=== PATIENT | male | born 1940 | race Caucasian/White ===

== ENCOUNTER → 2017-07-27 09:47 | Outpatient (CLI) | payer MEDICARE, SELFPAY ==
[2017-07-27 13:12] LABS: Absolute Lymphocyte Count 2.08 X10^3/ul (0.83-4.51); Absolute Neutrophil Count 6.6 X10^3/uL (2.0-7.7); Basophil# 0.03 X10^3/uL; Basophil% 0.3 % (0-1); Eosinophil# 0.07 X10^3/uL; Eosinophils% 0.7 % (0-5); Hematocrit 47.7 % (40-54); Hemoglobin 16.4 g/dl (13.0-16.5); Lymphocyte # 2.08 X10^3/ul (4.0); Lymphocyte % 21.4 % (19-41); Mean Corp Hgb Conc 34.4 g/gl (32-36); Mean Corpuscular Hgb 30.7 pg (27.0-32.0); Mean Corpuscular Volume 89.3 fL (80-94); Mean Platelet Vol. 11.6 fl (6.2-12.0); Monocyte# 0.85 X10^3/uL; Monocyte% 8.8 % (0-10); Neutrophil # 6.64 X10^3/uL (2.7-7.7); Neutrophil % 68.4 % (47-70); Platelet Count 273 K/mm3 (150-450); RBC Distribution Width CV 13.1 % (11.6-14.6); RBC Distribution Width SD 42.7 fl (35.1-43.9); Red Blood Count 5.34 M/mm3 (4.6-6.2); White Blood Count 9.7 K/mm3 (4.4-11.0)
[2017-07-27 13:13] LABS: POSITIVE COUNT NO; POSITIVE DIFFERENTIAL NO; POSITIVE MORPHOLOGY NO
[2017-07-27 13:39] LABS: ALB/GLOB Ratio 0.9 RATIO (0.9-2.4); AST(SGOT) 31 U/L (15-37); Alanine Aminotransfer ALT/SGPT 49 U/L (16-61); Albumin, Serum 3.8 g/dL (3.2-5.0); Alkaline Phosphatase 70 U/L (45-117); Anion Gap 13 (5-15); BUN 21 mg/dL (7-18); BUN/Creat Ratio 15.8 RATIO (10-20); Calcium,Total 8.9 mg/dL (8.5-10.1); Chloride 99 mmol/L (98-107); Creatinine, Serum 1.33 mg/dL (0.70-1.30); EST Glomerular Filtration Rate 56 mL/min (>60); Est Glom Filt Rate - Afr Amer 67 mL/min (>60); Globulin 4.2 g/dL (2.2-4.2); Glucose 326 mg/dL (74-106); Sodium Level 136 mmol/L (136-145); Thyroid Stim Hormone (TSH) 2.21 uIU/mL (0.358-3.74)
== END ==
PROVIDERS: Family Provider Family Medicine Geriatric Medicine; PCP Family Medicine Geriatric Medicine; Visit Provider Family Medicine Geriatric Medicine
DX: E11.9 Type 2 diabetes mellitus without complications (principal); I10 Essential (primary) hypertension
CPT/HCPCS: 36415; 80053; 84443; 85025

== ENCOUNTER → 2017-08-21 06:57 | Outpatient (CLI) | payer MEDICARE, SELFPAY ==
[2017-08-21 08:08] LABS: Albumin, Serum 3.7 g/dL (3.2-5.0); BUN 31 mg/dL (7-18); BUN/Creat Ratio 23.7 RATIO (10-20); Calcium,Total 9.3 mg/dL (8.5-10.1); Chloride 102 mmol/L (98-107); Creatinine, Serum 1.31 mg/dL (0.70-1.30); EST Glomerular Filtration Rate 57 mL/min (>60); Est Glom Filt Rate - Afr Amer 68 mL/min (>60); Glucose 260 mg/dL (74-106); Phosphorus 3.2 mg/dL (2.5-4.9); Sodium Level 137 mmol/L (136-145)
[2017-08-21 08:21] LABS: Protein, Urine (Random) 15.9 mg/dL (<11.9); Protein:Creat Ratio 356 mg/g CRE (0-200)
== END ==
PROVIDERS: Family Provider Family Medicine Geriatric Medicine; PCP Family Medicine Geriatric Medicine; Visit Provider Internal Medicine Nephrology
DX: E11.22 Type 2 diabetes mellitus with diabetic chronic kidney disease (principal); N18.3 Chronic kidney disease, stage 3 (moderate)
CPT/HCPCS: 36415; 80069; 82570; 84156

== ENCOUNTER → 2018-09-04 14:13 | Outpatient (CLI) | payer MEDICARE, SELFPAY ==
[2018-09-04 17:33] LABS: Absolute Neutrophil Count 5.3 X10^3/uL (2.0-7.7); Basophil# 0.01 X10^3/uL; Basophil% 0.1 % (0-1); Eosinophil# 0.08 X10^3/uL; Eosinophils% 0.9 % (0-5); Hematocrit 51.2 % (40-54); Lymphocyte % 27.2 % (19-41); Mean Corp Hgb Conc 33.2 g/gl (32-36); Mean Corpuscular Hgb 28.9 pg (27.0-32.0); Mean Corpuscular Volume 87.1 fL (80-94); Mean Platelet Vol. 11.6 fl (6.2-12.0); Monocyte# 0.95 X10^3/uL; Monocyte% 10.8 % (0-10); Neutrophil # 5.34 X10^3/uL (2.7-7.7); Neutrophil % 60.7 % (47-70); Platelet Count 276 K/mm3 (150-450); RBC Distribution Width CV 13.5 % (11.6-14.6); RBC Distribution Width SD 42.9 fl (35.1-43.9); Red Blood Count 5.88 M/mm3 (4.6-6.2); White Blood Count 8.8 K/mm3 (4.4-11.0)
[2018-09-04 17:49] LABS: ALB/GLOB Ratio 0.9 RATIO (0.9-2.4); AST(SGOT) 22 U/L (15-37); Alanine Aminotransfer ALT/SGPT 33 U/L (16-61); Alkaline Phosphatase 70 U/L (45-117); Anion Gap 8 (5-15); BUN 29 mg/dL (7-18); Calcium,Total 9.3 mg/dL (8.5-10.1); Chloride 100 mmol/L (98-107); Creatinine, Serum 1.32 mg/dL (0.70-1.30); EST Glomerular Filtration Rate 56 mL/min (>60); Est Glom Filt Rate - Afr Amer 68 mL/min (>60); Globulin 4.6 g/dL (2.2-4.2); Glucose 185 mg/dL (74-106); Potassium 4.2 mmol/L (3.5-5.1); Protein, Total 8.6 g/dL (6.4-8.2); Sodium Level 131 mmol/L (136-145); Thyroid Stim Hormone (TSH) 4.48 uIU/mL (0.358-3.74); Vitamin D,25 Hydroxy 16.6 ng/mL (29.95-100.01)
[2018-09-04 17:57] LABS: POSITIVE COUNT NO; POSITIVE DIFFERENTIAL NO; POSITIVE MORPHOLOGY NO
== END ==
PROVIDERS: Family Provider Family Medicine Geriatric Medicine; PCP Family Medicine Geriatric Medicine; Visit Provider Family Medicine Geriatric Medicine
DX: E11.9 Type 2 diabetes mellitus without complications (principal); E55.9 Vitamin D deficiency, unspecified; I10 Essential (primary) hypertension
CPT/HCPCS: 36415; 80053; 82306; 84443; 85025

== ENCOUNTER → 2018-10-17 | Outpatient (CLI) | payer MEDICARE, SELFPAY ==
[2018-10-17 13:01] LABS: Thyroid Stim Hormone (TSH) 2.27 uIU/mL (0.358-3.74)
== END | disposition home or self-care (01) ==
LOC: POLAB3 09:19
PROVIDERS: Family Provider Family Medicine Geriatric Medicine; PCP Family Medicine Geriatric Medicine; Visit Provider Family Medicine Geriatric Medicine
DX: E03.9 Hypothyroidism, unspecified (principal)
CPT/HCPCS: 36415; 84443

== ENCOUNTER → 2018-12-04 | Outpatient (CLI) | payer MEDICARE, SELFPAY ==
[2018-12-04 15:50] LABS: Absolute Lymphocyte Count 3.07 X10^3/ul (0.83-4.51); Absolute Neutrophil Count 5.2 X10^3/uL (2.0-7.7); Basophil# 0.01 X10^3/uL; Basophil% 0.1 % (0-1); Eosinophil# 0.08 X10^3/uL; Eosinophils% 0.9 % (0-5); Hematocrit 42.7 % (40-54); Hemoglobin 14.5 g/dl (13.0-16.5); Lymphocyte # 3.07 X10^3/ul (4.0); Lymphocyte % 33.1 % (19-41); Mean Corpuscular Hgb 30.2 pg (27.0-32.0); Mean Platelet Vol. 11.4 fl (6.2-12.0); Monocyte# 0.87 X10^3/uL; Monocyte% 9.4 % (0-10); Neutrophil # 5.22 X10^3/uL (2.7-7.7); Neutrophil % 56.2 % (47-70); Platelet Count 273 K/mm3 (150-450); RBC Distribution Width CV 14.4 % (11.6-14.6); RBC Distribution Width SD 46.7 fl (35.1-43.9); White Blood Count 9.3 K/mm3 (4.4-11.0)
[2018-12-04 15:53] LABS: POSITIVE COUNT NO; POSITIVE DIFFERENTIAL NO; POSITIVE MORPHOLOGY NO
[2018-12-04 16:21] LABS: ALB/GLOB Ratio 0.9 RATIO (0.9-2.4); AST(SGOT) 24 U/L (15-37); Alanine Aminotransfer ALT/SGPT 32 U/L (16-61); Albumin, Serum 3.9 g/dL (3.2-5.0); Alkaline Phosphatase 70 U/L (45-117); Anion Gap 14 (5-15); BUN 23 mg/dL (7-18); BUN/Creat Ratio 17.4 RATIO (10-20); Calcium,Total 8.9 mg/dL (8.5-10.1); Chloride 100 mmol/L (98-107); Creatinine, Serum 1.32 mg/dL (0.70-1.30); EST Glomerular Filtration Rate 56 mL/min (>60); Est Glom Filt Rate - Afr Amer 68 mL/min (>60); Globulin 4.3 g/dL (2.2-4.2); Glucose 94 mg/dL (74-106); Potassium 4.1 mmol/L (3.5-5.1); Protein, Total 8.2 g/dL (6.4-8.2); Sodium Level 139 mmol/L (136-145); Thyroid Stim Hormone (TSH) 3.03 uIU/mL (0.358-3.74)
== END | disposition home or self-care (01) ==
LOC: POLAB3 09:14
PROVIDERS: Visit Provider Family Medicine Geriatric Medicine
DX: E11.9 Type 2 diabetes mellitus without complications (principal); I10 Essential (primary) hypertension
CPT/HCPCS: 36415; 80053; 84443; 85025

== ENCOUNTER → 2019-03-04 10:14 | Outpatient (CLI) | payer MEDICARE, SELFPAY ==
[2019-03-04 17:11] LABS: Absolute Lymphocyte Count 2.01 X10^3/uL (0.83-4.51); Basophil# 0.02 X10^3/uL; Basophil% 0.2 % (0-1); Eosinophil# 0.08 X10^3/uL; Eosinophils% 0.9 % (0-5); Hematocrit 43.8 % (40-54); Hemoglobin 14.2 g/dL (13.0-16.5); Lymphocyte # 2.01 X10^3/ul (4.0); Lymphocyte % 22.1 % (19-41); Mean Corp Hgb Conc 32.4 g/dL (32-36); Mean Corpuscular Volume 92.6 fL (80-94); Monocyte# 0.96 X10^3/uL; Monocyte% 10.5 % (0-10); NRBC Flagged by Analyzer 0 % (0-5); Neutrophil % 65.9 % (47-70); Platelet Count 289 K/mm3 (150-450); RBC Distribution Width CV 13.5 % (11.6-14.6); RBC Distribution Width SD 45.9 fl (35.1-43.9); Red Blood Count 4.73 M/mm3 (4.6-6.2); White Blood Count 9.1 K/mm3 (4.4-11.0)
[2019-03-04 17:33] LABS: ALB/GLOB Ratio 0.9 RATIO (0.9-2.4); AST(SGOT) 24 U/L (15-37); Alanine Aminotransfer ALT/SGPT 29 U/L (16-61); Albumin, Serum 3.8 g/dL (3.2-5.0); Alkaline Phosphatase 67 U/L (45-117); Anion Gap 13 (5-15); BUN 19 mg/dL (7-18); BUN/Creat Ratio 13.7 RATIO (10-20); Calcium,Total 8.9 mg/dL (8.5-10.1); Chloride 102 mmol/L (98-107); Creatinine, Serum 1.39 mg/dL (0.70-1.30); EST Glomerular Filtration Rate 53 mL/min (>60); Est Glom Filt Rate - Afr Amer 64 mL/min (>60); Globulin 4.3 g/dL (2.2-4.2); Glucose 139 mg/dL (74-106); Potassium 4.2 mmol/L (3.5-5.1); Protein, Total 8.1 g/dL (6.4-8.2); Sodium Level 138 mmol/L (136-145); Thyroid Stim Hormone (TSH) 3.05 uIU/mL (0.358-3.74)
[2019-03-04 17:34] LABS: Vitamin D,25 Hydroxy 25.3 ng/mL (29.95-100.01)
== END ==
PROVIDERS: Family Provider Family Medicine Geriatric Medicine; PCP Family Medicine Geriatric Medicine; Visit Provider Family Medicine Geriatric Medicine
DX: E11.9 Type 2 diabetes mellitus without complications (principal); E55.9 Vitamin D deficiency, unspecified; I10 Essential (primary) hypertension
CPT/HCPCS: 36415; 80053; 82306; 84443; 85025

== ENCOUNTER → 2019-06-03 11:24 | Outpatient (CLI) | payer MEDICARE, SELFPAY ==
[2019-06-03 12:07] LABS: Absolute Lymphocyte Count 2.49 X10^3/uL (0.83-4.51); Basophil# 0.02 X10^3/uL; Basophil% 0.2 % (0-1); Eosinophil# 0.08 X10^3/uL; Eosinophils% 0.8 % (0-5); Hematocrit 42.5 % (40-54); Hemoglobin 13.9 g/dL (13.0-16.5); Lymphocyte # 2.49 X10^3/ul (4.0); Mean Corp Hgb Conc 32.7 g/dL (32-36); Mean Corpuscular Hgb 29.3 pg (27.0-32.0); Mean Corpuscular Volume 89.7 fL (80-94); Mean Platelet Vol. 10.4 fl (6.2-12.0); Monocyte# 0.96 X10^3/uL; NRBC Flagged by Analyzer 0 % (0-5); Neutrophil # 5.97 X10^3/uL (2.7-7.7); Neutrophil % 62.6 % (47-70); Platelet Count 321 K/mm3 (150-450); RBC Distribution Width CV 12.9 % (11.6-14.6); Red Blood Count 4.74 M/mm3 (4.6-6.2); White Blood Count 9.6 K/mm3 (4.4-11.0)
[2019-06-03 13:09] LABS: ALB/GLOB Ratio 0.8 RATIO (0.9-2.4); AST(SGOT) 18 U/L (15-37); Alanine Aminotransfer ALT/SGPT 29 U/L (16-61); Albumin, Serum 3.7 g/dL (3.2-5.0); Alkaline Phosphatase 75 U/L (45-117); Anion Gap 13 (5-15); BUN 17 mg/dL (7-18); BUN/Creat Ratio 13.4 RATIO (10-20); Calcium,Total 8.7 mg/dL (8.5-10.1); Chloride 100 mmol/L (98-107); Creatinine, Serum 1.27 mg/dL (0.70-1.30); EST Glomerular Filtration Rate 58 mL/min (>60); Est Glom Filt Rate - Afr Amer 71 mL/min (>60); Globulin 4.5 g/dL (2.2-4.2); Glucose 150 mg/dL (74-106); Protein, Total 8.2 g/dL (6.4-8.2); Sodium Level 134 mmol/L (136-145); Thyroid Stim Hormone (TSH) 3.26 uIU/mL (0.358-3.74)
== END ==
PROVIDERS: Family Provider Family Medicine Geriatric Medicine; PCP Family Medicine Geriatric Medicine; Visit Provider Family Medicine Geriatric Medicine
DX: E11.9 Type 2 diabetes mellitus without complications (principal); I10 Essential (primary) hypertension; E55.9 Vitamin D deficiency, unspecified
CPT/HCPCS: 36415; 80053; 82306; 84443; 85025

== ENCOUNTER 2019-08-21 14:42 | Emergency (ER) | payer MEDICARE, SELFPAY ==
[2019-08-21] VITALS (9 sets, daily range): BP systolic 93–111; BP diastolic 47–69; PULSE 95–115; RESP 15–18; TEMP 36.3–36.9; O2SAT 97–100; BMI 27.3
--- NOTE | 2019-08-21 15:19 | EKG12_ITS ---
Test Reason : FALL Blood Pressure : / mmHG Vent. Rate : 105 BPM Atrial Rate : 105 BPM P-R Int : 124 ms QRS Dur : 092 ms QT Int : 354 ms P-R-T Axes : 030 061 045 degrees QTc Int : 467 ms Sinus tachycardia Otherwise normal ECG Confirmed by ALINA LATHAM, SRINIVASAN ([id number]), photography editor RENATO BURGOS ([id number]) on 08/23/2019 8:05:51 AM Referred By: WOUND Confirmed By:LASHON FULLER MD
[2019-08-21 15:32] LABS: Absolute Lymphocyte Count 1.34 X10^3/uL (0.83-4.51); Absolute Neutrophil Count 23.8 X10^3/uL (2.0-7.7); Basophil# 0.04 X10^3/uL; Basophil% 0.1 % (0-1); Eosinophil# 0.02 X10^3/uL; Eosinophils% 0.1 % (0-5); Hematocrit 35.3 % (40-54); Hemoglobin 11.8 g/dL (13.0-16.5); Lymphocyte # 1.34 X10^3/ul (4.0); Lymphocyte % 4.9 % (19-41); Mean Corp Hgb Conc 33.4 g/dL (32-36); Mean Corpuscular Hgb 29.1 pg (27.0-32.0); Mean Corpuscular Volume 86.9 fL (80-94); Mean Platelet Vol. 9.6 fl (6.2-12.0); Monocyte# 1.41 X10^3/uL; Monocyte% 5.2 % (0-10); NRBC Flagged by Analyzer 0 % (0-5); Neutrophil # 23.81 X10^3/uL (2.7-7.7); Neutrophil % 87.3 % (47-70); POSITIVE DIFFERENTIAL YES; Platelet Count 494 K/mm3 (150-450); RBC Distribution Width CV 12.8 % (11.6-14.6); Red Blood Count 4.06 M/mm3 (4.6-6.2); White Blood Count 27.3 K/mm3 (4.4-11.0)
[2019-08-21 15:39] LABS: International Normalized Ratio 1.3; Prothrombin Time (Protime)PT. 16.4 SECONDS (11.7-14.9)
[2019-08-21 15:40] LABS: Partial Thromboplast Time 36.3 Seconds (24.1-36.2)
[2019-08-21 15:45] LABS: Differential Indicated SCAN CRITERIA MET
--- NOTE | 2019-08-21 15:50 | RAD_ITS ---
STUDY: X-RAY - RIGHT FOOT CLINICAL: Male, 79 years old. NECROTIC TOE AND FOOT AREA TECHNIQUE: 3 view(s) of the foot. COMPARISON: None. FINDINGS: Normal talus, and tarsal bones. Small calcaneal spur and posterior enthesophyte. Normal visualized subtalar, talonavicular, calcaneocuboid, tarsal and tarsometatarsal articulations. Normal metatarsi. Normal metatarsophalangeal joint of the great toe. Normal tibial and fibular sesamoid bones. Normal interphalangeal joint of the great toe. Normal phalanges of the great toe. Normal second through fifth metatarsophalangeal joints. Normal interphalangeal joints and phalanges of the lesser toes. Diffuse arterial calcification noted. There is diffuse soft tissue swelling of the hind and mid foot with scattered air bubbles consistent with gangrenous changes. RAD/Foot min 3 Views IMPRESSION: Soft tissue swelling and gangrenous changes without definitive evidence for acute osteomyelitis. Would recommend three-phase bone scan or MRI for further evaluation if clinically warranted Electronically Signed: Dakota Kendall MD at 16:09 EST , Service support ,
[2019-08-21 16:12] LABS: Differential Comment SCANNED
[2019-08-21 16:14] LABS: Erythrocyte Sedimentation Rate 28 mm/hr (0-20)
[2019-08-21] MEDS: 0.9% Normal Saline 1,000 ML 999 ML IV (16:38)
--- NOTE | 2019-08-21 16:42 | ED.VISSUMM ---
- ER Visit Summary Date of Service: 08/21/19 Chief Complaint: Right foot infection History of Present Illness: The patient is a [address] Reyes. He is a poor informant. He reports that he has an infection to his right foot that began 1 week ago. He denies any pain. He does have a history of diabetes. Patient denies any constitutional symptoms. No fever, chills, nausea, or vomiting. Physical Examination: Vitals: Stable. Afebrile. General: Well-nourished and well-developed. Head: Normocephalic atraumatic. Neck: Supple, no lymphadenopathy. No JVD. Nontender. Cardiovascular: Regular rate and rhythm. No murmurs. Respiratory: No respiratory distress. Clear to auscultation bilaterally. Abdominal: Soft, nontender, nondistended, normal bowel sounds. No guarding, rebound, or peritoneal signs. Back: Nontender. Extremities: No palpable DP pulse on the right. 1+ on the left. His foot is not pale or cold. He has dry gangrenous second and third toes on the right. The fourth and fifth toes are black. The sole of his foot is black up over the toes and extends up into the arch., no edema. Skin: Normal color, no rash. Neurologic: Alert and oriented ?3. Cranial nerves II through XII are intact. Normal strength and sensation. Psych: Normal affect. Test Results: EKG is sinus tach at 105. Is unchanged as 2001. CBC shows a white count of 27.3 with 87% segment neutrophils, 5 lymphocytes, immature granulocytes of 2.4%. H&H is 11.8 and 35.3, platelets 494. INR is 1.3. PTT is 36.3. Lactic acid is 2.7. Clinical Impression(s) from Imaging Studies Foot X-Ray 08/21/19 15:50 IMPRESSION: Soft tissue swelling and gangrenous changes without definitive evidence for acute osteomyelitis. Would recommend three-phase bone scan or MRI for further evaluation if clinically warranted Electronically Signed: Dakota Kendall MD at 16:09 EST , Service support , Emergency Department Course and Treatment: Patient had an IV placed. He was given a liter and half of normal saline. His blood pressure is now 115 systolic. His heart rate is into the 90s. He is given Zosyn, vancomycin, clindamycin IV. He denied any pain. Treatment Plan: Patient was discussed with Dr. Cantrell who asked that we transfer him to a tertiary care center. He decided on [facility]. He was discussed with Dr. Ramirez and has been accepted. He will be transferred for further evaluation and treatment. Disposition: Transferred in serious condition. Impression: 1. Severe sepsis. 2. Gangrenous right second and third toes. 3. Diabetic foot ulcer. 4. Critical care time 33 minutes. This note was generated with [employer] dictation software. It may contain incorrect words, spelling, and punctuation that were not noted in review of the chart prior to signing ED Disposition - Plan for ED Patient: Referrals: Dexter Reyes Chi, MD [Primary Care Provider] -
[2019-08-21 16:48] LABS: BUN 36 mg/dL (7-18); Glucose 250 mg/dL (74-106)
[2019-08-21 16:49] LABS: ALB/GLOB Ratio 0.4 RATIO (0.9-2.4); AST(SGOT) 48 U/L (15-37); Albumin, Serum 2.4 g/dL (3.2-5.0); Alkaline Phosphatase 137 U/L (45-117); BUN/Creat Ratio 23.4 RATIO (10-20); Calcium,Total 8.2 mg/dL (8.5-10.1); Creatinine, Serum 1.54 mg/dL (0.70-1.30); Estimated Creatinine Clearance 40.82 ml/min; Globulin 6.3 g/dL (2.2-4.2); Protein, Total 8.7 g/dL (6.4-8.2)
[2019-08-21 16:50] LABS: Alanine Aminotransfer ALT/SGPT 68 U/L (16-61); Anion Gap 10 (5-15); Chloride 96 mmol/L (98-107); Potassium 4.8 mmol/L (3.5-5.1); Sodium Level 128 mmol/L (136-145)
[2019-08-21 16:52] LABS: Lactic Acid 2.7 mmol/L (0.4-1.9)
[2019-08-21 16:52] LABS: EST Glomerular Filtration Rate 47 mL/min (>60); Est Glom Filt Rate - Afr Amer 57 mL/min (>60)
[2019-08-21 17:45] LABS: M R Staph aureus DNA By PCR Negative (Negative); Probe Check PASS; Specimen Processing Control PASS; Staph aureus DNA By PCR NEGATIVE (Negative)
[2019-08-21 19:16] LABS: Reflex Lactate? Y
== END 2019-08-21 17:12 | disposition short-term general hospital (02) ==
LOC: ED 15:37
PROVIDERS: Emergency Provider Emergency Medicine; PCP Family Medicine Geriatric Medicine
DX: A41.9 Sepsis, unspecified organism (principal); R65.20 Severe sepsis without septic shock; E11.52 Type 2 diabetes mellitus with diabetic peripheral angiopathy with gangrene; E11.621 Type 2 diabetes mellitus with foot ulcer; I96 Gangrene, not elsewhere classified; I10 Essential (primary) hypertension; Z87.891 Personal history of nicotine dependence
CPT/HCPCS: 73630; 80053; 83605; 85025; 85610; 85652; 85730; 86140; 87040; 87070; 87205; 87640; 93005; 94760; 96365; 96366; 96367; 99285; J7030; J7050; A4216

== ENCOUNTER 2019-09-11 14:23 | Inpatient (IN) | payer MEDICARE, SELFPAY ==
[2019-08-21 14:44] VITALS: BMI 27.3
[2019-09-11 14:36] VITALS: BP 115/54; PULSE 88; RESP 18; TEMP 37.6; O2SAT 96
[2019-09-11 14:38] VITALS: BMI 26.9
[2019-09-11 16:34] VITALS: BMI 28.2
[2019-09-11] MEDS: Insulin Lispro 100 UNIT/ML INSULN.PEN 6 UNIT SC (16:42)
[2019-09-11] MEDS: Glimepiride 4 MG Tablet PO (16:42)
[2019-09-11 17:25] LABS: Bedside Glucose 92 mg/dL (70-110)
[2019-09-11 18:29] LABS: Bacteria 0 SEEN /hpf (None Seen); Mucous, Urine 0 SEEN /hpf (<or=2+); Red Blood Cells-Urine 0 SEEN /hpf (0-5); Squamous Epithelial Cells - UA 0 SEEN /hpf (0-5)
[2019-09-11 18:35] LABS: Color, Urine Yellow (Yellow); Glucose, Dipstick Normal (Normal); Ketone-Dipstick Negative (Negative); Leukocyte Esterase-Dipstick Negative /ul (Negative); Nitrite-Dipstick Negative (Negative); Occult Blood-Urine Negative /ul (Negative); Protein-Dipstick 15 mg/dl (Negative); Specific Gravity, Urine 1.005 (1.002-1.030); Urine Bilirubin Dipstick Negative (Negative); Urine Clarity Clear (Clear); Urine Urobilinogen Normal (Normal)
[2019-09-11 18:40] VITALS: O2SAT 96
[2019-09-11 18:41] LABS: White Blood Cells 0-5 SEEN /hpf (0-5)
[2019-09-11] MEDS: metFORMIN HCl 1,000 MG Tablet 1000 MG PO (19:01)
[2019-09-11] MEDS: oxyCODONE 5 MG Tablet PO (20:31)
[2019-09-11 20:34] VITALS: BP 108/70; PULSE 91; RESP 18; TEMP 37.1; O2SAT 95
[2019-09-11 22:00] VITALS: RESP 18; O2SAT 95
[2019-09-11] MEDS: Heparin Injection (Vial) 5,000 UNIT/ML VIAL 5000 UNIT SC (22:04)
[2019-09-11] MEDS: Senna/Docusate Sodium 1 Tablet 2 TABLET PO (22:06)
[2019-09-11] MEDS: Acetaminophen 500 MG Tablet 1000 MG PO (22:06)
[2019-09-11] MEDS: Atorvastatin Calcium 40 MG Tablet PO (22:06)
[2019-09-11] MEDS: Gabapentin 100 MG Capsule PO (22:06)
[2019-09-11 22:31] LABS: Bedside Glucose 217 mg/dL (70-110)
[2019-09-12 05:06] LABS: Absolute Lymphocyte Count 2.14 X10^3/uL (0.83-4.51); Absolute Neutrophil Count 5.8 X10^3/uL (2.0-7.7); Basophil# 0.02 X10^3/uL; Basophil% 0.2 % (0-1); Eosinophil# 0.13 X10^3/uL; Eosinophils% 1.3 % (0-5); Hemoglobin 8.8 g/dL (13.0-16.5); Lymphocyte # 2.14 X10^3/ul (4.0); Lymphocyte % 21.9 % (19-41); Mean Corp Hgb Conc 31.4 g/dL (32-36); Mean Corpuscular Hgb 28.9 pg (27.0-32.0); Mean Corpuscular Volume 92.1 fL (80-94); Mean Platelet Vol. 8.8 fl (6.2-12.0); Monocyte# 1.43 X10^3/uL; Monocyte% 14.6 % (0-10); NRBC Flagged by Analyzer 0.3 % (0-5); Neutrophil # 5.82 X10^3/uL (2.7-7.7); Neutrophil % 59.6 % (47-70); Platelet Count 456 K/mm3 (150-450); RBC Distribution Width CV 15.9 % (11.6-14.6); RBC Distribution Width SD 52.1 fl (35.1-43.9); Red Blood Count 3.04 M/mm3 (4.6-6.2); White Blood Count 9.8 K/mm3 (4.4-11.0)
[2019-09-12 05:27] LABS: ALB/GLOB Ratio 0.4 RATIO (0.9-2.4); AST(SGOT) 79 U/L (15-37); Alanine Aminotransfer ALT/SGPT 55 U/L (16-61); Albumin, Serum 2.3 g/dL (3.2-5.0); Alkaline Phosphatase 89 U/L (45-117); Anion Gap 9 (5-15); BUN 31 mg/dL (7-18); BUN/Creat Ratio 34.6 RATIO (10-20); Calcium,Total 8.6 mg/dL (8.5-10.1); Chloride 100 mmol/L (98-107); EST Glomerular Filtration Rate 87 mL/min (>60); Est Glom Filt Rate - Afr Amer 106 mL/min (>60); Estimated Creatinine Clearance 69.85 ml/min; Globulin 5.3 g/dL (2.2-4.2); Glucose 174 mg/dL (74-106); Magnesium 1.3 mg/dL (1.6-2.6); Protein, Total 7.6 g/dL (6.4-8.2); Sodium Level 137 mmol/L (136-145)
[2019-09-12] MEDS: Acetaminophen 500 MG Tablet 1000 MG PO ×3 (06:25→21:22)
[2019-09-12] MEDS: Levothyroxine 25 MCG TABLET PO (06:25)
[2019-09-12] MEDS: Gabapentin 100 MG Capsule PO ×3 (06:25→21:23)
[2019-09-12 07:00] LABS: Bedside Glucose 144 mg/dL (70-110)
[2019-09-12 07:16] VITALS: O2SAT 92
[2019-09-12] MEDS: oxyCODONE 5 MG Tablet PO ×2 (07:47→20:45)
[2019-09-12] MEDS: Lisinopril 10 MG Tablet PO (07:47)
[2019-09-12] MEDS: Pioglitazone Hydrochloride 30 MG Tablet PO (07:47)
[2019-09-12] MEDS: Senna/Docusate Sodium 1 Tablet 2 TABLET PO ×2 (07:47→21:22)
[2019-09-12] MEDS: Aspirin E.C. 81 MG Tablet PO (07:49)
[2019-09-12] MEDS: metFORMIN HCl 1,000 MG Tablet 1000 MG PO ×2 (07:49→16:56)
[2019-09-12] MEDS: Insulin Lispro 100 UNIT/ML INSULN.PEN 6 UNIT SC ×3 (07:50→16:56)
[2019-09-12] MEDS: Glimepiride 4 MG Tablet PO (07:50)
[2019-09-12] MEDS: Heparin Injection (Vial) 5,000 UNIT/ML VIAL 5000 UNIT SC (07:50)
[2019-09-12 08:14] VITALS: BP 155/64; PULSE 103; RESP 18; TEMP 36.8; O2SAT 96
--- NOTE | 2019-09-12 08:35 | PCM.HP.STD ---
Problem List (1) Diabetes mellitus type 2, uncontrolled Status: Chronic Qualifiers: Glycemic state: with hyperglycemia Qualified Code(s): E11.65 - Type 2 diabetes mellitus with hyperglycemia (2) Peripheral vascular disease Status: Chronic (3) History of right below knee amputation Status: Chronic Comment: 09/05/2019 (4) Coronary artery disease Status: Chronic (5) Hypertension Status: Chronic Qualifiers: Hypertension type: essential hypertension Qualified Code(s): I10 - Essential (primary) hypertension (6) Overweight (BMI 25.0-29.9) Status: Chronic (7) Malnutrition Status: Acute Qualifiers: Malnutrition type: protein-calorie malnutrition (8) Hypothyroidism Status: Acute (9) Hyperlipidemia Status: Acute (10) Tobacco dependence in remission Status: Chronic Comment: quit in (11) Edentulous Status: Chronic (12) H/O endarterectomy Status: Acute Comment: R femoral on 09/02/19 (13) Acute blood loss anemia Status: Acute (14) Vitamin D deficiency Status: Chronic (15) Decubitus ulcer, stage II Status: Acute Qualifiers: Laterality: left Comment: lateral malleolus History of Present Illness Date of Admission: 09/11/19 Chief Complaint: Debility secondary to right BKA on 09/05/2019 for necrotic R foot and PVD The patient is a 79 year old M with a history of poorly controlled diabetes mellitus, peripheral arterial disease, coronary artery disease, hypertension, obesity, hyperlipidemia, hypothyroidism, remote smoking history (quit in the mid ) and recent R BKA and R femoral artery endarterectomy at [facility] who was admitted to the inpt rehab unit at [facility] on 09/11/19 for > 3 hours of therapy daily to restore him at or near his prior level of function. He lives alone in a mobile home. He has 4 steps to enter his home but there is also a ramp. He was using a WC for several weeks prior to coming to the ED on 08/21/19. He has a Rollator and manual wheelchair at home. He has 2 children who can provide some assistance to him when he returns home. He tells me that he had a stress test at [facility] and it was negative. This was not part of the packet sent to us. He also relates that his R leg was the good Leg and he has knee and hip pain on the left. He denied R leg pain to me at the time of my assessment. He is sleeping well and he denies N/V/abd pain/C/SOB/CP. No cough and no fevers. He was at [facility] for a period of 3 weeks. All lab was personally reviewed today. The hemoglobin is 8.8 with an MCV of 92. The RDW is increased. Platelets are mildly increased at 456 and this is likely secondary to inflammation. White blood cell count is 9.8 with an unremarkable differential. Hemoglobin on 08/21/2019 was 11.8 which was down from 13.9 on 06/03/2019. CMP shows an increased BUN at 31 with a creatinine of 0.9. Magnesium is low at 1.3. AST is mildly increased at 79 (likely due to muscle and not liver). Lipid panel shows triglycerides of 153, total cholesterol of 80, LDL of 27 and a low HDL at 22. UA was negative for infection and there were 0 RBCs. He has protein in his urine. He was only checking his BS once a day at home and this was fasting. He admits to drinking chocolate milk. He is going to need diet education. Past Medical History Past Medical History (Chronic Problems): Chronic Problems (Last Reviewed 09/12/19 @ 08:[address] Kyara King DO) Diabetes mellitus type 2, uncontrolled (Chronic) Peripheral vascular disease (Chronic) History of right below knee amputation (Chronic) 09/05/2019 Coronary artery disease (Chronic) Hypertension (Chronic) Overweight (BMI 25.0-29.9) (Chronic) Tobacco dependence in remission (Chronic) quit in Edentulous (Chronic) Vitamin D deficiency (Chronic) Medical History: Medical History (Last Reviewed 09/12/19 @ 08:[address] Kyara King DO) Diabetes E11.9 Dyslipidemia E78.5 Gangrene of right foot I96 Hypothyroid E03.9 Hypertension I10 Allergies No Known Allergies Allergy (Verified 08/21/19 14:43) Home Medications: Ambulatory Orders Medication Instructions Recorded Acetaminophen [Tylenol] 1,000 mg PO Q8 09/11/19 Aspir 81 1 tab PO DAILY 09/11/19 Atorvastatin Calcium [Lipitor] 40 mg PO DAILY 09/11/19 Gabapentin [Neurontin] 1 cap PO Q8 09/11/19 Glimepiride 4 mg PO BID 09/11/19 Levothyroxine [Synthroid] 25 mcg PO DAILY 09/11/19 Lisinopril [Prinivil] 10 mg PO DAILY 09/11/19 Metformin HCl 1,000 mg PO BID 09/11/19 Oxycodone [Oxyir] 5 mg PO Q6H PRN PRN 09/11/19 Pioglitazone [Actos] 30 mg PO DAILY 09/11/19 Surgical History: Surgical History (Last Reviewed 09/12/19 @ 08:[address] Kyara King, DO) Amputation below knee S88.119A Psychiatric History: No pertinent psych hx Lives: Alone Smoking Status: Former smoker - quit in the Tobacco Use: Non-smoker Alcohol: Heavy - he used to drink more heavily. No he drinks 1-2 beers 2-3 times a week at the 80 [facility] Drugs: None - *Family History Maternal History Items: No pertinent history Paternal History Items: No pertinent history, - - he is 79 years old and FH (which he knows little about is not really relavent at this stage of his life Review of Systems Constitutional: Reports: Weakness. Denies: Anorexia, Chills, Fever, Malaise, Weight Change Eyes: Denies: Eyelid Inflammation HEENT: Denies: Difficulty Swallowing, Head Aches, Nasal Congestion, Sinus Congestion, Sinus Drainage, Sore Throat Cardiovascular: Denies: Chest Pain, Chest Pressure, Chest Tightness, Edema, Light Headedness, Orthopnea, Palpitations, Paroxysmal Noc. Dyspnea, Syncope Respiratory: Reports: Shortness of Breath, Shortness of breath upon exertion. Denies: Cough, Pleuritic Pain, Shortness of breath at rest, Sputum production Gastrointestinal: Denies: Abdominal Pain, Constipation, Diarrhea, Nausea, Vomiting Genitourinary: Denies: Dysuria, Hesitancy, Retention Musculoskeletal: Reports: Joint Pain - Left hip and knee. Denies: Joint Tenderness Skin: Reports: Wounds - Incision for R BKA and unstageable decub of the L lateral ankle due to eschar. Denies: Rash Neurological: Denies: Focal weakness, Numbness, Tingling, Seizures Psychiatric: Denies: Anxiety, Depression, Homicidal Ideations, Suicidal Ideations Hematologic/ Lymphatic: Denies: Easy Bruising, Easy Bleeding, Hx of blood clot VTE Information - Inpt Only VTE Present on Admission: No VTE Mechan Device Prophylaxis: Knee High EDI Hose VTE Pharm Prophylaxis ordered?: Yes Patient Problems: Active and Suspected Problems (Last Reviewed 09/12/19 @ 08:[address] Kyara King, DO) Malnutrition (Acute) Hypothyroidism (Acute) Hyperlipidemia (Acute) H/O endarterectomy (Acute) R femoral on 09/02/19 Acute blood loss anemia (Acute) Decubitus ulcer, stage II (Acute) lateral malleolus - Physical Exam Vitals/I&O's: Vital Signs Temp Pulse Resp BP Pulse Ox 98.3 F 103 H 18 155/64 H 96 09/12/19 08:14 09/12/19 08:14 09/12/19 08:14 09/12/19 08:14 09/12/19 08:14 Oxygen Delivery Method Room Air Weight: 196 lb 10.437 oz Body Mass Index (BMI) 28.2 Intake and Output for Last 24 Hours 09/10/19 09/11/19 09/12/19 23:59 23:59 23:59 Intake Total 360 / 360 1060 / 1060 Output Total 400 / 400 1025 / 1025 Balance -40 / -40 35 / 35 General: Alert, Oriented x3, Cooperative, No apparent distress, Well developed, Well nourished HEENT: Atraumatic, PERRLA, EOMI, Normocephalic Oral: No Gingival or Mucosal Lesions/ Ulcerations, Dry Mucosa Neck: Supple, No JVD, Negative Carotid Bruits, No Nodes, No Nuchal Rigidity, Trachea Midline Lungs: Clear to auscultation, Normal air movement, No rhonchi, No wheeze, No rales Cardiovascular: Regular rate, Regular Rhythm, Normal S1, Normal S2, No murmurs, No Ectopic Activity, No rub noted, No Gallop Abdomen: Bowel Sounds Present, Soft, Non Tender, Non-Distended, - - No guarding with palpation Extremities: No clubbing, No cyanosis, No edema, Capillary Refill Less than 3 Seconds, No Calf Tenderness Skin: No rashes, No breakdown, Ulcer/ Wound - R BKA incision and the Left lateral malleolus decub Musculoskeletal: No Tenderness to Palpation of Joints or Extremities Neurological: Cranial nerves II-XII grossly intact, Neuro grossly intact Psych/Mental Status: Normal Affect, Appropriate Laboratory Results 09/11/19 16:41: POC Glucose 92 09/11/19 18:20: Urine Color Yellow, Urine Clarity Clear, Urine pH 7.0, Ur Specific [place] 1.005, Urine Protein 15 H, Urine Glucose (UA) Normal, Urine Ketones Negative, Urine Occult Blood Negative, Urine Nitrite Negative, Urine Bilirubin Negative, Urine Urobilinogen Normal, Ur Leukocyte Esterase Negative, Urine RBC 0 SEEN, Urine WBC 0-5 SEEN, Ur Squamous Epith Cells 0 SEEN, Urine Bacteria 0 SEEN, Urine Mucus 0 SEEN 09/11/19 22:03: POC Glucose 217 H 09/12/19 05:00: WBC 9.8, RBC 3.04 L, Hgb 8.8 L, Hct 28.0 L, MCV 92.1, MCH 28.9, MCHC 31.4 L, RDW Std Deviation 52.1 H, RDW Coeff of Sheri 15.9 H, Plt Count 456 H, MPV 8.8, Immature Gran % (Auto) 2.400 H, Neut % (Auto) 59.6, Lymph % (Auto) 21.9, [place] % (Auto) 14.6 H, Eos % (Auto) 1.3, Baso % (Auto) 0.2, Absolute Neuts (auto) 5.8, Absolute Lymphs (auto) 2.14, Nucleated RBC % 0.3 09/12/19 05:00: Sodium 137, Potassium 4.0, Chloride 100, Carbon Dioxide 28.0, Anion Gap 9, BUN 31 H, Creatinine 0.90, Estim Creat Clear Calc 69.85, Est GFR (MDRD) Af Amer 106, Est GFR (MDRD) Non-Af 87, BUN/Creatinine Ratio 34.6 H, Glucose 174 H, Calcium 8.6, Magnesium 1.3 L, Total Bilirubin 0.40, AST 79 H, ALT 55, Alkaline Phosphatase 89, Total Protein 7.6, Albumin 2.3 L, Globulin 5.3 H, Albumin/Globulin Ratio 0.4 L 09/12/19 06:39: POC Glucose 144 H Current Medications Acetaminophen (Tylenol) 1,000 mg PO Q8 [facility] Last Admin: 09/12/19 06:25 Dose: 1,000 mg Documented by: Aspirin (Ecotrin) 81 mg PO DAILY@0800 [facility] Last Admin: 09/12/19 07:49 Dose: 81 mg Documented by: Atorvastatin Calcium (Lipitor) 40 mg PO QHS [facility] Last Admin: 09/11/19 22:06 Dose: 40 mg Documented by: Bisacodyl (Dulcolax) 10 mg RECTAL .PRN X 1 PRN PRN Reason: Constipation Dextrose (D50w Syringe) 0 gm IV X1 PRN; Protocol PRN Reason: Hypoglycemia Gabapentin (Neurontin) 100 mg PO Q8 [facility] Last Admin: 09/12/19 06:25 Dose: 100 mg Documented by: Glimepiride (Amaryl) 4 mg PO BIDCM [facility] Last Admin: 09/12/19 07:50 Dose: 4 mg Documented by: Glucagon () 1 mg IM .X1 PRN PRN Reason: Hypoglycemia Heparin Sodium (Porcine) (Heparin Na) 5,000 unit SC Q12 [facility] Last Admin: 09/12/19 07:50 Dose: 5,000 unit Documented by: Insulin Glargine (Lantus (Bk)) 10 units SC QHS [facility] Last Admin: 09/11/19 22:04 Dose: 10 u Documented by: Insulin Human Lispro (Humalog Kwikpen ([facility])) 6 unit SC TIDAC [facility] Last Admin: 09/12/19 07:50 Dose: 6 units Documented by: Levothyroxine Sodium (Synthroid) 25 mcg PO DAILY@0600 [facility] Last Admin: 09/12/19 06:25 Dose: 25 mcg Documented by: Lisinopril (Zestril) 10 mg PO DAILY [facility] Last Admin: 09/12/19 07:47 Dose: 10 mg Documented by: Magnesium Hydroxide (Milk Of Magnesia) 30 ml PO .PRN X 1 PRN PRN Reason: Constipation [facility] 400[facility] Magnesium Oxide (Mag-Ox 400) 400 mg PO X1 ONE Stop: 09/12/19 08:26 Metformin HCl (Glucophage) [facility] Last Admin: 09/12/19 07:49 Dose: 1,000 mg Documented by: Oxycodone HCl (Oxyir) 5 mg PO Q6H PRN PRN PRN Reason: Pain Score 1-10/10 Last Admin: 09/12/19 07:47 Dose: 5 mg Documented by: Pioglitazone HCl (Actos) 30 mg PO DAILY [facility] Last Admin: 09/12/19 07:47 Dose: 30 mg Documented by: Senna/Docusate Sodium (Senokot-S, Teresita-Colace) 2 tablet PO BID [facility] Last Admin: 09/12/19 07:47 Dose: 2 tablet Documented by: Assessment/Plan All Active Problems (Last Reviewed 09/12/19 @ 08:[address] Kyara King, DO) Malnutrition (Acute) Hypothyroidism (Acute) Hyperlipidemia (Acute) H/O endarterectomy (Acute) Acute blood loss anemia (Acute) Decubitus ulcer, stage II (Acute) Impressions 1. physical debility with generalized weakness due to prolonged admission at [facility] fo 3 weeks with severe sepsis due to gangrene of the R foot followed by R foot amputation on 08/23/19, R femoral enarterectomy on 09/01 and R BKA on 09/05/19 2. S/P R BKA 3. Left lateral decubitus ulcer, unstageable due to eschar 4. Peripheral arterial disease with right femoral endarterectomy on 09/02/2019 5. ? diagnosis of CAD? has never had a cath or a stent and reportedly has a negative pharmacologic stress test at [facility] prior to right BKA 6. Uncontrolled diabetes mellitus type 2 with a recent hemoglobin A1c of 9.8%. On Amaryl and Metformin and Actos and Lantus and mealtime insulin? May consider discontinuing the Amaryl and Actos and using Metformin and insulin or consider a SGLT2 inhibitor since he has known PAD or asking Dr. De Paz to do a consult. 7. Protein calorie malnutrition 8. Hypertension/hyperlipidemia/hypothyroidism/vitamin D deficiency/remote tobacco dependence - continue home meds PLAN PT for gait stability OT for ADL's Analgesics as needed Bowel protocol Fall precautions Assess for Anxiety/Depression GI prophylaxis with famotidine 20 mg twice daily DVT prophylaxis with Lovenox 40 mg subcu daily Follow up with Dr. Reyes and the wound care center following DC from IP Rehab Consult wound/ostomy nurse Thong 1 packet twice daily Multivitamin daily, zinc sulfate 220 mg daily, vitamin C 500 mg twice daily Zostrix twice daily to the left knee for pain can control Check a creatinine/microalbumin ratio DC amaryl and Actos, continue Metformin and adjust insulin. Inpatient E&M: 54574 Init Hosp L3
[2019-09-12 09:08] LABS: Cholesterol 80 mg/dL (200); High Density Lipoprotein 22 mg/dL; Triglycerides 153 mg/dL; Very Low Density Lipoprotein 31 mg/dL (5-40)
--- NOTE | 2019-09-12 10:40 | REHABEVAL_ITS ---
Admission Information Primary Diagnosis:: Generalized weakness and physical debility secondary to recent severe sepsis secondary to gangrene of the right foot with subsequent right BKA Status Changes from Prescreening?: No changes Identified Actual Problem List:: Skin Intergrity, Alteration in Nutrition, Mobility Impaired, Self Care Deficit, Diabetes, Hyperglycemia, BP, Hypertension, Fluid Change-Dehydration Potential Problem List:: DVT, Bleeding, Infection, UTI, Aspiration, Falls, Skin Integrity, Depression Plan of Care Patient requires physician specializing in physical medicine and rehab oversight to provide close medical supervision of rehab issues including: Pain Management, Sleep Problems, Bowel and Bladder, Medical and co-morbidity Management, DVT prophylaxis, Rehabilitation Leadership, Coordination of treatment team Patient needs Physical Therapy: For a minimum of 1 hour, At least 5 out of 7 days Patient needs Physical Therapy to improve:: Mobility, Mobility, Mobility, Strengthening, Transfers, Stretching, ROM, Endurance, Stairs, Gait, Balance Patient needs Occupational Therapy: For a minimum of 1 hour, At least 5 out of 7 days Patient needs Occupational Therapy to improve ADL's incl.: Eating, Grooming, Bathing, Dressing, Toileting, Toilet transfers, Community Reintegration, Higher functioning activities, Household tasks, Adaptive Equipment, Splinting, Other activities as determined Patient requires 24/ Rehabilitation Nursing for: Pain Issues, Identifying and preventing risk factors, Monitoring and reporting current medical conditions, Assisting with ambulation, transfer, and all ADL's, Teaching patients about disease process and medications, Family teaching, Providing safe environment, Bowel and Bladder Issues, Skin integrity, Medication Management Patient needs Highway Engineering Teacher/ Case Management for: Discharge Planning, Arranging Home Equipment or Services, Family Interventions Patient needs Dietary and Nutrition Services for: Adequate Nutrition, Nutritional Supplements, Nutritional Education Goals Patient will remain: free from falls, or injury at time of discharge. Patient will perform bed mobility at: MOD I level of assist. Patient will complete transfers from bed to chair at: MOD I level of assist. Patient will ambulate: 100 feet, with MOD I assist, with LRD Patient will complete upper body dressing at: MOD I level of assist. Patient will complete lower body dressing at: MOD I level of assist. Patient will complete toileting at: MOD I level of assist. Patient will perform bathing at: MOD I level of assist. Patient will complete grooming at: MOD I level of assist. Patient will complete home management skills at: MOD I level of assist. Patient will achieve: 12 stairs, at MOD I assist Patient will have pain level of: of 3 or less Patient's skin will: remain intact, free from infection. Patient will receive: adequate nutrition. Discharge Planning Pt Prognosis for Sig. Practical Improv. w/in Reasonable Time: Good Estimated Length of stay (days): 21 Anticipated D/C Destination: Home with Home Health Was Preadmission Assessment Accurate?: Yes
[2019-09-12] MEDS: Magnesium Oxide 400 MG Tablet PO ×2 (10:41→16:56)
[2019-09-12 11:26] LABS: Bedside Glucose 128 mg/dL (70-110)
[2019-09-12 16:12] LABS: Microalbumin:Creatinine Ratio 66.5 mg/g CRE (<30 mg/g CRE)
--- NOTE | 2019-09-12 16:19 | CASEMGMT ---
Social Work Reviewed and agreed with social work documentation on this date. Carly Kramer, FLORAL ARRANGER CATERER'S AIDE
[2019-09-12 16:35] LABS: Bedside Glucose 116 mg/dL (70-110)
[2019-09-12] MEDS: Ascorbic Acid 500 MG Tablet PO (16:55)
[2019-09-12 19:16] VITALS: BP 139/71; PULSE 96; RESP 16; TEMP 36.8; O2SAT 96
--- NOTE | 2019-09-12 20:54 | NURSING ---
BLOOD SUGAR IS 76. PT STATES HE ATE MOST OF HIS SUPPER. FEELS FINE. PT GIVEN 1 CARTON WHITE WHOLE MILK AND 1 CARTON CHOCOLATE MILK TO DRINK.
[2019-09-12 20:56] LABS: Bedside Glucose 76 mg/dL (70-110)
[2019-09-12] MEDS: Capsaicin 0.025% 1 APPLIC Tube TOPICAL (21:22)
[2019-09-12] MEDS: Famotidine 20 MG Tablet PO (21:23)
[2019-09-12] MEDS: Atorvastatin Calcium 40 MG Tablet PO (21:23)
[2019-09-13 03:26] LABS: Bedside Glucose 159 mg/dL (70-110)
[2019-09-13 05:56] LABS: Bedside Glucose 127 mg/dL (70-110)
[2019-09-13] MEDS: Acetaminophen 500 MG Tablet 1000 MG PO ×3 (06:11→21:55)
[2019-09-13] MEDS: oxyCODONE 5 MG Tablet PO ×3 (06:11→20:04)
[2019-09-13] MEDS: Levothyroxine 25 MCG TABLET PO (06:12)
[2019-09-13] MEDS: Gabapentin 100 MG Capsule PO (06:12)
[2019-09-13] MEDS: Enoxaparin 40 MG/0.4 ML Syringe SC (06:12)
[2019-09-13 07:00] VITALS: BP 129/60; PULSE 87; RESP 16; TEMP 36.7; O2SAT 97
[2019-09-13 07:05] VITALS: O2SAT 99
[2019-09-13] MEDS: metFORMIN HCl 1,000 MG Tablet 1000 MG PO ×2 (08:09→17:25)
[2019-09-13] MEDS: Aspirin E.C. 81 MG Tablet PO (08:09)
[2019-09-13] MEDS: Magnesium Oxide 400 MG Tablet PO ×2 (08:09→17:25)
[2019-09-13] MEDS: Ascorbic Acid 500 MG Tablet PO ×2 (08:10→17:25)
[2019-09-13] MEDS: Multivitamins,Therapeutic Tablet 1 TABLET PO (08:10)
[2019-09-13] MEDS: Famotidine 20 MG Tablet PO ×2 (08:10→21:55)
[2019-09-13] MEDS: Lisinopril 10 MG Tablet PO (08:10)
[2019-09-13] MEDS: Insulin Lispro 100 UNIT/ML INSULN.PEN 6 UNIT SC ×3 (08:13→17:32)
[2019-09-13] MEDS: Capsaicin 0.025% 1 APPLIC Tube TOPICAL ×2 (08:17→21:54)
--- NOTE | 2019-09-13 11:16 | PCM.PN.BLA ---
Progress Note Afebile - 99.6 F at admission but afebrile since then VSS-blood pressure is controlled. Maintaining appropriate oxygen saturation on RA Oral intake was 2780 on 09/12/2019. Last bowel movement 09/13/2019 Discussed with nursing - no problems that need addressed Reviewed the PT/OT/ST notes Medication list reviewed. Amaryl and Actos were discontinued on 09/12/2019. He remains on metformin, Lantus and scheduled mealtime insulin. Blood sugar record was reviewed. Blood sugars are under good control. He had one blood sugar of 76 last night at bedtime. The 3 AM was 159 and the fasting today was 127. Microalbumin/creatinine ratio is high at 66.5. Hemoccult stool was negative. No fever. Denies muscle aches and pains. He is having phantom pain in the right lower extremity in the foot. No cough, no shortness of breath, no sore throat, no nasal congestion or rhinorrhea. Alert, appropriate, oriented x3 Lungs-excellent air exchange and clear to auscultation throughout Heart-regular rate and rhythm, no gallop there is redness over the posterior left heel...no opening but deep pressure wound and it is painful. He was seen by the ostomy/wound nurse today. The incision is intake with no DC and no erythema per the night nurse. I did not examine today because the dressing had just been changed. Will examine with the wound nurse on Monday Impressions 1. physical debility with generalized weakness due to prolonged admission at [facility] fo 3 weeks with severe sepsis due to gangrene of the R foot followed by R foot amputation on 08/23/19, R femoral endarterectomy on 09/01 and R BKA on 09/05/19 2. S/P R BKA 3. Left lateral malleolus decubitus ulcer, unstageable due to eschar and Left heel deep pressure injury 4. Peripheral arterial disease with right femoral endarterectomy on 09/02/2019 5. ? diagnosis of CAD? has never had a cath or a stent and reportedly has a negative pharmacologic stress test at [facility] prior to right BKA 6. Uncontrolled diabetes mellitus type 2 with a recent hemoglobin A1c of 9.8%. Not compliant with diet and only checks FBS's. Amaryl and Actos have been discontinued and he is currently on Lantus, mealtime insulin and Metformin. BS's are controlled with this regimen and a calorie diet. He will follow up with Dr. De Paz as an OP who plans on using 50/50 insulin 3 times a day with meals and Metformin to simplify his regimen. He will likely also be considered for an SGLT2 inhibitor since he has known arterial disease. 7. Protein calorie malnutrition 8. Hypertension/hyperlipidemia/hypothyroidism/vitamin D deficiency/remote tobacco dependence - continue home meds 9. Low HDL - consider a trial of niacin. 10. Phantom pain in the R foot - increase the Gabapentin 11. Hypomagnesemia patient started on a supplement 12. Diabetic nephropathy with an increased microalbumin/creatinine ratio CBC, BMP, magnesium on Monday Continue current insulin regimen Patient will follow-up with Dr. De Paz as an outpatient and be started on 50/50 insulin with meals and will continue the Metformin Start vitamin D supplement Geoffrey is at high risk for complications, an amputation of the Left leg going forward. The expected survival at 5 yrs for a diabetic with a major amputation is 31%. We are going to aggressively teach this patient about managing his diet and keeping the HGBA1C controlled. Inpatient E&M: 49516 Subs Hosp L2
[2019-09-13 12:06] LABS: Bedside Glucose 202 mg/dL (70-110)
[2019-09-13] MEDS: Insulin Lispro 100 UNIT/ML INSULN.PEN SC ×2 (12:13→17:33)
[2019-09-13] MEDS: Gabapentin 100 MG Capsule 200 MG PO (14:41)
[2019-09-13 17:01] LABS: Bedside Glucose 173 mg/dL (70-110)
[2019-09-13 19:19] VITALS: BP 121/55; PULSE 105; RESP 17; TEMP 36.7; O2SAT 94
[2019-09-13 19:53] VITALS: PULSE 101; RESP 12; O2SAT 97
[2019-09-13 20:01] LABS: Bedside Glucose 136 mg/dL (70-110)
[2019-09-13 21:35] LABS: Bedside Glucose 125 mg/dL (70-110)
[2019-09-13] MEDS: Gabapentin 400 MG Capsule PO (21:56)
[2019-09-13] MEDS: Atorvastatin Calcium 40 MG Tablet PO (21:56)
[2019-09-14] MEDS: oxyCODONE 5 MG Tablet PO ×3 (03:49→16:39)
[2019-09-14 06:21] LABS: Bedside Glucose 113 mg/dL (70-110)
[2019-09-14] MEDS: Acetaminophen 500 MG Tablet 1000 MG PO ×3 (06:26→21:39)
[2019-09-14] MEDS: Enoxaparin 40 MG/0.4 ML Syringe SC (06:27)
[2019-09-14] MEDS: Levothyroxine 25 MCG TABLET PO (06:27)
[2019-09-14] MEDS: Gabapentin 100 MG Capsule 200 MG PO ×2 (06:27→14:25)
--- NOTE | 2019-09-14 06:50 | NURSING ---
PT STRAIGHT CATHED FOR 550 ML CLEAR YELLOW URINE WITHOUT ODOR. PT TOLERATES PROCEDURE WELL.
[2019-09-14] MEDS: Lisinopril 10 MG Tablet PO (07:35)
[2019-09-14] MEDS: Ascorbic Acid 500 MG Tablet PO ×2 (07:35→16:39)
[2019-09-14] MEDS: Famotidine 20 MG Tablet PO ×2 (07:36→21:39)
[2019-09-14] MEDS: metFORMIN HCl 1,000 MG Tablet 1000 MG PO ×2 (07:36→16:39)
[2019-09-14] MEDS: Aspirin E.C. 81 MG Tablet PO (07:36)
[2019-09-14] MEDS: Insulin Lispro 100 UNIT/ML INSULN.PEN 6 UNIT SC ×3 (07:36→16:40)
[2019-09-14] MEDS: Magnesium Oxide 400 MG Tablet PO ×2 (07:36→16:39)
[2019-09-14] MEDS: Multivitamins,Therapeutic Tablet 1 TABLET PO (07:40)
[2019-09-14] MEDS: Menthol/Lanolin/Calamine/Znox 113 GM Tube 1 APPLIC TOPICAL ×2 (07:43→21:39)
[2019-09-14] MEDS: Capsaicin 0.025% 1 APPLIC Tube TOPICAL ×2 (07:44→21:43)
[2019-09-14 08:29] VITALS: BP 127/71; PULSE 86; RESP 18; TEMP 36.8; O2SAT 97
[2019-09-14] MEDS: Insulin Lispro 100 UNIT/ML INSULN.PEN SC ×2 (11:49→16:40)
[2019-09-14 12:01] LABS: Bedside Glucose 156 mg/dL (70-110)
[2019-09-14 16:56] LABS: Bedside Glucose 167 mg/dL (70-110)
[2019-09-14 20:56] VITALS: BP 126/71; PULSE 98; RESP 16; TEMP 37.1; O2SAT 99
[2019-09-14 21:11] LABS: Bedside Glucose 148 mg/dL (70-110)
[2019-09-14] MEDS: Atorvastatin Calcium 40 MG Tablet PO (21:39)
[2019-09-14] MEDS: Gabapentin 400 MG Capsule PO (21:39)
[2019-09-15] MEDS: oxyCODONE 5 MG Tablet PO ×3 (05:12→22:08)
[2019-09-15] MEDS: Gabapentin 100 MG Capsule 200 MG PO ×2 (05:14→13:40)
[2019-09-15] MEDS: Enoxaparin 40 MG/0.4 ML Syringe SC (05:14)
[2019-09-15] MEDS: Levothyroxine 25 MCG TABLET PO (05:14)
[2019-09-15] MEDS: Acetaminophen 500 MG Tablet 1000 MG PO ×3 (05:14→22:07)
[2019-09-15 06:56] LABS: Bedside Glucose 178 mg/dL (70-110)
[2019-09-15] MEDS: Ascorbic Acid 500 MG Tablet PO ×2 (07:24→16:49)
[2019-09-15] MEDS: Lisinopril 10 MG Tablet PO (07:25)
[2019-09-15] MEDS: Famotidine 20 MG Tablet PO ×2 (07:26→22:07)
[2019-09-15] MEDS: Senna/Docusate Sodium 1 Tablet 2 TABLET PO (07:26)
[2019-09-15] MEDS: Aspirin E.C. 81 MG Tablet PO (07:26)
[2019-09-15] MEDS: Magnesium Oxide 400 MG Tablet PO ×2 (07:26→16:49)
[2019-09-15] MEDS: metFORMIN HCl 1,000 MG Tablet 1000 MG PO ×2 (07:27→16:49)
[2019-09-15] MEDS: Insulin Lispro 100 UNIT/ML INSULN.PEN 6 UNIT SC ×3 (07:27→16:49)
[2019-09-15] MEDS: Multivitamins,Therapeutic Tablet 1 TABLET PO (07:27)
[2019-09-15] MEDS: Insulin Lispro 100 UNIT/ML INSULN.PEN SC ×3 (07:28→16:50)
[2019-09-15] MEDS: Menthol/Lanolin/Calamine/Znox 113 GM Tube 1 APPLIC TOPICAL ×2 (07:34→22:06)
[2019-09-15] MEDS: Capsaicin 0.025% 1 APPLIC Tube TOPICAL ×2 (07:35→22:11)
[2019-09-15 08:22] VITALS: BP 131/66; PULSE 86; RESP 18; TEMP 36.4; O2SAT 97
[2019-09-15 12:06] LABS: Bedside Glucose 155 mg/dL (70-110)
[2019-09-15 17:16] LABS: Bedside Glucose 160 mg/dL (70-110)
[2019-09-15 21:35] LABS: Bedside Glucose 170 mg/dL (70-110)
[2019-09-15 22:00] VITALS: BP 139/89; PULSE 84; RESP 16; TEMP 36.7; O2SAT 96
[2019-09-15] MEDS: Atorvastatin Calcium 40 MG Tablet PO (22:07)
[2019-09-15] MEDS: Gabapentin 400 MG Capsule PO (22:07)
--- NOTE | 2019-09-16 01:11 | NURSING ---
pt calls out nutritional yeast supervisor light at this time. pt tells BIN PILER that he is having a lot of pain. BIN PILER gets pt a snack and this nurse goes to further assess pt pain. pt noted to be rolling round in bed and panting from pain. pain med not due until 0208. pt refuses repositioning and for this nurse to call hospitalist for further pain medication. pt ok to wait for pain med that is due. this nurse will continue to monitor and medicate when due. will try other interventions for pain relief.
[2019-09-16] MEDS: oxyCODONE 5 MG Tablet PO ×2 (03:04→07:35)
[2019-09-16] MEDS: Enoxaparin 40 MG/0.4 ML Syringe SC (05:35)
[2019-09-16] MEDS: Gabapentin 100 MG Capsule 200 MG PO ×2 (05:35→14:11)
[2019-09-16] MEDS: Acetaminophen 500 MG Tablet 1000 MG PO ×3 (05:36→21:33)
[2019-09-16] MEDS: Levothyroxine 25 MCG TABLET PO (05:36)
[2019-09-16 06:20] LABS: Hematocrit 31.2 % (40-54); Hemoglobin 9.6 g/dL (13.0-16.5); Mean Corp Hgb Conc 30.8 g/dL (32-36); Mean Corpuscular Hgb 28.2 pg (27.0-32.0); Mean Corpuscular Volume 91.5 fL (80-94); Mean Platelet Vol. 9.4 fl (6.2-12.0); Platelet Count 479 K/mm3 (150-450); RBC Distribution Width CV 15.8 % (11.6-14.6); RBC Distribution Width SD 51.5 fl (35.1-43.9); Red Blood Count 3.41 M/mm3 (4.6-6.2); White Blood Count 10.7 K/mm3 (4.4-11.0)
[2019-09-16 06:41] LABS: Anion Gap 8 (5-15); BUN 36 mg/dL (7-18); BUN/Creat Ratio 41.4 RATIO (10-20); Chloride 101 mmol/L (98-107); Creatinine, Serum 0.87 mg/dL (0.70-1.30); EST Glomerular Filtration Rate 90 mL/min (>60); Est Glom Filt Rate - Afr Amer 109 mL/min (>60); Estimated Creatinine Clearance 72.25 ml/min; Glucose 192 mg/dL (74-106); Magnesium 1.4 mg/dL (1.6-2.6); Potassium 4.4 mmol/L (3.5-5.1); Sodium Level 135 mmol/L (136-145)
[2019-09-16 06:50] LABS: Bedside Glucose 175 mg/dL (70-110)
[2019-09-16 07:27] VITALS: BP 143/78; PULSE 95; RESP 16; TEMP 36.6; O2SAT 99
[2019-09-16] MEDS: Insulin Lispro 100 UNIT/ML INSULN.PEN 6 UNIT SC ×3 (07:28→17:11)
[2019-09-16] MEDS: metFORMIN HCl 1,000 MG Tablet 1000 MG PO ×2 (07:29→17:12)
[2019-09-16] MEDS: Lisinopril 10 MG Tablet PO (07:29)
[2019-09-16] MEDS: Multivitamins,Therapeutic Tablet 1 TABLET PO (07:29)
[2019-09-16] MEDS: Magnesium Oxide 400 MG Tablet PO ×2 (07:29→17:12)
[2019-09-16] MEDS: Senna/Docusate Sodium 1 Tablet 2 TABLET PO ×2 (07:29→21:33)
[2019-09-16] MEDS: Famotidine 20 MG Tablet PO ×2 (07:29→21:34)
[2019-09-16] MEDS: Insulin Lispro 100 UNIT/ML INSULN.PEN SC ×3 (07:29→17:11)
[2019-09-16] MEDS: Ascorbic Acid 500 MG Tablet PO ×2 (07:29→17:12)
[2019-09-16] MEDS: Aspirin E.C. 81 MG Tablet PO (07:29)
[2019-09-16] MEDS: Menthol/Lanolin/Calamine/Znox 113 GM Tube 1 APPLIC TOPICAL ×2 (07:35→21:35)
[2019-09-16] MEDS: Capsaicin 0.025% 1 APPLIC Tube TOPICAL ×2 (07:36→21:36)
--- NOTE | 2019-09-16 08:00 | PCM.PN.BLA ---
Progress Note Pt was seen on rounds today with the TEAM. His daughter Becca was on the speaker phone. Afebile VSS Maintaining appropriate oxygen saturation on RA Oral intake is good Discussed with nursing - no problems that need addressed Reviewed the PT/OT/ST notes Medication list reviewed. All lab was personally reviewed. Sodium is 135 today. The BUN is 36 with a creatinine of 0.87. BUN/creatinine ratio is 41.4 today. Magnesium is still low at 1.4. Hemoglobin has increased from 8.8-9.6 but this may be due to hemoconcentration related to intravascular volume depletion. Platelets remain elevated and they are 479,000 today. White blood cell count is 10.7. Blood sugar record was reviewed. Blood sugars are very well controlled and there are no blood sugars greater than 180. No hypoglycemia. He tells me that the pain in the right leg is better than at admission. He is still having a hard time sleeping at night. He thinks the Gabapentin is helping with pain. He is no longer c/o pain in the right foot. His pain is primarily in the fleshy part of the stump. He has no pain in the R groin. He is continually driving the left heel into the bed. He bends the L knee and drives the heel into the bed. I do not feel like the foam boot is doing that much for pressure relief. Alert, appropriate. Lungs - CTA H- RRR The groin incision is healing. He has no pain with palpation of the area. There is no lenin-wound erythema. There is no purulent discharge. The stump incision is healing. There is not lenin-wound erythema and there is no purulent DC. The stump is very sensitive to touch. The left heel is also very sensitive to touch. The decub on the left lateral malleolus is healing and is now just a small (less than 1 cm) scab. There is no lenin-wound erythema and no DC. The heel decub is not stageable. There is a deep purple discoloration but, the skin is intake. He does not feel pain when he drives the heel into the bed but, the foot is very sensitive to the touch. Impressions 1. S/P right BKA 2. PVD - S/P R femoral artery endarterectomy 3. Left lateral malleolus stage II decubitus ulcer - healing 3. Unstageable decub of the left heel - need better pressure relief. 4. DM II - excellent control Stressed the importance of blood sugar control to prevent amputation of the left leg going forward. 5. HTN - well controlled 6. diabetic neuropathy 7. Hypomagnesemia 8. IV volume depletion with mild hyponatremia Increase the Gabapentin to 600 mg at HS increase the mag oxide to 400MG BID and give 4 GM IV today NS 2 liters today. Recheck a BMP and a MAG on Monday DC the EDI hose...they are too difficult to get on due to the hypersensitivity of the left foot and him kicking Continue the Lovenox for DVT prophylaxis consult Dr Jay for nail care and to recommend a satisfactory boot for pressure relief of the left heel - recommended that Geoffrey follow up with Dr. Jay post discharge. STROKE Vital Signs/Narrative: Vital Signs Temp Pulse Resp BP Pulse Ox 09/16/19 07:27 97.8 F 95 16 143/78 H 99 Inpatient E&M: 39336 Subs Hosp L2
--- NOTE | 2019-09-16 09:54 | CASEMGMT ---
Social Work IDT met with pt and pt dtr via conference call for team meeting. Pt is min assist for bed transfers but is fatigued easily. Pt is using sliding board for all transfers at min assist. Pt is standing in parallel bars 20-30 seconds at min assist. Pt has not started hopping d/t left leg pain/weakness. Pt is SBA for w/c mobility. Pt is min assist for UE ADLS and max to total assist for LE ADLS. Pt is mod assist for toileting. Explained insurance to pt NRD 09/22. Physician explained necessity for maintaining low carb diet and described risk factors in not maintaining diet-pt and family understanding. Dtr expressed concerns over payment for insulin, pt was taking oral medication to control blood sugars prior to hospitalization d/t finances. SW/[facility] to give pt Medicaid application. Goal for pt is to return home but pt will need to be independent with slide board transfers so pt can return home alone safely. Marilyn Franco, social work analysis intern Carly Kramer, SUPERVISOR [employer] [place] [employer]
[2019-09-16 11:11] LABS: Bedside Glucose 171 mg/dL (70-110)
--- NOTE | 2019-09-16 11:13 | NURSING ---
According to the progress note, Dr King had assessed wounds already today. Had talked with Dr Jay about the left heel deep tissue pressure injury and that the foam boots are all we carry here at [facility]. Dr Jay will look into possibly getting another type of boot after he assesses heel later today. will continue to follow as needed.
--- NOTE | 2019-09-16 13:24 | PCM.CONS.GEN ---
Reason for Consult Date of Consultation: 09/16/19 Reason for Consultation: Left heel and toenails left foot History of Present Illness: The patient is a 79 year old gentleman with history of diabetes and PAD s/p right BKA due to gangrene and significant PAD was seen today for left heel pressure ulcer (unstagable) and long thickened toenails left foot. Patient relates he was at [facility] for several weeks, had vascular intervention but foot/leg was not salvagable so patient ultimately underwent BKA. Patient was transferred to [facility] for rehab. Patient has a pressure wound to the posterior heel, he keeps hitting it and keeps getting irritated. Podiatry was consulted by Dr. King for further evaluation on offloading boot he has use. Also patient needs toenails on left foot reduced. Patient has no other pedal complaints. Past Medical History Past Medical History (Chronic Problems): Chronic Problems (Last Reviewed 09/12/19 @ 08:[address] Kyara King DO) Diabetes mellitus type 2, uncontrolled (Chronic) Peripheral vascular disease (Chronic) History of right below knee amputation (Chronic) 09/05/2019 Coronary artery disease (Chronic) Hypertension (Chronic) Overweight (BMI 25.0-29.9) (Chronic) Tobacco dependence in remission (Chronic) quit in [place] (Chronic) Vitamin D deficiency (Chronic) Medical History: Medical History (Last Reviewed 09/12/19 @ 08:[address] Kyara King DO) Diabetes E11.9 Dyslipidemia E78.5 Gangrene of right foot I96 Hypothyroid E03.9 Hypertension I10 Allergies No Known Allergies Allergy (Verified 08/21/19 14:43) Home Medications: Ambulatory Orders Medication Instructions Recorded Acetaminophen [Tylenol] 1,000 mg PO Q8 09/11/19 Aspir 81 1 tab PO DAILY 09/11/19 Atorvastatin Calcium [Lipitor] 40 mg PO DAILY 09/11/19 Gabapentin [Neurontin] 1 cap PO Q8 09/11/19 Glimepiride 4 mg PO BID 09/11/19 Levothyroxine [Synthroid] 25 mcg PO DAILY 09/11/19 Lisinopril [Prinivil] 10 mg PO DAILY 09/11/19 Metformin HCl 1,000 mg PO BID 09/11/19 Oxycodone [Oxyir] 5 mg PO Q6H PRN PRN 09/11/19 Pioglitazone [Actos] 30 mg PO DAILY 09/11/19 Surgical History: Surgical History (Last Reviewed 09/12/19 @ 08:[address] Kyara King DO) Amputation below knee S88.119A Psychiatric History: No pertinent psych hx Lives: Alone Smoking Status: Former smoker - quit in the Tobacco Use: Non-smoker Alcohol: Heavy - he used to drink more heavily. No he drinks 1-2 beers 2-3 times a week at the [employer] Drugs: None - *Family History Maternal History Items: No pertinent history Paternal History Items: No pertinent history, - - he is 79 years old and FH (which he knows little about is not really relavent at this stage of his life Review of Systems Constitutional: Denies: Chills, Fever Gastrointestinal: Denies: Nausea, Vomiting Musculoskeletal: Denies: Foot Pain Skin: Reports: Wounds Patient Problems: Active and Suspected Problems (Last Reviewed 09/12/19 @ 08:[address] Kyara King DO) Malnutrition (Acute) Hypothyroidism (Acute) Hyperlipidemia (Acute) H/O endarterectomy (Acute) R femoral on 09/02/19 Acute blood loss anemia (Acute) Decubitus ulcer, stage II (Acute) lateral malleolus - Physical Exam Vitals/I&O's: Vital Signs Temp Pulse Resp BP Pulse Ox 97.8 F 95 16 143/78 H 99 09/16/19 07:27 09/16/19 07:27 09/16/19 07:27 09/16/19 07:27 09/16/19 07:27 Oxygen Delivery Method Room Air Weight: 85.9 kg Body Mass Index (BMI) 26.9 Intake and Output for Last 24 Hours 09/14/19 09/15/19 09/16/19 23:59 23:59 23:59 Intake Total 1490 / 1490 1770 / 1770 1100 / 1100 Output Total 2550 / 2550 1250 / 1250 Balance -1060 / -1060 520 / 520 1100 / 1100 General: Alert, Oriented x3, Cooperative, No apparent distress Extremities: Capillary Refill Less than 3 Seconds, No Calf Tenderness, - - Right s/p BKA. Left foot: Skin dry, warm and intact, but there is pressure wound to the posterior heel with no open lesion or drainage - unstagable at this time. Otherwise there are no other open lesions to the left foot, no erythema, no maloder, no fluctuance, no ecchymosis, no necrosis, no crepitus present. CFT < 2 seconds to all toes on the left foot w/ normal temperature to the left foot. Sensation is intact to light touch - left foot, motor function intact to the foot/ankle, left. No POP or pain on ROM to the left foot/ankle. Toenails 1-5 left foot are elongated, dystrophic, thickened, and incurvated. Psych/Mental Status: Normal Affect, Appropriate, Alert and oriented to time, place, person, mood and affect Laboratory Results 09/15/19 16:49: POC Glucose 160 H 09/15/19 21:24: POC Glucose 170 H 09/16/19 05:56: POC Glucose 175 H 09/16/19 06:00: WBC 10.7, RBC 3.41 L, Hgb 9.6 L, Hct 31.2 L, MCV 91.5, MCH 28.2, MCHC 30.8 L, RDW Std Deviation 51.5 H, RDW Coeff of Sheri 15.8 H, Plt Count 479 H, MPV 9.4 09/16/19 06:00: Sodium 135 L, Potassium 4.4, Chloride 101, Carbon Dioxide 26.0, Anion Gap 8, BUN 36 H, Creatinine 0.87, Estim Creat Clear Calc 72.25, Est GFR (MDRD) Af Amer 109, Est GFR (MDRD) Non-Af 90, BUN/Creatinine Ratio 41.4 H, Glucose 192 H, Calcium 9.0, Magnesium 1.4 L 09/16/19 11:04: POC Glucose 171 H Current Medications Acetaminophen (Tylenol) 1,000 mg PO Q8 [facility] Last Admin: 09/16/19 05:36 Dose: 1,000 mg Documented by: Ascorbic Acid (Vitamin C) 500 mg PO BIDCM [facility] Last Admin: 09/16/19 07:29 Dose: 500 mg Documented by: Aspirin (Ecotrin) 81 mg PO DAILY@0800 [facility] Last Admin: 09/16/19 07:29 Dose: 81 mg Documented by: Atorvastatin Calcium (Lipitor) 40 mg PO QHS [facility] Last Admin: 09/15/19 22:07 Dose: 40 mg Documented by: Bisacodyl (Dulcolax) 10 mg RECTAL .PRN X 1 PRN PRN Reason: Constipation Calamine/Phenol (Calmoseptine Ointment) 1 applic TOPICAL BID [facility]; Protocol Last Admin: 09/16/19 07:35 Dose: 1 applicatio Documented by: Capsaicin (Zostrix) 1 applic TOPICAL BID [facility]; Protocol Last Admin: 09/16/19 07:36 Dose: 1 applicatio Documented by: Dextrose (D50w Syringe) 0 gm IV X1 PRN; Protocol PRN Reason: Hypoglycemia Enoxaparin Sodium (Lovenox) 40 mg SC DAILY@0600 [facility] Last Admin: 09/16/19 05:35 Dose: 40 mg Documented by: Ergocalciferol (Vitamin D) 50,000 unit PO Fr@1000 [facility] Last Admin: 09/13/19 14:42 Dose: 50,000 unit Documented by: Famotidine (Pepcid) 20 mg PO BID [facility] Last Admin: 09/16/19 07:29 Dose: 20 mg Documented by: Gabapentin (Neurontin) 200 mg PO BID@0600,1400 [facility] Last Admin: 09/16/19 05:35 Dose: 200 mg Documented by: Gabapentin (Neurontin) 600 mg PO DAILY@2000 [facility] Glucagon () 1 mg IM .X1 PRN PRN Reason: Hypoglycemia Sodium Chloride () 1,000 mls @ 100 mls/hr IV .Q10H [facility] Stop: 09/17/19 06:34 Magnesium Sulfate () 4 gm in 100 mls @ 25 mls/hr IV X1 ONE Stop: 09/16/19 15:29 Insulin Glargine (Lantus (Bkc)) 10 units SC QHS [facility] Last Admin: 09/15/19 22:06 Dose: 10 units Documented by: Insulin Human Lispro (Humalog Kwikpen (Bkc)) 6 unit SC TIDAC [facility] Last Admin: 09/16/19 11:58 Dose: 6 u Documented by: Insulin Human Lispro (Humalog Kwikpen (Bkc)) 0 unit SC TIDAC [facility]; Protocol Last Admin: 09/16/19 11:58 Dose: 1 u Documented by: Levothyroxine Sodium (Synthroid) 25 mcg PO DAILY@0600 [facility] Last Admin: 09/16/19 05:36 Dose: 25 mcg Documented by: Lisinopril (Zestril) 10 mg PO DAILY [facility] Last Admin: 09/16/19 07:29 Dose: 10 mg Documented by: Magnesium Hydroxide (Milk Of Magnesia) 30 ml PO .PRN X 1 PRN PRN Reason: Constipation Magnesium Oxide (Mag-Ox 400) [facility] Last Admin: 09/16/19 07:29 Dose: 400 mg Documented by: Metformin HCl (Glucophage) 1,000 mg PO [facility] Last Admin: 09/16/19 07:29 Dose: 1,000 mg Documented by: Multivitamins (Multivitamin) 1 tablet PO [facility] Last Admin: 09/16/19 07:29 Dose: 1 tablet Documented by: Nutritional Formula (Thong - [place] Flavor) 1 packet PO [facility] Last Admin: 09/16/19 07:30 Dose: 1 packet Documented by: Oxycodone HCl (Oxyir) 5 - 10 mg PO Q4H PRN PRN PRN Reason: Pain Score 1-10/10 Senna/Docusate Sodium (Senokot-S, Teresita-Colace) 2 tablet PO BID [facility] Last Admin: 09/16/19 07:29 Dose: 2 tablet Documented by: Sodium Chloride () 10 - 40 ml IV UD PRN PRN Reason: SALINE FLUSH Zinc Sulfate (Zinc Sulfate) 220 mg PO DAILY [facility] Last Admin: 09/16/19 07:29 Dose: 220 mg Documented by: Assessment/Plan All Active Problems (Last Reviewed 09/12/19 @ 08:[address] Kyara King, DO) Malnutrition (Acute) Hypothyroidism (Acute) Hyperlipidemia (Acute) H/O endarterectomy (Acute) Acute blood loss anemia (Acute) Decubitus ulcer, stage II (Acute) Posterior heel pressure ulcer - unstagable Peripheral arterial disease lower extremity Diabetes Left foot exam performed. Left foot with no evidence of acute ischemia. Regarding left heel there is nothing open at this time. Reviewed with patient the importance of keeping this offloaded at all times. An offloading boot to float and protect the heel has been ordered and is suppose to be here in a couple of days. In the meantime, patient to using current foam heel protected as well as pillows to keep the heel offloaded at all times. Toenail 1-5 left foot were debrided using a nail nipper. This was done w/out incident. Reviewed diabetic foot care, patient to follow up [facility] for [facility] care upon discharge. On going foot care is indicated due to diabetes and peripheral vascular disease s/p right BKA. Will follow up with patient later this week for fitting and dispensing of offloading heel boot.
[2019-09-16] MEDS: 0.9% Normal Saline 1,000 ML 100 ML IV (14:03)
[2019-09-16] MEDS: Magnesium Sulfate 4gm/100mL 4 GM/100 ML IV.SOLN. IV (14:04)
[2019-09-16 14:07] LABS: Mucous, Urine 0 SEEN /hpf (<or=2+); Red Blood Cells-Urine 0 SEEN /hpf (0-5)
[2019-09-16 14:54] LABS: Color, Urine Yellow (Yellow); Glucose, Dipstick 100 mg/dl (Normal); Ketone-Dipstick Negative (Negative); Leukocyte Esterase-Dipstick Negative /ul (Negative); Nitrite-Dipstick Negative (Negative); Occult Blood-Urine Negative /ul (Negative); Protein-Dipstick 15 mg/dl (Negative); Urine Bilirubin Dipstick Negative (Negative); Urine Clarity Sl. Cloudy (Clear); Urine Urobilinogen Normal (Normal)
[2019-09-16 15:14] LABS: Bacteria 1+ /hpf (None Seen); Squamous Epithelial Cells - UA 0-5 SEEN /hpf (0-5); White Blood Cells 0-5 SEEN /hpf (0-5)
[2019-09-16 17:01] LABS: Bedside Glucose 263 mg/dL (70-110)
[2019-09-16 19:08] VITALS: BP 121/60; PULSE 102; RESP 16; TEMP 36.6; O2SAT 96
[2019-09-16] MEDS: Gabapentin 600 MG Tablet PO (20:20)
[2019-09-16 21:01] LABS: Bedside Glucose 173 mg/dL (70-110)
[2019-09-16] MEDS: Atorvastatin Calcium 40 MG Tablet PO (21:34)
[2019-09-16 22:00] VITALS: PULSE 99; RESP 16; O2SAT 96
[2019-09-17] MEDS: 0.9% Normal Saline 1,000 ML 100 ML IV (03:38)
[2019-09-17] MEDS: Levothyroxine 25 MCG TABLET PO (06:05)
[2019-09-17] MEDS: Acetaminophen 500 MG Tablet 1000 MG PO ×3 (06:05→22:00)
[2019-09-17] MEDS: Gabapentin 100 MG Capsule 200 MG PO ×2 (06:06→14:08)
[2019-09-17] MEDS: Enoxaparin 40 MG/0.4 ML Syringe SC (06:09)
[2019-09-17 06:31] LABS: Bedside Glucose 207 mg/dL (70-110)
[2019-09-17 07:00] VITALS: BP 145/69; PULSE 97; RESP 18; TEMP 36.8; O2SAT 99
[2019-09-17] MEDS: Ascorbic Acid 500 MG Tablet PO ×2 (08:12→17:25)
[2019-09-17] MEDS: Multivitamins,Therapeutic Tablet 1 TABLET PO (08:12)
[2019-09-17] MEDS: Insulin Lispro 100 UNIT/ML INSULN.PEN 6 UNIT SC ×3 (08:12→17:25)
[2019-09-17] MEDS: Lisinopril 10 MG Tablet PO (08:12)
[2019-09-17] MEDS: Aspirin E.C. 81 MG Tablet PO (08:12)
[2019-09-17] MEDS: metFORMIN HCl 1,000 MG Tablet 1000 MG PO ×2 (08:12→17:25)
[2019-09-17] MEDS: Famotidine 20 MG Tablet PO ×2 (08:12→20:19)
[2019-09-17] MEDS: Insulin Lispro 100 UNIT/ML INSULN.PEN SC ×3 (08:12→17:25)
[2019-09-17] MEDS: Magnesium Oxide 400 MG Tablet PO ×2 (08:12→17:24)
[2019-09-17] MEDS: Capsaicin 0.025% 1 APPLIC Tube TOPICAL ×2 (08:13→20:12)
[2019-09-17] MEDS: Menthol/Lanolin/Calamine/Znox 113 GM Tube 1 APPLIC TOPICAL ×2 (08:13→20:20)
[2019-09-17 12:05] LABS: Bedside Glucose 193 mg/dL (70-110)
--- NOTE | 2019-09-17 13:33 | PCM.PN.BLA ---
Progress Note Afebrile Blood pressure is for the most part controlled. There is an occasional systolic greater than 140 but generally blood pressure is well controlled. Resting heart rate is on the high side in the 90's. He is maintaining appropriate oxygen saturation on room air. Fluid balance for 09/16/2019 was -255. He has received 2 L of normal saline. Follow-up labs ordered for the morning. Blood sugar record was reviewed. The blood sugars have been increased over the past 24 hours from what they were. The 4 PM was 263 yesterday. He is afebrile. No signs of cellulitis on the physical exam. Will recheck a CBC and Diff tomorrow. Alert, oriented x3, no apparent distress Lungs-clear to auscultation Heart-regular rate and rhythm Abdomen-soft, nontender, nondistended, no guarding with palpation, normal bowel sounds, good bowel function No edema left lower extremity incisions and decubs stable today. Impressions 1. S/P right BKA 2. PVD - S/P R femoral artery endarterectomy 3. Left lateral malleolus stage II decubitus ulcer - healing. 3. Unstageable decub of the left heel - need better pressure relief. Dr. Jay has ordered a special boot for the left lower extremity to protect the heel. 4. DM II - excellent control Stressed the importance of blood sugar control to prevent amputation of the left leg going forward. 5. HTN - well controlled 6. diabetic neuropathy 7. Hypomagnesemia-received 4 g of IV magnesium on 09/16/2019 and the daily dosage was increased to 400 mg Mag-Ox twice daily 8. IV volume depletion with mild hyponatremia -status post 2 L of IV normal saline. Recheck lab in the a.m. If he still has Bs's > 180 in the AM will adjust the insulin. Warned him against consuming snacks from his family that are high in carbs Inpatient E&M: [id number] Subs Hosp L2
[2019-09-17 17:10] LABS: Bedside Glucose 209 mg/dL (70-110)
[2019-09-17 19:23] VITALS: BP 152/76; PULSE 102; RESP 18; TEMP 36.4; O2SAT 98
[2019-09-17 19:50] VITALS: PULSE 108; RESP 18; O2SAT 99
[2019-09-17] MEDS: 0.9% Saline Lock 10 ML Syringe IV (20:10)
[2019-09-17] MEDS: Atorvastatin Calcium 40 MG Tablet PO (20:19)
[2019-09-17] MEDS: Gabapentin 600 MG Tablet PO (20:19)
[2019-09-17 22:16] LABS: Bedside Glucose 266 mg/dL (70-110)
--- NOTE | 2019-09-18 01:20 | NURSING ---
Reviewed and agree with BILINGUAL SALES CONSULTANT documentation and charting.
[2019-09-18] MEDS: Enoxaparin 40 MG/0.4 ML Syringe SC (06:05)
[2019-09-18] MEDS: Gabapentin 100 MG Capsule 200 MG PO ×2 (06:06→15:19)
[2019-09-18] MEDS: Levothyroxine 25 MCG TABLET PO (06:07)
[2019-09-18] MEDS: Acetaminophen 500 MG Tablet 1000 MG PO ×3 (06:07→21:33)
[2019-09-18 06:14] LABS: Absolute Lymphocyte Count 2.78 X10^3/uL (0.83-4.51); Basophil# 0.03 X10^3/uL; Basophil% 0.3 % (0-1); Eosinophil# 0.25 X10^3/uL; Eosinophils% 2.2 % (0-5); Hematocrit 30.8 % (40-54); Hemoglobin 9.7 g/dL (13.0-16.5); Lymphocyte # 2.78 X10^3/ul (4.0); Lymphocyte % 24.4 % (19-41); Mean Corp Hgb Conc 31.5 g/dL (32-36); Mean Corpuscular Hgb 29.2 pg (27.0-32.0); Mean Corpuscular Volume 92.8 fL (80-94); Mean Platelet Vol. 8.9 fl (6.2-12.0); Monocyte# 1.06 X10^3/uL; Monocyte% 9.3 % (0-10); NRBC Flagged by Analyzer 0.3 % (0-5); Neutrophil # 7.01 X10^3/uL (2.7-7.7); Neutrophil % 61.3 % (47-70); Platelet Count 446 K/mm3 (150-450); RBC Distribution Width CV 16.6 % (11.6-14.6); RBC Distribution Width SD 53.5 fl (35.1-43.9); Red Blood Count 3.32 M/mm3 (4.6-6.2); White Blood Count 11.4 K/mm3 (4.4-11.0)
[2019-09-18 06:41] LABS: Magnesium 1.7 mg/dL (1.6-2.6); Phosphorus 2.6 mg/dL (2.5-4.9)
[2019-09-18 06:45] LABS: Bedside Glucose 182 mg/dL (70-110)
[2019-09-18] MEDS: oxyCODONE 5 MG Tablet PO ×3 (07:00→17:27)
[2019-09-18 08:14] VITALS: BP 160/81; PULSE 84; RESP 18; TEMP 36.6; O2SAT 98
[2019-09-18] MEDS: Insulin Lispro 100 UNIT/ML INSULN.PEN SC ×3 (08:21→21:36)
[2019-09-18] MEDS: Insulin Lispro 100 UNIT/ML INSULN.PEN 6 UNIT SC ×3 (08:21→17:21)
[2019-09-18] MEDS: Menthol/Lanolin/Calamine/Znox 113 GM Tube 1 APPLIC TOPICAL ×2 (08:23→20:25)
[2019-09-18] MEDS: Aspirin E.C. 81 MG Tablet PO (08:23)
[2019-09-18] MEDS: Magnesium Oxide 400 MG Tablet PO ×2 (08:23→17:24)
[2019-09-18] MEDS: Ascorbic Acid 500 MG Tablet PO ×2 (08:23→17:23)
[2019-09-18] MEDS: metFORMIN HCl 1,000 MG Tablet 1000 MG PO ×2 (08:23→17:23)
[2019-09-18] MEDS: Multivitamins,Therapeutic Tablet 1 TABLET PO (08:23)
[2019-09-18] MEDS: Famotidine 20 MG Tablet PO ×2 (08:23→20:26)
[2019-09-18] MEDS: Lisinopril 10 MG Tablet PO (08:24)
[2019-09-18] MEDS: Capsaicin 0.025% 1 APPLIC Tube TOPICAL ×2 (08:24→20:27)
[2019-09-18] MEDS: 0.9% Saline Lock 10 ML Syringe IV ×2 (08:25→20:17)
--- NOTE | 2019-09-18 09:56 | PN_ITS ---
Progress Note Afebrile Systolic blood pressure has been elevated for the past 2 days. The systolic pressure has ranged from 1 45-1 60 over the past 2 days. Diastolic is normal. Heart rate remains mildly elevated, especially with exertion. He is maintaining appropriate oxygen saturation on room air. Fluid balance on 09/17/2019 was +2250 and he received 2 L of normal saline. He is incontinent occasionally. Blood sugar record was reviewed. Blood sugars have gone up over the past 2 days. CBC was reviewed. The white blood cell count is 11.4 today, up from 9.8 on 09/12/2019. There are 61% neutrophils and 2.5% immature granulocytes. Hemoglobin is stable at 9.7 and platelets of count down to 446. Phosphorus is normal at 2.6 and the magnesium is 1.7 today. BMP today shows a sodium of 137, up from 135 on 09/16/2019. Potassium is within normal limits. The BUN is down to 30 from 36 and the creatinine is 0.84 and stable. Nursing reports that the right groin incision has some drainage and it is brownish in color. He has no pain with palpation of that area. The incision is mostly intact and I could not express any discharge today. At the superior pole of the incision there is induration present. there is no lenin-incisional erythema and the area is not warm to the touch. He denies pain and he slept well last night. Less sleepy now that he has been on the Gabapentin at a higher dose for a few days. Lungs are CTA and he is not coughing. Stump incision is intact and there is no erythema and no discharge No change in the left foot decubs Impression 1. increasing WBC with left shift and increasing BS's despite diet - previously very well controlled on the same regimen. Will get an US of the R groin area and also send another urine today and get a urine culture. 2. Diabetes mellitus type 2-blood sugars have been increased the past 2 days and I suspect this may be related to infection. Will increase the sliding scale insulin to high dosing. Continue scheduled mealtime insulin. 3. Hypomagnesemia-has been supplemented and magnesium is normal at 1.7 today. 4. Hypertension with mild increase in systolic blood pressure the past 48 hours. We will continue to monitor and if it increases anymore will increase antihypertensive regimen. 5. Tendonitis of the left elbow......exam is not consistent with gout. The pa in increases when he is moving the elbow......no increase in pain with internal or external rotation on the elbow. Point tenderness on the lateral epicondyle of the elbow. No significant fluid in olecranon bursa. STROKE Vital Signs/Narrative: Vital Signs Temp Pulse Resp BP Pulse Ox 09/18/19 08:14 97.9 F 84 18 160/81 H 98 Inpatient E&M: 26771 Subs Hosp L2
[2019-09-18 10:03] LABS: Anion Gap 6 (5-15); BUN 30 mg/dL (7-18); BUN/Creat Ratio 35.9 RATIO (10-20); Calcium,Total 8.9 mg/dL (8.5-10.1); Chloride 104 mmol/L (98-107); Creatinine, Serum 0.84 mg/dL (0.70-1.30); EST Glomerular Filtration Rate 95 mL/min (>60); Est Glom Filt Rate - Afr Amer 114 mL/min (>60); Estimated Creatinine Clearance 74.83 ml/min; Glucose 190 mg/dL (74-106); Potassium 4.3 mmol/L (3.5-5.1); Sodium Level 137 mmol/L (136-145)
--- NOTE | 2019-09-18 10:05 | US_ITS ---
STUDY: SUPERFICIAL ULTRASOUND - RIGHT GROIN. REASON FOR EXAM: Male, 79 years old. RT GROIN INCISION SITE SEEPING -- R/O ABSCESS TECHNIQUE: A superficial ultrasound was performed with real-time and static meehan-scale imaging. COMPARISON: None. FINDINGS: Imaging of the right incision was performed by ultrasound. There is a 1.2 cm x 1.1 cm x 0.7 cm fluid collection with low level echoes within it and the cephalic and of the incision. Along the distal end of the incision, is also evidence of an 8 mm x 7 mm x 6 mm fluid collection. US/Ext Non Vasc Limited/Soft Tiss IMPRESSION: 2 small fluid collections seen at the incision site as described most likely resulting in postoperative seromas. Electronically Signed: Daniel Rodriguez, at 12:11 EDT , Service support ,
[2019-09-18] MEDS: levoFLOXacin 500 MG Tablet PO (10:36)
[2019-09-18] MEDS: Doxycycline 100 MG CAPSULE PO ×2 (10:37→20:25)
[2019-09-18 10:47] LABS: Erythrocyte Sedimentation Rate 74 mm/hr (0-20)
[2019-09-18 11:45] LABS: Bedside Glucose 213 mg/dL (70-110)
[2019-09-18 13:55] LABS: Bacteria 0 SEEN /hpf (None Seen); Mucous, Urine 0 SEEN /hpf (<or=2+); Red Blood Cells-Urine 0 SEEN /hpf (0-5)
[2019-09-18 14:22] LABS: Color, Urine Yellow (Yellow); Glucose, Dipstick 1000 mg/dl (Normal); Ketone-Dipstick Negative (Negative); Leukocyte Esterase-Dipstick Negative /ul (Negative); Nitrite-Dipstick Negative (Negative); Occult Blood-Urine Negative /ul (Negative); Protein-Dipstick 30 mg/dl (Negative); Urine Bilirubin Dipstick Negative (Negative); Urine Clarity Clear (Clear); Urine Urobilinogen Normal (Normal)
--- NOTE | 2019-09-18 14:55 | PCM.HP.ID ---
Reason for Consult: cellulitis Consulted by: Dr. King History of Present Illness: The patient is a 79 year old M with PAD, uncontrolled DM, presented 08/20 with R foot turning black to ED here, transferred to [facility]. Taken to OR for his foot, ended up with R BKA and R groin endarterectomy. Seen by ID there, Dr. Landis. Transferred here 09/11 off of abx. Feeling well. No fever, no pain. Noted to have small L heel blister and some redness over R groin incision. Full ROS Performed and neg except as noted above. - Medical History Past Medical History (Chronic Problems): Chronic Problems (Last Reviewed 09/12/19 @ 08:[address] Kyara King, DO) Diabetes mellitus type 2, uncontrolled (Chronic) Peripheral vascular disease (Chronic) History of right below knee amputation (Chronic) 09/05/2019 Coronary artery disease (Chronic) Hypertension (Chronic) Overweight (BMI 25.0-29.9) (Chronic) Tobacco dependence in remission (Chronic) quit in [place] (Chronic) Vitamin D deficiency (Chronic) Allergies/Adverse Reactions: Allergies No Known Allergies Allergy (Verified 08/21/19 14:43) Home Medications: Ambulatory Orders Medication Instructions Recorded Acetaminophen [Tylenol] 1,000 mg PO Q8 09/11/19 Aspir 81 1 tab PO DAILY 09/11/19 Atorvastatin Calcium [Lipitor] 40 mg PO DAILY 09/11/19 Gabapentin [Neurontin] 1 cap PO Q8 09/11/19 Glimepiride 4 mg PO BID 09/11/19 Levothyroxine [Synthroid] 25 mcg PO DAILY 09/11/19 Lisinopril [Prinivil] 10 mg PO DAILY 09/11/19 Metformin HCl 1,000 mg PO BID 09/11/19 Oxycodone [Oxyir] 5 mg PO Q6H PRN PRN 09/11/19 Pioglitazone [Actos] 30 mg PO DAILY 09/11/19 - Social History SMOKING STATUS:: Former smoker Vital Signs Temp Pulse Resp BP Pulse Ox 97.9 F 84 18 160/81 H 98 09/18/19 08:14 09/18/19 08:14 09/18/19 08:14 09/18/19 08:14 09/18/19 08:14 Oxygen Delivery Method Room Air Weight: 87.2 kg Body Mass Index (BMI) 26.9 Laboratory Tests Past 24 Hrs 09/18/19 09/18/19 09/18/19 06:05 06:05 06:05 WBC 11.4 H RBC 3.32 L Hgb 9.7 L Hct 30.8 L MCV 92.8 MCH 29.2 MCHC 31.5 L RDW Std Deviation 53.5 H RDW Coeff of Sheri 16.6 H Plt Count 446 MPV 8.9 Immature Gran % (Auto) 2.500 H Neut % (Auto) 61.3 Lymph % (Auto) 24.4 [place] % (Auto) 9.3 Eos % (Auto) 2.2 Baso % (Auto) 0.3 Absolute Neuts (auto) 7.0 Absolute Lymphs (auto) 2.78 Nucleated RBC % 0.3 ESR Sodium 137 Potassium 4.3 Chloride 104 Carbon Dioxide 27.0 Anion Gap 6 BUN 30 H Creatinine 0.84 Estim Creat Clear Calc 74.83 Est GFR (MDRD) Af Amer 114 Est GFR (MDRD) Non-Af 95 BUN/Creatinine Ratio 35.9 H Glucose 190 H Calcium 8.9 Phosphorus 2.6 Magnesium 1.7 C-React Prot Ext Range Urine Color Urine Clarity Urine pH Ur Specific [place] Urine Protein Urine Glucose (UA) Urine Ketones Urine Occult Blood Urine Nitrite Urine Bilirubin Urine Urobilinogen Ur Leukocyte Esterase Urine RBC Urine WBC Ur Squamous Epith Cells Urine Bacteria Urine Mucus 09/18/19 09/18/19 09/18/19 06:05 06:05 13:45 WBC RBC Hgb Hct MCV MCH MCHC RDW Std Deviation RDW Coeff of Sheri Plt Count MPV Immature Gran % (Auto) Neut % (Auto) Lymph % (Auto) [place] % (Auto) Eos % (Auto) Baso % (Auto) Absolute Neuts (auto) Absolute Lymphs (auto) Nucleated RBC % ESR 74 H Sodium Potassium Chloride Carbon Dioxide Anion Gap BUN Creatinine Estim Creat Clear Calc Est GFR (MDRD) Af Amer Est GFR (MDRD) Non-Af BUN/Creatinine Ratio Glucose Calcium Phosphorus Magnesium C-React Prot Ext Range 18.40 H Urine Color Pending Urine Clarity Pending Urine pH Pending Ur Specific [place] Pending Urine Protein Pending Urine Glucose (UA) Pending Urine Ketones Pending Urine Occult Blood Pending Urine Nitrite Pending Urine Bilirubin Pending Urine Urobilinogen Pending Ur Leukocyte Esterase Pending Urine RBC Pending Urine WBC Pending Ur Squamous Epith Cells Pending Urine Bacteria Pending Urine Mucus Pending - Other Studies Radiology: [] reviewed Other Studies: [] Route of nutrition/ use of supplements: [] Nutritional Intake: [] IV Site: [] Diamond Catheter: [] - Physical Exam General: Alert, Oriented x3, Cooperative, No apparent distress HEENT: Atraumatic, PERRLA, EOMI Neck: Supple, No Nodes Lungs: Clear to auscultation, Normal air movement Cardiovascular: Regular rate, Regular Rhythm, No murmurs Abdomen: Soft, Non Tender, Non-Distended Extremities: No edema Skin: - - L heel with intact bulla. R BKA incision minimal redness, luly in place. R groin incision, mild redness, no drainage, some induration. IV Site: Peripheral, without redness Musculoskeletal: No Tenderness to Palpation of Joints or Extremities Neurological: Cranial nerves II-XII grossly intact - Assessment/Plan Antibiotics: [] Assessment/Plan: [] Active and Suspected Problems (Last Reviewed 09/12/19 @ 08:[address] Kyara King, DO) Malnutrition (Acute) Hypothyroidism (Acute) Hyperlipidemia (Acute) H/O endarterectomy (Acute) R femoral on 09/02/19 Acute blood loss anemia (Acute) Decubitus ulcer, stage II (Acute) lateral malleolus Suspected R groin superficial cellulitis of incision - u/s showed 2 small collections. I think it would be reasonable to do short course of doxy and keflex to see if redness can improve. Mild rise in wbc since admission here, he is feeling great. No fever. Will follow, thank you, d/w Dr. King.
[2019-09-18 15:03] LABS: Squamous Epithelial Cells - UA 0-5 SEEN /hpf (0-5); White Blood Cells 0-5 SEEN /hpf (0-5)
[2019-09-18] MEDS: Cephalexin 500 MG Capsule PO ×2 (16:22→20:24)
[2019-09-18 16:46] LABS: Bedside Glucose 143 mg/dL (70-110)
[2019-09-18 19:09] VITALS: BP 142/81; PULSE 100; RESP 18; TEMP 36.7; O2SAT 98
[2019-09-18] MEDS: Gabapentin 600 MG Tablet PO (20:12)
[2019-09-18] MEDS: Atorvastatin Calcium 40 MG Tablet PO (20:26)
[2019-09-18] MEDS: Senna/Docusate Sodium 1 Tablet 2 TABLET PO (20:27)
[2019-09-18 21:31] LABS: Bedside Glucose 231 mg/dL (70-110)
[2019-09-18 22:00] VITALS: PULSE 100; RESP 18; O2SAT 98
[2019-09-19] MEDS: Acetaminophen 500 MG Tablet 1000 MG PO ×3 (05:45→20:29)
[2019-09-19] MEDS: Gabapentin 100 MG Capsule 200 MG PO ×2 (05:45→14:01)
[2019-09-19] MEDS: Enoxaparin 40 MG/0.4 ML Syringe SC (05:45)
[2019-09-19] MEDS: Cephalexin 500 MG Capsule PO ×3 (05:45→20:27)
[2019-09-19] MEDS: Levothyroxine 25 MCG TABLET PO (05:45)
[2019-09-19 07:48] LABS: Bedside Glucose 196 mg/dL (70-110)
[2019-09-19] MEDS: Aspirin E.C. 81 MG Tablet PO (08:30)
[2019-09-19] MEDS: Insulin Lispro 100 UNIT/ML INSULN.PEN 6 UNIT SC ×2 (08:30→12:07)
[2019-09-19] MEDS: Famotidine 20 MG Tablet PO ×2 (08:30→20:29)
[2019-09-19] MEDS: Menthol/Lanolin/Calamine/Znox 113 GM Tube 1 APPLIC TOPICAL ×2 (08:30→20:26)
[2019-09-19] MEDS: metFORMIN HCl 1,000 MG Tablet 1000 MG PO ×2 (08:30→16:34)
[2019-09-19] MEDS: Doxycycline 100 MG CAPSULE PO ×2 (08:30→20:27)
[2019-09-19] MEDS: Senna/Docusate Sodium 1 Tablet 2 TABLET PO (08:30)
[2019-09-19] MEDS: Lisinopril 10 MG Tablet PO (08:30)
[2019-09-19] MEDS: Magnesium Oxide 400 MG Tablet PO ×2 (08:30→16:33)
[2019-09-19] MEDS: Ascorbic Acid 500 MG Tablet PO ×2 (08:30→16:33)
[2019-09-19] MEDS: Multivitamins,Therapeutic Tablet 1 TABLET PO (08:30)
[2019-09-19] MEDS: Insulin Lispro 100 UNIT/ML INSULN.PEN SC ×3 (08:30→16:37)
[2019-09-19 09:33] VITALS: BP 150/73; PULSE 92; RESP 18; TEMP 36.6; O2SAT 96
--- NOTE | 2019-09-19 09:52 | PN_ITS ---
Patient Problems: Active and Suspected Problems (Last Reviewed 09/12/19 @ 08:[address] Kyara King, DO) Malnutrition (Acute) Hypothyroidism (Acute) Hyperlipidemia (Acute) H/O endarterectomy (Acute) R femoral on 09/02/19 Acute blood loss anemia (Acute) Decubitus ulcer, stage II (Acute) lateral malleolus Subjective: Patient was seen today for follow up on left foot. Patient has no new pedal complaints. He is resting comfortably in bed w/ heel offloaded. - Physical Exam Vitals/I&O's: Vital Signs Temp Pulse Resp BP Pulse Ox 97.8 F 92 18 150/73 H 96 09/19/19 09:33 09/19/19 09:33 09/19/19 09:33 09/19/19 09:33 09/19/19 09:33 Oxygen Delivery Method Room Air Weight: 87.2 kg Body Mass Index (BMI) 26.9 Intake and Output for Last 24 Hours 09/17/19 09/18/19 09/19/19 23:59 23:59 23:59 Intake Total 3600 / 3600 1440 / 1440 120 / 120 Output Total 1350 / 1350 1300 / 1300 350 / 350 Balance 2250 / 2250 140 / 140 -230 / -230 General: Alert, Oriented x3, Cooperative, No apparent distress Laboratory Results 09/18/19 06:05: Sodium 137, Potassium 4.3, Chloride 104, Carbon Dioxide 27.0, Anion Gap 6, BUN 30 H, Creatinine 0.84, Estim Creat Clear Calc 74.83, Est GFR (MDRD) Af Amer 114, Est GFR (MDRD) Non-Af 95, BUN/Creatinine Ratio 35.9 H, Glucose 190 H, Calcium 8.9 09/18/19 06:05: ESR 74 H 09/18/19 06:05: C-React Prot Ext Range 18.40 H 09/18/19 11:35: POC Glucose 213 H 09/18/19 13:45: Urine Color Yellow, Urine Clarity Clear, Urine pH 6.0, Ur Specific [place] 1.010, Urine Protein 30 H, Urine Glucose (UA) 1000 H, Urine Ketones Negative, Urine Occult Blood Negative, Urine Nitrite Negative, Urine Bilirubin Negative, Urine Urobilinogen Normal, Ur Leukocyte Esterase Negative, Urine RBC 0 SEEN, Urine WBC 0-5 SEEN, Ur Squamous Epith Cells 0-5 SEEN, Urine Bacteria 0 SEEN, Urine Mucus 0 SEEN 09/18/19 16:33: POC Glucose 143 H 09/18/19 21:08: POC Glucose 231 H 09/19/19 05:40: POC Glucose 196 H Current Medications Acetaminophen (Tylenol) 1,000 mg PO Q8 [facility] Last Admin: 09/18/19 21:33 Dose: 1,000 mg Documented by: Ascorbic Acid (Vitamin C) 500 mg PO BIDCM [facility] Last Admin: 09/18/19 17:23 Dose: 500 mg Documented by: Aspirin (Ecotrin) 81 mg PO DAILY@0800 [facility] Last Admin: 09/18/19 08:23 Dose: 81 mg Documented by: Atorvastatin Calcium (Lipitor) 40 mg PO QHS [facility] Last Admin: 09/18/19 20:26 Dose: 40 mg Documented by: Bisacodyl (Dulcolax) 10 mg RECTAL .PRN X 1 PRN PRN Reason: Constipation Calamine/Phenol (Calmoseptine Ointment) 1 applic TOPICAL BID [facility]; Protocol Last Admin: 09/18/19 20:25 Dose: 1 applicatio Documented by: Capsaicin (Zostrix) 1 applic TOPICAL BID [facility]; Protocol Last Admin: 09/18/19 20:27 Dose: 1 applicatio Documented by: Cephalexin (Keflex) 500 mg PO Q8 [facility] Last Admin: 09/18/19 20:24 Dose: 500 mg Documented by: Dextrose (D50w Syringe) 0 gm IV X1 PRN; Protocol PRN Reason: Hypoglycemia Doxycycline Monohydrate (Doxycycline) 100 mg PO BID [facility] Last Admin: 09/18/19 20:25 Dose: 100 mg Documented by: Enoxaparin Sodium (Lovenox) 40 mg SC DAILY@0600 [facility] Last Admin: 09/18/19 06:05 Dose: 40 mg Documented by: Ergocalciferol (Vitamin D) 50,000 unit PO Fr@1000 [facility] Last Admin: 09/13/19 14:42 Dose: 50,000 unit Documented by: Famotidine (Pepcid) 20 mg PO BID [facility] Last Admin: 09/18/19 20:26 Dose: 20 mg Documented by: Gabapentin (Neurontin) 200 mg PO BID@0600,1400 [facility] Last Admin: 09/18/19 15:19 Dose: 200 mg Documented by: Gabapentin (Neurontin) 600 mg PO DAILY@1999 [facility] Last Admin: 09/18/19 20:12 Dose: 600 mg Documented by: Glucagon () 1 mg IM .X1 PRN PRN Reason: Hypoglycemia Insulin Glargine (Lantus (Bkc)) 10 units SC QHS [facility] Last Admin: 09/18/19 21:35 Dose: 10 units Documented by: Insulin Human Lispro (Humalog Kwikpen (Bk)) 6 unit SC TIDAC [facility] Last Admin: 09/18/19 17:21 Dose: 6 u Documented by: Insulin Human Lispro (Humalog Kwikpen (Bkc)) 0 unit SC ACHS [facility]; Protocol Last Admin: 09/18/19 21:36 Dose: 6 u Documented by: Levothyroxine Sodium (Synthroid) 25 mcg PO DAILY@0600 [facility] Last Admin: 09/18/19 06:07 Dose: 25 mcg Documented by: Lisinopril (Zestril) 10 mg PO DAILY [facility] Last Admin: 09/18/19 08:24 Dose: 10 mg Documented by: Magnesium Hydroxide (Milk Of Magnesia) 30 ml PO .PRN X 1 PRN PRN Reason: Constipation [facility]) [facility] Admin: 09/18/19 17:24 Dose: 400 mg Documented by: Metformin HCl (Glucophage) [facility] Last Admin: 09/18/19 17:23 Dose: 1,000 mg Documented by: Multivitamins (Multivitamin) [facility] Last Admin: 09/18/19 08:23 Dose: 1 tablet Documented by: Nutritional Formula (Thong - [place] Flavor) [facility] Last Admin: 09/18/19 17:23 Dose: 1 packet Documented by: Oxycodone HCl (Oxyir) 5 - 10 mg PO Q4H PRN PRN PRN Reason: Pain Score 1-10/10 Last Admin: 09/18/19 17:27 Dose: 10 mg Documented by: Senna/Docusate Sodium (Senokot-S, Teresita-Colace) 2 tablet PO BID [facility] Last Admin: 09/18/19 20:27 Dose: 2 tablet Documented by: Sodium Chloride () 10 - 40 ml IV UD PRN PRN Reason: SALINE FLUSH Last Admin: 09/18/19 20:17 Dose: 10 ml Documented by: Zinc Sulfate (Zinc Sulfate) 220 mg PO DAILY [facility] Last Admin: 09/18/19 08:24 Dose: 220 mg Documented by: Medical Necessity - Tobacco Use Smoking Status: Former smoker - quit in the Tobacco Use: Non-smoker Assessment/Plan All Active Problems (Last Reviewed 09/12/19 @ 08:[address] Kyara King, DO) Malnutrition (Acute) Hypothyroidism (Acute) Hyperlipidemia (Acute) H/O endarterectomy (Acute) Acute blood loss anemia (Acute) Decubitus ulcer, stage II (Acute) Posterior heel pressure ulcer - unstagable Peripheral arterial disease lower extremity Diabetes We had ordered offloading heel boot for patient, but up arrival appears he has obtained an offloading multipodus boot. Patient relates he got this yesterday. This was examined, it is completely floating heel and protecting foot. He is going to continue to use the offloading multipodus boot. Keep heel offloaded at all times. Podiatry will continue to follow weekly to check progress on heel pressure site.
--- NOTE | 2019-09-19 10:53 | CASEMGMT ---
Addendum entered by Carly Kramer 09/20/19 14:34: [facility] not accepting pt's insurance at this time. Notified pt and pt to choose other SNFs to refer to. Will continue to follow. Original Note: Social Work Met with pt to complete Medicaid application-faxed application. Talked with pt about alternative DC plans, pt agreeable to LTC facility if home is not a safe option for DC. Gave list of SNF to patient, pt requesting [facility]-made referral. Marilyn Franco, social work clinical nursing intern Carly Kramer, LEAD DENTAL ASSISTANT TIRE TECHNICIAN
[2019-09-19] MEDS: Capsaicin 0.025% 1 APPLIC Tube TOPICAL ×2 (11:07→20:30)
--- NOTE | 2019-09-19 11:16 | PCM.PN.BLA ---
Progress Note Day #2 Keflex and doxycycline Afebile VSS-systolic blood pressures are still mildly elevated. Will need to adjust medications. Maintaining appropriate oxygen saturation on RA Oral intake is good He has put on a few lbs since admission and is doing well Discussed with nursing - no problems that need addressed Reviewed the PT/OT notes Medication list reviewed. Blood sugar record was reviewed and the insulin regimen was adjusted. Denies pain. Denies cough, shortness of breath, sore throat, nausea/vomiting/diarrhea/abdominal pain. I reviewed Dr. Rodrigues's consult and appreciate his input. Alert, no apparent distress Lungs-clear to auscultation Heart regular rate and rhythm Abdomen soft, nontender, bowel sounds present No edema of the left lower extremity did not examine the wounds today because nursing had just changed the dressings. Reminded nursing that I will be examining the wounds in the AM and not to change the dressings until I was present. Impressions 1. Superficial cellulitis with 2 small fluid collections at the site of the right groin incision. Continue antibiotics. Recheck lab on Monday. 2. Diabetes mellitus type 2-adjustments made to the insulin regimen. The goal for this gentleman is a hemoglobin A1c 7 or less. 3. Hypertension-increase the lisinopril dosage to 15 mg daily and continue to monitor blood pressure. 4. Status post recent BKA on the right 5. Peripheral vascular disease BL LE's STROKE Vital Signs/Narrative: Vital Signs Temp Pulse Resp BP Pulse Ox 09/19/19 09:33 97.8 F 92 18 150/73 H 96 Inpatient E&M: 77974 Subs Hosp L1
[2019-09-19 12:21] LABS: Bedside Glucose 170 mg/dL (70-110)
[2019-09-19] MEDS: oxyCODONE 5 MG Tablet PO (16:33)
[2019-09-19] MEDS: Insulin Lispro 100 UNIT/ML INSULN.PEN 14 UNIT SC (16:36)
[2019-09-19 17:01] LABS: Bedside Glucose 192 mg/dL (70-110)
[2019-09-19] MEDS: Gabapentin 600 MG Tablet PO (20:26)
[2019-09-19] MEDS: Atorvastatin Calcium 40 MG Tablet PO (20:29)
[2019-09-19 20:39] VITALS: BP 154/81; PULSE 97; RESP 16; TEMP 36.7; O2SAT 98
[2019-09-19 20:41] LABS: Bedside Glucose 124 mg/dL (70-110)
[2019-09-20] MEDS: Enoxaparin 40 MG/0.4 ML Syringe SC (05:23)
[2019-09-20] MEDS: Cephalexin 500 MG Capsule PO ×3 (05:23→21:06)
[2019-09-20] MEDS: Levothyroxine 25 MCG TABLET PO (05:24)
[2019-09-20] MEDS: Acetaminophen 500 MG Tablet 1000 MG PO ×3 (05:24→21:05)
[2019-09-20] MEDS: Gabapentin 100 MG Capsule 200 MG PO ×2 (05:25→12:22)
[2019-09-20] MEDS: oxyCODONE 5 MG Tablet PO ×3 (05:26→16:56)
[2019-09-20 06:25] LABS: Bedside Glucose 184 mg/dL (70-110)
[2019-09-20 08:13] VITALS: BP 143/83; PULSE 99; RESP 16; TEMP 36.8; O2SAT 97
[2019-09-20] MEDS: Aspirin E.C. 81 MG Tablet PO (09:09)
[2019-09-20] MEDS: Insulin Lispro 100 UNIT/ML INSULN.PEN SC ×4 (09:09→21:08)
[2019-09-20] MEDS: metFORMIN HCl 1,000 MG Tablet 1000 MG PO ×2 (09:10→16:45)
[2019-09-20] MEDS: Insulin Lispro 100 UNIT/ML INSULN.PEN 8 UNIT SC (09:10)
[2019-09-20] MEDS: Magnesium Oxide 400 MG Tablet PO ×2 (09:11→16:47)
[2019-09-20] MEDS: Ascorbic Acid 500 MG Tablet PO ×2 (09:11→16:46)
[2019-09-20] MEDS: Senna/Docusate Sodium 1 Tablet 2 TABLET PO ×2 (09:12→21:06)
[2019-09-20] MEDS: Famotidine 20 MG Tablet PO ×2 (09:12→21:06)
[2019-09-20] MEDS: Multivitamins,Therapeutic Tablet 1 TABLET PO (09:12)
[2019-09-20] MEDS: Doxycycline 100 MG CAPSULE PO ×2 (09:12→21:06)
[2019-09-20] MEDS: Lisinopril 10 MG Tablet PO (09:13)
--- NOTE | 2019-09-20 09:15 | PCM.PN.BLA ---
Progress Note Afebile VSS-systolic blood pressure remains elevated. Lisinopril was increased to 20 mg p.o. daily and he will receive his first dose today. Maintaining appropriate oxygen saturation on RA Oral intake is good Last bowel movement was 09/17/2019. Discussed with nursing - no problems that need addressed Reviewed the PT/OT notes Medication list reviewed. Wound culture grew less than 1000 colonies of gram-positive cocci possibly enterococcus and less than 1000 colonies of coag negative staph. Blood sugar record was reviewed. Blood sugars are improving with adjustments in the mealtime dosing. Pain is adequately controlled. Denies cough, chest pain, sore throat, shortness of breath. Alert, oriented x3, no apparent distress All wounds were examined today and the ostomy nurse and Dr. Rodrigues were present. The right groin incision is less erythematous today. There is no significant discharge. The induration is less and a few days ago. Pain with palpation is minimal today. The left heel decubitus is not open and there is an eschar present. No discharge, no periwound erythema, no fluctuance. The decubitus ulcer on the left lateral malleolus has a scab and the wound is leanna. The incision is intact on the stump with no lenin-incisional erythema and no purulent discharge. Heart-regular rate and rhythm Lungs-clear to auscultation Abdomen-soft, nontender, nondistended Impressions 1. cellulitis 2. unstageable decub on the Left heel 3, healing decub on the left lateral malleolus 4. Diabetes mellitus type 1-[id number] with adjustments in the insulin 5. Hypertension with consistent systolics greater than 135-lisinopril increased to 20 mg daily and will continue to monitor blood pressures 6. Status post right BKA Continue therapy Continue antibiotics STROKE Vital Signs/Narrative: Vital Signs Temp Pulse Resp BP Pulse Ox 09/20/19 08:13 98.3 F 99 16 143/83 H 97 Inpatient E&M: 43440 Subs Hosp L2
[2019-09-20] MEDS: Capsaicin 0.025% 1 APPLIC Tube TOPICAL ×2 (09:16→21:05)
[2019-09-20] MEDS: Menthol/Lanolin/Calamine/Znox 113 GM Tube 1 APPLIC TOPICAL ×2 (09:30→21:06)
[2019-09-20 11:15] LABS: Bedside Glucose 225 mg/dL (70-110)
[2019-09-20] MEDS: Insulin Lispro 100 UNIT/ML INSULN.PEN 10 UNIT SC (11:47)
[2019-09-20] MEDS: Lisinopril 20 MG Tablet 10 MG PO (12:13)
--- NOTE | 2019-09-20 12:55 | NURSING ---
wound photo: left lateral ankle
--- NOTE | 2019-09-20 12:55 | NURSING ---
wound photo: left heel
--- NOTE | 2019-09-20 14:31 | PCM.PN.ID ---
Patient Problems: Active and Suspected Problems (Last Reviewed 09/12/19 @ 08:[address] Kyara King, DO) Malnutrition (Acute) Hypothyroidism (Acute) Hyperlipidemia (Acute) H/O endarterectomy (Acute) R femoral on 09/02/19 Acute blood loss anemia (Acute) Decubitus ulcer, stage II (Acute) lateral malleolus Subjective: Pain improved, no fever, no n/v/d. - Physical Exam Vitals/I&O's: Vital Signs Temp Pulse Resp BP Pulse Ox 98.3 F 99 16 143/83 H 97 09/20/19 08:13 09/20/19 08:13 09/20/19 08:13 09/20/19 08:13 09/20/19 08:13 Oxygen Delivery Method Room Air Weight: 87.2 kg Body Mass Index (BMI) 26.9 Intake and Output for Last 24 Hours 09/18/19 09/19/19 09/20/19 23:59 23:59 23:59 Intake Total 1440 / 1440 1220 / 1220 540 / 540 Output Total 1300 / 1300 1550 / 1550 Balance 140 / 140 -330 / -330 540 / 540 General: Alert, Cooperative, No apparent distress Lungs: Clear to auscultation, Normal air movement Cardiovascular: Regular rate, Regular Rhythm Abdomen: Soft, Non Tender, Non-Distended Skin: Ulcer/ Wound - R groin less red, less indurated Microbiology Past 72 Hours 09/18/19 13:45 Urine, Clean Catch Urine Culture - Final GPC Poss Enterococcus sp Coag Negative Staph Laboratory Results 09/19/19 16:37: POC Glucose 192 H 09/19/19 20:24: POC Glucose 124 H 09/20/19 06:19: POC Glucose 184 H 09/20/19 11:11: POC Glucose 225 H Current Medications Acetaminophen (Tylenol) 1,000 mg PO Q8 [facility] Last Admin: 09/20/19 12:22 Dose: 1,000 mg Documented by: Ascorbic Acid (Vitamin C) 500 mg PO BIDCM [facility] Last Admin: 09/20/19 09:11 Dose: 500 mg Documented by: Aspirin (Ecotrin) 81 mg PO DAILY@0800 [facility] Last Admin: 09/20/19 09:09 Dose: 81 mg Documented by: Atorvastatin Calcium (Lipitor) 40 mg PO QHS [facility] Last Admin: 09/19/19 20:29 Dose: 40 mg Documented by: Bisacodyl (Dulcolax) 10 mg RECTAL .PRN X 1 PRN PRN Reason: Constipation Calamine/Phenol (Calmoseptine Ointment) 1 applic TOPICAL BID [facility]; Protocol Last Admin: 09/20/19 09:30 Dose: 1 applicatio Documented by: Capsaicin (Zostrix) 1 applic TOPICAL BID [facility]; Protocol Last Admin: 09/20/19 09:16 Dose: 1 applicatio Documented by: Cephalexin (Keflex) 500 mg PO Q8 [facility] Last Admin: 09/20/19 12:22 Dose: 500 mg Documented by: Dextrose (D50w Syringe) 0 gm IV X1 PRN; Protocol PRN Reason: Hypoglycemia Doxycycline Monohydrate (Doxycycline) 100 mg PO BID [facility] Last Admin: 09/20/19 09:12 Dose: 100 mg Documented by: Enoxaparin Sodium (Lovenox) 40 mg SC DAILY@0600 [facility] Last Admin: 09/20/19 05:23 Dose: 40 mg Documented by: Ergocalciferol (Vitamin D) 50,000 unit PO Fr@1000 [facility] Last Admin: 09/20/19 09:13 Dose: 50,000 unit Documented by: Famotidine (Pepcid) 20 mg PO BID [facility] Last Admin: 09/20/19 09:12 Dose: 20 mg Documented by: Gabapentin (Neurontin) 200 mg PO BID@0600,1400 [facility] Last Admin: 09/20/19 12:22 Dose: 200 mg Documented by: Gabapentin (Neurontin) 600 mg PO DAILY@2000 [facility] Last Admin: 09/19/19 20:26 Dose: 600 mg Documented by: Glucagon () 1 mg IM .X1 PRN PRN Reason: Hypoglycemia Insulin Glargine (Lantus (Bkc)) 16 units SC QHS [facility] Last Admin: 09/19/19 20:27 Dose: 16 u Documented by: Insulin Human Lispro (Humalog Kwikpen (Bkc)) 0 unit SC ACHS [facility]; Protocol Last Admin: 09/20/19 11:47 Dose: 6 u Documented by: Insulin Human Lispro (Humalog Kwikpen (Bkc)) 8 unit SC BREAKFAST [facility] Last Admin: 09/20/19 09:10 Dose: 8 u Documented by: Insulin Human Lispro (Humalog Kwikpen (Bkc)) 10 unit SC LUNCH [facility] Last Admin: 09/20/19 11:47 Dose: 10 u Documented by: Insulin Human Lispro (Humalog Kwikpen (Bk)) 14 unit SC DINNER [facility] Last Admin: 09/19/19 16:36 Dose: 14 u Documented by: Levothyroxine Sodium (Synthroid) 25 mcg PO DAILY@0600 [facility] Last Admin: 09/20/19 05:24 Dose: 25 mcg Documented by: Lisinopril (Zestril) 20 mg PO DAILY [facility] Magnesium Hydroxide (Milk Of Magnesia) 30 ml PO .PRN X 1 PRN PRN Reason: Constipation Magnesium Oxide (Mag-Ox 400) [facility] Last Admin: 09/20/19 09:11 Dose: 400 mg Documented by: Metformin HCl (Glucophage) 1,[facility] mg [facility] Last Admin: 09/20/19 09:10 Dose: 1,000 mg Documented by: Multivitamins (Multivitamin) 1 tablet [facility] Last Admin: 09/20/19 09:12 Dose: 1 tablet Documented by: Nutritional Formula (Thong - [place] Flavor) [facility] packet [facility] Last Admin: 09/20/19 09:10 Dose: 1 packet Documented by: Oxycodone HCl (Oxyir) 5 - 10 mg PO Q4H PRN PRN PRN Reason: Pain Score 1-10/10 Last Admin: 09/20/19 09:26 Dose: 10 mg Documented by: Polyethylene Glycol (Miralax) 17 gm PO DAILY [facility] Senna/Docusate Sodium (Senokot-S, Teresita-Colace) 2 tablet PO BID [facility] Last Admin: 09/20/19 09:12 Dose: 2 tablet Documented by: Sodium Chloride () 10 - 40 ml IV UD PRN PRN Reason: SALINE FLUSH Last Admin: 09/18/19 20:17 Dose: 10 ml Documented by: Zinc Sulfate (Zinc Sulfate) 220 mg PO DAILY [facility] Last Admin: 09/20/19 09:13 Dose: 220 mg Documented by: Medical Necessity - Tobacco Use Smoking Status: Former smoker - quit in the Tobacco Use: Non-smoker Route of nutrition/ use of supplements: [] Nutritional Intake: [] IV Site: [] Diamond Catheter: [] - Assessment/Plan Antibiotics: [] Assessment/Plan: [] Active and Suspected Problems (Last Reviewed 09/12/19 @ 08:[address] Kyara King, DO) Malnutrition (Acute) Hypothyroidism (Acute) Hyperlipidemia (Acute) H/O endarterectomy (Acute) R femoral on 09/02/19 Acute blood loss anemia (Acute) Decubitus ulcer, stage II (Acute) lateral malleolus Suspected R groin superficial cellulitis of incision - u/s showed 2 small collections. Mild rise in wbc since admission here, he is feeling great. No fever. Incision in R groin looks better, plan on 4 more days of abx. Will follow, d/w Dr. King.
[2019-09-20] MEDS: Polyethylene Glycol 3350 17 GM PACKET PO (16:44)
[2019-09-20 16:45] LABS: Bedside Glucose 190 mg/dL (70-110)
[2019-09-20] MEDS: 0.9% Saline Lock 10 ML Syringe IV ×2 (16:47→21:20)
[2019-09-20] MEDS: Insulin Lispro 100 UNIT/ML INSULN.PEN 14 UNIT SC (17:00)
[2019-09-20 19:04] VITALS: BP 105/62; PULSE 107; RESP 20; TEMP 36.9
[2019-09-20] MEDS: Gabapentin 600 MG Tablet PO (19:37)
[2019-09-20] MEDS: Atorvastatin Calcium 40 MG Tablet PO (21:06)
[2019-09-20] MEDS: Magnesium Hydroxide 30 ML UDC PO (21:11)
[2019-09-20 21:26] LABS: Bedside Glucose 179 mg/dL (70-110)
[2019-09-21] MEDS: oxyCODONE 5 MG Tablet PO (04:55)
[2019-09-21] MEDS: Acetaminophen 500 MG Tablet 1000 MG PO ×3 (05:27→20:03)
[2019-09-21] MEDS: Gabapentin 100 MG Capsule 200 MG PO ×2 (05:27→14:38)
[2019-09-21] MEDS: Levothyroxine 25 MCG TABLET PO (05:27)
[2019-09-21] MEDS: Enoxaparin 40 MG/0.4 ML Syringe SC (05:27)
[2019-09-21] MEDS: Cephalexin 500 MG Capsule PO ×3 (05:29→20:04)
[2019-09-21 06:36] LABS: Bedside Glucose 207 mg/dL (70-110)
[2019-09-21 07:00] VITALS: BP 144/88; PULSE 90; RESP 12; TEMP 36.8; O2SAT 97
[2019-09-21] MEDS: Doxycycline 100 MG CAPSULE PO ×2 (07:52→20:04)
[2019-09-21] MEDS: Multivitamins,Therapeutic Tablet 1 TABLET PO (07:52)
[2019-09-21] MEDS: Famotidine 20 MG Tablet PO ×2 (07:52→20:04)
[2019-09-21] MEDS: Magnesium Oxide 400 MG Tablet PO ×2 (07:52→17:11)
[2019-09-21] MEDS: Aspirin E.C. 81 MG Tablet PO (07:52)
[2019-09-21] MEDS: Ascorbic Acid 500 MG Tablet PO ×2 (07:52→17:11)
[2019-09-21] MEDS: Lisinopril 20 MG Tablet PO (07:52)
[2019-09-21] MEDS: metFORMIN HCl 1,000 MG Tablet 1000 MG PO ×2 (07:52→17:11)
[2019-09-21] MEDS: Insulin Lispro 100 UNIT/ML INSULN.PEN SC ×4 (07:53→22:04)
[2019-09-21] MEDS: Insulin Lispro 100 UNIT/ML INSULN.PEN 8 UNIT SC (07:53)
[2019-09-21] MEDS: Capsaicin 0.025% 1 APPLIC Tube TOPICAL ×2 (07:54→20:06)
[2019-09-21] MEDS: Menthol/Lanolin/Calamine/Znox 113 GM Tube 1 APPLIC TOPICAL ×2 (07:54→20:04)
[2019-09-21 11:55] LABS: Bedside Glucose 165 mg/dL (70-110)
[2019-09-21] MEDS: Insulin Lispro 100 UNIT/ML INSULN.PEN 10 UNIT SC (12:08)
[2019-09-21 16:56] LABS: Bedside Glucose 160 mg/dL (70-110)
[2019-09-21] MEDS: Insulin Lispro 100 UNIT/ML INSULN.PEN 14 UNIT SC (17:12)
[2019-09-21 18:56] VITALS: BP 125/65; PULSE 98; RESP 16; TEMP 37; O2SAT 98
[2019-09-21] MEDS: Gabapentin 600 MG Tablet PO (19:56)
[2019-09-21] MEDS: Atorvastatin Calcium 40 MG Tablet PO (20:04)
[2019-09-21 21:01] LABS: Bedside Glucose 194 mg/dL (70-110)
[2019-09-22] MEDS: Levothyroxine 25 MCG TABLET PO (05:28)
[2019-09-22] MEDS: Acetaminophen 500 MG Tablet 1000 MG PO ×3 (05:28→20:09)
[2019-09-22] MEDS: Cephalexin 500 MG Capsule PO ×3 (05:28→20:09)
[2019-09-22] MEDS: Gabapentin 100 MG Capsule 200 MG PO ×2 (05:28→14:42)
[2019-09-22] MEDS: Enoxaparin 40 MG/0.4 ML Syringe SC (05:29)
[2019-09-22 05:57] VITALS: BP 154/73; PULSE 86; RESP 16; TEMP 36.8; O2SAT 95
[2019-09-22 06:31] LABS: Bedside Glucose 228 mg/dL (70-110)
[2019-09-22] MEDS: Doxycycline 100 MG CAPSULE PO ×2 (07:36→20:09)
[2019-09-22] MEDS: Aspirin E.C. 81 MG Tablet PO (07:36)
[2019-09-22] MEDS: Ascorbic Acid 500 MG Tablet PO ×2 (07:36→17:19)
[2019-09-22] MEDS: Famotidine 20 MG Tablet PO ×2 (07:36→20:09)
[2019-09-22] MEDS: metFORMIN HCl 1,000 MG Tablet 1000 MG PO ×2 (07:36→17:19)
[2019-09-22] MEDS: Lisinopril 20 MG Tablet PO (07:36)
[2019-09-22] MEDS: Multivitamins,Therapeutic Tablet 1 TABLET PO (07:36)
[2019-09-22] MEDS: Magnesium Oxide 400 MG Tablet PO ×2 (07:36→17:19)
[2019-09-22] MEDS: Capsaicin 0.025% 1 APPLIC Tube TOPICAL ×2 (07:37→19:55)
[2019-09-22] MEDS: Insulin Lispro 100 UNIT/ML INSULN.PEN 8 UNIT SC (07:37)
[2019-09-22] MEDS: Insulin Lispro 100 UNIT/ML INSULN.PEN SC ×3 (07:37→21:38)
[2019-09-22] MEDS: Menthol/Lanolin/Calamine/Znox 113 GM Tube 1 APPLIC TOPICAL ×2 (07:38→19:54)
[2019-09-22 11:55] LABS: Bedside Glucose 141 mg/dL (70-110)
[2019-09-22] MEDS: Insulin Lispro 100 UNIT/ML INSULN.PEN 10 UNIT SC (12:04)
[2019-09-22 16:55] LABS: Bedside Glucose 180 mg/dL (70-110)
[2019-09-22] MEDS: Insulin Lispro 100 UNIT/ML INSULN.PEN 14 UNIT SC (17:19)
[2019-09-22 19:39] VITALS: BP 126/62; PULSE 112; RESP 20; TEMP 36.5; O2SAT 96
[2019-09-22] MEDS: Gabapentin 600 MG Tablet PO (19:48)
[2019-09-22 20:00] VITALS: PULSE 88
[2019-09-22] MEDS: Atorvastatin Calcium 40 MG Tablet PO (20:09)
[2019-09-22 20:56] LABS: Bedside Glucose 185 mg/dL (70-110)
[2019-09-23] MEDS: Gabapentin 100 MG Capsule 200 MG PO ×2 (05:09→15:04)
[2019-09-23] MEDS: Acetaminophen 500 MG Tablet 1000 MG PO ×3 (05:09→21:04)
[2019-09-23] MEDS: Cephalexin 500 MG Capsule PO ×3 (05:09→20:15)
[2019-09-23] MEDS: Levothyroxine 25 MCG TABLET PO (05:09)
[2019-09-23] MEDS: Enoxaparin 40 MG/0.4 ML Syringe SC (05:09)
[2019-09-23 05:46] VITALS: BP 140/71; PULSE 86; RESP 16; TEMP 36.6; O2SAT 97
[2019-09-23 06:15] LABS: Bedside Glucose 190 mg/dL (70-110)
[2019-09-23 06:18] LABS: Absolute Lymphocyte Count 2.49 X10^3/uL (0.83-4.51); Absolute Neutrophil Count 5.8 X10^3/uL (2.0-7.7); Basophil# 0.01 X10^3/uL; Basophil% 0.1 % (0-1); Eosinophil# 0.18 X10^3/uL; Eosinophils% 1.9 % (0-5); Hematocrit 33.1 % (40-54); Hemoglobin 10.4 g/dL (13.0-16.5); Lymphocyte # 2.49 X10^3/ul (4.0); Lymphocyte % 26.5 % (19-41); Mean Corp Hgb Conc 31.4 g/dL (32-36); Mean Corpuscular Hgb 28.3 pg (27.0-32.0); Mean Corpuscular Volume 90.2 fL (80-94); Mean Platelet Vol. 9.5 fl (6.2-12.0); Monocyte# 0.91 X10^3/uL; Monocyte% 9.7 % (0-10); NRBC Flagged by Analyzer 0 % (0-5); Neutrophil # 5.75 X10^3/uL (2.7-7.7); Neutrophil % 61.2 % (47-70); Platelet Count 421 K/mm3 (150-450); RBC Distribution Width CV 16.6 % (11.6-14.6); RBC Distribution Width SD 53.5 fl (35.1-43.9); Red Blood Count 3.67 M/mm3 (4.6-6.2); White Blood Count 9.4 K/mm3 (4.4-11.0)
[2019-09-23 06:39] LABS: Anion Gap 7 (5-15); BUN 38 mg/dL (7-18); BUN/Creat Ratio 46.3 RATIO (10-20); Chloride 104 mmol/L (98-107); Creatinine, Serum 0.82 mg/dL (0.70-1.30); EST Glomerular Filtration Rate 96 mL/min (>60); Est Glom Filt Rate - Afr Amer 117 mL/min (>60); Estimated Creatinine Clearance 76.66 ml/min; Glucose 192 mg/dL (74-106); Magnesium 1.4 mg/dL (1.6-2.6); Potassium 4.4 mmol/L (3.5-5.1); Sodium Level 137 mmol/L (136-145)
[2019-09-23] MEDS: Magnesium Oxide 400 MG Tablet PO ×2 (07:49→17:57)
[2019-09-23] MEDS: Aspirin E.C. 81 MG Tablet PO (07:49)
[2019-09-23] MEDS: Multivitamins,Therapeutic Tablet 1 TABLET PO (07:50)
[2019-09-23] MEDS: Doxycycline 100 MG CAPSULE PO ×2 (07:50→20:15)
[2019-09-23] MEDS: Lisinopril 20 MG Tablet PO (07:50)
[2019-09-23] MEDS: Famotidine 20 MG Tablet PO ×2 (07:50→20:15)
[2019-09-23] MEDS: Ascorbic Acid 500 MG Tablet PO ×2 (07:50→17:57)
[2019-09-23] MEDS: Capsaicin 0.025% 1 APPLIC Tube TOPICAL ×2 (07:51→20:11)
[2019-09-23] MEDS: oxyCODONE 5 MG Tablet PO ×3 (07:54→17:59)
--- NOTE | 2019-09-23 08:28 | PCM.PN.BLA ---
Progress Note Day #6/7 antibiotics, cephalexin and doxycycline. The patient was seen on team rounds today.Daughters Becca and Nina were on conference call for rounds. Afebile VSS - systolic BP is still > 140 in the morning. Maintaining appropriate oxygen saturation on RA Oral intake is good Good bowel function. Last bowel movement 09/22/2019 and he had 3 soft bowel movements that day. Discussed with nursing - no problems that need addressed Reviewed the PT/OT notes Medication list reviewed. All lab was personally reviewed. White blood cell count is normal at 9.4 today, down from 11.4 on 09/18/2019. Hemoglobin is 10.4, up from 8.8 at admission. Platelets are within normal limits. Sodium, potassium, chloride and CO2 are all within normal limits. BUN is 38 and the creatinine is 0.82 which is stable. Magnesium is once again low at 1.4 despite supplementation with Mag-Ox 400 mg twice daily. Blood sugar record was reviewed. Insulin dosages were adjusted. Alert, appropriate Lungs-clear to auscultation Heart-regular rate and rhythm Abdomen-soft, nontender, nondistended No edema left foot Will examine the wounds in the AM when the dressings are changed......I alerted nursing not to change the dressings until I am available Impressions 1. Status post right BKA 2. Cellulitis right groin incision-much improved. Patient is afebrile. White blood cell count is normal today. Differential is within normal limits. 3. Dehydration with a BUN/creatinine ratio of 46.3. IV fluids have been ordered. 4. Hypomagnesemia despite 400 mg of Mag-Ox twice daily. IV supplement has been ordered today. 5. Diabetes mellitus type 2-continue to adjust insulin to keep all blood sugars under 200. 6. Hypertension-a.m. systolic blood pressure is still a little high, metoprolol 12.5 mg p.o. nightly has been added to his drug regimen 7. Unstageable decubitus ulcer left heel-stable Add Metoprolol 12.5 mg Q HS to the antihypertensive regimen to control the AM BP. Keep Beta blockers to a minimum in light of the PVD in the LE's. BUN/creatinine ratio is 46.3. He consistently has greater output than input. Will start and IV of NS at 100 and also give 4 GM of IV Mag. Continue the SSI coverage until he is rarely needing coverage. We did discuss on the conference call that the patient likely will not be able to return to his home in a trailer. He will likely be wheelchair-bound for the rest of his life. Plan on SNF at discharge from inpatient rehab. The patient and his daughter are looking into potential SNF locations. Stressed the need for excellent blood pressure control, blood sugar control and lipid control if we are to prevent the progression of vascular disease that potentially could lead to left lower extremity amputation at some point. STROKE Vital Signs/Narrative: Vital Signs Temp Pulse Resp BP Pulse Ox 09/23/19 05:46 98 F 86 16 140/71 H 97 Inpatient E&M: 70499 Subs Hosp L2
[2019-09-23] MEDS: Insulin Lispro 100 UNIT/ML INSULN.PEN SC ×2 (09:45→11:59)
[2019-09-23] MEDS: Insulin Lispro 100 UNIT/ML INSULN.PEN 11 UNIT SC (09:46)
[2019-09-23] MEDS: metFORMIN HCl 1,000 MG Tablet 1000 MG PO ×2 (09:47→17:57)
--- NOTE | 2019-09-23 09:48 | CASEMGMT ---
Addendum entered by Carly Kramer 09/23/19 13:51: Spoke with dtr whom chose referral be made to [facility]. Referral made. Will continue to follow. Original Note: Social work Met with pt and pt dtrs via conference call for team meeting. Pt is transferring at [facility]-min assist with sliding board; therapy working on education for position sliding board for independence. Pt working on rage of motion and is able to go from sitting to standing and is able to stand less than one minute on left leg. However, pt is not walking d/t left heal ulcer. Pt is seated, supervised for all UE ADLS and is total assist for LE ADLS. Pt transfer into shower was min assist but out of shower was mod to max assist. Physician recommending pt see customer success specialist at [facility] and if ulcer on foot becomes worse, to f/u with epic kaleidoscope analyst. Explained insurance to pt-NRD 09/22, continued stay not guaranteed. Discussed with pt SNF options, emailed list to dtr to choose. Explained Medicaid application to dtr, potentially helping cover pt in facility if approved. Will continue to follow. Marilyn Franco, social work senior insight manager international Carly Kramer, HTML DEVELOPER [employer]ING RELAY ADJUSTER
[2019-09-23] MEDS: Menthol/Lanolin/Calamine/Znox 113 GM Tube 1 APPLIC TOPICAL ×2 (10:03→20:15)
[2019-09-23] MEDS: 0.9% Saline Lock 10 ML Syringe IV (10:45)
[2019-09-23] MEDS: Magnesium Sulfate 4gm/100mL 4 GM/100 ML IV.SOLN. IV (10:55)
[2019-09-23] MEDS: 0.9% Normal Saline 1,000 ML 100 ML IV (10:56)
[2019-09-23] MEDS: Insulin Lispro 100 UNIT/ML INSULN.PEN 13 UNIT SC (12:00)
[2019-09-23 12:06] LABS: Bedside Glucose 286 mg/dL (70-110)
[2019-09-23 12:10] LABS: Bedside Glucose 379 mg/dL (70-110)
[2019-09-23 12:10] LABS: Bedside Glucose 347 mg/dL (70-110)
[2019-09-23 17:15] LABS: Bedside Glucose 111 mg/dL (70-110)
[2019-09-23] MEDS: Insulin Lispro 100 UNIT/ML INSULN.PEN 18 UNIT SC (17:54)
[2019-09-23 18:43] VITALS: BP 103/60; PULSE 96; RESP 18; TEMP 36.9; O2SAT 95
[2019-09-23] MEDS: Gabapentin 600 MG Tablet PO (19:59)
[2019-09-23 20:13] VITALS: PULSE 96
[2019-09-23] MEDS: Metoprolol(XL)Succ 25 MG Tablet 12.5 MG PO (20:13)
[2019-09-23] MEDS: Atorvastatin Calcium 40 MG Tablet PO (20:15)
[2019-09-23 21:01] LABS: Bedside Glucose 128 mg/dL (70-110)
[2019-09-23 22:00] VITALS: RESP 18; O2SAT 95
[2019-09-24] MEDS: 0.9% Normal Saline 1,000 ML 100 ML IV ×3 (00:57→22:52)
[2019-09-24] MEDS: Enoxaparin 40 MG/0.4 ML Syringe SC (05:55)
[2019-09-24] MEDS: Cephalexin 500 MG Capsule PO (05:55)
[2019-09-24] MEDS: Gabapentin 100 MG Capsule 200 MG PO ×2 (05:55→14:22)
[2019-09-24] MEDS: Levothyroxine 25 MCG TABLET PO (05:56)
[2019-09-24] MEDS: Acetaminophen 500 MG Tablet 1000 MG PO ×3 (05:56→21:48)
[2019-09-24 06:55] LABS: Bedside Glucose 165 mg/dL (70-110)
[2019-09-24] MEDS: Polyethylene Glycol 3350 17 GM PACKET PO (07:38)
[2019-09-24] MEDS: Capsaicin 0.025% 1 APPLIC Tube TOPICAL ×2 (07:38→20:19)
[2019-09-24] MEDS: Lisinopril 20 MG Tablet PO (07:39)
[2019-09-24] MEDS: Multivitamins,Therapeutic Tablet 1 TABLET PO (07:39)
[2019-09-24] MEDS: Famotidine 20 MG Tablet PO ×2 (07:39→20:24)
[2019-09-24] MEDS: Aspirin E.C. 81 MG Tablet PO (07:39)
[2019-09-24] MEDS: Doxycycline 100 MG CAPSULE PO (07:39)
[2019-09-24] MEDS: Magnesium Oxide 400 MG Tablet PO ×2 (07:39→17:08)
[2019-09-24] MEDS: metFORMIN HCl 1,000 MG Tablet 1000 MG PO ×2 (07:39→17:08)
[2019-09-24] MEDS: Senna/Docusate Sodium 1 Tablet 2 TABLET PO (07:39)
[2019-09-24] MEDS: Ascorbic Acid 500 MG Tablet PO ×2 (07:39→17:08)
[2019-09-24] MEDS: Insulin Lispro 100 UNIT/ML INSULN.PEN SC ×3 (07:40→17:08)
[2019-09-24] MEDS: Insulin Lispro 100 UNIT/ML INSULN.PEN 11 UNIT SC (07:40)
--- NOTE | 2019-09-24 08:44 | PCM.PN.BLA ---
Progress Note Afebrile Blood pressure this morning is 152/75. The heart rate is 82. He was started on metoprolol 12.5 mg nightly on 09/23/2019. He is maintaining appropriate oxygen saturation on room air. Fluid balance for 09/23/2019 is 120. He is receiving IV NS at 100 cc/hr Blood sugar record was reviewed. At bedtime blood sugar was 128 and fasting blood sugar is 165. He is c/o not sleeping well last night due to pain in his legs. He did not take any pain medication at [facility] yesterday. No cough, no shortness of breath, no chest pain. Denies sore throat, nausea, abdominal pain. alert and NAD Heart-regular rate and rhythm Mucous membranes still dry The right groin incision has no lenin-incisional erythema today. Very small amount of serous fluid was expressed. The incision is intact. No lenin-incisional warmth to touch. The stump is shrinking and there is wrinkling of the skin. The incision is intact with no openings in the skin, no lenin-incisional erythema, no increased warmth to touch. The left lateral malleolus has a small scab with no other abnormal findings. The left heel unstageable decubitus ulcer is closed without any openings in the skin. There is no lenin-ulcer erythema. The area seems to be shrinking and healing. Impressions 1. Cellulitis of the Right groin incision - resolved. DC the antibiotics - had a 7 day course 2. unstageable decubitus ulcer on the left heel - doing well.....no openings in the skin and no erythema. Shrinking in size. 3. Left lateral malleolus stage 2 decub - healed 4. S/P BKA - stump incision is healing well 5. HTN - mostly controlled. will continue to monitor for the next few days since he was just started on the Metoprolol last night. Goal is less than 135/80 consistently 6. DM II - well controlled 7. anemia - stable 8. dehydration - continue the IV fluids and recheck the lab in the AM 9. Hypomagnesemia - continue to supplement and recheck in the AM Pt reminded to increase fluid intake Lab in the AM Schedule pain medication at bedtime and in the AM...has not been asking for it and then later c/o pain. Continue therapy Inpatient E&M: 69222 [facility] Hosp L2
[2019-09-24 09:04] VITALS: BP 152/75; PULSE 82; RESP 16; TEMP 36.7; O2SAT 97
[2019-09-24] MEDS: Menthol/Lanolin/Calamine/Znox 113 GM Tube 1 APPLIC TOPICAL ×2 (09:33→20:29)
--- NOTE | 2019-09-24 11:01 | PCM.PN.ID ---
Patient Problems: Active and Suspected Problems (Last Reviewed 09/12/19 @ 08:[address] Kyara King DO) Malnutrition (Acute) Hypothyroidism (Acute) Hyperlipidemia (Acute) H/O endarterectomy (Acute) R femoral on 09/02/19 Acute blood loss anemia (Acute) Decubitus ulcer, stage II (Acute) lateral malleolus Subjective: Feeling fine, no fever, no n/v/d. - Physical Exam Vitals/I&O's: Vital Signs Temp Pulse Resp BP Pulse Ox 98.0 F 82 16 152/75 H 97 09/24/19 09:04 09/24/19 09:04 09/24/19 09:04 09/24/19 09:04 09/24/19 09:04 Oxygen Flow Rate (L/min) 96 Oxygen Delivery Method Room Air Weight: 87.2 kg Body Mass Index (BMI) 26.9 Intake and Output for Last 24 Hours 09/22/19 09/23/19 09/24/19 23:59 23:59 23:59 Intake Total 2540 / 2540 1220 / 1220 2480 / 2480 Output Total 3100 / 3100 1100 / 1100 1100 / 1100 Balance -560 / -560 120 / 120 1380 / 1380 General: Alert, Cooperative, No apparent distress Lungs: Clear to auscultation, Normal air movement Cardiovascular: Regular rate, Regular Rhythm Abdomen: Soft, Non Tender, Non-Distended Skin: Ulcer/ Wound - d/w nursing, wound improved. Dressing dry. Laboratory Results 09/23/19 10:56: POC Glucose 379 H 09/23/19 10:58: POC Glucose 347 H 09/23/19 11:56: POC Glucose 286 H 09/23/19 16:28: POC Glucose 111 H 09/23/19 20:44: POC Glucose 128 H 09/24/19 05:55: POC Glucose 165 H 09/24/19 06:27: Phosphorus 4.0 Current Medications Acetaminophen (Tylenol) 1,000 mg PO Q8 [facility] Last Admin: 09/24/19 05:56 Dose: 1,000 mg Documented by: Ascorbic Acid (Vitamin C) 500 mg PO BIDCM [facility] Last Admin: 09/24/19 07:39 Dose: 500 mg Documented by: Aspirin (Ecotrin) 81 mg PO DAILY@0800 [facility] Last Admin: 09/24/19 07:39 Dose: 81 mg Documented by: Atorvastatin Calcium (Lipitor) 40 mg PO QHS [facility] Last Admin: 09/23/19 20:15 Dose: 40 mg Documented by: Bisacodyl (Dulcolax) 10 mg RECTAL .PRN X 1 PRN PRN Reason: Constipation Calamine/Phenol (Calmoseptine Ointment) 1 applic TOPICAL BID [facility]; Protocol Last Admin: 09/24/19 09:33 Dose: 1 applicatio Documented by: Capsaicin (Zostrix) 1 applic TOPICAL BID [facility]; Protocol Last Admin: 09/24/19 07:38 Dose: 1 applicatio Documented by: Dextrose (D50w Syringe) 0 gm IV X1 PRN; Protocol PRN Reason: Hypoglycemia Enoxaparin Sodium (Lovenox) 40 mg SC DAILY@0600 [facility] Last Admin: 09/24/19 05:55 Dose: 40 mg Documented by: Ergocalciferol (Vitamin D) 50,000 unit PO Fr@1000 [facility] Last Admin: 09/20/19 09:13 Dose: 50,000 unit Documented by: Famotidine (Pepcid) 20 mg PO BID [facility] Last Admin: 09/24/19 07:39 Dose: 20 mg Documented by: Gabapentin (Neurontin) 200 mg PO BID@0600,1400 [facility] Last Admin: 09/24/19 05:55 Dose: 200 mg Documented by: Gabapentin (Neurontin) 600 mg PO DAILY@2000 [facility] Last Admin: 09/23/19 19:59 Dose: 600 mg Documented by: Glucagon () 1 mg IM .X1 PRN PRN Reason: Hypoglycemia Sodium Chloride () 1,000 mls @ 100 mls/hr IV .Q10H [facility] Last Infusion: 09/24/19 10:59 Dose: Infused Documented by: Insulin Glargine (Lantus (Bkc)) 25 units SC QHS [facility] Insulin Human Lispro (Humalog Kwikpen (Bkc)) 0 unit SC TIDAC [facility]; Protocol Last Admin: 09/24/19 07:40 Dose: 3 u Documented by: Insulin Human Lispro (Humalog Kwikpen (Bkc)) 11 unit SC BREAKFAST [facility] Last Admin: 09/24/19 07:40 Dose: 11 u Documented by: Insulin Human Lispro (Humalog Kwikpen (Bkc)) 13 unit SC LUNCH [facility] Last Admin: 09/23/19 12:00 Dose: 13 u Documented by: Insulin Human Lispro (Humalog Kwikpen (Bkc)) 18 unit SC [facility] Last Admin: 09/23/19 17:54 Dose: 18 u Documented by: Levothyroxine Sodium (Synthroid) 25 mcg PO DAILY@0600 [facility] Last Admin: 09/24/19 05:56 Dose: 25 mcg Documented by: Lisinopril (Zestril) 20 mg PO DAILY [facility] Last Admin: 09/24/19 07:39 Dose: 20 mg Documented by: Magnesium Hydroxide (Milk Of Magnesia) 30 ml PO .PRN X 1 PRN PRN Reason: Constipation Last Admin: 09/20/19 21:11 Dose: 30 ml Documented by: [facility] ([facility] 400) [facility] Last Admin: 09/24/19 07:39 Dose: 400 mg Documented by: Metformin HCl (Glucophage) [facility] Last Admin: 09/24/19 07:39 Dose: 1,000 mg Documented by: Metoprolol Succinate (Toprol Xl (Beta Leander)) 12.5 mg PO QHS [facility] Last Admin: 09/23/19 20:13 Dose: 12.5 mg Documented by: Multivitamins (Multivitamin) [facility] Last Admin: 09/24/19 07:39 Dose: 1 tablet Documented by: Nutritional Formula (Thong - [place] Flavor) [facility] Last Admin: 09/24/19 07:39 Dose: 1 packet Documented by: Oxycodone HCl (Oxyir) 5 - 10 mg PO Q4H PRN PRN PRN Reason: Pain Score 1-10/10 Last Admin: 09/23/19 17:59 Dose: 10 mg Documented by: Polyethylene Glycol (Miralax) 17 gm PO DAILY [facility] Last Admin: 09/24/19 07:38 Dose: 17 gm Documented by: Senna/Docusate Sodium (Senokot-S, Teresita-Colace) 2 tablet PO BID [facility] Last Admin: 09/24/19 07:39 Dose: 2 tablet Documented by: Sodium Chloride () 10 - 40 ml IV UD PRN PRN Reason: SALINE FLUSH Last Admin: 09/23/19 10:45 Dose: 10 ml Documented by: Zinc Sulfate (Zinc Sulfate) 220 mg PO DAILY [facility] Last Admin: 09/24/19 07:39 Dose: 220 mg Documented by: Medical Necessity - Tobacco Use Smoking Status: Former smoker - quit in the Tobacco Use: Non-smoker Route of nutrition/ use of supplements: [] Nutritional Intake: [] IV Site: [] Diamond Catheter: [] - Assessment/Plan Antibiotics: [] Assessment/Plan: [] Active and Suspected Problems (Last Reviewed 09/12/19 @ 08:[address] Kyara King DO) Malnutrition (Acute) Hypothyroidism (Acute) Hyperlipidemia (Acute) H/O endarterectomy (Acute) R femoral on 09/02/19 Acute blood loss anemia (Acute) Decubitus ulcer, stage II (Acute) lateral malleolus Suspected R groin superficial cellulitis of incision - u/s showed 2 small collections. Mild rise in wbc since admission here, he is feeling great, wound improved. No fever. Completes abx today. Will follow as needed, please call with any questions.
--- NOTE | 2019-09-24 11:48 | CASEMGMT ---
Social Work Spoke with patient's dtr that [facility] accepted pt. Dtr provided Medicaid application - faxed to [facility]. Dtr spoke with pt and he would prefer not to go to [facility]. Dtr requested referrals to [facility]. Referral made. Will continue to follow. SEAMUS OrtegaW
[2019-09-24] MEDS: Insulin Lispro 100 UNIT/ML INSULN.PEN 13 UNIT SC (12:08)
[2019-09-24 12:16] LABS: Bedside Glucose 156 mg/dL (70-110)
[2019-09-24] MEDS: oxyCODONE 5 MG Tablet PO (12:45)
--- NOTE | 2019-09-24 15:27 | PCM.PROGNOTE ---
Patient Problems: Active and Suspected Problems (Last Reviewed 09/12/19 @ 08:[address] Kyara King, DO) Malnutrition (Acute) Hypothyroidism (Acute) Hyperlipidemia (Acute) H/O endarterectomy (Acute) R femoral on 09/02/19 Acute blood loss anemia (Acute) Decubitus ulcer, stage II (Acute) lateral malleolus Subjective: This 79-year-old male with significant past medical history of diabetes and peripheral vascular disease with previous right lower extremity amputation was seen bedside this afternoon for pre-ulcerative left heel. He keeps it padded and wears an offloading specialized boot. He denies pain at this time. - Physical Exam Vitals/I&O's: Vital Signs Temp Pulse Resp BP Pulse Ox 98.0 F 82 16 152/75 H 97 09/24/19 09:04 09/24/19 09:04 09/24/19 09:04 09/24/19 09:04 09/24/19 09:04 Oxygen Flow Rate (L/min) 96 Oxygen Delivery Method Room Air Weight: 87.2 kg Body Mass Index (BMI) 26.9 Intake and Output for Last 24 Hours 09/22/19 09/23/19 09/24/19 23:59 23:59 23:59 Intake Total 2540 / 2540 1220 / 1220 2720 / 2720 Output Total 3100 / 3100 1100 / 1100 1950 / 1950 Balance -560 / -560 120 / 120 770 / 770 General: Alert, Oriented x3, Cooperative Extremities: No cyanosis, Capillary Refill Less than 3 Seconds - All digits left foot, No Calf Tenderness - Negative Joao and Vallejo sign left, Diminished Peripheral Pulses, Edema, - - Right below-knee amputation Skin: - - Non-blanchable skin to posterior plantar left heel without skin discontinuity, blister, infection, bogginess, or fluctuance Musculoskeletal: No Tenderness to Palpation of Joints or Extremities, Muscle Wasting Neurological: Sensory exam intact to light touch and pain Psych/Mental Status: Normal Affect, Appropriate Laboratory Results 09/23/19 16:28: POC Glucose 111 H 09/23/19 20:44: POC Glucose 128 H 09/24/19 05:55: POC Glucose 165 H 09/24/19 06:27: Phosphorus 4.0 09/24/19 12:07: POC Glucose 156 H Current Medications Acetaminophen (Tylenol) 1,000 mg PO Q8 [facility] Last Admin: 09/24/19 14:22 Dose: 1,000 mg Documented by: Ascorbic Acid (Vitamin C) 500 mg PO BIDCM [facility] Last Admin: 09/24/19 07:39 Dose: 500 mg Documented by: Aspirin (Ecotrin) 81 mg PO DAILY@0800 [facility] Last Admin: 09/24/19 07:39 Dose: 81 mg Documented by: Atorvastatin Calcium (Lipitor) 40 mg PO QHS [facility] Last Admin: 09/23/19 20:15 Dose: 40 mg Documented by: Bisacodyl (Dulcolax) 10 mg RECTAL .PRN X 1 PRN PRN Reason: Constipation Calamine/Phenol (Calmoseptine Ointment) 1 applic TOPICAL BID [facility]; Protocol Last Admin: 09/24/19 09:33 Dose: 1 applicatio Documented by: Capsaicin (Zostrix) 1 applic TOPICAL BID [facility]; Protocol Last Admin: 09/24/19 07:38 Dose: 1 applicatio Documented by: Dextrose (D50w Syringe) 0 gm IV X1 PRN; Protocol PRN Reason: Hypoglycemia Enoxaparin Sodium (Lovenox) 40 mg SC DAILY@0600 [facility] Last Admin: 09/24/19 05:55 Dose: 40 mg Documented by: Ergocalciferol (Vitamin D) 50,000 unit PO Fr@1000 [facility] Last Admin: 09/20/19 09:13 Dose: 50,000 unit Documented by: Famotidine (Pepcid) 20 mg PO BID [facility] Last Admin: 09/24/19 07:39 Dose: 20 mg Documented by: Gabapentin (Neurontin) 200 mg PO BID@0600,1400 [facility] Last Admin: 09/24/19 14:22 Dose: 200 mg Documented by: Gabapentin (Neurontin) 600 mg PO DAILY@2000 [facility] Last Admin: 09/23/19 19:59 Dose: 600 mg Documented by: Glucagon () 1 mg IM .X1 PRN PRN Reason: Hypoglycemia Sodium Chloride () 1,000 mls @ 100 mls/hr IV .Q10H [facility] Last Admin: 09/24/19 12:47 Dose: 100 mls/hr Documented by: Insulin Glargine (Lantus (Bkc)) 25 units SC QHS [facility] Insulin Human Lispro (Humalog Kwikpen (Bkc)) 0 unit SC TIDAC [facility]; Protocol Last Admin: 09/24/19 12:08 Dose: 3 u Documented by: Insulin Human Lispro (Humalog Kwikpen (Bk)) 11 unit SC BREAKFAST [facility] Last Admin: 09/24/19 07:40 Dose: 11 u Documented by: Insulin Human Lispro (Humalog Kwikpen (Bk)) 13 unit SC LUNCH [facility] Last Admin: 09/24/19 12:08 Dose: 13 u Documented by: Insulin Human Lispro (Humalog Kwikpen (Bk)) 18 unit SC DINNER [facility] Last Admin: 09/23/19 17:54 Dose: 18 u Documented by: Levothyroxine Sodium (Synthroid) 25 mcg PO DAILY@0600 [facility] Last Admin: 09/24/19 05:56 Dose: 25 mcg Documented by: Lisinopril (Zestril) 20 mg PO DAILY [facility] Last Admin: 09/24/19 07:39 Dose: 20 mg Documented by: Magnesium Hydroxide (Milk Of Magnesia) 30 ml PO .PRN X 1 PRN PRN Reason: Constipation Last Admin: 09/20/19 21:11 Dose: 30 ml Documented by: Magnesium Ox[facility] (Mag[facility]Ox 400) [facility] Last Admin: 09/24/19 07:39 Dose: 400 mg Documented by: Metformin HCl (Glucophage) [facility] Last Admin: 09/24/19 07:39 Dose: 1,000 mg Documented by: Metoprolol Succinate (Toprol Xl (Beta Leander)) 12.5 mg PO QHS [facility] Last Admin: 09/23/19 20:13 Dose: 12.5 mg Documented by: Multivitamins (Multivitamin) [facility] Last Admin: 09/24/19 07:39 Dose: 1 tablet Documented by: Nutritional Formula (Thong - [place] Flavor) [facility] Last Admin: 09/24/19 07:39 Dose: 1 packet Documented by: Oxycodone HCl (Oxyir) 5 - 10 mg PO Q4H PRN PRN PRN Reason: Pain Score 1-10/10 Last Admin: 09/24/19 12:45 Dose: 10 mg Documented by: Oxycodone HCl (Oxyir) 10 mg PO 0800,2200 [facility] Polyethylene Glycol (Miralax) 17 gm PO DAILY [facility] Last Admin: 09/24/19 07:38 Dose: 17 gm Documented by: Senna/Docusate Sodium (Senokot-S, Teresita-Colace) 2 tablet PO BID [facility] Last Admin: 09/24/19 07:39 Dose: 2 tablet Documented by: Sodium Chloride () 10 - 40 ml IV UD PRN PRN Reason: SALINE FLUSH Last Admin: 09/23/19 10:45 Dose: 10 ml Documented by: Zinc Sulfate (Zinc Sulfate) 220 mg PO DAILY [facility] Last Admin: 09/24/19 07:39 Dose: 220 mg Documented by: Medical Necessity - Tobacco Use Smoking Status: Former smoker - quit in the Tobacco Use: Non-smoker Assessment/Plan All Active Problems (Last Reviewed 09/12/19 @ 08:[address] Kyara King, DO) Malnutrition (Acute) Hypothyroidism (Acute) Hyperlipidemia (Acute) H/O endarterectomy (Acute) Acute blood loss anemia (Acute) Decubitus ulcer, stage II (Acute) Posterior heel pressure ulcer - unstageable Peripheral arterial disease lower extremity Diabetes I reviewed this patient's case including a chart review. He was reassured no ulcer or infection is noted to the left lower extremity. He understands he is at continued risk for limb loss. He was advised to maintain strict offloading status with his offloading boot that he has in place. It is also noted that he has this heel padded with a abdominal pad and Kerlix and this is okay to continue fracture protection. Podiatry will continue to follow weekly to check progress on heel pressure site. Please not hesitate to call if you have any questions. Ada Peng DPM, [facility] [phone]
[2019-09-24] MEDS: Insulin Lispro 100 UNIT/ML INSULN.PEN 18 UNIT SC (17:08)
[2019-09-24 17:30] LABS: Bedside Glucose 155 mg/dL (70-110)
[2019-09-24] MEDS: Gabapentin 600 MG Tablet PO (20:14)
[2019-09-24 20:23] VITALS: BP 127/69; PULSE 97; RESP 16; TEMP 36.8; O2SAT 97
--- NOTE | 2019-09-24 20:23 | NURSING ---
PER PT REQUEST FOR EARLY MEDS TO ENABLE EARLY BEDTIME
[2019-09-24 20:25] VITALS: BP 122/69; PULSE 97
[2019-09-24] MEDS: Atorvastatin Calcium 40 MG Tablet PO (20:25)
[2019-09-24] MEDS: Metoprolol(XL)Succ 25 MG Tablet 12.5 MG PO (20:25)
--- NOTE | 2019-09-24 20:45 | NURSING ---
Hospitalist, Dr Lopes paged re: pt BS level and Lantus adjustment for hs. BS is 91 and RN wanted verification of Lantus 25u admin. Previous night Lantus was 22u and Dr Castilloti adjustment of Lantus to increase to 25u this hs. Dr Lopes confirmed administration of Lantus 25u and continue to monitor for low blood sugar signs.
[2019-09-24 20:46] LABS: Bedside Glucose 91 mg/dL (70-110)
[2019-09-24] MEDS: oxyCODONE 5 MG Tablet 10 MG PO (21:48)
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
[2019-09-25] MEDS: Levothyroxine 25 MCG TABLET PO (05:24)
[2019-09-25] MEDS: Enoxaparin 40 MG/0.4 ML Syringe SC (05:24)
[2019-09-25] MEDS: Gabapentin 100 MG Capsule 200 MG PO ×2 (05:24→13:53)
[2019-09-25] MEDS: Acetaminophen 500 MG Tablet 1000 MG PO ×3 (05:24→20:46)
[2019-09-25 06:55] LABS: Bedside Glucose 135 mg/dL (70-110)
[2019-09-25 06:56] LABS: Anion Gap 5 (5-15); BUN 37 mg/dL (7-18); BUN/Creat Ratio 51.3 RATIO (10-20); Calcium,Total 9.1 mg/dL (8.5-10.1); Chloride 107 mmol/L (98-107); Creatinine, Serum 0.72 mg/dL (0.70-1.30); EST Glomerular Filtration Rate 112 mL/min (>60); Est Glom Filt Rate - Afr Amer 136 mL/min (>60); Estimated Creatinine Clearance 62.86 ml/min; Glucose 139 mg/dL (74-106); Magnesium 1.5 mg/dL (1.6-2.6); Phosphorus 3.6 mg/dL (2.5-4.9); Potassium 4.4 mmol/L (3.5-5.1); Sodium Level 137 mmol/L (136-145)
[2019-09-25] MEDS: Lisinopril 20 MG Tablet PO (07:38)
[2019-09-25] MEDS: Ascorbic Acid 500 MG Tablet PO ×2 (07:38→16:50)
[2019-09-25] MEDS: Multivitamins,Therapeutic Tablet 1 TABLET PO (07:38)
[2019-09-25] MEDS: Famotidine 20 MG Tablet PO ×2 (07:38→20:46)
[2019-09-25] MEDS: metFORMIN HCl 1,000 MG Tablet 1000 MG PO ×2 (07:38→16:50)
[2019-09-25] MEDS: Aspirin E.C. 81 MG Tablet PO (07:38)
[2019-09-25] MEDS: Magnesium Oxide 400 MG Tablet PO ×2 (07:38→16:50)
[2019-09-25] MEDS: Insulin Lispro 100 UNIT/ML INSULN.PEN 11 UNIT SC (07:44)
[2019-09-25] MEDS: Menthol/Lanolin/Calamine/Znox 113 GM Tube 1 APPLIC TOPICAL ×2 (07:45→20:45)
[2019-09-25] MEDS: oxyCODONE 5 MG Tablet 10 MG PO ×2 (07:51→22:16)
[2019-09-25] MEDS: Capsaicin 0.025% 1 APPLIC Tube TOPICAL ×2 (07:52→20:47)
[2019-09-25 08:19] VITALS: BP 137/64; PULSE 71; RESP 16; TEMP 36.5; O2SAT 97
[2019-09-25] MEDS: 0.9% Normal Saline 1,000 ML 100 ML IV (09:05)
[2019-09-25 11:25] LABS: Bedside Glucose 173 mg/dL (70-110)
--- NOTE | 2019-09-25 12:01 | CASEMGMT ---
Social Work Followed-up with [facility] - they do not have bed availability and do not accept Medicaid pending. Spoke with pt's dtr. Dtr requested referral to [facility]. Referral made. [facility] verified [facility] network benefits. Will need a precert. Reviewing pt's clinical information. Notified dtr. Insurance approved pt with NRD 09/29. Will continue to follow. SEAUMS OrtegaW
[2019-09-25] MEDS: Insulin Lispro 100 UNIT/ML INSULN.PEN 13 UNIT SC (12:03)
[2019-09-25] MEDS: oxyCODONE 5 MG Tablet PO (12:03)
[2019-09-25] MEDS: Insulin Lispro 100 UNIT/ML INSULN.PEN SC ×2 (12:04→17:05)
--- NOTE | 2019-09-25 12:30 | PCM.PN.BLA ---
Progress Note Afebrile Blood pressure is well controlled. Maintaining appropriate oxygen saturation on room air. Fluid balance on 09/24/2019 was +1660. Overnight he was -525 but has already had 1180 and oral intake today. Blood sugar record was reviewed. Blood sugars are in good control. All laboratory was personally reviewed. Sodium is normal at 137. BUN is still 37 despite intravenous fluids for the past 48 hours. Creatinine is 0.72. Magnesium is still low at 1.5 despite IV supplementation and Mag-Ox 400 mg twice daily. Alert, oriented x3, pleasant, no apparent distress Lungs-clear to auscultation Heart-regular rate and rhythm Abdomen-soft, nontender, nondistended, bowel sounds present No edema of the left leg Impressions 1. Hypomagnesemia-persistent despite intravenous supplementation and Mag-Ox twice daily. This may be due to increased losses due to loose stools caused by the Mag-Ox. Intravenous magnesium also temporarily decreases magnesium absorption in the kidney. Since the patient is relatively asymptomatic we will continue with oral magnesium supplement. Will discuss with the pharmacist if any long-acting magnesium preparations are available to us rather than Mag-Ox which is short acting and more likely to cause diarrhea. We will check a urine magnesium and urine spot creatinine and calculate the fractional excretion of magnesium. 2. Elevated BUN/creatinine ratio. The patient is adequately hydrated. He is not tachycardic and he has moist mucous membranes today. There is no tenting of the skin. There was no change in the BUN with IV fluids. Hemoccult stool was negative. Creatinine clearance is good at greater than 60. I suspect the increased BUN/creatinine ratio is due to decreased muscle mass which decreases the creatinine out of proportion to the BUN. Will discontinue IV fluids. 3. Diabetes mellitus type [id number] 4. Hypertension-controlled Inpatient E&M: 49681 Subs Hosp L2
[2019-09-25 17:00] LABS: Bedside Glucose 173 mg/dL (70-110)
[2019-09-25] MEDS: Insulin Lispro 100 UNIT/ML INSULN.PEN 18 UNIT SC (17:05)
[2019-09-25 18:14] VITALS: BP 127/66; PULSE 83; RESP 18; TEMP 36.3; O2SAT 95
[2019-09-25] MEDS: Gabapentin 600 MG Tablet PO (20:45)
[2019-09-25] MEDS: Atorvastatin Calcium 40 MG Tablet PO (20:45)
[2019-09-25 20:46] VITALS: PULSE 74
[2019-09-25] MEDS: Metoprolol(XL)Succ 25 MG Tablet 12.5 MG PO (20:46)
[2019-09-25] MEDS: 0.9% Saline Lock 10 ML Syringe IV (20:54)
[2019-09-25 21:01] LABS: Bedside Glucose 111 mg/dL (70-110)
[2019-09-26] MEDS: Enoxaparin 40 MG/0.4 ML Syringe SC (06:16)
[2019-09-26] MEDS: Gabapentin 100 MG Capsule 200 MG PO ×2 (06:16→13:54)
[2019-09-26] MEDS: Levothyroxine 25 MCG TABLET PO (06:17)
[2019-09-26] MEDS: Acetaminophen 500 MG Tablet 1000 MG PO ×3 (06:17→20:45)
[2019-09-26 06:45] LABS: Bedside Glucose 134 mg/dL (70-110)
[2019-09-26] MEDS: Capsaicin 0.025% 1 APPLIC Tube TOPICAL ×2 (08:23→20:46)
[2019-09-26] MEDS: Ascorbic Acid 500 MG Tablet PO ×2 (08:30→16:56)
[2019-09-26] MEDS: Lisinopril 20 MG Tablet PO (08:30)
[2019-09-26] MEDS: Polyethylene Glycol 3350 17 GM PACKET PO (08:30)
[2019-09-26] MEDS: Multivitamins,Therapeutic Tablet 1 TABLET PO (08:30)
[2019-09-26] MEDS: Magnesium Oxide 400 MG Tablet PO ×2 (08:31→16:56)
[2019-09-26] MEDS: metFORMIN HCl 1,000 MG Tablet 1000 MG PO ×2 (08:31→16:56)
[2019-09-26] MEDS: Insulin Lispro 100 UNIT/ML INSULN.PEN 11 UNIT SC (08:31)
[2019-09-26] MEDS: Aspirin E.C. 81 MG Tablet PO (08:31)
[2019-09-26] MEDS: Famotidine 20 MG Tablet PO ×2 (08:31→20:44)
[2019-09-26] MEDS: oxyCODONE 5 MG Tablet 10 MG PO ×2 (08:37→21:52)
[2019-09-26] MEDS: Menthol/Lanolin/Calamine/Znox 113 GM Tube 1 APPLIC TOPICAL ×2 (08:38→20:43)
--- NOTE | 2019-09-26 08:49 | PN_ITS ---
Progress Note Afebile VSS-blood pressure is well controlled Maintaining appropriate oxygen saturation on RA Oral intake is good Good bowel function. Last bowel movement was 09/25/2019. Discussed with nursing -he is complaining of sore throat and shortness of breath today. Reviewed the PT/OT notes Medication list reviewed. Blood sugar record was reviewed and blood sugars are under excellent control. Urine magnesium is pending. Will calculate the fractional excretion of magnesium when the lab is available. He is complaining of a sore throat today. He also has cough and the cough increases when he lies down. He denies chest pain or shortness of breath. Denies muscle aches or pains. No nausea/vomiting/abdominal pain. He has been afebrile since admission. He has a clear rhinorrhea. Alert, oriented x3, lying flat in bed with no shortness of breath, mucous membranes are moist The posterior pharynx is injected with no exudate. There is clear postnasal drainage noted in the posterior pharynx while he is lying down. No cervical adenopathy Lungs-clear to auscultation No nuchal rigidity Heart-regular rate and rhythm The right groin incision is without erythema or discharge. It continues to heal. The stump is starting to shrink and there is some wrinkling of the skin. The incision is intact with no lenin-incisional erythema or discharge. The left heel decubitus is continuing to shrink and there is no opening in the skin. The deep purple discoloration is now a coral color. Impressions 1. URI vs allergic rhinitis - start Atrovent nasal spray......continue to monitor, if any temp will get a CXR 2. unstageable decubitus ulcer of the left heel - healing. will continue the off loading device 3. DM II - very well controlled 4. diabetic nephropathy with a stable Creat 5. PVD 6. hypomagnesemia - loose stool is somewhat better with discontinuing the stool softeners. Awaiting the results of the urine magnesium. 7. Normochromic normocytic anemia-hemoglobin has been steadily improving. Our only option for oral mag replacement at [facility] is Mag ox which is short acting. Will discuss with the pharm director possibly getting slow release mag on the formulary. Recheck a CBC and BMP and mag on Monday. Inpatient E&M: 40122 Subs Hosp L2
[2019-09-26 09:18] VITALS: BP 145/76; PULSE 78; RESP 16; TEMP 36.6; O2SAT 97
--- NOTE | 2019-09-26 11:28 | CASEMGMT ---
Social Work Ruth Ratliff has accepted the patient. Notified pt and dtr. NRD 09/29. Will continue to follow. Carly Kramer, SPRAY BLENDER PACKAGE WRAPPER
[2019-09-26 11:50] LABS: Bedside Glucose 114 mg/dL (70-110)
[2019-09-26] MEDS: Insulin Lispro 100 UNIT/ML INSULN.PEN 13 UNIT SC (12:08)
[2019-09-26] MEDS: Ipratropium Bromide 0.06% NASAL SPRAY 2 SPRAY NASAL ×2 (15:32→20:42)
[2019-09-26] MEDS: BENZOCAINE/MENTHOL 1 LOZENGE MUCOUS MEM (15:33)
[2019-09-26] MEDS: Insulin Lispro 100 UNIT/ML INSULN.PEN 18 UNIT SC (16:56)
[2019-09-26] MEDS: Insulin Lispro 100 UNIT/ML INSULN.PEN SC (16:57)
[2019-09-26 17:20] LABS: Bedside Glucose 187 mg/dL (70-110)
[2019-09-26 20:06] VITALS: BP 119/60; PULSE 87; RESP 16; TEMP 37.1; O2SAT 96
[2019-09-26] MEDS: Gabapentin 600 MG Tablet PO (20:42)
[2019-09-26] MEDS: Atorvastatin Calcium 40 MG Tablet PO (20:43)
[2019-09-26 20:44] VITALS: PULSE 88
[2019-09-26] MEDS: Metoprolol(XL)Succ 25 MG Tablet 12.5 MG PO (20:44)
[2019-09-26] MEDS: 0.9% Saline Lock 10 ML Syringe IV (20:48)
[2019-09-26 22:00] LABS: Bedside Glucose 129 mg/dL (70-110)
[2019-09-27] MEDS: Enoxaparin 40 MG/0.4 ML Syringe SC (06:11)
[2019-09-27] MEDS: Ipratropium Bromide 0.06% NASAL SPRAY 2 SPRAY NASAL ×3 (06:11→22:03)
[2019-09-27] MEDS: Gabapentin 100 MG Capsule 200 MG PO ×2 (06:11→14:15)
[2019-09-27] MEDS: Levothyroxine 25 MCG TABLET PO (06:11)
[2019-09-27] MEDS: Acetaminophen 500 MG Tablet 1000 MG PO ×3 (06:12→22:05)
[2019-09-27 06:56] LABS: Bedside Glucose 134 mg/dL (70-110)
[2019-09-27] MEDS: Capsaicin 0.025% 1 APPLIC Tube TOPICAL ×2 (07:48→22:05)
[2019-09-27] MEDS: Insulin Lispro 100 UNIT/ML INSULN.PEN 11 UNIT SC (07:48)
[2019-09-27] MEDS: Famotidine 20 MG Tablet PO ×2 (07:49→22:05)
[2019-09-27] MEDS: oxyCODONE 5 MG Tablet 10 MG PO ×2 (07:49→22:03)
[2019-09-27] MEDS: Ascorbic Acid 500 MG Tablet PO ×2 (07:49→17:13)
[2019-09-27] MEDS: Aspirin E.C. 81 MG Tablet PO (07:49)
[2019-09-27] MEDS: Magnesium Oxide 400 MG Tablet PO ×2 (07:49→17:13)
[2019-09-27] MEDS: metFORMIN HCl 1,000 MG Tablet 1000 MG PO ×2 (07:49→17:12)
[2019-09-27] MEDS: Multivitamins,Therapeutic Tablet 1 TABLET PO (07:49)
[2019-09-27] MEDS: Menthol/Lanolin/Calamine/Znox 113 GM Tube 1 APPLIC TOPICAL ×2 (07:50→22:03)
[2019-09-27] MEDS: Lisinopril 20 MG Tablet PO (07:51)
[2019-09-27 08:05] VITALS: BP 127/61; PULSE 84; RESP 16; TEMP 36.9; O2SAT 96
[2019-09-27 11:50] LABS: Bedside Glucose 126 mg/dL (70-110)
[2019-09-27] MEDS: Insulin Lispro 100 UNIT/ML INSULN.PEN 13 UNIT SC (12:06)
--- NOTE | 2019-09-27 12:55 | PCM.PN.BLA ---
Progress Note Remains afebrile He states he is feeling much better today. The Atrovent nasal spray has significantly improved his cough, especially when lying down. The sore throat is mostly gone and he has only had to take 1 Cepacol lozenge or. Lungs-clear to auscultation Pharynx-no posterior exudates No cervical adenopathy Heart-regular rate and rhythm Impressions 1. URI versus allergic rhinitis-continue Atrovent nasal spray and PRN Cepacol lozenges. Repeat lab on Monday Inpatient E&M: 58687 Subs Hosp L1
[2019-09-27] MEDS: Insulin Lispro 100 UNIT/ML INSULN.PEN SC (17:12)
[2019-09-27] MEDS: Insulin Lispro 100 UNIT/ML INSULN.PEN 18 UNIT SC (17:12)
[2019-09-27 17:36] LABS: Bedside Glucose 207 mg/dL (70-110)
[2019-09-27 20:02] VITALS: BP 126/71; PULSE 97; RESP 18; TEMP 37.1; O2SAT 96
[2019-09-27 21:36] LABS: Bedside Glucose 171 mg/dL (70-110)
[2019-09-27 22:02] VITALS: BP 126/71; PULSE 97
[2019-09-27] MEDS: Gabapentin 600 MG Tablet PO (22:02)
[2019-09-27] MEDS: Metoprolol(XL)Succ 25 MG Tablet 12.5 MG PO (22:02)
[2019-09-27] MEDS: Atorvastatin Calcium 40 MG Tablet PO (22:04)
[2019-09-28 06:15] LABS: Bedside Glucose 165 mg/dL (70-110)
[2019-09-28] MEDS: Acetaminophen 500 MG Tablet 1000 MG PO ×3 (06:25→21:28)
[2019-09-28] MEDS: Levothyroxine 25 MCG TABLET PO (06:25)
[2019-09-28] MEDS: Gabapentin 100 MG Capsule 200 MG PO ×2 (06:25→13:29)
[2019-09-28] MEDS: Enoxaparin 40 MG/0.4 ML Syringe SC (06:26)
[2019-09-28] MEDS: Ipratropium Bromide 0.06% NASAL SPRAY 2 SPRAY NASAL ×3 (06:26→20:02)
[2019-09-28] MEDS: Insulin Lispro 100 UNIT/ML INSULN.PEN SC (08:13)
[2019-09-28 08:14] VITALS: BP 132/67; PULSE 81; RESP 16; TEMP 36.8; O2SAT 94
[2019-09-28] MEDS: Insulin Lispro 100 UNIT/ML INSULN.PEN 11 UNIT SC (08:14)
[2019-09-28] MEDS: metFORMIN HCl 1,000 MG Tablet 1000 MG PO ×2 (08:15→17:22)
[2019-09-28] MEDS: Magnesium Oxide 400 MG Tablet PO ×2 (08:15→17:22)
[2019-09-28] MEDS: Lisinopril 20 MG Tablet PO (08:15)
[2019-09-28] MEDS: Famotidine 20 MG Tablet PO ×2 (08:15→20:03)
[2019-09-28] MEDS: Multivitamins,Therapeutic Tablet 1 TABLET PO (08:16)
[2019-09-28] MEDS: Aspirin E.C. 81 MG Tablet PO (08:21)
[2019-09-28] MEDS: Ascorbic Acid 500 MG Tablet PO ×2 (08:21→17:22)
[2019-09-28] MEDS: Menthol/Lanolin/Calamine/Znox 113 GM Tube 1 APPLIC TOPICAL ×2 (08:24→20:02)
[2019-09-28] MEDS: Capsaicin 0.025% 1 APPLIC Tube TOPICAL ×2 (09:02→20:04)
[2019-09-28] MEDS: oxyCODONE 5 MG Tablet 10 MG PO ×2 (09:06→21:28)
[2019-09-28 11:40] LABS: Bedside Glucose 131 mg/dL (70-110)
[2019-09-28] MEDS: Insulin Lispro 100 UNIT/ML INSULN.PEN 13 UNIT SC (11:48)
[2019-09-28 17:26] LABS: Bedside Glucose 144 mg/dL (70-110)
[2019-09-28] MEDS: Insulin Lispro 100 UNIT/ML INSULN.PEN 18 UNIT SC (17:31)
[2019-09-28 18:44] VITALS: BP 128/62; PULSE 83; RESP 16; TEMP 36.4; O2SAT 98
[2019-09-28] MEDS: Gabapentin 600 MG Tablet PO (19:54)
--- NOTE | 2019-09-28 19:56 | NURSING ---
per pt request for early meds and enable early bedtime due to fatigue.
[2019-09-28] MEDS: Atorvastatin Calcium 40 MG Tablet PO (20:02)
[2019-09-28 20:03] VITALS: PULSE 83
[2019-09-28] MEDS: Metoprolol(XL)Succ 25 MG Tablet 12.5 MG PO (20:03)
[2019-09-28 21:06] LABS: Bedside Glucose 130 mg/dL (70-110)
[2019-09-29] MEDS: Gabapentin 100 MG Capsule 200 MG PO ×2 (06:07→14:47)
[2019-09-29] MEDS: Acetaminophen 500 MG Tablet 1000 MG PO ×3 (06:07→21:39)
[2019-09-29] MEDS: Levothyroxine 25 MCG TABLET PO (06:08)
[2019-09-29] MEDS: Enoxaparin 40 MG/0.4 ML Syringe SC (06:08)
[2019-09-29] MEDS: Ipratropium Bromide 0.06% NASAL SPRAY 2 SPRAY NASAL ×3 (06:08→21:36)
[2019-09-29] MEDS: BENZOCAINE/MENTHOL 1 LOZENGE MUCOUS MEM (06:09)
[2019-09-29 06:26] LABS: Bedside Glucose 135 mg/dL (70-110)
[2019-09-29 07:52] VITALS: BP 146/72; PULSE 85; RESP 16; TEMP 36.6; O2SAT 97
[2019-09-29] MEDS: Insulin Lispro 100 UNIT/ML INSULN.PEN 11 UNIT SC (08:08)
[2019-09-29] MEDS: oxyCODONE 5 MG Tablet 10 MG PO ×2 (09:13→21:36)
[2019-09-29] MEDS: metFORMIN HCl 1,000 MG Tablet 1000 MG PO ×2 (09:15→17:13)
[2019-09-29] MEDS: Lisinopril 20 MG Tablet PO (09:15)
[2019-09-29] MEDS: Magnesium Oxide 400 MG Tablet PO ×2 (09:15→17:14)
[2019-09-29] MEDS: Famotidine 20 MG Tablet PO ×2 (09:15→21:37)
[2019-09-29] MEDS: Multivitamins,Therapeutic Tablet 1 TABLET PO (09:16)
[2019-09-29] MEDS: Aspirin E.C. 81 MG Tablet PO (09:16)
[2019-09-29] MEDS: Ascorbic Acid 500 MG Tablet PO ×2 (09:16→17:14)
[2019-09-29] MEDS: Capsaicin 0.025% 1 APPLIC Tube TOPICAL ×2 (09:19→21:39)
[2019-09-29] MEDS: Menthol/Lanolin/Calamine/Znox 113 GM Tube 1 APPLIC TOPICAL ×2 (09:20→21:45)
[2019-09-29] MEDS: Insulin Lispro 100 UNIT/ML INSULN.PEN SC (11:47)
[2019-09-29] MEDS: Insulin Lispro 100 UNIT/ML INSULN.PEN 13 UNIT SC (11:47)
[2019-09-29 11:55] LABS: Bedside Glucose 194 mg/dL (70-110)
[2019-09-29] MEDS: Insulin Lispro 100 UNIT/ML INSULN.PEN 18 UNIT SC (17:26)
[2019-09-29 17:31] LABS: Bedside Glucose 104 mg/dL (70-110)
[2019-09-29 19:19] VITALS: BP 124/68; PULSE 90; RESP 16; TEMP 37.2; O2SAT 97
[2019-09-29] MEDS: Gabapentin 600 MG Tablet PO (20:33)
[2019-09-29 21:20] LABS: Bedside Glucose 165 mg/dL (70-110)
[2019-09-29 21:30] VITALS: TEMP 36.8
[2019-09-29] MEDS: Atorvastatin Calcium 40 MG Tablet PO (21:36)
[2019-09-29 21:37] VITALS: BP 124/68; PULSE 90
[2019-09-29] MEDS: Metoprolol(XL)Succ 25 MG Tablet 12.5 MG PO (21:37)
[2019-09-30] MEDS: Acetaminophen 500 MG Tablet 1000 MG PO ×3 (05:43→21:21)
[2019-09-30] MEDS: Levothyroxine 25 MCG TABLET PO (05:43)
[2019-09-30] MEDS: Enoxaparin 40 MG/0.4 ML Syringe SC (05:44)
[2019-09-30] MEDS: Gabapentin 100 MG Capsule 200 MG PO ×2 (05:44→12:48)
[2019-09-30] MEDS: Ipratropium Bromide 0.06% NASAL SPRAY 2 SPRAY NASAL ×3 (05:44→20:00)
[2019-09-30 06:12] LABS: Hematocrit 36.1 % (40-54); Hemoglobin 11.1 g/dL (13.0-16.5); Mean Corp Hgb Conc 30.7 g/dL (32-36); Mean Corpuscular Hgb 28.2 pg (27.0-32.0); Mean Corpuscular Volume 91.9 fL (80-94); Mean Platelet Vol. 9.6 fl (6.2-12.0); Platelet Count 388 K/mm3 (150-450); RBC Distribution Width CV 16.4 % (11.6-14.6); RBC Distribution Width SD 55.3 fl (35.1-43.9); Red Blood Count 3.93 M/mm3 (4.6-6.2); White Blood Count 9.2 K/mm3 (4.4-11.0)
[2019-09-30 06:24] LABS: Anion Gap 7 (5-15); BUN 48 mg/dL (7-18); BUN/Creat Ratio 55.5 RATIO (10-20); Calcium,Total 9.2 mg/dL (8.5-10.1); Chloride 107 mmol/L (98-107); Creatinine, Serum 0.86 mg/dL (0.70-1.30); EST Glomerular Filtration Rate 91 mL/min (>60); Est Glom Filt Rate - Afr Amer 110 mL/min (>60); Estimated Creatinine Clearance 73.09 ml/min; Glucose 143 mg/dL (74-106); Magnesium 1.5 mg/dL (1.6-2.6); Potassium 4.2 mmol/L (3.5-5.1); Sodium Level 140 mmol/L (136-145)
[2019-09-30 06:46] LABS: Bedside Glucose 148 mg/dL (70-110)
[2019-09-30] MEDS: Magnesium Oxide 400 MG Tablet PO ×3 (07:45→17:06)
[2019-09-30] MEDS: Ascorbic Acid 500 MG Tablet PO ×2 (07:45→17:06)
[2019-09-30] MEDS: Lisinopril 20 MG Tablet PO (07:45)
[2019-09-30] MEDS: Famotidine 20 MG Tablet PO ×2 (07:45→20:00)
[2019-09-30] MEDS: metFORMIN HCl 1,000 MG Tablet 1000 MG PO ×2 (07:45→17:06)
[2019-09-30] MEDS: Aspirin E.C. 81 MG Tablet PO (07:45)
[2019-09-30] MEDS: Multivitamins,Therapeutic Tablet 1 TABLET PO (07:45)
[2019-09-30] MEDS: Insulin Lispro 100 UNIT/ML INSULN.PEN 11 UNIT SC (07:48)
[2019-09-30] MEDS: Menthol/Lanolin/Calamine/Znox 113 GM Tube 1 APPLIC TOPICAL ×2 (07:49→20:00)
[2019-09-30] MEDS: oxyCODONE 5 MG Tablet 10 MG PO ×2 (08:04→21:21)
[2019-09-30 08:22] VITALS: BP 141/87; PULSE 87; RESP 17; TEMP 36.6; O2SAT 96
--- NOTE | 2019-09-30 08:38 | PN_ITS ---
Progress Note Seen on TEAM rounds today. Family members Nina and Becca participated in the conference call. Afebile VSS - AM BP is mildly increased (> 135/80) diastolic is controlled Maintaining appropriate oxygen saturation on RA Oral intake is good Averaging 1 bowel movement daily Discussed with nursing - no problems that need addressed Reviewed the PT/OT notes Medication list reviewed. Blood sugar record was reviewed. Blood sugars are adequately controlled. All lab was personally reviewed. The fractional excretion of magnesium is approximately 7.6% which indicates renal losses. The daily excretion of magnesium in the urine is 144.6 mg. Serum magnesium is still low at 1.5 and he is receiving 400 mg twice daily of Mag-Ox daily. BUN is 48 and creatinine is 0.86. Hemoglobin is gradually improving and it is 11.1 today, up from 8.8 on 09/12/2019. White blood cell count and platelets are within normal limits. He is c/o being sore from doing his exercises yesterday. Denies cough, sore throat, chest pain, shortness of breath, nausea, vomiting, abdominal pain. Lungs - CTA alert and appropriate H - RRR abd - soft, NT, ND R groin incision is dry, without incisional erythema, no DC, healing well...no sign infection and the induration is decreasing The stump incision is intact with no discharge, no. Incisional erythema and no increased warmth to touch. Left lateral malleolus has a very small scab and continues to contract. No erythema, no discharge, no increased warmth to touch, no pain. The unstageable decubitus ulcer on the left heel continues to contract. There is no opening in the skin. The color is now a coral color and not the deep purple. No redness, no discharge. Impressions 1. S/P BKA of the RLE 2. DM II - controlled 3. 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 Will increase the Mag ox to 400mg TID today and add Amiloride 5 mg daily. Consult the wire coiler 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 to see if there is a way to increase the mag in his diet. He has tremor and jerky movements...possibly due to hypomagnesemia 4. BUN out of proportion to CREAT is likely due to the large amount of pork rinds he is consuming---there is 9 GM of protein in 1 serving of poke rinds. All questions from Nina and Becca were answered by the appropriate staff member. Orders entered. Has been approved at [place] when he is ready for DC to SNF. Family want him to remain at our facility but, it was explained again that we have no control over how long they can stay in rehab....it is up to the insurance company. We can only provide updates. They were also told they can appeal to the insurance company if they do not agree with the DC date. STROKE Vital Signs/Narrative: Vital Signs Temp Pulse Resp BP Pulse Ox 09/30/19 08:22 97.9 F 87 17 141/87 H 96 Inpatient E&M: 31457 Subs Hosp L2
--- NOTE | 2019-09-30 09:41 | CASEMGMT ---
Social Work Met with pt and pt dtrs via conference call for team meeting. pt is SBA to min assist for transfers with sliding board-pt practicing transfers to do them independently, still needs cues. pt also working on range of motion on right LE, range of motion is -11. Pt is seated, set up, supervised for UE grooming and dressing and is mod assist for LE dressing and grooming. Pt is min to mod assist for toilet transfers and total assist for toileting. Pt is mod x2 to stand and can only stand for 20-30 seconds. Pt pressure injury on left heel and ankle healing and incision on groin and on right knee is healing with little to no drainage. Pt will have luly removed on 10/02. Pt not following dietary recommendations and is preferring not to go to nursing facility d/t virus concerns-informed dtrs the precautions nursing facilities have taken to ensure safety of residents. Explained insurance to pt and dtrs NRD 09/29, pt not safe to return home and still has fpc need. SW/SWI to call dtr about decision from insurance. Dtrs appreciative of mary ann call and care given by staff. Will continue to follow. Marilyn Franco, social work corporate communications intern Carly Kramer, SEAM FINISHER JUNIOR PROGRAMMER ANALYST
[2019-09-30] MEDS: Capsaicin 0.025% 1 APPLIC Tube TOPICAL ×2 (11:05→20:01)
[2019-09-30 11:46] LABS: Bedside Glucose 168 mg/dL (70-110)
[2019-09-30] MEDS: Insulin Lispro 100 UNIT/ML INSULN.PEN 13 UNIT SC (12:01)
[2019-09-30] MEDS: Insulin Lispro 100 UNIT/ML INSULN.PEN SC ×2 (12:01→17:08)
--- NOTE | 2019-09-30 15:07 | CASEMGMT ---
Social Work Spoke with JFJudson and pt received Medicaid Pending #[id number]. Daughter, Petra, has received the packet of information requested from [facility] and is beginning to gather those documents. Will await outcome from insurance. SEAMUS OrtegaW
[2019-09-30] MEDS: Insulin Lispro 100 UNIT/ML INSULN.PEN 18 UNIT SC (17:07)
[2019-09-30 18:01] LABS: Bedside Glucose 175 mg/dL (70-110)
[2019-09-30 19:30] VITALS: BP 133/72; PULSE 82; RESP 17; TEMP 36.8; O2SAT 94
[2019-09-30] MEDS: Gabapentin 600 MG Tablet PO (19:51)
[2019-09-30] MEDS: Atorvastatin Calcium 40 MG Tablet PO (20:00)
[2019-09-30 20:01] VITALS: PULSE 83
[2019-09-30] MEDS: Metoprolol(XL)Succ 25 MG Tablet PO (20:01)
[2019-09-30 22:21] LABS: Bedside Glucose 139 mg/dL (70-110)
[2019-10-01] MEDS: Enoxaparin 40 MG/0.4 ML Syringe SC (05:33)
[2019-10-01] MEDS: Levothyroxine 25 MCG TABLET PO (05:34)
[2019-10-01] MEDS: Gabapentin 100 MG Capsule 200 MG PO ×2 (05:34→13:52)
[2019-10-01] MEDS: Acetaminophen 500 MG Tablet 1000 MG PO ×3 (05:34→20:29)
[2019-10-01] MEDS: Ipratropium Bromide 0.06% NASAL SPRAY 2 SPRAY NASAL ×3 (05:34→20:28)
[2019-10-01 06:21] LABS: Bedside Glucose 194 mg/dL (70-110)
[2019-10-01] MEDS: Capsaicin 0.025% 1 APPLIC Tube TOPICAL ×2 (07:45→20:30)
[2019-10-01] MEDS: Ascorbic Acid 500 MG Tablet PO ×2 (07:47→16:36)
[2019-10-01] MEDS: Famotidine 20 MG Tablet PO ×2 (07:47→20:29)
[2019-10-01] MEDS: oxyCODONE 5 MG Tablet 10 MG PO ×2 (07:47→21:41)
[2019-10-01] MEDS: Magnesium Oxide 400 MG Tablet PO ×3 (07:48→16:36)
[2019-10-01] MEDS: Multivitamins,Therapeutic Tablet 1 TABLET PO (07:48)
[2019-10-01] MEDS: Lisinopril 20 MG Tablet PO (07:48)
[2019-10-01] MEDS: Aspirin E.C. 81 MG Tablet PO (07:48)
[2019-10-01] MEDS: metFORMIN HCl 1,000 MG Tablet 1000 MG PO ×2 (07:48→16:36)
[2019-10-01] MEDS: Insulin Lispro 100 UNIT/ML INSULN.PEN SC ×3 (07:50→16:37)
[2019-10-01] MEDS: Insulin Lispro 100 UNIT/ML INSULN.PEN 11 UNIT SC (07:51)
[2019-10-01] MEDS: Menthol/Lanolin/Calamine/Znox 113 GM Tube 1 APPLIC TOPICAL ×2 (07:55→20:28)
[2019-10-01 08:33] VITALS: BP 138/70; PULSE 76; RESP 16; TEMP 36.7; O2SAT 99
[2019-10-01] MEDS: AMILORIDE HCL 5 MG TABLET PO (09:25)
[2019-10-01] MEDS: Insulin Lispro 100 UNIT/ML INSULN.PEN 13 UNIT SC (11:48)
[2019-10-01 11:55] LABS: Bedside Glucose 189 mg/dL (70-110)
[2019-10-01] MEDS: Insulin Lispro 100 UNIT/ML INSULN.PEN 18 UNIT SC (16:37)
[2019-10-01 17:06] LABS: Bedside Glucose 161 mg/dL (70-110)
[2019-10-01 19:49] VITALS: BP 131/63; PULSE 90; RESP 18; TEMP 36.7; O2SAT 96
[2019-10-01] MEDS: Gabapentin 600 MG Tablet PO (20:28)
[2019-10-01] MEDS: Atorvastatin Calcium 40 MG Tablet PO (20:28)
[2019-10-01 20:29] VITALS: PULSE 86
[2019-10-01] MEDS: Metoprolol(XL)Succ 25 MG Tablet PO (20:29)
[2019-10-01 21:01] LABS: Bedside Glucose 175 mg/dL (70-110)
[2019-10-02] MEDS: Ipratropium Bromide 0.06% NASAL SPRAY 2 SPRAY NASAL ×3 (05:45→20:48)
[2019-10-02] MEDS: Enoxaparin 40 MG/0.4 ML Syringe SC (05:45)
[2019-10-02] MEDS: Levothyroxine 25 MCG TABLET PO (05:46)
[2019-10-02] MEDS: Gabapentin 100 MG Capsule 200 MG PO ×2 (05:46→12:59)
[2019-10-02] MEDS: Acetaminophen 500 MG Tablet 1000 MG PO ×3 (05:46→20:46)
[2019-10-02 06:35] LABS: Bedside Glucose 178 mg/dL (70-110)
[2019-10-02 08:00] VITALS: BP 145/70; PULSE 84; RESP 16; TEMP 37; O2SAT 98
[2019-10-02] MEDS: Insulin Lispro 100 UNIT/ML INSULN.PEN 11 UNIT SC (08:09)
[2019-10-02] MEDS: Insulin Lispro 100 UNIT/ML INSULN.PEN SC (08:09)
[2019-10-02] MEDS: AMILORIDE HCL 5 MG TABLET PO (08:15)
[2019-10-02] MEDS: Multivitamins,Therapeutic Tablet 1 TABLET PO (08:15)
[2019-10-02] MEDS: Magnesium Oxide 400 MG Tablet PO ×3 (08:15→16:57)
[2019-10-02] MEDS: Famotidine 20 MG Tablet PO ×2 (08:15→20:47)
[2019-10-02] MEDS: metFORMIN HCl 1,000 MG Tablet 1000 MG PO ×2 (08:15→16:57)
[2019-10-02] MEDS: Ascorbic Acid 500 MG Tablet PO ×2 (08:15→17:00)
[2019-10-02] MEDS: Aspirin E.C. 81 MG Tablet PO (08:15)
[2019-10-02] MEDS: Lisinopril 20 MG Tablet PO (08:16)
[2019-10-02] MEDS: Menthol/Lanolin/Calamine/Znox 113 GM Tube 1 APPLIC TOPICAL ×2 (08:17→20:47)
[2019-10-02] MEDS: Capsaicin 0.025% 1 APPLIC Tube TOPICAL ×2 (08:20→20:48)
[2019-10-02] MEDS: oxyCODONE 5 MG Tablet 10 MG PO ×2 (08:20→22:38)
--- NOTE | 2019-10-02 09:00 | PCM.PN.BLA ---
Progress Note Afebile VSS Maintaining appropriate oxygen saturation on RA Oral intake is good Discussed with nursing - no problems that need addressed Reviewed the PT/OT notes Medication list reviewed. Blood sugar record was reviewed. All blood sugars are less than 200. No hypoglycemia. No complaints. No sore throat, no cough, no chest pain, no SOB. doing well. Denies diarrhea with the increase in the mag ox. Alert, no apparent distress, appropriate, oriented x3 Lungs-clear to auscultation Heart-regular rate and rhythm Abdomen-soft, nondistended, no guarding with palpation, bowel sounds present and not hyperactive No edema of the left lower extremity Will examine all wounds tomorrow when the luly will be removed from the stump. Impressions 1. S/P BKA of the RLE 2. DM II - controlled 3. 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 Currently on magnesium oxide 400 mg p.o. 3 times daily and amiloride 5 mg daily. He has tremor and jerky movements...possibly due to hypomagnesemia. It will be interesting to see if this improves with noramlizing the magnesium. 4. BUN out of proportion to CREAT is likely due to the large amount of pork rinds he is consuming---there is 9 GM of protein in 1 serving of poke rinds. He can have pork rinds but, we will portion out the servings and he can have 2-3 daily. Recheck BMP and mag on Monday. Inpatient E&M: 62915 Subs Hosp L2
[2019-10-02 11:16] LABS: Bedside Glucose 140 mg/dL (70-110)
[2019-10-02] MEDS: Insulin Lispro 100 UNIT/ML INSULN.PEN 13 UNIT SC (11:48)
[2019-10-02 16:36] LABS: Bedside Glucose 116 mg/dL (70-110)
[2019-10-02] MEDS: Insulin Lispro 100 UNIT/ML INSULN.PEN 18 UNIT SC (16:59)
[2019-10-02 19:26] VITALS: BP 119/78; PULSE 89; RESP 17; TEMP 36.6; O2SAT 95
--- NOTE | 2019-10-02 20:45 | NURSING ---
HS BLOOD SUGAR IS 79. PT GIVEN WHOLE MILD TO DRINK AND COOKIES (PT STATES IT IS HIS FIRST PACK OF COOKIES TODAY)
[2019-10-02 20:47] VITALS: BP 119/78; PULSE 89
[2019-10-02] MEDS: Atorvastatin Calcium 40 MG Tablet PO (20:47)
[2019-10-02] MEDS: Metoprolol(XL)Succ 25 MG Tablet PO (20:47)
[2019-10-02] MEDS: Gabapentin 600 MG Tablet PO (20:48)
--- NOTE | 2019-10-02 20:57 | NURSING ---
DR WOOTEN NOTIFIED OF PT'S BOOD SUGAR OF 79. ORDERS TO HOLD LANTUS NeprisIGHT.
[2019-10-02 22:46] LABS: Bedside Glucose 79 mg/dL (70-110)
[2019-10-03] MEDS: Acetaminophen 500 MG Tablet 1000 MG PO ×3 (06:25→21:01)
[2019-10-03] MEDS: Levothyroxine 25 MCG TABLET PO (06:26)
[2019-10-03] MEDS: Gabapentin 100 MG Capsule 200 MG PO ×2 (06:26→13:45)
[2019-10-03] MEDS: Enoxaparin 40 MG/0.4 ML Syringe SC (06:26)
[2019-10-03] MEDS: Ipratropium Bromide 0.06% NASAL SPRAY 2 SPRAY NASAL ×3 (06:26→21:03)
[2019-10-03 06:55] LABS: Bedside Glucose 209 mg/dL (70-110)
[2019-10-03] MEDS: Multivitamins,Therapeutic Tablet 1 TABLET PO (07:43)
[2019-10-03] MEDS: metFORMIN HCl 1,000 MG Tablet 1000 MG PO ×2 (07:43→16:52)
[2019-10-03] MEDS: Aspirin E.C. 81 MG Tablet PO (07:43)
[2019-10-03] MEDS: Ascorbic Acid 500 MG Tablet PO ×2 (07:43→16:53)
[2019-10-03] MEDS: Lisinopril 20 MG Tablet PO (07:43)
[2019-10-03] MEDS: Magnesium Oxide 400 MG Tablet PO ×3 (07:43→16:53)
[2019-10-03] MEDS: AMILORIDE HCL 5 MG TABLET PO (07:43)
[2019-10-03] MEDS: Famotidine 20 MG Tablet PO ×2 (07:44→21:01)
[2019-10-03] MEDS: Insulin Lispro 100 UNIT/ML INSULN.PEN SC ×3 (07:44→17:05)
[2019-10-03] MEDS: Insulin Lispro 100 UNIT/ML INSULN.PEN 11 UNIT SC (07:44)
[2019-10-03] MEDS: oxyCODONE 5 MG Tablet 10 MG PO ×2 (07:44→21:16)
[2019-10-03 08:11] VITALS: BP 125/67; PULSE 79; RESP 12; TEMP 37; O2SAT 97
[2019-10-03] MEDS: Menthol/Lanolin/Calamine/Znox 113 GM Tube 1 APPLIC TOPICAL ×2 (08:36→22:08)
[2019-10-03] MEDS: Capsaicin 0.025% 1 APPLIC Tube TOPICAL ×2 (08:37→21:03)
[2019-10-03 11:50] LABS: Bedside Glucose 169 mg/dL (70-110)
--- NOTE | 2019-10-03 11:54 | NURSING ---
In to assess wounds with Dr King. the right groin incision with no drainage noted. much less redness noted as well. no induration. the left heel DTI now very faint discoloration. no deep purple color. no blistering. luly removed from the right BKA as ordered. there is some scabbing noted. some luly were difficult to remove. pt tolerated well. cleansed incision with NS. there are a few small areas of dehiscence noted. covered with dry dressing and wrapped with kerlix. reapplied the JERO wrap. pt tolerated well.
[2019-10-03] MEDS: Insulin Lispro 100 UNIT/ML INSULN.PEN 13 UNIT SC (12:03)
[2019-10-03] MEDS: Insulin Lispro 100 UNIT/ML INSULN.PEN 15 UNIT SC (17:01)
--- NOTE | 2019-10-03 17:17 | PN_ITS ---
Progress Note Afebile VSS Maintaining appropriate oxygen saturation on RA Oral intake is good. Discussed with nursing -the at bedtime blood sugar was only 79 last night and the Lantus was held. The fasting this morning was 206. Since he is no longer eating Yuliya Doone's the blood sugars have decreased. He has been much more compliant about his diet since we have been doing daily teaching about how important diet is to controlling DM and what a carbohydrate is. Reviewed the PT/OT notes - he is making continued progress. Medication list reviewed. Denies pain. No cough. No sore throat. I examined all his wounds today with Kassidy Flynn, the wound care nurse. The right groin is healing with no lenin-incisional erythema and no discharge fro m the incision. The margins are coapted well. The induration at the superior and inferior poles of the incision has significantly decreased The stump incision has no lenin-incisional erythema and no purulent discharge. The skin is wrinkled and leanna. All luly were removed. There is still a small scab which is partially adherent on the left lateral malleolus but there is no evidence of infection. The left heel pressure ulcer is gone. Impressions 1. Debility post right BKA 2. Diabetes mellitus type 2-blood sugars are well controlled when he is eating the hospital diet but the snacks have caused increased variability and some high blood sugars. When I increase the insulin to account for the snacks he stops eating snack and then the blood sugars are low. We are currently in the process of educating him with regard to carbohydrate control and also portion control. Continue to adjust insulin as needed. 3. Hypertension-controlled 4. Unstageable decubitus ulcer left heel-healed 5. Pain is adequately controlled 6. Hypomagnesemia-on a supplement and also on amiloride now. Tinea to monitor Decrease the Lantus at HS to 20 units and decrease the Humalog with supper to 15 units. Continue to monitor the BS AC and HS Lab ordered for tomorrow. Inpatient E&M: 64738 Subs Hosp L2
[2019-10-03 17:21] LABS: Bedside Glucose 168 mg/dL (70-110)
--- NOTE | 2019-10-03 17:58 | NURSING ---
Nickolas to Rt Knee we dc'd today by Kassidy wound nurse. pt tolerated well
[2019-10-03 21:00] VITALS: BP 103/57; PULSE 94
[2019-10-03] MEDS: Metoprolol(XL)Succ 25 MG Tablet PO (21:00)
[2019-10-03] MEDS: Gabapentin 600 MG Tablet PO (21:01)
[2019-10-03] MEDS: Atorvastatin Calcium 40 MG Tablet PO (21:01)
[2019-10-03 22:00] VITALS: BP 107/64; PULSE 100; RESP 14; TEMP 37; O2SAT 98
[2019-10-03 23:11] LABS: Bedside Glucose 205 mg/dL (70-110)
--- NOTE | 2019-10-04 05:02 | NURSING ---
REVIEWED AND AGREE WITH NUCLEAR SCIENTIST'S FUNCTIONAL ASSESSMENT AND HANDOFF CHARTING.
[2019-10-04] MEDS: Ipratropium Bromide 0.06% NASAL SPRAY 2 SPRAY NASAL ×3 (06:17→21:34)
[2019-10-04] MEDS: Gabapentin 100 MG Capsule 200 MG PO ×2 (06:17→12:47)
[2019-10-04] MEDS: Enoxaparin 40 MG/0.4 ML Syringe SC (06:18)
[2019-10-04] MEDS: Levothyroxine 25 MCG TABLET PO (06:19)
[2019-10-04] MEDS: Acetaminophen 500 MG Tablet 1000 MG PO ×3 (06:19→21:30)
[2019-10-04 07:00] LABS: Bedside Glucose 200 mg/dL (70-110)
[2019-10-04 07:10] LABS: Anion Gap 9 (5-15); BUN 61 mg/dL (7-18); BUN/Creat Ratio 61.4 RATIO (10-20); Calcium,Total 9.4 mg/dL (8.5-10.1); Chloride 105 mmol/L (98-107); Creatinine, Serum 0.99 mg/dL (0.70-1.30); EST Glomerular Filtration Rate 77 mL/min (>60); Est Glom Filt Rate - Afr Amer 94 mL/min (>60); Glucose 207 mg/dL (74-106); Magnesium 1.7 mg/dL (1.6-2.6); Potassium 4.8 mmol/L (3.5-5.1); Sodium Level 137 mmol/L (136-145)
[2019-10-04] MEDS: Insulin Lispro 100 UNIT/ML INSULN.PEN SC ×2 (07:42→12:38)
[2019-10-04] MEDS: metFORMIN HCl 1,000 MG Tablet 1000 MG PO ×2 (07:54→17:14)
[2019-10-04] MEDS: Insulin Lispro 100 UNIT/ML INSULN.PEN 11 UNIT SC (07:54)
[2019-10-04] MEDS: Aspirin E.C. 81 MG Tablet PO (07:54)
[2019-10-04] MEDS: Multivitamins,Therapeutic Tablet 1 TABLET PO (07:56)
[2019-10-04] MEDS: Magnesium Oxide 400 MG Tablet PO ×3 (07:56→17:18)
[2019-10-04] MEDS: Capsaicin 0.025% 1 APPLIC Tube TOPICAL ×2 (07:57→21:34)
[2019-10-04] MEDS: Famotidine 20 MG Tablet PO ×2 (07:57→21:33)
[2019-10-04] MEDS: Lisinopril 20 MG Tablet PO (07:57)
[2019-10-04] MEDS: AMILORIDE HCL 5 MG TABLET PO (07:57)
[2019-10-04] MEDS: oxyCODONE 5 MG Tablet 10 MG PO ×2 (08:00→21:33)
[2019-10-04] MEDS: Menthol/Lanolin/Calamine/Znox 113 GM Tube 1 APPLIC TOPICAL ×2 (08:09→21:35)
[2019-10-04] MEDS: Ascorbic Acid 500 MG Tablet PO ×2 (08:41→17:18)
[2019-10-04 09:25] VITALS: BP 112/64; PULSE 82; RESP 16; TEMP 36.4; O2SAT 95
--- NOTE | 2019-10-04 10:42 | PCM.PN.BLA ---
Progress Note Afebile VSS-blood pressure control is excellent. Maintaining appropriate oxygen saturation on RA Oral intake is good Discussed with nursing - no problems that need addressed Reviewed the PT/OT notes Medication list reviewed. Blood sugar record was reviewed. FBS was 200 today. At bedtime sugar was 205 blood sugars were higher on 10/03/2019 because the at bedtime Lantus the previous night was held. Changes to the No changes to the insulin regimen today but will continue to monitor blood sugars before meals and at bedtime. BMP was personally reviewed. Creatinine is 0.99 which is a tad elevated. The BUN is 61. Potassium is 4.8 and calcium and magnesium are within normal limits. Magnesium is 1.7 today, up from 1.5 on 09/30/2019. Patient is on Mag-Ox 400 mg 3 times daily and amiloride 5 mg daily and is tolerating well. Alert, oriented x3, no apparent distress, talkative and pleasant Lungs-clear to auscultation Heart-regular rate and rhythm Abdomen-soft, nontender, nondistended, no guarding with palpation, bowel sounds present No edema of the left ankle, no calf tenderness No rashes Left heel decubitus ulcer is healed Impressions 1. Debility post right BKA 2. Diabetes mellitus type 2-blood sugars are well controlled when he is eating the hospital diet but the snacks have caused increased variability and some high blood sugars. When I increase the insulin to account for the snacks he stops eating snack and then the blood sugars are low. We are currently in the process of educating him with regard to carbohydrate control and also portion control. Continue to adjust insulin as needed. 3. Hypertension-controlled 4. Unstageable decubitus ulcer left heel-healed 5. Pain is adequately controlled 6. Hypomagnesemia-on a supplement and also on amiloride now. Continue to monitor encouraged to increase water intake STROKE Vital Signs/Narrative: Vital Signs Temp Pulse Resp BP Pulse Ox 10/04/19 09:25 97.5 F L 82 16 112/64 95 Inpatient E&M: 51994 Subs Hosp L2
[2019-10-04 11:50] LABS: Bedside Glucose 195 mg/dL (70-110)
[2019-10-04] MEDS: Insulin Lispro 100 UNIT/ML INSULN.PEN 13 UNIT SC (12:39)
[2019-10-04] MEDS: Insulin Lispro 100 UNIT/ML INSULN.PEN 15 UNIT SC (17:17)
[2019-10-04 18:00] LABS: Bedside Glucose 129 mg/dL (70-110)
[2019-10-04] MEDS: Atorvastatin Calcium 40 MG Tablet PO (21:34)
[2019-10-04 21:36] LABS: Bedside Glucose 146 mg/dL (70-110)
[2019-10-04] MEDS: Gabapentin 600 MG Tablet PO (21:37)
[2019-10-04 22:00] VITALS: BP 114/65; PULSE 82; RESP 16; TEMP 36.9; O2SAT 94
[2019-10-04 22:29] VITALS: BP 98/56; PULSE 85
--- NOTE | 2019-10-05 04:50 | NURSING ---
Reviewed and agree with SEWER SYSTEM SUPERVISOR documentation and charting.
[2019-10-05] MEDS: Gabapentin 100 MG Capsule 200 MG PO ×2 (05:07→14:45)
[2019-10-05] MEDS: Acetaminophen 500 MG Tablet 1000 MG PO ×3 (05:07→22:06)
[2019-10-05] MEDS: Enoxaparin 40 MG/0.4 ML Syringe SC (05:07)
[2019-10-05] MEDS: Ipratropium Bromide 0.06% NASAL SPRAY 2 SPRAY NASAL ×3 (05:07→22:08)
[2019-10-05] MEDS: Levothyroxine 25 MCG TABLET PO (05:07)
[2019-10-05 06:50] LABS: Bedside Glucose 189 mg/dL (70-110)
[2019-10-05] MEDS: oxyCODONE 5 MG Tablet 10 MG PO ×2 (07:20→22:06)
[2019-10-05] MEDS: Insulin Lispro 100 UNIT/ML INSULN.PEN SC ×3 (08:19→17:10)
[2019-10-05] MEDS: Insulin Lispro 100 UNIT/ML INSULN.PEN 11 UNIT SC (08:19)
[2019-10-05] MEDS: Capsaicin 0.025% 1 APPLIC Tube TOPICAL ×2 (08:25→22:07)
[2019-10-05] MEDS: Lisinopril 20 MG Tablet PO (08:26)
[2019-10-05] MEDS: AMILORIDE HCL 5 MG TABLET PO (08:26)
[2019-10-05] MEDS: Famotidine 20 MG Tablet PO ×2 (08:26→22:06)
[2019-10-05] MEDS: Menthol/Lanolin/Calamine/Znox 113 GM Tube 1 APPLIC TOPICAL ×2 (08:27→22:11)
[2019-10-05] MEDS: Magnesium Oxide 400 MG Tablet PO ×3 (08:27→17:11)
[2019-10-05] MEDS: Aspirin E.C. 81 MG Tablet PO (08:27)
[2019-10-05] MEDS: Ascorbic Acid 500 MG Tablet PO ×2 (08:27→17:12)
[2019-10-05] MEDS: metFORMIN HCl 1,000 MG Tablet 1000 MG PO ×2 (08:27→17:11)
[2019-10-05] MEDS: Multivitamins,Therapeutic Tablet 1 TABLET PO (08:27)
[2019-10-05 09:19] VITALS: BP 112/58; PULSE 85; RESP 14; TEMP 36.7; O2SAT 94
[2019-10-05] MEDS: Insulin Lispro 100 UNIT/ML INSULN.PEN 13 UNIT SC (11:51)
[2019-10-05 12:05] LABS: Bedside Glucose 279 mg/dL (70-110)
[2019-10-05] MEDS: Insulin Lispro 100 UNIT/ML INSULN.PEN 15 UNIT SC (17:11)
[2019-10-05 17:20] LABS: Bedside Glucose 208 mg/dL (70-110)
[2019-10-05 19:34] VITALS: BP 152/72; PULSE 99; RESP 18; TEMP 36.2; O2SAT 96
[2019-10-05 22:05] VITALS: BP 152/72; PULSE 99
[2019-10-05] MEDS: Metoprolol(XL)Succ 25 MG Tablet PO (22:05)
[2019-10-05] MEDS: Gabapentin 600 MG Tablet PO (22:06)
[2019-10-05] MEDS: Atorvastatin Calcium 40 MG Tablet PO (22:11)
[2019-10-05 22:40] LABS: Bedside Glucose 230 mg/dL (70-110)
[2019-10-06] MEDS: Ipratropium Bromide 0.06% NASAL SPRAY 2 SPRAY NASAL ×3 (05:26→20:51)
[2019-10-06] MEDS: Levothyroxine 25 MCG TABLET PO (05:27)
[2019-10-06] MEDS: Enoxaparin 40 MG/0.4 ML Syringe SC (05:27)
[2019-10-06] MEDS: Gabapentin 100 MG Capsule 200 MG PO ×2 (05:27→13:34)
[2019-10-06] MEDS: Acetaminophen 500 MG Tablet 1000 MG PO ×3 (05:27→20:52)
[2019-10-06 07:10] LABS: Bedside Glucose 151 mg/dL (70-110)
[2019-10-06] MEDS: Capsaicin 0.025% 1 APPLIC Tube TOPICAL ×2 (07:59→20:53)
[2019-10-06] MEDS: oxyCODONE 5 MG Tablet 10 MG PO ×2 (08:01→21:00)
[2019-10-06] MEDS: metFORMIN HCl 1,000 MG Tablet 1000 MG PO ×2 (08:02→17:25)
[2019-10-06] MEDS: Multivitamins,Therapeutic Tablet 1 TABLET PO (08:02)
[2019-10-06] MEDS: Aspirin E.C. 81 MG Tablet PO (08:02)
[2019-10-06] MEDS: Insulin Lispro 100 UNIT/ML INSULN.PEN SC ×3 (08:02→17:25)
[2019-10-06] MEDS: Magnesium Oxide 400 MG Tablet PO ×3 (08:02→17:24)
[2019-10-06] MEDS: Famotidine 20 MG Tablet PO ×2 (08:02→20:52)
[2019-10-06] MEDS: AMILORIDE HCL 5 MG TABLET PO (08:02)
[2019-10-06] MEDS: Lisinopril 20 MG Tablet PO (08:02)
[2019-10-06] MEDS: Ascorbic Acid 500 MG Tablet PO ×2 (08:02→17:24)
[2019-10-06] MEDS: Insulin Lispro 100 UNIT/ML INSULN.PEN 11 UNIT SC (08:03)
[2019-10-06] MEDS: Menthol/Lanolin/Calamine/Znox 113 GM Tube 1 APPLIC TOPICAL ×2 (08:06→20:52)
[2019-10-06 09:44] VITALS: BP 116/54; PULSE 73; RESP 16; TEMP 36.9; O2SAT 96
[2019-10-06] MEDS: Insulin Lispro 100 UNIT/ML INSULN.PEN 13 UNIT SC (11:41)
[2019-10-06 12:15] LABS: Bedside Glucose 192 mg/dL (70-110)
[2019-10-06] MEDS: Insulin Lispro 100 UNIT/ML INSULN.PEN 18 UNIT SC (17:25)
[2019-10-06 17:36] LABS: Bedside Glucose 172 mg/dL (70-110)
[2019-10-06] MEDS: Gabapentin 600 MG Tablet PO (20:51)
[2019-10-06 20:52] VITALS: PULSE 94
[2019-10-06] MEDS: Metoprolol(XL)Succ 25 MG Tablet PO (20:52)
[2019-10-06] MEDS: Atorvastatin Calcium 40 MG Tablet PO (20:59)
[2019-10-06 21:11] LABS: Bedside Glucose 200 mg/dL (70-110)
[2019-10-06 22:00] VITALS: BP 135/69; PULSE 94; RESP 18; TEMP 36.8; O2SAT 96
[2019-10-07] MEDS: Gabapentin 100 MG Capsule 200 MG PO ×2 (05:15→13:27)
[2019-10-07] MEDS: Enoxaparin 40 MG/0.4 ML Syringe SC (05:15)
[2019-10-07] MEDS: Ipratropium Bromide 0.06% NASAL SPRAY 2 SPRAY NASAL ×3 (05:15→21:43)
[2019-10-07] MEDS: Acetaminophen 500 MG Tablet 1000 MG PO ×3 (05:15→21:46)
[2019-10-07] MEDS: Levothyroxine 25 MCG TABLET PO (05:15)
[2019-10-07 07:05] LABS: Bedside Glucose 230 mg/dL (70-110)
[2019-10-07] MEDS: Capsaicin 0.025% 1 APPLIC Tube TOPICAL ×2 (07:46→21:45)
[2019-10-07] MEDS: Ascorbic Acid 500 MG Tablet PO ×2 (07:48→16:46)
[2019-10-07] MEDS: AMILORIDE HCL 5 MG TABLET PO (07:48)
[2019-10-07] MEDS: oxyCODONE 5 MG Tablet 10 MG PO ×2 (07:48→21:46)
[2019-10-07] MEDS: Lisinopril 20 MG Tablet PO (07:48)
[2019-10-07] MEDS: Famotidine 20 MG Tablet PO ×2 (07:49→21:46)
[2019-10-07] MEDS: Insulin Lispro 100 UNIT/ML INSULN.PEN 11 UNIT SC (07:49)
[2019-10-07] MEDS: Magnesium Oxide 400 MG Tablet PO ×3 (07:49→16:46)
[2019-10-07] MEDS: metFORMIN HCl 1,000 MG Tablet 1000 MG PO ×2 (07:49→16:47)
[2019-10-07] MEDS: Multivitamins,Therapeutic Tablet 1 TABLET PO (07:49)
[2019-10-07] MEDS: Aspirin E.C. 81 MG Tablet PO (07:49)
[2019-10-07] MEDS: Insulin Lispro 100 UNIT/ML INSULN.PEN SC ×2 (07:49→12:13)
[2019-10-07] MEDS: Menthol/Lanolin/Calamine/Znox 113 GM Tube 1 APPLIC TOPICAL ×2 (07:55→21:43)
[2019-10-07 09:15] VITALS: BP 127/64; PULSE 72; RESP 16; TEMP 36.4; O2SAT 94
[2019-10-07 11:46] LABS: Bedside Glucose 172 mg/dL (70-110)
--- NOTE | 2019-10-07 11:47 | CASEMGMT ---
Social Work IDT met with patient and two daughters via conference call for Team meeting. Discussed patient's progress in therapy. Pt is working on right knee extension. Pt is supervised to get to edge of bed, SBA for slideboard transfers and talking more initiative to complete those independently. Pt can propel 200 ft w/c supervised. Pt's endurance is improving. Pt is min assist for shower transfer, bathing and sup. UE/LE dressing while in bed. Pt is improving on UE strength as well. Explained insurance update 10/06 and continued stay is not guaranteed. Plan is for pt to DC to [facility] under Medicaid. Will continue to follow. SEAMUS Ortega DATA ENTRY SUPERVISOR
[2019-10-07] MEDS: Insulin Lispro 100 UNIT/ML INSULN.PEN 13 UNIT SC (12:13)
--- NOTE | 2019-10-07 12:15 | PCM.PN.BLA ---
Progress Note Geoffrey was seen today on team rounds. His daughters Nina and Petra participated in a conference call with the team and Geoffrey. Afebile VSS Maintaining appropriate oxygen saturation on RA Oral intake is good Discussed with nursing - no problems that need addressed Reviewed the PT/OT notes-upper extremities are getting stronger and endurance is increasing. Medication list reviewed. Blood sugar record was reviewed. The blood sugar at at bedtime was 200 and this morning the fasting blood sugar was 230. Now instead of eating pork rinds or Yuliya Doones he is eating large amounts of grapes and not only did the blood sugars increase he has diarrhea now. We will need to portion all his snacks and have the balling 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 reinforce with him what a portion is. Alert, NAD Lungs-clear to auscultation Heart-regular rate and rhythm, no murmur, no gallop Abdomen-soft, nontender, nondistended, normal bowel sounds, no guarding with palpation No edema of the left lower extremity no calf tenderness The dressings on the wounds have been changed already today so will examine tomorrow with the wound care nurse Impressions 1. Debility post right BKA-progressing in therapy and getting stronger with better endurance. 2. Diabetes mellitus type 2-difficult to control due to his frequent snacking and inability to portion out his snacks. 3. [id number] 4. Diabetic neuropathy-patient is pain-free currently 5. Hypomagnesemia with magnesium wasting in the urine. On amiloride and Mag-Ox 400 mg 3 times daily BMP and MAG in the a.m. Consult the dietitian to go over portion control with him and to give him a list of what a portion of each snack is so that he can start to measure them out. He needs to be able to do this by himself so that when he is discharged he will know how to manage his diet STROKE Vital Signs/Narrative: Vital Signs Temp Pulse Resp BP Pulse Ox 10/07/19 09:15 97.6 F L 72 16 127/64 H 94 Inpatient E&M: 58920 Subs Hosp L2
[2019-10-07] MEDS: Insulin Lispro 100 UNIT/ML INSULN.PEN 15 UNIT SC (17:00)
[2019-10-07 17:56] LABS: Bedside Glucose 83 mg/dL (70-110)
[2019-10-07 21:26] LABS: Bedside Glucose 97 mg/dL (70-110)
[2019-10-07] MEDS: Gabapentin 600 MG Tablet PO (21:43)
[2019-10-07 21:46] VITALS: PULSE 91
[2019-10-07] MEDS: Metoprolol(XL)Succ 25 MG Tablet PO (21:46)
[2019-10-07] MEDS: Atorvastatin Calcium 40 MG Tablet PO (21:46)
--- NOTE | 2019-10-07 21:53 | NURSING ---
left boot for heel found on the floor in pt room. Pt states boot fell off and pt said, Hell with it till morning. RN advised pt of orders and reason to wear boot in keeping weight off heel but pt refused and stated he would put it on in the morning. RM reminded pt that heel is starting to heel and look better but pt would not be swayed.
[2019-10-07 21:55] VITALS: BP 114/61; PULSE 91; RESP 16; TEMP 36.8; O2SAT 96
[2019-10-08] MEDS: Ipratropium Bromide 0.06% NASAL SPRAY 2 SPRAY NASAL ×3 (04:48→20:07)
[2019-10-08] MEDS: Enoxaparin 40 MG/0.4 ML Syringe SC (04:50)
[2019-10-08] MEDS: Gabapentin 100 MG Capsule 200 MG PO ×2 (04:51→13:10)
[2019-10-08] MEDS: Levothyroxine 25 MCG TABLET PO (04:51)
[2019-10-08] MEDS: Acetaminophen 500 MG Tablet 1000 MG PO ×3 (04:55→21:16)
[2019-10-08 06:26] LABS: Bedside Glucose 167 mg/dL (70-110)
[2019-10-08 07:37] LABS: Anion Gap 8 (5-15); BUN 60 mg/dL (7-18); BUN/Creat Ratio 59.4 RATIO (10-20); Calcium,Total 9.3 mg/dL (8.5-10.1); Chloride 102 mmol/L (98-107); Creatinine, Serum 1.01 mg/dL (0.70-1.30); EST Glomerular Filtration Rate 76 mL/min (>60); Est Glom Filt Rate - Afr Amer 92 mL/min (>60); Estimated Creatinine Clearance 62.24 ml/min; Glucose 176 mg/dL (74-106); Magnesium 1.9 mg/dL (1.6-2.6); Potassium 5.4 mmol/L (3.5-5.1); Sodium Level 133 mmol/L (136-145)
[2019-10-08] MEDS: Insulin Lispro 100 UNIT/ML INSULN.PEN 11 UNIT SC (07:51)
[2019-10-08] MEDS: Insulin Lispro 100 UNIT/ML INSULN.PEN SC ×2 (07:52→11:47)
[2019-10-08] MEDS: Multivitamins,Therapeutic Tablet 1 TABLET PO (07:53)
[2019-10-08] MEDS: metFORMIN HCl 1,000 MG Tablet 1000 MG PO ×2 (07:53→17:04)
[2019-10-08] MEDS: Magnesium Oxide 400 MG Tablet PO ×3 (07:53→17:04)
[2019-10-08] MEDS: Aspirin E.C. 81 MG Tablet PO (07:53)
[2019-10-08] MEDS: AMILORIDE HCL 5 MG TABLET PO (07:54)
[2019-10-08] MEDS: Ascorbic Acid 500 MG Tablet PO ×2 (07:54→17:05)
[2019-10-08] MEDS: Menthol/Lanolin/Calamine/Znox 113 GM Tube 1 APPLIC TOPICAL ×2 (07:54→20:10)
[2019-10-08] MEDS: oxyCODONE 5 MG Tablet 10 MG PO ×2 (07:54→21:15)
[2019-10-08] MEDS: Capsaicin 0.025% 1 APPLIC Tube TOPICAL ×2 (07:55→20:13)
[2019-10-08] MEDS: Lisinopril 20 MG Tablet PO (07:55)
[2019-10-08] MEDS: Famotidine 20 MG Tablet PO ×2 (07:55→20:12)
[2019-10-08 09:35] VITALS: BP 118/76; PULSE 92; RESP 17; TEMP 36.5; O2SAT 96
[2019-10-08] MEDS: Insulin Lispro 100 UNIT/ML INSULN.PEN 13 UNIT SC (11:47)
[2019-10-08 11:51] LABS: Bedside Glucose 176 mg/dL (70-110)
--- NOTE | 2019-10-08 14:49 | PN_ITS ---
Progress Note Afebrile Blood pressure is well controlled Maintaining appropriate oxygen saturation on room air BS's looking better since the grapes are now being portioned out for him Lab today shows a sodium of 133, potassium of 5.4, BUN of 60 and a creatinine of 1.01. Magnesium is normal at 1.9. Calcium is also normal at 9.3. No complaints. Alert, no apparent distress Lungs-clear to auscultation Heart-regular rate and rhythm Abdomen soft, no tenderness with palpation There is a new deep pressure ulcer on the plantar surface of the left foot over the first metatarsal head. He apparently took the boot off last night and nursing tells me he would not put the boot back on. The heel ulcer remains healed. There is no opening in the skin over the ulcer at this time. Will monitor closely The R groin incision is healed and the incision at the stump is intact. There are one or 2 very small open areas that are having a small amount of serous d rainage. There is no lenin-incisional erythema and no odor or purulent DC. Impressions 1. Status post right BKA for diabetic foot infection/gangrene 2. New unstageable decubitus ulcer over the plantar surface of the first metatarsal head-patient noncompliant with the offloading device last night. We had a talk about this and I explained to him that if he gets an decubitus ulcer and it opens up and becomes infected he is at high risk for losing the left leg. He tells me he will wear the boot. 3. Diabetes mellitus type 2-mostly controlled 4. Mild hyperkalemia-likely related to the combined effects of lisinopril plus a potassium sparing diuretic. 5. Hyponatremia-possibly related to lisinopril plus amiloride. Continue to monitor Medication list was reviewed. He is on Lisinopril and amiloride was added to conserve Magnesium, which it is doing. Will decrease the Lisinopril dose and if the BP goes up will have to add another antihypertensive. Continue the amiloride....hold the dose in the AM tomorrow and recheck the lab on and if the K is normal on a lower dose of Lisinopril will restart Amiloride. Inpatient E&M: 38320 Subs Hosp L2
[2019-10-08 16:25] LABS: Bedside Glucose 92 mg/dL (70-110)
[2019-10-08] MEDS: Insulin Lispro 100 UNIT/ML INSULN.PEN 18 UNIT SC (17:03)
[2019-10-08 19:43] VITALS: BP 108/64; PULSE 87; RESP 16; TEMP 36.6; O2SAT 96
[2019-10-08] MEDS: Gabapentin 600 MG Tablet PO (20:06)
[2019-10-08] MEDS: Atorvastatin Calcium 40 MG Tablet PO (20:11)
[2019-10-08 20:12] VITALS: PULSE 87
[2019-10-08] MEDS: Metoprolol(XL)Succ 25 MG Tablet PO (20:12)
[2019-10-08 21:21] LABS: Bedside Glucose 100 mg/dL (70-110)
[2019-10-09] MEDS: Enoxaparin 40 MG/0.4 ML Syringe SC (05:34)
[2019-10-09] MEDS: Acetaminophen 500 MG Tablet 1000 MG PO ×3 (05:35→22:08)
[2019-10-09] MEDS: Levothyroxine 25 MCG TABLET PO (05:35)
[2019-10-09] MEDS: Gabapentin 100 MG Capsule 200 MG PO ×2 (05:36→13:41)
[2019-10-09] MEDS: Ipratropium Bromide 0.06% NASAL SPRAY 2 SPRAY NASAL ×3 (05:38→22:10)
[2019-10-09 06:55] LABS: Bedside Glucose 169 mg/dL (70-110)
[2019-10-09] MEDS: metFORMIN HCl 1,000 MG Tablet 1000 MG PO ×2 (07:39→16:33)
[2019-10-09] MEDS: Magnesium Oxide 400 MG Tablet PO ×3 (07:39→16:34)
[2019-10-09] MEDS: Multivitamins,Therapeutic Tablet 1 TABLET PO (07:39)
[2019-10-09] MEDS: Ascorbic Acid 500 MG Tablet PO ×2 (07:39→16:34)
[2019-10-09] MEDS: AMILORIDE HCL 5 MG TABLET PO (07:39)
[2019-10-09] MEDS: Aspirin E.C. 81 MG Tablet PO (07:39)
[2019-10-09] MEDS: Insulin Lispro 100 UNIT/ML INSULN.PEN SC ×2 (07:40→11:26)
[2019-10-09] MEDS: Insulin Lispro 100 UNIT/ML INSULN.PEN 11 UNIT SC (07:41)
[2019-10-09] MEDS: Menthol/Lanolin/Calamine/Znox 113 GM Tube 1 APPLIC TOPICAL ×2 (07:42→22:11)
[2019-10-09] MEDS: Famotidine 20 MG Tablet PO ×2 (08:37→22:08)
[2019-10-09] MEDS: oxyCODONE 5 MG Tablet 10 MG PO ×2 (08:37→22:08)
[2019-10-09] MEDS: Lisinopril 20 MG Tablet PO (08:38)
[2019-10-09] MEDS: Capsaicin 0.025% 1 APPLIC Tube TOPICAL ×2 (08:39→22:10)
[2019-10-09 09:24] VITALS: BP 114/60; PULSE 81; RESP 16; TEMP 36.4; O2SAT 95
[2019-10-09 11:20] LABS: Bedside Glucose 167 mg/dL (70-110)
[2019-10-09] MEDS: Insulin Lispro 100 UNIT/ML INSULN.PEN 13 UNIT SC (11:26)
[2019-10-09] MEDS: Insulin Lispro 100 UNIT/ML INSULN.PEN 18 UNIT SC (16:36)
[2019-10-09 16:46] LABS: Bedside Glucose 131 mg/dL (70-110)
[2019-10-09 19:50] VITALS: BP 103/54; PULSE 85; RESP 16; TEMP 36.8; O2SAT 96
[2019-10-09] MEDS: Gabapentin 600 MG Tablet PO (19:52)
[2019-10-09 22:09] VITALS: BP 103/54; PULSE 85
[2019-10-09] MEDS: Atorvastatin Calcium 40 MG Tablet PO (22:09)
[2019-10-09] MEDS: Metoprolol(XL)Succ 25 MG Tablet PO (22:09)
[2019-10-09 23:01] LABS: Bedside Glucose 116 mg/dL (70-110)
[2019-10-10] MEDS: Ipratropium Bromide 0.06% NASAL SPRAY 2 SPRAY NASAL ×3 (05:58→22:27)
[2019-10-10] MEDS: Acetaminophen 500 MG Tablet 1000 MG PO ×3 (05:58→22:25)
[2019-10-10] MEDS: Levothyroxine 25 MCG TABLET PO (05:58)
[2019-10-10] MEDS: Enoxaparin 40 MG/0.4 ML Syringe SC (05:58)
[2019-10-10] MEDS: Gabapentin 100 MG Capsule 200 MG PO ×2 (05:59→14:45)
[2019-10-10 07:11] LABS: Bedside Glucose 161 mg/dL (70-110)
[2019-10-10] MEDS: Aspirin E.C. 81 MG Tablet PO (08:08)
[2019-10-10] MEDS: Lisinopril 20 MG Tablet PO (08:08)
[2019-10-10] MEDS: metFORMIN HCl 1,000 MG Tablet 1000 MG PO ×2 (08:08→17:25)
[2019-10-10] MEDS: Insulin Lispro 100 UNIT/ML INSULN.PEN SC ×2 (08:08→11:48)
[2019-10-10] MEDS: Multivitamins,Therapeutic Tablet 1 TABLET PO (08:08)
[2019-10-10] MEDS: Ascorbic Acid 500 MG Tablet PO ×2 (08:08→17:25)
[2019-10-10] MEDS: Famotidine 20 MG Tablet PO ×2 (08:08→22:25)
[2019-10-10] MEDS: Magnesium Oxide 400 MG Tablet PO ×3 (08:08→17:25)
[2019-10-10] MEDS: Insulin Lispro 100 UNIT/ML INSULN.PEN 11 UNIT SC ×2 (08:09→11:48)
[2019-10-10] MEDS: AMILORIDE HCL 5 MG TABLET PO (08:10)
[2019-10-10] MEDS: oxyCODONE 5 MG Tablet 10 MG PO ×2 (08:14→22:25)
[2019-10-10] MEDS: Menthol/Lanolin/Calamine/Znox 113 GM Tube 1 APPLIC TOPICAL ×2 (08:31→22:28)
[2019-10-10 09:22] VITALS: BP 96/53; PULSE 83; RESP 18; TEMP 36.3; O2SAT 96
--- NOTE | 2019-10-10 11:01 | PN_ITS ---
Patient Problems: Active and Suspected Problems (Last Reviewed 09/12/19 @ 08:[address] Kyara King, DO) Malnutrition (Acute) Hypothyroidism (Acute) Hyperlipidemia (Acute) H/O endarterectomy (Acute) R femoral on 09/02/19 Acute blood loss anemia (Acute) Decubitus ulcer, stage II (Acute) lateral malleolus Subjective: Afebrile Vital signs stable Maintaining appropriate oxygen saturation on room air. Blood sugars are well controlled again. Patient is learning about portion size. Last stool was 10/09/2019. Blood sugars are well controlled All lab was personally reviewed. Sodium is low at 131 today and the potassium is increased at 7.3. BUN is 71 with a creatinine of 1.69, up from 1.01 on 10/08/2019. He is on AMiloride 5 mg daily. Magnesium is 2.5 today on amiloride and magnesium supplement. No diarrhea. Impressions 1. Acute renal failure-more likely than not secondary to diuretic however the patient has good oral intake. Amiloride has been discontinued. IV fluids have been ordered. 2. Hyperkalemia-secondary to combined use of lisinopril (dose decreased earlier in the week) and Amiloride with ARF. Amiloride has been discontinued and the patient received 30 g of Kayexalate. He was also given a dose of Lasix and started on IV fluids. BMP and magnesium will be rechecked in the a.m. 3. Hyponatremia likely than not secondary to diuretics 4. Diabetes mellitus type 2-very well controlled 5. Hypertension-controlled 6. 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 Hypomagnesemia-magnesium is normal on Mag-Ox 400 mg 3 times daily and amiloride 5 mg daily however we need to discontinue amiloride due to acute renal failure and hyperkalemia. - Physical Exam Vitals/I&O's: Vital Signs Temp Pulse Resp BP Pulse Ox 97.4 F L 83 18 96/53 L 96 10/10/19 09:22 10/10/19 09:22 10/10/19 09:22 10/10/19 09:10/10/19 09:22 Oxygen Flow Rate (L/min) 96 Oxygen Delivery Method Room Air Weight: 190 lb 7.67 oz Body Mass Index (BMI) 26.9 Intake and Output for Last 24 Hours 04/10/09/19 10/10/19 23:59 23:59 23:59 Intake Total 740 / 980 1800 / 1800 560 / 560 Output Total 1450 / 1850 1800 / 1900 400 / 400 Balance -710 / -870 0 / -100 160 / 160 General: Alert, Oriented x3, Cooperative HEENT: PERRLA, EOMI Oral: No Gingival or Mucosal Lesions/ Ulcerations, Dry Mucosa Neck: No JVD, No Nodes, Trachea Midline Lungs: Clear to auscultation, Normal air movement Cardiovascular: Regular rate, Regular Rhythm, Normal S1, Normal S2, No murmurs, No Ectopic Activity, No rub noted, No Gallop Abdomen: Bowel Sounds Present, Soft, Non Tender, Non-Distended, - - No guarding with palpation Extremities: No edema, No Calf Tenderness Skin: - - The stump incision is healing well with no dehiscence, no odor, no lenin-incisional erythema and no purulent discharge. The left heel decubitus ulcer is mostly healed and is a light coral color. No fluctuance. The right groin incision is healed. Neurological: Cranial nerves II-XII grossly intact, Neuro grossly intact Psych/Mental Status: Normal Affect, Appropriate Laboratory Results 10/09/19 11:07: POC Glucose 167 H 10/09/19 16:36: POC Glucose 131 H 10/09/19 22:18: POC Glucose 116 H 10/10/19 06:08: POC Glucose 161 H Current Medications Acetaminophen (Tylenol) 1,000 mg PO Q8 [facility] Last Admin: 10/10/19 05:58 Dose: 1,000 mg Documented by: Amiloride HCl (Amiloride Hcl) 5 mg PO DAILY [facility] Last Admin: 10/10/19 08:10 Dose: 5 mg Documented by: Ascorbic Acid (Vitamin C) 500 mg PO BIDCM [facility] Last Admin: 10/10/19 08:08 Dose: 500 mg Documented by: Aspirin (Ecotrin) 81 mg PO DAILY@0800 [facility] Last Admin: 10/10/19 08:08 Dose: 81 mg Documented by: Atorvastatin Calcium (Lipitor) 40 mg PO QHS [facility] Last Admin: 10/09/19 22:09 Dose: 40 mg Documented by: Bisacodyl (Dulcolax) 10 mg RECTAL .PRN X 1 PRN PRN Reason: Constipation Calamine/Phenol (Calmoseptine Ointment) 1 applic TOPICAL BID [facility]; Protocol Last Admin: 10/10/19 08:31 Dose: 1 applicatio Documented by: Capsaicin (Zostrix) 1 applic TOPICAL BID [facility]; Protocol Last Admin: 10/09/19 22:10 Dose: 1 applicatio Documented by: Dextrose (D50w Syringe) 0 gm IV X1 PRN; Protocol PRN Reason: Hypoglycemia Enoxaparin Sodium (Lovenox) 40 mg SC DAILY@0600 [facility] Last Admin: 10/10/19 05:58 Dose: 40 mg Documented by: Ergocalciferol (Vitamin D) 50,000 unit PO Fr@1000 [facility] Last Admin: 10/04/19 07:57 Dose: 50,000 unit Documented by: Famotidine (Pepcid) 20 mg PO BID [facility] Last Admin: 10/10/19 08:08 Dose: 20 mg Documented by: Gabapentin (Neurontin) 200 mg PO BID@0600,1400 [facility] Last Admin: 10/10/19 05:59 Dose: 200 mg Documented by: Gabapentin (Neurontin) 600 mg PO DAILY@2000 [facility] Last Admin: 10/09/19 19:52 Dose: 600 mg Documented by: Glucagon () 1 mg IM .X1 PRN PRN Reason: Hypoglycemia Insulin Glargine (Lantus (Bkc)) 24 units SC QHS [facility] Last Admin: 10/09/19 22:19 Dose: 24 u Documented by: Insulin Human Lispro (Humalog Kwikpen (Bkc)) 0 unit SC TIDAC [facility]; Protocol Last Admin: 10/10/19 08:08 Dose: 1 u Documented by: Insulin Human Lispro (Humalog Kwikpen (Bkc)) 11 unit SC BREAKFAST [facility] Last Admin: 10/10/19 08:09 Dose: 11 u Documented by: Insulin Human Lispro (Humalog Kwikpen (Bkc)) 13 unit SC LUNCH [facility] Last Admin: 10/09/19 11:26 Dose: 13 u Documented by: Insulin Human Lispro (Humalog Kwikpen (Bkc)) 18 unit SC DINNER [facility] Last Admin: 10/09/19 16:36 Dose: 18 u Documented by: Ipratropium [place] (Atrovent Nasal [place] (G)) 2 spray NASAL TID [facility] Last Admin: 10/10/19 05:58 Dose: 2 sprays Documented by: Levothyroxine Sodium (Synthroid) 25 mcg PO DAILY@0600 [facility] Last Admin: 10/10/19 05:58 Dose: 25 mcg Documented by: Lisinopril (Zestril) 20 mg PO DAILY [facility] Last Admin: 10/10/19 08:08 Dose: 20 mg Documented by: Magnesium Hydroxide (Milk Of Magnesia) 30 ml PO .PRN X 1 PRN PRN Reason: Constipation Last Admin: 09/20/19 21:11 Dose: 30 ml Documented by: Magnesium Oxide (Mag-Ox 400) 400 mg PO TIDCM [facility] Last Admin: 10/10/19 08:08 Dose: 400 mg Documented by: Metformin HCl (Glucophage) 1,000 mg PO BIDCM [facility] Last Admin: 10/10/19 08:08 Dose: 1,000 mg Documented by: Metoprolol Succinate (Toprol Xl (Beta Leander)) 25 mg PO QHS [facility] Last Admin: 10/09/19 22:09 Dose: 25 mg Documented by: [facility]) [facility] Last Admin: 10/10/19 08:08 Dose: 1 tablet Documented by: Oxycodone HCl (Oxyir) 5 - 10 mg PO Q4H PRN PRN PRN Reason: Pain Score 1-10/10 Last Admin: 09/25/19 12:03 Dose: 10 mg Documented by: Oxycodone HCl (Oxyir) 10 mg PO 0800,2200 [facility] Last Admin: 10/10/19 08:14 Dose: 10 mg Documented by: Polyethylene Glycol (Miralax) 17 gm PO DAILY [facility] Last Admin: 10/10/19 08:48 Dose: Not Given Documented by: Sodium Chloride () 10 - 40 ml IV UD PRN PRN Reason: SALINE FLUSH Last Admin: 09/26/19 20:48 Dose: 10 ml Documented by: Throat Lozenges (Cepacol Sore Throat Lozenge) 1 lozenge MUCOUS MEM Q2H PRN PRN PRN Reason: SORE THROAT Last Admin: 09/29/19 06:09 Dose: 1 lozenge Documented by: Zinc Sulfate (Zinc Sulfate) 220 mg PO DAILY [facility] Last Admin: 10/10/19 08:08 Dose: 220 mg Documented by: Medical Necessity - Tobacco Use Smoking Status: Former smoker - quit in the Tobacco Use: Non-smoker Assessment/Plan All Active Problems (Last Reviewed 09/12/19 @ 08:[address] Kyara King, DO) Malnutrition (Acute) Hypothyroidism (Acute) Hyperlipidemia (Acute) H/O endarterectomy (Acute) Acute blood loss anemia (Acute) Decubitus ulcer, stage II (Acute) Impressions 1. physical debility with generalized weakness due to prolonged admission at [facility] fo 3 weeks with severe sepsis due to gangrene of the R foot followed by R foot amputation on 08/23/19, R femoral enarterectomy on 09/01 and R BKA on 09/05/19 2. S/P R BKA 3. Left lateral decubitus ulcer, unstageable due to eschar 4. Peripheral arterial disease with right femoral endarterectomy on 09/02/2019 5. ? diagnosis of CAD? has never had a cath or a stent and reportedly has a negative pharmacologic stress test at [facility] prior to right BKA 6. Uncontrolled diabetes mellitus type 2 with a recent hemoglobin A1c of 9.8%. On Amaryl and Metformin and Actos and Lantus and mealtime insulin? May consider discontinuing the Amaryl and Actos and using Metformin and insulin or consider a SGLT2 inhibitor since he has known PAD or asking Dr. De Paz to do a consult. 7. Protein calorie malnutrition 8. Hypertension/hyperlipidemia/hypothyroidism/vitamin D deficiency/remote tobacco dependence - continue home meds 9. Hypomagnesemia-resolved 10. Acute renal failure-more likely than not secondary to intravascular volume depletion related to amiloride being employed to conserve magnesium. 11. Hyperkalemia-secondary to combined use of lisinopril and amiloride 12. Hyponatremia-secondary to intravascular volume depletion Discontinue amiloride Continue lisinopril for blood pressure control but hold today Start IV normal saline 1 dose of Lasix 40 mg p.o. Kayexalate 30 g p.o. now recheck lab in the a.m. Inpatient E&M: 37537 Subs Hosp L3
[2019-10-10] MEDS: Capsaicin 0.025% 1 APPLIC Tube TOPICAL ×2 (11:42→22:26)
[2019-10-10] MEDS: Insulin Lispro 100 UNIT/ML INSULN.PEN 13 UNIT SC (11:52)
--- NOTE | 2019-10-10 11:55 | CASEMGMT ---
Social Work Met with patient to discuss to DC plans. Pt agreeable to transfer to [facility] 10/11 for intermediate care. Spoke with dtr who can transport pt. Dtr to f/u with Leighann MCMAHAN at [facility] on Medicaid status. Faxed updated clinicals to [facility]. 7000 to be completed. Plan: DC to [facility] 10/11 SEAMUS Ortega TUNNELLER
[2019-10-10 12:01] LABS: Bedside Glucose 152 mg/dL (70-110)
--- NOTE | 2019-10-10 16:30 | PN_ITS ---
Patient Problems: Active and Suspected Problems (Last Reviewed 09/12/19 @ 08:[address] Kyara King, DO) Malnutrition (Acute) Hypothyroidism (Acute) Hyperlipidemia (Acute) H/O endarterectomy (Acute) R femoral on 09/02/19 Acute blood loss anemia (Acute) Decubitus ulcer, stage II (Acute) lateral malleolus Subjective: This 79-year-old male with significant past medical history of diabetes and peripheral vascular disease with previous right lower extremity amputation was seen bedside this afternoon for pre-ulcerative left heel and also for his lateral ankle. He denies pain at this time. He relates he is scheduled to get [facility] [place] this weekend. - Physical Exam Vitals/I&O's: Vital Signs Temp Pulse Resp BP Pulse Ox 97.4 F L 83 18 96/53 L 96 10/10/19 09:22 10/10/19 09:22 10/10/19 09:22 10/10/19 09:22 10/10/19 09:22 Oxygen Flow Rate (L/min) 96 Oxygen Delivery Method Room Air Weight: 86.4 kg Body Mass Index (BMI) 26.9 Intake and Output for Last 24 Hours 10/08/19 10/09/19 10/10/19 23:59 23:59 23:59 Intake Total 740 / 980 1800 / 1800 920 / 920 Output Total 1450 / 1850 1800 / 1900 800 / 800 Balance -710 / -870 0 / -100 120 / 120 General: Alert, Oriented x3, Cooperative Extremities: No cyanosis, No edema, Capillary Refill Less than 3 Seconds - All digits left foot, No Calf Tenderness - Negative [place] sign left, - - Amputation right lower extremity. Right lower extremity is very hypersensitive to touch and he has range of motion of his digits and ankle that is normal Skin: Ulcer/ Wound - There is no skin discontinuity to the foot. There is a non-blanchable posterior heel pre-ulcerative site. There is no drainage or bogginess or fluctuance on palpation. His skin is atrophic and hairless. There is no interdigital maceration or necrosis. There is a well adhered eschar to his lateral malleolus that measures approximately 5 x 4 mm. There is no purulence, erythema, streaking, odor, or signs of infection the left lower extremity. Musculoskeletal: No Tenderness to Palpation of Joints or Extremities, Muscle Wasting Neurological: - - Hypersensitivity to left foot Psych/Mental Status: Normal Affect, Appropriate Laboratory Results 10/09/19 16:36: POC Glucose 131 H 10/09/19 22:18: POC Glucose 116 H 10/10/19 06:08: POC Glucose 161 H 10/10/19 11:48: POC Glucose 152 H Current Medications Acetaminophen (Tylenol) 1,000 mg PO Q8 [facility] Last Admin: 10/10/19 14:45 Dose: 1,000 mg Documented by: Amiloride HCl (Amiloride Hcl) 5 mg PO DAILY [facility] Last Admin: 10/10/19 08:10 Dose: 5 mg Documented by: Ascorbic Acid (Vitamin C) 500 mg PO BIDCM [facility] Last Admin: 10/10/19 08:08 Dose: 500 mg Documented by: Aspirin (Ecotrin) 81 mg PO DAILY@0800 [facility] Last Admin: 10/10/19 08:08 Dose: 81 mg Documented by: Atorvastatin Calcium (Lipitor) 40 mg PO QHS [facility] Last Admin: 10/09/19 22:09 Dose: 40 mg Documented by: Bisacodyl (Dulcolax) 10 mg RECTAL .PRN X 1 PRN PRN Reason: Constipation Calamine/Phenol (Calmoseptine Ointment) 1 applic TOPICAL BID [facility]; Protocol Last Admin: 10/10/19 08:31 Dose: 1 applicatio Documented by: Capsaicin (Zostrix) 1 applic TOPICAL BID [facility]; Protocol Last Admin: 10/10/19 11:42 Dose: 1 applicatio Documented by: Dextrose (D50w Syringe) 0 gm IV X1 PRN; Protocol PRN Reason: Hypoglycemia Enoxaparin Sodium (Lovenox) 40 mg SC DAILY@0600 [facility] Last Admin: 10/10/19 05:58 Dose: 40 mg Documented by: Ergocalciferol (Vitamin D) 50,000 unit PO Fr@1000 [facility] Last Admin: 10/04/19 07:57 Dose: 50,000 unit Documented by: Famotidine (Pepcid) 20 mg PO BID [facility] Last Admin: 10/10/19 08:08 Dose: 20 mg Documented by: Gabapentin (Neurontin) 200 mg PO BID@0600,1400 [facility] Last Admin: 10/10/19 14:45 Dose: 200 mg Documented by: Gabapentin (Neurontin) 600 mg PO DAILY@1999 [facility] Last Admin: 10/09/19 19:52 Dose: 600 mg Documented by: Glucagon () 1 mg IM .X1 PRN PRN Reason: Hypoglycemia Insulin Glargine (Lantus (Bkc)) 24 units SC QHS [facility] Last Admin: 10/09/19 22:19 Dose: 24 u Documented by: Insulin Human Lispro (Humalog Kwikpen (Bk)) 0 unit SC TIDAC [facility]; Protocol Last Admin: 10/10/19 11:48 Dose: 3 u Documented by: Insulin Human Lispro (Humalog Kwikpen ([facility])) 11 unit SC BREAKFAST [facility] Last Admin: 10/10/19 11:48 Dose: 11 u Documented by: Insulin Human Lispro (Humalog Kwikpen ([facility])) 13 unit SC LUNCH [facility] Last Admin: 10/10/19 11:52 Dose: 13 u Documented by: Insulin Human Lispro (Humalog Kwikpen ([facility])) 18 unit SC DINNER [facility] Last Admin: 10/09/19 16:36 Dose: 18 u Documented by: Ipratropium [place] (Atrovent Nasal [place] (G)) 2 spray NASAL TID [facility] Last Admin: 10/10/19 14:45 Dose: 2 sprays Documented by: Levothyroxine Sodium (Synthroid) 25 mcg PO DAILY@0600 [facility] Last Admin: 10/10/19 05:58 Dose: 25 mcg Documented by: Lisinopril (Zestril) 20 mg PO DAILY [facility] Last Admin: 10/10/19 08:08 Dose: 20 mg Documented by: Magnesium Hydroxide (Milk Of Magnesia) 30 ml PO .PRN X 1 PRN PRN Reason: Constipation Last Admin: 09/20/19 21:11 Dose: 30 ml Documented by: Magnesium Oxide (Mag-Ox 400) 400 mg PO TIDCM [facility] Last Admin: 10/10/19 11:53 Dose: 400 mg Documented by: Met[facility] ([facility]) [facility] Last Admin: 10/10/19 08:08 Dose: 1,000 mg Documented by: Metoprolol Succinate (Toprol Xl (Beta Leander)) 25 mg PO QHS [facility] Last Admin: 10/09/19 22:09 Dose: 25 mg Documented by: Multivitamins ([facility]itamin) [facility] Last Admin: 10/10/19 08:08 Dose: 1 tablet Documented by: Oxycodone HCl (Oxyir) 5 - 10 mg PO Q4H PRN PRN PRN Reason: Pain Score 1-10/10 Last Admin: 09/25/19 12:03 Dose: 10 mg Documented by: Oxycodone HCl (Oxyir) 10 mg PO 0800,2200 [facility] Last Admin: 10/10/19 08:14 Dose: 10 mg Documented by: Polyethylene Glycol (Miralax) 17 gm PO DAILY [facility] Last Admin: 10/10/19 08:48 Dose: Not Given Documented by: Sodium Chloride () 10 - 40 ml IV UD PRN PRN Reason: SALINE FLUSH Last Admin: 09/26/19 20:48 Dose: 10 ml Documented by: Throat Lozenges (Cepacol Sore Throat Lozenge) 1 lozenge MUCOUS MEM Q2H PRN PRN PRN Reason: SORE THROAT Last Admin: 09/29/19 06:09 Dose: 1 lozenge Documented by: Zinc Sulfate (Zinc Sulfate) 220 mg PO DAILY [facility] Last Admin: 10/10/19 08:08 Dose: 220 mg Documented by: Medical Necessity - Tobacco Use Smoking Status: Former smoker - quit in the Tobacco Use: Non-smoker Assessment/Plan All Active Problems (Last Reviewed 09/12/19 @ 08:[address] Kyara King, ) Malnutrition (Acute) Hypothyroidism (Acute) Hyperlipidemia (Acute) H/O endarterectomy (Acute) Acute blood loss anemia (Acute) Decubitus ulcer, stage II (Acute) Posterior heel pressure ulcer - unstageable Stable eschar lateral malleolus, no signs of infection Peripheral arterial disease lower extremity Diabetes I reviewed this patient's case. He was reassured no ulcer or infection is noted to the left lower extremity. He understands he is at continued risk for limb loss. He was advised to maintain strict offloading status with his offloading boot that he has in place. He is reassured there are no signs of infection or open draining wound. I recommend placement of a dry gauze over the lateral malleolus eschar. Podiatry will continue to follow weekly to check progress on heel pressure site. It is noted he is tentatively scheduled to go to [facility] [place] this [facility]. To follow-up at the [facility] in 1 month or call sooner if there are any new questions or concerns. Discharge recommendations have been placed electronically. Please not hesitate to call if you have any questions. Ada Peng DPM, FACFAS [facility] [phone]
--- NOTE | 2019-10-10 16:31 | DCINST_ITS ---
Weight Bearing Status: Partial weight bearing - left: partial weightbear with protective shoe that does not place excessive pressure on posterior heel area. Do not walk in heel offloading boot. Call your doctor if your incision/area has: Continuous Slow Oozing, Sudden Increased Bleeding, Increased Pain/ Swelling, Increased Redness, Foul Smelling Discharge Call your doctor if you observe: Fever of 101 or Higher, Calf discomfort, Uncontrolled pain Cleanse incision/area with: Soap & Water, - - dry gauze to lateral malleolus eschar, left lower extremity no dressing required for heel pre ulcer site; monitor for progression Allergies/Adverse Reactions: Allergies No Known Allergies Allergy (Verified 08/21/19 14:43) Medications to take at Discharge Acetaminophen [Tylenol] 1,000 mg PO Q8 09/11/19 Aspir 81 1 tab PO DAILY 09/11/19 Atorvastatin Calcium [Lipitor] 40 mg PO DAILY 09/11/19 Gabapentin [Neurontin] 1 cap PO Q8 09/11/19 Glimepiride 4 mg PO BID 09/11/19 Levothyroxine [Synthroid] 25 mcg PO DAILY 09/11/19 Lisinopril [Prinivil] 10 mg PO DAILY 09/11/19 Metformin HCl 1,000 mg PO BID 09/11/19 Oxycodone [Oxyir] 5 mg PO Q6H PRN PRN 09/11/19 Pioglitazone [Actos] 30 mg PO DAILY 09/11/19 Orders to be completed after discharge: Consult: Nutrition/Dietitian Location: None Selected Primary Care Physician: Dexter Reyes Chi, MD [Primary Care Provider] - Test Results: Test results from this visit will be discussed in further detail at your follow- up appointment, if applicable. Please Follow Up With: Tu De Paz MD When: (Endocrine) Please Follow Up With: Dakota Jay DPM When: (Podiatry) 1 month, [facility]; call [phone] if concerns sooner Please Follow Up With: Michoacano Weinstein MD When: (Vascular) Proposed Discharge Date: 10/12/19
[2019-10-10] MEDS: Insulin Lispro 100 UNIT/ML INSULN.PEN 18 UNIT SC (17:24)
[2019-10-10 18:00] LABS: Bedside Glucose 114 mg/dL (70-110)
[2019-10-10 22:20] VITALS: BP 104/54; PULSE 85; RESP 16; TEMP 36.7; O2SAT 96
[2019-10-10 22:20] LABS: Bedside Glucose 111 mg/dL (70-110)
[2019-10-10] MEDS: Atorvastatin Calcium 40 MG Tablet PO (22:25)
[2019-10-10] MEDS: Gabapentin 600 MG Tablet PO (22:25)
[2019-10-10 22:26] VITALS: BP 104/54; PULSE 85
[2019-10-10] MEDS: Metoprolol(XL)Succ 25 MG Tablet PO (22:26)
[2019-10-11] MEDS: Levothyroxine 25 MCG TABLET PO (05:32)
[2019-10-11] MEDS: Gabapentin 100 MG Capsule 200 MG PO ×2 (05:32→13:31)
[2019-10-11] MEDS: Acetaminophen 500 MG Tablet 1000 MG PO ×3 (05:32→21:22)
[2019-10-11] MEDS: Ipratropium Bromide 0.06% NASAL SPRAY 2 SPRAY NASAL ×3 (05:32→21:18)
[2019-10-11] MEDS: Enoxaparin 40 MG/0.4 ML Syringe SC (05:33)
[2019-10-11 07:05] LABS: Bedside Glucose 133 mg/dL (70-110)
[2019-10-11] MEDS: Capsaicin 0.025% 1 APPLIC Tube TOPICAL ×2 (07:43→21:22)
[2019-10-11] MEDS: Insulin Lispro 100 UNIT/ML INSULN.PEN 11 UNIT SC (07:43)
[2019-10-11] MEDS: Famotidine 20 MG Tablet PO ×2 (07:44→21:19)
[2019-10-11] MEDS: Magnesium Oxide 400 MG Tablet PO ×3 (07:44→17:15)
[2019-10-11] MEDS: metFORMIN HCl 1,000 MG Tablet 1000 MG PO ×2 (07:44→17:15)
[2019-10-11] MEDS: Ascorbic Acid 500 MG Tablet PO ×2 (07:44→17:16)
[2019-10-11] MEDS: Lisinopril 20 MG Tablet PO (07:44)
[2019-10-11] MEDS: oxyCODONE 5 MG Tablet 10 MG PO ×2 (07:44→21:19)
[2019-10-11] MEDS: Multivitamins,Therapeutic Tablet 1 TABLET PO (07:44)
[2019-10-11] MEDS: Aspirin E.C. 81 MG Tablet PO (07:44)
[2019-10-11] MEDS: AMILORIDE HCL 5 MG TABLET PO (07:44)
[2019-10-11] MEDS: Menthol/Lanolin/Calamine/Znox 113 GM Tube 1 APPLIC TOPICAL ×2 (07:48→21:22)
[2019-10-11 08:23] VITALS: BP 117/57; PULSE 73; RESP 18; TEMP 36.4; O2SAT 98
[2019-10-11 12:00] LABS: Bedside Glucose 160 mg/dL (70-110)
[2019-10-11] MEDS: Insulin Lispro 100 UNIT/ML INSULN.PEN 13 UNIT SC (12:02)
[2019-10-11] MEDS: Insulin Lispro 100 UNIT/ML INSULN.PEN SC (12:02)
[2019-10-11] MEDS: 0.9% Saline Lock 10 ML Syringe IV (13:36)
[2019-10-11 14:57] LABS: Anion Gap 9 (5-15); BUN 71 mg/dL (7-18); Calcium,Total 10.1 mg/dL (8.5-10.1); Chloride 101 mmol/L (98-107); Creatinine, Serum 1.69 mg/dL (0.70-1.30); EST Glomerular Filtration Rate 42 mL/min (>60); Est Glom Filt Rate - Afr Amer 51 mL/min (>60); Glucose 182 mg/dL (74-106); Magnesium 2.5 mg/dL (1.6-2.6); Potassium 7.3 mmol/L (3.5-5.1); Sodium Level 131 mmol/L (136-145)
--- NOTE | 2019-10-11 15:33 | NURSING ---
Called [facility] and left message notifying that pt will be transferred to [facility] tomorrow 10/12/19.
[2019-10-11] MEDS: Furosemide 40 MG Tablet PO (17:13)
[2019-10-11] MEDS: Sodium Polystyrene Sulfonate 15 GM/60 ML UDC 30 GM PO (17:13)
[2019-10-11 17:16] LABS: Bedside Glucose 149 mg/dL (70-110)
[2019-10-11] MEDS: Insulin Lispro 100 UNIT/ML INSULN.PEN 18 UNIT SC (17:16)
[2019-10-11 17:35] VITALS: BP 100/53; PULSE 90; RESP 16; TEMP 36.8; O2SAT 97
[2019-10-11] MEDS: 0.9% Normal Saline 1,000 ML 999 ML IV (20:11)
[2019-10-11] MEDS: Gabapentin 600 MG Tablet PO (21:18)
[2019-10-11 21:19] VITALS: BP 112/53; PULSE 78
[2019-10-11] MEDS: Atorvastatin Calcium 40 MG Tablet PO (21:19)
[2019-10-11] MEDS: Metoprolol(XL)Succ 25 MG Tablet PO (21:19)
[2019-10-11] MEDS: 0.9% Normal Saline 1,000 ML 75 ML IV (21:26)
[2019-10-11 21:29] VITALS: BP 112/53; PULSE 75; RESP 18; TEMP 36.6; O2SAT 98
[2019-10-11 21:40] LABS: Bedside Glucose 68 mg/dL (70-110)
--- NOTE | 2019-10-11 22:36 | NURSING ---
upon checking hs accucheck, pt noted to have a blood glucose of 68. snack given and rechecked for a blood glucose of 118. dr ibarra paged and given order to hold hs dose of lantus. note left for dr sequeira.
[2019-10-11 23:05] LABS: Bedside Glucose 118 mg/dL (70-110)
--- NOTE | 2019-10-11 23:17 | NURSING ---
after speaking with dr sequeira, she ordered 10 units of Lantus x1 to be given now. will continue to monitor.
[2019-10-12] MEDS: Ipratropium Bromide 0.06% NASAL SPRAY 2 SPRAY NASAL (06:11)
[2019-10-12] MEDS: Acetaminophen 500 MG Tablet 1000 MG PO (06:12)
[2019-10-12] MEDS: Levothyroxine 25 MCG TABLET PO (06:12)
[2019-10-12] MEDS: Enoxaparin 40 MG/0.4 ML Syringe SC (06:13)
[2019-10-12] MEDS: Gabapentin 100 MG Capsule 200 MG PO (06:13)
[2019-10-12 07:11] LABS: Bedside Glucose 116 mg/dL (70-110)
[2019-10-12 07:26] LABS: Anion Gap 7 (5-15); BUN 55 mg/dL (7-18); BUN/Creat Ratio 44.7 RATIO (10-20); Calcium,Total 9.2 mg/dL (8.5-10.1); Chloride 104 mmol/L (98-107); Creatinine, Serum 1.23 mg/dL (0.70-1.30); EST Glomerular Filtration Rate 61 mL/min (>60); Est Glom Filt Rate - Afr Amer 73 mL/min (>60); Estimated Creatinine Clearance 51.11 ml/min; Glucose 112 mg/dL (74-106); Magnesium 2.3 mg/dL (1.6-2.6); Potassium 5.2 mmol/L (3.5-5.1); Sodium Level 135 mmol/L (136-145)
[2019-10-12] MEDS: Aspirin E.C. 81 MG Tablet PO (07:29)
[2019-10-12] MEDS: Ascorbic Acid 500 MG Tablet PO (07:29)
[2019-10-12] MEDS: metFORMIN HCl 1,000 MG Tablet 1000 MG PO (07:29)
[2019-10-12] MEDS: Famotidine 20 MG Tablet PO (07:29)
[2019-10-12] MEDS: Multivitamins,Therapeutic Tablet 1 TABLET PO (07:29)
[2019-10-12] MEDS: Menthol/Lanolin/Calamine/Znox 113 GM Tube 1 APPLIC TOPICAL (07:30)
[2019-10-12] MEDS: oxyCODONE 5 MG Tablet 10 MG PO (07:32)
[2019-10-12] MEDS: Magnesium Oxide 400 MG Tablet PO ×2 (07:33→11:21)
[2019-10-12] MEDS: Insulin Lispro 100 UNIT/ML INSULN.PEN 11 UNIT SC (07:33)
--- NOTE | 2019-10-12 07:49 | DS.PCM_ITS ---
Discharge Date and Diagnosis - Problem List Patient Problems: Active and Suspected Problems (Last Reviewed 09/12/19 @ 08:[address] Kyara King DO) Acute blood loss anemia (Acute) Acute renal failure (Acute) Hyperkalemia (Acute) Hyponatremia (Acute) Decubitus ulcer of foot (Acute) Plantar surface L foot over the first metatarsal head - unstageable Date of Admission: 09/11/19 Date of Discharge: 10/12/19 - Primary Discharge Diagnosis Active and Suspected Problems (Last Reviewed 09/12/19 @ 08:[address] Kyara King DO) Physical debility secondary to severe sepsis, gangrene of the right foot and BKA of the right lower extremity Status post BKA right lower extremity 09/05/2019 Status post right femoral endarterectomy on 09/02/2019 Protein calorie malnutrition (Acute)-resolved Acute blood loss anemia (Acute)-stable and hemoglobin is increasing Decubitus ulcer, unstageable (Acute) lateral malleolus Acute renal failure secondary to intravascular volume depletion-improving with hydration Hyperkalemia Hyponatremia-resolved Hypomagnesemia-secondary to increased renal losses Cellulitis right groin incision-resolved Tendinitis left elbow-improved with capsaicin - Secondary Discharge Diagnosis Chronic Problems (Last Reviewed 09/12/19 @ 08:[address] Kyara King DO) Diabetes mellitus type 2, uncontrolled (Chronic)-hemoglobin A1c was 9.8% prior to BKA Peripheral vascular disease (Chronic) History of right below knee amputation (Chronic) 09/05/2019 Coronary artery disease (Chronic)-suspected but with negative pharmacologic stress test at [facility] prior to BKA Hypertension (Chronic) Overweight (BMI 25.0-29.9) (Chronic) Tobacco dependence in remission (Chronic) quit in Edentulous (Chronic) Vitamin D deficiency (Chronic) Hypothyroidism (Acute) Hyperlipidemia (Acute) H/O endarterectomy (Acute) R femoral on 09/02/19 Osteoarthritis Diabetic nephropathy with an increased microalbumin/creatinine ratio Hospital Course and Treatment Imaging Results: Clinical Impression(s) from Imaging Studies Soft Tissue Ultrasound 09/18/19 10:05 IMPRESSION: 2 small fluid collections seen at the incision site as described most likely resulting in postoperative seromas. Electronically Signed: Daniel Rodriguez, at 12:11 EDT , Service support , Laboratory Results - last 24 hr 10/11/19 10/11/19 10/11/19 11:54 14:10 17:06 Sodium 131 L Potassium 7.3 H* Chloride 101 Carbon Dioxide 21.0 Anion Gap 9 BUN 71 H Creatinine 1.69 H Estim Creat Clear Calc 37.20 Est GFR (MDRD) Af Amer 51 L Est GFR (MDRD) Non-Af 42 L BUN/Creatinine Ratio 42.0 H Glucose 182 H Calcium 10.1 Magnesium 2.5 POC Glucose 160 H 149 H 10/11/19 10/11/19 10/12/19 21:31 22:21 06:30 Sodium 135 L Potassium 5.2 H Chloride 104 Carbon Dioxide 24.0 Anion Gap 7 BUN 55 H Creatinine 1.23 Estim Creat Clear Calc 51.11 Est GFR (MDRD) Af Amer 73 Est GFR (MDRD) Non-Af 61 BUN/Creatinine Ratio 44.7 H Glucose 112 H Calcium 9.2 Magnesium 2.3 POC Glucose 68 L 118 H 10/12/19 06:57 Sodium Potassium Chloride Carbon Dioxide Anion Gap BUN Creatinine Estim Creat Clear Calc Est GFR (MDRD) Af Amer Est GFR (MDRD) Non-Af BUN/Creatinine Ratio Glucose Calcium Magnesium POC Glucose 116 H Microbiology 09/18/19 13:45 Urine, Clean Catch Urine Culture - Final GPC Poss Enterococcus sp Coag Negative Staph 09/12/19 18:30 Stool Stool Occult Blood (LUZ MARIA) - Final Consultations 09/12/19 10:05 Consult: Onc/Wound/taker off drying kiln Routine Comment: Reason for Consult:: Rt BKA Comments:: also has area on lt heel would like you to look at Operations: None Procedures: None Summary of Care Provided: The patient is a 79 year old M with a history of poorly controlled diabetes mellitus, peripheral arterial disease, coronary artery disease, hypertension, obesity, hyperlipidemia, hypothyroidism, remote smoking history (quit in the mid ) and recent R BKA and R femoral artery endarterectomy at [facility] who was admitted to the inpt rehab unit at [facility] on 09/11/19 for > 3 hours of therapy daily to restore him at or near his prior level of function. He lives alone in a mobile home. He has 4 steps to enter his home but there is also a ramp. He was using a WC for several weeks prior to coming to the ED on 08/21/19. He has a Rollator and manual wheelchair at home. He has 2 children (Petra and Pat ) who can provide some assistance to him when he returns home. He was transferred to the inpatient rehab unit from [facility] where he had been a patient for 3 weeks. He was initially admitted with severe sepsis secondary to gangrene of the right foot. Prior to his surgeries he had a pharmacologic stress test that was negative for ischemia. Hemoglobin at discharge from [facility] was 8.8 with an MCV of 92. Hemoglobin A1c was 9.8% at [facility]. The initial lab at [facility] showed a BUN of 31 with a creatinine of 0.9. Magnesium was very low at 1.3. He was non- compliant with diet and and only checking his blood sugar once a day in the AM. Physical examination was significant for a stage II decubitus ulcer on the left lateral malleolus and unstageable decubitus ulcer on the left heel. A magnesium supplement was ordered for him. An AFO was placed on the left foot to protect his heel. He has worn this continuously throughout his admission. He did take this off on one night and refused to put it back on. The next morning he had a second unstageable decubitus ulcer over the plantar surface of the first metatarsal head. We reinforced with him the importance of wearing the AFO when he is in bed because he drives his heel into the bed and if he gets an infection in the left heel with his diabetes and peripheral vascular disease he could well lose the other leg. A 24-hour urine magnesium was obtained and the fractional excretion was calculated at 7.6% which indicates renal losses. The magnesium remained low despite supplementing with a short acting mag oxide 400 mg 3 times daily. He was started on amiloride to promote conservation of magnesium in the urine. While in the rehab unit he developed cellulitis of the right groin incision and was started on antibiotics. He was seen in consultation by Dr. Finn Rodrigues from infectious disease who agreed with the cephalexin and doxycycline. An ultrasound of the right groin was obtained on 09/18/2019 and showed 2 small fluid collection seen at the incision site that were felt to be possible seromas versus abscesses. He received a 7-day course of antibiotics and the indurated areas at the superior and inferior aspects of the incision resolved. At the time of discharge a incision is healed. Lab obtained on 10/11/2019 showed an increased serum potassium at 7.3 with a sodium of 131, BUN of 71 and a creatinine of 1.69, up from 0.86 on 09/30/2019. The magnesium was 2.5. Amiloride was discontinued and lisinopril was held. He was given a 1 L bolus of normal saline and placed on normal saline at 75 cc/h. He got 1 dose of Lasix 40 mg p.o. and a dose of Kayexalate 30 g p.o. Lab was repeated on 10/12/2019 and the sodium was 135, potassium 5.2, serum bicarb 24, BUN 55 and the creatinine was down to 1.23. Magnesium remained within normal limits at 2.3. He has done well with his therapy but he is not at a place where he could safely get into his mobile home. This was discussed with his daughters and they are going to make alternate arrangements. He was discharged to residential on 10/12/2019 to continue PT/OT prior to returning to independent living. He was given a 1 L bolus of normal saline on the day of discharge and instructed to inc rease his fluid intake. A CBC, BMP and magnesium will be done on 10/14/2019. His blood sugars have been very well controlled with occasional increases when he has indiscretion with portion size with his snacks. He has been educated on what appropriate snacks are for a diabetic and on portion size. He will follow- up with Dr. Rafael Jay for his podiatric care. He is going to follow-up with Dr. Michoacano Weinstein for peripheral vascular disease. He will follow-up with Dr. Reyes 7 to 10 days post discharge from residential. He has been transitioned to a slow magnesium preparation which will cause less loose stool. General: Alert, Oriented x3, Cooperative HEENT: PERRLA, EOMI Oral: No Gingival or Mucosal Lesions/ Ulcerations, Dry Mucosa Neck: No JVD, No Nodes, Trachea Midline Lungs: Clear to auscultation, Normal air movement Cardiovascular: Regular rate, Regular Rhythm, Normal S1, Normal S2, No murmurs, No Ectopic Activity, No rub noted, No Gallop Abdomen: Bowel Sounds Present, Soft, Non Tender, Non-Distended, - - No guarding with palpation Extremities: No edema, No Calf Tenderness Skin: - - The stump incision is healing well with no dehiscence, no odor, no lenin-incisional erythema and no purulent discharge. The left heel decubitus ulcer is mostly healed and is a light coral color. No fluctuance. The right groin incision is healed. there is still an unstageable decubitus ulcer over the ball of the foot that is deep purple with non openings in the skin and no fluctuance Neurological: Cranial nerves II-XII grossly intact, Neuro grossly intact Psych/Mental Status: Normal Affect, Appropriate This note was generated with [employer] dictation software. It may contain incorrect words, spelling, and punctuation that were not noted in checking the note before signing. Patient Problems: Active and Suspected Problems (Last Reviewed 09/12/19 @ 08:[address] Kyara King DO) Acute blood loss anemia (Acute) Acute renal failure (Acute) Hyperkalemia (Acute) Hyponatremia (Acute) Decubitus ulcer of foot (Acute) Plantar surface L foot over the first metatarsal head - unstageable - Physical Exam Vitals/I&O's: Vital Signs Temp Pulse Resp BP Pulse Ox 97.8 F 75 18 112/53 L 98 10/11/19 21:29 10/11/19 21:29 10/11/19 21:29 10/11/19 21:29 10/11/19 21:29 Oxygen Flow Rate (L/min) 96 Oxygen Delivery Method Room Air Weight: 190 lb 7.67 oz Body Mass Index (BMI) 26.9 Intake and Output for Last 24 Hours 10/10/19 10/11/19 10/12/19 23:59 23:59 23:59 Intake Total 1370 / 1370 2255 / 2255 240 / 240 Output Total 1500 / 1500 1150 / 1150 1850 / 1850 Balance -130 / -130 1105 / 1105 -1610 / -1610 Laboratory Results 10/11/19 11:54: POC Glucose 160 H 10/11/19 14:10: Sodium 131 L, Potassium 7.3 H*, Chloride 101, Carbon Dioxide 21.0, Anion Gap 9, BUN 71 H, Creatinine 1.69 H, Estim Creat Clear Calc 37.20, Est GFR (MDRD) Af Amer 51 L, Est GFR (MDRD) Non-Af 42 L, BUN/Creatinine Ratio 42.0 H, Glucose 182 H, Calcium 10.1, Magnesium 2.5 10/11/19 17:06: POC Glucose 149 H 10/11/19 21:31: POC Glucose 68 L 10/11/19 22:21: POC Glucose 118 H 10/12/19 06:30: Sodium 135 L, Potassium 5.2 H, Chloride 104, Carbon Dioxide 24.0, Anion Gap 7, BUN 55 H, Creatinine 1.23, Estim Creat Clear Calc 51.11, Est GFR (MDRD) Af Amer 73, Est GFR (MDRD) Non-Af 61, BUN/Creatinine Ratio 44.7 H, Glucose 112 H, Calcium 9.2, Magnesium 2.3 10/12/19 06:57: POC Glucose 116 H Current Medications Acetaminophen (Tylenol) 1,000 mg PO Q8 [facility] Last Admin: 10/12/19 06:12 Dose: 1,000 mg Documented by: Ascorbic Acid (Vitamin C) 500 mg PO BIDCM [facility] Last Admin: 10/12/19 07:29 Dose: 500 mg Documented by: Aspirin (Ecotrin) 81 mg PO DAILY@0800 [facility] Last Admin: 10/12/19 07:29 Dose: 81 mg Documented by: Atorvastatin Calcium (Lipitor) 40 mg PO QHS [facility] Last Admin: 10/11/19 21:19 Dose: 40 mg Documented by: Bisacodyl (Dulcolax) 10 mg RECTAL .PRN X 1 PRN PRN Reason: Constipation Calamine/Phenol (Calmoseptine Ointment) 1 applic TOPICAL BID [facility]; Protocol Last Admin: 10/12/19 07:30 Dose: 1 applicatio Documented by: Capsaicin (Zostrix) 1 applic TOPICAL BID [facility]; Protocol Last Admin: 10/11/19 21:22 Dose: 1 applicatio Documented by: Dextrose (D50w Syringe) 0 gm IV X1 PRN; Protocol PRN Reason: Hypoglycemia Enoxaparin Sodium (Lovenox) 40 mg SC DAILY@0600 [facility] Last Admin: 10/12/19 06:13 Dose: 40 mg Documented by: Ergocalciferol (Vitamin D) 50,000 unit PO Fr@1000 [facility] Last Admin: 10/11/19 07:44 Dose: 50,000 unit Documented by: Famotidine (Pepcid) 20 mg PO BID [facility] Last Admin: 10/12/19 07:29 Dose: 20 mg Documented by: Gabapentin (Neurontin) 200 mg PO BID@0600,1400 [facility] Last Admin: 10/12/19 06:13 Dose: 200 mg Documented by: Gabapentin (Neurontin) 600 mg PO DAILY@2000 [facility] Last Admin: 10/11/19 21:18 Dose: 600 mg Documented by: Glucagon () 1 mg IM .X1 PRN PRN Reason: Hypoglycemia Sodium Chloride () 1,000 mls @ 999 mls/hr IV .Q1H1M ONE Stop: 10/12/19 08:30 Insulin Glargine (Lantus (Bkc)) 20 units SC QHS [facility] Insulin Human Lispro (Humalog Kwikpen (Bkc)) 0 unit SC TIDAC [facility]; Protocol Last Admin: 10/12/19 07:34 Dose: Not Given Documented by: Insulin Human Lispro (Humalog Kwikpen (Bkc)) 11 unit SC BREAKFAST [facility] Last Admin: 10/12/19 07:33 Dose: 11 u Documented by: Insulin Human Lispro (Humalog Kwikpen (Bkc)) 13 unit SC LUNCH [facility] Last Admin: 10/11/19 12:02 Dose: 13 u Documented by: Insulin Human Lispro (Humalog Kwikpen (Bkc)) 15 unit SC DINNER [facility] Ipratropium [place] (Atrovent Nasal [place] (G)) 2 spray NASAL TID [facility] Last Admin: 10/12/19 06:11 Dose: 2 sprays Documented by: Levothyroxine Sodium (Synthroid) 25 mcg PO DAILY@0600 [facility] Last Admin: 10/12/19 06:12 Dose: 25 mcg Documented by: Lisinopril (Zestril) 20 mg PO DAILY [facility] Last Admin: 10/11/19 07:44 Dose: 20 mg Documented by: Magnesium Hydroxide (Milk Of Magnesia) 30 ml PO .PRN X 1 PRN PRN Reason: Constipation Last Admin: 09/20/19 21:11 Dose: 30 ml Documented by: Magnesium Oxide (Mag-Ox 400) 400 mg PO TIDCM [facility] Last Admin: 10/12/19 07:33 Dose: 400 mg Documented by: Metformin HCl (Glucophage) 1,000 mg PO BIDCM [facility] Last Admin: 10/12/19 07:29 Dose: 1,000 mg Documented by: Metoprolol Succinate (Toprol Xl (Beta Leander)) 25 mg PO QHS [facility] Last Admin: 10/11/19 21:19 Dose: 25 mg Documented by: Multivitamins (Multivitamin) 1 tablet PO [facility] Last Admin: 10/12/19 07:29 Dose: 1 tablet Documented by: Oxycodone HCl (Oxyir) 5 - 10 mg PO Q4H PRN PRN PRN Reason: Pain Score 1-1010 Last Admin: 09/25/19 12:03 Dose: 10 mg Documented by: Oxycodone HCl (Oxyir) 10 mg PO 0800,2200 [facility] Last Admin: 10/12/19 07:32 Dose: 10 mg Documented by: Polyethylene Glycol (Miralax) 17 gm PO DAILY [facility] Last Admin: 10/12/19 07:30 Dose: Not Given Documented by: Sodium Chloride () 10 - 40 ml IV UD PRN PRN Reason: SALINE FLUSH Last Admin: 10/11/19 13:36 Dose: 10 ml Documented by: Throat Lozenges (Cepacol Sore Throat Lozenge) 1 lozenge MUCOUS MEM Q2H PRN PRN PRN Reason: SORE THROAT Last Admin: 09/29/19 06:09 Dose: 1 lozenge Documented by: Zinc Sulfate (Zinc Sulfate) 220 mg PO DAILY [facility] Last Admin: 10/12/19 07:29 Dose: 220 mg Documented by: Weight Bearing Status: Partial weight bearing - left: partial weightbear with protective shoe that does not place excessive pressure on posterior heel area. Do not walk in heel offloading boot. Call your doctor if your incision/area has: Continuous Slow Oozing, Sudden Increased Bleeding, Increased Pain/ Swelling, Increased Redness, Foul Smelling Discharge Call your doctor if you observe: Fever of 101 or Higher, Calf discomfort, Uncontrolled pain Cleanse incision/area with: Soap & Water, - - dry gauze to lateral malleolus eschar, left lower extremity no dressing required for heel pre ulcer site; monitor for progression Home Medications: Medications to take at Discharge Acetaminophen [Tylenol] 1,000 mg PO Q8 09/11/19 Atorvastatin Calcium [Lipitor] 40 mg PO DAILY 09/11/19 Levothyroxine [Synthroid] 25 mcg PO DAILY 09/11/19 Lisinopril [Prinivil] 10 mg PO DAILY 09/11/19 Metformin HCl 1,000 mg PO BID 09/11/19 Ascorbic Acid [Vitamin C] 500 mg PO BIDCM tab 10/12/19 Aspirin E.C. [Ecotrin] 81 mg PO DAILY@0800 tab 10/12/19 Capsaicin 42.5 gm TP BID #1 cream..g. 10/12/19 Ergocalciferol [Vitamin D] 50,000 unit PO Fr@1000 cap 10/12/19 Famotidine [Pepcid] 20 mg PO BID tab 10/12/19 Gabapentin [Neurontin] 200 mg PO BID@0600,1400 cap 10/12/19 Gabapentin [Neurontin] 600 mg PO DAILY@2000 tab 10/12/19 Insulin Glargine [Lantus SoloStar Pen] 20 units SUBCUT QHS pen 10/12/19 Insulin Lispro [Humalog KwikPen] 11 unit SUBCUT BREAKFAST insuln.pen 10/12/19 Insulin Lispro [Humalog KwikPen] 13 unit SUBCUT LUNCH insuln.pen 10/12/19 Insulin Lispro [Humalog KwikPen] 15 unit SUBCUT DINNER insuln.pen 10/12/19 Ipratropium [place] 0.06% [ATROVENT NASAL SPRAY] 2 spray NASAL TID PRN PRN #1 nasal.sry 10/12/19 Magnesium Chloride [Slow-Mag] 71.5 mg PO BID #1 tablet. 10/12/19 Magnesium Hydroxide [Milk Of Magnesia] 30 ml PO .PRN X 1 PRN udc 10/12/19 Menthol/Lanolin/Calamine/Znox [Calmoseptine Ointment] 1 applic TOPICAL BID tube 10/12/19 Metoprolol(XL)Succ [Toprol Xl (Beta Leander)] 25 mg PO QHS tab 10/12/19 Multivitamins,Therapeutic [Multivitamin] 1 tab PO DAILYCM tab 10/12/19 Oxycodone [Oxyir] 10 mg PO 0800,2200 #14 tab 10/12/19 Polyethylene Glycol 3350 [Miralax] 17 gm PO DAILY PRN #1 packet 10/12/19 Zinc Sulfate (50mg elemental) [Zinc Sulfate] 220 mg PO DAILY cap 10/12/19 Following Prescrptions Were Given to Patient: Capsaicin 42.5 gm TP BID #1 cream..g. Oxycodone [Oxyir] 10 mg PO 0800,2200 #14 tab Prescription Printed Magnesium Chloride [Slow-Mag] 71.5 mg PO BID #1 tablet.dr Chou Amb Orders: Consult: Nutrition/Dietitian Location: None Selected Primary Care Physician: Dexter Reyes Chi, MD [Primary Care Provider] - Please Follow Up With: Tu De Paz MD When: (Endocrine) Please Follow Up With: Dakota Jay DPM When: (Podiatry) 1 month, [facility]; call [phone] if concerns sooner Please Follow Up With: Michoacano eWinstein MD When: (Vascular) Minutes spent on discharge:: 45 Patient Condition:: Good Medical Necessity - Tobacco Use Smoking Status: Former smoker - quit in the Tobacco Use: Non-smoker Meaningful Use Info Meaningful Use Diagnoses (Choose all that apply): None applicable Inpatient E&M: 60334 Disch Hosp
--- NOTE | 2019-10-12 07:59 | PCM.TXEXTCAR ---
- Diet 09/12/19 13:19 Diet: Calorie Controlled Is pt able to select menu?: Yes How many daily calories?: 1999 calorie - Routine Orders/Code Status Enema Type: Fleetz Enema Frequency: Daily PRN Suppository Type: Dulcolax 10mg Suppository Frequency: Daily PRN O2 Liters per Minute: 1-2 O2 Frequency: PRN Keep PO Greater than or Equal to (%): 90 Routine Lab Work: - - CBC, BMP, MAG on 10/14/19 Code Status: Full Code - Wound(s) left heel Wound Type: Pressure Injury Dressing Change: Dry Sterile Dressing Left ankle Wound Type: Pressure Injury Dressing Change: Mepilex rt groin Wound Type: Surgical Incision Dressing Change: Dry Sterile Dressing Rt BKA Wound Type: Surgical Incision Dressing Change: Dry Sterile Dressing rt k nee Wound Type: Abrasion left plantar foot Wound Type: Pressure Injury Dressing Change: Dry Sterile Dressing - Therapies Weight Bearing: Weight bearing as tolerated Extremity Affected:: Right Lower Physical Therapy: Eval and Treat Occupational Therapy: Eval and Treat - Problem/Diagnosis (1) Diabetes mellitus type 2, uncontrolled Status: Chronic Current Visit: Yes (2) Peripheral vascular disease Status: Chronic Current Visit: Yes (3) History of right below knee amputation Status: Chronic Comment: 09/05/2019 Current Visit: Yes (4) Coronary artery disease Status: Chronic Current Visit: Yes (5) Hypertension Status: Chronic Current Visit: Yes (6) Overweight (BMI 25.0-29.9) Status: Chronic Current Visit: Yes (7) Malnutrition Status: Resolved Comment: protein calorie malnutrition at admission Current Visit: Yes (8) Hypothyroidism Status: Chronic Current Visit: Yes (9) Hyperlipidemia Status: Chronic Current Visit: Yes (10) Tobacco dependence in remission Status: Chronic Comment: quit in Current Visit: Yes (11) Edentulous Status: Chronic Current Visit: Yes (12) H/O endarterectomy Status: Chronic Comment: R femoral on 09/02/19 Current Visit: Yes (13) Acute blood loss anemia Status: Acute Current Visit: Yes (14) Vitamin D deficiency Status: Chronic Current Visit: Yes (15) Decubitus ulcer, stage II Status: Resolved Comment: lateral malleolus Current Visit: Yes (16) Decubitus ulcer of foot, unstageable Status: Resolved Comment: Left heel-resolved Current Visit: Yes (17) Cellulitis Status: Resolved Comment: Right groin incision-resolved Current Visit: Yes (18) Acute renal failure Status: Acute Current Visit: Yes (19) Hyperkalemia Status: Acute Current Visit: Yes (20) Hypomagnesemia Status: Resolved Comment: Due to increased excretion of magnesium in the urine Current Visit: Yes (21) Hyponatremia Status: Acute Current Visit: Yes (22) Decubitus ulcer of foot Status: Acute Comment: Plantar surface L foot over the first metatarsal head - unstageable Current Visit: Yes - Allergies/Procedures Done in Hospital Allergies/Adverse Reactions: Allergies No Known Allergies Allergy (Verified 08/21/19 14:43) - Type of Care/Length of Stay Estimated LOS: Convalescent Care Less Than 30 days Type of Care Needed: Skilled Rehab Potential: Good Prognosis: Good - Additional Orders/Day of Discharge Additional Orders: His snacking is erratic. We have been working with him on appropriate snacks and appropriate portion control. Blood sugars have been well controlled...all less than 180. He MUST wear the AFO on the left foot 09/01. He tends to drive the left heel into the bed. He took the AFO one night and the next morning he had a new unstageable decubitus ulcer over the ball of the left foot. The ulcer over the left heel he had at admission has heeled with the use of the AFO. His content strategy lead is Dr. Jay if he has any problems. H&P will serve as current which was dated: 09/12/19 Day of Discharge: 10/12/19 - Dietary and Speech Recommendations Dietitian Recommendations/Changes: Will d/c Thong bid as no longer indicated - skin areas improved. Rec continue 1999 calorie controlled diet - Follow Up Care Primary Care Physician: Dexter Reyes Chi, MD [Primary Care Provider] - Please follow up with your Primary Care Physician in: 7 to 10 days Please Follow Up With: Tu De Paz MD - She is aware he is going to follow up with her and she plans on getting him on a twice a day insulin regimen When: (Endocrine) Please Follow Up With: Dakota Jay DPM When: (Podiatry) 1 month, [facility]; call [phone] if concerns sooner Please Follow Up With: Michoacano Weinstein MD When: (Vascular)
[2019-10-12 08:00] VITALS: BP 133/59; PULSE 75; RESP 16; TEMP 36.9; O2SAT 98
[2019-10-12] MEDS: 0.9% Normal Saline 1,000 ML 999 ML IV (08:33)
[2019-10-12] MEDS: Capsaicin 0.025% 1 APPLIC Tube TOPICAL (11:21)
[2019-10-12] MEDS: Insulin Lispro 100 UNIT/ML INSULN.PEN 13 UNIT SC (11:37)
[2019-10-12 11:50] LABS: Bedside Glucose 142 mg/dL (70-110)
--- NOTE | 2019-10-12 13:15 | NURSING ---
[facility] and patient assisted via slide board transfer to private vehicle, facial mask in place.
== END 2019-10-12 13:15 | DRG 560 ==
PROVIDERS: Admitting Provider Internal Medicine; PCP Family Medicine Geriatric Medicine; Referring Provider Internal Medicine; Visit Provider Internal Medicine
DX: Z47.81 Encounter for orthopedic aftercare following surgical amputation (principal); E11.52 Type 2 diabetes mellitus with diabetic peripheral angiopathy with gangrene; E46 Unspecified protein-calorie malnutrition; E87.1 Hypo-osmolality and hyponatremia; L03.314 Cellulitis of groin; D62 Acute posthemorrhagic anemia; L89.522 Pressure ulcer of left ankle, stage 2; L89.890 Pressure ulcer of other site, unstageable; I25.10 Atherosclerotic heart disease of native coronary artery without angina pectoris; E11.65 Type 2 diabetes mellitus with hyperglycemia; I10 Essential (primary) hypertension; E03.9 Hypothyroidism, unspecified; E78.5 Hyperlipidemia, unspecified; E11.40 Type 2 diabetes mellitus with diabetic neuropathy, unspecified; E11.21 Type 2 diabetes mellitus with diabetic nephropathy; G54.6 Phantom limb syndrome with pain; E83.42 Hypomagnesemia; S90.822A Blister (nonthermal), left foot, initial encounter; X58.XXXA Exposure to other specified factors, initial encounter; Y93.9 Activity, unspecified; Y92.129 Unspecified place in nursing home as the place of occurrence of the external cause; E87.5 Hyperkalemia; Z89.431 Acquired absence of right foot; Z87.891 Personal history of nicotine dependence; Z91.11 Patient's noncompliance with dietary regimen
CPT/HCPCS: 36415; 76882; 80048; 80053; 80061; 81001; 82043; 82274; 82570; 82962; 83735; 84100; 85025; 85027; 85652; 86140; 87086; 87088; 97110; 97162; 97167; 97530; 97535; 97542; 97802; 97803; 99251; J7030; A4216; G0463

== ENCOUNTER → 2019-11-09 10:36 | Outpatient (CLI) | payer MEDICARE, SELFPAY ==
[2019-11-09 11:09] LABS: Absolute Neutrophil Count 5.4 X10^3/uL (2.0-7.7); Basophil# 0.02 X10^3/uL; Basophil% 0.2 % (0-1); Eosinophil# 0.14 X10^3/uL; Eosinophils% 1.5 % (0-5); Hematocrit 37.8 % (40-54); Lymphocyte % 27.6 % (19-41); Mean Corp Hgb Conc 31.7 g/dL (32-36); Mean Corpuscular Hgb 28.5 pg (27.0-32.0); Mean Corpuscular Volume 89.8 fL (80-94); Mean Platelet Vol. 10.5 fl (6.2-12.0); Monocyte# 0.93 X10^3/uL; Monocyte% 10.3 % (0-10); NRBC Flagged by Analyzer 0 % (0-5); Neutrophil # 5.44 X10^3/uL (2.7-7.7); Neutrophil % 60.1 % (47-70); Platelet Count 322 K/mm3 (150-450); RBC Distribution Width SD 48.9 fl (35.1-43.9); Red Blood Count 4.21 M/mm3 (4.6-6.2); White Blood Count 9.1 K/mm3 (4.4-11.0)
[2019-11-09 11:50] LABS: ALB/GLOB Ratio 0.8 RATIO (0.9-2.4); AST(SGOT) 20 U/L (15-37); Alanine Aminotransfer ALT/SGPT 26 U/L (16-61); Albumin, Serum 3.6 g/dL (3.2-5.0); Alkaline Phosphatase 90 U/L (45-117); Anion Gap 9 (5-15); BUN 32 mg/dL (7-18); BUN/Creat Ratio 31.7 RATIO (10-20); Calcium,Total 8.9 mg/dL (8.5-10.1); Chloride 101 mmol/L (98-107); Cholesterol 91 mg/dL (200); Creatinine, Serum 1.01 mg/dL (0.70-1.30); EST Glomerular Filtration Rate 76 mL/min (>60); Est Glom Filt Rate - Afr Amer 92 mL/min (>60); Globulin 4.3 g/dL (2.2-4.2); Glucose 191 mg/dL (74-106); High Density Lipoprotein 31 mg/dL; Potassium 4.7 mmol/L (3.5-5.1); Protein, Total 7.9 g/dL (6.4-8.2); Sodium Level 136 mmol/L (136-145); Triglycerides 159 mg/dL; Very Low Density Lipoprotein 32 mg/dL (5-40)
[2019-11-11 09:09] LABS: Vitamin D,25 Hydroxy 53.4 ng/mL
== END ==
PROVIDERS: PCP Family Medicine Geriatric Medicine; Referring Provider Family Medicine Geriatric Medicine; Visit Provider Family Medicine Geriatric Medicine
DX: I10 Essential (primary) hypertension (principal); E11.9 Type 2 diabetes mellitus without complications; E78.5 Hyperlipidemia, unspecified; E55.9 Vitamin D deficiency, unspecified
CPT/HCPCS: 36415; 80053; 80061; 82306; 83036; 84443; 85025

== ENCOUNTER 2019-12-04 14:45 | Outpatient (RCR) | payer MEDICARE, SELFPAY ==
[2019-11-20 15:46] VITALS: BP 150/69; PULSE 89; RESP 16; TEMP 36.4; BMI 26.6
--- NOTE | 2019-11-20 17:16 | PCM.WC.HP ---
(1) Other specified peripheral vascular diseases Status: Acute Code(s): I73.89 - Other specified peripheral vascular diseases (2) Cellulitis of right lower limb Status: Acute Code(s): L03.115 - Cellulitis of right lower limb (3) Non-pressure chronic ulcer of unspecified part of right lower leg with fat layer exposed Status: Chronic Code(s): L97.912 - Non-pressure chronic ulcer of unspecified part of right lower leg with fat layer exposed (4) Non-pressure chronic ulcer of other part of left foot with fat layer exposed Status: Chronic Code(s): L97.522 - Non-pressure chronic ulcer of other part of left foot with fat layer exposed (5) Right leg pain Status: Acute Code(s): M79.604 - Pain in right leg History of Present Illness Date of Service: 11/20/19 Chief Complaint: Right amputation stump ulcers. Left foot multiple ulcers History of Wound: This 79-year-old male with multiple comorbidities including diabetes, peripheral vascular disease, CAD, and others was seen for bilateral lower extremity ulcers. It is noted he has prior known to podiatry during his last admission at the rehabilitation unit at [facility] this past September 2019. We are consulted for pre-ulcerative lesion to the lateral malleolus and heel and specifically for recommendations for offloading boots of the left lower extremity and for nail care in the left lower extremity. He did previously have documentation of a right below-knee amputation that was performed [facility] prior to August 2019 which were not consulted for this condition. Since he was discharged to correction facility on 10-12-2019 he has had progressive worsening of bilateral lower extremity and actual ulcer formation of left lower extremity. He has rest pain. He had prior claudication but cannot assess this at this time given his right lower extremity amputation. He is nonweightbearing. He is with his daughter today. He denies any known odor. He relates he is very ticklish and is having trouble with the debridement. He had a prior vascular intervention such as right femoral endarterectomy performed 09-02-[address] Weinstein per chart review. His primary care physician is Dr. Reyes who recently referred him over here for cellulitis and wound care. He was placed on doxycycline and cephalexin. Past Medical History Past Medical History: Chronic Problems (Last Reviewed 09/12/19 @ 08:[address] 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 [Ecotrin] 81 mg PO DAILY@0800 tab 10/12/19 Capsaicin 42.5 gm TP BID #1 cream..g. 10/12/19 Ergocalciferol [Vitamin D] 50,000 unit PO Fr@1000 cap 10/12/19 Gabapentin [Neurontin] 200 mg PO BID@0600,1400 cap 10/12/19 Gabapentin [Neurontin] 600 mg PO DAILY@2000 tab 10/12/19 Insulin Glargine [Lantus SoloStar 20 units SUBCUT QHS pen 10/12/19 Pen] Insulin Lispro [Humalog KwikPen] 11 unit SUBCUT BREAKFAST 10/12/19 insuln.pen Insulin Lispro [Humalog KwikPen] 13 unit SUBCUT LUNCH insuln.pen 10/12/19 Insulin Lispro [Humalog KwikPen] 15 unit SUBCUT DINNER insuln.pen 10/12/19 Ipratropium [place] 0.06% 2 spray NASAL TID PRN PRN #1 10/12/19 [ATROVENT NASAL SPRAY] nasal.sry Magnesium Hydroxide [Milk Of 30 ml PO .PRN X 1 PRN udc 10/12/19 Magnesia] Menthol/Lanolin/Calamine/Znox 1 applic TOPICAL BID tube 10/12/19 [Calmoseptine Ointment] Metoprolol(XL)Succ [Toprol Xl 25 mg PO QHS tab 10/12/19 (Beta [place])] Multivitamins,Therapeutic 1 tab PO DAILYCM tab 10/12/19 [Multivitamin] Oxycodone [Oxyir] 10 mg PO 0800,2200 #14 tab 10/12/19 Polyethylene Glycol 3350 [Miralax] 17 gm PO DAILY PRN #1 packet 10/12/19 Zinc Sulfate (50mg elemental) 220 mg PO DAILY cap 10/12/19 [Zinc Sulfate] - Family History Maternal No pertinent history Paternal No pertinent history, - - he is 79 years old and FH (which he knows little about is not really relavent at this stage of his life Lives: - - Recent correction facility Smoking Status: Former smoker Tobacco Use: Non-smoker Review of Systems Constitutional: Denies: Chills, Fever Cardiovascular: Reports: Edema, - - Rest pain bilateral lower extremities. Denies: Chest Pain Respiratory: Denies: Cough, Shortness of Breath Gastrointestinal: Denies: Nausea, Vomiting Musculoskeletal: Reports: Foot Pain, Leg Pain Skin: Reports: Skin Changes, Wounds Neurological: Reports: Balance problems, Incoordination, Numbness, Tingling Hematologic/ Lymphatic: Reports: Easy Bruising - Physical Exam Vital Signs Temp Pulse Resp BP 97.5 F L 89 16 150/69 H 11/20/19 15:46 11/20/19 15:46 11/20/19 15:46 11/20/19 15:46 General: Alert, Oriented x3, Cooperative, Confused - Intermittently HEENT: Atraumatic Extremities: No Calf Tenderness - Negative Joao and Vallejo sign left lower extremity, Diminished Peripheral Pulses - Nonpalpable pulses left lower extremity, Edema - Bilateral lower extremities, - - Capillary fill time is delayed to the left foot and is brisk to the amputation stump on the right. Compartments remain soft to palpate bilateral lower extremity including the remaining stump on the right and the full limb on the left. He has a right below-knee amputation. Skin: Ulcer/ Wound - There is devitalized fibrous tissue to the medial central lateral right below-knee amputation stump site with exposed deeper fascial tissue. There is no distinct probe to bone. There is peripheral edema noted here there is no viki purulence, streaking, or erythema. The left foot also has necrotic and fibrous tissue loss consistent with ulceration to the second toe, third toe, and the heel. There is no skin discontinuity to lateral malleolus site. His skin is atrophic and hairless and thin bilateral lower extremities Wound Measurements and Assessment WC - Nurse 1 - General Ulcer Measurement Start: 11/20/19 15:42 Freq: Status: Active Protocol: Activity Type Activity Date Activity User E-Sign Co-Sign Detail Recorded Client Recorded Date Recorded By Document 11/20/19 15:46 [facility] [id number] 11/20/19 16:25 [facility] 11/20/19 15:46 Wound Center Nurse 1 [Ulcer Assessment] #7- L HEEL -Combined with other wound No -Current Size (cm) - Length 1 -Current Size (cm) - Width 0.3 -Current Size (cm) - Depth 0.3 -Total Square Cm 0.3 -Date of Last Picture (Recall this 11/20/19 field) -Photo Taken Yes -Epithelialization None Present -Tunneling No -Undermining/Tunneling No -Circular Undermining No -Exudate Amt None Present -Wound Margin Distinct, Outline Attached -Granulation Amt None Present (0 %) -Slough/Fibrin Yes -Necrosis Amt Large (67-100%) -Necrotic Tissue Type Adherent Slough -Texture (Teresita-wound Skin Appearance) Assessed,Callus ,Scarring -Moisture (Teresita-wound Skin Appearance Assessed,Dry/ ) Scaly -Color (Teresita-wound Skin Appearance) Assessed -Temperature (Teresita-wound Skin No Abnormality Appearance) (Pt Warm) -Tenderness on Palpation (Teresita-wound No Skin Appearance) -Ulcer Cleansing SOAPY WATER -Foul Odor after Cleansing No -Anesthetic Used 5% Lidocaine Gel #6- L 3RD TOE -Combined with other wound No -Current Size (cm) - Length 0.1 -Current Size (cm) - Width 0.1 -Current Size (cm) - Depth 0.1 -Total Square Cm 0.01 -Date of Last Picture (Recall this 11/20/19 field) -Photo Taken Yes -Epithelialization None Present -Tunneling No -Undermining/Tunneling No -Circular Undermining No -Exudate Amt None Present -Wound Margin Distinct, Outline Attached -Granulation Amt None Present (0 %) -Slough/Fibrin Yes -Necrosis Amt Large (67-100%) -Necrotic Tissue Type Adherent Slough -Texture (Teresita-wound Skin Appearance) Assessed, Scarring -Moisture (Teresita-wound Skin Appearance Assessed,Dry/ ) Scaly -Color (Teresita-wound Skin Appearance) Assessed -Temperature (Teresita-wound Skin No Abnormality Appearance) (Pt Warm) -Tenderness on Palpation (Teresita-wound No Skin Appearance) -Ulcer Cleansing SOAPY WTER -Foul Odor after Cleansing No -Anesthetic Used 5% Lidocaine Gel #5- L 2ND TOE -Combined with other wound No -Current Size (cm) - Length 1 -Current Size (cm) - Width 0.7 -Current Size (cm) - Depth 0.1 -Total Square Cm 0.7 -Date of Last Picture (Recall this 11/20/19 field) -Photo Taken Yes -Epithelialization None Present -Tunneling No -Undermining/Tunneling No -Circular Undermining No -Exudate Amt None Present -Wound Margin Distinct, Outline Attached -Granulation Amt None Present (0 %) -Slough/Fibrin Yes -Necrosis Amt Large (67-100%) -Necrotic Tissue Type Adherent Slough -Texture (Teresita-wound Skin Appearance) Assessed, Localized Edema ,Scarring -Moisture (Teresita-wound Skin Appearance Assessed ) -Color (Teresita-wound Skin Appearance) Assessed, Erythema -Temperature (Teresita-wound Skin No Abnormality Appearance) (Pt Warm) -Tenderness on Palpation (Teresita-wound Yes Skin Appearance) -Ulcer Cleansing SOAPY WATER -Foul Odor after Cleansing No -Anesthetic Used 5% Lidocaine Gel #4- L GR TOE -Combined with other wound No -Current Size (cm) - Length 1.7 -Current Size (cm) - Width 2 -Current Size (cm) - Depth 0.1 -Total Square Cm 3.4 -Date of Last Picture (Recall this 11/20/19 field) -Photo Taken Yes -Epithelialization None Present -Tunneling No -Undermining/Tunneling No -Circular Undermining No -Exudate Amt None Present -Wound Margin Distinct, Outline Attached -Granulation Amt None Present (0 %) -Slough/Fibrin Yes -Necrosis Amt Large (67-100%) -Necrotic Tissue Type Adherent Slough -Texture (Teresita-wound Skin Appearance) Assessed, Localized Edema ,Scarring -Moisture (Teresita-wound Skin Appearance Assessed ) -Color (Teresita-wound Skin Appearance) Assessed, Erythema -Temperature (Teresita-wound Skin No Abnormality Appearance) (Pt Warm) -Tenderness on Palpation (Teresita-wound Yes Skin Appearance) -Ulcer Cleansing SOAPY WATER -Foul Odor after Cleansing No -Anesthetic Used 5% Lidocaine Gel #3- R BKA MEDIAL SITE -Combined with other wound No -Current Size (cm) - Length 1.9 -Current Size (cm) - Width 3.6 -Current Size (cm) - Depth 0.1 -Total Square Cm 6.84 -Date of Last Picture (Recall this 11/20/19 field) -Photo Taken Yes -Epithelialization None Present -Tunneling No -Undermining/Tunneling No -Circular Undermining No -Exudate Amt Small -Exudate Type Serosanguineous -Wound Margin Distinct, Outline Attached -Granulation Amt Large (67-100%) -Slough/Fibrin Yes -Necrosis Amt Large (67-100%) -Necrotic Tissue Type Adherent Slough -Texture (Teresita-wound Skin Appearance) Assessed, Scarring -Moisture (Teresita-wound Skin Appearance Assessed ) -Color (Teresita-wound Skin Appearance) Assessed, Erythema -Temperature (Teresita-wound Skin No Abnormality Appearance) (Pt Warm) -Tenderness on Palpation (Teresita-wound Yes Skin Appearance) -Ulcer Cleansing SOAPY WATER -Foul Odor after Cleansing No -Anesthetic Used 5% Lidocaine Gel #2- R BKA MIDLINE -Combined with other wound No -Current Size (cm) - Length 0.3 -Current Size (cm) - Width 0.6 -Current Size (cm) - Depth 0.2 -Total Square Cm 0.18 -Date of Last Picture (Recall this 11/20/19 field) -Photo Taken Yes -Epithelialization None Present -Tunneling No -Undermining/Tunneling No -Circular Undermining No -Exudate Amt None Present -Wound Margin Distinct, Outline Attached -Granulation Amt None Present (0 %) -Slough/Fibrin Yes -Necrosis Amt Large (67-100%) -Necrotic Tissue Type Adherent Slough -Texture (Teresita-wound Skin Appearance) Assessed, Scarring -Moisture (Teresita-wound Skin Appearance Assessed ) -Color (Teresita-wound Skin Appearance) Assessed -Temperature (Teresita-wound Skin No Abnormality Appearance) (Pt Warm) -Tenderness on Palpation (Teresita-wound Yes Skin Appearance) -Ulcer Cleansing SOAPY WATER -Foul Odor after Cleansing No -Anesthetic Used 5% Lidocaine Gel #1- R BKA LAT SITE -Combined with other wound No -Current Size (cm) - Length 2.3 -Current Size (cm) - Width 5 -Current Size (cm) - Depth 0.6 -Total Square Cm 11.5 -Date of Last Picture (Recall this 11/20/19 field) -Photo Taken Yes -Epithelialization None Present -Tunneling No -Undermining/Tunneling No -Circular Undermining No -Exudate Amt Small -Exudate Type Serosanguineous -Wound Margin Distinct, Outline Attached -Granulation Amt Small (1-33%) -Granulation Quality Red -Slough/Fibrin Yes -Necrosis Amt Large (67-100%) -Necrotic Tissue Type Adherent Slough -Texture (Teresita-wound Skin Appearance) Assessed, Localized Edema ,Scarring -Moisture (Teresita-wound Skin Appearance Assessed ) -Color (Teresita-wound Skin Appearance) Assessed, Erythema -Temperature (Teresita-wound Skin No Abnormality Appearance) (Pt Warm) -Tenderness on Palpation (Teresita-wound Yes Skin Appearance) -Ulcer Cleansing SOAPY WATER -Foul Odor after Cleansing No -Anesthetic Used 5% Lidocaine Gel [Edema Assessment] -Lower Limb Edema Present No -Left Calf (cm) 33.1 -Left Ankle (cm) 22.6 Musculoskeletal: No Tenderness to Palpation of Joints or Extremities, Muscle Wasting Neurological: - - Abnormal sensation light touch is consistent with neuropathy status. Psych/Mental Status: Normal Affect, Appropriate, Restless Debridement Note Wound debrided: BKA stump site x 3 sites Laterality: Right Wound Grade/Stage: grade 1 Type of Debridement: Excisional debridement Anesthesia Used: 5% Lidocaine Gel Depth: in the subcutaneous layer Percentage of wound debrided: 100 Instrument Used: #15 blade, Forceps Tissue Removed: fibrous, devitalized subcutaneous, biofilm, slough Severity: Fat Layer Exposed Amount of bleeding with debridement: Mild Bleeding Controlled with: Pressure Patient tolerated procedure well - Additional Wound Wound debrided: 2nd toe, 3rd toe, heel Laterality: Left Wound Grade/Stage: grade 1 Type of Debridement: Excisional debridement Anesthesia Used: 5% Lidocaine Gel Depth: in the subcutaneous layer Percentage of wound debrided: 100 Instrument Used: #15 blade, Forceps Tissue Removed: fibrous, devitalized subcutaneous, biofilm, slough Severity: Fat Layer Exposed Amount of bleeding with debridement: Mild Bleeding Controlled with: Pressure Patient tolerated procedure: Patient tolerated procedure well Assessment/Plan Assessment: Right below-knee amputation stump ulcers medial, central, lateral right with cellulitis, grade 1 and nonhealing surgical site. Cellulitis right lower extremity. Right ulcers left second toe, third toe, and heel without infection. Peripheral vascular disease. Uncontrolled diabetes. Other comorbidities. Malnutrition Plan: I reviewed and discussed his case. The etiology of the ulcers and components of a comprehensive wound healing plan were reviewed. He understands weekly visits are required to optimize healing. This patient is a poor historian and most of the information was obtained via chart review. His medical records will be requested from his primary care physician. Per chart review it is also noted he had surgery prior to August 2019 [facility] including a right below-knee amputation. This patient was advised to follow-up with his surgeon and I would like to review his case prior to proceeding with additional amputation management of the surgical site. Cultures were obtained and it is noted he is on doxycycline and cephalexin. He was advised to continue. His preliminary cultures include Enterococcus faecalis, Staphylococcus epidermidis, and gram-positive rods. If this progresses and admission may be needed. He does not have any systemic signs of illness at this time. His labs from 11-09-2019 were reviewed with a white blood cell count of 9.1, ESR 77, and a hemoglobin A1c of 7.0%. Offloading was advised via light compression and elevation to the right below-knee amputation stump site to reduce edema. He also reports he sleeps on his stomach which presses right on the ulcer and delayed surgical healing site. I advised him not to do this. I recommend he either lays on his back or side. If he is unable to do this I also offered him to offload this site by hanging his leg over pillows or using a donut pillow. He was advised to continue with his offloading PRAFO boot on the left lower extremity to avoid heel pressure and to avoid wearing shoe gear that presses on his toe ulcers. I am highly concerned that his vascular status is compromised and deteriorating. His previous vascular intervention per chart review was noted. I recommend he probably follows up with his vascular surgeon Dr. Weinstein. He also should follow-up with infectious disease specialist, Dr. Rodrigues. He is previously known to him during his last admission and stay in the rehabilitation unit here [facility] per chart review. I recommend nutritional supplementation including Thong and a well-balanced nutritious diet. I recommend updating some the diagnostic data including right leg x-rays and left foot x-rays. Order was provided. Updated arterial and venous study orders were also provided today. As noted the cultures were obtained for aerobic, anaerobic, and MRSA PCR. To follow-up with the wound healing center in 1 week. His medical records will be requested as noted. To call the office immediately or report to the emergency room if his local or systemic signs of infection progress. I answered all of his questions. I answered all of his family's questions. . [id number]. Reviewed today medication and allergy profile reviewed and reconciled. Reviewed 11-19-3029: BMI elevated at 26.7 and he was advised to follow-up with his primary care physician. Diet and activity recommendations were made for healing optimization and improved health. Blood pressure is elevated at 150/69. He was advised to follow-up with his primary care physician. He is a noted fall risk with suspected multiple falls this past year. He was advised to maintain a nonweightbearing status in a wheelchair. His recent stay at the rehabilitation unit is noted and he is already under going and exercise program for this condition. He is a current nontobacco user. His prior history of tobacco use is noted. He does not have a living will on file. He reports updated influenza immunization.
[2019-11-20 21:13] LABS: M R Staph aureus DNA By PCR Negative (Negative); Probe Check PASS; Staph aureus DNA By PCR NEGATIVE (Negative)
--- NOTE | 2019-11-27 15:15 | RAD_ITS ---
STUDY: X-RAY - LEFT FOOT CLINICAL: Male, 79 years old. LEFT FOOT ULCER TECHNIQUE: 3 view(s) of the foot. COMPARISON: None. FINDINGS: Bones are demineralized. Degenerative arthrosis noted at all visualized joint spaces. Most notably at the first MTP joint, and in the PIP and DIP joints. Small calcaneal heel spurs are noted. There is an osteophytic spur on the anterior talus. There is nonspecific induration of the subcutaneous tissue and dense vascular calcifications noted throughout the foot. There is no evidence of a fracture or erosive osseous lesion and no subcutaneous emphysema noted. 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 Electronically Signed: Mihai Crooks MD at 8:52 EDT , Service support ,
--- NOTE | 2019-11-27 15:23 | RAD_ITS ---
STUDY: X-RAY - RIGHT TIBIA AND FIBULA REASON FOR EXAM: Male, 79 years old. RIGHT LEG ULCER TECHNIQUE: 2 view(s) of the tibia and fibula were obtained. COMPARISON: None. FINDINGS: Patient has undergone amputation of the majority of the tibia and fibula. While the amputation site in the distal tibia is well-defined and smooth, the end of the remaining fibula is irregular and ill-defined on the AP film. On the lateral view it is more defined and irregular appearing. There is no demonstrated fracture in the distal femur, patella, remaining tibia or fibula. There is nonspecific induration of the subcutaneous tissue but no subcutaneous emphysema noted. No erosive osseous lesion is identified. Tricompartmental arthrosis noted. Sclerotic changes within the distal femur likely represent bone infarcts. RAD/Tibia & Fibula 2 Views IMPRESSION: Tricompartmental arthrosis with nonspecific induration of the subcutaneous fat but no erosive osseous lesion, fracture, or subcutaneous emphysema noted. Nonspecific induration of the subcutaneous fat Tricompartmental arthrosis The end of the remaining fibula shows an irregular and ill-defined border on the AP film. This is of uncertain significance since the lateral film shows the end of the more smooth and regular. Electronically Signed: Mihai Crooks MD at 8:56 EDT , Service support ,
[2019-11-27 15:54] VITALS: BP 137/74; PULSE 89; RESP 16; TEMP 36.4; BMI 26.6
--- NOTE | 2019-11-27 21:21 | PN.PCM_ITS ---
(1) Other specified peripheral vascular diseases Status: Acute Current Visit: Yes Code(s): I73.89 - Other specified peripheral vascular diseases (2) Cellulitis of right lower limb Status: Acute Current Visit: Yes Code(s): L03.115 - Cellulitis of right lower limb (3) Non-pressure chronic ulcer of unspecified part of right lower leg with fat layer exposed Status: Chronic Current Visit: Yes Code(s): L97.912 - Non-pressure chronic ulcer of unspecified part of right lower leg with fat layer exposed (4) Non-pressure chronic ulcer of other part of left foot with fat layer exposed Status: Chronic Current Visit: Yes Code(s): L97.522 - Non-pressure chronic ulcer of other part of left foot with fat layer exposed (5) Right leg pain Status: Acute Current Visit: Yes Code(s): M79.604 - Pain in right leg Type of Wound Date of Service: 11/27/19 Chief Complaint: Right amputation stump ulcers. Left foot multiple ulcers History of Wound: This 79-year-old male with multiple comorbidities including diabetes, peripheral vascular disease, CAD, and others was seen for bilateral lower extremity ulcers. He did previously have documentation of a right below-knee amputation that was performed [facility] prior to August 2019 which were not consulted for this condition. Since he was discharged to residential facility on 10-12-2019 he has had progressive worsening of bilateral lower extremity and actual ulcer formation of left lower extremity. He has rest pain. He had prior claudication but cannot assess this at this time given his right lower extremity amputation. He is nonweightbearing. He is with his daughter today. He denies any known odor. He had a prior vascular intervention such as right femoral endarterectomy performed 09-02-[address] Weinstein per chart review. His primary care physician is Dr. Reyes who recently referred him over here for cellulitis and wound care. He was placed on doxycycline and cephalexin. He would like to review his culture results today. He has significant pain and took a [place] prior to coming to the visit. Infectious disease consultation has been placed and the earliest he can be seen is in 1 week. I did receive a large file from [facility] including his medical records from his last hospital admission. Progress of Wound: Stabilizing - Physical Exam Vital Signs Temp Pulse Resp BP 97.5 F L 89 16 137/74 H 11/27/19 15:54 11/27/19 15:54 11/27/19 15:54 11/27/19 15:54 General: Alert, Oriented x3, Cooperative HEENT: Atraumatic Extremities: No Calf Tenderness - Negative Joao and Vallejo sign left. Below- knee amputation right, Diminished Peripheral Pulses Skin: Ulcer/ Wound - There is no viki purulence, erythema, streaking noted bilateral lower extremities. There is significant deterioration in necrotic and fibrous tissue noted to all 3 ulcers on the right below-knee amputation stump site. The left foot ulcer sites also have a significant degree of fibrous tissue. The adjacent skin is hairless and atrophic. In general his tissue looks dysvascular Wound Measurements and Assessment WC - Nurse 1 - General Ulcer Measurement Start: 11/20/19 15:42 Freq: Status: Active Protocol: Activity Type Activity Date Activity User E-Sign Co-Sign Detail Recorded Client Recorded Date Recorded By Document 11/27/19 15:54 [facility] [id number] 11/27/19 16:10 [facility] 11/27/19 15:54 Wound Center Nurse 1 [Ulcer Assessment] #7- L HEEL -Combined with other wound No -Current Size (cm) - Length 0.6 -Current Size (cm) - Width 0.4 -Current Size (cm) - Depth 0.1 -Total Square Cm 0.24 -Photo Taken No -Epithelialization None Present -Tunneling No -Undermining/Tunneling No -Circular Undermining No -Exudate Amt None Present -Wound Margin Distinct, Outline Attached -Granulation Amt None Present (0 %) -Slough/Fibrin Yes -Necrosis Amt Large (67-100%) -Necrotic Tissue Type Eschar -Texture (Teresita-wound Skin Appearance) Assessed, Scarring -Moisture (Teresita-wound Skin Appearance Assessed,Dry/ ) Scaly -Color (Teresita-wound Skin Appearance) Assessed -Temperature (Teresita-wound Skin No Abnormality Appearance) (Pt Warm) -Tenderness on Palpation (Teresita-wound Yes Skin Appearance) -Ulcer Cleansing Rinsed/ Irrigated with Saline -Foul Odor after Cleansing No -Anesthetic Used 4% Lidocaine Solution #6- L 3RD TOE -Combined with other wound No -Current Size (cm) - Length 0.1 -Current Size (cm) - Width 0.1 -Current Size (cm) - Depth 0.1 -Total Square Cm 0.01 -Photo Taken No -Epithelialization Large 67-100% -Exudate Amt None Present -Texture (Teresita-wound Skin Appearance) Assessed, Scarring -Moisture (Teresita-wound Skin Appearance Assessed,Dry/ ) Scaly -Color (Teresita-wound Skin Appearance) Assessed -Temperature (Teresita-wound Skin No Abnormality Appearance) (Pt Warm) -Tenderness on Palpation (Teresita-wound No Skin Appearance) -Ulcer Cleansing Rinsed/ Irrigated with Saline -Foul Odor after Cleansing No -Anesthetic Used 4% Lidocaine Solution #5- L 2ND TOE -Combined with other wound No -Current Size (cm) - Length 0.5 -Current Size (cm) - Width 0.9 -Current Size (cm) - Depth 0.1 -Total Square Cm 0.45 -Photo Taken No -Epithelialization None Present -Tunneling No -Undermining/Tunneling No -Circular Undermining No -Exudate Amt None Present -Wound Margin Distinct, Outline Attached -Granulation Amt None Present (0 %) -Slough/Fibrin Yes -Necrosis Amt Large (67-100%) -Necrotic Tissue Type Eschar -Texture (Teresita-wound Skin Appearance) Assessed, Scarring -Moisture (Teresita-wound Skin Appearance Assessed,Dry/ ) Scaly -Color (Teresita-wound Skin Appearance) Assessed -Temperature (Teresita-wound Skin No Abnormality Appearance) (Pt Warm) -Tenderness on Palpation (Teresita-wound Yes Skin Appearance) -Ulcer Cleansing Rinsed/ Irrigated with Saline -Foul Odor after Cleansing No -Anesthetic Used 4% Lidocaine Solution #4- L GR TOE -Combined with other wound No -Current Size (cm) - Length 1.9 -Current Size (cm) - Width 1.9 -Current Size (cm) - Depth 0.1 -Total Square Cm 3.61 -Photo Taken No -Epithelialization None Present -Tunneling No -Undermining/Tunneling No -Circular Undermining No -Exudate Amt None Present -Wound Margin Distinct, Outline Attached -Granulation Amt None Present (0 %) -Slough/Fibrin Yes -Necrosis Amt Large (67-100%) -Necrotic Tissue Type Eschar -Texture (Teresita-wound Skin Appearance) Assessed, Scarring -Moisture (Teresita-wound Skin Appearance Assessed,Dry/ ) Scaly -Color (Teresita-wound Skin Appearance) Assessed -Temperature (Teresita-wound Skin No Abnormality Appearance) (Pt Warm) -Tenderness on Palpation (Teresita-wound Yes Skin Appearance) -Ulcer Cleansing Rinsed/ Irrigated with Saline -Foul Odor after Cleansing No -Anesthetic Used 4% Lidocaine Solution #3- R BKA MEDIAL SITE -Combined with other wound No -Current Size (cm) - Length 1.3 -Current Size (cm) - Width 3.5 -Current Size (cm) - Depth 0.1 -Total Square Cm 4.55 -Photo Taken No -Epithelialization None Present -Tunneling No -Undermining/Tunneling No -Circular Undermining No -Exudate Amt Small -Exudate Type Serosanguineous -Wound Margin Distinct, Outline Attached -Granulation Amt None Present (0 %) -Slough/Fibrin Yes -Necrosis Amt Large (67-100%) -Necrotic Tissue Type Adherent Slough -Texture (Teresita-wound Skin Appearance) Assessed, Scarring -Moisture (Teersita-wound Skin Appearance Assessed ) -Color (Teresita-wound Skin Appearance) Assessed, Erythema -Temperature (Teresita-wound Skin No Abnormality Appearance) (Pt Warm) -Tenderness on Palpation (Teresita-wound Yes Skin Appearance) -Ulcer Cleansing Rinsed/ Irrigated with Saline -Foul Odor after Cleansing No -Anesthetic Used 4% Lidocaine Solution #2- R BKA MIDLINE -Combined with other wound No -Current Size (cm) - Length 0.1 -Current Size (cm) - Width 0.1 -Current Size (cm) - Depth 0.1 -Total Square Cm 0.01 -Photo Taken No -Epithelialization Large 67-100% -Tunneling No -Undermining/Tunneling No -Circular Undermining No -Exudate Amt None Present -Texture (Teresita-wound Skin Appearance) Assessed, Scarring -Moisture (Teresita-wound Skin Appearance Assessed,Dry/ ) Scaly -Color (Teresita-wound Skin Appearance) Assessed -Temperature (Teresita-wound Skin No Abnormality Appearance) (Pt Warm) -Tenderness on Palpation (Teresita-wound No Skin Appearance) -Ulcer Cleansing Rinsed/ Irrigated with Saline -Foul Odor after Cleansing No -Anesthetic Used 4% Lidocaine Solution #1- R BKA LAT SITE -Combined with other wound No -Current Size (cm) - Length 2.8 -Current Size (cm) - Width 4.8 -Current Size (cm) - Depth 0.5 -Total Square Cm 13.44 -Photo Taken No -Epithelialization None Present -Tunneling No -Undermining/Tunneling No -Circular Undermining No -Exudate Amt Medium -Exudate Type Serosanguineous -Wound Margin Distinct, Outline Attached -Granulation Amt None Present (0 %) -Slough/Fibrin Yes -Necrosis Amt Large (67-100%) -Necrotic Tissue Type Adherent Slough -Texture (Teresita-wound Skin Appearance) Assessed, Scarring -Moisture (Teresita-wound Skin Appearance No Abnormality ) -Color (Teresita-wound Skin Appearance) Assessed, Erythema -Temperature (Teresita-wound Skin No Abnormality Appearance) (Pt Warm) -Tenderness on Palpation (Teresita-wound Yes Skin Appearance) -Ulcer Cleansing Rinsed/ Irrigated with Saline -Foul Odor after Cleansing No -Anesthetic Used 4% Lidocaine Solution WC - Nurse 2 - General Ulcer CM Notes Start: 11/20/19 15:42 Freq: Status: Active Protocol: Activity Type Activity Date Activity User E-Sign Co-Sign Detail Recorded Client Recorded Date Recorded By Document 11/27/19 16:32 JF [id number] 11/27/19 16:37 JF 11/27/19 16:32 Wound Center Nurse 2 [Procedure/Treatment] #7- L HEEL -Correct Patient No -Correct Side, Site, Position No -Correct Procedure No -Procedure Performed No -Wound/Ulcer Outcome Not Healed #6- L 3RD TOE -Correct Patient No -Correct Side, Site, Position No -Correct Procedure No -Procedure Performed No -Wound/Ulcer Outcome Not Healed #5- L 2ND TOE -Correct Patient No -Correct Side, Site, Position No -Correct Procedure No -Procedure Performed No -Wound/Ulcer Outcome Not Healed #4- L GR TOE -Correct Patient No -Correct Side, Site, Position No -Correct Procedure No -Procedure Performed No -Wound/Ulcer Outcome Not Healed #3- R BKA MEDIAL SITE -Correct Patient No -Correct Side, Site, Position No -Correct Procedure No -Procedure Performed No -Wound/Ulcer Outcome Not Healed #2- R BKA MIDLINE -Correct Patient No -Correct Side, Site, Position No -Correct Procedure No -Procedure Performed No -Wound/Ulcer Outcome Not Healed #1- R BKA LAT SITE -Correct Patient No -Correct Side, Site, Position No -Correct Procedure No -Procedure Performed No -Wound/Ulcer Outcome Not Healed [See Physician Procedure note for Specifics] Pain Scale: 0-10 Numeric [Pain] -Is Patient Pain Free? Yes Musculoskeletal: No Tenderness to Palpation of Joints or Extremities, Muscle Wasting, - - No bogginess, crepitus, or fluctuance on palpation bilateral lower extremity. Neurological: - - He has lack of normal epicritic sensation and seems to be very hypersensitive especially on the left foot. He has pain on palpation of the right Psych/Mental Status: Normal Affect, Appropriate, - - Intermittent lethargy is noted Debridement Note Post-Debridement Measurements/Treatment WC - Nurse 2 - General Ulcer CM Notes Start: 11/20/19 15:42 Freq: Status: Active Protocol: Activity Type Activity Date Activity User E-Sign Co-Sign Detail Recorded Client Recorded Date Recorded By Document 11/20/19 17:44 PL [id number] 11/20/19 17:53 PL Document 11/27/19 16:32 JF [id number] 11/27/19 16:37 JF 11/20/19 11/27/19 17:44 16:32 Wound Center Nurse 2 #7- L HEEL -Time 16:47 -Correct Patient Yes No -Correct Side, Site, Position Yes No -Correct Procedure Yes No -Procedure Performed Yes No -Type of Procedure Debridement -Clinical Debridement Subcutaneous -Post Debridement Size (cm) - Length 1.1 -Post Debridement Size (cm) - Width 0.4 -Post Debridement Size (cm) - Depth 0.4 -Total Square Cm 0.44 -Wound/Ulcer Outcome Not Healed Not Healed -Ulcer Cleansing Rinsed/ Irrigated with Saline -Foul Odor after Cleansing No -Bleeding Controlled with Pressure -Treatment Response Procedure Tolerated Well #6- L 3RD TOE -Time 16:47 -Correct Patient Yes No -Correct Side, Site, Position Yes No -Correct Procedure Yes No -Procedure Performed Yes No -Type of Procedure Debridement -Clinical Debridement Subcutaneous -Post Debridement Size (cm) - Length 0.2 -Post Debridement Size (cm) - Width 1.2 -Post Debridement Size (cm) - Depth 0.2 -Total Square Cm 0.24 -Wound/Ulcer Outcome Not Healed Not Healed -Ulcer Cleansing Rinsed/ Irrigated with Saline -Foul Odor after Cleansing No -Bleeding Controlled with Pressure -Treatment Response Procedure Tolerated Well #5- L 2ND TOE -Time 16:47 -Correct Patient Yes No -Correct Side, Site, Position Yes No -Correct Procedure Yes No -Procedure Performed Yes No -Type of Procedure Debridement -Clinical Debridement Subcutaneous -Post Debridement Size (cm) - Length 1.1 -Post Debridement Size (cm) - Width 0.8 -Post Debridement Size (cm) - Depth 0.2 -Total Square Cm 0.88 -Wound/Ulcer Outcome Not Healed Not Healed -Ulcer Cleansing Rinsed/ Irrigated with Saline -Foul Odor after Cleansing No -Bleeding Controlled with Pressure -Treatment Response Procedure Tolerated Well #4- L GR TOE -Time 16:47 -Correct Patient Yes No -Correct Side, Site, Position Yes No -Correct Procedure Yes No -Procedure Performed Yes No -Type of Procedure Debridement -Clinical Debridement Subcutaneous -Post Debridement Size (cm) - Length 1.8 -Post Debridement Size (cm) - Width 2 -Post Debridement Size (cm) - Depth 0.1 -Total Square Cm 3.6 -Wound/Ulcer Outcome Not Healed Not Healed -Ulcer Cleansing Rinsed/ Irrigated with Saline -Foul Odor after Cleansing No -Bleeding Controlled with Pressure -Treatment Response Procedure Tolerated Well #3- R BKA MEDIAL SITE -Time 16:47 -Correct Patient Yes No -Correct Side, Site, Position Yes No -Correct Procedure Yes No -Procedure Performed Yes No -Type of Procedure Debridement -Clinical Debridement Subcutaneous -Post Debridement Size (cm) - Length 2.0 -Post Debridement Size (cm) - Width 3.7 -Post Debridement Size (cm) - Depth 0.2 -Total Square Cm 7.40 -Wound/Ulcer Outcome Not Healed Not Healed -Ulcer Cleansing Rinsed/ Irrigated with Saline -Foul Odor after Cleansing No -Bleeding Controlled with Pressure -Treatment Response Procedure Tolerated Well #2- R BKA MIDLINE -Time 16:47 -Correct Patient Yes No -Correct Side, Site, Position Yes No -Correct Procedure Yes No -Procedure Performed Yes No -Type of Procedure Debridement -Clinical Debridement Subcutaneous -Post Debridement Size (cm) - Length 0.4 -Post Debridement Size (cm) - Width 0.6 -Post Debridement Size (cm) - Depth 0.3 -Total Square Cm 0.24 -Wound/Ulcer Outcome Not Healed Not Healed -Ulcer Cleansing Rinsed/ Irrigated with Saline -Foul Odor after Cleansing No -Bleeding Controlled with Pressure -Treatment Response Procedure Tolerated Well #1- R BKA LAT SITE -Time 16:47 -Correct Patient Yes No -Correct Side, Site, Position Yes No -Correct Procedure Yes No -Procedure Performed Yes No -Type of Procedure Debridement -Clinical Debridement Subcutaneous -Post Debridement Size (cm) - Length 2.4 -Post Debridement Size (cm) - Width 5.1 -Post Debridement Size (cm) - Depth 0.7 -Total Square Cm 12.24 -Wound/Ulcer Outcome Not Healed Not Healed -Ulcer Cleansing Rinsed/ Irrigated with Saline -Foul Odor after Cleansing No -Bleeding Controlled with Pressure -Treatment Response Procedure Tolerated Well Pain Scale: 0-10 Numeric Is Patient Pain Free? Yes Yes Wound debrided: medial, central, lateral below knee amputation Laterality: Right No debridement was completed today - Additional Wound Wound debrided: heel, forefoot ulcers Laterality: Left Patient tolerated procedure: - - no debridement performed today Assessment/Plan Active Problems (Last Reviewed 09/12/19 @ 08:[address] Kyara King, ) Other specified peripheral vascular diseases (Acute) Cellulitis of right lower limb (Acute) Non-pressure chronic ulcer of unspecified part of right lower leg with fat layer exposed (Chronic) Non-pressure chronic ulcer of other part of left foot with fat layer exposed (Chronic) Right leg pain (Acute) Assessment: Right below-knee amputation stump ulcers medial, central, lateral right with cellulitis, grade 1 and nonhealing surgical site. Cellulitis right lower extremity. Right ulcers left second toe, third toe, and heel without infection. Peripheral vascular disease. Uncontrolled diabetes. Other comorbidities. Malnutrition Plan: I reviewed and discussed his case. The etiology of the ulcers and components of a comprehensive wound healing plan were reviewed. He is unable to tolerate a debridement today. This will be considered next week. Per chart review it is also noted he had surgery prior to August 2019 [facility] including a right below-knee amputation. This patient was advised to follow-up with his surgeon and I would like to review his case prior to proceeding with additional amputation management of the surgical site. Cultures were obtained and it is noted he is on doxycycline and cephalexin. He was advised to continue. His preliminary cultures include Enterococcus faecalis, Staphylococcus epidermidis, and gram-positive rods, and anaerobic cocci. He has been changing the dressing with Betadine and this has significantly dried up the ulcer bed. I would like to change his antibiotic to Augmentin. This was electronically sent to his pharmacy of choice. He had also previously set up an infectious disease consultation. He relates he can be seen his next week and this is appreciated. His labs from 11-09-2019 were reviewed with a white blood cell count of 9.1, ESR 77, and a hemoglobin A1c of 7.0%. Offloading was advised via light compression and elevation to the right below-knee amputation stump site to reduce edema. He also reports he sleeps on his stomach which presses right on the ulcer and delayed surgical healing site. I advised him not to do this. I recommend he either lays on his back or side. If he is unable to do this I also offered him to offload this site by hanging his leg over pillows or using a donut pillow. He was advised to continue with his offloading PRAFO boot on the left lower extremity to avoid heel pressure and to avoid wearing shoe gear that presses on his toe ulcers. I am highly concerned that his vascular status is compromised and deteriorating. His previous vascular intervention per chart review was noted. I recommend he probably follows up with his vascular surgeon Dr. Weinstein. I recommend nutritional supplementation including Thong and a well-balanced nutritious diet. I recommend updating some the diagnostic data including right leg x-rays and left foot x-rays. Order was provided. To follow-up with the wound healing center in 1 week. I did receive multiple medical records and the information is incorporated into this note. To call the office immediately or report to the emergency room if his local or systemic signs of infection progress. I answered all of his questions. I answered all of his family's questions. I reviewed his medical records from [facility] as the following: He was admitted for a right foot infection and gangrene in early August 2019. 08-22-2019: He had a culture of the Right foot including mixed javier on 08-22-2019. MRI of the foot demonstrated necrosis and potential early osteomyelitis of the toes there is also foci of air in the entire foot. He had an arterial ultrasound demonstrating a right BECKI of 0.29 and toe brachial index of 0.0. The left BECKI was 1.91 and toe brachial index was 0.0. 08-23-2019: Hemoglobin A1c 9.8, he had a right below-knee amputation [facility] with Dr. Gordo Figueroa MD. 08-28-2019: Angiogram bilateral lower extremity runoff performed by Yadi Mata MD. a nuclear medicine stress test was also performed which was normal and he also had a normal EKG with no signs of ischemia. 08-29-2019 aortogram with bilateral lower extremity runoff demonstrated significant stenosis and partial occlusion of the right common femoral artery and bilateral superficial femoral artery occlusion. The right below-knee popliteal artery was identified with two-vessel runoff to the foot. On the left lower extremity there was reconstitution at the above-knee popliteal area. 09-02-2019 right femoral enterectomy with popliteal angioplasty performed. 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 Finn Beltran. The doctors on file the provided treatment for him well [facility] include Dr. Gonzalez for hospital management, Dr. Badillo, Dr. Beltran, Dr. Figueroa. *Over 40 minutes was spent on this face-to- face encounter including evaluation, treatment, management, education, chart review, and care coordination. I answered all of his questions. . [id number]. Reviewed today medication and allergy profile reviewed and reconciled. Reviewed 11-19-3029: BMI elevated at 26.7 and he was advised to follow-up with his primary care physician. Diet and activity recommendations were made for healing optimization and improved health. Blood pressure is elevated at 150/69. He was advised to follow-up with his primary care physician. He is a noted fall risk with suspected multiple falls this past year. He was advised to maintain a nonweightbearing status in a wheelchair. His recent stay at the rehabilitation unit is noted and he is already under going and exercise program for this condition. He is a current nontobacco user. His prior history of tobacco use is noted. He does not have a living will on file. He reports updated influenza immunization.
[2019-12-04 14:09] VITALS: BP 150/89; PULSE 89; RESP 18; TEMP 36.4; BMI 26.6
--- NOTE | 2019-12-04 15:32 | PN.PCM_ITS ---
(1) Other specified peripheral vascular diseases Status: Acute Current Visit: Yes Code(s): I73.89 - Other specified peripheral vascular diseases (2) Cellulitis of right lower limb Status: Acute Current Visit: Yes Code(s): L03.115 - Cellulitis of right lower limb (3) Non-pressure chronic ulcer of other part of left foot with fat layer exposed Status: Chronic Current Visit: Yes Code(s): L97.522 - Non-pressure chronic ulcer of other part of left foot with fat layer exposed (4) Right leg pain Status: Acute Current Visit: Yes Code(s): M79.604 - Pain in right leg (5) Ulcer of right lower extremity with necrosis of muscle Status: Acute Current Visit: Yes Code(s): L97.913 - Non-pressure chronic ulcer of unspecified part of right lower leg with necrosis of muscle Type of Wound Date of Service: 12/04/19 Chief Complaint: Right amputation stump ulcers. Left foot multiple ulcers History of Wound: This 79-year-old male with multiple comorbidities including diabetes, peripheral vascular disease, CAD, and others was seen for bilateral lower extremity ulcers. He did previously have documentation of a right below-knee amputation that was performed [facility] with Dr. Gordo Figueroa. He has not been able to follow-up with his surgeon yet as advised. He has continued rest pain. He had prior claudication but cannot assess this at this time given his right lower extremity amputation. He is nonweightbearing. He is with his daughter today. He had a prior vascular intervention such as right femoral endarterectomy performed 09-02-[address] Weinstein per chart review. He has not rescheduled yet. He takes norco for pain prior to wound center follow up visit. He was seen by infectious disease today who updated his antibiotics. Progress of Wound: Worse status right. Stable left - Physical Exam Vital Signs Temp Pulse Resp BP 97.6 F L 89 18 150/89 H 12/04/19 14:12/04/19 14:12/04/19 14:12/04/19 14:09 General: Alert, Oriented x3, Cooperative, No apparent distress HEENT: Atraumatic Extremities: No cyanosis, Capillary Refill Less than 3 Seconds - two the aspects of the stump site, No Calf Tenderness - Left, Diminished Peripheral Pulses, Edema - Stump site right and no edema to left lower extremity, - - Right below- knee amputation. The compartments are soft to palpate. There is delayed capillary fill time to the left foot digits. Skin: Ulcer/ Wound - The left foot has dry stable eschars with peripheral skin peeling. The eschars are well adhered at the ulcer sites and there is no probe to bone. The adjacent skin is hairless and atrophic. There is no erythema, purulence, odor streaking noted on the left foot. The right below-knee amputation stump site medial aspect has a fibrous eschar without odor. There is no redness or streaking noted to the other central and lateral ulcer site however this is deteriorating and there is now exposed devitalized necrotic muscle. There is also positive probing to bone at this site as well and there is not viki pus on expression however the tissue is fibrinous and devitalized and this is also consistent with an infection. Prior multi-organism growth was noted Wound Measurements and Assessment WC - Nurse 1 - General Ulcer Measurement Start: 11/20/19 15:42 Freq: Status: Active Protocol: Activity Type Activity Date Activity User E-Sign Co-Sign Detail Recorded Client Recorded Date Recorded By Document 12/04/19 14:09 DL [id number] 12/04/19 14:26 DL 12/04/19 14:09 Wound Center Nurse 1 [Ulcer Assessment] #7- L HEEL -Current Size (cm) - Length 0.7 -Current Size (cm) - Width 0.4 -Current Size (cm) - Depth 0.1 -Total Square Cm 0.28 -Photo Taken No -Exudate Amt None Present -Wound Margin Thickened -Granulation Amt None Present (0 %) -Necrosis Amt Small (1-33%) -Necrotic Tissue Type Eschar -Structure Exposed N/A -Texture (Teresita-wound Skin Appearance) No Abnormality -Moisture (Teresita-wound Skin Appearance Dry/Scaly ) -Color (Teresita-wound Skin Appearance) Rubor -Temperature (Teresita-wound Skin No Abnormality Appearance) (Pt Warm) -Tenderness on Palpation (Teresita-wound No Skin Appearance) -Ulcer Cleansing Wound Cleanser -Foul Odor after Cleansing No -Anesthetic Used 5% Lidocaine Gel #6- L 3RD TOE -Current Size (cm) - Length 0.2 -Current Size (cm) - Width 0.8 -Current Size (cm) - Depth 0.1 -Total Square Cm 0.16 -Photo Taken No -Exudate Amt None Present -Wound Margin Flat & Intact -Granulation Amt None Present (0 %) -Slough/Fibrin No -Necrosis Amt Small (1-33%) -Necrotic Tissue Type Adherent Slough -Structure Exposed N/A -Texture (Teresita-wound Skin Appearance) Scarring -Moisture (Teresita-wound Skin Appearance Dry/Scaly ) -Color (Teresita-wound Skin Appearance) Rubor -Temperature (Teresita-wound Skin No Abnormality Appearance) (Pt Warm) -Tenderness on Palpation (Teresita-wound No Skin Appearance) -Ulcer Cleansing Wound Cleanser -Foul Odor after Cleansing No -Anesthetic Used 5% Lidocaine Gel #5- L 2ND TOE -Current Size (cm) - Length 0.9 -Current Size (cm) - Width 0.6 -Current Size (cm) - Depth 0.1 -Total Square Cm 0.54 -Photo Taken No -Exudate Amt None Present -Wound Margin Thickened -Granulation Amt None Present (0 %) -Necrosis Amt Small (1-33%) -Necrotic Tissue Type Adherent Slough -Structure Exposed N/A -Texture (Teresita-wound Skin Appearance) No Abnormality, Scarring -Moisture (Teresita-wound Skin Appearance Dry/Scaly ) -Color (Teresita-wound Skin Appearance) No Abnormality, Rubor -Temperature (Teresita-wound Skin No Abnormality Appearance) (Pt Warm) -Tenderness on Palpation (Teresita-wound No Skin Appearance) -Ulcer Cleansing Wound Cleanser -Foul Odor after Cleansing No -Anesthetic Used 5% Lidocaine Gel #4- L GR TOE -Current Size (cm) - Length 1.3 -Current Size (cm) - Width 1.3 -Current Size (cm) - Depth 0.1 -Total Square Cm 1.69 -Photo Taken No -Exudate Amt None Present -Wound Margin Thickened -Granulation Amt None Present (0 %) -Necrosis Amt Large (67-100%) -Necrotic Tissue Type Eschar -Structure Exposed N/A -Texture (Teresita-wound Skin Appearance) No Abnormality, Scarring -Moisture (Teresita-wound Skin Appearance Dry/Scaly ) -Color (Teresita-wound Skin Appearance) Rubor -Temperature (Teresita-wound Skin No Abnormality Appearance) (Pt Warm) -Tenderness on Palpation (Teresita-wound Yes Skin Appearance) -Ulcer Cleansing Wound Cleanser -Foul Odor after Cleansing No -Anesthetic Used 5% Lidocaine Gel #3- R BKA MEDIAL SITE -Current Size (cm) - Length 1.1 -Current Size (cm) - Width 3.5 -Current Size (cm) - Depth 0.1 -Total Square Cm 3.85 -Photo Taken No -Exudate Amt None Present -Wound Margin Thickened -Granulation Amt None Present (0 %) -Necrosis Amt Large (67-100%) -Necrotic Tissue Type Adherent Slough -Structure Exposed N/A -Texture (Teresita-wound Skin Appearance) Scarring -Moisture (Teresita-wound Skin Appearance No Abnormality ) -Color (Teresita-wound Skin Appearance) Rubor -Temperature (Teresita-wound Skin No Abnormality Appearance) (Pt Warm) -Tenderness on Palpation (Teresita-wound Yes Skin Appearance) -Ulcer Cleansing Wound Cleanser -Foul Odor after Cleansing No -Anesthetic Used 4% Lidocaine Solution #2- R BKA MIDLINE -Current Size (cm) - Length 0.2 -Current Size (cm) - Width 0.2 -Current Size (cm) - Depth 0.2 -Total Square Cm 0.04 -Exudate Amt None Present -Wound Margin Flat & Intact -Granulation Amt Small (1-33%) -Granulation Quality [place] -Necrosis Amt None Present (0 %) -Structure Exposed N/A -Texture (Teresita-wound Skin Appearance) No Abnormality -Moisture (Teresita-wound Skin Appearance No Abnormality ) -Color (Teresita-wound Skin Appearance) No Abnormality -Temperature (Teresita-wound Skin No Abnormality Appearance) (Pt Warm) -Tenderness on Palpation (Teresita-wound No Skin Appearance) -Ulcer Cleansing Wound Cleanser -Foul Odor after Cleansing No -Anesthetic Used 4% Lidocaine Solution #1- R BKA LAT SITE -Current Size (cm) - Length 2 -Current Size (cm) - Width 4.4 -Current Size (cm) - Depth 0.4 -Total Square Cm 8.8 -Photo Taken No -Exudate Amt Medium -Exudate Type Serosanguineous -Wound Margin Distinct, Outline Attached -Granulation Amt Small (1-33%) -Granulation Quality [place] -Necrosis Amt Medium (34-66%) -Necrotic Tissue Type Adherent Slough -Structure Exposed N/A -Texture (Teresita-wound Skin Appearance) Scarring -Moisture (Teresita-wound Skin Appearance No Abnormality ) -Color (Teresita-wound Skin Appearance) Erythema,Rubor -Temperature (Teresita-wound Skin No Abnormality Appearance) (Pt Warm) -Tenderness on Palpation (Teresita-wound No Skin Appearance) -Ulcer Cleansing Wound Cleanser -Foul Odor after Cleansing No -Anesthetic Used 4% Lidocaine Solution WC - Nurse 2 - General Ulcer CM Notes Start: 11/20/19 15:42 Freq: Status: Active Protocol: Activity Type Activity Date Activity User E-Sign Co-Sign Detail Recorded Client Recorded Date Recorded By Document 12/04/19 14:57 [id number] 12/04/19 15:04 12/04/19 14:57 Wound Center Nurse 2 [Procedure/Treatment] #7- L HEEL -Correct Patient No -Correct Side, Site, Position No -Correct Procedure No -Procedure Performed No -Wound/Ulcer Outcome Not Healed #6- L 3RD TOE -Correct Patient No -Correct Side, Site, Position No -Correct Procedure No -Procedure Performed No -Wound/Ulcer Outcome Not Healed #5- L 2ND TOE -Correct Patient No -Correct Side, Site, Position No -Correct Procedure No -Procedure Performed No -Wound/Ulcer Outcome Not Healed #4- L GR TOE -Correct Patient No -Correct Side, Site, Position No -Correct Procedure No -Procedure Performed No -Wound/Ulcer Outcome Not Healed #3- R BKA MEDIAL SITE -Time 14:58 -Correct Patient Yes -Correct Side, Site, Position Yes -Correct Procedure Yes -Procedure Performed Yes -Type of Procedure Debridement -Clinical Debridement Muscle -Post Debridement Size (cm) - Length 1.0 -Post Debridement Size (cm) - Width 3.0 -Post Debridement Size (cm) - Depth 0.1 -Total Square Cm 3.00 -Wound/Ulcer Outcome Not Healed -Ulcer Cleansing Rinsed/ Irrigated with Saline -Foul Odor after Cleansing No -Bioengineered Tissue No -Bleeding Controlled with Pressure -Offloading No -Treatment Response Procedure Tolerated Well #2- R BKA MIDLINE -Time 14:58 -Correct Patient Yes -Correct Side, Site, Position Yes -Correct Procedure Yes -Procedure Performed Yes -Type of Procedure Debridement -Clinical Debridement Muscle -Post Debridement Size (cm) - Length 0.4 -Post Debridement Size (cm) - Width 0.4 -Post Debridement Size (cm) - Depth 0.1 -Total Square Cm 0.16 -Wound/Ulcer Outcome Not Healed -Ulcer Cleansing Rinsed/ Irrigated with Saline -Foul Odor after Cleansing No -Bioengineered Tissue No -Bleeding Controlled with Pressure -Offloading No -Treatment Response Procedure Tolerated Well #1- R BKA LAT SITE -Time 15:00 -Correct Patient Yes -Correct Side, Site, Position Yes -Correct Procedure Yes -Procedure Performed Yes -Type of Procedure Debridement -Clinical Debridement Muscle -Post Debridement Size (cm) - Length 2.8 -Post Debridement Size (cm) - Width 4.3 -Post Debridement Size (cm) - Depth 4.4 -Total Square Cm 12.04 -Wound/Ulcer Outcome Not Healed -Ulcer Cleansing Rinsed/ Irrigated with Saline -Foul Odor after Cleansing No -Bioengineered Tissue No -Bleeding Controlled with Pressure -Offloading No -Treatment Response Procedure Tolerated Well [See Physician Procedure note for Specifics] Pain Scale: 0-10 Numeric [Pain] -Is Patient Pain Free? Yes Musculoskeletal: Muscle Wasting, - Neurological: - - He has altered sensation to bilateral lower extremities including hypersensitivity with light touch Psych/Mental Status: Normal Affect, Appropriate, - - Lethargic and intermittently engaged in the examination. This is consistent with prior exams Debridement Note Post-Debridement Measurements/Treatment WC - Nurse 2 - General Ulcer CM Notes Start: 11/20/19 15:42 Freq: Status: Active Protocol: Activity Type Activity Date Activity User E-Sign Co-Sign Detail Recorded Client Recorded Date Recorded By Document 11/20/19 17:44 PL [id number] 11/20/19 17:53 PL Document 11/27/19 16:32 [id number] 11/27/19 16:37 Document 12/04/19 14:57 [id number] 12/04/19 15:04 11/20/19 11/27/19 12/04/19 17:44 16:32 14:57 Wound Center Nurse 2 #7- L HEEL -Time 16:47 -Correct Patient Yes No No -Correct Side, Site, Position Yes No No -Correct Procedure Yes No No -Procedure Performed Yes No No -Type of Procedure Debridement -Clinical Debridement Subcutaneous -Post Debridement Size (cm) - Length 1.1 -Post Debridement Size (cm) - Width 0.4 -Post Debridement Size (cm) - Depth 0.4 -Total Square Cm 0.44 -Wound/Ulcer Outcome Not Healed Not Healed Not Healed -Ulcer Cleansing Rinsed/ Irrigated with Saline -Foul Odor after Cleansing No -Bleeding Controlled with Pressure -Treatment Response Procedure Tolerated Well #6- L 3RD TOE -Time 16:47 -Correct Patient Yes No No -Correct Side, Site, Position Yes No No -Correct Procedure Yes No No -Procedure Performed Yes No No -Type of Procedure Debridement -Clinical Debridement Subcutaneous -Post Debridement Size (cm) - Length 0.2 -Post Debridement Size (cm) - Width 1.2 -Post Debridement Size (cm) - Depth 0.2 -Total Square Cm 0.24 -Wound/Ulcer Outcome Not Healed Not Healed Not Healed -Ulcer Cleansing Rinsed/ Irrigated with Saline -Foul Odor after Cleansing No -Bleeding Controlled with Pressure -Treatment Response Procedure Tolerated Well #5- L 2ND TOE -Time 16:47 -Correct Patient Yes No No -Correct Side, Site, Position Yes No No -Correct Procedure Yes No No -Procedure Performed Yes No No -Type of Procedure Debridement -Clinical Debridement Subcutaneous -Post Debridement Size (cm) - Length 1.1 -Post Debridement Size (cm) - Width 0.8 -Post Debridement Size (cm) - Depth 0.2 -Total Square Cm 0.88 -Wound/Ulcer Outcome Not Healed Not Healed Not Healed -Ulcer Cleansing Rinsed/ Irrigated with Saline -Foul Odor after Cleansing No -Bleeding Controlled with Pressure -Treatment Response Procedure Tolerated Well #4- L GR TOE -Time 16:47 -Correct Patient Yes No No -Correct Side, Site, Position Yes No No -Correct Procedure Yes No No -Procedure Performed Yes No No -Type of Procedure Debridement -Clinical Debridement Subcutaneous -Post Debridement Size (cm) - Length 1.8 -Post Debridement Size (cm) - Width 2 -Post Debridement Size (cm) - Depth 0.1 -Total Square Cm 3.6 -Wound/Ulcer Outcome Not Healed Not Healed Not Healed -Ulcer Cleansing Rinsed/ Irrigated with Saline -Foul Odor after Cleansing No -Bleeding Controlled with Pressure -Treatment Response Procedure Tolerated Well #3- R BKA MEDIAL SITE -Time 16:47 14:58 -Correct Patient Yes No Yes -Correct Side, Site, Position Yes No Yes -Correct Procedure Yes No Yes -Procedure Performed Yes No Yes -Type of Procedure Debridement Debridement -Clinical Debridement Subcutaneous Muscle -Post Debridement Size (cm) - Length 2.0 1.0 -Post Debridement Size (cm) - Width 3.7 3.0 -Post Debridement Size (cm) - Depth 0.2 0.1 -Total Square Cm 7.40 3.00 -Wound/Ulcer Outcome Not Healed Not Healed Not Healed -Ulcer Cleansing Rinsed/ Rinsed/ Irrigated with Irrigated with Saline Saline -Foul Odor after Cleansing No No -Bioengineered Tissue No -Bleeding Controlled with Pressure Pressure -Offloading No -Treatment Response Procedure Procedure Tolerated Well Tolerated Well #2- R BKA MIDLINE -Time 16:47 14:58 -Correct Patient Yes No Yes -Correct Side, Site, Position Yes No Yes -Correct Procedure Yes No Yes -Procedure Performed Yes No Yes -Type of Procedure Debridement Debridement -Clinical Debridement Subcutaneous Muscle -Post Debridement Size (cm) - Length 0.4 0.4 -Post Debridement Size (cm) - Width 0.6 0.4 -Post Debridement Size (cm) - Depth 0.3 0.1 -Total Square Cm 0.24 0.16 -Wound/Ulcer Outcome Not Healed Not Healed Not Healed -Ulcer Cleansing Rinsed/ Rinsed/ Irrigated with Irrigated with Saline Saline -Foul Odor after Cleansing No No -Bioengineered Tissue No -Bleeding Controlled with Pressure Pressure -Offloading No -Treatment Response Procedure Procedure Tolerated Well Tolerated Well #1- R BKA LAT SITE -Time 16:47 15:00 -Correct Patient Yes No Yes -Correct Side, Site, Position Yes No Yes -Correct Procedure Yes No Yes -Procedure Performed Yes No Yes -Type of Procedure Debridement Debridement -Clinical Debridement Subcutaneous Muscle -Post Debridement Size (cm) - Length 2.4 2.8 -Post Debridement Size (cm) - Width 5.1 4.3 -Post Debridement Size (cm) - Depth 0.7 4.4 -Total Square Cm 12.24 12.04 -Wound/Ulcer Outcome Not Healed Not Healed Not Healed -Ulcer Cleansing Rinsed/ Rinsed/ Irrigated with Irrigated with Saline Saline -Foul Odor after Cleansing No No -Bioengineered Tissue No -Bleeding Controlled with Pressure Pressure -Offloading No -Treatment Response Procedure Procedure Tolerated Well Tolerated Well Pain Scale: 0-10 Numeric Is Patient Pain Free? Yes Yes Yes Wound debrided: all sites Laterality: Left Type of Debridement: Selective debridement Anesthesia Used: 5% Lidocaine Gel Depth: Down to and including healthy tissue Percentage of wound debrided: 90 Instrument Used: #15 blade Tissue Removed: fibrous, devitalized moist eschar, biofilm, slough Severity: Limited To Skin Breakdown Amount of bleeding with debridement: None Patient tolerated procedure well - Additional Wound Wound debrided: medial stump site Laterality: Right Type of Debridement: Excisional debridement Anesthesia Used: 5% Lidocaine Gel Depth: in the subcutaneous layer Percentage of wound debrided: 100 Instrument Used: #15 blade, Forceps Tissue Removed: fibrous, devitalized subcutaneous, biofilm, slough Severity: Fat Layer Exposed Amount of bleeding with debridement: Mild Bleeding Controlled with: Pressure Patient tolerated procedure: Patient tolerated procedure well - Additional Wound Wound debrided: central and lateral stump site Laterality: Right Type of Debridement: Excisional debridement Anesthesia Used: 5% Lidocaine Gel Depth: in the subcutaneous layer Percentage of wound debrided: 100 Instrument Used: #15 blade Tissue Removed: fibrous, devitalized subcutaneous, biofilm, slough Severity: Fat Layer Exposed Amount of bleeding with debridement: Mild Bleeding Controlled with: Pressure Patient tolerated procedure: Patient tolerated procedure well Assessment/Plan Clinical Impression(s) from Imaging Studies Foot X-Ray 11/27/19 15:15 IMPRESSION: 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 Electronically Signed: Mihai Crooks MD at 8:52 EDT , Service support , Tibia/Fibula X-Ray 11/27/19 15:23 IMPRESSION: Tricompartmental arthrosis with nonspecific induration of the subcutaneous fat but no erosive osseous lesion, fracture, or subcutaneous emphysema noted. Nonspecific induration of the subcutaneous fat Tricompartmental arthrosis The end of the remaining fibula shows an irregular and ill-defined border on the AP film. This is of uncertain significance since the lateral film shows the end of the more smooth and regular. Electronically Signed: Mihai Crooks MD at 8:56 EDT , Service support , Active Problems (Last Reviewed 09/12/19 @ 08:[address] Kyara King, DO) Other specified peripheral vascular diseases (Acute) Cellulitis of right lower limb (Acute) Non-pressure chronic ulcer of unspecified part of right lower leg with fat layer exposed (Chronic) Non-pressure chronic ulcer of other part of left foot with fat layer exposed (Chronic) Right leg pain (Acute) Ulcer of right lower extremity with necrosis of muscle (Acute) Assessment: Right below-knee amputation stump ulcers medial, central, lateral right with cellulitis, grade 3 and nonhealing surgical site. Concern of osteomyelitis developement. Cellulitis right lower extremity. Right ulcers left second toe, third toe, and heel without infection. Peripheral vascular disease. Uncontrolled diabetes. Other comorbidities. Malnutrition Plan: I reviewed and discussed his case. The etiology of the ulcers and components of a comprehensive wound healing plan were reviewed. Selective debridement was performed on the left foot and he tolerated this. Local anesthetic injection was administered to the right ulcer stump site after alcohol cleanse, 10 cc of 2% lidocaine plain was administered subdermally in any of the block fashion to the central ulcer site. Excisional debridement was performed to remove devitalized muscle and subcutaneous tissue, fibrous, biofilm and slough. It is noted this does probe to bone and the entire wound bed is demonstrating a worse status. Per chart review it is also noted he had surgery prior to August 2019 [facility] including a right below-knee amputation. This patient was advised to follow-up with his surgeon and I would like to review his case prior to proceeding with additional amputation management of the surgical site. He is scheduled to follow-up with Dr. Gordo Figueroa this upcoming Monday. Again I am concerned about the devitalized tissue and the deep communication given the surgery was not performed in the immediate past. Cultures were previously obtained. He has MRSE, GPR, anaerobic, and enterococcus growth. He will continue on Augmentin and Linezolid will now be added. Infectious disease saw this patient today and the recommendations are greatly appreciated. He was advised to continue. He has been changing the dressing with Betadine and this has significantly dried up the ulcer bed. To continue. His labs from 11-09-2019 were reviewed with a white blood cell count of 9.1, ESR 77, and a hemoglobin A1c of 7.0%. Offloading was advised via light compression and elevation to the right below-knee amputation stump site to reduce edema. He also reports he sleeps on his stomach which presses right on the ulcer and delayed surgical healing site. I advised him not to do this. I recommend he either lays on his back or side. If he is unable to do this I also offered him to offload this site by hanging his leg over pillows or using a donut pillow. He was advised to continue with his offloading PRAFO boot on the left lower extremity to avoid heel pressure and to avoid wearing shoe gear that presses on his toe ulcers. I am highly concerned that his vascular status is compromised and deteriorating. His previous vascular intervention per chart review was noted. I recommend he follows up with his vascular surgeon Dr. Weinstein. I recommend nutritional supplementation including Thong and a well- balanced nutritious diet. I recommend updating some the diagnostic data including right leg x-rays and left foot x-rays. There is no soft tissue emphysema, foreign body, acute destruction to the distal tibia which was the area where there was probing to bone. The radiology report does describe an irregular border of the fibula and it is not clear if this was surgical or a late bone development. Vascular calcification is seen on x-ray. The left foot x-rays are unremarkable for any acute injury or infection. Vascular calcification is also seen on the left foot x-ray.. To follow-up with the wound healing center in 1 week. I did receive multiple medical records and the information is incorporated into this note. To call the office immediately or report to the emergency room if his local or systemic signs of infection progress. I answered all of his questions. I answered all of his family's questions. I reviewed his medical records from [facility] as the following: He was admitted for a right foot infection and gangrene in early August 2019. 08-22-2019: He had a culture of the Right foot including mixed javier on 08-22-2019. MRI of the foot demonstrated necrosis and potential early osteomyelitis of the toes there is also foci of air in the entire foot. He had an arterial ultrasound demonstrating a right BECKI of 0.29 and toe brachial index of 0.0. The left BECKI was 1.91 and toe brachial index was 0.0. 08-23-2019: Hemoglobin A1c 9.8, he had a [facility] with Dr. Gordo Figueroa MD. 08-28-2019: Angiogram bilateral lower extremity runoff performed by Yadi Mata MD. a nuclear medicine stress test was also performed which was normal and he also had a normal EKG with no signs of ischemia. 08-29-2019 aortogram with bilateral lower extremity runoff demonstrated significant stenosis and partial occlusion of the right common femoral artery and bilateral superficial femoral artery occlusion. The right below-knee popliteal artery was identified with two-vessel runoff to the foot. On the left lower extremity there was reconstitution at the above-knee popliteal area. 09-02-2019 right femoral enterectomy with popliteal angioplasty performed. 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 Finn Beltran. The doctors on file the provided treatment for him well [facility] include Dr. Gonzalez for hospital management, Dr. Badillo, Dr. Beltran, Dr. Figueroa. *Over 40 minutes was spent on this [id number] encounter including evaluation, treatment, management, education, chart review, and care coordination. I answered all of his questions. . MACRA 2019. Reviewed today medication and allergy profile reviewed and reconciled. Reviewed 11-19-3029: BMI elevated at 26.7 and he was advised to follow-up with his primary care physician. Diet and activity recommendations were made for healing optimization and improved health. Blood pressure is elevated at 150/69. He was advised to follow-up with his primary c are physician. He is a noted fall risk with suspected multiple falls this past year. He was advised to maintain a nonweightbearing status in a wheelchair. His recent stay at the rehabilitation unit is noted and he is already under going and exercise program for this condition. He is a current nontobacco user. His prior history of tobacco use is noted. He does not have a living will on file. He reports updated influenza immunization.
--- NOTE | 2019-12-04 16:40 | PCM.PN.ID ---
Patient Problems: Active and Suspected Problems (Last Reviewed 09/12/19 @ 08:[address] Kyara King DO) Other specified peripheral vascular diseases (Acute) Cellulitis of right lower limb (Acute) Right leg pain (Acute) Ulcer of right lower extremity with necrosis of muscle (Acute) Subjective: Feeling ok, on augmentin, no fever, no n/v/d, RLE wound less red. - Physical Exam Vitals/I&O's: Vital Signs Temp Pulse Resp BP 97.6 F L 89 18 150/89 H 12/04/19 14:09 12/04/19 14:09 12/04/19 14:09 12/04/19 14:09 Oxygen Delivery Method Room Air Weight: 84.368 kg Body Mass Index (BMI) 26.6 General: Alert, Cooperative, No apparent distress Lungs: Clear to auscultation, Normal air movement Cardiovascular: Regular rate, Regular Rhythm Abdomen: Soft, Non Tender, Non-Distended Skin: Ulcer/ Wound - Lateral RLE BKA stump with purulence, deep involvement Medical Necessity - Tobacco Use Smoking Status: Former smoker Tobacco Use: Non-smoker Route of nutrition/ use of supplements: [] Nutritional Intake: [] IV Site: [] Diamond Catheter: [] - Assessment/Plan Antibiotics: [] Assessment/Plan: [] Active and Suspected Problems (Last Reviewed 09/12/19 @ 08:[address] Kyara King DO) Other specified peripheral vascular diseases (Acute) Cellulitis of right lower limb (Acute) Right leg pain (Acute) Ulcer of right lower extremity with necrosis of muscle (Acute) Concern for RLE osteo at site of BKA - wound now probes to bone per Dr. Peng. Recent wound cx with enterococcus, MRSE, GPR, and anaerobes. On augmentin, will add linezolid. He is to be scheduled to see ortho for surgical debridement. ID followup in 2 weeks, d/w Dr. Peng.
== END 2019-12-17 23:59 ==
LOC: WC 14:45
PROVIDERS: PCP Family Medicine Geriatric Medicine; Visit Provider Podiatrist
DX: E11.621 Type 2 diabetes mellitus with foot ulcer (principal); T87.89 Other complications of amputation stump; Y83.8 Other surgical procedures as the cause of abnormal reaction of the patient, or of later complication, without mention of misadventure at the time of the procedure; L97.812 Non-pressure chronic ulcer of other part of right lower leg with fat layer exposed; L03.115 Cellulitis of right lower limb; L97.522 Non-pressure chronic ulcer of other part of left foot with fat layer exposed; L97.422 Non-pressure chronic ulcer of left heel and midfoot with fat layer exposed; I25.10 Atherosclerotic heart disease of native coronary artery without angina pectoris; E11.65 Type 2 diabetes mellitus with hyperglycemia; E03.9 Hypothyroidism, unspecified; E78.5 Hyperlipidemia, unspecified; Z87.891 Personal history of nicotine dependence; I10 Essential (primary) hypertension; Z79.899 Other long term (current) drug therapy; E55.9 Vitamin D deficiency, unspecified; Z79.4 Long term (current) use of insulin; E11.51 Type 2 diabetes mellitus with diabetic peripheral angiopathy without gangrene
CPT/HCPCS: 11042; 11043; 73590; 73630; 87070; 87075; 87077; 87186; 87205; 87640; 97597; 99212; 99215; G0463

== ENCOUNTER → 2020-01-03 15:01 | Outpatient (CLI) | payer MEDICARE, SELFPAY ==
[2019-12-04 14:09] VITALS: BMI 26.6
--- NOTE | 2020-01-03 15:15 | RAD_ITS ---
STUDY: X-RAY - LEFT KNEE REASON FOR EXAM: Male, 79 years old. LEFT KNEE PAIN WHEN STANDING X A FEW WEEKS TECHNIQUE: 4 view(s) of the knee. COMPARISON: None. FINDINGS: Normal visualized distal femur. Normal visualized proximal tibia and fibula. Normal proximal tibiofibular articulation. There is moderate degenerative arthrosis of the medial femorotibial compartment with moderate joint space narrowing. There is mild degenerative arthrosis of the lateral femorotibial compartment. There is mild to moderate degenerative arthrosis of the patellofemoral articulation. There are atherosclerotic calcifications. RAD/Knee 4 or More Views IMPRESSION: Degenerative changes. Atherosclerosis. Electronically Signed: Nevaeh Mcmahon MD at 15:40 EDT Tel , Service support ,
== END ==
PROVIDERS: PCP Family Medicine Geriatric Medicine; Referring Provider Family Medicine Geriatric Medicine; Visit Provider Family Medicine Geriatric Medicine
DX: M25.562 Pain in left knee (principal)
CPT/HCPCS: 73564

== ENCOUNTER 2020-01-15 09:54 | Outpatient (RCR) | payer MEDICARE, SELFPAY ==
[2020-01-15 10:10] VITALS: BP 133/71; PULSE 81; RESP 18; TEMP 36.1; BMI 26.6
--- NOTE | 2020-01-15 10:34 | PN.PCM_ITS ---
(1) Pressure ulcer, heel, left, unstageable Status: Acute Current Visit: Yes Code(s): L89.620 - Pressure ulcer of left heel, unstageable (2) Peripheral vascular disease Status: Chronic Current Visit: Yes Code(s): I73.9 - Peripheral vascular disease, unspecified (3) Malnutrition Status: Resolved Current Visit: Yes Code(s): E46 - Unspecified protein- calorie malnutrition Comment: protein calorie malnutrition at admission (4) Non-pressure chronic ulcer of other part of left foot with fat layer exposed Status: Chronic Current Visit: No Code(s): L97.522 - Non-pressure chronic ul cer of other part of left foot with fat layer exposed Type of Wound Date of Service: 01/15/20 Chief Complaint: Right amputation stump ulcers. Left foot multiple ulcers History of Wound: This 79-year-old male with multiple comorbidities including diabetes, peripheral vascular disease, CAD, and others was seen for bilateral lower extremity ulcers. He did previously have documentation of a right below-knee amputation that was performed [facility] with Dr. Gordo Figueroa. He did follow-up and had a revisional surgery. He has a wound VAC in place and already has a follow-up appointment scheduled with his surgeon and home health is assisting him with wound VAC changes at home. I am seeing him today strictly for the left foot. He also has a vascular surgeon follow-up with Dr. Finn Beltran MD in approximately 1 month. His prior intervention is noted. He is with his daughter today. They have been applying a moistened gauze to the left foot ulcer sites. He has not been wearing his offloading PRAFO boot that he obtained while he was in the rehabilitation unit. Progress of Wound: Stable left - Physical Exam Vital Signs Temp Pulse Resp BP 97 F L 81 18 133/71 H 01/15/20 10:10 01/15/20 10:10 01/15/20 10:10 01/15/20 10:10 General: Alert, Oriented x3, Cooperative, No apparent distress Extremities: No cyanosis, No edema, Capillary Refill Less than 3 Seconds, No Calf Tenderness, Diminished Peripheral Pulses, - Skin: Ulcer/ Wound - Dry stable eschar with some moistened border dorsal hallux and medial second toe. Dry 100% stable eschar dorsal third toe and posterior heel. There is no bogginess or fluctuance on palpation. His adjacent skin is atrophic, hairless, and very dry. No interdigital maceration erythema streaking purulence or deep probing or tissue exposure noted. Wound Measurements and Assessment WC - Nurse 1 - General Ulcer Measurement Start: 01/15/20 10:03 Freq: Status: Active Protocol: Activity Type Activity Date Activity User E-Sign Co-Sign Detail Recorded Client Recorded Date Recorded By Document 01/15/20 10:10 DL [id number] 01/15/20 10:23 DL 01/15/20 10:10 Wound Center Nurse 1 [Ulcer Assessment] #11 L Heel -Current Size (cm) - Length 0.7 -Current Size (cm) - Width 0.5 -Current Size (cm) - Depth 0.1 -Total Square Cm 0.35 -Photo Taken Yes -Exudate Amt None Present -Wound Margin Thickened -Granulation Amt None Present (0 %) -Necrosis Amt Small (1-33%) -Necrotic Tissue Type Eschar -Structure Exposed N/A -Texture (Teresita-wound Skin Appearance) No Abnormality -Moisture (Teresita-wound Skin Appearance Dry/Scaly ) -Color (Teresita-wound Skin Appearance) No Abnormality -Temperature (Teresita-wound Skin No Abnormality Appearance) (Pt Warm) -Tenderness on Palpation (Teresita-wound No Skin Appearance) -Foul Odor after Cleansing No #10 L 3rd Toe -Current Size (cm) - Length 0.1 -Current Size (cm) - Width 5 -Current Size (cm) - Depth 0.1 -Total Square Cm 0.5 -Photo Taken Yes -Exudate Amt None Present -Wound Margin Epibole -Granulation Amt None Present (0 %) -Necrosis Amt Small (1-33%) -Necrotic Tissue Type Eschar -Structure Exposed N/A -Texture (Teresita-wound Skin Appearance) Scarring -Moisture (Teresita-wound Skin Appearance Dry/Scaly ) -Color (Teresita-wound Skin Appearance) No Abnormality -Temperature (Teresita-wound Skin No Abnormality Appearance) (Pt Warm) -Tenderness on Palpation (Teresita-wound No Skin Appearance) -Foul Odor after Cleansing No #9 L @nd Toe -Current Size (cm) - Length 0.8 -Current Size (cm) - Width 0.1 -Current Size (cm) - Depth 0.1 -Total Square Cm 0.08 -Photo Taken Yes -Exudate Amt None Present -Wound Margin Thickened -Granulation Amt None Present (0 %) -Necrosis Amt Small (1-33%) -Necrotic Tissue Type Eschar -Structure Exposed N/A -Texture (Teresita-wound Skin Appearance) No Abnormality -Moisture (Teresita-wound Skin Appearance Dry/Scaly ) -Color (Teresita-wound Skin Appearance) No Abnormality -Temperature (Teresita-wound Skin No Abnormality Appearance) (Pt Warm) -Tenderness on Palpation (Teresita-wound No Skin Appearance) -Foul Odor after Cleansing No #8 L Grt Toe -Current Size (cm) - Length 1.5 -Current Size (cm) - Width 1.9 -Current Size (cm) - Depth 0.1 -Total Square Cm 2.85 -Photo Taken Yes -Exudate Amt None Present -Wound Margin Thickened -Granulation Amt None Present (0 %) -Necrosis Amt Large (67-100%) -Necrotic Tissue Type Eschar -Structure Exposed N/A -Texture (Teresita-wound Skin Appearance) Scarring -Moisture (Teresita-wound Skin Appearance Dry/Scaly ) -Color (Teresita-wound Skin Appearance) No Abnormality -Temperature (Teresita-wound Skin No Abnormality Appearance) (Pt Warm) -Tenderness on Palpation (Teresita-wound No Skin Appearance) -Foul Odor after Cleansing No Musculoskeletal: Muscle Wasting, - - Right below-knee amputation. Dorsal contraction of lesser toes left. Hypersensitivity to touch Neurological: Sensory exam intact to light touch and pain - Hypersensitivity Psych/Mental Status: Normal Affect, Appropriate Debridement Note Wound debrided: dorsal hallux, medial second toe Laterality: Left Type of Debridement: Selective debridement Anesthesia Used: 5% Lidocaine Gel Depth: Down to and including healthy tissue Percentage of wound debrided: 100 Instrument Used: #15 blade, Forceps Tissue Removed: fibrous, devitalized tissue, eschar, biofilm, slough Severity: Limited To Skin Breakdown Amount of bleeding with debridement: Mild Bleeding Controlled with: Pressure Patient tolerated procedure well Assessment/Plan Active Problems (Last Reviewed 09/12/19 @ 08:[address] Kyara King DO) Peripheral vascular disease (Chronic) Pressure ulcer, heel, left, unstageable (Acute) Assessment: Right below-knee amputation -following with orthopedic surgeon at [facility]. Left unstageable heel ulcer, no infection. Left first, second, third toe ulcers, no infection, eschars. Peripheral vascular disease. Uncontrolled diabetes. Other comorbidities. Malnutrition Plan: I reviewed and discussed his case. The etiology of the ulcers and components of a comprehensive wound healing plan were reviewed. Selective debridement was performed on the left foot (first and second toes) and he tolerated this. I recommend application of Santyl applied nickel thickness daily. His daughter reports she is able to help with this and already has Santyl at home. To resume PRAFO boot to offload heel while resting in bed or seated throughout the day. To avoid wearing shoes that press on the toes. The right limb is noted in the wound VAC is intact without adjacent infection signs are leaking. He will be followed by his surgeon for this right lower extremity condition. His previous vascular intervention per chart review was noted. I recommend nutritional supplementation including Thong and a well-balanced nutritious diet. The left foot x-rays are unremarkable for any acute injury or infection. Vascular calcification is also seen on the left foot x-ray. To follow-up with the wound healing center in 1 to 2 weeks. I answered all of his questions. I answered all of his family's questions. . I reviewed his medical records from [facility] as the following: He was admitted for a right foot infection and gangrene in early August 2019. 08-22-2019: He had a culture of the Right foot including mixed javier on 08-22-2019. MRI of the foot demonstrated necrosis and potential early osteomyelitis of the toes there is also foci of air in the entire foot. He had an arterial ultrasound demonstrating a right BECKI of 0.29 and toe brachial index of 0.0. The left BECKI was 1.91 and toe brachial index was 0.0. 08-23-2019: Hemoglobin A1c 9.8, he had a right below-knee amputation guillotine style with Dr. Gordo Figueroa MD. 08-28-2019: Angiogram bilateral lower extremity runoff performed by Yadi Mata MD. a nuclear medicine stress test was also performed which was normal and he also had a normal EKG with no signs of ischemia. 08-29-2019 aortogram with bilateral lower extremity runoff demonstrated significant stenosis and partial occlusion of the right common femoral artery and bilateral superficial femoral artery occlusion. The right below-knee popliteal artery was identified with two-vessel runoff to the foot. On the left lower extremity there was reconstitution at the above-knee popliteal area. 09-02-2019 right femoral enterectomy with popliteal angioplasty performed. 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 Finn Beltran. The doctors on file the provided treatment for him well [facility] include Dr. Gonzalez for hospital management, Dr. Badillo, Dr. Beltran, Dr. Figueroa. I answered all of his questions. . MACRA 2019. Reviewed today medication and allergy profile reviewed and reconciled. Reviewed 11-19-3029: BMI elevated at 26.7 and he was advised to follow-up with his primary care ph ysician. Diet and activity recommendations were made for healing optimization and improved health. Blood pressure is elevated at 150/69. He was advised to follow-up with his primary care physician. He is a noted fall risk with suspected multiple falls this past year. He was advised to maintain a nonweightbearing status in a wheelchair. His recent stay at the rehabilitation unit is noted and he is already under going and exercise program for this condition. He is a current nontobacco user. His prior history of tobacco use is noted. He does not have a living will on file. He reports updated influenza immunization.
== END 2020-01-17 23:59 ==
LOC: WC 09:54
PROVIDERS: PCP Family Medicine Geriatric Medicine; Referring Provider Podiatrist; Visit Provider Podiatrist
DX: L89.620 Pressure ulcer of left heel, unstageable (principal); E11.51 Type 2 diabetes mellitus with diabetic peripheral angiopathy without gangrene; Z89.511 Acquired absence of right leg below knee; I25.10 Atherosclerotic heart disease of native coronary artery without angina pectoris; E11.65 Type 2 diabetes mellitus with hyperglycemia
CPT/HCPCS: 97597; 99214; G0463

== ENCOUNTER 2020-02-12 11:00 | Outpatient (RCR) | payer MEDICARE, MEDICAID, SELFPAY ==
[2020-01-18 00:43] VITALS: BP 133/71; PULSE 81; RESP 18; TEMP 36.1
[2020-01-29 10:12] VITALS: BP 146/64; PULSE 89; RESP 18; TEMP 36.4; BMI 26.6
--- NOTE | 2020-01-29 22:00 | PN.PCM_ITS ---
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 He did previously have documentation of a right below-knee amputation that was performed [facility] with Dr. Gordo Figueroa. He did follow-up and had a revisional surgery. He has a wound VAC in place and already has a follow-up appointment scheduled with his surgeon and home health is assisting him with wound VAC changes at home. I am seeing him today strictly for the left foot. He also has a vascular surgeon follow-up with Dr. Finn Beltran MD in approximately 1 month. His prior intervention is noted. He is with his daughter today. They have been applying Santyl to the left foot ulcer sites. He has a follow-up with vascular surgery to from now. Progress of Wound: Stable left - Physical Exam Vital Signs Temp Pulse Resp BP 97.6 F L 89 18 146/64 H 01/29/20 10:12 01/29/20 10:12 01/29/20 10:12 01/29/20 10:12 General: Alert, Oriented x3, Cooperative, No apparent distress HEENT: Atraumatic Extremities: No cyanosis, Capillary Refill Less than 3 Seconds, No Calf Tenderness, Diminished Peripheral Pulses, Edema - Decreased Skin: Ulcer/ Wound - No purulence, erythema, streaking, odor, infection. Ulcer beds are fibrous with eschar. No deep probing to bone. Skin is very atrophic Wound Measurements and Assessment WC - Nurse 1 - General Ulcer Measurement Start: 01/29/20 10:12 Freq: Status: Active Protocol: Activity Type Activity Date Activity User E-Sign Co-Sign Detail Recorded Client Recorded Date Recorded By Document 01/29/20 10:12 PL [id number] 01/29/20 10:22 PL 01/29/20 10:12 Wound Center Nurse 1 [Ulcer Assessment] #11 L Heel -Combined with other wound No -Current Size (cm) - Length 0.7 -Current Size (cm) - Width 0.5 -Current Size (cm) - Depth 0.1 -Total Square Cm 0.35 -Photo Taken No -Tunneling No -Undermining/Tunneling No -Exudate Amt Small -Exudate Type Serosanguineous -Granulation Amt None Present (0 %) -Slough/Fibrin Yes -Necrosis Amt Large (67-100%) -Necrotic Tissue Type Eschar -Texture (Teresita-wound Skin Appearance) No Abnormality -Moisture (Teresita-wound Skin Appearance No Abnormality ) -Color (Teresita-wound Skin Appearance) No Abnormality -Temperature (Teresita-wound Skin No Abnormality Appearance) (Pt Warm) -Ulcer Cleansing Rinsed/ Irrigated with Saline -Foul Odor after Cleansing No -Anesthetic Used 4% Lidocaine Solution #10 L 3rd Toe -Combined with other wound No -Current Size (cm) - Length 0.3 -Current Size (cm) - Width 1 -Current Size (cm) - Depth 0.1 -Total Square Cm 0.3 -Photo Taken No -Epithelialization None Present -Tunneling No -Undermining/Tunneling No -Circular Undermining No -Exudate Amt None Present -Granulation Amt None Present (0 %) -Slough/Fibrin Yes -Necrosis Amt Large (67-100%) -Necrotic Tissue Type Eschar -Texture (Teresita-wound Skin Appearance) No Abnormality -Moisture (Teresita-wound Skin Appearance No Abnormality ) -Color (Teresita-wound Skin Appearance) No Abnormality -Temperature (Teresita-wound Skin No Abnormality Appearance) (Pt Warm) -Ulcer Cleansing Rinsed/ Irrigated with Saline -Foul Odor after Cleansing No #9 L @nd Toe -Combined with other wound No -Current Size (cm) - Length 0.5 -Current Size (cm) - Width 0.7 -Current Size (cm) - Depth 0.1 -Total Square Cm 0.35 -Photo Taken No -Epithelialization None Present -Tunneling No -Undermining/Tunneling No -Circular Undermining No -Exudate Amt None Present -Granulation Amt None Present (0 %) -Slough/Fibrin Yes -Necrosis Amt Large (67-100%) -Necrotic Tissue Type Eschar -Texture (Teresita-wound Skin Appearance) No Abnormality -Moisture (Teresita-wound Skin Appearance No Abnormality ) -Color (Teresita-wound Skin Appearance) No Abnormality -Temperature (Teresita-wound Skin No Abnormality Appearance) (Pt Warm) -Ulcer Cleansing Rinsed/ Irrigated with Saline -Foul Odor after Cleansing No -Anesthetic Used 4% Lidocaine Solution #8 L Grt Toe -Combined with other wound No -Current Size (cm) - Length 1.6 -Current Size (cm) - Width 1.6 -Current Size (cm) - Depth 0.1 -Total Square Cm 2.56 -Photo Taken No -Epithelialization None Present -Tunneling No -Undermining/Tunneling No -Circular Undermining No -Exudate Amt Small -Exudate Type Serosanguineous -Granulation Amt None Present (0 %) -Slough/Fibrin Yes -Necrosis Amt Large (67-100%) -Necrotic Tissue Type Eschar -Texture (Teresita-wound Skin Appearance) No Abnormality -Moisture (Teresita-wound Skin Appearance No Abnormality ) -Color (Teresita-wound Skin Appearance) No Abnormality -Temperature (Teresita-wound Skin No Abnormality Appearance) (Pt Warm) -Ulcer Cleansing Rinsed/ Irrigated with Saline -Foul Odor after Cleansing No -Anesthetic Used 4% Lidocaine Solution WC - Nurse 2 - General Ulcer CM Notes Start: 01/29/20 10:12 Freq: Status: Active Protocol: Activity Type Activity Date Activity User E-Sign Co-Sign Detail Recorded Client Recorded Date Recorded By Document 01/29/20 10:31 JAZMINE [id number] 01/29/20 10:35 01/29/20 10:31 Wound Center Nurse 2 [Procedure/Treatment] #11 L Heel -Time 10:31 -Correct Patient Yes -Correct Side, Site, Position Yes -Correct Procedure Yes -Procedure Performed Yes -Type of Procedure Debridement -Clinical Debridement Subcutaneous -Post Debridement Size (cm) - Length 0.8 -Post Debridement Size (cm) - Width 0.3 -Post Debridement Size (cm) - Depth 0.2 -Total Square (cm) 0.24 -Wound/Ulcer Outcome Not Healed -Ulcer Cleansing Rinsed/ Irrigated with Saline -Foul Odor after Cleansing No -Bioengineered Tissue No -Bleeding Controlled with Pressure -Offloading No -Treatment Response Procedure Tolerated Well #10 L 3rd Toe -Time 10:31 -Correct Patient Yes -Correct Side, Site, Position Yes -Correct Procedure Yes -Procedure Performed Yes -Type of Procedure Debridement -Clinical Debridement Subcutaneous -Post Debridement Size (cm) - Length 0.3 -Post Debridement Size (cm) - Width 1.0 -Post Debridement Size (cm) - Depth 0.1 -Total Square (cm) 0.30 -Wound/Ulcer Outcome Not Healed -Ulcer Cleansing Rinsed/ Irrigated with Saline -Foul Odor after Cleansing No -Bioengineered Tissue No -Bleeding Controlled with Pressure -Offloading No -Treatment Response Procedure Tolerated Well #9 L @nd Toe -Time 10:31 -Correct Patient Yes -Correct Side, Site, Position Yes -Correct Procedure Yes -Procedure Performed Yes -Type of Procedure Debridement -Clinical Debridement Subcutaneous -Post Debridement Size (cm) - Length 1.0 -Post Debridement Size (cm) - Width 0.8 -Post Debridement Size (cm) - Depth 0.2 -Total Square (cm) 0.80 -Wound/Ulcer Outcome Not Healed -Ulcer Cleansing Rinsed/ Irrigated with Saline -Foul Odor after Cleansing No -Bioengineered Tissue No -Bleeding Controlled with Pressure -Offloading No -Treatment Response Procedure Tolerated Well #8 L Grt Toe -Time 10:32 -Correct Patient Yes -Correct Side, Site, Position Yes -Correct Procedure Yes -Procedure Performed Yes -Type of Procedure Debridement -Clinical Debridement Subcutaneous -Post Debridement Size (cm) - Length 1.6 -Post Debridement Size (cm) - Width 1.8 -Post Debridement Size (cm) - Depth 0.2 -Total Square (cm) 2.88 -Wound/Ulcer Outcome Not Healed -Ulcer Cleansing Rinsed/ Irrigated with Saline -Foul Odor after Cleansing No -Bioengineered Tissue No -Bleeding Controlled with Pressure -Offloading No -Treatment Response Procedure Tolerated Well [See Physician Procedure note for Specifics] Pain Scale: 0-10 Numeric [Pain] -Is Patient Pain Free? Yes Musculoskeletal: No Tenderness to Palpation of Joints or Extremities, Muscle Wasting, - - Dorsal contraction of lesser toes. Muscle atrophy is noted. Compartments are soft to palpate without bogginess or fluctuance on palpation Neurological: Sensory exam intact to light touch and pain Psych/Mental Status: Normal Affect, Appropriate Debridement Note Post-Debridement Measurements/Treatment WC - Nurse 2 - General Ulcer CM Notes Start: 01/29/20 10:12 Freq: Status: Active Protocol: Activity Type Activity Date Activity User E-Sign Co-Sign Detail Recorded Client Recorded Date Recorded By Document 01/29/20 10:31 JAZMINE [id number] 01/29/20 10:35 JAZMINE 01/29/20 10:31 Wound Center Nurse 2 #11 L Heel -Time 10:31 -Correct Patient Yes -Correct Side, Site, Position Yes -Correct Procedure Yes -Procedure Performed Yes -Type of Procedure Debridement -Clinical Debridement Subcutaneous -Post Debridement Size (cm) - Length 0.8 -Post Debridement Size (cm) - Width 0.3 -Post Debridement Size (cm) - Depth 0.2 -Total Square (cm) 0.24 -Wound/Ulcer Outcome Not Healed -Ulcer Cleansing Rinsed/ Irrigated with Saline -Foul Odor after Cleansing No -Bioengineered Tissue No -Bleeding Controlled with Pressure -Offloading No -Treatment Response Procedure Tolerated Well #10 L 3rd Toe -Time 10:31 -Correct Patient Yes -Correct Side, Site, Position Yes -Correct Procedure Yes -Procedure Performed Yes -Type of Procedure Debridement -Clinical Debridement Subcutaneous -Post Debridement Size (cm) - Length 0.3 -Post Debridement Size (cm) - Width 1.0 -Post Debridement Size (cm) - Depth 0.1 -Total Square (cm) 0.30 -Wound/Ulcer Outcome Not Healed -Ulcer Cleansing Rinsed/ Irrigated with Saline -Foul Odor after Cleansing No -Bioengineered Tissue No -Bleeding Controlled with Pressure -Offloading No -Treatment Response Procedure Tolerated Well #9 L @nd Toe -Time 10:31 -Correct Patient Yes -Correct Side, Site, Position Yes -Correct Procedure Yes -Procedure Performed Yes -Type of Procedure Debridement -Clinical Debridement Subcutaneous -Post Debridement Size (cm) - Length 1.0 -Post Debridement Size (cm) - Width 0.8 -Post Debridement Size (cm) - Depth 0.2 -Total Square (cm) 0.80 -Wound/Ulcer Outcome Not Healed -Ulcer Cleansing Rinsed/ Irrigated with Saline -Foul Odor after Cleansing No -Bioengineered Tissue No -Bleeding Controlled with Pressure -Offloading No -Treatment Response Procedure Tolerated Well #8 L Grt Toe -Time 10:32 -Correct Patient Yes -Correct Side, Site, Position Yes -Correct Procedure Yes -Procedure Performed Yes -Type of Procedure Debridement -Clinical Debridement Subcutaneous -Post Debridement Size (cm) - Length 1.6 -Post Debridement Size (cm) - Width 1.8 -Post Debridement Size (cm) - Depth 0.2 -Total Square (cm) 2.88 -Wound/Ulcer Outcome Not Healed -Ulcer Cleansing Rinsed/ Irrigated with Saline -Foul Odor after Cleansing No -Bioengineered Tissue No -Bleeding Controlled with Pressure -Offloading No -Treatment Response Procedure Tolerated Well Pain Scale: 0-10 Numeric Is Patient Pain Free? Yes Wound debrided: dorsal hallux, dorsal third toe, medial 2nd toe, heel Laterality: Left Type of Debridement: Excisional debridement Anesthesia Used: 5% Lidocaine Gel Depth: in the subcutaneous layer Percentage of wound debrided: 100 Tissue Removed: fibrous, devitalized subcutaneous, biofilm, slough, eschar Severity: Fat Layer Exposed Amount of bleeding with debridement: Mild Bleeding Controlled with: Pressure Patient tolerated procedure well Assessment/Plan Assessment: Right below-knee amputation -following with orthopedic surgeon at [facility]. Left unstageable heel ulcer, no infection. Left first, second, third toe ulcers, no infection, eschars. Peripheral vascular disease. Uncontrolled diabetes. Other comorbidities. Malnutrition Plan: I reviewed and discussed his case. The etiology of the ulcers and components of a comprehensive wound healing plan were reviewed. Subcutaneous excisional debridement was performed on the left foot (first and second toes) and he tolerated this. I recommend application of Santyl applied nickel thickness daily. To resume PRAFO boot to offload heel while resting in bed or seated throughout the day. To avoid wearing shoes that press on the toes. The right limb is noted in the wound VAC is intact without adjacent infection signs are leaking. He will be followed by his surgeon for this right lower extremity condition. His previous vascular intervention per chart review was noted. He will follow-up again within the next 2 weeks which I highly encouraged. I recommend nutritional supplementation including Thong and a well-balanced nutritious diet. The left foot x-rays are unremarkable for any acute injury or infection. Vascular calcification is also seen on the left foot x-ray. To follow-up with the wound healing center in 1 to 2 weeks. I answered all of his questions. I answered all of his family's questions. . I reviewed his medical records from [facility] as the following: He was admitted for a right foot infection and gangrene in early August 2019. 08-22-2019: He had a culture of the Right foot including mixed javier on 08-22-2019. MRI of the foot demonstrated necrosis and potential early osteomyelitis of the toes there is also foci of air in the entire foot. He had an arterial ultrasound demonstrating a right BECKI of 0.29 and toe brachial index of 0.0. The left BECKI was 1.91 and toe brachial index was 0.0. 08-23-2019: Hemoglobin A1c 9.8, he had a right below[facility]knee [facility] with Dr. Gordo Figueroa MD. 08-28-2019: Angiogram bilateral lower extremity runoff performed by Yadi Mata MD. a nuclear medicine stress test was also performed which was normal and he also had a normal EKG with no signs of ischemia. 08-29-2019 aortogram with bilateral lower extremity runoff demonstrated significant stenos is and partial occlusion of the right common femoral artery and bilateral superficial femoral artery occlusion. The right below-knee popliteal artery was identified with two-vessel runoff to the foot. On the left lower extremity there was reconstitution at the above-knee popliteal area. 09-02-2019 right femoral enterectomy with popliteal angioplasty performed. 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 Finn Beltran. The doctors on file the provided treatment for him well [facility] include Dr. Gonzalez for hospital management, Dr. Badillo, Dr. Beltran, Dr. Figueroa. I answered all of his questions. . [id number]. Reviewed today medication and allergy profile reviewed and reconciled. Reviewed 11-19-3029: BMI elevated at 26.7 and he was advised to follow-up with his primary care physician. Diet and activity recommendations were made for healing optimization and improved health. Blood pressure is elevated at 150/69. He was advised to follow-up with his primary care physician. He is a noted fall risk with suspected multiple falls this past year. He was advised to maintain a nonweightbearing status in a wheelchair. His recent stay at the rehabilitation unit is noted and he is already under going and exercise program for this condition. He is a current nontobacco user. His prior history of tobacco use is noted. He does not have a living will on file. He reports updated influenza immunization.
[2020-02-12 11:10] VITALS: RESP 20; TEMP 36.1; BMI 26.6
--- NOTE | 2020-02-12 12:54 | PCM.WC.PN ---
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 Current Visit: Yes Code(s): L97.522 - Non-pressure chronic ulcer of other part of left foot with fat layer exposed (3) Pressure ulcer, heel, left, unstageable Status: Acute Current Visit: Yes Code(s): L89.620 - Pressure ulcer of left heel, unstageable (4) Blister of toe of left foot without infection Status: Acute Current Visit: Yes Qualifiers: Encounter type: initial encounter Qualified Code(s): S90.425A - Blister (nonthermal), left lesser toe(s), initial encounter Code(s): S90.425A - Blister (nonthermal), left lesser toe(s), initial encounter Comment: left dorsal fifth toe (5) Tinea unguium Status: Acute Current Visit: Yes Code(s): B35.1 - Tinea unguium Type of Wound Date of Service: 02/12/20 Chief Complaint: Left foot multiple ulcers History of Wound: This 79-year-old male with multiple comorbidities including diabetes, peripheral vascular disease, CAD, and others was seen for bilateral lower extremity ulcers. He did previously have documentation of a right below-knee amputation that was performed [facility] with Dr. Gordo Figueroa. He did follow-up and had a revisional surgery. He has a wound VAC in place and he replaced this was recently discontinued. He will follow-up with his surgeon tomorrow. He no longer has home health coming out to his house. I am seeing him today strictly for the left foot. He also has a vascular surgeon follow-up with Dr. Finn Beltran MD tomorrow. His prior intervention is noted. His office notes were previously faxed for communication purposes. He is with his daughter today. They have been applying Santyl to the left foot ulcer sites. He has a new blister to his left fifth toe and he does not recall a specific trauma. He relates he may have bumped it while he was sleeping. He also asked for help safely trimming his toenails on his left foot because he is unable to perform this on his own. The thickness and length of his toenails are potential pressure contributions for adjacent toe ulcers because they are in close approximation. He is at risk due to his peripheral vascular disease I do not recommend trimming these on his own. Progress of Wound: Stable left. New blister left fifth toe - Physical Exam Vital Signs Temp Pulse Resp BP 97 F L 89 20 H 146/64 H 02/12/20 11:10 01/29/20 10:12 02/12/20 11:10 01/29/20 10:12 General: Alert, Oriented x3, Cooperative, No apparent distress HEENT: Atraumatic Extremities: No cyanosis, Capillary Refill Less than 3 Seconds, No Calf Tenderness, Diminished Peripheral Pulses, Edema Skin: Ulcer/ Wound - No purulence, erythema, streaking, odor, infection. The ulcer to the heel, second toe, hallux have fibrous tissue noted. The dorsal third toe ulcer is healed with full epithelialization., - - There is a new serous fluid-filled blister to the dorsal lateral fifth toe without local signs of infection. There is no interdigital maceration. Toenails on the left foot are elongated, thick, dystrophic with subungual debris. The nail borders are incurvated at the medial lateral aspects and are coming in contact with the adjacent toes, left Wound Measurements and Assessment WC - Nurse 1 - General Ulcer Measurement Start: 01/29/20 10:12 Freq: Status: Active Protocol: Activity Type Activity Date Activity User E-Sign Co-Sign Detail Recorded Client Recorded Date Recorded By Document 02/12/20 11:10 DL [id number] 02/12/20 11:25 DL 02/12/20 11:10 Wound Center Nurse 1 [Ulcer Assessment] #11 L Heel -Current Size (cm) - Length 0.5 -Current Size (cm) - Width 0.4 -Current Size (cm) - Depth 0.1 -Total Square Cm 0.20 -Photo Taken No -Exudate Amt None Present -Wound Margin Thickened -Granulation Amt None Present (0 %) -Necrosis Amt Small (1-33%) -Necrotic Tissue Type Eschar -Structure Exposed N/A -Texture (Teresita-wound Skin Appearance) Scarring -Moisture (Teresita-wound Skin Appearance Dry/Scaly ) -Color (Teresita-wound Skin Appearance) No Abnormality -Temperature (Teresita-wound Skin No Abnormality Appearance) (Pt Warm) -Tenderness on Palpation (Teresita-wound No Skin Appearance) -Ulcer Cleansing Rinsed/ Irrigated with Saline -Foul Odor after Cleansing No -Anesthetic Used 4% Lidocaine Solution #10 L 3rd Toe -Photo Taken No -Exudate Amt None Present -Wound Margin Thickened -Granulation Amt None Present (0 %) -Necrosis Amt Small (1-33%) -Necrotic Tissue Type Adherent Slough -Structure Exposed N/A -Texture (Teresita-wound Skin Appearance) Scarring -Moisture (Teresita-wound Skin Appearance Dry/Scaly ) -Color (Teresita-wound Skin Appearance) No Abnormality -Temperature (Teresita-wound Skin No Abnormality Appearance) (Pt Warm) -Tenderness on Palpation (Teresita-wound No Skin Appearance) -Ulcer Cleansing Rinsed/ Irrigated with Saline -Foul Odor after Cleansing No -Anesthetic Used 4% Lidocaine Solution #9 L 2nd Toe -Current Size (cm) - Length 0.6 -Current Size (cm) - Width 0.4 -Current Size (cm) - Depth 0.2 -Total Square Cm 0.24 -Photo Taken No -Exudate Amt None Present -Wound Margin Thickened -Granulation Amt Small (1-33%) -Granulation Quality Pale -Necrosis Amt Small (1-33%) -Necrotic Tissue Type Adherent Slough -Structure Exposed N/A -Texture (Teresita-wound Skin Appearance) Scarring -Moisture (Teresita-wound Skin Appearance Dry/Scaly ) -Color (Teresita-wound Skin Appearance) No Abnormality -Temperature (Teresita-wound Skin No Abnormality Appearance) (Pt Warm) -Tenderness on Palpation (Teresita-wound No Skin Appearance) -Ulcer Cleansing Rinsed/ Irrigated with Saline -Foul Odor after Cleansing No -Anesthetic Used 4% Lidocaine Solution #8 L Grt Toe -Current Size (cm) - Length 1.5 -Current Size (cm) - Width 1.8 -Current Size (cm) - Depth 0.2 -Total Square Cm 2.70 -Photo Taken No -Exudate Amt None Present -Wound Margin Thickened -Granulation Amt None Present (0 %) -Necrosis Amt Large (67-100%) -Necrotic Tissue Type Eschar -Structure Exposed N/A -Texture (Teresita-wound Skin Appearance) Scarring -Moisture (Teresita-wound Skin Appearance Dry/Scaly ) -Color (Teresita-wound Skin Appearance) No Abnormality -Temperature (Teresita-wound Skin No Abnormality Appearance) (Pt Warm) -Tenderness on Palpation (Teresita-wound No Skin Appearance) -Ulcer Cleansing Rinsed/ Irrigated with Saline -Foul Odor after Cleansing No -Anesthetic Used 4% Lidocaine Solution WC - Nurse 2 - General Ulcer CM Notes Start: 02/12/20 11:32 Freq: Status: Active Protocol: Activity Type Activity Date Activity User E-Sign Co-Sign Detail Recorded Client Recorded Date Recorded By Document 02/12/20 11:33 [id number] 02/12/20 11:41 JAZMINE 02/12/20 11:33 Wound Center Nurse 2 [Procedure/Treatment] #11 L Heel -Time 11:39 -Correct Patient Yes -Correct Side, Site, Position Yes -Correct Procedure Yes -Procedure Performed Yes -Type of Procedure Debridement -Clinical Debridement Subcutaneous -Tissue Removed Subcutaneous -Post Debridement (cm) - Length 0.5 -Post Debridement (cm) - Width 0.5 -Post Debridement (cm) - Depth 0.1 -Total Square (Post) (cm) 0.25 -Area of Debridement (cm) - Length 0.5 -Area of Debridement (cm) - Width 0.5 -Total Square (Area) (cm) 0.25 -Tunneling No -Undermining/Tunneling No -Circular Undermining No -Wound/Ulcer Outcome Not Healed -Ulcer Cleansing Rinsed/ Irrigated with Saline -Foul Odor after Cleansing No -Bioengineered Tissue No -Bleeding Controlled with Pressure -Offloading Yes -Type of Offloading Surgical Shoe -Treatment Response Procedure Tolerated Well -Debridement - Subq, 1st 20sq cm No #10 L 3rd Toe -Correct Patient No -Correct Side, Site, Position No -Correct Procedure No -Procedure Performed No -Post Debridement (cm) - Length 0 -Post Debridement (cm) - Width 0 -Post Debridement (cm) - Depth 0 -Total Square (Post) (cm) 0 -Wound/Ulcer Outcome Healed- Epithelialized #9 L 2nd Toe -Time 11:38 -Correct Patient Yes -Correct Side, Site, Position Yes -Correct Procedure Yes -Procedure Performed Yes -Type of Procedure Debridement -Clinical Debridement Subcutaneous -Tissue Removed Subcutaneous -Post Debridement (cm) - Length 0.6 -Post Debridement (cm) - Width 0.5 -Post Debridement (cm) - Depth 0.2 -Total Square (Post) (cm) 0.30 -Area of Debridement (cm) - Length 0.6 -Area of Debridement (cm) - Width 0.5 -Total Square (Area) (cm) 0.30 -Tunneling No -Undermining/Tunneling No -Circular Undermining No -Wound/Ulcer Outcome Not Healed -Ulcer Cleansing Rinsed/ Irrigated with Saline -Foul Odor after Cleansing No -Bioengineered Tissue No -Bleeding Controlled with Pressure -Offloading Yes -Type of Offloading Surgical Shoe -Treatment Response Procedure Tolerated Well -Debridement - Subq, 20sq cm No #8 L Grt Toe -Time 11:36 -Correct Patient Yes -Correct Side, Site, Position Yes -Correct Procedure Yes -Procedure Performed Yes -Type of Procedure Debridement -Clinical Debridement Subcutaneous -Tissue Removed Subcutaneous -Post Debridement (cm) - Length 1.6 -Post Debridement (cm) - Width 1.8 -Post Debridement (cm) - Depth 0.2 -Total Square (Post) (cm) 2.88 -Area of Debridement (cm) - Length 1.6 -Area of Debridement (cm) - Width 1.8 -Total Square (Area) (cm) 2.88 -Tunneling No -Undermining/Tunneling No -Circular Undermining No -Wound/Ulcer Outcome Not Healed -Ulcer Cleansing Rinsed/ Irrigated with Saline -Foul Odor after Cleansing No -Bioengineered Tissue No -Bleeding Controlled with Pressure -Offloading Yes -Type of Offloading Surgical Shoe -Debridement - Subq, 20sq cm Yes [See Physician Procedure note for Specifics] Pain Scale: 0-10 Numeric [Pain] -Is Patient Pain Free? Yes Musculoskeletal: No Tenderness to Palpation of Joints or Extremities, Muscle Wasting, - - Right below-knee amputation Neurological: - - Lack of normal epicritic sensation. Hypersensitivity to touch. No pain with debridement or palpation Psych/Mental Status: Normal Affect, Appropriate Debridement Note Post-Debridement Measurements/Treatment WC - Nurse 2 - General Ulcer CM Notes Start: 02/12/20 11:32 Freq: Status: Active Protocol: Activity Type Activity Date Activity User E-Sign Co-Sign Detail Recorded Client Recorded Date Recorded By Document 02/12/20 11:33 [email or web address] [id number] 02/12/20 11:41 JAZMINE 02/12/20 11:33 Wound Center Nurse 2 #11 L Heel -Time 11:39 -Correct Patient Yes -Correct Side, Site, Position Yes -Correct Procedure Yes -Procedure Performed Yes -Type of Procedure Debridement -Clinical Debridement Subcutaneous -Tissue Removed Subcutaneous -Post Debridement (cm) - Length 0.5 -Post Debridement (cm) - Width 0.5 -Post Debridement (cm) - Depth 0.1 -Total Square (Post) (cm) 0.25 -Area of Debridement (cm) - Length 0.5 -Area of Debridement (cm) - Width 0.5 -Total Square (Area) (cm) 0.25 -Tunneling No -Undermining/Tunneling No -Circular Undermining No -Wound/Ulcer Outcome Not Healed -Ulcer Cleansing Rinsed/ Irrigated with Saline -Foul Odor after Cleansing No -Bioengineered Tissue No -Bleeding Controlled with Pressure -Offloading Yes -Type of Offloading Surgical Shoe -Treatment Response Procedure Tolerated Well -Debridement - Subq, 1st 20sq cm No #10 L 3rd Toe -Correct Patient No -Correct Side, Site, Position No -Correct Procedure No -Procedure Performed No -Post Debridement (cm) - Length 0 -Post Debridement (cm) - Width 0 -Post Debridement (cm) - Depth 0 -Total Square (Post) (cm) 0 -Wound/Ulcer Outcome Healed- Epithelialized #9 L 2nd Toe -Time 11:38 -Correct Patient Yes -Correct Side, Site, Position Yes -Correct Procedure Yes -Procedure Performed Yes -Type of Procedure Debridement -Clinical Debridement Subcutaneous -Tissue Removed Subcutaneous -Post Debridement (cm) - Length 0.6 -Post Debridement (cm) - Width 0.5 -Post Debridement (cm) - Depth 0.2 -Total Square (Post) (cm) 0.30 -Area of Debridement (cm) - Length 0.6 -Area of Debridement (cm) - Width 0.5 -Total Square (Area) (cm) 0.30 -Tunneling No -Undermining/Tunneling No -Circular Undermining No -Wound/Ulcer Outcome Not Healed -Ulcer Cleansing Rinsed/ Irrigated with Saline -Foul Odor after Cleansing No -Bioengineered Tissue No -Bleeding Controlled with Pressure -Offloading Yes -Type of Offloading Surgical Shoe -Treatment Response Procedure Tolerated Well -Debridement - Subq, 1st 20sq cm No #8 L Grt Toe -Time 11:36 -Correct Patient Yes -Correct Side, Site, Position Yes -Correct Procedure Yes -Procedure Performed Yes -Type of Procedure Debridement -Clinical Debridement Subcutaneous -Tissue Removed Subcutaneous -Post Debridement (cm) - Length 1.6 -Post Debridement (cm) - Width 1.8 -Post Debridement (cm) - Depth 0.2 -Total Square (Post) (cm) 2.88 -Area of Debridement (cm) - Length 1.6 -Area of Debridement (cm) - Width 1.8 -Total Square (Area) (cm) 2.88 -Tunneling No -Undermining/Tunneling No -Circular Undermining No -Wound/Ulcer Outcome Not Healed -Ulcer Cleansing Rinsed/ Irrigated with Saline -Foul Odor after Cleansing No -Bioengineered Tissue No -Bleeding Controlled with Pressure -Offloading Yes -Type of Offloading Surgical Shoe -Debridement - Subq, 1st 20sq cm Yes Pain Scale: 0-10 Numeric Is Patient Pain Free? Yes Wound debrided: dorsal hallux, medial distal 2nd toe, heel Laterality: Left Type of Debridement: Excisional debridement Anesthesia Used: 5% Lidocaine Gel Depth: in the subcutaneous layer Percentage of wound debrided: 100 Instrument Used: #15 blade Tissue Removed: fibrous, devitalized subcutaneous, biofilm, slough Severity: Fat Layer Exposed Amount of bleeding with debridement: Mild Bleeding Controlled with: Pressure Patient tolerated procedure well Assessment/Plan Active Problems (Last Reviewed 09/12/19 @ 08:[address] Kyara King, DO) Peripheral vascular disease (Chronic) Non-pressure chronic ulcer of other part of left foot with fat layer exposed (Chronic) Pressure ulcer, heel, left, unstageable (Acute) Blister of toe of left foot without infection (Acute) left dorsal fifth toe Tinea unguium (Acute) Assessment: tinea ungium, left foot (1,2,3,4,5). Right below-knee amputation -following with orthopedic surgeon at [facility]. Left unstageable heel ulcer, no infection. Left first, second -stable with no sign of infection. Left third toe ulcer healed today. Peripheral vascular disease. Uncontrolled diabetes. Other comorbidities. Malnutrition Plan: I reviewed and discussed his case. The etiology of the ulcers and components of a comprehensive wound healing plan were reviewed. Subcutaneous excisional debridement was performed on the left foot (first and second toes) and he tolerated this. I recommend application of Santyl applied nickel thickness daily. Isopropyl alcohol wipe was used to cleanse the fifth toe and a 15 blade scalpel was used to drain the serous fluid-filled blister. He was reassured that there were no signs of infection. I advised him to cover this with a gauze. The outer skin layer was left intact as a biological dressing. A different dressing will be considered pending his progress when he follows up at his next office visit. To resume PRAFO boot to offload heel while resting in bed or seated throughout the day. To avoid wearing shoes that press on the toes. The right limb is noted to be intact without a wound VAC in his dressing is in place; this was not evaluated because he is following up with his surgeon. His previous vascular intervention per chart review was noted. He will follow-up again tomorrow. His prior notes were sent over for communication purposes. I recommend nutritional supplementation including Thong and a well-balanced nutritious diet. The left foot x-rays are unremarkable for any acute injury or infection. Vascular calcification is also seen on the left foot x-ray. To follow-up with the wound healing center in 2 weeks. His toenails were also debrided with a nail nipper including left 1, 2, 3, 4, 5. These were debrided in length, and thickness to reduce pressure, prevent additional ulcer formation, and to reduce pain. He tolerated this well. He is at risk for continued ulcer formation due to his peripheral vascular disease. He has clinical findings that support is at risk status with amputations and nonhealing ulcers. I answered all of his questions. I answered all of his family's questions. . I reviewed his medical records from [facility] as the following: He was admitted for a right foot infection and gangrene in early August 2019. 08-22-2019: He had a culture of the Right foot including mixed javier on 08-22-2019. MRI of the foot demonstrated necrosis and potential early osteomyelitis of the toes there is also foci of air in the entire foot. He had an arterial ultrasound demonstrating a right BECKI of 0.29 and toe brachial index of 0.0. The left BECKI was 1.91 and toe brachial index was 0.0. 08-23-2019: Hemoglobin A1c 9.8, he had a right below-knee amputation marian ibarra with Dr. Gordo Figueroa MD. 08-28-2019: Angiogram bilateral lower extremity runoff performed by Yadi Mata MD. a nuclear medicine stress test was also performed which was normal and he also had a normal EKG with no signs of ischemia. 08-29-2019 aortogram with bilateral lower extremity runoff demonstrated significant stenosis and partial occlusion of the right common femoral artery and bilateral superficial femoral artery occlusion. The right below-knee popliteal artery was identified with two-vessel runoff to the foot. On the left lower extremity there was reconstitution at the above-knee popliteal area. 09-02-2019 right femoral enterectomy with popliteal angioplasty performed. 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 Finn Beltran. The doctors on file the provided treatment for him well [facility] include Dr. Gonzalez for hospital management, Dr. Badillo, Dr. Beltran, Dr. Figueroa. I answered all of his questions. . [id number]. Reviewed today medication and allergy profile reviewed and reconciled. Reviewed 11-19-3029: BMI elevated at 26.7 and he was advised to follow-up with his primary care physician. Diet and activity recommendations were made for healing optimization and improved health. Blood pressure is elevated at 150/69. He was advised to follow-up with his primary care physician. He is a noted fall risk with suspected multiple falls this past year. He was advised to maintain a nonweightbearing status in a wheelchair. His recent stay at the rehabilitation unit is noted and he is already under going and exercise program for this condition. He is a current nontobacco user. His prior history of tobacco use is noted. He does not have a living will on file. He reports updated influenza immunization.
== END 2020-02-17 23:59 ==
LOC: WC 11:00
PROVIDERS: PCP Family Medicine Geriatric Medicine; Referring Provider Podiatrist; Visit Provider Podiatrist
DX: E11.621 Type 2 diabetes mellitus with foot ulcer (principal); L97.522 Non-pressure chronic ulcer of other part of left foot with fat layer exposed; L89.620 Pressure ulcer of left heel, unstageable; S90.425A Blister (nonthermal), left lesser toe(s), initial encounter; E11.52 Type 2 diabetes mellitus with diabetic peripheral angiopathy with gangrene; E11.65 Type 2 diabetes mellitus with hyperglycemia; B35.1 Tinea unguium; I25.10 Atherosclerotic heart disease of native coronary artery without angina pectoris; I10 Essential (primary) hypertension; Z79.82 Long term (current) use of aspirin; Z79.4 Long term (current) use of insulin; Z79.899 Other long term (current) drug therapy; Z89.511 Acquired absence of right leg below knee; Z87.891 Personal history of nicotine dependence
CPT/HCPCS: 11042

== ENCOUNTER → 2020-02-17 16:23 | Outpatient (CLI) | payer MEDICARE, MEDICAID, SELFPAY ==
[2020-02-12 11:10] VITALS: BMI 26.6
[2020-02-17 17:53] LABS: Absolute Lymphocyte Count 2.35 X10^3/uL (0.83-4.51); Absolute Neutrophil Count 5.9 X10^3/uL (2.0-7.7); Basophil# 0.02 X10^3/uL; Basophil% 0.2 % (0-1); Eosinophil# 0.09 X10^3/uL; Eosinophils% 0.9 % (0-5); Hematocrit 43.3 % (40-54); Hemoglobin 13.9 g/dL (13.0-16.5); Lymphocyte # 2.35 X10^3/ul (4.0); Lymphocyte % 24.7 % (19-41); Mean Corp Hgb Conc 32.1 g/dL (32-36); Mean Corpuscular Hgb 28.5 pg (27.0-32.0); Mean Corpuscular Volume 88.7 fL (80-94); Mean Platelet Vol. 10.6 fl (6.2-12.0); Monocyte# 1.03 X10^3/uL; Monocyte% 10.8 % (0-10); NRBC Flagged by Analyzer 0 % (0-5); Neutrophil # 5.91 X10^3/uL (2.7-7.7); Neutrophil % 62.2 % (47-70); Platelet Count 357 K/mm3 (150-450); RBC Distribution Width CV 14.9 % (11.6-14.6); RBC Distribution Width SD 47.9 fl (35.1-43.9); Red Blood Count 4.88 M/mm3 (4.6-6.2); White Blood Count 9.5 K/mm3 (4.4-11.0)
[2020-02-17 18:43] LABS: Vitamin D,25 Hydroxy 40.8 ng/mL
[2020-02-17 18:44] LABS: ALB/GLOB Ratio 0.8 RATIO (0.9-2.4); AST(SGOT) 18 U/L (15-37); Alanine Aminotransfer ALT/SGPT 25 U/L (16-61); Albumin, Serum 3.7 g/dL (3.2-5.0); Alkaline Phosphatase 94 U/L (45-117); Anion Gap 6 (5-15); BUN 35 mg/dL (7-18); BUN/Creat Ratio 36.2 RATIO (10-20); Calcium,Total 9.4 mg/dL (8.5-10.1); Chloride 103 mmol/L (98-107); Creatinine, Serum 0.97 mg/dL (0.70-1.30); EST Glomerular Filtration Rate 80 mL/min (>60); Est Glom Filt Rate - Afr Amer 96 mL/min (>60); Globulin 4.4 g/dL (2.2-4.2); Glucose 124 mg/dL (74-106); Potassium 4.7 mmol/L (3.5-5.1); Protein, Total 8.1 g/dL (6.4-8.2); Sodium Level 137 mmol/L (136-145); Thyroid Stim Hormone (TSH) 2.58 uIU/mL (0.358-3.74)
== END ==
PROVIDERS: PCP Family Medicine Geriatric Medicine; Visit Provider Family Medicine Geriatric Medicine
DX: E11.9 Type 2 diabetes mellitus without complications (principal); E55.9 Vitamin D deficiency, unspecified; I10 Essential (primary) hypertension
CPT/HCPCS: 36415; 80053; 82306; 84443; 85025

== ENCOUNTER 2020-03-18 13:30 | Outpatient (RCR) | payer MEDICARE, MEDICAID, SELFPAY ==
[2020-02-18 00:43] VITALS: BP 146/64; PULSE 89; RESP 20; TEMP 36.1
[2020-03-04 14:13] VITALS: RESP 16; TEMP 36; BMI 26.6
--- NOTE | 2020-03-07 19:11 | PCM.WC.PN ---
(1) Other specified peripheral vascular diseases Status: Chronic Code(s): I73.89 - Other specified peripheral vascular diseases (2) History of right below knee amputation Status: Chronic Code(s): Z89.511 - Acquired absence of right leg below knee Comment: 09/05/2019 (3) Non-pressure chronic ulcer of other part of left foot with fat layer exposed Status: Chronic Code(s): L97.522 - Non-pressure chronic ulcer of other part of left foot with fat layer exposed Comment: toe (4) Non-pressure chronic ulcer of unspecified part of right lower leg with fat layer exposed Status: Chronic Code(s): L97.912 - Non-pressure chronic ulcer of unspecified part of right lower leg with fat layer exposed Comment: BKA stump (5) Decubitus ulcer, stage II Status: Chronic Qualifiers: Pressure injury location: heel Laterality: left Qualified Code(s): L89.622 - Pressure ulcer of left heel, stage 2 Code(s): L89.92 - Pressure ulcer of unspecified site, stage 2 Comment: lateral malleolus (6) Malnutrition Status: Chronic Code(s): E46 - Unspecified protein-calorie malnutrition Comment: protein calorie malnutrition at admission Type of Wound Date of Service: 03/04/20 Chief Complaint: right below knee amputation ulcers. Left foot multiple ulcers History of Wound: This 79-year-old male with multiple comorbidities including diabetes, peripheral vascular disease, CAD, and others was seen for bilateral lower extremity ulcers. He did previously have documentation of a right below-knee amputation that was performed [facility] with Dr. Gordo Figueroa. He did follow-up and had a revisional surgery. He has a wound VAC in placed and this was recently discontinued. He will follow up with his surgeon later this week. He has a scab at this site and asks for help removing this. He has also been treated by vascular surgeon follow-up with Dr. Finn Beltran MD. His prior intervention is noted. He is with his daughter today. They have been applying Santyl to the left foot ulcer sites. He has a new blister to his left fifth toe and he does not recall a specific trauma. He relates he may have bumped it while he was sleeping. Progress of Wound: Stable left. right leg ulcers improving - Physical Exam Vital Signs Temp Pulse Resp BP 96.8 F L 89 16 146/64 H 03/04/20 14:13 02/18/20 00:43 03/04/20 14:13 02/18/20 00:43 General: Alert, Oriented x3, Cooperative, No apparent distress HEENT: Atraumatic Extremities: No cyanosis, Capillary Refill Less than 3 Seconds, No Calf Tenderness, Diminished Peripheral Pulses, Edema Skin: Ulcer/ Wound - No purulence, erythema, streaking, odor, infection. Left heel ulcer site has resolved eschar and there is now fibrous tissue with mild granulation tissue noted. Full epithelialization is noted to the left fifth digit. The right below-knee amputation stump site has eschar and upon removal there is small fibrous and granulation tissue noted. The adjacent skin is hairless and atrophic. Musculoskeletal: No Tenderness to Palpation of Joints or Extremities, Muscle Wasting Neurological: - - Lack of normal epicritic sensation light touch is consistent with neuropathy status Psych/Mental Status: Normal Affect, Appropriate Debridement Note Post-Debridement Measurements/Treatment WC - Nurse 2 - General Ulcer CM Notes Start: 02/26/20 09:44 Freq: Status: Active Protocol: Activity Type Activity Date Activity User E-Sign Co-Sign Detail Recorded Client Recorded Date Recorded By Document 03/04/20 14:38 JF [id number] 03/04/20 14:44 JF 03/04/20 14:38 Wound Center Nurse 2 #11 L Heel -Time 14:41 -Correct Patient Yes -Correct Side, Site, Position Yes -Correct Procedure Yes -Procedure Performed Yes -Type of Procedure Debridement -Clinical Debridement Subcutaneous -Tissue Removed Subcutaneous -Post Debridement (cm) - Length 0.6 -Post Debridement (cm) - Width 0.5 -Post Debridement (cm) - Depth 0.2 -Total Square (Post) (cm) 0.30 -Area of Debridement (cm) - Length 0.6 -Area of Debridement (cm) - Width 0.5 -Total Square (Area) (cm) 0.30 -Tunneling No -Undermining/Tunneling No -Circular Undermining No -Wound/Ulcer Outcome Not Healed -Ulcer Cleansing Rinsed/ Irrigated with Saline -Foul Odor after Cleansing No -Bioengineered Tissue No -Bleeding Controlled with Pressure -Offloading No -Treatment Response Procedure Tolerated Well -Debridement - Subq, 1st 20sq cm Yes #9 L 2nd Toe -Time 14:42 -Correct Patient Yes -Correct Side, Site, Position Yes -Correct Procedure Yes -Procedure Performed Yes -Type of Procedure Debridement -Clinical Debridement Subcutaneous -Tissue Removed Subcutaneous -Post Debridement (cm) - Length 0.3 -Post Debridement (cm) - Width 0.2 -Post Debridement (cm) - Depth 0.2 -Total Square (Post) (cm) 0.06 -Area of Debridement (cm) - Length 0.3 -Area of Debridement (cm) - Width 0.2 -Total Square (Area) (cm) 0.06 -Tunneling No -Undermining/Tunneling No -Circular Undermining No -Wound/Ulcer Outcome Not Healed -Ulcer Cleansing Rinsed/ Irrigated with Saline -Foul Odor after Cleansing No -Bioengineered Tissue No -Bleeding Controlled with Pressure -Offloading Yes -Type of Offloading Surgical Shoe -Treatment Response Procedure Tolerated Well -Debridement - Subq, 1st 20sq cm No #8 L Grt Toe -Time 14:42 -Correct Patient Yes -Correct Side, Site, Position Yes -Correct Procedure Yes -Procedure Performed Yes -Type of Procedure Debridement -Clinical Debridement Subcutaneous -Tissue Removed Subcutaneous -Post Debridement (cm) - Length 1.4 -Post Debridement (cm) - Width 2.0 -Post Debridement (cm) - Depth 0.1 -Total Square (Post) (cm) 2.80 -Area of Debridement (cm) - Length 1.4 -Area of Debridement (cm) - Width 2.0 -Total Square (Area) (cm) 2.80 -Tunneling No -Undermining/Tunneling No -Circular Undermining No -Wound/Ulcer Outcome Not Healed -Ulcer Cleansing Rinsed/ Irrigated with Saline -Foul Odor after Cleansing No -Bioengineered Tissue No -Bleeding Controlled with Pressure -Offloading Yes -Type of Offloading Surgical Shoe -Treatment Response Procedure Tolerated Well -Debridement - Subq, 1st 20sq cm No WC - Nurse 3 - General Ulcer D/C NN Start: 02/26/20 09:44 Freq: Status: Active Protocol: Activity Type Activity Date Activity User E-Sign Co-Sign Detail Recorded Client Recorded Date Recorded By Document 03/04/20 15:03 BMF [id number] 03/04/20 15:04 BMF 03/04/20 15:03 Wound Care Nurse 3 #11 L Heel -Ulcer Cleansing Rinsed/ Irrigated with Saline -Foul Odor after Cleansing No -Primary Dressing Applied Other -Other Dressing santyl -Primary Dressing Covered/Secured with Dry Gauze & Roll Gauze, Secured with Tape,Other -Other Covering heel hat #9 L 2nd Toe -Ulcer Cleansing Rinsed/ Irrigated with Saline -Foul Odor after Cleansing No -Primary Dressing Applied Other -Other Dressing santyl -Primary Dressing Covered/Secured with Dry Gauze & Roll Gauze, Secured with Tape #8 L Grt Toe -Ulcer Cleansing Rinsed/ Irrigated with Saline -Foul Odor after Cleansing No -Primary Dressing Applied Other -Other Dressing santyl -Primary Dressing Covered/Secured with Dry Gauze & Roll Gauze, Secured with Tape Treatment Response Procedure Tolerated Well Pain Scale: 0-10 Numeric Is Patient Pain Free? Yes WC - Visit Discharge Discharge Condition Stable Ambulatory Status Wheelchair Transportation Private Auto Accompanied by daughter Wound debrided: bka stump site Laterality: Right Type of Debridement: Selective debridement Depth: Down to and including healthy tissue Percentage of wound debrided: 100 Instrument Used: #15 blade, Forceps Tissue Removed: eschar, devitalized tissue Severity: Limited To Skin Breakdown Amount of bleeding with debridement: None Patient tolerated procedure well - Additional Wound Wound debrided: heel, dorsal toe Laterality: Left Type of Debridement: Excisional debridement Anesthesia Used: 5% Lidocaine Gel Depth: in the subcutaneous layer Percentage of wound debrided: 100 Instrument Used: #15 blade Tissue Removed: fibrous, devitalized subcutaneous, biofilm, slough Severity: Fat Layer Exposed Amount of bleeding with debridement: Mild Bleeding Controlled with: Pressure Patient tolerated procedure: Patient tolerated procedure well Assessment/Plan Assessment: Right below-knee amputation -following with orthopedic surgeon at [facility]. ulcer central and medial BKA right leg, stable, no infection. resolved left fifth toe blister. Left unstageable heel ulcer, no infection (now grade II). Left first, second -stable with no sign of infection. Left third toe ulcer healed today. Peripheral vascular disease. Uncontrolled diabetes. Other comorbidities. Malnutrition Plan: I reviewed and discussed his case. The etiology of the ulcers and components of a comprehensive wound healing plan were reviewed. Subcutaneous excisional debridement was performed on the left foot (first and second toes) and he tolerated this. BKA eschar was also removed and selectively debrided. I recommend application of Santyl applied nickel thickness daily. Isopropyl alcohol wipe was used to cleanse the fifth toe and a 15 blade scalpel was used to drain the serous fluid-filled blister. He was reassured that there were no signs of infection. I advised him to cover this with a gauze. The outer skin layer was left intact as a biological dressing. A different dressing will be considered pending his progress when he follows up at his next office visit. To resume PRAFO boot to offload heel while resting in bed or seated throughout the day.He refuses. I recommended a donut offloading pillow as an alternative because the prafo boot is not well tolerated. To avoid wearing shoes that press on the toes. The right limb is noted to be intact w/ wound vac discontinued. To follow up with surgeon as advised. I recommend nutritional supplementation including Thong and a well-balanced nutritious diet. The left foot x-rays are unremarkable for any acute injury or infection. Vascular calcification is also seen on the left foot x-ray. To follow-up with the wound healing center in 2 weeks. I answered all of his questions. I answered all of his family's questions. . I reviewed his medical records from [facility] as the following: He was admitted for a right foot infection and gangrene in early August 2019. 08-22-2019: He had a culture of the Right foot including mixed javier on 08-22-2019. MRI of the foot demonstrated necrosis and potential early osteomyelitis of the toes there is also foci of air in the entire foot. He had an arterial ultrasound demonstrating a right BECKI of 0.29 and toe brachial index of 0.0. The left BECKI was 1.91 and toe brachial index was 0.0. 08-23-2019: Hemoglobin A1c 9.8, he had a right below-knee amputation guillotine style with Dr. Gordo Figueroa MD. 08-28-2019: Angiogram bilateral lower extremity runoff performed by Yadi Mata MD. a nuclear medicine stress test was also performed which was normal and he also had a normal EKG with no signs of ischemia. 08-29-2019 aortogram with bilateral lower extremity runoff demonstrated significant stenosis and partial occlusion of the right common femoral artery and bilateral superficial femoral artery occlusion. The right below-knee popliteal artery was identified with two-vessel runoff to the foot. On the left lower extremity there was reconstitution at the above-knee popliteal area. 09-02-2019 right femoral enterectomy with popliteal angioplasty performed. 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 Finn Beltran. The doctors on file the provided treatment for him well [facility] include Dr. Gonzalez for hospital management, Dr. Badillo, Dr. Beltran, Dr. Figueroa. I answered all of his questions. . [place] 2019. Reviewed today medication and allergy profile reviewed and reconciled. Reviewed 11-19-3029: BMI elevated at 26.7 and he was advised to follow-up with his primary care physician. Diet and activity recommendations were made for healing optimization and improved health. Blood pressure is elevated at 150/69. He was advised to follow-up with his primary care physician. He is a noted fall risk with suspected multiple falls this past year. He was advised to maintain a nonweightbearing status in a wheelchair. His recent stay at the rehabilitation unit is noted and he is already under going and exercise program for this condition. He is a current nontobacco user. His prior history of tobacco use is noted. He does not have a living will on file. He reports updated influenza immunization.
[2020-03-18 13:28] VITALS: BP 168/84; PULSE 86; RESP 18; TEMP 35.6; BMI 26.6
[2020-03-18 14:29] VITALS: BP 154/101; PULSE 73; RESP 18
--- NOTE | 2020-03-18 21:31 | PN.PCM_ITS ---
(1) Other specified peripheral vascular diseases Status: Chronic Code(s): I73.89 - Other specified peripheral vascular diseases (2) History of right below knee amputation Status: Resolved Code(s): Z89.511 - Acquired absence of right leg below knee Comment: 09/05/2019 (3) Non-pressure chronic ulcer of other part of left foot with fat layer exposed Status: Chronic Code(s): L97.522 - Non-pressure chronic ulcer of other part of left foot with fat layer exposed Comment: toe (4) Non-pressure chronic ulcer of unspecified part of right lower leg with fat layer exposed Status: Resolved Code(s): L97.912 - Non-pressure chronic ulcer of unspecified part of right lower leg with fat layer exposed Comment: BKA stump (5) Malnutrition Status: Chronic Code(s): E46 - Unspecified protein-calorie malnutrition Comment: protein calorie malnutrition at admission Type of Wound Date of Service: 03/18/20 Chief Complaint: right below knee amputation ulcers. Left foot multiple ulcers History of Wound: This 79-year-old male with multiple comorbidities including diabetes, peripheral vascular disease, CAD, and others was seen for bilateral lower extremity ulcers. He did previously have documentation of a right below-knee amputation that was performed [facility] with Dr. Gordo Figueroa. He did follow-up and had a revisional surgery. He has a wound VAC in placed and this was recently discontinued. He will follow up with his surgeon later this week. He has a scab at this site and asks for help removing this. He has also been treated by vascular surgeon follow-up with Dr. Finn Beltran MD. His prior intervention is noted. He is with his daughter today. They have been applying Santyl to the left foot ulcer sites. He is with his daughter today. Progress of Wound: Stable left. right leg ulcers healed - Physical Exam Vital Signs Temp Pulse Resp BP 96.1 F L 73 18 154/101 H 03/18/20 13:28 03/18/20 14:29 03/18/20 14:29 03/18/20 14:29 General: Alert, Oriented x3, Cooperative, No apparent distress HEENT: Atraumatic Extremities: No cyanosis, Capillary Refill Less than 3 Seconds, No Calf Tenderness, Diminished Peripheral Pulses, Edema - Mild, - - Right below-knee amputation Skin: Ulcer/ Wound - No purulence, erythema, streaking, odor, infection. The ulcers on the left foot remain fibrous and there is no bone or tendon exposed. The right leg ulcers at the recent below-knee amputation site are healed with full epithelialization today and no eschar. His skin in general is atrophic and hairless. Wound Measurements and Assessment WC - Nurse 1 - General Ulcer Measurement Start: 02/26/20 09:44 Freq: Status: Active Protocol: Activity Type Activity Date Activity User E-Sign Co-Sign Detail Recorded Client Recorded Date Recorded By Document 03/18/20 13:28 [id number] 03/18/20 13:34 03/18/20 13:28 Wound Center Nurse 1 [Ulcer Assessment] #11 L Heel -Combined with other wound No -Current Size (cm) - Length 0.1 -Current Size (cm) - Width 0.1 -Current Size (cm) - Depth 0.1 -Total Square Cm 0.01 -Photo Taken No -Tunneling No -Undermining/Tunneling No -Circular Undermining No -Necrotic Tissue Type Adherent Slough -Temperature (Teresita-wound Skin No Abnormality Appearance) (Pt Warm) -Ulcer Cleansing Rinsed/ Irrigated with Saline -Foul Odor after Cleansing No -Anesthetic Used 4% Lidocaine Solution #9 L 2nd Toe -Combined with other wound No -Current Size (cm) - Length 0.1 -Current Size (cm) - Width 0.3 -Current Size (cm) - Depth 0.2 -Total Square Cm 0.03 -Photo Taken No -Tunneling No -Undermining/Tunneling No -Circular Undermining No -Necrotic Tissue Type Adherent Slough -Temperature (Teresita-wound Skin No Abnormality Appearance) (Pt Warm) -Tenderness on Palpation (Teresita-wound No Skin Appearance) -Ulcer Cleansing Rinsed/ Irrigated with Saline -Anesthetic Used 4% Lidocaine Solution #8 L Grt Toe -Combined with other wound No -Current Size (cm) - Length 1.6 -Current Size (cm) - Width 1.7 -Current Size (cm) - Depth 0.2 -Total Square Cm 2.72 -Photo Taken No -Epithelialization None Present -Tunneling No -Undermining/Tunneling No -Circular Undermining No -Necrotic Tissue Type Adherent Slough -Temperature (Teresita-wound Skin No Abnormality Appearance) (Pt Warm) -Tenderness on Palpation (Teresita-wound No Skin Appearance) -Ulcer Cleansing Rinsed/ Irrigated with Saline -Foul Odor after Cleansing No -Anesthetic Used 4% Lidocaine Solution [Edema Assessment] -Lower Limb Edema Present NA WC - Nurse 2 - General Ulcer CM Notes Start: 02/26/20 09:44 Freq: Status: Active Protocol: Activity Type Activity Date Activity User E-Sign Co-Sign Detail Recorded Client Recorded Date Recorded By Document 03/18/20 14:08 [id number] 03/18/20 14:16 03/18/20 14:08 Wound Center Nurse 2 [Procedure/Treatment] 12-left 5th toe -Time 14:15 -Correct Patient Yes -Correct Side, Site, Position Yes -Procedure Performed Yes -Type of Procedure Debridement -Clinical Debridement Subcutaneous -Tissue Removed Subcutaneous -Post Debridement (cm) - Length 0.3 -Post Debridement (cm) - Width 0.3 -Post Debridement (cm) - Depth 0.1 -Total Square (Post) (cm) 0.09 -Area of Debridement (cm) - Length 0.3 -Area of Debridement (cm) - Width 0.3 -Total Square (Area) (cm) 0.09 -Tunneling No -Undermining/Tunneling No -Circular Undermining No -Wound/Ulcer Outcome Not Healed -Ulcer Cleansing Rinsed/ Irrigated with Saline -Foul Odor after Cleansing No -Bioengineered Tissue No -Bleeding Controlled with Pressure -Offloading Yes -Type of Offloading Surgical Shoe -Debridement - Subq, 1st 20sq cm No #11 L Heel -Correct Patient No -Correct Side, Site, Position No -Correct Procedure No -Post Debridement (cm) - Length 0 -Post Debridement (cm) - Width 0 -Post Debridement (cm) - Depth 0 -Total Square (Post) (cm) 0 -Area of Debridement (cm) - Length 0 -Area of Debridement (cm) - Width 0 -Total Square (Area) (cm) 0 -Wound/Ulcer Outcome Healed- Epithelialized #9 L 2nd Toe -Time 14:09 -Correct Patient Yes -Correct Side, Site, Position Yes -Correct Procedure Yes -Procedure Performed Yes -Type of Procedure Debridement -Clinical Debridement Subcutaneous -Tissue Removed Subcutaneous -Post Debridement (cm) - Length 0.2 -Post Debridement (cm) - Width 0.4 -Post Debridement (cm) - Depth 0.1 -Total Square (Post) (cm) 0.08 -Area of Debridement (cm) - Length 0.2 -Area of Debridement (cm) - Width 0.4 -Total Square (Area) (cm) 0.08 -Tunneling No -Undermining/Tunneling No -Circular Undermining No -Wound/Ulcer Outcome Not Healed -Ulcer Cleansing Rinsed/ Irrigated with Saline -Foul Odor after Cleansing No -Bioengineered Tissue No -Bleeding Controlled with Pressure -Offloading Yes -Type of Offloading Surgical Shoe -Treatment Response Procedure Tolerated Well -Debridement - Subq, 1st 20sq cm Yes #8 L Grt Toe -Time 14:09 -Correct Patient Yes -Correct Side, Site, Position Yes -Correct Procedure Yes -Procedure Performed Yes -Type of Procedure Debridement -Clinical Debridement Subcutaneous -Tissue Removed Subcutaneous -Post Debridement (cm) - Length 1.2 -Post Debridement (cm) - Width 1.8 -Post Debridement (cm) - Depth 0.2 -Total Square (Post) (cm) 2.16 -Area of Debridement (cm) - Length 1.2 -Area of Debridement (cm) - Width 1.8 -Total Square (Area) (cm) 2.16 -Tunneling No -Undermining/Tunneling No -Circular Undermining No -Wound/Ulcer Outcome Not Healed -Ulcer Cleansing Rinsed/ Irrigated with Saline -Bioengineered Tissue No -Bleeding Controlled with Pressure -Offloading Yes -Type of Offloading Surgical Shoe -Treatment Response Procedure Tolerated Well -Debridement - Subq, 1st 20sq cm No [See Physician Procedure note for Specifics] Pain Scale: 0-10 Numeric [Pain] -Is Patient Pain Free? Yes WC - Nurse 3 - General Ulcer D/C NN Start: 02/26/20 09:44 Freq: Status: Active Protocol: Activity Type Activity Date Activity User E-Sign Co-Sign Detail Recorded Client Recorded Date Recorded By Document 03/18/20 14:29 [facility] [id number] 03/18/20 14:30 [facility] 03/18/20 14:29 Wound Care Nurse 3 [Wound Dressing] 12-left 5th toe -Ulcer Cleansing Rinsed/ Irrigated with Saline -Foul Odor after Cleansing No -Primary Dressing Applied Other -Other Dressing santyl -Primary Dressing Covered/Secured Dry Gauze & with Roll Gauze, Secured with Tape #9 L 2nd Toe -Ulcer Cleansing Rinsed/ Irrigated with Saline -Foul Odor after Cleansing No -Primary Dressing Applied Other -Other Dressing santyl -Primary Dressing Covered/Secured Dry Gauze & with Roll Gauze, Secured with Tape #8 L Grt Toe -Foul Odor after Cleansing No -Primary Dressing Applied Other -Other Dressing santyl -Primary Dressing Covered/Secured Dry Gauze & with Roll Gauze, Secured with Tape [Post Procedure Tolerated] -Treatment Response Procedure Tolerated Well Vital Signs [Pulse] -Pulse Rate (60-100) 73 -Pulse Location Monitor [Respirations] -Respiratory Rate (12-18) 18 -Respiratory rate source Observation -Oxygen Delivery Method Room Air [Blood Pressure] -Blood Pressure (90/60-120/80) 154/101 H -Blood Pressure Mean (mm Hg) 118 -Source Monitor -Position Sitting -Blood Pressure Location Left Forearm Pain Scale: 0-10 Numeric [Pain] -Is Patient Pain Free? Yes WC - Visit Discharge [Visit Discharge Information] -Discharge Condition Stable -Ambulatory Status Wheelchair -Transportation Private Auto -Accompanied by daughter Musculoskeletal: No Tenderness to Palpation of Joints or Extremities, Muscle Wasting, - - Dorsal contraction of the hallux and lesser toes left Neurological: Sensory exam intact to light touch and pain - Hypersensitive Psych/Mental Status: Normal Affect, Appropriate Debridement Note Post-Debridement Measurements/Treatment - Nurse 2 - General Ulcer CM Notes Start: 02/26/20 09:44 Freq: Status: Active Protocol: Activity Type Activity Date Activity User E-Sign Co-Sign Detail Recorded Client Recorded Date Recorded By Document 03/04/20 14:38 [id number] 03/04/20 14:44 Document 03/18/20 14:08 [id number] 03/18/20 14:16 03/04/20 03/18/20 14:38 14:08 Wound Center Nurse 2 12-left 5th toe -Time 14:15 -Correct Patient Yes -Correct Side, Site, Position Yes -Procedure Performed Yes -Type of Procedure Debridement -Clinical Debridement Subcutaneous -Tissue Removed Subcutaneous -Post Debridement (cm) - Length 0.3 -Post Debridement (cm) - Width 0.3 -Post Debridement (cm) - Depth 0.1 -Total Square (Post) (cm) 0.09 -Area of Debridement (cm) - Length 0.3 -Area of Debridement (cm) - Width 0.3 -Total Square (Area) (cm) 0.09 -Tunneling No -Undermining/Tunneling No -Circular Undermining No -Wound/Ulcer Outcome Not Healed -Ulcer Cleansing Rinsed/ Irrigated with Saline -Foul Odor after Cleansing No -Bioengineered Tissue No -Bleeding Controlled with Pressure -Offloading Yes -Type of Offloading Surgical Shoe -Debridement - Subq, 1st 20sq cm No #11 L Heel -Time 14:41 -Correct Patient Yes No -Correct Side, Site, Position Yes No -Correct Procedure Yes No -Procedure Performed Yes -Type of Procedure Debridement -Clinical Debridement Subcutaneous -Tissue Removed Subcutaneous -Post Debridement (cm) - Length 0.6 0 -Post Debridement (cm) - Width 0.5 0 -Post Debridement (cm) - Depth 0.2 0 -Total Square (Post) (cm) 0.30 0 -Area of Debridement (cm) - Length 0.6 0 -Area of Debridement (cm) - Width 0.5 0 -Total Square (Area) (cm) 0.30 0 -Tunneling No -Undermining/Tunneling No -Circular Undermining No -Wound/Ulcer Outcome Not Healed Healed- Epithelialized -Ulcer Cleansing Rinsed/ Irrigated with Saline -Foul Odor after Cleansing No -Bioengineered Tissue No -Bleeding Controlled with Pressure -Offloading No -Treatment Response Procedure Tolerated Well -Debridement - Subq, 1st 20sq cm Yes #9 L 2nd Toe -Time 14:42 14:09 -Correct Patient Yes Yes -Correct Side, Site, Position Yes Yes -Correct Procedure Yes Yes -Procedure Performed Yes Yes -Type of Procedure Debridement Debridement -Clinical Debridement Subcutaneous Subcutaneous -Tissue Removed Subcutaneous Subcutaneous -Post Debridement (cm) - Length 0.3 0.2 -Post Debridement (cm) - Width 0.2 0.4 -Post Debridement (cm) - Depth 0.2 0.1 -Total Square (Post) (cm) 0.06 0.08 -Area of Debridement (cm) - Length 0.3 0.2 -Area of Debridement (cm) - Width 0.2 0.4 -Total Square (Area) (cm) 0.06 0.08 -Tunneling No No -Undermining/Tunneling No No -Circular Undermining No No -Wound/Ulcer Outcome Not Healed Not Healed -Ulcer Cleansing Rinsed/ Rinsed/ Irrigated with Irrigated with Saline Saline -Foul Odor after Cleansing No No -Bioengineered Tissue No No -Bleeding Controlled with Pressure Pressure -Offloading Yes Yes -Type of Offloading Surgical Shoe Surgical Shoe -Treatment Response Procedure Procedure Tolerated Well Tolerated Well -Debridement - Subq, 1st 20sq cm No Yes #8 L Grt Toe -Time 14:42 14:09 -Correct Patient Yes Yes -Correct Side, Site, Position Yes Yes -Correct Procedure Yes Yes -Procedure Performed Yes Yes -Type of Procedure Debridement Debridement -Clinical Debridement Subcutaneous Subcutaneous -Tissue Removed Subcutaneous Subcutaneous -Post Debridement (cm) - Length 1.4 1.2 -Post Debridement (cm) - Width 2.0 1.8 -Post Debridement (cm) - Depth 0.1 0.2 -Total Square (Post) (cm) 2.80 2.16 -Area of Debridement (cm) - Length 1.4 1.2 -Area of Debridement (cm) - Width 2.0 1.8 -Total Square (Area) (cm) 2.80 2.16 -Tunneling No No -Undermining/Tunneling No No -Circular Undermining No No -Wound/Ulcer Outcome Not Healed Not Healed -Ulcer Cleansing Rinsed/ Rinsed/ Irrigated with Irrigated with Saline Saline -Foul Odor after Cleansing No -Bioengineered Tissue No No -Bleeding Controlled with Pressure Pressure -Offloading Yes Yes -Type of Offloading Surgical Shoe Surgical Shoe -Treatment Response Procedure Procedure Tolerated Well Tolerated Well -Debridement - Subq, 1st 20sq cm No No Pain Scale: 0-10 Numeric Is Patient Pain Free? Yes - Nurse 3 - General Ulcer D/C NN Start: 02/26/20 09:44 Freq: Status: Active Protocol: Activity Type Activity Date Activity User E-Sign Co-Sign Detail Recorded Client Recorded Date Recorded By Document 03/04/20 15:03 [facility] [id number] 03/04/20 15:04 BM Document 03/18/20 14:29 [facility] [id number] 03/18/20 14:30 BMF 03/04/20 03/18/20 15:03 14:29 Wound Care Nurse 3 12-left 5th toe -Ulcer Cleansing Rinsed/ Irrigated with Saline -Foul Odor after Cleansing No -Primary Dressing Applied Other -Other Dressing santyl -Primary Dressing Covered/Secured with Dry Gauze & Roll Gauze, Secured with Tape #11 L Heel -Ulcer Cleansing Rinsed/ Irrigated with Saline -Foul Odor after Cleansing No -Primary Dressing Applied Other -Other Dressing santyl -Primary Dressing Covered/Secured with Dry Gauze & Roll Gauze, Secured with Tape,Other -Other Covering heel hat #9 L 2nd Toe -Ulcer Cleansing Rinsed/ Rinsed/ Irrigated with Irrigated with Saline Saline -Foul Odor after Cleansing No No -Primary Dressing Applied Other Other -Other Dressing santyl santyl -Primary Dressing Covered/Secured with Dry Gauze & Dry Gauze & Roll Gauze, Roll Gauze, Secured with Secured with Tape Tape #8 L Grt Toe -Ulcer Cleansing Rinsed/ Irrigated with Saline -Foul Odor after Cleansing No No -Primary Dressing Applied Other Other -Other Dressing santyl santyl -Primary Dressing Covered/Secured with Dry Gauze & Dry Gauze & Roll Gauze, Roll Gauze, Secured with Secured with Tape Tape Treatment Response Procedure Procedure Tolerated Well Tolerated Well Pain Scale: 0-10 Numeric Is Patient Pain Free? Yes Yes Vital Signs Pulse Rate (60-100) 73 Pulse Location Monitor Respiratory Rate (12-18) 18 Respiratory rate source Observation Oxygen Delivery Method Room Air Blood Pressure (90/60-120/80) 154/101 H Blood Pressure Mean (mm Hg) 118 Source Monitor Position Sitting Blood Pressure Location Left Forearm WC - Visit Discharge Discharge Condition Stable Stable Ambulatory Status Wheelchair Wheelchair Transportation Private Auto Private Auto Accompanied by daughter daughter Wound debrided: dorsal hallux, distal medial 2nd toe, dorsal lateral fifth toe Laterality: Left Type of Debridement: Excisional debridement Anesthesia Used: 5% Lidocaine Gel Depth: in the subcutaneous layer Percentage of wound debrided: 100 Instrument Used: #15 blade Tissue Removed: fibrous, devitalized subcutaneous, biofilm, slough Severity: Fat Layer Exposed Amount of bleeding with debridement: Mild Bleeding Controlled with: Pressure Patient tolerated procedure well Assessment/Plan Assessment: Right below-knee amputation -following with orthopedic surgeon at [facility]. ulcer central and medial BKA right leg-healed today. resolved left fifth toe blister, now ulcer. Left unstageable heel ulcer, no infection (now grade II)-healed today. Left first, second -stable with no sign of infection. Left third toe ulcer healed today. Peripheral vascular disease. Uncontrolled diabetes. Other comorbidities. Malnutrition Plan: I reviewed and discussed his case. The etiology of the ulcers and components of a comprehensive wound healing plan were reviewed. Subcutaneous excisional debridement was performed on the left foot (first, second, and fifth toes) and he tolerated this. I recommend application of Santyl applied nickel thickness daily. He was reassured that there were no signs of infection. To resume PRAFO boot to offload heel while resting in bed or seated throughout the day.He refuses. I recommended a donut offloading pillow as an alternative because the prafo boot is not well tolerated. To avoid wearing shoes that press on the toes. The right limb is noted to be intact w/ wound vac discontinued. To follow up with surgeon as advised. This site appears to be healed today. I recommend nutritional supplementation including Thong and a well-balanced nutritious diet. The left foot x-rays are unremarkable for any acute injury or infection. Vascular calcification is also seen on the left foot x-ray. He has known vascular disease and ongoing delays in healing. Although his infection is stabilized he has not made significant progress on the left foot. He will follow-up with his vascular surgeon next week to review his CT scan and to discuss potential intervention. I recommend proceeding with any potential intervention options due to his delayed healing. This note will be faxed over for communication purposes. To follow-up with the wound healing center in 2 weeks. I answered all of his questions. I answered all of his family's questions. . I reviewed his medical records from [facility] as the following: He was admitted for a right foot infection and gangrene in early August 2019. 08-22-2019: He had a culture of the Right foot including mixed javier on 08-22-2019. MRI of the foot demonstrated necrosis and potential early osteomyelitis of the toes there is also foci of air in the entire foot. He had an arterial ultrasound demonstrating a right BECKI of 0.29 and toe brachial index of 0.0. The left BECKI was 1.91 and toe brachial index was 0.0. 08-23-2019: Hemoglobin A1c 9.8, [facility] Gordo Figueroa MD. 08-28-2019: Angiogram bilateral lower extremity runoff performed by Yadi Mata MD. a nuclear medicine stress test was also performed which was normal and he also had a normal EKG with no signs of ischemia. 08-29-2019 aortogram with bilateral lower extremity runoff demonstrated significant stenosis and partial occlusion of the right common femoral artery and bilateral superficial femoral artery occlusion. The right below-knee popliteal artery was identified with two-vessel runoff to the foot. On the left lower extremity there was reconstitution at the above-knee p opliteal area. 09-02-2019 right femoral enterectomy with popliteal angioplasty performed. 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 Finn Beltran. The doctors on file the provided treatment for him well [facility] include Dr. Gonzalez for hospital management, Dr. Badillo, Dr. Beltran, Dr. Figueroa. I answered all of his questions. . [id number]. Reviewed today medication and allergy profile reviewed and reconciled. Reviewed 11-19-3029: BMI elevated at 26.7 and he was advised to follow-up with his primary care physician. Diet and activity recommendations were made for healing optimization and improved health. Blood pressure is elevated at 150/69. He was advised to follow-up with his primary care physician. He is a noted fall risk with suspected multiple falls this past year. He was advised to maintain a nonweightbearing status in a wheelchair. His recent stay at the rehabilitation unit is noted and he is already under go ing and exercise program for this condition. He is a current nontobacco user. His prior history of tobacco use is noted. He does not have a living will on file. He reports updated influenza immunization.
== END 2020-03-18 23:59 ==
LOC: WC 13:30
PROVIDERS: PCP Family Medicine Geriatric Medicine; Referring Provider Podiatrist; Visit Provider Podiatrist
CPT/HCPCS: 11042

== ENCOUNTER 2020-04-15 13:00 | Outpatient (RCR) | payer MEDICARE, MEDICAID, SELFPAY ==
[2020-03-19 00:35] VITALS: BP 154/101; PULSE 73; RESP 18; TEMP 35.6
[2020-04-01 09:56] VITALS: BP 159/75; PULSE 98; RESP 16; TEMP 35.2; BMI 26.6
--- NOTE | 2020-04-01 11:43 | PN.PCM_ITS ---
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 Left foot multiple ulcers History of Wound: This 79-year-old male with multiple comorbidities including diabetes, peripheral vascular disease, CAD, and others was seen for bilateral lower extremity ulcers. He did previously have documentation of a right below-knee amputation that was performed [facility] with Dr. Gordo Figueroa. He did follow-up and had a revisional surgery. He has a wound VAC in placed and this was recently discontinued. He did follow-up with his surgeon and continues with his right knee ball winder. He also has a scheduled angiogram procedure performed with his vascular specialist in approximately 1 month. His vascular surgeon is Dr. Finn Beltran MD. he is with his daughter today. They have been applying Santyl to the left foot ulcer sites. Progress of Wound: Stable left. right leg ulcers healed - Physical Exam Vital Signs Temp Pulse Resp BP 95.3 F L 98 16 159/75 H 04/01/20 09:56 04/01/20 09:56 04/01/20 09:56 04/01/20 09:56 General: Alert, Oriented x3, Cooperative, No apparent distress HEENT: Atraumatic Extremities: No cyanosis, Capillary Refill Less than 3 Seconds, No Calf Tenderness - Left, Diminished Peripheral Pulses, Edema - Mild, - - Right below- knee amputation stump with reduced edema. Dorsal contracture lesser toes left. Hypersensitivity to light touch Skin: Ulcer/ Wound - Full epithelialization to right below-knee amputation stump site. No purulence, erythema, string, odor, infection bilateral. There is no deep tissue bone or joint exposed to the left foot ulcer sites of the first and second toes. There is full epithelialization to the fifth toe Wound Measurements and Assessment WC - Nurse 1 - General Ulcer Measurement Start: 04/01/20 09:55 Freq: Status: Active Protocol: Activity Type Activity Date Activity User E-Sign Co-Sign Detail Recorded Client Recorded Date Recorded By Document 04/01/20 09:56 JF [id number] 04/01/20 09:59 JF 04/01/20 09:56 Wound Center Nurse 1 [Ulcer Assessment] 12-left 5th toe -Combined with other wound No -Current Size (cm) - Length 0.1 -Current Size (cm) - Width 0.1 -Current Size (cm) - Depth 0.1 -Total Square Cm 0.01 -Photo Taken No -Epithelialization Large 67-100% -Tunneling No -Undermining/Tunneling No -Circular Undermining No -Exudate Amt None Present -Wound Margin Flat & Intact -Granulation Amt None Present (0 %) -Slough/Fibrin Yes -Necrosis Amt Medium (34-66%) -Necrotic Tissue Type Adherent Slough -Structure Exposed N/A -Texture (Teresita-wound Skin Appearance) Assessed -Moisture (Teresita-wound Skin Appearance Assessed,Dry/ ) Scaly -Color (Teresita-wound Skin Appearance) Assessed,Rubor -Temperature (Teresita-wound Skin No Abnormality Appearance) (Pt Warm) -Tenderness on Palpation (Teresita-wound No Skin Appearance) -Ulcer Cleansing Rinsed/ Irrigated with Saline -Foul Odor after Cleansing No -Anesthetic Used 4% Lidocaine Solution #9 L 2nd Toe -Combined with other wound No -Current Size (cm) - Length 0.1 -Current Size (cm) - Width 0.1 -Current Size (cm) - Depth 0.1 -Total Square Cm 0.01 -Photo Taken No -Epithelialization Small 1-33% -Tunneling No -Undermining/Tunneling No -Circular Undermining No -Exudate Amt None Present -Wound Margin Flat & Intact -Granulation Amt None Present (0 %) -Slough/Fibrin No -Structure Exposed N/A -Texture (Teresita-wound Skin Appearance) Assessed -Moisture (Teresita-wound Skin Appearance Assessed,Dry/ ) Scaly -Color (Teresita-wound Skin Appearance) Assessed,Rubor -Temperature (Teresita-wound Skin No Abnormality Appearance) (Pt Warm) -Tenderness on Palpation (Teresita-wound No Skin Appearance) -Ulcer Cleansing Rinsed/ Irrigated with Saline -Foul Odor after Cleansing No -Anesthetic Used 4% Lidocaine Solution #8 L Grt Toe -Combined with other wound No -Current Size (cm) - Length 1.2 -Current Size (cm) - Width 1.7 -Current Size (cm) - Depth 0.2 -Total Square Cm 2.04 -Photo Taken No -Epithelialization Small 1-33% -Tunneling No -Undermining/Tunneling No -Circular Undermining No -Exudate Amt Small -Exudate Type Serosanguineous -Wound Margin Flat & Intact -Granulation Amt None Present (0 %) -Slough/Fibrin Yes -Necrosis Amt Large (67-100%) -Necrotic Tissue Type Adherent Slough -Structure Exposed N/A -Texture (Teresita-wound Skin Appearance) Assessed -Moisture (Teresita-wound Skin Appearance Assessed,Dry/ ) Scaly -Color (Teresita-wound Skin Appearance) Assessed -Temperature (Teresita-wound Skin No Abnormality Appearance) (Pt Warm) -Tenderness on Palpation (Teresita-wound No Skin Appearance) -Ulcer Cleansing Rinsed/ Irrigated with Saline -Foul Odor after Cleansing No -Anesthetic Used 4% Lidocaine Solution [Edema Assessment] -Lower Limb Edema Present NA WC - Nurse 2 - General Ulcer CM Notes Start: 04/01/20 09:55 Freq: Status: Active Protocol: Activity Type Activity Date Activity User E-Sign Co-Sign Detail Recorded Client Recorded Date Recorded By Document 04/01/20 09:59 JF [id number] 04/01/20 10:03 JF 04/01/20 09:59 Wound Center Nurse 2 [Procedure/Treatment] 12-left 5th toe -Correct Patient No -Correct Side, Site, Position No -Correct Procedure No -Procedure Performed No -Post Debridement (cm) - Length 0 -Post Debridement (cm) - Width 0 -Post Debridement (cm) - Depth 0 -Total Square (Post) (cm) 0 -Area of Debridement (cm) - Length 0 -Area of Debridement (cm) - Width 0 -Total Square (Area) (cm) 0 -Wound/Ulcer Outcome Healed- Epithelialized #9 L 2nd Toe -Time 10:00 -Correct Patient Yes -Correct Side, Site, Position Yes -Correct Procedure Yes -Procedure Performed Yes -Type of Procedure Debridement -Clinical Debridement Epidermis / Dermis -Tissue Removed Epidermis, Dermis -Post Debridement (cm) - Length 0.4 -Post Debridement (cm) - Width 0.2 -Post Debridement (cm) - Depth 0.1 -Total Square (Post) (cm) 0.08 -Area of Debridement (cm) - Length 0.4 -Area of Debridement (cm) - Width 0.2 -Total Square (Area) (cm) 0.08 -Tunneling No -Undermining/Tunneling No -Circular Undermining No -Wound/Ulcer Outcome Not Healed -Ulcer Cleansing Rinsed/ Irrigated with Saline -Foul Odor after Cleansing No -Bioengineered Tissue No -Bleeding Controlled with Pressure -Offloading No -Treatment Response Procedure Tolerated Well -Debridement - Open, 1st 20sq cm Yes #8 L Grt Toe -Time 10:00 -Correct Patient Yes -Correct Side, Site, Position Yes -Correct Procedure Yes -Procedure Performed Yes -Type of Procedure Debridement -Clinical Debridement Epidermis / Dermis -Tissue Removed Epidermis, Dermis -Post Debridement (cm) - Length 1.2 -Post Debridement (cm) - Width 1.7 -Post Debridement (cm) - Depth 0.2 -Total Square (Post) (cm) 2.04 -Area of Debridement (cm) - Length 1.2 -Area of Debridement (cm) - Width 1.7 -Total Square (Area) (cm) 2.04 -Tunneling No -Undermining/Tunneling No -Circular Undermining No -Wound/Ulcer Outcome Not Healed -Ulcer Cleansing Rinsed/ Irrigated with Saline -Foul Odor after Cleansing No -Bioengineered Tissue No -Bleeding Controlled with Pressure -Offloading No -Treatment Response Procedure Tolerated Well -Debridement - Open, 1st 20sq cm No [See Physician Procedure note for Specifics] Pain Scale: 0-10 Numeric [Pain] -Is Patient Pain Free? Yes WC - Nurse 3 - General Ulcer D/C NN Start: 04/01/20 09:55 Freq: Status: Active Protocol: Activity Type Activity Date Activity User E-Sign Co-Sign Detail Recorded Client Recorded Date Recorded By Document 04/01/20 10:16 DL [id number] 04/01/20 10:17 DL 04/01/20 10:16 Wound Care Nurse 3 [Wound Dressing] #9 L 2nd Toe -Ulcer Cleansing Rinsed/ Irrigated with Saline -Foul Odor after Cleansing No -Other Dressing santyl -Primary Dressing Covered/Secured Dry Gauze, with Secured with Tape #8 L Grt Toe -Ulcer Cleansing Rinsed/ Irrigated with Saline -Foul Odor after Cleansing No -Other Dressing santyl -Primary Dressing Covered/Secured Dry Gauze, with Secured with Tape [Post Procedure Tolerated] -Treatment Response Procedure Tolerated Well WC - Visit Discharge [Visit Discharge Information] -Discharge Condition Stable -Ambulatory Status Wheelchair -Transportation Private Auto -Accompanied by daughter Musculoskeletal: No Tenderness to Palpation of Joints or Extremities, Muscle Wasting Neurological: - - Hypersensitivity and lack of normal epicritic sensation light touch bilateral lower extremities Psych/Mental Status: Normal Affect, Appropriate Debridement Note Post-Debridement Measurements/Treatment WC - Nurse 2 - General Ulcer CM Notes Start: 04/01/20 09:55 Freq: Status: Active Protocol: Activity Type Activity Date Activity User E-Sign Co-Sign Detail Recorded Client Recorded Date Recorded By Document 04/01/20 09:59 JF [id number] 04/01/20 10:03 JF 04/01/20 09:59 Wound Center Nurse 2 12-left 5th toe -Correct Patient No -Correct Side, Site, Position No -Correct Procedure No -Procedure Performed No -Post Debridement (cm) - Length 0 -Post Debridement (cm) - Width 0 -Post Debridement (cm) - Depth 0 -Total Square (Post) (cm) 0 -Area of Debridement (cm) - Length 0 -Area of Debridement (cm) - Width 0 -Total Square (Area) (cm) 0 -Wound/Ulcer Outcome Healed- Epithelialized #9 L 2nd Toe -Time 10:00 -Correct Patient Yes -Correct Side, Site, Position Yes -Correct Procedure Yes -Procedure Performed Yes -Type of Procedure Debridement -Clinical Debridement Epidermis / Dermis -Tissue Removed Epidermis, Dermis -Post Debridement (cm) - Length 0.4 -Post Debridement (cm) - Width 0.2 -Post Debridement (cm) - Depth 0.1 -Total Square (Post) (cm) 0.08 -Area of Debridement (cm) - Length 0.4 -Area of Debridement (cm) - Width 0.2 -Total Square (Area) (cm) 0.08 -Tunneling No -Undermining/Tunneling No -Circular Undermining No -Wound/Ulcer Outcome Not Healed -Ulcer Cleansing Rinsed/ Irrigated with Saline -Foul Odor after Cleansing No -Bioengineered Tissue No -Bleeding Controlled with Pressure -Offloading No -Treatment Response Procedure Tolerated Well -Debridement - Open, 1st 20sq cm Yes #8 L Grt Toe -Time 10:00 -Correct Patient Yes -Correct Side, Site, Position Yes -Correct Procedure Yes -Procedure Performed Yes -Type of Procedure Debridement -Clinical Debridement Epidermis / Dermis -Tissue Removed Epidermis, Dermis -Post Debridement (cm) - Length 1.2 -Post Debridement (cm) - Width 1.7 -Post Debridement (cm) - Depth 0.2 -Total Square (Post) (cm) 2.04 -Area of Debridement (cm) - Length 1.2 -Area of Debridement (cm) - Width 1.7 -Total Square (Area) (cm) 2.04 -Tunneling No -Undermining/Tunneling No -Circular Undermining No -Wound/Ulcer Outcome Not Healed -Ulcer Cleansing Rinsed/ Irrigated with Saline -Foul Odor after Cleansing No -Bioengineered Tissue No -Bleeding Controlled with Pressure -Offloading No -Treatment Response Procedure Tolerated Well -Debridement - Open, 1st 20sq cm No Pain Scale: 0-10 Numeric Is Patient Pain Free? Yes - Nurse 3 - General Ulcer D/C NN Start: 04/01/20 09:55 Freq: Status: Active Protocol: Activity Type Activity Date Activity User E-Sign Co-Sign Detail Recorded Client Recorded Date Recorded By Document 04/01/20 10:16 DL [id number] 04/01/20 10:17 DL 04/01/20 10:16 Wound Care Nurse 3 #9 L 2nd Toe -Ulcer Cleansing Rinsed/ Irrigated with Saline -Foul Odor after Cleansing No -Other Dressing santyl -Primary Dressing Covered/Secured with Dry Gauze, Secured with Tape #8 L Grt Toe -Ulcer Cleansing Rinsed/ Irrigated with Saline -Foul Odor after Cleansing No -Other Dressing santyl -Primary Dressing Covered/Secured with Dry Gauze, Secured with Tape Treatment Response Procedure Tolerated Well WC - Visit Discharge Discharge Condition Stable Ambulatory Status Wheelchair Transportation Private Auto Accompanied by daughter Wound debrided: dorsal hallux, distal medial 2nd toe Laterality: Left Type of Debridement: Selective debridement Anesthesia Used: 5% Lidocaine Gel Depth: in the subcutaneous layer Percentage of wound debrided: 100 Instrument Used: #15 blade Tissue Removed: fibrous, devitalized tissue, biofilm, slough Severity: Fat Layer Exposed Amount of bleeding with debridement: Mild Bleeding Controlled with: Pressure Patient tolerated procedure well Assessment/Plan Active Problems (Last Reviewed 09/12/19 @ 08:[address] 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 ulcer central and medial BKA right leg-remains healed today. left fifth toe ulcer healed. Left heel ulcer healed. Hallux and second toe ulcer stable with no infection, delayed healing noted. Peripheral vascular disease. Uncontrolled diabetes. Other comorbidities. Malnutrition Plan: I reviewed and discussed his case. The etiology of the ulcers and components of a comprehensive wound healing plan were reviewed. Subcutaneous excisional debridement was performed on the left foot (first, second toes) and he tolerated this. I recommend application of Santyl applied nickel thickness daily. He was reassured that there were no signs of infection. To resume PRAFO boot to offload heel while resting in bed or seated throughout the day.He refuses. I recommended a donut offloading pillow as an alternative because the prafo boot is not well tolerated. To avoid wearing shoes that press on the toes. The right limb is noted to be intact w/ wound vac discontinued. To follow up with surgeon as advised. This site appears to be healed today. I recommend nutritional supplementation including Thong and a well-balanced nutritious diet. The left foot x-rays are unremarkable for any acute injury or infection. Vascular calcification is also seen on the left foot x-ray. He has known vascular disease and ongoing delays in healing. Although his infection is stabilized he has not made significant progress on the left foot. He he recently completed his vascular surgery follow-up to review his CT scan and to discuss potential intervention. An additional angio with potential intervention is temporarily scheduled for approximately 1 month. I recommend proceeding with any potential intervention options due to his delayed healing. This note will be faxed over for communication purposes. To follow-up with the wound healing center in 2 weeks. I answered all of his questions. I answered all of his family's questions. . I reviewed his medical records from [facility] as the following: He was admitted for a right foot infection and gangrene in early August 2019. 08-22-2019: He had a culture of the Right foot including mixed javier on 08-22-2019. MRI of the foot demonstrated necrosis and potential early osteomyelitis of the toes there is also foci of air in the entire foot. He had an arterial ultrasound demonstrating a right BECKI of 0.29 and toe brachial index of 0.0. The left BECKI was 1.91 and toe brachial index was 0.0. 08-23-2019: Hemoglobin A1c 9.8, he had a right below-knee amputation [facility] with Dr. Gordo Figueroa MD. 08-28-2019: Angiogram bilateral lower extremity runoff performed by Yadi Mata MD. a nuclear medicine stress test was also performed which was normal and he also had a normal EKG with no signs of ischemia. 08-29-2019 aortogram with bilateral lower extremity runoff demonstrated significant stenosis and partial occlusion of the right common femoral artery and bilateral superficial femoral artery occlusion. The right below-knee popliteal artery was identified with two-vessel runoff to the foot. On the left lower extremity there was reconstitution at the above-knee popliteal area. 09-02-2019 right femoral enterectomy with popliteal angioplasty performed. 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 Finn Beltran. The doctors on file the provided treatment for him well [facility] include Dr. Gonzalez for hospital management, Dr. Badillo, Dr. Beltran, Dr. Figueroa. I answered all of his questions. . [id number]. Reviewed today medication and allergy profile reviewed and reconciled. Reviewed 11-19-3029: BMI elevated at 26.7 and he was advised to follow-up with his primary care physician. Diet and activity recommendations were made for healing optimization and improved health. Blood pressure is elevated at 150/69. He was advised to follow-up with his primary care physician. He is a noted fall risk with suspected multiple falls this past year. He was advised to maintain a nonweightbearing status in a wheelchair. His recent stay at the rehabilitation unit is noted and he is already under going and exercise program for this condition. He is a current nontobacco user. His prior history of tobacco use is noted. He does not have a living will on file. He reports updated influenza immunization.
[2020-04-15 13:22] VITALS: BP 133/68; PULSE 81; RESP 18; TEMP 36.1; BMI 26.6
--- NOTE | 2020-04-15 14:49 | PN.PCM_ITS ---
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 He did previously have documentation of a right below- knee amputation that was performed [facility] with Dr. Gordo Figueroa and this has healed. He is break in his prosthetic leg at this time. He had a scheduled angiogram procedure performed and is following up for surgical consultation on Apr 28 to discuss and plan additional vascular surgery intervention for the left lower extremity. His vascular surgeon is Dr. Finn Beltran MD. He needs to follow up with urology prior to his vascular surgery and has that scheduled for next week. They have been applying Santyl to the left foot ulcer sites. Progress of Wound: Stable left - Physical Exam Vital Signs Temp Pulse Resp BP 97 F L 81 18 133/68 H 04/15/20 13:22 04/15/20 13:22 04/15/20 13:22 04/15/20 13:22 General: Alert, Oriented x3, Cooperative, No apparent distress HEENT: Atraumatic Extremities: No cyanosis, Capillary Refill Less than 3 Seconds, No Calf Tenderness, Diminished Peripheral Pulses, Edema Skin: Ulcer/ Wound - no purulence, no erythema, no streaking, no odor. fibrous base hallux, granular base 2nd toe. atrophic and hairless skin Wound Measurements and Assessment WC - Nurse 1 - General Ulcer Measurement Start: 04/01/20 09:55 Freq: Status: Active Protocol: Activity Type Activity Date Activity User E-Sign Co-Sign Detail Recorded Client Recorded Date Recorded By Document 04/15/20 13:15 RB [id number] 04/15/20 13:22 RB 04/15/20 13:15 Wound Center Nurse 1 [Ulcer Assessment] #9 L 2nd Toe -Combined with other wound No -Current Size (cm) - Length 0.4 -Current Size (cm) - Width 0.1 -Current Size (cm) - Depth 0.1 -Total Square Cm 0.04 -Tunneling No -Undermining/Tunneling No -Circular Undermining No -Exudate Amt Small -Exudate Type Serosanguineous -Wound Margin Flat & Intact -Granulation Amt Medium (34-66%) -Granulation Quality [place] -Slough/Fibrin Yes -Necrosis Amt Small (1-33%) -Necrotic Tissue Type Adherent Slough -Structure Exposed N/A -Texture (Teresita-wound Skin Appearance) Assessed -Moisture (Teresita-wound Skin Appearance Maceration ) -Color (Teresita-wound Skin Appearance) Assessed -Temperature (Teresita-wound Skin No Abnormality Appearance) (Pt Warm) -Tenderness on Palpation (Teresita-wound No Skin Appearance) -Ulcer Cleansing Wound Cleanser -Foul Odor after Cleansing No -Anesthetic Used 4% Lidocaine Solution #8 L Grt Toe -Combined with other wound No -Current Size (cm) - Length 1.3 -Current Size (cm) - Width 1.5 -Current Size (cm) - Depth 0.1 -Total Square Cm 1.95 -Tunneling No -Undermining/Tunneling No -Circular Undermining No -Exudate Amt Small -Exudate Type Serosanguineous -Granulation Amt Small (1-33%) -Granulation Quality [place] -Slough/Fibrin Yes -Necrosis Amt Medium (34-66%) -Necrotic Tissue Type Adherent Slough -Structure Exposed N/A -Texture (Teresita-wound Skin Appearance) Assessed -Moisture (Teresita-wound Skin Appearance Assessed, ) Maceration -Color (Teresita-wound Skin Appearance) Assessed -Temperature (Teresita-wound Skin No Abnormality Appearance) (Pt Warm) -Tenderness on Palpation (Teresita-wound No Skin Appearance) -Ulcer Cleansing Wound Cleanser -Foul Odor after Cleansing No -Anesthetic Used 4% Lidocaine Solution WC - Nurse 2 - General Ulcer CM Notes Start: 04/01/20 09:55 Freq: Status: Active Protocol: Activity Type Activity Date Activity User E-Sign Co-Sign Detail Recorded Client Recorded Date Recorded By Document 04/15/20 13:28 [email or web address] [id number] 04/15/20 13:31 JF 04/15/20 13:28 Wound Center Nurse 2 [Procedure/Treatment] #9 L 2nd Toe -Time 13:30 -Correct Patient Yes -Correct Side, Site, Position Yes -Correct Procedure Yes -Procedure Performed Yes -Type of Procedure Debridement -Clinical Debridement Epidermis / Dermis -Tissue Removed Epidermis, Dermis -Post Debridement (cm) - Length 0.4 -Post Debridement (cm) - Width 0.2 -Post Debridement (cm) - Depth 0.1 -Total Square (Post) (cm) 0.08 -Area of Debridement (cm) - Length 0.4 -Area of Debridement (cm) - Width 0.2 -Total Square (Area) (cm) 0.08 -Tunneling No -Undermining/Tunneling No -Circular Undermining No -Wound/Ulcer Outcome Not Healed -Ulcer Cleansing Rinsed/ Irrigated with Saline -Foul Odor after Cleansing No -Bioengineered Tissue No -Bleeding Controlled with Pressure -Offloading Yes -Type of Offloading Surgical Shoe -Treatment Response Procedure Tolerated Well -Debridement - Open, 1st 20sq cm Yes #8 L Grt Toe -Time 13:30 -Correct Patient Yes -Correct Side, Site, Position Yes -Correct Procedure Yes -Procedure Performed Yes -Type of Procedure Debridement -Clinical Debridement Epidermis / Dermis -Tissue Removed Epidermis, Dermis -Post Debridement (cm) - Length 1.4 -Post Debridement (cm) - Width 1.5 -Post Debridement (cm) - Depth 0.1 -Total Square (Post) (cm) 2.10 -Area of Debridement (cm) - Length 1.4 -Area of Debridement (cm) - Width 1.5 -Total Square (Area) (cm) 2.10 -Tunneling No -Undermining/Tunneling No -Circular Undermining No -Wound/Ulcer Outcome Not Healed -Ulcer Cleansing Rinsed/ Irrigated with Saline -Foul Odor after Cleansing No -Bioengineered Tissue No -Bleeding Controlled with Pressure -Offloading Yes -Type of Offloading Surgical Shoe -Treatment Response Procedure Tolerated Well -Debridement - Open, 1st 20sq cm No [See Physician Procedure note for Specifics] Pain Scale: 0-10 Numeric [Pain] -Is Patient Pain Free? Yes WC - Nurse 3 - General Ulcer D/C NN Start: 04/01/20 09:55 Freq: Status: Active Protocol: Activity Type Activity Date Activity User E-Sign Co-Sign Detail Recorded Client Recorded Date Recorded By Document 04/15/20 13:36 [facility] [id number] 04/15/20 13:38 [facility] 04/15/20 13:36 Wound Care Nurse 3 [Wound Dressing] #9 L 2nd Toe -Ulcer Cleansing Rinsed/ Irrigated with Saline -Foul Odor after Cleansing No -Primary Dressing Applied Other -Other Dressing hydrogel -Primary Dressing Covered/Secured Dry Gauze & with Roll Gauze, Secured with Tape #8 L Grt Toe -Ulcer Cleansing Rinsed/ Irrigated with Saline -Foul Odor after Cleansing No -Primary Dressing Applied Other -Other Dressing hydrogel -Primary Dressing Covered/Secured Dry Gauze & with Roll Gauze, Secured with Tape [Post Procedure Tolerated] -Treatment Response Procedure Tolerated Well Pain Scale: 0-10 Numeric [Pain] -Is Patient Pain Free? Yes - Visit Discharge [Visit Discharge Information] -Discharge Condition Stable -Ambulatory Status Wheelchair -Transportation Private Auto -Accompanied by daughter Musculoskeletal: No Tenderness to Palpation of Joints or Extremities, Muscle Wasting, - - dorsal contraction of lesser toes and hallux, left. below knee amputation, right Neurological: Sensory exam intact to light touch and pain Psych/Mental Status: Normal Affect, Appropriate Debridement Note Post-Debridement Measurements/Treatment - Nurse 2 - General Ulcer CM Notes Start: 04/01/20 09:55 Freq: Status: Active Protocol: Activity Type Activity Date Activity User E-Sign Co-Sign Detail Recorded Client Recorded Date Recorded By Document 04/01/20 09:59 [id number] 04/01/20 10:03 Document 04/15/20 13:28 [id number] 04/15/20 13:31 04/01/20 04/15/20 09:59 13:28 Wound Center Nurse 2 12-left 5th toe -Correct Patient No -Correct Side, Site, Position No -Correct Procedure No -Procedure Performed No -Post Debridement (cm) - Length 0 -Post Debridement (cm) - Width 0 -Post Debridement (cm) - Depth 0 -Total Square (Post) (cm) 0 -Area of Debridement (cm) - Length 0 -Area of Debridement (cm) - Width 0 -Total Square (Area) (cm) 0 -Wound/Ulcer Outcome Healed- Epithelialized #9 L 2nd Toe -Time 10:00 13:30 -Correct Patient Yes Yes -Correct Side, Site, Position Yes Yes -Correct Procedure Yes Yes -Procedure Performed Yes Yes -Type of Procedure Debridement Debridement -Clinical Debridement Epidermis / Epidermis / Dermis Dermis -Tissue Removed Epidermis, Epidermis, Dermis Dermis -Post Debridement (cm) - Length 0.4 0.4 -Post Debridement (cm) - Width 0.2 0.2 -Post Debridement (cm) - Depth 0.1 0.1 -Total Square (Post) (cm) 0.08 0.08 -Area of Debridement (cm) - Length 0.4 0.4 -Area of Debridement (cm) - Width 0.2 0.2 -Total Square (Area) (cm) 0.08 0.08 -Tunneling No No -Undermining/Tunneling No No -Circular Undermining No No -Wound/Ulcer Outcome Not Healed Not Healed -Ulcer Cleansing Rinsed/ Rinsed/ Irrigated with Irrigated with Saline Saline -Foul Odor after Cleansing No No -Bioengineered Tissue No No -Bleeding Controlled with Pressure Pressure -Offloading No Yes -Type of Offloading Surgical Shoe -Treatment Response Procedure Procedure Tolerated Well Tolerated Well -Debridement - Open, 1st 20sq cm Yes Yes #8 L Grt Toe -Time 10:00 13:30 -Correct Patient Yes Yes -Correct Side, Site, Position Yes Yes -Correct Procedure Yes Yes -Procedure Performed Yes Yes -Type of Procedure Debridement Debridement -Clinical Debridement Epidermis / Epidermis / Dermis Dermis -Tissue Removed Epidermis, Epidermis, Dermis Dermis -Post Debridement (cm) - Length 1.2 1.4 -Post Debridement (cm) - Width 1.7 1.5 -Post Debridement (cm) - Depth 0.2 0.1 -Total Square (Post) (cm) 2.04 2.10 -Area of Debridement (cm) - Length 1.2 1.4 -Area of Debridement (cm) - Width 1.7 1.5 -Total Square (Area) (cm) 2.04 2.10 -Tunneling No No -Undermining/Tunneling No No -Circular Undermining No No -Wound/Ulcer Outcome Not Healed Not Healed -Ulcer Cleansing Rinsed/ Rinsed/ Irrigated with Irrigated with Saline Saline -Foul Odor after Cleansing No No -Bioengineered Tissue No No -Bleeding Controlled with Pressure Pressure -Offloading No Yes -Type of Offloading Surgical Shoe -Treatment Response Procedure Procedure Tolerated Well Tolerated Well -Debridement - Open, 1st 20sq cm No No Pain Scale: 0-10 Numeric Is Patient Pain Free? Yes Yes - Nurse 3 - General Ulcer D/C NN Start: 04/01/20 09:55 Freq: Status: Active Protocol: Activity Type Activity Date Activity User E-Sign Co-Sign Detail Recorded Client Recorded Date Recorded By Document 04/01/20 10:16 DL [id number] 04/01/20 10:17 DL Document 04/15/20 13:36 BMF [id number] 04/15/20 13:38 BMF 04/01/20 04/15/20 10:16 13:36 Wound Care Nurse 3 #9 L 2nd Toe -Ulcer Cleansing Rinsed/ Rinsed/ Irrigated with Irrigated with Saline Saline -Foul Odor after Cleansing No No -Primary Dressing Applied Other -Other Dressing santyl hydrogel -Primary Dressing Covered/Secured with Dry Gauze, Dry Gauze & Secured with Roll Gauze, Tape Secured with Tape #8 L Grt Toe -Ulcer Cleansing Rinsed/ Rinsed/ Irrigated with Irrigated with Saline Saline -Foul Odor after Cleansing No No -Primary Dressing Applied Other -Other Dressing santyl hydrogel -Primary Dressing Covered/Secured with Dry Gauze, Dry Gauze & Secured with Roll Gauze, Tape Secured with Tape Treatment Response Procedure Procedure Tolerated Well Tolerated Well Pain Scale: 0-10 Numeric Is Patient Pain Free? Yes - Visit Discharge Discharge Condition Stable Stable Ambulatory Status Wheelchair Wheelchair Transportation Private Auto Private Auto Accompanied by daughter daughter Wound debrided: dorsal hallux, distal dorsal 2nd toe Laterality: Left Type of Debridement: Excisional debridement Anesthesia Used: 5% Lidocaine Gel Depth: in the subcutaneous layer Percentage of wound debrided: 100 Instrument Used: #15 blade Tissue Removed: fibrous, devitalized subcutaneous, biofilm, slough Severity: Fat Layer Exposed Amount of bleeding with debridement: Mild Bleeding Controlled with: Pressure Patient tolerated procedure well Assessment/Plan Active Problems (Last Reviewed 09/12/19 @ 08:[address] 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 Hallux and second toe ulcer stable with no infection, delayed healing noted. Peripheral vascular disease. Uncontrolled diabetes. Other comorbidities. Malnutrition Plan: I reviewed and discussed his case. The etiology of the ulcers and components of a comprehensive wound healing plan were reviewed. Subcutaneous excisional debridement was performed on the left foot (first, second toes) and he tolerated this. I recommend application of Santyl applied nickel thickness daily. He was reassured that there were no signs of infection. To resume PRAFO boot to offload heel while resting in bed or seated throughout the day.He refuses. I recommended a donut offloading pillow as an alternative because the prafo boot is not well tolerated. To avoid wearing shoes that press on the toes. I recommend nutritional supplementation including Thong and a well- balanced nutritious diet. The left foot x-rays are unremarkable for any acute injury or infection. Vascular calcification is also seen on the left foot x- ray. He has known vascular disease and ongoing delays in healing. Although his infection is stabilized he has not made significant progress on the left foot. He recently completed his vascular surgery follow-up to review his CT scan and will follow up with vascular surgeon on Apr 28 to discuss surgical options. To follow up with urology in the meantime next week as advised as well. An additional angio with potential intervention is temporarily scheduled for approximately 1 month. To follow-up with the wound healing center in 2 weeks. I answered all of his questions. I answered all of his family's questions. . I reviewed his medical records from [facility] as the following: He was admitted for a right foot infection and gangrene in early August 2019. 08-22-2019: He had a culture of the Right foot including mixed javier on 08-22-2019. MRI of the foot demonstrated necrosis and potential early osteomyelitis of the toes there is also foci of air in the entire foot. He had an arterial ultrasound demonstrating a right BECKI of 0.29 and toe brachial index of 0.0. The left BECKI was 1.91 and toe brachial index was 0.0. 08-23-2019: Hemoglobin A1c 9.8, he had a right below-knee amputation marian ibarra with Dr. Gordo Figueroa MD. 08-28-2019: Angiogram bilateral lower extremity runoff performed by Yadi Mata MD. a nuclear medicine stress test was also performed which was normal and he also had a normal EKG with no signs of ischemia. 08-29-2019 aortogram with bilateral lower extremity runoff demonstrated significant stenosis and partial occlusion of the right common femoral artery and bilateral superficial femoral artery occlusion. The right below-knee popliteal artery was identified with two-vessel runoff to the foot. On the left lower extremity there was reconstitution at the above-knee popliteal area. 09-02-2019 right femoral enterectomy with popliteal angioplasty performed. 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 Finn Beltran. The doctors on file the provided treatment for him well [facility] include Dr. Gonzalez for hospital management, Dr. Badillo, Dr. Beltran, Dr. Figueroa. I answered all of his questions. . [id number]. Reviewed today medication and allergy profile reviewed and reconciled. Reviewed 11-19-3029: BMI elevated at 26.7 and he was advised to follow-up with his primary care physician. Diet and activity recommendations were made for healing optimization and improved health. Blood pressure is elevated at 150/69. He was advised to follow-up with his primary care physician. He is a noted fall risk with suspected multiple falls this past year. He was advised to maintain a nonweightbearing status in a wheelchair. His recent stay at the rehabilitation unit is noted and he is already under going and exercise program for this condition. He is a current nontobacco user. His prior history of tobacco use is noted. He does not have a living will on file. He reports updated influenza immunization.
== END 2020-04-18 23:59 ==
LOC: WC 13:00
PROVIDERS: PCP Family Medicine Geriatric Medicine; Referring Provider Podiatrist; Visit Provider Podiatrist
DX: E11.621 Type 2 diabetes mellitus with foot ulcer (principal); E11.51 Type 2 diabetes mellitus with diabetic peripheral angiopathy without gangrene; Z89.511 Acquired absence of right leg below knee; Z87.891 Personal history of nicotine dependence; L97.522 Non-pressure chronic ulcer of other part of left foot with fat layer exposed; I25.10 Atherosclerotic heart disease of native coronary artery without angina pectoris
CPT/HCPCS: 97597

== ENCOUNTER → 2020-05-11 15:31 | Outpatient (CLI) | payer MEDICARE, MEDICAID, SELFPAY ==
[2020-05-06 08:15] VITALS: BMI 26.6
--- NOTE | 2020-05-11 15:40 | RAD_ITS ---
STUDY: X-RAY - LEFT FOOT CLINICAL: Male, 79 years old. ULCER ON TOP OF LEFT BIG TOE. OSTEOMYELITIS. HX DIABETES. TECHNIQUE: 3 view(s) of the foot. COMPARISON: None. FINDINGS: Distal spurring of the talus. Calcaneal spurring. Normal visualized subtalar, talonavicular, calcaneocuboid, tarsal and tarsometatarsal articulations. Normal metatarsi. Mild hallux valgus at the metatarsophalangeal joint of the great toe. Normal tibial and fibular sesamoid bones. Normal interphalangeal joint of the great toe. Normal phalanges of the great toe. Normal second through fifth metatarsophalangeal joints. Normal interphalangeal joints and phalanges of the lesser toes. Mild subcutaneous edema over the dorsum. No subcutaneous emphysema. Vascular calcifications. RAD/Foot min 3 Views IMPRESSION: No acute bony pathology of the foot. Electronically Signed: Anastacio Oconnor DO at 16:07 EST Tel [phone], Service support ,
[2020-05-11 17:16] LABS: Absolute Lymphocyte Count 2.27 X10^3/uL (0.83-4.51); Absolute Neutrophil Count 6.3 X10^3/uL (2.0-7.7); Basophil# 0.04 X10^3/uL; Basophil% 0.4 % (0-1); Eosinophil# 0.14 X10^3/uL; Eosinophils% 1.4 % (0-5); Hematocrit 44.3 % (40-54); Hemoglobin 14.6 g/dL (13.0-16.5); Lymphocyte # 2.27 X10^3/ul (4.0); Lymphocyte % 22.8 % (19-41); Mean Corpuscular Hgb 30.1 pg (27.0-32.0); Mean Corpuscular Volume 91.3 fL (80-94); Mean Platelet Vol. 10.4 fl (6.2-12.0); Monocyte# 1.16 X10^3/uL; Monocyte% 11.6 % (0-10); NRBC Flagged by Analyzer 0 % (0-5); Neutrophil # 6.28 X10^3/uL (2.7-7.7); Platelet Count 386 K/mm3 (150-450); RBC Distribution Width CV 12.9 % (11.6-14.6); RBC Distribution Width SD 42.7 fl (35.1-43.9); Red Blood Count 4.85 M/mm3 (4.6-6.2)
[2020-05-11 17:23] LABS: Erythrocyte Sedimentation Rate 45 mm/hr (0-20)
[2020-05-11 18:13] LABS: ALB/GLOB Ratio 0.8 RATIO (0.9-2.4); AST(SGOT) 17 U/L (15-37); Alanine Aminotransfer ALT/SGPT 27 U/L (16-61); Albumin, Serum 3.6 g/dL (3.2-5.0); Alkaline Phosphatase 119 U/L (45-117); Anion Gap 5 (5-15); BUN 28 mg/dL (7-18); BUN/Creat Ratio 28.4 RATIO (10-20); CRP 4.83 mg/L (0.0-3.0); Calcium,Total 9.7 mg/dL (8.5-10.1); Chloride 104 mmol/L (98-107); Creatinine, Serum 0.99 mg/dL (0.70-1.30); EST Glomerular Filtration Rate 78 mL/min (>60); Est Glom Filt Rate - Afr Amer 94 mL/min (>60); Globulin 4.8 g/dL (2.2-4.2); Glucose 40 mg/dL (74-106); Potassium 4.3 mmol/L (3.5-5.1); Protein, Total 8.4 g/dL (6.4-8.2); Sodium Level 139 mmol/L (136-145)
== END ==
PROVIDERS: PCP Family Medicine Geriatric Medicine; Referring Provider Podiatrist; Visit Provider Podiatrist
DX: L97.529 Non-pressure chronic ulcer of other part of left foot with unspecified severity (principal); M86.9 Osteomyelitis, unspecified
CPT/HCPCS: 36415; 73630; 80053; 85025; 85652; 86140

== ENCOUNTER 2020-05-13 09:00 | Outpatient (RCR) | payer MEDICARE, MEDICAID, SELFPAY ==
[2020-04-19 00:22] VITALS: BP 133/68; PULSE 81; RESP 18; TEMP 36.1
[2020-05-06 08:15] VITALS: BP 181/77; PULSE 94; RESP 18; TEMP 35.6; BMI 26.6
--- NOTE | 2020-05-06 08:57 | PN.PCM_ITS ---
(1) Blister (nonthermal), left foot, initial encounter Status: Acute Code(s): S90.822A - Blister (nonthermal), left foot, initial encounter Comment: dorsal hindfoot, left (2) Colonization status Status: Acute Code(s): Z22.9 - Carrier of infectious disease, unspecified (3) Peripheral vascular disease Status: Chronic Code(s): I73.9 - Peripheral vascular disease, unspecified (4) Malnutrition Status: Chronic Code(s): E46 - Unspecified protein-calorie malnutrition Comment: protein calorie malnutrition at admission (5) Ulcer of left foot with fat layer exposed Status: Chronic Code(s): L97.522 - Non-pressure chronic ulcer of other part of left foot with fat layer exposed (6) Osteomyelitis Status: Acute Qualifiers: Osteomyelitis location: foot Laterality: left Code(s): M86.9 - Osteomyelitis, unspecified Comment: screening in process due to chronicity of ulcer dorsal hallux Type of Wound Date of Service: 05/06/20 Chief Complaint: Left foot ulcers, 2 History of Wound: This 79-year-old male with multiple comorbidities including diabetes, peripheral vascular disease, CAD, and others was seen for bilateral lower extremity ulcers. He did previously have documentation of a right below- knee amputation that was performed [facility] with Dr. Gordo Figueroa and this has healed. He is break in his prosthetic leg at this time. He has a vascular procedure scheduled for May 25. His vascular surgeon is Dr. Finn Beltran MD. He needs to follow up with urology prior to his vascular surgery intervention. They have been applying Santyl to the left foot ulcer sites. They noticed some dark discoloration about 3 days with a mild odor. They deny redness streaking. Patient reports that he can have bumped his leg while he is moving around during sleeping activities. He is with his daughter today. Progress of Wound: Worsening status left hallux - Physical Exam Vital Signs Temp Pulse Resp BP 96.1 F L 94 18 181/77 H 05/06/20 08:15 05/06/20 08:15 05/06/20 08:15 05/06/20 08:15 General: Alert, Oriented x3, Cooperative, No apparent distress HEENT: Atraumatic Extremities: No cyanosis, Capillary Refill Less than 3 Seconds, No Calf Tenderness, Diminished Peripheral Pulses, Edema Skin: Ulcer/ Wound - No purulence streaking or erythema. The ulcer is 100% fibrous with a central meehan discoloration that is consistent with a worsening status. There is some mild maceration peripherally. No exposed tendon or bone. There is a small superficial serous filled blister to the dorsal medial hindfoot., - - There is no fluctuance, bogginess, or crepitus on palpation periulcer, periblister or remaining part of the foot. Compartments remain soft to palpate left Wound Measurements and Assessment WC - Nurse 1 - General Ulcer Measurement Start: 05/06/20 08:15 Freq: Status: Active Protocol: Activity Type Activity Date Activity User E-Sign Co-Sign Detail Recorded Client Recorded Date Recorded By Document 05/06/20 08:15 RB [id number] 05/06/20 08:19 RB 05/06/20 08:15 Wound Center Nurse 1 [Ulcer Assessment] #9 L 2nd Toe -Combined with other wound No -Current Size (cm) - Length 0.3 -Current Size (cm) - Width 0.3 -Current Size (cm) - Depth 0.1 -Total Square Cm 0.09 -Tunneling No -Undermining/Tunneling No -Circular Undermining No -Exudate Amt Medium -Exudate Type Serosanguineous -Wound Margin Flat & Intact -Granulation Amt Medium (34-66%) -Granulation Quality [place] -Slough/Fibrin Yes -Necrosis Amt Small (1-33%) -Necrotic Tissue Type Adherent Slough -Structure Exposed N/A -Texture (Teresita-wound Skin Appearance) Assessed -Moisture (Teresita-wound Skin Appearance Assessed ) -Color (Teresita-wound Skin Appearance) Assessed -Temperature (Teresita-wound Skin No Abnormality Appearance) (Pt Warm) -Tenderness on Palpation (Teresita-wound No Skin Appearance) -Ulcer Cleansing Wound Cleanser -Foul Odor after Cleansing No #8 L Grt Toe -Combined with other wound No -Current Size (cm) - Length 1.5 -Current Size (cm) - Width 2 -Current Size (cm) - Depth 0.2 -Total Square Cm 3.0 -Tunneling No -Undermining/Tunneling No -Circular Undermining No -Exudate Amt Small -Exudate Type Serosanguineous -Wound Margin Thickened & Rolled Under -Granulation Amt Medium (34-66%) -Granulation Quality [place] -Slough/Fibrin Yes -Necrosis Amt Small (1-33%) -Necrotic Tissue Type Adherent Slough -Structure Exposed N/A -Texture (Teresita-wound Skin Appearance) Assessed -Moisture (Teresita-wound Skin Appearance Assessed, ) Maceration -Color (Teresita-wound Skin Appearance) Assessed -Temperature (Teresita-wound Skin No Abnormality Appearance) (Pt Warm) -Tenderness on Palpation (Teresita-wound No Skin Appearance) -Ulcer Cleansing Wound Cleanser -Foul Odor after Cleansing No -Anesthetic Used 4% Lidocaine Solution WC - Nurse 2 - General Ulcer CM Notes Start: 05/06/20 08:15 Freq: Status: Active Protocol: Activity Type Activity Date Activity User E-Sign Co-Sign Detail Recorded Client Recorded Date Recorded By Document 05/06/20 08:27 JAZMINE [id number] 05/06/20 08:35 JAZMINE 05/06/20 08:27 Wound Center Nurse 2 [Procedure/Treatment] #9 L 2nd Toe -Time 08:34 -Correct Patient Yes -Correct Side, Site, Position Yes -Correct Procedure Yes -Procedure Performed Yes -Type of Procedure Debridement -Clinical Debridement Subcutaneous -Tissue Removed Subcutaneous -Post Debridement (cm) - Length 0.3 -Post Debridement (cm) - Width 0.4 -Post Debridement (cm) - Depth 0.1 -Total Square (Post) (cm) 0.12 -Area of Debridement (cm) - Length 0.3 -Area of Debridement (cm) - Width 0.4 -Total Square (Area) (cm) 0.12 -Tunneling No -Undermining/Tunneling No -Circular Undermining No -Wound/Ulcer Outcome Not Healed -Ulcer Cleansing Rinsed/ Irrigated with Saline -Foul Odor after Cleansing No -Bioengineered Tissue No -Bleeding Controlled with Pressure -Offloading No -Treatment Response Procedure Tolerated Well -Debridement - Subq, 1st 20sq cm No #8 L Grt Toe -Time 08:35 -Correct Patient Yes -Correct Side, Site, Position Yes -Correct Procedure Yes -Procedure Performed Yes -Type of Procedure Debridement -Clinical Debridement Subcutaneous -Tissue Removed Subcutaneous -Post Debridement (cm) - Length 1.6 -Post Debridement (cm) - Width 2.1 -Post Debridement (cm) - Depth 0.2 -Total Square (Post) (cm) 3.36 -Area of Debridement (cm) - Length 1.6 -Area of Debridement (cm) - Width 2.1 -Total Square (Area) (cm) 3.36 -Tunneling No -Undermining/Tunneling No -Circular Undermining No -Wound/Ulcer Outcome Not Healed -Ulcer Cleansing Rinsed/ Irrigated with Saline -Foul Odor after Cleansing No -Bioengineered Tissue No -Bleeding Controlled with Pressure -Offloading No -Treatment Response Procedure Tolerated Well -Debridement - Subq, 1st 20sq cm Yes [See Physician Procedure note for Specifics] Pain Scale: 0-10 Numeric [Pain] -Is Patient Pain Free? Yes - Nurse 3 - General Ulcer D/C NN Start: 05/06/20 08:15 Freq: Status: Active Protocol: Activity Type Activity Date Activity User E-Sign Co-Sign Detail Recorded Client Recorded Date Recorded By Document 05/06/20 08:50 JAZMINE [id number] 05/06/20 08:51 JAZMINE 05/06/20 08:50 Wound Care Nurse 3 [Wound Dressing] #9 L 2nd Toe -Ulcer Cleansing Rinsed/ Irrigated with Saline -Foul Odor after Cleansing No -Other Dressing moist saline today -Primary Dressing Covered/Secured Dry Gauze & with Roll Gauze, Secured with Tape #8 L Grt Toe -Ulcer Cleansing Rinsed/ Irrigated with Saline -Foul Odor after Cleansing No -Other Dressing moist saline today -Primary Dressing Covered/Secured Dry Gauze & with Roll Gauze, Secured with Tape [Post Procedure Tolerated] -Treatment Response Procedure Tolerated Well Pain Scale: 0-10 Numeric [Pain] -Is Patient Pain Free? Yes - Visit Discharge [Visit Discharge Information] -Discharge Condition Stable -Ambulatory Status Wheelchair -Transportation Private Auto -Accompanied by daughter -Notes: Pt instructed on use of Dakins, will start at home. Musculoskeletal: No Tenderness to Palpation of Joints or Extremities, Muscle Was ting, - - Compartment soft to palpate left. Right below-knee amputation Neurological: Sensory exam intact to light touch and pain, - - Altered sensation with hypersensitivity Psych/Mental Status: Normal Affect, Appropriate Debridement Note Post-Debridement Measurements/Treatment [email or web address] - Nurse 2 - General Ulcer CM Notes Start: 05/06/20 08:15 Freq: Status: Active Protocol: Activity Type Activity Date Activity User E-Sign Co-Sign Detail Recorded Client Recorded Date Recorded By Document 05/06/20 08:27 JF [id number] 05/06/20 08:35 JF 05/06/20 08:27 Wound Center Nurse 2 #9 L 2nd Toe -Time 08:34 -Correct Patient Yes -Correct Side, Site, Position Yes -Correct Procedure Yes -Procedure Performed Yes -Type of Procedure Debridement -Clinical Debridement Subcutaneous -Tissue Removed Subcutaneous -Post Debridement (cm) - Length 0.3 -Post Debridement (cm) - Width 0.4 -Post Debridement (cm) - Depth 0.1 -Total Square (Post) (cm) 0.12 -Area of Debridement (cm) - Length 0.3 -Area of Debridement (cm) - Width 0.4 -Total Square (Area) (cm) 0.12 -Tunneling No -Undermining/Tunneling No -Circular Undermining No -Wound/Ulcer Outcome Not Healed -Ulcer Cleansing Rinsed/ Irrigated with Saline -Foul Odor after Cleansing No -Bioengineered Tissue No -Bleeding Controlled with Pressure -Offloading No -Treatment Response Procedure Tolerated Well -Debridement - Subq, 1st 20sq cm No #8 L Grt Toe -Time 08:35 -Correct Patient Yes -Correct Side, Site, Position Yes -Correct Procedure Yes -Procedure Performed Yes -Type of Procedure Debridement -Clinical Debridement Subcutaneous -Tissue Removed Subcutaneous -Post Debridement (cm) - Length 1.6 -Post Debridement (cm) - Width 2.1 -Post Debridement (cm) - Depth 0.2 -Total Square (Post) (cm) 3.36 -Area of Debridement (cm) - Length 1.6 -Area of Debridement (cm) - Width 2.1 -Total Square (Area) (cm) 3.36 -Tunneling No -Undermining/Tunneling No -Circular Undermining No -Wound/Ulcer Outcome Not Healed -Ulcer Cleansing Rinsed/ Irrigated with Saline -Foul Odor after Cleansing No -Bioengineered Tissue No -Bleeding Controlled with Pressure -Offloading No -Treatment Response Procedure Tolerated Well -Debridement - Subq, 1st 20sq cm Yes Pain Scale: 0-10 Numeric Is Patient Pain Free? Yes WC - Nurse 3 - General Ulcer D/C NN Start: 05/06/20 08:15 Freq: Status: Active Protocol: Activity Type Activity Date Activity User E-Sign Co-Sign Detail Recorded Client Recorded Date Recorded By Document 05/06/20 08:50 JAZMINE [id number] 05/06/20 08:51 JAZMINE 05/06/20 08:50 Wound Care Nurse 3 #9 L 2nd Toe -Ulcer Cleansing Rinsed/ Irrigated with Saline -Foul Odor after Cleansing No -Other Dressing moist saline today -Primary Dressing Covered/Secured with Dry Gauze & Roll Gauze, Secured with Tape #8 L Grt Toe -Ulcer Cleansing Rinsed/ Irrigated with Saline -Foul Odor after Cleansing No -Other Dressing moist saline today -Primary Dressing Covered/Secured with Dry Gauze & Roll Gauze, Secured with Tape Treatment Response Procedure Tolerated Well Pain Scale: 0-10 Numeric Is Patient Pain Free? Yes WC - Visit Discharge Discharge Condition Stable Ambulatory Status Wheelchair Transportation Private Auto Accompanied by daughter Notes: Pt instructed on use of Dakins, will start at home. Wound debrided: dorsal hallux, distal 2 toe Laterality: Left Wound Grade/Stage: grade 1 Type of Debridement: Excisional debridement Anesthesia Used: 5% Lidocaine Gel Depth: in the subcutaneous layer Percentage of wound debrided: 100 Instrument Used: #15 blade, Forceps Tissue Removed: fibrous, devitalized subcutaneous, biofilm, slough Severity: Fat Layer Exposed Amount of bleeding with debridement: Mild Bleeding Controlled with: Pressure Patient tolerated procedure well Assessment/Plan Active Problems (Last Reviewed 09/12/19 @ 08:[address] Kyara King, DO) Peripheral vascular disease (Chronic) Malnutrition (Chronic) protein calorie malnutrition at admission Ulcer of left foot with fat layer exposed (Chronic) Blister (nonthermal), left foot, initial encounter (Acute) dorsal hindfoot, left Colonization status (Acute) Osteomyelitis (Acute) screening in process due to chronicity of ulcer dorsal hallux Assessment: Healed right below-knee amputation -following with orthopedic surgeon at [facility]. second toe ulcer, delayed healing noted. Hallux ulcer with exteriorization, colonization versus infection process work-up pending. Osteomyelitis screening initiated for left hallux. Peripheral vascular disease. Uncontrolled diabetes. Other comorbidities. Malnutrition Plan: I reviewed and discussed his case. The etiology of the ulcers and components of a comprehensive wound healing plan were reviewed. Subcutaneous excisional debridement was performed on the left foot (first, second toes) and he tolerated this. I recommend application of quarter strength Dakin solution. A prescription was provided and he was advised on proper use. After the debridement was performed and saline irrigation a wound culture for aerobic, anaerobic, acid-fast, fungal, MRSA PCR was obtained. I recommend updating his labs including CBC, CMP, ESR, C-reactive protein. An x-ray order was also prov ided for the left foot and the results are pending. To monitor for development of local versus systemic illness. I discussed that his hallux ulcer is deteriorating and he has a new blister which is not uncommon with vascular compromise and this may also be very early sign of bacterial contamination versus infection. To resume PRAFO boot to offload heel while resting in bed or seated throughout the day.He refuses. I recommended a donut offloading pillow as an alternative because the prafo boot is not well tolerated. To avoid wearing shoes that press on the toes. To avoid mechanical trauma to this area. I recommend nutritional supplementation including Thong and a well-balanced nutritious diet. He has known vascular disease and ongoing delays in healing. He recently completed his vascular surgery follow-up to review his CT scan and will followed up with vascular surgeon on Apr 28 to discuss surgical options. Surgery is scheduled for May 25 or . An additional angio with potential intervention. To follow-up with the wound healing center in 1 weeks. I answered all of his questions. I answered all of his family's questions. . I reviewed his medical records from [facility] as the following: He was admitted for a right foot infection and gangrene in early August 2019. 08-22-2019: He had a culture of the Right foot including mixed javier on 08-22-2019. MRI of the foot demonstrated necrosis and potential early osteomyelitis of the toes there is also foci of air in the entire foot. He had an arterial ultrasound demonstrating a right BECKI of 0.29 and toe brachial index of 0.0. The left BECKI was 1.91 and toe brachial index was 0.0. 08-23-2019: Hemoglobin A1c 9.8, he had a right below-knee amputation marian ibarra with Dr. Gordo Figueroa MD. 08-28-2019: Angiogram bilateral lower extremity runoff performed by Yadi Mata MD. a nuclear medicine stress test was also performed which was normal and he also had a normal EKG with no signs of ischemia. 08-29-2019 aortogram with bilateral lower extremity runoff demonstrated significant stenosis and partial occlusion of the right common femoral artery and bilateral superficial femoral artery occlusion. The right below-knee popliteal artery was identified with two-vessel runoff to the foot. On the left lower extremity there was reconstitution at the above-knee popliteal area. 09-02-2019 right femoral enterectomy with popliteal angioplasty performed. 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 Finn Beltran. The doctors on file the provided treatment for him well [facility] include Dr. Gonzalez for hospital management, Dr. Badillo, Dr. Beltran, Dr. Figueroa. I answered all of his questions. . [place] 2019. Reviewed today medication and allergy profile reviewed and reconciled. Reviewed 11-19-3029: BMI elevated at 26.7 and he was advised to follow-up with his primary care physician. Diet and activity recommendations were made for healing optimization and improved health. Blood pressure is elevated at 150/69. He was advised to follow-up with his primary care physician. He is a noted fall risk with suspected multiple falls this past year. He was advised to maintain a nonweightbearing status in a wheelchair. His recent stay at the rehabilitation unit is noted and he is already under going and exercise program for this condition. He is a current nontobacco user. His prior history of tobacco use is noted. He does not have a living will on file. He reports updated influenza immunization.
[2020-05-06 11:23] LABS: M R Staph aureus DNA By PCR Negative (Negative); Probe Check PASS; Specimen Processing Control PASS; Staph aureus DNA By PCR POSITIVE (Negative)
[2020-05-13 09:21] VITALS: BP 158/63; PULSE 85; RESP 18; TEMP 36.8; BMI 26.6
[2020-05-13 09:49] VITALS: BP 156/80
--- NOTE | 2020-05-13 10:21 | PN.PCM_ITS ---
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 He did previously have documentation of a right below- knee amputation that was performed [facility] with Dr. Gordo Figueroa and this has healed. He has a vascular procedure scheduled for May 25. His vascular surgeon is Dr. Finn Beltran MD. He needs to follow up with urology prior to his vascular surgery intervention. He did this and is cleared to proceed forward with the procedure. They have been applying Dakin wet-to-dry to the left foot ulcer sites. He obtained x-rays and labs as advised. He denies redness or odor since changing the dressing plan. He is with his daughter today. Progress of Wound: Stable left hallux. Stable second toe - Physical Exam Vital Signs Temp Pulse Resp BP 98.3 F 85 18 156/80 H 05/13/20 09:21 05/13/20 09:21 05/13/20 09:21 05/13/20 09:49 General: Alert, Oriented x3, Cooperative, No apparent distress HEENT: Atraumatic Extremities: No cyanosis, No edema, Capillary Refill Less than 3 Seconds, No Calf Tenderness, Diminished Peripheral Pulses, Tenderness Skin: Ulcer/ Wound - Dry eschar dorsal hallux with peripheral reduced capillary time is consistent with his dysvascular status. There is no visualized bone or tendon however it is in close approximation. No bogginess or fluctuance. Second toe ulcer is pale granular base, - - Skin is very atrophic and the blister site is healed Wound Measurements and Assessment WC - Nurse 1 - General Ulcer Measurement Start: 05/06/20 08:15 Freq: Status: Active Protocol: Activity Type Activity Date Activity User E-Sign Co-Sign Detail Recorded Client Recorded Date Recorded By Document 05/13/20 09:21 RB [id number] 05/13/20 09:24 RB 05/13/20 09:21 Wound Center Nurse 1 [Ulcer Assessment] #9 L 2nd Toe -Combined with other wound No -Current Size (cm) - Length 0.3 -Current Size (cm) - Width 0.5 -Current Size (cm) - Depth 0.1 -Total Square Cm 0.15 -Tunneling No -Undermining/Tunneling No -Circular Undermining No -Exudate Amt Small -Exudate Type Serosanguineous -Wound Margin Flat & Intact -Granulation Amt Medium (34-66%) -Granulation Quality Rote -Slough/Fibrin Yes -Necrosis Amt Small (1-33%) -Necrotic Tissue Type Adherent Slough -Structure Exposed N/A -Texture (Teresita-wound Skin Appearance) Assessed -Moisture (Teresita-wound Skin Appearance Assessed ) -Color (Teresita-wound Skin Appearance) Assessed -Temperature (Teresita-wound Skin No Abnormality Appearance) (Pt Warm) -Tenderness on Palpation (Teresita-wound No Skin Appearance) -Ulcer Cleansing Wound Cleanser -Foul Odor after Cleansing No -Anesthetic Used 5% Lidocaine Gel #8 L Grt Toe -Current Size (cm) - Length 1.5 -Current Size (cm) - Width 2.2 -Current Size (cm) - Depth 0.2 -Total Square Cm 3.30 -Tunneling No -Undermining/Tunneling No -Circular Undermining No -Exudate Amt Small -Exudate Type Serosanguineous -Wound Margin Thickened -Granulation Amt Small (1-33%) -Granulation Quality Rote -Slough/Fibrin Yes -Necrosis Amt Large (67-100%) -Necrotic Tissue Type Adherent Slough -Structure Exposed N/A -Texture (Teresita-wound Skin Appearance) Assessed -Moisture (Teresita-wound Skin Appearance Assessed ) -Color (Teresita-wound Skin Appearance) Assessed -Temperature (Teresita-wound Skin No Abnormality Appearance) (Pt Warm) -Tenderness on Palpation (Teresita-wound No Skin Appearance) -Ulcer Cleansing Wound Cleanser -Foul Odor after Cleansing No -Anesthetic Used 5% Lidocaine Gel WC - Nurse 2 - General Ulcer CM Notes Start: 05/06/20 08:15 Freq: Status: Active Protocol: Activity Type Activity Date Activity User E-Sign Co-Sign Detail Recorded Client Recorded Date Recorded By Document 05/13/20 09:30 JF [id number] 05/13/20 09:33 JF 05/13/20 09:30 Wound Center Nurse 2 [Procedure/Treatment] #9 L 2nd Toe -Time 09:32 -Correct Patient Yes -Correct Side, Site, Position Yes -Correct Procedure Yes -Procedure Performed Yes -Type of Procedure Debridement -Clinical Debridement Epidermis / Dermis -Tissue Removed Epidermis, Dermis -Post Debridement (cm) - Length 0.3 -Post Debridement (cm) - Width 0.5 -Post Debridement (cm) - Depth 0.1 -Total Square (Post) (cm) 0.15 -Area of Debridement (cm) - Length 0.3 -Area of Debridement (cm) - Width 0.5 -Total Square (Area) (cm) 0.15 -Tunneling No -Undermining/Tunneling No -Circular Undermining No -Wound/Ulcer Outcome Not Healed -Ulcer Cleansing Rinsed/ Irrigated with Saline -Foul Odor after Cleansing No -Bioengineered Tissue No -Bleeding Controlled with Pressure -Offloading Yes -Type of Offloading Surgical Shoe -Treatment Response Procedure Tolerated Well -Debridement - Open, 1st 20sq cm Yes #8 L Grt Toe -Time 09:32 -Correct Patient Yes -Correct Side, Site, Position Yes -Correct Procedure Yes -Procedure Performed Yes -Type of Procedure Debridement -Clinical Debridement Epidermis / Dermis -Tissue Removed Epidermis, Dermis -Post Debridement (cm) - Length 1.5 -Post Debridement (cm) - Width 2.2 -Post Debridement (cm) - Depth 0.2 -Total Square (Post) (cm) 3.30 -Area of Debridement (cm) - Length 1.5 -Area of Debridement (cm) - Width 2.2 -Total Square (Area) (cm) 3.30 -Tunneling No -Undermining/Tunneling No -Circular Undermining No -Wound/Ulcer Outcome Not Healed -Ulcer Cleansing Rinsed/ Irrigated with Saline -Foul Odor after Cleansing No -Bioengineered Tissue No -Bleeding Controlled with Pressure -Offloading Yes -Type of Offloading Surgical Shoe -Treatment Response Procedure Tolerated Well -Debridement - Open, 1st 20sq cm No [See Physician Procedure note for Specifics] Pain Scale: 0-10 Numeric [Pain] -Is Patient Pain Free? Yes - Nurse 3 - General Ulcer D/C NN Start: 05/06/20 08:15 Freq: Status: Active Protocol: Activity Type Activity Date Activity User E-Sign Co-Sign Detail Recorded Client Recorded Date Recorded By Document 05/13/20 09:49 RB [id number] 05/13/20 09:50 RB 05/13/20 09:49 Wound Care Nurse 3 [Wound Dressing] #9 L 2nd Toe -Ulcer Cleansing Rinsed/ Irrigated with Saline -Other Dressing hydrogel -Primary Dressing Covered/Secured Dry Gauze,Dry with Gauze & Roll Gauze,Secured with Tape #8 L Grt Toe -Ulcer Cleansing Rinsed/ Irrigated with Saline -Other Dressing hydrogel -Primary Dressing Covered/Secured Dry Gauze,Dry with Gauze & Roll Gauze,Secured with Tape Vital Signs [Blood Pressure] -Blood Pressure (90/60-120/80) 156/80 H -Blood Pressure Mean (mm Hg) 105 -Source Monitor -Position Semi-Fowlers -Blood Pressure Location Right Arm Pain Scale: 0-10 Numeric [Pain] -Is Patient Pain Free? Yes - Visit Discharge [Visit Discharge Information] -Discharge Condition Stable -Ambulatory Status Wheelchair -Transportation Private Auto -Medication Reconcilliation completed No & provided to patient/care provider -Clinical Summary of Care Provided Yes Musculoskeletal: No Tenderness to Palpation of Joints or Extremities, Muscle Wasting, - - Forefoot deformity includes dorsal contraction of all toes left foot. Compartments soft. No bogginess or fluctuance left foot Neurological: Sensory exam intact to light touch and pain - Hypersensitivity Psych/Mental Status: Normal Affect, Appropriate Debridement Note Post-Debridement Measurements/Treatment - Nurse 2 - General Ulcer CM Notes Start: 05/06/20 08:15 Freq: Status: Active Protocol: Activity Type Activity Date Activity User E-Sign Co-Sign Detail Recorded Client Recorded Date Recorded By Document 05/06/20 08:27 JF [id number] 05/06/20 08:35 Document 05/13/20 09:30 JF [id number] 05/13/20 09:33 05/06/20 05/13/20 08:27 09:30 Wound Center Nurse 2 #9 L 2nd Toe -Time 08:34 09:32 -Correct Patient Yes Yes -Correct Side, Site, Position Yes Yes -Correct Procedure Yes Yes -Procedure Performed Yes Yes -Type of Procedure Debridement Debridement -Clinical Debridement Subcutaneous Epidermis / Dermis -Tissue Removed Subcutaneous Epidermis, Dermis -Post Debridement (cm) - Length 0.3 0.3 -Post Debridement (cm) - Width 0.4 0.5 -Post Debridement (cm) - Depth 0.1 0.1 -Total Square (Post) (cm) 0.12 0.15 -Area of Debridement (cm) - Length 0.3 0.3 -Area of Debridement (cm) - Width 0.4 0.5 -Total Square (Area) (cm) 0.12 0.15 -Tunneling No No -Undermining/Tunneling No No -Circular Undermining No No -Wound/Ulcer Outcome Not Healed Not Healed -Ulcer Cleansing Rinsed/ Rinsed/ Irrigated with Irrigated with Saline Saline -Foul Odor after Cleansing No No -Bioengineered Tissue No No -Bleeding Controlled with Pressure Pressure -Offloading No Yes -Type of Offloading Surgical Shoe -Treatment Response Procedure Procedure Tolerated Well Tolerated Well -Debridement - Open, 1st 20sq cm Yes -Debridement - Subq, 1st 20sq cm No #8 L Grt Toe -Time 08:35 09:32 -Correct Patient Yes Yes -Correct Side, Site, Position Yes Yes -Correct Procedure Yes Yes -Procedure Performed Yes Yes -Type of Procedure Debridement Debridement -Clinical Debridement Subcutaneous Epidermis / Dermis -Tissue Removed Subcutaneous Epidermis, Dermis -Post Debridement (cm) - Length 1.6 1.5 -Post Debridement (cm) - Width 2.1 2.2 -Post Debridement (cm) - Depth 0.2 0.2 -Total Square (Post) (cm) 3.36 3.30 -Area of Debridement (cm) - Length 1.6 1.5 -Area of Debridement (cm) - Width 2.1 2.2 -Total Square (Area) (cm) 3.36 3.30 -Tunneling No No -Undermining/Tunneling No No -Circular Undermining No No -Wound/Ulcer Outcome Not Healed Not Healed -Ulcer Cleansing Rinsed/ Rinsed/ Irrigated with Irrigated with Saline Saline -Foul Odor after Cleansing No No -Bioengineered Tissue No No -Bleeding Controlled with Pressure Pressure -Offloading No Yes -Type of Offloading Surgical Shoe -Treatment Response Procedure Procedure Tolerated Well Tolerated Well -Debridement - Open, 1st 20sq cm No -Debridement - Subq, 1st 20sq cm Yes Pain Scale: 0-10 Numeric Is Patient Pain Free? Yes Yes - Nurse 3 - General Ulcer D/C NN Start: 05/06/20 08:15 Freq: Status: Active Protocol: Activity Type Activity Date Activity User E-Sign Co-Sign Detail Recorded Client Recorded Date Recorded By Document 05/06/20 08:50 JF [id number] 05/06/20 08:51 JF Document 05/13/20 09:49 RB [id number] 05/13/20 09:50 RB 05/06/20 05/13/20 08:50 09:49 Wound Care Nurse 3 #9 L 2nd Toe -Ulcer Cleansing Rinsed/ Rinsed/ Irrigated with Irrigated with Saline Saline -Foul Odor after Cleansing No -Other Dressing moist saline hydrogel today -Primary Dressing Covered/Secured with Dry Gauze & Dry Gauze,Dry Roll Gauze, Gauze & Roll Secured with Gauze,Secured Tape with Tape #8 L Grt Toe -Ulcer Cleansing Rinsed/ Rinsed/ Irrigated with Irrigated with Saline Saline -Foul Odor after Cleansing No -Other Dressing moist saline hydrogel today -Primary Dressing Covered/Secured with Dry Gauze & Dry Gauze,Dry Roll Gauze, Gauze & Roll Secured with Gauze,Secured Tape with Tape Treatment Response Procedure Tolerated Well Vital Signs Blood Pressure (90/60-120/80) 156/80 H Blood Pressure Mean (mm Hg) 105 Source Monitor Position Semi-Fowlers Blood Pressure Location Right Arm Pain Scale: 0-10 Numeric Is Patient Pain Free? Yes Yes WC - Visit Discharge Discharge Condition Stable Stable Ambulatory Status Wheelchair Wheelchair Transportation Private Auto Private Auto Accompanied by daughter Medication Reconcilliation completed & No provided to patient/care provider Clinical Summary of Care Provided Yes Notes: Pt instructed on use of Dakins, will start at home. Wound debrided: 2nd toe, hallux Laterality: Left Type of Debridement: Selective debridement Anesthesia Used: 4% Lidocaine Solution Depth: Down to and including healthy tissue Percentage of wound debrided: 100 - 2nd toe, 10 - hallux. perforation were made w/ 15 blade to allow santyl entry Instrument Used: #15 blade Tissue Removed: fibrous, devitalized subcutaneous, biofilm, slough Severity: Fat Layer Exposed Amount of bleeding with debridement: Mild Bleeding Controlled with: Pressure Patient tolerated procedure well Assessment/Plan Active Problems (Last Reviewed 09/12/19 @ 08:[address] 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 second toe ulcer, delayed healing noted. Hallux ulcer with deteriorization, no current infection is suspected. Osteomyelitis screening currently ruled out left hallux. Peripheral vascular disease. Uncontrolled diabetes. Other comorbidities. Malnutrition Plan: I reviewed and discussed his case. The etiology of the ulcers and components of a comprehensive wound healing plan were reviewed. Selective debridement was performed on the left foot (first, second toes) and he tolerated this. I recommend returning to Santyl application applied nickel thickness to both ulcer sites. His culture from last week demonstrated MSSA growth and he has lack of clinical signs of infection therefore this was interpreted as a skin javier contamination. This will be monitored. He did not have leukocytosis or alarming inflammatory markers to suggest osteomyelitis. This will monitor as well. He had low glucose level and I reviewed with him that he should not take his insulin in the afternoon if he plans on skipping lunch. He will follow-up with his primary care physician into ongoing insulin management. An x-ray order was also provided for the left foot and the results did not demonstrate any osseous destruction soft tissue emphysema or foreign body or acute injuries. To continue to monitor for development of local versus systemic illness. I discussed that his hallux ulcer is deteriorating and this is consistent with progressive vascular impairment. The goal is to keep his foot stable and noninfected prior to vascular intervention in May. He understands he still is at risk for partial versus full foot loss. I do not recommend any foot surgery at this time. To resume PRAFO boot to offload heel while resting in bed or seated throughout the day.He refuses. I recommended a donut offloading pillow as an alternative because the prafo boot is not well tolerated. To avoid wearing shoes that press on the toes. To avoid mechanical trauma to this area. I recommend nutritional supplementation including Thong and a well-balanced nutritious diet. He has known vascular disease and ongoing delays in healing. He recently completed his vascular surgery follow-up to review his CT scan and will followed up with vascular surgeon on Apr 28 to discuss surgical options. Surgery is scheduled for May 25. An additional angio with potential intervention. To follow-up with the wound healing center in 1 weeks. I answered all of his questions. I answered all of his family's questions. . I reviewed his medical records from [facility] as the following: He was admitted for a right foot infection and gangrene in early August 2019. 08-22-2019: He had a culture of the Right foot including mixed javier on 08-22-2019. MRI of the foot demonstrated necrosis and potential early osteomyelitis of the toes there is also foci of air in the entire foot. He had an arterial ultrasound demonstrating a right BECKI of 0.29 and toe brachial index of 0.0. The left BECKI was 1.91 and toe brachial index was 0.0. 08-23-2019: Hemoglobin A1c 9.8, he [facility] Dr[facility] Gordo Figueroa MD. 08-28-2019: Angiogram bilateral lower extremity runoff performed by Yadi Mata MD. a nuclear medicine stress test was also performed which was normal and he also had a normal EKG with no signs of ischemia. 08-29-2019 aortogram with bilateral lower extremity runoff demonstrated significant stenosis and partial occlusion of the right common femoral artery and bilateral superficial femoral artery occlusion. The right below-knee popliteal artery was identified with two-vessel runoff to the foot. On the left lower extremity there was reconstitution at the above-knee popliteal area. 09-02-2019 right femoral enterectomy with popliteal angioplasty performed. 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 Finn Beltran. The doctors on file the provided treatment for him well [facility] include Dr. Gonzalez for hospital management, Dr. Badillo, Dr. Beltran, Dr. Figueroa. I answered all of his questions. . [place] 2019. Reviewed today medication and allergy profile reviewed and reconciled. Reviewed 11-19-3029: BMI elevated at 26.7 and he was advised to follow-up with his primary care physician. Diet and activity recommendations were made for healing optimization and improved health. Blood pressure is elevated at 150/69. He was advised to follow-up with his primary care physician. He is a noted fall risk with suspected multiple falls this past year. He was advised to maintain a nonweightbearing status in a wheelchair. His recent stay at the rehabilitation unit is noted and he is already under going and exercise program for this condition. He is a current nontobacco user. His prior history of tobacco use is noted. He does not have a living will on file. He reports updated influenza immunization.
== END 2020-05-18 23:59 ==
LOC: WC 09:00
PROVIDERS: PCP Family Medicine Geriatric Medicine; Referring Provider Podiatrist; Visit Provider Podiatrist
DX: E11.621 Type 2 diabetes mellitus with foot ulcer (principal); L97.522 Non-pressure chronic ulcer of other part of left foot with fat layer exposed; E11.51 Type 2 diabetes mellitus with diabetic peripheral angiopathy without gangrene; E11.69 Type 2 diabetes mellitus with other specified complication; M86.172 Other acute osteomyelitis, left ankle and foot; I25.10 Atherosclerotic heart disease of native coronary artery without angina pectoris; Z89.511 Acquired absence of right leg below knee
CPT/HCPCS: 11042; 87015; 87070; 87075; 87077; 87116; 87186; 87205; 87206; 87640; 97597

== ENCOUNTER 2020-05-18 13:59 | Emergency (ER) | payer MEDICARE, MEDICAID, SELFPAY ==
[2020-05-18] VITALS (11 sets, daily range): BP systolic 101–153; BP diastolic 53–83; PULSE 84–119; RESP 16–24; TEMP 36.3–39.6; O2SAT 89–95; BMI 27.8
--- NOTE | 2020-05-18 14:39 | RAD_ITS ---
STUDY: X-RAY - LEFT FOOT CLINICAL: Male, 79 years old. infection, left great toe TECHNIQUE: 3 view(s) of the foot. 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 There are degenerative changes of the tibiotalar articulation. Calcaneal spur present. There is coarse periosteal thickening of the second through fourth metatarsals. Atherosclerosis noted. There is degenerative arthrosis of the metatarsophalangeal joint of the hallux . Normal tibial and fibular sesamoid bones. Normal interphalangeal joint of the great toe. Normal phalanges of the great toe. Normal second through fifth metatarsophalangeal joints. Flexion contractures of the toes limits evaluation. There is soft tissue swelling of the first toe. RAD/Foot min 3 Views IMPRESSION: 1. No viki destructive bony process or erosion. First digit soft tissue swelling. 2. Second through fourth metatarsal periosteal thickening, stable and can be sequela of chronic infection or venous stasis. 3. Degenerative changes. Electronically Signed: Brooks Taylor MD (Brooks) at 15:23 EST , Service support ,
--- NOTE | 2020-05-18 14:41 | ED.DCSUM_ITS ---
History of Present Illness Chief Complaint: Wound Informant: Patient Onset: Weeks Context: Gradual Onset Narrative: Patient has longstanding lower extremity diabetic foot infections. He has had a right BKA. Patient states he had problems with left great toe infection back in August and was transferred to [facility]. He is currently following with a surgeon there and is scheduled to have a procedure done next Monday. Patient states for the last 3 or 4 weeks his left great toe has been black with some drainage. Patient saw his surgeon today over televisit and there was concern that his left toe looked gangrenous. He was advised to come to the hospital for IV antibiotics. Patient does report having chills that started last evening. He reports mild cough last evening that seems to be improved today. - Past Medical History (1) Decubitus ulcer of foot Status: Chronic Comment: Plantar surface L foot over the first metatarsal head - unstageable (2) Coronary artery disease Status: Chronic (3) Diabetes mellitus type 2, uncontrolled Status: Chronic (4) Hyperlipidemia Status: Chronic (5) Hypertension Status: Chronic (6) Hypothyroidism Status: Chronic (7) Peripheral vascular disease Status: Chronic Past Medical History - Allergies and Home Meds Allergies/Adverse Reactions: Allergies No Known Allergies Allergy (Verified 11/20/19 16:27) Primary Care Physician: Dexter Reyes Chi, MD [Primary Care Provider] - Prior records reviewed: Yes Surgical History: - - Right below-knee amputation, right femoral endarterectomy Smoking Status: Former smoker - Family History Maternal Family History: Reports: No pertinent history Paternal Family History: Reports: No pertinent history, - - he is 79 years old and FH (which he knows little about is not really relavent at this stage of his life Review of Systems General: Reports: Chills Eyes: Denies: Visual changes - bilaterally ENT: Denies: Bilateral ear pain Cardiovascular: Denies: Chest pain Respiratory: Reports: Cough. Denies: Dyspnea, Sputum Gastrointestinal: Denies: Abdominal pain, Nausea, Vomiting, Diarrhea Skin: Reports: Wounds Hematologic: Denies: Easy bruising, Easy bleeding Physical Exam Vital Signs/Narrative: Vital Signs Temp Pulse Resp Pulse Ox 05/18/20 14:00 97.4 F L 119 H 18 95 Inital Vital Signs reviewed: Yes General: Well nourished, Well developed Head: Normocephalic ENT: Moist mucous membranes Neck: Supple Cardiovascular: Regular rate, Regular rhythm Respiratory: Diminished - Lung sounds diminished at the bilateral bases Abdomen: Soft, Nontender Extremities: - - Left great toe is black in color. He is a 3 x 2 cm diameter ulceration over the top of the left great toe. Mild bleeding. Neurological: Alert, Oriented x3 Psychological: Normal affect Diagnostic/Tx/Re-eval Impressions Foot X-Ray 05/18/20 14:39 IMPRESSION: 1. No viki destructive bony process or erosion. First digit soft tissue swelling. 2. Second through fourth metatarsal periosteal thickening, stable and can be sequela of chronic infection or venous stasis. 3. Degenerative changes. Electronically Signed: Brooks Taylor MD (Brooks) at 15:23 EST , Service support , Chest X-Ray 05/18/20 15:05 IMPRESSION: Nonacute portable x-ray examination of the chest. Electronically Signed: Brooks Taylor MD (Brooks) at 15:26 EST , Service support , 05/18/20 14:39 Foot min 3 Views [RAD] Stat 05/18/20 15:05 Chest 1 View (Portable) [RAD] Stat 05/18/20 15:17 Mucosa - Nose SARS-CoV-2 Antigen (Rapid) - Final Laboratory Results 05/18/20 05/18/20 05/18/20 15:17 15:17 15:17 WBC 10.9 RBC 4.42 L Hgb 13.0 Hct 39.7 L MCV 89.8 MCH 29.4 MCHC 32.7 RDW Std Deviation 41.8 RDW Coeff of Sheri 12.6 Plt Count 269 MPV 10.2 Immature Gran % (Auto) 0.500 Neut % (Auto) 86.1 H Lymph % (Auto) 4.3 L Nelson % (Auto) 8.9 Eos % (Auto) 0.1 Baso % (Auto) 0.1 Absolute Neuts (auto) 9.4 H Absolute Lymphs (auto) 0.47 L Nucleated RBC % 0 Sodium 132 L Potassium 4.3 Chloride 99 Carbon Dioxide 26.0 Anion Gap 7 BUN 30 H Creatinine 1.34 H Estim Creat Clear Calc 46.91 Est GFR (MDRD) Af Amer 66 Est GFR (MDRD) Non-Af 55 L BUN/Creatinine Ratio 22.4 H Glucose 100 Lactic Acid 3.0 H* Calcium 8.7 05/18/20 19:50 WBC RBC Hgb Hct MCV MCH MCHC RDW Std Deviation RDW Coeff of Sheri Plt Count MPV Immature Gran % (Auto) Neut % (Auto) Lymph % (Auto) Nelson % (Auto) Eos % (Auto) Baso % (Auto) Absolute Neuts (auto) Absolute Lymphs (auto) Nucleated RBC % Sodium Potassium Chloride Carbon Dioxide Anion Gap BUN Creatinine Estim Creat Clear Calc Est GFR (MDRD) Af Amer Est GFR (MDRD) Non-Af BUN/Creatinine Ratio Glucose Lactic Acid 1.2 Calcium - Medical Decision Making Blood cultures were drawn on patient arrival. He was treated with Zosyn and vancomycin. Lab work is reviewed with him. His lactic acid is elevated at 3. Patient did spike a fever to 103 here that was treated with Tylenol. We initially called [facility] as this is where the patient's vascular surgeon is located that he is scheduled for procedure with. They advised me they have no beds and were not able to accept a transfer. I then spoke with the local pulverizer who came in and saw the patient. She felt that a lot of this current situation is because of his peripheral vascular disease in his leg and without vascular surgery availability should not be treated here. Patient was discussed with multiple hospitals and ultimately accepted at [facility] in [place]. Patient be transferred to [facility] for further evaluation. ED Disposition - Plan for ED Patient: Disposition: [facility] Diagnosis: Diabetic ulcer of left great toe, Sepsis Referrals: Dexter Reyes Chi, MD [Primary Care Provider] -
--- NOTE | 2020-05-18 15:05 | RAD_ITS ---
STUDY: X-RAY CHEST REASON FOR EXAM: Male, 79 years old. infection to left foot TECHNIQUE: AP COMPARISON: None. FINDINGS: Mild fibrotic changes in the lung bases but no airspace consolidation. There is no demonstrated pleural abnormality. Normal size heart. Normal mediastinum and bere. Normal visualized pulmonary arteries. There is atherosclerotic calcification of the aortic arch with tortuosity. Normal visualized thoracic spine. There are degenerative changes of the bilateral shoulders. There is no demonstrated abnormality of the visualized soft tissue structures of the upper abdomen. RAD/Chest 1 View (Portable) IMPRESSION: Nonacute portable x-ray examination of the chest. Electronically Signed: Brooks Taylor MD (Brooks) at 15:26 EST , Service support ,
[2020-05-18 15:43] LABS: Absolute Lymphocyte Count 0.47 X10^3/uL (0.83-4.51); Absolute Neutrophil Count 9.4 X10^3/uL (2.0-7.7); Basophil# 0.01 X10^3/uL; Basophil% 0.1 % (0-1); Eosinophil# 0.01 X10^3/uL; Eosinophils% 0.1 % (0-5); Hematocrit 39.7 % (40-54); Lymphocyte # 0.47 X10^3/ul (4.0); Lymphocyte % 4.3 % (19-41); Mean Corp Hgb Conc 32.7 g/dL (32-36); Mean Corpuscular Hgb 29.4 pg (27.0-32.0); Mean Corpuscular Volume 89.8 fL (80-94); Mean Platelet Vol. 10.2 fl (6.2-12.0); Monocyte# 0.97 X10^3/uL; Monocyte% 8.9 % (0-10); NRBC Flagged by Analyzer 0 % (0-5); Neutrophil % 86.1 % (47-70); POSITIVE DIFFERENTIAL YES; Platelet Count 269 K/mm3 (150-450); RBC Distribution Width CV 12.6 % (11.6-14.6); RBC Distribution Width SD 41.8 fl (35.1-43.9); Red Blood Count 4.42 M/mm3 (4.6-6.2); White Blood Count 10.9 K/mm3 (4.4-11.0)
[2020-05-18 15:45] LABS: Differential Indicated SCAN CRITERIA MET
[2020-05-18 15:47] LABS: Anion Gap 7 (5-15); BUN 30 mg/dL (7-18); BUN/Creat Ratio 22.4 RATIO (10-20); Calcium,Total 8.7 mg/dL (8.5-10.1); Chloride 99 mmol/L (98-107); Creatinine, Serum 1.34 mg/dL (0.70-1.30); EST Glomerular Filtration Rate 55 mL/min (>60); Est Glom Filt Rate - Afr Amer 66 mL/min (>60); Estimated Creatinine Clearance 46.91 ml/min; Glucose 100 mg/dL (74-106); Potassium 4.3 mmol/L (3.5-5.1); Sodium Level 132 mmol/L (136-145)
[2020-05-18] MEDS: Acetaminophen 500 MG Tablet 1000 MG PO (15:56)
[2020-05-18] MEDS: 0.9% Normal Saline 1,000 ML 999 ML IV ×2 (16:55→18:24)
--- NOTE | 2020-05-18 18:09 | CON.PCM_ITS ---
Problem List (1) Critical lower limb ischemia Status: Acute (2) Peripheral vascular disease Status: Chronic (3) Ulcer of left foot with fat layer exposed Status: Chronic (4) History of right below knee amputation Status: Resolved Comment: Reason for Consult Date of Consultation: 05/18/20 Reason for Consultation: Black toe with infection concern History of Present Illness: The patient is a 79 year old M who is well-known to me at the wound healing center. He is previously treated for chronic arterial disease related dorsal hallux ulcer that has remained stable while he is waiting to get vascular surgery intervention with Dr. Beltran at [facility]. This procedure is scheduled for May 25, 2020. He has been applying Santyl and recently Dakin's to this ulcer. He relates this rapidly started changing colors and he did not feel well and this progressed within the past day to a worsening status. He had a telehealth visit with his vascular surgeon who identified that his toe was starting to turn necrotic and he recommended admission for IV antibiotics. This patient elected to proceed to [facility] for IV antibiotics and eventual transfer to have his vascular surgery completed. He denies odor. He has continued drainage. He denies known redness. Upon evaluation in the emergency room it is difficult for this patient to stay on track with answering questions and he is talking a lot in detail about when he had his prior right below-knee amputation. I talked to his daughter who relates the color started to change this past Monday and he refused to go to the hospital for evaluation. Over the past day she reports he rapidly started to decline with significant fatigue, chills, further dark discoloration the toe, and drainage. Past Medical History Past Medical History (Chronic Problems): Chronic Problems (Last Reviewed 09/12/19 @ 08:[address] 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 Kyara King DO) Diabetes E11.9 Dyslipidemia E78.5 Gangrene of right foot I96 Hypothyroid E03.9 Hypertension I10 Allergies No Known Allergies Allergy (Verified 11/20/19 16:27) Home Medications: Ambulatory Orders Medication Instructions Recorded Acetaminophen [Tylenol] 1,000 mg PO Q8H PRN 09/11/19 Atorvastatin Calcium [Lipitor] 40 mg PO QHS 09/11/19 Levothyroxine [Synthroid] 25 mcg PO DAILY 09/11/19 Lisinopril [Prinivil] 10 mg PO QHS 09/11/19 Metformin HCl 1,000 mg PO BID 09/11/19 Cholecalciferol (Vitamin D3) 1,000 unit PO DAILY 05/18/20 [Vitamin D3] Citalopram [Celexa] 10 mg PO DAILY 05/18/20 Collagenase [Santyl] 1 applic TP DAILY 05/18/20 Gabapentin [Neurontin] 600 mg PO BID 05/18/20 Insulin Glargine [Lantus SoloStar 30 units SC QHS 05/18/20 Pen] Insulin Lispro [Humalog KwikPen] 30 unit SC TIDCM 05/18/20 Metoprolol(XL)Succ [Toprol Xl 25 mg PO DAILY 05/18/20 (Beta Leander)] Surgical History: Surgical History (Last Reviewed 09/12/19 @ 08:[address] Kyraa King DO) Amputation below knee S88.119A Surgical History: - - Right below-knee amputation, right femoral endarterectomy Psychiatric History: No pertinent psych hx Smoking Status: Former smoker - *Family History Maternal History Items: No pertinent history Paternal History Items: No pertinent history, - - he is 79 years old and FH (which he knows little about is not really relavent at this stage of his life Review of Systems Constitutional: Reports: Chills, Fatigue Cardiovascular: Reports: Claudication. Denies: Chest Pain Respiratory: Reports: Cough Gastrointestinal: Denies: Nausea, Vomiting Musculoskeletal: Reports: Foot Pain - And sensitivity, Leg Pain Skin: Reports: Skin Changes, Wounds Neurological: Reports: Incoordination, Numbness Patient Problems: Active and Suspected Problems (Last Reviewed 09/12/19 @ 08:[address] Kyara King, DO) Critical lower limb ischemia (Acute) Diabetic ulcer of left great toe (Acute) Sepsis (Acute) - Physical Exam Vitals/I&O's: Vital Signs Temp Pulse Resp BP Pulse Ox 99.3 F H 96 20 H 107/53 L 92 05/18/20 17:24 05/18/20 17:40 05/18/20 17:40 05/18/20 17:40 05/18/20 17:43 Oxygen Flow Rate (L/min) 2 Oxygen Delivery Method Nasal Cannula Weight: 87.997 kg Body Mass Index (BMI) 27.8 Intake and Output for Last 24 Hours 05/16/20 05/17/20 05/18/20 23:59 23:59 23:59 Intake Total 375 / 375 Balance 375 / 375 General: Alert, Cooperative, Confused - Intermittently HEENT: Atraumatic Extremities: Cyanosis - Left hallux is cold to touch with mottled violaceous color of the entire hallux extending to the sulcus level., Diminished Peripheral Pulses, Tenderness Skin: Ulcer/ Wound - Dry eschar to the dorsal hallux has expanded in size and there is some moist serosanguineous drainage. There is no odor or purulence on expression. There is no bogginess or fluctuance on palpation. There is an overt dysvascular progression of his forefoot compared to last week's clinic evaluation, - - There is some erythema that extends adjacent to the hallux. His compartments remain soft. He has no hair and his skin is atrophic Lymphatic: - - No popliteal adenopathy, left Neurological: - - Hypersensitivity to light touch left foot consistent with prior exams Psych/Mental Status: Restless Microbiology Past 72 Hours 05/18/20 15:17 Mucosa - Nose SARS-CoV-2 Antigen (Rapid) - Final Laboratory Results 05/18/20 15:17: WBC 10.9, RBC 4.42 L, Hgb 13.0, Hct 39.7 L, MCV 89.8, MCH 29.4, MCHC 32.7, RDW Std Deviation 41.8, RDW Coeff of Sheri 12.6, Plt Count 269, MPV 10.2, Immature Gran % (Auto) 0.500, Neut % (Auto) 86.1 H, Lymph % (Auto) 4.3 L, Greer % (Auto) 8.9, Eos % (Auto) 0.1, Baso % (Auto) 0.1, Absolute Neuts (auto) 9.4 H, Absolute Lymphs (auto) 0.47 L, Nucleated RBC % 0 05/18/20 15:17: Sodium 132 L, Potassium 4.3, Chloride 99, Carbon Dioxide 26.0, Anion Gap 7, BUN 30 H, Creatinine 1.34 H, Estim Creat Clear Calc 46.91, Est GFR (MDRD) Af Amer 66, Est GFR (MDRD) Non-Af 55 L, BUN/Creatinine Ratio 22.4 H, Glucose 100, Calcium 8.7 05/18/20 15:17: Lactic Acid 3.0 H* Current Medications Sodium Chloride () 1,000 mls @ 999 mls/hr IV .Q1H1M HEATHER Stop: 05/18/20 18:30 Last Admin: 05/18/20 16:55 Dose: 999 mls/hr Documented by: Assessment/Plan All Active Problems (Last Reviewed 09/12/19 @ 08:[address] Kyara King, DO) History of right below knee amputation (Resolved) Acute blood loss anemia (Acute) Decubitus ulcer of foot, unstageable (Resolved) Cellulitis (Resolved) Acute renal failure (Acute) Hyperkalemia (Acute) Hypomagnesemia (Resolved) Hyponatremia (Acute) Cellulitis of right lower limb (Acute) Non-pressure chronic ulcer of unspecified part of right lower leg with fat layer exposed (Resolved) Right leg pain (Acute) Ulcer of right lower extremity with necrosis of muscle (Acute) Pressure ulcer, heel, left, unstageable (Acute) Blister of toe of left foot without infection (Acute) Tinea unguium (Acute) Blister (nonthermal), left foot, initial encounter (Resolved) Colonization status (Acute) Osteomyelitis (Ruled-out) Critical lower limb ischemia (Acute) Diabetic ulcer of left great toe (Acute) Sepsis (Acute) cyanotic left hallux critical limb ischemia known prior peripheral vascular disease prior right lower extremity below knee amputation infection left foot His case was reviewed. He is febrile (102.9) with significant cyanosis and tissue loss to left hallux extending to sulcus level. This toe is cold to touch and is mottled. The toe is firm to touch without bogginess or fluctuance. There is no odor or purulence on expression. I recommend urgent vascular surgery intervention which is not available at this time at [facility]. I do not recommend IV antibiotics as primary treatment or amputation w/ staged non urgent vascular intervention. I recommend transfer to hospital with available vascular intervention to minimize limb loss given his critical rapid advancement. He is at risk of serious illness and further limb loss due to this condition. It is noted other nearby hospitals are not taking transfers at this time such as [facility] or [facility], and other options will be pursued if a vailable. This was discussed with the patient and he understands his care plan will be determined according to availability during this challenging time. He had prior vascular work up and had planned vascular left lower extremity intervention planned for May [address] Beltran. His prior bilateral vascular intervention and work up was reviewed as the following: on 08-28-2019, angiogram bilateral lower extremity runoff performed by Yadi Mata MD. On 08-29-2019 aortogram with bilateral lower extremity runoff demonstrated significant stenosis and partial occlusion of the right common femoral artery and bilateral superficial femoral artery occlusion. The right below-knee popliteal artery was identified with two-vessel runoff to the foot. On the left lower extremity there was reconstitution at the above-knee popliteal area. 09-02-2019 right femoral enterectomy with popliteal angioplasty performed. 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 Finn arias. Labs were reviewed with WBC 10.9 and elevated lactic acid of 3.0. IV antibiotics of vancomycin and zosyn were started. Xrays of foot were reviewed (AP, lateral, oblique) without fracture, dislocation, soft tissue emphysema, acute osseous destruction. Hallux edema and vascular calcification is noted. Xray of chest is without acute findings. I recommend keeping this toe and foot as dry and stable as possible with betadine wet to dry dressing. This case was discussed with ER physician, Dr. Cooley and hospitalist, Dr. Cui. This case was also discussed with his daughter. Thank you for the consultation. Please do not hesitate to call if you have any questions. Ada Peng DPM, [facility] [phone]
[2020-05-18 19:30] LABS: Reflex Lactate? Y
[2020-05-18 20:49] LABS: Lactic Acid 1.2 mmol/L (0.4-1.9)
[2020-05-19 00:06] VITALS: BP 112/64; PULSE 91; RESP 20; TEMP 37.5; O2SAT 93
== END 2020-05-19 00:12 | disposition short-term general hospital (02) ==
PROVIDERS: Emergency Provider Emergency Medicine; PCP Family Medicine Geriatric Medicine
DX: E11.621 Type 2 diabetes mellitus with foot ulcer (principal); L97.529 Non-pressure chronic ulcer of other part of left foot with unspecified severity; A41.9 Sepsis, unspecified organism; I25.10 Atherosclerotic heart disease of native coronary artery without angina pectoris; E11.51 Type 2 diabetes mellitus with diabetic peripheral angiopathy without gangrene; E03.9 Hypothyroidism, unspecified; E78.5 Hyperlipidemia, unspecified; I10 Essential (primary) hypertension; Z87.891 Personal history of nicotine dependence; Z79.4 Long term (current) use of insulin; Z79.899 Other long term (current) drug therapy
CPT/HCPCS: 36415; 71045; 73630; 80048; 83605; 85025; 87040; 87077; 87149; 87186; 87426; 96361; 96365; 96367; 99285; J7030; A4216

== ENCOUNTER → 2021-03-10 16:02 | Outpatient (CLI) | payer MEDICARE, MEDICAID, SELFPAY ==
[2021-03-10 17:18] LABS: Absolute Neutrophil Count 5.5 X10^3/uL (2.0-7.7); Basophil# 0.03 X10^3/uL; Basophil% 0.3 % (0-1); Eosinophil# 0.11 X10^3/uL; Eosinophils% 1.3 % (0-5); Hematocrit 35.9 % (40-54); Hemoglobin 11.5 g/dL (13.0-16.5); Lymphocyte % 19.6 % (19-41); Mean Corpuscular Hgb 28.3 pg (27.0-32.0); Mean Corpuscular Volume 88.4 fL (80-94); Mean Platelet Vol. 10.4 fl (6.2-12.0); Monocyte# 1.23 X10^3/uL; Monocyte% 14.2 % (0-10); NRBC Flagged by Analyzer 0 % (0-5); Neutrophil # 5.45 X10^3/uL (2.7-7.7); Neutrophil % 62.6 % (47-70); Platelet Count 317 K/mm3 (150-450); RBC Distribution Width CV 15.4 % (11.6-14.6); RBC Distribution Width SD 49.5 fl (35.1-43.9); Red Blood Count 4.06 M/mm3 (4.6-6.2); White Blood Count 8.7 K/mm3 (4.4-11.0)
[2021-03-10 17:35] LABS: ALB/GLOB Ratio 0.7 RATIO (0.9-2.4); AST(SGOT) 16 U/L (15-37); Alanine Aminotransfer ALT/SGPT 27 U/L (16-61); Albumin, Serum 3.3 g/dL (3.2-5.0); Alkaline Phosphatase 150 U/L (45-117); Anion Gap 5 (5-15); BUN 47 mg/dL (7-18); BUN/Creat Ratio 25.3 RATIO (10-20); Chloride 102 mmol/L (98-107); Creatinine, Serum 1.86 mg/dL (0.70-1.30); EST Glomerular Filtration Rate 37 mL/min (>60); Est Glom Filt Rate - Afr Amer 45 mL/min (>60); Globulin 4.8 g/dL (2.2-4.2); Glucose 235 mg/dL (74-106); Potassium 3.9 mmol/L (3.5-5.1); Protein, Total 8.1 g/dL (6.4-8.2); Sodium Level 136 mmol/L (136-145); Thyroid Stim Hormone (TSH) 2.79 uIU/mL (0.358-3.74)
[2021-03-10 17:36] LABS: Vitamin D,25 Hydroxy 28.2 ng/mL
== END ==
PROVIDERS: PCP Family Medicine Geriatric Medicine; Visit Provider Family Medicine Geriatric Medicine
DX: E11.9 Type 2 diabetes mellitus without complications (principal); I10 Essential (primary) hypertension; E55.9 Vitamin D deficiency, unspecified
CPT/HCPCS: 36415; 80053; 82306; 84443; 85025

== ENCOUNTER 2021-05-17 12:03 | Emergency (ER) | payer MEDICARE, MEDICAID, SELFPAY ==
[2021-05-17 12:04] VITALS: BP 127/60; PULSE 64; RESP 18; TEMP 36.4; O2SAT 98; BMI 32.3
[2021-05-17 14:51] VITALS: BP 147/79; PULSE 64; RESP 17; O2SAT 96
--- NOTE | 2021-05-17 14:51 | CT_ITS ---
STUDY: CT BRAIN WITHOUT CONTRAST REASON FOR EXAM: Male, 80 years old. HEADACHE Papilledema Individualized dose optimization techniques were used for this CT. TECHNIQUE: Transaxial CT imaging of the brain was performed without administration of intravenous contrast material. COMPARISON: None FINDINGS: There are calcifications noted in the distal vertebral arteries. There are calcifications noted in the cavernous carotid arteries. This is consistent for atherosclerotic disease. Normal calvarium. Normal soft tissues. There is mild cerebral atrophy with widening of the extra-axial spaces and ventricular dilatation. There are areas of decreased attenuation within the white matter tracts of the supratentorial brain, consistent with microvascular disease changes. Normal basal ganglia and thalami. Normal brainstem. There is mild cerebellar atrophy. There is no intracranial hemorrhage. There are no findings of an acute ischemic infarction. Normal visualized paranasal sinuses. ASPECTS Score for Acute Strokes: 03/28 CT/Brain/Head without Contrast IMPRESSION: There are no acute findings. Chronic involutional changes of the brain. Electronically Signed: Antony Vasques MD at 15:56 EST , Service support ,
--- NOTE | 2021-05-17 15:03 | EDS_ITS ---
HPI History of Present Illness Chief Complaint: Eye Problem Informant: patient Onset/Context/Timing Location: Bilateral Eyes Onset: Month(s) Context: Gradual Onset Timing: Continuous Worsened by: Nothing Relieved by: Nothing Associated Symptoms Associated Symptoms - Eyes: Negative for Burning, Crusting, Drainage, Eyelid swelling, Foreign body sensation, Itching, Matting and Pain History of injury: No Narrative Narrative: Patient presents with changes in his vision that have been getting progressively worse over the last couple months. Patient states his vision is getting dark. Patient states it is worse in his right eye than his left. Patient states he saw his eye doctor for this. Patient states that his eye doctor noticed a cataract in the back of his eye and that he needed to see a specialist for that. Patient saw his primary care physician today who referred him to the emergency department for swelling in his eyes. [facility] Medical History (Updated 05/17/21 @ 16:[address] Jesse Angel, DO) Diabetes Dyslipidemia Gangrene of right foot Hypertension Hypothyroid Home Medications acetaminophen 1,000 mg PO Q8H PRN 09/11/19 [History Last Taken 05/17/20 16:00] atorvastatin 40 mg PO QHS 09/11/19 [History Last Taken 05/17/20] levothyroxine 25 mcg PO DAILY 09/11/19 [History Last Taken 05/18/20] lisinopril 10 mg PO QHS 09/11/19 [History Last Taken 05/17/20] metformin 1,000 mg PO BID 09/11/19 [History Last Taken 05/18/20] cholecalciferol (vitamin D3) 1,000 unit PO DAILY 05/18/20 [History Last Taken 05/18/20] citalopram 10 mg PO DAILY 05/18/20 [History Last Taken 05/18/20] collagenase clostridium histo. 1 applic TP DAILY 05/18/20 [History Last Taken 05/18/20] gabapentin 600 mg PO BID 05/18/20 [History Last Taken 05/18/20] insulin glargine 30 units SC QHS 05/18/20 [History Last Taken 05/17/20] insulin lispro 30 unit SC TIDCM 05/18/20 [History Last Taken 05/18/20] metoprolol succinate 25 mg PO DAILY 05/18/20 [History Last Taken 05/18/20] aspirin 81 mg PO DAILY 05/17/21 [History Last Taken Unknown] Allergy/AdvReac Type Severity Reaction Status Date / Time No Known Allergies Allergy Verified 05/17/21 12:07 Surgical History (Updated 05/17/21 @ 15:[address] Jesse Angel DO) Amputation below knee S/P cubital tunnel release Social History Smoking Status: Former smoker ROS ROS ED Constitutional Constitutional ED: Denies chills or fever(s) Eyes Eyes: Reports blurry vision and change in vision ENT ENT ED: Denies rhinorrhea or sore throat Cardiovascular Cardiovascular: Denies chest pain or palpitations Respiratory/Chest Respiratory/Chest: Denies cough or dyspnea Gastrointestinal Gastrointestinal: Denies nausea or vomiting Genitourinary Genitourinary ED: Denies dysuria or hematuria Musculoskeletal Musculoskeletal: Denies back pain or neck pain Integumentary Denies abscess or rash Neurologic Neurologic: Denies headache(s) or weakness Allergic/Immunologic Allergic/Immunologic ED: Denies mouth swelling or urticaria EXAM Physical Exam Const Vital Signs: 05/17/21 12:04 05/17/21 14:51 Temperature 97.5 F L Temperature Source Temporal Pulse Rate 64 64 Respiratory Rate 18 17 Blood Pressure 127/60 H 147/79 H Blood Pressure Mean 82 101 Pulse Ox 98 96 Oxygen Delivery Method Room Air Room Air Positive well nourished and well developed General Appearance ED: well developed HEENT atraumatic Eyes General Eye ED: Yes normal light reflex Alignment: alignment normal Periorbital: periorbital findings normal Eyelid: eyelids normal Conjunctiva: conjunctiva normal Sclera: sclera normal Pupil: PERRL EOM: Negative for EOM abnormal Direct Ophthalmoscopy: normal light reflex, papilledema and anterior chamber normal Neck supple and no JVD Resp normal respiratory effort and clear to auscultation bilaterally Cardio regular rate and regular rhythm GI non-tender Palpation: soft Neuro oriented x3, CN's II-XII intact bilaterally, moves all extremities and no sensory deficits noted Sensorium / Orientation: alert Motor Exam: strength 5/5 throughout MDM MDM MDM Narrative Medical decision making narrative: CT scan of the brain was obtained. There is no acute intracranial abnormality noted. There are chronic involutional changes of the brain. This was interpreted by the radiologist and reviewed by myself. CBC was within normal limits. Comprehensive metabolic profile showed an elevated BUN of 66 and creatinine of 2.28. These are slightly increased compared to prior results. Urinalysis was within normal limits. Patient feels well enough to go home. Patient states that his visual changes have been getting progressively worse for few months. 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 Patient was instructed to follow-up with his job putter up and ticket preparer as scheduled. Case was discussed with Dr. Reyes. I discussed his findings with him. He will follow up with the patient in his office this week. Patient understood and was agreeable with the plan. All questions were answered. Lab Data Attestation: I reviewed the patient's lab results. Labs: Laboratory Tests 05/17/21 05/17/21 05/17/21 Range/Units 15:26 15:17 15:17 WBC 9.6 (4.4-11.0) K/mm3 RBC 4.34 L (4.6-6.2) M/mm3 Hgb 12.1 L (13.0-16.5) g/dL Hct 37.1 L (40-54) % MCV 85.5 (80-94) fL MCH 27.9 (27.0-32.0) pg MCHC 32.6 (32-36) g/dL RDW Std Deviation 43.1 (35.1-43.9) fl RDW Coeff of Sheri 13.8 (11.6-14.6) % Plt Count 364 (150-450) K/mm3 MPV 10.0 (6.2-12.0) fl Immature Gran % (Auto) 1.000 H (0.0-0.9) % Neut % (Auto) 65.0 (47-70) % Lymph % (Auto) 18.5 L (19-41) % [place] % (Auto) 14.3 H (0-10) % Eos % (Auto) 1.0 (0-5) % Baso % (Auto) 0.2 (0-1) % Absolute Neuts (auto) 6.2 (2.0-7.7) X10^3/uL Absolute Lymphs (auto) 1.77 (0.83-4.51) X10^3/uL Nucleated RBC % 0 (0-5) % Sodium 136 (136-145) mmol/L Potassium 4.1 (3.5-5.1) mmol/L Chloride 100 (98-107) mmol/L Carbon Dioxide 27.0 (21.0-32.0) mmol/L Anion Gap 9 (5-15) BUN 66 H (7-18) mg/dL Creatinine 2.28 H (0.70-1.30) mg/dL Estim Creat Clear Calc 23.71 ml/min Est GFR (MDRD) Af Amer 36 L (>60) mL/min Est GFR (MDRD) Non-Af 30 L (>60) mL/min BUN/Creatinine Ratio 28.9 H (10-20) RATIO Glucose 204 H (74-106) mg/dL Calcium 9.7 (8.5-10.1) mg/dL Total Bilirubin 0.60 (0.20-1.00) mg/dL AST 25 (15-37) U/L ALT 28 (16-61) U/L Alkaline Phosphatase 151 H (45-117) U/L Total Protein 8.7 H (6.4-8.2) g/dL Albumin 3.5 (3.2-5.0) g/dL Globulin 5.2 H (2.2-4.2) g/dL Albumin/Globulin Ratio 0.7 L (0.9-2.4) RATIO Urine Color Yellow (Yellow) Urine Clarity Clear (Clear) Urine pH 5.0 (5.0 - 8.0) Ur Specific [place] 1.015 (1.002-1.030) Urine Protein 30 H (Negative) mg/dl Urine Glucose (UA) Normal (Normal) mg/dl Urine Ketones Negative (Negative) mg/dl Urine Occult Blood Negative (Negative) /ul Urine Nitrite Negative (Negative) Urine Bilirubin Negative (Negative) mg/dL Urine Urobilinogen Normal (Normal) mg/dl Ur Leukocyte Esterase Negative (Negative) /ul Urine RBC 0 SEEN (0-5) /hpf Urine WBC 0 SEEN (0-5) /hpf Ur Squamous Epith Cells 0 SEEN (0-5) /hpf Urine Bacteria 0 SEEN (None Seen) /hpf Urine Mucus 0 SEEN (<or=2+) /hpf Radiography Diagnostic Testing: Radiology Impression Brain CT 05/17/21 14:51 IMPRESSION: There are no acute findings. Chronic involutional changes of the brain. Electronically Signed: Antony Vasques MD at 15:56 EST , Service support , Discharge Plan Triage Chief Complaint: Eye Problem ED Provider: Jesse Angel Dx/Rx/DC Orders Clinical Impression: Visual changes Instructions: ED Blurred Vision Prescriptions: No Action atorvastatin 40 MG tablet 40 mg PO QHS RF: 0 acetaminophen 500 MG tablet 1,000 mg PO Q8H PRN (Reason: Pain 1-10 Or Fever) RF: 0 levothyroxine 25 MCG tablet 25 mcg PO DAILY RF: 0 metformin 1,000 MG tablet 1,000 mg PO BID RF: 0 lisinopril 10 MG tablet 10 mg PO QHS RF: 0 cholecalciferol (vitamin D3) 25 MCG capsule 1,000 unit PO DAILY RF: 0 citalopram 10 MG tablet 10 mg PO DAILY RF: 0 collagenase clostridium histo. 1 APPLIC ointment 1 applic TP DAILY RF: 0 gabapentin 600 MG tablet 600 mg PO BID RF: 0 metoprolol succinate 25 MG tablet 25 mg PO DAILY RF: 0 insulin lispro 100 UNIT/ML insulin pen 30 unit SC TIDCM RF: 0 insulin glargine 100 UNITS/ML insulin pen 30 units SC QHS RF: 0 aspirin 81 mg Tablet 81 mg PO DAILY RF: 0 Primary Care Provider: Dexter Reyes Chi Referrals: Dexter Reyes Chi, MD [Primary Care Provider] - 3-5 Days Disposition Disposition: Home, Self Care
[2021-05-17 15:28] LABS: Absolute Lymphocyte Count 1.77 X10^3/uL (0.83-4.51); Absolute Neutrophil Count 6.2 X10^3/uL (2.0-7.7); Basophil# 0.02 X10^3/uL; Basophil% 0.2 % (0-1); Hematocrit 37.1 % (40-54); Hemoglobin 12.1 g/dL (13.0-16.5); Lymphocyte # 1.77 X10^3/ul (0.83-4.51); Lymphocyte % 18.5 % (19-41); Mean Corp Hgb Conc 32.6 g/dL (32-36); Mean Corpuscular Hgb 27.9 pg (27.0-32.0); Mean Corpuscular Volume 85.5 fL (80-94); Monocyte# 1.37 X10^3/uL; Monocyte% 14.3 % (0-10); NRBC Flagged by Analyzer 0 % (0-5); Neutrophil # 6.21 X10^3/uL (2.7-7.7); Platelet Count 364 K/mm3 (150-450); RBC Distribution Width CV 13.8 % (11.6-14.6); RBC Distribution Width SD 43.1 fl (35.1-43.9); Red Blood Count 4.34 M/mm3 (4.6-6.2); White Blood Count 9.6 K/mm3 (4.4-11.0)
[2021-05-17 15:32] LABS: Bacteria 0 SEEN /hpf (None Seen); Mucous, Urine 0 SEEN /hpf (<or=2+); Red Blood Cells-Urine 0 SEEN /hpf (0-5); Squamous Epithelial Cells - UA 0 SEEN /hpf (0-5); White Blood Cells 0 SEEN /hpf (0-5)
[2021-05-17 15:47] LABS: ALB/GLOB Ratio 0.7 RATIO (0.9-2.4); AST(SGOT) 25 U/L (15-37); Alanine Aminotransfer ALT/SGPT 28 U/L (16-61); Albumin, Serum 3.5 g/dL (3.2-5.0); Alkaline Phosphatase 151 U/L (45-117); Anion Gap 9 (5-15); BUN 66 mg/dL (7-18); BUN/Creat Ratio 28.9 RATIO (10-20); Calcium,Total 9.7 mg/dL (8.5-10.1); Chloride 100 mmol/L (98-107); Creatinine, Serum 2.28 mg/dL (0.70-1.30); EST Glomerular Filtration Rate 30 mL/min (>60); Est Glom Filt Rate - Afr Amer 36 mL/min (>60); Estimated Creatinine Clearance 23.71 ml/min; Globulin 5.2 g/dL (2.2-4.2); Glucose 204 mg/dL (74-106); Potassium 4.1 mmol/L (3.5-5.1); Protein, Total 8.7 g/dL (6.4-8.2); Sodium Level 136 mmol/L (136-145)
[2021-05-17 15:51] LABS: Color, Urine Yellow (Yellow); Glucose, Dipstick Normal (Normal); Ketone-Dipstick Negative (Negative); Leukocyte Esterase-Dipstick Negative /ul (Negative); Nitrite-Dipstick Negative (Negative); Occult Blood-Urine Negative /ul (Negative); Protein-Dipstick 30 mg/dl (Negative); Specific Gravity, Urine 1.015 (1.002-1.030); Urine Bilirubin Dipstick Negative (Negative); Urine Clarity Clear (Clear); Urine Urobilinogen Normal (Normal)
== END 2021-05-17 17:14 | disposition home or self-care (01) ==
PROVIDERS: Emergency Provider Emergency Medicine; PCP Family Medicine Geriatric Medicine
DX: H53.9 Unspecified visual disturbance (principal); E11.36 Type 2 diabetes mellitus with diabetic cataract; E78.5 Hyperlipidemia, unspecified; I10 Essential (primary) hypertension; E03.9 Hypothyroidism, unspecified; Z79.4 Long term (current) use of insulin; Z79.82 Long term (current) use of aspirin; Z87.891 Personal history of nicotine dependence; Z79.899 Other long term (current) drug therapy
CPT/HCPCS: 70450; 80053; 81001; 85025; 99285; A4216

== ENCOUNTER → 2021-05-19 12:32 | Outpatient (CLI) | payer MEDICARE, MEDICAID, SELFPAY ==
[2021-05-19 13:50] LABS: Erythrocyte Sedimentation Rate 66 mm/hr (0-20)
[2021-05-19 13:52] LABS: Absolute Lymphocyte Count 1.38 X10^3/uL (0.83-4.51); Absolute Neutrophil Count 6.3 X10^3/uL (2.0-7.7); Basophil# 0.02 X10^3/uL; Basophil% 0.2 % (0-1); Eosinophil# 0.15 X10^3/uL; Eosinophils% 1.6 % (0-5); Hematocrit 36.1 % (40-54); Hemoglobin 11.6 g/dL (13.0-16.5); Lymphocyte # 1.38 X10^3/ul (0.83-4.51); Lymphocyte % 14.7 % (19-41); Mean Corp Hgb Conc 32.1 g/dL (32-36); Mean Corpuscular Hgb 27.6 pg (27.0-32.0); Mean Corpuscular Volume 85.7 fL (80-94); Mean Platelet Vol. 10.5 fl (6.2-12.0); Monocyte# 1.49 X10^3/uL; Monocyte% 15.9 % (0-10); NRBC Flagged by Analyzer 0 % (0-5); Neutrophil # 6.28 X10^3/uL (2.7-7.7); Neutrophil % 66.7 % (47-70); Platelet Count 347 K/mm3 (150-450); RBC Distribution Width CV 14.1 % (11.6-14.6); RBC Distribution Width SD 43.6 fl (35.1-43.9); Red Blood Count 4.21 M/mm3 (4.6-6.2); White Blood Count 9.4 K/mm3 (4.4-11.0)
[2021-05-19 14:08] LABS: Anion Gap 10 (5-15); BUN 60 mg/dL (7-18); BUN/Creat Ratio 26.3 RATIO (10-20); Calcium,Total 9.1 mg/dL (8.5-10.1); Chloride 99 mmol/L (98-107); Creatinine, Serum 2.28 mg/dL (0.70-1.30); EST Glomerular Filtration Rate 30 mL/min (>60); Est Glom Filt Rate - Afr Amer 36 mL/min (>60); Glucose 180 mg/dL (74-106); Potassium 4.1 mmol/L (3.5-5.1); Sodium Level 135 mmol/L (136-145)
== END ==
PROVIDERS: PCP Family Medicine Geriatric Medicine; Referring Provider Family Medicine Geriatric Medicine; Visit Provider Family Medicine Geriatric Medicine
DX: I10 Essential (primary) hypertension (principal)
CPT/HCPCS: 36415; 80048; 85025; 85652; 86141

== ENCOUNTER → 2021-05-21 11:40 | Outpatient (CLI) | payer MEDICARE, MEDICAID, SELFPAY ==
[2021-05-21 13:17] LABS: Magnesium 2.1 mg/dL (1.6-2.6)
== END ==
PROVIDERS: PCP Family Medicine Geriatric Medicine; Visit Provider Family Medicine Geriatric Medicine
DX: E83.49 Other disorders of magnesium metabolism (principal)
CPT/HCPCS: 36415; 83735

== ENCOUNTER → 2021-06-01 14:45 | Outpatient (CLI) | payer MEDICARE, MEDICAID, SELFPAY ==
--- NOTE | 2021-06-01 15:02 | ECHOCS_ITS ---
Reason For Study: tachycardia Procedure This was a 2D Doppler, Color Flow transthoracic echocardiogram. The study was technically difficult. Contrast injection was performed. Exam performed in department. Left Ventricle Based upon the 2D echocardiographic contrast enhanced images obtained there appears to be grossly normal left ventricular size, wall motion, and systolic function. The estimated ejection fraction is 55 %. There is evidence of diastolic dysfunction. Right Ventricle Normal RV size. Normal systolic function. Atria The left atrium is mildly enlarged. Normal right atrium. No doppler evidence for ASD. Mitral Valve There is mild mitral annular calcification. Extension of the mitral annular calcification on the base of the posterior mitral valve leaflet. The mitral valve chordae are thickened and/or calcified. Trivial mitral valve insufficiency. Tricuspid Valve Normal tricuspid valve. Trivial tricuspid valve insufficiency. Unable to estimate RV systolic pressure/pulmonary artery pressure due to technically difficult study. Aortic Valve Trisinus/trileaflet aortic valve. Mild diffuse aortic valve calcification. Pulmonic Valve The pulmonic valve is not well visualized. Mild (1+) pulmonic valve insufficiency. Great Vessels Normal sized aortic root. Pericardium/Pleural No pericardial effusion. Medication 22 gauge I.V. with prn adaptor inserted into right arm. Diluted definity 3.0ml given slow IV push to enhance endocardial definition. MMode/2D Measurements & Calculations LVIDd: 4.6 cm IVSd: 1.2 cm Ao root diam: 3.7 cm LVIDs: 3.3 cm LVPWd: 1.1 cm RVDd: 2.7 cm FS: 28.1 % LAV(MOD-bp): 89.0 ml LA A4 area: 22.6 cm2 LA dimension(2D): 4.1 cm LAV(MOD-bp) Indexed: 46.0 ml/m2 LAV(MOD-sp2): 94.3 ml LAV(MOD-sp4): 76.4 ml RA A4 area: 17.3 cm2 Time Measurements MV dec time: 0.27 sec Doppler Measurements & Calculations MV E max chaim: 78.9 cm/sec Lat Peak E' Chaim: 5.4 cm/sec Med Peak E' Chaim: 4.6 cm/sec MV A max chaim: 104.5 cm/sec E/E' lat: 14.7 E/E' med: 17.0 MV E/A: 0.75 Ao V2 max: 122.5 cm/sec LV V1 max: 78.8 cm/sec PA V2 max: 72.0 cm/sec Ao max P.0 mmHg LV V1 max P.5 mmHg PI dec slope: 133.4 cm/sec2 ECHO/Echo Complete W/ Contrast Interpretation Summary The study was technically difficult. Contrast injection was performed. Based upon the 2D echocardiographic contrast enhanced images obtained there femi ears to be grossly normal left ventricular size, wall motion, and systolic function. The estimated ejection fraction is 55 %. The left atrium is mildly enlarged. There is mild mitral annular calcification. Extension of the mitral annular calcification on the base of the posterior mitr al valve leaflet. The mitral valve chordae are thickened and/or calcified. Trivial mitral valve insufficiency. Trivial tricuspid valve insufficiency. Mild diffuse aortic valve calcification. Mild (1+) pulmonic valve insufficiency. Unable to estimate RV systolic pressure/pulmonary artery pressure due to techni aniceto difficult study. There is evidence of diastolic dysfunction. Ordering Physician: Dexter Reyes Referring Physician: Dexter Reyes Chi Performed By: Huyen Moses, ELLIS, RVT
--- NOTE | 2021-06-01 15:19 | MRI_ITS ---
STUDY: MRA OF THE HEAD WITHOUT CONTRAST REASON FOR EXAM: Male, 80 years old. cerebral infarction, vision change right eye TECHNIQUE: 3-D asel-uo-xdroct (TOF) imaging was performed with MIPs. The study was performed unenhanced. COMPARISON: None. FINDINGS: Normal bilateral petrous carotid arteries. Normal right cavernous carotid artery with a normal supraclinoid bifurcation. Normal left cavernous carotid artery with a normal supraclinoid bifurcation. Normal right A1 segments of the anterior cerebral artery. Normal left A1 segments of the anterior cerebral artery. Anterior communicating artery not visualized consistent with normal variant). Normal bilateral A2 segments of the anterior cerebral arteries. Normal right M1 and M2 segments of the middle cerebral arteries, with a normal M1 bifurcation. Normal left M1 and M2 segments of the middle cerebral arteries, with a normal M1 bifurcation. Posterior communicating arteries are not visualized consistent with normal variant Left vertebral is dominant and normal caliber. There is diffusely narrowed right vertebral possibly developmental variant.. Normal basilar artery with a normal basilar bifurcation. The visualized bilateral superior cerebellar (SCA) arteries are normal. Normal bilateral P1, P2 and visualized P3 segments of the posterior cerebral arteries. There is no demonstrated aneurysm of the [place]. There is no major vessel occlusion or hemodynamically significant stenosis. MRI/MRA Head ONLY without Contrast IMPRESSION: Normal MRA of the head Electronically Signed: Dakota Kendall MD at 17:54 EST , Service support ,
--- NOTE | 2021-06-01 15:19 | MRI_ITS ---
STUDY: MRI BRAIN WITHOUT CONTRAST REASON FOR EXAM: Male, 80 years old. cerebral infarction, vision change right eye TECHNIQUE: Standardized multiplanar fat and water weighted pulse sequences were obtained. COMPARISON: None. FINDINGS: Mild atrophy and periventricular white matter ischemic changes without mass effect or restricted diffusion.. Subacute to chronic ischemic changes in the left parietal-occipital region Normal bilateral basal ganglia. Normal thalami. There is no extra-axial fluid accumulation. Normal flow voids within the major intracranial circulation suggesting patency by spin echo criteria. Normal sella turcica, pituitary gland, infundibular stalk, optic chiasm and hypothalamus. Normal tectal plate and pineal gland. Normal midbrain, jennifer and medulla. Normal cerebellum. Normal basal cisterns. Normal bilateral temporal bones. Normal bilateral internal auditory canals. Postsurgical changes of right orbit.. Mild mucosal thickening of the ethmoid and sphenoid sinuses. Normal calvarium and skull base. Normal visualized soft tissue structures. Normal visualized upper cervical spine. MRI/Brain without Contrast IMPRESSION: Mild atrophy and periventricular white matter ischemic changes without evidence for acute infarct. Subacute to chronic ischemic changes in left parietal-occipital region Electronically Signed: Dakota Kendall MD at 17:52 EST , Service support ,
== END ==
PROVIDERS: PCP Family Medicine Geriatric Medicine; Referring Provider Family Medicine Geriatric Medicine; Visit Provider Family Medicine Geriatric Medicine
DX: R00.0 Tachycardia, unspecified (principal); I63.9 Cerebral infarction, unspecified; I37.1 Nonrheumatic pulmonary valve insufficiency
CPT/HCPCS: 70544; 70551; 93306; Q9957; A4216; C8929

== ENCOUNTER → 2021-06-02 13:59 | Outpatient (CLI) | payer MEDICARE, MEDICAID, SELFPAY ==
[2021-06-02 16:41] LABS: Absolute Lymphocyte Count 2.04 X10^3/uL (0.83-4.51); Absolute Neutrophil Count 21.6 X10^3/uL (2.0-7.7); Basophil# 0.07 X10^3/uL; Basophil% 0.3 % (0-1); Eosinophil# 0.01 X10^3/uL; Hematocrit 37.6 % (40-54); Hemoglobin 12.3 g/dL (13.0-16.5); Lymphocyte # 2.04 X10^3/ul (0.83-4.51); Lymphocyte % 7.7 % (19-41); Mean Corp Hgb Conc 32.7 g/dL (32-36); Mean Corpuscular Hgb 27.5 pg (27.0-32.0); Mean Corpuscular Volume 84.1 fL (80-94); Mean Platelet Vol. 10.8 fl (6.2-12.0); Monocyte# 1.93 X10^3/uL; Monocyte% 7.3 % (0-10); NRBC Flagged by Analyzer 0 % (0-5); Neutrophil % 81.1 % (47-70); POSITIVE DIFFERENTIAL YES; Platelet Count 406 K/mm3 (150-450); RBC Distribution Width CV 13.8 % (11.6-14.6); Red Blood Count 4.47 M/mm3 (4.6-6.2); White Blood Count 26.6 K/mm3 (4.4-11.0)
[2021-06-02 16:43] LABS: Differential Indicated SCAN CRITERIA MET
[2021-06-02 17:15] LABS: ALB/GLOB Ratio 0.7 RATIO (0.9-2.4); AST(SGOT) 9 U/L (15-37); Alanine Aminotransfer ALT/SGPT 28 U/L (16-61); Albumin, Serum 3.1 g/dL (3.2-5.0); Alkaline Phosphatase 92 U/L (45-117); Anion Gap 12 (5-15); BUN 91 mg/dL (7-18); Calcium,Total 9.3 mg/dL (8.5-10.1); Chloride 91 mmol/L (98-107); Creatinine, Serum 2.53 mg/dL (0.70-1.30); EST Glomerular Filtration Rate 26 mL/min (>60); Est Glom Filt Rate - Afr Amer 32 mL/min (>60); Globulin 4.6 g/dL (2.2-4.2); Glucose 398 mg/dL (74-106); Potassium 4.5 mmol/L (3.5-5.1); Protein, Total 7.7 g/dL (6.4-8.2); Sodium Level 132 mmol/L (136-145); Thyroid Stim Hormone (TSH) 1.58 uIU/mL (0.358-3.74)
[2021-06-02 17:29] LABS: Differential Comment SCANNED
[2021-06-02 18:54] LABS: Vitamin D,25 Hydroxy 14.8 ng/mL
[2021-06-04 09:49] LABS: Pathologist Review Reviewed
== END ==
PROVIDERS: PCP Family Medicine Geriatric Medicine; Visit Provider Family Medicine Geriatric Medicine
DX: E11.9 Type 2 diabetes mellitus without complications (principal); I10 Essential (primary) hypertension; E55.9 Vitamin D deficiency, unspecified
CPT/HCPCS: 36415; 80053; 82306; 84443; 85025

== ENCOUNTER 2021-07-08 10:17 | Outpatient (CLI) | payer MEDICARE, MEDICAID, SELFPAY ==
[2021-07-08 12:40] LABS: Hematocrit 37.8 % (40-54); Mean Corp Hgb Conc 31.7 g/dL (32-36); Mean Corpuscular Hgb 26.4 pg (27.0-32.0); Mean Corpuscular Volume 83.1 fL (80-94); Mean Platelet Vol. 10.4 fl (6.2-12.0); Platelet Count 263 K/mm3 (150-450); RBC Distribution Width CV 15.7 % (11.6-14.6); RBC Distribution Width SD 47.2 fl (35.1-43.9); Red Blood Count 4.55 M/mm3 (4.6-6.2); White Blood Count 9.2 K/mm3 (4.4-11.0)
[2021-07-08 12:58] LABS: ALB/GLOB Ratio 0.6 RATIO (0.9-2.4); AST(SGOT) 12 U/L (15-37); Alanine Aminotransfer ALT/SGPT 25 U/L (16-61); Albumin, Serum 2.7 g/dL (3.2-5.0); Alkaline Phosphatase 72 U/L (45-117); Anion Gap 7 (5-15); BUN 39 mg/dL (7-18); BUN/Creat Ratio 20.9 RATIO (10-20); Calcium,Total 8.9 mg/dL (8.5-10.1); Chloride 97 mmol/L (98-107); Creatinine, Serum 1.87 mg/dL (0.70-1.30); EST Glomerular Filtration Rate 37 mL/min (>60); Est Glom Filt Rate - Afr Amer 45 mL/min (>60); Globulin 4.7 g/dL (2.2-4.2); Glucose 319 mg/dL (74-106); Potassium 4.4 mmol/L (3.5-5.1); Protein, Total 7.4 g/dL (6.4-8.2); Sodium Level 131 mmol/L (136-145)
[2021-07-08 13:00] LABS: Protein, Urine (Random) 123.5 mg/dL (<11.9); Protein:Creat Ratio 1199 mg/g CRE (0-200)
[2021-07-08 13:30] LABS: PTHIN 70.8 pg/mL (18.4-80.1)
== END 2021-07-08 23:59 | disposition short-term general hospital (02) ==
PROVIDERS: PCP Family Medicine Geriatric Medicine; Visit Provider Internal Medicine Nephrology
DX: N18.4 Chronic kidney disease, stage 4 (severe) (principal); R94.4 Abnormal results of kidney function studies
CPT/HCPCS: 36415; 80053; 82570; 83970; 84156; 85027

== ENCOUNTER 2022-12-14 01:57 | Inpatient (IN) | payer MEDICARE, MEDICAID, SELFPAY ==
[2022-12-14] MEDS: 0.9% Normal Saline 1,000 ML 100 ML IV ×2 (03:30→13:48)
[2022-12-14 03:45] VITALS: BMI 30.2
[2022-12-14 06:00] VITALS: BMI 30.2
[2022-12-14 06:07] LABS: Bedside Glucose 141 mg/dL (74-106)
[2022-12-14] MEDS: Levothyroxine 50 MCG Tablet PO (06:45)
[2022-12-14 07:20] LABS: Bedside Glucose 138 mg/dL (74-106)
--- NOTE | 2022-12-14 07:37 | PN.HOSP_ITS ---
Objective Data Objective Data Vital Signs: Weight: 84.822 kg Body Mass Index (BMI) 30.2 Lab / Micro Data Labs: Laboratory Results - last 24 hr 12/14/22 03:43: POC Glucose 141 H 12/14/22 06:59: POC Glucose 138 H Assessment & Plan Assessment/Plan (1) Choledocholithiasis: PLAN: On pip/tazo GI and GS consult NPO IVF PLAN: Plan Chronic conditions: * h/o GCA: completed steroids. Follow up w rheum as outpt * PAD: h/o carotid stenosis w/ h/o CEA. Hold ASA. Follow up with vascular surgery (Dr. Weinstein) * DM2: insulin-dependent. continue glargine and SSI * CKD IIIb: improved from 2020. monitor * HTN: continue carvedilol * HLP: statin held given choledocholithiasis * hypothyroidism: continue levothyroxine * pafib: continue amiodarone. apixaban held given pending intervention * chronic right vision loss: f/u w ophtho * CAD: s/p CABG. hold ASA. Continue carvedilol * COPD w chronic resp failure: stable. * Dementia: caution with medication. * Anxiety/depression: continue citalopram. VTE prophylaxis: SCDs Code Status: DNRCCA, no intubation.
--- NOTE | 2022-12-14 07:37 | PCM.PN.HOSP ---
Subjective Subjective Feels well. No further abdominal pain. Objective Data Objective Data Vital Signs: Weight: 84.822 kg Body Mass Index (BMI) 30.2 Lab / Micro Data 12/14/22 07:35 12/14/22 07:35 Labs: Laboratory Results - last 24 hr 12/14/22 03:43: POC Glucose 141 H 12/14/22 06:59: POC Glucose 138 H Physical Exam Const alert and no apparent distress HEENT head/scalp atraumatic and moist oral mucous membranes Neck no lymphadenopathy Resp normal respiratory effort, no retractions, no use of accessory muscles and clear to auscultation bilaterally GI normal to inspection, nondistended, normoactive bowel sounds, soft to palpation, non-tender and non-distended Extremity normal to inspection Assessment & Plan Assessment/Plan (1) Choledocholithiasis: PLAN: On pip/tazo GI and GS consult NPO IVF PLAN: Plan Chronic conditions: h/o GCA: completed steroids. Follow up w rheum as outpt PAD: h/o carotid stenosis w/ h/o CEA. Hold ASA. Follow up with vascular surgery (Dr. Weinstein) DM2: insulin-dependent. continue glargine and SSI CKD IIIb: improved from 2020. monitor HTN: continue carvedilol HLP: statin held given choledocholithiasis hypothyroidism: continue levothyroxine pafib: continue amiodarone. apixaban held given pending intervention chronic right vision loss: f/u w ophtho CAD: s/p CABG. hold ASA. Continue carvedilol COPD w chronic resp failure: stable. Dementia: caution with medication. Anxiety/depression: continue citalopram. VTE prophylaxis: SCDs Code Status: DNRCCA, no intubation. Charges/Coding Visit Charges Inpatient E&M: 85547 Subs Hosp L2
[2022-12-14 08:01] LABS: Absolute Lymphocyte Count 0.83 X10^3/uL (0.83-4.51); Absolute Neutrophil Count 16.5 X10^3/uL (2.0-7.7); Basophil# 0.02 X10^3/uL; Basophil% 0.1 % (0-1); Eosinophil# 0.02 X10^3/uL; Eosinophils% 0.1 % (0-5); Hematocrit 39.8 % (40-54); Hemoglobin 12.6 g/dL (13.0-16.5); Lymphocyte # 0.83 X10^3/ul (0.83-4.51); Lymphocyte % 4.3 % (19-41); Mean Corp Hgb Conc 31.7 g/dL (32-36); Mean Corpuscular Hgb 27.9 pg (27.0-32.0); Mean Corpuscular Volume 88.2 fL (80-94); Mean Platelet Vol. 11.3 fl (6.2-12.0); Monocyte# 1.66 X10^3/uL; Monocyte% 8.6 % (0-10); NRBC Flagged by Analyzer 0 % (0-5); Neutrophil # 16.48 X10^3/uL (2.7-7.7); POSITIVE DIFFERENTIAL YES; Platelet Count 235 K/mm3 (150-450); RBC Distribution Width CV 14.6 % (11.6-14.6); RBC Distribution Width SD 47.1 fl (35.1-43.9); Red Blood Count 4.51 M/mm3 (4.6-6.2); White Blood Count 19.4 K/mm3 (4.4-11.0)
[2022-12-14 08:03] LABS: Differential Indicated SCAN CRITERIA MET
--- NOTE | 2022-12-14 08:37 | EX.PCM.CON.S ---
Assessment & Plan Assessment/Plan (1) Calculous cholecystitis with obstruction: PLAN: This is an 82-year-old male who presents via direct transfer from [facility] to [facility] for diagnosis of choledocholithiasis. He presented to this outside facility from his nursing facility where he is cared for in his numerous comorbidities. He is not able to provide a completely detailed history, but I gather that he has had several day history of abdominal pain and his ER work-up was notable at the outside facility for abnormal CBC and CMP laboratories that were consistent with a diagnosis of choledocholithiasis?better characterized on follow-up CT imaging of the abdomen pelvis. Patient was initially accepted to [facility] in [place], however, he was redirected here to [facility] due to bed availability. I have been able to review patient's CT imaging as well as the radiology report from that study and agree with the diagnoses of choledocholithiasis and cholelithiasis. I also note that radiology identified a probable left-sided renal cell carcinoma with possible metastasis. I shared this with Mr. Montero and he states that this is the first time he has been made aware of such an issue. I also obtained a dedicated right upper quadrant ultrasound to assess for patient's likelihood for cholecystitis given his white blood cell count and mild Hunt's sign. Further evidence was identified with mildly thickened gallbladder wall and some pericholecystic fluid. Given these findings, Mr. 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 I have used these details of his past medical history to calculate his operative risk availability this equip surgical risk calculator for a laparoscopic cholecystectomy with cholangiography and find his risk for serious complication to approximate 20%. This rationale was shared with Mr. Montero recommendation for pursuing cholecystostomy tube placement. After describing this latter procedure, Mr. Montero confirms that he sees the merit and this approach. This recommendation has also been shared with patient's primary hospitalist, Dr. Haywood. (2) Choledocholithiasis: HPI Consult Data Date of Consult: 12/14/22 HPI Narrative Reason for Consultation: Choledocholithiasis HPI Narrative: ELIZABETH MONTERO, is a 82 M who presents to [facility] direct transfer from [facility] in [place] due to diagnosis there of choledocholithiasis. Patient states that he had presented there from his current nursing facility, [facility], after several day history of abdominal pain. He is not able to provide a very detailed history, but states that he believes the pain was associated with some other symptoms, however, he denies any experience of fevers or chills. Mr. 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 He states that he remains on amiodarone and Eliquis on account of a diagnosis of atrial fibrillation. He also carries diagnoses of COPD related to remote tobacco use history, insulin-dependent diabetes, obesity, hypertension, and chronic kidney disease. [facility] Medical History (Updated 12/14/22 @ 18:[address] Navneet Palumbo MD) Atherosclerotic heart disease of [place] coronary artery without angina pectoris COPD (chronic obstructive pulmonary disease) Diabetes mellitus type 2, uncontrolled Edentulous Essential hypertension Giant cell arteritis Hypothyroidism Obesity Paroxysmal atrial fibrillation Peripheral vascular occlusive disease Tinea unguium Tobacco dependence in remission Vitamin D deficiency Home Medications cholecalciferol (vitamin D3) 25 mcg (1,000 unit) capsule 1,000 unit PO DAILY SUPPLEMENT 05/18/20 [History Last Taken 05/18/20] citalopram 10 mg tablet 10 mg PO DAILY DEPRESSION 05/18/20 [History Last Taken 05/18/20] insulin glargine 100 unit/mL (3 mL) subcutaneous pen 10 unit subcut QHS DM 05/18/20 [History Last Taken 05/17/20] insulin lispro 100 unit/mL subcutaneous pen 10 unit subcut TIDCM DM 05/18/20 [History Last Taken 05/18/20] aspirin 81 mg tablet 81 mg PO DAILY 05/17/21 [History Last Taken 12/12/22] amiodarone 200 mg tablet 200 mg PO DAILY 09/01/21 [History Last Taken Unknown] levothyroxine 50 mcg tablet 50 mcg PO DAILY 09/01/21 [History Last Taken Unknown] apixaban 2.5 mg tablet (Eliquis) 2.5 mg PO DAILY 03/03/22 [History Last Taken 12/12/22] atorvastatin 40 mg tablet 40 mg PO DAILY 03/03/22 [History Last Taken Unknown] omeprazole 40 mg capsule,delayed release 40 mg PO DAILY 03/03/22 [History Last Taken Unknown] carvedilol 3.125 mg tablet (Coreg) 3.125 mg PO BID 05/16/22 [History Last Taken Unknown] acetaminophen 325 mg capsule 650 mg PO Q4H PRN pain 12/14/22 [History Last Taken Unknown] empagliflozin 10 mg tablet (Jardiance) 25 mg PO DAILY 12/14/22 [History Last Taken Unknown] multivitamin 1 tab PO DAILY 12/14/22 [History Last Taken Unknown] polyethylene glycol 3350 17 gram/dose oral powder (Miralax) 17 g PO DAILY PRN constipation 12/14/22 [History Last Taken Unknown] Allergy/AdvReac Type Severity Reaction Status Date / Time No Known Allergies Allergy Verified 05/16/22 09:20 Family History (Updated 12/14/22 @ 00:[address] 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 Bren Lopes MD) housing: [facility] Smoking Status: Former smoker how long ago did patient quit smoking: Quit . alcohol intake: current alcohol intake frequency: a few times a month details: Prior heavier, now occasional. substance use type: does not use ROS Gastrointestinal Gastrointestinal: Reports abdominal pain Physical Exam Const alert and oriented x3 General Appearance: cooperative Resp normal respiratory effort Resp Narrative: Supplemental oxygen in place (patient states that he denied CPAP) GI GI Narrative: Obese, no abdominal scars, nondistended, soft. Mildly positive Hunt sign and right upper quadrant Lab / Micro Data 12/14/22 07:35 12/14/22 07:35 Labs: Laboratory Results - last 24 hr 12/14/22 03:43: POC Glucose 141 H 12/14/22 06:59: POC Glucose 138 H 12/14/22 07:35: WBC 19.4 H, RBC 4.51 L, Hgb 12.6 L, Hct 39.8 L, MCV 88.2, MCH 27.9, MCHC 31.7 L, RDW Std Deviation 47.1 H, RDW Coeff of Sheri 14.6, Plt Count 235, MPV 11.3, Immature Gran % (Auto) 1.900 H, Neut % (Auto) 85.0 H, Lymph % (Auto) 4.3 L, [place] % (Auto) 8.6, Eos % (Auto) 0.1, Baso % (Auto) 0.1, Absolute Neuts (auto) 16.5 H, Absolute Lymphs (auto) 0.83, Nucleated RBC % 0 Charges/Coding Visit Charges Inpatient E&M: 15088 Init Hosp L2
[2022-12-14 08:46] LABS: ALB/GLOB Ratio 0.7 RATIO (0.9-2.4); AST(SGOT) 230 U/L (15-37); Alanine Aminotransfer ALT/SGPT 267 U/L (16-61); Albumin, Serum 2.7 g/dL (3.2-5.0); Alkaline Phosphatase 384 U/L (45-117); Anion Gap 7 (5-15); BUN 36 mg/dL (7-18); BUN/Creat Ratio 19.8 RATIO (10-20); Calcium,Total 8.7 mg/dL (8.5-10.1); Chloride 104 mmol/L (98-107); Creatinine, Serum 1.82 mg/dL (0.70-1.30); EST Glomerular Filtration Rate 38 mL/min (>60); Est Glom Filt Rate - Afr Amer 46 mL/min (>60); Estimated Creatinine Clearance 28.73 ml/min; Globulin 4.1 g/dL (2.2-4.2); Glucose 128 mg/dL (74-106); Potassium 3.7 mmol/L (3.5-5.1); Protein, Total 6.8 g/dL (6.4-8.2); Sodium Level 136 mmol/L (136-145)
--- NOTE | 2022-12-14 09:29 | WOUNDNOTE ---
wound photo: right buttock
[2022-12-14 09:33] VITALS: BP 119/58; PULSE 69; RESP 16; TEMP 37.2; O2SAT 93
[2022-12-14] MEDS: Carvedilol 3.125 MG TABLET PO ×2 (09:42→22:13)
[2022-12-14] MEDS: Amiodarone 200 MG Tablet PO (09:42)
[2022-12-14] MEDS: Citalopram 10 MG Tablet PO (09:42)
--- NOTE | 2022-12-14 11:42 | CON.PCM.GI_ITS ---
HPI Consult Data Date of Consult: 12/14/22 HPI Narrative Reason for Consultation: Choledocholithiasis HPI Narrative: ELIZABETH MODI, is a 82 M who presents with past medical history of atrial fibrillation with RVR on Eliquis and amiodarone. He presented to primary hospital yesterday with worsening abdominal pain. 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 He had a CT scan abdomen pelvis that it showed findings consistent with acute pancreatitis and choledocholithiasis. He was transferred to our hospital for management. All other 16 review systems are negative except as per body mentioned HPI. [facility] Medical History Atherosclerotic heart disease of [place] coronary artery without angina pectoris COPD (chronic obstructive pulmonary disease) Diabetes mellitus type 2, uncontrolled Edentulous Essential hypertension Giant cell arteritis Hypothyroidism Obesity Paroxysmal atrial fibrillation Peripheral vascular occlusive disease Tinea unguium Tobacco dependence in remission Vitamin D deficiency Home Medications cholecalciferol (vitamin D3) 25 mcg (1,000 unit) capsule 1,000 unit PO DAILY SUPPLEMENT 05/18/20 [History Last Taken 05/18/20] citalopram 10 mg tablet 10 mg PO DAILY DEPRESSION 05/18/20 [History Last Taken 05/18/20] insulin glargine 100 unit/mL (3 mL) subcutaneous pen 10 unit subcut QHS DM 05/18/20 [History Last Taken 05/17/20] insulin lispro 100 unit/mL subcutaneous pen 10 unit subcut TIDCM DM 05/18/20 [History Last Taken 05/18/20] aspirin 81 mg tablet 81 mg PO DAILY 05/17/21 [History Last Taken 12/12/22] amiodarone 200 mg tablet 200 mg PO DAILY 09/01/21 [History Last Taken Unknown] levothyroxine 50 mcg tablet 50 mcg PO DAILY 09/01/21 [History Last Taken Unknown] apixaban 2.5 mg tablet (Eliquis) 2.5 mg PO DAILY 03/03/22 [History Last Taken 12/12/22] atorvastatin 40 mg tablet 40 mg PO DAILY 03/03/22 [History Last Taken Unknown] omeprazole 40 mg capsule,delayed release 40 mg PO DAILY 03/03/22 [History Last Taken Unknown] carvedilol 3.125 mg tablet (Coreg) 3.125 mg PO BID 11/28/22 [History Last Taken Unknown] acetaminophen 325 mg capsule 650 mg PO Q4H PRN pain 12/14/22 [History Last Taken Unknown] empagliflozin 10 mg tablet (Jardiance) 25 mg PO DAILY 12/14/22 [History Last Taken Unknown] multivitamin 1 tab PO DAILY 12/14/22 [History Last Taken Unknown] polyethylene glycol 3350 17 gram/dose oral powder (Miralax) 17 g PO DAILY PRN constipation 12/14/22 [History Last Taken Unknown] Allergy/AdvReac Type Severity Reaction Status Date / Time No Known Allergies Allergy Verified 05/16/22 09:20 Family History (Updated 12/14/22 @ 00:[address] 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 Bren Lopes MD) housing: senior living Smoking Status: Former smoker how long ago did patient quit smoking: Quit . alcohol intake: current alcohol intake frequency: a few times a month details: Prior heavier, now occasional. substance use type: does not use ROS Review of Systems ROS Unobtainable: other Constitutional Constitutional: Denies fatigue, fever(s), poor appetite, weight gain or weight loss ENT HEENT: Denies mouth lesions Cardiovascular Cardiovascular: Denies abdominal bloating, abdominal edema or abdominal pain Respiratory/Chest Respiratory/Chest: Denies change in mental status, change in phlegm color, chest congestion or chest tightness Gastrointestinal Gastrointestinal: Denies belching, bloating, change in bowel habits, change in stool character, chewing difficulty, coffee ground emesis, constipation, cramping, diarrhea, dyspepsia, dysphagia, early satiety, excessive flatus, fecal incontinence, heartburn, hematemesis, hematochezia, hemorrhoids, loose stools, melena, nausea, odynophagia, rectal bleeding, tenesmus, vomiting or weight changes Genitourinary Genitourinary: Denies abdominal discomfort, burning urination or itching Musculoskeletal Musculoskeletal: Reports as per HPI; Denies muscle weakness or myalgias Integumentary Integumentary: Denies jaundice Neurologic Neurologic: Denies lack of coordination or weakness Psychiatric Psychiatric: Denies confusion, depression, memory loss, mood swings, paranoia or suicidal ideation Endocrine Endocrinology: Denies systems reviewed and no addt'l complaints, except as documented Hematologic/Lymphatic Hematologic/Lymphatic: Denies anemia, easy bleeding, easy bruising or lymphadenopathy Allergic/Immunologic Allergic/Immunologic: Denies systems reviewed and no addt'l complaints, except as documented Lab / Micro Data 12/14/22 07:35 12/14/22 07:35 Labs: Laboratory Results - last 24 hr 12/14/22 03:43: POC Glucose 141 H 12/14/22 06:59: POC Glucose 138 H 12/14/22 07:35: WBC 19.4 H, RBC 4.51 L, Hgb 12.6 L, Hct 39.8 L, MCV 88.2, MCH 27.9, MCHC 31.7 L, RDW Std Deviation 47.1 H, RDW Coeff of Sheri 14.6, Plt Count 235, MPV 11.3, Immature Gran % (Auto) 1.900 H, Neut % (Auto) 85.0 H, Lymph % (Auto) 4.3 L, [place] % (Auto) 8.6, Eos % (Auto) 0.1, Baso % (Auto) 0.1, Absolute Neuts (auto) 16.5 H, Absolute Lymphs (auto) 0.83, Nucleated RBC % 0, Diff Path Review October, Sodium 136, Potassium 3.7, Chloride 104, Carbon Dioxide 25.0, Anion Gap 7, BUN 36 H, Creatinine 1.82 H, Estim Creat Clear Calc 28.73, Est GFR (MDRD) Af Amer 46 L, Est GFR (MDRD) Non-Af 38 L, BUN/Creatinine Ratio 19.8, Glucose 128 H, Calcium 8.7, Total Bilirubin 2.90 H, AST 230 H, ALT 267 H, Alkaline Phosphatase 384 H, Total Protein 6.8, Albumin 2.7 L, Globulin 4.1, Albumin/Globulin Ratio 0.7 L Assessment & Plan Assessment/Plan (1) Choledocholithiasis: PLAN: Patient will undergo ERCP today. The patient and the patient's daughter was explained alternatives, risk, benefits including not withstanding bleeding, infection, sepsis, perforation, need for discharge and . Have an ASA of 3. Recommending holding anticoagulation. Charges/Coding Visit Charges Inpatient E&M: 41885 Init Hosp L2
--- NOTE | 2022-12-14 11:43 | US_ITS ---
STUDY: ABDOMINAL ULTRASOUND - RIGHT UPPER QUADRANT REASON FOR VISIT: Male, 82 years old pt w choledocholithiasis, assess for stones/inflam TECHNIQUE: Ultrasound evaluation of the right upper quadrant was performed with real-time and static meehan-scale imaging. TECHNICAL QUALITY: Adequate. COMPARISON: None. FINDINGS: Liver: The liver measures 18.1 cm. There is normal echogenicity of the liver. The bile ducts are within normal limits. There is hepatic color flow. The direction of portal flow is hepatopetal. There is a 2.2 cm x 2.5 cm x 1.9 cm cyst in the left lobe of the liver. Gallbladder: There is a distended gallbladder. The gallbladder wall is slightly thickened and measures 3.6 mm. There is a positive sonographic Hunt''s sign. There is a small amount of pericholecystic fluid. There are multiple echogenic structures within the gallbladder, consistent with multiple small gallstones. Sludge is seen within the gallbladder lumen. Common Bile Duct (C.B.D.): The common bile duct measures 9.5 mm. Pancreas: There is diffuse atrophy of the pancreas. There is normal echogenicity of the pancreas. There is no demonstrated pancreatic mass or cyst. Right Kidney: Normal size of the right kidney. The right kidney measures 11.7 cm x 6 cm x 6.6 cm. Normal renal cortex. The right cortex measures 1.6 cm. There is no demonstrated renal mass or cyst. There is no right hydronephrosis. Questionable 6.5 mm nonobstructive right intrarenal calculus. US/Gallbladder IMPRESSION: Hepatomegaly. Multiple gallstones and small amount of sludge in the gallbladder lumen. Trace amount of pericholecystic fluid. Hepatic cyst within the left lobe. Electronically Signed: Daniel Rodriguez MD at 15:14 EDT ,
[2022-12-14 11:53] LABS: Bedside Glucose 117 mg/dL (74-106)
[2022-12-14 13:35] VITALS: BP 123/60; PULSE 67; RESP 16; TEMP 37.6; O2SAT 93; BMI 30.2
--- NOTE | 2022-12-14 15:05 | CHAPLAIN ---
Type of Pastoral Visit _x__ Initial Visit ___ Follow-up Visit ___ On-call Visit ___ General Patient Visit ___ Spiritual Assessment ___ Family Conference ___ Bereavement ___ Rapid Response ___ Code Blue ___ Other (describe below) Pastoral Care Referral From _x__ Patient ___ Family ___ Nurse ___ Physician ___ Network Associate ___ Eye Specialist ___ Other (describe below) Sacrament/Intervention _x__ Active listening ___ Anointing ___ Lutheran ___ Bereavement ___ Communion _x__ Kasandra exploration ___ _x__ Life review _x__ Prayer ___ Reconciliation ___ Sacrament of Sick _x__ Supportive presence ___ Wedding ___ Other (describe below) Pastoral Comments patient is talkative and welcoming of presence as he waits for surgery later today; pt is limited with eyesight; pt explains his living situation, being , and food preferences for hospital and ECF; pt welcomes prayer and presence for support before surgery
[2022-12-14 15:57] VITALS: BP 124/62; PULSE 69; RESP 18; TEMP 37.1; O2SAT 99
[2022-12-14] MEDS: Insulin Lispro 100 UNIT/ML INSULN.PEN SC (17:33)
[2022-12-14 17:47] LABS: Bedside Glucose 151 mg/dL (74-106)
--- NOTE | 2022-12-14 19:02 | HP.PCM.HOS_ITS ---
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 He did not history of constipation. Patient upon presentation to [facility] denies any significant abdominal pain and does note that his prior nausea and emesis is completely resolved since medications administered at outside facility. Work-up in the the OSH ED included: VS: T 97.4, HR 81, RR 18, BP 111/49, 91% on RA-->HR 62, RR 15, BP 130/62, 96% on 3L NC. CBC: WBC 17.5, Hgb 13.4, Plts 276 with L shift CMP: Na 136, K 4.2, Chl 98, CO2 24.5, BUN/Cr 31/1.78, glucose 194, AST/ALT 427/337, Alk phos 557, T bili 3.1, D bili 2.2, lipase 1,173 CT A/P with contrast (IV only): Choledocholithiasis and dilated CBD, cholelithasis, L renal mass (3.2x3x3.5 cm mass), mildly enlarged periaortic lymph nodes of unclear etiology. EKG: SR with no acute evidence of ischemia Troponin: 8.2 HS Medications administered: IV zosyn, LR 500 cc bolus, NS 150 LR continuous, zofran 4 mg x 1. Last dose of Eliquis taken: 12/13/22 evening. [facility] Medical History (Updated 12/14/22 @ 18:[address] Navneet Palumbo MD) Atherosclerotic heart disease of [place] coronary artery without angina pectoris COPD (chronic obstructive pulmonary disease) Diabetes mellitus type 2, uncontrolled Edentulous Essential hypertension Giant cell arteritis Hypothyroidism Obesity Paroxysmal atrial fibrillation Peripheral vascular occlusive disease Tinea unguium Tobacco dependence in remission Vitamin D deficiency Home Medications cholecalciferol (vitamin D3) 25 mcg (1,000 unit) capsule 1,000 unit PO DAILY SUPPLEMENT 05/18/20 [History Last Taken 05/18/20] citalopram 10 mg tablet 10 mg PO DAILY DEPRESSION 05/18/20 [History Last Taken 05/18/20] insulin glargine 100 unit/mL (3 mL) subcutaneous pen 10 unit subcut QHS DM 05/18/20 [History Last Taken 05/17/20] insulin lispro 100 unit/mL subcutaneous pen 10 unit subcut TIDCM DM 05/18/20 [History Last Taken 05/18/20] aspirin 81 mg tablet 81 mg PO DAILY 05/17/21 [History Last Taken 12/12/22] amiodarone 200 mg tablet 200 mg PO DAILY 09/01/21 [History Last Taken Unknown] levothyroxine 50 mcg tablet 50 mcg PO DAILY 09/01/21 [History Last Taken Unknown] apixaban 2.5 mg tablet (Eliquis) 2.5 mg PO DAILY 03/03/22 [History Last Taken 12/12/22] atorvastatin 40 mg tablet 40 mg PO DAILY 03/03/22 [History Last Taken Unknown] omeprazole 40 mg capsule,delayed release 40 mg PO DAILY 03/03/22 [History Last Taken Unknown] carvedilol 3.125 mg tablet (Coreg) 3.125 mg PO BID 05/16/22 [History Last Taken Unknown] acetaminophen 325 mg capsule 650 mg PO Q4H PRN pain 12/14/22 [History Last Taken Unknown] empagliflozin 10 mg tablet (Jardiance) 25 mg PO DAILY 12/14/22 [History Last Taken Unknown] multivitamin 1 tab PO DAILY 12/14/22 [History Last Taken Unknown] polyethylene glycol 3350 17 gram/dose oral powder (Miralax) 17 g PO DAILY PRN constipation 12/14/22 [History Last Taken Unknown] Allergy/AdvReac Type Severity Reaction Status Date / Time No Known Allergies Allergy Verified 05/16/22 09:20 Family History (Updated 12/14/22 @ 00:[address] 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 Bren Lopes MD) housing: skilled nursing Smoking Status: Former smoker how long ago did patient quit smoking: Quit . alcohol intake: current alcohol intake frequency: a few times a month details: Prior heavier, now occasional. substance use type: does not use ROS ROS Narrative Admission Review of Systems: Poor historian, unable to give decent ROS, from outside ED and SNF reported nausea, emesis, abdominal pain history. Vital Signs Vital Signs Vital Signs: 12/14/22 08:08 12/14/22 09:33 12/14/22 09:58 Temperature 98.9 F Temperature Source Oral Pulse Rate 69 Respiratory Rate 16 Respiratory Effort Normal Non-Labored Respiratory Depth Normal Respiratory Pattern Normal Blood Pressure 119/58 L Blood Pressure Mean 78 Blood Pressure Source Monitor Blood Pressure Position Semi-Fowlers Blood Pressure Location Left Arm Pulse Ox 93 Oxygen Delivery Method Nasal Cannula Nasal Cannula Nasal Cannula Oxygen Flow Rate (L/min) 2 2 2 12/14/22 09:10 12/14/22 11:10 12/14/22 13:35 Temperature 99.7 F H Temperature Source Oral Pulse Rate 67 Respiratory Rate 16 Respiratory Effort Respiratory Depth Respiratory Pattern Blood Pressure 123/60 H Blood Pressure Mean 81 Blood Pressure Source Monitor Blood Pressure Position Semi-Fowlers Blood Pressure Location Left Arm Pulse Ox 93 Oxygen Delivery Method Nasal Cannula Oxygen Flow Rate (L/min) 2 2 12/14/22 15:57 12/14/22 15:57 Temperature 98.8 F Temperature Source Oral Pulse Rate 69 Respiratory Rate 18 Respiratory Effort Normal Non-Labored Respiratory Depth Normal Respiratory Pattern Normal Blood Pressure 124/62 H Blood Pressure Mean 82 Blood Pressure Source Monitor Blood Pressure Position Semi-Fowlers Blood Pressure Location Left Arm Pulse Ox 99 Oxygen Delivery Method Nasal Cannula Nasal Cannula Oxygen Flow Rate (L/min) 2 2 Weight Weight: 187 lb 0.008 oz Body Mass Index (BMI) 30.2 Physical Exam Narrative Physical Examination: General: Awake, alert, oriented to self, place, month and year however does have notable dementia and eventually goes into history of being able to see through the cheng and the rest of discussion becomes disorganized, remains cooperative, seated upright in MS bed in no apparent distress, denies any current abdominal pain. Skin: Normal color, normal turgor, no icterus, no cyanosis. HEENT: AT/NC, EOMI, PERRLA, mildly dry MM, no carotid bruits or JVD noted. Lungs: Diminished, > bases, appropriate effort, no rales, ronchi or wheezing. Heart: Regular rate and rhythm; no gallop, rub audible. Abdomen: Soft, obese, no marked epigastric or right upper quadrant discomfort, no marked guarding or reboudn noted, no obvious distention, distant BS, no HSM. Extremities: No cyanosis, clubbing, or edema. Neurological: Patient awake, alert, oriented as noted, cognitive function baseline with underlying dementia/impairment per discussion with daughter, current suspect baseline intact; pupils equally reactive to light and accommodation, cranial nerves II-XII grossly normal, moving all 4 extremities, no focal deficits, strength moderately to severely globally decreased. Psychiatric: Affect appears fatigued otherwise no acute distress, no acute evidence of depressive or anxiety feelings but does have underlying history. Results Lab / Micro Data 12/14/22 07:35 12/14/22 07:35 Labs: Laboratory Results - last 24 hr 12/14/22 03:43: POC Glucose 141 H 12/14/22 06:59: POC Glucose 138 H 12/14/22 07:35: WBC 19.4 H, RBC 4.51 L, Hgb 12.6 L, Hct 39.8 L, MCV 88.2, MCH 27.9, MCHC 31.7 L, RDW Std Deviation 47.1 H, RDW Coeff of Sheri 14.6, Plt Count 235, MPV 11.3, Immature Gran % (Auto) 1.900 H, Neut % (Auto) 85.0 H, Lymph % (Auto) 4.3 L, [place] % (Auto) 8.6, Eos % (Auto) 0.1, Baso % (Auto) 0.1, Absolute Neuts (auto) 16.5 H, Absolute Lymphs (auto) 0.83, Nucleated RBC % 0, Diff Path Review May foll, Sodium 136, Potassium 3.7, Chloride 104, Carbon Dioxide 25.0, Anion Gap 7, BUN 36 H, Creatinine 1.82 H, Estim Creat Clear Calc 28.73, Est GFR (MDRD) Af Amer 46 L, Est GFR (MDRD) Non-Af 38 L, BUN/Creatinine Ratio 19.8, Glucose 128 H, Calcium 8.7, Total Bilirubin 2.90 H, AST 230 H, ALT 267 H, Alkaline Phosphatase 384 H, Total Protein 6.8, Albumin 2.7 L, Globulin 4.1, Albumin/Globulin Ratio 0.7 L 12/14/22 11:22: POC Glucose 117 H 12/14/22 17:26: POC Glucose 151 H Radiology Impression Gallbladder Ultrasound 12/14/22 11:43 IMPRESSION: Hepatomegaly. Multiple gallstones and small amount of sludge in the gallbladder lumen. Trace amount of pericholecystic fluid. Hepatic cyst within the left lobe. 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 He did not history of constipation. #1. Acute choledocholithiasis, ? cholecystitis: Will admit to medical surgical floor, will request general surgery and gastroenterology involvement, notable leukocytosis thus will continue IV zosyn to be cautious, will request GB US given delay in ERCP progression secondary to underlying anticoagulation, will maintain on judicious IVFs, NPO, PPI, IV/po pain control, trend CMP, hold patient chronic Eliquis regimen with likely necessity for delay of ERCP for at least 1.5 to 2 days per discussion with gastroenterology. #2. History of giant cell arteritis: Previously had been on prednisone, current ly off, following with rheumatology, encourage continued outpatient follow-up. #3. Carotid disease: Status post CEA, following with vascular surgery Dr. Weinstein, encourage continued outpatient follow-up, continue aspirin, hypertensive regimen, temporally holding oral diabetic regimen, continue insulin therapy. Temporarily holding statin given acute presentation as noted. #4. Diabetes mellitus type II complicated by prior bilateral lower extremity wounds requiring eventual L BKA, R BKA: Hold oral home regimen, continue home insulin long-acting regimen but hold if needed given NPO status, hold short- acting scheduled home regimen, NPO status given acute presentation as noted, q 6 hour accu checks w/ ISS, encourage offloading, PT and OT as well as case management assessments for discharge planning. #5. Chronic Kidney Disease Stage IIIb: Admission BUN/Cr 31/1.78, baseline renal function 1.2-1.4 per most recent nephrology note Dr. Syl Montgomery as patient had acute on chronic renal failure and on 10/20/2022 Entresto had been temporarily held, repeat BMP in AM. #6. Hypertension: Continue home regimen including Coreg, PRN hydralazine. #7. Hyperlipidemia: Given presentation acutely will temporarily hold statin, add back once appropriate. #8. PAF: We will continue patient home amiodarone, Coreg regimen, holding patient home Eliquis regimen for intervention as noted. 01/05/2022 VELIA with LV hypertrophy, EF 45%, no evidence of VSD, aortic valve thickening consistent with sclerosis, no marked valvular disease aside trivial MR, no shunt. #9. Hypothyroidism: We will continue patient home levothyroxine regimen. #10. Chronic right eye vision loss/legally blind: Following with ophthalmology, maintain on fall precautions. #11. CAD: s/p CABG x 1 MOLINA-LAD 01/05/2022t Farzad, will continue aspirin, Coreg, holding Eliquis and statin as noted. #12. Chronic COPD w/ Chronic Hypoxic Respiratory Failure: Will maintain on 3 L NC chronic supplementation, ATC budeonside therapies, PRN albuterol, HOB, IS parameters. #13. Dementia, unclear type with unclear behavioral disturbance history: Patient residing in a skilled facility, unclear exact dementia history, reported as baseline confused and less interactive, not on any chronic regimens per prior but will clarify with skilled list, PT/OT/case management consulted for discharge planning. #14. Chronic stasis ulcer/buttock decubitus ulcer: We will continue recently initiated Santyl regimen, wound RN consulted, encourage offloading. #15. Anxiety and Depression: Continue patient home citalopram regimen. #16. Former tobacco use: Encourage continued tobacco cessation. #17. Obesity: Weight loss and lifestyle changes encouraged. #18. DE: Noncompliant with CPAP, uses chronic oxygen supplementation. #19. DVT prophylaxis: SCDs, holding home eliquis regimen. #20. CODE status: Patient HCPOA is Petra Sue Daughter ( ) and living will is currently in place. Discussed CODE status at length including difference between FULL code, DNR-CCA and DNR-CC status. Following discussions about the differences in these status, requested DNR-CCA, no intubation status. Advanced Care Planning Face to Face Time: 16 minutes. Admission Evaluation Time spent evaluating chart, patient history, patient evaluation, care planning and discussion with specialists: 75 minutes. Charges/Coding Visit Charges Inpatient E&M: 62869 Init Hosp L3 Procedures Hospitalists Procedures: 27888 Advncd Care Plan 30 Min
[2022-12-14 20:06] VITALS: O2SAT 92
[2022-12-14 21:14] VITALS: BP 120/52; PULSE 69; RESP 16; TEMP 37.5
[2022-12-14 22:53] LABS: Bedside Glucose 204 mg/dL (74-106)
[2022-12-14] MEDS: Insulin Glargine-YFGN 100 UNIT/ML Pen 10 UNIT SC (23:08)
[2022-12-15] VITALS (15 sets, daily range): BP systolic 98–123; BP diastolic 45–60; PULSE 55–77; RESP 16–24; TEMP 36.4–37.3; O2SAT 91–96; BMI 30.5; BMI 30.2
[2022-12-15] MEDS: 0.9% Normal Saline 1,000 ML 100 ML IV ×3 (00:08→18:02)
[2022-12-15] MEDS: Insulin Lispro 100 UNIT/ML INSULN.PEN SC ×4 (00:24→23:00)
[2022-12-15 00:38] LABS: Bedside Glucose 177 mg/dL (74-106)
--- NOTE | 2022-12-15 02:32 | EKG12_ITS ---
Test Reason : AM EKG Blood Pressure : / mmHG Vent. Rate : 064 BPM Atrial Rate : 064 BPM P-R Int : 210 ms QRS Dur : 106 ms QT Int : 492 ms P-R-T Axes : 001 098 031 degrees QTc Int : 507 ms Sinus rhythm with 1st degree A-V block Prolonged QT Abnormal ECG No previous ECGs available Confirmed by CHIO LATHAM, SYLVESTER ([id number]), acquisition editor RENATO BURGOS ([id number]) on 12/16/2022 9:24:27 AM Referred By: DR CHIANG Confirmed By:SYLVESTER BARROSO MD
--- NOTE | 2022-12-15 05:00 | RAD_ITS ---
INDICATION: preop cough. EXAMINATION/TECHNIQUE: X-RAY - XR Chest 1 View AP portable. 4:35 AM COMPARISON: 05/18/2020 FINDINGS: LINES/DEVICES: None. LUNGS: Relatively low lung volumes. Prominence of interstitial lung markings likely mild pulmonary vascular congestion.. No consolidation. No pneumothorax. MEDIASTINUM: The aorta is atherosclerotic. CARDIAC SILHOUETTE: Not enlarged. Sternal wires. BONES AND SOFT TISSUES: No acute abnormalities. RAD/Chest 1 View (Portable) IMPRESSION: Likely mild pulmonary vascular congestion/edema. Electronically Signed: Jess Morgan MD at 5:24 EDT ,
[2022-12-15] MEDS: Levothyroxine 50 MCG Tablet PO (05:46)
[2022-12-15 06:22] LABS: Bedside Glucose 152 mg/dL (74-106)
[2022-12-15 07:15] LABS: Absolute Lymphocyte Count 0.86 X10^3/uL (0.83-4.51); Absolute Neutrophil Count 14.5 X10^3/uL (2.0-7.7); Basophil# 0.02 X10^3/uL; Basophil% 0.1 % (0-1); Eosinophil# 0.03 X10^3/uL; Eosinophils% 0.2 % (0-5); Hematocrit 35.8 % (40-54); Hemoglobin 11.3 g/dL (13.0-16.5); Lymphocyte # 0.86 X10^3/ul (0.83-4.51); Lymphocyte % 4.9 % (19-41); Mean Corp Hgb Conc 31.6 g/dL (32-36); Mean Corpuscular Hgb 27.8 pg (27.0-32.0); Mean Platelet Vol. 11.4 fl (6.2-12.0); Monocyte# 1.68 X10^3/uL; Monocyte% 9.5 % (0-10); NRBC Flagged by Analyzer 0 % (0-5); Neutrophil # 14.54 X10^3/uL (2.7-7.7); POSITIVE DIFFERENTIAL YES; Platelet Count 210 K/mm3 (150-450); RBC Distribution Width CV 14.6 % (11.6-14.6); RBC Distribution Width SD 47.2 fl (35.1-43.9); Red Blood Count 4.07 M/mm3 (4.6-6.2); White Blood Count 17.7 K/mm3 (4.4-11.0)
[2022-12-15 07:17] LABS: Differential Indicated SCAN CRITERIA MET
[2022-12-15 07:35] LABS: International Normalized Ratio 1.3; Prothrombin Time (Protime)PT. 16.5 SECONDS (11.7-14.9)
[2022-12-15] MEDS: Budesonide Respules 0.5 MG/2 ML AMPUL.NEB. INHALATION ×2 (07:46→19:44)
[2022-12-15 07:48] LABS: ALB/GLOB Ratio 0.6 RATIO (0.9-2.4); AST(SGOT) 114 U/L (15-37); Alanine Aminotransfer ALT/SGPT 171 U/L (16-61); Albumin, Serum 2.3 g/dL (3.2-5.0); Alkaline Phosphatase 307 U/L (45-117); Anion Gap 7 (5-15); BUN 43 mg/dL (7-18); BUN/Creat Ratio 22.4 RATIO (10-20); Chloride 103 mmol/L (98-107); Creatinine, Serum 1.92 mg/dL (0.70-1.30); EST Glomerular Filtration Rate 36 mL/min (>60); Est Glom Filt Rate - Afr Amer 43 mL/min (>60); Estimated Creatinine Clearance 27.23 ml/min; Globulin 3.9 g/dL (2.2-4.2); Glucose 154 mg/dL (74-106); Partial Thromboplast Time 38.5 Seconds (24.1-36.2); Potassium 3.8 mmol/L (3.5-5.1); Protein, Total 6.2 g/dL (6.4-8.2); Sodium Level 133 mmol/L (136-145)
[2022-12-15] MEDS: Citalopram 10 MG Tablet PO (08:29)
[2022-12-15] MEDS: Amiodarone 200 MG Tablet PO (08:29)
[2022-12-15] MEDS: Carvedilol 3.125 MG TABLET PO ×2 (08:29→22:17)
[2022-12-15 08:37] LABS: Hemoglobin A1c 6.9 % (3.8-5.6)
--- NOTE | 2022-12-15 09:07 | PN.HOSP_ITS ---
Reason for Visit Reason for Visit: Diagnoses Calculus of gallbladder with acute cholecystitis with obstruction (12/14/22) Calculus of bile duct without cholangitis or cholecystitis without obstruction (12/14/22) Subjective Subjective Feels well. No events overnight. Objective Data Objective Data Vital Signs: Vital Signs Temp Pulse Resp BP Pulse Ox O2 Del Method O2 Flow Rate 37.3 C 63 20 H 122/52 H 92 Nasal Cannula 2 12/15/22 06:00 12/15/22 07:48 12/15/22 07:48 12/15/22 06:00 12/15/22 07:48 12/15/22 07:48 12/15/22 07:48 Oxygen Flow Rate (L/min) 2 Oxygen Delivery Method Nasal Cannula Weight: 84.822 kg Body Mass Index (BMI) 30.2 Intake & Output: Intake and Output for Last 24 Hours 12/13/22 12/14/22 12/15/22 23:59 23:59 23:59 Intake Total 2520 / 2720 250 / 250 Output Total 275 / 425 300 / 300 Balance 2245 / 2295 -50 / -50 Lab / Micro Data 12/15/22 06:51 12/15/22 06:51 Labs: Laboratory Results - last 24 hr 12/14/22 11:22: POC Glucose 117 H 12/14/22 17:26: POC Glucose 151 H 12/14/22 22:12: POC Glucose 204 H 12/15/22 00:19: POC Glucose 177 H 12/15/22 05:56: POC Glucose 152 H 12/15/22 06:51: WBC 17.7 H, RBC 4.07 L, Hgb 11.3 L, Hct 35.8 L, MCV 88.0, MCH 27.8, MCHC 31.6 L, RDW Std Deviation 47.2 H, RDW Coeff of Sheri 14.6, Plt Count 210, MPV 11.4, Immature Gran % (Auto) 3.300 H, Neut % (Auto) 82.0 H, Lymph % (Auto) 4.9 L, [place] % (Auto) 9.5, Eos % (Auto) 0.2, Baso % (Auto) 0.1, Absolute Neuts (auto) 14.5 H, Absolute Lymphs (auto) 0.86, Nucleated RBC % 0, Differentia l Comment COMMENT, Diff Path Review May foll, PT 16.5 H, INR 1.3, APTT 38.5 H, Sodium 133 L, Potassium 3.8, Chloride 103, Carbon Dioxide 23.0, Anion Gap 7, BUN 43 H, Creatinine 1.92 H, Estim Creat Clear Calc 27.23, Est GFR (MDRD) Af Amer 43 L, Est GFR (MDRD) Non-Af 36 L, BUN/Creatinine Ratio 22.4 H, Glucose 154 H, Hemoglobin A1c 6.9 H, Calcium 8.0 L, Total Bilirubin 2.30 H, AST 114 H, ALT 171 H, Alkaline Phosphatase 307 H, Total Protein 6.2 L, Albumin 2.3 L, Globulin 3.9, Albumin/Globulin Ratio 0.6 L, TSH 1.50 Radiography Diagnostic Testing: Radiology Impression Gallbladder Ultrasound 12/14/22 11:43 IMPRESSION: Hepatomegaly. Multiple gallstones and small amount of sludge in the gallbladder lumen. Trace amount of pericholecystic fluid. Hepatic cyst within the left lobe. Electronically Signed: Daniel Rodriguez MD at 15:14 EDT , Chest X-Ray 12/15/22 05:00 IMPRESSION: Likely mild pulmonary vascular congestion/edema. Electronically Signed: Jess Morgan MD at 5:24 EDT , Physical Exam Const alert and no apparent distress HEENT head/scalp atraumatic, moist oral mucous membranes, oropharynx normal and dentition normal Resp normal respiratory effort, no retractions, no use of accessory muscles and clear to auscultation bilaterally Cardio regular rate, regular rhythm, S1 normal heart sound and S2 normal heart sound GI normal to inspection, nondistended, normoactive bowel sounds, soft to palpation and non-distended Extremity normal to inspection and full ROM Assessment & Plan Assessment/Plan (1) Choledocholithiasis: PLAN: With cholecystitis On pip/tazo NPO IVF GI for ERCP GS, DW Dr. Palumbo on 12/14. Feels patient is a high risk of complications with surgery. He recommends cholecystotomy tube PLAN: Plan Chronic conditions: * h/o GCA: completed steroids. Follow up w rheum as outpt * PAD: h/o carotid stenosis w/ h/o CEA. Hold ASA. Follow up with vascular surgery (Dr. Weinstein) * DM2: insulin-dependent. continue glargine and SSI * CKD IIIb: improved from 2020. monitor * HTN: continue carvedilol * HLP: statin held given choledocholithiasis * hypothyroidism: continue levothyroxine * pafib: continue amiodarone. apixaban held given pending intervention * chronic right vision loss: f/u w ophtho * CAD: s/p CABG. hold ASA. Continue carvedilol * COPD w chronic resp failure: stable. * Dementia: caution with medication. * Anxiety/depression: continue citalopram. VTE prophylaxis: SCDs Code Status: DNRCCA, no intubation. Charges/Coding Visit Charges Inpatient E&M: 26489 Subs Hosp L2
--- NOTE | 2022-12-15 10:46 | CASEMGMT ---
Social Work SW spoke with pt dgt Petra Linette who confirms pt has a living will and health care POA naming her. Petra states [employer] has a copy of the documents. Message sent to [employer] requesting documents be faxed to [facility]. JANETH Hernandez
--- NOTE | 2022-12-15 10:48 | CASEMGMT ---
Social Work Pt admitted from [facility]. 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 Petra states if pt need rehab, she is requesting pt go to [facility], otherwise return to [facility]. ZINA spoke with therapy who do not feel pt will benefit from skilled services at [facility]. Pt to return to [facility] at time of discharge. tramaine Holland cosmetic sales assistant updated and to send clinicals to [facility]. Plan: [facility], when medically ready JANETH Hernandez
--- NOTE | 2022-12-15 10:59 | CASEMGMT ---
Discharge Planning Patient resides at [facility]. Updates sent via [employer] and advanced directives requested. Amalia Mace, Discharge Planning Asst.
--- NOTE | 2022-12-15 11:23 | PCM.PN.SRG ---
Subjective Subjective Patient seen and examined during AM rounds. He reports feeling somewhat better. He is lying in bed and has several questions related to the timing of today's planned procedures. Objective Data Objective Data Vital Signs: Vital Signs Temp Pulse Resp BP Pulse Ox O2 Del Method O2 Flow Rate 99.1 F 63 20 H 122/52 H 92 Nasal Cannula 2 12/15/22 06:00 12/15/22 07:48 12/15/22 07:48 12/15/22 06:00 12/15/22 07:48 12/15/22 10:00 12/15/22 10:00 Oxygen Flow Rate (L/min) 2 Oxygen Delivery Method Nasal Cannula Weight: 187 lb 0.008 oz Body Mass Index (BMI) 30.2 Intake & Output: Intake and Output for Last 24 Hours 12/13/22 12/14/22 12/15/22 23:59 23:59 23:59 Intake Total 2520 / 2720 1385 / 1385 Output Total 275 / 425 300 / 300 Balance 2245 / 2295 1085 / 1085 Lab / Micro Data 12/15/22 06:51 12/15/22 06:51 Labs: Laboratory Results - last 24 hr 12/14/22 11:22: POC Glucose 117 H 12/14/22 17:26: POC Glucose 151 H 12/14/22 22:12: POC Glucose 204 H 12/15/22 00:19: POC Glucose 177 H 12/15/22 05:56: POC Glucose 152 H 12/15/22 06:51: WBC 17.7 H, RBC 4.07 L, Hgb 11.3 L, Hct 35.8 L, MCV 88.0, MCH 27.8, MCHC 31.6 L, RDW Std Deviation 47.2 H, RDW Coeff of Sheri 14.6, Plt Count 210, MPV 11.4, Immature Gran % (Auto) 3.300 H, Neut % (Auto) 82.0 H, Lymph % (Auto) 4.9 L, [place] % (Auto) 9.5, Eos % (Auto) 0.2, Baso % (Auto) 0.1, Absolute Neuts (auto) 14.5 H, Absolute Lymphs (auto) 0.86, Nucleated RBC % 0, Differential Comment COMMENT, Diff Path Review October, PT 16.5 H, INR 1.3, APTT 38.5 H, Sodium 133 L, Potassium 3.8, Chloride 103, Carbon Dioxide 23.0, Anion Gap 7, BUN 43 H, Creatinine 1.92 H, Estim Creat Clear Calc 27.23, Est GFR (MDRD) Af Amer 43 L, Est GFR (MDRD) Non-Af 36 L, BUN/Creatinine Ratio 22.4 H, Glucose 154 H, Hemoglobin A1c 6.9 H, Calcium 8.0 L, Total Bilirubin 2.30 H, AST 114 H, ALT 171 H, Alkaline Phosphatase 307 H, Total Protein 6.2 L, Albumin 2.3 L, Globulin 3.9, Albumin/Globulin Ratio 0.6 L, TSH 1.50 Radiography Diagnostic Testing: Radiology Impression Gallbladder Ultrasound 12/14/22 11:43 IMPRESSION: Hepatomegaly. Multiple gallstones and small amount of sludge in the gallbladder lumen. Trace amount of pericholecystic fluid. Hepatic cyst within the left lobe. Electronically Signed: Daniel Rodriguez MD at 15:14 EDT , Chest X-Ray 12/15/22 05:00 IMPRESSION: Likely mild pulmonary vascular congestion/edema. Electronically Signed: Jess Morgan MD at 5:24 EDT , Physical Exam Const oriented x3 and no apparent distress Resp normal respiratory effort GI GI Narrative: Nondistended, soft, mildly tender to palpation left lower quadrant and remains tender to palpation in the right upper quadrant. Assessment & Plan Assessment/Plan (1) Calculous cholecystitis with obstruction: PLAN: Patient remains tender with significant discomfort of the right upper quadrant with exam. White blood cell count somewhat improved now into his second day with IV antibiotic therapy. Patient high risk operative candidate on account of his significant comorbidity index. Therefore, I have recommended percutaneous cholecystostomy tube placement with radiology. Rationale and recommendation reviewed with radiology directly. Procedure tentatively scheduled for this afternoon. (2) Choledocholithiasis: PLAN: Patient pending ERCP with gastroenterology later today. Charges/Coding Visit Charges Inpatient E&M: 01327 Subs Hosp L2
[2022-12-15 11:51] LABS: Bedside Glucose 145 mg/dL (74-106)
--- NOTE | 2022-12-15 12:20 | RAD_ITS ---
STUDY: ERCP. REASON FOR EXAM: Male, 82 years old. ERCP FLUOROSCOPY TIME (if supplied): ( 80.5 seconds ) minutes/seconds. 25.24 mGy TECHNIQUE: Imaging was provided for ERCP. COMPARISON: None. FINDINGS: Intraoperative imaging provided for ERCP. RAD/ERCP Biliary/Pancreas IMPRESSION: Intraoperative imaging provided for ERCP. Electronically Signed: Daniel Rodriguez MD at 15:53 EDT ,
[2022-12-15 13:18] LABS: Pathologist Review Reviewed
[2022-12-15 13:21] LABS: Pathologist Review Reviewed
--- NOTE | 2022-12-15 13:33 | NURSING ---
Per radiology, plan on biopsy tomorrow 12/16 at 1000. NPO at midnight. Have pt downstairs at 0930
--- NOTE | 2022-12-15 13:59 | OP.ERCP_ITS ---
Patient Name: Geoffrey Montero Procedure Date: 12/15/2022 1:11 PM Date of : 1940 Age: 82 Procedure: ERCP Indications: Bile duct stone(s) Providers: Sohail Owen DO Medicines: Monitored Anesthesia Care Patient Profile: This is an 82 year old male. Refer to note in patient chart for documentation of history and physical. Patient has symptoms of acute jaundice and acute nausea. Complications: No immediate complications. Procedure: Pre-Anesthesia Assessment: - Prior to the procedure, a History and Physical was performed, and patient medications and allergies were reviewed. The patient is competent. The risks and benefits of the procedure and the sedation options and risks were discussed with the patient. All questions were answered and informed consent was obtained. Patient identification and proposed procedure were verified by the physician in the pre-procedure area. Mental Status Examination: alert and oriented. Airway Examination: normal oropharyngeal airway and neck mobility. Respiratory Examination: clear to auscultation. CV Examination: normal. Prophylactic Antibiotics: The patient does not require prophylactic antibiotics. Prior Anticoagulants: The patient has taken no previous anticoagulant or antiplatelet agents. ASA Grade Assessment: II - A patient with mild systemic disease. After reviewing the risks and benefits, the patient was deemed in satisfactory condition to undergo the procedure. The anesthesia plan was to use monitored anesthesia care (MAC). Immediately prior to administration of medications, the patient was re-assessed for adequacy to receive sedatives. The heart rate, respiratory rate, oxygen saturations, blood pressure, adequacy of pulmonary ventilation, and response to care were monitored throughout the procedure. The physical status of the patient was re-assessed after the procedure. After obtaining informed consent, the scope was passed under direct vision. Throughout the procedure, the patient's blood pressure, pulse, and oxygen saturations were monitored continuously. The Duodenoscope was introduced through the mouth, and advanced to the duodenum and used to inject contrast into the bile duct. The ERCP was accomplished without difficulty. The patient tolerated the procedure well. Findings: The cane splicer film was normal. The esophagus was successfully intubated under direct vision. The scope was advanced to a normal major papilla in the descending duodenum without detailed examination of the pharynx, larynx and associated structures, and upper GI tract. The upper GI tract was grossly normal. The bile duct was deeply cannulated with the short-nosed traction sphincterotome. Contrast was injected. I personally interpreted the bile duct images. Opacification of the main bile duct was successful. The maximum diameter of the ducts was 10 mm. The lower third of the main bile duct contained one stone, which was 3 mm in diameter. The main bile duct was diffusely dilated, with a stone causing an obstruction. The largest diameter was 9 mm. A 0.025 inch x 450 cm angled Visiglide wire was passed into the biliary tree. A 5 mm biliary sphincterotomy was made with a traction (standard) sphincterotome using ERBE electrocautery. There was no post-sphincterotomy bleeding. The biliary tree was swept with a 12 mm balloon starting at the bifurcation. Sludge was swept from the duct. All stones were removed. The lower third of the main bile duct was successfully dilated with an 8-9-10 mm balloon (to a maximum balloon size of 9 mm) dilator. One 10 Fr by 7 cm temporary stent was placed 5 cm into the common bile duct. Bile flowed through the stent. The stent was in good position. Impression: - The entire main bile duct was dilated, with a stone causing an obstruction. - Choledocholithiasis was found. Complete removal was accomplished by biliary sphincterotomy and balloon extraction. - A biliary sphincterotomy was performed. - The biliary tree was swept. - The lower third of the main bile duct was successfully dilated. - One temporary stent was placed into the common bile duct. Procedure Code(s): --- Professional --- 62780, Endoscopic retrograde cholangiopancreatography (ERCP); with placement of endoscopic stent into biliary or pancreatic duct, including pre- and post-dilation and guide wire passage, when performed, including sphincterotomy, when performed, each stent [id number], Endoscopic retrograde cholangiopancreatography (ERCP); with removal of calculi/debris from biliary/pancreatic duct(s) 55004, 26, Endoscopic catheterization of the biliary ductal system, radiological supervision and interpretation CPT copyright 2017 [employer] [place] [employer]. All rights reserved. The codes documented in this report are preliminary and upon business performance specialist review may be revised to meet current compliance requirements. Sohail Owen DO 12/15/2022 1:59:23 PM This report has been signed electronically. Number of Addenda: 0 Note Initiated On: 12/15/2022 1:11 PM
--- NOTE | 2022-12-15 14:00 | OP.CCLET_ITS ---
12/15/2022 Dexter Reyes MD [address] [place] [address] Re : ERCP procedure for Geoffrey Montero Dear Dr. Reyes This procedure was performed on November. My impressions and recommendations are as follows: Impressions : - The entire main bile duct was dilated, with a stone causing an obstruction. - Choledocholithiasis was found. Complete removal was accomplished by biliary sphincterotomy and balloon extraction. - A biliary sphincterotomy was performed. - The biliary tree was swept. - The lower third of the main bile duct was successfully dilated. - One temporary stent was placed into the common bile duct. Recommendations : My findings are described in the full procedure note, which is enclosed. If I can be of further assistance, please feel free to contact me at . Sincerely, Sohail Owen, 12/15/2022 1:59:23 PM This report has been signed electronically.
[2022-12-15 14:44] LABS: Bedside Glucose 155 mg/dL (74-106)
[2022-12-15 17:25] LABS: Bedside Glucose 249 mg/dL (74-106)
[2022-12-15] MEDS: Acetaminophen 325 MG Tablet 650 MG PO (18:03)
--- NOTE | 2022-12-15 18:26 | NURSING ---
On the AUG, it was charted that the 1400 dose of zosyn was given. When pt came up from surgery, the 1400 bag of zosyn was hanging on the IV pole unopened. This RN contacted Dr Haywood to see if this dose should be given late, or skipped altogether since it was never given despite being charted by surgery.
[2022-12-15] MEDS: Insulin Glargine-YFGN 100 UNIT/ML Pen 10 UNIT SC (22:54)
[2022-12-15 23:28] LABS: Bedside Glucose 279 mg/dL (74-106)
[2022-12-16] VITALS (14 sets, daily range): BP systolic 94–168; BP diastolic 37–143; PULSE 50–57; RESP 14–18; TEMP 36.4–36.9; O2SAT 3–100; BMI 17.5
[2022-12-16] MEDS: 0.9% Normal Saline 1,000 ML 100 ML IV ×2 (04:59→14:45)
[2022-12-16 05:25] LABS: Absolute Lymphocyte Count 0.63 X10^3/uL (0.83-4.51); Absolute Neutrophil Count 11.8 X10^3/uL (2.0-7.7); Basophil# 0.01 X10^3/uL; Basophil% 0.1 % (0-1); Hematocrit 34.9 % (40-54); Hemoglobin 11.5 g/dL (13.0-16.5); Lymphocyte # 0.63 X10^3/ul (0.83-4.51); Lymphocyte % 4.6 % (19-41); Mean Corpuscular Volume 87.9 fL (80-94); Mean Platelet Vol. 11.3 fl (6.2-12.0); Monocyte# 1.13 X10^3/uL; Monocyte% 8.2 % (0-10); NRBC Flagged by Analyzer 0 % (0-5); Neutrophil # 11.76 X10^3/uL (2.7-7.7); Neutrophil % 84.9 % (47-70); Platelet Count 193 K/mm3 (150-450); RBC Distribution Width CV 14.7 % (11.6-14.6); RBC Distribution Width SD 47.8 fl (35.1-43.9); Red Blood Count 3.97 M/mm3 (4.6-6.2); White Blood Count 13.8 K/mm3 (4.4-11.0)
[2022-12-16 05:34] LABS: International Normalized Ratio 1.3; Prothrombin Time (Protime)PT. 16.5 SECONDS (11.7-14.9)
[2022-12-16 05:58] LABS: ALB/GLOB Ratio 0.5 RATIO (0.9-2.4); AST(SGOT) 74 U/L (15-37); Alanine Aminotransfer ALT/SGPT 132 U/L (16-61); Albumin, Serum 2.2 g/dL (3.2-5.0); Alkaline Phosphatase 278 U/L (45-117); Anion Gap 7 (5-15); BUN 47 mg/dL (7-18); BUN/Creat Ratio 24.6 RATIO (10-20); Calcium,Total 7.9 mg/dL (8.5-10.1); Chloride 109 mmol/L (98-107); Creatinine, Serum 1.91 mg/dL (0.70-1.30); EST Glomerular Filtration Rate 36 mL/min (>60); Est Glom Filt Rate - Afr Amer 44 mL/min (>60); Estimated Creatinine Clearance 21.23 ml/min; Globulin 4.2 g/dL (2.2-4.2); Glucose 211 mg/dL (74-106); Protein, Total 6.4 g/dL (6.4-8.2); Sodium Level 139 mmol/L (136-145)
[2022-12-16] MEDS: Levothyroxine 50 MCG Tablet PO (06:35)
[2022-12-16] MEDS: Insulin Lispro 100 UNIT/ML INSULN.PEN SC ×4 (06:35→21:34)
[2022-12-16 07:11] LABS: Bedside Glucose 186 mg/dL (74-106)
--- NOTE | 2022-12-16 08:53 | PN.HOSP_ITS ---
Reason for Visit Reason for Visit: Diagnoses Calculus of gallbladder with acute cholecystitis with obstruction (12/14/22) Calculus of bile duct without cholangitis or cholecystitis without obstruction (12/14/22) Subjective Subjective Slept well last night. ERCP yesterday was tolerated well. Nayeli drain place w/o incident. Objective Data Objective Data Vital Signs: Vital Signs Temp Pulse Resp BP Pulse Ox O2 Del Method O2 Flow Rate 36.4 C L 54 L 16 143/63 H 95 Nasal Cannula 2 12/16/22 03:38 12/16/22 03:38 12/16/22 03:38 12/16/22 03:38 12/16/22 03:38 12/16/22 03:38 12/16/22 03:38 FiO2 4 12/15/22 20:05 Oxygen Flow Rate (L/min) 2 Oxygen Delivery Method Nasal Cannula Weight: 49.487 kg Body Mass Index (BMI) 17.5 Intake & Output: Intake and Output for Last 24 Hours 12/14/22 12/15/22 12/16/22 23:59 23:59 23:59 Intake Total 2520 / 2720 2360 / 2560 1275 / 1275 Output Total 275 / 425 475 / 575 100 / 100 Balance 2245 / 2295 1885 / 1985 1175 / 1175 Lab / Micro Data 12/16/22 05:08 12/16/22 05:08 Labs: Laboratory Results - last 24 hr 12/14/22 07:35: Diff Path Review Reviewed 12/15/22 06:51: Diff Path Review Reviewed 12/15/22 11:29: POC Glucose 145 H 12/15/22 14:25: POC Glucose 155 H 12/15/22 17:06: POC Glucose 249 H 12/15/22 22:57: POC Glucose 279 H 12/16/22 05:08: WBC 13.8 H, RBC 3.97 L, Hgb 11.5 L, Hct 34.9 L, MCV 87.9, MCH 29.0, MCHC 33.0, RDW Std Deviation 47.8 H, RDW Coeff of Sheri 14.7 H, Plt Count 193, MPV 11.3, Immature Gran % (Auto) 2.200 H, Neut % (Auto) 84.9 H, Lymph % (Auto) 4.6 L, [place] % (Auto) 8.2, Eos % (Auto) 0.0, Baso % (Auto) 0.1, Absolute Neuts (auto) 11.8 H, Absolute Lymphs (auto) 0.63 L, Nucleated RBC % 0, PT 16.5 H , INR 1.3, Sodium 139, Potassium 4.0, Chloride 109 H, Carbon Dioxide 23.0, Anion Gap 7, BUN 47 H, Creatinine 1.91 H, Estim Creat Clear Calc 21.23, Est GFR (MDRD) Af Amer 44 L, Est GFR (MDRD) Non-Af 36 L, BUN/Creatinine Ratio 24.6 H, Glucose 211 H, Calcium 7.9 L, Total Bilirubin 2.00 H, AST 74 H, ALT 132 H, Alkaline Phosphatase 278 H, Total Protein 6.4, Albumin 2.2 L, Globulin 4.2, Albumin/Globulin Ratio 0.5 L 12/16/22 06:35: POC Glucose 186 H Radiography Diagnostic Testing: Radiology Impression Endo Retro Cholangiopancreatogram 12/15/22 12:20 IMPRESSION: Intraoperative imaging provided for ERCP. Electronically Signed: Daniel Rodriguez MD at 15:53 EDT , Physical Exam Const alert and no apparent distress Resp normal respiratory effort, no retractions, no use of accessory muscles and clear to auscultation bilaterally Cardio regular rate, regular rhythm, S1 normal heart sound and S2 normal heart sound GI normal to inspection, nondistended, normoactive bowel sounds, soft to palpation and non-tender GI Narrative: BLANQUITA drain w serosanguinous fluid. Extremity Extremity Narrative: bilateral BKA stump intact. Assessment & Plan Assessment/Plan (1) Choledocholithiasis: PLAN: With cholecystitis On pip/tazo NPO IVF ERCP on 12/15: removal by biliary sphincterotomy and balloon extraction. Stent placed. (2) Calculous cholecystitis with obstruction: PLAN: GS, DW Dr. Palumbo on 12/14. Feels patient is a high risk of complications with surgery. He recommends cholecystotomy tube pip/tazo Perc nayeli tube placed 12/16. Follow up with general surgery as outpt (3) Renal mass: PLAN: noted on CT from [facility] L kidney mass 3.2 x 3 x 3.5 cm. Concerning for RCC. Check US PLAN: Plan Chronic conditions: * h/o GCA: completed steroids. Follow up w rheum as outpt * PAD: h/o carotid stenosis w/ h/o CEA. Hold ASA. Follow up with vascular surgery (Dr. Weinstein) * DM2: insulin-dependent. continue glargine and SSI * CKD IIIb: improved from 2020. monitor * HTN: continue carvedilol * HLP: statin held given choledocholithiasis * hypothyroidism: continue levothyroxine * pafib: continue amiodarone. apixaban held given pending intervention * chronic right vision loss: f/u w ophtho * CAD: s/p CABG. hold ASA. Continue carvedilol * COPD w chronic resp failure: stable. * Dementia: caution with medication. * Anxiety/depression: continue citalopram. VTE prophylaxis: SCDs Code Status: DNRCCA, no intubation. Charges/Coding Visit Charges Inpatient E&M: 41592 Subs Hosp L2
--- NOTE | 2022-12-16 09:26 | US_ITS ---
STUDY: RENAL ULTRASOUND - COMPLETE REASON FOR EXAM: Male, 82 years old. Left kidney mass -- noted on CT from [facility] TECHNIQUE: Ultrasound evaluation of the kidneys was performed with real-time and static zazueta-scale imaging. COMPARISON: None. FINDINGS: RIGHT KIDNEY: Normal location of the right kidney, which is normal in size. The right kidney measures 11.7 cm x 7.3 cm x 7.1 cm. There is a normal cortex of the right kidney. The renal cortex measures 2.1 cm. There is no right renal mass or cyst. There are no right renal calculi. There is no right hydronephrosis. DISTAL RIGHT URETER: There is non-visualization of the distal right ureter. There is no demonstrated right ureterovesical junction calculus. There is no demonstrated right ureteral jet. LEFT KIDNEY: Normal location of the left kidney, which is normal in size. The left kidney measures 11 cm x 6.1 cm x 6.3 cm. There is a normal cortex of the left kidney. The renal cortex measures 1.8 cm. There is a 4.5 cm x 3.8 cm x 3.8 cm heterogeneous solid mass with calcifications. A neoplastic process should be ruled out. There are no left renal calculi. There is no left hydronephrosis. DISTAL LEFT URETER: There is non-visualization of the distal left ureter. There is no demonstrated left ureterovesical junction calculus. There is no demonstrated left ureteral jet. BLADDER: The distended urinary bladder has a volume of 794 ml. There is a normal wall thickness of the distended urinary bladder. There is no demonstrated mass within the urinary bladder. There are no demonstrated bladder calculi. US/Kidney and Bladder IMPRESSION: 4.5 cm x 3.8 cm x 3.8 cm complex heterogeneous solid mass in the left kidney with calcifications. A neoplastic process should be ruled out. Electronically Signed: Daniel Rodriguez MD at 14:41 EDT ,
--- NOTE | 2022-12-16 10:00 | CT_ITS ---
STUDY: CT SCAN GUIDED PERCUTANEOUS CHOLECYSTOSTOMY. REASON FOR EXAM: Male, 82 years old. cholecystitis RADIATION DOSAGE (If Supplied By Facility): CTDIvol = ( 28.9 ) mGy, DLP = ( 1801.37 ) mGycm. Individualized dose optimization techniques were used for this CT.? TECHNIQUE: The patient was in the supine position. The overlying skin was prepped and draped in usual sterile fashion. Conscious sedation was performed. The patient received 1 mg of Versed and 25 mcg of fentanyl intravenously. Conscious sedation was started 10:27 AM and terminated at 10:52 AM. The patient tolerated the procedure well. An 8 Lao percutaneous catheter was placed into the gallbladder lumen. 100 cc of dark purulent material was withdrawn. The catheter was left in place. The patient tolerated the procedure well. CT/Biopsy/Inj or Needle Placement IMPRESSION: Successful percutaneous cholecystostomy with 8 Lao catheter. 100 cc of dark. Material was aspirated. The patient tolerated the procedure well. Conscious sedation protocol was followed. Electronically Signed: Daniel Rodriguez MD at 11:59 EDT ,
[2022-12-16] MEDS: fentaNYL 100 MCG/2 ML Ampul IV (10:27)
[2022-12-16] MEDS: Midazolam 2 MG/2 ML Syringe IV (10:29)
[2022-12-16] MEDS: Lidocaine 2% (20 ml mdv) 20 ML Vial INFILT (10:56)
[2022-12-16] MEDS: 0.9% Saline Lock 10 ML Syringe IV (10:57)
--- NOTE | 2022-12-16 11:53 | CASEMGMT ---
Discharge Planning Notified [facility] via [facility] of possible weekend discharge. Requested phone/fax number and asked if Covid test is required. Awaiting response. Amalia Mace, Discharge Planning Asst.
--- NOTE | 2022-12-16 12:19 | NURSING ---
Dr. Haywood notified of patient's return from radiology. Verified diet order. notified of heart rate of 50 with amiodarone and coreg ordered. Per pt to have a 2000kcal diet and hold both amiodarone and coreg if heart rate under 60.
[2022-12-16 12:25] LABS: Bedside Glucose 184 mg/dL (74-106)
[2022-12-16 13:37] LABS: Bedside Glucose 141 mg/dL (74-106)
[2022-12-16] MEDS: Citalopram 10 MG Tablet PO (14:09)
[2022-12-16] MEDS: Polyethylene Glycol 3350 17 GM PACKET PO (14:09)
[2022-12-16 17:18] LABS: Bedside Glucose 169 mg/dL (74-106)
--- NOTE | 2022-12-16 17:38 | EX.PCM.PN.GI ---
Subjective Subjective Patient underwent ERCP yesterday for biliary obstruction and had multiple stones removed and also had a temporary stent placed yesterday. He denies any abdominal pain, nausea or vomiting. Objective Data Objective Data Vital Signs: Vital Signs Temp Pulse Resp BP Pulse Ox O2 Del Method O2 Flow Rate 98 F 57 L 18 94/47 L 97 Nasal Cannula 2 12/16/22 17:30 12/16/22 17:30 12/16/22 17:30 12/16/22 17:30 12/16/22 17:30 12/16/22 17:30 12/16/22 17:30 FiO2 4 12/15/22 20:05 Oxygen Flow Rate (L/min) [6] 3 Oxygen Flow Rate (L/min) [5] 3 Oxygen Flow Rate (L/min) [4] 3 Oxygen Flow Rate (L/min) [3] 3 Oxygen Flow Rate (L/min) [2] 3 Oxygen Flow Rate (L/min) [1 ( 3 Initial Baseline)] Oxygen Flow Rate (L/min) 2 Oxygen Delivery Method [6] Nasal Cannula Oxygen Delivery Method [5] Nasal Cannula Oxygen Delivery Method [4] Nasal Cannula Oxygen Delivery Method [3] Nasal Cannula Oxygen Delivery Method [2] Nasal Cannula Oxygen Delivery Method [1 ( Nasal Cannula Initial Baseline)] Oxygen Delivery Method Nasal Cannula Weight: 109 lb 1.6 oz Body Mass Index (BMI) 17.5 Intake & Output: Intake and Output for Last 24 Hours 12/14/22 12/15/22 12/16/22 23:59 23:59 23:59 Intake Total 2520 / 2720 2360 / 2560 3161.67 / 3161.67 Output Total 275 / 425 475 / 575 825 / 825 Balance 2245 / 2295 1884 / 1984 2336.67 / 2336.67 Lab / Micro Data 12/16/22 05:08 12/16/22 05:08 Labs: Laboratory Results - last 24 hr 12/14/22 07:00: POC Glucose 138 H 12/14/22 13:50: POC Glucose 141 H 12/15/22 22:57: POC Glucose 279 H 12/16/22 05:08: WBC 13.8 H, RBC 3.97 L, Hgb 11.5 L, Hct 34.9 L, MCV 87.9, MCH 29.0, MCHC 33.0, RDW Std Deviation 47.8 H, RDW Coeff of Sheri 14.7 H, Plt Count 193, MPV 11.3, Immature Gran % (Auto) 2.200 H, Neut % (Auto) 84.9 H, Lymph % (Auto) 4.6 L, [place] % (Auto) 8.2, Eos % (Auto) 0.0, Baso % (Auto) 0.1, Absolute Neuts (auto) 11.8 H, Absolute Lymphs (auto) 0.63 L, Nucleated RBC % 0, PT 16.5 H, INR 1.3, Sodium 139, Potassium 4.0, Chloride 109 H, Carbon Dioxide 23.0, Anion Gap 7, BUN 47 H, Creatinine 1.91 H, Estim Creat Clear Calc 21.23, Est GFR (MDRD) Af Amer 44 L, Est GFR (MDRD) Non-Af 36 L, BUN/Creatinine Ratio 24.6 H, Glucose 211 H, Calcium 7.9 L, Total Bilirubin 2.00 H, AST 74 H, ALT 132 H, Alkaline Phosphatase 278 H, Total Protein 6.4, Albumin 2.2 L, Globulin 4.2, Albumin/Globulin Ratio 0.5 L 12/16/22 06:35: POC Glucose 186 H 12/16/22 11:57: POC Glucose 184 H 12/16/22 16:51: POC Glucose 169 H Radiography Diagnostic Testing: Radiology Impression Renal Ultrasound 12/16/22 09:26 IMPRESSION: 4.5 cm x 3.8 cm x 3.8 cm complex heterogeneous solid mass in the left kidney with calcifications. A neoplastic process should be ruled out. Electronically Signed: Daniel Rodriguez MD at 14:41 EDT , Biopsy CT 12/16/22 10:00 IMPRESSION: Successful percutaneous cholecystostomy with 8 Lithuanian catheter. 100 cc of dark. Material was aspirated. The patient tolerated the procedure well. Conscious sedation protocol was followed. Electronically Signed: Daniel Rodriguez MD at 11:59 EDT , Physical Exam Const alert and no apparent distress Resp normal respiratory effort, no retractions, no use of accessory muscles and clear to auscultation bilaterally Cardio regular rate, regular rhythm, S1 normal heart sound and S2 normal heart sound GI normal to inspection, nondistended, normoactive bowel sounds, soft to palpation and non-tender GI Narrative: BLANQUITA drain w serosanguinous fluid. Extremity Extremity Narrative: bilateral BKA stump intact. Assessment & Plan Assessment/Plan (1) Choledocholithiasis: PLAN: Patient is doing very well and regarding his biliary system. His LFTs are trending down nicely. He did get cholecystostomy tube placed. He has minor pain at the incision site but he continues to be afebrile, his biochemistries are okay. Recommended continue antibiotic therapy. Charges/Coding Visit Charges Inpatient E&M: 71656 Subs Hosp L3
--- NOTE | 2022-12-16 18:10 | PN.SURG_ITS ---
Subjective Subjective Patient seen and examined during p.m. rounds. He is sitting up in bed resting. He reports recently completing lunch and getting full quickly, but otherwise tolerating a diet. He states it was painless to have his cholecystostomy tube inserted and he now feels rather well. Objective Data Objective Data Vital Signs: Vital Signs Temp Pulse Resp BP Pulse Ox O2 Del Method O2 Flow Rate 98 F 57 L 18 94/47 L 97 Nasal Cannula 2 12/16/22 17:30 12/16/22 17:30 12/16/22 17:30 12/16/22 17:30 12/16/22 17:30 12/16/22 17:30 12/16/22 17:30 FiO2 4 12/15/22 20:05 Oxygen Flow Rate (L/min) [6] 3 Oxygen Flow Rate (L/min) [5] 3 Oxygen Flow Rate (L/min) [4] 3 Oxygen Flow Rate (L/min) [3] 3 Oxygen Flow Rate (L/min) [2] 3 Oxygen Flow Rate (L/min) [1 ( 3 Initial Baseline)] Oxygen Flow Rate (L/min) 2 Oxygen Delivery Method [6] Nasal Cannula Oxygen Delivery Method [5] Nasal Cannula Oxygen Delivery Method [4] Nasal Cannula Oxygen Delivery Method [3] Nasal Cannula Oxygen Delivery Method [2] Nasal Cannula Oxygen Delivery Method [1 ( Nasal Cannula Initial Baseline)] Oxygen Delivery Method Nasal Cannula Weight: 109 lb 1.6 oz Body Mass Index (BMI) 17.5 Intake & Output: Intake and Output for Last 24 Hours 12/14/22 12/15/22 12/16/22 23:59 23:59 23:59 Intake Total 2520 / 2720 2360 / 2560 3161.67 / 3161.67 Output Total 275 / 425 475 / 575 825 / 825 Balance 2245 / 2295 1884 / 1985 2336.67 / 2336.67 Lab / Micro Data 12/16/22 05:08 12/16/22 05:08 Labs: Laboratory Results - last 24 hr 12/14/22 07:00: POC Glucose 138 H 12/14/22 13:50: POC Glucose 141 H 12/15/22 22:57: POC Glucose 279 H 12/16/22 05:08: WBC 13.8 H, RBC 3.97 L, Hgb 11.5 L, Hct 34.9 L, MCV 87.9, MCH 29.0, MCHC 33.0, RDW Std Deviation 47.8 H, RDW Coeff of Shrei 14.7 H, Plt Count 193, MPV 11.3, Immature Gran % (Auto) 2.200 H, Neut % (Auto) 84.9 H, Lymph % (Auto) 4.6 L, [place] % (Auto) 8.2, Eos % (Auto) 0.0, Baso % (Auto) 0.1, Absolute Neuts (auto) 11.8 H, Absolute Lymphs (auto) 0.63 L, Nucleated RBC % 0, PT 16.5 H , INR 1.3, Sodium 139, Potassium 4.0, Chloride 109 H, Carbon Dioxide 23.0, Anion Gap 7, BUN 47 H, Creatinine 1.91 H, Estim Creat Clear Calc 21.23, Est GFR (MDRD) Af Amer 44 L, Est GFR (MDRD) Non-Af 36 L, BUN/Creatinine Ratio 24.6 H, Glucose 211 H, Calcium 7.9 L, Total Bilirubin 2.00 H, AST 74 H, ALT 132 H, Alkaline Phosphatase 278 H, Total Protein 6.4, Albumin 2.2 L, Globulin 4.2, Albumin/Globulin Ratio 0.5 L 12/16/22 06:35: POC Glucose 186 H 12/16/22 11:57: POC Glucose 184 H 12/16/22 16:51: POC Glucose 169 H Radiography Diagnostic Testing: Radiology Impression Renal Ultrasound 12/16/22 09:26 IMPRESSION: 4.5 cm x 3.8 cm x 3.8 cm complex heterogeneous solid mass in the left kidney with calcifications. A neoplastic process should be ruled out. Electronically Signed: Daniel Rodriguez MD at 14:41 EDT , Biopsy CT 12/16/22 10:00 IMPRESSION: Successful percutaneous cholecystostomy with 8 Hungarian catheter. 100 cc of dark. Material was aspirated. The patient tolerated the procedure well. Conscious sedation protocol was followed. Electronically Signed: Daniel Rodriguez MD at 11:59 EDT , Physical Exam Const oriented x3 and no apparent distress Resp normal respiratory effort GI GI Narrative: Right upper quadrant cholecystostomy tube draining clear bile. Mild tenderness of the right upper quadrant?particularly at the emanated site of the cholecystostomy tube. Improved exam overall. Assessment & Plan Assessment/Plan (1) Calculous cholecystitis with obstruction: PLAN: Status post ERCP with stone extraction for choledocholithiasis. Now status post cholecystostomy tube placement. Patient clinically improved. Tolerating regular diet. Trend laboratories and educate patient/family/facility on operation of cholecystostomy tube, but patient should be eligible for discharge this weekend from a clinical standpoint to placement is arranged. I would be happy to see Mr. Montero in outpatient follow-up in 2 weeks following hospital discharge.
[2022-12-16] MEDS: Budesonide Respules 0.5 MG/2 ML AMPUL.NEB. INHALATION (19:15)
[2022-12-16] MEDS: Acetaminophen 325 MG Tablet 650 MG PO (20:17)
[2022-12-16] MEDS: Insulin Glargine-YFGN 100 UNIT/ML Pen 10 UNIT SC (21:22)
[2022-12-16 21:54] LABS: Bedside Glucose 238 mg/dL (74-106)
[2022-12-17 02:15] VITALS: BP 115/55; PULSE 51; RESP 16; TEMP 36.6; O2SAT 95
[2022-12-17] MEDS: 0.9% Normal Saline 1,000 ML 100 ML IV (05:17)
[2022-12-17 06:00] VITALS: BMI 32.6
[2022-12-17] MEDS: Levothyroxine 50 MCG Tablet PO (06:19)
[2022-12-17] MEDS: Insulin Lispro 100 UNIT/ML INSULN.PEN SC (06:19)
[2022-12-17 06:36] LABS: Absolute Lymphocyte Count 0.86 X10^3/uL (0.83-4.51); Absolute Neutrophil Count 8.2 X10^3/uL (2.0-7.7); Basophil# 0.01 X10^3/uL; Basophil% 0.1 % (0-1); Eosinophil# 0.02 X10^3/uL; Eosinophils% 0.2 % (0-5); Hematocrit 34.3 % (40-54); Hemoglobin 11.1 g/dL (13.0-16.5); Lymphocyte # 0.86 X10^3/ul (0.83-4.51); Lymphocyte % 8.4 % (19-41); Mean Corp Hgb Conc 32.4 g/dL (32-36); Mean Corpuscular Hgb 28.4 pg (27.0-32.0); Mean Corpuscular Volume 87.7 fL (80-94); Mean Platelet Vol. 11.4 fl (6.2-12.0); Monocyte# 0.94 X10^3/uL; Monocyte% 9.2 % (0-10); NRBC Flagged by Analyzer 0 % (0-5); Neutrophil # 8.21 X10^3/uL (2.7-7.7); Neutrophil % 80.2 % (47-70); Platelet Count 248 K/mm3 (150-450); RBC Distribution Width CV 14.7 % (11.6-14.6); RBC Distribution Width SD 47.4 fl (35.1-43.9); Red Blood Count 3.91 M/mm3 (4.6-6.2); White Blood Count 10.2 K/mm3 (4.4-11.0)
[2022-12-17 06:40] LABS: Bedside Glucose 173 mg/dL (74-106)
[2022-12-17 07:03] VITALS: PULSE 51; RESP 18; O2SAT 95
[2022-12-17] MEDS: Budesonide Respules 0.5 MG/2 ML AMPUL.NEB. INHALATION (07:03)
--- NOTE | 2022-12-17 07:11 | PCM.PN.SRG ---
Subjective Subjective Patient reports he is feeling better. He denies any nausea or vomiting with his diet. He denies abdominal pain. Objective Data Objective Data Vital Signs: Vital Signs Temp Pulse Resp BP Pulse Ox O2 Del Method O2 Flow Rate 97.8 F 51 L 18 115/55 L 95 Nasal Cannula 2 12/17/22 02:15 12/17/22 07:03 12/17/22 07:03 12/17/22 02:15 12/17/22 07:03 12/17/22 07:03 12/17/22 07:03 FiO2 4 12/15/22 20:05 Oxygen Flow Rate (L/min) [6] 3 Oxygen Flow Rate (L/min) [5] 3 Oxygen Flow Rate (L/min) [4] 3 Oxygen Flow Rate (L/min) [3] 3 Oxygen Flow Rate (L/min) [2] 3 Oxygen Flow Rate (L/min) [1 ( 3 Initial Baseline)] Oxygen Flow Rate (L/min) 2 Oxygen Delivery Method [6] Nasal Cannula Oxygen Delivery Method [5] Nasal Cannula Oxygen Delivery Method [4] Nasal Cannula Oxygen Delivery Method [3] Nasal Cannula Oxygen Delivery Method [2] Nasal Cannula Oxygen Delivery Method [1 ( Nasal Cannula Initial Baseline)] Oxygen Delivery Method Nasal Cannula Weight: 203 lb 4.259 oz Body Mass Index (BMI) 32.6 Intake & Output: Intake and Output for Last 24 Hours 12/15/22 12/16/22 12/17/22 23:59 23:59 23:59 Intake Total 2360 / 2560 3321.67 / 3321.67 1050 / 1050 Output Total 475 / 575 835 / 835 300 / 300 Balance 1884 / 1985 2486.67 / 2486.67 750 / 750 Lab / Micro Data 12/17/22 06:14 12/16/22 05:08 Labs: Laboratory Results - last 24 hr 12/14/22 07:00: POC Glucose 138 H 12/14/22 13:50: POC Glucose 141 H 12/16/22 06:35: POC Glucose 186 H 12/16/22 11:57: POC Glucose 184 H 12/16/22 16:51: POC Glucose 169 H 12/16/22 21:19: POC Glucose 238 H 12/17/22 06:14: WBC 10.2, RBC 3.91 L, Hgb 11.1 L, Hct 34.3 L, MCV 87.7, MCH 28.4, MCHC 32.4, RDW Std Deviation 47.4 H, RDW Coeff of Sheri 14.7 H, Plt Count 248, MPV 11.4, Immature Gran % (Auto) 1.900 H, Neut % (Auto) 80.2 H, Lymph % (Auto) 8.4 L, Dupage % (Auto) 9.2, Eos % (Auto) 0.2, Baso % (Auto) 0.1, Absolute Neuts (auto) 8.2 H, Absolute Lymphs (auto) 0.86, Nucleated RBC % 0 12/17/22 06:18: POC Glucose 173 H Radiography Diagnostic Testing: Radiology Impression Renal Ultrasound 12/16/22 09:26 IMPRESSION: 4.5 cm x 3.8 cm x 3.8 cm complex heterogeneous solid mass in the left kidney with calcifications. A neoplastic process should be ruled out. Electronically Signed: Daniel Rodriguez MD at 14:41 EDT , Biopsy CT 12/16/22 10:00 IMPRESSION: Successful percutaneous cholecystostomy with 8 Nepali catheter. 100 cc of dark. Material was aspirated. The patient tolerated the procedure well. Conscious sedation protocol was followed. Electronically Signed: Daniel Rodriguez MD at 11:59 EDT , Physical Exam Const oriented x3 and no apparent distress Resp normal respiratory effort GI soft to palpation and non-tender Assessment & Plan Assessment/Plan (1) Calculous cholecystitis with obstruction: PLAN: The patient's drain was empty before I was able to see the drainage. Continue percutaneous drain on home-going. Patient may be discharged today on 5 more days of oral antibiotics. He should follow-up with Dr. Palumbo to discuss when to remove the drain. Elias Bee MD Pager: [facility] [address] [place] [address], [address] [place] [address] Office:
[2022-12-17 07:37] LABS: Anion Gap 7 (5-15); BUN 46 mg/dL (7-18); BUN/Creat Ratio 30.1 RATIO (10-20); Chloride 113 mmol/L (98-107); Creatinine, Serum 1.53 mg/dL (0.70-1.30); EST Glomerular Filtration Rate 47 mL/min (>60); Est Glom Filt Rate - Afr Amer 56 mL/min (>60); Estimated Creatinine Clearance 34.17 ml/min; Glucose 178 mg/dL (74-106); Potassium 3.8 mmol/L (3.5-5.1); Sodium Level 141 mmol/L (136-145)
--- NOTE | 2022-12-17 07:45 | PN.HOSP_ITS ---
Reason for Visit Reason for Visit: Diagnoses Calculus of gallbladder with acute cholecystitis with obstruction (12/14/22) Calculus of bile duct without cholangitis or cholecystitis without obstruction (12/14/22) Other specified disorders of kidney and ureter (12/14/22) Subjective Subjective Feels well. No abdominal pain. Tolerating PO. Objective Data Objective Data Vital Signs: Vital Signs Temp Pulse Resp BP Pulse Ox O2 Del Method O2 Flow Rate 36.6 C 51 L 18 115/55 L 95 Nasal Cannula 2 12/17/22 02:15 12/17/22 07:03 12/17/22 07:03 12/17/22 02:15 12/17/22 07:03 12/17/22 07:03 12/17/22 07:03 FiO2 4 12/15/22 20:05 Oxygen Flow Rate (L/min) [6] 3 Oxygen Flow Rate (L/min) [5] 3 Oxygen Flow Rate (L/min) [4] 3 Oxygen Flow Rate (L/min) [3] 3 Oxygen Flow Rate (L/min) [2] 3 Oxygen Flow Rate (L/min) [1 ( 3 Initial Baseline)] Oxygen Flow Rate (L/min) 2 Oxygen Delivery Method [6] Nasal Cannula Oxygen Delivery Method [5] Nasal Cannula Oxygen Delivery Method [4] Nasal Cannula Oxygen Delivery Method [3] Nasal Cannula Oxygen Delivery Method [2] Nasal Cannula Oxygen Delivery Method [1 ( Nasal Cannula Initial Baseline)] Oxygen Delivery Method Nasal Cannula Weight: 92.2 kg Body Mass Index (BMI) 32.6 Intake & Output: Intake and Output for Last 24 Hours 12/15/22 12/16/22 12/17/22 23:59 23:59 23:59 Intake Total 2360 / 2560 3321.67 / 3321.67 1050 / 1050 Output Total 475 / 575 835 / 835 300 / 300 Balance 1884 / 1985 2486.67 / 2486.67 750 / 750 Lab / Micro Data 12/17/22 06:14 12/17/22 06:14 Labs: Laboratory Results - last 24 hr 12/14/22 07:00: POC Glucose 138 H 12/14/22 13:50: POC Glucose 141 H 12/16/22 11:57: POC Glucose 184 H 12/16/22 16:51: POC Glucose 169 H 12/16/22 21:19: POC Glucose 238 H 12/17/22 06:14: WBC 10.2, RBC 3.91 L, Hgb 11.1 L, Hct 34.3 L, MCV 87.7, MCH 28.4, MCHC 32.4, RDW Std Deviation 47.4 H, RDW Coeff of Sheri 14.7 H, Plt Count 248, MPV 11.4, Immature Gran % (Auto) 1.900 H, Neut % (Auto) 80.2 H, Lymph % (Auto) 8.4 L, Mathews % (Auto) 9.2, Eos % (Auto) 0.2, Baso % (Auto) 0.1, Absolute Neuts (auto) 8.2 H, Absolute Lymphs (auto) 0.86, Nucleated RBC % 0, Sodium 141, Potassium 3.8, Chloride 113 H, Carbon Dioxide 21.0, Anion Gap 7, BUN 46 H, Creatinine 1.53 H, Estim Creat Clear Calc 34.17, Est GFR (MDRD) Af Amer 56 L, Est GFR (MDRD) Non-Af 47 L, BUN/Creatinine Ratio 30.1 H, Glucose 178 H, Calcium 8.0 L 12/17/22 06:18: POC Glucose 173 H Radiography Diagnostic Testing: Radiology Impression Renal Ultrasound 12/16/22 09:26 IMPRESSION: 4.5 cm x 3.8 cm x 3.8 cm complex heterogeneous solid mass in the left kidney with calcifications. A neoplastic process should be ruled out. Electronically Signed: Daniel Rodriguez MD at 14:41 EDT , Biopsy CT 12/16/22 10:00 IMPRESSION: Successful percutaneous cholecystostomy with 8 Italian catheter. 100 cc of dark. Material was aspirated. The patient tolerated the procedure well. Conscious sedation protocol was followed. Electronically Signed: Daniel Rodriguez MD at 11:59 EDT , Physical Exam Const alert and no apparent distress HEENT head/scalp atraumatic and moist oral mucous membranes Resp normal respiratory effort, no retractions, no use of accessory muscles and clear to auscultation bilaterally Cardio regular rate, regular rhythm, S1 normal heart sound and S2 normal heart sound GI normal to inspection, nondistended, normoactive bowel sounds, soft to palpation, non-tender and non-distended GI Narrative: BLANQUITA drain with bilious fluid. Assessment & Plan Assessment/Plan (1) Choledocholithiasis: PLAN: With cholecystitis On pip/tazo NPO IVF ERCP on 12/15: removal by biliary sphincterotomy and balloon extraction. Stent placed. (2) Calculous cholecystitis with obstruction: PLAN: GS, DW Dr. Palumbo on 12/14. Feels patient is a high risk of complications with surgery. He recommends cholecystotomy tube pip/tazo Perc irma tube placed 12/16. Cx pending Follow up with general surgery as outpt (3) Renal mass: PLAN: noted on CT from OSH L kidney mass 3.2 x 3 x 3.5 cm. Concerning for RCC. 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 No coverage over the weekend. NSQIP calculator shows for a nephrectomy shows pt is: * 30-40% risk for serious complication, any complication; * 20-30% risk for readmission * 10-20% risk for , sepsis, renal failure; * <10% risk for pneumonia, VTE, cardiac complication, surgical site infection, UTI, return to OR. Discussed with patient about mass, concern for malignancy, his very high risk for surgical complications, that he is not a candidate for chemotherapy at this time given above. Recommended follow up with urology as outpt. Outpt biopsy w med onc follow up versus palliation. PLAN: Plan Chronic conditions: * h/o GCA: completed steroids. Follow up w rheum as outpt * PAD: h/o carotid stenosis w/ h/o CEA. Hold ASA. Follow up with vascular surgery (Dr. Weinstein) * DM2: insulin-dependent. continue glargine and SSI * CKD IIIb: improved from 2020. monitor * HTN: continue carvedilol * HLP: statin held given choledocholithiasis * hypothyroidism: continue levothyroxine * pafib: continue amiodarone. apixaban held given pending intervention * chronic right vision loss: f/u w ophtho * CAD: s/p CABG. hold ASA. Continue carvedilol * COPD w chronic resp failure: stable. * Dementia: caution with medication. * Anxiety/depression: continue citalopram. VTE prophylaxis: SCDs Code Status: DNRCCA, no intubation.
[2022-12-17 08:00] VITALS: PULSE 54; RESP 18; O2SAT 96
--- NOTE | 2022-12-17 09:15 | TREXTCAR_ITS ---
Diet Diet Order/Speech Therapy: 12/16/22 14:07 Diet: Cardiac: Calorie-Controlled Is pt able to select menu?: No How many daily calories?: 1999 calorie Routine Orders/Code Status Code Status: DNRCC-A (no intubation) Wound(s) Scratch Right Hip: Wound Type: scratch Right Buttock: Wound Type: Skin Tear Dressing Change: Mepilex right abd quadrant: Wound Type: Puncture Therapies Extremity Affected:: Bilateral Lower Physical Therapy: Eval and Treat Occupational Therapy: Eval and Treat Problem/Diagnosis (1) Choledocholithiasis: Status: Acute Code(s): K80.50 - Calculus of bile duct without cholangitis or cholecystitis without obstruction Plan: With cholecystitis On pip/tazo NPO IVF ERCP on 12/15: removal by biliary sphincterotomy and balloon extraction. Stent placed. (2) Calculous cholecystitis with obstruction: Status: Acute Code(s): K80.01 - Calculus of gallbladder with acute cholecystitis with obstruction Plan: GS, DW Dr. Palumbo on 12/14. Feels patient is a high risk of complications with surgery. He recommends cholecystotomy tube pip/tazo Perc irma tube placed 12/16. Cx pending Follow up with general surgery as outpt (3) Renal mass: Status: Acute Code(s): N28.89 - Other specified disorders of kidney and ureter Plan: noted on CT from OSH L kidney mass 3.2 x 3 x 3.5 cm. Concerning for RCC. 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 No coverage over the weekend. NSQIP calculator shows for a nephrectomy shows pt is: * 30-40% risk for serious complication, any complication; * 20-30% risk for readmission * 10-20% risk for , sepsis, renal failure; * <10% risk for pneumonia, VTE, cardiac complication, surgical site infection, UTI, return to OR. Discussed with patient about mass, concern for malignancy, his very high risk for surgical complications, that he is not a candidate for chemotherapy at this time given above. Recommended follow up with urology as outpt. Outpt biopsy w med onc follow up versus palliation. Plan Chronic conditions: * h/o GCA: completed steroids. Follow up w rheum as outpt * PAD: h/o carotid stenosis w/ h/o CEA. Hold ASA. Follow up with vascular surgery (Dr. Weinstein) * DM2: insulin-dependent. continue glargine and SSI * CKD IIIb: improved from 2020. monitor * HTN: continue carvedilol * HLP: statin held given choledocholithiasis * hypothyroidism: continue levothyroxine * pafib: continue amiodarone. apixaban held given pending intervention * chronic right vision loss: f/u w ophtho * CAD: s/p CABG. hold ASA. Continue carvedilol * COPD w chronic resp failure: stable. * Dementia: caution with medication. * Anxiety/depression: continue citalopram. Code Status: DNRCCA, no intubation. Allergies/Procedures Done in Hospital Allergies No Known Allergies Allergy (Verified 05/16/22 09:20) Procedures: - (ERCP. cholecystotomy tube. ) Type of Care/Length of Stay Estimated LOS: More Than 30 Days Type of Care Needed: Long Term/Assisted Living Rehab Potential: Fair Prognosis: Fair Additional Orders/Day of Discharge Additional Orders: BLANQUITA drain to gravity. Empty daily and PRN. Day of Discharge: 12/17/22 Dietary and Speech Recommendations Dietitian Recommendations/Changes: Recommend advance PO as tolerated to 1800 calorie/consistent carbohydrate; cardiac diet. 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 Discharge Plan Admission Admit Date/Time: 12/14/22 15:04 Primary Reason for Your Visit: choledocholithiasis. cholecystitis. Attending Provider: Jesse Haywood Primary Care Provider: Dexter Reyes Chi Consulting Providers: Navneet Palumbo; Bren Lopes; Daniel Rodriguez Instructions Additional Instructions / Restrictions: Choledocholithiasis with cholelithiasis. ERCP extracted the biliary duct stone. Patient was a high-risk for surgical complications, so he did not undergo a cholecystectomy, but had a cholecystotomy tube placed. He will need to follow up with General Surgery (Dr. Palumbo) in order to have the tube removed. Incidentally, he was found to have a left kidney mass. He will need to follow up with urology to have that further evaluated. No biopsy performed in the hospital given his priority given to his primary issue. Patient is an extremely high risk for nephrectomy. Ideally, pt should be optimized from his biliary and gall bladder issues before undergoing kidney biopsy. Discharge Orders/Prescriptions Prescriptions: New amoxicillin-pot clavulanate 875-125 mg tablet 1 tab PO BID Qty: 8 0RF Continued amiodarone 200 mg tablet 200 mg PO DAILY levothyroxine 50 mcg tablet 50 mcg PO DAILY atorvastatin 40 mg tablet 40 mg PO DAILY omeprazole 40 mg capsule,delayed release(DR/EC) 40 mg PO DAILY Eliquis 2.5 mg tablet 2.5 mg PO DAILY carvedilol [Coreg] 3.125 mg tablet 3.125 mg PO BID Rx Instructions: must administer with a meal/food, Hold if SBP less than 100 or HR less than 55 cholecalciferol (vitamin D3) 25 MCG capsule 1,000 unit PO DAILY citalopram 10 MG tablet 10 mg PO DAILY insulin lispro 100 UNIT/ML insulin pen 10 unit SC TIDCM insulin glargine 100 UNITS/ML insulin pen 10 unit SC QHS aspirin 81 mg Tablet 81 mg PO DAILY Jardiance 10 mg tablet 25 mg PO DAILY polyethylene glycol 3350 [Miralax] 17 gram/dose Powder 17 g PO DAILY PRN (Reason: constipation) acetaminophen 325 mg capsule 650 mg PO Q4H PRN (Reason: pain) multivitamin Tablet 1 tab PO DAILY Referrals / Follow Up: David Garcia MD [Med Staff - Active Staff] - Within 2 Weeks Navneet Palumbo MD [Med Staff - Active Staff] - Within 2 Weeks Dexter Reyes Chi, MD [Primary Care Provider] - Within 2 Weeks Disposition Disposition (needs filled in before D/C Order can be placed): NonSkilled NH/Intermed Care
--- NOTE | 2022-12-17 09:33 | DS.PCM_ITS ---
Providers Date of Admission: 12/14/22 Primary Care Physician: Dr. Dexter Reyes MD Consultations 12/14/22 01:53 Consult: Gastroenterology Routine Consulting Provider: [facility] Reason for Consult: choledocholithiasis EMERGENT Consult: No Notified: Yes Date Notified: 12/14/22 Time Notified: 01:54 Method of Notification: Verbal Consult: General Surgery Routine Consulting Provider: Navneet Palumbo Reason for Consult: Choledocholithiasis EMERGENT Consult: No Notified: Yes Date Notified: 12/14/22 Time Notified: 01:54 Method of Notification: Verbal 12/14/22 07:49 Consult: Onc/Wound/marketing production manager Routine Comment: 12/15/22 09:17 Consult: Interventional Radiology Routine Consulting Provider: Daniel Rodriguez Reason for Consult: cholecystotomy tube placement EMERGENT Consult: No Notified: Yes Date Notified: 12/16/22 Time Notified: 07:53 Method of Notification: Answering Service Reason For Visit: ACUTE CHOLEDONCHLITHIASIS/?CHOLECYSTITIS Diagnosis Discharge Diagnosis (1) Choledocholithiasis: Status: Acute Code(s): K80.50 - Calculus of bile duct without cholangitis or cholecystitis without obstruction Plan: With cholecystitis On pip/tazo NPO IVF ERCP on 12/15: removal by biliary sphincterotomy and balloon extraction. Stent placed. (2) Calculous cholecystitis with obstruction: Status: Acute Code(s): K80.01 - Calculus of gallbladder with acute cholecystitis with obstruction Plan: GS, DW Dr. Palumbo on 12/14. Feels patient is a high risk of complications with surgery. He recommends cholecystotomy tube pip/tazo Perc irma tube placed 12/16. Cx pending Follow up with general surgery as outpt (3) Renal mass: Status: Acute Code(s): N28.89 - Other specified disorders of kidney and ureter Plan: noted on CT from OSH L kidney mass 3.2 x 3 x 3.5 cm. Concerning for RCC. 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 No coverage over the weekend. NSQIP calculator shows for a nephrectomy shows pt is: * 30-40% risk for serious complication, any complication; * 20-30% risk for readmission * 10-20% risk for , sepsis, renal failure; * <10% risk for pneumonia, VTE, cardiac complication, surgical site infection, UTI, return to OR. Discussed with patient about mass, concern for malignancy, his very high risk for surgical complications, that he is not a candidate for chemotherapy at this time given above. Recommended follow up with urology as outpt. Outpt biopsy w med onc follow up versus palliation. Plan Chronic conditions: * h/o GCA: completed steroids. Follow up w rheum as outpt * PAD: h/o carotid stenosis w/ h/o CEA. Hold ASA. Follow up with vascular [facility] (Dr. Weinstein) * DM2: insulin-dependent. continue glargine and SSI * CKD IIIb: improved from 2020. monitor * HTN: continue carvedilol * HLP: statin held given choledocholithiasis * hypothyroidism: continue levothyroxine * pafib: continue amiodarone. apixaban held given pending intervention * chronic right vision loss: f/u w ophtho * CAD: s/p CABG. hold ASA. Continue carvedilol * COPD w chronic resp failure: stable. * Dementia: caution with medication. * Anxiety/depression: continue citalopram. Code Status: DNRCCA, no intubation. Medications at Discharge Home Medications cholecalciferol (vitamin D3) 25 mcg (1,000 unit) capsule 1,000 unit PO DAILY SUPPLEMENT 05/18/20 citalopram 10 mg tablet 10 mg PO DAILY DEPRESSION 05/18/20 insulin glargine 100 unit/mL (3 mL) subcutaneous pen 10 unit subcut QHS DM 05/18/20 insulin lispro 100 unit/mL subcutaneous pen 10 unit subcut TIDCM DM 05/18/20 aspirin 81 mg tablet 81 mg PO DAILY 05/17/21 amiodarone 200 mg tablet 200 mg PO DAILY 09/01/21 levothyroxine 50 mcg tablet 50 mcg PO DAILY 09/01/21 apixaban 2.5 mg tablet (Eliquis) 2.5 mg PO DAILY 03/03/22 atorvastatin 40 mg tablet 40 mg PO DAILY 03/03/22 omeprazole 40 mg capsule,delayed release 40 mg PO DAILY 03/03/22 carvedilol 3.125 mg tablet (Coreg) 3.125 mg PO BID 05/16/22 acetaminophen 325 mg capsule 650 mg PO Q4H PRN pain 12/14/22 empagliflozin 10 mg tablet (Jardiance) 25 mg PO DAILY 12/14/22 multivitamin 1 tab PO DAILY 12/14/22 polyethylene glycol 3350 17 gram/dose oral powder (Miralax) 17 g PO DAILY PRN constipation 12/14/22 amoxicillin 875 mg-potassium clavulanate 125 mg tablet 1 tab PO BID #8 tabs 12/17/22 Hospital Course Operations None Procedures - (ERCP, cholecystotomy tube) Summary of Care Provided Minutes Spent on Discharge: 45 Weight / BMI Weight Weight: 92.2 kg Body Mass Index (BMI) 32.6 ABG / Lab / Microbiology Data 12/17/22 06:14 12/17/22 06:14 Laboratory: Laboratory Results - last 24 hr 12/14/22 07:00: POC Glucose 138 H 12/14/22 13:50: POC Glucose 141 H 12/16/22 11:57: POC Glucose 184 H 12/16/22 16:51: POC Glucose 169 H 12/16/22 21:19: POC Glucose 238 H 12/17/22 06:14: WBC 10.2, RBC 3.91 L, Hgb 11.1 L, Hct 34.3 L, MCV 87.7, MCH 28.4, MCHC 32.4, RDW Std Deviation 47.4 H, RDW Coeff of Sheri 14.7 H, Plt Count 248, MPV 11.4, Immature Gran % (Auto) 1.900 H, Neut % (Auto) 80.2 H, Lymph % (Auto) 8.4 L, Cassia % (Auto) 9.2, Eos % (Auto) 0.2, Baso % (Auto) 0.1, Absolute Neuts (auto) 8.2 H, Absolute Lymphs (auto) 0.86, Nucleated RBC % 0, Sodium 141, Potassium 3.8, Chloride 113 H, Carbon Dioxide 21.0, Anion Gap 7, BUN 46 H, Creatinine 1.53 H, Estim Creat Clear Calc 34.17, Est GFR (MDRD) Af Amer 56 L, Est GFR (MDRD) Non-Af 47 L, BUN/Creatinine Ratio 30.1 H, Glucose 178 H, Calcium 8.0 L 12/17/22 06:18: POC Glucose 173 H Microbiology: Microbiology 12/16/22 12:00 Aspirate - Other Gram Stain - Final Radiography Diagnostic Testing: Radiology Impression Renal Ultrasound 12/16/22 09:26 IMPRESSION: 4.5 cm x 3.8 cm x 3.8 cm complex heterogeneous solid mass in the left kidney with calcifications. A neoplastic process should be ruled out. Electronically Signed: Daniel Rodriguez MD at 14:41 EDT , Biopsy CT 12/16/22 10:00 IMPRESSION: Successful percutaneous cholecystostomy with 8 Yoruba catheter. 100 cc of dark. Material was aspirated. The patient tolerated the procedure well. Conscious sedation protocol was followed. Electronically Signed: Daniel Rodriguez MD at 11:59 EDT , Meaningful Use Info Meaningful Use Diagnoses (Choose all that apply): None applicable Discharge Plan Admission Admit Date/Time: 12/14/22 15:04 Primary Reason for Your Visit: choledocholithiasis. cholecystitis. Attending Provider: Jesse Haywood Primary Care Provider: Dexter Reyes Chi Consulting Providers: Navneet Palumbo; Bren Lopes; Daniel Rodriguez Instructions Additional Instructions / Restrictions: Choledocholithiasis with cholelithiasis. ERCP extracted the biliary duct stone. Patient was a high-risk for surgical complications, so he did not undergo a cholecystectomy, but had a cholecystotomy tube placed. He will need to follow up with General Surgery (Dr. Palumbo) in order to have the tube removed. Incidentally, he was found to have a left kidney mass. He will need to follow up with urology to have that further evaluated. No biopsy performed in the hospital given his priority given to his primary issue. Patient is an extremely high risk for nephrectomy. Ideally, pt should be optimized from his biliary and gall bladder issues before undergoing kidney biopsy. Discharge Orders/Prescriptions Prescriptions: New amoxicillin-pot clavulanate 875-125 mg tablet 1 tab PO BID Qty: 8 0RF Continued amiodarone 200 mg tablet 200 mg PO DAILY levothyroxine 50 mcg tablet 50 mcg PO DAILY atorvastatin 40 mg tablet 40 mg PO DAILY omeprazole 40 mg capsule,delayed release(DR/EC) 40 mg PO DAILY Eliquis 2.5 mg tablet 2.5 mg PO DAILY carvedilol [Coreg] 3.125 mg tablet 3.125 mg PO BID Rx Instructions: must administer with a meal/food, Hold if SBP less than 100 or HR less than 55 cholecalciferol (vitamin D3) 25 MCG capsule 1,000 unit PO DAILY citalopram 10 MG tablet 10 mg PO DAILY insulin lispro 100 UNIT/ML insulin pen 10 unit SC TIDCM insulin glargine 100 UNITS/ML insulin pen 10 unit SC QHS aspirin 81 mg Tablet 81 mg PO DAILY Jardiance 10 mg tablet 25 mg PO DAILY polyethylene glycol 3350 [Miralax] 17 gram/dose Powder 17 g PO DAILY PRN (Reason: constipation) acetaminophen 325 mg capsule 650 mg PO Q4H PRN (Reason: pain) multivitamin Tablet 1 tab PO DAILY Referrals / Follow Up: David Garcia MD [Med Staff - Active Staff] - Within 2 Weeks Navneet Palumbo MD [Med Staff - Active Staff] - Within 2 Weeks Dexter Reyes Chi, MD [Primary Care Provider] - Within 2 Weeks Disposition Disposition (needs filled in before D/C Order can be placed): NonSkilled NH/Intermed Care Charges/Coding Visit Charges Inpatient E&M: 73096 Disch Hosp >30min
[2022-12-17] MEDS: Amiodarone 200 MG Tablet PO (10:48)
[2022-12-17] MEDS: Citalopram 10 MG Tablet PO (10:48)
[2022-12-17] MEDS: Carvedilol 3.125 MG TABLET PO (10:48)
[2022-12-17] MEDS: Polyethylene Glycol 3350 17 GM PACKET PO (10:48)
[2022-12-17 11:50] LABS: Bedside Glucose 216 mg/dL (74-106)
[2022-12-17 12:00] VITALS: BP 147/68; PULSE 60; RESP 18; TEMP 37.1; O2SAT 95
--- NOTE | 2022-12-17 12:06 | NURSING ---
report called to crissy Mixon
== END 2022-12-17 12:27 | disposition skilled nursing facility (03) | DRG 445 ==
PROVIDERS: Anesthesiology; Internal Medicine Gastroenterology; Admitting Provider Family Medicine; PCP Family Medicine Geriatric Medicine
PROC: 0FC98ZZ Extirpation of Matter from Common Bile Duct, Via Natural or Artificial Opening Endoscopic (ICD-10-PCS; CPT 43260; principal; 2022-12-15 13:00)
DX: K80.63 Calculus of gallbladder and bile duct with acute cholecystitis with obstruction (principal); J96.11 Chronic respiratory failure with hypoxia; M31.6 Other giant cell arteritis; E11.22 Type 2 diabetes mellitus with diabetic chronic kidney disease; F03.90 Unspecified dementia, unspecified severity, without behavioral disturbance, psychotic disturbance, mood disturbance, and anxiety; N18.32 Chronic kidney disease, stage 3b; J44.9 Chronic obstructive pulmonary disease, unspecified; Z79.4 Long term (current) use of insulin; I48.0 Paroxysmal atrial fibrillation; E11.51 Type 2 diabetes mellitus with diabetic peripheral angiopathy without gangrene; Z89.511 Acquired absence of right leg below knee; Z89.512 Acquired absence of left leg below knee; E78.5 Hyperlipidemia, unspecified; I25.10 Atherosclerotic heart disease of native coronary artery without angina pectoris; E03.9 Hypothyroidism, unspecified; I12.9 Hypertensive chronic kidney disease with stage 1 through stage 4 chronic kidney disease, or unspecified chronic kidney disease; F32.A Depression, unspecified; F41.9 Anxiety disorder, unspecified; G47.33 Obstructive sleep apnea (adult) (pediatric); S31.819A Unspecified open wound of right buttock, initial encounter; X58.XXXA Exposure to other specified factors, initial encounter; N28.89 Other specified disorders of kidney and ureter; E66.9 Obesity, unspecified; Z68.32 Body mass index [BMI] 32.0-32.9, adult; Z99.81 Dependence on supplemental oxygen; Z66 Do not resuscitate; Z95.1 Presence of aortocoronary bypass graft; Z91.89 Other specified personal risk factors, not elsewhere classified; Z91.199 Patient's noncompliance with other medical treatment and regimen due to unspecified reason; Z79.01 Long term (current) use of anticoagulants; Z79.82 Long term (current) use of aspirin; Z79.84 Long term (current) use of oral hypoglycemic drugs; Z79.899 Other long term (current) drug therapy; Z87.891 Personal history of nicotine dependence
CPT/HCPCS: 36415; 71045; 74330; 76000; 76705; 76770; 77012; 80048; 80053; 82962; 83036; 84443; 85025; 85610; 85730; 87070; 87075; 87077; 87186; 87205; 93005; 94640; 94668; 94762; 97110; 97162; 97166; 97802; 99156; J7030; J7050; A4216

== ENCOUNTER → 2023-01-30 | Outpatient (CLI) | payer MEDICARE, MEDICAID, SELFPAY ==
--- NOTE | 2023-01-30 08:55 | RAD_ITS ---
STUDY: CHOLANGIOGRAM THROUGH INDWELLING PERCUTANEOUS CHOLECYSTOSTOMY TUBE. REASON FOR EXAM: Male, 82 years old. Cholelithiasis -- irma tube injection( and lt;1 hr) cholangiogram FLUOROSCOPY TIME (if supplied): ( 52 seconds ) minutes/seconds. 30.75 mGy. 5 images were obtained. TECHNIQUE: Isovue 300 was injected through the indwelling percutaneous cholecystostomy tube. Imaging was obtained. COMPARISON: None. FINDINGS: A stent is seen within the common bile duct. Contrast was injected. The gallbladder is visualized. The cystic duct is patent. There is evidence of obstruction in the distal portion of the common bile duct. Contrast is seen within the duodenum. Dilated left intrahepatic biliary ducts. RAD/Cholangiogram/ O R,Initial IMPRESSION: Patency of the percutaneous cholecystostomy tube as well as the common bile duct stent. Narrowing of the distal common bile duct with dilatation of intrahepatic biliary ducts. Electronically Signed: Daniel Rodriguez MD at 10:46 EDT ,
== END | disposition home or self-care (01) ==
LOC: RAD 08:40
PROVIDERS: PCP Family Medicine Geriatric Medicine; Referring Provider Surgery; Visit Provider Surgery
DX: K80.19 Calculus of gallbladder with other cholecystitis with obstruction (principal)
CPT/HCPCS: 74300; 74330; Q9967

== ENCOUNTER → 2023-02-08 | Outpatient (CLI) | payer MEDICARE, MEDICAID, SELFPAY ==
[2023-02-08 09:44] LABS: Absolute Lymphocyte Count 1.91 X10^3/uL (0.83-4.51); Basophil# 0.02 X10^3/uL; Basophil% 0.2 % (0-1); Eosinophil# 0.28 X10^3/uL; Eosinophils% 2.7 % (0-5); Hematocrit 40.2 % (40-54); Hemoglobin 12.7 g/dL (13.0-16.5); Lymphocyte # 1.91 X10^3/ul (0.83-4.51); Lymphocyte % 18.2 % (19-41); Mean Corp Hgb Conc 31.6 g/dL (32-36); Mean Corpuscular Hgb 27.4 pg (27.0-32.0); Mean Corpuscular Volume 86.6 fL (80-94); Mean Platelet Vol. 10.7 fl (6.2-12.0); Monocyte# 1.17 X10^3/uL; Monocyte% 11.2 % (0-10); NRBC Flagged by Analyzer 0 % (0-5); Neutrophil # 6.97 X10^3/uL (2.7-7.7); Neutrophil % 66.4 % (47-70); Platelet Count 275 K/mm3 (150-450); RBC Distribution Width CV 16.1 % (11.6-14.6); RBC Distribution Width SD 50.7 fl (35.1-43.9); Red Blood Count 4.64 M/mm3 (4.6-6.2); White Blood Count 10.5 K/mm3 (4.4-11.0)
[2023-02-08 10:17] LABS: ALB/GLOB Ratio 0.7 RATIO (0.9-2.4); AST(SGOT) 30 U/L (15-37); Alanine Aminotransfer ALT/SGPT 42 U/L (16-61); Albumin, Serum 3.4 g/dL (3.2-5.0); Alkaline Phosphatase 122 U/L (45-117); Anion Gap 9 (5-15); BUN 47 mg/dL (7-18); BUN/Creat Ratio 25.7 RATIO (10-20); Calcium,Total 9.4 mg/dL (8.5-10.1); Chloride 105 mmol/L (98-107); Creatinine, Serum 1.83 mg/dL (0.70-1.30); EST Glomerular Filtration Rate 38 mL/min (>60); Est Glom Filt Rate - Afr Amer 46 mL/min (>60); Globulin 4.6 g/dL (2.2-4.2); Glucose 191 mg/dL (74-106); Potassium 4.1 mmol/L (3.5-5.1); Sodium Level 137 mmol/L (136-145)
== END | disposition home or self-care (01) ==
LOC: LAB 09:28
PROVIDERS: PCP Internal Medicine; Referring Provider Surgery; Visit Provider Surgery
DX: K80.19 Calculus of gallbladder with other cholecystitis with obstruction (principal); E78.5 Hyperlipidemia, unspecified
CPT/HCPCS: 36415; 80053; 85025

== ENCOUNTER 2023-06-06 09:41 | Day surgery (SDC) | payer MEDICARE, MEDICAID, SELFPAY ==
[2023-06-06] VITALS (16 sets, daily range): BP systolic 68–136; BP diastolic 39–67; PULSE 51–64; RESP 12–18; TEMP 36.2–36.6; O2SAT 92–100; BMI 26.1
[2023-06-06] MEDS: Lactated Ringers 1,000 ML 15 ML IV ×2 (10:40→13:35)
--- NOTE | 2023-06-06 11:00 | RAD_ITS ---
STUDY: ERCP. REASON FOR EXAM: Male, 82 years old. ERCP WITH STENT REMOVAL FLUOROSCOPY TIME (if supplied): ( 2 minutes and 16 seconds ) minutes/seconds. 36.25 mGy. 16 images were obtained. TECHNIQUE: ERCP was performed by the utilization management um nurse. Fluoroscopic services were provided. COMPARISON: None. FINDINGS: Removal of the common bile duct stent. RAD/ERCP Biliary/Pancreas IMPRESSION: Removal of the common bile duct stent. Electronically Signed: Daniel Rodriguez MD at 14:14 EST ,
[2023-06-06 11:18] LABS: Bedside Glucose 134 mg/dL (74-106)
--- NOTE | 2023-06-06 11:39 | EKG12_ITS ---
Test Reason : PREOP Blood Pressure : / mmHG Vent. Rate : 059 BPM Atrial Rate : 059 BPM P-R Int : 192 ms QRS Dur : 106 ms QT Int : 512 ms P-R-T Axes : -07 085 045 degrees QTc Int : 506 ms Sinus bradycardia Otherwise normal ECG When compared with ECG of 15-DEC-2022 05:54, ST elevation now present in Inferior leads Confirmed by CHIO LATHAM, SYLVESTER ([id number]), research editor RENATO BURGOS ([id number]) on 06/09/2023 5:52:15 AM Referred By: Diana Salmeron Confirmed By:SYLVESTER BARROSO MD
--- NOTE | 2023-06-06 11:47 | HP.PCM_ITS ---
History and Physical Date of Admission: 06/06/23 82-year-old gentleman with coronary artery disease comes in for follow-up visit and ERCP with removal of stent. Chest milligram approximately 5 months ago when he presented to the ER with abdominal pain and jaundice. Imaging was consistent with choledocholithiasis and biliary stricture. He underwent elective cholecystectomy has been doing very well. He still has the stents in 5 months ago. He is coming in for follow-up visit. Assessment & Plan Assessment/Plan (1) Choledocholithiasis: PLAN: With cholecystitis On pip/tazo NPO IVF ERCP on 12/15: removal by biliary sphincterotomy and balloon extraction. Stent placed. (2) Calculous cholecystitis with obstruction: PLAN: GS, DW Dr. Palumbo on 12/14. Feels patient is a high risk of complications with surgery. He recommends cholecystotomy tube pip/tazo Perc irma tube placed 12/16. Cx pending Follow up with general surgery as outpt (3) Renal mass: PLAN: noted on CT from OSH L kidney mass 3.2 x 3 x 3.5 cm. Concerning for RCC. 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 No coverage over the weekend. NSQIP calculator shows for a nephrectomy shows pt is: * 30-40% risk for serious complication, any complication; * 20-30% risk for readmission * 10-20% risk for , sepsis, renal failure; * <10% risk for pneumonia, VTE, cardiac complication, surgical site infection, UTI, return to OR. Discussed with patient about mass, concern for malignancy, his very high risk for surgical complications, that he is not a candidate for chemotherapy at this time given above. Recommended follow up with urology as outpt. Outpt biopsy w med onc follow up versus palliation. PLAN: Plan Chronic conditions: * h/o GCA: completed steroids. Follow up w rheum as outpt * PAD: h/o carotid stenosis w/ h/o CEA. Hold ASA. Follow up with vascular surgery (Dr. Weinstein) * DM2: insulin-dependent. continue glargine and SSI * CKD IIIb: improved from 2020. monitor * HTN: continue carvedilol * HLP: statin held given choledocholithiasis * hypothyroidism: continue levothyroxine * pafib: continue amiodarone. apixaban held given pending intervention * chronic right vision loss: f/u w ophtho * CAD: s/p CABG. hold ASA. Continue carvedilol * COPD w chronic resp failure: stable. * Dementia: caution with medication. * Anxiety/depression: continue citalopram. VTE prophylaxis: SCDs Code Status: DNRCCA, no intubation. Charges/Coding Visit Charges Inpatient E&M: 86992 Init Hosp L3
--- NOTE | 2023-06-06 12:00 | FLU_PTH ---
PATIENT: LEIZABETH MODI LOC: EN U#:[id number] AGE/SX: 82/M ROOM: RE06/06/[address]: Dr. Sohail Owen DO : 1940 BED: DIS: 06/06/2023 SPEC #: [id number] RECD: 06/06/23 13:09 STATUS: JOHANNA BRADFORD #: [id number] YARELY: 06/06/23 12:[address]: Sohail Owen DEPT: CYTOLOGY RECD BY: Ailyn Levy ENTERED: 06/06/23 13:29 SP TYPE: Fluid OTHR DR: Dr. Diana Salmeron MD Tissues: A - Bile duct, NOS B - Bile duct, NOS C - Bile duct, NOS Procedures: Special Stain Group II Surgery Specimen Level IV Cytospin Fluid Cytology Other HEADER OPERATION: ERCP with stent removal, balloon sweep and brushings PRE-OP DIAGNOSIS: Cholelithiasis and cholecystitis with obstruction TISSUE SUBMITTED: A - Biliary stent fluid for cytology, B - [place] tip of distal common bile duct stricture, C - Brushings of distal common bile duct stricture x4 smears DIAGNOSIS CYTOLOGY A. Fluid from biliary stent (cytospin and cell block): Negative for malignant cells. B. [place] tip (cytospin and cell block): Negative for malignant cells. C. Distal common bile duct brushings (smears): Negative for malignant cells. AM:shashank 06/07/2023 CYTOLOGY STUDY Slides are reviewed. CYTOLOGY GROSS A - Received is 30 ml of yellow cloudy fluid labeled with the patient's name and and designated per the requisition as biliary stent. Submitted for cytology preparation including cell block. B - Received is 1 ml of yellow cloudy fluid labeled with the patient's name and and designated per the requisition as brush tip of distal common bile duct stricture. Submitted for cytology preparation including cell block. C - Received are four smears labeled with the patient's name and designated per the requisition as brushings of distal common bile duct stricture. Submitted for staining. / shashank 06/06/2023 TC:5 CPT: 29662 x2, 16961, 48670 x2
--- NOTE | 2023-06-06 12:02 | HP.PCM_ITS ---
HPI - General General Date of Admission: 06/06/23 Date of Service: 06/06/23 Chief Complaint: stent removal HPI Narrative ELIZABETH MODI, is a 82 M who presents 82-year-old gentleman with coronary artery disease comes in for follow-up visit and ERCP with removal of stent. Approximately 5 months ago when he presented to the ER with abdominal pain and jaundice. Imaging was consistent with choledocholithiasis and biliary stricture. He underwent elective cholecystectomy has been doing very well. He still has the stents in from 5 months ago. [facility] Medical History (Updated 06/06/23 @ 12:[address] Sauceda Friend, DO) Atherosclerotic heart disease of [place] coronary artery without angina pectoris CAD (coronary artery disease) Cardiology follow-up encounter COPD (chronic obstructive pulmonary disease) Diabetes mellitus type 2, uncontrolled Edentulous Essential hypertension Giant cell arteritis High cholesterol History of atrial fibrillation History of CHF (congestive heart failure) History of echocardiogram History of heart attack History of renal disease History of stress test Hypertension Hypothyroidism Insulin dependent diabetes mellitus Loss of hearing Non-smoker Obesity Paroxysmal atrial fibrillation Peripheral vascular occlusive disease Renal mass, left Sleep apnea Thyroid disease Tinea unguium Tobacco dependence in remission Vitamin D deficiency Wears dentures Wears glasses Home Medications cholecalciferol (vitamin D3) 25 mcg (1,000 unit) capsule 1,000 unit PO DAILY SUPPLEMENT 05/18/20 [History Last Taken 06/05/23] citalopram 10 mg tablet 10 mg PO DAILY DEPRESSION 05/18/20 [History Last Taken 06/06/23] aspirin 81 mg tablet 81 mg PO DAILY 05/17/21 [History Last Taken 06/06/23] amiodarone 200 mg tablet 200 mg PO DAILY 09/01/21 [History Last Taken 06/06/23] levothyroxine 50 mcg tablet 50 mcg PO DAILY 09/01/21 [History Last Taken 06/06/23] apixaban 2.5 mg tablet (Eliquis) 2.5 mg PO DAILY 03/03/22 [History Last Taken 06/03/23] atorvastatin 40 mg tablet 40 mg PO DAILY 03/03/22 [History Last Taken 06/05/23] carvedilol 3.125 mg tablet (Coreg) 3.125 mg PO BID 05/16/22 [History Last Taken 06/06/23] acetaminophen 325 mg capsule 650 mg PO Q4H PRN pain 12/14/22 [History Last Taken Unknown] empagliflozin 10 mg tablet (Jardiance) 25 mg PO DAILY 12/14/22 [History Last Taken 06/05/23] multivitamin 1 tab PO DAILY 12/14/22 [History Last Taken Unknown] polyethylene glycol 3350 17 gram/dose oral powder (Miralax) 17 g PO DAILY PRN constipation 12/14/22 [History Last Taken Unknown] glipizide 2.5 mg tablet, extended release 24 hr 5 mg PO DAILY 01/11/23 [History Last Taken 06/05/23] pantoprazole 40 mg tablet,delayed release 40 mg PO DAILY 01/11/23 [History Last Taken 06/06/23] sacubitril 24 mg-valsartan 26 mg tablet (Entresto) 1 tab PO BID 01/11/23 [History Last Taken 06/06/23] insulin aspart U-100 100 unit/mL (3 mL) subcutaneous pen (Novolog FlexPen U-100 Insulin aspart) 1 sliding scale dose subcut USEASDIRECTD 02/15/23 [History Last Taken Unknown] ketorolac 0.5 % eye drops 1 drp ophthalmic (eye) .4XDAY 05/25/23 [History Last Taken 06/05/23] miconazole nitrate 2 % topical powder (Antifungal (miconazole)) 1 applic topical BID PRN EXCORIATION 05/30/23 [History Last Taken Unknown] ondansetron HCl 4 mg tablet 4 mg PO Q4H PRN nausea and vomiting 05/30/23 [History Last Taken Unknown] Allergy/AdvReac Type Severity Reaction Status Date / Time No Known Allergies Allergy Verified 05/30/23 15:27 Family History (Reviewed 02/15/23 @ 11:03 by Teresa Plata [employer]ER [id number], [employer]ERSON[employer] M113-C) Mother Diabetes Father Diabetes Heart disease Surgical History (Updated 05/31/23 @ 12:14 by Tamiko Morris) H/O endarterectomy (08/2019) History of cardiac catheterization History of cardioversion (05/20/20) History of heart surgery History of left below knee amputation (05/26/20) History of right below knee amputation (05/2021) S/P bilateral below knee amputation S/P CABG x 1 Social History (Reviewed 02/15/23 @ 11:03 by Teresa Plata [employer] M113, [employer]ERSON[employer] M113-C) housing: [facility] Smoking Status: Former smoker how long ago did patient quit smoking: Quit . alcohol intake: current alcohol intake frequency: a few times a month details: Prior heavier, now occasional. substance use type: does not use ROS Review of Systems ROS Unobtainable: other Constitutional Constitutional: Denies fatigue, fever(s), poor appetite, weight gain or weight loss ENT HEENT: Denies mouth lesions Cardiovascular Cardiovascular: Denies abdominal bloating, abdominal edema or abdominal pain Respiratory/Chest Respiratory/Chest: Denies change in mental status, change in phlegm color, chest congestion or chest tightness Gastrointestinal Gastrointestinal: Denies belching, bloating, change in bowel habits, change in stool character, chewing difficulty, coffee ground emesis, constipation, cramping, diarrhea, dyspepsia, dysphagia, early satiety, excessive flatus, fecal incontinence, heartburn, hematemesis, hematochezia, hemorrhoids, loose stools, melena, nausea, odynophagia, rectal bleeding, tenesmus, vomiting or weight changes Genitourinary Genitourinary: Denies abdominal discomfort, burning urination or itching Musculoskeletal Musculoskeletal: Reports as per HPI; Denies muscle weakness or myalgias Integumentary Integumentary: Denies jaundice Neurologic Neurologic: Denies lack of coordination or weakness Psychiatric Psychiatric: Denies confusion, depression, memory loss, mood swings, paranoia or suicidal ideation Endocrine Endocrinology: Denies systems reviewed and no addt'l complaints, except as documented Hematologic/Lymphatic Hematologic/Lymphatic: Denies anemia, easy bleeding, easy bruising or lymphadenopathy Allergic/Immunologic Allergic/Immunologic: Denies systems reviewed and no addt'l complaints, except as documented Vital Signs Vital Signs Vital Signs: 06/06/23 10:41 06/06/23 10:41 Temperature 97.1 F L Temperature Source Temporal Pulse Rate 62 Respiratory Rate 18 Respiratory Pattern Normal Blood Pressure 128/63 H Blood Pressure Mean 84 Blood Pressure Source Monitor Blood Pressure Position Semi-Fowlers Blood Pressure Location Left Arm Pulse Ox 100 Oxygen Delivery Method Room Air Weight Weight: 162 lb Body Mass Index (BMI) 26.1 Physical Exam Const alert and no apparent distress HEENT head/scalp atraumatic and moist oral mucous membranes Resp normal respiratory effort, no retractions, no use of accessory muscles and clear to auscultation bilaterally Cardio regular rate, regular rhythm, S1 normal heart sound and S2 normal heart sound GI normal to inspection, nondistended, normoactive bowel sounds, soft to palpation, non-tender and non-distended GI Narrative: BLANQUITA drain with bilious fluid. Results Lab / Micro Data Labs: Laboratory Results - last 24 hr 06/06/23 10:17: POC Glucose 134 H Assessment & Plan Assessment/Plan (1) Cholelithiasis and cholecystitis with obstruction: QUALIFIERS: Cholelithiasis location: bile duct Cholecystitis acuity: acute and chronic Qualified Code(s): K80.47 - Calculus of bile duct with acute and chronic cholecystitis with obstruction PLAN: Plan Patient will undergo stent removal. He was explained alternatives, risk, benefits including understanding bleeding, infection, sepsis, perforation, need for emergent surgery . He will have an ASA of 3.
--- NOTE | 2023-06-06 13:05 | OP.CCLET_ITS ---
06/06/2023 Diana Salmeron Re : ERCP procedure for Geoffrey Montero Dear Faviola This procedure was performed on Tuesday, June 06, 2023. My impressions and recommendations are as follows: Impressions : - The entire main bile duct was moderately dilated, acquired. - Choledocholithiasis was found. Complete removal was accomplished by biliary sphincterotomy and balloon extraction. - A biliary sphincterotomy was performed. - The biliary tree was swept. - The right main hepatic duct was successfully dilated. - One stent was removed from the biliary tree. - Cells for cytology obtained in the right main hepatic duct. Recommendations : My findings are described in the full procedure note, which is enclosed. If I can be of further assistance, please feel free to contact me at . Sincerely, Sohail Owen, 06/06/2023 1:05:13 PM This report has been signed electronically.
--- NOTE | 2023-06-06 13:05 | OP.ERCP_ITS ---
Patient Name: Geoffrey Montero Procedure Date: 06/06/2023 11:25 AM Date of : 1940 Age: 82 Procedure: ERCP Indications: Bile duct stone(s), Stent removal Providers: Sohail Owen DO Referring MD: Diana Salmeron Medicines: Monitored Anesthesia Care Patient Profile: This is an 82 year old male. Refer to note in patient chart for documentation of history and physical. Patient has symptoms of acute right upper quadrant abdominal pain and acute jaundice. His most recent ERCP for stent and ERCP for stone removal was within the past six months. He is status post laparoscopic cholecystectomy within the past three months. Complications: No immediate complications. Procedure: Pre-Anesthesia Assessment: - Prior to the procedure, a History and Physical was performed, and patient medications and allergies were reviewed. The patient is competent. The risks and benefits of the procedure and the sedation options and risks were discussed with the patient. All questions were answered and informed consent was obtained. Patient identification and proposed procedure were verified by the physician in the pre-procedure area. Mental Status Examination: alert and oriented. Airway Examination: normal oropharyngeal airway and neck mobility. Respiratory Examination: clear to auscultation. CV Examination: normal. Prophylactic Antibiotics: The patient does not require prophylactic antibiotics. Prior Anticoagulants: The patient has taken no anticoagulant or antiplatelet agents. ASA Grade Assessment: III - A patient with severe systemic disease. After reviewing the risks and benefits, the patient was deemed in satisfactory condition to undergo the procedure. The anesthesia plan was to use monitored anesthesia care (MAC). Immediately prior to administration of medications, the patient was re-assessed for adequacy to receive sedatives. The heart rate, respiratory rate, oxygen saturations, blood pressure, adequacy of pulmonary ventilation, and response to care were monitored throughout the procedure. The physical status of the patient was re-assessed after the procedure. After obtaining informed consent, the scope was passed under direct vision. Throughout the procedure, the patient's blood pressure, pulse, and oxygen saturations were monitored continuously. The was introduced through the mouth, and advanced to the duodenum and used to inject contrast into the bile duct and ventral pancreatic duct. The ERCP was accomplished without difficulty. The patient tolerated the procedure well. Scope In: 12:36:14 PM Scope Out: 12:54:00 PM Total Procedure Duration Time 0 hours 17 minutes 46 seconds Findings: The dowel 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 film was normal. The esophagus was successfully intubated under direct vision. The scope was advanced to a normal major papilla in the descending duodenum without detailed examination of the pharynx, larynx and associated structures, and upper GI tract. The upper GI tract was grossly normal. A straight Roadrunner wire was passed into the biliary tree. The short-nosed traction sphincterotome was passed over the guidewire and the bile duct was then deeply cannulated. Contrast was injected. I personally interpreted the bile duct and pancreatic duct images. Ductal flow of contrast was adequate. Image quality was excellent. Contrast extended to the cystic duct. Contrast extended to the entire biliary tree. Opacification of the entire opacified area was successful. The maximum diameter of the ducts was 10 mm. The lower third of the main bile duct contained three stones, the largest of which was 6 mm in diameter. The main bile duct was moderately dilated, acquired. The largest diameter was 10 mm. A 5 mm biliary sphincterotomy was made with a traction (standard) sphincterotome using ERBE electrocautery. The sphincterotomy oozed blood. The biliary tree was swept with a 15 mm balloon starting at the right intrahepatic duct(s). Sludge was swept from the duct. All stones were removed. The right main hepatic duct was successfully dilated with a 6-7-8 mm balloon (to a maximum balloon size of 8 mm) dilator. One stent was removed from the biliary tree using a snare and sent for cytology. The stent was found to be partially occluded via the water column test. Cells for cytology were obtained by brushing in the right main hepatic duct. Impression: - The entire main bile duct was moderately dilated, acquired. - Choledocholithiasis was found. Complete removal was accomplished by biliary sphincterotomy and balloon extraction. - A biliary sphincterotomy was performed. - The biliary tree was swept. - The right main hepatic duct was successfully dilated. - One stent was removed from the biliary tree. - Cells for cytology obtained in the right main hepatic duct. Procedure Code(s): --- Professional --- 66991, 59, Endoscopic retrograde cholangiopancreatography (ERCP); with trans-endoscopic balloon dilation of biliary/pancreatic duct(s) or of ampulla (sphincteroplasty), including sphincterotomy, when performed, each duct 73750, 51, Endoscopic retrograde cholangiopancreatography (ERCP); with removal of foreign body(s) or stent(s) from biliary/pancreatic duct(s) 34519, Endoscopic retrograde cholangiopancreatography (ERCP); with removal of calculi/debris from biliary/pancreatic duct(s) 61493, 59, Endoscopic retrograde cholangiopancreatography (ERCP); with sphincterotomy/papillotomy 45253, 26, Combined endoscopic catheterization of the biliary and pancreatic ductal systems, radiological supervision and interpretation CPT copyright 2021 [employer]. All rights reserved. The codes documented in this report are preliminary and upon cane flume feeding 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 review may be revised to meet current compliance requirements. Sohail Owen DO 06/06/2023 1:05:13 PM This report has been signed electronically. Number of Addenda: 0 Note Initiated On: 06/06/2023 11:25 AM
[2023-06-06 14:08] LABS: Bedside Glucose 112 mg/dL (74-106)
--- NOTE | 2023-06-06 15:36 | SUR.PHASEII ---
report called to skilled nursing
== END 2023-06-06 15:36 | disposition home or self-care (01) ==
LOC: EN 09:42 → AC 09:44
PROVIDERS: PCP Internal Medicine; Referring Provider Internal Medicine; Visit Provider Internal Medicine Gastroenterology
PROC: (CPT 43260; principal; 2023-06-06 11:40)
DX: K80.50 Calculus of bile duct without cholangitis or cholecystitis without obstruction (principal); E11.51 Type 2 diabetes mellitus with diabetic peripheral angiopathy without gangrene; Z89.511 Acquired absence of right leg below knee; Z89.512 Acquired absence of left leg below knee; M31.6 Other giant cell arteritis; J44.9 Chronic obstructive pulmonary disease, unspecified; I48.0 Paroxysmal atrial fibrillation; Z79.4 Long term (current) use of insulin; Z46.89 Encounter for fitting and adjustment of other specified devices; I10 Essential (primary) hypertension; I25.10 Atherosclerotic heart disease of native coronary artery without angina pectoris; E07.9 Disorder of thyroid, unspecified; E78.00 Pure hypercholesterolemia, unspecified; E66.9 Obesity, unspecified; Z87.891 Personal history of nicotine dependence; Z79.899 Other long term (current) drug therapy; Z79.01 Long term (current) use of anticoagulants; Z79.82 Long term (current) use of aspirin; Z79.84 Long term (current) use of oral hypoglycemic drugs; I25.2 Old myocardial infarction; Z95.1 Presence of aortocoronary bypass graft; Z68.26 Body mass index [BMI] 26.0-26.9, adult
CPT/HCPCS: 43277; 43275; 74330; 76000; 82962; 88108; 88161; 88305; 88313; 93005; J7120; J2405

== ENCOUNTER → 2023-12-20 | Outpatient (REF) | payer MEDICARE, MEDICAID, SELFPAY ==
[2023-12-20 07:15] LABS: Hematocrit 42.1 % (40-54); Hemoglobin 12.9 g/dL (13.0-16.5); Mean Corp Hgb Conc 30.6 g/dL (32-36); Mean Corpuscular Hgb 27.3 pg (27.0-32.0); Mean Corpuscular Volume 89.2 fL (80-94); Mean Platelet Vol. 11.6 fl (6.2-12.0); Platelet Count 248 K/mm3 (150-450); RBC Distribution Width CV 16.8 % (11.6-14.6); RBC Distribution Width SD 54.3 fl (35.1-43.9); Red Blood Count 4.72 M/mm3 (4.6-6.2); White Blood Count 11.8 K/mm3 (4.4-11.0)
[2023-12-20 08:23] LABS: ALB/GLOB Ratio 0.7 RATIO (0.9-2.4); AST(SGOT) 17 U/L (15-37); Alanine Aminotransfer ALT/SGPT 28 U/L (16-61); Albumin, Serum 2.7 g/dL (3.2-5.0); Alkaline Phosphatase 132 U/L (45-117); Anion Gap 6 (5-15); BUN 38 mg/dL (7-18); BUN/Creat Ratio 27.3 RATIO (10-20); Calcium,Total 8.5 mg/dL (8.5-10.1); Chloride 108 mmol/L (98-107); Cholesterol 95 mg/dL (200); Creatinine, Serum 1.39 mg/dL (0.70-1.30); EST Glomerular Filtration Rate 52 mL/min (>60); Est Glom Filt Rate - Afr Amer 63 mL/min (>60); Globulin 3.7 g/dL (2.2-4.2); Glucose 132 mg/dL (74-106); High Density Lipoprotein 32 mg/dL; Phosphorus 3.2 mg/dL (2.5-4.9); Potassium 4.4 mmol/L (3.5-5.1); Protein, Total 6.4 g/dL (6.4-8.2); Sodium Level 139 mmol/L (136-145); Thyroid Stim Hormone (TSH) 1.15 uIU/mL (0.358-3.74); Triglycerides 129 mg/dL; Very Low Density Lipoprotein 26 mg/dL (5-40)
[2023-12-20 09:57] LABS: Hemoglobin A1c 6.7 % (3.8-5.6)
== END ==
LOC: OLS.WHLCAR 05:00
PROVIDERS: PCP Internal Medicine; Visit Provider Internal Medicine
DX: J96.11 Chronic respiratory failure with hypoxia (principal); E11.22 Type 2 diabetes mellitus with diabetic chronic kidney disease; E11.40 Type 2 diabetes mellitus with diabetic neuropathy, unspecified; N18.9 Chronic kidney disease, unspecified
CPT/HCPCS: 36415; 80053; 80061; 83036; 84100; 84443; 85027

== ENCOUNTER → 2023-12-25 | Outpatient (REF) | payer MEDICARE, MEDICAID, SELFPAY ==
[2023-12-25 10:04] LABS: Hematocrit 39.5 % (40-54); Hemoglobin 12.2 g/dL (13.0-16.5); Mean Corp Hgb Conc 30.9 g/dL (32-36); Mean Corpuscular Hgb 27.5 pg (27.0-32.0); Mean Corpuscular Volume 89.2 fL (80-94); Mean Platelet Vol. 11.8 fl (6.2-12.0); Platelet Count 230 K/mm3 (150-450); RBC Distribution Width CV 17.2 % (11.6-14.6); RBC Distribution Width SD 55.6 fl (35.1-43.9); Red Blood Count 4.43 M/mm3 (4.6-6.2); White Blood Count 11.7 K/mm3 (4.4-11.0)
[2023-12-25 10:32] LABS: ALB/GLOB Ratio 0.7 RATIO (0.9-2.4); AST(SGOT) 19 U/L (15-37); Alanine Aminotransfer ALT/SGPT 23 U/L (16-61); Albumin, Serum 2.6 g/dL (3.2-5.0); Alkaline Phosphatase 125 U/L (45-117); Anion Gap 9 (5-15); BUN 52 mg/dL (7-18); BUN/Creat Ratio 31.7 RATIO (10-20); Chloride 111 mmol/L (98-107); Cholesterol 100 mg/dL (200); Creatinine, Serum 1.64 mg/dL (0.70-1.30); EST Glomerular Filtration Rate 43 mL/min (>60); Est Glom Filt Rate - Afr Amer 52 mL/min (>60); Globulin 3.7 g/dL (2.2-4.2); Glucose 206 mg/dL (74-106); High Density Lipoprotein 30 mg/dL; Potassium 3.6 mmol/L (3.5-5.1); Protein, Total 6.3 g/dL (6.4-8.2); Sodium Level 141 mmol/L (136-145); Thyroid Stim Hormone (TSH) 0.96 uIU/mL (0.358-3.74); Triglycerides 160 mg/dL; Very Low Density Lipoprotein 32 mg/dL (5-40)
[2023-12-25 12:37] LABS: Hemoglobin A1c 6.8 % (3.8-5.6)
== END ==
LOC: OLS.WHLCAR 04:00
PROVIDERS: PCP Internal Medicine; Referring Provider Internal Medicine; Visit Provider Internal Medicine
DX: E11.40 Type 2 diabetes mellitus with diabetic neuropathy, unspecified (principal); J96.11 Chronic respiratory failure with hypoxia; F03.90 Unspecified dementia, unspecified severity, without behavioral disturbance, psychotic disturbance, mood disturbance, and anxiety
CPT/HCPCS: 36415; 80053; 80061; 83036; 84443; 85027

== ENCOUNTER → 2024-01-24 | Outpatient (REF) | payer MEDICARE, MEDICAID, SELFPAY ==
[2024-01-24 08:56] LABS: Albumin, Serum 2.5 g/dL (3.2-5.0); BUN 44 mg/dL (7-18); BUN/Creat Ratio 27.5 RATIO (10-20); Calcium,Total 7.7 mg/dL (8.5-10.1); Chloride 109 mmol/L (98-107); EST Glomerular Filtration Rate 44 mL/min (>60); Est Glom Filt Rate - Afr Amer 53 mL/min (>60); Glucose 154 mg/dL (74-106); Phosphorus 3.4 mg/dL (2.5-4.9); Potassium 3.4 mmol/L (3.5-5.1); Sodium Level 140 mmol/L (136-145); T4 Free Direct 1.25 ng/dL (0.76-1.46)
== END ==
LOC: OLS.WHLCAR 05:00
PROVIDERS: PCP Internal Medicine; Visit Provider Internal Medicine
DX: E11.22 Type 2 diabetes mellitus with diabetic chronic kidney disease (principal); E11.40 Type 2 diabetes mellitus with diabetic neuropathy, unspecified; N18.9 Chronic kidney disease, unspecified; J96.11 Chronic respiratory failure with hypoxia; F03.90 Unspecified dementia, unspecified severity, without behavioral disturbance, psychotic disturbance, mood disturbance, and anxiety; N18.32 Chronic kidney disease, stage 3b
CPT/HCPCS: 36415; 80069; 84439

== ENCOUNTER → 2024-01-29 | Outpatient (REF) | payer MEDICARE, MEDICAID, SELFPAY ==
[2024-01-29 09:13] LABS: Potassium 4.1 mmol/L (3.5-5.1)
== END ==
LOC: OLS.WHLCAR 04:00
PROVIDERS: PCP Internal Medicine; Visit Provider Internal Medicine
DX: E87.6 Hypokalemia (principal); E11.40 Type 2 diabetes mellitus with diabetic neuropathy, unspecified
CPT/HCPCS: 36415; 84132

== ENCOUNTER → 2024-02-22 | Outpatient (REF) | payer MEDICARE, MEDICAID, SELFPAY ==
[2024-02-22 08:27] LABS: Albumin, Serum 2.7 g/dL (3.2-5.0); BUN 39 mg/dL (7-18); BUN/Creat Ratio 27.3 RATIO (10-20); Calcium,Total 8.9 mg/dL (8.5-10.1); Chloride 106 mmol/L (98-107); Creatinine, Serum 1.43 mg/dL (0.70-1.30); EST Glomerular Filtration Rate 50 mL/min (>60); Est Glom Filt Rate - Afr Amer 61 mL/min (>60); Glucose 118 mg/dL (74-106); Phosphorus 3.5 mg/dL (2.5-4.9); Potassium 4.3 mmol/L (3.5-5.1); Sodium Level 136 mmol/L (136-145)
== END ==
LOC: OLS.WHLEAS 05:00
PROVIDERS: PCP Internal Medicine; Visit Provider Internal Medicine
DX: E11.22 Type 2 diabetes mellitus with diabetic chronic kidney disease (principal); E11.40 Type 2 diabetes mellitus with diabetic neuropathy, unspecified; N18.9 Chronic kidney disease, unspecified
CPT/HCPCS: 36415; 80069

== ENCOUNTER → 2024-03-20 05:00 | Outpatient (REF) | payer MEDICARE, MEDICAID, SELFPAY ==
[2024-03-20 07:54] LABS: Albumin, Serum 2.8 g/dL (3.2-5.0); BUN 40 mg/dL (7-18); Calcium,Total 8.5 mg/dL (8.5-10.1); Chloride 113 mmol/L (98-107); Creatinine, Serum 1.38 mg/dL (0.70-1.30); EST Glomerular Filtration Rate 52 mL/min (>60); Est Glom Filt Rate - Afr Amer 63 mL/min (>60); Glucose 102 mg/dL (74-106); Phosphorus 3.3 mg/dL (2.5-4.9); Potassium 3.8 mmol/L (3.5-5.1); Sodium Level 140 mmol/L (136-145)
== END ==
LOC: OLS.WHLEAS 05:00
PROVIDERS: PCP Internal Medicine; Visit Provider Internal Medicine
DX: E11.22 Type 2 diabetes mellitus with diabetic chronic kidney disease (principal); N18.30 Chronic kidney disease, stage 3 unspecified
CPT/HCPCS: 36415; 80069

== ENCOUNTER → 2024-04-04 | Outpatient (REF) | payer MEDICARE, MEDICAID, SELFPAY ==
[2024-04-04 08:20] LABS: Hematocrit 40.8 % (40-54); Hemoglobin 12.9 g/dL (13.0-16.5); Mean Corp Hgb Conc 31.6 g/dL (32-36); Mean Corpuscular Hgb 28.7 pg (27.0-32.0); Mean Corpuscular Volume 90.9 fL (80-94); Mean Platelet Vol. 11.7 fl (6.2-12.0); Platelet Count 237 K/mm3 (150-450); RBC Distribution Width CV 15.7 % (11.6-14.6); RBC Distribution Width SD 51.7 fl (35.1-43.9); Red Blood Count 4.49 M/mm3 (4.6-6.2); White Blood Count 9.6 K/mm3 (4.4-11.0)
[2024-04-04 08:30] LABS: Albumin, Serum 2.9 g/dL (3.2-5.0); BUN 39 mg/dL (7-18); BUN/Creat Ratio 27.5 RATIO (10-20); Calcium,Total 8.7 mg/dL (8.5-10.1); Chloride 108 mmol/L (98-107); Creatinine, Serum 1.42 mg/dL (0.70-1.30); EST Glomerular Filtration Rate 51 mL/min (>60); Est Glom Filt Rate - Afr Amer 61 mL/min (>60); Glucose 144 mg/dL (74-106); Phosphorus 3.4 mg/dL (2.5-4.9); Sodium Level 140 mmol/L (136-145)
== END ==
LOC: OLS.WHLEAS 05:00
PROVIDERS: PCP Internal Medicine; Visit Provider Internal Medicine
DX: E11.40 Type 2 diabetes mellitus with diabetic neuropathy, unspecified (principal); J96.11 Chronic respiratory failure with hypoxia; F03.90 Unspecified dementia, unspecified severity, without behavioral disturbance, psychotic disturbance, mood disturbance, and anxiety
CPT/HCPCS: 36415; 80069; 83970; 85027

== ENCOUNTER → 2024-04-24 | Outpatient (REF) | payer MEDICARE, MEDICAID, SELFPAY ==
[2024-04-24 07:17] LABS: Albumin, Serum 2.9 g/dL (3.2-5.0); BUN 37 mg/dL (7-18); BUN/Creat Ratio 23.6 RATIO (10-20); Calcium,Total 8.8 mg/dL (8.5-10.1); Chloride 110 mmol/L (98-107); Creatinine, Serum 1.57 mg/dL (0.70-1.30); EST Glomerular Filtration Rate 45 mL/min (>60); Est Glom Filt Rate - Afr Amer 55 mL/min (>60); Glucose 157 mg/dL (74-106); Phosphorus 3.6 mg/dL (2.5-4.9); Potassium 4.2 mmol/L (3.5-5.1); Sodium Level 139 mmol/L (136-145)
== END ==
LOC: OLS.WHLEAS 05:00
PROVIDERS: PCP Internal Medicine; Visit Provider Internal Medicine
DX: E11.22 Type 2 diabetes mellitus with diabetic chronic kidney disease (principal); E11.40 Type 2 diabetes mellitus with diabetic neuropathy, unspecified; N18.9 Chronic kidney disease, unspecified; F03.90 Unspecified dementia, unspecified severity, without behavioral disturbance, psychotic disturbance, mood disturbance, and anxiety; J96.11 Chronic respiratory failure with hypoxia
CPT/HCPCS: 36415; 80069

== ENCOUNTER → 2024-05-22 | Outpatient (REF) | payer MEDICARE, MEDICAID, SELFPAY ==
[2024-05-22 08:48] LABS: Albumin, Serum 2.9 g/dL (3.2-5.0); BUN 36 mg/dL (7-18); BUN/Creat Ratio 20.5 RATIO (10-20); Calcium,Total 8.7 mg/dL (8.5-10.1); Chloride 107 mmol/L (98-107); Creatinine, Serum 1.76 mg/dL (0.70-1.30); EST Glomerular Filtration Rate 40 mL/min (>60); Est Glom Filt Rate - Afr Amer 48 mL/min (>60); Glucose 145 mg/dL (74-106); Phosphorus 3.9 mg/dL (2.5-4.9); Potassium 4.1 mmol/L (3.5-5.1); Sodium Level 138 mmol/L (136-145)
== END ==
LOC: OLS.WHLEAS 05:32
PROVIDERS: PCP Internal Medicine; Visit Provider Internal Medicine
DX: E11.22 Type 2 diabetes mellitus with diabetic chronic kidney disease (principal); N18.9 Chronic kidney disease, unspecified; E11.40 Type 2 diabetes mellitus with diabetic neuropathy, unspecified
CPT/HCPCS: 36415; 80069

== ENCOUNTER → 2024-06-17 13:00 | Outpatient (REF) | payer MEDICARE, MEDICAID, SELFPAY ==
[2024-06-18 08:24] LABS: Color, Urine Red (Yellow); Glucose, Dipstick 1000 mg/dl (Normal); Ketone-Dipstick Negative (Negative); Leukocyte Esterase-Dipstick 25 /ul (Negative); Nitrite-Dipstick Negative (Negative); Occult Blood-Urine 250 /ul (Negative); Protein-Dipstick 500 mg/dl (Negative); Specific Gravity, Urine 1.015 (1.002-1.030); Urine Bilirubin Dipstick Negative (Negative); Urine Clarity Cloudy (Clear); Urine Urobilinogen Normal (Normal)
== END ==
LOC: OLS.WHLEAS 13:00
PROVIDERS: PCP Internal Medicine; Visit Provider Internal Medicine
DX: R31.0 Gross hematuria (principal)
CPT/HCPCS: 81002; 87086

== ENCOUNTER → 2024-06-20 05:00 | Outpatient (REF) | payer MEDICARE, MEDICAID, SELFPAY ==
[2024-06-20 09:10] LABS: Absolute Lymphocyte Count 1.97 X10^3/uL (0.83-4.51); Absolute Neutrophil Count 5.5 X10^3/uL (2.0-7.7); Basophil# 0.03 X10^3/uL; Basophil% 0.3 % (0-1); Eosinophil# 0.23 X10^3/uL; Eosinophils% 2.5 % (0-5); Hematocrit 42.8 % (40-54); Hemoglobin 13.6 g/dL (13.0-16.5); Lymphocyte # 1.97 X10^3/ul (0.83-4.51); Lymphocyte % 21.8 % (19-41); Mean Corp Hgb Conc 31.8 g/dL (32-36); Mean Corpuscular Hgb 28.6 pg (27.0-32.0); Mean Corpuscular Volume 89.9 fL (80-94); Mean Platelet Vol. 11.9 fl (6.2-12.0); Monocyte# 1.18 X10^3/uL; NRBC Flagged by Analyzer 0 % (0-5); Neutrophil # 5.47 X10^3/uL (2.7-7.7); Neutrophil % 60.5 % (47-70); Platelet Count 239 K/mm3 (150-450); RBC Distribution Width CV 14.7 % (11.6-14.6); RBC Distribution Width SD 47.8 fl (35.1-43.9); Red Blood Count 4.76 M/mm3 (4.6-6.2); White Blood Count 9.1 K/mm3 (4.4-11.0)
[2024-06-20 09:29] LABS: ALB/GLOB Ratio 0.7 RATIO (0.9-2.4); AST(SGOT) 37 U/L (15-37); Alanine Aminotransfer ALT/SGPT 45 U/L (16-61); Albumin, Serum 2.8 g/dL (3.2-5.0); Alkaline Phosphatase 123 U/L (45-117); Anion Gap 8 (5-15); BUN 32 mg/dL (7-18); Calcium,Total 8.4 mg/dL (8.5-10.1); Chloride 104 mmol/L (98-107); Creatinine, Serum 1.68 mg/dL (0.70-1.30); EST Glomerular Filtration Rate 42 mL/min (>60); Est Glom Filt Rate - Afr Amer 51 mL/min (>60); Globulin 3.9 g/dL (2.2-4.2); Glucose 190 mg/dL (74-106); Potassium 4.2 mmol/L (3.5-5.1); Protein, Total 6.7 g/dL (6.4-8.2); Sodium Level 136 mmol/L (136-145)
[2024-06-21 09:37] LABS: Cholesterol 104 mg/dL (200); High Density Lipoprotein 29 mg/dL; Triglycerides 145 mg/dL; Very Low Density Lipoprotein 29 mg/dL (5-40)
[2024-06-21 10:07] LABS: Hemoglobin A1c 8.3 % (3.8-5.6)
== END ==
LOC: OLS.WHLEAS 05:00
PROVIDERS: PCP Internal Medicine; Visit Provider Internal Medicine
DX: E11.40 Type 2 diabetes mellitus with diabetic neuropathy, unspecified (principal); R31.0 Gross hematuria
CPT/HCPCS: 36415; 80053; 80061; 83036; 84443; 85025

== ENCOUNTER → 2024-06-27 05:50 | Outpatient (REF) | payer MEDICARE, MEDICAID, SELFPAY ==
[2024-06-27 09:58] LABS: EST Glomerular Filtration Rate 31 mL/min (>60); Est Glom Filt Rate - Afr Amer 37 mL/min (>60)
== END ==
LOC: OLS.WHLEAS 05:50
PROVIDERS: PCP Internal Medicine; Visit Provider Internal Medicine
DX: R31.0 Gross hematuria (principal); J96.11 Chronic respiratory failure with hypoxia; E11.40 Type 2 diabetes mellitus with diabetic neuropathy, unspecified; F03.90 Unspecified dementia, unspecified severity, without behavioral disturbance, psychotic disturbance, mood disturbance, and anxiety
CPT/HCPCS: 36415; 82565

== ENCOUNTER → 2024-07-24 04:00 | Outpatient (REF) | payer MEDICARE, MEDICAID, SELFPAY ==
[2024-07-24 06:51] LABS: Albumin, Serum 2.7 g/dL (3.2-5.0); BUN 39 mg/dL (7-18); BUN/Creat Ratio 20.5 RATIO (10-20); Calcium,Total 8.2 mg/dL (8.5-10.1); Chloride 106 mmol/L (98-107); EST Glomerular Filtration Rate 36 mL/min (>60); Est Glom Filt Rate - Afr Amer 44 mL/min (>60); Glucose 230 mg/dL (74-106); Phosphorus 3.4 mg/dL (2.5-4.9); Potassium 4.3 mmol/L (3.5-5.1); Sodium Level 135 mmol/L (136-145)
[2024-07-24 08:32] LABS: Hemoglobin A1c 8.3 % (3.8-5.6)
== END ==
LOC: OLS.WHLEAS 04:00
PROVIDERS: PCP Internal Medicine; Referring Provider Internal Medicine; Visit Provider Internal Medicine
DX: E11.40 Type 2 diabetes mellitus with diabetic neuropathy, unspecified (principal); J96.11 Chronic respiratory failure with hypoxia; F03.90 Unspecified dementia, unspecified severity, without behavioral disturbance, psychotic disturbance, mood disturbance, and anxiety
CPT/HCPCS: 36415; 80069; 83036

== ENCOUNTER → 2024-08-01 14:00 | Outpatient (REF) | payer MEDICAID, SELFPAY ==
[2024-08-02 12:59] LABS: Microalbumin:Creatinine Ratio 1371.8 mg/g CRE (<30 mg/g CRE)
== END ==
LOC: OLS.WHLEAS 14:00
PROVIDERS: PCP Internal Medicine; Visit Provider Internal Medicine
DX: E11.40 Type 2 diabetes mellitus with diabetic neuropathy, unspecified (principal)
CPT/HCPCS: 82043; 82570

== ENCOUNTER → 2024-08-21 | Outpatient (REF) | payer MEDICARE, MEDICAID, SELFPAY ==
[2024-08-21 08:14] LABS: Albumin, Serum 3.3 g/dL (3.4-4.8); Anion Gap 14 (5-15); BUN 38 mg/dL (4-19); BUN/Creat Ratio 18.2 RATIO (10-20); Calcium,Total 8.8 mg/dL (7.6-11.0); Carbon Dioxide 20.5 mmol/L (21.0-32.0); Chloride 102 mmol/L (98-108); Creatinine, Serum 2.07 mg/dL (0.70-1.20); EST Glomerular Filtration Rate 31 (>60); Glucose 198 mg/dL (70-99); Phosphorus 4.2 mg/dL (2.7-4.5); Potassium 4.3 mmol/L (3.3-5.1); Sodium Level 136 mmol/L (133-145)
== END ==
LOC: OLS.WHLEAS 05:00
PROVIDERS: PCP Internal Medicine; Visit Provider Internal Medicine
DX: E11.22 Type 2 diabetes mellitus with diabetic chronic kidney disease (principal); N18.9 Chronic kidney disease, unspecified; E11.40 Type 2 diabetes mellitus with diabetic neuropathy, unspecified
CPT/HCPCS: 36415; 80069

== ENCOUNTER → 2024-09-18 | Outpatient (REF) | payer MEDICARE, MEDICAID, SELFPAY ==
[2024-09-18 09:29] LABS: Hematocrit 41.2 % (40-54); Hemoglobin 13.5 g/dL (13.0-16.5); Mean Corp Hgb Conc 32.8 g/dL (32-36); Mean Corpuscular Hgb 29.3 pg (27.0-32.0); Mean Corpuscular Volume 89.6 fL (80-94); Platelet Count 209 K/mm3 (150-450); RBC Distribution Width CV 14.4 % (11.6-14.6); RBC Distribution Width SD 47.1 fl (35.1-43.9); White Blood Count 8.5 K/mm3 (4.4-11.0)
[2024-09-18 09:56] LABS: Cholesterol 108 mg/dL (<=200); High Density Lipoprotein 25 mg/dL; Low Density Lipoprotein Calc. 44 mg/dL; Triglycerides 192 mg/dL; Very Low Density Lipoprotein 38 mg/dL (5-40); cholesterol:hdl ratio screen 4.29
[2024-09-18 09:57] LABS: AST(SGOT) 43 U/L (<=37); Alanine Aminotransfer ALT/SGPT 41 U/L (<=46); Albumin, Serum 3.4 g/dL (3.4-4.8); Alkaline Phosphatase 113 U/L (40-129); Anion Gap 14 (5-15); BUN 33 mg/dL (4-19); BUN/Creat Ratio 14.2 RATIO (10-20); Carbon Dioxide 19.8 mmol/L (21.0-32.0); Chloride 102 mmol/L (98-108); Creatinine, Serum 2.35 mg/dL (0.70-1.20); EST Glomerular Filtration Rate 27 (>60); Globulin 3.4 g/dL (2.2-4.2); Glucose 287 mg/dL (70-99); Potassium 4.1 mmol/L (3.3-5.1); Protein, Total 6.7 g/dL (5.9-8.4); Sodium Level 135 mmol/L (133-145); Total Bilirubin 0.55 mg/dL (0.00-1.30)
[2024-09-18 10:04] LABS: Hemoglobin A1c 11.3 % (<=5.6)
== END ==
LOC: OLS.WHLEAS 05:00
PROVIDERS: PCP Internal Medicine; Visit Provider Internal Medicine
DX: J96.11 Chronic respiratory failure with hypoxia (principal); E11.40 Type 2 diabetes mellitus with diabetic neuropathy, unspecified; F03.90 Unspecified dementia, unspecified severity, without behavioral disturbance, psychotic disturbance, mood disturbance, and anxiety; E11.22 Type 2 diabetes mellitus with diabetic chronic kidney disease; N18.9 Chronic kidney disease, unspecified
CPT/HCPCS: 36415; 80053; 80061; 83036; 84443; 85027

== ENCOUNTER 2024-10-15 15:57 | Emergency (ER) | payer MEDICARE, MEDICAID, SELFPAY ==
[2024-10-15 16:00] VITALS: BP 174/92; PULSE 99; RESP 16; TEMP 36.8; O2SAT 99
[2024-10-15 17:47] VITALS: BMI 29.9
[2024-10-15 18:00] VITALS: BP 154/78; PULSE 64; RESP 18; O2SAT 98
--- NOTE | 2024-10-15 18:50 | CT_ITS ---
PROCEDURE: ORB SELLA POST FOSSA EAR W/O 10/15/2024 REASON FOR EXAM: INJURY TECHNIQUE: CT of the orbits without contrast. One or more dose reduction techniques were used (e.g., Automated exposure control, adjustment of the mA and/or kV according to patient size, use of iterative reconstruction technique). FINDINGS: Globes: Intact Extraocular Muscles: Normal Orbits: No abnormal mass. Lacrimal Glands: Normal Bones: No fracture. Other: Visualized paranasal sinuses and intracranial structures: No sinusitis. CT/Orb Sella Post Fossa Ear w/o IMPRESSION: NO ORBITAL FRACTURE OR RETROBULBAR HEMATOMA. Reading Location: [id number]
--- NOTE | 2024-10-15 18:52 | ED.VIS.FALL ---
HPI HPI - Fall History of Present Illness Chief Complaint: Fall Occured/Mechanism Occurred: Today Narrative: Fell out of his motorized chair Pain/Injury Location: Left hand, left elbow, bilateral knees, left periorbital area Pain Location: face, upper extremity and lower extremity Quality of Pain: - (Cramping) Worsened by: Nothing Relieved by: Nothing Narrative Narrative: Patient presents after a fall out of his motorized chair today. Patient states he was in his chair going down the sidewalk when the sidewalk was uneven. Patient did not see this and hit the uneven sidewalk. Patient states that this caused him to fall forward out of his motorized chair. Patient hit the left side of his head. Patient also complains of pain in his left elbow. Patient also admits to abrasions everywhere both lower extremities and his left hand. Patient denies any loss of consciousness. Patient denies any paresthesias or weakness. Patient is unsure of his last tetanus. Tetanus Immunization: Unknown [facility] Medical History History of echocardiogram History of stress test Cardiology follow-up encounter Sleep apnea Loss of hearing CAD (coronary artery disease) High cholesterol History of heart attack Renal mass, left Thyroid disease History of atrial fibrillation Hypertension History of CHF (congestive heart failure) Wears glasses Wears dentures Insulin dependent diabetes mellitus History of renal disease Non-smoker COPD (chronic obstructive pulmonary disease) Obesity Atherosclerotic heart disease of [place] coronary artery without angina pectoris Paroxysmal atrial fibrillation 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 Essential hypertension Tinea unguium Vitamin D deficiency Edentulous Tobacco dependence in remission Hypothyroidism Diabetes mellitus type 2, uncontrolled Home Medications ?Medication ?Instructions ?Recorded ?Last Taken ?Type levothyroxine 50 mcg tablet 50 mcg PO DAILY 09/01/21 06/06/23 History apixaban 2.5 mg tablet (Eliquis) 2.5 mg PO DAILY 03/03/22 06/03/23 History atorvastatin 40 mg tablet 40 mg PO DAILY 03/03/22 06/05/23 History carvedilol 3.125 mg tablet (Coreg) 3.125 mg PO BID 05/16/22 06/06/23 History acetaminophen 325 mg capsule 650 mg PO Q4H PRN pain 12/14/22 Unknown History empagliflozin 10 mg tablet 25 mg PO DAILY 12/14/22 06/05/23 History (Jardiance) multivitamin 1 tab PO DAILY 12/14/22 Unknown History polyethylene glycol 3350 17 17 g PO DAILY PRN constipation 12/14/22 Unknown History gram/dose oral powder (Miralax) glipizide 2.5 mg tablet, extended 5 mg PO DAILY 01/11/23 06/05/23 History release 24 hr sacubitril 24 mg-valsartan 26 mg 1 tab PO BID 01/11/23 06/06/23 History tablet (Entresto) insulin aspart U-100 100 unit/mL 1 sliding scale dose subcut 02/15/23 Unknown History (3 mL) subcutaneous pen (Novolog USEASDIRECTD FlexPen U-100 Insulin aspart) ondansetron HCl 4 mg tablet 4 mg PO Q4H PRN nausea and vomiting 05/30/23 Unknown History cholestyramine (with sugar) 4 gram 4 g PO QDAY #368.76 grams 03/04/24 Unknown Rx oral powder nystatin 100,000 unit/gram topical 1 applic topical QDAY 03/04/24 Unknown History cream potassium chloride 20 mEq 20 meq PO QDAY 03/04/24 Unknown History tablet,extended release(part/cryst) colestipol 1 gram tablet 2 g (2 x 1 gram) PO QDAY #60 tabs 06/06/24 Unknown Rx Allergy/AdvReac Type Severity Reaction Status Date / Time No Known Allergies Allergy Verified 10/15/24 16:03 Family History Mother Diabetes Father Diabetes Heart disease Surgical History History of heart surgery History of cardiac catheterization S/P bilateral below knee amputation S/P CABG x 1 History of cardioversion (05/20/20) 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 alcohol intake: current alcohol intake frequency: a few times a month details: Prior heavier, now occasional. substance use type: does not use ROS ROS ED Constitutional Constitutional ED: Denies chills or fever(s) Eyes Eyes: Denies blurry vision or change in vision ENT ENT ED: Denies rhinorrhea or sore throat Cardiovascular Cardiovascular: Denies chest pain or palpitations Respiratory/Chest Respiratory/Chest: Denies cough or dyspnea Gastrointestinal Gastrointestinal: Denies nausea or vomiting Genitourinary Genitourinary ED: Denies dysuria or hematuria Musculoskeletal Musculoskeletal: Denies back pain or neck pain Integumentary Reports Abrasions and rash Neurologic Neurologic: Reports headache(s); Denies weakness Allergic/Immunologic Allergic/Immunologic ED: Denies mouth swelling or urticaria EXAM Physical Exam Const Vital Signs: 10/15/24 16:00 10/15/24 17:48 10/15/24 18:00 Temperature 98.2 F Temperature Source Oral Pulse Rate 99 64 Respiratory Rate 16 18 Respiratory Effort Normal Non-Labored Respiratory Depth Normal Respiratory Pattern Normal Blood Pressure 174/92 H 154/78 H Blood Pressure Mean 119 103 Pulse Ox 99 98 Oxygen Delivery Method Room Air Room Air Room Air Positive well nourished and well developed General Appearance ED: well developed and NAD HEENT HEENT Narrative: There is tenderness, edema, and ecchymosis of the left periorbital area. There is a superficial abrasion over this area. There is no bony crepitance or step-off. There is no bleeding noted. Eyes PERRL and EOMs intact bilaterally Neck full ROM and supple Resp normal respiratory effort and clear to auscultation bilaterally Cardio regular rate and regular rhythm GI non-tender and non-distended Palpation: soft Neuro oriented x3, CN's II-XII intact bilaterally, moves all extremities, no focal motor deficits and no sensory deficits noted [place] Coma Scale: document GCS findings Spontaneous Obeys Commands Oriented 15 Sensorium / Orientation: alert Motor Exam: strength 5/5 throughout Skin Skin Narrative: There are abrasions of the anterior knees bilaterally and over the distal stumps of his lower extremities. There is also a skin tear on the dorsal aspect of the left hand and dorsal aspect of his left elbow. There is no active bleeding noted. There is no surrounding erythema or warmth. MDM MDM MDM Narrative Medical decision making narrative: Diagnosis includes orbital fracture, left elbow fracture, contusions, and abrasions. X-rays of the left elbow will be obtained to assess for fracture. CT scan of the orbits will be obtained to assess for orbital fracture. Radiography Diagnostic Testing: X-rays of the left elbow were obtained. There are 3 views. My independent interpretation, there is no acute fracture or dislocation noted. There is no joint effusion noted. There are degenerative changes noted. Radiologist also interpreted the x-rays and agrees. CT scan of the orbits was obtained. Trachea is midline there is no orbital fracture noted. There is no retrobulbar hematoma noted. This was interpreted by the radiologist and was also independently reviewed by myself. Treatment and Re-Evaluation Narrative: Patient was advised of his findings. Patient was given bacitracin dressings. Patient was given a tetanus booster. Patient was instructed to take Tylenol or ibuprofen as needed for pain. Patient was instructed to follow-up with his primary care physician in 5 to 7 days. Patient understood and was agreeable with the plan. All questions were answered. Discharge Plan Triage Chief Complaint: Fall ED Provider: Jesse Angel Dx/Rx/DC Orders Clinical Impression: Contusion of periorbital region, left, Multiple abrasions, Fall Instructions: ED Eye Contusion, ED Head Injury (Adult), ED Skin Tear (Skin Avulsion) Prescriptions: No Action levothyroxine 50 mcg tablet 50 mcg PO DAILY atorvastatin 40 mg tablet 40 mg PO DAILY Eliquis 2.5 mg tablet 2.5 mg PO DAILY carvedilol [Coreg] 3.125 mg tablet 3.125 mg PO BID Rx Instructions: must administer with a meal/food, Hold if SBP less than 100 or HR less than 55 insulin aspart U-100 [Novolog FlexPen U-100 Insulin] 100 unit/mL (3 mL) insulin pen 1 sliding scale dose subcut USEASDIRECTD glipizide 2.5 mg tablet extended release 24hr 5 mg PO DAILY Entresto 24-26 mg tablet 1 tab PO BID potassium chloride 20 mEq tablet,ER particles/crystals 20 meq PO QDAY nystatin 100,000 unit/gram cream 1 applic topical QDAY cholestyramine (with sugar) 4 gram powder 4 g PO QDAY Qty: 368.76 1RF Rx Instructions: administer w/meal; avoid other meds within 1hr before or 4-6hr after dose colestipol 1 gram tablet 2 g PO QDAY Qty: 60 2RF Jardiance 10 mg tablet 25 mg PO DAILY polyethylene glycol 3350 [Miralax] 17 gram/dose Powder 17 g PO DAILY PRN (Reason: constipation) acetaminophen 325 mg capsule 650 mg PO Q4H PRN (Reason: pain) multivitamin Tablet 1 tab PO DAILY ondansetron HCl 4 mg tablet 4 mg PO Q4H PRN (Reason: nausea and vomiting) Rx Instructions: give 1st dose 30min before emetogenic chemo Primary Care Provider: Diana Salmeron Referrals: Diana Salmeron MD [Primary Care Provider] - 5-7 Days Print Language: Pashto Disposition Disposition: Home, Self Care
--- NOTE | 2024-10-15 19:15 | RAD_ITS ---
EXAM: Left elbow CLINICAL HISTORY: Injury, pain COMPARISON: None TECHNIQUE: Three views FINDINGS: No acute fracture or dislocation. Moderate joint space narrowing and osteophyte formation consistent with moderate arthrosis. Normal soft tissues. RAD/Elbow min 3 Views IMPRESSION: No acute fracture or dislocation. Moderate arthrosis. Reading Location: [id number]
[2024-10-15] MEDS: Diphth,Pertuss(Acell),Tet Vac 0.5 ML Vial IM (19:44)
[2024-10-15 20:00] VITALS: PULSE 68; RESP 16
[2024-10-15 22:00] VITALS: RESP 15
[2024-10-16] VITALS: PULSE 64; RESP 14
[2024-10-16 00:07] VITALS: BP 148/76; PULSE 68; RESP 16; TEMP 36.6; O2SAT 97
--- NOTE | 2024-10-16 00:12 | ED.RN ---
Report called to [place]
== END 2024-10-16 00:08 | disposition skilled nursing facility (03) ==
PROVIDERS: Emergency Provider Emergency Medicine; PCP Internal Medicine; Visit Provider Emergency Medicine
DX: S05.12XA Contusion of eyeball and orbital tissues, left eye, initial encounter (principal); Z89.511 Acquired absence of right leg below knee; Z89.512 Acquired absence of left leg below knee; I11.0 Hypertensive heart disease with heart failure; I50.9 Heart failure, unspecified; J44.9 Chronic obstructive pulmonary disease, unspecified; Z79.4 Long term (current) use of insulin; E11.9 Type 2 diabetes mellitus without complications; Z23 Encounter for immunization; S61.412A Laceration without foreign body of left hand, initial encounter; S51.012A Laceration without foreign body of left elbow, initial encounter; S80.212A Abrasion, left knee, initial encounter; S80.211A Abrasion, right knee, initial encounter; V00.811A Fall from moving wheelchair (powered), initial encounter; Y92.480 Sidewalk as the place of occurrence of the external cause; E78.00 Pure hypercholesterolemia, unspecified; I25.10 Atherosclerotic heart disease of native coronary artery without angina pectoris; Z87.891 Personal history of nicotine dependence
CPT/HCPCS: 70480; 73080; 90471; 90715; 99284

== ENCOUNTER → 2024-10-23 | Outpatient (REF) | payer MEDICARE, MEDICAID, SELFPAY ==
[2024-10-23 09:28] LABS: Albumin, Serum 3.3 g/dL (3.4-4.8); Anion Gap 12 (5-15); BUN 38 mg/dL (4-19); BUN/Creat Ratio 21.7 RATIO (10-20); Calcium,Total 8.6 mg/dL (7.6-11.0); Carbon Dioxide 19.8 mmol/L (21.0-32.0); Chloride 106 mmol/L (98-108); Creatinine, Serum 1.73 mg/dL (0.70-1.20); EST Glomerular Filtration Rate 39 (>60); Glucose 129 mg/dL (70-99); Phosphorus 3.2 mg/dL (2.7-4.5); Sodium Level 137 mmol/L (133-145)
== END ==
LOC: OLS.WHLEAS 05:00
PROVIDERS: PCP Internal Medicine; Visit Provider Internal Medicine
DX: E11.22 Type 2 diabetes mellitus with diabetic chronic kidney disease (principal); J96.11 Chronic respiratory failure with hypoxia; E11.40 Type 2 diabetes mellitus with diabetic neuropathy, unspecified; F03.90 Unspecified dementia, unspecified severity, without behavioral disturbance, psychotic disturbance, mood disturbance, and anxiety; N18.9 Chronic kidney disease, unspecified
CPT/HCPCS: 36415; 80069

== ENCOUNTER → 2024-11-07 | Outpatient (REF) | payer MEDICARE, MEDICAID, SELFPAY ==
[2024-11-07 11:25] LABS: Cholesterol 99 mg/dL (<=200); High Density Lipoprotein 21 mg/dL; Low Density Lipoprotein Calc. 43 mg/dL; Triglycerides 171 mg/dL; Very Low Density Lipoprotein 34 mg/dL (5-40)
== END ==
LOC: OLS.WHLEAS 05:00
PROVIDERS: PCP Internal Medicine; Visit Provider Nurse Practitioner Adult Health
DX: E78.00 Pure hypercholesterolemia, unspecified (principal)
CPT/HCPCS: 36415; 80061

== ENCOUNTER → 2024-11-20 05:00 | Outpatient (REF) | payer MEDICARE, MEDICAID, SELFPAY ==
[2024-11-20 07:30] LABS: Albumin, Serum 3.5 g/dL (3.4-4.8); Anion Gap 13 (5-15); BUN 29 mg/dL (4-19); BUN/Creat Ratio 16.5 RATIO (10-20); Calcium,Total 8.8 mg/dL (7.6-11.0); Carbon Dioxide 20.9 mmol/L (21.0-32.0); Chloride 104 mmol/L (98-108); Creatinine, Serum 1.75 mg/dL (0.70-1.20); EST Glomerular Filtration Rate 38 (>60); Glucose 130 mg/dL (70-99); Phosphorus 3.9 mg/dL (2.7-4.5); Potassium 4.2 mmol/L (3.3-5.1); Sodium Level 139 mmol/L (133-145)
== END ==
LOC: OLS.WHLEAS 05:00
PROVIDERS: PCP Internal Medicine; Visit Provider Internal Medicine
DX: E11.22 Type 2 diabetes mellitus with diabetic chronic kidney disease (principal); E11.40 Type 2 diabetes mellitus with diabetic neuropathy, unspecified; N18.9 Chronic kidney disease, unspecified; J96.11 Chronic respiratory failure with hypoxia; F03.90 Unspecified dementia, unspecified severity, without behavioral disturbance, psychotic disturbance, mood disturbance, and anxiety
CPT/HCPCS: 36415; 80069

== ENCOUNTER → 2024-12-18 05:00 | Outpatient (REF) | payer MEDICARE, MEDICAID, SELFPAY ==
[2024-12-18 08:32] LABS: Hematocrit 44.3 % (40-54); Hemoglobin 14.1 g/dL (13.0-16.5); Mean Corp Hgb Conc 31.8 g/dL (32-36); Mean Corpuscular Volume 89.1 fL (80-94); Mean Platelet Vol. 11.5 fl (6.2-12.0); Platelet Count 218 K/mm3 (150-450); RBC Distribution Width CV 14.9 % (11.6-14.6); RBC Distribution Width SD 48.5 fl (35.1-43.9); Red Blood Count 4.97 M/mm3 (4.6-6.2); White Blood Count 7.7 K/mm3 (4.4-11.0)
[2024-12-18 09:09] LABS: AST(SGOT) 27 U/L (<=37); Alanine Aminotransfer ALT/SGPT 20 U/L (<=46); Albumin, Serum 3.3 g/dL (3.4-4.8); Alkaline Phosphatase 117 U/L (40-129); Anion Gap 14 (5-15); BUN 32 mg/dL (4-19); BUN/Creat Ratio 18.6 RATIO (10-20); Calcium,Total 8.8 mg/dL (7.6-11.0); Carbon Dioxide 19.2 mmol/L (21.0-32.0); Chloride 105 mmol/L (98-108); Cholesterol 94 mg/dL (<=200); Globulin 3.5 g/dL (2.2-4.2); Glucose 82 mg/dL (70-99); Low Density Lipoprotein Calc. 48 mg/dL; Potassium 4.3 mmol/L (3.3-5.1); Triglycerides 125 mg/dL; Very Low Density Lipoprotein 25 mg/dL (5-40); cholesterol:hdl ratio screen 4.53
== END ==
LOC: OLS.WHLEAS 05:00
PROVIDERS: PCP Internal Medicine; Visit Provider Internal Medicine
DX: E11.22 Type 2 diabetes mellitus with diabetic chronic kidney disease (principal); N18.9 Chronic kidney disease, unspecified; E11.40 Type 2 diabetes mellitus with diabetic neuropathy, unspecified; J96.11 Chronic respiratory failure with hypoxia; F03.90 Unspecified dementia, unspecified severity, without behavioral disturbance, psychotic disturbance, mood disturbance, and anxiety
CPT/HCPCS: 36415; 80053; 80061; 83036; 84443; 85027

== ENCOUNTER → 2025-01-20 05:00 | Outpatient (REF) | payer MEDICARE, MEDICAID, SELFPAY ==
[2025-01-20 08:56] LABS: Hematocrit 42.5 % (40-54); Hemoglobin 14.0 g/dL (13.0-16.5); Immature Granulocytes Count 0.190 X10^3/uL (0.0-0.0); Mean Corp Hgb Conc 32.9 g/dL (32-36); Mean Corpuscular Volume 88.4 fL (80-94); Mean Platelet Vol. 11.6 fl (6.2-12.0); NRBC Flagged by Analyzer 0 % (0-5); Platelet Count 218 K/mm3 (150-450); RBC Distribution Width CV 14.9 % (11.6-14.6); RBC Distribution Width SD 47.9 fl (35.1-43.9); Red Blood Count 4.81 M/mm3 (4.6-6.2); White Blood Count 9.2 K/mm3 (4.4-11.0)
[2025-01-20 09:16] LABS: PTHIN 55 pg/mL (11-61)
[2025-01-20 09:22] LABS: Albumin, Serum 3.3 g/dL (3.4-4.8); Anion Gap 16 (5-15); BUN 35 mg/dL (4-19); BUN/Creat Ratio 16.1 RATIO (10-20); Calcium,Total 8.4 mg/dL (7.6-11.0); Carbon Dioxide 19.5 mmol/L (21.0-32.0); Chloride 103 mmol/L (98-108); Glucose 211 mg/dL (70-99); Potassium 4.0 mmol/L (3.3-5.1)
== END ==
LOC: OLS.WHLEAS 05:00
PROVIDERS: PCP Internal Medicine; Visit Provider Internal Medicine
DX: N18.32 Chronic kidney disease, stage 3b (principal); E11.22 Type 2 diabetes mellitus with diabetic chronic kidney disease; E11.40 Type 2 diabetes mellitus with diabetic neuropathy, unspecified; J96.11 Chronic respiratory failure with hypoxia; F03.90 Unspecified dementia, unspecified severity, without behavioral disturbance, psychotic disturbance, mood disturbance, and anxiety
CPT/HCPCS: 36415; 80069; 83970; 85025

== ENCOUNTER → 2025-01-22 05:00 | Outpatient (REF) | payer MEDICARE, MEDICAID, SELFPAY ==
--- OUTSIDE RECORDS SUMMARY | 2025-01-22 04:56 | XMS RPT_ITS | CCD ---
Demographics Address [address] %[place] [address] Preferred Language en Marital Status Jewish Affiliation Unknown Race White Ethnic Group Not or Lati no Author Organization [facility] Care Team Providers Care Roller Repairer Name Role Phone Eric LATHAM, Papa Primary Care Provider ERIC DEXTER-CHI Primary Care Unavailable MARIO FINN Referring Unavailable MARIO FINN Attending Unavailable ERIC, DEXTER-CHI Primary Care Unavailable YUSUF COOPER Attending Unavailable ERIC, DEXTER-CHI Referring Unavailable ERIC, DEXTER-CHI Referring Unavailable ERIC, DEXTER-CHI Primary Care Unavailable MARIO FINN Attending Unavailable Eric, Dexter Chi Primary Care Provider Ryan Rodrigues MD Unavailable Yadi White DO Unavailable [phone] DIANA SALMERON MD Primary Care Physician [phone] Ryan Rodrigues MD Unavailable [phone] Ruben White DOyrgracia Unavailable [phone] Isac Lucas Unavailable Diana Salmeron MD Primary Care Provider [phone] Dr. Dexter Reyes Chi Primary Care Provider Dr. Bren Lopes Admit Provider Dr. Bren Lopes Other Provider Dr. Dwayne Palumbo Other Provider Dr. Jesse Haywood Attending Provider Dr. Jesse Haywood Other Provider Dr. Dwayne Palumbo Attending Provider [phone] Friend, Dr. Sauceda Attending Provider Dr. Jesse Haywood Referring Provider Dr. Daniel Rodriguez Other Provider Unavaila Dr. Elias Mendez Attending Provider Dr. Dwayne Palumbo Referring Provider Dr. Dexter Reyes Chi Referring Provider VALENTIN SOFIA DO Attending Unavailable VALENTIN SOFIA DO Primary Care Unavailable VALENTIN SOFIA DO Admitting Unavailable TOMA LATHAM, DR KENNY Diaz Attending Jerrod SALMERON MD, DR ORTIZ Primary Care Unavailable Faviola LATHAM, Diana Primary Care Provider Faviola LATHAM, Dr. Ortiz Primary Care Provider Faviola LATHAM, Dr. Ortiz Referring Provider Kacie Baer Attending Provider Victor M Rojas MD Attending Provider Unavaila ble Tickton TICKET COLLECTOR OR USHER-C, Christina Attending Provider Dr. Victor M Rojas MD Attending Provider Victor M Rojas MD Referring Provider Unavaila ble CONNOR, NIKOLAI Attending Unavailable LATOUF, BUTROS Primary Care Unavailable CONNOR, NIKOLAI Attending Unavailable LATOUF, BUTROS Primary Care Unavailable CONNOR, NIKOLAI Referring Unavailable LATOUF, BUTROS Primary Care Unavailable CONNOR, NIKOLAI Referring Unavailable LATOUF, BUTROS Primary Care Unavailable Faviola LATHAM, Dr. Ortiz Primary Care Provider Dr. Diana Salmeron MD Referring Provider Kacie Baer Attending Provider Dr. Diana Salmeron MD Primary Care Provider Victor M Rojas MD Attending Provider Unavaila ble [place] TICKET COLLECTOR OR USHER-C, Christina Attending Provider Dr. Jesse Angel DO Emergency Provider Faviola LATHAM, Dr. Butros Primary Care Provider [phone] Victor M Rojas MD Attending Provider Unavaila ble [place] TICKET COLLECTOR OR USHER-C, Christina Attending Provider Dr. Jesse Angel DO Attending Provider Lauren Carlson Attending Provider [place] TICKET COLLECTOR OR USHER-C, Christina Attending Provider Faviola LATHAM, Dr. Ortiz Primary Care Provider Victor M Rojas MD Attending Provider Unavaila silvano Rojas MD, Dr. Dow Attending Provider Faviola LATHAM, Dr. Ortiz Primary Care Provider Victor M Rojas MD Attending Provider Unavaila ble [place]ick[place] TICKET COLLECTOR OR USHER-C, Christina Attending Provider Dr. Diana Salmeron MD Referring Provider GAYLA CLINE Attending Unavailable LATOUF, BUTROS Primary Care Unavailable Oleghe OLS, Efewongbe Attending Unavailabl e Latouf, Butros Primary Care Unavailable Oleghe OLS, Efewongbe Attending Unavailabl e Latouf, Butros Primary Care Unavailable Oleghe OLS, Efewongbe Attending Unavailabl e Latouf, Butros Primary Care Unavailable Latouf, Butros Primary Care Unavailable Oleghe OLS, Efewongbe Attending Unavailabl e Oleghe OLS, Efewongbe Attending Unavailabl e Latouf, Butros Primary Care Unavailable Oleghe OLS, Efewongbe Attending Unavailabl e Latouf, Butros Primary Care Unavailable Eric Montgomery Attending Unavailable Latouf, Butros Primary Care Unavailable Latouf, Butros Primary Care Unavailable TickChristina del rio NP Attending Unavailable Latouf, Butros Primary Care Unavailable Oleghe OLS, Efewongbe Attending Unavailabl e Latouf, Butros Primary Care Unavailable Oleghe OLS, Efewongbe Attending Unavailabl e Latouf, Butros Primary Care Unavailable Oleghe OLS, Efewongbe Attending Unavailabl e Latouf, Butros Primary Care Unavailable Oleghe OLS, Efewongbe Attending Unavailabl e Oleghe OLS, Efewongbe Attending Unavailabl e Latouf, Butros Primary Care Unavailable Oleghe OLS, Efewongbe Attending Unavailabl e Latouf, Butros Primary Care Unavailable Oleghe OLS, Efewongbe Attending Unavailabl e Latouf, Butros Primary Care Unavailable Latouf, Butros Primary Care Unavailable Oleghe OLS, Efewongbe Attending Unavailabl e Latouf, Butros Primary Care Unavailable Kacie Simon Attending Unavailable Latouf, Butros Referring Unavailable Latouf, Butros Primary Care Unavailable Oleghe, Efewongbe Attending Unavailable Latouf, Butros Primary Care Unavailable Christina Whipple NP Attending Unavailable Oleghe OLS, Efewongbe Attending Unavailabl e Oleghe OLS, Efewongbe Referring Unavailabl e Latouf, Butros Primary Care Unavailable Christina Zelaya Attending Unavailable Latouf, Butros Primary Care Unavailable Oleghe OLS, Efewongbe Attending Unavailabl e Latouf, Butros Primary Care Unavailable Oleghe OLS, Efewongbe Attending Unavailabl e Latouf, Butros Primary Care Unavailable Jesse Angel Attending Unavailable Latouf, Butros Primary Care Unavailable Latouf, Butros Primary Care Unavailable Friend, Sohail Attending Unavailable Latouf, Butros Referring Unavailable Christina Whipple NP Attending Unavailable Latouf, Butros Primary Care Unavailable Oleghe, Efewongbe Attending Unavailable Latouf, Butros Primary Care Unavailable Latouf, Butros Referring Unavailable Foster GARLAND, Lauren Bryan Attending Unavail able Latouf, Butros Primary Care Unavailable Oleghe, Efewongbe Attending Unavailable Latouf, Butros Primary Care Unavailable Christina Whipple NP Attending Unavailable Latouf, Butros Primary Care Unavailable Latouf, Butros Referring Unavailable Nasim Caballero Attending Unavailable Latouf, Butros Primary Care Unavailable Latouf, Butros Primary Care Unavailable Oleghe, Efewongbe Attending Unavailable Christina Whipple NP Attending Unavailable Latouf, Butros Primary Care Unavailable Oleghe, Efewongbe Attending Unavailable Latouf, Butros Primary Care Unavailable Latouf, Butros Referring Unavailable Kacie Simon Attending Unavailable Latouf, Butros Primary Care Unavailable Christina Whipple NP Attending Unavailable Latouf, Butmar Primary Care Unavailable Christina Whipple NP Attending Unavailable Latouf, Butmar Primary Care Unavailable Latouf, Butros Primary Care Unavailable Victor M Gastelum Attending UnavailERIC Sargent I Attending Unavailable DIANA SALMERON MD Consulting Unavailable ERIC MONTGOMERY I Admitting Unavailable ERIC MONTGOMERY I Primary Care Unavailable PROVIDER, UNKNOWN Consulting Unavailable PROVIDER, UNKNOWN Consulting Unavailable PROVIDER, UNKNOWN Consulting Unavailable Medications Current Medications Medication Drug Class(es) Dates Sig (Normalized) Sig (Original) acetaminophen 325 mg oral capsule (20 sources) Start: 12-14-2022 take 2 capsules by mouth every four hours as needed for pain Acetaminophen 325 mg capsule Active 650 mg PO Q4H as needed for pain December 14, 2022 12:00am Start: 12-14-2022 take 650 mg by mouth every four hours Acetaminophen Active 650 MG PO Q4H December 14, 2022 12:00am Start: 03-03-2022 End: 12-14-2022 take 1-10 tablets by mouth every four hours as needed for pain Acetaminophen 500 mg tablet Discontinued 325 mg PO Q4H as needed for Pain 1-10 Or Fever March 03, 2022 11:37am December 14, 2022 12:47am Start: 03-03-2022 End: 12-14-2022 take 325 mg by mouth every four hours Acetaminophen Discontinued 325 MG PO Q4H March 03, 2022 11:37am December 14, 2022 12:47am Start: 01-13-2022 acetaminophen Dose : 650 mg = 2 tab(s), Oral, q4h, PRN Pain, scale 1-3, 0 Refill(s) Start Date: 01/13/22 Status: Ordered Start: 06-03-2020 acetaminophen (TYLENOL) 325 mg tablet Take 650 mg by mouth. 06/03/2020 Active Start: 09-11-2019 End: 03-03-2022 take 1-10 tablets by mouth every eight hours as needed for pain Acetaminophen 500 MG tablet Discontinued 1000 mg PO Q8H as needed for Pain 1-10 Or Fever September 11, 2019 12:00am March 03, 2022 11:42am Start: 09-11-2019 End: 03-03-2022 take 1000 mg by mouth every eight hours Acetaminophen Discontinued 1000 MG PO Q8H September 11, 2019 12:00am March 03, 2022 11:42am Comment on above: Take 650 mg by mouth . albuterol 0.83 mg/ml inhalation solution (5 sources) beta2-Adrenergic Agonist Start: 025 take 2.5 mg by inhalation twice daily as needed Albuterol Sulfate 2.5 mg /3 mL (0.083 %) solution for nebulization Active 2.5 mg INHALATION TWICE A DAY as needed October 16, 2024 12:00am ALPRAZolam 0.25 mg disintegrating oral tablet (1 source) Benzodiazepine Start: ALPRAZolam (NIRAVAM) dissolvable tablet 0.25 mg amiodarone hydrochloride 200 mg oral tablet (20 sources) Antiarrhythmic Start: End: 024 take 1 tablet by mouth once daily Amiodarone 200 mg tablet Active 200 mg PO daily October 16, 2024 12:00am Comment on above: 200 mg once daily. amLODIPine 2.5 mg oral tablet (14 sources) Dihydropyridine Calcium Channel Nicole Start: 023 take 2.5 mg by mouth once daily Amlodipine Active 2.5 MG PO DAILY January 11, 2023 12:00am Start: 03-03-2022 End: 03-03-2022 take 1 tablet by mouth once daily Amlodipine 2.5 mg tablet Discontinued 2.5 mg PO DAILY March 03, 2022 12:00am March 03, 2022 11:51am Start: 01-13-2022 amLODIPine 5 m g oral tablet Dose : 5 mg = 1 tab(s), Oral, BID, # 60 tab(s), 2 Refill(s) Start Date: 01/13/22 Status: Ordered apixaban 2.5 mg oral tablet (20 sources) Factor Xa Inhibitor Start: 10-16-2024 take 1 tablet by mouth twice daily Apixaban (Eliquis) 2.5 mg tablet Active 2.5 mg PO TWICE A DAY October 16, 2024 8:09am Start: 01-13-2022 End: 10-16-2024 take 1 tablet by mouth once daily Apixaban (Eliquis) 2.5 mg tablet Discontinued 2.5 mg PO DAILY March 03, 2022 12:00am October 16, 2024 8:12am Start: 09-01-2021 End: 03-03-2022 take 1 tablet by mouth twice daily Apixaban (Eliquis) 5 mg tablet Discontinued 5 mg PO TWICE A DAY September 01, 2021 12:00am March 03, 2022 11:42am apixaban (ELIQUI S) 5 MG TABS tablet Take by mouth 2 times daily 0 Suspended Comment on above: 2.5 mg once daily. aspirin 81 mg delayed release oral tablet (20 sources) Platelet Aggregation Inhibitor, Nonsteroidal Anti-inflammatory Drug Start: 01-13-2022 aspirin 81 mg oral delayed release tablet Dose : 81 mg = 1 tab(s), Oral, qDayM, 0 Refill(s) Start Date: 01/13/22 Status: Ordered Start: 05-17-2021 End: 03-04-2024 take 1 tablet by mouth once daily Aspirin 81 mg Tablet Discontinued 81 mg PO DAILY May 17, 2021 1:00am March 04, 2024 11:25am Start: 07-12-2020 aspirin 81 mg chewable tablet Take 81 mg by mouth. 07/12/2020 Active Start: 10-12-2019 aspirin, enter ic coated (ASPIRIN, ENTERIC COATED) 81 mg EC tablet Aspirin Aspirin E.C. Active 81 MG DAILY@0800 October 12, 2019 7:37am 10-12-2019 [facility] ([id number]) 0 10/12/2019 Active Comment on above: Aspirin Aspirin E.C. Active 81 MG DAILY@0800 October 12, 2019 7:37am 10-12-2019 [facility] ([id number]) Take 81 mg by mouth. atorvastatin 40 mg oral tablet (20 sources) HMG-CoA Reductase Inhibitor Start: take 1 tablet by mouth once daily Atorvastatin 40 mg tablet Active 40 mg PO DAILY March 03, 2022 12:00am Start: 09-01-2021 End: 03-03-2022 take 1 tablet by mouth at bedtime Atorvastatin 20 mg tablet Discontinued 20 mg PO AT BEDTIME September 01, 2021 12:00am March 03, 2022 11:38am Start: 08-19-2019 atorvastatin ( LIPITOR) 40 mg tablet Take 20 mg by mouth once daily. 08/19/2019 Active Start: 08-19-2019 End: 09-01-2021 take 1 tablet by mouth at bedtime Atorvastatin 40 MG tablet Discontinued 40 mg PO AT BEDTIME September 11, 2019 12:00am September 01, 2021 2:18pm CHOLESTEROL Comment on above: Take 40 mg by mouth once daily. Take 20 mg by mouth once daily. calcium chloride 0.0014 meq/ml / potassium chloride 0.004 meq/ml / sodium chloride 0.103 meq/ml / sodium lactate 0.028 meq/ml injectable solution (1 source) Start: 02-09-2021 lactated ringers infusion carvedilol 3.125 mg oral tablet (20 sources) alpha-Adrenergic Nicole, beta-Adrenergic Nicole Start: 05-16-2022 Carvedilol (Coreg) 3.125 mg tablet Active 3.125 mg PO TWICE A DAY May 16, 2022 1:00am must administer with a meal/food, Hold if SBP less than 100 or HR less than 55 Start: 03-03-2022 End: 05-16-2022 take 1 tablet by mouth twice daily at mealtime Carvedilol (Coreg) 3.125 mg tablet Discontinued 3.125 mg PO TWICE A DAY March 03, 2022 12:00am May 16, 2022 10:31am must administer with a meal/food Comment on above: carvedilol 3.125 mg tablet 1 tab po BID Cholestyramine Resin (8 sources) Bile Acid Sequestrant Start: take 1 dose by mouth once daily Cholestyramine (With Sugar) 4 gram powder Active 4 g PO daily 368.76 1 March 04, 2024 12:00am administer w/meal; avoid other meds within 1hr before or 4-6hr after dose Start: 03-04-2024 take 1 dose by mouth once daily Cholestyramine (With Sugar) 4 gram powder Active 4 g PO daily 368.76 March 04, 2024 12:00am administer w/meal; avoid other meds within 1hr before or 4-6hr after dose citalopram 10 mg oral tablet (20 sources) Serotonin Reuptake Inhibitor Start: 03-30-2020 End: 03-04-2024 take 1 tablet by mouth once daily citalopram hydrobromide (CELEXA) 10 mg tablet Take 10 mg by mouth once daily. 03/30/2020 Active take 10 mg by mouth once daily c italopram (CELEXA) 20 MG tablet Take 10 mg by mouth daily 0 Suspended Comment on above: Take 10 mg by mouth once daily. colestipol hydrochloride 1000 mg oral tablet (16 sources) Bile Acid Sequestrant Start: End: Colestipol 1 gram tablet Active 2 g PO daily 60 2 June 06, 2024 4:54pm 1 ml diphenhydrAMINE hydrochloride 50 mg/ml cartridge (1 source) Histamine-1 Receptor Antagonist Start: End: diphenhydrAMINE (BENADRYL) injection 12.5 mg empagliflozin 25 mg oral tablet (20 sources) Sodium-Glucose Cotransporter 2 Inhibitor Start: take 1 tablet by mouth once daily Empagliflozin (Jardiance) 25 mg tablet Active 25 mg PO DAILY October 16, 2024 12:00am Start: 03-03-2022 End: 10-16-2024 take 1 tablet by mouth once daily Empagliflozin (Jardiance) 10 mg tablet Discontinued 25 mg PO DAILY December 14, 2022 12:00am October 16, 2024 8:09am Start: 01-11-2022 Jardiance 10 m g oral tablet Dose : 10 mg = 1 tab(s), Oral, qAM, 0 Refill(s) Start Date: 01/11/22 Status: Ordered Comment on above: Jardiance 25 mg tabl et 1 tab po daily 2 ml fentaNYL 0.05 mg/ml injection (2 sources) Opioid Agonist Start: 02-09-2021 fentaNYL (SUBLIMAZE) injection 50 mcg Start: 02-09-2021 fentaNYL (SUBL IMAZE) injection 25 mcg glipiZIDE er 10 mg 24 hr extended release oral tablet (20 sources) Sulfonylurea Start: 10-16-2024 take 1 tablet by mouth once daily Glipizide 10 mg tablet extended release 24hr Active 10 mg PO DAILY October 16, 2024 12:00am Start: 02-25-2023 glipiZIDE (GLU COTROL XL) 2.5 mg 24 hr tablet 10 mg. 02/25/2023 Active Start: 01-11-2023 End: 10-16-2024 take 1 tablet by mouth once daily Glipizide 2.5 mg tablet extended release 24hr Discontinued 5 mg PO DAILY January 11, 2023 12:00am October 16, 2024 8:12am 1 ml HYDROmorphone hydrochloride 1 mg/ml cartridge (2 sources) Opioid Agonist Start: 02-09-2021 HYDROmorphone (DILAUDID) injection 0.5 mg Start: 02-09-2021 HYDROmorphone (DILAUDID) injection 0.25 mg 3 ml insulin aspart, human 100 unt/ml pen injector (20 sources) Insulin Analog Start: 02-15-2023 Insulin Aspart U-100 (Novolog Flexpen U-100 Insulin) 100 unit/mL (3 mL) insulin pen Active 1 sliding scale dose SC Use as Directed February 15, 2023 12:00am Start: 08-19-2022 NOVOLOG U-100 INSULIN ASPART 100 unit/mL 08/19/2022 Active insulin aspart U -100 (NOVOLOG) 100 unit/mL Novolog U-100 Insulin aspart 100 unit/mL subcutaneous solution sliding scale Active Comment on above: Novolog U-100 Insuli n aspart 100 unit/mL subcutaneous solution sliding scale insulin lispro 100 unt/ml injectable solution (20 sources) Insulin Analog Start: 01-11-2022 HumaLOG 100 units/mL subcutaneous solution Give 0-10 units/dose, Subcutaneous, achs, 0 Refill(s) Start Date: 01/11/22 Status: Ordered Start: 02-09-2021 insulin lispro (HUMALOG) injection vial 0-20 Units Start: 05-18-2020 End: 01-11-2023 Insulin Lispro 100 UNIT/ML i nsulin pen Discontinued 10 U SC 3 TIMES DAILY WITH MEALS May 18, 2020 5:08pm January 11, 2023 1:03pm DM Start: 10-12-2019 End: 05-18-2020 inject 15 [IU] by subcutaneous injection at dinner Insulin Lispro 100 UNIT/ML insulin pen Discontinued 15 U subcut WITH DINNER 0 October 12, 2019 12:00am May 18, 2020 5:08pm insulin lispro ( HUMALOG KWIKPEN INSULIN) 100 unit/mL Inject 32 Units subcutaneously two times a day. Active insulin lispro ( HUMALOG KWIKPEN INSULIN) 100 unit/mL Inject 15 Units subcutaneously three times daily before meals. 0 Active insulin lispro ( HUMALOG) 100 UNIT/ML injection vial Inject 18 Units into the skin 2 times daily 0 Suspended Comment on above: Inject 15 Units subc utaneously three times daily before meals. Inject 32 Units subc utaneously twice daily. Inject subcutaneousl y before meals and at bedtime. SSI- if BS- 201-250= 3 units If BS- 251-300= 6 units If BS- 301-350= 9 units If BS- 351-400= 12 units Call MD for BS <70>400 iv contrast (will be provided with radiology test) (11 sources) Start: 10-04-2024 iv contrast (will be provided with radiology test) Indications: Gross hematuria CT Urogram WO/W Inject, intravenously, once for 1 dose.No IV access, insert saline lock prior to the beginning of sedation, infusion, injection of imaging exam. Discontinue saline lock post exam. If Pt. has a central line or IVAD, may access for administration according to line specific nursing protocol. Once exam is complete flush line and de-access according to line specific nursing protocol in the CT contrast administration guidelines link. 1 each 10/04/2024 Active Start: 06-18-2024 iv contrast (w ill be provided with radiology test) CT Urogram WO/W Inject, intravenously, once for 1 dose.No IV access, insert saline lock prior to the beginning of sedation, infusion, injection of imaging exam. Discontinue saline lock post exam. If Pt. has a central line or IVAD, may access for administration according to line specific nursing protocol. Once exam is complete flush line and de-access according to line specific nursing protocol in the CT contrast administration guidelines link. 1 Each 06/18/2024 Active labetalol hydrochloride 5 mg/ml injectable solution (1 source) beta-Adrenergic Nicole Start: 02-09-2021 labetalol (NORMODYNE;TRANDATE) injection 5 mg levothyroxine sodium 0.075 mg oral tablet (20 sources) l-Thyroxine Start: 10-16-2024 take 1 tablet by mouth once daily Levothyroxine 75 mcg tablet Active 75 ug PO DAILY October 16, 2024 12:00am Start: 09-01-2021 End: 10-16-2024 take 1 tablet by mouth once daily Levothyroxine 50 mcg tablet Discontinued 50 ug PO DAILY September 01, 2021 12:00am October 16, 2024 8:10am Start: 07-12-2021 levothyroxine 50 mcg (0.05 mg) oral tablet Dose : 50 mcg = 1 tab(s), Oral, qAM Start Date: 07/12/21 Status: Ordered Start: 08-19-2019 take 2 tablets by mo uth once daily levothyroxine (SYNTHROID) 25 mcg tablet Take 50 mcg by mouth once daily. 08/19/2019 Active Start: 08-19-2019 End: 09-01-2021 take 1 tablet by mouth once daily Levothyroxine 25 MCG tablet Discontinued 25 ug PO DAILY September 11, 2019 12:00am September 01, 2021 8:29am thyroid take 1 tablet by brayan th once daily levothyroxine (SYNTHROID) 50 MCG tablet Take 50 mcg by mouth Daily 0 Suspended Comment on above: Take 25 mcg by mouth once daily. Take 50 mcg by mouth once daily. 1 ml meperidine hydrochloride 25 mg/ml cartridge (1 source) Opioid Agonist Start: 02-09-2021 meperidine (DEMEROL) injection 12.5 mg Metoprolol (20 sources) beta-Adrenergic Nicole Start: 01-13-2022 metoprolol Dose : 6.25 mg =, Oral, BIDM, 0 Refill(s) Start Date: 01/13/22 Status: Ordered Start: 01-13-2022 End: 01-13-2022 metoprolol tartrate (Lopress or) Start: 01/13/22 8:00:00 EDT, Dose = 6.25 mg, = 0.25 tab(s), Oral, Hold if SBP (mmHg) Start Date: 01/13/22 Stop Date: 01/13/22 Status: Completed Start: 01-12-2022 End: 01-12-2022 metoprolol tartrate (Lopress or) Start: 01/12/22 17:00:00 EDT, Dose = 6.25 mg, = 0.25 tab(s), Oral, Hold if SBP (mmHg) Start Date: 01/12/22 Stop Date: 01/12/22 Status: Completed Start: 01-12-2022 End: 01-12-2022 metoprolol tartrate (Lopress or) Start: 07/27/22 8:00:00 EDT, Dose = 6.25 mg, = 0.25 tab(s), Oral, Hold if SBP (mmHg) Start Date: 01/12/22 Stop Date: 01/12/22 Status: Completed Start: 09-01-2021 End: 03-03-2022 take 1 tablet by mouth once daily Metoprolol Succinate 50 mg tablet extended release 24 hr Discontinued 50 mg PO DAILY September 01, 2021 12:00am March 03, 2022 11:41am Start: 10-12-2019 End: 09-01-2021 take 1 tablet by mouth once daily Metoprolol Succinate 25 MG tablet Discontinued 25 mg PO DAILY May 18, 2020 5:08pm September 01, 2021 8:27am take 1 tablet by brayan th once daily metoprolol succinate ER (TOPROL XL) 25 mg 24 hr tablet Take 50 mg by mouth once daily. Active Comment on above: Take 25 mg by mouth once daily. Take 50 mg by mouth once daily. multivit-min/iron/folic acid/K (ADULTS MULTIVITAMIN ORAL) (13 sources) multivit-min/iro n/folic acid/K (ADULTS MULTIVITAMIN ORAL) Take by mouth. Active multivit-min/iro n/folic acid/K (ADULTS MULTIVITAMIN ORAL) Take by mouth. 0 Active Comment on above: Take by mouth. Multivitamin preparation (2 sources) Start: 12-15-19 take 1 tablet by mouth once daily Multivitamin Active 1 TABLET PO DAILY December 14, 2022 12:00am Multivitamin tablet (8 sources) Start: 12-15-19 Multivitamin tablet Active 1 {tbl} PO DAILY December 14, 2022 12:00am mupirocin 0.02 mg/mg topical ointment (8 sources) RNA Synthetase Inhibitor Antibacterial Start: 01-15-20 mupirocin (BACTROBAN) 2 % ointment 01/14/2023 Active nystatin 587692 unt/ml topical cream (8 sources) Polyene Antifungal Start: 03-04-20 Nystatin 100,000 unit/gram cream Active 1 NMA TOPICAL daily March 04, 2024 12:00am ondansetron 4 mg oral tablet (17 sources) Serotonin-3 Receptor Antagonist Start: 05-30-20 take 1 tablet by mouth every four hours for nausea and vomiting Ondansetron Hcl 4 mg tablet Active 4 mg PO Q4H as needed for nausea and vomiting May 30, 2023 1:00am give 1st dose 30min before emetogenic chemo Start: 02-15-2023 End: 05-25-2023 take 1 tablet by mouth every six hours Ondansetron Hcl 4 mg tablet Discontinued 4 mg PO EVERY 6 HOURS February 15, 2023 12:00am May 25, 2023 12:44pm Start: 02-09-2021 End: 02-09-2021 ondansetron (ZOFRAN) injecti on 4 mg ondansetron (ZOFRAN-ODT) disintegrating tablet 4 mg (1 source) Start: 02-09-2021 ondansetron (Z OFRAN-ODT) disintegrating tablet 4 mg oxyCODONE (11 sources) Opioid Agonist Start: 02-09-2021 End: 02-09-2021 oxyCODONE (ROXICODONE) immediate release tablet 5 mg Start: 09-11-2019 End: 10-12-2019 take 1 tablet by mouth every six hours as needed for pain Oxycodone 5 MG tablet Discontinued 5 mg PO EVERY 6 HOURS NEEDED as needed for pain September 11, 2019 12:00am October 12, 2019 7:45am pantoprazole 40 mg delayed release oral tablet (18 sources) Proton Pump Inhibitor Start: 01-11-2023 End: 03-04-[address] (PROTONIX) 40 mg tablet 02/25/2023 Active polyethylene glycol 3350 91691 mg powder for oral solution (20 sources) Osmotic Laxative Start: 12-14-2022 Polyethylene Glycol 3350 (Miralax) 17 gram/dose Powder Active 17 g PO DAILY as needed for constipation December 14, 2022 12:00am Start: 01-13-2022 polyethylene g lycol 3350 Oral, qDay, PRN Constipation, 0 Refill(s) Start Date: 01/13/22 Status: Ordered Comment on above: Take 17 g by mouth o nce daily. Dissolve dose in 4 - 8 ounces of liquid and take as directed. microencapsulated potassium chloride 20 meq extended release oral tablet (20 sources) Start: take 1 tablet by mouth once daily Potassium Chloride 20 mEq tablet,ER particles/crystal s Active 20 meq PO daily March 04, 2024 12:00am Start: 09-01-2021 End: 03-03-2022 take 1 tablet by mouth once daily Potassium Chloride 20 mEq tablet,ER particles/crystals Discontinued 20 meq PO DAILY September 01, 2021 12:00am March 03, 2022 11:41am take 20 mEq by mouth once daily potassium chloride 20 mEq TbER Take 20 mEq by mouth once daily. Active potassium chlori de ER (K-DUR, KLOR-CON) 20 mEq tablet Take 20 mEq by mouth twice daily. 0 Active take 20 mEq by mouth once daily potassium chloride (KLOR-CON) 20 MEQ packet Take 20 mEq by mouth daily 0 Suspended Comment on above: Take 20 mEq by mouth twice daily. 1 ml promethazine hydrochloride 25 mg/ml injection (1 source) Phenothiazine Start: 2020 End: 2020 promethazine (PHENERGAN) injection 6.25 mg sacubitril 24 mg / valsartan 26 mg oral tablet (20 sources) Angiotensin 2 Receptor Nicole Start: 2021 End: 2022 Sacubitril-Valsartan (Entresto) 24-26 mg tablet Active 1 {tbl} PO TWICE A DAY January 11, 2023 12:00am Comment on above: Entresto 24 mg-26 mg tablet 1 tab po BID 1000 ml sodium chloride 9 mg/ml injection (9 sources) Start: 2024 End: 2024 inject 1 dose intravenously once 0.9 % sodium chloride (NACL 0.9%) infusion Indications: Gross hematuria Inject 150 mL/hr intravenously one time only for 1 dose. Administer at rate defined per CT contrast administration specifications. To be provided with radiology test. 1 each 10/04/2024 10/04/2024 Active Start: 06-18-2024 End: 06-18-2024 inject 1 dose intravenously once 0.9 % sodium chloride (NACL 0.9%) infusion Inject 150 mL/hr intravenously one time only for 1 dose. Administer at rate defined per CT contrast administration specifications. To be provided with radiology test. 1 Each 06/18/2024 06/18/2024 Active Start: 02-09-2021 take 1 dose intraven ously twice daily 5-40 mL, Intravenous, EVERY 12 HOURS SCHEDULED (2 times per day), First dose on Mon02/09/21 at 1130 For Line Patency: Peripheral IV = 5 mL; Midline or Central Line = 10 mL/lumen. If following IV push medication, administer flush at same rate as the IV push. Flush volume is determined by type of infusion therapy being given. For non-viscous solutions use: Peripheral IV = 5 mL Midline or Central Line = 10 mL/lumen For viscous solutions (i.e. blood components, parenteral nutrition, contrast media, or after obtaining blood sample) use: Peripheral IV = 10 mL Midline or Central Line = 20 mL/lumen Post-op Start: 02-09-2021 take 25 mL intraveno usly every hour as needed 25 mL, Intravenous, at 100 mL/hr, PRN, If patient receiving piggyback infusions without ordered maintenance IV fluids or with frequent/long duration piggyback infusions, Starting on Mon02/09/21 at 1100 Administer at the same rate as the piggyback being infused. Post-op Start: 02-09-2021 take 5-40 mL intravenously onc e 5-40 mL, Intravenous, PRN, Line Care, Starting on Mon02/09/21 at 1100 After every IV line use Post-op Start: 02-09-2021 End: 02-09-2021 0.9 % sodium chloride bolus Start: 02-09-2021 sodium chlorid e flush 0.9 % injection 5-40 mL Start: 02-09-2021 0.9 % sodium c hloride infusion TRULICITY 3 mg/0.5 mL pen injector (1 source) Start: 01-13-2025 TRULICITY 3 mg /0.5 mL pen injector 3 mg. 01/13/2025 Active vit C,T-Rp-imeum-lutein-zeax an (PRESERVISION AREDS-2) 250-90-40-1 mg (12 sources) Start: 12-09-2020 vit C,E-Zn-helicopter repairer dy-ofqjth-ubhstl (PRESERVISION AREDS-2) 250-90-40-1 mg Take 1 Each by mouth. 12/09/2020 Active Start: 12-09-2020 vit C,E-Zn-helicopter repairer pd-pfycfj-znjrrt (PRESERVISION AREDS-2) 250-90-40-1 mg Take 1 Each by mouth. 0 12/09/2020 Active Comment on above: Take 1 Each by mouth . Completed/Discontinued Medications Medication Drug Class(es) Dates Sig (Normalized) Sig (Original) acetaminophen 325 mg / HYDROcodone bitartrate 5 mg oral tablet (10 sources) Opioid Agonist Start: 11-27-2019 End: 12-02-2019 Hydrocodone-Acetami nophen 1 EACH tablet Discontinued 1 {tbl} PO EVERY 6 HOURS NEEDED as needed for Pain 7 5 0 November 27, 2019 December 01, 2019 12:00am December 02, 2019 12:02am Non-pressure chronic ulcer of right lower leg with fat layer exposed Start: 11-27-2019 End: 12-02-2019 take 1 tablet by mouth every six hours as needed Hydrocodone-Acetaminophen Discontinued 1 TABLET PO EVERY 6 HOURS NEEDED 7 5 November 27, 2019 December 02, 2019 12:02am albuterol 0.833 mg/ml / ipratropium bromide 0.167 mg/ml inhalation solution (1 source) Anticholinergic, beta2-Adrenergic Agonist take 1 dose by inhalation every six hours as needed ipratropium-albuterol (DUONEB) 0.5-2.5 (3) MG/3ML SOLN nebulizer solution Inhale 1 vial into the lungs every 6 hours as needed for Shortness of Breath 0 Suspended amoxicillin 875 mg / clavulanate 125 mg oral tablet (20 sources) Penicillin-class Antibacterial Start : 12-17 End: 12-21 Amoxicillin-Pot Clavulanate 875-125 mg tablet Discontinued 1 {tbl} PO TWICE A DAY 8 December 17, 2022 12:00am December 20, 2022 12:00am December 21, 2022 12:03am Start: 12-17-2022 End: 12-21-2022 take 1 tablet by mouth twice daily Amoxicillin-Pot Clavulanate Discontinued 1 TABLET PO TWICE A DAY 8 December 17, 2022 12:00am December 21, 2022 12:03am Start: 11-27-2019 End: 12-07-2019 Amoxicillin-Pot Clavulanate 1 EACH tablet Discontinued 1 {tbl} PO TWICE A DAY November 27, 2019 12:00am December 06, 2019 12:00am December 07, 2019 12:02am Cellulitis of right lower extremity Cellulitis of right lower limb Start: 11-27-2019 End: 12-07-2019 take 1 tablet by mouth twice daily Amoxicillin-Pot Clavulanate Discontinued 1 TABLET PO TWICE A DAY 07 04November 27, 2019 12:00December 07, 2019 12:02am ascorbic acid 113 mg / copper gluconate 0.4 mg / docosahexaenoic acid 87.5 mg / eicosapentaenoic acid 163 mg / lutein 2.5 mg / tocopherol acetate 100 unt / zeaxanthin 0.5 mg / zinc oxide 17.4 mg oral capsule (1 source) Vitamin C Start: 12-09-2020 take 1 capsule by mouth twice daily Multiple Vitamins-Minerals (PRESERVISION AREDS 2) CAPS Take 1 each by mouth 2 times daily 60 capsule 5 12/09/2020 Suspended ascorbic acid 250 mg / folic acid 1 mg / iron carbonyl 100 mg / vitamin b12 0.025 mg oral tablet (3 sources) Vitamin B12, Vitamin C Start: 01-13-2022 End: 01-26-2022 Vitamin B Complex with C, Folic Acid, and Iron oral tablet Oral, qDay, 0 Refill(s) Start Date: 01/13/22 Stop Date: 01/26/22 Status: Ordered Aspir 81 (10 sources) Start: 09-11-2019 End: 10-12-2019 Aspir 81 Discontinued 1 {tbl} PO DAILY September 11, 2019 12:00am October 12, 2019 7:37am heart health Start: 09-11-2019 End: 10-12-2019 Aspir 81 Discontinued 1 {tbl } PO DAILY September 11, 2019 12:00am October 12, 2019 7:37am Start: 09-11-2019 End: 10-12-2019 take 1 tablet by mouth once daily Aspir 81 Discontinued 1 TABLET PO DAILY September 11, 2019 12:00am October 12, 2019 7:37am benoxinate hydrochloride 4 mg/ml / fluorescein sodium 2.5 mg/ml ophthalmic solution (1 source) Diagnostic Dye Start: 09-01-2022 End: 09-02-2022 fluorescein-benoxinate 0.25-0.4 % 1 Drop (FLURESS) cholecalciferol 0.025 mg oral capsule (11 sources) Vitamin D Start: 05-18-2020 End: 03-04-2024 Cholecalciferol (Vitamin D3) 25 MCG capsule Discontinued 1000 U PO DAILY May 18, 2020 1:00am March 04, 2024 11:25am SUPPLEMENT Start: 05-18-2020 take 1000 [IU] by mo [facility] once daily Cholecalciferol (Vitamin D3) Active 1000 UNIT PO DAILY May 18, 2020 1:00am Cholecalciferol, Vitamin D3, (VITAMIN D) 25 mcg (1,000 unit) cap Take 1,000 Units by mouth once daily. 0 Active Comment on above: Take 1,000 Units by mouth once daily. collagenase 0.25 unt/mg topical ointment (11 sources) Collagen-specific Enzyme Start: 0 End: 2 Collagenase Clostridium Histo. 1 APPLIC ointment Discontinued 1 NMA TP DAILY May 18, 2020 1:00am September 01, 2021 8:30am WOUND Comment on above: apply SULLY CRUZ TO ULCER DAILY docusate sodium 50 mg / sennosides, [facility] 8.6 mg oral tablet (1 source) take 1 tablet by mouth twice daily sennosides-docusate sodium (SENOKOT-S) 8.6-50 MG tablet Take 1 tablet by mouth 2 times daily 0 Suspended famotidine 20 mg oral tablet (1 source) Histamine-2 Receptor Antagonist Start: 1 End: 1 famotidine (PEPCID) tablet 20 mg ferrous sulfate 325 mg oral tablet (1 source) take 1 tablet by mouth once daily at breakfast ferrous sulfate (IRON 325) 325 (65 Fe) MG tablet Take 325 mg by mouth daily (with breakfast) 0 Suspended folic acid 1 mg oral tablet (1 source) take 1 tablet by mouth once daily folic acid (FOLVITE) 1 MG tablet Take 1 mg by mouth daily 0 Suspended furosemide 40 mg oral tablet (11 sources) Loop Diuretic Start: 2 End: 2 take 1 tablet by mouth twice daily Furosemide 40 mg tablet Discontinued 40 mg PO TWICE A DAY September 01, 2021 12:00am Genny 15th, 2022 11:42am take 1 tablet by mouth twice jyoti ly furosemide (LASIX) 40 MG tablet Take 40 mg by mouth 2 times daily 0 Suspended gabapentin 600 mg oral tablet (20 sources) Anti-epileptic Agent Start: 05-18-2020 End: 03-03-2022 take 1 tablet by mouth twice daily Gabapentin 600 MG tablet Discontinued 600 mg PO TWICE A DAY May 18, 2020 5:08pm March 03, 2022 11:41am NERVE PAIN Start: 10-12-2019 End: 05-18-2020 take 1 tablet by mouth once daily Gabapentin 600 MG tablet Discontinued 600 mg PO DAILY@2000 0 October 12, 2019 12:00am May 18, 2020 5:08pm Start: 09-11-2019 End: 10-12-2019 Gabapentin 100 MG capsule Discontinued 1 NMA PO EVERY 8 HOURS September 11, 2019 12:00am October 12, 2019 7:40am nerve pain take 1 capsule by mo uth once daily for pain gabapentin (NEURONTIN) 100 MG capsule Take 100 mg by mouth daily. For phantom limb pain. 0 Suspended Comment on above: Take 600 mg by mouth twice daily. glimepiride 4 mg oral tablet (10 sources) Sulfonylurea Start: 0 End: 0 take 4 mg by mouth twice daily Glimepiride Discontinued 4 mg PO TWICE A DAY September 11, 2019 12:00am October 12, 2019 7:46am glucose 12 hr guaiFENesin 600 mg extended release oral tablet (1 source) guaiFENesin (MUC INEX) 600 MG extended release tablet Take 1,200 mg by mouth 2 times daily 0 Suspended hydrALAZINE (4 sources) Arteriolar Vasodilator Start: 2 End: 2 hydrALAZINE Start: 01/10/22 1:39:00 EDT, Dose = 50 mg, = 1 tab(s), Oral, Once, PRN, Blood pressure control, 01/10/22 1:39:00 EDT Start Date: 01/10/22 Stop Date: 01/10/22 Status: Completed Start: 01-09-2022 End: 01-13-2022 hydrALAZINE Start: 01/09/22 23:37:00 EDT, Dose = 25 mg, = 1 tab(s), Oral, q6h, PRN, Blood pressure control, repeat in 30 minutes if needed, 01/09/22 23:37:00 EDT Start Date: 01/09/22 Stop Date: 01/13/22 Status: Discontinued Start: 02-09-2021 hydrALAZINE (A PRESOLINE) injection 5 mg take 1 tablet by brayan th three times daily hydrALAZINE (APRESOLINE) 10 MG tablet Take 10 mg by mouth 3 times daily 0 Suspended 3 ml insulin glargine 100 unt/ml pen injector (20 sources) Insulin Analog Start: 05-18-2020 End: 01-11-2023 Insulin Glargine 100 UNITS/ML insulin pen Discontinued 10 U SC AT BEDTIME May 18, 2020 5:08pm January 11, 2023 1:03pm DM Start: 05-18-2020 End: 01-11-2023 Insulin Glargine Discontinue d 10 UNIT SC AT BEDTIME May 18, 2020 5:08pm January 11, 2023 1:03pm Start: 03-29-2020 TOUJEO MAX U-3 00 SOLOSTAR 300 unit/mL (3 mL) inpn Inject 70 Units subcutaneously daily at bedtime. 03/29/2020 Active Start: 03-29-2020 inject 30 [IU] by li bcutaneous injection once daily at bedtime TOUJEO MAX U-300 SOLOSTAR 300 unit/mL (3 mL) inpn Inject 30 Units subcutaneously daily at bedtime. 0 03/29/2020 Active Start: 10-12-2019 End: 05-18-2020 inject 20 [IU] by subcutaneous injection at bedtime Insulin Glargine 100 UNITS/ML insulin pen Discontinued 20 U subcut AT BEDTIME 0 October 12, 2019 12:00am May 18, 2020 5:08pm Start: 10-12-2019 End: 05-18-2020 inject 20 [IU] by subcutaneous injection at bedtime Insulin Glargine Discontinued 20 UNITS subcut AT BEDTIME October 12, 2019 12:00am May 18, 2020 5:08pm insulin glargine (LANTUS) 100 UNIT/ML injection vial Inject 34 Units into the skin daily 0 Suspended Comment on above: Inject 30 Units subc utaneously daily at bedtime. Inject 70 Units subc utaneously daily at bedtime. 24 hr isosorbide mononitrate 30 mg extended release oral tablet (20 sources) Nitrate Vasodilator Start: 09-02-19 End: 03-03-20 take 1 tablet by mouth once daily, then take 2 tablets by mouth every twenty-four hours Isosorbide Mononitrate 30 mg tablet extended release 24 hr Discontinued 15 mg PO DAILY September 01, 2021 12:00am March 03, 2022 11:41am take 1 tablet by brayan th once daily, then take 1 tablet by mouth every twenty-four hours isosorbide mononitrate ER (IMDUR) 30 mg 24 hr tablet Take 30 mg by mouth once daily. Active take 0.5 tablet by mouth once da neo isosorbide mononitrate (IMDUR) 30 MG extended release tablet Take 30 mg by mouth daily 1/2 tablet daily 0 Suspended Comment on above: Take 30 mg by mouth once daily. ketorolac tromethamine 5 mg/ml ophthalmic solution (17 sources) Nonsteroidal Anti-inflammatory Drug, Cyclooxygenase Inhibitor Start: 05-25-2023 End: 03-04-2024 Ketorolac 0.5 % drops Discontinued 1 NMA OPHTHALMIC .4XMay 25, 2023 1:00am March 04, 2024 11:25am Start: 03-01-2023 keTORolac (ACU LAR) 0.5 % ophthalmic solution 03/01/2023 Active Start: 02-07-2021 End: 03-09-2021 take 1 drop(s) into the eye(s) four times daily ketorolac (ACULAR) 0.5 % ophthalmic solution Place 1 drop into the right eye 4 times daily 1 Bottle 1 02/07/2021 03/09/2021 Suspended lidocaine hydrochloride 0.02 mg/mg topical gel (3 sources) Antiarrhythmic, Amide Local Anesthetic Start: 01-14-2025 End: 01-14-2025 lidocaine urojet 2 % 11 mL topical gel (GLYDO) Start: 01-14-2025 End: 01-14-2025 11 mL, URETHRAL, ONCE (UP TO 30 DAYS AMB), 1 dose, On Mon01/14/25 at 1100 Start: 02-09-2021 End: 02-09-2021 lidocaine PF 1 % injection 1 mL lisinopril 5 mg oral tablet (20 sources) Angiotensin Converting Enzyme Inhibitor Start: 05-16-2022 End: 05-16-2022 take 4 tablets by mouth once daily Lisinopril 5 mg tablet Discontinued 20 mg PO DAILY May 16, 2022 10:30am May 16, 2022 11:00am Start: 05-16-2022 End: 05-16-2022 take 20 mg by mouth once daily Lisinopril Discontinued 20 MG PO DAILY May 16, 2022 10:30am May 16, 2022 11:00am Start: 03-03-2022 End: 05-16-2022 take 1 tablet by mouth once daily Lisinopril 5 mg tablet Discontinued 5 mg PO DAILY March 03, 2022 12:00am May 16, 2022 10:31am Start: 01-13-2022 lisinopril 20 mg oral tablet Dose : 40 mg = 2 tab(s), Oral, qDay, 0 Refill(s) Start Date: 01/13/22 Status: Ordered Start: 08-21-2019 End: 03-03-2022 take 1 tablet by mouth once daily lisinopril (ZESTRIL, PRINIVIL) 10 mg tablet Take 10 mg by mouth once daily. 08/21/2019 Active Comment on above: Take 10 mg by mouth once daily. magnesium hydroxide 80 mg/ml oral suspension (1 source) take 30 mL by mouth once daily as needed for constipation magnesium hydroxide (MILK OF MAGNESIA) 400 MG/5ML suspension Take 30 mLs by mouth daily as needed for Constipation 0 Suspended magnesium oxide 400 mg oral tablet (1 source) magnesium oxide (MAG-OX) 400 MG tablet Take 800 mg by mouth 2 times daily 0 Suspended metFORMIN hydrochloride 500 mg oral tablet (20 sources) Biguanide Start: 03-03-20 End: 12-15-19 take 1 tablet by mouth twice daily Metformin 500 mg tablet Discontinued 500 mg PO TWICE A DAY March 03, 2022 12:00am December 14, 2022 12:47am Start: 01-11-2022 MetFORMIN (Eqv -Glucophage XR) 500 mg oral tablet, EXTENDED RELEASE Dose : 500 mg = 1 tab(s), Oral, BID, 0 Refill(s) Start Date: 01/11/22 Status: Ordered Start: 08-19-2019 End: 03-03-2022 take 1 tablet by mouth twice daily Metformin 1,000 MG tablet Discontinued 1000 mg PO TWICE A DAY September 11, 2019 12:00am March 03, 2022 11:40am DM Comment on above: Take 1,000 mg by [facility] twice daily. miconazole nitrate 0.02 mg/mg topical powder (8 sources) Azole Antifungal Start: 3 End: 4 Miconazole Nitrate (Antifungal (Miconazole)) 2 % powder Discontinued 1 NMA TOPICAL TWICE A DAY as needed for EXCORIATION May 30, 2023 1:00am March 04, 2024 11:25am ofloxacin 3 mg/ml ophthalmic solution (1 source) Quinolone Antimicrobial Start: 1 End: 1 take 1 drop(s) into the eye(s) four times daily ofloxacin (OCUFLOX) 0.3 % solution Place 1 drop into the right eye 4 times daily 1 Bottle 0 02/07/2021 03/09/2021 Suspended omeprazole 40 mg delayed release oral capsule (11 sources) Proton Pump Inhibitor Start: 2 End: 3 take 1 capsule by mouth once daily Omeprazole 40 mg capsule,delayed release(DR/EC) Discontinued 40 mg PO DAILY March 03, 2022 12:00am January 11, 2023 1:06pm take 2 capsules by mouth once da neo omeprazole (PRILOSEC) 20 MG delayed release capsule Take 40 mg by mouth daily 0 Suspended phenylephrine hydrochloride 25 mg/ml ophthalmic solution (2 sources) alpha-1 Adrenergic Agonist Start: 09-01-2022 End: 09-02-2022 PHENYLephrine 2.5 % 1 Drop (AK-DILATE, DARRION-SYNEPHRINE) Start: 02-09-2021 End: 02-09-2021 phenylephrine (MYDFRIN) 2.5 % ophthalmic solution 1 drop pioglitazone 30 mg oral tablet (10 sources) Peroxisome Proliferator Receptor alpha Agonist, Peroxisome Proliferator Receptor gamma Agonist, Thiazolidinedione Start: 09-11-2019 End: 10-12-2019 take 1 tablet by mouth once daily Pioglitazone 30 MG tablet Discontinued 30 mg PO DAILY September 11, 2019 12:00am October 12, 2019 7:46am Check with primary doctor prednisoLONE acetate 10 mg/ml ophthalmic suspension (1 source) Corticosteroid Start: 02-09-2021 End: 03-11-2021 prednisoLONE acetate (PRED FORTE) 1 % ophthalmic suspension Place 1 drop into the right eye 4 times daily 1 Bottle 1 02/09/2021 03/11/2021 Suspended predniSONE 5 mg oral tablet (20 sources) Start: 03-03-2022 End: 12-14-2022 take 2 tablets by mouth once daily Prednisone 5 mg tablet Discontinued 10 mg PO DAILY March 03, 2022 11:41am December 14, 2022 12:47am Start: 03-03-2022 End: 12-14-2022 take 10 mg by mouth once daily Prednisone Discontinued 10 MG PO DAILY March 03, 2022 11:41am December 14, 2022 12:47am Start: 09-01-2021 End: 03-03-2022 take 1 tablet by mouth once daily Prednisone 5 mg tablet Discontinued 5 mg PO DAILY September 01, 2021 12:00am March 03, 2022 11:42am Start: 07-12-2021 predniSONE 10 mg oral tablet Dose : 10 mg = 1 tab(s), Oral, qDay, 0 Refill(s) Start Date: 07/12/21 Status: Ordered take 1 tablet by brayan once daily predniSONE (DELTASONE) 1 mg tablet Take 1 mg by mouth once daily. Active Comment on above: Take 1 mg by mouth o nce daily. proparacaine hydrochloride 5 mg/ml ophthalmic solution (1 source) Local Anesthetic Start: 3 End: 3 proparacaine 0.5 % 1 Drop (ALCAINE) tetracaine hydrochloride 5 mg/ml ophthalmic solution (1 source) Meagan Local Anesthetic Start: 1 End: 1 tetracaine (TETRAVISC) 0.5 % ophthalmic solution 2 drop traMADol hydrochloride 50 mg oral tablet (7 sources) Opioid Agonist Start: 5 End: 5 take 1 tablet by mouth every six hours as needed for pain Tramadol 50 mg tablet Discontinued 50 mg PO EVERY 6 HOURS as needed for pain 20 10 0 October 16, 2024 12:00am October 25, 2024 12:00am October 26, 2024 12:10am Start: 01-13-2022 End: 01-18-2022 Ultram 50 mg oral tablet Dos e : 25 mg = 0.5 tab(s), Oral, q6hr, PRN Pain, scale 7-10, X 5 day(s), # 20 tab(s), 0 Refill(s), 01/18/22 10:59:00 EDT, CAD (coronary artery disease) EF 45-50% S/P CABG 1 01/05/2022 Acute pain, 81.5 Start Date: 01/13/22 Stop Date: 01/18/22 Status: Ordered tropicamide 10 mg/ml ophthalmic solution (2 sources) Anticholinergic Start: 09-01-2022 End: 09-02-2022 tropicamide 1 % 1 Drop (MYDRIACYL) Start: 02-09-2021 End: 02-09-2021 tropicamide (MYDRIACYL) 1 % ophthalmic solution 1 drop Problems Active Problems Problem Classification Problem Date Documented Da te Episodic/Chronic Acute and unspecified renal failure (12 sources) Acute renal failure syndrome; Translations: [Acute kidney failure, unspecified] Onset: 12-31-2021 Episodic Acute myocardial infarction (5 sources) Non-ST elevation (NSTEMI) myocardial infarction; Translations: [Myocardial infarction] Onset: 12-31-2021 Chronic Acute posthemorrhagic anemia (12 sources) Acute posthemorrhagic anemia; Translations: [Acute posthemorrhagic anemia] Onset: 01-05-2022 Episodic Allergic reactions (1 source) Photosensitivity; Translations: [Other specified acute skin changes due to ultraviolet radiation] Episodic Biliary tract disease (20 sources) Common bile duct calculus; Translations: [Calculus of bile duct without cholangitis or cholecystitis without obstruction] 12-25-2022 Episodic Blindness and vision defects (11 sources) Eye / vision finding; Translations: [Unspecified visual disturbance] Episodic Cardiac dysrhythmias (20 sources) Paroxysmal atrial fibrillation; Translations: [Unspecified atrial fibrillation] Onset: 12-31-2021 Chronic Cataract (2 sources) Hypermature senile cataract of right eye; Translations: [Age-related cataract, morgagnian type, right eye] Onset: 12-09-2020 12-09-2020 Chronic Chronic kidney disease (5 sources) Chronic kidney disease stage 3; Translations: [Chronic kidney disease, stage 3 unspecified] Onset: 12-31-2021 Chronic Chronic kidney disease (1 source) Chronic kidney disease; Translations: [Chronic kidney disease, stage 3b] Onset: 03-25-2024 Chronic obstructive pulmonary disease and bronchiectasis (10 sources) Chronic obstructive lung disease; Translations: [Chronic obstructive pulmonary disease, unspecified] 09-01-2021 Chronic Chronic ulcer of skin (20 sources) Pressure ulcer of other site, unspecified stage; Translations: [Pressure injury of skin of foot] 09-01-2021 Chronic Comment on above: Plantar surface L fo ot over the first metatarsal head - unstageable lateral malleolus Left heel-resolved BKA stump toe Congestive heart failure; nonhypertensive (1 source) Heart failure with normal ejection fraction 03-14-2022 Chronic Coronary atherosclerosis and other heart disease (20 sources) Coronary atherosclerosis; Translations: [Atherosclerotic heart disease of [place] coronary artery without angina pectoris] Onset: 12-31-2021 Chronic Comment on above: 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 2021 Crushing injury or internal injury (3 sources) Injury of kidney 12-31-2021 Episodic Deficiency and other anemia (1 source) Anemia 03-14-2022 Episodic Delirium, dementia, and amnestic and other cognitive disorders (2 sources) Unspecified dementia without behavioral disturbance; Translations: [Unspecified dementia, unspecified severity, without behavioral disturbance, psychotic disturbance, mood disturbance, and anxiety] Onset: 07-31-2024 Chronic Diabetes mellitus with complications (20 sources) Chronic kidney disease due to type 2 diabetes mellitus; Translations: [Type 2 diabetes mellitus with diabetic chronic kidney disease] Onset: 07-31-2024 Chronic Diabetes mellitus without complication (20 sources) Type 2 diabetes mellitus without complication; Translations: [Type 2 diabetes mellitus without complications] Onset: 08-21-2019 12-09-2020 Chronic Diseases of white blood cells (4 sources) Leukocytosis; Translations: [Elevated white blood cell count, unspecified] Onset: 01-06-2022 Chronic Disorders of lipid metabolism (20 sources) Dyslipidemia; Translations: [Hyperlipidemia, unspecified] Onset: 08-21-2019 08-21-2019 Chronic Disorders of teeth and jaw (10 sources) Edentulous; Translations: [Complete loss of teeth, unspecified cause, unspecified class] 09-01-2021 Chronic E Codes: Fall (6 sources) Fall; Translations: [Unspecified fall, initial encounter] 10-15-2024 Episodic Essential hypertension (20 sources) Hypertensive disorder; Translations: [Essential (primary) hypertension] Onset: 08-21-2019 08-21-2019 Chronic Hypertension with complications and secondary hypertension (1 source) Chronic kidney disease due to hypertension; Translations: [Hypertensive chronic kidney disease with stage 1 through stage 4 chronic kidney disease, or unspecified chronic kidney disease] Chronic Immunizations and screening for infectious disease (10 sources) Infectious disease carrier; Translations: [Carrier of infectious disease, unspecified] 09-01-2021 Episodic Mood disorders (5 sources) Mood disorder; Translations: [Unspecified mood [affective] disorder] Onset: 12-31-2021 Chronic Mycoses (10 sources) Onychomycosis due to dermatophyte ; Translations: [Tinea unguium] 09-01-2021 Episodic Nutritional deficiencies (20 sources) Malnutrition (calorie); Translations: [Moderate protein-calorie malnutrition] Onset: 08-22-2019 08-22-2019 Chronic Comment on above: protein calorie maln utrition at admission Open wounds of extremities (14 sources) Amputated below knee; Translations: [Complete traumatic amputation at level between knee and ankle, unspecified lower leg, initial encounter] Onset: 12-07-2019 12-07-2019 Chronic Other aftercare (1 source) Long-term current use of systemic steroid; Translations: [group home (current) use of systemic steroids] Episodic Other aftercare (5 sources) Drug therapy finding; Translations: [Other exterminator termite (current) drug therapy] 12-25-2022 Episodic Other aftercare (5 sources) Long-term current use of amiodarone; Translations: [Other exterminator termite (current) drug therapy] 05-16-2022 Episodic Other bone disease and musculoskeletal deformities (1 source) Amputated left lower limb below knee; Translations: [Acquired absence of left leg below knee] Chronic Other bone disease and musculoskeletal deformities (10 sources) History of amputation of right leg through tibia and fibula; Translations: [Acquired absence of right leg below knee] Onset: 05-19-2021 09-01-2021 Chronic Other connective tissue disease (10 sources) Pain in right lower limb; Translations: [Pain in right leg] 09-01-2021 Episodic Other diseases of kidney and ureters (20 sources) Renal mass; Translations: [Other specified disorders of kidney and ureter] Onset: 05-05-2023 01-11-2023 Chronic Comment on above: Patient with recent imaging demonstrating incidental findings of calcifications within the lateral aspect of the left kidney. This was noted by radiology to be concerning for possible malignancy. I would like Mr. Modi to be evaluated by urology to determine if further imaging/work-up is required. Other diseases of kidney and ureters (5 sources) Other specified disorders of kidney and ureter; Translations: [Unspecified disorder of kidney and ureter] Onset: 05-05-2023 12-17-2022 Chronic Other eye disorders (1 source) Swelling of structure of eye; Translations: [Unspecified papilledema] Chronic Other eye disorders (1 source) Lesion of left upper eyelid; Translations: [Unspecified disorder of eyelid] Onset: 12-09-2020 12-09-2020 Episodic Other eye disorders (1 source) Excess skin of eyelid; Translations: [Dermatochalasis of right upper eyelid] Onset: 12-09-2020 12-09-2020 Episodic Other gastrointestinal disorders (10 sources) Patient encounter status; Translations: [Encounter for attention to other artificial openings of digestive tract] 01-11-2023 Chronic Comment on above: This is an 82-year-o ld male who presents for evaluation and post hospital follow-up after cholecystostomy tube placement 12/15/2022. On 01/30/2023 patient had a through tube cholangiogram performed that showed flow of contrast into the duodenum. However, radiology commented about a concern for obstruction in the distal common bile duct. Based on this report I performed a repeat CMP and CBC for Mr. Modi. Both of these laboratory studies were largely unremarkable and did not signify any concern for biliary obstruction. With Mr. Modi's confirmation that he has had no further abdominal discomfort I proceeded with cholecystostomy tube removal during today's clinic visit. Patient is informed that he needs to keep the dressing that has been placed over the exit site intact x48 hours post procedurally. I would asked that he also hold his Eliquis for this same time. Other gastrointestinal disorders (3 sources) Encounter for attention to other artificial openings of digestive tract; Translations: [Attention to other artificial opening of digestive tract] 01-11-2023 Chronic Other gastrointestinal disorders (16 sources) Incontinence of feces; Translations: [Full incontinence of feces] 03-04-2024 Episodic Other injuries and conditions due to external causes (6 sources) Abrasion and/or friction burn of multiple sites; Translations: [Unspecified multiple injuries, initial encounter] 10-15-2024 Episodic Other nervous system disorders (1 source) H/O: MANAGER AUDIO disorder; Translations: [Personal history of other diseases of the nervous system and sense organs] Onset: 12-31-2021 Episodic Other nervous system disorders (3 sources) H/O: Singh's palsy 12-31-2021 Episodic Other nutritional; endocrine; and metabolic disorders (11 sources) Hypomagnesemia; Translations: [Hypomagnesemia] Chronic Comment on above: Due to increased exc retion of magnesium in the urine Other nutritional; endocrine; and metabolic disorders (1 source) Obese class II; Translations: [Body mass index (BMI) 37.0-37.9, adult] Chronic Other nutritional; endocrine; and metabolic disorders (10 sources) Obesity; Translations: [Obesity, unspecified] 12-25-2022 Chronic Other screening for suspected conditions (not mental disorders or infectious disease) (2 sources) Patient encounter status; Translations: [Encounter for screening for other disorder] 06-18-2024 Episodic Peripheral and visceral atherosclerosis (20 sources) Peripheral vascular disease; Translations: [Peripheral vascular disease, unspecified] Onset: 12-07-2019 12-07-2019 Chronic Comment on above: Right BKA; Right fem oral endarterectomy 2019; LEFT BKA 05/26/2020 Pleurisy; pneumothorax; pulmonary collapse (5 sources) Pleural effusion; Translations: [Pleural effusion, not elsewhere classified] Onset: 01-10-2022 Episodic Residual codes; unclassified (1 source) Pain; Translations: [Pain, unspecified] Onset: 01-13-2022 Episodic Residual codes; unclassified (16 sources) Past history of procedure; Translations: [Other specified postprocedural states] 09-04-2023 Episodic Comment on above: 12.15.[address]; 06.06.23 with stent removal Respiratory failure; insufficiency; arrest (adult) (2 sources) Chronic respiratory failure with hypoxia; Translations: [Chronic respiratory failure with hypoxia] Onset: 07-31-2024 Chronic Retinal detachments; defects; vascular occlusion; and retinopathy (1 source) Pattern dystrophy of macula; 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] Onset: 12-09-2020 12-09-2020 Chronic Screening and history of mental health and substance abuse codes (1 source) H/O: Disorder; Translations: [Personal history of nicotine dependence] Episodic Septicemia (except in labor) (10 sources) Sepsis; Translations: [Sepsis, unspecified organism] 05-20-2020 Episodic Skin and subcutaneous tissue infections (20 sources) Cellulitis of lower limb; Translations: [Cellulitis of right lower limb] 09-01-2021 Episodic Comment on above: Right groin incision -resolved Substance-related disorders (10 sources) Tobacco dependence in remission; Translations: [Nicotine dependence, unspecified, in remission] 09-01-2021 Chronic Comment on above: quit in Superficial injury; contusion (16 sources) Blister of toe without infection; Translations: [Blister (nonthermal), left lesser toe(s), initial encounter] 09-01-2021 Episodic Comment on above: left dorsal fifth to e Systemic lupus erythematosus and connective tissue disorders (16 sources) Temporal arteritis; Translations: [Other giant cell arteritis] Onset: 12-31-2021 Chronic Thyroid disorders (20 sources) Hypothyroidism; Translations: [Hypothyroidism, unspecified] Onset: 08-21-2019 08-21-2019 Chronic Past or Other Problems Problem Classification Problem Date Documented Date Episodic/Chronic Complications of surgical procedures or medical care (14 sources) Non-healing surgical wound; Translations: [Other complications of procedures, not elsewhere classified, initial encounter] Onset: 12-09-2019 12-09-2019 Episodic Fluid and electrolyte disorders (20 sources) Hyperosmolality with hypernatremia; Translations: [Hyperosmolality and hypernatremia] Onset: 02-28-2024 Episodic Gangrene (14 sources) Gangrene of foot; Translations: [Gangrene, not elsewhere classified] Onset: 08-21-2019 08-21-2019 Episodic Genitourinary symptoms and ill-defined conditions (11 sources) Proteinuria; Translations: [Proteinuria, unspecified] Onset: 06-18-2024 Episodic Other injuries and conditions due to external causes (1 source) Encounter for examination and observation following other accident; Translations: [Encounter for examination and observation following other accident] Onset: 10-21-2024 Episodic Residual codes; unclassified (10 sources) History of cardiovascular surgery; Translations: [Other specified postprocedural states] Onset: 08-18-2019 09-01-2021 Episodic Comment on above: R femoral on 09/02/19 Residual codes; unclassified (1 source) Other specified postprocedural states; Translations: [Other specified postprocedural states] Onset: 06-06-2024 Episodic Unclassified (10 sources) Blister (nonthermal), left foot, initial encounter 09-01-2021 Comment on above: dorsal hindfoot, lef t Results Test Name Value Interpretation Reference Range Facility CNOVon 01-14-2025 CNOV Office Visit ([facility] ) ELIZABETH MODI ([id number]) 1940 M T Date Time Provider Department 01/14/25 9:15 AM GAYAL CLINE During your visit today, we recorded the following information about you: Gayla Cline MD 01/14/2025 10:48 AM Signed CYSTOSCOPY PROCEDURE NOTE : Elizabeth Modi is a 84 year old male who is here for cystoscopy PRE-OP/PRE-PROCEDURE DIAGNOSIS: h/o gross henaturia POST-OP/POST-PROCEDURE DIAGNOSIS: same SURGERY/PROCEDURE(S): Cystoscopy Pt ID verified with patient: Yes Procedure verified with patient: Yes Procedure confirmed with physician and microcomputer support specialist: Yes UNIVERSAL PROTOCOL / SAFETY CHECKLIST Procedure to be Performed: cystoscopy Sign In: A Moment of CARE was completed. Appropriate PPE (Personal Protective Equipment) worn by all providers involved with the procedure. Special equipment not required. Patient/Surrogate Stated/Verified: Patient name, Date of , Relevant allergies, and The intended procedure Time Out: Relevant labs, photos, and/or imaging studies have been reviewed. Intended patient and procedure match the source document(s) (e.g. consent, HANDP, associated studies [imaging, pathology]) match the intended patient and procedure. Consent obtained and matches the intended procedure. Yes. Correct side/site is not applicable. Medications required for this procedure are verified. Fire risk assessed and is not applicable. Implants: are not applicable. Sign Out: Specimens not collected. All instruments, equipment, possible retained foreign bodies are accounted for. Yes. The post-procedure plan of care has been communicated to the patient or surrogate. The benefits, risks, alternatives of the cystoscopy procedure and personnel were discussed with the patient. The verbal consent was obtained and the patient agrees to proceed. Procedure: The patient was positioned supine and prepped with Betadine. Lidocaine jelly was instilled into his urethra. I used a flexible cystoscope to perform the procedure. There was no urethral stricture. The lateral lobes of the prostate were coapting. The ureteral orifices were orthotopic. There were no bladder lesions or stones. IMPRESSION: Gross hematuria- no pathology PLAN: observe Electronically Signed: Gayla Cline MD January 14, 2025 10:44 AM This note was partially created using voice recognition software and is inherently subject to errors including those of syntax and sound-alike substitutions which may escape proofreading. In such instances, original meaning may be extrapolated by contextual derivation. Gayla Cline MD 01/14/2025 10:48 AM Signed ESTABLISHED PATIENT OFFICE VISIT The patient is here for follow-up of gross hematuria. He has a known left renal mass which has been unchanged. His last CT scan was in September 2024. Earlier this visit I performed a cystoscopy. This showed no lesions. LAB RESULTS Creatinine Date Value Ref Range Status 06/18/2024 1.37 (H) 0.73 - 1.22 mg/dL Final No results found for: "PSA", "PSASC" GLUCOSE UA (POCT) (mg/dL) Date Value 06/18/2024 >=1000 (A) BILIRUBIN UA (POCT) (no units) Date Value 06/18/2024 Small (A) KETONE UA (POCT) (mg/dL) Date Value 06/18/2024 Negative SPECIFIC GRAVITY UA (POCT) (no units) Date Value 06/18/2024 1.020 HEMOGLOBIN/BLOOD UA (POCT) (no units) Date Value 06/18/2024 Large (A) PH UA (POCT) (no units) Date Value 06/18/2024 7.0 PROTEIN UA (POCT) (mg/dL) Date Value 06/18/2024 >=300 (A) UROBILINOGEN UA (POCT) (E.U./dL) Date Value 06/18/2024 1.0 NITRITE UA (POCT) (no units) Date Value 06/18/2024 Negative LEUKOCYTES UA (POCT) (no units) Date Value 06/18/2024 Negative COLOR UA (POCT) (no units) Date Value 06/18/2024 Red CLARITY UA (POCT) (no units) Date Value 06/18/2024 Slightly Cloudy ] ALLERGIES No Known Allergies MEDICATIONS: TRULICITY 3 mg/0.5 mL pen injector 3 mg. potassium chloride 20 mEq TbER Take 20 mEq by mouth once daily. glipiZIDE (GLUCOTROL XL) 2.5 mg 24 hr tablet 10 mg. apixaban (ELIQUIS) 2.5 mg tab(s) 2.5 mg once daily. acetaminophen (TYLENOL) 325 mg tablet Take 650 mg by mouth. carvedilol (COREG) 3.125 mg tablet carvedilol 3.125 mg tablet 1 tab po BID empagliflozin (JARDIANCE) 25 mg tablet Take 25 mg by mouth once daily. sacubitril-valsartan (ENTRESTO) 24-26 mg tablet Entresto 24 mg-26 mg tablet 1 tab po BID polyethylene glycol 3350 17 gram packet Take 17 g by mouth once daily. Dissolve dose in 4 - 8 ounces of liquid and take as directed. atorvastatin (LIPITOR) 40 mg tablet Take 20 mg by mouth once daily. (Patient taking differently: Take 40 mg by mouth once daily.) levothyroxine (SYNTHROID) 25 mcg tablet Take 50 mcg by mouth once daily. (Patient taking differently: Take 75 mcg by mouth once daily.) iv contrast (will be provided wit (more content not included)... [facility] Anion gap in Serum or Plasma Ordered By: Victor M Rojas on 12-18-2024 Anion gap [Moles/Vol] 14 mmol/L 5-15 [facility] BUN/creatinine ratioOrdered By: Victor M Rojas on 12-18-2024 Urea nitrogen/Creatinine [Mass ratio] 18.6 mg/mg 10-20 [facility] Bilirubin, totalOrdered By: Victor M Rojas on 12-18-2024 Bilirubin [Mass/Vol] 0.79 mg/dL 0.00-1.30 [facility] Calculated very low density lipoprotein (VLDL) cholesterol measurementOrdered By: Victor M Rojas on 12-18-2024 Calculated very low density lipoprotein (VLDL) cholesterol measurement 25 mg/dL 5-40 [facility] Carbon dioxide, total [Moles /volume] in Central venous bloodOrdered By: Victor M Rojas on 12-18-2024 CO2 [Moles/Vol] 19.2 mmol/L Low 21.0-32.0 [facility] Chloride assayOrdered By: Stefan Rojas on 12-18-2024 Chloride [Moles/Vol] 105 mmol/L 98-108 [facility] Erythrocyte distribution wid th ratioOrdered By: Victor M Rojas on 12-18-2024 Erythrocyte distribution width (RBC) [Ratio] 14.9 % High 11.6-14.6 [facility] Erythrocyte distribution wid th standard deviationOrdered By: Victor M Rojas on 12-18-2024 Erythrocyte distribution width (RBC) [Ratio] 48.5 fl High 35.1-43.9 [facility] Glomerular filtration rate ( GFR) estimation/1.73 sq m using serum, plasma, or whole bOrdered By: Victor M Rojas on 12-18-2024 GFR/1.73 sq M.predicted among non-blacks MDRD (S/P/Bld) [Vol rate/Area] 38 mL/min/{1.73_m2} Low >60 [facility] Comment on above: mL/min/1.73m2 CKD-EP I Creatinine Equation (2020) Hematocrit Auto (Bld) [Volum e fraction]Ordered By: Victor M Rojas on 12-18-2024 Hematocrit (Bld) [Volume fraction] 44.3 % 40-54 [facility] Hemoglobin A1c percentageOrd ered By: Victor M Rojas on 12-18-2024 HbA1c (Bld) [Mass fraction] 8.8 % High <5.7 [facility] Comment on above: Normal < 5.7 % Predi abetic 5.7 - 6.4 % Diabetic >or= 6.5 % Please note range changes. Hemoglobin measurementOrdere d By: Victor M Rojas on 12-18-2024 Hemoglobin (Bld) [Mass/Vol] 14.1 g/dL 13.0-16.5 [facility] LDL calc ser/plasOrdered By: Victor M Rojas on 12-18-2024 Cholesterol in LDL [Mass/Vol] 48 mg/dL [facility] Comment on above: Nxkulzwuyu=159-421 m g/dL & Higher Eapw=221 mg/dL or greater Laboratory - Chemistry and C hemistry - challengeOrdered By: Victor M Rojas on 12-18-2024 AST [Catalytic activity/Vol] 27 U/L <38 [facility] MCV (mean corpuscular volume ) determinationOrdered By: Victor M Rojas on 12-18-2024 MCV (RBC) [Entitic vol] 89.1 fL 80-94 [facility] Mean corpuscular hemoglobin (MCH) determinationOrdered By: Victor M Rojas on 12-18-2024 MCH (RBC) [Entitic mass] 28.4 pg 27.0-32.0 [facility] Mean corpuscular hemoglobin concentration (MCHC) determinationOrdered By: Victor M Rojas on 12-18-2024 MCHC (RBC) [Mass/Vol] 31.8 g/dL Low 32-36 [facility] Mean platelet volume determi nationOrdered By: Victor M Rojas on 12-18-2024 Platelet mean volume (Bld) [Entitic vol] 11.5 fL 6.2-12.0 [facility] Platelet countOrdered By: Stefan Rojas on 12-18-2024 Platelets (Bld) [#/Vol] 218 10*3/uL 150-450 [facility] Potassium measurement (mass/ volume)Ordered By: Victor M Rojas on 12-18-2024 Potassium (Unsp spec) [Mass/Vol] 4.3 mmol/L 3.3-5.1 [facility] RBC Auto (Bld) [#/Vol]Ordere d By: Victor M Rojas on 12-18-2024 RBC (Bld) [#/Vol] 4.97 10*6/uL 4.6-6.2 [facility] Screening total cholesterol/ high density lipoprotein (HDL) cholesterol ratioOrdered By: Victor M Rojas on 12-18-2024 Cholesterol.total/Cholest giuliana in HDL [Mass ratio] 4.53 {ratio} [facility] Serum creatinine measurement (mass/volume)Ordered By: Victor M Rojas on 12-18-2024 Creatinine [Mass/Vol] 1.74 mg/dL High 0.70-1.20 [facility] Serum globulin measurementOr dered By: Victor M Rojas on 12-18-2024 Globulin (S) [Mass/Vol] 3.5 g/dL 2.2-4.2 [facility] Serum glucose measurement (m ass/volume)Ordered By: Victor M Rojas on 12-18-2024 Glucose [Mass/Vol] 82 mg/dL 70-99 [facility] Serum or plasma alanine mojica otransferase (ALT) measurementOrdered By: Victor M Rojas on 12-18-2024 ALT [Catalytic activity/Vol] 20 U/L <47 [facility] Serum or plasma albumin akash urement (mass/volume)Ordered By: Victor M Rojas on 12-18-2024 Albumin [Mass/Vol] 3.3 g/dL Low 3.4-4.8 [facility] Serum or plasma albumin/glob ulin mass ratioOrdered By: Victor M Rojas on 12-18-2024 Albumin/Globulin [Mass ratio] 1.0 {ratio} 0.9-2.4 [facility] Serum or plasma alkaline marielos sphatase measurementOrdered By: Vcitor M Rojas on 12-18-2024 ALP [Catalytic activity/Vol] 117 U/L 40-129 [facility] Serum or plasma calcium akash urement (mass/volume)Ordered By: Victor M Rojas on 12-18-2024 Calcium [Mass/Vol] 8.8 mg/dL 7.6-11.0 [facility] Serum or plasma cholesterol in HDL measurement (mass/volume)Ordered By: Victor M Rojas on 12-18-2024 Cholesterol in HDL [Mass/Vol] 21 mg/dL Low >40 [facility] Comment on above: National Cholesterol Education Program (NCEP) guidelines:<40 mg/dL: Low HDL-cholesterol (major risk factor for CHD)>= 60 mg/dL: High HDL-cholesterol (negative risk factor for CHD)HDL-cholesterol is affected by a number of factors, e.g. smoking, exercise, hormones, sex and age. Serum or plasma cholesterol measurement (mass/volume)Ordered By: Victor M Rojas on 12-18-2024 Cholesterol [Mass/Vol] 94 mg/dL <201 [facility] Comment on above: Cholesterol level, D esirable <200 mg/dLBorderline high cholesterol 200-239 mg/dLHigh cholesterol >=240 mg/dLRecommendations of the NCEP Adult Treatment Panel for the following risk-cutoff thresholds for the [place] population. Serum or plasma urea nitroge n measurement (mass/volume)Ordered By: Victor M Rojas on 12-18-2024 Urea nitrogen [Mass/Vol] 32 mg/dL High 4-19 [facility] Sodium levelOrdered By: Brandon Rojas on 12-18-2024 Sodium [Moles/Vol] 138 mmol/L 133-145 [facility] TSH DL <= 0.005 mIU/L QnOrde red By: Victor M Rojas on 12-18-2024 TSH Qn 1.380 uIU/mL 0.300-4.200 [facility] Total proteinOrdered By: Prosper Rojas on 12-18-2024 Protein [Mass/Vol] 6.8 g/dL 5.9-8.4 [facility] Triglycerides measurementOrd ered By: Victor M Rojas on 12-18-2024 Triglyceride [Mass/Vol] 125 mg/dL <199 [facility] Comment on above: The drugs N-Acetylcy steine and Metamizole may falsely depress this assay. Normal range: <150 mg/dLBorderline High: 150-199 mg/dLHigh: 200-499 mg/dLVery High: >500 mg/dL White blood cell (WBC) count Ordered By: Victor M Rojas on 12-18-2024 WBC (Bld) [#/Vol] 7.7 10*3/uL 4.4-11.0 [facility] Anion gap in Serum or Plasma Ordered By: Victor M Rojas on 11-20-2024 Anion gap [Moles/Vol] 13 mmol/L 5-15 [facility] BUN/creatinine ratioOrdered By: Victor M Rojas on 11-20-2024 Urea nitrogen/Creatinine [Mass ratio] 16.5 mg/mg 10-20 [facility] Carbon dioxide, total [Moles /volume] in Central venous bloodOrdered By: Victor M Rojas on 11-20-2024 CO2 [Moles/Vol] 20.9 mmol/L Low 21.0-32.0 [facility] Chloride assayOrdered By: Stefan Rojas on 11-20-2024 Chloride [Moles/Vol] 104 mmol/L 98-108 [facility] Glomerular filtration rate ( GFR) estimation/1.73 sq m using serum, plasma, or whole bOrdered By: Victor M Rojas on 11-20-2024 GFR/1.73 sq M.predicted among non-blacks MDRD (S/P/Bld) [Vol rate/Area] 38 mL/min/{1.73_m2} Low >60 [facility] Comment on above: mL/min/1.73m2 CKD-EP I Creatinine Equation (2020) Potassium measurement (mass/ volume)Ordered By: Victor M Rojas on 11-20-2024 Potassium (Unsp spec) [Mass/Vol] 4.2 mmol/L 3.3-5.1 [facility] Serum creatinine measurement (mass/volume)Ordered By: Victor M Rojas on 11-20-2024 Creatinine [Mass/Vol] 1.75 mg/dL High 0.70-1.20 [facility] Serum glucose measurement (m ass/volume)Ordered By: Victor M Rojas on 11-20-2024 Glucose [Mass/Vol] 130 mg/dL High 70-99 [facility] Serum or plasma albumin akash urement (mass/volume)Ordered By: Victor M Rojas on 11-20-2024 Albumin [Mass/Vol] 3.5 g/dL 3.4-4.8 [facility] Serum or plasma calcium akash urement (mass/volume)Ordered By: Victor M Rojas on 11-20-2024 Calcium [Mass/Vol] 8.8 mg/dL 7.6-11.0 [facility] Serum or plasma urea nitroge n measurement (mass/volume)Ordered By: Victor M Rojas on 11-20-2024 Urea nitrogen [Mass/Vol] 29 mg/dL High 4-19 [facility] Sodium levelOrdered By: Brandon Rojas on 11-20-2024 Sodium [Moles/Vol] 139 mmol/L 133-145 [facility] Calculated very low density lipoprotein (VLDL) cholesterol measurementOrdered By: Christina Whipple on 11-07-2024 Calculated very low density lipoprotein (VLDL) cholesterol measurement 34 mg/dL 5-40 [facility] LDL calc ser/plasOrdered By: Christina Whipple on 11-07-2024 Cholesterol in LDL [Mass/Vol] 43 mg/dL [facility] Comment on above: Ehrrubxdql=424-548 m g/dL & Higher Keae=655 mg/dL or greater Screening total cholesterol/ high density lipoprotein (HDL) cholesterol ratioOrdered By: Christina Whipple on 11-07-2024 Cholesterol.total/Cholest giuliana in HDL [Mass ratio] 4.60 {ratio} [facility] Serum or plasma cholesterol in HDL measurement (mass/volume)Ordered By: Christina Whipple on 11-07-2024 Cholesterol in HDL [Mass/Vol] 21 mg/dL Low >40 [facility] Comment on above: National Cholesterol Education Program (NCEP) guidelines:<40 mg/dL: Low HDL-cholesterol (major risk factor for CHD)>= 60 mg/dL: High HDL-cholesterol (negative risk factor for CHD)HDL-cholesterol is affected by a number of factors, e.g. smoking, exercise, hormones, sex and age. Serum or plasma cholesterol measurement (mass/volume)Ordered By: Christina Whipple on 11-07-2024 Cholesterol [Mass/Vol] 99 mg/dL <201 [facility] Comment on above: Cholesterol level, D esirable <200 mg/dLBorderline high cholesterol 200-239 mg/dLHigh cholesterol >=240 mg/dLRecommendations of the NCEP Adult Treatment Panel for the following risk-cutoff thresholds for the [place] population. Triglycerides measurementOrd ered By: Christina Whipple on 11-07-2024 Triglyceride [Mass/Vol] 171 mg/dL <199 [facility] Comment on above: The drugs N-Acetylcy steine and Metamizole may falsely depress this assay. Normal range: <150 mg/dLBorderline High: 150-199 mg/dLHigh: 200-499 mg/dLVery High: >500 mg/dL Anion gap in Serum or Plasma Ordered By: Victor M Rojas on 10-23-2024 Anion gap [Moles/Vol] 12 mmol/L 5-15 [facility] BUN/creatinine ratioOrdered By: Victor M Rojas on 10-23-2024 Urea nitrogen/Creatinine [Mass ratio] 21.7 mg/mg High 10-20 [facility] Carbon dioxide, total [Moles /volume] in Central venous bloodOrdered By: Victor M Rojas on 10-23-2024 CO2 [Moles/Vol] 19.8 mmol/L Low 21.0-32.0 [facility] Chloride assayOrdered By: Stefan Rojas on 10-23-2024 Chloride [Moles/Vol] 106 mmol/L 98-108 [facility] Glomerular filtration rate ( GFR) estimation/1.73 sq m using serum, plasma, or whole bOrdered By: Victor M Rojas on 10-23-2024 GFR/1.73 sq M.predicted among non-blacks MDRD (S/P/Bld) [Vol rate/Area] 39 mL/min/{1.73_m2} Low >60 [facility] Comment on above: mL/min/1.73m2 CKD-EP I Creatinine Equation (2020) Potassium measurement (mass/ volume)Ordered By: Victor M Rojas on 10-23-2024 Potassium (Unsp spec) [Mass/Vol] 4.0 mmol/L 3.3-5.1 [facility] Serum creatinine measurement (mass/volume)Ordered By: Stefanradha Rojas on 10-23-2024 Creatinine [Mass/Vol] 1.73 mg/dL High 0.70-1.20 [facility] Serum glucose measurement (m ass/volume)Ordered By: Milyprice Granadosluissammi on 10-23-2024 Glucose [Mass/Vol] 129 mg/dL High 70-99 [facility] Serum or plasma albumin akash urement (mass/volume)Ordered By: Milyprice Granadosluissammi on 10-23-2024 Albumin [Mass/Vol] 3.3 g/dL Low 3.4-4.8 [facility] Serum or plasma calcium akash urement (mass/volume)Ordered By: Victor M Darwinluissammi on 10-23-2024 Calcium [Mass/Vol] 8.6 mg/dL 7.6-11.0 [facility] Serum or plasma urea nitroge n measurement (mass/volume)Ordered By: Stefanradha Rojas on 10-23-2024 Urea nitrogen [Mass/Vol] 38 mg/dL High 4-19 [facility] Sodium levelOrdered By: Brandon wynn Darwinkelly on 10-23-2024 Sodium [Moles/Vol] 137 mmol/L 133-145 [facility] Cardiology Visit Reporton Cardiology Visit Report [facility] [address] [place] [address]. [address] [place] [address] OFFICE VISIT Date of Service: 10/16/24 MR#: [id number] Acct: [id number] Name: ELIZABETH MODI Rep #: [id number] : 1940 Provider: GILL Connor Age/Sex: 84/M [place] [facility] Status: Signed HPI HPI History of Present Illness Details: Elizabeth Modi is an 84-year-old man who presents today for a cardiovascular outpatient follow-up. He established with us in August 2021. He was last seen in 2022. He had been admitted in May 2020 with bacteremia left foot gangrene and underwent a left below-knee amputation. During the admission patient was noted to be in atrial fibrillation with a rapid ventricular response rate was hypotensive and was emergently cardioverted. He was started on amiodarone and Eliquis. He had an echocardiogram performed to exclude a vegetation and at that time the estimated ejection fraction was 40 to 45%. It subsequently declined to 25 to 30% with wall motion abnormalities and right ventricular systolic pressure was noted to be 60 mmHg. The patient was evaluated by cardiology and a stress test was performed which demonstrated an abnormal small fixed anterior defect involving the anterior wall and apex with minimal reversibility noted. Subsequent improvement in the left ventricular function in October 2020 with an estimated ejection fraction of 58%, and in May 2021 with an estimated ejection fraction of 55% with mild left atrial enlargement. An event monitor from July 2020 demonstrated no evidence of atrial fibrillation and it does not appear that he had any further atrial fibrillation since discharge. He does have a history of hypertension and has been on antihypertensive medication since then. He also history of hyperlipidemia. He states that he did undergo CABG x 1 in December of 2021 at [facility] in [place]. He had a left internal mammary artery to left anterior descending coronary artery. He is residing at a [place]. From a cardiac standpoint, patient is doing well. He does not have any chest discomfort/heaviness/t ightness. He does not have any worsening symptoms of shortness of breath. He denies any PND. He does not have any orthopnea. He does not have any symptoms of congestive heart failure. He does not have any palpitations that he is aware of. He does not have any lightheadedness or dizziness. He does not have any near-syncope or syncope. He is in a WC. 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: No Accompanied by: Caregiver Is patient in pain?: No Allergies No Known Allergies Allergy (Verified 10/16/24 08:18) Medications ???Medication ???Instructions ???Recorded ???Confirmed ???Type atorvastatin 40 mg tablet 40 mg PO DAILY 03/03/22 10/16/24 H istory carvedilol 3.125 mg tablet (Coreg) 3.125 mg PO BID 05/16/22 5 History acetaminophen 325 mg capsule 650 mg PO Q4H PRN pain 12/14/22 History multivitamin 1 tab PO DAILY 12/14/22 06/06/24 H istory polyethylene glycol 3350 17 17 g PO DAILY PRN constipation 10/16/24 History gram/dose oral powder (Miralax) sacubitril 24 mg-valsartan 26 mg 1 tab PO BID 01/11/23 10/16/24 His tory tablet (Entresto) insulin aspart U-100 100 unit/mL 1 sliding scale dose subcut 06/06/24 History (3 mL) subcutaneous pen (Novolog USEASDIRECTD FlexPen U-100 Insulin aspart) ondansetron HCl 4 mg tablet 4 mg PO Q4H PRN nausea and vomitin g 05/30/23 10/16/24 History cholestyramine (with sugar) 4 gram 4 g PO QDAY #368.76 grams 06/06/24 Rx oral powder nystatin 100,000 unit/gram topical 1 applic topical QDAY 03/04/24 1 08/07/23 History cream potassium chloride 20 mEq 20 meq PO QDAY 03/04/24 10/16/24 H istory tablet,extended release(part/cryst) colestipol 1 gram tablet 2 g (2 x 1 gram) PO QDAY #60 tabs 06/06/24 06/06/24 Rx albuterol sulfate 2.5 mg/3 mL 2.5 mg inhalation BID PRN 10/16/24 10/16/24 History (0.083 %) solution for nebulization amiodarone 200 mg tablet 200 mg PO QDAY 10/16/24 10/16/24 H istory apixaban 2.5 mg tablet (Eliquis) 2.5 mg PO BID 10/16/24 10/16/24 Hi story empagliflozin 25 mg tablet 25 mg PO DAILY 10/16/24 10/16/24 H istory (Jardiance) glipizide 10 mg tablet, extended 10 mg PO DAILY 10/16/24 10/16/24 H istory release 24 hr levothyroxine 75 mcg tablet 75 mcg PO DAILY 10/16/24 10/16/24 History Ejection fraction %: 45 Have you fallen in the past year?: Yes PFSH Medic (more content not included)... Normal [facility] Elbow min 3 Viewson 10-16-19 Elbow min [address] [facility] Imaging Services [address] [place] [address] Elbow min 3 Views MR#: [id number] Acct: [id number] Name: ELIZABETH MODI Rep #: [id number] : 1940 M 84 From: Edy Kapadia MD PCP: Dr. Diana Salmeron MD Status: REG ER Study: Elbow min 3 Views Date of Exam: 10/15/24 Exam# [id number] Ordering Dr: Jesse Angel DO EXAM: Left elbow CLINICAL HISTORY: Injury, pain COMPARISON: None TECHNIQUE: Three views FINDINGS: No acute fracture or dislocation. Moderate joint space narrowing and osteophyte formation consistent with moderate arthrosis. Normal soft tissues. RAD/Elbow min 3 Views IMPRESSION: No acute fracture or dislocation. Moderate arthrosis. Reading Location: [facility] CC: Dr. Diana Salmeron MD; Dr. Jesse Angel DO Assistant Golf Professional: Signed Normal [facility] Emergency Department Summary on 10-15-2024 Emergency Department Summary [facility] Medical Records Department [address] [place] [address] Emergency Department Summary 10/15/24 MR#: [id number] Acct: [id number] Name: ELIZABETH MODI Rep #: [id number] : 1940 84 From: Jesse Angel DO PCP: Dr. Diana Salmeron MD Status:REG ER Location: ED HPI HPI - Fall History of Present Illness Chief Complaint: Fall Occured/Mechanism Occurred: Today Narrative: Fell out of his motorized chair Pain/Injury Location: Left hand, left elbow, bilateral knees, left periorbital area Pain Location: face, upper extremity and lower extremity Quality of Pain: - (Cramping) Worsened by: Nothing Relieved by: Nothing Narrative Narrative: Patient presents after a fall out of his motorized chair today. Patient states he was in his chair going down the sidewalk when the sidewalk was uneven. Patient did not see this and hit the uneven sidewalk. Patient states that this caused him to fall forward out of his motorized chair. Patient hit the left side of his head. Patient also complains of pain in his left elbow. Patient also admits to abrasions everywhere both lower extremities and his left hand. Patient denies any loss of consciousness. Patient denies any paresthesias or weakness. Patient is unsure of his last tetanus. Tetanus Immunization: Unknown [facility] Medical History History of echocardiogram History of stress test Cardiology follow-up encounter Sleep apnea Loss of hearing CAD (coronary artery disease) High cholesterol History of heart attack Renal mass, left Thyroid disease History of atrial fibrillation Hypertension History of CHF (congestive heart failure) Wears glasses Wears dentures Insulin dependent diabetes mellitus History of renal disease Non-smoker COPD (chronic obstructive pulmonary disease) Obesity Atherosclerotic heart disease of [place] coronary artery without angina pectoris Paroxysmal atrial fibrillation 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 Essential hypertension Tinea unguium Vitamin D deficiency Edentulous Tobacco dependence in remission Hypothyroidism Diabetes mellitus type 2, uncontrolled Home Medications ???Medication ???Instructions ???Recorded ???Last Taken ???Type levothyroxine 50 mcg tablet 50 mcg PO DAILY 09/01/21 06/06/23 History apixaban 2.5 mg tablet (Eliquis) 2.5 mg PO DAILY 03/03/22 06/03/23 History atorvastatin 40 mg tablet 40 mg PO DAILY 03/03/22 06/05/23 H istory carvedilol 3.125 mg tablet (Coreg) 3.125 mg PO BID 05/16/22 3 History acetaminophen 325 mg capsule 650 mg PO Q4H PRN pain 12/14/22 Un known History empagliflozin 10 mg tablet 25 mg PO DAILY 12/14/22 06/05/23 H istory (Jardiance) multivitamin 1 tab PO DAILY 12/14/22 Unknown Hi story polyethylene glycol 3350 17 17 g PO DAILY PRN constipation Unknown History gram/dose oral powder (Miralax) glipizide 2.5 mg tablet, extended 5 mg PO DAILY 01/11/23 06/05/23 H istory release 24 hr sacubitril 24 mg-valsartan 26 mg 1 tab PO BID 01/11/23 06/06/23 His tory tablet (Entresto) insulin aspart U-100 100 unit/mL 1 sliding scale dose subcut Unknown History (3 mL) subcutaneous pen (Novolog USEASDIRECTD FlexPen U-100 Insulin aspart) ondansetron HCl 4 mg tablet 4 mg PO Q4H PRN nausea and vomitin g 05/30/23 Unknown History cholestyramine (with sugar) 4 gram 4 g PO QDAY #368.76 grams Unknown Rx oral powder nystatin 100,000 unit/gram topical 1 applic topical QDAY 03/04/24 U nknown History cream potassium chloride 20 mEq 20 meq PO QDAY 03/04/24 Unknown Hi story tablet,extended release(part/cryst) colestipol 1 gram tablet 2 g (2 x 1 gram) PO QDAY #60 tabs 06/06/24 Unknown Rx Allergy/AdvReac Type Severity Reaction Status Date / Time No Known Allergies Allergy Verified 10/15/24 16:03 Family History (Reviewed 02/15/23 @ 11:03 by Briana Plata TICKET COLLECTOR OR USHER, TICKET COLLECTOR OR USHER-C) Mother Diabetes Father Diabetes Heart disease Surgical History History of heart surgery History of cardiac catheterization S/P bilateral below knee amputation S/P CABG x 1 History of cardioversion (05/20/20) 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 alcohol intake: current alcohol intake frequency: a few times a month details: Prior heavier, now occasional. substance use type: does not use ROS ROS ED Constitutional Constitutional ED: Denies chills or fever(s) Eyes E (more content not included)... Normal [facility] Orb Sella Post Fossa Ear w/o on 10-15-2024 Orb Sella Post Fossa Ear w/o [facility] Imaging Services [address] [place] [address] Orb Sella Post Fossa Ear w/o MR#: [id number] Acct: [id number] Name: ELIZABETH MODI Rep #: [id number] : 1940 M 84 From: Edy Kapadia MD PCP: Dr. Diana Salmeron MD Status: [facility] Study: Orb Sella Post Fossa Ear w/o Date of Exam: Exam# [id number] Ordering Dr: Jesse Angel DO PROCEDURE: ORB SELLA POST FOSSA EAR W/O 10/15/2024 REASON FOR EXAM: INJURY TECHNIQUE: CT of the orbits without contrast. One or more dose reduction techniques were used (e.g., Automated exposure control, adjustment of the mA and/or kV according to patient size, use of iterative reconstruction technique). FINDINGS: Globes: Intact Extraocular Muscles: Normal Orbits: No abnormal mass. Lacrimal Glands: Normal Bones: No fracture. Other: Visualized paranasal sinuses and intracranial structures: No sinusitis. CT/Orb Sella Post Fossa Ear w/o IMPRESSION: NO ORBITAL FRACTURE OR RETROBULBAR HEMATOMA. Reading Location: [facility] CC: Dr. Diana Salmeron MD; Dr. Jesse Angel DO Assistant Golf Professional: Signed Normal [facility] Bacteria Ur Culton Bacteria identified Cx Nom (U) ORGANISM ID: 1 10,000 -<50,000 CFU/ml Mixed microbiota No further workup. Mixed microbiota can be due to???urine???contamina tion with skin bacteria at time of collection or presence of a long-term urinary catheter. If a new culture is needed, please consider re-education of the patient on proper midstream collection technique or straight catheterization for???urine???collecti on. Normal [facility] Comment on above: Performed By: #### 6 30-4 #### [facility] CLIA [id number] [address] [place] [address] [place] CNOVon 10-01-2024 CNOV Office Visit (UROLWS ) ELIZABETH MODI ([id number]) 1940 M [facility] Date Time Provider Department 10/01/24 1:00 PM NIKOLAI CONNOR UROLWS During your visit today, we recorded the following information about you: Temperature Pulse Respiration Blood pressure 97.3 degrees 62/minute 14/minute 182/82 Height 1.676 m Luke Taylor LPN 10/01/2024 2:58 PM Signed Verified name and date of . CC Post Void Residual HPI: Elizabeth Modi is a 84 year old male. The patient is here now for an appointment with JAJA Stewart MT, PA-COV. Procedure: Explained procedure to patient and verbalizes understanding. Performed a PVR. Patient urinated and instructed to empty bladder as much as possible just prior to having PVR done using bladder ultrasound scanner. Results of scan: 163 mL The patient tolerated the procedure well. Plan: Appointment with Nikolai Portillo PA-C 10/01/2024 2:58 PM Signed [facility] PATIENT CLINIC NOTE (M) Some elements copied from his previous note, which have been updated where appropriate, and all reflect current medical decision making from date of this visit. SERVICE DATE: October 01, 2024 NAME: Elizabeth Modi GENDER: male CHIEF COMPLAINT: The patient is an 84-year-old male with a history of hematuria, seen today for follow-up. HISTORY OF PRESENT ILLNESS: Hematuria: - Gross hematuria noted in June. - CT urogram performed on June 28. - Cystoscopy was ordered but not completed; patient declined the procedure. - Persistent hematuria, with urine appearing brown today. - Increased water intake reportedly clears up the urine temporarily. - Denies any pain except in the legs. > We discussed the common causes of urinary frequency and urgency, and restricting water intake In hopes to mitigate the need to urinate, we discussed how this behavior more often worsen the problem not improving it, > We discussed increasing daily water intake to 64-84 oz 7a -7p and try to reduce bladder irritants, caffeine, alcohol and acid foods and drink. > Bladder irritants handout available to patient. LABS: No results found for: PSA Creatinine Date Value Ref Range Status 06/18/2024 1.37 (H) 0.73 - 1.22 mg/dL Final 09/01/2022 2.01 (H) 0.73 - 1.22 mg/dL Final 12/24/2021 1.55 (H) 0.50 - 1.40 mg/dL Final Comment: Patients receiving either N-Acetylcysteine (NAC) or Metamizole prior to venipuncture, may have falsely depressed results. No results found for: TESTOST Hematocrit (%) Date Value 09/01/2022 45.3 12/24/2021 41.1 05/15/2020 43.5 12/10/2019 38.9 09/09/2019 27.5 09/08/2019 27.0 No results found for: PSA MEDICATIONS: potassium chloride 20 mEq TbER Take 20 mEq by mouth once daily. iv contrast (will be provided with radiology test) CT Urogram WO/W Inject, intravenously, once for 1 dose.No IV access, insert saline lock prior to the beginning of sedation, infusion, injection of imaging exam. Discontinue saline lock post exam. If Pt. has a central line or IVAD, may access for administration according to line specific nursing protocol. Once exam is complete flush line and de-access according to line specific nursing protocol in the CT contrast administration guidelines link. keTORolac (ACULAR) 0.5 % ophthalmic solution glipiZIDE (GLUCOTROL XL) 2.5 mg 24 hr tablet mupirocin (BACTROBAN) 2 % ointment pantoprazole DR (PROTONIX) 40 mg tablet apixaban (ELIQUIS) 2.5 mg tab(s) 2.5 mg once daily. acetaminophen (TYLENOL) 325 mg tablet Take 650 mg by mouth. aspirin 81 mg chewable tablet Take 81 mg by mouth. amiodarone (PACERONE) 200 mg tablet 200 mg once daily. carvedilol (COREG) 3.125 mg tablet carvedilol 3.125 mg tablet 1 tab po BID empagliflozin (JARDIANCE) 25 mg tablet Take 25 mg by mouth once daily. sacubitril-valsartan (ENTRESTO) 24-26 mg tablet Entresto 24 mg-26 mg tablet 1 tab po BID insulin aspart U-100 (NOVOLOG) 100 unit/mL Novolog U-100 Insulin aspart 100 unit/mL subcutaneous solution sliding scale NOVOLOG U-100 INSULIN ASPART 100 unit/mL polyethylene glycol 3350 17 gram packet Take 17 g by mouth once daily. Dissolve dose in 4 - 8 ounces of liquid and take as directed. multivit-min/iron/foli c acid/K (ADULTS MULTIVITAMIN ORAL) Take by mouth. vit C,V-Jm-qbmxe-lutein-ze axan (PRESERVISION AREDS-2) 250-90-40-1 mg Take 1 Each by mouth. insulin lispro (HUMALOG) 100 unit/mL injection Inject subcutaneously before meals and at bedtime. SSI- if BS- 201-250= 3 units If BS- 251-300= 6 units If BS- 301-350= 9 units If BS- 351-400= 12 units Call MD for BS <70>400 isosorbide mononitrate ER (IMDUR) 30 mg 24 hr tablet Take 30 mg by mouth once daily. predniSONE (DELTASONE) 1 mg tablet Take 1 mg by mouth once daily. citalopram hydrobromide (CELEXA) 10 mg ta (more content not included)... Normal [facility] Beau 10-01-2024 [place] Telephone (UROLWS) ELIZABETH MODI ([id number]) 1940 M [facility] Date Time Provider Department 10/01/24 NIKOLAI CONNOR During your visit today, we recorded the following information about you: Ayan Huffmanette 10/01/2024 2:13 PM Signed May you please submit another order for for Urogram CT. When last appt was canceled the order was not removed from the appt. Sorry for the inconvenience. Marivel PSS Allergies As of Date: 10/01/2024 (No Known Allergies) Date Reviewed: 10/01/2024 Reviewed by: Luke Taylor LPN - Fully Assessed Primary Visit Diagnosis:Gross hematuria [R31.0] Order(s):CT UROGRAM WO/W IVCON [[id number]] Order #: [id number] FUTURE iv contrast (will be provided with radiology test)CT Urogram WO/W Inject, intravenously, once for 1 dose.No IV access, insert saline lock prior to the beginning of sedation, infusion, injection of imaging exam. Discontinue saline lock post exam. If Pt. has a central line or IVAD, may access for administration according to line specific nursing protocol. Once exam is complete flush line and de-access according to line specific nursing protocol in the CT contrast administration guidelines link.Disp: 1 eachRfl: 0 0.9 % sodium chloride (NACL 0.9%) infusionInject 150 mL/hr intravenously one time only for 1 dose. Administer at rate defined per CT contrast administration specifications. To be provided with radiology test.Disp: 1 eachRfl: 0 Prescriptions as of 10/04/2024 - iv contrast (will be provided with radiology test) CT Urogram WO/W Inject, intravenously, once for 1 dose.No IV access, insert saline lock prior to the beginning of sedation, infusion, injection of imaging exam. Discontinue saline lock post exam. If Pt. has a central line or IVAD, may access for administration according to line specific nursing protocol. Once exam is complete flush line and de-access according to line specific nursing protocol in the CT contrast administration guidelines link. - 0.9 % sodium chloride (NACL 0.9%) infusion Inject 150 mL/hr intravenously one time only for 1 dose. Administer at rate defined per CT contrast administration specifications. To be provided with radiology test. - potassium chloride 20 mEq TbER Take 20 mEq by mouth once daily. - iv contrast (will be provided with radiology test) CT Urogram WO/W Inject, intravenously, once for 1 dose.No IV access, insert saline lock prior to the beginning of sedation, infusion, injection of imaging exam. Discontinue saline lock post exam. If Pt. has a central line or IVAD, may access for administration according to line specific nursing protocol. Once exam is complete flush line and de-access according to line specific nursing protocol in the CT contrast administration guidelines link. - keTORolac (ACULAR) 0.5 % ophthalmic solution - glipiZIDE (GLUCOTROL XL) 2.5 mg 24 hr tablet - mupirocin (BACTROBAN) 2 % ointment - pantoprazole DR (PROTONIX) 40 mg tablet - apixaban (ELIQUIS) 2.5 mg tab(s) 2.5 mg once daily. - acetaminophen (TYLENOL) 325 mg tablet Take 650 mg by mouth. - aspirin 81 mg chewable tablet Take 81 mg by mouth. - amiodarone (PACERONE) 200 mg tablet 200 mg once daily. - carvedilol (COREG) 3.125 mg tablet carvedilol 3.125 mg tablet 1 tab po BID - empagliflozin (JARDIANCE) 25 mg tablet Take 25 mg by mouth once daily. - sacubitril-valsartan (ENTRESTO) 24-26 mg tablet Entresto 24 mg-26 mg tablet 1 tab po BID - insulin aspart U-100 (NOVOLOG) 100 unit/mL Novolog U-100 Insulin aspart 100 unit/mL subcutaneous solution sliding scale - NOVOLOG U-100 INSULIN ASPART 100 unit/mL - polyethylene glycol 3350 17 gram packet Take 17 g by mouth once daily. Dissolve dose in 4 - 8 ounces of liquid and take as directed. - multivit-min/iron/foli c acid/K (ADULTS MULTIVITAMIN ORAL) Take by mouth. - vit C,M-Jo-rldom-lutein-ze axan (PRESERVISION AREDS-2) 250-90-40-1 mg Take 1 Each by mouth. - insulin lispro (HUMALOG) 100 unit/mL injection Inject subcutaneously before meals and at bedtime. SSI- if BS- 201-250= 3 units If BS- 251-300= 6 units If BS- 301-350= 9 units If BS- 351-400= 12 units Call MD for BS <70>400 - isosorbide mononitrate ER (IMDUR) 30 mg 24 hr tablet Take 30 mg by mouth once daily. - predniSONE (DELTASONE) 1 mg tablet Take 1 mg by mouth once daily. - citalopram hydrobromide (CELEXA) 10 mg tablet Take 10 mg by mouth once daily. - TOUJEO MAX U-300 SOLOSTAR 300 unit/mL (3 mL) inpn Inject 70 Units subcutaneously daily at bedtime. - insulin lispro (HUMALOG KWIKPEN INSULIN) 100 unit/mL Inject 32 Units subcutaneously two times a day. - metoprolol succinate ER (TOPROL XL) 25 mg 24 hr tablet Take 50 mg by mouth once daily. - atorvastatin (LIPITOR) 40 mg tablet Take 20 mg by mouth once daily. - levothyroxine (SYNTHROID) 25 mcg tablet Take 50 mcg by mouth once (more content not included)... Normal [facility] Anion gap in Serum or Plasma Ordered By: Victor M Rojas on 09-18-2024 Anion gap [Moles/Vol] 14 mmol/L 10-31 [facility] BUN/creatinine ratioOrdered By: Victor M Rojas on 09-18-2024 Urea nitrogen/Creatinine [Mass ratio] 14.2 mg/mg 04-07 [facility] Bilirubin, totalOrdered By: Victor M Rojas on 09-18-2024 Bilirubin [Mass/Vol] 0.55 mg/dL 0.00-1.30 [facility] Calculated very low density lipoprotein (VLDL) cholesterol measurementOrdered By: Victor M Rojas on 09-18-2024 Calculated very low density lipoprotein (VLDL) cholesterol measurement 38 mg/dL [facility] VLDL Cholesterol 38 mg/dL [facility] Carbon dioxide, total [Moles /volume] in Central venous bloodOrdered By: Victor M Rojas on 09-18-2024 CO2 [Moles/Vol] 19.8 mmol/L Low 21.0-32.0 [facility] Chloride assayOrdered By: Stefan Rojas on 09-18-2024 Chloride [Moles/Vol] 102 mmol/L 98-108 [facility] Erythrocyte distribution wid th (RBC) [Ratio]Ordered By: Victor M Rojas on 09-18-2024 Erythrocyte distribution width (RBC) [Entitic vol] 47.1 fL High 35.1-43.9 [facility] Erythrocyte distribution wid th ratioOrdered By: Victor M Rojas on 09-18-2024 Erythrocyte distribution width (RBC) [Ratio] 14.4 % 11.6-14.6 [facility] Erythrocyte distribution wid th standard deviationOrdered By: Victor M Rojas on 09-18-2024 Erythrocyte distribution width (RBC) [Ratio] 47.1 fl High 35.1-43.9 [facility] GFR/1.73 sq M.predicted jacobo g non-blacks MDRD (S/P/Bld) [Vol rate/Area]Ordered By: Victor M Rojas on 09-18-2024 Estimated GFR (MDRD) Non-Af Amer 27 Low >60 [facility] Comment on above: mL/min/1.73m2 CKD-EP I Creatinine Equation (2020) Glomerular filtration rate ( GFR) estimation/1.73 sq m using serum, plasma, or whole bOrdered By: Victor M Rojas on 09-18-2024 GFR/1.73 sq M.predicted among non-blacks MDRD (S/P/Bld) [Vol rate/Area] 27 mL/min/{1.73_m2} Low >60 [facility] Comment on above: mL/min/1.73m2 CKD-EP I Creatinine Equation (2020) Hematocrit Auto (Bld) [Volum e fraction]Ordered By: Victor M Rojas on 09-18-2024 Hematocrit (Bld) [Volume fraction] 41.2 % 40-54 [facility] Hemoglobin A1c percentageOrd ered By: Victor M Rojas on 09-18-2024 HbA1c (Bld) [Mass fraction] 11.3 % >5.7 [facility] Hemoglobin measurementOrdere d By: Victor M Rojas on 09-18-2024 Hemoglobin (Bld) [Mass/Vol] 13.5 g/dL 13.0-16.5 [facility] LDL calc ser/plasOrdered By: Victro M Rojas on 09-18-2024 Cholesterol in LDL [Mass/Vol] 44 mg/dL [facility] Comment on above: Niqnhoxkez=082-114 m g/dL & Higher Gteh=886 mg/dL or greater LDL Cholesterol, Calculated 44 mg/dL [facility] Comment on above: Gmzezuibhv=696-565 m g/dL & Higher Jlja=557 mg/dL or greater Laboratory - Chemistry and C hemistry - challengeOrdered By: Victor M Rojas on 09-18-2024 AST [Catalytic activity/Vol] 43 U/L High <38 [facility] Comment on above: Hemolysis present, R esults could be affected. MCV (mean corpuscular volume ) determinationOrdered By: Victor M Rojas on 09-18-2024 MCV (RBC) [Entitic vol] 89.6 fL 80-94 [facility] Mean corpuscular hemoglobin (MCH) determinationOrdered By: Victor M Rojas on 09-18-2024 MCH (RBC) [Entitic mass] 29.3 pg 27.0-32.0 [facility] Mean corpuscular hemoglobin concentration (MCHC) determinationOrdered By: Victor M Rojas on 09-18-2024 MCHC (RBC) [Mass/Vol] 32.8 g/dL 32-36 [facility] Mean platelet volume determi nationOrdered By: Victor M Rojas on 09-18-2024 Platelet mean volume (Bld) [Entitic vol] 12.0 fL 6.2-12.0 [facility] Platelet countOrdered By: Stefan Rojas on 09-18-2024 Platelets (Bld) [#/Vol] 209 10*3/uL 150-450 [facility] Potassium (Unsp spec) [Mass/ Vol]Ordered By: Victor M Rojas on 09-18-2024 Potassium [Moles/Vol] 4.1 mmol/L 3.3-5.1 [facility] Comment on above: Hemolysis present, R esults could be affected. Potassium measurement (mass/ volume)Ordered By: Victor M Rojas on 09-18-2024 Potassium (Unsp spec) [Mass/Vol] 4.1 mmol/L 3.3-5.1 [facility] Comment on above: Hemolysis present, R esults could be affected. RBC Auto (Bld) [#/Vol]Ordere d By: Victor M Rojas on 09-18-2024 RBC (Bld) [#/Vol] 4.60 10*6/uL 4.6-6.2 [facility] Screening total cholesterol/ high density lipoprotein (HDL) cholesterol ratioOrdered By: Victor M Rojas on 09-18-2024 Cholesterol.total/Cholest giuliana in HDL [Mass ratio] 4.29 {ratio} [facility] Serum creatinine measurement (mass/volume)Ordered By: Victor M Rojas on 09-18-2024 Creatinine [Mass/Vol] 2.35 mg/dL High 0.70-1.20 [facility] Serum globulin measurementOr dered By: Victor M Roajs on 09-18-2024 Globulin (S) [Mass/Vol] 3.4 g/dL 2.2-4.2 [facility] Serum glucose measurement (m ass/volume)Ordered By: Victor M Rojas on 09-18-2024 Glucose [Mass/Vol] 287 mg/dL High 70-99 [facility] Serum or plasma alanine mojica otransferase (ALT) measurementOrdered By: Victor M Rojas on 09-18-2024 ALT [Catalytic activity/Vol] 41 U/L <47 [facility] Serum or plasma albumin akash urement (mass/volume)Ordered By: Victor M Rojas on 09-18-2024 Albumin [Mass/Vol] 3.4 g/dL 3.4-4.8 [facility] Serum or plasma albumin/glob ulin mass ratioOrdered By: Victor M Rojas on 09-18-2024 Albumin/Globulin [Mass ratio] 1.0 {ratio} 0.9-2.4 [facility] Serum or plasma alkaline marielos sphatase measurementOrdered By: Victor M Rojas on 09-18-2024 ALP [Catalytic activity/Vol] 113 U/L 40-129 [facility] Serum or plasma calcium akash urement (mass/volume)Ordered By: Victor M Rojas on 09-18-2024 Calcium [Mass/Vol] 9.0 mg/dL 7.6-11.0 [facility] Serum or plasma cholesterol in HDL measurement (mass/volume)Ordered By: Victor M Rojas on 09-18-2024 Cholesterol in HDL [Mass/Vol] 25 mg/dL Low >40 [facility] Comment on above: National Cholesterol Education Program (NCEP) guidelines:<40 mg/dL: Low HDL-cholesterol (major risk factor for CHD)>= 60 mg/dL: High HDL-cholesterol (negative risk factor for CHD)HDL-cholesterol is affected by a number of factors, e.g. smoking, exercise, hormones, sex and age. Serum or plasma cholesterol measurement (mass/volume)Ordered By: Victor M Rojas on 09-18-2024 Cholesterol [Mass/Vol] 108 mg/dL <201 [facility] Comment on above: Cholesterol level, D esirable <200 mg/dLBorderline high cholesterol 200-239 mg/dLHigh cholesterol >=240 mg/dLRecommendations of the NCEP Adult Treatment Panel for the following risk-cutoff thresholds for the [place] population. Serum or plasma urea nitroge n measurement (mass/volume)Ordered By: Victor M Rojas on 09-18-2024 Urea nitrogen [Mass/Vol] 33 mg/dL High 4-19 [facility] Sodium levelOrdered By: Brandon Rojas on 09-18-2024 Sodium [Moles/Vol] 135 mmol/L 133-145 [facility] TSH DL <= 0.005 mIU/L QnOrde red By: Victor M Rojas on 09-18-2024 Thyroid Stimulating Hormone (TSH) 3.520 uIU/mL 0.300-4.200 [facility] TSH Qn 3.520 uIU/mL 0.300-4.200 [facility] Total proteinOrdered By: Prosper Rojas on 09-18-2024 Protein [Mass/Vol] 6.7 g/dL 5.9-8.4 [facility] Triglycerides measurementOrd ered By: Victor M Rojas on 09-18-2024 Triglyceride [Mass/Vol] 192 mg/dL <199 [facility] Comment on above: The drugs N-Acetylcy steine and Metamizole may falsely depress this assay. Normal range: <150 mg/dLBorderline High: 150-199 mg/dLHigh: 200-499 mg/dLVery High: >500 mg/dL White blood cell (WBC) count Ordered By: Victor M Rojas on 09-18-2024 WBC (Bld) [#/Vol] 8.5 10*3/uL 4.4-11.0 [facility] Gastroenterology Visit Repor ton 09-06-2024 Gastroenterology Visit Report [facility] [address] [place] [address] OFFICE VISIT Date of Service: 09/06/24 MR#: [id number] Acct: [id number] Name: ELIZABETH MODI Rep #: [id number] : 1940 Provider: GILL Jefferson Age/Sex: 84/M [place] [facility] [place]: Signed Intake Vital Signs 01/11/24 07:47 Height 5 ft 6 in Intake Visit Reasons: 4 M FU Chief Complaint: fecal incontinence Is patient in pain?: No Allergies No Known Allergies Allergy (Verified 05/30/23 15:27) Have you fallen in the past year?: No Nurse's Note: OV 09.06.24 Pt here for f/u and reports he is feeling well. Pt continues taking Colestipol daily and feels it is helping a lot and is experiencing diarrhea only once in awhile. PENDING SALE TO [facility] Medical History (Updated 03/04/24 @ 10:[address] 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 Essential hypertension Tinea unguium Vitamin D deficiency Edentulous Tobacco dependence in remission Hypothyroidism Diabetes mellitus type 2, uncontrolled Surgical History (Updated 09/04/23 @ 11:13 by Earline Avila) History of heart surgery History of cardiac catheterization S/P bilateral below knee amputation S/P CABG x 1 History of cardioversion (05/20/20) 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 alcohol intake: current alcohol intake frequency: a few times a month details: Prior heavier, now occasional. substance use type: does not use HPI HPI Chief Complaint: fecal incontinence Details: ELIZABETH MODI, is a 84 M who presents to the office today for f/u. [facility] hospitalization 12.14.22-12.17.22 for management of choledocholithiasis, calculous cholecystis with obstruction and renal mass. US RUQ 12.14.22 left hepatic cyst 2.2x2.5x1.9cm; gallbladder pericholecystic fluid with multiple gallstones and Hunt???s sign + ERCP 12.15.22 entire MBD dilated with obstructing stone, biliary sphincterotomy/balloon extraction; lower MBD dilated; one temporary stent placed in CBD. Surgery 12.15.22 cholecystostomy tube placement. ERCP 06.06.23 entire MBD dilated; choledocholithiasis removed via biliary sphincterotomy/balloon extraction; right MHD dilated; stent removed from biliary tree. Negative for malignancy. Biochemical 08.14.23 LTCF AST 49-ALT 48-AP 123-t. bili 0.4 last OV 06.06.24 Pt feeling well. Has some issues with fecal incontincence. Switch cholstyramine to colestipol 2 grams daily. CMP ordered. 06.07.24; LFTs stable OV 3.; Pt has been doing well. He is onyl having diarrhea once in awhile. He is having a bm once a day. ROS Const Constitutional: No anorexia, fatigue, fever(s), weight change or sleep problems Eyes Eyes: No change in vision ENT ENT: No abnormal hearing, difficulty swallowing, mouth lesions, tongue swelling or throat swelling Resp Respiratory: No cough or shortness of breath Cardio Cardiology: No chest pain at rest, chest pain with exertion, shortness of breath or dyspnea on exertion Gastro GI: No difficulty swallowing Genitourinary Male: No difficulty urinating or burning urination Musc Musculoskeletal: No joint pain, joint swelling, muscle weakness or decreased muscle mass Skin Skin: No hair loss in leg, yellowing of the eye, itchy eyes, rash, skin ulcer or skin swelling Neuro Neurology: No abnormal hearing, abnormal movements, confusion, unsteady gait/balance or memory loss Psych Psychiatric: No anxiety, No confusion and No memory loss Endo Endocrine: No fatigue or weight change Aller/Imm Allergy/Immunologic: No itchy eyes, throat swelling or tongue swelling Jamin/Lymp Hematologic/Lymphatic: No easy bleeding, easy bruising or enlarged lymph nodes Exam Const General: cooperative and comfortable Nutritional Appearance: average body habitus and well nourished HENNH Head: normal to ins (more content not included)... Normal [facility] Anion gap in Serum or Plasma Ordered By: Victor M Rojas on 08-21-2024 Anion gap [Moles/Vol] 14 mmol/L 5-15 [facility] BUN/creatinine ratioOrdered By: Victor M Rojas on 08-21-2024 Urea nitrogen/Creatinine [Mass ratio] 18.2 mg/mg 10-20 [facility] Carbon dioxide, total [Moles /volume] in Central venous bloodOrdered By: Victor M Rojas on 08-21-2024 CO2 [Moles/Vol] 20.5 mmol/L Low 21.0-32.0 [facility] Chloride assayOrdered By: Stefan Rojas on 08-21-2024 Chloride [Moles/Vol] 102 mmol/L 98-108 [facility] GFR/1.73 sq M.predicted jacobo g non-blacks MDRD (S/P/Bld) [Vol rate/Area]Ordered By: Victor M Rojas on 08-21-2024 Estimated GFR (MDRD) Non-Af Amer 31 Low >60 [facility] Comment on above: mL/min/1.73m2 CKD-EP I Creatinine Equation (2020) Glomerular filtration rate ( GFR) estimation/1.73 sq m using serum, plasma, or whole bOrdered By: Victor M Rojas on 08-21-2024 GFR/1.73 sq M.predicted among non-blacks MDRD (S/P/Bld) [Vol rate/Area] 31 mL/min/{1.73_m2} Low >60 [facility] Comment on above: mL/min/1.73m2 CKD-EP I Creatinine Equation (2020) Potassium (Unsp spec) [Mass/ Vol]Ordered By: Victor M Rojas on 08-21-2024 Potassium [Moles/Vol] 4.3 mmol/L 3.3-5.1 [facility] Potassium measurement (mass/ volume)Ordered By: Victor M Rojsa on 08-21-2024 Potassium (Unsp spec) [Mass/Vol] 4.3 mmol/L 3.3-5.1 [facility] Serum creatinine measurement (mass/volume)Ordered By: Victor M Rojas on 08-21-2024 Creatinine [Mass/Vol] 2.07 mg/dL High 0.70-1.20 [facility] Serum glucose measurement (m ass/volume)Ordered By: Victor M Rojas on 08-21-2024 Glucose [Mass/Vol] 198 mg/dL High 70-99 [facility] Serum or plasma albumin akash urement (mass/volume)Ordered By: Victor M Rojas on 08-21-2024 Albumin [Mass/Vol] 3.3 g/dL Low 3.4-4.8 [facility] Serum or plasma calcium akash urement (mass/volume)Ordered By: Victor M Rojas on 08-21-2024 Calcium [Mass/Vol] 8.8 mg/dL 7.6-11.0 [facility] Serum or plasma urea nitroge n measurement (mass/volume)Ordered By: Victor M Rojas on 08-21-2024 Urea nitrogen [Mass/Vol] 38 mg/dL High 4-19 [facility] Serum phosphorus measurement Ordered By: Victor M Rojas on 08-21-2024 Phosphorus Level 4.2 mg/dL 2.7-4.5 [facility] Sodium levelOrdered By: Brandon Rojas on 08-21-2024 Sodium [Moles/Vol] 136 mmol/L 133-145 [facility] Random urine microalbumin me asurementOrdered By: Victor M Rojas on 08-01-2024 Urine Random Microalbumin 583.0 mg/L NO RANGE EST. [facility] Urine albumin/creatinine rat io for detection of microalbuminuriaOrdered By: Victor M Rojas on 08-01-2024 Urine Microalbumin/Creatinine Ratio 1371.8 mg/g CRE High <30 [facility] Urine creatinine measurement (mass/volume)Ordered By: Victor M Rojas on 08-01-2024 Creatinine (U) [Mass/Vol] 42.50 mg/dL NO RANGE EST. [facility] Blood urea nitrogen (BUN)/cr eatinine ratioOrdered By: Victor M Rojas on 07-24-2024 Urea nitrogen/Creatinine [Mass ratio] 20.5 mg/mg High 10-20 [facility] Carbon dioxide measurementOr dered By: Victor M Rojas on 07-24-2024 CO2 [Moles/Vol] 21.0 mmol/L 21.0-32.0 [facility] Chloride measurementOrdered By: Victor M Rojas on 07-24-2024 Chloride [Moles/Vol] 106 mmol/L 98-107 [facility] Estimated glomerular filtrat ion rate (GFR) AmericanOrdered By: Victor M Rojas on 07-24-2024 Estimated GFR (MDRD) Amer 44 mL/min Low >60 [facility] Comment on above: GFR Calc Glomerular filtration rate ( GFR) estimationOrdered By: Victor M Rojas on 07-24-2024 Estimated GFR (MDRD) Non-Af Amer 36 mL/min Low >60 [facility] Comment on above: Non- GFR Calc GFR/1.73 sq M.predicted among non-blacks MDRD (S/P/Bld) [Vol rate/Area] 36 mL/min/{1.73_m2} Low >60 [facility] Comment on above: Non- GFR Calc Glucose measurementOrdered B y: Victor M Rojas on 07-24-2024 Glucose [Mass/Vol] 230 mg/dL High 74-106 [facility] Comment on above: Glucose result great er than or equal to 200 mg/dLsuggests DIABETES MELLITUS per A.D.A. criteria. Hemoglobin A1c percentageOrd ered By: Victor M Rojas on 07-24-2024 HbA1c (Bld) [Mass fraction] 8.3 % High 3.8-5.6 [facility] Comment on above: Normal < 5.7 % Predi abetic 5.7 - 6.4 % Diabetic >or= 6.5 % Please note range changes. Phosphorus measurementOrdere d By: Victor M Rojas on 07-24-2024 Phosphorus Level 3.4 mg/dL 2.5-4.9 [facility] Potassium measurementOrdered By: Victor M Rojas on 07-24-2024 Potassium [Moles/Vol] 4.3 mmol/L 3.5-5.1 [facility] Serum or plasma albumin akash urement (mass/volume)Ordered By: Victor M Rojas on 07-24-2024 Albumin [Mass/Vol] 2.7 g/dL Low 3.2-5.0 [facility] Serum or plasma calcium akash urement (mass/volume)Ordered By: Victor M Rojas on 07-24-2024 Calcium [Mass/Vol] 8.2 mg/dL Low 8.5-10.1 [facility] Serum or plasma creatinine m easurement (mass/volume)Ordered By: Victor M Rojas on 07-24-2024 Creatinine [Mass/Vol] 1.90 mg/dL High 0.70-1.30 [facility] Comment on above: The validity of the calculated GFR & GFRAA in patients over 70 years has not been determined. Clinical correlation is essential. Serum or plasma urea nitroge n measurement (mass/volume)Ordered By: Victor M Rojas on 07-24-2024 Urea nitrogen [Mass/Vol] 39 mg/dL High 7-18 [facility] Sodium levelOrdered By: Brandon Rojas on 07-24-2024 Sodium [Moles/Vol] 135 mmol/L Low 136-[address] [facility] [address] UROGRAM WO/W IVCONon 01-1 CT UROGRAM WO/W IVCON * * *Final Report* * * DATE OF EXAM: Jun 28 2024 2:26PM [facility] 0560 - CT UROGRAM WO/W IVCON / PROCEDURE REASON: Gross hematuria * * * * Physician Interpretation * * * * EXAMINATION: CT ABDOMEN AND PELVIS WITHOUT AND WITH IV CONTRAST, INCLUDING EXCRETORY PHASE IMAGING (CT UROGRAM) 3D RECONSTRUCTIONS CLINICAL HISTORY: Gross hematuria. TECHNIQUE: CT urogram protocol including unenhanced, renal parenchymal phase and excretory phase renal imaging was obtained following IV contrast. Normal saline was also administered IV. No oral contrast was given. 3D image post-processing was performed and archived at the request of the referring physician, on the CT scanner workstation without concurrent physician supervision. MQ: CTU_2 Contrast: IV: 125 ml of Omnipaque 350 IV Saline: 100 ml of 0.9% NACL Solution Oral Contrast: None CT Radiation dose: Integrated dose-length product (DLP) for this visit = 2167 mGy*cm. CT Dose Reduction Employed: Automated exposure control(AEC) and iterative recon COMPARISON: CT angiogram abdomen/pelvis, 02/28/2020. RESULT: Kidneys and urinary tract: Right: No stones. Multiple perihilar calcifications are due to extensive atherosclerotic vascular calcifications. Few punctate benign-appearing hypodensities. No solid mass. The opacified calices, renal pelvis and ureter are normal without dilation, filling defect, or stricture. Left: Punctate nonobstructing kidney stones. 3.2 x 2.9 cm solid renal neoplasm in the lateral midpole (9:61), with a few internal calcifications and a few small cystic spaces but with predominantly solid, low level enhancement. This measured 3.0 x 2.4 cm on the 02/28/2020 CT angiogram. It abuts the renal sinus fat, with no renal vein or collecting system invasion. The opacified calices, renal pelvis and ureter are normal without dilation, filling defect, or stricture. Bladder: Mildly thick-walled and trabeculated. No focal, polypoid filling defect. No bladder calculus. Abdomen and Pelvis: Liver: Benign left lobe cyst and subcentimeter benign-appearing hypodensities. No suspicious liver lesion. Biliary: No bile duct dilation. Contracted gallbladder with gallstones. Spleen: No mass. No splenomegaly. Pancreas: No mass or duct dilation. Adrenals: No mass. GI tract: No dilation or wall thickening. Sigmoid diverticulosis. Rectum distended with stool but without CT findings of stercoral colitis. Lymph nodes: Few borderline periportal nodes are stable since 2020 probably benign/reactive. No retroperitoneal lymphadenopathy. Mesentery/Peritoneum: No ascites or mass. Retroperitoneum: No mass. Vasculature: - Abdominal aorta and iliac arteries: Atherosclerotic calcifications without aneurysm. Both superficial femoral arteries are chronically occluded, unchanged since the 2020 CT angiogram. - Celiac and SMA: Atherosclerotic calcifications at the origins. - Portal venous system (SMV, splenic vein, portal vein and branches): Patent. - Hepatic veins: Patent. Pelvis: Asymmetric nodular enhancement along the left posterolateral peripheral zone of the prostate gland (9:146). No pelvic ascites or collection Bones and Soft Tissues: Degenerative changes. No aggressive appearing bone lesions. Lower thorax: Unremarkable. Localizer images: No additional findings. IMPRESSION: 3.2 cm solid LEFT lateral midpole renal neoplasm, only minimally increased in size since 2020. This abuts the renal sinus fat but does not invade the renal vein or collecting system. No abdominopelvic metastasis. Punctate non-obstructing left nephrolithiasis. Asymmetric nodular enhancement in the LEFT posterolateral peripheral zone of the prostate gland, which can be seen in the setting of prostate cancer. Correlate with PSA and digital rectal examination. Urinary bladder is mildly thick-walled and trabeculated, probably related to chronic outlet obstruction from the mildly enlarged prostate gland. ACTIONABLE RESULT: FOLLOW-UP Acuity: Actionable Findings: Male Reproductive Tract Routing Code: GU_2 Recommendation: Unlisted Recommendation (see report) Time Frame: At the discretion of the clinical team. COMMUNICATION: Results will be communicated with the ordering provider via [employer] staff message or phone message by [facility] within 2 business days of report finalization. --END OF FINDING-- Assistant Golf Professional: ONEL Transcribe Date/Time: Jul 01 2024 9:40P Dictated by : JARAD ARCOS MD This examination was interpreted and the report reviewed and electronically signed by: JARAD ARCOS MD on Jul 01 2024 9:53PM EST [id number] [id number] Invalid Interpretation Code [facility] Estimated glomerular filtrat ion rate (GFR) AmericanOrdered By: Victor M Rojas on 06-27-2024 Estimated GFR (MDRD) Amer 37 mL/min Low >60 [facility] Comment on above: GFR Calc Glomerular filtration rate ( GFR) estimationOrdered By: Victor M Rojas on 06-27-2024 Estimated GFR (MDRD) Non-Af Amer 31 mL/min Low >60 [facility] Comment on above: Non- GFR Calc Serum or plasma creatinine m easurement (mass/volume)Ordered By: Victor M Rojas on 06-27-2024 Creatinine [Mass/Vol] 2.20 mg/dL High 0.70-1.30 [facility] Comment on above: The validity of the calculated GFR & GFRAA in patients over 70 years has not been determined. Clinical correlation is essential. Beau 06-21-2024 JONAS Telephone (UROLWS) ELIZABETH MODI ([id number]) 1940 [facility] Date Time Provider Department 06/21/24 NIKOLAI CONNOR During your visit today, we recorded the following information about you: Anaid Payne MA 06/21/2024 4:28 PM Signed ----- Message from Nikolai Connor PA-C sent at 06/21/2024 3:54 PM EST ----- No infection in the urine No cancer cells in urine, please continue the rest of the testing JAJA Stewart, [place], Susan Lopez MA 06/25/2024 8:47 AM Signed LM for Angelic to contact office to inform. GAYATRI Evans Kimberly, LPN 07/05/2024 4:27 PM Signed Called Angelic. No answer- left message to call clinic. MARV Morocho Kimberly PROPOSAL DEVELOPMENT MANAGER 07/09/2024 3:50 PM Signed Called Angelic. No answer- left message to call clinic. MARV Morocho Kimberly MARV 07/09/2024 3:50 PM Signed Letter sent to patient that we have not been able to contact Angelic. Luke Taylor LPN Allergies As of Date: 06/21/2024 (No Known Allergies) Date Reviewed: 06/18/2024 Reviewed by: Susan Joy MA - Fully Assessed Reason for Visit: Results [95] Prescriptions as of 07/09/2024 - iv contrast (will be provided with radiology test) CT Urogram WO/W Inject, intravenously, once for 1 dose.No IV access, insert saline lock prior to the beginning of sedation, infusion, injection of imaging exam. Discontinue saline lock post exam. If Pt. has a central line or IVAD, may access for administration according to line specific nursing protocol. Once exam is complete flush line and de-access according to line specific nursing protocol in the CT contrast administration guidelines link. - keTORolac (ACULAR) 0.5 % ophthalmic solution - glipiZIDE (GLUCOTROL XL) 2.5 mg 24 hr tablet - mupirocin (BACTROBAN) 2 % ointment - pantoprazole DR (PROTONIX) 40 mg tablet - apixaban (ELIQUIS) 2.5 mg tab(s) 2.5 mg once daily. - acetaminophen (TYLENOL) 325 mg tablet Take 650 mg by mouth. - aspirin 81 mg chewable tablet Take 81 mg by mouth. - amiodarone (PACERONE) 200 mg tablet 200 mg once daily. - carvedilol (COREG) 3.125 mg tablet carvedilol 3.125 mg tablet 1 tab po BID - empagliflozin (JARDIANCE) 25 mg tablet Jardiance 25 mg tablet 1 tab po daily - sacubitril-valsartan (ENTRESTO) 24-26 mg tablet Entresto 24 mg-26 mg tablet 1 tab po BID - insulin aspart U-100 (NOVOLOG) 100 unit/mL Novolog U-100 Insulin aspart 100 unit/mL subcutaneous solution sliding scale - NOVOLOG U-100 INSULIN ASPART 100 unit/mL - polyethylene glycol 3350 17 gram packet Take 17 g by mouth once daily. Dissolve dose in 4 - 8 ounces of liquid and take as directed. - multivit-min/iron/foli c acid/K (ADULTS MULTIVITAMIN ORAL) Take by mouth. - vit C,N-Cy-uguvs-lutein-ze axan (PRESERVISION AREDS-2) 250-90-40-1 mg Take 1 Each by mouth. - insulin lispro (HUMALOG) 100 unit/mL injection Inject subcutaneously before meals and at bedtime. SSI- if BS- 201-250= 3 units If BS- 251-300= 6 units If BS- 301-350= 9 units If BS- 351-400= 12 units Call MD for BS <70>400 - isosorbide mononitrate ER (IMDUR) 30 mg 24 hr tablet Take 30 mg by mouth once daily. - predniSONE (DELTASONE) 1 mg tablet Take 1 mg by mouth once daily. - citalopram hydrobromide (CELEXA) 10 mg tablet Take 10 mg by mouth once daily. - TOUJEO MAX U-300 SOLOSTAR 300 unit/mL (3 mL) inpn Inject 70 Units subcutaneously daily at bedtime. - insulin lispro (HUMALOG KWIKPEN INSULIN) 100 unit/mL Inject 32 Units subcutaneously twice daily. - metoprolol succinate ER (TOPROL XL) 25 mg 24 hr tablet Take 50 mg by mouth once daily. - atorvastatin (LIPITOR) 40 mg tablet Take 20 mg by mouth once daily. - levothyroxine (SYNTHROID) 25 mcg tablet Take 50 mcg by mouth once daily. - lisinopril (ZESTRIL, PRINIVIL) 10 mg tablet Take 10 mg by mouth once daily. Problem List As Of Date 06/21/2024 Noted Resolved Gangrene of foot (HCC) [I96] 08/21/2019 Diabetes (HCC) [E11.9] 08/21/2019 HTN (hypertension) [I10] 08/21/2019 Dyslipidemia [E78.5] 08/21/2019 Hypothyroidism [E03.9] 08/21/2019 Malnutrition of moderate degree (HCC) [E44.0] 08/22/2019 PVD (peripheral vascular disease) (HCC) [I73.9] 12/07/2019 Below knee amputation (HCC) [S88.119A] 12/07/2019 Nonhealing surgical wound [T81.89XA] 12/09/2019 Left renal mass [N28.89] 05/05/2023 Encounter Status:Closed by LUKE TAYLOR on 07/09/24 Normal [facility] Absolute neutrophil countOrd ered By: Victor M Rojas on 06-20-2024 Neutrophils (Bld) [#/Vol] 5.5 10*3/uL 2.0-7.7 [facility] Albumin to globulin ratioOrd ered By: Victor M Rojas on 06-20-2024 Albumin/Globulin [Mass ratio] 0.7 {ratio} Low 0.9-2.4 [facility] Basophil percentageOrdered B y: Victor M Rojas on 06-20-2024 Basophils/100 WBC (Bld) 0.3 % 0-1 [facility] Bilirubin, totalOrdered By: Victor M Rojas on 06-20-2024 Bilirubin [Mass/Vol] 0.70 mg/dL 0.20-1.00 [facility] Comment on above: For patients on eltr ombopag therapy, use of Dimension Ralls TBIL is not recommended. Blood urea nitrogen (BUN)/cr eatinine ratioOrdered By: Victor M Rojas on 06-20-2024 Urea nitrogen/Creatinine [Mass ratio] 19.0 mg/mg 10-20 [facility] Carbon dioxide measurementOr dered By: VictorM Rojas on 06-20-2024 CO2 [Moles/Vol] 24.0 mmol/L 21.0-32.0 [facility] Chloride measurementOrdered By: Victor M Rojas on 06-20-2024 Chloride [Moles/Vol] 104 mmol/L 98-107 [facility] Eosinophil percentageOrdered By: Victor M Rojas on 06-20-2024 Eosinophils/100 WBC (Bld) 2.5 % 0-5 [facility] Erythrocyte distribution wid th (RBC) [Ratio]Ordered By: Victor M Rojas on 06-20-2024 Erythrocyte distribution width (RBC) [Entitic vol] 47.8 fL High 35.1-43.9 [facility] Erythrocyte distribution wid th ratioOrdered By: Victor M Rojas on 06-20-2024 Erythrocyte distribution width (RBC) [Ratio] 14.7 % High 11.6-14.6 [facility] Estimated glomerular filtrat ion rate (GFR) AmericanOrdered By: Victor M Rojas on 06-20-2024 Estimated GFR (MDRD) Amer 51 mL/min Low >60 [facility] Comment on above: GFR Calc Glomerular filtration rate ( GFR) estimationOrdered By: Victor M Rojas on 06-20-2024 Estimated GFR (MDRD) Non-Af Amer 42 mL/min Low >60 [facility] Comment on above: Non- GFR Calc Glucose measurementOrdered B y: Victor M Rojas on 06-20-2024 Glucose [Mass/Vol] 190 mg/dL High 74-106 [facility] Comment on above: Fasting Glucose resu lt greater than or equal to 126 mg/dL suggests DIABETES MELLITUS per A.D.A. criteria. Hematocrit Auto (Bld) [Volum e fraction]Ordered By: Victor M Rojas on 06-20-2024 Hematocrit (Bld) [Volume fraction] 42.8 % 40-54 [facility] Hemoglobin A1c percentageOrd ered By: Victor M Rojas on 06-20-2024 HbA1c (Bld) [Mass fraction] 8.3 % High 3.8-5.6 [facility] Comment on above: Normal < 5.7 % Predi abetic 5.7 - 6.4 % Diabetic >or= 6.5 % Please note range changes. Hemoglobin measurementOrdere d By: Victor M Rojas on 06-20-2024 Hemoglobin (Bld) [Mass/Vol] 13.6 g/dL 13.0-16.5 [facility] High density lipoprotein (HD L) measurementOrdered By: Victor M Rojas on 06-20-2024 Cholesterol in HDL [Mass/Vol] 29 mg/dL Low >40 [facility] Comment on above: The drugs N-Acetylcy steine and Metamizole may falsely depress this assay. Reference Range HDL <40 mg/dL Low HDL Cholesterol HDL >or= 60 mg/dL High HDL Cholesterol Immature granulocytes/100 WB C Auto (Bld)Ordered By: Victor M Rojas on 06-20-2024 Immature granulocytes/100 WBC (Bld) 1.900 % High 0.0-0.9 [facility] Comment on above: IG% - Immature Granu locytes (promyelocytes, myelocytes and metamyelocytes) > 1% indicates that a LEFT SHIFT is Present. Laboratory - Chemistry and C hemistry - challengeOrdered By: Victor M Rojas on 06-20-2024 AST [Catalytic activity/Vol] 37 U/L 15-37 [facility] Comment on above: Slight Hemolysis, Re sult may be falsely increased. Low density lipoprotein (LDL ) cholesterol measurementOrdered By: Victor M Rojas on 06-20-2024 Cholesterol in LDL [Mass/Vol] 46 mg/dL 0-130 [facility] Lymphocytes Auto (Unsp spec) [#/Vol]Ordered By: Victor M Rojas on 06-20-2024 Lymphocytes (Bld) [#/Vol] 1.97 10*3/uL 0.83-4.5 1 [facility] Lymphocytes/100 WBC Auto (Un sp spec)Ordered By: Victor M Rojas on 06-20-2024 Lymphocytes/100 WBC (Bld) 21.8 % 19-41 [facility] MCV (mean corpuscular volume ) determinationOrdered By: Victor M Rojas on 06-20-2024 MCV (RBC) [Entitic vol] 89.9 fL 80-94 [facility] Mean corpuscular hemoglobin (MCH) determinationOrdered By: Victor M Rojas on 06-20-2024 MCH (RBC) [Entitic mass] 28.6 pg 27.0-32.0 [facility] Mean corpuscular hemoglobin concentration (MCHC) determinationOrdered By: Victor M Rojas on 06-20-2024 MCHC (RBC) [Mass/Vol] 31.8 g/dL Low 32-36 [facility] Mean platelet volume determi nationOrdered By: Victor M Rojas on 06-20-2024 Platelet mean volume (Bld) [Entitic vol] 11.9 fL 6.2-12.0 [facility] Monocyte percentageOrdered B y: Victor M Rojas on 06-20-2024 Monocytes/100 WBC (Bld) 13.0 % High 0-10 [facility] Neutrophil percentageOrdered By: Victor M Rojas on 06-20-2024 Neutrophils/100 WBC (Bld) 60.5 % 47-70 [facility] Nucleated red blood cell per centageOrdered By: Victor M Rojas on 06-20-2024 Nucleated RBC/100 WBC (Bld) [Ratio] 0 % 0-5 [facility] Platelet countOrdered By: Stefan Rojas on 06-20-2024 Platelets (Bld) [#/Vol] 239 10*3/uL 150-450 [facility] Potassium measurementOrdered By: Victor M Rojas on 06-20-2024 Potassium [Moles/Vol] 4.2 mmol/L 3.5-5.1 [facility] Comment on above: Slight Hemolysis, Re sult may be falsely increased. RBC Auto (Bld) [#/Vol]Ordere d By: Victor M Rojas on 06-20-2024 RBC (Bld) [#/Vol] 4.76 10*6/uL 4.6-6.2 [facility] Serum anion gap measurementO rdered By: Victor M Rojas on 06-20-2024 Anion gap [Moles/Vol] 8 mmol/L 5-15 [facility] Serum globulin measurementOr dered By: Victor M Rojas on 06-20-2024 Globulin (S) [Mass/Vol] 3.9 g/dL 2.2-4.2 [facility] Serum or plasma alanine mojica otransferase (ALT) measurementOrdered By: Victor M Rjoas on 06-20-2024 ALT [Catalytic activity/Vol] 45 U/L 16-61 [facility] Serum or plasma albumin akash urement (mass/volume)Ordered By: Victor M Rojas on 06-20-2024 Albumin [Mass/Vol] 2.8 g/dL Low 3.2-5.0 [facility] Serum or plasma alkaline marielos sphatase measurementOrdered By: Victor M Rojas on 06-20-2024 ALP [Catalytic activity/Vol] 123 U/L High 45-117 [facility] Serum or plasma calcium akash urement (mass/volume)Ordered By: Victor M Rojas on 06-20-2024 Calcium [Mass/Vol] 8.4 mg/dL Low 8.5-10.1 [facility] Serum or plasma cholesterol measurement (mass/volume)Ordered By: Victor M Rojas on 06-20-2024 Cholesterol [Mass/Vol] 104 mg/dL <200 [facility] Comment on above: <200 mg/dL Desirable 200-240 mg/dL Borderline >240 mg/dL High Risk Serum or plasma creatinine m easurement (mass/volume)Ordered By: Victor M Rojas on 06-20-2024 Creatinine [Mass/Vol] 1.68 mg/dL High 0.70-1.30 [facility] Comment on above: The validity of the calculated GFR & GFRAA in patients over 70 years has not been determined. Clinical correlation is essential. Serum or plasma urea nitroge n measurement (mass/volume)Ordered By: Victor M Rojas on 06-20-2024 Urea nitrogen [Mass/Vol] 32 mg/dL High 7-18 [facility] Sodium levelOrdered By: Brandon Rojas on 06-20-2024 Sodium [Moles/Vol] 136 mmol/L 136-145 [facility] TSH QnOrdered By: Victor M Rojas on 06-20-2024 Thyroid Stimulating Hormone (TSH) 2.290 uIU/mL 0.358-3.740 [facility] Total proteinOrdered By: Prosper Rojas on 06-20-2024 Protein [Mass/Vol] 6.7 g/dL 6.4-8.2 [facility] Triglycerides measurementOrd ered By: Victor M Rojas on 06-20-2024 Triglyceride [Mass/Vol] 145 mg/dL <199 [facility] Comment on above: The drugs N-Acetylcy steine and Metamizole may falsely depress this assay.Serum Triglycerides Reference Interval Normal <150 mg/dL Borderline high 150 - 199 mg/dL High 200 - 499 mg/dL Very High > or = 500 mg/dL Very low density lipoprotein (VLDL) cholesterol measurementOrdered By: Victor M Rojas on 06-20-2024 VLDL Cholesterol 29 mg/dL 5-40 [facility] White blood cell (WBC) count Ordered By: Victor M Rojas on 06-20-2024 WBC (Bld) [#/Vol] 9.1 10*3/uL 4.4-11.0 [facility] Bacteria Ur Culton Bacteria identified Cx Nom (U) ORGANISM ID: 1 10,000 -<50,000 CFU/ml Mixed microbiota No further workup. Mixed microbiota can be due to???urine???contamina tion with skin bacteria at time of collection or presence of a long-term urinary catheter. If a new culture is needed, please consider re-education of the patient on proper midstream collection technique or straight catheterization for???urine???collecti on. Normal [facility] Comment on above: Performed By: #### 6 30-4 #### [facility] CLIA [id number] [address] [place] [address] OF [facility] CNOVon 06-18-2024 CNOV Office Visit (UROLWS ) ELIZABETH MODI ([id number]) 1940 [facility] Date Time Provider Department 06/18/24 1:00 PM NIKOLAI CONNOR UROVILMA During your visit today, we recorded the following information about you: Nikolai Connor PA-C 06/18/2024 4:05 PM Signed [facility] NEW PATIENT CLINIC NOTE SERVICE DATE: June 18, 2024 NAME: Elizabeth Modi CHIEF COMPLAINT: Hematuria HISTORY OF PRESENT ILLNESS: Elizabeth Modi is a 83 year old male an new patient here for The patient reports Hematuria with a few episodes of hematuria Will get Urine sample today for culture and cytology Schedule Cystoscopy at [place] And CT Urogram at [place] We discussed the need for full hematuria workup due to the Gross Blood in the urine. These tests and procedures will be ordered today. LUTS: EMPTIES COMPLETELY: Yes UTI: No and 1 past 12 months GROSS HEMATURIA: yes LABS: No results found for: PSA No results found for: TESTOST Hematocrit (%) Date Value 09/01/2022 45.3 12/24/2021 41.1 05/15/2020 43.5 12/10/2019 38.9 09/09/2019 27.5 09/08/2019 27.0 No results found for: PSA Creatinine Date Value Ref Range Status 06/18/2024 1.37 (H) 0.73 - 1.22 mg/dL Final 09/01/2022 2.01 (H) 0.73 - 1.22 mg/dL Final 12/24/2021 1.55 (H) 0.50 - 1.40 mg/dL Final Comment: Patients receiving either N-Acetylcysteine (NAC) or Metamizole prior to venipuncture, may have falsely depressed results. MEDICATIONS: iv contrast (will be provided with radiology test) CT Urogram WO/W Inject, intravenously, once for 1 dose.No IV access, insert saline lock prior to the beginning of sedation, infusion, injection of imaging exam. Discontinue saline lock post exam. If Pt. has a central line or IVAD, may access for administration according to line specific nursing protocol. Once exam is complete flush line and de-access according to line specific nursing protocol in the CT contrast administration guidelines link. 0.9 % sodium chloride (NACL 0.9%) infusion Inject 150 mL/hr intravenously one time only for 1 dose. Administer at rate defined per CT contrast administration specifications. To be provided with radiology test. keTORolac (ACULAR) 0.5 % ophthalmic solution glipiZIDE (GLUCOTROL XL) 2.5 mg 24 hr tablet mupirocin (BACTROBAN) 2 % ointment pantoprazole DR (PROTONIX) 40 mg tablet apixaban (ELIQUIS) 2.5 mg tab(s) 2.5 mg once daily. acetaminophen (TYLENOL) 325 mg tablet Take 650 mg by mouth. aspirin 81 mg chewable tablet Take 81 mg by mouth. amiodarone (PACERONE) 200 mg tablet 200 mg once daily. carvedilol (COREG) 3.125 mg tablet carvedilol 3.125 mg tablet 1 tab po BID empagliflozin (JARDIANCE) 25 mg tablet Jardiance 25 mg tablet 1 tab po daily sacubitril-valsartan (ENTRESTO) 24-26 mg tablet Entresto 24 mg-26 mg tablet 1 tab po BID insulin aspart U-100 (NOVOLOG) 100 unit/mL Novolog U-100 Insulin aspart 100 unit/mL subcutaneous solution sliding scale NOVOLOG U-100 INSULIN ASPART 100 unit/mL polyethylene glycol 3350 17 gram packet Take 17 g by mouth once daily. Dissolve dose in 4 - 8 ounces of liquid and take as directed. multivit-min/iron/foli c acid/K (ADULTS MULTIVITAMIN ORAL) Take by mouth. vit C,A-Tg-ybtyh-lutein-ze axan (PRESERVISION AREDS-2) 250-90-40-1 mg Take 1 Each by mouth. insulin lispro (HUMALOG) 100 unit/mL injection Inject subcutaneously before meals and at bedtime. SSI- if BS- 201-250= 3 units If BS- 251-300= 6 units If BS- 301-350= 9 units If BS- 351-400= 12 units Call MD for BS <70>400 (Patient not taking: Reported on 05/05/2023) isosorbide mononitrate ER (IMDUR) 30 mg 24 hr tablet Take 30 mg by mouth once daily. (Patient not taking: Reported on 05/05/2023) predniSONE (DELTASONE) 1 mg tablet Take 1 mg by mouth once daily. (Patient not taking: Reported on 05/05/2023) citalopram hydrobromide (CELEXA) 10 mg tablet Take 10 mg by mouth once daily. TOUJEO MAX U-300 SOLOSTAR 300 unit/mL (3 mL) inpn Inject 70 Units subcutaneously daily at bedtime. (Patient not taking: Reported on 05/05/2023) insulin lispro (HUMALOG KWIKPEN INSULIN) 100 unit/mL Inject 32 Units subcutaneously twice daily. (Patient not taking: Reported on 05/05/2023) metoprolol succinate ER (TOPROL XL) 25 mg 24 hr tablet Take 50 mg by mouth once daily. (Patient not taking: Reported on 05/05/2023) atorvastatin (LIPITOR) 40 mg tablet Take 20 mg by mouth once daily. levothyroxine (SYNTHROID) 25 mcg tablet Take 50 mcg by mouth once daily. lisinopril (ZESTRIL, PRINIVIL) 10 mg tablet Take 10 mg by mouth once daily. (Patient not taking: Reported on 05/05/2023) PAST MEDICAL HISTORY: PAST MEDICAL HISTORY Diagnosis Date Anxiety and depression Chronic a-fib (HCC) Chronic kidney disease no dialysis. Dr. Montgomery in [place] Congestive heart failure (HCC) DM (diab (more content not included)... Normal [facility] CREATININE BLDOrdered By: Amelia August on 06-18-2024 Creatinine [Mass/Vol] 1.37 mg/dL High 0.73 - 1.22 mg/dL [facility] GFR/1.73 sq M.predicted among non-blacks MDRD (S/P/Bld) [Vol rate/Area] 52 mL/min/{1.73_m2} Low - PINF [facility] Comment on above: Estimated Glomerular Filtration Rate (eGFR) is calculated using the 2020 CKD-EPI creatinine equation. This equation utilizes serum creatinine, sex, and age as parameters. The creatinine assay has traceable calibration to isotope dilution-mass spectrometry. Refer to KDIGO guidelines for clinical interpretation. In patients with unstable renal function, e.g. those with acute kidney injury, the eGFR may not accurately reflect actual GFR. Interpretation and review of laboratory results Abnormal [facility] CREATININE BLDon 06-18-2024 Creatinine [Mass/Vol] 1.37 mg/dL High 0.73-1.22 [facility] Comment on above: Order Comment: Speci men Type: BLOOD SPECIMEN Ordering Facility: [facility] Address: [address] [place] [address] Performed By: #### C RET1 #### [facility] CLAZ [id number] [address] [place] [address] [place] Creatinine and Glomerular filtration rate.predicted panel (S/P/Bld) 52 mL/min/1.73m??? Low >=60 [facility] Comment on above: Order Comment: Speci men Type: BLOOD SPECIMEN Ordering Facility: [facility] Address: [address] [place] [address] Result Comment: Alma Delia mated Glomerular Filtration Rate (eGFR) is calculated using the 2020 CKD-EPI creatinine equation. This equation utilizes serum creatinine, sex, and age as parameters. The creatinine assay has traceable calibration to isotope dilution-mass spectrometry. Refer to KDIGO guidelines for clinical interpretation. In patients with unstable renal function, e.g. those with acute kidney injury, the eGFR may not accurately reflect actual GFR. Performed By: #### C RET1 #### [facility] CLIA [id number] [address] [place] [address] [place] CYTOLOGY NON-GYNon CASE REPORT Normal [facility] Comment on above: Order Comment: Speci men Type: URINE SPECIMEN Ordering Facility: [facility] Address: [address] [place] [address] Result Comment: [facility] Cytology Report Case: [id number] Authorizing Provider: Nikolai Connor PA-C Collected: 06/18/2024 01:58 PM Ordering Location: Urology Received: 06/18/2024 02:43 PM Pathologist: Eric Sutherland MD Specimen: Urine, Cystoscopic Performed By: #### C YTONON #### [facility] CLIA [id number] [address] [place] [address] [place] CLINICAL HISTORY hematuria Normal [facility] Comment on above: Order Comment: Speci men Type: URINE SPECIMEN Ordering Facility: [facility] Address: [address] [place] [address] Performed By: #### C YTONON #### [facility] CLIA [id number] [address] [place] [address] [place] FINAL DIAGNOSIS Normal [facility] Comment on above: Order Comment: Speci men Type: URINE SPECIMEN Ordering Facility: [facility] Address: [address] [place] [address] Result Comment: A - Urine, Cystoscopic Negative for high-grade urothelial carcinoma. Acute and chronic inflammation. Blood. Performed By: #### C YTONON #### [facility] CLIA [id number] [address] [place] [address] [place] FINAL PERFORMING LAB Normal [facility] Comment on above: Order Comment: Speci men Type: URINE SPECIMEN Ordering Facility: [facility] Address: [address] [place] [address] Result Comment: Tech nical component, sheet metal insulator screening performed at [facility], [address] [place] [address] CLIA# [id number] Diagnostic interpretation performed at [facility], [address] [place] [address] CLIA# [id number] Bottle Assembler: Kemal Campos M.D. Performed By: #### C YTONON #### [facility] CLIA [id number] [address] [place] [address] [place] GROSS DESCRIPTION Normal [facility] Comment on above: Order Comment: Speci men Type: URINE SPECIMEN Ordering Facility: [facility] Address: [address] [place] [address] Result Comment: A. U rine, Cystoscopic 8 cc cloudy red fluid . ThinPrep prepared. Performed By: #### C YTONON #### [facility] CLIA [id number] [address] [place] [address] [place] Bilirubin Test strip Ql (U)O rdered By: Victor M Rojas on 06-17-2024 Bilirubin Ql (U) Negative Negative [facility] Glucose Ql (U)Ordered By: Stefan Rojas on 06-17-2024 Glucose (U) [Mass/Vol] 1000 mg/dL High Normal [facility] Ketones Test strip Ql (U)Ord ered By: Victor M Rojas on 06-17-2024 Ketones Ql (U) Negative Negative [facility] Nitrite Test strip Ql (U)Ord ered By: Victor M Rojas on 06-17-2024 Nitrite Ql (U) Negative Negative [facility] Protein Test strip Ql (U)Ord ered By: Victor M Rojas on 06-17-2024 Protein Ql (U) 500 mg/dl High Negative [facility] Urine blood detectionOrdered By: Victor M Rojas on 06-17-2024 Urine Occult Blood 250 /ul High Negative [facility] Urine clarityOrdered By: Prosper Rojas on 06-17-2024 Clarity (U) Cloudy Clear [facility] Urine color determinationOrd ered By: Victor M Rojas on 06-17-2024 Color (U) Red Yellow [facility] Urine cultureOrdered By: Prosper Rojas on 06-17-2024 Bacteria identified Cx Nom (U) Culture exhibits no growth. [facility] Urine leukocyte esterase det ection by dipstickOrdered By: Victor M Rojas on 06-17-2024 Leukocyte esterase Test strip Ql (U) 25 /ul High Negative [facility] Urine pHOrdered By: Tg Rojas on 06-17-2024 pH (U) 5.0 [pH] 5.0 - 8.0 [facility] Urine specific gravity measu rementOrdered By: Victor M Rojas on 06-17-2024 Specific gravity (U) [Rel density] 1.015 1.002-1.030 [facility] Urobilinogen Ql (U)Ordered B y: Victor M Rojas on 06-17-2024 Urine Urobilinogen Normal mg/dl Normal [facility] Gastroenterology Visit Repor ton 06-06-2024 Gastroenterology Visit Report [facility]astroenter[facility] [address] [place] [address] OFFICE VISIT Date of Service: 06/06/24 MR#: [id number] Acct: [id number] Name: LYELIZABETH G Rep #: [id number] : 1940 Provider: GILL Jefferson Age/Sex: 83/M [place] [facility] Status: Signed Intake Vital Signs 01/11/24 07:47 Height 5 ft 6 in Intake Visit Reasons: 3 M FU Chief Complaint: f/u. Allergies No Known Allergies Allergy (Verified 05/30/23 15:27) Medications ???Medication ???Instructions ???Recorded ???Confirmed ???Type levothyroxine 50 mcg tablet 50 mcg PO DAILY 09/01/21 06/06/24 History apixaban 2.5 mg tablet (Eliquis) 2.5 mg PO DAILY 03/03/22 06/06/24 History atorvastatin 40 mg tablet 40 mg PO DAILY 03/03/22 06/06/24 History carvedilol 3.125 mg tablet (Coreg) 3.125 mg PO BID 05/16/22 06/06/24 History acetaminophen 325 mg capsule 650 mg PO Q4H PRN pain 12/14/22 06/06/24 History empagliflozin 10 mg tablet 25 mg PO DAILY 12/14/22 06/06/24 History (Jardiance) multivitamin 1 tab PO DAILY 12/14/22 06/06/24 History polyethylene glycol 3350 17 17 g PO DAILY PRN constipation 12/14/22 06/06/24 History gram/dose oral powder (Miralax) glipizide 2.5 mg tablet, extended 5 mg PO DAILY 01/11/23 06/06/24 History release 24 hr sacubitril 24 mg-valsartan 26 mg 1 tab PO BID 01/11/23 06/06/24 History tablet (Entresto) insulin aspart U-100 100 unit/mL 1 sliding scale dose subcut 02/15/23 06/06/24 History (3 mL) subcutaneous pen (Novolog USEASDIRECTD FlexPen U-100 Insulin aspart) ondansetron HCl 4 mg tablet 4 mg PO Q4H PRN nausea and vomiting 05/30/23 06/06/24 History cholestyramine (with sugar) 4 gram 4 g PO QDAY #368.76 grams 03/04/24 06/06/24 Rx oral powder nystatin 100,000 unit/gram topical 1 applic topical QDAY 03/04/24 06/06/24 History cream potassium chloride 20 mEq 20 meq PO QDAY 03/04/24 06/06/24 History tablet,extended release(part/cryst) colestipol 1 gram tablet 2 g (2 x 1 gram) PO QDAY #60 tabs 06/06/24 06/06/24 Rx Have you fallen in the past year?: No Nurse's Note: OV 06.06.24 Pt here for f/u and reports diarrhea daily but has lessened since starting the cholestyramine. Denies bloody stools, N/V/C and abdominal pain. PENDING SALE TO [facility] Medical History (Updated 03/04/24 @ 10:[address] 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 Essential hypertension Tinea unguium Vitamin D deficiency Edentulous Tobacco dependence in remission Hypothyroidism Diabetes mellitus type 2, uncontrolled Surgical History (Updated 09/04/23 @ 11:13 by Earline Avila) History of heart surgery History of cardiac catheterization S/P bilateral below knee amputation S/P CABG x 1 History of cardioversion (05/20/20) 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 alcohol intake: current alcohol intake frequency: a few times a month details: Prior heavier, now occasional. substance use type: does not use HPI HPI Chief Complaint: f/u. Details: ELIZABETH MODI, is a 83 M who presents to the office today for f/u. *[facility] hospitalization 12.14.22-7.1.23 for management of choledocholithiasis (ATB Tx), calculous cholecystitis with obstruction and renal mass. ? US RUQ 12.14.22 left hepatic cyst 2.2x2.5x1.9cm; gallbladder pericholecystic fluid with multiple gallstones and Hunt???s sign + ? ERCP 12.15.22 entire MBD dilated with obstructing stone, biliary sphincterotomy/balloon extraction; lower MBD dilated; one temporary stent placed in CBD. ? Surgery 12.15.22 cholecystostomy tube placement. GI outpatient: ERCP 06.06.23 entire MBD dilated; choledocholithiasis removed via biliary sphincterotomy/balloon extraction; right MHD dila (more content not included)... Normal [facility] Gastroenterology Visit Repor ton 03-04-2024 Gastroenterology Visit Report [facility] Gastroenterology [address] [place] [address] OFFICE VISIT Date of Service: 03/04/24 MR#: [id number] Acct: [id number] Name: ELIZABETH MODI Rep #: [id number] : 1940 Provider: Sohail Owen DO Age/Sex: 83/M [place] [facility] [place]: Signed Intake Vital Signs 06/06/23 10:41 01/11/24 07:47 Height 5 ft 6 in 5 ft 6 in Intake Visit Reasons: 6 M FU Allergies No Known Allergies Allergy (Verified 05/30/23 15:27) Medications ???Medication ???Instructions ???Recorded ???Confirmed ???Type levothyroxine 50 mcg tablet 50 mcg PO DAILY 09/01/21 03/04/24 History apixaban 2.5 mg tablet (Eliquis) 2.5 mg PO DAILY 03/03/22 03/04/24 History atorvastatin 40 mg tablet 40 mg PO DAILY 03/03/22 03/04/24 History carvedilol 3.125 mg tablet (Coreg) 3.125 mg PO BID 05/16/22 03/04/24 History acetaminophen 325 mg capsule 650 mg PO Q4H PRN pain 12/14/22 03/04/24 History empagliflozin 10 mg tablet 25 mg PO DAILY 12/14/22 03/04/24 History (Jardiance) multivitamin 1 tab PO DAILY 12/14/22 03/04/24 History polyethylene glycol 3350 17 17 g PO DAILY PRN constipation 12/14/22 03/04/24 History gram/dose oral powder (Miralax) glipizide 2.5 mg tablet, extended 5 mg PO DAILY 01/11/23 03/04/24 History release 24 hr sacubitril 24 mg-valsartan 26 mg 1 tab PO BID 01/11/23 03/04/24 History tablet (Entresto) insulin aspart U-100 100 unit/mL 1 sliding scale dose subcut 02/15/23 05/30/23 History (3 mL) subcutaneous pen (Novolog USEASDIRECTD FlexPen U-100 Insulin aspart) ondansetron HCl 4 mg tablet 4 mg PO Q4H PRN nausea and vomiting 05/30/23 03/04/24 History cholestyramine (with sugar) 4 gram 4 g PO QDAY #368.76 grams 03/04/24 03/04/24 Rx oral powder nystatin 100,000 unit/gram topical 1 applic topical QDAY 03/04/24 03/04/24 History cream potassium chloride 20 mEq 20 meq PO QDAY 03/04/24 03/04/24 History tablet,extended release(part/cryst) Have you fallen in the past year?: No PFSH Medical History (Updated 03/04/24 @ 10:[address] 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 Essential hypertension Tinea unguium Vitamin D deficiency Edentulous Tobacco dependence in remission Hypothyroidism Diabetes mellitus type 2, uncontrolled Surgical History (Updated 09/04/23 @ 11:13 by Earline Avila) History of heart surgery History of cardiac catheterization S/P bilateral below knee amputation S/P CABG x 1 History of cardioversion (05/20/20) 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 alcohol intake: current alcohol intake frequency: a few times a month details: Prior heavier, now occasional. substance use type: does not use HPI HPI Details: ELIZABETH MODI, is a 83 M who presents to the office today for follow up. *[facility] hospitalization 12.14.22-12.17.22 for management of choledocholithiasis (ATB Tx), calculous cholecystitis with obstruction and renal mass. ? US RUQ 12.14.22 left hepatic cyst 2.2x2.5x1.9cm; gallbladder pericholecystic fluid with multiple gallstones and Hunt???s sign + ? ERCP 12.15.22 entire MBD dilated with obstructing stone, biliary sphincterotomy/balloon extraction; lower MBD dilated; one temporary stent placed in CBD. ? Surgery 12.15.22 cholecystostomy tube placement. GI outpatient: ERCP 06.06.23 entire MBD dilated; choledocholithiasis removed via biliary sphincterotomy/balloon extraction; right MHD dilated; stent removed from biliary tree. Negative for malignancy. Biochemical 08.14.23 LTCF AST 49-ALT 48-AP 123-t. bili 0.4 OV 3.18.24 reports he is doing well without abdominal pain or other concerns. OV 9.16.24 pt reports that he is feeling well overall, does endorse (more content not included)... Normal [facility] BCIDon 08-02-2023 Acinetobacter landon-baumanii complex Not detected Normal Not Detected [facility] ([place] Comment on above: Performed By: #### B MARANDA #### [place] [address] Bacteroides fragilis Not detected Normal Not Detected [facility] ([place] Comment on above: Performed By: #### B MARANDA #### [place] [address] BCID Comment See Comment Normal [facility] ([place] Comment on above: Result Comment: Anti microbial resistance can occur via multiple mechanisms. A "Not Detected" result for antimicrobial resistance gene(s) does not indicate antimicrobial susceptibility. Culture identification and susceptibility results to follow. If BCID panel was negative ("Not Detected") for all targets, this does not exclude a blood stream infection. Our blood culture system detected growth. Culture identification and susceptibility testing (if appropriate) to follow. Performed By: #### B MARANDA #### [place] [address] Megan albicans Not detected Normal Not Detected [facility] ([place] Comment on above: Performed By: #### B MARANDA #### [address] [address] Megan auris Not detected Normal Not Detected [facility] [place] Comment on above: Performed By: #### B MARANDA #### [place] [id number] Megan glabrata Not detected Normal Not Detected [facility] ([place] Comment on above: Performed By: #### B MARANDA #### [place] [address] Megan krusei Not detected Normal Not Detected [facility] ([place]) Comment on above: Performed By: #### B MARANDA #### [facility] [address] [place] [address] Megan parapsilosis Not detected Normal Not Detected [facility] ([place]) Comment on above: Performed By: #### B MARANDA #### [facility] [address] [place] [address] Megan tropicalis Not detected Normal Not Detected [facility] ([place] Comment on above: Performed By: #### B MARANDA #### [place] [address] Cryptococcus neoformans-gattii Not detected Normal Not Detected [facility] ([place] Comment on above: Performed By: #### B MARANDA #### [place] [address] CTX-M (ESBL) Not Applicable Normal Not Detected [facility] ([place] Comment on above: Performed By: #### B MARANDA #### [place] [address] E. Coli Not detected Normal Not Detected [facility] ([place] Comment on above: Performed By: #### B MARANDA #### [place] [address] Enterobacter cloacae Complex Not detected Normal Not Detected [facility] ([place] Comment on above: Performed By: #### B MARANDA #### [place] [address] Enterobacterales Not detected Normal Not Detected [facility] ([place] Comment on above: Performed By: #### B MARANDA #### [place] [address] Enterococcus faecalis Not detected Normal Not Detected [facility] ([place] Comment on above: Performed By: #### B MARANDA #### [place] [address] Enterococcus faecium Not detected Normal Not Detected [facility] ([place] Comment on above: Performed By: #### B MARANDA #### [place] [address] Haemophilus influenzae Not detected Normal Not Detected [facility] ([place] Comment on above: Performed By: #### B MARANDA #### [facility] [address] [place] [phone] IMP (Carbapenemase) Not Applicable Normal Not Detected [facility] ([place] Comment on above: Performed By: #### B MARANDA #### [facility] [address] [place] [address] Klebsiella aerogenes Not detected Normal Not Detected [facility] ([place] Comment on above: Performed By: #### B MARANDA #### [facility] [address] [place] [address] Klebsiella oxytoca Not detected Normal Not Detected [facility] ([place] Comment on above: Performed By: #### B MARANDA #### [address] [address] Klebsiella pneumoniae group Not detected Normal Not Detected [facility] ([place] Comment on above: Performed By: #### B MARANDA #### [place] [address] KPC (Carbapenemase) Not Applicable Normal Not Detected [facility] ([place]) Comment on above: Performed By: #### B MARANDA #### [place] [address] Listeria monocytogenes Not detected Normal Not Detected [facility] ([place] Comment on above: Performed By: #### B MARANDA #### [place] [id number] MCR-1 (Colistin Resistance) Not Applicable Normal Not Detected [facility] ([place] Comment on above: Performed By: #### B MARANDA #### [place] [id number] Mec A/C Detected Abnormal Not Detected [facility] ([place]) Comment on above: Performed By: #### B MARANDA #### [place] [id number] Mec A/C-MREJ (MRSA) Not Applicable Normal Not Detected [facility] ([place] Comment on above: Performed By: #### B MARANDA #### [place] [id number] NDM (Carbapenemase) Not Applicable Normal Not Detected [facility] ([place] Comment on above: Performed By: #### B MARANDA #### [facility] [address] [place] [phone] Neisseria meningitidis (Encapsalated) Not detected Normal Not Detected [facility] ([place] Comment on above: Performed By: #### B MARANDA #### [facility] [address] [place] [address] OXA-48 like (Carbapenemase) Not Applicable Normal Not Detected [facility] ([place]) Comment on above: Performed By: #### B MARANDA #### [facility] [address] [place] [address] Proteus Not detected Normal Not Detected [facility] ([place] Comment on above: Performed By: #### B MARANDA #### [address] [address] Pseudomonas aeruginosa Not detected Normal Not Detected [facility] ([place] Comment on above: Performed By: #### B MARANDA #### [place] [address] S. agalactiae Org specific cx Ql (Vag fld) Not detected Normal Not Detected [facility] ([place] Comment on above: Performed By: #### B MARANDA #### [address] [address] Salmonella species Not detected Normal Not Detected [facility] ([place] Comment on above: Performed By: #### B MARANDA #### [address] [address] Serratia marcescens Not detected Normal Not Detected [facility] ([place] Comment on above: Performed By: #### B MARANDA #### [facility] [address] [place] [phone] Staphylococcus Detected Abnormal Not Detected [facility] ([place] Comment on above: Performed By: #### B MARANDA #### [facility] [address] [place] [address] Staphylococcus aureus Not detected Normal Not Detected [facility] ([place] Comment on above: Result Comment: If S taphylococcus aureus is "Detected", an Infectious Disease physician consult is required on identification. Performed By: #### B MARANDA #### [place] [address] Staphylococcus epidermidis Detected Abnormal Not Detected [facility] ([place] Comment on above: Performed By: #### B MARANDA #### [place] [address] Staphylococcus lugdunensis Not detected Normal Not Detected [facility] [place] Comment on above: Performed By: #### B MARANDA #### [place] [address] Stenotrophomonas maltophilia Not detected Normal Not Detected [facility] [place] Comment on above: Performed By: #### B MARANDA #### [place] [address] Streptococcus Not detected Normal Not Detected [facility] [place] Comment on above: Performed By: #### B MARANDA #### [place] [address] Streptococcus pneumoniae Not detected Normal Not Detected [facility] [place] Comment on above: Performed By: #### B MARANDA #### [place] [address] Streptococcus pyogenes Not detected Normal Not Detected [facility] [place] Comment on above: Performed By: #### B MARANDA #### [place] [address] Van A/B Not Applicable Normal Not Detected [facility] [place] Comment on above: Performed By: #### B MARANDA #### [place] [address] VIM (Carbapenemase) Not Applicable Normal Not Detected [facility] ([place] Comment on above: Performed By: #### B MARANDA #### [place] [address] Absolute lymphocyte countOrd ered By: Dwayne Palumbo on 02-08-2023 Lymphocytes Auto (Unsp spec) [#/Vol] 1.91 10*3/uL 0.83-4.51 [facility] Basophil percentageOrdered B y: Dwayne Palumbo on 02-08-2023 Basophils/100 WBC (Bld) 0.2 % 0-1 [facility] Bilirubin [Mass/Vol] 0.90 mg/dL 0.20-1.00 [facility] Comment on above: For patients on eltr ombopag therapy, use of Dimension Ralls TBIL is not recommended. Chloride [Moles/Vol] 105 mmol/L 98-107 [facility] Eosinophils/100 WBC (Bld) 2.7 % 0-5 [facility] Glucose [Mass/Vol] 191 mg/dL 74-106 [facility] Comment on above: Fasting Glucose resu lt greater than or equal to 126 mg/dL suggests DIABETES MELLITUS per A.D.A. criteria. Neutrophils (Bld) [#/Vol] 7.0 10*3/uL 2.0-7.7 [facility] Neutrophils/100 WBC (Bld) 66.4 % 47-70 [facility] Potassium [Moles/Vol] 4.1 mmol/L 3.5-5.1 [facility] Protein [Mass/Vol] 8.0 g/dL 6.4-8.2 [facility] Sodium [Moles/Vol] 137 mmol/L 136-145 [facility] WBC (Bld) [#/Vol] 10.5 10*3/uL 4.4-11.0 [facility] Blood erythrocytes count (nu mber/volume)Ordered By: Dwayne Palumbo on 02-08-2023 RBC (Bld) [#/Vol] 4.64 10*6/uL 4.6-6.2 [facility] Blood hemoglobin measurement (mass/volume)Ordered By: Dwayne Palumbo on 02-08-2023 Hemoglobin (Bld) [Mass/Vol] 12.7 g/dL 13.0-16.5 [facility] Blood lymphocytes/100 leukoc ytesOrdered By: Dwayne Palumbo on 02-08-2023 Lymphocytes/100 WBC (Bld) 18.2 % 19-41 [facility] Blood monocytes/100 leukocyt esOrdered By: Dwayne Palumbo on 02-08-2023 Monocytes/100 WBC (Bld) 11.2 % 0-10 [facility] Blood platelet mean volumeOr dered By: Dwayne Palumbo on 02-08-2023 Platelet mean volume (Bld) [Entitic vol] 10.7 fL 6.2-12.0 [facility] Determination of erythrocyte mean corpuscular volume (MCV)Ordered By: Dwayne Palumbo on 02-08-2023 MCV (RBC) [Entitic vol] 86.6 fL 80-94 [facility] Hematocrit Auto (Bld) [Volum e fraction]Ordered By: Dwayne Palumbo on 02-08-2023 Hematocrit (Bld) [Volume fraction] 40.2 % 40-54 [facility] Laboratory - Chemistry and C hemistry - challengeOrdered By: Dwayne Palumbo on 02-08-2023 ALP [Catalytic activity/Vol] 122 U/L 45-117 [facility] ALT [Catalytic activity/Vol] 42 U/L 16-61 [facility] CO2 [Moles/Vol] 23.0 mmol/L 21.0-32.0 [facility] Globulin (S) [Mass/Vol] 4.6 g/dL 2.2-4.2 [facility] Urea nitrogen/Creatinine [Mass ratio] 25.7 mg/mg 10-20 [facility] Laboratory - Hematology and Cell countsOrdered By: Dwayne Palumbo on 02-08-2023 Erythrocyte distribution width (RBC) [Entitic vol] 50.7 fL 35.1-43.9 [facility] Erythrocyte distribution width (RBC) [Ratio] 16.1 % 11.6-14.6 [facility] Immature granulocytes/100 WBC (Bld) 1.300 % 0.0-0.9 [facility] Comment on above: IG% - Immature Granu locytes (promyelocytes, myelocytes and metamyelocytes) > 1% indicates that a LEFT SHIFT is Present. MCH (RBC) [Entitic mass] 27.4 pg 27.0-32.0 [facility] Nucleated RBC/100 WBC (Bld) [Ratio] 0 % 0-5 [facility] MCHC Auto (RBC) [Mass/Vol]Or dered By: Dwayne Palumbo on 02-08-2023 MCHC (RBC) [Mass/Vol] 31.6 g/dL 32-36 [facility] No Panel InformationOrdered By: Dwayne Palumbo on 02-08-2023 Estimated GFR (MDRD) Amer 46 mL/min >60 [facility] Comment on above: GFR Calc Estimated GFR (MDRD) Non-Af Amer 38 mL/min >60 [facility] Comment on above: Non- GFR Calc Platelets bldOrdered By: Edilson chu Deepali on 02-08-2023 Platelets (Bld) [#/Vol] 275 10*3/uL 150-450 [facility] Serum or plasma albumin akash urement (mass/volume)Ordered By: Dwayne Palumbo on 02-08-2023 Albumin [Mass/Vol] 3.4 g/dL 3.2-5.0 [facility] Serum or plasma albumin/glob ulin mass ratioOrdered By: Dwayne Palumbo on 02-08-2023 Albumin/Globulin [Mass ratio] 0.7 {ratio} 0.9-2.4 [facility] Serum or plasma calcium akash urement (mass/volume)Ordered By: Dwayne Palumbo on 02-08-2023 Calcium [Mass/Vol] 9.4 mg/dL 8.5-10.1 [facility] Serum or plasma creatinine m easurement (mass/volume)Ordered By: Dwayne Palumbo on 02-08-2023 Creatinine [Mass/Vol] 1.83 mg/dL 0.70-1.30 [facility] Comment on above: The validity of the calculated GFR & GFRAA in patients over 70 years has not been determined. Clinical correlation is essential. Serum or plasma urea nitroge n measurement (mass/volume)Ordered By: Dwayne Palumbo on 02-08-2023 Urea nitrogen [Mass/Vol] 47 mg/dL 7-18 [facility] Thin prep Papanicolaou smear with manual screeningOrdered By: Dwayne Palumbo on 02-08-2023 Thin prep Papanicolaou smear with manual screening 30 U/L 15-37 [facility] Thin prep Papanicolaou smear with manual screening 9 5-15 [facility] Absolute lymphocyte countOrd ered By: Jesse Haywood on 12-17-2022 Lymphocytes Auto (Unsp spec) [#/Vol] 0.86 10*3/uL 0.83-4.51 [facility] Basophil percentageOrdered B y: Jesse Haywood on 12-17-2022 Basophils/100 WBC (Bld) 0.1 % 0-1 [facility] Chloride [Moles/Vol] 113 mmol/L 98-107 [facility] Eosinophils/100 WBC (Bld) 0.2 % 0-5 [facility] Glucose [Mass/Vol] 178 mg/dL 74-106 [facility] Comment on above: Fasting Glucose resu lt greater than or equal to 126 mg/dL suggests DIABETES MELLITUS per A.D.A. criteria. Neutrophils (Bld) [#/Vol] 8.2 10*3/uL 2.0-7.7 [facility] Neutrophils/100 WBC (Bld) 80.2 % 47-70 [facility] Potassium [Moles/Vol] 3.8 mmol/L 3.5-5.1 [facility] Sodium [Moles/Vol] 141 mmol/L 136-145 [facility] WBC (Bld) [#/Vol] 10.2 10*3/uL 4.4-11.0 [facility] Blood erythrocytes count (nu mber/volume)Ordered By: Jesse Haywood on 12-17-2022 RBC (Bld) [#/Vol] 3.91 10*6/uL 4.6-6.2 [facility] Blood hemoglobin measurement (mass/volume)Ordered By: Jesse Haywood on 12-17-2022 Hemoglobin (Bld) [Mass/Vol] 11.1 g/dL 13.0-16.5 [facility] Blood lymphocytes/100 leukoc ytesOrdered By: Jesse Haywood on 12-17-2022 Lymphocytes/100 WBC (Bld) 8.4 % 19-41 [facility] Blood monocytes/100 leukocyt esOrdered By: Jesse Haywood on 12-17-2022 Monocytes/100 WBC (Bld) 9.2 % 0-10 [facility] Blood platelet mean volumeOr dered By: Jesse Haywood on 12-17-2022 Platelet mean volume (Bld) [Entitic vol] 11.4 fL 6.2-12.0 [facility] Determination of erythrocyte mean corpuscular volume (MCV)Ordered By: Jesse Haywood on 12-17-2022 MCV (RBC) [Entitic vol] 87.7 fL 80-94 [facility] Glucose Glucometer (BldC) [M ass/Vol]Ordered By: Jesse Haywood on 12-17-2022 Glucose [Mass/Vol] 216 mg/dL 74-106 [facility] Comment on above: MANAGEMENT OF PATIEN T CARE PER NURSING PROTOCOL Hematocrit Auto (Bld) [Volum e fraction]Ordered By: Jesse Haywood on 12-17-2022 Hematocrit (Bld) [Volume fraction] 34.3 % 40-54 [facility] Laboratory - Chemistry and C hemistry - challengeOrdered By: Jesse Haywood on 12-17-2022 CO2 [Moles/Vol] 21.0 mmol/L 21.0-32.0 [facility] Urea nitrogen/Creatinine [Mass ratio] 30.1 mg/mg 10-20 [facility] Laboratory - Hematology and Cell countsOrdered By: Jesse Haywood on 12-17-2022 Erythrocyte distribution width (RBC) [Entitic vol] 47.4 fL 35.1-43.9 [facility] Erythrocyte distribution width (RBC) [Ratio] 14.7 % 11.6-14.6 [facility] Immature granulocytes/100 WBC (Bld) 1.900 % 0.0-0.9 [facility] Comment on above: IG% - Immature Granu locytes (promyelocytes, myelocytes and metamyelocytes) > 1% indicates that a LEFT SHIFT is Present. MCH (RBC) [Entitic mass] 28.4 pg 27.0-32.0 [facility] Nucleated RBC/100 WBC (Bld) [Ratio] 0 % 0-5 [facility] MCHC Auto (RBC) [Mass/Vol]Or dered By: Jesse Haywood on 12-17-2022 MCHC (RBC) [Mass/Vol] 32.4 g/dL 32-36 [facility] No Panel InformationOrdered By: Jesse Haywood on 12-17-2022 Estimated Creatinine Clearance Calc 34.17 ml/min [facility] Estimated GFR (MDRD) Amer 56 mL/min >60 [facility] Comment on above: GFR Calc Estimated GFR (MDRD) Non-Af Amer 47 mL/min >60 [facility] Comment on above: Non- GFR Calc Platelets bldOrdered By: Stephanie Haywood on 12-17-2022 Platelets (Bld) [#/Vol] 248 10*3/uL 150-450 [facility] Serum or plasma calcium akash urement (mass/volume)Ordered By: Jesse Haywood on 12-17-2022 Calcium [Mass/Vol] 8.0 mg/dL 8.5-10.1 [facility] Serum or plasma creatinine m easurement (mass/volume)Ordered By: Jesse Haywood on 12-17-2022 Creatinine [Mass/Vol] 1.53 mg/dL 0.70-1.30 [facility] Comment on above: The validity of the calculated GFR & GFRAA in patients over 70 years has not been determined. Clinical correlation is essential. Serum or plasma urea nitroge n measurement (mass/volume)Ordered By: Jesse Haywood on 12-17-2022 Urea nitrogen [Mass/Vol] 46 mg/dL 7-18 [facility] Thin prep Papanicolaou smear with manual screeningOrdered By: Jesse Haywood on 12-17-2022 Thin prep Papanicolaou smear with manual screening 7 5-15 [facility] Bacteria identified Anaer cx Nom (Unsp spec)Ordered By: Dwayne Palumbo on 12-16-2022 Anaerobic Culture Bacteroides vulgatus [facility] Bacteria identified Cx Nom ( Wound)Ordered By: Dwayne Palumbo on 12-16-2022 Wound Culture Escherichia coli [facility] Basophil percentageOrdered B y: Jesse Haywood on 12-16-2022 Bilirubin [Mass/Vol] 2.00 mg/dL 0.20-1.00 [facility] Comment on above: For patients on eltr ombopag therapy, use of Dimension [place] TBIL is not recommended. Protein [Mass/Vol] 6.4 g/dL 6.4-8.2 [facility] Gram stain for investigation of transfusion reactionOrdered By: Dwayne Palumbo on 12-16-2022 Microscopic observation Gram stain Nom (Unsp spec) [facility] INR in Blood by Coagulation assayOrdered By: Emmanuel Kohler on 12-16-2022 INR Coag (Bld) [Relative time] 1.3 {INR} [facility] Laboratory - Chemistry and C hemistry - challengeOrdered By: Jesse Haywood on 12-16-2022 ALP [Catalytic activity/Vol] 278 U/L 45-117 [facility] ALT [Catalytic activity/Vol] 132 U/L 16-61 [facility] Globulin (S) [Mass/Vol] 4.2 g/dL 2.2-4.2 [facility] Laboratory - CoagulationOrde red By: Emmanuel Kohler on 12-16-2022 PT Coag (PPP) [Time] 16.5 s 11.7-14.9 [facility] Serum or plasma albumin akash urement (mass/volume)Ordered By: Jesse Haywood on 12-16-2022 Albumin [Mass/Vol] 2.2 g/dL 3.2-5.0 [facility] Serum or plasma albumin/glob ulin mass ratioOrdered By: Jesse Haywood on 12-16-2022 Albumin/Globulin [Mass ratio] 0.5 {ratio} 0.9-2.4 [facility] Thin prep Papanicolaou smear with manual screeningOrdered By: Jesse Haywood on 12-16-2022 Thin prep Papanicolaou smear with manual screening 74 U/L 15-37 [facility] Blood manual differential co mment interpretation (narrative result)Ordered By: Jesse Haywood on 12-15-2022 Manual differential comment Ghassan (Bld) [Interp] COMMENT [facility] Comment on above: MONOCYTOSIS. Laboratory - CoagulationOrde red By: Jesse Wang on 12-15-2022 aPTT Coag (Bld) [Time] 38.5 s 24.1-36.2 [facility] No Panel InformationOrdered By: Jesse Wang on 12-15-2022 Thyroid Stimulating Hormone (TSH) 1.50 uIU/mL 0.358-3.74 [facility] Review by pathologistOrdered By: Jesse Haywood on 12-15-2022 Pathologist review Ghassan (Unsp spec) [Interp] Reviewed [facility] Comment on above: Previous reported re sult: Stacy noonan Edited by: RGOOD on 12/15/22:1321Neutrophilic leukocytosis.Clinical correlation necessary.Raymond Knox M.D. 12/15/22 AMENDED REPORT 12/15/22 1321 PATH REV previously reported as: Stacy noonan Whole blood hemoglobin A1c/t otal hemoglobin ratio (mass fraction)Ordered By: Jesse Wang on 12-15-2022 HbA1c (Bld) [Mass fraction] 6.9 % 3.8-5.6 [facility] Comment on above: Normal < 5.7 % Predi abetic 5.7 - 6.4 % Diabetic >or= 6.5 % Please note range changes. BLOOD TB SCREENon 09-02-2022 M. tuberculosis tuberculin stim IFN-g Ql (Bld) Negative [facility] Mitogen minus Nil 5.42 IU/mL >=0.50 IU/mL [facility] TB Gamma Interpretation Infection with M . tuberculosis complex is unlikely. If latent tuberculosis infection is highly suspected, a negative result does not rule out the infection. Specimens from immunocompromised patients and those <5 years of age may show false negative results. In case of a contact investigation, please repeat 8-12 weeks after a known exposure. [facility] TB Nil 0.02 IU/mL <=8.00 IU/mL [facility] TB1 Ag minus Nil 0.00 IU/mL <0.35 IU/mL [facility] TB2 Ag minus Nil <0.35 IU/mL [facility] CBC W Auto Differential pane l (Bld)on 09-02-2022 Anisocytosis Ql (Bld) Present [facility] Basophils (Bld) [#/Vol] 0.00 10*3/uL <0.11 k/uL [facility] Basophils/100 WBC (Bld) 0.0 % [facility] Differential cell count method Nom (Bld) Manual [facility] Eosinophils (Bld) [#/Vol] 0.14 10*3/uL <0.46 k/ uL [facility] Eosinophils/100 WBC (Bld) 1.0 % [facility] Erythrocyte distribution width (RBC) [Ratio] 16.4 % High 11.5 - 15.0 % [facility] Hematocrit (Bld) [Volume fraction] 45.3 % 39.0 - 51.0 % [facility] Hemoglobin (Bld) [Mass/Vol] 14.4 g/dL 13.0 - 17.0 g/dL [facility] Lymphocytes (Bld) [#/Vol] 1.43 10*3/uL 1. 00 - 4.00 k/uL [facility] Lymphocytes/100 WBC (Bld) 10.0 % [facility] MCH (RBC) [Entitic mass] 29.9 pg 26. 0 - 34.0 pg [facility] MCHC (RBC) [Mass/Vol] 31.8 g/dL 30.5 - 36.0 g/dL [facility] MCV (RBC) [Entitic vol] 94.0 fL 80.0 - 100.0 fL [facility] Ruby % 1.0 % [facility] Monocytes (Bld) [#/Vol] 1.00 10*3/uL High <0.87 k/uL [facility] Monocytes/100 WBC (Bld) 7.0 % [facility] Neutrophils (Bld) [#/Vol] 11.57 10*3/uL High 1 .45 - 7.50 k/uL [facility] Neutrophils/100 WBC (Bld) 81.0 % [facility] Nucleated RBC (Bld) [#/Vol] <0.01 k/uL [facility] Nucleated RBC/100 WBC (Bld) [Ratio] 0.0 /100 WBC [facility] Ovalocytes LM Ql (Bld) Few Cl [facility] Platelet mean volume (Bld) [Entitic vol] 11.1 fL 9.0 - 12.7 fL [facility] Platelets (Bld) [#/Vol] 282 10*3/uL 150 - 400 k/uL [facility] Platelets Estimate (Bld) [#/Vol] Adequate [facility] Polychromasia LM Ql (Bld) Slight [facility] RBC (Bld) [#/Vol] 4.82 10*6/uL 4.20 - 6.0 0 m/uL [facility] Red Cell Morph Reviewed: see result s of individual morphologies [facility] WBC (Bld) [#/Vol] 14.29 10*3/uL High 3.70 - 11.00 k/uL [facility] WBC Left Shift Ql (Bld) Present [facility] C-REACTIVE PROTEIN (CRP)on 0 09-01-2022 CRP [Mass/Vol] <0.9 mg/dL [facility] Comprehensive metabolic 2000 panelon 09-01-2022 Albumin [Mass/Vol] 4.0 g/dL 3.9 - 4.9 g/dL [facility] ALP [Catalytic activity/Vol] 88 U/L 38 - 113 U/L [facility] ALT [Catalytic activity/Vol] 19 U/L 10 - 54 U/L [facility] Anion gap [Moles/Vol] 11 mmol/L 9 - 18 mmol/L [facility] AST [Catalytic activity/Vol] 19 U/L 14 - 40 U/L [facility] Bilirubin [Mass/Vol] 0.5 mg/dL 0.2 - 1 .3 mg/dL [facility] Calcium [Mass/Vol] 9.4 mg/dL 8.5 - 10. 2 mg/dL [facility] Chloride [Moles/Vol] 106 mmol/L High 97 - 10 5 mmol/L [facility] CO2 [Moles/Vol] 21 mmol/L Low 22 - 30 mmol/L [facility] Creatinine [Mass/Vol] 2.01 mg/dL High 0.73 - 1.22 mg/dL [facility] Estimated Glomerular Filtration Rate 33 mL/min/1.73m Low >=60 mL/min/1.73 m [facility] Glucose [Mass/Vol] 146 mg/dL High 74 - 99 mg/dL [facility] Potassium [Moles/Vol] 4.5 mmol/L 3.7 - 5.1 mmol/L [facility] Protein [Mass/Vol] 7.2 g/dL 6.3 - 8.0 g/dL [facility] Sodium [Moles/Vol] 138 mmol/L 136 - 144 mmol/L [facility] Urea nitrogen [Mass/Vol] 50 mg/dL High 9 - 24 mg/dL [facility] ESR Westergren method (Bld) [Velocity]on 09-01-2022 ESR (Bld) [Velocity] 31 mm/h High 0 - 15 mm/hr [facility] VITAMIN D 25 HYDROXYon 09-01 25-hydroxyvitamin D3 [Mass/Vol] 27.8 ng/mL Low 31.0 - 80.0 ng/mL [facility] LABORATORYOrdered By: Michelle Gardner on 01-13-2022 Blood Glucose Testing Reason Routine (01/13/22 11:36 AM) [facility] Work Phone: Glucose [Mass/Vol] 101 mg/dL Invalid Interpretation Code 82 - 115 mg/dL [facility] Work Phone: Blood Glucose Testing Reason Routine (01/13/22 7:06 AM) [facility] Work Phone: Glucose [Mass/Vol] 87 mg/dL Invalid Interpretation Code 82 - 115 mg/dL [facility] Work Phone: LABORATORYOrdered By: SYSTEM SYSTEM on 01-13-2022 Anisocytosis Ql (Bld) 1+ *NA* (01/13/22 4:48 AM) Invalid Interpretation Code Workflow SS Basophils (Bld) [#/Vol] 0.0 103/mcL Invalid Interpretation Code 0.0 - 0.3 10^3/mcL AH Workflow SS Basophils/100 WBC (Bld) 0.0 % Invalid Interpretation Code 0.0 - 2.5 % Workflow SS Calcium [Mass/Vol] 8.9 mg/dL Invalid Interpretation Code 8.7 - 10.4 mg/dL ADM SS Chloride [Moles/Vol] 104 mmol/L Invalid Interpretation Code 98 - 110 mEq/L ADM SS CO2 [Moles/Vol] 25 mmol/L Invalid Interpretation Code 22 - 32 mEq/L ADM SS Creatinine [Mass/Vol] 1.72 mg/dL Invalid Interpretation Code 0.60 - 1.40 mg/dL ADM SS Electrolyte Balance 9.0 mEq/L Invalid Interpretation Code 4.0 - 15.0 mEq/L ADM SS Eosinophils (Bld) [#/Vol] 0.1 103/mcL Invali d Interpretation Code 0.0 - 0.7 10^3/mcL Workflow SS Eosinophils/100 WBC (Bld) 1.0 % Invali d Interpretation Code 0.0 - 6.0 % AH Workflow SS Erythrocyte distribution width (RBC) [Ratio] 16.4 % Invalid Interpretation Code 11.5 - 15.5 % AH Workflow SS GFR/1.73 sq M.predicted among blacks MDRD (S/P/Bld) [Vol rate/Area] 47 ml/min/1.73sqm Invalid Interpretation Code AH ADM SS GFR/1.73 sq M.predicted among non-blacks MDRD (S/P/Bld) [Vol rate/Area] 38 ml/min/1.73sqm Invalid Interpretation Code ADM SS Glucose [Mass/Vol] 87 mg/dL Invalid Interpretation Code 82 - 115 mg/dL ADM SS Hematocrit (Bld) [Volume fraction] 31.5 % Invalid Interpretation Code 40.0 - 52.0 % AH Workflow SS Hemoglobin (Bld) [Mass/Vol] 10.2 G/dL Invalid Interpretation Code 13.0 - 17.5 G/dL AH Workflow SS Hypochromia Ql (Bld) 1+ *NA* (01/13/22 4:48 AM) Invalid Interpretation Code AH Workflow SS Lymphocytes (Bld) [#/Vol] 1.2 103/mcL Invali d Interpretation Code 0.9 - 4.3 10^3/mcL AH Workflow SS Lymphocytes/100 WBC (Bld) 9.0 % Invali d Interpretation Code 20.0 - 40.0 % AH Workflow SS Magnesium [Mass/Vol] 1.7 mg/dL Invalid Interpretation Code 1.6 - 2.4 mg/dL AH ADM SS MCH (RBC) [Entitic mass] 28.7 pg Invalid Interpretation Code 27.0 - 33.0 pg AH Workflow SS MCHC 32.4 G/dL Invalid Interpretation Code 32.0 - 36.0 G/dL Workflow SS MCV (RBC) [Entitic vol] 88.5 fL Invalid Interpretation Code 81.0 - 100.0 fL Workflow SS Monocyte distribution width Auto (Bld) [Entitic vol] Not Performed 1 *NA* (01/13/22 4:48 AM) Invalid Interpretation Code 0.00 - 20.00 Hematology S Comment on above: Result Comment: MDW testing performed only on adult ER patients between the ages of 18-89 years. Monocytes (Bld) [#/Vol] 0.4 103/mcL Invalid Interpretation Code 0.1 - 1.4 10^3/mcL Workflow SS Monocytes/100 WBC (Bld) 3.0 % Invalid Interpretation Code 2.0 - 13.0 % AH Workflow SS Myelocytes/100 WBC (Bld) 1.0 % Invalid Interpretation Code Workflow SS Neutrophils (Bld) [#/Vol] 11.4 103/mcL Invali d Interpretation Code 2.3 - 8.1 10^3/mcL AH Workflow SS Neutrophils/100 WBC (Bld) 86.0 % Invali d Interpretation Code 50.0 - 75.0 % Workflow SS Nucleated RBC 0.0 /100 WBC Invalid Interpretation Code Workflow SS Platelet mean volume (Bld) [Entitic vol] 7.7 fL Invalid Interpretation Code 6.4 - 10.5 fL AH Workflow SS Platelets (Bld) [#/Vol] 406 103/mcL Invalid Interpretation Code 150 - 450 10^3/mcL AH Workflow SS Platelets LM Ql (Bld) Normal *NA* (01/13/22 4:48 AM) Invalid Interpretation Code AH Workflow SS Polychromasia LM Ql (Bld) 1+ *NA* (01/13/22 4:48 AM) Invalid Interpretation Code AH Workflow SS Potassium [Moles/Vol] 4.6 mmol/L Invalid Interpretation Code 3.5 - 5.0 mEq/L AH ADM SS RBC (Bld) [#/Vol] 3.56 106/mcL Invalid Interpretation Code 4.50 - 6.00 10^6/mcL AH Workflow SS Sodium [Moles/Vol] 138 mmol/L Invalid Interpretation Code 136 - 145 mEq/L AH ADM SS Urea nitrogen [Mass/Vol] 42.0 mg/dL Invalid Interpretation Code 8.0 - 22.0 mg/dL ADM SS Urea nitrogen/Creatinine [Mass ratio] 24.4 ratio Invalid Interpretation Code 10.0 - 22.0 ratio AH ADM SS WBC 13.2 103/mcL Invalid Interpretation Code 4.5 - 10.8 10^3/mcL AH Workflow SS LABORATORYOrdered By: Kassidy Lopez on 01-13-2022 INR Coag (PPP) [Relative time] 1.1 {INR} Invalid Interpretation Code AH Auto Coag SS PT Coag (PPP) [Time] 13.2 s Invalid Interpretation Code 9.0 - 14.9 seconds AH Auto Coag SS LABORATORYOrdered By: Zoltan Pete on 01-12-2022 Blood Glucose Testing Reason Routine (01/12/22 8:59 PM) [facility] Work Phone: Glucose [Mass/Vol] 153 mg/dL Invalid Interpretation Code 82 - 115 mg/dL [facility] Work Phone: LABORATORYOrdered By: Adali Spencer on 01-12-2022 Date of Onset [id number] Invalid Interpretation Code AH Auto Viro/Sero SS Employed in Healthcare No (01/12/22 10:33 AM) Invalid Interpretation Code AH Auto Viro/Sero SS First Test No (01/12/22 10:33 AM) Invalid Interpretation Code AH Auto Viro/Sero SS FLU A PCR Negative 7 (01/12/22 10:33 AM) Invalid Interpretation Code Negative AH Auto Viro/Sero SS Comment on above: Result Comment: [place] [id number] FLU B PCR Negative 8 (01/12/22 10:33 AM) Invalid Interpretation Code Negative AH Auto Viro/Sero SS Comment on above: Result Comment: [place] s [id number] Hospitalized Yes (01/12/22 10:33 AM) Invalid Interpretation Code AH Auto Viro/Sero SS ICU No (01/12/22 10:33 AM) Invalid Interpretation Code AH Auto Viro/Sero SS Not (01/12/22 10:33 AM) Invalid Interpretation Code AH Auto Viro/Sero SS Resides in Congregate Care Setting No (01/12/22 10:33 AM) Invalid Interpretation Code AH Auto Viro/Sero SS RSV PCR Negative 9 (01/12/22 10:33 AM) Invalid Interpretation Code Negative AH Auto Viro/Sero SS Comment on above: Result Comment: [place] s [id number] SARS-CoV-2 (COVID-19) RNA ARIELLE+probe Ql (Unsp spec) Negative 6 (01/12/22 10:33 AM) Invalid Interpretation Code Negative AH Auto Viro/Sero SS Comment on above: Result Comment: [place] s [id number] Symptomatic as Defined by CDC No (01/12/22 10:33 AM) Invalid Interpretation Code AH Auto Viro/Sero SS LABORATORYOrdered By: SYSTEM SYSTEM on 01-12-2022 Anisocytosis Ql (Bld) 1+ *NA* (01/12/22 4:51 AM) Invalid Interpretation Code AH Workflow SS Basophils (Bld) [#/Vol] 0.0 103/mcL Invalid Interpretation Code 0.0 - 0.3 10^3/mcL AH Workflow SS Basophils/100 WBC (Bld) 0.0 % Invalid Interpretation Code 0.0 - 2.5 % AH Workflow SS Calcium [Mass/Vol] 8.8 mg/dL Invalid Interpretation Code 8.7 - 10.4 mg/dL AH ADM SS Chloride [Moles/Vol] 104 mmol/L Invalid Interpretation Code 98 - 110 mEq/L AH ADM SS CO2 [Moles/Vol] 26 mmol/L Invalid Interpretation Code 22 - 32 mEq/L AH ADM SS Creatinine [Mass/Vol] 1.37 mg/dL Invalid Interpretation Code 0.60 - 1.40 mg/dL AH ADM SS Electrolyte Balance 8.0 mEq/L Invalid Interpretation Code 4.0 - 15.0 mEq/L ADM SS Eosinophils (Bld) [#/Vol] 0.3 103/mcL Invali d Interpretation Code 0.0 - 0.7 10^3/mcL Workflow SS Eosinophils/100 WBC (Bld) 3.0 % Invali d Interpretation Code 0.0 - 6.0 % Workflow SS Erythrocyte distribution width (RBC) [Ratio] 16.2 % Invalid Interpretation Code 11.5 - 15.5 % Workflow SS GFR/1.73 sq M.predicted among blacks MDRD (S/P/Bld) [Vol rate/Area] ml/min/1.73sqm Invalid Interpretation Code ADM SS GFR/1.73 sq M.predicted among non-blacks MDRD (S/P/Bld) [Vol rate/Area] 50 ml/min/1.73sqm Invalid Interpretation Code ADM SS Glucose [Mass/Vol] 69 mg/dL Invalid Interpretation Code 82 - 115 mg/dL ADM SS Hematocrit (Bld) [Volume fraction] 31.7 % Invalid Interpretation Code 40.0 - 52.0 % Workflow SS Hemoglobin (Bld) [Mass/Vol] 10.4 G/dL Invalid Interpretation Code 13.0 - 17.5 G/dL Workflow SS Lymphocytes (Bld) [#/Vol] 1.4 103/mcL Invali d Interpretation Code 0.9 - 4.3 10^3/mcL Workflow SS Lymphocytes/100 WBC (Bld) 12.0 % Invali d Interpretation Code 20.0 - 40.0 % Workflow SS Magnesium [Mass/Vol] 1.8 mg/dL Invalid Interpretation Code 1.6 - 2.4 mg/dL ADM SS MCH (RBC) [Entitic mass] 28.7 pg Invalid Interpretation Code 27.0 - 33.0 pg Workflow SS MCHC 32.7 G/dL Invalid Interpretation Code 32.0 - 36.0 G/dL Workflow SS MCV (RBC) [Entitic vol] 87.8 fL Invalid Interpretation Code 81.0 - 100.0 fL Workflow SS Monocyte distribution width Auto (Bld) [Entitic vol] Not Performed 2 *NA* (01/12/22 4:51 AM) Invalid Interpretation Code 0.00 - 20.00 Hematology S Comment on above: Result Comment: MDW testing performed only on adult ER patients between the ages of 18-89 years. Monocytes (Bld) [#/Vol] 0.5 103/mcL Invalid Interpretation Code 0.1 - 1.4 10^3/mcL AH Workflow SS Monocytes/100 WBC (Bld) 4.0 % Invalid Interpretation Code 2.0 - 13.0 % AH Workflow SS Myelocytes/100 WBC (Bld) 3.0 % Invalid Interpretation Code Workflow SS Neutrophils (Bld) [#/Vol] 8.9 103/mcL Invali d Interpretation Code 2.3 - 8.1 10^3/mcL Workflow SS Neutrophils/100 WBC (Bld) 78.0 % Invali d Interpretation Code 50.0 - 75.0 % Workflow SS Nucleated RBC 0.0 /100 WBC Invalid Interpretation Code Workflow SS Platelet mean volume (Bld) [Entitic vol] 7.7 fL Invalid Interpretation Code 6.4 - 10.5 fL Workflow SS Platelets (Bld) [#/Vol] 386 103/mcL Invalid Interpretation Code 150 - 450 10^3/mcL Workflow SS Platelets LM Ql (Bld) Normal *NA* (01/12/22 4:51 AM) Invalid Interpretation Code Workflow SS Polychromasia LM Ql (Bld) 1+ *NA* (01/12/22 4:51 AM) Invalid Interpretation Code Workflow SS Potassium [Moles/Vol] 4.1 mmol/L Invalid Interpretation Code 3.5 - 5.0 mEq/L ADM SS RBC (Bld) [#/Vol] 3.61 106/mcL Invalid Interpretation Code 4.50 - 6.00 10^6/mcL Workflow SS Sodium [Moles/Vol] 138 mmol/L Invalid Interpretation Code 136 - 145 mEq/L ADM SS Urea nitrogen [Mass/Vol] 32.0 mg/dL Invalid Interpretation Code 8.0 - 22.0 mg/dL ADM SS Urea nitrogen/Creatinine [Mass ratio] 23.4 ratio Invalid Interpretation Code 10.0 - 22.0 ratio ADM SS WBC 11.4 103/mcL Invalid Interpretation Code 4.5 - 10.8 10^3/mcL Workflow SS LABORATORYOrdered By: Jocelyn Stone on 01-12-2022 INR Coag (PPP) [Relative time] 1.1 {INR} Invalid Interpretation Code AH Auto Coag SS PT Coag (PPP) [Time] 13.6 s Invalid Interpretation Code 9.0 - 14.9 seconds AH Auto Coag SS LABORATORYOrdered By: SYSTEM SYSTEM on 01-11-2022 Magnesium [Mass/Vol] 1.3 mg/dL Invalid Interpretation Code 1.6 - 2.4 mg/dL AH ADM SS Potassium [Moles/Vol] 4.4 mmol/L Invalid Interpretation Code 3.5 - 5.0 mEq/L ADM SS Anisocytosis Ql (Bld) 1+ *NA* (01/11/22 4:01 AM) Invalid Interpretation Code AH Workflow SS Band form neutrophils/100 WBC (Bld) 1.0 % Invalid Interpretation Code 0.0 - 5.0 % AH Workflow SS Basophils (Bld) [#/Vol] 0.0 103/mcL Invalid Interpretation Code 0.0 - 0.3 10^3/mcL AH Workflow SS Basophils/100 WBC (Bld) 0.0 % Invalid Interpretation Code 0.0 - 2.5 % AH Workflow SS Calcium [Mass/Vol] 8.7 mg/dL Invalid Interpretation Code 8.7 - 10.4 mg/dL ADM SS Chloride [Moles/Vol] 106 mmol/L Invalid Interpretation Code 98 - 110 mEq/L ADM SS CO2 [Moles/Vol] 28 mmol/L Invalid Interpretation Code 22 - 32 mEq/L ADM SS Creatinine [Mass/Vol] 1.38 mg/dL Invalid Interpretation Code 0.60 - 1.40 mg/dL ADM SS Electrolyte Balance 6.0 mEq/L Invalid Interpretation Code 4.0 - 15.0 mEq/L ADM SS Eosinophils (Bld) [#/Vol] 0.2 103/mcL Invali d Interpretation Code 0.0 - 0.7 10^3/mcL AH Workflow SS Eosinophils/100 WBC (Bld) 2.0 % Invali d Interpretation Code 0.0 - 6.0 % Workflow SS Erythrocyte distribution width (RBC) [Ratio] 15.7 % Invalid Interpretation Code 11.5 - 15.5 % AH Workflow SS GFR/1.73 sq M.predicted among blacks MDRD (S/P/Bld) [Vol rate/Area] 60 ml/min/1.73sqm Invalid Interpretation Code AH ADM SS GFR/1.73 sq M.predicted among non-blacks MDRD (S/P/Bld) [Vol rate/Area] 50 ml/min/1.73sqm Invalid Interpretation Code AH ADM SS Glucose [Mass/Vol] 79 mg/dL Invalid Interpretation Code 82 - 115 mg/dL ADM SS Hematocrit (Bld) [Volume fraction] 29.0 % Invalid Interpretation Code 40.0 - 52.0 % AH Workflow SS Hemoglobin (Bld) [Mass/Vol] 9.7 G/dL Invalid Interpretation Code 13.0 - 17.5 G/dL AH Workflow SS Lymphocytes (Bld) [#/Vol] 1.0 103/mcL Invali d Interpretation Code 0.9 - 4.3 10^3/mcL Workflow SS Lymphocytes/100 WBC (Bld) 9.0 % Invali d Interpretation Code 20.0 - 40.0 % Workflow SS MCH (RBC) [Entitic mass] 29.3 pg Invalid Interpretation Code 27.0 - 33.0 pg AH Workflow SS MCHC 33.4 G/dL Invalid Interpretation Code 32.0 - 36.0 G/dL Workflow SS MCV (RBC) [Entitic vol] 87.9 fL Invalid Interpretation Code 81.0 - 100.0 fL Workflow SS Monocyte distribution width Auto (Bld) [Entitic vol] Not Performed 3 *NA* (01/11/22 4:01 AM) Invalid Interpretation Code 0.00 - 20.00 Hematology S Comment on above: Result Comment: MDW testing performed only on adult ER patients between the ages of 18-89 years. Monocytes (Bld) [#/Vol] 0.7 103/mcL Invalid Interpretation Code 0.1 - 1.4 10^3/mcL Workflow SS Monocytes/100 WBC (Bld) 6.0 % Invalid Interpretation Code 2.0 - 13.0 % AH Workflow SS Myelocytes/100 WBC (Bld) 2.0 % Invalid Interpretation Code Workflow SS Neutrophils (Bld) [#/Vol] 8.8 103/mcL Invali d Interpretation Code 2.3 - 8.1 10^3/mcL Workflow SS Neutrophils/100 WBC (Bld) 80.0 % Invali d Interpretation Code 50.0 - 75.0 % AH Workflow SS Nucleated RBC 0.0 /100 WBC Invalid Interpretation Code Workflow SS Platelet mean volume (Bld) [Entitic vol] 7.9 fL Invalid Interpretation Code 6.4 - 10.5 fL AH Workflow SS Platelets (Bld) [#/Vol] 322 103/mcL Invalid Interpretation Code 150 - 450 10^3/mcL AH Workflow SS Platelets LM Ql (Bld) Normal *NA* (01/11/22 4:01 AM) Invalid Interpretation Code AH Workflow SS Polychromasia LM Ql (Bld) 1+ *NA* (01/11/22 4:01 AM) Invalid Interpretation Code AH Workflow SS RBC (Bld) [#/Vol] 3.30 106/mcL Invalid Interpretation Code 4.50 - 6.00 10^6/mcL AH Workflow SS Sodium [Moles/Vol] 140 mmol/L Invalid Interpretation Code 136 - 145 mEq/L AH ADM SS Urea nitrogen [Mass/Vol] 31.0 mg/dL Invalid Interpretation Code 8.0 - 22.0 mg/dL AH ADM SS Urea nitrogen/Creatinine [Mass ratio] 22.5 ratio Invalid Interpretation Code 10.0 - 22.0 ratio AH ADM SS WBC 11.0 103/mcL Invalid Interpretation Code 4.5 - 10.8 10^3/mcL AH Workflow SS LABORATORYOrdered By: Mariela Husain on 01-11-2022 INR Coag (PPP) [Relative time] 1.7 {INR} Invalid Interpretation Code AH Auto Coag SS PT Coag (PPP) [Time] 20.1 s Invalid Interpretation Code 9.0 - 14.9 seconds AH Auto Coag SS LABORATORYOrdered By: SYSTEM SYSTEM on 01-10-2022 Basophils (Bld) [#/Vol] 0.0 103/mcL Invalid Interpretation Code 0.0 - 0.3 10^3/mcL AH Workflow SS Basophils/100 WBC (Bld) 0.3 % Invalid Interpretation Code 0.0 - 2.5 % AH Workflow SS Eosinophils (Bld) [#/Vol] 0.2 103/mcL Invali d Interpretation Code 0.0 - 0.7 10^3/mcL AH Workflow SS Eosinophils/100 WBC (Bld) 1.8 % Invali d Interpretation Code 0.0 - 6.0 % AH Workflow SS Lymphocytes (Bld) [#/Vol] 1.3 103/mcL Invali d Interpretation Code 0.9 - 4.3 10^3/mcL AH Workflow SS Lymphocytes/100 WBC (Bld) 13.5 % Invali d Interpretation Code 20.0 - 40.0 % AH Workflow SS Monocytes (Bld) [#/Vol] 0.9 103/mcL Invalid Interpretation Code 0.1 - 1.4 10^3/mcL AH Workflow SS Monocytes/100 WBC (Bld) 9.6 % Invalid Interpretation Code 2.0 - 13.0 % Workflow SS Neutrophils (Bld) [#/Vol] 7.3 103/mcL Invali d Interpretation Code 2.3 - 8.1 10^3/mcL Workflow SS Neutrophils/100 WBC (Bld) 74.8 % Invali d Interpretation Code 50.0 - 75.0 % Workflow SS LABORATORYOrdered By: Pascale Murphy on 01-09-2022 FFP Product Ready FFP Ready for Pickup (01/09/22 9:07 PM) Invalid Interpretation Code BB Manual SS LABORATORYOrdered By: SYSTEM SYSTEM on 01-09-2022 Basophils (Bld) [#/Vol] 0.0 103/mcL Invalid Interpretation Code 0.0 - 0.3 10^3/mcL Workflow SS Basophils/100 WBC (Bld) 0.3 % Invalid Interpretation Code 0.0 - 2.5 % Workflow SS Eosinophils (Bld) [#/Vol] 0.1 103/mcL Invali d Interpretation Code 0.0 - 0.7 10^3/mcL Workflow SS Eosinophils/100 WBC (Bld) 1.2 % Invali d Interpretation Code 0.0 - 6.0 % Workflow SS Lymphocytes (Bld) [#/Vol] 1.5 103/mcL Invali d Interpretation Code 0.9 - 4.3 10^3/mcL Workflow SS Lymphocytes/100 WBC (Bld) 13.9 % Invali d Interpretation Code 20.0 - 40.0 % Workflow SS Monocytes (Bld) [#/Vol] 1.1 103/mcL Invalid Interpretation Code 0.1 - 1.4 10^3/mcL AH Workflow SS Monocytes/100 WBC (Bld) 9.7 % Invalid Interpretation Code 2.0 - 13.0 % Workflow SS Neutrophils (Bld) [#/Vol] 8.1 103/mcL Invali d Interpretation Code 2.3 - 8.1 10^3/mcL Workflow SS Neutrophils/100 WBC (Bld) 74.9 % Invali d Interpretation Code 50.0 - 75.0 % Workflow SS LABORATORYOrdered By: SYSTEM SYSTEM on 01-08-2022 Basophils (Bld) [#/Vol] 0.1 103/mcL Invalid Interpretation Code 0.0 - 0.3 10^3/mcL AH Workflow SS Basophils/100 WBC (Bld) 0.5 % Invalid Interpretation Code 0.0 - 2.5 % AH Workflow SS Eosinophils (Bld) [#/Vol] 0.0 103/mcL Invali d Interpretation Code 0.0 - 0.7 10^3/mcL AH Workflow SS Eosinophils/100 WBC (Bld) 0.1 % Invali d Interpretation Code 0.0 - 6.0 % AH Workflow SS Lymphocytes (Bld) [#/Vol] 0.8 103/mcL Invali d Interpretation Code 0.9 - 4.3 10^3/mcL AH Workflow SS Lymphocytes/100 WBC (Bld) 6.7 % Invali d Interpretation Code 20.0 - 40.0 % AH Workflow SS Monocytes (Bld) [#/Vol] 1.0 103/mcL Invalid Interpretation Code 0.1 - 1.4 10^3/mcL Workflow SS Monocytes/100 WBC (Bld) 8.2 % Invalid Interpretation Code 2.0 - 13.0 % AH Workflow SS Neutrophils (Bld) [#/Vol] 10.6 103/mcL Invali d Interpretation Code 2.3 - 8.1 10^3/mcL Workflow SS Neutrophils/100 WBC (Bld) 84.5 % Invali d Interpretation Code 50.0 - 75.0 % Workflow SS LABORATORYOrdered By: Brigida Knott on 01-06-2022 Blood Glucose Interventions Administered food/juice (01/06/22 8:38 AM) [facility] Work Phone: LABORATORYOrdered By: SYSTEM SYSTEM on 01-06-2022 Albumin BCP dye [Mass/Vol] 4.1 G/dL Invalid Interpretation Code 3.2 - 4.8 G/dL ADM SS Albumin/Globulin [Mass ratio] 2.3 {ratio} Invalid Interpretation Code 0.9 - 1.6 ratio AH ADM SS ALP [Catalytic activity/Vol] 52 U/L Invalid Interpretation Code 38 - 126 U/L AH ADM SS ALT No additional P-5'-P [Catalytic activity/Vol] 9 U/L Invalid Interpretation Code 12 - 55 U/L AH ADM SS AST [Catalytic activity/Vol] 22 U/L Invalid Interpretation Code 8 - 34 U/L ADM SS Bilirubin [Mass/Vol] 0.70 mg/dL Invalid Interpretation Code 0.20 - 1.20 mg/dL ADM SS Globulin 1.8 G/dL Invalid Interpretation Code 1.5 - 3.8 G/dL AH ADM SS Protein [Mass/Vol] 5.9 G/dL Invalid Interpretation Code 5.7 - 8.2 G/dL ADM SS LABORATORYOrdered By: Kassidy Lopez on 01-06-2022 aPTT Coag (PPP) [Time] 27.7 s Invalid Interpretation Code 25.0 - 35.0 seconds AH Auto Coag SS Fibrinogen Coag (PPP) [Mass/Vol] 530 mg/dL Invalid Interpretation Code 250 - 560 mg/dL AH Auto Coag SS Heparin dose (APTT) Heparin IV (01/06/22 4:00 AM) Invalid Interpretation Code AH Auto Coag SS LABORATORYOrdered By: Errol Urena on 01-05-2022 Barometric Pressure 701 mm[Hg] Invalid Interpretation Code AH Auto Chem SS Base excess Calc (Bld) [Moles/Vol] -1.9000 mmol/L Invalid Interpretation Code AH Auto Chem SS CO2 (Bld) [Partial pressure] 39.9 mm[Hg] Invalid Interpretation Code 32.0 - 46.0 mm Hg AH Auto Chem SS CO2 [Moles/Vol] 24.2 mmol/L Invalid Interpretation Code 22.0 - 30.0 mmol/L AH Auto Chem SS HCO3 (Bld) [Moles/Vol] 23.0 mmol/L Invalid Interpretation Code 21.0 - 29.0 mmol/L AH Auto Chem SS Oxygen (Bld) [Partial pressure] 135.5 mm[Hg] Invalid Interpretation Code 74.0 - 108.0 mm Hg AH Auto Chem SS pH (Bld) 7.379 [pH] Invalid Interpretation Code 7.380 - 7.460 AH Auto Chem SS Barometric Pressure 701 mm[Hg] Invalid Interpretation Code AH Auto Chem SS Base excess Calc (Bld) [Moles/Vol] -2.6000 mmol/L Invalid Interpretation Code AH Auto Chem SS CO2 (Bld) [Partial pressure] 35.4 mm[Hg] Invalid Interpretation Code 32.0 - 46.0 mm Hg AH Auto Chem SS CO2 [Moles/Vol] 22.8 mmol/L Invalid Interpretation Code 22.0 - 30.0 mmol/L AH Auto Chem SS HCO3 (Bld) [Moles/Vol] 21.7 mmol/L Invalid Interpretation Code 21.0 - 29.0 mmol/L AH Auto Chem SS Oxygen (Bld) [Partial pressure] 106.9 mm[Hg] Invalid Interpretation Code 74.0 - 108.0 mm Hg AH Auto Chem SS pH (Bld) 7.406 [pH] Invalid Interpretation Code 7.380 - 7.460 AH Auto Chem SS Barometric Pressure 702 mm[Hg] Invalid Interpretation Code AH Auto Chem SS Base excess Calc (Bld) [Moles/Vol] -6.5000 mmol/L Invalid Interpretation Code AH Auto Chem SS CO2 (Bld) [Partial pressure] 36.1 mm[Hg] Invalid Interpretation Code 32.0 - 46.0 mm Hg AH Auto Chem SS CO2 [Moles/Vol] 19.8 mmol/L Invalid Interpretation Code 22.0 - 30.0 mmol/L AH Auto Chem SS HCO3 (Bld) [Moles/Vol] 18.7 mmol/L Invalid Interpretation Code 21.0 - 29.0 mmol/L AH Auto Chem SS Oxygen (Bld) [Partial pressure] 113.9 mm[Hg] Invalid Interpretation Code 74.0 - 108.0 mm Hg AH Auto Chem SS pH (Bld) 7.333 [pH] Invalid Interpretation Code 7.380 - 7.460 AH Auto Chem SS Calcium.ionized (Bld) [Mass/Vol] 1.18 mmol/L Invalid Interpretation Code 1.12 - 1.32 mmol/L Auto Chem SS LABORATORYOrdered By: SYSTEM SYSTEM on 01-05-2022 Large Platelets Few *NA* (01/05/22 12:54 PM) Invalid Interpretation Code Workflow SS Phosphate [Mass/Vol] 3.0 mg/dL Invalid Interpretation Code 2.4 - 5.1 mg/dL ADM SS Vacuolated Neutrophils 1+ *NA* (01/05/22 12:54 PM) Invalid Interpretation Code Workflow SS Base excess Calc (Bld) [Moles/Vol] -6.6000 mmol/L Invalid Interpretation Code Rapid Comm SS Calcium.ionized (Bld) [Mass/Vol] 1.04 mmol/L Invalid Interpretation Code 1.12 - 1.32 mmol/L Rapid Comm SS Chloride [Moles/Vol] 104 mmol/L Invalid Interpretation Code 98 - 110 mEq/L Rapid Comm SS CO2 (Bld) [Partial pressure] 36.3 mm[Hg] Invalid Interpretation Code 32.0 - 46.0 mm Hg Rapid Comm SS CO2 [Moles/Vol] 19.8 mmol/L Invalid Interpretation Code 22.0 - 30.0 mmol/L Rapid Comm SS Glucose [Mass/Vol] 189 mg/dL Invalid Interpretation Code 82 - 115 mg/dL Rapid Comm SS HCO3 (Bld) [Moles/Vol] 18.7 mmol/L Invalid Interpretation Code 21.0 - 29.0 mmol/L Rapid Comm SS Hematocrit (Bld) [Volume fraction] 28.0 % Invalid Interpretation Code 42.0 - 52.0 % Rapid Comm SS Hemoglobin (Bld) [Mass/Vol] 9.4 G/dL Invalid Interpretation Code 13.0 - 17.5 G/dL Rapid Comm SS Oxygen (Bld) [Partial pressure] 147.9 mm[Hg] Invalid Interpretation Code 74.0 - 108.0 mm Hg Rapid Comm SS pH (Bld) 7.329 [pH] Invalid Interpretation Code 7.380 - 7.460 Rapid Comm SS Potassium [Moles/Vol] 4.0 mmol/L Invalid Interpretation Code 3.5 - 5.0 mEq/L Rapid Comm SS Sodium [Moles/Vol] 136 mmol/L Invalid Interpretation Code 136 - 145 mEq/L Rapid Comm SS Base excess Calc (Bld) [Moles/Vol] -4.0000 mmol/L Invalid Interpretation Code Rapid Comm SS Calcium.ionized (Bld) [Mass/Vol] 1.05 mmol/L Invalid Interpretation Code 1.12 - 1.32 mmol/L Rapid Comm SS Chloride [Moles/Vol] 103 mmol/L Invalid Interpretation Code 98 - 110 mEq/L Rapid Comm SS CO2 (Bld) [Partial pressure] 42.4 mm[Hg] Invalid Interpretation Code 32.0 - 46.0 mm Hg Rapid Comm SS CO2 [Moles/Vol] 23.0 mmol/L Invalid Interpretation Code 22.0 - 30.0 mmol/L Rapid Comm SS Glucose [Mass/Vol] 190 mg/dL Invalid Interpretation Code 82 - 115 mg/dL Rapid Comm SS HCO3 (Bld) [Moles/Vol] 21.7 mmol/L Invalid Interpretation Code 21.0 - 29.0 mmol/L Rapid Comm SS Hematocrit (Bld) [Volume fraction] 28.0 % Invalid Interpretation Code 42.0 - 52.0 % Rapid Comm SS Hemoglobin (Bld) [Mass/Vol] 9.4 G/dL Invalid Interpretation Code 13.0 - 17.5 G/dL Rapid Comm SS Oxygen (Bld) [Partial pressure] 455.6 mm[Hg] Invalid Interpretation Code 74.0 - 108.0 mm Hg Rapid Comm SS pH (Bld) 7.327 [pH] Invalid Interpretation Code 7.380 - 7.460 Rapid Comm SS Potassium [Moles/Vol] 4.3 mmol/L Invalid Interpretation Code 3.5 - 5.0 mEq/L Rapid Comm SS Sodium [Moles/Vol] 134 mmol/L Invalid Interpretation Code 136 - 145 mEq/L Rapid Comm SS Base excess Calc (Bld) [Moles/Vol] -3.7000 mmol/L Invalid Interpretation Code Rapid Comm SS Calcium.ionized (Bld) [Mass/Vol] 1.12 mmol/L Invalid Interpretation Code 1.12 - 1.32 mmol/L Rapid Comm SS Chloride [Moles/Vol] 105 mmol/L Invalid Interpretation Code 98 - 110 mEq/L Rapid Comm SS CO2 (Bld) [Partial pressure] 45.4 mm[Hg] Invalid Interpretation Code 32.0 - 46.0 mm Hg Rapid Comm SS CO2 [Moles/Vol] 23.9 mmol/L Invalid Interpretation Code 22.0 - 30.0 mmol/L Rapid Comm SS Glucose [Mass/Vol] 200 mg/dL Invalid Interpretation Code 82 - 115 mg/dL Rapid Comm SS HCO3 (Bld) [Moles/Vol] 22.6 mmol/L Invalid Interpretation Code 21.0 - 29.0 mmol/L Rapid Comm SS Hematocrit (Bld) [Volume fraction] 38.0 % Invalid Interpretation Code 42.0 - 52.0 % Rapid Comm SS Hemoglobin (Bld) [Mass/Vol] 12.8 G/dL Invalid Interpretation Code 13.0 - 17.5 G/dL Rapid Comm SS Oxygen (Bld) [Partial pressure] 269.7 mm[Hg] Invalid Interpretation Code 74.0 - 108.0 mm Hg Rapid Comm SS pH (Bld) 7.314 [pH] Invalid Interpretation Code 7.380 - 7.460 AH Rapid Comm SS Potassium [Moles/Vol] 3.8 mmol/L Invalid Interpretation Code 3.5 - 5.0 mEq/L AH Rapid Comm SS Sodium [Moles/Vol] 140 mmol/L Invalid Interpretation Code 136 - 145 mEq/L AH Rapid Comm SS Albumin BCP dye [Mass/Vol] 3.1 G/dL Invalid Interpretation Code 3.2 - 4.8 G/dL AH ADM SS Albumin/Globulin [Mass ratio] 0.9 {ratio} Invalid Interpretation Code 0.9 - 1.6 ratio AH ADM SS ALP [Catalytic activity/Vol] 86 U/L Invalid Interpretation Code 38 - 126 U/L AH ADM SS ALT No additional P-5'-P [Catalytic activity/Vol] 19 U/L Invalid Interpretation Code 12 - 55 U/L AH ADM SS AST [Catalytic activity/Vol] 18 U/L Invalid Interpretation Code 8 - 34 U/L AH ADM SS Bilirubin [Mass/Vol] 1.20 mg/dL Invalid Interpretation Code 0.20 - 1.20 mg/dL AH ADM SS Globulin 3.3 G/dL Invalid Interpretation Code 1.5 - 3.8 G/dL AH ADM SS Protein [Mass/Vol] 6.4 G/dL Invalid Interpretation Code 5.7 - 8.2 G/dL AH ADM SS RBC morphology finding Nom (Bld) See Below 4 *NA* (01/05/22 4:26 AM) Invalid Interpretation Code Workflow SS Comment on above: Result Comment: RBC Morphology appears Normal LABORATORYOrdered By: Ara Rinaldi on 01-05-2022 Platelet Product Ready Platelet Ready fo r Pickup (01/05/22 5:46 AM) Invalid Interpretation Code BB Manual SS LABORATORYOrdered By: Brendan Aguilera on 01-04-2022 ABO and Rh group Nom (Bld) Blood group A Rh(D) positive Invalid Interpretation Code BB Auto SS Blood group antibody screen Ql NEG (01/04/22 5:18 PM) Invalid Interpretation Code BB Auto SS LABORATORYOrdered By: Pascale Murphy on 01-04-2022 RBC Product Ready RBC Ready for Pickup (01/04/22 4:44 PM) Invalid Interpretation Code BB Manual SS LABORATORYOrdered By: [employer]ED [employer] SYSTEM on 01-04-2022 Albumin BCP dye [Mass/Vol] 3.3 G/dL Invalid Interpretation Code 3.2 - 4.8 G/dL ADM SS Albumin/Globulin [Mass ratio] 1.0 {ratio} Invalid Interpretation Code 0.9 - 1.6 ratio AH ADM SS ALP [Catalytic activity/Vol] 82 U/L Invalid Interpretation Code 38 - 126 U/L AH ADM SS ALT No additional P-5'-P [Catalytic activity/Vol] 15 U/L Invalid Interpretation Code 12 - 55 U/L AH ADM SS AST [Catalytic activity/Vol] 16 U/L Invalid Interpretation Code 8 - 34 U/L AH ADM SS Bilirubin [Mass/Vol] 1.00 mg/dL Invalid Interpretation Code 0.20 - 1.20 mg/dL ADM SS Globulin 3.3 G/dL Invalid Interpretation Code 1.5 - 3.8 G/dL AH ADM SS Platelet Clumps Few *NA* (01/04/22 4:24 AM) Invalid Interpretation Code Workflow SS Protein [Mass/Vol] 6.6 G/dL Invalid Interpretation Code 5.7 - 8.2 G/dL ADM SS RBC morphology finding Nom (Bld) See Below 5 *NA* (01/04/22 4:24 AM) Invalid Interpretation Code Workflow SS Comment on above: Result Comment: RBC Morphology appears Normal LABORATORYOrdered By: Juliana Diana on 01-04-2022 aPTT Coag (PPP) [Time] 51.5 s Invalid Interpretation Code 25.0 - 35.0 seconds AH Auto Coag SS Heparin dose (APTT) Heparin IV (01/04/22 4:24 AM) Invalid Interpretation Code AH Auto Coag SS LABORATORYOrdered By: Zee Méndez on 01-03-2022 Hemoglobin.gastrointestin al 8th specimen Ql (Stl) Negative (01/03/22 8:04 AM) Invalid Interpretation Code Negative Manual Urine SS LABORATORYOrdered By: Juliana Diana on 01-03-2022 aPTT Coag (PPP) [Time] 49.9 s Invalid Interpretation Code 25.0 - 35.0 seconds AH Auto Coag SS Heparin dose (APTT) Heparin IV (01/03/22 3:44 AM) Invalid Interpretation Code AH Auto Coag SS LABORATORYOrdered By: SYSTEM SYSTEM on 12-30-2021 Troponin I.cardiac DL <= 0.01 ng/mL [Mass/Vol] 3040.60 ng/L Invalid Interpretation Code 0.00 - 54.00 ng/L AH ADM SS Troponin I.cardiac DL <= 0.01 ng/mL [Mass/Vol] 3343.43 ng/L Invalid Interpretation Code 0.00 - 54.00 ng/L AH ADM SS Troponin I.cardiac DL <= 0.01 ng/mL [Mass/Vol] 3152.61 ng/L Invalid Interpretation Code 0.00 - 54.00 ng/L AH ADM SS HbA1c (Bld) [Mass fraction] 8.4 % Invalid Interpretation Code 4.0 - 6.0 % AH Auto Chem SS Phosphate [Mass/Vol] 4.2 mg/dL Invalid Interpretation Code 2.4 - 5.1 mg/dL AH ADM SS TSH Qn 3.091 mIU/mL Invalid Interpretation Code 0.550 - 4.780 mIU/mL AH ADM SS LABORATORYOrdered By: Zoltan Cunningham on 12-30-2021 Appearance (U) Clear (12/30/21 12:56 PM) Invalid Interpretation Code Clear AH Auto Urine SS Bilirubin Ql (U) Negative (12/30/21 12:56 PM) Invalid Interpretation Code Neg-Trace AH Auto Urine SS Color (U) Yellow (12/30/21 12:56 PM) Invalid Interpretation Code AH Auto Urine SS Glucose Test strip (U) [Mass/Vol] Negative Invalid Interpretation Code Negativemg/ dL AH Auto Urine SS Hemoglobin Auto test strip (U) [Mass/Vol] Negative (12/30/21 12:56 PM) Invalid Interpretation Code Neg-Trace AH Auto Urine SS Ketones Ql (U) Negative Invalid Interpretation Code Neg-Tracemg /dL AH Auto Urine SS UA Leuk Est Negative (12/30/21 12:56 PM) Invalid Interpretation Code Negative AH Auto Urine SS UA Nitrite Negative (12/30/21 12:56 PM) Invalid Interpretation Code Negative AH Auto Urine SS UA pH 5.5 (12/30/21 12:56 PM) Invalid Interpretation Code 5.0 - 8.0 AH Auto Urine SS UA Protein 100 mg/dL Invalid Interpretation Code Negativemg/ dL AH Auto Urine SS UA RBC Negative Invalid Interpretation Code 0-2/HPF AH Auto Urine SS UA Spec Grav 1.020 (12/30/21 12:56 PM) Invalid Interpretation Code 1.006-1.029 AH Auto Urine SS UA Specimen Type Void (12/30/21 12:56 PM) Invalid Interpretation Code AH Auto Urine SS UA Squam Epithelial Rare /HPF Invalid Interpretation Code 0-20/HPF AH Auto Urine SS UA Urobilinogen 0.2 E.U./dL Invalid Interpretation Code 0.2-1.0E.U. /dL AH Auto Urine SS WBC LM.HPF (Urine sed) [#/Area] 0-2 /HPF Invalid Interpretation Code 0-5/HPF AH Auto Urine SS LABORATORYOrdered By: Zoltan Mascorro on 12-30-2021 Blood Glucose Interventions Retest (12/30/21 8:53 AM) [facility] Work Phone: LABORATORYOrdered By: Rohan Rivero on 12-30-2021 Cholesterol [Mass/Vol] 129 mg/dL Invalid Interpretation Code 50 - 199 mg/dL AH ADM SS Cholesterol in HDL [Mass/Vol] 24 mg/dL Invalid Interpretation Code 40 - 59 mg/dL AH ADM SS Cholesterol in LDL [Mass/Vol] 75 mg/dL Invalid Interpretation Code 0 - 129 mg/dL AH ADM SS Triglyceride [Mass/Vol] 152 mg/dL Invalid Interpretation Code 3 - 149 mg/dL AH ADM SS LABORATORYOrdered By: Lety teresa on 12-30-2021 Natriuretic peptide.B prohormone N-Terminal [Mass/Vol] 3741 pg/mL Invalid Interpretation Code 0 - 1800 pg/mL AH Auto Chem SS No Panel InformationOrdered By: Zoltan Mascorro on 12-30-2021 Blood Glucose Interventions Administered food/juice, Administered agent to increase blood sugar (12/30/21 8:32 AM) [facility] Work Phone: Hemoglobin A1con 08-04-2021 Glucose [Mass/Vol] 258 mg/dL Normal [facility] Comment on above: Performed By: #### H BA1C #### [facility] Routine Lab [address], [place] [address] HbA1c (Bld) [Mass fraction] 10.6 % High 4.3-5.6 [facility] Comment on above: Performed By: #### H BA1C #### [facility] Routine Lab [address] [place], [place] [address] Glucose,Bedsideon 02-09-2021 Glucose [Mass/Vol] 185 mg/dL High 70-100 [facility] Comment on above: Result Comment: Test performed by glucose meter. Results may be 10%-15% lower than serum/plasma values. (CLIA ID [id number]) Performed By: #### B GLU #### [facility] [address] [place] [address] Glucose [Mass/Vol] 284 mg/dL High 70-100 [facility] Comment on above: Result Comment: Test performed by glucose meter. Results may be 10%-15% lower than serum/plasma values. (CLIA ID [id number]) Performed By: #### B GLU #### [facility] [address] [place] [address] OPERATIVE REPORTOrdered By: 3m Scanning on 02-09-2021 [facility] Work Phone: Op Noteon 02-09-2021 Op Note [facility] l Dictation: Topical Anesthesia Note Patient Name: Elizabeth Modi : 1940 Date of Procedure: 02/09/2021 Surgeon: Ammy Vicente M.D. 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 Indications/Findings: Elizabeth Modi is a 80 y.o. year old male with a history of decreased visual acuity due to cataract. Preop BCVA is 20/100. The patient complained of gradual decreased vision in the right eye. Slit lamp exam revealed a mature cataract of the right eye. Ophthalmoscopy showed no macular disease. The risks and benefits were discussed with the patient and the patient was found to be in stable condition by their PCP to undergo cataract surgery. Treatment and exams are expected in the post-operative period. Estimated blood loss: none Complications: none Specimen: none Operation: The correct eye was identified and marked by me in the preop area. The patient was taken back to the operating room and prepped and draped in the usual sterile fashion for a right eye procedure. Topical tetracaine was applied to the right eye and a lid speculum was placed in the operative eye. The operating microscope was brought into proper position. A paracentesis was placed with a 15 degree blade at the 7 o'clock position and preservative free lidocaine on a 3cc syringe was instilled on a cannula into the anterior chamber. The anterior chamber was then filled with viscoelastic. A clear corneal incision was then placed from the 9 to 10 o'clock position. A malygin ring 7.0mm placed. A continuous capsulorrhexis was then created using a cystotome and utrata forceps.[place]-dissecti on and hydro-delineation were then performed. Phacoemulsification was then undertaken successfully with removal of the entire lens. Any remaining cortex was then aspirated from the eye. The capsular bag was filled with viscoelastic and an AMALIA ZCB00 +20.5 diopter lens was successfully introduced to the posterior chamber capsule. The malygin ring was removed with a yanique hook. Any remaining viscoelastic was removed utilizing irrigation and aspiration. BSS on a cannula was used to hydrate the wounds, which was found to be self-sealing. The lid speculum was removed and the anterior chamber remained formed. Maxitrol ointment and Ciprofloxacin drops were instilled into the operative eye and a clear eye shield was placed over the eye for protection. The patient was taken back to the post-operative area in good condition. The post-operative instructions were reviewed with the patient and an instruction sheet was sent home. The patient is to follow up the next day as directed. The patient should call before then if they have any increase in pain or any other concerns. Operative Note Normal [facility] POCT GlucoseOrdered By: Gayatri Vicente on 02-09-2021 Glucose [Mass/Vol] 185 mg/dL High 70 - 100 mg/dL [facility] Work Phone: Comment on above: Test performed by ucose meter. Results may be 10%-15% lower than serum/plasma values. (CLIA ID [id number]) Interpretation and review of laboratory results Abnormal [facility] Work Phone: Test Performed by [facility], [address] [place] [address] [facility] Work Phone: [facility] Work Phone: Glucose [Mass/Vol] 284 mg/dL High 70 - 100 mg/dL [facility] Work Phone: Comment on above: Test performed by [employer] ucose meter. Results may be 10%-15% lower than serum/plasma values. (CLIA ID [id number]) Interpretation and review of laboratory results Abnormal [facility] Work Phone: Test Performed by [facility], [address] [place] [id number] [place], [place] [address] Work Phone: [facility] Work Phone: Hemoglobin A1con 12-03-2020 Glucose [Mass/Vol] 194 mg/dL [facility] Comment on above: Performed By: #### H BA1C #### [facility] Routine Lab [address] [place], [place] [id number] HbA1c (Bld) [Mass fraction] 8.4 % High 4.3-5.6 [facility] Reference Lab Comment on above: Performed By: #### H BA1C #### [facility] Routine Lab [address] [place], [place] [id number] ECHOCARDIOGRAM LIMITED/FOLLO Eren 11-13-2020 ECHOCARDIOGRAM LIMITED/FOLLOWUP ? Limited echocardiogram for LV functional reassessment. Diagnostic quality study with LV endocardial visualization improved by ultrasound enhancing agent. ? Left ventricular systolic function appears within normal limits on views with UEA. LVEF 58%. ? Diastolic function is abnormal and consistent with impaired relaxation (grade I). Probably normal left atrial pressure. ? Right ventricular function is normal. ? Left atrium is severely dilated. ? Aortic valve sclerosis without hemodynamically significant stenosis. ? In comparison to the images obtained on 06/08/2020, LV function has improved. 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 Finn in October Interpretation Summary ? Limited echocardiogram for LV functional reassessment. Diagnostic quality study with LV endocardial visualization improved by ultrasound enhancing agent. ? Left ventricular systolic function appears within normal limits on views with UEA. LVEF 58%. ? Diastolic function is abnormal and consistent with impaired relaxation (grade I). Probably normal left atrial pressure. ? Right ventricular function is normal. ? Left atrium is severely dilated. ? Aortic valve sclerosis without hemodynamically significant stenosis. ? In comparison to the images obtained on 06/08/2020, LV function has improved. Findings Left Ventricle The ejection fraction is 58%. Diastolic function is abnormal and consistent with impaired relaxation (grade I). Probably normal left atrial pressure. Right Ventricle Chamber size is mildly enlarged. Systolic function is normal. Fractional area change equals 41.3%. Left Atrium Chamber size is severely enlarged. Right Atrium Chamber size is normal. Septum The atrial septum is normal. Mitral Valve Leaflet mobility is normal. No valve stenosis. Aortic Valve Moderate leaflet calcification. Leaflet excursion is mildly decreased. No stenosis. Mean gradient: 3 mmHg. Tricuspid Valve Trace regurgitation. Pulmonary artery/right heart systolic pressure is elevated. Pulmonic Valve Mild regurgitation. Aorta No dilation to extent seen. SOV: 3.62 cm. Ascendin.40 cm. Pericardium No pericardial effusion. IVC/SVC The inferior vena cava structure has a diameter <21 mm and decreases >50% during inspiration. Flow patterns are normal. Pulmonary Artery Pulmonary artery not well visualized. Reading Providers Reading Role Read Date Dwayne Carrasco MD Echo [place] 11/13/2020 Left Heart Measurements LV - Systole LVIDD 5.03 cm IVS 0.93 cm LVIDS 3.15 cm PW 0.98 cm LV RWT 0.39 LV Mass Index 110.8 g/m2 LV EDV BP 123 mL LV ESV BP 52 mL BP EF 58 % LV stroke volume BP (ml) 71 mL LV stroke volume index BP 45.51 mL/m2 LV - Diastole MV pk E kamar 0.72 m/s MV pk A kamar 1.11 m/s E/A ratio 0.65 e' septal pk kamar 0.04 m/s e' lateral pk kamar 0.06 m/s Avg e' pk kamar 0.05 m/s E/e' septal ratio 16.14 E/e' lateral ratio 12.04 Avg E/e' ratio 14.09 LV - HCM AV LVOT peak gradient 2 mmHg Left Atrium LA ESV SP 4CH (MOD) 83 mL LA ESV SP 2CH (MOD) 113 mL LA ESV BP (MOD) index 65 mL/m2 Right Heart Measurements RV - 2D RV basal diam 4.76 cm RV mid diam 3.95 cm RV long diam 7.1 cm RV Area diastolic 26.64 cm2 RV Area systolic 15.65 cm2 RV Fractional area change 41.3 % RV - Doppler TAPSE 1.87 Right Atrium RA vol index 4CH (MOD) 18.59 mL/m2 Great Vessels Aortic Root - End Diastolic Sinus 3.62 cm STJ 3.34 cm Ascending aorta 3.4 cm Inferior Vena Cava IVC ostium 1.48 cm Doppler Measurements - Aortic Valve Stenosis LVOT diameter 2.1 cm LVOT area 3.46 cm2 LVOT peak kamar 0.65 m/s Ao peak kamar 1.11 m/s Ao VTI 24.8 cm AV peak gradient 5 mmHG AV mean gradient 3 mmHg DI (Vmax) 0.59 KEN (continuity Vmax) 2.03 cm2 KEN index (continuity Vmax) 1.3 m/s Doppler Measurements - Mitral Valve Stenosis MV pk E kamar 0.72 m/s MV pk A kamar 1.11 m/s E/A ratio 0.65 MV stenosis pressure 1/2 time 84 ms MV valve area p 1/2 method 2.62 cm2 PISA-MS MV pk E kamar 0.72 m/s Doppler Measurements - Tricuspid Valve Stenosis IVC ostium 1.48 cm Regurgitation TR pk kamar 3.05 m/s TR pk grad 37 mmHg Doppler Measurements - Pulmonic Valve Stenosis PV PK KAMAR 0.71 m/s PV peak gradient 2 mmHg RVOT peak kamar 0.54 m/s RVOT peak gradient 1 mmHg Performing Staff Benjamín Negrete RDCS Study Details Study(s) performed: complete. Contrast was administered. Study limitations include patient body habitus and patient's inability to turn. Imaging system used: SendRR. Exam Details Performed Procedure (more content not included)... Normal [facility] Hemoglobin A1con 09-10-2020 Glucose [Mass/Vol] 177 mg/dL Normal [facility] Reference Lab Comment on above: Performed By: #### H BA1C #### [facility] Routine Lab [address] [place], [place] [address] HbA1c (Bld) [Mass fraction] 7.8 % High 4.3-5.6 [facility] Reference Lab Comment on above: Performed By: #### H BA1C #### [facility] Routine Lab [address] [place], [place] [address] Beau 05-20-2020 CNPN Telephone ([employer] ELIZABETH MODI ([id number]) 1940 M Date Time Provider Department 05/20/20 RYAN ALLEN During your visit today, we recorded the following information about you: Zoltan Ewing 05/20/2020 2:47 PM Signed Pt's daughter wanted to know if they needed to talk with Dr. Allen still. Allergies As of Date: 05/20/2020 (No Known Allergies) Date Reviewed: 05/18/2020 Reviewed by: Ryan Allen - Fully Assessed Reason for Visit: Appointment [186] Cmt: appointment Prescriptions as of 05/20/2020 Sig: CITALOPRAM 10 MG TABLET Take 10 mg by mouth once karli* SANTYL 250 UNIT/GRAM TOPICAL * apply SULLY THICK LAYER TO U* TOUJEO MAX U-300 SOLOSTAR 300* Inject 30 Units subcutaneousl* ASPIRIN 81 MG TABLET,DELAYED * Aspirin Aspirin E.C. Active 8* GABAPENTIN 600 MG TABLET Take 600 mg by mouth twice da* INSULIN LISPRO (U-100) 100 UN* Inject 15 Units subcutaneousl* POTASSIUM CHLORIDE ER 20 MEQ * Take 20 mEq by mouth twice da* METOPROLOL SUCCINATE ER 25 MG* Take 25 mg by mouth once karli* CHOLECALCIFEROL (VITAMIN D3) * Take 1,000 Units by mouth onc* ATORVASTATIN 40 MG TABLET Take 40 mg by mouth once karli* LEVOTHYROXINE 25 MCG TABLET Take 25 mcg by mouth once jyoti* LISINOPRIL 10 MG TABLET Take 10 mg by mouth once karli* METFORMIN 1,000 MG TABLET Take 1,000 mg by mouth twice * Problem List As Of Date 05/20/2020 Noted Resolved Gangrene of foot (HCC) [I96] 08/21/2019 Diabetes (HCC) [E11.9] 08/21/2019 HTN (hypertension) [I10] 08/21/2019 Dyslipidemia [E78.5] 08/21/2019 Hypothyroidism [E03.9] 08/21/2019 Malnutrition of moderate degree (HCC) [E44.0] 08/22/2019 PVD (peripheral vascular disease) (HCC) [I73.9] 12/07/2019 Below knee amputation (HCC) [S88.119A] 12/07/2019 Nonhealing surgical wound [T81.89XA] 12/09/2019 Encounter Status:Closed by ZOLTAN EWING on 05/20/20 [facility] JONAS Telephone ([employer]) ELIZABETH MODI ([id number]) 1940 M Date Time Provider Department 05/20/20 RYAN ALLEN During your visit today, we recorded the following information about you: Bren Santos 05/20/2020 2:52 PM Signed I have received a call from the daughter Angelic and she stated her father is in the hospital [place] where he has had great toe removed and IANDD was preformed. Overnight Elizabeth has had a mild heart attack and remains in the hospital under the care for Dr. Dwayne Meyer, patient is receiving IV antibiotics at this time. Dr. Meyer has stated the patient should not proceed with any other surgeries at this time due to the heart attack. Surgery was cancelled at this time. Maria Esther Gusman APRN.GURWINDER BECERRA 05/20/2020 3:45 PM Signed Noted. Thank you, Maria Esther Gusman APRN.NAIL ARTIST Allergies As of Date: 05/20/2020 (No Known Allergies) Date Reviewed: 05/18/2020 Reviewed by: Ryan Allen - Fully Assessed Reason for Visit: Patient Update [1234] Prescriptions as of 05/20/2020 Sig: CITALOPRAM 10 MG TABLET Take 10 mg by mouth once karli* SANTYL 250 UNIT/GRAM TOPICAL * apply SULLY THICK LAYER TO U* TOUJEO MAX U-300 SOLOSTAR 300* Inject 30 Units subcutaneousl* ASPIRIN 81 MG TABLET,DELAYED * Aspirin Aspirin E.C. Active 8* GABAPENTIN 600 MG TABLET Take 600 mg by mouth twice da* INSULIN LISPRO (U-100) 100 UN* Inject 15 Units subcutaneousl* POTASSIUM CHLORIDE ER 20 MEQ * Take 20 mEq by mouth twice da* METOPROLOL SUCCINATE ER 25 MG* Take 25 mg by mouth once karli* CHOLECALCIFEROL (VITAMIN D3) * Take 1,000 Units by mouth onc* ATORVASTATIN 40 MG TABLET Take 40 mg by mouth once karli* LEVOTHYROXINE 25 MCG TABLET Take 25 mcg by mouth once jyoti* LISINOPRIL 10 MG TABLET Take 10 mg by mouth once karli* METFORMIN 1,000 MG TABLET Take 1,000 mg by mouth twice * Problem List As Of Date 05/20/2020 Noted Resolved Gangrene of foot (HCC) [I96] 08/21/2019 Diabetes (HCC) [E11.9] 08/21/2019 HTN (hypertension) [I10] 08/21/2019 Dyslipidemia [E78.5] 08/21/2019 Hypothyroidism [E03.9] 08/21/2019 Malnutrition of moderate degree (HCC) [E44.0] 08/22/2019 PVD (peripheral vascular disease) (HCC) [I73.9] 12/07/2019 Below knee amputation (HCC) [S88.119A] 12/07/2019 Nonhealing surgical wound [T81.89XA] 12/09/2019 Encounter Status:Closed by BREN SANTOS on 05/21/20 Normal [facility] PROGRESSon 05-18-2020 PROGRESS HNO ID: [id number] Author: Ryan Allen Service: ? Author Type: Physician Type: Progress Notes Filed: 05/18/2020 1:42 PM Note Text: VIRTUAL VISIT PROGRESS NOTE This is a virtual visit using HIPAA compliant video platform. It required patient-provider interaction for the medical decision making as documented below. Elizabeth Modi is a 79 year old male seen for worsening appearance of the left foot and left great toe. Video from the patient's daughters cell phone was evaluated with it looks as though the whole left foot is now pretty erythematous and the left great toe nearly entirely black. She reports that he has had a low-grade fever also with no other respiratory type symptoms. I saw him April 28 where his foot was evaluated and we discussed the scenario with his daughter who was on the phone at that time. We had thought that we would try for angiography from the right groin which looks like the common femoral might be accessible and just try and open up the superficial femoral artery as best we could to improve inflow to the left leg. CT imaging was not good enough to really say whether there is a target for distal bypass. At that junction we are going to try and schedule him for angiography both for diagnostics of the distal circulation to see if there was a distal target vessel and also possible intervention to at least part of the SFA on the left. This was slowed down to the recent worsening of the Covid pandemic with current hospital numbers more than twice what we saw in the spring today. HISTORY REVIEWED (electronic chart updated): PAST MEDICAL HISTORY Diagnosis Date - Anxiety and depression - DM (diabetes mellitus) (HCC) - Dyslipidemia - HTN (hypertension) - Hypothyroidism - PVD (peripheral vascular disease) (HCC) - Renal mass PAST SURGICAL HISTORY Procedure Laterality Date - ELBOW SURGERY HX Right 60'S - PAST SURGICAL HISTORY OF Right 09/05/2019 Revision Rt BKA - PAST SURGICAL HISTORY OF 1963 TEETH PULLED - TONSILLECTOMY HX A CHILD - VASCULAR SURGERY PROCEDURE Right 12/09/2019 Irrigation and debridement of right lower extremity wound with placement of wound VAC. FAMILY HISTORY Problem Relation Age of Onset - Diabetes Father - Heart Attack Father - Diabetes Brother Social History Tobacco Use - Smoking status: Former Smoker Packs/day: 1.00 Years: 30.00 Pack years: 30.00 Types: Cigarettes Quit date: 01/07/1990 Years since quittin.3 - Smokeless tobacco: Never Used - Tobacco comment: STOPPED 28 YEARS AGO Substance Use Topics - Alcohol use: Yes Frequency: Monthly or less Drinks per session: 1 or 2 Comment: OCCASIONAL - Drug use: Never Current Outpatient Medications Medication Sig - citalopram hydrobromide (CELEXA) 10 mg tablet Take 10 mg by mouth once daily. - SANTYL ointment apply SULLY THICK LAYER TO ULCER DAILY - TOUJEO MAX U-300 SOLOSTAR 300 unit/mL (3 mL) inpn Inject 30 Units subcutaneously daily at bedtime. - aspirin, enteric coated (ASPIRIN, ENTERIC COATED) 81 mg EC tablet Aspirin Aspirin E.C. Active 81 MG DAILY@0800 October 12, 2019 7:37am 10-12-2019 [facility] ([id number]) - gabapentin (NEURONTIN) 600 mg tablet Take 600 mg by mouth twice daily. - insulin lispro (HUMALOG KWIKPEN INSULIN) 100 unit/mL Inject 15 Units subcutaneously three times daily before meals. - potassium chloride ER (K-DUR, KLOR-CON) 20 mEq tablet Take 20 mEq by mouth twice daily. - metoprolol succinate ER (TOPROL XL) 25 mg 24 hr tablet Take 25 mg by mouth once daily. - Cholecalciferol, Vitamin D3, (VITAMIN D) 25 mcg (1,000 unit) cap Take 1,000 Units by mouth once daily. - atorvastatin (LIPITOR) 40 mg tablet Take 40 mg by mouth once daily. - levothyroxine (SYNTHROID) 25 mcg tablet Take 25 mcg by mouth once daily. - lisinopril (ZESTRIL, PRINIVIL) 10 mg tablet Take 10 mg by mouth once daily. - metFORMIN (GLUCOPHAGE) 1,000 mg tablet Take 1,000 mg by mouth twice daily. No current facility-administered medications for this visit. 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 He seems quite oriented on the video evaluation today although does report that his foot does hurt. There is no drainage from the foot that his daughter describes but imaging shows pretty much the entire left great toe is now gangrenous} PHYSICAL EXAMINATION: VIDEO EXAM: (if completed, performed via video enabled technology) EXTREMITIES: Erythema was visualized Throughout the left foot to just above the ankle. Does not appear that there is much in terms of drainage although the daughter is not comfortable with ongoing therapy. ASSESSMENT: (T14.8XXA) Nonhealing nonsurgical wound (primary encounter diagnosis) (I73.9) PVD (peripheral vascular disease) ([facility]) (E11.69) Type 2 diabetes mellitus with other specified complication, without long-term current use of insulin ([facility]) (S91.302A) Open wound of left foot with complication, initial encounter PLAN: He probably needs at least an attempt at antibiotic therapy and hopefully arrange for possible angiography to see if we can improve some flow down into the left foot. Probably actually have to look at the foot and see if it is really going to be salvageable at this point. Given the state of the [facility] emergency room at this junction it may be better to have him seen locally at [facility] and see if some antibiotic therapy at least overnight might be worth a try. Possible transfer from there would depend on his stability and the bed availability here at [facility] There are no Patient Instructions on file for this visit. Ryan Allen MD Normal [facility] Bas Metab 2000 Pnl SerPlon 1 07-15-2019 Anion gap [Moles/Vol] 13 mmol/L Normal 9-18 [facility] Comment on above: Order Comment: Speci men Type: BLOOD SPECIMEN Performed By: #### 2 4321-2 #### [facility] CLIA [id number] [address] [place] [address] Calcium [Mass/Vol] 9.8 mg/dL Normal 8.5-10.2 [facility] Comment on above: Order Comment: Speci men Type: BLOOD SPECIMEN Performed By: #### 2 4321-2 #### [facility] CLIA [id number] [address] [place] [address] Chloride [Moles/Vol] 102 mmol/L Normal 97-105 [facility] Comment on above: Order Comment: Speci men Type: BLOOD SPECIMEN Performed By: #### 2 4321-2 #### [facility] CLIA [id number] [address] [place] [address] CO2 [Moles/Vol] 24 mmol/L Normal 22-30 [facility] Comment on above: Order Comment: Speci men Type: BLOOD SPECIMEN Performed By: #### 2 4321-2 #### [facility] CLIA [id number] [address] [place] [address] Creatinine [Mass/Vol] 0.95 mg/dL Normal 0.73-1.22 [facility] Comment on above: Order Comment: Speci men Type: BLOOD SPECIMEN Performed By: #### 2 4321-2 #### [facility] CLIA [id number] [address] [place] [address] GFR/1.73 sq M.predicted MDRD (S/P/Bld) [Vol rate/Area] mL/min/{1.73_m2} Normal [facility] Comment on above: Order Comment: Speci men Type: BLOOD SPECIMEN Result Comment: >60 eGFR (Estimated GFR) Units of measure: mL/min/1.73 meters squared eGFR is derived from the reexpressed MDRD Study equation using the following parameters: serum creatinine, age, gender and race. The creatinine assay has been calibrated to be traceable to IDMS. An eGFR <60 mL/min/1.73m2 for >3 months is consistent with chronic kidney disease. Refer to KDOQI guidelines for clinical interpretation. In patients with unstable renal function, e.g. those with acute kidney injury, the eGFR may not accurately reflect actual GFR. Performed By: #### 2 4321-2 #### [facility] CLIA [id number] [address] [place] [address] Glucose [Mass/Vol] 214 mg/dL High 74-99 [facility] Comment on above: Order Comment: Speci men Type: BLOOD SPECIMEN Result Comment: The [place] Diabetes Association (ADA) provides guidance for cutoff values for fasting glucose and random glucose. The ADA defines fasting as no caloric intake for at least 8 hours. Fasting plasma glucose results between 100 to 125 mg/dL indicate increased risk for diabetes (prediabetes). Fasting plasma glucose results greater than or equal to 126 mg/dL meet the criteria for diagnosis of diabetes. In the absence of unequivocal hyperglycemia, results should be confirmed by repeat testing. In a patient with classic symptoms of hyperglycemia or hyperglycemic crisis, random plasma glucose results greater than or equal to 200 mg/dL meet the criteria for diagnosis of diabetes. Reference: Standards of Medical Care in Diabetes 2016, [place] Diabetes Association. Diabetes Care. 2016.39(Suppl 1). Performed By: #### 2 4321-2 #### [facility] CLIA [id number] [address] [place] [address] Potassium [Moles/Vol] 4.9 mmol/L Normal 3.7-5.1 [facility] Comment on above: Order Comment: Speci men Type: BLOOD SPECIMEN Performed By: #### 2 4321-2 #### [facility] CLIA [id number] [address] [place] [address] Sodium [Moles/Vol] 139 mmol/L Normal 136-144 [facility] Comment on above: Order Comment: Speci men Type: BLOOD SPECIMEN Performed By: #### 2 4321-2 #### [facility] CLIA [id number] [address] [place] [address] Urea nitrogen [Mass/Vol] 31 mg/dL High 9- [facility] Comment on above: Order Comment: Speci men Type: BLOOD SPECIMEN Performed By: #### 2 4321-2 #### [facility] CLIA [id number] [address] [place] [address] CBC (hemogram) Bld [employer] Erythrocyte distribution width (RBC) [Ratio] 12.8 % Normal 11.5-15.0 [facility] Comment on above: Order Comment: Speci men Type: BLOOD SPECIMEN Performed By: #### 5 8410-2 #### [facility] CLIA [id number] [address] [place] [address] Hematocrit (Bld) [Volume fraction] 43.5 % Normal 39.0-51.0 [facility] Comment on above: Order Comment: Speci men Type: BLOOD SPECIMEN Performed By: #### 5 8410-2 #### [facility] CLIA [id number] [address] [place] [address] Hemoglobin (Bld) [Mass/Vol] 14.1 g/dL Normal 13.0-17.0 [facility] Comment on above: Order Comment: Speci men Type: BLOOD SPECIMEN Performed By: #### 5 8410-2 #### [facility] CLIA [id number] [address] [place] [address] MCH (RBC) [Entitic mass] 29.5 pg Normal 26.0-34.0 [facility] Comment on above: Order Comment: Speci men Type: BLOOD SPECIMEN Performed By: #### 5 8410-2 #### [facility] CLIA [id number] [address] [place] [address] MCHC (RBC) [Mass/Vol] 32.4 g/dL Normal 30.5-36.0 [facility] Comment on above: Order Comment: Speci men Type: BLOOD SPECIMEN Performed By: #### 5 8410-2 #### [facility] CLIA [id number] [address] [place] [address] MCV (RBC) [Entitic vol] 91.0 fL Normal 80.0-100.0 [facility] Comment on above: Order Comment: Speci men Type: BLOOD SPECIMEN Performed By: #### 5 8410-2 #### [facility] CLIA [id number] [address] [place] [address] Nucleated RBC (Bld) [#/Vol] 10*3/uL Normal <0.01 [facility] Comment on above: Order Comment: Speci men Type: BLOOD SPECIMEN Performed By: #### 5 8410-2 #### [facility] CLIA [id number] [address] [place] [address] Platelet mean volume (Bld) [Entitic vol] 10.4 fL Normal 9.0-12.7 [facility] Comment on above: Order Comment: Speci men Type: BLOOD SPECIMEN Performed By: #### 5 8410-2 #### [facility] CLIA [id number] [address] [place] [address] Platelets (Bld) [#/Vol] 367 10*3/uL Normal 150-400 [facility] Comment on above: Order Comment: Speci men Type: BLOOD SPECIMEN Performed By: #### 5 8410-2 #### [facility] CLIA [id number] [address] [place] [address] RBC (Bld) [#/Vol] 4.78 10*6/uL Normal 4.20-6.00 [facility] Comment on above: Order Comment: Speci men Type: BLOOD SPECIMEN Performed By: #### 5 8410-2 #### [facility] CLIA [id number] [address] [place] [address] WBC (Bld) [#/Vol] 11.87 10*3/uL High 3.70-11.00 [facility] Comment on above: Order Comment: Speci men Type: BLOOD SPECIMEN Performed By: #### 5 8410-2 #### [facility] CLIA [id number] [address] [place] [address] Beau 05-15-2020 JONAS Telephone ([employer] ELIZABETH MODI ([id number]) 1940 M Date Time Provider Department 05/15/20 RYAN ALLEN During your visit today, we recorded the following information about you: Kassidy Avila LPN 05/15/2020 10:17 AM Signed Angelic called stating her Dads big toe on left foot is more bluish in color AND she wanted to know if his procedure 05/25/20 could be done sooner. I explained to her that Dr. Allen was out of town until Monday AND that if he is in a lot of pain or numbness she should take him to ER. She said she would talk to Elizabeth but didn't feel it was bad enough to go to ER. Kassidy Avila LPN Allergies As of Date: 05/15/2020 (No Known Allergies) Date Reviewed: 05/15/2020 Reviewed by: Sunshine ([facility]) Kimberly - Fully Assessed Reason for Visit: Patient Update [1234] Prescriptions as of 05/15/2020 Sig: CITALOPRAM 10 MG TABLET Take 10 mg by mouth once karli* SANTYL 250 UNIT/GRAM TOPICAL * apply SULLY THICK LAYER TO U* TOUJEO MAX U-300 SOLOSTAR 300* Inject 30 Units subcutaneousl* ASPIRIN 81 MG TABLET,DELAYED * Aspirin Aspirin E.C. Active 8* GABAPENTIN 600 MG TABLET Take 600 mg by mouth twice da* INSULIN LISPRO (U-100) 100 UN* Inject 15 Units subcutaneousl* POTASSIUM CHLORIDE ER 20 MEQ * Take 20 mEq by mouth twice da* METOPROLOL SUCCINATE ER 25 MG* Take 25 mg by mouth once karli* CHOLECALCIFEROL (VITAMIN D3) * Take 1,000 Units by mouth onc* ATORVASTATIN 40 MG TABLET Take 40 mg by mouth once karli* LEVOTHYROXINE 25 MCG TABLET Take 25 mcg by mouth once jyoti* LISINOPRIL 10 MG TABLET Take 10 mg by mouth once karli* METFORMIN 1,000 MG TABLET Take 1,000 mg by mouth twice * Problem List As Of Date 05/15/2020 Noted Resolved Gangrene of foot (HCC) [I96] 08/21/2019 Diabetes (HCC) [E11.9] 08/21/2019 HTN (hypertension) [I10] 08/21/2019 Dyslipidemia [E78.5] 08/21/2019 Hypothyroidism [E03.9] 08/21/2019 Malnutrition of moderate degree (HCC) [E44.0] 08/22/2019 PVD (peripheral vascular disease) (HCC) [I73.9] 12/07/2019 Below knee amputation (HCC) [S88.119A] 12/07/2019 Nonhealing surgical wound [T81.89XA] 12/09/2019 Encounter Status:Closed by MARIA ESTHER GUSMAN CNP on 05/19/20 Normal [facility] HGB A1Con 05-15-2020 Average glucose Estimated from glycated hemoglobin mass conc (Bld) 189 mg/dL Normal [facility] Comment on above: Order Comment: Speci men Type: BLOOD SPECIMEN Result Comment: eAG: (Estimated average glucose) is a calculated value from HgbA1c and is technical sales representatives of the average blood glucose level in the last 2-3 month period. Performed By: #### H BA1C ####[facility] [id number] [place] [address] HbA1c (Bld) [Mass fraction] 8.2 % High 4.3-5.6 [facility] Comment on above: Order Comment: Speci men Type: BLOOD SPECIMEN Result Comment: [place] Diabetes Association guidelines indicate that patients with HgbA1c in the range 5.7-6.4% are at increased risk for development of diabetes, and intervention by lifestyle modification may be beneficial. HgbA1c greater or equal to 6.5% is considered diagnostic of diabetes. Performed By: #### H BA1C ####[facility] [id number] [place] [address] HISTORY PHYSICALon 0 HISTORY PHYSICAL HNO ID: [id number] Author: Sunshine Harris Service: ? Author Type: Nurse Practitioner Type: HANDP Filed: 05/15/2020 11:26 AM Note Text: HISTORY AND PHYSICAL EXAMINATION SERVICE DATE: 05/15/2020 SERVICE TIME: 1120 PRIMARY CARE PHYSICIAN: Dexter Reyes MD REASON FOR VISIT: Elizabeth Modi is a 79 year old male who is scheduled forLeft leg Aortogram with runoffs, possible intervention, possible left arm approach surgery at the request of Dr. Ryan Allen for Pre procedure History and physical ANESTHESIA: MAC The patient has the following: ACTIVE PROBLEM LIST Gangrene of Foot (Hcc) Diabetes (Hcc) Htn (Hypertension) Dyslipidemia Hypothyroidism Malnutrition of Moderate Degree (Hcc) Pvd (Peripheral Vascular Disease) ([facility]) Below Knee Amputation ([facility]) Nonhealing Surgical Wound Subjective CHIEF COMPLAINT: PVD HPI: This is a 79 year old male that presents today for presurgical testing with c/o above. Patient has a h/o of PVD, former smoker. He has had a right BKA in 09/05/2019 that has had to have I/D and a wound vac placed in November of this year was taken off about two months ago. Patient states that he has been having weakness and pain in his left leg. States he is unable to bear weight on his left leg at all. Pain today is rated as a 5/10 and attempting to stand makes the pain worse. Rest helps with his symptoms. Denies any recent fevers or chills. Patient has met with surgeon and has agreed to surgical intervention. PAST MEDICAL HISTORY Diagnosis Date - Anxiety and depression - DM (diabetes mellitus) (HCC) - Dyslipidemia - HTN (hypertension) - Hypothyroidism - PVD (peripheral vascular disease) ([facility]) PAST SURGICAL HISTORY Procedure Laterality Date - [facility]BOW SURGERY HX Right 60'S - PAST SURGICAL HISTORY OF Right 09/05/2019 Revision Rt BKA - PAST SURGICAL HISTORY OF 1963 TEETH PULLED - TONSILLECTOMY HX A CHILD - VASCULAR SURGERY PROCEDURE Right 12/09/2019 Irrigation and debridement of right lower extremity wound with placement of wound VAC. FAMILY HISTORY Problem Relation Age of Onset - Diabetes Father - Heart Attack Father - Diabetes Brother SOCIAL HISTORY: Social History Tobacco Use - Smoking status: Former Smoker Packs/day: 1.00 Years: 30.00 Pack years: 30.00 Types: Cigarettes Quit date: 01/07/1990 Years since quittin.3 - Smokeless tobacco: Never Used - Tobacco comment: STOPPED 28 YEARS AGO Substance Use Topics - Alcohol use: Yes Frequency: Monthly or less Drinks per session: 1 or 2 Comment: OCCASIONAL - Drug use: Never Prior to Admission medications as of 05/15/20 1058 Medication Sig Last Dose Taking citalopram hydrobromide (CELEXA) 10 mg tablet Take 10 mg by mouth once daily. Taking Yes SANTYL ointment apply SULLY THICK LAYER TO ULCER DAILY Taking Yes TOUJEO MAX U-300 SOLOSTAR 300 unit/mL (3 mL) inpn Inject 30 Units subcutaneously daily at bedtime. Taking Yes aspirin, enteric coated (ASPIRIN, ENTERIC COATED) 81 mg EC tablet Aspirin Aspirin E.C. Active 81 MG DAILY@0800 October 12, 2019 7:37am 10-12-2019 [facility] ([id number]) Taking Yes gabapentin (NEURONTIN) 600 mg tablet Take 600 mg by mouth twice daily. Taking Yes insulin lispro (HUMALOG KWIKPEN INSULIN) 100 unit/mL Inject 15 Units subcutaneously three times daily before meals. Taking Yes potassium chloride ER (K-DUR, KLOR-CON) 20 mEq tablet Take 20 mEq by mouth twice daily. Taking Yes metoprolol succinate ER (TOPROL XL) 25 mg 24 hr tablet Take 25 mg by mouth once daily. Taking Yes Cholecalciferol, Vitamin D3, (VITAMIN D) 25 mcg (1,000 unit) cap Take 1,000 Units by mouth once daily. Taking Yes atorvastatin (LIPITOR) 40 mg tablet Take 40 mg by mouth once daily. Taking Yes levothyroxine (SYNTHROID) 25 mcg tablet Take 25 mcg by mouth once daily. Taking Yes lisinopril (ZESTRIL, PRINIVIL) 10 mg tablet Take 10 mg by mouth once daily. Taking Yes metFORMIN (GLUCOPHAGE) 1,000 mg tablet Take 1,000 mg by mouth twice daily. Taking Yes No medication comments found. ALLERGIES No Known Allergies REVIEW OF SYSTEMS: PAIN ASSESSMENT: General: Denies fever, chills, and unexpected weight change. +Anxiety, depression Neuro: Denies dizziness and headaches. Denies h/o TIA or CVA, or seizures. Respiratory: Denies SOB and cough. Denies PNA in the past 6 weeks. Denies DE, COPD, Asthma. +Former Smoker Cardiovascular: Denies CP and palpitations. No h/o of CHF, [place], Cardiac Sx, cardiac stents, PPM/AICD. +HTN, HLD, PVD GI: Denies abd pain and N/V/D. Denies esophogeal varices. Denies diarrhea, constipation, bloody or black/tarry stools. : Denies dysuria, urgency, hematuria, or frequency. Denies h/o kidney stones. +"kidney spot" being monitored Endocrine: Denies h/o of steroid use in the past 30 days. +DM2, hypothyroid Hematology: Denies history of bleeding or clotting disorder. Denies autoimmune disorders. ONC: No h/o CA. Denies h/o of chemotherapy in the past 30 days. Denies radiation in the past 90 days. Musculoskeletal: Denies joint pain and swelling. Denies weakness. Skin: Denies open sores and rashes. Denies bruising and bleeding. Objective PHYSICAL EXAM: VITALS: BP 124/60 Pulse 91 Temp 97.5 Resp 18 Ht 5' 10" (1.78m) Wt 194 lb (88.0kg) SpO2 98% BMI 27.84 kg/(m2). General: NAD. Cooperative. Skin: Skin is warm, no rashes, and no open sores. HEENT: Normocephalic. PERRLA, neck supple Cardiovascular: Normal S1 AND S2. RRR, No murmur. Lungs: CTA Bilaterally. No respiratory distress. Abdomen: Soft, non-tender, non-distended, +BS throughout Extremities: No edema. Neurological: Alert and oriented to person, place, and time. Pulses: radial pulses +2 Bilaterally Diagnostic tests reviewed for today's visit: Lab Value Units Date High Low HB 12.3 g/dL 12/10/2019 17.5 13.7 HCT 38.9 % 12/10/2019 51.0 40.1 WBC 9.86 thou/c* 12/10/2019 9.07 4.23 PLT 285 thou/c* 12/10/2019 365 141 NA 138 mmol/L 12/10/2019 144 136 K 4.1 mmol/L 12/10/2019 5.1 3.7 GLUC 113 mg/dL 12/10/2019 99 74 BUN 22 mg/dL 12/10/2019 24 9 CREAT 0.92 mg/dL 02/27/2020 1.22 0.73 PTSEC No results within date range. INR No results within date range. APTT No results within date range. ALT No results within date range. AST No results within date range. TBILI No results within date range. TSH No results within date range. Lab Value Units Date High Low HCGQT No results within date range. UHCG No results within date range. HCG, BODY* No results within date range. Lab Value Units Date High Low ABORHD No results within date range. ABSCREEN No results within date range. Hemoglobin A1C (%) Date Value 08/23/2019 9.8 METS: Take care of self; that is eating, dressing, bathing, using the toilet (2.75 METs) Patient denies any chest pain or undue shortness of breath with the above physical activity. ANESTHESIA FINDINGS: Intubation History: No history of difficult intubation Significant Anesthesia Considerations: None FAMILY HIISTORY OF ANESTHESIA: No known issues Denies personal or family history of malignant hyperthermia. Denies personal or family history of pseudocholinesterase deficiency. Dentition: Intact Implantable Devices: None Assessment/Plan Patient has the following medical conditions which may affect lenin-operative course: HTN- well-controlled on medications managed by PCP HLD- well-controlled on statin DM2- on metformin and insulin, managed by PCP. [facility], most recent BG check from 12/11/2019 was 126. will get A1C at [facility] Former Smoker- quit in 1989, 30 pack years PVD- on ASA 81 mg daily, follows with vascular surgery, Dr. Allen ASA- 81 mg daily, referred to prescribing provider for instruction. PLAN Dx: PVD (peripheral vascular disease) (HCC) [I73.9] Planned Procedure: Left leg Aortogram with runoffs, possible intervention, possible left arm approach at the request of Dr. Ryan Allen Planned Anesthetic: MAC The Following Tests/Procedures Have Been Initiated: COVID, ECG, PT, CBC, BMP ordered in Epic per surgeon. CONSULTS: No consults pending. Instructions Given to Patient: Patient given verbal and written preop instructions and voices comprehension and compliance. Antimicrobial soap and instructions given to patient. SIGNATURE: Sunshine Harris APRN.CNP PATIENT NAME: Elizabeth Modi DATE: May 13, 2020 TIME: 3:32 PM PAGER/CONTACT #: Normal [facility] PT Pnl PPPon 05-15-2020 INR Coag (PPP) [Relative time] 1.0 {INR} Normal 0.9-1.3 [facility] Comment on above: Order Comment: Speci men Type: BLOOD SPECIMEN Result Comment: Radha min K Antagonist (VKA) Therapeutic Range: INR 2 to 3 (Target INR of 2.5) Note: For patients treated with VKA drugs, such as warfarin, the [place] [employer] 2012 Guideline recommends a therapeutic INR range of 2 to 3 (target INR of 2.5). This recommendation includes high-risk patients with antiphospholipid syndrome with previous arterial or venous thromboembolism, current-generation mechanical or bioprosthetic aortic heart valve replacement. Note: Patients with mechanical aortic valve replacement and additional risk factors for thromboembolic events (atrial fibrillation, previous thromboembolism, LV dysfunction, hypercoagulable conditions) or an older generation mechanical AVR (i.e., ball in-Cage) or any mechanical MVR should have a INR therapeutic range of 2.5 to 3.5 (target INR of 3). Brando PAGAN, et al. Chest 2012, 141:7S-47S Dada RA, et al. [facility] 2017, 70: 252-289 Performed By: #### 3 4528-0 #### [facility] CLIA [id number] [address] [place] [address] PT Coag (PPP) [Time] 10.6 s Normal 9.7-13.0 [facility] Comment on above: Order Comment: Speci men Type: BLOOD SPECIMEN Performed By: #### 3 4528-0 #### [facility] CLIA [id number] [address] [place] [address] PT EDon 05-13-2020 PT ED HNO ID: [id number] Author: Jeni Izquierdo) KAVIN Shoemaker Service: ? Author Type: Registered Nurse Type: Patient Education Filed: 05/13/2020 10:37 AM Note Text: PRE OP LEARNING ASSESSMENT PROCEDURE/SURGERY: READINESS TO LEARN COGNITIVE ABILITY: Alert and oriented MOTIVATION TO LEARN: Eager FAMILY SUPPORT: Unable to assess - Family not present PATIENT LEARNS BEST BY: Multiple Methods FACTORS AFFECTING LEARNING: None PHYSICAL LIMITATIONS AFFECTING LEARNING: None Electronically Signed By: Jeni Shoemaker RN In Department: [place] SURGERY OR Normal [facility] PROGRESSon 04-29-2020 PROGRESS HNO ID: [id number] Author: Ryan Allen Service: ? Author Type: Physician Type: Progress Notes Filed: 04/29/2020 7:08 PM Note Text: This note was partially generated using [employer] voice recognition system. I spent 15+ minutes in the visit, with more than 50% of the total ghiw-ga-fcyx time of the visit in counseling / coordination of care. This was an office visit for follow-up will be reviewed recent imaging, reevaluated the left foot wound as well as talk to the patient and with his daughter who was on the telephone during the office visit during the Covny restrictions. CT scan that it been done in the past was reevaluated. We had hoped to see some improvement since his last office visit in March with wound healing but the lesion on the distal left foot seems to be fairly static without a whole lot of improvement. I reviewed imaging with the patient as well as reported with his daughter that it was a little hard to say whether or not there was a distal target for a bypass. Angiography was discussed but initially I felt that an arm access for better imaging down the left leg would be very challenging with some risk to the vertebral artery on the left side and certainly would not allow a lot of interventional possibilities. On closer inspection it would appear that maybe we could get into the common femoral on the right side which is his previously amputated side and get up and over the iliacs to the left side for images. The SFA on the left appears to be occluded shortly after its takeoff and whether or not an aggressive SFA intervention could be done is somewhat questionable. Imaging at that level would give us much better ideas about whether there would be a distal target if organ to consider a left femoropopliteal bypass. If we were able to open up his SFA even temporarily it might also allow better tibial flow even if there is some obstruction. Those images and possible intervention would likely be better tolerated if intervention is possible then a full left femoral to pop or femoral to distal tibial bypass. In discussion with the patient and his daughter this appears to be a reasonable option at least diagnostically for planning future surgery or potentially an interventional opportunity even if we do not get everything fully open in line down to the below-knee level. Potential harm as well as benefits was discussed and we will proceed with scheduling aortogram from the right groin with possible intervention in the left leg. Also possibility of needing left arm access if we cannot get up and over from the right groin. No palpable pulses are present in the left foot although Doppler signals are still faint. The patient is currently taking a statin: Yes The patient is currently taking aspirin: Yes [facility] (AGVASACC) MODIELIZABETH ([id number]) 1940 M Date Time Provider Department 04/28/20 11:00 AM RYAN ALLEN During your visit today, we recorded the following information about you: Temperature Blood pressure Weight Height 80 degrees 134/60 88 kg 1.778 m Ryan Allen MD 04/29/2020 7:08 PM Signed This note was partially generated using [employer] voice recognition system. I spent 15+ minutes in the visit, with more than 50% of the total avwi-ls-pway time of the visit in counseling / coordination of care. This was an office visit for follow-up will be reviewed recent imaging, reevaluated the left foot wound as well as talk to the patient and with his daughter who was on the telephone during the office visit during the Cov restrictions. CT scan that it been done in the past was reevaluated. We had hoped to see some improvement since his last office visit in March with wound healing but the lesion on the distal left foot seems to be fairly static without a whole lot of improvement. I reviewed imaging with the patient as well as reported with his daughter that it was a little hard to say whether or not there was a distal target for a bypass. Angiography was discussed but initially I felt that an arm access for better imaging down the left leg would be very challenging with some risk to the vertebral artery on the left side and certainly would not allow a lot of interventional possibilities. On closer inspection it would appear that maybe we could get into the common femoral on the right side which is his previously amputated side and get up and over the iliacs to the left side for images. The SFA on the left appears to be occluded shortly after its takeoff and whether or not an aggressive SFA intervention could be done is somewhat questionable. Imaging at that level would give us much better ideas about whether there would be a distal target if organ to consider a left femoropopliteal bypass. If we were able to open up his SFA even temporarily it might also allow better tibial flow even if there is some obstruction. Those images and possible intervention would likely be better tolerated if intervention is possible then a full left femoral to pop or femoral to distal tibial bypass. In discussion with the patient and his daughter this appears to be a reasonable option at least diagnostically for planning future surgery or potentially an interventional opportunity even if we do not get everything fully open in line down to the below-knee level. Potential harm as well as benefits was discussed and we will proceed with scheduling aortogram from the right groin with possible intervention in the left leg. Also possibility of needing left arm access if we cannot get up and over from the right groin. No palpable pulses are present in the left foot although Doppler signals are still faint. The patient is currently taking a statin: Yes The patient is currently taking aspirin: Yes Referring Provider: SELF [200] Allergies As of Date: 04/28/2020 (No Known Allergies) Date Reviewed: 04/28/2020 Reviewed by: Luke Alfaro) Austin - Fully Assessed Reason for Visit: Follow Up [171] Cmt: PVD. 02/28/20 CTA aorta with runoffs Primary Visit Diagnosis:PVD (peripheral vascular disease) (HCC) [I73.9] Other Visit Diagnoses:Nonhealing nonsurgical wound [T14.8XXA] Ischemia of lower extremity [I99.8] Below knee amputation (HCC) [S88.119A] Prescriptions as of 04/28/2020 Sig: ASPIRIN 81 MG TABLET,DELAYED * Aspirin Aspirin E.C. Active 8* GABAPENTIN 600 MG TABLET Take 600 mg by mouth twice da* INSULIN LISPRO (U-100) 100 UN* Inject 15 Units subcutaneousl* POTASSIUM CHLORIDE ER 20 MEQ * Take 20 mEq by mouth twice da* METOPROLOL SUCCINATE ER 25 MG* Take 25 mg by mouth once karli* CHOLECALCIFEROL (VITAMIN D3) * Take 1,000 Units by mouth onc* ATORVASTATIN 40 MG TABLET Take 40 mg by mouth once karli* LEVOTHYROXINE 25 MCG TABLET Take 25 mcg by mouth once jyoti* LISINOPRIL 10 MG TABLET Take 10 mg by mouth once karli* METFORMIN 1,000 MG TABLET Take 1,000 mg by mouth twice * Problem List As Of Date 04/28/2020 Noted Resolved Gangrene of foot (HCC) [I96] 08/21/2019 Diabetes (HCC) [E11.9] 08/21/2019 HTN (hypertension) [I10] 08/21/2019 Dyslipidemia [E78.5] 08/21/2019 Hypothyroidism [E03.9] 08/21/2019 Malnutrition of moderate degree (HCC) [E44.0] 08/22/2019 PVD (peripheral vascular disease) (HCC) [I73.9] 12/07/2019 Below knee amputation (HCC) [S88.119A] 12/07/2019 Nonhealing surgical wound [T81.89XA] 12/09/2019 Disposition: Return in about 4 weeks (around 05/26/2020). Follow-up and Disposition History Recorded Letter Text Encounter Status:Closed by RYAN ALLEN MD on 04/29/20 [facility] Beau 04-28-2020 JONAS Telephone (LUCRECIA) ELIZABETH MODI ([id number]) 1940 M Date Time Provider Department 04/28/20 RYAN ALLEN During your visit today, we recorded the following information about you: Maria Esther Gusman APRN.GURWINDER BECERRA 04/28/2020 1:53 PM Signed Orders signed. Thank you, Maria Esther Gusman APRN.GURWINDER Bren Santos 04/30/2020 2:25 PM Addendum I have scheduled the patient for a Left Leg Aortogram with runoffs, possible intervention possible left arm approach on 05/25/20 @ 1030am with an 830 am arrival time. Pretesting is on 05/15/20 @ 1120am [facility]- no fasting is required Covid is 05/23/20 @ 1130 am at [facility] Post OP is 06/23/20 @ 10 am with Netzley Mailed 04/30/20 preetijovanny Lambert has been notified of dates and times. Allergies As of Date: 04/28/2020 (No Known Allergies) Date Reviewed: 04/28/2020 Reviewed by: Luke Alfaro) Austin - Fully Assessed Reason for Visit: Schedule Surgery [1330] Primary Visit Diagnosis:PVD (peripheral vascular disease) (HCC) [I73.9] Order(s):SURGICAL REQUEST - ELECTIVE (01/2020) [5481920] Order #: [id number]: 1 HANDP FOR SURGERY [[id number]] Order #: [id number] PRE-PROCEDURE AND PRE-OPERATIVE COVID [SQPOCOVD] Order #: [id number] FUTURE CBC [SQCBC] Order #: [id number] FUTURE BASIC METABOLIC PNL [SQBMP] Order #: [id number] FUTURE PROTHROMBIN TIME/PT [SQPT] Order #: [id number] FUTURE ECG COMPLETE [ECG01] Order #: [id number] FUTURE Prescriptions as of 04/28/2020 Sig: ASPIRIN 81 MG TABLET,DELAYED * Aspirin Aspirin E.C. Active 8* GABAPENTIN 600 MG TABLET Take 600 mg by mouth twice da* INSULIN LISPRO (U-100) 100 UN* Inject 15 Units subcutaneousl* POTASSIUM CHLORIDE ER 20 MEQ * Take 20 mEq by mouth twice da* METOPROLOL SUCCINATE ER 25 MG* Take 25 mg by mouth once karli* CHOLECALCIFEROL (VITAMIN D3) * Take 1,000 Units by mouth onc* ATORVASTATIN 40 MG TABLET Take 40 mg by mouth once karli* LEVOTHYROXINE 25 MCG TABLET Take 25 mcg by mouth once jyoti* LISINOPRIL 10 MG TABLET Take 10 mg by mouth once karli* METFORMIN 1,000 MG TABLET Take 1,000 mg by mouth twice * Problem List As Of Date 04/28/2020 Noted Resolved Gangrene of foot (HCC) [I96] 08/21/2019 Diabetes (HCC) [E11.9] 08/21/2019 HTN (hypertension) [I10] 08/21/2019 Dyslipidemia [E78.5] 08/21/2019 Hypothyroidism [E03.9] 08/21/2019 Malnutrition of moderate degree (HCC) [E44.0] 08/22/2019 PVD (peripheral vascular disease) (HCC) [I73.9] 12/07/2019 Below knee amputation (HCC) [S88.119A] 12/07/2019 Nonhealing surgical wound [T81.89XA] 12/09/2019 Encounter Status:Closed by MARIA ESTHER GUSMAN CNP on 04/28/20 [facility] CNOVon 04-21-2020 CN[facility] Office Visit (AKURFL ) ELIZABETH MODI ([id number]) 1940 M Date Time Provider Department 04/21/20 1:30 PM YADI WHITE During your visit today, we recorded the following information about you: Weight Height 88 kg 1.778 m Yadi White DO, MBA 04/21/2020 3:13 PM Signed ?? [facility] [place] [facility] LOCATION: [address] [place] [address] NEW CONSULT VISIT PATIENT INFO: Elizabeth Modi 79 year old PCP: Dexter Reyes MD Consultation requested by and my final recommendations will be communicated back to the requesting physician by way of shared medical record or letter via US mail. Chief Complaint: Left renal mass HPI Left renal lesion, 2.5 cm Incidentally found. Has RLE amputation. Following Dr. Allen 1-Duration: 2020 2-Location: kidney 3-Severity: N/A 4-Quality: Not applicable 5-Context: N/A 6-Timing: N/A 7-Modifying factors: No treatment prior to referral 8-Associated signs AND symptoms: no additional symptoms No question data found. PATHOLOGY: N/A LAB: WBC (thou/cmm) Date Value 12/10/2019 9.86 (H) RBC (mil/cmm) Date Value 12/10/2019 4.42 (L) HGB (g/dL) Date Value 12/10/2019 12.3 (L) Hematocrit (%) Date Value 12/10/2019 38.9 (L) MCV (fl) Date Value 12/10/2019 88.0 MCH (pg) Date Value 12/10/2019 27.8 MCHC (%) Date Value 12/10/2019 31.6 (L) Platelet Count (thou/cmm) Date Value 12/10/2019 285 MPV (fl) Date Value 12/10/2019 10.5 Creatinine Date Value Ref Range Status 02/27/2020 0.92 0.73 - 1.22 mg/dL Final 12/10/2019 1.14 0.73 - 1.22 mg/dL Final 09/09/2019 0.73 0.67 - 1.17 mg/dL Final Comment: Use of this assay is not recommended for patients undergoing treatment with phenindione, due to the potential for falsely depressed results. 09/08/2019 0.71 0.67 - 1.17 mg/dL Final Comment: Use of this assay is not recommended for patients undergoing treatment with phenindione, due to the potential for falsely depressed results. IMAGING: CT Scan: EPIC I have independently reviewed films and my findings are the same. ALLERGIES: ALLERGIES No Known Allergies MEDICATIONS: aspirin, enteric coated (ASPIRIN, ENTERIC COATED) 81 mg EC tablet Aspirin Aspirin E.C. Active 81 MG DAILY@00 October 12, 2019 7:37am 10-12-2019 [facility] ([id number]) gabapentin (NEURONTIN) 600 mg tablet Take 600 mg by mouth twice daily. insulin lispro (HUMALOG KWIKPEN INSULIN) 100 unit/mL Inject 15 Units subcutaneously three times daily before meals. potassium chloride ER (K-DUR, KLOR-CON) 20 mEq tablet Take 20 mEq by mouth twice daily. metoprolol succinate ER (TOPROL XL) 25 mg 24 hr tablet Take 25 mg by mouth once daily. Cholecalciferol, Vitamin D3, (VITAMIN D) 25 mcg (1,000 unit) cap Take 1,000 Units by mouth once daily. atorvastatin (LIPITOR) 40 mg tablet Take 40 mg by mouth once daily. levothyroxine (SYNTHROID) 25 mcg tablet Take 25 mcg by mouth once daily. lisinopril (ZESTRIL, PRINIVIL) 10 mg tablet Take 10 mg by mouth once daily. metFORMIN (GLUCOPHAGE) 1,000 mg tablet Take 1,000 mg by mouth twice daily. Does the patient take any herbal medications?: No Medication list reviewed and reconciled with patient: Yes HISTORIES PAST MEDICAL HISTORY Diagnosis Date - DM (diabetes mellitus) (HCC) - Dyslipidemia - HTN (hypertension) - Hypothyroidism - PVD (peripheral vascular disease) (HCC) PAST SURGICAL HISTORY Procedure Laterality Date - PAST SURGICAL HISTORY OF 09/05/2019 Revision Rt BKA - VASCULAR SURGERY PROCEDURE Right 12/09/2019 Irrigation and debridement of right lower extremity wound with placement of wound VAC. No family history on file. Negative family history: No SOCIAL HISTORY Social History Tobacco Use - Smoking status: Former Smoker Types: Cigarettes Quit date: 01/07/1990 Years since quittin.3 - Smokeless tobacco: Never Used - Tobacco comment: STOPPED 28 YEARS AGO Substance Use Topics - Alcohol use: Yes Comment: OCCASIONAL - Drug use: Never Smoking Status Reviewed: Yes REVIEW OF SYSTEMS: GENERAL: No fever, chills, weight loss, or fatigue. HEAD AND NECK: No blurred vision or Sjogren's syndrome CARDIOVASCULAR: NO CHEST PAIN, PALPITATIONS, ANKLE EDEMA RESPIRATORY: No chronic cough, wheezing, dyspnea, hemoptysis. MUSCULOSKELETAL: NO CHRONIC BACK PAIN, ARTHRITIS, CHRONIC NECK PAIN SKIN: NO VARICOSE VEINS, RASH, ABNORMAL ITCHING BLOOD/LYMPHATIC: No easy bleeding, easy bruising, transfusion Hx NEUROLOGICAL: NO HEADACHES, NUMBNESS, SEIZURES, STROKE PSYCHIATRIC: No depression or inordinate anxiety The remainder of the ROS was negative. PHYSICAL EXAMINATION Ht 177.8 cm (5' 10") Wt 88 kg (194 lb) BMI 27.84 kg/m? General appearance: Well appearing, alert, in no acute distress and well-hydrated, well nourished Skin: Skin color, texture, turgor normal, no suspicious rashes or lesions Head: Normocephalic, no masses, lesions, tenderness or abnormalities Neck: Supple, no adenopathy; thyroid symmetric, normal size, no bruits Lungs: Clear to auscultation no wheezing or rhonchi Heart: RRR without murmur, gallop, or rubs. No ectopy Abdomen: Normal abdominal exam, Abdomen soft, non-tender. Bowel sounds normal. No masses, organomegaly Extremities: Extremities normal. No deformities, edema, or skin discoloration. Good capillary refill. Genitourinary: Exam NOT Indicated PVR: NA IMPRESSION/PLAN: 2.5 cm left renal mass Incidentally found. Vascular disease. RLE amputation. May need angioplasty on the left side. Will observe for now. May need renal biopsy if size increases. Will communicate with Dr. Allen regarding repeat imaging with contrast in 6 months. I spent 45 minutes in the visit, with more than 50% of the total wjvp-rd-sryp time of the visit in counseling / coordination of care. Yadi White DO MBA Letter to: Dexter Reyes MD Referring Provider: DEXTER REYES [facility]I [[id number]] Allergies As of Date: 04/21/2020 (No Known Allergies) Date Reviewed: 04/21/2020 Reviewed by: Yadi White - Fully Assessed Reason for Visit: Kidney Problem [61] Visit Diagnosis:Other specified disorders of kidney and ureter [N28.89] Order(s):CT KIDNEY WO/W IVCON [[id number]] Order #: [id number] FUTURE iv contrast (will be provided with radiology test)CT kidney wow Inject, intravenously, once for 1 dose.No IV access, insert saline lock prior to the beginning of sedation, infusion, injection of imaging exam. Discontinue saline lock post exam. If Pt. has a central line or IVAD, may access for administration according to line specific nursing protocol. Once exam is complete flush line and de-access according to line specific nursing protocol in the CT contrast administration guidelines link.Disp: 1 EachRfl: 0 Prescriptions as of 04/21/2020 Sig: IV CONTRAST (RADIOLOGY PROCED* CT kidney wow Inject, intrave* ASPIRIN 81 MG TABLET,DELAYED * Aspirin Aspirin E.C. Active 8* GABAPENTIN 600 MG TABLET Take 600 mg by mouth twice da* INSULIN LISPRO (U-100) 100 UN* Inject 15 Units subcutaneousl* POTASSIUM CHLORIDE ER 20 MEQ * Take 20 mEq by mouth twice da* METOPROLOL SUCCINATE ER 25 MG* Take 25 mg by mouth once karli* CHOLECALCIFEROL (VITAMIN D3) * Take 1,000 Units by mouth onc* ATORVASTATIN 40 MG TABLET Take 40 mg by mouth once karli* LEVOTHYROXINE 25 MCG TABLET Take 25 mcg by mouth once jyoti* LISINOPRIL 10 MG TABLET Take 10 mg by mouth once karli* METFORMIN 1,000 MG TABLET Take 1,000 mg by mouth twice * Problem List As Of Date 04/21/2020 Noted Resolved Gangrene of foot (HCC) [I96] 08/21/2019 Diabetes (HCC) [E11.9] 08/21/2019 HTN (hypertension) [I10] 08/21/2019 Dyslipidemia [E78.5] 08/21/2019 Hypothyroidism [E03.9] 08/21/2019 Malnutrition of moderate degree (HCC) [E44.0] 08/22/2019 PVD (peripheral vascular disease) (HCC) [I73.9] 12/07/2019 Below knee amputation (HCC) [S88.119A] 12/07/2019 Nonhealing surgical wound [T81.89XA] 12/09/2019 Prescriptions ordered this encounter Disp Refills Start End IV CONTRAST (RADIOLOGY PROCEDURE) 1 Ea* 0 04/21/2020 04/22/2020 Class: In Office Sig: CT kidney wow Inject, intravenously, once for 1 dose.No IV access, insert saline lock prior to the beginning of sedation, infusion, injection of imaging exam. Discontinue saline lock post exam. If Pt. has a central line or IVAD, may access for administration according to line specific nursing protocol. Once exam is complete flush line and de-access according to line specific nursing protocol in the CT contrast administration guidelines link. Encounter Status:Closed by YADI WHITE on 04/21/20 Normal [facility] PROGRESSon 04-21-2020 PROGRESS HNO ID: [id number] Author: Yadi White Service: ? Author Type: Physician Type: Progress Notes Filed: 04/21/2020 3:13 PM Note Text: ?? [facility] [place] [facility] LOCATION: [address] [place] [address] NEW CONSULT VISIT PATIENT INFO: Elizabeth Modi 79 year old PCP: Dexter Reyes MD Consultation requested by and my final recommendations will be communicated back to the requesting physician by way of shared medical record or letter via [place] mail. Chief Complaint: Left renal mass HPI Left renal lesion, 2.5 cm Incidentally found. Has RLE amputation. Following Dr. Allen 1-Duration: 2019 2-Location: kidney 3-Severity: N/A 4-Quality: Not applicable 5-Context: N/A 6-Timing: N/A 7-Modifying factors: No treatment prior to referral 8-Associated signs AND symptoms: no additional symptoms No question data found. PATHOLOGY: N/A LAB: WBC (thou/cmm) Date Value 12/10/2019 9.86 (H) RBC (mil/cmm) Date Value 12/10/2019 4.42 (L) HGB (g/dL) Date Value 12/10/2019 12.3 (L) Hematocrit (%) Date Value 12/10/2019 38.9 (L) MCV (fl) Date Value 12/10/2019 88.0 MCH (pg) Date Value 12/10/2019 27.8 MCHC (%) Date Value 12/10/2019 31.6 (L) Platelet Count (thou/cmm) Date Value 12/10/2019 285 MPV (fl) Date Value 12/10/2019 10.5 Creatinine Date Value Ref Range Status 02/27/2020 0.92 0.73 - 1.22 mg/dL Final 12/10/2019 1.14 0.73 - 1.22 mg/dL Final 09/09/2019 0.73 0.67 - 1.17 mg/dL Final Comment: Use of this assay is not recommended for patients undergoing treatment with phenindione, due to the potential for falsely depressed results. 09/08/2019 0.71 0.67 - 1.17 mg/dL Final Comment: Use of this assay is not recommended for patients undergoing treatment with phenindione, due to the potential for falsely depressed results. IMAGING: CT Scan: EPIC I have independently reviewed films and my findings are the same. ALLERGIES: ALLERGIES No Known Allergies MEDICATIONS: aspirin, enteric coated (ASPIRIN, ENTERIC COATED) 81 mg EC tablet Aspirin Aspirin E.C. Active 81 MG DAILY@0800 October 12, 2019 7:37am 10-12-2019 [facility] ([id number]) gabapentin (NEURONTIN) 600 mg tablet Take 600 mg by mouth twice daily. insulin lispro (HUMALOG KWIKPEN INSULIN) 100 unit/mL Inject 15 Units subcutaneously three times daily before meals. potassium chloride ER (K-DUR, KLOR-CON) 20 mEq tablet Take 20 mEq by mouth twice daily. metoprolol succinate ER (TOPROL XL) 25 mg 24 hr tablet Take 25 mg by mouth once daily. Cholecalciferol, Vitamin D3, (VITAMIN D) 25 mcg (1,000 unit) cap Take 1,000 Units by mouth once daily. atorvastatin (LIPITOR) 40 mg tablet Take 40 mg by mouth once daily. levothyroxine (SYNTHROID) 25 mcg tablet Take 25 mcg by mouth once daily. lisinopril (ZESTRIL, PRINIVIL) 10 mg tablet Take 10 mg by mouth once daily. metFORMIN (GLUCOPHAGE) 1,000 mg tablet Take 1,000 mg by mouth twice daily. Does the patient take any herbal medications?: No Medication list reviewed and reconciled with patient: Yes HISTORIES PAST MEDICAL HISTORY Diagnosis Date - DM (diabetes mellitus) (HCC) - Dyslipidemia - HTN (hypertension) - Hypothyroidism - PVD (peripheral vascular disease) (HCC) PAST SURGICAL HISTORY Procedure Laterality Date - PAST SURGICAL HISTORY OF 09/05/2019 Revision Rt BKA - VASCULAR SURGERY PROCEDURE Right 12/09/2019 Irrigation and debridement of right lower extremity wound with placement of wound VAC. No family history on file. Negative family history: No SOCIAL HISTORY Social History Tobacco Use - Smoking status: Former Smoker Types: Cigarettes Quit date: 01/07/1990 Years since quittin.3 - Smokeless tobacco: Never Used - Tobacco comment: STOPPED 28 YEARS AGO Substance Use Topics - Alcohol use: Yes Comment: OCCASIONAL - Drug use: Never Smoking Status Reviewed: Yes REVIEW OF SYSTEMS: GENERAL: No fever, chills, weight loss, or fatigue. HEAD AND NECK: No blurred vision or Sjogren's syndrome CARDIOVASCULAR: NO CHEST PAIN, PALPITATIONS, ANKLE EDEMA RESPIRATORY: No chronic cough, wheezing, dyspnea, hemoptysis. MUSCULOSKELETAL: NO CHRONIC BACK PAIN, ARTHRITIS, CHRONIC NECK PAIN SKIN: NO VARICOSE VEINS, RASH, ABNORMAL ITCHING BLOOD/LYMPHATIC: No easy bleeding, easy bruising, transfusion Hx NEUROLOGICAL: NO HEADACHES, NUMBNESS, SEIZURES, STROKE PSYCHIATRIC: No depression or inordinate anxiety The remainder of the ROS was negative. PHYSICAL EXAMINATION Ht 177.8 cm (5' 10") Wt 88 kg (194 lb) BMI 27.84 kg/m? General appearance: Well appearing, alert, in no acute distress and well-hydrated, well nourished Skin: Skin color, texture, turgor normal, no suspicious rashes or lesions Head: Normocephalic, no masses, lesions, tenderness or abnormalities Neck: Supple, no adenopathy; thyroid symmetric, normal size, no bruits Lungs: Clear to auscultation no wheezing or rhonchi Heart: RRR without murmur, gallop, or rubs. No ectopy Abdomen: Normal abdominal exam, Abdomen soft, non-tender. Bowel sounds normal. No masses, organomegaly Extremities: Extremities normal. No deformities, edema, or skin discoloration. Good capillary refill. Genitourinary: Exam NOT Indicated PVR: NA IMPRESSION/PLAN: 2.5 cm left renal mass Incidentally found. Vascular disease. RLE amputation. May need angioplasty on the left side. Will observe for now. May need renal biopsy if size increases. Will communicate with Dr. Allen regarding repeat imaging with contrast in 6 months. I spent 45 minutes in the visit, with more than 50% of the total pfou-vi-tlxn time of the visit in counseling / coordination of care. Yadi White DO MBA Letter to: Dexter Reyes MD [facility] CNOVon 03-31-2020 CN Office Visit (AGVASACC) ELIZABETH MODI ([id number]) 1940 M Date Time Provider Department 03/31/20 11:00 AM RYAN ALLEN During your visit today, we recorded the following information about you: Pulse Respiration Blood pressure Weight 78/minute 18/minute 124/70 88 kg Height 1.778 m Ryan Allen MD 03/31/2020 12:50 PM Signed I spent 15+ minutes in the visit, with more than 50% of+ the total cekq-ga-rjwx time of the visit in counseling / coordination of care. This note partially generated using [employer] voice recognition system. Mr. Modi and his daughter were seen in the office today for follow-up of his peripheral vascular disease. He's feeling up a complicated wound in the right below-knee stump but also has a left great toe nonhealing wound. I believe this is being followed by the health professional or the wound care center in the [facility]. He also notes that the prosthetic company is having trouble getting appropriate authorization for his prosthesis. Since the patient left I have call that office, [facility] [employer]. We have left a message from then to contact us or fax us their request. 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 At this junction we've asked him to continue with his plans for his prosthesis and will contact and hopefully get appropriate authorization for were reviewed needs from [employer]. He has had a urologist in the past but can't remember the name in the [facility]. I would refer to the primary care office if they feel appropriate urologist is available locally in this patient. If not we will be happy to refer to a urologist in the [facility]. Hopefully within the next few weeks or a month we will have better information on the renal lesion. In the fairly near future if his left toe lesion remains stable we will consider aortogram with left leg runoff and possible intervention. I'm not sure endovascular therapy will really be possible for the length of left superficial femoral artery occlusion that this patient has however the CT a has not given great imaging to see whether there is distal runoff to the foot through his tibial vessels. This could certainly be ascertained better with angiography still holding out the possible option for endovascular therapy. We'll plan to see him or at least touch base with him in a month. If not to schedule an arteriogram and to see how he is doing with his diagnostics on the left renal lesion. We'll plan on any changes is medical treatment at this time. He and his daughter know that should he see worsening in the left foot wound he should let us know quickly. Currently the patient is taking statin and aspirin medications. Referring Provider: SELF [[id number]] Allergies As of Date: 03/31/2020 (No Known Allergies) Date Reviewed: 03/31/2020 Reviewed by: Ryan Allen - Fully Assessed Reason for Visit: Peripheral Vascular Disease (PVD) [3545] Cmt: Elizabeth is here to review 02/28/20 CTA abd aorta with runoffs Primary Visit Diagnosis:PVD (peripheral vascular disease) ([facility]) [I73.9] Other Visit Diagnoses:Below knee amputation ([facility]) [S88.119A] Type 2 diabetes mellitus with other specified complication, without long-term current use of insulin ([facility]) [E11.69] Nonhealing nonsurgical wound [T14.8XXA] Prescriptions as of 03/31/2020 Sig: ASPIRIN 81 MG TABLET,DELAYED * Aspirin Aspirin E.C. Active 8* INSULIN LISPRO (U-100) 100 UN* Inject 15 Units subcutaneousl* POTASSIUM CHLORIDE ER 20 MEQ * Take 20 mEq by mouth twice da* METOPROLOL SUCCINATE ER 25 MG* Take 25 mg by mouth once karli* CHOLECALCIFEROL (VITAMIN D3) * Take 1,000 Units by mouth onc* ATORVASTATIN 40 MG TABLET Take 40 mg by mouth once karli* LEVOTHYROXINE 25 MCG TABLET Take 25 mcg by mouth once jyoti* LISINOPRIL 10 MG TABLET Take 10 mg by mouth once karli* METFORMIN 1,000 MG TABLET Take 1,000 mg by mouth twice * GABAPENTIN 600 MG TABLET Take 600 mg by mouth twice da* Problem List As Of Date 03/31/2020 Noted Resolved Gangrene of foot ([facility]) [I96] 08/21/2019 Diabetes (HCC) [E11.9] 08/21/2019 HTN (hypertension) [I10] 08/21/2019 Dyslipidemia [E78.5] 08/21/2019 Hypothyroidism [E03.9] 08/21/2019 Malnutrition of moderate degree ([facility]) [E44.0] 08/22/2019 PVD (peripheral vascular disease) ([facility]) [I73.9] 12/07/2019 Below knee amputation ([facility]) [S88.119A] 12/07/2019 Nonhealing surgical wound [T81.89XA] 12/09/2019 Letter Text Encounter Status:Closed by RYAN ALLEN MD on 03/31/20 [facility] PROGRESSon 03-31-2020 PROGRESS HNO ID: [id number] Author: Ryan Allen Service: ? Author Type: Physician Type: Progress Notes Filed: 03/31/2020 12:50 PM Note Text: I spent 15+ minutes in the visit, with more than 50% of+ the total cpzr-bv-wfbo time of the visit in counseling / coordination of care. This note partially generated using [employer] voice recognition system. Mr. Modi and his daughter were seen in the office today for follow-up of his peripheral vascular disease. He's feeling up a complicated wound in the right below-knee stump but also has a left great toe nonhealing wound. I believe this is being followed by the health professional or the wound care center in the [facility]. He also notes that the prosthetic company is having trouble getting appropriate authorization for his prosthesis. Since the patient left I have call that office, [facility] [employer]. We have left a message from then to contact us or fax us their request. 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 At this junction we've asked him to continue with his plans for his prosthesis and will contact and hopefully get appropriate authorization for were reviewed needs from [employer]. He has had a urologist in the past but can't remember the name in the [facility]. I would refer to the primary care office if they feel appropriate urologist is available locally in this patient. If not we will be happy to refer to a urologist in the [facility]. Hopefully within the next few weeks or a month we will have better information on the renal lesion. In the fairly near future if his left toe lesion remains stable we will consider aortogram with left leg runoff and possible intervention. I'm not sure endovascular therapy will really be possible for the length of left superficial femoral artery occlusion that this patient has however the CT a has not given great imaging to see whether there is distal runoff to the foot through his tibial vessels. This could certainly be ascertained better with angiography still holding out the possible option for endovascular therapy. We'll plan to see him or at least touch base with him in a month. If not to schedule an arteriogram and to see how he is doing with his diagnostics on the left renal lesion. We'll plan on any changes is medical treatment at this time. He and his daughter know that should he see worsening in the left foot wound he should let us know quickly. Currently the patient is taking statin and aspirin medications. [facility] MODI ([id number]) 1940 M Date Time Provider Department 03/04/20 RYAN ALLEN AGVASACC During your visit today, we recorded the following information about you: Ludivina Whitfield 03/04/2020 1:03 PM Signed Called and spoke to patient's daughter regarding scheduling follow up appointment to go over CT scan. She stated she would call back to schedule later. Allergies As of Date: 03/04/2020 (No Known Allergies) Date Reviewed: 02/13/2020 Reviewed by: Kassidy Avila LPN - Fully Assessed Reason for Visit: Appointment [[id number]] Prescriptions as of 03/04/2020 Sig: GABAPENTIN 600 MG TABLET Take 600 mg by mouth twice da* INSULIN LISPRO (U-100) 100 UN* Inject 15 Units subcutaneousl* POTASSIUM CHLORIDE ER 20 MEQ * Take 20 mEq by mouth twice da* METOPROLOL SUCCINATE ER 25 MG* Take 25 mg by mouth once karli* CHOLECALCIFEROL (VITAMIN D3) * Take 1,000 Units by mouth onc* ATORVASTATIN 40 MG TABLET Take 40 mg by mouth once karli* LEVOTHYROXINE 25 MCG TABLET Take 25 mcg by mouth once jyoti* LISINOPRIL 10 MG TABLET Take 10 mg by mouth once karli* METFORMIN 1,000 MG TABLET Take 1,000 mg by mouth twice * Problem List As Of Date 03/04/2020 Noted Resolved Gangrene of foot (HCC) [I96] 08/21/2019 Diabetes (HCC) [E11.9] 08/21/2019 HTN (hypertension) [I10] 08/21/2019 Dyslipidemia [E78.5] 08/21/2019 Hypothyroidism [E03.9] 08/21/2019 Malnutrition of moderate degree (HCC) [E44.0] 08/22/2019 PVD (peripheral vascular disease) (HCC) [I73.9] 12/07/2019 Below knee amputation (HCC) [S88.119A] 12/07/2019 Nonhealing surgical wound [T81.89XA] 12/09/2019 Encounter Status:Closed by LUDIVINA WHITFIELD on 03/04/20 [facility] CTA ABD/PEL/LOWER EXT WO/W I VCONon 02-28-2020 CTA ABD/PEL/LOWER EXT WO/W IVCON Final Report DATE OF EXAM: Feb 28 2020 4:00PM [facility] [id number] - CTA ABD/PEL/LOWER EXT WO/W IVCON / PROCEDURE REASON: multiple diagnoses Physician Interpretation EXAMINATION: CTA ABD/PEL/LOWER EXT WO/W IVCON Exam Date: 02/28/2020 4:00 PM CLINICAL HISTORY: Ischemia of lower extremity PVD (peripheral vascular disease) (HCC) Technique: Helical CT of the abdomen, pelvis and lower extremities was obtained in angiographic phase after the injection of 150 mL of Omnipaque 350. Slice thickness 1.25 mm, reconstructions of 2.5 mm intervals. Post-processed images {Maximum intensity Projection (MIP), Volume-rendered (VR), or Surface shaded display images (SSD)} were created, reviewed and archived. 3-D postprocessing was performed on the workstation. Contrast: IV 100 ml of Omnipaque 350 CT Radiation dose: Integrated Dose-length product (DLP) for this visit = 1262.[address] Dose Reduction Employed: Automated exposure control(AEC) and iterative recon COMPARISON: Aorta and lower extremities runoff 08/27/2019 No signs of RESULT: VASCULAR: Abdominal Aorta: Mild diffuse atherosclerotic disease. The quantity tortuous infrarenal aorta but no aneurysmal dilation. Mesenteric vessels: Mild narrowing at the origin of the celiac trunk as it passes through the diaphragmatic hiatus. Dense atherosclerotic plaque at the origin of the SMA with distal reconstitution of flow. Renal arteries: Mild calcifications at the origin of the renal arteries but no significant stenosis. Accessory artery on the inferior left renal pole is patent. Iliac arteries:Mild focal narrowing at the proximal left common iliac artery with minimal luminal diameter of 0.7 cm. Otherwise, moderate diffuse atherosclerotic disease of the common iliac and internal iliac arteries but no occlusion or significant stenosis. Lower extremities arteries: Right: Below the knee amputation. - External Iliac: No significant stenosis. - Common femoral: Postsurgical changes in the right inguinal region - Deep Femoral: Moderate atherosclerotic calcification the origin. Maintained opacification distally. - Superficial Femoral: Occluded at the origin. Prominent deep collaterals. - Popliteal: Dense atherosclerotic calcifications and occlusion. - Tibioperoneal trunk: Reconstitution of flow - Posterior tibial: Diffuse atherosclerotic plaque. - Peroneal: Diffuse atherosclerotic plaque - Anterior tibial: Diffuse atherosclerotic plaque - Dorsalis pedis: N/A Left: - External Iliac: Mild focal narrowing at the distal segment. - Common femoral: Moderate atherosclerotic plaque and focal narrowing. - Deep Femoral: Maintaining opacification, moderate diffuse atherosclerotic disease. - Superficial Femoral: Proximal occlusion - Popliteal: Dense atherosclerotic plaque. Reconstitution of flow related to collateral above the knee - Tibioperoneal trunk: Diffuse atherosclerotic plaque and severe narrowing - Posterior tibial: Diffuse atherosclerotic plaque but maintained distal flow. - Peroneal: Maintaining opacification - Anterior tibial: Diffuse atherosclerotic plaque and trickle flow the study. - Dorsalis pedis: Incompletely opacified and maintaining opacification of the plantar arch. ABDOMEN AND PELVIS: Liver: A 2.5 cm left hepatic cyst. Biliary: No bile duct dilation. Gallbladder is unremarkable. Spleen: No mass. No splenomegaly. Pancreas: No mass or duct dilation. Adrenals:No mass. Kidneys: Symmetric nephrograms. No hydronephrosis or nephrolithiasis. Vascular calcifications in the renal pelvis bilaterally. A 2.8 cm on patient with few calcifications in the left interpolar region is worrisome for renal cell malignancy. GI tract: No dilation or wall thickening. Appendix is normal. No bowel obstruction. Diffuse colonic diverticulosis without evidence of acute inflammation. Lymph nodes: No abdominal lymphadenopathy. Mesentery/Peritoneum: No ascites or mass. Retroperitoneum: No mass. Pelvis: No mass, ascites or fluid collection. Enlarged prostate measures up to 5.2 cm in transverse diameter. MUSCULOSKELETAL SOFT TISSUES: Bones:Diffuse osseous demineralization. Tricompartmental degenerative changes of the knees. Right below the knee amputation with the subcutaneous fluid collection or significant skin thickening. Unchanged 1.2 cm calcific body in the infrapatellar fat pad. Soft tissues: Unremarkable IMPRESSION: VASCULAR: Diffuse atherosclerotic plaque. Occluded bilateral common femoral arteries. Right: Distal reconstitution of flow in the distal popliteal artery. Left: Reconstitution of flow in the proximal popliteal artery. Incomplete opacification of the anterior tibialis and dorsalis pedis arteries. Maintained opacification of the atherosclerotic posterior tibial and peroneal arteries. NON VASCULAR: 1. A 2.8 cm hypoattenuating left renal lesion with punctate calcifications is worrisome for renal cell malignancy. Recommend correlation with prior studies and urology consultation, possible renal protocol CT or MRI. 2. Right [id number] amputation. No subcutaneous fat stranding or fluid collection. Other chronic findings, as above. Assistant Golf Professional: ONEL Transcribe Date/Time: Mar 02 2020 2:59P Dictated by : ANDRE BUI MD This examination was interpreted and the report reviewed and electronically signed by: ANDRE BUI MD on Mar 02 2020 3:31PM EST Normal [facility] CNOVon 02-13-2020 CNOV Office Visit (AGVASACC) ELIZABETH MODI ([id number]) 1940 M Date Time Provider Department 02/13/20 1:30 PM MARIA ESTHER GUSMAN (CARDIOGRAPHER, NAIL ARTIST)LUCRECIA During your visit today, we recorded the following information about you: Pulse Respiration Blood pressure Weight 76/minute 18/minute 118/64 88 kg Height 1.778 m Maria Esther Gusman APRN.NAIL ARTIST, NAIL ARTIST 02/13/2020 4:20 PM Signed Elizabeth Modi 79 year old male S/P Guillotine right above ankle/below-knee amputation; Angiogram with bilateral lower extremity runoff; Right femoral endarterectomy with patch angioplasty; Revision of a right below-knee amputation; Irrigation and debridement of right lower extremity wound with placement of wound VAC PROCEDURE: As above by Dr. Figueroa; Dr. Parmar; Dr. Parmar; Dr. Allen; Dr. Allen DATE: 08/23/19; 08/27/19; 09/02/19; 09/05/19; 12/11/19 SUBJECTIVE: Elizabeth Modi returns to the office today for ongoing evaluation following his RLE surgeries. He is glad to report today, that after many, many months, his incision has finally healed! He was able to discontinue the wound vac therapy early last week, and really has only been needing a dry dressing over his stump. There are small scabbed areas at either side of the incision, and he is careful to allow those to heal without picking or pulling at them. He has not been in contact with [employer] in some time, as he was advised to wait until cleared from the wound vac. Additionally, he reports that he's been seeing a cyber transport systems specialist for the wounds on his left foot, and she is wondering if and what plans are for the circulation in his left leg (poor circulation noted earlier this year, but no infection or worsening of wounds). EXAM: Neurological Exam: Normal; Awake, alert, oriented, pleasant, and appropriate; Strength and sensation grossly intact Right Stump Incision: Clean, dry, well approximated, and well healed Left Foot: Wounds not evaluated d/t dressing; Foot is warm and dry without pain or tenderness IMPRESSION: Stable post op; OK to follow-up with [employer] for RLE prosthetic; Will discuss with Dr. Allen plan for evaluation/treatment of LLE with continued wounds. PLAN: Will proceed with CTA to further evaluation LLE at this time. Pt encouraged to call with any questions, problems, concerns, or changes. The patient is currently taking a statin: Yes The patient is currently taking aspirin: Yes Maria Esther Gusman APRN.NAIL ARTIST Referring Provider: SELF [200] Allergies As of Date: 02/13/2020 (No Known Allergies) Date Reviewed: 02/13/2020 Reviewed by: Kassidy Avila LPN - Fully Assessed Reason for Visit: Peripheral Vascular Disease (PVD) [3545] Cmt: Elizabeth is here for 4 week follow up Rt BKA Primary Visit Diagnosis:PVD (peripheral vascular disease) (HCC) [I73.9] Other Visit Diagnoses:Hx of BKA, right (HCC) [Z89.511] Open wound of left foot with complication, initial encounter [S91.302A] Ischemia of lower extremity [I99.8] Order(s):CTA ABD/PEL LOWER EXTREM WO/W IVCON [[id number]] Order #: [id number] FUTURE iv contrast (will be provided with radiology test)CTA ABD/PEL LE - No IV access, insert saline lock prior to the sedation, infusion, injection for imaging exam. Discontinue saline lock post exam. If Pt. has a central line or IVAD, may access for administration according to line specific nursing protocol. Once exam is complete flush line and de-access according to line specific nursing protocol in the CT contrast administration guidelines link.Disp: 1 EachRfl: 0 CREATININE BLD [SQCRET] Order #: [id number] FUTURE Prescriptions as of 02/13/2020 Sig: INSULIN LISPRO (U-100) 100 UN* Inject 15 Units subcutaneousl* POTASSIUM CHLORIDE ER 20 MEQ * Take 20 mEq by mouth twice da* METOPROLOL SUCCINATE ER 25 MG* Take 25 mg by mouth once karli* CHOLECALCIFEROL (VITAMIN D3) * Take 1,000 Units by mouth onc* ATORVASTATIN 40 MG TABLET Take 40 mg by mouth once karli* LEVOTHYROXINE 25 MCG TABLET Take 25 mcg by mouth once jyoti* LISINOPRIL 10 MG TABLET Take 10 mg by mouth once karli* METFORMIN 1,000 MG TABLET Take 1,000 mg by mouth twice * IV CONTRAST (RADIOLOGY PROCED* CTA ABD/PEL LE - No IV access* GABAPENTIN 600 MG TABLET Take 600 mg by mouth twice da* Problem List As Of Date 02/13/2020 Noted Resolved Gangrene of foot (HCC) [I96] 08/21/2019 Diabetes (HCC) [E11.9] 08/21/2019 HTN (hypertension) [I10] 08/21/2019 Dyslipidemia [E78.5] 08/21/2019 Hypothyroidism [E03.9] 08/21/2019 Malnutrition of moderate degree (HCC) [E44.0] 08/22/2019 PVD (peripheral vascular disease) (HCC) [I73.9] 12/07/2019 Below knee amputation (HCC) [S88.119A] 12/07/2019 Nonhealing surgical wound [T81.89XA] 12/09/2019 Prescriptions ordered this encounter Disp Refills Start End IV CONTRAST (RADIOLOGY PROCEDURE) 1 Ea* 0 02/13/2020 02/14/2020 Class: In Office Sig: CTA ABD/PEL LE - No IV access, insert saline lock prior to the sedation, infusion, injection for imaging exam. Discontinue saline lock post exam. If Pt. has a central line or IVAD, may access for administration according to line specific nursing protocol. Once exam is complete flush line and de-access according to line specific nursing protocol in the CT contrast administration guidelines link. Medications Discontinued During This Encounter Prescriptions - amoxicillin-clavulanic acid (AUGMENTIN) 875-125 mg per tablet (Discontinued) Take 1 tablet by mouth twice daily. (14 days therapy) Letter Text Encounter Status:Closed by MARIA ESTHER GUSMAN CNP on 02/13/20 [facility] PROGRESSon 02-13-2020 PROGRESS HNO ID: [id number] Author: Maria Esther (Pediatric Critical Care Nurse Mental Health Professional) GURWINDER Gusman Service: ? Author Type: Nurse Practitioner Type: Progress Notes Filed: 02/13/2020 4:20 PM Note Text: Elizabeth Modi 79 year old male S/P Guillotine right above ankle/below-knee amputation; Angiogram with bilateral lower extremity runoff; Right femoral endarterectomy with patch angioplasty; Revision of a right below-knee amputation; Irrigation and debridement of right lower extremity wound with placement of wound VAC PROCEDURE: As above by Dr. Figueroa; Dr. Parmar; Dr. Parmar; Dr. Allen; Dr. Allen DATE: 08/23/19; 08/27/19; 09/02/19; 09/05/19; 12/11/19 SUBJECTIVE: Elizabeth Modi returns to the office today for ongoing evaluation following his RLE surgeries. He is glad to report today, that after many, many months, his incision has finally healed! He was able to discontinue the wound vac therapy early last week, and really has only been needing a dry dressing over his stump. There are small scabbed areas at either side of the incision, and he is careful to allow those to heal without picking or pulling at them. He has not been in contact with [employer] in some time, as he was advised to wait until cleared from the wound vac. Additionally, he reports that he's been seeing a cyber transport systems specialist for the wounds on his left foot, and she is wondering if and what plans are for the circulation in his left leg (poor circulation noted earlier this year, but no infection or worsening of wounds). EXAM: Neurological Exam: Normal; Awake, alert, oriented, pleasant, and appropriate; Strength and sensation grossly intact Right Stump Incision: Clean, dry, well approximated, and well healed Left Foot: Wounds not evaluated d/t dressing; Foot is warm and dry without pain or tenderness IMPRESSION: Stable post op; OK to follow-up with [employer] for RLE prosthetic; Will discuss with Dr. Allen plan for evaluation/treatment of LLE with continued wounds. PLAN: Will proceed with CTA to further evaluation LLE at this time. Pt encouraged to call with any questions, problems, concerns, or changes. The patient is currently taking a statin: Yes The patient is currently taking aspirin: Yes Maria Esther Gusman APRN.[facility]URWINDER [facility] JONAS Telephone (LUCRECIA) MODIELIZABETH ([id number]) 1940 M Date Time Provider Department 02/05/20 RYAN ALLEN During your visit today, we recorded the following information about you: Luke Pérez LPN 02/05/2020 10:51 AM Signed Millie from [facility] called stating that there has been no drainage in the canister the past couple visits. They removed it yesterday and wound had scant drainage and a depth of 0.2cm. They are wondering if they can D/C wound vac and put a wet to dry on. Thanks, MARV Blum APRN.GURWINDER BECERRA 02/05/2020 11:03 AM Signed Yes. Agree with plan to DC vac and use W-D dressing BID. Thanks, Maria Esther Gusman APRN.GURWINDER Pérez LPN 02/05/2020 11:24 AM Signed Relayed information to [facility] nurse. Acknowledged new order for wet to dry bid Allergies As of Date: 02/05/2020 (No Known Allergies) Date Reviewed: 01/08/2020 Reviewed by: Ryan Allen - Fully Assessed Reason for Visit: Orders [681] Prescriptions as of 02/05/2020 Sig: GABAPENTIN 600 MG TABLET Take 600 mg by mouth twice da* INSULIN LISPRO (U-100) 100 UN* Inject 15 Units subcutaneousl* AMOXICILLIN 875 MG-POTASSIUM * Take 1 tablet by mouth twice * POTASSIUM CHLORIDE ER 20 MEQ * Take 20 mEq by mouth twice da* METOPROLOL SUCCINATE ER 25 MG* Take 25 mg by mouth once karli* CHOLECALCIFEROL (VITAMIN D3) * Take 1,000 Units by mouth onc* ATORVASTATIN 40 MG TABLET Take 40 mg by mouth once karli* LEVOTHYROXINE 25 MCG TABLET Take 25 mcg by mouth once jyoti* LISINOPRIL 10 MG TABLET Take 10 mg by mouth once karli* METFORMIN 1,000 MG TABLET Take 1,000 mg by mouth twice * Problem List As Of Date 02/05/2020 Noted Resolved Gangrene of foot (HCC) [I96] 08/21/2019 Diabetes (HCC) [E11.9] 08/21/2019 HTN (hypertension) [I10] 08/21/2019 Dyslipidemia [E78.5] 08/21/2019 Hypothyroidism [E03.9] 08/21/2019 Malnutrition of moderate degree (HCC) [E44.0] 08/22/2019 PVD (peripheral vascular disease) (HCC) [I73.9] 12/07/2019 Below knee amputation (HCC) [S88.119A] 12/07/2019 Nonhealing surgical wound [T81.89XA] 12/09/2019 Encounter Status:Closed by LUKE PÉREZ LPN on 02/05/20 [facility] MARYANOVon 01-08-2020 CNOV Office Visit (AGVASACC) ELIZABETH MODI ([id number]) 1940 M Date Time Provider Department 01/08/20 3:30 PM RYAN ALLENVASACC During your visit today, we recorded the following information about you: Pulse Respiration Blood pressure Weight 78/minute 18/minute 126/70 88.9 kg Height 1.778 m Ryan Allen MD 01/08/2020 4:01 PM Signed This note was partially generated using [employer] voice recognition system. 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 Some anterior compartment muscle and skin over the lateral aspect of the incision had necrosis. Debridement was done on December 08 wound VAC was placed. He's had wound VAC therapy ongoing with good results at this point. There is about a 2 cm area that remains open but with very good color and no evidence of any significant necrotic tissue remaining. It still looks like it's three quarters of a centimeters deep although previously undergone up into the anterior compartment. I'm been asked him to continue with wound VAC therapy for at least another week. I'd like to see this just a little bit more shallow of the wound before we entirely quit with vacuum dressings. After that he'll probably still need some superficial wet to dry dressings but I think this will go well. We'll plan to see him again in about a month assuming no other issues arise. His got another few days of antibiotics but after that we will stop as long as he continues to make progress with wound. Referring Provider: SELF [200] Allergies As of Date: 01/08/2020 (No Known Allergies) Date Reviewed: 01/08/2020 Reviewed by: Ryan Allen - Fully Assessed Reason for Visit: Peripheral Vascular Disease (PVD) [3545] CmtGerri Hale is post op 12/09/19 I AND D Rt BKA wound with placement of wound vac Reason For Visit History Recorded Primary Visit Diagnosis:Below knee amputation (HCC) [S88.119A] Other Visit Diagnosis:PVD (peripheral vascular disease) (HCC) [I73.9] Prescriptions as of 01/08/2020 Sig: INSULIN LISPRO (U-100) 100 UN* Inject 15 Units subcutaneousl* AMOXICILLIN 875 MG-POTASSIUM * Take 1 tablet by mouth twice * POTASSIUM CHLORIDE ER 20 MEQ * Take 20 mEq by mouth twice da* METOPROLOL SUCCINATE ER 25 MG* Take 25 mg by mouth once karli* CHOLECALCIFEROL (VITAMIN D3) * Take 1,000 Units by mouth onc* ATORVASTATIN 40 MG TABLET Take 40 mg by mouth once karli* LEVOTHYROXINE 25 MCG TABLET Take 25 mcg by mouth once jyoti* LISINOPRIL 10 MG TABLET Take 10 mg by mouth once karli* METFORMIN 1,000 MG TABLET Take 1,000 mg by mouth twice * GABAPENTIN 600 MG TABLET Take 600 mg by mouth twice da* Medication notes this encounter AMOXICILLIN 875 MG-POTASSIUM CLAVULANATE 125 MG TABLET >> Kassidy Avila LPN 01/08/2020 3:35 PM >> KASSIDY AVILA LPN MonJan 08, 2020 3:35 PM Last dose 01/09/2020 Problem List As Of Date 01/08/2020 Noted Resolved Gangrene of foot (HCC) [I96] 08/21/2019 Diabetes (HCC) [E11.9] 08/21/2019 HTN (hypertension) [I10] 08/21/2019 Dyslipidemia [E78.5] 08/21/2019 Hypothyroidism [E03.9] 08/21/2019 Malnutrition of moderate degree (HCC) [E44.0] 08/22/2019 PVD (peripheral vascular disease) (HCC) [I73.9] 12/07/2019 Below knee amputation (HCC) [S88.119A] 12/07/2019 Nonhealing surgical wound [T81.89XA] 12/09/2019 Disposition: Return in about 4 weeks (around 02/05/2020). Follow-up and Disposition History Recorded Letter Text Encounter Status:Closed by RYAN ALLEN MD on 01/08/20 [facility] Beau 01-08-2020 JONAS Telephone (AGVASACC) ELIZABETH MODI ([id number]) 1940 M Date Time Provider Department 01/08/20 RYAN ALLEN During your visit today, we recorded the following information about you: Luke Pérez LPN 01/08/2020 1:18 PM Signed Millie [facility] nurse called to let us know that they are extending the home care to once a week x 5 weeks. Still currently has wound vac. Drainage and blood noted per nurse. Depth of 0.25mm. Maria Esther Gusman APRN.NAIL ARTIST, GURWINDER 01/08/2020 1:42 PM Signed Noted. Thank you, Maria Esther Gusman APRN.NAIL ARTIST Allergies As of Date: 01/08/2020 (No Known Allergies) Date Reviewed: 12/10/2019 Reviewed by: Lois (Rn) KAVIN Mccall - Fully Assessed Reason for Visit: Clinical Update [1735] Prescriptions as of 01/08/2020 Sig: GABAPENTIN 600 MG TABLET Take 600 mg by mouth twice da* INSULIN LISPRO (U-100) 100 UN* Inject 15 Units subcutaneousl* AMOXICILLIN 875 MG-POTASSIUM * Take 1 tablet by mouth twice * POTASSIUM CHLORIDE ER 20 MEQ * Take 20 mEq by mouth twice da* METOPROLOL SUCCINATE ER 25 MG* Take 25 mg by mouth once karli* CHOLECALCIFEROL (VITAMIN D3) * Take 1,000 Units by mouth onc* ATORVASTATIN 40 MG TABLET Take 40 mg by mouth once karli* LEVOTHYROXINE 25 MCG TABLET Take 25 mcg by mouth once jyoti* LISINOPRIL 10 MG TABLET Take 10 mg by mouth once karli* METFORMIN 1,000 MG TABLET Take 1,000 mg by mouth twice * Problem List As Of Date 01/08/2020 Noted Resolved Gangrene of foot (HCC) [I96] 08/21/2019 Diabetes (HCC) [E11.9] 08/21/2019 HTN (hypertension) [I10] 08/21/2019 Dyslipidemia [E78.5] 08/21/2019 Hypothyroidism [E03.9] 08/21/2019 Malnutrition of moderate degree (HCC) [E44.0] 08/22/2019 PVD (peripheral vascular disease) (HCC) [I73.9] 12/07/2019 Below knee amputation (HCC) [S88.119A] 12/07/2019 Nonhealing surgical wound [T81.89XA] 12/09/2019 Encounter Status:Closed by MARIA ESTHER GUSMAN CNP on 01/08/20 [facility] PROGRESSon 01-08-2020 PROGRESS HNO ID: [id number] Author: Ryan Allen Service: ? Author Type: Physician Type: Progress Notes Filed: 01/08/2020 4:01 PM Note Text: This note was partially generated using [employer] voice recognition system. 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 Some anterior compartment muscle and skin over the lateral aspect of the incision had necrosis. Debridement was done on December 08 wound VAC was placed. He's had wound VAC therapy ongoing with good results at this point. There is about a 2 cm area that remains open but with very good color and no evidence of any significant necrotic tissue remaining. It still looks like it's three quarters of a centimeters deep although previously undergone up into the anterior compartment. I'm been asked him to continue with wound VAC therapy for at least another week. I'd like to see this just a little bit more shallow of the wound before we entirely quit with vacuum dressings. After that he'll probably still need some superficial wet to dry dressings but I think this will go well. We'll plan to see him again in about a month assuming no other issues arise. His got another few days of antibiotics but after that we will stop as long as he continues to make progress with wound. [facility] CASE MANAGEMon 12-11-2019 CASE MANAGEM HNO ID: [id number] Author: Tami Izquierdo) KAVIN Patricio Service: Care Management Author Type: Registered Nurse Type: Care Mgt Progress Note Filed: 12/11/2019 3:28 PM Note Text: CARE MANAGEMENT DISCHARGE NOTE SERVICE DATE: 12/11/2019 SERVICE TIME: 3:27 PM LOS: 2 days Admission Date: 12/09/2019 DISCHARGE ARRANGEMENT (list agency and phone number) Discharge Arrangement: Home Long-Term Care: Nursing;OT;PT Provider Name: [facility] Phone: . CAREGIVER ASSESSMENT: Caregiver is ready, willing and able to meet the patient's needs as recommended by the inter-professional team:: Yes Does the patient have an acute stroke diagnosis, or has the patient had a stroke during this admission?: No Patient's transition needs and plan for meeting these needs: Home with [facility]. HANDOFF COMMUNICATION: TRANSPORTATION ARRANGEMENTS: Transportation Arrangements: Car ADDITIONAL CONTACT RESOURCES: Pts wound vac approved through [facility]. SIGNATURE: Tami Patricio RN PATIENT NAME: Elizabeth Modi DATE: December 11, 2019 TIME: 3:27 PM PAGER/CONTACT #: [phone] [facility] CONSULT PROGon 12-11-2019 CONSULT PROG HNO ID: [id number] Author: Adali Murry Service: Wound Care Team Author Type: Nurse Specialist Type: Consult Progress Note Filed: 12/11/2019 2:39 PM Note Text: WOUND CARE CONSULT CARDIOGRAPHER NOTE SERVICE DATE: 12/11/2019 SERVICE TIME: 1315 TIME SPENT (minutes): 45 REASON FOR CONSULT: Eval R BKA, wound vac change CHIEF COMPLAINT: c/o open wound to R lateral BKA Subjective HISTORY OF PRESENT ILLNESS: Mr. Modi is a 79 year old male who is seen today with [facility] Wound/continuous improvement manager, and presented to hospital w/ R BKA wound. Pt is s/p R BKA IANDD w/ wound vac application 12/09/19. PERTINENT REVIEW OF SYSTEMS: GENERAL: denies NVD, F/C PAIN ASSESSMENT: c/o pain to R BKA SKIN: + R BKA wound RESPIRATORY: denies SOB, cough PAST MEDICAL HISTORY Diagnosis Date - DM (diabetes mellitus) (HCC) - Dyslipidemia - HTN (hypertension) - Hypothyroidism PAST SURGICAL HISTORY Procedure Laterality Date - PAST SURGICAL HISTORY OF 09/05/2019 Revision Rt BKA Social History Tobacco Use - Smoking status: Former Smoker Types: Cigarettes - Smokeless tobacco: Never Used - Tobacco comment: STOPPED 28 YEARS AGO Substance Use Topics - Alcohol use: Yes Comment: OCCASIONAL - Drug use: Never No family history on file. MEDICATIONS: Current Facility-Administered Medications Medication Dose Route Frequency - metFORMIN 1,000 mg tab(s) (GLUCOPHAGE) 1,000 mg ORAL BID w MEALS - glimepiride 4 mg tab(s) (AMARYL) 4 mg ORAL BID w MEALS - pioglitazone 30 mg tab(s) (ACTOS) 30 mg ORAL DAILY - atorvastatin 40 mg tab(s) (LIPITOR) 40 mg ORAL AT BEDTIME - lisinopril 10 mg tab(s) (ZESTRIL, PRINIVIL) 10 mg ORAL DAILY - insulin lispro 15 Units pen (rapid acting) (HumaLOG KWIKPEN) 15 Units SUBCUTANEOUS w MEALS - levothyroxine 25 mcg tab(s) (SYNTHROID) 25 mcg ORAL DAILY (6 AM) - enoxaparin 40 mg injection (LOVENOX) 40 mg SUBCUTANEOUS DAILY - NaCl 0.9% 3-5 mL 3-5 mL INTRAVENOUS q 12 H - ondansetron 4 mg tab(s) (ZOFRAN) 4 mg ORAL q 6 H PRN Or - ondansetron (PF) 4 mg injection (ZOFRAN) 4 mg INTRAVENOUS q 6 H PRN - morphine 2 mg injection 2 mg INTRAVENOUS q 4 H PRN - oxyCODONE IR 5-10 mg tab(s) (ROXICODONE) 5-10 mg ORAL q 4 H PRN - dextrose 40 % 15 g 15 g ORAL PRN Or - glucagon 1 mg injection (GLUCAGEN) 1 mg INTRAMUSCULAR PRN Or - dextrose 50% in water 25 mL syringe 12.5 g INTRAVENOUS PRN - insulin lispro pen (rapid acting) (HumaLOG KWIKPEN) SUBCUTANEOUS w MEALS - gabapentin 600 mg cap(s) (NEURONTIN) 600 mg ORAL BID - acetaminophen 1,000 mg tab(s) (TYLENOL) 1,000 mg ORAL QID - amoxicillin-clavulanic acid 875 mg tab(s) (AUGMENTIN) 875 mg ORAL q 12 H ALLERGIES No Known Allergies Objective PHYSICAL EXAM: BP 105/62 Pulse 94 Temp 36.7 ?C (98.1 ?F) (Oral) Resp 18 Ht 177.8 cm (5' 10") Wt 88 kg (193 lb 14.4 oz) SpO2 95% BMI 27.82 kg/m? General appearance: In no apparent distress. AANDOx3 cooperative Respiratory: no respiratory distress Extremities: R BKA wound Integumentary: R lateral BKA wound. DATA Labs: wbc 9.86 WOUND ASSESSMENT: Wound Type: surgical Location: R lateral BKA Measurement: 1.5x3.5x2.1cm Wound Bed: adipose tissue, some yellow slough Exudate: small sero-sang yellow Odor: none Periwound: intact S/S of infection: none Medial BKA w/ slough covered wound. Wound Care Plan: Wound vac to R lateral BKA today- 1 piece white foam, 1 piece black foam, 150mmHg continous, change Monday. Directions for home vac- change vac 3x week, apply white foam in depth and black foam over, 150mHg continous. A photo was taken of the patient's wound(s). Photos can be found under the Get Images tab on [employer]. Photos are uploaded by the wound skin care consultant and may not be immediately available for viewing. Contact the wound and ostomy care department with questions. SIGNATURE: Adali Murry APRN.CNS PATIENT NAME: Elizabeth Modi DATE: December 11, 2019 TIME: 2:24 PM CONTACT#: [id number] Normal [facility] Glucose Meteron 12-11-2019 Glucose [Mass/Vol] 126 mg/dL High 70-99 [facility] Comment on above: Result Comment: KAVIN Briones OTIFIED Performed By: #### M AG #### [place] [address] OPERATIVE NOon 12-11-2019 OPERATIVE NO HNO ID: [id number] Author: Ryan Allen Service: ? Author Type: Physician Type: Operative Report Filed: 12/11/2019 1:51 PM Note Text: [facility] - Operative Report ELIZABETH MODI : 1940 AGE: 79. SEX: M PATIENT TYPE: I HOSP SVC: KEENAN LOCATION: [id number] ATTENDING PHYSICIAN: RYAN ALLEN CSN NUMBER: [id number] DATE OF SURGERY/PROCEDURE: 12/09/2019 INCISION/PROCEDURE START TIME: 10:54 AM INCISION CLOSE/PROCEDURE END TIME: 11:10 AM PREOPERATIVE DIAGNOSIS: Nonhealing wound, status post right below-knee amputation. POSTOPERATIVE DIAGNOSIS: Nonhealing wound, status post right below-knee amputation. SURGEON: Ryan Allen MD, FACS GALVANOMETER ASSEMBLER: 1. Sunny Brito MD. 2. Mara Godinez SA. SURGERY/PROCEDURE: Irrigation and debridement of right lower extremity wound with placement of wound VAC. ANESTHESIA: General HISTORY: This is a 79-year-old gentleman, who has undergone multiple procedures with the Vascular Service at [facility]. Ultimately, unfortunately this has terminated in a below-knee amputation. In his followup, he was seen at the [facility] office in [place] by Dr. Gordo Figueroa and it was discovered that he had some skin necrosis and/or subcutaneous infection/nonhealing. He was scheduled then be admitted for debridement and I was available to assist. DESCRIPTION OF PROCEDURE: Preoperative Huddle was performed and the patient was then taken back to the operating room where general anesthesia was induced. The right leg stump was sterilely prepped and draped with maximal barrier precaution. Prophylactic antibiotics were administered. Debridement of the basically inch diameter defect in the lateral part of the right below-knee stump was performed. We sent tissue for culture. Debridement included sharp dissection with Metzenbaums and scalpel as well as curettage. We removed what appeared to be a small amount of muscle from the anterior compartment, but in all areas were able to get down to healthy-appearing tissue. We were not immediately against the distal tibial bone or any other structure of the bony nature. We irrigated the wound with several syringes of saline and then cut a small piece of black foam for the wound VAC. This was placed into the wound and rest of the wound VAC appropriately applied in turned to suction with good function. Sponge and needle count was correct at the end of the case. Overall, he tolerated the procedure well. He was then awakened from anesthesia and taken to the recovery room in satisfactory postoperative condition. Ryan Allen MD, FACS RGN:[id number] /[id number] cc:Macho Reyes MD [facility] PLAN OF CAREon 12-11-2019 PLAN OF CARE HNO ID: [id number] Author: Olga Parekh (Hand I Blocker) Service: ? Author Type: ? Type: Plan of Care Filed: 12/11/2019 11:33 AM Note Text: CONSERVATION SPECIALIST BEDSIDE DELIVERY SURVEY 1. Patient to use [facility] Bedside Delivery - YES Insurance Information as follows: 2. Insurance card on file - YES 3. Credit card for payment - N/A Please call pharmacy bedside delivery at [phone] or [phone] if patient would like medications filled and delivered prior to discharge. Olga Parekh (Hand I Blocker) [facility] PROGRESSon 12-11-2019 PROGRESS HNO ID: [id number] Author: Rohan Duran DO Service: Vascular Surgery Author Type: Resident Type: Progress Notes Filed: 12/11/2019 8:31 AM Note Text: Attestation signed by Ryan Allen at 12/11/2019 5:20 PM Attending Note I personally saw and examined the patient. I reviewed the resident's note. I agree with the resident's assessment and plan unless otherwise noted. All appearances that he is ready for discharge. Minimal pain, wound care management although wound VAC changes could also be done in our office in follow-up. Signature: Ryan Allen MD Date: 12/11/2019 Time: 5:20 PM Vascular/Thoracic Surgery Progress Note SERVICE DATE: 12/11/2019 Vascular AND Thoracic Surgery Service Pager: For questions or concerns Mon-Fri 6a-5p please page [phone]. After 5pm and on Weekends and Holidays, please page [phone] if in ICU or [phone] if on RNF. Subjective SUBJECTIVE: NAEON. Did not sleep well over night as patient is a stomach sleeper and wasn't able to roll over. Bm this morning. No issues with diet. Pain controlled. Denies N/V/CP/SOB Diet: DIET CARBOHYDRATE CONTROLLED Objective OBJECTIVE: Vitals: Temp (24hrs), Av.8 ?C (98.3 ?F), Min:36.6 ?C (97.9 ?F), Max:37 ?C (98.6 ?F) BP 128/66 Pulse 77 Temp 36.6 ?C (97.9 ?F) (Oral) Resp 17 Ht 177.8 cm (5' 10") Wt 88.2 kg (194 lb 6.4 oz) SpO2 100% BMI 27.89 kg/m? O2 Therapy: Room Air IANDO: Date 12/10/19 07 - 12/11/19 0659 12/11/19 07 - 12/12/19 0659 Shift 6590-3836 3708-8765 9602-8633 24 Hour Total 5499-1680 0368-9173 6213-3020 24 Hour Total INTAKE Shift Total OUTPUT Urine 614 121 3111 Void (ml) 194 316 3766 Drains 0 0 Negative Pressure: Output (mL) 0 0 # of BMs Number of BMs 1 x 1 x Shift Total 159 946 8911 Weight (kg) 88.2 88.2 88.2 88.2 88.2 88.2 88.2 88.2 MEDICATIONS Current Facility-Administered Medications Medication Dose Route Frequency - acetaminophen 1,000 mg tab(s) (TYLENOL) 1,000 mg ORAL QID - amoxicillin-clavulanic acid 875 mg tab(s) (AUGMENTIN) 875 mg ORAL q 12 H - metFORMIN 1,000 mg tab(s) (GLUCOPHAGE) 1,000 mg ORAL BID w MEALS - glimepiride 4 mg tab(s) (AMARYL) 4 mg ORAL BID w MEALS - pioglitazone 30 mg tab(s) (ACTOS) 30 mg ORAL DAILY - atorvastatin 40 mg tab(s) (LIPITOR) 40 mg ORAL AT BEDTIME - lisinopril 10 mg tab(s) (ZESTRIL, PRINIVIL) 10 mg ORAL DAILY - insulin lispro 15 Units pen (rapid acting) (HumaLOG KWIKPEN) 15 Units SUBCUTANEOUS w MEALS - levothyroxine 25 mcg tab(s) (SYNTHROID) 25 mcg ORAL DAILY (6 AM) - enoxaparin 40 mg injection (LOVENOX) 40 mg SUBCUTANEOUS DAILY - NaCl 0.9% 3-5 mL 3-5 mL INTRAVENOUS q 12 H - ondansetron 4 mg tab(s) (ZOFRAN) 4 mg ORAL q 6 H PRN Or - ondansetron (PF) 4 mg injection (ZOFRAN) 4 mg INTRAVENOUS q 6 H PRN - morphine 2 mg injection 2 mg INTRAVENOUS q 4 H PRN - oxyCODONE IR 5-10 mg tab(s) (ROXICODONE) 5-10 mg ORAL q 4 H PRN - dextrose 40 % 15 g 15 g ORAL PRN Or - glucagon 1 mg injection (GLUCAGEN) 1 mg INTRAMUSCULAR PRN Or - dextrose 50% in water 25 mL syringe 12.5 g INTRAVENOUS PRN - insulin lispro pen (rapid acting) (HumaLOG KWIKPEN) SUBCUTANEOUS w MEALS - gabapentin 600 mg cap(s) (NEURONTIN) 600 mg ORAL BID Labs: Recent Labs 12/10/19 1110 NA 138 K 4.1 CHLOR 100 CO2 25 BUN 22 CREAT 1.14 GLUC 113* ANION 13 CA 9.0 WBC 9.86* HB 12.3* HCT 38.9* PLT 285 Exam: GENERAL: No distress, Alert NEURO: AANDOx3, CN II-XII grossly intact HEENT: normocephalic, atraumatic, EOMI NECK: trachea midline no JVD LUNGS: Unlabored breathing O2 Therapy: Room Air CARDIAC: Regular rate and rhythm as above ABDOMEN: Soft, non-tender, non-distended EXTREMITIES: GOLDEN, GOLDEN, No deformities, No edema. Right BKA with wound vac to lateral aspect of the stump with minimal SS drainage in cannister. Medial aspect of the stump with small area of scab SKIN: Skin color, texture, turgor normal, No rashes or lesions PSYCH: normal mood and affect ASSESSMENT AND PLAN: Active Hospital Problems Diagnosis Date Noted - Nonhealing surgical wound 12/09/2019 79 year old male s/p debridement of R BKA wound 12/08 ? -DM diet -Wound vac, monitor output -Pain and nausea control -Home medications -Lovenox -Dispo planning -Will need wound vac changes arranged -PT/OT recs pending -Hopefully home today vs. tomorrow ? Assessment and plan to be discussed with attending: Dr. Allen SIGNATURE: Rohan Duran DO PATIENT NAME: Elizabeth Modi DATE: December 11, 2019 TIME: 6:18 AM Vascular AND Thoracic Surgery Service Pager: For questions or concerns Mon-Fri 6a-5p please page [phone]. After 5pm and on Weekends and Holidays, please page [phone] if in ICU or [phone] if on RNF. Normal [facility] PT EDon 12-11-2019 PT ED HNO ID: [id number] Author: Isac Navarro (Pharmacist) Service: Pharmacy Author Type: Pharmacist Type: Patient Education Filed: 12/11/2019 4:35 PM Note Text: DISCHARGE MEDICATION REVIEW AND COUNSELING BY PHARMACY Patient Name: Elizabeth Modi Account #: Data Unavailable Admission Date: 12/09/2019 Date of Contact: December 11, 2019 Time of Contact: 4:33 PM LEARNERS Persons Present: spoke with patient's daughter (by telephone) Primary Learner: spoke with patient's daughter (by telephone) Medication list was reviewed by a Pharmacist for drug interactions or drug related problems:Yes The patient was counseled on the medication(s) listed below and was given the opportunity to ask questions regarding indication, dosage, side effects and drug interactions READINESS TO LEARN COGNITIVE ABILITY:Alert and oriented MOTIVATION TO LEARN:Eager Interested FAMILY SUPPORT:High - Very involved in pt care INSTRUCTION PROVIDED TO:Patient PATIENT LEARNS BEST BY:Individual Instruction Written Instruction - Hand-outs Verbal Instruction FACTORS AFFECTING LEARNING:None PHYSICAL LIMITATIONS AFFECTING LEARNING:None LEARNING RESPONSE PATIENT / FAMILY RESPONSE:Verbalizes understanding of: Accurate knowledge of prescribed medication prior to discharge. The correct action to take if medication dose is missed. ISAC NAVARRO, PHARMACIST December 11, 2019 4:33 PM Medication List CHANGE how you take these medications gabapentin 600 mg tablet Commonly known as: NEURONTIN What changed: Another medication with the same name was removed. Continue taking this medication, and follow the directions you see here. HumaLOG KwikPen Insulin 100 unit/mL Generic drug: insulin lispro What changed: Another medication with the same name was removed. Continue taking this medication, and follow the directions you see here. CONTINUE taking these medications amoxicillin-clavulanic acid 875-125 mg per tablet Commonly known as: AUGMENTIN atorvastatin 40 mg tablet Commonly known as: LIPITOR levothyroxine 25 mcg tablet Commonly known as: SYNTHROID lisinopril 10 mg tablet Commonly known as: ZESTRIL, PRINIVIL metFORMIN 1,000 mg tablet Commonly known as: GLUCOPHAGE metoprolol succinate ER 25 mg 24 hr tablet Commonly known as: TOPROL XL potassium chloride ER 20 mEq tablet Commonly known as: K-DUR, KLOR-CON Vitamin D 25 mcg (1,000 unit) Cap Generic drug: Cholecalciferol (Vitamin D3) Normal [facility] THERAPY NTon 12-11-2019 THERAPY NT HNO ID: [id number] Author: Maricarmen Babb/Vickie Good Service: Occupational Therapy Author Type: Occupational Therapist Type: Therapy (PT/OT/Speech/Resp) Filed: 12/11/2019 3:31 PM Note Text: Occupational Therapy Evaluation SERVICE DATE: 12/11/2019 SERVICE TIME: 1435 to 2592 ROOM: [id number] Recommended Discharge Disposition: Home OT Recommended Discharge Disposition Comments: Family assist as prior to arrival Anticipated Discharge Needs: Physical Assist at Home Physical Assist at Home for: Laundry;Cleaning;Trans portation;Meals;Safety OT Recommendations to Nursing: Edge of bed ADL?s OT 6 Clicks Score: 17 Precautions/Activity Restrictions: Fall Risk Precaution/Activity Restriction Comments: R BKA ASSESSMENT: Patient presents with nonhealing wound s/p R BKA. Requires skilled OT for addressing deficits related to self care, activity tolerance, functional transfers for increased independence with ADLs. Patient Disposition at Start of Session: Sitting on Edge of Bed;Call Singh in Reach Patient Disposition at End of Session: Call Singh in Reach(seated edge of bed) Tolerated Full Session Occupational Therapy Problem List: Impaired Self Care;Functional Mobility Impairment Patient /Caregiver Goals: Go Home;Care For Self Goals for Plan of Care: Lower Body Bathing with: Set Up Lower Body Dressing with: Set Up Toilet Hygiene with: Minimal Assistance Toilet Transfer with: Minimal Assistance(slide board transfer) Rehab Potential: Good PLAN: Treatment Frequency (times per week): 5(1-5x/week) Current admission Treatment Interventions: Education;Self Care / Home Management Plan of Care developed with: Patient TREATMENT INTERVENTIONS: Therapy Diagnosis: Reduced mobility-other;Decreas ed activities of daily living (ADL) Interventions Provided: Evaluation $ Evaluation-Moderate (77533) Billed Units: 1 unit OT Evaluation Moderate Complexity: Occupational Profile - Extended review of patient's medical record completed including patient's physical, cognitive, and psycho-social history (please see current hospital course of evaluation). Occupational Performance - Pt presents with deficits in feeding, grooming, UE bathing/dressing, LE bathing/dressing, functional transfers, functional mobility, decreased safety awareness, decreased insight into deficits Complexity in Clinical Decision Making - The extent of clinical reasoning was moderate, several treatment options present for the patient, need for modification during the evaluation was minimal/moderate, comorbidities affecting occupational performance: DM, HTN, hypothyroid. 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 Presents with non-healing along the lateral wound site. Pt s/p revision with application of wound vac on 12/09 and IANDD with wound vac 12/10. PAST MEDICAL HISTORY Diagnosis Date - DM (diabetes mellitus) (HCC) - Dyslipidemia - HTN (hypertension) - Hypothyroidism PAST SURGICAL HISTORY Procedure Laterality Date - PAST SURGICAL HISTORY OF 09/05/2019 Revision Rt BKA Reason for Occupational Therapy Consult: nonhealing wound Relevant Past Medical History: R BKA, HTN, DM, PVD Patient Report: Pt up in bed upon arrival, agreeable to OT session. IDx2. Receptive to information provided. Home Environment Patient Lives With: Family Assistance Available: 24 Hour Entry To Home: Ramp Number Of Stairs To Bed/Bath: 0 Tub/Shower Type: has been sponge bathing Equipment Owned: Wheelchair(slide board,power chair, manual chair ) Prior Functional Level: Required Assistance Assistance Required With: Transfers;Laundry;Merry satnam;Meals;Self Care;Shopping;Transpor tation Prior Functional Level Comments: Patient reports that since acute rehab, he has been staying with is daughter and her fiance. States he has been complete slide board transfers independently to his bed, chair, toilet. But requires assistance when transfering into the car. States he require significant assistance to stand from home PT. Still planning for prosthetic leg once wound heals. OBJECTIVE: Cognition/Communicatio n Deficits Responsiveness: Alert Follows Commands: 3-step Commands Attention Deficits: Distractible CURRENT FUNCTIONAL STATUS: Current Activities of Daily Living Assist Level Feeding Independent Grooming Set Up Bathing Upper Body Set Up Bathing Lower Body Moderate Assistance Dressing Upper Body Set Up Dressing Lower Body Moderate Assistance Toileting Moderate Assistance Functional Mobility Assist Level Rolling Contact Guard Assistance Supine to Sit Contact Guard Assistance Sit to Supine Contact Guard Assistance Scooting Contact Guard Assistance Sit to Stand Stand to Sit Bed to Chair Toilet/Commode Functional Mobility Balance: Static Sitting Static Sitting Balance: Good Patient able to maintain balance without handhold support, limited postural sway Range of Motion: WFL Strength: WFL Please see discipline specific clinical documentation flowsheet for complete details for this therapy evaluation/treatment. SIGNATURE: Maricarmen Good OTR/L PATIENT NAME: Elizabeth Modi DATE: December 11, 2019 TIME: 3:28 PM Normal [facility] THERAPY NT HNO ID: [id number] Author: Marilyn SantiagoPtSmitha Flores Service: Physical Therapy Author Type: Physical Therapist Type: Therapy (PT/OT/Speech/Resp) Filed: 12/11/2019 2:48 PM Note Text: Physical Therapy Evaluation SERVICE DATE: 12/11/2019 SERVICE TIME: 1341 to 1408 ROOM: [place] [address] Recommended Discharge Disposition: Home PT Recommended Discharge Disposition Comments: resume home PT services PT Recommendations to Nursing: Sit at edge of bed;Not appropriate for OOB activity at this time PT 6 Clicks Score: 15 Precautions/Activity Restrictions: Fall Risk Precaution/Activity Restriction Comments: R BKA ASSESSMENT : This patient was admitted for open and draining non-healing wound on R BKA, has the past medical history of R BKA, DM, HTN impacting current functional level, as well as the social factors complicating the discharge of none. This patient is close to his baseline functioning of being able to complete slide board transfers to power wheelchair and will benefit from continued skilled therapy in the hospital for treatment of the following body systems/impairments: musculoskeletal, integumentary, cardiopulmonary, neuromuscular (gait, transfers, bed mobility, balance, endurance, safety and strengthening). Patient Disposition at Start of Session: Supine in Bed;Call Singh in Reach Patient Disposition at End of Session: Supine in Bed;Call Singh in Reach Tolerated Full Session Physical Therapy Problem List: Pain;Safety Deficits;Decreased Activity Tolerance;Decreased Range Of Motion;Decreased Strength;Functional Mobility Impairment;Balance Impaired Patient /Caregiver Goals: Go Home Goals for Plan of Care: Rolling with: Independent Transfer supine to/from sit with: Independent Transfer sit to/from stand with: Moderate Assistance Transfer: complete slide board transfer with contact guard assistance Rehab Potential: Good PLAN: Treatment Frequency (times per week): 5(2-5) Current admission Treatment Interventions: Education;Strengthenin g;Functional Mobility Training;Balance Training;Neuromuscular Re-education Plan of Care developed with: Patient TREATMENT INTERVENTIONS: Therapy Diagnosis: Difficulty walking-musculoskeleta l Interventions Provided: Evaluation;Therapeutic Activity (91092) $ Evaluation-Moderate (29591) Billed Units: 1 unit History and examination of body systems see assessment section above. This patient?s clinical presentation is evolving. The patient required a moderate complexity evaluation. Therapeutic Activity (30550) Treatment Minutes: 11 1 unit Skilled Intervention(s): Instructed patient in supine to sit pushing with upper extremities to sit up Instructed patient in sit to supine using safe, effective technique Education with importance of continued PT services to assist with strengthening, functional mobility and balance. Educated patient on the importance of continuing exercises in order to keep both legs strong and importance of making sure R knee continues to get straight for future use of prosthesis. Cues to push down on the bed and to scoot toward the HOB in order to mimic scooting while using a slide board. Total Timed Code Treatment Minutes: 11 Total Treatment Time (minutes): 27 SUBJECTIVE: Current Hospital Course: Chart reviewed; Patient presents to the hospital due to open and draining non-healing wound on R BKA now s/p IANDD and placement of wound vac to RLE Reason for Physical Therapy Consult : eval and treat Relevant Past Medical History: R BKA, DM, HTN Patient Report: Patient without complaints Home Environment Patient Lives With: Family Assistance Available: 24 Hour Entry To Home: Ramp Number Of Stairs To Bed/Bath: 0 Tub/Shower Type: has been sponge bathing Equipment Owned: Wheelchair(slide board,power chair, manual chair ) Prior Functional Level: Required Assistance Assistance Required With: Transfers;Laundry;Merry satnam;Meals;Self Care;Shopping;Transpor tation Prior Functional Level Comments: Patient reports that since acute rehab, he has been staying with is daughter and her fiance. States he has been complete slide board transfers independently to his bed, chair, toilet. But requires assistance when transfering into the car. States he require significant assistance to stand from home PT. Still planning for prosthetic leg once wound heals. OBJECTIVE: Range of Motion: WFL Strength: Right LE Measurement Right Hip Flexion Strength: 5 Right Knee Flexion Strength: 5 Right Knee Extension Strength: 5 Right Ankle Dorsiflexion Strength: 5 CURRENT FUNCTIONAL STATUS: Current Functional Mobility Assist Level Additional Information Rolling Stand By Assistance Supine to Sit Stand By Assistance Sit to Supine Stand By Assistance Scooting Contact Guard Assistance(on flat bed toward HOB) Balance: Dynamic Sitting;Static Sitting Static Sitting Balance: Normal Patient able to maintain steady balance without handhold support Dynamic Sitting Balance: Fair Patient accepts minimal challenge, able to maintain balance while turning head/trunk JH-HLM: 3: Sit at edge of bed Please see discipline specific clinical documentation flowsheet for complete details for this therapy evaluation/treatment. SIGNATURE: Marilyn Flores PT PATIENT NAME: Elizabeth Modi DATE: December 11, 2019 TIME: 2:44 PM Normal [facility] Basic Metabolic Panelon 11-18 Anion gap [Moles/Vol] 13 mmol/L Normal 9-18 [facility] Comment on above: Performed By: #### C BC1 #### [facility] [address] [place], [place] [address] Calcium [Mass/Vol] 9.0 mg/dL Normal 8.5-10.2 [facility] Comment on above: Performed By: #### C BC1 #### [facility] [address] [place], [place] [address] Chloride [Moles/Vol] 100 mmol/L Normal 97-105 [facility] Comment on above: Performed By: #### C BC1 #### [facility] [address] [place], [place] [address] CO2 Blood 25 mmol/L Normal 22-30 [facility] Comment on above: Performed By: #### C BC1 #### [facility] [address] [place], [place] [address] Creatinine [Mass/Vol] 1.14 mg/dL Normal 0.73-1.22 [facility] Comment on above: Performed By: #### C BC1 #### [facility] [address] [place], [place] [address] Glucose [Mass/Vol] 113 mg/dL High 74-99 [facility] Comment on above: Result Comment: The [place] [employer] (ADA) provides guidance for cutoff values for fasting glucose and random glucose. The ADA defines fasting as no caloric intake for at least 8 hours.Fasting plasma glucose results between 100 to 125 mg/dL indicate increased risk for diabetes (prediabetes). Fasting plasma glucose results greater than or equal to 126 mg/dL meet the criteria for diagnosis of diabetes. In the absence of unequivocal hyperglycemia, results should be confirmed by repeat testing. In a patient with classic symptoms of hyperglycemia or hyperglycemic crisis, random plasma glucose results greater than or equal to 200 mg/dL meet the criteria for diagnosis of diabetes. Reference: Standards of Medical Care in Diabetes 2016; [place] [employer]. Diabetes Care. 2016;39(Suppl 1). Performed By: #### C BC1 #### [facility] [address] [place], [place] [address] Potassium [Moles/Vol] 4.1 mmol/L Normal 3.7-5.1 [facility] Comment on above: Performed By: #### C BC1 #### [facility] [address] [place], [place] [address] Sodium [Moles/Vol] 138 mmol/L Normal 136-144 [facility] Comment on above: Performed By: #### C BC1 #### [facility] [address] [place], [place] [address] Urea nitrogen [Mass/Vol] 22 mg/dL Normal 9-24 [facility] Comment on above: Performed By: #### C BC1 #### [facility] [address] [place], [place] [address] CASE MGT INIT ASSESon 2019 CASE MGT INIT [facility] HNO ID: [id number] Author: Tami SantiagoRn) KAVIN Patricio Service: Care Management Author Type: Registered Nurse Type: Care Mgt Initial Assessment Filed: 12/10/2019 10:48 AM Note Text: CARE MANAGEMENT: ASSESSMENT AND DISCHARGE PLAN SERVICE DATE: December 10, 2019 SERVICE TIME: 10:47 AM PRIMARY CARE PHYSICIAN: Dexter Reyes MD ADMISSION STATUS: Inpatient Needs Prior to Discharge: Home Care Order [facility] 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 Last discharge within 30 days: No Advance Directive: Current Advance Directive: Health Care Power of Bowling Pin Setters Installer In Chart: No Community Health Educator Attempted to Assist with AD Completion: No Unable to Assist Due To:: Other: See Comment(Pt has documents at home. ) Health LiteracyHow often do you need to have someone help you when you read instructions, pamphlets, or other written material from your doctor or pharmacy? : 1 - Never How confident are you filling out medical forms by yourself?: 2 - Quite a bit If Patient scores > 3 on either question, the following interventions were put into place:: Patient did not score > 3 on either question. Baseline Mental Status Prior to this Illness what was the patient's Baseline Mental Status?: Alert AND Oriented Prior to this illness, has anyone described the patient having any of the following behaviors?: Not Applicable Relationship of the informant to the patient:: Self Functional Status: Needs Assistance Does Patient Currently Receive Any Community Services or Home Care?: Home Health Care Agency([email or web address]) Equipment Prior to Admission: Wheelchair;Other: See Comment(Electric scooter and slide board) SOCIAL: Living Arrangements: Home Lives With: Daughter Financial Resources: RetiredPrimary Contact: Extended Emergency Contact Information Primary Emergency Contact: Angelic Sue Mobile Relation: Daughter Supportive Patient Contact:: Yes Social Needs Food insecurity Worry: Patient refused Inability: Patient refused Resources Needed: No Social Needs Financial resource strain: Not very hard Social Needs Transportation needs Medical: Patient refused Non-medical: Patient refused Caregiver AssessmentCaregiver is ready, willing and able to meet the patient's needs as recommended by the inter-professional team:: Yes Does the patient have an acute stroke diagnosis, or has the patient had a stroke during this admission?: No Patient's transition needs and plan for meeting these needs: Home with family and hhc. Patient's perception of need for this admission: . Medication Adherance I am convinced of the importance of my prescription medication: 0 - Agree Mostly I worry that my prescription medication will do more harm than good to me : 0 - Disagree Mostly I feel financially burdened by my pjg-ab-dtcxwy expenses for my prescription medication:: 0 - Disagree Somewhat Risk Score: 0 Patient is categorized as: Low risk < 2 Are you interested in bedside delivery of your medications? No Is Patient Psychosocially Complex?: No ASSESSMENT AND PLAN: Medical Needs: Medical Needs: Two or more chronic diseases Psychosocial Needs: Psychosocial Needs: None FREEDOM OF CHOICE EXPLAINED: Marshall of Choice Given: Yes(Pt would like to resume hhc with [facility].) POTENTIAL TRANSITION PLANS Home Care Spoke with pt at the bedside. Pt states that he has been staying with his daughter. Active with [facility]. Plan for pt to return home with [facility]. Pt will need wound vac at d/c- script placed on chart to be signed. Family to transport home when medically stable. Will follow. SIGNATURE: Tami Patricio RN PATIENT NAME: Elizabeth Modi DATE: December 10, 2019 TIME: 10:47 AM PAGER/CONTACT #: [phone] Normal [facility] Hemogramon 12-10-2019 Erythrocyte distribution width (RBC) [Ratio] 14.1 % Normal 11.6-14.4 [facility] Comment on above: Performed By: #### P 8 #### [facility] [address] [place] [address] Hematocrit (Bld) [Volume fraction] 38.9 % Low 40.1-51.0 [facility] Comment on above: Performed By: #### P 8 #### [facility] [address] [place] [address] Hemoglobin (Bld) [Mass/Vol] 12.3 g/dL Low 13.7-17.5 [facility] Comment on above: Performed By: #### P 8 #### [facility] [address] [place] [address] MCH (RBC) [Entitic mass] 27.8 pg Normal 25.7-32.2 [facility] Comment on above: Performed By: #### P 8 #### [facility] [address] [place] [address] MCHC (RBC) [Mass/Vol] 31.6 % Low 32.3-36.5 [facility] Comment on above: Performed By: #### P 8 #### [facility] [address] [place] [address] MCV (RBC) [Entitic vol] 88.0 fL Normal 83.2-95.6 [facility] Comment on above: Performed By: #### P 8 #### [facility] [address] [place] [id number] Platelet mean volume (Bld) [Entitic vol] 10.5 fL Normal 8.7-12.0 [facility] Comment on above: Performed By: #### P 8 #### [facility] [address] [place] [id number] Platelets (Bld) [#/Vol] 285 thou/cmm Normal 141-365 [facility] Comment on above: Performed By: #### P 8 #### [facility] [address] [place], [place] [address] RBC (Bld) [#/Vol] 4.42 mil/cmm Low 4.63-6.08 [facility] Comment on above: Performed By: #### P 8 #### [facility] [address] [place], [place] [address] RDW SD 45.4 fl Normal 36.1-45.8 [facility] Comment on above: Performed By: #### P 8 #### [facility] [address] [place], [place] [address] WBC (Bld) [#/Vol] 9.86 thou/cmm High 4.23-9.07 [facility] Comment on above: Performed By: #### P 8 #### [facility] [address] [place] [id number] MDRD GFRon 12-10-2019 GFR/1.73 sq M predicted among non-blacks MDRD (S/P/Bld) [Vol rate/Area] mL/min/{1.73_m2} Normal >60mL/min/1 .73m2 [facility] Comment on above: Result Comment: If t he patient is , multiply the result by 1.210. Performed By: #### M AG #### [place] [id number] PLAN OF CAREon 12-10-2019 PLAN OF CARE HNO ID: [id number] Author: Isac Navarro (Pharmacist) Service: Pharmacy Author Type: Pharmacist Type: Plan of Care Filed: 12/10/2019 2:29 PM Note Text: MEDICATION HISTORY AND MEDICATION RECONCILIATION Patient Name:Nelson Modi : 1940 Source of history:Family: Reliability of source: Appears reliable, clearly identified: Medication name, Medication dose, Medication route and Medication frequency, Pharmacy records: [facility]; [facility] Medication Nonadherence Identified: No barriers noted The above information represents the best possible medication history: Yes Reconciliation completed? Yes All FILTER TENDER JELLY medications addressed by TABITHA Additional comments: ? Spoke with patient's daughter and reviewed dispensing data of [facility] ? Patient receives all acute meds from [facility]; gets some maintenance meds from [facility] by mail ? Patient has been hospitalized for an extended period this spring, skewing refill data ? Has recently begun using Humalog--discontinued most oral hypoglycemics at that time (see below). Continues using metformin ? Augmentin-875 begun 12-04-2019. This is/was a 14-day course of therapy ? Patient is ordered to use KCl 20mEq BID but has only been using this once daily FILTER TENDER JELLY Paged [facility] ([phone]) about these findings Cjppb-ug-Hjqphakrs Medication List Adjustments: Medication Regimen Changes: Gabapentin changed from 100mg q8h to 600mg BID Humalog changed from 6u with meals to 15u with meals Medications Added: Metoprolol succinate 25mg once daily Vitamin D 1000u once daily KCl 20mEq once daily Medications Removed: Glimepiride 4mg ASA 81mg Lantus insulin Fish oil Pioglitazone 30mg Zinc SO4 Short-Term Medications: Augmentin-875 BID x 14 days (started 12-04-2019) Further Clarification Required: Patient is a 30 day readmission: No Patient Interested in Bedside Delivery: Yes Time Spent Reviewing Patient's Medications: 40 minutes Allergies: ALLERGIES No Known Allergies Preferred Pharmacy: [facility] Current FILTER TENDER JELLY Medications: Prior to Admission medications as of 12/10/19 1414 Medication Sig Last Dose Taking gabapentin (NEURONTIN) 600 mg tablet Take 600 mg by mouth twice daily. Yes insulin lispro (HUMALOG KWIKPEN INSULIN) 100 unit/mL Inject 15 Units subcutaneously three times daily before meals. Yes amoxicillin-clavulanic acid (AUGMENTIN) 875-125 mg per tablet Take 1 tablet by mouth twice daily. (14 days therapy) Yes potassium chloride ER (K-DUR, KLOR-CON) 20 mEq tablet Take 20 mEq by mouth once daily. Yes metoprolol succinate ER (TOPROL XL) 25 mg 24 hr tablet Take 25 mg by mouth once daily. Yes Cholecalciferol, Vitamin D3, (VITAMIN D) 25 mcg (1,000 unit) cap Take 1,000 Units by mouth once daily. Yes atorvastatin (LIPITOR) 40 mg tablet Take 40 mg by mouth once daily. 12/08/2019 at Unknown time Yes levothyroxine (SYNTHROID) 25 mcg tablet Take 25 mcg by mouth once daily. 12/08/2019 at Unknown time Yes lisinopril (ZESTRIL, PRINIVIL) 10 mg tablet Take 10 mg by mouth once daily. 12/08/2019 at Unknown time Yes metFORMIN (GLUCOPHAGE) 1,000 mg tablet Take 1,000 mg by mouth twice daily. 12/08/2019 at Unknown time Yes ISAC NAVARRO, PHARMACIST December 10, 2019 2:15 PM Normal [facility] PROGRESSon 12-10-2019 PROGRESS HNO ID: [id number] Author: Rohan Duran DO Service: Vascular Surgery Author Type: Resident Type: Progress Notes Filed: 12/10/2019 6:19 AM Note Text: Attestation signed by Ryan Allen at 12/10/2019 5:15 PM Attending Note I personally saw and examined the patient. I reviewed the resident's note. I agree with the resident's assessment and plan unless otherwise noted. Signature: Ryan Allen MD Date: 12/10/2019 Time: 5:15 PM Vascular/Thoracic Surgery Progress Note SERVICE DATE: 12/10/2019 Vascular AND Thoracic Surgery Service Pager: For questions or concerns Mon-Mon 6a-5p please page [phone]. After 5pm and on Weekends and Holidays, please page [phone] if in ICU or [phone] if on RNF. Subjective SUBJECTIVE: NAEON. Tolerating diet. No nausea or vomiting. Urinating without difficulty. Passing flatus with last BM prior to arrival yesterday. No significant pain at wound vac site but does continue to complain of itching. Denies N/V/CP/SOB Diet: DIET CARBOHYDRATE CONTROLLED Objective OBJECTIVE: Vitals: Temp (24hrs), Av.4 ?C (97.5 ?F), Min:36 ?C (96.8 ?F), Max:36.8 ?C (98.2 ?F) BP 114/54 Pulse 80 Temp 36.6 ?C (97.9 ?F) (Oral) Resp 18 Ht 177.8 cm (5' 10") Wt 88.2 kg (194 lb 6.4 oz) SpO2 95% BMI 27.89 kg/m? O2 Therapy: Room Air IANDO: Date 12/09/19 07 - 12/10/19 0612/10/19 07 - 12/11/19 0659 Shift 6854-2986 0876-9324 5403-0587 24 Hour Total 8725-7336 4972-5887 8966-4145 24 Hour Total INTAKE IV 400 400 OR Crystalloid intake (mL) 300 300 Volume (mL) (lactated ringers infusion) 100 100 Shift Total 400 400 OUTPUT Urine 838 160 2400 Void (ml) 437 053 6332 Shift Total 687 951 0613 Weight (kg) 88.2 88.2 88.2 88.2 88.2 88.2 88.2 88.2 MEDICATIONS Current Facility-Administered Medications Medication Dose Route Frequency - metFORMIN 1,000 mg tab(s) (GLUCOPHAGE) 1,000 mg ORAL BID w MEALS - glimepiride 4 mg tab(s) (AMARYL) 4 mg ORAL BID w MEALS - pioglitazone 30 mg tab(s) (ACTOS) 30 mg ORAL DAILY - atorvastatin 40 mg tab(s) (LIPITOR) 40 mg ORAL AT BEDTIME - lisinopril 10 mg tab(s) (ZESTRIL, PRINIVIL) 10 mg ORAL DAILY - insulin lispro 15 Units pen (rapid acting) (HumaLOG KWIKPEN) 15 Units SUBCUTANEOUS w MEALS - levothyroxine 25 mcg tab(s) (SYNTHROID) 25 mcg ORAL DAILY (6 AM) - enoxaparin 40 mg injection (LOVENOX) 40 mg SUBCUTANEOUS DAILY - NaCl 0.9% 3-5 mL 3-5 mL INTRAVENOUS q 12 H - ondansetron 4 mg tab(s) (ZOFRAN) 4 mg ORAL q 6 H PRN Or - ondansetron (PF) 4 mg injection (ZOFRAN) 4 mg INTRAVENOUS q 6 H PRN - acetaminophen 1,000 mg tab(s) (TYLENOL) 1,000 mg ORAL q 6 H - morphine 2 mg injection 2 mg INTRAVENOUS q 4 H PRN - oxyCODONE IR 5-10 mg tab(s) (ROXICODONE) 5-10 mg ORAL q 4 H PRN - dextrose 40 % 15 g 15 g ORAL PRN Or - glucagon 1 mg injection (GLUCAGEN) 1 mg INTRAMUSCULAR PRN Or - dextrose 50% in water 25 mL syringe 12.5 g INTRAVENOUS PRN - insulin lispro pen (rapid acting) (HumaLOG KWIKPEN) SUBCUTANEOUS w MEALS - ceFAZolin iv piggyback 2 g in D5W (iso-osmotic) 100 mL (ANCEF) 2 g INTRAVENOUS q 8 HR - gabapentin 600 mg cap(s) (NEURONTIN) 600 mg ORAL BID Labs: No results for input(s): NA, K, CHLOR, CO2, BUN, CREAT, GLUC, ANION, CA, MG, P, ALB, AST, ALT, ALKPHOS, TBILI, DBILI, PHOSINTL, WBC, HB, HCT, PLT, LACT, INR, PH, PCO2, PO2, BE, HCO3 in the last 72 hours. Invalid input(s): LISDBC Exam: GENERAL: No distress, Alert NEURO: AANDOx3, CN II-XII grossly intact HEENT: normocephalic, atraumatic, EOMI NECK: trachea midline no JVD LUNGS: Unlabored breathing O2 Therapy: Room Air CARDIAC: Regular rate and rhythm as above ABDOMEN: Soft, non-tender, non-distended EXTREMITIES: GOLDEN, No deformities, No edema. Right BKA with wound vac to lateral aspect of the stump with minimal SS drainage in cannister. Medial aspect of the stump with small area of scab SKIN: Skin color, texture, turgor normal, No rashes or lesions PSYCH: normal mood and affect ASSESSMENT AND PLAN: Active Hospital Problems Diagnosis Date Noted - Nonhealing surgical wound 12/09/2019 79 year old male s/p debridement of R BKA wound 12/08 -DM diet -Wound vac, monitor output -Pain and nausea control -Home medications -Lovenox -Dispo planning -Will need wound vac changes arranged. Care management consulted Assessment and plan to be discussed with attending: Dr. Allen SIGNATURE: Rohan Duran DO PATIENT NAME: Elizabeth Modi DATE: December 10, 2019 TIME: 6:07 AM Vascular AND Thoracic Surgery Service Pager: For questions or concerns Mon-Mon 6a-5p please page [phone]. After 5pm and on Weekends and Holidays, please page [phone] if in ICU or [phone] if on RNF. [facility] ANES [place] 12-09-2019 ANES POST HNO ID: [id number] Author: Sal Ochoa Service: Anesthesiology Author Type: Physician Type: Anesthesia PostOp Filed: 12/09/2019 11:41 AM Note Text: POST ANESTHESIA EVALUATION NOTE SERVICE DATE: 12/09/2019 SERVICE TIME: 11:41 AM : 1940 Vitals: 12/09/19 0917 12/09/19 1125 Temp: 36.2 ?C (97.2 ?F) 36 ?C (96.8 ?F) 12/09/19 0917 12/09/19 1117 12/09/19 1130 BP: 162/71 172/74 172/82 12/09/19 0917 12/09/19 1125 12/09/19 1130 Pulse: 76 76 72 12/09/19 0917 12/09/19 1125 12/09/19 1130 Resp: 16 15 13 12/09/19 0917 12/09/19 1125 12/09/19 1130 SpO2: 97% 100% 100% Validated Vital Signs: yes No significant anesthesia events. POST ANES STATUS: Stable. Discharge when criteria are met. No further anesthesia follow up required Other Remarks: SIGNATURE: Sal Ochoa MD PATIENT NAME: Elizabeth Modi DATE: December 09, 2019 TIME: 11:41 AM PAGER/CONTACT #: [facility] ANES PREOPon 12-09-2019 ANES PREOP HNO ID: [id number] Author: Sal Ochoa Service: Anesthesiology Author Type: Physician Type: Anesthesia PreOp Filed: 12/09/2019 9:11 AM Note Text: ANESTHESIOLOGY DAY OF SURGERY NOTE SERVICE DATE: 12/09/2019 SERVICE TIME: 9:05 AM : 1940 Procedure(s) (LRB): DEBRIDEMENT RIGHT BELOW THE KNEE AMPUTATION (Right) APPLICATION WOUND VAC EXTREMITY LOWER TOTAL WOUND SURFACE GREATER THAN 50 SQ CENTIMETERS (Right) Surgeon(s): Ryan Allen Estimated body mass index is 26.69 kg/m? as calculated from the following: Height as of 12/06/19: 177.8 cm (5' 10"). Weight as of 12/06/19: 84.4 kg (186 lb). Most recent hematocrit and potassium results: Hematocrit 27.5 09/09/2019 Potassium 4.0 09/09/2019 ANES DOS/PREOP NOTE: Vitals: There were no vitals filed for this visit. ACTIVE PROBLEM LIST Gangrene of Foot (Hcc) Diabetes (Hcc) Htn (Hypertension) Dyslipidemia Hypothyroidism Malnutrition of Moderate Degree (Hcc) Pvd (Peripheral Vascular Disease) (Hcc) Below Knee Amputation (Hcc) Nonhealing Surgical Wound PAST MEDICAL HISTORY Diagnosis Date - DM (diabetes mellitus) (HCC) - Dyslipidemia - HTN (hypertension) - Hypothyroidism PAST SURGICAL HISTORY Procedure Laterality Date - PAST SURGICAL HISTORY OF 09/05/2019 Revision Rt BKA No family history on file. Social History: Social History Tobacco Use - Smoking status: Former Smoker Types: Cigarettes - Smokeless tobacco: Never Used - Tobacco comment: STOPPED 28 YEARS AGO Substance Use Topics - Alcohol use: Yes Comment: OCCASIONAL - Drug use: Never No current facility-administered medications on file prior to encounter. Current Outpatient Medications on File Prior to Encounter Medication Sig - xgocy-1d-wcu-epa-fish oil-D3 667-250 mg-unit cap Take 1 tablet by mouth once daily. - zinc sulfate (ORAZINC ORAL) Take 1 capsule by mouth once daily. - aspirin 81 mg chewable tablet Take 1 tablet by mouth once daily. (Patient not taking: Reported on 12/06/2019 ) - gabapentin (NEURONTIN) 100 mg capsule Take 1 capsule by mouth every 8 hours for 30 days. - insulin glargine (LANTUS SOLOSTAR, BASAGLAR KWIKPEN) 100 unit/mL (3 mL) Inject 10 Units subcutaneously daily at bedtime. - insulin lispro (HUMALOG KWIKPEN) 100 unit/mL Inject 6 Units subcutaneously w MEALS. - atorvastatin (LIPITOR) 40 mg tablet Take 40 mg by mouth once daily. - levothyroxine (SYNTHROID) 25 mcg tablet Take 25 mcg by mouth once daily. - lisinopril (ZESTRIL, PRINIVIL) 10 mg tablet Take 10 mg by mouth once daily. - pioglitazone (ACTOS) 30 mg tablet Take 30 mg by mouth once daily. - metFORMIN (GLUCOPHAGE) 1,000 mg tablet Take 1,000 mg by mouth twice daily. - glimepiride (AMARYL) 4 mg tablet Take 4 mg by mouth twice daily. Current Facility-Administered Medications Medication Dose Route Frequency Provider Last Rate Last Dose - lidocaine 10 mg/mL (1 %) 1-2 mg injection (XYLOCAINE) 0.1-0.2 mL INTRADERMAL PRN Ryan Allen - lactated ringers infusion 5-30 mL/hr INTRAVENOUS CONTINUOUS Ryan Allen - ceFAZolin iv piggyback 2 g in D5W (iso-osmotic) 100 mL (ANCEF) 2 g INTRAVENOUS Pre-Op Once Ryan Allen Allergies: ALLERGIES No Known Allergies DOS EXAM: Adequate NPO status: Yes Anesthetic risks, benefits, alternatives, personnel and consent discussed: Yes Patient agrees to proceed: Yes Previous Anesthesia: No history of adverse event. Airway Assessment: MP 2; Neck ROM: Full ROM without neurologic symptoms; Airway Evaluation: No significant abnormalities Symptoms of Sleep Apnea: None Dentition: Teeth intact Additional Physical Exam: Lungs: Patient health status unchanged since recent history and physical. See history and physical for exam findings. Cardiac: Patient health status unchanged since recent history and physical. See history and physical for exam findings. Additional Pertinent Findings: N/A Blood Products: Not anticipated for this procedure. Anesthetic Plan: General, Standard ASA Monitors and Standard ASA Monitors Pain Management Plan: Parenteral or Oral and per Surgical Service ASA Class: 3 Other Medical Problems: None Chronic Beta Nicole medication administered within 24 hours: N/A I have interviewed and examined the patient. I have reviewed the medical record and/or the pre-anesthesia evaluation, pertinent labs, and test results. Significant changes in the patient's condition since the History and Physical, not otherwise documented in primary service progress notes: No This contains updated information obtained within 48 hours of Surgery/Procedure. SIGNATURE: Sal Ochoa MD PATIENT NAME: Elizabeth Modi DATE: December 09, 2019 TIME: 9:05 AM CSN: [id number] [facility] BRIEF OP NOTon 12-09-2019 BRIEF OP NOT HNO ID: [id number] Author: Sunny Brito Service: Vascular Surgery Author Type: Resident Type: Brief Op Note Filed: 12/09/2019 11:46 AM Note Text: Attestation signed by Ryan Allen at 12/10/2019 5:18 PM I personally saw and examined the patient on 12/09/19. I was present throughout the surgical procedure and either performed or directed the resident during the entire procedure. I reviewed the resident's note. I agree with the resident's assessment and plan unless otherwise noted. BRIEF OPERATIVE / PROCEDURE NOTE LOG ID: [id number] SURGERY/PROCEDURE DATE: 12/09/2019 INCISION/PROCEDURE START TIME: 10:54 AM INCISION CLOSE/PROCEDURE END TIME: 11:10 AM SURGEON(S)/PROCEDURALI ST(S) AND GALVANOMETER ASSEMBLER(S): Surgeon(s) and Role: * Ryan Allen - Primary * Sunny Brito - Resident - Assisting Distribution Collection Operator: Mara Godinez SA SURGERY/PROCEDURE(S): irrigation and debridement right lower extremity wound, placement of wound vac ANESTHESIA: General FINDINGS: draining right lower extremity wound ESTIMATED BLOOD LOSS: 2 mls SPECIMENS: debrided tissue COMPLICATIONS: None PRE-OP/PRE-PROCEDURE DIAGNOSIS: right lower extremity wound POST-OP/POST-PROCEDURE DIAGNOSIS: Same as Preop SIGNATURE: Sunny Brito MD PATIENT NAME: Elizabeth Modi DATE: December 09, 2019 TIME: 11:45 AM PAGER/CONTACT #: [facility] Cult and Smr CAROLINE and AERon 0 12-09-2019 Cult and Smr CAROLINE and AER Test performed at [facility] Moderate Mixed skin javier. No anaerobic organisms cultured Few Gram positive cocci Few Polymorphonuclear leukocytes Normal [facility] Comment on above: Performed By: #### P 8 #### [facility] [address] [place], [place] [address] HISTORY PHYSICALon 0 HISTORY PHYSICAL HNO ID: [id number] Author: Sunny (Cassia Brito Service: Vascular Surgery Author Type: Resident Type: HANDP Filed: 12/09/2019 10:17 AM Note Text: HISTORY AND PHYSICAL EXAMINATION SERVICE DATE: 12/09/2019 SERVICE TIME: 10:14 AM PRIMARY CARE PHYSICIAN: Dexter Reyes MD Subjective CHIEF COMPLAINT: R BKA wound Mr. Modi was seen by Dr. Figueroa on 12/06/2019, visit summarized here: Elizabeth Modi is a 79 year old male here for follow-up below-knee amputation on the right. ? HPI: Tana was seen originally by Dr. Parmar had a femoral endarterectomy performed in August in an attempt to save below-knee amputation on the right. This was performed by Dr. Allen later that month. At this point in time the patient has good healing of the pad of the amputation stump and it is pink and warm the medial aspect of the incision seems to be healing slowly but well without evidence of any significant problems. The lateral aspect however is open and draining and appears to have evidence of some nonhealing and infection. I explained that he and his family I feel the best thing here is to go ahead and bring him up and explore this in the operating room clean it up and potentially place a wound VAC to try to get this to heal. FUNCTIONAL STATUS: Independent PAST MEDICAL HISTORY Diagnosis Date - DM (diabetes mellitus) (HCC) - Dyslipidemia - HTN (hypertension) - Hypothyroidism PAST SURGICAL HISTORY Procedure Laterality Date - PAST SURGICAL HISTORY OF 09/05/2019 Revision Rt BKA No family history on file. Social History Tobacco Use - Smoking status: Former Smoker Types: Cigarettes - Smokeless tobacco: Never Used - Tobacco comment: STOPPED 28 YEARS AGO Substance Use Topics - Alcohol use: Yes Comment: OCCASIONAL - Drug use: Never gabapentin (NEURONTIN) 100 mg capsule, Take 1 capsule by mouth every 8 hours for 30 days., Disp: 90 capsule, Rfl: 0, 12/08/2019 at Unknown time insulin lispro (HUMALOG KWIKPEN) 100 unit/mL, Inject 6 Units subcutaneously w MEALS., Disp: 5.4 mL, Rfl: 0, 12/09/2019 at 0700 atorvastatin (LIPITOR) 40 mg tablet, Take 40 mg by mouth once daily., Disp: , Rfl: , 12/08/2019 at Unknown time levothyroxine (SYNTHROID) 25 mcg tablet, Take 25 mcg by mouth once daily., Disp: , Rfl: , 12/08/2019 at Unknown time lisinopril (ZESTRIL, PRINIVIL) 10 mg tablet, Take 10 mg by mouth once daily., Disp: , Rfl: , 12/08/2019 at Unknown time metFORMIN (GLUCOPHAGE) 1,000 mg tablet, Take 1,000 mg by mouth twice daily., Disp: , Rfl: , 12/08/2019 at Unknown time glimepiride (AMARYL) 4 mg tablet, Take 4 mg by mouth twice daily., Disp: , Rfl: , 12/08/2019 at Unknown time [id number]-5t-lji-epa-fish oil-D3 667-250 mg-unit cap, Take 1 tablet by mouth once daily., Disp: , Rfl: zinc sulfate (ORAZINC ORAL), Take 1 capsule by mouth once daily., Disp: , Rfl: aspirin 81 mg chewable tablet, Take 1 tablet by mouth once daily. (Patient not taking: Reported on 12/06/2019 ), Disp: 90 tablet, Rfl: 0 insulin glargine (LANTUS SOLOSTAR, BASAGLAR KWIKPEN) 100 unit/mL (3 mL), Inject 10 Units subcutaneously daily at bedtime., Disp: 1 Pen, Rfl: 0 pioglitazone (ACTOS) 30 mg tablet, Take 30 mg by mouth once daily., Disp: , Rfl: ALLERGIES No Known Allergies COMPLETE REVIEW OF SYSTEMS: as above Objective PHYSICAL EXAM: Physical Exam Performed: GENERAL: Alert, no distress, cooperative LUNGS: Lungs clear to auscultation, Good diaphragmatic excursion CARDIAC: Normal S1 and S2; no rubs, murmurs, or gallops ABDOMEN: Abdomen soft, non-tender, BS normal, No masses or organomegaly EXTREMITIES: R BKA, lateral aspect of incision pen, draining, erythematous BP 162/71 Pulse 76 Temp (Src) 97.2 (Temporal) Resp 16 SpO2 97% O2 Therapy: Room Air DATA: Diagnostic tests reviewed for today's visit: Most recent labs and imaging results. Assessment/Plan Active Problems: 79 year old male R BKA wound infection - OR today for debridement SIGNATURE: Sunny Brito MD PATIENT NAME: Elizabeth Modi DATE: December 09, 2019 TIME: 10:14 AM PAGER/CONTACT #: [phone] [facility] NURSING PROGon 12-09-2019 NURSING PROG HNO ID: [id number] Author: Dakota (Rn) KAVIN Rodriguez Service: ? Author Type: Registered Nurse Type: Nursing Progress Note Filed: 12/09/2019 12:59 PM Note Text: FBG done by Belkis VALE [facility] PROGRESSon 12-07-2019 PROGRESS HNO ID: [id number] Author: Gordo Figueroa Service: ? Author Type: Physician Type: Progress Notes Filed: 12/07/2019 10:39 AM Note Text: Elizabeth Modi is a 79 year old male here for follow-up below-knee amputation on the right. HPI: Tana was seen originally by Dr. Parmar had a femoral endarterectomy performed in August in an attempt to save below-knee amputation on the right. This was performed by Dr. Allen later that month. At this point in time the patient has good healing of the pad of the amputation stump and it is pink and warm the medial aspect of the incision seems to be healing slowly but well without evidence of any significant problems. The lateral aspect however is open and draining and appears to have evidence of some nonhealing and infection. I explained that he and his family I feel the best thing here is to go ahead and bring him up and explore this in the operating room clean it up and potentially place a wound VAC to try to get this to heal. MEDICATIONS: Current Outpatient Medications Medication Sig Dispense Refill - hkzjz-6d-vex-epa-fish oil-D3 667-250 mg-unit cap Take 1 tablet by mouth once daily. - zinc sulfate (ORAZINC ORAL) Take 1 capsule by mouth once daily. - gabapentin (NEURONTIN) 100 mg capsule Take 1 capsule by mouth every 8 hours for 30 days. 90 capsule 0 - insulin lispro (HUMALOG KWIKPEN) 100 unit/mL Inject 6 Units subcutaneously w MEALS. 5.4 mL 0 - atorvastatin (LIPITOR) 40 mg tablet Take 40 mg by mouth once daily. - levothyroxine (SYNTHROID) 25 mcg tablet Take 25 mcg by mouth once daily. - lisinopril (ZESTRIL, PRINIVIL) 10 mg tablet Take 10 mg by mouth once daily. - pioglitazone (ACTOS) 30 mg tablet Take 30 mg by mouth once daily. - metFORMIN (GLUCOPHAGE) 1,000 mg tablet Take 1,000 mg by mouth twice daily. - aspirin 81 mg chewable tablet Take 1 tablet by mouth once daily. (Patient not taking: Reported on 12/06/2019 ) 90 tablet 0 - insulin glargine (LANTUS SOLOSTAR, BASAGLAR KWIKPEN) 100 unit/mL (3 mL) Inject 10 Units subcutaneously daily at bedtime. 1 Pen 0 - glimepiride (AMARYL) 4 mg tablet Take 4 mg by mouth twice daily. No current facility-administered medications for this visit. ALLERGIES No Known Allergies BP 128/70 Pulse 80 Resp 16 Ht 5' 10" (1.78m) Wt 186 lb (84.4kg) BMI 26.69 kg/(m2). PHYSICAL EXAM: Well-developed well-nourished white male alert and person place and time in no acute distress time examination. He is not using any accessory muscles of respiration and his heart rate is regular today. Abdomen appears flat and soft. His lower extremity on the right shows drainage from a lateral wound of the below-knee amputation while the medial aspect of this appears to be healing relatively well. His left foot is showing evidence of small gangrenous changes of the toe that he states are healing slowly. 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 PLAN: Patient is to come up to the hospital next Monday for debridement and placement of wound VAC. FOLLOW UP: Patient will follow up with us next Monday at the [facility] facility. [facility] Visit (AGM[facility]) ELIZABETH MODI ([id number]) 1940 M Date Time Provider Department 12/06/19 11:30 AM GORDO FIGUEROA During your visit today, we recorded the following information about you: Pulse Respiration Blood pressure Weight 80/minute 16/minute 128/70 84.4 kg Height 1.778 m Gordo Figueroa MD 12/07/2019 10:39 AM Signed Elizabeth Modi is a 79 year old male here for follow-up below-knee amputation on the right. HPI: Tana was seen originally by Dr. Parmar had a femoral endarterectomy performed in August in an attempt to save below-knee amputation on the right. This was performed by Dr. Allen later that month. At this point in time the patient has good healing of the pad of the amputation stump and it is pink and warm the medial aspect of the incision seems to be healing slowly but well without evidence of any significant problems. The lateral aspect however is open and draining and appears to have evidence of some nonhealing and infection. I explained that he and his family I feel the best thing here is to go ahead and bring him up and explore this in the operating room clean it up and potentially place a wound VAC to try to get this to heal. MEDICATIONS: Current Outpatient Medications Medication Sig Dispense Refill - wnewo-9x-jax-epa-fish oil-D3 667-250 mg-unit cap Take 1 tablet by mouth once daily. - zinc sulfate (ORAZINC ORAL) Take 1 capsule by mouth once daily. - gabapentin (NEURONTIN) 100 mg capsule Take 1 capsule by mouth every 8 hours for 30 days. 90 capsule 0 - insulin lispro (HUMALOG KWIKPEN) 100 unit/mL Inject 6 Units subcutaneously w MEALS. 5.4 mL 0 - atorvastatin (LIPITOR) 40 mg tablet Take 40 mg by mouth once daily. - levothyroxine (SYNTHROID) 25 mcg tablet Take 25 mcg by mouth once daily. - lisinopril (ZESTRIL, PRINIVIL) 10 mg tablet Take 10 mg by mouth once daily. - pioglitazone (ACTOS) 30 mg tablet Take 30 mg by mouth once daily. - metFORMIN (GLUCOPHAGE) 1,000 mg tablet Take 1,000 mg by mouth twice daily. - aspirin 81 mg chewable tablet Take 1 tablet by mouth once daily. (Patient not taking: Reported on 12/06/2019 ) 90 tablet 0 - insulin glargine (LANTUS SOLOSTAR, BASAGLAR KWIKPEN) 100 unit/mL (3 mL) Inject 10 Units subcutaneously daily at bedtime. 1 Pen 0 - glimepiride (AMARYL) 4 mg tablet Take 4 mg by mouth twice daily. No current facility-administered medications for this visit. ALLERGIES No Known Allergies BP 128/70 Pulse 80 Resp 16 Ht 5' 10" (1.78m) Wt 186 lb (84.4kg) BMI 26.69 kg/(m2). PHYSICAL EXAM: Well-developed well-nourished white male alert and person place and time in no acute distress time examination. He is not using any accessory muscles of respiration and his heart rate is regular today. Abdomen appears flat and soft. His lower extremity on the right shows drainage from a lateral wound of the below-knee amputation while the medial aspect of this appears to be healing relatively well. His left foot is showing evidence of small gangrenous changes of the toe that he states are healing slowly. 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 PLAN: Patient is to come up to the hospital next Monday for debridement and placement of wound VAC. FOLLOW UP: Patient will follow up with us next Monday at the [facility] facility. Gordo Figueroa MD Referring Provider: SELF [[id number]] Allergies As of Date: 12/06/2019 (No Known Allergies) Date Reviewed: 12/06/2019 Reviewed by: Ryan Allen - Fully Assessed Reason for Visit: Peripheral Vascular Disease (PVD) [3545] Cmt: Elizabeth is post op 09/05/19 Revision Rt BKA Primary Visit Diagnosis:PVD (peripheral vascular disease) ([facility]) [I73.9] Other Visit Diagnosis:Below knee amputation ([facility]) [S88.119A] Prescriptions as of 12/06/2019 Sig: OMEGA-3S 667 CE-VIG-PHW-FISH * Take 1 tablet by mouth once d* ORAZINC ORAL Take 1 capsule by mouth once * GABAPENTIN 100 MG CAPSULE Take 1 capsule by mouth every* INSULIN LISPRO (U-100) 100 UN* Inject 6 Units subcutaneously* ATORVASTATIN 40 MG TABLET Take 40 mg by mouth once karli* LEVOTHYROXINE 25 MCG TABLET Take 25 mcg by mouth once jyoti* LISINOPRIL 10 MG TABLET Take 10 mg by mouth once karli* PIOGLITAZONE 30 MG TABLET Take 30 mg by mouth once karli* METFORMIN 1,000 MG TABLET Take 1,000 mg by mouth twice * ASPIRIN 81 MG CHEWABLE TABLET Take 1 tablet by mouth once d* Patient not taking: Reported on 12/06/2019 INSULIN GLARGINE (U-100) 100 * Inject 10 Units subcutaneousl* GLIMEPIRIDE 4 MG TABLET Take 4 mg by mouth twice karli* Medication notes this encounter INSULIN GLARGINE (U-100) 100 UNIT/ML (3 ML) SUBCUTANEOUS PEN >> Kassidy Avila LPN 12/06/2019 11:34 AM >> KASSIDY AVILA LPN MonDec 06, 2019 11:34 AM Not taking Problem List As Of Date 12/06/2019 Noted Resolved Gangrene of foot (HCC) [I96] 08/21/2019 Diabetes (HCC) [E11.9] 08/21/2019 HTN (hypertension) [I10] 08/21/2019 Dyslipidemia [E78.5] 08/21/2019 Hypothyroidism [E03.9] 08/21/2019 Malnutrition of moderate degree (HCC) [E44.0] 08/22/2019 Disposition: Return for Status post below-knee amputation, PVD. Follow-up and Disposition History Recorded Encounter Status:Closed by [facility]ORD[facility]OA [facility] ([facility]) ELIZABETH MODI ([id number]) 1940 M Date Time Provider Department 12/06/19 RYAN ALLEN During your visit today, we recorded the following information about you: Allergies As of Date: 12/06/2019 (No Known Allergies) Date Reviewed: 12/06/2019 Reviewed by: Gordo Figueroa - Fully Assessed Reason for Visit: Schedule Surgery [1330] Primary Visit Diagnosis:PVD (peripheral vascular disease) (HCC) [I73.9] Order(s):SURGICAL REQUEST - ELECTIVE [0521116] Order #: [id number]: 1 HANDP FOR SURGERY [G5705DTN] Order #: [id number] PRE-PROCEDURE AND PRE-OPERATIVE COVID [SQPOCOVD] Order #: [id number] FUTURE CBC [SQCBC] Order #: [id number] FUTURE BASIC METABOLIC PNL [SQBMP] Order #: [id number] FUTURE PROTHROMBIN TIME/PT [SQPT] Order #: [id number] FUTURE Prescriptions as of 12/06/2019 Sig: OMEGA-3S 667 AB-BJA-YVA-FISH * Take 1 tablet by mouth once d* ORAZINC ORAL Take 1 capsule by mouth once * ASPIRIN 81 MG CHEWABLE TABLET Take 1 tablet by mouth once d* Patient not taking: Reported on 12/06/2019 GABAPENTIN 100 MG CAPSULE Take 1 capsule by mouth every* INSULIN GLARGINE (U-100) 100 * Inject 10 Units subcutaneousl* INSULIN LISPRO (U-100) 100 UN* Inject 6 Units subcutaneously* ATORVASTATIN 40 MG TABLET Take 40 mg by mouth once karli* LEVOTHYROXINE 25 MCG TABLET Take 25 mcg by mouth once jyoti* LISINOPRIL 10 MG TABLET Take 10 mg by mouth once karli* PIOGLITAZONE 30 MG TABLET Take 30 mg by mouth once karli* METFORMIN 1,000 MG TABLET Take 1,000 mg by mouth twice * GLIMEPIRIDE 4 MG TABLET Take 4 mg by mouth twice karli* Problem List As Of Date 12/06/2019 Noted Resolved Gangrene of foot (HCC) [I96] 08/21/2019 Diabetes (HCC) [E11.9] 08/21/2019 HTN (hypertension) [I10] 08/21/2019 Dyslipidemia [E78.5] 08/21/2019 Hypothyroidism [E03.9] 08/21/2019 Malnutrition of moderate degree (HCC) [E44.0] 08/22/2019 Encounter Status:Closed by RYAN ALLEN MD on 12/06/19 [facility] HOSPon 12-06-2019 HOSP Patient:Elizabeth Modi MRN: Height:5' 10"(1.778 m) Weight:186 lb (84.369 kg) Outpatient Medications as of 12/09/19: fnifp-5e-twu-epa-fish oil-D3 667-250 mg-unit cap zinc sulfate (ORAZINC ORAL) aspirin 81 mg chewable tablet gabapentin (NEURONTIN) 100 mg capsule insulin glargine (LANTUS SOLOSTAR, BASAGLAR KWIKPEN) 100 unit/mL (3 mL) insulin lispro (HUMALOG KWIKPEN) 100 unit/mL atorvastatin (LIPITOR) 40 mg tablet levothyroxine (SYNTHROID) 25 mcg tablet lisinopril (ZESTRIL, PRINIVIL) 10 mg tablet pioglitazone (ACTOS) 30 mg tablet metFORMIN (GLUCOPHAGE) 1,000 mg tablet glimepiride (AMARYL) 4 mg tablet Admission/Clinic Administered Medications as of 12/09/19: lidocaine 10 mg/mL (1 %) 1-2 mg injection (XYLOCAINE) lactated ringers infusion ceFAZolin iv piggyback 2 g in D5W (iso-osmotic) 100 mL (ANCEF) Problem List: Gangrene of foot (HCC) [I96] Diabetes (HCC) [E11.9] HTN (hypertension) [I10] Dyslipidemia [E78.5] Hypothyroidism [E03.9] Malnutrition of moderate degree (HCC) [E44.0] PVD (peripheral vascular disease) (HCC) [I73.9] Below knee amputation (HCC) [S88.119A] Nonhealing surgical wound [T81.89XA] Allergies: No Known Allergies Date Verified:12/09/19 Lab Values No results within the last 30 days for the following basenames: K,HCT Progress Notes ([facility]): Gordo Figueroa MD 12/07/2019 10:39 AM Signed Elizabeth Modi is a 79 year old male here for follow-up below-knee amputation on the right. HPI: Tana was seen originally by Dr. Parmar had a femoral endarterectomy performed in August in an attempt to save below-knee amputation on the right. This was performed by Dr. Allen later that month. At this point in time the patient has good healing of the pad of the amputation stump and it is pink and warm the medial aspect of the incision seems to be healing slowly but well without evidence of any significant problems. The lateral aspect however is open and draining and appears to have evidence of some nonhealing and infection. I explained that he and his family I feel the best thing here is to go ahead and bring him up and explore this in the operating room clean it up and potentially place a wound VAC to try to get this to heal. MEDICATIONS: Current Outpatient Medications Medication Sig Dispense Refill - oupyp-3o-rhi-epa-fish oil-D3 667-250 mg-unit cap Take 1 tablet by mouth once daily. - zinc sulfate (ORAZINC ORAL) Take 1 capsule by mouth once daily. - gabapentin (NEURONTIN) 100 mg capsule Take 1 capsule by mouth every 8 hours for 30 days. 90 capsule 0 - insulin lispro (HUMALOG KWIKPEN) 100 unit/mL Inject 6 Units subcutaneously w MEALS. 5.4 mL 0 - atorvastatin (LIPITOR) 40 mg tablet Take 40 mg by mouth once daily. - levothyroxine (SYNTHROID) 25 mcg tablet Take 25 mcg by mouth once daily. - lisinopril (ZESTRIL, PRINIVIL) 10 mg tablet Take 10 mg by mouth once daily. - pioglitazone (ACTOS) 30 mg tablet Take 30 mg by mouth once daily. - metFORMIN (GLUCOPHAGE) 1,000 mg tablet Take 1,000 mg by mouth twice daily. - aspirin 81 mg chewable tablet Take 1 tablet by mouth once daily. (Patient not taking: Reported on 12/06/2019 ) 90 tablet 0 - insulin glargine (LANTUS SOLOSTAR, BASAGLAR KWIKPEN) 100 unit/mL (3 mL) Inject 10 Units subcutaneously daily at bedtime. 1 Pen 0 - glimepiride (AMARYL) 4 mg tablet Take 4 mg by mouth twice daily. No current facility-administered medications for this visit. ALLERGIES No Known Allergies BP 128/70 Pulse 80 Resp 16 Ht 5' 10" (1.78m) Wt 186 lb (84.4kg) BMI 26.69 kg/(m2). PHYSICAL EXAM: Well-developed well-nourished white male alert and person place and time in no acute distress time examination. He is not using any accessory muscles of respiration and his heart rate is regular today. Abdomen appears flat and soft. His lower extremity on the right shows drainage from a lateral wound of the below-knee amputation while the medial aspect of this appears to be healing relatively well. His left foot is showing evidence of small gangrenous changes of the toe that he states are healing slowly. 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 PLAN: Patient is to come up to the hospital next Monday for debridement and placement of wound VAC. FOLLOW UP: Patient will follow up with us next Monday at the [facility]. Gordo Figueroa MD [facility] CASE MANAGEMon 09-11-2019 CASE MANAGEM HNO ID: [id number] Author: Tiffanie (Rn) KAVIN Travis Service: Care Management Author Type: Registered Nurse Type: Care Mgt Progress Note Filed: 09/11/2019 12:54 PM Note Text: CARE MANAGEMENT DISCHARGE NOTE SERVICE DATE: 09/11/2019 SERVICE TIME: 12:42 PM LOS: 21 days Admission Date: 08/21/2019 DISCHARGE ARRANGEMENT (list agency and phone number) Discharge Arrangement: shelter facility Was an expedited discharge program used?: No [facility] CARE[facility]IVER ASSESSMENT: HANDOFF COMMUNICATION: Handoff to: Primary Care Physician TRANSPORTATION ARRANGEMENTS: Transportation Arrangements: Ambulance/[facility] Transportation Agency and Phone #:: [facility] ( [facility] ) [phone] / [phone] Type of Service: BLS Non-emergency Is Patient Medicaid Pending?: No Discussion of financial coverage occurred with: Family Patrol Judge Location: [facility] Destination: [facility] Financial Care Management Responsibility: None ADDITIONAL CONTACT RESOURCES: none Auth is obtained and patient has been discharged to [facility]. [facility] is transporting patient via cot at 13:00. Patient notified of discharge. He initially resisted stating he wanted to go to [facility]. Explained that he asked Immunohematologist to have his dtr Angelic makethe decision and she chose [facility]. Patient reluctantly agreed to discharge. Encouraged patient to discuss with staff there if he is not happy with the rehab and still wishes to go to [place]. Patent's dtr Angelic notified. SIGNATURE: Tiffanie Travis RN PATIENT NAME: Elizabeth Modi DATE: September 11, 2019 TIME: 12:41 PM PAGER/CONTACT #: [phone] [facility] CASE MANAGEM HNO ID: [id number] Author: Tiffanie (Rn) KAVIN Travis Service: Care Management Author Type: Registered Nurse Type: Care Mgt Progress Note Filed: 09/11/2019 9:48 AM Note Text: CARE MANAGEMENT PROGRESS NOTE SERVICE DATE: 09/11/2019 SERVICE TIME: 9:47 AM LOS: 21 days Auth received for [facility]. MD notified. SIGNATURE: Tiffanie Travis RN PATIENT NAME: Elizabeth Modi DATE: September 11, 2019 TIME: 9:47 AM PAGER/CONTACT #: [phone] [facility] CONSULT PROGon 09-11-2019 CONSULT PROG HNO ID: [id number] Author: Doris Eden Service: Endocrinology Author Type: Physician Type: Consult Progress Note Filed: 09/11/2019 7:56 AM Note Text: ENDOCRINOLOGY CONSULT PROGRESS NOTE SERVICE DATE: 09/11/2019 SERVICE TIME: 7:40 AM Subjective INTERVAL HPI: Pt followed for diabetes mellitus type 2 with complications. 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 Had LE angiogram on 08/26. Had right femoral endarterectomy on 09/01. Was in ICU, tr to floor on 09/02. 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 D/C plan for Rehab when stable. c/o lot of pain in right leg stump (with immobilizer on). No SOB, no nausea. Had bedside PT. DIET HEART HEALTHY Recent Labs 09/10/19202609/10/19 1640 09/10/19 1136 09/09/19 0557 GLUC -- -- -- -- 79 GLUCOSEMETER 148* 110* 208* < > -- < > = values in this interval not displayed. Current Facility-Administered Medications Medication Dose Route Frequency - ondansetron 4 mg tab(s) (ZOFRAN) 4 mg ORAL q 6 H PRN Or - ondansetron (PF) 4 mg injection (ZOFRAN) 4 mg INTRAVENOUS q 6 H PRN - polyethylene glycol 3350 17 g packet (MIRALAX, GLYCOLAX) 17 g ORAL DAILY PRN - docusate sodium 100 mg cap(s) (COLACE) 100 mg ORAL BID PRN - magnesium hydroxide 400 mg/5 mL 30 mL (MOM) 30 mL ORAL DAILY PRN - bisacodyl 10 mg suppository (DULCOLAX) 10 mg RECTAL DAILY PRN - atorvastatin 40 mg tab(s) (LIPITOR) 40 mg ORAL DAILY - lisinopril 10 mg tab(s) (ZESTRIL, PRINIVIL) 10 mg ORAL DAILY - levothyroxine 25 mcg tab(s) (SYNTHROID) 25 mcg ORAL DAILY - dextrose 40 % 15 g 15 g ORAL PRN Or - glucagon 1 mg injection (GLUCAGEN) 1 mg INTRAMUSCULAR PRN Or - dextrose 50% in water 25 mL syringe 12.5 g INTRAVENOUS PRN - gabapentin 100 mg cap(s) (NEURONTIN) 100 mg ORAL q 8 H - insulin lispro pen (rapid acting) (HumaLOG KWIKPEN) SUBCUTANEOUS w MEALS - glimepiride 4 mg tab(s) (AMARYL) 4 mg ORAL DAILY WITH BREAKFAST - metFORMIN 1,000 mg tab(s) (GLUCOPHAGE) 1,000 mg ORAL BID w MEALS - insulin glargine 10 Units pen (long acting) (LANTUS SOLOSTAR, BASAGLAR KWIKPEN) 10 Units SUBCUTANEOUS AT BEDTIME - metoprolol succinate ER 50 mg tab(s) (TOPROL XL) 50 mg ORAL DAILY - acetaminophen 975 mg tab(s) (TYLENOL) 975 mg ORAL q 6 H - aspirin 81 mg chewable tab(s) 81 mg ORAL DAILY - heparin 5,000 Units injection 5,000 Units SUBCUTANEOUS q 12 H - calcium carbonate 1,000 mg chewable tab(s) (TUMS) 1,000 mg ORAL BID - morphine 2 mg injection 2 mg INTRAVENOUS q 4 H PRN - oxyCODONE IR 5 mg tab(s) (ROXICODONE) 5 mg ORAL q 4 H PRN - insulin lispro 6 Units pen (rapid acting) (HumaLOG KWIKPEN) 6 Units SUBCUTANEOUS w MEALS Objective PHYSICAL EXAM: BP 134/52 Pulse 82 Temp (Src) 98.2 (Temporal) Resp 18 Ht 5' 10" (1.78m) Wt 193 lb 2 oz (87.6kg) SpO2 92% BMI 27.71 kg/(m2). O2 Therapy: Room Air General : sleepy, no distress Lungs : CTA anteriorly Heart : RRR Abdomen soft, no masses Extremities: has immobilizer on R leg stump; dressing on left ankle lat ? DATA: Diagnostic tests reviewed for today's visit: Most recent labs and imaging results. Assessment/Plan Diabetes mellitus type 2, 37 years duration; uncontrolled with complications; HbA1c 9.8. Took insulin in past a few years ago. Started on prog Lantus 10 units qhs on 08/22. Contd home Rx, Metformin 1 gm bid and Glimepiride 4 mg po daily am. Still had hyperglycemia; added prandial humalog 4 units qac tid on 08/23 pm. BS high on 08/24 night; pt did not eat well (30%) and Humalog was held! BS high at hs on 08/26, >300; no pattern, denies having snack? Eating well and on Boost also, has juices occ! On Lantus/Humalog/oral agents. BS overall stable. NO JUICES reinforced. Held oral agents/Humalog on 09/01 am when npo. BS high post-op, was on D5NS. BS were high on 09/02, ? due to pain. Held meds on 09/03 am, pt made NPO; then diet resumed and BS > 200; Amaryl 2 mg given on 09/03 pm. Pt was NPO, went to OR on 09/04; was on IV D5NS, BS high post-op; IVF changed to 1/2 NS after OR; Amaryl 2 mg dose given last night. BS high, ate late but no Humalog given last night. Rx is Metformin 1 gm bid, Glimepiride 4 mg po daily am, Lantus 10 units qhs and Humalog 4 units tid with SSI. BS high on 09/06; increased prandial Humalog to 6 units tid qac on 09/07 noon. BS stable, occ high due to pain but no pattern; cont Rx. 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 Had Right BKA revision on 09/04. PVD, had right common femoral endarterectomy on 09/01 HTN (hypertension) POA: Yes Assessment AND Plan: on Rx Dyslipidemia POA: Yes Assessment AND Plan: on Rx Hypothyroidism POA: Yes Assessment AND Plan: on LT4 Malnutrition of moderate degree (HCC) POA: Yes Assessment AND Plan: on Boost supplements SIGNATURE: Doris Eden MD PATIENT NAME: Elizabeth Modi DATE: September 11, 2019 TIME: 7:56 AM PAGER: [phone] Normal [facility] Glucose Meteron 09-11-2019 Glucose [Mass/Vol] 173 mg/dL High 70-99 [facility] Comment on above: Result Comment: KAVIN Briones OTIFIED Performed By: #### G LMET #### [place] [address] NUTRITIONon 09-11-2019 NUTRITION HNO ID: [id number] Author: Snow Serna Service: Nutrition Therapy Author Type: Registered Dietitian Type: Nutrition Filed: 09/11/2019 12:51 PM Note Text: NUTRITION THERAPY PROGRESS NOTE SERVICE DATE: 09/11/2019 SERVICE TIME: 12:36 PM Nutrition Assessment: Recommended Malnutrition Diagnosis: Moderate Protein-Calorie Malnutrition (09/06/19 1155 : Tanja (Rd) ALEIDA Byrne) Estimated kilocalorie needs: [id number] Calorie Calculation Method: 30-35 kcals/kg Estimated protein needs (grams): 92-121 Grams protein determined by: 1.3-1.7 g/kg Care Plan: Continue current diet Supplements: Boost Glucose Control Monitor and Evaluation: Meet greater than 75% of estimated needs;Monitor fluid/electrolyte balance;Monitor labs, I/Os, vital signs, weight Discharge Recommendations: Diet;Oral Supplements Diet: CARB control, low sodium Oral Supplements: Boost GC BID ---- Nutrition Follow-up: Interval History: C/o pain which is causing some elevated BS and poor appetite. Eating well overall; likes Boost BID. Eager to be discharged. Encouraged continued supplementation. Anthropometrics: Height: 177.8 cm (5' 10") Weight: 87.6 kg (193 lb 2 oz) Dosing Weight: 71 kg (156 lb 8.4 oz)(adjusted IBW for R BKA) Body mass index is 27.71 kg/m?. Overweight Intake History: Current Intake: Greater than 75% estimated energy needs over: 15 days overall Current Diet: DIET HEART HEALTHY SIGNATURE: Snow Serna RD, [place] PATIENT NAME: Elizabeth Modi DATE: September 11, 2019 TIME: 12:36 PM PAGER: [phone] [facility] PLAN OF CAREon 09-11-2019 PLAN OF CARE HNO ID: [id number] Author: Francine Pineda (Pharmacist) Service: Pharmacy Author Type: Pharmacist Type: Plan of Care Filed: 09/11/2019 11:45 AM Note Text: DISCHARGE MEDICATION REVIEW BY PHARMACY Patient Name: Elizabeth Modi Account #: Data Unavailable Admission Date: 08/21/2019 Date of Contact: September 11, 2019 Time of Contact: 11:45 AM Medication list was reviewed by a Pharmacist for drug interactions or drug related problems:Yes Below is a summary of pharmacist recommendations discussed with LIP: No Recommendations at this time from Discharge Medication List. FRANCINE PINEDA, PHARMACIST September 11, 2019 11:45 AM Pager: [phone] 09/11/2019 11:45 AM Medication List START taking these medications acetaminophen 325 mg tablet Commonly known as: TYLENOL Take 3 tablets by mouth every 6 hours. aspirin 81 mg chewable tablet Take 1 tablet by mouth once daily. gabapentin 100 mg capsule Commonly known as: NEURONTIN Take 1 capsule by mouth every 8 hours for 30 days. insulin glargine 100 unit/mL (3 mL) Commonly known as: LANTUS SOLOSTAR, BASAGLAR KWIKPEN Inject 10 Units subcutaneously daily at bedtime. insulin lispro 100 unit/mL Commonly known as: HumaLOG KWIKPEN Inject 6 Units subcutaneously w MEALS. oxyCODONE IR 5 mg immediate release tablet Commonly known as: ROXICODONE Take 1 tablet by mouth every 6 hours as needed for Pain for up to 7 days. CONTINUE taking these medications atorvastatin 40 mg tablet Commonly known as: LIPITOR glimepiride 4 mg tablet Commonly known as: AMARYL levothyroxine 25 mcg tablet Commonly known as: SYNTHROID lisinopril 10 mg tablet Commonly known as: ZESTRIL, PRINIVIL metFORMIN 1,000 mg tablet Commonly known as: GLUCOPHAGE pioglitazone 30 mg tablet Commonly known as: ACTOS Where to Get Your Medications You can get these medications from any pharmacy Bring a paper prescription for each of these medications ? acetaminophen 325 mg tablet ? aspirin 81 mg chewable tablet ? gabapentin 100 mg capsule ? insulin glargine 100 unit/mL (3 mL) ? insulin lispro 100 unit/mL ? oxyCODONE IR 5 mg immediate release tablet Normal [facility] PROGRESSon 09-11-2019 PROGRESS HNO ID: [id number] Author: Tom Prescott DO Service: General Surgery Author Type: Resident Type: Progress Notes Filed: 09/11/2019 6:55 AM Note Text: Attestation signed by Ryan Allen at 09/11/2019 3:46 PM Attending Note I personally saw and examined the patient. I reviewed the resident's note. I agree with the resident's assessment and plan unless otherwise noted. Signature: Ryan Allen MD Date: 09/11/2019 Time: 3:46 PM Vascular/Thoracic Surgery Progress Note SERVICE DATE: 09/11/2019 Vascular AND Thoracic Surgery Service Pager: For questions or concerns Mon-Mon 6a-5p please page [phone]. After 5pm and on Weekends and Holidays, please page [phone] if in ICU or [phone] if on RNF. Subjective SUBJECTIVE: Patient seen and examined this morning. SARATH. States his pain is currently 8/10 in severity, took tylenol mostly for pain control. Dressing taken down this morning, incision examined. Still awaiting precert at [facility]. Continues to do knee exercises, in knee immobilizer this am Denies any new complaints, no N/V, CP/SOB Diet: DIET HEART HEALTHY Objective OBJECTIVE: Vitals: Temp (24hrs), Av.7 ?C (98 ?F), Min:36.4 ?C (97.5 ?F), Max:36.8 ?C (98.2 ?F) BP 134/52 Pulse 82 Temp 36.8 ?C (98.2 ?F) (Temporal) Resp 18 Ht 177.8 cm (5' 10") Wt 87.6 kg (193 lb 2 oz) SpO2 92% BMI 27.71 kg/m? O2 Therapy: Room Air IANDO: Date 09/10/19 0700 - 09/11/19 0659 09/11/19 0700 - 09/12/19 0659 Shift 7721-4406 1141-6519 1337-9287 24 Hour Total 5494-5591 5535-7130 2541-6103 24 Hour Total INTAKE PO 120 120 PO 120 120 Shift Total 120 120 OUTPUT Urine 286 630 1436 2120 Void (ml) 758 456 3577 2120 Urine Not Saved. 1 x 1 x # of BMs Number of BMs 1 x 1 x 2 x Shift Total 650 531 4665 2120 Weight (kg) 87.7 87.7 87.6 87.6 87.6 87.6 87.6 87.6 MEDICATIONS Current Facility-Administered Medications Medication Dose Route Frequency - insulin lispro 6 Units pen (rapid acting) (HumaLOG KWIKPEN) 6 Units SUBCUTANEOUS w MEALS - oxyCODONE IR 5 mg tab(s) (ROXICODONE) 5 mg ORAL q 4 H PRN - morphine 2 mg injection 2 mg INTRAVENOUS q 4 H PRN - calcium carbonate 1,000 mg chewable tab(s) (TUMS) 1,000 mg ORAL BID - acetaminophen 975 mg tab(s) (TYLENOL) 975 mg ORAL q 6 H - aspirin 81 mg chewable tab(s) 81 mg ORAL DAILY - heparin 5,000 Units injection 5,000 Units SUBCUTANEOUS q 12 H - metoprolol succinate ER 50 mg tab(s) (TOPROL XL) 50 mg ORAL DAILY - gabapentin 100 mg cap(s) (NEURONTIN) 100 mg ORAL q 8 H - insulin lispro pen (rapid acting) (HumaLOG KWIKPEN) SUBCUTANEOUS w MEALS - glimepiride 4 mg tab(s) (AMARYL) 4 mg ORAL DAILY WITH BREAKFAST - metFORMIN 1,000 mg tab(s) (GLUCOPHAGE) 1,000 mg ORAL BID w MEALS - insulin glargine 10 Units pen (long acting) (LANTUS SOLOSTAR, BASAGLAR KWIKPEN) 10 Units SUBCUTANEOUS AT BEDTIME - ondansetron 4 mg tab(s) (ZOFRAN) 4 mg ORAL q 6 H PRN Or - ondansetron (PF) 4 mg injection (ZOFRAN) 4 mg INTRAVENOUS q 6 H PRN - polyethylene glycol 3350 17 g packet (MIRALAX, GLYCOLAX) 17 g ORAL DAILY PRN - docusate sodium 100 mg cap(s) (COLACE) 100 mg ORAL BID PRN - magnesium hydroxide 400 mg/5 mL 30 mL (MOM) 30 mL ORAL DAILY PRN - bisacodyl 10 mg suppository (DULCOLAX) 10 mg RECTAL DAILY PRN - atorvastatin 40 mg tab(s) (LIPITOR) 40 mg ORAL DAILY - lisinopril 10 mg tab(s) (ZESTRIL, PRINIVIL) 10 mg ORAL DAILY - levothyroxine 25 mcg tab(s) (SYNTHROID) 25 mcg ORAL DAILY - dextrose 40 % 15 g 15 g ORAL PRN Or - glucagon 1 mg injection (GLUCAGEN) 1 mg INTRAMUSCULAR PRN Or - dextrose 50% in water 25 mL syringe 12.5 g INTRAVENOUS PRN Labs: Recent Labs 09/09/19 0557 NA 133* K 4.0 CHLOR 100 CO2 24 BUN 23* CREAT 0.73 GLUC 79 ANION 13 CA 8.9 MG 1.3* P 3.1 WBC 12.29* HB 8.8* HCT 27.5* PLT 505* Exam: GENERAL: No distress, Alert NEURO: AANDOx3, CN II-XII grossly intact HEENT: normocephalic, atraumatic, EOMI NECK: trachea midline, no JVD LUNGS: Unlabored breathing, O2 Therapy: Room Air CARDIAC: Regular rate, BP as above ABDOMEN: Soft, non-tender EXTREMITIES: GOLDEN, R BKA dressing taken down this am, incision C/D/I with luly- healing well, minimal edema-stump as400 [address] in [address]. SKIN: Skin color, texture, turgor normal, No rashes or lesions ASSESSMENT AND PLAN: ACTIVE PROBLEM LIST Gangrene of Foot (Hcc) Diabetes (Hcc) Htn (Hypertension) Dyslipidemia Hypothyroidism Malnutrition of Moderate Degree (Hcc) Assessment: 79 year old male with PMH of thyroid disease, HTN, dyslipidemia,claudicat ion, DM. 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 Antibiotics stopped 08/23, remains non-septic. 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 09/02 PVR R calf 0.51, R low thigh 0.74. 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 Awaiting pre-cert at [facility] Plan: - Diet: HH - Endocrine following for BS control Appreciate recommendations - S/p formal revision to R BKA Incision health appearing C/D/I with luly- dressing changed this morning, stump as400 consultant and knee immboilizer reapplied Knee immobilizer q4hr - Pain control - PT Rec Acute Rehab - PAD: Cont Statin and asa - IS/mobilize as able - SQh - Dispo Planning: Precert pending at [facility] rehab Assessment and plan discussed with attending: Dr. Allen SIGNATURE: Tom Prescott DO PATIENT NAME: Elizabeth Modi DATE: September 11, 2019 TIME: 6:48 AM Vascular AND Thoracic Surgery Service Pager: For questions or concerns Mon-Mon 6a-5p please page [phone]. After 5pm and on Weekends and Holidays, please page [phone] if in ICU or [phone] if on RNF. Normal [facility] THERAPY NTon 09-11-2019 THERAPY NT HNO ID: [id number] Author: Ramón Obrien) Poppy Service: Physical Therapy Author Type: Geographical Historian Type: Therapy (PT/OT/Speech/Resp) Filed: 09/11/2019 12:04 PM Note Text: Attestation signed by Tori (Pt) Santos at 09/12/2019 3:52 PM I reviewed and agree with the documentation corresponding to this therapy visit. SIGNATURE: Tori Graham PT DATE: September 12, 2019 TIME: 3:52 PM Physical Therapy Treatment SERVICE DATE: 09/11/2019 SERVICE TIME: 1036 to 1111 ROOM: [id number] Recommended Discharge Disposition: Acute Rehab Recommended Discharge Disposition Comments: Pt is functioning far below his baseline level. He would benefit from intense rehabilitation program to mximize functional gains and aide in return to prior level of independence. Justification For Post Acute Needs: Anticipate patient will tolerate 3 hours of daily therapy at the time of admission to post-acute setting;Motivated PT Recommendations to Nursing: OOB for Meals;Transfer to/from chair;With assist of 2 people;Utilize bed in chair position Device: (gait belt sit pivot, chair and bed close) PT 6 Clicks Score: 13 Precautions/Activity Restrictions: Weight Bearing Restrictions;Fall Risk;Lines/Tubes/Drain s Isolation Type: None Extremity With Weight Bearing Restricted: Right Lower Extremity Right Lower Extremity Weight Bearing Status: NWB ASSESSMENT : Patient presents with ongoing PT goals--patient continues to have difficulty with transfers to/from sit/stand, patient unable to achieve full erect posture during standing tasks--requiring maximal assist to maintain standing. Patient continues to be well below baseline functioning at this time. continue to recommend acute care to improve strength, ROM, balance,endurance, normalized gait pattern, and independence with mobility tasks to prior level of function for safe return to home activity. Patient Disposition at Start of Session: Supine in Bed;Call Singh in Reach Patient Disposition at End of Session: OOB in Chair;Call Singh in Reach;Nursing Personnel Present Tolerated Full Session Pain Physical Therapy Problem List: Safety Deficits;Impaired Self Care;Decreased Activity Tolerance;Decreased Strength;Functional Mobility Impairment;Balance Impaired Patient /Caregiver Goals: Walk Goals for Plan of Care: Able to perform HEP with: Verbal Cues Only Transfer supine to/from sit with: Supervision Transfer sit to/from stand with: Minimal Assistance Ambulate with: Moderate Assistance Distance: 5' intervals Device: Wheeled Walker Progress Toward Goals: Progressing as expected Due To: generalized weakness Rehab Potential: Good PLAN: Treatment Frequency (times per week): 7(3-5) Current admission Treatment Interventions: Self Care / Home Management;Energy Conservation Training;Strengthening ;Functional Mobility Training;Balance Training Plan of Care developed with: Patient Additional personnel present during visit: Raiza Gutierres TREATMENT INTERVENTIONS: Therapy Diagnosis: Difficulty walking-musculoskeleta l;Muscle Weakness (generalized) Interventions Provided: Therapeutic Exercise (60204);Therapeutic Activity (11336) Therapeutic Exercise (01849) Treatment Minutes: 18 1 unit Skilled Intervention(s): Patient completed bilateral LE strengthening (ankle pump (LLE), quad set (towel roll under RLE stump), gluteal set, heel slide, resisted hip extension on LLE, hip abd/add, straight leg raise, short arc quad, long arc quad) x 15 reps (with 5 to 10 second holds with quad sets) minimal amount of assist. Cuing to continue to perform left ankle pumps, glut sets, and quad sets x10 hour. Therapeutic Activity (34519) Treatment Minutes: 17 1 unit Skilled Intervention(s): Instructed patient in log roll technique Instructed patient in supine to sit pushing with upper extremities to sit up--cuing for proper UE support, LE movements off side of bed, cuing to push up with elbow/UE to come to sitting, manual assist for trunk. Instruction in sit to and from stand technique with proper hand placement and body positioning at edge of bed/chair--cuing for proper proximity to edge of seated surfaces, proper LLE position closer to body, forward rocking motion of trunk, proper UE support RUE on walker, LUE on seated surface. Patient educated on importance of getting right knee as straight as possible--nursing staff educated on having patient perform quad sets prior to donning straight leg brace to improved knee extension, and for proper placement of brace on LE. Total Timed Code Treatment Minutes: 35 Total Treatment Time (minutes): 35 SUBJECTIVE: Current Hospital Course: Chart reviewed and no significant medical updates relevant to therapy were noted Reason for Physical Therapy Consult : treatment Relevant Past Medical History: thyroid, HTN, DM, claudication Patient Report: patient stated not really wanting to leave hospital, stated he has really enjoyed his stay. 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 Entry To Home: Stairs;With Rail Number Of Stairs Into Home: 4 Number Of Stairs To Bed/Bath: 0 Tub/Shower Type: walk in shower Laundry: main level Equipment Owned: Rollator;Wheelchair Prior Functional Level: Required Assistance;Within Functional Limits Assistance Required With: Cleaning Prior Functional Level Comments: pt independent without devices and completed ADLs OBJECTIVE: CURRENT FUNCTIONAL STATUS: Current Functional Mobility Assist Level Additional Information Rolling Stand By Assistance Supine to Sit Sit to Supine Minimal Assistance Scooting Minimal Assistance Sit to Stand Maximal Assistance Stand to Sit Maximal Assistance Bed to Chair Maximal Assistance Bed To Chair Transfer Type: Sit Pivot Bed To Chair Transfer Equipment: Gait Belt(LLE blocked--chair/bed close) Toilet/Commode Gait (patient unable) Stairs Curb Step Car Transfer Balance: Static Sitting;Dynamic Sitting;Static Standing;Dynamic Standing Static Sitting Balance: Good Patient able to maintain balance without handhold support, limited postural sway Dynamic Sitting Balance: Fair Patient accepts minimal challenge, able to maintain balance while turning head/trunk Static Standing Balance: Poor Patient requires handhold support and moderate to maximal assistance to maintain position Dynamic Standing Balance: Poor Patient unable to accept challenge or move without loss of balance -HLM: 4: Move to chair / commode Please see discipline specific clinical documentation flowsheet for complete details for this therapy evaluation/treatment. SIGNATURE: Ramón Mcwilliams PTA PATIENT NAME: Elizabeth Modi DATE: September 11, 2019 TIME: 11:55 AM Normal [facility] CONSULT PROGon 09-10-2019 CONSULT PROG HNO ID: [id number] Author: Doris Eden Service: Endocrinology Author Type: Physician Type: Consult Progress Note Filed: 09/10/2019 7:55 AM Note Text: ENDOCRINOLOGY CONSULT PROGRESS NOTE SERVICE DATE: 09/10/2019 SERVICE TIME: 7:35 AM Subjective INTERVAL HPI: Pt followed for diabetes mellitus type 2 with complications. 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 Had LE angiogram on 08/26. Had right femoral endarterectomy on 09/01. Was in ICU, tr to floor on 09/02. 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 D/C plan for Rehab when stable. c/o pain in right leg stump (immobilizer on). No SOB, no nausea. Had bedside PT. DIET HEART HEALTHY Recent Labs 09/09/19 2041 09/09/19 1644 09/09/19 1131 09/09/19 0557 09/08/19 0446 09/07/19 0632 GLUC -- -- -- -- 79 -- 132* -- 147* GLUCOSEMETER 144* 106* 163* < > -- < > -- < > -- < > = values in this interval not displayed. Current Facility-Administered Medications Medication Dose Route Frequency - ondansetron 4 mg tab(s) (ZOFRAN) 4 mg ORAL q 6 H PRN Or - ondansetron (PF) 4 mg injection (ZOFRAN) 4 mg INTRAVENOUS q 6 H PRN - polyethylene glycol 3350 17 g packet (MIRALAX, GLYCOLAX) 17 g ORAL DAILY PRN - docusate sodium 100 mg cap(s) (COLACE) 100 mg ORAL BID PRN - magnesium hydroxide 400 mg/5 mL 30 mL (MOM) 30 mL ORAL DAILY PRN - bisacodyl 10 mg suppository (DULCOLAX) 10 mg RECTAL DAILY PRN - atorvastatin 40 mg tab(s) (LIPITOR) 40 mg ORAL DAILY - lisinopril 10 mg tab(s) (ZESTRIL, PRINIVIL) 10 mg ORAL DAILY - levothyroxine 25 mcg tab(s) (SYNTHROID) 25 mcg ORAL DAILY - dextrose 40 % 15 g 15 g ORAL PRN Or - glucagon 1 mg injection (GLUCAGEN) 1 mg INTRAMUSCULAR PRN Or - dextrose 50% in water 25 mL syringe 12.5 g INTRAVENOUS PRN - gabapentin 100 mg cap(s) (NEURONTIN) 100 mg ORAL q 8 H - insulin lispro pen (rapid acting) (HumaLOG KWIKPEN) SUBCUTANEOUS w MEALS - glimepiride 4 mg tab(s) (AMARYL) 4 mg ORAL DAILY WITH BREAKFAST - metFORMIN 1,000 mg tab(s) (GLUCOPHAGE) 1,000 mg ORAL BID w MEALS - insulin glargine 10 Units pen (long acting) (LANTUS SOLOSTAR, BASAGLAR KWIKPEN) 10 Units SUBCUTANEOUS AT BEDTIME - metoprolol succinate ER 50 mg tab(s) (TOPROL XL) 50 mg ORAL DAILY - acetaminophen 975 mg tab(s) (TYLENOL) 975 mg ORAL q 6 H - aspirin 81 mg chewable tab(s) 81 mg ORAL DAILY - heparin 5,000 Units injection 5,000 Units SUBCUTANEOUS q 12 H - calcium carbonate 1,000 mg chewable tab(s) (TUMS) 1,000 mg ORAL BID - morphine 2 mg injection 2 mg INTRAVENOUS q 4 H PRN - oxyCODONE IR 5 mg tab(s) (ROXICODONE) 5 mg ORAL q 4 H PRN - insulin lispro 6 Units pen (rapid acting) (HumaLOG KWIKPEN) 6 Units SUBCUTANEOUS w MEALS Objective PHYSICAL EXAM: BP 142/63 Pulse 85 Temp (Src) 98.2 (Oral) Resp 16 Ht 5' 10" (1.78m) Wt 193 lb 5.5 oz (87.7kg) SpO2 100% BMI 27.74 kg/(m2). O2 Therapy: Room Air General : no distress Lungs : CTA anteriorly Heart : RRR Abdomen soft, no masses Extremities: has dressing/as400 consultant on R leg stump; dressing on left ankle lat ? DATA: Diagnostic tests reviewed for today's visit: Most recent labs and imaging results. Assessment/Plan Diabetes mellitus type 2, 37 years duration; uncontrolled with complications; HbA1c 9.8. Took insulin in past a few years ago. Started on prog Lantus 10 units qhs on 08/22. Contd home Rx, Metformin 1 gm bid and Glimepiride 4 mg po daily am. Still had hyperglycemia; added prandial humalog 4 units qac tid on 3 pm. BS high on 08/24 night; pt did not eat well (30%) and Humalog was held! BS high at hs on 08/26, >300; no pattern, denies having snack? Eating well and on Boost also, has juices occ! On Lantus/Humalog/oral agents. BS overall stable. NO JUICES reinforced. Held oral agents/Humalog on 09/01 am when npo. BS high post-op, was on D5NS. BS were high on 09/02, ? due to pain. Held meds on 09/03 am, pt made NPO; then diet resumed and BS > 200; Amaryl 2 mg given on 09/03 pm. Pt was NPO, went to OR on 09/04; was on IV D5NS, BS high post-op; IVF changed to 1/2 NS after OR; Amaryl 2 mg dose given last night. BS high, ate late but no Humalog given last night. Rx is Metformin 1 gm bid, Glimepiride 4 mg po daily am, Lantus 10 units qhs and Humalog 4 units tid with SSI. BS high; increased prandial Humalog to 6 units tid qac on 09/07 noon. BS better, cont Rx. 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 Had Right BKA revision on 09/04. PVD, had right common femoral endarterectomy on 09/01 HTN (hypertension) POA: Yes Assessment AND Plan: on Rx Dyslipidemia POA: Yes Assessment AND Plan: on Rx Hypothyroidism POA: Yes Assessment AND Plan: on LT4 Malnutrition of moderate degree (HCC) POA: Yes Assessment AND Plan: on Boost supplements SIGNATURE: Doris Eden MD PATIENT NAME: Elizabeth Modi DATE: September 10, 2019 TIME: 7:55 AM PAGER: [phone] Normal [facility] PROGRESSon 09-10-2019 PROGRESS HNO ID: [id number] Author: Jennifer Crooks Service: Vascular Surgery Author Type: Resident Type: Progress Notes Filed: 09/10/2019 7:18 AM Note Text: Attestation signed by Ryan Allen at 09/11/2019 3:42 PM I personally saw and examined the patient on 09/10/19. I reviewed the resident's note. I agree with the resident's assessment and plan unless otherwise noted. Vascular Surgery Progress Note SERVICE DATE: 09/10/2019 SUBJECTIVE: No acute events overnight. Pain moderately well controlled this am. Afebrile. Dressing changed this am. Tolerating diet DIET HEART HEALTHY OBJECTIVE: Vitals: Temp (24hrs), Av.9 ?C (98.5 ?F), Min:36.8 ?C (98.2 ?F), Max:37.2 ?C (99 ?F) BP 142/63 Pulse 85 Temp 36.8 ?C (98.2 ?F) (Oral) Resp 16 Ht 177.8 cm (5' 10") Wt 87.7 kg (193 lb 5.5 oz) SpO2 100% BMI 27.74 kg/m? O2 Therapy: Room Air IANDO: Date 09/09/19699 - 09/10/1958 09/10/19 07 - 09/11/19 0659 Shift 8645-3709 7959-9526 0283-3520 24 Hour Total 7022-1112 0631-0460 4814-0145 24 Hour Total INTAKE Shift Total OUTPUT Urine 924 702 9112 Void (ml) 333 983 1385 # of BMs Number of BMs 1 x 1 x 2 x Shift Total 935 914 5557 Weight (kg) 87.7 87.7 87.7 87.7 87.7 87.7 87.7 87.7 MEDICATIONS Current Facility-Administered Medications Medication Dose Route Frequency - insulin lispro 6 Units pen (rapid acting) (HumaLOG KWIKPEN) 6 Units SUBCUTANEOUS w MEALS - oxyCODONE IR 5 mg tab(s) (ROXICODONE) 5 mg ORAL q 4 H PRN - morphine 2 mg injection 2 mg INTRAVENOUS q 4 H PRN - calcium carbonate 1,000 mg chewable tab(s) (TUMS) 1,000 mg ORAL BID - acetaminophen 975 mg tab(s) (TYLENOL) 975 mg ORAL q 6 H - aspirin 81 mg chewable tab(s) 81 mg ORAL DAILY - heparin 5,000 Units injection 5,000 Units SUBCUTANEOUS q 12 H - metoprolol succinate ER 50 mg tab(s) (TOPROL XL) 50 mg ORAL DAILY - gabapentin 100 mg cap(s) (NEURONTIN) 100 mg ORAL q 8 H - insulin lispro pen (rapid acting) (HumaLOG KWIKPEN) SUBCUTANEOUS w MEALS - glimepiride 4 mg tab(s) (AMARYL) 4 mg ORAL DAILY WITH BREAKFAST - metFORMIN 1,000 mg tab(s) (GLUCOPHAGE) 1,000 mg ORAL BID w MEALS - insulin glargine 10 Units pen (long acting) (LANTUS SOLOSTAR, BASAGLAR KWIKPEN) 10 Units SUBCUTANEOUS AT BEDTIME - ondansetron 4 mg tab(s) (ZOFRAN) 4 mg ORAL q 6 H PRN Or - ondansetron (PF) 4 mg injection (ZOFRAN) 4 mg INTRAVENOUS q 6 H PRN - polyethylene glycol 3350 17 g packet (MIRALAX, GLYCOLAX) 17 g ORAL DAILY PRN - docusate sodium 100 mg cap(s) (COLACE) 100 mg ORAL BID PRN - magnesium hydroxide 400 mg/5 mL 30 mL (MOM) 30 mL ORAL DAILY PRN - bisacodyl 10 mg suppository (DULCOLAX) 10 mg RECTAL DAILY PRN - atorvastatin 40 mg tab(s) (LIPITOR) 40 mg ORAL DAILY - lisinopril 10 mg tab(s) (ZESTRIL, PRINIVIL) 10 mg ORAL DAILY - levothyroxine 25 mcg tab(s) (SYNTHROID) 25 mcg ORAL DAILY - dextrose 40 % 15 g 15 g ORAL PRN Or - glucagon 1 mg injection (GLUCAGEN) 1 mg INTRAMUSCULAR PRN Or - dextrose 50% in water 25 mL syringe 12.5 g INTRAVENOUS PRN Labs: Recent Labs 09/09/19 0557 09/08/19 0446 NA 133* 133* K 4.0 3.9 CHLOR 100 102 CO2 24 24 BUN 23* 17 CREAT 0.73 0.71 GLUC 79 132* ANION 13 11 CA 8.9 8.7 MG 1.3* 1.2* P 3.1 3.0 WBC 12.29* 12.29* HB 8.8* 8.2* HCT 27.5* 27.0* PLT 505* 444* Exam: BP 142/63 Pulse 85 Temp 36.8 ?C (98.2 ?F) (Oral) Resp 16 Ht 177.8 cm (5' 10") Wt 87.7 kg (193 lb 5.5 oz) SpO2 100% BMI 27.74 kg/m? GENERAL: No distress, Alert NEURO: AANDOx3, CN II-XII grossly intact HEENT: normocephalic, atraumatic LUNGS: Unlabored breathing CARDIAC: Regular rate EXTREMITIES: GOLDEN, No edema, R BKA site: c/d/i. Minimal ecchymosis. Healing well SKIN: Skin color, texture, turgor normal, No rashes or lesions ASSESSMENT AND PLAN: Active Hospital Problems Diagnosis Date Noted - Malnutrition of moderate degree ([facility]) 08/22/2019 - Gangrene of foot (HCC) 08/21/2019 - Diabetes ([facility]) 08/21/2019 - HTN (hypertension) 08/21/2019 - Dyslipidemia 08/21/2019 - Hypothyroidism 08/21/2019 79 year old male with PMH of thyroid disease, HTN, dyslipidemia,claudicat ion, DM. 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 Antibiotics stopped 08/23, remains non-septic. 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 09/02 PVR R calf 0.51, R low thigh 0.74. 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 ? Plan: -?DIET HEART HEALTHY? 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 Dressing changed re-applied stump as400 consultant today. Knee immobilize q4hr - Pain control - PT/OT?recs:?acute rehab - [facility] ppx - Mobilization as able, out of bed to chair?as tolerated - PAD - continue statin?and aspirin - Dispo planning: awaiting precert to [facility] Vascular AND Thoracic Surgery Service Pager: For questions or concerns Mon-Mon 6a-5p please page [phone]. After 5pm and on Weekends and Holidays, please page [phone] if in ICU or [phone] if on RNF. SIGNATURE: Jennifer Crooks MD PATIENT NAME: Elizabeth Modi DATE: September 10, 2019 TIME: 6:28 AM Pager: [facility] THERAPY NTon 09-10-2019 THERAPY NT HNO ID: [id number] Author: Ramón Obrien) Poppy Service: Physical Therapy Author Type: Geographical Historian Type: Therapy (PT/OT/Speech/Resp) Filed: 09/10/2019 12:18 PM Note Text: Attestation signed by Troi Rapp) Santos at 09/11/2019 11:35 AM I reviewed and agree with the documentation corresponding to this therapy visit. SIGNATURE: Tori Graham, PT DATE: September 11, 2019 TIME: 11:35 AM Physical Therapy Treatment SERVICE DATE: 09/10/2019 SERVICE TIME: 1043 to 1108 ROOM: [id number] Recommended Discharge Disposition: Acute Rehab Recommended Discharge Disposition Comments: Pt is functioning far below his baseline level. He would benefit from intense rehabilitation program to mximize functional gains and aide in return to prior level of independence. Justification For Post Acute Needs: Anticipate patient will tolerate 3 hours of daily therapy at the time of admission to post-acute setting;Motivated PT Recommendations to Nursing: OOB for Meals;Transfer to/from chair;With assist of 2 people;Utilize bed in chair position Device: (gait belt sit pivot, chair and bed close) PT 6 Clicks Score: 13 Precautions/Activity Restrictions: Weight Bearing Restrictions;Fall Risk;Lines/Tubes/Drain s Isolation Type: None Extremity With Weight Bearing Restricted: Right Lower Extremity Right Lower Extremity Weight Bearing Status: NWB ASSESSMENT : Patient presents with ongoing PT goals--patient with continued difficulty with all mobility tasks, unable to come to standing without maximal assist, decreased strength and endurance. continue to recommend acute care to improve strength, ROM, balance,endurance, normalized gait pattern, and independence with mobility tasks to prior level of function for safe return to home activity. Patient Disposition at Start of Session: Supine in Bed;Call Singh in Reach Patient Disposition at End of Session: OOB in Chair;Call Singh in Reach(nursing aware of location) Tolerated Full Session Pain Physical Therapy Problem List: Safety Deficits;Impaired Self Care;Decreased Activity Tolerance;Decreased Strength;Functional Mobility Impairment;Balance Impaired Patient /Caregiver Goals: Walk Goals for Plan of Care: Able to perform HEP with: Verbal Cues Only Transfer supine to/from sit with: Supervision Transfer sit to/from stand with: Minimal Assistance Ambulate with: Moderate Assistance Distance: 5' intervals Device: Wheeled Walker Progress Toward Goals: Progressing as expected Due To: generalized weakness Rehab Potential: Good PLAN: Treatment Frequency (times per week): 7(3-5) Current admission Treatment Interventions: Self Care / Home Management;Energy Conservation Training;Strengthening ;Functional Mobility Training;Balance Training Plan of Care developed with: Patient Additional personnel present during visit: Raiza Gutierres TREATMENT INTERVENTIONS: Therapy Diagnosis: Difficulty walking-musculoskeleta l;Muscle Weakness (generalized) Interventions Provided: Therapeutic Activity (13529) Therapeutic Activity (98837) Treatment Minutes: 25 2 units Skilled Intervention(s): Instructed patient in supine to sit pushing with upper extremities to sit up-cuing for proper rolling to each side for linen adjustment-cuing for pushing with UEs, bringing LEs off side of bed for transition to sitting. EOB scooting to improved UE strengthening for proper pushoff with all mobility tasks and in preparation for transfers to another surface. Cuing for proper leaning opposite side scooting to decreased weight bearing to improve scooting. Cuing for proper forward trunk leading to also clear bottom for scooting. Instruction in sit to and from stand technique with proper hand placement and body positioning at edge of bed/chair-- Sit to stand, patient requiring maximal assist to come to full standing position, patient performing sit pivot transfer to safely go from bed to chair. Patient performing quad sets with rolled towel under stump to promote knee extension ROM. Cuing to perform quad sets x10 reps/hour to improve knee extension. Patient educated on needing to get right leg straight to avoid contracture. Total Timed Code Treatment Minutes: 25 Total Treatment Time (minutes): 25 SUBJECTIVE: Current Hospital Course: Chart reviewed and no significant medical updates relevant to therapy were noted Reason for Physical Therapy Consult : treatment Relevant Past Medical History: thyroid, HTN, DM, claudication Patient Report: patient stated feeling comfortable sitting up in chair. Nursing made aware to have 2 persons as needed to transfer patient back to bed to be safe for patient and staff. 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 Entry To Home: Stairs;With Rail Number Of Stairs Into Home: 4 Number Of Stairs To Bed/Bath: 0 Tub/Shower Type: walk in shower Laundry: main level Equipment Owned: Rollator;Wheelchair Prior Functional Level: Required Assistance;Within Functional Limits Assistance Required With: Cleaning Prior Functional Level Comments: pt independent without devices and completed ADLs OBJECTIVE: CURRENT FUNCTIONAL STATUS: Current Functional Mobility Assist Level Additional Information Rolling Stand By Assistance Supine to Sit Minimal Assistance Sit to Supine Scooting Minimal Assistance Sit to Stand Maximal Assistance Stand to Sit Maximal Assistance Bed to Chair Maximal Assistance Bed To Chair Transfer Type: Sit Pivot Bed To Chair Transfer Equipment: Gait Belt(LLE blocked) Toilet/Commode Stairs Curb Step Car Transfer Balance: Static Sitting;Dynamic Sitting;Static Standing;Dynamic Standing Static Sitting Balance: Good Patient able to maintain balance without handhold support, limited postural sway Dynamic Sitting Balance: Fair Patient accepts minimal challenge, able to maintain balance while turning head/trunk Static Standing Balance: Poor Patient requires handhold support and moderate to maximal assistance to maintain position Dynamic Standing Balance: Poor Patient unable to accept challenge or move without loss of balance JH-HLM: 4: Move to chair / commode Please see discipline specific clinical documentation flowsheet for complete details for this therapy evaluation/treatment. SIGNATURE: Ramón Mcwilliams PTA PATIENT NAME: Elizabeth Modi DATE: September 10, 2019 TIME: 12:09 PM Normal [facility] Basic Panelon 09-09-2019 Creatinine [Mass/Vol] 0.73 mg/dL Normal 0.67-1.17 [facility] Comment on above: Result Comment: Use of this assay is not recommended for patients undergoing treatment with phenindione, due to the potential for falsely depressed results. Performed By: #### C BC1 #### [facility] [address] [place], [place] [address] Anion gap [Moles/Vol] 13 mmol/L Normal 8-16 [facility] Comment on above: Performed By: #### C BC1 #### [facility] [address] [place], [place] [address] CO2 [Moles/Vol] 24 mmol/L Normal 21-32 [facility] Comment on above: Performed By: #### C BC1 #### [address] [address] Urea nitrogen [Mass/Vol] 23 mg/dL High 7-18 [facility] Comment on above: Performed By: #### C BC1 #### [address] [address] Calcium [Mass/Vol] 8.9 mg/dL Normal 8.5-10.1 [facility] Comment on above: Performed By: #### C BC1 #### [address] [address] Glucose [Mass/Vol] 79 mg/dL Normal 70-99 [facility] Comment on above: Performed By: #### C BC1 #### [facility] [address] [place], [place] [address] Chloride [Moles/Vol] 100 mmol/L Normal 98-107 [facility] Comment on above: Performed By: #### C BC1 #### [address] [address] Potassium [Moles/Vol] 4.0 mmol/L Normal 3.5-5.1 [facility] Comment on above: Performed By: #### C BC1 #### [address] [place], [place] [address] Sodium [Moles/Vol] 133 mmol/L Low 136-145 [facility] Comment on above: Performed By: #### C BC1 #### [place] [id number] CASE MANAGEMon 09-09-2019 CASE MANAGEM HNO ID: [id number] Author: Christina Perez Service: Care Management Author Type: ? Type: Care Mgt Progress Note Filed: 09/09/2019 11:40 AM Note Text: CARE MANAGEMENT PROGRESS NOTE SERVICE DATE: 09/09/2019 SERVICE TIME: 1000 LOS: 19 days IMM Follow Up Copy Given: Yes(verbal reminder given regarding IMM) Copy given to:: Patient Method: By Phone(covid protocal) SIGNATURE: Christina Perez PATIENT NAME: Elizabeth Modi DATE: September 09, 2019 TIME: 11:40 AM PAGER/CONTACT #: [phone] Normal [facility] CASE MANAGEM HNO ID: [id number] Author: Tami (Rn) KAVIN Patricio Service: Care Management Author Type: Registered Nurse Type: Care Mgt Progress Note Filed: 09/09/2019 9:15 AM Note Text: CARE MANAGEMENT PROGRESS NOTE SERVICE DATE: 09/09/2019 SERVICE TIME: 9:14 AM LOS: 19 days Chart reviewed. Precert pending for [facility] rehab. Pt will need cot for transport at d/c. Will follow. SIGNATURE: Tami Patricio RN PATIENT NAME: Elizabeth Modi DATE: September 09, 2019 TIME: 9:14 AM PAGER/CONTACT #: [phone] [facility] CONSULT PROGon 09-09-2019 CONSULT PROG HNO ID: [id number] Author: Doris Eden Service: Endocrinology Author Type: Physician Type: Consult Progress Note Filed: 09/09/2019 8:25 AM Note Text: ENDOCRINOLOGY CONSULT PROGRESS NOTE SERVICE DATE: 09/09/2019 SERVICE TIME: 8:00 AM Subjective INTERVAL HPI: Pt followed for diabetes mellitus type 2 with complications. 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 Had LE angiogram on 3/10. Had right femoral endarterectomy on 09/01. Was in ICU, tr to floor on 09/02. 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 D/C plan for Rehab when stable. Pt has occ pain in right leg stump, worse with immoblizer. No SOB, no nausea. DIET HEART HEALTHY Recent Labs 09/09/19 0557 09/08/19 2023 09/08/19 1637 09/08/19 1102 09/08/19 0446 09/07/19 0632 GLUC 79 -- -- -- -- 132* -- 147* GLUCOSEMETER -- 126* 192* 245* < > -- < > -- < > = values in this interval not displayed. Current Facility-Administered Medications Medication Dose Route Frequency - ondansetron 4 mg tab(s) (ZOFRAN) 4 mg ORAL q 6 H PRN Or - ondansetron (PF) 4 mg injection (ZOFRAN) 4 mg INTRAVENOUS q 6 H PRN - polyethylene glycol 3350 17 g packet (MIRALAX, GLYCOLAX) 17 g ORAL DAILY PRN - docusate sodium 100 mg cap(s) (COLACE) 100 mg ORAL BID PRN - magnesium hydroxide 400 mg/5 mL 30 mL (MOM) 30 mL ORAL DAILY PRN - bisacodyl 10 mg suppository (DULCOLAX) 10 mg RECTAL DAILY PRN - atorvastatin 40 mg tab(s) (LIPITOR) 40 mg ORAL DAILY - lisinopril 10 mg tab(s) (ZESTRIL, PRINIVIL) 10 mg ORAL DAILY - levothyroxine 25 mcg tab(s) (SYNTHROID) 25 mcg ORAL DAILY - dextrose 40 % 15 g 15 g ORAL PRN Or - glucagon 1 mg injection (GLUCAGEN) 1 mg INTRAMUSCULAR PRN Or - dextrose 50% in water 25 mL syringe 12.5 g INTRAVENOUS PRN - gabapentin 100 mg cap(s) (NEURONTIN) 100 mg ORAL q 8 H - insulin lispro pen (rapid acting) (HumaLOG KWIKPEN) SUBCUTANEOUS w MEALS - glimepiride 4 mg tab(s) (AMARYL) 4 mg ORAL DAILY WITH BREAKFAST - metFORMIN 1,000 mg tab(s) (GLUCOPHAGE) 1,000 mg ORAL BID w MEALS - insulin glargine 10 Units pen (long acting) (LANTUS SOLOSTAR, BASAGLAR KWIKPEN) 10 Units SUBCUTANEOUS AT BEDTIME - metoprolol succinate ER 50 mg tab(s) (TOPROL XL) 50 mg ORAL DAILY - acetaminophen 975 mg tab(s) (TYLENOL) 975 mg ORAL q 6 H - aspirin 81 mg chewable tab(s) 81 mg ORAL DAILY - heparin 5,000 Units injection 5,000 Units SUBCUTANEOUS q 12 H - calcium carbonate 1,000 mg chewable tab(s) (TUMS) 1,000 mg ORAL BID - morphine 2 mg injection 2 mg INTRAVENOUS q 4 H PRN - oxyCODONE IR 5 mg tab(s) (ROXICODONE) 5 mg ORAL q 4 H PRN - insulin lispro 6 Units pen (rapid acting) (HumaLOG KWIKPEN) 6 Units SUBCUTANEOUS w MEALS Objective PHYSICAL EXAM: BP 128/55 Pulse 102 Temp (Src) 97.9 (Oral) Resp 18 Ht 5' 10" (1.78m) Wt 193 lb 5.5 oz (87.7kg) SpO2 98% BMI 27.74 kg/(m2). O2 Therapy: Room Air General : no distress Lungs : CTA anteriorly Heart : RRR Abdomen soft, no masses Extremities: has dressing/as400 consultant on R leg stump; dressing on left ankle lat ? DATA: Diagnostic tests reviewed for today's visit: Most recent labs and imaging results. Assessment/Plan Diabetes mellitus type 2, 37 years duration; uncontrolled with complications; HbA1c 9.8. Took insulin in past a few years ago. Started on prog Lantus 10 units qhs on 08/22. Contd home Rx, Metformin 1 gm bid and Glimepiride 4 mg po daily am. Still had hyperglycemia; added prandial humalog 4 units qac tid on 08/23 pm. BS high on 08/24 night; pt did not eat well (30%) and Humalog was held! BS high at hs on 08/26, >300; no pattern, denies having snack? Eating well and on Boost also, has juices occ! On Lantus/Humalog/oral agents. BS overall stable. NO JUICES reinforced. Held oral agents/Humalog on 09/01 am when npo. BS high post-op, was on D5NS. BS were high on 09/02, ? due to pain. Held meds on 09/03 am, pt made NPO; then diet resumed and BS > 200; Amaryl 2 mg given on 09/03 pm. Pt was NPO, went to OR on 09/04; was on IV D5NS, BS high post-op; IVF changed to 1/2 NS after OR; Amaryl 2 mg dose given last night. BS high, ate late but no Humalog given last night. Rx is Metformin 1 gm bid, Glimepiride 4 mg po daily am, Lantus 10 units qhs and Humalog 4 units tid with SSI. BS high; increased prandial Humalog to 6 units tid qac on 09/07 noon. BS better, cont Rx. 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 Had Right BKA revision on 09/04. PVD, had right common femoral endarterectomy on 09/01 HTN (hypertension) POA: Yes Assessment AND Plan: on Rx Dyslipidemia POA: Yes Assessment AND Plan: on Rx Hypothyroidism POA: Yes Assessment AND Plan: on LT4 Malnutrition of moderate degree (HCC) POA: Yes Assessment AND Plan: on Boost supplements SIGNATURE: Doris Eden MD PATIENT NAME: Elizabeth Modi DATE: September 09, 2019 TIME: 8:25 AM PAGER: [phone] Normal [facility] Hemogramon 09-09-2019 Erythrocyte distribution width (RBC) [Ratio] 15.9 % High 11.6-14.4 [facility] Comment on above: Performed By: #### P 8 #### [address] [address] Hematocrit (Bld) [Volume fraction] 27.5 % Low 40.1-51.0 [facility] Comment on above: Performed By: #### P 8 #### [address] [address] Hemoglobin (Bld) [Mass/Vol] 8.8 g/dL Low 13.7-17.5 [facility] Comment on above: Performed By: #### P 8 #### [facility] [address] [place], [place] [address] MCH (RBC) [Entitic mass] 29.2 pg Normal 25.7-32.2 [facility] Comment on above: Performed By: #### P 8 #### [facility] [address] [place] [address] MCHC (RBC) [Mass/Vol] 32.0 % Low 32.3-36.5 [facility] Comment on above: Performed By: #### P 8 #### [facility] [address] [place] [address] MCV (RBC) [Entitic vol] 91.4 fL Normal 83.2-95.6 [facility] Comment on above: Performed By: #### P 8 #### [facility] [address] [place] [address] Platelet mean volume (Bld) [Entitic vol] 9.6 fL Normal 8.7-12.0 [facility] Comment on above: Performed By: #### P 8 #### [facility] [address] [place] [address] Platelets (Bld) [#/Vol] 505 thou/cmm High 141-365 [facility] Comment on above: Performed By: #### P 8 #### [facility] [address] [place] [address] RBC (Bld) [#/Vol] 3.01 mil/cmm Low 4.63-6.08 [facility] Comment on above: Performed By: #### P 8 #### [facility] [address] [place] [address] RDW SD 51.8 fl High 36.1-45.8 [facility] Comment on above: Performed By: #### P 8 #### [facility] [address] [place] [id number] WBC (Bld) [#/Vol] 12.29 thou/cmm High 4.23-9.07 [facility] Comment on above: Performed By: #### P 8 #### [facility] [address] [place] [address] MDRD GFRon 09-09-2019 GFR/1.73 sq M predicted among non-blacks MDRD (S/P/Bld) [Vol rate/Area] mL/min/{1.73_m2} Normal >60mL/min/1 .73m2 [facility] Comment on above: Result Comment: If t he patient is , multiply the result by 1.210. Performed By: #### C BC1 #### [address] [address] Magnesium Bloodon 09-09-2019 Magnesium [Mass/Vol] 1.3 mg/dL Low 1.6-2.6 [facility] Comment on above: Performed By: #### C _ANA #### [address] [address] PLAN OF CAREon 09-09-2019 PLAN OF CARE HNO ID: [id number] Author: Francine Pineda (Pharmacist) Service: Pharmacy Author Type: Pharmacist Type: Plan of Care Filed: 09/09/2019 11:32 AM Note Text: MEDICATION HISTORY AND MEDICATION RECONCILIATION Patient Name:Nelson Modi : 1940 Source of history:Pharmacy records: [email or web address] [address] [address] - [address] [place], [place] [id number] Medication Nonadherence Identified: No barriers noted- up to date on refills The above information represents the best possible medication history: Yes Reconciliation completed? Yes All [employer] JELLY medications addressed by LIP Additional comments: [id number] Medication List Adjustments: Medication Regimen Changes: None Medications Added: None Medications Removed: None Short-Term Medications: None Further Clarification Required: None Patient is a 30 day readmission: No Patient Interested in Bedside Delivery: No Time Spent Reviewing Patient's Medications: 40 minutes Allergies: ALLERGIES No Known Allergies Preferred Pharmacy: [facility] [address] [address] - [address] [place] [address] ?- [phone] Current [employer] Medications: Prior to Admission medications as of 09/09/19 1121 Medication Sig Last Dose Taking atorvastatin (LIPITOR) 40 mg tablet Take 40 mg by mouth once daily. levothyroxine (SYNTHROID) 25 mcg tablet Take 25 mcg by mouth once daily. lisinopril (ZESTRIL, PRINIVIL) 10 mg tablet Take 10 mg by mouth once daily. pioglitazone (ACTOS) 30 mg tablet Take 30 mg by mouth once daily. metFORMIN (GLUCOPHAGE) 1,000 mg tablet Take 1,000 mg by mouth twice daily. glimepiride (AMARYL) 4 mg tablet Take 4 mg by mouth twice daily. FRANCINE PINEDA, PHARMACIST September 09, 2019 11:24 AM Normal [facility] PROGRESSon 09-09-2019 PROGRESS HNO ID: [id number] Author: Tom Prescott DO Service: General Surgery Author Type: Resident Type: Progress Notes Filed: 09/09/2019 9:03 AM Note Text: Attestation signed by Ryan Allen at 09/09/2019 5:17 PM Attending Note I personally saw and examined the patient. I reviewed the resident's note. I agree with the resident's assessment and plan unless otherwise noted. Still having some pain issues when seen today in his room in his room. slow progress. Care management looking into disposition/rehabilita tion Signature: Ryan Allen MD Date: 09/09/2019 Time: 5:17 PM Vascular Surgery Progress Note SERVICE DATE: 09/09/2019 SUBJECTIVE: No acute events overnight. Reports pain moderately well controlled this am. Complains of pain while wearing knee immobilizer. Stump as400 consultant supplied by [employer]. Denies f/C. Moving the stump without to much difficulty Tolerating diet DIET HEART HEALTHY OBJECTIVE: Vitals: Temp (24hrs), Av.7 ?C (98.1 ?F), Min:36.6 ?C (97.9 ?F), Max:36.8 ?C (98.2 ?F) BP 128/55 Pulse 102 Temp 36.6 ?C (97.9 ?F) (Oral) Resp 18 Ht 177.8 cm (5' 10") Wt 87.7 kg (193 lb 5.5 oz) SpO2 98% BMI 27.74 kg/m? O2 Therapy: Room Air IANDO: Date 09/08/19 07 - 09/09/19 0659 09/09/19 07 - 09/10/19 0659 Shift 3371-0090 0644-7959 8229-3536 24 Hour Total 5021-1420 8899-7635 7767-8545 24 Hour Total INTAKE Shift Total OUTPUT Urine 700 700 300 300 Void (ml) 700 700 300 300 # of BMs Number of BMs 2 x 2 x Shift Total 700 700 300 300 Weight (kg) 90.4 90.4 87.7 87.7 87.7 87.7 87.7 87.7 MEDICATIONS Current Facility-Administered Medications Medication Dose Route Frequency - insulin lispro 6 Units pen (rapid acting) (HumaLOG KWIKPEN) 6 Units SUBCUTANEOUS w MEALS - oxyCODONE IR 5 mg tab(s) (ROXICODONE) 5 mg ORAL q 4 H PRN - morphine 2 mg injection 2 mg INTRAVENOUS q 4 H PRN - calcium carbonate 1,000 mg chewable tab(s) (TUMS) 1,000 mg ORAL BID - acetaminophen 975 mg tab(s) (TYLENOL) 975 mg ORAL q 6 H - aspirin 81 mg chewable tab(s) 81 mg ORAL DAILY - heparin 5,000 Units injection 5,000 Units SUBCUTANEOUS q 12 H - metoprolol succinate ER 50 mg tab(s) (TOPROL XL) 50 mg ORAL DAILY - gabapentin 100 mg cap(s) (NEURONTIN) 100 mg ORAL q 8 H - insulin lispro pen (rapid acting) (HumaLOG KWIKPEN) SUBCUTANEOUS w MEALS - glimepiride 4 mg tab(s) (AMARYL) 4 mg ORAL DAILY WITH BREAKFAST - metFORMIN 1,000 mg tab(s) (GLUCOPHAGE) 1,000 mg ORAL BID w MEALS - insulin glargine 10 Units pen (long acting) (LANTUS SOLOSTAR, BASAGLAR KWIKPEN) 10 Units SUBCUTANEOUS AT BEDTIME - ondansetron 4 mg tab(s) (ZOFRAN) 4 mg ORAL q 6 H PRN Or - ondansetron (PF) 4 mg injection (ZOFRAN) 4 mg INTRAVENOUS q 6 H PRN - polyethylene glycol 3350 17 g packet (MIRALAX, GLYCOLAX) 17 g ORAL DAILY PRN - docusate sodium 100 mg cap(s) (COLACE) 100 mg ORAL BID PRN - magnesium hydroxide 400 mg/5 mL 30 mL (MOM) 30 mL ORAL DAILY PRN - bisacodyl 10 mg suppository (DULCOLAX) 10 mg RECTAL DAILY PRN - atorvastatin 40 mg tab(s) (LIPITOR) 40 mg ORAL DAILY - lisinopril 10 mg tab(s) (ZESTRIL, PRINIVIL) 10 mg ORAL DAILY - levothyroxine 25 mcg tab(s) (SYNTHROID) 25 mcg ORAL DAILY - dextrose 40 % 15 g 15 g ORAL PRN Or - glucagon 1 mg injection (GLUCAGEN) 1 mg INTRAMUSCULAR PRN Or - dextrose 50% in water 25 mL syringe 12.5 g INTRAVENOUS PRN Labs: Recent Labs 09/09/19 0557 09/08/19 0446 NA 133* 133* K 4.0 3.9 CHLOR 100 102 CO2 24 24 BUN 23* 17 CREAT 0.73 0.71 GLUC 79 132* ANION 13 11 CA 8.9 8.7 MG 1.3* 1.2* P 3.1 3.0 WBC 12.29* 12.29* HB 8.8* 8.2* HCT 27.5* 27.0* PLT 505* 444* Exam: BP 128/55 Pulse 102 Temp 36.6 ?C (97.9 ?F) (Oral) Resp 18 Ht 177.8 cm (5' 10") Wt 87.7 kg (193 lb 5.5 oz) SpO2 98% BMI 27.74 kg/m? GENERAL: No distress, Alert NEURO: AANDOx3, CN II-XII grossly intact HEENT: normocephalic, atraumatic LUNGS: Unlabored breathing, on room mark CARDIAC: Tachycardic, BP as above ABDOMEN: Soft, non-tender, non-distended EXTREMITIES: knee immobilizer at bedside for RLE, krilex dressing with mild strike through, Incision c/d/i with luly in place, BKA with stump as400 [address] SKIN: Skin color, texture, turgor normal, No rashes or lesions ASSESSMENT AND PLAN: Active Hospital Problems Diagnosis Date Noted - Malnutrition of moderate degree (FORMERLY [facility]) 08/22/2019 - Gangrene of foot (HCC) 08/21/2019 - Diabetes (HCC) 08/21/2019 - HTN (hypertension) 08/21/2019 - Dyslipidemia 08/21/2019 - Hypothyroidism 08/21/2019 79 year old male with PMH of thyroid disease, HTN, dyslipidemia,claudicat ion, DM. 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 Antibiotics stopped 08/23, remains non-septic. 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 09/02 PVR R calf 0.51, R low thigh 0.74. 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 ? Plan: -?DIET HEART HEALTHY? 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 Dressing changed re-applied stump as400 consultant today. Knee immobilize q4hr - Pain control - PT/OT?recs:?acute rehab - [facility] ppx - Mobilization as able, out of bed to chair?as tolerated - PAD - continue statin?and aspirin - Dispo planning: awaiting precert to [facility] Discuss plan with Dr. Devin Prescott DO, URSZULA PGY-1 General Surgery Resident 09/09/2019 9:02 AM Pager below: Vascular AND Thoracic Surgery Service Pager: For questions or concerns Mon-Mon 6a-5p please page [phone]. After 5pm and on Weekends and Holidays, please page [phone] if in ICU or [phone] if on RNF. Normal [facility] Phosphorus Bloodon 03-23-202 0 Phosphate [Mass/Vol] 3.1 mg/dL Normal 2.5-4.9 [facility] Comment on above: Performed By: #### C BC1 #### [place] [id number] THERAPY NTon 09-09-2019 THERAPY NT HNO ID: [id number] Author: Ramón Obrien) Poppy Service: Physical Therapy Author Type: Geographical Historian Type: Therapy (PT/OT/Speech/Resp) Filed: 09/09/2019 11:36 AM Note Text: Attestation signed by Tori SantiagoPt) Santos at 09/09/2019 4:16 PM I reviewed and agree with the documentation corresponding to this therapy visit. SIGNATURE: Tori Graham, PT DATE: September 09, 2019 TIME: 4:16 PM Physical Therapy Treatment SERVICE DATE: 09/09/2019 SERVICE TIME: 1053 to 1119 ROOM: [place] [address] Recommended Discharge Disposition: Acute Rehab Recommended Discharge Disposition Comments: Pt is functioning far below his baseline level. He would benefit from intense rehabilitation program to mximize functional gains and aide in return to prior level of independence. Justification For Post Acute Needs: Anticipate patient will tolerate 3 hours of daily therapy at the time of admission to post-acute setting;Motivated PT Recommendations to Nursing: Sit at edge of bed;With assist of 1 person(stay with patient as precaution, fall risk) Device: (gait belt) PT 6 Clicks Score: 13 Precautions/Activity Restrictions: Weight Bearing Restrictions;Fall Risk;Lines/Tubes/Drain s Isolation Type: None Extremity With Weight Bearing Restricted: Right Lower Extremity Right Lower Extremity Weight Bearing Status: NWB ASSESSMENT : Patient presents with ongoing PT goals--patient continues to require maximal assist to perform sit to stand--patient with poor muscle activation on pushing/weight bearing LLE--patient unable to come to fully erect posture with sit to stands this date. Patient well below baseline functioning at this time. continue to recommend acute care to improve strength, ROM, balance,endurance, normalized gait pattern, and independence with mobility tasks to prior level of function for safe return to home activity. Patient Disposition at Start of Session: Supine in Bed;Call Singh in Reach Patient Disposition at End of Session: Supine in Bed;Call Singh in Reach Tolerated Full Session Pain Physical Therapy Problem List: Safety Deficits;Impaired Self Care;Decreased Activity Tolerance;Decreased Strength;Functional Mobility Impairment;Balance Impaired Patient /Caregiver Goals: Walk Goals for Plan of Care: Able to perform HEP with: Verbal Cues Only Transfer supine to/from sit with: Supervision Transfer sit to/from stand with: Minimal Assistance Ambulate with: Moderate Assistance Distance: 5' intervals Device: Wheeled Walker Progress Toward Goals: Progressing as expected Due To: generalized weakness Rehab Potential: Good PLAN: Treatment Frequency (times per week): 7(3-5) Current admission Treatment Interventions: Self Care / Home Management;Energy Conservation Training;Strengthening ;Functional Mobility Training;Balance Training Plan of Care developed with: Patient Additional personnel present during visit: Raiza Gutierres TREATMENT INTERVENTIONS: Therapy Diagnosis: Difficulty walking-musculoskeleta l;Muscle Weakness (generalized) Interventions Provided: Therapeutic Exercise (61112);Therapeutic Activity (43477) Therapeutic Exercise (22294) Treatment Minutes: 14 1 unit Skilled Intervention(s): bilateral LEs strengthening and ROM--ankle pumps LLE only, glut sets, quad sets, heel slides, hip ABD/ADD, hip adductor squeeze, SLR-x10 each--on RLE hold times of 10 seconds for quad sets to improve knee extension to be able to kb straight leg brace. Patient educated on importance of keeping right knee as straight as possible to reduce change of knee flexion contracture. Therapeutic Activity (18535) Treatment Minutes: 12 1 unit Skilled Intervention(s): Instructed patient in supine to and from sit pushing with upper extremities to sit up--cuing for proper rolling side, hand placement, proper pushing with UE and for trunk control. EOB sitting balance with emphasis on UE support at side, improve forward trunk leaning to reduce risk for retro loss of balance, Cuing for forward scooting to place left foot on ground for improved balance reactions. Instruction in sit to and from stand technique with proper hand placement and body positioning at edge of bed/chair--cuing for proper UE support, proper forward trunk leaning, proper LLE position close to body, rocking motion as needed to come to standing. Patient educated on proper breathing throughout therapy. Total Timed Code Treatment Minutes: 26 Total Treatment Time (minutes): 26 SUBJECTIVE: Current Hospital Course: Chart reviewed and no significant medical updates relevant to therapy were noted Reason for Physical Therapy Consult : treatment Relevant Past Medical History: thyroid, HTN, DM, claudication Patient Report: patient stated feeling ok, pain at 6/10 right now. 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 Entry To Home: Stairs;With Rail Number Of Stairs Into Home: 4 Number Of Stairs To Bed/Bath: 0 Tub/Shower Type: walk in shower Laundry: main level Equipment Owned: Rollator;Wheelchair Prior Functional Level: Required Assistance;Within Functional Limits Assistance Required With: Cleaning Prior Functional Level Comments: pt independent without devices and completed ADLs OBJECTIVE: CURRENT FUNCTIONAL STATUS: Current Functional Mobility Assist Level Additional Information Rolling Contact Guard Assistance Supine to Sit Minimal Assistance Sit to Supine Minimal Assistance Scooting Minimal Assistance Sit to Stand Maximal Assistance Stand to Sit Maximal Assistance Bed to Chair Toilet/Commode Gait Stairs Curb Step Car Transfer Balance: Static Sitting;Dynamic Sitting;Static Standing Static Sitting Balance: Good Patient able to maintain balance without handhold support, limited postural sway Dynamic Sitting Balance: Fair Patient accepts minimal challenge, able to maintain balance while turning head/trunk Static Standing Balance: Poor Patient requires handhold support and moderate to maximal assistance to maintain position Activity Tolerance: Sitting Activity;Standing Activity Sitting Activity: at EOB Sitting Activity Tolerance (in minutes): 10 Standing Activity: at FWW Standing Activity Tolerance (in minutes): 0.25 JH-HLM: 3: Sit at edge of bed Please see discipline specific clinical documentation flowsheet for complete details for this therapy evaluation/treatment. SIGNATURE: Ramón Mcwilliams PTA PATIENT NAME: Elizabeth Modi DATE: September 09, 2019 TIME: 11:28 AM Normal [facility] Basic Panelon 09-08-2019 Creatinine [Mass/Vol] 0.71 mg/dL Normal 0.67-1.17 [facility] Comment on above: Result Comment: Use of this assay is not recommended for patients undergoing treatment with phenindione, due to the potential for falsely depressed results. Performed By: #### P 8 #### [facility] [address] [place], [place] [address] Anion gap [Moles/Vol] 11 mmol/L Normal 8-16 [facility] Comment on above: Performed By: #### P 8 #### [facility] [address] [place], [place] [address] Calcium [Mass/Vol] 8.7 mg/dL Normal 8.5-10.1 [facility] Comment on above: Performed By: #### P 8 #### [address] [address] CO2 [Moles/Vol] 24 mmol/L Normal 21-32 [facility] Comment on above: Performed By: #### P 8 #### [facility] [address] [place], [place] [address] Glucose [Mass/Vol] 132 mg/dL High 70-99 [facility] Comment on above: Performed By: #### P 8 #### [facility] [address] [place], [place] [address] Urea nitrogen [Mass/Vol] 17 mg/dL Normal 7-18 [facility] Comment on above: Performed By: #### P 8 #### [facility] [address] [place], [place] [address] Chloride [Moles/Vol] 102 mmol/L Normal 98-107 [facility] Comment on above: Performed By: #### P 8 #### [facility] [address] [place], [place] [address] Potassium [Moles/Vol] 3.9 mmol/L Normal 3.5-5.1 [facility] Comment on above: Performed By: #### P 8 #### [address] [address] Sodium [Moles/Vol] 133 mmol/L Low 136-145 [facility] Comment on above: Performed By: #### P 8 #### [facility] [address] [place] [address] CONSULT PROGon 09-08-2019 CONSULT PROG HNO ID: [id number] Author: Hermila Gallegos Service: Endocrinology Author Type: Physician Type: Consult Progress Note Filed: 09/08/2019 1:57 PM Note Text: ENDOCRINOLOGY CONSULT PROGRESS NOTE SERVICE DATE: 09/08/2019 SERVICE TIME: 10:20 AM Subjective INTERVAL HPI: Pt followed for diabetes mellitus type 2 with complications. 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 Had LE angiogram on 08/26. Had right femoral endarterectomy on 09/01. Was in ICU, tr to floor on 09/02. 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 Pt has pain in right leg stump. No SOB, no nausea; no new events He denies fevers, chills, N/V/CP/SOB, or any other complaints this AM. Tolerating diet. He was able to sleep through the night. He uses a urinal to urinate and had a bowel movement yesterday, passes flatus. His pain is well controlled (rates it as 2 out of 10). He did not get out of bed. BS's improved DIET HEART HEALTHY Recent Labs 09/08/19 1102 09/08/19 0719 09/08/19 0446 09/07/19202009/07/19 0632 09/06/19 0545 GLUC -- -- 132* -- -- 147* -- 157* GLUCOSEMETER 245* 136* -- 234* < > -- < > -- < > = values in this interval not displayed. Current Facility-Administered Medications Medication Dose Route Frequency - ondansetron 4 mg tab(s) (ZOFRAN) 4 mg ORAL q 6 H PRN Or - ondansetron (PF) 4 mg injection (ZOFRAN) 4 mg INTRAVENOUS q 6 H PRN - polyethylene glycol 3350 17 g packet (MIRALAX, GLYCOLAX) 17 g ORAL DAILY PRN - docusate sodium 100 mg cap(s) (COLACE) 100 mg ORAL BID PRN - magnesium hydroxide 400 mg/5 mL 30 mL (MOM) 30 mL ORAL DAILY PRN - bisacodyl 10 mg suppository (DULCOLAX) 10 mg RECTAL DAILY PRN - atorvastatin 40 mg tab(s) (LIPITOR) 40 mg ORAL DAILY - lisinopril 10 mg tab(s) (ZESTRIL, PRINIVIL) 10 mg ORAL DAILY - levothyroxine 25 mcg tab(s) (SYNTHROID) 25 mcg ORAL DAILY - dextrose 40 % 15 g 15 g ORAL PRN Or - glucagon 1 mg injection (GLUCAGEN) 1 mg INTRAMUSCULAR PRN Or - dextrose 50% in water 25 mL syringe 12.5 g INTRAVENOUS PRN - gabapentin 100 mg cap(s) (NEURONTIN) 100 mg ORAL q 8 H - insulin lispro pen (rapid acting) (HumaLOG KWIKPEN) SUBCUTANEOUS w MEALS - glimepiride 4 mg tab(s) (AMARYL) 4 mg ORAL DAILY WITH BREAKFAST - metFORMIN 1,000 mg tab(s) (GLUCOPHAGE) 1,000 mg ORAL BID w MEALS - insulin glargine 10 Units pen (long acting) (LANTUS SOLOSTAR, BASAGLAR KWIKPEN) 10 Units SUBCUTANEOUS AT BEDTIME - insulin lispro 4 Units pen (rapid acting) (HumaLOG KWIKPEN) 4 Units SUBCUTANEOUS w MEALS - metoprolol succinate ER 50 mg tab(s) (TOPROL XL) 50 mg ORAL DAILY - acetaminophen 975 mg tab(s) (TYLENOL) 975 mg ORAL q 6 H - aspirin 81 mg chewable tab(s) 81 mg ORAL DAILY - heparin 5,000 Units injection 5,000 Units SUBCUTANEOUS q 12 H - calcium carbonate 1,000 mg chewable tab(s) (TUMS) 1,000 mg ORAL BID - morphine 2 mg injection 2 mg INTRAVENOUS q 4 H PRN - oxyCODONE IR 5 mg tab(s) (ROXICODONE) 5 mg ORAL q 4 H PRN Objective PHYSICAL EXAM: BP 137/56 Pulse 85 Temp (Src) 97.9 (Oral) Resp 18 Ht 5' 10" (1.78m) Wt 199 lb 4.7 oz (90.4kg) SpO2 99% BMI 28.60 kg/(m2). O2 Therapy: Room AirGeneral : no distress Lungs : CTA anteriorly Heart : RRR Abdomen soft, no masses Extremities: compression bandage and brace on R leg stump; dressing on left ankle lat ? DATA: Diagnostic tests reviewed for today's visit: Most recent labs and imaging results. Assessment/Plan Diabetes mellitus type 2, 37 years duration; uncontrolled with complications; HbA1c 9.8. Took insulin in past a few years ago. Started on prog Lantus 10 units qhs on 08/22. Contd home Rx, Metformin 1 gm bid and Glimepiride 4 mg po daily am. Still had hyperglycemia; added prandial humalog 4 units qac tid on 08/23 pm. BS high on 08/24 night; pt did not eat well (30%) and Humalog was held! BS high at hs on 08/26, >300; no pattern, denies having snack? Eating well and on Boost also, has juices occ! On Lantus/Humalog/oral agents. BS overall stable. NO JUICES reinforced. Held oral agents/Humalog on 09/01 am when npo. BS high post-op, was on D5NS. BS were high on 09/02, ? due to pain. Held meds on 09/03 am, pt made NPO; then diet resumed and BS > 200; Amaryl 2 mg given on 09/03 pm. Pt was NPO, went to OR on 09/04; was on IV D5NS, BS high post-op; IVF changed to 1/2 NS after OR; Amaryl 2 mg dose given last night. BS high, ate late but no Humalog given last night. Cont Metformin 1 gm bid, Glimepiride 4 mg po daily am, Lantus 10 units qhs and Humalog 4 units tid with SSI; BS high at noon; increase prandial humalog to 6 units tid qac 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; had B/L LE angiogram on 08/26 to determine definitive management (BKA vs AKA) Had Right femoral endarterectomy on 09/01. Had Right BKA revision on 09/04. PVD, had right common femoral endarterectomy on 09/01 HTN (hypertension) POA: Yes Assessment AND Plan: on Rx Dyslipidemia POA: Yes Assessment AND Plan: on Rx Hypothyroidism POA: Yes Assessment AND Plan: on LT4 Malnutrition of moderate degree (HCC) POA: Yes Assessment AND Plan: on Boost supplements SIGNATURE: Hermila Gallegos MD PATIENT NAME: Elizabeth Modi DATE: September 08, 2019 TIME: 1:57 PM PAGER: [phone] Normal [facility] Hemogramon 09-08-2019 Erythrocyte distribution width (RBC) [Ratio] 15.8 % High 11.6-14.4 [facility] Comment on above: Performed By: #### P 8 #### [facility] [address] [place], [place] [address] Hematocrit (Bld) [Volume fraction] 27.0 % Low 40.1-51.0 [facility] Comment on above: Performed By: #### P 8 #### [facility] [address] [place], [place] [address] Hemoglobin (Bld) [Mass/Vol] 8.2 g/dL Low 13.7-17.5 [facility] Comment on above: Performed By: #### P 8 #### [facility] [address] [place], [place] [address] MCH (RBC) [Entitic mass] 27.8 pg Normal 25.7-32.2 [facility] Comment on above: Performed By: #### P 8 #### [facility] [address] [place], [place] [address] MCHC (RBC) [Mass/Vol] 30.4 % Low 32.3-36.5 [facility] Comment on above: Performed By: #### P 8 #### [facility] [address] [place], [place] [address] MCV (RBC) [Entitic vol] 91.5 fL Normal 83.2-95.6 [facility] Comment on above: Performed By: #### P 8 #### [facility] [address] [place], [place] [address] Platelet mean volume (Bld) [Entitic vol] 10.2 fL Normal 8.7-12.0 [facility] Comment on above: Performed By: #### P 8 #### [facility] [address] [place], [place] [address] Platelets (Bld) [#/Vol] 444 thou/cmm High 141-365 [facility] Comment on above: Performed By: #### P 8 #### [facility] [address] [place], [place] [address] RBC (Bld) [#/Vol] 2.95 mil/cmm Low 4.63-6.08 [facility] Comment on above: Performed By: #### P 8 #### [facility] [address] [place], [place] [address] RDW SD 51.5 fl High 36.1-45.8 [facility] Comment on above: Performed By: #### P 8 #### [facility] [address] [place], [place] [address] WBC (Bld) [#/Vol] 12.29 thou/cmm High 4.23-9.07 [facility] Comment on above: Performed By: #### P 8 #### [facility] [address] [place] [id number] Magnesium Bloodon 09-08-2019 Magnesium [Mass/Vol] 1.2 mg/dL Low 1.6-2.6 [facility] Comment on above: Performed By: #### C BC1 #### [facility] [address] [place] [id number] PROGRESSon 09-08-2019 PROGRESS HNO ID: [id number] Author: Jennifer Crooks Service: Vascular Surgery Author Type: Resident Type: Progress Notes Filed: 09/08/2019 10:35 AM Note Text: Attestation signed by Gordo Figueroa at 09/09/2019 10:27 AM I personally saw and examined the patient on 09/08/2019. I reviewed the resident's note. I agree with the resident's assessment and plan unless otherwise noted. Vascular Surgery Progress Note SERVICE DATE: 09/08/2019 SUBJECTIVE: No acute events overnight. Reports pain moderately well controlled this am. Stump as400 consultant applied by [employer] yesterday. Knee immobilizer in place. Tolerating diet DIET HEART HEALTHY OBJECTIVE: Vitals: Temp (24hrs), Av.8 ?C (98.3 ?F), Min:36.5 ?C (97.7 ?F), Max:37.3 ?C (99.1 ?F) BP 119/85 Pulse 98 Temp 37.1 ?C (98.8 ?F) (Oral) Resp 16 Ht 177.8 cm (5' 10") Wt 90.4 kg (199 lb 4.7 oz) SpO2 96% BMI 28.60 kg/m? O2 Therapy: Room Air IANDO: Date 09/07/19 07 - 09/08/19 0659 09/08/19 07 - 09/09/19 0659 Shift 2021-3525 6140-4194 6483-1290 24 Hour Total 5475-5588 8194-1265 2357-7385 24 Hour Total INTAKE Shift Total OUTPUT Urine 526 043 2501 Void (ml) 665 033 1006 # of BMs Stool Incontinence 1 x 1 x Number of BMs 1 x 1 x Shift Total 044 370 7559 Weight (kg) 90 90 90.4 90.4 90.4 90.4 90.4 90.4 MEDICATIONS Current Facility-Administered Medications Medication Dose Route Frequency - oxyCODONE IR 5 mg tab(s) (ROXICODONE) 5 mg ORAL q 4 H PRN - morphine 2 mg injection 2 mg INTRAVENOUS q 4 H PRN - calcium carbonate 1,000 mg chewable tab(s) (TUMS) 1,000 mg ORAL BID - acetaminophen 975 mg tab(s) (TYLENOL) 975 mg ORAL q 6 H - aspirin 81 mg chewable tab(s) 81 mg ORAL DAILY - heparin 5,000 Units injection 5,000 Units SUBCUTANEOUS q 12 H - metoprolol succinate ER 50 mg tab(s) (TOPROL XL) 50 mg ORAL DAILY - insulin lispro 4 Units pen (rapid acting) (HumaLOG KWIKPEN) 4 Units SUBCUTANEOUS w MEALS - gabapentin 100 mg cap(s) (NEURONTIN) 100 mg ORAL q 8 H - insulin lispro pen (rapid acting) (HumaLOG KWIKPEN) SUBCUTANEOUS w MEALS - glimepiride 4 mg tab(s) (AMARYL) 4 mg ORAL DAILY WITH BREAKFAST - metFORMIN 1,000 mg tab(s) (GLUCOPHAGE) 1,000 mg ORAL BID w MEALS - insulin glargine 10 Units pen (long acting) (LANTUS SOLOSTAR, BASAGLAR KWIKPEN) 10 Units SUBCUTANEOUS AT BEDTIME - ondansetron 4 mg tab(s) (ZOFRAN) 4 mg ORAL q 6 H PRN Or - ondansetron (PF) 4 mg injection (ZOFRAN) 4 mg INTRAVENOUS q 6 H PRN - polyethylene glycol 3350 17 g packet (MIRALAX, GLYCOLAX) 17 g ORAL DAILY PRN - docusate sodium 100 mg cap(s) (COLACE) 100 mg ORAL BID PRN - magnesium hydroxide 400 mg/5 mL 30 mL (MOM) 30 mL ORAL DAILY PRN - bisacodyl 10 mg suppository (DULCOLAX) 10 mg RECTAL DAILY PRN - atorvastatin 40 mg tab(s) (LIPITOR) 40 mg ORAL DAILY - lisinopril 10 mg tab(s) (ZESTRIL, PRINIVIL) 10 mg ORAL DAILY - levothyroxine 25 mcg tab(s) (SYNTHROID) 25 mcg ORAL DAILY - dextrose 40 % 15 g 15 g ORAL PRN Or - glucagon 1 mg injection (GLUCAGEN) 1 mg INTRAMUSCULAR PRN Or - dextrose 50% in water 25 mL syringe 12.5 g INTRAVENOUS PRN Labs: Recent Labs 09/08/19 0446 09/07/19 0632 NA 133* 133* K 3.9 4.2 CHLOR 102 101 CO2 24 25 BUN 17 14 CREAT 0.71 0.84 GLUC 132* 147* ANION 11 11 CA 8.7 9.5 MG 1.2* 1.3* P 3.0 3.0 WBC 12.29* 12.27* HB 8.2* 9.8* HCT 27.0* 31.4* PLT 444* 519* Exam: BP 119/85 Pulse 98 Temp 37.1 ?C (98.8 ?F) (Oral) Resp 16 Ht 177.8 cm (5' 10") Wt 90.4 kg (199 lb 4.7 oz) SpO2 96% BMI 28.60 kg/m? GENERAL: No distress, Alert NEURO: AANDOx3, CN II-XII grossly intact HEENT: normocephalic, atraumatic LUNGS: Unlabored breathing CARDIAC: Regular rate ABDOMEN: Soft, non-tender, non-distended EXTREMITIES: knee immobilizer RLE, dressing c/d/i SKIN: Skin color, texture, turgor normal, No rashes or lesions ASSESSMENT AND PLAN: Active Hospital Problems Diagnosis Date Noted - Malnutrition of moderate degree (HCC) 08/22/2019 - Gangrene of foot (HCC) 08/21/2019 - Diabetes ([facility]) 08/21/2019 - HTN (hypertension) 08/21/2019 - Dyslipidemia 08/21/2019 - Hypothyroidism 08/21/2019 79 year old male with PMH of thyroid disease, HTN, dyslipidemia,claudicat ion, DM. 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 Antibiotics stopped 08/23, remains non-septic. 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 09/02 PVR R calf 0.51, R low thigh 0.74. 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 ? Plan: -?DIET HEART HEALTHY? -?now S/p revision to BKA ?Dressing taken down 09/06: healthy appearing incision- c/d/i with luly, no erythema or drainage, minimal edema, no bleeding. Will change dressing/re-apply stump as400 consultant today. - Pain control - PT/OT?recs:?acute rehab - [facility] ppx - Mobilization as able, out of bed to chair?as tolerated - PAD - continue statin?and aspirin - Dispo planning: awaiting precert to [facility] Addendum: (10:34 AM) Patient seen bedside with attending. Knee immobilizer/and dressing/stump as400 consultant taken down. Surgical incision appears healthy with minimal drainage. No erythema or bleeding. Luly intact. Dressing/stump as400 consultant reapplied. Will continue knee immobilizer q4H and while OOB. ? Vascular AND Thoracic Surgery Service Pager: For questions or concerns Mon-Mon 6a-5p please page [phone]. After 5pm and on Weekends and Holidays, please page [phone] if in ICU or [phone] if on RNF. SIGNATURE: Jennifer Crooks MD PATIENT NAME: Elizabeth Modi DATE: September 08, 2019 TIME: 6:45 AM Pager: Normal [facility] Phosphorus Bloodon 0 Phosphate [Mass/Vol] 3.0 mg/dL Normal 2.5-4.9 [facility] Comment on above: Performed By: #### C BC1 #### [place] [address] Basic Panelon 09-07-2019 Creatinine [Mass/Vol] 0.84 mg/dL Normal 0.67-1.17 [facility] Comment on above: Result Comment: Use of this assay is not recommended for patients undergoing treatment with phenindione, due to the potential for falsely depressed results. Performed By: #### F ERR #### [address] [address] Anion gap [Moles/Vol] 11 mmol/L Normal 8-16 [facility] Comment on above: Performed By: #### F ERR #### [address] [address] CO2 [Moles/Vol] 25 mmol/L Normal 21-32 [facility] Comment on above: Performed By: #### F ERR #### [address] [address] Glucose [Mass/Vol] 147 mg/dL High 70-99 [facility] Comment on above: Performed By: #### F ERR #### [address] [address] Urea nitrogen [Mass/Vol] 14 mg/dL Normal 7-18 [facility] Comment on above: Performed By: #### F ERR #### [facility] [address] [place], [place] [address] Calcium [Mass/Vol] 9.5 mg/dL Normal 8.5-10.1 [facility] Comment on above: Performed By: #### F ERR #### [facility] [address] [place], [place] [address] Chloride [Moles/Vol] 101 mmol/L Normal 98-107 [facility] Comment on above: Performed By: #### F ERR #### [facility] [address] [place], [place] [address] Potassium [Moles/Vol] 4.2 mmol/L Normal 3.5-5.1 [facility] Comment on above: Performed By: #### F ERR #### [facility] [address] [place], [place] [address] Sodium [Moles/Vol] 133 mmol/L Low 136-145 [facility] Comment on above: Performed By: #### F ERR #### [facility] [address] [place], [place] [address] CONSULT PROGon 09-07-2019 CONSULT PROG HNO ID: [id number] Author: Hermila Gallegos Service: Endocrinology Author Type: Physician Type: Consult Progress Note Filed: 09/07/2019 11:25 AM Note Text: ENDOCRINOLOGY CONSULT PROGRESS NOTE SERVICE DATE: 09/07/2019 SERVICE TIME: 11:22 AM Subjective INTERVAL HPI: Pt followed for diabetes mellitus type 2 with complications. 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 Had LE angiogram on 08/26. Had right femoral endarterectomy on 09/01. Was in ICU, tr to floor on 09/02. 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 Pt has pain in right leg stump. No SOB, no nausea; no new events DIET HEART HEALTHY OR yest Recent Labs 09/07/19 0707 09/07/19 0632 09/06/19202109/06/19 1610 09/06/19 0545 09/05/19 0545 GLUC -- 147* -- -- -- 157* -- 137* GLUCOSEMETER 169* -- 211* 198* < > -- < > -- < > = values in this interval not displayed. Current Facility-Administered Medications Medication Dose Route Frequency - ondansetron 4 mg tab(s) (ZOFRAN) 4 mg ORAL q 6 H PRN Or - ondansetron (PF) 4 mg injection (ZOFRAN) 4 mg INTRAVENOUS q 6 H PRN - polyethylene glycol 3350 17 g packet (MIRALAX, GLYCOLAX) 17 g ORAL DAILY PRN - docusate sodium 100 mg cap(s) (COLACE) 100 mg ORAL BID PRN - magnesium hydroxide 400 mg/5 mL 30 mL (MOM) 30 mL ORAL DAILY PRN - bisacodyl 10 mg suppository (DULCOLAX) 10 mg RECTAL DAILY PRN - atorvastatin 40 mg tab(s) (LIPITOR) 40 mg ORAL DAILY - lisinopril 10 mg tab(s) (ZESTRIL, PRINIVIL) 10 mg ORAL DAILY - levothyroxine 25 mcg tab(s) (SYNTHROID) 25 mcg ORAL DAILY - dextrose 40 % 15 g 15 g ORAL PRN Or - glucagon 1 mg injection (GLUCAGEN) 1 mg INTRAMUSCULAR PRN Or - dextrose 50% in water 25 mL syringe 12.5 g INTRAVENOUS PRN - gabapentin 100 mg cap(s) (NEURONTIN) 100 mg ORAL q 8 H - insulin lispro pen (rapid acting) (HumaLOG KWIKPEN) SUBCUTANEOUS w MEALS - glimepiride 4 mg tab(s) (AMARYL) 4 mg ORAL DAILY WITH BREAKFAST - metFORMIN 1,000 mg tab(s) (GLUCOPHAGE) 1,000 mg ORAL BID w MEALS - insulin glargine 10 Units pen (long acting) (LANTUS SOLOSTAR, BASAGLAR KWIKPEN) 10 Units SUBCUTANEOUS AT BEDTIME - insulin lispro 4 Units pen (rapid acting) (HumaLOG KWIKPEN) 4 Units SUBCUTANEOUS w MEALS - metoprolol succinate ER 50 mg tab(s) (TOPROL XL) 50 mg ORAL DAILY - acetaminophen 975 mg tab(s) (TYLENOL) 975 mg ORAL q 6 H - aspirin 81 mg chewable tab(s) 81 mg ORAL DAILY - heparin 5,000 Units injection 5,000 Units SUBCUTANEOUS q 12 H - calcium carbonate 1,000 mg chewable tab(s) (TUMS) 1,000 mg ORAL BID - morphine 2 mg injection 2 mg INTRAVENOUS q 4 H PRN - oxyCODONE IR 5 mg tab(s) (ROXICODONE) 5 mg ORAL q 4 H PRN Objective PHYSICAL EXAM: BP 129/51 Pulse 100 Temp (Src) 97.7 (Temporal) Resp 16 Ht 5' 10" (1.78m) Wt 198 lb 6.6 oz (90.0kg) SpO2 98% BMI 28.47 kg/(m2). O2 Therapy: Room AirGeneral : no distress Lungs : CTA anteriorly Heart : RRR Abdomen soft, no masses Extremities: compression bandage and brace on R leg stump; dressing on left ankle lat ? DATA: Diagnostic tests reviewed for today's visit: Most recent labs and imaging results. Assessment/Plan Diabetes mellitus type 2, 37 years duration; uncontrolled with complications; HbA1c 9.8. Took insulin in past a few years ago. Started on prog Lantus 10 units qhs on 08/22. Contd home Rx, Metformin 1 gm bid and Glimepiride 4 mg po daily am. Still had hyperglycemia; added prandial humalog 4 units qac tid on 08/23 pm. BS high on 08/24 night; pt did not eat well (30%) and Humalog was held! BS high at hs on 08/26, >300; no pattern, denies having snack? Eating well and on Boost also, has juices occ! On Lantus/Humalog/oral agents. BS overall stable. NO JUICES reinforced. Held oral agents/Humalog on 09/01 am when npo. BS high post-op, was on D5NS. BS were high on 09/02, ? due to pain. Held meds on 09/03 am, pt made NPO; then diet resumed and BS > 200; Amaryl 2 mg given on 09/03 pm. Pt was NPO, went to OR on 09/04; was on IV D5NS, BS high post-op; IVF changed to 1/2 NS after OR; Amaryl 2 mg dose given last night. BS high, ate late but no Humalog given last night. Cont Metformin 1 gm bid, Glimepiride 4 mg po daily am, Lantus 10 units qhs and Humalog 4 units tid with SSI. 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 Had Right BKA revision on 09/04. PVD, had right common femoral endarterectomy on 09/01 HTN (hypertension) POA: Yes Assessment AND Plan: on Rx Dyslipidemia POA: Yes Assessment AND Plan: on Rx Hypothyroidism POA: Yes Assessment AND Plan: on LT4 Malnutrition of moderate degree (HCC) POA: Yes Assessment AND Plan: on Boost supplements SIGNATURE: Hermila Gallegos MD PATIENT NAME: Elizabeth Modi DATE: September 07, 2019 TIME: 11:24 AM PAGER: [phone] Normal [facility] Hemogramon 09-07-2019 Erythrocyte distribution width (RBC) [Ratio] 16.1 % High 11.6-14.4 [facility] Comment on above: Performed By: #### M AG #### [place] [address] Hematocrit (Bld) [Volume fraction] 31.4 % Low 40.1-51.0 [facility] Comment on above: Performed By: #### M AG #### [place] [address] Hemoglobin (Bld) [Mass/Vol] 9.8 g/dL Low 13.7-17.5 [facility] Comment on above: Performed By: #### M AG #### [place] [address] MCH (RBC) [Entitic mass] 28.7 pg Normal 25.7-32.2 [facility] Comment on above: Performed By: #### M AG #### [address] [address] MCHC (RBC) [Mass/Vol] 31.2 % Low 32.3-36.5 [facility] Comment on above: Performed By: #### M AG #### [place] [address] MCV (RBC) [Entitic vol] 92.1 fL Normal 83.2-95.6 [facility] Comment on above: Performed By: #### M AG #### [facility] [address] [place], [place] [address] Platelet mean volume (Bld) [Entitic vol] 9.6 fL Normal 8.7-12.0 [facility] Comment on above: Performed By: #### M AG #### [facility] [address] [place], [place] [address] Platelets (Bld) [#/Vol] 519 thou/cmm High 141-365 [facility] Comment on above: Performed By: #### M AG #### [facility] [address] [place], [place] [address] RBC (Bld) [#/Vol] 3.41 mil/cmm Low 4.63-6.08 [facility] Comment on above: Performed By: #### M AG #### [facility] [address] [place] [address] RDW SD 53.3 fl High 36.1-45.8 [facility] Comment on above: Performed By: #### M AG #### [facility] [address] [place], [place] [address] WBC (Bld) [#/Vol] 12.27 thou/cmm High 4.23-9.07 [facility] Comment on above: Performed By: #### M AG #### [facility] [address] [place], [place] [address] Magnesium Bloodon 09-07-2019 Magnesium [Mass/Vol] 1.3 mg/dL Low 1.6-2.6 [facility] Comment on above: Performed By: #### F ERR #### [facility] [address] [place] [address] OPERATIVE NOon 09-07-2019 OPERATIVE NO HNO ID: [id number] Author: Ryan Allen Service: ? Author Type: Physician Type: Operative Report Filed: 09/09/2019 8:10 AM Note Text: [facility] - Operative Report ELIZABETH MODI : 1940 AGE: 79. SEX: M PATIENT TYPE: I HOSP SVC: KEENAN LOCATION: [facility] ATTENDING PHYSICIAN: JOVANNY HOLLOWAY NUMBER: [id number] DATE OF SURGERY/PROCEDURE: 09/05/2019 INCISION/PROCEDURE START TIME: 12:28 PM INCISION CLOSE/PROCEDURE END TIME: 2:14 PM PREOPERATIVE DIAGNOSIS: Gangrenous right lower extremity, status post guillotine amputation below the knee. POSTOPERATIVE DIAGNOSIS: Gangrenous right lower extremity, status post guillotine amputation below the knee. SURGEON: Ryan Allen MD, FACS GALVANOMETER ASSEMBLER: Tom Prescott DO, resident, also assistant store manager operations is Irvin Walker. SURGERY/PROCEDURE: Revision of a right below-knee amputation. ANESTHESIA: General HISTORY: This is a 79-year-old man who had been brought in over a week or 2 ago with a septic appearance and had a gangrenous left foot amputated in a guillotine fashion by Dr. Gordo Figueroa. He subsequently went on to have a common femoral endarterectomy and I believe patch angioplasty by Dr. Jovanny Parmar in an attempt to improve flow at least at the high-grade lesion at the femoral level. His post endarterectomy noninvasive testing indicated a pressure in the calf on the right side a little over 50 mmHg, but we felt that we should attempt a revision of the below-knee amputation given the fact that the wound overall did not appear to be significantly ischemic when we were changing the guillotine wound dressings. This was explained to the patient who conveyed this with his family and we proceeded electively. DESCRIPTION OF PROCEDURE: With consent being confirmed and time-out being done in its new or outside of the OR location, he was taken to the operating room where general anesthesia was induced. Prophylactic antibiotics were administered. We prepped and draped the right leg including the open wound with maximal barrier precaution. We planned for a 6 cm tibial stump 6 cm below the tibial tuberosity. We created a skin incision with a posterior flap with a scalpel and I used a Bovie in the subcutaneous tissues there except for few places were veins were ligated. The tibia was dissected out with both Bovie and blunt dissection. Tibial vessels were ligated as we came to them. We also dissected out the fibula. At that junction with the fibula and tibia exposed, we used the power saw to divide the tibia at 6 cm from the distal to the tibial tuberosity location and also used the oscillating [place] saw to divide the fibula slightly proximal to that. With the bones disrupted, at that juncture, amputation knife was used to create the rest of the posterior flap with the musculature. This was carried down to allow musculature at least as long as the skin flap. The remaining part of the lower extremity at that point was then taken off the table. Small vasculature that was oozing in the muscular flap was hemostat occluded and ties or suture ligatures were used in that region. We shaved off the anterior aspect of the tibia to make sure that there was a smooth surface there and also used the rasp at that level to smooth all sharp edges of the bone. The fibula was shortened considerably so would not be at a weightbearing position relative to the tibia. Fibula was shortened with an angled bone cutter. It was smoothed slightly with a rasp also. At that juncture, we irrigated the wound with several liters of warm saline. We shortened the muscular flap a little bit more with the amputation saw to give us a smooth but less bulky leg wound closure. We then brought the musculature up over the end of the tibia and sutured the fascia posteriorly to the fascia anteriorly giving us nice coverage over the tibia. The more superficial fascia was also closed along with minimal subcutaneous tissues with interrupted Vicryl. At that junction, we closed the skin with luly. Sponge and needle counts were correct at the end of the case. The patient tolerated procedure well. We had injected nerve structures with Marcaine using about 25 mL of Marcaine in those injections. With a sterile dressing applied, the patient was awakened from anesthesia and taken to recovery room in satisfactory postop condition. Ryan Allen MD, FACS RGN:[id number] /[id number] Normal [facility] PROGRESSon 09-07-2019 PROGRESS HNO ID: [id number] Author: Jennifer Crooks Service: Vascular Surgery Author Type: Resident Type: Progress Notes Filed: 09/07/2019 7:46 AM Note Text: Attestation signed by Gordo Figueroa at 09/07/2019 10:45 AM Attending Note I discussed with resident. The patient was not examined by the attending. I reviewed the resident's note. I agree with the resident's assessment and plan unless otherwise noted. Rounded on patient at approximately 1025. He was asleep and given his issues with pain yesterday and the fact that he had been given pain medication after the dressing changed I did not awaken him given the nature of the exam reported by my chief resident. See her plan for that discussion. We'll attempt to examine patient stump tomorrow. Signature: Gordo Figueroa MD Date: 09/07/2019. Time: 10:43 AM Vascular Surgery Progress Note SERVICE DATE: 09/07/2019 SUBJECTIVE: No acute events overnight. Reports some lower extremity pain today. Dressing taken down and changed this am. Knee immobilizer replaced. Tolerating diet DIET HEART HEALTHY OBJECTIVE: Vitals: Temp (24hrs), Av.7 ?C (98.1 ?F), Min:36.5 ?C (97.7 ?F), Max:37 ?C (98.6 ?F) BP 133/68 Pulse 103 Temp 36.5 ?C (97.7 ?F) (Temporal) Resp 16 Ht 177.8 cm (5' 10") Wt 90 kg (198 lb 6.6 oz) SpO2 97% BMI 28.47 kg/m? O2 Therapy: Room Air IANDO: Date 09/06/19699 - 09/07/1965809/07/19699 - 09/08/19 0659 Shift 5962-8241 6067-2509 4296-2642 24 Hour Total 8731-4606 7933-3505 9520-8458 24 Hour Total INTAKE Shift Total OUTPUT Urine 550 024 212 8961 Void (ml) 550 487 688 6679 Shift Total 550 798 438 4141 Weight (kg) 89.3 89.3 90 90 90 90 90 90 MEDICATIONS Current Facility-Administered Medications Medication Dose Route Frequency - oxyCODONE IR 5 mg tab(s) (ROXICODONE) 5 mg ORAL q 4 H PRN - morphine 2 mg injection 2 mg INTRAVENOUS q 4 H PRN - calcium carbonate 1,000 mg chewable tab(s) (TUMS) 1,000 mg ORAL BID - acetaminophen 975 mg tab(s) (TYLENOL) 975 mg ORAL q 6 H - aspirin 81 mg chewable tab(s) 81 mg ORAL DAILY - heparin 5,000 Units injection 5,000 Units SUBCUTANEOUS q 12 H - metoprolol succinate ER 50 mg tab(s) (TOPROL XL) 50 mg ORAL DAILY - insulin lispro 4 Units pen (rapid acting) (HumaLOG KWIKPEN) 4 Units SUBCUTANEOUS w MEALS - gabapentin 100 mg cap(s) (NEURONTIN) 100 mg ORAL q 8 H - insulin lispro pen (rapid acting) (HumaLOG KWIKPEN) SUBCUTANEOUS w MEALS - glimepiride 4 mg tab(s) (AMARYL) 4 mg ORAL DAILY WITH BREAKFAST - metFORMIN 1,000 mg tab(s) (GLUCOPHAGE) 1,000 mg ORAL BID w MEALS - insulin glargine 10 Units pen (long acting) (LANTUS SOLOSTAR, BASAGLAR KWIKPEN) 10 Units SUBCUTANEOUS AT BEDTIME - ondansetron 4 mg tab(s) (ZOFRAN) 4 mg ORAL q 6 H PRN Or - ondansetron (PF) 4 mg injection (ZOFRAN) 4 mg INTRAVENOUS q 6 H PRN - polyethylene glycol 3350 17 g packet (MIRALAX, GLYCOLAX) 17 g ORAL DAILY PRN - docusate sodium 100 mg cap(s) (COLACE) 100 mg ORAL BID PRN - magnesium hydroxide 400 mg/5 mL 30 mL (MOM) 30 mL ORAL DAILY PRN - bisacodyl 10 mg suppository (DULCOLAX) 10 mg RECTAL DAILY PRN - atorvastatin 40 mg tab(s) (LIPITOR) 40 mg ORAL DAILY - lisinopril 10 mg tab(s) (ZESTRIL, PRINIVIL) 10 mg ORAL DAILY - levothyroxine 25 mcg tab(s) (SYNTHROID) 25 mcg ORAL DAILY - dextrose 40 % 15 g 15 g ORAL PRN Or - glucagon 1 mg injection (GLUCAGEN) 1 mg INTRAMUSCULAR PRN Or - dextrose 50% in water 25 mL syringe 12.5 g INTRAVENOUS PRN Labs: Recent Labs 09/06/19 0545 09/05/19 0545 NA 136 136 K 4.4 4.1 CHLOR 106 105 CO2 24 26 BUN 14 17 CREAT 0.70 0.73 GLUC 157* 137* ANION 10 9 CA 8.1* 7.8* MG 1.5* 1.3* P 2.9 2.9 WBC 10.15* 9.06 HB 8.2* 8.1* HCT 26.4* 25.4* PLT 410* 387* Exam: BP 133/68 Pulse 103 Temp 36.5 ?C (97.7 ?F) (Temporal) Resp 16 Ht 177.8 cm (5' 10") Wt 90 kg (198 lb 6.6 oz) SpO2 97% BMI 28.47 kg/m? ASSESSMENT AND PLAN: Active Hospital Problems Diagnosis Date Noted - Malnutrition of moderate degree (HCC) 08/22/2019 - Gangrene of foot (HCC) 08/21/2019 - Diabetes (HCC) 08/21/2019 - HTN (hypertension) 08/21/2019 - Dyslipidemia 08/21/2019 - Hypothyroidism 08/21/2019 79 year old male with PMH of thyroid disease, HTN, dyslipidemia,claudicat ion, DM. 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 Antibiotics stopped 08/23, remains non-septic. 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 09/02 PVR R calf 0.51, R low thigh 0.74. 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 Plan: -?DIET HEART HEALTHY ??? 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 After 5pm and on Weekends and Holidays, please page [phone] if in ICU or [phone] if on RNF. SIGNATURE: Jennifer Crooks MD PATIENT NAME: Elizabeth Modi DATE: September 07, 2019 TIME: 6:39 AM Pager: Normal [facility] Phosphorus Bloodon 0 Phosphate [Mass/Vol] 3.0 mg/dL Normal 2.5-4.9 [facility] Comment on above: Performed By: #### C BC1 #### [place] [address] Basic Panelon 09-06-2019 Creatinine [Mass/Vol] 0.70 mg/dL Normal 0.67-1.17 [facility] Comment on above: Result Comment: Use of this assay is not recommended for patients undergoing treatment with phenindione, due to the potential for falsely depressed results. Performed By: #### C _ANA #### [place] [address] Anion gap [Moles/Vol] 10 mmol/L Normal 8-16 [facility] Comment on above: Performed By: #### C _ANA #### [place] [address] CO2 [Moles/Vol] 24 mmol/L Normal 21-32 [facility] Comment on above: Performed By: #### C _ANA #### [place] [address] Urea nitrogen [Mass/Vol] 14 mg/dL Normal 7-18 [facility] Comment on above: Performed By: #### C _ANA #### [place] [address] Calcium [Mass/Vol] 8.1 mg/dL Low 8.5-10.1 [facility] Comment on above: Performed By: #### C _ANA #### [address] [address] Glucose [Mass/Vol] 157 mg/dL High 70-99 [facility] Comment on above: Performed By: #### C _ANA #### [facility] [address] [place], [place] [address] Chloride [Moles/Vol] 106 mmol/L Normal 98-107 [facility] Comment on above: Performed By: #### C _ANA #### [facility] [address] [place], [place] [address] Potassium [Moles/Vol] 4.4 mmol/L Normal 3.5-5.1 [facility] Comment on above: Performed By: #### C _ANA #### [facility] [address] [place], [place] [address] Sodium [Moles/Vol] 136 mmol/L Normal 136-145 [facility] Comment on above: Performed By: #### C _ANA #### [place] [address] CASE MGT INIT ASSESon 2019 CASE MGT INIT [facility] HNO ID: [id number] Author: Tami SantiagoRn) KAVIN Patricio Service: Care Management Author Type: Registered Nurse Type: Care Mgt Initial Assessment Filed: 09/06/2019 2:24 PM Note Text: CARE MANAGEMENT PROGRESS NOTE SERVICE DATE: 09/06/2019 SERVICE TIME: 2:23 PM LOS: 16 days Chart reviewed. Plan for [facility] - precert pending. Pt will need cot for transport. Will follow. SIGNATURE: Tami Patricio RN PATIENT NAME: Elizabeth Modi DATE: September 06, 2019 TIME: 2:22 PM PAGER/CONTACT #: [phone] [facility] CONSULT PROGon 09-06-2019 CONSULT PROG HNO ID: [id number] Author: Luke Briones (Gurwinder) Sailaja Service: Wound/Ostomy Author Type: Nurse Practitioner Type: Consult Progress Note Filed: 09/06/2019 9:52 AM Note Text: WOUND CARE PROGRESS CARDIOGRAPHER NOTE SERVICE DATE: 09/06/2019 SERVICE TIME: 09:02 TIME SPENT (minutes): 30 REASON FOR CONSULT: Follow up wound care visit to assess pressure injury to left heel and abrasion to left ankle. CHIEF COMPLAINT: Patient with recent BKA to right side, newly found pressure injury to left heel. Subjective HISTORY OF PRESENT ILLNESS: Mr. Modi is a 79 year old male who is seen today with Zee Alba, Wound/continuous improvement manager, and presented to hospital with complaints of right foot gangrene. Patient underwent Guillotine BKA of right foot on 08/23/[address] Figueroa. Patient went back to OR on Monday09/02/19 for right femoral endartectomy, then for a BKA on right side on 09/05/19. Wound care following up for wound to left heel and left ankle. PERTINENT REVIEW OF SYSTEMS: GENERAL: Denies fever and chills PAIN ASSESSMENT: Admits to pain on right surgical site, but none to left heel SKIN: Admits to surgical wound on right leg. RESPIRATORY: Denies SOB or cough GI/: Denies nausea or vomiting PAST MEDICAL HISTORY Diagnosis Date - DM (diabetes mellitus) (HCC) - Dyslipidemia - HTN (hypertension) - Hypothyroidism History reviewed. No pertinent surgical history. Social History Tobacco Use - Smoking status: Former Smoker Types: Cigarettes - Smokeless tobacco: Never Used - Tobacco comment: STOPPED 28 YEARS AGO Substance Use Topics - Alcohol use: Yes Comment: OCCASIONAL - Drug use: Never History reviewed. No pertinent family history. MEDICATIONS: Current Facility-Administered Medications Medication Dose Route Frequency - ondansetron 4 mg tab(s) (ZOFRAN) 4 mg ORAL q 6 H PRN Or - ondansetron (PF) 4 mg injection (ZOFRAN) 4 mg INTRAVENOUS q 6 H PRN - polyethylene glycol 3350 17 g packet (MIRALAX, GLYCOLAX) 17 g ORAL DAILY PRN - docusate sodium 100 mg cap(s) (COLACE) 100 mg ORAL BID PRN - magnesium hydroxide 400 mg/5 mL 30 mL (MOM) 30 mL ORAL DAILY PRN - bisacodyl 10 mg suppository (DULCOLAX) 10 mg RECTAL DAILY PRN - atorvastatin 40 mg tab(s) (LIPITOR) 40 mg ORAL DAILY - lisinopril 10 mg tab(s) (ZESTRIL, PRINIVIL) 10 mg ORAL DAILY - levothyroxine 25 mcg tab(s) (SYNTHROID) 25 mcg ORAL DAILY - dextrose 40 % 15 g 15 g ORAL PRN Or - glucagon 1 mg injection (GLUCAGEN) 1 mg INTRAMUSCULAR PRN Or - dextrose 50% in water 25 mL syringe 12.5 g INTRAVENOUS PRN - gabapentin 100 mg cap(s) (NEURONTIN) 100 mg ORAL q 8 H - insulin lispro pen (rapid acting) (HumaLOG KWIKPEN) SUBCUTANEOUS w MEALS - glimepiride 4 mg tab(s) (AMARYL) 4 mg ORAL DAILY WITH BREAKFAST - metFORMIN 1,000 mg tab(s) (GLUCOPHAGE) 1,000 mg ORAL BID w MEALS - insulin glargine 10 Units pen (long acting) (LANTUS SOLOSTAR, BASAGLAR KWIKPEN) 10 Units SUBCUTANEOUS AT BEDTIME - insulin lispro 4 Units pen (rapid acting) (HumaLOG KWIKPEN) 4 Units SUBCUTANEOUS w MEALS - metoprolol succinate ER 50 mg tab(s) (TOPROL XL) 50 mg ORAL DAILY - acetaminophen 975 mg tab(s) (TYLENOL) 975 mg ORAL q 6 H - aspirin 81 mg chewable tab(s) 81 mg ORAL DAILY - heparin 5,000 Units injection 5,000 Units SUBCUTANEOUS q 12 H - calcium carbonate 1,000 mg chewable tab(s) (TUMS) 1,000 mg ORAL BID - morphine 2 mg injection 2 mg INTRAVENOUS q 4 H PRN - oxyCODONE IR 5 mg tab(s) (ROXICODONE) 5 mg ORAL q 4 H PRN ALLERGIES No Known Allergies Objective PHYSICAL EXAM: BP (!) 125/48 Pulse 82 Temp 36.6 ?C (97.9 ?F) (Oral) Resp 20 Ht 177.8 cm (5' 10") Wt 89.3 kg (196 lb 12.8 oz) SpO2 95% BMI 28.24 kg/m? General appearance: Alert and oriented male lying in hospital bed Respiratory: No shortness of breath or cough noted Extremities: Pressure injury to left heel, abrasion to left ankle, surgical wound to right BKA Integumentary: Pressure injury to left heel and abrasion to left ankle. Buttocks/coccyx intact. WOUND ASSESSMENT: Wound Type: Pressure - Resolving Deep tissue injury - Not present on admission Location: Left heel Present on admission: NO Measurement: 2 x 2 cm Wound Bed: intact, no opened ulcer Exudate: None Odor: none Periwound: intact S/S of infection: no Pain: 0/10 ? Wound Type: Abrasion Location: Left lateral ankle Present on admission: yes Measurement: 0.6 x 0.5 x 0 cm Wound Bed:dry, scabbed over Exudate: none Odor: none Periwound: intact S/S of infection: no Local pulse: palpable Pain: 0/10 ? Surgical dressing to right BKA- Vascular managing, thus not assessed today. Patient's buttocks/coccyx is intact. Wound Care Plan: Continue with truvue offloading heel boot for patient's left heel and seat cushion. Will reorder [id number] mattress as patient is still on regular mattress and turn and reposition every 2 hours or more often. A photo was taken of the patient's wound(s). Photos can be found under the Get Images tab on [employer]. Photos are uploaded by the wound skin care consultant and may not be immediately available for viewing. Contact the wound and ostomy care department with questions. SIGNATURE: Luke Menard APRN.NAIL ARTIST,CWOCN PATIENT NAME: Elizabeth Modi DATE: September 06, 2019 TIME: 9:45 AM CONTACT#: [id number] [facility] CONSULT PROG HNO ID: [id number] Author: Doris Eden Service: Endocrinology Author Type: Physician Type: Consult Progress Note Filed: 09/06/2019 7:59 AM Note Text: ENDOCRINOLOGY CONSULT PROGRESS NOTE SERVICE DATE: 09/06/2019 SERVICE TIME: 7:45 AM Subjective INTERVAL HPI: Pt followed for diabetes mellitus type 2 with complications. 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 Had LE angiogram on 08/26. Had right femoral endarterectomy on 09/01. Was in ICU, tr to floor on 09/02. 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 Pt has pain in right leg stump. Couldn't sleep well. No SOB, no nausea. DIET HEART HEALTHY For OR today Recent Labs 09/06/19 0545 09/05/19202709/05/19 1757 09/05/19 1437 09/05/19 0545 09/04/19 0435 GLUC 157* -- -- -- -- 137* -- 113* GLUCOSEMETER -- 186* 204* 133* < > -- < > -- < > = values in this interval not displayed. Current Facility-Administered Medications Medication Dose Route Frequency - ondansetron 4 mg tab(s) (ZOFRAN) 4 mg ORAL q 6 H PRN Or - ondansetron (PF) 4 mg injection (ZOFRAN) 4 mg INTRAVENOUS q 6 H PRN - polyethylene glycol 3350 17 g packet (MIRALAX, GLYCOLAX) 17 g ORAL DAILY PRN - docusate sodium 100 mg cap(s) (COLACE) 100 mg ORAL BID PRN - magnesium hydroxide 400 mg/5 mL 30 mL (MOM) 30 mL ORAL DAILY PRN - bisacodyl 10 mg suppository (DULCOLAX) 10 mg RECTAL DAILY PRN - atorvastatin 40 mg tab(s) (LIPITOR) 40 mg ORAL DAILY - lisinopril 10 mg tab(s) (ZESTRIL, PRINIVIL) 10 mg ORAL DAILY - levothyroxine 25 mcg tab(s) (SYNTHROID) 25 mcg ORAL DAILY - dextrose 40 % 15 g 15 g ORAL PRN Or - glucagon 1 mg injection (GLUCAGEN) 1 mg INTRAMUSCULAR PRN Or - dextrose 50% in water 25 mL syringe 12.5 g INTRAVENOUS PRN - gabapentin 100 mg cap(s) (NEURONTIN) 100 mg ORAL q 8 H - insulin lispro pen (rapid acting) (HumaLOG KWIKPEN) SUBCUTANEOUS w MEALS - glimepiride 4 mg tab(s) (AMARYL) 4 mg ORAL DAILY WITH BREAKFAST - metFORMIN 1,000 mg tab(s) (GLUCOPHAGE) 1,000 mg ORAL BID w MEALS - insulin glargine 10 Units pen (long acting) (LANTUS SOLOSTAR, BASAGLAR KWIKPEN) 10 Units SUBCUTANEOUS AT BEDTIME - insulin lispro 4 Units pen (rapid acting) (HumaLOG KWIKPEN) 4 Units SUBCUTANEOUS w MEALS - metoprolol succinate ER 50 mg tab(s) (TOPROL XL) 50 mg ORAL DAILY - acetaminophen 975 mg tab(s) (TYLENOL) 975 mg ORAL q 6 H - aspirin 81 mg chewable tab(s) 81 mg ORAL DAILY - heparin 5,000 Units injection 5,000 Units SUBCUTANEOUS q 12 H - calcium carbonate 1,000 mg chewable tab(s) (TUMS) 1,000 mg ORAL BID - morphine 2 mg injection 2 mg INTRAVENOUS q 4 H PRN - oxyCODONE IR 5 mg tab(s) (ROXICODONE) 5 mg ORAL q 4 H PRN Objective PHYSICAL EXAM: BP 125/48 Pulse 82 Temp (Src) 97.9 (Oral) Resp 20 Ht 5' 10" (1.78m) Wt 196 lb 12.8 oz (89.3kg) SpO2 95% BMI 28.24 kg/(m2). O2 Therapy: Room AirGeneral : no distress Lungs : CTA anteriorly Heart : RRR Abdomen soft, no masses Extremities: compression bandage and brace on R leg stump; dressing on left ankle lat ? DATA: Diagnostic tests reviewed for today's visit: Most recent labs and imaging results. Assessment/Plan Diabetes mellitus type 2, 37 years duration; uncontrolled with complications; HbA1c 9.8. Took insulin in past a few years ago. Started on prog Lantus 10 units qhs on 08/22. Contd home Rx, Metformin 1 gm bid and Glimepiride 4 mg po daily am. Still had hyperglycemia; added prandial humalog 4 units qac tid on 08/23 pm. BS high on 08/24 night; pt did not eat well (30%) and Humalog was held! BS high at hs on 08/26, >300; no pattern, denies having snack? Eating well and on Boost also, has juices occ! On Lantus/Humalog/oral agents. BS overall stable. NO JUICES reinforced. Held oral agents/Humalog on 09/01 am when npo. BS high post-op, was on D5NS. BS were high on 09/02, ? due to pain. Held meds on 09/03 am, pt made NPO; then diet resumed and BS > 200; Amaryl 2 mg given on 09/03 pm. Pt was NPO, went to OR on 09/04; was on IV D5NS, BS high post-op; IVF changed to 1/2 NS after OR; Amaryl 2 mg dose given last night. BS high, ate late but no Humalog given last night. Cont Metformin 1 gm bid, Glimepiride 4 mg po daily am, Lantus 10 units qhs and Humalog 4 units tid with SSI. 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; had B/L LE angiogram on 08/26 to determine definitive management (BKA vs AKA) Had Right femoral endarterectomy on 09/01. Had Right BKA revision on 09/04. PVD, had right common femoral endarterectomy on 09/01 HTN (hypertension) POA: Yes Assessment AND Plan: on Rx Dyslipidemia POA: Yes Assessment AND Plan: on Rx Hypothyroidism POA: Yes Assessment AND Plan: on LT4 Malnutrition of moderate degree (HCC) POA: Yes Assessment AND Plan: on Boost supplements Dr Gallegos #[id number] to cover from noon today till 09/08 am. SIGNATURE: Doris Eden MD PATIENT NAME: Elizabeth Modi DATE: September 06, 2019 TIME: 7:59 AM PAGER: [phone] Normal [facility] Hemogramon 09-06-2019 Erythrocyte distribution width (RBC) [Ratio] 16.2 % High 11.6-14.4 [facility] Comment on above: Performed By: #### F ERR #### [place] [address] Hematocrit (Bld) [Volume fraction] 26.4 % Low 40.1-51.0 [facility] Comment on above: Performed By: #### F ERR #### [place] [address] Hemoglobin (Bld) [Mass/Vol] 8.2 g/dL Low 13.7-17.5 [facility] Comment on above: Performed By: #### F ERR #### [address] [address] MCH (RBC) [Entitic mass] 28.5 pg Normal 25.7-32.2 [facility] Comment on above: Performed By: #### F ERR #### [address] [address] MCHC (RBC) [Mass/Vol] 31.1 % Low 32.3-36.5 [facility] Comment on above: Performed By: #### F ERR #### [address] [address] MCV (RBC) [Entitic vol] 91.7 fL Normal 83.2-95.6 [facility] Comment on above: Performed By: #### F ERR #### [facility] [address] [place] [address] Platelet mean volume (Bld) [Entitic vol] 9.7 fL Normal 8.7-12.0 [facility] Comment on above: Performed By: #### F ERR #### [facility] [address] [place] [address] Platelets (Bld) [#/Vol] 410 thou/cmm High 141-365 [facility] Comment on above: Performed By: #### F ERR #### [facility] [address] [place] [address] RBC (Bld) [#/Vol] 2.88 mil/cmm Low 4.63-6.08 [facility] Comment on above: Performed By: #### F ERR #### [place] [address] RDW SD 53.9 fl High 36.1-45.8 [facility] Comment on above: Performed By: #### F ERR #### [place] [address] WBC (Bld) [#/Vol] 10.15 thou/cmm High 4.23-9.07 [facility] Comment on above: Performed By: #### F ERR #### [place] [address] Magnesium Bloodon 09-06-2019 Magnesium [Mass/Vol] 1.5 mg/dL Low 1.6-2.6 [facility] Comment on above: Performed By: #### C _ANA #### [place] [address] NUTRITIONon 09-06-2019 NUTRITION HNO ID: [id number] Author: Tanja Byrne RD Service: Nutrition Therapy Author Type: Registered Dietitian Type: Nutrition Filed: 09/06/2019 12:59 PM Note Text: NUTRITION THERAPY REASSESSMENT NOTE SERVICE DATE: 09/06/2019 SERVICE TIME: 11:55 Nutrition Assessment: Recommended Malnutrition Diagnosis: Moderate Protein-Calorie Malnutrition In the context of: Acute Illness or Injury Based on: Subcutaneous Fat Loss;Muscle Loss Nutrition Diagnosis: Problem: Increased nutrient needs Related to: Acute illness As evidenced by: Medical condition;Depletion of fat/muscle stores Estimated kilocalorie needs: 5215-9390 Calorie Calculation Method: 30-35 kcals/kg Estimated protein needs (grams): 92-121 Grams protein determined by: 1.3-1.7 g/kg Care Plan: Continue current diet Supplements: Boost Glucose Control Monitor and Evaluation: Monitor labs, I/Os, vital signs, weight;Meet greater than 75% of estimated needs;Monitor fluid/electrolyte balance;Monitor bowel function Discharge Recommendations: Diet;Oral Supplements Diet: CARB control, low sodium Oral Supplements: Boost GC BID Interval History: S/P revision of prior guillotine amputation to femoral BKA 09/04. Endocrine follows. Intake History: Current Intake: Greater than 75% estimated energy needs over: 10 days. Patient reports appetite continues to improve. He ate most of his breakfast this morning. Drinks both Boost daily and agrees to continue. Current Diet: DIET HEART HEALTHY Anthropometrics: Height: 177.8 cm (5' 10") Weight: 89.3 kg (196 lb 12.8 oz) Dosing Weight: 71 kg (156 lb 8.4 oz)(adjusted IBW for R BKA) Body mass index is 28.24 kg/m?. Overweight Physical Exam: Subcutaneous fat loss: Mild Muscle loss: Moderate Potential micronutrient deficiency: No deficiency identified Edema/Ascites: No edema GI Symptoms: Constipation Functional Status: Regressed Potential Signs of Inflammation: Leukocytosis;Acute post-operative;Hypergl ycemia SIGNATURE: Tanja Byrne RD PATIENT NAME: Elizabeth Modi DATE: September 06, 2019 TIME: 9:53 AM PAGER: [phone] [facility] PROGRESSon 09-06-2019 PROGRESS HNO ID: [id number] Author: Tom Prescott DO Service: General Surgery Author Type: Resident Type: Progress Notes Filed: 09/06/2019 6:27 AM Note Text: Attestation signed by Ryan Allen at 09/06/2019 2:40 PM Attending Note I personally saw and examined the patient. I reviewed the resident's note. I agree with the resident's assessment and plan unless otherwise noted. Patient seen postop day #1, 09/06/19, seems to be in a little bit more pain than expected. According to the nurse has not had a lot of analgesics so far today. Discussed the scenario with the patient and his nurse about trying to improve pain medication. Hopefully takedown dressing tomorrow and evaluate stump. [employer] to visit for stump as400 consultant hopefully tomorrow as well Signature: Ryan Allen MD Date: 09/06/2019 Time: 2:39 PM Vascular Surgery Progress Note SERVICE DATE: 09/06/2019 Vascular AND Thoracic Surgery Service Pager: For questions or concerns Mon-Fri 6a-5p please page [phone]. After 5pm and on Weekends and Holidays, please page [phone] if in ICU or [phone] if on RNF. Subjective SUBJECTIVE: Patient seen and examined this am. States he has had a little pain, but feels it is well controlled currently. Notes he did not get much sleep last night. Denies N/v, F/C. Admits to flatus and BM in last 24hr. Objective OBJECTIVE: Vitals: Temp (24hrs), Av.7 ?C (98.1 ?F), Min:36.4 ?C (97.5 ?F), Max:37 ?C (98.6 ?F) BP (!) 125/48 Pulse 82 Temp 36.6 ?C (97.9 ?F) (Oral) Resp 20 Ht 177.8 cm (5' 10") Wt 89.3 kg (196 lb 12.8 oz) SpO2 95% BMI 28.24 kg/m? O2 Therapy: Room Air IANDO: Date 09/05/19 07 - 09/06/19 0659 09/06/19 07 - 09/07/19 0659 Shift 7203-0040 3846-4548 9449-8646 24 Hour Total 5466-4033 0708-7483 4302-2555 24 Hour Total INTAKE PO 240 240 480 PO 240 240 480 IV 750 100 850 OR Crystalloid intake (mL) 750 750 Volume (mL) (lactated ringers infusion) 100 100 Shift Total 750 980 194 2177 OUTPUT Urine 150 1100 1300 2550 Void (ml) 150 1100 1300 2550 OR Urine Output 0 0 # of BMs Number of BMs 1 x 1 x 2 x Blood 200 200 Estimated Blood loss 200 200 Shift Total 350 1100 1300 2750 Weight (kg) 88.2 88.2 89.3 89.3 89.3 89.3 89.3 89.3 MEDICATIONS Current Facility-Administered Medications Medication Dose Route Frequency - oxyCODONE IR 5 mg tab(s) (ROXICODONE) 5 mg ORAL q 4 H PRN - morphine 2 mg injection 2 mg INTRAVENOUS q 4 H PRN - calcium carbonate 1,000 mg chewable tab(s) (TUMS) 1,000 mg ORAL BID - acetaminophen 975 mg tab(s) (TYLENOL) 975 mg ORAL q 6 H - aspirin 81 mg chewable tab(s) 81 mg ORAL DAILY - heparin 5,000 Units injection 5,000 Units SUBCUTANEOUS q 12 H - metoprolol succinate ER 50 mg tab(s) (TOPROL XL) 50 mg ORAL DAILY - insulin lispro 4 Units pen (rapid acting) (HumaLOG KWIKPEN) 4 Units SUBCUTANEOUS w MEALS - gabapentin 100 mg cap(s) (NEURONTIN) 100 mg ORAL q 8 H - insulin lispro pen (rapid acting) (HumaLOG KWIKPEN) SUBCUTANEOUS w MEALS - glimepiride 4 mg tab(s) (AMARYL) 4 mg ORAL DAILY WITH BREAKFAST - metFORMIN 1,000 mg tab(s) (GLUCOPHAGE) 1,000 mg ORAL BID w MEALS - insulin glargine 10 Units pen (long acting) (LANTUS SOLOSTAR, BASAGLAR KWIKPEN) 10 Units SUBCUTANEOUS AT BEDTIME - ondansetron 4 mg tab(s) (ZOFRAN) 4 mg ORAL q 6 H PRN Or - ondansetron (PF) 4 mg injection (ZOFRAN) 4 mg INTRAVENOUS q 6 H PRN - polyethylene glycol 3350 17 g packet (MIRALAX, GLYCOLAX) 17 g ORAL DAILY PRN - docusate sodium 100 mg cap(s) (COLACE) 100 mg ORAL BID PRN - magnesium hydroxide 400 mg/5 mL 30 mL (MOM) 30 mL ORAL DAILY PRN - bisacodyl 10 mg suppository (DULCOLAX) 10 mg RECTAL DAILY PRN - atorvastatin 40 mg tab(s) (LIPITOR) 40 mg ORAL DAILY - lisinopril 10 mg tab(s) (ZESTRIL, PRINIVIL) 10 mg ORAL DAILY - levothyroxine 25 mcg tab(s) (SYNTHROID) 25 mcg ORAL DAILY - dextrose 40 % 15 g 15 g ORAL PRN Or - glucagon 1 mg injection (GLUCAGEN) 1 mg INTRAMUSCULAR PRN Or - dextrose 50% in water 25 mL syringe 12.5 g INTRAVENOUS PRN Labs: Recent Labs 09/06/19 0545 09/05/19 0545 NA 136 136 K 4.4 4.1 CHLOR 106 105 CO2 24 26 BUN 14 17 CREAT 0.70 0.73 GLUC 157* 137* ANION 10 9 CA 8.1* 7.8* MG 1.5* 1.3* P 2.9 2.9 WBC 10.15* 9.06 HB 8.2* 8.1* HCT 26.4* 25.4* PLT 410* 387* Exam: GENERAL: No distress, Alert NEURO: AANDOx3. HEENT: normocephalic, atraumatic LUNGS: Equal chest rise bilaterally, Unlabored breathing O2 Therapy: Room Air CARDIAC: Regular rate, BP as above ABDOMEN: Soft, non-tender, non-distended, no rebound or guarding EXTREMITIES: R groin incision c/d/i with glue, minimal swellingAND eccymosis, no hematoma. Right foot amputation-now formal BKA. Dressing C/D/I without evidence of oozing. Extremity warm. SKIN: Skin color, texture, turgor normal, No rashes or lesions ASSESSMENT AND PLAN: Active Hospital Problems Diagnosis Date Noted - Malnutrition of moderate degree (HCC) 08/22/2019 - Gangrene of foot ([facility]) 08/21/2019 - Diabetes (HCC) 08/21/2019 - HTN (hypertension) 08/21/2019 - Dyslipidemia 08/21/2019 - Hypothyroidism 08/21/2019 This is a 79 year old male with PMH of thyroid disease, HTN, dyslipidemia,claudicat ion, DM. 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 Antibiotics stopped 08/23, remains non-septic. 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 09/02 PVR R calf 0.51, R low thigh 0.74. 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 Dressing to be taken down tomorrow 09/06 Nori consult for stump as400 consultant 09/06 - Pain control - PT/OT recs: acute rehab - [facility] ppx - Mobilization as able, out of bed to chair?as tolerated - PAD - continue statin?and aspirin Tom Prescott DO, MBA PGY-1 General Surgery Resident 09/06/2019 6:27 AM Pager below: Vascular AND Thoracic Surgery Service Pager: For questions or concerns Mon-Fri 6a-5p please page [phone]. After 5pm and on Weekends and Holidays, please page [phone] if in ICU or [phone] if on RNF. Normal [facility] Phosphorus Bloodon 0 Phosphate [Mass/Vol] 2.9 mg/dL Normal 2.5-4.9 [facility] Comment on above: Performed By: #### M AG #### [facility] [address] [place] [address] THERAPY NTon 09-06-2019 THERAPY NT HNO ID: [id number] Author: Briana SantiagoOtr/Vickie Watson Service: Occupational Therapy Author Type: Occupational Therapist Type: Therapy (PT/OT/Speech/Resp) Filed: 09/06/2019 3:43 PM Note Text: Occupational Therapy Treatment SERVICE DATE: 09/06/2019 SERVICE TIME: 1519 to 1533 ROOM: [place] [address] Recommended Discharge Disposition: Acute Rehab Recommended Discharge Disposition Comments: Patient has a new RLE amputation/medical complexity and is independent, living alone at baseline. Would benefit from intensive rehab post acute to regain full independence with use of DME/adaptive techniques as needed in order to safely return home alone. Patient is highly motivated and participates well in therapy. Justification For Post Acute Needs: Anticipate patient will tolerate 3 hours of daily therapy at the time of admission to post-acute setting OT Recommendations to Nursing: Bedside Commode for Toileting;OOB for meals;With assist of 2 people Equipment: (gait belt, sit-pivot transfers) OT 6 Clicks Score: 16 Precautions/Activity Restrictions: Weight Bearing Restrictions;Fall Risk;Lines/Tubes/Drain s Isolation Type: None Extremity With Weight Bearing Restricted: Right Lower Extremity Right Lower Extremity Weight Bearing Status: NWB ASSESSMENT: Patient progressing with therapy, however limited by pain this p.m. Continues to require increased assist with all ADL's and functional transfers. Continue to recommend Acute Rehab at d/c for intensive therapies. Patient Disposition at Start of Session: Supine in Bed;Call Singh in Reach Patient Disposition at End of Session: Supine in Bed;Call Singh in Reach Tolerated Full Session Occupational Therapy Problem List: Safety Deficits;Impaired Self Care;Decreased Activity Tolerance;Decreased Strength;Functional Mobility Impairment;Balance Impaired Patient /Caregiver Goals: Go Home Goals for Plan of Care: Able to perform HEP with: Verbal Cues Only(UB strengthening program) Grooming with: Set Up(sitting in chair) Upper Body Bathing with: Supervision Upper Body Dressing with: Supervision Lower Body Bathing with: Modified Independent Lower Body Dressing with: Modified Independent Toilet Hygiene with: Minimal Assistance Chair Transfer with: Moderate Assistance(stand-pivot ) Toilet Transfer with: Moderate Assistance(BSC, stand-pivot) Tolerate (minutes of functional activity): 30 Functional Activity with: Minimal Assistance Additional Goal 1: patient will adhere to NWB RLE during self care and functional transfers. Additional Goal 2: pt will maximize upper body strength to increase transfers to min assist Demonstrate Competence With Education with: Independent(safety with self care) Transfer: (n/a) Progress Toward Goals: Progressing as expected Rehab Potential: Good PLAN: Treatment Frequency (times per week): 5(2-5) Current admission Treatment Interventions: Education;Self Care / Home Management;Energy Conservation Training;Strengthening ;Functional Mobility Training;Balance Training Plan of Care developed with: Patient TREATMENT INTERVENTIONS: Therapy Diagnosis: Reduced mobility-other;Decreas ed activities of daily living (ADL);Muscle Weakness (generalized);Unsteadi ness on feet;General symptoms and signs-other Interventions Provided: Self Long-Term Management ([id number]) Self Long-Term Management ([id number]) Treatment Minutes: 14 1 unit Skilled Intervention(s): Cues for sequencing in hygiene tasks, patient completed grooming tasks at edge of bed with minimal assist and cues for safety. Provided instruction, cuing and facilitation for upper body dressing, provided cues for proper sequencing for upper body dressing task. Provided patient with rest breaks secondary to fatigue. 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 Entry To Home: Stairs;With Rail Number Of Stairs Into Home: 4 Number Of Stairs To Bed/Bath: 0 Tub/Shower Type: walk in shower Laundry: main level Equipment Owned: Rollator;Wheelchair Prior Functional Level: Required Assistance;Within Functional Limits Assistance Required With: Cleaning Prior Functional Level Comments: pt independent without devices and completed ADLs OBJECTIVE: Cognition/Communicatio n Deficits Responsiveness: Alert Follows Commands: 3-step Commands Executive Function Deficits: Safety Awareness;Insight to Deficits Insight to Deficits: Minimal impairment Safety Awareness Deficit: Minimal impairment CURRENT FUNCTIONAL STATUS: Current Activities of Daily Living Assist Level Feeding Modified Independent Grooming Minimal Assistance(sitting at edge of bed) Bathing Upper Body Contact Guard Assistance(at edge of bed) Bathing Lower Body Maximal Assistance Dressing Upper Body Minimal Assistance Dressing Lower Body Maximal Assistance Toileting Maximal Assistance Instrumental Activities of Daily Living Assist Level Meal/Beverage Prep Light Cleaning Laundry Medication Management with Strategies Functional Mobility Assist Level Rolling Modified Independent Supine to Sit Minimal Assistance Sit to Supine Minimal Assistance Scooting Minimal Assistance Sit to Stand (pt declined) Stand to Sit Bed to Chair Toilet/Commode Functional Mobility Balance: Static Sitting Static Sitting Balance: Good Patient able to maintain balance without handhold support, limited postural sway Dynamic Sitting Balance: Fair Patient accepts minimal challenge, able to maintain balance while turning head/trunk Static Standing Balance: Poor Patient requires handhold support and moderate to maximal assistance to maintain position Dynamic Standing Balance: Poor Patient unable to accept challenge or move without loss of balance Activity Tolerance: Sitting Activity;Standing Activity Sitting Activity: edge of bed for bathing, grooming, dressing Sitting Activity Tolerance (in minutes): 20 Please see discipline specific clinical documentation flowsheet for complete details for this therapy evaluation/treatment. SIGNATURE: NADIR Meléndez/L PATIENT NAME: Elizabeth Modi DATE: September 06, 2019 TIME: 3:38 PM Normal [facility] THERAPY NT HNO ID: [id number] Author: Marilyn (Pt) Mark Service: Physical Therapy Author Type: Physical Therapist Type: Therapy (PT/OT/Speech/Resp) Filed: 09/06/2019 12:03 PM Note Text: Physical Therapy Treatment SERVICE DATE: 09/06/2019 SERVICE TIME: 1109 to 1119 ROOM: [place] [address] Recommended Discharge Disposition: Acute Rehab Recommended Discharge Disposition Comments: Pt is functioning far below his baseline level. He would benefit from intense rehabilitation program to mximize functional gains and aide in return to prior level of independence. Justification For Post Acute Needs: Anticipate patient will tolerate 3 hours of daily therapy at the time of admission to post-acute setting;Motivated PT Recommendations to Nursing: Not appropriate for OOB activity at this time(needs turning schedule due to noted skin breakdown on coccyx) Device: (gait belt) PT 6 Clicks Score: 13 Precautions/Activity Restrictions: Weight Bearing Restrictions;Fall Risk;Lines/Tubes/Drain s Isolation Type: None Extremity With Weight Bearing Restricted: Right Lower Extremity Right Lower Extremity Weight Bearing Status: NWB ASSESSMENT : Patient demonstrating increased pain in RLE during this PT session. Only agreeable to turning in bed at this time. Patient continues will continue to require skilled PT services in order to progress toward goals. Patient Disposition at Start of Session: Supine in Bed;Call Singh in Reach Patient Disposition at End of Session: Supine in Bed;Call Singh in Reach Tolerance Limited By Pain Physical Therapy Problem List: Safety Deficits;Impaired Self Care;Decreased Activity Tolerance;Decreased Strength;Functional Mobility Impairment;Balance Impaired Patient /Caregiver Goals: Walk Goals for Plan of Care: Able to perform HEP with: Verbal Cues Only Transfer supine to/from sit with: Supervision Transfer sit to/from stand with: Minimal Assistance Ambulate with: Moderate Assistance Distance: 5' intervals Device: Wheeled Walker Progress Toward Goals: Progressing as expected Due To: generalized weakness Rehab Potential: Good PLAN: Treatment Frequency (times per week): 7(3-5) Current admission Treatment Interventions: Self Care / Home Management;Energy Conservation Training;Strengthening ;Functional Mobility Training;Balance Training Plan of Care developed with: Patient TREATMENT INTERVENTIONS: Therapy Diagnosis: Difficulty walking-musculoskeleta l;Muscle Weakness (generalized) Interventions Provided: Therapeutic Activity (41530) Therapeutic Activity (32520) Treatment Minutes: 10 1 unit Skilled Intervention(s): Assisted patient in rolling in bed due to being on bed allen for bowel movement. Education with the importance of frequently turning while in the bed due to risk of skin breakdown on the bottom. Assisted patient in being positioned in bed with pillow under L bottom facing the R side of the room. Educated patient that he cannot stay on his back all day long and needs to be turned every 2 hours. RN informed about skin breakdown on bottom and pink pad patients bottom not protecting his coccyx. Educated RN about implementing a turning schedule Total Timed Code Treatment Minutes: 10 Total Treatment Time (minutes): 10 SUBJECTIVE: Current Hospital Course: Chart reviewed; Patient with R BKA revision on 09/05/2019 Reason for Physical Therapy Consult : treatment Relevant Past Medical History: thyroid, HTN, DM, claudication Patient Report: Patient reports pain in RLE. 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 Entry To Home: Stairs;With Rail Number Of Stairs Into Home: 4 Number Of Stairs To Bed/Bath: 0 Tub/Shower Type: walk in shower Laundry: main level Equipment Owned: Rollator;Wheelchair Prior Functional Level: Required Assistance;Within Functional Limits Assistance Required With: Cleaning Prior Functional Level Comments: pt independent without devices and completed ADLs OBJECTIVE: CURRENT FUNCTIONAL STATUS: Current Functional Mobility Assist Level Additional Information Rolling Minimal Assistance JH-HLM: 2: Bed activities / dependent transfer Please see discipline specific clinical documentation flowsheet for complete details for this therapy evaluation/treatment. SIGNATURE: Marilyn Flores PT PATIENT NAME: Elizabeth Modi DATE: September 06, 2019 TIME: 11:55 AM Normal [facility] ABO/Rh Confirmationon 2019 ABO group Nom (Bld) A Normal [facility] Comment on above: Performed By: #### G LMET #### [facility] [address] [place], [place] [address] RH Type Positive Normal [facility] Comment on above: Performed By: #### G LMET #### [facility] [address] [place], [place] [address] ANES [place] 09-05-2019 ANES POST HNO ID: [id number] Author: Sj Huizar Service: Anesthesiology Author Type: Physician Type: Anesthesia PostOp Filed: 09/05/2019 5:55 PM Note Text: POST ANESTHESIA EVALUATION NOTE SERVICE DATE: 09/05/2019 SERVICE TIME: 5:54 PM : 1940 Vitals: 09/05/19 1041 09/05/19 1427 09/05/19 1530 09/05/19 1616 Temp: 36.4 ?C (97.5 ?F) 36.7 ?C (98.1 ?F) 36.4 ?C (97.5 ?F) 37 ?C (98.6 ?F) 09/05/19 1515 09/05/19 1530 09/05/19 1535 09/05/19 1616 BP: 142/63 138/81 136/63 151/64 09/05/19 1515 09/05/19 1530 09/05/19 1535 09/05/19 1616 Pulse: 80 74 77 75 09/05/19 1515 09/05/19 1530 09/05/19 1535 09/05/19 1616 Resp: 17 16 15 18 09/05/19 1515 09/05/19 1530 09/05/19 1535 09/05/19 1616 SpO2: 98% 100% 100% 100% Validated Vital Signs: Yes POST ANES STATUS: No apparent anesthetic complications. The patient is appropriately hydrated with stable respiratory and cardiovascular status. Patient has safe and adequate airway control. The patient has appropriate pain relief and no significant post operative nausea or vomiting. The patient has achieved baseline mental status. Intra-Operative Events: No Significant Anesthesia Events Further assessment by Anesthesia Service: None Other Remarks: SIGNATURE: Sj Huizar DO PATIENT NAME: Elizabeth Modi DATE: September 05, 2019 TIME: 5:54 PM PAGER/CONTACT #: [phone] [facility] ANES PREOPon 09-05-2019 ANES PREOP HNO ID: [id number] Author: Al Pugh Service: Anesthesiology Author Type: Physician Type: Anesthesia PreOp Filed: 09/05/2019 11:42 AM Note Text: ANESTHESIOLOGY DAY OF SURGERY NOTE SERVICE DATE: 09/05/2019 SERVICE TIME: 11:39 AM : 1940 Procedure(s) (LRB): AMPUTATION REVISION BELOW KNEE (Right) Surgeon(s): Ryan Allen Estimated body mass index is 27.89 kg/m? as calculated from the following: Height as of this encounter: 177.8 cm (5' 10"). Weight as of this encounter: 88.2 kg (194 lb 6.4 oz). Most recent hematocrit and potassium results: Hematocrit 25.4 09/05/2019 Potassium 4.1 09/05/2019 ANES DOS/PREOP NOTE: Vitals: 09/05/19 0430 09/05/19 0620 09/05/19 0834 09/05/19 1041 BP: (!) 117/44 (!) 122/44 114/58 Pulse: 73 71 70 Resp: 18 18 16 Temp: 37.3 ?C (99.1 ?F) 36.8 ?C (98.2 ?F) 36.4 ?C (97.5 ?F) TempSrc: Oral Oral Temporal SpO2: 96% 96% 98% Weight: 88.2 kg (194 lb 6.4 oz) Height: ACTIVE PROBLEM LIST Gangrene of Foot (Hcc) Diabetes (Hcc) Htn (Hypertension) Dyslipidemia Hypothyroidism Malnutrition of Moderate Degree (Hcc) PAST MEDICAL HISTORY Diagnosis Date - DM (diabetes mellitus) (HCC) - Dyslipidemia - HTN (hypertension) - Hypothyroidism History reviewed. No pertinent surgical history. History reviewed. No pertinent family history. Social History: Social History Tobacco Use - Smoking status: Former Smoker Types: Cigarettes - Smokeless tobacco: Never Used - Tobacco comment: STOPPED 28 YEARS AGO Substance Use Topics - Alcohol use: Yes Comment: OCCASIONAL - Drug use: Never No current facility-administered medications on file prior to encounter. Current Outpatient Medications on File Prior to Encounter Medication Sig - atorvastatin (LIPITOR) 40 mg tablet Take 40 mg by mouth once daily. - levothyroxine (SYNTHROID) 25 mcg tablet Take 25 mcg by mouth once daily. - lisinopril (ZESTRIL, PRINIVIL) 10 mg tablet Take 10 mg by mouth once daily. - pioglitazone (ACTOS) 30 mg tablet Take 30 mg by mouth once daily. - metFORMIN (GLUCOPHAGE) 1,000 mg tablet Take 1,000 mg by mouth twice daily. - glimepiride (AMARYL) 4 mg tablet Take 4 mg by mouth twice daily. Current Facility-Administered Medications Medication Dose Route Frequency Provider Last Rate Last Dose - [MAR Hold due to Transfer] potassium phosphate 30 mmol in NaCl 0.9% 250 mL 30 mmol INTRAVENOUS ONCE Francine (Res) Phyllis 41.7 mL/hr at 09/05/19 0617 30 mmol at 09/05/19 0617 - [MAR Hold due to Transfer] oxyCODONE IR 5 mg tab(s) (ROXICODONE) 5 mg ORAL q 6 H PRN Francine (Res) Phyllis 5 mg at 09/04/19 1304 - [MAR Hold due to Transfer] calcium carbonate 1,000 mg chewable tab(s) (TUMS) 1,000 mg ORAL BID Francine (Res) Phyllis 1,000 mg at 09/04/192131 - [MAR Hold due to Transfer] dextrose 5% in NaCl 0.9% iv infusion 100 mL/hr INTRAVENOUS CONTINUOUS Francine (Res) Phyllis 100 mL/hr at 09/04/19 2336 100 mL/hr at 09/04/19 2336 - [MAR Hold due to Transfer] acetaminophen 975 mg tab(s) (TYLENOL) 975 mg ORAL q 6 H Francine (Res) Phyllis 975 mg at 09/05/19 0538 - [MAR Hold due to Transfer] aspirin 81 mg chewable tab(s) 81 mg ORAL DAILY Francine (Res) Phyllis 81 mg at 09/04/19 0852 - [MAR Hold due to Transfer] heparin 5,000 Units injection 5,000 Units SUBCUTANEOUS q 12 H Francine (Res) Phyllis 5,000 Units at 09/04/192131 - [MAR Hold due to Transfer] metoprolol succinate ER 50 mg tab(s) (TOPROL XL) 50 mg ORAL DAILY Francine (Res) Phyllis 50 mg at 09/05/19 0835 - [MAR Hold due to Transfer] insulin lispro 4 Units pen (rapid acting) (HumaLOG KWIKPEN) 4 Units SUBCUTANEOUS w MEALS Francine (Res) Phyllis 4 Units at 09/04/19 1812 - [MAR Hold due to Transfer] gabapentin 100 mg cap(s) (NEURONTIN) 100 mg ORAL q 8 H Francine (Res) Phyllis 100 mg at 09/05/19 0538 - [MAR Hold due to Transfer] insulin lispro pen (rapid acting) (HumaLOG KWIKPEN) SUBCUTANEOUS w MEALS Francine (Res) Phyllis 4 Units at 09/04/19 1813 - [MAR Hold due to Transfer] glimepiride 4 mg tab(s) (AMARYL) 4 mg ORAL DAILY WITH BREAKFAST Francine (Res) Phyllis 4 mg at 09/03/19 0755 - [MAR Hold due to Transfer] metFORMIN 1,000 mg tab(s) (GLUCOPHAGE) 1,000 mg ORAL BID w MEALS Francine (Res) Phyllis 1,000 mg at 09/04/19 1724 - [MAR Hold due to Transfer] insulin glargine 10 Units pen (long acting) (LANTUS SOLOSTAR, BASAGLAR KWIKPEN) 10 Units SUBCUTANEOUS AT BEDTIME Francine (Res) Phyllis 10 Units at 09/04/192131 - [MAR Hold due to Transfer] ondansetron 4 mg tab(s) (ZOFRAN) 4 mg ORAL q 6 H PRN Francine (Res) Phyllis Or - [MAR Hold due to Transfer] ondansetron (PF) 4 mg injection (ZOFRAN) 4 mg INTRAVENOUS q 6 H PRN Francine (Res) Phyllis - [MAR Hold due to Transfer] polyethylene glycol 3350 17 g packet (MIRALAX, GLYCOLAX) 17 g ORAL DAILY PRN Francine (Res) Phyllis - [MAR Hold due to Transfer] docusate sodium 100 mg cap(s) (COLACE) 100 mg ORAL BID PRN Francine (Res) Phyllis - [MAR Hold due to Transfer] magnesium hydroxide 400 mg/5 mL 30 mL (MOM) 30 mL ORAL DAILY PRN Francine (Res) Phyllis - [MAR Hold due to Transfer] bisacodyl 10 mg suppository (DULCOLAX) 10 mg RECTAL DAILY PRN Francine (Res) Phyllis - [MAR Hold due to Transfer] atorvastatin 40 mg tab(s) (LIPITOR) 40 mg ORAL DAILY Francine (Res) Phyllis 40 mg at 09/04/19 2132 - [MAR Hold due to Transfer] lisinopril 10 mg tab(s) (ZESTRIL, PRINIVIL) 10 mg ORAL DAILY Francine (Res) Phyllis 10 mg at 09/04/19 0852 - [MAR Hold due to Transfer] levothyroxine 25 mcg tab(s) (SYNTHROID) 25 mcg ORAL DAILY Francine (Res) Phyllis 25 mcg at 09/05/19 0538 - [MAR Hold due to Transfer] dextrose 40 % 15 g 15 g ORAL PRN Francine (Res) Phyllis Or - [MAR Hold due to Transfer] glucagon 1 mg injection (GLUCAGEN) 1 mg INTRAMUSCULAR PRN Francine (Res) Phyllis Or - [MAR Hold due to Transfer] dextrose 50% in water 25 mL syringe 12.5 g INTRAVENOUS PRN Francine (Res) Phyllis Allergies: ALLERGIES No Known Allergies DOS EXAM: Adequate NPO Status: Yes Anesthetic Risks, Benefits, Alternatives, Personnel and Consent Discussed: Yes Patient agrees to proceed: Yes Previous Anesthesia: No history of adverse event Airway Assessment: MP 2; Neck ROM: Full ROM without neurologic symptoms; Airway Evaluation: No significant abnormalities Symptoms of Sleep Apnea: Hypertension, Age over 50 (79 year old) and Male gender Dentition: Poor dentition Multiple missing teeth Chipped, loose and/or missing Additional Physical Exam: Lungs: Patient health status unchanged since recent history and physical. See history and physical for exam findings. Cardiac: Patient health status unchanged since recent history and physical. See history and physical for exam findings. Additional Pertinent Findings: N/A Blood Products: Will accept Blood/Blood Products Anesthetic Plan: General Anesthetic Monitoring: Standard ASA Monitors Pain Management Plan: Parenteral or Oral ASA Class: 3 Other Medical Problems: None Chronic Beta Nicole medication administered within 24 hours: N/A I have interviewed and examined the patient. I have reviewed the medical record and/or the pre-anesthesia evaluation, pertinent labs, and test results. Significant changes in the patient's condition since the History and Physical, not otherwise documented in primary service progress notes: No This contains updated information obtained within 48 hours of Surgery/Procedure. SIGNATURE: Al Pugh MD PATIENT NAME: Elizabeth Modi DATE: September 05, 2019 TIME: 11:39 AM CSN: [id number] [facility] BRIEF OP NOTon 09-05-2019 BRIEF OP NOT HNO ID: [id number] Author: Tom Prescott DO Service: General Surgery Author Type: Resident Type: Brief Op Note Filed: 09/05/2019 2:33 PM Note Text: Attestation signed by Ryan Allen at 09/05/2019 5:38 PM Attending Note I personally saw and examined the patient. I reviewed the resident's note. I agree with the resident's assessment and plan unless otherwise noted. 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 After 5pm and on Weekends and Holidays, please page [phone] if in ICU or [phone] if on RNF. Normal [facility] Basic Panelon 09-05-2019 Creatinine [Mass/Vol] 0.73 mg/dL Normal 0.67-1.17 [facility] Comment on above: Result Comment: Use of this assay is not recommended for patients undergoing treatment with phenindione, due to the potential for falsely depressed results. Performed By: #### F ERR #### [address] [address] Anion gap [Moles/Vol] 9 mmol/L Normal 8-16 [facility] Comment on above: Performed By: #### F ERR #### [address] [address] Calcium [Mass/Vol] 7.8 mg/dL Low 8.5-10.1 [facility] Comment on above: Performed By: #### F ERR #### [address] [address] CO2 [Moles/Vol] 26 mmol/L Normal 21-32 [facility] Comment on above: Performed By: #### F ERR #### [address] [address] Glucose [Mass/Vol] 137 mg/dL High 70-99 [facility] Comment on above: Performed By: #### F ERR #### [address] [address] Urea nitrogen [Mass/Vol] 17 mg/dL Normal 7-18 [facility] Comment on above: Performed By: #### F ERR #### [facility] [address] [place], [place] [address] Chloride [Moles/Vol] 105 mmol/L Normal 98-107 [facility] Comment on above: Performed By: #### F ERR #### [facility] [address] [place], [place] [address] Potassium [Moles/Vol] 4.1 mmol/L Normal 3.5-5.1 [facility] Comment on above: Performed By: #### F ERR #### [facility] [address] [place], [place] [address] Sodium [Moles/Vol] 136 mmol/L Normal 136-145 [facility] Comment on above: Performed By: #### F ERR #### [facility] [address] [place], [place] [address] CONSULT PROGon 09-05-2019 CONSULT PROG HNO ID: [id number] Author: Doris Eden Service: Endocrinology Author Type: Physician Type: Consult Progress Note Filed: 09/05/2019 8:01 AM Note Text: ENDOCRINOLOGY CONSULT PROGRESS NOTE SERVICE DATE: 09/05/2019 SERVICE TIME: 7:50 AM Subjective INTERVAL HPI: Pt followed for diabetes mellitus type 2 with complications. 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 Had LE angiogram on 08/26. Had right femoral endarterectomy on 09/01. Was in ICU, tr to floor on 09/02. Plan for right BKA today. Pt has occ pain. No SOB, no nausea. PT following. DIET NPO For OR today Recent Labs 09/05/19 0545 09/04/19 2036 09/04/19 1619 09/04/19 1122 09/04/19 0435 09/03/19 0605 GLUC 137* -- -- -- -- 113* -- 135* GLUCOSEMETER -- 98 204* 99 < > -- < > -- < > = values in this interval not displayed. Current Facility-Administered Medications Medication Dose Route Frequency - ondansetron 4 mg tab(s) (ZOFRAN) 4 mg ORAL q 6 H PRN Or - ondansetron (PF) 4 mg injection (ZOFRAN) 4 mg INTRAVENOUS q 6 H PRN - polyethylene glycol 3350 17 g packet (MIRALAX, GLYCOLAX) 17 g ORAL DAILY PRN - docusate sodium 100 mg cap(s) (COLACE) 100 mg ORAL BID PRN - magnesium hydroxide 400 mg/5 mL 30 mL (MOM) 30 mL ORAL DAILY PRN - bisacodyl 10 mg suppository (DULCOLAX) 10 mg RECTAL DAILY PRN - atorvastatin 40 mg tab(s) (LIPITOR) 40 mg ORAL DAILY - lisinopril 10 mg tab(s) (ZESTRIL, PRINIVIL) 10 mg ORAL DAILY - levothyroxine 25 mcg tab(s) (SYNTHROID) 25 mcg ORAL DAILY - dextrose 40 % 15 g 15 g ORAL PRN Or - glucagon 1 mg injection (GLUCAGEN) 1 mg INTRAMUSCULAR PRN Or - dextrose 50% in water 25 mL syringe 12.5 g INTRAVENOUS PRN - gabapentin 100 mg cap(s) (NEURONTIN) 100 mg ORAL q 8 H - insulin lispro pen (rapid acting) (HumaLOG KWIKPEN) SUBCUTANEOUS w MEALS - glimepiride 4 mg tab(s) (AMARYL) 4 mg ORAL DAILY WITH BREAKFAST - metFORMIN 1,000 mg tab(s) (GLUCOPHAGE) 1,000 mg ORAL BID w MEALS - insulin glargine 10 Units pen (long acting) (LANTUS SOLOSTAR, BASAGLAR KWIKPEN) 10 Units SUBCUTANEOUS AT BEDTIME - insulin lispro 4 Units pen (rapid acting) (HumaLOG KWIKPEN) 4 Units SUBCUTANEOUS w MEALS - metoprolol succinate ER 50 mg tab(s) (TOPROL XL) 50 mg ORAL DAILY - acetaminophen 975 mg tab(s) (TYLENOL) 975 mg ORAL q 6 H - aspirin 81 mg chewable tab(s) 81 mg ORAL DAILY - heparin 5,000 Units injection 5,000 Units SUBCUTANEOUS q 12 H - oxyCODONE IR 5 mg tab(s) (ROXICODONE) 5 mg ORAL q 6 H PRN - calcium carbonate 1,000 mg chewable tab(s) (TUMS) 1,000 mg ORAL BID - dextrose 5% in NaCl 0.9% iv infusion 100 mL/hr INTRAVENOUS CONTINUOUS - potassium phosphate 30 mmol in NaCl 0.9% 250 mL 30 mmol INTRAVENOUS ONCE Objective PHYSICAL EXAM: BP 117/44 Pulse 73 Temp (Src) 99.1 (Oral) Resp 18 Ht 5' 10" (1.78m) Wt 194 lb 6.4 oz (88.2kg) SpO2 96% BMI 27.89 kg/(m2). O2 Therapy: Room AirGeneral : no distress Lungs : CTA anteriorly Heart : RRR Abdomen soft, no masses Extremities: dressing on R leg stump; dressing on left ankle lat ? DATA: Diagnostic tests reviewed for today's visit: Most recent labs and imaging results. Assessment/Plan Diabetes mellitus type 2, 37 years duration; uncontrolled with complications; HbA1c 9.8. Took insulin in past a few years ago. Started on prog Lantus 10 units qhs on 08/22. Contd home Rx, Metformin 1 gm bid and Glimepiride 4 mg po daily am. Still had hyperglycemia; added prandial humalog 4 units qac tid on 08/23 pm. BS high on 08/24 night; pt did not eat well (30%) and Humalog was held! BS high at hs on 08/26, >300; no pattern, denies having snack? Eating well and on Boost also, has juices occ! On Lantus/Humalog/oral agents. BS overall stable. NO JUICES reinforced. Held oral agents/Humalog on 09/01 am when npo. BS high post-op, was on D5NS. BS were high on 09/02, ? due to pain. Held meds on 09/03 am, pt made NPO; then diet resumed and BS > 200; Amaryl 2 mg given on 09/03 pm. For OR today. 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 Plan for Right BKA today. PVD, had right common femoral endarterectomy on 09/01 HTN (hypertension) POA: Yes Assessment AND Plan: on Rx Dyslipidemia POA: Yes Assessment AND Plan: on Rx Hypothyroidism POA: Yes Assessment AND Plan: on LT4 Malnutrition of moderate degree (HCC) POA: Yes Assessment AND Plan: on Boost supplements SIGNATURE: Doris Eden MD PATIENT NAME: Elizabeth Modi DATE: September 05, 2019 TIME: 8:01 AM PAGER: [phone] Normal [facility] Hemogramon 09-05-2019 Erythrocyte distribution width (RBC) [Ratio] 16.0 % High 11.6-14.4 [facility] Comment on above: Performed By: #### G LMET #### [facility] [address] [place] [address] Hematocrit (Bld) [Volume fraction] 25.4 % Low 40.1-51.0 [facility] Comment on above: Performed By: #### G LMET #### [place] [address] Hemoglobin (Bld) [Mass/Vol] 8.1 g/dL Low 13.7-17.5 [facility] Comment on above: Performed By: #### G LMET #### [place] [address] MCH (RBC) [Entitic mass] 29.1 pg Normal 25.7-32.2 [facility] Comment on above: Performed By: #### G LMET #### [place] [address] MCHC (RBC) [Mass/Vol] 31.9 % Low 32.3-36.5 [facility] Comment on above: Performed By: #### G LMET #### [place] [address] MCV (RBC) [Entitic vol] 91.4 fL Normal 83.2-95.6 [facility] Comment on above: Performed By: #### G LMET #### [facility] [address] [place] [address] Platelet mean volume (Bld) [Entitic vol] 9.7 fL Normal 8.7-12.0 [facility] Comment on above: Performed By: #### G LMET #### [place] [id number] Platelets (Bld) [#/Vol] 387 thou/cmm High 141-365 [facility] Comment on above: Performed By: #### G LMET #### [facility] [address] [place] [id number] RBC (Bld) [#/Vol] 2.78 mil/cmm Low 4.63-6.08 [facility] Comment on above: Performed By: #### G LMET #### [facility] [address] [place] [address] RDW SD 52.4 fl High 36.1-45.8 [facility] Comment on above: Performed By: #### G LMET #### [facility] [address] [place] [id number] WBC (Bld) [#/Vol] 9.06 thou/cmm Normal 4.23-9.07 [facility] Comment on above: Performed By: #### G LMET #### [facility] [address] [place] [address] Magnesium Bloodon 09-05-2019 Magnesium [Mass/Vol] 1.3 mg/dL Low 1.6-2.6 [facility] Comment on above: Performed By: #### C _ANA #### [facility] [address] [place] [address] PROGRESSon 09-05-2019 PROGRESS HNO ID: [id number] Author: Francine Roberts Service: Vascular Surgery Author Type: Resident Type: Progress Notes Filed: 09/05/2019 6:07 AM Note Text: Attestation signed by Ryan Allen at 09/05/2019 5:37 PM Attending Note I personally saw and examined the patient. I reviewed the resident's note. I agree with the resident's assessment and plan unless otherwise noted. Signature: Ryan Allen MD Date: 09/05/2019 Time: 5:36 PM Vascular Surgery Progress Note SERVICE DATE: 09/05/2019 Vascular AND Thoracic Surgery Service Pager: For questions or concerns Mon-Mon 6a-5p please page [phone]. After 5pm and on Weekends and Holidays, please page [phone] if in ICU or [phone] if on RNF. Subjective SUBJECTIVE: Denies pain. Feeling well overall. Ready to get today's surgery over with. Objective OBJECTIVE: Vitals: Temp (24hrs), Av.8 ?C (98.3 ?F), Min:36.5 ?C (97.7 ?F), Max:37.3 ?C (99.1 ?F) BP (!) 117/44 Pulse 73 Temp 37.3 ?C (99.1 ?F) (Oral) Resp 18 Ht 177.8 cm (5' 10") Wt 89.4 kg (197 lb 3.2 oz) SpO2 96% BMI 28.30 kg/m? O2 Therapy: Room Air IANDO: Date 09/04/19699 - 09/05/1958 09/05/19 07 - 09/06/19 0659 Shift 5733-3117 9666-3927 4072-3826 24 Hour Total 1832-5353 0614-4425 0896-3301 24 Hour Total INTAKE Shift Total OUTPUT Urine 650 767 608 1160 Void (ml) 650 888 881 6288 Shift Total 650 619 778 5165 Weight (kg) 89.4 89.4 89.4 89.4 89.4 89.4 89.4 89.4 MEDICATIONS Current Facility-Administered Medications Medication Dose Route Frequency - potassium phosphate 30 mmol in NaCl 0.9% 250 mL 30 mmol INTRAVENOUS ONCE - oxyCODONE IR 5 mg tab(s) (ROXICODONE) 5 mg ORAL q 6 H PRN - calcium carbonate 1,000 mg chewable tab(s) (TUMS) 1,000 mg ORAL BID - dextrose 5% in NaCl 0.9% iv infusion 100 mL/hr INTRAVENOUS CONTINUOUS - acetaminophen 975 mg tab(s) (TYLENOL) 975 mg ORAL q 6 H - aspirin 81 mg chewable tab(s) 81 mg ORAL DAILY - heparin 5,000 Units injection 5,000 Units SUBCUTANEOUS q 12 H - metoprolol succinate ER 50 mg tab(s) (TOPROL XL) 50 mg ORAL DAILY - insulin lispro 4 Units pen (rapid acting) (HumaLOG KWIKPEN) 4 Units SUBCUTANEOUS w MEALS - gabapentin 100 mg cap(s) (NEURONTIN) 100 mg ORAL q 8 H - insulin lispro pen (rapid acting) (HumaLOG KWIKPEN) SUBCUTANEOUS w MEALS - glimepiride 4 mg tab(s) (AMARYL) 4 mg ORAL DAILY WITH BREAKFAST - metFORMIN 1,000 mg tab(s) (GLUCOPHAGE) 1,000 mg ORAL BID w MEALS - insulin glargine 10 Units pen (long acting) (LANTUS SOLOSTAR, BASAGLAR KWIKPEN) 10 Units SUBCUTANEOUS AT BEDTIME - ondansetron 4 mg tab(s) (ZOFRAN) 4 mg ORAL q 6 H PRN Or - ondansetron (PF) 4 mg injection (ZOFRAN) 4 mg INTRAVENOUS q 6 H PRN - polyethylene glycol 3350 17 g packet (MIRALAX, GLYCOLAX) 17 g ORAL DAILY PRN - docusate sodium 100 mg cap(s) (COLACE) 100 mg ORAL BID PRN - magnesium hydroxide 400 mg/5 mL 30 mL (MOM) 30 mL ORAL DAILY PRN - bisacodyl 10 mg suppository (DULCOLAX) 10 mg RECTAL DAILY PRN - atorvastatin 40 mg tab(s) (LIPITOR) 40 mg ORAL DAILY - lisinopril 10 mg tab(s) (ZESTRIL, PRINIVIL) 10 mg ORAL DAILY - levothyroxine 25 mcg tab(s) (SYNTHROID) 25 mcg ORAL DAILY - dextrose 40 % 15 g 15 g ORAL PRN Or - glucagon 1 mg injection (GLUCAGEN) 1 mg INTRAMUSCULAR PRN Or - dextrose 50% in water 25 mL syringe 12.5 g INTRAVENOUS PRN Labs: Recent Labs 09/04/19 0435 09/03/19 0605 NA 139 136 K 4.0 4.4 CHLOR 110* 106 CO2 25 27 BUN 23* 25* CREAT 0.87 0.90 GLUC 113* 135* ANION 8 7* CA 8.0* 7.9* MG 1.8 1.4* P 2.2* 2.9 WBC 9.95* 12.94* HB 8.3* 8.9* HCT 27.6* 28.1* PLT 371* 410* Exam: GENERAL: No distress, Alert NEURO: AANDOx3. HEENT: normocephalic, atraumatic LUNGS: Equal chest rise bilaterally, Unlabored breathing O2 Therapy: Room Air CARDIAC: Regular rate and rhythm as above ABDOMEN: Soft, non-tender, non-distended, no masses or organomegaly EXTREMITIES: R groin incision c/d/i with glue, minimal swelling, no hematoma. Right foot amputation. No edema. Dressing C/D/I without evidence of oozing. Extremity warm. SKIN: Skin color, texture, turgor normal, No rashes or lesions ASSESSMENT AND PLAN: Active Hospital Problems Diagnosis Date Noted - Malnutrition of moderate degree (HCC) 08/22/2019 - Gangrene of foot (HCC) 08/21/2019 - Diabetes (HCC) 08/21/2019 - HTN (hypertension) 08/21/2019 - Dyslipidemia 08/21/2019 - Hypothyroidism 08/21/2019 This is a 79 year old male with PMH of thyroid disease, HTN, dyslipidemia,claudicat ion, DM. 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 Antibiotics stopped 08/23, remains non-septic. 09/01 R femoral endarterectomy. 09/02 PVR R calf 0.51, R low thigh 0.74. ? Plan: -?DIET NPO ??? - Regular wound examinations, BID dressing changes, wound care following - PT/OT - acute rehab - [facility] ppx - Mobilization as able, out of bed to chair?as tolerated - PAD - continue statin?and aspirin - R BKA today SIGNATURE: Francine Roberts MD PATIENT NAME: lEizabeth Modi DATE: September 05, 2019 TIME: 6:21 AM Vascular AND Thoracic Surgery Service Pager: For questions or concerns Mon-Mon 6a-5p please page [phone]. After 5pm and on Weekends and Holidays, please page [phone] if in ICU or [phone] if on RNF. Normal [facility] Phosphorus Bloodon 0 Phosphate [Mass/Vol] 2.9 mg/dL Normal 2.5-4.9 [facility] Comment on above: Performed By: #### M AG #### [facility] [address] [place] [address] Surgical Tissue Examon 09-04 Surgical Tissue Exam Test performed at [place] [address] NAME: ELIZABETH MODI REQUESTING: JOVANNY PARMAR MD FINAL DIAGNOSIS: RIGHT BELOW KNEE AMPUTATION - PREVIOUS FOOT AMPUTATION SITE STUMP WITH GANGRENOUS NECROSIS AND ACUTE INFLAMMATION. GANGRENOUS NECROSIS OF BONE. CALCIFIC ATHEROSCLEROSIS. COMMENT: The soft tissue resection margin is viable. OPERATIVE PROCEDURE: Revision right amputation stump CLINICAL INFORMATION: S/P right AKA GROSS DESCRIPTION: Right lower leg stump revision Received in formalin labeled right lower leg stump revision is a below the knee stump revision measuring 22.5 x 8.5 x 5.0 cm. The soft tissue line of resection appears viable and is inked black. The distal aspect displays a previous resection site. The previous resection site displays a red-pink ischemic-appearing area measuring 4.5 x 3.5 cm. Upon sectioning, the process involves the underlying soft tissue and appears to involve the underlying bone. Upon sectioning, the vessels display diffuse mild calcific atherosclerosis. Thrombi are not present. Commercial Helicopter Pilot sections are submitted as follows: 1 - soft tissue line of resection (black ink); 2-3 - technical sales representatives sections of red-pink ischemic process at distal aspect; 4 - technical sales representatives sections of vessels; 5 - technical sales representatives section of bone following a period of decalcification. KVB:cindi ARENAS M.D. (Electronic signature on file) Signed out: 09/09/2019 14:52 PRINTED: 09/09/2019 Page 1 of 1 Normal [facility] Comment on above: Performed By: #### M AG #### [place] [address] Type and Screenon 09-05-2019 ABO group Nom (Bld) A Normal [facility] Comment on above: Performed By: #### M AG #### [facility] [address] [place] [address] Comment See Below Normal [facility] Comment on above: Result Comment: Scre en &/or Xmatch expires in 3 days at 12 midnight. Redraw patient at that time. Performed By: #### M AG #### [place] [address] RH Type Positive Normal [facility] Comment on above: Performed By: #### M AG #### [place] [address] Basic Panelon 09-04-2019 Creatinine [Mass/Vol] 0.87 mg/dL Normal 0.67-1.17 [facility] Comment on above: Result Comment: Use of this assay is not recommended for patients undergoing treatment with phenindione, due to the potential for falsely depressed results. Performed By: #### F ERR #### [place] [address] Anion gap [Moles/Vol] 8 mmol/L Normal 8-16 [facility] Comment on above: Performed By: #### F ERR #### [place] [address] Calcium [Mass/Vol] 8.0 mg/dL Low 8.5-10.1 [facility] Comment on above: Performed By: #### F ERR #### [place] [address] CO2 [Moles/Vol] 25 mmol/L Normal 21-32 [facility] Comment on above: Performed By: #### F ERR #### [facility] [address] [place] [address] Glucose [Mass/Vol] 113 mg/dL High 70-99 [facility] Comment on above: Performed By: #### F ERR #### [facility] [address] [place] [address] Urea nitrogen [Mass/Vol] 23 mg/dL High 7-18 [facility] Comment on above: Performed By: #### F ERR #### [facility] [address] [place], [place] [address] Chloride [Moles/Vol] 110 mmol/L High 98-107 [facility] Comment on above: Performed By: #### F ERR #### [facility] [address] [place], [place] [address] Potassium [Moles/Vol] 4.0 mmol/L Normal 3.5-5.1 [facility] Comment on above: Performed By: #### F ERR #### [facility] [address] [place], [place] [address] Sodium [Moles/Vol] 139 mmol/L Normal 136-145 [facility] Comment on above: Performed By: #### F ERR #### [facility] [address] [place] [address] CASE MANAGEMon 09-04-2019 CASE MANAGEM HNO ID: [id number] Author: Tami SantiagoRn) KAVIN Patricio Service: Care Management Author Type: Registered Nurse Type: Care Mgt Progress Note Filed: 09/04/2019 9:41 AM Note Text: CARE MANAGEMENT PROGRESS NOTE SERVICE DATE: 09/04/2019 SERVICE TIME: 9:36 AM LOS: 14 days Chart reviewed. 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 Plan for [facility] rehab at d/c. Pt will need auth when medically stable and likely cot transport. Will follow. SIGNATURE: Tami Patricio RN PATIENT NAME: Elizabeth Modi DATE: September 04, 2019 TIME: 9:36 AM PAGER/CONTACT #: [phone] [facility] CONSULT PROGon 09-04-2019 CONSULT PROG HNO ID: [id number] Author: Doris Eden Service: Endocrinology Author Type: Physician Type: Consult Progress Note Filed: 09/04/2019 9:41 AM Note Text: ENDOCRINOLOGY CONSULT PROGRESS NOTE SERVICE DATE: 09/04/2019 SERVICE TIME: 9:20 AM Subjective INTERVAL HPI: Pt followed for diabetes mellitus type 2 with complications. 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 Had LE angiogram on 08/26. Had right femoral endarterectomy on 09/01. Plan for right BKA today. Was in ICU, tr to floor on 09/02. Pt has occ pain. No SOB, no nausea. PT following. DIET HEART HEALTHY DIET NPO For OR today Recent Labs 09/04/19 0732 09/04/19 0435 09/03/19 2049 09/03/19 1652 09/03/19 0605 09/02/19 0507 GLUC -- 113* -- -- -- 135* -- 148* GLUCOSEMETER 130* -- 195* 167* < > -- < > -- < > = values in this interval not displayed. Current Facility-Administered Medications Medication Dose Route Frequency - ondansetron 4 mg tab(s) (ZOFRAN) 4 mg ORAL q 6 H PRN Or - ondansetron (PF) 4 mg injection (ZOFRAN) 4 mg INTRAVENOUS q 6 H PRN - polyethylene glycol 3350 17 g packet (MIRALAX, GLYCOLAX) 17 g ORAL DAILY PRN - docusate sodium 100 mg cap(s) (COLACE) 100 mg ORAL BID PRN - magnesium hydroxide 400 mg/5 mL 30 mL (MOM) 30 mL ORAL DAILY PRN - bisacodyl 10 mg suppository (DULCOLAX) 10 mg RECTAL DAILY PRN - atorvastatin 40 mg tab(s) (LIPITOR) 40 mg ORAL DAILY - lisinopril 10 mg tab(s) (ZESTRIL, PRINIVIL) 10 mg ORAL DAILY - levothyroxine 25 mcg tab(s) (SYNTHROID) 25 mcg ORAL DAILY - dextrose 40 % 15 g 15 g ORAL PRN Or - glucagon 1 mg injection (GLUCAGEN) 1 mg INTRAMUSCULAR PRN Or - dextrose 50% in water 25 mL syringe 12.5 g INTRAVENOUS PRN - gabapentin 100 mg cap(s) (NEURONTIN) 100 mg ORAL q 8 H - insulin lispro pen (rapid acting) (HumaLOG KWIKPEN) SUBCUTANEOUS w MEALS - glimepiride 4 mg tab(s) (AMARYL) 4 mg ORAL DAILY WITH BREAKFAST - metFORMIN 1,000 mg tab(s) (GLUCOPHAGE) 1,000 mg ORAL BID w MEALS - insulin glargine 10 Units pen (long acting) (LANTUS SOLOSTAR, BASAGLAR KWIKPEN) 10 Units SUBCUTANEOUS AT BEDTIME - insulin lispro 4 Units pen (rapid acting) (HumaLOG KWIKPEN) 4 Units SUBCUTANEOUS w MEALS - metoprolol succinate ER 50 mg tab(s) (TOPROL XL) 50 mg ORAL DAILY - acetaminophen 975 mg tab(s) (TYLENOL) 975 mg ORAL q 6 H - aspirin 81 mg chewable tab(s) 81 mg ORAL DAILY - heparin 5,000 Units injection 5,000 Units SUBCUTANEOUS q 12 H - oxyCODONE IR 5 mg tab(s) (ROXICODONE) 5 mg ORAL q 6 H PRN - calcium carbonate 1,000 mg chewable tab(s) (TUMS) 1,000 mg ORAL BID - [START ON 09/05/2019] dextrose 5% in NaCl 0.9% iv infusion 100 mL/hr INTRAVENOUS CONTINUOUS - potassium phosphate 45 mmol in NaCl 0.9% 250 mL 45 mmol INTRAVENOUS ONCE Objective PHYSICAL EXAM: BP 114/56 Pulse 72 Temp (Src) 97.3 (Oral) Resp 18 Ht 5' 10" (1.78m) Wt 197 lb 3.2 oz (89.4kg) SpO2 98% BMI 28.30 kg/(m2). O2 Therapy: Room AirGeneral : no distress Lungs : CTA anteriorly Heart : RRR Abdomen soft, no masses Extremities: dressing on R leg stump; dressing on left ankle lat ? DATA: Diagnostic tests reviewed for today's visit: Most recent labs and imaging results. Assessment/Plan Diabetes mellitus type 2, 37 years duration; uncontrolled with complications; HbA1c 9.8. Took insulin in past a few years ago. Started on prog Lantus 10 units qhs on 08/22. Contd home Rx, Metformin 1 gm bid and Glimepiride 4 mg po daily am. Still had hyperglycemia; added prandial humalog 4 units qac tid on 3 pm. BS high on 08/24 night; pt did not eat well (30%) and Humalog was held! BS high at hs on 08/26, >300; no pattern, denies having snack? Eating well and on Boost also, has juices occ! On Lantus/Humalog/oral agents. BS overall stable. NO JUICES reinforced. Held oral agents/Humalog on 09/01 am when npo. BS high post-op, was on D5NS. BS were high on 09/02, ? due to pain; better now. Cont Rx. Hold meds while NPO this am. 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 Plan for Right BKA today. PVD, had right common femoral endarterectomy on 09/01 HTN (hypertension) POA: Yes Assessment AND Plan: on Rx Dyslipidemia POA: Yes Assessment AND Plan: on Rx Hypothyroidism POA: Yes Assessment AND Plan: on LT4 Malnutrition of moderate degree (HCC) POA: Yes Assessment AND Plan: on Boost supplements SIGNATURE: Doris Eden MD PATIENT NAME: Elizabeth Modi DATE: September 04, 2019 TIME: 9:41 AM PAGER: [phone] Normal [facility] Hemogramon 09-04-2019 Erythrocyte distribution width (RBC) [Ratio] 15.8 % High 11.6-14.4 [facility] Comment on above: Performed By: #### F ERR #### [place] [address] Hematocrit (Bld) [Volume fraction] 27.6 % Low 40.1-51.0 [facility] Comment on above: Performed By: #### F ERR #### [address] [address] Hemoglobin (Bld) [Mass/Vol] 8.3 g/dL Low 13.7-17.5 [facility] Comment on above: Performed By: #### F ERR #### [address] [address] MCH (RBC) [Entitic mass] 28.0 pg Normal 25.7-32.2 [facility] Comment on above: Performed By: #### F ERR #### [address] [address] MCHC (RBC) [Mass/Vol] 30.1 % Low 32.3-36.5 [facility] Comment on above: Performed By: #### F ERR #### [place] [id number] MCV (RBC) [Entitic vol] 93.2 fL Normal 83.2-95.6 [facility] Comment on above: Performed By: #### F ERR #### [facility] [address] [place] [address] Platelet mean volume (Bld) [Entitic vol] 10.0 fL Normal 8.7-12.0 [facility] Comment on above: Performed By: #### F ERR #### [facility] [address] [place] [address] Platelets (Bld) [#/Vol] 371 thou/cmm High 141-365 [facility] Comment on above: Performed By: #### F ERR #### [facility] [address] [place] [address] RBC (Bld) [#/Vol] 2.96 mil/cmm Low 4.63-6.08 [facility] Comment on above: Performed By: #### F ERR #### [place] [address] RDW SD 51.6 fl High 36.1-45.8 [facility] Comment on above: Performed By: #### F ERR #### [facility] [address] [place] [address] WBC (Bld) [#/Vol] 9.95 thou/cmm High 4.23-9.07 [facility] Comment on above: Performed By: #### F ERR #### [place] [address] Magnesium Bloodon 09-04-2019 Magnesium [Mass/Vol] 1.8 mg/dL Normal 1.6-2.6 [facility] Comment on above: Performed By: #### M AG #### [place] [address] PROGRESSon 09-04-2019 PROGRESS HNO ID: [id number] Author: Francine Roberts Service: Vascular Surgery Author Type: Resident Type: Progress Notes Filed: 09/04/2019 6:46 AM Note Text: Attestation signed by Ryan Allen at 09/05/2019 5:36 PM .Attending Note I personally saw and examined the patient. I reviewed the resident's note. I agree with the resident's assessment and plan unless otherwise noted. Signature: Ryan Allen MD Date: 09/05/2019 Time: 5:36 PM Vascular Surgery Progress Note SERVICE DATE: 09/04/2019 Vascular AND Thoracic Surgery Service Pager: For questions or concerns Mon-Fri 6a-5p please page [phone]. After 5pm and on Weekends and Holidays, please page [phone] if in ICU or [phone] if on RNF. Subjective SUBJECTIVE: Complaining of some lower back/buttock pain from sitting in his chair yesterday. Otherwise feeling well. Objective OBJECTIVE: Vitals: Temp (24hrs), Av.4 ?C (97.6 ?F), Min:35.9 ?C (96.6 ?F), Max:36.8 ?C (98.2 ?F) BP 114/56 Pulse 72 Temp 36.3 ?C (97.3 ?F) (Oral) Resp 18 Ht 177.8 cm (5' 10") Wt 89.4 kg (197 lb 3.2 oz) SpO2 98% BMI 28.30 kg/m? O2 Therapy: Room Air IANDO: Date 09/03/19 07 - 09/04/1958 09/04/19699 - 09/05/19 0659 Shift 0994-5132 7367-9457 9666-6265 24 Hour Total 2748-2458 9691-1616 1644-0354 24 Hour Total INTAKE IV 611 611 Volume (mL) (lactated ringers infusion) 511 511 Volume (mL) (magnesium sulfate in sterile water 4 g iv piggyback) 100 100 Shift Total 611 611 OUTPUT Urine 893 151 0057 Void (ml) 190 817 1766 Shift Total 317 174 3341 Weight (kg) 91.4 91.4 89.4 89.4 89.4 89.4 89.4 89.4 MEDICATIONS Current Facility-Administered Medications Medication Dose Route Frequency - potassium phosphate 45 mmol in NaCl 0.9% 250 mL 45 mmol INTRAVENOUS ONCE - oxyCODONE IR 5 mg tab(s) (ROXICODONE) 5 mg ORAL q 6 H PRN - calcium carbonate 1,000 mg chewable tab(s) (TUMS) 1,000 mg ORAL BID - acetaminophen 975 mg tab(s) (TYLENOL) 975 mg ORAL q 6 H - aspirin 81 mg chewable tab(s) 81 mg ORAL DAILY - heparin 5,000 Units injection 5,000 Units SUBCUTANEOUS q 12 H - metoprolol succinate ER 50 mg tab(s) (TOPROL XL) 50 mg ORAL DAILY - insulin lispro 4 Units pen (rapid acting) (HumaLOG KWIKPEN) 4 Units SUBCUTANEOUS w MEALS - gabapentin 100 mg cap(s) (NEURONTIN) 100 mg ORAL q 8 H - insulin lispro pen (rapid acting) (HumaLOG KWIKPEN) SUBCUTANEOUS w MEALS - glimepiride 4 mg tab(s) (AMARYL) 4 mg ORAL DAILY WITH BREAKFAST - metFORMIN 1,000 mg tab(s) (GLUCOPHAGE) 1,000 mg ORAL BID w MEALS - insulin glargine 10 Units pen (long acting) (LANTUS SOLOSTAR, BASAGLAR KWIKPEN) 10 Units SUBCUTANEOUS AT BEDTIME - ondansetron 4 mg tab(s) (ZOFRAN) 4 mg ORAL q 6 H PRN Or - ondansetron (PF) 4 mg injection (ZOFRAN) 4 mg INTRAVENOUS q 6 H PRN - polyethylene glycol 3350 17 g packet (MIRALAX, GLYCOLAX) 17 g ORAL DAILY PRN - docusate sodium 100 mg cap(s) (COLACE) 100 mg ORAL BID PRN - magnesium hydroxide 400 mg/5 mL 30 mL (MOM) 30 mL ORAL DAILY PRN - bisacodyl 10 mg suppository (DULCOLAX) 10 mg RECTAL DAILY PRN - atorvastatin 40 mg tab(s) (LIPITOR) 40 mg ORAL DAILY - lisinopril 10 mg tab(s) (ZESTRIL, PRINIVIL) 10 mg ORAL DAILY - levothyroxine 25 mcg tab(s) (SYNTHROID) 25 mcg ORAL DAILY - dextrose 40 % 15 g 15 g ORAL PRN Or - glucagon 1 mg injection (GLUCAGEN) 1 mg INTRAMUSCULAR PRN Or - dextrose 50% in water 25 mL syringe 12.5 g INTRAVENOUS PRN Labs: Recent Labs 09/04/19 0435 09/03/19 0605 NA 139 136 K 4.0 4.4 CHLOR 110* 106 CO2 25 27 BUN 23* 25* CREAT 0.87 0.90 GLUC 113* 135* ANION 8 7* CA 8.0* 7.9* MG 1.8 1.4* P 2.2* 2.9 WBC 9.95* 12.94* HB 8.3* 8.9* HCT 27.6* 28.1* PLT 371* 410* Exam: GENERAL: No distress, Alert NEURO: AANDOx3. HEENT: normocephalic, atraumatic LUNGS: Equal chest rise bilaterally, Unlabored breathing O2 Therapy: Room Air CARDIAC: Regular rate and rhythm as above ABDOMEN: Soft, non-tender, non-distended, no masses or organomegaly EXTREMITIES: R groin incision c/d/i with glue, minimal ecchymosis, minimal swelling, no hematoma. Right foot amputation. No edema. Dressing C/D/I without evidence of oozing. Extremity warm. SKIN: Skin color, texture, turgor normal, No rashes or lesions ASSESSMENT AND PLAN: Active Hospital Problems Diagnosis Date Noted - Malnutrition of moderate degree (HCC) 08/22/2019 - Gangrene of foot (HCC) 08/21/2019 - Diabetes (HCC) 08/21/2019 - HTN (hypertension) 08/21/2019 - Dyslipidemia 08/21/2019 - Hypothyroidism 08/21/2019 This is a 79 year old male with PMH of thyroid disease, HTN, dyslipidemia,claudicat ion, DM. 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 Antibiotics stopped 08/23, remains non-septic. 09/01 R femoral endarterectomy. 09/02 PVR R calf 0.51, R low thigh 0.74. ? Plan: -?DIET HEART HEALTHY DIET NPO ??? - Regular wound examinations, BID dressing changes, wound care following - PT/OT - acute rehab - [facility] ppx - Mobilization as able, out of bed to chair?as tolerated - PAD - continue statin?and aspirin - R BKA tomorrow SIGNATURE: Francine Roberts MD PATIENT NAME: Elizabeth Modi DATE: September 04, 2019 TIME: 6:21 AM Vascular AND Thoracic Surgery Service Pager: For questions or concerns Mon-Mon 6a-5p please page [phone]. After 5pm and on Weekends and Holidays, please page [phone] if in ICU or [phone] if on RNF. Normal [facility] Phosphorus Bloodon 0 Phosphate [Mass/Vol] 2.2 mg/dL Low 2.5-4.9 [facility] Comment on above: Performed By: #### C _ANA #### [place] [address] THERAPY NTon 09-04-2019 THERAPY NT HNO ID: [id number] Author: Marilyn (Pt) Mark Service: Physical Therapy Author Type: Physical Therapist Type: Therapy (PT/OT/Speech/Resp) Filed: 09/04/2019 3:34 PM Note Text: PHYSICAL THERAPY MISSED VISIT SERVICE DATE: 09/04/2019 SERVICE TIME: 1532 to 1532 ROOM: [place] [address] Attempted Treatment. Patient not seen due to Declined. Patient reports he is extremely tired today and is having his procedure tomorrow. States he is not feeling up to it today despite encouragement. Educated patient that we will visit him after his procedure. SIGNATURE: Marilyn Flores PT PATIENT NAME: Elizabeth Modi DATE: September 04, 2019 TIME: 3:33 PM Normal [facility] ANES [place] 09-03-2019 ANES POST HNO ID: [id number] Author: Dwayne Kerns Service: Anesthesiology Author Type: Physician Type: Anesthesia PostOp Filed: 09/02/2019 11:44 PM Note Text: POST ANESTHESIA EVALUATION NOTE SERVICE DATE: 09/02/2019 SERVICE TIME: 11:44 PM : 1941 Vitals: 09/02/19 0502 09/02/19 0906 09/02/19149909/02/19 1900 Temp: 36.8 ?C (98.2 ?F) 36.1 ?C (97 ?F) 36 ?C (96.8 ?F) 36.3 ?C (97.3 ?F) 09/02/19199909/02/19209909/02/19219909/02/19 2300 BP: 98/51 94/51 (!) 99/47 (!) 106/49 09/02/19199909/02/19209909/02/19219909/02/19 2300 Pulse: 82 87 87 70 09/02/19199909/02/19209909/02/19219909/02/19 2300 Resp: 14 17 15 17 09/02/19199909/02/19209909/02/19219909/02/19 2300 SpO2: 99% 97% 97% 94% Validated Vital Signs: Yes POST ANES STATUS: No apparent anesthetic complications. The patient is appropriately hydrated with stable respiratory and cardiovascular status. Patient has safe and adequate airway control. The patient has appropriate pain relief and no significant post operative nausea or vomiting. The patient has achieved baseline mental status. Intra-Operative Events: No Significant Anesthesia Events Further assessment by Anesthesia Service: None Other Remarks: SIGNATURE: Dwayne Kerns MD PATIENT NAME: Elizabeth Modi DATE: September 02, 2019 TIME: 11:44 PM PAGER/CONTACT #: [phone] Normal [facility] Basic Panelon 09-03-2019 Creatinine [Mass/Vol] 0.90 mg/dL Normal 0.67-1.17 [facility] Comment on above: Result Comment: Use of this assay is not recommended for patients undergoing treatment with phenindione, due to the potential for falsely depressed results. Performed By: #### C BC1 #### [place] [address] Anion gap [Moles/Vol] 7 mmol/L Low 8-16 [facility] Comment on above: Performed By: #### C BC1 #### [facility] [address] [place], [place] [address] Calcium [Mass/Vol] 7.9 mg/dL Low 8.5-10.1 [facility] Comment on above: Performed By: #### C BC1 #### [facility] [address] [place], [place] [address] CO2 [Moles/Vol] 27 mmol/L Normal 21-32 [facility] Comment on above: Performed By: #### C BC1 #### [facility] [address] [place], [place] [address] Glucose [Mass/Vol] 135 mg/dL High 70-99 [facility] Comment on above: Performed By: #### C BC1 #### [facility] [address] [place], [place] [address] Urea nitrogen [Mass/Vol] 25 mg/dL High 7-18 [facility] Comment on above: Performed By: #### C BC1 #### [facility] [address] [place], [place] [address] Chloride [Moles/Vol] 106 mmol/L Normal 98-107 [facility] Comment on above: Performed By: #### C BC1 #### [facility] [address] [place], [place] [address] Potassium [Moles/Vol] 4.4 mmol/L Normal 3.5-5.1 [facility] Comment on above: Performed By: #### C BC1 #### [address] [address] Sodium [Moles/Vol] 136 mmol/L Normal 136-145 [facility] Comment on above: Performed By: #### C BC1 #### [address] [address] CASE MANAGEMon 09-03-2019 CASE MANAGEM HNO ID: [id number] Author: Ammy (Rn) KAVIN Gutierres Service: ? Author Type: Registered Nurse Type: Care Mgt Progress Note Filed: 09/03/2019 9:51 AM Note Text: CARE MANAGEMENT PROGRESS NOTE SERVICE DATE: 09/03/2019 SERVICE TIME: 9:50 AM LOS: 13 days Needs Prior to Discharge: Discharge Prescriptions;OT/PT Evaluation;Precertific ation;Discharge Transportation S/P endarterectomy 09/01. Waiting on decision re need for AKA vs BKA. Disch plan: Acute rehab. SIGNATURE: Ammy Gutierres RN PATIENT NAME: Elizabeth Modi DATE: September 03, 2019 TIME: 9:50 AM PAGER/CONTACT #: [phone] [facility] CONSULT PROGon 09-03-2019 CONSULT PROG HNO ID: [id number] Author: Doris Eden Service: Endocrinology Author Type: Physician Type: Consult Progress Note Filed: 09/03/2019 8:39 AM Note Text: ENDOCRINOLOGY CONSULT PROGRESS NOTE SERVICE DATE: 09/03/2019 SERVICE TIME: 8:05 AM Subjective INTERVAL HPI: Pt followed for diabetes mellitus type 2 with complications. 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 Had LE angiogram on 08/26. Had right femoral endarterectomy on 09/01. In ICU. Pt has no pain. No SOB, no nausea. PT following. DIET HEART HEALTHY On Boost also Recent Labs 09/03/19 0605 09/02/19 2123 09/02/19 1702 09/02/19 1332 09/02/19 0507 GLUC 135* -- -- -- -- 148* GLUCOSEMETER -- 272* 209* 163* < > -- < > = values in this interval not displayed. Current Facility-Administered Medications Medication Dose Route Frequency - ondansetron 4 mg tab(s) (ZOFRAN) 4 mg ORAL q 6 H PRN Or - ondansetron (PF) 4 mg injection (ZOFRAN) 4 mg INTRAVENOUS q 6 H PRN - polyethylene glycol 3350 17 g packet (MIRALAX, GLYCOLAX) 17 g ORAL DAILY PRN - docusate sodium 100 mg cap(s) (COLACE) 100 mg ORAL BID PRN - magnesium hydroxide 400 mg/5 mL 30 mL (MOM) 30 mL ORAL DAILY PRN - bisacodyl 10 mg suppository (DULCOLAX) 10 mg RECTAL DAILY PRN - atorvastatin 40 mg tab(s) (LIPITOR) 40 mg ORAL DAILY - lisinopril 10 mg tab(s) (ZESTRIL, PRINIVIL) 10 mg ORAL DAILY - levothyroxine 25 mcg tab(s) (SYNTHROID) 25 mcg ORAL DAILY - dextrose 40 % 15 g 15 g ORAL PRN Or - glucagon 1 mg injection (GLUCAGEN) 1 mg INTRAMUSCULAR PRN Or - dextrose 50% in water 25 mL syringe 12.5 g INTRAVENOUS PRN - gabapentin 100 mg cap(s) (NEURONTIN) 100 mg ORAL q 8 H - insulin lispro pen (rapid acting) (HumaLOG KWIKPEN) SUBCUTANEOUS w MEALS - glimepiride 4 mg tab(s) (AMARYL) 4 mg ORAL DAILY WITH BREAKFAST - metFORMIN 1,000 mg tab(s) (GLUCOPHAGE) 1,000 mg ORAL BID w MEALS - insulin glargine 10 Units pen (long acting) (LANTUS SOLOSTAR, BASAGLAR KWIKPEN) 10 Units SUBCUTANEOUS AT BEDTIME - insulin lispro 4 Units pen (rapid acting) (HumaLOG KWIKPEN) 4 Units SUBCUTANEOUS w MEALS - metoprolol succinate ER 50 mg tab(s) (TOPROL XL) 50 mg ORAL DAILY - lactated ringers infusion 125 mL/hr INTRAVENOUS CONTINUOUS - fentaNYL 50 mcg/mL 50 mcg injection (SUBLIMAZE) 50 mcg INTRAVENOUS q 5 MIN PRN - meperidine (PF) 12.5 mg injection (DEMEROL) 12.5 mg INTRAVENOUS q 10 MIN PRN - acetaminophen 975 mg tab(s) (TYLENOL) 975 mg ORAL q 6 H - aspirin 81 mg chewable tab(s) 81 mg ORAL DAILY - heparin 5,000 Units injection 5,000 Units SUBCUTANEOUS q 12 H - oxyCODONE IR 5-10 mg tab(s) (ROXICODONE) 5-10 mg ORAL q 6 H PRN Objective PHYSICAL EXAM: BP 122/53 Pulse 65 Temp (Src) 97.5 (Temporal) Resp 16 Ht 5' 10" (1.78m) Wt 201 lb 8 oz (91.4kg) SpO2 94% BMI 28.91 kg/(m2). General : no distress Lungs : CTA anteriorly Heart : RRR Abdomen soft, no masses Extremities: dressing on R leg stump; dressing on left ankle lat ? DATA: Diagnostic tests reviewed for today's visit: Most recent labs and imaging results. Assessment/Plan Diabetes mellitus type 2, 37 years duration; uncontrolled with complications; HbA1c 9.8. Took insulin in past a few years ago. Started on prog Lantus 10 units qhs on 08/22. Contd home Rx, Metformin 1 gm bid and Glimepiride 4 mg po daily am. Still had hyperglycemia; added prandial humalog 4 units qac tid on 3 pm. BS high on 08/24 night; pt did not eat well (30%) and Humalog was held! BS high at hs on 08/26, >300; no pattern, denies having snack? Eating well and on Boost also, has juices occ! BS better now. On Lantus/Humalog/oral agents. BS overall stable. NO JUICES reinforced. Held oral agents/Humalog on 09/01 am when npo. BS high post-op, was on D5NS. Now BS better. Cont Rx. 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; had B/L LE angiogram to determine definitive management (BKA vs AKA) PVD, had right common femoral endearterectomy on 09/01 HTN (hypertension) POA: Yes Assessment AND Plan: on Rx Dyslipidemia POA: Yes Assessment AND Plan: on Rx Hypothyroidism POA: Yes Assessment AND Plan: on LT4 Malnutrition of moderate degree (HCC) POA: Yes Assessment AND Plan: on Boost supplements SIGNATURE: Doris Eden MD PATIENT NAME: Elizabeth Modi DATE: September 03, 2019 TIME: 8:39 AM PAGER: [phone] Normal [facility] Hemogramon 09-03-2019 Erythrocyte distribution width (RBC) [Ratio] 15.4 % High 11.6-14.4 [facility] Comment on above: Performed By: #### M AG #### [address] [address] Hematocrit (Bld) [Volume fraction] 28.1 % Low 40.1-51.0 [facility] Comment on above: Performed By: #### M AG #### [address] [address] Hemoglobin (Bld) [Mass/Vol] 8.9 g/dL Low 13.7-17.5 [facility] Comment on above: Performed By: #### M AG #### [facility] [address] [place], [place] [address] MCH (RBC) [Entitic mass] 29.1 pg Normal 25.7-32.2 [facility] Comment on above: Performed By: #### M AG #### [facility] [address] [place], [place] [address] MCHC (RBC) [Mass/Vol] 31.7 % Low 32.3-36.5 [facility] Comment on above: Performed By: #### M AG #### [facility] [address] [place] [address] MCV (RBC) [Entitic vol] 91.8 fL Normal 83.2-95.6 [facility] Comment on above: Performed By: #### M AG #### [facility] [address] [place] [address] Platelet mean volume (Bld) [Entitic vol] 9.4 fL Normal 8.7-12.0 [facility] Comment on above: Performed By: #### M AG #### [facility] [address] [place] [address] Platelets (Bld) [#/Vol] 410 thou/cmm High 141-365 [facility] Comment on above: Performed By: #### M AG #### [facility] [address] [place] [address] RBC (Bld) [#/Vol] 3.06 mil/cmm Low 4.63-6.08 [facility] Comment on above: Performed By: #### M AG #### [facility] [address] [place] [address] RDW SD 48.7 fl High 36.1-45.8 [facility] Comment on above: Performed By: #### M AG #### [facility] [address] [place] [address] WBC (Bld) [#/Vol] 12.94 thou/cmm High 4.23-9.07 [facility] Comment on above: Performed By: #### M AG #### [facility] [address] [place] [address] Magnesium Bloodon 09-03-2019 Magnesium [Mass/Vol] 1.4 mg/dL Low 1.6-2.6 [facility] Comment on above: Performed By: #### M AG #### [facility] [address] [place] [id number] NURSING PROGon 09-03-2019 NURSING PROG HNO ID: [id number] Author: Kassidy Izquierdo) KAVIN Lew Service: Nursing Author Type: Registered Nurse Type: Nursing Progress Note Filed: 09/03/2019 11:57 AM Note Text: Nursing Progress Note Patient Name: Elizabeth Modi Patient Location: [id number]/[facility] __ Daily Note: 1047--report called to Darrin Chau RN. 1113--pt transferred to 4226 via chair on RA with Rn and Sr Tech. Pt remains in chair, chair locked, call light within reach, tele applied. KAVIN Chau in room. This note was completed by: Kassidy Lew RN [facility] PROGRESSon 09-03-2019 PROGRESS HNO ID: [id number] Author: Francine Roberts Service: Vascular Surgery Author Type: Resident Type: Progress Notes Filed: 09/03/2019 6:32 AM Note Text: Attestation signed by Gordo Figueroa at 09/04/2019 11:09 AM I reviewed the resident's note. I agree with the resident's assessment and plan unless otherwise noted. Vascular Surgery Progress Note SERVICE DATE: 09/03/2019 Vascular AND Thoracic Surgery Service Pager: For questions or concerns Mon-Fri 6a-5p please page [phone]. After 5pm and on Weekends and Holidays, please page [phone] if in ICU or [phone] if on RNF. Subjective SUBJECTIVE: SARATH. Says he thinks his Right leg feels better since the surgery. Denies pain in his Right groin. Had some dinner last night. Objective OBJECTIVE: Vitals: Temp (24hrs), Av.2 ?C (97.2 ?F), Min:36 ?C (96.8 ?F), Max:36.4 ?C (97.5 ?F) BP (!) 113/47 Pulse 63 Temp 36.4 ?C (97.5 ?F) (Temporal) Resp 13 Ht 177.8 cm (5' 10") Wt 91.4 kg (201 lb 8 oz) SpO2 93% BMI 28.91 kg/m? O2 Therapy: Room Air IANDO: Date 09/02/19 07 - 09/03/19 0659 09/03/19 07 - 09/04/19 0659 Shift 7264-0194 3139-0392 1349-0184 24 Hour Total 1486-0391 2093-3297 6539-3042 24 Hour Total INTAKE Shift Total OUTPUT Urine 300 300 Void (ml) 300 300 Shift Total 300 300 Weight (kg) 87.3 87.3 91.4 91.4 91.4 91.4 91.4 91.4 MEDICATIONS Current Facility-Administered Medications Medication Dose Route Frequency - lactated ringers infusion 125 mL/hr INTRAVENOUS CONTINUOUS - fentaNYL 50 mcg/mL 50 mcg injection (SUBLIMAZE) 50 mcg INTRAVENOUS q 5 MIN PRN - meperidine (PF) 12.5 mg injection (DEMEROL) 12.5 mg INTRAVENOUS q 10 MIN PRN - acetaminophen 975 mg tab(s) (TYLENOL) 975 mg ORAL q 6 H - aspirin 81 mg chewable tab(s) 81 mg ORAL DAILY - heparin 5,000 Units injection 5,000 Units SUBCUTANEOUS q 12 H - oxyCODONE IR 5-10 mg tab(s) (ROXICODONE) 5-10 mg ORAL q 6 H PRN - morphine 2 mg injection 2 mg INTRAVENOUS q 2 H PRN - metoprolol succinate ER 50 mg tab(s) (TOPROL XL) 50 mg ORAL DAILY - insulin lispro 4 Units pen (rapid acting) (HumaLOG KWIKPEN) 4 Units SUBCUTANEOUS w MEALS - gabapentin 100 mg cap(s) (NEURONTIN) 100 mg ORAL q 8 H - insulin lispro pen (rapid acting) (HumaLOG KWIKPEN) SUBCUTANEOUS w MEALS - glimepiride 4 mg tab(s) (AMARYL) 4 mg ORAL DAILY WITH BREAKFAST - metFORMIN 1,000 mg tab(s) (GLUCOPHAGE) 1,000 mg ORAL BID w MEALS - insulin glargine 10 Units pen (long acting) (LANTUS SOLOSTAR, BASAGLAR KWIKPEN) 10 Units SUBCUTANEOUS AT BEDTIME - ondansetron 4 mg tab(s) (ZOFRAN) 4 mg ORAL q 6 H PRN Or - ondansetron (PF) 4 mg injection (ZOFRAN) 4 mg INTRAVENOUS q 6 H PRN - polyethylene glycol 3350 17 g packet (MIRALAX, GLYCOLAX) 17 g ORAL DAILY PRN - docusate sodium 100 mg cap(s) (COLACE) 100 mg ORAL BID PRN - magnesium hydroxide 400 mg/5 mL 30 mL (MOM) 30 mL ORAL DAILY PRN - bisacodyl 10 mg suppository (DULCOLAX) 10 mg RECTAL DAILY PRN - atorvastatin 40 mg tab(s) (LIPITOR) 40 mg ORAL DAILY - lisinopril 10 mg tab(s) (ZESTRIL, PRINIVIL) 10 mg ORAL DAILY - levothyroxine 25 mcg tab(s) (SYNTHROID) 25 mcg ORAL DAILY - dextrose 40 % 15 g 15 g ORAL PRN Or - glucagon 1 mg injection (GLUCAGEN) 1 mg INTRAMUSCULAR PRN Or - dextrose 50% in water 25 mL syringe 12.5 g INTRAVENOUS PRN Labs: Recent Labs 09/03/19 0605 09/02/19 0507 NA -- 136 K -- 4.1 CHLOR -- 104 CO2 -- 24 BUN -- 24* CREAT -- 0.78 GLUC -- 148* ANION -- 12 CA -- 8.4* MG -- 1.5* P -- 2.9 WBC 12.94* 9.66* HB 8.9* 10.3* HCT 28.1* 33.4* PLT 410* 425* Exam: GENERAL: No distress, Alert NEURO: AANDOx3. HEENT: normocephalic, atraumatic LUNGS: Equal chest rise bilaterally, Unlabored breathing O2 Therapy: Room Air CARDIAC: Regular rate and rhythm as above ABDOMEN: Soft, non-tender, non-distended, no masses or organomegaly EXTREMITIES: R groin incision c/d/i with glue, minimal ecchymosis, minimal swelling, no hematoma. Right foot amputation. No edema. Dressing C/D/I without evidence of oozing. Extremity warm. SKIN: Skin color, texture, turgor normal, No rashes or lesions ASSESSMENT AND PLAN: Active Hospital Problems Diagnosis Date Noted - Malnutrition of moderate degree (HCC) 08/22/2019 - Gangrene of foot (HCC) 08/21/2019 - Diabetes (HCC) 08/21/2019 - HTN (hypertension) 08/21/2019 - Dyslipidemia 08/21/2019 - Hypothyroidism 08/21/2019 This is a 79 year old male with PMH of thyroid disease, HTN, dyslipidemia,claudicat ion, DM. 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 Antibiotics stopped 08/23, remains non-septic. 09/01 R femoral endarterectomy. ? Plan: -?DIET HEART HEALTHY ??? - Regular wound examinations, BID dressing changes, wound care following - PT/OT - acute rehab - [facility] ppx - Mobilization as able, out of bed to chair?as tolerated - vein mapping complete - PAD - continue statin?and aspirin - PVRs today then determination on AKA/BKA - transfer to [facility] today SIGNATURE: Francine Roberts MD PATIENT NAME: Elizabeth Modi DATE: September 03, 2019 TIME: 6:21 AM Vascular AND Thoracic Surgery Service Pager: For questions or concerns Mon-Mon 6a-5p please page [phone]. After 5pm and on Weekends and Holidays, please page [phone] if in ICU or [phone] if on RNF. Normal [facility] Phosphorus Bloodon 0 Phosphate [Mass/Vol] 2.9 mg/dL Normal 2.5-4.9 [facility] Comment on above: Performed By: #### P 8 #### [facility] [address] [place] [address] THERAPY NTon 09-03-2019 THERAPY NT HNO ID: [id number] Author: Tamiko (Otr/LSmitha Nur Service: Occupational Therapy Author Type: Occupational Therapist Type: Therapy (PT/OT/Speech/Resp) Filed: 09/03/2019 9:19 AM Note Text: Occupational Therapy Evaluation(Re-Evaluati on) SERVICE DATE: 09/03/2019 SERVICE TIME: 0845 to 0900 ROOM: [place] [address] Recommended Discharge Disposition: Acute Rehab Justification For Post Acute Needs: Anticipate patient will tolerate 3 hours of daily therapy at the time of admission to post-acute setting OT Recommendations to Nursing: Bedside Commode for Toileting;OOB for meals;With assist of 2 people Equipment: (gait belt, sit-pivot transfers) OT 6 Clicks Score: 17 Precautions/Activity Restrictions: Weight Bearing Restrictions;Fall Risk;Lines/Tubes/Drain s Isolation Type: None Extremity With Weight Bearing Restricted: Right Lower Extremity Right Lower Extremity Weight Bearing Status: NWB ASSESSMENT: Patient presents with deficits in feeding, grooming, UE bathing/dressing, LE bathing/dressing, functional transfers, functional mobility, decreased safety awareness, and decreased insight to deficits after R femoral endarterectomy. Requires skilled OT to maximize independence with ADLs and functional transfers. Only able to complete sit-pivot transfer at this time, high fall risk, unsteady on feet. Patient Disposition at Start of Session: Supine in Bed;Call Singh in Reach Patient Disposition at End of Session: OOB in Chair;Call Singh in Reach Tolerated Full Session Occupational Therapy Problem List: Safety Deficits;Impaired Self Care;Decreased Activity Tolerance;Decreased Strength;Functional Mobility Impairment;Balance Impaired Patient /Caregiver Goals: Go Home Goals for Plan of Care: Able to perform HEP with: Verbal Cues Only(UB strengthening program) Grooming with: Set Up(sitting in chair) Upper Body Bathing with: Supervision Upper Body Dressing with: Supervision Lower Body Bathing with: Modified Independent Lower Body Dressing with: Modified Independent Toilet Hygiene with: Minimal Assistance Chair Transfer with: Moderate Assistance(stand-pivot ) Toilet Transfer with: Moderate Assistance(BSC, stand-pivot) Tolerate (minutes of functional activity): 30 Functional Activity with: Minimal Assistance Additional Goal 1: patient will adhere to NWB RLE during self care and functional transfers. Additional Goal 2: pt will maximize upper body strength to increase transfers to min assist Demonstrate Competence With Education with: Independent(safety with self care) Transfer: (n/a) Progress Toward Goals: Progressing as expected Rehab Potential: Good PLAN: Treatment Frequency (times per week): 5(2-5) Current admission Treatment Interventions: Education;Self Care / Home Management;Energy Conservation Training;Strengthening ;Functional Mobility Training;Balance Training Plan of Care developed with: Patient TREATMENT INTERVENTIONS: Therapy Diagnosis: Reduced mobility-other;Decreas ed activities of daily living (ADL);Muscle Weakness (generalized);Unsteadi ness on feet;General symptoms and signs-other Interventions Provided: Re-evaluation $ Reevaluation (40429) Billed Units: 1 unit Total Timed Code Treatment Minutes: 39 Total Treatment Time (minutes): 15 SUBJECTIVE: Current Hospital Course: Chart reviewed; R femoral endarterectomy 09/02/2019 Reason for Occupational Therapy Consult: PSYCHOPAEDIC NURSE Relevant Past Medical History: thyroid, HTN, DM, claudication Patient Report: found supine, agreeable to session, moderate pain. "I am so glad I got to the chair." 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 Entry To Home: Stairs;With Rail Number Of Stairs Into Home: 4 Number Of Stairs To Bed/Bath: 0 Tub/Shower Type: walk in shower Laundry: main level Equipment Owned: Rollator;Wheelchair Prior Functional Level: Required Assistance;Within Functional Limits Assistance Required With: Cleaning Prior Functional Level Comments: pt independent without devices and completed ADLs OBJECTIVE: Cognition/Communicatio n Deficits Responsiveness: Alert Follows Commands: 3-step Commands Executive Function Deficits: Safety Awareness;Insight to Deficits Insight to Deficits: Minimal impairment Safety Awareness Deficit: Minimal impairment CURRENT FUNCTIONAL STATUS: Current Activities of Daily Living Assist Level Feeding Modified Independent Grooming Stand By Assistance Bathing Upper Body Stand By Assistance Bathing Lower Body Maximal Assistance Dressing Upper Body Minimal Assistance Dressing Lower Body Maximal Assistance Toileting Maximal Assistance Functional Mobility Assist Level Supine to Sit Minimal Assistance Scooting Minimal Assistance Sit to Stand Maximal Assistance(x2) Stand to Sit Maximal Assistance(x2) Bed to Chair Maximal Assistance(x2, sit pivot to chair) Gait Belt Hand Dominance: Left Range of Motion: WFL Except Strength: WFL Except;Upper Extremity Comments Strength Limitation Comments: 4/5 Right Upper Extremity Strength Comments: 4-/5 Left Upper Extremity Strength Comments: 4-/5 Balance: Static Standing;Dynamic Standing;Static Sitting Static Sitting Balance: Good Patient able to maintain balance without handhold support, limited postural sway Dynamic Sitting Balance: Fair Patient accepts minimal challenge, able to maintain balance while turning head/trunk Static Standing Balance: Poor Patient requires handhold support and moderate to maximal assistance to maintain position Dynamic Standing Balance: Poor Patient unable to accept challenge or move without loss of balance Please see discipline specific clinical documentation flowsheet for complete details for this therapy evaluation/treatment. SIGNATURE: NADIR Diaz/Serene PATIENT NAME: Elizabeth Modi DATE: September 03, 2019 TIME: 9:15 AM Normal [facility] THERAPY NT HNO ID: [id number] Author: Marilyn (PtSmitha Flores Service: Physical Therapy Author Type: Physical Therapist Type: Therapy (PT/OT/Speech/Resp) Filed: 09/03/2019 9:12 AM Note Text: Physical Therapy Treatment SERVICE DATE: 09/03/2019 SERVICE TIME: 0830 to 0853 ROOM: [place] [address] Recommended Discharge Disposition: Acute Rehab Recommended Discharge Disposition Comments: Pt is functioning far below his baseline level. He would benefit from intense rehabilitation program to mximize functional gains and aide in return to prior level of independence. Justification For Post Acute Needs: Anticipate patient will tolerate 3 hours of daily therapy at the time of admission to post-acute setting;Motivated PT Recommendations to Nursing: Transfer to/from chair;OOB for Meals;With assist of 2 people Device: (gait belt) PT 6 Clicks Score: 13 Precautions/Activity Restrictions: (P) Weight Bearing Restrictions;Fall Risk;Lines/Tubes/Drain s Isolation Type: None Extremity With Weight Bearing Restricted: (P) Right Lower Extremity Right Lower Extremity Weight Bearing Status: (P) NWB ASSESSMENT : Patient is progressing toward goals. Patient is able to tolerate PT session and complete bed to chair transfer. Patient does report some discomfort in RLE. Patient continuing to progress toward goals and will continue to benefit from skilled PT services. Patient Disposition at Start of Session: Supine in Bed;Call Singh in Reach Patient Disposition at End of Session: OOB in Chair;Call Singh in Reach Tolerated Full Session Without limitations Physical Therapy Problem List: Safety Deficits;Impaired Self Care;Decreased Activity Tolerance;Decreased Strength;Functional Mobility Impairment;Balance Impaired Patient /Caregiver Goals: Walk Goals for Plan of Care: Able to perform HEP with: Verbal Cues Only Transfer supine to/from sit with: Supervision Transfer sit to/from stand with: Minimal Assistance Ambulate with: Moderate Assistance Distance: 5' intervals Device: Wheeled Walker Progress Toward Goals: Progressing as expected Due To: generalized weakness Rehab Potential: Good PLAN: Treatment Frequency (times per week): 7(3-5) Current admission Treatment Interventions: Self Care / Home Management;Energy Conservation Training;Strengthening ;Functional Mobility Training;Balance Training Plan of Care developed with: Patient TREATMENT INTERVENTIONS: Therapy Diagnosis: Difficulty walking-musculoskeleta l;Muscle Weakness (generalized) Interventions Provided: Re-evaluation $ Reevaluation (33383) Billed Units: 1 unit Re-evaluation completed due to completion of R femoral endarterectomy Therapeutic Activity (78307) Treatment Minutes: 10 1 unit Skilled Intervention(s): Instructed patient in supine to sit pushing with upper extremities to sit up Instructed patient in sit to supine using safe, effective technique Instruction in sit to stand technique with proper hand placement and body positioning at edge of bed/chair. During standing at wheeled walker. Cued patient to stand tall and to look up when standing at wheeled walker.Instruction in stand to sit technique with lower extremities touching chair/bed and reaching back for surface. Patient was able to maintain static standing for at least 15 seconds prior to needing to sit down. Patient then instructed on how to complete sit pivot transfer. Cueing provided to patient to hold onto PT elbow. Instructed patient in rocking technique in order to complete sit to stand and then instructed to turn but toward recliner in order to sit. 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 Entry To Home: Stairs;With Rail Number Of Stairs Into Home: 4 Number Of Stairs To Bed/Bath: 0 Tub/Shower Type: walk in shower Laundry: main level Equipment Owned: Rollator;Wheelchair Prior Functional Level: Required Assistance;Within Functional Limits Assistance Required With: Cleaning Prior Functional Level Comments: pt independent without devices and completed ADLs OBJECTIVE: CURRENT FUNCTIONAL STATUS: Current Functional Mobility Assist Level Additional Information Supine to Sit Minimal Assistance Scooting Minimal Assistance Sit to Stand Maximal Assistance(x2) Stand to Sit Maximal Assistance(x2) Bed to Chair Maximal Assistance Bed To Chair Transfer Type: Sit Pivot Bed To Chair Transfer Equipment: Gait Belt Balance: Static Sitting;Dynamic Sitting;Static Standing Static Sitting Balance: Good Patient able to maintain balance without handhold support, limited postural sway Dynamic Sitting Balance: Fair Patient accepts minimal challenge, able to maintain balance while turning head/trunk Static Standing Balance: Poor Patient requires handhold support and moderate to maximal assistance to maintain position Activity Tolerance: Standing Activity Standing Activity: at wheeled walker Standing Activity Tolerance (in minutes): 0.25 JH-HLM: 4: Move to chair / commode Please see discipline specific clinical documentation flowsheet for complete details for this therapy evaluation/treatment. SIGNATURE: Marilyn Flores PT PATIENT NAME: Elizabeth Modi DATE: September 03, 2019 TIME: 9:08 AM Normal [facility] US ARTERIAL PVR LOWERon 08-17 US ARTERIAL PVR LOWER * * *Final Report* * * DATE OF EXAM: Sep 03 2019 11:07AM [id number] [id number] - US ARTERIAL PVR LOWER / PROCEDURE REASON: s/p surgery * * * * Physician Interpretation * * * * Non-Invasive Vascular Laboratory [facility] Lower Extremity Arterial Physiology Study Bilateral/Complete Date of service/time: 09/03/2019 9:25:00 AM Name: ELIZABETH MODI Date of : 1940 Age: 79 years Gender: M Medical History Tobacco: Former PAD: Yes Hypertension: Yes Diabetes: Yes Clinical Indication 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 TECHNIQUE -------- An arterial physiological examination was performed, including measurement of blood pressures using continuous wave Doppler and recording of plethysmographic with or without Doppler waveforms at the below-mentioned limb segments. FINDINGS -------- RIGHT SIDE AT REST Right Pressures Brachial: 99 mmHg Low thigh: 73 mmHg Calf: 50 mmHg Ankle dorsalis pedis: Not audible. Ankle posterior tibial: Below knee amputation. Digit: Below knee amputation. Right PVR Waveforms High thigh: Unable to do. Low thigh: Mildly dampened. Calf: Moderately dampened. LEFT SIDE AT REST Left Pressures Brachial: 99 mmHg Low thigh: 74 mmHg Calf: greater than 254 mmHg Ankle dorsalis pedis: 29 mmHg BECKI: 0.29 Ankle posterior tibial: greater than 254 mmHg BECKI: 2.57 Digit: 0 mmHg Not audible. Left PVR Waveforms High thigh: Unable to do. Low thigh: Mildly dampened. Calf: Moderately dampened. Ankle: Severely dampened. Transmetatarsal: Severely dampened. Digit: Severely dampened. IMPRESSION Compared to prior study of 08/22/2019, Right BECKI 0.29, Left BECKI 0.7 at DP. RIGHT SIDE Resting right ankle brachial index: Below knee amputation. Right toe brachial index: Below knee amputation. Right ankle: Unable to determine severity of disease. Post amputation of right foot above ankle. LEFT SIDE Resting left ankle brachial index: 2.57 Left toe brachial index: 0.00 Abnormal ankle brachial index at rest diagnostic of peripheral artery disease. Abnormal toe brachial index at rest is evidence of peripheral artery disease. Left ankle: Severe disease at rest. Left superficial femoral disease. Technologist: Wen Jorge RVBraydon Ordering physician: FRANCINE ROBERTS Interpreting physician: Gordo Figueroa MD Final RP Assistant Golf Professional: RICHARD Transcriprice Date/Time: Sep 03 2019 9:25A Dictated by : GORDO FIGUEROA MD This examination was interpreted and the report reviewed and electronically signed by: GORDO FIGUEROA MD on Sep 05 2019 9:48AM EST Normal [facility] US VEIN MAPPING LOWER BILon 09-03-2019 US VEIN MAPPING LOWER JIGNA * * *Final Rep ort* * * DATE OF EXAM: Sep 02 2019 10:07PM AKU [id number] - VEIN MAPPING LOWER JIGNA / PROCEDURE REASON: Leg edema, proximal vein compromise suspected * * * * Physician Interpretation * * * * BILATERAL LOWER EXTREMITY DEEP VENOUS DUPLEX DOPPLER ULTRASOUND CLINICAL HISTORY: Leg edema COMPARISON: None. TECHNIQUE: Bautista scale with compression maneuvers, Color Doppler and Spectral Doppler of the femoral, popliteal, peroneal and posterior tibial veins. Images are stored on the permanent archive. RESULT: RIGHT LOWER EXTREMITY: Deep veins * Femoral vein: The common femoral vein, profunda, and external iliac vein were not visualized due to recent surgery bandage. The superficial femoral vein appear patent and compressible. * Popliteal vein: Patent and compressible. * Calf veins: Visualized segments patent. Superficial veins * All imaged superficial veins were compressible. Superficial venous survey measurements as follows (depth mm, diameter mm): Greater Saphenous: Superior Thigh: 18.1, 3.4 Mid Thigh: 3.8, 2.9 Inferior Thigh: 4.4, 2.1 Superior Calf: 3.7, 2.0 Mid Calf: 1.9, 1.2 Inferior Calf: 1.9, 1.7 Lessor Saphenous: Superior: 4.6, 1.9 Mid: 3.5, 1.6 Inferior: 3.5, 2.1 LEFT LOWER EXTREMITY: Deep veins * Femoral vein: Patent and compressible. * Popliteal vein: Patent and compressible. * Calf veins: Visualized segments patent. Superficial veins * All imaged superficial veins were compressible. Greater Saphenous: Superior Thigh: 17.1, 3.4 Mid Thigh: 7.2, 2 Inferior Thigh: 5, 1.6 Superior Calf: 3, 2.2 Mid Calf: 3.8, 1.6 Inferior Calf: 2.8, 1.9 Lessor Saphenous: Superior: 3.2, 2.8 Mid: 3.1, 2.3 Inferior: 2.3, 2 IMPRESSION: The right external iliac vein through profunda is not visualized due to recent surgery bandage. No evidence of DVT within either lower extremity. Superficial venous measurements as above. Assistant Golf Professional: ONEL Transcribe Date/Time: Sep 02 2019 10:28P Dictated by : DWAYNE BURTON MD This examination was interpreted and the report reviewed and electronically signed by: DWAYNE BURTON MD on Sep 02 2019 10:38PM EST Normal [facility] ANES PREOPon 09-02-2019 ANES PREOP HNO ID: [id number] Author: Tammy Hinson Service: Anesthesiology Author Type: Physician Type: Anesthesia PreOp Filed: 09/02/2019 10:14 AM Note Text: ANESTHESIOLOGY DAY OF SURGERY NOTE SERVICE DATE: 09/02/2019 SERVICE TIME: 9:50 AM : 1940 Procedure(s) (LRB): ENDARTERECTOMY FEMORAL (Left) Surgeon(s): Jovanny Parmar Estimated body mass index is 27.62 kg/m? as calculated from the following: Height as of this encounter: 177.8 cm (5' 10"). Weight as of this encounter: 87.3 kg (192 lb 7.4 oz). Most recent hematocrit and potassium results: Hematocrit 33.4 09/02/2019 Potassium 4.1 09/02/2019 79yo male with DM, HL, HTN, hypothyroidism ANES DOS/PREOP NOTE: Vitals: 09/01/19202609/02/19 0502 09/02/19 0600 09/02/19 0906 BP: (!) 118/44 130/55 140/59 Pulse: 73 80 72 Resp: 18 18 18 Temp: 36 ?C (96.8 ?F) 36.8 ?C (98.2 ?F) 36.1 ?C (97 ?F) TempSrc: Oral Oral Temporal SpO2: 96% 99% 97% Weight: 87.5 kg (192 lb 14.4 oz) 87.3 kg (192 lb 7.4 oz) Height: ACTIVE PROBLEM LIST Gangrene of Foot (Hcc) Diabetes (Hcc) Htn (Hypertension) Dyslipidemia Hypothyroidism Malnutrition of Moderate Degree (Hcc) PAST MEDICAL HISTORY Diagnosis Date - DM (diabetes mellitus) (HCC) - Dyslipidemia - HTN (hypertension) - Hypothyroidism History reviewed. No pertinent surgical history. History reviewed. No pertinent family history. Social History: Social History Tobacco Use - Smoking status: Not on file Substance Use Topics - Alcohol use: Not on file - Drug use: Not on file No current facility-administered medications on file prior to encounter. Current Outpatient Medications on File Prior to Encounter Medication Sig - atorvastatin (LIPITOR) 40 mg tablet Take 40 mg by mouth once daily. - levothyroxine (SYNTHROID) 25 mcg tablet Take 25 mcg by mouth once daily. - lisinopril (ZESTRIL, PRINIVIL) 10 mg tablet Take 10 mg by mouth once daily. - pioglitazone (ACTOS) 30 mg tablet Take 30 mg by mouth once daily. - metFORMIN (GLUCOPHAGE) 1,000 mg tablet Take 1,000 mg by mouth twice daily. - glimepiride (AMARYL) 4 mg tablet Take 4 mg by mouth twice daily. Current Facility-Administered Medications Medication Dose Route Frequency Provider Last Rate Last Dose - [MAR Hold due to Transfer] magnesium sulfate in water 2 g in sterile water 50 ml 2 g INTRAVENOUS ONCE Zack Jenkins - [MAR Hold due to Transfer] dextrose 5% in NaCl 0.9% iv infusion 100 mL/hr INTRAVENOUS CONTINUOUS Francine (Res) Phyllis 100 mL/hr at 09/02/19 0459 100 mL/hr at 09/02/19 0459 - [MAR Hold due to Transfer] metoprolol succinate ER 50 mg tab(s) (TOPROL XL) 50 mg ORAL DAILY Gold Al-Quthami 50 mg at 09/02/19 0833 - [MAR Hold due to Transfer] aspirin 81 mg chewable tab(s) 81 mg ORAL DAILY Gold Al-Quthami 81 mg at 09/01/19 0850 - [MAR Hold due to Transfer] insulin lispro 4 Units pen (rapid acting) (HumaLOG KWIKPEN) 4 Units SUBCUTANEOUS w MEALS Tom (Res) Westling, DO 4 Units at 09/01/19 1759 - [MAR Hold due to Transfer] gabapentin 100 mg cap(s) (NEURONTIN) 100 mg ORAL q 8 H Tom (Res) Westling, DO 100 mg at 09/02/19 0453 - [MAR Hold due to Transfer] insulin lispro pen (rapid acting) (HumaLOG KWIKPEN) SUBCUTANEOUS w MEALS Tom (Res) Westling, DO 2 Units at 09/02/19 0832 - [MAR Hold due to Transfer] glimepiride 4 mg tab(s) (AMARYL) 4 mg ORAL DAILY WITH BREAKFAST Doris Midha 4 mg at 09/01/19 0849 - [MAR Hold due to Transfer] metFORMIN 1,000 mg tab(s) (GLUCOPHAGE) 1,000 mg ORAL BID w MEALS Doris Midha 1,000 mg at 09/01/19 1759 - [MAR Hold due to Transfer] insulin glargine 10 Units pen (long acting) (LANTUS SOLOSTAR, BASAGLAR KWIKPEN) 10 Units SUBCUTANEOUS AT BEDTIME Tom (Res) Westthelma, DO 10 Units at 09/01/19 2300 - [MAR Hold due to Transfer] heparin 5,000 Units injection 5,000 Units SUBCUTANEOUS q 12 H Tom (Res) Westthelma, DO 5,000 Units at 09/01/192028 - [MAR Hold due to Transfer] ondansetron 4 mg tab(s) (ZOFRAN) 4 mg ORAL q 6 H PRN Tom (Res) Westthelma, DO Or - [MAR Hold due to Transfer] ondansetron (PF) 4 mg injection (ZOFRAN) 4 mg INTRAVENOUS q 6 H PRN Tom (Res) Westthelma, DO - [MAR Hold due to Transfer] polyethylene glycol 3350 17 g packet (MIRALAX, GLYCOLAX) 17 g ORAL DAILY PRN Tom (Res) thelma, DO - [MAR Hold due to Transfer] docusate sodium 100 mg cap(s) (COLACE) 100 mg ORAL BID PRN Tom (Res) thelma, DO - [MAR Hold due to Transfer] magnesium hydroxide 400 mg/5 mL 30 mL (MOM) 30 mL ORAL DAILY PRN Tom (Res) Kenyon, DO - [MAR Hold due to Transfer] bisacodyl 10 mg suppository (DULCOLAX) 10 mg RECTAL DAILY PRN Tom (Res) Kenyon, DO - [MAR Hold due to Transfer] acetaminophen 650 mg tab(s) (TYLENOL) 650 mg ORAL q 6 H PRN Tom (Res) Westthelma, DO 650 mg at 09/01/19 0849 - [MAR Hold due to Transfer] atorvastatin 40 mg tab(s) (LIPITOR) 40 mg ORAL DAILY Tom (Res) Westthelma, DO 40 mg at 09/01/192028 - [MAR Hold due to Transfer] lisinopril 10 mg tab(s) (ZESTRIL, PRINIVIL) 10 mg ORAL DAILY Tom (Res) Westthelma, DO 10 mg at 09/01/19 0849 - [MAR Hold due to Transfer] levothyroxine 25 mcg tab(s) (SYNTHROID) 25 mcg ORAL DAILY Tom (Kim) DO Kenyon 25 mcg at 09/02/19 0453 - [MAR Hold due to Transfer] dextrose 40 % 15 g 15 g ORAL PRN Tom (Kim) DO Kenyon Or - [MAR Hold due to Transfer] glucagon 1 mg injection (GLUCAGEN) 1 mg INTRAMUSCULAR PRN Tom (Kim) DO Kenyon Or - [MAR Hold due to Transfer] dextrose 50% in water 25 mL syringe 12.5 g INTRAVENOUS PRN Tom (Kim) DO Kenyon Allergies: ALLERGIES No Known Allergies DOS EXAM: Adequate NPO status: Yes Anesthetic risks, benefits, alternatives, personnel and consent discussed: Yes Patient agrees to proceed: Yes Previous Anesthesia: No history of adverse event. Airway Assessment: MP 2; Neck ROM: Full ROM without neurologic symptoms; Airway Evaluation: No significant abnormalities Symptoms of Sleep Apnea: Age over 50 (79 year old) and Male gender Dentition: Edentulous Additional Physical Exam: Lungs: Patient health status unchanged since recent history and physical. See history and physical for exam findings. Cardiac: Patient health status unchanged since recent history and physical. See history and physical for exam findings. Additional Pertinent Findings: N/A Blood Products: Not anticipated for this procedure. Anesthetic Plan: General, Standard ASA Monitors Pain Management Plan: Parenteral or Oral ASA Class: 3 Other Medical Problems: None Chronic Beta Nicole medication administered within 24 hours: N/A I have interviewed and examined the patient. I have reviewed the medical record and/or the pre-anesthesia evaluation, pertinent labs, and test results. Significant changes in the patient's condition since the History and Physical, not otherwise documented in primary service progress notes: No This contains updated information obtained within 48 hours of Surgery/Procedure. SIGNATURE: Tammy Hinson MD PATIENT NAME: Elizabeth Modi DATE: September 02, 2019 TIME: 9:50 AM CSN: [id number] [facility] BRIEF OP NOTon 09-02-2019 BRIEF OP NOT HNO ID: [id number] Author: Francine Roberts Service: Vascular Surgery Author Type: Resident Type: Brief Op Note Filed: 09/02/2019 12:50 PM Note Text: Attestation signed by Jovanny Parmar at 09/30/2019 2:53 PM Attending Note I personally saw and examined the patient 09/02/19. I reviewed the resident's note. I agree with the resident's assessment and plan unless otherwise noted. Signature: Jovanny Parmar MD Date: 09/30/2019 Time: 2:53 PM BRIEF OPERATIVE / PROCEDURE NOTE LOG ID: [id number] Patient Name:Elizabeth Modi CSN: [id number] Surgery/Procedure Date: 09/02/2019 Incision/Procedure Start Time: 11:01 AM Incision Close/Procedure End Time: Surgeon(s)/Procedurali st(s) and Senior Advocate(s): Surgeon(s) and Role: * Jovanny Parmar - Primary * Francine Roberts - Resident - Assisting Distribution Collection Operator: Lori Schmid SA Procedure(s): Procedure(s) (LRB): ENDARTERECTOMY FEMORAL (Right) Anesthesia: General ASA Class: Findings: occluded SFA, profunda patent at origin Estimated Blood Loss: 450 mls Specimens: None Complications: None * No complications entered in OR log * Pre-Op/Pre-Procedure Diagnosis: * No pre-op diagnosis entered * femoral artery stenosis, s/p amputation Post-Op/Post-Procedure Diagnosis: * No post-op diagnosis entered * same SIGNATURE: Francine Roberts MD PATIENT NAME: Elizabeth Modi DATE: September 02, 2019 TIME: 12:47 PM PAGER/CONTACT #: [phone] [facility] Basic Panelon 09-02-2019 Creatinine [Mass/Vol] 0.78 mg/dL Normal 0.67-1.17 [facility] Comment on above: Result Comment: Use of this assay is not recommended for patients undergoing treatment with phenindione, due to the potential for falsely depressed results. Performed By: #### M AG #### [facility] [address] [place], [place] [address] Anion gap [Moles/Vol] 12 mmol/L Normal 8-16 [facility] Comment on above: Performed By: #### M AG #### [facility] [address] [place], [place] [address] Calcium [Mass/Vol] 8.4 mg/dL Low 8.5-10.1 [facility] Comment on above: Performed By: #### M AG #### [facility] [address] [place], [place] [address] CO2 [Moles/Vol] 24 mmol/L Normal 21-32 [facility] Comment on above: Performed By: #### M AG #### [facility] [address] [place], [place] [address] Urea nitrogen [Mass/Vol] 24 mg/dL High 7-18 [facility] Comment on above: Performed By: #### M AG #### [facility] [address] [place], [place] [address] Glucose [Mass/Vol] 148 mg/dL High 70-99 [facility] Comment on above: Performed By: #### M AG #### [facility] [address] [place], [place] [address] Chloride [Moles/Vol] 104 mmol/L Normal 98-107 [facility] Comment on above: Performed By: #### M AG #### [facility] [address] [place], [place] [address] Potassium [Moles/Vol] 4.1 mmol/L Normal 3.5-5.1 [facility] Comment on above: Performed By: #### M AG #### [facility] [address] [place], [place] [address] Sodium [Moles/Vol] 136 mmol/L Normal 136-145 [facility] Comment on above: Performed By: #### M AG #### [facility] [address] [place] [address] CONSULT PROGon 09-02-2019 CONSULT PROG HNO ID: [id number] Author: Doris Eden Service: Endocrinology Author Type: Physician Type: Consult Progress Note Filed: 09/02/2019 1:35 PM Note Text: ENDOCRINOLOGY CONSULT PROGRESS NOTE SERVICE DATE: 09/02/2019 SERVICE TIME: 1:25 PM Subjective INTERVAL HPI: Pt followed for diabetes mellitus type 2 with complications. 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 Had LE angiogram on 08/26. Had femoral endarterectomy today. In ICU. Drowsy, no pain. PT following. DIET NPO to start clears later. On Boost Recent Labs 09/02/19 0507 09/01/19 2033 09/01/19 1649 09/01/19 1155 08/31/19 0420 GLUC 148* -- -- -- -- 85 GLUCOSEMETER -- 163* 94 108* < > -- < > = values in this interval not displayed. Current Facility-Administered Medications Medication Dose Route Frequency - heparin 5,000 Units injection 5,000 Units SUBCUTANEOUS q 12 H - ondansetron 4 mg tab(s) (ZOFRAN) 4 mg ORAL q 6 H PRN Or - ondansetron (PF) 4 mg injection (ZOFRAN) 4 mg INTRAVENOUS q 6 H PRN - polyethylene glycol 3350 17 g packet (MIRALAX, GLYCOLAX) 17 g ORAL DAILY PRN - docusate sodium 100 mg cap(s) (COLACE) 100 mg ORAL BID PRN - magnesium hydroxide 400 mg/5 mL 30 mL (MOM) 30 mL ORAL DAILY PRN - bisacodyl 10 mg suppository (DULCOLAX) 10 mg RECTAL DAILY PRN - acetaminophen 650 mg tab(s) (TYLENOL) 650 mg ORAL q 6 H PRN - atorvastatin 40 mg tab(s) (LIPITOR) 40 mg ORAL DAILY - lisinopril 10 mg tab(s) (ZESTRIL, PRINIVIL) 10 mg ORAL DAILY - levothyroxine 25 mcg tab(s) (SYNTHROID) 25 mcg ORAL DAILY - dextrose 40 % 15 g 15 g ORAL PRN Or - glucagon 1 mg injection (GLUCAGEN) 1 mg INTRAMUSCULAR PRN Or - dextrose 50% in water 25 mL syringe 12.5 g INTRAVENOUS PRN - gabapentin 100 mg cap(s) (NEURONTIN) 100 mg ORAL q 8 H - insulin lispro pen (rapid acting) (HumaLOG KWIKPEN) SUBCUTANEOUS w MEALS - glimepiride 4 mg tab(s) (AMARYL) 4 mg ORAL DAILY WITH BREAKFAST - metFORMIN 1,000 mg tab(s) (GLUCOPHAGE) 1,000 mg ORAL BID w MEALS - insulin glargine 10 Units pen (long acting) (LANTUS SOLOSTAR, BASAGLAR KWIKPEN) 10 Units SUBCUTANEOUS AT BEDTIME - insulin lispro 4 Units pen (rapid acting) (HumaLOG KWIKPEN) 4 Units SUBCUTANEOUS w MEALS - metoprolol succinate ER 50 mg tab(s) (TOPROL XL) 50 mg ORAL DAILY - aspirin 81 mg chewable tab(s) 81 mg ORAL DAILY - heparin 3,000 Units in NaCl 0.9% 500 mL irrigation 3,000 Units IRRIGATION ONCE - dextrose 5% in NaCl 0.9% iv infusion 100 mL/hr INTRAVENOUS CONTINUOUS - magnesium sulfate in water 2 g in sterile water 50 ml 2 g INTRAVENOUS ONCE Objective PHYSICAL EXAM: BP 130/55 Pulse 80 Temp (Src) 98.2 (Oral) Resp 18 Ht 5' 10" (1.78m) Wt 192 lb 7.4 oz (87.3kg) SpO2 99% BMI 27.62 kg/(m2). O2 Therapy: Room Air HEENT: has O2 mask (post-op) Lungs CTA anteriorly Heart S1 S2 Abdomen soft, flat, NT Extremities: dressing on R leg stump; ? DATA: Diagnostic tests reviewed for today's visit: Most recent labs and imaging results. Assessment/Plan Diabetes mellitus type 2, 37 years duration; uncontrolled with complications; HbA1c 9.8. Took insulin in past a few years ago. Started on prog Lantus 10 units qhs on 08/22. Contd home Rx, Metformin 1 gm bid and Glimepiride 4 mg po daily am. Still had hyperglycemia; added prandial humalog 4 units qac tid on 37 pm. BS high on 08/24 night; pt did not eat well (30%) and Humalog was held! BS high at hs on 08/26, >300; no pattern, denies having snack? Eating well and on Boost also, has juices occ! BS better now. Watch on current Rx, Lantus/Humalog/oral agents. BS occ <100, overall stable. NO JUICES. Held oral agents/Humalog today am, npo. BS stable. Stop D5 when taking po. 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; had B/L LE angiogram to determine definitive management (BKA vs AKA) PVD, had right common femoral endearterectomy today HTN (hypertension) POA: Yes Assessment AND Plan: on Rx Dyslipidemia POA: Yes Assessment AND Plan: on Rx Hypothyroidism POA: Yes Assessment AND Plan: on LT4 Malnutrition of moderate degree (HCC) POA: Yes Assessment AND Plan: on Boost supplements SIGNATURE: Doris Eden MD PATIENT NAME: Elizabeth Modi DATE: September 02, 2019 TIME: 1:35 PM PAGER: [phone] Normal [facility] Hemogramon 09-02-2019 Erythrocyte distribution width (RBC) [Ratio] 14.9 % High 11.6-14.4 [facility] Comment on above: Performed By: #### C BC1 #### [address] [address] Hematocrit (Bld) [Volume fraction] 33.4 % Low 40.1-51.0 [facility] Comment on above: Performed By: #### C BC1 #### [address] [address] Hemoglobin (Bld) [Mass/Vol] 10.3 g/dL Low 13.7-17.5 [facility] Comment on above: Performed By: #### C BC1 #### [facility] [address] [place], [place] [address] MCH (RBC) [Entitic mass] 28.1 pg Normal 25.7-32.2 [facility] Comment on above: Performed By: #### C BC1 #### [address] [address] MCHC (RBC) [Mass/Vol] 30.8 % Low 32.3-36.5 [facility] Comment on above: Performed By: #### C BC1 #### [facility] [address] [place], [place] [address] MCV (RBC) [Entitic vol] 91.0 fL Normal 83.2-95.6 [facility] Comment on above: Performed By: #### C BC1 #### [facility] [address] [place] [address] Platelet mean volume (Bld) [Entitic vol] 9.7 fL Normal 8.7-12.0 [facility] Comment on above: Performed By: #### C BC1 #### [facility] [address] [place] [address] Platelets (Bld) [#/Vol] 425 thou/cmm High 141-365 [facility] Comment on above: Performed By: #### C BC1 #### [facility] [address] [place] [address] RBC (Bld) [#/Vol] 3.67 mil/cmm Low 4.63-6.08 [facility] Comment on above: Performed By: #### C BC1 #### [facility] [address] [place] [address] RDW SD 47.8 fl High 36.1-45.8 [facility] Comment on above: Performed By: #### C BC1 #### [facility] [address] [place], [place] [address] WBC (Bld) [#/Vol] 9.66 thou/cmm High 4.23-9.07 [facility] Comment on above: Performed By: #### C BC1 #### [facility] [address] [place] [address] Magnesium Bloodon 09-02-2019 Magnesium [Mass/Vol] 1.5 mg/dL Low 1.6-2.6 [facility] Comment on above: Performed By: #### M AG #### [facility] [address] [place] [address] OPERATIVE NOon 09-02-2019 OPERATIVE NO HNO ID: [id number] Author: Jovanny Parmar Service: Vascular Surgery Author Type: Physician Type: Operative Report Filed: 09/30/2019 2:43 PM Note Text: [facility] - Operative Report ELIZABETH MODI : 1940 AGE: 79. SEX: M PATIENT TYPE: I HOSP SVC: KEENAN LOCATION: [facility] ATTENDING PHYSICIAN: JOVANNY PARMAR CSN NUMBER: [id number] DATE OF SURGERY/PROCEDURE: 09/02/2019 INCISION/PROCEDURE START TIME: 12:28 PM INCISION CLOSE/PROCEDURE END TIME: 2:14 PM PREOPERATIVE DIAGNOSIS: Gangrene, right lower extremity. POSTOPERATIVE DIAGNOSIS: Gangrene, right lower extremity. SURGEON: Jovanny Parmar MD GALVANOMETER ASSEMBLER: Francine Roberts. SURGERY/PROCEDURE: Right femoral endarterectomy with patch angioplasty. ANESTHESIA: General. DESCRIPTION OF PROCEDURE: The patient was seen in the preoperative area. Risks and benefits of procedure were reviewed with the patient. He was brought back to the operating room where general anesthesia was induced. He was prepped and draped in sterile fashion. Appropriate preoperative antibiotics were given at the time of induction. Incision was made over the area of the patient's right common femoral artery. This was dissected down to subcutaneous tissue until the right common femoral artery was identified. This was dissected free from surrounding tissue up to the level of the inguinal ligament. There was diffuse calcification throughout the right common femoral artery. This was then dissected distally over the bifurcation of the profunda femoris, superficial femoral, and proximal common femoral artery with vessel loops. The large branch of the saphenous vein was overlying the bifurcation of the superficial femoral and profunda femoris. This was suture ligated in order to ease exposure. The patient was then bolused with heparin after 3 minutes, the femoral clamp was placed over the proximal common femoral artery and vessel loops were tightened distally. Arteriotomy was made, and the endarterectomy was performed in standard fashion. The profunda was also flushed with heparinized saline to verify that the origin of the profunda was patent. After completion of the endarterectomy, a bovine pericardial patch was used for the patch angioplasty. This was sutured into place with a series of running 6-0 Prolene sutures. After completion of the angioplasty, the common femoral artery was opened, followed by the profunda. Hemostasis was achieved within the wound. Incision was then closed with 2 layers of running 3-0 Vicryl sutures and 4-0 undyed Monocryl in the skin. The patient tolerated the procedure well. He will be sent to recovery in stable condition. Jovanny Parmar MD LM:[id number] /[id number] Normal [facility] PROGRESSon 09-02-2019 PROGRESS HNO ID: [id number] Author: Zack Jenkins Service: Hospital Medicine Author Type: Physician Type: Progress Notes Filed: 09/02/2019 5:22 PM Note Text: DEPARTMENT OF HOSPITAL MEDICINE PROGRESS NOTE SERVICE DATE: 09/02/2019 SERVICE TIME: 9am Hospital Medicine/Primary Attending: Zack Jenkins, DO NIGHT AND WEEKEND COVERAGE: After 7pm please page [phone] CHIEF COMPLAINT: No new complaints SUBJECTIVE: Pt seen and examined before procedure. No acute events overnight. Denies CP, SOB, NVD, headache, fever/chills or abdominal pain. OBJECTIVE: PHYSICAL EXAM: BP 115/46 Pulse 64 Temp (Src) 96.8 (Temporal) Resp 15 Ht 5' 10" (1.78m) Wt 192 lb 7.4 oz (87.3kg) SpO2 100% BMI 27.62 kg/(m2). O2 Therapy: Room Air, Liters: 2 General - AANDOx3, NAD CV - RRR S1 S2, No M/R/G RESP - CTAB,??No wheezes, ronchi, rales ABD - soft, NT, ND +BS? EXT -?R foot amputation,?no clubbing/cyanosis extremities, moves all extremities, minimal ttp today NEURO - CN II-XII grossly intact, no focal deficits MEDICATIONS: Current Facility-Administered Medications Medication Dose Route Frequency - ondansetron 4 mg tab(s) (ZOFRAN) 4 mg ORAL q 6 H PRN Or - ondansetron (PF) 4 mg injection (ZOFRAN) 4 mg INTRAVENOUS q 6 H PRN - polyethylene glycol 3350 17 g packet (MIRALAX, GLYCOLAX) 17 g ORAL DAILY PRN - docusate sodium 100 mg cap(s) (COLACE) 100 mg ORAL BID PRN - magnesium hydroxide 400 mg/5 mL 30 mL (MOM) 30 mL ORAL DAILY PRN - bisacodyl 10 mg suppository (DULCOLAX) 10 mg RECTAL DAILY PRN - atorvastatin 40 mg tab(s) (LIPITOR) 40 mg ORAL DAILY - lisinopril 10 mg tab(s) (ZESTRIL, PRINIVIL) 10 mg ORAL DAILY - levothyroxine 25 mcg tab(s) (SYNTHROID) 25 mcg ORAL DAILY - dextrose 40 % 15 g 15 g ORAL PRN Or - glucagon 1 mg injection (GLUCAGEN) 1 mg INTRAMUSCULAR PRN Or - dextrose 50% in water 25 mL syringe 12.5 g INTRAVENOUS PRN - gabapentin 100 mg cap(s) (NEURONTIN) 100 mg ORAL q 8 H - insulin lispro pen (rapid acting) (HumaLOG KWIKPEN) SUBCUTANEOUS w MEALS - glimepiride 4 mg tab(s) (AMARYL) 4 mg ORAL DAILY WITH BREAKFAST - metFORMIN 1,000 mg tab(s) (GLUCOPHAGE) 1,000 mg ORAL BID w MEALS - insulin glargine 10 Units pen (long acting) (LANTUS SOLOSTAR, BASAGLAR KWIKPEN) 10 Units SUBCUTANEOUS AT BEDTIME - insulin lispro 4 Units pen (rapid acting) (HumaLOG KWIKPEN) 4 Units SUBCUTANEOUS w MEALS - metoprolol succinate ER 50 mg tab(s) (TOPROL XL) 50 mg ORAL DAILY - magnesium sulfate in water 2 g in sterile water 50 ml 2 g INTRAVENOUS ONCE - acetaminophen 975 mg tab(s) (TYLENOL) 975 mg ORAL q 6 H - [START ON 09/03/2019] aspirin 81 mg chewable tab(s) 81 mg ORAL DAILY - [START ON 09/03/2019] heparin 5,000 Units injection 5,000 Units SUBCUTANEOUS q 12 H - oxyCODONE IR 5-10 mg tab(s) (ROXICODONE) 5-10 mg ORAL q 6 H PRN - morphine 2 mg injection 2 mg INTRAVENOUS q 2 H PRN DATA: Diagnostic tests reviewed for today's visit: CBC: Recent Labs 09/02/19 0507 WBC 9.66* RBC 3.67* HB 10.3* HCT 33.4* PLT 425* MCV 91.0 MCH 28.1 MPV 9.7 RDW 14.9* Coags: No results for input(s): INR, APTT in the last 24 hours. Invalid input(s): PT BMP: Recent Labs 09/02/19 0507 NA 136 K 4.1 CHLOR 104 CO2 24 BUN 24* CREAT 0.78 GLUC 148* CMP: Recent Labs 09/02/19 0507 NA 136 K 4.1 CHLOR 104 CO2 24 BUN 24* CREAT 0.78 GLUC 148* CA 8.4* MG 1.5* ANION 12 Cardiac Enzymes: No results for input(s): CK, MB, CKMB, TROPT in the last 24 hours. Liver Function, Amylase, Lipase: No results for input(s): TPROT, ALB, ALT, AST, ALKPHOS, TBILI, AMYLASE, LIPASE, LACTATE in the last 24 hours. MG/PHOS: Recent Labs 09/02/19 0507 MG 1.5* P 2.9 Renal Panel: Recent Labs 09/02/19 0507 CREAT 0.78 BUN 24* GLUC 148* CA 8.4* P 2.9 CHLOR 104 K 4.1 CO2 24 NA 136 Heme: No results for input(s): RETICP, ABSRETIC, LD, STEPHAN, FE, TIBC, TRANSFERSAT in the last 24 hours. 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 #acute on chronic?anemia-improve d- in setting of recent surgery ? #Hypomagnesemia- magsulf 2g IV today- repeat Mag?in AM. Replace PRN. ? #hx PAD-continue statin?and aspirin, management per vascular?surgery? ? #DM 2, uncontrolled-patient had been on insulin in past, unable to afford. continue SSIC, appreciate Endocrinology consult. ? #hypothyroidism-contin ue synthroid ? #hypophos-replace?PRN, ?and check?phosphorus?daily ? #HTN-continue home regimen, monitor BP closely ? #HLD-continue?statin? ? #immobility-PT and OT Plan of care discussed with: Provider, RN, Patient SIGNATURE: Zack Jenkins DO PATIENT NAME: Elizabeth Modi DATE: September 02, 2019 TIME: 5:19 PM PAGER/CONTACT #: Team color pager Disclaimer: Portions of this note may have been generated using [employer] voice recognition software. Reasonable efforts were made to correct any dictation errors that resulted due to the programming of this software but some may still be present. [facility] PROGRESS HNO ID: [id number] Author: Francine Roberts Service: Vascular Surgery Author Type: Resident Type: Progress Notes Filed: 09/02/2019 6:46 AM Note Text: Attestation signed by Jovanny Parmar at 09/30/2019 2:53 PM Attending Note I personally saw and examined the patient 09/02/19. I reviewed the resident's note. I agree with the resident's assessment and plan unless otherwise noted. Signature: Jovanny Parmar MD Date: 09/30/2019 Time: 2:52 PM Vascular Surgery Progress Note SERVICE DATE: 09/02/2019 Vascular AND Thoracic Surgery Service Pager: For questions or concerns Mon-Fri 6a-5p please page [phone]. After 5pm and on Weekends and Holidays, please page [phone] if in ICU or [phone] if on RNF. Subjective SUBJECTIVE: NAEON. Denies pain. NPO for OR. Objective OBJECTIVE: Vitals: Temp (24hrs), Av.4 ?C (97.6 ?F), Min:36 ?C (96.8 ?F), Max:36.8 ?C (98.2 ?F) BP 130/55 Pulse 80 Temp 36.8 ?C (98.2 ?F) (Oral) Resp 18 Ht 177.8 cm (5' 10") Wt 87.3 kg (192 lb 7.4 oz) SpO2 99% BMI 27.62 kg/m? O2 Therapy: Room Air IANDO: MEDICATIONS Current Facility-Administered Medications Medication Dose Route Frequency - dextrose 5% in NaCl 0.9% iv infusion 100 mL/hr INTRAVENOUS CONTINUOUS - heparin 3,000 Units in NaCl 0.9% 500 mL irrigation 3,000 Units IRRIGATION ONCE - metoprolol succinate ER 50 mg tab(s) (TOPROL XL) 50 mg ORAL DAILY - aspirin 81 mg chewable tab(s) 81 mg ORAL DAILY - insulin lispro 4 Units pen (rapid acting) (HumaLOG KWIKPEN) 4 Units SUBCUTANEOUS w MEALS - gabapentin 100 mg cap(s) (NEURONTIN) 100 mg ORAL q 8 H - insulin lispro pen (rapid acting) (HumaLOG KWIKPEN) SUBCUTANEOUS w MEALS - glimepiride 4 mg tab(s) (AMARYL) 4 mg ORAL DAILY WITH BREAKFAST - metFORMIN 1,000 mg tab(s) (GLUCOPHAGE) 1,000 mg ORAL BID w MEALS - insulin glargine 10 Units pen (long acting) (LANTUS SOLOSTAR, BASAGLAR KWIKPEN) 10 Units SUBCUTANEOUS AT BEDTIME - heparin 5,000 Units injection 5,000 Units SUBCUTANEOUS q 12 H - ondansetron 4 mg tab(s) (ZOFRAN) 4 mg ORAL q 6 H PRN Or - ondansetron (PF) 4 mg injection (ZOFRAN) 4 mg INTRAVENOUS q 6 H PRN - polyethylene glycol 3350 17 g packet (MIRALAX, GLYCOLAX) 17 g ORAL DAILY PRN - docusate sodium 100 mg cap(s) (COLACE) 100 mg ORAL BID PRN - magnesium hydroxide 400 mg/5 mL 30 mL (MOM) 30 mL ORAL DAILY PRN - bisacodyl 10 mg suppository (DULCOLAX) 10 mg RECTAL DAILY PRN - acetaminophen 650 mg tab(s) (TYLENOL) 650 mg ORAL q 6 H PRN - atorvastatin 40 mg tab(s) (LIPITOR) 40 mg ORAL DAILY - lisinopril 10 mg tab(s) (ZESTRIL, PRINIVIL) 10 mg ORAL DAILY - levothyroxine 25 mcg tab(s) (SYNTHROID) 25 mcg ORAL DAILY - dextrose 40 % 15 g 15 g ORAL PRN Or - glucagon 1 mg injection (GLUCAGEN) 1 mg INTRAMUSCULAR PRN Or - dextrose 50% in water 25 mL syringe 12.5 g INTRAVENOUS PRN Labs: Recent Labs 09/02/19 0507 09/01/19 0615 08/31/19 0420 NA -- -- 136 K -- -- 3.9 CHLOR -- -- 106 CO2 -- -- 23 BUN -- -- 21* CREAT -- -- 0.76 GLUC -- -- 85 ANION -- -- 11 CA -- -- 8.2* MG -- -- 1.1* P -- -- 3.3 WBC 9.66* 7.69 8.81 HB 10.3* 8.5* 10.0* HCT 33.4* 27.1* 31.2* PLT 425* 334 385* Exam: GENERAL: No distress, Alert NEURO: AANDOx3. HEENT: normocephalic, atraumatic LUNGS: Equal chest rise bilaterally, Unlabored breathing O2 Therapy: Room Air CARDIAC: Regular rate and rhythm as above ABDOMEN: Soft, non-tender, non-distended, no masses or organomegaly EXTREMITIES: Right foot amputation. No edema. Dressing C/D/I without evidence of oozing. SKIN: Skin color, texture, turgor normal, No rashes or lesions ASSESSMENT AND PLAN: Active Hospital Problems Diagnosis Date Noted - Malnutrition of moderate degree (HCC) 08/22/2019 - Gangrene of foot (HCC) 08/21/2019 - Diabetes (HCC) 08/21/2019 - HTN (hypertension) 08/21/2019 - Dyslipidemia 08/21/2019 - Hypothyroidism 08/21/2019 This is a 79 year old male with PMH of thyroid disease, HTN, dyslipidemia,claudicat ion, DM. 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 Antibiotics stopped 08/23, remains non-septic. ? Plan: -?DIET NPO ??? - Regular wound examinations, BID dressing changes, wound care following - PT/OT acute rehab - SQH ppx - Mobilization as able, out of bed to chair?as tolerated - Right femoral endarterectomy today, then determination on AKA/BKA - consent obtained, OK for DVT ppx this morning - still awaiting vein mapping - PAD-continue statin?and aspirin -?Further care per primary SIGNATURE: Francine Roberts MD PATIENT NAME: Elizabeth Modi DATE: September 02, 2019 TIME: 6:21 AM Vascular AND Thoracic Surgery Service Pager: For questions or concerns Mon-Mon 6a-5p please page [phone]. After 5pm and on Weekends and Holidays, please page [phone] if in ICU or [phone] if on RNF. [facility] PT EDon 09-02-2019 PT ED HNO ID: [id number] Author: Chelsea (Rn) Shun Paz RN Service: ? Author Type: Registered Nurse Type: Patient Education Filed: 09/02/2019 9:10 AM Note Text: PRE OP LEARNING ASSESSMENT PROCEDURE/SURGERY: READINESS TO LEARN COGNITIVE ABILITY: Alert and oriented MOTIVATION TO LEARN: Interested FAMILY SUPPORT: High - Very involved in pt care PATIENT LEARNS BEST BY: Multiple Methods FACTORS AFFECTING LEARNING: None PHYSICAL LIMITATIONS AFFECTING LEARNING: None Electronically Signed By: Chelsea Estrella RN In Department: [place] SURGERY OR [facility] Phosphorus Bloodon 0 Phosphate [Mass/Vol] 2.9 mg/dL Normal 2.5-4.9 [facility] Comment on above: Performed By: #### P 8 #### [place] [address] CONSULT PROGon 09-01-2019 CONSULT PROG HNO ID: [id number] Author: Doris Eden Service: Endocrinology Author Type: Physician Type: Consult Progress Note Filed: 09/01/2019 9:12 AM Note Text: ENDOCRINOLOGY CONSULT PROGRESS NOTE SERVICE DATE: 09/01/2019 SERVICE TIME: 9:05 AM Subjective INTERVAL HPI: Pt followed for diabetes mellitus type 2 with complications. 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 Had LE angiogram on 08/26. For femoral endarterectomy on 09/01. C/o dull pain, no SOB, no nausea. Eating well. PT following. DIET HEART HEALTHY DIET NPO has juices, sugar occ! On Boost also. Recent Labs 09/01/19 0733 08/31/19202608/31/19 1632 08/31/19 0420 08/30/19 0300 GLUC -- -- -- -- 85 -- 70 GLUCOSEMETER 107* 121* 141* < > -- < > -- < > = values in this interval not displayed. Current Facility-Administered Medications Medication Dose Route Frequency - heparin 5,000 Units injection 5,000 Units SUBCUTANEOUS q 12 H - ondansetron 4 mg tab(s) (ZOFRAN) 4 mg ORAL q 6 H PRN Or - ondansetron (PF) 4 mg injection (ZOFRAN) 4 mg INTRAVENOUS q 6 H PRN - polyethylene glycol 3350 17 g packet (MIRALAX, GLYCOLAX) 17 g ORAL DAILY PRN - docusate sodium 100 mg cap(s) (COLACE) 100 mg ORAL BID PRN - magnesium hydroxide 400 mg/5 mL 30 mL (MOM) 30 mL ORAL DAILY PRN - bisacodyl 10 mg suppository (DULCOLAX) 10 mg RECTAL DAILY PRN - acetaminophen 650 mg tab(s) (TYLENOL) 650 mg ORAL q 6 H PRN - atorvastatin 40 mg tab(s) (LIPITOR) 40 mg ORAL DAILY - lisinopril 10 mg tab(s) (ZESTRIL, PRINIVIL) 10 mg ORAL DAILY - levothyroxine 25 mcg tab(s) (SYNTHROID) 25 mcg ORAL DAILY - dextrose 40 % 15 g 15 g ORAL PRN Or - glucagon 1 mg injection (GLUCAGEN) 1 mg INTRAMUSCULAR PRN Or - dextrose 50% in water 25 mL syringe 12.5 g INTRAVENOUS PRN - gabapentin 100 mg cap(s) (NEURONTIN) 100 mg ORAL q 8 H - insulin lispro pen (rapid acting) (HumaLOG KWIKPEN) SUBCUTANEOUS w MEALS - glimepiride 4 mg tab(s) (AMARYL) 4 mg ORAL DAILY WITH BREAKFAST - metFORMIN 1,000 mg tab(s) (GLUCOPHAGE) 1,000 mg ORAL BID w MEALS - insulin glargine 10 Units pen (long acting) (LANTUS SOLOSTAR, BASAGLAR KWIKPEN) 10 Units SUBCUTANEOUS AT BEDTIME - insulin lispro 4 Units pen (rapid acting) (HumaLOG KWIKPEN) 4 Units SUBCUTANEOUS w MEALS - metoprolol succinate ER 50 mg tab(s) (TOPROL XL) 50 mg ORAL DAILY - aspirin 81 mg chewable tab(s) 81 mg ORAL DAILY - [START ON 09/02/2019] heparin 3,000 Units in NaCl 0.9% 500 mL irrigation 3,000 Units IRRIGATION ONCE - [START ON 09/02/2019] dextrose 5% in NaCl 0.9% iv infusion 100 mL/hr INTRAVENOUS CONTINUOUS Objective PHYSICAL EXAM: BP 114/43 Pulse 74 Temp (Src) 98.2 (Temporal) Resp 17 Ht 5' 10" (1.78m) Wt 192 lb 3.9 oz (87.2kg) SpO2 97% BMI 27.58 kg/(m2). O2 Therapy: Room Air HEENT moist mouth Lungs CTA anteriorly Heart S1 S2 Abdomen soft, flat, NT Extremities: dressing on R leg stump; dressing left ankle lat ? DATA: Diagnostic tests reviewed for today's visit: Most recent labs and imaging results. Assessment/Plan Diabetes mellitus type 2, 37 years duration; uncontrolled with complications; HbA1c 9.8. Took insulin in past a few years ago. Started on prog Lantus 10 units qhs on 08/22. Contd home Rx, Metformin 1 gm bid and Glimepiride 4 mg po daily am. Still had hyperglycemia; added prandial humalog 4 units qac tid on 08/23 pm. BS high on 08/24 night; pt did not eat well (30%) and Humalog was held! BS high at hs on 08/26, >300; no pattern, denies having snack? Eating well and on Boost also, has juices occ! BS better now. Watch on current Rx, Lantus/Humalog/oral agents. BS occ <100, overall stable. NO JUICES. 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; had B/L LE angiogram to determine definitive management (BKA vs AKA) PVD, for right common femoral endearterectomy on 09/01 HTN (hypertension) POA: Yes Assessment AND Plan: on Rx Dyslipidemia POA: Yes Assessment AND Plan: on Rx Hypothyroidism POA: Yes Assessment AND Plan: on LT4 Malnutrition of moderate degree (HCC) POA: Yes Assessment AND Plan: on Boost supplements SIGNATURE: Doris Eden MD PATIENT NAME: Elizabeth Modi DATE: September 01, 2019 TIME: 9:12 AM PAGER: [phone] Normal [facility] Hemogramon 09-01-2019 Erythrocyte distribution width (RBC) [Ratio] 14.9 % High 11.6-14.4 [facility] Comment on above: Performed By: #### M AG #### [facility] [address] [place] [address] Hematocrit (Bld) [Volume fraction] 27.1 % Low 40.1-51.0 [facility] Comment on above: Performed By: #### M AG #### [facility] [address] [place] [address] Hemoglobin (Bld) [Mass/Vol] 8.5 g/dL Low 13.7-17.5 [facility] Comment on above: Performed By: #### M AG #### [place] [address] MCH (RBC) [Entitic mass] 28.1 pg Normal 25.7-32.2 [facility] Comment on above: Performed By: #### M AG #### [facility] [address] [place] [address] MCHC (RBC) [Mass/Vol] 31.4 % Low 32.3-36.5 [facility] Comment on above: Performed By: #### M AG #### [place] [address] MCV (RBC) [Entitic vol] 89.7 fL Normal 83.2-95.6 [facility] Comment on above: Performed By: #### M AG #### [facility] [address] [place] [address] Platelet mean volume (Bld) [Entitic vol] 9.4 fL Normal 8.7-12.0 [facility] Comment on above: Performed By: #### M AG #### [facility] [address] [place], [place] [address] Platelets (Bld) [#/Vol] 334 thou/cmm Normal 141-365 [facility] Comment on above: Performed By: #### M AG #### [facility] [address] [place], [place] [address] RBC (Bld) [#/Vol] 3.02 mil/cmm Low 4.63-6.08 [facility] Comment on above: Performed By: #### M AG #### [facility] [address] [place], [place] [address] RDW SD 46.4 fl High 36.1-45.8 [facility] Comment on above: Performed By: #### M AG #### [facility] [address] [place], [place] [address] WBC (Bld) [#/Vol] 7.69 thou/cmm Normal 4.23-9.07 [facility] Comment on above: Performed By: #### M AG #### [facility] [address] [place], [place] [address] PROGRESSon 09-01-2019 PROGRESS HNO ID: [id number] Author: Zack Jenkins Service: Hospital Medicine Author Type: Physician Type: Progress Notes Filed: 09/01/2019 4:10 PM Note Text: DEPARTMENT OF HOSPITAL MEDICINE PROGRESS NOTE SERVICE DATE: 09/01/2019 SERVICE TIME: 4:07 PM Hospital Medicine/Primary Attending: Zack Jenkins, DO NIGHT AND WEEKEND COVERAGE: After 7pm please page [phone] CHIEF COMPLAINT: No new complaints SUBJECTIVE: Pt seen and examined. No acute events overnight. Denies CP, SOB, NVD, headache, fever/chills or abdominal pain. OBJECTIVE: PHYSICAL EXAM: BP 114/49[rn notified[ Pulse 72 Temp (Src) 97.3 (Oral) Resp 18 Ht 5' 10" (1.78m) Wt 192 lb 3.9 oz (87.2kg) SpO2 96% BMI 27.58 kg/(m2). O2 Therapy: Room Air, Liters: 2 General - AANDOx3, NAD CV - RRR S1 S2, No M/R/G RESP - CTAB,??No wheezes, ronchi, rales ABD - soft, NT, ND +BS? EXT -?R foot amputation,?dressing clean/dry,?no clubbing/cyanosis extremities, moves all extremities NEURO - CN II-XII grossly intact, no focal?neuro deficits MEDICATIONS: Current Facility-Administered Medications Medication Dose Route Frequency - heparin 5,000 Units injection 5,000 Units SUBCUTANEOUS q 12 H - ondansetron 4 mg tab(s) (ZOFRAN) 4 mg ORAL q 6 H PRN Or - ondansetron (PF) 4 mg injection (ZOFRAN) 4 mg INTRAVENOUS q 6 H PRN - polyethylene glycol 3350 17 g packet (MIRALAX, GLYCOLAX) 17 g ORAL DAILY PRN - docusate sodium 100 mg cap(s) (COLACE) 100 mg ORAL BID PRN - magnesium hydroxide 400 mg/5 mL 30 mL (MOM) 30 mL ORAL DAILY PRN - bisacodyl 10 mg suppository (DULCOLAX) 10 mg RECTAL DAILY PRN - acetaminophen 650 mg tab(s) (TYLENOL) 650 mg ORAL q 6 H PRN - atorvastatin 40 mg tab(s) (LIPITOR) 40 mg ORAL DAILY - lisinopril 10 mg tab(s) (ZESTRIL, PRINIVIL) 10 mg ORAL DAILY - levothyroxine 25 mcg tab(s) (SYNTHROID) 25 mcg ORAL DAILY - dextrose 40 % 15 g 15 g ORAL PRN Or - glucagon 1 mg injection (GLUCAGEN) 1 mg INTRAMUSCULAR PRN Or - dextrose 50% in water 25 mL syringe 12.5 g INTRAVENOUS PRN - gabapentin 100 mg cap(s) (NEURONTIN) 100 mg ORAL q 8 H - insulin lispro pen (rapid acting) (HumaLOG KWIKPEN) SUBCUTANEOUS w MEALS - glimepiride 4 mg tab(s) (AMARYL) 4 mg ORAL DAILY WITH BREAKFAST - metFORMIN 1,000 mg tab(s) (GLUCOPHAGE) 1,000 mg ORAL BID w MEALS - insulin glargine 10 Units pen (long acting) (LANTUS SOLOSTAR, BASAGLAR KWIKPEN) 10 Units SUBCUTANEOUS AT BEDTIME - insulin lispro 4 Units pen (rapid acting) (HumaLOG KWIKPEN) 4 Units SUBCUTANEOUS w MEALS - metoprolol succinate ER 50 mg tab(s) (TOPROL XL) 50 mg ORAL DAILY - aspirin 81 mg chewable tab(s) 81 mg ORAL DAILY - [START ON 09/02/2019] heparin 3,000 Units in NaCl 0.9% 500 mL irrigation 3,000 Units IRRIGATION ONCE - [START ON 09/02/2019] dextrose 5% in NaCl 0.9% iv infusion 100 mL/hr INTRAVENOUS CONTINUOUS DATA: Diagnostic tests reviewed for today's visit: CBC: Recent Labs 09/01/19 0615 WBC 7.69 RBC 3.02* HB 8.5* HCT 27.1* PLT 334 MCV 89.7 MCH 28.1 MPV 9.4 RDW 14.9* Coags: No results for input(s): INR, APTT in the last 24 hours. Invalid input(s): PT BMP: No results for input(s): NA, K, CHLOR, CO2, BUN, CREAT, GLUC in the last 24 hours. CMP: No results for input(s): NA, K, CHLOR, CO2, BUN, CREAT, GLUC, TPROT, CA, MG, ALBUMIN, TBILI, ALKPHOS, ALT, AST, ANION in the last 24 hours. Cardiac Enzymes: No results for input(s): CK, MB, CKMB, TROPT in the last 24 hours. Liver Function, Amylase, Lipase: No results for input(s): TPROT, ALB, ALT, AST, ALKPHOS, TBILI, AMYLASE, LIPASE, LACTATE in the last 24 hours. MG/PHOS: No results for input(s): MG, P in the last 24 hours. Renal Panel: No results for input(s): ALBUMIN, CREAT, BUN, GLUC, CA, P, CHLOR, K, CO2, NA in the last 24 hours. Heme: No results for input(s): RETICP, ABSRETIC, LD, STEPHAN, FE, TIBC, TRANSFERSAT in the last 24 hours. No results found for: UALBCR Assessment/Plan #RLE wound infection with wet gangrene and necrosis POD #8?s/p amputation -Angio 08/26 showing partial occlusion [facility] [employer] [facility] -Vascular and Ortho consults -Plan is for?endarterectomy on Monday?09/01, then determination on AKA/BKA following that procedure ? #acute on chronic?anemia-improve d- in setting of recent surgery ? #Hypomagnesemia- repeat Mag?in AM. Replace PRN. ? #hx PAD-continue statin?and aspirin, management per vascular?surgery? ? #DM 2, uncontrolled-patient had been on insulin in past, unable to afford. continue SSIC, appreciate Endocrinology consult. ? #hypothyroidism-contin ue synthroid ? #hypophos-replace?PRN, ?and check phosphorus daily ? #HTN-continue home regimen, monitor BP closely ? #HLD-continue statin? ? #immobility-PT and OT, patient to be out of bed with meals Plan of care discussed with: Provider, RN, Patient SIGNATURE: Zack Jenkins DO PATIENT NAME: Elizabeth Modi DATE: September 01, 2019 TIME: 4:07 PM PAGER/CONTACT #: Team color pager Disclaimer: Portions of this note may have been generated using [employer] voice recognition software. Reasonable efforts were made to correct any dictation errors that resulted due to the programming of this software but some may still be present. Normal [facility] PROGRESS HNO ID: [id number] Author: Francine Roberts Service: Vascular Surgery Author Type: Resident Type: Progress Notes Filed: 09/01/2019 7:44 AM Note Text: Attestation signed by Jovanny Parmar at 09/01/2019 11:00 AM Attending Note I personally saw and examined the patient. I reviewed the resident's note. I agree with the resident's assessment and plan unless otherwise noted. Plan for OR tomorrow Signature: Jovanny Parmar MD Date: 09/01/2019 Time: 11:00 AM Vascular Surgery Progress Note SERVICE DATE: 09/01/2019 Vascular AND Thoracic Surgery Service Pager: For questions or concerns Mon-Fri 6a-5p please page [phone]. After 5pm and on Weekends and Holidays, please page [phone] if in ICU or [phone] if on RNF. Subjective SUBJECTIVE: NAEON. Denies pain. Understanding of plan for OR Monday. Reports he didn't get OOB yesterday. Objective OBJECTIVE: Vitals: Temp (24hrs), Av.7 ?C (98 ?F), Min:36.3 ?C (97.3 ?F), Max:36.9 ?C (98.4 ?F) BP (!) 114/43 Pulse 74 Temp 36.8 ?C (98.2 ?F) (Temporal) Resp 17 Ht 177.8 cm (5' 10") Wt 87.2 kg (192 lb 3.9 oz) SpO2 97% BMI 27.58 kg/m? O2 Therapy: Room Air IANDO: Date 08/31/19 0700 - 09/01/19 0659 09/01/19 0700 - 09/02/19 0659 Shift 2669-4076 3362-5520 5873-0628 24 Hour Total 8134-2476 6356-9718 1455-5680 24 Hour Total INTAKE Shift Total OUTPUT Urine 425 1500 1925 Void (ml) 425 1500 1925 # of BMs Number of BMs 1 x 1 x Shift Total 425 1500 1925 Weight (kg) 89.6 89.6 87.2 87.2 87.2 87.2 87.2 87.2 MEDICATIONS Current Facility-Administered Medications Medication Dose Route Frequency - metoprolol succinate ER 50 mg tab(s) (TOPROL XL) 50 mg ORAL DAILY - aspirin 81 mg chewable tab(s) 81 mg ORAL DAILY - insulin lispro 4 Units pen (rapid acting) (HumaLOG KWIKPEN) 4 Units SUBCUTANEOUS w MEALS - gabapentin 100 mg cap(s) (NEURONTIN) 100 mg ORAL q 8 H - insulin lispro pen (rapid acting) (HumaLOG KWIKPEN) SUBCUTANEOUS w MEALS - glimepiride 4 mg tab(s) (AMARYL) 4 mg ORAL DAILY WITH BREAKFAST - metFORMIN 1,000 mg tab(s) (GLUCOPHAGE) 1,000 mg ORAL BID w MEALS - insulin glargine 10 Units pen (long acting) (LANTUS SOLOSTAR, BASAGLAR KWIKPEN) 10 Units SUBCUTANEOUS AT BEDTIME - heparin 5,000 Units injection 5,000 Units SUBCUTANEOUS q 12 H - ondansetron 4 mg tab(s) (ZOFRAN) 4 mg ORAL q 6 H PRN Or - ondansetron (PF) 4 mg injection (ZOFRAN) 4 mg INTRAVENOUS q 6 H PRN - polyethylene glycol 3350 17 g packet (MIRALAX, GLYCOLAX) 17 g ORAL DAILY PRN - docusate sodium 100 mg cap(s) (COLACE) 100 mg ORAL BID PRN - magnesium hydroxide 400 mg/5 mL 30 mL (MOM) 30 mL ORAL DAILY PRN - bisacodyl 10 mg suppository (DULCOLAX) 10 mg RECTAL DAILY PRN - acetaminophen 650 mg tab(s) (TYLENOL) 650 mg ORAL q 6 H PRN - atorvastatin 40 mg tab(s) (LIPITOR) 40 mg ORAL DAILY - lisinopril 10 mg tab(s) (ZESTRIL, PRINIVIL) 10 mg ORAL DAILY - levothyroxine 25 mcg tab(s) (SYNTHROID) 25 mcg ORAL DAILY - dextrose 40 % 15 g 15 g ORAL PRN Or - glucagon 1 mg injection (GLUCAGEN) 1 mg INTRAMUSCULAR PRN Or - dextrose 50% in water 25 mL syringe 12.5 g INTRAVENOUS PRN Labs: Recent Labs 08/31/19 0420 08/30/19 0300 NA 136 138 K 3.9 4.0 CHLOR 106 106 CO2 23 24 BUN 21* 16 CREAT 0.76 0.80 GLUC 85 70 ANION 11 12 CA 8.2* 7.7* MG 1.1* -- P 3.3 -- WBC 8.81 9.52* HB 10.0* 9.0* HCT 31.2* 28.8* PLT 385* 388* Exam: GENERAL: No distress, Alert NEURO: AANDOx3. HEENT: normocephalic, atraumatic LUNGS: Equal chest rise bilaterally, Unlabored breathing O2 Therapy: Room Air CARDIAC: Regular rate and rhythm as above ABDOMEN: Soft, non-tender, non-distended, no masses or organomegaly EXTREMITIES: Right foot amputation. No edema. Dressing C/D/I without evidence of oozing. SKIN: Skin color, texture, turgor normal, No rashes or lesions ASSESSMENT AND PLAN: Active Hospital Problems Diagnosis Date Noted - Malnutrition of moderate degree ([facility]) 08/22/2019 - Gangrene of foot (HCC) 08/21/2019 - Diabetes (HCC) 08/21/2019 - HTN (hypertension) 08/21/2019 - Dyslipidemia 08/21/2019 - Hypothyroidism 08/21/2019 This is a 79 year old male with PMH of thyroid disease, HTN, dyslipidemia,claudicat ion, DM. 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 Antibiotics stopped 08/23, remains non-septic. ? Plan: -?DIET HEART HEALTHY DIET NPO ??? - Regular wound examinations, BID dressing changes, wound care following - PT/OT acute rehab - SQH ppx - Mobilization as able, out of bed to chair?as tolerated - Right femoral endarterectomy on Monday, then determination on AKA/BKA following that procedure - consent obtained, OK for DVT ppx morning of - still awaiting vein mapping - PAD-continue statin?and aspirin -?Further care per primary SIGNATURE: Francine Roberts MD PATIENT NAME: Elizabeth Modi DATE: September 01, 2019 TIME: 6:21 AM Vascular AND Thoracic Surgery Service Pager: For questions or concerns Mon-Mon 6a-5p please page [phone]. After 5pm and on Weekends and Holidays, please page [phone] if in ICU or [phone] if on RNF. Normal [facility] THERAPY NTon 09-01-2019 THERAPY NT HNO ID: [id number] Author: Sheridan (Pt) Antwan Service: Physical Therapy Author Type: Physical Therapist Type: Therapy (PT/OT/Speech/Resp) Filed: 09/01/2019 4:02 PM Note Text: Physical Therapy Treatment SERVICE DATE: 09/01/2019 SERVICE TIME: 1520 to 1538 ROOM: [place] [id number] Recommended Discharge Disposition: Acute Rehab Justification For Post Acute Needs: Anticipate patient will tolerate 3 hours of daily therapy at the time of admission to post-acute setting;Motivated PT Recommendations to Nursing: Sit at edge of bed;With assist of 1 person;Not appropriate for OOB activity at this time PT 6 Clicks Score: 12 Precautions/Activity Restrictions: Weight Bearing Restrictions Isolation Type: None Extremity With Weight Bearing Restricted: Right Lower Extremity Right Lower Extremity Weight Bearing Status: NWB ASSESSMENT : Steady progress, less assist needed with bed mobility and pt demo improving ability to unweight hips for scooting along EOB. All PT goals on-going. Patient Disposition at Start of Session: Supine in Bed;Call Singh in Reach Patient Disposition at End of Session: Supine in Bed;Call Singh in Reach Tolerated Full Session Without limitations Physical Therapy Problem List: Safety Deficits;Impaired Self Care;Decreased Activity Tolerance;Decreased Strength;Functional Mobility Impairment;Balance Impaired Patient /Caregiver Goals: Walk Goals for Plan of Care: Able to perform HEP with: Verbal Cues Only Transfer supine to/from sit with: Supervision Transfer sit to/from stand with: Minimal Assistance Ambulate with: Moderate Assistance Distance: 5' intervals Device: Wheeled Walker Progress Toward Goals: Progressing as expected Due To: generalized weakness Rehab Potential: Good PLAN: Treatment Frequency (times per week): 7(3-5) Current admission Treatment Interventions: Self Care / Home Management;Energy Conservation Training;Strengthening ;Functional Mobility Training;Balance Training Plan of Care developed with: Patient TREATMENT INTERVENTIONS: Therapy Diagnosis: Difficulty walking-musculoskeleta l;Muscle Weakness (generalized) Interventions Provided: Therapeutic Activity (06329) Therapeutic Activity (55477) Treatment Minutes: 18 1 unit Skilled Intervention(s): Functional mobility performed as described below. In EOB sitting for improved strength, ROM, conditioning, function: L ankle DF/PF, glute sets, LAQs, marching, abd/iso add, 2 x 10 reps each; instructed ex technique with short rest breaks needed. Pt education re: rehab process s/p amputation; practiced scooting along EOB for carryover to [id number] transfers, pt education / cues for increased push through L LE and bilat UEs to elevate hips and decrease shearing forces on backside. Discussed with pt: PT goals/POC, d/c planning - pt motivated for rehab stay to regain increased independence with mobility. Total Timed Code Treatment Minutes: 18 Total Treatment Time (minutes): 18 SUBJECTIVE: Current Hospital Course: Chart reviewed and no significant medical updates relevant to therapy were noted. Reason for Physical Therapy Consult : treatment Relevant Past Medical History: thyroid, HTN, DM, claudication Patient Report: no complaints and agreeable to PT. 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 Entry To Home: Stairs;With Rail Number Of Stairs Into Home: 4 Number Of Stairs To Bed/Bath: 0 Tub/Shower Type: walk in shower Laundry: main level Equipment Owned: Rollator;Wheelchair Prior Functional Level: Required Assistance;Within Functional Limits Assistance Required With: Cleaning Prior Functional Level Comments: pt independent without devices and completed ADLs OBJECTIVE: CURRENT FUNCTIONAL STATUS: Current Functional Mobility Assist Level Additional Information Rolling Stand By Assistance Multiple reps to L AND R Supine to Sit Minimal Assistance Sit to Supine Minimal Assistance Scooting Moderate Assistance Sit to Stand Stand to Sit Bed to Chair Toilet/Commode Gait Stairs Curb Step Car Transfer JH-HLM: 3: Sit at edge of bed Please see discipline specific clinical documentation flowsheet for complete details for this therapy evaluation/treatment. SIGNATURE: Sheridan Moncada, PT PATIENT NAME: Elizabeth Modi DATE: September 01, 2019 TIME: 3:55 PM Normal [facility] Basic Panelon 08-31-2019 Creatinine [Mass/Vol] 0.76 mg/dL Normal 0.67-1.17 [facility] Comment on above: Result Comment: Use of this assay is not recommended for patients undergoing treatment with phenindione, due to the potential for falsely depressed results. Performed By: #### C _ANA #### [place] [address] Anion gap [Moles/Vol] 11 mmol/L Normal 8-16 [facility] Comment on above: Performed By: #### C _ANA #### [address] [address] Calcium [Mass/Vol] 8.2 mg/dL Low 8.5-10.1 [facility] Comment on above: Performed By: #### C _ANA #### [address] [address] CO2 [Moles/Vol] 23 mmol/L Normal 21-32 [facility] Comment on above: Performed By: #### C _ANA #### [address] [address] Glucose [Mass/Vol] 85 mg/dL Normal 70-99 [facility] Comment on above: Performed By: #### C _ANA #### [address] [place] [address] Urea nitrogen [Mass/Vol] 21 mg/dL High 7-18 [facility] Comment on above: Performed By: #### C _ANA #### [facility] [address] [place], [place] [address] Chloride [Moles/Vol] 106 mmol/L Normal 98-107 [facility] Comment on above: Performed By: #### C _ANA #### [facility] [address] [place], [place] [address] Potassium [Moles/Vol] 3.9 mmol/L Normal 3.5-5.1 [facility] Comment on above: Performed By: #### C _ANA #### [facility] [address] [place], [place] [address] Sodium [Moles/Vol] 136 mmol/L Normal 136-145 [facility] Comment on above: Performed By: #### C _ANA #### [facility] [address] [place] [address] CONSULT PROGon 08-31-2019 CONSULT PROG HNO ID: [id number] Author: Doris Eden Service: Endocrinology Author Type: Physician Type: Consult Progress Note Filed: 08/31/2019 8:08 AM Note Text: ENDOCRINOLOGY CONSULT PROGRESS NOTE SERVICE DATE: 08/31/2019 SERVICE TIME: 7:50 AM Subjective INTERVAL HPI: Pt followed for diabetes mellitus type 2 with complications. 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 Had LE angiogram on 08/26. C/o dull pain, no SOB, no nausea. Eating well. PT following. DIET HEART HEALTHY DIET NPO has juices, sugar occ! On Boost also. Recent Labs 08/31/19 0420 08/30/19 2038 08/30/19 1638 08/30/19 1155 08/30/19 0300 08/29/19 0400 GLUC 85 -- -- -- -- 70 -- 83 GLUCOSEMETER -- 115* 85 103* < > -- < > -- < > = values in this interval not displayed. Current Facility-Administered Medications Medication Dose Route Frequency - heparin 5,000 Units injection 5,000 Units SUBCUTANEOUS q 12 H - ondansetron 4 mg tab(s) (ZOFRAN) 4 mg ORAL q 6 H PRN Or - ondansetron (PF) 4 mg injection (ZOFRAN) 4 mg INTRAVENOUS q 6 H PRN - polyethylene glycol 3350 17 g packet (MIRALAX, GLYCOLAX) 17 g ORAL DAILY PRN - docusate sodium 100 mg cap(s) (COLACE) 100 mg ORAL BID PRN - magnesium hydroxide 400 mg/5 mL 30 mL (MOM) 30 mL ORAL DAILY PRN - bisacodyl 10 mg suppository (DULCOLAX) 10 mg RECTAL DAILY PRN - acetaminophen 650 mg tab(s) (TYLENOL) 650 mg ORAL q 6 H PRN - atorvastatin 40 mg tab(s) (LIPITOR) 40 mg ORAL DAILY - lisinopril 10 mg tab(s) (ZESTRIL, PRINIVIL) 10 mg ORAL DAILY - levothyroxine 25 mcg tab(s) (SYNTHROID) 25 mcg ORAL DAILY - dextrose 40 % 15 g 15 g ORAL PRN Or - glucagon 1 mg injection (GLUCAGEN) 1 mg INTRAMUSCULAR PRN Or - dextrose 50% in water 25 mL syringe 12.5 g INTRAVENOUS PRN - gabapentin 100 mg cap(s) (NEURONTIN) 100 mg ORAL q 8 H - insulin lispro pen (rapid acting) (HumaLOG KWIKPEN) SUBCUTANEOUS w MEALS - glimepiride 4 mg tab(s) (AMARYL) 4 mg ORAL DAILY WITH BREAKFAST - metFORMIN 1,000 mg tab(s) (GLUCOPHAGE) 1,000 mg ORAL BID w MEALS - insulin glargine 10 Units pen (long acting) (LANTUS SOLOSTAR, BASAGLAR KWIKPEN) 10 Units SUBCUTANEOUS AT BEDTIME - insulin lispro 4 Units pen (rapid acting) (HumaLOG KWIKPEN) 4 Units SUBCUTANEOUS w MEALS - metoprolol succinate ER 50 mg tab(s) (TOPROL XL) 50 mg ORAL DAILY - aspirin 81 mg chewable tab(s) 81 mg ORAL DAILY - [START ON 09/02/2019] heparin 3,000 Units in NaCl 0.9% 500 mL irrigation 3,000 Units IRRIGATION ONCE - [START ON 09/02/2019] dextrose 5% in NaCl 0.9% iv infusion 100 mL/hr INTRAVENOUS CONTINUOUS Objective PHYSICAL EXAM: BP 148/55 Pulse 77 Temp (Src) 97.3 (Temporal) Resp 18 Ht 5' 10" (1.78m) Wt 197 lb 8.5 oz (89.6kg) SpO2 99% BMI 28.34 kg/(m2). O2 Therapy: Room Air HEENT moist mouth Lungs CTA anteriorly Heart S1 S2 Abdomen soft, flat, NT Extremities: dressing on R leg stump; dressing left ankle lat ? DATA: Diagnostic tests reviewed for today's visit: Most recent labs and imaging results. Assessment/Plan Diabetes mellitus type 2, 37 years duration; uncontrolled with complications; HbA1c 9.8. Took insulin in past a few years ago. Started on prog Lantus 10 units qhs on 08/22. Contd home Rx, Metformin 1 gm bid and Glimepiride 4 mg po daily am. Still had hyperglycemia; added prandial humalog 4 units qac tid on 3 pm. BS high on 08/24 night; pt did not eat well (30%) and Humalog was held! BS high at hs on 08/26, >300; no pattern, denies having snack? Eating well and on Boost also, has juices occ! BS better now. Watch on current Rx, Lantus/Humalog/oral agents. BS occ <100, overall stable. NO JUICES. 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; had B/L LE angiogram to determine definitive management (BKA vs AKA) PVD, for right common femoral endeartrectomy on 09/01 HTN (hypertension) POA: Yes Assessment AND Plan: on Rx Dyslipidemia POA: Yes Assessment AND Plan: on Rx Hypothyroidism POA: Yes Assessment AND Plan: on LT4 Malnutrition of moderate degree (HCC) POA: Yes Assessment AND Plan: on Boost supplements SIGNATURE: Doris Eden MD PATIENT NAME: Elizabeth Modi DATE: August 31, 2019 TIME: 8:08 AM PAGER: [phone] Normal [facility] Hemogramon 08-31-2019 Erythrocyte distribution width (RBC) [Ratio] 14.5 % High 11.6-14.4 [facility] Comment on above: Performed By: #### M AG #### [place] [address] Hematocrit (Bld) [Volume fraction] 31.2 % Low 40.1-51.0 [facility] Comment on above: Performed By: #### M AG #### [facility] [address] [place] [address] Hemoglobin (Bld) [Mass/Vol] 10.0 g/dL Low 13.7-17.5 [facility] Comment on above: Performed By: #### M AG #### [facility] [address] [place] [address] MCH (RBC) [Entitic mass] 28.7 pg Normal 25.7-32.2 [facility] Comment on above: Performed By: #### M AG #### [facility] [address] [place] [address] MCHC (RBC) [Mass/Vol] 32.1 % Low 32.3-36.5 [facility] Comment on above: Performed By: #### M AG #### [facility] [address] [place] [address] MCV (RBC) [Entitic vol] 89.4 fL Normal 83.2-95.6 [facility] Comment on above: Performed By: #### M AG #### [facility] [address] [place] [address] Platelet mean volume (Bld) [Entitic vol] 9.4 fL Normal 8.7-12.0 [facility] Comment on above: Performed By: #### M AG #### [facility] [address] [place] [address] Platelets (Bld) [#/Vol] 385 thou/cmm High 141-365 [facility] Comment on above: Performed By: #### M AG #### [facility] [address] [place] [address] RBC (Bld) [#/Vol] 3.49 mil/cmm Low 4.63-6.08 [facility] Comment on above: Performed By: #### M AG #### [facility] [address] [place] [address] RDW SD 45.1 fl Normal 36.1-45.8 [facility] Comment on above: Performed By: #### M AG #### [facility] [address] [place], [place] [address] WBC (Bld) [#/Vol] 8.81 thou/cmm Normal 4.23-9.07 [facility] Comment on above: Performed By: #### M AG #### [facility] [address] [place], [place] [address] Magnesium Bloodon 08-31-2019 Magnesium [Mass/Vol] 1.1 mg/dL Low 1.6-2.6 [facility] Comment on above: Performed By: #### M AG #### [facility] [address] [place], [place] [address] PROGRESSon 08-31-2019 PROGRESS HNO ID: [id number] Author: Zack Jenkins Service: Hospital Medicine Author Type: Physician Type: Progress Notes Filed: 08/31/2019 4:57 PM Note Text: DEPARTMENT OF HOSPITAL MEDICINE PROGRESS NOTE SERVICE DATE: 08/31/2019 SERVICE TIME: 4:53 PM Hospital Medicine/Primary Attending: Zack Jenkins, DO NIGHT AND WEEKEND COVERAGE: After 7pm please page [phone] CHIEF COMPLAINT: no new complaints SUBJECTIVE: Pt seen and examined. No acute events overnight. Denies CP, SOB, NVD, headache, fever/chills or abdominal pain. OBJECTIVE: PHYSICAL EXAM: BP 145/60 Pulse 80 Temp (Src) 98.2 (Oral) Resp 20 Ht 5' 10" (1.78m) Wt 197 lb 8.5 oz (89.6kg) SpO2 97% BMI 28.34 kg/(m2). O2 Therapy: Room Air General - AANDOx3, NAD CV - RRR S1 S2, No M/R/G RESP - CTAB, ?No wheezes, ronchi, rales ABD - soft, NT, ND +BS? EXT -?R foot amputation, mild TTP lower extremity, no clubbing/cyanosis extremities, moves all extremities NEURO - CN II-XII grossly intact, no focal?deficits MEDICATIONS: Current Facility-Administered Medications Medication Dose Route Frequency - heparin 5,000 Units injection 5,000 Units SUBCUTANEOUS q 12 H - ondansetron 4 mg tab(s) (ZOFRAN) 4 mg ORAL q 6 H PRN Or - ondansetron (PF) 4 mg injection (ZOFRAN) 4 mg INTRAVENOUS q 6 H PRN - polyethylene glycol 3350 17 g packet (MIRALAX, GLYCOLAX) 17 g ORAL DAILY PRN - docusate sodium 100 mg cap(s) (COLACE) 100 mg ORAL BID PRN - magnesium hydroxide 400 mg/5 mL 30 mL (MOM) 30 mL ORAL DAILY PRN - bisacodyl 10 mg suppository (DULCOLAX) 10 mg RECTAL DAILY PRN - acetaminophen 650 mg tab(s) (TYLENOL) 650 mg ORAL q 6 H PRN - atorvastatin 40 mg tab(s) (LIPITOR) 40 mg ORAL DAILY - lisinopril 10 mg tab(s) (ZESTRIL, PRINIVIL) 10 mg ORAL DAILY - levothyroxine 25 mcg tab(s) (SYNTHROID) 25 mcg ORAL DAILY - dextrose 40 % 15 g 15 g ORAL PRN Or - glucagon 1 mg injection (GLUCAGEN) 1 mg INTRAMUSCULAR PRN Or - dextrose 50% in water 25 mL syringe 12.5 g INTRAVENOUS PRN - gabapentin 100 mg cap(s) (NEURONTIN) 100 mg ORAL q 8 H - insulin lispro pen (rapid acting) (HumaLOG KWIKPEN) SUBCUTANEOUS w MEALS - glimepiride 4 mg tab(s) (AMARYL) 4 mg ORAL DAILY WITH BREAKFAST - metFORMIN 1,000 mg tab(s) (GLUCOPHAGE) 1,000 mg ORAL BID w MEALS - insulin glargine 10 Units pen (long acting) (LANTUS SOLOSTAR, BASAGLAR KWIKPEN) 10 Units SUBCUTANEOUS AT BEDTIME - insulin lispro 4 Units pen (rapid acting) (HumaLOG KWIKPEN) 4 Units SUBCUTANEOUS w MEALS - metoprolol succinate ER 50 mg tab(s) (TOPROL XL) 50 mg ORAL DAILY - aspirin 81 mg chewable tab(s) 81 mg ORAL DAILY - [START ON 09/02/2019] heparin 3,000 Units in NaCl 0.9% 500 mL irrigation 3,000 Units IRRIGATION ONCE - [START ON 09/02/2019] dextrose 5% in NaCl 0.9% iv infusion 100 mL/hr INTRAVENOUS CONTINUOUS DATA: Diagnostic tests reviewed for today's visit: CBC: Recent Labs 08/31/19 0420 WBC 8.81 RBC 3.49* HB 10.0* HCT 31.2* PLT 385* MCV 89.4 MCH 28.7 MPV 9.4 RDW 14.5* Coags: No results for input(s): INR, APTT in the last 24 hours. Invalid input(s): PT BMP: Recent Labs 08/31/19 0420 NA 136 K 3.9 CHLOR 106 CO2 23 BUN 21* CREAT 0.76 GLUC 85 CMP: Recent Labs 08/31/190 NA 136 K 3.9 CHLOR 106 CO2 23 BUN 21* CREAT 0.76 GLUC 85 CA 8.2* MG 1.1* ANION 11 Cardiac Enzymes: No results for input(s): CK, MB, CKMB, TROPT in the last 24 hours. Liver Function, Amylase, Lipase: No results for input(s): TPROT, ALB, ALT, AST, ALKPHOS, TBILI, AMYLASE, LIPASE, LACTATE in the last 24 hours. MG/PHOS: Recent Labs 08/31/19419 MG 1.1* P 3.3 Renal Panel: Recent Labs 08/31/190 CREAT 0.76 BUN 21* GLUC 85 CA 8.2* P 3.3 CHLOR 106 K 3.9 CO2 23 NA 136 Heme: No results for input(s): RETICP, ABSRETIC, LD, STEPHAN, FE, TIBC, TRANSFERSAT in the last 24 hours. No results found for: UALBCR Assessment/Plan #RLE wound infection with wet gangrene and necrosis POD #8?s/p amputation -Angio 08/26 showing partial occlusion [facility] [employer] -Vascular and Ortho consults -Plan is for?endarterectomy on Friday 09/01, then determination on AKA/BKA following that procedure ? #acute on chronic?anemia-improve d- in setting of recent surgery ? #Hypomagnesemia- replace with mag sulfate 2g IV, repeat Mag?in AM. Replace PRN. ? #hx PAD-continue statin?and aspirin, management per vascular?surgery? ? #DM 2, uncontrolled-patient had been on insulin in past, unable to afford. He then started pills and a1c has gone from 7 to 9 to 9.8, continue SSIC, appreciate Endocrinology consult. ? #hypothyroidism-contin ue synthroid ? #hypophos-replace?PRN, ?and check phos daily ? #HTN-continue home regimen, monitor BP closely ? #HLD-continue statin? ? #immobility-PT and OT, patient to be out of bed with meals ? VTE Prophylaxis:?Heparin 5000 units Sub Q BID?? ? Disposition:?Home with [facility]?pending progress and surgery? Plan of care discussed with: Provider, RN, Patient SIGNATURE: Zack Jenkins DO PATIENT NAME: Elizabeth Modi DATE: August 31, 2019 TIME: 4:53 PM PAGER/CONTACT #: Team color pager Disclaimer: Portions of this note may have been generated using [employer] voice recognition software. Reasonable efforts were made to correct any dictation errors that resulted due to the programming of this software but some may still be present. Normal [facility] PROGRESS HNO ID: [id number] Author: Francine Roberts Service: Vascular Surgery Author Type: Resident Type: Progress Notes Filed: 08/31/2019 8:52 AM Note Text: Attestation signed by Jovanny Parmar at 08/31/2019 10:49 AM Attending Note I personally saw and examined the patient. I reviewed the resident's note. I agree with the resident's assessment and plan unless otherwise noted. Signature: Jovanny Parmar MD Date: 08/31/2019 Time: 10:49 AM Vascular Surgery Progress Note SERVICE DATE: 08/31/2019 Vascular AND Thoracic Surgery Service Pager: For questions or concerns Mon-Fri 6a-5p please page [phone]. After 5pm and on Weekends and Holidays, please page [phone] if in ICU or [phone] if on RNF. Subjective SUBJECTIVE: NAEON. Denies pain. Understanding of plan for OR Monday. ? Objective OBJECTIVE: Vitals: Temp (24hrs), Av.6 ?C (97.9 ?F), Min:36.3 ?C (97.3 ?F), Max:36.9 ?C (98.4 ?F) BP 148/55 Pulse 77 Temp 36.3 ?C (97.3 ?F) (Temporal) Resp 18 Ht 177.8 cm (5' 10") Wt 89.6 kg (197 lb 8.5 oz) SpO2 99% BMI 28.34 kg/m? O2 Therapy: Room Air IANDO: Date 08/30/19 07 - 08/31/19 0659 08/31/19 07 - 09/01/19 0659 Shift 7846-3268 6756-1088 7016-9067 24 Hour Total 1663-0449 9442-6175 8666-3537 24 Hour Total INTAKE Shift Total OUTPUT Urine 500 251 749 7339 Void (ml) 500 825 617 0447 # of BMs Number of BMs 1 x 1 x Shift Total 500 735 030 0846 Weight (kg) 90.9 90.9 89.6 89.6 89.6 89.6 89.6 89.6 MEDICATIONS Current Facility-Administered Medications Medication Dose Route Frequency - metoprolol succinate ER 50 mg tab(s) (TOPROL XL) 50 mg ORAL DAILY - aspirin 81 mg chewable tab(s) 81 mg ORAL DAILY - insulin lispro 4 Units pen (rapid acting) (HumaLOG KWIKPEN) 4 Units SUBCUTANEOUS w MEALS - gabapentin 100 mg cap(s) (NEURONTIN) 100 mg ORAL q 8 H - insulin lispro pen (rapid acting) (HumaLOG KWIKPEN) SUBCUTANEOUS w MEALS - glimepiride 4 mg tab(s) (AMARYL) 4 mg ORAL DAILY WITH BREAKFAST - metFORMIN 1,000 mg tab(s) (GLUCOPHAGE) 1,000 mg ORAL BID w MEALS - insulin glargine 10 Units pen (long acting) (LANTUS SOLOSTAR, BASAGLAR KWIKPEN) 10 Units SUBCUTANEOUS AT BEDTIME - heparin 5,000 Units injection 5,000 Units SUBCUTANEOUS q 12 H - ondansetron 4 mg tab(s) (ZOFRAN) 4 mg ORAL q 6 H PRN Or - ondansetron (PF) 4 mg injection (ZOFRAN) 4 mg INTRAVENOUS q 6 H PRN - polyethylene glycol 3350 17 g packet (MIRALAX, GLYCOLAX) 17 g ORAL DAILY PRN - docusate sodium 100 mg cap(s) (COLACE) 100 mg ORAL BID PRN - magnesium hydroxide 400 mg/5 mL 30 mL (MOM) 30 mL ORAL DAILY PRN - bisacodyl 10 mg suppository (DULCOLAX) 10 mg RECTAL DAILY PRN - acetaminophen 650 mg tab(s) (TYLENOL) 650 mg ORAL q 6 H PRN - atorvastatin 40 mg tab(s) (LIPITOR) 40 mg ORAL DAILY - lisinopril 10 mg tab(s) (ZESTRIL, PRINIVIL) 10 mg ORAL DAILY - levothyroxine 25 mcg tab(s) (SYNTHROID) 25 mcg ORAL DAILY - dextrose 40 % 15 g 15 g ORAL PRN Or - glucagon 1 mg injection (GLUCAGEN) 1 mg INTRAMUSCULAR PRN Or - dextrose 50% in water 25 mL syringe 12.5 g INTRAVENOUS PRN Labs: Recent Labs 08/31/19 0420 08/30/19 0300 08/29/19 0400 NA 136 138 138 K 3.9 4.0 4.0 CHLOR 106 106 106 CO2 23 24 27 BUN 21* 16 14 CREAT 0.76 0.80 0.80 GLUC 85 70 83 ANION 11 12 9 CA 8.2* 7.7* 7.9* MG 1.1* -- 1.6 P 3.3 -- -- WBC 8.81 9.52* 10.45* HB 10.0* 9.0* 8.8* HCT 31.2* 28.8* 27.5* PLT 385* 388* 430* Exam: GENERAL: No distress, Alert NEURO: AANDOx3. HEENT: normocephalic, atraumatic LUNGS: Equal chest rise bilaterally, Unlabored breathing O2 Therapy: Room Air CARDIAC: Regular rate and rhythm as above ABDOMEN: Soft, non-tender, non-distended, no masses or organomegaly EXTREMITIES: Right foot amputation. No edema. Dressing C/D/I without evidence of oozing. Dressing changed. Stump C/D/I with slight darkening of posterior skin, no evidence of infection. SKIN: Skin color, texture, turgor normal, No rashes or lesions ASSESSMENT AND PLAN: Active Hospital Problems Diagnosis Date Noted - Malnutrition of moderate degree (HCC) 08/22/2019 - Gangrene of foot (HCC) 08/21/2019 - Diabetes (HCC) 08/21/2019 - HTN (hypertension) 08/21/2019 - Dyslipidemia 08/21/2019 - Hypothyroidism 08/21/2019 This is a 79 year old male with PMH of thyroid disease, HTN, dyslipidemia,claudicat ion, DM. 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 Antibiotics stopped 08/23, remains non-septic. ? Plan: -?DIET HEART HEALTHY DIET NPO ??? - Regular wound examinations, dressing changed by resident this AM, wound care following - PT/OT acute rehab - [facility] ppx - Mobilization as able, out of bed to chair?as tolerated - Angiogram on 08/27/2019 - showing partial occlusion [employer] - Right femoral endarterectomy on Monday, then determination on AKA/[facility] following that procedure - consent obtained, OK for DVT ppx morning of - still awaiting vein mapping - PAD-continue statin?and aspirin -?Further care per primary SIGNATURE: Francine Roberts MD PATIENT NAME: Elizabeth Modi DATE: August 31, 2019 TIME: 6:21 AM Vascular AND Thoracic Surgery Service Pager: For questions or concerns Mon-Mon 6a-5p please page [phone]. After 5pm and on Weekends and Holidays, please page [phone] if in ICU or [phone] if on RNF. Normal [facility] Phosphorus Bloodon 0 Phosphate [Mass/Vol] 3.3 mg/dL Normal 2.5-4.9 [facility] Comment on above: Performed By: #### C BC1 #### [facility] [address] [place] [address] Basic Panelon 08-30-2019 Creatinine [Mass/Vol] 0.80 mg/dL Normal 0.67-1.17 [facility] Comment on above: Result Comment: Use of this assay is not recommended for patients undergoing treatment with phenindione, due to the potential for falsely depressed results. Performed By: #### M AG #### [facility] [address] [place], [place] [address] Anion gap [Moles/Vol] 12 mmol/L Normal 8-16 [facility] Comment on above: Performed By: #### M AG #### [facility] [address] [place], [place] [address] Calcium [Mass/Vol] 7.7 mg/dL Low 8.5-10.1 [facility] Comment on above: Performed By: #### M AG #### [facility] [address] [place], [place] [address] CO2 [Moles/Vol] 24 mmol/L Normal 21-32 [facility] Comment on above: Performed By: #### M AG #### [facility] [address] [place], [place] [address] Glucose [Mass/Vol] 70 mg/dL Normal 70-99 [facility] Comment on above: Performed By: #### M AG #### [facility] [address] [place], [place] [address] Urea nitrogen [Mass/Vol] 16 mg/dL Normal 7-18 [facility] Comment on above: Performed By: #### M AG #### [facility] [address] [place], [place] [address] Chloride [Moles/Vol] 106 mmol/L Normal 98-107 [facility] Comment on above: Performed By: #### M AG #### [address] [address] Potassium [Moles/Vol] 4.0 mmol/L Normal 3.5-5.1 [facility] Comment on above: Performed By: #### M AG #### [facility] [address] [place], [place] [address] Sodium [Moles/Vol] 138 mmol/L Normal 136-145 [facility] Comment on above: Performed By: #### M AG #### [facility] [address] [place], [place] [address] CONSULT PROGon 08-30-2019 CONSULT PROG HNO ID: [id number] Author: Doris Eden Service: Endocrinology Author Type: Physician Type: Consult Progress Note Filed: 08/30/2019 8:57 AM Note Text: ENDOCRINOLOGY CONSULT PROGRESS NOTE SERVICE DATE: 08/30/2019 SERVICE TIME: 8:45 AM Subjective INTERVAL HPI: Pt followed for diabetes mellitus type 2 with complications. 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 Had LE angiogram on 08/26. No pian, no SOB, no nausea. Eating well. PT following. DIET HEART HEALTHY has juices, sugar occ! On Boost also. Recent Labs 08/30/19 0740 08/30/19 0300 08/29/19 2051 08/29/19 1655 08/29/19 0400 08/28/19 0322 GLUC -- 70 -- -- -- 83 -- 108* GLUCOSEMETER 101* -- 128* 83 < > -- < > -- < > = values in this interval not displayed. Current Facility-Administered Medications Medication Dose Route Frequency - heparin 5,000 Units injection 5,000 Units SUBCUTANEOUS q 12 H - ondansetron 4 mg tab(s) (ZOFRAN) 4 mg ORAL q 6 H PRN Or - ondansetron (PF) 4 mg injection (ZOFRAN) 4 mg INTRAVENOUS q 6 H PRN - polyethylene glycol 3350 17 g packet (MIRALAX, GLYCOLAX) 17 g ORAL DAILY PRN - docusate sodium 100 mg cap(s) (COLACE) 100 mg ORAL BID PRN - magnesium hydroxide 400 mg/5 mL 30 mL (MOM) 30 mL ORAL DAILY PRN - bisacodyl 10 mg suppository (DULCOLAX) 10 mg RECTAL DAILY PRN - acetaminophen 650 mg tab(s) (TYLENOL) 650 mg ORAL q 6 H PRN - atorvastatin 40 mg tab(s) (LIPITOR) 40 mg ORAL DAILY - lisinopril 10 mg tab(s) (ZESTRIL, PRINIVIL) 10 mg ORAL DAILY - levothyroxine 25 mcg tab(s) (SYNTHROID) 25 mcg ORAL DAILY - dextrose 40 % 15 g 15 g ORAL PRN Or - glucagon 1 mg injection (GLUCAGEN) 1 mg INTRAMUSCULAR PRN Or - dextrose 50% in water 25 mL syringe 12.5 g INTRAVENOUS PRN - gabapentin 100 mg cap(s) (NEURONTIN) 100 mg ORAL q 8 H - insulin lispro pen (rapid acting) (HumaLOG KWIKPEN) SUBCUTANEOUS w MEALS - glimepiride 4 mg tab(s) (AMARYL) 4 mg ORAL DAILY WITH BREAKFAST - metFORMIN 1,000 mg tab(s) (GLUCOPHAGE) 1,000 mg ORAL BID w MEALS - insulin glargine 10 Units pen (long acting) (LANTUS SOLOSTAR, BASAGLAR KWIKPEN) 10 Units SUBCUTANEOUS AT BEDTIME - insulin lispro 4 Units pen (rapid acting) (HumaLOG KWIKPEN) 4 Units SUBCUTANEOUS w MEALS - metoprolol succinate ER 50 mg tab(s) (TOPROL XL) 50 mg ORAL DAILY - aspirin 81 mg chewable tab(s) 81 mg ORAL DAILY - heparin 3,000 Units in NaCl 0.9% 500 mL irrigation 3,000 Units IRRIGATION ONCE Objective PHYSICAL EXAM: BP 138/52 Pulse 70 Temp (Src) 98.6 (Oral) Resp 18 Ht 5' 10" (1.78m) Wt 200 lb 6.4 oz (90.9kg) SpO2 95% BMI 28.75 kg/(m2). O2 Therapy: Room Air HEENT moist mouth Lungs CTA anteriorly Heart S1 S2 Abdomen soft, flat, NT Extremities: dressing on R leg stump; dressing left ankle lat ? DATA: Diagnostic tests reviewed for today's visit: Most recent labs and imaging results. Assessment/Plan Diabetes mellitus type 2, 37 years duration; uncontrolled with complications; HbA1c 9.8. Took insulin in past a few years ago. Started on prog Lantus 10 units qhs on 08/22. Contd home Rx, Metformin 1 gm bid and Glimepiride 4 mg po daily am. Still had hyperglycemia; added prandial humalog 4 units qac tid on 3 pm. BS high on 08/24 night; pt did not eat well (30%) and Humalog was held! BS high at hs on 08/26, >300; no pattern, denies having snack? Eating well and on Boost also, has juices! Watch on current Rx, Lantus/Humalog/oral agents. BS occ <100, overall stable. NO JUICES. 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; had B/L LE angiogram to determine definitive management (BKA vs AKA) PVD, for right common femoral endeartrectomy on 09/01 HTN (hypertension) POA: Yes Assessment AND Plan: on Rx Dyslipidemia POA: Yes Assessment AND Plan: on Rx Hypothyroidism POA: Yes Assessment AND Plan: on LT4 Malnutrition of moderate degree (HCC) POA: Yes Assessment AND Plan: on Boost supplements SIGNATURE: Doris Eden MD PATIENT NAME: Elizabeth Modi DATE: August 30, 2019 TIME: 8:57 AM PAGER: [phone] Normal [facility] Hemogramon 08-30-2019 Erythrocyte distribution width (RBC) [Ratio] 14.1 % Normal 11.6-14.4 [facility] Comment on above: Performed By: #### C BC1 #### [place] [address] Hematocrit (Bld) [Volume fraction] 28.8 % Low 40.1-51.0 [facility] Comment on above: Performed By: #### C BC1 #### [place] [address] Hemoglobin (Bld) [Mass/Vol] 9.0 g/dL Low 13.7-17.5 [facility] Comment on above: Performed By: #### C BC1 #### [place] [address] MCH (RBC) [Entitic mass] 28.3 pg Normal 25.7-32.2 [facility] Comment on above: Performed By: #### C BC1 #### [place] [address] MCHC (RBC) [Mass/Vol] 31.3 % Low 32.3-36.5 [facility] Comment on above: Performed By: #### C BC1 #### [place] [address] MCV (RBC) [Entitic vol] 90.6 fL Normal 83.2-95.6 [facility] Comment on above: Performed By: #### C BC1 #### [place] [address] Platelet mean volume (Bld) [Entitic vol] 9.7 fL Normal 8.7-12.0 [facility] Comment on above: Performed By: #### C BC1 #### [facility] [address] [place], [place] [address] Platelets (Bld) [#/Vol] 388 thou/cmm High 141-365 [facility] Comment on above: Performed By: #### C BC1 #### [facility] [address] [place] [address] RBC (Bld) [#/Vol] 3.18 mil/cmm Low 4.63-6.08 [facility] Comment on above: Performed By: #### C BC1 #### [facility] [address] [place] [address] RDW SD 44.2 fl Normal 36.1-45.8 [facility] Comment on above: Performed By: #### C BC1 #### [facility] [address] [place] [address] WBC (Bld) [#/Vol] 9.52 thou/cmm High 4.23-9.07 [facility] Comment on above: Performed By: #### C BC1 #### [place] [address] NUTRITIONon 08-30-2019 NUTRITION HNO ID: [id number] Author: Snow Serna Service: Nutrition Therapy Author Type: Registered Dietitian Type: Nutrition Filed: 08/30/2019 1:41 PM Note Text: NUTRITION THERAPY PROGRESS NOTE SERVICE DATE: 08/30/2019 SERVICE TIME: 11:33 AM Nutrition Assessment: Recommended Malnutrition Diagnosis: Moderate Protein-Calorie Malnutrition (08/22/19 1436 : Keturah (Dredge Operator Supervisor) Valery) Estimated kilocalorie needs: 9240-6795 Calorie Calculation Method: 30-35 kcals/kg Estimated protein needs (grams): 98-128 Grams protein determined by: 1.3-1.7 g/kg Care Plan: Continue current diet Supplements: Boost Glucose Control Monitor and Evaluation: Meet greater than 75% of estimated needs;Monitor labs, I/Os, vital signs, weight;Monitor bowel function;Monitor fluid/electrolyte balance Discharge Recommendations: Oral Supplements;Diet Diet: CARB control, low sodium Oral Supplements: Boost GC BID Interval History: S/p R foot amputation. Plan for enterectomy Monday and further plans after. Appetite fair, and taking boost. Anthropometrics: Height: 177.8 cm (5' 10") Weight: 90.9 kg (200 lb 6.4 oz) Dosing Weight: 75.5 kg (166 lb 7.2 oz) Body mass index is 28.75 kg/m?. Overweight Intake History: Current Intake: Greater than 75% estimated energy needs over: the past 3 days. Patient reports improving appetite and eating well. Likes the Boost GC very much and requests to continue. Likes chocolate. Current Diet: DIET HEART HEALTHY SIGNATURE: Snow Serna RD, LD PATIENT NAME: Elizabeth Modi DATE: August 30, 2019 TIME: 11:33 AM PAGER: [phone] Normal [facility] PROGRESSon 08-30-2019 PROGRESS HNO ID: [id number] Author: Zack Jenkins Service: Hospital Medicine Author Type: Physician Type: Progress Notes Filed: 08/30/2019 5:31 PM Note Text: DEPARTMENT OF HOSPITAL MEDICINE PROGRESS NOTE SERVICE DATE: 08/30/2019 SERVICE TIME: 5:24 PM Hospital Medicine/Primary Attending: Zack Jenkins, DO NIGHT AND WEEKEND COVERAGE: After 7pm please page [phone] CHIEF COMPLAINT: R lower leg pain SUBJECTIVE: Pt seen and examined. States his R lower leg hurts more today. Denies CP, SOB, NVD, headache, fever/chills or abdominal pain. OBJECTIVE: PHYSICAL EXAM: BP 135/51 Pulse 67 Temp (Src) 97.9 (Oral) Resp 18 Ht 5' 10" (1.78m) Wt 200 lb 6.4 oz (90.9kg) SpO2 95% BMI 28.75 kg/(m2). O2 Therapy: Room Air General - AANDOx3, NAD, in bed CV - RRR S1 S2, No M/R/G RESP - CTAB, ?No wheezes, ronchi, rales ABD - soft, NT, ND +BS all quads EXT -?R foot amputation, mild TTP lower extremity, no clubbing/cyanosis extremities, moves all extremities NEURO - CN II-XII grossly intact, no focal neurologic deficits MEDICATIONS: Current Facility-Administered Medications Medication Dose Route Frequency - heparin 5,000 Units injection 5,000 Units SUBCUTANEOUS q 12 H - ondansetron 4 mg tab(s) (ZOFRAN) 4 mg ORAL q 6 H PRN Or - ondansetron (PF) 4 mg injection (ZOFRAN) 4 mg INTRAVENOUS q 6 H PRN - polyethylene glycol 3350 17 g packet (MIRALAX, GLYCOLAX) 17 g ORAL DAILY PRN - docusate sodium 100 mg cap(s) (COLACE) 100 mg ORAL BID PRN - magnesium hydroxide 400 mg/5 mL 30 mL (MOM) 30 mL ORAL DAILY PRN - bisacodyl 10 mg suppository (DULCOLAX) 10 mg RECTAL DAILY PRN - acetaminophen 650 mg tab(s) (TYLENOL) 650 mg ORAL q 6 H PRN - atorvastatin 40 mg tab(s) (LIPITOR) 40 mg ORAL DAILY - lisinopril 10 mg tab(s) (ZESTRIL, PRINIVIL) 10 mg ORAL DAILY - levothyroxine 25 mcg tab(s) (SYNTHROID) 25 mcg ORAL DAILY - dextrose 40 % 15 g 15 g ORAL PRN Or - glucagon 1 mg injection (GLUCAGEN) 1 mg INTRAMUSCULAR PRN Or - dextrose 50% in water 25 mL syringe 12.5 g INTRAVENOUS PRN - gabapentin 100 mg cap(s) (NEURONTIN) 100 mg ORAL q 8 H - insulin lispro pen (rapid acting) (HumaLOG KWIKPEN) SUBCUTANEOUS w MEALS - glimepiride 4 mg tab(s) (AMARYL) 4 mg ORAL DAILY WITH BREAKFAST - metFORMIN 1,000 mg tab(s) (GLUCOPHAGE) 1,000 mg ORAL BID w MEALS - insulin glargine 10 Units pen (long acting) (LANTUS SOLOSTAR, BASAGLAR KWIKPEN) 10 Units SUBCUTANEOUS AT BEDTIME - insulin lispro 4 Units pen (rapid acting) (HumaLOG KWIKPEN) 4 Units SUBCUTANEOUS w MEALS - metoprolol succinate ER 50 mg tab(s) (TOPROL XL) 50 mg ORAL DAILY - aspirin 81 mg chewable tab(s) 81 mg ORAL DAILY - heparin 3,000 Units in NaCl 0.9% 500 mL irrigation 3,000 Units IRRIGATION ONCE - [START ON 09/02/2019] heparin 3,000 Units in NaCl 0.9% 500 mL irrigation 3,000 Units IRRIGATION ONCE DATA: Diagnostic tests reviewed for today's visit: CBC: Recent Labs 08/30/19 0300 WBC 9.52* RBC 3.18* HB 9.0* HCT 28.8* PLT 388* MCV 90.6 MCH 28.3 MPV 9.7 RDW 14.1 Coags: No results for input(s): INR, APTT in the last 24 hours. Invalid input(s): PT BMP: Recent Labs 08/30/19 0300 NA 138 K 4.0 CHLOR 106 CO2 24 BUN 16 CREAT 0.80 GLUC 70 CMP: Recent Labs 08/30/19 0300 NA 138 K 4.0 CHLOR 106 CO2 24 BUN 16 CREAT 0.80 GLUC 70 CA 7.7* ANION 12 Cardiac Enzymes: No results for input(s): CK, MB, CKMB, TROPT in the last 24 hours. Liver Function, Amylase, Lipase: No results for input(s): TPROT, ALB, ALT, AST, ALKPHOS, TBILI, AMYLASE, LIPASE, LACTATE in the last 24 hours. MG/PHOS: No results for input(s): MG, P in the last 24 hours. Renal Panel: Recent Labs 08/30/19 0300 CREAT 0.80 BUN 16 GLUC 70 CA 7.7* CHLOR 106 K 4.0 CO2 24 NA 138 Heme: No results for input(s): RETICP, ABSRETIC, LD, STEPHAN, FE, TIBC, TRANSFERSAT in the last 24 hours. No results found for: UALBCR Assessment/Plan #RLE wound infection with wet gangrene and necrosis POD #7?s/p amputation -Angio 08/26 showing partial occlusion [employer] -Vascular and Ortho consults -Plan is for endarterectomy on Friday 09/01, then determination on AKA/BKA following that procedure ? #acute on chronic?anemia-improve d- in setting of recent surgery ? #Hypomagnesemia- replace PRN, repeat Mag in AM. Replace PRN. ? #hx PAD-continue statin?and aspirin, management per vascular?surgery? ? #DM 2, uncontrolled-patient had been on insulin in past, unable to afford. He then started pills and a1c has gone from 7 to 9 to 9.8, continue SSIC, appreciate Endocrinology consult. ? #hypothyroidism-contin ue synthroid ? #hypophos-replace?PRN, ?and check daily ? #HTN-continue home regimen, monitor BP closely ? #HLD-statin? ? #immobility-PT and OT, patient to be out of bed with meals ? VTE Prophylaxis:?Heparin 5000 units Sub Q BID?? ? Disposition:?Home with [facility]?pending progress and surgery? Plan of care discussed with: Provider, RN, Patient SIGNATURE: Zack Jenkins DO PATIENT NAME: Elizabeth Modi DATE: August 30, 2019 TIME: 5:24 PM PAGER/CONTACT #: Team color pager Disclaimer: Portions of this note may have been generated using [employer] voice recognition software. Reasonable efforts were made to correct any dictation errors that resulted due to the programming of this software but some may still be present. Normal [facility] PROGRESS HNO ID: [id number] Author: Francine Roberts Service: General Surgery Author Type: Resident Type: Progress Notes Filed: 08/30/2019 6:52 AM Note Text: Attestation signed by Gordo Figueroa at 09/02/2019 3:52 PM Attending Note I discussed with resident. The patient was not examined by the attending. I reviewed the resident's note. I agree with the resident's assessment and plan unless otherwise noted. Signature: Gordo Figueroa MD Date: 09/02/2019. Time: 3:52 PM MEDICAL STUDENT Vascular/Thoracic Surgery Progress Note This note was generated by a MEDICAL STUDENT working under the supervision of a Physician. As applicable, the findings, conclusions, and assessment of risk have been confirmed by a qualified provider. The note is NOT considered authenticated until addended and co-signed by the Physician at the beginning of this note. SERVICE DATE: 08/30/2019 Vascular AND Thoracic Surgery Service Pager: For questions or concerns Mon-Fri 6a-5p please page [phone]. After 5pm and on Weekends and Holidays, please page [phone] if in ICU or [phone] if on RNF. Subjective SUBJECTIVE: Mr. Modi says he is feeling well this morning, did not have any acute events overnight, no new symptoms. He denies fevers, chills, N/V/CP/SOB, or any other complaints this AM. Tolerating Diet: DIET HEART HEALTHY He slept through the night. He uses a urinal to urinate and had a bowel movement, passes flatus. His pain is well controlled (rates it as 1 out of 10). He did not ambulate. ? Objective OBJECTIVE: Vitals: Temp (24hrs), Av.8 ?C (98.2 ?F), Min:36.6 ?C (97.9 ?F), Max:37 ?C (98.6 ?F) BP 138/52 Pulse 70 Temp 37 ?C (98.6 ?F) (Oral) Resp 18 Ht 177.8 cm (5' 10") Wt 90.9 kg (200 lb 6.4 oz) SpO2 95% BMI 28.75 kg/m? O2 Therapy: Room Air IANDO: Date 08/29/19699 - 08/30/19 0659 08/30/19 07 - 08/31/19 0659 Shift 7449-0834 6390-2328 2227-8074 24 Hour Total 2532-6125 5490-3556 7236-7263 24 Hour Total INTAKE IV 1100 1100 Volume (mL) (NaCl 0.9% iv infusion) 1100 1100 Shift Total 1100 1100 OUTPUT Urine 250 700 950 Void (ml) 250 700 950 Shift Total 250 700 950 Weight (kg) 89.8 89.8 90.9 90.9 90.9 90.9 90.9 90.9 MEDICATIONS Current Facility-Administered Medications Medication Dose Route Frequency - metoprolol succinate ER 50 mg tab(s) (TOPROL XL) 50 mg ORAL DAILY - aspirin 81 mg chewable tab(s) 81 mg ORAL DAILY - insulin lispro 4 Units pen (rapid acting) (HumaLOG KWIKPEN) 4 Units SUBCUTANEOUS w MEALS - gabapentin 100 mg cap(s) (NEURONTIN) 100 mg ORAL q 8 H - insulin lispro pen (rapid acting) (HumaLOG KWIKPEN) SUBCUTANEOUS w MEALS - glimepiride 4 mg tab(s) (AMARYL) 4 mg ORAL DAILY WITH BREAKFAST - metFORMIN 1,000 mg tab(s) (GLUCOPHAGE) 1,000 mg ORAL BID w MEALS - insulin glargine 10 Units pen (long acting) (LANTUS SOLOSTAR, BASAGLAR KWIKPEN) 10 Units SUBCUTANEOUS AT BEDTIME - heparin 5,000 Units injection 5,000 Units SUBCUTANEOUS q 12 H - ondansetron 4 mg tab(s) (ZOFRAN) 4 mg ORAL q 6 H PRN Or - ondansetron (PF) 4 mg injection (ZOFRAN) 4 mg INTRAVENOUS q 6 H PRN - polyethylene glycol 3350 17 g packet (MIRALAX, GLYCOLAX) 17 g ORAL DAILY PRN - docusate sodium 100 mg cap(s) (COLACE) 100 mg ORAL BID PRN - magnesium hydroxide 400 mg/5 mL 30 mL (MOM) 30 mL ORAL DAILY PRN - bisacodyl 10 mg suppository (DULCOLAX) 10 mg RECTAL DAILY PRN - acetaminophen 650 mg tab(s) (TYLENOL) 650 mg ORAL q 6 H PRN - atorvastatin 40 mg tab(s) (LIPITOR) 40 mg ORAL DAILY - lisinopril 10 mg tab(s) (ZESTRIL, PRINIVIL) 10 mg ORAL DAILY - levothyroxine 25 mcg tab(s) (SYNTHROID) 25 mcg ORAL DAILY - dextrose 40 % 15 g 15 g ORAL PRN Or - glucagon 1 mg injection (GLUCAGEN) 1 mg INTRAMUSCULAR PRN Or - dextrose 50% in water 25 mL syringe 12.5 g INTRAVENOUS PRN Labs: Recent Labs 08/30/19 0300 08/29/19 0400 08/28/19 0322 NA 138 138 138 K 4.0 4.0 4.1 CHLOR 106 106 105 CO2 24 27 27 BUN 16 14 14 CREAT 0.80 0.80 0.91 GLUC 70 83 108* ANION 12 9 10 CA 7.7* 7.9* 7.5* MG -- 1.6 1.1* P -- -- 3.3 WBC 9.52* 10.45* 10.42* HB 9.0* 8.8* 9.5* HCT 28.8* 27.5* 29.8* PLT 388* 430* 390* Exam: GENERAL: No distress, Alert NEURO: AANDOx3. HEENT: normocephalic, atraumatic LUNGS: Equal chest rise bilaterally, Unlabored breathing O2 Therapy: Room Air CARDIAC: Regular rate and rhythm as above ABDOMEN: Soft, non-tender, non-distended, no masses or organomegaly EXTREMITIES: Right foot amputation. No edema. Dressing C/D/I without evidence of oozing. SKIN: Skin color, texture, turgor normal, No rashes or lesions ASSESSMENT AND PLAN: Active Hospital Problems Diagnosis Date Noted - Malnutrition of moderate degree (HCC) 08/22/2019 - Gangrene of foot (HCC) 08/21/2019 - Diabetes (HCC) 08/21/2019 - HTN (hypertension) 08/21/2019 - Dyslipidemia 08/21/2019 - Hypothyroidism 08/21/2019 This is a 79 year old male with PMH of thyroid disease, HTN, dyslipidemia,claudicat ion, DM. 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 Antibiotics stopped 08/23, remains non-septic. ? Plan: ? -?DIET HEART HEALTHY ? - leukocytosis: WBC: 9.52 from 10.42?from 10.21, off abx ??? - Regular wound examinations, wound care following - PT/OT acute rehab - [facility] ppx - Mobilization as able, out of bed to chair?as tolerated - Angiogram on 08/27/2019 - showing partial occlusion R [employer] - Endarterectomy on Monday, then determination on AKA/BKA following that procedure - PAD-continue statin?and aspirin -?Further care per primary SIGNATURE: Ema Mcdowell Ms PATIENT NAME: Elizabeth Modi DATE: August 30, 2019 TIME: 5:55 AM Resident Supervision of Medical Student I personally saw and examined the patient. I reviewed the medical student's note. I agree with the medical student's assessment with changes made accordingly. Signature: Francine Roberts MD Date: 08/30/2019 Time: 6:34 AM Vascular AND Thoracic Surgery Service Pager: For questions or concerns Mon-Fri 6a-5p please page [phone]. After 5pm and on Weekends and Holidays, please page [phone] if in ICU or [phone] if on RNF. Normal [facility] THERAPY NTon 08-30-2019 THERAPY NT HNO ID: [id number] Author: Tanja (Pt) Hoda Service: Physical Therapy Author Type: Physical Therapist Type: Therapy (PT/OT/Speech/Resp) Filed: 08/30/2019 5:00 PM Note Text: Physical Therapy Treatment SERVICE DATE: 08/30/2019 SERVICE TIME: 1415 to 1500 ROOM: [id number] Recommended Discharge Disposition: Acute Rehab Recommended Discharge Disposition Comments: Pt is functioning far below his baseline level. He would benefit from intense rehabilitation program to mximize functional gains and aide in return to prior level of independence. Justification For Post Acute Needs: Willing to participate;Motivated; Living the community premorbidly;Good sitting tolerance;Good family support;Anticipate patient will tolerate 3 hours of daily therapy at the time of admission to post-acute setting;Anticipated community discharge PT Recommendations to Nursing: Not appropriate for OOB activity at this time PT 6 Clicks Score: 13 Precautions/Activity Restrictions: Weight Bearing Restrictions Isolation Type: None Extremity With Weight Bearing Restricted: Right Lower Extremity Right Lower Extremity Weight Bearing Status: NWB ASSESSMENT : Patient progressing slowly towards goals. Attempted to stand, unable to achieve full standing, barely clears buttocks from bed with max assist x1. Unable to use bilateral upper extremity and left lower extremity for much assistance, complains of left knee pain. Completed bed level therapeutic exercise, left lower extremity grossly 3/5 strength. Patient would benefit from additional physical therapy to address deficits, improve strength/balance/mobil ity. Recommend acute rehab at discharge. Patient Disposition at Start of Session: Supine in Bed;Call Singh in Reach Patient Disposition at End of Session: Supine in Bed;Call Singh in Reach Tolerated Full Session Without limitations Physical Therapy Problem List: Safety Deficits;Impaired Self Care;Decreased Activity Tolerance;Decreased Strength;Functional Mobility Impairment;Balance Impaired Patient /Caregiver Goals: Walk Goals for Plan of Care: Able to perform HEP with: Verbal Cues Only Transfer supine to/from sit with: Supervision Transfer sit to/from stand with: Minimal Assistance Ambulate with: Moderate Assistance Distance: 5' intervals Device: Wheeled Walker Progress Toward Goals: Progressing slower than expected Due To: generalized weakness Rehab Potential: Good PLAN: Treatment Frequency (times per week): 7(3-5) Current admission Treatment Interventions: Self Care / Home Management;Energy Conservation Training;Strengthening ;Functional Mobility Training;Balance Training Plan of Care developed with: Patient TREATMENT INTERVENTIONS: Therapy Diagnosis: Difficulty walking-musculoskeleta l;Muscle Weakness (generalized) Interventions Provided: Therapeutic Exercise (56806);Therapeutic Activity (23786) Therapeutic Exercise (60570) Treatment Minutes: 25 2 units Skilled Intervention(s): Patient completed general strengthening exercises in supine, sitting (ankle pump, quad set, gluteal set, heel slide, hip abd/add, straight leg raise, long arc quad, short arc quad, hip adductor squeeze, assisted bridging) x 15-20 reps bilateral lower extremity, with min assist, with min verbal/tactile cues for optimal muscle recruitment, muscle activation, and muscle strengthening. Therapeutic Activity (55448) Treatment Minutes: 15 1 unit Skilled Intervention(s): Instructed patient in log roll technique - cues to reach for bed rails to assist with rolling Bed mobility: Instruction to sit at side of bed. head of bed slightly elevated and cues to move bilateral lower extremity to edge of bed. Cues to reach across for rail to assist. Patient does utilize rail to pull self to edge of bed. Requires contact guard assist. Instruction to scoot at edge of bed until left lower extremity touches floor to improve proprioception/decreas e dizziness. Requires min assist. Transfer Training: Patient completed Sit to/from stand transfer 2 times throughout session at max assist for initial forward weight-shifting, assist to lift. Unable to achieve full standing. Verbal Cues provided for sequencing, initiation, for safe use of UE to assist with transfer. Attempted with bilateral upper extremity on bilateral bed rails. Total Timed Code Treatment Minutes: 40 Total Treatment Time (minutes): 40 SUBJECTIVE: Current Hospital Course: Chart reviewed; endartectomy moved from today to Friday 09/01 Reason for Physical Therapy Consult : treatment Relevant Past Medical History: thyroid, HTN, DM, claudication Patient Report: "They moved my surgery." agreeable to physical therapy. Complains of 5/10 right lower extremity . No family present. 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 Entry To Home: Stairs;With Rail Number Of Stairs Into Home: 4 Number Of Stairs To Bed/Bath: 0 Tub/Shower Type: walk in shower Laundry: main level Equipment Owned: Rollator;Wheelchair Prior Functional Level: Required Assistance;Within Functional Limits Assistance Required With: Cleaning Prior Functional Level Comments: pt independent without devices and completed ADLs OBJECTIVE: CURRENT FUNCTIONAL STATUS: Current Functional Mobility Assist Level Additional Information Rolling Stand By Assistance Supine to Sit Contact Guard Assistance Sit to Supine Contact Guard Assistance Scooting Minimal Assistance Sit to Stand Maximal Assistance(unable to achieve full stand) Stand to Sit Maximal Assistance Bed to Chair Toilet/Commode Gait (pt unable) Stairs Curb Step Car Transfer Balance: Static Sitting;Dynamic Sitting;Static Standing Static Sitting Balance: Good Patient able to maintain balance without handhold support, limited postural sway Dynamic Sitting Balance: Fair Patient accepts minimal challenge, able to maintain balance while turning head/trunk Static Standing Balance: Poor Patient requires handhold support and moderate to maximal assistance to maintain position Activity Tolerance: Sitting Activity Sitting Activity: at EOB Sitting Activity Tolerance (in minutes): 5 JH-HLM: 3: Sit at edge of bed Please see discipline specific clinical documentation flowsheet for complete details for this therapy evaluation/treatment. SIGNATURE: Tanja Drummond PT PATIENT NAME: Elizabeth Modi DATE: August 30, 2019 TIME: 4:56 PM Normal [facility] Basic Panelon 08-29-2019 Creatinine [Mass/Vol] 0.80 mg/dL Normal 0.67-1.17 [facility] Comment on above: Result Comment: Use of this assay is not recommended for patients undergoing treatment with phenindione, due to the potential for falsely depressed results. Performed By: #### C _ANA #### [address] [address] Anion gap [Moles/Vol] 9 mmol/L Normal 8-16 [facility] Comment on above: Performed By: #### C _ANA #### [place] [address] CO2 [Moles/Vol] 27 mmol/L Normal 21-32 [facility] Comment on above: Performed By: #### C _ANA #### [address], [place] [address] Glucose [Mass/Vol] 83 mg/dL Normal 70-99 [facility] Comment on above: Performed By: #### C _ANA #### [facility] [address] [place], [place] [address] Urea nitrogen [Mass/Vol] 14 mg/dL Normal 7-18 [facility] Comment on above: Performed By: #### C _ANA #### [facility] [address] [place], [place] [address] Calcium [Mass/Vol] 7.9 mg/dL Low 8.5-10.1 [facility] Comment on above: Performed By: #### C _ANA #### [facility] [address] [place] [address] Chloride [Moles/Vol] 106 mmol/L Normal 98-107 [facility] Comment on above: Performed By: #### C _ANA #### [facility] [address] [place] [address] Potassium [Moles/Vol] 4.0 mmol/L Normal 3.5-5.1 [facility] Comment on above: Performed By: #### C _ANA #### [facility] [address] [place], [place] [address] Sodium [Moles/Vol] 138 mmol/L Normal 136-145 [facility] Comment on above: Performed By: #### C _ANA #### [address] [address] CASE MANAGEMon 08-29-2019 CASE MANAGEM HNO ID: [id number] Author: Tami Patricio RN Service: Care Management Author Type: Registered Nurse Type: Care Mgt Progress Note Filed: 08/29/2019 11:27 AM Note Text: CARE MANAGEMENT PROGRESS NOTE SERVICE DATE: 08/29/2019 SERVICE TIME: 11:27 AM LOS: 8 days Chart reviewed. 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 Referral to [facility]- pt will need precert. Will follow clinical progress. SIGNATURE: Tami Patricio RN PATIENT NAME: Elizabeth Modi DATE: August 29, 2019 TIME: 11:27 AM PAGER/CONTACT #: [phone] [facility] CONSULT PROGon 08-29-2019 CONSULT PROG HNO ID: [id number] Author: Luke Briones (Gurwinder) Sailaja Service: Wound/Ostomy Author Type: Nurse Practitioner Type: Consult Progress Note Filed: 08/29/2019 3:36 PM Note Text: WOUND CARE CONSULT CARDIOGRAPHER NOTE SERVICE DATE: 08/29/2019 SERVICE TIME: 14:45 TIME SPENT (minutes): 30 REASON FOR CONSULT: Reevaluation of right leg wounds and overall skin check. CHIEF COMPLAINT: Recent surgery to right leg with more coming on Monday Subjective HISTORY OF PRESENT ILLNESS: Mr. Modi is a 79 year old male who is seen today with Leila Goel, Wound/continuous improvement manager, and presented to hospital with complaints of Right foot gangrene. Patient underwent Guillotine BKA of right foot on 08/23/[address] Figueroa. Patient is going back to OR on Monday09/02/19 for right femoral endartectomy. PERTINENT REVIEW OF SYSTEMS: GENERAL: Denies fever or chills PAIN ASSESSMENT: admits to pain in right lower leg SKIN: Admits to recent surgical wound to right lower leg RESPIRATORY: Denies shortness of breath or cough GI/: denies nausea or vomiting PAST MEDICAL HISTORY Diagnosis Date - DM (diabetes mellitus) (HCC) - Dyslipidemia - HTN (hypertension) - Hypothyroidism History reviewed. No pertinent surgical history. Social History Tobacco Use - Smoking status: Not on file Substance Use Topics - Alcohol use: Not on file - Drug use: Not on file No family history on file. MEDICATIONS: Current Facility-Administered Medications Medication Dose Route Frequency - heparin 5,000 Units injection 5,000 Units SUBCUTANEOUS q 12 H - ondansetron 4 mg tab(s) (ZOFRAN) 4 mg ORAL q 6 H PRN Or - ondansetron (PF) 4 mg injection (ZOFRAN) 4 mg INTRAVENOUS q 6 H PRN - polyethylene glycol 3350 17 g packet (MIRALAX, GLYCOLAX) 17 g ORAL DAILY PRN - docusate sodium 100 mg cap(s) (COLACE) 100 mg ORAL BID PRN - magnesium hydroxide 400 mg/5 mL 30 mL (MOM) 30 mL ORAL DAILY PRN - bisacodyl 10 mg suppository (DULCOLAX) 10 mg RECTAL DAILY PRN - acetaminophen 650 mg tab(s) (TYLENOL) 650 mg ORAL q 6 H PRN - atorvastatin 40 mg tab(s) (LIPITOR) 40 mg ORAL DAILY - lisinopril 10 mg tab(s) (ZESTRIL, PRINIVIL) 10 mg ORAL DAILY - levothyroxine 25 mcg tab(s) (SYNTHROID) 25 mcg ORAL DAILY - dextrose 40 % 15 g 15 g ORAL PRN Or - glucagon 1 mg injection (GLUCAGEN) 1 mg INTRAMUSCULAR PRN Or - dextrose 50% in water 25 mL syringe 12.5 g INTRAVENOUS PRN - gabapentin 100 mg cap(s) (NEURONTIN) 100 mg ORAL q 8 H - insulin lispro pen (rapid acting) (HumaLOG KWIKPEN) SUBCUTANEOUS w MEALS - glimepiride 4 mg tab(s) (AMARYL) 4 mg ORAL DAILY WITH BREAKFAST - metFORMIN 1,000 mg tab(s) (GLUCOPHAGE) 1,000 mg ORAL BID w MEALS - insulin glargine 10 Units pen (long acting) (LANTUS SOLOSTAR, BASAGLAR KWIKPEN) 10 Units SUBCUTANEOUS AT BEDTIME - insulin lispro 4 Units pen (rapid acting) (HumaLOG KWIKPEN) 4 Units SUBCUTANEOUS w MEALS - NaCl 0.9% iv infusion 100 mL/hr INTRAVENOUS CONTINUOUS - metoprolol succinate ER 50 mg tab(s) (TOPROL XL) 50 mg ORAL DAILY - aspirin 81 mg chewable tab(s) 81 mg ORAL DAILY - [START ON 08/30/2019] heparin 3,000 Units in NaCl 0.9% 500 mL irrigation 3,000 Units IRRIGATION ONCE ALLERGIES No Known Allergies Objective PHYSICAL EXAM: BP 151/62 Pulse 75 Temp 36.9 ?C (98.4 ?F) (Oral) Resp 18 Ht 177.8 cm (5' 10") Wt 89.8 kg (197 lb 15.6 oz) SpO2 100% BMI 28.41 kg/m? General appearance: Alert and oriented male lying in hospital bed Respiratory: No shortness of breath or cough noted Cardiovascular: Palpable pedal pulse to left, right leg is warm to touch Extremities: Recent amputation to right lower leg Integumentary: Newly discovered DTI to left heel, recent surgery to right lower leg. Abrasion to left lateral ankle. WOUND ASSESSMENT: Wound Type: Surgical - BKA -Guillotine amputation of right foot Location: Right lower leg Present on admission: no - OR 08/23/2019 Measurement: 4.5 x 5.5 cm Wound Bed: beefy red with +bone Exudate: small amount of bloody drainage Odor: none Periwound: intact S/S of infection: no Local pulse: n/a Pain: 2/10 Wound Type: Pressure - Deep tissue injury - Not present on admission Location: Left heel Present on admission: NO Measurement: 2 x 1 cm Wound Bed: intact, no opened ulcer Exudate: None Odor: none Periwound: intact S/S of infection: no Pain: 0/10 Wound Type: Abrasion Location: Left lateral ankle Present on admission: yes Measurement: 0.7 x 0.5 x 0 cm Wound Bed:dry, scabbed over Exudate: none Odor: none Periwound: intact S/S of infection: no Local pulse: palpable Pain: 0/10 Wound Care Plan: Vascular has orders for NS wet to dry bid to right lower leg amputation site. Patient is going back to OR on Monday09/02/19 for right femoral endartectomy. Obtained Lazarus Effect heel boot for patient's left heel and seat cushion. Will order patient [id number] mattress and turn and reposition every 2 hours or more often. A photo was taken of the patient's wound(s). Photos can be found under the Get Images tab on [employer]. Photos are uploaded by the wound skin care consultant and may not be immediately available for viewing. Contact the wound and ostomy care department with questions. SIGNATURE: Luke Menard APRN.NAIL ARTIST,CWOCN PATIENT NAME: Elizabeth Modi DATE: August 29, 2019 TIME: 3:23 PM CONTACT#: [id number] [facility] CONSULT PROG HNO ID: [id number] Author: Doris Eden Service: Endocrinology Author Type: Physician Type: Consult Progress Note Filed: 08/29/2019 8:38 AM Note Text: ENDOCRINOLOGY CONSULT PROGRESS NOTE SERVICE DATE: 08/29/2019 SERVICE TIME: 8:25 AM Subjective INTERVAL HPI: Pt followed for diabetes mellitus type 2 with complications. 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 Had LE angiogram on 08/26. No pian, no SOB, no nausea. Eating well. PT following. DIET HEART HEALTHY DIET NPO has juices! On Boost also. Recent Labs 08/29/19 0714 08/29/19 0400 08/28/19 2148 08/28/19 1736 08/28/19 0322 GLUC -- 83 -- -- -- 108* GLUCOSEMETER 83 -- 106* 88 < > -- < > = values in this interval not displayed. Current Facility-Administered Medications Medication Dose Route Frequency - heparin 5,000 Units injection 5,000 Units SUBCUTANEOUS q 12 H - ondansetron 4 mg tab(s) (ZOFRAN) 4 mg ORAL q 6 H PRN Or - ondansetron (PF) 4 mg injection (ZOFRAN) 4 mg INTRAVENOUS q 6 H PRN - polyethylene glycol 3350 17 g packet (MIRALAX, GLYCOLAX) 17 g ORAL DAILY PRN - docusate sodium 100 mg cap(s) (COLACE) 100 mg ORAL BID PRN - magnesium hydroxide 400 mg/5 mL 30 mL (MOM) 30 mL ORAL DAILY PRN - bisacodyl 10 mg suppository (DULCOLAX) 10 mg RECTAL DAILY PRN - acetaminophen 650 mg tab(s) (TYLENOL) 650 mg ORAL q 6 H PRN - atorvastatin 40 mg tab(s) (LIPITOR) 40 mg ORAL DAILY - lisinopril 10 mg tab(s) (ZESTRIL, PRINIVIL) 10 mg ORAL DAILY - levothyroxine 25 mcg tab(s) (SYNTHROID) 25 mcg ORAL DAILY - dextrose 40 % 15 g 15 g ORAL PRN Or - glucagon 1 mg injection (GLUCAGEN) 1 mg INTRAMUSCULAR PRN Or - dextrose 50% in water 25 mL syringe 12.5 g INTRAVENOUS PRN - gabapentin 100 mg cap(s) (NEURONTIN) 100 mg ORAL q 8 H - insulin lispro pen (rapid acting) (HumaLOG KWIKPEN) SUBCUTANEOUS w MEALS - glimepiride 4 mg tab(s) (AMARYL) 4 mg ORAL DAILY WITH BREAKFAST - metFORMIN 1,000 mg tab(s) (GLUCOPHAGE) 1,000 mg ORAL BID w MEALS - insulin glargine 10 Units pen (long acting) (LANTUS SOLOSTAR, BASAGLAR KWIKPEN) 10 Units SUBCUTANEOUS AT BEDTIME - insulin lispro 4 Units pen (rapid acting) (HumaLOG KWIKPEN) 4 Units SUBCUTANEOUS w MEALS - NaCl 0.9% iv infusion 100 mL/hr INTRAVENOUS CONTINUOUS - metoprolol succinate ER 50 mg tab(s) (TOPROL XL) 50 mg ORAL DAILY - aspirin 81 mg chewable tab(s) 81 mg ORAL DAILY Objective PHYSICAL EXAM: BP 132/76 Pulse 68 Temp (Src) 97.9 (Oral) Resp 18 Ht 5' 10" (1.78m) Wt 197 lb 15.6 oz (89.8kg) SpO2 97% BMI 28.41 kg/(m2). O2 Therapy: Room Air HEENT moist mouth Lungs CTA anteriorly Heart S1 S2 Abdomen soft, flat, NT Extremities: dressing on R leg stump ? DATA: Diagnostic tests reviewed for today's visit: Most recent labs and imaging results. Assessment/Plan Diabetes mellitus type 2, 37 years duration; uncontrolled with complications; HbA1c 9.8. Took insulin in past a few years ago. Started on prog Lantus 10 units qhs on 08/22. Contd home Rx, Metformin 1 gm bid and Glimepiride 4 mg po daily am. Still had hyperglycemia; added prandial humalog 4 units qac tid on 3 pm. BS high on 08/24 night; pt did not eat well (30%) and Humalog was held! BS high at hs on 08/26, >300; no pattern, denies having snack? Eating well and on Boost also, has juices! Watch on current Rx, Lantus/Humalog/oral agents. BS stable. NO JUICES. 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; had B/L LE angiogram to determine definitive management (BKA vs AKA) HTN (hypertension) POA: Yes Assessment AND Plan: on Rx Dyslipidemia POA: Yes Assessment AND Plan: on Rx Hypothyroidism POA: Yes Assessment AND Plan: on LT4 Malnutrition of moderate degree (HCC) POA: Yes Assessment AND Plan: on Boost supplements SIGNATURE: Doris Eden MD PATIENT NAME: Elizabeth Modi DATE: August 29, 2019 TIME: 8:38 AM PAGER: [phone] Normal [facility] Hemogramon 08-29-2019 Erythrocyte distribution width (RBC) [Ratio] 14.1 % Normal 11.6-14.4 [facility] Comment on above: Performed By: #### F ERR #### [facility] [address] [place] [address] Hematocrit (Bld) [Volume fraction] 27.5 % Low 40.1-51.0 [facility] Comment on above: Performed By: #### F ERR #### [facility] [address] [place] [address] Hemoglobin (Bld) [Mass/Vol] 8.8 g/dL Low 13.7-17.5 [facility] Comment on above: Performed By: #### F ERR #### [facility] [address] [place] [address] MCH (RBC) [Entitic mass] 29.0 pg Normal 25.7-32.2 [facility] Comment on above: Performed By: #### F ERR #### [place] [address] MCHC (RBC) [Mass/Vol] 32.0 % Low 32.3-36.5 [facility] Comment on above: Performed By: #### F ERR #### [place] [address] MCV (RBC) [Entitic vol] 90.8 fL Normal 83.2-95.6 [facility] Comment on above: Performed By: #### F ERR #### [address] [address] Nucleated RBC (Bld) [#/Vol] 0.02 thou/cmm High 0.00-0.01 [facility] Comment on above: Performed By: #### F ERR #### [facility] [address] [place], [place] [address] Nucleated RBC/100 WBC (Bld) [Ratio] 0.2 % Normal 0.0-0.2 [facility] Comment on above: Performed By: #### F ERR #### [place] [id number] Platelet mean volume (Bld) [Entitic vol] 9.5 fL Normal 8.7-12.0 [facility] Comment on above: Performed By: #### F ERR #### [facility] [address] [place], [place] [address] Platelets (Bld) [#/Vol] 430 thou/cmm High 141-365 [facility] Comment on above: Performed By: #### F ERR #### [facility] [address] [place], [place] [address] RBC (Bld) [#/Vol] 3.03 mil/cmm Low 4.63-6.08 [facility] Comment on above: Performed By: #### F ERR #### [facility] [address] [place], [place] [address] RDW SD 45.0 fl Normal 36.1-45.8 [facility] Comment on above: Performed By: #### F ERR #### [facility] [address] [place], [place] [address] WBC (Bld) [#/Vol] 10.45 thou/cmm High 4.23-9.07 [facility] Comment on above: Performed By: #### F ERR #### [facility] [address] [place], [place] [address] Magnesium Bloodon 08-29-2019 Magnesium [Mass/Vol] 1.6 mg/dL Normal 1.6-2.6 [facility] Comment on above: Performed By: #### M AG #### [facility] [address] [place], [place] [address] PROGRESSon 08-29-2019 PROGRESS HNO ID: [id number] Author: Zack Jenkins Service: Hospital Medicine Author Type: Physician Type: Progress Notes Filed: 08/29/2019 5:59 PM Note Text: DEPARTMENT OF HOSPITAL MEDICINE PROGRESS NOTE SERVICE DATE: 08/29/2019 SERVICE TIME: 5:56 PM Hospital Medicine/Primary Attending: Zack Jenkins, DO NIGHT AND WEEKEND COVERAGE: After 7pm please page [phone] CHIEF COMPLAINT: no new complaints SUBJECTIVE: Pt seen and examined. No acute events overnight. Denies any leg pain. Denies CP, SOB, NVD, headache, fever/chills or abdominal pain. OBJECTIVE: PHYSICAL EXAM: BP 145/54 Pulse 71 Temp (Src) 98.1 (Oral) Resp 18 Ht 5' 10" (1.78m) Wt 197 lb 15.6 oz (89.8kg) SpO2 98% BMI 28.41 kg/(m2). O2 Therapy: Room Air General - AANDOx3, NAD CV - RRR S1 S2, No M/R/G RESP - CTA B/L No wheezes, ronchi, rales ABD - soft, NT, ND +BS all quads EXT - R foot amputation, no clubbing/cyanosis extremities, moves all extremities NEURO - CN II-XII grossly intact, no focal neuro deficits MEDICATIONS: Current Facility-Administered Medications Medication Dose Route Frequency - heparin 5,000 Units injection 5,000 Units SUBCUTANEOUS q 12 H - ondansetron 4 mg tab(s) (ZOFRAN) 4 mg ORAL q 6 H PRN Or - ondansetron (PF) 4 mg injection (ZOFRAN) 4 mg INTRAVENOUS q 6 H PRN - polyethylene glycol 3350 17 g packet (MIRALAX, GLYCOLAX) 17 g ORAL DAILY PRN - docusate sodium 100 mg cap(s) (COLACE) 100 mg ORAL BID PRN - magnesium hydroxide 400 mg/5 mL 30 mL (MOM) 30 mL ORAL DAILY PRN - bisacodyl 10 mg suppository (DULCOLAX) 10 mg RECTAL DAILY PRN - acetaminophen 650 mg tab(s) (TYLENOL) 650 mg ORAL q 6 H PRN - atorvastatin 40 mg tab(s) (LIPITOR) 40 mg ORAL DAILY - lisinopril 10 mg tab(s) (ZESTRIL, PRINIVIL) 10 mg ORAL DAILY - levothyroxine 25 mcg tab(s) (SYNTHROID) 25 mcg ORAL DAILY - dextrose 40 % 15 g 15 g ORAL PRN Or - glucagon 1 mg injection (GLUCAGEN) 1 mg INTRAMUSCULAR PRN Or - dextrose 50% in water 25 mL syringe 12.5 g INTRAVENOUS PRN - gabapentin 100 mg cap(s) (NEURONTIN) 100 mg ORAL q 8 H - insulin lispro pen (rapid acting) (HumaLOG KWIKPEN) SUBCUTANEOUS w MEALS - glimepiride 4 mg tab(s) (AMARYL) 4 mg ORAL DAILY WITH BREAKFAST - metFORMIN 1,000 mg tab(s) (GLUCOPHAGE) 1,000 mg ORAL BID w MEALS - insulin glargine 10 Units pen (long acting) (LANTUS SOLOSTAR, BASAGLAR KWIKPEN) 10 Units SUBCUTANEOUS AT BEDTIME - insulin lispro 4 Units pen (rapid acting) (HumaLOG KWIKPEN) 4 Units SUBCUTANEOUS w MEALS - metoprolol succinate ER 50 mg tab(s) (TOPROL XL) 50 mg ORAL DAILY - aspirin 81 mg chewable tab(s) 81 mg ORAL DAILY - [START ON 08/30/2019] heparin 3,000 Units in NaCl 0.9% 500 mL irrigation 3,000 Units IRRIGATION ONCE DATA: Diagnostic tests reviewed for today's visit: CBC: Recent Labs 08/29/19 0400 WBC 10.45* RBC 3.03* HB 8.8* HCT 27.5* PLT 430* MCV 90.8 MCH 29.0 MPV 9.5 RDW 14.1 Coags: No results for input(s): INR, APTT in the last 24 hours. Invalid input(s): PT BMP: Recent Labs 08/29/19 0400 NA 138 K 4.0 CHLOR 106 CO2 27 BUN 14 CREAT 0.80 GLUC 83 CMP: Recent Labs 08/29/19 0400 NA 138 K 4.0 CHLOR 106 CO2 27 BUN 14 CREAT 0.80 GLUC 83 CA 7.9* MG 1.6 ANION 9 Cardiac Enzymes: No results for input(s): CK, MB, CKMB, TROPT in the last 24 hours. Liver Function, Amylase, Lipase: No results for input(s): TPROT, ALB, ALT, AST, ALKPHOS, TBILI, AMYLASE, LIPASE, LACTATE in the last 24 hours. MG/PHOS: Recent Labs 08/29/19 0400 MG 1.6 Renal Panel: Recent Labs 08/29/19 0400 CREAT 0.80 BUN 14 GLUC 83 CA 7.9* CHLOR 106 K 4.0 CO2 27 NA 138 Heme: No results for input(s): RETICP, ABSRETIC, LD, STEPHAN, FE, TIBC, TRANSFERSAT in the last 24 hours. 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 #acute on chronic anemia-improved- in setting of recent surgery ? #Hypomagnesemia- replace with Mag ox 800mg today, repeat Mag in AM. Replace PRN. ? #hx PAD-continue statin and aspirin, management per vascular?surgery? ? #DM 2, uncontrolled-patient had been on insulin in past, unable to afford. He then started pills and a1c has gone from 7 to 9 to 9.8, continue SSIC, appreciate Endocrinology consult. ? #hypothyroidism-contin ue synthroid ? #hypophos-replace PRN, and check daily ? #HTN-continue home regimen, monitor BP closely ? #HLD-statin? ? #immobility-PT and OT, patient to be out of bed with meals ? VTE Prophylaxis: Heparin 5000 units Sub Q BID ? Disposition: Home with [facility] pending progress and surgery Plan of care discussed with: Provider, RN, Patient SIGNATURE: Zack Jenkins DO PATIENT NAME: Elizabeth Modi DATE: August 29, 2019 TIME: 5:56 PM PAGER/CONTACT #: Team color pager Disclaimer: Portions of this note may have been generated using [employer] voice recognition software. Reasonable efforts were made to correct any dictation errors that resulted due to the programming of this software but some may still be present. Normal [facility] PROGRESS HNO ID: [id number] Author: Tom Prescott DO Service: General Surgery Author Type: Resident Type: Progress Notes Filed: 08/29/2019 10:01 AM Note Text: Attestation signed by Jovanny Parmar at 08/29/2019 3:11 PM Attending Note I personally saw and examined the patient. I reviewed the resident's note. I agree with the resident's assessment and plan unless otherwise noted. Discussion at bedside and patient and his daughter Luzmaria. Daughter states that her father was ambulating in the home without difficulty, and only used a wheelchair when dizzy. Cardiac testing completed. Will plan for OR Monday for R femoral endartectomy Signature: Jovanny Parmar MD Date: 08/29/2019 Time: 3:10 PM Vascular/Thoracic Surgery Progress Note SERVICE DATE: 08/29/2019 Vascular AND Thoracic Surgery Service Pager: For questions or concerns Mon-Mon 6a-5p please page [phone]. After 5pm and on Weekends and Holidays, please page [phone] if in ICU or [phone] if on RNF. Subjective SUBJECTIVE: Patient seen and examined. NAEON. Denies pain, feeling well this AM. Afebrile, denies fever chills. Diet: DIET HEART HEALTHY DIET NPO Objective OBJECTIVE: Vitals: Temp (24hrs), Av.7 ?C (98.1 ?F), Min:36.4 ?C (97.5 ?F), Max:37.1 ?C (98.8 ?F) BP 132/76 Pulse 68 Temp 36.6 ?C (97.9 ?F) (Oral) Resp 18 Ht 177.8 cm (5' 10") Wt 89.8 kg (197 lb 15.6 oz) SpO2 97% BMI 28.41 kg/m? O2 Therapy: Room Air IANDO: Date 08/28/19699 - 08/29/1965808/29/19699 - 08/30/19 0659 Shift 1077-3118 3143-3534 3276-8276 24 Hour Total 0728-7747 6115-8485 9280-0967 24 Hour Total INTAKE Shift Total OUTPUT Urine 400 1150 1550 Void (ml) 400 1150 1550 # of BMs Stool Incontinence 1 x 1 x Number of BMs 1 x 1 x Shift Total 400 1150 1550 Weight (kg) 89.3 89.3 89.8 89.8 89.8 89.8 89.8 89.8 Intake/Output Summary (Last 24 hours) at 08/29/2019 0956 Last data filed at 08/29/2019 0608 Gross per 24 hour Intake ? Output 1250 ml Net -1250 ml MEDICATIONS Current Facility-Administered Medications Medication Dose Route Frequency - metoprolol succinate ER 50 mg tab(s) (TOPROL XL) 50 mg ORAL DAILY - aspirin 81 mg chewable tab(s) 81 mg ORAL DAILY - NaCl 0.9% iv infusion 100 mL/hr INTRAVENOUS CONTINUOUS - insulin lispro 4 Units pen (rapid acting) (HumaLOG KWIKPEN) 4 Units SUBCUTANEOUS w MEALS - gabapentin 100 mg cap(s) (NEURONTIN) 100 mg ORAL q 8 H - insulin lispro pen (rapid acting) (HumaLOG KWIKPEN) SUBCUTANEOUS w MEALS - glimepiride 4 mg tab(s) (AMARYL) 4 mg ORAL DAILY WITH BREAKFAST - metFORMIN 1,000 mg tab(s) (GLUCOPHAGE) 1,000 mg ORAL BID w MEALS - insulin glargine 10 Units pen (long acting) (LANTUS SOLOSTAR, BASAGLAR KWIKPEN) 10 Units SUBCUTANEOUS AT BEDTIME - heparin 5,000 Units injection 5,000 Units SUBCUTANEOUS q 12 H - ondansetron 4 mg tab(s) (ZOFRAN) 4 mg ORAL q 6 H PRN Or - ondansetron (PF) 4 mg injection (ZOFRAN) 4 mg INTRAVENOUS q 6 H PRN - polyethylene glycol 3350 17 g packet (MIRALAX, GLYCOLAX) 17 g ORAL DAILY PRN - docusate sodium 100 mg cap(s) (COLACE) 100 mg ORAL BID PRN - magnesium hydroxide 400 mg/5 mL 30 mL (MOM) 30 mL ORAL DAILY PRN - bisacodyl 10 mg suppository (DULCOLAX) 10 mg RECTAL DAILY PRN - acetaminophen 650 mg tab(s) (TYLENOL) 650 mg ORAL q 6 H PRN - atorvastatin 40 mg tab(s) (LIPITOR) 40 mg ORAL DAILY - lisinopril 10 mg tab(s) (ZESTRIL, PRINIVIL) 10 mg ORAL DAILY - levothyroxine 25 mcg tab(s) (SYNTHROID) 25 mcg ORAL DAILY - dextrose 40 % 15 g 15 g ORAL PRN Or - glucagon 1 mg injection (GLUCAGEN) 1 mg INTRAMUSCULAR PRN Or - dextrose 50% in water 25 mL syringe 12.5 g INTRAVENOUS PRN Labs: Recent Labs 08/29/19 0400 08/28/19 0322 NA 138 138 K 4.0 4.1 CHLOR 106 105 CO2 27 27 BUN 14 14 CREAT 0.80 0.91 GLUC 83 108* ANION 9 10 CA 7.9* 7.5* MG 1.6 1.1* P -- 3.3 WBC 10.45* 10.42* HB 8.8* 9.5* HCT 27.5* 29.8* PLT 430* 390* Exam: GENERAL: No distress, Alert, pleasant, smiling NEURO: AANDOx3, CN II-XII grossly intact HEENT: normocephalic, atraumatic, EOMI NECK: trachea midline, no JVD LUNGS: Unlabored breathing, O2 Therapy: Room Air CARDIAC: Regular rate, BP as above ABDOMEN: Soft, non-tender, non-distended, no rebound or guarding EXTREMITIES: R stump with Kerlix, jero wrap in place with minimal strike-through on dressing, LLE sensation and motor intact PSYCH: normal mood and affect, pleasent ASSESSMENT AND PLAN: Active Hospital Problems Diagnosis Date Noted - Malnutrition of moderate degree (HCC) 08/22/2019 - Gangrene of foot (HCC) 08/21/2019 - Diabetes (HCC) 08/21/2019 - HTN (hypertension) 08/21/2019 - Dyslipidemia 08/21/2019 - Hypothyroidism 08/21/2019 Assessment: 79 year old male with PMH thyroid disease, HTN, dyslipidemia, DM, claudication who presents with necrosis of R foot. 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 Angiogram 08/26 with partial occlusion R common femoral artery. Plan: - DIET HEART HEALTHY DIET NPO - NST - moderate protein calorie malnutrition NPO/IVF at midnight for planned procedure tomorrow - Plan for Right Femoral endarterectomy 08/[address] Figueroa Cleared by cardiac after echo and stress test Echo EF 65% Vein mapping ordered - leukocytosis stable post op guillotine ampuation, abx stopped per ID 08/23 - Daily wet to dry dressings with krelex and jero wrap - PT/OT rec acute rehab - Mobilization as able, out of bed to chair - SQ - Further care per primary Assessment and plan discussed with attending Tom Prescott DO, MBA PGY-1 General Surgery Resident 08/29/2019 10:01 AM Pager below: Vascular AND Thoracic Surgery Service Pager: For questions or concerns Mon-Fri 6a-5p please page [phone]. After 5pm and on Weekends and Holidays, please page [phone] if in ICU or [phone] if on RNF. Normal [facility] THERAPY NTon 08-29-2019 THERAPY NT HNO ID: [id number] Author: Tanja (Pt) Hoda Service: Physical Therapy Author Type: Physical Therapist Type: Therapy (PT/OT/Speech/Resp) Filed: 08/29/2019 3:21 PM Note Text: Physical Therapy Treatment SERVICE DATE: 08/29/2019 SERVICE TIME: 1138 to 1208 ROOM: [place] [address] Recommended Discharge Disposition: Acute Rehab Recommended Discharge Disposition Comments: Pt is functioning far below his baseline level. He would benefit from intense rehabilitation program to mximize functional gains and aide in return to prior level of independence. Justification For Post Acute Needs: Willing to participate;Motivated; Living the community premorbidly;Good sitting tolerance;Good family support;Anticipate patient will tolerate 3 hours of daily therapy at the time of admission to post-acute setting;Anticipated community discharge PT Recommendations to Nursing: Not appropriate for OOB activity at this time PT 6 Clicks Score: 13 Precautions/Activity Restrictions: Weight Bearing Restrictions Isolation Type: None Extremity With Weight Bearing Restricted: Right Lower Extremity Right Lower Extremity Weight Bearing Status: NWB ASSESSMENT : Patient presents with increased fatigue this session, progressing slowly towards goal. Discouraged by lack of ability to stand with assist, declines attempts this session. Encouragement provided, completes below the knee amputation protocol therapeutic exercise. Patient would benefit from additional physical therapy to address deficits, improve strength/balance/mobil ity. Recommend acute rehab at discharge. Patient Disposition at Start of Session: Supine in Bed;Call Singh in Reach Patient Disposition at End of Session: Supine in Bed;Call Singh in Reach Tolerance Limited By Fatigue Physical Therapy Problem List: Safety Deficits;Impaired Self Care;Decreased Activity Tolerance;Decreased Strength;Functional Mobility Impairment;Balance Impaired Patient /Caregiver Goals: Walk Goals for Plan of Care: Able to perform HEP with: Verbal Cues Only Transfer supine to/from sit with: Supervision Transfer sit to/from stand with: Minimal Assistance Ambulate with: Moderate Assistance Distance: 5' intervals Device: Wheeled Walker Progress Toward Goals: Progressing slower than expected Due To: prolonged hospital stay, complicated course Rehab Potential: Good PLAN: Treatment Frequency (times per week): 7(3-5) Current admission Treatment Interventions: Self Care / Home Management;Energy Conservation Training;Strengthening ;Functional Mobility Training;Balance Training Plan of Care developed with: Patient TREATMENT INTERVENTIONS: Therapy Diagnosis: Difficulty walking-musculoskeleta l;Muscle Weakness (generalized) Interventions Provided: Therapeutic Exercise (32950);Therapeutic Activity (01150) Therapeutic Exercise (40025) Treatment Minutes: 15 1 unit Skilled Intervention(s): Patient completed general strengthening exercises in sitting, supine (quad set, gluteal set, hip abd/add, straight leg raise, long arc quad, short arc quad, hip adductor squeeze) x 10-15 reps bilateral lower extremity, with min assist, with min verbal/tactile cues for optimal muscle recruitment, muscle activation, and muscle strengthening. Right below the knee amputation protocol therapeutic exercise, left lower extremity general strengthening therapeutic exercise. Therapeutic Activity (25410) Treatment Minutes: 10 1 unit Skilled Intervention(s): Instructed patient in log roll technique - cues for reaching for rails to assist with rolling Bridging with cues for left lower extremity knee flexion and push through left lower extremity and elbows to achieve position; avoid weight bearing through residual limb. Bed mobility: Instruction to sit at side of bed. head of bed slightly elevated and cues to move bilateral lower extremity to edge of bed. Cues to reach across for rail to assist. Patient does not need to utilize rail to pull self to edge of bed. Requires stand by assist for safety due to possibility for retrograde balance. Complains of dizziness resolves in approximately one minutes. Instruction to scoot at edge of bed until left lower extremity touches floor to improve proprioception/decreas e dizziness. Requires min assist. Total Timed Code Treatment Minutes: 25 Total Treatment Time (minutes): 25 SUBJECTIVE: Current Hospital Course: Chart reviewed; 08/26 SURGERY/PROCEDURE(S): Diagnostic bilatera lower extremity angiogram ANESTHESIA: Monitored Anesthesia Care Reason for Physical Therapy Consult : treatment Relevant Past Medical History: thyroid, HTN, DM, claudication Patient Report: "I don't know why I'm so tired." agreeable to physical therapy. Denies pain. No family present. 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 Entry To Home: Stairs;With Rail Number Of Stairs Into Home: 4 Number Of Stairs To Bed/Bath: 0 Tub/Shower Type: walk in shower Laundry: main level Equipment Owned: Rollator;Wheelchair Prior Functional Level: Required Assistance;Within Functional Limits Assistance Required With: Cleaning Prior Functional Level Comments: pt independent without devices and completed ADLs OBJECTIVE: CURRENT FUNCTIONAL STATUS: Current Functional Mobility Assist Level Additional Information Rolling Stand By Assistance Supine to Sit Contact Guard Assistance Sit to Supine Contact Guard Assistance Scooting Minimal Assistance Sit to Stand (declines attempt) Stand to Sit (declines attempt) Bed to Chair Toilet/Commode Gait (pt unable) Stairs Curb Step Car Transfer Balance: Static Sitting;Dynamic Sitting Static Sitting Balance: Good Patient able to maintain balance without handhold support, limited postural sway Dynamic Sitting Balance: Fair Patient accepts minimal challenge, able to maintain balance while turning head/trunk Activity Tolerance: Sitting Activity Sitting Activity: at EOB for ther ex Sitting Activity Tolerance (in minutes): 5 JH-HLM: 3: Sit at edge of bed Please see discipline specific clinical documentation flowsheet for complete details for this therapy evaluation/treatment. SIGNATURE: Tanja Drummond PT PATIENT NAME: Elizabeth Modi DATE: August 29, 2019 TIME: 3:09 PM Normal [facility] Basic Panelon 08-28-2019 Creatinine [Mass/Vol] 0.91 mg/dL Normal 0.67-1.17 [facility] Comment on above: Result Comment: Use of this assay is not recommended for patients undergoing treatment with phenindione, due to the potential for falsely depressed results. Performed By: #### C _ANA #### [place] [address] Anion gap [Moles/Vol] 10 mmol/L Normal 8-16 [facility] Comment on above: Performed By: #### C _ANA #### [facility] [address] [place], [place] [address] CO2 [Moles/Vol] 27 mmol/L Normal 21-32 [facility] Comment on above: Performed By: #### C _ANA #### [address] [address] Urea nitrogen [Mass/Vol] 14 mg/dL Normal 7-18 [facility] Comment on above: Performed By: #### C _ANA #### [facility] [address] [place], [place] [address] Calcium [Mass/Vol] 7.5 mg/dL Low 8.5-10.1 [facility] Comment on above: Performed By: #### C _ANA #### [facility] [address] [place], [place] [address] Glucose [Mass/Vol] 108 mg/dL High 70-99 [facility] Comment on above: Performed By: #### C _ANA #### [facility] [address] [place] [address] Chloride [Moles/Vol] 105 mmol/L Normal 98-107 [facility] Comment on above: Performed By: #### C _ANA #### [facility] [address] [place] [address] Potassium [Moles/Vol] 4.1 mmol/L Normal 3.5-5.1 [facility] Comment on above: Performed By: #### C _ANA #### [facility] [address] [place] [address] Sodium [Moles/Vol] 138 mmol/L Normal 136-145 [facility] Comment on above: Performed By: #### C _ANA #### [facility] [address] [place] [address] CASE MANAGEMon 08-28-2019 CASE MANAGEM HNO ID: [id number] Author: Tami Izquierdo) KAVIN Patricio Service: Care Management Author Type: Registered Nurse Type: Care Mgt Progress Note Filed: 08/28/2019 1:57 PM Note Text: CARE MANAGEMENT PROGRESS NOTE SERVICE DATE: 08/28/2019 SERVICE TIME: 1:56 PM LOS: 7 days Chart reviewed. 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 Referral to [facility]- pt will need precert. Will follow clinical progress. SIGNATURE: Tami Patricio RN PATIENT NAME: Elizabeth Modi DATE: August 28, 2019 TIME: 1:56 PM PAGER/CONTACT #: [phone] Normal [facility] CONSULT PROGon 08-28-2019 CONSULT PROG HNO ID: [id number] Author: Doris Eden Service: Endocrinology Author Type: Physician Type: Consult Progress Note Filed: 08/28/2019 8:31 AM Note Text: ENDOCRINOLOGY CONSULT PROGRESS NOTE SERVICE DATE: 08/28/2019 SERVICE TIME: 8:15 AM Subjective INTERVAL HPI: Pt followed for diabetes mellitus type 2 with complications. 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 Had LE angiogram on 08/26. No pian, no SOB, no nausea. Eating well. PT following. DIET HEART HEALTHY has juices! On Boost also. Recent Labs 08/28/19 0322 08/27/19 2128 08/27/19 1621 08/27/19 1308 08/26/19 0236 GLUC 108* -- -- -- -- 114* GLUCOSEMETER -- 324* 172* 110* < > -- < > = values in this interval not displayed. Current Facility-Administered Medications Medication Dose Route Frequency - heparin 5,000 Units injection 5,000 Units SUBCUTANEOUS q 12 H - ondansetron 4 mg tab(s) (ZOFRAN) 4 mg ORAL q 6 H PRN Or - ondansetron (PF) 4 mg injection (ZOFRAN) 4 mg INTRAVENOUS q 6 H PRN - polyethylene glycol 3350 17 g packet (MIRALAX, GLYCOLAX) 17 g ORAL DAILY PRN - docusate sodium 100 mg cap(s) (COLACE) 100 mg ORAL BID PRN - magnesium hydroxide 400 mg/5 mL 30 mL (MOM) 30 mL ORAL DAILY PRN - bisacodyl 10 mg suppository (DULCOLAX) 10 mg RECTAL DAILY PRN - acetaminophen 650 mg tab(s) (TYLENOL) 650 mg ORAL q 6 H PRN - atorvastatin 40 mg tab(s) (LIPITOR) 40 mg ORAL DAILY - lisinopril 10 mg tab(s) (ZESTRIL, PRINIVIL) 10 mg ORAL DAILY - levothyroxine 25 mcg tab(s) (SYNTHROID) 25 mcg ORAL DAILY - dextrose 40 % 15 g 15 g ORAL PRN Or - glucagon 1 mg injection (GLUCAGEN) 1 mg INTRAMUSCULAR PRN Or - dextrose 50% in water 25 mL syringe 12.5 g INTRAVENOUS PRN - gabapentin 100 mg cap(s) (NEURONTIN) 100 mg ORAL q 8 H - metoprolol succinate ER 25 mg tab(s) (TOPROL XL) 25 mg ORAL DAILY - insulin lispro pen (rapid acting) (HumaLOG KWIKPEN) SUBCUTANEOUS w MEALS - glimepiride 4 mg tab(s) (AMARYL) 4 mg ORAL DAILY WITH BREAKFAST - metFORMIN 1,000 mg tab(s) (GLUCOPHAGE) 1,000 mg ORAL BID w MEALS - insulin glargine 10 Units pen (long acting) (LANTUS SOLOSTAR, BASAGLAR KWIKPEN) 10 Units SUBCUTANEOUS AT BEDTIME - insulin lispro 4 Units pen (rapid acting) (HumaLOG KWIKPEN) 4 Units SUBCUTANEOUS w MEALS - NaCl 0.9% iv infusion 100 mL/hr INTRAVENOUS CONTINUOUS Objective PHYSICAL EXAM: BP 138/50 Pulse 78 Temp (Src) 97.9 (Oral) Resp 16 Ht 5' 10" (1.78m) Wt 196 lb 13.9 oz (89.3kg) SpO2 96% BMI 28.25 kg/(m2). O2 Therapy: Room Air HEENT moist mouth Lungs CTA anteriorly Heart S1 S2 Abdomen soft, flat, NT Extremities: dressing on R leg stump ? DATA: Diagnostic tests reviewed for today's visit: Most recent labs and imaging results. Assessment/Plan Diabetes mellitus type 2, 37 years duration; uncontrolled with complications; HbA1c 9.8. Took insulin in past a few years ago. Started on prog Lantus 10 units qhs on 08/22. Contd home Rx, Metformin 1 gm bid and Glimepiride 4 mg po daily am. Still had hyperglycemia; added prandial humalog 4 units qac tid on 3 pm. BS high on 08/24 night; pt did not eat well (30%) and Humalog was held! BS high at hs, >300; no pattern, denies having snack? Eating well and on Boost also, has juices! Watch on current Rx, Lantus/Humalog/oral agents. NO JUICE. 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; had B/L LE angiogram to determine definitive management (BKA vs AKA) HTN (hypertension) POA: Yes Assessment AND Plan: on Rx Dyslipidemia POA: Yes Assessment AND Plan: on Rx Hypothyroidism POA: Yes Assessment AND Plan: on LT4 Malnutrition of moderate degree (HCC) POA: Yes Assessment AND Plan: on Boost supplements SIGNATURE: Doris Eden MD PATIENT NAME: Elizabeth Modi DATE: August 28, 2019 TIME: 8:31 AM PAGER: [phone] Normal [facility] Hemogram/Diffon 08-28-2019 Abs Immature Grans 0.21 thou/cmm High 0.00-0.05 [facility] Comment on above: Performed By: #### G LMET #### [place] [address] Abs Neut (ANC) 7.25 thou/cmm High 1.78-5.38 [facility] Comment on above: Performed By: #### G LMET #### [place] [address] Abs. Baso 0.02 thou/cmm Normal 0.01-0.08 [facility] Comment on above: Performed By: #### G LMET #### [place] [address] Abs. [place] 0.96 thou/cmm High 0.30-0.82 [facility] Comment on above: Performed By: #### G LMET #### [place] [address] Basophils/100 WBC (Bld) 0.2 % Normal [facility] Comment on above: Performed By: #### G LMET #### [address] [address] Eosinophils (Bld) [#/Vol] 0.16 thou/cmm Normal 0.04-0. 54 [facility] Comment on above: Performed By: #### G LMET #### [place] [address] Eosinophils/100 WBC (Bld) 1.5 % Normal [facility] Comment on above: Performed By: #### G LMET #### [place] [address] Erythrocyte distribution width (RBC) [Ratio] 13.4 % Normal 11.6-14.4 [facility] Comment on above: Performed By: #### G LMET #### [facility] [address] [place] [address] Hematocrit (Bld) [Volume fraction] 29.8 % Low 40.1-51.0 [facility] Comment on above: Performed By: #### G LMET #### [facility] [address] [place] [address] Hemoglobin (Bld) [Mass/Vol] 9.5 g/dL Low 13.7-17.5 [facility] Comment on above: Performed By: #### G LMET #### [facility] [address] [place] [address] Immature Grans 2.00 % Normal [facility] Comment on above: Performed By: #### G LMET #### [facility] [address] [place] [address] Lymphocytes (Bld) [#/Vol] 1.82 thou/cmm Normal 0.84-2. 85 [facility] Comment on above: Performed By: #### G LMET #### [place] [address] Lymphocytes/100 WBC (Bld) 17.5 % Normal [facility] Comment on above: Performed By: #### G LMET #### [facility] [address] [place] [address] MCH (RBC) [Entitic mass] 28.4 pg Normal 25.7-32.2 [facility] Comment on above: Performed By: #### G LMET #### [facility] [address] [place] [address] MCHC (RBC) [Mass/Vol] 31.9 % Low 32.3-36.5 [facility] Comment on above: Performed By: #### G LMET #### [facility] [address] [place] [address] MCV (RBC) [Entitic vol] 89.2 fL Normal 83.2-95.6 [facility] Comment on above: Performed By: #### G LMET #### [facility] [address] [place], [place] [address] Monocytes/100 WBC (Bld) 9.2 % Normal A [facility] Comment on above: Performed By: #### G LMET #### [facility] [address] [place], [place] [address] Platelet mean volume (Bld) [Entitic vol] 9.6 fL Normal 8.7-12.0 [facility] Comment on above: Performed By: #### G LMET #### [facility] [address] [place], [place] [address] Platelets (Bld) [#/Vol] 390 thou/cmm High 141-365 [facility] Comment on above: Performed By: #### G LMET #### [facility] [address] [place], [place] [address] RBC (Bld) [#/Vol] 3.34 mil/cmm Low 4.63-6.08 [facility] Comment on above: Performed By: #### G LMET #### [facility] [address] [place], [place] [address] RDW SD 43.3 fl Normal 36.1-45.8 [facility] Comment on above: Performed By: #### G LMET #### [facility] [address] [place], [place] [address] Seg Neutrophil 69.6 % Normal [facility] Comment on above: Performed By: #### G LMET #### [address] [address] WBC (Bld) [#/Vol] 10.42 thou/cmm High 4.23-9.07 [facility] Comment on above: Performed By: #### G LMET #### [facility] [address] [place], [place] [address] Magnesium Bloodon 08-28-2019 Magnesium [Mass/Vol] 1.1 mg/dL Low 1.6-2.6 [facility] Comment on above: Performed By: #### F ERR #### [address] [address] NM CARDIAC PERF STRESS/PHARM on 08-28-2019 NM CARDIAC PERF STRESS/PHARM * * *Final Report* * * DATE OF EXAM: Aug 28 2019 9:30AM [facility] 0006 - [place] CARDIAC PERF STRESS/PHARM / PROCEDURE REASON: Pre-op, intermediate/high risk surgery, poor exercise cap, risk factors * * * * Physician Interpretation * * * * PATIENT: Name: ELIZABETH MODI Age: 79 years Gender: M CONCLUSIONS: 1. SPECT Perfusion Study: Normal. 2. There is no scintigraphic evidence for inducible ischemia. 3. No evidence of scarred myocardium. 4. Left ventricle is normal in size. The left ventricle systolic function is normal. 5. Right ventricle is normal in size. The right ventricle systolic function is normal. 6. This is a low risk scan. Gated Stress FBP LVEF % 72 Prior Study Comparison No prior nuclear cardiology exam available for comparison. Nuclear Med Report:1-Day Tc-Tetrofosmin Gated SPECT Myocardial Perfusion with Regadenoson Stress: Myocardial perfusion imaging was performed at rest 30 minutes following the IV injection of Tc-99m tetrofosmin. The patient received 0.4 mg of regadenoson, via rapid IV push, immediately followed by Tc-99m tetrofosmin IV. Gated post stress tomographic imaging was performed 30 to 60 minutes later. See administered doses below. [facility] Date of service: 08/28/2019 9:30:00 AM Indication: Assessment for suspected CAD and Peripheral artery/vascular disease. Interpreting physician: Ignacia Mendez MD Patient History: History of hypertension, dyslipidemia, diabetes mellitus and Prior smoker. Medications currently taking are B-nicole, ACEI, statins, oral diabetic meds and insulin. Height: 177.80 cm BSA: 2.10 m? Weight: 89.36 kg BMI: 28.3 kg/m? Imaging Protocol Limitation Reason G.I. uptake and Diaphragmatic attenuation. Primary Rhythm: Sinus. Exam Type: Rest Stress Radiopharm: Tc-99m Tetrofosmin Tc-99m Tetrofosmin Dosage(mCi): 12.2 35.9 Stress Agent: Regadenoson 0.4mg Supply provided from [facility] Resting Heart Rate: 74 bpm Resting Blood Press: 137/64 mmHg Image Quality The overall study imaging quality was deemed to be fair. The following technical issues were noted: G.I. uptake and Diaphragmatic attenuation. FINDINGS: Left Ventricle Wall Motion: Stress IR:3D - All segments are normal. Rest IR:3D - Gated Stress FBP - Reversibility - Stress IR:3D Stress IR:3D Gated Stress FBP LVEF: 72 % ED Volume: 82 ml ES Volume: 23 ml TID: 0.96 Perfusion Findings Stress IR:3D - Summed Score=0 All segments demonstrate normal perfusion. Rest IR:3D - Summed Score=0 All segments demonstrate normal perfusion. Stress IR:3D Rest IR:3D Summed Score=0 Summed Score=0 LEFT VENTRICLE The left ventricle is normal in size. Left ventricular systolic function is normal. Right Ventricle The right ventricle is normal in size. Right ventricle systolic function is normal. Stress Test Findings: There is no scintigraphic evidence for inducible ischemia. There is no evidence of scarring. The stress test was terminated due to the following: End of Protocol. Peak HR 98 bpm. (69 % MPHR) Peak BP 130 mmHg/49 mmHg Patient experienced shortness of breath during stress. Stress ECG normal ST segment response. Stress complications: none. Stress comments: Lungs Clear. Lexiscan 0.4mg IVP given followed by nuclear isotope. Baseline EKG ST's within normal limits with no significant ST changes during Lexiscan. Denied chest sx during test. Final ------ Stress ECG Report: [facility] Date of service: 08/28/2019 9:30:00 AM Ordering physician: GOLD Estes Specialist: Tawana Larson Senior Advocate: Libertad Rose Stress ECG interpreting physician: Shira Zuleta MD PATIENT: Name: ELIZABETH MODI Age: 79 years Gender: M Height: 177.80 cm BSA: 2.10 m? Weight: 89.36 kg BMI: 28.3 kg/m? STRESS ECG CONCLUSION: ECG Response: Non-Ischemic STRESS ECG SUMMARY: The patient's resting heart rate was 74 bpm and blood pressure was 137/64 mmHg. The maximum heart rate was 98 bpm, which is 69% predicted for age. The double product achieved was 30588. Peak heart rate was 98 bpm and peak blood pressure was 130/49 mmHg. STRESS ECG FINDINGS: Indications: Assessment for suspected CAD Diagnosis: Hypertension, Hyperlipidemia and Peripheral Vascular Disease Medications: Home Meds - Lisinopril,Metformin,A ctos,Synthroid,Atorvas tatin,Glimepiride. In Hospital- Insulin,Gabapentin Metoprolol,Aspirin, Heparin SQ . Resting ECG: Normal Sinus Rhythm and WNL Pharamcologic Protocol: Regadenoson Stress Test: +----+--+---+---+ Step HR SYS GUS +----+--+---+---+ 1 98 127 67 +----+--+---+---+ 2 90 146 52 +----+--+---+---+ 3 88 134 56 +----+--+---+---+ 4 85 +----+--+---+---+ 5 85 134 46 +----+--+---+---+ 6 83 +----+--+---+---+ 7 84 +----+--+---+---+ 8 82 130 49 +----+--+---+---+ +-----+--+---+---+ HR SYS GUS +-----+--+---+---+ Final 98 130 49 +-----+--+---+---+ +----+ +---- ----+ --------- ----+ Step Arrhythmias Symptoms Comments +----+ +---- ----+ --------- ----+ 1 Rare PVC (<3/min), Rare PAC SOB Chest Sx #0/0-10. Mild SOB. No (<3/min) and A.Couplets ST changes. +----+ +---- ----+ --------- ----+ 2 Chest Sx #0/0-10. No ST changes. SOB subsided +----+ +---- ----+ --------- ----+ 3 Chest Sx #0/0-10. No ST changes. +----+ +---- ----+ --------- ----+ 4 Chest Sx #0/0-10. No ST changes. +----+ +---- ----+ --------- ----+ 5 Chest Sx #0/0-10. No ST changes. +----+ +---- ----+ --------- ----+ 6 Chest Sx #0/0-10. No ST changes. +----+ +---- ----+ --------- ----+ 7 Chest Sx #0/0-10. No ST changes. +----+ +---- ----+ --------- ----+ 8 Rare PVC (<3/min) Chest Sx #0/0-10. No ST changes. +----+ +---- ----+ --------- ----+ Resting HR: 74 bpm Peak HR: 98 bpm (69% MPHR) Resting BP: 137 / 64 mmHg Peak BP: 130 / 49 mmHg Chronotropic response index (CRI): 0.51 Rate Pressure Product (RPP): 53723 Reason for test termination: End of Protocol. Symptoms during test: Shortness of breath. Heart rate response: Adequate heart rate response Blood pressure response: Normal BP response ST segment and T wave changes: No ST changes Comments: Lungs Clear. Lexiscan 0.4mg IVP given followed by nuclear isotope. Baseline EKG ST's within normal limits with no significant ST changes during Lexiscan. Denied chest sx during test Final ------ Stress Fund Raiser Report: [facility] Date of service: 08/28/2019 9:30:00 AM Supervising physician: Shira Zuleta MD PATIENT: Name: ELIZABETH MODI Age: 79 years Gender: M The supervising physician was present during the stress procedure. Final Assistant Golf Professional: RICHARD Transcribe Date/Time: Aug 28 2019 9:30A Dictated by : IGNACIA MENDEZ MD This examination was interpreted and the report reviewed and electronically signed by: IGNACIA MENDEZ MD on Aug 28 2019 3:54PM EST Normal [facility] NURSING PROGon 08-28-2019 NURSING PROG HNO ID: [id number] Author: Tawana (Rn) KAVIN Larson Service: Cardiovascular Testing Author Type: Registered Nurse Type: Nursing Progress Note Filed: 08/28/2019 2:58 PM Note Text: Dr Zuleta notified of labs prior to testing.Lexiscan Nuclear Stress Test procedure explained. Patient verbalized understanding and test completed with post nuclear scan to follow. Normal [facility] OPERATIVE NOon 08-28-2019 OPERATIVE NO HNO ID: [id number] Author: Jovanny Parmar Service: Vascular Surgery Author Type: Physician Type: Operative Report Filed: 08/29/2019 3:01 PM Note Text: [facility] - Operative Report ELIZABETH MODI : 1940 AGE: 79. SEX: M PATIENT TYPE: I HOSP SVC: INTM LOCATION: [facility] ATTENDING PHYSICIAN: Jovanny Parmar MD CSN NUMBER: [id number] DATE OF SURGERY/PROCEDURE: 08/27/2019 INCISION/PROCEDURE START TIME: 10:01 AM INCISION CLOSE/PROCEDURE END TIME: 10:55 AM PREOPERATIVE DIAGNOSIS: Gangrene. POSTOPERATIVE DIAGNOSIS: Gangrene. SURGEON: Jovanny Parmar MD GALVANOMETER ASSEMBLER: Tom Prescott. SURGERY/PROCEDURE: Angiogram with bilateral lower extremity runoff. ANESTHESIA: MAC. 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 He presents today for angiogram for further evaluation of his arterial system. DESCRIPTION OF PROCEDURE: The patient was seen in the preoperative area. Risks and benefits of procedure were reviewed with the patient. He was consented for the procedure and brought back to the operating room where IV sedation was administered by Anesthesia. He was prepped and draped in sterile fashion. Ultrasound guidance was used to identify the patient's left common femoral artery. This appeared to be significantly calcified, however, did appear to be patent. The right common femoral artery was also interrogated by the ultrasound. This showed again significant calcification. The left side appeared to be a better access site and therefore 1% lidocaine was infiltrated over the area. Ultrasound guidance was used to access the left common femoral artery with a micropuncture needle this was serially upsized using Seldinger technique through a 5-Chinese sheath and Omni Flush catheter. Aortogram was performed, which showed a patent aorta and patent bilateral iliac systems. Bilateral lower extremity runoff was then performed after the catheter was brought down to the level of the bifurcation of the iliac arteries. Please see the accompanying imaging report for details. 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 At this time, the catheter was removed. Sheath was removed and pressure was held until hemostasis was achieved. Patient will be sent to Recovery in stable condition. Jovanny Parmar MD LM:[id number] /[id number] [facility] PROGRESSon 08-28-2019 PROGRESS HNO ID: [id number] Author: Zack Jenkins Service: Hospital Medicine Author Type: Physician Type: Progress Notes Filed: 08/28/2019 6:10 PM Note Text: DEPARTMENT OF HOSPITAL MEDICINE PROGRESS NOTE SERVICE DATE: 08/28/2019 SERVICE TIME: 6:05 PM Hospital Medicine/Primary Attending: Zack Jenkins DO NIGHT AND WEEKEND COVERAGE: After 7pm please page [phone] CHIEF COMPLAINT: No new complaints SUBJECTIVE: Pt seen and examined. Denies pain in his R leg. Denies CP, SOB, NVD, headache, fever/chills or abdominal pain. OBJECTIVE: PHYSICAL EXAM: BP 116/58 Pulse 86 Temp (Src) 98.2 (Oral) Resp 18 Ht 5' 10" (1.78m) Wt 196 lb 13.9 oz (89.3kg) SpO2 94% BMI 28.25 kg/(m2). O2 Therapy: Room Air General - AANDOx3, NAD, Calm CV - RRR S1 S2, No M/R/G RESP - CTA B/L No wheezes, ronchi, rales ABD - soft, NT, ND +BS EXT - R foot amputation, no clubbing/cyanosis extremities, moves all extremities NEURO - CN II-XII grossly intact, no focal deficits MEDICATIONS: Current Facility-Administered Medications Medication Dose Route Frequency - heparin 5,000 Units injection 5,000 Units SUBCUTANEOUS q 12 H - ondansetron 4 mg tab(s) (ZOFRAN) 4 mg ORAL q 6 H PRN Or - ondansetron (PF) 4 mg injection (ZOFRAN) 4 mg INTRAVENOUS q 6 H PRN - polyethylene glycol 3350 17 g packet (MIRALAX, GLYCOLAX) 17 g ORAL DAILY PRN - docusate sodium 100 mg cap(s) (COLACE) 100 mg ORAL BID PRN - magnesium hydroxide 400 mg/5 mL 30 mL (MOM) 30 mL ORAL DAILY PRN - bisacodyl 10 mg suppository (DULCOLAX) 10 mg RECTAL DAILY PRN - acetaminophen 650 mg tab(s) (TYLENOL) 650 mg ORAL q 6 H PRN - atorvastatin 40 mg tab(s) (LIPITOR) 40 mg ORAL DAILY - lisinopril 10 mg tab(s) (ZESTRIL, PRINIVIL) 10 mg ORAL DAILY - levothyroxine 25 mcg tab(s) (SYNTHROID) 25 mcg ORAL DAILY - dextrose 40 % 15 g 15 g ORAL PRN Or - glucagon 1 mg injection (GLUCAGEN) 1 mg INTRAMUSCULAR PRN Or - dextrose 50% in water 25 mL syringe 12.5 g INTRAVENOUS PRN - gabapentin 100 mg cap(s) (NEURONTIN) 100 mg ORAL q 8 H - insulin lispro pen (rapid acting) (HumaLOG KWIKPEN) SUBCUTANEOUS w MEALS - glimepiride 4 mg tab(s) (AMARYL) 4 mg ORAL DAILY WITH BREAKFAST - metFORMIN 1,000 mg tab(s) (GLUCOPHAGE) 1,000 mg ORAL BID w MEALS - insulin glargine 10 Units pen (long acting) (LANTUS SOLOSTAR, BASAGLAR KWIKPEN) 10 Units SUBCUTANEOUS AT BEDTIME - insulin lispro 4 Units pen (rapid acting) (HumaLOG KWIKPEN) 4 Units SUBCUTANEOUS w MEALS - NaCl 0.9% iv infusion 100 mL/hr INTRAVENOUS CONTINUOUS - [START ON 08/29/2019] metoprolol succinate ER 50 mg tab(s) (TOPROL XL) 50 mg ORAL DAILY - aspirin 81 mg chewable tab(s) 81 mg ORAL DAILY - magnesium sulfate in water 2 g in sterile water 50 ml 2 g INTRAVENOUS ONCE DATA: Diagnostic tests reviewed for today's visit: CBC: Recent Labs 08/28/19321 WBC 10.42* RBC 3.34* HB 9.5* HCT 29.8* PLT 390* MCV 89.2 MCH 28.4 MPV 9.6 RDW 13.4 Coags: No results for input(s): INR, APTT in the last 24 hours. Invalid input(s): PT BMP: Recent Labs 08/28/19321 NA 138 K 4.1 CHLOR 105 CO2 27 BUN 14 CREAT 0.91 GLUC 108* CMP: Recent Labs 08/28/19321 NA 138 K 4.1 CHLOR 105 CO2 27 BUN 14 CREAT 0.91 GLUC 108* CA 7.5* MG 1.1* ANION 10 Cardiac Enzymes: No results for input(s): CK, MB, CKMB, TROPT in the last 24 hours. Liver Function, Amylase, Lipase: No results for input(s): TPROT, ALB, ALT, AST, ALKPHOS, TBILI, AMYLASE, LIPASE, LACTATE in the last 24 hours. MG/PHOS: Recent Labs 08/28/19321 MG 1.1* P 3.3 Renal Panel: Recent Labs 08/28/19321 CREAT 0.91 BUN 14 GLUC 108* CA 7.5* P 3.3 CHLOR 105 K 4.1 CO2 27 NA 138 Heme: No results for input(s): RETICP, ABSRETIC, LD, STEPHAN, FE, TIBC, TRANSFERSAT in the last 24 hours. No results found for: UALBCR Assessment/Plan #RLE wound infection with wet gangrene and necrosis POD #5 s/p amputation -Angio 08/26 showing partial occlusion R DIRECTOR INDUSTRIAL NURSING -Vascular and Ortho consults -Plan is for AKA vs BKA on Monday #acute on chronic anemia-improved- in setting of recent surgery #Hypomagnesemia- replace with Mag sulf IV 2g, repeat Mag. Replace PRN. #hx PAD-continue statin and aspirin, management per vascular surgery #DM 2, uncontrolled-patient had been on insulin in past, unable to afford. He then started pills and a1c has gone from 7 to 9 to 9.8 today, continue SSIC, appreciate Endocrinology consult. #hypothyroidism-contin ue synthroid #hypophos-replace PRN, and check daily #HTN-continue home regimen, monitor BP closely #HLD-statin #immobility-PT and OT, patient to be out of bed with meals VTE Prophylaxis: Heparin 5000 units Sub Q BID Disposition: Home with [facility] pending progress and surgery Plan of care discussed with: Provider, RN, Patient SIGNATURE: Zack Jenkins DO PATIENT NAME: Elizabeth Modi DATE: August 28, 2019 TIME: 6:05 PM PAGER/CONTACT #: Team color pager Disclaimer: Portions of this note may have been generated using [employer] voice recognition software. Reasonable efforts were made to correct any dictation errors that resulted due to the programming of this software but some may still be present. Normal [facility] PROGRESS HNO ID: [id number] Author: Lula Posada (Rt) Service: Radiology Author Type: Home Office Claims Examiner Type: Progress Notes Filed: 08/28/2019 3:12 PM Note Text: RADIOLOGY SERVICE PROGRESS NOTE SERVICE DATE: 08/28/2019 SERVICE TIME: 3:11 PM PATIENT IDENTITY VERIFICATION COMPLETED USING TWO (2) STANDARD IDENTIFIERS: Name and Date of confirmed by patient verbally PATIENT GENDER DATA: .male ALLERGIES: Reviewed and unchanged MEDICATIONS REVIEWED: No PATIENT RELEVANT IMPLANT DATA REVIEWED: Not Applicable CREATININE: Creatinine Date Value Ref Range Status 08/28/2019 0.91 0.67 - 1.17 mg/dL Final Comment: Use of this assay is not recommended for patients undergoing treatment with phenindione, due to the potential for falsely depressed results. 08/26/2019 0.86 0.67 - 1.17 mg/dL Final Comment: Use of this assay is not recommended for patients undergoing treatment with phenindione, due to the potential for falsely depressed results. 08/24/2019 0.76 0.67 - 1.17 mg/dL Final Comment: Use of this assay is not recommended for patients undergoing treatment with phenindione, due to the potential for falsely depressed results. P.O.C.T. RESULTS: N/A August 28, [address] PERFORMED: No IV SITE: Inpatient - refer to [facility] documentation POST EXAM PIV STATUS: Left in for next appointment PROCEDURE TYPE: NM Stress: 12.2mCi [id number] was administered IV for Rest Imaging at 1250 by ms. 35.9 mCi [id number] was administered IV for Stress Imaging at 240 by ty. ADMINISTRATION TIME: 1250 PATIENT DISCHARGED TO: Patient taken to IP transport area for return to RNF/ICU/ED. A Diagnostic radioactive procedure has taken place, with no further precautions necessary other than routine body substance precautions. More information regarding radiation safety can be found using this link: [email or web address] SIGNATURE: RT Albino PATIENT NAME: Elizabeth Modi DATE: August 28, 2019 TIME: 3:11 PM PAGER/CONTACT #: Mela [facility] PROGRESS HNO ID: [id number] Author: Francine Roberts Service: Vascular Surgery Author Type: Resident Type: Progress Notes Filed: 08/28/2019 10:08 AM Note Text: Attestation signed by Gordo Figueroa at 08/28/2019 6:04 PM Overall at this point in time we are awaiting the stress test and echocardiogram results to determine exactly what level of functionality he has from a cardiac standpoint. It's interesting that as we discuss this further it seems that he may have been getting around primarily in a wheelchair and if he does not have strong cardiac reserve this could push us towards above-knee amputation as a primary treatment in this setting. We will go ahead and reevaluate this further once patient has completed his cardiac workup.I personally saw and examined the patient on 08/28/2019. I reviewed the resident's note. I agree with the resident's assessment and plan unless otherwise noted. Vascular/Thoracic Surgery Progress Note SERVICE DATE: 08/28/2019 Vascular AND Thoracic Surgery Service Pager: For questions or concerns Mon-Fri 6a-5p please page [phone]. After 5pm and on Weekends and Holidays, please page [phone] if in ICU or [phone] if on RNF. Subjective SUBJECTIVE: NAEON. Denies pain, feeling well this AM. Diet: DIET HEART HEALTHY Objective OBJECTIVE: Vitals: Temp (24hrs), Av.6 ?C (97.8 ?F), Min:36.2 ?C (97.2 ?F), Max:36.9 ?C (98.4 ?F) BP 138/50 Pulse 78 Temp 36.6 ?C (97.9 ?F) (Oral) Resp 16 Ht 177.8 cm (5' 10") Wt 89.3 kg (196 lb 13.9 oz) SpO2 96% BMI 28.25 kg/m? O2 Therapy: Room Air IANDO: Date 08/27/19699 - 08/28/1965808/28/19699 - 08/29/1958 Shift 9011-2129 7517-5234 4647-3764 24 Hour Total 5605-8212 2588-9352 3422-0208 24 Hour Total INTAKE PO 30 30 PO 30 30 IV 550 550 OR Crystalloid intake (mL) 500 500 Volume (mL) (NaCl 0.9% iv infusion) 50 50 Shift Total 580 580 OUTPUT Urine 100 225 150 475 Void (ml) 100 225 150 475 OR Urine Output 0 0 Blood 10 10 Estimated Blood loss 10 10 Shift Total 110 225 150 485 Weight (kg) 89.3 89.3 89.3 89.3 89.3 89.3 89.3 89.3 Intake/Output Summary (Last 24 hours) at 08/28/2019 0632 Last data filed at 08/28/2019 0100 Gross per 24 hour Intake 580 ml Output 485 ml Net 95 ml MEDICATIONS Current Facility-Administered Medications Medication Dose Route Frequency - NaCl 0.9% iv infusion 100 mL/hr INTRAVENOUS CONTINUOUS - insulin lispro 4 Units pen (rapid acting) (HumaLOG KWIKPEN) 4 Units SUBCUTANEOUS w MEALS - gabapentin 100 mg cap(s) (NEURONTIN) 100 mg ORAL q 8 H - metoprolol succinate ER 25 mg tab(s) (TOPROL XL) 25 mg ORAL DAILY - insulin lispro pen (rapid acting) (HumaLOG KWIKPEN) SUBCUTANEOUS w MEALS - glimepiride 4 mg tab(s) (AMARYL) 4 mg ORAL DAILY WITH BREAKFAST - metFORMIN 1,000 mg tab(s) (GLUCOPHAGE) 1,000 mg ORAL BID w MEALS - insulin glargine 10 Units pen (long acting) (LANTUS SOLOSTAR, BASAGLAR KWIKPEN) 10 Units SUBCUTANEOUS AT BEDTIME - heparin 5,000 Units injection 5,000 Units SUBCUTANEOUS q 12 H - ondansetron 4 mg tab(s) (ZOFRAN) 4 mg ORAL q 6 H PRN Or - ondansetron (PF) 4 mg injection (ZOFRAN) 4 mg INTRAVENOUS q 6 H PRN - polyethylene glycol 3350 17 g packet (MIRALAX, GLYCOLAX) 17 g ORAL DAILY PRN - docusate sodium 100 mg cap(s) (COLACE) 100 mg ORAL BID PRN - magnesium hydroxide 400 mg/5 mL 30 mL (MOM) 30 mL ORAL DAILY PRN - bisacodyl 10 mg suppository (DULCOLAX) 10 mg RECTAL DAILY PRN - acetaminophen 650 mg tab(s) (TYLENOL) 650 mg ORAL q 6 H PRN - atorvastatin 40 mg tab(s) (LIPITOR) 40 mg ORAL DAILY - lisinopril 10 mg tab(s) (ZESTRIL, PRINIVIL) 10 mg ORAL DAILY - levothyroxine 25 mcg tab(s) (SYNTHROID) 25 mcg ORAL DAILY - dextrose 40 % 15 g 15 g ORAL PRN Or - glucagon 1 mg injection (GLUCAGEN) 1 mg INTRAMUSCULAR PRN Or - dextrose 50% in water 25 mL syringe 12.5 g INTRAVENOUS PRN Labs: Recent Labs 08/28/19 0322 08/26/19 0236 NA 138 137 K 4.1 3.8 CHLOR 105 104 CO2 27 25 BUN 14 18 CREAT 0.91 0.86 GLUC 108* 114* ANION 10 12 CA 7.5* 7.8* MG 1.1* -- P 3.3 -- WBC 10.42* 10.21* HB 9.5* 10.5* HCT 29.8* 32.3* PLT 390* 474* Exam: GENERAL: No distress, Alert, pleasant, smiling NEURO: AANDOx3, CN II-XII grossly intact HEENT: normocephalic, atraumatic, EOMI NECK: trachea midline, no JVD LUNGS: Unlabored breathing, O2 Therapy: Room Air CARDIAC: Regular rate, BP as above ABDOMEN: Soft, non-tender, non-distended, no rebound or guarding EXTREMITIES: R stump with Kerlix, jero wrap in place with minimal strike-through on dressing PSYCH: normal mood and affect, pleasent ASSESSMENT AND PLAN: Active Hospital Problems Diagnosis Date Noted - Malnutrition of moderate degree (HCC) 08/22/2019 - Gangrene of foot (HCC) 08/21/2019 - Diabetes (HCC) 08/21/2019 - HTN (hypertension) 08/21/2019 - Dyslipidemia 08/21/2019 - Hypothyroidism 08/21/2019 Assessment: 79 year old male with PMH thyroid disease, HTN, dyslipidemia, DM, claudication who presents with necrosis of R foot. 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 Angiogram 08/26 with partial occlusion R common femoral artery. Plan: - DIET HEART HEALTHY - NST - moderate protein calorie malnutrition - leukocytosis stable post op guillotine ampuation, abx stopped per ID 08/23 - Daily wet to dry dressings with krelex and jero wrap - PT/OT rec acute rehab - Mobilization as able, out of bed to chair - [facility] - Plan for OR Monday for femoral endarterectomy and bypass with BKA vs AKA - awaiting cardiac clearance - vein mapping pending - Further care per primary Assessment and plan discussed with attending Francine Roberts MD General Surgery, PGY-3 August 28, 2019 6:36 AM Vascular AND Thoracic Surgery Service Pager: For questions or concerns Mon-Mon 6a-5p please page [phone]. After 5pm and on Weekends and Holidays, please page [phone] if in ICU or [phone] if on RNF. Normal [facility] Phosphorus Bloodon 0 Phosphate [Mass/Vol] 3.3 mg/dL Normal 2.5-4.9 [facility] Comment on above: Performed By: #### P 8 #### [place] [address] THERAPY NTon 08-28-2019 THERAPY NT HNO ID: [id number] Author: Tanja (Pt) Hoda Service: Physical Therapy Author Type: Physical Therapist Type: Therapy (PT/OT/Speech/Resp) Filed: 08/28/2019 3:32 PM Note Text: PHYSICAL THERAPY MISSED VISIT SERVICE DATE: 08/28/2019 SERVICE TIME: 1529 to 1529 ROOM: [place] [address] Attempted Treatment. Patient not seen due to Test/Procedure(out of room for stress test). Will reattempt as able. SIGNATURE: Tanja Drummond, PT PATIENT NAME: Elizabeth Modi DATE: August 28, 2019 TIME: 3:30 PM Normal [facility] THERAPY NT HNO ID: [id number] Author: An SantiagoOtr/Vickie Miller Service: Occupational Therapy Author Type: Occupational Therapist Type: Therapy (PT/OT/Speech/Resp) Filed: 08/28/2019 11:27 AM Note Text: Occupational Therapy Treatment SERVICE DATE: 08/28/2019 SERVICE TIME: 1026 to 1105 ROOM: [place] [address] Recommended Discharge Disposition: Acute Rehab Recommended Discharge Disposition Comments: Patient has a new RLE amputation/medical complexity and is independent, living alone at baseline. Would benefit from intensive rehab post acute to regain full independence with use of DME/adaptive techniques as needed in order to safely return home alone. Patient is highly motivated and participates well in therapy. Justification For Post Acute Needs: Anticipate patient will tolerate 3 hours of daily therapy at the time of admission to post-acute setting;Anticipated community discharge;Cognition intact;Good premorbid functional status;Good sitting tolerance;Living the community premorbidly;Medically complex;Motivated;Will ing to participate;Anticipate that patient will require daily (5x/wk) skilled therapy in a post-acute facility setting at the time of acute hospital discharge OT Recommendations to Nursing: ADL?s in chair;Bedside Commode for Toileting;OOB for meals;Transfer to Chair;With assist of 2 people Equipment: Commode-Bedside;Wheele d Walker(gait belt; wheeled walker to stand) OT 6 Clicks Score: 17 Precautions/Activity Restrictions: Weight Bearing Restrictions;Fall Risk;Lines/Tubes/Drain s Isolation Type: None Extremity With Weight Bearing Restricted: Right Lower Extremity Right Lower Extremity Weight Bearing Status: NWB ASSESSMENT: Patient is progressing well toward established goals, despite prolonged and ongoing hospital course. Patient remains positive, motivated and participates well in therapy. Patient with gains in bed mobility, static/light dynamic sitting and standing at edge of bed or up with walker, increased upper body self care, increased independence in lower body self care and improved activities of daily living transfer to chair or bedside commode. Anticipate further gains toward prior level of independence and safe return home with continued skilled OT acutely and post acutely. Continue to recommend intensive acute rehab at discharge to regain independence following RLE amputations. Will continue to follow patient acutely and post op if cleared for further surgical intervention. Patient Disposition at Start of Session: Supine in Bed;Call Singh in Reach Patient Disposition at End of Session: OOB in Chair;Call Singh in Reach;Nursing Personnel Present Tolerated Full Session Occupational Therapy Problem List: Education Deficit;Safety Deficits;Impaired Self Care;Decreased Activity Tolerance;Decreased Strength;Functional Mobility Impairment;Balance Impaired Patient /Caregiver Goals: Go To Rehab;Care For Self Goals for Plan of Care: Grooming with: Set Up Upper Body Dressing with: Set Up Lower Body Dressing with: Contact Guard Assistance Toilet Hygiene with: Minimal Assistance Chair Transfer with: Minimal Assistance Toilet Transfer with: Minimal Assistance(BSC) Additional Goal 1: pt will adhere to NWB status for RLE 100% of the time Additional Goal 2: pt will maximize upper body strength to increase transfers to min assist Transfer: stand pivot transfer wtih min assist Progress Toward Goals: Progressing as expected(progressing well. Further tx/surgery still pending) Rehab Potential: Good PLAN: Treatment Frequency (times per week): 5(3-5 times per week) Current admission Treatment Interventions: Education;Self Care / Home Management;Strengtheni ng;Functional Mobility Training;Balance Training Plan of Care developed with: Patient TREATMENT INTERVENTIONS: Therapy Diagnosis: Reduced mobility-other;Decreas ed activities of daily living (ADL);General symptoms and signs-other Interventions Provided: Self Long-Term Management (35381) Self Long-Term Management (86141) Treatment Minutes: 39 3 units Skilled Intervention(s):Full ADL training for bathing, grooming and dressing provided at edge of bed and chair level, with wheeled walker or gait belt/stand pivot for mobility. Patient's functional performance with tasks with skilled assist noted below. Walker safety/ADL transfer education provided. Cues for scooting fully to edge of chair/bed to prepare for transfer, as well as for hand placement and body positioning to increase ease/independence with sit<>stand. Cues for LLE extension at knee and upright head/trunk to improve standing tolerance and balance during Lower body bathing and toileting tasks by bedside. Cues for seated rest and resume, with education on activity pacing, breaking tasks down to further increase independence and safety. Education for standing and transfer with wheeled walker, as well as partial stand pivot to chair/ bedside commode based on level of fatigue. Education for importance of being out of bed, increased daily participation in all activities of daily living at bed or chair level to continue to progress and improve strength acutely while medical care/further testing and surgery ongoing. Patient is very motivated for rehab and follows commands well. Review of plan of care and discharge recommendation provided. Positioned for comfort in chair, with call light and needs in reach at end of sesssion. 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 Had LE angiogram on 08/26. Stress test/Echo pending for tomorrow and further surgery following if clearance obtained for surgery. 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 Agreeable to activities of daily living training at edge of bed today. No report of pain. "I 'm hoping to get to rehab soon. It feels so good to be out of bed. I want to get back home. 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 Entry To Home: Stairs;With Rail Number Of Stairs Into Home: 4 Number Of Stairs To Bed/Bath: 0 Tub/Shower Type: walk in shower Laundry: main level Equipment Owned: Rollator;Wheelchair Prior Functional Level: Required Assistance;Within Functional Limits Assistance Required With: Cleaning Prior Functional Level Comments: pt independent without devices and completed ADLs OBJECTIVE: Cognition/Communicatio n Deficits Responsiveness: Alert;Awake Follows Commands: 3-step Commands(min cues new learning) Executive Function Deficits: Safety Awareness;Insight to Deficits Insight to Deficits: Minimal impairment Safety Awareness Deficit: Minimal impairment CURRENT FUNCTIONAL STATUS: Current Activities of Daily Living Assist Level Feeding Modified Independent Grooming Stand By Assistance(at edge of bed; set up in chair) Bathing Upper Body Stand By Assistance Bathing Lower Body Moderate Assistance(/max; improved washing lenin area, buttocks side to side) Dressing Upper Body Contact Guard Assistance Dressing Lower Body Maximal Assistance(/mod;mprove d ability to don left sock,rock for pants sitting) Toileting Moderate Assistance Instrumental Activities of Daily Living Assist Level Meal/Beverage Prep ((would all be w/c level; NE due to acuity) Max IADL by obser) Light Cleaning Laundry Medication Management with Strategies Functional Mobility Assist Level Rolling Modified Independent Supine to Sit Stand By Assistance(bed flat, bedrail) Sit to Supine Stand By Assistance Scooting Contact Guard Assistance Sit to Stand Maximal Assistance(x1 with walker) Stand to Sit Maximal Assistance Bed to Chair Maximal Assistance(recommend assist of 2 with nursing for safety) Stand Pivot(3/4 stand pivot to right) Gait Belt Toilet/Commode Maximal Assistance(x1-2 to bsc) Functional Mobility (stand/transfer only at this time with max x 1-2) Wheeled Walker(or stand pivot) Hand Dominance: Left Range of Motion: WFL Strength: Strength Limitation Comments Strength Limitation Comments: 4/5 Balance: Static Sitting;Dynamic Sitting;Static Standing;Dynamic Standing Static Sitting Balance: Good Patient able to maintain balance without handhold support, limited postural sway Dynamic Sitting Balance: Fair(/fair+) Patient accepts minimal challenge, able to maintain balance while turning head/trunk(/fair+) Static Standing Balance: Poor(max x 1 with wheeled walker) Patient requires handhold support and moderate to maximal assistance to maintain position(max x 1 with wheeled walker) Dynamic Standing Balance: Poor(pivot transfer only) Patient unable to accept challenge or move without loss of balance(pivot transfer only) Activity Tolerance: Sitting Activity;Standing Activity Sitting Activity: edge of bed for bathing, grooming, dressing Sitting Activity Tolerance (in minutes): 20 Standing Activity: Lower body bathing/toileting/butt ocks; ADL transfer Standing Activity Tolerance (in minutes): 0.5(with max x 1 and wheeled walker; may need max 2 if fatigued) Please see discipline specific clinical documentation flowsheet for complete details for this therapy evaluation/treatment. SIGNATURE: NADIR Soto/Serene PATIENT NAME: Elizabeth Modi DATE: August 28, 2019 TIME: 11:17 AM Normal [facility] ANES [place] 08-27-2019 ANES POST HNO ID: [id number] Author: Oanh Pugh Service: Anesthesiology Author Type: Anesthesiologist Type: Anesthesia PostOp Filed: 08/27/2019 5:17 PM Note Text: POST ANESTHESIA EVALUATION NOTE SERVICE DATE: 08/27/2019 SERVICE TIME: 5:17 PM : 1940 Vitals: 08/27/19 1102 08/27/19 1150 08/27/19 1306 08/27/19 1635 Temp: 36.2 ?C (97.2 ?F) 36.4 ?C (97.5 ?F) 36.8 ?C (98.2 ?F) 36.8 ?C (98.2 ?F) 08/27/19 1200 08/27/19 1215 08/27/19 1306 08/27/19 1635 BP: 144/63 153/58 142/54 146/59 08/27/19 1200 08/27/19 1215 08/27/19 1306 08/27/19 1635 Pulse: 78 78 75 78 08/27/19 1200 08/27/19 1215 08/27/19 1306 08/27/19 1635 Resp: 18 17 18 16 08/27/19 1200 08/27/19 1215 08/27/19 1306 08/27/19 1635 SpO2: 98% 98% 96% 94% Validated Vital Signs: Yes POST ANES STATUS: No apparent anesthetic complications. The patient is appropriately hydrated with stable respiratory and cardiovascular status. Patient has safe and adequate airway control. The patient has appropriate pain relief and no significant post operative nausea or vomiting. The patient has achieved baseline mental status. Intra-Operative Events: No Significant Anesthesia Events Further assessment by Anesthesia Service: None Other Remarks: SIGNATURE: Oanh Pugh MD PATIENT NAME: Elizabeth Modi DATE: August 27, 2019 TIME: 5:16 PM PAGER/CONTACT #: Mela [facility] ANES PREOPon 08-27-2019 ANES PREOP HNO ID: [id number] Author: Jesse Jimenez Service: Anesthesiology Author Type: Physician Type: Anesthesia PreOp Filed: 08/27/2019 11:01 AM Note Text: ANESTHESIOLOGY DAY OF SURGERY NOTE SERVICE DATE: 08/27/2019 SERVICE TIME: 11:00 AM : 1940 Procedure(s) (LRB): ANGIOGRAM EXTREMITY LOWER (Right) Surgeon(s): Jovanny Santos (Kim) DO [place] Estimated body mass index is 28.25 kg/m? as calculated from the following: Height as of this encounter: 177.8 cm (5' 10"). Weight as of this encounter: 89.3 kg (196 lb 13.9 oz). Most recent hematocrit and potassium results: Hematocrit 32.3 08/26/2019 Potassium 3.8 08/26/2019 ANES DOS/PREOP NOTE: Vitals: 08/27/19 0426 08/27/19 0541 08/27/19 0804 08/27/19 0920 BP: 134/50 157/51 161/81 Pulse: 77 73 81 Resp: 18 18 16 Temp: 37 ?C (98.6 ?F) 36.9 ?C (98.4 ?F) 36.4 ?C (97.5 ?F) TempSrc: Oral Oral Temporal Artery SpO2: 98% 97% 93% Weight: 89.3 kg (196 lb 13.9 oz) Height: ACTIVE PROBLEM LIST Gangrene of Foot (Hcc) Diabetes (Hcc) Htn (Hypertension) Dyslipidemia Hypothyroidism Malnutrition of Moderate Degree (Hcc) PAST MEDICAL HISTORY Diagnosis Date - DM (diabetes mellitus) (HCC) - Dyslipidemia - HTN (hypertension) - Hypothyroidism History reviewed. No pertinent surgical history. No family history on file. Social History: Social History Tobacco Use - Smoking status: Not on file Substance Use Topics - Alcohol use: Not on file - Drug use: Not on file No current facility-administered medications on file prior to encounter. Current Outpatient Medications on File Prior to Encounter Medication Sig - atorvastatin (LIPITOR) 40 mg tablet Take 40 mg by mouth once daily. - levothyroxine (SYNTHROID) 25 mcg tablet Take 25 mcg by mouth once daily. - lisinopril (ZESTRIL, PRINIVIL) 10 mg tablet Take 10 mg by mouth once daily. - pioglitazone (ACTOS) 30 mg tablet Take 30 mg by mouth once daily. - metFORMIN (GLUCOPHAGE) 1,000 mg tablet Take 1,000 mg by mouth twice daily. - glimepiride (AMARYL) 4 mg tablet Take 4 mg by mouth twice daily. Current Facility-Administered Medications Medication Dose Route Frequency Provider Last Rate Last Dose - heparin injection X (OR/PROCEDURE) PRN Jovanny Carlos 1,000 Units at 08/27/19 1007 - iohexol IV injection (OMNIPAQUE 300) X (OR/PROCEDURE) PRN Jovanny Carlos 50 mL at 08/27/19 1009 - lidocaine 10 mg/mL (1 %) injection (XYLOCAINE) X (OR/PROCEDURE) PRN Jovanny Carlos 11 mL at 08/27/19 1038 - [MAR Hold due to Transfer] NaCl 0.9% iv infusion 100 mL/hr INTRAVENOUS CONTINUOUS Tom (Res) DO Kenyon 100 mL/hr at 08/27/19 0024 100 mL/hr at 08/27/19 0024 - [MAR Hold due to Transfer] insulin lispro 4 Units pen (rapid acting) (HumaLOG KWIKPEN) 4 Units SUBCUTANEOUS w MEALS Doris Midha 3 Units at 08/26/19 1804 - [MAR Hold due to Transfer] gabapentin 100 mg cap(s) (NEURONTIN) 100 mg ORAL q 8 H Jennifer (Res) Horattas 100 mg at 08/27/19 0544 - [MAR Hold due to Transfer] metoprolol succinate ER 25 mg tab(s) (TOPROL XL) 25 mg ORAL DAILY Jennifer (Res) Dots 25 mg at 08/27/19 0806 - [MAR Hold due to Transfer] insulin lispro pen (rapid acting) (HumaLOG KWIKPEN) SUBCUTANEOUS w MEALS Doris Midha 2 Units at 08/26/19 1252 - [MAR Hold due to Transfer] glimepiride 4 mg tab(s) (AMARYL) 4 mg ORAL DAILY WITH BREAKFAST Doris Midha 4 mg at 08/26/19 0854 - [MAR Hold due to Transfer] metFORMIN 1,000 mg tab(s) (GLUCOPHAGE) 1,000 mg ORAL BID w MEALS Doris Midha 1,000 mg at 08/26/19 1804 - [MAR Hold due to Transfer] insulin glargine 10 Units pen (long acting) (LANTUS SOLOSTAR, BASAGLAR KWIKPEN) 10 Units SUBCUTANEOUS AT BEDTIME Doris Midha 10 Units at 08/26/192113 - [MAR Hold due to Transfer] heparin 5,000 Units injection 5,000 Units SUBCUTANEOUS q 12 H Jennifer (Res) Hormeles 5,000 Units at 08/26/192112 - [MAR Hold due to Transfer] ondansetron 4 mg tab(s) (ZOFRAN) 4 mg ORAL q 6 H PRN Jennifer (Res) Hormeles Or - [MAR Hold due to Transfer] ondansetron (PF) 4 mg injection (ZOFRAN) 4 mg INTRAVENOUS q 6 H PRN Jennifer (Res) Hormeles - [MAR Hold due to Transfer] polyethylene glycol 3350 17 g packet (MIRALAX, GLYCOLAX) 17 g ORAL DAILY PRN Jennifer (Res) Hormeles - [MAR Hold due to Transfer] docusate sodium 100 mg cap(s) (COLACE) 100 mg ORAL BID PRN Jennifer (Res) Hormeles - [MAR Hold due to Transfer] magnesium hydroxide 400 mg/5 mL 30 mL (MOM) 30 mL ORAL DAILY PRN Jennifer (Res) Horattas - [MAR Hold due to Transfer] bisacodyl 10 mg suppository (DULCOLAX) 10 mg RECTAL DAILY PRN Jennifer (Res) Hormeles - [MAR Hold due to Transfer] acetaminophen 650 mg tab(s) (TYLENOL) 650 mg ORAL q 6 H PRN Jennifer (Res) Horattas - [MAR Hold due to Transfer] atorvastatin 40 mg tab(s) (LIPITOR) 40 mg ORAL DAILY Jennifer (Res) Horattas 40 mg at 08/26/19 2113 - [MAR Hold due to Transfer] lisinopril 10 mg tab(s) (ZESTRIL, PRINIVIL) 10 mg ORAL DAILY Jennifer (Res) Horattas 10 mg at 08/26/19 0850 - [MAR Hold due to Transfer] levothyroxine 25 mcg tab(s) (SYNTHROID) 25 mcg ORAL DAILY Jennifer (Res) Horattas 25 mcg at 08/27/19 0544 - [MAR Hold due to Transfer] dextrose 40 % 15 g 15 g ORAL PRN Jennifer (Res) Horattas Or - [MAR Hold due to Transfer] glucagon 1 mg injection (GLUCAGEN) 1 mg INTRAMUSCULAR PRN Jennifer (Res) Horattas Or - [MAR Hold due to Transfer] dextrose 50% in water 25 mL syringe 12.5 g INTRAVENOUS PRN Jennifer (Res) Horattas Allergies: ALLERGIES No Known Allergies DOS EXAM: Adequate NPO status: Yes Anesthetic risks, benefits, alternatives, personnel and consent discussed: Yes Patient agrees to proceed: Yes Previous Anesthesia: No history of adverse event. Airway Assessment: MP 2; Neck ROM: Full ROM without neurologic symptoms; Airway Evaluation: No significant abnormalities Symptoms of Sleep Apnea: None Dentition: Teeth intact Additional Physical Exam: Lungs: Patient health status unchanged since recent history and physical. See history and physical for exam findings. Cardiac: Patient health status unchanged since recent history and physical. See history and physical for exam findings. Additional Pertinent Findings: N/A Blood Products: Not anticipated for this procedure. Anesthetic Plan: MAC, Standard ASA Monitors Pain Management Plan: Parenteral or Oral ASA Class: 3 Other Medical Problems: None Chronic Beta Nicole medication administered within 24 hours: N/A I have interviewed and examined the patient. I have reviewed the medical record and/or the pre-anesthesia evaluation, pertinent labs, and test results. Significant changes in the patient's condition since the History and Physical, not otherwise documented in primary service progress notes: No This contains updated information obtained within 48 hours of Surgery/Procedure. SIGNATURE: Jesse Jimenez MD PATIENT NAME: Elizabeth Modi DATE: August 27, 2019 TIME: 11:00 AM CSN: [id number] [facility] BRIEF OP NOTon 08-27-2019 BRIEF OP NOT HNO ID: [id number] Author: Tom Prescott DO Service: General Surgery Author Type: Resident Type: Brief Op Note Filed: 08/27/2019 11:09 AM Note Text: Attestation signed by Jovanny Parmar at 08/28/2019 11:28 AM Attending Note I personally saw and examined the patient. I reviewed the resident's note. I agree with the resident's assessment and plan unless otherwise noted. Signature: Jovanny Parmar MD Date: 08/28/2019 Time: 11:28 AM BRIEF OPERATIVE / PROCEDURE NOTE LOG ID: [id number] SURGERY/PROCEDURE DATE: 08/27/2019 INCISION/PROCEDURE START TIME: 10:01 AM INCISION CLOSE/PROCEDURE END TIME: 10:55 AM SURGEON(S)/PROCEDURALI ST(S) AND GALVANOMETER ASSEMBLER(S): Surgeon(s) and Role: * Jovanny Parmar - Primary * Tom Prescott DO - Resident - Assisting Distribution Collection Operator: Lori Schmid SA SURGERY/PROCEDURE(S): Diagnostic bilatera lower extremity angiogram ANESTHESIA: Monitored Anesthesia Care FINDINGS: 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 ESTIMATED BLOOD LOSS: 5 mls SPECIMENS: None COMPLICATIONS: None PRE-OP/PRE-PROCEDURE DIAGNOSIS: Right lower extremity ischemia, wet gangreen POST-OP/POST-PROCEDURE DIAGNOSIS: Same as Preop SIGNATURE: Tom Prescott DO PATIENT NAME: Elizabeth Modi DATE: August 27, 2019 TIME: 11:08 AM PAGER/CONTACT #: Mela [facility] CONSULTon 08-27-2019 CONSULT HNO ID: [id number] Author: Gold Sullivan Service: Cardiovascular Medicine Author Type: Physician Type: Consults Filed: 08/28/2019 9:29 AM Note Text: Cardiovascular Medicine Consult Note SERVICE DATE: 08/27/2019 SERVICE TIME: 3:27 PM CONSULTING PHYSICIAN: Gold Montgomery MD PCP: No primary care provider on file. ATTENDING: Sue Bianchi REASON FOR CONSULT: Perioperative cardiac risk assessment CHIEF COMPLAINT: Gangrene of foot (HCC) [I96] HPI:Cardiac consultation at the request of Dr. Dexter Chávez. Mr. Modi is a 79 year old male who is a previous smoker with diabetes type II, peripheral arterial disease, hypothyroidism, hypertension and dyslipidemia. 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 We are consulted to assess his lenin-operative cardiovascular risk. Patient is almost wheelchair bound. He does not perform any meaningful activity. He strongly denies any cardiac symptoms including chest pain, dyspnea, palpitations, orthopnea, PND, LE edema, lightheadedness or syncope. PAST MEDICAL HISTORY Diagnosis Date - DM (diabetes mellitus) (HCC) - Dyslipidemia - HTN (hypertension) - Hypothyroidism History reviewed. No pertinent surgical history. SOCIAL HISTORY Social History Tobacco Use - Smoking status: Not on file Substance Use Topics - Alcohol use: Not on file - Drug use: Not on file +Previous smoking No family history on file. ALLERGIES: ALLERGIES No Known Allergies MEDICATIONS: atorvastatin (LIPITOR) 40 mg tablet Take 40 mg by mouth once daily. levothyroxine (SYNTHROID) 25 mcg tablet Take 25 mcg by mouth once daily. lisinopril (ZESTRIL, PRINIVIL) 10 mg tablet Take 10 mg by mouth once daily. pioglitazone (ACTOS) 30 mg tablet Take 30 mg by mouth once daily. metFORMIN (GLUCOPHAGE) 1,000 mg tablet Take 1,000 mg by mouth twice daily. glimepiride (AMARYL) 4 mg tablet Take 4 mg by mouth twice daily. REVIEW OF SYSTEMS: GENERAL: Negative for:Weight loss and Weight gain HEENT: Negative for:Nosebleeds RESPIRATORY: No shortness of breath GASTROINTESTINAL: Negative for:Blood in stool MUSCULOSKELETAL: Negtive for: Muscle or joint pain, stiffness, Joint swelling SKIN: No rash HEMATOLOGICAL/LYMPHATI C: Negative for: Easy bruising and Easy bleeding CARDIOVASCULAR: As stated in HPI. 10 system review negative except as stated in HPI PHYSICAL EXAMINATION: BP 142/54 Pulse 75 Temp (Src) 98.2 (Oral) Resp 18 Ht 5' 10" (1.78m) Wt 196 lb 13.9 oz (89.3kg) SpO2 96% BMI 28.25 kg/(m2). O2 Therapy: Room Air General: Well appearing, in no acute distress Psych: Normal Affect Eyes: No subconjunctival hemorrhage Skin: Pallor of right LE Oropharynx: Mucous membranes normal Neck: No jugular venous distention, no carotid bruits. Lymph: No cervical lymphadenopathy Lungs: Clear to auscultation bilaterally, no wheezing or rhonchi. Heart: RRR, S1, S2 normal, no murmur Extremities: Right above the ankle amputation. Decreased capillary refill right leg. No peripheral edema Neuro: Grossly nonfocal LABS: Past 72 Hour Labs: Recent Labs 08/26/19 0236 WBC 10.21* RBC 3.67* HB 10.5* HCT 32.3* MCV 88.0 MCH 28.6 MCHC 32.5 PLT 474* MPV 9.5 GLUC 114* BUN 18 CREAT 0.86 NA 137 K 3.8 CHLOR 104 CO2 25 CA 7.8* No results found for: TROPI] Last Lab Drawn: No results found for this basename: TSH,PROBNP,TG,HDL,LDL, CHOL 12 lead EKG 08/21/2019: Sinus tachycardia PVR 08/22/2019: RIGHT SIDE Resting right ankle brachial index: 0.29 Right toe brachial index: 0.00 Abnormal ankle brachial index at rest diagnostic of peripheral artery disease. Right ankle: Severe disease at rest. Right iliofemoral disease. Right superficial femoral disease may also be present. Right distal superficial femoral and/or popliteal disease. Right infrapopliteal disease. Right small vessel disease. LEFT SIDE Resting left ankle brachial index: 1.91 Left toe brachial index: 0.00 Abnormal ankle brachial index at rest diagnostic of peripheral artery disease. 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 Calcific disease at the calf and ankle levels is also noted. Left ankle: Mild disease at rest. Left iliofemoral disease is likely minimal given waveforms and thigh index of 0.94. Left superficial femoral disease. Left distal superficial femoral and/or popliteal disease. Left infrapopliteal disease. Left small vessel disease. 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 He is planned to undergo further arterial intervention(s). - Likely has CAD - Blood pressure uncontrolled. - Poor functional status - Continue atorvastatin and lisinopril. - Increase metoprolol to 50 mg daily - Add aspirin 81 mg daily - Will need an echocardiogram and pharmacological perfusion prior to elective surgery - If emergent, proceed with surgery understanding elevated risk. - I explained to Mr. Modi his risk of elevated lenin-operative cardiovascular events. He understood these risks. SIGNATURE: Gold Montgomery MD PATIENT NAME: Elizabeth Modi DATE: August 27, 2019 TIME: 3:27 PM PAGER/CONTACT #: [phone] [facility] CONSULT PROGon 08-27-2019 CONSULT PROG HNO ID: [id number] Author: Doris Eden Service: Endocrinology Author Type: Physician Type: Consult Progress Note Filed: 08/27/2019 8:02 AM Note Text: ENDOCRINOLOGY CONSULT PROGRESS NOTE SERVICE DATE: 08/27/2019 SERVICE TIME: 7:50 AM Subjective INTERVAL HPI: Pt followed for diabetes mellitus type 2 with complications. 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 No pian, no SOB, no nausea. Eating well. Not getting out of bed yet. PT following. DIET NPO Recent Labs 08/27/19 0720 08/26/19201408/26/19 1650 08/26/19 0236 GLUC -- -- -- -- 114* GLUCOSEMETER 108* 109* 90 < > -- < > = values in this interval not displayed. Current Facility-Administered Medications Medication Dose Route Frequency - heparin 5,000 Units injection 5,000 Units SUBCUTANEOUS q 12 H - ondansetron 4 mg tab(s) (ZOFRAN) 4 mg ORAL q 6 H PRN Or - ondansetron (PF) 4 mg injection (ZOFRAN) 4 mg INTRAVENOUS q 6 H PRN - polyethylene glycol 3350 17 g packet (MIRALAX, GLYCOLAX) 17 g ORAL DAILY PRN - docusate sodium 100 mg cap(s) (COLACE) 100 mg ORAL BID PRN - magnesium hydroxide 400 mg/5 mL 30 mL (MOM) 30 mL ORAL DAILY PRN - bisacodyl 10 mg suppository (DULCOLAX) 10 mg RECTAL DAILY PRN - acetaminophen 650 mg tab(s) (TYLENOL) 650 mg ORAL q 6 H PRN - atorvastatin 40 mg tab(s) (LIPITOR) 40 mg ORAL DAILY - lisinopril 10 mg tab(s) (ZESTRIL, PRINIVIL) 10 mg ORAL DAILY - levothyroxine 25 mcg tab(s) (SYNTHROID) 25 mcg ORAL DAILY - dextrose 40 % 15 g 15 g ORAL PRN Or - glucagon 1 mg injection (GLUCAGEN) 1 mg INTRAMUSCULAR PRN Or - dextrose 50% in water 25 mL syringe 12.5 g INTRAVENOUS PRN - gabapentin 100 mg cap(s) (NEURONTIN) 100 mg ORAL q 8 H - metoprolol succinate ER 25 mg tab(s) (TOPROL XL) 25 mg ORAL DAILY - insulin lispro pen (rapid acting) (HumaLOG KWIKPEN) SUBCUTANEOUS w MEALS - glimepiride 4 mg tab(s) (AMARYL) 4 mg ORAL DAILY WITH BREAKFAST - metFORMIN 1,000 mg tab(s) (GLUCOPHAGE) 1,000 mg ORAL BID w MEALS - insulin glargine 10 Units pen (long acting) (LANTUS SOLOSTAR, BASAGLAR KWIKPEN) 10 Units SUBCUTANEOUS AT BEDTIME - insulin lispro 4 Units pen (rapid acting) (HumaLOG KWIKPEN) 4 Units SUBCUTANEOUS w MEALS - NaCl 0.9% iv infusion 100 mL/hr INTRAVENOUS CONTINUOUS Objective PHYSICAL EXAM: BP 134/50 Pulse 77 Temp (Src) 98.6 (Oral) Resp 18 Ht 5' 10" (1.78m) Wt 196 lb 13.9 oz (89.3kg) SpO2 98% BMI 28.25 kg/(m2). O2 Therapy: Room Air HEENT moist mouth Lungs CTA anteriorly Heart S1 S2 Abdomen soft, flat, NT Extremities: dressing on R leg stump ? DATA: Diagnostic tests reviewed for today's visit: Most recent labs and imaging results. Assessment/Plan Diabetes mellitus type 2, 37 years duration; uncontrolled with complications; HbA1c 9.8. Took insulin in past a few years ago. Started on prog Lantus 10 units qhs on 08/22. Contd home Rx, Metformin 1 gm bid and Glimepiride 4 mg po daily am. Still had hyperglycemia; added prandial humalog 4 units qac tid on 08/23 pm. BS high on 08/24 night; pt did not eat well (30%) and Humalog was held! BS stable now. Watch on current Rx, Lantus/Humalog/oral agents. 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 HTN (hypertension) POA: Yes Assessment AND Plan: on Rx Dyslipidemia POA: Yes Assessment AND Plan: on Rx Hypothyroidism POA: Yes Assessment AND Plan: on LT4 Malnutrition of moderate degree (HCC) POA: Yes Assessment AND Plan: on Boost supplements SIGNATURE: Doris Eden MD PATIENT NAME: Elizabeth Modi DATE: August 27, 2019 TIME: 8:02 AM PAGER: [phone] Normal [facility] IR ABDOMEN ANGIO W/ RUNOFFon 08-27-2019 IR ABDOMEN ANGIO W/ RUNOFF * * *Final Report* * * DATE OF EXAM: Aug 27 2019 11:22AM [facility] 0993 - IR ABDOMEN ANGIO W/ RUNOFF / PROCEDURE REASON: pvd * * * * Physician Interpretation * * * * EXAM TITLE: AORTOGRAM WITH BILATERAL LOWER EXTREMITY RUNOFF DATE:08/27/2019 CLINICAL INDICATION/HISTORY: Patient is a 71-year-old male with gangrene of the right foot. He presents today for aortogram with bilateral lower extremity runoff. TECHNIQUE: Please see the operative report for full details of access. FINDINGS: Access was obtained the patient's left common femoral artery. Aortogram was performed which showed patent aorta and patent bilateral renal arteries. There is diffuse calcifications or bilateral iliac systems. There is significant stenosis and partial occlusion within the right common femoral artery. Calcifications throughout the left common femoral artery. Bilateral profunda femoris I are patent. Bilateral superficial femoral arteries are occluded. On the patient's right there is reconstitution at the below-knee popliteal. On the patient's left there is reconstitution at the left above-knee popliteal. In the right lower extremity there is anterior tibial and peroneal runoff to the level of the ankle. Poor imaging obtained in the patient's left tibial's due to movement. Posterior tibial and peroneal appear patent. 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 Bilateral superficial femoral artery occlusions. Reconstitution at the right below-knee popliteal artery with two-vessel runoff to the foot. Left reconstitution at the above-knee popliteal artery. Assistant Golf Professional: PSCB Transcribe Date/Time: Aug 29 2019 1:09P Dictated by : JOVANNY PARMAR MD This examination was interpreted and the report reviewed and electronically signed by: JOVANNY PARMAR MD on Aug 29 2019 1:12PM EST Normal [facility] NUTRITIONon 08-27-2019 NUTRITION HNO ID: [id number] Author: Carine Singh Service: Nutrition Therapy Author Type: Registered Dietitian Type: Nutrition Filed: 08/27/2019 3:14 PM Note Text: NUTRITION THERAPY PROGRESS NOTE SERVICE DATE: 08/27/2019 SERVICE TIME: 2:20 PM Nutrition Assessment: Recommended Malnutrition Diagnosis: Moderate Protein-Calorie Malnutrition (08/22/19 1436 : Keturah (Dredge Operator Supervisor) Valery) Estimated kilocalorie needs: 0609-2294 Calorie Calculation Method: 30-35 kcals/kg Estimated protein needs (grams): 98-128 Grams protein determined by: 1.3-1.7 g/kg Care Plan: Continue current diet Supplements: Boost Glucose Control Monitor and Evaluation: Meet greater than 75% of estimated needs;Monitor labs, I/Os, vital signs, weight;Monitor bowel function;Monitor fluid/electrolyte balance Discharge Recommendations: Oral Supplements;Diet Diet: CARB control, low sodium Oral Supplements: Boost GC BID --------- Reason for Assessment: Nutrition Follow up Interval History: General surgery following, 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 Wound examined and dressing changed today. Ongoing discussion guarding revascularization with definitive BKA vs AKA Anthropometrics: Height: 177.8 cm (5' 10") Weight: 89.3 kg (196 lb 13.9 oz) Dosing Weight: 75.5 kg (166 lb 7.2 oz) Body mass index is 28.25 kg/m?. Overweight Intake History: Current Intake: Less than 50% estimated energy needs over: 6 days, consuming 25-50% of meals and has been NPO for procedures. Pt states he likes boost supplements Current Diet: DIET HEART HEALTHY SIGNATURE: Carine Singh MS,RD,LD PATIENT NAME: Elizabeth Modi DATE: August 27, 2019 TIME: 2:20 PM PAGER: [phone] Normal [facility] PROGRESSon 08-27-2019 PROGRESS HNO ID: [id number] Author: Tom Prescott DO Service: General Surgery Author Type: Resident Type: Progress Notes Filed: 08/27/2019 1:21 PM Note Text: Attestation signed by Gordo Figueroa at 08/27/2019 4:[address] Parmar to perform arteriogram today to determine revascularization potentials to keep the level of amputation as low as possible. Vascular/Thoracic Surgery Progress Note SERVICE DATE: 08/27/2019 Vascular AND Thoracic Surgery Service Pager: For questions or concerns Mon-Fri 6a-5p please page [phone]. After 5pm and on Weekends and Holidays, please page [phone] if in ICU or [phone] if on RNF. Subjective SUBJECTIVE: Patient seen and examined this morning, NAEON. He denies any leg pain, moving the amputated extremity without difficulty. Denies F/C, CP, SOA. Wound dressing taken down- amputation site examined. Diet: DIET HEART HEALTHY Objective OBJECTIVE: Vitals: Temp (24hrs), Av.7 ?C (98.1 ?F), Min:36.2 ?C (97.2 ?F), Max:37.2 ?C (99 ?F) BP 142/54 Pulse 75 Temp 36.8 ?C (98.2 ?F) (Oral) Resp 18 Ht 177.8 cm (5' 10") Wt 89.3 kg (196 lb 13.9 oz) SpO2 96% BMI 28.25 kg/m? O2 Therapy: Room Air IANDO: Date 08/26/19699 - 08/27/19 0659 08/27/19 07 - 08/28/19 0659 Shift 1630-7686 1209-7463 8250-6141 24 Hour Total 8044-6129 0440-1366 2862-3084 24 Hour Total INTAKE PO 30 30 PO 30 30 IV 550 550 OR Crystalloid intake (mL) 500 500 Volume (mL) (NaCl 0.9% iv infusion) 50 50 Shift Total 580 580 OUTPUT Urine 175 200 375 100 100 Void (ml) 175 200 375 100 100 OR Urine Output 0 0 # of BMs Number of BMs 1 x 1 x 1 x 3 x Blood 10 10 Estimated Blood loss 10 10 Shift Total 175 200 375 110 110 Weight (kg) 77 77 89.3 89.3 89.3 89.3 89.3 89.3 Intake/Output Summary (Last 24 hours) at 08/27/2019 1317 Last data filed at 08/27/2019 1309 Gross per 24 hour Intake 580 ml Output 485 ml Net 95 ml MEDICATIONS Current Facility-Administered Medications Medication Dose Route Frequency - NaCl 0.9% iv infusion 100 mL/hr INTRAVENOUS CONTINUOUS - insulin lispro 4 Units pen (rapid acting) (HumaLOG KWIKPEN) 4 Units SUBCUTANEOUS w MEALS - gabapentin 100 mg cap(s) (NEURONTIN) 100 mg ORAL q 8 H - metoprolol succinate ER 25 mg tab(s) (TOPROL XL) 25 mg ORAL DAILY - insulin lispro pen (rapid acting) (HumaLOG KWIKPEN) SUBCUTANEOUS w MEALS - glimepiride 4 mg tab(s) (AMARYL) 4 mg ORAL DAILY WITH BREAKFAST - metFORMIN 1,000 mg tab(s) (GLUCOPHAGE) 1,000 mg ORAL BID w MEALS - insulin glargine 10 Units pen (long acting) (LANTUS SOLOSTAR, BASAGLAR KWIKPEN) 10 Units SUBCUTANEOUS AT BEDTIME - heparin 5,000 Units injection 5,000 Units SUBCUTANEOUS q 12 H - ondansetron 4 mg tab(s) (ZOFRAN) 4 mg ORAL q 6 H PRN Or - ondansetron (PF) 4 mg injection (ZOFRAN) 4 mg INTRAVENOUS q 6 H PRN - polyethylene glycol 3350 17 g packet (MIRALAX, GLYCOLAX) 17 g ORAL DAILY PRN - docusate sodium 100 mg cap(s) (COLACE) 100 mg ORAL BID PRN - magnesium hydroxide 400 mg/5 mL 30 mL (MOM) 30 mL ORAL DAILY PRN - bisacodyl 10 mg suppository (DULCOLAX) 10 mg RECTAL DAILY PRN - acetaminophen 650 mg tab(s) (TYLENOL) 650 mg ORAL q 6 H PRN - atorvastatin 40 mg tab(s) (LIPITOR) 40 mg ORAL DAILY - lisinopril 10 mg tab(s) (ZESTRIL, PRINIVIL) 10 mg ORAL DAILY - levothyroxine 25 mcg tab(s) (SYNTHROID) 25 mcg ORAL DAILY - dextrose 40 % 15 g 15 g ORAL PRN Or - glucagon 1 mg injection (GLUCAGEN) 1 mg INTRAMUSCULAR PRN Or - dextrose 50% in water 25 mL syringe 12.5 g INTRAVENOUS PRN Labs: Recent Labs 08/26/19 0236 NA 137 K 3.8 CHLOR 104 CO2 25 BUN 18 CREAT 0.86 GLUC 114* ANION 12 CA 7.8* WBC 10.21* HB 10.5* HCT 32.3* PLT 474* Exam: GENERAL: No distress, Alert, pleasant, smiling NEURO: AANDOx3, CN II-XII grossly intact HEENT: normocephalic, atraumatic, EOMI NECK: trachea midline, no JVD LUNGS: Unlabored breathing, O2 Therapy: Room Air CARDIAC: Regular rate, BP as above ABDOMEN: Soft, non-tender, non-distended, no rebound or guarding EXTREMITIES: Wound examined, R stump with xeroform, Kerlix, jero wrap in place with minimal strike-through on dressing- again re-dressed this am, unchanged to prior PSYCH: normal mood and affect, pleasent ASSESSMENT AND PLAN: Active Hospital Problems Diagnosis Date Noted - Malnutrition of moderate degree (HCC) 08/22/2019 - Gangrene of foot (HCC) 08/21/2019 - Diabetes (HCC) 08/21/2019 - HTN (hypertension) 08/21/2019 - Dyslipidemia 08/21/2019 - Hypothyroidism 08/21/2019 Assessment: 79 year old male with PMH thyroid disease, HTN, dyslipidemia, DM, claudication who presents with necrosis of R foot. 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 diet On going discussion guarding revasuclarization with diffinitive BKA vs AKA - Further care per primary Assessment and plan discussed with attending Tom Prescott DO, MBA PGY-1 General Surgery Resident 08/27/2019 1:21 PM Pager below: Vascular AND Thoracic Surgery Service Pager: For questions or concerns Mon-Fri 6a-5p please page [phone]. After 5pm and on Weekends and Holidays, please page [phone] if in ICU or [phone] if on RNF. Normal [facility] PROGRESS HNO ID: [id number] Author: Sue Bianchi Service: Hospital Medicine Author Type: Physician Type: Progress Notes Filed: 08/27/2019 7:27 AM Note Text: DEPARTMENT OF HOSPITAL MEDICINE PROGRESS NOTE SERVICE DATE: 08/27/2019 SERVICE TIME: 7:24 AM Hospital Medicine/Primary Attending: Sue Bianchi, DO NIGHT AND WEEKEND COVERAGE: After 7pm, please call cross cover pager #[phone] Subjective INTERVAL HPI: Patient seen and examined. No acute events overnight. Feels well. No complaint. Has not been out of bed. Denies any pain, nausea, CP or SOB MEDICATIONS: Reviewed Objective PHYSICAL EXAM: BP 134/50 Pulse 77 Temp (Src) 98.6 (Oral) Resp 18 Ht 5' 10" (1.78m) Wt 196 lb 13.9 oz (89.3kg) SpO2 98% BMI 28.25 kg/(m2). O2 Therapy: Room Air Physical Exam Performed Constitutional - Vitals as above, not in acute distress Resp - Clear to auscultate both sides, no wheezes, crackles or rales, no labored breathing CVS- RRR. No murmur, gallop or rub, pulse 2+ GI - NTND, bowel sounds normally heard, no mass palpable MANAGER AUDIO- cranial nerves 2 to 12 grossly intact, no focal motor or sensory deficits noted, speech normal Psych- A ANDO x 3, mood normal Skin- R lower extremity dressing intact, wound care notes and images reviewed Lines, Drains, and Airways Line Peripheral 08/27/19 0116 Short Right Forearm 20 Gauge less than 1 day Reviewed lines and needs to be continued: REASONS: Intravenous antibiotics DATA: Diagnostic tests reviewed for today's visit: Most recent labs and imaging results. Assessment/Plan #RLE wound infection with wet gangrene and necrosis POD #4 s/p amputation-plan now is for arteriogram and then possibly bka v aka pending results, vascular and orthopedics following along, abx have been stopped now, started on gabapentin for neuropathy #anemia-improved #hx PAD-continue statin, management per vascular #DM 2, uncontrolled-patient had been on insulin in past, unable to afford. He then started pills and a1c has gone from 7 to 9 to 9.8 today, continue SSI, endocrinology following-appreciate recs #hypothyroidism-contin ue synthroid #hypophos-replace and follow #HTN-continue lisinopril #HLD-statin #immobility-PT and OT, patient to be out of bed with meals Medication and Non-Pharmacologic VTE Prophylaxis/Anticoagul ants Anticoagulant AND Antiplatelet Medications (From admission, onward) Start Dose Route Frequency Ordered Stop 08/21/191929 heparin 5,000 Units injection (Medical Risk Categories) 5,000 Units SUBCUTANEOUS EVERY 12 HOURS 08/21/191915 -- 08/21/191914 vte non-pharmacologic prophylaxis - none indicated (de,oh) 08/21/191914 activity - mobilize patient (de,mi) VTE Prophylaxis: VTE prophylaxis appropriate Disposition: Home with [facility] Plan of care discussed with: Provider, RN, Patient SIGNATURE: Sue Bianchi DO PATIENT NAME: Elizabeth Modi DATE: August 27, 2019 TIME:7:24 AM PAGER/CONTACT #: [phone] Normal [facility] THERAPY NTon 08-27-2019 THERAPY NT HNO ID: [id number] Author: Tanja (Pt) Hoda Service: Physical Therapy Author Type: Physical Therapist Type: Therapy (PT/OT/Speech/Resp) Filed: 08/27/2019 9:33 AM Note Text: PHYSICAL THERAPY MISSED VISIT SERVICE DATE: 08/27/2019 SERVICE TIME: 0932 to 09 ROOM: AK-OR Attempted Treatment. Patient not seen due to Test/Procedure(at angiogram). Will follow. SIGNATURE: Tanja Drummond PT PATIENT NAME: Elizabeth Modi DATE: August 27, 2019 TIME: 9:33 AM Normal [facility] THERAPY NT HNO ID: [id number] Author: Maricarmen Ochoar/Vickie Good Service: Occupational Therapy Author Type: Occupational Therapist Type: Therapy (PT/OT/Speech/Resp) Filed: 08/27/2019 9:12 AM Note Text: OCCUPATIONAL THERAPY MISSED VISIT SERVICE DATE: 08/27/2019 SERVICE TIME: 09 to 09 ROOM: AK-OR (S) Attempted Treatment. Patient not seen due to Surgery. Will follow and reassess post op. SIGNATURE: NADIR Hopper/Serene PATIENT NAME: Elizabeth Modi DATE: August 27, 2019 TIME: 9:12 AM Normal [facility] Basic Panelon 08-26-2019 Creatinine [Mass/Vol] 0.86 mg/dL Normal 0.67-1.17 [facility] Comment on above: Result Comment: Use of this assay is not recommended for patients undergoing treatment with phenindione, due to the potential for falsely depressed results. Performed By: #### P 8 #### [facility] [address] [place], [place] [address] Anion gap [Moles/Vol] 12 mmol/L Normal 8-16 [facility] Comment on above: Performed By: #### P 8 #### [facility] [address] [place], [place] [address] CO2 [Moles/Vol] 25 mmol/L Normal 21-32 [facility] Comment on above: Performed By: #### P 8 #### [facility] [address] [place], [place] [address] Urea nitrogen [Mass/Vol] 18 mg/dL Normal 7-18 [facility] Comment on above: Performed By: #### P 8 #### [facility] [address] [place], [place] [address] Calcium [Mass/Vol] 7.8 mg/dL Low 8.5-10.1 [facility] Comment on above: Performed By: #### P 8 #### [facility] [address] [place], [place] [address] Glucose [Mass/Vol] 114 mg/dL High 70-99 [facility] Comment on above: Performed By: #### P 8 #### [facility] [address] [place], [place] [address] Chloride [Moles/Vol] 104 mmol/L Normal 98-107 [facility] Comment on above: Performed By: #### P 8 #### [facility] [address] [place], [place] [address] Potassium [Moles/Vol] 3.8 mmol/L Normal 3.5-5.1 [facility] Comment on above: Performed By: #### P 8 #### [facility] [address] [place], [place] [address] Sodium [Moles/Vol] 137 mmol/L Normal 136-145 [facility] Comment on above: Performed By: #### P 8 #### [facility] [address] [place], [place] [address] CASE MANAGEMon 08-26-2019 CASE MANAGEM HNO ID: [id number] Author: Christina Crandall Sec Service: Care Management Author Type: ? Type: Care Mgt Progress Note Filed: 08/26/2019 10:50 AM Note Text: CARE MANAGEMENT PROGRESS NOTE SERVICE DATE: 08/26/2019 SERVICE TIME: 1000 LOS: 5 days IMM Follow Up Copy Given: Yes Copy given to:: Patient Method: In Person SIGNATURE: Christina Perez PATIENT NAME: Elizabeth Modi DATE: August 26, 2019 TIME: 10:50 AM PAGER/CONTACT #: [phone] [facility] CASE MANAGEM HNO ID: [id number] Author: Tami SantiagoRn) KAVIN Patricio Service: Care Management Author Type: Registered Nurse Type: Care Mgt Progress Note Filed: 08/26/2019 10:17 AM Note Text: CARE MANAGEMENT PROGRESS NOTE SERVICE DATE: 08/26/2019 SERVICE TIME: 10:15 AM LOS: 5 days Chart reviewed. Plan now is for arteriogram likely next week and then possibly bka v aka pending results. Vascular and Ortho follow. Referral to [facility] for AR. Will follow clinical progress. SIGNATURE: Tami Patricio RN PATIENT NAME: Elizabeth Modi DATE: August 26, 2019 TIME: 10:15 AM PAGER/CONTACT #: [phone] [facility] CONSULT PROGon 08-26-2019 CONSULT PROG HNO ID: [id number] Author: Doris Eden Service: Endocrinology Author Type: Physician Type: Consult Progress Note Filed: 08/26/2019 8:09 AM Note Text: ENDOCRINOLOGY CONSULT PROGRESS NOTE SERVICE DATE: 08/26/2019 SERVICE TIME: 8:00 AM Subjective INTERVAL HPI: Pt followed for diabetes mellitus type 2 with complications. 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 No pian, no SOB, no nausea. Eating well. Not getting out of bed yet. PT following. DIET CARBOHYDRATE CONTROLLED Recent Labs 08/26/19 0236 08/25/19 2217 08/25/19 1649 08/25/19 1201 08/24/19 0630 GLUC 114* -- -- -- -- 107* GLUCOSEMETER -- 197* 97 70 < > -- < > = values in this interval not displayed. Current Facility-Administered Medications Medication Dose Route Frequency - heparin 5,000 Units injection 5,000 Units SUBCUTANEOUS q 12 H - ondansetron 4 mg tab(s) (ZOFRAN) 4 mg ORAL q 6 H PRN Or - ondansetron (PF) 4 mg injection (ZOFRAN) 4 mg INTRAVENOUS q 6 H PRN - polyethylene glycol 3350 17 g packet (MIRALAX, GLYCOLAX) 17 g ORAL DAILY PRN - docusate sodium 100 mg cap(s) (COLACE) 100 mg ORAL BID PRN - magnesium hydroxide 400 mg/5 mL 30 mL (MOM) 30 mL ORAL DAILY PRN - bisacodyl 10 mg suppository (DULCOLAX) 10 mg RECTAL DAILY PRN - acetaminophen 650 mg tab(s) (TYLENOL) 650 mg ORAL q 6 H PRN - atorvastatin 40 mg tab(s) (LIPITOR) 40 mg ORAL DAILY - lisinopril 10 mg tab(s) (ZESTRIL, PRINIVIL) 10 mg ORAL DAILY - levothyroxine 25 mcg tab(s) (SYNTHROID) 25 mcg ORAL DAILY - dextrose 40 % 15 g 15 g ORAL PRN Or - glucagon 1 mg injection (GLUCAGEN) 1 mg INTRAMUSCULAR PRN Or - dextrose 50% in water 25 mL syringe 12.5 g INTRAVENOUS PRN - gabapentin 100 mg cap(s) (NEURONTIN) 100 mg ORAL q 8 H - metoprolol succinate ER 25 mg tab(s) (TOPROL XL) 25 mg ORAL DAILY - insulin lispro pen (rapid acting) (HumaLOG KWIKPEN) SUBCUTANEOUS w MEALS - glimepiride 4 mg tab(s) (AMARYL) 4 mg ORAL DAILY WITH BREAKFAST - metFORMIN 1,000 mg tab(s) (GLUCOPHAGE) 1,000 mg ORAL BID w MEALS - insulin glargine 10 Units pen (long acting) (LANTUS SOLOSTAR, BASAGLAR KWIKPEN) 10 Units SUBCUTANEOUS AT BEDTIME - phosphorus 250 mg tab(s) (K PHOS NEUTRAL) 250 mg ORAL PC and HS - insulin lispro 4 Units pen (rapid acting) (HumaLOG KWIKPEN) 4 Units SUBCUTANEOUS w MEALS Objective PHYSICAL EXAM: BP 100/60 Pulse 89 Temp (Src) 97.9 (Oral) Resp 18 Ht 5' 10" (1.78m) Wt 169 lb 12.1 oz (77.0kg) SpO2 94% BMI 24.36 kg/(m2). O2 Therapy: Room Air HEENT moist mouth Lungs CTA anteriorly Heart S1 S2 Abdomen soft, flat, NT Extremities: dressing on R leg stump ? DATA: Diagnostic tests reviewed for today's visit: Most recent labs and imaging results. Assessment/Plan Diabetes mellitus type 2, 37 years duration; uncontrolled with complications; HbA1c 9.8. Took insulin in past a few years ago. Started on prog Lantus 10 units qhs on 08/22. Contd home Rx, Metformin 1 gm bid and Glimepiride 4 mg po daily am. Still had hyperglycemia; added prandial humalog 4 units qac tid on 08/23 pm. BS high last night; pt did not eat well (30%) and Humalog was held! Watch on current Rx. 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 HTN (hypertension) POA: Yes Assessment AND Plan: on Rx Dyslipidemia POA: Yes Assessment AND Plan: on Rx Hypothyroidism POA: Yes Assessment AND Plan: on LT4 Malnutrition of moderate degree (HCC) POA: Yes Assessment AND Plan: on Boost supplements SIGNATURE: Doris Eden MD PATIENT NAME: Elizabeth Modi DATE: August 26, 2019 TIME: 8:09 AM PAGER: [phone] Normal [facility] Hemogram/Diffon 08-26-2019 Abs Immature Grans 0.20 thou/cmm High 0.00-0.05 [facility] Comment on above: Performed By: #### M AG #### [place] [address] Abs Neut (ANC) 6.48 thou/cmm High 1.78-5.38 [facility] Comment on above: Performed By: #### M AG #### [place] [address] Abs. Baso 0.04 thou/cmm Normal 0.01-0.08 [facility] Comment on above: Performed By: #### M AG #### [place] [address] Abs. [place] 0.93 thou/cmm High 0.30-0.82 [facility] Comment on above: Performed By: #### M AG #### [facility] [address] [place], [place] [address] Basophils/100 WBC (Bld) 0.4 % Normal [facility] Comment on above: Performed By: #### M AG #### [facility] [address] [place], [place] [address] Eosinophils (Bld) [#/Vol] 0.21 thou/cmm Normal 0.04-0. 54 [facility] Comment on above: Performed By: #### M AG #### [facility] [address] [place], [place] [address] Eosinophils/100 WBC (Bld) 2.1 % Normal [facility] Comment on above: Performed By: #### M AG #### [facility] [address] [place], [place] [address] Erythrocyte distribution width (RBC) [Ratio] 13.3 % Normal 11.6-14.4 [facility] Comment on above: Performed By: #### M AG #### [facility] [address] [place], [place] [address] Hematocrit (Bld) [Volume fraction] 32.3 % Low 40.1-51.0 [facility] Comment on above: Performed By: #### M AG #### [facility] [address] [place], [place] [address] Hemoglobin (Bld) [Mass/Vol] 10.5 g/dL Low 13.7-17.5 [facility] Comment on above: Performed By: #### M AG #### [facility] [address] [place], [place] [address] Immature Grans 2.00 % Normal [facility] Comment on above: Performed By: #### M AG #### [facility] [address] [place], [place] [address] Lymphocytes (Bld) [#/Vol] 2.34 thou/cmm Normal 0.84-2. 85 [facility] Comment on above: Performed By: #### M AG #### [facility] [address] [place], [place] [address] Lymphocytes/100 WBC (Bld) 22.9 % Normal [facility] Comment on above: Performed By: #### M AG #### [facility] [address] [place] [address] MCH (RBC) [Entitic mass] 28.6 pg Normal 25.7-32.2 [facility] Comment on above: Performed By: #### M AG #### [facility] [address] [place] [address] MCHC (RBC) [Mass/Vol] 32.5 % Normal 32.3-36.5 [facility] Comment on above: Performed By: #### M AG #### [place] [address] MCV (RBC) [Entitic vol] 88.0 fL Normal 83.2-95.6 [facility] Comment on above: Performed By: #### M AG #### [place] [address] Monocytes/100 WBC (Bld) 9.1 % Normal [facility] Comment on above: Performed By: #### M AG #### [facility] [address] [place] [address] Platelet mean volume (Bld) [Entitic vol] 9.5 fL Normal 8.7-12.0 [facility] Comment on above: Performed By: #### M AG #### [place] [address] Platelets (Bld) [#/Vol] 474 thou/cmm High 141-365 [facility] Comment on above: Performed By: #### M AG #### [facility] [address] [place] [address] RBC (Bld) [#/Vol] 3.67 mil/cmm Low 4.63-6.08 [facility] Comment on above: Performed By: #### M AG #### [place] [address] RDW SD 43.1 fl Normal 36.1-45.8 [facility] Comment on above: Performed By: #### M AG #### [address] [place], [place] [address] Seg Neutrophil 63.5 % Normal [facility] Comment on above: Performed By: #### M AG #### [facility] [address] [place], [place] [address] WBC (Bld) [#/Vol] 10.21 thou/cmm High 4.23-9.07 [facility] Comment on above: Performed By: #### M AG #### [facility] [address] [place], [place] [address] PROGRESSon 08-26-2019 PROGRESS HNO ID: [id number] Author: Sue Bianchi Service: Hospital Medicine Author Type: Physician Type: Progress Notes Filed: 08/26/2019 1:35 PM Note Text: DEPARTMENT OF HOSPITAL MEDICINE PROGRESS NOTE SERVICE DATE: 08/26/2019 SERVICE TIME: 1:34 PM Hospital Medicine/Primary Attending: Sue Bianchi, DO NIGHT AND WEEKEND COVERAGE: After 7pm, please call cross cover pager #[phone] Subjective INTERVAL HPI: Patient seen and examined. No acute events overnight. Feels well. No complaint. Tried to get out of bed this am MEDICATIONS: Reviewed Objective PHYSICAL EXAM: BP 124/66 Pulse 87 Temp (Src) 98 (Oral) Resp 18 Ht 5' 10" (1.78m) Wt 169 lb 12.1 oz (77.0kg) SpO2 96% BMI 24.36 kg/(m2). O2 Therapy: Room Air Physical Exam Performed Constitutional - Vitals as above, not in acute distress Resp - Clear to auscultate both sides, no wheezes, crackles or rales, no labored breathing CVS- RRR. No murmur, gallop or rub, pulse 2+ GI - NTND, bowel sounds normally heard, no mass palpable MANAGER AUDIO- cranial nerves 2 to 12 grossly intact, no focal motor or sensory deficits noted, speech normal Psych- A ANDO x 3, mood normal Skin- R lower extremity dressing intact, wound care notes and images reviewed Lines, Drains, and Airways Line Peripheral 08/21/19 7094 Assessment Left Antecubital 20 Gauge 4 days Reviewed lines and needs to be continued: REASONS: Intravenous antibiotics DATA: Diagnostic tests reviewed for today's visit: Most recent labs and imaging results. Assessment/Plan #RLE wound infection with wet gangrene and necrosis POD #3 s/p amputation-plan now is for arteriogram likely today v tomorrow and then possibly bka v aka pending results, vascular and orthopedics following along, abx have been stopped now #anemia-improved #hx PAD-continue statin #DM 2, uncontrolled-patient had been on insulin in past, unable to afford. He then started pills and a1c has gone from 7 to 9 to 9.8 today, continue SSI, check a1c, hold po medication for now, endocrinology consult given likely needs insulin but with issues affording, appreciate input #hypothyroidism-contin ue synthroid #hypophos-replace and follow #HTN-continue lisinopril #HLD-statin Medication and Non-Pharmacologic VTE Prophylaxis/Anticoagul ants Anticoagulant AND Antiplatelet Medications (From admission, onward) Start Dose Route Frequency Ordered Stop 08/21/191929 heparin 5,000 Units injection (Medical Risk Categories) 5,000 Units SUBCUTANEOUS EVERY 12 HOURS 08/21/191915 -- 08/21/191914 vte non-pharmacologic prophylaxis - none indicated (de,mi) 08/21/191914 activity - mobilize patient ([place]) VTE Prophylaxis: VTE prophylaxis appropriate Disposition: Home with [facility] Plan of care discussed with: Provider, RN, Patient SIGNATURE: Sue Bianchi DO PATIENT NAME: Elizabeth Modi DATE: August 26, 2019 TIME:1:34 PM PAGER/CONTACT #: [phone] [facility] PROGRESS HNO ID: [id number] Author: Tom Prescott DO Service: General Surgery Author Type: Resident Type: Progress Notes Filed: 08/27/2019 9:52 AM Note Text: Attestation signed by Gordo Figueroa at 08/27/2019 11:16 AM I personally saw and examined the patient on 08/26/2019. I reviewed the resident's note. I agree with the resident's assessment and plan unless otherwise noted. I discussed this situation with the patient and reminded him that our plan at the time of the initial guillotine amputation was to do a arteriogram on him and this is planned for tomorrow on 08/27/[address] Parmar. Vascular/Thoracic Surgery Progress Note SERVICE DATE: 08/26/2019 Vascular AND Thoracic Surgery Service Pager: For questions or concerns Mon-Fri 6a-5p please page [phone]. After 5pm and on Weekends and Holidays, please page [phone] if in ICU or [phone] if on RNF. Subjective SUBJECTIVE: Patient seen and examined this morning, NAEON. He denies any leg pain. Denies F/C, CP, SOA. Moving the extremity without difficulty. Diet: DIET CARBOHYDRATE CONTROLLED Objective OBJECTIVE: Vitals: Temp (24hrs), Av.7 ?C (98 ?F), Min:36.5 ?C (97.7 ?F), Max:36.8 ?C (98.2 ?F) BP 100/60 Pulse 89 Temp 36.6 ?C (97.9 ?F) (Oral) Resp 18 Ht 177.8 cm (5' 10") Wt 77 kg (169 lb 12.1 oz) SpO2 94% BMI 24.36 kg/m? O2 Therapy: Room Air IANDO: No intake or output data in the 24 hours ending 08/26/19 0637 MEDICATIONS Current Facility-Administered Medications Medication Dose Route Frequency - phosphorus 250 mg tab(s) (K PHOS NEUTRAL) 250 mg ORAL PC and HS - insulin lispro 4 Units pen (rapid acting) (HumaLOG KWIKPEN) 4 Units SUBCUTANEOUS w MEALS - gabapentin 100 mg cap(s) (NEURONTIN) 100 mg ORAL q 8 H - metoprolol succinate ER 25 mg tab(s) (TOPROL XL) 25 mg ORAL DAILY - insulin lispro pen (rapid acting) (HumaLOG KWIKPEN) SUBCUTANEOUS w MEALS - glimepiride 4 mg tab(s) (AMARYL) 4 mg ORAL DAILY WITH BREAKFAST - metFORMIN 1,000 mg tab(s) (GLUCOPHAGE) 1,000 mg ORAL BID w MEALS - insulin glargine 10 Units pen (long acting) (LANTUS SOLOSTAR, BASAGLAR KWIKPEN) 10 Units SUBCUTANEOUS AT BEDTIME - heparin 5,000 Units injection 5,000 Units SUBCUTANEOUS q 12 H - ondansetron 4 mg tab(s) (ZOFRAN) 4 mg ORAL q 6 H PRN Or - ondansetron (PF) 4 mg injection (ZOFRAN) 4 mg INTRAVENOUS q 6 H PRN - polyethylene glycol 3350 17 g packet (MIRALAX, GLYCOLAX) 17 g ORAL DAILY PRN - docusate sodium 100 mg cap(s) (COLACE) 100 mg ORAL BID PRN - magnesium hydroxide 400 mg/5 mL 30 mL (MOM) 30 mL ORAL DAILY PRN - bisacodyl 10 mg suppository (DULCOLAX) 10 mg RECTAL DAILY PRN - acetaminophen 650 mg tab(s) (TYLENOL) 650 mg ORAL q 6 H PRN - atorvastatin 40 mg tab(s) (LIPITOR) 40 mg ORAL DAILY - lisinopril 10 mg tab(s) (ZESTRIL, PRINIVIL) 10 mg ORAL DAILY - levothyroxine 25 mcg tab(s) (SYNTHROID) 25 mcg ORAL DAILY - dextrose 40 % 15 g 15 g ORAL PRN Or - glucagon 1 mg injection (GLUCAGEN) 1 mg INTRAMUSCULAR PRN Or - dextrose 50% in water 25 mL syringe 12.5 g INTRAVENOUS PRN Labs: Recent Labs 08/26/19 0236 08/24/19 0630 NA 137 131* K 3.8 4.4 CHLOR 104 105 CO2 25 20* BUN 18 12 CREAT 0.86 0.76 GLUC 114* 107* ANION 12 10 CA 7.8* 7.9* MG -- 2.4 P -- 2.3* WBC 10.21* 9.20* HB 10.5* 11.7* HCT 32.3* 36.9* PLT 474* 428* Exam: GENERAL: No distress, Alert, pleasant, smiling NEURO: AANDOx3, CN II-XII grossly intact HEENT: normocephalic, atraumatic, EOMI NECK: trachea midline, no JVD LUNGS: Unlabored breathing, O2 Therapy: Room Air CARDIAC: Regular rate, BP as above ABDOMEN: Soft, non-tender, non-distended, no rebound or guarding EXTREMITIES: Wound examined, R stump with xeroform, Kerlix, jero wrap in place with minimal strike-through on dressing- re-dressed this am. PSYCH: normal mood and affect, [pleasent ASSESSMENT AND PLAN: Active Hospital Problems Diagnosis Date Noted - Malnutrition of moderate degree (HCC) 08/22/2019 - Gangrene of foot (HCC) 08/21/2019 - Diabetes (HCC) 08/21/2019 - HTN (hypertension) 08/21/2019 - Dyslipidemia 08/21/2019 - Hypothyroidism 08/21/2019 Assessment: 79 year old male with PMH thyroid disease, HTN, dyslipidemia, DM, claudication who presents with necrosis of R foot. 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 - further care per primary Assessment and plan discussed with attending: Dr. Carlos Prescott DO, URSZULA PGY-1 General Surgery Resident 08/26/2019 6:42 AM Pager below: Vascular AND Thoracic Surgery Service Pager: For questions or concerns Mon-Fri 6a-5p please page [phone]. After 5pm and on Weekends and Holidays, please page [phone] if in ICU or [phone] if on RNF. Normal [facility] THERAPY NTon 08-26-2019 THERAPY NT HNO ID: [id number] Author: Maricarmen Ochoar/Vickie Good Service: Occupational Therapy Author Type: Occupational Therapist Type: Therapy (PT/OT/Speech/Resp) Filed: 08/26/2019 11:15 AM Note Text: Occupational Therapy Treatment SERVICE DATE: 08/26/2019 SERVICE TIME: 919 to 944 ROOM: [place] [id number] Recommended Discharge Disposition: Acute Rehab Justification For Post Acute Needs: Anticipate patient will tolerate 3 hours of daily therapy at the time of admission to post-acute setting;Motivated;Will ing to participate;Living the community premorbidly;Cognition intact OT Recommendations to Nursing: Not appropriate for out of bed activity at this time;Encourage patient participation with in-bed ADL?s;Edge of bed ADL?s;With assist of 1 person OT 6 Clicks Score: 15 Precautions/Activity Restrictions: Weight Bearing Restrictions;Fall Risk;Lines/Tubes/Drain s Isolation Type: None Extremity With Weight Bearing Restricted: Right Lower Extremity Right Lower Extremity Weight Bearing Status: NWB ASSESSMENT: Patient progressing towards occupational therapy goals as expected. Patient continues to require maximal assistance x 2 for sit to stand transfer, unable to maintain standing position at this time. Plan of care remains for patient to transfer to Acute Rehab to maximize functional mobility during transfers and independence with functional activities. Patient Disposition at Start of Session: Supine in Bed;Call Singh in Reach Patient Disposition at End of Session: Supine in Bed;Call Singh in Reach Tolerated Full Session Occupational Therapy Problem List: Education Deficit;Safety Deficits;Impaired Self Care;Decreased Activity Tolerance;Decreased Strength;Functional Mobility Impairment;Balance Impaired Patient /Caregiver Goals: Go To Rehab;Care For Self Goals for Plan of Care: Grooming with: Set Up Upper Body Dressing with: Set Up Lower Body Dressing with: Contact Guard Assistance Toilet Hygiene with: Minimal Assistance Chair Transfer with: Minimal Assistance Toilet Transfer with: Minimal Assistance(BSC) Additional Goal 1: pt will adhere to NWB status for RLE 100% of the time Additional Goal 2: pt will maximize upper body strength to increase transfers to min assist Transfer: stand pivot transfer wtih min assist Progress Toward Goals: Progressing as expected Rehab Potential: Good PLAN: Treatment Frequency (times per week): 5(1-5) Current admission Treatment Interventions: Education;Self Care / Home Management;Energy Conservation Training;Balance Training;Functional Mobility Training;Strengthening Plan of Care developed with: Patient TREATMENT INTERVENTIONS: Therapy Diagnosis: Reduced mobility-other;Decreas ed activities of daily living (ADL);General symptoms and signs-other Interventions Provided: Self Long-Term Management (68003);Therapeutic Exercise (90517) Therapeutic Exercise (62451) Treatment Minutes: 10 1 unit Skilled Intervention(s): Instruction in therapeutic exercises for upper extremity strengthening for transfers and use of wheeled walker. Allowed time for patient to demonstrate exercises. Provided handout for patient re: supine band UE exercises. Instructed patient in completing exercises 3x a day for 10 repetitions each. Verbal and tactile cuing provided for proper position of shoulders and arms for exercises. Instructed patient with step by step positioning of TheraBand for exercises. Supervision was provided while patient completed exercises. Exercises included flexion/extension of shoulder, flexion/extension of elbow, and shoulder abduction. Encouraged patient to take rest breaks as needed between exercises. Education in posture and positioning of shoulders during exercises was provided due to patient shrugging shoulders during activity. Self Long-Term Management (45789) Treatment Minutes: 15 1 unit Skilled Intervention(s): Instructed in post-op instructions during ADLs to ensure NWB precautions were adhered on right lower extremity. Provided step by step instructions during bed mobility and provided assistance due to difficulty sitting upright. Patient required HOB elevation to complete sitting transfer. Instructed patient on sit to stand transfer; provided education on proper use of wheeled walker and placement of hands during transfer. Provided maximal assistance x 2 due to patient unable to stand with left lower extremity. Attempted transfer x 2 trials. Encouraged patient to participate on ADLs at edge of bed to maximize activity tolerance. Set up was provided for face hygiene using tray table. Supervised patient during completion of ADL to maximize safety. Assisted patient in return to supine position in bed. Guided patient through step by step instructions for proper bed transfer; assisted in adherence of NWB precautions by providing support to right lower extremity. Ensured patient comfort and call light within reach before leaving room. Total Timed Code Treatment Minutes: 25 Total Treatment Time (minutes): 25 SUBJECTIVE: Current Hospital Course: Chart reviewed and no significant medical updates relevant to therapy were noted Reason for Occupational Therapy Consult: PSYCHOPAEDIC NURSE Relevant Past Medical History: thyroid, HTN, DM, claudication Patient Report: Patient IDx2. Pt reported no pain and was agreeable to therapy. 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 Entry To Home: Stairs;With Rail Number Of Stairs Into Home: 4 Number Of Stairs To Bed/Bath: 0 Tub/Shower Type: walk in shower Laundry: main level Equipment Owned: Rollator;Wheelchair Prior Functional Level: Required Assistance;Within Functional Limits Assistance Required With: Cleaning Prior Functional Level Comments: pt independent without devices and completed ADLs OBJECTIVE: Cognition/Communicatio n Deficits Responsiveness: Alert;Awake Follows Commands: 2-step Commands Executive Function Deficits: Safety Awareness;Insight to Deficits Insight to Deficits: Minimal impairment Safety Awareness Deficit: Moderate impairment CURRENT FUNCTIONAL STATUS: Current Activities of Daily Living Assist Level Feeding Set Up Grooming Set Up(chair level) Bathing Upper Body Minimal Assistance Bathing Lower Body Maximal Assistance Dressing Upper Body Minimal Assistance Dressing Lower Body Maximal Assistance Toileting Maximal Assistance Functional Mobility Assist Level Rolling Supine to Sit Minimal Assistance(HOB fully elevated) Sit to Supine Minimal Assistance Scooting Sit to Stand Maximal Assistance(x 2) Stand to Sit Maximal Assistance(x 2) Bed to Chair Toilet/Commode Functional Mobility Balance: Dynamic Sitting;Dynamic Standing Dynamic Sitting Balance: Fair Patient accepts minimal challenge, able to maintain balance while turning head/trunk Static Standing Balance: Poor Patient requires handhold support and moderate to maximal assistance to maintain position Please see discipline specific clinical documentation flowsheet for complete details for this therapy evaluation/treatment. SIGNATURE: Judson Blackwood/LAKE PATIENT NAME: Elizabeth Modi DATE: August 26, 2019 TIME: 9:56 AM I reviewed and agree with the documentation corresponding to this therapy visit. SIGNATURE: NADIR Hopper/Serene DATE: August 26, 2019 TIME: 11:15 AM Evaluation and/or treatment directly supervised by licensed Occupational Therapist. [facility] CONSULT PROGon 08-25-2019 CONSULT PROG HNO ID: [id number] Author: Doris Eden Service: Endocrinology Author Type: Physician Type: Consult Progress Note Filed: 08/25/2019 9:29 AM Note Text: ENDOCRINOLOGY CONSULT PROGRESS NOTE SERVICE DATE: 08/25/2019 SERVICE TIME: 9:10 AM Subjective INTERVAL HPI: Pt followed for diabetes mellitus type 2 with complications. 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 No pian, no SOB, no nausea. Eating well. Not getting out of bed yet. PT following. DIET CARBOHYDRATE CONTROLLED Recent Labs 08/24/19 2143 08/24/19 1709 08/24/19 1143 08/24/19 0630 08/23/19 0345 GLUC -- -- -- -- 107* -- 96 GLUCOSEMETER 188* 212* 231* < > -- < > -- < > = values in this interval not displayed. Current Facility-Administered Medications Medication Dose Route Frequency - heparin 5,000 Units injection 5,000 Units SUBCUTANEOUS q 12 H - ondansetron 4 mg tab(s) (ZOFRAN) 4 mg ORAL q 6 H PRN Or - ondansetron (PF) 4 mg injection (ZOFRAN) 4 mg INTRAVENOUS q 6 H PRN - polyethylene glycol 3350 17 g packet (MIRALAX, GLYCOLAX) 17 g ORAL DAILY PRN - docusate sodium 100 mg cap(s) (COLACE) 100 mg ORAL BID PRN - magnesium hydroxide 400 mg/5 mL 30 mL (MOM) 30 mL ORAL DAILY PRN - bisacodyl 10 mg suppository (DULCOLAX) 10 mg RECTAL DAILY PRN - acetaminophen 650 mg tab(s) (TYLENOL) 650 mg ORAL q 6 H PRN - atorvastatin 40 mg tab(s) (LIPITOR) 40 mg ORAL DAILY - lisinopril 10 mg tab(s) (ZESTRIL, PRINIVIL) 10 mg ORAL DAILY - levothyroxine 25 mcg tab(s) (SYNTHROID) 25 mcg ORAL DAILY - dextrose 40 % 15 g 15 g ORAL PRN Or - glucagon 1 mg injection (GLUCAGEN) 1 mg INTRAMUSCULAR PRN Or - dextrose 50% in water 25 mL syringe 12.5 g INTRAVENOUS PRN - gabapentin 100 mg cap(s) (NEURONTIN) 100 mg ORAL q 8 H - metoprolol succinate ER 25 mg tab(s) (TOPROL XL) 25 mg ORAL DAILY - insulin lispro pen (rapid acting) (HumaLOG KWIKPEN) SUBCUTANEOUS w MEALS - glimepiride 4 mg tab(s) (AMARYL) 4 mg ORAL DAILY WITH BREAKFAST - metFORMIN 1,000 mg tab(s) (GLUCOPHAGE) 1,000 mg ORAL BID w MEALS - insulin glargine 10 Units pen (long acting) (LANTUS SOLOSTAR, BASAGLAR KWIKPEN) 10 Units SUBCUTANEOUS AT BEDTIME - phosphorus 250 mg tab(s) (K PHOS NEUTRAL) 250 mg ORAL PC and HS - insulin lispro 4 Units pen (rapid acting) (HumaLOG KWIKPEN) 4 Units SUBCUTANEOUS w MEALS Objective PHYSICAL EXAM: BP 147/53 Pulse 68 Temp (Src) 97.9 (Oral) Resp 18 Ht 5' 10" (1.78m) Wt 169 lb 12.1 oz (77.0kg) SpO2 96% BMI 24.36 kg/(m2). O2 Therapy: Room Air HEENT moist mouth Lungs CTA anteriorly Heart S1 S2 Abdomen soft, flat, NT Extremities: dressing on R leg stump ? DATA: Diagnostic tests reviewed for today's visit: Most recent labs and imaging results. Assessment/Plan Diabetes mellitus type 2, 37 years duration; uncontrolled with complications; HbA1c 9.8. Took insulin in past a few years ago. Started on prog Lantus 10 units qhs on 08/22. Contd home Rx, Metformin 1 gm bid and Glimepiride 4 mg po daily am. Still had hyperglycemia; added prandial humalog 4 units qac tid last pm. Watch on Rx. 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 HTN (hypertension) POA: Yes Assessment AND Plan: on Rx Dyslipidemia POA: Yes Assessment AND Plan: on Rx Hypothyroidism POA: Yes Assessment AND Plan: on LT4 Malnutrition of moderate degree (HCC) POA: Yes Assessment AND Plan: on Boost supplements SIGNATURE: Doris Eden MD PATIENT NAME: Elizabeth Modi DATE: August 25, 2019 TIME: 9:29 AM PAGER: [phone] Normal [facility] PLAN OF CAREon 08-25-2019 PLAN OF CARE HNO ID: [id number] Author: Francine Roberts Service: General Surgery Author Type: Resident Type: Plan of Care Filed: 08/25/2019 8:12 AM Note Text: R guillotine amputation dressing changed with xeroform, gauze, Kerlix and jero wrap. Pt tolerated well with no pain. Stump with blood clots and vitalized tissue. No evidence of infection. Francine Roberts MD General Surgery, PGY-3 August 25, 2019 8:11 AM [facility] PROGRESSon 08-25-2019 PROGRESS HNO ID: [id number] Author: Sue Bianchi Service: Hospital Medicine Author Type: Physician Type: Progress Notes Filed: 08/25/2019 4:34 PM Note Text: DEPARTMENT OF HOSPITAL MEDICINE PROGRESS NOTE SERVICE DATE: 08/25/2019 SERVICE TIME: 1:10 PM Hospital Medicine/Primary Attending: Sue Bianchi, DO NIGHT AND WEEKEND COVERAGE: After 7pm, please call cross cover pager #[phone] Subjective INTERVAL HPI: Patient seen and examined. Feeling well. No complaints of pain, CP or SOB MEDICATIONS: Reviewed Objective PHYSICAL EXAM: BP 131/84 Pulse 84 Temp (Src) 98.2 (Oral) Resp 18 Ht 5' 10" (1.78m) Wt 169 lb 12.1 oz (77.0kg) SpO2 97% BMI 24.36 kg/(m2). O2 Therapy: Room Air Physical Exam Performed Constitutional - Vitals as above, not in acute distress Resp - Clear to auscultate both sides, no wheezes, crackles or rales, no labored breathing CVS- RRR. No murmur, gallop or rub, pulse 2+ GI - NTND, bowel sounds normally heard, no mass palpable MANAGER AUDIO- cranial nerves 2 to 12 grossly intact, no focal motor or sensory deficits noted, speech normal Psych- A ANDO x 3, mood normal Skin- R lower extremity dressing intact, wound care notes and images reviewed Lines, Drains, and Airways Line Peripheral 08/21/192238 Assessment Left Antecubital 20 Gauge 3 days Reviewed lines and needs to be continued: REASONS: Intravenous antibiotics DATA: Diagnostic tests reviewed for today's visit: Most recent labs and imaging results. Assessment/Plan #RLE wound infection with wet gangrene and necrosis POD #2 s/p amputation-plan now is for arteriogram likely next week and then possibly bka v aka pending results, vascular and orthopedics following along, abx have been stopped now #anemia-improved #hx PAD-continue statin #DM 2, uncontrolled-patient had been on insulin in past, unable to afford. He then started pills and a1c has gone from 7 to 9 to 9.8 today, continue SSI, check a1c, hold po medication for now, endocrinology consult given likely needs insulin but with issues affording, appreciate input #hypothyroidism-contin ue synthroid #hypophos-replace and follow #HTN-continue lisinopril #HLD-statin Medication and Non-Pharmacologic VTE Prophylaxis/Anticoagul ants Anticoagulant AND Antiplatelet Medications (From admission, onward) Start Dose Route Frequency Ordered Stop 08/21/191929 heparin 5,000 Units injection (Medical Risk Categories) 5,000 Units SUBCUTANEOUS EVERY 12 HOURS 08/21/191915 -- 08/21/191914 vte non-pharmacologic prophylaxis - none indicated (de,mi) 08/21/191914 activity - mobilize patient ([place]) VTE Prophylaxis: VTE prophylaxis appropriate Disposition: Home with [facility] Plan of care discussed with: Provider, RN, Patient SIGNATURE: Sue Bianchi DO PATIENT NAME: Elizabeth Modi DATE: August 25, 2019 TIME:1:10 PM PAGER/CONTACT #: [phone] [phone] [facility] PROGRESS HNO ID: [id number] Author: Francine Roberts Service: General Surgery Author Type: Resident Type: Progress Notes Filed: 08/25/2019 8:13 AM Note Text: Attestation signed by Ryan Allen at 08/25/2019 10:09 AM Attending Note I personally saw and examined the patient. I reviewed the resident's note. I agree with the resident's assessment and plan unless otherwise noted. Feeling well this morning. Discussed future planning for surgery probably this coming week (today is Monday) for final revision and completion of right below-knee amputation. Signature: Ryan Allen MD Date: 08/25/2019 Time: 10:08 AM Vascular/Thoracic Surgery Progress Note SERVICE DATE: 08/25/2019 Vascular AND Thoracic Surgery Service Pager: For questions or concerns Mon-Mon 6a-5p please page [phone]. After 5pm and on Weekends and Holidays, please page [phone] if in ICU or [phone] if on RNF. Subjective SUBJECTIVE: Denies leg pain. Feeling fine this AM. No complaints. Diet: DIET CARBOHYDRATE CONTROLLED Objective OBJECTIVE: Vitals: Temp (24hrs), Av.7 ?C (98 ?F), Min:36.5 ?C (97.7 ?F), Max:36.8 ?C (98.2 ?F) BP 147/53 Pulse 68 Temp 36.6 ?C (97.9 ?F) (Oral) Resp 18 Ht 177.8 cm (5' 10") Wt 77 kg (169 lb 12.1 oz) SpO2 96% BMI 24.36 kg/m? O2 Therapy: Room Air IANDO: Date 08/24/19699 - 08/25/1965808/25/19699 - 08/26/19 0659 Shift 2370-1306 4118-1369 3543-3038 24 Hour Total 0574-1590 4457-7098 4814-5374 24 Hour Total INTAKE Shift Total OUTPUT Urine 300 300 Void (ml) 300 300 Urine Not Saved. 1 x 1 x # of BMs Number of BMs 1 x 1 x Shift Total 300 300 Weight (kg) 77.5 77.5 77 77 77 77 77 77 MEDICATIONS Current Facility-Administered Medications Medication Dose Route Frequency - phosphorus 250 mg tab(s) (K PHOS NEUTRAL) 250 mg ORAL PC and HS - insulin lispro 4 Units pen (rapid acting) (HumaLOG KWIKPEN) 4 Units SUBCUTANEOUS w MEALS - gabapentin 100 mg cap(s) (NEURONTIN) 100 mg ORAL q 8 H - metoprolol succinate ER 25 mg tab(s) (TOPROL XL) 25 mg ORAL DAILY - insulin lispro pen (rapid acting) (HumaLOG KWIKPEN) SUBCUTANEOUS w MEALS - glimepiride 4 mg tab(s) (AMARYL) 4 mg ORAL DAILY WITH BREAKFAST - metFORMIN 1,000 mg tab(s) (GLUCOPHAGE) 1,000 mg ORAL BID w MEALS - insulin glargine 10 Units pen (long acting) (LANTUS SOLOSTAR, BASAGLAR KWIKPEN) 10 Units SUBCUTANEOUS AT BEDTIME - heparin 5,000 Units injection 5,000 Units SUBCUTANEOUS q 12 H - ondansetron 4 mg tab(s) (ZOFRAN) 4 mg ORAL q 6 H PRN Or - ondansetron (PF) 4 mg injection (ZOFRAN) 4 mg INTRAVENOUS q 6 H PRN - polyethylene glycol 3350 17 g packet (MIRALAX, GLYCOLAX) 17 g ORAL DAILY PRN - docusate sodium 100 mg cap(s) (COLACE) 100 mg ORAL BID PRN - magnesium hydroxide 400 mg/5 mL 30 mL (MOM) 30 mL ORAL DAILY PRN - bisacodyl 10 mg suppository (DULCOLAX) 10 mg RECTAL DAILY PRN - acetaminophen 650 mg tab(s) (TYLENOL) 650 mg ORAL q 6 H PRN - atorvastatin 40 mg tab(s) (LIPITOR) 40 mg ORAL DAILY - lisinopril 10 mg tab(s) (ZESTRIL, PRINIVIL) 10 mg ORAL DAILY - levothyroxine 25 mcg tab(s) (SYNTHROID) 25 mcg ORAL DAILY - dextrose 40 % 15 g 15 g ORAL PRN Or - glucagon 1 mg injection (GLUCAGEN) 1 mg INTRAMUSCULAR PRN Or - dextrose 50% in water 25 mL syringe 12.5 g INTRAVENOUS PRN Labs: Recent Labs 08/24/19 0630 08/23/19 0345 NA 131* 133* K 4.4 3.8 CHLOR 105 103 CO2 20* 22 BUN 12 15 CREAT 0.76 0.88 GLUC 107* 96 ANION 10 12 CA 7.9* 7.2* MG 2.4 0.9* P 2.3* 2.1* WBC 9.20* 18.79* HB 11.7* 10.2* HCT 36.9* 31.0* PLT 428* 421* Exam: GENERAL: No distress, Alert, pleasant, smiling NEURO: AANDOx3, CN II-XII grossly intact HEENT: normocephalic, atraumatic, EOMI NECK: trachea midline, no JVD LUNGS: Unlabored breathing O2 Therapy: Room Air CARDIAC: Regular rate, BP as above ABDOMEN: Soft, non-tender, non-distended EXTREMITIES: R stump jero wrap in place with unchanged serosang drainage on dressing PSYCH: normal mood and affect ASSESSMENT AND PLAN: Active Hospital Problems Diagnosis Date Noted - Malnutrition of moderate degree (HCC) 08/22/2019 - Gangrene of foot (HCC) 08/21/2019 - Diabetes (HCC) 08/21/2019 - HTN (hypertension) 08/21/2019 - Dyslipidemia 08/21/2019 - Hypothyroidism 08/21/2019 Assessment: 79 year old male with PMH thyroid disease, HTN, dyslipidemia, DM, claudication who presents with necrosis of R foot. 3/6 R distal below knee guillotine amputation Plan: - DIET CARBOHYDRATE CONTROLLED - leukocytosis improved post op, abx stopped per ID 08/23 - dressing change today - PT/OT - acute rehab - out of bed to chair - BKA this week, timing TBD - further care per primary Assessment and plan discussed with attending: Dr. Allen SIGNATURE: Francine Roberts MD PATIENT NAME: Elizabeth Modi DATE: August 25, 2019 TIME: 8:02 AM Vascular AND Thoracic Surgery Service Pager: For questions or concerns Mon-Mon 6a-5p please page [phone]. After 5pm and on Weekends and Holidays, please page [phone] if in ICU or [phone] if on RNF. Normal [facility] Basic Panelon 08-24-2019 Creatinine [Mass/Vol] 0.76 mg/dL Normal 0.67-1.17 [facility] Comment on above: Result Comment: Use of this assay is not recommended for patients undergoing treatment with phenindione, due to the potential for falsely depressed results. Performed By: #### G LMET #### [facility] [address] [place], [place] [address] Anion gap [Moles/Vol] 10 mmol/L Normal 8-16 [facility] Comment on above: Performed By: #### G LMET #### [facility] [address] [place], [place] [address] CO2 [Moles/Vol] 20 mmol/L Low 21-32 [facility] Comment on above: Performed By: #### G LMET #### [facility] [address] [place], [place] [address] Glucose [Mass/Vol] 107 mg/dL High 70-99 [facility] Comment on above: Performed By: #### G LMET #### [facility] [address] [place], [place] [address] Urea nitrogen [Mass/Vol] 12 mg/dL Normal 7-18 [facility] Comment on above: Performed By: #### G LMET #### [facility] [address] [place], [place] [address] Calcium [Mass/Vol] 7.9 mg/dL Low 8.5-10.1 [facility] Comment on above: Performed By: #### G LMET #### [facility] [address] [place], [place] [address] Chloride [Moles/Vol] 105 mmol/L Normal 98-107 [facility] Comment on above: Performed By: #### G LMET #### [facility] [address] [place], [place] [address] Potassium [Moles/Vol] 4.4 mmol/L Normal 3.5-5.1 [facility] Comment on above: Performed By: #### G LMET #### [facility] [address] [place], [place] [address] Sodium [Moles/Vol] 131 mmol/L Low 136-145 [facility] Comment on above: Performed By: #### G LMET #### [facility] [address] [place], [place] [address] CONSULT PROGon 08-24-2019 CONSULT PROG HNO ID: [id number] Author: Hermila Gallegos Service: Endocrinology Author Type: Physician Type: Consult Progress Note Filed: 08/24/2019 3:20 PM Note Text: ENDOCRINOLOGY CONSULT PROGRESS NOTE SERVICE DATE: 08/24/2019 SERVICE TIME: 1:20PM Subjective INTERVAL HPI: pt followed for diabetes mellitus type 2 with complications; currently on lantus 10 units daily, metformin 1 gm bid and glimepiride se 4 mg po daily; hyperglycemic DIET CARBOHYDRATE CONTROLLED Recent Labs 08/24/19 1143 08/24/19 0737 08/24/19 0630 08/23/19 2133 08/23/19 0345 08/22/19 0454 GLUC -- -- 107* -- -- 96 -- 218* GLUCOSEMETER 231* 151* -- 153* < > -- < > -- < > = values in this interval not displayed. Current Facility-Administered Medications Medication Dose Route Frequency - heparin 5,000 Units injection 5,000 Units SUBCUTANEOUS q 12 H - ondansetron 4 mg tab(s) (ZOFRAN) 4 mg ORAL q 6 H PRN Or - ondansetron (PF) 4 mg injection (ZOFRAN) 4 mg INTRAVENOUS q 6 H PRN - polyethylene glycol 3350 17 g packet (MIRALAX, GLYCOLAX) 17 g ORAL DAILY PRN - docusate sodium 100 mg cap(s) (COLACE) 100 mg ORAL BID PRN - magnesium hydroxide 400 mg/5 mL 30 mL (MOM) 30 mL ORAL DAILY PRN - bisacodyl 10 mg suppository (DULCOLAX) 10 mg RECTAL DAILY PRN - acetaminophen 650 mg tab(s) (TYLENOL) 650 mg ORAL q 6 H PRN - atorvastatin 40 mg tab(s) (LIPITOR) 40 mg ORAL DAILY - lisinopril 10 mg tab(s) (ZESTRIL, PRINIVIL) 10 mg ORAL DAILY - levothyroxine 25 mcg tab(s) (SYNTHROID) 25 mcg ORAL DAILY - dextrose 40 % 15 g 15 g ORAL PRN Or - glucagon 1 mg injection (GLUCAGEN) 1 mg INTRAMUSCULAR PRN Or - dextrose 50% in water 25 mL syringe 12.5 g INTRAVENOUS PRN - gabapentin 100 mg cap(s) (NEURONTIN) 100 mg ORAL q 8 H - metoprolol succinate ER 25 mg tab(s) (TOPROL XL) 25 mg ORAL DAILY - insulin lispro pen (rapid acting) (HumaLOG KWIKPEN) SUBCUTANEOUS w MEALS - glimepiride 4 mg tab(s) (AMARYL) 4 mg ORAL DAILY WITH BREAKFAST - metFORMIN 1,000 mg tab(s) (GLUCOPHAGE) 1,000 mg ORAL BID w MEALS - insulin glargine 10 Units pen (long acting) (LANTUS SOLOSTAR, BASAGLAR KWIKPEN) 10 Units SUBCUTANEOUS AT BEDTIME - phosphorus 250 mg tab(s) (K PHOS NEUTRAL) 250 mg ORAL PC and HS Objective PHYSICAL EXAM: BP 136/76 Pulse 91 Temp (Src) 98.2 (Temporal) Resp 18 Ht 5' 10" (1.78m) Wt 170 lb 13.7 oz (77.5kg) SpO2 97% BMI 24.52 kg/(m2). O2 Therapy: Room Air HEENT moist mouth Lungs CTA anteriorly Heart S1 S2 Abdomen soft, flat, NT Extremities kerlex wrap on R stump with some bloody drainage ? DATA: Diagnostic tests reviewed for today's visit: Most recent labs and imaging results. Assessment/Plan Diabetes mellitus type 2 uncontrolled with complications; HbA1c 9.8 currently on lantus 10 units daily, metformin 1 gm bid and glimepiride se 4 mg po daily; with hyperglycemia; continue lantus and add prandial humalog 4 units qac tid; may need to d/c glimepiride. Gangrene of foot (HCC) POA: Yes Assessment AND Plan: S/p R STEPHANIE HTN (hypertension) POA: Yes Assessment AND Plan: Dyslipidemia POA: Yes Assessment AND Plan: Hypothyroidism POA: Yes Assessment AND Plan: on LT4 Malnutrition of moderate degree (HCC) POA: Yes Assessment AND Plan: SIGNATURE: Hermila Gallegos MD PATIENT NAME: Elizabeth Modi DATE: August 24, 2019 TIME: 3:12 PM PAGER: [phone] Normal [facility] CONSULT PROG HNO ID: [id number] Author: Martha Ryan (Pharmacist) Service: Pharmacy Author Type: Pharmacist Type: Consult Progress Note Filed: 08/24/2019 9:16 AM Note Text: PHARMACY VANCOMYCIN DOSING NOTE Patient Name: Elizabeth Modi Admission Date: 08/21/2019 Date of Consult: 08/24/2019 Time of Consult: 9:15 AM The primary service has discontinued vancomycin therapy. Pharmacy vancomycin dosing service will sign off. Thank you for allowing us to participate in this patient's care. Please contact pharmacy if questions. MARTHA RYAN, PHARMACIST Ext: [phone] Normal [facility] Hemogram/Diffon 08-24-2019 Abs Immature Grans 0.19 thou/cmm High 0.00-0.05 [facility] Comment on above: Performed By: #### M AG #### [place] [address] Abs Neut (ANC) 6.15 thou/cmm High 1.78-5.38 [facility] Comment on above: Performed By: #### M AG #### [place] [address] Abs. Baso 0.04 thou/cmm Normal 0.01-0.08 [facility] Comment on above: Result Comment: Smea r scanned; tech agrees with automated differential Performed By: #### M AG #### [place] [address] Abs. [place] 0.75 thou/cmm Normal 0.30-0.82 [facility] Comment on above: Performed By: #### M AG #### [facility] [address] [place], [place] [address] Basophils/100 WBC (Bld) 0.4 % Normal [facility] Comment on above: Performed By: #### M AG #### [facility] [address] [place], [place] [address] Eosinophils (Bld) [#/Vol] 0.20 thou/cmm Normal 0.04-0. 54 [facility] Comment on above: Performed By: #### M AG #### [facility] [address] [place], [place] [address] Eosinophils/100 WBC (Bld) 2.2 % Normal [facility] Comment on above: Performed By: #### M AG #### [facility] [address] [place], [place] [address] Immature Grans 2.10 % Normal [facility] Comment on above: Performed By: #### M AG #### [facility] [address] [place], [place] [address] Lymphocytes (Bld) [#/Vol] 1.86 thou/cmm Normal 0.84-2. 85 [facility] Comment on above: Performed By: #### M AG #### [facility] [address] [place], [place] [address] Lymphocytes/100 WBC (Bld) 20.2 % Normal [facility] Comment on above: Performed By: #### M AG #### [facility] [address] [place], [place] [address] Monocytes/100 WBC (Bld) 8.2 % Normal A [facility] Comment on above: Performed By: #### M AG #### [facility] [address] [place], [place] [address] Seg Neutrophil 66.9 % Normal [facility] Comment on above: Performed By: #### M AG #### [facility] [address] [place], [place] [address] Erythrocyte distribution width (RBC) [Ratio] 13.3 % Normal 11.6-14.4 [facility] Comment on above: Performed By: #### M AG #### [facility] [address] [place] [address] Hematocrit (Bld) [Volume fraction] 36.9 % Low 40.1-51.0 [facility] Comment on above: Performed By: #### M AG #### [facility] [address] [place] [address] Hemoglobin (Bld) [Mass/Vol] 11.7 g/dL Low 13.7-17.5 [facility] Comment on above: Performed By: #### M AG #### [facility] [address] [place] [address] MCH (RBC) [Entitic mass] 28.1 pg Normal 25.7-32.2 [facility] Comment on above: Performed By: #### M AG #### [place] [address] MCHC (RBC) [Mass/Vol] 31.7 % Low 32.3-36.5 [facility] Comment on above: Performed By: #### M AG #### [place] [address] MCV (RBC) [Entitic vol] 88.7 fL Normal 83.2-95.6 [facility] Comment on above: Performed By: #### M AG #### [place] [address] Platelet mean volume (Bld) [Entitic vol] 9.5 fL Normal 8.7-12.0 [facility] Comment on above: Performed By: #### M AG #### [facility] [address] [place] [address] Platelets (Bld) [#/Vol] 428 thou/cmm High 141-365 [facility] Comment on above: Performed By: #### M AG #### [facility] [address] [place] [address] RBC (Bld) [#/Vol] 4.16 mil/cmm Low 4.63-6.08 [facility] Comment on above: Performed By: #### M AG #### [facility] [address] [place], [place] [address] RDW SD 43.4 fl Normal 36.1-45.8 [facility] Comment on above: Performed By: #### M AG #### [facility] [address] [place], [place] [address] WBC (Bld) [#/Vol] 9.20 thou/cmm High 4.23-9.07 [facility] Comment on above: Performed By: #### M AG #### [facility] [address] [place], [place] [address] Magnesium Bloodon 08-24-2019 Magnesium [Mass/Vol] 2.4 mg/dL Normal 1.6-2.6 [facility] Comment on above: Performed By: #### M AG #### [facility] [address] [place], [place] [address] PROGRESSon 08-24-2019 PROGRESS HNO ID: [id number] Author: Sue Bianchi Service: Hospital Medicine Author Type: Physician Type: Progress Notes Filed: 08/24/2019 5:16 PM Note Text: DEPARTMENT OF HOSPITAL MEDICINE PROGRESS NOTE SERVICE DATE: 08/24/2019 SERVICE TIME: 12:40 PM Hospital Medicine/Primary Attending: Sue Bianchi, DO NIGHT AND WEEKEND COVERAGE: After 7pm, please call cross cover pager #[phone] Subjective INTERVAL HPI: Patient seen and examined. Feeling much better today. Up and eating lunch. No complaints of chest pain or SOB. MEDICATIONS: Reviewed Objective PHYSICAL EXAM: BP 134/59 Pulse 78 Temp (Src) 98.2 (Temporal) Resp 18 Ht 5' 10" (1.78m) Wt 170 lb 13.7 oz (77.5kg) SpO2 98% BMI 24.52 kg/(m2). O2 Therapy: Room Air Physical Exam Performed Constitutional - Vitals as above, not in acute distress Resp - Clear to auscultate both sides, no wheezes, crackles or rales, no labored breathing CVS- RRR. No murmur, gallop or rub, pulse 2+ GI - NTND, bowel sounds normally heard, no mass palpable MANAGER AUDIO- cranial nerves 2 to 12 grossly intact, no focal motor or sensory deficits noted, speech normal Psych- A ANDO x 3, mood normal Skin- R lower extremity dressing intact, wound care notes and images reviewed Lines, Drains, and Airways Line Peripheral 08/21/192238 Assessment Left Antecubital 20 Gauge 2 days Peripheral 08/21/192239 Assessment Right Antecubital 20 Gauge 2 days Reviewed lines and needs to be continued: REASONS: Intravenous antibiotics DATA: Diagnostic tests reviewed for today's visit: Most recent labs and imaging results. Assessment/Plan #sepsis POA-secondary to foot infection, gangrene, resolved #RLE wound infection with wet gangrene and necrosis POD #1 s/p amputation-plan now is for arteriogram likely next week and then possibly bka v aka pending results, vascular and orthopedics following along #leukocytosis-resolved #anemia-improved #hx PAD-continue statin #DM 2, uncontrolled-patient had been on insulin in past, unable to afford. He then started pills and a1c has gone from 7 to 9 to 9.8 today, continue SSI, check a1c, hold po medication for now, endocrinology consult given likely needs insulin but with issues affording, appreciate input #hypothyroidism-contin ue synthroid #hypophos-replace and follow #HTN-continue lisinopril #HLD-statin Medication and Non-Pharmacologic VTE Prophylaxis/Anticoagul ants Anticoagulant AND Antiplatelet Medications (From admission, onward) Start Dose Route Frequency Ordered Stop 08/21/19 1930 heparin 5,000 Units injection (Medical Risk Categories) 5,000 Units SUBCUTANEOUS EVERY 12 HOURS 08/21/191915 -- 08/21/191914 vte non-pharmacologic prophylaxis - none indicated (de,mi) 08/21/191914 activity - mobilize patient ([place]) VTE Prophylaxis: VTE prophylaxis appropriate Disposition: Home with [facility] Plan of care discussed with: Provider, RN, Patient SIGNATURE: Sue Bianchi DO PATIENT NAME: Elizabeth Modi DATE: August 24, 2019 TIME:12:40 PM PAGER/CONTACT #: [phone] Normal [facility] PROGRESS HNO ID: [id number] Author: Edy Paredes Service: Infectious Disease Author Type: Physician Type: Progress Notes Filed: 08/24/2019 9:20 AM Note Text: Edy Paredes MD, MS, FACP, [facility] Division of Infectious Diseses [address] [facility] [address] [place] [address] Office: [phone] INFECTIOUS DISEASE CONSULT PROGRESS NOTE SERVICE DATE: 08/24/2019 SERVICE TIME: 9:17 AM Subjective INTERVAL HISTORY: Lying in bed, resting comfortably. No complaints. PERTINENT ROS: Denies fever or chills. Current Facility-Administered Medications Medication Dose Route Frequency - phosphorus 250 mg tab(s) (K PHOS NEUTRAL) 250 mg ORAL PC and HS - gabapentin 100 mg cap(s) (NEURONTIN) 100 mg ORAL q 8 H - metoprolol succinate ER 25 mg tab(s) (TOPROL XL) 25 mg ORAL DAILY - insulin lispro pen (rapid acting) (HumaLOG KWIKPEN) SUBCUTANEOUS w MEALS - glimepiride 4 mg tab(s) (AMARYL) 4 mg ORAL DAILY WITH BREAKFAST - metFORMIN 1,000 mg tab(s) (GLUCOPHAGE) 1,000 mg ORAL BID w MEALS - insulin glargine 10 Units pen (long acting) (LANTUS SOLOSTAR, BASAGLAR KWIKPEN) 10 Units SUBCUTANEOUS AT BEDTIME - heparin 5,000 Units injection 5,000 Units SUBCUTANEOUS q 12 H - ondansetron 4 mg tab(s) (ZOFRAN) 4 mg ORAL q 6 H PRN Or - ondansetron (PF) 4 mg injection (ZOFRAN) 4 mg INTRAVENOUS q 6 H PRN - polyethylene glycol 3350 17 g packet (MIRALAX, GLYCOLAX) 17 g ORAL DAILY PRN - docusate sodium 100 mg cap(s) (COLACE) 100 mg ORAL BID PRN - magnesium hydroxide 400 mg/5 mL 30 mL (MOM) 30 mL ORAL DAILY PRN - bisacodyl 10 mg suppository (DULCOLAX) 10 mg RECTAL DAILY PRN - acetaminophen 650 mg tab(s) (TYLENOL) 650 mg ORAL q 6 H PRN - atorvastatin 40 mg tab(s) (LIPITOR) 40 mg ORAL DAILY - lisinopril 10 mg tab(s) (ZESTRIL, PRINIVIL) 10 mg ORAL DAILY - levothyroxine 25 mcg tab(s) (SYNTHROID) 25 mcg ORAL DAILY - dextrose 40 % 15 g 15 g ORAL PRN Or - glucagon 1 mg injection (GLUCAGEN) 1 mg INTRAMUSCULAR PRN Or - dextrose 50% in water 25 mL syringe 12.5 g INTRAVENOUS PRN Objective PHYSICAL EXAM: Vital Signs: BP 143/71 Pulse 86 Temp 36.5 ?C (97.7 ?F) (Oral) Resp 18 Ht 177.8 cm (5' 10") Wt 77.5 kg (170 lb 13.7 oz) SpO2 97% BMI 24.52 kg/m? Tmax 36.9 HEENT moist mouth Lungs CTA anteriorly Heart S1 S2 Abdomen soft, flat, NT Extremities kerlex wrap on R stump with some bloody drainage DATA: Diagnostic Tests Reviewed for Today's Visit: WBC 9.2, creatinine 0.7 Impression/Recommendat ions Active Problems: Gangrene of foot (HCC) POA: Yes Assessment AND Plan: s/p R BKA. DC antibiotics and observe. Diabetes (HCC) POA: Yes Assessment AND Plan: Complicates management. Leukocytosis POA: Yes Assessment AND Plan: WBC decreasing 18 to 9. No active ID issues, will sign off. SIGNATURE: Edy Paredes MD, MS, FACP, [facility] PATIENT NAME: Elizabeth Modi DATE: August 24, 2019 TIME: 9:16 AM PAGER/CONTACT #: [phone] [facility] PROGRESS HNO ID: [id number] Author: Francine Roberts Service: Vascular Surgery Author Type: Resident Type: Progress Notes Filed: 08/24/2019 7:53 AM Note Text: Attestation signed by Ryan Allen at 08/24/2019 11:30 AM I personally saw and examined the patient on 08/24/19. I reviewed the resident's note. I agree with the resident's assessment and plan unless otherwise noted. Patient feeling well. Plan for dressing change tomorrow and probably revision to below-knee amputation this week if vascular and infectious issues are stable. Vascular/Thoracic Surgery Progress Note SERVICE DATE: 08/24/2019 Vascular AND Thoracic Surgery Service Pager: For questions or concerns Mon-Fri 6a-5p please page [phone]. After 5pm and on Weekends and Holidays, please page [phone] if in ICU or [phone] if on RNF. Subjective SUBJECTIVE: Denies leg pain. Feeling better overall. No complaints. Tolerating a diet. Diet: DIET CARBOHYDRATE CONTROLLED Objective OBJECTIVE: Vitals: Temp (24hrs), Av.5 ?C (97.7 ?F), Min:36 ?C (96.8 ?F), Max:36.9 ?C (98.4 ?F) BP 128/58 Pulse 77 Temp 36.9 ?C (98.4 ?F) (Oral) Resp 16 Ht 177.8 cm (5' 10") Wt 85 kg (187 lb 6.3 oz) SpO2 94% BMI 26.89 kg/m? O2 Therapy: Nasal Cannula IANDO: Date 08/23/19 07 - 08/24/19 0659 08/24/19 07 - 08/25/19 0659 Shift 5320-2114 3986-0256 5543-5736 24 Hour Total 0353-8362 4775-8606 6718-7961 24 Hour Total INTAKE IV 625 625 OR Crystalloid intake (mL) 250 250 Volume (mL) (lactated ringers infusion) 125 125 Volume (mL) (vancomycin iv piggyback 1.25 g in D5W 250 mL (VANCOCIN)) 250 250 Shift Total 625 625 OUTPUT Urine 185 675 9785 Void (ml) 023 474 5866 Blood 50 50 Estimated Blood loss 50 50 Shift Total 629 341 3214 Weight (kg) 85 85 85 85 85 85 85 85 MEDICATIONS Current Facility-Administered Medications Medication Dose Route Frequency - dextrose 5% in NaCl 0.45% with 20 mEq/L KCl iv infusion 80 mL/hr INTRAVENOUS CONTINUOUS - gabapentin 100 mg cap(s) (NEURONTIN) 100 mg ORAL q 8 H - metoprolol succinate ER 25 mg tab(s) (TOPROL XL) 25 mg ORAL DAILY - insulin lispro pen (rapid acting) (HumaLOG KWIKPEN) SUBCUTANEOUS w MEALS - glimepiride 4 mg tab(s) (AMARYL) 4 mg ORAL DAILY WITH BREAKFAST - metFORMIN 1,000 mg tab(s) (GLUCOPHAGE) 1,000 mg ORAL BID w MEALS - insulin glargine 10 Units pen (long acting) (LANTUS SOLOSTAR, BASAGLAR KWIKPEN) 10 Units SUBCUTANEOUS AT BEDTIME - ampicillin-sulbactam iv piggyback 3 g in NaCl 0.9% 100 mL MB+/ADD-Beryl (UNASYN) 3 g INTRAVENOUS q 6 H - vancomycin iv piggyback 1.25 g in D5W 250 mL (VANCOCIN) 1.25 g INTRAVENOUS q 24 HR - heparin 5,000 Units injection 5,000 Units SUBCUTANEOUS q 12 H - aluminum-magnesium hydroxide-simethicone 200-200-20 mg/5 mL 30 mL (MAALOX,MYLANTA,MAG-AL PLUS) 30 mL ORAL DAILY PRN - ondansetron 4 mg tab(s) (ZOFRAN) 4 mg ORAL q 6 H PRN Or - ondansetron (PF) 4 mg injection (ZOFRAN) 4 mg INTRAVENOUS q 6 H PRN - polyethylene glycol 3350 17 g packet (MIRALAX, GLYCOLAX) 17 g ORAL DAILY PRN - docusate sodium 100 mg cap(s) (COLACE) 100 mg ORAL BID PRN - magnesium hydroxide 400 mg/5 mL 30 mL (MOM) 30 mL ORAL DAILY PRN - bisacodyl 10 mg suppository (DULCOLAX) 10 mg RECTAL DAILY PRN - acetaminophen 650 mg tab(s) (TYLENOL) 650 mg ORAL q 6 H PRN - atorvastatin 40 mg tab(s) (LIPITOR) 40 mg ORAL DAILY - lisinopril 10 mg tab(s) (ZESTRIL, PRINIVIL) 10 mg ORAL DAILY - levothyroxine 25 mcg tab(s) (SYNTHROID) 25 mcg ORAL DAILY - dextrose 40 % 15 g 15 g ORAL PRN Or - glucagon 1 mg injection (GLUCAGEN) 1 mg INTRAMUSCULAR PRN Or - dextrose 50% in water 25 mL syringe 12.5 g INTRAVENOUS PRN - vancomycin dosing and monitoring per pharmacy OTHER As Directed Labs: Recent Labs 08/23/19 0345 08/22/19 0454 NA 133* 133* K 3.8 4.1 CHLOR 103 104 CO2 22 21 BUN 15 31* CREAT 0.88 0.95 GLUC 96 218* ANION 12 12 CA 7.2* 7.1* MG 0.9* -- P 2.1* -- ALB -- 1.7* AST -- 81* ALT -- 73 ALKPHOS -- 107 TBILI -- 0.5 WBC 18.79* 19.76* HB 10.2* 9.4* HCT 31.0* 28.4* PLT 421* 380* Exam: GENERAL: No distress, Alert, pleasant, smiling NEURO: AANDOx3, CN II-XII grossly intact HEENT: normocephalic, atraumatic, EOMI NECK: trachea midline, no JVD LUNGS: Unlabored breathing O2 Therapy: Nasal Cannula CARDIAC: Regular rate, BP as above ABDOMEN: Soft, non-tender, non-distended EXTREMITIES: R stump jero wrap in place with serosang drainage on dressing PSYCH: normal mood and affect ASSESSMENT AND PLAN: Active Hospital Problems Diagnosis Date Noted - Malnutrition of moderate degree (HCC) 08/22/2019 - Gangrene of foot (HCC) 08/21/2019 - Diabetes (HCC) 08/21/2019 - HTN (hypertension) 08/21/2019 - Dyslipidemia 08/21/2019 - Hypothyroidism 08/21/2019 Assessment: 79 year old male with PMH thyroid disease, HTN, dyslipidemia, DM, claudication who presents with necrosis of R foot. 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 Allen SIGNATURE: Francine Roberts MD PATIENT NAME: Elizabeth Modi DATE: August 24, 2019 TIME: 8:02 AM Vascular AND Thoracic Surgery Service Pager: For questions or concerns Mon-Mon 6a-5p please page [phone]. After 5pm and on Weekends and Holidays, please page [phone] if in ICU or [phone] if on RNF. Normal [facility] Phosphorus Bloodon 0 Phosphate [Mass/Vol] 2.3 mg/dL Low 2.5-4.9 [facility] Comment on above: Performed By: #### G LMET #### [facility] [address] [id number] THERAPY NTon 08-24-2019 THERAPY NT HNO ID: [id number] Author: Lizeth (Pt) Papito Service: Physical Therapy Author Type: Physical Therapist Type: Therapy (PT/OT/Speech/Resp) Filed: 08/24/2019 2:49 PM Note Text: Physical Therapy Evaluation SERVICE DATE: 08/24/2019 SERVICE TIME: 1325 to 1346 ROOM: [place] [id number] Recommended Discharge Disposition: Acute Rehab Recommended Discharge Disposition Comments: Pt is functioning far below his baseline level. He would benefit from intense rehabilitation program to maximize functional gains and aide in return to prior level of independence. Justification For Post Acute Needs: Willing to participate;Motivated; Living the community premorbidly;Good sitting tolerance;Good family support;Anticipate patient will tolerate 3 hours of daily therapy at the time of admission to post-acute setting;Anticipated community discharge PT Recommendations to Nursing: Not appropriate for OOB activity at this time PT 6 Clicks Score: 12 Precautions/Activity Restrictions: Weight Bearing Restrictions;Fall Risk;Lines/Tubes/Drain s Isolation Type: None Extremity With Weight Bearing Restricted: Right Lower Extremity Right Lower Extremity Weight Bearing Status: NWB ASSESSMENT : Patient presents with deficits related to inability to perform functional transfers or ambulation due to the right LE amputation. Pt requires minimal assistance for the transfers he is able to perform. However, at this time he is unable to stand while adhering to WB restrictions of the right LE. Pt is also therefore unable to ambulate which is far reduced compared to his baseline. Other barriers to a discharge to home include limited support in the home environment and stairs to enter. Pt is motivated to improve his strength and work with PT as he has already begun to notice strength deficits. Pt will benefit from continued PT intervention to promote overall strength gains, improve ability to perform transfers and eventually ambulate a short distance. Pt agrees to plan of care. Patient Disposition at Start of Session: Supine in Bed;Call Singh in Reach;SCDs Patient Disposition at End of Session: Supine in Bed;Call Singh in Reach;SCDs Tolerance Limited By Fatigue(pt frustration that he cannot stand despite support) Physical Therapy Problem List: Safety Deficits;Impaired Self Care;Decreased Activity Tolerance;Decreased Strength;Functional Mobility Impairment;Balance Impaired Patient /Caregiver Goals: Walk Goals for Plan of Care: Able to perform HEP with: Verbal Cues Only Transfer supine to/from sit with: Supervision Transfer sit to/from stand with: Minimal Assistance Ambulate with: Moderate Assistance Distance: 5' intervals Device: Wheeled Walker Rehab Potential: Good PLAN: Treatment Frequency (times per week): 7(3-5) Current admission Treatment Interventions: Self Care / Home Management;Energy Conservation Training;Strengthening ;Functional Mobility Training;Balance Training Plan of Care developed with: Patient TREATMENT INTERVENTIONS: Therapy Diagnosis: Difficulty walking-musculoskeleta l;Muscle Weakness (generalized) Interventions Provided: Evaluation $ Evaluation-Low (52045) Billed Units: 1 unit History and examination of body systems see assessment section above. This patient?s clinical presentation is fair. The patient required a low complexity evaluation. Pt was educated on the role of PT within the acute care environment, discussed discharge recommendations. Total Treatment Time (minutes): 21 SUBJECTIVE: Current Hospital Course: Chart reviewed; 79 year old male presents with necrosis of R foot.?08/22 R distal below knee guillotine amputation. Plan for possible surgery Friday 08/25 for wound closure/further cut down of right lower extremity. Reason for Physical Therapy Consult : eval and treat, mobilize Relevant Past Medical History: thyroid, HTN, DM, claudication Patient Report: "I wish I could get up to that chair, but I am so used to pushing with my right leg to stand". Pt agrees to PT evaluation. 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 Entry To Home: Stairs;With Rail Number Of Stairs Into Home: 4 Number Of Stairs To Bed/Bath: 0 Tub/Shower Type: walk in shower Laundry: main level Equipment Owned: Rollator;Wheelchair Prior Functional Level: Required Assistance;Within Functional Limits Assistance Required With: Cleaning Prior Functional Level Comments: pt independent without devices and completed ADLs OBJECTIVE: CURRENT FUNCTIONAL STATUS: Current Functional Mobility Assist Level Additional Information Rolling Stand By Assistance Supine to Sit Minimal Assistance Sit to Supine Minimal Assistance Scooting Minimal Assistance Sit to Stand Maximal Assistance(x2 ) Stand to Sit Maximal Assistance(x2) Bed to Chair Toilet/Commode Gait (pt unable) Stairs Curb Step Car Transfer Pt unable to complete sit to stand transfer this date despite max Ax2 due to poor coordination and attempts to push with his right LE. Maximal verbal cues were also provided to assist, but pt still struggled and declined further attempts. Balance: Static Sitting;Dynamic Sitting Static Sitting Balance: Fair Patient able to maintain balance with handhold support, may require occasional minimal assistance Dynamic Sitting Balance: Fair Patient accepts minimal challenge, able to maintain balance while turning head/trunk Activity Tolerance: Sitting Activity Sitting Activity: sitting edge of bed to prepare for transfer attempts Sitting Activity Tolerance (in minutes): 5 JH-HLM: 3: Sit at edge of bed Please see discipline specific clinical documentation flowsheet for complete details for this therapy evaluation/treatment. SIGNATURE: Lizeth Cobos PT PATIENT NAME: Elizabeth Modi DATE: August 24, 2019 TIME: 2:43 PM Normal [facility] THERAPY NT HNO ID: [id number] Author: Susan Ochoar/Vickie Miner Service: Occupational Therapy Author Type: Occupational Therapist Type: Therapy (PT/OT/Speech/Resp) Filed: 08/24/2019 1:07 PM Note Text: Occupational Therapy Evaluation SERVICE DATE: 08/24/2019 SERVICE TIME: 1133 to 1208 ROOM: [id number] Recommended Discharge Disposition: Acute Rehab Justification For Post Acute Needs: Anticipate patient will tolerate 3 hours of daily therapy at the time of admission to post-acute setting;Motivated;Will ing to participate;Living the community premorbidly;Cognition intact OT Recommendations to Nursing: Not appropriate for out of bed activity at this time;Encourage patient participation with in-bed ADL?s;Edge of bed ADL?s;With assist of 1 person OT 6 Clicks Score: 15 Precautions/Activity Restrictions: Weight Bearing Restrictions Isolation Type: None Extremity With Weight Bearing Restricted: Right Lower Extremity Right Lower Extremity Weight Bearing Status: NWB ASSESSMENT: Patient presents with deficits in grooming, UE bathing/dressing, LE bathing/dressing, functional transfers, functional mobility, decreased safety awareness, and decreased insight to deficits after 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 Patient functioning below baseline of independent. Requires skilled OT to maximize independence with ADLs and functional transfers. Right stump bleeding, changed pad and placed clean pad, RN aware. Patient Disposition at Start of Session: Supine in Bed;Call Singh in Reach Patient Disposition at End of Session: Supine in Bed;Call Singh in Reach Tolerated Full Session Occupational Therapy Problem List: Education Deficit;Safety Deficits;Impaired Self Care;Decreased Activity Tolerance;Decreased Strength;Functional Mobility Impairment;Balance Impaired Patient /Caregiver Goals: Go To Rehab;Care For Self Goals for Plan of Care: Grooming with: Set Up Upper Body Dressing with: Set Up Lower Body Dressing with: Contact Guard Assistance Toilet Hygiene with: Minimal Assistance Chair Transfer with: Minimal Assistance Toilet Transfer with: Minimal Assistance(BSC) Additional Goal 1: pt will adhere to NWB status for RLE 100% of the time Additional Goal 2: pt will maximize upper body strength to increase transfers to min assist Transfer: stand pivot transfer wtih min assist Rehab Potential: Good PLAN: Treatment Frequency (times per week): 5(1-5) Current admission Treatment Interventions: Education;Self Care / Home Management;Energy Conservation Training;Balance Training;Functional Mobility Training;Strengthening Plan of Care developed with: Patient TREATMENT INTERVENTIONS: Therapy Diagnosis: Reduced mobility-other;Decreas ed activities of daily living (ADL);General symptoms and signs-other Interventions Provided: Evaluation;Self Long-Term Management (54894) $ Evaluation-Moderate (01259) Billed Units: 1 unit OT Evaluation Moderate Complexity: Occupational Profile - Extended review of patient's medical record completed including patient's physical, cognitive, and psycho-social history (please see current hospital course of evaluation). Occupational Performance - Pt presents with deficits in grooming, UE bathing/dressing, LE bathing/dressing, functional transfers, functional mobility, decreased safety awareness, decreased insight into deficits Complexity in Clinical Decision Making - The extent of clinical reasoning was moderate, several treatment options present for the patient, need for modification during the evaluation was minimal/moderate, comorbidities affecting occupational performance: thyroid, HTN, DM, claudication Self Long-Term Management (01526) Treatment Minutes: 10 1 unit Skilled Intervention(s): Educated on the role of OT in the acute care setting. Educated patient on non weight bearing status for right lower extremity. Instructed patient from supine to sit edge of bed and provided cues for proper hand placement to improve bed mobility. Instructed patient from sit to stand at wheeled walker and provided maximal physical assist and cues for proper hand placement and fall prevention (fall guarding). Patient unable to maintain right lower extremity non weight bearing status and unsteady with heavy posterior lean. Provided cues and physical assist for safe hand placement for stand to sit. Educated pt on fall prevention strategies, reinforcing the use of their call light / up with assistance for functional mobility; Pt left in bed with call light in reach upon OT exit. Educated patient and communicated on whiteboard mobility level 1. Total Timed Code Treatment Minutes: 10 Total Treatment Time (minutes): 35 SUBJECTIVE: Current Hospital Course: Chart reviewed; 79 year old male presents with necrosis of R foot. 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 Plan for possible surgery Friday 08/25 for wound closure/further cut down of right lower extremity. 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 Patient agreeable to therapy. I have no pain at all." Denies pain before/after transfers. 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(dtr) Entry To Home: Stairs;With Rail(bilat rails) Number Of Stairs Into Home: 4 Number Of Stairs To Bed/Bath: 0 Tub/Shower Type: walk in shower Laundry: main level Equipment Owned: Rollator;Wheelchair Prior Functional Level: Required Assistance;Within Functional Limits Assistance Required With: Cleaning Prior Functional Level Comments: pt independent without devices and completed ADLs OBJECTIVE: Cognition/Communicatio n Deficits Responsiveness: Alert;Awake Follows Commands: 2-step Commands Executive Function Deficits: Safety Awareness;Insight to Deficits Insight to Deficits: Minimal impairment Safety Awareness Deficit: Moderate impairment CURRENT FUNCTIONAL STATUS: Current Activities of Daily Living Assist Level Feeding Set Up Grooming Minimal Assistance Bathing Upper Body Minimal Assistance Bathing Lower Body Maximal Assistance Dressing Upper Body Minimal Assistance Dressing Lower Body Maximal Assistance Toileting Maximal Assistance Functional Mobility Assist Level Rolling Supine to Sit Minimal Assistance(HOB fully elevated) Sit to Supine Minimal Assistance Scooting Sit to Stand Maximal Assistance(unable to maintain weight bearing ) Stand to Sit Maximal Assistance Hand Dominance: Left Range of Motion: WFL Strength: Strength Limitation Comments Strength Limitation Comments: 4/5 Balance: Static Standing Static Standing Balance: Poor Patient requires handhold support and moderate to maximal assistance to maintain position Please see discipline specific clinical documentation flowsheet for complete details for this therapy evaluation/treatment. SIGNATURE: Susan Miner OTR/L PATIENT NAME: Elizabeth Modi DATE: August 24, 2019 TIME: 1:01 PM [facility] ANES [place] 08-23-2019 ANES POST HNO ID: [id number] Author: jS Huizar Service: Anesthesiology Author Type: Physician Type: Anesthesia PostOp Filed: 08/23/2019 11:24 AM Note Text: POST ANESTHESIA EVALUATION NOTE SERVICE DATE: 08/23/2019 SERVICE TIME: 11:24 AM : 1940 Vitals: 08/23/19 0600 08/23/19 0805 08/23/19 0911 08/23/19 1015 Temp: 36.4 ?C (97.5 ?F) 36.9 ?C (98.4 ?F) 36 ?C (96.8 ?F) 36 ?C (96.8 ?F) 08/23/19 0911 08/23/19 0915 08/23/19 0930 08/23/19 1015 BP: 136/83 121/60 148/66 133/65 08/23/19 0930 08/23/19 0945 08/23/19 1000 08/23/19 1015 Pulse: 87 87 88 89 08/23/19 0930 08/23/19 0945 08/23/19 1000 08/23/19 1015 Resp: 19 21 20 19 08/23/19 0930 08/23/19 0945 08/23/19 1000 08/23/19 1015 SpO2: 100% 96% 95% 95% Validated Vital Signs: Yes POST ANES STATUS: No apparent anesthetic complications. The patient is appropriately hydrated with stable respiratory and cardiovascular status. Patient has safe and adequate airway control. The patient has appropriate pain relief and no significant post operative nausea or vomiting. The patient has achieved baseline mental status. Intra-Operative Events: No Significant Anesthesia Events Further assessment by Anesthesia Service: None Other Remarks: SIGNATURE: Sj Huizar DO PATIENT NAME: Elizabeth Modi DATE: August 23, 2019 TIME: 11:24 AM PAGER/CONTACT #: [phone] [facility] ANES PREOPon 08-23-2019 ANES PREOP HNO ID: [id number] Author: Sj Huizar Service: Anesthesiology Author Type: Physician Type: Anesthesia PreOp Filed: 08/23/2019 8:34 AM Note Text: ANESTHESIOLOGY DAY OF SURGERY NOTE SERVICE DATE: 08/23/2019 SERVICE TIME: 7:52 AM : 1940 Procedure(s) (LRB): GUILLOTINE AMPUTATION OF RIGHT FOOT (Right) Surgeon(s): Gordo Figueroa Estimated body mass index is 26.89 kg/m? as calculated from the following: Height as of this encounter: 177.8 cm (5' 10"). Weight as of this encounter: 85 kg (187 lb 6.3 oz). Most recent hematocrit and potassium results: Hematocrit 31.0 08/23/2019 Potassium 3.8 08/23/2019 ANES DOS/PREOP NOTE: Vitals: 08/22/19 2113 08/23/19 0131 08/23/19 0600 08/23/19 0805 BP: (!) 128/48 110/68 117/59 143/84 Pulse: 79 82 80 Resp: 18 18 18 16 Temp: 36.4 ?C (97.5 ?F) 36.6 ?C (97.9 ?F) 36.4 ?C (97.5 ?F) 36.9 ?C (98.4 ?F) TempSrc: Oral Oral Temporal Temporal SpO2: 95% 95% 94% 97% Weight: Height: ACTIVE PROBLEM LIST Gangrene of Foot (Hcc) Diabetes (Hcc) Htn (Hypertension) Dyslipidemia Hypothyroidism Malnutrition of Moderate Degree (Hcc) PAST MEDICAL HISTORY Diagnosis Date - DM (diabetes mellitus) (HCC) - Dyslipidemia - HTN (hypertension) - Hypothyroidism No past surgical history on file. No family history on file. Social History: Social History Tobacco Use - Smoking status: Not on file Substance Use Topics - Alcohol use: Not on file - Drug use: Not on file No current facility-administered medications on file prior to encounter. Current Outpatient Medications on File Prior to Encounter Medication Sig - atorvastatin (LIPITOR) 40 mg tablet Take 40 mg by mouth once daily. - levothyroxine (SYNTHROID) 25 mcg tablet Take 25 mcg by mouth once daily. - lisinopril (ZESTRIL, PRINIVIL) 10 mg tablet Take 10 mg by mouth once daily. - pioglitazone (ACTOS) 30 mg tablet Take 30 mg by mouth once daily. - metFORMIN (GLUCOPHAGE) 1,000 mg tablet Take 1,000 mg by mouth twice daily. - glimepiride (AMARYL) 4 mg tablet Take 4 mg by mouth twice daily. Current Facility-Administered Medications Medication Dose Route Frequency Provider Last Rate Last Dose - [MAR Hold due to Transfer] dextrose 5% in NaCl 0.45% with 20 mEq/L KCl iv infusion 80 mL/hr INTRAVENOUS CONTINUOUS Tom (Res) DO [place] - [MAR Hold due to Transfer] magnesium sulfate in sterile water 4 g iv piggyback 4 g INTRAVENOUS ONCE Sue Bianchi - [MAR Hold due to Transfer] potassium phosphate 30 mmol in NaCl 0.9% 250 mL 30 mmol INTRAVENOUS ONCE Sue Bianchi - [MAR Hold due to Transfer] magnesium sulfate in sterile water 4 g iv piggyback 4 g INTRAVENOUS ONCE Litzy Rojas MD - [MAR Hold due to Transfer] heparin 5,000 Units injection 5,000 Units SUBCUTANEOUS q 12 H Mohammad F Yarsani 5,000 Units at 08/22/19 0807 - [MAR Hold due to Transfer] aluminum-magnesium hydroxide-simethicone 200-200-20 mg/5 mL 30 mL (MAALOX,MYLANTA,MAG-AL PLUS) 30 mL ORAL DAILY PRN Mohammad F Yarsani - [MAR Hold due to Transfer] ondansetron 4 mg tab(s) (ZOFRAN) 4 mg ORAL q 6 H PRN Mohammad F Yarsani Or - [MAR Hold due to Transfer] ondansetron (PF) 4 mg injection (ZOFRAN) 4 mg INTRAVENOUS q 6 H PRN Mohammad F Yarsani - [MAR Hold due to Transfer] polyethylene glycol 3350 17 g packet (MIRALAX, GLYCOLAX) 17 g ORAL DAILY PRN Mohammad F Yarsani - [MAR Hold due to Transfer] docusate sodium 100 mg cap(s) (COLACE) 100 mg ORAL BID PRN Mohammad F Yarsani - [MAR Hold due to Transfer] magnesium hydroxide 400 mg/5 mL 30 mL (MOM) 30 mL ORAL DAILY PRN Mohammad F Yarsani - [MAR Hold due to Transfer] bisacodyl 10 mg suppository (DULCOLAX) 10 mg RECTAL DAILY PRN Mohammad F Yarsani - [MAR Hold due to Transfer] acetaminophen 650 mg tab(s) (TYLENOL) 650 mg ORAL q 6 H PRN Mohammad F Yarsani - [MAR Hold due to Transfer] atorvastatin 40 mg tab(s) (LIPITOR) 40 mg ORAL DAILY Mohammad F Yarsani 40 mg at 08/22/192009 - [MAR Hold due to Transfer] lisinopril 10 mg tab(s) (ZESTRIL, PRINIVIL) 10 mg ORAL DAILY Mohammad F Yarsani 10 mg at 08/22/19 0807 - [MAR Hold due to Transfer] levothyroxine 25 mcg tab(s) (SYNTHROID) 25 mcg ORAL DAILY Mohammad F Yarsani 25 mcg at 08/22/19 0600 - [MAR Hold due to Transfer] insulin lispro pen (rapid acting) (HumaLOG KWIKPEN) SUBCUTANEOUS w MEALS AND HS Mohammad F Yarsani 1 Units at 08/22/192128 - [MAR Hold due to Transfer] dextrose 40 % 15 g 15 g ORAL PRN Mohammad F Yarsani Or - [MAR Hold due to Transfer] glucagon 1 mg injection (GLUCAGEN) 1 mg INTRAMUSCULAR PRN Mohammad F Yarsani Or - [MAR Hold due to Transfer] dextrose 50% in water 25 mL syringe 12.5 g INTRAVENOUS PRN Mohammad F Yarsani - [MAR Hold due to Transfer] vancomycin iv piggyback 1.25 g in D5W 250 mL (VANCOCIN) 1.25 g INTRAVENOUS q 12 HR Mohammad F Yarsani 250 mL/hr at 08/22/192009 1.25 g at 08/22/192009 - [MAR Hold due to Transfer] vancomycin dosing and monitoring per pharmacy OTHER As Directed Mohammad F Yarsani - [MAR Hold due to Transfer] piperacillin-tazobacta m iv piggyback 3.375 g in dextrose (iso-osmotic) 50 mL (ZOSYN) 3.375 g INTRAVENOUS q 6 H Mohammad F Yarsani 100 mL/hr at 08/23/19 0549 3.375 g at 08/23/19 0549 - [MAR Hold due to Transfer] clindamycin iv piggyback 600 mg in D5W 50 mL (CLEOCIN) 600 mg INTRAVENOUS q 6 H Mohammad F Yarsani 100 mL/hr at 08/23/19 0549 600 mg at 08/23/19 0549 Allergies: ALLERGIES No Known Allergies DOS EXAM: Adequate NPO status: Yes Anesthetic risks, benefits, alternatives, personnel and consent discussed: Yes Patient agrees to proceed: Yes Previous Anesthesia: No history of adverse event. Airway Assessment: MP 2; Neck ROM: Full ROM without neurologic symptoms; Airway Evaluation: No significant abnormalities Symptoms of Sleep Apnea: Hypertension, Age over 50 (79 year old) and Male gender Dentition: Edentulous Additional Physical Exam: Lungs: Patient health status unchanged since recent history and physical. See history and physical for exam findings. Cardiac: Patient health status unchanged since recent history and physical. See history and physical for exam findings. Additional Pertinent Findings: N/A Blood Products: Not anticipated for this procedure. Anesthetic Plan: General, Standard ASA Monitors Pain Management Plan: Parenteral or Oral ASA Class: 3 Other Medical Problems: some electrolyte derangements. Will replace his magnesium intraoperatively as it was 0.9 today. Chronic Beta Nicole medication administered within 24 hours: N/A I have interviewed and examined the patient. I have reviewed the medical record and/or the pre-anesthesia evaluation, pertinent labs, and test results. Significant changes in the patient's condition since the History and Physical, not otherwise documented in primary service progress notes: No This contains updated information obtained within 48 hours of Surgery/Procedure. SIGNATURE: Sj Huizar DO PATIENT NAME: Elizabeth Modi DATE: August 23, 2019 TIME: 8:32 AM CSN: [id number] Normal [facility] BRIEF OP NOTon 08-23-2019 BRIEF OP NOT HNO ID: [id number] Author: Jennifer Crooks Service: General Surgery Author Type: Resident Type: Brief Op Note Filed: 08/23/2019 9:35 AM Note Text: Attestation signed by Gordo Figueroa at 08/23/2019 10:01 AM I was present for the entire procedure and performed the procedure with the assistance of the resident and the assistant store manager operations BRIEF OP / PROCEDURE NOTE LOG ID: [id number] Surgery/Procedure Date: 08/23/2019 Incision/Procedure Start Time: 8:42 AM Incision Close/Procedure End Time: 9:04 AM Surgeon(s)/Procedurali st(s) and Senior Advocate(s): Surgeon(s) and Role: * Gordo Figueroa - Primary No Additional Staff Procedure(s): 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 Anesthesia: Monitored Anesthesia Care Findings: multiple infected, necrotic infection wounds over right foot; wet gangrene Estimated Blood Loss: 5 cc/ml Abx: vanc/zosyn/clinda Specimens Removed: Yes, Right foot was sent to surgical pathology Drains: None Complications: None PRE-OP/PRE-PROCEDURE DIAGNOSIS: severe PVD, wet gangrene R foot POST-OP/POST-PROCEDURE DIAGNOSIS: Same as Preop SIGNATURE: Jennifer Crooks MD PATIENT NAME: Elizabeth Modi DATE: August 23, 2019 TIME: 9:29 AM PAGER/CONTACT #: Normal [facility] Basic Panelon 08-23-2019 Creatinine [Mass/Vol] 0.88 mg/dL Normal 0.67-1.17 [facility] Comment on above: Result Comment: Use of this assay is not recommended for patients undergoing treatment with phenindione, due to the potential for falsely depressed results. Performed By: #### P 8 #### [address] [address] Glucose [Mass/Vol] 96 mg/dL Normal 70-99 [facility] Comment on above: Performed By: #### P 8 #### [address] [address] Anion gap [Moles/Vol] 12 mmol/L Normal 8-16 [facility] Comment on above: Performed By: #### P 8 #### [address] [address] Calcium [Mass/Vol] 7.2 mg/dL Low 8.5-10.1 [facility] Comment on above: Performed By: #### P 8 #### [facility] [address] [place], [place] [address] CO2 [Moles/Vol] 22 mmol/L Normal 21-32 [facility] Comment on above: Performed By: #### P 8 #### [facility] [address] [place], [place] [address] Urea nitrogen [Mass/Vol] 15 mg/dL Normal 7-18 [facility] Comment on above: Performed By: #### P 8 #### [facility] 1 [place], [place] [address] Chloride [Moles/Vol] 103 mmol/L Normal 98-107 [facility] Comment on above: Performed By: #### P 8 #### [facility] 1 [place], [place] [address] Potassium [Moles/Vol] 3.8 mmol/L Normal 3.5-5.1 [facility] Comment on above: Performed By: #### P 8 #### [facility] [address] [place], [place] [address] Sodium [Moles/Vol] 133 mmol/L Low 136-145 [facility] Comment on above: Performed By: #### P 8 #### [facility] [address] [place] [address] CASE MGT INIT ASSESon 2019 CASE MGT INIT ASSES HNO ID: [id number] Author: Tami SantiagoRn) KAVIN Patricio Service: Care Management Author Type: Registered Nurse Type: Care Mgt Initial Assessment Filed: 08/23/2019 3:20 PM Note Text: CARE MANAGEMENT: ASSESSMENT AND DISCHARGE PLAN SERVICE DATE: August 23, 2019 SERVICE TIME: 3:18 PM PRIMARY CARE PHYSICIAN: No primary care provider on file. Phone: None ADMISSION STATUS: Inpatient Needs Prior to Discharge: OT/PT Evaluation;Discharge Transportation;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 Last discharge within 30 days: No Advance Directive: Current Advance Directive: None Community Health Educator Attempted to Assist with AD Completion: Yes Action: Education Provided Health LiteracyHow often do you need to have someone help you when you read instructions, pamphlets, or other written material from your doctor or pharmacy? : 1 - Never How confident are you filling out medical forms by yourself?: 1 - Extremely If Patient scores > 3 on either question, the following interventions were put into place:: Patient did not score > 3 on either question. Baseline Mental Status Prior to this Illness what was the patient's Baseline Mental Status?: Alert AND Oriented Prior to this illness, has anyone described the patient having any of the following behaviors?: Not Applicable Relationship of the informant to the patient:: Self Name of Informant: : Angelic Functional Status: Independent Does Patient Currently Receive Any Community Services or Home Care?: None Equipment Prior to Admission: Cane;Walker;Wheelchair SOCIAL: Living Arrangements: Home Lives With: Alone Financial Resources: RetiredPrimary Contact: Extended Emergency Contact Information Primary Emergency Contact: Angelic Sue Mobile Relation: Daughter Supportive Patient Contact:: Yes Social Needs Food insecurity Worry: Patient refused Inability: Patient refused Resources Needed: No Social Needs Financial resource strain: Not very hard Social Needs Transportation needs Medical: Patient refused Non-medical: Patient refused Caregiver AssessmentCaregiver is ready, willing and able to meet the patient's needs as recommended by the inter-professional team:: No Does the patient have an acute stroke diagnosis, or has the patient had a stroke during this admission?: No Patient's transition needs and plan for meeting these needs: Anticipate AR Patient's perception of need for this admission: . Medication Adherance I am convinced of the importance of my prescription medication: 0 - Agree Mostly I worry that my prescription medication will do more harm than good to me : 0 - Disagree Mostly I feel financially burdened by my [id number] expenses for my prescription medication:: 0 - Agree Somewhat Risk Score: 0 Patient is categorized as: Low risk < 2 Are you interested in bedside delivery of your medications? No Is Patient Psychosocially Complex?: No ASSESSMENT AND PLAN: Medical Needs: Medical Needs: None Psychosocial Needs: Psychosocial Needs: None FREEDOM OF CHOICE EXPLAINED: [place] of Choice Given: Yes Level of Care Discussed: Inpatient Rehab Facility Financial Disclosure Provided: Yes Financial Disclosure Comments: ESR Provider List: (Pt refused list- would like [facility]. ) POTENTIAL TRANSITION PLANS Rehab Facility Spoke with pt at the bedside. Pt states that he lives at home alone indept FILTER TENDER JELLY, but he states that his daughter Nina assists as needed. Pt states that he has a PCP in [place]. Pt is s/p right foot amp. Anticipate AR needs at d/c. Await PT/OT evals. Pt would like [facility] rehab- referral sent. Pt will need auth and likely transport at d/c. Will follow. SIGNATURE: Tami Patricio RN PATIENT NAME: Elizabeth Modi DATE: August 23, 2019 TIME: 3:18 PM PAGER/CONTACT #: [phone] [facility] CONSULTon 08-23-2019 CONSULT HNO ID: [id number] Author: Doris Eden Service: Endocrinology Author Type: Physician Type: Consults Filed: 08/23/2019 1:21 PM Note Text: I have reviewed the patient's medical record in detail. Consult note dictated. See orders for Lantus/oral agents. Can use OTC Novolin N at home. Doris Eden MD. [facility] CONSULT HNO ID: [id number] Author: Doris Eden Service: Endocrinology Author Type: Physician Type: Consults Filed: 08/25/2019 9:16 AM Note Text: [facility] - Consultation PATIENT NAME: ELIZABETH MODI CSN: [id number] DATE OF : 1940 SEX/AGE: M/79 PATIENT TYPE: I HOSP [facility]: ORAL LOCATION: [id number] DATE OF SERVICE: 08/23/2019 TIME OF SERVICE: 01:15 PM REFERRING PHYSICIAN: Dexter Chávez MD REASON FOR CONSULTATION: Uncontrolled diabetes. HISTORY OF PRESENT ILLNESS: The patient is a 79-year-old male, who was transferred from [facility] with gangrene off right foot toes. Patient had right below-knee amputation today. Reviewed the chart and also obtained history from patient. Regarding diabetes, patient was diagnosed with diabetes 37 years ago. He states he has been on oral agents for a long time. He used to be on insulin for 6 to 7 years and has been off insulin for last several years since he could not afford it. He does not remember the exact duration. He checks his blood sugar once a day and they are 120s to 150s. He takes Amaryl and metformin at home. He does not check his sugars in the evening. His A1c on admission is 9.8. Patient states that he has had weight loss gradually. He does not have any numbness or tingling in his left foot. He does not have any eye complications of diabetes. Patient is not aware of any kidney problems from diabetes. PAST MEDICAL HISTORY: History of type 2 diabetes, history of hypertension, history of hyperlipidemia, history of hypothyroidism. FAMILY HISTORY: Positive for diabetes in his father. SOCIAL HISTORY: No history of smoking or alcohol use. REVIEW OF SYSTEMS: As per History of Present Illness, otherwise negative. PHYSICAL EXAMINATION: GENERAL: Patient is lying in bed, no acute distress. VITAL SIGNS: Height 5 feet 10 inches, weight is 187 pounds. Afebrile. Vital signs are stable. SKIN: Warm and dry. No ulcers or calluses noticed on his left foot. No rash. EYES: Pupils appear round. NECK: Supple. No goiter palpable on thyroid exam. LUNGS: Clear to auscultation. CVS: Regular rate and rhythm. ABDOMEN: Soft. EXTREMITIES: There is no edema. Pedal pulses are poorly palpable in the left foot. NEUROLOGIC: Patient has normal strength on neurological exam. LABORATORY DATA: Sodium 133, potassium 3.8, chloride 103, CO2 of 22, BUN 15, creatinine 0.83. Blood sugars yesterday, 222, 163, 114, and 182; this morning, 121 and 134. HbA1c 9.8. CLINICAL IMPRESSION: 1. Diabetes mellitus type 2, uncontrolled with high HbA1c of 9.8%. Patient is on Amaryl and metformin. He was on Lantus insulin, which he states he could not afford in the past. His fasting sugars at home are 120s to 150s and he does not check it at home in the evening. His admission blood sugar was 218 yesterday morning. Now, his blood sugars are better since he is fasting, but he is going to be started on diet now. 2. 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 3. Hypothyroidism. Patient is on low-dose levothyroxine 25 mcg daily per his PCP. RECOMMENDATION: 1. We will continue to monitor the blood sugars before meals and at bedtime and continue carb-controlled diet. 2. I will resume his home medications Amaryl 4 mg daily and metformin 1 g b.i.d. starting today. 3. I will start him on programmed Lantus 10 units at bedtime. 4. I will start him on sliding scale Humalog before meals only, but not at bedtime. We will monitor his blood sugars and adjust the insulin doses as needed. 5. I discussed with patient that he can take Novolin N if he has difficulty affording Lantus 10. Doris Eden MD Endocrinology SM:shima /[id number] [facility] CONSULT PROGon 08-23-2019 CONSULT PROG HNO ID: [id number] Author: Isac Navarro (Pharmacist) Service: Pharmacy Author Type: Pharmacist Type: Consult Progress Note Filed: 08/23/2019 7:37 PM Note Text: PHARMACY VANCOMYCIN DOSING NOTE Patient Name: Elizabeth Modi Admission Date: 08/21/2019 Date of Consult: 08/23/2019 Time of Consult: 7:31 PM Indication: Skin/Soft tissue infection Goal Range: 10-20 mcg/mL RECOMMENDATIONS/PLAN: Pharmacy consulted for vancomycin dosing for Elizabeth Modi, a 79 year old, male who is being treated with vancomycin for S/STI 1. Patient is currently ordered Vancomycin 1.25 g IV q12h. Today is day 2 of therapy . 2. The most recent vancomycin level was 22.0 mcg/mL drawn at 18:30 on 08-23-2019. This is a 11 hour level on the 2nd day of therapy. 3. Will decrease vancomycin to 1.25 g with a dosing interval of q24h for this 79 YO patient 4. The next vancomycin level will be ordered for 08-27-2019 at 07:00 before 4th dose of new regimen unless clinically indicated sooner. (Pharmacy will order) We will follow patient renal function, vancomycin levels and doses with you during the course of therapy. Additional recommendations will appear in follow up notes. If you have [place] [phone]. Age: [age] year old Allergies: ALLERGIES No Known Allergies Last 3 Encounter Wt Readings: Date: Wt: 08/21/2019 85 kg (187 lb 6.3 oz) Last 1 Encounter Ht Readings: Date: Ht: 08/21/2019 177.8 cm (5' 10") CrCl: 71.4 mL/min Temp (24hrs), Av.4 ?C (97.6 ?F), Min:36 ?C (96.8 ?F), Max:36.9 ?C (98.4 ?F) - Current Temp: 36.7 ?C (98.1 ?F) Labs BUN (mg/dL) Date Value 08/23/2019 15 08/22/2019 31 (H) Creatinine (mg/dL) Date Value 08/23/2019 0.88 08/22/2019 0.95 WBC (thou/cmm) Date Value 08/23/2019 18.79 (H) 08/22/2019 19.76 (H) Vancomycin Levels: Vancomycin,Random (mg/L) Date/Time Value 08/23/2019 1830 22.0 BHUPINDER CHEEK Normal [facility] CONSULT PROG HNO ID: [id number] Author: Paulo Landis Service: Infectious Disease Author Type: Physician Type: Consult Progress Note Filed: 08/23/2019 3:55 PM Note Text: PROGRESS NOTE INFECTIOUS DISEASE SERVICE DATE: 08/23/2019 SERVICE TIME: 3:49 PM BRIEF SUMMARY: 79M DM2, HTN, chronic intermittent claudication, hypothyroidism, presented with R foot gangrene for 1.5 weeks. ASSESSMENT: 1. 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 Await full op report 2. DM2 uncontrolled 3. Severe PAD Estimated Creatinine Clearance: 71.4 mL/min (based on SCr of 0.88 mg/dL). RECOMMENDATIONS: - Nasal MRSA screen - Cont vanco #2 - If MRSA nasal neg and swab continues to be neg for MRSA, d/c vancomycin - d/c zosyn - d/c clindamycin - Start unasyn - Plan for transition to Augmentin 875mg PO BID x 14 days total when able to be discharged Dr Regan Paredes is available over the weekend if there is any question SUBJECTIVE: Interval Events: Doing well after surgery Medications: Current Facility-Administered Medications Medication Dose Route Frequency - heparin 5,000 Units injection 5,000 Units SUBCUTANEOUS q 12 H - aluminum-magnesium hydroxide-simethicone 200-200-20 mg/5 mL 30 mL (MAALOX,MYLANTA,MAG-AL PLUS) 30 mL ORAL DAILY PRN - ondansetron 4 mg tab(s) (ZOFRAN) 4 mg ORAL q 6 H PRN Or - ondansetron (PF) 4 mg injection (ZOFRAN) 4 mg INTRAVENOUS q 6 H PRN - polyethylene glycol 3350 17 g packet (MIRALAX, GLYCOLAX) 17 g ORAL DAILY PRN - docusate sodium 100 mg cap(s) (COLACE) 100 mg ORAL BID PRN - magnesium hydroxide 400 mg/5 mL 30 mL (MOM) 30 mL ORAL DAILY PRN - bisacodyl 10 mg suppository (DULCOLAX) 10 mg RECTAL DAILY PRN - acetaminophen 650 mg tab(s) (TYLENOL) 650 mg ORAL q 6 H PRN - atorvastatin 40 mg tab(s) (LIPITOR) 40 mg ORAL DAILY - lisinopril 10 mg tab(s) (ZESTRIL, PRINIVIL) 10 mg ORAL DAILY - levothyroxine 25 mcg tab(s) (SYNTHROID) 25 mcg ORAL DAILY - dextrose 40 % 15 g 15 g ORAL PRN Or - glucagon 1 mg injection (GLUCAGEN) 1 mg INTRAMUSCULAR PRN Or - dextrose 50% in water 25 mL syringe 12.5 g INTRAVENOUS PRN - vancomycin iv piggyback 1.25 g in D5W 250 mL (VANCOCIN) 1.25 g INTRAVENOUS q 12 HR - vancomycin dosing and monitoring per pharmacy OTHER As Directed - piperacillin-tazobacta m iv piggyback 3.375 g in dextrose (iso-osmotic) 50 mL (ZOSYN) 3.375 g INTRAVENOUS q 6 H - magnesium sulfate in sterile water 4 g iv piggyback 4 g INTRAVENOUS ONCE - magnesium sulfate in sterile water 4 g iv piggyback 4 g INTRAVENOUS ONCE - dextrose 5% in NaCl 0.45% with 20 mEq/L KCl iv infusion 80 mL/hr INTRAVENOUS CONTINUOUS - gabapentin 100 mg cap(s) (NEURONTIN) 100 mg ORAL q 8 H - [START ON 08/24/2019] metoprolol succinate ER 25 mg tab(s) (TOPROL XL) 25 mg ORAL DAILY - insulin lispro pen (rapid acting) (HumaLOG KWIKPEN) SUBCUTANEOUS w MEALS - [START ON 08/24/2019] glimepiride 4 mg tab(s) (AMARYL) 4 mg ORAL DAILY WITH BREAKFAST - metFORMIN 1,000 mg tab(s) (GLUCOPHAGE) 1,000 mg ORAL BID w MEALS - insulin glargine 10 Units pen (long acting) (LANTUS SOLOSTAR, BASAGLAR KWIKPEN) 10 Units SUBCUTANEOUS AT BEDTIME OBJECTIVE: Physical Exam: BP 126/64 Pulse 73 Temp 36.5 ?C (97.7 ?F) (Oral) Resp 18 Ht 177.8 cm (5' 10") Wt 85 kg (187 lb 6.3 oz) SpO2 99% BMI 26.89 kg/m? GENERAL APPEARANCE: Comfortable RLE BKA wrapped Lab data: WBC (thou/cmm) Date Value 08/23/2019 18.79 08/22/2019 19.76 Platelet Count (thou/cmm) Date Value 08/23/2019 421 08/22/2019 380 Creatinine (mg/dL) Date Value 08/23/2019 0.88 08/22/2019 0.95 AST (U/L) Date Value 08/22/2019 81 ALT (U/L) Date Value 08/22/2019 73 Microbiology data: Reviewed DATA: Diagnostic Tests Reviewed for Today's Visit: Most recent labs Paulo Landis MD Infectious Disease Respiratory [place] Pager: [phone] August 23, 2019 Normal [facility] Hemogram/Diffon 08-23-2019 Abs Immature Grans 0.19 thou/cmm High 0.00-0.05 [facility] Comment on above: Performed By: #### M AG #### [place] [address] Abs Neut (ANC) 15.52 thou/cmm High 1.78-5.38 [facility] Comment on above: Performed By: #### M AG #### [place] [address] Abs. Baso 0.04 thou/cmm Normal 0.01-0.08 [facility] Comment on above: Result Comment: Smea r scanned; tech agrees with automated differential Performed By: #### M AG #### [place] [address] Abs. [place] 1.45 thou/cmm High 0.30-0.82 [facility] Comment on above: Performed By: #### M AG #### [facility] [address] [place], [place] [address] Basophils/100 WBC (Bld) 0.2 % Normal [facility] Comment on above: Performed By: #### M AG #### [facility] [address] [place], [place] [address] Eosinophils (Bld) [#/Vol] 0.21 thou/cmm Normal 0.04-0. 54 [facility] Comment on above: Performed By: #### M AG #### [facility] [address] [place], [place] [address] Eosinophils/100 WBC (Bld) 1.1 % Normal [facility] Comment on above: Performed By: #### M AG #### [facility] [address] [place], [place] [address] Immature Grans 1.00 % Normal [facility] Comment on above: Performed By: #### M AG #### [facility] [address] [place], [place] [address] Lymphocytes (Bld) [#/Vol] 1.39 thou/cmm Normal 0.84-2. 85 [facility] Comment on above: Performed By: #### M AG #### [facility] [address] [place], [place] [address] Lymphocytes/100 WBC (Bld) 7.4 % Normal [facility] Comment on above: Performed By: #### M AG #### [facility] [address] [place], [place] [address] Monocytes/100 WBC (Bld) 7.7 % Normal [facility] Comment on above: Performed By: #### M AG #### [facility] [address] [place], [place] [address] Seg Neutrophil 82.6 % Normal [facility] Comment on above: Performed By: #### M AG #### [facility] [address] [place], [place] [address] Erythrocyte distribution width (RBC) [Ratio] 13.2 % Normal 11.6-14.4 [facility] Comment on above: Performed By: #### M AG #### [facility] [address] [place] [address] Hematocrit (Bld) [Volume fraction] 31.0 % Low 40.1-51.0 [facility] Comment on above: Performed By: #### M AG #### [facility] [address] [place] [address] Hemoglobin (Bld) [Mass/Vol] 10.2 g/dL Low 13.7-17.5 [facility] Comment on above: Performed By: #### M AG #### [facility] [address] [place] [address] MCH (RBC) [Entitic mass] 28.7 pg Normal 25.7-32.2 [facility] Comment on above: Performed By: #### M AG #### [facility] [address] [place] [address] MCHC (RBC) [Mass/Vol] 32.9 % Normal 32.3-36.5 [facility] Comment on above: Performed By: #### M AG #### [facility] [address] [place] [address] MCV (RBC) [Entitic vol] 87.1 fL Normal 83.2-95.6 [facility] Comment on above: Performed By: #### M AG #### [facility] [address] [place] [address] Platelet mean volume (Bld) [Entitic vol] 9.6 fL Normal 8.7-12.0 [facility] Comment on above: Performed By: #### M AG #### [facility] [address] [place] [address] Platelets (Bld) [#/Vol] 421 thou/cmm High 141-365 [facility] Comment on above: Performed By: #### M AG #### [facility] 1 [place] [id number] RBC (Bld) [#/Vol] 3.56 mil/cmm Low 4.63-6.08 [facility] Comment on above: Performed By: #### M AG #### [facility] [address] [place] [address] RDW SD 42.0 fl Normal 36.1-45.8 [facility] Comment on above: Performed By: #### M AG #### [facility] [address] [place] [address] WBC (Bld) [#/Vol] 18.79 thou/cmm High 4.23-9.07 [facility] Comment on above: Performed By: #### M AG #### [place] [address] Hgb A1con 08-23-2019 HbA1c (Bld) [Mass fraction] 9.8 % High 4.2-6.3 [facility] Comment on above: Result Comment: Meth od is National Glycohemoglobin Standardization Program (NGSP) compliant. Performed By: #### M AG #### [place] [address] HbA1c (Bld) [Mass fraction] 235 mg/dl Normal [facility] Comment on above: Performed By: #### M AG #### [place] [address] MRSA Screenon 08-23-2019 MRSA DNA ARIELLE+probe Ql (Unsp spec) Test performed at [facility] No MRSA detected. Normal [facility] Comment on above: Performed By: #### F ERR #### [place] [address] Magnesium Bloodon 08-23-2019 Magnesium [Mass/Vol] 0.9 mg/dL Critically low 1.6-2.6 [facility] Comment on above: Performed By: #### M AG #### [place] [address] NURSING PROGon 08-23-2019 NURSING PROG HNO ID: [id number] Author: Karl SantiagoRn) KAVIN Russell Service: Nursing Author Type: Registered Nurse Type: Nursing Progress Note Filed: 08/23/2019 9:27 AM Note Text: Fall risk protocol initiated. Fall risk wrist band applied and yellow sock applied to left foot. SR up x2. Call light in reach. Urinal offered. Normal [facility] NURSING PROG HNO ID: [id number] Author: Marita SantiagoRn) KAVIN Aponte Service: Nursing Author Type: Registered Nurse Type: Nursing Progress Note Filed: 08/23/2019 8:09 AM Note Text: Tech here to take pt to presurgery unit . Pt showing no signs of distress voicing no complaints. Pt taken via cart to presurgery unit Normal [facility] NURSING PROG HNO ID: [id number] Author: Marita SantiagoRn) KAVIN Aponte Service: Nursing Author Type: Registered Nurse Type: Nursing Progress Note Filed: 08/23/2019 8:07 AM Note Text: Report given to presurg RN. Daughter Margaret notified by phone that pt would be going to surgery soon. Daughter states she is"on her way". Daughter informed on phone that pt would probably be in surgery when she gets here. Daughter states ubderstanding Normal [facility] NURSING PROG HNO ID: [id number] Author: Marita Izquierdo) KAVIN Aponte Service: Nursing Author Type: Registered Nurse Type: Nursing Progress Note Filed: 08/23/2019 8:11 AM Note Text: Dr. Figueroa into see pt. Dr. Figueroa informing pt that surgery has been moved up to this morning. Pt states understanding. Normal [facility] OPERATIVE NOon 08-23-2019 OPERATIVE NO HNO ID: [id number] Author: Gordo Figueroa Service: Vascular Surgery Author Type: Physician Type: Operative Report Filed: 08/23/2019 1:07 PM Note Text: [facility] - Operative Report ELIZABETH MODI : 1940 AGE: 79. SEX: M PATIENT TYPE: I HOSP SVC: ORCA LOCATION: [facility] ATTENDING PHYSICIAN: Ara Singer M.D. CSN NUMBER: [id number] DATE OF SURGERY/PROCEDURE: 08/23/2019 INCISION/PROCEDURE START TIME: 8:42 AM INCISION CLOSE/PROCEDURE END TIME: 9:04 AM PREOPERATIVE DIAGNOSIS: Gangrenous changes of the right foot with gas in the subcutaneous tissues. POSTOPERATIVE DIAGNOSIS: Gangrenous changes of the right foot with gas in the subcutaneous tissues. SURGEON: Gorod Figueroa MD GALVANOMETER ASSEMBLER: 1. Jennifer Crooks M.D. 2. Irvin Walker, assistant store manager operations. SURGERY/PROCEDURE: Guillotine right above ankle/below-knee amputation. ANESTHESIA: General. HISTORY: This is a gentleman we have been following and was found last night upon debridement of his foot to have gas in the subcutaneous tissues and now today this morning seems to be progressing to some edema and erythema at the level of the ankle. In addition to this, in examining the debridement site from last night, the tissue in the arch of the foot is necrotic and there was no way that an amputation could be salvaged at the foot level. Plan at this point in time is to do a guillotine amputation today and early next week do an arteriogram with possible intervention to improve circulation and then later do a definitive below-knee amputation if we can improve the circulation. We have discussed this with the patient this morning. He is aware of what we are planning and he is in agreement as he realizes there is nothing that can be done to salvage his foot. DESCRIPTION OF PROCEDURE: With the patient in supine position under adequate general anesthesia, appropriate area of the leg was prepped and draped in a sterile fashion. We marked a circular incision just above the level of the ankle and then anesthetized that area down to the bone with 1% local with epinephrine. Once this was accomplished, we went ahead and performed the incision. This incision was carried circumferentially down to the fibula posterior and the tibia anterior medially and laterally. Once we were able to do this, we used a septal elevator to clear the periosteum and once periosteum was cleared, a Gigli saw was used to transect the tibia. The tissue between the tibia and fibula was isolated and transected with Bovie electrocautery. Clamps were placed on the neurovascular bundles for the anterior tibial and posterior tibial arteries. We did identify a peroneal artery neurovascular bundle at this level. We went ahead and proceeded to use suture ligatures on these. There was not significant pulsatile bleeding through either of these vessels. At this point, once these were suture ligated, we went ahead and used a Gigli saw to sharply transect the fibula. Once the fibula was transected, we used bone cutters to flatten the edges of the transected surface and then a rasp was used to clear any sharp edges on the tissue. Hemostasis was now obtained in the subcutaneous tissues with cautery and ties and once this was done, we went ahead and placed Xeroform gauze over the open wound. After the Xeroform gauze was placed, dry fluffs were placed and then a sterile Kerlix wrap placed. An Jero wrap was then placed over this. Sponge and needle counts were correct at the end of the case. There were no intraoperative complications. The patient was returned to the recovery area in stable condition. Gordo Figueroa MD DJW:[id number] /[id number] Normal [facility] PROGRESSon 08-23-2019 PROGRESS HNO ID: [id number] Author: Sue Bianchi Service: Hospital Medicine Author Type: Physician Type: Progress Notes Filed: 08/23/2019 3:48 PM Note Text: DEPARTMENT OF HOSPITAL MEDICINE PROGRESS NOTE SERVICE DATE: 08/23/2019 SERVICE TIME: 12:20 PM Hospital Medicine/Primary Attending: Sue Bianchi, DO NIGHT AND WEEKEND COVERAGE: After 7pm, please call cross cover pager #[phone] Subjective INTERVAL HPI: Patient seen and examined. Worsening infection and patient went for amputation this morning. No pain currently and about to eat lunch. Family at bedside. Denies chest pain or SOB. MEDICATIONS: Reviewed Objective PHYSICAL EXAM: BP 126/64 Pulse 73 Temp (Src) 97.7 (Oral) Resp 18 Ht 5' 10" (1.78m) Wt 187 lb 6.3 oz (85.0kg) SpO2 99% BMI 26.89 kg/(m2). O2 Therapy: Nasal Cannula, Liters: 2 Physical Exam Performed Constitutional - Vitals as above, not in acute distress Resp - Clear to auscultate both sides, no wheezes, crackles or rales, no labored breathing CVS- RRR. No murmur, gallop or rub, pulse 2+ GI - NTND, bowel sounds normally heard, no mass palpable MANAGER AUDIO- cranial nerves 2 to 12 grossly intact, no focal motor or sensory deficits noted, speech normal Psych- A ANDO x 3, mood normal Skin- R lower extremity dressing intact, wound care notes and images reviewed Lines, Drains, and Airways Line Peripheral 08/21/192238 Assessment Left Antecubital 20 Gauge 1 day Peripheral 03/04/20 2240 Assessment Right Antecubital 20 Gauge 1 day Reviewed lines and needs to be continued: REASONS: Intravenous antibiotics DATA: Diagnostic tests reviewed for today's visit: Most recent labs and imaging results. Assessment/Plan #sepsis POA-secondary to foot infection, gangrene, continue vancomycin, zosyn and clindamycin for now, await culture data, surgical plans #RLE wound infection with wet gangrene and necrosis POD #0 s/p amputation-plan now is for arteriogram likely next week and then possibly bka v aka pending results, vascular and orthopedics following along #leukocytosis-due to above, trend, continue IV antibiotics #anemia-will check iron studies, no prior available, no evidence bleeding, repeat in am #hx PAD-continue statin #DM 2, uncontrolled-patient had been on insulin in past, unable to afford. He then started pills and a1c has gone from 7 to 9 to 9.8 today, continue SSI, check a1c, hold po medication for now, endocrinology consult given likely needs insulin but with issues affording, appreciate input #hypothyroidism-contin ue synthroid #hypomagnesemia-replac e and follow #hypophos-replace and follow #HTN-continue lisinopril #HLD-statin Medication and Non-Pharmacologic VTE Prophylaxis/Anticoagul ants Anticoagulant AND Antiplatelet Medications (From admission, onward) Start Dose Route Frequency Ordered Stop 08/21/19 193 heparin 5,000 Units injection (Medical Risk Categories) 5,000 Units SUBCUTANEOUS EVERY 12 HOURS 08/21/191915 -- 08/21/191914 vte non-pharmacologic prophylaxis - none indicated ([place] 08/21/191914 activity - mobilize patient ([place] VTE Prophylaxis: VTE prophylaxis appropriate Disposition: Home with [facility] Plan of care discussed with: Provider, RN, Patient SIGNATURE: Sue Bianchi DO PATIENT NAME: Elizabeth Modi DATE: August 23, 2019 TIME:12:20 PM PAGER/CONTACT #: [phone] [facility] PROGRESS HNO ID: [id number] Author: Tom Prescott DO Service: General Surgery Author Type: Resident Type: Progress Notes Filed: 08/23/2019 8:14 AM Note Text: Attestation signed by Gordo Figueroa at 08/23/2019 9:48 AM I personally saw and examined the patient on 08/23/2019. I reviewed the resident's note. I agree with the resident's assessment and plan unless otherwise noted. On examination today the patient basically has necrotic tissue seen in the base of the opened area that drained the purulent fluid from the foot last night. This extends across the arch of the foot and there is no way that the patient can have a procedure that would salvage the foot. I discussed all of this with the patient he seems very aware of this. There is evidence this morning that this may be progressing up to the level of the ankle and I want to try to get this foot off as quickly and expeditiously as possible. I also want to save the patient the lowest amputation site that he can possibly have and so my plan would be as follows: #1 do a guillotine above ankle amputation today to control the source of sepsis #2 plan for an arteriogram with possible intervention early next week to see if we can improve circulation and improve chances of below-knee amputation healing #3 definitive amputation at the end of next week. Vascular/Thoracic Surgery Progress Note SERVICE DATE: 08/23/2019 Vascular AND Thoracic Surgery Service Pager: For questions or concerns Mon-Fri 6a-5p please page [phone]. After 5pm and on Weekends and Holidays, please page [phone] if in ICU or [phone] if on RNF. Subjective SUBJECTIVE: Patient seen and examined multiple times since yesterday evening. He continues to deny any leg pain. Denies F/C. Denies N/V/CP/SOB. Foot wound examined with Dr. Figueroa at bedside. Diet: DIET NPO Objective OBJECTIVE: Vitals: Temp (24hrs), Av.6 ?C (97.8 ?F), Min:36.4 ?C (97.5 ?F), Max:36.7 ?C (98.1 ?F) BP 117/59 Pulse 80 Temp 36.4 ?C (97.5 ?F) (Temporal) Resp 18 Ht 177.8 cm (5' 10") Wt 85 kg (187 lb 6.3 oz) SpO2 94% BMI 26.89 kg/m? O2 Therapy: Room Air IANDO: Date 08/22/19699 - 08/23/19 0659 08/23/19699 - 08/24/19 0659 Shift 0855-9174 5934-8377 2090-0047 24 Hour Total 7014-7287 6115-5102 4422-9455 24 Hour Total INTAKE PO 240 240 PO 240 240 Shift Total 240 240 OUTPUT Urine 500 432 210 2872 Void (ml) 500 091 201 3104 Shift Total 500 157 614 4622 Weight (kg) 85 85 85 85 85 85 85 85 MEDICATIONS Current Facility-Administered Medications Medication Dose Route Frequency - [MAR Hold due to Transfer] dextrose 5% in NaCl 0.45% with 20 mEq/L KCl iv infusion 80 mL/hr INTRAVENOUS CONTINUOUS - [MAR Hold due to Transfer] magnesium sulfate in sterile water 4 g iv piggyback 4 g INTRAVENOUS ONCE - [MAR Hold due to Transfer] potassium phosphate 30 mmol in NaCl 0.9% 250 mL 30 mmol INTRAVENOUS ONCE - [MAR Hold due to Transfer] magnesium sulfate in sterile water 4 g iv piggyback 4 g INTRAVENOUS ONCE - [MAR Hold due to Transfer] heparin 5,000 Units injection 5,000 Units SUBCUTANEOUS q 12 H - [MAR Hold due to Transfer] aluminum-magnesium hydroxide-simethicone 200-200-20 mg/5 mL 30 mL (MAALOX,MYLANTA,MAG-AL PLUS) 30 mL ORAL DAILY PRN - [MAR Hold due to Transfer] ondansetron 4 mg tab(s) (ZOFRAN) 4 mg ORAL q 6 H PRN Or - [MAR Hold due to Transfer] ondansetron (PF) 4 mg injection (ZOFRAN) 4 mg INTRAVENOUS q 6 H PRN - [MAR Hold due to Transfer] polyethylene glycol 3350 17 g packet (MIRALAX, GLYCOLAX) 17 g ORAL DAILY PRN - [MAR Hold due to Transfer] docusate sodium 100 mg cap(s) (COLACE) 100 mg ORAL BID PRN - [MAR Hold due to Transfer] magnesium hydroxide 400 mg/5 mL 30 mL (MOM) 30 mL ORAL DAILY PRN - [MAR Hold due to Transfer] bisacodyl 10 mg suppository (DULCOLAX) 10 mg RECTAL DAILY PRN - [MAR Hold due to Transfer] acetaminophen 650 mg tab(s) (TYLENOL) 650 mg ORAL q 6 H PRN - [MAR Hold due to Transfer] atorvastatin 40 mg tab(s) (LIPITOR) 40 mg ORAL DAILY - [MAR Hold due to Transfer] lisinopril 10 mg tab(s) (ZESTRIL, PRINIVIL) 10 mg ORAL DAILY - [MAR Hold due to Transfer] levothyroxine 25 mcg tab(s) (SYNTHROID) 25 mcg ORAL DAILY - [MAR Hold due to Transfer] insulin lispro pen (rapid acting) (HumaLOG KWIKPEN) SUBCUTANEOUS w MEALS AND HS - [MAR Hold due to Transfer] dextrose 40 % 15 g 15 g ORAL PRN Or - [MAR Hold due to Transfer] glucagon 1 mg injection (GLUCAGEN) 1 mg INTRAMUSCULAR PRN Or - [MAR Hold due to Transfer] dextrose 50% in water 25 mL syringe 12.5 g INTRAVENOUS PRN - [MAR Hold due to Transfer] vancomycin iv piggyback 1.25 g in D5W 250 mL (VANCOCIN) 1.25 g INTRAVENOUS q 12 HR - [MAR Hold due to Transfer] vancomycin dosing and monitoring per pharmacy OTHER As Directed - [MAR Hold due to Transfer] piperacillin-tazobacta m iv piggyback 3.375 g in dextrose (iso-osmotic) 50 mL (ZOSYN) 3.375 g INTRAVENOUS q 6 H - [MAR Hold due to Transfer] clindamycin iv piggyback 600 mg in D5W 50 mL (CLEOCIN) 600 mg INTRAVENOUS q 6 H Labs: Recent Labs 08/23/19 0345 08/22/19 0454 NA 133* 133* K 3.8 4.1 CHLOR 103 104 CO2 22 21 BUN 15 31* CREAT 0.88 0.95 GLUC 96 218* ANION 12 12 CA 7.2* 7.1* MG 0.9* -- P 2.1* -- ALB -- 1.7* AST -- 81* ALT -- 73 ALKPHOS -- 107 TBILI -- 0.5 WBC 18.79* 19.76* HB 10.2* 9.4* HCT 31.0* 28.4* PLT 421* 380* Exam: GENERAL: No distress, Alert NEURO: AANDOx3, CN II-XII grossly intact HEENT: normocephalic, atraumatic, EOMI NECK: trachea midline, no JVD LUNGS: Unlabored breathing O2 Therapy: Room Air CARDIAC: Regular rate, BP as above ABDOMEN: Soft, non-tender, non-distended EXTREMITIES: necrotic RLE digits, worsening erythema and swelling to RLE, malodorous, non-tender PSYCH: normal mood and affect ASSESSMENT AND PLAN: Active Hospital Problems Diagnosis Date Noted - Malnutrition of moderate degree (HCC) 08/22/2019 - Gangrene of foot (HCC) 08/21/2019 - Diabetes (HCC) 08/21/2019 - HTN (hypertension) 08/21/2019 - Dyslipidemia 08/21/2019 - Hypothyroidism 08/21/2019 Assessment: 79 year old male with PMH thyroid disease, HTN, dyslipidemia, DM, claudication who presents with necrosis of R foot. Plan: Foot wound examined with Dr. Figueroa at bedside. WBC stable, on abx per ID, afebrile Vanc/zosyn/clinda PVRs reviewed Tentative plan was for angio today but given appearence of gas and fluid seen on IANDD performed by podiatry and erythema, patient was consented for amputation. MRI with OM in 2nd distal phalanx and 2-5 metatarsal head Assessment and plan discussed with attending: Dr. Figueroa, agronomist for Dr. Parmar SIGNATURE: Tom Prescott DO PATIENT NAME: Elizabeth Modi DATE: August 23, 2019 TIME: 8:02 AM Vascular AND Thoracic Surgery Service Pager: For questions or concerns Mon-Fri 6a-5p please page [phone]. After 5pm and on Weekends and Holidays, please page [phone] if in ICU or [phone] if on RNF. Normal [facility] PROGRESS HNO ID: [id number] Author: Cayetano Zapata MD Service: Orthopaedic Surgery Author Type: Resident Type: Progress Notes Filed: 08/23/2019 6:31 AM Note Text: ORTHOPAEDIC SURGERY DAILY PROGRESS NOTE ASSESMENT: 79 y/o man with right foot gangrene PLAN: -Medical management per primary team -Pain control per primary team -Antibiotics per ID -Local wound care -Vascular surgery planning angio to determine level of viable amputation, will perform guillotine amputation if patient decompensates or appears septic INTERVAL HPI: No acute events overnight. Pain controlled. Denies fevers and chills. Denies chest pain and shortness of breath. OBJECTIVE: BP 117/59 Pulse 80 Temp 36.4 ?C (97.5 ?F) (Temporal) Resp 18 Ht 177.8 cm (5' 10") Wt 85 kg (187 lb 6.3 oz) SpO2 94% BMI 26.89 kg/m? Exam: General: NAD, AOx3 Right Lower Extremity: Malodor. Necrotic tissue to toes and plantar/dorsal surface of foot. Erythema to dorsum of foot. Patient denies TTP about foot and toes. +motor function EHL/FHL/DF/PF Sensation grossly intact to light touch about foot, although decreased. Recent Labs 08/23/19 0345 08/22/19 0454 CREAT -- 0.95 BUN -- 31* NA -- 133* K -- 4.1 CHLOR -- 104 CO2 -- 21 ANION -- 12 GLUC -- 218* CA -- 7.1* ALB -- 1.7* AST -- 81* ALT -- 73 ALKPHOS -- 107 TBILI -- 0.5 WBC 18.79* 19.76* HB 10.2* 9.4* HCT 31.0* 28.4* PLT 421* 380* COAGS: No results found for this basename: aptt,inr SED RATE/CRP: No results found for this basename: wsr:*,crp:* Imaging: No new orthopaedic imaging. SIGNATURE: Cayetano Zapata MD PATIENT NAME: Elizabeth Modi DATE: 08/23/19 TIME: 6:27 AM PAGER/CONTACT #: [phone] Normal [facility] PROGRESS HNO ID: [id number] Author: Tom Prescott DO Service: General Surgery Author Type: Resident Type: Progress Notes Filed: 08/23/2019 1:43 AM Note Text: Patient seen multiple times throughout the evening. Care discussed with multiple RNs. 08/22/19 1400 08/22/19 1900 08/22/19 2113 08/23/19 0131 BP: 137/54 (!) 128/48 110/68 Pulse: 87 79 82 Resp: 06 05 18 Temp: 36.7 ?C (98.1 ?F) 36.4 ?C (97.5 ?F) 36.6 ?C (97.9 ?F) TempSrc: Tympanic Oral Oral SpO2: 98% 95% 95% Weight: 85 kg (187 lb 6.3 oz) Height: Will continue to monitor vitals. RN to call with changes. Consented for guillotine amputation in emergency. Tom Prescott DO, MBA PGY-1 General Surgery Resident 08/23/2019 1:42 AM Pager below: Vascular AND Thoracic Surgery Service Pager: For questions or concerns Mon-Mon 6a-5p please page [phone]. After 5pm and on Weekends and Holidays, please page [phone] if in ICU or [phone] if on RNF. Normal [facility] Phosphorus Bloodon 0 Phosphate [Mass/Vol] 2.1 mg/dL Low 2.5-4.9 [facility] Comment on above: Performed By: #### M AG #### [place] [address] Vancomycin,Randomon 08-23-19 20 INR Coag (Bld) [Relative time] 22.0 mg/L Normal [facility] Comment on above: Result Comment: Trou gh 10.0-20.0 mg/L Peak 18.0-40.0 mg/L Performed By: #### C _ANA #### [place] [address] CONSULTon 08-22-2019 CONSULT HNO ID: [id number] Author: Paulo Landis Service: Infectious Disease Author Type: Physician Type: Consults Filed: 08/22/2019 3:07 PM Note Text: INITIAL CONSULT INFECTIOUS DISEASE SERVICE DATE: 08/22/2019 SERVICE TIME: 1:42 PM We were asked to evaluate Mr. Elizabeth Modi, a 79 year old yo male by for Infected Gangrenous right foot - rule out OM. Our findings and recommendations will be communicated through the shared medical record. ASSESSMENT: 1. 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 Low suspicion for group A strep given aggressive spreading. 2. DM2 uncontrolled 3. Severe PAD Estimated Creatinine Clearance: 66.2 mL/min (based on SCr of 0.95 mg/dL). RECOMMENDATIONS: - Cont zosyn #2, vancomycin #1, clindamycin #1 - De-escalate after surgical intervention - Please send for routine culture - Depending on the procedure, if BKA or AKA, then will only need 2 week antibiotics - Await surgical intervention, briefed patient about amputation, but will wait for surgical team for further discussion SUBJECTIVE: HPI: 79M DM2, HTN, chronic intermittent claudication, hypothyroidism, presented with R foot gangrene for 1.5 weeks. Patient did not remember going through any trauma of the foot. He is not experiencing any pain currently. He stated that his foot was normal 1.5 weeks ago. He also stated that for many years ago he was told that he has vascular problem because he would have muscle aches of his legs after a walk and would have to rest to feel better. But he never followed up with that Exposure History Travel: none Pets and animal exposure: 1 dog Hobbies: race cars but no longer doing that Employment: work with [email or web address] CURRENT ANTIBIOTICS: Zosyn Clindamycin vancomycin Current other medications reviewed. Current Facility-Administered Medications Medication Dose Route Frequency - heparin 5,000 Units injection 5,000 Units SUBCUTANEOUS q 12 H - NaCl 0.9% iv infusion 75 mL/hr INTRAVENOUS CONTINUOUS - aluminum-magnesium hydroxide-simethicone 200-200-20 mg/5 mL 30 mL (MAALOX,MYLANTA,MAG-AL PLUS) 30 mL ORAL DAILY PRN - ondansetron 4 mg tab(s) (ZOFRAN) 4 mg ORAL q 6 H PRN Or - ondansetron (PF) 4 mg injection (ZOFRAN) 4 mg INTRAVENOUS q 6 H PRN - polyethylene glycol 3350 17 g packet (MIRALAX, GLYCOLAX) 17 g ORAL DAILY PRN - docusate sodium 100 mg cap(s) (COLACE) 100 mg ORAL BID PRN - magnesium hydroxide 400 mg/5 mL 30 mL (MOM) 30 mL ORAL DAILY PRN - bisacodyl 10 mg suppository (DULCOLAX) 10 mg RECTAL DAILY PRN - acetaminophen 650 mg tab(s) (TYLENOL) 650 mg ORAL q 6 H PRN - atorvastatin 40 mg tab(s) (LIPITOR) 40 mg ORAL DAILY - lisinopril 10 mg tab(s) (ZESTRIL, PRINIVIL) 10 mg ORAL DAILY - levothyroxine 25 mcg tab(s) (SYNTHROID) 25 mcg ORAL DAILY - insulin lispro pen (rapid acting) (HumaLOG KWIKPEN) SUBCUTANEOUS w MEALS AND HS - dextrose 40 % 15 g 15 g ORAL PRN Or - glucagon 1 mg injection (GLUCAGEN) 1 mg INTRAMUSCULAR PRN Or - dextrose 50% in water 25 mL syringe 12.5 g INTRAVENOUS PRN - vancomycin iv piggyback 1.25 g in D5W 250 mL (VANCOCIN) 1.25 g INTRAVENOUS q 12 HR - vancomycin dosing and monitoring per pharmacy OTHER As Directed - piperacillin-tazobacta m iv piggyback 3.375 g in dextrose (iso-osmotic) 50 mL (ZOSYN) 3.375 g INTRAVENOUS q 6 H - clindamycin iv piggyback 600 mg in D5W 50 mL (CLEOCIN) 600 mg INTRAVENOUS q 6 H PAST MEDICAL HISTORY Diagnosis Date - DM (diabetes mellitus) (HCC) - Dyslipidemia - HTN (hypertension) - Hypothyroidism No past surgical history on file. Social History Tobacco Use - Smoking status: Not on file Substance Use Topics - Alcohol use: Not on file - Drug use: Not on file No family history on file. ALLERGIES No Known Allergies OBJECTIVE: REVIEW OF SYSTEMS: GENERAL: No weight loss, malaise or fevers HEENT: Negative for frequent or significant headaches NECK: Negative for lumps, goiter, pain and significant neck swelling RESPIRATORY: Negative for cough, hemoptysis, wheezing, COPD, dyspnea or shortness of breath CARDIOVASCULAR: Negative for chest pain, leg swelling, hypertension, CHF or palpitations GI: No nausea, vomiting, or diarrhea : No history of dysuria, frequency or incontinence MUSCULOSKELETAL: Negative for joint pain or swelling, back pain or muscle pain SKIN: See HPI PSYCH: Negative for sleep disturbance, mood disorder and recent psychosocial stressors PHYSICAL EXAM: BP 122/55 Pulse 78 Temp 36.8 ?C (98.2 ?F) (Oral) Resp 18 Ht 177.8 cm (5' 10") Wt 85 kg (187 lb 6.3 oz) SpO2 94% BMI 26.89 kg/m? GENERAL APPEARANCE: Comfortable SKIN: No rashes or lesions HEAD/SINUSES: No significant findings LUNGS: Normal breath sounds, clear to auscultation, no wheezes, or crackles HEART:RRR, no murmurs ABDOMEN: Soft, non tender, BS+ EXTREMITIES: R foot black gangrene NEURO: Awake, alert, no involuntary motions LABS: WBC (thou/cmm) Date Value 08/22/2019 19.76 Creatinine (mg/dL) Date Value 08/22/2019 0.95 No results found for: NEUTP, ABSNEUT, LYMPHP, ABSLYMPH, ABSMONO, EODINP, ABSEOSIN, BASOP, ABSBASO Lab Results Component Value Date PLT 380 08/22/2019 HB 9.4 08/22/2019 HCT 28.4 08/22/2019 ALB 1.7 08/22/2019 CA 7.1 08/22/2019 TBILI 0.5 08/22/2019 ALKPHOS 107 08/22/2019 AST 81 08/22/2019 GLUC 218 08/22/2019 BUN 31 08/22/2019 NA 133 08/22/2019 K 4.1 08/22/2019 CHLOR 104 08/22/2019 CO2 21 08/22/2019 ANION 12 08/22/2019 ALT 73 08/22/2019 No results found for: WSR, CRP, IGG No results found for: VANCOPRE, VANCORA MICROBIOLOGY: none IMAGING: MRI foot R 08/22/19: 1. ?Very limited study due to motion artifact. 2. ?Numerous foci of air are present throughout the foot as discussed, concerning for diffuse soft tissue infection with a gas-forming organism. 3. ?Tissue loss involving the distal second toe concerning for necrosis. 4. ?Somewhat ill-defined T2 hyperintensity throughout the foot which could represent phlegmonous material. No obvious abscess collection. 5. ?There may be early cortical loss involving the distal portion of the second distal phalanx concerning for osteomyelitis. 6. ?Scattered regions of abnormal signal involving the second through fifth metatarsal head and neck and scattered throughout the toes which could be reactive or related to early osteomyelitis. US arterial PVR lower: RIGHT SIDE Resting right ankle brachial index: 0.29 Right toe brachial index: 0.00 Abnormal ankle brachial index at rest diagnostic of peripheral artery disease. Right ankle: Severe disease at rest. Right iliofemoral disease. Right superficial femoral disease may also be present. Right distal superficial femoral and/or popliteal disease. Right infrapopliteal disease. Right small vessel disease. DATA: Diagnostic Tests Reviewed for Today's Visit: Most recent labs Most recent imaging Thank you very much for inviting us to participate in the care of this patient. SIGNATURE: Paulo Landis MD PATIENT NAME: Elizabeth Modi DATE: August 22, 2019 TIME: 1:42 PM PAGER/CONTACT #: [phone] Normal [facility] CONSULT HNO ID: [id number] Author: Yadi Badillo Service: Orthopaedic Surgery Author Type: Physician Type: Consults Filed: 08/22/2019 6:41 PM Note Text: ORTHOPAEDIC SURGERY CONSULT Pt: ELIZABETH MODI Date of Consultation: 08/22/2019 Physician Consulted: Dr. Badillo Reason for Consultation: Necrotic foot HPI: 79 year old male presented to [facility] on 08/21/2019 with complaints of changes to his right foot. He has a history of diabetes and PAD/PVD. He states he noticed his foot turned black roughly one week ago. He states he has no pain. He denies any fevers or chills. PAST MEDICAL HISTORY Diagnosis Date - DM (diabetes mellitus) (HCC) - Dyslipidemia - HTN (hypertension) - Hypothyroidism No past surgical history on file. Allergies: Patient has no known allergies. Current Facility-Administered Medications Medication Dose Route Frequency - heparin 5,000 Units injection 5,000 Units SUBCUTANEOUS q 12 H - NaCl 0.9% iv infusion 75 mL/hr INTRAVENOUS CONTINUOUS - aluminum-magnesium hydroxide-simethicone 200-200-20 mg/5 mL 30 mL (MAALOX,MYLANTA,MAG-AL PLUS) 30 mL ORAL DAILY PRN - ondansetron 4 mg tab(s) (ZOFRAN) 4 mg ORAL q 6 H PRN Or - ondansetron (PF) 4 mg injection (ZOFRAN) 4 mg INTRAVENOUS q 6 H PRN - polyethylene glycol 3350 17 g packet (MIRALAX, GLYCOLAX) 17 g ORAL DAILY PRN - docusate sodium 100 mg cap(s) (COLACE) 100 mg ORAL BID PRN - magnesium hydroxide 400 mg/5 mL 30 mL (MOM) 30 mL ORAL DAILY PRN - bisacodyl 10 mg suppository (DULCOLAX) 10 mg RECTAL DAILY PRN - acetaminophen 650 mg tab(s) (TYLENOL) 650 mg ORAL q 6 H PRN - atorvastatin 40 mg tab(s) (LIPITOR) 40 mg ORAL DAILY - lisinopril 10 mg tab(s) (ZESTRIL, PRINIVIL) 10 mg ORAL DAILY - levothyroxine 25 mcg tab(s) (SYNTHROID) 25 mcg ORAL DAILY - insulin lispro pen (rapid acting) (HumaLOG KWIKPEN) SUBCUTANEOUS w MEALS AND HS - dextrose 40 % 15 g 15 g ORAL PRN Or - glucagon 1 mg injection (GLUCAGEN) 1 mg INTRAMUSCULAR PRN Or - dextrose 50% in water 25 mL syringe 12.5 g INTRAVENOUS PRN - vancomycin iv piggyback 1.25 g in D5W 250 mL (VANCOCIN) 1.25 g INTRAVENOUS q 12 HR - vancomycin dosing and monitoring per pharmacy OTHER As Directed - piperacillin-tazobacta m iv piggyback 3.375 g in dextrose (iso-osmotic) 50 mL (ZOSYN) 3.375 g INTRAVENOUS q 6 H - clindamycin iv piggyback 600 mg in D5W 50 mL (CLEOCIN) 600 mg INTRAVENOUS q 6 H No family history on file. Negative for family history of bleeding and clotting disorders. Social History Tobacco Use - Smoking status: Not on file Substance Use Topics - Alcohol use: Not on file - Drug use: Not on file ROS: 10 pt ROS neg except in HPI O: Vitals: BP 122/55 Pulse 78 Temp 36.8 ?C (98.2 ?F) (Oral) Resp 18 Ht 177.8 cm (5' 10") Wt 85 kg (187 lb 6.3 oz) SpO2 94% BMI 26.89 kg/m? Physical exam: General: AANDO x 3; NAD. Cooperative throughout entire interview Right Lower Extremity: Necrotic changes to all toes with distal hallux, second and third toes mummified - remaining toes gangrene though not mummified. Necrotic changes extend proximally to midfoot on dorsal surface with some erythema surrounding. Necrotic appearance to plantar surface of forefoot with extension to the plantar medial arch to level of just distal to the heel. This area feels fluctuant with crepitus noted. Patient denies TTP about foot and toes +motor function EHL/FHL/DF/PF Sensation grossly intact to light touch about foot though decreased Weak DP pulse on doppler. Labs: BMP: Sodium 133 08/22/2019 Potassium 4.1 08/22/2019 Chloride 104 08/22/2019 CO2 21 08/22/2019 BUN 31 08/22/2019 Creatinine 0.95 08/22/2019 Glucose 218 08/22/2019 CBC: WBC 19.76 08/22/2019 HGB 9.4 08/22/2019 Hematocrit 28.4 08/22/2019 Platelet Count 380 08/22/2019 COAGS: No results found for this basename: aptt,inr SED RATE/CRP: No results found for this basename: wsr:*,crp:* Imaging: -XR of the right foot (08/21/2019): Soft tissue swelling with some air bubbles about plantar arch and dorsum of forefoot which correlate with wounds. A/P: 79 year old male with Necrotic right toes and foot -Medical management per primary team -Antibiotics per ID/primary -Local wound care -MRI and PVRs pending -Likely no viable tissue on platar foot for flap coverage if TMA was attempted. -Recommend BKA per vascular Discussed with Dr. Badillo who is in agreement with this plan. Cayetano Zapata MD Orthopaedic Surgery 08/22/2019 9:36 AM Attending Note I evaluated the patient and personally participated in the loera components. I agree with the resident's findings and plan as documented and have discussed the case and management of the patient's care with the resident. Plan of care discussed with: Provider, RN, Patient. PVRs reviewed. RIGHT SIDE Resting right ankle brachial index: 0.29 Right toe brachial index: 0.00 Abnormal ankle brachial index at rest diagnostic of peripheral artery disease. Right ankle: Severe disease at rest. Right iliofemoral disease. Right superficial femoral disease may also be present. Right distal superficial femoral and/or popliteal disease. Right infrapopliteal disease. Right small vessel disease. MRI Impression: IMPRESSION: 1. ?Very limited study due to motion artifact. 2. ?Numerous foci of air are present throughout the foot as discussed, concerning for diffuse soft tissue infection with a gas-forming organism. 3. ?Tissue loss involving the distal second toe concerning for necrosis. 4. ?Somewhat ill-defined T2 hyperintensity throughout the foot which could represent phlegmonous material. No obvious abscess collection. 5. ?There may be early cortical loss involving the distal portion of the second distal phalanx concerning for osteomyelitis. 6. ?Scattered regions of abnormal signal involving the second through fifth metatarsal head and neck and scattered throughout the toes which could be reactive or related to early osteomyelitis. Severe malodor and crepitus noted plantarly. No proximal crepitus was noted. Bedside IANDD performed today. Discussed risks, benefits, complications, alternatives. Discussed that patient will still require amputation but will try to allow for decompression of infection. 6cm incision made to the plantar aspect of the right foot under aseptic technique using 15 scalpel blade. Upon incision, purulent malodors dishwater drainage was expressed. No bleeding was encountered. Scissors were utilized to open this area to allow for further expression and cultures were taken and sent to microbiology. Mesalt packing placed and DSD applied. Vascular plans for angio noted for tomorrow. Discussed case with Dr. Parmar with vascular. Severe soft tissue loss in DM pt with severe PAD. Concerned regarding extent of infection and need for more urgent amputation. They will assess in am and potentially perform guillotine amputation at ankle level if needed tomorrow. Signature: Yadi Badillo DPM Date: August 22, 2019 Time: 6:32 PM Normal [facility] CONSULT HNO ID: [id number] Author: Ana Luisa Crooks Service: General Surgery Author Type: Resident Type: Consults Filed: 08/22/2019 6:04 AM Note Text: Attestation signed by Jovanny Parmar at 08/22/2019 2:37 PM Attending Note I personally saw and examined the patient. I reviewed the resident's note. I agree with the resident's assessment and plan unless otherwise noted. Seen by podiatry - does not have sufficient tissue to heal a TMA. PVRs reviewed - will need further imaging to determine possible level of amputation. Will schedule for angiogram tomorrow 08/23/19 Signature: Jovanny Parmar MD Date: 08/22/2019 Time: 2:37 PM VASCULAR SURGERY CONSULT NOTE Vascular AND Thoracic Surgery Service Pager: For questions or concerns Mon-Fri 6a-5p please page [phone]. After 5pm and on Weekends and Holidays, please page [phone] if in ICU or [phone] if on RNF. Service date: 08/22/2019 Service time: 4:01 AM Reason for consult: foot wounds Nature of consult: routine Subjective HPI Mr. Modi is a 79 year old male with necrotic L foot. Patient reports that he has only noticed this over the last week. Initially presented to [facility] for this reason and was transferred to [facility] for care. Denies pain and states he is still able to walk on it. Reports fevers and chills. Denies previous similar episodes although he did present with claudication symptoms about twenty years ago and was advised to seek care for PVD at that time. He has never seen a vascular surgeon. Has had significant decrease in his walking capacity, is able to get around his trailer home He also reports intermittent dizziness with turning his head sharply to the right that he noticed around the same time. Last time this occurred was about one month ago. He was told this was due to a "stone in the ear" Denies cardiac history History of about 20 pk years Denies AC/AP at home PAST MEDICAL HISTORY Diagnosis Date - DM (diabetes mellitus) (HCC) - Dyslipidemia - HTN (hypertension) - Hypothyroidism No past surgical history on file. No family history on file. Allergies As of Date: 08/21/2019 (No Known Allergies) Fully Assessed 08/21/2019 Complete ten point review of systems completed and negative aside from noted in HPI. Objective PHYSICAL EXAM Physical Exam Performed: Ambulatory status:short distances Mental status: Alert and Oriented x 3 GENERAL: Alert, no distress, cooperative SKIN: Skin color, texture, turgor normal. No rashes or lesions. HEAD/SINUSES: No significant findings EYES: PERRLA, EOMI NECK: No jugulovenous distention, Supple LUNGS: RA, no cough or wheeze CARDIAC: Rhythm: regular rate and rhythm ABDOMEN: Soft, nontender EXTREMITIES: necrotic area over dorsal aspect across all R toes. Dry gangrene noted over plantar arch NEURO: Cranial nerves II-XII intact PULSES: 2+ radial, doppler signal PT bilaterally, AT R side BP 120/50 Pulse 84 Temp (Src) 97.5 (Temporal Artery) Resp 16 Ht 5' 10" (1.78m) Wt 187 lb 6.3 oz (85.0kg) SpO2 98% BMI 26.89 kg/(m2). O2 Therapy: Room Air DATA Recent labs and imaging reviewed US ART DUPL LOWER EXT RT (Results Pending) MRI FOOT/TOES WO IVCON RT (Results Pending) Impression/Recommendat ions ASSESSMENT AND PLAN 79 year old male with PMH thyroid disease, HTN, dyslipidemia, DM, claudication who presents with necrosis of R foot Necrosis of foot - patient clinically stable and currently non septic appearing, labs still pending - PVRs to determine perfusion of distal extremities - recommend podiatry evaluation for less aggressive measures than BKA - surgical intervention planning pending workup Discussed above plan with attending, Dr Parmar SIGNATURE: Ana Luisa Crooks MD PATIENT NAME: Elizabeth Modi DATE: August 22, 2019 TIME: 4:01 AM PAGER: see below Vascular AND Thoracic Surgery Service Pager: For questions or concerns Mon-Fri 6a-5p please page [phone]. After 5pm and on Weekends and Holidays, please page [phone] if in ICU or [phone] if on RNF. Normal [facility] CONSULT PROGon 08-22-2019 CONSULT PROG HNO ID: [id number] Author: Adali Murry Service: Wound Care Team Author Type: Nurse Specialist Type: Consult Progress Note Filed: 08/22/2019 11:19 AM Note Text: WOUND CARE CONSULT CARDIOGRAPHER NOTE SERVICE DATE: 08/22/2019 SERVICE TIME: 0910 TIME SPENT (minutes): 30 REASON FOR CONSULT: Eval R foot necrosis/wound CHIEF COMPLAINT: c/o necrotic toes and tissue to R foot. Subjective HISTORY OF PRESENT ILLNESS: Mr. Modi is a 79 year old male who is seen today with Yolanda Jackman Wound/continuous improvement manager, and presented to hospital with complaints of necrotic R foot. Pt states his R toes began turning black 1 week ago, pt w/ known DM, PAD and PVD. Denies pain to foot. PERTINENT REVIEW OF SYSTEMS: GENERAL: Denies NVD, F/C PAIN ASSESSMENT: denies pain to wound SKIN: R foot necrotic W/ odor RESPIRATORY: Denies SOB PAST MEDICAL HISTORY Diagnosis Date - DM (diabetes mellitus) (HCC) - Dyslipidemia - HTN (hypertension) - Hypothyroidism PAD/PVD No past surgical history on file. Social History Tobacco Use - Smoking status: Not on file Substance Use Topics - Alcohol use: Not on file - Drug use: Not on file No family history on file. MEDICATIONS: Current Facility-Administered Medications Medication Dose Route Frequency - heparin 5,000 Units injection 5,000 Units SUBCUTANEOUS q 12 H - NaCl 0.9% iv infusion 75 mL/hr INTRAVENOUS CONTINUOUS - aluminum-magnesium hydroxide-simethicone 200-200-20 mg/5 mL 30 mL (MAALOX,MYLANTA,MAG-AL PLUS) 30 mL ORAL DAILY PRN - ondansetron 4 mg tab(s) (ZOFRAN) 4 mg ORAL q 6 H PRN Or - ondansetron (PF) 4 mg injection (ZOFRAN) 4 mg INTRAVENOUS q 6 H PRN - polyethylene glycol 3350 17 g packet (MIRALAX, GLYCOLAX) 17 g ORAL DAILY PRN - docusate sodium 100 mg cap(s) (COLACE) 100 mg ORAL BID PRN - magnesium hydroxide 400 mg/5 mL 30 mL (MOM) 30 mL ORAL DAILY PRN - bisacodyl 10 mg suppository (DULCOLAX) 10 mg RECTAL DAILY PRN - acetaminophen 650 mg tab(s) (TYLENOL) 650 mg ORAL q 6 H PRN - atorvastatin 40 mg tab(s) (LIPITOR) 40 mg ORAL DAILY - lisinopril 10 mg tab(s) (ZESTRIL, PRINIVIL) 10 mg ORAL DAILY - levothyroxine 25 mcg tab(s) (SYNTHROID) 25 mcg ORAL DAILY - insulin lispro pen (rapid acting) (HumaLOG KWIKPEN) SUBCUTANEOUS w MEALS AND HS - dextrose 40 % 15 g 15 g ORAL PRN Or - glucagon 1 mg injection (GLUCAGEN) 1 mg INTRAMUSCULAR PRN Or - dextrose 50% in water 25 mL syringe 12.5 g INTRAVENOUS PRN - vancomycin iv piggyback 1.25 g in D5W 250 mL (VANCOCIN) 1.25 g INTRAVENOUS q 12 HR - vancomycin dosing and monitoring per pharmacy OTHER As Directed - piperacillin-tazobacta m iv piggyback 3.375 g in dextrose (iso-osmotic) 50 mL (ZOSYN) 3.375 g INTRAVENOUS q 6 H - clindamycin iv piggyback 600 mg in D5W 50 mL (CLEOCIN) 600 mg INTRAVENOUS q 6 H ALLERGIES No Known Allergies Objective PHYSICAL EXAM: BP 122/55 Pulse 78 Temp 36.8 ?C (98.2 ?F) (Oral) Resp 18 Ht 177.8 cm (5' 10") Wt 85 kg (187 lb 6.3 oz) SpO2 94% BMI 26.89 kg/m? General appearance: In no apparent distress, denies pain to R foot Respiratory: unlabored respirations Cardiovascular: doppled pulses R foot, currently receiving PVRs s/ ABIs Extremities: L foot intact, R foot w/ necrotic toes and necrotic tissue/blistered tissue. Denies wounds to buttocks. DATA Labs: wbc 19.76 WOUND ASSESSMENT: Wound Type: Partially necrotic foot/ arterial Location: R toes necrotic w/ necrosis radiating to dorsal foot and plantar foot Exudate: scant serous drainage noted from plantar foot Odor: strong/ foul Periwound: rubor areas Local pulse: doppled Pain: denies pain Wound Care Plan: Mesalt bid to R foot wound w/ dressing over. Ortho and vascular on consult. PVR results pending, MRI pending. ID consult pending. Pt currently on zosyn and vanc. Per ortho note " Likely no viable tissue on platar foot for flap coverage if TMA was attempted. Recommend BKA per vascular" A photo was taken of the patient's wound(s). Photos can be found under the Get Images tab on [employer]. Photos are uploaded by the wound skin care consultant and may not be immediately available for viewing. Contact the wound and ostomy care department with questions. SIGNATURE: Adali Murry APRN.MANAGER AUDIO PATIENT NAME: Elizabeth Modi DATE: August 22, 2019 TIME: 11:03 AM CONTACT#: [id number] [facility] CONSULT PROG HNO ID: [id number] Author: Jose Walton (Pharmacist) Service: Pharmacy Author Type: Pharmacist Type: Consult Progress Note Filed: 08/22/2019 9:21 AM Note Text: PHARMACY VANCOMYCIN DOSING NOTE Patient Name: Elizabeth Modi Admission Date: 08/21/2019 Date of Consult: 08/22/2019 Time of Consult: 9:14 AM Indication: Skin/Soft tissue infection Goal Range: 10-20 mcg/mL RECOMMENDATIONS/PLAN: Pharmacy consulted for vancomycin dosing for Elizabeth Modi, a 79 year old, male who is being treated with vancomycin for Skin/Soft tissue infection 1. Patient is currently ordered Vancomycin 1.25 g IV q12h. Today is day # of therapy, but first dose was not given until 0830 today. I could not get RN to tell why dose was not given yesterday as ordered. 2. No vancomycin level has been drawn for this dosing regimen. 3. The present dose of vancomycin is the recommended dosage for this patient at this time. Continue therapy as prescribed. 4. The next vancomycin level has been ordered for 08/23/19 @ 1900 prior to 4th dose-obese geriatric patient with changing renal function, and leukocytosis. (Completed) We will follow patient renal function, vancomycin levels and doses with you during the course of therapy. Additional recommendations will appear in follow up notes. If you have any questions, please contact Pharmacy at [phone]. Age: [age] year old Allergies: ALLERGIES No Known Allergies Last 3 Encounter Wt Readings: Date: Wt: 08/21/2019 85 kg (187 lb 6.3 oz) Last 1 Encounter Ht Readings: Date: Ht: 08/21/2019 177.8 cm (5' 10") CrCl: 66.2 mL/min Temp (24hrs), Av.6 ?C (97.9 ?F), Min:36.4 ?C (97.5 ?F), Max:36.8 ?C (98.2 ?F) - Current Temp: 36.8 ?C (98.2 ?F) Labs BUN (mg/dL) Date Value 08/22/2019 31 (H) Creatinine (mg/dL) Date Value 08/22/2019 0.95 WBC (thou/cmm) Date Value 08/22/2019 19.76 (H) Vancomycin Levels: No results found for: PEGGY Walton, Pharmacist Pager: [phone] Normal [facility] Comprehensive Panelon 2019 ALP [Catalytic activity/Vol] 107 U/L Normal 45-117 [facility] Comment on above: Performed By: #### C _ANA #### [facility] [address] [place], [place] [address] Bilirubin [Mass/Vol] 0.5 mg/dL Normal 0.2-1.0 [facility] Comment on above: Result Comment: Use of this assay is not recommended for patients undergoing treatment with eltrombopag due to the potential for falsely elevated results. Performed By: #### C _ANA #### [facility] [address] [place], [place] [address] Protein [Mass/Vol] 6.4 g/dL Normal 6.4-8.2 [facility] Comment on above: Performed By: #### C _ANA #### [facility] [address] [place], [place] [address] ALT [Catalytic activity/Vol] 73 U/L Normal 12-78 [facility] Comment on above: Performed By: #### C _ANA #### [facility] [address] [place], [place] [address] AST [Catalytic activity/Vol] 81 U/L High 15-37 [facility] Comment on above: Performed By: #### C _ANA #### [facility] [address] [place], [place] [address] Creatinine [Mass/Vol] 0.95 mg/dL Normal 0.67-1.17 [facility] Comment on above: Result Comment: Use of this assay is not recommended for patients undergoing treatment with phenindione, due to the potential for falsely depressed results. Performed By: #### C _ANA #### [facility] [address] [place], [place] [address] Albumin [Mass/Vol] 1.7 g/dL Low 3.4-5.0 [facility] Comment on above: Performed By: #### C _ANA #### [facility] [address] [place], [place] [address] Anion gap [Moles/Vol] 12 mmol/L Normal 8-16 [facility] Comment on above: Performed By: #### C _ANA #### [facility] [address] [place], [place] [address] Calcium [Mass/Vol] 7.1 mg/dL Low 8.5-10.1 [facility] Comment on above: Performed By: #### C _ANA #### [facility] [address] [place], [place] [address] CO2 [Moles/Vol] 21 mmol/L Normal 21-32 [facility] Comment on above: Performed By: #### C _ANA #### [facility] [address] [place], [place] [address] Glucose [Mass/Vol] 218 mg/dL High 70-99 [facility] Comment on above: Performed By: #### C _ANA #### [facility] [address] [place], [place] [address] Urea nitrogen [Mass/Vol] 31 mg/dL High 7-18 [facility] Comment on above: Performed By: #### C _ANA #### [facility] [address] [place], [place] [address] Chloride [Moles/Vol] 104 mmol/L Normal 98-107 [facility] Comment on above: Performed By: #### C _ANA #### [facility] [address] [place], [place] [address] Potassium [Moles/Vol] 4.1 mmol/L Normal 3.5-5.1 [facility] Comment on above: Performed By: #### C _ANA #### [facility] [address] [place], [place] [address] Sodium [Moles/Vol] 133 mmol/L Low 136-145 [facility] Comment on above: Performed By: #### C _ANA #### [facility] [address] [place], [place] [address] Cult and Smr CAROLINE and AERon 0 08-22-2019 Cult and Smr CAROLINE and AER Test performed at [facility] Rare Mixed skin javier. Moderate Mixed anaerobic javier. No Bacteroides fragilis group isolated. No Clostridium perfringens isolated. Many Gram positive cocci No WBC seen Rare Squamous epithelial cells Normal [facility] Comment on above: Performed By: #### C _ANA #### [facility] [address] [place] [address] Ferritinon 08-22-2019 Ferritin [Mass/Vol] 1342.20 ng/mL High 26.00-3 88.0 0 [facility] Comment on above: Performed By: #### F ERR #### [facility] [address] [place] [address] Folateon 08-22-2019 Folate 3.80 ng/mL Normal 3.10-17.50 [facility] Comment on above: Performed By: #### P 8 #### [facility] [address] [place] [address] Hemogramon 08-22-2019 Erythrocyte distribution width (RBC) [Ratio] 13.2 % Normal 11.6-14.4 [facility] Comment on above: Performed By: #### F ERR #### [facility] [address] [place] [address] Hematocrit (Bld) [Volume fraction] 28.4 % Low 40.1-51.0 [facility] Comment on above: Performed By: #### F ERR #### [facility] [address] [place] [address] Hemoglobin (Bld) [Mass/Vol] 9.4 g/dL Low 13.7-17.5 [facility] Comment on above: Performed By: #### F ERR #### [facility] [address] [place] [address] MCH (RBC) [Entitic mass] 28.7 pg Normal 25.7-32.2 [facility] Comment on above: Performed By: #### F ERR #### [facility] [address] [place] [address] MCHC (RBC) [Mass/Vol] 33.1 % Normal 32.3-36.5 [facility] Comment on above: Performed By: #### F ERR #### [place] [address] MCV (RBC) [Entitic vol] 86.9 fL Normal 83.2-95.6 [facility] Comment on above: Performed By: #### F ERR #### [facility] [address] [place] [address] Platelet mean volume (Bld) [Entitic vol] 9.7 fL Normal 8.7-12.0 [facility] Comment on above: Performed By: #### F ERR #### [facility] [address] [place] [address] Platelets (Bld) [#/Vol] 380 thou/cmm High 141-365 [facility] Comment on above: Performed By: #### F ERR #### [facility] [address] [place] [address] RBC (Bld) [#/Vol] 3.27 mil/cmm Low 4.63-6.08 [facility] Comment on above: Performed By: #### F ERR #### [facility] [address] [place] [address] RDW SD 41.6 fl Normal 36.1-45.8 [facility] Comment on above: Performed By: #### F ERR #### [facility] [address] [place] [address] WBC (Bld) [#/Vol] 19.76 thou/cmm High 4.23-9.07 [facility] Comment on above: Performed By: #### F ERR #### [facility] [address] [place] [address] Iron % Saturationon 08-22-19 20 Iron % Saturation 15 % Low 20-55 [facility] Comment on above: Performed By: #### M AG #### [place] [address] Iron Binding Cap. 150 ug/dL Low 250-450 [facility] Comment on above: Performed By: #### M AG #### [place] [address] Iron Serum 23 ug/dL Low 65-175 [facility] Comment on above: Performed By: #### M AG #### [place] [address] MRI FOOT/TOES WO IVCON RTon 08-22-2019 MRI FOOT/TOES WO IVCON RT * * *Final Rep ort* * * DATE OF EXAM: Aug 22 2019 12:23PM HUMPHREY [email or web address] - MRI FOOT/TOES WO IVCON RT / PROCEDURE REASON: Osteomyelitis suspected, foot swelling, no arthropathy, yes ulcer, diabetic pt * * * * Physician Interpretation * * * * EXAM TITLE: MRI RIGHT FOOT: DATE: 08/22/2019 COMPARISON: Radiographs performed at an outside institution one day ago CLINICAL INDICATION/HISTORY: Right foot necrosis. History of diabetes. TECHNIQUE: Multiplanar, multisequential MR imaging of the right foot performed without IV contrast. FINDINGS: Severely limited study due to motion artifact. Diffuse soft tissue air, presumably related to infection with a gas-forming organism, is present. Along the plantar aspect of the foot, this begins deep to the anterior process of the calcaneus and continues distally to the level of the distal metatarsals. There is diffuse fluid signal intensity noted throughout the plantar subcutaneous fat and subjacent soft tissues, possibly representing phlegmon. Soft tissue gas is also seen within the dorsum of the foot, beginning at approximately the level of the distal third metatarsal shaft and continuing caudally into the toes, most pronounced at the second and third. Diffuse infiltrative fluid signal intensity is seen throughout these regions as well which may also represent phlegmon. There is loss of soft tissue at the distal second toe with subjacent T1 and T2 hypointensity likely representing air. There may be cortical loss involving the distal aspect of the second distal phalanx. Otherwise, no obvious bone loss is present. However, there are scattered areas of osseous T1 hypointensity and T2 hyperintensity which could be reactive or represent early osteomyelitis. This is present at the second through fifth metatarsal head and neck and scattered throughout the toes. There is circumferential subcutaneous infiltration and edema at the ankle continuing throughout the foot. IMPRESSION: 1. Very limited study due to motion artifact. 2. Numerous foci of air are present throughout the foot as discussed, concerning for diffuse soft tissue infection with a gas-forming organism. 3. Tissue loss involving the distal second toe concerning for necrosis. 4. Somewhat ill-defined T2 hyperintensity throughout the foot which could represent phlegmonous material. No obvious abscess collection. 5. There may be early cortical loss involving the distal portion of the second distal phalanx concerning for osteomyelitis. 6. Scattered regions of abnormal signal involving the second through fifth metatarsal head and neck and scattered throughout the toes which could be reactive or related to early osteomyelitis. Assistant Golf Professional: ONEL Transcribe Date/Time: Aug 22 2019 12:47P Dictated by : PRISCILA REULAS MD This examination was interpreted and the report reviewed and electronically signed by: PRISCILA RUELAS MD on Aug 22 2019 1:06PM EST Normal [facility] NURSING PROGon 08-22-2019 NURSING PROG HNO ID: [id number] Author: Marita (Rn) KAVIN Aponte Service: Nursing Author Type: Registered Nurse Type: Nursing Progress Note Filed: 08/22/2019 2:17 PM Note Text: Dr. Parmar into see pt. Pt to be scheduled for angiogram tomorrow. Pt states understanding of procedure Normal [facility] NUTRITIONon 08-22-2019 NUTRITION HNO ID: [id number] Author: Marisol Zimmerman) ALEIDA Falcon Service: Nutrition Therapy Author Type: Registered Dietitian Type: Nutrition Filed: 08/22/2019 3:12 PM Note Text: NUTRITION THERAPY INITIAL ASSESSMENT SERVICE DATE: 08/22/2019 SERVICE TIME: 2:27 Nutrition Assessment: Recommended Malnutrition Diagnosis: Moderate Protein-Calorie Malnutrition In the context of: Acute Illness or Injury Based on: Muscle Loss;Subcutaneous Fat Loss;Insufficient Energy Intake;Decline in Functional Status;Unintentional Weight Loss Nutrition Diagnosis: Problem: Unintended weight loss Related to: Acute illness As evidenced by: Imaging studies;Depletion of fat/muscle stores;Patient/family self-report Estimated kilocalorie needs: [id number] Calorie Calculation Method: 30-35 kcals/kg Estimated protein needs (grams): 98-128 Grams protein determined by: 1.3-1.7 g/kg Care Plan: (CHO controlled 3-5 CARBS/MEAL) Supplements: Boost Glucose Control(daily) Monitor and Evaluation: Meet greater than 75% of estimated needs;Monitor labs, I/Os, vital signs, weight;Monitor bowel function;Monitor fluid/electrolyte balance Discharge Recommendations: Oral Supplements;Diet Diet: CARB control, low sodium Oral Supplements: per pt preferance HPI: Elizabeth Modi is 79 yo male with necrotic L foot wound, reports fevers, chills, and intermittent dizziness. Dry gangrene noted over plantar arch. PMH of DM, dyslipidemia, HTN, hypothyroidism, and PAD/PVD. Intake History: Current Intake: Less than 50% estimated energy needs over: few days -states "past few days I eat when I remember" -loss of appetite Current Diet: DIET CARBOHYDRATE CONTROLLED Anthropometrics: Height: 177.8 cm (5' 10") Weight: 85 kg (187 lb 6.3 oz) Dosing Weight: 75.5 kg (166 lb 7.2 oz) Body mass index is 26.89 kg/m?. Overweight Physical Exam: Subcutaneous fat loss: Mild Muscle loss: Moderate Potential micronutrient deficiency: Nails Edema/Ascites: No edema GI Symptoms: Anorexia Functional Status: Regressed Potential Signs of Inflammation: Hyperglycemia;Hypoalbu minemia;Imaging studies SIGNATURE: Evita Brandon PATIENT NAME: Elizabeth Modi DATE: August 22, 2019 TIME: 2:27 PM PAGER: [phone] Normal [facility] PROGRESSon 08-22-2019 PROGRESS HNO ID: [id number] Author: Sue Bianchi Service: Hospital Medicine Author Type: Physician Type: Progress Notes Filed: 08/22/2019 3:29 PM Note Text: DEPARTMENT OF HOSPITAL MEDICINE PROGRESS NOTE SERVICE DATE: 08/22/2019 SERVICE TIME: 2:32 PM Hospital Medicine/Primary Attending: Sue Bianchi, DO NIGHT AND WEEKEND COVERAGE: After 7pm, please call cross cover pager #[phone] Subjective INTERVAL HPI: Patient seen and examined. No acute events overnight. He reports minimal pain in the foot. Pending MRI and PVR. He has been seen by ortho and vascular surgery. No history of similar. MEDICATIONS: Reviewed Objective PHYSICAL EXAM: BP 122/55 Pulse 78 Temp (Src) 98.2 (Oral) Resp 18 Ht 5' 10" (1.78m) Wt 187 lb 6.3 oz (85.0kg) SpO2 94% BMI 26.89 kg/(m2). O2 Therapy: Room Air Physical Exam Performed Constitutional - Vitals as above, not in acute distress Resp - Clear to auscultate both sides, no wheezes, crackles or rales, no labored breathing CVS- RRR. No murmur, gallop or rub, pulse 2+ GI - NTND, bowel sounds normally heard, no mass palpable MANAGER AUDIO- cranial nerves 2 to 12 grossly intact, no focal motor or sensory deficits noted, speech normal Psych- A ANDO x 3, mood normal Skin- R lower extremity dressing intact, wound care notes and images reviewed Lines, Drains, and Airways Line Peripheral 08/21/192238 Assessment Left Antecubital 20 Gauge less than 1 day Peripheral 08/21/192239 Assessment Right Antecubital 20 Gauge less than 1 day Reviewed lines and needs to be continued: REASONS: Intravenous antibiotics DATA: Diagnostic tests reviewed for today's visit: Most recent labs and imaging results. Assessment/Plan #sepsis POA-secondary to foot infection, gangrene, continue vancomycin, zosyn and clindamycin for now, await culture data, surgical plans #RLE wound infection with wet gangrene and necrosis-MRI showing air, PVR completed-vascular surgery and orthopedics on board, likely plan for amputation per surgery, await final recs, ID following, monitor for any sign of worsening infection or spiking fever, patient comfortable with minimal pain at this time #leukocytosis-due to above, trend, continue IV antibiotics #anemia-will check iron studies, no prior available, no evidence bleeding, repeat in am #hx PAD-continue statin #DM 2- continue SSI, check a1c, hold po medication for now #hypothyroidism-contin ue synthroid #HTN-continue lisinopril #HLD-statin Medication and Non-Pharmacologic VTE Prophylaxis/Anticoagul ants Anticoagulant AND Antiplatelet Medications (From admission, onward) Start Dose Route Frequency Ordered Stop 08/21/19 1930 heparin 5,000 Units injection (Medical Risk Categories) 5,000 Units SUBCUTANEOUS EVERY 12 HOURS 08/21/191915 -- 08/21/191914 vte non-pharmacologic prophylaxis - none indicated (de,mi) 08/21/191914 activity - mobilize patient ([place]) VTE Prophylaxis: VTE prophylaxis appropriate Disposition: Home with [facility] Plan of care discussed with: Provider, RN, Patient SIGNATURE: Sue Bianchi DO PATIENT NAME: Elizabeth Modi DATE: August 22, 2019 TIME: 2:32 PM PAGER/CONTACT #: [phone] Normal [facility] US ARTERIAL PVR LOWERon US ARTERIAL PVR LOWER * * *Final Report* * * DATE OF EXAM: Aug 22 2019 10:00AM A2U 1107 - US ARTERIAL PVR LOWER / PROCEDURE REASON: necrotic right foot * * * * Physician Interpretation * * * * Non-Invasive Vascular Laboratory [facility] Lower Extremity Arterial Physiology Study Bilateral/Complete Date of service/time: 08/22/2019 9:04:00 AM Name: ELIZABETH MODI Date of : 1940 Age: 79 years Gender: M Medical History Tobacco: Former Hypertension: Yes Diabetes: Yes Clinical Indication Gangrene. TECHNIQUE -------- An arterial physiological examination was performed, including measurement of blood pressures using continuous wave Doppler and recording of plethysmographic with or without Doppler waveforms at the below-mentioned limb segments. FINDINGS -------- RIGHT SIDE AT REST Right Pressures Brachial: 133 mmHg High thigh: 55 mmHg Low thigh: 37 mmHg Calf: 40 mmHg Ankle dorsalis pedis: 39 mmHg BECKI: 0.29 Ankle posterior tibial: 0 mmHg BECKI: 0.00 Digit: 0 mmHg Right PVR Waveforms High thigh: Mildly dampened. Low thigh: Mildly dampened. Calf: Moderately dampened. Ankle: Severely dampened. Transmetatarsal: Severely dampened. Digit: Severely dampened. LEFT SIDE AT REST Left Pressures Brachial: 133 mmHg High thigh: 125 mmHg Low thigh: 71 mmHg Calf: greater than 254 mmHg Ankle dorsalis pedis: 93 mmHg BECKI: 0.70 Ankle posterior tibial: greater than 254 mmHg BECKI: 1.91 Digit: 0 mmHg Left PVR Waveforms High thigh: Mildly dampened. Low thigh: Mildly dampened. Calf: Moderately dampened. Ankle: Severely dampened. Transmetatarsal: Severely dampened. Digit: Severely dampened. IMPRESSION RIGHT SIDE Resting right ankle brachial index: 0.29 Right toe brachial index: 0.00 Abnormal ankle brachial index at rest diagnostic of peripheral artery disease. Right ankle: Severe disease at rest. Right iliofemoral disease. Right superficial femoral disease may also be present. Right distal superficial femoral and/or popliteal disease. Right infrapopliteal disease. Right small vessel disease. LEFT SIDE Resting left ankle brachial index: 1.91 Left toe brachial index: 0.00 Abnormal ankle brachial index at rest diagnostic of peripheral artery disease. 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 Calcific disease at the calf and ankle levels is also noted. Left ankle: Mild disease at rest. Left iliofemoral disease is likely minimal given waveforms and thigh index of 0.94. Left superficial femoral disease. Left distal superficial femoral and/or popliteal disease. Left infrapopliteal disease. Left small vessel disease. Technologist: Josefa Sweeney RVT Ordering physician: ARA SINGER Interpreting physician: Ryan Allen MD Final RP Assistant Golf Professional: RICHARD Transcribe Date/Time: Aug 22 2019 9:04A Dictated by : RYAN ALLEN MD This examination was interpreted and the report reviewed and electronically signed by: RYAN ALLEN MD on Aug 22 2019 11:41AM EST Normal [facility] Vitamin B12on 08-22-2019 Cobalamin (Vitamin B12) [Mass/Vol] 944 pg/mL Normal [id number] [facility] Comment on above: Performed By: #### P 8 #### [place] [address] CONSULT PROGon 08-21-2019 CONSULT PROG HNO ID: [id number] Author: Rahat Lemus (Pharmacist) Service: Pharmacy Author Type: Pharmacist Type: Consult Progress Note Filed: 08/21/2019 9:20 PM Note Text: Renal Dose Monitoring 1. Estimated CrCl: 52 (calculated from previous lab reported from of 1.2 and using IBW) 2. Recommendations: Zosyn 3.375g Dose:No Change Frequency:Increase frequency to Q6H - Rationale: Patient CrCl is greater than 40 and being infused over 30 minutes Pharmacy [id number] [facility] CONSULT PROG HNO ID: [id number] Author: Rahat Lemus (Pharmacist) Service: Pharmacy Author Type: Pharmacist Type: Consult Progress Note Filed: 08/21/2019 9:11 PM Note Text: PHARMACY VANCOMYCIN DOSING NOTE Patient Name: Elizabeth Modi Admission Date: 08/21/2019 Date of Consult: 08/21/2019 Time of Consult: 9:01 PM Indication: Skin/Soft tissue infection Goal Range: 10-20 mcg/mL RECOMMENDATIONS/PLAN: Pharmacy consulted for vancomycin dosing for Elizabeth Modi, a 79 year old, male who is being treated with vancomycin for skin/soft tissue infection (rule out osteomyelitis). 1. Patient is currently ordered Vancomycin 1.25 g IV q12h. Today is day 1 of therapy. (Attempt to get further history as to if patient has received other doses at previous hospital.) 2. No vancomycin level has been drawn for this dosing regimen. 3. The present dose of vancomycin is the recommended dosage for this patient at this time. Continue therapy as prescribed. 4. The next vancomycin level will be ordered for 08/23/2019 prior to the 5th dose unless clinically indicated sooner. (Pharmacy will order) We will follow patient renal function, vancomycin levels and doses with you during the course of therapy. Additional recommendations will appear in follow up notes. If [place] have [place] [phone]. Age: [age] year old Allergies: ALLERGIES No Known Allergies Last 3 Encounter Wt Readings: Date: Wt: 08/21/2019 85 kg (187 lb 6.3 oz) Last 1 Encounter Ht Readings: Date: Ht: 08/21/2019 177.8 cm (5' 10") CrCl: 52 mL/min (calculated using IBW and ScR 1.2 (per MD from another facility)) Temp (24hrs), Av.6 ?C (97.9 ?F), Min:36.6 ?C (97.9 ?F), Max:36.6 ?C (97.9 ?F) - Current Temp: 36.6 ?C (97.9 ?F) Labs No results found for: BUN, CREATNo results found for: WBC Baseline labs are ordered for 08/22/2019 @ 0600 Vancomycin Levels: No results found for: PEGGY LEMUS, PHARMACIST Normal [facility] HISTORY PHYSICALon 0 HISTORY PHYSICAL HNO ID: [id number] Author: Karyna Perez Service: Hospital Medicine Author Type: Physician Type: HANDP Filed: 08/22/2019 6:11 AM Note Text: DEPARTMENT OF HOSPITAL MEDICINE HISTORY AND PHYSICAL EXAM AUTHOR: Karyna Perez MD PATIENT NAME: Elizabeth Modi DATE: August 21, 2019 , : 1940 Primary Care Physician: No primary care provider on file. NIGHT AND WEEKEND COVERAGE: From 7am - 7pm, please call Sound Physician on duty After 7pm, please call cross cover pager #[phone] Subjective CHIEF COMPLAINT / REASON FOR ADMISSION: Right foot gangrene HPI: This is a 79 year old male has a past medical history of DM (diabetes mellitus) (HCC), Dyslipidemia, HTN (hypertension), and Hypothyroidism. sent as a transfer from [facility] for blackish coloration of multiple toe and sole of the right feet for last few weeks prior to arrival to the hospital. Initially the foot was dry with discoloration but now it getting wet and foul smelling. Feels subjective chills but no fever reported. Patient sees his doctor irregularly and does not remember seeing a foot doctor in last year. In the ED patient found to have infeted wet gangrene in the right foot and was sent to [facility] for further evaluation.For this illness, patient's functional status has declined from baseline and have some difficulty in performing ADLs. The patient was seen and examined at bedside, appears alert and awake with no acute distress and is able to answer simple questions. On direct questioning, patient denied any resting ongoing chest pain, resting SOB, hemoptysis, productive cough, fever, ongoing palpitation, active abdominal pain, hematemesis, rectal bleeding, emelyn, hematuria, any other and GI complaints and any new focal neuro deficits . PAST MEDICAL HISTORY Diagnosis Date - DM (diabetes mellitus) (HCC) - Dyslipidemia - HTN (hypertension) - Hypothyroidism No past surgical history on file. No family history on file. Family History: Reviewed and no pertinent family history Social History Tobacco Use - Smoking status: Not on file Substance Use Topics - Alcohol use: Not on file - Drug use: Not on file TOBHX Tobacco Use: Not on file ALCHX Alcohol Use: Not on file DRUGHX Drug Use: Not on file ALLERGIES: ALLERGIES No Known Allergies HOME MEDICATIONS: atorvastatin (LIPITOR) 40 mg tablet, Take 40 mg by mouth once daily., Disp: , Rfl: levothyroxine (SYNTHROID) 25 mcg tablet, Take 25 mcg by mouth once daily., Disp: , Rfl: lisinopril (ZESTRIL, PRINIVIL) 10 mg tablet, Take 10 mg by mouth once daily., Disp: , Rfl: pioglitazone (ACTOS) 30 mg tablet, Take 30 mg by mouth once daily., Disp: , Rfl: metFORMIN (GLUCOPHAGE) 1,000 mg tablet, Take 1,000 mg by mouth twice daily., Disp: , Rfl: glimepiride (AMARYL) 4 mg tablet, Take 4 mg by mouth twice daily., Disp: , Rfl: MEDICATIONS: Current Facility-Administered Medications Medication Dose Route Frequency - heparin 5,000 Units injection 5,000 Units SUBCUTANEOUS q 12 H - NaCl 0.9% iv infusion 75 mL/hr INTRAVENOUS CONTINUOUS - aluminum-magnesium hydroxide-simethicone 200-200-20 mg/5 mL 30 mL (MAALOX,MYLANTA,MAG-AL PLUS) 30 mL ORAL DAILY PRN - ondansetron 4 mg tab(s) (ZOFRAN) 4 mg ORAL q 6 H PRN Or - ondansetron (PF) 4 mg injection (ZOFRAN) 4 mg INTRAVENOUS q 6 H PRN - polyethylene glycol 3350 17 g packet (MIRALAX, GLYCOLAX) 17 g ORAL DAILY PRN - docusate sodium 100 mg cap(s) (COLACE) 100 mg ORAL BID PRN - magnesium hydroxide 400 mg/5 mL 30 mL (MOM) 30 mL ORAL DAILY PRN - bisacodyl 10 mg suppository (DULCOLAX) 10 mg RECTAL DAILY PRN - acetaminophen 650 mg tab(s) (TYLENOL) 650 mg ORAL q 6 H PRN - atorvastatin 40 mg tab(s) (LIPITOR) 40 mg ORAL DAILY - lisinopril 10 mg tab(s) (ZESTRIL, PRINIVIL) 10 mg ORAL DAILY - levothyroxine 25 mcg tab(s) (SYNTHROID) 25 mcg ORAL DAILY - insulin lispro pen (rapid acting) (HumaLOG KWIKPEN) SUBCUTANEOUS w MEALS AND HS - dextrose 40 % 15 g 15 g ORAL PRN Or - glucagon 1 mg injection (GLUCAGEN) 1 mg INTRAMUSCULAR PRN Or - dextrose 50% in water 25 mL syringe 12.5 g INTRAVENOUS PRN - vancomycin iv piggyback 1.25 g in D5W 250 mL (VANCOCIN) 1.25 g INTRAVENOUS q 12 HR - vancomycin dosing and monitoring per pharmacy OTHER As Directed - piperacillin-tazobacta m iv piggyback 3.375 g in dextrose (iso-osmotic) 50 mL (ZOSYN) 3.375 g INTRAVENOUS q 6 H - clindamycin iv piggyback 600 mg in D5W 50 mL (CLEOCIN) 600 mg INTRAVENOUS q 6 H ROS: Pertinent positives and negatives are noted in the HPI, all other systems are reviewed and negative Objective Vitals: BP 120/50 Pulse 84 Temp (Src) 97.5 (Temporal Artery) Resp 16 Ht 5' 10" (1.78m) Wt 187 lb 6.3 oz (85.0kg) SpO2 98% BMI 26.89 kg/(m2). O2 Therapy: Room Air Physical Exam: GENERAL: No acute distress, Alert and awake, Afebrile, Appears tired and weak otherwise hemodynamically stable at present. HEENT: PERRLA, no icterus. OP clear and no exudates. NECK: Supple, There is no LAD or thyromegaly. no carotid/ophthalmic bruits, JVD None. RESPIRATORY: Bilateral equal vesicular breath sound with no wheezing. Lung bases are clear. HEART: No tachycardia at bedside and regular rhythm. Normal S1 and S2, No S3 or S4 is audible. No pulsation, thrills, murmur or friction rubs. ABDOMEN: Soft, nondistended, nontender. No hepatomegaly or splenomegaly. No CVA tenderness on the both sides. Bowel sound is present. EXTREMITIES: All peripheral pulses are present. Right foot is black in 4th and 5th toe with additional blackish discoloration the the sole. No gas or crepitus felt. Has foul smelling discharge. NEUROLOGY: Alert and awake. No new focal neuro deficit. Bilateral Pupil is equal and reactive to light. CN-ii-xii otherwise grossly intact. Motor and Sensory: Grossly Intact bilaterally with no new focal signs Admission Lab/Imaging/Procedure workup: Available labs/imaging/test results were reviewed by me. Most recent labs and imaging results. Results for orders placed or performed during the hospital encounter of 08/21/19 GLUCOSE, BLOOD (POC) Result Value Ref Range GLUCOSE METER 161 (H) 70 - 99 mg/dL Present on Admission: - Gangrene of foot (HCC) - Diabetes (HCC) - HTN (hypertension) - Dyslipidemia - Hypothyroidism Assessment/Plan # Gangrenous toes /foot secondary to diabetes vs PAD/PVD: rule out sepsis There is obvious serosanguinous drainage with foul smelling with poorly demarketed border No associated systemic signs - fever Sent Blood culture Started on IV Vano + Zosyn +Clindaycin -pending culture report and ID consult, as needed Wound care and wound care consult Vascular Surgery consult for evaluation for wound care vs debridement vs amputation Arterial Doppler ordered. F/u report and if needed, Plan for MRI foot - in AM, as per Vascular Surgery and ID team # DM moderately controlled On Low carb diet Hold home PO meds for now Placed on sliding scale inulin Bedside glucose before meals and bedtime and adjust insulin accordingly # Hypertension Currently better controlled Will resume home medications as needed. Monitor vitals and adjust BP meds as needed # Hypothyroid No active complaints Continue home dose of thyroid meds Will adjust the dose as needed # Rest of the chronic medical problems are stable and will be managed with appropriately with home medications, placed nursing communication order to verify home medications before giving them to the patient. # Diet: On PO Diet # IVF's: Yes # Fall Precaution: Yes # Disposition: Home/primary residence # Code Status: Full code by default # DVT Prophylaxis : Heparin SQ Anticoagulant AND Antiplatelet Medications (From admission, onward) Start Dose Route Frequency Ordered Stop 08/21/19 1930 heparin 5,000 Units injection (Medical Risk Categories) 5,000 Units SUBCUTANEOUS EVERY 12 HOURS 08/21/19 1916 -- The patient at bedside was counseled about clinical status, laboratory/imaging results, diagnoses, medication side effects, risk, and treatment plan, all questions were answered to patient's satisfaction and verbalized understanding SIGNATURE: Karyna Perez MD PATIENT NAME: Elizabeth Modi PAGER/CONTACT #: After 7 pm [phone] Disclaimer: Portions of this note may have been generated using [employer] voice recognition software. Reasonable efforts were made to correct any dictation errors that resulted due to the programming of this software but some may still be present. Normal [facility] HOSPon 08-21-2019 HOSP Patient:Elizabeth Modi MRN: Height:5' 10"(1.778 m) Weight:194 lb 6.4 oz (88.179 kg) Outpatient Medications as of 09/05/19: atorvastatin (LIPITOR) 40 mg tablet levothyroxine (SYNTHROID) 25 mcg tablet lisinopril (ZESTRIL, PRINIVIL) 10 mg tablet pioglitazone (ACTOS) 30 mg tablet metFORMIN (GLUCOPHAGE) 1,000 mg tablet glimepiride (AMARYL) 4 mg tablet Admission/Clinic Administered Medications as of 09/05/19: potassium phosphate 30 mmol in NaCl 0.9% 250 mL oxyCODONE IR 5 mg tab(s) (ROXICODONE) calcium carbonate 1,000 mg chewable tab(s) (TUMS) dextrose 5% in NaCl 0.9% iv infusion acetaminophen 975 mg tab(s) (TYLENOL) aspirin 81 mg chewable tab(s) heparin 5,000 Units injection metoprolol succinate ER 50 mg tab(s) (TOPROL XL) insulin lispro 4 Units pen (rapid acting) (HumaLOG KWIKPEN) gabapentin 100 mg cap(s) (NEURONTIN) insulin lispro pen (rapid acting) (HumaLOG KWIKPEN) glimepiride 4 mg tab(s) (AMARYL) metFORMIN 1,000 mg tab(s) (GLUCOPHAGE) insulin glargine 10 Units pen (long acting) (LANTUS SOLOSTAR, BASAGLAR KWIKPEN) ondansetron 4 mg tab(s) (ZOFRAN) ondansetron (PF) 4 mg injection (ZOFRAN) polyethylene glycol 3350 17 g packet (MIRALAX, GLYCOLAX) docusate sodium 100 mg cap(s) (COLACE) magnesium hydroxide 400 mg/5 mL 30 mL (MOM) bisacodyl 10 mg suppository (DULCOLAX) atorvastatin 40 mg tab(s) (LIPITOR) lisinopril 10 mg tab(s) (ZESTRIL, PRINIVIL) levothyroxine 25 mcg tab(s) (SYNTHROID) dextrose 40 % 15 g glucagon 1 mg injection (GLUCAGEN) dextrose 50% in water 25 mL syringe Problem List: Gangrene of foot (HCC) [I96] Diabetes (HCC) [E11.9] HTN (hypertension) [I10] Dyslipidemia [E78.5] Hypothyroidism [E03.9] Malnutrition of moderate degree (HCC) [E44.0] Allergies: No Known Allergies Date Verified:09/05/19 Lab Values Lab Value Units Date High Low POTA* 4.1 mEq/L 09/05/2019 5.1 3.5 JAMIN* 25.4 % 09/05/2019 51.0 40.1 Progress Notes (): Karyna Perez MD 08/22/2019 6:11 AM Signed DEPARTMENT OF HOSPITAL MEDICINE HISTORY AND PHYSICAL EXAM AUTHOR: Karyna Perez MD PATIENT NAME: Elizabeth Modi DATE: August 21, 2019 , : 1940 Primary Care Physician: No primary care provider on file. NIGHT AND WEEKEND COVERAGE: From 7am - 7pm, please call Sound Physician on duty After 7pm, please call cross cover pager #[phone] Subjective CHIEF COMPLAINT / REASON FOR ADMISSION: Right foot gangrene HPI: This is a 79 year old male has a past medical history of DM (diabetes mellitus) (HCC), Dyslipidemia, HTN (hypertension), and Hypothyroidism. sent as a transfer from [facility] for blackish coloration of multiple toe and sole of the right feet for last few weeks prior to arrival to the hospital. Initially the foot was dry with discoloration but now it getting wet and foul smelling. Feels subjective chills but no fever reported. Patient sees his doctor irregularly and does not remember seeing a foot doctor in last year. In the ED patient found to have infeted wet gangrene in the right foot and was sent to [facility] for further evaluation.For this illness, patient's functional status has declined from baseline and have some difficulty in performing ADLs. The patient was seen and examined at bedside, appears alert and awake with no acute distress and is able to answer simple questions. On direct questioning, patient denied any resting ongoing chest pain, resting SOB, hemoptysis, productive cough, fever, ongoing palpitation, active abdominal pain, hematemesis, rectal bleeding, emelyn, hematuria, any other and GI complaints and any new focal neuro deficits . PAST MEDICAL HISTORY Diagnosis Date - DM (diabetes mellitus) (HCC) - Dyslipidemia - HTN (hypertension) - Hypothyroidism No past surgical history on file. No family history on file. Family History: Reviewed and no pertinent family history Social History Tobacco Use - Smoking status: Not on file Substance Use Topics - Alcohol use: Not on file - Drug use: Not on file TOBHX Tobacco Use: Not on file ALCHX Alcohol Use: Not on file DRUGHX Drug Use: Not on file ALLERGIES: ALLERGIES No Known Allergies HOME MEDICATIONS: atorvastatin (LIPITOR) 40 mg tablet, Take 40 mg by mouth once daily., Disp: , Rfl: levothyroxine (SYNTHROID) 25 mcg tablet, Take 25 mcg by mouth once daily., Disp: , Rfl: lisinopril (ZESTRIL, PRINIVIL) 10 mg tablet, Take 10 mg by mouth once daily., Disp: , Rfl: pioglitazone (ACTOS) 30 mg tablet, Take 30 mg by mouth once daily., Disp: , Rfl: metFORMIN (GLUCOPHAGE) 1,000 mg tablet, Take 1,000 mg by mouth twice daily., Disp: , Rfl: glimepiride (AMARYL) 4 mg tablet, Take 4 mg by mouth twice daily., Disp: , Rfl: MEDICATIONS: Current Facility-Administered Medications Medication Dose Route Frequency - heparin 5,000 Units injection 5,000 Units SUBCUTANEOUS q 12 H - NaCl 0.9% iv infusion 75 mL/hr INTRAVENOUS CONTINUOUS - aluminum-magnesium hydroxide-simethicone 200-200-20 mg/5 mL 30 mL (MAALOX,MYLANTA,MAG-AL PLUS) 30 mL ORAL DAILY PRN - ondansetron 4 mg tab(s) (ZOFRAN) 4 mg ORAL q 6 H PRN Or - ondansetron (PF) 4 mg injection (ZOFRAN) 4 mg INTRAVENOUS q 6 H PRN - polyethylene glycol 3350 17 g packet (MIRALAX, GLYCOLAX) 17 g ORAL DAILY PRN - docusate sodium 100 mg cap(s) (COLACE) 100 mg ORAL BID PRN - magnesium hydroxide 400 mg/5 mL 30 mL (MOM) 30 mL ORAL DAILY PRN - bisacodyl 10 mg suppository (DULCOLAX) 10 mg RECTAL DAILY PRN - acetaminophen 650 mg tab(s) (TYLENOL) 650 mg ORAL q 6 H PRN - atorvastatin 40 mg tab(s) (LIPITOR) 40 mg ORAL DAILY - lisinopril 10 mg tab(s) (ZESTRIL, PRINIVIL) 10 mg ORAL DAILY - levothyroxine 25 mcg tab(s) (SYNTHROID) 25 mcg ORAL DAILY - insulin lispro pen (rapid acting) (HumaLOG KWIKPEN) SUBCUTANEOUS w MEALS AND HS - dextrose 40 % 15 g 15 g ORAL PRN Or - glucagon 1 mg injection (GLUCAGEN) 1 mg INTRAMUSCULAR PRN Or - dextrose 50% in water 25 mL syringe 12.5 g INTRAVENOUS PRN - vancomycin iv piggyback 1.25 g in D5W 250 mL (VANCOCIN) 1.25 g INTRAVENOUS q 12 HR - vancomycin dosing and monitoring per pharmacy OTHER As Directed - piperacillin-tazobacta m iv piggyback 3.375 g in dextrose (iso-osmotic) 50 mL (ZOSYN) 3.375 g INTRAVENOUS q 6 H - clindamycin iv piggyback 600 mg in D5W 50 mL (CLEOCIN) 600 mg INTRAVENOUS q 6 H ROS: Pertinent positives and negatives are noted in the HPI, all other systems are reviewed and negative Objective Vitals: BP 120/50 Pulse 84 Temp (Src) 97.5 (Temporal Artery) Resp 16 Ht 5' 10" (1.78m) Wt 187 lb 6.3 oz (85.0kg) SpO2 98% BMI 26.89 kg/(m2). O2 Therapy: Room Air Physical Exam: GENERAL: No acute distress, Alert and awake, Afebrile, Appears tired and weak otherwise hemodynamically stable at present. HEENT: PERRLA, no icterus. OP clear and no exudates. NECK: Supple, There is no LAD or thyromegaly. no carotid/ophthalmic bruits, JVD None. RESPIRATORY: Bilateral equal vesicular breath sound with no wheezing. Lung bases are clear. HEART: No tachycardia at bedside and regular rhythm. Normal S1 and S2, No S3 or S4 is audible. No pulsation, thrills, murmur or friction rubs. ABDOMEN: Soft, nondistended, nontender. No hepatomegaly or splenomegaly. No CVA tenderness on the both sides. Bowel sound is present. EXTREMITIES: All peripheral pulses are present. Right foot is black in 4th and 5th toe with additional blackish discoloration the the sole. No gas or crepitus felt. Has foul smelling discharge. NEUROLOGY: Alert and awake. No new focal neuro deficit. Bilateral Pupil is equal and reactive to light. CN-ii-xii otherwise grossly intact. Motor and Sensory: Grossly Intact bilaterally with no new focal signs Admission Lab/Imaging/Procedure workup: Available labs/imaging/test results were reviewed by me. Most recent labs and imaging results. Results for orders placed or performed during the hospital encounter of 08/21/19 GLUCOSE, BLOOD (POC) Result Value Ref Range GLUCOSE METER 161 (H) 70 - 99 mg/dL Present on Admission: - Gangrene of foot (HCC) - Diabetes (HCC) - HTN (hypertension) - Dyslipidemia - Hypothyroidism Assessment/Plan # Gangrenous toes /foot secondary to diabetes vs PAD/PVD: rule out sepsis There is obvious serosanguinous drainage with foul smelling with poorly demarketed border No associated systemic signs - fever Sent Blood culture Started on IV Vano + Zosyn +Clindaycin -pending culture report and ID consult, as needed Wound care and wound care consult Vascular Surgery consult for evaluation for wound care vs debridement vs amputation Arterial Doppler ordered. F/u report and if needed, Plan for MRI foot - in AM, as per Vascular Surgery and ID team # DM moderately controlled On Low carb diet Hold home PO meds for now Placed on sliding scale inulin Bedside glucose before meals and bedtime and adjust insulin accordingly # Hypertension Currently better controlled Will resume home medications as needed. Monitor vitals and adjust BP meds as needed # Hypothyroid No active complaints Continue home dose of thyroid meds Will adjust the dose as needed # Rest of the chronic medical problems are stable and will be managed with appropriately with home medications, placed nursing communication order to verify home medications before giving them to the patient. # Diet: On PO Diet # IVF's: Yes # Fall Precaution: Yes # Disposition: Home/primary residence # Code Status: Full code by default # DVT Prophylaxis : Heparin SQ Anticoagulant AND Antiplatelet Medications (From admission, onward) Start Dose Route Frequency Ordered Stop 08/21/19 1930 heparin 5,000 Units injection (Medical Risk Categories) 5,000 Units SUBCUTANEOUS EVERY 12 HOURS 08/21/19 1916 -- The patient at bedside was counseled about clinical status, laboratory/imaging results, diagnoses, medication side effects, risk, and treatment plan, all questions were answered to patient's satisfaction and verbalized understanding SIGNATURE: Karyna Perez MD PATIENT NAME: Elizabeth Modi PAGER/CONTACT #: After 7 pm [phone] Disclaimer: Portions of this note may have been generated using [employer] voice recognition software. Reasonable efforts were made to correct any dictation errors that resulted due to the programming of this software but some may still be present. Previous Version RAHAT LEMUS, PHARMACIST 08/21/2019 9:11 PM Signed PHARMACY VANCOMYCIN DOSING NOTE Patient Name: Elizabeth Modi Admission Date: 08/21/2019 Date of Consult: 08/21/2019 Time of Consult: 9:01 PM Indication: Skin/Soft tissue infection Goal Range: 10-20 mcg/mL RECOMMENDATIONS/PLAN: Pharmacy consulted for vancomycin dosing for Elizabeth Modi, a 79 year old, male who is being treated with vancomycin for skin/soft tissue infection (rule out osteomyelitis). 1. Patient is currently ordered Vancomycin 1.25 g IV q12h. Today is day 1 of therapy. (Attempt to get further history as to if patient has received other doses at previous hospital.) 2. No vancomycin level has been drawn for this dosing regimen. 3. The present dose of vancomycin is the recommended dosage for this patient at this time. Continue therapy as prescribed. 4. The next vancomycin level will be ordered for 08/23/2019 prior to the 5th dose unless clinically indicated sooner. (Pharmacy will order) We will follow patient renal function, vancomycin levels and doses with you during the course of therapy. Additional recommendations will appear in follow up notes. If [place] [phone]. Age: [age] year old Allergies: ALLERGIES No Known Allergies Last 3 Encounter Wt Readings: Date: Wt: 08/21/2019 85 kg (187 lb 6.3 oz) Last 1 Encounter Ht Readings: Date: Ht: 08/21/2019 177.8 cm (5' 10") CrCl: 52 mL/min (calculated using IBW and ScR 1.2 (per MD from another facility)) Temp (24hrs), Av.6 ?C (97.9 ?F), Min:36.6 ?C (97.9 ?F), Max:36.6 ?C (97.9 ?F) - Current Temp: 36.6 ?C (97.9 ?F) Labs No results found for: BUN, CREATNo results found for: WBC Baseline labs are ordered for 08/22/2019 @ 0600 Vancomycin Levels: No results found for: PEGGY LEMUS, PHARMACIST RAHAT LEMUS, PHARMACIST 08/21/2019 9:20 PM Signed Renal Dose Monitoring 1. Estimated CrCl: 52 (calculated from previous lab reported from MD of 1.2 and using IBW) 2. Recommendations: Zosyn 3.375g Dose:No Change Frequency:Increase frequency to Q6H - Rationale: Patient CrCl is greater than 40 and being infused over 30 minutes Pharmacy [id number] Ana Luisa Crooks MD 08/22/2019 6:04 AM Attested Attestation signed by Jovanny Parmar at 08/22/2019 2:37 PM Attending Note I personally saw and examined the patient. I reviewed the resident's note. I agree with the resident's assessment and plan unless otherwise noted. Seen by podiatry - does not have sufficient tissue to heal a TMA. PVRs reviewed - will need further imaging to determine possible level of amputation. Will schedule for angiogram tomorrow 08/23/19 Signature: Jovanny Parmar MD Date: 08/22/2019 Time: 2:37 PM VASCULAR SURGERY CONSULT NOTE Vascular AND Thoracic Surgery Service Pager: For questions or concerns Mon-Fri 6a-5p please page [phone]. After 5pm and on Weekends and Holidays, please page [phone] if in ICU or [phone] if on RNF. Service date: 08/22/2019 Service time: 4:01 AM Reason for consult: foot wounds Nature of consult: routine Subjective HPI Mr. Modi is a 79 year old male with necrotic L foot. Patient reports that he has only noticed this over the last week. Initially presented to [facility] for this reason and was transferred to [facility] for care. Denies pain and states he is still able to walk on it. Reports fevers and chills. Denies previous similar episodes although he did present with claudication symptoms about twenty years ago and was advised to seek care for PVD at that time. He has never seen a vascular surgeon. Has had significant decrease in his walking capacity, is able to get around his trailer home He also reports intermittent dizziness with turning his head sharply to the right that he noticed around the same time. Last time this occurred was about one month ago. He was told this was due to a stone in the ear Denies cardiac history History of about 20 pk years Denies AC/AP at home PAST MEDICAL HISTORY Diagnosis Date - DM (diabetes mellitus) (HCC) - Dyslipidemia - HTN (hypertension) - Hypothyroidism No past surgical history on file. No family history on file. Allergies As of Date: 08/21/2019 (No Known Allergies) Fully Assessed 08/21/2019 Complete ten point review of systems completed and negative aside from noted in HPI. Objective PHYSICAL EXAM Physical Exam Performed: Ambulatory status:short distances Mental status: Alert and Oriented x 3 GENERAL: Alert, no distress, cooperative SKIN: Skin color, texture, turgor normal. No rashes or lesions. HEAD/SINUSES: No significant findings EYES: PERRLA, EOMI NECK: No jugulovenous distention, Supple LUNGS: RA, no cough or wheeze CARDIAC: Rhythm: regular rate and rhythm ABDOMEN: Soft, nontender EXTREMITIES: necrotic area over dorsal aspect across all R toes. Dry gangrene noted over plantar arch NEURO: Cranial nerves II-XII intact PULSES: 2+ radial, doppler signal PT bilaterally, AT R side BP 120/50 Pulse 84 Temp (Src) 97.5 (Temporal Artery) Resp 16 Ht 5' 10" (1.78m) Wt 187 lb 6.3 oz (85.0kg) SpO2 98% BMI 26.89 kg/(m2). O2 Therapy: Room Air DATA Recent labs and imaging reviewed US ART DUPL LOWER EXT RT (Results Pending) MRI FOOT/TOES WO IVCON RT (Results Pending) Impression/Recommendat ions ASSESSMENT AND PLAN 79 year old male with PMH thyroid disease, HTN, dyslipidemia, DM, claudication who presents with necrosis of R foot Necrosis of foot - patient clinically stable and currently non septic appearing, labs still pending - PVRs to determine perfusion of distal extremities - recommend podiatry evaluation for less aggressive measures than BKA - surgical intervention planning pending workup Discussed above plan with attending, Dr Parmar SIGNATURE: Ana Luisa Crooks MD PATIENT NAME: Elizabeth Modi DATE: August 22, 2019 TIME: 4:01 AM PAGER: see below Vascular AND Thoracic Surgery Service Pager: For questions or concerns Mon-Fri 6a-5p please page [phone]. After 5pm and on Weekends and Holidays, please page [phone] if in ICU or [phone] if on RNF. Previous Version Jose Walton Pharmacist 08/22/2019 9:21 AM Addendum PHARMACY VANCOMYCIN DOSING NOTE Patient Name: Elizabeth Modi Admission Date: 08/21/2019 Date of Consult: 08/22/2019 Time of Consult: 9:14 AM Indication: Skin/Soft tissue infection Goal Range: 10-20 mcg/mL RECOMMENDATIONS/PLAN: Pharmacy consulted for vancomycin dosing for Elizabeth Modi, a 79 year old, male who is being treated with vancomycin for Skin/Soft tissue infection 1. Patient is currently ordered Vancomycin 1.25 g IV q12h. Today is day # of therapy, but first dose was not given until 0830 today. I could not get RN to tell why dose was not given yesterday as ordered. 2. No vancomycin level has been drawn for this dosing regimen. 3. The present dose of vancomycin is the recommended dosage for this patient at this time. Continue therapy as prescribed. 4. The next vancomycin level has been ordered for 08/23/19 @ 1900 prior to 4th dose-obese geriatric patient with changing renal function, and leukocytosis. (Completed) We will follow patient renal function, vancomycin levels and doses with you during the course of therapy. Additional recommendations will appear in follow up notes. If you have any questions, please contact Pharmacy at [phone]. Age: [age] year old Allergies: ALLERGIES No Known Allergies Last 3 Encounter Wt Readings: Date: Wt: 08/21/2019 85 kg (187 lb 6.3 oz) Last 1 Encounter Ht Readings: Date: Ht: 08/21/2019 177.8 cm (5' 10") CrCl: 66.2 mL/min Temp (24hrs), Av.6 ?C (97.9 ?F), Min:36.4 ?C (97.5 ?F), Max:36.8 ?C (98.2 ?F) - Current Temp: 36.8 ?C (98.2 ?F) Labs BUN (mg/dL) Date Value 08/22/2019 31 (H) Creatinine (mg/dL) Date Value 08/22/2019 0.95 WBC (thou/cmm) Date Value 08/22/2019 19.76 (H) Vancomycin Levels: No results found for: PEGGY Walton, Pharmacist Pager: [phone] Previous Version Adali Murry APRN.MANAGER AUDIO 08/22/2019 11:19 AM Signed WOUND CARE CONSULT CARDIOGRAPHER NOTE SERVICE DATE: 08/22/2019 SERVICE TIME: 0910 TIME SPENT (minutes): 30 REASON FOR CONSULT: Eval R foot necrosis/wound CHIEF COMPLAINT: c/o necrotic toes and tissue to R foot. Subjective HISTORY OF PRESENT ILLNESS: Mr. Modi is a 79 year old male who is seen today with Yolanda Jackman Wound/continuous improvement manager, and presented to hospital with complaints of necrotic R foot. Pt states his R toes began turning black 1 week ago, pt w/ known DM, PAD and PVD. Denies pain to foot. PERTINENT REVIEW OF SYSTEMS: GENERAL: Denies NVD, F/C PAIN ASSESSMENT: denies pain to wound SKIN: R foot necrotic W/ odor RESPIRATORY: Denies SOB PAST MEDICAL HISTORY Diagnosis Date - DM (diabetes mellitus) (HCC) - Dyslipidemia - HTN (hypertension) - Hypothyroidism PAD/PVD No past surgical history on file. Social History Tobacco Use - Smoking status: Not on file Substance Use Topics - Alcohol use: Not on file - Drug use: Not on file No family history on file. MEDICATIONS: Current Facility-Administered Medications Medication Dose Route Frequency - heparin 5,000 Units injection 5,000 Units SUBCUTANEOUS q 12 H - NaCl 0.9% iv infusion 75 mL/hr INTRAVENOUS CONTINUOUS - aluminum-magnesium hydroxide-simethicone 200-200-20 mg/5 mL 30 mL (MAALOX,MYLANTA,MAG-AL PLUS) 30 mL ORAL DAILY PRN - ondansetron 4 mg tab(s) (ZOFRAN) 4 mg ORAL q 6 H PRN Or - ondansetron (PF) 4 mg injection (ZOFRAN) 4 mg INTRAVENOUS q 6 H PRN - polyethylene glycol 3350 17 g packet (MIRALAX, GLYCOLAX) 17 g ORAL DAILY PRN - docusate sodium 100 mg cap(s) (COLACE) 100 mg ORAL BID PRN - magnesium hydroxide 400 mg/5 mL 30 mL (MOM) 30 mL ORAL DAILY PRN - bisacodyl 10 mg suppository (DULCOLAX) 10 mg RECTAL DAILY PRN - acetaminophen 650 mg tab(s) (TYLENOL) 650 mg ORAL q 6 H PRN - atorvastatin 40 mg tab(s) (LIPITOR) 40 mg ORAL DAILY - lisinopril 10 mg tab(s) (ZESTRIL, PRINIVIL) 10 mg ORAL DAILY - levothyroxine 25 mcg tab(s) (SYNTHROID) 25 mcg ORAL DAILY - insulin lispro pen (rapid acting) (HumaLOG KWIKPEN) SUBCUTANEOUS w MEALS AND HS - dextrose 40 % 15 g 15 g ORAL PRN Or - glucagon 1 mg injection (GLUCAGEN) 1 mg INTRAMUSCULAR PRN Or - dextrose 50% in water 25 mL syringe 12.5 g INTRAVENOUS PRN - vancomycin iv piggyback 1.25 g in D5W 250 mL (VANCOCIN) 1.25 g INTRAVENOUS q 12 HR - vancomycin dosing and monitoring per pharmacy OTHER As Directed - piperacillin-tazobacta m iv piggyback 3.375 g in dextrose (iso-osmotic) 50 mL (ZOSYN) 3.375 g INTRAVENOUS q 6 H - clindamycin iv piggyback 600 mg in D5W 50 mL (CLEOCIN) 600 mg INTRAVENOUS q 6 H ALLERGIES No Known Allergies Objective PHYSICAL EXAM: BP 122/55 Pulse 78 Temp 36.8 ?C (98.2 ?F) (Oral) Resp 18 Ht 177.8 cm (5' 10") Wt 85 kg (187 lb 6.3 oz) SpO2 94% BMI 26.89 kg/m? General appearance: In no apparent distress, denies pain to R foot Respiratory: unlabored respirations Cardiovascular: doppled pulses R foot, currently receiving PVRs s/ ABIs Extremities: L foot intact, R foot w/ necrotic toes and necrotic tissue/blistered tissue. Denies wounds to buttocks. DATA Labs: wbc 19.76 WOUND ASSESSMENT: Wound Type: Partially necrotic foot/ arterial Location: R toes necrotic w/ necrosis radiating to dorsal foot and plantar foot Exudate: scant serous drainage noted from plantar foot Odor: strong/ foul Periwound: rubor areas Local pulse: doppled Pain: denies pain Wound Care Plan: Mesalt bid to R foot wound w/ dressing over. Ortho and vascular on consult. PVR results pending, MRI pending. ID consult pending. Pt currently on zosyn and vanc. Per ortho note " Likely no viable tissue on platar foot for flap coverage if TMA was attempted. Recommend BKA per vascular" A photo was taken of the patient's wound(s). Photos can be found under the Get Images tab on [employer]. Photos are uploaded by the wound skin care consultant and may not be immediately available for viewing. Contact the wound and ostomy care department with questions. SIGNATURE: Adali Murry APRN.CNS PATIENT NAME: Elizabeth Modi DATE: August 22, 2019 TIME: 11:03 AM CONTACT#: [id number] Yadi Badillo DPM 08/22/2019 6:41 PM Signed ORTHOPAEDIC SURGERY CONSULT Pt: ELIZABETH MODI Date of Consultation: 08/22/2019 Physician Consulted: Dr. Badillo Reason for Consultation: Necrotic foot HPI: 79 year old male presented to [facility] on 08/21/2019 with complaints of changes to his right foot. He has a history of diabetes and PAD/PVD. He states he noticed his foot turned black roughly one week ago. He states he has no pain. He denies any fevers or chills. PAST MEDICAL HISTORY Diagnosis Date - DM (diabetes mellitus) (HCC) - Dyslipidemia - HTN (hypertension) - Hypothyroidism No past surgical history on file. Allergies: Patient has no known allergies. Current Facility-Administered Medications Medication Dose Route Frequency - heparin 5,000 Units injection 5,000 Units SUBCUTANEOUS q 12 H - NaCl 0.9% iv infusion 75 mL/hr INTRAVENOUS CONTINUOUS - aluminum-magnesium hydroxide-simethicone 200-200-20 mg/5 mL 30 mL (MAALOX,MYLANTA,MAG-AL PLUS) 30 mL ORAL DAILY PRN - ondansetron 4 mg tab(s) (ZOFRAN) 4 mg ORAL q 6 H PRN Or - ondansetron (PF) 4 mg injection (ZOFRAN) 4 mg INTRAVENOUS q 6 H PRN - polyethylene glycol 3350 17 g packet (MIRALAX, GLYCOLAX) 17 g ORAL DAILY PRN - docusate sodium 100 mg cap(s) (COLACE) 100 mg ORAL BID PRN - magnesium hydroxide 400 mg/5 mL 30 mL (MOM) 30 mL ORAL DAILY PRN - bisacodyl 10 mg suppository (DULCOLAX) 10 mg RECTAL DAILY PRN - acetaminophen 650 mg tab(s) (TYLENOL) 650 mg ORAL q 6 H PRN - atorvastatin 40 mg tab(s) (LIPITOR) 40 mg ORAL DAILY - lisinopril 10 mg tab(s) (ZESTRIL, PRINIVIL) 10 mg ORAL DAILY - levothyroxine 25 mcg tab(s) (SYNTHROID) 25 mcg ORAL DAILY - insulin lispro pen (rapid acting) (HumaLOG KWIKPEN) SUBCUTANEOUS w MEALS AND HS - dextrose 40 % 15 g 15 g ORAL PRN Or - glucagon 1 mg injection (GLUCAGEN) 1 mg INTRAMUSCULAR PRN Or - dextrose 50% in water 25 mL syringe 12.5 g INTRAVENOUS PRN - vancomycin iv piggyback 1.25 g in D5W 250 mL (VANCOCIN) 1.25 g INTRAVENOUS q 12 HR - vancomycin dosing and monitoring per pharmacy OTHER As Directed - piperacillin-tazobacta m iv piggyback 3.375 g in dextrose (iso-osmotic) 50 mL (ZOSYN) 3.375 g INTRAVENOUS q 6 H - clindamycin iv piggyback 600 mg in D5W 50 mL (CLEOCIN) 600 mg INTRAVENOUS q 6 H No family history on file. Negative for family history of bleeding and clotting disorders. Social History Tobacco Use - Smoking status: Not on file Substance Use Topics - Alcohol use: Not on file - Drug use: Not on file ROS: 10 pt ROS neg except in HPI O: Vitals: BP 122/55 Pulse 78 Temp 36.8 ?C (98.2 ?F) (Oral) Resp 18 Ht 177.8 cm (5' 10") Wt 85 kg (187 lb 6.3 oz) SpO2 94% BMI 26.89 kg/m? Physical exam: General: AANDO x 3; NAD. Cooperative throughout entire interview Right Lower Extremity: Necrotic changes to all toes with distal hallux, second and third toes mummified - remaining toes gangrene though not mummified. Necrotic changes extend proximally to midfoot on dorsal surface with some erythema surrounding. Necrotic appearance to plantar surface of forefoot with extension to the plantar medial arch to level of just distal to the heel. This area feels fluctuant with crepitus noted. Patient denies TTP about foot and toes +motor function EHL/FHL/DF/PF Sensation grossly intact to light touch about foot though decreased Weak DP pulse on doppler. Labs: BMP: Sodium 133 08/22/2019 Potassium 4.1 08/22/2019 Chloride 104 08/22/2019 CO2 21 08/22/2019 BUN 31 08/22/2019 Creatinine 0.95 08/22/2019 Glucose 218 08/22/2019 CBC: WBC 19.76 08/22/2019 HGB 9.4 08/22/2019 Hematocrit 28.4 08/22/2019 Platelet Count 380 08/22/2019 COAGS: No results found for this basename: aptt,inr SED RATE/CRP: No results found for this basename: wsr:*,crp:* Imaging: -XR of the right foot (08/21/2019): Soft tissue swelling with some air bubbles about plantar arch and dorsum of forefoot which correlate with wounds. A/P: 79 year old male with Necrotic right toes and foot -Medical management per primary team -Antibiotics per ID/primary -Local wound care -MRI and PVRs pending -Likely no viable tissue on platar foot for flap coverage if TMA was attempted. -Recommend BKA per vascular Discussed with Dr. Badillo who is in agreement with this plan. Cayetano Zapata MD Orthopaedic Surgery 08/22/2019 9:36 AM Attending Note I evaluated the patient and personally participated in the loera components. I agree with the resident's findings and plan as documented and have discussed the case and management of the patient's care with the resident. Plan of care discussed with: Provider, RN, Patient. PVRs reviewed. RIGHT SIDE Resting right ankle brachial index: 0.29 Right toe brachial index: 0.00 Abnormal ankle brachial index at rest diagnostic of peripheral artery disease. Right ankle: Severe disease at rest. Right iliofemoral disease. Right superficial femoral disease may also be present. Right distal superficial femoral and/or popliteal disease. Right infrapopliteal disease. Right small vessel disease. MRI Impression: IMPRESSION: 1. ?Very limited study due to motion artifact. 2. ?Numerous foci of air are present throughout the foot as discussed, concerning for diffuse soft tissue infection with a gas-forming organism. 3. ?Tissue loss involving the distal second toe concerning for necrosis. 4. ?Somewhat ill-defined T2 hyperintensity throughout the foot which could represent phlegmonous material. No obvious abscess collection. 5. ?There may be early cortical loss involving the distal portion of the second distal phalanx concerning for osteomyelitis. 6. ?Scattered regions of abnormal signal involving the second through fifth metatarsal head and neck and scattered throughout the toes which could be reactive or related to early osteomyelitis. Severe malodor and crepitus noted plantarly. No proximal crepitus was noted. Bedside IANDD performed today. Discussed risks, benefits, complications, alternatives. Discussed that patient will still require amputation but will try to allow for decompression of infection. 6cm incision made to the plantar aspect of the right foot under aseptic technique using 15 scalpel blade. Upon incision, purulent malodors dishwater drainage was expressed. No bleeding was encountered. Scissors were utilized to open this area to allow for further expression and cultures were taken and sent to microbiology. Mesalt packing placed and DSD applied. Vascular plans for angio noted for tomorrow. Discussed case with Dr. Parmar with vascular. Severe soft tissue loss in DM pt with severe PAD. Concerned regarding extent of infection and need for more urgent amputation. They will assess in am and potentially perform guillotine amputation at ankle level if needed tomorrow. Signature: Yadi Badillo DPM Date: August 22, 2019 Time: 6:32 PM Previous Version Paulo Landis MD 08/22/2019 3:07 PM Signed INITIAL CONSULT INFECTIOUS DISEASE SERVICE DATE: 08/22/2019 SERVICE TIME: 1:42 PM We were asked to evaluate Mr. Elizabeth Modi, a 79 year old yo male by for Infected Gangrenous right foot - rule out OM. Our findings and recommendations will be communicated through the shared medical record. ASSESSMENT: 1. 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 Low suspicion for group A strep given aggressive spreading. 2. DM2 uncontrolled 3. Severe PAD Estimated Creatinine Clearance: 66.2 mL/min (based on SCr of 0.95 mg/dL). RECOMMENDATIONS: - Cont zosyn #2, vancomycin #1, clindamycin #1 - De-escalate after surgical intervention - Please send for routine culture - Depending on the procedure, if BKA or AKA, then will only need 2 week antibiotics - Await surgical intervention, briefed patient about amputation, but will wait for surgical team for further discussion SUBJECTIVE: HPI: 79M DM2, HTN, chronic intermittent claudication, hypothyroidism, presented with R foot gangrene for 1.5 weeks. Patient did not remember going through any trauma of the foot. He is not experiencing any pain currently. He stated that his foot was normal 1.5 weeks ago. He also stated that for many years ago he was told that he has vascular problem because he would have muscle aches of his legs after a walk and would have to rest to feel better. But he never followed up with that Exposure History Travel: none Pets and animal exposure: 1 dog Hobbies: race cars but no longer doing that Employment: work with [email or web address] CURRENT ANTIBIOTICS: Zosyn Clindamycin vancomycin Current other medications reviewed. Current Facility-Administered Medications Medication Dose Route Frequency - heparin 5,000 Units injection 5,000 Units SUBCUTANEOUS q 12 H - NaCl 0.9% iv infusion 75 mL/hr INTRAVENOUS CONTINUOUS - aluminum-magnesium hydroxide-simethicone 200-200-20 mg/5 mL 30 mL (MAALOX,MYLANTA,MAG-AL PLUS) 30 mL ORAL DAILY PRN - ondansetron 4 mg tab(s) (ZOFRAN) 4 mg ORAL q 6 H PRN Or - ondansetron (PF) 4 mg injection (ZOFRAN) 4 mg INTRAVENOUS q 6 H PRN - polyethylene glycol 3350 17 g packet (MIRALAX, GLYCOLAX) 17 g ORAL DAILY PRN - docusate sodium 100 mg cap(s) (COLACE) 100 mg ORAL BID PRN - magnesium hydroxide 400 mg/5 mL 30 mL (MOM) 30 mL ORAL DAILY PRN - bisacodyl 10 mg suppository (DULCOLAX) 10 mg RECTAL DAILY PRN - acetaminophen 650 mg tab(s) (TYLENOL) 650 mg ORAL q 6 H PRN - atorvastatin 40 mg tab(s) (LIPITOR) 40 mg ORAL DAILY - lisinopril 10 mg tab(s) (ZESTRIL, PRINIVIL) 10 mg ORAL DAILY - levothyroxine 25 mcg tab(s) (SYNTHROID) 25 mcg ORAL DAILY - insulin lispro pen (rapid acting) (HumaLOG KWIKPEN) SUBCUTANEOUS w MEALS AND HS - dextrose 40 % 15 g 15 g ORAL PRN Or - glucagon 1 mg injection (GLUCAGEN) 1 mg INTRAMUSCULAR PRN Or - dextrose 50% in water 25 mL syringe 12.5 g INTRAVENOUS PRN - vancomycin iv piggyback 1.25 g in D5W 250 mL (VANCOCIN) 1.25 g INTRAVENOUS q 12 HR - vancomycin dosing and monitoring per pharmacy OTHER As Directed - piperacillin-tazobacta m iv piggyback 3.375 g in dextrose (iso-osmotic) 50 mL (ZOSYN) 3.375 g INTRAVENOUS q 6 H - clindamycin iv piggyback 600 mg in D5W 50 mL (CLEOCIN) 600 mg INTRAVENOUS q 6 H PAST MEDICAL HISTORY Diagnosis Date - DM (diabetes mellitus) (HCC) - Dyslipidemia - HTN (hypertension) - Hypothyroidism No past surgical history on file. Social History Tobacco Use - Smoking status: Not on file Substance Use Topics - Alcohol use: Not on file - Drug use: Not on file No family history on file. ALLERGIES No Known Allergies OBJECTIVE: REVIEW OF SYSTEMS: GENERAL: No weight loss, malaise or fevers HEENT: Negative for frequent or significant headaches NECK: Negative for lumps, goiter, pain and significant neck swelling RESPIRATORY: Negative for cough, hemoptysis, wheezing, COPD, dyspnea or shortness of breath CARDIOVASCULAR: Negative for chest pain, leg swelling, hypertension, CHF or palpitations GI: No nausea, vomiting, or diarrhea : No history of dysuria, frequency or incontinence MUSCULOSKELETAL: Negative for joint pain or swelling, back pain or muscle pain SKIN: See HPI PSYCH: Negative for sleep disturbance, mood disorder and recent psychosocial stressors PHYSICAL EXAM: BP 122/55 Pulse 78 Temp 36.8 ?C (98.2 ?F) (Oral) Resp 18 Ht 177.8 cm (5' 10") Wt 85 kg (187 lb 6.3 oz) SpO2 94% BMI 26.89 kg/m? GENERAL APPEARANCE: Comfortable SKIN: No rashes or lesions HEAD/SINUSES: No significant findings LUNGS: Normal breath sounds, clear to auscultation, no wheezes, or crackles HEART:RRR, no murmurs ABDOMEN: Soft, non tender, BS+ EXTREMITIES: R foot black gangrene NEURO: Awake, alert, no involuntary motions LABS: WBC (thou/cmm) Date Value 08/22/2019 19.76 Creatinine (mg/dL) Date Value 08/22/2019 0.95 No results found for: NEUTP, ABSNEUT, LYMPHP, ABSLYMPH, ABSMONO, EODINP, ABSEOSIN, BASOP, ABSBASO Lab Results Component Value Date PLT 380 08/22/2019 HB 9.4 08/22/2019 HCT 28.4 08/22/2019 ALB 1.7 08/22/2019 CA 7.1 08/22/2019 TBILI 0.5 08/22/2019 ALKPHOS 107 08/22/2019 AST 81 08/22/2019 GLUC 218 08/22/2019 BUN 31 08/22/2019 NA 133 08/22/2019 K 4.1 08/22/2019 CHLOR 104 08/22/2019 CO2 21 08/22/2019 ANION 12 08/22/2019 ALT 73 08/22/2019 No results found for: WSR, CRP, IGG No results found for: VANCOPRE, VANCORA MICROBIOLOGY: none IMAGING: MRI foot R 08/22/19: 1. ?Very limited study due to motion artifact. 2. ?Numerous foci of air are present throughout the foot as discussed, concerning for diffuse soft tissue infection with a gas-forming organism. 3. ?Tissue loss involving the distal second toe concerning for necrosis. 4. ?Somewhat ill-defined T2 hyperintensity throughout the foot which could represent phlegmonous material. No obvious abscess collection. 5. ?There may be early cortical loss involving the distal portion of the second distal phalanx concerning for osteomyelitis. 6. ?Scattered regions of abnormal signal involving the second through fifth metatarsal head and neck and scattered throughout the toes which could be reactive or related to early osteomyelitis. US arterial PVR lower: RIGHT SIDE Resting right ankle brachial index: 0.29 Right toe brachial index: 0.00 Abnormal ankle brachial index at rest diagnostic of peripheral artery disease. Right ankle: Severe disease at rest. Right iliofemoral disease. Right superficial femoral disease may also be present. Right distal superficial femoral and/or popliteal disease. Right infrapopliteal disease. Right small vessel disease. DATA: Diagnostic Tests Reviewed for Today's Visit: Most recent labs Most recent imaging Thank you very much for inviting us to participate in the care of this patient. SIGNATURE: Paulo Landis MD PATIENT NAME: Elizabeth Modi DATE: August 22, 2019 TIME: 1:42 PM PAGER/CONTACT #: [phone] Marita Aponte RN, RN 08/22/2019 2:[address] Parmar into see pt. Pt to be scheduled for angiogram tomorrow. Pt states understanding of procedure Marisol Falcon RD, RD 08/22/2019 3:12 PM Signed NUTRITION THERAPY INITIAL ASSESSMENT SERVICE DATE: 08/22/2019 SERVICE TIME: 2:27 Nutrition Assessment: Recommended Malnutrition Diagnosis: Moderate Protein-Calorie Malnutrition In the context of: Acute Illness or Injury Based on: Muscle Loss;Subcutaneous Fat Loss;Insufficient Energy Intake;Decline in Functional Status;Unintentional Weight Loss Nutrition Diagnosis: Problem: Unintended weight loss Related to: Acute illness As evidenced by: Imaging studies;Depletion of fat/muscle stores;Patient/family self-report Estimated kilocalorie needs: 9321-2625 Calorie Calculation Method: 30-35 kcals/kg Estimated protein needs (grams): 98-128 Grams protein determined by: 1.3-1.7 g/kg Care Plan: (CHO controlled 3-5 CARBS/MEAL) Supplements: Boost Glucose Control(daily) Monitor and Evaluation: Meet greater than 75% of estimated needs;Monitor labs, I/Os, vital signs, weight;Monitor bowel function;Monitor fluid/electrolyte balance Discharge Recommendations: Oral Supplements;Diet Diet: CARB control, low sodium Oral Supplements: per pt preferance HPI: Elizabeth Modi is 79 yo male with necrotic L foot wound, reports fevers, chills, and intermittent dizziness. Dry gangrene noted over plantar arch. PMH of DM, dyslipidemia, HTN, hypothyroidism, and PAD/PVD. Intake History: Current Intake: Less than 50% estimated energy needs over: few days -states "past few days I eat when I remember" -loss of appetite Current Diet: DIET CARBOHYDRATE CONTROLLED Anthropometrics: Height: 177.8 cm (5' 10") Weight: 85 kg (187 lb 6.3 oz) Dosing Weight: 75.5 kg (166 lb 7.2 oz) Body mass index is 26.89 kg/m?. Overweight Physical Exam: Subcutaneous fat loss: Mild Muscle loss: Moderate Potential micronutrient deficiency: Nails Edema/Ascites: No edema GI Symptoms: Anorexia Functional Status: Regressed Potential Signs of Inflammation: Hyperglycemia;Hypoalbu minemia;Imaging studies SIGNATURE: Evita Brandon PATIENT NAME: Elizabeth Modi DATE: August 22, 2019 TIME: 2:27 PM PAGER: [phone] Previous Version Sue Bianchi DO 08/22/2019 3:29 PM Signed DEPARTMENT OF HOSPITAL MEDICINE PROGRESS NOTE SERVICE DATE: 08/22/2019 SERVICE TIME: 2:32 PM Hospital Medicine/Primary Attending: Sue Bianchi DO NIGHT AND WEEKEND COVERAGE: After 7pm, please call cross cover pager #[phone] Subjective INTERVAL HPI: Patient seen and examined. No acute events overnight. He reports minimal pain in the foot. Pending MRI and PVR. He has been seen by ortho and vascular surgery. No history of similar. MEDICATIONS: Reviewed Objective PHYSICAL EXAM: BP 122/55 Pulse 78 Temp (Src) 98.2 (Oral) Resp 18 Ht 5' 10" (1.78m) Wt 187 lb 6.3 oz (85.0kg) SpO2 94% BMI 26.89 kg/(m2). O2 Therapy: Room Air Physical Exam Performed Constitutional - Vitals as above, not in acute distress Resp - Clear to auscultate both sides, no wheezes, crackles or rales, no labored breathing CVS- RRR. No murmur, gallop or rub, pulse 2+ GI - NTND, bowel sounds normally heard, no mass palpable MANAGER AUDIO- cranial nerves 2 to 12 grossly intact, no focal motor or sensory deficits noted, speech normal Psych- A ANDO x 3, mood normal Skin- R lower extremity dressing intact, wound care notes and images reviewed Lines, Drains, and Airways Line Peripheral 08/21/19 2239 Assessment Left Antecubital 20 Gauge less than 1 day Peripheral 08/21/19 2240 Assessment Right Antecubital 20 Gauge less than 1 day Reviewed lines and needs to be continued: REASONS: Intravenous antibiotics DATA: Diagnostic tests reviewed for today's visit: Most recent labs and imaging results. Assessment/Plan #sepsis POA-secondary to foot infection, gangrene, continue vancomycin, zosyn and clindamycin for now, await culture data, surgical plans #RLE wound infection with wet gangrene and necrosis-MRI showing air, PVR completed-vascular surgery and orthopedics on board, likely plan for amputation per surgery, await final recs, ID following, monitor for any sign of worsening infection or spiking fever, patient comfortable with minimal pain at this time #leukocytosis-due to above, trend, continue IV antibiotics #anemia-will check iron studies, no prior available, no evidence bleeding, repeat in am #hx PAD-continue statin #DM 2- continue SSI, check a1c, hold po medication for now #hypothyroidism-contin ue synthroid #HTN-continue lisinopril #HLD-statin Medication and Non-Pharmacologic VTE Prophylaxis/Anticoagul ants Anticoagulant AND Antiplatelet Medications (From admission, onward) Start Dose Route Frequency Ordered Stop 08/21/191929 heparin 5,000 Units injection (Medical Risk Categories) 5,000 Units SUBCUTANEOUS EVERY 12 HOURS 08/21/191915 -- 08/21/191914 vte non-pharmacologic prophylaxis - none indicated ([place]) 08/21/191914 activity - mobilize patient ([place]) VTE Prophylaxis: VTE prophylaxis appropriate Disposition: Home with [facility] Plan of care discussed with: Provider, RN, Patient SIGNATURE: Sue Bianchi DO PATIENT NAME: Elizabeth Modi DATE: August 22, 2019 TIME: 2:32 PM PAGER/CONTACT #: [phone] Gordo Figueroa MD 08/23/2019 1:07 PM Signed [facility] - Operative Report ELIZABETH MODI : 1940 AGE: 79. SEX: M PATIENT TYPE: I HOSP [facility]: [facility] LOCATION: [facility] ATTENDING PHYSICIAN: Ara Singer M.D. CSN NUMBER: [id number] DATE OF SURGERY/PROCEDURE: 08/23/2019 INCISION/PROCEDURE START TIME: 8:42 AM INCISION CLOSE/PROCEDURE END TIME: 9:04 AM PREOPERATIVE DIAGNOSIS: Gangrenous changes of the right foot with gas in the subcutaneous tissues. POSTOPERATIVE DIAGNOSIS: Gangrenous changes of the right foot with gas in the subcutaneous tissues. SURGEON: Gordo Figueroa MD GALVANOMETER ASSEMBLER: 1. Jennifer Crooks M.D. 2. Irvin Walker, assistant store manager operations. SURGERY/PROCEDURE: Guillotine right above ankle/below-knee amputation. ANESTHESIA: General. HISTORY: This is a gentleman we have been following and was found last night upon debridement of his foot to have gas in the subcutaneous tissues and now today this morning seems to be progressing to some edema and erythema at the level of the ankle. In addition to this, in examining the debridement site from last night, the tissue in the arch of the foot is necrotic and there was no way that an amputation could be salvaged at the foot level. Plan at this point in time is to do a guillotine amputation today and early next week do an arteriogram with possible intervention to improve circulation and then later do a definitive below-knee amputation if we can improve the circulation. We have discussed this with the patient this morning. He is aware of what we are planning and he is in agreement as he realizes there is nothing that can be done to salvage his foot. DESCRIPTION OF PROCEDURE: With the patient in supine position under adequate general anesthesia, appropriate area of the leg was prepped and draped in a sterile fashion. We marked a circular incision just above the level of the ankle and then anesthetized that area down to the bone with 1% local with epinephrine. Once this was accomplished, we went ahead and performed the incision. This incision was carried circumferentially down to the fibula posterior and the tibia anterior medially and laterally. Once we were able to do this, we used a septal elevator to clear the periosteum and once periosteum was cleared, a Gigli saw was used to transect the tibia. The tissue between the tibia and fibula was isolated and transected with Bovie electrocautery. Clamps were placed on the neurovascular bundles for the anterior tibial and posterior tibial arteries. We did identify a peroneal artery neurovascular bundle at this level. We went ahead and proceeded to use suture ligatures on these. There was not significant pulsatile bleeding through either of these vessels. At this point, once these were suture ligated, we went ahead and used a Gigli saw to sharply transect the fibula. Once the fibula was transected, we used bone cutters to flatten the edges of the transected surface and then a rasp was used to clear any sharp edges on the tissue. Hemostasis was now obtained in the subcutaneous tissues with cautery and ties and once this was done, we went ahead and placed Xeroform gauze over the open wound. After the Xeroform gauze was placed, dry fluffs were placed and then a sterile Kerlix wrap placed. An Jero wrap was then placed over this. Sponge and needle counts were correct at the end of the case. There were no intraoperative complications. The patient was returned to the recovery area in stable condition. MD RAPHAEL LeyW:[id number] /[id number] Previous Version Doris Eden MD 08/25/2019 9:16 AM Signed [facility] - Consultation PATIENT NAME: ELIZABETH MODI [facility]: [id number] DATE OF : 1940 SEX/AGE: M/79 PATIENT TYPE: I HOSP [facility]: [facility] LOCATION: [id number] DATE OF SERVICE: 08/23/2019 TIME OF SERVICE: 01:15 PM REFERRING PHYSICIAN: Dexter Chávez MD REASON FOR CONSULTATION: Uncontrolled diabetes. HISTORY OF PRESENT ILLNESS: The patient is a 79-year-old male, who was transferred from [facility] with gangrene off right foot toes. Patient had right below-knee amputation today. Reviewed the chart and also obtained history from patient. Regarding diabetes, patient was diagnosed with diabetes 37 years ago. He states he has been on oral agents for a long time. He used to be on insulin for 6 to 7 years and has been off insulin for last several years since he could not afford it. He does not remember the exact duration. He checks his blood sugar once a day and they are 120s to 150s. He takes Amaryl and metformin at home. He does not check his sugars in the evening. His A1c on admission is 9.8. Patient states that he has had weight loss gradually. He does not have any numbness or tingling in his left foot. He does not have any eye complications of diabetes. Patient is not aware of any kidney problems from diabetes. PAST MEDICAL HISTORY: History of type 2 diabetes, history of hypertension, history of hyperlipidemia, history of hypothyroidism. FAMILY HISTORY: Positive for diabetes in his father. SOCIAL HISTORY: No history of smoking or alcohol use. REVIEW OF SYSTEMS: As per History of Present Illness, otherwise negative. PHYSICAL EXAMINATION: GENERAL: Patient is lying in bed, no acute distress. VITAL SIGNS: Height 5 feet 10 inches, weight is 187 pounds. Afebrile. Vital signs are stable. SKIN: Warm and dry. No ulcers or calluses noticed on his left foot. No rash. EYES: Pupils appear round. NECK: Supple. No goiter palpable on thyroid exam. LUNGS: Clear to auscultation. CVS: Regular rate and rhythm. ABDOMEN: Soft. EXTREMITIES: There is no edema. Pedal pulses are poorly palpable in the left foot. NEUROLOGIC: Patient has normal strength on neurological exam. LABORATORY DATA: Sodium 133, potassium 3.8, chloride 103, CO2 of 22, BUN 15, creatinine 0.83. Blood sugars yesterday, 222, 163, 114, and 182; this morning, 121 and 134. HbA1c 9.8. CLINICAL IMPRESSION: 1. Diabetes mellitus type 2, uncontrolled with high HbA1c of 9.8%. Patient is on Amaryl and metformin. He was on Lantus insulin, which he states he could not afford in the past. His fasting sugars at home are 120s to 150s and he does not check it at home in the evening. His admission blood sugar was 218 yesterday morning. Now, his blood sugars are better since he is fasting, but he is going to be started on diet now. 2. 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 3. Hypothyroidism. Patient is on low-dose levothyroxine 25 mcg daily per his PCP. RECOMMENDATION: 1. We will continue to monitor the blood sugars before meals and at bedtime and continue carb-controlled diet. 2. I will resume his home medications Amaryl 4 mg daily and metformin 1 g b.i.d. starting today. 3. I will start him on programmed Lantus 10 units at bedtime. 4. I will start him on sliding scale Humalog before meals only, but not at bedtime. We will monitor his blood sugars and adjust the insulin doses as needed. 5. I discussed with patient that he can take Novolin N if he has difficulty affording Lantus 10. Doris Eden MD Endocrinology SM:shima /[id number] Tom Prescott DO, 08/23/2019 1:43 AM Signed Patient seen multiple times throughout the evening. Care discussed with multiple RNs. 08/22/19 1400 08/22/19 1900 08/22/19211208/23/19 0131 BP: 137/54 (!) 128/48 110/68 Pulse: 87 79 82 Resp: 12 18 18 Temp: 36.7 ?C (98.1 ?F) 36.4 ?C (97.5 ?F) 36.6 ?C (97.9 ?F) TempSrc: Tympanic Oral Oral SpO2: 98% 95% 95% Weight: 85 kg (187 lb 6.3 oz) Height: Will continue to monitor vitals. RN to call with changes. Consented for guillotine amputation in emergency. Tom Prescott DO, URSZULA PGY-1 General Surgery Resident 08/23/2019 1:42 AM Pager below: Vascular AND Thoracic Surgery Service Pager: For questions or concerns Mon-Mon 6a-5p please page [phone]. After 5pm and on Weekends and Holidays, please page [phone] if in ICU or [phone] if on RNF. Cayetano Zapata MD, MD 08/23/2019 6:31 AM Signed ORTHOPAEDIC SURGERY DAILY PROGRESS NOTE ASSESMENT: 79 y/o man with right foot gangrene PLAN: -Medical management per primary team -Pain control per primary team -Antibiotics per ID -Local wound care -Vascular surgery planning angio to determine level of viable amputation, will perform guillotine amputation if patient decompensates or appears septic INTERVAL HPI: No acute events overnight. Pain controlled. Denies fevers and chills. Denies chest pain and shortness of breath. OBJECTIVE: BP 117/59 Pulse 80 Temp 36.4 ?C (97.5 ?F) (Temporal) Resp 18 Ht 177.8 cm (5' 10") Wt 85 kg (187 lb 6.3 oz) SpO2 94% BMI 26.89 kg/m? Exam: General: NAD, AOx3 Right Lower Extremity: Malodor. Necrotic tissue to toes and plantar/dorsal surface of foot. Erythema to dorsum of foot. Patient denies TTP about foot and toes. +motor function EHL/FHL/DF/PF Sensation grossly intact to light touch about foot, although decreased. Recent Labs 08/23/19 0345 08/22/19 0454 CREAT -- 0.95 BUN -- 31* NA -- 133* K -- 4.1 CHLOR -- 104 CO2 -- 21 ANION -- 12 GLUC -- 218* CA -- 7.1* ALB -- 1.7* AST -- 81* ALT -- 73 ALKPHOS -- 107 TBILI -- 0.5 WBC 18.79* 19.76* HB 10.2* 9.4* HCT 31.0* 28.4* PLT 421* 380* COAGS: No results found for this basename: aptt,inr SED RATE/CRP: No results found for this basename: wsr:*,crp:* Imaging: No new orthopaedic imaging. SIGNATURE: Cayetano Zapata MD PATIENT NAME: Elizabeth Modi DATE: 08/23/19 TIME: 6:27 AM PAGER/CONTACT #: [phone] Marita Aponte RN, RN 08/23/2019 8:[address] Figueroa into see pt. Dr. Figueroa informing pt that surgery has been moved up to this morning. Pt states understanding. Marita Aponte RN, RN 08/23/2019 8:07 AM Signed Report given to presurg RN. Daughter Margaret notified by phone that pt would be going to surgery soon. Daughter states she is"on her way". Daughter informed on phone that pt would probably be in surgery when she gets here. Daughter states ubderstanding Marita Aponte RN, RN 08/23/2019 8:09 AM Signed Tech here to take pt to presurgery unit . Pt showing no signs of distress voicing no complaints. Pt taken via cart to presurgery unit Sj Huizar DO 08/23/2019 8:34 AM Addendum ANESTHESIOLOGY DAY OF SURGERY NOTE SERVICE DATE: 08/23/2019 SERVICE TIME: 7:52 AM : 1940 Procedure(s) (LRB): GUILLOTINE AMPUTATION OF RIGHT FOOT (Right) Surgeon(s): Gordo Figueroa Estimated body mass index is 26.89 kg/m? as calculated from the following: Height as of this encounter: 177.8 cm (5' 10"). Weight as of this encounter: 85 kg (187 lb 6.3 oz). Most recent hematocrit and potassium results: Hematocrit 31.0 08/23/2019 Potassium 3.8 08/23/2019 ANES DOS/PREOP NOTE: Vitals: 08/22/19 2113 08/23/19 0131 08/23/19 0600 08/23/19 0805 BP: (!) 128/48 110/68 117/59 143/84 Pulse: 79 82 80 Resp: 18 18 18 16 Temp: 36.4 ?C (97.5 ?F) 36.6 ?C (97.9 ?F) 36.4 ?C (97.5 ?F) 36.9 ?C (98.4 ?F) TempSrc: Oral Oral Temporal Temporal SpO2: 95% 95% 94% 97% Weight: Height: ACTIVE PROBLEM LIST Gangrene of Foot (Hcc) Diabetes (Hcc) Htn (Hypertension) Dyslipidemia Hypothyroidism Malnutrition of Moderate Degree (Hcc) PAST MEDICAL HISTORY Diagnosis Date - DM (diabetes mellitus) (HCC) - Dyslipidemia - HTN (hypertension) - Hypothyroidism No past surgical history on file. No family history on file. Social History: Social History Tobacco Use - Smoking status: Not on file Substance Use Topics - Alcohol use: Not on file - Drug use: Not on file No current facility-administered medications on file prior to encounter. Current Outpatient Medications on File Prior to Encounter Medication Sig - atorvastatin (LIPITOR) 40 mg tablet Take 40 mg by mouth once daily. - levothyroxine (SYNTHROID) 25 mcg tablet Take 25 mcg by mouth once daily. - lisinopril (ZESTRIL, PRINIVIL) 10 mg tablet Take 10 mg by mouth once daily. - pioglitazone (ACTOS) 30 mg tablet Take 30 mg by mouth once daily. - metFORMIN (GLUCOPHAGE) 1,000 mg tablet Take 1,000 mg by mouth twice daily. - glimepiride (AMARYL) 4 mg tablet Take 4 mg by mouth twice daily. Current Facility-Administered Medications Medication Dose Route Frequency Provider Last Rate Last Dose - [MAR Hold due to Transfer] dextrose 5% in NaCl 0.45% with 20 mEq/L KCl iv infusion 80 mL/hr INTRAVENOUS CONTINUOUS Tom (Res) DO [place] - [MAR Hold due to Transfer] magnesium sulfate in sterile water 4 g iv piggyback 4 g INTRAVENOUS ONCE Sue Bianchi - [MAR Hold due to Transfer] potassium phosphate 30 mmol in NaCl 0.9% 250 mL 30 mmol INTRAVENOUS ONCE Sue Bianchi - [MAR Hold due to Transfer] magnesium sulfate in sterile water 4 g iv piggyback 4 g INTRAVENOUS ONCE Litzy Rojas MD - [MAR Hold due to Transfer] heparin 5,000 Units injection 5,000 Units SUBCUTANEOUS q 12 H Mohkamlesh Diego Yarsani 5,000 Units at 08/22/19 0807 - [MAR Hold due to Transfer] aluminum-magnesium hydroxide-simethicone 200-200-20 mg/5 mL 30 mL (MAALOX,MYLANTA,MAG-AL PLUS) 30 mL ORAL DAILY PRN Mohammad F Yarsani - [MAR Hold due to Transfer] ondansetron 4 mg tab(s) (ZOFRAN) 4 mg ORAL q 6 H PRN Mohammad F Yarsani Or - [MAR Hold due to Transfer] ondansetron (PF) 4 mg injection (ZOFRAN) 4 mg INTRAVENOUS q 6 H PRN Mohammad F Yarsani - [MAR Hold due to Transfer] polyethylene glycol 3350 17 g packet (MIRALAX, GLYCOLAX) 17 g ORAL DAILY PRN Mohammad F Yarsani - [MAR Hold due to Transfer] docusate sodium 100 mg cap(s) (COLACE) 100 mg ORAL BID PRN Mohammad F Yarsani - [MAR Hold due to Transfer] magnesium hydroxide 400 mg/5 mL 30 mL (MOM) 30 mL ORAL DAILY PRN Mohammad F Yarsani - [MAR Hold due to Transfer] bisacodyl 10 mg suppository (DULCOLAX) 10 mg RECTAL DAILY PRN Mohammad F Yarsani - [MAR Hold due to Transfer] acetaminophen 650 mg tab(s) (TYLENOL) 650 mg ORAL q 6 H PRN Mohammad F Yarsani - [MAR Hold due to Transfer] atorvastatin 40 mg tab(s) (LIPITOR) 40 mg ORAL DAILY Mohammad F Yarsani 40 mg at 08/22/192009 - [MAR Hold due to Transfer] lisinopril 10 mg tab(s) (ZESTRIL, PRINIVIL) 10 mg ORAL DAILY Mohammad F Yarsani 10 mg at 08/22/19 0807 - [MAR Hold due to Transfer] levothyroxine 25 mcg tab(s) (SYNTHROID) 25 mcg ORAL DAILY Mohammad F Yarsani 25 mcg at 08/22/19 0600 - [MAR Hold due to Transfer] insulin lispro pen (rapid acting) (HumaLOG KWIKPEN) SUBCUTANEOUS w MEALS AND HS Mohammad F Yarsani 1 Units at 08/22/192128 - [MAR Hold due to Transfer] dextrose 40 % 15 g 15 g ORAL PRN Mohammad F Yarsani Or - [MAR Hold due to Transfer] glucagon 1 mg injection (GLUCAGEN) 1 mg INTRAMUSCULAR PRN Mohammad F Yarsani Or - [MAR Hold due to Transfer] dextrose 50% in water 25 mL syringe 12.5 g INTRAVENOUS PRN Mohammad F Yarsani - [MAR Hold due to Transfer] vancomycin iv piggyback 1.25 g in D5W 250 mL (VANCOCIN) 1.25 g INTRAVENOUS q 12 HR Mohammad F Yarsani 250 mL/hr at 08/22/192009 1.25 g at 08/22/192009 - [MAR Hold due to Transfer] vancomycin dosing and monitoring per pharmacy OTHER As Directed Mohammad F Yarsani - [MAR Hold due to Transfer] piperacillin-tazobacta m iv piggyback 3.375 g in dextrose (iso-osmotic) 50 mL (ZOSYN) 3.375 g INTRAVENOUS q 6 H Mohammad F Yarsani 100 mL/hr at 08/23/19 0549 3.375 g at 08/23/19 0549 - [MAR Hold due to Transfer] clindamycin iv piggyback 600 mg in D5W 50 mL (CLEOCIN) 600 mg INTRAVENOUS q 6 H Mohammad F Yarsani 100 mL/hr at 08/23/19 0549 600 mg at 08/23/19 0549 Allergies: ALLERGIES No Known Allergies DOS EXAM: Adequate NPO status: Yes Anesthetic risks, benefits, alternatives, personnel and consent discussed: Yes Patient agrees to proceed: Yes Previous Anesthesia: No history of adverse event. Airway Assessment: MP 2; Neck ROM: Full ROM without neurologic symptoms; Airway Evaluation: No significant abnormalities Symptoms of Sleep Apnea: Hypertension, Age over 50 (79 year old) and Male gender Dentition: Edentulous Additional Physical Exam: Lungs: Patient health status unchanged since recent history and physical. See history and physical for exam findings. Cardiac: Patient health status unchanged since recent history and physical. See history and physical for exam findings. Additional Pertinent Findings: N/A Blood Products: Not anticipated for this procedure. Anesthetic Plan: General, Standard ASA Monitors Pain Management Plan: Parenteral or Oral ASA Class: 3 Other Medical Problems: some electrolyte derangements. Will replace his magnesium intraoperatively as it was 0.9 today. Chronic Beta Nicole medication administered within 24 hours: N/A I have interviewed and examined the patient. I have reviewed the medical record and/or the pre-anesthesia evaluation, pertinent labs, and test results. Significant changes in the patient's condition since the History and Physical, not otherwise documented in primary service progress notes: No This contains updated information obtained within 48 hours of Surgery/Procedure. SIGNATURE: Sj Huizar DO PATIENT NAME: Elizabeth Modi DATE: August 23, 2019 TIME: 8:32 AM CSN: [id number] Previous Version Tom Prescott DO, DO 08/23/2019 8:14 AM Attested Attestation signed by Gordo Figueroa at 08/23/2019 9:48 AM I personally saw and examined the patient on 08/23/2019. I reviewed the resident's note. I agree with the resident's assessment and plan unless otherwise noted. On examination today the patient basically has necrotic tissue seen in the base of the opened area that drained the purulent fluid from the foot last night. This extends across the arch of the foot and there is no way that the patient can have a procedure that would salvage the foot. I discussed all of this with the patient he seems very aware of this. There is evidence this morning that this may be progressing up to the level of the ankle and I want to try to get this foot off as quickly and expeditiously as possible. I also want to save the patient the lowest amputation site that he can possibly have and so my plan would be as follows: #1 do a guillotine above ankle amputation today to control the source of sepsis #2 plan for an arteriogram with possible intervention early next week to see if we can improve circulation and improve chances of below-knee amputation healing #3 definitive amputation at the end of next week. Vascular/Thoracic Surgery Progress Note SERVICE DATE: 08/23/2019 Vascular AND Thoracic Surgery Service Pager: For questions or concerns Mon-Mon 6a-5p please page [phone]. After 5pm and on Weekends and Holidays, please page [phone] if in ICU or [phone] if on RNF. Subjective SUBJECTIVE: Patient seen and examined multiple times since yesterday evening. He continues to deny any leg pain. Denies F/C. Denies N/V/CP/SOB. Foot wound examined with Dr. Figueroa at bedside. Diet: DIET NPO Objective OBJECTIVE: Vitals: Temp (24hrs), Av.6 ?C (97.8 ?F), Min:36.4 ?C (97.5 ?F), Max:36.7 ?C (98.1 ?F) BP 117/59 Pulse 80 Temp 36.4 ?C (97.5 ?F) (Temporal) Resp 18 Ht 177.8 cm (5' 10") Wt 85 kg (187 lb 6.3 oz) SpO2 94% BMI 26.89 kg/m? O2 Therapy: Room Air IANDO: Date 08/22/19699 - 08/23/1965808/23/19699 - 08/24/19 0659 Shift 1202-4984 9183-9415 7344-6397 24 Hour Total 9994-3943 3559-4368 9993-8509 24 Hour Total INTAKE PO 240 240 PO 240 240 Shift Total 240 240 OUTPUT Urine 500 087 898 5987 Void (ml) 500 925 146 7903 Shift Total 500 269 758 6474 Weight (kg) 85 85 85 85 85 85 85 85 MEDICATIONS Current Facility-Administered Medications Medication Dose Route Frequency - [MAR Hold due to Transfer] dextrose 5% in NaCl 0.45% with 20 mEq/L KCl iv infusion 80 mL/hr INTRAVENOUS CONTINUOUS - [MAR Hold due to Transfer] magnesium sulfate in sterile water 4 g iv piggyback 4 g INTRAVENOUS ONCE - [MAR Hold due to Transfer] potassium phosphate 30 mmol in NaCl 0.9% 250 mL 30 mmol INTRAVENOUS ONCE - [MAR Hold due to Transfer] magnesium sulfate in sterile water 4 g iv piggyback 4 g INTRAVENOUS ONCE - [MAR Hold due to Transfer] heparin 5,000 Units injection 5,000 Units SUBCUTANEOUS q 12 H - [MAR Hold due to Transfer] aluminum-magnesium hydroxide-simethicone 200-200-20 mg/5 mL 30 mL (MAALOX,MYLANTA,MAG-AL PLUS) 30 mL ORAL DAILY PRN - [MAR Hold due to Transfer] ondansetron 4 mg tab(s) (ZOFRAN) 4 mg ORAL q 6 H PRN Or - [MAR Hold due to Transfer] ondansetron (PF) 4 mg injection (ZOFRAN) 4 mg INTRAVENOUS q 6 H PRN - [MAR Hold due to Transfer] polyethylene glycol 3350 17 g packet (MIRALAX, GLYCOLAX) 17 g ORAL DAILY PRN - [MAR Hold due to Transfer] docusate sodium 100 mg cap(s) (COLACE) 100 mg ORAL BID PRN - [MAR Hold due to Transfer] magnesium hydroxide 400 mg/5 mL 30 mL (MOM) 30 mL ORAL DAILY PRN - [MAR Hold due to Transfer] bisacodyl 10 mg suppository (DULCOLAX) 10 mg RECTAL DAILY PRN - [MAR Hold due to Transfer] acetaminophen 650 mg tab(s) (TYLENOL) 650 mg ORAL q 6 H PRN - [MAR Hold due to Transfer] atorvastatin 40 mg tab(s) (LIPITOR) 40 mg ORAL DAILY - [MAR Hold due to Transfer] lisinopril 10 mg tab(s) (ZESTRIL, PRINIVIL) 10 mg ORAL DAILY - [MAR Hold due to Transfer] levothyroxine 25 mcg tab(s) (SYNTHROID) 25 mcg ORAL DAILY - [MAR Hold due to Transfer] insulin lispro pen (rapid acting) (HumaLOG KWIKPEN) SUBCUTANEOUS w MEALS AND HS - [MAR Hold due to Transfer] dextrose 40 % 15 g 15 g ORAL PRN Or - [MAR Hold due to Transfer] glucagon 1 mg injection (GLUCAGEN) 1 mg INTRAMUSCULAR PRN Or - [MAR Hold due to Transfer] dextrose 50% in water 25 mL syringe 12.5 g INTRAVENOUS PRN - [MAR Hold due to Transfer] vancomycin iv piggyback 1.25 g in D5W 250 mL (VANCOCIN) 1.25 g INTRAVENOUS q 12 HR - [MAR Hold due to Transfer] vancomycin dosing and monitoring per pharmacy OTHER As Directed - [MAR Hold due to Transfer] piperacillin-tazobacta m iv piggyback 3.375 g in dextrose (iso-osmotic) 50 mL (ZOSYN) 3.375 g INTRAVENOUS q 6 H - [MAR Hold due to Transfer] clindamycin iv piggyback 600 mg in D5W 50 mL (CLEOCIN) 600 mg INTRAVENOUS q 6 H Labs: Recent Labs 08/23/19 0345 08/22/19 0454 NA 133* 133* K 3.8 4.1 CHLOR 103 104 CO2 22 21 BUN 15 31* CREAT 0.88 0.95 GLUC 96 218* ANION 12 12 CA 7.2* 7.1* MG 0.9* -- P 2.1* -- ALB -- 1.7* AST -- 81* ALT -- 73 ALKPHOS -- 107 TBILI -- 0.5 WBC 18.79* 19.76* HB 10.2* 9.4* HCT 31.0* 28.4* PLT 421* 380* Exam: GENERAL: No distress, Alert NEURO: AANDOx3, CN II-XII grossly intact HEENT: normocephalic, atraumatic, EOMI NECK: trachea midline, no JVD LUNGS: Unlabored breathing O2 Therapy: Room Air CARDIAC: Regular rate, BP as above ABDOMEN: Soft, non-tender, non-distended EXTREMITIES: necrotic RLE digits, worsening erythema and swelling to RLE, malodorous, non-tender PSYCH: normal mood and affect ASSESSMENT AND PLAN: Active Hospital Problems Diagnosis Date Noted - Malnutrition of moderate degree (HCC) 08/22/2019 - Gangrene of foot (HCC) 08/21/2019 - Diabetes (HCC) 08/21/2019 - HTN (hypertension) 08/21/2019 - Dyslipidemia 08/21/2019 - Hypothyroidism 08/21/2019 Assessment: 79 year old male with PMH thyroid disease, HTN, dyslipidemia, DM, claudication who presents with necrosis of R foot. Plan: Foot wound examined with Dr. Figueroa at bedside. WBC stable, on abx per ID, afebrile Vanc/zosyn/clinda PVRs reviewed Tentative plan was for angio today but given appearence of gas and fluid seen on IANDD performed by podiatry and erythema, patient was consented for amputation. MRI with OM in 2nd distal phalanx and 2-5 metatarsal head Assessment and plan discussed with attending: Dr. Figueroa, agronomist for Dr. Parmar SIGNATURE: Tom Prescott DO PATIENT NAME: Elizabeth Modi DATE: August 23, 2019 TIME: 8:02 AM Vascular AND Thoracic Surgery Service Pager: For questions or concerns Mon-Mon 6a-5p please page [phone]. After 5pm and on Weekends and Holidays, please page [phone] if in ICU or [phone] if on RNF. Karl Russell, RN, RN 08/23/2019 9:27 AM Signed Fall risk protocol initiated. Fall risk wrist band applied and yellow sock applied to left foot. SR up x2. Call light in reach. Urinal offered. Jennifer Crooks MD 08/23/2019 9:35 AM Attested Attestation signed by Gordo Figueroa at 08/23/2019 10:01 AM I was present for the entire procedure and performed the procedure with the assistance of the resident and the assistant store manager operations BRIEF OP / PROCEDURE NOTE LOG ID: [id number] Surgery/Procedure Date: 08/23/2019 Incision/Procedure Start Time: 8:42 AM Incision Close/Procedure End Time: 9:04 AM Surgeon(s)/Procedurali st(s) and Senior Advocate(s): Surgeon(s) and Role: * Gordo Figueroa - Primary No Additional Staff Procedure(s): 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 Anesthesia: Monitored Anesthesia Care Findings: multiple infected, necrotic infection wounds over right foot; wet gangrene Estimated Blood Loss: 5 cc/ml Abx: vanc/zosyn/clinda Specimens Removed: Yes, Right foot was sent to surgical pathology Drains: None Complications: None PRE-OP/PRE-PROCEDURE DIAGNOSIS: severe PVD, wet gangrene R foot POST-OP/POST-PROCEDURE DIAGNOSIS: Same as Preop SIGNATURE: Jennifer Crooks MD PATIENT NAME: Elizabeth Modi DATE: August 23, 2019 TIME: 9:29 AM PAGER/CONTACT #: Sj Huizar DO 08/23/2019 11:24 AM Signed POST ANESTHESIA EVALUATION NOTE SERVICE DATE: 08/23/2019 SERVICE TIME: 11:24 AM : 1940 Vitals: 08/23/19 0600 08/23/19 0805 08/23/19 0911 08/23/19 1015 Temp: 36.4 ?C (97.5 ?F) 36.9 ?C (98.4 ?F) 36 ?C (96.8 ?F) 36 ?C (96.8 ?F) 08/23/19 0911 08/23/19 0915 08/23/19 0930 08/23/19 1015 BP: 136/83 121/60 148/66 133/65 08/23/19 0930 08/23/19 0945 08/23/19 1000 08/23/19 1015 Pulse: 87 87 88 89 08/23/19 0930 08/23/19 0945 08/23/19 1000 08/23/19 1015 Resp: 19 21 20 19 08/23/19 0930 08/23/19 0945 08/23/19 1000 08/23/19 1015 SpO2: 100% 96% 95% 95% Validated Vital Signs: Yes POST ANES STATUS: No apparent anesthetic complications. The patient is appropriately hydrated with stable respiratory and cardiovascular status. Patient has safe and adequate airway control. The patient has appropriate pain relief and no significant post operative nausea or vomiting. The patient has achieved baseline mental status. Intra-Operative Events: No Significant Anesthesia Events Further assessment by Anesthesia Service: None Other Remarks: SIGNATURE: Sj Huizar DO PATIENT NAME: Elizabeth Modi DATE: August 23, 2019 TIME: 11:24 AM PAGER/CONTACT #: [phone] Sue Bianchi DO 08/23/2019 3:48 PM Signed DEPARTMENT OF HOSPITAL MEDICINE PROGRESS NOTE SERVICE DATE: 08/23/2019 SERVICE TIME: 12:20 PM Hospital Medicine/Primary Attending: Sue Bianchi DO NIGHT AND WEEKEND COVERAGE: After 7pm, please call cross cover pager #[phone] Subjective INTERVAL HPI: Patient seen and examined. Worsening infection and patient went for amputation this morning. No pain currently and about to eat lunch. Family at bedside. Denies chest pain or SOB. MEDICATIONS: Reviewed Objective PHYSICAL EXAM: BP 126/64 Pulse 73 Temp (Src) 97.7 (Oral) Resp 18 Ht 5' 10" (1.78m) Wt 187 lb 6.3 oz (85.0kg) SpO2 99% BMI 26.89 kg/(m2). O2 Therapy: Nasal Cannula, Liters: 2 Physical Exam Performed Constitutional - Vitals as above, not in acute distress Resp - Clear to auscultate both sides, no wheezes, crackles or rales, no labored breathing CVS- RRR. No murmur, gallop or rub, pulse 2+ GI - NTND, bowel sounds normally heard, no mass palpable MANAGER AUDIO- cranial nerves 2 to 12 grossly intact, no focal motor or sensory deficits noted, speech normal Psych- A ANDO x 3, mood normal Skin- R lower extremity dressing intact, wound care notes and images reviewed Lines, Drains, and Airways Line Peripheral 08/21/199 Assessment Left Antecubital 20 Gauge 1 day Peripheral 08/21/19 2240 Assessment Right Antecubital 20 Gauge 1 day Reviewed lines and needs to be continued: REASONS: Intravenous antibiotics DATA: Diagnostic tests reviewed for today's visit: Most recent labs and imaging results. Assessment/Plan #sepsis POA-secondary to foot infection, gangrene, continue vancomycin, zosyn and clindamycin for now, await culture data, surgical plans #RLE wound infection with wet gangrene and necrosis POD #0 s/p amputation-plan now is for arteriogram likely next week and then possibly bka v aka pending results, vascular and orthopedics following along #leukocytosis-due to above, trend, continue IV antibiotics #anemia-will check iron studies, no prior available, no evidence bleeding, repeat in am #hx PAD-continue statin #DM 2, uncontrolled-patient had been on insulin in past, unable to afford. He then started pills and a1c has gone from 7 to 9 to 9.8 today, continue SSI, check a1c, hold po medication for now, endocrinology consult given likely needs insulin but with issues affording, appreciate input #hypothyroidism-contin ue synthroid #hypomagnesemia-replac e and follow #hypophos-replace and follow #HTN-continue lisinopril #HLD-statin Medication and Non-Pharmacologic VTE Prophylaxis/Anticoagul ants Anticoagulant AND Antiplatelet Medications (From admission, onward) Start Dose Route Frequency Ordered Stop 08/21/19 193 heparin 5,000 Units injection (Medical Risk Categories) 5,000 Units SUBCUTANEOUS EVERY 12 HOURS 08/21/191915 -- 08/21/191914 vte non-pharmacologic prophylaxis - none indicated (fl,oh) 08/21/191914 activity - mobilize patient (de,mi) VTE Prophylaxis: VTE prophylaxis appropriate Disposition: Home with [facility] Plan of care discussed with: Provider, RN, Patient SIGNATURE: Sue Bianchi DO PATIENT NAME: Elizabeth Modi DATE: August 23, 2019 TIME:12:20 PM PAGER/CONTACT #: [phone] Doris Eden MD 08/23/2019 1:21 PM Signed I have reviewed the patient's medical record in detail. Consult note dictated. See orders for Lantus/oral agents. Can use OTC Novolin N at home. Doris Eden MD. Tami Patricio RN, RN 08/23/2019 3:20 PM Signed CARE MANAGEMENT: ASSESSMENT AND DISCHARGE PLAN SERVICE DATE: August 23, 2019 SERVICE TIME: 3:18 PM PRIMARY CARE PHYSICIAN: No primary care provider on file. 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 Last discharge within 30 days: No Advance Directive: Current Advance Directive: None Community Health Educator Attempted to Assist with AD Completion: Yes Action: Education Provided Health LiteracyHow often do you need to have someone help you when you read instructions, pamphlets, or other written material from your doctor or pharmacy? : 1 - Never How confident are you filling out medical forms by yourself?: 1 - Extremely If Patient scores > 3 on either question, the following interventions were put into place:: Patient did not score > 3 on either question. Baseline Mental Status Prior to this Illness what was the patient's Baseline Mental Status?: Alert AND Oriented Prior to this illness, has anyone described the patient having any of the following behaviors?: Not Applicable Relationship of the informant to the patient:: Self Name of Informant: : Angelic Functional Status: Independent Does Patient Currently Receive Any Community Services or Home Care?: None Equipment Prior to Admission: Cane;Walker;Wheelchair SOCIAL: Living Arrangements: Home Lives With: Alone Financial Resources: RetiredPrimary Contact: Extended Emergency Contact Information Primary Emergency Contact: Angelic Sue Mobile Relation: Daughter Supportive Patient Contact:: Yes Social Needs Food insecurity Worry: Patient refused Inability: Patient refused Resources Needed: No Social Needs Financial resource strain: Not very hard Social Needs Transportation needs Medical: Patient refused Non-medical: Patient refused Caregiver AssessmentCaregiver is ready, willing and able to meet the patient's needs as recommended by the inter-professional team:: No Does the patient have an acute stroke diagnosis, or has the patient had a stroke during this admission?: No Patient's transition needs and plan for meeting these needs: Anticipate AR Patient's perception of need for this admission: . Medication Adherance I am convinced of the importance of my prescription medication: 0 - Agree Mostly I worry that my prescription medication will do more harm than good to me : 0 - Disagree Mostly I feel financially burdened by my [id number] expenses for my prescription medication:: 0 - Agree Somewhat Risk Score: 0 Patient is categorized as: Low risk < 2 Are you interested in bedside delivery of your medications? No Is Patient Psychosocially Complex?: No ASSESSMENT AND PLAN: Medical Needs: Medical Needs: None Psychosocial Needs: Psychosocial Needs: None FREEDOM OF CHOICE EXPLAINED: [place] of Choice Given: Yes Level of Care Discussed: Inpatient Rehab Facility Financial Disclosure Provided: Yes Financial Disclosure Comments: ESR Provider List: [facility] refused [facility] POTENTIAL TRANSITION PLANS Rehab Facility Spoke with pt at the bedside. Pt states that he lives at home alone indept FILTER TENDER JELLY, but he states that his daughter Nina assists as needed. Pt states that he has a PCP in [place]. Pt is s/p right foot amp. Anticipate AR needs at d/c. Await PT/OT evals. Pt would like [facility] rehab- referral sent. Pt will need auth and likely transport at d/c. Will follow. SIGNATURE: Tami Patricio RN PATIENT NAME: Elizabeth Modi DATE: August 23, 2019 TIME: 3:18 PM PAGER/CONTACT #: [phone] Paulo Landis MD 08/23/2019 3:55 PM Addendum PROGRESS NOTE INFECTIOUS DISEASE SERVICE DATE: 08/23/2019 SERVICE TIME: 3:49 PM BRIEF SUMMARY: 79M DM2, HTN, chronic intermittent claudication, hypothyroidism, presented with R foot gangrene for 1.5 weeks. ASSESSMENT: 1. 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 Await full op report 2. DM2 uncontrolled 3. Severe PAD Estimated Creatinine Clearance: 71.4 mL/min (based on SCr of 0.88 mg/dL). RECOMMENDATIONS: - Nasal MRSA screen - Cont vanco #2 - If MRSA nasal neg and swab continues to be neg for MRSA, d/c vancomycin - d/c zosyn - d/c clindamycin - Start unasyn - Plan for transition to Augmentin 875mg PO BID x 14 days total when able to be discharged Dr Regan Paredes is available over the weekend if there is any question SUBJECTIVE: Interval Events: Doing well after surgery Medications: Current Facility-Administered Medications Medication Dose Route Frequency - heparin 5,000 Units injection 5,000 Units SUBCUTANEOUS q 12 H - aluminum-magnesium hydroxide-simethicone 200-200-20 mg/5 mL 30 mL (MAALOX,MYLANTA,MAG-AL PLUS) 30 mL ORAL DAILY PRN - ondansetron 4 mg tab(s) (ZOFRAN) 4 mg ORAL q 6 H PRN Or - ondansetron (PF) 4 mg injection (ZOFRAN) 4 mg INTRAVENOUS q 6 H PRN - polyethylene glycol 3350 17 g packet (MIRALAX, GLYCOLAX) 17 g ORAL DAILY PRN - docusate sodium 100 mg cap(s) (COLACE) 100 mg ORAL BID PRN - magnesium hydroxide 400 mg/5 mL 30 mL (MOM) 30 mL ORAL DAILY PRN - bisacodyl 10 mg suppository (DULCOLAX) 10 mg RECTAL DAILY PRN - acetaminophen 650 mg tab(s) (TYLENOL) 650 mg ORAL q 6 H PRN - atorvastatin 40 mg tab(s) (LIPITOR) 40 mg ORAL DAILY - lisinopril 10 mg tab(s) (ZESTRIL, PRINIVIL) 10 mg ORAL DAILY - levothyroxine 25 mcg tab(s) (SYNTHROID) 25 mcg ORAL DAILY - dextrose 40 % 15 g 15 g ORAL PRN Or - glucagon 1 mg injection (GLUCAGEN) 1 mg INTRAMUSCULAR PRN Or - dextrose 50% in water 25 mL syringe 12.5 g INTRAVENOUS PRN - vancomycin iv piggyback 1.25 g in D5W 250 mL (VANCOCIN) 1.25 g INTRAVENOUS q 12 HR - vancomycin dosing and monitoring per pharmacy OTHER As Directed - piperacillin-tazobacta m iv piggyback 3.375 g in dextrose (iso-osmotic) 50 mL (ZOSYN) 3.375 g INTRAVENOUS q 6 H - magnesium sulfate in sterile water 4 g iv piggyback 4 g INTRAVENOUS ONCE - magnesium sulfate in sterile water 4 g iv piggyback 4 g INTRAVENOUS ONCE - dextrose 5% in NaCl 0.45% with 20 mEq/L KCl iv infusion 80 mL/hr INTRAVENOUS CONTINUOUS - gabapentin 100 mg cap(s) (NEURONTIN) 100 mg ORAL q 8 H - [START ON 08/24/2019] metoprolol succinate ER 25 mg tab(s) (TOPROL XL) 25 mg ORAL DAILY - insulin lispro pen (rapid acting) (HumaLOG KWIKPEN) SUBCUTANEOUS w MEALS - [START ON 08/24/2019] glimepiride 4 mg tab(s) (AMARYL) 4 mg ORAL DAILY WITH BREAKFAST - metFORMIN 1,000 mg tab(s) (GLUCOPHAGE) 1,000 mg ORAL BID w MEALS - insulin glargine 10 Units pen (long acting) (LANTUS SOLOSTAR, BASAGLAR KWIKPEN) 10 Units SUBCUTANEOUS AT BEDTIME OBJECTIVE: Physical Exam: BP 126/64 Pulse 73 Temp 36.5 ?C (97.7 ?F) (Oral) Resp 18 Ht 177.8 cm (5' 10") Wt 85 kg (187 lb 6.3 oz) SpO2 99% BMI 26.89 kg/m? GENERAL APPEARANCE: Comfortable RLE BKA wrapped Lab data: WBC (thou/cmm) Date Value 08/23/2019 18.79 08/22/2019 19.76 Platelet Count (thou/cmm) Date Value 08/23/2019 421 08/22/2019 380 Creatinine (mg/dL) Date Value 08/23/2019 0.88 08/22/2019 0.95 AST (U/L) Date Value 08/22/2019 81 ALT (U/L) Date Value 08/22/2019 73 Microbiology data: Reviewed DATA: Diagnostic Tests Reviewed for Today's Visit: Most recent labs Paulo Landis MD Infectious Disease Respiratory [place] Pager: [phone] August 23, 2019 Previous Version ISAC NAVARRO PHARMACIST 08/23/2019 7:37 PM Signed PHARMACY VANCOMYCIN DOSING NOTE Patient Name: Elizabeth Modi Admission Date: 08/21/2019 Date of Consult: 08/23/2019 Time of Consult: 7:31 PM Indication: Skin/Soft tissue infection Goal Range: 10-20 mcg/mL RECOMMENDATIONS/PLAN: Pharmacy consulted for vancomycin dosing for Elizabeth Modi, a 79 year old, male who is being treated with vancomycin for S/STI 1. Patient is currently ordered Vancomycin 1.25 g IV q12h. Today is day 2 of therapy . 2. The most recent vancomycin level was 22.0 mcg/mL drawn at 18:30 on 08-23-2019. This is a 11 hour level on the 2nd day of therapy. 3. Will decrease vancomycin to 1.25 g with a dosing interval of q24h for this 79 YO patient 4. The next vancomycin level will be ordered for 08-27-2019 at 07:00 before 4th dose of new regimen unless clinically indicated sooner. (Pharmacy will order) We will follow patient renal function, vancomycin levels and doses with you during the course of therapy. Additional recommendations will appear in follow up notes. If [place] have [place] [phone]. Age: [age] year old Allergies: ALLERGIES No Known Allergies Last 3 Encounter Wt Readings: Date: Wt: 08/21/2019 85 kg (187 lb 6.3 oz) Last 1 Encounter Ht Readings: Date: Ht: 08/21/2019 177.8 cm (5' 10") CrCl: 71.4 mL/min Temp (24hrs), Av.4 ?C (97.6 ?F), Min:36 ?C (96.8 ?F), Max:36.9 ?C (98.4 ?F) - Current Temp: 36.7 ?C (98.1 ?F) Labs BUN (mg/dL) Date Value 08/23/2019 15 08/22/2019 31 (H) Creatinine (mg/dL) Date Value 08/23/2019 0.88 08/22/2019 0.95 WBC (thou/cmm) Date Value 08/23/2019 18.79 (H) 08/22/2019 19.76 (H) Vancomycin Levels: Vancomycin,Random (mg/L) Date/Time Value 08/23/2019 1830 22.0 ISAC NAVARRO, PHARMACIST Francine Roberts MD 08/24/2019 7:53 AM Attested Attestation signed by Ryan Allen at 08/24/2019 11:30 AM I personally saw and examined the patient on 08/24/19. I reviewed the resident's note. I agree with the resident's assessment and plan unless otherwise noted. Patient feeling well. Plan for dressing change tomorrow and probably revision to below-knee amputation this week if vascular and infectious issues are stable. Vascular/Thoracic Surgery Progress Note SERVICE DATE: 08/24/2019 Vascular AND Thoracic Surgery Service Pager: For questions or concerns Mon-Fri 6a-5p please page [phone]. After 5pm and on Weekends and Holidays, please page [phone] if in ICU or [phone] if on RNF. Subjective SUBJECTIVE: Denies leg pain. Feeling better overall. No complaints. Tolerating a diet. Diet: DIET CARBOHYDRATE CONTROLLED Objective OBJECTIVE: Vitals: Temp (24hrs), Av.5 ?C (97.7 ?F), Min:36 ?C (96.8 ?F), Max:36.9 ?C (98.4 ?F) BP 128/58 Pulse 77 Temp 36.9 ?C (98.4 ?F) (Oral) Resp 16 Ht 177.8 cm (5' 10") Wt 85 kg (187 lb 6.3 oz) SpO2 94% BMI 26.89 kg/m? O2 Therapy: Nasal Cannula IANDO: Date 08/23/19 07 - 08/24/19 0659 08/24/19 07 - 08/25/19 0659 Shift 7722-0142 1783-6104 0194-1327 24 Hour Total 7983-6986 6437-0732 5790-5803 24 Hour Total INTAKE IV 625 625 OR Crystalloid intake (mL) 250 250 Volume (mL) (lactated ringers infusion) 125 125 Volume (mL) (vancomycin iv piggyback 1.25 g in D5W 250 mL (VANCOCIN)) 250 250 Shift Total 625 625 OUTPUT Urine 179 316 4139 Void (ml) 244 395 3969 Blood 50 50 Estimated Blood loss 50 50 Shift Total 722 912 7906 Weight (kg) 85 85 85 85 85 85 85 85 MEDICATIONS Current Facility-Administered Medications Medication Dose Route Frequency - dextrose 5% in NaCl 0.45% with 20 mEq/L KCl iv infusion 80 mL/hr INTRAVENOUS CONTINUOUS - gabapentin 100 mg cap(s) (NEURONTIN) 100 mg ORAL q 8 H - metoprolol succinate ER 25 mg tab(s) (TOPROL XL) 25 mg ORAL DAILY - insulin lispro pen (rapid acting) (HumaLOG KWIKPEN) SUBCUTANEOUS w MEALS - glimepiride 4 mg tab(s) (AMARYL) 4 mg ORAL DAILY WITH BREAKFAST - metFORMIN 1,000 mg tab(s) (GLUCOPHAGE) 1,000 mg ORAL BID w MEALS - insulin glargine 10 Units pen (long acting) (LANTUS SOLOSTAR, BASAGLAR KWIKPEN) 10 Units SUBCUTANEOUS AT BEDTIME - ampicillin-sulbactam iv piggyback 3 g in NaCl 0.9% 100 mL MB+/ADD-Beryl (UNASYN) 3 g INTRAVENOUS q 6 H - vancomycin iv piggyback 1.25 g in D5W 250 mL (VANCOCIN) 1.25 g INTRAVENOUS q 24 HR - heparin 5,000 Units injection 5,000 Units SUBCUTANEOUS q 12 H - aluminum-magnesium hydroxide-simethicone 200-200-20 mg/5 mL 30 mL (MAALOX,MYLANTA,MAG-AL PLUS) 30 mL ORAL DAILY PRN - ondansetron 4 mg tab(s) (ZOFRAN) 4 mg ORAL q 6 H PRN Or - ondansetron (PF) 4 mg injection (ZOFRAN) 4 mg INTRAVENOUS q 6 H PRN - polyethylene glycol 3350 17 g packet (MIRALAX, GLYCOLAX) 17 g ORAL DAILY PRN - docusate sodium 100 mg cap(s) (COLACE) 100 mg ORAL BID PRN - magnesium hydroxide 400 mg/5 mL 30 mL (MOM) 30 mL ORAL DAILY PRN - bisacodyl 10 mg suppository (DULCOLAX) 10 mg RECTAL DAILY PRN - acetaminophen 650 mg tab(s) (TYLENOL) 650 mg ORAL q 6 H PRN - atorvastatin 40 mg tab(s) (LIPITOR) 40 mg ORAL DAILY - lisinopril 10 mg tab(s) (ZESTRIL, PRINIVIL) 10 mg ORAL DAILY - levothyroxine 25 mcg tab(s) (SYNTHROID) 25 mcg ORAL DAILY - dextrose 40 % 15 g 15 g ORAL PRN Or - glucagon 1 mg injection (GLUCAGEN) 1 mg INTRAMUSCULAR PRN Or - dextrose 50% in water 25 mL syringe 12.5 g INTRAVENOUS PRN - vancomycin dosing and monitoring per pharmacy OTHER As Directed Labs: Recent Labs 08/23/19 0345 08/22/19 0454 NA 133* 133* K 3.8 4.1 CHLOR 103 104 CO2 22 21 BUN 15 31* CREAT 0.88 0.95 GLUC 96 218* ANION 12 12 CA 7.2* 7.1* MG 0.9* -- P 2.1* -- ALB -- 1.7* AST -- 81* ALT -- 73 ALKPHOS -- 107 TBILI -- 0.5 WBC 18.79* 19.76* HB 10.2* 9.4* HCT 31.0* 28.4* PLT 421* 380* Exam: GENERAL: No distress, Alert, pleasant, smiling NEURO: AANDOx3, CN II-XII grossly intact HEENT: normocephalic, atraumatic, EOMI NECK: trachea midline, no JVD LUNGS: Unlabored breathing O2 Therapy: Nasal Cannula CARDIAC: Regular rate, BP as above ABDOMEN: Soft, non-tender, non-distended EXTREMITIES: R stump jero wrap in place with serosang drainage on dressing PSYCH: normal mood and affect ASSESSMENT AND PLAN: Active Hospital Problems Diagnosis Date Noted - Malnutrition of moderate degree (HCC) 08/22/2019 - Gangrene of foot (HCC) 08/21/2019 - Diabetes (HCC) 08/21/2019 - HTN (hypertension) 08/21/2019 - Dyslipidemia 08/21/2019 - Hypothyroidism 08/21/2019 Assessment: 79 year old male with PMH thyroid disease, HTN, dyslipidemia, DM, claudication who presents with necrosis of R foot. 36 R distal below knee guillotine amputation Plan: - DIET CARBOHYDRATE CONTROLLED - WBC stable, on abx per ID, afebrile - unasyn, vanco - dressing change tomorrow - further care per primary Assessment and plan discussed with attending: Dr. Allen SIGNATURE: Francine Roberts MD PATIENT NAME: Elizabeth Modi DATE: August 24, 2019 TIME: 8:02 AM Vascular AND Thoracic Surgery Service Pager: For questions or concerns Mon-Mon 6a-5p please page [phone]. After 5pm and on Weekends and Holidays, please page [phone] if in ICU or [phone] if on RNF. BHUPINDER ORTIZ 08/24/2019 9:16 AM Signed PHARMACY VANCOMYCIN DOSING NOTE Patient Name: Elizabeth Modi Admission Date: 08/21/2019 Date of Consult: 08/24/2019 Time of Consult: 9:15 AM The primary service has discontinued vancomycin therapy. Pharmacy vancomycin dosing service will sign off. Thank you for allowing us to participate in this patient's care. Please contact pharmacy if questions. MARTHA RYAN PHARMACIST Ext: [phone] Edy Paredes MD 08/24/2019 9:20 AM Signed Edy Paredes MD, MS, FACP, [facility] Division of Infectious Dises[facility] [address] [facility] [address] [place] [address] Office: [phone] INFECTIOUS DISEASE CONSULT PROGRESS NOTE SERVICE DATE: 08/24/2019 SERVICE TIME: 9:17 AM Subjective INTERVAL HISTORY: Lying in bed, resting comfortably. No complaints. PERTINENT ROS: Denies fever or chills. Current Facility-Administered Medications Medication Dose Route Frequency - phosphorus 250 mg tab(s) (K PHOS NEUTRAL) 250 mg ORAL PC and HS - gabapentin 100 mg cap(s) (NEURONTIN) 100 mg ORAL q 8 H - metoprolol succinate ER 25 mg tab(s) (TOPROL XL) 25 mg ORAL DAILY - insulin lispro pen (rapid acting) (HumaLOG KWIKPEN) SUBCUTANEOUS w MEALS - glimepiride 4 mg tab(s) (AMARYL) 4 mg ORAL DAILY WITH BREAKFAST - metFORMIN 1,000 mg tab(s) (GLUCOPHAGE) 1,000 mg ORAL BID w MEALS - insulin glargine 10 Units pen (long acting) (LANTUS SOLOSTAR, BASAGLAR KWIKPEN) 10 Units SUBCUTANEOUS AT BEDTIME - heparin 5,000 Units injection 5,000 Units SUBCUTANEOUS q 12 H - ondansetron 4 mg tab(s) (ZOFRAN) 4 mg ORAL q 6 H PRN Or - ondansetron (PF) 4 mg injection (ZOFRAN) 4 mg INTRAVENOUS q 6 H PRN - polyethylene glycol 3350 17 g packet (MIRALAX, GLYCOLAX) 17 g ORAL DAILY PRN - docusate sodium 100 mg cap(s) (COLACE) 100 mg ORAL BID PRN - magnesium hydroxide 400 mg/5 mL 30 mL (MOM) 30 mL ORAL DAILY PRN - bisacodyl 10 mg suppository (DULCOLAX) 10 mg RECTAL DAILY PRN - acetaminophen 650 mg tab(s) (TYLENOL) 650 mg ORAL q 6 H PRN - atorvastatin 40 mg tab(s) (LIPITOR) 40 mg ORAL DAILY - lisinopril 10 mg tab(s) (ZESTRIL, PRINIVIL) 10 mg ORAL DAILY - levothyroxine 25 mcg tab(s) (SYNTHROID) 25 mcg ORAL DAILY - dextrose 40 % 15 g 15 g ORAL PRN Or - glucagon 1 mg injection (GLUCAGEN) 1 mg INTRAMUSCULAR PRN Or - dextrose 50% in water 25 mL syringe 12.5 g INTRAVENOUS PRN Objective PHYSICAL EXAM: Vital Signs: BP 143/71 Pulse 86 Temp 36.5 ?C (97.7 ?F) (Oral) Resp 18 Ht 177.8 cm (5' 10") Wt 77.5 kg (170 lb 13.7 oz) SpO2 97% BMI 24.52 kg/m? Tmax 36.9 HEENT moist mouth Lungs CTA anteriorly Heart S1 S2 Abdomen soft, flat, NT Extremities kerlex wrap on R stump with some bloody drainage DATA: Diagnostic Tests Reviewed for Today's Visit: WBC 9.2, creatinine 0.7 Impression/Recommendat ions Active Problems: Gangrene of foot (HCC) POA: Yes Assessment AND Plan: s/p R BKA. DC antibiotics and observe. Diabetes (HCC) POA: Yes Assessment AND Plan: Complicates management. Leukocytosis POA: Yes Assessment AND Plan: WBC decreasing 18 to 9. No active ID issues, will sign off. SIGNATURE: Edy Paredes MD, MS, FACP, FIDSA PATIENT NAME: Elizabeth Modi DATE: August 24, 2019 TIME: 9:16 AM PAGER/CONTACT #: [phone] Sue Bianchi DO 08/24/2019 5:16 PM Signed [facility]MENT OF [facility] MEDICINE PROGRESS NOTE SERVICE DATE: 08/24/2019 SERVICE TIME: 12:40 PM Hospital Medicine/Primary Attending: Sue Bianchi DO NIGHT AND WEEKEND COVERAGE: After 7pm, please call cross cover pager #[phone] Subjective INTERVAL HPI: Patient seen and examined. Feeling much better today. Up and eating lunch. No complaints of chest pain or SOB. MEDICATIONS: Reviewed Objective PHYSICAL EXAM: BP 134/59 Pulse 78 Temp (Src) 98.2 (Temporal) Resp 18 Ht 5' 10" (1.78m) Wt 170 lb 13.7 oz (77.5kg) SpO2 98% BMI 24.52 kg/(m2). O2 Therapy: Room Air Physical Exam Performed Constitutional - Vitals as above, not in acute distress Resp - Clear to auscultate both sides, no wheezes, crackles or rales, no labored breathing CVS- RRR. No murmur, gallop or rub, pulse 2+ GI - NTND, bowel sounds normally heard, no mass palpable MANAGER AUDIO- cranial nerves 2 to 12 grossly intact, no focal motor or sensory deficits noted, speech normal Psych- A ANDO x 3, mood normal Skin- R lower extremity dressing intact, wound care notes and images reviewed Lines, Drains, and Airways Line Peripheral 08/21/192238 Assessment Left Antecubital 20 Gauge 2 days Peripheral 08/21/192239 Assessment Right Antecubital 20 Gauge 2 days Reviewed lines and needs to be continued: REASONS: Intravenous antibiotics DATA: Diagnostic tests reviewed for today's visit: Most recent labs and imaging results. Assessment/Plan #sepsis POA-secondary to foot infection, gangrene, resolved #RLE wound infection with wet gangrene and necrosis POD #1 s/p amputation-plan now is for arteriogram likely next week and then possibly bka v aka pending results, vascular and orthopedics following along #leukocytosis-resolved #anemia-improved #hx PAD-continue statin #DM 2, uncontrolled-patient had been on insulin in past, unable to afford. He then started pills and a1c has gone from 7 to 9 to 9.8 today, continue SSI, check a1c, hold po medication for now, endocrinology consult given likely needs insulin but with issues affording, appreciate input #hypothyroidism-contin ue synthroid #hypophos-replace and follow #HTN-continue lisinopril #HLD-statin Medication and Non-Pharmacologic VTE Prophylaxis/Anticoagul ants Anticoagulant AND Antiplatelet Medications (From admission, onward) Start Dose Route Frequency Ordered Stop 08/21/191929 heparin 5,000 Units injection (Medical Risk Categories) 5,000 Units SUBCUTANEOUS EVERY 12 HOURS 08/21/191915 -- 08/21/191914 vte non-pharmacologic prophylaxis - none indicated (de,mi) 08/21/191914 activity - mobilize patient ([place]) VTE Prophylaxis: VTE prophylaxis appropriate Disposition: Home with [facility] Plan of care discussed with: Provider, RN, Patient SIGNATURE: Sue Bianchi DO PATIENT NAME: Elizabeth Modi DATE: August 24, 2019 TIME:12:40 PM PAGER/CONTACT #: [phone] NADIR Cox/Serene 08/24/2019 1:07 PM Signed Occupational Therapy Evaluation SERVICE DATE: 08/24/2019 SERVICE TIME: 1133 to 1208 ROOM: [place] [id number] Recommended Discharge Disposition: Acute Rehab Justification For Post Acute Needs: Anticipate patient will tolerate 3 hours of daily therapy at the time of admission to post-acute setting;Motivated;Will ing to participate;Living the community premorbidly;Cognition intact OT Recommendations to Nursing: Not appropriate for out of bed activity at this time;Encourage patient participation with in-bed ADL?s;Edge of bed ADL?s;With assist of 1 person OT 6 Clicks Score: 15 Precautions/Activity Restrictions: Weight Bearing Restrictions Isolation Type: None Extremity With Weight Bearing Restricted: Right Lower Extremity Right Lower Extremity Weight Bearing Status: NWB ASSESSMENT: Patient presents with deficits in grooming, UE bathing/dressing, LE bathing/dressing, functional transfers, functional mobility, decreased safety awareness, and decreased insight to deficits after 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 Patient functioning below baseline of independent. Requires skilled OT to maximize independence with ADLs and functional transfers. Right stump bleeding, changed pad and placed clean pad, RN aware. Patient Disposition at Start of Session: Supine in Bed;Call Singh in Reach Patient Disposition at End of Session: Supine in Bed;Call Singh in Reach Tolerated Full Session Occupational Therapy Problem List: Education Deficit;Safety Deficits;Impaired Self Care;Decreased Activity Tolerance;Decreased Strength;Functional Mobility Impairment;Balance Impaired Patient /Caregiver Goals: Go To Rehab;Care For Self Goals for Plan of Care: Grooming with: Set Up Upper Body Dressing with: Set Up Lower Body Dressing with: Contact Guard Assistance Toilet Hygiene with: Minimal Assistance Chair Transfer with: Minimal Assistance Toilet Transfer with: Minimal Assistance(BSC) Additional Goal 1: pt will adhere to NWB status for RLE 100% of the time Additional Goal 2: pt will maximize upper body strength to increase transfers to min assist Transfer: stand pivot transfer wtih min assist Rehab Potential: Good PLAN: Treatment Frequency (times per week): 5(1-5) Current admission Treatment Interventions: Education;Self Care / Home Management;Energy Conservation Training;Balance Training;Functional Mobility Training;Strengthening Plan of Care developed with: Patient TREATMENT INTERVENTIONS: Therapy Diagnosis: Reduced mobility-other;Decreas ed activities of daily living (ADL);General symptoms and signs-other Interventions Provided: Evaluation;Self Long-Term Management (61821) $ Evaluation-Moderate (67170) Billed Units: 1 unit OT Evaluation Moderate Complexity: Occupational Profile - Extended review of patient's medical record completed including patient's physical, cognitive, and psycho-social history (please see current hospital course of evaluation). Occupational Performance - Pt presents with deficits in grooming, UE bathing/dressing, LE bathing/dressing, functional transfers, functional mobility, decreased safety awareness, decreased insight into deficits Complexity in Clinical Decision Making - The extent of clinical reasoning was moderate, several treatment options present for the patient, need for modification during the evaluation was minimal/moderate, comorbidities affecting occupational performance: thyroid, HTN, DM, claudication Self Long-Term Management (73044) Treatment Minutes: 10 1 unit Skilled Intervention(s): Educated on the role of OT in the acute care setting. Educated patient on non weight bearing status for right lower extremity. Instructed patient from supine to sit edge of bed and provided cues for proper hand placement to improve bed mobility. Instructed patient from sit to stand at wheeled walker and provided maximal physical assist and cues for proper hand placement and fall prevention (fall guarding). Patient unable to maintain right lower extremity non weight bearing status and unsteady with heavy posterior lean. Provided cues and physical assist for safe hand placement for stand to sit. Educated pt on fall prevention strategies, reinforcing the use of their call light / up with assistance for functional mobility; Pt left in bed with call light in reach upon OT exit. Educated patient and communicated on whiteboard mobility level 1. Total Timed Code Treatment Minutes: 10 Total Treatment Time (minutes): 35 SUBJECTIVE: Current Hospital Course: Chart reviewed; 79 year old male presents with necrosis of R foot. 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 Plan for possible surgery Friday 08/25 for wound closure/further cut down of right lower extremity. 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 Patient agreeable to (more content not included)... Normal [facility] No Panel Information [facility] Vital Signs Date Time Vital Sign Value Performing Clinician Facility 10-16-2024 07:59-0400 Body height 167.[address] Diana Salmeron MD Work Phone: [facility] 10-16-2024 07:59-0400 Body mass index (BMI) [Ratio] 29 kg/m2 Dr. Diana Salmeron MD Work Phone: [facility] 10-16-2024 07:59-0400 Body weight 81.[address] Diana Salmeron MD Work Phone: [facility] 10-16-2024 07:59-0400 Diastolic blood pressure 74 mm[Hg] Dr. Diana Salmeron MD Work Phone: [phone] [place] [address] 10-16-2024 07:59-0400 Heart rate 64 /min Dr. Diana Salmeron MD Work Phone: [phone] [place] [address] 10-16-2024 07:59-0400 Respiratory rate 18 /min Dr. Diana Salmeron MD Work Phone: [phone])[phone] [place] [address] 10-16-2024 07:59-0400 Systolic blood pressure 131 mm[Hg] Dr. Diana Salmeron MD Work Phone: [phone] [place] [address] 10-16-2024 00:07-0400 Body temperature 97.8 [degF] Dr. Diana Salmeron MD Work Phone: [phone] [place] [address] 10-16-2024 00:07-0400 Diastolic blood pressure 76 mm[Hg] Dr. Diana Salmeron MD Work Phone: [phone] [place] [address] 10-16-2024 00:07-0400 Heart rate 68 /min Dr. Diana Salmeron MD Work Phone: [phone] [place] [address] 10-16-2024 00:07-0400 Respiratory rate 16 /min Dr. Diana Salmeron MD Work Phone: [phone] [place] [address] 10-16-2024 00:07-0400 SaO2% (BldA) [Mass fraction] 97 % Dr. Diana Salmeron MD Work Phone: [facility] 10-16-2024 00:07-0400 Systolic blood pressure 148 mm[Hg] Dr. Diana Salmeron MD Work Phone: [facility] 10-15-2024 17:47-0400 Body mass index (BMI) [Ratio] 29.9 kg/m2 Dr. Diana Salmeron MD Work Phone: [phone] [place] [address] 10-15-2024 17:47-0400 Body weight [address] Diana Salmeron MD Work Phone: [phone] [place] [address] 10-15-2024 16:00-0400 Body height 167.[address] Diana Salmeron MD Work Phone: [facility] 10-01-2024 13:22-0400 Body height 167.6 cm Nikolai Connor PA-C Work Phone: [facility] Comment on above: After amputations per patient. 10-01-2024 13:22-0400 Body temperature 97.3 [degF] Nikolai Connor PA-C Work Phone: [facility] 10-01-2024 13:22-0400 Diastolic blood pressure 82 mm[Hg] Nikolai Connor PA-C Work Phone: [facility] Comment on above: Mario notified of blood pressure- pat ient aware to let staff where he resides know of his blood pressure. 10-01-2024 13:22-0400 Heart rate 62 /min Nikolai Connor PA-C Work Phone: [facility] 10-01-2024 13:22-0400 Respiratory rate 14 /min Nikolai Connor PA-C Work Phone: [facility] 10-01-2024 13:22-0400 SaO2% (BldA) [Mass fraction] 97 % Nikolai Connor PA-C Work Phone: [facility] 10-01-2024 13:22-0400 Systolic blood pressure 182 mm[Hg] Nikolai Connor PA-C Work Phone: [facility] Comment on above: Mario notified of blood pressure- pat ient aware to let staff where he resides know of his blood pressure. 01-11-2023 12:58-0400 Body temperature 97.4 [degF] Dr. Dexter Reyes Work Phone: [facility] 01-11-2023 12:58-0400 Diastolic blood pressure 65 mm[Hg] Dr. Dexter Reyes Work Phone: [facility] 01-11-2023 12:58-0400 Heart rate 66 /min Dr. Dexter Reyes Work Phone: [facility] 01-11-2023 12:58-0400 Respiratory rate 17 /min Dr. Dexter Reyes Work Phone: [facility] 01-11-2023 12:58-0400 Systolic blood pressure 113 mm[Hg] Dr. Dexter Reyes Work Phone: [facility] 12-17-2022 12:00-0400 Body temperature 98.8 [degF] Dr. Dexter Reyes Work Phone: [facility] 12-17-2022 12:00-0400 Diastolic blood pressure 68 mm[Hg] Dr. Dexter Reyes Work Phone: [facility] 12-17-2022 12:00-0400 Heart rate 60 /min Dr. Dexter Reyes Work Phone: [facility] 12-17-2022 12:00-0400 Inhaled oxygen flow rate 2 L/min Dr. Dexter Reyes Work Phone: [facility] 12-17-2022 12:00-0400 Respiratory rate 18 /min Dr. Dexter Reyes Work Phone: [facility] 12-17-2022 12:00-0400 SaO2% (BldA) [Mass fraction] 95 % Dr. Dexter Reyes Work Phone: [facility] 12-17-2022 12:00-0400 Systolic blood pressure 147 mm[Hg] Dr. Dexter Reyes Work Phone: [facility] 12-17-2022 06:00-0400 Body mass index (BMI) [Ratio] 32.6 kg/m2 Dr. Dexter Reyes Work Phone: [facility] 12-17-2022 06:00-0400 Body weight 92.[address] Dexter Reyes Work Phone: [facility] 12-15-2022 20:05-0400 Inhaled oxygen concentration 4 % Dr. Dexter Reyes Work Phone: [facility] 12-15-2022 10:54-0400 Body height 167.[address] Dexter Reyes Work Phone: [facility] 09-01-2022 09:59-0400 Body temperature 97.7 [degF] Shana Delgado MD Work Phone: [facility] 09-01-2022 09:59-0400 Diastolic blood pressure 68 mm[Hg] Shana Delgado MD Work Phone: [facility] 09-01-2022 09:59-0400 Heart rate 66 /min Shana Delgado MD Work Phone: [facility] 09-01-2022 09:59-0400 Systolic blood pressure 135 mm[Hg] Shana Delgado MD Work Phone: [facility] 01-13-2022 13:09-0400 Heart rate 79 /min DR KARL BARRERA MD [facility] 01-13-2022 11:36-0400 Body temperature 97.88 [degF] DR KARL BARRERA MD [facility] 01-13-2022 11:36-0400 Diastolic Blood Pressure NBP [address] KARL BARRERA MD [facility] 01-13-2022 11:36-0400 Heart rate 79 /min DR KARL BARRERA MD [facility] 01-13-2022 11:36-0400 Mean blood pressure 79 mm[Hg] DR KARL BARRERA MD [facility] 01-13-2022 11:36-0400 Reason For Taking VItal Signs DR KARL BARRERA MD [facility] 01-13-2022 11:36-0400 Respiratory rate 18 /min DR KARL BARRERA MD [facility] 01-13-2022 11:36-0400 Systolic Blood Pressure NBP [address] KARL BARRERA MD [facility] 01-13-2022 08:42-0400 Heart rate 81 /min DR KARL BARRERA MD [address] 01-13-2022 08:42-0400 Heart rate 82 /min DR KARL BARRERA MD [address] 01-13-2022 07:06-0400 Body temperature 97.52 [degF] DR KARL BARRERA MD [address] [place] [address] 01-13-2022 07:06-0400 Diastolic Blood Pressure NBP [address] KARL BARRERA MD [address] [place] [address] 01-13-2022 07:06-0400 Mean blood pressure 79 mm[Hg] DR KARL BARRERA MD [address] [place] [address] 01-13-2022 07:06-0400 Reason For Taking VItal Signs DR KARL BARRERA MD [address] [place] [address] 01-13-2022 07:06-0400 Respiratory rate 18 /min DR KARL BARRERA MD [address] 01-13-2022 07:06-0400 Systolic Blood Pressure NBP [address] KARL BARRERA MD [address] 01-13-2022 04:52-0400 Body temperature 97.7 [degF] DR KARL BARRERA MD [address] 01-13-2022 04:52-0400 Diastolic Blood Pressure NBP [address] KARL BARRERA MD [address] 01-13-2022 04:52-0400 Mean blood pressure 83 mm[Hg] DR KARL BARRERA MD [address] [place] [address] 01-13-2022 04:52-0400 Reason For Taking VItal Signs DR KARL BARRERA MD [address] 01-13-2022 04:52-0400 Respiratory rate 18 /min DR KARL BARRERA MD [address] [place] [address] 01-13-2022 04:52-0400 Systolic Blood Pressure NBP [address] KARL BARRERA MD [address] [place] [address] 01-12-2022 16:59-0400 Heart rate 71 /min DR KARL BARRERA MD [address] [place] [address] 01-12-2022 09:02-0400 Heart rate 71 /min DR KARL BARRERA MD [address] [place] [address] 01-11-2022 04:44-0400 Diastolic blood pressure 79 mm[Hg] DR KARL BARRERA MD [address] [place] [address] 01-11-2022 04:44-0400 Mean blood pressure 110 mm[Hg] DR KARL BARRERA MD [address] [place] [address] 01-11-2022 04:44-0400 Systolic blood pressure 171 mm[Hg] DR KARL BARRERA MD [address] [place] [address] 01-11-2022 04:02-0400 Diastolic blood pressure 71 mm[Hg] DR KARL BARRERA MD [address] [place] [address] 01-11-2022 04:02-0400 Mean blood pressure 105 mm[Hg] DR KARL BARRERA MD [address] [place] [address] 01-11-2022 04:02-0400 Systolic blood pressure 173 mm[Hg] DR KARL BARRERA MD [address] [place] [address] 01-10-2022 02:13-0400 Diastolic blood pressure 73 mm[Hg] DR KARL BARRERA MD [address] [place] [address] 01-10-2022 02:13-0400 Systolic blood pressure 179 mm[Hg] DR KARL BARRERA MD [address] [place] [address] 01-10-2022 01:27-0400 Signs/Symptoms Transfusion Reaction DR KARL BARRERA MD [address] [place] [address] 01-10-2022 01:27-0400 Transfusion Documentation Ended/Paper DR KARL BARRERA MD [address] [place] [address] 01-10-2022 00:56-0400 Signs/Symptoms Transfusion Reaction DR KARL BARRERA MD [address] [place] [address] 01-10-2022 00:27-0400 Heart rate 63 /min DR KARL BARRERA MD [address] [place] [address] 01-10-2022 00:11-0400 Signs/Symptoms Transfusion Reaction No DR KARL BARRERA MD [address] [place] [address] 01-10-2022 00:11-0400 Heart rate 64 /min DR KARL BARRERA MD [address] [place] [address] 01-09-2022 22:36-0400 Transfusion Documentation Started/Paper DR KARL BARRERA MD [address] [place] [address] 01-06-2022 09:26-0400 Diastolic blood pressure 45 mm[Hg] DR KARL BARRERA MD [address] [place] [address] 01-06-2022 09:26-0400 Mean blood pressure 64 mm[Hg] DR KARL BARRERA MD [address] [place] [address] 01-06-2022 09:26-0400 Systolic blood pressure 103 mm[Hg] DR KARL BARRERA MD [address] [place] [address] 01-06-2022 08:38-0400 Diastolic blood pressure 50 mm[Hg] DR KARL BARRERA MD [address] [place] [address] 01-06-2022 08:38-0400 Mean blood pressure 69 mm[Hg] DR KARL BARRERA MD [address] [place] [address] 01-06-2022 08:38-0400 Systolic blood pressure 107 mm[Hg] DR KARL BARRERA MD [address] [place] [address] 01-06-2022 07:40-0400 Diastolic blood pressure 45 mm[Hg] DR KARL BARRERA MD [address] 01-06-2022 07:40-0400 Mean blood pressure 66 mm[Hg] DR KARL BARRERA MD [address] [place] [address] 01-06-2022 07:40-0400 Systolic blood pressure 113 mm[Hg] DR KARL BARRERA MD [address] [place] [address] 01-05-2022 20:12-0400 SaO2% (BldA) [Mass fraction] 98.4 % DR KARL BARRERA MD [facility] 01-05-2022 18:47-0400 SaO2% (BldA) [Mass fraction] 97.6 % DR KARL BARRERA MD [facility] 01-05-2022 17:13-0400 SaO2% (BldA) [Mass fraction] 97.7 % DR KARL BARRERA MD [facility] 01-05-2022 12:30-0400 Body temperature 98.98 [degF] DR KARL BARRERA MD [address] [place] [address] 01-05-2022 12:25-0400 Body temperature 99 [degF] DR KARL BARRERA MD [address] [place] [address] 01-05-2022 12:20-0400 Body temperature 99.07 [degF] DR KARL BARRERA MD [address] [place] [address] 01-05-2022 12:20-0400 Body temperature 98.51 [degF] DR KARL BARRERA MD [address] [place] [address] 01-05-2022 12:15-0400 Body temperature 98.6 [degF] DR KARL BARRERA MD [address] [place] [address] 01-05-2022 12:10-0400 Body temperature 98.67 [degF] DR AKRL BARRERA MD [address] [place] [address] 01-05-2022 11:54-0400 SaO2% (BldA) [Mass fraction] 98.2 % DR KARL BARRERA MD [facility] 01-05-2022 11:19-0400 SaO2% (BldA) [Mass fraction] 99.4 % DR KARL BARRERA MD [facility] 01-05-2022 10:44-0400 SaO2% (BldA) [Mass fraction] 99.4 % DR KARL BARRERA MD [facility] 01-03-2022 23:07-0400 Mean blood pressure 83 mm[Hg] DR KARL BARRERA MD [address] [place] [address] 01-03-2022 12:05-0400 Body height [address] KARL BARRERA MD [address] [place] [address] 01-03-2022 12:05-0400 Body weight 81.[address] KARL BARRERA MD [address] [place] [address] 01-03-2022 12:05-0400 Body weight 35.28 kg/m2 DR KARL BARRERA MD [address] [place] [address] 01-03-2022 04:54-0400 Body weight 81.[address] KARL BARRERA MD [address] [place] [address] 12-31-2021 03:38-0400 Heart rate 80 /min DR KARL BARRERA MD [address] [place] [address] 12-30-2021 05:08-0400 Body weight 103.[address] KARL BARRERA MD [address] 02-09-2021 12:00-0400 Diastolic blood pressure 53 mm[Hg] Ammy Vicente MD Work Phone: [facility] Work Phone: 02-09-2021 12:00-0400 Heart rate 51 /min [facility] Work Phone: 02-09-2021 12:00-0400 SaO2% (BldA) [Mass fraction] 91 % Ammy Vicente MD Work Phone: [facility] Work Phone: 02-09-2021 12:00-0400 Systolic blood pressure 110 mm[Hg] Ammy Vicente MD Work Phone: [facility] Work Phone: 02-09-2021 11:45-0400 Respiratory rate 16 /min Ammy Vicente MD Work Phone: [facility] Work Phone: 02-09-2021 10:58-0400 Body temperature 98.1 [degF] Ammy Vicente MD Work Phone: [facility] Work Phone: 02-09-2021 08:21-0400 Body height 142.2 cm Ammy Vicente MD [facility] Work Phone: 02-09-2021 08:21-0400 Body mass index (BMI) [Ratio] 36.77 kg/m2 Ammy Vicente MD [facility] Phone[facility] Work Phone: 02-09-2021 08:21-0400 Body weight 74.39 kg Ammy Vicente MD [facility] Phone: [facility] Work Phone: Encounters Encounter Date Encounter Type Care Provider Facility Start: 01-20-2025 ambulatory Victor M DAVID Facility:[facility] Start: 01-14-2025 End: 01-14-2025 ambulatory GAYLA CLINE Facility:[id number] Start: 01-14-2025 End: 01-14-2025 Patient encounter procedure Gayla Cline MD Work Phone: Urology Comment on above: Gross hematuria (Margarita dariel Dx); Left renal mass Start: 12-18-2024 ambulatory Victor M DAVID Facility:[facility] Start: 12-18-2024 Registered Referred Victor M Rojas MD [facility] Start: 12-03-2024 End: 12-03-[address] Diana Salmeron MD Work Phone: -[facility] Start: 12-03-2024 End: 12-03-[address] Victor M Rojas MD -[facility] Work Phone: Start: 11-20-2024 ambulatory Victor M matute OLS Facility:[facility] Start: 11-20-2024 Registered Referred Victor M Rojas MD [facility] Start: 11-07-2024 End: 11-07-[address] Diana Salmeron MD Work Phone: [facility] Start: 11-07-2024 End: 11-07-2024 Departed Referred Christinajuan Whipple [facility] Start: 11-07-2024 Registered Referred Christina quiles [facility] Start: 11-07-2024 End: 11-07-2024 ambulatory Christina Whipple OLS Facility:[facility] Start: 10-23-2024 End: 10-23-[address] Diana Salmeron MD Work Phone: [facility] Work Phone: Start: 10-23-2024 End: 10-23-2024 Departed Referred Victor M Rojas MD [facility] Start: 10-23-2024 End: 10-23-2024 ambulatory Victor M Rojas OLS Facility:[facility] Start: 10-16-2024 End: 10-16-2024 Patient encounter procedure Lauren GARLAND -[facility] Work Phone: Start: 10-16-2024 End: 10-16-2024 ambulatory Diana Salmeron [facility] Start: 10-15-2024 End: 10-16-2024 Emergency department patient visit Dr. Diana Salmeron MD Work Phone: -Emergency Department Work Phone: Start: 10-04-2024 End: 12-04-2024 Follow-up encounter Nikolai Connor PA-C Work Phone: Urology Start: 10-01-2024 End: 10-04-2024 Telephone encounter Nikolai Connor PA-C Work Phone: Urology Start: 10-01-2024 End: 10-01-2024 ambulatory NIKOLAI CONNOR Facility:[facility] Start: 10-01-2024 End: 10-01-2024 Patient encounter procedure Nikolai Connor PA-C Work Phone: Urology Comment on above: Gross hematuria (Margarita dariel Dx); Screening for genitourinary condition Start: 09-24-2024 End: 09-24-[address] Diana Salmeron MD Work Phone: [facility] Work Phone: Start: 09-24-2024 End: 09-24-[address] Victor M Rojas MD -[facility] Work Phone: Start: 09-18-2024 End: 09-18-[address] Diana Salmeron MD Work Phone: [facility] Work Phone: Start: 09-18-2024 End: 09-18-2024 Departed Referred Victor M Rojas MD -[facility] Start: 09-18-2024 [facility] Start: 09-18-2024 End: 09-18-2024 ambulatory Victor M DAVID Facility:[facility] Start: 09-06-2024 End: 09-06-2024 Patient encounter procedure Kacie GARLAND -[facility] Work Phone: Start: 09-06-2024 End: 09-06-2024 ambulatory Diana Salmeron Facility:[facility] Start: 09-05-2024 End: 09-05-2024 ambulatory Christina Tickton TICKET COLLECTOR [employer] USHER Facility:[facility] Start: 09-05-2024 End: 09-05-2024 Patient encounter procedure Christnia Whipple TICKET COLLECTOR OR USHER-C -[facility] Work Phone: Start: 09-03-2024 End: 09-03-2024 ambulatory Christina Whipple TICKET COLLECTOR OR USHER Facility:[facility] Start: 09-03-2024 End: 09-03-2024 Patient encounter procedure Christina Whipple TICKET COLLECTOR OR USHER-C -[facility] Work Phone: Start: 08-21-2024 End: 08-21-[address] Diana Salmeron MD Work Phone: [facility] Work Phone: Start: 08-21-2024 End: 08-21-2024 [facility] Start: 08-21-2024 End: 08-21-2024 ambulatory Victor M Rojas OLS Facility:[facility] Start: 08-01-2024 ambulatory Victor M matute OLS Facility:[facility] Start: 08-01-2024 Registered Referred Victor M Rojas MD -[facility] Start: 07-30-2024 ambulatory Diana Salmeron Facility: [facility] Start: 07-24-2024 ambulatory Vicotr M matute OLS Facility:[facility] Start: 07-24-2024 [facility] Start: 07-23-2024 End: 07-23-2024 ambulatory Victor M Rojas Facility:[facility] Start: 07-23-2024 End: 07-23-[address] Victor M Rojas MD -[facility] Work Phone: Start: 07-05-2024 End: 07-05-2024 ambulatory Christina Johanseneliane TICKET COLLECTOR OR USHER Facility:[facility] Start: 07-05-2024 End: 07-05-2024 Patient encounter procedure Christina Whipple TICKET COLLECTOR OR USHER-C -[facility] Work Phone: Start: 07-02-2024 End: 07-02-2024 ambulatory Nikolai Geeta MAE Work Phone: Urology Comment on above: CT urogram results Start: 07-02-2024 End: 07-02-2024 E-mail encounter from caregiver Nikolai Geeta MAE Work Phone: Urology Start: 06-28-2024 End: 06-28-2024 ambulatory NIKOLAI CONNOR Facility:[facility] Start: 06-28-2024 End: 06-28-2024 Subsequent hospital visit by physician Clare [facility]) Work Phone: Cat Scan Comment on above: Gross hematuria [R31 .0] Start: 06-27-[address] [facility] Facility: [facility] Start: 06-27-2024 [facility] Start: 06-21-2024 End: 07-09-2024 Telephone encounter Nikolai Geeta MAE Work Phone: Urology Comment on above: Results Start: 06-20-[address] [facility] Facility: [facility] Start: 06-20-2024 [facility] Start: 06-18-2024 End: 06-18-2024 ambulatory NIKOLAI CONNOR Facility:[facility] Start: 06-18-2024 End: 06-18-2024 Patient encounter procedure Nikolai Connor PA-C Work Phone: Urology Comment on above: Screening for genito urinary condition (Primary Dx); Gross hematuria; Left renal mass Start: 06-17-2024 End: 06-17-2024 Patient encounter procedure Christina Whipple NP- -[facility] Work Phone: Start: 06-17-2024 End: 06-17-2024 ambulatory Christina Whipple TICKET COLLECTOR OR USHER [facility] Start: 06-17-2024 [facility] Start: 06-06-2024 End: 06-06-2024 Patient encounter procedure Kacie GARLAND -[facility] Work Phone: Start: 06-06-2024 End: 06-06-2024 ambulatory Butros Latouf Facility:[facility] Start: 05-21-2024 End: 05-22-2024 ambulatory Butros Latouf Facility:[facility] Start: 05-08-2024 End: 05-08-2024 ambulatory Butros Latouf Facility:[facility] Start: 04-24-2024 End: 04-24-2024 ambulatory Butros Latouf Facility:[facility] Start: 04-04-2024 End: 04-04-2024 ambulatory Butros Latouf Facility:[facility] Start: 03-26-2024 End: 03-26-2024 ambulatory Butros Latouf Facility:[facility] Start: 03-25-2024 ambulatory Eric Montgomery Facility: [facility] Start: 03-20-2024 ambulatory Butros Latouf Facility: [facility] Start: 03-04-2024 End: 03-04-2024 ambulatory Butros Latouf Facility:[facility] Start: 02-28-2024 End: 02-28-2024 ambulatory Butros Latouf Facility:[facility] Start: 02-22-2024 End: 02-22-2024 ambulatory Efewongbe Oleghe FRANKIE Facility:[facility] Start: 01-29-2024 End: 01-29-2024 ambulatory Efewongbe Oleluise OLS Facility:[facility] Start: 01-24-2024 End: 01-24-2024 ambulatory Efewmoorelandbe Elidiae FRANKIE Facility:[facility] Start: 01-08-2024 End: 01-08-[address] KENNY CHUA MD Facility:[facility] Start: 04-13-2023 Emergency department patient visit [facility] Start: 03-27-2023 Telephone encounter Urology (History ) Urology Start: 02-08-2023 End: 02-08-[address] Dexter Reyes Work Phone: [facility] Work Phone: Start: 02-08-2023 End: 02-08-[address] Dexter Reyes Work Phone: [facility] Work Phone: Start: 01-30-2023 End: 01-30-[address] Dexter Reyes Work Phone: [facility] Work Phone: Start: 01-30-2023 End: 01-30-[address] Dexter Reyes Work Phone: [facility]Rad[facility], [facility] Work Phone: Start: 01-11-2023 End: 01-11-[address] Dexter Reyes Work Phone: [facility] Work Phone: Start: 12-17-2022 Non-patient / Non-visit Dr. Robel Reyes Work Phone: [facility] Work Phone: Start: 12-16-2022 Non-patient / Non-visit Dr. Robel Reyes Work Phone: [facility] Start: 12-16-2022 Non-patient / Non-visit Dr. Robel Reyes Work Phone: [facility] Work Phone: Start: 12-15-2022 Non-patient / Non-visit Dr. Robel Reyes Work Phone: [facility] Start: 12-15-2022 Non-patient / Non-visit Dr. Robel Reyes Work Phone: [facility] Start: 12-15-2022 Non-patient / Non-visit Dr. Robel Reyes Work Phone: [facility] Work Phone: Start: 12-14-2022 End: 12-17-2022 Evaluation and management of inpatient Dr. Dexter Reyes Work Phone: [facility]Medical Surgical 3 Work Phone: Start: 12-14-2022 End: 01-08-2024 Pre-admission assessment DR KENNY CHUA MD [facility] Start: 12-14-2022 Non-patient / Non-visit Dr. Robel Reyes Work Phone: [facility] Work Phone: Start: 09-06-2022 Telephone encounter Quan raygoza DO Work Phone: Rheumatology Comment on above: Patient Update Start: 09-01-2022 End: 09-01-2022 Patient encounter procedure Terence Phelps MD Work Phone: Ophthalmology Comment on above: Optic nerve edema (P rimary Dx) Vision changes (Prim anish Dx); Photosensitivity; PVD (peripheral vascular disease) ([facility]); Type 2 diabetes mellitus with other specified complication, without long-term current use of insulin (HCC); group home current use of systemic steroids; Vitamin D deficiency Start: 01-17-2022 End: 01-17-2022 Patient encounter procedure HUNTER FALCON CARDIOGRAPHER-NAIL ARTIST [facility] Start: 12-30-2021 End: 01-13-2022 Evaluation and management of inpatient DR KARL BARRERA MD [facility] Start: 11-23-2021 End: 11-23-2021 Subsequent hospital visit by physician Michoacano Weinstein MD Work Phone: [facility] Comment on above: CHRONIC HEADACHES Start: 02-09-2021 End: 02-09-2021 Subsequent hospital visit by physician Ammy Vicente MD Work Phone: [facility] General Surgery Comment on above: Arrived Start: 11-13-2020 ambulatory DEXTER-CHI ERIC Facility:[facility] Start: 09-09-2020 ambulatory PAPA REYES Facility:[facility] Procedures Date Procedure Procedure Detail Performing Clinician Start: 11-20-2024 Serum inorganic phosphate measurement Dr. Diana Salmeron MD Work Phone: Start: 10-23-2024 Serum inorganic phosphate measurement Dr. Diana Salmeron MD Work Phone: Start: 10-15-2024 Plain x-ray of elbow Dr. Diana Salmeron MD Work Phone: Start: 10-15-2024 CT of head without contrast Dr. Diana jerome MD Work Phone: Start: 08-21-2024 Serum inorganic phosphate measurement Dr. Diana Salmeron MD Work Phone: Start: 08-01-[address] Diana Salmeron MD Work Phone: Start: 08-01-2024 Urine microalbumin/creatinine ratio measurement Dr. Diana Salmeron MD Work Phone: Start: 07-24-2024 Assay of phosphorus inorganic Dr. Diana Salmeron MD Work Phone: Start: 07-24-2024 Measurement of renal function Dr. Diana Salmeron MD Work Phone: Comment on above: GFR Calc Start: 06-17-[address] Diana Salmeron MD Work Phone: Start: 01-30-[address] Dexter Reyes Work Phone: Start: 12-16-[address] Dexter Reyes Work Phone: Start: 12-16-2022 Investigation of transfusion reaction Dr. Dexter Reyes Work Phone: Start: 12-16-2022 Microbial culture, routine Dr. Dexter Reyes Work Phone: Start: 12-16-2022 Biopsy/Inj or Needle Placement Dr. Dexter heath Work Phone: Start: 12-16-[address] Dexter Reyes Work Phone: Start: 12-15-2022 End: 12-15-[address] Dexter Reyes Work Phone: Start: 12-15-[address] Dexter Reyes Work Phone: Start: 12-15-2022 Plain chest X-ray Dr. Dexter Reyes Work Phone: Start: 12-14-2022 US scan of gallbladder Dr. Dexter Reyes Work Phone: Start: 09-01-2022 End: 09-01-2022 Computerized ophthalmic imaging retina Terence Phelps MD Work Phone: Start: 01-05-2022 Coronary artery bypass graft DR KENNY CHUA MD Comment on above: x1 Start: 02-09-2021 OPERATIVE REPORT 3m Scanning Start: 02-09-2021 Gluc bld gluc mntr dev cleared fda spec home use Ammy Vicente MD Work Phone: Start: 02-09-2021 Gluc bld gluc mntr dev cleared fda spec home use Ammy Vicente MD Work Phone: Start: 09-05-2019 Antibody screen Comment on above: Performed By: #### MAG #### [place] [id number] Start: 06-19-[address] KARL BARRERA MD Comment on above: right below the knee amputation Left below the knee Start: 06-19-2019 Catheter, device (physical object) DR KARL BARRERA MD Comment on above: Temporary dialysis cath Extraction of cataract DR FAYE CHUA MD 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) DR KENNY CHUA MD None (qualifier value) DR FATMATA BARRERA MD Plan of Treatment Date Care Activity Detail Author Start: 10-15-2034 Urine microalbumin profile DTaP,Tdap,Td Vaccine (2 - Td or Tdap) [facility] Start: 02-17-2025 Influenza vaccination [facility] Start: 01-14-2025 End: 01-14-2025 Patient encounter procedure 01/14/2025 9:15 AM EDT Office Visit Urology [address] [place] [id number] Gayla Cline MD [address] [place] [address] WILL BE ON COT, referral for cysto Urology Comment on above: WILL BE ON COT, referral for c ysto Start: 11-08-2024 End: 11-08-2024 Patient encounter procedure 11/08/2024 8:15 AM EDT Office Visit Urology [address] [place] [id number] Gayla Cline MD [address] [place] [address] referral for cysto Urology Comment on above: referral for cysto Start: 10-15-2024 End: 10-15-2024 [facility] Start: 07-02-2024 Cystourethroscopy CYSTO.PANENDO Procedures Routine Gross hematuria Expected: 07/02/2024 (Approximate) [facility] Comment on above: Expected: 07/02/2024 (Approximate) Start: 06-28-2024 End: 06-28-2024 Patient encounter procedure 06/28/2024 1:20 PM EST Appointment Cat Scan [address] [place], [place] [id number] Gross hematuria [R31.0] Cat Scan Comment on above: Gross hematuria [R31.0] Start: 06-25-2024 End: 09-24-2024 CREATININE BLD CREATININE BLD Lab Routine Screening for genitourinary condition Gross hematuria Expected: 06/25/2024 (Approximate), Expires: 09/24/2024 [facility] Comment on above: Expected: 06/25/2024 (Approximate), Expi res: 09/24/2024 Start: 06-25-2024 End: 07-19-2025 CT Kidney WO and W contrast IV CT UROGRAM WO/W IVCON Radiology Routine Gross hematuria Expected: 06/25/2024, Expires: 07/19/2025 [facility] Comment on above: Expected: 06/25/2024, Expires: Start: 06-19-2024 Advance Directive Discussion Advance Directive Discussion [facility] Start: 06-19-2024 Medicare Advantage Annual Wellness Visit Medicare Advantage Annual Wellness Visit [facility] Start: 02-18-2024 Covid-19 Vaccine () Covid-19 Vaccine () [facility] Start: 02-18-2024 Influenza vaccination Influenza Vaccine (#1) [facility] Start: 09-02-2023 Glaucoma screening Dilated Retinal Exam [facility] Start: 09-02-2023 Hepatitis C antibody, confirmatory test DILATED RETINAL EXAM [facility] Start: 08-13-2023 Hemoglobin A1c measurement HbA1C [facility] Start: 08-13-2023 Hemoglobin A1c/Hemoglobin.total in Blood HbA1C [facility] Start: 06-19-2023 Advance Directive Discussion Advance Directive Discussion [facility] Start: 02-17-2023 Influenza vaccination Influenza Vaccine (#1) [facility] Start: 02-15-2023 Hepatitis B screening URINE ALBUMIN:CREATININE RATIO [facility] Start: 12-17-2022 Patient discharge [facility] Start: 12-16-2022 Dietary regime [facility] Start: 12-16-2022 Catheterization of vein [facility] Start: 12-16-2022 Vital signs measurements [facility] Start: 12-15-2022 [facility] Start: 12-15-2022 Consultation [facility] Start: 12-14-2022 Admission procedure [facility] Start: 12-14-2022 Wound care [facility] Start: 12-14-2022 Consultation for treatment [facility] Start: 12-14-2022 Catheterization of vein [facility] Start: 12-14-2022 Following clinical pathway protocol [facility] Start: 12-14-2022 Admission procedure [facility] Start: 12-14-2022 Assessment of risk of venous thromboembolism [facility] Start: 12-14-2022 Care regimes management [facility] Start: 12-14-2022 Insertion of catheter into peripheral vein [facility] Start: 12-14-2022 Providing care according to standard [facility] Start: 12-14-2022 Provision of activity privileges [facility] Start: 12-14-2022 Fall prevention [facility] Start: 12-14-2022 Introduction of urinary catheter [facility] Start: 12-14-2022 Oxygen therapy [facility] Start: 12-14-2022 Referral to occupational therapist [facility] Start: 12-14-2022 Referral to service [facility] Start: 12-14-2022 Measuring intake and output [facility] Start: 12-14-2022 Referral to gastroenterology service [facility] Start: 12-14-2022 Referral to general surgeon [facility] Start: 12-14-2022 Inhalation therapy procedure [facility] Start: 12-14-2022 Patient referral to dietitian [facility] Start: 12-14-2022 End: 12-14-2022 [facility] Start: 10-11-2022 Hemoglobin A1c/Hemoglobin.total in Blood HBA1C [facility] Start: 08-07-2022 Covid-19 Vaccine (6 - Moderna series) Covid-19 Vaccine (6 - Moderna series) [facility] Start: 06-19-2022 ADVANCE DIRECTIVE DISCUSSION ADVANCE DIRECTIVE DISCUSSION [facility] Start: 06-19-2022 DEPRESSION ASSESSMENT DEPRESSION ASSESSMENT [facility] Start: 02-17-2022 Influenza vaccination INFLUENZA (Season Ended) [facility] Start: 06-19-2021 ADVANCE DIRECTIVE DISCUSSION ADVANCE DIRECTIVE DISCUSSION [facility] Start: 03-17-2021 End: 03-17-2021 Patient encounter procedure 03/17/2021 Office Visit Ophthalmology Ammy Vicente MD [address] [place] [phone] [facility] Start: 02-17-2021 Influenza vaccination Flu vaccine (#1) [facility] Work Phone: Start: 02-17-2021 End: 02-17-2021 Patient encounter procedure 02/17/2021 Office Visit Ophthalmology Ammy Vicente MD [address] [place], [place] [phone] [facility] Start: 02-10-2021 End: 02-10-2021 Patient encounter procedure 02/10/2021 Office Visit Ophthalmology Ammy Vicetne MD [address] [place], [place] [phone] [facility] Start: 08-15-2020 Hemoglobin A1c/Hemoglobin.total in Blood HBA1C [facility] Start: 2016 RSV Vaccine (1 - 1-dose 75+ series) RSV Vaccine (1 - 1-dose 75+ series) [facility] Start: 2006 Pneumococcal 65+ years Vaccine (1 of 1 - PPSV23) Pneumococcal 65+ years Vaccine (1 of 1 - PPSV23) [facility] Work Phone: Start: 2001 Hepatitis B Vaccine (1 of 3 - Risk 3-dose series) Hepatitis B Vaccine (1 of 3 - Risk 3-dose series) [facility] Start: 1991 Shingles Vaccine (1 of 2) Shingles Vaccine (1 of 2) [facility] Work Phone: Start: 1991 SHINGRIX VACCINE (1 of 2) SHINGRIX VACCINE (1 of 2) [facility] Start: 1960 DTaP/Tdap/Td vaccine (1 - Tdap) DTaP/Tdap/Td vaccine (1 - Tdap) [facility] Work Phone: Start: 1960 Pneumococcal Vaccine: 50+ (1 of 2 - PCV) Pneumococcal Vaccine: 50+ (1 of 2 - PCV) [facility] Start: 1960 [facility]album[facility] Start: 1959 ANNUAL PCP TEAM CHRONIC DISEASE VISIT ANNUAL PCP TEAM CHRONIC DISEASE VISIT [facility] Start: 1959 Anxiety Screening Anxiety Screening [facility] Start: 1959 BP CONTROLLED (<130/80) BP CONTROLLED (<130/80) [facility] Start: 1959 Depression Screening Depression Screening [facility] Start: 1959 Hepatitis B surface antibody level LDL CHOLESTEROL [facility] Start: 1953 Adult depression screening assessment DEPRESSION SCREENING [facility] Start: 1953 COVID-19 Vaccine (1) COVID-19 Vaccine (1) [facility] Work Phone: Start: 1951 3 comp foot exam completed [facility]ABET[facility] FOOT EXAM [facility] Start: 1951 Diabetic foot examination Diabetic Foot Exam [facility] Start: 1951 Hepatitis B screening URINE ALBUMIN:CREATININE RATIO [facility] Start: 1951 Hepatitis C antibody, confirmatory test DILATED RETINAL EXAM [facility] Start: 1951 Lipid panel Lipid screen [facility] Work Phone: Start: 1947 Pneumococcal Vaccine: 65+ (1 - PCV) Pneumococcal Vaccine: 65+ (1 - PCV) [facility] Start: 1947 PNEUMOCOCCAL: 65+ (1 - PCV) PNEUMOCOCCAL: 65+ (1 - PCV) [facility] Start: 1946 COVID-19 VACCINE (#1) COVID-19 VACCINE (#1) [facility] Start: 1941 Creatinine measurement Creatinine monitoring [facility] Work Phone: Start: 1941 Hepatitis C screening Hepatitis C screen [facility] Work Phone: Start: 1941 Potassium monitoring Potassium monitoring [facility] Work Phone: Start: 1941 Thyroid stimulating hormone measurement TSH testing [facility] Work Phone: Bacteria identified in Urine by Culture [facility] Comment on above: Ordered: 06/18/2024 Bacteria identified in Urine by Culture BACTERIAL CULTURE, URINE Microbiology Routine Gross hematuria 10/01/2024 3:36 PM EDT [facility] Blood glucose - POCT [facility] Work Phone: Comment on above: As Needed until discontinued starting End: 02-09-2021 Creatinine [Mass/volume] in Serum or Plasma Creatinine, serum Lab STAT One Time for 1 Occurrences starting 02/09/2021 until 02/09/2021 [facility] Work Phone: Comment on above: One Time for 1 Occurrences starting 01/18 until 02/09/2021 CT Kidney WO and W contrast IV CT UROGRAM WO/W IVCON Radiology Routine Gross hematuria 06/28/2024 2:26 PM EST [facility] Work Phone: End: 11-03-2025 CT Kidney WO and W contrast IV CT UROGRAM WO/W IVCON Radiology Routine Gross hematuria 1 Occurrences starting 10/04/2024 until 11/03/2025 [facility] Work Phone: Comment on above: 1 Occurrences starting 10/04/2024 until 11/03/2025 Cystourethroscopy CYSTO.PANENDO Procedures Routine Gross hematuria Ordered: 10/01/2024 [facility] Comment on above: Ordered: 10/01/2024 CYTOLOGY NON-GLUING MACHINE FEEDER [place] [facility] Comment on above: Ordered: 06/18/2024 End: 02-09-2021 Intermittent pulse oximetry Pulse Oximetry Spot Check Respiratory Care Routine One Time for 1 Occurrences starting 02/09/2021 until 02/09/2021 [facility] Work Phone: Comment on above: One Time for 1 Occurrences starting 01/18 until 02/09/2021 Nasal Cannula Oxygen Nasal Cannu la Oxygen Respiratory Care Routine As Needed until discontinued starting 02/09/2021 [facility] Work Phone: Comment on above: As Needed until discontinued starting Nonrebreather mask oxygen Nonreb reather mask oxygen Respiratory Care Routine As Needed until discontinued starting 02/09/2021 [facility] Work Phone: Comment on above: As Needed until discontinued starting Oxygen therapy [Mini [facility] Data Set] [facility] Work Phone: Comment on above: Daily until discontinued starting 2020 As Needed until disc ontinued starting 02/09/2021 Patient Education ED Eye Contusi on ED Head Injury (Adult) ED Skin Tear (Skin Avulsion) [facility] Work Phone: Patient referral [facility] Work Phone: POST VOID RESIDUAL POST VOID RES IDUAL Procedures Routine Gross hematuria Screening for genitourinary condition Ordered: 10/01/2024 [facility] Work Phone: Comment on above: Ordered: 10/01/2024 End: 02-09-2021 Potassium w/ Reflex to Magnesium Potassium w/ Reflex to Magnesium Lab Routine One Time for 1 Occurrences starting 02/09/2021 until 02/09/2021 [facility] Work Phone: Comment on above: One Time for 1 Occurrences starting 01/18 until 02/09/2021 End: 02-09-2021 , urine POCT , urine POCT Point of Care Testing Routine One Time for 1 Occurrences starting 02/09/2021 until 02/09/2021 [facility] Work Phone: Comment on above: One Time for 1 Occurrences starting 01/18 until 02/09/2021 End: 02-09-2021 Protime-INR Protime-INR Lab STAT One Time for 1 Occurrences starting 02/09/2021 until 02/09/2021 [facility] Work Phone: Comment on above: One Time for 1 Occurrences starting 01/18 until 02/09/2021 Spirometry panel Incentive arthur metry Respiratory Care Routine Q1H PRN until discontinued starting 02/09/2021 [facility] Work Phone: Comment on above: Q1H PRN until discontinued starting 01/18 UA DIP, URINE (POC) UA DIP, URIN E (POC) Lab Routine Screening for genitourinary condition Ordered: 06/18/2024 [facility] Work Phone: Comment on above: Ordered: 06/18/2024 Immunizations Immunization Date Immunization Notes Care Provider Chan michelle 10-15-2024 tetanus toxoid, reduced diphtheria toxoid, and acellular pertussis vaccine, adsorbed Dr. Diana Salmeron MD Work Phone: [facility] 03-19-2022 influenza virus vaccine, unspecified formulation Urology (History) [facility] 10-25-2021 Covid (Pfizer) Dr. Dexter Reyes Work Phone: [facility] 05-21-2021 influenza virus vaccine, unspecified formulation DR KARL BARRERA MD [facility] 05-21-2021 SARS-CoV-2 (COVID-19 ) mRNA-[address] KARL BARRERA MD [facility] 03-10-2021 influenza virus vaccine, unspecified formulation DR KARL BARRERA MD [facility] 10-13-2020 SARS-CoV-2 (COVID-19 ) mRNA-[address] KARL BARRERA MD [facility] Comment on above: Result Comment: 2021: TPV3 09-15-2020 SARS-CoV-2 (COVID-19 ) mRNA-[address] KARL BARRERA MD [facility] Comment on above: Result Comment: 2021: TPV3 03-22-2020 influenza virus vaccine, unspecified formulation DR KARL BARRERA MD [facility] 02-18-2020 influenza virus vaccine, unspecified formulation DR KARL BARRERA MD [facility] 03-18-2019 influenza, injectabl e, quadrivalent, preservative free Dr. Diana Salmeron MD Work Phone: [facility] 03-18-2019 influenza, seasonal, injectable Dr. Dexter Reyes Work Phone: [facility] 03-04-2019 influenza virus vaccine, unspecified formulation DR KARL BARRERA MD [facility] 02-22-2017 influenza virus vaccine, unspecified formulation DR KARL BARRERA MD [facility] Payers Date Payer Category Payer Medicare (Managed Care) [employer] [facility] [employer] MEDIC[employer] [id number] 2024 Self-pay [id number] 2020 Medicare [id number] 2019 Private Health Insurance [id number]. [id number] 2019 Medicaid [id number]. [id number] 2019 Medicaid [id number] 2015 Medicare [facility] [id number] 2006 Medicare [id number]. [id number] 2006 Medicare [id number] 1941 Unknown [id number] 2.16.840.1.582829.3.579.2. 594 1941 Unknown [id number] 2.16.840.1.395262.3.579.2. 594 1941 Unknown [id number] 2.16.840.1.366035.3.579.2. 594 1941 Unknown [id number] 2.16.840.1.327572.3.579.2. 627 1941 Unknown [id number] 2.16.840.1.417673.3.579.2. 651 Medicare [id number] Unknown [id number] 2.16.840.1.268874.3.579.2. 462 Unknown [id number] 2.16.840.1.766805.3.579.2. 462 Unknown [id number] 2.16.840.1.690971.3.579.2. 462 Unknown [id number] 2.16.840.1.473302.3.579.2. 462 Unknown [id number] 2.16.840.1.938261.3.579.2. 462 Unknown [id number] 2.16.840.1.140099.3.579.2. 462 Unknown [id number] 2.16.840.1.075983.3.579.2. 462 Unknown [id number] 2.16.840.1.280702.3.579.2. 462 Unknown [id number] 2.16.840.1.348137.3.579.2. 462 Unknown [id number] 2.16.840.1.162621.3.579.2. 462 Unknown [id number] 2.16.840.1.449027.3.579.2. 462 Unknown [id number] 2.16.840.1.391062.3.579.2. 462 Unknown [id number] 2.16.840.1.165801.3.579.2. 462 Unknown [id number] 2.16.840.1.968224.3.579.2. 462 Unknown [id number] 2.16.840.1.059646.3.579.2. 462 Unknown [id number] 2.16.840.1.733871.3.579.2. 462 Unknown [id number] 2.16.840.1.331060.3.579.2. 462 Unknown [id number] 2.16.840.1.730871.3.579.2. 462 Unknown [id number] 2.16.840.1.345129.3.579.2. 462 Unknown [id number] 2.16.840.1.026275.3.579.2. 462 Unknown [id number] 2.16.840.1.991989.3.579.2. 462 Unknown [id number] 2.16840.1.284811.3.579.2. 462 Unknown [id number] 2.16840.1.352843.3.579.2. 462 Unknown [id number] 2.16840.1.211758.3.579.2. 462 Unknown [id number] 2.16840.1.445105.3.579.2. 462 Unknown [id number] 2.16.840.1.764799.3.579.2. 462 Unknown [id number] 2.16840.1.513007.3.579.2. 462 Unknown [id number] 2.16840.1.571556.3.579.2. 462 Unknown [id number] 2.16.840.1.042432.3.579.2. 462 Unknown [id number] 2.16.840.1.308792.3.579.2. 462 Unknown [id number] 2.16.840.1.192687.3.579.2. 462 Unknown [id number] 2.16.840.1.890560.3.579.2. 462 Unknown [id number] 2.16840.1.348788.3.579.2. 462 Unknown [id number] 2.16.840.1.729683.3.579.2. 462 Unknown [id number] 2.16.840.1.483277.3.579.2. 462 Unknown [id number] 2.16.840.1.288620.3.579.2. 462 Unknown [id number] 2.16.840.1.760362.3.579.2. 462 Unknown [id number] 2.16.840.1.376219.3.579.2. 462 Social History Date Type Detail Facility Start: 02-09-2021 End: 06-18-2024 Tobacco smoking status NCIS Former smoker [facility] Start: 02-09-2021 End: 01-14-2025 Alcohol intake Current drinker of alcohol (finding) [facility] Work Phone: Start: 02-02-2021 Alcohol Comment occassional ETOH use, not on a daily basis [facility] Work Phone: Start: 1940 Sex Assigned At Not on file [facility] Work Phone: Exposure to SARS-CoV -2 (event) Not sure [facility] Start: 12-14-2022 Tobacco smoking status [facility] Tobacco smoking consumption unknown [facility] Start: 05-15-2020 History SDOH Alcohol Frequency 2 [facility] Start: 05-15-2020 History SDOH Alcohol Std Drinks 1 [facility] Start: 12-10-2019 History SDOH Financial 4 [facility] Start: 1940 Sex Assigned At Male [facility] Start: 01-08-1960 End: 01-07-1990 History of tobacco use Current smoker [facility] Work Phone: Start: 01-08-1960 End: 01-07-1990 History of tobacco use Cigarette Smoker [facility] Work Phone: Start: 05-15-2020 End: 05-05-2023 Cigarettes smoked current (pack per day) - Reported 1 [facility] Work Phone: Start: 05-15-2020 End: 06-18-2024 Tobacco use and exposure Smokeless tobacco non-user [facility] Work Phone: Start: 09-05-2019 End: 05-05-2023 Tobacco Comment STOPPED 28 YEARS AGO [facility] Start: 09-05-2019 Alcohol Comment OCCASIONAL [facility] Start: 09-12-2019 Heavy [facility] Start: 09-12-2019 None [facility] Start: 11-23-2019 - [facility] Start: 12-18-2019 Non-smoker [facility] Start: 05-15-2020 End: 05-05-2023 Alcohol Use Disorder Identification Test - Consumption [AUDIT-C] [facility] Work Phone: How often to you hav e a drink containing alcohol? Monthly or less [facility] Work Phone: How many standard dr inks containing alcohol do you have on a typical day? 1 or 2 [facility] Work Phone: Frequency of Binge Drinking Not on file [facility] How hard is it for y ou to pay for the very basics like food, housing, medical care, and heating Not very hard [facility] (I/We) worried monae tse (my/our) food would run out before (I/we) got money to buy more. DK or Refused [facility] Start: 09-20-2024 End: 10-16-2024 Sex Male (finding) [facility] Medical Equipment Procedure Code Equipment Code Equipment Origin al Text Equipment Identifier Dates ERCP (endoscopic retrograde cholangiopancreatog lalit) ([id number]) Polymeric biliary stent, non-bioabsorbable [id number] [facility] Start: 12-15-2022 Patch Xenosure Bovine Pericardial Tissue 8x.8cm Vascular Sterile - [id number] Start: 09-02-2019 Goals Date Patient Goal Desired Activity /State Functional Status Date Assessment Result Facility 12-17-2022 Functional status Bedrest [facility] Work Phone: 12-16-2022 Functional status Tolerates Activity Fair [facility] Work Phone: 01-13-2022 Functional Status Room check performed [facility] 01-13-2022 Functional Status [facility] 01-13-2022 Functional Status [facility] 01-13-2022 [facility] Functional Status [facility] 01-12-2022 Functional Status [facility] 01-12-2022 Functional Status [facility] Functional Status 50 [facility]zad Saez [facility] 01-12-2022 Functional Status [facility] Sae[facility] 01-12-2022 Functional Status Bed Bath Refused [place] 01-12-2022 Functional Status bilateral knee high [facility] 01-12-2022 Functional Status padded oxygen tubing [facility] 01-11-2022 Functional Status Linen Change Done [facility] 01-11-2022 Functional Status [facility]zad Saez [facility] 01-11-2022 Functional Status [facility]ad Saez [facility] 01-10-2022 Functional Status [facility]ad Saez [facility] 01-10-2022 Functional Status [facility]ad Saez [facility] 01-10-2022 Functional Status Shampoo/Body w abdirashid (no rinse), CHG bath [facility] 01-10-2022 Functional Status [facility]zad Saez [facility] 01-09-2022 Functional Status [facility]ad Saez [facility] 01-09-2022 Functional Status Farzad Saez [facility] 01-08-2022 Functional Status Farzad Saez [facility] 01-07-2022 Functional Status Transfer Bed t o/from Chair Total 2 [facility] 01-07-2022 Functional Status Supervised 3 [facility] 01-07-2022 Functional Status Hair Care Maximum paola tance [facility] 01-07-2022 Functional Status Fluid Restriction Maint ained [facility] 01-06-2022 Functional Status [facility] 01-05-2022 Functional Status Special Call D evice Unable to use call device [facility] 01-05-2022 Functional Status Farzad Saez [facility] 01-05-2022 Functional Status Farzad Saez [facility] 01-05-2022 Functional Status Patient Identi fied Identification band, Verbal [facility] 01-04-2022 Functional Status Skin Care Done [facility] 01-03-2022 [facility] 12-30-2021 Functional Status Living Situati on Halfway Unit [facility] 12-30-2021 Functional Status Sensory Defici ts Blind, left eye, Blind, right eye [facility] 12-11-2019 Are you deaf, or do you have serious difficulty hearing No 12/11/2019 4:18 PM Josefa Graves, KAVIN No [facility] 12-11-2019 Are you blind, or do you have serious difficulty seeing, even when wearing glasses No 12/11/2019 4:18 PM Josefa Graves, KAVIN No [facility] 12-11-2019 Do you have serious difficulty walking or climbing stairs Yes 12/11/2019 4:18 PM Josefa Graves, KAVIN Yes [facility] 12-11-2019 Do you have difficul ty dressing or bathing No 12/11/2019 4:18 PM Josefa Graves, KAVIN No [facility] 12-11-2019 Because of a physica l, mental, or emotional condition, do you have difficulty doing errands alone such as visiting a physician's office or shopping Yes 12/11/2019 4:18 PM Josefa Graves, KAVIN Yes [facility] Mental Status Date Assessment Result Facility 12-17-2022 Cognitive function Voice/Name [facility] Work Phone: 01-13-2022 Mental Status Orientation Oriented x 4 [facility] 01-13-2022 Mental Status [facility] 01-12-2022 Mental Status [facility] 01-12-2022 Mental Status [facility] 01-11-2022 Mental Status [facility] 12-11-2019 Because of a physica l, mental, or emotional condition, do you have serious difficulty concentrating, remembering, or making decisions No 12/11/2019 4:18 PM Josefa Graves RN No [facility] Clinical Notes 02-09-2021 to 01-14-2025 Gayla Cline MD - 01/14/2025 10:45 AM Gayla Banuelos MD - 01/14/2025 10:44 AM Gayla Banuelos MD - 01/14/2025 10:44 AM EDT Note Date & Type Note Facility 01-14-2025 Note HNO ID: [id number] Author: GAYLA CLINE MD Service: ? Author Type: Physician Type: Progress Notes Filed: 01/14/2025 10:48 Note Text: ESTABLISHED PATIENT OFFICE VISIT The patient is here for follow-up of gross hematuria. He has a known left renal mass which has been unchanged. His last CT scan was in September 2024. Earlier this visit I performed a cystoscopy. This showed no lesions. LAB RESULTS Creatinine Date Value Ref Range Status 06/18/2024 1.37 (H) 0.73 - 1.22 mg/dL Final No results found for: "PSA", PSASC GLUCOSE UA (POCT) (mg/dL) Date Value 06/18/2024 >=1000 (A) BILIRUBIN UA (POCT) (no units) Date Value 06/18/2024 Small (A) KETONE UA (POCT) (mg/dL) Date Value 06/18/2024 Negative SPECIFIC GRAVITY UA (POCT) (no units) Date Value 06/18/2024 1.020 HEMOGLOBIN/BLOOD UA (POCT) (no units) Date Value 06/18/2024 Large (A) PH UA (POCT) (no units) Date Value 06/18/2024 7.0 PROTEIN UA (POCT) (mg/dL) Date Value 06/18/2024 >=300 (A) UROBILINOGEN UA (POCT) (E.U./dL) Date Value 06/18/2024 1.0 NITRITE UA (POCT) (no units) Date Value 06/18/2024 Negative LEUKOCYTES UA (POCT) (no units) Date Value 06/18/2024 Negative COLOR UA (POCT) (no units) Date Value 06/18/2024 Red CLARITY UA (POCT) (no units) Date Value 06/18/2024 Slightly Cloudy ] ALLERGIES No Known Allergies MEDICATIONS: TRULICITY 3 mg/0.5 mL pen injector 3 mg. potassium chloride 20 mEq TbER Take 20 mEq by mouth once daily. glipiZIDE (GLUCOTROL XL) 2.5 mg 24 hr tablet 10 mg. apixaban (ELIQUIS) 2.5 mg tab(s) 2.5 mg once daily. acetaminophen (TYLENOL) 325 mg tablet Take 650 mg by mouth. carvedilol (COREG) 3.125 mg tablet carvedilol 3.125 mg tablet 1 tab po BID empagliflozin (JARDIANCE) 25 mg tablet Take 25 mg by mouth once daily. sacubitril-valsartan (ENTRESTO) 24-26 mg tablet Entresto 24 mg-26 mg tablet 1 tab po BID polyethylene glycol 3350 17 gram packet Take 17 g by mouth once daily. Dissolve dose in 4 - 8 ounces of liquid and take as directed. atorvastatin (LIPITOR) 40 mg tablet Take 20 mg by mouth once daily. (Patient taking differently: Take 40 mg by mouth once daily.) levothyroxine (SYNTHROID) 25 mcg tablet Take 50 mcg by mouth once daily. (Patient taking differently: Take 75 mcg by mouth once daily.) iv contrast (will be provided with radiology test) CT Urogram WO/W Inject, intravenously, once for 1 dose.No IV access, insert saline lock prior to the beginning of sedation, infusion, injection of imaging exam. Discontinue saline lock post exam. If Pt. has a central line or IVAD, may access for administration according to line specific nursing protocol. Once exam is complete flush line and de-access according to line specific nursing protocol in the CT contrast administration guidelines link. (Patient not taking: Reported on 01/14/2025) iv contrast (will be provided with radiology test) CT Urogram WO/W Inject, intravenously, once for 1 dose.No IV access, insert saline lock prior to the beginning of sedation, infusion, injection of imaging exam. Discontinue saline lock post exam. If Pt. has a central line or IVAD, may access for administration according to line specific nursing protocol. Once exam is complete flush line and de-access according to line specific nursing protocol in the CT contrast administration guidelines link. (Patient not taking: Reported on 01/14/2025) keTORolac (ACULAR) 0.5 % ophthalmic solution (Patient not taking: Reported on 01/14/2025) mupirocin (BACTROBAN) 2 % ointment (Patient not taking: Reported on 01/14/2025) pantoprazole DR (PROTONIX) 40 mg tablet (Patient not taking: Reported on 01/14/2025) aspirin 81 mg chewable tablet Take 81 mg by mouth. (Patient not taking: Reported on 01/14/2025) amiodarone (PACERONE) 200 mg tablet 200 mg once daily. insulin aspart U-100 (NOVOLOG) 100 unit/mL Novolog U-100 Insulin aspart 100 unit/mL subcutaneous solution sliding scale (Patient not taking: Reported on 01/14/2025) NOVOLOG U-100 INSULIN ASPART 100 unit/mL (Patient not taking: Reported on 01/14/2025) multivit-min/iron/folic acid/K (ADULTS MULTIVITAMIN ORAL) Take by mouth. (Patient not taking: Reported on 01/14/2025) vit C,F-Rc-mxxmi-lutein-zeaxan (PRESERVISION AREDS-2) 250-90-40-1 mg Take 1 Each by mouth. (Patient not taking: Reported on 01/14/2025) insulin lispro (HUMALOG) 100 unit/mL injection Inject subcutaneously before meals and at bedtime. SSI- if BS- 201-250= 3 units If BS- 251-300= 6 units If BS- 301-350= 9 units If BS- 351-400= 12 units Call MD for BS <70>400 (Patient not taking: Reported on 01/14/2025) isosorbide mononitrate ER (IMDUR) 30 mg 24 hr tablet Take 30 mg by mouth once daily. (Patient not taking: Reported on 01/14/2025) predniSONE (DELTASONE) 1 mg tablet Take 1 mg by mouth once daily. (Patient not taking: Reported on 01/14/2025) citalopram hydrobromide (CELEXA) 10 mg tablet Take 10 mg by mouth once daily. (Patient n (more content not included)... [facility] 01-14-2025 History of Presen t illness Narrative ESTABLISHED PATIENT OFFICE VISIT The patient is here for follow-up of gross hematuria. He has a known left renal mass which has been unchanged. His last CT scan was in September 2024. Earlier this visit I performed a cystoscopy. This showed no lesions. LAB RESULTS Creatinine Date Value Ref Range Status 06/18/2024 1.37 (H) 0.73 - 1.22 mg/dL Final No results found for: "PSA", PSASC GLUCOSE UA (POCT) (mg/dL) Date Value 06/18/2024 >=1000 (A) BILIRUBIN UA (POCT) (no units) Date Value 06/18/2024 Small (A) KETONE UA (POCT) (mg/dL) Date Value 06/18/2024 Negative SPECIFIC GRAVITY UA (POCT) (no units) Date Value 06/18/2024 1.020 HEMOGLOBIN/BLOOD UA (POCT) (no units) Date Value 06/18/2024 Large (A) PH UA (POCT) (no units) Date Value 06/18/2024 7.0 PROTEIN UA (POCT) (mg/dL) Date Value 06/18/2024 >=300 (A) UROBILINOGEN UA (POCT) (E.U./dL) Date Value 06/18/2024 1.0 NITRITE UA (POCT) (no units) Date Value 06/18/2024 Negative LEUKOCYTES UA (POCT) (no units) Date Value 06/18/2024 Negative COLOR UA (POCT) (no units) Date Value 06/18/2024 Red CLARITY UA (POCT) (no units) Date Value 06/18/2024 Slightly Cloudy ] ALLERGIES No Known Allergies MEDICATIONS: TRULICITY 3 mg/0.5 mL pen injector 3 mg. potassium chloride 20 mEq TbER Take 20 mEq by mouth once daily. glipiZIDE (GLUCOTROL XL) 2.5 mg 24 hr tablet 10 mg. apixaban (ELIQUIS) 2.5 mg tab(s) 2.5 mg once daily. acetaminophen (TYLENOL) 325 mg tablet Take 650 mg by mouth. carvedilol (COREG) 3.125 mg tablet carvedilol 3.125 mg tablet 1 tab po BID empagliflozin (JARDIANCE) 25 mg tablet Take 25 mg by mouth once daily. sacubitril-valsartan (ENTRESTO) 24-26 mg tablet Entresto 24 mg-26 mg tablet 1 tab po BID polyethylene glycol 3350 17 gram packet Take 17 g by mouth once daily. Dissolve dose in 4 - 8 ounces of liquid and take as directed. atorvastatin (LIPITOR) 40 mg tablet Take 20 mg by mouth once daily. (Patient taking differently: Take 40 mg by mouth once daily.) levothyroxine (SYNTHROID) 25 mcg tablet Take 50 mcg by mouth once daily. (Patient taking differently: Take 75 mcg by mouth once daily.) iv contrast (will be provided with radiology test) CT Urogram WO/W Inject, intravenously, once for 1 dose.No IV access, insert saline lock prior to the beginning of sedation, infusion, injection of imaging exam. Discontinue saline lock post exam. If Pt. has a central line or IVAD, may access for administration according to line specific nursing protocol. Once exam is complete flush line and de-access according to line specific nursing protocol in the CT contrast administration guidelines link. (Patient not taking: Reported on 01/14/2025) iv contrast (will be provided with radiology test) CT Urogram WO/W Inject, intravenously, once for 1 dose.No IV access, insert saline lock prior to the beginning of sedation, infusion, injection of imaging exam. Discontinue saline lock post exam. If Pt. has a central line or IVAD, may access for administration according to line specific nursing protocol. Once exam is complete flush line and de-access according to line specific nursing protocol in the CT contrast administration guidelines link. (Patient not taking: Reported on 01/14/2025) keTORolac (ACULAR) 0.5 % ophthalmic solution (Patient not taking: Reported on 01/14/2025) mupirocin (BACTROBAN) 2 % ointment (Patient not taking: Reported on 01/14/2025) pantoprazole DR (PROTONIX) 40 mg tablet (Patient not taking: Reported on 01/14/2025) aspirin 81 mg chewable tablet Take 81 mg by mouth. (Patient not taking: Reported on 01/14/2025) amiodarone (PACERONE) 200 mg tablet 200 mg once daily. insulin aspart U-100 (NOVOLOG) 100 unit/mL Novolog U-100 Insulin aspart 100 unit/mL subcutaneous solution sliding scale (Patient not taking: Reported on 01/14/2025) NOVOLOG U-100 INSULIN ASPART 100 unit/mL (Patient not taking: Reported on 01/14/2025) multivit-min/iron/folic acid/K (ADULTS MULTIVITAMIN ORAL) Take by mouth. (Patient not taking: Reported on 01/14/2025) vit C,P-Ef-daviy-lutein-zeaxan (PRESERVISION AREDS-2) 250-90-40-1 mg Take 1 Each by mouth. (Patient not taking: Reported on 01/14/2025) insulin lispro (HUMALOG) 100 unit/mL injection Inject subcutaneously before meals and at bedtime. SSI- if BS- 201-250= 3 units If BS- 251-300= 6 units If BS- 301-350= 9 units If BS- 351-400= 12 units Call MD for BS <70>400 (Patient not taking: Reported on 01/14/2025) isosorbide mononitrate ER (IMDUR) 30 mg 24 hr tablet Take 30 mg by mouth once daily. (Patient not taking: Reported on 01/14/2025) predniSONE (DELTASONE) 1 mg tablet Take 1 mg by mouth once daily. (Patient not taking: Reported on 01/14/2025) citalopram hydrobromide (CELEXA) 10 mg tablet Take 10 mg by mouth once daily. (Patient not taking: Reported on 01/14/2025) TOUJEO MAX U-300 SOLOSTAR 300 unit/mL (3 mL) inpn Inject 70 Units subcutaneously daily at bedtime. (Patient not taking: Reported on 01/14/2025) insulin lispro (HUMALOG KWIKPEN INSULIN) 100 unit/mL Inject 32 Units subcutaneously two times a day. (Patient not taking: Reported on 01/14/2025) metoprolol succinate ER (TOPROL XL) 25 mg 24 hr tablet Take 50 mg by mouth once daily. (Patient not taking: Reported on 01/14/2025) lisinopril (ZESTRIL, PRINIVIL) 10 mg tablet Take 10 mg by mouth once daily. (Patient not taking: Reported on 01/14/2025) REVIEW OF SYSTEMS GENERAL:no unintentional weight loss, malaise or fevers. NEUROLOGIC: pt is alert and oriented GASTROINTESTINAL: No nausea, vomiting, or diarrhea GENITOURINARY: No history of dysuria, frequency or incontinence MUSCULOSKELETAL: Negative for joint pain or swelling, back pain or muscle pain SKIN: Negative for lesions, rash, and itching. ACTIVE PROBLEM LIST Gangrene of Foot (Hcc) Diabetes (Hcc) Htn (Hypertension) Dyslipidemia Hypothyroidism Malnutrition of Moderate Degree (Hcc) Pvd (Peripheral Vascular Disease) Below Knee Amputation (Hcc) Nonhealing Surgical Wound Left Renal Mass HISTORIES PAST MEDICAL HISTORY Diagnosis Date Anxiety and depression Chronic a-fib (HCC) Chronic kidney disease no dialysis. Dr. Montgomery in [place] Congestive heart failure (HCC) Diabetes mellitus (HCC) DM (diabetes mellitus) (HCC) PCP follows Dyslipidemia Heart attack (HCC) HTN (hypertension) Hypercholesterolemia Hypothyroidism Left renal mass PVD (peripheral vascular disease) Renal mass PAST SURGICAL HISTORY Procedure Laterality Date ANES RADICAL RESECJ INCL BELOW KNEE AMPUTATION Bilateral 2020 ELBOW SURGERY HX Right 60'S PAST SURGICAL HISTORY OF Right 09/05/2019 Revision Rt BKA PAST SURGICAL HISTORY OF 1962 TEETH PULLED REMV CATARACT EXTRACAP,INSERT LENS Right TONSILLECTOMY HX A CHILD VASCULAR SURGERY PROCEDURE Right 12/09/2019 Irrigation and debridement of right lower extremity wound with placement of wound VAC. FAMILY HISTORY Problem Relation Age of Onset Diabetes Father Heart Attack Father Diabetes Brother SOCIAL HISTORY Social History Tobacco Use Smoking status: Former Current packs/day: 0.00 Average packs/day: 1 pack/day for 30.0 years (30.0 ttl pk-yrs) Types: Cigarettes Start date: 01/08/1960 Quit date: 01/07/1990 Years since quittin.0 Smokeless tobacco: Never Tobacco comments: STOPPED 28 YEARS AGO Vaping Use Vaping status: Never Used Substance Use Topics Alcohol use: Yes Comment: OCCASIONAL Drug use: Never PHYSICAL EXAMINATION General appearance: Well appearing, alert, in no acute distress, well-hydrated, well nourished Psych Alert and oriented to person, place and time Cardiac: no peripheral edema Pulmonary: normal respiratory effort Genitourinary: MALE EXAM: Exam NOT Indicated ASSESSMENT/PLAN: 1. Gross hematuria - ICD9: 599.71, ICD10: R31.0 (primary diagnosis) CT scan and cystoscopy did not show source for the hematuria. He does have the left renal mass, but I do not believe that this is related to the hematuria. It does not involve the collecting system. - LIDOCAINE 2 % MUCOSAL JELLY IN APPLICATOR 2. Left renal mass - ICD9: 593.9, ICD10: N28.89 The renal mass is unchanged over the past 5 years of following. I recommend annual renal ultrasound. Gayla Cline MD documented in this encounter [facility] 01-14-2025 Note HNO ID: [id number] Author: GAYLA CLINE MD Service: ? Author Type: Physician Type: Procedures Filed: 01/14/2025 10:48 Note Text: CYSTOSCOPY PROCEDURE NOTE : Elizabeth Modi is a 84 year old male who is here for cystoscopy PRE-OP/PRE-PROCEDURE DIAGNOSIS: h/o gross henaturia POST-OP/POST-PROCEDURE DIAGNOSIS: same SURGERY/PROCEDURE(S): Cystoscopy Pt ID verified with patient: Yes Procedure verified with patient: Yes Procedure confirmed with physician and microcomputer support specialist: Yes UNIVERSAL PROTOCOL / SAFETY CHECKLIST Procedure to be Performed: cystoscopy Sign In: A Moment of CARE was completed. Appropriate PPE (Personal Protective Equipment) worn by all providers involved with the procedure. Special equipment not required. Patient/Surrogate Stated/Verified: Patient name, Date of , Relevant allergies, and The intended procedure Time Out: Relevant labs, photos, and/or imaging studies have been reviewed. Intended patient and procedure match the source document(s) (e.g. consent, HANDP, associated studies [imaging, pathology]) match the intended patient and procedure. Consent obtained and matches the intended procedure. Yes. Correct side/site is not applicable. Medications required for this procedure are verified. Fire risk assessed and is not applicable. Implants: are not applicable. Sign Out: Specimens not collected. All instruments, equipment, possible retained foreign bodies are accounted for. Yes. The post-procedure plan of care has been communicated to the patient or surrogate. The benefits, risks, alternatives of the cystoscopy procedure and personnel were discussed with the patient. The verbal consent was obtained and the patient agrees to proceed. Procedure: The patient was positioned supine and prepped with Betadine. Lidocaine jelly was instilled into his urethra. I used a flexible cystoscope to perform the procedure. There was no urethral stricture. The lateral lobes of the prostate were coapting. The ureteral orifices were orthotopic. There were no bladder lesions or stones. IMPRESSION: Gross hematuria- no pathology PLAN: observe Electronically Signed: Gayla Cline MD January 14, 2025 10:44 AM This note was partially created using voice recognition software and is inherently subject to errors including those of syntax and sound-alike substitutions which may escape proofreading. In such instances, original meaning may be extrapolated by contextual derivation. [facility] 01-14-2025 Procedure note CYSTOSCOPY PROCEDURE NOTE : Elizabeth Modi is a 84 year old male who is here for cystoscopy PRE-OP/PRE-PROCEDURE DIAGNOSIS: h/o gross henaturia POST-OP/POST-PROCEDURE DIAGNOSIS: same SURGERY/PROCEDURE(S): Cystoscopy Pt ID verified with patient: Yes Procedure verified with patient: Yes Procedure confirmed with physician and microcomputer support specialist: Yes UNIVERSAL PROTOCOL / SAFETY CHECKLIST Procedure to be Performed: cystoscopy Sign In: A Moment of CARE was completed. Appropriate PPE (Personal Protective Equipment) worn by all providers involved with the procedure. Special equipment not required. Patient/Surrogate Stated/Verified: Patient name, Date of , Relevant allergies, and The intended procedure Time Out: Relevant labs, photos, and/or imaging studies have been reviewed. Intended patient and procedure match the source document(s) (e.g. consent, H&P, associated studies [imaging, pathology]) match the intended patient and procedure. Consent obtained and matches the intended procedure. Yes. Correct side/site is not applicable. Medications required for this procedure are verified. Fire risk assessed and is not applicable. Implants: are not applicable. Sign Out: Specimens not collected. All instruments, equipment, possible retained foreign bodies are accounted for. Yes. The post-procedure plan of care has been communicated to the patient or surrogate. The benefits, risks, alternatives of the cystoscopy procedure and personnel were discussed with the patient. The verbal consent was obtained and the patient agrees to proceed. Procedure: The patient was positioned supine and prepped with Betadine. Lidocaine jelly was instilled into his urethra. I used a flexible cystoscope to perform the procedure. There was no urethral stricture. The lateral lobes of the prostate were coapting. The ureteral orifices were orthotopic. There were no bladder lesions or stones. IMPRESSION: Gross hematuria- no pathology PLAN: observe Electronically Signed: Gayla Cline MD January 14, 2025 10:44 AM This note was partially created using voice recognition software and is inherently subject to errors including those of syntax and "sound-alike" substitutions which may escape proofreading. In such instances, original meaning may be extrapolated by contextual derivation. [facility] 01-14-2025 Procedure note CYSTOSCOPY PROCEDURE NOTE : Elizabeth Modi is a 84 year old male who is here for cystoscopy PRE-OP/PRE-PROCEDURE DIAGNOSIS: h/o gross henaturia POST-OP/POST-PROCEDURE DIAGNOSIS: same SURGERY/PROCEDURE(S): Cystoscopy Pt ID verified with patient: Yes Procedure verified with patient: Yes Procedure confirmed with physician and microcomputer support specialist: Yes UNIVERSAL PROTOCOL / SAFETY CHECKLIST Procedure to be Performed: cystoscopy Sign In: A Moment of CARE was completed. Appropriate PPE (Personal Protective Equipment) worn by all providers involved with the procedure. Special equipment not required. Patient/Surrogate Stated/Verified: Patient name, Date of , Relevant allergies, and The intended procedure Time Out: Relevant labs, photos, and/or imaging studies have been reviewed. Intended patient and procedure match the source document(s) (e.g. consent, H&P, associated studies [imaging, pathology]) match the intended patient and procedure. Consent obtained and matches the intended procedure. Yes. Correct side/site is not applicable. Medications required for this procedure are verified. Fire risk assessed and is not applicable. Implants: are not applicable. Sign Out: Specimens not collected. All instruments, equipment, possible retained foreign bodies are accounted for. Yes. The post-procedure plan of care has been communicated to the patient or surrogate. The benefits, risks, alternatives of the cystoscopy procedure and personnel were discussed with the patient. The verbal consent was obtained and the patient agrees to proceed. Procedure: The patient was positioned supine and prepped with Betadine. Lidocaine jelly was instilled into his urethra. I used a flexible cystoscope to perform the procedure. There was no urethral stricture. The lateral lobes of the prostate were coapting. The ureteral orifices were orthotopic. There were no bladder lesions or stones. IMPRESSION: Gross hematuria- no pathology PLAN: observe Electronically Signed: Gayla Cline MD January 14, 2025 10:44 AM This note was partially created using voice recognition software and is inherently subject to errors including those of syntax and "sound-alike" substitutions which may escape proofreading. In such instances, original meaning may be extrapolated by contextual derivation. documented in this encounter [facility] 10-16-2024 Evaluation note Diagnosis Onset Date Resolution Atherosclerotic heart disease of [place] coronary artery without angina pectoris chronic October 16, 2024 7:59am Essential hypertension chronic Ap 2024 7:59am Hyperlipidemia chronic September 7:59am Paroxysmal atrial fibrillation chronic October 16, 2024 7:59am [facility] Work Phone: [phone] Discharge summary [facility] Medical Records Department [address] [place] [address] Emergency Department Summary 10/15/24 MR#: [id number] Acct: [id number] Name: ELIZABETH MODI Rep #:[id number] : 1940 84 From: Jesse Griffith PCP: Dr. Diana Salmeron MD Status:REG ER Location: ED HPI HPI - Fall History of Present Illness Chief Complaint: Fall Occured/Mechanism Occurred: Today Narrative: Fell out of his motorized chair Pain/Injury Location: Left hand, left elbow, bilateral knees, left periorbital area Pain Location: face, upper extremity and lower extremity Quality of Pain: - (Cramping) Worsened by: Nothing Relieved by: Nothing Narrative Narrative: Patient presents after a fall out of his motorized chair today. Patient states he was in his chair going down the sidewalk when the sidewalk was uneven. Patient did not see this and hit the uneven sidewalk. Patient states that this caused him to fall forward out of his motorized chair. Patient hit the left side of his head. Patient also complains of pain in his left elbow. Patient also admits to abrasions everywhere both lower extremities and his left hand. Patient denies any loss of consciousness. Patient denies any paresthesias or weakness. Patient is unsure of his last tetanus. Tetanus Immunization: Unknown [facility] Medical History History of echocardiogram History of stress test Cardiology follow-up encounter Sleep apnea Loss of hearing CAD (coronary artery disease) High cholesterol History of heart attack Renal mass, left Thyroid disease History of atrial fibrillation Hypertension History of CHF (congestive heart failure) Wears glasses Wears dentures Insulin dependent diabetes mellitus History of renal disease Non-smoker COPD (chronic obstructive pulmonary disease) Obesity Atherosclerotic heart disease of [place] coronary artery without angina pectoris Paroxysmal atrial fibrillation 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 Essential hypertension Tinea unguium Vitamin D deficiency Edentulous Tobacco dependence in remission Hypothyroidism Diabetes mellitus type 2, uncontrolled Home Medications ?Medication ?Instructions ?Recorded ?Last Taken ?Type levothyroxine 50 mcg tablet 50 mcg PO DAILY 09/01/21 1 08/07/22 History apixaban 2.5 mg tablet (Eliquis) 2.5 mg PO DAILY 03/0306/03/23 History atorvastatin 40 mg tablet 40 mg PO DAILY 03/03/2205/19 History carvedilol 3.125 mg tablet (Coreg) 3.125 mg PO BID 06/06/23 History acetaminophen 325 mg capsule 650 mg PO Q4H PRN pain Unknown History empagliflozin 10 mg tablet 25 mg PO DAILY 12/14/22 History (Jardiance) multivitamin 1 tab PO DAILY 12/14/22 Unkn own History polyethylene glycol 3350 17 17 g PO DAILY PRN constipa tion 12/14/22 Unknown History gram/dose oral powder (Miralax) glipizide 2.5 mg tablet, extended 5 mg PO DAILY 06/05/23 History release 24 hr sacubitril 24 mg-valsartan 26 mg 1 tab PO BID 01/11/23 06/06/23 History tablet (Entresto) insulin aspart U-100 100 unit/mL 1 sliding scale dose subcut 02/15/23 Unknown History (3 mL) subcutaneous pen (Novolog USEASDIRECTD FlexPen U-100 Insulin aspart) ondansetron HCl 4 mg tablet 4 mg PO Q4H PRN nausea and vomiting 05/30/23 Unknown History cholestyramine (with sugar) 4 gram 4 g PO QDAY #368.76 grams 03/04/24 Unknown Rx oral powder nystatin 100,000 unit/gram topical 1 applic topical QD AY 03/04/24 Unknown History cream potassium chloride 20 mEq 20 meq PO QDAY 03/04/24 Unkn own History tablet,extended release(part/cryst) colestipol 1 gram tablet 2 g (2 x 1 gram) PO QDAY #60 tabs 06/06/24 Unknown Rx Allergy/AdvReac Type Severity Reaction Status Date / Time No Known Allergies Allergy Verified 10/15/24 16:03 Family History (Reviewed 02/15/23 @ 11:03 by Briana Plata TICKET COLLECTOR OR USHER, TICKET COLLECTOR OR USHER-C) Mother Diabetes Father Diabetes Heart disease Surgical History History of heart surgery History of cardiac catheterization S/P bilateral below knee amputation S/P CABG x 1 History of cardioversion (05/20/20) 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 alcohol intake: current alcohol intake frequency: a few times a month details: Prior heavier, now occasional. substance use type: does not use ROS ROS ED Constitutional Constitutional ED: Denies chills or fever(s) Eyes Eyes: Denies blurry vision or change in vision ENT ENT ED: Denies rhinorrhea or sore throat Cardiovascular Cardiovascular: Denies chest pain or palpitations Respiratory/Chest Respiratory/Chest: Denies cough or dyspnea Gastrointestinal Gastrointestinal: Denies nausea or vomiting Genitourinary Genitourinary ED: Denies dysuria or hematuria Musculoskeletal Musculoskeletal: Denies back pain or neck pain Integumentary Reports Abrasions and rash Neurologic Neurologic: Reports headache(s); Denies weakness Allergic/Immunologic Allergic/Immunologic ED: Denies mouth swelling or urticaria EXAM Physical Exam Const Vital Signs: 10/15/24 16:00 10/15/24 17:48 10/15/24 18:00 Temperature 98.2 F Temperature Source Oral Pulse Rate 99 64 Respiratory Rate 16 18 Respiratory Effort Normal Non-Labored Respiratory Depth Normal Respiratory Pattern Normal Blood Pressure 174/92 H 154/78 H Blood Pressure Mean 119 103 Pulse Ox 99 98 Oxygen Delivery Method Room Air Room Air Room Air Positive well nourished and well developed General Appearance ED: well developed and NAD HEENT HEENT Narrative: There is tenderness, edema, and ecchymosis of the left periorbital area. There is a superficial abrasion over this area. There is no bony crepitance or step- off. There is no bleeding noted. Eyes PERRL and EOMs intact bilaterally Neck full ROM and supple Resp normal respiratory effort and clear to auscultation bilaterally Cardio regular rate and regular rhythm GI non-tender and non-distended Palpation: soft Neuro oriented x3, CN's II-XII intact bilaterally, moves all extremities, no focal motor deficits and no sensory deficits noted Iwona Coma Scale: document GCS findings Spontaneous Obeys Commands Oriented 15 Sensorium / Orientation: alert Motor Exam: strength 5/5 throughout Skin Skin Narrative: There are abrasions of the anterior knees bilaterally and over the distal stumpsof his lower extremities. There is also a skin tear on the dorsal aspect of theleft hand and dorsal aspect of his left elbow. There is no active bleeding noted. There is no surrounding erythema or warmth. MDM MDM MDM Narrative Medical decision making narrative: Diagnosis includes orbital fracture, left elbow fracture, contusions, and abrasions. X-rays of the left elbow will be obtained to assess for fracture. CT scan of the orbits will be obtained to assessfor orbital fracture. Radiography Diagnostic Testing: X-rays of the left elbow were obtained. There are 3 views. My independent interpretation, there is no acute fracture or dislocation noted. There is no joint effusion noted. There are degenerative changes noted. Radiologist also interpreted the x-rays and agrees. CT scan of the orbits was obtained. Trachea is midline there is no orbital fracture noted. There isno retrobulbar hematoma noted. This was interpreted by the radiologist and was also independently reviewed by myself. Treatment and Re-Evaluation Narrative: Patient was advised of his findings. Patient was given bacitracin dressings. Patient was given a tetanus booster. Patient was instructed to take Tylenol or ibuprofen as needed for pain. Patient was instructed to follow-up with his primary care physician in 5 to 7 days. Patient understood and was agreeable with the plan. All questions were answered. Discharge Plan Triage Chief Complaint: Fall ED Provider: Jesse Angel Dx/Rx/DC Orders Clinical Impression: Contusion of periorbital region, left, Multiple abrasions, Fall Instructions: ED Eye Contusion, ED Head Injury (Adult), ED Skin Tear (Skin Avulsion) Prescriptions: No Action levothyroxine 50 mcg tablet 50 mcg PO DAILY atorvastatin 40 mg tablet 40 mg PO DAILY Eliquis 2.5 mg tablet 2.5 mg PO DAILY carvedilol [Coreg] 3.125 mg tablet 3.125 mg PO BID Rx Instructions: must administer with a meal/food, Hold if SBP less than 100 or HR less than 55 insulin aspart U-100 [Novolog FlexPen U-100 Insulin] 100 unit/mL (3 mL) insulin pen 1 sliding scale dose subcut USEASDIRECTD glipizide 2.5 mg tablet extended release 24hr 5 mg PO DAILY Entresto 24-26 mg tablet 1 tab PO BID potassium chloride 20 mEq tablet,ER particles/crystals 20 meq PO QDAY nystatin 100,000 unit/gram cream 1 applic topical QDAY cholestyramine (with sugar) 4 gram powder 4 g PO QDAY Qty: 368.76 1RF Rx Instructions: administer w/meal; avoid other meds within 1hr before or 4-6hr after dose colestipol 1 gram tablet 2 g PO QDAY Qty: 60 2RF Jardiance 10 mg tablet 25 mg PO DAILY polyethylene glycol 3350 [Miralax] 17 gram/dose Powder 17 g PO DAILY PRN (Reason: constipation) acetaminophen 325 mg capsule 650 mg PO Q4H PRN (Reason: pain) multivitamin Tablet 1 tab PO DAILY ondansetron HCl 4 mg tablet 4 mg PO Q4H PRN (Reason: nausea and vomiting) Rx Instructions: give 1st dose 30min before emetogenic chemo Primary Care Provider: Diana Salmeron Referrals: Diana Salmeron MD [Primary Care Provider] - 5-7 Days Print Language: Pakistani Disposition Disposition: Home, Self Care What to do if you have Problems For any increased pain, shortness of breath, bleeding, nausea or vomiting, chestpain, or any unexpected problems, contact your Primary Care Provider. Call [facility] ([phone]) or report tothe closest Emergency Room. Call 911 if necessary. 10/15/244 Cosigner Signature (if applicable): CC: Dr. Diana Salmeron MD ~ Signed [facility]04-29-2025 Radiology Diagnostic study note [facility] Imaging Services [address] [place] [address] Elbow min 3 Views MR#: [id number] Acct: [id number] Name: ELIZABETH MODI Rep #: [id number] : 1940 M 84 From: Franko Kapadia MD PCP: Dr. Diana Salmeron MD Status: REG ER Study:Elbow min 3 Views Date of Exam: Exam# [id number] Ordering Dr: Jesse Angel DO EXAM: Left elbow CLINICAL HISTORY: Injury, pain COMPARISON: None TECHNIQUE: Three views FINDINGS: No acute fracture or dislocation. Moderate joint space narrowing and osteophyte formation consistent with moderatearthrosis. Normal soft tissues. RAD/Elbow min 3 Views IMPRESSION: No acute fracture or dislocation. Moderate arthrosis. Reading Location: [facility] CC: Dr. Diana Salmeron MD; Dr. Jesse Angel DO ~ Assistant Golf Professional: Signed [facility]04-29-2025 Radiology Diagnostic study note [facility] Imaging Services [address] [place], [place] [address] Orb Sella Post Fossa Ear w/o MR#: [id number] Acct: [id number] Name: ELIZABETH MODI Rep #: [id number] : 1940 M 84 From: Franko Kapadia MD PCP: Dr. Diana Salmeron MD Status: REG ER Study:Orb Sella Post Fossa Ear w/o Date of Ex am: 10/15/24 Exam# [id number] Ordering Dr: Jesse Angel DO PROCEDURE: ORB SELLA POST FOSSA EAR W/O 10/15/2024 REASON FOR EXAM: INJURY TECHNIQUE: CT of the orbits without contrast. One or more dose reduction techniques were used (e.g., Automated exposure control, adjustment of the mA and/or kV according to patient size, use of iterative reconstruction technique). FINDINGS: Globes: Intact Extraocular Muscles: Normal Orbits: No abnormal mass. Lacrimal Glands: Normal Bones: No fracture. Other: Visualized paranasal sinuses and intracranial structures: No sinusitis. CT/Orb Sella Post Fossa Ear w/o IMPRESSION: NO ORBITAL FRACTURE OR RETROBULBAR HEMATOMA. Reading Location: [id number] CC: Dr. Diana Salmeron MD; Dr. Jesse Angel DO ~ Assistant Golf Professional: Signed [facility]04-29-2025 Discharge summary Author Jesse Angel [facility] Note Date/Time October 15, 2024 11: 45pm [facility] Medical Records Department [address] [place] [address] Emergency Department Summary 10/15/24 MR#: [id number] Acct: [id number] Name: ELIZABETH MODI Rep #:[id number] : 1940 84 From: Jesse Griffith PCP: Dr. Diana Salmeron MD Status:REG ER Location: ED HPI HPI - Fall History of Present Illness Chief Complaint: Fall Occured/Mechanism Occurred: Today Narrative: Fell out of his motorized chair Pain/Injury Location: Left hand, left elbow, bilateral knees, left periorbital area Pain Location: face, upper extremity and lower extremity Quality of Pain: - (Cramping) Worsened by: Nothing Relieved by: Nothing Narrative Narrative: Patient presents after a fall out of his motorized chair today. Patient states he was in his chair going down the sidewalk when the sidewalk was uneven. Patient did not see this and hit the uneven sidewalk. Patient states that this caused him to fall forward out of his motorized chair. Patient hit the left side of his head. Patient also complains of pain in his left elbow. Patient also admits to abrasions everywhere both lower extremities and his left hand. Patient denies any loss of consciousness. Patient denies any paresthesias or weakness. Patient is unsure of his last tetanus. Tetanus Immunization: Unknown [facility] Medical History History of echocardiogram History of stress test Cardiology follow-up encounter Sleep apnea Loss of hearing CAD (coronary artery disease) High cholesterol History of heart attack Renal mass, left Thyroid disease History of atrial fibrillation Hypertension History of CHF (congestive heart failure) Wears glasses Wears dentures Insulin dependent diabetes mellitus History of renal disease Non-smoker COPD (chronic obstructive pulmonary disease) Obesity Atherosclerotic heart disease of [place] coronary artery without angina pectoris Paroxysmal atrial fibrillation 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 Essential hypertension Tinea unguium Vitamin D deficiency Edentulous Tobacco dependence in remission Hypothyroidism Diabetes mellitus type 2, uncontrolled Home Medications ?Medication ?Instructions ?Recorded ?Last Taken ?Type levothyroxine 50 mcg tablet 50 mcg PO DAILY 09/01/21 1 08/07/22 History apixaban 2.5 mg tablet (Eliquis) 2.5 mg PO DAILY 03/0306/03/23 History atorvastatin 40 mg tablet 40 mg PO DAILY 03/03/2205/19 History carvedilol 3.125 mg tablet (Coreg) 3.125 mg PO BID 06/06/23 History acetaminophen 325 mg capsule 650 mg PO Q4H PRN pain Unknown History empagliflozin 10 mg tablet 25 mg PO DAILY 12/14/22 History (Jardiance) multivitamin 1 tab PO DAILY 12/14/22 Unkn own History polyethylene glycol 3350 17 17 g PO DAILY PRN constipa tion 12/14/22 Unknown History gram/dose oral powder (Miralax) glipizide 2.5 mg tablet, extended 5 mg PO DAILY 06/05/23 History release 24 hr sacubitril 24 mg-valsartan 26 mg 1 tab PO BID 01/11/23 06/06/23 History tablet (Entresto) insulin aspart U-100 100 unit/mL 1 sliding scale dose subcut 02/15/23 Unknown History (3 mL) subcutaneous pen (Novolog USEASDIRECTD FlexPen U-100 Insulin aspart) ondansetron HCl 4 mg tablet 4 mg PO Q4H PRN nausea and vomiting 05/30/23 Unknown History cholestyramine (with sugar) 4 gram 4 g PO QDAY #368.76 grams 03/04/24 Unknown Rx oral powder nystatin 100,000 unit/gram topical 1 applic topical QD AY 03/04/24 Unknown History cream potassium chloride 20 mEq 20 meq PO QDAY 03/04/24 Unkn own History tablet,extended release(part/cryst) colestipol 1 gram tablet 2 g (2 x 1 gram) PO QDAY #60 tabs 06/06/24 Unknown Rx Allergy/AdvReac Type Severity Reaction Status Date / Time No Known Allergies Allergy Verified 10/15/24 16:03 Family History Mother Diabetes Father Diabetes Heart disease Surgical History History of heart surgery History of cardiac catheterization S/P bilateral below knee amputation S/P CABG x 1 History of cardioversion (05/20/20) 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 alcohol intake: current alcohol intake frequency: a few times a month details: Prior heavier, now occasional. substance use type: does not use ROS ROS ED Constitutional Constitutional ED: Denies chills or fever(s) Eyes Eyes: Denies blurry vision or change in vision ENT ENT ED: Denies rhinorrhea or sore throat Cardiovascular Cardiovascular: Denies chest pain or palpitations Respiratory/Chest Respiratory/Chest: Denies cough or dyspnea Gastrointestinal Gastrointestinal: Denies nausea or vomiting Genitourinary Genitourinary ED: Denies dysuria or hematuria Musculoskeletal Musculoskeletal: Denies back pain or neck pain Integumentary Reports Abrasions and rash Neurologic Neurologic: Reports headache(s); Denies weakness Allergic/Immunologic Allergic/Immunologic ED: Denies mouth swelling or urticaria EXAM Physical Exam Const Vital Signs: 10/15/24 16:00 10/15/24 17:48 10/15/24 18:00 Temperature 98.2 F Temperature Source Oral Pulse Rate 99 64 Respiratory Rate 16 18 Respiratory Effort Normal Non-Labored Respiratory Depth Normal Respiratory Pattern Normal Blood Pressure 174/92 H 154/78 H Blood Pressure Mean 119 103 Pulse Ox 99 98 Oxygen Delivery Method Room Air Room Air Room Air Positive well nourished and well developed General Appearance ED: well developed and NAD HEENT HEENT Narrative: There is tenderness, edema, and ecchymosis of the left periorbital area. There is a superficial abrasion over this area. There is no bony crepitance or step-off. There is no bleeding noted. Eyes PERRL and EOMs intact bilaterally Neck full ROM and supple Resp normal respiratory effort and clear to auscultation bilaterally Cardio regular rate and regular rhythm GI non-tender and non-distended Palpation: soft Neuro oriented x3, CN's II-XII intact bilaterally, moves all extremities, no focal motor deficits and no sensory deficits noted Iwona Coma Scale: document GCS findings Spontaneous Obeys Commands Oriented 15 Sensorium / Orientation: alert Motor Exam: strength 5/5 throughout Skin Skin Narrative: There are abrasions of the anterior knees bilaterally and over the distal stumpsof his lower extremities. There is also a skin tear on the dorsal aspect of theleft hand and dorsal aspect of his left elbow. There is no active bleeding noted. There is no surrounding erythema or warmth. MDM MDM MDM Narrative Medical decision making narrative: Diagnosis includes orbital fracture, left elbow fracture, contusions, and abrasions. X-rays of the left elbow will be obtained to assess for fracture. CT scan of the orbits will be obtained to assess for orbital fracture. Radiography Diagnostic Testing: X-rays of the left elbow were obtained. There are 3 views. My independent interpretation, there is no acute fracture or dislocation noted. There is no joint effusion noted. There are degenerative changes noted. Radiologist also interpreted the x-rays and agrees. CT scan of the orbits was obtained. Trachea is midline there is no orbital fracture noted. There is no retrobulbar hematoma noted. This was interpreted by the radiologist and was also independently reviewed by myself. Treatment and Re-Evaluation Narrative: Patient was advised of his findings. Patient was given bacitracin dressings. Patient was given a tetanus booster. Patient was instructed to take Tylenol or ibuprofen as needed for pain. Patient was instructed to follow-up with his primary care physician in 5 to 7 days. Patient understood and was agreeable with the plan. All questions were answered. Discharge Plan Triage Chief Complaint: Fall ED Provider: Jesse Angel Dx/Rx/DC Orders Clinical Impression: Contusion of periorbital region, left, Multiple abrasions, Fall Instructions: ED Eye Contusion, ED Head Injury (Adult), ED Skin Tear (Skin Avulsion) Prescriptions: No Action levothyroxine 50 mcg tablet 50 mcg PO DAILY atorvastatin 40 mg tablet 40 mg PO DAILY Eliquis 2.5 mg tablet 2.5 mg PO DAILY carvedilol [Coreg] 3.125 mg tablet 3.125 mg PO BID Rx Instructions: must administer with a meal/food, Hold if SBP less than 100 or HR less than 55 insulin aspart U-100 [Novolog FlexPen U-100 Insulin] 100 unit/mL (3 mL) insulin pen 1 sliding scale dose subcut USEASDIRECTD glipizide 2.5 mg tablet extended release 24hr 5 mg PO DAILY Entresto 24-26 mg tablet 1 tab PO BID potassium chloride 20 mEq tablet,ER particles/crystals 20 meq PO QDAY nystatin 100,000 unit/gram cream 1 applic topical QDAY cholestyramine (with sugar) 4 gram powder 4 g PO QDAY Qty: 368.76 1RF Rx Instructions: administer w/meal; avoid other meds within 1hr before or 4-6hr after dose colestipol 1 gram tablet 2 g PO QDAY Qty: 60 2RF Jardiance 10 mg tablet 25 mg PO DAILY polyethylene glycol 3350 [Miralax] 17 gram/dose Powder 17 g PO DAILY PRN (Reason: constipation) acetaminophen 325 mg capsule 650 mg PO Q4H PRN (Reason: pain) multivitamin Tablet 1 tab PO DAILY ondansetron HCl 4 mg tablet 4 mg PO Q4H PRN (Reason: nausea and vomiting) Rx Instructions: give 1st dose 30min before emetogenic chemo Primary Care Provider: Diana Salmeron Referrals: Diana Salmeron MD [Primary Care Provider] - 5-7 Days Print Language: Pakistani Disposition Disposition: Home, Self Care What to do if you have Problems For any increased pain, shortness of breath, bleeding, nausea or vomiting, chestpain, or any unexpected problems, contact your Primary Care Provider. Call [facility] ([phone]) or report to the closest Emergency Room. Call 911 if necessary. 10/15/24 0447 <Electronically signed by Jesse Angel DO> Cosigner Signature (if applicable): CC: Dr. Diana Salmeron MD ~ Signed [facility] Work Phone: [phone] Telephone encounter Note* Telephone Encounter - Yue Huffman - 10/01/2024 2:11 PM EDT May you please submit another order for for Urogram CT. When last appt was canceled the order was not removed from the appt. Sorry for the inconvenience. Marivel PSS [facility]04-15-2025 Miscellaneous Notes* Telephone Encounter - Yue Su - 10/01/2024 2:11 PM EDT May you please submit another order for for Urogram CT. When last appt was canceled the order was not removed from the appt. Sorry for the inconvenience. Marivel PSS [facility] Instructions* Patient Instructions* Nikolai Connor PA-C - 10/01/2024 1:46 PM EDT documented [facility]25 NoteHNO ID: [id number] Author: NIKOLAI CONNOR PA-C Service: ? Author Type: Physician Senior Advocate Type: Progress Notes Filed: 10/01/2024 14:58 Note Text: [facility] PATIENT CLINIC NOTE (M) Some elements copied from his previous note, which have been updated where appropriate, and all reflect current medical decision making from date of this visit. SERVICE DATE: October 01, 2024 NAME: Elizabeth Modi GENDER: male CHIEF COMPLAINT: The patient is an 84-year-old male with a history of hematuria, seen today for follow-up. HISTORY OF PRESENT ILLNESS: Hematuria: - Gross hematuria noted in June. - CT urogram performed on June 28. - Cystoscopy was ordered but not completed; patient declined the procedure. - Persistent hematuria, with urine appearing brown today. - Increased water intake reportedly clears up the urine temporarily. - Denies any pain except in the legs. > We discussed the common causes of urinary frequency and urgency, and restricting water intake In hopes to mitigate the need to urinate, we discussed how this behavior more often worsen the problem not improving it, > We discussed increasing daily water intake to 64-84 oz 7a -7p and try to reduce bladder irritants, caffeine, alcohol and acid foods and drink. > Bladder irritants handout available to patient. LABS: No results found for: "PSA" Creatinine Date Value Ref Range Status 06/18/2024 1.37 (H) 0.73 - 1.22 mg/dL Final 09/01/2022 2.01 (H) 0.73 - 1.22 mg/dL Final 12/24/2021 1.55 (H) 0.50 - 1.40 mg/dL Final Comment: Patients receiving either N-Acetylcysteine (NAC) or Metamizole prior to venipuncture, may have falsely depressed results. No results found for: "TESTOST" Hematocrit (%) Date Value 09/01/2022 45.3 12/24/2021 41.1 05/15/2020 43.5 12/10/2019 38.9 09/09/2019 27.5 09/08/2019 27.0 No results found for: "PSA" MEDICATIONS: potassium chloride 20 mEq TbER Take 20 mEq by mouth once daily. iv contrast (will be provided with radiology test) CT Urogram WO/W Inject, intravenously, once for 1 dose.No IV access, insert saline lock prior to the beginning of sedation, infusion, injection of imaging exam. Discontinue saline lock post exam. If Pt. has a central line or IVAD, may access for administration according to line specific nursing protocol. Once exam is complete flush line and de-access according to line specific nursing protocol in the CT contrast administration guidelines link. keTORolac (ACULAR) 0.5 % ophthalmic solution glipiZIDE (GLUCOTROL XL) 2.5 mg 24 hr tablet mupirocin (BACTROBAN) 2 % ointment pantoprazole DR (PROTONIX) 40 mg tablet apixaban (ELIQUIS) 2.5 mg tab(s) 2.5 mg once daily. acetaminophen (TYLENOL) 325 mg tablet Take 650 mg by mouth. aspirin 81 mg chewable tablet Take 81 mg by mouth. amiodarone (PACERONE) 200 mg tablet 200 mg once daily. carvedilol (COREG) 3.125 mg tablet carvedilol 3.125 mg tablet 1 tab po BID empagliflozin (JARDIANCE) 25 mg tablet Take 25 mg by mouth once daily. sacubitril-valsartan (ENTRESTO) 24-26 mg tablet Entresto 24 mg-26 mg tablet 1 tab po BID insulin aspart U-100 (NOVOLOG) 100 unit/mL Novolog U-100 Insulin aspart 100 unit/mL subcutaneous solution sliding scale NOVOLOG U-100 INSULIN ASPART 100 unit/mL polyethylene glycol 3350 17 gram packet Take 17 g by mouth once daily. Dissolve dose in 4 - 8 ounces of liquid and take as directed. multivit-min/iron/folic acid/K (ADULTS MULTIVITAMIN ORAL) Take by mouth. vit C,L-Yf-hghfr-lutein-zeaxan (PRESERVISION AREDS-2) 250-90-40-1 mg Take 1 Each by mouth. insulin lispro (HUMALOG) 100 unit/mL injection Inject subcutaneously before meals and at bedtime. SSI- if BS- 201-250= 3 units If BS- 251-300= 6 units If BS- 301-350= 9 units If BS- 351-400= 12 units Call MD for BS <70>400 isosorbide mononitrate ER (IMDUR) 30 mg 24 hr tablet Take 30 mg by mouth once daily. predniSONE (DELTASONE) 1 mg tablet Take 1 mg by mouth once daily. citalopram hydrobromide (CELEXA) 10 mg tablet Take 10 mg by mouth once daily. TOUJEO MAX U-300 SOLOSTAR 300 unit/mL (3 mL) inpn Inject 70 Units subcutaneously daily at bedtime. insulin lispro (HUMALOG KWIKPEN INSULIN) 100 unit/mL Inject 32 Units subcutaneously two times a day. metoprolol succinate ER (TOPROL XL) 25 mg 24 hr tablet Take 50 mg by mouth once daily. atorvastatin (LIPITOR) 40 mg tablet Take 20 mg by mouth once daily. (Patient taking differently: Take 40 mg by mouth once daily.) levothyroxine (SYNTHROID) 25 mcg tablet Take 50 mcg by mouth once daily. (Patient taking differently: Take 75 mcg by mouth once daily.) lisinopril (ZESTRIL, PRINIVIL) 10 mg tablet Take 10 mg by mouth once daily. PAST MEDICAL HISTORY: PAST MEDICAL HISTORY Diagnosis Date Anxiety and depression Chronic a-fib (HCC) Chronic kidney disease no dialysis. Dr. Montgomery in [place] Congestive (more content not included)...[facility]04-15-2025 History of Present illness Narrative* Nikolai Connor PA-C - 10/01/2024 1:42 PM EDT Images from the original note were not included. [facility] PATIENT CLINIC NOTE (M) Some elements copied from his previous note, which have been updated where appropriate, and all reflect current medical decision making from date of this visit. SERVICE DATE: October 01, 2024 NAME: Elizabeth Modi GENDER: male CHIEF COMPLAINT: The patient is an 84-year-old male with a history of hematuria, seen today for follow-up. HISTORY OF PRESENT ILLNESS: Hematuria: - Gross hematuria noted in June. - CT urogram performed on June 28. - Cystoscopy was ordered but not completed; patient declined the procedure. - Persistent hematuria, with urine appearing brown today. - Increased water intake reportedly clears up the urine temporarily. - Denies any pain except in the legs. > We discussed the common causes of urinary frequency and urgency, and restricting water intake In hopes to mitigate the need to urinate, we discussed how this behavior more often worsen the problem not improving it, > We discussed increasing daily water intake to 64-84 oz 7a -7p and try to reduce bladder irritants, caffeine, alcohol and acid foods and drink. > Bladder irritants handout available to patient. LABS: No results found for: "PSA" Creatinine Date Value Ref Range Status 06/18/2024 1.37 (H) 0.73 - 1.22 mg/dL Final 09/01/2022 2.01 (H) 0.73 - 1.22 mg/dL Final 12/24/2021 1.55 (H) 0.50 - 1.40 mg/dL Final Comment: Patients receiving either N-Acetylcysteine (NAC) or Metamizole prior to venipuncture, may have falsely depressed results. No results found for: "TESTOST" Hematocrit (%) Date Value 09/01/2022 45.3 12/24/2021 41.1 05/15/2020 43.5 12/10/2019 38.9 09/09/2019 27.5 09/08/2019 27.0 No results found for: "PSA" MEDICATIONS: potassium chloride 20 mEq TbER Take 20 mEq by mouth once daily. iv contrast (will be provided with radiology test) CT Urogram WO/W Inject, intravenously, once for 1 dose.No IV access, insert saline lock prior to the beginning of sedation, infusion, injection of imaging exam. Discontinue saline lock post exam. If Pt. has a central line or IVAD, may access for administration according to line specific nursing protocol. Once exam is complete flush line and de-access according to line specific nursing protocol in the CT contrast administration guidelines link. keTORolac (ACULAR) 0.5 % ophthalmic solution glipiZIDE (GLUCOTROL XL) 2.5 mg 24 hr tablet mupirocin (BACTROBAN) 2 % ointment pantoprazole DR (PROTONIX) 40 mg tablet apixaban (ELIQUIS) 2.5 mg tab(s) 2.5 mg once daily. acetaminophen (TYLENOL) 325 mg tablet Take 650 mg by mouth. aspirin 81 mg chewable tablet Take 81 mg by mouth. amiodarone (PACERONE) 200 mg tablet 200 mg once daily. carvedilol (COREG) 3.125 mg tablet carvedilol 3.125 mg tablet 1 tab po BID empagliflozin (JARDIANCE) 25 mg tablet Take 25 mg by mouth once daily. sacubitril-valsartan (ENTRESTO) 24-26 mg tablet Entresto 24 mg-26 mg tablet 1 tab po BID insulin aspart U-100 (NOVOLOG) 100 unit/mL Novolog U-100 Insulin aspart 100 unit/mL subcutaneous solution sliding scale NOVOLOG U-100 INSULIN ASPART 100 unit/mL polyethylene glycol 3350 17 gram packet Take 17 g by mouth once daily. Dissolve dose in 4 - 8 ounces of liquid and take as directed. multivit-min/iron/folic acid/K (ADULTS MULTIVITAMIN ORAL) Take by mouth. vit C,M-Oj-veusn-lutein-zeaxan (PRESERVISION AREDS-2) 250-90-40-1 mg Take 1 Each by mouth. insulin lispro (HUMALOG) 100 unit/mL injection Inject subcutaneously before meals and at bedtime. SSI- if BS- 201-250= 3 units If BS- 251-300= 6 units If BS- 301-350= 9 units If BS- 351-400= 12 units Call MD for BS <70>400 isosorbide mononitrate ER (IMDUR) 30 mg 24 hr tablet Take 30 mg by mouth once daily. predniSONE (DELTASONE) 1 mg tablet Take 1 mg by mouth once daily. citalopram hydrobromide (CELEXA) 10 mg tablet Take 10 mg by mouth once daily. TOUJEO MAX U-300 SOLOSTAR 300 unit/mL (3 mL) inpn Inject 70 Units subcutaneously daily at bedtime. insulin lispro (HUMALOG KWIKPEN INSULIN) 100 unit/mL Inject 32 Units subcutaneously two times a day. metoprolol succinate ER (TOPROL XL) 25 mg 24 hr tablet Take 50 mg by mouth once daily. atorvastatin (LIPITOR) 40 mg tablet Take 20 mg by mouth once daily. (Patient taking differently: Take 40 mg by mouth once daily.) levothyroxine (SYNTHROID) 25 mcg tablet Take 50 mcg by mouth once daily. (Patient taking differently: Take 75 mcg by mouth once daily.) lisinopril (ZESTRIL, PRINIVIL) 10 mg tablet Take 10 mg by mouth once daily. PAST MEDICAL HISTORY: PAST MEDICAL HISTORY Diagnosis Date Anxiety and depression Chronic a-fib (HCC) Chronic kidney disease no dialysis. Dr. Montgomery in [place] Congestive heart failure (HCC) DM (diabetes mellitus) (HCC) PCP follows Dyslipidemia Heart attack (HCC) HTN (hypertension) Hypercholesterolemia Hypothyroidism Left renal mass PVD (peripheral vascular disease) Renal mass REVIEW OF SYSTEMS: GENERAL: No fever, chills, weight loss, or fatigue. PHYSICAL EXAMINATION: General: Alert & oriented, no acute distress Skin: Normal HEENT: Pupils equal, round. Oral cavity, oropharynx clear Neck: Supple, no mass Breast: Deferred Respiratory: Clear to auscultation, bilaterally Cardiovascular: Regular rate and rhythm, no murmurs, rubs, or gallops Abdomen: Soft, non-tender, non-distended, no masses palpable, no hepatosplenomegaly, normal bowel sounds Genitourinary: Deferred MSK: Back is non-tender Extremities: No clubbing, cyanosis, or edema The patient or authorized technical sales representatives has verbally agreed to proceed with the sensitive examination. 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 This abuts the renal sinus fat but does not invade the renal vein or collecting system. No abdominopelvic metastasis. Punctate non-obstructing left nephrolithiasis. Asymmetric nodular enhancement in the LEFT posterolateral peripheral zone of the prostate gland, which can be seen in the setting of prostate cancer. Correlate with PSA and digital rectal examination. Urinary bladder is mildly thick-walled and trabeculated, probably related to chronic outlet obstruction from the mildly enlarged prostate gland. ASSESSMENT/PLAN: 1. Gross hematuria - ICD9: 599.71, ICD10: R31.0 (primary diagnosis) 2. Screening for genitourinary condition - ICD9: V81.6, ICD10: Z13.89 New Diagnosis of unknown prognosis testing to follow A new order for a cystoscopy (bladder scope) with Dr. Hawk at [facility] has been placed; please turn in the printed order with the alf so they can schedule your procedure. A urine culture has been ordered to check for infection. Increase your water intake to help clear the dark urine. If no bladder tumor is found on the cystoscopy or if your symptoms persist, you will need to followup with us to complete your hematuria workup. JAJA Stewart MT, PA-C * Luke Taylor LPN - 10/01/2024 1:19 PM EDT Verified name and date of . CC Post Void Residual HPI: Elizabeth Modi is a 84 year old male. The patient is here now for an appointment with JAJA Stewart MT, PA-COV. Procedure: Explained procedure to patient and verbalizes understanding. Performed a PVR. Patient urinated and instructed to empty bladder as much as possible just prior to having PVR done using bladder ultrasound scanner. Results of scan: 163 mL The patient tolerated the procedure well. Plan: Appointment with Nikolai. [facility]25 NoteHNO ID: [id number] Author: LUKE TAYLOR LPN Service: ? Author Type: LICENSED NURSE Type: Progress Notes Filed: 10/01/2024 14:58 Note Text: Verified name and date of . CC Post Void Residual HPI: Elizabeth Modi is a 84 year old male. The patient is here now for an appointment with Nikolai Connor, JAJA, MT, PA-COV. Procedure: Explained procedure to patient and verbalizes understanding. Performed a PVR. Patient urinated and instructed to empty bladder as much as possible just prior to having PVR done using bladder ultrasound scanner. Results of scan: 163 mL The patient tolerated the procedure well. Plan: Appointment with Nikolai.[facility]03-21-2025 Evaluation note* Diagnosis Onset Date Resolution Status Admit Date Fecal incontinence acute September 06, 2024 1:38pm S/P ERCP chronic September 06 1:38pm [facility] Work Phone: 1(636) 321-915103-21-2025 Evaluation note* Diagnosis Onset Date Resolution Status Admit Date Fecal incontinence acute September 06, 2024 1:38pm S/P ERCP chronic September 06 1:38pm Atherosclerotic heart diseas e of [place] coronary artery without angina pectoris chronic October 16, 2024 7:59am Essential hypertension chronic Ap 2024 7:59am Hyperlipidemia chronic September 7:59am Paroxysmal atrial fibrillation chron ic October 16, 2024 7:59am [facility] Work Phone: 1(851) 718-867701-21-2025 Telephone encounter Note* Telephone Encounter - Luke Taylor LPN - 07/09/2024 3:50 PM EST Letter sent to patient that we have not been able to contact Desiree. Luke Taylor LPN [facility]01-21-2025 Miscellaneous Notes* Telephone Encounter - Luke Taylor LPN - 07/09/2024 3:50 PM EST Letter sent to patient that we have not been able to contact Angelic. Luke Taylor LPN * Telephone Encounter - Luke Taylor LPN - 07/09/2024 3:47 PM EST Called Angelic. No answer- left message to call clinic. Luke Taylor LPN * Telephone Encounter - Luke Taylor LPN - 07/05/2024 4:27 PM EST Called Angelic. No answer- left message to call clinic. Luke Taylor LPN * Telephone Encounter - Susan Joy MA - 06/25/2024 8:46 AM EST LM for Angelic to contact office to inform. Susan Joy MA * Telephone Encounter - Anaid Payne MA - 06/21/2024 4:28 PM EST ----- Message from Nikolai Connor PA-C sent at 06/21/2024 3:54 PM EST ----- No infection in the urine No cancer cells in urine, please continue the rest of the testing JAJA Stewart, TU DIAZ documented in this encounterReg[facility]01-21-2025 Telephone encounter Note * Telephone Encounter - Luke Taylor LPN - 07/09/2024 3:47 PM EST Called Angelic. No answer- left message to call clinic. Luke Taylor LPN [facility]01-17-2025 Telephone encounter Note* Telephone Encounter - Luke Taylor LPN - 07/05/2024 4:27 PM EST Called Angelic. No answer- left message to call clinic. Luke Taylor LPN [facility]01-14-2025 Telephone encounter Note* Telephone Encounter - Nayeli Dominguez - 07/02/2024 2:24 PM EST Left pt's daughter message to call & schedule cysto with Dr. Prakash Connor. Delmi [facility]01-14-2025 Miscellaneous Notes* Telephone Encounter - Nayeli Dominguez - 07/02/2024 2:24 PM EST Left pt's daughter message to call & schedule cysto with Dr. Prakash Connor. Delmi documented in this encounterRegency [facility]01-10-2025 History of Present illness Narrative* Luke Whitmore, RT(R) - 06/28/2024 1:20 PM EST Radiology Service Progress Note DATE OF SERVICE: June 28, 2024 TIME: 1:57 PM PATIENT IDENTITY VERIFICATION COMPLETED USING TWO (2) STANDARD IDENTIFIERS: Name and Date of confirmed by patient verbally. FALL SCREENING: Has the patient had 2 falls in the last year or 1 fall with injury or currently using an Ambulatory Assistive Device (Walker, Cane, Wheelchair, Crutches, etc.)? No PATIENT GENDER DATA: Assigned male at PATIENT RELEVANT IMPLANT DATA REVIEWED: Yes PATIENT PRESENTS WITH AN IMPLANTABLE OR ATTACHED FERRIS WHEEL OPERATOR: No ALLERGIES: Reviewed and unchanged CONTRAST ALLERGY: NO. EXAM: CT -CONTRAST INDUCED NEPHROPATHY RISK FACTORS: Patient age > 60 years CREATININE: Creatinine Date Value Ref Range Status 06/18/2024 1.37 (H) 0.73 - 1.22 mg/dL Final 09/01/2022 2.01 (H) 0.73 - 1.22 mg/dL Final 12/24/2021 1.55 (H) 0.50 - 1.40 mg/dL Final Comment: Patients receiving either N-Acetylcysteine (NAC) or Metamizole prior to venipuncture, may have falsely depressed results. Estimated Glomerular Filtration Rate Date Value Ref Range Status 06/18/2024 52 (L) >=60 mL/min/1.73m Final Comment: Estimated Glomerular Filtration Rate (eGFR) is calculated using the 2020 CKD-EPI creatinine equation. This equation utilizes serum creatinine, sex, and age as parameters. The creatinine assay has traceable calibration to isotope dilution- mass spectrometry. Refer to KDIGO guidelines for clinical interpretation. In patients with unstable renal function, e.g. those with acute kidney injury, the eGFRmay not accurately reflect actual GFR. eGFR- Date Value Ref Range Status 05/15/2020 >60 Final P.O.C.T. RESULTS: POC done: Yes, See Lab Tab June 28, 2024 TREATMENT: N/A PERIPHERAL IV DATA: Ambulatory: A peripheral IV was started in the Left hand with a Angio cath: 22 gauge. RADIOLOGY DEPARTMENT: CT; Exam(s) Completed: Urogram SIGNATURE: KARLI Kirk) PATIENT NAME: Elizabeth Modi DATE: June 28, 2024 TIME: 1:57 PM documented in this encounterRegency [facility]01-10-2025 NoteHNO ID: [id number] Author: LUKE WHITMORE RT(R) Service: ? Author Type: Home Office Claims Examiner Type: Progress Notes Filed: 06/28/2024 13:57 Note Text: Radiology Service Progress Note DATE OF SERVICE: June 28, 2024 TIME: 1:57 PM PATIENT IDENTITY VERIFICATION COMPLETED USING TWO (2) STANDARD IDENTIFIERS: Name and Date of confirmed by patient verbally. FALL SCREENING: Has the patient had 2 falls in the last year or 1 fall with injury or currently using an Ambulatory Assistive Device (Walker, Cane, Wheelchair, Crutches, etc.)? No PATIENT GENDER DATA: Assigned male at PATIENT RELEVANT IMPLANT DATA REVIEWED: Yes PATIENT PRESENTS WITH AN IMPLANTABLE OR ATTACHED FERRIS WHEEL OPERATOR: No ALLERGIES: Reviewed and unchanged CONTRAST ALLERGY: NO. EXAM: CT -CONTRAST INDUCED NEPHROPATHY RISK FACTORS: Patient age > 60 years CREATININE: Creatinine Date Value Ref Range Status 06/18/2024 1.37 (H) 0.73 - 1.22 mg/dL Final 09/01/2022 2.01 (H) 0.73 - 1.22 mg/dL Final 12/24/2021 1.55 (H) 0.50 - 1.40 mg/dL Final Comment: Patients receiving either N-Acetylcysteine (NAC) or Metamizole prior to venipuncture, may have falsely depressed results. Estimated Glomerular Filtration Rate Date Value Ref Range Status 06/18/2024 52 (L) >=60 mL/min/1.73m? Final Comment: Estimated Glomerular Filtration Rate (eGFR) is calculated using the 2020 CKD-EPI creatinine equation. This equation utilizes serum creatinine, sex, and age as parameters. The creatinine assay has traceable calibration to isotope dilution-mass spectrometry. Refer to KDIGO guidelines for clinical interpretation. In patients with unstable renal function, e.g. those with acute kidney injury, the eGFR may not accurately reflect actual GFR. eGFR- Date Value Ref Range Status 05/15/2020 >60 Final P.O.C.T. RESULTS: POC done: Yes, See Lab Tab June 28, 2024 TREATMENT: N/A PERIPHERAL IV DATA: Ambulatory: A peripheral IV was started in the Left hand with a Angio cath: 22 gauge. RADIOLOGY DEPARTMENT: CT; Exam(s) Completed: Urogram SIGNATURE: RT Reagan(R) PATIENT NAME: Elizabeth Modi DATE: June 28, 2024 TIME: 1:57 [facility]01-07-2025 Telephone encounter Note* Telephone Encounter - Susan Joy MA - 06/25/2024 8:46 AM EST LM for Angelic to contact office to inform. Susan Joy MA [facility]01-03-2025 Telephone encounter Note* Telephone Encounter - Anaid Payne MA - 06/21/2024 4:28 PM EST ----- Message from Nikolai Connor PA-C sent at 06/21/2024 3:54 PM EST ----- No infection in the urine No cancer cells in urine, please continue the rest of the testing JAJA Stewart MT, PA-C [facility]12-31-2024 NoteHNO ID: [id number] Author: NIKOLAI CONNOR PA-C Service: ? Author Type: Physician Senior Advocate Type: Progress Notes Filed: 06/18/2024 16:05 Note Text: [facility] NEW PATIENT CLINIC NOTE SERVICE DATE: June 18, 2024 NAME: Elizabeth Modi CHIEF COMPLAINT: Hematuria HISTORY OF PRESENT ILLNESS: Elizabeth Modi is a 83 year old male an new patient here for The patient reports Hematuria with a few episodes of hematuria Will get Urine sample today for culture and cytology Schedule Cystoscopy at [place] And CT Urogram at [place] We discussed the need for full hematuria workup due to the Gross Blood in the urine. These tests and procedures will be ordered today. LUTS: EMPTIES COMPLETELY: Yes UTI: No and 1 past 12 months GROSS HEMATURIA: yes LABS: No results found for: "PSA" No results found for: "TESTOST" Hematocrit (%) Date Value 09/01/2022 45.3 12/24/2021 41.1 05/15/2020 43.5 12/10/2019 38.9 09/09/2019 27.5 09/08/2019 27.0 No results found for: "PSA" Creatinine Date Value Ref Range Status 06/18/2024 1.37 (H) 0.73 - 1.22 mg/dL Final 09/01/2022 2.01 (H) 0.73 - 1.22 mg/dL Final 12/24/2021 1.55 (H) 0.50 - 1.40 mg/dL Final Comment: Patients receiving either N-Acetylcysteine (NAC) or Metamizole prior to venipuncture, may have falsely depressed results. MEDICATIONS: iv contrast (will be provided with radiology test) CT Urogram WO/W Inject, intravenously, once for 1 dose.No IV access, insert saline lock prior to the beginning of sedation, infusion, injection of imaging exam. Discontinue saline lock post exam. If Pt. has a central line or IVAD, may access for administration according to line specific nursing protocol. Once exam is complete flush line and de-access according to line specific nursing protocol in the CT contrast administration guidelines link. 0.9 % sodium chloride (NACL 0.9%) infusion Inject 150 mL/hr intravenously one time only for 1 dose. Administer at rate defined per CT contrast administration specifications. To be provided with radiology test. keTORolac (ACULAR) 0.5 % ophthalmic solution glipiZIDE (GLUCOTROL XL) 2.5 mg 24 hr tablet mupirocin (BACTROBAN) 2 % ointment pantoprazole DR (PROTONIX) 40 mg tablet apixaban (ELIQUIS) 2.5 mg tab(s) 2.5 mg once daily. acetaminophen (TYLENOL) 325 mg tablet Take 650 mg by mouth. aspirin 81 mg chewable tablet Take 81 mg by mouth. amiodarone (PACERONE) 200 mg tablet 200 mg once daily. carvedilol (COREG) 3.125 mg tablet carvedilol 3.125 mg tablet 1 tab po BID empagliflozin (JARDIANCE) 25 mg tablet Jardiance 25 mg tablet 1 tab po daily sacubitril-valsartan (ENTRESTO) 24-26 mg tablet Entresto 24 mg-26 mg tablet 1 tab po BID insulin aspart U-100 (NOVOLOG) 100 unit/mL Novolog U-100 Insulin aspart 100 unit/mL subcutaneous solution sliding scale NOVOLOG U-100 INSULIN ASPART 100 unit/mL polyethylene glycol 3350 17 gram packet Take 17 g by mouth once daily. Dissolve dose in 4 - 8 ounces of liquid and take as directed. multivit-min/iron/folic acid/K (ADULTS MULTIVITAMIN ORAL) Take by mouth. vit C,Z-Zv-cdner-lutein-zeaxan (PRESERVISION AREDS-2) 250-90-40-1 mg Take 1 Each by mouth. insulin lispro (HUMALOG) 100 unit/mL injection Inject subcutaneously before meals and at bedtime. SSI- if BS- 201-250= 3 units If BS- 251-300= 6 units If BS- 301-350= 9 units If BS- 351-400= 12 units Call MD for BS <70>400 (Patient not taking: Reported on 05/05/2023) isosorbide mononitrate ER (IMDUR) 30 mg 24 hr tablet Take 30 mg by mouth once daily. (Patient not taking: Reported on 05/05/2023) predniSONE (DELTASONE) 1 mg tablet Take 1 mg by mouth once daily. (Patient not taking: Reported on 05/05/2023) citalopram hydrobromide (CELEXA) 10 mg tablet Take 10 mg by mouth once daily. TOUJEO MAX U-300 SOLOSTAR 300 unit/mL (3 mL) inpn Inject 70 Units subcutaneously daily at bedtime. (Patient not taking: Reported on 05/05/2023) insulin lispro (HUMALOG KWIKPEN INSULIN) 100 unit/mL Inject 32 Units subcutaneously twice daily. (Patient not taking: Reported on 05/05/2023) metoprolol succinate ER (TOPROL XL) 25 mg 24 hr tablet Take 50 mg by mouth once daily. (Patient not taking: Reported on 05/05/2023) atorvastatin (LIPITOR) 40 mg tablet Take 20 mg by mouth once daily. levothyroxine (SYNTHROID) 25 mcg tablet Take 50 mcg by mouth once daily. lisinopril (ZESTRIL, PRINIVIL) 10 mg tablet Take 10 mg by mouth once daily. (Patient not taking: Reported on 05/05/2023) PAST MEDICAL HISTORY: PAST MEDICAL HISTORY Diagnosis Date Anxiety and depression Chronic a-fib (HCC) Chronic kidney disease no dialysis. Dr. Montgomery in [place] Congestive heart failure (HCC) DM (diabetes mellitus) (HCC) PCP follows Dyslipidemia Heart attack (HCC) HTN (hypertension) Hypercholesterolemia Hypothyroidism PVD (peripheral vascular disease) (HCC) Renal mass (more content not included)...[facility]12-31-[facility] History of Present illness Narrative* Nikolai Connor PA-C - 06/18/2024 1:26 PM EST Images from the original note were not included. [facility] NEW PATIENT CLINIC NOTE SERVICE DATE: June 18, 2024 NAME: Elizabeth Modi CHIEF COMPLAINT: Hematuria HISTORY OF PRESENT ILLNESS: Elizabeth Modi is a 83 year old male an new patient here for The patient reports Hematuria with a few episodes of hematuria Will get Urine sample today for culture and cytology Schedule Cystoscopy at [place] And CT Urogram at [place] We discussed the need for full hematuria workup due to the Gross Blood in the urine. These tests and procedures will be ordered today. LUTS: EMPTIES COMPLETELY: Yes UTI: No and 1 past 12 months GROSS HEMATURIA: yes LABS: No results found for: "PSA" No results found for: "TESTOST" Hematocrit (%) Date Value 09/01/2022 45.3 12/24/2021 41.1 05/15/2020 43.5 12/10/2019 38.9 09/09/2019 27.5 09/08/2019 27.0 No results found for: "PSA" Creatinine Date Value Ref Range Status 06/18/2024 1.37 (H) 0.73 - 1.22 mg/dL Final 09/01/2022 2.01 (H) 0.73 - 1.22 mg/dL Final 12/24/2021 1.55 (H) 0.50 - 1.40 mg/dL Final Comment: Patients receiving either N-Acetylcysteine (NAC) or Metamizole prior to venipuncture, may have falsely depressed results. MEDICATIONS: iv contrast (will be provided with radiology test) CT Urogram WO/W Inject, intravenously, once for 1 dose.No IV access, insert saline lock prior to the beginning of sedation, infusion, injection of imaging exam. Discontinue saline lock post exam. If Pt. has a central line or IVAD, may access for administration according to line specific nursing protocol. Once exam is complete flush line and de-access according to line specific nursing protocol in the CT contrast administration guidelines link. 0.9 % sodium chloride (NACL 0.9%) infusion Inject 150 mL/hr intravenously one time only for 1 dose.Administer at rate defined per CT contrast administration specifications. To be provided with radiology test. keTORolac (ACULAR) 0.5 % ophthalmic solution glipiZIDE (GLUCOTROL XL) 2.5 mg 24 hr tablet mupirocin (BACTROBAN) 2 % ointment pantoprazole DR (PROTONIX) 40 mg tablet apixaban (ELIQUIS) 2.5 mg tab(s) 2.5 mg once daily. acetaminophen (TYLENOL) 325 mg tablet Take 650 mg by mouth. aspirin 81 mg chewable tablet Take 81 mg by mouth. amiodarone (PACERONE) 200 mg tablet 200 mg once daily. carvedilol (COREG) 3.125 mg tablet carvedilol 3.125 mg tablet 1 tab po BID empagliflozin (JARDIANCE) 25 mg tablet Jardiance 25 mg tablet 1 tab po daily sacubitril-valsartan (ENTRESTO) 24-26 mg tablet Entresto 24 mg-26 mg tablet 1 tab po BID insulin aspart U-100 (NOVOLOG) 100 unit/mL Novolog U-100 Insulin aspart 100 unit/mL subcutaneous solution sliding scale NOVOLOG U-100 INSULIN ASPART 100 unit/mL polyethylene glycol 3350 17 gram packet Take 17 g by mouth once daily. Dissolve dose in 4 - 8 ounces of liquid and take as directed. multivit-min/iron/folic acid/K (ADULTS MULTIVITAMIN ORAL) Take by mouth. vit C,Z-Ye-mnvfi-lutein-zeaxan (PRESERVISION AREDS-2) 250-90-40-1 mg Take 1 Each by mouth. insulin lispro (HUMALOG) 100 unit/mL injection Inject subcutaneously before meals and at bedtime. SSI- if BS- 201-250= 3 units If BS- 251-300= 6 units If BS- 301-350= 9 units If BS- 351-400= 12 units Call MD for BS <70>400 (Patient not taking: Reported on 05/05/2023) isosorbide mononitrate ER (IMDUR) 30 mg 24 hr tablet Take 30 mg by mouth once daily. (Patient not taking: Reported on 05/05/2023) predniSONE (DELTASONE) 1 mg tablet Take 1 mg by mouth once daily. (Patient not taking: Reported on 05/05/2023) citalopram hydrobromide (CELEXA) 10 mg tablet Take 10 mg by mouth once daily. TOUJEO MAX U-300 SOLOSTAR 300 unit/mL (3 mL) inpn Inject 70 Units subcutaneously daily at bedtime. (Patient not taking: Reported on 05/05/2023) insulin lispro (HUMALOG KWIKPEN INSULIN) 100 unit/mL Inject 32 Units subcutaneously twice daily. (Patient not taking: Reported on 05/05/2023) metoprolol succinate ER (TOPROL XL) 25 mg 24 hr tablet Take 50 mg by mouth once daily. (Patient nottaking: Reported on 05/05/2023) atorvastatin (LIPITOR) 40 mg tablet Take 20 mg by mouth once daily. levothyroxine (SYNTHROID) 25 mcg tablet Take 50 mcg by mouth once daily. lisinopril (ZESTRIL, PRINIVIL) 10 mg tablet Take 10 mg by mouth once daily. (Patient not taking: Reported on 05/05/2023) PAST MEDICAL HISTORY: PAST MEDICAL HISTORY Diagnosis Date Anxiety and depression Chronic a-fib (HCC) Chronic kidney disease no dialysis. Dr. Montgomery in [place] Congestive heart failure (HCC) DM (diabetes mellitus) (HCC) PCP follows Dyslipidemia Heart attack (HCC) HTN (hypertension) Hypercholesterolemia Hypothyroidism PVD (peripheral vascular disease) (HCC) Renal mass PAST SURGICAL HISTORY: PAST SURGICAL HISTORY Procedure Laterality Date ANES RADICAL RESECJ INCL BELOW KNEE AMPUTATION Left 2020 ELBOW SURGERY HX Right 60'S PAST SURGICAL HISTORY OF Right 09/05/2019 Revision Rt BKA PAST SURGICAL HISTORY OF 1963 TEETH PULLED REMV CATARACT EXTRACAP,INSERT LENS Right TONSILLECTOMY HX A CHILD VASCULAR SURGERY PROCEDURE Right 12/09/2019 Irrigation and debridement of right lower extremity wound with placement of wound VAC. FAMILY HISTORY: FAMILY HISTORY Problem Relation Age of Onset Diabetes Father Heart Attack Father Diabetes Brother SOCIAL HISTORY: Social Connections: Not on file REVIEW OF SYSTEMS: GENERAL: No fever, chills, weight loss, or fatigue. ENMT: Negative CARDIOVASCULAR:NO CHEST PAIN, PALPITATIONS, ANKLE EDEMA RESPIRATORY: No chronic cough, wheezing, dyspnea, hemoptysis. GENITOURINARY: SEE HPI MUSCULOSKELETAL:NO CHRONIC BACK PAIN, ARTHRITIS, CHRONIC NECK PAIN SKIN: NO VARICOSE VEINS, RASH, ABNORMAL ITCHING HEME/LYMPH/IMMUNE:Negative for prolonged bleeding, bruising easily or swollen nodes NEUROLOGICAL: NO HEADACHES, NUMBNESS, SEIZURES, STROKE DIABETES: No All other systems reviewed and are negative PHYSICAL EXAMINATION: There were no vitals taken for this visit. GENERAL: WNL nutrition, no deformities, healthy appearing NEURO: Awake, alert and oriented x 3 and Normal gait PSYCH: No signs of depression, anxiety, or agitation ENMT (Ear, Nose, Mouth, Throat): No masses, adenopathy, icterus. Thyroid nonpalpable RESP: NL effort, no retractions or purse-lip breathing. CV: No extremity swelling, varices, edema, pallor, erythema GASTROINTESTINAL: Soft, nontender, nondistended, no masses. HERNIAS: None SKIN: No rash, lesions No palpable lymphadenopathy MUSCULOSKELETAL: Extremities normal. No deformities, edema, clubbing or skin discoloration. PROBLEM LIST REVIEW: Yes LABS: Results for orders placed or performed in visit on 08/02/23 URINE CULTURE Specimen: Urine (Nonspecific); Urine Random Result Value Ref Range Culture, Urine <10,000 CFU/ml Yeast (A) Urine Culture: Pending Urine Cytology: Pending IMAGING: CT Urogram ASSESSMENT/PLAN: 1. Screening for genitourinary condition - ICD9: V81.6, ICD10: Z13.89 (primary diagnosis) 2. Gross hematuria - ICD9: 599.71, ICD10: R31.0 > Hematuria work up ordersw in New Diagnosis of unknown prognosis testing to follow > 3 mo Follow-up with JAJA Cocuh MT, PA-C after testing JAJA Stewart MT, PA-C documented [facility] Evaluation note* Diagnosis Onset Date Resolution Status Admit Date Fecal incontinence acute Decemb er 2023 3:30pm S/P ERCP chronic June 06, 2024 3:30pm Fecal incontinence acute September 06, 2024 1:38pm S/P ERCP chronic September 06 1:38pm [facility] Work Phone: 1(335) 150-723502-18-2024 Note. MICRO - Microbiology PROCEDURE: Blood Culture (bacterial) [*1] SOURCE: Blood BODY SITE: COLLECTED DATE/TIME: 08/01/2023 13:30 EST RECEIVED DATE/TIME: 08/01/2023 19:50 EST START DATE/TIME: 08/01/2023 19:50 EST FREE TEXT SOURCE: FINAL REPORTS Final Report [] Verified Date/Time/Personnel: 08/06/2023 19:59 EST Blood Culture: No Growth at 5 days. PRELIMINARY REPORTS Preliminary Report [] Verified Date/Time/Personnel: 08/01/2023 20:59 EST Culture has been received in lab and is no growth to date. Routine cultures are held for 5 days. Performing Locations *1: This test was performed at: [address], [facility] , [facility] ([place])08-04-2023 Note. MICRO - Microbiology PROCEDURE: Blood Culture (bacterial) [*1] SOURCE: Blood BODY SITE: COLLECTED DATE/TIME: 08/01/2023 13:15 EST RECEIVED DATE/TIME: 08/01/2023 19:50 EST START DATE/TIME: 08/01/2023 19:50 EST FREE TEXT SOURCE: FINAL REPORTS Final Report [] Verified Date/Time/Personnel: 08/04/2023 10:48 EST Staphylococcus coagulase negative Isolated from aerobe and anaerobe bottles. Staphylococcus coagulase negative #2 Isolated from aerobe bottle only. 1 out of 2 sets positive Organism is a potential contaminant. Clinical Significance undetermined. Please contact Microbiology if further work-up is required. PRELIMINARY REPORTS Preliminary Report [] Verified Date/Time/Personnel: 08/01/2023 20:59 EST Culture has been received in lab and is no growth to date. Routine cultures are held for 5 days. STAINS GSANA [] Verified Date/Time/Personnel: 08/03/2023 14:22 EST Gram Positive Cocci GSAER [] Verified Date/Time/Personnel: 08/02/2023 13:40 EST Gram Positive Cocci in clusters Performing Locations *1: This test was performed at: [address], [facility] , [facility] ([place])04-16-2023 Note. MICRO - Microbiology PROCEDURE: Culture Wound Aerobic with Gram Stain [*1] SOURCE: Abscess BODY SITE: Chest COLLECTED DATE/TIME: 04/14/2023 12:09 EDT RECEIVED DATE/TIME: 04/14/2023 18:45 EDT START DATE/TIME: 04/14/2023 18:45 EDT FREE TEXT SOURCE: Chest Wall Abscess FINAL REPORTS Final Report [] Verified Date/Time/Personnel: 04/16/2023 09:43 EDT No growth at 48 hours. PRELIMINARY REPORTS Preliminary Report [] Verified Date/Time/Personnel: 04/15/2023 12:54 EDT No growth to date STAINS GS [] Verified Date/Time/Personnel: 04/14/2023 19:14 EDT 4+ White Blood Cells 2+ Gram Positive Cocci Performing Locations *1: This test was performed at: [address], [facility] , [facility] ([place])03-27-2023 Miscellaneous Notes* Telephone Encounter - Ammy Bradshaw - 03/27/2023 1:44 PM EDT Referral received M for [place] to call and schedule appt. Ammy Bradshaw documented in this encounterReg[facility]03-21-2023 Miscellaneous Notes* Telephone Encounter - Quan Iraheta DO - 09/06/2022 5:03 PM EDT Spoke with patient's nurse at [facility]. Counseled to taper prednisone by 2.5mg weekly and then stop. Also alerted caregiver to elevated Creatinine of 2.01 (most recent Cr per nursing facility was 1.8 07/2022) Nurse to communicate above recommendations and findings to primary physician at the nursing facility, Dr. Salmeron. Also spoke with the patient Elizabeth Modi regarding no evidence of GCA and the plan to taper steroids. Patient in agreement with the plan. documented in this encounterRegency [facility]03-21-2023 Miscellaneous Notes* Telephone Encounter - Quan Iraheta DO - 09/06/2022 12:47 PM EDT Attempted to speak with a provider for Mr. Modi at [facility] to career guidance counselor prednisone taper of 2.5mg q week based upon rheumatology and ophthalmology evaluation not c/w GCA. Phone rang without answer x 2. Will attempt to call again this afternoon. 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 No Giant cell arteritis symptoms at that date - History unclear, but per patient, his vision improved after cataract surgery, but then decreased. - Only Ophthalmology note was with Dr. Vicente. Had Optic nerve edema both eyes, was sent to ER for MRA/MRA brain and orbits (not available) - Has had decreased vision both eyes since 02/2021 per patient with limited improvement Workup: - Sp TAB 12/24/2021 left and right, negative for Giant cell arteritis. (Unsure how long after starting steroids) - Hep B, Hep C, vitrectomy D, CBC, CRP, ESR (09/01/2022 - pending) ROS: - ROS - Negative. 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 But endorses heavy alcohol use in the past (approx4-10 drinks per day). Drug Use- None Pets/animals- Dogs, groundhog Foreign travel- None STDs- None Incarcerations- None Imaging: - OCT mac 09/01/2022: Atrophy both eyes, dry both eyes - FFA 09/01/2022: Window defects both eyes, no leakage. No clear choroidal non perfusion - transit is right eye. Arterial flow by 39 sec (no earlier frames), patchy choroidal filling at this point, flow by 55 sec. No persistent choroidal flow deficits - FAF 09/01/2022: Central atrophy with hypo AF, angioid like streaks both eyes from optic nerve head. 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 There is not clear evidence of GCA at this point and enough other signs to point to NAION (vascular risk factors) - I would consider slow taper of prednisone, depending on ESR and CRP Pseudophakia OD - 02/09/2021 - Observe Diabetes mellitus Lab Results Component Value Date HBA1C 8.0 07/13/2022 HBA1C 7.1 02/15/2022 HBA1C 8.8 12/02/2021 HBA1C 9.8 08/23/2019 - No Diabetic retinopathy, no neovascularization elsewhere/neovascularization of the disc on fundusfluorescein angiography - Observation Cataract left eye - Likely visually significant, but vision may also be limited by optic nerve atrophy and some macular atrophy - Being assessed for cataract surgery at [facility] Age related macular degeneration - Smoking history: Quit in ; Family history: NA - Amsler grid and AREDS2 use reviewed. RTC warning signs reviewed RIGHT EYE - Atrophy centrally LEFT EYE - Atrophy centrally F/U - 1 year I have confirmed and edited as necessary the relevant ophthalmic history, ROS, and the neuro exam findings as obtained by others. I have seen and examined this patient. I have discussed the case and the management of this patient's care with the Resident/Fellow, if applicable. I also have reviewed and agree with the assessment and plan as stated above and agree withall of its relevant components. Terence Phelps MD September 01, 2022 3:05 PM documented in this encounterRegency [facility]03-16-2023 Instructions* Patient Instructions* Shana Delgado MD - 09/01/2022 10:54 AM EDT Labs on the first floor today Eye exam today in [facility] Continue prednisone dose as is pending labs and eye evaluation documented in this encounterRegency [facility]03-16-2023 History of Present illness Narrative* Shana Delgado MD - 09/01/2022 10:04 AM EDT Elizabeth Modi is a 82 year old male. Consultation was requested by Dr. Lucas for an opinion regarding GCA; my final assessment and recommendations will be communicated back to the requesting physician by way of shared medical record, or by letter via fax or US mail or telephone call. Evaluation Date: 09/01/2022 Chief Complaint: Decreased vision, photosensitivity HPI: Elizabeth Modi is a very pleasant 82 yo male with a past medical history notable for bilateral cataracts, long-standing type 2 diabetes, tobacco use disorder (quit ), peripheral vascular disease s/p bilateral BKA, CKD, and NJ s/p CABG who presents for evaluation of GCA in the setting of bilateral decreased vision associated with photosensitivity. Primary concern is vision loss which started several years ago Vision loss is worse in the light, in a dark him his vision feels fine The light "bothers him" but isn't exactly painful Right cataract surgery initially helped a lot, but about 1-2 months later his vision worsened Left eye vision has remained abnormal but stable, never had cataract surgery in the left eye Prior to the temporal artery biopsy in December 2021: No headaches, no temporal pain, no pain or tiredness with chewing Able to use his arms without them getting tired No muscle aches or pains Vascular surgery at [facility]: Left temporal artery biopsy 12/24/2021 A. Left temporal artery, biopsy: - Mild calcific arteriosclerotic vascular disease. - No evidence of giant cell or other type arteritis. B. Right temporal artery, biopsy: - Calcific arteriosclerotic vascular disease. - No evidence of giant cell or other type arteritis. About 1 week after the TAB, he had a heart attack. Underwent open heart, not sure how many vessels Eye doctor Dr. Lucas at [facility] sent him to [facility] for GCA evaluation [phone], Currently on prednisone 10mg daily since 02/28/2022 per the nursing facility Presumably received high dose oral steroids at the time of temporal artery biopsy 12/2021? CTA abd/pelvis/lower extremities 02/28/2020: Abdominal Aorta: Mild diffuse atherosclerotic disease. tortuous infrarenal aorta but no aneurysmal dilation. Mesenteric vessels: Mild narrowing at the origin of the celiac trunk as it passes through the diaphragmatic hiatus. Dense atherosclerotic plaque at the origin of the SMA with distal reconstitution of flow. Renal arteries: Mild calcifications at the origin of the renal arteries but no significant stenosis. Accessory artery on the inferior left renal pole is patent. Iliac arteries:Mild focal narrowing at the proximal left common iliac artery with minimal luminal diameter of 0.7 cm. Otherwise, moderate diffuse atherosclerotic disease of the common iliac and internal iliac arteries but no occlusion or significant stenosis. Right: Below the knee amputation. - External Iliac: No significant stenosis. - Common femoral: Postsurgical changes in the right inguinal region - Deep Femoral: Moderate atherosclerotic calcification the origin. Maintained opacification distally. - Superficial Femoral: Occluded at the origin. Prominent deep collaterals. - Popliteal: Dense atherosclerotic calcifications and occlusion. - Tibioperoneal trunk: Reconstitution of flow - Posterior tibial: Diffuse atherosclerotic plaque. - Peroneal: Diffuse atherosclerotic plaque - Anterior tibial: Diffuse atherosclerotic plaque - Dorsalis pedis: N/A Left: - External Iliac: Mild focal narrowing at the distal segment. - Common femoral: Moderate atherosclerotic plaque and focal narrowing. - Deep Femoral: Maintaining opacification, moderate diffuse atherosclerotic disease. - Superficial Femoral: Proximal occlusion - Popliteal: Dense atherosclerotic plaque. Reconstitution of flow related to collateral above the knee - Tibioperoneal trunk: Diffuse atherosclerotic plaque and severe narrowing - Posterior tibial: Diffuse atherosclerotic plaque but maintained distal flow. - Peroneal: Maintaining opacification - Anterior tibial: Diffuse atherosclerotic plaque and trickle flow the study. - Dorsalis pedis: Incompletely opacified and maintaining opacification of the plantar arch. ROS GENERAL: negative for: night sweats fatigue FEVER: none WEIGHT CHANGE: has regained some weight recently (initially didn't like the food at the alf) HEAD: negative for, scalp tenderness, jaw claudication, headache, tongue claudication, temporal tenderness ENT: hearing loss started around , worse in the left ear EYES: cataracts in both eyes, s/p catarct surgery in the right eye around 2020 NECK: negative for, mass bilateral, pain, swelling RESPIRATORY: negative for, cough, hemoptysis, shortness of breath. + SOB 1 month ago, resolved CARDIOVASCULAR: negative for, extremity claudication, digital ischemia + intermittent chest pain at the site of sternotomy GASTROINTESTINAL: no abdominal pain, no melanotic stools, abdominal pain, nausea, and vomiting URINARY: negative for, dysuria, hematuria MUSCULOSKELETAL: Occasional left shoulder pain NEUROLOGIC: negative for, numbness, weakness. SKIN: negative for, rash, nodules MOOD/PSYCHIATRIC: negative for, sleep disturbance, mood disorder HEMATOLOGIC/LYMPHATIC/IMMUNOLOGIC: + easy bruising PAST MEDICAL HISTORY: PAST MEDICAL HISTORY Diagnosis Date Anxiety and depression Chronic a-fib (HCC) Chronic kidney disease no dialysis. Dr. Montgomery in [place] Congestive heart failure (HCC) DM (diabetes mellitus) (HCC) PCP follows Dyslipidemia Heart attack (HCC) HTN (hypertension) Hypercholesterolemia Hypothyroidism PVD (peripheral vascular disease) (HCC) Renal mass PAST SURGICAL HISTORY: PAST SURGICAL HISTORY Procedure Laterality Date ANES RADICAL RESECJ INCL BELOW KNEE AMPUTATION Left 2020 ELBOW SURGERY HX Right 60'S PAST SURGICAL HISTORY OF Right 09/05/2019 Revision Rt BKA PAST SURGICAL HISTORY OF 1963 TEETH PULLED REMV CATARACT EXTRACAP,INSERT LENS Right TONSILLECTOMY HX A CHILD VASCULAR SURGERY PROCEDURE Right 12/09/2019 Irrigation and debridement of right lower extremity wound with placement of wound VAC. CURRENT MEDICATIONS: Current Outpatient Medications Medication Sig apixaban (ELIQUIS) 2.5 mg tab(s) 2.5 mg once daily. acetaminophen (TYLENOL) 325 mg tablet Take 650 mg by mouth. aspirin 81 mg chewable tablet Take 81 mg by mouth. amiodarone (PACERONE) 200 mg tablet 200 mg once daily. carvedilol (COREG) 3.125 mg tablet carvedilol 3.125 mg tablet 1 tab po BID empagliflozin (JARDIANCE) 25 mg tablet Jardiance 25 mg tablet 1 tab po daily sacubitril-valsartan (ENTRESTO) 24-26 mg tablet Entresto 24 mg-26 mg tablet 1 tab po BID insulin aspart U-100 (NOVOLOG) 100 unit/mL Novolog U-100 Insulin aspart 100 unit/mL subcutaneous solution sliding scale NOVOLOG U-100 INSULIN ASPART 100 unit/mL polyethylene glycol 3350 (MIRALAX) 17 gram packet Take 17 g by mouth once daily. Dissolve dose in 4- 8 ounces of liquid and take as directed. multivit-min/iron/folic acid/K (ADULTS MULTIVITAMIN ORAL) Take by mouth. insulin lispro (HUMALOG) 100 unit/mL injection Inject subcutaneously before meals and at bedtime. SSI- if BS- 201-250= 3 units If BS- 251-300= 6 units If BS- 301-350= 9 units If BS- 351-400= 12 units Call MD for BS <70>400 isosorbide mononitrate ER (IMDUR) 30 mg 24 hr tablet Take 30 mg by mouth once daily. citalopram hydrobromide (CELEXA) 10 mg tablet Take 10 mg by mouth once daily. TOUJEO MAX U-300 SOLOSTAR 300 unit/mL (3 mL) inpn Inject 70 Units subcutaneously daily at bedtime. insulin lispro (HUMALOG KWIKPEN INSULIN) 100 unit/mL Inject 32 Units subcutaneously twice daily. atorvastatin (LIPITOR) 40 mg tablet Take 20 mg by mouth once daily. levothyroxine (SYNTHROID) 25 mcg tablet Take 50 mcg by mouth once daily. lisinopril (ZESTRIL, PRINIVIL) 10 mg tablet Take 10 mg by mouth once daily. predniSONE (DELTASONE) 1 mg tablet Take 1 mg by mouth once daily. metoprolol succinate ER (TOPROL XL) 25 mg 24 hr tablet Take 50 mg by mouth once daily. (Patient not taking: Reported on 09/01/2022) No current facility-administered medications for this visit. ALLERGIES: Patient has no known allergies. SOCIAL HISTORY: FAMILY HISTORY: FAMILY HISTORY Problem Relation Age of Onset Diabetes Father Heart Attack Father Diabetes Brother PHYSICAL EXAMINATION BP 135/68 Pulse 66 Temp 36.5 C (97.7 F) (Oral) GENERAL APPEARANCE: well SKIN: normal without rashes or lesions HEAD: normal; temporal arteries with normal pulsation without nodularity or tenderness. Well-healedtemporal incisions. EYES: PERRL, EOM'S INTACT. + conjunctival v scleral injection bilaterally with watering to light exposure No conjunctival discharge EARS: External ears normal NOSE/SINUSES: normal, nasal mucosal inflammation, nasal ulcers, nasal crusts, bloody nasal mucosa, septal perforation, saddle-nose deformity OROPHARYNX: no oral lesions present, no oral ulcers. NECK: Supple; good ROM. LUNGS: clear HEART: RRR, no gallops, rubs or murmurs ABDOMEN: soft, non-tender, normal BS, no organomegaly or masses MUSCULOSKELETAL: Negative for joint or muscle pain or swelling. Bilateral BKA without lesions or wounds. VASCULAR EXAM Carotid: normal and equal bilaterally Subclavian: no bruit auscultated bilaterally Brachial: normal and equal bilaterally Radial: normal and equal bilaterally Popliteal palpable bilaterally. NEURO: Hard of hearing with conversation, fluent speech, following commands and moving all extremities. Able to sit himself up in the wheelchair. ASSESSMENT: (H53.9) Vision changes (primary encounter diagnosis) (L56.8) Photosensitivity (I73.9) PVD (peripheral vascular disease) ([facility]) (E11.69) Type 2 diabetes mellitus with other specified complication, without long-term current use of (Z79.52) manager terminal current use of systemic steroids (E55.9) Vitamin D deficiency Elizabeth Modi is a very pleasant 82 yo male with a past medical history notable for bilateral cataracts, long-standing type 2 diabetes, tobacco use disorder (quit ), peripheral vascular disease s/p bilateral BKA, CKD, hearing loss, and NJ s/p CABG who presents for evaluation of GCA in the setting of bilateral decreased vision associated with photosensitivity. This is a very pleasant 82 yo male with numerous cardiovascular risk factors presenting in the context of decreased vision with photosensitivity. Based upon the history that was obtained from the patient and alf caregiver today, he has not endorsed GCA type symptoms such as constitutional symptoms, headaches, temporal pain or tenderness, jaw or limb claudication but his predominant complaint has been decreased vision for several years, though with initial 1-2 month long improvement in the right eye vision following cataract surgery in 2020. His exam today is notable for conjunctival v scleral injection, photosensitivity, and subjective improvement in his vision with turning off the lights. No prior visible inflammatory markers thought at this point he has been on at least 7 months of prednisone 10mg daily. Discussed completing inflammatory markers and requested a same day ophthalmologyexam with which the patient was in agreement. Plan: Referral to ophthalmology clinic today Continue current prednisone 10mg daily pending ophthalmology evaluation and completion of labs ESR, CRP, CBC, CMP, Hep/TB Counseled to reach out regarding any change in clinical status or with concerns. Follow-up based upon above studies. Zack Iraheta DO PGY5 Rheumatology Fellow Pager [phone] The above patient was seen and examined with the attending physician, Dr. Rhiannon Delgado. Rheumatology Staff I have reviewed the history and physical examination obtained and documented by the fellow and I personally participated in the loera components. I have discussed the case and management of the patient's care with the fellow. The above plan reflects my recommendations Shana Burton MD Addendum : likely NAION due to disc appearance at risk and multiple vascular risk factors by eye exam we will taper prednisone . No evidence of giant cell arteritis Shana Burton MD documented in this encounterReg[facility]08-[facility]-2022 Note ORIGINAL EXAMINATION: TWO XRAY VIEWS OF THE CHEST 01/17/2022 3:20 pm COMPARISON: Chest x-ray on 01/13/2022 HISTORY: ORDERING SYSTEM PROVIDED HISTORY: Reason for Exam: pleural effusion FINDINGS: Patient has had sternotomy the heart size is normal. A small left pleural effusion is still present with mild atelectasis in left lower lobe. Right lung is well aerated with no infiltrate or pleural fluid. There is no pneumothorax. There are mild degenerative changes in the thoracic spine with no acute skeletal abnormality. IMPRESSION: Unchanged small left pleural effusion and mild left lower lobe atelectasis. Interpreted by: Scotty Fenton MD Preliminary Report By: Scotty Fenton MD Electronically signed By Scotty Fenton MD Dictated Date: 01/17/2022 11:56:43 PM Prelim Date: 01/17/2022 11:59:11 PM Sign Date: 01/17/2022 11:59:11 PM Ordering [id number] Note ORIGINAL EXAMINATION: TWO XRAY VIEWS OF THE CHEST 01/17/2022 3:20 pm COMPARISON: Chest x-ray on 01/13/2022 HISTORY: ORDERING SYSTEM PROVIDED HISTORY: Reason for Exam: pleural effusion FINDINGS: Patient has had sternotomy the heart size is normal. A small left pleural effusion is still present with mild atelectasis in left lower lobe. Right lung is well aerated with no infiltrate or pleural fluid. There is no pneumothorax. There are mild degenerative changes in the thoracic spine with no acute skeletal abnormality. IMPRESSION: Unchanged small left pleural effusion and mild left lower lobe atelectasis. Interpreted by: Scotty Fenton MD Preliminary Report By: Scotty Fenton MD Electronically signed By Scotty Fenton MD Dictated Date: 01/17/2022 11:56:43 PM Prelim Date: 01/17/2022 11:59:11 PM Sign Date: 01/17/2022 11:59:11 PM Ordering Provider: [facility]07-28-2022 Note Discharge Instructions Thank you for allowing [facility] to assist you with your healthcare needs. The following is importantdischarge information regarding your hospital visit. Your Diagnosis CAD (coronary artery disease) EF 45-50% S/P CABG 1 01/05/2022 NSTEMI (non-ST elevated myocardial infarction) Acute blood loss anemia QUIN (acute kidney injury) CKD (chronic kidney disease), stage III AF (paroxysmal atrial fibrillation) Diabetes Hgb A1c 8.4% HTN (hypertension) HLD (hyperlipidemia) Hypothyroid Giant cell arteritis s/p temporal artery biopsy 12/24/2021 PVD (peripheral vascular disease) s/p bilateral BKA 2019 Mood disorder History of Singh's palsy Leukocytosis Pleural effusion, left Acute pain What to do next Scheduled Follow-Up Appointments Appointment Type When With Where Contact InformationCTS OV Post Op 01/17/2022 01:00 PM EDT HUNTER FALCON CARDIOGRAPHER-NAIL ARTIST [facility] Cardiothoracic Surgery [facility] Hospital Follow Up 02/15/2022 10:00 AM EDT [facility] Follow Up Appointments Follow Up with KARL HIDALGO MD When 02/15/2022 10:00 AM EDT Where: [address] [facility] [place] [address]- Follow Up with HUNTER FALCON APRN-GURWINDER When 01/17/2022 01:30 PM EDT Why: please obtain a CXR 1 hour prior to your appt. Where: [address] [facility] [place] [address]- Follow Up with Discharge to Its Time Compliance [facility] LOC [phone] When Within 1-2 days Follow Up with Cardiac Rehab- [facility] When Why: The Cardiac Rehab department will call you to schedule you for phase 2. We left you a brochurewith information about cardiac rehab. If you have any questions please call [phone]. Where: [facility] [address] [place] [address]- The Following Activity and Diet Have Been Ordered for You Transfer of Care Activity - Ordered -- Lifting Restricted less than 10 pounds Driving Restricted October Shower, 01/13/22 10:45:00 EDT Transfer of Care Diet - Ordered -- Type of Diet: Regular Diet, Diet Restrictions: Cardiac diet, Calories Permitted: 1800 kcal, 01/13/22 10:45:00 EDT The Following Equipment Has Been Ordered for You Discharge Home Equipment Transfer of Care Wound Care - Ordered -- Dressing Type: Elastoplast drsg, Wash chest incision daily with antibacterial soap and water., 01/13/22 10:45:00 EDT The Following Treatments Have Been Ordered for You Discharge Labs Transfer of Care Labwork - Ordered -- bmp., cbc weekly, Anemia, electrolyte imbalance, 01/13/22 10:45:00 EDT Discharge Radiology Transfer of Care Radiology - Ordered -- PA and lateral chest x-ray, Pleural effusions, Please arrive at least 1 hour prior to your appointment time with your heart surgeon and have chest x-ray done at [facility]., 01/13/22 10:45:00 EDT Other Therapies Transfer of Care OT - Ordered -- Reason for therapy: General debility, 01/13/22 10:45:00 EDT Transfer of Care PT - Ordered -- Reason for therapy: General debility, 01/13/22 10:45:00 EDT Post Acute Orders Transfer of Care Admission Level of Care - Ordered -- Level of Care -Intermmediate, 01/13/22 10:45:15 EDT Transfer of Care Code Status - Ordered -- Full Code, Constant Order Transfer of Care Labwork - Ordered -- bmp., cbc weekly, Anemia, electrolyte imbalance, 01/13/22 10:45:00 EDT Transfer of Care Orders Electronically Signed By - Ordered -- 01/13/22 10:45:00 EDT, TRINY HERNANDEZ MD Transfer of Care Oxygen Therapy - Ordered -- Oxygen (CONTINUOUS), Nasal Cannula, 2 liters per minute, 3 month(s), As needed to maintain SaO2 greater than 92%, 01/13/22 10:45:00 EDT Transfer of Care Prognosis - Ordered -- Good, Patient Aware: Yes Transfer of Care Rehab Potential - Ordered -- Rehab potential fair-Has Bilat. YATESA, 01/13/22 10:45:15 EDT Someone Will Contact You Regarding These Home Health Referrals No home referrals have been ordered for you. No one will call you. Allergies NKA Medications Please ask your primary doctor or pharmacist before taking any other medication not listed, including over the counter drugs, herbal medications, vitamins and or supplements as they may interact withyour home medications. What How Much When Why Instructions Last Dose New acetaminophen 650 Milligram by mouth Every 4 hours as needed for Pain, scale 1-3 New amLODIPine (amLODIPine 5 mg oral tablet) 1 tab(s) by mouth Two (2) times a day Refills: 2 Printed Prescription New aspirin (aspirin 81 mg oral delayed release tablet) 1 tab(s) by mouth Once a day with a meal New empagliflozin (Jardiance 10 mg oral tablet) 1 tab(s) by mouth Once a day (in the morning) New metFORMIN (MetFORMIN (Eqv-Glucophage XR) 500 mg oral tablet, EXTENDED RELEASE) 1 tab(s) by mouth Two (2) times a day New multivitamin with iron (Vitamin B Complex with C, Folic Acid, and Iron oral tablet) by mouth Once a day Duration: 14 Days New polyethylene glycol 3350 by mouth Once a day as needed for Constipation New traMADol (Ultram 50 mg oral tablet) 0.5 tab(s) by mouth Every 6 hours as needed for Pain, scale 7-10 CAD (coronary artery disease) EF 45-50% S/P CABG 1 01/05/2022 Acute pain Duration: 5 Days Printed Prescription Changed amiodarone (amiodarone 200 mg oral tablet) 2 tab(s) by mouth Two (2) times a day Take 400mg ( 2 tablets) twice a day through , then starting take 200mg ( 1 tablet) daily for 28 days Printed Prescription Changed apixaban (Eliquis 2.5 mg oral tablet) 1 tab(s) by mouth Two (2) times a day Changed atorvastatin (Lipitor 40 mg oral tablet) 1 tab(s) by mouth Once a day Changed insulin lispro (HumaLOG) (HumaLOG 100 units/ mL subcutaneous solution) Give 0-10 units/dose Subcutaneous Four (4) times daily-before meals and at bedtime Changed lisinopril (lisinopril 20 mg oral tablet) 2 tab(s) by mouth Once a day Changed metoprolol 6.25 Milligram by mouth Twice daily with meals Unchanged citalopram (citalopram 10 mg oral tablet) 1 tab(s) by mouth Once a day (in the morning) Unchanged levothyroxine (levothyroxine 50 mcg (0.05 mg) oral tablet) 1 tab(s) by mouth Once a day (in the morning) Unchanged predniSONE (predniSONE 10 mg oral tablet) 1 tab(s) by mouth Once a day What How Much When Comments Stop Taking insulin glargine (Toujeo Max SoloStar 300 units/ mL subcutaneous solution) 100 unit(s) Subcutaneous Daily at bedtime Stop Taking isosorbide mononitrate (isosorbide mononitrate 30 mg oral tablet, extended release) 0.5 tab(s) by mouth Once a day (in the morning) Please take this list to your next doctor s visit. Bring all medications you take, including over the counter medications, herbals and other supplements with you to your doctor s visit. Patients and families are reminded to discard old lists and to update any records with all medication providers or retail pharmacies. Additional Information VACCINATE! IT SAVES LIVES! Members of the community who have not yet received the COVID-19 vaccine and would like to receive it can visit one of [facility] vaccine clinics. There are many vaccine clinic locations within the [facility]. For locations and available times, please visit [email or web address] It is important to note that some COVID mobile vaccine clinics are held outdoors and may be canceled in rainy or stormy conditions. To learn more about pediatric vaccinations (ages 5-11), we invite you to visit the [facility] webpage. [email or web address] learn more about the COVID-19 vaccine, we invite you to visit the [facility] website for a list of frequently asked questions. [email or web address] Patient Portal Access Instructions: Stay connected with your healthcare team and access your personal medical information anytime with the [email or web address] Patient Portal.If you would like a full copy of your medical records, please contact the [facility] Medical Records Department, Monday through Monday between 8a.m. and 4:30p.m. Please follow the directions below to access the portal: 1.Access the email account you provided upon registration to the hospital.2.Look for an invitation email from [facility].3.Open the email and access the invitation link: Accept Invitation to [email or web address].Fill in the required rios to create your account. Sign into [email or web address] with your username and password that you created in the above steps to stay up to date. You can then view a summary of results, a summary of your visits, and the ability to download your summaries to your computer or send the information securely to a physician. Remember that your healthcare information is confidential, so carefully consider who you will allow to register on the [email or web address] Patient Portal for access to your information. You can also access the [email or web address] Patient Portal on the [employer] femi. Simply click on "Health Records" under "HealthData" and then click on the [employer] logo. HOW TO SAFELY DISPOSE OF PRESCRIPTION MEDICATIONS Please use one of the following methods to safely dispose of your unused medications. 1.Use a drug disposal kit: the drug disposal pouch allows you to safely discard your old and unuseddrugs. Ask your nurse to give you one when you are discharged.2.Visit a local take-back location: Many local pharmacies and police departments have programs that collect old and unwanted prescriptiondrugs. Call your local pharmacy or go to http://[email or web address]/0S0Vm7v to find one close to you.3.Make use of household items: Use cat litter or old coffee grounds to dispose medications if other options arenot available. Mix your drugs with these household products, seal them in an airtight container andthrow it into the garbage. Call [facility]: [phone] to be sure your drugs can be disposed of in this way. Some medicines may require a different approach.4.Never flush your medications down the toilet. IF YOU HAVE BEEN PRESCRIBED AN OPIOID FOR PAIN If you have been prescribed an opioid (such as hydrocodone, oxycodone or morphine), it is critical to understand the possible side effects and risks of opioid pain medications. Even when taken as directed, opioids can have several side effects including: Tolerance, meaning you might need to take more of a medication for the same pain relief. Nausea, vomiting and/or constipation. Sleepiness, dizziness, dry mouth, confusion, depression or itching. Physical dependence, meaning you have withdrawal symptoms when a medication is stopped, can develop within a few days. KNOW YOUR RESPONSIBILITIES It is important to know exactly how much and how often to take the opioid pain medications you are prescribed. Never take opioids in higher amounts or more often than prescribed. Do not combine opioids with alcohol or other drugs that cause drowsiness, such as benzodiazepines, also known as benzos, including diazepam and alprazolam, muscle relaxants or sleep aids. Never sell or share prescription opioids. This is illegal. Store opioids in a secure place and out of reach of others (including children, family, friends and visitors). The last page of this document has been signed and retained as a CHART COPY. Signatures Patient Education Materials Medication Leaflets My discharge plan and instructions have been reviewed and explained to me and ILY TERRY understand my current condition and have read and understand these discharge instructions. I have receiveda written copy of the plan/instructions. If I have questions, I am aware that I should contact my do ctor. 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 The heart size is at the upper limits of normal. There is ill-defined left basilar infiltrate that is unchanged. Mild haziness at the left lung base is likely due to pleural fluid but this is not clearly delineated. Right lung is well aerated. There is no pulmonary edema. No pneumothorax is visible. IMPRESSION: Unchanged left basilar infiltrate and left pleural effusion. Interpreted by: Scotty Fenton MD Preliminary Report By: Scotty Fenton MD Electronically signed By Scotty Fenton MD Dictated Date: 01/13/2022 6:26:27 AM Prelim Date: 01/13/2022 6:27:59 AM Sign Date: 01/13/2022 6:27:59 AM Ordering Provider: YIMI NEWELL [id number] Note ORIGINAL EXAMINATION: ONE XRAY VIEW OF THE CHEST 01/13/2022 6:10 am COMPARISON: Chest x-ray on 01/12/2022 HISTORY: ORDERING SYSTEM PROVIDED HISTORY: Reason for Exam: left pleural effusion FINDINGS: Left subclavian central venous catheter tip is in the superior vena cava. The heart size is at the upper limits of normal. There is ill-defined left basilar infiltrate that is unchanged. Mild haziness at the left lung base is likely due to pleural fluid but this is not clearly delineated. Right lung is well aerated. There is no pulmonary edema. No pneumothorax is visible. IMPRESSION: Unchanged left basilar infiltrate and left pleural effusion. Interpreted by: Scotty Fenton MD Preliminary Report By: Scotty Fenton MD Electronically signed By Scotty Fenton MD Dictated Date: 01/13/2022 6:26:27 AM Prelim Date: 01/13/2022 6:27:59 AM Sign Date: 01/13/2022 6:27:59 AM Ordering Provider: [facility]07-27-2022 Note ORIGINAL EXAMINATION: ONE XRAY VIEW OF THE CHEST 01/12/2022 7:09 pm COMPARISON: CT chest 01/10/2022. Chest x-ray 01/09/2022. HISTORY: ORDERING SYSTEM PROVIDED HISTORY: Reason for Exam: left PTX s/p thoracentesis FINDINGS: Left subclavian central venous catheter is in unchanged position. Median sternotomy wires are noted. Cardiomediastinal silhouette is unchanged. Atherosclerotic calcifications are noted within the aortic arch. There is been interval decrease in small left pleural effusion with mild residual hazy airspace opacity within the left lung base. Left mid lung subsegmental atelectasis or scarring. Small left pleural effusion suspected. Trace right pleural effusion with mild adjacent streaky airspace opacities within the right lung base. No pneumothorax identified on this exam. The osseous structures appear intact. IMPRESSION: Interval decrease in small left pleural effusion with mild residual hazy airspace opacity within the left lung base which may represent atelectasis. There is a residual small left pleural effusion. No pneumothorax identified on this exam. Trace right pleural effusion with mild adjacent atelectasis. I have personally reviewed the images of this examination and agree with the resident's findings and interpretation. Interpreted by: Sj Rosales MD Preliminary Report By: Cayetano Larson Electronically signed By Sj Rosales MD Dictated Date: 01/12/2022 7:25:41 PM Prelim Date: 01/12/2022 7:31:03 PM Sign Date: 01/12/2022 7:32:39 PM Ordering Provider: [facility]07-27-2022 Note ORIGINAL EXAMINATION: ONE XRAY VIEW OF THE CHEST 01/12/2022 7:09 pm COMPARISON: CT chest 01/10/2022. Chest x-ray 01/09/2022. HISTORY: ORDERING SYSTEM PROVIDED HISTORY: Reason for Exam: left PTX s/p thoracentesis FINDINGS: Left subclavian central venous catheter is in unchanged position. Median sternotomy wires are noted. Cardiomediastinal silhouette is unchanged. Atherosclerotic calcifications are noted within the aortic arch. There is been interval decrease in small left pleural effusion with mild residual hazy airspace opacity within the left lung base. Left mid lung subsegmental atelectasis or scarring. Small left pleural effusion suspected. Trace right pleural effusion with mild adjacent streaky airspace opacities within the right lung base. No pneumothorax identified on this exam. The osseous structures appear intact. IMPRESSION: Interval decrease in small left pleural effusion with mild residual hazy airspace opacity within the left lung base which may represent atelectasis. There is a residual small left pleural effusion. No pneumothorax identified on this exam. Trace right pleural effusion with mild adjacent atelectasis. I have personally reviewed the images of this examination and agree with the resident's findings and interpretation. Interpreted by: Sj Rosales MD Preliminary Report By: Cayetano Larson Electronically signed By Sj Rosales MD Dictated Date: 01/12/2022 7:25:41 PM Prelim Date: 01/12/2022 7:31:03 PM Sign Date: 01/12/2022 7:32:39 PM Ordering Provider: [facility] [id number] Note Date of Service 01/12/2022 Temporary A and V pacer wires discontinued. Patient tolerated well. Patient instructed to remain bedrest for 1 hour. Digitally Signed by YIMI NEWELL CARDIOGRAPHER-NAIL ARTIST on 01/12/2022 05:06 PM [id number] Note Date of Service 01/12/2022 Chief Complaint POD #7 This is an 81-year-old male with a past medical history of atrial fibrillation previously on Eliquis and amiodarone but well I just right stuff outside patient stopped but also. 1 year discontinued in August 2021 by his PCP, diabetes, hypothyroidism, mood disorder, peripheral vascular disease statuspost bilateral below the knee amputations in 2019, hyperlipidemia, hypertension, chronic kidney disease stage III with QUIN this admission, Singh's palsy and giant cell arteritis on prednisone. He resides at [facility]. He presented on 12/30/2021 with sudden onset of altered mental status and shortness of breath. Troponin 3577. Creatinine elevated 2.3. He was transferred to [facility] for fur ther evaluation. Echocardiogram completed showing EF of 45 to 50% with mild MR. Heart catheterization completed showing multivessel disease. Cleared by nephrology for surgery. On 01/05/2022 he underwent a coronary bypass graft x1 with MOLINA to the LAD per Dr. Hernandez. He tolerated the procedure well and was transferred to [facility] SICU in stable condition. Required Levophed for blood pressure support.Extubated on operative night. POD #1 up to the chair via Giles lift. Epinephrine weaned off. A paced at 80 with underlying sinus rhythm in the 60s. Transfer to stepdown. [facility] following for blood sugar management. POD #2 chest tubes discontinued. Hydrocortisone decreased. L isinopril initiated. Creatinine stabilizing. Initiated on Coumadin. He had an episode of atrial fibrillation placed on amiodarone protocol but only received oral. POD #3 heart rate less than 55 overnight requiring pacing. Currently atrial fibrillation rate 90. No beta-nicole secondary to episodes of bradycardia. POD #4 sinus rhythm. Lisinopril increased. INR 4.8. Coumadin held. Repeat INR 6.3 received Aquamephyton 10 mg subcu, repeat INR up to 9.1. Received an additional 2 doses of aquamephyton and FFP. Coumadin discontinued. We will resume Eliquis at a later date. POD #5, INR 2.8, remains hypertensive with systolic BP 159/65-179/73. Will initiate low-dose Lopressor at 6.25 mg, lisinopril increased to 40 mg daily, CT of the chest without contrast today. Postop day #6 CT of the chest shows bilateral small pleural effusions. On room air. Denies shortness of breath. Dr. Hernandez to ultrasound fluid on left chest today. Amlodipine added for hypertension. Remains in normal sinus rhythm. INR 1.7 today. [1] POD #7: Patient developed atrial fibrillation overnight but has since converted to normal sinus rhythm. Blood pressures have improved and currently 134/63-140/63. INR this morning 1.1. Patient had an episode of 2 sharp pain in his heart while laying in bed. EKG reviewed and showing normal sinus rhythm. Potassium 4.1 and magnesium 1.8. DC temporary pacer wires. Bedside ultrasound completed by Dr. Hernandez with plans of performing a bedside left- sided thoracentesis later on this evening. Subjective Patient resting comfortably in bed. Reports 2 recent sharp pains "in my heart" while laying in bed. Objective Vitals and Measurements T: 36.6 C (Oral) TMIN: 36.6 C (Oral) TMAX: 36.9 C (Oral) HR: 71(Apical) RR: 18 BP: 134/63 SpO2: 94%WT: 99.9 kg Intake and Output 7AM Yesterday to 7AM Today Intake and Output (Last 24 hours) Intake Oral Intake 120.00 Output Urine Voided 1475.00 Stool Count 0.00 Total Summary Total Intake 120.00 Total Output 1475.00 Fluid Balance -1355.00 Physical Exam Constitutional: Alert, oriented, appropriate HEENT: Normocephalic, atraumatic Lungs: Unlabored respirations, lung rios clear and diminished bilaterally, SPO2 94 to 96% on roomair Heart: Normal sinus rhythm S1-S2, no murmur or rub, heart rate ranging 66-79, temporary A and V pacer wires intact Abdomen: Soft, nontender, bowel sounds present, positive flatus, bowel movement 01/10/2022 Extremities: Bilateral below the knee amputation, well perfused Integumentary: Midline sternal incision open to air, edges well approximated, no drainage Central venous access: Left subclavian triple-lumen Disposition: [place] Weight Current Weight Dosing Weight: 81.5 kg (01/03/22) Current Weight: 99.9 kg (01/12/22) Dosing Weight: 81.5 kg (01/03/22) Current Weight: 102 kg (01/11/22) Medications Medications (33) Active Scheduled: (17) amiodarone 200 mg tablet 400 mg 2 tab(s), Oral, BIDM amiodarone 200 mg tablet 200 mg 1 tab(s), Oral, qDayM amLODIPine 5 mg tablet 5 mg 1 tab(s), Oral, BID aspirin 81 mg EC 81 mg 1 tab(s), Oral, qDayM atorvastatin 40 mg tablet 40 mg 1 tab(s), Oral, qDay citalopram 10 mg tablet 10 mg 1 tab(s), Oral, qAM docusate calcium 240 mg Capsule 240 mg 1 cap(s), Oral, BID empagliflozin 10 mg tablet 10 mg 1 tab(s), Oral, qAM insulin lispro 100 units/mL Soln (3 mL) Give 0-10 units/dose, Subcutaneous, achs levothyroxine 50 mcg tablet 50 mcg 1 tab(s), Oral, qDayAC lisinopril 20 mg tablet 40 mg 2 tab(s), Oral, qDay metformin 500 mg ER tablet 500 mg 1 tab(s), Oral, BID metoprolol tartrate 25 mg tablet 6.25 mg 0.25 tab(s), Oral, BIDM multivitamin (Chromagen Forte) with iron Vitamin B Complex with C, Folic Acid and Iron tablet 1 tab(s), Oral, qDay pantoprazole 40 mg EC tablet 40 mg 1 tab(s), Oral, qDayAC predniSONE 10 mg tablet 10 mg 1 tab(s), Oral, qDay vitamin A 10,000 units capsule 10,000 unit(s) 1 cap(s), Oral, qDay Continuous: (0) PRN: (16) acetaminophen 325 mg Tablet 650 mg 2 tab(s), Oral, q4h Al hydrox/Mg hydrox/simethicone 200-200-20 mg/5 mL Susp UD 30 mL, Oral, q2h bisacodyl 10 mg Suppository 10 mg 1 supp, Rectal, qDay bismuth subsalicylate 262 mg/15 mL 240 mL 30 mL, Oral, AsDirected dextrose 50% Solution Disp syringe 50 mL 25 g 50 mL, IV Push, AsDirected dextrose 50% Solution Disp syringe 50 mL 12.5 g 25 mL, IV Push, AsDirected glucagon recombinant 1 mg 1 mg 1 mL, Intramuscular, AsDirected hydralazine 25 mg Tablet 25 mg 1 tab(s), Oral, q6h ondansetron 2 mg/ 1 mL 2 mL INJ 4 mg 2 mL, IV Push, q4h phenol topical 1.4% Spr 1 spray(s), Topical, q1h polyethylene glycol 3350 - UD packet 17 gram(s) 15 mL, Oral, qDay potassium chloride (PMX) 20 mEq 50 mL, IV Piggyback, AsDirected potassium chloride (PMX) 15 mEq 50 mL, IV Piggyback, AsDirected potassium chloride (PMX) 10 mEq 50 mL, IV Piggyback, AsDirected tramadol 50 mg Tablet 25 mg 0.5 tab(s), Oral, q4h tramadol 50 mg Tablet 50 mg 1 tab(s), Oral, q6h Lab Results 01/12 04:51 WBC: 11.4 H Hgb: 10.4 L Hct: 31.7 L Platelet: 386 Protime: 13.6 PT International Ratio: 1.1 Glucose Level: 69 L Sodium Level: 138 Potassium Level: 4.1 BUN: 32.0 H Creatinine Lvl (s): 1.37 01/11 20:31 Potassium Level: 4.4 01/11 10:20 Potassium Level: 3.9 01/11 08:31 Potassium Level: 3.6 01/11 04:01 WBC: 11.0 H Hgb: 9.7 L Hct: 29.0 L Platelet: 322 Protime: 20.1 H PT International Ratio: 1.7 Glucose Level: 79 L Sodium Level: 140 Potassium Level: 3.4 L BUN: 31.0 H Creatinine Lvl (s): 1.38 EKG Electrocardiogram - Completed -- 01/11/22 21:26:00 EDT Electrocardiogram (EKG) - Ordered -- 01/12/22 9:34:00 EDT Assessment/Plan 1. CAD (coronary artery disease) EF 45-50% S/P CABG 1 01/05/2022 Normal sinus rhythm. Heart rate ranging 66-79. Blood pressures ranging 134/63- 140/63. On aspirin, metoprolol, and atorvastatin. Weight down 2.1 kg since yesterday. 2. NSTEMI (non-ST elevated myocardial infarction) No Plavix at discharge secondary to resuming Eliquis for atrial fibrillation. 3. Acute blood loss anemia H&H 10.4 and 31.7. 4. QUIN (acute kidney injury) BUN and creatinine 32 and 1.37. Urine output over last 24 hours 1475 cc. 5. CKD (chronic kidney disease), stage III BUN and creatinine 32 and 1.37. 6. AF (paroxysmal atrial fibrillation) Currently in normal sinus rhythm with heart rate ranging 66-79. Patient did develop atrial fibrillation overnight but has since converted to normal sinus rhythm. On metoprolol and amiodarone. Patienton Eliquis prior to admission for atrial fibrillation. 7. Diabetes Hgb A1c 8.4% Followed by [facility] inpatient [facility]. Glucoses ranging 69-1 33. On Humalog sliding scale insulin, metformin, Jardiance 8. HTN (hypertension) Blood pressures ranging 134/63-140/63. On metoprolol loaded pain, and lisinopril. 9. HLD (hyperlipidemia) On atorvastatin 10. Hypothyroid On levothyroxine 11. Giant cell arteritis s/p temporal artery biopsy 12/24/2021 On prednisone 12. PVD (peripheral vascular disease) s/p bilateral BKA 2019 13. 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 Leukocytosis WBC 11.4. Patient has been afebrile 16. Pleural effusion, left CT of the chest on 01/10/2022 showed small left and trace right pleural effusion. Bedside ultrasoundperformed by Dr. Hernandez with plans of performing a left- sided thoracentesis later on this evening. Plan: DC temporary pacer wires Plan for left-sided thoracentesis later on this evening by Dr. Hernandez Continue to encourage pulmonary toileting Patient seen and discussed with Dr. Hernandez. [1] Progress Note; PALAK NORMAN 01/11/2022 11:08 EDT Digitally Signed by YIMI NEWELL on 01/12/2022 04:58 PM [id number] Note Date of Service 07/14/2021 postop day #6 Chief Complaint This is an 81-year-old male with a past medical history of atrial fibrillation previously on Eliquis and amiodarone but well I just right stuff outside patient stopped but also. 1 year discontinued in August 2021 by his PCP, diabetes, hypothyroidism, mood disorder, peripheral vascular disease statuspost bilateral below the knee amputations in 2019, hyperlipidemia, hypertension, chronic kidney disease stage III with QUIN this admission, Singh's palsy and giant cell arteritis on prednisone. He resides at [facility]. He presented on 12/30/2021 with sudden onset of altered mental status and shortness of breath. Troponin 3577. Creatinine elevated 2.3. He was transferred to [facility] for fur ther evaluation. Echocardiogram completed showing EF of 45 to 50% with mild MR. Heart catheterization completed showing multivessel disease. Cleared by nephrology for surgery. On 01/05/2022 he underwent a coronary bypass graft x1 with MOLINA to the LAD per Dr. Hernandez. He tolerated the procedure well and was transferred to [facility] S[facility] in stable condition. Required Levophed for blood pressure support.Extubated on operative night. POD #1 up to the chair via Giles lift. Epinephrine weaned off. A paced at 80 with underlying sinus rhythm in the 60s. Transfer to stepdown. [facility] inpatient endocrinology following for blood sugar management. POD #2 chest tubes discontinued. Hydrocortisone decreased. L isinopril initiated. Creatinine stabilizing. Initiated on Coumadin. He had an episode of atrial fibrillation placed on amiodarone protocol but only received oral. POD #3 heart rate less than 55 overnight requiring pacing. Currently atrial fibrillation rate 90. No beta-nicole secondary to episodes of bradycardia. POD #4 sinus rhythm. Lisinopril increased. INR 4.8. Coumadin held. Repeat INR 6.3 received Aquamephyton 10 mg subcu, repeat INR up to 9.1. Received an additional 2 doses of aquamephyton and FFP. Coumadin discontinued. We will resume Eliquis at a later date. POD #5, INR 2.8, remains hypertensive with systolic BP 159/65-179/73. Will initiate low-dose Lopressor at 6.25 mg, lisinopril increased to 40 mg daily, CT of the chest without contrast today. Postop day #6 CT of the chest shows bilateral small pleural effusions. On room air. Denies shortness of breath. Dr. Hernandez to ultrasound fluid on left chest today. Amlodipine added for hypertension. Remains in normal sinus rhythm. INR 1.7 today. Subjective Currently resting in bed, no complaints offered Objective Vitals and Measurements T: 36.5 C (Oral) TMIN: 36.5 C (Oral) TMAX: 37.0 C (Oral) HR: 62(Monitored) RR: 18 BP: 156/74 SpO2: 94% WT: 102 kg Intake and Output 7AM Yesterday to 7AM Today Intake and Output (Last 24 hours) Intake Oral Intake 150.00 Supplement Intake 240.00 Output Urine Voided 2480.00 Stool Count 4.00 Total Summary Total Intake 390.00 Total Output 2480.00 Fluid Balance -0.00 Physical Exam Lungs: Bilateral, clear, diminished throughout Heart: Regular S1-S2, monitor normal sinus rhythm Incision: Midsternal open to air without drainage Abdomen: Round, soft, bowel sounds present, + BM Neurological: Intact Extremities: Warm, well perfused, bilateral BKA's Temporary pacemaker wire intact Central line continue poor IV access Discharge plan: SNF Weight Current Weight Dosing Weight: 81.5 kg (01/03/22) Current Weight: 102 kg (01/11/22) Dosing Weight: 81.5 kg (01/03/22) Current Weight: 103.3 kg (01/09/22) Medications Medications (35) Active Scheduled: (19) amiodarone 200 mg tablet 400 mg 2 tab(s), Oral, BIDM amiodarone 200 mg tablet 200 mg 1 tab(s), Oral, qDayM amLODIPine 5 mg tablet 5 mg 1 tab(s), Oral, BID aspirin 81 mg EC 81 mg 1 tab(s), Oral, qDayM atorvastatin 40 mg tablet 40 mg 1 tab(s), Oral, qDay citalopram 10 mg tablet 10 mg 1 tab(s), Oral, qAM docusate calcium 240 mg Capsule 240 mg 1 cap(s), Oral, BID empagliflozin 10 mg tablet 10 mg 1 tab(s), Oral, qAM insulin lispro 100 units/mL Soln (3 mL) Give 0-10 units/dose, Subcutaneous, achs levothyroxine 50 mcg tablet 50 mcg 1 tab(s), Oral, qDayAC lisinopril 20 mg tablet 40 mg 2 tab(s), Oral, qDay metformin 500 mg ER tablet 500 mg 1 tab(s), Oral, BID metoprolol tartrate 25 mg tablet 6.25 mg 0.25 tab(s), Oral, BIDM multivitamin (Chromagen Forte) with iron Vitamin B Complex with C, Folic Acid and Iron tablet 1 tab(s), Oral, qDay mupirocin 2% Ointment 22 Gram(s) tube 1 femi, Nostril, each, BID pantoprazole 40 mg EC tablet 40 mg 1 tab(s), Oral, qDayAC potassium chloride 20 mEq ER tablet 20 mEq 1 tab(s), Oral, BIDM predniSONE 10 mg tablet 10 mg 1 tab(s), Oral, qDay vitamin A 10,000 units capsule 10,000 unit(s) 1 cap(s), Oral, qDay Continuous: (0) PRN: (16) acetaminophen 325 mg Tablet 650 mg 2 tab(s), Oral, q4h Al hydrox/Mg hydrox/simethicone 200-200-20 mg/5 mL Susp UD 30 mL, Oral, q2h bisacodyl 10 mg Suppository 10 mg 1 supp, Rectal, qDay bismuth subsalicylate 262 mg/15 mL 240 mL 30 mL, Oral, AsDirected dextrose 50% Solution Disp syringe 50 mL 25 g 50 mL, IV Push, AsDirected dextrose 50% Solution Disp syringe 50 mL 12.5 g 25 mL, IV Push, AsDirected glucagon recombinant 1 mg 1 mg 1 mL, Intramuscular, AsDirected hydralazine 25 mg Tablet 25 mg 1 tab(s), Oral, q6h ondansetron 2 mg/ 1 mL 2 mL INJ 4 mg 2 mL, IV Push, q4h phenol topical 1.4% Spr 1 spray(s), Topical, q1h polyethylene glycol 3350 - UD packet 17 gram(s) 15 mL, Oral, qDay potassium chloride (PMX) 20 mEq 50 mL, IV Piggyback, AsDirected potassium chloride (PMX) 15 mEq 50 mL, IV Piggyback, AsDirected potassium chloride (PMX) 10 mEq 50 mL, IV Piggyback, AsDirected tramadol 50 mg Tablet 25 mg 0.5 tab(s), Oral, q4h tramadol 50 mg Tablet 50 mg 1 tab(s), Oral, q6h Lab Results 01/11 10:20 Potassium Level: 3.9 01/11 08:31 Potassium Level: 3.6 01/11 04:01 WBC: 11.0 H Hgb: 9.7 L Hct: 29.0 L Platelet: 322 Protime: 20.1 H PT International Ratio: 1.7 Glucose Level: 79 L Sodium Level: 140 Potassium Level: 3.4 L BUN: 31.0 H Creatinine Lvl (s): 1.38 01/10 05:17 WBC: 9.7 Hgb: 9.1 L Hct: 27.4 L Platelet: 270 Neutrophil %: 74.8 Protime: 34.6 H PT International Ratio: 2.8 Glucose Level: 87 Sodium Level: 142 Potassium Level: 3.2 L BUN: 36.0 H Creatinine Lvl (s): 1.26 01/10 01:54 Protime: 28.6 H PT International Ratio: 2.4 Imaging Results and Diagnostics CT of the chest (01/10/2022 09:[address] Thorax w/o Contrast) IMPRESSION: Expected postsurgical changes of median sternotomy/CABG. No abnormal fluid collections identified. Small left and trace right pleural effusions with mild adjacent atelectasis/consolidation. Smaller ground-glass opacity within the anteromedial left upper lobe adjacent to postsurgical changes within the mediastinum is also likely postsurgical in etiology. Developing infectious/inflammatory process is not entirely excluded. Mild left upper lobe atelectasis. Main pulmonary artery is dilated measuring up to 3.2 cm suggesting underlying pulmonary arterial hypertension. Cholelithiasis versus layering sludge within the gallbladder. No secondary evidence of acute cholecystitis. [1] Assessment/Plan 1. CAD (coronary artery disease) EF 45-50% S/P CABG 1 01/05/2022 ASA, low-dose beta-nicole, lisinopril, atorvastatin 2. NSTEMI (non-ST elevated myocardial infarction) No Plavix secondary to restarting Eliquis for atrial fibrillation 3. Acute blood loss anemia Stable, hemoglobin 9.7/hematocrit 29 4. QUIN (acute kidney injury) Creatinine level 1.38, stable, adequate urine output 5. CKD (chronic kidney disease), stage III 6. AF (paroxysmal atrial fibrillation) Currently in normal sinus rhythm On low-dose beta-nicole and amiodarone We will restart Eliquis either today or at discharge Coumadin was discontinued secondary to supratherapeutic level, INR 1.7 today -no further Coumadin 7. Diabetes Hgb A1c 8.4% Glucose 79 1 36, AIE following 8. HTN (hypertension) Blood pressure 156/74 180/77, Lisinopril, low-dose beta-nicole, amlodipine added 9. HLD (hyperlipidemia) Atorvastatin 10. Hypothyroid Levothyroxine 11. Giant cell arteritis s/p temporal artery biopsy 12/24/2021 On prednisone 12. PVD (peripheral vascular disease) s/p bilateral BKA 2019 13. 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 Leukocytosis 16. Pleural effusion, left CT of the chest reviewed by Dr. Hernandez CT shows small left pleural effusion Dr. Hernandez to ultrasound left pleural fluid later today to determine need for thoracentesis PO Potassium supplement BMP in AM Continue pulmonary toilet Discussed with Dr. Hernandez [1] CT Thorax w/o Contrast; SJ ROSALES MD 01/10/2022 09:04 EDT Digitally Signed by PALAK NORMANMANAGER AUDIO on 01/11/2022 11:18 AM [id number] Endocrinology Progress note Date of Service 01/11/22 Chief Complaint DM2; hypothyroidism Subjective Chart reviewed. Overnight events and plan of care d/w patient. Patient reports increased weakness, fatigue. BP is up this AM as well. CT reviewed, shows small r thyroid nodule. Objective Vitals and Measurements T: 36.5 C (Oral) TMIN: 36.5 C (Oral) TMAX: 37.0 C (Oral) HR: 64(Monitored) RR: 18 BP: 159/68 SpO2: 94% WT: 102 kg Intake and Output 7AM Yesterday to 7AM Today Intake and Output (Last 24 hours) Intake Oral Intake 150.00 Supplement Intake 240.00 Output Urine Voided 1880.00 Stool Count 4.00 Total Summary Total Intake 390.00 Total Output 1880.00 Fluid Balance -1490.00 Physical Exam Alert, lying in bed, no acute distress Respirations even and unlabored Answers questions appropriately. Mood and affect normal. Weight Current Weight Dosing Weight: 81.5 kg (01/03/22) Current Weight: 102 kg (01/11/22) Dosing Weight: 81.5 kg (01/03/22) Current Weight: 103.3 kg (01/09/22) Medications Medications (34) Active Scheduled: (18) amiodarone 200 mg tablet 400 mg 2 tab(s), Oral, BIDM amiodarone 200 mg tablet 200 mg 1 tab(s), Oral, qDayM amLODIPine 5 mg tablet 5 mg 1 tab(s), Oral, BID aspirin 81 mg EC 81 mg 1 tab(s), Oral, qDayM atorvastatin 40 mg tablet 40 mg 1 tab(s), Oral, qDay citalopram 10 mg tablet 10 mg 1 tab(s), Oral, qAM docusate calcium 240 mg Capsule 240 mg 1 cap(s), Oral, BID empagliflozin 10 mg tablet 10 mg 1 tab(s), Oral, qAM insulin lispro 100 units/mL Soln (3 mL) Give 0-10 units/dose, Subcutaneous, achs levothyroxine 50 mcg tablet 50 mcg 1 tab(s), Oral, qDayAC lisinopril 20 mg tablet 40 mg 2 tab(s), Oral, qDay metformin 500 mg ER tablet 500 mg 1 tab(s), Oral, BID metoprolol tartrate 25 mg tablet 6.25 mg 0.25 tab(s), Oral, BIDM multivitamin (Chromagen Forte) with iron Vitamin B Complex with C, Folic Acid and Iron tablet 1 tab(s), Oral, qDay mupirocin 2% Ointment 22 Gram(s) tube 1 femi, Nostril, each, BID pantoprazole 40 mg EC tablet 40 mg 1 tab(s), Oral, qDayAC predniSONE 10 mg tablet 10 mg 1 tab(s), Oral, qDay vitamin A 10,000 units capsule 10,000 unit(s) 1 cap(s), Oral, qDay Continuous: (0) PRN: (16) acetaminophen 325 mg Tablet 650 mg 2 tab(s), Oral, q4h Al hydrox/Mg hydrox/simethicone 200-200-20 mg/5 mL Susp UD 30 mL, Oral, q2h bisacodyl 10 mg Suppository 10 mg 1 supp, Rectal, qDay bismuth subsalicylate 262 mg/15 mL 240 mL 30 mL, Oral, AsDirected dextrose 50% Solution Disp syringe 50 mL 25 g 50 mL, IV Push, AsDirected dextrose 50% Solution Disp syringe 50 mL 12.5 g 25 mL, IV Push, AsDirected glucagon recombinant 1 mg 1 mg 1 mL, Intramuscular, AsDirected hydralazine 25 mg Tablet 25 mg 1 tab(s), Oral, q6h ondansetron 2 mg/ 1 mL 2 mL INJ 4 mg 2 mL, IV Push, q4h phenol topical 1.4% Spr 1 spray(s), Topical, q1h polyethylene glycol 3350 - UD packet 17 gram(s) 15 mL, Oral, qDay potassium chloride (PMX) 20 mEq 50 mL, IV Piggyback, AsDirected potassium chloride (PMX) 15 mEq 50 mL, IV Piggyback, AsDirected potassium chloride (PMX) 10 mEq 50 mL, IV Piggyback, AsDirected tramadol 50 mg Tablet 25 mg 0.5 tab(s), Oral, q4h tramadol 50 mg Tablet 50 mg 1 tab(s), Oral, q6h Lab Results 01/11 04:01 WBC: 11.0 H Hgb: 9.7 L Hct: 29.0 L Platelet: 322 Protime: 20.1 H PT International Ratio: 1.7 Glucose Level: 79 L Sodium Level: 140 Potassium Level: 3.4 L BUN: 31.0 H Creatinine Lvl (s): 1.38 01/10 05:17 WBC: 9.7 Hgb: 9.1 L Hct: 27.4 L Platelet: 270 Neutrophil %: 74.8 Protime: 34.6 H PT International Ratio: 2.8 Glucose Level: 87 Sodium Level: 142 Potassium Level: 3.2 L BUN: 36.0 H Creatinine Lvl (s): 1.26 01/10 01:54 Protime: 28.6 H PT International Ratio: 2.4 Group Detail Date Value w/Units Flags Normal Range Normal Reference Text Comment Ind Glucose Testing Blood Glucose, Capillary 01/11/2022 07:13:00 EDT 83 mg/dL 82-115 Glucose Testing Glucose Level 01/11/2022 04:01:00 EDT 79 mg/dL LOW 82-115 Glucose Testing Blood Glucose, Capillary 01/10/2022 21:17:00 EDT 136 mg/dL HI 82-115 Glucose Testing Blood Glucose, Capillary 01/10/2022 16:14:00 EDT 182 mg/dL HI 82-115 Y Glucose Testing Blood Glucose, Capillary 01/10/2022 11:11:00 EDT 128 mg/dL HI 82-115 Glucose Testing Blood Glucose, Capillary 01/10/2022 10:12:00 EDT 104 mg/dL 82-115 EKG No qualifying data available. Assessment/Plan 1. CAD (coronary artery disease) EF 45-50% S/P CABG 1 01/05/2022 2. NSTEMI (non-ST elevated myocardial infarction) 3. Acute blood loss anemia 4. QUIN (acute kidney injury) 5. CKD (chronic kidney disease), stage III 6. AF (paroxysmal atrial fibrillation) 7. Diabetes Hgb A1c 8.4% 8. HTN (hypertension) 9. HLD (hyperlipidemia) 10. Hypothyroid 11. 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 PVD (peripheral vascular disease) s/p bilateral BKA 2019 13. 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 Leukocytosis 16. Pleural effusion, left Orders: empagliflozin, Dose : 10 mg = 1 tab(s), Oral, qAM, 0 Refill(s) insulin lispro (HumaLOG), Give 0-10 units/dose, Subcutaneous, achs, 0 Refill(s) insulin lispro (HumaLOG), Start: 01/10/22 17:00:00 EDT, Give 0-10 units/dose, Subcutaneous, achs, 0, 01/10/22 16:44:00 EDT metFORMIN, Dose : 500 mg = 1 tab(s), Oral, BID, 0 Refill(s) This is a 81-year-old male with past medical history of atrial fibrillation (previously on Eliquis and amiodarone-discontinued 09/01/2021), diabetes type 2, hypothyroidism, mood disorder, peripheral vascular disease status post bilateral below the knee amputations in 2019, hyperlipidemia, hypertension, chronic kidney disease stage III, Singh's palsy, and giant cell arteritis status post temporal artery biopsy by Dr. Weinstein on 12/24/2021-on prednisone. [facility] He [facility] to [facility] on December 30, 2021 due to a sudden onset of alteredmental status and shortness of breath. At [facility], he was noted to have acute kidney injury with creatinine 2.3 and elevated troponin at 3577. EKG revealed normal sinus rhythm without evidenceof ST elevation or depression. Negative for COVID-19 at [facility]. He was transferred to [facility] for further evaluation. Echocardiogram on December 30, 2021 revealed an EF of 45 to 50% and mild MR. 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 Cardiothoracic surgery was consulted for possible surgical myocardial vascularization. 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 Endocrine consult placed by CTS for diabetic management. Longstanding type II diabetic with A1c of 8.4%. Currently residing at [facility] with orders in place for Humalog 32 units with lunch and supper, Toujeo 70 units nightly, sliding scale 3 to 12 units with meals and at bedtime. History of hyperlipidemia noted. Total cholesterol 129, triglycerides 152, HDL 24, LDL is 75. Continue on Lipitor 40 mg daily inpatient. History of hypothyroidism on levothyroxine 50 mcg daily. Continue on the same. TSH within range 3.091. Last 24 Hours: On chronic prednisone 10 mg daily for giant cell arteritis. Current inpatient orders are in place for Lantus 10 units qhs, metformin 500 twice daily, [id number] qd and a 0-10 sliding scale with meals and at bedtime. Blood glucose trends reviewed, fasting this morning 83. Trends at goal. Trial off Lantus tonight. Continue oral agents as is being done. GFR noted, 50. He does have CKD history Incidental thyroid nodule noted on CT. No further f/u needed. Will continue to follow as needed while inpatient. Time Spent Total time spent 25 minutes Digitally Signed by CASPER MURRY on 01/11/2022 11:35 AM [id number] Note ORIGINAL EXAMINATION: CT OF THE CHEST WITHOUT CONTRAST 01/10/2022 9:09 am TECHNIQUE: CT of the chest was performed without the administration of intravenous contrast. Multiplanar reformatted images are provided for review. Automated exposure control, iterative reconstruction, and/or weight based adjustment of the mA/kV was utilized to reduce the radiation dose to as low as reasonably achievable. COMPARISON: Chest x-ray 01/09/2022, 01/08/2022. HISTORY: ORDERING SYSTEM PROVIDED HISTORY: Reason for Exam: Left pleural effusion. Complaining of severe chest pain. CABG on 01/05/2022. FINDINGS: There is a subcentimeter hypodense nodule within the right thyroid lobe which is not require additional follow-up. Esophagus is normal in course and caliber. Median sternotomy wires and mediastinal surgical clips are noted. Epicardial pacer leads are noted. There is a small amount of subcutaneous air within the left and anterior chest wall. There is also a small amount of pneumomediastinum with retrosternal fat stranding. No definite fluid collections are identified, however exam is limited due to lack of IV contrast. Heart is mildly enlarged without pericardial effusion. Aorta is normal in caliber with moderate atherosclerotic calcifications at the aortic arch. The main pulmonary artery is dilated measuring up to 3.2 cm in maximum diameter. Severe coronary artery calcifications are noted. No pathologically enlarged mediastinal, hilar or axillary lymph nodes. Trachea and mainstem bronchi are patent. There is a small left and trace right pleural effusion with mild adjacent atelectasis/consolidation. Small subsegmental atelectasis involving the left upper lobe. Small area of ground-glass opacity within the anteromedial left upper lobe. No pneumothorax. No suspicious pulmonary nodules or masses. Mild gynecomastia. There is a 2.7 cm left hepatic lobe cyst. There are additional few subcentimeter hypodensities within the liver which are too small to characterize but likely represent small cysts or hemangiomas. There is a benign calcification within the left hepatic lobe. There is a small amount of hyperdense material layering within the gallbladder neck likely representing cholelithiasis or layering gallbladder sludge. No secondary evidence acute cholecystitis. No aggressive osseous abnormalities. Severe multilevel degenerative changes are noted throughout the visualized spine. IMPRESSION: Expected postsurgical changes of median sternotomy/CABG. No abnormal fluid collections identified. Small left and trace right pleural effusions with mild adjacent atelectasis/consolidation. Smaller ground-glass opacity within the anteromedial left upper lobe adjacent to postsurgical changes within the mediastinum is also likely postsurgical in etiology. Developing infectious/inflammatory process is not entirely excluded. Mild left upper lobe atelectasis. Main pulmonary artery is dilated measuring up to 3.2 cm suggesting underlying pulmonary arterial hypertension. Cholelithiasis versus layering sludge within the gallbladder. No secondary evidence of acute cholecystitis. I have personally reviewed the images of this examination and agree with the resident's findings and interpretation. RECOMMENDATIONS: Subcentimeter incidental right thyroid nodule. No follow-up imaging is recommended. Reference: J Am Juvencio Radiol. 2015 Jul;12(2): 143-50 Interpreted by: Sj Rosales MD Preliminary Report By: Cayetano Larson Electronically signed By Sj Rosales MD Dictated Date: 01/10/2022 4:15:35 PM Prelim Date: 01/10/2022 4:26:07 PM Sign Date: 01/10/2022 4:43:27 PM Ordering Provider: YIMI [id number] Endocrinology Progress note Date of Service 01/10/22 Chief Complaint DM2 Management Subjective Chart reviewed. Overnight events and plan of care d/w patient. Continues to report incisional chestpain that is exacerbated with cough. Appetite is good. Objective Vitals and Measurements T: 36.9 C (Oral) TMIN: 36.5 C (Oral) TMAX: 36.9 C (Oral) HR: 73(Apical) RR: 20 BP: 135/76 SpO2: 93% Intake and Output 7AM Yesterday to 7AM Today Intake and Output (Last 24 hours) Intake Fresh Frozen Plasma Amount Transfused 300.00 Oral Intake 600.00 Supplement Intake 837.00 Output Urine Voided 1050.00 Stool Count 0.00 Emesis Count 0.00 Total Summary Total Intake 1737.00 Total Output 1050.00 Fluid Balance 687.00 Physical Exam Weight Current Weight Dosing Weight: 81.5 kg (01/03/22) Current Weight: 103.3 kg (01/09/22) Dosing Weight: 81.5 kg (01/03/22) Current Weight: 102.6 kg (01/08/22) Medications Medications (34) Active Scheduled: (18) amiodarone 200 mg tablet 400 mg 2 tab(s), Oral, BIDM amiodarone 200 mg tablet 200 mg 1 tab(s), Oral, qDayM aspirin 81 mg EC 81 mg 1 tab(s), Oral, qDayM atorvastatin 40 mg tablet 40 mg 1 tab(s), Oral, qDay citalopram 10 mg tablet 10 mg 1 tab(s), Oral, qAM docusate calcium 240 mg Capsule 240 mg 1 cap(s), Oral, BID empagliflozin 10 mg tablet 10 mg 1 tab(s), Oral, qAM insulin glargine 10 unit(s) 0.1 mL, Subcutaneous (INT), qHS insulin lispro 100 units/mL Soln (3 mL) Give 2-18 units/dose, Subcutaneous, achs levothyroxine 50 mcg tablet 50 mcg 1 tab(s), Oral, qDayAC lisinopril 20 mg tablet 40 mg 2 tab(s), Oral, qDay metformin 500 mg ER tablet 500 mg 1 tab(s), Oral, BID metoprolol tartrate 25 mg tablet 6.25 mg 0.25 tab(s), Oral, BIDM multivitamin (Chromagen Forte) with iron Vitamin B Complex with C, Folic Acid and Iron tablet 1 tab(s), Oral, qDay mupirocin 2% Ointment 22 Gram(s) tube 1 femi, Nostril, each, BID pantoprazole 40 mg EC tablet 40 mg 1 tab(s), Oral, qDayAC predniSONE 10 mg tablet 10 mg 1 tab(s), Oral, qDay vitamin A 10,000 units capsule 10,000 unit(s) 1 cap(s), Oral, qDay Continuous: (0) PRN: (16) acetaminophen 325 mg Tablet 650 mg 2 tab(s), Oral, q4h Al hydrox/Mg hydrox/simethicone 200-200-20 mg/5 mL Susp UD 30 mL, Oral, q2h bisacodyl 10 mg Suppository 10 mg 1 supp, Rectal, qDay bismuth subsalicylate 262 mg/15 mL 240 mL 30 mL, Oral, AsDirected dextrose 50% Solution Disp syringe 50 mL 25 g 50 mL, IV Push, AsDirected dextrose 50% Solution Disp syringe 50 mL 12.5 g 25 mL, IV Push, AsDirected glucagon recombinant 1 mg 1 mg 1 mL, Intramuscular, AsDirected hydralazine 25 mg Tablet 25 mg 1 tab(s), Oral, q6h ondansetron 2 mg/ 1 mL 2 mL INJ 4 mg 2 mL, IV Push, q4h phenol topical 1.4% Spr 1 spray(s), Topical, q1h polyethylene glycol 3350 - UD packet 17 gram(s) 15 mL, Oral, qDay potassium chloride (PMX) 20 mEq 50 mL, IV Piggyback, AsDirected potassium chloride (PMX) 15 mEq 50 mL, IV Piggyback, AsDirected potassium chloride (PMX) 10 mEq 50 mL, IV Piggyback, AsDirected tramadol 50 mg Tablet 25 mg 0.5 tab(s), Oral, q4h tramadol 50 mg Tablet 50 mg 1 tab(s), Oral, q6h Lab Results 07/25 05:17 WBC: 9.7 Hgb: 9.1 L Hct: 27.4 L Platelet: 270 Neutrophil %: 74.8 Protime: 34.6 H PT International Ratio: 2.8 Glucose Level: 87 Sodium Level: 142 Potassium Level: 3.2 L BUN: 36.0 H Creatinine Lvl (s): 1.26 01/10 01:54 Protime: 28.6 H PT International Ratio: 2.4 01/09 20:08 Protime: 112.9 H PT International Ratio: 9.1 C 01/09 12:50 Protime: 77.9 H PT International Ratio: 6.3 C 01/09 05:30 WBC: 10.9 H Hgb: 9.0 L Hct: 27.1 L Platelet: 246 Neutrophil %: 74.9 Protime: 58.5 H PT International Ratio: 4.8 Glucose Level: 76 L Sodium Level: 143 Potassium Level: 3.5 BUN: 47.0 H Creatinine Lvl (s): 1.54 H Group Detail Date Value w/Units Flags Normal Range Normal Reference Text Comment Ind Glucose Testing Blood Glucose, Capillary 01/10/2022 11:11:00 EDT 128 mg/dL HI 82-115 Glucose Testing Blood Glucose, Capillary 01/10/2022 10:12:00 EDT 104 mg/dL 82-115 Glucose Testing Blood Glucose, Capillary 01/10/2022 07:26:00 EDT 83 mg/dL 82-115 Glucose Testing Blood Glucose, Capillary 01/10/2022 06:49:00 EDT 78 mg/dL LOW 82-115 Y Glucose Testing Glucose Level 01/10/2022 05:17:00 EDT 87 mg/dL 82-115 Glucose Testing Blood Glucose, Capillary 01/09/2022 21:17:00 EDT 207 mg/dL HI 82-115 Glucose Testing Blood Glucose, Capillary 01/09/2022 16:21:00 EDT 96 mg/dL 82-115 EKG EKG - Completed -- 01/08/22 7:07:00 EDT Assessment/Plan 1. CAD (coronary artery disease) EF 45-50% S/P CABG 1 01/05/2022 2. NSTEMI (non-ST elevated myocardial infarction) 3. Acute blood loss anemia 4. QUIN (acute kidney injury) 5. CKD (chronic kidney disease), stage III 6. AF (paroxysmal atrial fibrillation) 7. Diabetes Hgb A1c 8.4% 8. HTN (hypertension) 9. HLD (hyperlipidemia) 10. Hypothyroid 11. 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 PVD (peripheral vascular disease) s/p bilateral BKA 2019 13. 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 Leukocytosis 16. Pleural effusion, left Orders: empagliflozin, Start: 01/10/22 9:00:00 EDT, Dose = 10 mg, = 1 tab(s), Oral, qAM, 0, 01/10/22 7:51:00 EDT insulin glargine, Start: 01/10/22 22:00:00 EDT, Dose = 10 unit(s), = 0.1 mL, Subcutaneous (INT), qHS, Rate: 0 mL/hr, Infuse over: 0 minute(s), 0, 01/10/22 7:51:00 EDT This is a 81-year-old male with past medical history of atrial fibrillation (previously on Eliquis and amiodarone-discontinued 09/01/2021), diabetes type 2, hypothyroidism, mood disorder, peripheral vascular disease status post bilateral below the knee amputations in 2019, hyperlipidemia, hypertension, chronic kidney disease stage III, Singh's palsy, and giant cell arteritis status post temporal artery biopsy by Dr. Weinstein on 12/24/2021-on prednisone. [facility]. He presented to [facility] on December 30, 2021 due to a sudden onset of alteredmental status and shortness of breath. At [facility], he was noted to have acute kidney injury with creatinine 2.3 and elevated troponin at 3577. EKG revealed normal sinus rhythm without evidenceof ST elevation or depression. Negative for COVID-19 at [facility]. He was transferred to [facility] for further evaluation. Echocardiogram on December 30, 2021 revealed an EF of 45 to 50% and mild MR. 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 Cardiothoracic surgery was consulted for possible surgical myocardial vascularization. 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 Endocrine consult placed by CTS for diabetic management. Longstanding type II diabetic with A1c of 8.4%. Currently residing at [facility] with orders in place for Humalog 32 units with lunch and supper, Toujeo 70 units nightly, sliding scale 3 to 12 units with meals and at bedtime. History of hyperlipidemia noted. Total cholesterol 129, triglycerides 152, HDL 24, LDL is 75. Continue on Lipitor 40 mg daily inpatient. History of hypothyroidism on levothyroxine 50 mcg daily. Continue on the same. TSH within range 3.091. Last 24 Hours: On chronic prednisone 10 mg daily for giant cell arteritis. Current inpatient orders are in place for Lantus 10 units twice daily, metformin 500 twice daily and a 2-18 sliding scale with meals and at bedtime. Blood glucose trends reviewed, fasting this morning 78. 128 before lunch. I did DC his morning doseof Lantus this morning prior to administration. Order has been adjusted to 10 units nightly. Add Jardiance 10 mg daily. Continue Metformin. SSI to 0-10 achs. GFR noted, 55. He does have CKD history Will continue to follow while inpatient. Time Spent Total time spent 25 minutes Digitally Signed by CASPER MURRY on 01/10/2022 04:44 PM [id number] Note ORIGINAL EXAMINATION: CT OF THE CHEST WITHOUT CONTRAST 01/10/2022 9:09 am TECHNIQUE: CT of the chest was performed without the administration of intravenous contrast. Multiplanar reformatted images are provided for review. Automated exposure control, iterative reconstruction, and/or weight based adjustment of the mA/kV was utilized to reduce the radiation dose to as low as reasonably achievable. COMPARISON: Chest x-ray 01/09/2022, 01/08/2022. HISTORY: ORDERING SYSTEM PROVIDED HISTORY: Reason for Exam: Left pleural effusion. Complaining of severe chest pain. CABG on 01/05/2022. FINDINGS: There is a subcentimeter hypodense nodule within the right thyroid lobe which is not require additional follow-up. Esophagus is normal in course and caliber. Median sternotomy wires and mediastinal surgical clips are noted. Epicardial pacer leads are noted. There is a small amount of subcutaneous air within the left and anterior chest wall. There is also a small amount of pneumomediastinum with retrosternal fat stranding. No definite fluid collections are identified, however exam is limited due to lack of IV contrast. Heart is mildly enlarged without pericardial effusion. Aorta is normal in caliber with moderate atherosclerotic calcifications at the aortic arch. The main pulmonary artery is dilated measuring up to 3.2 cm in maximum diameter. Severe coronary artery calcifications are noted. No pathologically enlarged mediastinal, hilar or axillary lymph nodes. Trachea and mainstem bronchi are patent. There is a small left and trace right pleural effusion with mild adjacent atelectasis/consolidation. Small subsegmental atelectasis involving the left upper lobe. Small area of ground-glass opacity within the anteromedial left upper lobe. No pneumothorax. No suspicious pulmonary nodules or masses. Mild gynecomastia. There is a 2.7 cm left hepatic lobe cyst. There are additional few subcentimeter hypodensities within the liver which are too small to characterize but likely represent small cysts or hemangiomas. There is a benign calcification within the left hepatic lobe. There is a small amount of hyperdense material layering within the gallbladder neck likely representing cholelithiasis or layering gallbladder sludge. No secondary evidence acute cholecystitis. No aggressive osseous abnormalities. Severe multilevel degenerative changes are noted throughout the visualized spine. IMPRESSION: Expected postsurgical changes of median sternotomy/CABG. No abnormal fluid collections identified. Small left and trace right pleural effusions with mild adjacent atelectasis/consolidation. Smaller ground-glass opacity within the anteromedial left upper lobe adjacent to postsurgical changes within the mediastinum is also likely postsurgical in etiology. Developing infectious/inflammatory process is not entirely excluded. Mild left upper lobe atelectasis. Main pulmonary artery is dilated measuring up to 3.2 cm suggesting underlying pulmonary arterial hypertension. Cholelithiasis versus layering sludge within the gallbladder. No secondary evidence of acute cholecystitis. I have personally reviewed the images of this examination and agree with the resident's findings and interpretation. RECOMMENDATIONS: Subcentimeter incidental right thyroid nodule. No follow-up imaging is recommended. Reference: J Am Juvencio Radiol. 2015 Jul;12(2): 143-50 Interpreted by: Sj Rosales MD Preliminary Report By: Cayetano Larson Electronically signed By Sj Rosales MD Dictated Date: 01/10/2022 4:15:35 PM Prelim Date: 01/10/2022 4:26:07 PM Sign Date: 01/10/2022 4:43:27 PM Ordering Provider: [facility]07-25-2022 Note Date of Service 01/10/2022 Chief Complaint POD #5 This is an 81-year-old male with a past medical history of atrial fibrillation previously on Eliquis and amiodarone but discontinued in August 2021 by his PCP, diabetes, hypothyroidism, mood disorder,peripheral vascular disease status post bilateral below the knee amputations in 2019, hyperlipidemia, hypertension, chronic kidney disease stage III with QUIN this admission, Singh's palsy and giant cell arteritis on prednisone. He resides at [facility]. He presented on 12/30/2021 with sudden onset of altered mental status and shortness of breath. Troponin 3577. Creatinine elevated 2.3. He was transferred to [facility] for further evaluation. Echocardiogram completed showing EF of 45 to 50% with mild MR. Heart catheterization completed showing multivessel disease. On 01/05/2022 he underwent a coronary bypass graft x1 with MOLINA to the LAD per Dr. Hernandez. He tolerated the procedure well and was transferred to [facility] SICU in stable condition. Required Levophed for blood pressure support. Extubated on operative night. POD #1 up to the chair via Giles lift. Epinephrine weaned off. A paced at 80 with underlying sinus rhythm in the 60s. Transfer to stepdown. POD #2 chest tubes discontinued. Hydrocortisone decreased. Lisinopril initiated. Creatinine stabilizing. Initiated on Coumadin. He had an episode of atrial fibrillation placed on amiodarone protocol but only received oral. Followed by nephrology. POD #3 heart rate less than 55 overnight requiring pacing. Currently atrial fibrillation rate 90. No beta-nicole secondary to episodes of bradycardia. POD #4 sinus rhythm. Complaining of feeling tired. Lisinopril increased. INR 4.8. Coumadin held. Repeat INR 6.3 received Aquamephyton 10 mg subcu, repeat INR up to 9.1. Received an additional 2 doses of aquamephyton and FFP. POD #5, INR 2.8, remains hypertensive with systolic BP 159/65-179/73. Will initiate low-dose Lopressor at 6.25 mg, lisinopril increased to 40 mg daily, CT of the chest without contrast. Will resume Eliquis at a later date. Amlodipine if BP is not improved with increase Lopressor. Keep AV temporary pacing wires today. Subjective Feels tired. No complaints otherwise. States that he did have an episode of shortness of breath last evening that is currently resolved. Has some chest soreness with deep inspiration. States he had aBM 2 days ago (this was not documented in [employer]). Denies abdominal discomfort. Denies nausea or vomiting. Tolerating p.o. well. Objective Vitals and Measurements T: 36.6 C (Oral) TMIN: 36.5 C (Oral) TMAX: 36.8 C (Oral) HR: 71(Monitored) RR: 20 BP: 165/67 SpO2: 93% Intake and Output 7AM Yesterday to 7AM Today Intake and Output (Last 24 hours) Intake Fresh Frozen Plasma Amount Transfused 300.00 Oral Intake 600.00 Supplement Intake 600.00 Output Urine Voided 1125.00 Stool Count 0.00 Emesis Count 0.00 Total Summary Total Intake 1500.00 Total Output 1125.00 Fluid Balance 375.00 Physical Exam General: Awake, alert and oriented, on room air. No apparent distress Heart: Regular rate and rhythm, normal S1, S2. rate 71. AV temporary pacing wires to dressing Lungs: Nonlabored, easy and even. Lung sounds are clear bilaterally with slightly diminished bases bilaterally. Abdomen: Soft and rounded, nontender. Bowel sounds present. Extremities: Warm and well-perfused, no edema. Incisions: Midsternal incision open to air and well approximated. No redness or drainage. Weight Current Weight Dosing Weight: 81.5 kg (01/03/22) Current Weight: 103.3 kg (01/09/22) Dosing Weight: 81.5 kg (01/03/22) Current Weight: 102.6 kg (01/08/22) Medications Medications (34) Active Scheduled: (18) amiodarone 200 mg tablet 400 mg 2 tab(s), Oral, BIDM amiodarone 200 mg tablet 200 mg 1 tab(s), Oral, qDayM aspirin 81 mg EC 81 mg 1 tab(s), Oral, qDayM atorvastatin 40 mg tablet 40 mg 1 tab(s), Oral, qDay citalopram 10 mg tablet 10 mg 1 tab(s), Oral, qAM docusate calcium 240 mg Capsule 240 mg 1 cap(s), Oral, BID empagliflozin 10 mg tablet 10 mg 1 tab(s), Oral, qAM insulin glargine 10 unit(s) 0.1 mL, Subcutaneous (INT), qHS insulin lispro 100 units/mL Soln (3 mL) Give 2-18 units/dose, Subcutaneous, achs levothyroxine 50 mcg tablet 50 mcg 1 tab(s), Oral, qDayAC lisinopril 20 mg tablet 40 mg 2 tab(s), Oral, qDay metformin 500 mg ER tablet 500 mg 1 tab(s), Oral, BID metoprolol tartrate 25 mg tablet 6.25 mg 0.25 tab(s), Oral, BIDM multivitamin (Chromagen Forte) with iron Vitamin B Complex with C, Folic Acid and Iron tablet 1 tab(s), Oral, qDay mupirocin 2% Ointment 22 Gram(s) tube 1 femi, Nostril, each, BID pantoprazole 40 mg EC tablet 40 mg 1 tab(s), Oral, qDayAC predniSONE 10 mg tablet 10 mg 1 tab(s), Oral, qDay vitamin A 10,000 units capsule 10,000 unit(s) 1 cap(s), Oral, qDay Continuous: (0) PRN: (16) acetaminophen 325 mg Tablet 650 mg 2 tab(s), Oral, q4h Al hydrox/Mg hydrox/simethicone 200-200-20 mg/5 mL Susp UD 30 mL, Oral, q2h bisacodyl 10 mg Suppository 10 mg 1 supp, Rectal, qDay bismuth subsalicylate 262 mg/15 mL 240 mL 30 mL, Oral, AsDirected dextrose 50% Solution Disp syringe 50 mL 25 g 50 mL, IV Push, AsDirected dextrose 50% Solution Disp syringe 50 mL 12.5 g 25 mL, IV Push, AsDirected glucagon recombinant 1 mg 1 mg 1 mL, Intramuscular, AsDirected hydralazine 25 mg Tablet 25 mg 1 tab(s), Oral, q6h ondansetron 2 mg/ 1 mL 2 mL INJ 4 mg 2 mL, IV Push, q4h phenol topical 1.4% Spr 1 spray(s), Topical, q1h polyethylene glycol 3350 - UD packet 17 gram(s) 15 mL, Oral, qDay potassium chloride (PMX) 20 mEq 50 mL, IV Piggyback, AsDirected potassium chloride (PMX) 15 mEq 50 mL, IV Piggyback, AsDirected potassium chloride (PMX) 10 mEq 50 mL, IV Piggyback, AsDirected tramadol 50 mg Tablet 25 mg 0.5 tab(s), Oral, q4h tramadol 50 mg Tablet 50 mg 1 tab(s), Oral, q6h Lab Results 01/10 05:17 WBC: 9.7 Hgb: 9.1 L Hct: 27.4 L Platelet: 270 Neutrophil %: 74.8 Protime: 34.6 H PT International Ratio: 2.8 Glucose Level: 87 Sodium Level: 142 Potassium Level: 3.2 L BUN: 36.0 H Creatinine Lvl (s): 1.26 01/10 01:54 Protime: 28.6 H PT International Ratio: 2.4 01/09 20:08 Protime: 112.9 H PT International Ratio: 9.1 C 01/09 12:50 Protime: 77.9 H PT International Ratio: 6.3 C 01/09 05:30 WBC: 10.9 H Hgb: 9.0 L Hct: 27.1 L Platelet: 246 Neutrophil %: 74.9 Protime: 58.5 H PT International Ratio: 4.8 Glucose Level: 76 L Sodium Level: 143 Potassium Level: 3.5 BUN: 47.0 H Creatinine Lvl (s): 1.54 H EKG EKG - Completed -- 01/08/22 7:07:00 EDT Assessment/Plan 1. CAD (coronary artery disease) EF 45-50% S/P CABG 1 01/05/2022 Currently on room air. Attempted to use Coumadin as anticoagulant for atrial fibrillation became supratherapeutic. INR currently 2.8, continue to monitor. A. fib postop, on amiodarone. Currently ratecontrolled in the 70's. Keep AV temporary pacing wires today. Remains hypertensive. We will increase lisinopril to 40 mg daily. Start low-dose beta-nicole. Potassium level 3.2, replaced Currently on aspirin, beta-nicole and statin. 2. NSTEMI (non-ST elevated myocardial infarction) 3. Acute blood loss anemia Currently stable no active bleeding 4. QUIN (acute kidney injury) Creatinine decreased to 1.26 5. CKD (chronic kidney disease), stage III improved 6. AF (paroxysmal atrial fibrillation) on amio and low dose beta nicole started today, was on Eliquis at home 7. Diabetes Hgb A1c 8.4% Glucose 87-207, AI E following. On sliding scale, lantus, metformin and jardiance 8. HTN (hypertension) We will increase lisinopril to 40 mg daily, will consider adding amlodipine if needed 9. HLD (hyperlipidemia) On statin 10. Hypothyroid On levothyroxine 11. Giant cell arteritis s/p temporal artery biopsy 12/24/2021 On prednisone 12. PVD (peripheral vascular disease) s/p bilateral BKA 2019 13. 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 Leukocytosis 16. Pleural effusion, left Plan: Rounded and discussed with Dr. Hernandez CT of the chest without contrast today Lopressor 40 mg daily Lopressor 6.25 mg twice daily Continue to reinforce cough and deep breathe and incentive spirometry. Monitor BP. Pro time, CBC and BMP in a.m. Digitally Signed by NICHOLE RODRIGUEZ on 01/10/2022 08:37 AM [id number] Note Date of Service 01/09/2022 Repeat INR 6.3. Aquamephyton 10 mg SQ x1. Repeat INR in 4 hours. Digitally Signed by KASSIDY SHANKAR on 01/09/2022 02:03 PM [id number] Endocrinology Progress note Date of Service 01/09/22 Chief Complaint Diabetes Subjective The patient is feeling tired. There were no acute medical issues overnight. There were no new complaints. I reviewed the chart, vitals and medications. Objective Vitals and Measurements T: 36.6 C (Oral) TMIN: 36.5 C (Oral) TMAX: 36.8 C (Oral) HR: 62(Monitored) RR: 18 BP: 164/70 SpO2: 93% WT: 103.3 kg Intake and Output 7AM Yesterday to 7AM Today Intake and Output (Last 24 hours) Intake Oral Intake 760.00 Supplement Intake 240.00 Output Urine Voided 750.00 Stool Count 0.00 Emesis Count 0.00 Total Summary Total Intake 1000.00 Total Output 750.00 Fluid Balance 250.00 Physical Exam Psychiatric: In a pleasant mood General appearance: Patient comfortable, not in acute distress Chest: Air entry equal, No crepitations Heart: S1-S2 normal, no murmur Neurological: Alert oriented x3, no focal deficit Weight Current Weight Dosing Weight: 81.5 kg (01/03/22) Current Weight: 103.3 kg (01/09/22) Dosing Weight: 81.5 kg (01/03/22) Current Weight: 102.6 kg (01/08/22) Medications Medications (31) Active Scheduled: (16) amiodarone 200 mg tablet 400 mg 2 tab(s), Oral, BIDM amiodarone 200 mg tablet 200 mg 1 tab(s), Oral, qDayM aspirin 81 mg EC 81 mg 1 tab(s), Oral, qDayM atorvastatin 40 mg tablet 40 mg 1 tab(s), Oral, qDay citalopram 10 mg tablet 10 mg 1 tab(s), Oral, qAM docusate calcium 240 mg Capsule 240 mg 1 cap(s), Oral, BID insulin glargine 10 unit(s) 0.1 mL, Subcutaneous (INT), BID insulin lispro 100 units/mL Soln (3 mL) Give 2-18 units/dose, Subcutaneous, achs levothyroxine 50 mcg tablet 50 mcg 1 tab(s), Oral, qDayAC lisinopril 10 mg tablet 10 mg 1 tab(s), Oral, BID metformin 500 mg ER tablet 500 mg 1 tab(s), Oral, BID multivitamin (Chromagen Forte) with iron Vitamin B Complex with C, Folic Acid and Iron tablet 1 tab(s), Oral, qDay mupirocin 2% Ointment 22 Gram(s) tube 1 femi, Nostril, each, BID pantoprazole 40 mg EC tablet 40 mg 1 tab(s), Oral, qDayAC predniSONE 10 mg tablet 10 mg 1 tab(s), Oral, qDay vitamin A 10,000 units capsule 10,000 unit(s) 1 cap(s), Oral, qDay Continuous: (0) PRN: (15) acetaminophen 325 mg Tablet 650 mg 2 tab(s), Oral, q4h Al hydrox/Mg hydrox/simethicone 200-200-20 mg/5 mL Susp UD 30 mL, Oral, q2h bisacodyl 10 mg Suppository 10 mg 1 supp, Rectal, qDay bismuth subsalicylate 262 mg/15 mL 240 mL 30 mL, Oral, AsDirected dextrose 50% Solution Disp syringe 50 mL 25 g 50 mL, IV Push, AsDirected dextrose 50% Solution Disp syringe 50 mL 12.5 g 25 mL, IV Push, AsDirected glucagon recombinant 1 mg 1 mg 1 mL, Intramuscular, AsDirected ondansetron 2 mg/ 1 mL 2 mL INJ 4 mg 2 mL, IV Push, q4h phenol topical 1.4% Spr 1 spray(s), Topical, q1h polyethylene glycol 3350 - UD packet 17 gram(s) 15 mL, Oral, qDay potassium chloride (PMX) 20 mEq 50 mL, IV Piggyback, AsDirected potassium chloride (PMX) 15 mEq 50 mL, IV Piggyback, AsDirected potassium chloride (PMX) 10 mEq 50 mL, IV Piggyback, AsDirected tramadol 50 mg Tablet 25 mg 0.5 tab(s), Oral, q4h tramadol 50 mg Tablet 50 mg 1 tab(s), Oral, q6h Lab Results 01/09 05:30 WBC: 10.9 H Hgb: 9.0 L Hct: 27.1 L Platelet: 246 Neutrophil %: 74.9 Protime: 58.5 H PT International Ratio: 4.8 Glucose Level: 76 L Sodium Level: 143 Potassium Level: 3.5 BUN: 47.0 H Creatinine Lvl (s): 1.54 H 01/08 20:05 Potassium Level: 3.9 01/08 14:21 Potassium Level: 3.8 01/08 04:20 WBC: 12.6 H Hgb: 9.0 L Hct: 27.1 L Platelet: 207 Neutrophil %: 84.5 H Protime: 15.7 H PT International Ratio: 1.3 Glucose Level: 145 H Sodium Level: 140 Potassium Level: 3.5 BUN: 43.0 H Creatinine Lvl (s): 1.60 H Group Detail Date Value w/Units Flags Normal Range Normal Reference Text Comment Ind Glucose Testing Blood Glucose, Capillary 01/09/2022 10:55:00 EDT 120 mg/dL DC 82-115 Glucose Testing Blood Glucose, Capillary 01/09/2022 08:14:00 EDT 96 mg/dL 82-115 Glucose Testing Blood Glucose, Capillary 01/09/2022 07:38:00 EDT 68 mg/dL LOW 82-115 Y Glucose Testing Glucose Level 01/09/2022 05:30:00 EDT 76 mg/dL LOW 82-115 Glucose Testing Blood Glucose, Capillary 01/08/2022 21:03:00 EDT 138 mg/dL HI 82-115 Assessment/Plan 1. CAD (coronary artery disease) EF 45-50% S/P CABG 1 01/05/2022 2. NSTEMI (non-ST elevated myocardial infarction) 3. Acute blood loss anemia 4. QUIN (acute kidney injury) 5. CKD (chronic kidney disease), stage III 6. AF (paroxysmal atrial fibrillation) 7. Diabetes Hgb A1c 8.4% 8. HTN (hypertension) 9. HLD (hyperlipidemia) 10. Hypothyroid 11. 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 PVD (peripheral vascular disease) s/p bilateral BKA 2019 13. 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 Leukocytosis This is a 81-year-old male with past medical history of atrial fibrillation (previously on Eliquis and amiodarone-discontinued 09/01/2021), diabetes type 2, hypothyroidism, mood disorder, peripheral vascular disease status post bilateral below the knee amputations in 2019, hyperlipidemia, hypertension, chronic kidney disease stage III, Singh's palsy, and giant cell arteritis status post temporal artery biopsy by Dr. Weinstein on 12/24/2021-on prednisone. He resides at [facility] past 3 months. He presented to [facility] on December 30, 2021 due to a sudden onset of alteredmental status and shortness of breath. At [facility], he was noted to have acute kidney injury with creatinine 2.3 and elevated troponin at 3577. EKG revealed normal sinus rhythm without evidenceof ST elevation or depression. Negative for COVID-19 at [facility]. He was transferred to [facility] for further evaluation. Echocardiogram on December 30, 2021 revealed an EF of 45 to 50% and mild MR. 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 Cardiothoracic surgery was consulted for possible surgical myocardial vascularization. 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 Endocrine consult placed by CTS for diabetic management. Longstanding type II diabetic with A1c of 8.4%. Currently residing at [facility] with orders in place for Humalog 32 units with lunch and supper, Toujeo 70 units nightly, sliding scale 3 to 12 units with meals and at bedtime. History of hyperlipidemia noted. Total cholesterol 129, triglycerides 152, HDL 24, LDL is 75. Continue on Lipitor 40 mg daily inpatient. History of hypothyroidism on levothyroxine 50 mcg daily. Continue on the same. TSH within range 3.091. Last 24 Hours: On chronic prednisone 10 mg daily for giant cell arteritis. Whie on Lantus 25 units twice daily with Humalog 2-18 sliding scale achs2 and metformin, the patient had significant low blood sugars today morning. His lowest sugars were 76 and 68. Based on his blood sugars, I decrease his dose of Lantus insulin to 10 units twice daily. I continued metformin and sliding scale. We will continue monitoring his blood sugars and recommend the changes as needed from time to time. Orders: insulin glargine, Start: 01/09/22 9:00:00 EDT, Dose = 10 unit(s), = 0.1 mL, Subcutaneous (INT), BID, Rate: 0 mL/hr, Infuse over: 0 minute(s), 0, 01/09/22 8:32:00 EDT Digitally Signed by BERNICE MONREAL MD on 01/09/2022 01:13 PM [id number] Note Date of Service 01/09/2022 POD #4 Chief Complaint This is an 81-year-old male with past medical history of atrial fibrillation previously on Eliquis and amiodarone but discontinued in August 2021 by his PCP, diabetes, hypothyroidism, mood disorder, peripheral vascular disease status post bilateral below the knee amputations in 2019, hyperlipidemia,hypertension, chronic kidney disease stage III with QUIN this admission, Singh's palsy and giant cellarteritis on prednisone. He resides at [facility]. He presented on 12/30/2021 with sudden onset ofaltered mental status and shortness of breath. Troponin 3577. Creatinine elevated 2.3. He was transferred to [facility] for [facility]. Echocardiogram completed showing EF of 45 to 50% with mild MR. Heart catheterization completed showing multivessel disease. On 01/05/2022 he underwenta coronary bypass graft x1 with MOLINA to the LAD per Dr. Hernandez. He tolerated the procedure welland was transferred to CV SICU in stable condition. Required Levophed for blood pressure support. Extubated on operative night. POD #1 up to the chair via Giles lift. Epinephrine weaned off. A paced at 80 with underlying sinus rhythm in the 60s. Transferred to stepdown. POD #2 chest tubes discontinued. Hydrocortisone decreased. Lisinopril initiated. Creatinine stabilizing. Initiated on Coumadin. Had episode of atrial fibrillation placed on amiodarone protocol but only received oral. Followed by nephrology. POD #3 heart rate less than 55 overnight requiring pacing. Currently atrial fibrillation rate 90. No beta-nicole secondary to episodes of bradycardia. [1] POD #4 NSR. Complaining of feeling tired. INR 4.8. Hold Coumadin. Repeat INR at 12 noon. Increase Lisinopril. Subjective Feeling tired Objective Vitals and Measurements T: 36.6 C (Oral) TMIN: 36.5 C (Oral) TMAX: 36.8 C (Oral) HR: 62(Monitored) RR: 18 BP: 164/70 SpO2: 93% WT: 103.3 kg Intake and Output 7AM Yesterday to 7AM Today Intake and Output (Last 24 hours) Intake Oral Intake 760.00 Output Urine Voided 750.00 Stool Count 0.00 Emesis Count 0.00 Total Summary Total Intake 760.00 Total Output 750.00 Fluid Balance 10.00 Physical Exam Neurological: Alert and orient x3, appropriate Lungs: Diminished in the bases, room air SaO2 91 to 92% Heart: Regular S1-S2, sinus rhythm rate 60s, temporary V wires intact Abdomen: Soft, positive bowel sounds, positive BM Extremities: Bilateral below the knee amputations, no edema Incisions: Midsternal without drainage Continue Central Line: For IV access Disposition: [place] Weight Current Weight Dosing Weight: 81.5 kg (01/03/22) Current Weight: 103.3 kg (01/09/22) Dosing Weight: 81.5 kg (01/03/22) Current Weight: 102.6 kg (01/08/22) Medications Medications (31) Active Scheduled: (16) amiodarone 200 mg tablet 400 mg 2 tab(s), Oral, BIDM amiodarone 200 mg tablet 200 mg 1 tab(s), Oral, qDayM aspirin 81 mg EC 81 mg 1 tab(s), Oral, qDayM atorvastatin 40 mg tablet 40 mg 1 tab(s), Oral, qDay citalopram 10 mg tablet 10 mg 1 tab(s), Oral, qAM docusate calcium 240 mg Capsule 240 mg 1 cap(s), Oral, BID insulin glargine 10 unit(s) 0.1 mL, Subcutaneous (INT), BID insulin lispro 100 units/mL Soln (3 mL) Give 2-18 units/dose, Subcutaneous, achs levothyroxine 50 mcg tablet 50 mcg 1 tab(s), Oral, qDayAC lisinopril 10 mg tablet 10 mg 1 tab(s), Oral, BID metformin 500 mg ER tablet 500 mg 1 tab(s), Oral, BID multivitamin (Chromagen Forte) with iron Vitamin B Complex with C, Folic Acid and Iron tablet 1 tab(s), Oral, qDay mupirocin 2% Ointment 22 Gram(s) tube 1 femi, Nostril, each, BID pantoprazole 40 mg EC tablet 40 mg 1 tab(s), Oral, qDayAC predniSONE 10 mg tablet 10 mg 1 tab(s), Oral, qDay vitamin A 10,000 units capsule 10,000 unit(s) 1 cap(s), Oral, qDay Continuous: (0) PRN: (15) acetaminophen 325 mg Tablet 650 mg 2 tab(s), Oral, q4h Al hydrox/Mg hydrox/simethicone 200-200-20 mg/5 mL Susp UD 30 mL, Oral, q2h bisacodyl 10 mg Suppository 10 mg 1 supp, Rectal, qDay bismuth subsalicylate 262 mg/15 mL 240 mL 30 mL, Oral, AsDirected dextrose 50% Solution Disp syringe 50 mL 25 g 50 mL, IV Push, AsDirected dextrose 50% Solution Disp syringe 50 mL 12.5 g 25 mL, IV Push, AsDirected glucagon recombinant 1 mg 1 mg 1 mL, Intramuscular, AsDirected ondansetron 2 mg/ 1 mL 2 mL INJ 4 mg 2 mL, IV Push, q4h phenol topical 1.4% Spr 1 spray(s), Topical, q1h polyethylene glycol 3350 - UD packet 17 gram(s) 15 mL, Oral, qDay potassium chloride (PMX) 20 mEq 50 mL, IV Piggyback, AsDirected potassium chloride (PMX) 15 mEq 50 mL, IV Piggyback, AsDirected potassium chloride (PMX) 10 mEq 50 mL, IV Piggyback, AsDirected tramadol 50 mg Tablet 25 mg 0.5 tab(s), Oral, q4h tramadol 50 mg Tablet 50 mg 1 tab(s), Oral, q6h Lab Results 01/09 05:30 WBC: 10.9 H Hgb: 9.0 L Hct: 27.1 L Platelet: 246 Neutrophil %: 74.9 Protime: 58.5 H PT International Ratio: 4.8 Glucose Level: 76 L Sodium Level: 143 Potassium Level: 3.5 BUN: 47.0 H Creatinine Lvl (s): 1.54 H 01/08 20:05 Potassium Level: 3.9 01/08 14:21 Potassium Level: 3.8 01/08 04:20 WBC: 12.6 H Hgb: 9.0 L Hct: 27.1 L Platelet: 207 Neutrophil %: 84.5 H Protime: 15.7 H PT International Ratio: 1.3 Glucose Level: 145 H Sodium Level: 140 Potassium Level: 3.5 BUN: 43.0 H Creatinine Lvl (s): 1.60 H Imaging Results and Diagnostics XR Chest 2 Views Result Date: January 09, 2022 Verified By: SJ MANTILLA DO CLINICAL STATEMENT: IMPRESSION: 1. Small left pleural effusion with adjacent atelectasis/other airspacedisease, mildly worsened from prior exam.2. Similar left-sided interstitial opacities to prior exam which may reflectbronchovascular crowding, however a component of asymmetric edema is alsoconsidered.3. Mild right basilar subsegmental atelectasis. Assessment/Plan 1. CAD (coronary artery disease) EF 45-50% S/P CABG 1 01/05/2022 ASA, atorvastatin, no beta-nicole secondary to intermittent bradycardia 2. NSTEMI (non-ST elevated myocardial infarction) No Plavix at discharge secondary to being on Coumadin 3. Acute blood loss anemia H&H 9 and 27.1 4. QUIN (acute kidney injury) BUN/creatinine 47 and 1.54, at baseline, plan follow-up with Dr. Montgomery from [place] at discharge currently NSR rate 60, Coumadin on hold secondary to elevated INR 4.8. 5. CKD (chronic kidney disease), stage III 6. AF (paroxysmal atrial fibrillation) Currently NSR rate 60, Coumadin on hold secondary to elevated INR 4.8.Repeat INR at noon. On amiodarone. Home amiodarone and Eliquis were both discontinued in August 2021 7. Diabetes Hgb A1c 8.4% Glucose 68-177, [place] inpatient endocrinology following 8. HTN (hypertension) Blood pressure 118/91-164/70, increase lisinopril 9. HLD (hyperlipidemia) Atorvastatin 10. Hypothyroid Levothyroxine 11. 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 PVD (peripheral vascular disease) s/p bilateral BKA 2019 13. 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 Leukocytosis Resolved, afebrile Discussed with Dr. Mathias, hold Coumadin, repeat INR at noon [1] Progress Note; KASSIDY SHANKAR 01/08/2022 10:58 EDT Digitally Signed by KASSIDY SHANKAR on 01/09/2022 11:51 AM [id number] Note ORIGINAL EXAMINATION: TWO XRAY VIEWS OF THE CHEST 01/09/2022 6:53 am COMPARISON: 01/08/2022 HISTORY: ORDERING SYSTEM PROVIDED HISTORY: Reason for Exam: abnormal breath sounds FINDINGS: Sternotomy changes are again noted. No significant change in left subclavian central venous catheter. Heart size is stable given differences in this in technique and inspiratory effort. Small left pleural effusion with adjacent atelectasis/consolidation is noted, mildly more confluent on today's exam. Left-sided interstitial opacities/prominence is similar to prior exam. Mild right basilar subsegmental atelectasis. No appreciable pneumothorax. No right pleural effusion detected. Degenerative changes are seen of the spine. IMPRESSION: 1. Small left pleural effusion with adjacent atelectasis/other airspace disease, mildly worsened from prior exam. 2. Similar left-sided interstitial opacities to prior exam which may reflect bronchovascular crowding, however a component of asymmetric edema is also considered. 3. Mild right basilar subsegmental atelectasis. Interpreted by: Sj Mantilla DO Preliminary Report By: Sj Mantilla DO Electronically signed By Sj Mantilla DO Dictated Date: 01/09/2022 7:46:00 AM Prelim Date: 01/09/2022 7:51:53 AM Sign Date: 01/09/2022 7:51:53 AM Ordering Provider: [facility]07-24-2022 Note ORIGINAL EXAMINATION: TWO XRAY VIEWS OF THE CHEST 01/09/2022 6:53 am COMPARISON: 01/08/2022 HISTORY: ORDERING SYSTEM PROVIDED HISTORY: Reason for Exam: abnormal breath sounds FINDINGS: Sternotomy changes are again noted. No significant change in left subclavian central venous catheter. Heart size is stable given differences in this in technique and inspiratory effort. Small left pleural effusion with adjacent atelectasis/consolidation is noted, mildly more confluent on today's exam. Left-sided interstitial opacities/prominence is similar to prior exam. Mild right basilar subsegmental atelectasis. No appreciable pneumothorax. No right pleural effusion detected. Degenerative changes are seen of the spine. IMPRESSION: 1. Small left pleural effusion with adjacent atelectasis/other airspace disease, mildly worsened from prior exam. 2. Similar left-sided interstitial opacities to prior exam which may reflect bronchovascular crowding, however a component of asymmetric edema is also considered. 3. Mild right basilar subsegmental atelectasis. Interpreted by: Sj Mantilla DO Preliminary Report By: Sj Mantilla DO Electronically signed By Sj Mantilla DO Dictated Date: 01/09/2022 7:46:00 AM Prelim Date: 01/09/2022 7:51:53 AM Sign Date: 01/09/2022 7:51:53 AM Ordering Provider: [facility]07-23-2022 Endocrinology Progress note Date of Service 01/08/22 Chief Complaint Diabetes mellitus Subjective The patient is feeling fine. There were no acute medical issues overnight. There were no new complaints. I reviewed the chart, vitals and medications. Objective Vitals and Measurements T: 36.8 C (Oral) TMIN: 36.5 C (Oral) TMAX: 36.8 C (Oral) HR: 62(Monitored) RR: 20 BP: 116/59 SpO2: 92% WT: 102.6 kg Intake and Output 7AM Yesterday to 7AM Today Intake and Output (Last 24 hours) Intake Oral Intake 720.00 Output Urine Voided 850.00 Stool Count 1.00 Total Summary Total Intake 720.00 Total Output 850.00 Fluid Balance -130.00 Physical Exam Psychiatric: In a pleasant mood General appearance: Patient comfortable, not in acute distress Chest: Air entry equal, No crepitations Heart: S1-S2 normal, no murmur Neurological: Alert oriented x3, no focal deficit Weight Current Weight Dosing Weight: 81.5 kg (01/03/22) Current Weight: 102.6 kg (01/08/22) Dosing Weight: 81.5 kg (01/03/22) Current Weight: 105.7 kg (01/07/22) Medications Medications (32) Active Scheduled: (17) amiodarone 200 mg tablet 400 mg 2 tab(s), Oral, BIDM amiodarone 200 mg tablet 200 mg 1 tab(s), Oral, qDayM aspirin 81 mg EC 81 mg 1 tab(s), Oral, qDayM atorvastatin 40 mg tablet 40 mg 1 tab(s), Oral, qDay citalopram 10 mg tablet 10 mg 1 tab(s), Oral, qAM docusate calcium 240 mg Capsule 240 mg 1 cap(s), Oral, BID insulin glargine 25 unit(s) 0.25 mL, Subcutaneous (INT), BID insulin lispro 100 units/mL Soln (3 mL) Give 2-18 units/dose, Subcutaneous, achs levothyroxine 50 mcg tablet 50 mcg 1 tab(s), Oral, qDayAC lisinopril 5 mg tablet 5 mg 1 tab(s), Oral, BID metformin 500 mg ER tablet 500 mg 1 tab(s), Oral, BID multivitamin (Chromagen Forte) with iron Vitamin B Complex with C, Folic Acid and Iron tablet 1 tab(s), Oral, qDay mupirocin 2% Ointment 22 Gram(s) tube 1 femi, Nostril, each, BID pantoprazole 40 mg EC tablet 40 mg 1 tab(s), Oral, qDayAC predniSONE 10 mg tablet 10 mg 1 tab(s), Oral, qDay vitamin A 10,000 units capsule 10,000 unit(s) 1 cap(s), Oral, qDay warfarin 5 mg tablet 5 mg 1 tab(s), Oral, qDay Continuous: (0) PRN: (15) acetaminophen 325 mg Tablet 650 mg 2 tab(s), Oral, q4h Al hydrox/Mg hydrox/simethicone 200-200-20 mg/5 mL Susp UD 30 mL, Oral, q2h bisacodyl 10 mg Suppository 10 mg 1 supp, Rectal, qDay bismuth subsalicylate 262 mg/15 mL 240 mL 30 mL, Oral, AsDirected dextrose 50% Solution Disp syringe 50 mL 25 g 50 mL, IV Push, AsDirected dextrose 50% Solution Disp syringe 50 mL 12.5 g 25 mL, IV Push, AsDirected glucagon recombinant 1 mg 1 mg 1 mL, Intramuscular, AsDirected ondansetron 2 mg/ 1 mL 2 mL INJ 4 mg 2 mL, IV Push, q4h phenol topical 1.4% Spr 1 spray(s), Topical, q1h polyethylene glycol 3350 - UD packet 17 gram(s) 15 mL, Oral, qDay potassium chloride (PMX) 20 mEq 50 mL, IV Piggyback, AsDirected potassium chloride (PMX) 15 mEq 50 mL, IV Piggyback, AsDirected potassium chloride (PMX) 10 mEq 50 mL, IV Piggyback, AsDirected tramadol 50 mg Tablet 25 mg 0.5 tab(s), Oral, q4h tramadol 50 mg Tablet 50 mg 1 tab(s), Oral, q6h Lab Results 01/08 14:21 Potassium Level: 3.8 01/08 04:20 WBC: 12.6 H Hgb: 9.0 L Hct: 27.1 L Platelet: 207 Neutrophil %: 84.5 H Protime: 15.7 H PT International Ratio: 1.3 Glucose Level: 145 H Sodium Level: 140 Potassium Level: 3.5 BUN: 43.0 H Creatinine Lvl (s): 1.60 H 01/07 09:30 Protime: 12.4 PT International Ratio: 1.0 Group Detail Date Value w/Units Flags Normal Range Normal Reference Text Comment Ind Glucose Testing Blood Glucose, Capillary 01/08/2022 16:28:00 EDT 132 mg/dL DC 82-115 Glucose Testing Blood Glucose, Capillary 01/08/2022 11:29:00 EDT 177 mg/dL DC 82-115 Y Glucose Testing Blood Glucose, Capillary 01/08/2022 07:10:00 EDT 141 mg/dL DC 82-115 Glucose Testing Glucose Level 01/08/2022 04:20:00 EDT 145 mg/dL DC 82-115 Assessment/Plan 1. CAD (coronary artery disease) EF 45-50% S/P CABG 1 01/05/2022 2. NSTEMI (non-ST elevated myocardial infarction) 3. Acute blood loss anemia 4. QUIN (acute kidney injury) 5. CKD (chronic kidney disease), stage III 6. AF (paroxysmal atrial fibrillation) 7. Diabetes Hgb A1c 8.4% 8. HTN (hypertension) 9. HLD (hyperlipidemia) 10. Hypothyroid 11. 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 PVD (peripheral vascular disease) s/p bilateral BKA 2019 13. 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 Leukocytosis This is a 81-year-old male with past medical history of atrial fibrillation (previously on Eliquis and amiodarone-discontinued 09/01/2021), diabetes type 2, hypothyroidism, mood disorder, peripheral vascular disease status post bilateral below the knee amputations in 2019, hyperlipidemia, hypertension, chronic kidney disease stage III, Singh's palsy, and giant cell arteritis status post temporal artery biopsy by Dr. Weinstein on 12/24/2021-on prednisone. [facility] He presented to [facility] on December 30, 2021 due to a sudden onset of alteredmental status and shortness of breath. At [facility], he was noted to have acute kidney injury with creatinine 2.3 and elevated troponin at 3577. EKG revealed normal sinus rhythm without evidenceof ST elevation or depression. Negative for COVID-19 at [facility]. He was transferred to [facility] for further evaluation. Echocardiogram on December 30, 2021 revealed an EF of 45 to 50% and mild MR. 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 Cardiothoracic surgery was consulted for possible surgical myocardial vascularization. 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 Endocrine consult placed by CTS for diabetic management. Longstanding type II diabetic with A1c of 8.4%. Currently residing at [facility] with orders in place for Humalog 32 units with lunch and supper, Toujeo 70 units nightly, sliding scale 3 to 12 units with meals and at bedtime. History of hyperlipidemia noted. Total cholesterol 129, triglycerides 152, HDL 24, LDL is 75. Continue on Lipitor 40 mg daily inpatient. History of hypothyroidism on levothyroxine 50 mcg daily. Continue on the same. TSH within range 3.091. Last 24 Hours: On chronic prednisone 10 mg daily for giant cell arteritis. On Lantus 25 units twice daily with a 2-18 sliding scale achs2. On metformin at 500 mg twice daily.Blood glucose trends reviewed. Well controlled. No hypoglycemia. Renal function noted, GFR 37. Improving. He does have history of CKD. D/w patient risk for labile BG related to altered renal function. Encouraged protein-based snack at bedtime. May add low-dose SGLT2 at discharge based upon renal function, clinical status Will continue to follow while inpatient. Digitally Signed by BERNICE MONREAL MD on 01/08/2022 05:20 PM [id number] Note Date of Service 01/08/2022 POD #3 Chief Complaint This is an 81-year-old male with past medical history of atrial fibrillation previously on Eliquis and amiodarone but discontinued in August 2021 by his PCP, diabetes, hypothyroidism, mood disorder, peripheral vascular disease status post bilateral below the knee amputations in 2019, hyperlipidemia,hypertension, chronic kidney disease stage III with QUIN this admission, Singh's palsy and giant cellarteritis on prednisone. He resides at [facility]. He presented on 12/30/2021 with sudden onset ofaltered mental status and shortness of breath. Troponin 3577. Creatinine elevated 2.3. He was transferred [facility]. Echocardiogram completed showing EF of 45 to 50%with mild MR. Heart catheterization completed showing multivessel disease. On 01/05/2022 he underwent a coronary bypass graft x1 with MOLINA to the LAD per Dr. Hernandez. He tolerated the procedure well and was transferred to CV SICU in stable condition. Required Levophed for blood pressure support. Extubated on operative night. POD #1 up to the chair via Giles lift. Epinephrine weaned off. A pacedat 80 with underlying sinus rhythm in the 60s. Transferred to stepdown. POD #2 chest tubes discontinued. Hydrocortisone decreased. Lisinopril initiated. Creatinine stabilizing. Initiated on Coumadin.Had episode of atrial fibrillation placed on amiodarone protocol but only received oral. Followed by nephrology. POD #3 heart rate less than 55 overnight requiring pacing. Currently atrial fibrillation rate 90. No beta-nicole secondary to episodes of bradycardia. Plans to return to [facility] Subjective No complaints Objective Vitals and Measurements T: 36.5 C (Oral) TMIN: 36.5 C (Oral) TMAX: 36.8 C (Oral) HR: 113(Monitored) RR: 20 BP: 130/87 SpO2:95% WT: 102.6 kg Intake and Output 7AM Yesterday to 7AM Today Intake and Output (Last 24 hours) Intake Oral Intake 742.00 Output Urine Voided 900.00 Stool Count 1.00 Total Summary Total Intake 742.00 Total Output 900.00 Fluid Balance -158.00 Physical Exam Neurological: Alert and orient x3, appropriate Lungs: Mildly diminished in the bases, On room air with SaO2 95% Heart: Irregular S1-S2, atrial fibrillation rate 90s, temporary AV wires connected to off pacer Abdomen: Soft, positive bowel sounds, positive BM Extremities: Bilateral below the knee amputations, no edema Incisions: Midsternal without drainage Continue central line: Poor IV access Weight Current Weight Dosing Weight: 81.5 kg (01/03/22) Current Weight: 102.6 kg (01/08/22) Dosing Weight: 81.5 kg (01/03/22) Current Weight: 105.7 kg (01/07/22) Medications Medications (32) Active Scheduled: (17) amiodarone 200 mg tablet 400 mg 2 tab(s), Oral, BIDM amiodarone 200 mg tablet 200 mg 1 tab(s), Oral, qDayM aspirin 81 mg EC 81 mg 1 tab(s), Oral, qDayM atorvastatin 40 mg tablet 40 mg 1 tab(s), Oral, qDay citalopram 10 mg tablet 10 mg 1 tab(s), Oral, qAM docusate calcium 240 mg Capsule 240 mg 1 cap(s), Oral, BID insulin glargine 25 unit(s) 0.25 mL, Subcutaneous (INT), BID insulin lispro 100 units/mL Soln (3 mL) Give 2-18 units/dose, Subcutaneous, achs levothyroxine 50 mcg tablet 50 mcg 1 tab(s), Oral, qDayAC lisinopril 5 mg tablet 5 mg 1 tab(s), Oral, BID metformin 500 mg ER tablet 500 mg 1 tab(s), Oral, BID multivitamin (Chromagen Forte) with iron Vitamin B Complex with C, Folic Acid and Iron tablet 1 tab(s), Oral, qDay mupirocin 2% Ointment 22 Gram(s) tube 1 femi, Nostril, each, BID pantoprazole 40 mg EC tablet 40 mg 1 tab(s), Oral, qDayAC predniSONE 10 mg tablet 10 mg 1 tab(s), Oral, qDay vitamin A 10,000 units capsule 10,000 unit(s) 1 cap(s), Oral, qDay warfarin 5 mg tablet 5 mg 1 tab(s), Oral, qDay Continuous: (0) PRN: (15) acetaminophen 325 mg Tablet 650 mg 2 tab(s), Oral, q4h Al hydrox/Mg hydrox/simethicone 200-200-20 mg/5 mL Susp UD 30 mL, Oral, q2h bisacodyl 10 mg Suppository 10 mg 1 supp, Rectal, qDay bismuth subsalicylate 262 mg/15 mL 240 mL 30 mL, Oral, AsDirected dextrose 50% Solution Disp syringe 50 mL 25 g 50 mL, IV Push, AsDirected dextrose 50% Solution Disp syringe 50 mL 12.5 g 25 mL, IV Push, AsDirected glucagon recombinant 1 mg 1 mg 1 mL, Intramuscular, AsDirected ondansetron 2 mg/ 1 mL 2 mL INJ 4 mg 2 mL, IV Push, q4h phenol topical 1.4% Spr 1 spray(s), Topical, q1h polyethylene glycol 3350 - UD packet 17 gram(s) 15 mL, Oral, qDay potassium chloride (PMX) 20 mEq 50 mL, IV Piggyback, AsDirected potassium chloride (PMX) 15 mEq 50 mL, IV Piggyback, AsDirected potassium chloride (PMX) 10 mEq 50 mL, IV Piggyback, AsDirected tramadol 50 mg Tablet 25 mg 0.5 tab(s), Oral, q4h tramadol 50 mg Tablet 50 mg 1 tab(s), Oral, q6h Lab Results 01/08 04:20 WBC: 12.6 H Hgb: 9.0 L Hct: 27.1 L Platelet: 207 Neutrophil %: 84.5 H Protime: 15.7 H PT International Ratio: 1.3 Glucose Level: 145 H Sodium Level: 140 Potassium Level: 3.5 BUN: 43.0 H Creatinine Lvl (s): 1.60 H 01/07 09:30 Protime: 12.4 PT International Ratio: 1.0 01/07 05:08 WBC: 13.5 H Hgb: 9.2 L Hct: 28.0 L Platelet: 186 Neutrophil %: 86.3 H Glucose Level: 124 H Sodium Level: 138 Potassium Level: 3.9 BUN: 34.0 H Creatinine Lvl (s): 1.77 H Imaging Results and Diagnostics XR Chest 1 View Result Date: January 08, 2022 Verified By: MAYA SARABIA MD CLINICAL STATEMENT: IMPRESSION: Residual small left pleural effusion and left basilar atelectasis/airspacedisease status post left chest tube removal. I have personally reviewed the images of this examination and agree with theresident's findings and interpretation. Assessment/Plan 1. CAD (coronary artery disease) EF 45-50% S/P CABG 1 01/05/2022 ASA, atorvastatin, no beta-nicole secondary to intermittent bradycardia 2. NSTEMI (non-ST elevated myocardial infarction) No Plavix at discharge secondary to being on Coumadin 3. Acute blood loss anemia Stable, H&H 9 and 27.1 4. QUIN (acute kidney injury) BUN/creatinine 43 and 1.6, at baseline, plan follow-up with Dr. Montgomery from [facility] at discharge, Urineoutput 1100 cc last 24 hours 5. CKD (chronic kidney disease), stage III 6. AF (paroxysmal atrial fibrillation) Currently atrial fibrillation rate 90, Coumadin, amiodarone, patient had previously been on amiodarone and Eliquis but these were discontinued in August 2021 7. Diabetes Hgb A1c 8.4% Glucose 141-249, [facility] inpatient endocrinology following 8. HTN (hypertension) Blood pressure 119/56-153/75, Lisinopril 9. HLD (hyperlipidemia) Atorvastatin 10. Hypothyroid Levothyroxine 11. 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 PVD (peripheral vascular disease) s/p bilateral BKA 2020 Has not been able to utilize prosthesis secondary to discomfort 13. 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 Leukocytosis Afebrile, improving Discussed with Dr. Mathias, no pacing unless heart rate consistently less than 50, continue Coumadin 5 mg daily Digitally Signed by KASSIDY SHANKAR on 01/08/2022 11:02 AM [id number] Note ORIGINAL EXAMINATION: ONE XRAY VIEW OF THE CHEST 01/08/2022 6:08 am COMPARISON: Chest x-ray 12/08/2021 HISTORY: ORDERING SYSTEM PROVIDED HISTORY: Reason for Exam: decreased breath sounds FINDINGS: Unchanged left subclavian central venous line. Interval removal of the left chest tube. Stable cardiomediastinal silhouette. Small residual left pleural effusion with adjacent left basilar airspace disease/atelectasis. The right lung is clear. No pneumothorax osseous structures appear intact. IMPRESSION: Residual small left pleural effusion and left basilar atelectasis/airspace disease status post left chest tube removal. I have personally reviewed the images of this examination and agree with the resident's findings and interpretation. Interpreted by: Maya Sarabia MD Preliminary Report By: Essence You Electronically signed By Maya Sarabia MD Dictated Date: 01/08/2022 6:12:17 AM Prelim Date: 01/08/2022 6:14:20 AM Sign Date: 01/08/2022 7:49:49 AM Ordering Provider: YIMI NEWELL [id number] Note ORIGINAL EXAMINATION: ONE XRAY VIEW OF THE CHEST 01/08/2022 6:08 am COMPARISON: Chest x-ray 12/08/2021 HISTORY: ORDERING SYSTEM PROVIDED HISTORY: Reason for Exam: decreased breath sounds FINDINGS: Unchanged left subclavian central venous line. Interval removal of the left chest tube. Stable cardiomediastinal silhouette. Small residual left pleural effusion with adjacent left basilar airspace disease/atelectasis. The right lung is clear. No pneumothorax osseous structures appear intact. IMPRESSION: Residual small left pleural effusion and left basilar atelectasis/airspace disease status post left chest tube removal. I have personally reviewed the images of this examination and agree with the resident's findings and interpretation. Interpreted by: Maya Sarabia MD Preliminary Report By: Essence You Electronically signed By Maya Sarabia MD Dictated Date: 01/08/2022 6:12:17 AM Prelim Date: 01/08/2022 6:14:20 AM Sign Date: 01/08/2022 7:49:49 AM Ordering Provider: [facility]07-22-2022 Nephrology Progress note Date of Service 01/07/2022 Chief Complaint No new complaints. Subjective Patient is sitting in chair. Denies any shortness of breath. Complains of chest soreness at surgical site. Chest tubes have been removed. Denies any dysuria or difficulty urinating. Urine output not accurately recorded, more than 650 mL over 24 hours. Objective Vitals and Measurements T: 36.5 C (Oral) TMIN: 36.5 C (Oral) TMAX: 36.7 C (Oral) HR: 65(Monitored) RR: 18 BP: 150/58 SpO2: 94% WT: 105.7 kg Physical Exam HEENT: PERRLA Respiratory: Bilateral air entry is present, decreased at bases Cardiovascular: S1-S2 present, chest tube present Abdomen: Obese, soft, NT, BS present Extremities: Bilateral BKA noted Lab Results 01/07 09:30 Protime: 12.4 PT International Ratio: 1.0 01/07 05:08 WBC: 13.5 H Hgb: 9.2 L Hct: 28.0 L Platelet: 186 Neutrophil %: 86.3 H Glucose Level: 124 H Sodium Level: 138 Potassium Level: 3.9 BUN: 34.0 H Creatinine Lvl (s): 1.77 H CO2: 25 Calcium: 8.8 Magnesium: 2.2 01/06 19:08 Potassium Level: 4.4 01/06 04:00 WBC: 18.2 H Hgb: 8.7 L Hct: 26.4 L Platelet: 210 Neutrophil %: 84.9 H Protime: 12.4 PT International Ratio: 1.0 Glucose Level: 122 H Sodium Level: 141 Potassium Level: 4.0 BUN: 29.0 H Creatinine Lvl (s): 1.90 H Assessment/Plan Non-oliguric QUIN on stage III CKD: Slight improvement in creatinine, monitor. 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 Patient's renal function is at baseline. If there is a plan to discharge the patient in next 1 to 2 days, okay from renal standpoint. 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 Montgomery in [place] on discharge. Discussed with patient. Digitally Signed by TAMIKA RODAS MD on 01/07/2022 12:42 PM [id number] Note ORIGINAL EXAMINATION: TWO XRAY VIEWS OF THE CHEST01/07/2022 7:08 am COMPARISON: Chest radiograph dated 01/06/2022 HISTORY: ORDERING SYSTEM PROVIDED HISTORY: Reason for Exam: Pleural effusions, former smoker, open-heart surgery 2 days ago FINDINGS: Cardiomediastinal contours stable. Left-sided chest tube and subclavian vein central venous catheter appear not significantly changed from prior. Postsurgical changes noted. Streaky interstitial and patchy alveolar haziness bilaterally, left worse than right. Left pleural effusion not excluded. Question trace right effusion. No pneumothorax. No acute osseous abnormalities. IMPRESSION: Interstitial/alveolar changes consistent with pulmonary edema or less likely developing infection. No significant interval change. I have personally reviewed the images of this examination and agree with the resident's findings and interpretations. Interpreted by: Sj Mantilla DO Preliminary Report By: Jose Roberto Grimaldo Electronically signed By Sj Mantilla DO Dictated Date: 01/07/2022 8:00:09 AM Prelim Date: 01/07/2022 12:23:59 PM Sign Date: 01/07/2022 12:23:59 PM Ordering Provider: BARRERA SALES [id number] Endocrinology Progress note Date of Service 01/07/22 Chief Complaint DM2 Subjective Chart reviewed. Overnight events and plan of care d/w patient. Patient denies new complaints. Appetite is good. Has completed course of IV stress dose steroids per the primary team. Stable glucose trends overnight, no reintroduction of the insulin drip Objective Vitals and Measurements T: 36.7 C (Oral) TMIN: 36.5 C (Oral) TMAX: 36.7 C (Oral) HR: 57(Monitored) RR: 18 BP: 150/70 SpO2: 94% WT: 105.7 kg Intake and Output 7AM Yesterday to 7AM Today Intake and Output (Last 24 hours) Intake Oral Intake 716.00 Administration Information 25.75 Output Chest Tube Output: 170.00 Urine Voided 500.00 Urinary Catheter Output: 50.00 Stool Count 0.00 Emesis Count 0.00 Total Summary Total Intake 741.75 Total Output 720.00 Fluid Balance 21.75 Physical Exam Alert, up in recliner, no acute distress Respirations even and unlabored Answers questions appropriately. Mood and affect normal. Weight Current Weight Dosing Weight: 81.5 kg (01/03/22) Current Weight: 105.7 kg (01/07/22) Dosing Weight: 81.5 kg (01/03/22) Current Weight: 81.5 kg (01/03/22) Medications Medications (35) Active Scheduled: (19) amiodarone 200 mg tablet 400 mg 2 tab(s), Oral, BIDM amiodarone 200 mg tablet 200 mg 1 tab(s), Oral, qDayM aspirin 81 mg EC 81 mg 1 tab(s), Oral, qDayM atorvastatin 20 mg tablet 20 mg 1 tab(s), Oral, qDay citalopram 10 mg tablet 10 mg 1 tab(s), Oral, qAM docusate calcium 240 mg Capsule 240 mg 1 cap(s), Oral, BID hydrocortisone 100 mg VIAL 50 mg, IV Push, q8h insulin glargine 25 unit(s) 0.25 mL, Subcutaneous (INT), BID insulin lispro 100 units/mL Soln (3 mL) Give 2-18 units/dose, Subcutaneous, achs2 levothyroxine 50 mcg tablet 50 mcg 1 tab(s), Oral, qDayAC lisinopril 5 mg tablet 5 mg 1 tab(s), Oral, BID Misc communication order 1 EA, Miscellaneous, Daily multivitamin (Chromagen Forte) with iron Vitamin B Complex with C, Folic Acid and Iron tablet 1 tab(s), Oral, qDay mupirocin 2% Ointment 22 Gram(s) tube 1 femi, Nostril, each, BID pantoprazole 40 mg EC tablet 40 mg 1 tab(s), Oral, qDayAC predniSONE 10 mg tablet 10 mg 1 tab(s), Oral, qDay sodium biphosphate-sodium phosphate 19 gm-7 gm Enema 133 mL, Rectal, Once vitamin A 10,000 units capsule 10,000 unit(s) 1 cap(s), Oral, qDay warfarin 5 mg tablet 5 mg 1 tab(s), Oral, qDay Continuous: (0) PRN: (16) acetaminophen 325 mg Tablet 650 mg 2 tab(s), Oral, q4h Al hydrox/Mg hydrox/simethicone 200-200-20 mg/5 mL Susp UD 30 mL, Oral, q2h bisacodyl 10 mg Suppository 10 mg 1 supp, Rectal, qDay bismuth subsalicylate 262 mg/15 mL 240 mL 30 mL, Oral, AsDirected dextrose 50% Solution Disp syringe 50 mL 25 g 50 mL, IV Push, AsDirected dextrose 50% Solution Disp syringe 50 mL 12.5 g 25 mL, IV Push, AsDirected glucagon recombinant 1 mg 1 mg 1 mL, Intramuscular, AsDirected insulin regular human recombinant 100 units/mL (3 mL) Soln 10 unit(s) 0.1 mL, IV Push, q1h ondansetron 2 mg/ 1 mL 2 mL INJ 4 mg 2 mL, IV Push, q4h phenol topical 1.4% Spr 1 spray(s), Topical, q1h polyethylene glycol 3350 - UD packet 17 gram(s) 15 mL, Oral, qDay potassium chloride (PMX) 20 mEq 50 mL, IV Piggyback, AsDirected potassium chloride (PMX) 15 mEq 50 mL, IV Piggyback, AsDirected potassium chloride (PMX) 10 mEq 50 mL, IV Piggyback, AsDirected tramadol 50 mg Tablet 25 mg 0.5 tab(s), Oral, q4h tramadol 50 mg Tablet 50 mg 1 tab(s), Oral, q6h Lab Results 01/07 09:30 Protime: 12.4 PT International Ratio: 1.0 01/07 05:08 WBC: 13.5 H Hgb: 9.2 L Hct: 28.0 L Platelet: 186 Neutrophil %: 86.3 H Glucose Level: 124 H Sodium Level: 138 Potassium Level: 3.9 BUN: 34.0 H Creatinine Lvl (s): 1.77 H 01/06 19:08 Potassium Level: 4.4 01/06 04:00 WBC: 18.2 H Hgb: 8.7 L Hct: 26.4 L Platelet: 210 Neutrophil %: 84.9 H Protime: 12.4 PT International Ratio: 1.0 Glucose Level: 122 H Sodium Level: 141 Potassium Level: 4.0 BUN: 29.0 H Creatinine Lvl (s): 1.90 H Group Detail Date Value w/Units Flags Normal Range Normal Reference Text Comment Ind Glucose Testing Blood Glucose, Capillary 01/07/2022 07:19:00 EDT 136 mg/dL HI 82-115 Glucose Testing Glucose Level 01/07/2022 05:08:00 EDT 124 mg/dL HI 82-115 Glucose Testing Blood Glucose, Capillary 01/07/2022 00:53:00 EDT 155 mg/dL HI 82-115 Glucose Testing Blood Glucose, Capillary 01/06/2022 21:00:00 EDT 124 mg/dL HI 82-115 Glucose Testing Blood Glucose, Capillary 01/06/2022 16:24:00 EDT 105 mg/dL 82-115 Glucose Testing Blood Glucose, Capillary 01/06/2022 15:27:00 EDT 96 mg/dL 82-115 Glucose Testing Blood Glucose, Capillary 01/06/2022 14:18:00 EDT 109 mg/dL 82-115 Glucose Testing Blood Glucose, Capillary 01/06/2022 13:14:00 EDT 99 mg/dL 82-115 Glucose Testing Blood Glucose, Capillary 01/06/2022 12:00:00 EDT 127 mg/dL HI 82-115 Glucose Testing Blood Glucose, Capillary 01/06/2022 11:02:00 EDT 116 mg/dL HI 82-115 EKG EKG - Discontinued -- 01/01/22 21:11:00 EDT Electrocardiogram (EKG) - InProcess -- 01/06/22 19:08:00 EDT Assessment/Plan 1. CAD (coronary artery disease) EF 45-50% S/P CABG 1 01/05/2022 2. NSTEMI (non-ST elevated myocardial infarction) 3. Acute blood loss anemia 4. QUIN (acute kidney injury) 5. CKD (chronic kidney disease), stage III 6. AF (paroxysmal atrial fibrillation) 7. Diabetes Hgb A1c 8.4% 8. HTN (hypertension) 9. HLD (hyperlipidemia) 10. Hypothyroid 11. 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 PVD (peripheral vascular disease) s/p bilateral BKA 2019 13. 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 Leukocytosis Orders: glucagon, Start: 01/06/22 16:01:00 EDT, Dose = 1 mg, = 1 mL, Intramuscular, AsDirected, PRN, Hypoglycemia, 01/06/22 16:01:00 EDT glucose, Start: 01/06/22 16:01:00 EDT, Dose = 12.5 g, = 25 mL, IV Push, AsDirected, PRN, Low blood sugar, 01/06/22 16:01:00 EDT insulin glargine, Start: 01/06/22 21:00:00 EDT, Dose = 25 unit(s), = 0.25 mL, Subcutaneous (INT), BID, Rate: 0 mL/hr, Infuse over: 0 minute(s), 0, 01/06/22 16:01:00 EDT insulin lispro (HumaLOG), Start: 01/06/22 17:00:00 EDT, Give 2-18 units/dose, Subcutaneous, achs2, 01/06/22 16:01:00 EDT Blood Glucose Monitoring POC This is a 81-year-old male with past medical history of atrial fibrillation (previously on Eliquis and amiodarone-discontinued 09/01/2021), diabetes type 2, hypothyroidism, mood disorder, peripheral vascular disease status post bilateral below the knee amputations in 2019, hyperlipidemia, hypertension, chronic kidney disease stage III, Singh's palsy, and giant cell arteritis status post temporal artery biopsy by Dr. Weinstein on 12/24/2021-on prednisone. [facility] due to a sudden onset of alteredmental status and shortness of breath. At [facility], he was noted to have acute kidney injury with creatinine 2.3 and elevated troponin at 3577. EKG revealed normal sinus rhythm without evidenceof ST elevation or depression. Negative for COVID-19 at [facility]. He was transferred to [facility] for further evaluation. Echocardiogram on December 30, 2021 revealed an EF of 45 to 50% and mild MR. 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 Cardiothoracic surgery was consulted for possible surgical myocardial vascularization. 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 Endocrine consult placed by [facility] for diabetic management. Longstanding type II diabetic with A1c of 8.4%. Currently residing at [facility] with orders in place for Humalog 32 units with lunch and supper, Toujeo 70 units nightly, sliding scale 3 to 12 units with meals and at bedtime. History of hyperlipidemia noted. Total cholesterol 129, triglycerides 152, HDL 24, LDL is 75. Continue on Lipitor 40 mg daily inpatient. History of hypothyroidism on levothyroxine 50 mcg daily. Continue on the same. TSH within range 3.091. Last 24 Hours: On chronic prednisone 10 mg daily for giant cell arteritis. Primary service opted to stress dose w/IV HC 100 q8. This course has now been completed. Home oral regimen of prednisone 10 mg daily has been restarted. Afternoon review shows they plan to give IV HC 50 q8 x 3 doses as well. Blood glucose trends reviewed. Fasting this morning 136. Stable. Transition off drip with orders for Lantus 25 units twice daily with a 2-18 sliding scale achs2. Renal function noted, GFR 37. Improving. He does have history of CKD. D/w patient risk for labile BG related to altered renal function. Encouraged protein-based snack at bedtime. Cut back Lantus as able; hold tapering today d/c primary team restarting IV HC. Add low-dose metformin at 500 mg twice daily. Consider SGLT2 introduction tomorrow based upon renal function, clinical status Will continue to follow while inpatient. Time Spent Total time spent 25 minutes Digitally Signed by CASPER MURRY on 01/07/2022 03:31 PM Digitally Signed by CASPER MURRY on 01/07/2022 03:34 PM Digitally Signed by CASPER MURRY on 01/07/2022 04:39 PM [id number] Note Date of Service 01/07/2022 Chief Complaint POD #2 This is an 81-year-old male with past medical history of atrial fibrillation and was previously on Eliquis and amiodarone which was discontinued in August 2021 by his PCP, diabetes, hypothyroidism, mood disorder, peripheral vascular disease status post bilateral below the knee amputations in 2019, hyperlipidemia, hypertension, chronic kidney disease stage III with an QUIN this admission, Singh's palsy, and giant cell arteritis on prednisone who presented on 12/30/2021 to an outside hospital with sudden onset of altered mental status and shortness of breath. He resides at [facility]. He denied having any chest pain or syncope. He was found to have an acute kidney injury at that time with creati nine of 2.3 and a troponin of 3577 at [facility]. He was transferred to [facility] for further evaluation where an echocardiogram revealed an EF of 45 to 50% and mild MR. This was followed upwith a heart catheterization which demonstrated multivessel disease. He was evaluated by Dr. Hernandez, preoperative work-up was obtained. On 01/05/2022 he had a CABG x1 with a MOLINA to the LAD. He was transferred to the CV SICU in stable condition, on the vent, and on Levophed drip briefly which was eventually weaned. He was extubated on operative night and tolerating nasal cannula without difficulty. POD #1 he is up in the chair, on epinephrine drip at 2 mcg/min, a paced at 80 with sinus rhythm in the 60s under the pacer. We will plan to wean epinephrine drip for systolic blood pressure greater than 100. If heart rate drops less than 60 consistently may a paced the patient again. Transfer to stepdown unit POD #2: Discontinue chest tubes, hydrocortisone 50 mg every 8 hours x1 day, resume home prednisone tomorrow. Start lisinopril 5 mg twice daily. Start Coumadin 5 mg today. Developed atrial fibrillation overnight and started on amiodarone protocol. may atrial pace if heart rate less than 50. Subjective Patient resting comfortably in bed. Reports midsternal incisional discomfort and pain with deep inspiration. Objective Vitals and Measurements T: 36.7 C (Oral) TMIN: 36.5 C (Oral) TMAX: 36.7 C (Oral) HR: 80(Monitored) RR: 18 BP: 150/70 SpO2: 94% WT: 105.7 kg Intake and Output 7AM Yesterday to 7AM Today Intake and Output (Last 24 hours) Intake Oral Intake 716.00 Administration Information 25.75 Output Chest Tube Output: 170.00 Urine Voided 300.00 Urinary Catheter Output: 50.00 Stool Count 0.00 Emesis Count 0.00 Total Summary Total Intake 741.75 Total Output 520.00 Fluid Balance 221.75 Physical Exam Constitutional: Alert, oriented, appropriate HEENT: Normocephalic, atraumatic Lungs: Unlabored respirations, lung sounds diminished bilaterally, SPO2 94 to 95% on 2 L nasal cannula Heart: Normal sinus rhythm/sinus bradycardia, S1-S2, no murmur, positive pericardial friction rub, heart rate ranging 56-94 Abdomen: Soft, nontender, bowel sounds present, positive flatus, no bowel movement Extremities: Bilateral below the knee amputations, skin warm and dry, femoral pulses +2, palpable popliteal pulses, no edema Integumentary: Midline sternal incision open to air, edges well approximated, no drainage Central venous access: Left subclavian triple-lumen Disposition: [facility] Weight Current Weight Dosing Weight: 81.5 kg (01/03/22) Current Weight: 105.7 kg (01/07/22) Dosing Weight: 81.5 kg (01/03/22) Current Weight: 81.5 kg (01/03/22) Medications Medications (36) Active Scheduled: (20) amiodarone 200 mg tablet 400 mg 2 tab(s), Oral, BIDM amiodarone 200 mg tablet 200 mg 1 tab(s), Oral, qDayM aspirin 81 mg EC 81 mg 1 tab(s), Oral, qDayM atorvastatin 20 mg tablet 20 mg 1 tab(s), Oral, qDay citalopram 10 mg tablet 10 mg 1 tab(s), Oral, qAM docusate calcium 240 mg Capsule 240 mg 1 cap(s), Oral, BID enoxaparin 40 mg/ 0.4mL syringe 40 mg 0.4 mL, Subcutaneous, qDay hydrocortisone 100 mg VIAL 50 mg, IV Push, q8h insulin glargine 25 unit(s) 0.25 mL, Subcutaneous (INT), BID insulin lispro 100 units/mL Soln (3 mL) Give 2-18 units/dose, Subcutaneous, achs2 levothyroxine 50 mcg tablet 50 mcg 1 tab(s), Oral, qDayAC lisinopril 5 mg tablet 5 mg 1 tab(s), Oral, BID Misc communication order 1 EA, Miscellaneous, Daily multivitamin (Chromagen Forte) with iron Vitamin B Complex with C, Folic Acid and Iron tablet 1 tab(s), Oral, qDay mupirocin 2% Ointment 22 Gram(s) tube 1 femi, Nostril, each, BID pantoprazole 40 mg EC tablet 40 mg 1 tab(s), Oral, qDayAC predniSONE 10 mg tablet 10 mg 1 tab(s), Oral, qDay sodium biphosphate-sodium phosphate 19 gm-7 gm Enema 133 mL, Rectal, Once vitamin A 10,000 units capsule 10,000 unit(s) 1 cap(s), Oral, qDay warfarin 5 mg tablet 5 mg 1 tab(s), Oral, qDay Continuous: (0) PRN: (16) acetaminophen 325 mg Tablet 650 mg 2 tab(s), Oral, q4h Al hydrox/Mg hydrox/simethicone 200-200-20 mg/5 mL Susp UD 30 mL, Oral, q2h bisacodyl 10 mg Suppository 10 mg 1 supp, Rectal, qDay bismuth subsalicylate 262 mg/15 mL 240 mL 30 mL, Oral, AsDirected dextrose 50% Solution Disp syringe 50 mL 25 g 50 mL, IV Push, AsDirected dextrose 50% Solution Disp syringe 50 mL 12.5 g 25 mL, IV Push, AsDirected glucagon recombinant 1 mg 1 mg 1 mL, Intramuscular, AsDirected insulin regular human recombinant 100 units/mL (3 mL) Soln 10 unit(s) 0.1 mL, IV Push, q1h ondansetron 2 mg/ 1 mL 2 mL INJ 4 mg 2 mL, IV Push, q4h phenol topical 1.4% Spr 1 spray(s), Topical, q1h polyethylene glycol 3350 - UD packet 17 gram(s) 15 mL, Oral, qDay potassium chloride (PMX) 20 mEq 50 mL, IV Piggyback, AsDirected potassium chloride (PMX) 15 mEq 50 mL, IV Piggyback, AsDirected potassium chloride (PMX) 10 mEq 50 mL, IV Piggyback, AsDirected tramadol 50 mg Tablet 25 mg 0.5 tab(s), Oral, q4h tramadol 50 mg Tablet 50 mg 1 tab(s), Oral, q6h Lab Results 01/07 05:08 WBC: 13.5 H Hgb: 9.2 L Hct: 28.0 L Platelet: 186 Neutrophil %: 86.3 H Glucose Level: 124 H Sodium Level: 138 Potassium Level: 3.9 BUN: 34.0 H Creatinine Lvl (s): 1.77 H 01/06 19:08 Potassium Level: 4.4 01/06 04:00 WBC: 18.2 H Hgb: 8.7 L Hct: 26.4 L Platelet: 210 Neutrophil %: 84.9 H Protime: 12.4 PT International Ratio: 1.0 Glucose Level: 122 H Sodium Level: 141 Potassium Level: 4.0 BUN: 29.0 H Creatinine Lvl (s): 1.90 H EKG Electrocardiogram (EKG) - InProcess -- 01/06/22 19:08:00 EDT Assessment/Plan 1. CAD (coronary artery disease) EF 45-50% S/P CABG 1 01/05/2022 Normal sinus rhythm/sinus bradycardia. Heart rate ranging 56-94. On aspirin and atorvastatin. No beta-blockers at this time due to heart rate. Discontinue chest tubes. 2. NSTEMI (non-ST elevated myocardial infarction) No Plavix at discharge secondary to being started on Coumadin 3. Acute blood loss anemia H&H 9.2 and 28. No signs of active bleeding 4. QUIN (acute kidney injury) Followed by nephrology. BUN and creatinine 34 and 1.77. Urine output over last 24 hours 450 cc. 5. CKD (chronic kidney disease), stage III 6. AF (paroxysmal atrial fibrillation) Currently in normal sinus rhythm/sinus bradycardia with heart rate ranging 56- 94. Patient did develop atrial fibrillation overnight and was started on amiodarone protocol. Patient was previously on Eliquis and amiodarone prior to admission but these medications were discontinued in August 2021. We will start Coumadin 5 mg today. Continue p.o. amiodarone per protocol however do not give IV amiodarone. 7. Diabetes Hgb A1c 8.4% Followed by [facility] inpatient endocrinology. Glucoses ranging 96-1 55. On Humalog sliding scale insulin and Lantus 8. HTN (hypertension) Blood pressures ranging 97/64-150/70. Start lisinopril 5 mg twice daily. 9. HLD (hyperlipidemia) On atorvastatin 10. Hypothyroid On levothyroxine 11. 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 prednisone tomorrow 12. PVD (peripheral vascular disease) s/p bilateral BKA 2019 Patient does have prosthesis however has not been ambulating with them as they cause discomfort. PT/OT consult pending. 13. 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 Leukocytosis Improving, WBC 13.5. Plan: Discontinue chest tubes Dulcolax suppository and Fleet enema for bowel movement Hydrocortisone 50 mg every 8 hours x1 day; start p.o. prednisone tomorrow Start lisinopril 5 mg twice daily Start Coumadin 5 mg Atrial paced if heart rate less than 50 No IV amiodarone, oral amiodarone only PT/OT evaluation pending CBC, BMP, PT/INR, and chest x-ray in a.m. Patient seen and discussed with Dr. Mathias. Digitally Signed by YIMI NEWELL on 01/07/2022 10:01 AM [id number] Anesthesiology Consult note Patient: ELIZABETH MODI Age: 81 years Sex: Male : 1940 Associated Diagnoses: None Author: LINN RICHARD DO Postoperative Information Post Operative Info: Post op day: Post Anesthesia Care Unit. Patient location: PACU. Assessment Postanesthesia assessment Vitals: Vital signs from flowsheet : Vital Signs 01/07/2022 7:19 EDT Temperature Oral 36.7 DegC Heart Rate Monitored 80 bpm Respiratory Rate 18 br/min Systolic Blood Pressure NBP 150 mmHg HI Diastolic Blood Pressure NBP 70 mmHg Mean Arterial Pressure (NBP) 94 mmHg Reason For Taking VItal Signs Routine 01/07/2022 5:31 EDT Temperature Oral 36.5 DegC Heart Rate Monitored 80 bpm Respiratory Rate 18 br/min Systolic Blood Pressure NBP 146 mmHg HI Diastolic Blood Pressure NBP 76 mmHg Mean Arterial Pressure (NBP) 97 mmHg Reason For Taking VItal Signs Routine 01/07/2022 0:08 EDT Temperature Oral 36.6 DegC Heart Rate Monitored 80 bpm Respiratory Rate 18 br/min Systolic Blood Pressure NBP 138 mmHg Diastolic Blood Pressure NBP 79 mmHg Reason For Taking VItal Signs Routine 01/06/2022 21:11 EDT Heart Rate Monitored 80 bpm Systolic Blood Pressure NBP 138 mmHg Diastolic Blood Pressure NBP 67 mmHg Mean Arterial Pressure (NBP) 89 mmHg 01/06/2022 20:49 EDT Heart Rate Monitored 56 bpm LOW 01/06/2022 20:06 EDT Heart Rate Monitored 57 bpm LOW 01/06/2022 20:02 EDT Heart Rate Monitored 94 bpm Systolic Blood Pressure NBP 110 mmHg Diastolic Blood Pressure NBP 67 mmHg Mean Arterial Pressure (NBP) 75 mmHg 01/06/2022 19:45 EDT Heart Rate Monitored 98 bpm Systolic Blood Pressure NBP 97 mmHg Diastolic Blood Pressure NBP 64 mmHg Mean Arterial Pressure (NBP) 76 mmHg 01/06/2022 19:30 EDT Heart Rate Monitored 94 bpm Systolic Blood Pressure NBP 107 mmHg Diastolic Blood Pressure NBP 57 mmHg LOW Mean Arterial Pressure (NBP) 73 mmHg 01/06/2022 19:00 EDT Heart Rate Monitored 102 bpm HI Respiratory Rate 18 br/min Reason For Taking VItal Signs Routine 01/06/2022 17:37 EDT Heart Rate Monitored 61 bpm Systolic Blood Pressure NBP 132 mmHg Diastolic Blood Pressure NBP 70 mmHg Mean Arterial Pressure (NBP) 88 mmHg 01/06/2022 17:00 EDT Heart Rate Monitored 67 bpm Systolic Blood Pressure NBP 131 mmHg Diastolic Blood Pressure NBP 64 mmHg Mean Arterial Pressure (NBP) 83 mmHg 01/06/2022 16:00 EDT Heart Rate Monitored 61 bpm Systolic Blood Pressure NBP 121 mmHg Diastolic Blood Pressure NBP 63 mmHg Mean Arterial Pressure (NBP) 79 mmHg 01/06/2022 15:27 EDT Heart Rate Monitored 62 bpm Respiratory Rate 16 br/min Systolic Blood Pressure NBP 115 mmHg Diastolic Blood Pressure NBP 57 mmHg LOW Mean Arterial Pressure (NBP) 74 mmHg Reason For Taking VItal Signs Routine 01/06/2022 14:05 EDT Heart Rate Monitored 61 bpm 01/06/2022 14:00 EDT Heart Rate Monitored 62 bpm Systolic Blood Pressure NBP 113 mmHg Diastolic Blood Pressure NBP 56 mmHg LOW Mean Arterial Pressure (NBP) 74 mmHg 01/06/2022 13:05 EDT Heart Rate Monitored 64 bpm Systolic Blood Pressure NBP 106 mmHg Diastolic Blood Pressure NBP 58 mmHg LOW Mean Arterial Pressure (NBP) 72 mmHg 01/06/2022 12:10 EDT Heart Rate Monitored 65 bpm 01/06/2022 12:05 EDT Temperature Oral 36.7 DegC Heart Rate Monitored 67 bpm Respiratory Rate 16 br/min Systolic Blood Pressure NBP 101 mmHg Diastolic Blood Pressure NBP 54 mmHg LOW Mean Arterial Pressure (NBP) 68 mmHg Reason For Taking VItal Signs Routine 01/06/2022 9:26 EDT Heart Rate Monitored 63 bpm Respiratory Rate 16 br/min Systolic Blood Pressure NBP 105 mmHg Diastolic Blood Pressure NBP 61 mmHg Mean Arterial Pressure (NBP) 73 mmHg Systolic Blood Pressure Invasive 103 mmHg Diastolic Blood Pressure Invasive 45 mmHg Mean Arterial Pressure (Line) 64 mmHg Reason For Taking VItal Signs Routine 01/06/2022 8:38 EDT Heart Rate Monitored 70 bpm Systolic Blood Pressure NBP 113 mmHg Diastolic Blood Pressure NBP 61 mmHg Mean Arterial Pressure (NBP) 76 mmHg Systolic Blood Pressure Invasive 107 mmHg Diastolic Blood Pressure Invasive 50 mmHg Mean Arterial Pressure (Line) 69 mmHg Reason For Taking VItal Signs Routine 01/06/2022 7:40 EDT Heart Rate Monitored 65 bpm Systolic Blood Pressure Invasive 113 mmHg Diastolic Blood Pressure Invasive 45 mmHg Mean Arterial Pressure (Line) 66 mmHg Reason For Taking VItal Signs Routine 01/06/2022 7:32 EDT Temperature Oral 36.8 DegC Heart Rate Monitored 66 bpm Respiratory Rate 16 br/min Systolic Blood Pressure NBP 107 mmHg Diastolic Blood Pressure NBP 58 mmHg LOW Mean Arterial Pressure (NBP) 74 mmHg Systolic Blood Pressure Invasive 112 mmHg Diastolic Blood Pressure Invasive 46 mmHg Mean Arterial Pressure (Line) 67 mmHg Reason For Taking VItal Signs Routine 01/06/2022 7:27 EDT Heart Rate Monitored 65 bpm Systolic Blood Pressure NBP 111 mmHg Diastolic Blood Pressure NBP 58 mmHg LOW Mean Arterial Pressure (NBP) 75 mmHg Systolic Blood Pressure Invasive 114 mmHg Diastolic Blood Pressure Invasive 46 mmHg Mean Arterial Pressure (Line) 68 mmHg Reason For Taking VItal Signs Routine 01/06/2022 7:00 EDT Heart Rate Monitored 65 bpm Systolic Blood Pressure NBP 122 mmHg Diastolic Blood Pressure NBP 55 mmHg LOW Mean Arterial Pressure (NBP) 76 mmHg Systolic Blood Pressure Invasive 129 mmHg Diastolic Blood Pressure Invasive 49 mmHg Mean Arterial Pressure (Line) 73 mmHg Reason For Taking VItal Signs Routine 01/06/2022 6:21 EDT Heart Rate Monitored 80 bpm Systolic Blood Pressure NBP 139 mmHg Diastolic Blood Pressure NBP 58 mmHg LOW Mean Arterial Pressure (NBP) 83 mmHg Systolic Blood Pressure Invasive 139 mmHg Diastolic Blood Pressure Invasive 55 mmHg LOW Mean Arterial Pressure (Line) 83 mmHg Reason For Taking VItal Signs Routine 01/06/2022 6:00 EDT Heart Rate Monitored 80 bpm Systolic Blood Pressure NBP 118 mmHg Diastolic Blood Pressure NBP 68 mmHg Mean Arterial Pressure (NBP) 85 mmHg Systolic Blood Pressure Invasive 153 mmHg HI Diastolic Blood Pressure Invasive 64 mmHg Mean Arterial Pressure (Line) 95 mmHg Reason For Taking VItal Signs Routine 01/06/2022 5:35 EDT Heart Rate Monitored 80 bpm Respiratory Rate 16 br/min Systolic Blood Pressure Invasive 148 mmHg HI Diastolic Blood Pressure Invasive 58 mmHg LOW Mean Arterial Pressure (Line) 89 mmHg Reason For Taking VItal Signs Routine 01/06/2022 5:31 EDT Heart Rate Monitored 80 bpm Respiratory Rate 18 br/min Systolic Blood Pressure NBP 136 mmHg Diastolic Blood Pressure NBP 67 mmHg Mean Arterial Pressure (NBP) 88 mmHg Systolic Blood Pressure Invasive 148 mmHg HI Diastolic Blood Pressure Invasive 59 mmHg LOW Mean Arterial Pressure (Line) 89 mmHg Reason For Taking VItal Signs Routine 01/06/2022 4:59 EDT Heart Rate Monitored 80 bpm Systolic Blood Pressure Invasive 149 mmHg HI Diastolic Blood Pressure Invasive 58 mmHg LOW Mean Arterial Pressure (Line) 91 mmHg Reason For Taking VItal Signs Routine 01/06/2022 4:56 EDT Heart Rate Monitored 80 bpm Systolic Blood Pressure Invasive 149 mmHg HI Diastolic Blood Pressure Invasive 62 mmHg Mean Arterial Pressure (Line) 98 mmHg Reason For Taking VItal Signs Routine 01/06/2022 4:00 EDT Heart Rate Monitored 80 bpm Systolic Blood Pressure Invasive 145 mmHg HI Diastolic Blood Pressure Invasive 56 mmHg LOW Mean Arterial Pressure (Line) 88 mmHg Reason For Taking VItal Signs Routine 01/06/2022 3:30 EDT Temperature Oral 36.7 DegC Heart Rate Monitored 80 bpm Respiratory Rate 16 br/min Systolic Blood Pressure Invasive 144 mmHg HI Diastolic Blood Pressure Invasive 56 mmHg LOW Mean Arterial Pressure (Line) 87 mmHg Reason For Taking VItal Signs Routine 01/06/2022 3:00 EDT Heart Rate Monitored 80 bpm Systolic Blood Pressure Invasive 134 mmHg Diastolic Blood Pressure Invasive 54 mmHg LOW Mean Arterial Pressure (Line) 81 mmHg Reason For Taking VItal Signs Routine 01/06/2022 1:39 EDT Temperature Oral 36.8 DegC Heart Rate Monitored 80 bpm Respiratory Rate 14 br/min Systolic Blood Pressure Invasive 134 mmHg Diastolic Blood Pressure Invasive 53 mmHg LOW Mean Arterial Pressure (Line) 81 mmHg Reason For Taking VItal Signs Routine 01/06/2022 1:00 EDT Heart Rate Monitored 80 bpm Systolic Blood Pressure Invasive 129 mmHg Diastolic Blood Pressure Invasive 51 mmHg LOW Mean Arterial Pressure (Line) 77 mmHg 01/06/2022 0:30 EDT Heart Rate Monitored 80 bpm Systolic Blood Pressure Invasive 128 mmHg Diastolic Blood Pressure Invasive 50 mmHg Mean Arterial Pressure (Line) 76 mmHg 01/06/2022 0:00 EDT Heart Rate Monitored 80 bpm Systolic Blood Pressure Invasive 138 mmHg Diastolic Blood Pressure Invasive 54 mmHg LOW Mean Arterial Pressure (Line) 83 mmHg . Mental status: at preoperative baseline. Respiratory function: respirations are non-labored, Stable. Respiratory support: oxygen 94% 2l. CV function: Stable. Cardiovascular support: none. Pain: Satisfactory. Nausea status: Satisfactory. Postoperative hydration status: within normal limits. Notes: Patient is sufficiently recovered from anesthesia to participate in the evaluation. No follow-up care needed. No complications post-anesthesia.. Digitally Signed by LINN RICHARD DO on 01/07/2022 08:18 AM [id number] Note ORIGINAL EXAMINATION: TWO XRAY VIEWS OF THE CHEST01/07/2022 7:08 am COMPARISON: Chest radiograph dated 01/06/2022 HISTORY: ORDERING SYSTEM PROVIDED HISTORY: Reason for Exam: Pleural effusions, former smoker, open-heart surgery 2 days ago FINDINGS: Cardiomediastinal contours stable. Left-sided chest tube and subclavian vein central venous catheter appear not significantly changed from prior. Postsurgical changes noted. Streaky interstitial and patchy alveolar haziness bilaterally, left worse than right. Left pleural effusion not excluded. Question trace right effusion. No pneumothorax. No acute osseous abnormalities. IMPRESSION: Interstitial/alveolar changes consistent with pulmonary edema or less likely developing infection. No significant interval change. I have personally reviewed the images of this examination and agree with the resident's findings and interpretations. Interpreted by: Sj Mantilla DO Preliminary Report By: Jose Roberto Grimaldo Electronically signed By Sj Mantilla DO Dictated Date: 01/07/2022 8:00:09 AM Prelim Date: 01/07/2022 12:23:59 PM Sign Date: 01/07/2022 12:23:59 PM Ordering Provider: [facility]07-21-2022 Nephrology Progress note Date of Service 01/06/2022 Chief Complaint Chest soreness. Subjective Patient is sitting in chair. Extubated. Not on any pressors. Diamond catheter was removed around 30 minutes ago. Urine output of 980 mL over 24 hours. Complains of chest soreness. Denies any shortness of breath. Currently on 2 L O2 via NC. Objective Vitals and Measurements T: 36.8 C (Oral) TMIN: 35.42 C TMAX: 37.79 C HR: 63(Monitored) RR: 16 BP: 105/61 BP: 103/45(Line) SpO2: 94% Physical Exam HEENT: PERRLA Respiratory: Bilateral air entry is present, decreased at bases Cardiovascular: S1-S2 present, chest tube present Abdomen: Obese, soft, NT, BS present Extremities: Bilateral BKA noted Lab Results 01/06 04:00 WBC: 18.2 H Hgb: 8.7 L Hct: 26.4 L Platelet: 210 Neutrophil %: 84.9 H Protime: 12.4 PT International Ratio: 1.0 Glucose Level: 122 H Sodium Level: 141 Potassium Level: 4.0 BUN: 29.0 H Creatinine Lvl (s): 1.90 H CO2: 24 Calcium: 8.4 Magnesium: 2.4 01/05 18:47 Potassium Level: 4.1 01/05 15:57 Potassium Level: 3.8 01/05 12:54 WBC: 24.6 H Hgb: 10.9 L Hct: 34.3 L Platelet: 283 Glucose Level: 147 H Sodium Level: 141 Potassium Level: 3.7 BUN: 29.0 H Creatinine Lvl (s): 1.66 H 01/05 04:26 WBC: 11.3 H Hgb: 12.7 L Hct: 38.6 L Platelet: 301 Glucose Level: 117 H Sodium Level: 142 Potassium Level: 4.4 BUN: 36.0 H Creatinine Lvl (s): 1.75 H Assessment/Plan Non-oliguric QUIN on stage III CKD: Slight worsening of creatinine, monitor. 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 Monitor urine output without Diamond catheter. Avoid NSAIDs and IV contrast. Labs in AM. Discussed with patient and nursing staff. Will follow. Digitally Signed by TAMIKA RODAS MD on 01/06/2022 10:19 AM [id number] Endocrinology Progress note Date of Service 01/06/22 Chief Complaint DM2 Management Subjective Chart reviewed. Overnight events and plan of care d/w patient. S/p CABG 01/05/22. On insulin gtt protocol. Weaned off epinephrine this AM. Fair po intake on ADA clear diet this AM. Primary team has initiated high, stress dose steroids. Objective Vitals and Measurements T: 36.8 C (Oral) TMIN: 35.35 C (Bladder) TMAX: 37.79 C HR: 65(Monitored) RR: 16 BP: 107/58 BP: 113/45(Line) SpO2: 94% Intake and Output 7AM Yesterday to 7AM Today Intake and Output (Last 24 hours) Intake Autotransfusion Amt 350.00 CPB (Anes) 1050.00 Administration Information 2286.81 Output Chest Tube Output: 460.00 Urinary Catheter Output: 980.00 Intra-Op EBL 400.00 Intra-Op Urine Catheter 350.00 Stool Count 0.00 Emesis Count 0.00 Total Summary Total Intake 3686.81 Total Output 2190.00 Fluid Balance 1496.81 Physical Exam Alert, up in recliner, no acute distress Respirations even and unlabored Answers questions appropriately. Mood and affect normal. CT and Diamond noted. Weight Current Weight Dosing Weight: 81.5 kg (01/03/22) Current Weight: 81.5 kg (01/03/22) Dosing Weight: 81.5 kg (01/03/22) Medications Medications (29) Active Scheduled: (13) aspirin 81 mg EC 81 mg 1 tab(s), Oral, qDayM atorvastatin 20 mg tablet 20 mg 1 tab(s), Oral, qDay ceFAZolin syringe 2 gram(s) 20 mL, IV Push (INT), q8hr citalopram 10 mg tablet 10 mg 1 tab(s), Oral, qAM docusate calcium 240 mg Capsule 240 mg 1 cap(s), Oral, BID enoxaparin 40 mg/ 0.4mL syringe 40 mg 0.4 mL, Subcutaneous, qDay hydrocortisone 100 mg VIAL 100 mg, IV Push, q8hr levothyroxine 50 mcg tablet 50 mcg 1 tab(s), Oral, qDayAC multivitamin (Chromagen Forte) with iron Vitamin B Complex with C, Folic Acid and Iron tablet 1 tab(s), Oral, qDay mupirocin 2% Ointment 22 Gram(s) tube 1 femi, Nostril, each, BID pantoprazole 40 mg EC tablet 40 mg 1 tab(s), Oral, qDayAC predniSONE 10 mg tablet 10 mg 1 tab(s), Oral, qDayM vitamin A 10,000 units capsule 10,000 unit(s) 1 cap(s), Oral, qDay Continuous: (2) epinephrine 4 mg [2 mcg/min] + Sodium Chloride 0.9% 250 mL 250 mL, Intravenous, 7.5 mL/hr insulin regular 100 unit(s) + NS Premix Diluent 100 mL 100 mL, Intravenous PRN: (14) acetaminophen 325 mg Tablet 650 mg 2 tab(s), Oral, q4h Al hydrox/Mg hydrox/simethicone 200-200-20 mg/5 mL Susp UD 30 mL, Oral, q2h bisacodyl 10 mg Suppository 10 mg 1 supp, Rectal, qDay bismuth subsalicylate 262 mg/15 mL 240 mL 30 mL, Oral, AsDirected dextrose 50% Solution Disp syringe 50 mL 25 g 50 mL, IV Push, AsDirected insulin regular human recombinant 100 units/mL (3 mL) Soln 10 unit(s) 0.1 mL, IV Push, q1h ondansetron 2 mg/ 1 mL 2 mL INJ 4 mg 2 mL, IV Push, q4h phenol topical 1.4% Spr 1 spray(s), Topical, q1h polyethylene glycol 3350 - UD packet 17 gram(s) 15 mL, Oral, qDay potassium chloride (PMX) 20 mEq 50 mL, IV Piggyback, AsDirected potassium chloride (PMX) 15 mEq 50 mL, IV Piggyback, AsDirected potassium chloride (PMX) 10 mEq 50 mL, IV Piggyback, AsDirected tramadol 50 mg Tablet 25 mg 0.5 tab(s), Oral, q4h tramadol 50 mg Tablet 50 mg 1 tab(s), Oral, q6h Lab Results 01/06 04:00 WBC: 18.2 H Hgb: 8.7 L Hct: 26.4 L Platelet: 210 Neutrophil %: 84.9 H Protime: 12.4 PT International Ratio: 1.0 Glucose Level: 122 H Sodium Level: 141 Potassium Level: 4.0 BUN: 29.0 H Creatinine Lvl (s): 1.90 H 01/05 18:47 Potassium Level: 4.1 01/05 15:57 Potassium Level: 3.8 01/05 12:54 WBC: 24.6 H Hgb: 10.9 L Hct: 34.3 L Platelet: 283 Glucose Level: 147 H Sodium Level: 141 Potassium Level: 3.7 BUN: 29.0 H Creatinine Lvl (s): 1.66 H 01/05 04:26 WBC: 11.3 H Hgb: 12.7 L Hct: 38.6 L Platelet: 301 Glucose Level: 117 H Sodium Level: 142 Potassium Level: 4.4 BUN: 36.0 H Creatinine Lvl (s): 1.75 H Group Detail Date Value w/Units Flags Normal Range Normal Reference Text Comment Ind Glucose Testing Blood Glucose, Capillary 01/06/2022 07:32:00 EDT 102 mg/dL 82-115 Glucose Testing Blood Glucose, Capillary 01/06/2022 06:21:00 EDT 145 mg/dL HI 82-115 Glucose Testing Blood Glucose, Capillary 01/06/2022 04:00:00 EDT 117 mg/dL HI 82-115 Glucose Testing Glucose Level 01/06/2022 04:00:00 EDT 122 mg/dL HI 82-115 Glucose Testing Blood Glucose, Capillary 01/06/2022 02:52:00 EDT 100 mg/dL 82-115 Glucose Testing Blood Glucose, Capillary 01/06/2022 01:39:00 EDT 102 mg/dL 82-115 Glucose Testing Blood Glucose, Capillary 01/06/2022 00:26:00 EDT 77 mg/dL LOW 82-115 Glucose Testing Blood Glucose, Capillary 01/05/2022 22:19:00 EDT 110 mg/dL 82-115 Glucose Testing Blood Glucose, Capillary 01/05/2022 21:06:00 EDT 111 mg/dL 82-115 Glucose Testing Blood Glucose, Capillary 01/05/2022 20:03:00 EDT 127 mg/dL HI 82-115 Glucose Testing Blood Glucose, Capillary 01/05/2022 18:43:00 EDT 160 mg/dL HI 82-115 Glucose Testing Blood Glucose, Capillary 01/05/2022 17:15:00 EDT 129 mg/dL HI 82-115 Glucose Testing Blood Glucose, Capillary 01/05/2022 16:00:00 EDT 107 mg/dL 82-115 Glucose Testing Blood Glucose, Capillary 01/05/2022 15:01:00 EDT 91 mg/dL 82-115 Glucose Testing Blood Glucose, Capillary 01/05/2022 14:01:00 EDT 104 mg/dL 82-115 Glucose Testing Glucose Level 01/05/2022 12:54:00 EDT 147 mg/dL HI 82-115 Glucose Testing Blood Glucose, Capillary 01/05/2022 12:46:00 EDT 140 mg/dL HI 82-115 EKG Electrocardiogram - InProcess -- 01/06/22 7:50:00 EDT, On the 4th post op day Assessment/Plan 1. CAD (coronary artery disease) EF 45-50% S/P CABG 1 01/05/2022 2. NSTEMI (non-ST elevated myocardial infarction) 3. Acute blood loss anemia 4. QUIN (acute kidney injury) 5. CKD (chronic kidney disease), stage III 6. AF (paroxysmal atrial fibrillation) 7. Diabetes Hgb A1c 8.4% 8. HTN (hypertension) 9. HLD (hyperlipidemia) 10. Hypothyroid 11. 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 PVD (peripheral vascular disease) s/p bilateral BKA 2019 13. 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 Leukocytosis Orders: ADA Clear Liquid Diet This is a 81-year-old male with past medical history of atrial fibrillation (previously on Eliquis and amiodarone-discontinued 09/01/2021), diabetes type 2, hypothyroidism, mood disorder, peripheral vascular disease status post bilateral below the knee amputations in 2019, hyperlipidemia, hypertension, chronic kidney disease stage III, Singh's palsy, and giant cell arteritis status post temporal artery biopsy by Dr. Weinstein on 12/24/2021-on prednisone. [facility] to [facility] on December 30, 2021 due to a sudden onset of alteredmental status and shortness of breath. At [facility], he was noted to have acute kidney injury with creatinine 2.3 and elevated troponin at 3577. EKG revealed normal sinus rhythm without evidenceof ST elevation or depression. Negative for COVID-19 at [facility]. He was transferred to [facility] for further evaluation. Echocardiogram on December 30, 2021 revealed an EF of 45 to 50% and mild MR. Cardiac catheterization completed showing multivessel disease.Cardiothoracic surgery has been consulted for possible surgical myocardial vascularization. Endocrine consult placed by CTS for diabetic management. Longstanding type II diabetic with A1c of 8.4%. Currently residing at [facility] with orders in place for Humalog 32 units with lunch and supper, Toujeo 70 units nightly, sliding scale 3 to 12 units with meals and at bedtime. History of CKD. GFR 34 today. QUIN initially on presentation to . Nephrology is following here this admission. D/w patient risk for labile BG related to altered renal function. Encouraged protein-based snack at bedtime. History of hyperlipidemia noted. Total cholesterol 129, triglycerides 152, HDL 24, LDL is 75. Continue on Lipitor 40 mg daily inpatient. History of hypothyroidism on levothyroxine 50 mcg daily. Continue on the same. TSH within range 3.091. Last 24 Hours: Prior to OR, orders were in place for Lantus 25 units qam , 2-18 sliding scale with meals and at bedtime and metformin 500 mg twice daily. Today initially was on epinephrine. This is since been weaned off. Continues on insulin drip. Labile trends with the same. On chronic prednisone 10 mg daily for giant cell arteritis. Primary service has opted to stress dose w/ IV HC 100 q8. Blood glucose trends reviewed. Will need to continue on insulin drip for now; re-eval this evening. HC 100 q8 orders are noted. Consider use of SGLT2 as his clinical course progresses. Plan for reintroduction of metformin. GLP analog should also be added in the outpatient setting. Reviewed with bedside RN. Evening Review: Glucose trend stable. After careful consideration of clinical status, oral intake, w/ thorough MAR review for vasopressor and steroid use as well as current insulin gtt patterns/needscalculations indicate need to transition off insulin drip with Lantus 20 x1, 25 units bid. 2-18 achs2 SSI. Closely watch glucose trends while on stress dose steroids. Will continue to follow while inpatient. Time Spent Total time spent 25 minutes Digitally Signed by CASPER MURRY on 01/06/2022 04:03 PM [id number] Note Date of Service 01/06/2022 Chief Complaint POD #1 This is an 81-year-old male with past medical history of atrial fibrillation and was previously on Eliquis and amiodarone which was discontinued in August 2021 by his PCP, diabetes, hypothyroidism, mood disorder, peripheral vascular disease status post bilateral below the knee amputations in 2019, hyperlipidemia, hypertension, chronic kidney disease stage III with an QUIN this admission, Singh's palsy, and giant cell arteritis on prednisone who presented on 12/30/2021 to an outside hospital with sudden onset of altered mental status and shortness of breath. He resides at [facility]. He denied having any chest pain or syncope. He was found to have an acute kidney injury at that time with creati nine of 2.3 and a troponin of 3577 at [facility]. He was transferred to [place] for further evaluation where an echocardiogram revealed an EF of 45 to 50% and mild MR. This was followed upwith a heart catheterization which demonstrated multivessel disease. He was evaluated by Dr. Hernandez, preoperative work-up was obtained. On 01/05/2022 he had a CABG x1 with a MOLINA to the LAD. He was transferred to the CV SICU in stable condition, on the vent, and on Levophed drip briefly which was eventually weaned. He was extubated on operative night and tolerating nasal cannula without difficulty. Postop day 1 he is up in the chair, on epinephrine drip at 2 mcg/min, a paced at 80 with sinus rhythm in the 60s under the pacer. We will plan to wean epinephrine drip for systolic blood pressure greater than 100. If heart rate drops less than 60 consistently may a paced the patient again. Subjective Up in chair, denies any shortness of breath this morning Objective Vitals and Measurements T: 36.7 C (Oral) TMIN: 35.35 C (Bladder) TMAX: 37.79 C HR: 66(Monitored) RR: 16 BP: 107/58 BP: 112/46(Line) SpO2: 93% Intake and Output 7AM Yesterday to 7AM Today Intake and Output (Last 24 hours) Intake Autotransfusion Amt 350.00 CPB (Anes) 1050.00 Administration Information 2286.81 Output Chest Tube Output: 405.00 Urinary Catheter Output: 880.00 Intra-Op EBL 400.00 Intra-Op Urine Catheter 350.00 Stool Count 0.00 Emesis Count 0.00 Total Summary Total Intake 3686.81 Total Output 2035.00 Fluid Balance 1651.81 Physical Exam Neuro alert and oriented x3, appropriate Lungs diminished in the bases bilaterally, respirations nonlabored at rest, O2 at 2 L nasal cannulawith an SaO2 of 92% Heart S1 and S2 currently a paced at 80, sinus bradycardia in the 60s under the pacer, AV wires intact. Positive pericardial rub Chest tubes Mediastinal's drained 320 cc since surgery/120 cc in 8 hours. Left anterior drain 85 ccsince surgery and 30 cc in 8 hours Abdomen is large soft nontender bowel sounds present hypoactive -Diamond catheter drained 880 cc since surgery/365 cc in 8 hours Extremities right popliteal pulse present with Doppler, left popliteal faint. Bilateral below the knee amputations, extremities are warm to the touch Skin midsternal chest incision with Aquacel dressing dry and intact Weight Current Weight Dosing Weight: 81.5 kg (01/03/22) Current Weight: 81.5 kg (01/03/22) Dosing Weight: 81.5 kg (01/03/22) Medications Medications (30) Active Scheduled: (8) aspirin 81 mg EC 81 mg 1 tab(s), Oral, qDayM ceFAZolin syringe 2 gram(s) 20 mL, IV Push (INT), q8hr hydrocortisone 100 mg VIAL 100 mg, IV Push, q8h levothyroxine 50 mcg tablet 50 mcg 1 tab(s), Oral, qDayAC mupirocin 2% Ointment 22 Gram(s) tube 1 femi, Nostril, each, q12h pantoprazole 40 mg VIAL 40 mg, IV Push, qDayAC predniSONE 10 mg tablet 10 mg 1 tab(s), Oral, qDayM vitamin A 10,000 units capsule 10,000 unit(s) 1 cap(s), Oral, qDay Continuous: (7) Dextrose 5% with 0.45% NACL 1,000 mL 1,000 mL, Intravenous, 20 mL/hr epinephrine 4 mg [2 mcg/min] + Sodium Chloride 0.9% 250 mL 250 mL, Intravenous, 7.5 mL/hr insulin regular 100 unit(s) + NS Premix Diluent 100 mL 100 mL, Intravenous nitroprusside 50 mg [0.2 mcg/kg/min] + NS Premix Diluent 100 mL 100 mL, Intravenous, 1.96 mL/hr norepinephrine 8 mg [2 mcg/min] + NS Premix Diluent 250 mL 250 mL, Intravenous, 3.75 mL/hr NS (0.9% nacl) 1,000 mL 1,000 mL, Intravenous, 20 mL/hr NS (0.9% nacl) 500 mL 500 mL, Intravenous, 20 mL/hr PRN: (15) acetaminophen 325 mg Tablet 650 mg 2 tab(s), Oral, q4h dextrose 50% Solution Disp syringe 50 mL 25 g 50 mL, IV Push, AsDirected insulin regular human recombinant 100 units/mL (3 mL) Soln 10 unit(s) 0.1 mL, IV Push, q1h magnesium sulfate 4g/50mL PMX 4 g 50 mL, IV Piggyback, AsDirected morphine 2 mg/mL 1 mL syringe 2 mg 1 mL, IV Push, q3h morphine 5 mg/mL 1 mL 5 mg 1 mL, IV Push, q3h nitroglycerin 100 mcg/1 mL 10 mL VIAL 100 mcg 1 mL, IV Push, AsDirected ondansetron 2 mg/ 1 mL 2 mL INJ 4 mg 2 mL, IV Push, q4h oxycodone 5 mg tablet (immediate release) 5 mg 1 tab(s), Oral, q4h oxycodone 5 mg tablet (immediate release) 10 mg 2 tab(s), Oral, q4h potassium chloride (PMX) 20 mEq 50 mL, IV Piggyback, AsDirected potassium chloride (PMX) 15 mEq 50 mL, IV Piggyback, AsDirected potassium chloride (PMX) 10 mEq 50 mL, IV Piggyback, AsDirected protamine 10 mg/mL (50 mg/5 mL) vial 50 mg 5 mL, IV Push, Once sodium phosphate 30 mmol 10 mL, IV Piggyback, AsDirected Lab Results 01/06 04:00 WBC: 18.2 H Hgb: 8.7 L Hct: 26.4 L Platelet: 210 Neutrophil %: 84.9 H Protime: 12.4 PT International Ratio: 1.0 Glucose Level: 122 H Sodium Level: 141 Potassium Level: 4.0 BUN: 29.0 H Creatinine Lvl (s): 1.90 H 01/05 18:47 Potassium Level: 4.1 01/05 15:57 Potassium Level: 3.8 01/05 12:54 WBC: 24.6 H Hgb: 10.9 L Hct: 34.3 L Platelet: 283 Glucose Level: 147 H Sodium Level: 141 Potassium Level: 3.7 BUN: 29.0 H Creatinine Lvl (s): 1.66 H 01/05 04:26 WBC: 11.3 H Hgb: 12.7 L Hct: 38.6 L Platelet: 301 Glucose Level: 117 H Sodium Level: 142 Potassium Level: 4.4 BUN: 36.0 H Creatinine Lvl (s): 1.75 H EKG No qualifying data available. Assessment/Plan 1. CAD (coronary artery disease) EF 45-50% S/P CABG 1 01/05/2022 Currently a paced at 80, sinus bradycardia in the 60s, aspirin Epinephrine drip is at 2 mcg/min 2. NSTEMI (non-ST elevated myocardial infarction) Plavix at discharge 3. Acute blood loss anemia H&H is 8.7 26.4 this morning, no signs of active bleeding 4. QUIN (acute kidney injury) BUN and creatinine this morning are 29 and 1.90, urine output 880 cc since surgery Patient had an acute kidney injury on admission with a BUN of 48 and 1.95, nephrology is following 5. CKD (chronic kidney disease), stage III 6. AF (paroxysmal atrial fibrillation) Currently sinus rhythm at 65, pacer currently off Patient was on Eliquis and amiodarone at home but this was discontinued in August of this year 7. Diabetes Hgb A1c 8.4% Glucose 100 1 45, on insulin drip per the [facility] ICU glycemic protocol at 8 units/h, endocrinology wasfollowing preoperatively and will continue to follow postoperatively 8. HTN (hypertension) Blood pressure 111/58 139/58 Wean epinephrine drip 9. HLD (hyperlipidemia) Restart atorvastatin 10. Hypothyroid Resume levothyroxine 11. 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 PVD (peripheral vascular disease) s/p bilateral BKA 2019 Patient does not wear any prosthetics states that they are uncomfortable Extremities are warm to the touch, popliteal pulses present with Doppler 13. 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 Leukocytosis WBCs are 18,000 this morning, he is afebrile, likely reactive, continue to monitor Orders: hydrocortisone, Start: 01/06/22 14:00:00 EDT, Dose = 100 mg, IV Push, q8h, 1 day(s), Stop: :00:00 EDT, 01/06/22 14:00:00 EDT levothyroxine, Start: 01/06/22 7:32:00 EDT, Dose = 50 mcg, = 1 tab(s), Oral, qDayAC, 01/06/22 7:32:00 EDT predniSONE, Start: 01/07/22 8:00:00 EDT, Dose = 10 mg, = 1 tab(s), Oral, qDayM, give with food, 01/07/22 8:00:00 EDT Basic Metabolic Panel Complete Blood Count XR Chest 2 Views (PA & Lateral) Plan: Hydrocortisone 100 mg IV every 8 hours today, resume prednisone p.o. tomorrow Wean epinephrine drip for systolic blood pressure greater than 100 May resume atrial pacing if heart rate consistently less than 60 bpm Labs and chest x-ray in the a.m. Patient seen and discussed with Dr. Mathias Digitally Signed by BARRERA SALES on 01/06/2022 07:42 AM [id number] Note ORIGINAL EXAMINATION: ONE XRAY VIEW OF THE CHEST 01/06/2022 5:53 am COMPARISON: None. HISTORY: ORDERING SYSTEM PROVIDED HISTORY: Reason for Exam: abnormal breath sounds FINDINGS: Chest tube overlies the left lateral mid lung. Left subclavian central venous catheter tube tip terminates in the SVC. Sternotomy wires are present in the chest wall. Suspected small left effusion. Interstitial and alveolar haziness bilaterally. Mild to moderate cardiomegaly. No definite pneumothorax is identified. IMPRESSION: Findings could represent a developing infiltrate versus congestion/edema. Interpreted by: Maya Sarabia MD Preliminary Report By: Maya Sarabia MD Electronically signed By Maya Sarabia MD Dictated Date: 01/06/2022 6:15:28 AM Prelim Date: 01/06/2022 6:18:00 AM Sign Date: 01/06/2022 6:18:00 AM Ordering Provider: [facility]07-21-2022 Note ORIGINAL EXAMINATION: ONE XRAY VIEW OF THE CHEST 01/06/2022 5:53 am COMPARISON: None. HISTORY: ORDERING SYSTEM PROVIDED HISTORY: Reason for Exam: abnormal breath sounds FINDINGS: Chest tube overlies the left lateral mid lung. Left subclavian central venous catheter tube tip terminates in the SVC. Sternotomy wires are present in the chest wall. Suspected small left effusion. Interstitial and alveolar haziness bilaterally. Mild to moderate cardiomegaly. No definite pneumothorax is identified. IMPRESSION: Findings could represent a developing infiltrate versus congestion/edema. Interpreted by: Maya Sarabia MD Preliminary Report By: Maya Sarabia MD Electronically signed By Maya Sarabia MD Dictated Date: 01/06/2022 6:15:28 AM Prelim Date: 01/06/2022 6:18:00 AM Sign Date: 01/06/2022 6:18:00 AM Ordering Provider: [facility]07-20-2022 Cardiology Progress note Date of Service 01/05/22 Chief Complaint Chest pain, NSTEMI Subjective Patient has gone for CABG. No acute overnight events. Cr continues to uptrend today 1.75, UO 350 with - balance of 285. Metformin held yesterday. Will monitor BMP post surgery and nephrology following patient. Objective Vitals and Measurements T: 36.47 C (Bladder) T: 36.02 C TMIN: 35.35 C (Bladder) TMAX: 36.7 C (Oral) HR: 52(Monitored) RR: 16 BP: 128/60 SpO2: 100% Intake and Output 7AM Yesterday to 7AM Today Intake and Output (Last 24 hours) Intake Administration Information 0.63 Output Urine Voided 100.00 Total Summary Total Intake 0.63 Total Output 100.00 Fluid Balance -99.37 Physical Exam GENERAL: Pt is comfortable in bed. PSYCH: Alert and oriented HEENT: Sclera clear, trachea midline NEURO: No focal neurologic deficits ENDO: Thyroid is non-palpable NECK: No JVD or Carotid Bruit CVS: S1 & S2 audible, Sinus bradycardia, No Murmurs LUNG: Adequate air entry. GI: + BS, Abdomen is Soft EXTREMITIES: Bilateral below the knee amputations, no edema, palpable bilateral popliteal pulses, bilateral femoral pulses +2 SKIN: Warm & Dry Weight Current Weight Dosing Weight: 81.5 kg (01/03/22) Current Weight: 81.5 kg (01/03/22) Dosing Weight: 81.5 kg (01/03/22) Medications Medications (33) Active Scheduled: (21) acetaminophen 1,000 mg, IV Piggyback, q6hr allopurinol 300 mg tablet 300 mg 1 tab(s), Oral, qDayPC amLODIPine 5 mg tablet 5 mg 1 tab(s), Oral, qDay aspirin 81 mg Chewable 81 mg 1 tab(s), Oral, Daily atorvastatin 40 mg tablet 40 mg 1 tab(s), Oral, qDay cardioplegic del Nido formula 1,052.8 mL, Miscellaneous, Once cefuroxime 1.5 gram(s), Topical, PREOP pharm citalopram 10 mg tablet 10 mg 1 tab(s), Oral, qAM heparin 10,000 unit(s) 1 mL, Miscellaneous, PREOP pharm insulin glargine 25 unit(s) 0.25 mL, Subcutaneous (INT), acBreakfast insulin lispro 100 units/mL Soln (3 mL) Give 2-18 units/dose, Subcutaneous, achs insulin lispro 100 units/mL Soln (3 mL) 5 unit(s) 0.05 mL, Subcutaneous, acLunch/Supper isosorbide mononitrate 30 mg ER tablet 30 mg 1 tab(s), Oral, qAM levothyroxine 50 mcg tablet 50 mcg 1 tab(s), Oral, qAM metoprolol succinate 50 mg ER tablet 50 mg 1 tab(s), Oral, qDay mupirocin 2% Ointment 22 Gram(s) tube 1 femi, Nostril, each, BID No metformin for 48 hrs post contrast 1 EA, Miscellaneous, Unscheduled No prasugrel (Effient) 7 days before surgery 1 EA, Miscellaneous, Daily NO vitamin E, clopidogrel (Plavix) 5 days before surgery 1 EA, Miscellaneous, Daily predniSONE 10 mg tablet 10 mg 1 tab(s), Oral, qDay vitamin A 10,000 units capsule 10,000 unit(s) 1 cap(s), Oral, qDay Continuous: (8) epinephrine 4 mg + Sodium Chloride 0.9% 250 mL 250 mL, Intravenous heparin 25,000 unit(s) + Dextrose 5% Premix Diluent 250 mL 25,000 unit(s), Intravenous, 10 mL/hr insulin regular 100 unit(s) + Sodium Chloride 0.9% 100 mL 100 mL, Intravenous nitroglycerin 7 mg + verapamil 15 mg + Electrolyte Solution (Plasma-Lyte) IV Soln 1000 mL 1,000 mL 1,000 mL, Miscellaneous norepinephrine 8 mg + Sodium Chloride 0.9% 250 mL 250 mL, Intravenous tranexamic acid PMX 1 gram(s) , IV Piggyback tranexamic acid PMX 1 gram(s) , IV Piggyback tranexamic acid PMX 1 gram(s) , IV Piggyback PRN: (4) albuterol - ipratropium 2.5 mg-0.5 mg/3 mL Inhal Sally UD 3 mL, Inhalation, q4hRT heparin 5,000 units/mL (1 mL) vial 4,000 unit(s) 0.8 mL, IV Push, q6h labetalol 5 mg/mL (4 mL) INJ 10 mg 2 mL, IV Push, q20min melatonin 3 mg tablet 3 mg 1 tab(s), Oral, qHS Lab Results 01/05 04:26 WBC: 11.3 H Hgb: 12.7 L Hct: 38.6 L Platelet: 301 Glucose Level: 117 H Sodium Level: 142 Potassium Level: 4.4 BUN: 36.0 H Creatinine Lvl (s): 1.75 H 01/04 04:24 WBC: 11.8 H Hgb: 12.4 L Hct: 37.7 L Platelet: 278 Glucose Level: 187 H Sodium Level: 138 Potassium Level: 3.9 BUN: 27.0 H Creatinine Lvl (s): 1.63 H EKG No qualifying data available. Assessment/Plan 1. CAD (coronary artery disease) EF 45-50% 2. NSTEMI (non-ST elevated myocardial infarction) 3. QUIN (acute kidney injury) 4. CKD (chronic kidney disease), stage III 5. AF (paroxysmal atrial fibrillation) 6. Diabetes Hgb A1c 8.4% 7. HTN (hypertension) 8. HLD (hyperlipidemia) 9. Hypothyroid 10. 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 PVD (peripheral vascular disease) s/p bilateral BKA 2019 12. 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 Left main: The vessel is very short. 2. LAD: Ostial lesion: There is a 90% stenosis. 3. Ramus intermedius: The vessel is small-medium. Proximal vessel lesion: There is a 50% stenosis. 4. Left circumflex: Ostial lesion: There is a 40% stenosis. Collateral flow from the right coronaryposterolateral extension to the distal left circumflex. 5. Right coronary: Proximal vessel lesion: There is a 50% stenosis TTE Summary: 1. Left ventricle: The cavity size is normal. Wall thickness is severely increased. Concentric LeftVentricular Hypertrophy Systolic function is mildly reduced. The estimated ejection fraction is 45-50%. There is mild diffuse hypokinesis. Possible mild hypokinesis of the mid-apical inferolateral and apical myocardium. Grade II diastolicdysfunction. 2. Ventricular septum: Thickness is severely increased. 3. Mitral valve: The annulus is mildly calcified. The leaflets are mildly thickened. There is mild regurgitation. 4. Left atrium: The atrium is moderately dilated. Plan - Patient went for revascularization with CTS this morning -Creatinine increased to 1.75 today>>UO 350 with - balance of 285. Did get contast on 01/03 for CTA neck for stenosis eval. Metformin held yesterday. Will monitor BMP post surgery and nephrologyfollowing patient - Monitor I&Os and avoid nephrotoxic drugs -Continue ASA/Statin/BB/Imdur/Norvasc -Continue heparin drip for AC for Afib (high CHADVASC score) -Endo on board for DM and hypothyroidism management, appreciate recommendations -Monitor hemodynamics closely Time Spent 35 min Digitally Signed by CELIO CLRAOS MD on 01/05/2022 02:25 PM [id number] Nephrology Progress note Date of Service 01/05/2022 Chief Complaint Unable to obtain. Subjective Patient just returned from OR. Underwent CABG. Intra-Op urine output of around 350 mL. Postop urine output of around 100 mL. Remains on ventilator support with FiO2 of 40%. Currently on Levophed drip at 7 mcg. Also on insulin drip. Objective Vitals and Measurements T: 36.7 C (Oral) TMIN: 35.35 C (Bladder) TMAX: 37.79 C HR: 80(Monitored) RR: 18 BP: 128/60 BP: 84/47(Line) SpO2: 96% Physical Exam HEENT: Eyes closed, ETT present Respiratory: Bilateral air entry is present, decreased at bases Cardiovascular: S1-S2 present, chest tube present Abdomen: Obese, soft, NT, BS present Genitourinary: Diamond catheter present Extremities: Bilateral BKA noted Lab Results 01/05 12:54 WBC: 24.6 H Hgb: 10.9 L Hct: 34.3 L Platelet: 283 Glucose Level: 147 H Sodium Level: 141 Potassium Level: 3.7 BUN: 29.0 H Creatinine Lvl (s): 1.66 H CO2: 24 Calcium: 8.5 Magnesium: 2.5 Phosphorus: 3 01/05 04:26 WBC: 11.3 H Hgb: 12.7 L Hct: 38.6 L Platelet: 301 Glucose Level: 117 H Sodium Level: 142 Potassium Level: 4.4 BUN: 36.0 H Creatinine Lvl (s): 1.75 H 01/04 04:24 WBC: 11.8 H Hgb: 12.4 L Hct: 37.7 L Platelet: 278 Glucose Level: 187 H Sodium Level: 138 Potassium Level: 3.9 BUN: 27.0 H Creatinine Lvl (s): 1.63 H Assessment/Plan Non-oliguric QUIN on stage III CKD: QUIN resolved, creatinine is below baseline 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 Monitor urine output. Avoid NSAIDs and IV contrast. Though patient received IV contrast on 01/03/2022. Labs in AM. Discussed with nursing staff. Will follow. Digitally Signed by TAMIKA RODAS MD on 01/05/2022 02:15 PM [id number] Note ORIGINAL HISTORY: Line placement COMPARISON: 5 days previously FINDINGS: There are sternotomy wires. There is a left chest tube. There are mediastinal drains. There is a left subclavian catheter with tip in the superior vena cava. There is an endotracheal tube with tip at the level of the aortic arch. There is a nasogastric tube is tip is not visualized. Lung volumes are low. There is patchy airspace opacification throughout the left lung. Pulmonary vasculature is somewhat obscured. There is no pneumothorax. IMPRESSION: Interval sternotomy. Left consolidation. Interpreted by: Zack Bucio MD Preliminary Report By: Zack Bucio MD Electronically signed By Zack Bucio MD Dictated Date: 01/05/2022 1:23:29 PM Prelim Date: 01/05/2022 1:24:35 PM Sign Date: 01/05/2022 1:24:35 PM Ordering Provider[facility] Note ORIGINAL HISTORY: Nasogastric tube placement COMPARISON: No FINDINGS: There is a nasogastric tube with tip in the stomach and side hole at the gastroesophageal junction. Interpreted by: Zack Bucio MD Preliminary Report By: Zack Bucio MD Electronically signed By Zack Bucio MD Dictated Date: 01/05/2022 1:22:43 PM Prelim Date: 01/05/2022 1:23:19 PM Sign Date: 01/05/2022 1:23:19 PM [facility] Note ORIGINAL HISTORY: Line placement COMPARISON: 5 days previously FINDINGS: There are sternotomy wires. There is a left chest tube. There are mediastinal drains. There is a left subclavian catheter with tip in the superior vena cava. There is an endotracheal tube with tip at the level of the aortic arch. There is a nasogastric tube is tip is not visualized. Lung volumes are low. There is patchy airspace opacification throughout the left lung. Pulmonary vasculature is somewhat obscured. There is no pneumothorax. IMPRESSION: Interval sternotomy. Left consolidation. Interpreted by: Zack Bucio MD Preliminary Report By: Zack Bucio MD Electronically signed By Zack Bucio MD Dictated Date: 01/05/2022 1:23:29 PM Prelim Date: 01/05/2022 1:24:35 PM Sign Date: 01/05/2022 1:24:35 PM Ordering Provider: [facility]07-20-2022 Note ORIGINAL HISTORY: Nasogastric tube placement COMPARISON: No FINDINGS: There is a nasogastric tube with tip in the stomach and side hole at the gastroesophageal junction. Interpreted by: Zack Bucio MD Preliminary Report By: Zack Bucio MD Electronically signed By Zack Bucio MD Dictated Date: 01/05/2022 1:22:43 PM Prelim Date: 01/05/2022 1:23:19 PM Sign Date: 01/05/2022 1:23:19 PM Ordering Provider: [facility]07-20-2022 Cardiology Progress note Date of Service 01/05/22 Chief Complaint Chest pain, NSTEMI Subjective Patient has gone for CABG. No acute overnight events. Cr continues to uptrend today 1.75, UO 350 with - balance of 285. Metformin held yesterday. Will monitor BMP post surgery and nephrology following patient. Objective Vitals and Measurements T: 36.47 C (Bladder) T: 36.02 C TMIN: 35.35 C (Bladder) TMAX: 36.7 C (Oral) HR: 52(Monitored) RR: 16 BP: 128/60 SpO2: 100% Intake and Output 7AM Yesterday to 7AM Today Intake and Output (Last 24 hours) Intake Administration Information 0.63 Output Urine Voided 100.00 Total Summary Total Intake 0.63 Total Output 100.00 Fluid Balance -99.37 Physical Exam GENERAL: Pt is comfortable in bed. PSYCH: Alert and oriented HEENT: Sclera clear, trachea midline NEURO: No focal neurologic deficits ENDO: Thyroid is non-palpable NECK: No JVD or Carotid Bruit CVS: S1 & S2 audible, Sinus bradycardia, No Murmurs LUNG: Adequate air entry. GI: + BS, Abdomen is Soft EXTREMITIES: Bilateral below the knee amputations, no edema, palpable bilateral popliteal pulses, bilateral femoral pulses +2 SKIN: Warm & Dry Weight Current Weight Dosing Weight: 81.5 kg (01/03/22) Current Weight: 81.5 kg (01/03/22) Dosing Weight: 81.5 kg (01/03/22) Medications Medications (33) Active Scheduled: (21) acetaminophen 1,000 mg, IV Piggyback, q6hr allopurinol 300 mg tablet 300 mg 1 tab(s), Oral, qDayPC amLODIPine 5 mg tablet 5 mg 1 tab(s), Oral, qDay aspirin 81 mg Chewable 81 mg 1 tab(s), Oral, Daily atorvastatin 40 mg tablet 40 mg 1 tab(s), Oral, qDay cardioplegic [place] formula 1,052.8 mL, Miscellaneous, Once cefuroxime 1.5 gram(s), Topical, PREOP pharm citalopram 10 mg tablet 10 mg 1 tab(s), Oral, qAM heparin 10,000 unit(s) 1 mL, Miscellaneous, PREOP pharm insulin glargine 25 unit(s) 0.25 mL, Subcutaneous (INT), acBreakfast insulin lispro 100 units/mL Soln (3 mL) Give 2-18 units/dose, Subcutaneous, achs insulin lispro 100 units/mL Soln (3 mL) 5 unit(s) 0.05 mL, Subcutaneous, acLunch/Supper isosorbide mononitrate 30 mg ER tablet 30 mg 1 tab(s), Oral, qAM levothyroxine 50 mcg tablet 50 mcg 1 tab(s), Oral, qAM metoprolol succinate 50 mg ER tablet 50 mg 1 tab(s), Oral, qDay mupirocin 2% Ointment 22 Gram(s) tube 1 femi, Nostril, each, BID No metformin for 48 hrs post contrast 1 EA, Miscellaneous, Unscheduled No prasugrel (Effient) 7 days before surgery 1 EA, Miscellaneous, Daily NO vitamin E, clopidogrel (Plavix) 5 days before surgery 1 EA, Miscellaneous, Daily predniSONE 10 mg tablet 10 mg 1 tab(s), Oral, qDay vitamin A 10,000 units capsule 10,000 unit(s) 1 cap(s), Oral, qDay Continuous: (8) epinephrine 4 mg + Sodium Chloride 0.9% 250 mL 250 mL, Intravenous heparin 25,000 unit(s) + Dextrose 5% Premix Diluent 250 mL 25,000 unit(s), Intravenous, 10 mL/hr insulin regular 100 unit(s) + Sodium Chloride 0.9% 100 mL 100 mL, Intravenous nitroglycerin 7 mg + verapamil 15 mg + Electrolyte Solution (Plasma-Lyte) IV Soln 1000 mL 1,000 mL 1,000 mL, Miscellaneous norepinephrine 8 mg + Sodium Chloride 0.9% 250 mL 250 mL, Intravenous tranexamic acid PMX 1 gram(s) , IV Piggyback tranexamic acid PMX 1 gram(s) , IV Piggyback tranexamic acid PMX 1 gram(s) , IV Piggyback PRN: (4) albuterol - ipratropium 2.5 mg-0.5 mg/3 mL Inhal Sally UD 3 mL, Inhalation, q4hRT heparin 5,000 units/mL (1 mL) vial 4,000 unit(s) 0.8 mL, IV Push, q6h labetalol 5 mg/mL (4 mL) INJ 10 mg 2 mL, IV Push, q20min melatonin 3 mg tablet 3 mg 1 tab(s), Oral, qHS Lab Results 01/05 04:26 WBC: 11.3 H Hgb: 12.7 L Hct: 38.6 L Platelet: 301 Glucose Level: 117 H Sodium Level: 142 Potassium Level: 4.4 BUN: 36.0 H Creatinine Lvl (s): 1.75 H 01/04 04:24 WBC: 11.8 H Hgb: 12.4 L Hct: 37.7 L Platelet: 278 Glucose Level: 187 H Sodium Level: 138 Potassium Level: 3.9 BUN: 27.0 H Creatinine Lvl (s): 1.63 H EKG No qualifying data available. Assessment/Plan 1. CAD (coronary artery disease) EF 45-50% 2. NSTEMI (non-ST elevated myocardial infarction) 3. QUIN (acute kidney injury) 4. CKD (chronic kidney disease), stage III 5. AF (paroxysmal atrial fibrillation) 6. Diabetes Hgb A1c 8.4% 7. HTN (hypertension) 8. HLD (hyperlipidemia) 9. Hypothyroid 10. 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 PVD (peripheral vascular disease) s/p bilateral BKA 2019 12. 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 Left main: The vessel is very short. 2. LAD: Ostial lesion: There is a 90% stenosis. 3. Ramus intermedius: The vessel is small-medium. Proximal vessel lesion: There is a 50% stenosis. 4. Left circumflex: Ostial lesion: There is a 40% stenosis. Collateral flow from the right coronaryposterolateral extension to the distal left circumflex. 5. Right coronary: Proximal vessel lesion: There is a 50% stenosis TTE Summary: 1. Left ventricle: The cavity size is normal. Wall thickness is severely increased. Concentric LeftVentricular Hypertrophy Systolic function is mildly reduced. The estimated ejection fraction is 45-50%. There is mild diffuse hypokinesis. Possible mild hypokinesis of the mid-apical inferolateral and apical myocardium. Grade II diastolicdysfunction. 2. Ventricular septum: Thickness is severely increased. 3. Mitral valve: The annulus is mildly calcified. The leaflets are mildly thickened. There is mild regurgitation. 4. Left atrium: The atrium is moderately dilated. Plan - Patient went for revascularization with CTS this morning -Creatinine increased to 1.75 today>>UO 350 with - balance of 285. Did get contast on 01/03 for CTA neck for stenosis eval. Metformin held yesterday. Will monitor BMP post surgery and nephrologyfollowing patient - Monitor I&Os and avoid nephrotoxic drugs -Continue ASA/Statin/BB/Imdur/Norvasc -Continue heparin drip for AC for Afib (high CHADVASC score) -Endo on board for DM and hypothyroidism management, appreciate recommendations -Monitor hemodynamics closely Time Spent 35 min Digitally Signed by CELIO CLAROS MD on 01/05/2022 02:25 PM [id number] Anesthesiology Consult note Patient: ELIZABETH MODI Age: 81 years Sex: Male : 1940 Associated Diagnoses: None Author: LINN RICHARD DO Preoperative Information Greater than 6 hours Anesthesia history Patient's history: negative. Family's history: negative. Review of Systems Ear/Nose/Mouth/Throat: Negative except as documented in history of present illness. Respiratory: Negative except as documented in history of present illness. Cardiovascular: Negative except as documented in history of present illness. Gastrointestinal: Negative except as documented in history of present illness. Genitourinary: Negative except as documented in history of present illness. Endocrine: Negative except as documented in history of present illness. Musculoskeletal: Negative except as documented in history of present illness. Integumentary: Negative except as documented in history of present illness. Neurologic: Negative except as documented in history of present illness. Health Status Allergies: Allergic Reactions (Selected) NKA, Allergies (1) ActiveReaction NKANone Documented Current medications: (Selected) Inpatient Medications Ordered Adrenalin 4 mg + Normal Saline 250 mL: Start: 01/05/22 6:00:00 EDT, 18 hour(s), Stop date 01/05/22 23:59:00 EDT, Infuse as directed for CVOR Cardioplegic [place]: Start: 01/05/22 6:00:00 EDT, Stop date 01/05/22 6:00:00 EDT, Rate: 0 mL/hr Cefuroxime Inj (Zinacef): Start: 01/05/22 6:00:00 EDT, Dose = 1.5 gram(s), Topical, PREOP pharm, 18hour(s), Stop: 01/05/22 23:59:00 EDT, mL/hr, Infuse over: 0 minute(s), 0 DuoNeb: Start: 12/30/21 6:48:00 EDT, Dose = 3 mL, Soln, Inhalation, q4hRT, PRN, decreased breath sounds, 12/30/21 6:48:00 EDT Heparin 10,000 units/mL: Start: 06/25/21 6:00:00 EST, Dose = 10,000 unit(s), = 1 mL, Miscellaneous,PREOP pharm, 12 hour(s), Stop: 06/25/21 17:59:00 EST, mL/hr, Infuse over: 0 minute(s), 0 Heparin 10,000 units/mL: Start: 01/05/22 6:00:00 EDT, Dose = 10,000 unit(s), = 1 mL, Miscellaneous,PREOP pharm, 12 hour(s), Stop: 01/05/22 17:59:00 EDT, mL/hr, Infuse over: 0 minute(s), 0 Heparin HBW CARDIAC Bolus 5000 units/mL: Start: 12/30/21 6:52:00 EDT, Dose = 4,000 unit(s), = 0.8 mL, IV Push, q6h, PRN, Protocol, Weight Based Heparin, 12/30/21 6:52:00 EDT HumaLOG 100 units/mL subcutaneous solution: Start: 01/01/22 8:24:00 EDT, Give 2- 18 units/dose, Subcutaneous, achs, NOW, 0, 01/01/22 8:24:00 EDT Kefzol: Start: 01/05/22 6:00:00 EDT, Dose= 2 gram(s), = 20 mL, IV Push (INT), PREOP pharm, Routine,Rate: 240 mL/hr, Infuse over: 5 minute(s), 20 mL, 01/05/22 6:00:00 EDT Lantus: Start: 01/03/22 7:30:00 EDT, Dose = 25 unit(s), = 0.25 mL, Subcutaneous (INT), acBreakfast,Rate: 0 mL/hr, Infuse over: 0 minute(s), 0, 01/02/22 20:42:00 EDT Lipitor: Start: 12/31/21 22:00:00 EDT, Dose = 40 mg, = 1 tab(s), Oral, qDay, 12/31/21 7:55:00 EDT NO METFORMIN (Glucophage) X 48hrs-patient has received contrast: Start: 12/31/21 15:00:00 EDT, Unscheduled, 48 hour(s), Stop: 01/02/22 14:59:00 EDT, 12/31/21 14:47:00 EDT No Vitamin E,clopidogrel (Plavix), 5 days before surgery: Start: 12/31/21 17:16:00 EDT, Daily, 12/31/21 17:16:00 EDT No prasugrel (Effient) 7 days before surgery: Start: 12/31/21 17:16:00 EDT, Daily, 12/31/21 17:16:00 EDT Peridex 0.12% oral rinse liquid: Start: 01/04/22 21:00:00 EDT, Dose = 15 mL, Liq, Oral, BID, 2 dose(s), Stop: 01/05/22 9:00:00 EDT, 01/04/22 21:00:00 EDT allopurinol: Start: 01/01/22 17:00:00 EDT, Dose = 300 mg, = 1 tab(s), Oral, qDayPC, 0, 01/01/22 16:08:00 EDT amLODIPine: Start: 01/05/22 9:00:00 EDT, Dose = 5 mg, = 1 tab(s), Oral, qDay, 01/05/22 9:00:00 EDT aspirin: Start: 12/30/21 10:57:00 EDT, Dose = 81 mg, = 1 tab(s), Oral, Daily, 0, 12/30/21 10:02:00 EDT citalopram: Start: 12/30/21 9:00:00 EDT, Dose = 10 mg, = 1 tab(s), Oral, qAM, 0, 12/30/21 6:50:00 EDT heparin 25,000 unit(s) + Dextrose 5% Premix Diluent 250 mL: Start: 12/30/21 8:30:00 EDT, Rate: 10 mL/hr insulin regular 100 unit(s) + Normal Saline 100 mL: Start: 01/05/22 6:00:00 EDT, Stop date 01/05/2223:59:00 EDT, Infuse as directed for CVOR isosorbide mononitrate 30 mg oral tablet, extended release: Start: 01/01/22 9:00:00 EDT, Dose = 30 mg, = 1 tab(s), Oral, qAM, 0, 01/01/22 9:00:00 EDT labetalol: Start: 12/31/21 16:56:00 EDT, Dose = 10 mg, = 2 mL, IV Push, q20min, PRN, Other (see order comments), Routine, 10 dose(s), Stop: Limited # of times, Give if SBP (mmHg) > 140, Hold if HR(bpm) < 55, 12/31/21 16:56:00 EDT levothyroxine: Start: 12/30/21 6:51:00 EDT, Dose = 50 mcg, = 1 tab(s), Oral, qAM, 12/30/21 6:51:00 EDT melatonin: Start: 12/30/21 6:48:00 EDT, Dose = 3 mg, = 1 tab(s), Oral, qHS, PRN, Sleep, 12/30/21 6:48:00 EDT metoprolol succinate 50 mg oral TABLET extended release: Start: 12/30/21 8:00:00 EDT, Dose = 50 mg,= 1 tab(s), Oral, qDay, 0, 12/30/21 6:51:00 EDT mupirocin 2% topical ointment: Start: 12/31/21 21:00:00 EDT, Dose = 1 femi, Nostril, each, BID, Apply to: each nostril, 10 day(s), Stop: 01/10/22 9:00:00 EDT, Ointment, 12/31/21 17:16:00 EDT nitroGLYcerin 7 mg + verapamil 15 mg + Plasma-Lyte A PH-7.4 1,000 mL: Start: 01/05/22 6:00:00 EDT, 8 hour(s), Stop date 01/05/22 13:59:00 EDT, Use as directed in CVOR norepinephrine 8 mg + Normal Saline 250 mL: Start: 01/05/22 6:00:00 EDT, 18 hour(s), Stop date 01/05/22 23:59:00 EDT, Infuse as directed for CVOR predniSONE: Start: 12/31/21 9:34:00 EDT, Dose = 10 mg, = 1 tab(s), Oral, qDay, 12/31/21 9:34:00 EDT tranexamic acid 1 gram(s): 01/05/22 6:00:00 EDT, PMX bag, IV Piggyback, 18 hour(s), Physician Stop,Stop date 01/05/22 23:59:00 EDT tranexamic acid 1 gram(s): 01/05/22 6:00:00 EDT, PMX bag, IV Piggyback, 18 hour(s), Physician Stop,Stop date 01/05/22 23:59:00 EDT tranexamic acid 1 gram(s): 01/05/22 6:00:00 EDT, PMX bag, IV Piggyback, 18 hour(s), Physician Stop,Stop date 01/05/22 23:59:00 EDT vancomycin IVPB: Start: 01/05/22 6:00:00 EDT, Dose = 1,250 mg, = 25 mL, IV Piggyback, PREOP pharm, Rate: 220 mL/hr, Infuse over: 75 minute(s), 0, 01/05/22 6:00:00 EDT vitamin A: Start: 01/02/22 9:00:00 EDT, Dose = 10,000 unit(s), = 1 cap(s), Oral, qDay, 01/02/22 8:37:00 EDT Suspended MetFORMIN (Eqv-Glucophage XR): Start: 01/02/22 17:00:00 EDT, Dose = 500 mg, = 1 tab(s), Oral, BID, 01/02/22 17:00:00 EDT Documented Medications Documented Eliquis 5 mg oral tablet: Dose : 5 mg = 1 tab(s), Oral, BID, 0 Refill(s) HumaLOG 100 units/mL injectable solution VIAL: Dose : 50 unit(s) =, Subcutaneous, TID Lipitor: Dose : 20 mg =, Oral, qDay, 0 Refill(s) Toujeo Max SoloStar 300 units/mL subcutaneous solution: Dose : 100 unit(s) =, Subcutaneous, qHS, 0 Refill(s) amiodarone 200 mg oral tablet: Dose : 200 mg = 1 tab(s), Oral, qAM, 0 Refill(s) citalopram 10 mg oral tablet: Dose : 10 mg = 1 tab(s), Oral, qAM, 0 Refill(s) isosorbide mononitrate 30 mg oral tablet, extended release: Dose : 15 mg = 0.5 tab(s), Oral, qAM, 0Refill(s) levothyroxine 50 mcg (0.05 mg) oral tablet: Dose : 50 mcg = 1 tab(s), Oral, qAM lisinopril: Dose : 20 mg =, Oral, qDay, 0 Refill(s) metoprolol succinate 50 mg oral TABLET extended release: Dose : 50 mg = 1 tab(s), Oral, qDay, Do not crush or chew (controlled release) predniSONE 10 mg oral tablet: Dose : 10 mg = 1 tab(s), Oral, qDay, 0 Refill(s), Medications (34) Active Scheduled: (22) allopurinol 300 mg tablet 300 mg 1 tab(s), Oral, qDayPC amLODIPine 5 mg tablet 5 mg 1 tab(s), Oral, qDay aspirin 81 mg Chewable 81 mg 1 tab(s), Oral, Daily atorvastatin 40 mg tablet 40 mg 1 tab(s), Oral, qDay cardioplegic [place] formula 1,052.8 mL, Miscellaneous, Once ceFAZolin syringe 2 gram(s) 20 mL, IV Push (INT), PREOP pharm cefuroxime 1.5 gram(s), Topical, PREOP pharm chlorhexidine topical 0.12% Liquid (60 mL) 15 mL, Oral, BID citalopram 10 mg tablet 10 mg 1 tab(s), Oral, qAM heparin 10,000 unit(s) 1 mL, Miscellaneous, PREOP pharm insulin glargine 25 unit(s) 0.25 mL, Subcutaneous (INT), acBreakfast insulin lispro 100 units/mL Soln (3 mL) Give 2-18 units/dose, Subcutaneous, achs isosorbide mononitrate 30 mg ER tablet 30 mg 1 tab(s), Oral, qAM levothyroxine 50 mcg tablet 50 mcg 1 tab(s), Oral, qAM metoprolol succinate 50 mg ER tablet 50 mg 1 tab(s), Oral, qDay mupirocin 2% Ointment 22 Gram(s) tube 1 femi, Nostril, each, BID No metformin for 48 hrs post contrast 1 EA, Miscellaneous, Unscheduled No prasugrel (Effient) 7 days before surgery 1 EA, Miscellaneous, Daily NO vitamin E, clopidogrel (Plavix) 5 days before surgery 1 EA, Miscellaneous, Daily predniSONE 10 mg tablet 10 mg 1 tab(s), Oral, qDay vancomycin 1,250 mg 25 mL, IV Piggyback, PREOP pharm vitamin A 10,000 units capsule 10,000 unit(s) 1 cap(s), Oral, qDay Continuous: (8) epinephrine 4 mg + Sodium Chloride 0.9% 250 mL 250 mL, Intravenous heparin 25,000 unit(s) + Dextrose 5% Premix Diluent 250 mL 25,000 unit(s), Intravenous, 10 mL/hr insulin regular 100 unit(s) + Sodium Chloride 0.9% 100 mL 100 mL, Intravenous nitroglycerin 7 mg + verapamil 15 mg + Electrolyte Solution (Plasma-Lyte) IV Soln 1000 mL 1,000 mL 1,000 mL, Miscellaneous norepinephrine 8 mg + Sodium Chloride 0.9% 250 mL 250 mL, Intravenous tranexamic acid PMX 1 gram(s) , IV Piggyback tranexamic acid PMX 1 gram(s) , IV Piggyback tranexamic acid PMX 1 gram(s) , IV Piggyback PRN: (4) albuterol - ipratropium 2.5 mg-0.5 mg/3 mL Inhal Sally UD 3 mL, Inhalation, q4hRT heparin 5,000 units/mL (1 mL) vial 4,000 unit(s) 0.8 mL, IV Push, q6h labetalol 5 mg/mL (4 mL) INJ 10 mg 2 mL, IV Push, q20min melatonin 3 mg tablet 3 mg 1 tab(s), Oral, qHS Problem list: Medical CKD (chronic kidney disease), stage III / SNOMED CT 8852223650 / Confirmed CAD (coronary artery disease) / SNOMED CT 61373647 / Confirmed Diabetes / SNOMED CT 824353612 / Confirmed History of Singh's palsy / SNOMED CT 461479940 / Confirmed HLD (hyperlipidemia) / SNOMED CT 39066704 / Confirmed HTN (hypertension) / SNOMED CT 5999588199 / Confirmed Hypothyroid / SNOMED CT 96228369 / Confirmed QUIN (acute kidney injury) / SNOMED CT 04667068 / Confirmed Mood disorder / SNOMED CT 33951350 / Confirmed NSTEMI (non-ST elevated myocardial infarction) / SNOMED CT 24890822 / Confirmed AF (paroxysmal atrial fibrillation) / SNOMED CT 435765755 / Confirmed PVD (peripheral vascular disease) / SNOMED CT 4903352165 / Confirmed Giant cell arteritis / SNOMED CT 6484739798 / Confirmed, Active Problems (24) AF (paroxysmal atrial fibrillation) QUIN (acute kidney injury) CAD (coronary artery disease) Cataract CKD (chronic kidney disease), stage III COPD (chronic obstructive pulmonary disease) Depression Diabetes DM (diabetes mellitus) Giant cell arteritis Giant cell arteritis syndrome Glasses Heart disease High blood pressure History of Singh's palsy HLD (hyperlipidemia) HTN (hypertension) Hypothyroid Kidney disease [place] (myocardial infarction) Mood disorder NSTEMI (non-ST elevated myocardial infarction) PVD (peripheral vascular disease) Tachycardia Histories Past Medical History: No active or resolved past medical history items have been selected or recorded. Family History: No family history items have been selected or recorded. Procedure history: Amputation ([id number]) in 2020 at 79 Years. Comments: 07/12/2021 14:23 Maria Esther Navarro RN Left below the knee Amputation ([id number]) in 2020 at 79 Years. Comments: 07/12/2021 14:24 Maria Esther Navarro RN right below the knee amputation Catheter ([id number]) in 2020 at 79 Years. Comments: 07/12/2021 14:25 Maria Esther Navarro RN Temporary dialysis cath None ([id number]). Social History Social & Psychosocial Habits Alcohol 07/12/2021 Use: Current Type: Beer Frequency: 1-2 times per year Substance Abuse 07/12/2021 Use: Never Tobacco 07/12/2021 Tobacco Use: Former smoker, quit more Type: Cigarettes Stopped at age: 55 Years Nutrition/Health 07/12/2021 Type of diet: Diabetic, Regular Appetite Good Eating Difficulties None, full set of dentures . Physical Examination General: Alert and oriented. Airway: Normal temporomandibular joint mobility, Normal mouth, Normal throat, Normal neck range of motion, Trachea midline. Mallampati classification: II (soft palate, fauces, uvula visible). Head: Normocephalic. Dentition Evaluation: Dentures, lower, Dentures, upper, Denies loose/chipped teeth. Neck: Supple. Respiratory: Lungs are clear to auscultation, Respirations are non-labored. Cardiovascular: Normal rate, Regular rhythm, No murmur. Heart Sounds: Normal. Gastrointestinal: Soft. Musculoskeletal bilat bka. Integumentary: Intact, Warm, Dry. Neurologic: Alert, Oriented. Review / Management Results review: Lab results 01/05/2022 6:00 EDT levothyroxine Not Done: Patient NPO (Not Done) 01/05/2022 5:28 EDT Urinary Elimination Voiding, no difficulties IV Present Present Allergies No Financial Advocate On Yes Patient Dressed In Hospital gown Pre-op Preparation Undergarments removed CHG Preoperative Wash/Wipe Day of procedure CHG Skin Prep Completed for Eligible Surgery Allergy Band on and Verified No Patient ID Band on and Verified Yes 01/05/2022 5:10 EDT Temperature Oral 36.5 DegC Heart Rate Monitored 49 bpm LOW Respiratory Rate 16 br/min Systolic Blood Pressure NBP 128 mmHg Diastolic Blood Pressure NBP 60 mmHg Mean Arterial Pressure (NBP) 78 mmHg Reason For Taking VItal Signs Routine Primary Pain Intensity 0 Primary Pain Nonverbal Response Nods No Pain Scale Type 0-10 Pain scale Monitor Alarms On and Limits Checked Nail Bed Color [place] Capillary Refill < 2 seconds Heart Sounds ICU S1S2 Heart Rhythm Regular Radial Pulse, Left 2+ Normal Radial Pulse, Right 2+ Normal Popliteal Pulse, Left 1+ Thready Popliteal Pulse, Right 1+ Thready Edema Generalized None Cardiac Rhythm Sinus bradycardia ST Segment Measurement 0.[address] Segment Measurement [address] Segment Measurement -0.1 mm Respirations Unlabored Respiratory Pattern Regular Nasal Symptoms None Breath Sounds Auscultated Anterior and posterior All Lobes Breath Sounds Clear Cough and Deep Breathe Done Cough None Oxygen Therapy Room air Oxygen Saturation 94 % Tracheal Position Midline Abdomen Description Non-distended Abdomen Palpation Non-Tender Bowel Continence LTC No bowel movement Bowel Sounds All Quadrants Present Urinary Elimination Voiding, no difficulties Urine Color Yellow, Dark Urine Description Small amount Facial Movement Makes facial grimaces, Symmetric resting/crying Skin Symptoms Bruising All Extremity Description Normal for ethnicity Skin Temperature Warm Temperature All Extremities Warm Skin Description [place], Normal for ethnicity, Dry Skin Integrity Pressure points intact Skin Turgor Elastic Mucous Membrane Color [place] Mucous Membrane Description Moist Sensory Perception Dre No impairment Moisture Dre Rarely moist Activity Dre Bedfast Mobility Dre Slightly limited Nutrition Dre Adequate Friction and Shear Dre Potential problem Dre Score 17 Hospital Acquired Pressure Injury Risk Low risk (score 15-18) Leg Bilateral Skin Abnormality Type: Abrasion Incision, Wound Dressing/Activity: Assessed Incision, Wound Dressing: Open to air Wound Exudate Amount: None Incision, Wound Surrounding Tissue: Normal Wound Status: No complications Head Skin Abnormality Type: Surgical incision Skin Abnormality Pattern: Linear Incision, Wound Dressing/Activity: Open to air Wound Edge: Approximated Incision, Wound Surrounding Tissue: Normal Wound Status: No complications Antecubital Left 20 gauge Peripheral IV Activity: Assessed Peripheral IV Dressing Condition: Clean, Dry, Intact Peripheral IV Dressing Activity: Transparent dressing Peripheral IV Line Status/Patency: Flushes easily, 10ml normal saline flush Peripheral IV Line Care: Needleless Protector End Cap(s) in place, Secured with tape Peripheral IV Site Condition: No complications Peripheral IV Equipment: PRN Adaptor Forearm Right 01/01/2022 20 gauge Peripheral IV Activity: Assessed Peripheral IV Dressing Condition: Clean, Dry, Intact Peripheral IV Dressing Activity: Transparent dressing Peripheral IV Line Status/Patency: Flushes easily, 3ml normal saline flush Peripheral IV Line Care: Needleless Protector End Cap(s) in place, Secured with tape Peripheral IV Site Condition: No complications Peripheral IV Equipment: PRN Adaptor Radial Artery Right Vascular Access Site Condition: No complications Vascular Access Distal Pulses: Palpable Neurological Language Able to speak clearly, Follows simple commands Neurological Symptoms Patient denies Gait Unable to assess Extremity Movement Equal Swallowing Difficulty None Characteristics of Communication Appropriate Characteristics of Speech Clear Facial Symmetry Symmetric Level of Consciousness Arousable with minimal stimulation Aspiration Risk None FERNANDO Yes Left Pupil Description Regular, Round Right Pupil Description Regular, Round Left Pupil Reaction Brisk, Consensual light reflex present Right Pupil Reaction Brisk, Consensual light reflex present Pupil Size, Left 3 mm Pupil Size, Right 3 mm Pupil Accommodation Left Pupil constriction Pupil Accommodation Right Pupil constriction Left Upper Extremity Strength Strong Right Upper Extremity Strength Strong Left Upper Extremity Sensation Intact Right Upper Extremity Sensation Intact CN V Facial Sensation Corneal reflex present CN VII Facial Expression and Symmetry Facial movement symmetrical CN VIII Hearing Oculocephalic reflex present CN IX, X Swallowing, Gag Reflex Swallowing present CAM Mental Status Change & Fluctuation No CAM Inattention No CAM Disorganized Thinking No CAM Altered Level of Consciousness No Confusion Assessment Method Score Negative Reza Screen Daily History of Fall in Last 3 Months Reza No Presence of Secondary Diagnosis Reza Yes Use of Ambulatory Aid Reza None, bedrest, wheelchair, nurse IV/PRN Adapter Fall Risk Reza Yes Gait Weak or Impaired Fall Risk Reza Normal, bedrest, immobile Mental Status Fall Risk Reza Oriented to own ability Reza Fall Risk Score 35 Participative in Fall Prevention Yes Violence Risk Confused No Violence Risk Irritable No Violence Risk Boisterous No Violence Risk Verbal Threats No Violence Risk Physical Threats No Violence Risk Attacking Objects No Violence Risk Predictor Score 0 Violence Risk Intervention None Violence Risk Current Interventions None Affect/Behavior Appropriate, Calm, Cooperative Orientation Oriented x 4 Leg Bilateral Musculoskeletal Abnormality: Amputation Amputation Site: Below the knee Musculoskeletal Symptoms: None Activity Status ADL Sleeps intermittently Beds/Devices Hospital bed Activity Assistance Minimum assistance Assistive Device Wheelchair Standard Safety ID band on, Call device within reach, Bed in low position, Wheels locked, Upper/Half-Length side-rails up, Phone within reach, personal items within reach, Assistive devices within reach, Safety level maintained, Hazards removed from floor, Non-Slip footwear, Precautions maintained High Risk Safety Door open, Bathroom light on, Non-Slip footwear, Room check performed Demonstrates Correct Call Light Use Yes 01/05/2022 4:26 EDT WBC 11.3 10^3/mcL HI RBC 4.39 10^6/mcL LOW Hgb 12.7 G/dL LOW Hct 38.6 % LOW MCV 87.9 fL MCH 28.9 pg MCHC 32.9 G/dL RDW 15.9 % HI Platelet 301 10^3/mcL MPV 8.3 fL Monocyte Distribution Width Not Performed Glucose Level 117 mg/dL HI Sodium Level 142 mEq/L Potassium Level 4.4 mEq/L Chloride 108 mEq/L CO2 25 mEq/L Electrolyte Balance 9.0 mEq/L BUN 36.0 mg/dL HI Creatinine Lvl (s) 1.75 mg/dL HI BUN/Creatinine Ratio 20.6 ratio Calcium Lvl 9.3 mg/dL Magnesium Lvl 1.9 mg/dL Total Protein 6.4 G/dL Albumin Level 3.1 G/dL LOW Globulin 3.3 G/dL A/G Ratio 0.9 ratio Bili Total 1.20 mg/dL Alk Phos 86 U/L AST/SGOT 18 U/L ALT/SGPT 19 U/L GFR Non- 38 ml/min/1.73sqm NA GFR 46 ml/min/1.73sqm NA Creatinine Clearance Calc 23.64 mL/min Slide Review Man Indicated 01/05/2022 3:58 EDT Post Rehab Outcome Not Done: Not Appropriate at this Time (Not Done) Cardiac Rehab - Phase I Not Done (Not Done) 01/05/2022 3:55 EDT Cardiac Rhythm Sinus rhythm Monitoring Lead II, V1/MCL1 CT Interval 0.17 second(s) QRS Duration 0.12 second(s) QT Interval 0.57 second(s) QTc Interval 0.51 second(s) Alarms On and Functional Yes Heart Rate Alarm Set At - Low 50 Heart Rate Alarm Set At - High 120 01/05/2022 2:30 EDT heparin unit(s)/kg/hr unit(s) Dextrose 5% Premix Diluent Dextrose 5% Premix Diluent mL 01/05/2022 0:29 EDT CAM Mental Status Change & Fluctuation No CAM Inattention No CAM Disorganized Thinking No CAM Altered Level of Consciousness No Confusion Assessment Method Score Negative Able To Drink Order Detail Yes Able To Sign Consents Order Detail Yes Code Status Order Detail Full code IV Order Detail Yes Dialysis Schedule Order Detail N/A Has Diabetes Order Detail Yes Isolation Precautions Order Detail None Nurse Collect Order Detail 0 Oxygen Order Detail No Order Detail N/A Prior Valve Replacement Order Detail No Transport Mode Order Detail MTT with Monitor Beam Department Supervisor Details Form Beam Department Supervisor Details Form 01/05/2022 0:28 EDT Skin Assessment Verification Transfer Able To Drink Order Detail Yes Able To Sign Consents Order Detail Yes Code Status Order Detail Full code IV Order Detail Yes Dialysis Schedule Order Detail N/A Has Diabetes Order Detail Yes Isolation Precautions Order Detail None Nurse Collect Order Detail 0 Oxygen Order Detail No Order Detail N/A Prior Valve Replacement Order Detail No Transport Mode Order Detail MTT with Monitor Beam Department Supervisor Details Form Beam Department Supervisor Details Form 01/04/2022 23:29 EDT heparin Begin Bag 2.5 mL unit(s) Dextrose 5% Premix Diluent Begin Bag 250 mL mL 01/04/2022 23:15 EDT Temperature Oral 36.6 DegC Heart Rate Monitored 64 bpm Respiratory Rate 16 br/min Systolic Blood Pressure NBP 112 mmHg Diastolic Blood Pressure NBP 63 mmHg Mean Arterial Pressure (NBP) 78 mmHg Reason For Taking VItal Signs Routine Primary Pain Intensity 0 Pain Scale Type 0-10 Pain scale Monitor Alarms On and Limits Checked Nail Bed Color [place] Capillary Refill < 2 seconds Heart Sounds ICU S1S2 Heart Rhythm Regular Radial Pulse, Left 2+ Normal Radial Pulse, Right 2+ Normal Popliteal Pulse, Left 1+ Thready Popliteal Pulse, Right 1+ Thready Edema Generalized None Cardiac Rhythm Sinus rhythm Monitoring Lead II, V1/MCL1 CT Interval 0.18 second(s) QRS Duration 0.12 second(s) QT Interval 0.47 second(s) QTc Interval 0.48 second(s) Alarms On and Functional Yes Respirations Unlabored Respiratory Pattern Regular Breath Sounds Auscultated Anterior only All Lobes Breath Sounds Clear Oxygen Therapy Room air Abdomen Description Non-distended, Symmetric, Soft Abdomen Palpation Non-Tender Bowel Sounds All Quadrants Present Urinary Elimination Voiding, no difficulties All Extremity Description [place], Normal for ethnicity Skin Temperature Warm Temperature All Extremities Warm Skin Description [place], Normal for ethnicity Mucous Membrane Color [place] Mucous Membrane Description Moist Leg Bilateral Skin Abnormality Type: Abrasion Incision, Wound Dressing/Activity: Assessed Incision, Wound Dressing: Open to air Wound Exudate Amount: None Incision, Wound Surrounding Tissue: Normal Wound Status: No complications Head Skin Abnormality Type: Surgical incision Skin Abnormality Pattern: Linear Incision, Wound Dressing/Activity: Open to air Wound Edge: Approximated Incision, Wound Surrounding Tissue: Normal Wound Status: No complications Antecubital Left 20 gauge Peripheral IV Activity: Assessed Peripheral IV Site Condition: No complications Forearm Right 01/01/2022 20 gauge Peripheral IV Activity: Assessed Peripheral IV Site Condition: No complications Radial Artery Right Vascular Access Site Condition: No complications Vascular Access Distal Pulses: Palpable Neurological Symptoms Patient denies Level of Consciousness Arousable with minimal stimulation FERNANDO Yes Left Upper Extremity Strength Strong Right Upper Extremity Strength Strong Left Upper Extremity Sensation Intact Right Upper Extremity Sensation Intact Violence Risk Confused No Violence Risk Irritable No Violence Risk Boisterous No Violence Risk Verbal Threats No Violence Risk Physical Threats No Violence Risk Attacking Objects No Violence Risk Predictor Score 0 Violence Risk Intervention None Violence Risk Current Interventions None Affect/Behavior Appropriate, Calm, Cooperative Orientation Oriented x 4 Orientation Assessment Oriented x 4 Activity Status ADL Repositions self, Resting, Sleeping quietly with easy respirations Beds/Devices Hospital bed Activity Assistance Minimum assistance Standard Safety ID band on, Call device within reach, Bed in low position, Wheels locked, Upper/Half-Length side-rails up, Phone within reach, personal items within reach, Assistive devices within reach, Safety level maintained, Non-Slip footwear High Risk Safety Room check performed Demonstrates Correct Call Light Use Yes heparin 8.7 unit(s)/kg/hr unit(s) Dextrose 5% Premix Diluent Dextrose 5% Premix Diluent mL 01/04/2022 23:03 EDT Temperature Oral 36.6 DegC Heart Rate Monitored 62 bpm Respiratory Rate 16 br/min Systolic Blood Pressure NBP 112 mmHg Diastolic Blood Pressure NBP 63 mmHg Mean Arterial Pressure (NBP) 78 mmHg Reason For Taking VItal Signs Routine Oxygen Therapy Room air Oxygen Saturation 93 % Activity Status ADL Awake, Lights dimmed, Repositions self, Resting Beds/Devices Hospital bed Standard Safety ID band on, Call device within reach, Bed in low position, Wheels locked, Upper/Half-Length side-rails up, Phone within reach, personal items within reach, Safety level maintained, Non-Slip footwear High Risk Safety Non-Slip footwear, Room check performed Demonstrates Correct Call Light Use Yes Urine Voided 100 mL 01/04/2022 22:12 EDT atorvastatin 40 mg mg chlorhexidine topical 15 mL mL insulin lispro 6 unit(s) unit(s) mupirocin topical 1 femi femi 01/04/2022 22:06 EDT CHG Preoperative Wash/Wipe Night before procedure Bed Bath Two assist Skin Care Done Skin Care Product Applied CHG bath Linen Change Done 01/04/2022 21:26 EDT Blood Glucose, Capillary 206 mg/dL HI Blood Glucose Testing Reason Routine 01/04/2022 19:40 EDT Temperature Oral 36.6 DegC Reason For Taking VItal Signs Routine Primary Pain Intensity 0 Primary Pain Nonverbal Response Appears restful Pain Scale Type 0-10 Pain scale Monitor Alarms On and Limits Checked Nail Bed Color [place] Capillary Refill < 2 seconds Heart Sounds ICU S1S2 Heart Rhythm Regular Radial Pulse, Left 2+ Normal Radial Pulse, Right 2+ Normal Popliteal Pulse, Left 1+ Thready Popliteal Pulse, Right 1+ Thready Edema Generalized None Cardiac Rhythm Sinus rhythm Monitoring Lead II, V1/MCL1 CT Interval 0.19 second(s) QRS Duration 0.12 second(s) QT Interval 0.50 second(s) QTc Interval 0.49 second(s) Alarms On and Functional Yes Heart Rate Alarm Set At - Low 50 Heart Rate Alarm Set At - High 120 Respirations Unlabored Respiratory Pattern Regular Nasal Symptoms None Breath Sounds Auscultated Anterior only All Lobes Breath Sounds Clear, Diminished Patient Participation in Treatment Cooperative Cough and Deep Breathe Done Cough None Oxygen Therapy Room air Tracheal Position Midline Abdomen Description Non-distended, Symmetric, Soft Abdomen Palpation Non-Tender Bowel Sounds All Quadrants Present Urinary Elimination Voiding, no difficulties Facial Movement Symmetric resting/crying All Extremity Description [place], Normal for ethnicity Skin Temperature Warm Temperature All Extremities Warm Skin Description [place], Normal for ethnicity Skin Integrity Pressure points intact Skin Turgor Elastic Mucous Membrane Color [place] Mucous Membrane Description Moist Sensory Perception Dre No impairment Moisture Dre Rarely moist Activity Dre Bedfast Mobility Dre Slightly limited Nutrition Dre Adequate Friction and Shear Dre Potential problem Dre Score 17 Hospital Acquired Pressure Injury Risk Low risk (score 15-18) Leg Bilateral Skin Abnormality Type: Abrasion Incision, Wound Dressing/Activity: Assessed Incision, Wound Dressing: Open to air Wound Exudate Amount: None Incision, Wound Surrounding Tissue: Normal Wound Status: No complications Head Skin Abnormality Type: Surgical incision Skin Abnormality Pattern: Linear Incision, Wound Dressing/Activity: Open to air Wound Edge: Approximated Incision, Wound Surrounding Tissue: Normal Wound Status: No complications Antecubital Left 20 gauge Peripheral IV Activity: Assessed Peripheral IV Dressing Condition: Clean, Dry, Intact Peripheral IV Dressing Activity: Transparent dressing Peripheral IV Line Status/Patency: Flushes easily, 10ml normal saline flush Peripheral IV Site Condition: No complications Forearm Right 01/01/2022 20 gauge Peripheral IV Activity: Assessed Peripheral IV Dressing Condition: Clean, Dry, Intact Peripheral IV Dressing Activity: Transparent dressing Peripheral IV Line Status/Patency: Flushes easily, 10ml normal saline flush Peripheral IV Site Condition: No complications Radial Artery Right Vascular Access Site Condition: No complications Vascular Access Distal Pulses: Palpable Neurological Language Able to speak clearly Neurological Symptoms Patient denies Gait Unable to assess Extremity Movement Equal Swallowing Difficulty None Characteristics of Communication Appropriate Characteristics of Speech Clear Facial Symmetry Symmetric Level of Consciousness Alert Aspiration Risk None FERNANDO Yes Left Pupil Description Regular, Round Right Pupil Description Regular, Round Left Pupil Reaction Brisk Right Pupil Reaction Brisk Pupil Size, Left 3 mm Pupil Size, Right 3 mm Left Upper Extremity Strength Strong Right Upper Extremity Strength Strong Left Upper Extremity Sensation Intact Right Upper Extremity Sensation Intact CN VII Facial Expression and Symmetry Facial movement symmetrical CN IX, X Swallowing, Gag Reflex Swallowing present Affect/Behavior Appropriate, Calm, Cooperative Orientation Oriented x 4 Orientation Assessment Oriented x 4 Activity Status ADL Awake, Repositions self, Resting Beds/Devices Hospital bed Activity Assistance Minimum assistance Standard Safety ID band on, Call device within reach, Bed in low position, Wheels locked, Upper/Half-Length side-rails up, Phone within reach, Safety level maintained High Risk Safety Room check performed Demonstrates Correct Call Light Use Yes heparin 8.7 unit(s)/kg/hr unit(s) Dextrose 5% Premix Diluent Dextrose 5% Premix Diluent mL 01/04/2022 19:25 EDT Temperature Oral 36.6 DegC Heart Rate Monitored 58 bpm LOW Respiratory Rate 16 br/min Systolic Blood Pressure NBP 122 mmHg Diastolic Blood Pressure NBP 64 mmHg Mean Arterial Pressure (NBP) 83 mmHg Reason For Taking VItal Signs Routine Oxygen Therapy Room air Oxygen Saturation 96 % Activity Status ADL Awake, Lights dimmed, Repositions self, Resting Beds/Devices Hospital bed Standard Safety ID band on, Call device within reach, Bed in low position, Wheels locked, Upper/Half-Length side-rails up, Phone within reach, personal items within reach, Safety level maintained, Non-Slip footwear High Risk Safety Non-Slip footwear, Room check performed Demonstrates Correct Call Light Use Yes 01/04/2022 19:00 EDT Bed Status CVSD 0212 A Ready 01/04/2022 17:18 EDT ABO/Rh Interp A POS ABSC Interp (Gel) NEG Crossmatch, Immediate Spin Compatible Crossmatch, Immediate Spin Compatible 01/04/2022 16:47 EDT Primary Pain Intensity 0 Pain Scale Type 0-10 Pain scale Heart Sounds ICU S1S2 Heart Rhythm Regular Radial Pulse, Left 2+ Normal Radial Pulse, Right 2+ Normal Edema Generalized None Respirations Unlabored Respiratory Pattern Regular Breath Sounds Auscultated Anterior and posterior All Lobes Breath Sounds Clear Tracheal Position Midline Abdomen Description Non-distended Abdomen Palpation Non-Tender Bowel Sounds All Quadrants Present Urinary Elimination Voiding, no difficulties Urine Description Medium amount Facial Movement Symmetric resting/crying Skin Symptoms Bruising Skin Temperature Warm Skin Description [place], Normal for ethnicity Skin Integrity Intact Skin Turgor Elastic Mucous Membrane Color [place] Mucous Membrane Description Moist Sensory Perception Dre No impairment Moisture Dre Rarely moist Activity Dre Bedfast Mobility Dre Slightly limited Nutrition Dre Probably inadequate Friction and Shear Dre Potential problem Dre Score 16 Hospital Acquired Pressure Injury Risk Low risk (score 15-18) Antecubital Left 20 gauge Peripheral IV Activity: Assessed Peripheral IV Dressing Condition: Clean, Dry, Intact Peripheral IV Site Condition: No complications Forearm Right 01/01/2022 20 gauge Peripheral IV Activity: Assessed Peripheral IV Dressing Condition: Clean, Dry, Intact Peripheral IV Site Condition: No complications Radial Artery Right Vascular Access Site Condition: No complications Neurological Language Able to speak clearly, Follows simple commands Neurological Symptoms Patient denies Gait Steady Extremity Movement Equal Swallowing Difficulty None Characteristics of Communication Appropriate Characteristics of Speech Clear Facial Symmetry Symmetric Level of Consciousness Alert Aspiration Risk None FERNANDO Yes Left Pupil Description Regular Right Pupil Description Regular Left Pupil Reaction Brisk Right Pupil Reaction Brisk Pupil Size, Left 3 mm Pupil Size, Right 3 mm Pupil Accommodation Left Pupil constriction Pupil Accommodation Right Pupil constriction Left Upper Extremity Strength Strong Right Upper Extremity Strength Strong Left Upper Extremity Sensation Intact Right Upper Extremity Sensation Intact CN VII Facial Expression and Symmetry Facial movement symmetrical CN IX, X Swallowing, Gag Reflex Swallowing present Violence Risk Confused No Violence Risk Irritable No Violence Risk Boisterous No Violence Risk Verbal Threats No Violence Risk Physical Threats No Violence Risk Attacking Objects No Violence Risk Predictor Score 0 Violence Risk Intervention None Violence Risk Current Interventions None Affect/Behavior Appropriate, Calm, Cooperative Orientation Oriented x 4 Activity Status ADL Awake, Repositions self, Resting, Sleeping, Watching TV Standard Safety ID band on, Allergy Band on, Call device within reach, Bed in low position, Wheels locked, Upper/Half-Length side-rails up, Phone within reach, Safety level maintained High Risk Safety Room check performed Demonstrates Correct Call Light Use Yes 01/04/2022 16:44 EDT RBC Product Ready RBC Ready for Pickup insulin lispro 6 unit(s) unit(s) 01/04/2022 16:29 EDT Blood Glucose, Capillary 219 mg/dL HI Blood Glucose Testing Reason Routine 01/04/2022 15:53 EDT Bed Bath Minimum assistance Oral Care Refused Skin Care Product Applied Skin moisturizer, CHG bath Linen Change Done 01/04/2022 15:17 EDT Temperature Oral 36.7 DegC Heart Rate Monitored 57 bpm LOW Respiratory Rate 18 br/min Systolic Blood Pressure NBP 143 mmHg HI Diastolic Blood Pressure NBP 54 mmHg LOW Mean Arterial Pressure (NBP) 85 mmHg Reason For Taking VItal Signs Routine Oxygen Therapy Room air Oxygen Saturation 92 % LOW Activity Status ADL Awake, Lights dimmed Beds/Devices Hospital bed Activity Assistance One assist Assistive Device None Standard Safety ID band on, Call device within reach, Bed in low position, Wheels locked, Upper/Half-Length side-rails up, Phone within reach, personal items within reach, Toileting device within reach, Safety level maintained High Risk Safety Room check performed Demonstrates Correct Call Light Use Yes 01/04/2022 14:56 EDT Cardiology Progress Note Progress Note (Modified) 01/04/2022 14:46 EDT Post Rehab Outcome Not Done: Not Appropriate at this Time (Not Done) Cardiac Rehab - Phase I Not Done (Not Done) 01/04/2022 13:32 EDT BMAT Existing Patient Condition/Safety No order for Strict Bedrest BMAT Level 1: Sit and Shake Sit, side bed/reach midline/shake hands BMAT Level 2: Stretch and Point Patient unable BMAT Mobility Level 2 01/04/2022 13:31 EDT CAM Mental Status Change & Fluctuation Not Done: See ICU flow (Not Done) CAM Inattention Not Done: See ICU flow (Not Done) CAM Disorganized Thinking Not Done: See ICU flow (Not Done) CAM Altered Level of Consciousness Not Done: See ICU flow (Not Done) Confusion Assessment Method Score Not Done: See ICU flow (Not Done) 01/04/2022 12:41 EDT Heart Rate Monitored 61 bpm Reason For Taking VItal Signs Routine Primary Pain Intensity 0 Primary Pain Nonverbal Response Nods No Pain Scale Type 0-10 Pain scale Monitor Alarms On and Limits Checked Nail Bed Color [place] Capillary Refill < 2 seconds Heart Sounds ICU S1S2 Heart Rhythm Regular Radial Pulse, Left 2+ Normal Radial Pulse, Right 2+ Normal Edema Generalized None Respirations Unlabored Respiratory Pattern Regular Nasal Symptoms None Breath Sounds Auscultated Anterior and posterior All Lobes Breath Sounds Clear, Diminished Cough and Deep Breathe Done Cough None Oxygen Therapy Room air Tracheal Position Midline Abdomen Description Non-distended Abdomen Palpation Non-Tender Bowel Continence LTC Always continent Bowel Sounds All Quadrants Present Urinary Elimination Voiding, no difficulties Urine Color Yellow Urine Description Medium amount Facial Movement Symmetric resting/crying All Extremity Description [place], Normal for ethnicity Skin Temperature Warm Temperature All Extremities Warm Skin Description [place], Normal for ethnicity Skin Integrity Pressure points intact Skin Turgor Non-Elastic Mucous Membrane Color [place] Mucous Membrane Description Moist Leg Bilateral Skin Abnormality Type: Abrasion Wound Status: Unchanged Head Skin Abnormality Type: Surgical incision Wound Status: Unchanged Antecubital Left 20 gauge Peripheral IV Activity: Assessed Peripheral IV Dressing Condition: Clean, Dry, Intact Peripheral IV Dressing Activity: Transparent dressing Peripheral IV Line Status/Patency: Flushes easily, 3ml normal saline flush Peripheral IV Site Condition: No complications Peripheral IV Equipment: PRN Adaptor Forearm Right 01/01/2022 20 gauge Peripheral IV Activity: Assessed Peripheral IV Dressing Condition: Clean, Dry, Intact Peripheral IV Dressing Activity: Transparent dressing Peripheral IV Line Status/Patency: Continuous infusion Peripheral IV Site Condition: No complications Peripheral IV Equipment: IV Pump Neurological Language Able to speak clearly Neurological Symptoms Patient denies Gait Unable to assess Extremity Movement Equal Swallowing Difficulty None Characteristics of Communication Appropriate Characteristics of Speech Clear Facial Symmetry Symmetric Level of Consciousness Alert Aspiration Risk None FERNANDO Yes Left Pupil Description Regular, Round Right Pupil Description Regular, Round Left Pupil Reaction Sluggish Right Pupil Reaction Sluggish Pupil Size, Left 3 mm Pupil Size, Right 3 mm Left Upper Extremity Strength Strong Right Upper Extremity Strength Strong Left Upper Extremity Sensation Intact Right Upper Extremity Sensation Intact CN VII Facial Expression and Symmetry Facial movement symmetrical CN IX, X Swallowing, Gag Reflex Swallowing present CAM Mental Status Change & Fluctuation No CAM Inattention No CAM Disorganized Thinking No CAM Altered Level of Consciousness No Confusion Assessment Method Score Negative Affect/Behavior Appropriate, Calm, Cooperative Orientation Oriented x 4 Activity Status ADL Repositions self, Resting Assistive Device None Standard Safety ID band on High Risk Safety Room check performed Demonstrates Correct Call Light Use Yes heparin 8.7 unit(s)/kg/hr unit(s) insulin lispro 2 unit(s) unit(s) metFORMIN 500 mg mg Dextrose 5% Premix Diluent Dextrose 5% Premix Diluent mL Eating Difficulties None 01/04/2022 12:30 EDT Heart Rate Monitored 58 bpm LOW Reason For Taking VItal Signs Routine Primary Pain Intensity 0 Primary Pain Nonverbal Response Nods No Pain Scale Type 0-10 Pain scale Monitor Alarms On and Limits Checked Heart Sounds ICU S1S2 Heart Rhythm Regular Oxygen Therapy Room air Activity Status ADL Repositions self, Resting Assistive Device None Standard Safety ID band on High Risk Safety Room check performed Demonstrates Correct Call Light Use Yes 01/04/2022 11:13 EDT Discharge To, Anticipated Skilled facility Transition Planning Note Transition Planning Ongoing Assessment 01/04/2022 11:06 EDT Blood Glucose, Capillary 148 mg/dL HI Blood Glucose Testing Reason Routine Temperature Oral 36.5 DegC Heart Rate Monitored 58 bpm LOW Respiratory Rate 18 br/min Systolic Blood Pressure NBP 96 mmHg Diastolic Blood Pressure NBP 35 mmHg Mean Arterial Pressure (NBP) 53 mmHg Reason For Taking VItal Signs Routine Oxygen Therapy Room air Oxygen Saturation 93 % Bed Bath Refused Linen Change Patient refused 01/04/2022 10:56 EDT Heart Rate Monitored 60 bpm Cardiac Rhythm Sinus rhythm Monitoring Lead III, V1/MCL1 CT Interval 0.20 second(s) QRS Duration 0.09 second(s) QT Interval 0.45 second(s) QTc Interval 0.44 second(s) Alarms On and Functional Yes Heart Rate Alarm Set At - Low 45 Heart Rate Alarm Set At - High 120 01/04/2022 10:42 EDT Endocrinology Progress Note Progress Note 01/04/2022 9:20 EDT Radial Artery Right Vascular Access Site Condition: No complications Vascular Access Distal Pulses: Palpable 01/04/2022 8:56 EDT Apical Heart Rate 68 bpm allopurinol 300 mg mg amLODIPine 10 mg mg aspirin 81 mg mg citalopram 10 mg mg insulin glargine 25 unit(s) unit(s) insulin lispro 4 unit(s) unit(s) magnesium sulfate 2 gram(s) gram(s) metoprolol 50 mg mg mupirocin topical 1 femi femi potassium chloride 40 mEq mEq predniSONE 10 mg mg vitamin A 21473 unit(s) unit(s) 01/04/2022 8:39 EDT Heart Rate Monitored 59 bpm LOW Reason For Taking VItal Signs Routine Primary Pain Intensity 0 Primary Pain Nonverbal Response Nods No Pain Scale Type 0-10 Pain scale Monitor Alarms On and Limits Checked Nail Bed Color [place] Capill (more content not included)... [id number]iology Progress note Date of Service 01/04/22 Chief Complaint Chest pain, NSTEMI Subjective Patient seen and examined at bedside. No acute overnight events. Objective Vitals and Measurements T: 36.5 C (Oral) TMIN: 36.2 C (Oral) TMAX: 36.5 C (Oral) HR: 61(Monitored) RR: 18 BP: 96/35 SpO2: 93% Intake and Output 7AM Yesterday to 7AM Today Intake and Output (Last 24 hours) Intake Oral Intake 50.00 Supplement Intake 90.00 Output Urine Voided 650.00 Total Summary Total Intake 140.00 Total Output 650.00 Fluid Balance -510.00 Physical Exam GENERAL: Pt is comfortable in bed. PSYCH: Alert and oriented HEENT: Sclera clear, trachea midline NEURO: No focal neurologic deficits ENDO: Thyroid is non-palpable NECK: No JVD or Carotid Bruit CVS: S1 & S2 audible, Sinus bradycardia, No Murmurs LUNG: Adequate air entry. GI: + BS, Abdomen is Soft EXTREMITIES: Bilateral below the knee amputations, no edema, palpable bilateral popliteal pulses, bilateral femoral pulses +2 SKIN: Warm & Dry Weight Current Weight Dosing Weight: 81.5 kg (01/03/22) Current Weight: 81.5 kg (01/03/22) Dosing Weight: 81.5 kg (01/03/22) Medications Medications (22) Active Scheduled: (17) allopurinol 300 mg tablet 300 mg 1 tab(s), Oral, qDayPC amLODIPine 5 mg tablet 5 mg 1 tab(s), Oral, qDay aspirin 81 mg Chewable 81 mg 1 tab(s), Oral, Daily atorvastatin 40 mg tablet 40 mg 1 tab(s), Oral, qDay citalopram 10 mg tablet 10 mg 1 tab(s), Oral, qAM insulin glargine 25 unit(s) 0.25 mL, Subcutaneous (INT), acBreakfast insulin lispro 100 units/mL Soln (3 mL) Give 2-18 units/dose, Subcutaneous, achs isosorbide mononitrate 30 mg ER tablet 30 mg 1 tab(s), Oral, qAM levothyroxine 50 mcg tablet 50 mcg 1 tab(s), Oral, qAM metformin 500 mg ER tablet 500 mg 1 tab(s), Oral, BID metoprolol succinate 50 mg ER tablet 50 mg 1 tab(s), Oral, qDay mupirocin 2% Ointment 22 Gram(s) tube 1 femi, Nostril, each, BID No metformin for 48 hrs post contrast 1 EA, Miscellaneous, Unscheduled No prasugrel (Effient) 7 days before surgery 1 EA, Miscellaneous, Daily NO vitamin E, clopidogrel (Plavix) 5 days before surgery 1 EA, Miscellaneous, Daily predniSONE 10 mg tablet 10 mg 1 tab(s), Oral, qDay vitamin A 10,000 units capsule 10,000 unit(s) 1 cap(s), Oral, qDay Continuous: (1) heparin 25,000 unit(s) + Dextrose 5% Premix Diluent 250 mL 25,000 unit(s), Intravenous, 10 mL/hr PRN: (4) albuterol - ipratropium 2.5 mg-0.5 mg/3 mL Inhal Sally UD 3 mL, Inhalation, q4hRT heparin 5,000 units/mL (1 mL) vial 4,000 unit(s) 0.8 mL, IV Push, q6h labetalol 5 mg/mL (4 mL) INJ 10 mg 2 mL, IV Push, q20min melatonin 3 mg tablet 3 mg 1 tab(s), Oral, qHS Lab Results 01/04 04:24 WBC: 11.8 H Hgb: 12.4 L Hct: 37.7 L Platelet: 278 Glucose Level: 187 H Sodium Level: 138 Potassium Level: 3.9 BUN: 27.0 H Creatinine Lvl (s): 1.63 H 01/03 03:44 WBC: 10.7 Hgb: 13.0 Hct: 38.9 L Platelet: 302 Neutrophil %: 71.9 Glucose Level: 157 H Sodium Level: 137 Potassium Level: 3.9 BUN: 27.0 H Creatinine Lvl (s): 1.52 H Imaging Results and Diagnostics CT Angiography Neck w/ Contrast Result Date: January 03, 2022 Verified By: BRIANA SAMAYOA MD CLINICAL STATEMENT: IMPRESSION: 1. 63% right ICA stenosis.2. 51% left ICA stenosis. XR Chest 1 View Result Date: December 31, 2021 Verified By: SJ MANTILLA DO CLINICAL STATEMENT: IMPRESSION: 1. Diffuse interstitial opacities/interstitial prominence may reflect achronic etiology, however an atypical infectious process is difficult toexclude. Correlate clinically.2. Mild right basilar subsegmental atelectasis. EKG No qualifying data available. Assessment/Plan 1. CAD (coronary artery disease) EF 45-50% 2. NSTEMI (non-ST elevated myocardial infarction) 3. QUIN (acute kidney injury) 4. CKD (chronic kidney disease), stage III 5. AF (paroxysmal atrial fibrillation) 6. Diabetes Hgb A1c 8.4% 7. HTN (hypertension) 8. HLD (hyperlipidemia) 9. Hypothyroid 10. 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 PVD (peripheral vascular disease) s/p bilateral BKA 2019 12. 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 Left main: The vessel is very short. 2. LAD: Ostial lesion: There is a 90% stenosis. 3. Ramus intermedius: The vessel is small-medium. Proximal vessel lesion: There is a 50% stenosis. 4. Left circumflex: Ostial lesion: There is a 40% stenosis. Collateral flow from the right coronaryposterolateral extension to the distal left circumflex. 5. Right coronary: Proximal vessel lesion: There is a 50% stenosis TTE Summary: 1. Left ventricle: The cavity size is normal. Wall thickness is severely increased. Concentric LeftVentricular Hypertrophy Systolic function is mildly reduced. The estimated ejection fraction is 45-50%. There is mild diffuse hypokinesis. Possible mild hypokinesis of the mid-apical inferolateral and apical myocardium. Grade II diastolicdysfunction. 2. Ventricular septum: Thickness is severely increased. 3. Mitral valve: The annulus is mildly calcified. The leaflets are mildly thickened. There is mild regurgitation. 4. Left atrium: The atrium is moderately dilated. Plan -Creatinine increased from 1.53-1.[address] neck which is showing bilateral carotid stenosis, will hold metformin for now, monitor kidney function closely and avoid nephrotoxic drugs -CTS on board for revascularization, work up ongoing>>no date planned yet -Continue ASA/Statin/BB/Imdur/Norvasc -Continue heparin drip for AC for Afib (high CHADVASC score) -Endo on board for DM and hypothyroidism management, appreciate recommendations -Nephrology on board for QUIN, Cr improving, cleared for CABG>>continue to avoid nephrotoxic drugs -Monitor hemodynamics closely Time Spent 35 min Digitally Signed by CELIO CLAROS MD on 01/04/2022 02:59 PM [id number] Cardiology Progress note Date of Service 01/04/22 Chief Complaint Chest pain, NSTEMI Subjective Patient seen and examined at bedside. No acute overnight events. Objective Vitals and Measurements T: 36.5 C (Oral) TMIN: 36.2 C (Oral) TMAX: 36.5 C (Oral) HR: 61(Monitored) RR: 18 BP: 96/35 SpO2: 93% Intake and Output 7AM Yesterday to 7AM Today Intake and Output (Last 24 hours) Intake Oral Intake 50.00 Supplement Intake 90.00 Output Urine Voided 650.00 Total Summary Total Intake 140.00 Total Output 650.00 Fluid Balance -510.00 Physical Exam GENERAL: Pt is comfortable in bed. PSYCH: Alert and oriented HEENT: Sclera clear, trachea midline NEURO: No focal neurologic deficits ENDO: Thyroid is non-palpable NECK: No JVD or Carotid Bruit CVS: S1 & S2 audible, Sinus bradycardia, No Murmurs LUNG: Adequate air entry. GI: + BS, Abdomen is Soft EXTREMITIES: Bilateral below the knee amputations, no edema, palpable bilateral popliteal pulses, bilateral femoral pulses +2 SKIN: Warm & Dry Weight Current Weight Dosing Weight: 81.5 kg (01/03/22) Current Weight: 81.5 kg (01/03/22) Dosing Weight: 81.5 kg (01/03/22) Medications Medications (22) Active Scheduled: (17) allopurinol 300 mg tablet 300 mg 1 tab(s), Oral, qDayPC amLODIPine 5 mg tablet 5 mg 1 tab(s), Oral, qDay aspirin 81 mg Chewable 81 mg 1 tab(s), Oral, Daily atorvastatin 40 mg tablet 40 mg 1 tab(s), Oral, qDay citalopram 10 mg tablet 10 mg 1 tab(s), Oral, qAM insulin glargine 25 unit(s) 0.25 mL, Subcutaneous (INT), acBreakfast insulin lispro 100 units/mL Soln (3 mL) Give 2-18 units/dose, Subcutaneous, achs isosorbide mononitrate 30 mg ER tablet 30 mg 1 tab(s), Oral, qAM levothyroxine 50 mcg tablet 50 mcg 1 tab(s), Oral, qAM metformin 500 mg ER tablet 500 mg 1 tab(s), Oral, BID metoprolol succinate 50 mg ER tablet 50 mg 1 tab(s), Oral, qDay mupirocin 2% Ointment 22 Gram(s) tube 1 femi, Nostril, each, BID No metformin for 48 hrs post contrast 1 EA, Miscellaneous, Unscheduled No prasugrel (Effient) 7 days before surgery 1 EA, Miscellaneous, Daily NO vitamin E, clopidogrel (Plavix) 5 days before surgery 1 EA, Miscellaneous, Daily predniSONE 10 mg tablet 10 mg 1 tab(s), Oral, qDay vitamin A 10,000 units capsule 10,000 unit(s) 1 cap(s), Oral, qDay Continuous: (1) heparin 25,000 unit(s) + Dextrose 5% Premix Diluent 250 mL 25,000 unit(s), Intravenous, 10 mL/hr PRN: (4) albuterol - ipratropium 2.5 mg-0.5 mg/3 mL Inhal Sally UD 3 mL, Inhalation, q4hRT heparin 5,000 units/mL (1 mL) vial 4,000 unit(s) 0.8 mL, IV Push, q6h labetalol 5 mg/mL (4 mL) INJ 10 mg 2 mL, IV Push, q20min melatonin 3 mg tablet 3 mg 1 tab(s), Oral, qHS Lab Results 01/04 04:24 WBC: 11.8 H Hgb: 12.4 L Hct: 37.7 L Platelet: 278 Glucose Level: 187 H Sodium Level: 138 Potassium Level: 3.9 BUN: 27.0 H Creatinine Lvl (s): 1.63 H 01/03 03:44 WBC: 10.7 Hgb: 13.0 Hct: 38.9 L Platelet: 302 Neutrophil %: 71.9 Glucose Level: 157 H Sodium Level: 137 Potassium Level: 3.9 BUN: 27.0 H Creatinine Lvl (s): 1.52 H Imaging Results and Diagnostics CT Angiography Neck w/ Contrast Result Date: January 03, 2022 Verified By: BRIANA SAMAYOA MD CLINICAL STATEMENT: IMPRESSION: 1. 63% right ICA stenosis.2. 51% left ICA stenosis. XR Chest 1 View Result Date: December 31, 2021 Verified By: SJ MANTILLA DO CLINICAL STATEMENT: IMPRESSION: 1. Diffuse interstitial opacities/interstitial prominence may reflect achronic etiology, however an atypical infectious process is difficult toexclude. Correlate clinically.2. Mild right basilar subsegmental atelectasis. EKG No qualifying data available. Assessment/Plan 1. CAD (coronary artery disease) EF 45-50% 2. NSTEMI (non-ST elevated myocardial infarction) 3. QUIN (acute kidney injury) 4. CKD (chronic kidney disease), stage III 5. AF (paroxysmal atrial fibrillation) 6. Diabetes Hgb A1c 8.4% 7. HTN (hypertension) 8. HLD (hyperlipidemia) 9. Hypothyroid 10. 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 PVD (peripheral vascular disease) s/p bilateral BKA 2019 12. 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 Left main: The vessel is very short. 2. LAD: Ostial lesion: There is a 90% stenosis. 3. Ramus intermedius: The vessel is small-medium. Proximal vessel lesion: There is a 50% stenosis. 4. Left circumflex: Ostial lesion: There is a 40% stenosis. Collateral flow from the right coronaryposterolateral extension to the distal left circumflex. 5. Right coronary: Proximal vessel lesion: There is a 50% stenosis TTE Summary: 1. Left ventricle: The cavity size is normal. Wall thickness is severely increased. Concentric LeftVentricular Hypertrophy Systolic function is mildly reduced. The estimated ejection fraction is 45-50%. There is mild diffuse hypokinesis. Possible mild hypokinesis of the mid-apical inferolateral and apical myocardium. Grade II diastolicdysfunction. 2. Ventricular septum: Thickness is severely increased. 3. Mitral valve: The annulus is mildly calcified. The leaflets are mildly thickened. There is mild regurgitation. 4. Left atrium: The atrium is moderately dilated. Plan -Creatinine increased from 1.53-1.[address] neck which is showing bilateral carotid stenosis, will hold metformin for now, monitor kidney function closely and avoid nephrotoxic drugs -CTS on board for revascularization, work up ongoing>>no date planned yet -Continue ASA/Statin/BB/Imdur/Norvasc -Continue heparin drip for AC for Afib (high CHADVASC score) -Endo on board for DM and hypothyroidism management, appreciate recommendations -Nephrology on board for QUIN, Cr improving, cleared for CABG>>continue to avoid nephrotoxic drugs -Monitor hemodynamics closely Time Spent 35 min Digitally Signed by CELIO CLAROS MD on 01/04/2022 02:59 PM [id number] Progress note Date of Service 01/04/22 Chief Complaint DM2; pre-op control Subjective Chart reviewed. Overnight events and plan of care d/w patient. Patient denies new complaints. Appetite good later in the day. Not hungry for breakfast this AM Objective Vitals and Measurements T: 36.4 C (Oral) TMIN: 36.2 C (Oral) TMAX: 36.5 C (Oral) HR: 68(Apical) RR: 18 BP: 150/69 SpO2: 92% HT: 152 cm WT: 81.5 kg BMI: 35.28 Intake and Output 7AM Yesterday to 7AM Today Intake and Output (Last 24 hours) Intake Oral Intake 430.00 Supplement Intake 90.00 Output Urine Voided 1050.00 Urine Count 1.00 Total Summary Total Intake 520.00 Total Output 1050.00 Fluid Balance -530.00 Physical Exam Alert, lying in bed, no acute distress Respirations even and unlabored Answers questions appropriately. Mood and affect normal. Weight Current Weight Dosing Weight: 81.5 kg (01/03/22) Current Weight: 81.5 kg (01/03/22) Dosing Weight: 81.5 kg (01/03/22) Medications Medications (22) Active Scheduled: (17) allopurinol 300 mg tablet 300 mg 1 tab(s), Oral, qDayPC amLODIPine 10 mg tablet 10 mg 1 tab(s), Oral, qDay aspirin 81 mg Chewable 81 mg 1 tab(s), Oral, Daily atorvastatin 40 mg tablet 40 mg 1 tab(s), Oral, qDay citalopram 10 mg tablet 10 mg 1 tab(s), Oral, qAM insulin glargine 25 unit(s) 0.25 mL, Subcutaneous (INT), acBreakfast insulin lispro 100 units/mL Soln (3 mL) Give 2-18 units/dose, Subcutaneous, achs isosorbide mononitrate 30 mg ER tablet 30 mg 1 tab(s), Oral, qAM levothyroxine 50 mcg tablet 50 mcg 1 tab(s), Oral, qAM metformin 500 mg ER tablet 500 mg 1 tab(s), Oral, BID metoprolol succinate 50 mg ER tablet 50 mg 1 tab(s), Oral, qDay mupirocin 2% Ointment 22 Gram(s) tube 1 femi, Nostril, each, BID No metformin for 48 hrs post contrast 1 EA, Miscellaneous, Unscheduled No prasugrel (Effient) 7 days before surgery 1 EA, Miscellaneous, Daily NO vitamin E, clopidogrel (Plavix) 5 days before surgery 1 EA, Miscellaneous, Daily predniSONE 10 mg tablet 10 mg 1 tab(s), Oral, qDay vitamin A 10,000 units capsule 10,000 unit(s) 1 cap(s), Oral, qDay Continuous: (1) heparin 25,000 unit(s) + Dextrose 5% Premix Diluent 250 mL 25,000 unit(s), Intravenous, 10 mL/hr PRN: (4) albuterol - ipratropium 2.5 mg-0.5 mg/3 mL Inhal Sally UD 3 mL, Inhalation, q4hRT heparin 5,000 units/mL (1 mL) vial 4,000 unit(s) 0.8 mL, IV Push, q6h labetalol 5 mg/mL (4 mL) INJ 10 mg 2 mL, IV Push, q20min melatonin 3 mg tablet 3 mg 1 tab(s), Oral, qHS Lab Results 01/04 04:24 WBC: 11.8 H Hgb: 12.4 L Hct: 37.7 L Platelet: 278 Glucose Level: 187 H Sodium Level: 138 Potassium Level: 3.9 BUN: 27.0 H Creatinine Lvl (s): 1.63 H 01/03 03:44 WBC: 10.7 Hgb: 13.0 Hct: 38.9 L Platelet: 302 Neutrophil %: 71.9 Glucose Level: 157 H Sodium Level: 137 Potassium Level: 3.9 BUN: 27.0 H Creatinine Lvl (s): 1.52 H EKG No qualifying data available. Assessment/Plan 1. CAD (coronary artery disease) EF 45-50% 2. NSTEMI (non-ST elevated myocardial infarction) 3. QUIN (acute kidney injury) 4. CKD (chronic kidney disease), stage III 5. AF (paroxysmal atrial fibrillation) 6. Diabetes Hgb A1c 8.4% 7. HTN (hypertension) 8. HLD (hyperlipidemia) 9. Hypothyroid 10. 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 PVD (peripheral vascular disease) s/p bilateral BKA 2019 12. 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 Weinstein on 12/24/2021-on prednisone. He resides at [facility] past 3 months. He presented to [facility] on December 30, 2021 due to a sudden onset of alteredmental status and shortness of breath. At [facility], he was noted to have acute kidney injury with creatinine 2.3 and elevated troponin at 3577. EKG revealed normal sinus rhythm without evidenceof ST elevation or depression. Negative for COVID-19 at [facility]. He was transferred to [facility] for further evaluation. Echocardiogram on December 30, 2021 revealed an EF of 45 to 50% and mild MR. Cardiac catheterization completed showing multivessel disease.Cardiothoracic surgery has been consulted for possible surgical myocardial vascularization. Endocrine consult placed by CTS for diabetic management. Longstanding type II diabetic with A1c of 8.4%. Currently residing at [facility] with orders in place for Humalog 32 units with lunch and supper, Toujeo 70 units nightly, sliding scale 3 to 12 units with meals and at bedtime. History of CKD. GFR 44 today. QUIN initially on presentation to [facility]. Nephrology is following here this admission. D/w patient risk for labile BG related to altered renal function. Encouraged protein-based snack at bedtime. History of hyperlipidemia noted. Total cholesterol 129, triglycerides 152, HDL 24, LDL is 75. Continue on Lipitor 40 mg daily inpatient. History of hypothyroidism on levothyroxine 50 mcg daily. Continue on the same. TSH within range 3.091. On chronic prednisone 10 mg daily for giant cell arteritis. Continue on the same inpatient. Last 24 Hours: Current orders are in place for Lantus 25 units qam , 2-18 sliding scale with meals and at bedtime and metformin 500 mg twice daily. Blood glucose trends reviewed, fasting this morning 180. Trends fairly stable. Monitor response to additional of basal insulin IP and metformin which is new for him. Consider use of SGLT2 postop. GLP analog should also be added in the outpatient setting. Will continue to follow intermittently as needed while inpatient. Time Spent Total time spent 25 minutes Digitally Signed by CASPER MURRY on 01/04/2022 04:05 PM [id number] Note ORIGINAL EXAMINATION: CTA OF THE NECK 01/03/2022 10:17 pm TECHNIQUE: CTA of the neck was performed with the administration of intravenous contrast. Multiplanar reformatted images are provided for review. MIP images are provided for review. Stenosis of the internal carotid arteries measured using NASCET criteria. Automated exposure control, iterative reconstruction, and/or weight based adjustment of the mA/kV was utilized to reduce the radiation dose to as low as reasonably achievable. COMPARISON: None. HISTORY: ORDERING SYSTEM PROVIDED HISTORY: Reason for Exam: PT STATES, NO PAIN OR DIZZINESS carotid stenosis FINDINGS: There is atherosclerotic disease of the aortic arch. No significant stenosis at the origins of the innominate artery, bilateral common carotid arteries, bilateral subclavian arteries. There is moderate stenosis at the origin of the right vertebral artery and mild stenosis at the origin the left vertebral artery. There is calcified and noncalcified atherosclerotic disease at the right carotid bifurcation which results in 63% ICA stenosis. The right external carotid artery is patent. There is predominantly calcified atherosclerotic disease at the left carotid bifurcation which results in 51% ICA stenosis. The left external carotid artery is patent. The vertebral arteries are patent with left dominance. The right vertebral artery becomes diminutive after the origin of PICA. The There is trace nonspecific left mastoid fluid. Multilevel degenerative changes are identified in the spine. IMPRESSION: 1. 63% right ICA stenosis. 2. 51% left ICA stenosis. Interpreted by: Briana Samayoa MD Preliminary Report By: Briana Samayoa MD Electronically signed By Briana Samayoa MD Dictated Date: 01/04/2022 9:31:12 AM Prelim Date: 01/04/2022 9:39:34 AM Sign Date: 01/04/2022 9:39:34 AM Ordering Provider: [facility]07-18-2022 Cardiology Progress note Date of Service 01/03/22 Chief Complaint Chest pain, NSTEMI Subjective Patient seen and examined at bedside. No acute overnight events. Objective Vitals and Measurements T: 36.3 C (Oral) TMIN: 36.2 C (Oral) TMAX: 36.8 C (Oral) HR: 54(Monitored) RR: 18 BP: 112/52 SpO2: 91% HT: 152 cm WT: 81.5 kg BMI: 35.28 Intake and Output 7AM Yesterday to 7AM Today Intake and Output (Last 24 hours) Intake Oral Intake 780.00 Supplement Intake 0.00 Output Urine Voided 1300.00 Stool Count 1.00 Urine Count 1.00 Emesis Count 0.00 Total Summary Total Intake 780.00 Total Output 1300.00 Fluid Balance -520.00 Physical Exam GENERAL: Pt is comfortable in bed. PSYCH: Alert and oriented HEENT: Sclera clear, trachea midline NEURO: No focal neurologic deficits ENDO: Thyroid is non-palpable NECK: No JVD or Carotid Bruit CVS: S1 & S2 audible, Sinus bradycardia, No Murmurs LUNG: Adequate air entry. GI: + BS, Abdomen is Soft EXTREMITIES: Bilateral below the knee amputations, no edema, palpable bilateral popliteal pulses, bilateral femoral pulses +2 SKIN: Warm & Dry Weight Current Weight Dosing Weight: 81.5 kg (01/03/22) Current Weight: 81.5 kg (01/03/22) Dosing Weight: 81.5 kg (01/03/22) Medications Medications (22) Active Scheduled: (17) allopurinol 300 mg tablet 300 mg 1 tab(s), Oral, qDayPC amLODIPine 5 mg tablet 5 mg 1 tab(s), Oral, qDay aspirin 81 mg Chewable 81 mg 1 tab(s), Oral, Daily atorvastatin 40 mg tablet 40 mg 1 tab(s), Oral, qDay citalopram 10 mg tablet 10 mg 1 tab(s), Oral, qAM insulin glargine 25 unit(s) 0.25 mL, Subcutaneous (INT), acBreakfast insulin lispro 100 units/mL Soln (3 mL) Give 2-18 units/dose, Subcutaneous, achs isosorbide mononitrate 30 mg ER tablet 30 mg 1 tab(s), Oral, qAM levothyroxine 50 mcg tablet 50 mcg 1 tab(s), Oral, qAM metformin 500 mg ER tablet 500 mg 1 tab(s), Oral, BID metoprolol succinate 50 mg ER tablet 50 mg 1 tab(s), Oral, qDay mupirocin 2% Ointment 22 Gram(s) tube 1 femi, Nostril, each, BID No metformin for 48 hrs post contrast 1 EA, Miscellaneous, Unscheduled No prasugrel (Effient) 7 days before surgery 1 EA, Miscellaneous, Daily NO vitamin E, clopidogrel (Plavix) 5 days before surgery 1 EA, Miscellaneous, Daily predniSONE 10 mg tablet 10 mg 1 tab(s), Oral, qDay vitamin A 10,000 units capsule 10,000 unit(s) 1 cap(s), Oral, qDay Continuous: (1) heparin 25,000 unit(s) + Dextrose 5% Premix Diluent 250 mL 25,000 unit(s), Intravenous, 10 mL/hr PRN: (4) albuterol - ipratropium 2.5 mg-0.5 mg/3 mL Inhal Sally UD 3 mL, Inhalation, q4hRT heparin 5,000 units/mL (1 mL) vial 4,000 unit(s) 0.8 mL, IV Push, q6h labetalol 5 mg/mL (4 mL) INJ 10 mg 2 mL, IV Push, q20min melatonin 3 mg tablet 3 mg 1 tab(s), Oral, qHS Lab Results 01/03 03:44 WBC: 10.7 Hgb: 13.0 Hct: 38.9 L Platelet: 302 Neutrophil %: 71.9 Glucose Level: 157 H Sodium Level: 137 Potassium Level: 3.9 BUN: 27.0 H Creatinine Lvl (s): 1.52 H Imaging Results and Diagnostics XR Chest 1 View Result Date: December 31, 2021 Verified By: SJ MANTILLA DO CLINICAL STATEMENT: IMPRESSION: 1. Diffuse interstitial opacities/interstitial prominence may reflect achronic etiology, however an atypical infectious process is difficult toexclude. Correlate clinically.2. Mild right basilar subsegmental atelectasis. EKG No qualifying data available. Assessment/Plan 1. CAD (coronary artery disease) EF 45-50% 2. NSTEMI (non-ST elevated myocardial infarction) 3. QUIN (acute kidney injury) 4. CKD (chronic kidney disease), stage III 5. AF (paroxysmal atrial fibrillation) 6. Diabetes Hgb A1c 8.4% 7. HTN (hypertension) 8. HLD (hyperlipidemia) 9. Hypothyroid 10. 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 PVD (peripheral vascular disease) s/p bilateral BKA 2019 12. 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 Left main: The vessel is very short. 2. LAD: Ostial lesion: There is a 90% stenosis. 3. Ramus intermedius: The vessel is small-medium. Proximal vessel lesion: There is a 50% stenosis. 4. Left circumflex: Ostial lesion: There is a 40% stenosis. Collateral flow from the right coronaryposterolateral extension to the distal left circumflex. 5. Right coronary: Proximal vessel lesion: There is a 50% stenosis TTE Summary: 1. Left ventricle: The cavity size is normal. Wall thickness is severely increased. Concentric LeftVentricular Hypertrophy Systolic function is mildly reduced. The estimated ejection fraction is 45-50%. There is mild diffuse hypokinesis. Possible mild hypokinesis of the mid-apical inferolateral and apical myocardium. Grade II diastolicdysfunction. 2. Ventricular septum: Thickness is severely increased. 3. Mitral valve: The annulus is mildly calcified. The leaflets are mildly thickened. There is mild regurgitation. 4. Left atrium: The atrium is moderately dilated. Plan -CTS on board for revascularization, work up ongoing -Continue ASA/Statin/BB/Imdur/Norvasc -Continue heparin drip for AC for Afib (high CHADVASC score) -Endo on board for DM and hypothyroidism management, appreciate recommendations -Nephrology on board for QUIN, Cr improving, cleared for CABG>>continue to avoid nephrotoxic drugs -Monitor hemodynamics closely Time Spent 35 mins Digitally Signed by CELIO CLAROS MD on 01/03/2022 06:35 PM [id number] Note ORIGINAL EXAMINATION: CTA OF THE NECK 01/03/2022 10:17 pm TECHNIQUE: CTA of the neck was performed with the administration of intravenous contrast. Multiplanar reformatted images are provided for review. MIP images are provided for review. Stenosis of the internal carotid arteries measured using NASCET criteria. Automated exposure control, iterative reconstruction, and/or weight based adjustment of the mA/kV was utilized to reduce the radiation dose to as low as reasonably achievable. COMPARISON: None. HISTORY: ORDERING SYSTEM PROVIDED HISTORY: Reason for Exam: PT STATES, NO PAIN OR DIZZINESS carotid stenosis FINDINGS: There is atherosclerotic disease of the aortic arch. No significant stenosis at the origins of the innominate artery, bilateral common carotid arteries, bilateral subclavian arteries. There is moderate stenosis at the origin of the right vertebral artery and mild stenosis at the origin the left vertebral artery. There is calcified and noncalcified atherosclerotic disease at the right carotid bifurcation which results in 63% ICA stenosis. The right external carotid artery is patent. There is predominantly calcified atherosclerotic disease at the left carotid bifurcation which results in 51% ICA stenosis. The left external carotid artery is patent. The vertebral arteries are patent with left dominance. The right vertebral artery becomes diminutive after the origin of PICA. The There is trace nonspecific left mastoid fluid. Multilevel degenerative changes are identified in the spine. IMPRESSION: 1. 63% right ICA stenosis. 2. 51% left ICA stenosis. Interpreted by: Briana Samayoa MD Preliminary Report By: Briana Samayoa MD Electronically signed By Briana Samayoa MD Dictated Date: 01/04/2022 9:31:12 AM Prelim Date: 01/04/2022 9:39:34 AM Sign Date: 01/04/2022 9:39:34 AM Ordering Provider: [facility]07-18-2022 Nurse Progress note Called CT, they said patient okay to come to CT with contrast after having metformin this AM 01/03/22. Pharmacy said to check with prescriber. Dr. Claros said patient okay to go to CT with contrast after taking metformin this AM 01/03/22. Digitally Signed by Macy Bolanos RN on 01/03/2022 04:45 PM [id number] Cardiology Progress note Date of Service 01/03/22 Chief Complaint Chest pain, NSTEMI Subjective Patient seen and examined at bedside. No acute overnight events. Objective Vitals and Measurements T: 36.3 C (Oral) TMIN: 36.2 C (Oral) TMAX: 36.8 C (Oral) HR: 54(Monitored) RR: 18 BP: 112/52 SpO2:91% HT: 152 cm WT: 81.5 kg BMI: 35.28 Intake and Output 7AM Yesterday to 7AM Today Intake and Output (Last 24 hours) Intake Oral Intake 780.00 Supplement Intake 0.00 Output Urine Voided 1300.00 Stool Count 1.00 Urine Count 1.00 Emesis Count 0.00 Total Summary Total Intake 780.00 Total Output 1300.00 Fluid Balance -520.00 Physical Exam GENERAL: Pt is comfortable in bed. PSYCH: Alert and oriented HEENT: Sclera clear, trachea midline NEURO: No focal neurologic deficits ENDO: Thyroid is non-palpable NECK: No JVD or Carotid Bruit CVS: S1 & S2 audible, Sinus bradycardia, No Murmurs LUNG: Adequate air entry. GI: + BS, Abdomen is Soft EXTREMITIES: Bilateral below the knee amputations, no edema, palpable bilateral popliteal pulses, bilateral femoral pulses +2 SKIN: Warm & Dry Weight Current Weight Dosing Weight: 81.5 kg (01/03/22) Current Weight: 81.5 kg (01/03/22) Dosing Weight: 81.5 kg (01/03/22) Medications Medications (22) Active Scheduled: (17) allopurinol 300 mg tablet 300 mg 1 tab(s), Oral, qDayPC amLODIPine 5 mg tablet 5 mg 1 tab(s), Oral, qDay aspirin 81 mg Chewable 81 mg 1 tab(s), Oral, Daily atorvastatin 40 mg tablet 40 mg 1 tab(s), Oral, qDay citalopram 10 mg tablet 10 mg 1 tab(s), Oral, qAM insulin glargine 25 unit(s) 0.25 mL, Subcutaneous (INT), acBreakfast insulin lispro 100 units/mL Soln (3 mL) Give 2-18 units/dose, Subcutaneous, achs isosorbide mononitrate 30 mg ER tablet 30 mg 1 tab(s), Oral, qAM levothyroxine 50 mcg tablet 50 mcg 1 tab(s), Oral, qAM metformin 500 mg ER tablet 500 mg 1 tab(s), Oral, BID metoprolol succinate 50 mg ER tablet 50 mg 1 tab(s), Oral, qDay mupirocin 2% Ointment 22 Gram(s) tube 1 femi, Nostril, each, BID No metformin for 48 hrs post contrast 1 EA, Miscellaneous, Unscheduled No prasugrel (Effient) 7 days before surgery 1 EA, Miscellaneous, Daily NO vitamin E, clopidogrel (Plavix) 5 days before surgery 1 EA, Miscellaneous, Daily predniSONE 10 mg tablet 10 mg 1 tab(s), Oral, qDay vitamin A 10,000 units capsule 10,000 unit(s) 1 cap(s), Oral, qDay Continuous: (1) heparin 25,000 unit(s) + Dextrose 5% Premix Diluent 250 mL 25,000 unit(s), Intravenous, 10 mL/hr PRN: (4) albuterol - ipratropium 2.5 mg-0.5 mg/3 mL Inhal Sally UD 3 mL, Inhalation, q4hRT heparin 5,000 units/mL (1 mL) vial 4,000 unit(s) 0.8 mL, IV Push, q6h labetalol 5 mg/mL (4 mL) INJ 10 mg 2 mL, IV Push, q20min melatonin 3 mg tablet 3 mg 1 tab(s), Oral, qHS Lab Results 01/03 03:44 WBC: 10.7 Hgb: 13.0 Hct: 38.9 L Platelet: 302 Neutrophil %: 71.9 Glucose Level: 157 H Sodium Level: 137 Potassium Level: 3.9 BUN: 27.0 H Creatinine Lvl (s): 1.52 H Imaging Results and Diagnostics XR Chest 1 View Result Date: December 31, 2021 Verified By: SJ MANTILLA DO CLINICAL STATEMENT: IMPRESSION: 1. Diffuse interstitial opacities/interstitial prominence may reflect achronic etiology, however an atypical infectious process is difficult toexclude. Correlate clinically.2. Mild right basilar subsegmental atelectasis. EKG No qualifying data available. Assessment/Plan 1. CAD (coronary artery disease) EF 45-50% 2. NSTEMI (non-ST elevated myocardial infarction) 3. QUIN (acute kidney injury) 4. CKD (chronic kidney disease), stage III 5. AF (paroxysmal atrial fibrillation) 6. Diabetes Hgb A1c 8.4% 7. HTN (hypertension) 8. HLD (hyperlipidemia) 9. Hypothyroid 10. 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 PVD (peripheral vascular disease) s/p bilateral BKA 2019 12. 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 Left main: The vessel is very short. 2. LAD: Ostial lesion: There is a 90% stenosis. 3. Ramus intermedius: The vessel is small-medium. Proximal vessel lesion: There is a 50% stenosis. 4. Left circumflex: Ostial lesion: There is a 40% stenosis. Collateral flow from the right coronaryposterolateral extension to the distal left circumflex. 5. Right coronary: Proximal vessel lesion: There is a 50% stenosis TTE Summary: 1. Left ventricle: The cavity size is normal. Wall thickness is severely increased. Concentric LeftVentricular Hypertrophy Systolic function is mildly reduced. The estimated ejection fraction is 45-50%. There is mild diffuse hypokinesis. Possible mild hypokinesis of the mid-apical inferolateral and apical myocardium. Grade II diastolicdysfunction. 2. Ventricular septum: Thickness is severely increased. 3. Mitral valve: The annulus is mildly calcified. The leaflets are mildly thickened. There is mild regurgitation. 4. Left atrium: The atrium is moderately dilated. Plan -CTS on board for revascularization, work up ongoing -Continue ASA/Statin/BB/Imdur/Norvasc -Continue heparin drip for AC for Afib (high CHADVASC score) -Endo on board for DM and hypothyroidism management, appreciate recommendations -Nephrology on board for QUIN, Cr improving, cleared for CABG>>continue to avoid nephrotoxic drugs -Monitor hemodynamics closely Time Spent 35 mins Digitally Signed by CELIO CLAROS MD on 01/03/2022 06:35 PM [id number] Nephrology Progress note Date of Service 01/03/2022 Chief Complaint No new complaints. Subjective Patient is lying comfortably in bed. Denies any chest pain or shortness of breath. Denies any nausea, vomiting, abdominal pain. Urine output of 1100 mL over 24 hours. Objective Vitals and Measurements T: 36.2 C (Oral) TMIN: 36.2 C (Oral) TMAX: 36.8 C (Oral) HR: 70(Apical) RR: 18 BP: 145/66 SpO2: 95%WT: 81.5 kg WT: 81.5 kg Physical Exam HEENT: PERRLA, Respiratory: Bilateral air entry is present, clear to auscultation Cardiovascular: S1-S2 present, no rub Abdomen: Obese, soft, NT, BS present Extremities: Bilateral BKA noted Lab Results 01/03 03:44 WBC: 10.7 Hgb: 13.0 Hct: 38.9 L Platelet: 302 Neutrophil %: 71.9 Glucose Level: 157 H Sodium Level: 137 Potassium Level: 3.9 BUN: 27.0 H Creatinine Lvl (s): 1.52 H CO2: 24 Calcium: 9.7 Magnesium: 1.6 01/02 02:25 WBC: 10.8 Hgb: 12.4 L Hct: 36.4 L Platelet: 284 Neutrophil %: 67.5 Glucose Level: 94 Sodium Level: 140 Potassium Level: 3.7 BUN: 31.0 H Creatinine Lvl (s): 1.56 H Assessment/Plan Non-oliguric QUIN on stage III CKD: QUIN resolved, creatinine is below baseline 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 Patient is cleared from renal standpoint with mild risk for CT surgery. Discussed with patient. Will follow as needed. Digitally Signed by TAMIKA RODAS MD on 01/03/2022 10:59 AM [id number] Endocrinology Progress note Date of Service 01/03/22 Chief Complaint DM2 Subjective Chart reviewed. Overnight events and plan of care d/w patient. Patient denies new complaints. Appetite is good. Denies QHS snacking. Awaiting plans per CTS team. Tolerating new addition of metformin without issue. Objective Vitals and Measurements T: 36.2 C (Oral) TMIN: 36.2 C (Oral) TMAX: 36.8 C (Oral) HR: 70(Apical) RR: 18 BP: 145/66 SpO2: 95%WT: 81.5 kg WT: 81.5 kg Intake and Output 7AM Yesterday to 7AM Today Intake and Output (Last 24 hours) Intake Oral Intake 750.00 Supplement Intake 0.00 Output Urine Voided 1100.00 Stool Count 0.00 Total Summary Total Intake 750.00 Total Output 1100.00 Fluid Balance -350.00 Physical Exam Alert, lying in bed, no acute distress Respirations even and unlabored Answers questions appropriately. Mood and affect normal. BL Amputee. Weight Current Weight Dosing Weight: 81.5 kg (01/03/22) Current Weight: 81.5 kg (01/03/22) Dosing Weight: 103.1 kg (12/30/21) Medications Medications (23) Active Scheduled: (17) allopurinol 300 mg tablet 300 mg 1 tab(s), Oral, qDayPC amLODIPine 5 mg tablet 5 mg 1 tab(s), Oral, qDay aspirin 81 mg Chewable 81 mg 1 tab(s), Oral, Daily atorvastatin 40 mg tablet 40 mg 1 tab(s), Oral, qDay citalopram 10 mg tablet 10 mg 1 tab(s), Oral, qAM insulin glargine 25 unit(s) 0.25 mL, Subcutaneous (INT), acBreakfast insulin lispro 100 units/mL Soln (3 mL) Give 2-18 units/dose, Subcutaneous, achs isosorbide mononitrate 30 mg ER tablet 30 mg 1 tab(s), Oral, qAM levothyroxine 50 mcg tablet 50 mcg 1 tab(s), Oral, qAM metformin 500 mg ER tablet 500 mg 1 tab(s), Oral, BID metoprolol succinate 50 mg ER tablet 50 mg 1 tab(s), Oral, qDay mupirocin 2% Ointment 22 Gram(s) tube 1 femi, Nostril, each, BID No metformin for 48 hrs post contrast 1 EA, Miscellaneous, Unscheduled No prasugrel (Effient) 7 days before surgery 1 EA, Miscellaneous, Daily NO vitamin E, clopidogrel (Plavix) 5 days before surgery 1 EA, Miscellaneous, Daily predniSONE 10 mg tablet 10 mg 1 tab(s), Oral, qDay vitamin A 10,000 units capsule 10,000 unit(s) 1 cap(s), Oral, qDay Continuous: (2) heparin 25,000 unit(s) + Dextrose 5% Premix Diluent 250 mL 25,000 unit(s), Intravenous, 10 mL/hr NS (0.9% nacl) 1,000 mL 1,000 mL, Intravenous, 50 mL/hr PRN: (4) albuterol - ipratropium 2.5 mg-0.5 mg/3 mL Inhal Sally UD 3 mL, Inhalation, q4hRT heparin 5,000 units/mL (1 mL) vial 4,000 unit(s) 0.8 mL, IV Push, q6h labetalol 5 mg/mL (4 mL) INJ 10 mg 2 mL, IV Push, q20min melatonin 3 mg tablet 3 mg 1 tab(s), Oral, qHS Lab Results 01/03 03:44 WBC: 10.7 Hgb: 13.0 Hct: 38.9 L Platelet: 302 Neutrophil %: 71.9 Glucose Level: 157 H Sodium Level: 137 Potassium Level: 3.9 BUN: 27.0 H Creatinine Lvl (s): 1.52 H 01/02 02:25 WBC: 10.8 Hgb: 12.4 L Hct: 36.4 L Platelet: 284 Neutrophil %: 67.5 Glucose Level: 94 Sodium Level: 140 Potassium Level: 3.7 BUN: 31.0 H Creatinine Lvl (s): 1.56 H Group Detail Date Value w/Units Flags Normal Range Normal Reference Text Comment Ind Glucose Testing Blood Glucose, Capillary 01/03/2022 07:10:00 EDT 174 mg/dL DC 82-115 Glucose Testing Glucose Level 01/03/2022 03:44:00 EDT 157 mg/dL HI 82-115 Glucose Testing Blood Glucose, Capillary 01/02/2022 21:13:00 EDT 222 mg/dL DC 82-115 Glucose Testing Blood Glucose, Capillary 01/02/2022 16:20:00 EDT 247 mg/dL HI 82-115 Glucose Testing Blood Glucose, Capillary 01/02/2022 11:29:00 EDT 177 mg/dL DC 82-115 EKG No qualifying data available. Assessment/Plan 1. CAD (coronary artery disease) EF 45-50% 2. NSTEMI (non-ST elevated myocardial infarction) 3. QUIN (acute kidney injury) 4. CKD (chronic kidney disease), stage III 5. AF (paroxysmal atrial fibrillation) 6. Diabetes Hgb A1c 8.4% 7. HTN (hypertension) 8. HLD (hyperlipidemia) 9. Hypothyroid 10. 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 PVD (peripheral vascular disease) s/p bilateral BKA 2019 12. Mood disorder 13. History of Singh's palsy Orders: insulin glargine, Start: 01/03/22 7:30:00 EDT, Dose = 25 unit(s), = 0.25 mL, Subcutaneous (INT), acBreakfast, Rate: 0 mL/hr, Infuse over: 0 minute(s), 0, 01/02/22 20:42:00 EDT metFORMIN, Start: 01/02/22 17:00:00 EDT, Dose = 500 mg, = 1 tab(s), Oral, BID, 01/02/22 17:00:00 EDT This is a 81-year-old male with past medical history of atrial fibrillation (previously on Eliquis and amiodarone-discontinued 09/01/2021), diabetes type 2, hypothyroidism, mood disorder, peripheral vascular disease status post bilateral below the knee amputations in 2019, hyperlipidemia, hypertension, chronic kidney disease stage III, Singh's palsy, and giant cell arteritis status post temporal artery biopsy by Dr. Weinstein on 12/24/2021-on prednisone. He resides at [facility] past 3 months. He presented to [facility] on December 30, 2021 due to a sudden onset of alteredmental status and shortness of breath. At [facility], he was noted to have acute kidney injury with creatinine 2.3 and elevated troponin at 3577. EKG revealed normal sinus rhythm without evidenceof ST elevation or depression. Negative for COVID-19 at [facility]. He was transferred to [facility] for further evaluation. Echocardiogram on December 30, 2021 revealed an EF of 45 to 50% and mild MR. Cardiac catheterization completed showing multivessel disease.Cardiothoracic surgery has been consulted for possible surgical myocardial vascularization. Endocrine consult placed by CTS for diabetic management. Longstanding type II diabetic with A1c of 8.4%. Currently residing at [facility] with orders in place forHumalog 32 units with lunch and supper, Toujeo 70 units nightly, sliding scale 3 to 12 units with meals and at bedtime. History of CKD. GFR 44 today. QUIN initially on presentation to [facility]. Nephrology is following here this admission. D/w patient risk for labile BG related to altered renal function. Encouraged protein-based snack at bedtime. History of hyperlipidemia noted. Total cholesterol 129, triglycerides 152, HDL 24, LDL is 75. Continue on Lipitor 40 mg daily inpatient. History of hypothyroidism on levothyroxine 50 mcg daily. Continue on the same. TSH within range 3.091. On chronic prednisone 10 mg daily for giant cell arteritis. Continue on the same inpatient. Last 24 Hours: Current orders are in place for a 2-18 sliding scale with meals and at bedtime and metformin 500 mgtwice daily. Blood glucose trends reviewed, fasting this morning 174. His trends did ramp up at supper and at bedtime above 200. Add Lantus 25 units every morning. May be able to take basal insulin back in a few days when Metformin takes full effect. Consider use of SGLT2 postop. GLP analog should also be added in the outpatient setting. Will continue to follow while inpatient. Time Spent Total time spent 25 minutes Digitally Signed by CASPER MURRY on 01/03/2022 11:17 AM [id number] Cardiology Progress note Date of Service 01/02/2022 Chief Complaint Chest pain Subjective Patient sitting comfortably with no acute complaints. Objective Vitals and Measurements T: 36.8 C (Oral) TMIN: 36.5 C (Oral) TMAX: 36.8 C (Oral) HR: 53(Monitored) RR: 18 BP: 154/70 SpO2: 92% Intake and Output 7AM Yesterday to 7AM Today Intake and Output (Last 24 hours) Intake Oral Intake 350.00 Supplement Intake 0.00 Output Urine Voided 600.00 Stool Count 0.00 Total Summary Total Intake 350.00 Total Output 600.00 Fluid Balance -250.00 Physical Exam Constitutional: AAO x x3, HEENT: Normocephalic, atraumatic, PERRLA +2 mm brisk bilaterally, neck supple, negative JVD, Lungs: Unlabored respirations, lung rios diminished bilaterally Heart: Normal sinus rhythm/bradycardia, S1-S2, no murmur or rub, Abdomen: Soft, nontender, bowel sounds present Extremities: Bilateral below the knee amputations, no edema, palpable bilateral popliteal pulses, bilateral femoral pulses +2 Integumentary: Intact, no rashes, scattered scabbed area of bilateral below the knee amputation stumps Neuro: Cranial nerves II through VIII intact Weight Dosing Weight: 103.1 kg (12/30/21) Medications Medications (22) Active Scheduled: (16) allopurinol 300 mg tablet 300 mg 1 tab(s), Oral, qDayPC amLODIPine 5 mg tablet 5 mg 1 tab(s), Oral, qDay aspirin 81 mg Chewable 81 mg 1 tab(s), Oral, Daily atorvastatin 40 mg tablet 40 mg 1 tab(s), Oral, qDay citalopram 10 mg tablet 10 mg 1 tab(s), Oral, qAM insulin lispro 100 units/mL Soln (3 mL) Give 2-18 units/dose, Subcutaneous, achs isosorbide mononitrate 30 mg ER tablet 30 mg 1 tab(s), Oral, qAM levothyroxine 50 mcg tablet 50 mcg 1 tab(s), Oral, qAM metformin 500 mg ER tablet 500 mg 1 tab(s), Oral, BID metoprolol succinate 50 mg ER tablet 50 mg 1 tab(s), Oral, qDay mupirocin 2% Ointment 22 Gram(s) tube 1 femi, Nostril, each, BID No metformin for 48 hrs post contrast 1 EA, Miscellaneous, Unscheduled No prasugrel (Effient) 7 days before surgery 1 EA, Miscellaneous, Daily NO vitamin E, clopidogrel (Plavix) 5 days before surgery 1 EA, Miscellaneous, Daily predniSONE 10 mg tablet 10 mg 1 tab(s), Oral, qDay vitamin A 10,000 units capsule 10,000 unit(s) 1 cap(s), Oral, qDay Continuous: (2) heparin 25,000 unit(s) + Dextrose 5% Premix Diluent 250 mL 25,000 unit(s), Intravenous, 10 mL/hr NS (0.9% nacl) 1,000 mL 1,000 mL, Intravenous, 50 mL/hr PRN: (4) albuterol - ipratropium 2.5 mg-0.5 mg/3 mL Inhal Sally UD 3 mL, Inhalation, q4hRT heparin 5,000 units/mL (1 mL) vial 4,000 unit(s) 0.8 mL, IV Push, q6h labetalol 5 mg/mL (4 mL) INJ 10 mg 2 mL, IV Push, q20min melatonin 3 mg tablet 3 mg 1 tab(s), Oral, qHS Lab Results 01/02 02:25 WBC: 10.8 Hgb: 12.4 L Hct: 36.4 L Platelet: 284 Neutrophil %: 67.5 Glucose Level: 94 Sodium Level: 140 Potassium Level: 3.7 BUN: 31.0 H Creatinine Lvl (s): 1.56 H EKG EKG - Completed -- 12/30/21 17:52:00 EDT Electrocardiogram (EKG) - Ordered -- 01/01/22 21:11:00 EDT Assessment/Plan 1. CAD (coronary artery disease) EF 45-50% Cardiac catheterization completed showing multivessel disease (official cath report pending at the time of this dictation). Cardiothoracic surgery has been consulted for possible surgical myocardial vascularization. Consultation in progress. 2. NSTEMI (non-ST elevated myocardial infarction) Continue with the current medications 3. QUIN (acute kidney injury) 4. CKD (chronic kidney disease), stage III 5. AF (paroxysmal atrial fibrillation) Continue with metoprolol 6. Diabetes Hgb A1c 8.4% 7. HTN (hypertension) 8. HLD (hyperlipidemia) 9. Hypothyroid 10. 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 PVD (peripheral vascular disease) s/p bilateral BKA 2019 12. Mood disorder 13. History of Singh's palsy PLAN -Patient waiting for the final assessment from CT vascular -Started the patient on amlodipine 5 mg daily -Given the current medications plan plan Orders: amLODIPine, Start: 01/02/22 12:30:00 EDT, Dose = 5 mg, = 1 tab(s), Oral, qDay, 01/02/22 12:30:00 EDT Digitally Signed by BILL ALMODOVAR MD on 01/02/2022 04:22 PM [id number] Cardiology Progress note Date of Service 01/02/2022 Chief Complaint Chest pain Subjective Patient sitting comfortably with no acute complaints. Objective Vitals and Measurements T: 36.8 C (Oral) TMIN: 36.5 C (Oral) TMAX: 36.8 C (Oral) HR: 53(Monitored) RR: 18 BP: 154/70 SpO2: 92% Intake and Output 7AM Yesterday to 7AM Today Intake and Output (Last 24 hours) Intake Oral Intake 350.00 Supplement Intake 0.00 Output Urine Voided 600.00 Stool Count 0.00 Total Summary Total Intake 350.00 Total Output 600.00 Fluid Balance -250.00 Physical Exam Constitutional: AAO x x3, HEENT: Normocephalic, atraumatic, PERRLA +2 mm brisk bilaterally, neck supple, negative JVD, Lungs: Unlabored respirations, lung rios diminished bilaterally Heart: Normal sinus rhythm/bradycardia, S1-S2, no murmur or rub, Abdomen: Soft, nontender, bowel sounds present Extremities: Bilateral below the knee amputations, no edema, palpable bilateral popliteal pulses, bilateral femoral pulses +2 Integumentary: Intact, no rashes, scattered scabbed area of bilateral below the knee amputation stumps Neuro: Cranial nerves II through VIII intact Weight Dosing Weight: 103.1 kg (12/30/21) Medications Medications (22) Active Scheduled: (16) allopurinol 300 mg tablet 300 mg 1 tab(s), Oral, qDayPC amLODIPine 5 mg tablet 5 mg 1 tab(s), Oral, qDay aspirin 81 mg Chewable 81 mg 1 tab(s), Oral, Daily atorvastatin 40 mg tablet 40 mg 1 tab(s), Oral, qDay citalopram 10 mg tablet 10 mg 1 tab(s), Oral, qAM insulin lispro 100 units/mL Soln (3 mL) Give 2-18 units/dose, Subcutaneous, achs isosorbide mononitrate 30 mg ER tablet 30 mg 1 tab(s), Oral, qAM levothyroxine 50 mcg tablet 50 mcg 1 tab(s), Oral, qAM metformin 500 mg ER tablet 500 mg 1 tab(s), Oral, BID metoprolol succinate 50 mg ER tablet 50 mg 1 tab(s), Oral, qDay mupirocin 2% Ointment 22 Gram(s) tube 1 femi, Nostril, each, BID No metformin for 48 hrs post contrast 1 EA, Miscellaneous, Unscheduled No prasugrel (Effient) 7 days before surgery 1 EA, Miscellaneous, Daily NO vitamin E, clopidogrel (Plavix) 5 days before surgery 1 EA, Miscellaneous, Daily predniSONE 10 mg tablet 10 mg 1 tab(s), Oral, qDay vitamin A 10,000 units capsule 10,000 unit(s) 1 cap(s), Oral, qDay Continuous: (2) heparin 25,000 unit(s) + Dextrose 5% Premix Diluent 250 mL 25,000 unit(s), Intravenous, 10 mL/hr NS (0.9% nacl) 1,000 mL 1,000 mL, Intravenous, 50 mL/hr PRN: (4) albuterol - ipratropium 2.5 mg-0.5 mg/3 mL Inhal Sally UD 3 mL, Inhalation, q4hRT heparin 5,000 units/mL (1 mL) vial 4,000 unit(s) 0.8 mL, IV Push, q6h labetalol 5 mg/mL (4 mL) INJ 10 mg 2 mL, IV Push, q20min melatonin 3 mg tablet 3 mg 1 tab(s), Oral, qHS Lab Results 01/02 02:25 WBC: 10.8 Hgb: 12.4 L Hct: 36.4 L Platelet: 284 Neutrophil %: 67.5 Glucose Level: 94 Sodium Level: 140 Potassium Level: 3.7 BUN: 31.0 H Creatinine Lvl (s): 1.56 H EKG EKG - Completed -- 12/30/21 17:52:00 EDT Electrocardiogram (EKG) - Ordered -- 01/01/22 21:11:00 EDT Assessment/Plan 1. CAD (coronary artery disease) EF 45-50% Cardiac catheterization completed showing multivessel disease (official cath report pending at the time of this dictation). Cardiothoracic surgery has been consulted for possible surgical myocardial vascularization. Consultation in progress. 2. NSTEMI (non-ST elevated myocardial infarction) Continue with the current medications 3. QUIN (acute kidney injury) 4. CKD (chronic kidney disease), stage III 5. AF (paroxysmal atrial fibrillation) Continue with metoprolol 6. Diabetes Hgb A1c 8.4% 7. HTN (hypertension) 8. HLD (hyperlipidemia) 9. Hypothyroid 10. 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 PVD (peripheral vascular disease) s/p bilateral BKA 2019 12. Mood disorder 13. History of Singh's palsy PLAN -Patient waiting for the final assessment from CT vascular -Started the patient on amlodipine 5 mg daily -Given the current medications plan plan Orders: amLODIPine, Start: 01/02/22 12:30:00 EDT, Dose = 5 mg, = 1 tab(s), Oral, qDay, 01/02/22 12:30:00 EDT Digitally Signed by BILL ALMODOVAR MD on 01/02/2022 04:22 PM [id number] Endocrinology Progress note Date of Service 01/02/22 Chief Complaint DM2; Hyperglycemia Subjective Chart reviewed. Overnight events and plan of care d/w patient. Patient denies new complaints. Appetite is good at lunch. Little intake at breakfast; reports he was not hungry then. Continues w/ OHS w/u. Intake and Output 7AM Yesterday to 7AM Today Intake and Output (Last 24 hours) Intake Oral Intake 350.00 Supplement Intake 0.00 Output Urine Voided 600.00 Stool Count 0.00 Total Summary Total Intake 350.00 Total Output 600.00 Fluid Balance -250.00 Physical Exam Alert, lying in bed, no acute distress Respirations even and unlabored Answers questions appropriately. Mood and affect normal. Weight Dosing Weight: 103.1 kg (12/30/21) Medications Medications (21) Active Scheduled: (15) allopurinol 300 mg tablet 300 mg 1 tab(s), Oral, qDayPC amLODIPine 5 mg tablet 5 mg 1 tab(s), Oral, qDay aspirin 81 mg Chewable 81 mg 1 tab(s), Oral, Daily atorvastatin 40 mg tablet 40 mg 1 tab(s), Oral, qDay citalopram 10 mg tablet 10 mg 1 tab(s), Oral, qAM insulin lispro 100 units/mL Soln (3 mL) Give 2-18 units/dose, Subcutaneous, achs isosorbide mononitrate 30 mg ER tablet 30 mg 1 tab(s), Oral, qAM levothyroxine 50 mcg tablet 50 mcg 1 tab(s), Oral, qAM metoprolol succinate 50 mg ER tablet 50 mg 1 tab(s), Oral, qDay mupirocin 2% Ointment 22 Gram(s) tube 1 femi, Nostril, each, BID No metformin for 48 hrs post contrast 1 EA, Miscellaneous, Unscheduled No prasugrel (Effient) 7 days before surgery 1 EA, Miscellaneous, Daily NO vitamin E, clopidogrel (Plavix) 5 days before surgery 1 EA, Miscellaneous, Daily predniSONE 10 mg tablet 10 mg 1 tab(s), Oral, qDay vitamin A 10,000 units capsule 10,000 unit(s) 1 cap(s), Oral, qDay Continuous: (2) heparin 25,000 unit(s) + Dextrose 5% Premix Diluent 250 mL 25,000 unit(s), Intravenous, 10 mL/hr NS (0.9% nacl) 1,000 mL 1,000 mL, Intravenous, 50 mL/hr PRN: (4) albuterol - ipratropium 2.5 mg-0.5 mg/3 mL Inhal Sally UD 3 mL, Inhalation, q4hRT heparin 5,000 units/mL (1 mL) vial 4,000 unit(s) 0.8 mL, IV Push, q6h labetalol 5 mg/mL (4 mL) INJ 10 mg 2 mL, IV Push, q20min melatonin 3 mg tablet 3 mg 1 tab(s), Oral, qHS Lab Results 01/02 02:25 WBC: 10.8 Hgb: 12.4 L Hct: 36.4 L Platelet: 284 Neutrophil %: 67.5 Glucose Level: 94 Sodium Level: 140 Potassium Level: 3.7 BUN: 31.0 H Creatinine Lvl (s): 1.56 H 01/01 03:10 WBC: 10.0 Hgb: 12.4 L Hct: 37.2 L Platelet: 289 Neutrophil %: 72.9 Glucose Level: 180 H Sodium Level: 141 Potassium Level: 4.2 BUN: 32.0 H Creatinine Lvl (s): 1.48 H Group Detail Date Value w/Units Flags Normal Range Normal Reference Text Comment Ind Glucose Testing Blood Glucose, Capillary 01/02/2022 11:29:00 EDT 177 mg/dL HI 82-115 Glucose Testing Blood Glucose, Capillary 01/02/2022 07:13:00 EDT 91 mg/dL 82-115 Glucose Testing Glucose Level 01/02/2022 02:25:00 EDT 94 mg/dL 82-115 Glucose Testing Blood Glucose, Capillary 01/01/2022 22:04:00 EDT 123 mg/dL HI 82-115 Glucose Testing Blood Glucose, Capillary 01/01/2022 18:20:00 EDT 131 mg/dL HI 82-115 Glucose Testing Blood Glucose, Capillary 01/01/2022 18:20:00 EDT 131 mg/dL HI 82-115 EKG EKG - Completed -- 12/30/21 17:52:00 EDT Electrocardiogram (EKG) - Ordered -- 01/01/22 21:11:00 EDT Assessment/Plan 1. CAD (coronary artery disease) EF 45-50% 2. NSTEMI (non-ST elevated myocardial infarction) 3. QUIN (acute kidney injury) 4. CKD (chronic kidney disease), stage III 5. AF (paroxysmal atrial fibrillation) 6. Diabetes Hgb A1c 8.4% 7. HTN (hypertension) 8. HLD (hyperlipidemia) 9. Hypothyroid 10. 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 PVD (peripheral vascular disease) s/p bilateral BKA 2019 12. 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 Weinstein on 12/24/2021-on prednisone. [facility] He presented to [facility] on December 30, 2021 due to a sudden onset of alteredmental status and shortness of breath. At [facility], he was noted to have acute kidney injury with creatinine 2.3 and elevated troponin at 3577. EKG revealed normal sinus rhythm without evidenceof ST elevation or depression. Negative for COVID-19 at [facility]. He was transferred to [facility] for further evaluation. Echocardiogram on December 30, 2021 revealed an EF of 45 to 50% and mild MR. Cardiac catheterization completed showing multivessel disease.Cardiothoracic surgery has been consulted for possible surgical myocardial vascularization. Endocrine consult placed by [facility] for diabetic management. Longstanding type II diabetic with A1c of 8.4%. Currently residing at [facility] with orders in place for Humalog 32 units with lunch and supper, Toujeo 70 units nightly, sliding scale 3 to 12 units with meals and at bedtime. History of CKD. GFR 43 today. QUIN initially on presentation to . Nephrology is following here this admission. D/w patient risk for labile BG related to altered renal function. Encouraged protein-based snack at bedtime. History of hyperlipidemia noted. Total cholesterol 129, triglycerides 152, HDL 24, LDL is 75. Continue on Lipitor 40 mg daily inpatient. History of hypothyroidism on levothyroxine 50 mcg daily. Continue on the same. TSH within range 3.091. On chronic prednisone 10 mg daily for giant cell arteritis. Continue on the same inpatient. Last 24 Hours: Met w/ lacquer shader; appreciate input and teaching. Current orders are in place for a 2-18 sliding scale with meals and at bedtime alone. Blood glucose this morning with the same 91. Discussed with [facility] TABITHA Pace. OHS work-up continues. No definitive date for CABG. Add low-dose metformin 500 mg twice daily. Hold off on SGLT2 until postop. GLP analog could be considered outpatient. Reintroduction of basal IP as needed. Discussed with bedside RN Will continue to follow while inpatient. Time Spent Total time spent 25 minutes Digitally Signed by CASPER MURRY on 01/02/2022 01:55 PM [id number] Nurse Progress note A student nurse administered medications and completed assessments on this patient under my supervision this evening. Nayeli Beckham RN Digitally Signed by KAVIN Beckham on 01/02/2022 01:02 AM [id number] Cardiology Progress note Date of Service 01/01/2022 Chief Complaint Chest Pain Subjective Patient lying in bed with no acute complaints. Objective Vitals and Measurements T: 36.5 C (Oral) TMIN: 36.4 C (Oral) TMAX: 36.8 C (Oral) HR: 56(Monitored) RR: 18 BP: 132/70 SpO2: 91% Intake and Output 7AM Yesterday to 7AM Today Intake and Output (Last 24 hours) Intake Administration Information 500.00 Oral Intake 200.00 Output Urine Voided 400.00 Stool Count 1.00 Total Summary Total Intake 700.00 Total Output 400.00 Fluid Balance 300.00 Physical Exam Constitutional: AAO x x3, HEENT: Normocephalic, atraumatic, PERRLA +2 mm brisk bilaterally, neck supple, negative JVD, Lungs: Unlabored respirations, lung rios diminished bilaterally Heart: Normal sinus rhythm/bradycardia, S1-S2, no murmur or rub, Abdomen: Soft, nontender, bowel sounds present Extremities: Bilateral below the knee amputations, no edema, palpable bilateral popliteal pulses, bilateral femoral pulses +2 Integumentary: Intact, no rashes, scattered scabbed area of bilateral below the knee amputation stumps Neuro: Cranial nerves II through VIII intact Weight Dosing Weight: 103.1 kg (12/30/21) Medications Medications (19) Active Scheduled: (13) allopurinol 300 mg tablet 300 mg 1 tab(s), Oral, qDayPC aspirin 81 mg Chewable 81 mg 1 tab(s), Oral, Daily atorvastatin 40 mg tablet 40 mg 1 tab(s), Oral, qDay citalopram 10 mg tablet 10 mg 1 tab(s), Oral, qAM insulin lispro 100 units/mL Soln (3 mL) Give 2-18 units/dose, Subcutaneous, achs isosorbide mononitrate 30 mg ER tablet 30 mg 1 tab(s), Oral, qAM levothyroxine 50 mcg tablet 50 mcg 1 tab(s), Oral, qAM metoprolol succinate 50 mg ER tablet 50 mg 1 tab(s), Oral, qDay mupirocin 2% Ointment 22 Gram(s) tube 1 femi, Nostril, each, BID No metformin for 48 hrs post contrast 1 EA, Miscellaneous, Unscheduled No prasugrel (Effient) 7 days before surgery 1 EA, Miscellaneous, Daily NO vitamin E, clopidogrel (Plavix) 5 days before surgery 1 EA, Miscellaneous, Daily predniSONE 10 mg tablet 10 mg 1 tab(s), Oral, qDay Continuous: (2) heparin 25,000 unit(s) + Dextrose 5% Premix Diluent 250 mL 25,000 unit(s), Intravenous, 10 mL/hr NS (0.9% nacl) 1,000 mL 1,000 mL, Intravenous, 50 mL/hr PRN: (4) albuterol - ipratropium 2.5 mg-0.5 mg/3 mL Inhal Sally UD 3 mL, Inhalation, q4hRT heparin 5,000 units/mL (1 mL) vial 4,000 unit(s) 0.8 mL, IV Push, q6h labetalol 5 mg/mL (4 mL) INJ 10 mg 2 mL, IV Push, q20min melatonin 3 mg tablet 3 mg 1 tab(s), Oral, qHS Lab Results 01/01 03:10 WBC: 10.0 Hgb: 12.4 L Hct: 37.2 L Platelet: 289 Neutrophil %: 72.9 Glucose Level: 180 H Sodium Level: 141 Potassium Level: 4.2 BUN: 32.0 H Creatinine Lvl (s): 1.48 H EKG EKG - Completed -- 12/30/21 5:13:00 EDT, Admission EKG - Completed -- 12/30/21 11:52:00 EDT Assessment/Plan 1. CAD (coronary artery disease) EF 45-50% Cardiac catheterization completed showing multivessel disease (official cath report pending at the time of this dictation). Cardiothoracic surgery has been consulted for possible surgical myocardial vascularization. Consultation in progress. 2. NSTEMI (non-ST elevated myocardial infarction) Continue with the current medications 3. QUIN (acute kidney injury) Continue with current management. Patient is cleared from renal standpoint with mild risk for possible CT surgery. Discussed with patient. Labs in AM. Will follow. 4. CKD (chronic kidney disease), stage III 5. AF (paroxysmal atrial fibrillation) Continue with metoprolol 6. Diabetes Hgb A1c 8.4% 7. HTN (hypertension) 8. HLD (hyperlipidemia) 11. PVD (peripheral vascular disease) s/p bilateral BKA 2020 Digitally Signed by BILL ALMODOVAR MD on 01/01/2022 08:04 PM [id number] Cardiology Progress note Date of Service 01/01/2022 Chief Complaint Chest Pain Subjective Patient lying in bed with no acute complaints. Objective Vitals and Measurements T: 36.5 C (Oral) TMIN: 36.4 C (Oral) TMAX: 36.8 C (Oral) HR: 56(Monitored) RR: 18 BP: 132/70 SpO2: 91% Intake and Output 7AM Yesterday to 7AM Today Intake and Output (Last 24 hours) Intake Administration Information 500.00 Oral Intake 200.00 Output Urine Voided 400.00 Stool Count 1.00 Total Summary Total Intake 700.00 Total Output 400.00 Fluid Balance 300.00 Physical Exam Constitutional: AAO x x3, HEENT: Normocephalic, atraumatic, PERRLA +2 mm brisk bilaterally, neck supple, negative JVD, Lungs: Unlabored respirations, lung rios diminished bilaterally Heart: Normal sinus rhythm/bradycardia, S1-S2, no murmur or rub, Abdomen: Soft, nontender, bowel sounds present Extremities: Bilateral below the knee amputations, no edema, palpable bilateral popliteal pulses, bilateral femoral pulses +2 Integumentary: Intact, no rashes, scattered scabbed area of bilateral below the knee amputation stumps Neuro: Cranial nerves II through VIII intact Weight Dosing Weight: 103.1 kg (12/30/21) Medications Medications (19) Active Scheduled: (13) allopurinol 300 mg tablet 300 mg 1 tab(s), Oral, qDayPC aspirin 81 mg Chewable 81 mg 1 tab(s), Oral, Daily atorvastatin 40 mg tablet 40 mg 1 tab(s), Oral, qDay citalopram 10 mg tablet 10 mg 1 tab(s), Oral, qAM insulin lispro 100 units/mL Soln (3 mL) Give 2-18 units/dose, Subcutaneous, achs isosorbide mononitrate 30 mg ER tablet 30 mg 1 tab(s), Oral, qAM levothyroxine 50 mcg tablet 50 mcg 1 tab(s), Oral, qAM metoprolol succinate 50 mg ER tablet 50 mg 1 tab(s), Oral, qDay mupirocin 2% Ointment 22 Gram(s) tube 1 femi, Nostril, each, BID No metformin for 48 hrs post contrast 1 EA, Miscellaneous, Unscheduled No prasugrel (Effient) 7 days before surgery 1 EA, Miscellaneous, Daily NO vitamin E, clopidogrel (Plavix) 5 days before surgery 1 EA, Miscellaneous, Daily predniSONE 10 mg tablet 10 mg 1 tab(s), Oral, qDay Continuous: (2) heparin 25,000 unit(s) + Dextrose 5% Premix Diluent 250 mL 25,000 unit(s), Intravenous, 10 mL/hr NS (0.9% nacl) 1,000 mL 1,000 mL, Intravenous, 50 mL/hr PRN: (4) albuterol - ipratropium 2.5 mg-0.5 mg/3 mL Inhal Sally UD 3 mL, Inhalation, q4hRT heparin 5,000 units/mL (1 mL) vial 4,000 unit(s) 0.8 mL, IV Push, q6h labetalol 5 mg/mL (4 mL) INJ 10 mg 2 mL, IV Push, q20min melatonin 3 mg tablet 3 mg 1 tab(s), Oral, qHS Lab Results 01/01 03:10 WBC: 10.0 Hgb: 12.4 L Hct: 37.2 L Platelet: 289 Neutrophil %: 72.9 Glucose Level: 180 H Sodium Level: 141 Potassium Level: 4.2 BUN: 32.0 H Creatinine Lvl (s): 1.48 H EKG EKG - Completed -- 12/30/21 5:13:00 EDT, Admission EKG - Completed -- 12/30/21 11:52:00 EDT Assessment/Plan 1. CAD (coronary artery disease) EF 45-50% Cardiac catheterization completed showing multivessel disease (official cath report pending at the time of this dictation). Cardiothoracic surgery has been consulted for possible surgical myocardial vascularization. Consultation in progress. 2. NSTEMI (non-ST elevated myocardial infarction) Continue with the current medications 3. QUIN (acute kidney injury) Continue with current management. Patient is cleared from renal standpoint with mild risk for possible CT surgery. Discussed with patient. Labs in AM. Will follow. 4. CKD (chronic kidney disease), stage III 5. AF (paroxysmal atrial fibrillation) Continue with metoprolol 6. Diabetes Hgb A1c 8.4% 7. HTN (hypertension) 8. HLD (hyperlipidemia) 11. PVD (peripheral vascular disease) s/p bilateral BKA 2019 Digitally Signed by BILL ALMODOVAR MD on 01/01/2022 08:04 PM [id number] Note I saw and evaluated the patient on 01/01/2022. I agree with the CARDIOGRAPHER note of 12/31/2021. The patient is an 81-year-old male with multiple medical problems and bilateral amputations. He presented with dyspnea and altered mental status to an outside facility he was transferred here was found on evaluation to have multivessel coronary disease. Currently he is answering questions readily and is pain-free On exam he has clear lungs and normal heart rhythm the abdomen is soft extremities are warm. The stumps appear to be mildly excoriated but otherwise intact. Cardiac catheterization shows a significant LAD lesion there is some ratty disease of the circumflex and of the right coronary. Echo to my eye shows reasonable wall motion but somewhat sluggish. Impression coronary disease reasonable function reasonable targets. Patient had surprisingly high risk by STS calculations likely due to the peripheral vascular disease and neurologic elements of hispresentation. Plan we will continue the evaluation for potential coronary bypass. Digitally Signed by TRINY HERNANDEZ MD on 01/01/2022 10:53 AM [id number] Cardiothoracic surgery Consult note Date of Service 12/31/2021 Reason for Consultation Evaluation for CABG Referring Physician Dr. Barrera History of Present Illness This is a split/shared visit with Dr. Hernandez. 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 Weinstein on 12/24/2021-on prednison. He resides at [facility] for the past 3 months. He presented to [facility] on December 30, 2021 due to a sudden onset of altered mental status and shortness of breath. He endorses nonproductive cough. Denied any chest pain or syncope. At [facility], he was noted to have acute kidney injury with creatinine 2.3 and elevated troponinat 3577. EKG revealed normal sinus rhythm without evidence of ST elevation or depression. Negative for COVID-19 at [facility]. He was transferred to [facility] for further evaluation. Echocardiogram on December 30, 2021 revealed an EF of 45 to 50% and mild MR. Cardiac catheterization completed earlier today showing multivessel disease (official cath report pending at the time of this dictation). Cardiothoracic surgery has been consulted for possible surgical myocardial vascularization. Eliquis was discontinued per alf reports on September 01, 2021. Patient is currently on heparin by weight drip. STS gross assessment for CABG: Risk of Mortality: 4.408% Renal Failure: 6.161% Permanent Stroke: 1.921% Prolonged Ventilation: 9.743% DSW Infection: 0.460% Reoperation: 1.979% Morbidity or Mortality: 16.743% Short Length of Stay: 23.071% Long Length of Stay: 12.163% Review of Systems Constitutional: Denies fever, chills, weight loss, weight gain HEENT: Edentulous with upper and lower dentures; denies dysphagia, hearing loss, headaches Respiratory: See HPI CV: See HPI Vascular: Denies nonhealing ulcers, DVTs GI: Denies nausea, vomiting, constipation, diarrhea : Denies dysuria, hematuria, urinary incontinence Neuro: Reports generalized weakness; denies numbness or tingling Endo: Denies heat/cold intolerance, hair loss, polyuria Heme/oncology: Denies bleeding, bruising, lymphadenopathy Muscular/skeletal: Denies arthralgia, back pain Psych: Denies anxious, nervousness, suicidal ideations Physical Exam Vitals and Measurements T: 36.6 C (Oral) TMIN: 36.4 C (Oral) TMAX: 36.8 C (Oral) HR: 59(Monitored) RR: 18 BP: 187/69 SpO2: 93% Weight Dosing Weight: 103.1 kg (12/30/21) Constitutional: Alert, oriented x3, appropriate HEENT: Normocephalic, atraumatic, PERRLA +2 mm brisk bilaterally, neck supple, negative JVD, no carotid bruit, edentulous Lungs: Unlabored respirations, lung rios diminished bilaterally, SPO2 93 to 95% on room air Heart: Normal sinus rhythm/bradycardia, S1-S2, no murmur or rub, heart rate ranging 57-63 Abdomen: Soft, nontender, bowel sounds present Extremities: Bilateral below the knee amputations, no edema, palpable bilateral popliteal pulses, bilateral femoral pulses +2 Integumentary: Intact, no rashes, scattered scabbed area of bilateral below the knee amputation stumps Neuro: Cranial nerves II through VIII intact Lab Results 12/31 06:42 WBC: 11.9 H Hgb: 12.4 L Hct: 36.8 L Platelet: 274 Neutrophil %: 68.1 Glucose Level: 105 Sodium Level: 142 Potassium Level: 4.1 BUN: 35.0 H Creatinine Lvl (s): 1.55 H 12/30 07:25 WBC: 11.9 H Hgb: 12.5 L Hct: 37.7 L Platelet: 277 Neutrophil %: 71.5 Protime: 12.4 PT International Ratio: 1.0 Glucose Level: 58 L Sodium Level: 148 H Potassium Level: 3.8 BUN: 48.0 H Creatinine Lvl (s): 1.95 H Imaging Results and Diagnostics Summary: 1. Left ventricle: The cavity size is normal. Wall thickness is severely increased. Concentric LeftVentricular Hypertrophy Systolic function is mildly reduced. The estimated ejection fraction is 45-50%. There is mild diffuse hypokinesis. Possible mild hypokinesis of the mid-apical inferolateral and apical myocardium. Grade II diastolicdysfunction. 2. Ventricular septum: Thickness is severely increased. 3. Mitral valve: The annulus is mildly calcified. The leaflets are mildly thickened. There is mild regurgitation. 4. Left atrium: The atrium is moderately dilated. [1] Assessment/Plan 1. CAD (coronary artery disease) EF 45-50% Surgical work-up in process. Surgical evaluation pending by Dr. Hernandez. 2. NSTEMI (non-ST elevated myocardial infarction) On heparin by weight 3. QUIN (acute kidney injury) Followed by nephrology. BUN and creatinine currently 35 and 1.55. 4. CKD (chronic kidney disease), stage III Unknown baseline. Patient follows with Dr. Montgomery of nephrology in [place]. 5. AF (paroxysmal atrial fibrillation) Currently in normal sinus rhythm/sinus bradycardia. 6. Diabetes Hgb A1c 8.4% Consult inpatient endocrinology. 7. HTN (hypertension) On metoprolol and isosorbide mononitrate 8. HLD (hyperlipidemia) On atorvastatin 9. Hypothyroid Levothyroxine 10. Giant cell arteritis s/p temporal artery biopsy 12/24/2021 Follows with vascular surgery. On prednisone 11. PVD (peripheral vascular disease) s/p bilateral BKA 2019 12. Mood disorder Citalopram 13. History of Singh's palsy Approximately 45 minutes spent obtaining past medical history from EMR and transfer alf documentation, conducting [id number] visit with patient at bedside, and dictating details of today'svisit. 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 HLD (hyperlipidemia) HTN (hypertension) Hypothyroid Mood disorder NSTEMI (non-ST elevated myocardial infarction) PVD (peripheral vascular disease) Procedure/Surgical History Bilateral knee amputations 2019 Bilateral temporal artery biopsies 12/24/2021 Medications Inpatient aspirin, 81 mg= 1 tab(s), Oral, Daily citalopram, 10 mg= 1 tab(s), Oral, qAM DuoNeb, 3 mL, Inhalation, q4hRT, PRN Heparin 10,000 units/mL heparin 25,000 unit(s) + Dextrose 5% Premix Diluent 250 mL Heparin HBW CARDIAC Bolus 5000 units/mL, 4000 unit(s)= 0.8 mL, 60 unit(s)/kg, IV Push, q6h, PRN isosorbide mononitrate 30 mg oral tablet, extended release, 30 mg= 1 tab(s), Oral, qAM labetalol, 10 mg= 2 mL, IV Push, q20min, PRN levothyroxine, 50 mcg= 1 tab(s), Oral, qAM Lipitor, 40 mg= 1 tab(s), Oral, qDay melatonin, 3 mg= 1 tab(s), Oral, qHS, PRN metoprolol succinate 50 mg oral TABLET extended release, 50 mg= 1 tab(s), Oral, qDay NO METFORMIN (Glucophage) X 48hrs-patient has received contrast, 1 EA, Miscellaneous, Unscheduled Normal Saline 1,000 mL, 1000 mL, Intravenous predniSONE, 10 mg= 1 tab(s), Oral, qDay Home amiodarone 200 mg oral tablet, 200 mg= 1 tab(s), Oral, qAM, Investigating citalopram 10 mg oral tablet, 10 mg= 1 tab(s), Oral, qAM Eliquis 5 mg oral tablet, 5 mg= 1 tab(s), Oral, BID, Investigating HumaLOG 100 units/mL injectable solution VIAL, 50 unit(s), Subcutaneous, TID isosorbide mononitrate 30 mg oral tablet, extended release, 15 mg= 0.5 tab(s), Oral, qAM levothyroxine 50 mcg (0.05 mg) oral tablet, 50 mcg= 1 tab(s), Oral, qAM Lipitor, 20 mg, Oral, qDay lisinopril, 20 mg, Oral, qDay metoprolol succinate 50 mg oral TABLET extended release, 50 mg= 1 tab(s), Oral, qDay predniSONE 10 mg oral tablet, 10 mg= 1 tab(s), Oral, qDay Toujeo Max SoloStar 300 units/mL subcutaneous solution, 100 unit(s), Subcutaneous, qHS, Investigating Allergies NKA Social History Tobacco use: Former user, quit 40 years ago Alcohol use: Occasional Illicit drug use: Patient denies Living arrangements: Currently lives at [address] however lived at home prior to Ambulatory aids: Motorized scooter, has bilateral leg prosthesis however states that these are painful to use Family History 2 living children, healthy Patient unable to recall health history of parents which are both . Immunizations SARS-CoV-2 (COVID-19) mRNA-1273 vaccine: 0.3 unknown unit (05/21/21) SARS-CoV-2 (COVID-19) mRNA-1273 vaccine: 0 unknown unit (10/13/20) SARS-CoV-2 (COVID-19) mRNA-1273 vaccine: 0 unknown unit (09/15/20) [1] Echocardiogram, Adult - CV; Len Lucio 12/30/2021 17:21 EDT Digitally Signed by YIMI NEWELL on 12/31/2021 05:21 PM [place] [id number] Endocrinology Consult note Date of Service 01/01/22 Reason for Consultation DM2 Management Referring Physician Yimi Newell APRN History of Present Illness This is a 81-year-old male with past medical history of atrial fibrillation (previously on Eliquis and amiodarone-discontinued 09/01/2021), diabetes type 2, hypothyroidism, mood disorder, peripheral vascular disease status post bilateral below the knee amputations in 2019, hyperlipidemia, hypertension, chronic kidney disease stage III, Singh's palsy, and giant cell arteritis status post temporal artery biopsy by Dr. Weinstein on 12/24/2021-on prednisone. [facility] resides [facility] for[facility] past [facility]. He presented to [facility] on December 30, 2021 due to a sudden onset of alteredmental status and shortness of breath. At [facility], he was noted to have acute kidney injury with creatinine 2.3 and elevated troponin at 3577. EKG revealed normal sinus rhythm without evidenceof ST elevation or depression. Negative for COVID-19 at [facility]. He was transferred to [facility] for further evaluation. Echocardiogram on December 30, 2021 revealed an EF of 45 to 50% and mild MR. Cardiac catheterization completed showing multivessel disease.Cardiothoracic surgery hasbeen consulted for possible surgical myocardial vascularization. Endocrine consult placed by [facility] for diabetic management. Blood sugar trends, labs, chart reviewed Patient reports at least a 40-year history of type 2 diabetes. Managed by his PCP. Currently resides at [facility]. He is unable to speak to his insulin dosages. Nursing medicationlist and MAR was reviewed showing orders for Humalog 32 units with lunch and supper, Humalog 3-12 sliding scale with meals and at bedtime and Toujeo 70 units nightly. Blood sugars are monitored 4 times daily. MAR shows recent trends higher 100s into the 300s at times. Patient is denying any polydipsia, polyuria. Reports fair appetite. He is claiming weight loss of almost 100 pounds over the past 3 to 4 months which he reports due to not caring much for the food at [facility]. He reports weight of 156 p ounds but per cerner 103.1 kg. So likely more around 20 pounds of weight lost. He does have diabetic complications including CKD, retinopathy. He is also status post bilateral lower extremity amputation. On chronic prednisone 10 mg daily for giant cell arteritis. Family history of diabetes is reported in his brother as well as his father. Both required insulin management. Patient denies thyroid disease but does have orders per [facility] for levothyroxine 50 mcg daily and carries a diagnosis of hypothyroidism per the records. Denies family history of thyroid disease. Reviewed A1c which resulted herethis admission at 8.4%. His thyroid function was within range at 3.091. Seen today in the CCU, eating while here inpatient. No headaches, dizziness, fever or chills. Undergoing [facility] eval. Review of Systems Negative for all systems except at mentioned in HPI Physical Exam Vitals and Measurements T: 36.8 C (Oral) TMIN: 36.4 C (Oral) TMAX: 36.8 C (Oral) HR: 54(Monitored) RR: 18 BP: 148/72 SpO2: 94% Weight Dosing Weight: 103.1 kg (12/30/21) Constitutional: Alert and appropriate. No acute distress. HEENT: Normocephalic. Atraumatic. Endo: No goiter. Lungs: Speaks in full sentences w/o difficulty. Respirations are unlabored. Abdomen: Soft, non-distended. Neurological: Speech is clear. No gross motor deficits. Follows simple commands appropriately. Skin: Warm and dry. No diaphoresis, cyanosis or rashes. Psychiatric: Mood and affect are appropriate. Alert & oriented x3. Lab Results 01/01 03:10 WBC: 10.0 Hgb: 12.4 L Hct: 37.2 L Platelet: 289 Neutrophil %: 72.9 Glucose Level: 180 H Sodium Level: 141 Potassium Level: 4.2 BUN: 32.0 H Creatinine Lvl (s): 1.48 H 12/31 06:42 WBC: 11.9 H Hgb: 12.4 L Hct: 36.8 L Platelet: 274 Neutrophil %: 68.1 Glucose Level: 105 Sodium Level: 142 Potassium Level: 4.1 BUN: 35.0 H Creatinine Lvl (s): 1.55 H Group Detail Date Value w/Units Flags Normal Range Normal Reference Text Comment Ind Glucose Testing Blood Glucose, Capillary 01/01/2022 08:40:00 EDT 219 mg/dL HI 82-115 Glucose Testing Glucose Level 01/01/2022 03:10:00 EDT 180 mg/dL DC 82-115 EKG EC12/30/21: SINUS RHYTHM...normal P axis, V-rate 50- 99 BORDERLINE RIGHT AXIS DEVIATION...QRS axis ( 81, 90) MINIMAL ST DEPRESSION, LATERAL LEADS...ST <-0.04mV, I aVL V5 V6 BORDERLINE PROLONGED QT INTERVAL...QTc >475mS Electronic Signature: LOUIE MUNOZ MD 01/01/2022 09:30:39 Assessment/Plan 1. CAD (coronary artery disease) EF 45-50% 2. NSTEMI (non-ST elevated myocardial infarction) 3. QUIN (acute kidney injury) 4. CKD (chronic kidney disease), stage III 5. AF (paroxysmal atrial fibrillation) 6. Diabetes Hgb A1c 8.4% 7. HTN (hypertension) 8. HLD (hyperlipidemia) 9. Hypothyroid 10. 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 PVD (peripheral vascular disease) s/p bilateral BKA 2019 12. Mood disorder 13. History of Singh's palsy Orders: insulin glargine, Start: 01/01/22 10:47:00 EDT, Dose = 25 unit(s), = 0.25 mL, Subcutaneous (INT), now, STAT, Stop: 01/01/22 10:47:00 EDT, Rate: 0 mL/hr, Infuse over: 0 minute(s), 01/01/22 10:47:00 EDT insulin lispro (HumaLOG), Start: 01/01/22 8:24:00 EDT, Give 2-18 units/dose, Subcutaneous, achs, NOW, 0, 01/01/22 8:24:00 EDT [place] [employer] Diet Consult to Diabetes Education Consult to Dietitian This is a 81-year-old male with past medical history of atrial fibrillation (previously on Eliquis and amiodarone-discontinued 09/01/2021), diabetes type 2, hypothyroidism, mood disorder, peripheral vascular disease status post bilateral below the knee amputations in 2019, hyperlipidemia, hypertension, chronic kidney disease stage III, Singh's palsy, and giant cell arteritis status post temporal artery biopsy by Dr. Weinstein on 12/24/2021-on prednisone. He resides at [facility] past 3 months. He presented to [facility] on December 30, 2021 due to a sudden onset of alteredmental status and shortness of breath. At [facility], he was noted to have acute kidney injury with creatinine 2.3 and elevated troponin at 3577. EKG revealed normal sinus rhythm without evidenceof ST elevation or depression. Negative for COVID-19 at [facility]. He was transferred to [facility] for further evaluation. Echocardiogram on December 30, 2021 revealed an EF of 45 to 50% and mild MR. Cardiac catheterization completed showing multivessel disease.Cardiothoracic surgery hasprice consulted for possible surgical myocardial vascularization. Endocrine consult placed by CTS for diabetic management. Longstanding type II diabetic with A1c of 8.4%. Currently residing at [facility] with orders in place for Humalog 32 units with lunch and supper, Toujeo 70 units nightly, sliding scale 3 to 12 units with meals and at bedtime. History of CKD. GFR 46 here today. QUIN initially on presentation to [facility]. Nephrology is following here this admission. D/w patient risk for labile BG related to altered renal function. Encouraged protein-based snack at bedtime. History of hyperlipidemia noted. Total cholesterol 129, triglycerides 152, HDL 24, LDL is 75. Continue on Lipitor 40 mg daily inpatient. History of hypothyroidism on levothyroxine 50 mcg daily. TSH within range 3.091. On chronic prednisone 10 mg daily for giant cell arteritis. Continue on the same inpatient. Exhibits knowledge deficit regarding diabetic care. Consult dietitian as well as diabetic Ed. Change diet to ADA diet while inpatient. No current diabetic orders are in place per the primary team. Add 2-18 sliding scale with meals andat bedtime. Dose with Lantus 25 units x 1 this morning. Plan for Metformin post-op. SGLT2 should also be initiated. Consider GLP use OP. Discussed plan of care with Dr. Dumas and she is agreeable. Thank you for this consult, we will continue to follow while inpatient. 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 HLD (hyperlipidemia) HTN (hypertension) Hypothyroid Mood disorder NSTEMI (non-ST elevated myocardial infarction) PVD (peripheral vascular disease) Historical No qualifying data Procedure/Surgical History Amputation: 2020 Catheter: 2020 Amputation: 2020 None Medications Inpatient aspirin, 81 mg= 1 tab(s), Oral, Daily citalopram, 10 mg= 1 tab(s), Oral, qAM DuoNeb, 3 mL, Inhalation, q4hRT, PRN Heparin 10,000 units/mL heparin 25,000 unit(s) + Dextrose 5% Premix Diluent 250 mL Heparin HBW CARDIAC Bolus 5000 units/mL, 4000 unit(s)= 0.8 mL, 60 unit(s)/kg, IV Push, q6h, PRN HumaLOG 100 units/mL subcutaneous solution, Give 2-18 units/dose, Subcutaneous, achs isosorbide mononitrate 30 mg oral tablet, extended release, 30 mg= 1 tab(s), Oral, qAM labetalol, 10 mg= 2 mL, IV Push, q20min, PRN Lantus, 25 unit(s)= 0.25 mL, Subcutaneous (INT), now levothyroxine, 50 mcg= 1 tab(s), Oral, qAM Lipitor, 40 mg= 1 tab(s), Oral, qDay melatonin, 3 mg= 1 tab(s), Oral, qHS, PRN metoprolol succinate 50 mg oral TABLET extended release, 50 mg= 1 tab(s), Oral, qDay mupirocin 2% topical ointment, 1 femi, Nostril, each, BID NO METFORMIN (Glucophage) X 48hrs-patient has received contrast, 1 EA, Miscellaneous, Unscheduled No prasugrel (Effient) 7 days before surgery, 1 EA, Miscellaneous, Daily No Vitamin E,clopidogrel (Plavix), 5 days before surgery, 1 EA, Miscellaneous, Daily Normal Saline 1,000 mL, 1000 mL, Intravenous predniSONE, 10 mg= 1 tab(s), Oral, qDay Home amiodarone 200 mg oral tablet, 200 mg= 1 tab(s), Oral, qAM, Investigating citalopram 10 mg oral tablet, 10 mg= 1 tab(s), Oral, qAM Eliquis 5 mg oral tablet, 5 mg= 1 tab(s), Oral, BID, Investigating HumaLOG 100 units/mL injectable solution VIAL, 50 unit(s), Subcutaneous, TID isosorbide mononitrate 30 mg oral tablet, extended release, 15 mg= 0.5 tab(s), Oral, qAM levothyroxine 50 mcg (0.05 mg) oral tablet, 50 mcg= 1 tab(s), Oral, qAM Lipitor, 20 mg, Oral, qDay lisinopril, 20 mg, Oral, qDay metoprolol succinate 50 mg oral TABLET extended release, 50 mg= 1 tab(s), Oral, qDay predniSONE 10 mg oral tablet, 10 mg= 1 tab(s), Oral, qDay Toujeo Max SoloStar 300 units/mL subcutaneous solution, 100 unit(s), Subcutaneous, qHS, Investigating Allergies NKA Social History Alcohol Use: Current. Type: Beer. Frequency: 1-2 times per year., 07/12/2021 Nutrition/Health Type of diet: Regular, Diabetic. Appetite Good. Eating Difficulties None, full set of dentures., 07/12/2021 Substance Abuse Use: Never., 07/12/2021 Tobacco Nicotine Use: Former smoker, quit more than 30 days ago. Type: Cigarettes. Stopped at age: 55 Years., 07/12/2021 Immunizations SARS-CoV-2 (COVID-19) mRNA-1273 vaccine: 0.3 unknown unit (05/21/21) SARS-CoV-2 (COVID-19) mRNA-1273 vaccine: 0 unknown unit (10/13/20) SARS-CoV-2 (COVID-19) mRNA-1273 vaccine: 0 unknown unit (09/15/20) Digitally Signed by CASPER MURRY on 01/01/2022 03:38 PM [id number] Nephrology Progress note Date of Service 01/01/2022 Chief Complaint Chest pain/shortness of breath. Subjective Patient is lying comfortably in bed. Denies any chest pain or shortness of breath at present. He had cardiac catheterization yesterday which showed multivessel CAD. CT surgery has been consulted. Urine output of more than 1200 mL over 24 hours. Received 1 L NS post cardiac catheterization. Objective Vitals and Measurements T: 36.6 C (Oral) TMIN: 36.4 C (Oral) TMAX: 36.7 C (Oral) HR: 88(Apical) RR: 18 BP: 156/78 SpO2: 96% Physical Exam HEENT: PERRLA, Respiratory: Bilateral air entry is present, clear to auscultation Cardiovascular: S1-S2 present, no rub Abdomen: Obese, soft, NT, BS present Extremities: Bilateral BKA noted Lab Results 01/01 03:10 WBC: 10.0 Hgb: 12.4 L Hct: 37.2 L Platelet: 289 Neutrophil %: 72.9 Glucose Level: 180 H Sodium Level: 141 Potassium Level: 4.2 BUN: 32.0 H Creatinine Lvl (s): 1.48 H CO2: 22 Calcium: 9.0 Magnesium: 1.8 12/31 06:42 WBC: 11.9 H Hgb: 12.4 L Hct: 36.8 L Platelet: 274 Neutrophil %: 68.1 Glucose Level: 105 Sodium Level: 142 Potassium Level: 4.1 BUN: 35.0 H Creatinine Lvl (s): 1.55 H Assessment/Plan Non-oliguric QUIN on stage III CKD: QUIN resolved, creatinine below baseline, stable 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 Patient is cleared from renal standpoint with mild risk for possible CT surgery. Discussed with patient. Labs in AM. Will follow. Digitally Signed by TAMIKA RODAS MD on 01/01/2022 09:57 AM [id number] Nephrology Progress note Date of Service 01/01/2022 Chief Complaint Chest pain/shortness of breath. Subjective Patient is lying comfortably in bed. Denies any chest pain or shortness of breath at present. He had cardiac catheterization yesterday which showed multivessel CAD. CT surgery has been consulted. Urine output of more than 1200 mL over 24 hours. Received 1 L NS post cardiac catheterization. Objective Vitals and Measurements T: 36.6 C (Oral) TMIN: 36.4 C (Oral) TMAX: 36.7 C (Oral) HR: 88(Apical) RR: 18 BP: 156/78 SpO2: 96% Physical Exam HEENT: PERRLA, Respiratory: Bilateral air entry is present, clear to auscultation Cardiovascular: S1-S2 present, no rub Abdomen: Obese, soft, NT, BS present Extremities: Bilateral BKA noted Lab Results 01/01 03:10 WBC: 10.0 Hgb: 12.4 L Hct: 37.2 L Platelet: 289 Neutrophil %: 72.9 Glucose Level: 180 H Sodium Level: 141 Potassium Level: 4.2 BUN: 32.0 H Creatinine Lvl (s): 1.48 H CO2: 22 Calcium: 9.0 Magnesium: 1.8 12/31 06:42 WBC: 11.9 H Hgb: 12.4 L Hct: 36.8 L Platelet: 274 Neutrophil %: 68.1 Glucose Level: 105 Sodium Level: 142 Potassium Level: 4.1 BUN: 35.0 H Creatinine Lvl (s): 1.55 H Assessment/Plan Non-oliguric QUIN on stage III CKD: QUIN resolved, creatinine below baseline, stable 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 Patient is cleared from renal standpoint with mild risk for possible CT surgery. Discussed with patient. Labs in AM. Will follow. Digitally Signed by TAMIKA RODAS MD on 01/01/2022 09:57 AM [id number] Cardiothoracic surgery Consult note Date of Service 12/31/2021 Reason for Consultation Evaluation for CABG Referring Physician Dr. Barrera History of Present Illness This is a split/shared visit with Dr. Hernandez. 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 Weinstein on 12/24/2021-on prednison. He resides at [facility] for the past 3 months. He presented to [facility] on December 30, 2021 due to a sudden onset of altered mental status and shortness of breath. He endorses nonproductive cough. Denied any chest pain or syncope. At [facility], he was noted to have acute kidney injury with creatinine 2.3 and elevated troponinat 3577. EKG revealed normal sinus rhythm without evidence of ST elevation or depression. Negative for COVID-19 at [facility]. He was transferred to [facility] for further evaluation. Echocardiogram on December 30, 2021 revealed an EF of 45 to 50% and mild MR. Cardiac catheterization completed earlier today showing multivessel disease (official cath report pending at the time of this dictation). Cardiothoracic surgery has been consulted for possible surgical myocardial vascularization. Eliquis was discontinued per alf reports on September 01, 2021. Patient is currently on heparin by weight drip. STS gross assessment for CABG: Risk of Mortality: 4.408% Renal Failure: 6.161% Permanent Stroke: 1.921% Prolonged Ventilation: 9.743% DSW Infection: 0.460% Reoperation: 1.979% Morbidity or Mortality: 16.743% Short Length of Stay: 23.071% Long Length of Stay: 12.163% Review of Systems Constitutional: Denies fever, chills, weight loss, weight gain HEENT: Edentulous with upper and lower dentures; denies dysphagia, hearing loss, headaches Respiratory: See HPI CV: See HPI Vascular: Denies nonhealing ulcers, DVTs GI: Denies nausea, vomiting, constipation, diarrhea : Denies dysuria, hematuria, urinary incontinence Neuro: Reports generalized weakness; denies numbness or tingling Endo: Denies heat/cold intolerance, hair loss, polyuria Heme/oncology: Denies bleeding, bruising, lymphadenopathy Muscular/skeletal: Denies arthralgia, back pain Psych: Denies anxious, nervousness, suicidal ideations Physical Exam Vitals and Measurements T: 36.6 C (Oral) TMIN: 36.4 C (Oral) TMAX: 36.8 C (Oral) HR: 59(Monitored) RR: 18 BP: 187/69 SpO2: 93% Weight Dosing Weight: 103.1 kg (12/30/21) Constitutional: Alert, oriented x3, appropriate HEENT: Normocephalic, atraumatic, PERRLA +2 mm brisk bilaterally, neck supple, negative JVD, no carotid bruit, edentulous Lungs: Unlabored respirations, lung rios diminished bilaterally, SPO2 93 to 95% on room air Heart: Normal sinus rhythm/bradycardia, S1-S2, no murmur or rub, heart rate ranging 57-63 Abdomen: Soft, nontender, bowel sounds present Extremities: Bilateral below the knee amputations, no edema, palpable bilateral popliteal pulses, bilateral femoral pulses +2 Integumentary: Intact, no rashes, scattered scabbed area of bilateral below the knee amputation stumps Neuro: Cranial nerves II through VIII intact Lab Results 12/31 06:42 WBC: 11.9 H Hgb: 12.4 L Hct: 36.8 L Platelet: 274 Neutrophil %: 68.1 Glucose Level: 105 Sodium Level: 142 Potassium Level: 4.1 BUN: 35.0 H Creatinine Lvl (s): 1.55 H 12/30 07:25 WBC: 11.9 H Hgb: 12.5 L Hct: 37.7 L Platelet: 277 Neutrophil %: 71.5 Protime: 12.4 PT International Ratio: 1.0 Glucose Level: 58 L Sodium Level: 148 H Potassium Level: 3.8 BUN: 48.0 H Creatinine Lvl (s): 1.95 H Imaging Results and Diagnostics Summary: 1. Left ventricle: The cavity size is normal. Wall thickness is severely increased. Concentric LeftVentricular Hypertrophy Systolic function is mildly reduced. The estimated ejection fraction is 45-50%. There is mild diffuse hypokinesis. Possible mild hypokinesis of the mid-apical inferolateral and apical myocardium. Grade II diastolicdysfunction. 2. Ventricular septum: Thickness is severely increased. 3. Mitral valve: The annulus is mildly calcified. The leaflets are mildly thickened. There is mild regurgitation. 4. Left atrium: The atrium is moderately dilated. [1] Assessment/Plan 1. CAD (coronary artery disease) EF 45-50% Surgical work-up in process. Surgical evaluation pending by Dr. Hernandez. 2. NSTEMI (non-ST elevated myocardial infarction) On heparin by weight 3. QUIN (acute kidney injury) Followed by nephrology. BUN and creatinine currently 35 and 1.55. 4. CKD (chronic kidney disease), stage III Unknown baseline. Patient follows with Dr. Montgomery of nephrology in [place]. 5. AF (paroxysmal atrial fibrillation) Currently in normal sinus rhythm/sinus bradycardia. 6. Diabetes Hgb A1c 8.4% Consult inpatient endocrinology. 7. HTN (hypertension) On metoprolol and isosorbide mononitrate 8. HLD (hyperlipidemia) On atorvastatin 9. Hypothyroid Levothyroxine 10. Giant cell arteritis s/p temporal artery biopsy 12/24/2021 Follows with vascular surgery. On prednisone 11. PVD (peripheral vascular disease) s/p bilateral BKA 2019 12. Mood disorder Citalopram 13. History of Singh's palsy Approximately 45 minutes spent obtaining past medical history from EMR and transfer alf documentation, conducting [id number] visit with patient at bedside, and dictating details of today'svisit. 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 HLD (hyperlipidemia) HTN (hypertension) Hypothyroid Mood disorder NSTEMI (non-ST elevated myocardial infarction) PVD (peripheral vascular disease) Procedure/Surgical History Bilateral knee amputations 2019 Bilateral temporal artery biopsies 12/24/2021 Medications Inpatient aspirin, 81 mg= 1 tab(s), Oral, Daily citalopram, 10 mg= 1 tab(s), Oral, qAM DuoNeb, 3 mL, Inhalation, q4hRT, PRN Heparin 10,000 units/mL heparin 25,000 unit(s) + Dextrose 5% Premix Diluent 250 mL Heparin HBW CARDIAC Bolus 5000 units/mL, 4000 unit(s)= 0.8 mL, 60 unit(s)/kg, IV Push, q6h, PRN isosorbide mononitrate 30 mg oral tablet, extended release, 30 mg= 1 tab(s), Oral, qAM labetalol, 10 mg= 2 mL, IV Push, q20min, PRN levothyroxine, 50 mcg= 1 tab(s), Oral, qAM Lipitor, 40 mg= 1 tab(s), Oral, qDay melatonin, 3 mg= 1 tab(s), Oral, qHS, PRN metoprolol succinate 50 mg oral TABLET extended release, 50 mg= 1 tab(s), Oral, qDay NO METFORMIN (Glucophage) X 48hrs-patient has received contrast, 1 EA, Miscellaneous, Unscheduled Normal Saline 1,000 mL, 1000 mL, Intravenous predniSONE, 10 mg= 1 tab(s), Oral, qDay Home amiodarone 200 mg oral tablet, 200 mg= 1 tab(s), Oral, qAM, Investigating citalopram 10 mg oral tablet, 10 mg= 1 tab(s), Oral, qAM Eliquis 5 mg oral tablet, 5 mg= 1 tab(s), Oral, BID, Investigating HumaLOG 100 units/mL injectable solution VIAL, 50 unit(s), Subcutaneous, TID isosorbide mononitrate 30 mg oral tablet, extended release, 15 mg= 0.5 tab(s), Oral, qAM levothyroxine 50 mcg (0.05 mg) oral tablet, 50 mcg= 1 tab(s), Oral, qAM Lipitor, 20 mg, Oral, qDay lisinopril, 20 mg, Oral, qDay metoprolol succinate 50 mg oral TABLET extended release, 50 mg= 1 tab(s), Oral, qDay predniSONE 10 mg oral tablet, 10 mg= 1 tab(s), Oral, qDay Toujeo Max SoloStar 300 units/mL subcutaneous solution, 100 unit(s), Subcutaneous, qHS, Investigating Allergies NKA Social History Tobacco use: Former user, quit 40 years ago Alcohol use: Occasional Illicit drug use: Patient denies Living arrangements: Currently lives at [address] however lived at home prior to Ambulatory aids: Motorized scooter, has bilateral leg prosthesis however states that these are painful to use Family History 2 living children, healthy Patient unable to recall health history of parents which are both . Immunizations SARS-CoV-2 (COVID-19) mRNA-1273 vaccine: 0.3 unknown unit (05/21/21) SARS-CoV-2 (COVID-19) mRNA-1273 vaccine: 0 unknown unit (10/13/20) SARS-CoV-2 (COVID-19) mRNA-1273 vaccine: 0 unknown unit (09/15/20) [1] Echocardiogram, Adult - CV; Len Lucio 12/30/2021 17:21 EDT Digitally Signed by YIMI NEWELL on 12/31/2021 05:21 PM [id number] Nephrology Progress note Date of Service 12/31/2021 Chief Complaint No new complaints. Subjective Patient is lying comfortably in bed. Denies any chest pain or shortness of breath at present. Had some mild shortness of breath earlier in the morning which has now resolved. Urine output of 1650 mL over 24 hours. Denies any dizziness or lightheadedness. Remains on heparin drip. Objective Vitals and Measurements T: 36.7 C (Oral) TMIN: 36.4 C (Oral) TMAX: 36.8 C (Oral) HR: 63(Monitored) RR: 18 BP: 136/72 SpO2: 95% Physical Exam HEENT: PERRLA, Respiratory: Bilateral air entry is present, clear to auscultation Cardiovascular: S1-S2 present, no rub Abdomen: Obese, soft, NT, BS present Extremities: Bilateral BKA noted Lab Results 12/31 06:42 WBC: 11.9 H Hgb: 12.4 L Hct: 36.8 L Platelet: 274 Neutrophil %: 68.1 Glucose Level: 105 Sodium Level: 142 Potassium Level: 4.1 BUN: 35.0 H Creatinine Lvl (s): 1.55 H CO2: 24 Calcium: 9.5 Urine analysis showed clear urine with specific gravity 1.020, protein 100 mg/dL, no blood, no RBCs 12/30 07:25 WBC: 11.9 H Hgb: 12.5 L Hct: 37.7 L Platelet: 277 Neutrophil %: 71.5 Protime: 12.4 PT International Ratio: 1.0 Glucose Level: 58 L Sodium Level: 148 H Potassium Level: 3.8 BUN: 48.0 H Creatinine Lvl (s): 1.95 H Assessment/Plan Non-oliguric QUIN on stage III CKD: QUIN resolved, creatinine below baseline 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 Patient is cleared from renal standpoint for cardiac catheterization with mild moderate risk. I would recommend to give gentle hydration, NS at 50-75 mL per hour post cardiac catheterization. Labs in AM. Discussed with patient. Will follow. Digitally Signed by TAMIKA RODAS MD on 12/31/2021 11:26 AM [id number] Note ORIGINAL EXAMINATION: ONE XRAY VIEW OF THE CHEST 12/31/2021 8:08 am COMPARISON: None. HISTORY: ORDERING SYSTEM PROVIDED HISTORY: Reason for Exam: dyspnea. Shortness of breath. FINDINGS: Heart size is within normal limits for projection. Atherosclerosis present of the thoracic aorta. There are diffuse interstitial opacities without florid vascular congestion. Streaky opacities are noted of the right lung base. No sizable pleural effusion or pneumothorax. Degenerative changes are seen of the spine. IMPRESSION: 1. Diffuse interstitial opacities/interstitial prominence may reflect a chronic etiology, however an atypical infectious process is difficult to exclude. Correlate clinically. 2. Mild right basilar subsegmental atelectasis. Interpreted by: Sj Mantilla DO Preliminary Report By: Sj Mantilla DO Electronically signed By Sj Mantilla DO Dictated Date: 12/31/2021 8:11:38 AM Prelim Date: 12/31/2021 8:13:17 AM Sign Date: 12/31/2021 8:13:17 AM Ordering Provider: [facility]07-14-2022 History and physical note Date of Service 12/30/2021 Chief Complaint chest pain History of Present Illness This is a 81-year-old male, alf resident with prior history of atrial fibrillation, type 2diabetes, hypothyroidism, mood disorder, bilateral BKA's, hyperlipidemia who presented to due toaltered mental status. He was there diagnosed with non-ST elevation NJ with troponin elevation of 3000 and uptrending. Patient also had an QUIN with creatinine 2.3. Currently patient denies any chestpain or palpitations. He denies prior history of coronary artery disease. However on further questioning does endorse he may have had a left heart catheterization at [facility] 1 year ago. Patient roseann poor historian and does not remember his medications. Review of Systems 12 point ROS reviewed and negative unless stated above. Physical Exam Vitals and Measurements T: 36.8 C (Oral) HR: 88(Monitored) RR: 22 BP: 168/90 SpO2: 94% WT: 103.1 kg Weight Dosing Weight: 103.1 kg (12/30/21) General Appearance: in no acute distress. Alert. EENT: No thyroid disease. ocular movements intact Cardiac: RRR. S1 and S2. no murmurs or rubs. Lungs: Clear breath sounds. No wheeze or crackles noted. Abdomen: soft. non tender. bowel sounds audible Musculoskeletal: strength and sensation intact Neurological: alert and oriented. Skin: warm. dry. BKA noted Lab Results No 36 Hour Lab Data Assessment/Plan Non-ST elevation NJ ? history of atrial fibrillation on Eliquis, amiodarone Type 2 diabetes Hypothyroidism Mood disorder Bilateral BKA Hyperlipidemia Regarding NSTEMI continue to trend his troponin levels. We will continue aspirin statin and heparindrip. We will send risk stratification labs. Monitor on telemetry. We will order echocardiogram. With prior history of diabetes and peripheral vascular disease there is concern that patient may have multivessel CAD. However we will hold off on left heart catheterization today until creatinine is improved. We will also discussed with family members about risk of pursuing left heart catheterizationin light of his QUIN. We will hold all nephrotoxic agents. We will consult nephrology for optimization. Patient has history of atrial fibrillation but per alf has not been on his Eliquis or amiodarone. We will for now discontinue amiodarone and continue with metoprolol. Continue heparin for anticoagulation. Continue home medications for chronic medical issues. Problem List/Past Medical History Ongoing No qualifying data Historical No qualifying data Procedure/Surgical History Amputation: 2020 Catheter: 2020 Amputation: 2020 None Medications Home Medications (11) Active amiodarone 200 mg oral tablet 200 mg = 1 tab(s), Oral, qAM citalopram 10 mg oral tablet 10 mg = 1 tab(s), Oral, qAM Eliquis 5 mg oral tablet 5 mg = 1 tab(s), Oral, BID HumaLOG 100 units/mL injectable solution VIAL 50 unit(s), Subcutaneous, TID isosorbide mononitrate 30 mg oral tablet, extended release 15 mg = 0.5 tab(s), Oral, qAM levothyroxine 50 mcg (0.05 mg) oral tablet 50 mcg = 1 tab(s), Oral, qAM Lipitor 20 mg, Oral, qDay lisinopril 20 mg, Oral, qDay metoprolol succinate 50 mg oral TABLET extended release 50 mg = 1 tab(s), Oral, qDay predniSONE 10 mg oral tablet 30 mg = 3 tab(s), Oral, qDay Toujeo Max SoloStar 300 units/mL subcutaneous solution 100 unit(s), Subcutaneous, qHS Allergies NKA Social History Alcohol Use: Current. Type: Beer. Frequency: 1-2 times per year., 07/12/2021 Nutrition/Health Type of diet: Regular, Diabetic. Appetite Good. Eating Difficulties None, full set of dentures., 07/12/2021 Substance Abuse Use: Never., 07/12/2021 Tobacco Nicotine Use: Former smoker, quit more than 30 days ago. Type: Cigarettes. Stopped at age: 55 Years., 07/12/2021 Immunizations SARS-CoV-2 (COVID-19) mRNA-1273 vaccine: 0.3 unknown unit (05/21/21) SARS-CoV-2 (COVID-19) mRNA-1273 vaccine: 0 unknown unit (10/13/20) SARS-CoV-2 (COVID-19) mRNA-1273 vaccine: 0 unknown unit (09/15/20) Code Status Code Status - Ordered -- 12/30/21 6:48:00 EDT, Full Code, Constant Order Digitally Signed by HASEEB DE LEÓN MD on 12/30/2021 10:03 AM [id number] Evaluation + Plan noteExtracted from: Title:History and Physical Author:HASEEB DE LEÓN MD Date:12/30/21 Non-ST elevation NJ ? history of atrial fibrillation on Eliquis, amiodarone Type 2 diabetes Hypothyroidism Mood disorder Bilateral BKA Hyperlipidemia Regarding NSTEMI continue to trend his troponin levels. We will continue aspirin statin and heparin drip. We will send risk stratification labs. Monitor on telemetry. We will order echocardiogram. With prior history of diabetes and peripheral vascular disease there is concern that patient may have multivessel CAD. However we will hold off on left heart catheterization today until creatinine is improved. We will also discussed with family members about risk of pursuing left heart catheterization in light of his QUIN. We will hold all nephrotoxic agents. We will consult nephrology for optimization. Patient has history of atrial fibrillation but per alf has not been on his Eliquis or amiodarone. We will for now discontinue amiodarone and continue with metoprolol. Continue heparin for anticoagulation. Continue home medications for chronic medical issues. Addendum by KARL HIDALGO MD on December 30, 2021 22:57:15 EDT I have personally seen, examined, and evaluated the patient on the encounter date. I have reviewed the fellow s documentation and agree with the fellow s findings and plan as documented, unless otherwise stated. Future Appointments Appointment Date:01/17/2022 01:00:00 PM Scheduled Provider:HUNTER FALCON Location:[facility] Appointment Type:[facility] Post Op Appointment Date:02/15/2022 10:00:00 AM Scheduled Provider: Location:[facility] Appointment Type:CV OV Hospital Follow Up [facility] 07-14-2022 Nephrology Consult note Date of Service 12/30/2021 Reason for Consultation Stage III CKD, needs clearance for cardiac catheterization. Referring Physician Dr. Hidalgo. History of Present Illness Mr. Modi is a very pleasant 81-year-old gentleman with past medical history of hypertension, diabetes, atrial fibrillation on anticoagulation, hypothyroidism who is a resident of nursing facility in [place]. Patient was sent to [facility] due to altered mental status. He was also having chest pain. Initial lab work done at [facility] showed elevated troponin in the range of 3000.Patient was diagnosed with acute non-STEMI. He was transferred to [facility] for further management. He also had acute renal failure with creatinine of around 2.3 at ER. Repeat blood work in [place] showed that his creatinine has improved to 1.9. Patient does have history of CKD and follows with Dr. Montgomery in [place]. Dr. Montgomery does not have privileges at [facility]. Renal consultation was requested for acute renal failure on CKD stage III and clearance for cardiaccatheterization Review of Systems A detailed 10 point review of systems is obtained including constitutional, HEENT, respiratory, cardiovascular, gastrointestinal, genital, musculoskeletal, skin, neurological, psychological, endocrine and hematological. Most of the review of systems is as stated in history of present illness. At present patient is lying comfortably in bed. He is not on any oxygen. He denies any chest pain at present. He denies any shortness of breath. He complains of occasional dizziness, likely due to vertigo.He denies any nausea, vomiting, diarrhea, abdominal pain. He has been at alf in [place] from July 2021. Per family he is going to be at the alf long-term. Patient developed c hest pain and altered mental status at alf for which he was sent to ER. Over there he was diagnosed with acute non-STEMI with elevated troponin levels and eventually transferred to [facility]. His home medication list includes JERO inhibitor. He was not on any NSAIDs at the nursingfacility. Review of all other systems is negative. Physical Exam Vitals and Measurements T: 36.8 C (Oral) HR: 61(Monitored) RR: 22 BP: 136/77 SpO2: 94% WT: 103.1 kg Weight Dosing Weight: 103.1 kg (12/30/21) Urine output: Not recorded HEENT: PERRLA, no pallor Neck: No JVD Respite: Bilateral air entry is present, clear to auscultation Cardiovascular: S1-S2 present, no rub Abdomen: Obese, soft, NT, BS present Genitourinary: No bladder fullness appreciated Extremities: Bilateral BKA noted Neurological: Awake and responds to verbal commands, no asterixis Psychological: Alert oriented x3 Musculoskeletal: No joint swelling, tenderness, redness Skin: No ulcerations Lab Results 12/30 07:25 WBC: 11.9 H Hgb: 12.5 L Hct: 37.7 L Platelet: 277 Neutrophil %: 71.5 Protime: 12.4 PT International Ratio: 1.0 Glucose Level: 58 L Sodium Level: 148 H Potassium Level: 3.8 BUN: 48.0 H Creatinine Lvl (s): 1.95 H CO2: 24 Calcium: 9.2 Magnesium: 1.4 Phosphorus: 4.2 Troponin: 3395 Assessment/Plan 1. Non-oliguric QUIN on stage III CKD: QUIN resolving. Unknown baseline creatinine but patient is aware of stage III CKD 2. Acute non-STEMI: On heparin drip 3. Mild hypernatremia: Due to free water deficit 4. Hypomagnesemia: Replete 5. Hypertension: BP acceptable 6. Diabetes 7. Atrial fibrillation: On heparin drip Continue with current management. Check urine analysis. Replete magnesium. Patient is cleared from renal standpoint for cardiac catheterization with mild to moderate risk. I would recommend to give gentle hydration, NS at 50-75 mL/h postcardiac catheterization. Labs in AM. Discussed with patient and daughter at bedside at length about the possible reason for his QUIN on CKD. Also discussed the possibility of contrast-induced nephropathy. Will closely follow the patient while he is in the hospital. Thank you much for your consultation and allowing me to participate in Mr. Modi's care. Problem List/Past Medical History Hypertension Diabetes Hypothyroidism History of sepsis and acute renal failure requiring temporary dialysis few years ago CKD stage III with unknown baseline creatinine, follows with Dr. Montgomery in [place] Hyperlipidemia Atrial fibrillation Procedure/Surgical History Cardiac catheterization Bilateral BKA Dialysis catheter placement and removal Medications Inpatient aspirin, 81 mg= 1 tab(s), Oral, Daily citalopram, 10 mg= 1 tab(s), Oral, qAM DuoNeb, 3 mL, Inhalation, q4hRT, PRN Heparin 10,000 units/mL heparin 25,000 unit(s) + Dextrose 5% Premix Diluent 250 mL Heparin HBW CARDIAC Bolus 5000 units/mL, 4000 unit(s)= 0.8 mL, 60 unit(s)/kg, IV Push, q6h, PRN isosorbide mononitrate 30 mg oral tablet, extended release, 15 mg= 0.5 tab(s), Oral, qAM levothyroxine, 50 mcg= 1 tab(s), Oral, qAM Lipitor, 20 mg= 1 tab(s), Oral, qDay melatonin, 3 mg= 1 tab(s), Oral, qHS, PRN metoprolol succinate 50 mg oral TABLET extended release, 50 mg= 1 tab(s), Oral, qDay Home amiodarone 200 mg oral tablet, 200 mg= 1 tab(s), Oral, qAM, Investigating citalopram 10 mg oral tablet, 10 mg= 1 tab(s), Oral, qAM Eliquis 5 mg oral tablet, 5 mg= 1 tab(s), Oral, BID, Investigating HumaLOG 100 units/mL injectable solution VIAL, 50 unit(s), Subcutaneous, TID isosorbide mononitrate 30 mg oral tablet, extended release, 15 mg= 0.5 tab(s), Oral, qAM levothyroxine 50 mcg (0.05 mg) oral tablet, 50 mcg= 1 tab(s), Oral, qAM Lipitor, 20 mg, Oral, qDay lisinopril, 20 mg, Oral, qDay metoprolol succinate 50 mg oral TABLET extended release, 50 mg= 1 tab(s), Oral, qDay predniSONE 10 mg oral tablet, 30 mg= 3 tab(s), Oral, qDay [employer] SoloStar 300 units/mL subcutaneous solution, 100 unit(s), Subcutaneous, qHS, Investigating Allergies NKA Social History Alcohol Use: Current. Type: Beer. Frequency: 1-2 times per year., 07/12/2021 Nutrition/Health Type of diet: Regular, Diabetic. Appetite Good. Eating Difficulties None, full set of dentures., 07/12/2021 Substance Abuse Use: Never., 07/12/2021 Tobacco Nicotine Use: Former smoker, quit more than 30 days ago. Type: Cigarettes. Stopped at age: 55 Years., 07/12/2021 Immunizations SARS-CoV-2 (COVID-19) mRNA-1273 vaccine: 0.3 unknown unit (05/21/21) SARS-CoV-2 (COVID-19) mRNA-1273 vaccine: 0 unknown unit (10/13/20) SARS-CoV-2 (COVID-19) mRNA-1273 vaccine: 0 unknown unit (09/15/20) Digitally Signed by TAMIKA RODAS MD on 12/30/2021 11:57 AM [id number] History and physical note Date of Service 12/30/2021 Chief Complaint chest pain History of Present Illness This is a 81-year-old male, alf resident with prior history of atrial fibrillation, type 2diabetes, hypothyroidism, mood disorder, bilateral BKA's, hyperlipidemia who presented to due toaltered mental status. He was there diagnosed with non-ST elevation NJ with troponin elevation of 3000 and uptrending. Patient also had an QUIN with creatinine 2.3. Currently patient denies any chest pain or palpitations. He denies prior history of coronary artery disease. However on further questioning does endorse he may have had a left heart catheterization at [facility] 1 year ago. Patient is a poor historian and does not remember his medications. Review of Systems 12 point ROS reviewed and negative unless stated above. Physical Exam Vitals and Measurements T: 36.8 C (Oral) HR: 88(Monitored) RR: 22 BP: 168/90 SpO2: 94% WT: 103.1 kg Weight Dosing Weight: 103.1 kg (12/30/21) General Appearance: in no acute distress. Alert. EENT: No thyroid disease. ocular movements intact Cardiac: RRR. S1 and S2. no murmurs or rubs. Lungs: Clear breath sounds. No wheeze or crackles noted. Abdomen: soft. non tender. bowel sounds audible Musculoskeletal: strength and sensation intact Neurological: alert and oriented. Skin: warm. dry. BKA noted Lab Results No 36 Hour Lab Data Assessment/Plan Non-ST elevation NJ ? history of atrial fibrillation on Eliquis, amiodarone Type 2 diabetes Hypothyroidism Mood disorder Bilateral BKA Hyperlipidemia Regarding NSTEMI continue to trend his troponin levels. We will continue aspirin statin and heparindrip. We will send risk stratification labs. Monitor on telemetry. We will order echocardiogram. With prior history of diabetes and peripheral vascular disease there is concern that patient may have multivessel CAD. However we will hold off on left heart catheterization today until creatinine is improved. We will also discussed with family members about risk of pursuing left heart catheterizationin light of his QUIN. We will hold all nephrotoxic agents. We will consult nephrology for optimization. Patient has history of atrial fibrillation but per alf has not been on his Eliquis or amiodarone. We will for now discontinue amiodarone and continue with metoprolol. Continue heparin for anticoagulation. Continue home medications for chronic medical issues. Problem List/Past Medical History Ongoing No qualifying data Historical No qualifying data Procedure/Surgical History Amputation: 2020 Catheter: 2020 Amputation: 2020 None Medications Home Medications (11) Active amiodarone 200 mg oral tablet 200 mg = 1 tab(s), Oral, qAM citalopram 10 mg oral tablet 10 mg = 1 tab(s), Oral, qAM Eliquis 5 mg oral tablet 5 mg = 1 tab(s), Oral, BID HumaLOG 100 units/mL injectable solution VIAL 50 unit(s), Subcutaneous, TID isosorbide mononitrate 30 mg oral tablet, extended release 15 mg = 0.5 tab(s), Oral, qAM levothyroxine 50 mcg (0.05 mg) oral tablet 50 mcg = 1 tab(s), Oral, qAM Lipitor 20 mg, Oral, qDay lisinopril 20 mg, Oral, qDay metoprolol succinate 50 mg oral TABLET extended release 50 mg = 1 tab(s), Oral, qDay predniSONE 10 mg oral tablet 30 mg = 3 tab(s), Oral, qDay [employer] Max SoloStar 300 units/mL subcutaneous solution 100 unit(s), Subcutaneous, qHS Allergies NKA Social History Alcohol Use: Current. Type: Beer. Frequency: 1-2 times per year., 07/12/2021 Nutrition/Health Type of diet: Regular, Diabetic. Appetite Good. Eating Difficulties None, full set of dentures., 07/12/2021 Substance Abuse Use: Never., 07/12/2021 Tobacco Nicotine Use: Former smoker, quit more than 30 days ago. Type: Cigarettes. Stopped at age: 55 Years., 07/12/2021 Immunizations SARS-CoV-2 (COVID-19) mRNA-1273 vaccine: 0.3 unknown unit (05/21/21) SARS-CoV-2 (COVID-19) mRNA-1273 vaccine: 0 unknown unit (10/13/20) SARS-CoV-2 (COVID-19) mRNA-1273 vaccine: 0 unknown unit (09/15/20) Code Status Code Status - Ordered -- 12/30/21 6:48:00 EDT, Full Code, Constant Order Digitally Signed by HASEEB DE LEÓN MD on 12/30/2021 10:03 AM [id number] Discharge instructions Follow Up Care 12/30/2021 04:59:03 With:HUNTER FALCON APRN-NAIL ARTIST Address: [address] [place] [address] [address] [facility] [place] [address]- When:01/17/2022 13:30:00 Comments:please obtain a CXR 1 hour prior to your appt. With:Discharge to [facility] LOC [phone] Address:Unknown When:1-2 days With:KARL HIDALGO MD Address: [address] [facility] [address] [facility] [place] [address]- When:02/15/2022 10:00:00 With:Cardiac Rehab- [facility] Address: [facility] [address] [place] [address]- When: Unknown Comments:The Cardiac Rehab department will call you to schedule you for phase 2. We left you a brochure withinformation about cardiac rehab. If you have any questions please call [phone]. [facility] 08-24-2021 History of Present illness Narrative* Thu Roche RN - 02/09/2021 11:33 AM EDT Discharge instructions given to pt and livestock caretaker at bedside. All questions answered. All belongingsat bedside. VSS. Pt resting comfortably, denies pain * Thu Roche RN - 02/09/2021 11:17 AM EDT Report called to Leighann VALE at [facility] * Thu Roche RN - 02/09/2021 11:08 AM EDT assistant family teacher to bedside * Thu Roche RN - 02/09/2021 11:03 AM EDT Pt arrived to [facility]. Attached to health education coordinator. VSS. project construction assistant manager updated * Lindsey Morales RN - 02/09/2021 8:33 AM EDT Notified anesthesia blood sugar is 284 * Jazmín Burton RN - 02/05/2021 4:[address] Vicente's office called and stated pt should not hold Eliquis nor Aspirin before surgery. Will include on pre-op instructions for facility. documented in this [facility] Work Phone: Anesthesiology Consult note* LINN RICHARD DO: PERFORM, SIGN, VERIFY Event Display: Anesthesiology Consultation Authored Date: Patient: ELIZABETH MODI Age: 81 years Sex: Male : 1940 Associated Diagnoses: None Author: LINN RICHARD DO Postoperative Information Post Operative Info: Post op day: Post Anesthesia Care Unit. Patient location: PACU. Assessment Postanesthesia assessment Vitals: Vital signs from flowsheet : Vital Signs 01/07/2022 7:19 EDT Temperature Oral 36.7 DegC Heart Rate Monitored 80 bpm Respiratory Rate 18 br/min Systolic Blood Pressure NBP 150 mmHg HI Diastolic Blood Pressure NBP 70 mmHg Mean Arterial Pressure (NBP) 94 mmHg Reason For Taking VItal Signs Routine 01/07/2022 5:31 EDT Temperature Oral 36.5 DegC Heart Rate Monitored 80 bpm Respiratory Rate 18 br/min Systolic Blood Pressure NBP 146 mmHg HI Diastolic Blood Pressure NBP 76 mmHg Mean Arterial Pressure (NBP) 97 mmHg Reason For Taking VItal Signs Routine 01/07/2022 0:08 EDT Temperature Oral 36.6 DegC Heart Rate Monitored 80 bpm Respiratory Rate 18 br/min Systolic Blood Pressure NBP 138 mmHg Diastolic Blood Pressure NBP 79 mmHg Reason For Taking VItal Signs Routine 01/06/2022 21:11 EDT Heart Rate Monitored 80 bpm Systolic Blood Pressure NBP 138 mmHg Diastolic Blood Pressure NBP 67 mmHg Mean Arterial Pressure (NBP) 89 mmHg 01/06/2022 20:49 EDT Heart Rate Monitored 56 bpm LOW 01/06/2022 20:06 EDT Heart Rate Monitored 57 bpm LOW 01/06/2022 20:02 EDT Heart Rate Monitored 94 bpm Systolic Blood Pressure NBP 110 mmHg Diastolic Blood Pressure NBP 67 mmHg Mean Arterial Pressure (NBP) 75 mmHg 01/06/2022 19:45 EDT Heart Rate Monitored 98 bpm Systolic Blood Pressure NBP 97 mmHg Diastolic Blood Pressure NBP 64 mmHg Mean Arterial Pressure (NBP) 76 mmHg 01/06/2022 19:30 EDT Heart Rate Monitored 94 bpm Systolic Blood Pressure NBP 107 mmHg Diastolic Blood Pressure NBP 57 mmHg LOW Mean Arterial Pressure (NBP) 73 mmHg 01/06/2022 19:00 EDT Heart Rate Monitored 102 bpm HI Respiratory Rate 18 br/min Reason For Taking VItal Signs Routine 01/06/2022 17:37 EDT Heart Rate Monitored 61 bpm Systolic Blood Pressure NBP 132 mmHg Diastolic Blood Pressure NBP 70 mmHg Mean Arterial Pressure (NBP) 88 mmHg 01/06/2022 17:00 EDT Heart Rate Monitored 67 bpm Systolic Blood Pressure NBP 131 mmHg Diastolic Blood Pressure NBP 64 mmHg Mean Arterial Pressure (NBP) 83 mmHg 01/06/2022 16:00 EDT Heart Rate Monitored 61 bpm Systolic Blood Pressure NBP 121 mmHg Diastolic Blood Pressure NBP 63 mmHg Mean Arterial Pressure (NBP) 79 mmHg 01/06/2022 15:27 EDT Heart Rate Monitored 62 bpm Respiratory Rate 16 br/min Systolic Blood Pressure NBP 115 mmHg Diastolic Blood Pressure NBP 57 mmHg LOW Mean Arterial Pressure (NBP) 74 mmHg Reason For Taking VItal Signs Routine 01/06/2022 14:05 EDT Heart Rate Monitored 61 bpm 01/06/2022 14:00 EDT Heart Rate Monitored 62 bpm Systolic Blood Pressure NBP 113 mmHg Diastolic Blood Pressure NBP 56 mmHg LOW Mean Arterial Pressure (NBP) 74 mmHg 01/06/2022 13:05 EDT Heart Rate Monitored 64 bpm Systolic Blood Pressure NBP 106 mmHg Diastolic Blood Pressure NBP 58 mmHg LOW Mean Arterial Pressure (NBP) 72 mmHg 01/06/2022 12:10 EDT Heart Rate Monitored 65 bpm 01/06/2022 12:05 EDT Temperature Oral 36.7 DegC Heart Rate Monitored 67 bpm Respiratory Rate 16 br/min Systolic Blood Pressure NBP 101 mmHg Diastolic Blood Pressure NBP 54 mmHg LOW Mean Arterial Pressure (NBP) 68 mmHg Reason For Taking VItal Signs Routine 01/06/2022 9:26 EDT Heart Rate Monitored 63 bpm Respiratory Rate 16 br/min Systolic Blood Pressure NBP 105 mmHg Diastolic Blood Pressure NBP 61 mmHg Mean Arterial Pressure (NBP) 73 mmHg Systolic Blood Pressure Invasive 103 mmHg Diastolic Blood Pressure Invasive 45 mmHg <LLOW Mean Arterial Pressure (Line) 64 mmHg Reason For Taking VItal Signs Routine 01/06/2022 8:38 EDT Heart Rate Monitored 70 bpm Systolic Blood Pressure NBP 113 mmHg Diastolic Blood Pressure NBP 61 mmHg Mean Arterial Pressure (NBP) 76 mmHg Systolic Blood Pressure Invasive 107 mmHg Diastolic Blood Pressure Invasive 50 mmHg <LLOW Mean Arterial Pressure (Line) 69 mmHg Reason For Taking VItal Signs Routine 01/06/2022 7:40 EDT Heart Rate Monitored 65 bpm Systolic Blood Pressure Invasive 113 mmHg Diastolic Blood Pressure Invasive 45 mmHg <LLOW Mean Arterial Pressure (Line) 66 mmHg Reason For Taking VItal Signs Routine 01/06/2022 7:32 EDT Temperature Oral 36.8 DegC Heart Rate Monitored 66 bpm Respiratory Rate 16 br/min Systolic Blood Pressure NBP 107 mmHg Diastolic Blood Pressure NBP 58 mmHg LOW Mean Arterial Pressure (NBP) 74 mmHg Systolic Blood Pressure Invasive 112 mmHg Diastolic Blood Pressure Invasive 46 mmHg <LLOW Mean Arterial Pressure (Line) 67 mmHg Reason For Taking VItal Signs Routine 01/06/2022 7:27 EDT Heart Rate Monitored 65 bpm Systolic Blood Pressure NBP 111 mmHg Diastolic Blood Pressure NBP 58 mmHg LOW Mean Arterial Pressure (NBP) 75 mmHg Systolic Blood Pressure Invasive 114 mmHg Diastolic Blood Pressure Invasive 46 mmHg <LLOW Mean Arterial Pressure (Line) 68 mmHg Reason For Taking VItal Signs Routine 01/06/2022 7:00 EDT Heart Rate Monitored 65 bpm Systolic Blood Pressure NBP 122 mmHg Diastolic Blood Pressure NBP 55 mmHg LOW Mean Arterial Pressure (NBP) 76 mmHg Systolic Blood Pressure Invasive 129 mmHg Diastolic Blood Pressure Invasive 49 mmHg <LLOW Mean Arterial Pressure (Line) 73 mmHg Reason For Taking VItal Signs Routine 01/06/2022 6:21 EDT Heart Rate Monitored 80 bpm Systolic Blood Pressure NBP 139 mmHg Diastolic Blood Pressure NBP 58 mmHg LOW Mean Arterial Pressure (NBP) 83 mmHg Systolic Blood Pressure Invasive 139 mmHg Diastolic Blood Pressure Invasive 55 mmHg LOW Mean Arterial Pressure (Line) 83 mmHg Reason For Taking VItal Signs Routine 01/06/2022 6:00 EDT Heart Rate Monitored 80 bpm Systolic Blood Pressure NBP 118 mmHg Diastolic Blood Pressure NBP 68 mmHg Mean Arterial Pressure (NBP) 85 mmHg Systolic Blood Pressure Invasive 153 mmHg HI Diastolic Blood Pressure Invasive 64 mmHg Mean Arterial Pressure (Line) 95 mmHg Reason For Taking VItal Signs Routine 01/06/2022 5:35 EDT Heart Rate Monitored 80 bpm Respiratory Rate 16 br/min Systolic Blood Pressure Invasive 148 mmHg HI Diastolic Blood Pressure Invasive 58 mmHg LOW Mean Arterial Pressure (Line) 89 mmHg Reason For Taking VItal Signs Routine 01/06/2022 5:31 EDT Heart Rate Monitored 80 bpm Respiratory Rate 18 br/min Systolic Blood Pressure NBP 136 mmHg Diastolic Blood Pressure NBP 67 mmHg Mean Arterial Pressure (NBP) 88 mmHg Systolic Blood Pressure Invasive 148 mmHg HI Diastolic Blood Pressure Invasive 59 mmHg LOW Mean Arterial Pressure (Line) 89 mmHg Reason For Taking VItal Signs Routine 01/06/2022 4:59 EDT Heart Rate Monitored 80 bpm Systolic Blood Pressure Invasive 149 mmHg HI Diastolic Blood Pressure Invasive 58 mmHg LOW Mean Arterial Pressure (Line) 91 mmHg Reason For Taking VItal Signs Routine 01/06/2022 4:56 EDT Heart Rate Monitored 80 bpm Systolic Blood Pressure Invasive 149 mmHg HI Diastolic Blood Pressure Invasive 62 mmHg Mean Arterial Pressure (Line) 98 mmHg Reason For Taking VItal Signs Routine 01/06/2022 4:00 EDT Heart Rate Monitored 80 bpm Systolic Blood Pressure Invasive 145 mmHg HI Diastolic Blood Pressure Invasive 56 mmHg LOW Mean Arterial Pressure (Line) 88 mmHg Reason For Taking VItal Signs Routine 01/06/2022 3:30 EDT Temperature Oral 36.7 DegC Heart Rate Monitored 80 bpm Respiratory Rate 16 br/min Systolic Blood Pressure Invasive 144 mmHg HI Diastolic Blood Pressure Invasive 56 mmHg LOW Mean Arterial Pressure (Line) 87 mmHg Reason For Taking VItal Signs Routine 01/06/2022 3:00 EDT Heart Rate Monitored 80 bpm Systolic Blood Pressure Invasive 134 mmHg Diastolic Blood Pressure Invasive 54 mmHg LOW Mean Arterial Pressure (Line) 81 mmHg Reason For Taking VItal Signs Routine 01/06/2022 1:39 EDT Temperature Oral 36.8 DegC Heart Rate Monitored 80 bpm Respiratory Rate 14 br/min Systolic Blood Pressure Invasive 134 mmHg Diastolic Blood Pressure Invasive 53 mmHg LOW Mean Arterial Pressure (Line) 81 mmHg Reason For Taking VItal Signs Routine 01/06/2022 1:00 EDT Heart Rate Monitored 80 bpm Systolic Blood Pressure Invasive 129 mmHg Diastolic Blood Pressure Invasive 51 mmHg LOW Mean Arterial Pressure (Line) 77 mmHg 01/06/2022 0:30 EDT Heart Rate Monitored 80 bpm Systolic Blood Pressure Invasive 128 mmHg Diastolic Blood Pressure Invasive 50 mmHg <LLOW Mean Arterial Pressure (Line) 76 mmHg 01/06/2022 0:00 EDT Heart Rate Monitored 80 bpm Systolic Blood Pressure Invasive 138 mmHg Diastolic Blood Pressure Invasive 54 mmHg LOW Mean Arterial Pressure (Line) 83 mmHg . Mental status: at preoperative baseline. Respiratory function: respirations are non-labored, Stable. Respiratory support: oxygen 94% 2l. CV function: Stable. Cardiovascular support: none. Pain: Satisfactory. Nausea status: Satisfactory. Postoperative hydration status: within normal limits. Notes: Patient is sufficiently recovered from anesthesia to participate in the evaluation. No follow-up care needed. No complications post-anesthesia.. Digitally Signed by LINN RICHARD DO on 01/07/2022 08:18 AM * LINN RICHARD DO: PERFORM, SIGN, VERIFY, MODIFY, SIGN Event Display: Anesthesiology Consultation Authored Date: Patient: ELIZABETH MODI Age: 81 years Sex: Male : 1940 Associated Diagnoses: None Author: LINN RICHARD DO Preoperative Information Greater than 6 hours Anesthesia history Patient's history: negative. Family's history: negative. Review of Systems Ear/Nose/Mouth/Throat: Negative except as documented in history of present illness. Respiratory: Negative except as documented in history of present illness. Cardiovascular: Negative except as documented in history of present illness. Gastrointestinal: Negative except as documented in history of present illness. Genitourinary: Negative except as documented in history of present illness. Endocrine: Negative except as documented in history of present illness. Musculoskeletal: Negative except as documented in history of present illness. Integumentary: Negative except as documented in history of present illness. Neurologic: Negative except as documented in history of present illness. Health Status Allergies: Allergic Reactions (Selected) NKA, Allergies (1) ActiveReaction NKANone Documented Current medications: (Selected) Inpatient Medications Ordered Adrenalin 4 mg + Normal Saline 250 mL: Start: 01/05/22 6:00:00 EDT, 18 hour(s), Stop date 01/05/22 23:59:00 EDT, Infuse as directed for [facility]: Start: 01/05/22 6:00:00 EDT, Stop date 01/05/22 6:00:00 EDT, Rate: 0 mL/hr Cefuroxime Inj (Zinacef): Start: 01/05/22 6:00:00 EDT, Dose = 1.5 gram(s), Topical, PREOP pharm, 18hour(s), Stop: 01/05/22 23:59:00 EDT, mL/hr, Infuse over: 0 minute(s), 0 DuoNeb: Start: 12/30/21 6:48:00 EDT, Dose = 3 mL, Soln, Inhalation, q4hRT, PRN, decreased breath sounds, 12/30/21 6:48:00 EDT Heparin 10,000 units/mL: Start: 06/25/21 6:00:00 EST, Dose = 10,000 unit(s), = 1 mL, Miscellaneous,PREOP pharm, 12 hour(s), Stop: 06/25/21 17:59:00 EST, mL/hr, Infuse over: 0 minute(s), 0 Heparin 10,000 units/mL: Start: 01/05/22 6:00:00 EDT, Dose = 10,000 unit(s), = 1 mL, Miscellaneous,PREOP pharm, 12 hour(s), Stop: 01/05/22 17:59:00 EDT, mL/hr, Infuse over: 0 minute(s), 0 Heparin HBW CARDIAC Bolus 5000 units/mL: Start: 12/30/21 6:52:00 EDT, Dose = 4,000 unit(s), = 0.8 mL, IV Push, q6h, PRN, Protocol, Weight Based Heparin, 12/30/21 6:52:00 EDT HumaLOG 100 units/mL subcutaneous solution: Start: 01/01/22 8:24:00 EDT, Give 2- 18 units/dose, Subcutaneous, achs, NOW, 0, 01/01/22 8:24:00 EDT Kefzol: Start: 01/05/22 6:00:00 EDT, Dose= 2 gram(s), = 20 mL, IV Push (INT), PREOP pharm, Routine,Rate: 240 mL/hr, Infuse over: 5 minute(s), 20 mL, 01/05/22 6:00:00 EDT Lantus: Start: 01/03/22 7:30:00 EDT, Dose = 25 unit(s), = 0.25 mL, Subcutaneous (INT), acBreakfast,Rate: 0 mL/hr, Infuse over: 0 minute(s), 0, 01/02/22 20:42:00 EDT Lipitor: Start: 12/31/21 22:00:00 EDT, Dose = 40 mg, = 1 tab(s), Oral, qDay, 12/31/21 7:55:00 EDT NO METFORMIN (Glucophage) X 48hrs-patient has received contrast: Start: 12/31/21 15:00:00 EDT, Unscheduled, 48 hour(s), Stop: 01/02/22 14:59:00 EDT, 12/31/21 14:47:00 EDT No Vitamin E,clopidogrel (Plavix), 5 days before surgery: Start: 12/31/21 17:16:00 EDT, Daily, 12/31/21 17:16:00 EDT No prasugrel (Effient) 7 days before surgery: Start: 12/31/21 17:16:00 EDT, Daily, 12/31/21 17:16:00 EDT Peridex 0.12% oral rinse liquid: Start: 01/04/22 21:00:00 EDT, Dose = 15 mL, Liq, Oral, BID, 2 dose(s), Stop: 01/05/22 9:00:00 EDT, 01/04/22 21:00:00 EDT allopurinol: Start: 01/01/22 17:00:00 EDT, Dose = 300 mg, = 1 tab(s), Oral, qDayPC, 0, 01/01/22 16:08:00 EDT amLODIPine: Start: 01/05/22 9:00:00 EDT, Dose = 5 mg, = 1 tab(s), Oral, qDay, 01/05/22 9:00:00 EDT aspirin: Start: 12/30/21 10:57:00 EDT, Dose = 81 mg, = 1 tab(s), Oral, Daily, 0, 12/30/21 10:02:00 EDT citalopram: Start: 12/30/21 9:00:00 EDT, Dose = 10 mg, = 1 tab(s), Oral, qAM, 0, 12/30/21 6:50:00 EDT heparin 25,000 unit(s) + Dextrose 5% Premix Diluent 250 mL: Start: 12/30/21 8:30:00 EDT, Rate: 10 mL/hr insulin regular 100 unit(s) + Normal Saline 100 mL: Start: 01/05/22 6:00:00 EDT, Stop date 01/05/2223:59:00 EDT, Infuse as directed for [facility] isosorbide mononitrate 30 mg oral tablet, extended release: Start: 01/01/22 9:00:00 EDT, Dose = 30 mg, = 1 tab(s), Oral, qAM, 0, 01/01/22 9:00:00 EDT labetalol: Start: 12/31/21 16:56:00 EDT, Dose = 10 mg, = 2 mL, IV Push, q20min, PRN, Other (see order comments), Routine, 10 dose(s), Stop: Limited # of times, Give if SBP (mmHg) > 140, Hold if HR(bpm) < 55, 12/31/21 16:56:00 EDT levothyroxine: Start: 12/30/21 6:51:00 EDT, Dose = 50 mcg, = 1 tab(s), Oral, qAM, 12/30/21 6:51:00 EDT melatonin: Start: 12/30/21 6:48:00 EDT, Dose = 3 mg, = 1 tab(s), Oral, qHS, PRN, Sleep, 12/30/21 6:48:00 EDT metoprolol succinate 50 mg oral TABLET extended release: Start: 12/30/21 8:00:00 EDT, Dose = 50 mg,= 1 tab(s), Oral, qDay, 0, 12/30/21 6:51:00 EDT mupirocin 2% topical ointment: Start: 12/31/21 21:00:00 EDT, Dose = 1 femi, Nostril, each, BID, Apply to: each nostril, 10 day(s), Stop: 01/10/22 9:00:00 EDT, Ointment, 12/31/21 17:16:00 EDT nitroGLYcerin 7 mg + verapamil 15 mg + Plasma-Lyte A PH-7.4 1,000 mL: Start: 01/05/22 6:00:00 EDT, 8 hour(s), Stop date 01/05/22 13:59:00 EDT, Use as directed in CV[facility] norepinephrine 8 mg + Normal Saline 250 mL: Start: 01/05/22 6:00:00 EDT, 18 hour(s), Stop date 01/05/22 23:59:00 EDT, Infuse as directed for [facility] predniSONE: Start: 12/31/21 9:34:00 EDT, Dose = 10 mg, = 1 tab(s), Oral, qDay, 12/31/21 9:34:00 EDT tranexamic acid 1 gram(s): 01/05/22 6:00:00 EDT, PMX bag, IV Piggyback, 18 hour(s), Physician Stop,Stop date 01/05/22 23:59:00 EDT tranexamic acid 1 gram(s): 01/05/22 6:00:00 EDT, PMX bag, IV Piggyback, 18 hour(s), Physician Stop,Stop date 01/05/22 23:59:00 EDT tranexamic acid 1 gram(s): 01/05/22 6:00:00 EDT, PMX bag, IV Piggyback, 18 hour(s), Physician Stop,Stop date 01/05/22 23:59:00 EDT vancomycin IVPB: Start: 01/05/22 6:00:00 EDT, Dose = 1,250 mg, = 25 mL, IV Piggyback, PREOP pharm, Rate: 220 mL/hr, Infuse over: 75 minute(s), 0, 01/05/22 6:00:00 EDT vitamin A: Start: 01/02/22 9:00:00 EDT, Dose = 10,000 unit(s), = 1 cap(s), Oral, qDay, 01/02/22 8:37:00 EDT Suspended MetFORMIN (Eqv-Glucophage XR): Start: 01/02/22 17:00:00 EDT, Dose = 500 mg, = 1 tab(s), Oral, BID, 01/02/22 17:00:00 EDT Documented Medications Documented Eliquis 5 mg oral tablet: Dose : 5 mg = 1 tab(s), Oral, BID, 0 Refill(s) HumaLOG 100 units/mL injectable solution VIAL: Dose : 50 unit(s) =, Subcutaneous, TID Lipitor: Dose : 20 mg =, Oral, qDay, 0 Refill(s) Toujeo Max SoloStar 300 units/mL subcutaneous solution: Dose : 100 unit(s) =, Subcutaneous, qHS, 0 Refill(s) amiodarone 200 mg oral tablet: Dose : 200 mg = 1 tab(s), Oral, qAM, 0 Refill(s) citalopram 10 mg oral tablet: Dose : 10 mg = 1 tab(s), Oral, qAM, 0 Refill(s) isosorbide mononitrate 30 mg oral tablet, extended release: Dose : 15 mg = 0.5 tab(s), Oral, qAM, 0Refill(s) levothyroxine 50 mcg (0.05 mg) oral tablet: Dose : 50 mcg = 1 tab(s), Oral, qAM lisinopril: Dose : 20 mg =, Oral, qDay, 0 Refill(s) metoprolol succinate 50 mg oral TABLET extended release: Dose : 50 mg = 1 tab(s), Oral, qDay, Do not crush or chew (controlled release) predniSONE 10 mg oral tablet: Dose : 10 mg = 1 tab(s), Oral, qDay, 0 Refill(s), Medications (34) Active Scheduled: (22) allopurinol 300 mg tablet 300 mg 1 tab(s), Oral, qDayPC amLODIPine 5 mg tablet 5 mg 1 tab(s), Oral, qDay aspirin 81 mg Chewable 81 mg 1 tab(s), Oral, Daily atorvastatin 40 mg tablet 40 mg 1 tab(s), Oral, qDay [facility] formula 1,052.8 mL, Miscellaneous, Once ceFAZolin syringe 2 gram(s) 20 mL, IV Push (INT), PREOP pharm cefuroxime 1.5 gram(s), Topical, PREOP pharm chlorhexidine topical 0.12% Liquid (60 mL) 15 mL, Oral, BID citalopram 10 mg tablet 10 mg 1 tab(s), Oral, qAM heparin 10,000 unit(s) 1 mL, Miscellaneous, PREOP pharm insulin glargine 25 unit(s) 0.25 mL, Subcutaneous (INT), acBreakfast insulin lispro 100 units/mL Soln (3 mL) Give 2-18 units/dose, Subcutaneous, achs isosorbide mononitrate 30 mg ER tablet 30 mg 1 tab(s), Oral, qAM levothyroxine 50 mcg tablet 50 mcg 1 tab(s), Oral, qAM metoprolol succinate 50 mg ER tablet 50 mg 1 tab(s), Oral, qDay mupirocin 2% Ointment 22 Gram(s) tube 1 femi, Nostril, each, BID No metformin for 48 hrs post contrast 1 EA, Miscellaneous, Unscheduled No prasugrel (Effient) 7 days before surgery 1 EA, Miscellaneous, Daily NO vitamin E, clopidogrel (Plavix) 5 days before surgery 1 EA, Miscellaneous, Daily predniSONE 10 mg tablet 10 mg 1 tab(s), Oral, qDay vancomycin 1,250 mg 25 mL, IV Piggyback, PREOP pharm vitamin A 10,000 units capsule 10,000 unit(s) 1 cap(s), Oral, qDay Continuous: (8) epinephrine 4 mg + Sodium Chloride 0.9% 250 mL 250 mL, Intravenous heparin 25,000 unit(s) + Dextrose 5% Premix Diluent 250 mL 25,000 unit(s), Intravenous, 10 mL/hr insulin regular 100 unit(s) + Sodium Chloride 0.9% 100 mL 100 mL, Intravenous nitroglycerin 7 mg + verapamil 15 mg + Electrolyte Solution (Plasma-Lyte) IV Soln 1000 mL 1,000 mL 1,000 mL, Miscellaneous norepinephrine 8 mg + Sodium Chloride 0.9% 250 mL 250 mL, Intravenous tranexamic acid PMX 1 gram(s) , IV Piggyback tranexamic acid PMX 1 gram(s) , IV Piggyback tranexamic acid PMX 1 gram(s) , IV Piggyback PRN: (4) albuterol - ipratropium 2.5 mg-0.5 mg/3 mL Inhal Sally UD 3 mL, Inhalation, q4hRT heparin 5,000 units/mL (1 mL) vial 4,000 unit(s) 0.8 mL, IV Push, q6h labetalol 5 mg/mL (4 mL) INJ 10 mg 2 mL, IV Push, q20min melatonin 3 mg tablet 3 mg 1 tab(s), Oral, qHS Problem list: Medical CKD (chronic kidney disease), stage III / SNOMED CT 5682065398 / Confirmed CAD (coronary artery disease) / SNOMED CT 20252128 / Confirmed Diabetes / SNOMED CT 497696786 / Confirmed History of Singh's palsy / SNOMED CT 850996261 / Confirmed HLD (hyperlipidemia) / SNOMED CT 59345274 / Confirmed HTN (hypertension) / SNOMED CT 0308497300 / Confirmed Hypothyroid / SNOMED CT 37753120 / Confirmed QUIN (acute kidney injury) / SNOMED CT 15618744 / Confirmed Mood disorder / SNOMED CT 87327571 / Confirmed NSTEMI (non-ST elevated myocardial infarction) / SNOMED CT 27961670 / Confirmed AF (paroxysmal atrial fibrillation) / SNOMED CT 437893879 / Confirmed PVD (peripheral vascular disease) / SNOMED CT 3502582926 / Confirmed Giant cell arteritis / SNOMED CT 3145800950 / Confirmed, Active Problems (24) AF (paroxysmal atrial fibrillation) QUIN (acute kidney injury) CAD (coronary artery disease) Cataract CKD (chronic kidney disease), stage III COPD (chronic obstructive pulmonary disease) Depression Diabetes DM (diabetes mellitus) Giant cell arteritis Giant cell arteritis syndrome Glasses Heart disease High blood pressure History of Singh's palsy HLD (hyperlipidemia) HTN (hypertension) Hypothyroid Kidney disease [place] (myocardial infarction) Mood disorder NSTEMI (non-ST elevated myocardial infarction) PVD (peripheral vascular disease) Tachycardia Histories Past Medical History: No active or resolved past medical history items have been selected or recorded. Family History: No family history items have been selected or recorded. Procedure history: Amputation ([id number]) in 2020 at 79 Years. Comments: 07/12/2021 14:23 Maria Esther Navarro RN Left below the knee Amputation ([id number]) in 2020 at 79 Years. Comments: 07/12/2021 14:24 Maria Esther Navarro RN right below the knee amputation Catheter ([id number]) in 2020 at 79 Years. Comments: 07/12/2021 14:25 Maria Esther Navarro RN Temporary dialysis cath None ([id number]). Social History Social & Psychosocial Habits Alcohol 07/12/2021 Use: Current Type: Beer Frequency: 1-2 times per year Substance Abuse 07/12/2021 Use: Never Tobacco 07/12/2021 Tobacco Use: Former smoker, quit more Type: Cigarettes Stopped at age: 55 Years Nutrition/Health 07/12/2021 Type of diet: Diabetic, Regular Appetite Good Eating Difficulties None, full set of dentures . Physical Examination General: Alert and oriented. Airway: Normal temporomandibular joint mobility, Normal mouth, Normal throat, Normal neck range of motion, Trachea midline. Mallampati classification: II (soft palate, fauces, uvula visible). Head: Normocephalic. Dentition Evaluation: Dentures, lower, Dentures, upper, Denies loose/chipped teeth. Neck: Supple. Respiratory: Lungs are clear to auscultation, Respirations are non-labored. Cardiovascular: Normal rate, Regular rhythm, No murmur. Heart Sounds: Normal. Gastrointestinal: Soft. Musculoskeletal bilat bka. Integumentary: Intact, Warm, Dry. Neurologic: Alert, Oriented. Review / Management Results review: Lab results 01/05/2022 6:00 EDT levothyroxine Not Done: Patient NPO (Not Done) 01/05/2022 5:28 EDT Urinary Elimination Voiding, no difficulties IV Present Present Allergies No Financial Advocate On Yes Patient Dressed In Hospital gown Pre-op Preparation Undergarments removed CHG Preoperative Wash/Wipe Day of procedure CHG Skin Prep Completed for Eligible Surgery Allergy Band on and Verified No Patient ID Band on and Verified Yes 01/05/2022 5:10 EDT Temperature Oral 36.5 DegC Heart Rate Monitored 49 bpm LOW Respiratory Rate 16 br/min Systolic Blood Pressure NBP 128 mmHg Diastolic Blood Pressure NBP 60 mmHg Mean Arterial Pressure (NBP) 78 mmHg Reason For Taking VItal Signs Routine Primary Pain Intensity 0 Primary Pain Nonverbal Response Nods No Pain Scale Type 0-10 Pain scale Monitor Alarms On and Limits Checked Nail Bed Color [place] Capillary Refill < 2 seconds Heart Sounds ICU S1S2 Heart Rhythm Regular Radial Pulse, Left 2+ Normal Radial Pulse, Right 2+ Normal Popliteal Pulse, Left 1+ Thready Popliteal Pulse, Right 1+ Thready Edema Generalized None Cardiac Rhythm Sinus bradycardia ST Segment Measurement 0.[address] Segment Measurement [address] Segment Measurement -0.1 mm Respirations Unlabored Respiratory Pattern Regular Nasal Symptoms None Breath Sounds Auscultated Anterior and posterior All Lobes Breath Sounds Clear Cough and Deep Breathe Done Cough None Oxygen Therapy Room air Oxygen Saturation 94 % Tracheal Position Midline Abdomen Description Non-distended Abdomen Palpation Non-Tender Bowel Continence LTC No bowel movement Bowel Sounds All Quadrants Present Urinary Elimination Voiding, no difficulties Urine Color Yellow, Dark Urine Description Small amount Facial Movement Makes facial grimaces, Symmetric resting/crying Skin Symptoms Bruising All Extremity Description Normal for ethnicity Skin Temperature Warm Temperature All Extremities Warm Skin Description [place], Normal for ethnicity, Dry Skin Integrity Pressure points intact Skin Turgor Elastic Mucous Membrane Color [place] Mucous Membrane Description Moist Sensory Perception Dre No impairment Moisture Dre Rarely moist Activity Dre Bedfast Mobility Dre Slightly limited Nutrition Dre Adequate Friction and Shear Dre Potential problem Dre Score 17 Hospital Acquired Pressure Injury Risk Low risk (score 15-18) Leg Bilateral Skin Abnormality Type: Abrasion Incision, Wound Dressing/Activity: Assessed Incision, Wound Dressing: Open to air Wound Exudate Amount: None Incision, Wound Surrounding Tissue: Normal Wound Status: No complications Head Skin Abnormality Type: Surgical incision Skin Abnormality Pattern: Linear Incision, Wound Dressing/Activity: Open to air Wound Edge: Approximated Incision, Wound Surrounding Tissue: Normal Wound Status: No complications Antecubital Left 20 gauge Peripheral IV Activity: Assessed Peripheral IV Dressing Condition: Clean, Dry, Intact Peripheral IV Dressing Activity: Transparent dressing Peripheral IV Line Status/Patency: Flushes easily, 10ml normal saline flush Peripheral IV Line Care: Needleless Protector End Cap(s) in place, Secured with tape Peripheral IV Site Condition: No complications Peripheral IV Equipment: PRN Adaptor Forearm Right 01/01/2022 20 gauge Peripheral IV Activity: Assessed Peripheral IV Dressing Condition: Clean, Dry, Intact Peripheral IV Dressing Activity: Transparent dressing Peripheral IV Line Status/Patency: Flushes easily, 3ml normal saline flush Peripheral IV Line Care: Needleless Protector End Cap(s) in place, Secured with tape Peripheral IV Site Condition: No complications Peripheral IV Equipment: PRN Adaptor Radial Artery Right Vascular Access Site Condition: No complications Vascular Access Distal Pulses: Palpable Neurological Language Able to speak clearly, Follows simple commands Neurological Symptoms Patient denies Gait Unable to assess Extremity Movement Equal Swallowing Difficulty None Characteristics of Communication Appropriate Characteristics of Speech Clear Facial Symmetry Symmetric Level of Consciousness Arousable with minimal stimulation Aspiration Risk None FERNANDO Yes Left Pupil Description Regular, Round Right Pupil Description Regular, Round Left Pupil Reaction Brisk, Consensual light reflex present Right Pupil Reaction Brisk, Consensual light reflex present Pupil Size, Left 3 mm Pupil Size, Right 3 mm Pupil Accommodation Left Pupil constriction Pupil Accommodation Right Pupil constriction Left Upper Extremity Strength Strong Right Upper Extremity Strength Strong Left Upper Extremity Sensation Intact Right Upper Extremity Sensation Intact CN V Facial Sensation Corneal reflex present CN VII Facial Expression and Symmetry Facial movement symmetrical CN VIII Hearing Oculocephalic reflex present CN IX, X Swallowing, Gag Reflex Swallowing present CAM Mental Status Change & Fluctuation No CAM Inattention No CAM Disorganized Thinking No CAM Altered Level of Consciousness No Confusion Assessment Method Score Negative Reza Screen Daily History of Fall in Last 3 Months Reza No Presence of Secondary Diagnosis Reza Yes Use of Ambulatory Aid Reza None, bedrest, wheelchair, nurse IV/PRN Adapter Fall Risk Reza Yes Gait Weak or Impaired Fall Risk Reza Normal, bedrest, immobile Mental Status Fall Risk Reza Oriented to own ability Reza Fall Risk Score 35 Participative in Fall Prevention Yes Violence Risk Confused No Violence Risk Irritable No Violence Risk Boisterous No Violence Risk Verbal Threats No Violence Risk Physical Threats No Violence Risk Attacking Objects No Violence Risk Predictor Score 0 Violence Risk Intervention None Violence Risk Current Interventions None Affect/Behavior Appropriate, Calm, Cooperative Orientation Oriented x 4 Leg Bilateral Musculoskeletal Abnormality: Amputation Amputation Site: Below the knee Musculoskeletal Symptoms: None Activity Status ADL Sleeps intermittently Beds/Devices Hospital bed Activity Assistance Minimum assistance Assistive Device Wheelchair Standard Safety ID band on, Call device within reach, Bed in low position, Wheels locked, Upper/Half-Length side-rails up, Phone within reach, personal items within reach, Assistive devices within reach, Safety level maintained, Hazards removed from floor, Non-Slip footwear, Precautions maintained High Risk Safety Door open, Bathroom light on, Non-Slip footwear, Room check performed Demonstrates Correct Call Light Use Yes 01/05/2022 4:26 EDT WBC 11.3 10^3/mcL HI RBC 4.39 10^6/mcL LOW Hgb 12.7 G/dL LOW Hct 38.6 % LOW MCV 87.9 fL MCH 28.9 pg MCHC 32.9 G/dL RDW 15.9 % HI Platelet 301 10^3/mcL MPV 8.3 fL Monocyte Distribution Width Not Performed Glucose Level 117 mg/dL HI Sodium Level 142 mEq/L Potassium Level 4.4 mEq/L Chloride 108 mEq/L CO2 25 mEq/L Electrolyte Balance 9.0 mEq/L BUN 36.0 mg/dL HI Creatinine Lvl (s) 1.75 mg/dL HI BUN/Creatinine Ratio 20.6 ratio Calcium Lvl 9.3 mg/dL Magnesium Lvl 1.9 mg/dL Total Protein 6.4 G/dL Albumin Level 3.1 G/dL LOW Globulin 3.3 G/dL A/G Ratio 0.9 ratio Bili Total 1.20 mg/dL Alk Phos 86 U/L AST/SGOT 18 U/L ALT/SGPT 19 U/L GFR Non- 38 ml/min/1.73sqm NA GFR 46 ml/min/1.73sqm NA Creatinine Clearance Calc 23.64 mL/min Slide Review Man Indicated 01/05/2022 3:58 EDT Post Rehab Outcome Not Done: Not Appropriate at this Time (Not Done) Cardiac Rehab - Phase I Not Done (Not Done) 01/05/2022 3:55 EDT Cardiac Rhythm Sinus rhythm Monitoring Lead II, V1/MCL1 CT Interval 0.17 second(s) QRS Duration 0.12 second(s) QT Interval 0.57 second(s) QTc Interval 0.51 second(s) Alarms On and Functional Yes Heart Rate Alarm Set At - Low 50 Heart Rate Alarm Set At - High 120 01/05/2022 2:30 EDT heparin unit(s)/kg/hr unit(s) Dextrose 5% Premix Diluent Dextrose 5% Premix Diluent mL 01/05/2022 0:29 EDT CAM Mental Status Change & Fluctuation No CAM Inattention No CAM Disorganized Thinking No CAM Altered Level of Consciousness No Confusion Assessment Method Score Negative Able To Drink Order Detail Yes Able To Sign Consents Order Detail Yes Code Status Order Detail Full code IV Order Detail Yes Dialysis Schedule Order Detail N/A Has Diabetes Order Detail Yes Isolation Precautions Order Detail None Nurse Collect Order Detail 0 Oxygen Order Detail No Order Detail N/A Prior Valve Replacement Order Detail No Transport Mode Order Detail MTT with Monitor Beam Department Supervisor Details Form Beam Department Supervisor Details Form 01/05/2022 0:28 EDT Skin Assessment Verification Transfer Able To Drink Order Detail Yes Able To Sign Consents Order Detail Yes Code Status Order Detail Full code IV Order Detail Yes Dialysis Schedule Order Detail N/A Has Diabetes Order Detail Yes Isolation Precautions Order Detail None Nurse Collect Order Detail 0 Oxygen Order Detail No Order Detail N/A Prior Valve Replacement Order Detail No Transport Mode Order Detail MTT with Monitor Beam Department Supervisor Details Form Beam Department Supervisor Details Form 01/04/2022 23:29 EDT heparin Begin Bag 2.5 mL unit(s) Dextrose 5% Premix Diluent Begin Bag 250 mL mL 01/04/2022 23:15 EDT Temperature Oral 36.6 DegC Heart Rate Monitored 64 bpm Respiratory Rate 16 br/min Systolic Blood Pressure NBP 112 mmHg Diastolic Blood Pressure NBP 63 mmHg Mean Arterial Pressure (NBP) 78 mmHg Reason For Taking VItal Signs Routine Primary Pain Intensity 0 Pain Scale Type 0-10 Pain scale Monitor Alarms On and Limits Checked Nail Bed Color [place] Capillary Refill < 2 seconds Heart Sounds ICU S1S2 Heart Rhythm Regular Radial Pulse, Left 2+ Normal Radial Pulse, Right 2+ Normal Popliteal Pulse, Left 1+ Thready Popliteal Pulse, Right 1+ Thready Edema Generalized None Cardiac Rhythm Sinus rhythm Monitoring Lead II, V1/MCL1 CT Interval 0.18 second(s) QRS Duration 0.12 second(s) QT Interval 0.47 second(s) QTc Interval 0.48 second(s) Alarms On and Functional Yes Respirations Unlabored Respiratory Pattern Regular Breath Sounds Auscultated Anterior only All Lobes Breath Sounds Clear Oxygen Therapy Room air Abdomen Description Non-distended, Symmetric, Soft Abdomen Palpation Non-Tender Bowel Sounds All Quadrants Present Urinary Elimination Voiding, no difficulties All Extremity Description [place], Normal for ethnicity Skin Temperature Warm Temperature All Extremities Warm Skin Description [place], Normal for ethnicity Mucous Membrane Color [place] Mucous Membrane Description Moist Leg Bilateral Skin Abnormality Type: Abrasion Incision, Wound Dressing/Activity: Assessed Incision, Wound Dressing: Open to air Wound Exudate Amount: None Incision, Wound Surrounding Tissue: Normal Wound Status: No complications Head Skin Abnormality Type: Surgical incision Skin Abnormality Pattern: Linear Incision, Wound Dressing/Activity: Open to air Wound Edge: Approximated Incision, Wound Surrounding Tissue: Normal Wound Status: No complications Antecubital Left 20 gauge Peripheral IV Activity: Assessed Peripheral IV Site Condition: No complications Forearm Right 01/01/2022 20 gauge Peripheral IV Activity: Assessed Peripheral IV Site Condition: No complications Radial Artery Right Vascular Access Site Condition: No complications Vascular Access Distal Pulses: Palpable Neurological Symptoms Patient denies Level of Consciousness Arousable with minimal stimulation FERNANDO Yes Left Upper Extremity Strength Strong Right Upper Extremity Strength Strong Left Upper Extremity Sensation Intact Right Upper Extremity Sensation Intact Violence Risk Confused No Violence Risk Irritable No Violence Risk Boisterous No Violence Risk Verbal Threats No Violence Risk Physical Threats No Violence Risk Attacking Objects No Violence Risk Predictor Score 0 Violence Risk Intervention None Violence Risk Current Interventions None Affect/Behavior Appropriate, Calm, Cooperative Orientation Oriented x 4 Orientation Assessment Oriented x 4 Activity Status ADL Repositions self, Resting, Sleeping quietly with easy respirations Beds/Devices Hospital bed Activity Assistance Minimum assistance Standard Safety ID band on, Call device within reach, Bed in low position, Wheels locked, Upper/Half-Length side-rails up, Phone within reach, personal items within reach, Assistive devices within reach, Safety level maintained, Non-Slip footwear High Risk Safety Room check performed Demonstrates Correct Call Light Use Yes heparin 8.7 unit(s)/kg/hr unit(s) Dextrose 5% Premix Diluent Dextrose 5% Premix Diluent mL 01/04/2022 23:03 EDT Temperature Oral 36.6 DegC Heart Rate Monitored 62 bpm Respiratory Rate 16 br/min Systolic Blood Pressure NBP 112 mmHg Diastolic Blood Pressure NBP 63 mmHg Mean Arterial Pressure (NBP) 78 mmHg Reason For Taking VItal Signs Routine Oxygen Therapy Room air Oxygen Saturation 93 % Activity Status ADL Awake, Lights dimmed, Repositions self, Resting Beds/Devices Hospital bed Standard Safety ID band on, Call device within reach, Bed in low position, Wheels locked, Upper/Half-Length side-rails up, Phone within reach, personal items within reach, Safety level maintained, Non-Slip footwear High Risk Safety Non-Slip footwear, Room check performed Demonstrates Correct Call Light Use Yes Urine Voided 100 mL 01/04/2022 22:12 EDT atorvastatin 40 mg mg chlorhexidine topical 15 mL mL insulin lispro 6 unit(s) unit(s) mupirocin topical 1 femi femi 01/04/2022 22:06 EDT CHG Preoperative Wash/Wipe Night before procedure Bed Bath Two assist Skin Care Done Skin Care Product Applied CHG bath Linen Change Done 01/04/2022 21:26 EDT Blood Glucose, Capillary 206 mg/dL HI Blood Glucose Testing Reason Routine 01/04/2022 19:40 EDT Temperature Oral 36.6 DegC Reason For Taking VItal Signs Routine Primary Pain Intensity 0 Primary Pain Nonverbal Response Appears restful Pain Scale Type 0-10 Pain scale Monitor Alarms On and Limits Checked Nail Bed Color [place] Capillary Refill < 2 seconds Heart Sounds ICU S1S2 Heart Rhythm Regular Radial Pulse, Left 2+ Normal Radial Pulse, Right 2+ Normal Popliteal Pulse, Left 1+ Thready Popliteal Pulse, Right 1+ Thready Edema Generalized None Cardiac Rhythm Sinus rhythm Monitoring Lead II, V1/MCL1 CT Interval 0.19 second(s) QRS Duration 0.12 second(s) QT Interval 0.50 second(s) QTc Interval 0.49 second(s) Alarms On and Functional Yes Heart Rate Alarm Set At - Low 50 Heart Rate Alarm Set At - High 120 Respirations Unlabored Respiratory Pattern Regular Nasal Symptoms None Breath Sounds Auscultated Anterior only All Lobes Breath Sounds Clear, Diminished Patient Participation in Treatment Cooperative Cough and Deep Breathe Done Cough None Oxygen Therapy Room air Tracheal Position Midline Abdomen Description Non-distended, Symmetric, Soft Abdomen Palpation Non-Tender Bowel Sounds All Quadrants Present Urinary Elimination Voiding, no difficulties Facial Movement Symmetric resting/crying All Extremity Description [place], Normal for ethnicity Skin Temperature Warm Temperature All Extremities Warm Skin Description [place], Normal for ethnicity Skin Integrity Pressure points intact Skin Turgor Elastic Mucous Membrane Color [place] Mucous Membrane Description Moist Sensory Perception Dre No impairment Moisture Dre Rarely moist Activity Dre Bedfast Mobility Dre Slightly limited Nutrition Dre Adequate Friction and Shear Dre Potential problem Dre Score 17 Hospital Acquired Pressure Injury Risk Low risk (score 15-18) Leg Bilateral Skin Abnormality Type: Abrasion Incision, Wound Dressing/Activity: Assessed Incision, Wound Dressing: Open to air Wound Exudate Amount: None Incision, Wound Surrounding Tissue: Normal Wound Status: No complications Head Skin Abnormality Type: Surgical incision Skin Abnormality Pattern: Linear Incision, Wound Dressing/Activity: Open to air Wound Edge: Approximated Incision, Wound Surrounding Tissue: Normal Wound Status: No complications Antecubital Left 20 gauge Peripheral IV Activity: Assessed Peripheral IV Dressing Condition: Clean, Dry, Intact Peripheral IV Dressing Activity: Transparent dressing Peripheral IV Line Status/Patency: Flushes easily, 10ml normal saline flush Peripheral IV Site Condition: No complications Forearm Right 01/01/2022 20 gauge Peripheral IV Activity: Assessed Peripheral IV Dressing Condition: Clean, Dry, Intact Peripheral IV Dressing Activity: Transparent dressing Peripheral IV Line Status/Patency: Flushes easily, 10ml normal saline flush Peripheral IV Site Condition: No complications Radial Artery Right Vascular Access Site Condition: No complications Vascular Access Distal Pulses: Palpable Neurological Language Able to speak clearly Neurological Symptoms Patient denies Gait Unable to assess Extremity Movement Equal Swallowing Difficulty None Characteristics of Communication Appropriate Characteristics of Speech Clear Facial Symmetry Symmetric Level of Consciousness Alert Aspiration Risk None FERNANDO Yes Left Pupil Description Regular, Round Right Pupil Description Regular, Round Left Pupil Reaction Brisk Right Pupil Reaction Brisk Pupil Size, Left 3 mm Pupil Size, Right 3 mm Left Upper Extremity Strength Strong Right Upper Extremity Strength Strong Left Upper Extremity Sensation Intact Right Upper Extremity Sensation Intact CN VII Facial Expression and Symmetry Facial movement symmetrical CN IX, X Swallowing, Gag Reflex Swallowing present Affect/Behavior Appropriate, Calm, Cooperative Orientation Oriented x 4 Orientation Assessment Oriented x 4 Activity Status ADL Awake, Repositions self, Resting Beds/Devices Hospital bed Activity Assistance Minimum assistance Standard Safety ID band on, Call device within reach, Bed in low position, Wheels locked, Upper/Half-Length side-rails up, Phone within reach, Safety level maintained High Risk Safety Room check performed Demonstrates Correct Call Light Use Yes heparin 8.7 unit(s)/kg/hr unit(s) Dextrose 5% Premix Diluent Dextrose 5% Premix Diluent mL 01/04/2022 19:25 EDT Temperature Oral 36.6 DegC Heart Rate Monitored 58 bpm LOW Respiratory Rate 16 br/min Systolic Blood Pressure NBP 122 mmHg Diastolic Blood Pressure NBP 64 mmHg Mean Arterial Pressure (NBP) 83 mmHg Reason For Taking VItal Signs Routine Oxygen Therapy Room air Oxygen Saturation 96 % Activity Status ADL Awake, Lights dimmed, Repositions self, Resting Beds/Devices Hospital bed Standard Safety ID band on, Call device within reach, Bed in low position, Wheels locked, Upper/Half-Length side-rails up, Phone within reach, personal items within reach, Safety level maintained, Non-Slip footwear High Risk Safety Non-Slip footwear, Room check performed Demonstrates Correct Call Light Use Yes 01/04/2022 19:00 EDT Bed Status CVSD 0212 A Ready 01/04/2022 17:18 EDT ABO/Rh Interp A POS ABSC Interp (Gel) NEG Crossmatch, Immediate Spin Compatible Crossmatch, Immediate Spin Compatible 01/04/2022 16:47 EDT Primary Pain Intensity 0 Pain Scale Type 0-10 Pain scale Heart Sounds ICU S1S2 Heart Rhythm Regular Radial Pulse, Left 2+ Normal Radial Pulse, Right 2+ Normal Edema Generalized None Respirations Unlabored Respiratory Pattern Regular Breath Sounds Auscultated Anterior and posterior All Lobes Breath Sounds Clear Tracheal Position Midline Abdomen Description Non-distended Abdomen Palpation Non-Tender Bowel Sounds All Quadrants Present Urinary Elimination Voiding, no difficulties Urine Description Medium amount Facial Movement Symmetric resting/crying Skin Symptoms Bruising Skin Temperature Warm Skin Description [place], Normal for ethnicity Skin Integrity Intact Skin Turgor Elastic Mucous Membrane Color [place] Mucous Membrane Description Moist Sensory Perception Dre No impairment Moisture Dre Rarely moist Activity Dre Bedfast Mobility Dre Slightly limited Nutrition Dre Probably inadequate Friction and Shear Dre Potential problem Dre Score 16 Hospital Acquired Pressure Injury Risk Low risk (score 15-18) Antecubital Left 20 gauge Peripheral IV Activity: Assessed Peripheral IV Dressing Condition: Clean, Dry, Intact Peripheral IV Site Condition: No complications Forearm Right 01/01/2022 20 gauge Peripheral IV Activity: Assessed Peripheral IV Dressing Condition: Clean, Dry, Intact Peripheral IV Site Condition: No complications Radial Artery Right Vascular Access Site Condition: No complications Neurological Language Able to speak clearly, Follows simple commands Neurological Symptoms Patient denies Gait Steady Extremity Movement Equal Swallowing Difficulty None Characteristics of Communication Appropriate Characteristics of Speech Clear Facial Symmetry Symmetric Level of Consciousness Alert Aspiration Risk None FERNANDO Yes Left Pupil Description Regular Right Pupil Description Regular Left Pupil Reaction Brisk Right Pupil Reaction Brisk Pupil Size, Left 3 mm Pupil Size, Right 3 mm Pupil Accommodation Left Pupil constriction Pupil Accommodation Right Pupil constriction Left Upper Extremity Strength Strong Right Upper Extremity Strength Strong Left Upper Extremity Sensation Intact Right Upper Extremity Sensation Intact CN VII Facial Expression and Symmetry Facial movement symmetrical CN IX, X Swallowing, Gag Reflex Swallowing present Violence Risk Confused No Violence Risk Irritable No Violence Risk Boisterous No Violence Risk Verbal Threats No Violence Risk Physical Threats No Violence Risk Attacking Objects No Violence Risk Predictor Score 0 Violence Risk Intervention None Violence Risk Current Interventions None Affect/Behavior Appropriate, Calm, Cooperative Orientation Oriented x 4 Activity Status ADL Awake, Repositions self, Resting, Sleeping, Watching TV Standard Safety ID band on, Allergy Band on, Call device within reach, Bed in low position, Wheels locked, Upper/Half-Length side-rails up, Phone within reach, Safety level maintained High Risk Safety Room check performed Demonstrates Correct Call Light Use Yes 01/04/2022 16:44 EDT RBC Product Ready RBC Ready for Pickup insulin lispro 6 unit(s) unit(s) 01/04/2022 16:29 EDT Blood Glucose, Capillary 219 mg/dL HI Blood Glucose Testing Reason Routine 01/04/2022 15:53 EDT Bed Bath Minimum assistance Oral Care Refused Skin Care Product Applied Skin moisturizer, CHG bath Linen Change Done 01/04/2022 15:17 EDT Temperature Oral 36.7 DegC Heart Rate Monitored 57 bpm LOW Respiratory Rate 18 br/min Systolic Blood Pressure NBP 143 mmHg HI Diastolic Blood Pressure NBP 54 mmHg LOW Mean Arterial Pressure (NBP) 85 mmHg Reason For Taking VItal Signs Routine Oxygen Therapy Room air Oxygen Saturation 92 % LOW Activity Status ADL Awake, Lights dimmed Beds/Devices Hospital bed Activity Assistance One assist Assistive Device None Standard Safety ID band on, Call device within reach, Bed in low position, Wheels locked, Upper/Half-Length side-rails up, Phone within reach, personal items within reach, Toileting device within reach, Safety level maintained High Risk Safety Room check performed Demonstrates Correct Call Light Use Yes 01/04/2022 14:56 EDT Cardiology Progress Note Progress Note (Modified) 01/04/2022 14:46 EDT Post Rehab Outcome Not Done: Not Appropriate at this Time (Not Done) Cardiac Rehab - Phase I Not Done (Not Done) 01/04/2022 13:32 EDT BMAT Existing Patient Condition/Safety No order for Strict Bedrest BMAT Level 1: Sit and Shake Sit, side bed/reach midline/shake hands BMAT Level 2: Stretch and Point Patient unable BMAT Mobility Level 2 01/04/2022 13:31 EDT CAM Mental Status Change & Fluctuation Not Done: See ICU flow (Not Done) CAM Inattention Not Done: See ICU flow (Not Done) CAM Disorganized Thinking Not Done: See ICU flow (Not Done) CAM Altered Level of Consciousness Not Done: See ICU flow (Not Done) Confusion Assessment Method Score Not Done: See ICU flow (Not Done) 01/04/2022 12:41 EDT Heart Rate Monitored 61 bpm Reason For Taking VItal Signs Routine Primary Pain Intensity 0 Primary Pain Nonverbal Response Nods No Pain Scale Type 0-10 Pain scale Monitor Alarms On and Limits Checked Nail Bed Color [place] Capillary Refill < 2 seconds Heart Sounds ICU S1S2 Heart Rhythm Regular Radial Pulse, Left 2+ Normal Radial Pulse, Right 2+ Normal Edema Generalized None Respirations Unlabored Respiratory Pattern Regular Nasal Symptoms None Breath Sounds Auscultated Anterior and posterior All Lobes Breath Sounds Clear, Diminished Cough and Deep Breathe Done Cough None Oxygen Therapy Room air Tracheal Position Midline Abdomen Description Non-distended Abdomen Palpation Non-Tender Bowel Continence LTC Always continent Bowel Sounds All Quadrants Present Urinary Elimination Voiding, no difficulties Urine Color Yellow Urine Description Medium amount Facial Movement Symmetric resting/crying All Extremity Description [place], Normal for ethnicity Skin Temperature Warm Temperature All Extremities Warm Skin Description [place], Normal for ethnicity Skin Integrity Pressure points intact Skin Turgor Non-Elastic Mucous Membrane Color [place] Mucous Membrane Description Moist Leg Bilateral Skin Abnormality Type: Abrasion Wound Status: Unchanged Head Skin Abnormality Type: Surgical incision Wound Status: Unchanged Antecubital Left 20 gauge Peripheral IV Activity: Assessed Peripheral IV Dressing Condition: Clean, Dry, Intact Peripheral IV Dressing Activity: Transparent dressing Peripheral IV Line Status/Patency: Flushes easily, 3ml normal saline flush Peripheral IV Site Condition: No complications Peripheral IV Equipment: PRN Adaptor Forearm Right 01/01/2022 20 gauge Peripheral IV Activity: Assessed Peripheral IV Dressing Condition: Clean, Dry, Intact Peripheral IV Dressing Activity: Transparent dressing Peripheral IV Line Status/Patency: Continuous infusion Peripheral IV Site Condition: No complications Peripheral IV Equipment: IV Pump Neurological Language Able to speak clearly Neurological Symptoms Patient denies Gait Unable to assess Extremity Movement Equal Swallowing Difficulty None Characteristics of Communication Appropriate Characteristics of Speech Clear Facial Symmetry Symmetric Level of Consciousness Alert Aspiration Risk None FERNANDO Yes Left Pupil Description Regular, Round Right Pupil Description Regular, Round Left Pupil Reaction Sluggish Right Pupil Reaction Sluggish Pupil Size, Left 3 mm Pupil Size, Right 3 mm Left Upper Extremity Strength Strong Right Upper Extremity Strength Strong Left Upper Extremity Sensation Intact Right Upper Extremity Sensation Intact CN VII Facial Expression and Symmetry Facial movement symmetrical CN IX, X Swallowing, Gag Reflex Swallowing present CAM Mental Status Change & Fluctuation No CAM Inattention No CAM Disorganized Thinking No CAM Altered Level of Consciousness No Confusion Assessment Method Score Negative Affect/Behavior Appropriate, Calm, Cooperative Orientation Oriented x 4 Activity Status ADL Repositions self, Resting Assistive Device None Standard Safety ID band on High Risk Safety Room check performed Demonstrates Correct Call Light Use Yes heparin 8.7 unit(s)/kg/hr unit(s) insulin lispro 2 unit(s) unit(s) metFORMIN 500 mg mg Dextrose 5% Premix Diluent Dextrose 5% Premix Diluent mL Eating Difficulties None 01/04/2022 12:30 EDT Heart Rate Monitored 58 bpm LOW Reason For Taking VItal Signs Routine Primary Pain Intensity 0 Primary Pain Nonverbal Response Nods No Pain Scale Type 0-10 Pain scale Monitor Alarms On and Limits Checked Heart Sounds ICU S1S2 Heart Rhythm Regular Oxygen Therapy Room air Activity Status ADL Repositions self, Resting Assistive Device None Standard Safety ID band on High Risk Safety Room check performed Demonstrates Correct Call Light Use Yes 01/04/2022 11:13 EDT Discharge To, Anticipated Skilled facility Transition Planning Note Transition Planning Ongoing Assessment 01/04/2022 11:06 EDT Blood Glucose, Capillary 148 mg/dL HI Blood Glucose Testing Reason Routine Temperature Oral 36.5 DegC Heart Rate Monitored 58 bpm LOW Respiratory Rate 18 br/min Systolic Blood Pressure NBP 96 mmHg Diastolic Blood Pressure NBP 35 mmHg <LLOW Mean Arterial Pressure (NBP) 53 mmHg Reason For Taking VItal Signs Routine Oxygen Therapy Room air Oxygen Saturation 93 % Bed Bath Refused Linen Change Patient refused 01/04/2022 10:56 EDT Heart Rate Monitored 60 bpm Cardiac Rhythm Sinus rhythm Monitoring Lead III, V1/MCL1 CT Interval 0.20 second(s) QRS Duration 0.09 second(s) QT Interval 0.45 second(s) QTc Interval 0.44 second(s) Alarms On and Functional Yes Heart Rate Alarm Set At - Low 45 Heart Rate Alarm Set At - High 120 01/04/2022 10:42 EDT Endocrinology Progress Note Progress Note 01/04/2022 9:20 EDT Radial Artery Right Vascular Access Site Condition: No complications Vascular Access Distal Pulses: Palpable 01/04/2022 8:56 EDT Apical Heart Rate 68 bpm allopurinol 300 mg mg amLODIPine 10 mg mg aspirin 81 mg mg citalopram 10 mg mg insulin glargine 25 unit(s) unit(s) insulin lispro 4 unit(s) unit(s) magnesium sulfate 2 gram(s) gram(s) metoprolol 50 mg mg mupirocin topical 1 femi femi potassium chloride 40 mEq mEq predniSONE 10 mg mg vitamin A [id number] unit(s) unit(s) 01/04/2022 8:39 EDT Heart Rate Monitored 59 bpm LOW Reason For Taking VItal Signs Routine Primary Pain Intensity 0 Primary Pain Nonverbal Response Nods No Pain Scale Type 0-10 Pain scale Monitor Alarms On and Limits Checked Nail Bed Color [place] Capillary Refill < 2 seconds Heart Sounds ICU S1S2 Heart Rhythm Regular Radial Pulse, Left 2+ Normal Radial Pulse, Right 2+ Normal Edema Generalized None Cardiac Rhythm Sinus rhythm Respirations Unlabored Respiratory Pattern Regular Nasal Symptoms None Breath Sounds Auscultated Anterior and posterior All Lobes Breath Sounds Clear, Diminished Cough and Deep Breathe Done Cough None Oxygen Therapy Room air Tracheal Position Midline Abdomen Description Non-distended Abdomen Palpation Non-Tender Bowel Continence LTC Always continent Bowel Sounds All Quadrants Present (Modified) Urinary Elimination Voiding, no difficulties Urine Color Yellow Urine Description Medium amount Facial Movement Symmetric resting/crying All Extremity Description [place], Normal for ethnicity Skin Temperature Warm Temperature All Extremities Warm Skin Description [place], Normal for ethnicity Skin Integrity Pressure points intact Skin Turgor Non-Elastic Mucous Membrane Color [place] Mucous Membrane Description Moist Leg Bilateral Wound Status: No complications Head Skin Abnormality Type: Surgical incision Incision, Wound Dressing/Activity: Open to air Wound Status: No complications Antecubital Right 20 gauge Peripheral IV Activity: Discontinued Peripheral IV Removal: Adhesive bandage, Catheter intact, no resistance, Hemostasis within expectedtimeframe Peripheral IV Removal Reason: Site change Antecubital Left 20 gauge Peripheral IV Activity: Assessed Peripheral IV Dressing Condition: Clean, Dry, Intact Peripheral IV Dressing Activity: Transparent dressing Peripheral IV Line Status/Patency: Flushes easily, 3ml normal saline flush Peripheral IV Site Condition: No complications Peripheral IV Equipment: PRN Adaptor Forearm Right 01/01/2022 20 gauge Peripheral IV Activity: Assessed Peripheral IV Dressing Condition: Clean, Dry, Intact Peripheral IV Dressing Activity: Transparent dressing Peripheral IV Line Status/Patency: Continuous infusion Peripheral IV Site Condition: No complications Peripheral IV Equipment: IV Pump Neurological Language Able to speak clearly Neurological Symptoms Patient denies Gait Unable to assess Extremity Movement Equal Swallowing Difficulty None Characteristics of Communication Appropriate Characteristics of Speech Clear Facial Symmetry Symmetric Level of Consciousness Alert Aspiration Risk None FERNANDO No Left Pupil Description Regular, Round Right Pupil Description Regular, Round Left Pupil Reaction Sluggish Right Pupil Reaction Brisk Pupil Size, Left 2 mm Pupil Size, Right 2 mm Left Upper Extremity Strength Strong Right Upper Extremity Strength Strong Left Upper Extremity Sensation Intact Right Upper Extremity Sensation Intact CN VII Facial Expression and Symmetry Facial movement symmetrical CN IX, X Swallowing, Gag Reflex Swallowing present CAM Mental Status Change & Fluctuation No CAM Inattention No CAM Disorganized Thinking No CAM Altered Level of Consciousness No Confusion Assessment Method Score Negative Reza Screen Daily Violence Risk Confused No Violence Risk Irritable No Violence Risk Boisterous No Violence Risk Verbal Threats No Violence Risk Physical Threats No Violence Risk Attacking Objects No Violence Risk Predictor Score 0 Violence Risk Intervention None Violence Risk Current Interventions None Affect/Behavior Appropriate, Calm, Cooperative Orientation Oriented x 4 Activity Status ADL Repositioned right side, Repositions self, Resting Assistive Device None Standard Safety ID band on High Risk Safety Room check performed Demonstrates Correct Call Light Use Yes heparin 8.7 unit(s)/kg/hr unit(s) Dextrose 5% Premix Diluent Dextrose 5% Premix Diluent mL Eating Difficulties None 01/04/2022 8:26 EDT potassium chloride Not Done: Physician Order (Not Done) 01/04/2022 7:33 EDT Able To Drink Order Detail No Able To Sign Consents Order Detail No Code Status Order Detail Full code IV Order Detail Yes Dialysis Schedule Order Detail N/A Has Diabetes Order Detail Yes Isolation Precautions Order Detail None Nurse Collect Order Detail 0 Oxygen Order Detail Yes Order Detail N/A Prior Valve Replacement Order Detail No Transport Mode Order Detail MTT with Monitor Beam Department Supervisor Details Form Beam Department Supervisor Details Form 01/04/2022 7:11 EDT Blood Glucose, Capillary 180 mg/dL HI Blood Glucose Testing Reason Routine Heart Rate Monitored 65 bpm Respiratory Rate 18 br/min Systolic Blood Pressure NBP 150 mmHg HI Diastolic Blood Pressure NBP 69 mmHg Reason For Taking VItal Signs Routine Oxygen Therapy Room air Oxygen Saturation 92 % LOW Activity Status ADL Lights dimmed, Repositions self Beds/Devices Hospital bed Activity Assistance One assist Assistive Device None Standard Safety ID band on, Call device within reach, Bed in low position, Wheels locked, Upper/Half-Length side-rails up, Phone within reach, personal items within reach, Safety level maintained, Hazards removed from floor, Precautions maintained High Risk Safety Room check performed Demonstrates Correct Call Light Use Yes 01/04/2022 7:00 EDT Urine Voided 250 mL 01/04/2022 6:56 EDT Heart Rate Monitored 58 bpm LOW Cardiac Rhythm Sinus rhythm Monitoring Lead III, V1/MCL1 CT Interval 0.18 second(s) QRS Duration 0.09 second(s) QT Interval 0.47 second(s) QTc Interval 0.45 second(s) Alarms On and Functional Yes Heart Rate Alarm Set At - Low 45 Heart Rate Alarm Set At - High 120 01/04/2022 5:47 EDT Radial Artery Right Vascular Access Site Condition: No complications Vascular Access Distal Pulses: Palpable Vascular Access Dressing Activity: Bandaid dressing 01/04/2022 5:40 EDT isosorbide mononitrate 30 mg mg levothyroxine 50 mcg mcg 01/04/2022 5:30 EDT Temperature Oral 36.4 DegC Heart Rate Monitored 53 bpm LOW Respiratory Rate 18 br/min Systolic Blood Pressure NBP 148 mmHg HI Diastolic Blood Pressure NBP 73 mmHg Reason For Taking VItal Signs Routine Primary Pain Intensity 0 Primary Pain Nonverbal Response Nods No Pain Scale Type 0-10 Pain scale Nail Bed Color [place] Capillary Refill < 2 seconds Heart Sounds ICU S1S2 Heart Rhythm Regular Radial Pulse, Left 2+ Normal Radial Pulse, Right 2+ Normal Edema Generalized None Cardiac Rhythm Sinus rhythm Respirations Unlabored Respiratory Pattern Regular Nasal Symptoms None Breath Sounds Auscultated Anterior and posterior All Lobes Breath Sounds Clear, Diminished Cough and Deep Breathe Done Cough None Oxygen Therapy Room air Oxygen Saturation 95 % Abdomen Description Non-distended Abdomen Palpation Non-Tender Passing Flatus Yes Bowel Movement Last Date 01/03/2022 Bowel Continence LTC Always continent Swallowing Disorder None Bowel Sounds All Quadrants Present Urinary Elimination Voiding, no difficulties Urine Color Yellow Urine Description Medium amount Facial Movement Symmetric resting/crying All Extremity Description [place], Normal for ethnicity Skin Temperature Warm Temperature All Extremities Warm Skin Description Normal for ethnicity Skin Integrity Pressure points intact Skin Turgor Non-Elastic Mucous Membrane Color [place] Mucous Membrane Description Moist Leg Bilateral Skin Abnormality Type: Abrasion Incision, Wound Dressing/Activity: Open to air Wound Status: No complications Head Skin Abnormality Type: Surgical incision Incision, Wound Dressing/Activity: Open to air Antecubital Right 20 gauge Peripheral IV Activity: Assessed Peripheral IV Dressing Condition: Clean, Dry, Intact Peripheral IV Dressing Activity: Transparent dressing Peripheral IV Site Condition: No complications Peripheral IV Equipment: PRN Adaptor Antecubital Left 20 gauge Peripheral IV Activity: Assessed Peripheral IV Dressing Condition: Clean, Dry, Intact Peripheral IV Dressing Activity: Transparent dressing Peripheral IV Site Condition: No complications Peripheral IV Equipment: PRN Adaptor Forearm Right 01/01/2022 20 gauge Peripheral IV Activity: Assessed Peripheral IV Dressing Condition: Clean, Dry, Intact Peripheral IV Dressing Activity: Transparent dressing Peripheral IV Line Status/Patency: Continuous infusion Peripheral IV Site Condition: No complications Peripheral IV Equipment: IV Pump Neurological Language Able to speak clearly Neurological Symptoms Patient denies Gait Unable to assess Extremity Movement Equal Swallowing Difficulty None Characteristics of Communication Appropriate Characteristics of Speech Clear Facial Symmetry Symmetric Level of Consciousness Alert Aspiration Risk None FERNANDO No Left Pupil Description Regular, Round Right Pupil Description Regular, Round Left Pupil Reaction Sluggish Right Pupil Reaction Brisk Pupil Size, Left 2 mm Pupil Size, Right 2 mm Left Upper Extremity Strength Strong Right Upper Extremity Strength Strong Left Upper Extremity Sensation Intact Right Upper Extremity Sensation Intact CN VII Facial Expression and Symmetry Facial movement symmetrical CN IX, X Swallowing, Gag Reflex Swallowing present CAM Mental Status Change & Fluctuation No CAM Inattention No CAM Disorganized Thinking No CAM Altered Level of Consciousness No Confusion Assessment Method Score Negative Reza Screen Daily History of Fall in Last 3 Months Reza No Presence of Secondary Diagnosis Reza Yes Use of Ambulatory Aid Reza None, bedrest, wheelchair, nurse IV/PRN Adapter Fall Risk Reza Yes Gait Weak or Impaired Fall Risk Reza Normal, bedrest, immobile Mental Status Fall Risk Reza Oriented to own ability Reza Fall Risk Score 35 Participative in Fall Prevention Yes Violence Risk Confused No Violence Risk Irritable No Violence Risk Boisterous No Violence Risk Verbal Threats No Violence Risk Physical Threats No Violence Risk Attacking Objects No Violence Risk Predictor Score 0 Violence Risk Intervention None Violence Risk Current Interventions None Affect/Behavior Appropriate, Calm, Cooperative Orientation Oriented x 4 Activity Status ADL Repositions self Assistive Device None Standard Safety ID band on High Risk Safety Room check performed Demonstrates Correct Call Light Use Yes heparin 8.7 unit(s)/kg/hr unit(s) Dextrose 5% Premix Diluent Dextrose 5% Premix Diluent mL Eating Difficulties None 01/04/2022 4:24 EDT WBC 11.8 10^3/mcL HI RBC 4.28 10^6/mcL LOW Hgb 12.4 G/dL LOW Hct 37.7 % LOW MCV 88.2 fL MCH 28.9 pg MCHC 32.8 G/dL RDW 15.6 % HI Platelet 278 10^3/mcL MPV 8.5 fL Monocyte Distribution Width Not Performed Neutrophil %, Manual 76.0 % HI Lymphocyte %, Manual 18.0 % LOW Monocyte %, Manual 6.0 % Eosinophil %, Manual 0.0 % Basophil %, Manual 0.0 % Nucleated RBC 0.0 /100 WBC NA Neutrophil, Abs Manual 9.0 10^3/mcL HI Lymphocyte, Abs Manual 2.1 10^3/mcL Monocyte, Abs Manual 0.7 10^3/mcL Eosinophil, Abs Manual 0.0 10^3/mcL Basophil, Abs Manual 0.0 10^3/mcL RBC Morph See Below Platelet Estimate Normal Platelet Clumps Few Heparin dose (APTT) Heparin IV APTT 51.5 seconds HI Glucose Level 187 mg/dL HI Sodium Level 138 mEq/L Potassium Level 3.9 mEq/L Chloride 106 mEq/L CO2 23 mEq/L Electrolyte Balance 9.0 mEq/L BUN 27.0 mg/dL HI Creatinine Lvl (s) 1.63 mg/dL HI BUN/Creatinine Ratio 16.6 ratio Calcium Lvl 8.9 mg/dL Magnesium Lvl 1.7 mg/dL Total Protein 6.6 G/dL Albumin Level 3.3 G/dL Globulin 3.3 G/dL A/G Ratio 1.0 ratio Bili Total 1.00 mg/dL Alk Phos 82 U/L AST/SGOT 16 U/L ALT/SGPT 15 U/L GFR Non- 41 ml/min/1.73sqm NA GFR 50 ml/min/1.73sqm NA Creatinine Clearance Calc 25.38 mL/min Slide Review Man Indicated 01/04/2022 3:11 EDT Heart Rate Monitored 54 bpm LOW Cardiac Rhythm Sinus rhythm Monitoring Lead III, V1/MCL1 CT Interval 0.20 second(s) QRS Duration 0.09 second(s) QT Interval 0.48 second(s) QTc Interval 0.46 second(s) Alarms On and Functional Yes Heart Rate Alarm Set At - Low 45 Heart Rate Alarm Set At - High 120 01/04/2022 2:33 EDT Activity Status ADL Repositions self, Resting Standard Safety ID band on, Call device within reach, Bed in low position, Wheels locked, Upper/Half-Length side-rails up, Phone within reach, personal items within reach, Assistive devices within reach High Risk Safety Room check performed Demonstrates Correct Call Light Use Yes 01/04/2022 1:45 EDT Activity Status ADL Repositions self, Resting Standard Safety ID band on, Call device within reach, Bed in low position, Wheels locked, Upper/Half-Length side-rails up, Phone within reach, personal items within reach, Assistive devices within reach High Risk Safety Room check performed Demonstrates Correct Call Light Use Yes 01/04/2022 0:45 EDT Activity Status ADL Repositions self, Resting Standard Safety ID band on, Call device within reach, Bed in low position, Wheels locked, Upper/Half-Length side-rails up, Phone within reach, personal items within reach, Assistive devices within reach High Risk Safety Room check performed Demonstrates Correct Call Light Use Yes . Assessment and Plan [place] [employer]esthesi[employer] (ASA) physical status classification: Class IV. Anesthetic Preoperative Plan Premedication: intravenous. Anesthetic technique: General. Induction: intravenously. Maintenance airway: Oral endotracheal tube. Special techniques: Warming device. Special Monitoring: Arterial line, Central venous catheter, Continuous transesophageal echocardiogram. Postoperative pain management: Per surgeon. Risks discussed: nausea, vomiting, headache, sore throat, dental injury, hypotension, allergic reaction, serious complications. Informed consent: signed by patient. Beta Nicole: Beta Nicole Taken Within 24 Hrs: Yes. Digitally Signed by LINN RICHARD DO on 01/05/2022 06:09 AM Digitally Signed by LINN RICHARD DO on 01/05/2022 07:59 AM [facility] Evaluation + Plan note Future Appointments Appointment Date:02/07/2022 01:00:00 PM Scheduled Provider:HUNTER FALCON Location:[facility] Appointment Type:[facility] Post Op Follow Up Appointment Date:02/15/2022 10:00:00 AM Scheduled Provider: Location:[facility] Appointment Type:[facility] Hospital Follow Up Future Scheduled Tests Radiology* XR Chest 2 Views (PA & Lateral) 02/07/22 [facility] Evaluation note* Diagnosis Optic nerve edema- Primary Papilloedema, unspecified [facility] Diagnosis Vision changes- Primary Unspecified visual disturbance Photosensitivity Acute dermatitis due to solar radiation PVD (peripheral vascular disease) ([facility]) Peripheral vascular disease, unspecified Type 2 diabetes mellitus with other specified complication, without long-term current use of insulin ([facility]) group home current use of systemic steroids Encounter for long-term (current) use of steroids Vitamin D deficiency Unspecified vitamin D deficiency [facility] Diagnosis Onset Date Resolution Status Renal mass acute Calculous cholecystitis with obstruction resolved Choledocholithiasis resolved Cholecystostomy care acute Renal mass [facility] Work Phone: Evaluation note* Diagnosis Onset Date Resolution Status Renal mass acute Calculous cholecystitis with obstruction resolved Choledocholithiasis resolved Cholecystostomy care acute Renal mass acute Cholecystostomy care [facility] Work Phone: Evaluation note* Diagnosis Screening for genitourinary condition- Primary Screening for other and unspecified genitourinary condition Gross hematuria Left renal mass Unspecified disorder of kidney and ureter documented in this encounter [facility] note* Diagnosis Gross hematuria documented in this encounter [facility] note* Diagnosis Gross hematuria- Primary Screening for genitourinary condition Screening for other and unspecified genitourinary condition documented in this encounter [facility] note* Diagnosis Gross hematuria- Primary documented in this encounter [facility] note* Diagnosis Gross hematuria- Primary Left renal mass Unspecified disorder of kidney and ureter documented in this encounter [facility] course Narrative No data available for this section [facility] Hospital Discharge instructions* Instructions* Ammy Vicente MD - 02/09/2021 DO NOT: 1. Remove shield unless instructed to place eye drops 2. Bathe until seen by physician 3. Bend beneath waist or lift greater than 10 pounds 4. Take aspirin until seen by physician 5. Drive until directed by physician Ok to take tylenol as directed as needed Start home medications as directed by primary care physician. Call office with questions or concerns. Follow up in office next day as directed. documented in this [facility] Work Phone: Hospital Discharge instructions No data available for this section [facility] Progress note No data available for this section [facility] Reason for referral (narrative)No reason for referral information [facility] Work Phone: Summary Purpose Family History No Family History Records Found Relationship Condition Age at Onset Recorded Date/T jay mother Diabetes mellitus Unknown father Diabetes mellitus Unknown Cardiac disease Unknown Advance Directives No Advanced Directives Records FoundLatest Code Status on File Code Status Date Activated Date Inactivated Comments Full Code 02/09/2021 11:01 AM Full Code 02/09/2021 8:14 AM 02/09/2021 11:01 AM Documents on File Type Date Recorded 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 Yes January 11, 2024 7:47am Advance Directive Response Recorded Date/ Time Do you have a Healthcare Power of Bowling Pin Setters Installer? Yes October 15, 2024 5:49pm Name of Medical Power of Bowling Pin Setters Installer angelic durán October 15, 2024 5:49pm Hospital Course Note HNO ID: [id number] Author: Emily baltazar (Cassia Prescott DO Service: General Surgery Author Type: Resident Type: Discharge Summary Filed: 09/11/2019 10:53 AM Note Text: Attestation signed by Ryan Allen at 09/11/2019 3:45 PM .Attending Note I personally saw and examined the patient. I reviewed the resident's note. I agree with the resident's assessment and plan unless otherwise noted. Signature: Ryan Allen MD Date: 09/11/2019 Time: 3:45 PM DISCHARGE SUMMARY PATIENT NAME: Elizabeth Modi Code Status: Not on file Highest Readmission Risk Score: 24 The 30 day readmissions risk score is derived from an internally validated risk model which evaluates patient level characteristics, utilization history, medication orders and lab results up until the day of discharge. Patients with a score of 40 or above are considered highes (more content not included)... Note HNO ID: [id number] Author: Teo chase (Res) DO Roger Service: General Surgery Author Type: Resident Type: Discharge Summary Filed: 12/11/2019 4:10 PM Note Text: Attestation signed by Ryan Allen at 12/11/2019 5:20 PM Attending Note I discussed with resident. The patient was not examined by the attending. I reviewed the resident's note. I agree with the resident's assessment and plan unless otherwise noted. I did not examine the patient at discharge but had seen him earlier in the day. Ready for discharge with wound care follow-up. Can follow up in our office as well within a few weeks Signature: Ryan Allen MD Date: 12/11/2019. Time: 5:19 PM DISCHARGE SUMMARY PATIENT NAME: Elizabeth Modi Code Status: Not on file Highest Readmission Risk Score: 24 The 30 day readmissions risk score is derived from an internally (more content not included)... Reason for Referral Specialty Diagnoses / Procedures Referred By Barb t Referred To Contact CT IMAGING Diagnoses Gross hematuria Procedures CT UROGRAM WO/W IVCON CT ABD & PELVIS W/WO CONTRST 1+ BODY Nikolai Fisher PA-C [address] [place] [address] [place] [address] Referral ID Status Reason Start Date Expiration Date Visits Requested Visits Authorized [id number] Authorized Auto-Generat ed Referral 06/25/2024 07/18/2025 1 1 Specialty Diagnoses / Procedures Referred By Contalanna t Referred To Contact Ophthalmology Diagnoses Vision changes Photosensitivity Procedures CONSULT TO OPHTHALMOLOGY OFFICE/OUTPATIENT [facility] MDM 60-74 MINUTES Shana Ga MD [address] [place] [id number] Referral ID Status Reason Start Date Expiration Date Visits Requested Visits Authorized [id number] Authorized PCP Requested Referral 09/01/2022 09/01/2023 1 1 Chief Complaint and Reason for Visit Chief Complaint ACUTE CHOLEDONCHLITH IASIS/?CHOLECYSTITIS ACUTE CHOLEDONCHLITHIASIS/?CHOLECYSTITIS ACUTE CHOLEDONCHLITHIASIS/?CHOLECYSTITIS ACUTE CHOLEDONCHLITHIASIS/?CHOLECYSTITIS ACUTE CHOLEDONCHLITHIASIS/?CHOLECYSTITIS ACUTE CHOLEDONCHLITHIASIS/?CHOLECYSTITIS ACUTE CHOLEDONCHLITHIASIS/?CHOLECYSTITIS ACUTE CHOLEDONCHLITHIASIS/?CHOLECYSTITIS ACUTE CHOLEDONCHLITHIASIS/?CHOLECYSTITIS HOSP F/U Calculous cholecystitis with obstruction GERRI TUBE INJECTION, CHOLANGIOGRAM (<1 HR) Reason for Visit Renal mass Calculous cholecystitis with obstruction Choledocholithiasis Cholecystostomy care Renal mass Chief Complaint ACUTE CHOLEDONCHLITH IASIS/?CHOLECYSTITIS ACUTE CHOLEDONCHLITHIASIS/?CHOLECYSTITIS ACUTE CHOLEDONCHLITHIASIS/?CHOLECYSTITIS ACUTE CHOLEDONCHLITHIASIS/?CHOLECYSTITIS ACUTE CHOLEDONCHLITHIASIS/?CHOLECYSTITIS ACUTE CHOLEDONCHLITHIASIS/?CHOLECYSTITIS ACUTE CHOLEDONCHLITHIASIS/?CHOLECYSTITIS ACUTE CHOLEDONCHLITHIASIS/?CHOLECYSTITIS ACUTE CHOLEDONCHLITHIASIS/?CHOLECYSTITIS HOSP F/U Calculous cholecystitis with obstruction GERRI TUBE INJECTION, CHOLANGIOGRAM (<1 HR) FLUOROSCOPY 01/30 E-ORDER Reason for Visit Renal mass Calculous cholecystitis with obstruction Choledocholithiasis Cholecystostomy care Renal mass Cholecystostomy care Chief Complaint Admit Date 3 M FU June 06, 2024 3:30pm USP LAB WORK June 17 1:00pm NEW CONCERN June 17, 2024 3:17pm LABWORK June 20, 2024 5: 00am USP LAB WORK June 27, 2024 5:50am MONTHLY EXAM July 05, 2024 3 :48pm MONTHLY EXAM July 23, 2024 4 :43pm USP LAB WORK July 24, 2024 4:00am LABWORK August 01, 2024 2:00pm LABWORK August 21, 2024 5:00 am 4 M FU September 06, 2024 1:3 8pm Reason for Visit Admit Date Fecal incontinence June 06, 2024 3:30pm S/P ERCP June 06, 2024 3:30pm Fecal incontinence September 06, 2024 1:3 8pm S/P ERCP September 06, 2024 1:3 8pm Chief Complaint Admit Date USP LAB WORK June 17 1:00pm NEW CONCERN June 17, 2024 3:17pm LABWORK June 20, 2024 5: 00am USP LAB WORK June 27, 2024 5:50am MONTHLY EXAM July 05, 2024 3 :48pm MONTHLY EXAM July 23, 2024 4 :43pm USP LAB WORK July 24, 2024 4:00am LABWORK August 01, 2024 2:00pm LABWORK August 21, 2024 5:00 am MONTHLY EXAM September 03, 2024 6:1 1pm NEW CONCERN September 05, 2024 1:1 5pm 4 M FU September 06, 2024 1:3 8pm LABWORK September 18, 2024 5:00 am Reason for Visit Admit Date Fecal incontinence September 06, 2024 1:3 8pm S/P ERCP September 06, 2024 1:3 8pm Chief Complaint Admit Date LABWORK June 20, 2024 5: 00am USP LAB WORK June 27, 2024 5:50am MONTHLY EXAM July 05, 2024 3 :48pm MONTHLY EXAM July 23, 2024 4 :43pm USP LAB WORK July 24, 2024 4:00am LABWORK August 01, 2024 2:00pm LABWORK August 21, 2024 5:00 am MONTHLY EXAM September 03, 2024 6:1 1pm NEW CONCERN September 05, 2024 1:1 5pm 4 M FU September 06, 2024 1:3 8pm LABWORK September 18, 2024 5:00 am fall October 15, 2024 3:5 7pm Chief Complaint Admit Date MONTHLY EXAM July 23, 2024 4 :43pm USP LAB WORK July 24, 2024 4:00am LABWORK August 01, 2024 2:00pm LABWORK August 21, 2024 5:00 am MONTHLY EXAM September 03, 2024 6:1 1pm NEW CONCERN September 05, 2024 1:1 5pm 4 M FU September 06, 2024 1:3 8pm LABWORK September 18, 2024 5:00 am fall October 15, 2024 3:5 7pm FU [facility] 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 October 16, 2024 7:59am LABWORK October 23, 2024 5:00am Reason for Visit Admit Date Fecal incontinence September 06, 2024 1:3 8pm S/P ERCP September 06, 2024 1:3 8pm Atherosclerotic heart diseas e of [place] coronary artery without angina pectoris October 16, 2024 7:59am Essential hypertension October 16, 2024 7:59am Hyperlipidemia October 16, 2024 7:5 9am Paroxysmal atrial fibrillation September 7:59am Chief Complaint Admit Date LABWORK August 21, 2024 5:00 am MONTHLY EXAM September 03, 2024 6:1 1pm NEW CONCERN September 05, 2024 1:1 5pm 4 M FU September 06, 2024 1:3 8pm LABWORK September 18, 2024 5:00 am Monthly Exam September 24, 2024 3:41 pm fall October 15, 2024 3:5 7pm FU [place] 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 October 16, 2024 7:59am LABWORK October 23, 2024 5:00am USP LAB WORK November 07, 2024 5:0 0am LABWORK November 20, 2024 5:00a m Chief Complaint Admit Date LABWORK August 21, 2024 5:00 am MONTHLY EXAM September 03, 2024 6:1 1pm NEW CONCERN September 05, 2024 1:1 5pm 4 M FU September 06, 2024 1:3 8pm LABWORK September 18, 2024 5:00 am Monthly Exam September 24, 2024 3:41 pm New Concern October 01, 2024 3:2 5pm fall October 15, 2024 3:5 7pm FU NH 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 October 16, 2024 7:59am LABWORK October 23, 2024 5:00am USP LAB WORK November 07, 2024 5:0 0am LABWORK November 20, 2024 5:00a m Chief Complaint Admit Date LABWORK September 18, 2024 5:00 am Monthly Exam September 24, 2024 3:41 pm New Concern October 01, 2024 3:2 5pm fall October 15, 2024 3:5 7pm FU NH 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 October 16, 2024 7:59am LABWORK October 23, 2024 5:00am USP LAB WORK November 07, 2024 5:0 0am LABWORK November 20, 2024 5:00a m MONTHLY EXAM December 03, 2024 3:30 pm LABWOKR December 18, 2024 5:00a m Reason for Visit Admit Date Atherosclerotic heart diseas e of [place] coronary artery without angina pectoris October 16, 2024 7:59am Essential hypertension October 16, 2024 7:59am Hyperlipidemia October 16, 2024 7:5 9am Paroxysmal atrial fibrillation September 7:59am Additional Source Comments (unrecognized sect ion and content) No Status Records FoundNo Status Records FoundNo Status Records FoundNo Status Records FoundNo Status Records FoundNo Status Records FoundNo Status Records FoundNo Status Records FoundNo Status Records FoundNo Status Records FoundNo Status Records Found INFORMATION SOURCE (unrecogn ized section and content) DATE CREATED AUTHOR 05/19/2020 [facility] DATE CREATED AUTHOR AUTHOR'S ORGANIZ ATION 05/21/2020 [facility] DATE CREATED AUTHOR AUTHOR'S ORGANIZ ATION 02/11/2021 [facility] DATE CREATED AUTHOR AUTHOR'S ORGANIZ ATION 08/05/2021 [facility] DATE CREATED AUTHOR AUTHOR'S ORGANIZ ATION 09/07/2021 [facility] DATE CREATED AUTHOR AUTHOR'S ORGANIZ ATION 04/15/2023 Brian Richard [facility] DATE CREATED AUTHOR AUTHOR'S ORGANIZ ATION 01/11/2024 [facility] ([place] DATE CREATED AUTHOR AUTHOR'S ORGANIZ ATION 10/06/2024 [facility] DATE CREATED AUTHOR AUTHOR'S ORGANIZ ATION 01/15/2025 [facility] DATE CREATED AUTHOR AUTHOR'S ORGANIZ ATION 01/21/2025 [facility] DATE CREATED AUTHOR AUTHOR'S ORGANIZ ATION 01/21/2025 [facility] Scheduled Active and Recently Administ ered Medications (unrecognized section and content) Medication Order 02/07/2021 02/08/2021 02/09/2021 acetaminophen (TYLENOL) tablet 1,000 mg (COMPLETED) 1,000 mg, Oral, ONCE, On Mon02/09/21 at 0830, For 1 dose, Maximum dose of acetaminophen is 4000 mg from all sources in 24 hours. Do not administer if patient has taken tylenol <4 hours earlier. Do not give if contraindicated ie. patient has active liver disease or cirrhosis., Pre-op (day of surgery) 09 (Given - Provid er: Lindsey Morales RN) famotidine (PEPCID) tablet 20 mg (COMPLETED) 20 mg, Oral, ONCE, On Mon02/09/21 at 0830, For 1 dose, Pre-op (day of surgery) 09 (Given - Provid er: Lindsey Morales RN) phenylephrine (MYDFRIN) 2.5 % ophthalmic solution 1 drop (COMPLETED) 1 drop, Right Eye, SEE ADMIN INSTRUCTIONS, Starting on Mon02/09/21 at 0810, For 3 doses, To operative eye(s) for 3 doses, 5 minutes apart, starting 30 minutes prior to surgery, Pre-op (day of surgery) 0908 (Given - Provid er: Lindsey Morales RN)0921 (Given - Provider: Lindsey Morales RN)0925 (Given - Provider: Lindsey Morales RN) sodium chloride flush 0.9 % injection 5-40 mL 5-40 mL, IntraVENous, EVERY 12 HOURS SCHEDULED (2 times per day), First dose on Mon02/09/21 at 0900, For Line Patency: Peripheral IV = 5 mL; Midline or Central Line = 10 mL/lumen. If following IV push medication, administer flush at same rate as the IV push. Flush volume is determined by type of infusion therapy being given. For non-viscous solutions use: Peripheral IV = 5 mL Midline or Central Line = 10 mL/lumen For viscous solutions (i.e. blood components, parenteral nutrition, contrast media, or after obtaining blood sample) use: Peripheral IV = 10 mL Midline or Central Line = 20 mL/lumen, Pre-op (day of surgery) 0900 (Due)2100 (Due) sodium chloride flush 0.9 % injection 5-40 mL 5-40 mL, Intravenous, EVERY 12 HOURS SCHEDULED (2 times per day), First dose on Mon02/09/21 at 1130, For Line Patency: Peripheral IV = 5 mL; Midline or Central Line = 10 mL/lumen. If following IV push medication, administer flush at same rate as the IV push. Flush volume is determined by type of infusion therapy being given. For non-viscous solutions use: Peripheral IV = 5 mL Midline or Central Line = 10 mL/lumen For viscous solutions (i.e. blood components, parenteral nutrition, contrast media, or after obtaining blood sample) use: Peripheral IV = 10 mL Midline or Central Line = 20 mL/lumen, Post-op 1130 (Due)2100 (Due) tetracaine (TETRAVISC) 0.5 % ophthalmic solution 2 drop (COMPLETED) 2 drop, Right Eye, ONCE, On Mon02/09/21 at 0830, For 1 dose, In the OR prior to surgery., Pre-op (day of surgery) 0908 (Given - Provid er: Lindsey Morales RN) tropicamide (MYDRIACYL) 1 % ophthalmic solution 1 drop (COMPLETED) 1 drop, Right Eye, SEE ADMIN INSTRUCTIONS, Starting on Mon02/09/21 at 0810, For 3 doses, To operative eye(s) for 3 doses, 5 minutes apart, starting 30 minutes prior to surgery, Pre-op (day of surgery) 09 (Given - Provid er: Lindsey Morales RN)09 (Given - Provider: Lindsey Morales RN)09 (Given - Provider: Lindsey Morales RN) Continuous Medication Order 02/07/2021 02/08/2021 02/09/2021 lactated ringers infusion IntraVENous, at 50 mL/hr, CONTINUOUS, Starting on Mon02/09/21 at 0830, Upon admission to sameday - please start iv if patient does not have iv access. Use 500ml NS for patients on dialysis., Pre-op (day of surgery) 0830 (Due) PRN Medication Order 02/07/2021 02/08/2021 02/09/2021 0.9 % sodium chloride bolus 500 mL (6.72 mL/kg), IntraVENous, at 250 mL/hr, Administer over 2 Hours, ONCE PRN, Nausea, Starting on Mon02/09/21 at 0926, For 1 dose, PACU only 0.9 % sodium chloride infusion 25 mL, IntraVENous, at 100 mL/hr, PRN, If patient receiving piggyback infusions without ordered maintenance IV fluids or with frequent/long duration piggyback infusions, Starting on Mon02/09/21 at 0810, Administer at the same rate as the piggyback being infused., Pre-op (day of surgery) 0.9 % sodium chloride infusion 25 mL, Intravenous, at 100 mL/hr, PRN, If patient receiving piggyback infusions without ordered maintenance IV fluids or with frequent/long duration piggyback infusions, Starting on Mon02/09/21 at 1100, Administer at the same rate as the piggyback being infused., Post-op ALPRAZolam (NIRAVAM) dissolvable tablet 0.25 mg 0.25 mg, Oral, PRN, Anxiety, Starting on Mon02/09/21 at 0810, Pre-op (day of surgery) diphenhydrAMINE (BENADRYL) injection 12.5 mg 12.5 mg, IntraVENous, ONCE PRN, Itching, Starting on Mon02/09/21 at 0926, For 1 dose, for use Sameday and, PACU only fentaNYL (SUBLIMAZE) injection 25 mcg 25 mcg, IntraVENous, EVERY 5 MIN PRN, Pain Moderate (4-6), Starting on Mon02/09/21 at 0926, For 3 doses, Phase I and Phase II- Initial therapy for moderate pain (4-6). Restricted to a 50 minute time frame starting when the patient can verbally state their pain score. If after 2 doses the pain score does not decrease by more than one point, then go to secondary medication. Ifsecondary medications are utilized, do not return to initial therapy medications. SDS and, PACU only fentaNYL (SUBLIMAZE) injection 50 mcg 50 mcg, IntraVENous, EVERY 5 MIN PRN, Pain Severe (7-10), Starting on Mon02/09/21 at 0926, For 3 doses, Phase I or Phase II- Initial therapy for severe pain (7-10). Restricted to a 50 minute time frame starting when the patient can verbally state their pain score. If after 2 doses the pain score does not decrease by more than one point, then go to secondary medication. If secondary medications are utilized, do not return to initial therapy medications.Sameday and, PACU only hydrALAZINE (APRESOLINE) injection 5 mg 5 mg, IntraVENous, EVERY 10 MIN PRN, High Blood Pressure, Starting on Mon02/09/21 at 0926, PRN for SBP > 160 for 2 consecutive measurements, and if one of the following conditions is met: 1) If IV labetolol is ineffective. 2) If HR is under 60. 3) If patient has heart block, COPD or asthma. If both labetalol and hydralazine ineffective, notify anesthesiologist. for use Sameday and, PACU only HYDROmorphone (DILAUDID) injection 0.25 mg 0.25 mg, IntraVENous, EVERY 5 MIN PRN, Pain Moderate (4-6), Starting on Mon02/09/21 at 0926, For 4 doses, Phase I - Secondary therapy to be used after initial therapy medication doses are ineffective (pain score does not decrease by more than 1 point). If secondary medications are utilized, do not return to initial therapy medications., PACU only HYDROmorphone (DILAUDID) injection 0.5 mg 0.5 mg, IntraVENous, EVERY 5 MIN PRN, Pain Severe (7-10), Starting on Mon02/09/21 at 0926, For 4 doses, Phase I - Secondary therapy to be used after initial therapy medication doses are ineffective (pain score does not decrease by more than 1 point). If secondary medications are utilized, do not return to initial therapy medications., PACU only insulin lispro (HUMALOG) injection vial 0-20 Units 0-20 Units, Subcutaneous, PRN, Based on Glucose Results, Starting on Mon02/09/21 at 0810, For 3 doses, Medium Dose Corrective Algorithm Glucose: Dose: If <180 No Insulin 181-240 6 Units 241-300 10 Units 301-350 12 Units 351-400 16 Units Over 400 20 Units, Pre-op (day of surgery) 0920 (Given - Provid er: Lindsey Morales RN)1128 (Given - Provider: Thu Roche RN - Comment: BS 185) labetalol (NORMODYNE;TRANDATE) injection 5 mg 5 mg, IntraVENous, EVERY 10 MIN PRN, High Blood Pressure, Starting on Mon02/09/21 at 0926, PRN for SBP >160 for 2 consecutive measurements, if HR is 60 or greater. If beta nicole is contraindicated (HR less than 60, heart block, COPD or asthma) use hydralazine IV order. for use Sameday and, PACU only lidocaine PF 1 % injection 1 mL 1 mL, Intradermal, ONCE PRN, IV start, Starting on Mon02/09/21 at 0810, For 1 dose, Pre-op (day of surgery) meperidine (DEMEROL) injection 12.5 mg 12.5 mg, IntraVENous, EVERY 5 MIN PRN, Shivering, , Starting on Mon02/09/21 at 0926, May give every 5 minutes to max of 50mg. for use Sameday and, PACU only ondansetron (ZOFRAN) injection 4 mg 4 mg, IntraVENous, ONCE PRN, Nausea, Starting on Mon02/09/21 at 0926, For 1 dose, Initial antiemetic therapy. For use sameday and, PACU only ondansetron (ZOFRAN) injection 4 mg(Linked Group 1) 4 mg, IntraVENous, EVERY 6 HOURS PRN, Nausea, Vomiting, Starting on Mon02/09/21 at 1100, Administer if oral route cannot be used., Post-op ondansetron (ZOFRAN-ODT) disintegrating tablet 4 mg(Linked Group 1) 4 mg, Oral, EVERY 8 HOURS PRN, Nausea, Vomiting, Starting on Mon02/09/21 at 1100, Post-op oxyCODONE (ROXICODONE) immediate release tablet 10 mg(Linked Group 2) 10 mg, Oral, PRN, Pain Severe (7-10), Starting on Mon02/09/21 at 0926, For 1 dose, PHASE II, PACU only oxyCODONE (ROXICODONE) immediate release tablet 5 mg(Linked Group 2) 5 mg, Oral, PRN, Pain Moderate (4-6), Starting on Mon02/09/21 at 0926, For 1 dose, PHASE II, PACU only promethazine (PHENERGAN) injection 6.25 mg 6.25 mg, IntraVENous, ONCE PRN, Nausea, Starting on Mon02/09/21 at 0926, For 1 dose, Caution if used IV:Check IV site for infiltrate prior to and during administration. Secondary antiemetic therapy. For use sameday and For IV administration, dilute to 10ml with normal saline. Must be administered over at least 10 minutes., PACU only sodium chloride flush 0.9 % injection 5-40 mL 5-40 mL, IntraVENous, PRN, Line Care, Starting on Mon02/09/21 at 0810, For Line Patency: Peripheral IV = 5 mL; Midline or Central Line = 10 mL/lumen. If following IV push medication, administer flush at same rate as the IV push. Flush volume is determined by type of infusion therapy being given. For non-viscous solutions use: Peripheral IV = 5 mL Midline or Central Line = 10 mL/lumen For viscous solutions (i.e. blood components, parenteral nutrition, contrast media, or after obtaining blood sample) use: Peripheral IV = 10 mL Midline or Central Line = 20 mL/lumen, Pre-op (day of surgery) sodium chloride flush 0.9 % injection 5-40 mL 5-40 mL, Intravenous, PRN, Line Care, Starting on Mon02/09/21 at 1100, After every IV line use, Post-op Linked Groups Order Group 1: ondansetron (ZOFRAN-ODT) disintegrating tablet 4 mgJump to med 4 mg, Oral, EVERY 8 HOURS PRN, Nausea, Vomiting, Starting on Mon02/09/21 at 1100, Post-op Or ondansetron (ZOFRAN) injection 4 mgJump to med 4 mg, IntraVENous, EVERY 6 HOURS PRN, Nausea, Vomiting, Starting on Mon02/09/21 at 1100
Administer if oral route cannot be used.
Post-op Group 2: oxyCODONE (ROXICODONE) immediate release tablet 5 mgJump to med 5 mg, Oral, PRN, Pain Moderate (4-6), Starting on Mon02/09/21 at 0926, For 1 dose
PHASE II
PACU only Or oxyCODONE (ROXICODONE) immediate release tablet 10 mgJump to med 10 mg, Oral, PRN, Pain Severe (7-10), Starting on Mon02/09/21 at 0926, For 1 dose
PHASE II
PACU only Source Comments (unrecognize d section and content) In the event this informatio n is protected by the Federal Confidentiality of Alcohol and Drug Abuse Patient Records regulations: The Federal rules restrict any use of the information to criminally investigate or prosecute any alcohol or drug abuse patient.[facility] the event this information is protected by the Federal Confidentiality of Alcohol and Drug Abuse Patient Records regulations: The Federal rules restrict any use of the information to criminally investigate or prosecute any alcohol or drug abuse patient.[facility] the event this information is protected by the Federal Confidentiality of Alcohol and Drug Abuse Patient Records regulations: The Federal rules restrict any use of the information to criminally investigate or prosecute any alcohol or drug abuse patient.[facility] the event this information is protected by the Federal Confidentiality of Alcohol and Drug Abuse Patient Records regulations: The Federal rules restrict any use of the information to criminally investigate or prosecute any alcohol or drug abuse patient.[facility] the event this information is protected by the Federal Confidentiality of Alcohol and Drug Abuse Patient Records regulations: The Federal rules restrict any use of the information to criminally investigate or prosecute any alcohol or drug abuse patient.[facility] the event this information is protected by the Federal Confidentiality of Alcohol and Drug Abuse Patient Records regulations: The Federal rules restrict any use of the information to criminally investigate or prosecute any alcohol or drug abuse patient.[facility] the event this information is protected by the Federal Confidentiality of Alcohol and Drug Abuse Patient Records regulations: The Federal rules restrict any use of the information to criminally investigate or prosecute any alcohol or drug abuse patient.[facility] the event this information is protected by the Federal Confidentiality of Alcohol and Drug Abuse Patient Records regulations: The Federal rules restrict any use of the information to criminally investigate or prosecute any alcohol or drug abuse patient.[facility] the event this information is protected by the Federal Confidentiality of Alcohol and Drug Abuse Patient Records regulations: The Federal rules restrict any use of the information to criminally investigate or prosecute any alcohol or drug abuse patient.[facility] the event this information is protected by the Federal Confidentiality of Alcohol and Drug Abuse Patient Records regulations: The Federal rules restrict any use of the information to criminally investigate or prosecute any alcohol or drug abuse patient.[facility] the event this information is protected by the Federal Confidentiality of Alcohol and Drug Abuse Patient Records regulations: The Federal rules restrict any use of the information to criminally investigate or prosecute any alcohol or drug abuse patient.[facility] the event this information is protected by the Federal Confidentiality of Alcohol and Drug Abuse Patient Records regulations: The Federal rules restrict any use of the information to criminally investigate or prosecute any alcohol or drug abuse patient.[facility] the event this information is protected by the Federal Confidentiality of Alcohol and Drug Abuse Patient Records regulations: The Federal rules restrict any use of the information to criminally investigate or prosecute any alcohol or drug abuse patient.[facility]In the event this information is protected by the Federal Confidentiality of Alcohol and Drug Abuse Patient Records regulations: The Federal rules restrict any use of the information to criminally investigate or prosecute any alcohol or drug abuse patient.[facility] Care Teams (unrecognized sec tion and content) Team Status: Active Member Role Status Dates Dr. Diana Salmeron MD Primary Care Provider Active Team Status: Inactive Member Role Status Dates Dr. Diana Salmeron MD Primary Care Provider Active Start: July 23, 2024 End: July 23, 2024 Dr. Victor M Rojas MD Attending Provider Active Start: July 23, 2024 End: July 23, 2024 Team Status: Active Member Role Status Dates Dr. Diana Salmeron MD Primary Care Provider Active Start: July 24, 2024 Victor M DAVID MD Attending Provider Active Start: July 24, 2024 Victor M DAVID MD Referring Provider Active Start: July 24, 2024 Team Status: Active Member Role Status Dates Dr. Diana Salmeron MD Primary Care Provider Active Start: August 01, 2024 Victor M DAVID MD Attending Provider Active Start: August 01, 2024 Team Status: Inactive Member Role Status Dates Dr. Diana Salmeron MD Primary Care Provider Active Start: August 21, 2024 End: August 21, 2024 Victor M DAVID MD Attending Provider Active Start: August 21, 2024 End: August 21, 2024 Team Status: Inactive Member Role Status Dates Dr. Diana Salmeron MD Primary Care Provider Active Start: September 03, 2024 End: September 03, 2024 Christina Whipple NP, TICKET COLLECTOR OR USHER-C Attending Provider Active Start: September 03, 2024 End: September 03, 2024 Team Status: Inactive Member Role Status Dates Dr. Diana Salmeron MD Primary Care Provider Active Start: September 05, 2024 End: September 05, 2024 Christina Whipple TICKET COLLECTOR OR USHER, TICKET COLLECTOR OR USHER-C Attending Provider Active Start: September 05, 2024 End: September 05, 2024 Team Status: Inactive Member Role Status Dates Dr. Diana Salmeron MD Primary Care Provider Active Start: September 06, 2024 End: September 06, 2024 Dr. Diana Salmeron MD Referring Provider Active Start: September 06, 2024 End: September 06, 2024 GILL Jefferson Attending Provider Active Start: September 06, 2024 End: September 06, 2024 Team Status: Inactive Member Role Status Dates Dr. Diana Salmeron MD Primary Care Provider Active Start: September 18, 2024 End: September 18, 2024 Victor M DAVID MD Attending Provider Active Start: September 18, 2024 End: September 18, 2024 Team Status: Inactive Member Role Status Dates Dr. Diana Salmeron MD Primary Care Provider Active Start: October 15, 2024 End: October 16, 2024 Dr. Jesse Angel DO Attending Provider Active Start: October 15, 2024 End: October 16, 2024 Dr. Jesse Angel DO Emergency Provider Active Start: October 15, 2024 End: October 16, 2024 Team Status: Inactive Member Role Status Dates Dr. Diana Salmeron MD Primary Care Provider Active Start: October 16, 2024 End: October 16, 2024 Dr. Diana Salmeron MD Referring Provider Active Start: October 16, 2024 End: October 16, 2024 Lauren Hutchison PA, PA Attending Provider Active Start: October 16, 2024 End: October 16, 2024 Team Status: Inactive Member Role Status Dates Dr. Diana Salmeron MD Primary Care Provider Active Start: October 23, 2024 End: October 23, 2024 Victor M DAVID MD Attending Provider Active Start: October 23, 2024 End: October 23, 2024 Team Status: Active Member Role Status Dates Dr. Diana Salmeron MD Primary Care Provider Active Start: November 07, 2024 Christina DAVID NP-Jamar Attending Provider Active Start: November 07, 2024 Team Status: Active Member Role Status Dates Dr. Diana Salmeron MD Primary Care Provider Active Start: June 17, 2024 Victor M DAVID MD Attending Provider Active Start: June 17, 2024 Team Status: Inactive Member Role Status Dates Dr. Diana Salmeron MD Primary Care Provider Active Start: June 17, 2024 End: June 17, 2024 Christina Whipple NP TICKET COLLECTOR OR USHER-C Attending Provider Active Start: June 17, 2024 End: June 17, 2024 Team Status: Active Member Role Status Dates Dr. Diana Salmeron MD Primary Care Provider Active Start: June 20, 2024 Victor M DAVID MD Attending Provider Active Start: June 20, 2024 Team Status: Active Member Role Status Dates Dr. Diana Salmeron MD Primary Care Provider Active Start: June 27, 2024 Victor M DAVID MD Attending Provider Active Start: June 27, 2024 Team Status: Inactive Member Role Status Dates Dr. Diana Salmeron MD Primary Care Provider Active Start: July 05, 2024 End: July 05, 2024 Christina Whipple TICKET COLLECTOR OR USHER, TICKET COLLECTOR OR USHER-C Attending Provider Active Start: July 05, 2024 End: July 05, 2024 Roller Repairer Relationship Specialty Start Date End Date Dexter Reyes Chi [address] [id number] PCP - General Gerontology 12/06/19 Ryan Rodrigues MD [address] [facility] [place] [address] Infectious Diseases 12/06/19 Yadi White, [address] [address] Urology 04/28/20 Roller Repairer Relationship Specialty Start Date End Date Diana Salmeron MD [address] [place], [place] [address] PCP - General Internal Medicine 09/01/22 Ryan Rodrigues MD [address] [facility] [place] [id number] Infectious Diseases 12/06/19 Demetris White, [address] [address] Urology 04/28/20 Isac Lucas [address] [place], [place] [address] Referring Ophthalmology 06/27/22 Roller Repairer Relationship Specialty Start Date End Date Diana Salmeron MD [address] [place] [address] PCP - General Internal Medicine 09/01/22 Ryan Rodrigues MD [address] [place] [id number] Infectious Diseases 12/06/19 Yadi White, DO [address] [place] [address] Urology 04/28/20 Isac Lucas [address] [place], [place] [address] Referring Ophthalmology 06/27/22 Roller Repairer Relationship Specialty Start Date End Date Diana Salmeron MD [address] [id number] PCP - General Internal Medicine 09/01/22 Ryan Rodrigues MD [address] [place] [address] Infectious Diseases 12/06/19 Yadi White, DO [address] [place] [address] Urology 04/28/20 Isac Lucas [address] [place] [address] Referring Ophthalmology 06/27/22 Team Status: Active Member Role Status Dates Dr. Dexter Reyes MD Family Provider Active Dr. Dexter Reyes MD Primary Care Provider Active Team Status: Active Member Role Status Dates Dr. Dexter Reyes MD Primary Care Provider Active Dr. Bren Lopes MD Admit Provider, Other Provider Active Dr. Dwayne Paulmbo MD Other Provider Active Dr. Jesse Haywood DO Attending Provider, Other Provid er Active Team Status: Active Member Role Status Dates Dr. Dexter Reyes MD Primary Care Provider Active Dr. Bren Lopes MD Admit Provider, Other Provider Active Dr. Dwayne Palumbo MD Attending Provider, Other Provi barbara Active Dr. Jesse Haywood DO Other Provider Active Team Status: Active Member Role Status Dates Dr. Dexter Reyes MD Primary Care Provider Active Dr. Sohail Owen DO Attending Provider Active Dr. Jesse Haywood DO Referring Provider Active Team Status: Active Member Role Status Dates Dr. Dexter Reyes MD Primary Care Provider Active Dr. Bren Lopes MD Admit Provider, Other Provider Active Dr. Dwayne Palumbo MD Other Provider Active Dr. Jesse Haywood DO Referring Provider, Other Provid er Active Dr. Sohail Owen DO Attending Provider Active Team Status: Active Member Role Status Dates Dr. Dexter Reyes MD Primary Care Provider Active Dr. Bren Lopes MD Admit Provider, Other Provider Active Dr. Dwayne Palumbo MD Other Provider Active Dr. Jesse Haywood DO Other Provider Active Dr. Daniel Rodriguez MD Other Provider Active Dr. Elias Bee MD Attending Provider Active Team Status: Active Member Role Status Dates Dr. Dexter Reyes MD Primary Care Provider Active Dr. Bren Lopes MD Admit Provider, Other Provider Active Dr. Dwayne Palumbo MD Other Provider Active Dr. Jesse Haywood DO Attending Provider, Other Provid er Active Dr. Daniel Rodriguez MD Other Provider Active Team Status: Inactive Member Role Status Dates Dr. Dexter Reyes MD Primary Care Provider Active Dr. Dwayne Palumbo MD Attending Provider, Referring P rovider Active Team Status: Inactive Member Role Status Dates Dr. Dexter Reyes MD Primary Care Provider Active Dr. Bren Lopes MD Admit Provider, Other Provider Active Dr. Dwayne Palumbo MD Other Provider Active Dr. Jesse Haywood DO Attending Provider Active Dr. Daniel Rodriguez MD Other Provider Active Team Status: Active Member Role Status Dates Dr. Dexter Reyes MD Family Provider Active Dr. Diana Salmeron MD Primary Care Provider Active Team Status: Inactive Member Role Status Dates Dr. Dexter Reyes MD Primary Care Provider, Referring Provider Active Dr. Dwayne Palumbo MD Attending Provider Active Team Status: Inactive Member Role Status Dates Dr. Diana Salmeron MD Primary Care Provider Active Dr. Dwayne Palumbo MD Attending Provider, Referring P rovider Active Roller Repairer Relationship Specialty Start Date End Date Diana Salmeron MD [address] [place] [address] PCP - General Internal Medicine 09/01/22 Ryan Rodrigues MD [address] [facility] [place] [place] [phone] Infectious Diseases 12/06/19 Yadi White DO [address] [place] [address] Urology 04/28/20 Isac Lucas [address] [place], [place] [address] Referring Ophthalmology 06/27/22 Roller Repairer Relationship Specialty Start Date End Date Diana Salmeron MD [address] [place] [address] PCP - General Internal Medicine 09/01/22 Ryan Rodrigues MD [address] [place] [address] Infectious Diseases 12/06/19 Yadi White DO [address] [place] [address] Urology 04/28/20 Isac Lucas [address] [place], [place] [address] Referring Ophthalmology 06/27/22 Roller Repairer Relationship Specialty Start Date End Date Diana Salmeron MD [address] [place] [address] PCP - General Internal Medicine 09/01/22 Ryan Rodrigues MD [address] [place] [address] Infectious Diseases 12/06/19 Christopher RubentrixiegraciaDO [address] [place] [address] Urology 04/28/20 Isac Lucas [address] [place] [address] Referring Ophthalmology 06/27/22 Roller Repairer Relationship Specialty Start Date End Date Diana Salmeron MD [address] [place], [place] [address] PCP - General Internal Medicine 09/01/22 Ryan Rodrigues MD [address] [place] [address] Infectious Diseases 12/06/19 Yadi White DO [address] [place] [address] Urology 04/28/20 Isac Lucas [address] [place], [place] [address] Referring Ophthalmology 06/27/22 Roller Repairer Relationship Specialty Start Date End Date Diana Salmeron MD [address] [place], [place] [address] PCP - General Internal Medicine 09/01/22 Ryan Rodrigues MD [address] [place] [address] Infectious Diseases 12/06/19 Yadi White DO [address] [place] [address] Urology 04/28/20 Isac Lucas [address] [place] [address] Referring Ophthalmology 06/27/22 Team Status: Inactive Member Role Status Dates Dr. Diana Salmeron MD Primary Care Provider Active Start: June 06, 2024 End: June 06, 2024 Dr. Diana Salmeron MD Referring Provider Active Start: June 06, 2024 End: June 06, 2024 GILL Jefferson Attending Provider Active Start: June 06, 2024 End: June 06, 2024 Team Status: Active Member Role Status Dates Dr. Diana Salmeron MD Primary Care Provider Active Start: September 18, 2024 Victor M DAVID MD Attending Provider Active Start: September 18, 2024 Roller Repairer Relationship Specialty Start Date End Date Diana Salmeron MD [address] [facility] [address] [place], [place] [address] PCP - General Internal Medicine 09/01/22 Ryan Rodrigues MD [address] [place] [address] Infectious Diseases 12/06/19 Yadi White DO [address] [place] [address] Urology 04/28/20 Isac Lucas [address] [place] [address] Referring Ophthalmology 06/27/22 Roller Repairer Relationship Specialty Start Date End Date Diana Salmeron MD [address] [place] [address] PCP - General Internal Medicine 09/01/22 Ryan Rodrigues MD [facility] [address] [facility] [place] [address] Infectious Diseases 12/06/19 [place] [address] [place] [address] Urology 04/28/20 Isac Lucas [address] [place] [address] Referring Ophthalmology 06/27/22 Team Status: Inactive Member Role Status Dates Dr. Diana Salmeron MD Primary Care Provider Active Start: October 15, 2024 End: October 16, 2024 Dr. Jesse Angel DO Emergency Provider Active Start: October 15, 2024 End: October 16, 2024 Team Status: Inactive Member Role Status Dates Dr. Diana Salmeron MD Primary Care Provider Active Start: September 24, 2024 End: September 24, 2024 Dr. Victor M Rojas MD Attending Provider Active Start: September 24, 2024 End: September 24, 2024 Team Status: Active Member Role Status Dates Dr. Diana Salmeron MD Primary Care Provider Active Start: November 20, 2024 Victor M DAVID MD Attending Provider Active Start: November 20, 2024 Team Status: Inactive Member Role Status Dates Dr. Diana Salmeron MD Primary Care Provider Active Start: October 01, 2024 End: October 01, 2024 Christina Whipple TICKET COLLECTOR OR USHER, TICKET COLLECTOR OR USHER-C Attending Provider Active Start: October 01, 2024 End: October 01, 2024 Team Status: Active Member Role/Relationship Status Dates Dr. Diana Salmeron MD Primary Care Provider Active Team Status: Inactive Member Role/Relationship Status Dates Dr. Diana Salmeron MD Primary Care Provider Active Start: August 21, 2024 End: August 21, 2024 Victor M DAVDI MD Attending Provider Active Start: August 21, 2024 End: August 21, 2024 Team Status: Inactive Member Role/Relationship Status Dates Dr. Diana Salmeron MD Primary Care Provider Active Start: September 03, 2024 End: September 03, 2024 Christina Whipple NP, TICKET COLLECTOR OR USHER-C Attending Provider Active Start: September 03, 2024 End: September 03, 2024 Team Status: Inactive Member Role/Relationship Status Dates Dr. Diana Salmeron MD Primary Care Provider Active Start: September 05, 2024 End: September 05, 2024 Christina Whipple NP, TICKET COLLECTOR OR USHER-C Attending Provider Active Start: September 05, 2024 End: September 05, 2024 Team Status: Inactive Member Role/Relationship Status Dates Dr. Diana Salmeron MD Primary Care Provider Active Start: September 06, 2024 End: September 06, 2024 Dr. Diana Salmeron MD Referring Provider Active Start: September 06, 2024 End: September 06, 2024 GILL Jefferson Attending Provider Active Start: September 06, 2024 End: September 06, 2024 Team Status: Inactive Member Role/Relationship Status Dates Dr. Diana Salmeron MD Primary Care Provider Active Start: September 18, 2024 End: September 18, 2024 Victor M DAVID MD Attending Provider Active Start: September 18, 2024 End: September 18, 2024 Team Status: Inactive Member Role/Relationship Status Dates Dr. Diana Salmeron MD Primary Care Provider Active Start: September 24, 2024 End: September 24, 2024 Dr. Victor M Rojas MD Attending Provider Active Start: September 24, 2024 End: September 24, 2024 Team Status: Inactive Member Role/Relationship Status Dates Dr. Diana Salmeron MD Primary Care Provider Active Start: October 01, 2024 End: October 01, 2024 Christina Whipple NP, TICKET COLLECTOR OR USHER-C Attending Provider Active Start: October 01, 2024 End: October 01, 2024 Team Status: Inactive Member Role/Relationship Status Dates Dr. Diana Salmeron MD Primary Care Provider Active Start: October 15, 2024 End: October 16, 2024 Dr. Jesse Angel DO Attending Provider Active Start: October 15, 2024 End: October 16, 2024 Dr. Jesse Angel , Emergency Provider Active Start: October 15, 2024 End: October 16, 2024 Team Status: Inactive Member Role/Relationship Status Dates Dr. Diana Salmeron MD Primary Care Provider Active Start: October 16, 2024 End: October 16, 2024 Dr. Diana Salmeron MD Referring Provider Active Start: October 16, 2024 End: October 16, 2024 Lauren Hutchison PA, PA Attending Provider Active Start: October 16, 2024 End: October 16, 2024 Team Status: Inactive Member Role/Relationship Status Dates Dr. Diana Salmeron MD Primary Care Provider Active Start: October 23, 2024 End: October 23, 2024 Victor M DAVID MD Attending Provider Active Start: October 23, 2024 End: October 23, 2024 Team Status: Inactive Member Role/Relationship Status Dates Dr. Diana Salmeron MD Primary Care Provider Active Start: November 07, 2024 End: November 07, 2024 MIGUEL Clemons Attending Provider Active Start: November 07, 2024 End: November 07, 2024 Team Status: Active Member Role/Relationship Status Dates Dr. Diana Salmeron MD Primary Care Provider Active Start: November 20, 2024 Victor M DAVID MD Attending Provider Active Start: November 20, 2024 Team Status: Inactive Member Role/Relationship Status Dates Dr. Diana Salmeron MD Primary Care Provider Active Start: September 18, 2024 End: September 18, 2024 Victor M DAVID MD Attending Provider Active Start: September 18, 2024 End: September 18, 2024 Team Status: Inactive Member Role/Relationship Status Dates Dr. Diana Salmeron MD Primary Care Provider Active Start: September 24, 2024 End: September 24, 2024 Dr. Victor M Rojas MD Attending Provider Active Start: September 24, 2024 End: September 24, 2024 Team Status: Inactive Member Role/Relationship Status Dates Dr. Diana Salmeron MD Primary Care Provider Active Start: October 01, 2024 End: October 01, 2024 MIGUEL Malloy NP Attending Provider Active Start: October 01, 2024 End: October 01, 2024 Team Status: Inactive Member Role/Relationship Status Dates Dr. Diana Salmeron MD Primary Care Provider Active Start: October 15, 2024 End: October 16, 2024 Dr. Jesse Angel DO Attending Provider Active Start: October 15, 2024 End: October 16, 2024 Dr. Jesse Angel DO Emergency Provider Active Start: October 15, 2024 End: October 16, 2024 Team Status: Inactive Member Role/Relationship Status Dates Dr. Diana Salmeron MD Primary Care Provider Active Start: October 16, 2024 End: October 16, 2024 Dr. Diana Salmeron MD Referring Provider Active Start: October 16, 2024 End: October 16, 2024 Lauren GARLAND, PA Attending Provider Active Start: October 16, 2024 End: October 16, 2024 Team Status: Inactive Member Role/Relationship Status Dates Dr. Diana Salmeron MD Primary Care Provider Active Start: October 23, 2024 End: October 23, 2024 Victor M DAVID MD Attending Provider Active Start: October 23, 2024 End: October 23, 2024 Team Status: Inactive Member Role/Relationship Status Dates Dr. Diana Salmeron MD Primary Care Provider Active Start: November 07, 2024 End: November 07, 2024 MIGUEL Clemons Attending Provider Active Start: November 07, 2024 End: November 07, 2024 Team Status: Active Member Role/Relationship Status Dates Dr. Diana Salmeron MD Primary Care Provider Active Start: November 20, 2024 Victor M DAVID MD Attending Provider Active Start: November 20, 2024 Team Status: Inactive Member Role/Relationship Status Dates Dr. Diana Salmeron MD Primary Care Provider Active Start: December 03, 2024 End: December 03, 2024 Dr. Victor M Rojas MD Attending Provider Active Start: December 03, 2024 End: December 03, 2024 Team Status: Active Member Role/Relationship Status Dates Dr. Diana Salmeron MD Primary Care Provider Active Start: December 18, 2024 Victor M DAVID MD Attending Provider Active Start: December 18, 2024 Roller Repairer Relationship Specialty Start Date End Date Diana Salmeron MD [address] [place] [address] PCP - General Internal Medicine 09/01/22 Ryan Rodrigues MD [address] [place] [id number] Infectious Diseases 12/06/19 Yadi White DO [address] [place], [place] [address] Urology 04/28/20 Isac Lucas [address] [place], [place] [id number] Referring Ophthalmology 06/27/22 Care Team (unrecognized sect ion and content) Care Team Related Persons Name: ANGELIC SUE Care Team Personnel Name: DIANA SALMERON MD Med Service: Internal Medicine Member Role: Primary Care Physician Address: Address: [address] [place] [address] [address] [place], [place] [address] Care Team Related Persons Name: ANGELIC SUE Reason for Visit (unrecogniz ed section and content) Reason Comments Visual Disturbance Ref by rheum today. Poor vision OD suddenly, about 1 month after cataract surgery pert pt Reason Comments Patient Update Reason Comments Blood In Urine Reason Comments Radiology CT Specialty Diagnoses / Procedures Referred By Contac t Referred To Contact CT IMAGING Diagnoses Gross hematuria Procedures CT UROGRAM WO/W IVCON CT ABD & PELVIS W/WO CONTRST 1+ BODY Nikolai Fisher, T[address] [place] [address] [place] [address] Referral ID Status Reason Start Date Expiration Date V isits Requested Visits Authorized [id number] Closed Auto-Generate d Referral 06/25/2024 07/18/2025 1 1 Reason Comments Results Reason Comments Follow Up Blood In Urine Kidney Stones Reason Comments Gross hematuria Goals (unrecognized section and content) Goals may be documented in a n alternate section FOR RECORDS PERTAINING TO PATIENTS WHO ARE OR HAVE BEEN ENROLLED IN A CHEMICAL DEPENDENCY/SUBSTANCEABUSE PROGRAM, SOME INFORMATION MAY BE OMITTED. This clinical summary was aggregated from multiple sources. Caution should be exercised in using it in the provision of clinical care. This summary normalizes information from multiple sources, and as a consequence, information in this document may materially change the coding, format and clinical context of patient data. In addition, data may be omitted in some cases. CLINICAL DECISIONS SHOULD BE BASED ON THE PRIMARY CLINICAL RECORDS. [facility] [employer] [facility]. provides no warranty or guarantee of the accuracy or completeness of information in this document.
[2025-01-22 08:25] LABS: Albumin, Serum 3.3 g/dL (3.4-4.8); Anion Gap 15 (5-15); BUN 48 mg/dL (4-19); BUN/Creat Ratio 24.3 RATIO (10-20); Calcium,Total 8.2 mg/dL (7.6-11.0); Carbon Dioxide 18.3 mmol/L (21.0-32.0); Chloride 103 mmol/L (98-108); Glucose 83 mg/dL (70-99); Potassium 3.9 mmol/L (3.3-5.1)
== END ==
LOC: OLS.WHLEAS 05:00
PROVIDERS: PCP Internal Medicine; Visit Provider Internal Medicine
DX: E11.22 Type 2 diabetes mellitus with diabetic chronic kidney disease (principal); N18.9 Chronic kidney disease, unspecified; E11.40 Type 2 diabetes mellitus with diabetic neuropathy, unspecified; J96.11 Chronic respiratory failure with hypoxia
CPT/HCPCS: 36415; 80069

== ENCOUNTER → 2025-01-28 05:00 | Outpatient (REF) | payer MEDICARE, MEDICAID, SELFPAY ==
--- OUTSIDE RECORDS SUMMARY | 2025-01-28 03:35 | XMS RPT_ITS | CCD ---
Author Organization [facility] Care Team Providers Care Sales And Service Associate Name Role Phone Eric LATHAM, Papa Primary Care Provider ERIC DEXTER-CHI Primary Care Unavailable HUMA MARIO Referring Unavailable MARIO FINN Attending Unavailable ERIC, DEXTER-CHI Primary Care Unavailable YUSUF COOPER Attending Unavailable ERIC, DEXTER-CHI Referring Unavailable ERIC, DEXTER-CHI Referring Unavailable ERIC, DEXTER-CHI Primary Care Unavailable MARIO FINN Attending Unavailable Eric, Dexter Chi Primary Care Provider Ryan Rodrigues MD Unavailable Yadi White DO Unavailable DR DIANA SALMERON MD Primary Care Physician Ryan Rodrigues MD Unavailable Ruben White DOyrgracia Unavailable Isac Lucas Unavailable Diana Salmeron MD Primary Care Provider Dr. Dexter Reyes Chi Primary Care Provider Dr. Bren Lopes Admit Provider Dr. Bren Lopes Other Provider Dr. Dwayne Palumbo Other Provider Dr. Jesse Haywood Attending Provider Dr. Jesse Haywood Other Provider Dr. Dwayne Palumbo Attending Provider 1([facility])[phone] Friend, Dr. Sauceda Attending Provider Dr. Jesse Haywood Referring Provider Dr. Daniel Rodriguez Other Provider Unavaila Dr. Elias Mendez Attending Provider [phone] Dr. Dwayne Palumbo Referring Provider Dr. Dexter [...] Rojas MD Attending Provider Unavaila ble [place] COACH-C, Christina Attending Provider Dr. Victor M Rojas MD Attending Provider Victor M Rojas MD Referring Provider Unavaila ble CONNOR, NIKOLAI Attending Unavailable LATOUF, BUTROS Primary Care Unavailable CONNOR, NIKOLAI Attending Unavailable LATOUF, BUTROS Primary Care Unavailable CONNOR, NIKOLAI Referring Unavailable LATOUF, BUTROS Primary Care Unavailable CONNOR, NIKOLAI Referring Unavailable LATOUF, BUTROS Primary Care Unavailable Dr. Diana Salmeron MD Primary Care Provider Dr. Diana Salmeron MD Referring Provider Kacie Baer Attending Provider Dr. Diana Salmeron MD Primary Care Provider Victor M Rojas MD Attending Provider Unavaila ble [place] COACH-C, Christina Attending Provider Dr. Jesse Angel DO Emergency Provider Latouf MD, Dr. Butros Primary Care Provider Victor M Rojas MD Attending Provider Unavaila ble Tickeliane COACH-C, Christina Attending Provider Dr. Jesse Angel DO Attending Provider Foster GARLAND, Lauren Bryan Attending Provider [place] COACH-C, Christina Attending Provider Faviola LATHAM, Dr. Ortiz Primary Care Provider [phone] Victor M Rojas MD Attending Provider Unavaila silvano Rojas MD, Dr. Dow Attending Provider Dr. Diana Salmeron MD Primary Care Provider Victor M Rojas MD Attending Provider Unavaila ble Sole COACH-C, Christina Attending Provider Dr. Diana Salmeron MD Referring Provider GAYLA CLINE Attending Unavailable LATOUF, BUTROS Primary Care Unavailable ERIC MONTGOMERY I Attending Unavailable DIANA SALMERON MD Consulting Unavailable ERIC MONTGOMERY I Admitting Unavailable ERIC MONTGOMERY I Primary Care Unavailable PROVIDER, UNKNOWN Consulting Unavailable PROVIDER, UNKNOWN Consulting Unavailable PROVIDER, UNKNOWN Consulting Unavailable Oleghe OLS Efewongbe Attending Unavailabl e Latouf, Butros Primary Care Unavailable Oleghe OLS Efewongbe Attending Unavailabl e Latouf, Butros Primary Care Unavailable Oleghe OLS Efewongbe Attending Unavailabl e Latouf, Butros Primary Care Unavailable Latouf, Butros Primary Care Unavailable Oleghe OLS Efewongbe Attending Unavailabl e Oleghe OLS, Efewongbe Attending Unavailabl e Latouf, Butros Primary Care Unavailable Oleghe OLS, Efewongbe Attending Unavailabl e Latouf, Butros Primary Care Unavailable Latouf, Butros Primary Care Unavailable Oleghe FRANKIE Efewongbe Attending Unavailabl e [place] Christina DAVID Attending Unavailable Latouf, Butros Primary Care Unavailable Oleghe OLS Efewongbe Attending Unavailabl e Latouf, Butros Primary [...] Unavailable Oleghe OLS, Efewongbe Attending Unavailabl e Eric Montgomery Attending Unavailable Latouf, Butros Primary Care Unavailable Latouf, Butros Primary Care Unavailable Sole Christina Attending Unavailable Latouf, Butros Primary Care Unavailable Elenoton Christina Attending Unavailable Latouf, Butros Primary Care Unavailable Oleghe, Efewongbe Attending Unavailable Oleghe OLS, Efewongbe Attending Unavailabl e Oleghe OLS, Efewongbe Referring Unavailabl e Latouf, Butros Primary Care Unavailable Oleghe OLS, Efewongbe Attending Unavailabl e Latouf, Butros Primary Care Unavailable Oleghe OLS, Efewongbe Attending Unavailabl e Latouf, Butros Primary Care Unavailable Ra Braydenhsaan Attending Unavailable Latouf, Butros Primary Care Unavailable Latouf, Butros Referring Unavailable Jesse Angel Attending Unavailable Latouf, Butros Primary Care Unavailable Latouf, Butros Primary Care Unavailable Sole, Christina Attending Unavailable Latouf, Butros Referring Unavailable Lauren Carlson Attending Unavail able Latouf, Butros Primary Care Unavailable Latouf, Butros Primary Care Unavailable Kacie Simon Attending Unavailable Latouf, Butros Referring Unavailable Oleghe, Efewongbe Attending Unavailable Latouf, Butros Primary Care Unavailable Sole Christina Attending Unavailable Latouf, Butros Primary Care Unavailable Latouf, Butros Primary Care Unavailable Oleghe, Efewongbe Attending Unavailable Latouf, Butros Referring Unavailable Nasim Caballero Attending Unavailable Latouf, Butros Primary Care Unavailable Sole Christina Attending Unavailable Latouf, Butros Primary Care Unavailable Oleghe, Efewongbe Attending Unavailable Latouf, Butros Primary Care Unavailable Latouf, Butros Referring Unavailable Kacie Simon Attending Unavailable Latouf, Butros Primary Care Unavailable Christina Whipple Attending Unavailable Latouf, Butros Primary Care Unavailable Christina Whipple Attending Unavailable Latouf, Butros Primary Care Unavailable Latthiagof, Butros Primary Care Unavailable Victor M Rojas Attending Unavailable Latouf, Butros Primary Care Unavailable Victor M Gastelum Attending Unavailabl e Medications Current Medications Medication Drug Class(es) Dates [...] oral tablet (20 sources) Antiarrhythmic Start: End: take 1 tablet by mouth once daily [...] MG DAILY@0800 October 12, 2019 7:37am 10-12-2019 [facility] ([id number]) 0 10/12/2019 Active Comment on above: Aspirin Aspirin E.C. Active 81 MG DAILY@0800 October 12, 2019 7:37am 10-12-2019 [facility] ([id number]) Take 81 mg by mouth. atorvastatin 40 [...] 8:29am thyroid take 1 tablet by brayan once daily levothyroxine (SYNTHROID) 50 MCG tablet [...] 01-12-2022 metoprolol tartrate (Lopress or) Start: 01/12/22 8:00:00 EDT, Dose = 6.25 mg, = [...] (BACTROBAN) 2 % ointment 01/14/2023 Active nystatin 055504 unt/ml topical cream (8 sources) Polyene Antifungal [...] mg tablet 02/25/2023 Active polyethylene glycol 3350 41348 mg powder for oral solution (20 sources) [...] pen injector 3 mg. 01/13/2025 Active vit C,V-Tw-tadbi-lutein-zeax an (PRESERVISION AREDS-2) 250-90-40-1 mg (12 sources) Start: 12-09-2020 vit C,E-Zn-photostatic copy maker nq-ugwtok-idmdfh (PRESERVISION AREDS-2) 250-90-40-1 mg Take 1 Each by mouth. 12/09/2020 Active Start: 12-09-2020 vit C,E-Zn-photostatic copy maker am-jrscue-jzulbo (PRESERVISION AREDS-2) 250-90-40-1 mg Take 1 Each [...] Discontinued 1 {tbl} PO TWICE A DAY 20 10 November 27, 2019 12:00am December 06, 2019 [...] Start: 05-18-2020 take 1000 [IU] by mo [facility] once daily Cholecalciferol (Vitamin D3) Active 1000 [...] DAILY docusate sodium 50 mg / sennosides, senior care 8.6 mg oral tablet (1 source) take [...] 01, 2021 12:00am March 03, 2022 11:42am take 1 tablet by mouth [...] Comment on above: [facility] miconazole nitrate 0.02 mg/mg topical [...] Coronary atherosclerosis; Translations: [Atherosclerotic heart disease of [place] coronary artery without angina pectoris] Onset: 12-31-2021 [...] Long-term current use of systemic steroid; Translations: [detention (current) use of systemic steroids] Episodic Other aftercare (5 sources) Drug therapy finding; Translations: [Other snf (current) drug therapy] 12-25-2022 Episodic Other aftercare (5 sources) Long-term current use of amiodarone; Translations: [Other snf (current) drug therapy] 05-16-2022 Episodic Other bone [...] Other nervous system disorders (1 source) H/O: FUR GLAZER disorder; Translations: [Personal history of other diseases [...] postprocedural states] 09-04-2023 Episodic Comment on above: 12.15. with tent pl acement; 06.06. with stent removal Respiratory failure; insufficiency; arrest [...] CNOV Office Visit (URCANT ) ELIZABETH MODI ([id number]) 1940 M T Date Time Provider Department 01/14/25 9:15 AM GAYLA CLINE During your visit today, we recorded the following information about you: Gayla Cline MD 01/14/2025 10:48 AM Signed CYSTOSCOPY PROCEDURE NOTE : Elizabeth Modi is a 84 year old male who is here for cystoscopy PRE-OP/PRE-PROCEDURE DIAGNOSIS: h/o gross henaturia POST-OP/POST-PROCEDURE DIAGNOSIS: same SURGERY/PROCEDURE(S): Cystoscopy Pt ID verified with patient: Yes Procedure verified with patient: Yes Procedure confirmed with physician and production support consultant: Yes UNIVERSAL PROTOCOL / SAFETY CHECKLIST Procedure [...] be provided wit (more content not included)... Normal [facility] Anion gap in Serum or Plasma Ordered By: Victor M Rojas on 12-18-2024 Anion gap [Moles/Vol] 14 mmol/L 5-15 [facility] BUN/creatinine ratioOrdered By: Victor M Rojas on 12-18-2024 Urea nitrogen/Creatinine [Mass ratio] 18.6 mg/mg 10-20 [facility] Bilirubin, totalOrdered By: Victor M Rojas on 12-18-2024 Bilirubin [Mass/Vol] 0.79 mg/dL 0.00-1.30 [facility] Calculated very low density lipoprotein (VLDL) cholesterol measurementOrdered By: Victor M Rojas on 12-18-2024 Calculated very low density lipoprotein (VLDL) cholesterol measurement 25 mg/dL 5-40 [facility] Carbon dioxide, total [Moles /volume] in Central venous bloodOrdered By: Victor M Rojas on 12-18-2024 CO2 [Moles/Vol] 19.2 mmol/L Low 21.0-32.0 [facility] Chloride assayOrdered By: Stefan Rojas on 12-18-2024 Chloride [Moles/Vol] 105 mmol/L 98-108 [facility] Erythrocyte distribution wid th ratioOrdered By: Victor M Rojas on 12-18-2024 Erythrocyte distribution width (RBC) [Ratio] 14.9 % High 11.6-14.6 [facility] Erythrocyte distribution wid th standard deviationOrdered By: Victor M Rojas on 12-18-2024 Erythrocyte distribution width (RBC) [Ratio] 48.5 fl High 35.1-43.9 [facility] Glomerular filtration rate ( GFR) estimation/1.73 sq m using serum, plasma, or whole bOrdered By: Victor M Rojas on 12-18-2024 GFR/1.73 sq M.predicted among non-blacks MDRD (S/P/Bld) [Vol rate/Area] 38 mL/min/{1.73_m2} Low >60 [facility] Comment on above: mL/min/1.73m2 CKD-EP I Creatinine Equation (2020) Hematocrit Auto (Bld) [Volum e fraction]Ordered By: Victor M Rojas on 12-18-2024 Hematocrit (Bld) [Volume fraction] 44.3 % 40-54 [facility] Hemoglobin A1c percentageOrd ered By: Victor M Rojas on 12-18-2024 HbA1c (Bld) [Mass fraction] 8.8 % High <5.7 [facility] Comment on above: Normal < 5.7 % Predi abetic 5.7 - 6.4 % Diabetic >or= 6.5 % Please note range changes. Hemoglobin measurementOrdere d By: Victor M Rojas on 12-18-2024 Hemoglobin (Bld) [Mass/Vol] 14.1 g/dL 13.0-16.5 [facility] LDL calc ser/plasOrdered By: Victor M Rojas on 12-18-2024 Cholesterol in LDL [Mass/Vol] 48 mg/dL [facility] Comment on above: Wfltkjrums=806-056 m g/dL & Higher Ulpy=810 mg/dL or greater Laboratory - Chemistry and C hemistry - challengeOrdered By: Victor M Rojas on 12-18-2024 AST [Catalytic activity/Vol] 27 U/L <38 [facility] MCV (mean corpuscular volume ) determinationOrdered By: Victor M Rojas on 12-18-2024 MCV (RBC) [Entitic vol] 89.1 fL 80-94 [facility] Mean corpuscular hemoglobin (MCH) determinationOrdered By: Victor M Rojas on 12-18-2024 MCH (RBC) [Entitic mass] 28.4 pg 27.0-32.0 [facility] Mean corpuscular hemoglobin concentration (MCHC) determinationOrdered By: Victor M Rojas on 12-18-2024 MCHC (RBC) [Mass/Vol] 31.8 g/dL Low 32-36 [facility] Mean platelet volume determi nationOrdered By: Victor M Rojas on 12-18-2024 Platelet mean volume (Bld) [Entitic vol] 11.5 fL 6.2-12.0 [facility] Platelet countOrdered By: Stefan Rojas on 12-18-2024 Platelets (Bld) [#/Vol] 218 10*3/uL 150-450 [facility] Potassium measurement (mass/ volume)Ordered By: Victor M Rojas on 12-18-2024 Potassium (Unsp spec) [Mass/Vol] 4.3 mmol/L 3.3-5.1 [facility] RBC Auto (Bld) [#/Vol]Ordere d By: Victor M Rojas on 12-18-2024 RBC (Bld) [#/Vol] 4.97 10*6/uL 4.6-6.2 [facility] Screening total cholesterol/ high density lipoprotein (HDL) cholesterol ratioOrdered By: Victor M Rojas on 12-18-2024 Cholesterol.total/Cholest giuliana in HDL [Mass ratio] 4.53 {ratio} [facility] Serum creatinine measurement (mass/volume)Ordered By: Victor M Rojas on 12-18-2024 Creatinine [Mass/Vol] 1.74 mg/dL High 0.70-1.20 [facility] Serum globulin measurementOr dered By: Victor M Rojas on 12-18-2024 Globulin (S) [Mass/Vol] 3.5 g/dL 2.2-4.2 [facility] Serum glucose measurement (m ass/volume)Ordered By: Victor M Rojas on 12-18-2024 Glucose [Mass/Vol] 82 mg/dL 70-99 [facility] Serum or plasma alanine mojica otransferase (ALT) measurementOrdered By: Victor M Rojas on 12-18-2024 ALT [Catalytic activity/Vol] 20 U/L <47 [facility] Serum or plasma albumin akash urement (mass/volume)Ordered By: Victor M Rojas on 12-18-2024 Albumin [Mass/Vol] 3.3 g/dL Low 3.4-4.8 [facility] Serum or plasma albumin/glob ulin mass ratioOrdered By: Victor M Rojas on 12-18-2024 Albumin/Globulin [Mass ratio] 1.0 {ratio} 0.9-2.4 [facility] Serum or plasma alkaline marielos sphatase measurementOrdered By: Victor M Rojas on 12-18-2024 ALP [Catalytic activity/Vol] 117 U/L 40-129 [facility] Serum or plasma calcium akash urement (mass/volume)Ordered By: Victor M Rojas on 12-18-2024 Calcium [Mass/Vol] 8.8 mg/dL 7.6-11.0 [facility] Serum or plasma cholesterol in HDL measurement (mass/volume)Ordered By: Victor M Rojas on 12-18-2024 Cholesterol in HDL [Mass/Vol] 21 mg/dL Low >40 [facility] Comment on above: National Cholesterol Education Program (NCEP) guidelines:<40 mg/dL: Low HDL-cholesterol (major risk factor for CHD)>= 60 mg/dL: High HDL-cholesterol (negative risk factor for CHD)HDL-cholesterol is affected by a number of factors, e.g. smoking, exercise, hormones, sex and age. Serum or plasma cholesterol measurement (mass/volume)Ordered By: Victor M Rojas on 12-18-2024 Cholesterol [Mass/Vol] 94 mg/dL <201 [facility] Comment on above: Cholesterol level, D esirable <200 mg/dLBorderline high cholesterol 200-239 mg/dLHigh cholesterol >=240 mg/dLRecommendations of the NCEP Adult Treatment Panel for the following risk-cutoff thresholds for the [place] population. Serum or plasma urea nitroge n measurement (mass/volume)Ordered By: Victor M Rojas on 12-18-2024 Urea nitrogen [Mass/Vol] 32 mg/dL High 4-19 [facility] Sodium levelOrdered By: Brandon Rojas on 12-18-2024 Sodium [Moles/Vol] 138 mmol/L 133-145 [facility] TSH DL <= 0.005 mIU/L QnOrde red By: Victor M Rojas on 12-18-2024 TSH Qn 1.380 uIU/mL 0.300-4.200 [facility] Total proteinOrdered By: Prosper Rojas on 12-18-2024 Protein [Mass/Vol] 6.8 g/dL 5.9-8.4 [facility] Triglycerides measurementOrd ered By: Victor M Rojas on 12-18-2024 Triglyceride [Mass/Vol] 125 mg/dL <199 [facility] Comment on above: The drugs N-Acetylcy steine and Metamizole may falsely depress this assay. Normal range: <150 mg/dLBorderline High: 150-199 mg/dLHigh: 200-499 mg/dLVery High: >500 mg/dL White blood cell (WBC) count Ordered By: Victor M Rojas on 12-18-2024 WBC (Bld) [#/Vol] 7.7 10*3/uL 4.4-11.0 [facility] Anion gap in Serum or Plasma Ordered By: Victor M Rojas on 11-20-2024 Anion gap [Moles/Vol] 13 mmol/L 5-15 [facility] BUN/creatinine ratioOrdered By: Victor M Rojas on 11-20-2024 Urea nitrogen/Creatinine [Mass ratio] 16.5 mg/mg 10-20 [facility] Carbon dioxide, total [Moles /volume] in Central venous bloodOrdered By: Victor M Rojas on 11-20-2024 CO2 [Moles/Vol] 20.9 mmol/L Low 21.0-32.0 [facility] Chloride assayOrdered By: Stefan Rojsa on 11-20-2024 Chloride [Moles/Vol] 104 mmol/L 98-108 [facility] Glomerular filtration rate ( GFR) estimation/1.73 sq m using serum, plasma, or whole bOrdered By: Victor M Rojas on 11-20-2024 GFR/1.73 sq M.predicted among non-blacks MDRD (S/P/Bld) [Vol rate/Area] 38 mL/min/{1.73_m2} Low >60 [facility] Comment on above: mL/min/1.73m2 CKD-EP I Creatinine Equation (2020) Potassium measurement (mass/ volume)Ordered By: Victor M Rojas on 11-20-2024 Potassium (Unsp spec) [Mass/Vol] 4.2 mmol/L 3.3-5.1 [facility] Serum creatinine measurement (mass/volume)Ordered By: Victor M Rojas on 11-20-2024 Creatinine [Mass/Vol] 1.75 mg/dL High 0.70-1.20 [facility] Serum glucose measurement (m ass/volume)Ordered By: Victor M Rojas on 11-20-2024 Glucose [Mass/Vol] 130 mg/dL High 70-99 [facility] Serum or plasma albumin akash urement (mass/volume)Ordered By: Victor M Rojas on 11-20-2024 Albumin [Mass/Vol] 3.5 g/dL 3.4-4.8 [facility] Serum or plasma calcium akash urement (mass/volume)Ordered By: Victor M Rjoas on 11-20-2024 Calcium [Mass/Vol] 8.8 mg/dL 7.6-11.0 [facility] Serum or plasma urea nitroge n measurement (mass/volume)Ordered By: Victor M Rojas on 11-20-2024 Urea nitrogen [Mass/Vol] 29 mg/dL High 4-19 [facility] Sodium levelOrdered By: Brandon perezkandis Bob on 11-20-2024 Sodium [Moles/Vol] 139 mmol/L 133-145 [facility] Calculated very low density lipoprotein (VLDL) cholesterol measurementOrdered By: Christina Whipple on 11-07-2024 Calculated very low density lipoprotein (VLDL) cholesterol measurement 34 mg/dL 5-40 [facility] LDL calc ser/plasOrdered By: Christina Whipple on 11-07-2024 Cholesterol in LDL [Mass/Vol] 43 mg/dL [facility] Comment on above: Trrkwixock=177-712 m g/dL & Higher Tzcw=082 mg/dL or greater Screening total cholesterol/ high density lipoprotein (HDL) cholesterol ratioOrdered By: Christina Whipple on 11-07-2024 Cholesterol.total/Cholest giuliana in HDL [Mass ratio] 4.60 {ratio} [facility] Serum or plasma cholesterol in HDL measurement (mass/volume)Ordered By: Christina Whipple on 11-07-2024 Cholesterol in HDL [Mass/Vol] 21 mg/dL Low >40 [facility] Comment on above: National Cholesterol Education Program (NCEP) guidelines:<40 mg/dL: Low HDL-cholesterol (major risk factor for CHD)>= 60 mg/dL: High HDL-cholesterol (negative risk factor for CHD)HDL-cholesterol is affected by a number of factors, e.g. smoking, exercise, hormones, sex and age. Serum or plasma cholesterol measurement (mass/volume)Ordered By: Christina Whipple on 11-07-2024 Cholesterol [Mass/Vol] 99 mg/dL <201 [facility] Comment on above: Cholesterol level, D esirable <200 mg/dLBorderline high cholesterol 200-239 mg/dLHigh cholesterol >=240 mg/dLRecommendations of the NCEP Adult Treatment Panel for the following risk-cutoff thresholds for the [place] population. Triglycerides measurementOrd ered By: Christina Whipple on 11-07-2024 Triglyceride [Mass/Vol] 171 mg/dL <199 [facility] Comment on above: The drugs N-Acetylcy steine and Metamizole may falsely depress this assay. Normal range: <150 mg/dLBorderline High: 150-199 mg/dLHigh: 200-499 mg/dLVery High: >500 mg/dL Anion gap in Serum or Plasma Ordered By: Victor M Rojas on 10-23-2024 Anion gap [Moles/Vol] 12 mmol/L 5-15 [facility] BUN/creatinine ratioOrdered By: Victor M Rojas on 10-23-2024 Urea nitrogen/Creatinine [Mass ratio] 21.7 mg/mg High 10-20 [facility] Carbon dioxide, total [Moles /volume] in Central venous bloodOrdered By: Victor M Rojas on 10-23-2024 CO2 [Moles/Vol] 19.8 mmol/L Low 21.0-32.0 [facility] Chloride assayOrdered By: Stefan Rojas on 10-23-2024 Chloride [Moles/Vol] 106 mmol/L 98-108 [facility] Glomerular filtration rate ( GFR) estimation/1.73 sq m using serum, plasma, or whole bOrdered By: Victor M Rojas on 10-23-2024 GFR/1.73 sq M.predicted among non-blacks MDRD (S/P/Bld) [Vol rate/Area] 39 mL/min/{1.73_m2} Low >60 [facility] Comment on above: mL/min/1.73m2 CKD-EP I Creatinine Equation (2020) Potassium measurement (mass/ volume)Ordered By: Victor M Rojas on 10-23-2024 Potassium (Unsp spec) [Mass/Vol] 4.0 mmol/L 3.3-5.1 [facility] Serum creatinine measurement (mass/volume)Ordered By: Stefanradha Rojas on 10-23-2024 Creatinine [Mass/Vol] 1.73 mg/dL High 0.70-1.20 [facility] Serum glucose measurement (m ass/volume)Ordered By: Milyprice Granadosluiskaran on 10-23-2024 Glucose [Mass/Vol] 129 mg/dL High 70-99 [facility] Serum or plasma albumin akash urement (mass/volume)Ordered By: Victor M Darwinluiskaran on 10-23-2024 Albumin [Mass/Vol] 3.3 g/dL Low 3.4-4.8 [facility] Serum or plasma calcium akash urement (mass/volume)Ordered By: Brandonnewburyprice Darwinluiskaran on 10-23-2024 Calcium [Mass/Vol] 8.6 mg/dL 7.6-11.0 [facility] Serum or plasma urea nitroge n measurement (mass/volume)Ordered By: Stefanradha Granadosluiskaran on 10-23-2024 Urea nitrogen [Mass/Vol] 38 mg/dL High 4-19 [facility] Sodium levelOrdered By: Brandon wynn Darwinkelly on 10-23-2024 Sodium [Moles/Vol] 137 mmol/L 133-145 [facility] Cardiology Visit Reporton Cardiology Visit Report [facility] [address] [place] [address]. [address] [place] [address] OFFICE VISIT Date of Service: 10/16/24 MR#: [id number] Acct: [id number] Name: ELIZABETH MODI Rep #: [id number] : 1940 Provider: GILL Connor Age/Sex: 84/M Location: [facility] Status: Signed HPI HPI History of Present [...] x 1 in December of 2021 at [facility] in [place]. He had a left internal mammary artery to left anterior descending coronary artery. He is residing at a [place]. 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 Normal [facility] Elbow min 3 Viewson 10-16-19 25 Elbow min [address] [facility] Imaging Services [address] [place] [address] Elbow min 3 Views MR#: [id number] Acct: [id number] Name: ELIZABETH MODI Rep #: [id number] : 1940 M 84 From: Edy Kapadia MD PCP: Dr. Diana Salmeron MD Status: REG ER Study: Elbow min 3 Views Date of Exam: 10/15/24 Exam# [id number] Ordering Dr: Jesse Angel DO EXAM: Left elbow CLINICAL HISTORY: Injury, pain COMPARISON: None TECHNIQUE: Three views FINDINGS: No acute fracture or dislocation. Moderate joint space narrowing and osteophyte formation consistent with moderate arthrosis. Normal soft tissues. RAD/Elbow min 3 Views IMPRESSION: No acute fracture or dislocation. Moderate arthrosis. Reading Location: [id number] CC: Dr. Diana Salmeron MD; Dr. Jesse Angel DO Maintainer Central Office: Signed Normal [facility] Emergency Department Summary on 10-15-2024 Emergency Department Summary [facility] Medical Records Department [address] [place] [address] Emergency Department Summary 10/15/24 MR#: [id number] Acct: [id number] Name: ELIZABETH MODI Rep #: [id number] : 1940 84 From: Jesse Angel DO [...] of his last tetanus. 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 alcohol intake: current alcohol intake frequency: a few times a month details: Prior heavier, now occasional. substance use type: does not use ROS ROS ED Constitutional Constitutional ED: Denies chills or fever(s) Eyes E (more content not included)... Normal [facility] Orb Sella Post Fossa Ear w/o on 10-15-2024 Orb Sella Post Fossa Ear w/o [facility] Imaging Services [address] [place] [address] Orb Sella Post Fossa Ear w/o MR#: [id number] Acct: [id number] Name: ELIZABETH MODI Rep #: [id number] : 1940 M 84 From: Edy Kapadia MD PCP: Dr. Diana Salmeron MD Status: REG ER Study: Orb Sella Post Fossa Ear w/o Date of Exam: Exam# [id number] Ordering Dr: Jesse Angel DO PROCEDURE: ORB [...] ORBITAL FRACTURE OR RETROBULBAR HEMATOMA. Reading Location: [facility] CC: Dr. Diana Salmeron MD; Dr. Jesse Angel DO Maintainer Central Office: Signed Normal [facility] Bacteria Ur Culton 5 Bacteria identified Cx Nom (U) ORGANISM ID: 1 10,000 -<50,000 CFU/ml Mixed microbiota No further workup. Mixed microbiota can be due to???urine???contamina tion with skin bacteria at time of collection or presence of a long-term urinary catheter. If a new culture is needed, please consider re-education of the patient on proper midstream collection technique or straight catheterization for???urine???collecti on. Normal [facility] Comment on above: Performed By: #### 6 30-4 #### [facility] CLIA [id number] [address] [place] [address] STATES OF [facility] CNOVon 10-01-2024 CNOV Office Visit (UROLWS ) ELIZABETH MODI ([id number]) 1940 [facility] Date Time Provider Department 10/01/24 1:00 [...] Nikolai Portillo PA-C 10/01/2024 2:58 PM Signed [facility] PATIENT CLINIC NOTE (M) Some [...] (ADULTS MULTIVITAMIN ORAL) Take by mouth. vit C,Z-Ht-xzord-lutein-ze axan (PRESERVISION AREDS-2) 250-90-40-1 mg Take 1 [...] mg ta (more content not included)... Normal [facility] Beau 10-01-2024 [place] Telephone (UROLWS) ELIZABETH MODI ([id number]) 1940 M [facility] Date Time Provider Department 10/01/24 NIKOLAI CONNOR During your visit today, we recorded the following information about you: ArceMarianoAyan Madrigalette 10/01/2024 2:13 PM Signed May you please submit another order for for Urogram CT. When last appt was canceled the order was not removed from the appt. Sorry for the inconvenience. Marivel PSS Allergies As of Date: 10/01/2024 (No Known Allergies) Date Reviewed: 10/01/2024 Reviewed by: Luke Taylor LPN - Fully Assessed Primary Visit Diagnosis:Gross hematuria [R31.0] Order(s):CT UROGRAM WO/W IVCON [[id number]] Order #: [id number] FUTURE iv contrast (will be provided with [...] MULTIVITAMIN ORAL) Take by mouth. - vit C,T-Tq-dvjwi-lutein-ze axan (PRESERVISION AREDS-2) 250-90-40-1 mg Take 1 [...] mouth once (more content not included)... Normal [facility] Anion gap in Serum or Plasma Ordered By: Victor M Rojas on 09-18-2024 Anion gap [Moles/Vol] 14 mmol/L 5- [facility] BUN/creatinine ratioOrdered By: Victor M Rojas on 09-18-2024 Urea nitrogen/Creatinine [Mass ratio] 14.2 mg/mg 10- [facility] Bilirubin, totalOrdered By: Victo rM Rojas on 09-18-2024 Bilirubin [Mass/Vol] 0.55 mg/dL 0.00-1.30 [facility] Calculated very low density lipoprotein (VLDL) cholesterol measurementOrdered By: Victor M Rojas on 09-18-2024 Calculated very low density lipoprotein (VLDL) cholesterol measurement 38 mg/dL - [facility] VLDL Cholesterol 38 mg/dL - [facility] Carbon dioxide, total [Moles /volume] in Central venous bloodOrdered By: Victor M Rojas on 09-18-2024 CO2 [Moles/Vol] 19.8 mmol/L Low 21.0-32.0 [facility] Chloride assayOrdered By: Stefan Rojas on 09-18-2024 Chloride [Moles/Vol] 102 mmol/L 98-108 [facility] Erythrocyte distribution wid th (RBC) [Ratio]Ordered By: Victor M Rojas on 09-18-2024 Erythrocyte distribution width (RBC) [Entitic vol] 47.1 fL High 35.1-43.9 [facility] Erythrocyte distribution wid th ratioOrdered By: Victor M Rojas on 09-18-2024 Erythrocyte distribution width (RBC) [Ratio] 14.4 % 11.6-14.6 [facility] Erythrocyte distribution wid th standard deviationOrdered By: Victor M Rojas on 09-18-2024 Erythrocyte distribution width (RBC) [Ratio] 47.1 fl High 35.1-43.9 [facility] GFR/1.73 sq M.predicted jacobo g non-blacks MDRD (S/P/Bld) [Vol rate/Area]Ordered By: Victor M Rojas on 09-18-2024 Estimated GFR (MDRD) Non-Af Amer 27 Low >60 [facility] Comment on above: mL/min/1.73m2 CKD-EP I Creatinine Equation (2020) Glomerular filtration rate ( GFR) estimation/1.73 sq m using serum, plasma, or whole bOrdered By: Victor M Rojas on 09-18-2024 GFR/1.73 sq M.predicted among non-blacks MDRD (S/P/Bld) [Vol rate/Area] 27 mL/min/{1.73_m2} Low >60 [facility] Comment on above: mL/min/1.73m2 CKD-EP I Creatinine Equation (2020) Hematocrit Auto (Bld) [Volum e fraction]Ordered By: Victor M Rojas on 09-18-2024 Hematocrit (Bld) [Volume fraction] 41.2 % 40-54 [facility] Hemoglobin A1c percentageOrd ered By: Victor M Rojas on 09-18-2024 HbA1c (Bld) [Mass fraction] 11.3 % >5.7 [facility] Hemoglobin measurementOrdere d By: Victor M Rojas on 09-18-2024 Hemoglobin (Bld) [Mass/Vol] 13.5 g/dL 13.0-16.5 [facility] LDL calc ser/plasOrdered By: Victor M Rojas on 09-18-2024 Cholesterol in LDL [Mass/Vol] 44 mg/dL [facility] Comment on above: Iowmnlnnzr=718-513 m g/dL & Higher Yypc=399 mg/dL or greater LDL Cholesterol, Calculated 44 mg/dL [facility] Comment on above: Acgfiidyhl=266-631 m g/dL & Higher Xshy=065 mg/dL or greater Laboratory - Chemistry and C hemistry - challengeOrdered By: Victor M Rojas on 09-18-2024 AST [Catalytic activity/Vol] 43 U/L High <38 [facility] Comment on above: Hemolysis present, R esults could be affected. MCV (mean corpuscular volume ) determinationOrdered By: Victor M Rojas on 09-18-2024 MCV (RBC) [Entitic vol] 89.6 fL 80-94 [facility] Mean corpuscular hemoglobin (MCH) determinationOrdered By: Victor M Rojas on 09-18-2024 MCH (RBC) [Entitic mass] 29.3 pg 27.0-32.0 [facility] Mean corpuscular hemoglobin concentration (MCHC) determinationOrdered By: Victor M Rojas on 09-18-2024 MCHC (RBC) [Mass/Vol] 32.8 g/dL 32-36 [facility] Mean platelet volume determi nationOrdered By: Victor M Rojas on 09-18-2024 Platelet mean volume (Bld) [Entitic vol] 12.0 fL 6.2-12.0 [facility] Platelet countOrdered By: Stefan Rojas on 09-18-2024 Platelets (Bld) [#/Vol] 209 10*3/uL 150-450 [facility] Potassium (Unsp spec) [Mass/ Vol]Ordered By: Victor M Rojas on 09-18-2024 Potassium [Moles/Vol] 4.1 mmol/L 3.3-5.1 [facility] Comment on above: Hemolysis present, R esults could be affected. Potassium measurement (mass/ volume)Ordered By: Victor M Rojas on 09-18-2024 Potassium (Unsp spec) [Mass/Vol] 4.1 mmol/L 3.3-5.1 [facility] Comment on above: Hemolysis present, R esults could be affected. RBC Auto (Bld) [#/Vol]Ordere d By: Victor M Rojas on 09-18-2024 RBC (Bld) [#/Vol] 4.60 10*6/uL 4.6-6.2 [facility] Screening total cholesterol/ high density lipoprotein (HDL) cholesterol ratioOrdered By: Victor M Rojas on 09-18-2024 Cholesterol.total/Cholest giuliana in HDL [Mass ratio] 4.29 {ratio} [facility] Serum creatinine measurement (mass/volume)Ordered By: Victor M Rojas on 09-18-2024 Creatinine [Mass/Vol] 2.35 mg/dL High 0.70-1.20 [facility] Serum globulin measurementOr dered By: Victor M Rojas on 09-18-2024 Globulin (S) [Mass/Vol] 3.4 g/dL 2.2-4.2 [facility] Serum glucose measurement (m ass/volume)Ordered By: Victor M Rojas on 09-18-2024 Glucose [Mass/Vol] 287 mg/dL High 70-99 [facility] Serum or plasma alanine mojica otransferase (ALT) measurementOrdered By: Victor M Rojas on 09-18-2024 ALT [Catalytic activity/Vol] 41 U/L <47 [facility] Serum or plasma albumin akash urement (mass/volume)Ordered By: Victor M Rojas on 09-18-2024 Albumin [Mass/Vol] 3.4 g/dL 3.4-4.8 [facility] Serum or plasma albumin/glob ulin mass ratioOrdered By: Victor M Rojas on 09-18-2024 Albumin/Globulin [Mass ratio] 1.0 {ratio} 0.9-2.4 [facility] Serum or plasma alkaline marielos sphatase measurementOrdered By: Victor M Rojas on 09-18-2024 ALP [Catalytic activity/Vol] 113 U/L 40-129 [facility] Serum or plasma calcium akash urement (mass/volume)Ordered By: Victor M Rojas on 09-18-2024 Calcium [Mass/Vol] 9.0 mg/dL 7.6-11.0 [facility] Serum or plasma cholesterol in HDL measurement (mass/volume)Ordered By: Victor M Rojas on 09-18-2024 Cholesterol in HDL [Mass/Vol] 25 mg/dL Low >40 [facility] Comment on above: National Cholesterol Education Program (NCEP) guidelines:<40 mg/dL: Low HDL-cholesterol (major risk factor for CHD)>= 60 mg/dL: High HDL-cholesterol (negative risk factor for CHD)HDL-cholesterol is affected by a number of factors, e.g. smoking, exercise, hormones, sex and age. Serum or plasma cholesterol measurement (mass/volume)Ordered By: Victor M Rojas on 09-18-2024 Cholesterol [Mass/Vol] 108 mg/dL <201 [facility] Comment on above: Cholesterol level, D esirable <200 mg/dLBorderline high cholesterol 200-239 mg/dLHigh cholesterol >=240 mg/dLRecommendations of the NCEP Adult Treatment Panel for the following risk-cutoff thresholds for the [place] population. Serum or plasma urea nitroge n measurement (mass/volume)Ordered By: Victor M Rojas on 09-18-2024 Urea nitrogen [Mass/Vol] 33 mg/dL High 4-19 [facility] Sodium levelOrdered By: Brandon Rojas on 09-18-2024 Sodium [Moles/Vol] 135 mmol/L 133-145 [facility] TSH DL <= 0.005 mIU/L QnOrde red By: Victor M Rojas on 09-18-2024 Thyroid Stimulating Hormone (TSH) 3.520 uIU/mL 0.300-4.200 [facility] TSH Qn 3.520 uIU/mL 0.300-4.200 [facility] Total proteinOrdered By: Prosper Rojas on 09-18-2024 Protein [Mass/Vol] 6.7 g/dL 5.9-8.4 [facility] Triglycerides measurementOrd ered By: Victor M Rojas on 09-18-2024 Triglyceride [Mass/Vol] 192 mg/dL <199 [facility] Comment on above: The drugs N-Acetylcy steine and Metamizole may falsely depress this assay. Normal range: <150 mg/dLBorderline High: 150-199 mg/dLHigh: 200-499 mg/dLVery High: >500 mg/dL White blood cell (WBC) count Ordered By: Victor M Rojas on 09-18-2024 WBC (Bld) [#/Vol] 8.5 10*3/uL 4.4-11.0 [facility] Gastroenterology Visit Repor ton 09-06-2024 Gastroenterology Visit Report [facility] [address] [place] [address] OFFICE VISIT Date of Service: 09/06/24 MR#: [id number] Acct: [id number] Name: ELIZABETH MODI Rep #: [id number] : 1940 Provider: GILL Jefferson Age/Sex: 84/M Location: [facility] Status: Signed Intake Vital Signs 01/11/24 07:47 [...] is experiencing diarrhea only once in awhile. 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 alcohol intake: current alcohol intake frequency: a few times a month details: Prior heavier, now occasional. substance use type: does not use HPI HPI Chief Complaint: fecal incontinence Details: ELIZABETH MODI, is a 84 M who presents to the office today for f/u. [facility] hospitalization 12.14.22-12.17.22 for management of choledocholithiasis, [...] daily. CMP ordered. 06.07.24; LFTs stable OV 09.06.24; Pt has been doing well. He is [...] Appearance: average body habitus and well nourished [facility] Head: normal to ins (more content not included)... Normal [facility] Anion gap in Serum or Plasma Ordered By: Victor M Rojas on 08-21-2024 Anion gap [Moles/Vol] 14 mmol/L 5-15 [facility] BUN/creatinine ratioOrdered By: Victor M Rojas on 08-21-2024 Urea nitrogen/Creatinine [Mass ratio] 18.2 mg/mg 10-20 [facility] Carbon dioxide, total [Moles /volume] in Central venous bloodOrdered By: Victor M Rojas on 08-21-2024 CO2 [Moles/Vol] 20.5 mmol/L Low 21.0-32.0 [facility] Chloride assayOrdered By: Stefan Rojas on 08-21-2024 Chloride [Moles/Vol] 102 mmol/L 98-108 [facility] GFR/1.73 sq M.predicted jacobo g non-blacks MDRD (S/P/Bld) [Vol rate/Area]Ordered By: Victor M Rojas on 08-21-2024 Estimated GFR (MDRD) Non-Af Amer 31 Low >60 [facility] Comment on above: mL/min/1.73m2 CKD-EP I Creatinine Equation (2020) Glomerular filtration rate ( GFR) estimation/1.73 sq m using serum, plasma, or whole bOrdered By: Victor M Rojas on 08-21-2024 GFR/1.73 sq M.predicted among non-blacks MDRD (S/P/Bld) [Vol rate/Area] 31 mL/min/{1.73_m2} Low >60 [facility] Comment on above: mL/min/1.73m2 CKD-EP I Creatinine Equation (2020) Potassium (Unsp spec) [Mass/ Vol]Ordered By: Victor M Rojas on 08-21-2024 Potassium [Moles/Vol] 4.3 mmol/L 3.3-5.1 [facility] Potassium measurement (mass/ volume)Ordered By: Victor M Rojas on 08-21-2024 Potassium (Unsp spec) [Mass/Vol] 4.3 mmol/L 3.3-5.1 [facility] Serum creatinine measurement (mass/volume)Ordered By: Victor M Rojas on 08-21-2024 Creatinine [Mass/Vol] 2.07 mg/dL High 0.70-1.20 [facility] Serum glucose measurement (m ass/volume)Ordered By: Victor M Rojas on 08-21-2024 Glucose [Mass/Vol] 198 mg/dL High 70-99 [facility] Serum or plasma albumin akash urement (mass/volume)Ordered By: Victor M Rojas on 08-21-2024 Albumin [Mass/Vol] 3.3 g/dL Low 3.4-4.8 [facility] Serum or plasma calcium akash urement (mass/volume)Ordered By: Victor M Rojas on 08-21-2024 Calcium [Mass/Vol] 8.8 mg/dL 7.6-11.0 [facility] Serum or plasma urea nitroge n measurement (mass/volume)Ordered By: Victor M Rojas on 08-21-2024 Urea nitrogen [Mass/Vol] 38 mg/dL High 4-19 [facility] Serum phosphorus measurement Ordered By: Victor M Rojas on 08-21-2024 Phosphorus Level 4.2 mg/dL 2.7-4.5 [facility] Sodium levelOrdered By: Brandon Rojas on 08-21-2024 Sodium [Moles/Vol] 136 mmol/L 133-145 [facility] Random urine microalbumin me asurementOrdered By: Victor M Rojas on 08-01-2024 Urine Random Microalbumin 583.0 mg/L NO RANGE EST. [facility] Urine albumin/creatinine rat io for detection of microalbuminuriaOrdered By: Victor M Rojas on 08-01-2024 Urine Microalbumin/Creatinine Ratio 1371.8 mg/g CRE High <30 [facility] Urine creatinine measurement (mass/volume)Ordered By: Victor M Rojas on 08-01-2024 Creatinine (U) [Mass/Vol] 42.50 mg/dL NO RANGE EST. [facility] Blood urea nitrogen (BUN)/cr eatinine ratioOrdered By: Victor M Rojas on 07-24-2024 Urea nitrogen/Creatinine [Mass ratio] 20.5 mg/mg High 10-20 [facility] Carbon dioxide measurementOr dered By: Victor M Rojas on 07-24-2024 CO2 [Moles/Vol] 21.0 mmol/L 21.0-32.0 [facility] Chloride measurementOrdered By: Victor M Rojas on 07-24-2024 Chloride [Moles/Vol] 106 mmol/L 98-107 [facility] Estimated glomerular filtrat ion rate (GFR) AmericanOrdered By: Victor M Rojas on 07-24-2024 Estimated GFR (MDRD) Amer 44 mL/min Low >60 [facility] Comment on above: GFR Calc Glomerular filtration rate ( GFR) estimationOrdered By: Victor M Rojas on 07-24-2024 Estimated GFR (MDRD) Non-Af Amer 36 mL/min Low >60 [facility] Comment on above: Non- GFR Calc GFR/1.73 sq M.predicted among non-blacks MDRD (S/P/Bld) [Vol rate/Area] 36 mL/min/{1.73_m2} Low >60 [facility] Comment on above: Non- GFR Calc Glucose measurementOrdered B y: Brandonleonaprice Rojas on 07-24-2024 Glucose [Mass/Vol] 230 mg/dL High 74-106 [facility] Comment on above: Glucose result great er than or equal to 200 mg/dLsuggests DIABETES MELLITUS per A.D.A. criteria. Hemoglobin A1c percentageOrd ered By: Victor M Rojas on 07-24-2024 HbA1c (Bld) [Mass fraction] 8.3 % High 3.8-5.6 [facility] Comment on above: Normal < 5.7 % Predi abetic 5.7 - 6.4 % Diabetic >or= 6.5 % Please note range changes. Phosphorus measurementOrdere d By: Victor M Rojas on 07-24-2024 Phosphorus Level 3.4 mg/dL 2.5-4.9 [facility] Potassium measurementOrdered By: Victor M Rojas on 07-24-2024 Potassium [Moles/Vol] 4.3 mmol/L 3.5-5.1 [facility] Serum or plasma albumin akash urement (mass/volume)Ordered By: Victor M Rojas on 07-24-2024 Albumin [Mass/Vol] 2.7 g/dL Low 3.2-5.0 [facility] Serum or plasma calcium akash urement (mass/volume)Ordered By: Victor M Rojas on 07-24-2024 Calcium [Mass/Vol] 8.2 mg/dL Low 8.5-10.1 [facility] Serum or plasma creatinine m easurement (mass/volume)Ordered By: Victor M Roajs on 07-24-2024 Creatinine [Mass/Vol] 1.90 mg/dL High 0.70-1.30 [facility] Comment on above: The validity of the calculated GFR & GFRAA in patients over 70 years has not been determined. Clinical correlation is essential. Serum or plasma urea nitroge n measurement (mass/volume)Ordered By: Victor M Rojas on 07-24-2024 Urea nitrogen [Mass/Vol] 39 mg/dL High 7-18 [facility] Sodium levelOrdered By: Brandon perezomikaran Rojas on 07-24-2024 Sodium [Moles/Vol] 135 mmol/L Low 136-145 [email or web address] r [facility] CT UROGRAM WO/W IVCONon 01-1 CT UROGRAM WO/W IVCON * * *Final Report* * * DATE OF EXAM: Jun 28 2024 2:26PM [facility] 0560 - CT UROGRAM WO/W IVCON / [...] be communicated with the ordering provider via [employer] staff message or phone message by [facility] within 2 business days of report finalization. --END OF FINDING-- Maintainer Central Office: ONEL Transcribe Date/Time: Jul 01 2024 9:40P Dictated by : JARAD ARCOS MD This examination was interpreted and the report reviewed and electronically signed by: JARAD ARCOS MD on Jul 01 2024 9:53PM EST [id number] [id number] Invalid Interpretation Code [facility] Estimated glomerular filtrat ion rate (GFR) AmericanOrdered By: Brandontianna Rojas on 06-27-2024 Estimated GFR (MDRD) Amer 37 mL/min Low >60 [facility] Comment on above: GFR Calc Glomerular filtration rate ( GFR) estimationOrdered By: Efvianeyongbe Darwinluiskaran on 06-27-2024 Estimated GFR (MDRD) Non-Af Amer 31 mL/min Low >60 [facility] Comment on above: Non- GFR Calc Serum or plasma creatinine m easurement (mass/volume)Ordered By: Brandontianna Rojas on 06-27-2024 Creatinine [Mass/Vol] 2.20 mg/dL High 0.70-1.30 [facility] Comment on above: The validity of the calculated GFR & GFRAA in patients over 70 years has not been determined. Clinical correlation is essential. Beau 06-21-2024 JONAS Telephone (UROLWS) ELIZABETH MODI ([id number]) 1940 [facility] Date Time Provider Department 06/21/24 NIKOLAI CONNOR During your visit today, we recorded the following information about you: Anaid Payne MA 06/21/2024 4:28 PM Signed ----- Message from Nikolai Connor PA-C sent at 06/21/2024 3:54 PM EST ----- No infection in the urine No cancer cells in urine, please continue the rest of the testing [facility]ai Connor [facility] [place] Susan Lopez MA 06/25/2024 8:47 AM Signed LM for [facility] to contact office to inform. GAYATRI Evans Kimberly, LPN 07/05/2024 4:27 PM Signed Called [facility]. No answer- left message to call clinic. MARV Morocho Kimberly MARV 07/09/2024 3:50 PM Signed Called [facility]. No answer- left message to call clinic. Luke Taylor MARV Luke Taylor MARV 07/09/2024 3:50 PM Signed Letter sent to patient that we have not been able to contact Angelic. Luke Taylor MARV Allergies As of Date: 06/21/2024 (No Known [...] MULTIVITAMIN ORAL) Take by mouth. - vit C,Q-Um-woyhp-lutein-ze axan (PRESERVISION AREDS-2) 250-90-40-1 mg Take 1 [...] Status:Closed by LUKE TAYLOR on 07/09/24 Normal [facility] Absolute neutrophil countOrd ered By: Victor M Rojas on 06-20-2024 Neutrophils (Bld) [#/Vol] 5.5 10*3/uL 2.0-7.7 [facility] Albumin to globulin ratioOrd ered By: Victor M Rojas on 06-20-2024 Albumin/Globulin [Mass ratio] 0.7 {ratio} Low 0.9-2.4 [facility] Basophil percentageOrdered B y: Victor M Rojas on 06-20-2024 Basophils/100 WBC (Bld) 0.3 % 0-1 [facility] Bilirubin, totalOrdered By: Victor M Rojas on 06-20-2024 Bilirubin [Mass/Vol] 0.70 mg/dL 0.20-1.00 [facility] Comment on above: For patients on eltr ombopag therapy, use of Dimension [place] TBIL is not recommended. Blood urea nitrogen (BUN)/cr eatinine ratioOrdered By: Victor M Rojas on 06-20-2024 Urea nitrogen/Creatinine [Mass ratio] 19.0 mg/mg 10-20 [facility] Carbon dioxide measurementOr dered By: Victor M Rojas on 06-20-2024 CO2 [Moles/Vol] 24.0 mmol/L 21.0-32.0 [facility] Chloride measurementOrdered By: Victor M Rojas on 06-20-2024 Chloride [Moles/Vol] 104 mmol/L 98-107 [facility] Eosinophil percentageOrdered By: Victor M Rojas on 06-20-2024 Eosinophils/100 WBC (Bld) 2.5 % 0-5 [facility] Erythrocyte distribution wid th (RBC) [Ratio]Ordered By: Victor M Rojas on 06-20-2024 Erythrocyte distribution width (RBC) [Entitic vol] 47.8 fL High 35.1-43.9 [facility] Erythrocyte distribution wid th ratioOrdered By: Victor M Rojas on 06-20-2024 Erythrocyte distribution width (RBC) [Ratio] 14.7 % High 11.6-14.6 [facility] Estimated glomerular filtrat ion rate (GFR) AmericanOrdered By: Victor M Rojas on 06-20-2024 Estimated GFR (MDRD) Amer 51 mL/min Low >60 [facility] Comment on above: GFR Calc Glomerular filtration rate ( GFR) estimationOrdered By: Victor M Rojas on 06-20-2024 Estimated GFR (MDRD) Non-Af Amer 42 mL/min Low >60 [facility] Comment on above: Non- GFR Calc Glucose measurementOrdered B y: Victor M Rojas on 06-20-2024 Glucose [Mass/Vol] 190 mg/dL High 74-106 [facility] Comment on above: Fasting Glucose resu lt greater than or equal to 126 mg/dL suggests DIABETES MELLITUS per A.D.A. criteria. Hematocrit Auto (Bld) [Volum e fraction]Ordered By: Victor M Rojas on 06-20-2024 Hematocrit (Bld) [Volume fraction] 42.8 % 40-54 [facility] Hemoglobin A1c percentageOrd ered By: Victor M Rojas on 06-20-2024 HbA1c (Bld) [Mass fraction] 8.3 % High 3.8-5.6 [facility] Comment on above: Normal < 5.7 % Predi abetic 5.7 - 6.4 % Diabetic >or= 6.5 % Please note range changes. Hemoglobin measurementOrdere d By: Victor M Rojas on 06-20-2024 Hemoglobin (Bld) [Mass/Vol] 13.6 g/dL 13.0-16.5 [facility] High density lipoprotein (HD L) measurementOrdered By: Victor M Rojas on 06-20-2024 Cholesterol in HDL [Mass/Vol] 29 mg/dL Low >40 [facility] Comment on above: The drugs N-Acetylcy steine and Metamizole may falsely depress this assay. Reference Range HDL <40 mg/dL Low HDL Cholesterol HDL >or= 60 mg/dL High HDL Cholesterol Immature granulocytes/100 WB C Auto (Bld)Ordered By: Victor M Rojas on 06-20-2024 Immature granulocytes/100 WBC (Bld) 1.900 % High 0.0-0.9 [facility] Comment on above: IG% - Immature Granu locytes (promyelocytes, myelocytes and metamyelocytes) > 1% indicates that a LEFT SHIFT is Present. Laboratory - Chemistry and C hemistry - challengeOrdered By: Victor M Rojas on 06-20-2024 AST [Catalytic activity/Vol] 37 U/L 15-37 [facility] Comment on above: Slight Hemolysis, Re sult may be falsely increased. Low density lipoprotein (LDL ) cholesterol measurementOrdered By: Victor M Rojas on 06-20-2024 Cholesterol in LDL [Mass/Vol] 46 mg/dL 0-130 [facility] Lymphocytes Auto (Unsp spec) [#/Vol]Ordered By: Victor M Rojas on 06-20-2024 Lymphocytes (Bld) [#/Vol] 1.97 10*3/uL 0.83-4.5 1 [facility] Lymphocytes/100 WBC Auto (Un sp spec)Ordered By: Victor M Rojas on 06-20-2024 Lymphocytes/100 WBC (Bld) 21.8 % 19-41 [facility] MCV (mean corpuscular volume ) determinationOrdered By: Victor M Rojas on 06-20-2024 MCV (RBC) [Entitic vol] 89.9 fL 80-94 [facility] Mean corpuscular hemoglobin (MCH) determinationOrdered By: Victor M Rjoas on 06-20-2024 MCH (RBC) [Entitic mass] 28.6 pg 27.0-32.0 [facility] Mean corpuscular hemoglobin concentration (MCHC) determinationOrdered By: Victor M Rojas on 06-20-2024 MCHC (RBC) [Mass/Vol] 31.8 g/dL Low 32-36 [facility] Mean platelet volume determi nationOrdered By: Victor M Rojas on 06-20-2024 Platelet mean volume (Bld) [Entitic vol] 11.9 fL 6.2-12.0 [facility] Monocyte percentageOrdered B y: Victor M Rojas on 06-20-2024 Monocytes/100 WBC (Bld) 13.0 % High 0-10 [facility] Neutrophil percentageOrdered By: Victor M Rojas on 06-20-2024 Neutrophils/100 WBC (Bld) 60.5 % 47-70 [facility] Nucleated red blood cell per centageOrdered By: Victor M Rojas on 06-20-2024 Nucleated RBC/100 WBC (Bld) [Ratio] 0 % 0-5 [facility] Platelet countOrdered By: Stefan Rojas on 06-20-2024 Platelets (Bld) [#/Vol] 239 10*3/uL 150-450 [facility] Potassium measurementOrdered By: Victor M Rojas on 06-20-2024 Potassium [Moles/Vol] 4.2 mmol/L 3.5-5.1 [facility] Comment on above: Slight Hemolysis, Re sult may be falsely increased. RBC Auto (Bld) [#/Vol]Ordere d By: Victor M Rojas on 06-20-2024 RBC (Bld) [#/Vol] 4.76 10*6/uL 4.6-6.2 [facility] Serum anion gap measurementO rdered By: Victor M Rojas on 06-20-2024 Anion gap [Moles/Vol] 8 mmol/L 5-15 [facility] Serum globulin measurementOr dered By: Victor M Rojas on 06-20-2024 Globulin (S) [Mass/Vol] 3.9 g/dL 2.2-4.2 [facility] Serum or plasma alanine mojica otransferase (ALT) measurementOrdered By: Victor M Rojas on 06-20-2024 ALT [Catalytic activity/Vol] 45 U/L 16-61 [facility] Serum or plasma albumin akash urement (mass/volume)Ordered By: Victor M Rojas on 06-20-2024 Albumin [Mass/Vol] 2.8 g/dL Low 3.2-5.0 [facility] Serum or plasma alkaline marielos sphatase measurementOrdered By: Victor M Rojas on 06-20-2024 ALP [Catalytic activity/Vol] 123 U/L High 45-117 [facility] Serum or plasma calcium akash urement (mass/volume)Ordered By: Victor M Rojas on 06-20-2024 Calcium [Mass/Vol] 8.4 mg/dL Low 8.5-10.1 [facility] Serum or plasma cholesterol measurement (mass/volume)Ordered By: Victor M Rojas on 06-20-2024 Cholesterol [Mass/Vol] 104 mg/dL <200 [facility] Comment on above: <200 mg/dL Desirable 200-240 mg/dL Borderline >240 mg/dL High Risk Serum or plasma creatinine m easurement (mass/volume)Ordered By: Victor M Rojas on 06-20-2024 Creatinine [Mass/Vol] 1.68 mg/dL High 0.70-1.30 [facility] Comment on above: The validity of the calculated GFR & GFRAA in patients over 70 years has not been determined. Clinical correlation is essential. Serum or plasma urea nitroge n measurement (mass/volume)Ordered By: Victor M Rojas on 06-20-2024 Urea nitrogen [Mass/Vol] 32 mg/dL High 7-18 [facility] Sodium levelOrdered By: Brandon Rojas on 06-20-2024 Sodium [Moles/Vol] 136 mmol/L 136-145 [facility] TSH QnOrdered By: Victor M Rojas on 06-20-2024 Thyroid Stimulating Hormone (TSH) 2.290 uIU/mL 0.358-3.740 [facility] Total proteinOrdered By: Prosper Rojas on 06-20-2024 Protein [Mass/Vol] 6.7 g/dL 6.4-8.2 [facility] Triglycerides measurementOrd ered By: Victor M Rojas on 06-20-2024 Triglyceride [Mass/Vol] 145 mg/dL <199 [facility] Comment on above: The drugs N-Acetylcy steine and Metamizole may falsely depress this assay.Serum Triglycerides Reference Interval Normal <150 mg/dL Borderline high 150 - 199 mg/dL High 200 - 499 mg/dL Very High > or = 500 mg/dL Very low density lipoprotein (VLDL) cholesterol measurementOrdered By: Victor M Rojas on 06-20-2024 VLDL Cholesterol 29 mg/dL 5-40 [facility] White blood cell (WBC) count Ordered By: Victor M Rojas on 06-20-2024 WBC (Bld) [#/Vol] 9.1 10*3/uL 4.4-11.0 [facility] Bacteria Ur Culton Bacteria identified Cx Nom (U) ORGANISM ID: 1 10,000 -<50,000 CFU/ml Mixed microbiota No further workup. Mixed microbiota can be due to???urine???contamina tion with skin bacteria at time of collection or presence of a long-term urinary catheter. If a new culture is needed, please consider re-education of the patient on proper midstream collection technique or straight catheterization for???urine???collecti on. Normal [facility] Comment on above: Performed By: #### 6 30-4 #### [facility] CLIA [id number] [address] [place] [address] STATES OF [facility] CNOVon 06-18-2024 CNOV Office Visit (UROLWS ) ELIZABETH MODI ([id number]) 1940 [facility] Date Time Provider Department 06/18/24 1:00 PM NIKOLAI CONNOR UROVILMA During your visit today, we recorded the following information about you: Nikolai Connor PA-C 06/18/2024 4:05 PM Signed [facility] NEW PATIENT CLINIC NOTE SERVICE DATE: June 18, 2024 NAME: Elizabeth Modi CHIEF COMPLAINT: Hematuria HISTORY OF PRESENT ILLNESS: Elizabeth Modi is a 83 year old male an new patient here for The patient reports Hematuria with a few episodes of hematuria Will get Urine sample today for culture and cytology Schedule Cystoscopy at [place] And CT Urogram at [place] We discussed the need for full hematuria [...] (ADULTS MULTIVITAMIN ORAL) Take by mouth. 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 Dr. Montgomery in [place] Congestive heart failure (HCC) DM (diab (more content not included)... Normal [facility] CREATININE BLDOrdered By: Amelia August on 06-18-2024 Creatinine [Mass/Vol] 1.37 mg/dL High 0.73 - 1.22 mg/dL [facility] GFR/1.73 sq M.predicted among non-blacks MDRD (S/P/Bld) [Vol rate/Area] 52 mL/min/{1.73_m2} Low - PINF [facility] Comment on above: Estimated Glomerular Filtration Rate [...] Interpretation and review of laboratory results Abnormal [facility] CREATININE BLDon 06-18-2024 Creatinine [Mass/Vol] 1.37 mg/dL High 0.73-1.22 [facility] Comment on above: Order Comment: Speci men Type: BLOOD SPECIMEN Ordering Facility: [facility] Address: [address] [place], [place] [address] [address] Performed By: #### C RET1 #### [facility] CLIA [id number] [address] [place] [address] [place] Creatinine and Glomerular filtration rate.predicted panel (S/P/Bld) 52 mL/min/1.73m??? Low >=60 [facility] Comment on above: Order Comment: Speci men Type: BLOOD SPECIMEN Ordering Facility: [facility] Address: [address] [place] [address] Result Comment: Alma Delia mated Glomerular Filtration [...] GFR. Performed By: #### C RET1 #### [facility] CLIA [id number] [address] [place] [address] STATES OF [facility] CYTOLOGY NON-GYNon CASE REPORT Normal [facility] Comment on above: Order Comment: Speci men Type: URINE SPECIMEN Ordering Facility: [facility] Address: [address] [place] [address] Result Comment: [facility] Cytology Report Case: [id number] Authorizing Provider: Nikolai Connor PA-C Collected: 06/18/2024 01:58 PM Ordering Location: Urology Received: 06/18/2024 02:43 PM Pathologist: Eric Sutherland MD Specimen: Urine, Cystoscopic Performed By: #### C YTONON #### [facility] CLIA [id number] [address] [place] [address] [place] CLINICAL HISTORY hematuria Normal [facility] Comment on above: Order Comment: Speci men Type: URINE SPECIMEN Ordering Facility: [facility] Address: [address] [place] [address] Performed By: #### C YTONON #### [facility] CLIA [id number] [address] [place] [address] [place] FINAL DIAGNOSIS Normal [facility] Comment on above: Order Comment: Speci men Type: URINE SPECIMEN Ordering Facility: [facility] Address: [address] [place] [address] Result Comment: A - Urine, Cystoscopic Negative for high-grade urothelial carcinoma. Acute and chronic inflammation. Blood. Performed By: #### C YTONON #### [facility] CLIA [id number] [address] [place] [address] [place] FINAL PERFORMING LAB Normal [facility] Comment on above: Order Comment: Speci men Type: URINE SPECIMEN Ordering Facility: [facility] Address: [address] [place] [address] Result Comment: Tech nical component, food processing scientist screening performed at [facility], [address] [place] [address] CLIA# [id number] Diagnostic interpretation performed at [facility], [address] [place] [address] CLIA# [id number] Options Advisor: Kemal Campos M.D. Performed By: #### C YTONON #### [facility] CLIA [id number] [address] [place] [address] [place] GROSS DESCRIPTION Normal [facility] Comment on above: Order Comment: Speci men Type: URINE SPECIMEN Ordering Facility: [facility] Address: [address] [place] [address] Result Comment: A. U rine, Cystoscopic 8 cc cloudy red fluid . ThinPrep prepared. Performed By: #### C YTONON #### [facility] CLIA [id number] [address] [place] [address] [place] Bilirubin Test strip Ql (U)O rdered By: Victor M Rojas on 06-17-2024 Bilirubin Ql (U) Negative Negative [facility] Glucose Ql (U)Ordered By: Stefan Rojas on 06-17-2024 Glucose (U) [Mass/Vol] 1000 mg/dL High Normal [facility] Ketones Test strip Ql (U)Ord ered By: Victor M Rojas on 06-17-2024 Ketones Ql (U) Negative Negative [facility] Nitrite Test strip Ql (U)Ord ered By: Milybe Bob on 06-17-2024 Nitrite Ql (U) Negative Negative [facility] Protein Test strip Ql (U)Ord ered By: Victor M Rojas on 06-17-2024 Protein Ql (U) 500 mg/dl High Negative [facility] Urine blood detectionOrdered By: Victor M Rojas on 06-17-2024 Urine Occult Blood 250 /ul High Negative [facility] Urine clarityOrdered By: Prosper Rojas on 06-17-2024 Clarity (U) Cloudy Clear [facility] Urine color determinationOrd ered By: Victor M Rojas on 06-17-2024 Color (U) Red Yellow [facility] Urine cultureOrdered By: Prosper Rojas on 06-17-2024 Bacteria identified Cx Nom (U) Culture exhibits no growth. [facility] Urine leukocyte esterase det ection by dipstickOrdered By: Victor M Rojas on 06-17-2024 Leukocyte esterase Test strip Ql (U) 25 /ul High Negative [facility] Urine pHOrdered By: Tg Rojas on 06-17-2024 pH (U) 5.0 [pH] 5.0 - 8.0 [facility] Urine specific gravity measu rementOrdered By: Victor M Rojas on 06-17-2024 Specific gravity (U) [Rel density] 1.015 1.002-1.030 [facility] Urobilinogen Ql (U)Ordered B y: Victor M Rojas on 06-17-2024 Urine Urobilinogen Normal mg/dl Normal [facility] Gastroenterology Visit Repor ton 06-06-2024 Gastroenterology Visit Report [facility] [address] [place] [address] OFFICE VISIT Date of Service: 06/06/24 MR#: [id number] Acct: [id number] Name: ELIZABETH MODI Rep #: [id number] : 1940 Provider: GILL Jefferson Age/Sex: 83/M Location: [facility] Status: Signed Intake Vital Signs 01/11/24 07:47 [...] Denies bloody stools, N/V/C and abdominal pain. 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 alcohol intake: current alcohol intake frequency: a few times a month details: Prior heavier, now occasional. substance use type: does not use HPI HPI Chief Complaint: f/u. Details: ELIZABETH MODI, is a 83 M who presents to the office today for f/u. *[facility] hospitalization 6-7 for management of choledocholithiasis (ATB Tx), calculous [...] MHD dila (more content not included)... Normal [facility] Gastroenterology Visit Repor ton 03-04-2024 Gastroenterology Visit Report [facility] [address] [place] [address] OFFICE VISIT Date of Service: 03/04/24 MR#: [id number] Acct: [id number] Name: ELIZABETH MODI Rep #: [id number] : 1940 Provider: Sohail Owen DO Age/Sex: 83/M Location: [facility] Status: Signed Intake Vital Signs 06/06/23 10:41 [...] pulmonary disease) Obesity Atherosclerotic heart disease of [place] coronary artery without angina pectoris Paroxysmal atrial [...] right below knee amputation (05/2021) Family History Mother Diabetes Father Diabetes Heart disease Social History housing: halfway Smoking Status: Former smoker how long ago did patient quit smoking: Quit . alcohol intake: current alcohol intake frequency: a few times a month details: Prior heavier, now occasional. substance use type: does not use HPI HPI Details: ELIZABETH MODI, is a 83 M who presents to the office today for follow up. *[facility] hospitalization 12.14.22-7.07.11 for management of choledocholithiasis (ATB Tx), calculous cholecystitis with obstruction and renal mass. ? US RUQ 12.14.22 left hepatic cyst 2.2x2.5x1.9cm; gallbladder pericholecystic fluid with multiple gallstones and Hunt???s sign + ? ERCP 12.15.22 entire MBD dilated with obstructing stone, biliary sphincterotomy/balloon extraction; lower MBD dilated; one temporary stent placed in CBD. ? Surgery 6.29.23 cholecystostomy tube placement. GI outpatient: ERCP 06.06.23 [...] does endorse (more content not included)... Normal [facility] BCIDon 08-02-2023 Acinetobacter landon-baumanii complex Not detected Normal Not Detected [facility] ([place]) Comment on above: Performed By: #### B MARANDA #### [place] [address] Bacteroides fragilis Not detected Normal Not Detected [facility] ([place] Comment on above: Performed By: #### B MARANDA #### [place] [address] BCID Comment See Comment Normal [facility] ([place] Comment on above: Result Comment: Anti microbial [...] follow. Performed By: #### B MARANDA #### [place] [address] Megan albicans Not detected Normal Not Detected [facility] ([place] Comment on above: Performed By: #### B MARANDA #### [place] [id number] Megan auris Not detected Normal Not Detected [facility] ([place] Comment on above: Performed By: #### B MARANDA #### [place] [address] Megan glabrata Not detected Normal Not Detected [facility] ([place] Comment on above: Performed By: #### B MARANDA #### [place] [address] Megan krusei Not detected Normal Not Detected [facility] ([place]) Comment on above: Performed By: #### B MARANDA #### [place] [address] Megan parapsilosis Not detected Normal Not Detected [facility] ([place] Comment on above: Performed By: #### B MARANDA #### [place] [address] Megan tropicalis Not detected Normal Not Detected [facility] ([place] Comment on above: Performed By: #### B MARANDA #### [place] [address] Cryptococcus neoformans-gattii Not detected Normal Not Detected [facility] ([place] Comment on above: Performed By: #### B MARANDA #### [place] [address] CTX-M (ESBL) Not Applicable Normal Not Detected [facility] ([place] Comment on above: Performed By: #### B MARANDA #### [place] [address] E. Coli Not detected Normal Not Detected [facility] ([place] Comment on above: Performed By: #### B MARANDA #### [place] [address] Enterobacter cloacae Complex Not detected Normal Not Detected [facility] ([place] Comment on above: Performed By: #### B MARANDA #### [place] [address] Enterobacterales Not detected Normal Not Detected [facility] ([place] Comment on above: Performed By: #### B MARANDA #### [place] [address] Enterococcus faecalis Not detected Normal Not Detected [facility] ([place] Comment on above: Performed By: #### B MARANDA #### [place] [address] Enterococcus faecium Not detected Normal Not Detected [facility] ([place] Comment on above: Performed By: #### B MARANDA #### [place] [address] Haemophilus influenzae Not detected Normal Not Detected [facility] ([place] Comment on above: Performed By: #### B MARANDA #### [facility] [address] [place] [address] IMP (Carbapenemase) Not Applicable Normal Not Detected [facility] ([place]) Comment on above: Performed By: #### B MARANDA #### [facility] [address] [place] [address] Klebsiella aerogenes Not detected Normal Not Detected [facility] ([place] Comment on above: Performed By: #### B MARANDA #### [facility] [address] [place] [address] Klebsiella oxytoca Not detected Normal Not Detected [facility] ([place] Comment on above: Performed By: #### B MARANDA #### [address] [address] Klebsiella pneumoniae group Not detected Normal Not Detected [facility] ([place] Comment on above: Performed By: #### B MARANDA #### [place] [address] KPC (Carbapenemase) Not Applicable Normal Not Detected [facility] ([place]) Comment on above: Performed By: #### B MARANDA #### [address] [address] Listeria monocytogenes Not detected Normal Not Detected [facility] ([place] Comment on above: Performed By: #### B MARANDA #### [address] [address] MCR-1 (Colistin Resistance) Not Applicable Normal Not Detected [facility] ([place] Comment on above: Performed By: #### B MARANDA #### [address] [address] Mec A/C Detected Abnormal Not Detected [facility] ([place]) Comment on above: Performed By: #### B MARANDA #### [address] [address] Mec A/C-MREJ (MRSA) Not Applicable Normal Not Detected [facility] ([place] Comment on above: Performed By: #### B MARANDA #### [facility] [address] [place] [address] NDM (Carbapenemase) Not Applicable Normal Not Detected [facility] ([place] Comment on above: Performed By: #### B MARANDA #### [address] [address] Neisseria meningitidis (Encapsalated) Not detected Normal Not Detected [facility] ([place] Comment on above: Performed By: #### B MARANDA #### [facility] [address] [place] [address] OXA-48 like (Carbapenemase) Not Applicable Normal Not Detected [facility] ([place] Comment on above: Performed By: #### B MARANDA #### [address] [address] Proteus Not detected Normal Not Detected [facility] ([place] Comment on above: Performed By: #### B MARANDA #### [address] [address] Pseudomonas aeruginosa Not detected Normal Not Detected [facility] ([place] Comment on above: Performed By: #### B MARANDA #### [place] [id number] S. agalactiae Org specific cx Ql (Vag fld) Not detected Normal Not Detected [facility] ([place] Comment on above: Performed By: #### B MARANDA #### [address] [address] Salmonella species Not detected Normal Not Detected [facility] ([place] Comment on above: Performed By: #### B MARANDA #### [address] [address] Serratia marcescens Not detected Normal Not Detected [facility] ([place] Comment on above: Performed By: #### B MARANDA #### [address] [address] Staphylococcus Detected Abnormal Not Detected [facility] ([place] Comment on above: Performed By: #### B MARANDA #### [address] [address] Staphylococcus aureus Not detected Normal Not Detected [facility] ([place] Comment on above: Result Comment: If S taphylococcus aureus is "Detected", an Infectious Disease physician consult is required on identification. Performed By: #### B MARANDA #### [place] [address] Staphylococcus epidermidis Detected Abnormal Not Detected [facility] ([place] Comment on above: Performed By: #### B MARANDA #### [place] [address] Staphylococcus lugdunensis Not detected Normal Not Detected [facility] ([place] Comment on above: Performed By: #### B MARANDA #### [place] [address] Stenotrophomonas maltophilia Not detected Normal Not Detected [facility] ([place] Comment on above: Performed By: #### B MARANDA #### [place] [address] Streptococcus Not detected Normal Not Detected [facility] ([place] Comment on above: Performed By: #### B MARANDA #### [place] [address] Streptococcus pneumoniae Not detected Normal Not Detected [facility] ([place] Comment on above: Performed By: #### B MARANDA #### [place] [address] Streptococcus pyogenes Not detected Normal Not Detected [facility] ([place] Comment on above: Performed By: #### B MARANDA #### [place] [address] Van A/B Not Applicable Normal Not Detected [facility] ([place] Comment on above: Performed By: #### B MARANDA #### [place] [address] VIM (Carbapenemase) Not Applicable Normal Not Detected [facility] ([place] Comment on above: Performed By: #### B MARANDA #### [place] [address] Absolute lymphocyte countOrd ered By: Dwayne Palumbo on 02-08-2023 Lymphocytes Auto (Unsp spec) [#/Vol] 1.91 10*3/uL 0.83-4.51 [facility] Basophil percentageOrdered B y: Dwayne Palumbo on 02-08-2023 Basophils/100 WBC (Bld) 0.2 % 0-1 [facility] Bilirubin [Mass/Vol] 0.90 mg/dL 0.20-1.00 [facility] Comment on above: For patients on eltr ombopag therapy, use of Dimension [place] TBIL is not recommended. Chloride [Moles/Vol] 105 mmol/L 98-107 [facility] Eosinophils/100 WBC (Bld) 2.7 % 0-5 [facility] Glucose [Mass/Vol] 191 mg/dL 74-106 [facility] Comment on above: Fasting Glucose resu lt greater than or equal to 126 mg/dL suggests DIABETES MELLITUS per A.D.A. criteria. Neutrophils (Bld) [#/Vol] 7.0 10*3/uL 2.0-7.7 [facility] Neutrophils/100 WBC (Bld) 66.4 % 47-70 [facility] Potassium [Moles/Vol] 4.1 mmol/L 3.5-5.1 [facility] Protein [Mass/Vol] 8.0 g/dL 6.4-8.2 [facility] Sodium [Moles/Vol] 137 mmol/L 136-145 [facility] WBC (Bld) [#/Vol] 10.5 10*3/uL 4.4-11.0 [facility] Blood erythrocytes count (nu mber/volume)Ordered By: Dwayne Palumbo on 02-08-2023 RBC (Bld) [#/Vol] 4.64 10*6/uL 4.6-6.2 [facility] Blood hemoglobin measurement (mass/volume)Ordered By: Dwayne Palumbo on 02-08-2023 Hemoglobin (Bld) [Mass/Vol] 12.7 g/dL 13.0-16.5 [facility] Blood lymphocytes/100 leukoc ytesOrdered By: Dwayne Palumbo on 02-08-2023 Lymphocytes/100 WBC (Bld) 18.2 % 19-41 [facility] Blood monocytes/100 leukocyt esOrdered By: Dwayne Palumbo on 02-08-2023 Monocytes/100 WBC (Bld) 11.2 % 0-10 [facility] Blood platelet mean volumeOr dered By: Dwayne Palumbo on 02-08-2023 Platelet mean volume (Bld) [Entitic vol] 10.7 fL 6.2-12.0 [facility] Determination of erythrocyte mean corpuscular volume (MCV)Ordered By: Dwayne Palumbo on 02-08-2023 MCV (RBC) [Entitic vol] 86.6 fL 80-94 [facility] Hematocrit Auto (Bld) [Volum e fraction]Ordered By: Dwayne Palumbo on 02-08-2023 Hematocrit (Bld) [Volume fraction] 40.2 % 40-54 [facility] Laboratory - Chemistry and C hemistry - challengeOrdered By: Dwayne Palumbo on 02-08-2023 ALP [Catalytic activity/Vol] 122 U/L 45-117 [facility] ALT [Catalytic activity/Vol] 42 U/L 16-61 [facility] CO2 [Moles/Vol] 23.0 mmol/L 21.0-32.0 [facility] Globulin (S) [Mass/Vol] 4.6 g/dL 2.2-4.2 [facility] Urea nitrogen/Creatinine [Mass ratio] 25.7 mg/mg 10-20 [facility] Laboratory - Hematology and Cell countsOrdered By: Dwayne Palumbo on 02-08-2023 Erythrocyte distribution width (RBC) [Entitic vol] 50.7 fL 35.1-43.9 [facility] Erythrocyte distribution width (RBC) [Ratio] 16.1 % 11.6-14.6 [facility] Immature granulocytes/100 WBC (Bld) 1.300 % 0.0-0.9 [facility] Comment on above: IG% - Immature Granu locytes (promyelocytes, myelocytes and metamyelocytes) > 1% indicates that a LEFT SHIFT is Present. MCH (RBC) [Entitic mass] 27.4 pg 27.0-32.0 [facility] Nucleated RBC/100 WBC (Bld) [Ratio] 0 % 0-5 [facility] MCHC Auto (RBC) [Mass/Vol]Or dered By: Dwayne Palumbo on 02-08-2023 MCHC (RBC) [Mass/Vol] 31.6 g/dL 32-36 [facility] No Panel InformationOrdered By: Dwayne Palumbo on 02-08-2023 Estimated GFR (MDRD) Amer 46 mL/min >60 [facility] Comment on above: GFR Calc Estimated GFR (MDRD) Non-Af Amer 38 mL/min >60 [facility] Comment on above: Non- GFR Calc Platelets bldOrdered By: Edilson chu Deepali on 02-08-2023 Platelets (Bld) [#/Vol] 275 10*3/uL 150-450 [facility] Serum or plasma albumin akash urement (mass/volume)Ordered By: Dwayne Palumbo on 02-08-2023 Albumin [Mass/Vol] 3.4 g/dL 3.2-5.0 [facility] Serum or plasma albumin/glob ulin mass ratioOrdered By: Dwayne Palumbo on 02-08-2023 Albumin/Globulin [Mass ratio] 0.7 {ratio} 0.9-2.4 [facility] Serum or plasma calcium akash urement (mass/volume)Ordered By: Dwayne Palumbo on 02-08-2023 Calcium [Mass/Vol] 9.4 mg/dL 8.5-10.1 [facility] Serum or plasma creatinine m easurement (mass/volume)Ordered By: Dwayne Palumbo on 02-08-2023 Creatinine [Mass/Vol] 1.83 mg/dL 0.70-1.30 [facility] Comment on above: The validity of the calculated GFR & GFRAA in patients over 70 years has not been determined. Clinical correlation is essential. Serum or plasma urea nitroge n measurement (mass/volume)Ordered By: Dwayne Palumbo on 02-08-2023 Urea nitrogen [Mass/Vol] 47 mg/dL 7-18 [facility] Thin prep Papanicolaou smear with manual screeningOrdered By: Dwayne Palumbo on 02-08-2023 Thin prep Papanicolaou smear with manual screening 30 U/L 15-37 [facility] Thin prep Papanicolaou smear with manual screening 9 5-15 [facility] Absolute lymphocyte countOrd ered By: Jesse Haywood on 12-17-2022 Lymphocytes Auto (Unsp spec) [#/Vol] 0.86 10*3/uL 0.83-4.51 [facility] Basophil percentageOrdered B y: Jesse Haywood on 12-17-2022 Basophils/100 WBC (Bld) 0.1 % 0-1 [facility] Chloride [Moles/Vol] 113 mmol/L 98-[address] [facility] Eosinophils/100 WBC (Bld) 0.2 % 0-5 [facility] Glucose [Mass/Vol] 178 mg/dL 74-106 [facility] Comment on above: Fasting Glucose resu lt greater than or equal to 126 mg/dL suggests DIABETES MELLITUS per A.D.A. criteria. Neutrophils (Bld) [#/Vol] 8.2 10*3/uL 2.0-7.7 [facility] Neutrophils/100 WBC (Bld) 80.2 % 47-70 [facility] Potassium [Moles/Vol] 3.8 mmol/L 3.5-5.1 [facility] Sodium [Moles/Vol] 141 mmol/L 136-145 [facility] WBC (Bld) [#/Vol] 10.2 10*3/uL 4.4-11.0 [facility] Blood erythrocytes count (nu mber/volume)Ordered By: Jesse Haywood on 12-17-2022 RBC (Bld) [#/Vol] 3.91 10*6/uL 4.6-6.2 [facility] Blood hemoglobin measurement (mass/volume)Ordered By: Jesse Haywood on 12-17-2022 Hemoglobin (Bld) [Mass/Vol] 11.1 g/dL 13.0-16.5 [facility] Blood lymphocytes/100 leukoc ytesOrdered By: Jesse Haywood on 12-17-2022 Lymphocytes/100 WBC (Bld) 8.4 % 19-41 [facility] Blood monocytes/100 leukocyt esOrdered By: Jesse Haywood on 12-17-2022 Monocytes/100 WBC (Bld) 9.2 % 0-10 [facility] Blood platelet mean volumeOr dered By: Jesse Hyawood on 12-17-2022 Platelet mean volume (Bld) [Entitic vol] 11.4 fL 6.2-12.0 [facility] Determination of erythrocyte mean corpuscular volume (MCV)Ordered By: Jesse Haywood on 12-17-2022 MCV (RBC) [Entitic vol] 87.7 fL 80-94 [facility] Glucose Glucometer (BldC) [M ass/Vol]Ordered By: Jesse Haywood on 12-17-2022 Glucose [Mass/Vol] 216 mg/dL 74-106 [facility] Comment on above: MANAGEMENT OF PATIEN T CARE PER NURSING PROTOCOL Hematocrit Auto (Bld) [Volum e fraction]Ordered By: Jesse Haywood on 12-17-2022 Hematocrit (Bld) [Volume fraction] 34.3 % 40-54 [facility] Laboratory - Chemistry and C hemistry - challengeOrdered By: Jesse Haywood on 12-17-2022 CO2 [Moles/Vol] 21.0 mmol/L 21.0-32.0 [facility] Urea nitrogen/Creatinine [Mass ratio] 30.1 mg/mg 10-20 [facility] Laboratory - Hematology and Cell countsOrdered By: Jesse Haywood on 12-17-2022 Erythrocyte distribution width (RBC) [Entitic vol] 47.4 fL 35.1-43.9 [facility] Erythrocyte distribution width (RBC) [Ratio] 14.7 % 11.6-14.6 [facility] Immature granulocytes/100 WBC (Bld) 1.900 % 0.0-0.9 [facility] Comment on above: IG% - Immature Granu locytes (promyelocytes, myelocytes and metamyelocytes) > 1% indicates that a LEFT SHIFT is Present. MCH (RBC) [Entitic mass] 28.4 pg 27.0-32.0 [facility] Nucleated RBC/100 WBC (Bld) [Ratio] 0 % 0-5 [facility] MCHC Auto (RBC) [Mass/Vol]Or dered By: Jesse Haywood on 12-17-2022 MCHC (RBC) [Mass/Vol] 32.4 g/dL 32-36 [facility] No Panel InformationOrdered By: Jesse Haywood on 12-17-2022 Estimated Creatinine Clearance Calc 34.17 ml/min [facility] Estimated GFR (MDRD) Amer 56 mL/min >60 [facility] Comment on above: GFR Calc Estimated GFR (MDRD) Non-Af Amer 47 mL/min >60 [facility] Comment on above: Non- GFR Calc Platelets bldOrdered By: Stephanie Haywood on 12-17-2022 Platelets (Bld) [#/Vol] 248 10*3/uL 150-450 [facility] Serum or plasma calcium akash urement (mass/volume)Ordered By: Jesse Haywood on 12-17-2022 Calcium [Mass/Vol] 8.0 mg/dL 8.5-10.1 [facility] Serum or plasma creatinine m easurement (mass/volume)Ordered By: Jesse Haywood on 12-17-2022 Creatinine [Mass/Vol] 1.53 mg/dL 0.70-1.30 [facility] Comment on above: The validity of the calculated GFR & GFRAA in patients over 70 years has not been determined. Clinical correlation is essential. Serum or plasma urea nitroge n measurement (mass/volume)Ordered By: Jesse Haywood on 12-17-2022 Urea nitrogen [Mass/Vol] 46 mg/dL 7-18 [facility] Thin prep Papanicolaou smear with manual screeningOrdered By: Jesse Haywood on 12-17-2022 Thin prep Papanicolaou smear with manual screening 7 5-15 [facility] Bacteria identified Anaer cx Nom (Unsp spec)Ordered By: Dwayne Palumbo on 12-16-2022 Anaerobic Culture Bacteroides vulgatus [facility] Bacteria identified Cx Nom ( Wound)Ordered By: Dwayne Palumbo on 12-16-2022 Wound Culture Escherichia coli [facility] Basophil percentageOrdered B y: Jesse Haywood on 12-16-2022 Bilirubin [Mass/Vol] 2.00 mg/dL 0.20-1.00 [facility] Comment on above: For patients on eltr ombopag therapy, use of Dimension [place] TBIL is not recommended. Protein [Mass/Vol] 6.4 g/dL 6.4-8.2 [facility] Gram stain for investigation of transfusion reactionOrdered By: Dwayne Palumbo on 12-16-2022 Microscopic observation Gram stain Nom (Unsp spec) [facility] INR in Blood by Coagulation assayOrdered By: Emmanuel Kohler on 12-16-2022 INR Coag (Bld) [Relative time] 1.3 {INR} [facility] Laboratory - Chemistry and C hemistry - challengeOrdered By: Jesse Haywood on 12-16-2022 ALP [Catalytic activity/Vol] 278 U/L 45-117 [facility] ALT [Catalytic activity/Vol] 132 U/L 16-61 [facility] Globulin (S) [Mass/Vol] 4.2 g/dL 2.2-4.2 [facility] Laboratory - CoagulationOrde red By: Emmanuel Kohler on 12-16-2022 PT Coag (PPP) [Time] 16.5 s 11.7-14.9 [facility] Serum or plasma albumin akash urement (mass/volume)Ordered By: Jesse Haywood on 12-16-2022 Albumin [Mass/Vol] 2.2 g/dL 3.2-5.0 [facility] Serum or plasma albumin/glob ulin mass ratioOrdered By: Jesse Haywood on 12-16-2022 Albumin/Globulin [Mass ratio] 0.5 {ratio} 0.9-2.4 [facility] Thin prep Papanicolaou smear with manual screeningOrdered By: Jesse Haywood on 12-16-2022 Thin prep Papanicolaou smear with manual screening 74 U/L 15-37 [facility] Blood manual differential co mment interpretation (narrative result)Ordered By: Jesse Haywood on 12-15-2022 Manual differential comment Ghassan (Bld) [Interp] COMMENT [facility] Comment on above: MONOCYTOSIS. Laboratory - CoagulationOrde red By: Jesse Wang on 12-15-2022 aPTT Coag (Bld) [Time] 38.5 s 24.1-36.2 [facility] No Panel InformationOrdered By: Jesse Wang on 12-15-2022 Thyroid Stimulating Hormone (TSH) 1.50 uIU/mL 0.358-3.74 [facility] Review by pathologistOrdered By: Jesse Haywood on 12-15-2022 Pathologist review Ghassan (Unsp spec) [Interp] Reviewed [facility] Comment on above: Previous reported re sult: Stacy noonan Edited by: RGOOD on 12/15/22:1321Neutrophilic leukocytosis.Clinical correlation necessary.Raymond Knox M.D. 12/15/22 AMENDED REPORT 12/15/22 1321 PATH REV previously reported as: Stacy noonan Whole blood hemoglobin A1c/t otal hemoglobin ratio (mass fraction)Ordered By: Jesse Wang on 12-15-2022 HbA1c (Bld) [Mass fraction] 6.9 % 3.8-5.6 [facility] Comment on above: Normal < 5.7 % Predi abetic 5.7 - 6.4 % Diabetic >or= 6.5 % Please note range changes. BLOOD TB SCREENon 09-02-2022 M. tuberculosis tuberculin stim IFN-g Ql (Bld) Negative [facility] Mitogen minus Nil 5.42 IU/mL >=0.50 IU/mL [facility] TB Gamma Interpretation Infection with M . tuberculosis complex is unlikely. If latent tuberculosis infection is highly suspected, a negative result does not rule out the infection. Specimens from immunocompromised patients and those <5 years of age may show false negative results. In case of a contact investigation, please repeat 8-12 weeks after a known exposure. [facility] TB Nil 0.02 IU/mL <=8.00 IU/mL [facility] TB1 Ag minus Nil 0.00 IU/mL <0.35 IU/mL [facility] TB2 Ag minus Nil <0.35 IU/mL [facility] CBC W Auto Differential pane l (Bld)on 09-02-2022 Anisocytosis Ql (Bld) Present [facility] Basophils (Bld) [#/Vol] 0.00 10*3/uL <0.11 k/uL [facility] Basophils/100 WBC (Bld) 0.0 % [facility] Differential cell count method Nom (Bld) Manual [facility] Eosinophils (Bld) [#/Vol] 0.14 10*3/uL <0.46 k/ uL [facility] Eosinophils/100 WBC (Bld) 1.0 % [facility] Erythrocyte distribution width (RBC) [Ratio] 16.4 % High 11.5 - 15.0 % [facility] Hematocrit (Bld) [Volume fraction] 45.3 % 39.0 - 51.0 % [facility] Hemoglobin (Bld) [Mass/Vol] 14.4 g/dL 13.0 - 17.0 g/dL [facility] Lymphocytes (Bld) [#/Vol] 1.43 10*3/uL 1. 00 - 4.00 k/uL [facility] Lymphocytes/100 WBC (Bld) 10.0 % [facility] MCH (RBC) [Entitic mass] 29.9 pg 26. 0 - 34.0 pg [facility] MCHC (RBC) [Mass/Vol] 31.8 g/dL 30.5 - 36.0 g/dL [facility] MCV (RBC) [Entitic vol] 94.0 fL 80.0 - 100.0 fL [facility] [place] % 1.0 % [facility] Monocytes (Bld) [#/Vol] 1.00 10*3/uL High <0.87 k/uL [facility] Monocytes/100 WBC (Bld) 7.0 % [facility] Neutrophils (Bld) [#/Vol] 11.57 10*3/uL High 1 .45 - 7.50 k/uL [facility] Neutrophils/100 WBC (Bld) 81.0 % [facility] Nucleated RBC (Bld) [#/Vol] <0.01 k/uL [facility] Nucleated RBC/100 WBC (Bld) [Ratio] 0.0 /100 WBC [facility] Ovalocytes LM Ql (Bld) Few Cl [facility] Platelet mean volume (Bld) [Entitic vol] 11.1 fL 9.0 - 12.7 fL [facility] Platelets (Bld) [#/Vol] 282 10*3/uL 150 - 400 k/uL [facility] Platelets Estimate (Bld) [#/Vol] Adequate [facility] Polychromasia LM Ql (Bld) Slight [facility] RBC (Bld) [#/Vol] 4.82 10*6/uL 4.20 - 6.0 0 m/uL [facility] Red Cell Morph Reviewed: see result s of individual morphologies [facility] WBC (Bld) [#/Vol] 14.29 10*3/uL High 3.70 - 11.00 k/uL [facility] WBC Left Shift Ql (Bld) Present C [facility] C-REACTIVE PROTEIN (CRP)on 0 09-01-2022 CRP [Mass/Vol] <0.9 mg/dL [facility] Comprehensive metabolic 2000 panelon 09-01-2022 Albumin [Mass/Vol] 4.0 g/dL 3.9 - 4.9 g/dL [facility] ALP [Catalytic activity/Vol] 88 U/L 38 - 113 U/L [facility] ALT [Catalytic activity/Vol] 19 U/L 10 - 54 U/L [facility] Anion gap [Moles/Vol] 11 mmol/L 9 - 18 mmol/L [facility] AST [Catalytic activity/Vol] 19 U/L 14 - 40 U/L [facility] Bilirubin [Mass/Vol] 0.5 mg/dL 0.2 - 1 .3 mg/dL [facility] Calcium [Mass/Vol] 9.4 mg/dL 8.5 - 10. 2 mg/dL [facility] Chloride [Moles/Vol] 106 mmol/L High 97 - 10 5 mmol/L [facility] CO2 [Moles/Vol] 21 mmol/L Low 22 - 30 mmol/L [facility] Creatinine [Mass/Vol] 2.01 mg/dL High 0.73 - 1.22 mg/dL [facility] Estimated Glomerular Filtration Rate 33 mL/min/1.73m Low >=60 mL/min/1.73 m [facility] Glucose [Mass/Vol] 146 mg/dL High 74 - 99 mg/dL [facility] Potassium [Moles/Vol] 4.5 mmol/L 3.7 - 5.1 mmol/L [facility] Protein [Mass/Vol] 7.2 g/dL 6.3 - 8.0 g/dL [facility] Sodium [Moles/Vol] 138 mmol/L 136 - 144 mmol/L [facility] Urea nitrogen [Mass/Vol] 50 mg/dL High 9 - 24 mg/dL [facility] ESR Westergren method (Bld) [Velocity]on 09-01-2022 ESR (Bld) [Velocity] 31 mm/h High 0 - 15 mm/hr [facility] VITAMIN D 25 HYDROXYon 09-01 25-hydroxyvitamin D3 [Mass/Vol] 27.8 ng/mL Low 31.0 - 80.0 ng/mL [facility] LABORATORYOrdered By: Micehlle Gardner on 01-13-2022 Blood Glucose Testing Reason Routine (01/13/22 11:36 AM) [facility] Work Phone: Glucose [Mass/Vol] 101 mg/dL Invalid Interpretation Code 82 - 115 mg/dL [facility] Work Phone: Blood Glucose Testing Reason Routine (7/28/22 7:06 AM) [facility] Work Phone: Glucose [Mass/Vol] 87 mg/dL Invalid Interpretation Code 82 - 115 mg/dL [facility] Work Phone: LABORATORYOrdered By: SYSTEM SYSTEM [...] 10^3/mcL AH Workflow SS Eosinophils/100 WBC (Bld) 1.0 % Invali d Interpretation Code 0.0 - 6.0 % AH Workflow SS Erythrocyte distribution width (RBC) [Ratio] 16.4 % Invalid Interpretation Code 11.5 - 15.5 % AH Workflow SS GFR/1.73 sq M.predicted among blacks MDRD (S/P/Bld) [Vol rate/Area] 47 ml/min/1.73sqm Invalid Interpretation Code ADM SS GFR/1.73 [...] Code 2.0 - 13.0 % Workflow SS Myelocytes/100 WBC (Bld) 1.0 % Invalid Interpretation Code Workflow SS Neutrophils (Bld) [#/Vol] 11.4 103/mcL Invali d Interpretation Code 2.3 - 8.1 10^3/mcL Workflow SS Neutrophils/100 WBC (Bld) 86.0 % Invali d Interpretation Code 50.0 - 75.0 % Workflow SS Nucleated RBC 0.0 /100 WBC Invalid Interpretation Code Workflow SS Platelet mean volume (Bld) [Entitic vol] 7.7 fL Invalid Interpretation Code 6.4 - 10.5 fL Workflow SS Platelets (Bld) [#/Vol] 406 103/mcL Invalid Interpretation Code 150 - 450 10^3/mcL Workflow SS Platelets LM Ql (Bld) Normal *NA* (01/13/22 4:48 AM) Invalid Interpretation Code Workflow SS Polychromasia LM Ql (Bld) 1+ *NA* (01/13/22 4:48 AM) Invalid Interpretation Code Workflow SS Potassium [Moles/Vol] 4.6 mmol/L Invalid Interpretation Code 3.5 - 5.0 mEq/L AH ADM SS RBC (Bld) [#/Vol] 3.56 106/mcL Invalid Interpretation Code 4.50 - 6.00 10^6/mcL Workflow SS Sodium [Moles/Vol] 138 mmol/L Invalid Interpretation Code 136 - 145 mEq/L ADM SS Urea nitrogen [Mass/Vol] 42.0 mg/dL Invalid Interpretation Code 8.0 - 22.0 mg/dL ADM SS Urea nitrogen/Creatinine [Mass ratio] 24.4 ratio Invalid Interpretation Code 10.0 - 22.0 ratio ADM SS WBC 13.2 103/mcL Invalid Interpretation Code 4.5 - 10.8 10^3/mcL Workflow SS LABORATORYOrdered By: Kassidy Lopez on 01-13-2022 INR Coag (PPP) [Relative time] 1.1 {INR} Invalid Interpretation Code AH Auto Coag SS PT Coag (PPP) [Time] 13.2 s Invalid Interpretation Code 9.0 - 14.9 seconds AH Auto Coag SS LABORATORYOrdered By: Zoltan Pete on 01-12-2022 Blood Glucose Testing Reason Routine (01/12/22 8:59 PM) [facility] Work Phone: Glucose [Mass/Vol] 153 mg/dL Invalid Interpretation Code 82 - 115 mg/dL [facility] Work Phone: LABORATORYOrdered By: Adali Spencer on 01-12-2022 Date of Onset [id number] Invalid Interpretation Code Auto Viro/Sero SS Employed in Healthcare No (01/12/22 10:33 AM) Invalid Interpretation Code AH Auto Viro/Sero SS First Test No (01/12/22 10:33 AM) Invalid Interpretation Code Auto Viro/Sero SS FLU A PCR Negative 7 (01/12/22 10:33 AM) Invalid Interpretation Code Negative AH Auto Viro/Sero SS Comment on above: Result Comment: Note s [id number] FLU B PCR Negative 8 (01/12/22 10:33 AM) Invalid Interpretation Code Negative AH Auto Viro/Sero SS Comment on above: Result Comment: [place] s [id number] Hospitalized Yes (01/12/22 10:33 AM) Invalid Interpretation [...] Comment on above: Result Comment: Note s [id number] SARS-CoV-2 (COVID-19) RNA ARIELLE+probe Ql (Unsp spec) Negative 6 (01/12/22 10:33 AM) Invalid Interpretation Code Negative AH Auto Viro/Sero SS Comment on above: Result Comment: Note s [id number] Symptomatic as Defined by CDC No (01/12/22 [...] WBC (Bld) 3.0 % Invalid Interpretation Code AH Workflow SS Neutrophils (Bld) [#/Vol] 8.9 103/mcL Invali d Interpretation Code 2.3 - 8.1 10^3/mcL AH Workflow SS Neutrophils/100 WBC (Bld) 78.0 % Invali d Interpretation Code 50.0 - 75.0 % AH Workflow SS Nucleated RBC 0.0 /100 WBC Invalid Interpretation Code Workflow SS Platelet mean volume (Bld) [Entitic vol] 7.7 fL Invalid Interpretation Code 6.4 - 10.5 fL AH Workflow SS Platelets (Bld) [#/Vol] 386 103/mcL Invalid Interpretation Code 150 - 450 10^3/mcL Workflow SS Platelets LM Ql (Bld) Normal *NA* (01/12/22 4:51 AM) Invalid Interpretation Code Workflow SS Polychromasia LM Ql (Bld) 1+ *NA* (01/12/22 4:51 AM) Invalid Interpretation Code Workflow SS Potassium [Moles/Vol] 4.1 mmol/L Invalid Interpretation Code 3.5 - 5.0 mEq/L AH ADM SS RBC (Bld) [#/Vol] 3.61 106/mcL Invalid Interpretation Code 4.50 - 6.00 10^6/mcL AH Workflow SS Sodium [Moles/Vol] 138 mmol/L Invalid Interpretation Code 136 - 145 mEq/L AH ADM SS Urea nitrogen [Mass/Vol] 32.0 mg/dL Invalid Interpretation Code 8.0 - 22.0 mg/dL AH ADM SS Urea nitrogen/Creatinine [Mass ratio] 23.4 ratio Invalid Interpretation Code 10.0 - 22.0 ratio AH ADM SS WBC 11.4 103/mcL Invalid Interpretation Code 4.5 - 10.8 10^3/mcL AH Workflow SS LABORATORYOrdered By: Jocelyn Stone on 01-12-2022 INR Coag (PPP) [Relative time] 1.1 {INR} Invalid Interpretation Code AH Auto Coag SS PT Coag (PPP) [Time] 13.6 s Invalid Interpretation Code 9.0 - 14.9 seconds Auto Coag SS LABORATORYOrdered By: SYSTEM SYSTEM on 01-11-2022 Magnesium [Mass/Vol] 1.3 mg/dL Invalid Interpretation Code 1.6 - 2.4 mg/dL ADM SS Potassium [Moles/Vol] 4.4 mmol/L Invalid Interpretation Code 3.5 - 5.0 mEq/L ADM SS Anisocytosis Ql (Bld) 1+ *NA* (01/11/22 4:01 AM) Invalid Interpretation Code Workflow SS Band form neutrophils/100 WBC (Bld) 1.0 % Invalid Interpretation Code 0.0 - 5.0 % Workflow SS Basophils (Bld) [#/Vol] 0.0 103/mcL Invalid Interpretation Code 0.0 - 0.3 10^3/mcL Workflow SS Basophils/100 WBC (Bld) 0.0 % Invalid Interpretation Code 0.0 - 2.5 % Workflow SS Calcium [Mass/Vol] 8.7 mg/dL Invalid [...] 0.7 10^3/mcL Workflow SS Eosinophils/100 WBC (Bld) 2.0 % Invali d Interpretation Code 0.0 - 6.0 % Workflow SS Erythrocyte distribution width (RBC) [Ratio] 15.7 % Invalid Interpretation Code 11.5 - 15.5 % Workflow SS GFR/1.73 sq M.predicted among blacks MDRD (S/P/Bld) [Vol rate/Area] 60 ml/min/1.73sqm Invalid Interpretation Code ADM SS GFR/1.73 [...] Code 2.0 - 13.0 % Workflow SS Myelocytes/100 WBC (Bld) 2.0 % [...] 1.4 10^3/mcL Workflow SS Monocytes/100 WBC (Bld) 9.6 % [...] 1.4 10^3/mcL Workflow SS Monocytes/100 WBC (Bld) 9.7 % [...] 0.3 10^3/mcL Workflow SS Basophils/100 WBC (Bld) 0.5 % [...] 4.3 10^3/mcL Workflow SS Lymphocytes/100 WBC (Bld) 6.7 % Invali d Interpretation Code 20.0 - 40.0 % AH Workflow SS Monocytes (Bld) [#/Vol] 1.0 103/mcL Invalid Interpretation Code 0.1 - 1.4 10^3/mcL Workflow SS Monocytes/100 WBC (Bld) 8.2 % Invalid Interpretation Code 2.0 - 13.0 % Workflow SS Neutrophils (Bld) [#/Vol] 10.6 103/mcL Invali d Interpretation Code 2.3 - 8.1 10^3/mcL Workflow SS Neutrophils/100 WBC (Bld) 84.5 % Invali d Interpretation Code 50.0 - 75.0 % Workflow SS LABORATORYOrdered By: Brigida Knott on 01-06-2022 Blood Glucose Interventions Administered food/juice (01/06/22 8:38 AM) [facility] Work Phone: LABORATORYOrdered By: SYSTEM SYSTEM [...] Invalid Interpretation Code 250 - 560 mg/dL Auto Coag SS Heparin dose (APTT) Heparin [...] Invalid Interpretation Code 22.0 - 30.0 mmol/L Auto Chem SS HCO3 (Bld) [Moles/Vol] 21.7 [...] [pH] Invalid Interpretation Code 7.380 - 7.460 Auto Chem SS Calcium.ionized (Bld) [Mass/Vol] 1.18 [...] Interpretation Code BB Manual SS LABORATORYOrdered By: [employer] SYSTEM on 01-04-2022 Albumin BCP dye [Mass/Vol] 3.3 G/dL Invalid Interpretation Code 3.2 - 4.8 G/dL AH ADM SS Albumin/Globulin [Mass ratio] 1.0 {ratio} [...] Invalid Interpretation Code 1.5 - 3.8 G/dL ADM SS Platelet Clumps Few *NA* (01/04/22 4:24 AM) Invalid Interpretation Code AH Workflow SS Protein [Mass/Vol] 6.6 G/dL Invalid Interpretation Code 5.7 - 8.2 G/dL ADM SS RBC morphology finding Nom (Bld) See Below 5 *NA* (01/04/22 4:24 AM) Invalid Interpretation Code AH Workflow SS Comment on above: Result Comment: [...] Blood Glucose Interventions Retest (12/30/21 8:53 AM) [facility] Work Phone: LABORATORYOrdered By: Rohan Rivero on 12-30-2021 Cholesterol [Mass/Vol] 129 mg/dL Invalid Interpretation Code 50 - 199 mg/dL ADM SS Cholesterol in HDL [Mass/Vol] 24 [...] to increase blood sugar (12/30/21 8:32 AM) [facility] Work Phone: Hemoglobin A1con 08-04-2021 Glucose [Mass/Vol] 258 mg/dL Normal [facility] Comment on above: Performed By: #### H BA1C #### [facility] Laboratories Routine Lab [address] [place], [place] [address] HbA1c (Bld) [Mass fraction] 10.6 % High 4.3-5.6 [facility] Reference Lab Comment on above: Performed By: #### H BA1C #### [facility] Laboratories Routine Lab [address] [place], [place] [address] Glucose,Bedsideon 02-09-2021 Glucose [Mass/Vol] 185 mg/dL High 70-100 [facility] Comment on above: Result Comment: Test performed by glucose meter. Results may be 10%-15% lower than serum/plasma values. (CLIA ID [id number]) Performed By: #### B GLU #### [facility] [address] [place] [address] Glucose [Mass/Vol] 284 mg/dL High 70-100 [facility] Comment on above: Result Comment: Test performed by glucose meter. Results may be 10%-15% lower than serum/plasma values. (CLIA ID [id number]) Performed By: #### B GLU #### [facility] [place]. com. cn System [address] [place] [address] OPERATIVE REPORTOrdered By: 3m Scanning on 02-09-2021 [facility] Work Phone: Op Noteon 02-09-2021 Op Note [facility] l Dictation: Topical Anesthesia Note Patient Name: Elizabeth Modi : 1940 Date of Procedure: 02/09/2021 Surgeon: Ammy Vicente M.D. [facility] Associate Professor: Rachel Elder MD Anesthesia: Monitored Anesthesia Care [...] then created using a cystotome and utrata forceps.[place]-dissecti on and hydro-delineation were then performed. Phacoemulsification [...] or any other concerns. Operative Note Normal [facility] POCT GlucoseOrdered By: Gayatri Vicente on 02-09-2021 Glucose [Mass/Vol] 185 mg/dL High 70 - 100 mg/dL [employer] Work Phone: Comment on above: Test performed by [employer] ucose meter. Results may be 10%-15% lower than serum/plasma values. (CLIA ID [id number]) Interpretation and review of laboratory results Abnormal [employer] Work Phone: Test Performed by [employer], [address] [place] [address] [employer] Work Phone: [employer] Work Phone: Glucose [Mass/Vol] 284 mg/dL High 70 - 100 mg/dL [employer] Work Phone: Comment on above: Test performed by [employer] ucose meter. Results may be 10%-15% lower than serum/plasma values. (CLIA ID [id number]) Interpretation and review of laboratory results Abnormal [facility] Work Phone: Test Performed by [employer], [address] [place] [address] [employer] Work Phone: [employer] Work Phone: Hemoglobin A1con 12-03-2020 Glucose [Mass/Vol] 194 mg/dL Normal [facility] Reference Lab Comment on above: Performed By: #### H BA1C #### [facility] Laboratories Routine Lab [address], [place] [id number] HbA1c (Bld) [Mass fraction] 8.4 % High 4.3-5.6 [facility] Reference Lab Comment on above: Performed By: #### H BA1C #### [facility] Laboratories Routine Lab [address] [place], [place] [address] ECHOCARDIOGRAM LIMITED/FOLLO WUGerardo 11-13-2020 ECHOCARDIOGRAM LIMITED/FOLLOWUP ? Limited echocardiogram for [...] 06/08/2020, LV function has improved. Facility [facility] Patient Information Patient Name [place] Modi Legal [...] Role Read Date Dwayne Carrasco MD Echo [place] 11/13/2020 Left Heart Measurements LV - Systole [...] - Mitral Valve Stenosis MV pk E kmaar 0.72 m/s MV pk A kamar 1.11 [...] patient's inability to turn. Imaging system used: [place]. Exam Details Performed Procedure (more content not included)... Normal [facility] Hemoglobin A1con 09-10-2020 Glucose [Mass/Vol] 177 mg/dL Normal [facility] Reference Lab Comment on above: Performed By: #### H BA1C #### [facility] Laboratories Routine Lab [address] [place], [place] [address] HbA1c (Bld) [Mass fraction] 7.8 % High 4.3-5.6 [facility] Reference Lab Comment on above: Performed By: #### H BA1C #### [facility] Laboratories Routine Lab [address] [place] [id number] Beau 05-20-2020 CNPN Telephone (AGBe my eyes) ELIZABETH MODI ([id number]) 1940 M Date Time Provider Department 05/20/20 [...] Encounter Status:Closed by ZOLTAN EWING on 05/20/20 [facility] JONAS Telephone (AGBe my eyes) ELIZABETH MODI ([id number]) 1940 M Date Time Provider Department 05/20/20 RYAN ALLEN During your visit today, we recorded the following information about you: Bren Santos 05/20/2020 2:52 PM Signed I have received a call from the daughter Angelic and she stated her father is in the hospital in [place] where he has had great toe removed [...] Signed Noted. Thank you, Maria Esther Gusman APRN.TECHNICAL ENGINEER Allergies As of Date: 05/20/2020 (No Known [...] TABLET Take 40 mg by mouth once krali* LEVOTHYROXINE 25 MCG TABLET Take 25 mcg [...] Encounter Status:Closed by BREN SANTOS on 05/21/20 [facility] PROGRESSon 05-18-2020 PROGRESS HNO ID: [id number] Author: Ryan Allen Service: ? Author Type: [...] Anxiety and depression - DM (diabetes mellitus) ([facility]) - Dyslipidemia - HTN (hypertension) - Hypothyroidism - PVD (peripheral vascular disease) ([facility]) - Renal mass PAST SURGICAL HISTORY Procedure [...] MG DAILY@0800 October 12, 2019 7:37am 10-12-2019 [facility] ([id number]) - gabapentin (NEURONTIN) 600 mg tablet Take [...] encounter diagnosis) (I73.9) PVD (peripheral vascular disease) ([facility]) (E11.69) Type 2 diabetes mellitus with other specified complication, without long-term current use of insulin ([facility]) (S91.302A) Open wound of left foot with [...] this point. Given the state of the [facility] emergency room at this junction it may be better to have him seen locally at [facility] and see if some antibiotic therapy at least overnight might be worth a try. Possible transfer from there would depend on his stability and the bed availability here at [facility] There are no Patient Instructions on file for this visit. Ryan Allen MD Normal [facility] Bas Metab 1999 Pnl SerPlon 1 07-15-2019 Anion gap [Moles/Vol] 13 mmol/L Normal 9-18 [facility] Comment on above: Order Comment: Speci men Type: BLOOD SPECIMEN Performed By: #### 2 4321-2 #### [facility] CLIA [id number] [address] [place] [address] Calcium [Mass/Vol] 9.8 mg/dL Normal 8.5-10.2 [facility] Comment on above: Order Comment: Speci men Type: BLOOD SPECIMEN Performed By: #### 2 4321-2 #### [facility] CLIA [id number] [address] [place] [address] Chloride [Moles/Vol] 102 mmol/L Normal 97-105 [facility] Comment on above: Order Comment: Speci men Type: BLOOD SPECIMEN Performed By: #### 2 4321-2 #### [facility] CLIA [id number] [address] [place] [address] CO2 [Moles/Vol] 24 mmol/L Normal 22-30 [facility] Comment on above: Order Comment: Speci men Type: BLOOD SPECIMEN Performed By: #### 2 4321-2 #### [facility] CLIA [id number] [address] [place] [address] Creatinine [Mass/Vol] 0.95 mg/dL Normal 0.73-1.22 [facility] Comment on above: Order Comment: Speci men Type: BLOOD SPECIMEN Performed By: #### 2 4321-2 #### [facility] CLIA [id number] [address] [place] [address] GFR/1.73 sq M.predicted MDRD (S/P/Bld) [Vol rate/Area] mL/min/{1.73_m2} Normal [facility] Comment on above: Order Comment: Speci [...] GFR. Performed By: #### 2 4321-2 #### [facility] CLIA [id number] [address] [place] [address] Glucose [Mass/Vol] 214 mg/dL High 74-99 [facility] Comment on above: Order Comment: Speci men Type: BLOOD SPECIMEN Result Comment: The [place] Diabetes Association (ADA) provides guidance for cutoff [...] Standards of Medical Care in Diabetes 2016, [place] [employer] Association. Diabetes Care. 2016.39(Suppl 1). Performed By: #### 2 4321-2 #### [facility] CLIA [id number] [address] [place] [address] Potassium [Moles/Vol] 4.9 mmol/L Normal 3.7-5.1 [facility] Comment on above: Order Comment: Speci men Type: BLOOD SPECIMEN Performed By: #### 2 4321-2 #### [facility] CLIA [id number] [address] [place] [address] Sodium [Moles/Vol] 139 mmol/L Normal 136-144 [facility] Comment on above: Order Comment: Speci men Type: BLOOD SPECIMEN Performed By: #### 2 4321-2 #### [facility] CLIA [id number] [address] [place] [address] Urea nitrogen [Mass/Vol] 31 mg/dL High 9-24 [facility] Comment on above: Order Comment: Speci men Type: BLOOD SPECIMEN Performed By: #### 2 4321-2 #### [facility] CLIA [id number] [address] [place] [address] CBC (hemogram) Bld Autoon Erythrocyte distribution width (RBC) [Ratio] 12.8 % Normal 11.5-15.0 [facility] Comment on above: Order Comment: Speci men Type: BLOOD SPECIMEN Performed By: #### 5 8410-2 #### [facility] CLIA [id number] [address] [place] [address] Hematocrit (Bld) [Volume fraction] 43.5 % Normal 39.0-51.0 [facility] Comment on above: Order Comment: Speci men Type: BLOOD SPECIMEN Performed By: #### 5 8410-2 #### [facility] CLIA [id number] [address] [place] [address] Hemoglobin (Bld) [Mass/Vol] 14.1 g/dL Normal 13.0-17.0 [facility] Comment on above: Order Comment: Speci men Type: BLOOD SPECIMEN Performed By: #### 5 8410-2 #### [facility] CLIA [id number] [address] [place] [address] MCH (RBC) [Entitic mass] 29.5 pg Normal 26.0-34.0 [facility] Comment on above: Order Comment: Speci men Type: BLOOD SPECIMEN Performed By: #### 5 8410-2 #### [facility] CLIA [id number] [address] [place] [address] MCHC (RBC) [Mass/Vol] 32.4 g/dL Normal 30.5-36.0 [facility] Comment on above: Order Comment: Speci men Type: BLOOD SPECIMEN Performed By: #### 5 8410-2 #### [facility] CLIA [id number] [address] [place] [address] MCV (RBC) [Entitic vol] 91.0 fL Normal 80.0-100.0 [facility] Comment on above: Order Comment: Speci men Type: BLOOD SPECIMEN Performed By: #### 5 8410-2 #### [facility] CLIA [id number] [address] [place] [address] Nucleated RBC (Bld) [#/Vol] 10*3/uL Normal <0.01 [facility] Comment on above: Order Comment: Speci men Type: BLOOD SPECIMEN Performed By: #### 5 8410-2 #### [facility] CLIA [id number] [address] [place] [address] Platelet mean volume (Bld) [Entitic vol] 10.4 fL Normal 9.0-12.7 [facility] Comment on above: Order Comment: Speci men Type: BLOOD SPECIMEN Performed By: #### 5 8410-2 #### [facility] CLIA [id number] [address] [place] [address] Platelets (Bld) [#/Vol] 367 10*3/uL Normal 150-400 [facility] Comment on above: Order Comment: Speci men Type: BLOOD SPECIMEN Performed By: #### 5 8410-2 #### [facility] CLIA [id number] [address] [place] [address] RBC (Bld) [#/Vol] 4.78 10*6/uL Normal 4.20-6.00 [facility] Comment on above: Order Comment: Speci men Type: BLOOD SPECIMEN Performed By: #### 5 8410-2 #### [facility] CLIA [id number] [address] [place] [address] WBC (Bld) [#/Vol] 11.87 10*3/uL High 3.70-11.00 [facility] Comment on above: Order Comment: Speci men Type: BLOOD SPECIMEN Performed By: #### 5 8410-2 #### [facility] CLIA [id number] [address] [place] [address] Beau 05-15-2020 JONAS Telephone (AGVASACC) ELIZABETH MODI ([id number]) 1940 M Date Time Provider Department 05/15/20 [...] Allergies) Date Reviewed: 05/15/2020 Reviewed by: Sunshine ([facility]) Kimberly - Fully Assessed Reason for [...] MARIA ESTHER GUSMAN CNP on 05/19/[address] [facility] HGB A1Con 05-15-2020 Average glucose Estimated from glycated hemoglobin mass conc (Bld) 189 mg/dL Normal [facility] Comment on above: Order Comment: Speci men Type: BLOOD SPECIMEN Result Comment: eAG: (Estimated average glucose) is a calculated value from HgbA1c and is enrollment eligibility representative of the average blood glucose level in the last 2-3 month period. Performed By: #### H BA1C ####[facility] [id number] [place] [address] HbA1c (Bld) [Mass fraction] 8.2 % High 4.3-5.6 [facility] Comment on above: Order Comment: Speci men Type: BLOOD SPECIMEN Result Comment: [place] Diabetes Association guidelines indicate that patients with HgbA1c in the range 5.7-6.4% are at increased risk for development of diabetes, and intervention by lifestyle modification may be beneficial. HgbA1c greater or equal to 6.5% is considered diagnostic of diabetes. Performed By: #### H BA1C ####[facility] [id number] [place] [address] HISTORY PHYSICALon 0 HISTORY PHYSICAL HNO ID: [id number] Author: Sunshine Harris Service: ? Author Type: [...] Degree (Hcc) Pvd (Peripheral Vascular Disease) ([facility]) Below Knee Amputation ([facility]) Nonhealing Surgical Wound Subjective CHIEF COMPLAINT: PVD [...] - Hypothyroidism - PVD (peripheral vascular disease) ([facility]) PAST SURGICAL HISTORY Procedure Laterality Date - [...] MG DAILY@0800 October 12, 2019 7:37am 10-12-2019 [facility] ([id number]) Taking Yes gabapentin (NEURONTIN) 600 mg tablet [...] CP and palpitations. No h/o of CHF, SC, Cardiac Sx, cardiac stents, PPM/AICD. +HTN, HLD, [...] managed by PCP. no recent A1C in [facility], most recent BG check from 12/11/2019 was 126. will get A1C at [facility] Former Smoker- quit in 1989, 30 pack [...] COVID, ECG, PT, CBC, BMP ordered in [facility] per surgeon. CONSULTS: No consults pending. Instructions Given to Patient: Patient given verbal and written preop instructions and voices comprehension and compliance. Antimicrobial soap and instructions given to patient. SIGNATURE: Sunshine Harris APRN.CNP PATIENT NAME: [place] Modi DATE: May 13, 2020 TIME: 3:32 PM PAGER/CONTACT #: [facility] PT Pnl PPPon 05-15-2020 INR Coag (PPP) [Relative time] 1.0 {INR} Normal 0.9-1.3 [facility] Comment on above: Order Comment: Speci men Type: BLOOD SPECIMEN Result Comment: Radha min K Antagonist (VKA) Therapeutic Range: INR 2 to 3 (Target INR of 2.5) Note: For patients treated with VKA drugs, such as warfarin, the [place] [employer]icians 2012 Guideline recommends [...] Chest 2012, 141:7S-47S Dada RA, et al. [facility] 2017, 70: 252-289 Performed By: #### 3 4528-0 #### [facility] CLIA [id number] [address] [place] [address] PT Coag (PPP) [Time] 10.6 s Normal 9.7-13.0 [facility] Comment on above: Order Comment: Speci men Type: BLOOD SPECIMEN Performed By: #### 3 4528-0 #### [facility] CLIA [id number] [address] [place] [address] PT EDon 05-13-2020 PT ED HNO ID: [id number] Author: Jeni Izquierdo) KAVIN Shoemaker Service: ? [...] RN In Department: [place] SURGERY OR Normal [facility] PROGRESSon 04-29-2020 PROGRESS HNO ID: [id number] Author: Ryna Allen Service: ? Author Type: Physician Type: Progress Notes Filed: 04/29/2020 7:08 PM Note Text: This note was partially generated using [employer] voice recognition system. I spent 15+ minutes in the visit, with more than 50% of the total bqpo-aj-cvau time of the visit in counseling / coordination of care. This was an office visit for follow-up will be reviewed recent imaging, reevaluated the left foot wound as well as talk to the patient and with his daughter who was on the telephone during the office visit during the Covde restrictions. CT scan that it been done [...] patient is currently taking aspirin: Yes Normal [facility] CNOVon 04-28-2020 CN Office Visit (AGVASACC) ELIZABETH MODI ([id number]) 1940 M Date Time Provider Department 04/28/20 11:00 AM RYAN ALLEN During your visit today, we recorded the following information about you: Temperature Blood pressure Weight Height 80 degrees 134/60 88 kg 1.778 m Ryan Allen MD 04/29/2020 7:08 PM Signed This note was partially generated using [employer] voice recognition system. I spent 15+ minutes in the visit, with more than 50% of the total jzzu-sd-zvfg time of the visit in counseling / coordination of care. This was an office visit for follow-up will be reviewed recent imaging, reevaluated the left foot wound as well as talk to the patient and with his daughter who was on the telephone during the office visit during the restrictions. CT scan that it been done [...] Allergies) Date Reviewed: 04/28/2020 Reviewed by: Luke (Marv) Austin - Fully Assessed Reason for Visit: Follow Up [171] Cmt: PVD. 02/28/20 CTA aorta with runoffs Primary Visit Diagnosis:PVD (peripheral vascular disease) ([facility]) [I73.9] Other Visit Diagnoses:Nonhealing nonsurgical wound [T14.8XXA] [...] (HCC) [E44.0] 08/22/2019 PVD (peripheral vascular disease) ([facility]) [I73.9] 12/07/2019 Below knee amputation ([facility]) [S88.119A] 12/07/2019 Nonhealing surgical wound [T81.89XA] 12/09/2019 Disposition: Return in about 4 weeks (around 05/26/2020). Follow-up and Disposition History Recorded Letter Text Encounter Status:Closed by [facility]AN ALLEN [facility] GURWINDERN Telephone (LUCRECIA) ELIZABETH MODI ([id number]) 1940 M Date Time Provider Department 04/28/20 RYAN ALLEN During your visit today, we recorded the following information about you: Maria Esther Gusman APRN.GURWINDER BECERRA 04/28/2020 1:53 PM Signed Orders signed. Thank you, Maria Esther Gusman APRN.GURWINDER Santos 04/30/2020 2:25 PM Addendum I have scheduled the patient for a Left Leg Aortogram with runoffs, possible intervention possible left arm approach on 05/25/20 @ 1030am with an 830 am arrival time. Pretesting is on 05/15/20 @ 1120am [facility]- no fasting is required Covid is 05/23/20 @ 1130 am at [facility] Post OP is 06/23/20 @ 10 am with Netzley Mailed 04/30/20 preetijovanny Lambert has been notified of dates and times. Allergies As of Date: 04/28/2020 (No Known Allergies) Date Reviewed: 04/28/2020 Reviewed by: Luke Alfaro) Austin - Fully Assessed Reason for Visit: Schedule Surgery [1330] Primary Visit Diagnosis:PVD (peripheral vascular disease) (HCC) [I73.9] Order(s):SURGICAL REQUEST - ELECTIVE (01/2020) [7454900] Order #: [id number]: 1 HANDP FOR SURGERY [X8136ORO] Order #: [id number] PRE-PROCEDURE AND PRE-OPERATIVE COVID [SQPOCOVD] Order #: [id number] FUTURE CBC [SQCBC] Order #: [id number] FUTURE BASIC METABOLIC PNL [SQBMP] Order #: [id number] FUTURE PROTHROMBIN TIME/PT [SQPT] Order #: [id number] FUTURE ECG COMPLETE [ECG01] Order #: [id number] FUTURE Prescriptions as of 04/28/2020 Sig: ASPIRIN [...] by MARIA ESTHER GUSMAN CNP on 04/28/20 [facility] CNOVon 04-21-2020 CNOV Office Visit (AKURFL ) ELIZABETH MODI ([id number]) 1940 M Date Time Provider Department 04/21/20 1:30 PM YADI WHITE During your visit today, we recorded the following information about you: Weight Height 88 kg 1.778 m Yadi White DO, MBA 04/21/2020 3:13 PM Signed ?? [facility] LOCATION: [address] [place] [address] NEW CONSULT VISIT PATIENT INFO: [place] Modi [...] MG DAILY@0800 October 12, 2019 7:37am 10-12-2019 [facility] ([id number]) gabapentin (NEURONTIN) 600 mg tablet Take 600 [...] with more than 50% of the total zubb-nh-pljk time of the visit in counseling / coordination of care. Yadi White DO MBA Letter to: Dexter Reyes MD Referring Provider: DEXTER REYES CHI [[id number]] Allergies As of Date: 04/21/2020 (No Known Allergies) Date Reviewed: 04/21/2020 Reviewed by: Yadi White - Fully Assessed Reason for Visit: Kidney Problem [61] Visit Diagnosis:Other specified disorders of kidney and ureter [N28.89] Order(s):CT KIDNEY WO/W IVCON [0666098] Order #: [id number] FUTURE iv contrast (will be provided with [...] Encounter Status:Closed by YADI WHITE on 04/21/20 [facility] PROGRESSon 04-21-2020 PROGRESS HNO ID: [id number] Author: Yadi White Service: ? Author Type: Physician Type: Progress Notes Filed: 04/21/2020 3:13 PM Note Text: ?? [facility] LOCATION: [address] [place] [address] NEW CONSULT VISIT PATIENT INFO: [place] Modi [...] MG DAILY@0800 October 12, 2019 7:37am 10-12-2019 [facility] ([id number]) gabapentin (NEURONTIN) 600 mg tablet Take 600 [...] with more than 50% of the total qzva-gs-xgts time of the visit in counseling / coordination of care. Yadi White DO MBA Letter to: Dexter Reyes MD [facility] CNOVon 03-31-2020 CNOV Office Visit (AGVASACC) ELIZABETH MODI ([id number]) 1940 M Date Time Provider Department 03/31/20 11:00 AM RYAN ALLEN During your visit today, we recorded the following information about you: Pulse Respiration Blood pressure Weight 78/minute 18/minute 124/70 88 kg Height 1.778 m Ryan Allen MD 03/31/2020 12:50 PM Signed I spent 15+ minutes in the visit, with more than 50% of+ the total enxa-zj-umox time of the visit in counseling / coordination of care. This note partially generated using [employer] voice recognition system. Mr. Modi and his daughter were seen in the office today for follow-up of his peripheral vascular disease. He's feeling up a complicated wound in the right below-knee stump but also has a left great toe nonhealing wound. I believe this is being followed by the frame welder cargo utility trailers or the wound care center in the [facility]. He also notes that the prosthetic company is having trouble getting appropriate authorization for his prosthesis. Since the patient left I have call that office, [facility] [employer]. We have left a message from then [...] appropriate authorization for were reviewed needs from [employer]. He has had a urologist in the past but can't remember the name in the [facility]. I would refer to the primary care office if they feel appropriate urologist is available locally in this patient. If not we will be happy to refer to a urologist in the [facility]. Hopefully within the next few weeks [...] runoffs Primary Visit Diagnosis:PVD (peripheral vascular disease) ([facility]) [I73.9] Other Visit Diagnoses:Below knee amputation ([facility]) [S88.119A] Type 2 diabetes mellitus with other specified complication, without long-term current use of insulin ([facility]) [E11.69] Nonhealing nonsurgical wound [T14.8XXA] Prescriptions as [...] Date 03/31/2020 Noted Resolved Gangrene of foot (HCC) [I96] 08/21/2019 Diabetes (HCC) [E11.9] 08/21/2019 HTN (hypertension) [I10] 08/21/2019 Dyslipidemia [E78.5] 08/21/2019 Hypothyroidism [E03.9] 08/21/2019 Malnutrition of moderate degree (HCC) [E44.0] 08/22/2019 PVD (peripheral vascular disease) ([facility]) [I73.9] 12/07/2019 Below knee amputation ([facility]) [S88.119A] 12/07/2019 Nonhealing surgical wound [T81.89XA] 12/09/2019 Letter Text Encounter Status:Closed by RYAN ALLEN MD on 03/31/[address] [facility] PROGRESSon 03-31-2020 PROGRESS HNO ID: [id number] Author: Ryan Allen Service: ? Author Type: Physician Type: Progress Notes Filed: 03/31/2020 12:50 PM Note Text: I spent 15+ minutes in the visit, with more than 50% of+ the total geyd-st-pojy time of the visit in counseling / coordination of care. This note partially generated using [employer]vin[employer] voice recognition system. Mr. Modi and his daughter were seen in the office today for follow-up of his peripheral vascular disease. He's feeling up a complicated wound in the right below-knee stump but also has a left great toe nonhealing wound. I believe this is being followed by the frame welder cargo utility trailers or the wound care center in the [facility]. He also notes that the prosthetic company is having trouble getting appropriate authorization for his prosthesis. Since the patient left I have call that office, [facility] [employer]. We have left a message from then [...] appropriate authorization for were reviewed needs from [employer]. He has had a urologist in the past but can't remember the name in the [facility]. I would refer to the primary care office if they feel appropriate urologist is available locally in this patient. If not we will be happy to refer to a urologist in the [facility]. Hopefully within the next few weeks [...] is taking statin and aspirin medications. Normal [facility] CNPNon 03-04-2020 GURWINDERN Telephone (AGVASACC) ELIZABETH MODI ([id number]) 1940 M Date Time Provider Department 03/04/20 RYAN ALLENBLAIRACC During your visit today, we recorded the [...] Encounter Status:Closed by LUDIVINA WHITFIELD on 03/04/[address] [facility] CTA ABD/PEL/LOWER EXT WO/W I VCONon 02-28-2020 CTA ABD/PEL/LOWER EXT WO/W IVCON Final Report DATE OF EXAM: Feb 28 2020 4:00PM [facility] 0465 - CTA ABD/PEL/LOWER EXT WO/W IVCON [...] renal protocol CT or MRI. 2. Right brzjg-fyu-qxvk amputation. No subcutaneous fat stranding or fluid collection. Other chronic findings, as above. Maintainer Central Office: ONEL Transcribe Date/Time: Mar 02 2020 2:59P Dictated by : ANDRE BUI MD This examination was interpreted and the report reviewed and electronically signed by: ANDRE BUI MD on Mar 02 2020 3:31PM EST Normal [facility] CNOVon 02-13-2020 CNOV Office Visit (AGVASACC) MODIELIZABETH ([id number]) 1940 M Date Time Provider Department 02/13/20 1:30 PM MARIA ESTHER GUSMAN (SENIOR CONSUMER INSIGHTS CONSULTANT, TECHNICAL ENGINEER)LUCRECIA During your visit today, we recorded the following information about you: Pulse Respiration Blood pressure Weight 76/minute 18/minute 118/64 88 kg Height 1.778 m Maria Esther Gusman APRN.TECHNICAL ENGINEER, TECHNICAL ENGINEER 02/13/2020 4:20 PM Signed Elizabeth Modi 79 [...] He has not been in contact with [employer] in some time, as he was advised to wait until cleared from the wound vac. Additionally, he reports that he's been seeing a dental billing specialist for the wounds on his left [...] Stable post op; OK [facility]; Will discuss with Dr. Allen plan for evaluation/treatment of LLE with continued wounds. PLAN: Will proceed with CTA to further evaluation LLE at this time. Pt encouraged to call with any questions, problems, concerns, or changes. The patient is currently taking a statin: Yes The patient is currently taking aspirin: Yes Maria Esther Gusman, LUZ ELENA.TECHNICAL ENGINEER Referring Provider: SELF [200] Allergies As of [...] [I99.8] Order(s):CTA ABD/PEL LOWER EXTREM WO/W IVCON [[id number]] Order #: [id number] FUTURE iv contrast (will be provided with [...] EachRfl: 0 CREATININE BLD [SQCRET] Order #: [id number] FUTURE Prescriptions as of 02/13/2020 Sig: INSULIN [...] by MARIA ESTHER GUSMAN CNP on 02/13/20 [facility] PROGRESSon 02-13-2020 PROGRESS HNO ID: [id number] Author: Maria Esther (Inseminator Dust Box Tender) GURWINDER Gusman Service: ? Author Type: Nurse [...] He has not been in contact with [employer] in some time, as he was advised to wait until cleared from the wound vac. Additionally, he reports that he's been seeing a dental billing specialist for the wounds on his left [...] Stable post op; OK to follow-up with [employer] for RLE prosthetic; Will discuss with Dr. Allen plan for evaluation/treatment of LLE with continued wounds. PLAN: Will proceed with CTA to further evaluation LLE at this time. Pt encouraged to call with any questions, problems, concerns, or changes. The patient is currently taking a statin: Yes The patient is currently taking aspirin: Yes Maria Esther Gusman APRN.[facility]2020 JONAS Telephone (LUCRECIA) ELIZABETH MODI ([id number]) 1940 M Date Time Provider Department 02/05/20 RYAN ALLEN During your visit today, we recorded the following information about you: Luke Pérez LPN 02/05/2020 10:51 AM Signed Millie from [facility] called stating that there has been no [...] 02/05/2020 11:24 AM Signed Relayed information to [facility] nurse. Acknowledged new order for wet to [...] Status:Closed by LUKE PÉREZ LPN on 02/05/20 [facility] Radha 01-08-2020 CNOV Office Visit (AGVASACC) ELIZABETH MODI ([id number]) 1940 M Date Time Provider Department 01/08/20 3:30 PM RYAN ALLEN During your visit today, we recorded the following information about you: Pulse Respiration Blood pressure Weight 78/minute 18/minute 126/70 88.9 kg Height 1.778 m Ryan Allen MD 01/08/2020 4:01 PM Signed This note was partially generated using Arvinas voice recognition system. Is a postop visit [...] (PVD) [3545] Cmt: Elizabeth is post op 12/09/19 I AND D Rt BKA wound with placement of wound vac Reason For Visit History Recorded Primary Visit Diagnosis:Below knee amputation (HCC) [S88.119A] Other Visit Diagnosis:PVD (peripheral vascular disease) ([facility]) [I73.9] Prescriptions as of 01/08/2020 Sig: INSULIN [...] Status:Closed by RYAN ALLEN MD on 01/08/20 [facility] CNPYessenia 01-08-2020 CNPN Telephone (AGVASACC) ELIZABETH MODI ([id number]) 1940 M Date Time Provider Department 01/08/20 RYAN ALLEN During your visit today, we recorded the following information about you: Luke Pérez LPN 01/08/2020 1:18 PM Signed Millie [facility] nurse called to let us know that they are extending the home care to once a week x 5 weeks. Still currently has wound vac. Drainage and blood noted per nurse. Depth of 0.25mm. Maria Esther Gusman APRN.GURWINDER BECERRA 01/08/2020 1:42 PM Signed Noted. Thank you, Maria Esther Gusman APRN.TECHNICAL ENGINEER Allergies As of Date: 01/08/2020 (No Known [...] by MARIA ESTHER GUSMAN CNP on 01/08/[address] [facility] PROGRESSon 01-08-2020 PROGRESS HNO ID: [id number] Author: Ryan Allen Service: ? Author Type: Physician Type: Progress Notes Filed: 01/08/2020 4:01 PM Note Text: This note was partially generated using Arvinas voice recognition system. Is a postop visit [...] he continues to make progress with wound. Normal [facility] CASE MANAGEMon 12-11-2019 CASE MANAGEM HNO ID: [id number] Author: Tami Izquierdo) KAVIN Patricio Service: Care Management Author Type: Registered Nurse Type: Care Mgt Progress Note Filed: 12/11/2019 3:28 PM Note Text: CARE MANAGEMENT DISCHARGE NOTE SERVICE DATE: 12/11/2019 SERVICE TIME: 3:27 PM LOS: 2 days Admission Date: 12/09/2019 DISCHARGE ARRANGEMENT (list agency and phone number) Discharge Arrangement: Home Group Home Care: Nursing;OT;PT Provider Name: [facility] Phone: . CAREGIVER ASSESSMENT: Caregiver is ready, willing and able to meet the patient's needs as recommended by the inter-professional team:: Yes Does the patient have an acute stroke diagnosis, or has the patient had a stroke during this admission?: No Patient's transition needs and plan for meeting these needs: Home with [facility]. HANDOFF COMMUNICATION: TRANSPORTATION ARRANGEMENTS: Transportation Arrangements: Car ADDITIONAL CONTACT RESOURCES: Pts wound vac approved through [facility]. SIGNATURE: Tami Patricio RN PATIENT NAME: Elizabeth Modi DATE: December 11, 2019 TIME: 3:27 PM PAGER/CONTACT #: [phone] [facility] CONSULT PROGon 12-11-2019 CONSULT PROG HNO ID: [id number] Author: Adali Murry Service: Wound Care Team Author Type: Nurse Specialist Type: Consult Progress Note Filed: 12/11/2019 2:39 PM Note Text: WOUND CARE CONSULT SENIOR CONSUMER INSIGHTS CONSULTANT NOTE SERVICE DATE: 12/11/2019 SERVICE TIME: 1315 TIME SPENT (minutes): 45 REASON FOR CONSULT: Eval R BKA, wound vac change CHIEF COMPLAINT: c/o open wound to R lateral BKA Subjective HISTORY OF PRESENT ILLNESS: Mr. Modi is a 79 year old male who is seen today with S Gasper Wound/investigations director, and presented to hospital w/ R BKA [...] found under the Get Images tab on [employer]. Photos are uploaded by the wound caretaker resort and may not be immediately available for viewing. Contact the wound and ostomy care department with questions. SIGNATURE: Adali Murry APRN.CNS PATIENT NAME: Elizabeth Modi DATE: December 11, 2019 TIME: 2:24 PM CONTACT#: [id number] [facility] Glucose Meteron 12-11-2019 Glucose [Mass/Vol] 126 mg/dL High 70-99 [facility] Comment on above: Result Comment: KAVIN Briones OTIFIED Performed By: #### M AG #### [place] [address] OPERATIVE NOon 12-11-2019 OPERATIVE NO HNO ID: [id number] Author: Ryan Allen Service: ? Author Type: Physician Type: Operative Report Filed: 12/11/2019 1:51 PM Note Text: [facility] - Operative Report ELIZABETH MODI : 1940 AGE: 79. SEX: M PATIENT TYPE: I HOSP SVC: KEENAN LOCATION: [id number] ATTENDING PHYSICIAN: RYAN ALLEN CSN NUMBER: [id number] DATE OF SURGERY/PROCEDURE: 12/09/2019 INCISION/PROCEDURE START TIME: 10:54 AM INCISION CLOSE/PROCEDURE END TIME: 11:10 AM PREOPERATIVE DIAGNOSIS: Nonhealing wound, status post right below-knee amputation. POSTOPERATIVE DIAGNOSIS: Nonhealing wound, status post right below-knee amputation. SURGEON: Ryan Allen MD, FACS QUALITY ASSURANCE SPECIALIST: 1. Sunny Brito MD. 2. Mara Godinez SA. SURGERY/PROCEDURE: Irrigation and debridement of right lower extremity wound with placement of wound VAC. ANESTHESIA: General HISTORY: This is a 79-year-old gentleman, who has undergone multiple procedures with the Vascular Service at [facility]. Ultimately, unfortunately this has terminated in a below-knee amputation. In his followup, he was seen at the [facility] office in [place] by Dr. Gordo Figueroa and it was [...] satisfactory postoperative condition. Ryan Allen MD, FACS RGN:[id number] /[id number] cc:Macho Reyes MD [facility] PLAN OF CAREon 12-11-2019 PLAN OF CARE HNO ID: [id number] Author: Olga SantiagoSorting Supervisor) Service: ? Author Type: ? Type: Plan of Care Filed: 12/11/2019 11:33 AM Note Text: SENIOR APPLICATIONS ARCHITECT BEDSIDE DELIVERY SURVEY 1. Patient to use [facility] Bedside Delivery - YES Insurance Information as follows: 2. Insurance card on file - YES 3. Credit card for payment - N/A Please call pharmacy bedside delivery at [phone] or [phone] if patient would like medications filled and delivered prior to discharge. Olag Parekh (Sorting Supervisor) [facility] PROGRESSon 12-11-2019 PROGRESS HNO ID: [id number] Author: Rohan Duran DO Service: Vascular Surgery [...] questions or concerns Mon-Fri 6a-5p please page [phone]. After 5pm and on Weekends and Holidays, please page [phone] if in ICU or [phone] if on RNF. Subjective SUBJECTIVE: NAEON. Did [...] Room Air IANDO: Date 12/10/19 07 - 12/11/1965812/11/19699 - 12/12/19 0659 Shift 5763-0638 0444-2002 5492-9377 24 Hour Total 6288-7403 2459-0239 2460-2820 24 Hour Total INTAKE Shift Total OUTPUT Urine 929 046 2770 Void (ml) 057 328 9884 Drains 0 0 Negative Pressure: Output (mL) 0 0 # of BMs Number of BMs 1 x 1 x Shift Total 615 462 1177 Weight (kg) 88.2 88.2 88.2 88.2 88.2 [...] ICU or 2174 if on [address]. [address] [facility] PT EDon 12-11-2019 PT ED HNO ID: [id number] Author: Isac Navarro (Pharmacist) Service: Pharmacy Author [...] Cap Generic drug: Cholecalciferol (Vitamin D3) Normal [facility] THERAPY NTon 12-11-2019 THERAPY NT HNO ID: [id number] Author: Maricarmen SantiagoOtr/Serene) Florentino Service: Occupational Therapy Author Type: Occupational Therapist Type: Therapy (PT/OT/Speech/Resp) Filed: 12/11/2019 3:31 PM Note Text: Occupational Therapy Evaluation SERVICE DATE: 12/11/2019 SERVICE TIME: 1435 to 1459 ROOM: [id number] Recommended Discharge Disposition: Home OT Recommended Discharge [...] living (ADL) Interventions Provided: Evaluation $ Evaluation-Moderate (62988) Billed Units: 1 unit OT Evaluation Moderate [...] details for this therapy evaluation/treatment. SIGNATURE: NADIR Hopper/L PATIENT NAME: Elizabeth Modi DATE: December 11, 2019 TIME: 3:[address] [facility] THERAPY NT HNO ID: [id number] Author: Marilyn SantiagoPtSmitha Flores Service: Physical Therapy Author Type: Physical Therapist Type: Therapy (PT/OT/Speech/Resp) Filed: 12/11/2019 2:48 PM Note Text: Physical Therapy Evaluation SERVICE DATE: 12/11/2019 SERVICE TIME: 1341 to 1408 ROOM: [place] [address] Recommended Discharge Disposition: Home PT Recommended Discharge [...] Difficulty walking-musculoskeleta l Interventions Provided: Evaluation;Therapeutic Activity (96588) $ Evaluation-Moderate (57517) Billed Units: 1 unit History and examination of body systems see assessment section above. This patient?s clinical presentation is evolving. The patient required a moderate complexity evaluation. Therapeutic Activity (15381) Treatment Minutes: 11 1 unit Skilled Intervention(s): [...] December 11, 2019 TIME: 2:[address] [facility] Basic Metabolic Panelon 11-18 Anion gap [Moles/Vol] 13 mmol/L Normal 9-18 [facility] Comment on above: Performed By: #### C BC1 #### [facility] [address], [place] [address] Calcium [Mass/Vol] 9.0 mg/dL Normal 8.5-10.2 [facility] Comment on above: Performed By: #### C BC1 #### [facility] [address], [place] [address] Chloride [Moles/Vol] 100 mmol/L Normal 97-105 [facility] Comment on above: Performed By: #### C BC1 #### [facility] [address], [place] [address] CO2 Blood 25 mmol/L Normal 22-30 [facility] Comment on above: Performed By: #### C BC1 #### [facility] [address], [place] [address] Creatinine [Mass/Vol] 1.14 mg/dL Normal 0.73-1.22 [facility] Comment on above: Performed By: #### C BC1 #### [facility] [address], [place] [address] Glucose [Mass/Vol] 113 mg/dL High 74-99 [facility] Comment on above: Result Comment: The [place] Diabetes Association (ADA) provides guidance for cutoff [...] Standards of Medical Care in Diabetes 2016; [place] [employer] Association. Diabetes Care. 2016;39(Suppl 1). Performed By: #### C BC1 #### [facility] [address], [place] [address] Potassium [Moles/Vol] 4.1 mmol/L Normal 3.7-5.1 [facility] Comment on above: Performed By: #### C BC1 #### [facility] [address], [place] [address] Sodium [Moles/Vol] 138 mmol/L Normal 136-144 [facility] Comment on above: Performed By: #### C BC1 #### [facility] [address], [place] [address] Urea nitrogen [Mass/Vol] 22 mg/dL Normal 9-24 [facility] Comment on above: Performed By: #### C BC1 #### 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 Last discharge within 30 days: No Advance Directive: Current Advance Directive: Health Care Power of Maple Syrup Maker In Chart: No Motor Coach Bus Driver Attempted to Assist with AD Completion: No [...] Services or Home Care?: Home Health Care Agency([employer]) Equipment Prior to Admission: Wheelchair;Other: See Comment(Electric [...] meeting these needs: Home with family and c. Patient's perception of need for this admission: . Medication Adherance I am convinced of the importance of my prescription medication: 0 - Agree Mostly I worry that my prescription medication will do more harm than good to me : 0 - Disagree Mostly I feel financially burdened by my obd-rp-gwefox expenses for my prescription medication:: 0 - Disagree Somewhat Risk Score: 0 Patient is categorized as: Low risk < 2 Are you interested in bedside delivery of your medications? No Is Patient Psychosocially Complex?: No ASSESSMENT AND PLAN: Medical Needs: Medical Needs: Two or more chronic diseases Psychosocial Needs: Psychosocial Needs: None FREEDOM OF CHOICE EXPLAINED: [place] of Choice Given: Yes(Pt would like to resume hhc with [facility].) POTENTIAL TRANSITION PLANS Home Care Spoke with pt at the bedside. Pt states that he has been staying with his daughter. Active with [facility]. Plan for pt to return home with [facility]. Pt will need wound vac at d/c- script placed on chart to be signed. Family to transport home when medically stable. Will follow. SIGNATURE: Tami Patricio RN PATIENT NAME: Elizabeth Modi DATE: December 10, 2019 TIME: 10:47 AM PAGER/CONTACT #: [phone] [facility] Hemogramon 12-10-2019 Erythrocyte distribution width (RBC) [Ratio] 14.1 % Normal 11.6-14.4 [facility] Comment on above: Performed By: #### P 8 #### [facility] [address] [place] [address] Hematocrit (Bld) [Volume fraction] 38.9 % Low 40.1-51.0 [facility] Comment on above: Performed By: #### P 8 #### [facility] [address] [place] [address] Hemoglobin (Bld) [Mass/Vol] 12.3 g/dL Low 13.7-17.5 [facility] Comment on above: Performed By: #### P 8 #### [facility] [address] [place] [address] MCH (RBC) [Entitic mass] 27.8 pg Normal 25.7-32.2 [facility] Comment on above: Performed By: #### P 8 #### [facility] [address] [place] [address] MCHC (RBC) [Mass/Vol] 31.6 % Low 32.3-36.5 [facility] Comment on above: Performed By: #### P 8 #### [facility] [address] [place] [address] MCV (RBC) [Entitic vol] 88.0 fL Normal 83.2-95.6 [facility] Comment on above: Performed By: #### P 8 #### [facility] [address] [place] [address] Platelet mean volume (Bld) [Entitic vol] 10.5 fL Normal 8.7-12.0 [facility] Comment on above: Performed By: #### P 8 #### [facility] [address] [place] [id number] Platelets (Bld) [#/Vol] 285 thou/cmm Normal 141-365 [facility] Comment on above: Performed By: #### P 8 #### [facility] [address], [place] [address] RBC (Bld) [#/Vol] 4.42 mil/cmm Low 4.63-6.08 [facility] Comment on above: Performed By: #### P 8 #### [facility] [address], [place] [address] RDW SD 45.4 fl Normal 36.1-45.8 [facility] Comment on above: Performed By: #### P 8 #### [facility] [address], [place] [address] WBC (Bld) [#/Vol] 9.86 thou/cmm High 4.23-9.07 [facility] Comment on above: Performed By: #### P 8 #### [facility] [address], [place] [address] MDRD GFRon 12-10-2019 GFR/1.73 sq M predicted among non-blacks MDRD (S/P/Bld) [Vol rate/Area] mL/min/{1.73_m2} Normal >60mL/min/1 .73m2 [facility] Comment on above: Result Comment: If t he patient is , multiply the result by 1.210. Performed By: #### M AG #### [facility] [address], [place] [address] PLAN OF CAREon 12-10-2019 PLAN OF CARE HNO ID: [id number] Author: Isac Navarro (Pharmacist) Service: Pharmacy Author [...] medication history: Yes Reconciliation completed? Yes All OPERATIONS TECHNICIAN medications addressed by LIP Additional comments: ? Spoke with patient's daughter and reviewed dispensing data of [facility] ? Patient receives all acute meds from [facility]; gets some maintenance meds from [facility] by mail ? Patient has been hospitalized for an extended period this spring, skewing refill data ? Has recently begun using Humalog--discontinued most oral hypoglycemics at that time (see below). Continues using metformin ? Augmentin-875 begun 12-04-2019. This is/was a 14-day course of therapy ? Patient is ordered to use KCl 20mEq BID but has only been using this once daily OPERATIONS TECHNICIAN Paged Gen Surgery (2123) about these findings Cpqhu-tn-Fefhlxidd Medication List Adjustments: Medication Regimen Changes: Gabapentin [...] ALLERGIES No Known Allergies Preferred Pharmacy: [facility] Current OPERATIONS TECHNICIAN Medications: Prior to Admission medications as of [...] PHARMACIST December 10, 2019 2:[address] [facility] PROGRESSon 12-10-2019 PROGRESS HNO ID: [id number] Author: Rohan Duran DO Service: Vascular Surgery [...] questions or concerns Mon-Fri 6a-5p please page [phone]. After 5pm and on Weekends and Holidays, please page [phone] if in ICU or [phone] if on RNF. Subjective SUBJECTIVE: NAEON. Tolerating [...] Air IANDO: Date 12/09/19 07 - 12/10/19 0659 12/10/19 07 - 12/11/19 0659 Shift 4095-6062 5199-2993 3205-3458 24 Hour Total 7511-7163 8639-3262 3411-6924 24 Hour Total INTAKE IV 400 400 OR Crystalloid intake (mL) 300 300 Volume (mL) (lactated ringers infusion) 100 100 Shift Total 400 400 OUTPUT Urine 886 342 9157 Void (ml) 555 393 4458 Shift Total 568 291 5483 Weight (kg) 88.2 88.2 88.2 88.2 88.2 [...] in ICU or 2174 if on RNF. [facility] ANES [place] 12-09-2019 ANES POST HNO ID: [id number] Author: Sal Ochoa Service: Anesthesiology Author Type: [...] 09, 2019 TIME: 11:41 AM PAGER/CONTACT #: [facility] ANES PREOPon 12-09-2019 ANES PREOP HNO ID: [id number] Author: Sal Ochoa Service: Anesthesiology Author Type: [...] File Prior to Encounter Medication Sig - xsvgg-6f-ssk-epa-fish oil-D3 667-250 mg-unit cap Take 1 tablet [...] lactated ringers infusion 5-30 mL/hr INTRAVENOUS CONTINUOUS yRan Allen - ceFAZolin iv piggyback 2 g [...] December 09, 2019 TIME: 9:05 AM CSN: [id number] [facility] BRIEF OP NOTon 12-09-2019 BRIEF OP NOT HNO ID: [id number] Author: Sunny Brito Service: Vascular Surgery Author [...] BRIEF OPERATIVE / PROCEDURE NOTE LOG ID: [id number] SURGERY/PROCEDURE DATE: 12/09/2019 INCISION/PROCEDURE START TIME: 10:54 AM INCISION CLOSE/PROCEDURE END TIME: 11:10 AM SURGEON(S)/PROCEDURALI ST(S) AND QUALITY ASSURANCE SPECIALIST(S): Surgeon(s) and Role: * Ryan Allen - Primary * Sunny Brito - Resident - Assisting Porcelain Enameling Supervisor: Mara Godinez SA SURGERY/PROCEDURE(S): irrigation and debridement right lower extremity wound, placement of wound vac ANESTHESIA: General FINDINGS: draining right lower extremity wound ESTIMATED BLOOD LOSS: 2 mls SPECIMENS: debrided tissue COMPLICATIONS: None PRE-OP/PRE-PROCEDURE DIAGNOSIS: right lower extremity wound POST-OP/POST-PROCEDURE DIAGNOSIS: Same as Preop SIGNATURE: Sunny Brito MD PATIENT NAME: Elizabeth Modi DATE: December 09, 2019 TIME: 11:45 AM PAGER/CONTACT #: Normal [facility] Cult and Smr CAROLINE and AERon 0 12-09-2019 Cult and Smr CAROLINE and AER Test performed at [facility] Moderate Mixed skin javier. No anaerobic organisms cultured Few Gram positive cocci Few Polymorphonuclear leukocytes Normal [facility] Comment on above: Performed By: #### P 8 #### [facility] [address] [place] [id number] HISTORY PHYSICALon 0 HISTORY PHYSICAL HNO ID: [id number] Author: Sunny (Cassia Brito Service: Vascular Surgery [...] , Rfl: , 12/08/2019 at Unknown time zqaea-0a-tap-epa-fish oil-D3 667-250 mg-unit cap, Take 1 tablet [...] 2019 TIME: 10:14 AM PAGER/CONTACT #: [phone] [facility] NURSING PROGon 12-09-2019 NURSING PROG HNO ID: [id number] Author: Dakota (Rn) KAVIN Rodriguez Service: ? Author Type: Registered Nurse Type: Nursing Progress Note Filed: 12/09/2019 12:59 PM Note Text: FBG done by Belkis VALE [facility] PROGRESSon 12-07-2019 PROGRESS HNO ID: [id number] Author: Gordo Figueroa Service: ? Author Type: [...] Outpatient Medications Medication Sig Dispense Refill - yaxyx-5c-zur-epa-fish oil-D3 667-250 mg-unit cap Take 1 tablet [...] up with us next Monday at the [place] facility. [facility] Office Visit (AGMIL) ELIZABETH MODI ([id number]) 1940 M Date Time Provider Department 12/06/19 [...] Outpatient Medications Medication Sig Dispense Refill - dkkhk-1t-smy-epa-fish oil-D3 667-250 mg-unit cap Take 1 tablet [...] up with us next Monday at the [place] facility. Gordo Figueroa MD Referring Provider: SELF [200] Allergies As of Date: 12/06/2019 (No Known Allergies) Date Reviewed: 12/06/2019 Reviewed by: Ryan Allen - Fully Assessed Reason for Visit: Peripheral Vascular Disease (PVD) [3545] Cmt: Elizabeth is post op 09/05/19 Revision Rt BKA Primary Visit Diagnosis:PVD (peripheral vascular disease) ([facility]) [I73.9] Other Visit Diagnosis:Below knee amputation ([facility]) [S88.119A] Prescriptions as of 12/06/2019 Sig: OMEGA-3S 667 RK-ONR-AZT-FISH * Take 1 tablet by mouth once [...] Status:Closed by GORDO FIGUEROA MD on 12/07/19 [facility] Beau 12-06-2019 [place] Telephone (ActivIdentity) ELIZABETH MODI ([id number]) 1940 M Date Time Provider Department 12/06/19 RYAN ALLEN During your visit today, we recorded the following information about you: Allergies As of Date: 12/06/2019 (No Known Allergies) Date Reviewed: 12/06/2019 Reviewed by: Gordo Figueroa - Fully Assessed Reason for Visit: Schedule Surgery [1330] Primary Visit Diagnosis:PVD (peripheral vascular disease) ([facility]) [I73.9] Order(s):SURGICAL REQUEST - ELECTIVE [6494169] Order #: [id number]: 1 HANDP FOR SURGERY [[id number]] Order #: [id number] PRE-PROCEDURE AND PRE-OPERATIVE COVID [SQPOCOVD] Order #: [id number] FUTURE CBC [SQCBC] Order #: [id number] FUTURE BASIC METABOLIC PNL [SQBMP] Order #: [id number] FUTURE PROTHROMBIN TIME/PT [SQPT] Order #: [id number] FUTURE Prescriptions as of 12/06/2019 Sig: OMEGA-3S 667 BV-XQJ-JAY-FISH * Take 1 tablet by mouth once [...] Status:Closed by RYAN ALLEN MD on 12/06/19 [facility] HOSPon 12-06-2019 HOSP Patient:Elizabeth Modi MRN: Height:5' 10"(1.778 m) Weight:186 lb (84.369 kg) Outpatient Medications as of 12/09/19: huggo-0l-rvw-epa-fish oil-D3 667-250 mg-unit cap zinc sulfate (ORAZINC [...] the following basenames: K,HCT Progress Notes ([facility]): Gordo Figueroa MD 12/07/2019 10:39 AM Signed [...] Outpatient Medications Medication Sig Dispense Refill - citnu-3d-ofe-epa-fish oil-D3 667-250 mg-unit cap Take 1 tablet [...] up with us next Monday at the [facility]. Gordo Figueroa MD [facility] CASE MANAGEMon 09-11-2019 CASE MANAGEM HNO ID: [id number] Author: Tiffanie (Rn) KAVIN Travis Service: Care Management Author Type: Registered Nurse Type: Care Mgt Progress Note Filed: 09/11/2019 12:54 PM Note Text: CARE MANAGEMENT DISCHARGE NOTE SERVICE DATE: 09/11/2019 SERVICE TIME: 12:42 PM LOS: 21 days Admission Date: 08/21/2019 DISCHARGE ARRANGEMENT (list agency and phone number) Discharge Arrangement: assisted facility Was an expedited discharge program used?: No Provider Name: [facility] CAREGIVER ASSESSMENT: HANDOFF COMMUNICATION: Handoff to: Primary Care Physician TRANSPORTATION ARRANGEMENTS: Transportation Arrangements: Ambulance/[place] [employer] Agency and Phone #:: [facility] ( [facility] ) [phone] / [phone] Type of Service: BLS Non-emergency Is Patient Medicaid Pending?: No Discussion of financial coverage occurred with: Family [employer] Location: [facility] Destination: [facility] Financial Care Management Responsibility: None ADDITIONAL CONTACT RESOURCES: none Auth is obtained and patient has been discharged to [facility]. [employer] is transporting patient via cot at 13:00. Patient notified of discharge. He initially resisted stating he wanted to go to [facility]. Explained that he asked [employer] to have his dtr Angelic makethe decision and she chose [facility]. Patient reluctantly agreed to discharge. Encouraged patient to discuss with staff there if he is not happy with the rehab and still wishes to go to [place]. Patent's dtr Angelic notified. SIGNATURE: Tiffanie Travis RN PATIENT NAME: Elizabeth Modi DATE: September 11, 2019 TIME: 12:41 PM PAGER/CONTACT #: [phone] [facility] CASE MANAGEM HNO ID: [id number] Author: Tiffanie (Rn) KAVIN Travis Service: Care Management Author Type: Registered Nurse Type: Care Mgt Progress Note Filed: 09/11/2019 9:48 AM Note Text: CARE MANAGEMENT PROGRESS NOTE SERVICE DATE: 09/11/2019 SERVICE TIME: 9:47 AM LOS: 21 days Auth received for [facility]. MD notified. SIGNATURE: Tiffanie Travis RN PATIENT NAME: Elizabeth Modi DATE: September 11, 2019 TIME: 9:47 AM PAGER/CONTACT #: [phone] [facility] CONSULT PROGon 09-11-2019 CONSULT PROG HNO ID: [id number] Author: Doris Eden Service: Endocrinology Author Type: Physician Type: Consult Progress Note Filed: 09/11/2019 7:56 AM Note Text: ENDOCRINOLOGY CONSULT PROGRESS NOTE SERVICE DATE: 09/11/2019 SERVICE TIME: 7:40 AM Subjective INTERVAL HPI: Pt followed for diabetes mellitus type 2 with complications. Tr from [place]; adm for right foot infection and gangrene; [...] 2019 TIME: 7:56 AM PAGER: [phone] [facility] Glucose Meteron 09-11-2019 Glucose [Mass/Vol] 173 mg/dL High 70-99 [facility] Comment on above: Result Comment: KAVIN N OTIFIED Performed By: #### G LMET #### [facility] [address] [address] NUTRITIONon 09-11-2019 NUTRITION HNO ID: [id number] Author: Snow Serna Service: Nutrition Therapy Author Type: Registered Dietitian Type: Nutrition Filed: 09/11/2019 12:51 PM Note Text: NUTRITION THERAPY PROGRESS NOTE SERVICE DATE: 09/11/2019 SERVICE TIME: 12:36 PM Nutrition Assessment: Recommended Malnutrition Diagnosis: Moderate Protein-Calorie Malnutrition (09/06/19 1155 : Tanja (Rd) ALEIDA Byrne) Estimated kilocalorie needs: 9219-4919 Calorie Calculation Method: 30-35 kcals/kg Estimated protein [...] RD, LD PATIENT NAME: Elizabeth Modi DATE: September 11, 2019 TIME: 12:36 PM PAGER: [phone] [facility] PLAN OF CAREon 09-11-2019 PLAN OF CARE HNO ID: [id number] Author: Francine Pineda (Pharmacist) Service: Pharmacy Author [...] PHARMACIST September 11, 2019 11:45 AM Pager: [phone] 09/11/2019 11:45 AM Medication List START taking [...] IR 5 mg immediate release tablet Normal [facility] PROGRESSon 09-11-2019 PROGRESS HNO ID: [id number] Author: Tom Prescott DO Service: General Surgery Author Type: Resident Type: Progress Notes Filed: 09/11/2019 6:55 AM Note Text: Attestation signed by Ryan Allen at 09/11/2019 3:46 PM Attending Note I personally saw and examined the patient. I reviewed the resident's note. I agree with the resident's assessment and plan unless otherwise noted. Signature: Rayn Allen MD Date: 09/11/2019 Time: 3:46 PM Vascular/Thoracic Surgery Progress Note SERVICE DATE: 09/11/2019 Vascular AND Thoracic Surgery Service Pager: For questions or concerns Mon-Mon 6a-5p please page [phone]. After 5pm and on Weekends and Holidays, please page [phone] if in ICU or [phone] if on RNF. Subjective SUBJECTIVE: Patient seen and examined this morning. SARATH. States his pain is currently 8/10 in severity, took tylenol mostly for pain control. Dressing taken down this morning, incision examined. Still awaiting precert at [place]. Continues to do knee exercises, in knee [...] O2 Therapy: Room Air IANDO: Date 09/10/19 07 - 09/11/19 0659 09/11/19 07 - 09/12/19 0659 Shift 3871-1430 2601-6380 9487-9476 24 Hour Total 0930-1937 2935-0329 9080-3995 24 Hour Total INTAKE PO 120 120 PO 120 120 Shift Total 120 120 OUTPUT Urine 023 961 8882 2120 Void (ml) 110 078 7548 2120 Urine Not Saved. 1 x 1 x # of BMs Number of BMs 1 x 1 x 2 x Shift Total 594 509 7618 2120 Weight (kg) 87.7 87.7 87.6 87.6 [...] C/D/I with luly- healing well, minimal edema-stump grinder outside diameter in place. SKIN: Skin color, texture, turgor [...] lower extremity angiogram with partial occlusion R MICROELECTRONICS TECHNICIAN, reconstitution at R below knee pop, 2-vessel runoff. Antibiotics stopped 08/23, remains non-septic. 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 09/02 PVR R calf 0.51, R low thigh 0.74. 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 Allen SIGNATURE: Tom Prescott DO PATIENT NAME: Elizabeth Modi DATE: September 11, 2019 TIME: 6:48 AM Vascular AND Thoracic Surgery Service Pager: For questions or concerns Mon-Mon 6a-5p please page [phone]. After 5pm and on Weekends and Holidays, please page [phone] if in ICU or [phone] if on [address]. [address] [facility] THERAPY NTon 09-11-2019 THERAPY NT HNO ID: [id number] Author: Ramón (Kenya) Poppy Service: Physical Therapy Author Type: Lead Manufacturing Engineering Tech Type: Therapy (PT/OT/Speech/Resp) Filed: 09/11/2019 12:04 PM Note Text: Attestation signed by Tori (Pt) Santos at 09/12/2019 3:52 PM I reviewed and agree with the documentation corresponding to this therapy visit. SIGNATURE: Tori Graham, PT DATE: September 12, 2019 TIME: 3:52 PM Physical Therapy Treatment SERVICE DATE: 09/11/2019 SERVICE TIME: 1036 to 1111 ROOM: [id number] Recommended Discharge Disposition: Acute Rehab Recommended Discharge [...] l;Muscle Weakness (generalized) Interventions Provided: Therapeutic Exercise (65549);Therapeutic Activity (74213) Therapeutic Exercise (42752) Treatment Minutes: 18 1 unit Skilled Intervention(s): [...] and quad sets x10 hour. Therapeutic Activity (75073) Treatment Minutes: 17 1 unit Skilled Intervention(s): [...] Environment Patient Lives With: Self/Alone Assistance Available: real time operator Entry To Home: Stairs;With Rail Number Of [...] September 11, 2019 TIME: 11:[address] [facility] CONSULT PROGon 09-10-2019 CONSULT PROG HNO ID: [id number] Author: Doris Eden Service: Endocrinology Author Type: Physician Type: Consult Progress Note Filed: 09/10/2019 7:55 AM Note Text: ENDOCRINOLOGY CONSULT PROGRESS NOTE SERVICE DATE: 09/10/2019 SERVICE TIME: 7:35 AM Subjective INTERVAL HPI: Pt followed for diabetes mellitus type 2 with complications. Tr from [place]; adm for right foot infection and gangrene; [...] RRR Abdomen soft, no masses Extremities: has dressing/grinder outside diameter on R leg stump; dressing on left [...] September 10, 2019 TIME: 7:55 AM PAGER: [phone] [facility] PROGRESSon 09-10-2019 PROGRESS HNO ID: [id number] Author: Jennifer Crooks Service: Vascular Surgery Author [...] Therapy: Room Air IANDO: Date 09/09/19699 - 09/10/19 0659 09/10/19 07 - 09/11/19 0659 Shift 4162-9190 0382-4217 2149-5046 24 Hour Total 6922-6327 1040-0705 1059-1443 24 Hour Total INTAKE Shift Total OUTPUT Urine 100 941 4099 Void (ml) 085 026 7846 # of BMs Number of BMs 1 x 1 x 2 x Shift Total 615 115 9008 Weight (kg) 87.7 87.7 87.7 87.7 87.7 [...] Date Noted - Malnutrition of moderate degree ([facility]) 08/22/2019 - Gangrene of foot ([facility]) 08/21/2019 - Diabetes ([facility]) 08/21/2019 - HTN (hypertension) 08/21/2019 - Dyslipidemia 08/21/2019 - Hypothyroidism 08/21/2019 79 year old male with PMH of thyroid disease, HTN, dyslipidemia,claudicat ion, DM. 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 Antibiotics stopped 08/23, remains non-septic. 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 09/02 PVR R calf 0.51, R low thigh 0.74. 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 ? Plan: -?DIET HEART HEALTHY? 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 Dressing changed re-applied stump grinder outside diameter today. Knee immobilize q4hr - Pain control - PT/OT?recs:?acute rehab - [facility] ppx - Mobilization as able, out of bed to chair?as tolerated - PAD - continue statin?and aspirin - [facility] Service Pager: For questions or concerns Mon-Fri 6a-5p please page [phone]. After 5pm and on Weekends and Holidays, please page [phone] if in ICU or [phone] if on RNF. SIGNATURE: Jennifer Crooks MD PATIENT NAME: Elizabeth Modi DATE: September 10, 2019 TIME: 6:28 AM Pager: [facility] THERAPY NTon 09-10-2019 THERAPY NT HNO ID: [id number] Author: Ramón Obrien) Poppy Service: Physical Therapy Author Type: Lead Manufacturing Engineering Tech Type: Therapy (PT/OT/Speech/Resp) Filed: 09/10/2019 12:18 PM Note Text: Attestation signed by Tori Graham at 09/11/2019 11:35 AM I reviewed and agree with the documentation corresponding to this therapy visit. SIGNATURE: Tori Graham, PT DATE: September 11, 2019 TIME: 11:35 AM Physical Therapy Treatment SERVICE DATE: 09/10/2019 SERVICE TIME: 1043 to 1108 ROOM: [id number] Recommended Discharge Disposition: Acute Rehab Recommended Discharge [...] l;Muscle Weakness (generalized) Interventions Provided: Therapeutic Activity (69615) Therapeutic Activity (46136) Treatment Minutes: 25 2 units Skilled Intervention(s): [...] Environment Patient Lives With: Self/Alone Assistance Available: real time operator Entry To Home: Stairs;With Rail Number Of [...] September 10, 2019 TIME: 12:[address] [facility] Basic Panelon 09-09-2019 Creatinine [Mass/Vol] 0.73 mg/dL Normal 0.67-1.17 [facility] Comment on above: Result Comment: Use of this assay is not recommended for patients undergoing treatment with phenindione, due to the potential for falsely depressed results. Performed By: #### C BC1 #### [facility] [address], [place] [address] Anion gap [Moles/Vol] 13 mmol/L Normal 8-16 [facility] Comment on above: Performed By: #### C BC1 #### [facility] [address], [place] [address] CO2 [Moles/Vol] 24 mmol/L Normal 21-32 [facility] Comment on above: Performed By: #### C BC1 #### [address] [address] Urea nitrogen [Mass/Vol] 23 mg/dL High 7-18 [facility] Comment on above: Performed By: #### C BC1 #### [facility] [address], [place] [address] Calcium [Mass/Vol] 8.9 mg/dL Normal 8.5-10.1 [facility] Comment on above: Performed By: #### C BC1 #### [facility] [address], [place] [address] Glucose [Mass/Vol] 79 mg/dL Normal 70-99 [facility] Comment on above: Performed By: #### C BC1 #### [facility] [address], [place] [address] Chloride [Moles/Vol] 100 mmol/L Normal 98-107 [facility] Comment on above: Performed By: #### C BC1 #### [facility] [address], [place] [address] Potassium [Moles/Vol] 4.0 mmol/L Normal 3.5-5.1 [facility] Comment on above: Performed By: #### C BC1 #### [facility] [address] [id number] Sodium [Moles/Vol] 133 mmol/L Low 136-145 [facility] Comment on above: Performed By: #### C BC1 #### [facility] [address], [place] [address] CASE MANAGEMon 09-09-2019 CASE MANAGEM HNO ID: [id number] Author: Christina Perez Service: Care Management Author Type: ? Type: Care Mgt Progress Note Filed: 09/09/2019 11:40 AM Note Text: CARE MANAGEMENT PROGRESS NOTE SERVICE DATE: 09/09/2019 SERVICE TIME: 1000 LOS: 19 days IMM Follow Up Copy Given: Yes(verbal reminder given regarding IMM) Copy given to:: Patient Method: By Phone(TaskEasyal) SIGNATURE: Christina Perez PATIENT NAME: Elizabeth Modi DATE: September 09, 2019 TIME: 11:40 AM PAGER/CONTACT #: [phone] [facility] CASE MANAGEM HNO ID: [id number] Author: Tami SantiagoRn) KAVIN Patricio Service: Care Management Author Type: Registered Nurse Type: Care Mgt Progress Note Filed: 09/09/2019 9:15 AM Note Text: CARE MANAGEMENT PROGRESS NOTE SERVICE DATE: 09/09/2019 SERVICE TIME: 9:14 AM LOS: 19 days Chart reviewed. Precert pending for [facility] rehab. Pt will need cot for transport at d/c. Will follow. SIGNATURE: Tami Patricio RN PATIENT NAME: Elizabeth Modi DATE: September 09, 2019 TIME: 9:14 AM PAGER/CONTACT #: [phone] [facility] CONSULT PROGon 09-09-2019 CONSULT PROG HNO ID: [id number] Author: Doris Eden Service: Endocrinology Author Type: Physician Type: Consult Progress Note Filed: 09/09/2019 8:25 AM Note Text: ENDOCRINOLOGY CONSULT PROGRESS NOTE SERVICE DATE: 09/09/2019 SERVICE TIME: 8:00 AM Subjective INTERVAL HPI: Pt followed for diabetes mellitus type 2 with complications. Tr from [place]; adm for right foot infection and gangrene; [...] RRR Abdomen soft, no masses Extremities: has dressing/grinder outside diameter on R leg stump; dressing on left [...] September 09, 2019 TIME: 8:25 AM PAGER: [phone] [facility] Hemogramon 09-09-2019 Erythrocyte distribution width (RBC) [Ratio] 15.9 % High 11.6-14.4 [facility] Comment on above: Performed By: #### P 8 #### [address] [address] Hematocrit (Bld) [Volume fraction] 27.5 % Low 40.1-51.0 [facility] Comment on above: Performed By: #### P 8 #### [address] [address] Hemoglobin (Bld) [Mass/Vol] 8.8 g/dL Low 13.7-17.5 [facility] Comment on above: Performed By: #### P 8 #### [address], [place] [address] MCH (RBC) [Entitic mass] 29.2 pg Normal 25.7-32.2 [facility] Comment on above: Performed By: #### P 8 #### [facility] [address] [address] MCHC (RBC) [Mass/Vol] 32.0 % Low 32.3-36.5 [facility] Comment on above: Performed By: #### P 8 #### [facility] [address] [address] MCV (RBC) [Entitic vol] 91.4 fL Normal 83.2-95.6 [facility] Comment on above: Performed By: #### P 8 #### [facility] [address] [address] Platelet mean volume (Bld) [Entitic vol] 9.6 fL Normal 8.7-12.0 [facility] Comment on above: Performed By: #### P 8 #### [facility] [address] [address] Platelets (Bld) [#/Vol] 505 thou/cmm High 141-365 [facility] Comment on above: Performed By: #### P 8 #### [facility] [address] [address] RBC (Bld) [#/Vol] 3.01 mil/cmm Low 4.63-6.08 [facility] Comment on above: Performed By: #### P 8 #### [facility] [address] [address] RDW SD 51.8 fl High 36.1-45.8 [facility] Comment on above: Performed By: #### P 8 #### [facility] [address] [id number] WBC (Bld) [#/Vol] 12.29 thou/cmm High 4.23-9.07 [facility] Comment on above: Performed By: #### P 8 #### [facility] [address] [id number] MDRD GFRon 09-09-2019 GFR/1.73 sq M predicted among non-blacks MDRD (S/P/Bld) [Vol rate/Area] mL/min/{1.73_m2} Normal >60mL/min/1 .73m2 [facility] Comment on above: Result Comment: If t he patient is , multiply the result by 1.210. Performed By: #### C BC1 #### [address] [address] Magnesium Bloodon 09-09-2019 Magnesium [Mass/Vol] 1.3 mg/dL Low 1.6-2.6 [facility] Comment on above: Performed By: #### C _ANA #### [address] [address] PLAN OF CAREon 09-09-2019 PLAN OF CARE HNO ID: [id number] Author: Francine Pineda (Pharmacist) Service: Pharmacy Author Type: Pharmacist Type: Plan of Care Filed: 09/09/2019 11:32 AM Note Text: MEDICATION HISTORY AND MEDICATION RECONCILIATION Patient Name:Nelson Modi : 1940 Source of history:Pharmacy records: [place] [address] - [address] [place], [place] [id number] Medication Nonadherence Identified: No barriers noted- up to date on refills The above information represents the best possible medication history: Yes Reconciliation completed? Yes All OPERATIONS TECHNICIAN medications addressed by LIP Additional comments: Knpnl-ub-Dusywisse Medication List Adjustments: Medication Regimen Changes: None Medications Added: None Medications Removed: None Short-Term Medications: None Further Clarification Required: None Patient is a 30 day readmission: No Patient Interested in Bedside Delivery: No Time Spent Reviewing Patient's Medications: 40 minutes Allergies: ALLERGIES No Known Allergies Preferred Pharmacy: [facility] [address] [address] - [address] [place] [address] ?- [phone] Current OPERATIONS TECHNICIAN Medications: Prior to Admission medications as of [...] PHARMACIST September 09, 2019 11:[address] [facility] PROGRESSon 09-09-2019 PROGRESS HNO ID: [id number] Author: Tom Prescott DO Service: General Surgery [...] of pain while wearing knee immobilizer. Stump grinder outside diameter supplied by [employer]. Denies f/C. Moving the stump without to [...] O2 Therapy: Room Air IANDO: Date 09/08/19 0700 - 09/09/19 0659 09/09/19 07 - 09/10/19 0659 Shift 6852-8923 3068-8058 3722-3385 24 Hour Total 0317-4960 5693-6936 4601-2779 24 Hour Total INTAKE Shift Total OUTPUT [...] with luly in place, BKA with stump grinder outside diameter in place SKIN: Skin color, texture, turgor normal, No rashes or lesions ASSESSMENT AND PLAN: Active Hospital Problems Diagnosis Date Noted - Malnutrition of moderate degree ([facility]) 08/22/2019 - Gangrene of foot ([facility]) 08/21/2019 - Diabetes ([facility]) 08/21/2019 - HTN (hypertension) 08/21/2019 - Dyslipidemia 08/21/2019 - Hypothyroidism 08/21/2019 79 year old male with PMH of thyroid disease, HTN, dyslipidemia,claudicat ion, DM. 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 Antibiotics stopped 08/23, remains non-septic. 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 09/02 PVR R calf 0.51, R low thigh 0.74. 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 ? Plan: -?DIET HEART HEALTHY? 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 Dressing changed re-applied stump grinder outside diameter today. Knee immobilize q4hr - Pain control - PT/OT?recs:?acute rehab - [facility] ppx - Mobilization as able, out of bed to chair?as tolerated - PAD - continue statin?and aspirin - Dispo planning: awaiting precert to [facility] Discuss plan with Dr. Devin Prescott DO, MBA PGY-1 General Surgery Resident 09/09/2019 9:02 AM Pager below: Vascular AND Thoracic Surgery Service Pager: For questions or concerns Mon-Fri 6a-5p please page [phone]. After 5pm and on Weekends and Holidays, please page [phone] if in ICU or [phone] if on RNF. Normal [facility] Phosphorus Bloodon 0 Phosphate [Mass/Vol] 3.1 mg/dL Normal 2.5-4.9 [facility] Comment on above: Performed By: #### C BC1 #### [facility] [address] [place] [address] THERAPY NTon 09-09-2019 THERAPY NT HNO ID: [id number] Author: Ramón Obrien) Poppy Service: Physical Therapy Author Type: [employer] Manufacturing Engineering Tech Type: Therapy (PT/OT/Speech/Resp) Filed: 09/09/2019 11:36 AM Note Text: Attestation signed by Tori SantiagoPt) Santos at 09/09/2019 4:16 PM I reviewed and agree with the documentation corresponding to this therapy visit. SIGNATURE: Tori Graham, PT DATE: September 09, 2019 TIME: 4:16 PM Physical Therapy Treatment SERVICE DATE: 09/09/2019 SERVICE TIME: 1053 to 1119 ROOM: [id number] Recommended Discharge Disposition: Acute Rehab Recommended Discharge [...] l;Muscle Weakness (generalized) Interventions Provided: Therapeutic Exercise (82654);Therapeutic Activity (70759) Therapeutic Exercise (97159) Treatment Minutes: 14 1 unit Skilled Intervention(s): [...] change of knee flexion contracture. Therapeutic Activity (21303) Treatment Minutes: 12 1 unit Skilled Intervention(s): [...] Environment Patient Lives With: Self/Alone Assistance Available: real time operator Entry To Home: Stairs;With Rail Number Of [...] DATE: September 09, 2019 TIME: 11:28 AM [facility] Basic Panelon 09-08-2019 Creatinine [Mass/Vol] 0.71 mg/dL Normal 0.67-1.17 [facility] Comment on above: Result Comment: Use of this assay is not recommended for patients undergoing treatment with phenindione, due to the potential for falsely depressed results. Performed By: #### P 8 #### [facility] [address], [place] [address] Anion gap [Moles/Vol] 11 mmol/L Normal 8-16 [facility] Comment on above: Performed By: #### P 8 #### [facility] [address], [place] [address] Calcium [Mass/Vol] 8.7 mg/dL Normal 8.5-10.1 [facility] Comment on above: Performed By: #### P 8 #### [facility] [address], [place] [address] CO2 [Moles/Vol] 24 mmol/L Normal 21-32 [facility] Comment on above: Performed By: #### P 8 #### [facility] [address], [place] [address] Glucose [Mass/Vol] 132 mg/dL High 70-99 [facility] Comment on above: Performed By: #### P 8 #### [facility] [address], [place] [address] Urea nitrogen [Mass/Vol] 17 mg/dL Normal 7-18 [facility] Comment on above: Performed By: #### P 8 #### [facility] [address], [place] [address] Chloride [Moles/Vol] 102 mmol/L Normal 98-107 [facility] Comment on above: Performed By: #### P 8 #### [facility] [address], [place] [address] Potassium [Moles/Vol] 3.9 mmol/L Normal 3.5-5.1 [facility] Comment on above: Performed By: #### P 8 #### [facility] [address], [place] [address] Sodium [Moles/Vol] 133 mmol/L Low 136-145 [facility] Comment on above: Performed By: #### P 8 #### [facility] [address] [place] [address] CONSULT PROGoerum 09-08-2019 CONSULT PROG HNO ID: [id number] Author: Hermila Gallegos Service: Endocrinology Author Type: Physician Type: Consult Progress Note Filed: 09/08/2019 1:57 PM Note Text: ENDOCRINOLOGY CONSULT PROGRESS NOTE SERVICE DATE: 09/08/2019 SERVICE TIME: 10:20 AM Subjective INTERVAL HPI: Pt followed for diabetes mellitus type 2 with complications. Tr from [place]; adm for right foot infection and gangrene; [...] Labs 09/08/19 1102 09/08/19 0719 09/08/19 0446 09/07/19 20209/07/19 0632 09/06/19 0545 GLUC -- -- 132* [...] (HCC) POA: Yes Assessment AND Plan: S/P guilmarcelo Right BKA on 08/22; had B/L LE [...] 2019 TIME: 1:57 PM PAGER: [phone] [facility] Hemogramon 09-08-2019 Erythrocyte distribution width (RBC) [Ratio] 15.8 % High 11.6-14.4 [facility] Comment on above: Performed By: #### P 8 #### [facility] [address], [place] [address] Hematocrit (Bld) [Volume fraction] 27.0 % Low 40.1-51.0 [facility] Comment on above: Performed By: #### P 8 #### [facility] [address], [place] [address] Hemoglobin (Bld) [Mass/Vol] 8.2 g/dL Low 13.7-17.5 [facility] Comment on above: Performed By: #### P 8 #### [address] [address] MCH (RBC) [Entitic mass] 27.8 pg Normal 25.7-32.2 [facility] Comment on above: Performed By: #### P 8 #### [facility] [address], [place] [address] MCHC (RBC) [Mass/Vol] 30.4 % Low 32.3-36.5 [facility] Comment on above: Performed By: #### P 8 #### [facility] [address], [place] [address] MCV (RBC) [Entitic vol] 91.5 fL Normal 83.2-95.6 [facility] Comment on above: Performed By: #### P 8 #### [facility] [address], [place] [address] Platelet mean volume (Bld) [Entitic vol] 10.2 fL Normal 8.7-12.0 [facility] Comment on above: Performed By: #### P 8 #### [facility] [address], [place] [address] Platelets (Bld) [#/Vol] 444 thou/cmm High 141-365 [facility] Comment on above: Performed By: #### P 8 #### [facility] [address], [place] [address] RBC (Bld) [#/Vol] 2.95 mil/cmm Low 4.63-6.08 [facility] Comment on above: Performed By: #### P 8 #### [facility] [address], [place] [address] RDW SD 51.5 fl High 36.1-45.8 [facility] Comment on above: Performed By: #### P 8 #### [facility] [address], [place] [address] WBC (Bld) [#/Vol] 12.29 thou/cmm High 4.23-9.07 [facility] Comment on above: Performed By: #### P 8 #### [facility] [address], [place] [address] Magnesium Bloodon 09-08-2019 Magnesium [Mass/Vol] 1.2 mg/dL Low 1.6-2.6 [facility] Comment on above: Performed By: #### C BC1 #### [facility] [address], [place] [address] PROGRESSon 09-08-2019 PROGRESS HNO ID: [id number] Author: Jennifer Crooks Service: Vascular Surgery Author [...] pain moderately well controlled this am. Stump grinder outside diameter applied by [employer] yesterday. Knee immobilizer in place. Tolerating diet [...] 0659 09/08/19 07 - 09/09/19 0659 Shift 5046-6497 4198-2694 8186-7631 24 Hour Total 3926-6803 1496-5308 1057-9079 24 Hour Total INTAKE Shift Total OUTPUT Urine 259 527 8025 Void (ml) 369 810 0713 # of BMs Stool Incontinence 1 x 1 x Number of BMs 1 x 1 x Shift Total 752 233 6037 Weight (kg) 90 90 90.4 90.4 90.4 [...] Gangrene of foot (HCC) 08/21/2019 - Diabetes ([facility]) 08/21/2019 - HTN (hypertension) 08/21/2019 - Dyslipidemia 08/21/2019 - Hypothyroidism 08/21/2019 79 year old male with PMH of thyroid disease, HTN, dyslipidemia,claudicat ion, DM. 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 Will change dressing/re-apply stump grinder outside diameter today. - Pain control - PT/OT?recs:?acute rehab - [facility] ppx - Mobilization as able, out of bed to chair?as tolerated - PAD - continue statin?and aspirin - Dispo planning: awaiting precert to [facility] Addendum: (10:34 AM) Patient seen bedside with attending. Knee immobilizer/and dressing/stump grinder outside diameter taken down. Surgical incision appears healthy with minimal drainage. No erythema or bleeding. [place] intact. Dressing/stump grinder outside diameter reapplied. Will continue knee immobilizer q4H and while OOB. ? Vascular AND Thoracic Surgery Service Pager: For questions or concerns Mon-Mon 6a-5p please page [phone]. After 5pm and on Weekends and Holidays, please page [phone] if in ICU or [phone] if on RNF. SIGNATURE: Jennifer Crooks MD PATIENT NAME: Elizabeth Modi DATE: September 08, 2019 TIME: 6:45 AM Pager: Normal [facility] Phosphorus Bloodon 0 Phosphate [Mass/Vol] 3.0 mg/dL Normal 2.5-4.9 [facility] Comment on above: Performed By: #### C BC1 #### [place] [address] Basic Panelon 09-07-2019 Creatinine [Mass/Vol] 0.84 mg/dL Normal 0.67-1.17 [facility] Comment on above: Result Comment: Use of this assay is not recommended for patients undergoing treatment with phenindione, due to the potential for falsely depressed results. Performed By: #### F ERR #### [place] [address] Anion gap [Moles/Vol] 11 mmol/L Normal 8-16 [facility] Comment on above: Performed By: #### F ERR #### [place] [address] CO2 [Moles/Vol] 25 mmol/L Normal 21-32 [facility] Comment on above: Performed By: #### F ERR #### [place] [address] Glucose [Mass/Vol] 147 mg/dL High 70-99 [facility] Comment on above: Performed By: #### F ERR #### [place] [address] Urea nitrogen [Mass/Vol] 14 mg/dL Normal 7-18 [facility] Comment on above: Performed By: #### F ERR #### [address] [place], [place] [address] Calcium [Mass/Vol] 9.5 mg/dL Normal 8.5-10.1 [facility] Comment on above: Performed By: #### F ERR #### [facility] [address], [place] [address] Chloride [Moles/Vol] 101 mmol/L Normal 98-107 [facility] Comment on above: Performed By: #### F ERR #### [facility] [address], [place] [address] Potassium [Moles/Vol] 4.2 mmol/L Normal 3.5-5.1 [facility] Comment on above: Performed By: #### F ERR #### [facility] [address], [place] [address] Sodium [Moles/Vol] 133 mmol/L Low 136-145 [facility] Comment on above: Performed By: #### F ERR #### [facility] [address], [place] [address] CONSULT PROGon 09-07-2019 CONSULT PROG HNO ID: [id number] Author: Hermila Gallegos Service: Endocrinology Author Type: Physician Type: Consult Progress Note Filed: 09/07/2019 11:25 AM Note Text: ENDOCRINOLOGY CONSULT PROGRESS NOTE SERVICE DATE: 09/07/2019 SERVICE TIME: 11:22 AM Subjective INTERVAL HPI: Pt followed for diabetes mellitus type 2 with complications. Tr from [place]; adm for right foot infection and gangrene; [...] 2019 TIME: 11:24 AM PAGER: [phone] [facility] Hemogramon 09-07-2019 Erythrocyte distribution width (RBC) [Ratio] 16.1 % High 11.6-14.4 [facility] Comment on above: Performed By: #### M AG #### [place] [address] Hematocrit (Bld) [Volume fraction] 31.4 % Low 40.1-51.0 [facility] Comment on above: Performed By: #### M AG #### [place] [address] Hemoglobin (Bld) [Mass/Vol] 9.8 g/dL Low 13.7-17.5 [facility] Comment on above: Performed By: #### M AG #### [place] [address] MCH (RBC) [Entitic mass] 28.7 pg Normal 25.7-32.2 [facility] Comment on above: Performed By: #### M AG #### [address] [address] MCHC (RBC) [Mass/Vol] 31.2 % Low 32.3-36.5 [facility] Comment on above: Performed By: #### M AG #### [place] [id number] MCV (RBC) [Entitic vol] 92.1 fL Normal 83.2-95.6 [facility] Comment on above: Performed By: #### M AG #### [facility] [address], [place] [address] Platelet mean volume (Bld) [Entitic vol] 9.6 fL Normal 8.7-12.0 [facility] Comment on above: Performed By: #### M AG #### [facility] [address], [place] [address] Platelets (Bld) [#/Vol] 519 thou/cmm High 141-365 [facility] Comment on above: Performed By: #### M AG #### [facility] [address], [place] [address] RBC (Bld) [#/Vol] 3.41 mil/cmm Low 4.63-6.08 [facility] Comment on above: Performed By: #### M AG #### [facility] [address] [address] RDW SD 53.3 fl High 36.1-45.8 [facility] Comment on above: Performed By: #### M AG #### [facility] [address], [place] [address] WBC (Bld) [#/Vol] 12.27 thou/cmm High 4.23-9.07 [facility] Comment on above: Performed By: #### M AG #### [facility] [address], [place] [address] Magnesium Bloodon 09-07-2019 Magnesium [Mass/Vol] 1.3 mg/dL Low 1.6-2.6 [facility] Comment on above: Performed By: #### F ERR #### [facility] [address] [address] OPERATIVE NOon 09-07-2019 OPERATIVE NO HNO ID: [id number] Author: Ryan Allen Service: ? Author Type: Physician Type: Operative Report Filed: 09/09/2019 8:10 AM Note Text: [facility] - Operative Report ELIZABETH MODI : 1940 AGE: 79. SEX: M PATIENT TYPE: I HOSP SVC: KEENAN LOCATION: [facility] ATTENDING PHYSICIAN: JOVANNY PARMAR CSN NUMBER: [id number] DATE OF SURGERY/PROCEDURE: 09/05/2019 INCISION/PROCEDURE START TIME: 12:28 PM INCISION CLOSE/PROCEDURE END TIME: 2:14 PM PREOPERATIVE DIAGNOSIS: Gangrenous right lower extremity, status post guillotine amputation below the knee. POSTOPERATIVE DIAGNOSIS: Gangrenous right lower extremity, status post guillotine amputation below the knee. SURGEON: Ryan Allen MD, FACS QUALITY ASSURANCE SPECIALIST: Tom Prescott DO, resident, also surgical manager is Irvin Walker. SURGERY/PROCEDURE: Revision of a [...] tuberosity location and also used the oscillating Delia saw to divide the fibula slightly proximal [...] satisfactory postop condition. Ryan Allen MD, FACS RGN:[id number] Normal [facility] PROGRESSon 09-07-2019 PROGRESS HNO ID: [id number] Author: Jennifer Crooks Service: Vascular Surgery Author [...] 09/06/[address] - 09/07/1965809/07/[address] - 09/08/19 0659 Shift 4067-3001 5045-7048 9471-8948 24 Hour Total 7158-5165 4592-9392 9511-3485 24 Hour Total INTAKE Shift Total OUTPUT Urine 550 393 961 2341 Void (ml) 550 305 543 0037 Shift Total 550 064 636 4301 Weight (kg) 89.3 89.3 90 90 90 [...] lower extremity angiogram with partial occlusion R MICROELECTRONICS TECHNICIAN, reconstitution at R below knee pop, 2-vessel [...] erythema or drainage, minimal edema, no bleeding Nori consult for stump grinder outside diameter 09/06 - Pain control - PT/OT recs: acute rehab - [facility] ppx - Mobilization as able, out of bed to chair?as tolerated - PAD - continue statin?and aspirin - Dispo planning: awaiting precert to [facility] Vascular AND Thoracic Surgery Service Pager: For questions or concerns Mon-Mon 6a-5p please page [phone]. After 5pm and on Weekends and Holidays, please page [phone] if in ICU or [phone] if on RNF. SIGNATURE: Jennifer Crooks MD PATIENT NAME: Elizabeth Modi DATE: September 07, 2019 TIME: 6:39 AM Pager: Normal [facility] Phosphorus Bloodon 0 Phosphate [Mass/Vol] 3.0 mg/dL Normal 2.5-4.9 [facility] Comment on above: Performed By: #### C BC1 #### [place] [address] Basic Panelon 09-06-2019 Creatinine [Mass/Vol] 0.70 mg/dL Normal 0.67-1.17 [facility] Comment on above: Result Comment: Use of this assay is not recommended for patients undergoing treatment with phenindione, due to the potential for falsely depressed results. Performed By: #### C _ANA #### [address] [address] Anion gap [Moles/Vol] 10 mmol/L Normal 8-16 [facility] Comment on above: Performed By: #### C _ANA #### [address] [address] CO2 [Moles/Vol] 24 mmol/L Normal 21-32 [facility] Comment on above: Performed By: #### C _ANA #### [address] [address] Urea nitrogen [Mass/Vol] 14 mg/dL Normal 7-18 [facility] Comment on above: Performed By: #### C _ANA #### [address] [address] Calcium [Mass/Vol] 8.1 mg/dL Low 8.5-10.1 [facility] Comment on above: Performed By: #### C _ANA #### [address] [address] Glucose [Mass/Vol] 157 mg/dL High 70-99 [facility] Comment on above: Performed By: #### C _ANA #### [facility] [address] [address] Chloride [Moles/Vol] 106 mmol/L Normal 98-107 [facility] Comment on above: Performed By: #### C _ANA #### [facility] [address] [address] Potassium [Moles/Vol] 4.4 mmol/L Normal 3.5-5.1 [facility] Comment on above: Performed By: #### C _ANA #### [facility] [address] [place] [address] Sodium [Moles/Vol] 136 mmol/L Normal 136-145 [facility] Comment on above: Performed By: #### C _ANA #### [facility] [address] [address] CASE MGT INIT ASSESon 2019 CASE MGT INIT [facility] HNO ID: [id number] Author: Tami SantiagoRn) KAVIN Patricio Service: Care Management Author Type: Registered Nurse Type: Care Mgt Initial Assessment Filed: 09/06/2019 2:24 PM Note Text: CARE MANAGEMENT PROGRESS NOTE SERVICE DATE: 09/06/2019 SERVICE TIME: 2:23 PM LOS: 16 days Chart reviewed. Plan for [facility] - precert pending. Pt will need cot for transport. Will follow. SIGNATURE: Tami Patricio RN PATIENT NAME: Elizabeth Modi DATE: September 06, 2019 TIME: 2:22 PM PAGER/CONTACT #: [phone] [facility] CONSULT PROGon 09-06-2019 CONSULT PROG HNO ID: [id number] Author: Luke Briones (Gurwinder) Sailaja Service: Wound/Ostomy Author Type: Nurse Practitioner Type: Consult Progress Note Filed: 09/06/2019 9:52 AM Note Text: WOUND CARE PROGRESS SENIOR CONSUMER INSIGHTS CONSULTANT NOTE SERVICE DATE: 09/06/2019 SERVICE TIME: 09:02 [...] who is seen today with Zee Alba, Wound/investigations director, and presented to hospital with complaints of [...] left heel and seat cushion. Will reorder [id number] mattress as patient is still on regular mattress and turn and reposition every 2 hours or more often. A photo was taken of the patient's wound(s). Photos can be found under the Get Images tab on [employer]. Photos are uploaded by the wound caretaker resort and may not be immediately available for viewing. Contact the wound and ostomy care department with questions. SIGNATURE: Luke Menard APRN.GURWINDER,CWOCN PATIENT NAME: Elizabeth Modi DATE: September 06, 2019 TIME: 9:45 AM CONTACT#: [id number] [facility] CONSULT PROG HNO ID: [id number] Author: Doris Eden Service: Endocrinology Author Type: Physician Type: Consult Progress Note Filed: 09/06/2019 7:59 AM Note Text: ENDOCRINOLOGY CONSULT PROGRESS NOTE SERVICE DATE: 09/06/2019 SERVICE TIME: 7:45 AM Subjective INTERVAL HPI: Pt followed for diabetes mellitus type 2 with complications. Tr from [place]; adm for right foot infection and gangrene; [...] 2019 TIME: 7:59 AM PAGER: [phone] [facility] Hemogramon 09-06-2019 Erythrocyte distribution width (RBC) [Ratio] 16.2 % High 11.6-14.4 [facility] Comment on above: Performed By: #### F ERR #### [place] [address] Hematocrit (Bld) [Volume fraction] 26.4 % Low 40.1-51.0 [facility] Comment on above: Performed By: #### F ERR #### [place] [address] Hemoglobin (Bld) [Mass/Vol] 8.2 g/dL Low 13.7-17.5 [facility] Comment on above: Performed By: #### F ERR #### [place] [address] MCH (RBC) [Entitic mass] 28.5 pg Normal 25.7-32.2 [facility] Comment on above: Performed By: #### F ERR #### [place] [address] MCHC (RBC) [Mass/Vol] 31.1 % Low 32.3-36.5 [facility] Comment on above: Performed By: #### F ERR #### [place] [address] MCV (RBC) [Entitic vol] 91.7 fL Normal 83.2-95.6 [facility] Comment on above: Performed By: #### F ERR #### [facility] [address] [address] Platelet mean volume (Bld) [Entitic vol] 9.7 fL Normal 8.7-12.0 [facility] Comment on above: Performed By: #### F ERR #### [facility] [address] [place] [address] Platelets (Bld) [#/Vol] 410 thou/cmm High 141-365 [facility] Comment on above: Performed By: #### F ERR #### [facility] [address] [place] [address] RBC (Bld) [#/Vol] 2.88 mil/cmm Low 4.63-6.08 [facility] Comment on above: Performed By: #### F ERR #### [place] [address] RDW SD 53.9 fl High 36.1-45.8 [facility] Comment on above: Performed By: #### F ERR #### [facility] [address] [place] [address] WBC (Bld) [#/Vol] 10.15 thou/cmm High 4.23-9.07 [facility] Comment on above: Performed By: #### F ERR #### [place] [address] Magnesium Bloodon 09-06-2019 Magnesium [Mass/Vol] 1.5 mg/dL Low 1.6-2.6 [facility] Comment on above: Performed By: #### C _ANA #### [place] [address] NUTRITIONon 09-06-2019 NUTRITION HNO ID: [id number] Author: Tanja Byrne RD Service: Nutrition Therapy [...] condition;Depletion of fat/muscle stores Estimated kilocalorie needs: 6811-6002 Calorie Calculation Method: 30-35 kcals/kg Estimated protein [...] September 06, 2019 TIME: 9:53 AM PAGER: [phone] [facility] PROGRESSon 09-06-2019 PROGRESS HNO ID: [id number] Author: Tom Prescott DO Service: General Surgery [...] Hopefully takedown dressing tomorrow and evaluate stump. [employer] to visit for stump grinder outside diameter hopefully tomorrow as well Signature: Ryan Allen MD Date: 09/06/2019 Time: 2:39 PM Vascular Surgery Progress Note SERVICE DATE: 09/06/2019 Vascular AND Thoracic Surgery Service Pager: For questions or concerns Mon-Fri 6a-5p please page [phone]. After 5pm and on Weekends and Holidays, please page [phone] if in ICU or [phone] if on [...] 0659 09/06/19 07 - 09/07/19 0659 Shift 4648-1955 9683-6398 1982-6295 24 Hour Total 6295-6857 2101-2964 9130-8629 24 Hour Total INTAKE PO 240 240 480 PO 240 240 480 IV 750 100 850 OR Crystalloid intake (mL) 750 750 Volume (mL) (lactated ringers infusion) 100 100 Shift Total 750 262 886 8078 OUTPUT Urine 150 1100 1300 2550 Void [...] Gangrene of foot (HCC) 08/21/2019 - Diabetes ([facility]) 08/21/2019 - HTN (hypertension) 08/21/2019 - Dyslipidemia 08/21/2019 - Hypothyroidism 08/21/2019 This is a 79 year old male with PMH of thyroid disease, HTN, dyslipidemia,claudicat ion, DM. 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 Antibiotics stopped 08/23, remains non-septic. 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 09/02 PVR R calf 0.51, R low thigh 0.74. 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 Dressing to be taken down tomorrow 09/06 Nori consult for stump grinder outside diameter 09/06 - Pain control - PT/OT recs: [...] ICU or 2[address] [facility] Phosphorus Bloodon 0 Phosphate [Mass/Vol] 2.9 mg/dL Normal 2.5-4.9 [facility] Comment on above: Performed By: #### M AG #### [facility] [address] [place] [address] THERAPY NTon 09-06-2019 THERAPY NT HNO ID: [id number] Author: Briana SantiagoOtr/Vickie Watson Service: Occupational Therapy Author Type: Occupational Therapist Type: Therapy (PT/OT/Speech/Resp) Filed: 09/06/2019 3:43 PM Note Text: Occupational Therapy Treatment SERVICE DATE: 09/06/2019 SERVICE TIME: 1519 to 1533 ROOM: [place] [address] Recommended Discharge Disposition: Acute Rehab Recommended Discharge [...] feet;General symptoms and signs-other Interventions Provided: Self Group Home Management (72272) Self Group Home Management ([address]113) Treatment Minutes: 14 1 unit Skilled Intervention(s): [...] On 09/05/19 Reason for Occupational Therapy Consult: MANAGER LINUX Relevant Past Medical History: thyroid, HTN, DM, claudication Patient Report: Pt seen bedside, agreeable to OT, no complaints this p.m. 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: real time operator Entry To Home: Stairs;With Rail Number Of [...] September 06, 2019 TIME: 3:[address] [facility] THERAPY NT HNO ID: [id number] Author: Marilyn (Pt) Mark Service: Physical Therapy Author Type: Physical Therapist Type: Therapy (PT/OT/Speech/Resp) Filed: 09/06/2019 12:03 PM Note Text: Physical Therapy Treatment SERVICE DATE: 09/06/2019 SERVICE TIME: 1109 to 1119 ROOM: [place] [address] Recommended Discharge Disposition: Acute Rehab Recommended Discharge [...] l;Muscle Weakness (generalized) Interventions Provided: Therapeutic Activity (55317) Therapeutic Activity (80468) Treatment Minutes: 10 1 unit Skilled Intervention(s): [...] Environment Patient Lives With: Self/Alone Assistance Available: real time operator Entry To Home: Stairs;With Rail Number Of [...] September 06, 2019 TIME: 11:[address] [facility] ABO/Rh Confirmationon 2019 ABO group Nom (Bld) A Normal [facility] Comment on above: Performed By: #### G LMET #### [facility] [address], [place] [address] RH Type Positive Normal [facility] Comment on above: Performed By: #### G LMET #### [facility] [address], [place] [address] ANES [place] 09-05-2019 ANES POST HNO ID: [id number] Author: Sj Huizar Service: Anesthesiology Author Type: [...] 05, 2019 TIME: 5:54 PM PAGER/CONTACT #: [phone] [facility] ANES PREOPon 09-05-2019 ANES PREOP HNO ID: [id number] Author: Al Pugh Service: Anesthesiology Author Type: [...] ONCE Francine (Res) Phyllis 41.7 mL/hr at 09/05/1917 30 mmol at 09/05/19 0617 - [MAR [...] BEDTIME Francine (Res) Phyllis 10 Units at 09/04/19 2132 - [MAR Hold due to Transfer] ondansetron [...] September 05, 2019 TIME: 11:39 AM CSN: [id number] [facility] BRIEF OP NOTon 09-05-2019 BRIEF OP NOT HNO ID: [id number] Author: Tom Prescott DO Service: General Surgery [...] BRIEF OPERATIVE / PROCEDURE NOTE LOG ID: [id number] SURGERY/PROCEDURE DATE: 09/05/2019 INCISION/PROCEDURE START TIME: 12:28 PM INCISION CLOSE/PROCEDURE END TIME: 2:14 PM SURGEON(S)/PROCEDURALI ST(S) AND QUALITY ASSURANCE SPECIALIST(S): Surgeon(s) and Role: * Ryan Allen - Primary * Tom Prescott DO - Resident - Assisting Porcelain Enameling Supervisor: Irvin Walker SA SURGERY/PROCEDURE(S): Revision of prior [...] ICU or 2174 [address]. [address] [facility] Basic Panelon 09-05-2019 Creatinine [Mass/Vol] 0.73 mg/dL Normal 0.67-1.17 [facility] Comment on above: Result Comment: Use of this assay is not recommended for patients undergoing treatment with phenindione, due to the potential for falsely depressed results. Performed By: #### F ERR #### [address] [address] Anion gap [Moles/Vol] 9 mmol/L Normal 8-16 [facility] Comment on above: Performed By: #### F ERR #### [address] [address] Calcium [Mass/Vol] 7.8 mg/dL Low 8.5-10.1 [facility] Comment on above: Performed By: #### F ERR #### [address] [address] CO2 [Moles/Vol] 26 mmol/L Normal 21-32 [facility] Comment on above: Performed By: #### F ERR #### [address] [address] Glucose [Mass/Vol] 137 mg/dL High 70-99 [facility] Comment on above: Performed By: #### F ERR #### [address] [address] Urea nitrogen [Mass/Vol] 17 mg/dL Normal 7-18 [facility] Comment on above: Performed By: #### F ERR #### [facility] [address], [place] [address] Chloride [Moles/Vol] 105 mmol/L Normal 98-107 [facility] Comment on above: Performed By: #### F ERR #### [facility] [address], [place] [address] Potassium [Moles/Vol] 4.1 mmol/L Normal 3.5-5.1 [facility] Comment on above: Performed By: #### F ERR #### [facility] [address], [place] [address] Sodium [Moles/Vol] 136 mmol/L Normal 136-145 [facility] Comment on above: Performed By: #### F ERR #### [facility] [address], [place] [address] CONSULT PROGon 09-05-2019 CONSULT PROG HNO ID: [id number] Author: Doris Eden Service: Endocrinology Author Type: Physician Type: Consult Progress Note Filed: 09/05/2019 8:01 AM Note Text: ENDOCRINOLOGY CONSULT PROGRESS NOTE SERVICE DATE: 09/05/2019 SERVICE TIME: 7:50 AM Subjective INTERVAL HPI: Pt followed for diabetes mellitus type 2 with complications. Tr from [place]; adm for right foot infection and gangrene; [...] 2019 TIME: 8:01 AM PAGER: [phone] [facility] Hemogramon 09-05-2019 Erythrocyte distribution width (RBC) [Ratio] 16.0 % High 11.6-14.4 [facility] Comment on above: Performed By: #### G LMET #### [facility] [address] [place] [address] Hematocrit (Bld) [Volume fraction] 25.4 % Low 40.1-51.0 [facility] Comment on above: Performed By: #### G LMET #### [facility] [address] [place] [address] Hemoglobin (Bld) [Mass/Vol] 8.1 g/dL Low 13.7-17.5 [facility] Comment on above: Performed By: #### G LMET #### [place] [address] MCH (RBC) [Entitic mass] 29.1 pg Normal 25.7-32.2 [facility] Comment on above: Performed By: #### G LMET #### [facility] [address] [place] [address] MCHC (RBC) [Mass/Vol] 31.9 % Low 32.3-36.5 [facility] Comment on above: Performed By: #### G LMET #### [facility] [address] [place] [address] MCV (RBC) [Entitic vol] 91.4 fL Normal 83.2-95.6 [facility] Comment on above: Performed By: #### G LMET #### [facility] [address] [place] [address] Platelet mean volume (Bld) [Entitic vol] 9.7 fL Normal 8.7-12.0 [facility] Comment on above: Performed By: #### G LMET #### [facility] [address], [place] [address] Platelets (Bld) [#/Vol] 387 thou/cmm High 141-365 [facility] Comment on above: Performed By: #### G LMET #### [facility] [address] [place] [id number] RBC (Bld) [#/Vol] 2.78 mil/cmm Low 4.63-6.08 [facility] Comment on above: Performed By: #### G LMET #### [facility] [address] [place] [address] RDW SD 52.4 fl High 36.1-45.8 [facility] Comment on above: Performed By: #### G LMET #### [facility] [address] [place] [id number] WBC (Bld) [#/Vol] 9.06 thou/cmm Normal 4.23-9.07 [facility] Comment on above: Performed By: #### G LMET #### [facility] [address] [place] [address] Magnesium Bloodon 09-05-2019 Magnesium [Mass/Vol] 1.3 mg/dL Low 1.6-2.6 [facility] Comment on above: Performed By: #### C _ANA #### [facility] [address] [place] [address] PROGRESSon 09-05-2019 PROGRESS HNO ID: [id number] Author: Francine Roberts Service: Vascular Surgery Author [...] 09/05/1958 09/05/19 07 - 09/06/19 0659 Shift 3749-0292 0455-2045 8182-4339 24 Hour Total 0467-2713 6065-3048 2649-9126 24 Hour Total INTAKE Shift Total OUTPUT Urine 650 681 391 6652 Void (ml) 650 859 782 2961 Shift Total 650 832 704 0061 Weight (kg) 89.4 89.4 89.4 89.4 89.4 [...] lower extremity angiogram with partial occlusion R MICROELECTRONICS TECHNICIAN, reconstitution at R below knee pop, 2-vessel [...] statin?and aspirin - R BKA today SIGNATURE: rFancine Roberts MD PATIENT NAME: Elizabeth Modi DATE: September 05, 2019 TIME: 6:21 AM Vascular AND Thoracic Surgery Service Pager: For questions or concerns Mon-Mon 6a-5p please page [phone]. After 5pm and on Weekends and Holidays, please page [phone] if in ICU or [phone] if on RNF. Normal [facility] Phosphorus Bloodon 0 Phosphate [Mass/Vol] 2.9 mg/dL Normal 2.5-4.9 [facility] Comment on above: Performed By: #### M AG #### [place] [address] Surgical Tissue Examon 09-04 Surgical Tissue Exam Test performed at [place] [address] NAME: ELIZABETH MODI REQUESTING: JOVANNY PARMAR MD [...] mild calcific atherosclerosis. Thrombi are not present. Wood Pole Treater sections are submitted as follows: 1 - soft tissue line of resection (black ink); 2-3 - enrollment eligibility representative sections of red-pink ischemic process at distal aspect; 4 - enrollment eligibility representative sections of vessels; 5 - enrollment eligibility representative section of bone following a period of decalcification. KVB:cindi ARENAS M.D. (Electronic signature on file) Signed out: 09/09/2019 14:52 PRINTED: 09/09/2019 Page 1 of 1 [facility] Comment on above: Performed By: #### M AG #### [place] [address] Type and Screenon 09-05-2019 ABO group Nom (Bld) A Normal [facility] Comment on above: Performed By: #### M AG #### [facility] [address] [place] [address] Comment See Below Normal [facility] Comment on above: Result Comment: Scre en &/or Xmatch expires in 3 days at 12 midnight. Redraw patient at that time. Performed By: #### M AG #### [facility] [address] [place] [address] RH Type Positive Normal [facility] Comment on above: Performed By: #### M AG #### [facility] [address] [place] [address] Basic Panelon 09-04-2019 Creatinine [Mass/Vol] 0.87 mg/dL Normal 0.67-1.17 [facility] Comment on above: Result Comment: Use of this assay is not recommended for patients undergoing treatment with phenindione, due to the potential for falsely depressed results. Performed By: #### F ERR #### [place] [address] Anion gap [Moles/Vol] 8 mmol/L Normal 8-16 [facility] Comment on above: Performed By: #### F ERR #### [place] [address] Calcium [Mass/Vol] 8.0 mg/dL Low 8.5-10.1 [facility] Comment on above: Performed By: #### F ERR #### [place] [address] CO2 [Moles/Vol] 25 mmol/L Normal 21-32 [facility] Comment on above: Performed By: #### F ERR #### [facility] [address] [place] [address] Glucose [Mass/Vol] 113 mg/dL High 70-99 [facility] Comment on above: Performed By: #### F ERR #### [facility] [address] [place] [address] Urea nitrogen [Mass/Vol] 23 mg/dL High 7-18 [facility] Comment on above: Performed By: #### F ERR #### [address] [place], [place] [address] Chloride [Moles/Vol] 110 mmol/L High 98-107 [facility] Comment on above: Performed By: #### F ERR #### [facility] [address], [place] [address] Potassium [Moles/Vol] 4.0 mmol/L Normal 3.5-5.1 [facility] Comment on above: Performed By: #### F ERR #### [facility] [address], [place] [address] Sodium [Moles/Vol] 139 mmol/L Normal 136-145 [facility] Comment on above: Performed By: #### F ERR #### [facility] [address] [place] [address] CASE MANAGEMon 09-04-2019 CASE MANAGEM HNO ID: [id number] Author: Tami Izquierdo) KAVIN Patricio Service: Care Management Author Type: Registered Nurse Type: Care Mgt Progress Note Filed: 09/04/2019 9:41 AM Note Text: CARE MANAGEMENT PROGRESS NOTE SERVICE DATE: 09/04/2019 SERVICE TIME: 9:36 AM LOS: 14 days Chart reviewed. 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 Plan for [place] [facility] at d/c. Pt will need auth when medically stable and likely cot transport. Will follow. SIGNATURE: Tami Patricio RN PATIENT NAME: Elizabeth Modi DATE: September 04, 2019 TIME: 9:36 AM PAGER/CONTACT #: [phone] [facility] CONSULT PROGon 09-04-2019 CONSULT PROG HNO ID: [id number] Author: Doris Eden Service: Endocrinology Author Type: Physician Type: Consult Progress Note Filed: 09/04/2019 9:41 AM Note Text: ENDOCRINOLOGY CONSULT PROGRESS NOTE SERVICE DATE: 09/04/2019 SERVICE TIME: 9:20 AM Subjective INTERVAL HPI: Pt followed for diabetes mellitus type 2 with complications. Tr from [place]; adm for right foot infection and gangrene; [...] 2019 TIME: 9:41 AM PAGER: [phone] [facility] Hemogramon 09-04-2019 Erythrocyte distribution width (RBC) [Ratio] 15.8 % High 11.6-14.4 [facility] Comment on above: Performed By: #### F ERR #### [place] [address] Hematocrit (Bld) [Volume fraction] 27.6 % Low 40.1-51.0 [facility] Comment on above: Performed By: #### F ERR #### [place] [address] Hemoglobin (Bld) [Mass/Vol] 8.3 g/dL Low 13.7-17.5 [facility] Comment on above: Performed By: #### F ERR #### [place] [address] MCH (RBC) [Entitic mass] 28.0 pg Normal 25.7-32.2 [facility] Comment on above: Performed By: #### F ERR #### [place] [address] MCHC (RBC) [Mass/Vol] 30.1 % Low 32.3-36.5 [facility] Comment on above: Performed By: #### F ERR #### [place] [address] MCV (RBC) [Entitic vol] 93.2 fL Normal 83.2-95.6 [facility] Comment on above: Performed By: #### F ERR #### [facility] [address] [place] [address] Platelet mean volume (Bld) [Entitic vol] 10.0 fL Normal 8.7-12.0 [facility] Comment on above: Performed By: #### F ERR #### [facility] [address] [place] [address] Platelets (Bld) [#/Vol] 371 thou/cmm High 141-365 [facility] Comment on above: Performed By: #### F ERR #### [facility] [address] [place] [address] RBC (Bld) [#/Vol] 2.96 mil/cmm Low 4.63-6.08 [facility] Comment on above: Performed By: #### F ERR #### [place] [address] RDW SD 51.6 fl High 36.1-45.8 [facility] Comment on above: Performed By: #### F ERR #### [facility] [address] [place] [address] WBC (Bld) [#/Vol] 9.95 thou/cmm High 4.23-9.07 [facility] Comment on above: Performed By: #### F ERR #### [place] [address] Magnesium Bloodon 09-04-2019 Magnesium [Mass/Vol] 1.8 mg/dL Normal 1.6-2.6 [facility] Comment on above: Performed By: #### M AG #### [place] [address] PROGRESSon 09-04-2019 PROGRESS HNO ID: [id number] Author: Francine Roberts Service: Vascular Surgery Author [...] questions or concerns Mon-Fri 6a-5p please page [phone]. After 5pm and on Weekends and Holidays, please page [phone] if in ICU or [phone] if on RNF. Subjective SUBJECTIVE: Complaining of [...] kg/m? O2 Therapy: Room Air IANDO: Date 09/03/[address] - 09/04/1965809/04/[address] - 09/05/1965[address] Shift 6473-4076 8256-1209 9202-2583 24 Hour Total 9938-8068 6333-3299 3167-9681 24 Hour Total INTAKE IV 611 611 Volume (mL) (lactated ringers infusion) 511 511 Volume (mL) (magnesium sulfate in sterile water 4 g iv piggyback) 100 100 Shift Total 611 611 OUTPUT Urine 493 448 7358 Void (ml) 376 941 3451 Shift Total 271 174 8431 Weight (kg) 91.4 91.4 89.4 89.4 89.4 [...] lower extremity angiogram with partial occlusion R MICROELECTRONICS TECHNICIAN, reconstitution at R below knee pop, 2-vessel [...] ICU or 2174 [address]. Normal [facility] Phosphorus Bloodon 0 Phosphate [Mass/Vol] 2.2 mg/dL Low 2.5-4.9 [facility] Comment on above: Performed By: #### C _ANA #### [place] [address] THERAPY NTon 09-04-2019 THERAPY NT HNO ID: [id number] Author: Marilyn (Pt) Mark Service: Physical Therapy Author Type: Physical Therapist Type: Therapy (PT/OT/Speech/Resp) Filed: 09/04/2019 3:34 PM Note Text: PHYSICAL THERAPY MISSED VISIT SERVICE DATE: 09/04/2019 SERVICE TIME: 1532 to 1532 ROOM: [place] [address] Attempted Treatment. Patient not seen due to Declined. Patient reports he is extremely tired today and is having his procedure tomorrow. States he is not feeling up to it today despite encouragement. Educated patient that we will visit him after his procedure. SIGNATURE: Marilyn Flores PT PATIENT NAME: Elizabeth Modi DATE: September 04, 2019 TIME: 3:[address] [facility] ANES [place] 09-03-2019 ANES POST HNO ID: [id number] Author: Dwayne Kerns Service: Anesthesiology Author Type: Physician Type: Anesthesia PostOp Filed: 09/02/2019 11:44 PM Note Text: POST ANESTHESIA EVALUATION NOTE SERVICE DATE: 09/02/2019 SERVICE TIME: 11:44 PM : 1940 Vitals: 09/02/19 0502 09/02/19 0906 09/02/19 1500 09/02/19 1900 Temp: 36.8 ?C (98.2 ?F) 36.1 [...] 02, 2019 TIME: 11:44 PM PAGER/CONTACT #: [phone] [facility] Basic Panelon 09-03-2019 Creatinine [Mass/Vol] 0.90 mg/dL Normal 0.67-1.17 [facility] Comment on above: Result Comment: Use of this assay is not recommended for patients undergoing treatment with phenindione, due to the potential for falsely depressed results. Performed By: #### C BC1 #### [place] [address] Anion gap [Moles/Vol] 7 mmol/L Low 8-16 [facility] Comment on above: Performed By: #### C BC1 #### [facility] [address], [place] [address] Calcium [Mass/Vol] 7.9 mg/dL Low 8.5-10.1 [facility] Comment on above: Performed By: #### C BC1 #### [facility] [address], [place] [address] CO2 [Moles/Vol] 27 mmol/L Normal 21-32 [facility] Comment on above: Performed By: #### C BC1 #### [facility] [address], [place] [address] Glucose [Mass/Vol] 135 mg/dL High 70-99 [facility] Comment on above: Performed By: #### C BC1 #### [facility] [address] [place] [address] Urea nitrogen [Mass/Vol] 25 mg/dL High 7-18 [facility] Comment on above: Performed By: #### C BC1 #### [facility] [address], [place] [address] Chloride [Moles/Vol] 106 mmol/L Normal 98-107 [facility] Comment on above: Performed By: #### C BC1 #### [facility] [address], [place] [address] Potassium [Moles/Vol] 4.4 mmol/L Normal 3.5-5.1 [facility] Comment on above: Performed By: #### C BC1 #### [address] [address] Sodium [Moles/Vol] 136 mmol/L Normal 136-145 [facility] Comment on above: Performed By: #### C BC1 #### [facility] [address], [place] [address] CASE MANAGEMon 09-03-2019 CASE MANAGEM HNO ID: [id number] Author: Ammy (Rn) KAVIN Gutierres Service: ? [...] 03, 2019 TIME: 9:50 AM PAGER/CONTACT #: [phone] [facility] CONSULT PROGon 09-03-2019 CONSULT PROG HNO ID: [id number] Author: Doris Eden Service: Endocrinology Author Type: Physician Type: Consult Progress Note Filed: 09/03/2019 8:39 AM Note Text: ENDOCRINOLOGY CONSULT PROGRESS NOTE SERVICE DATE: 09/03/2019 SERVICE TIME: 8:05 AM Subjective INTERVAL HPI: Pt followed for diabetes mellitus type 2 with complications. Tr from [place]; adm for right foot infection and gangrene; [...] 2019 TIME: 8:39 AM PAGER: [phone] [facility] Hemogramon 09-03-2019 Erythrocyte distribution width (RBC) [Ratio] 15.4 % High 11.6-14.4 [facility] Comment on above: Performed By: #### M AG #### [address] [address] Hematocrit (Bld) [Volume fraction] 28.1 % Low 40.1-51.0 [facility] Comment on above: Performed By: #### M AG #### [address] [address] Hemoglobin (Bld) [Mass/Vol] 8.9 g/dL Low 13.7-17.5 [facility] Comment on above: Performed By: #### M AG #### [facility] [address], [place] [address] MCH (RBC) [Entitic mass] 29.1 pg Normal 25.7-32.2 [facility] Comment on above: Performed By: #### M AG #### [facility] [address] [place] [address] MCHC (RBC) [Mass/Vol] 31.7 % Low 32.3-36.5 [facility] Comment on above: Performed By: #### M AG #### [facility] [address] [place] [address] MCV (RBC) [Entitic vol] 91.8 fL Normal 83.2-95.6 [facility] Comment on above: Performed By: #### M AG #### [facility] [address] [place] [address] Platelet mean volume (Bld) [Entitic vol] 9.4 fL Normal 8.7-12.0 [facility] Comment on above: Performed By: #### M AG #### [facility] [address] [place] [address] Platelets (Bld) [#/Vol] 410 thou/cmm High 141-365 [facility] Comment on above: Performed By: #### M AG #### [place] [address] RBC (Bld) [#/Vol] 3.06 mil/cmm Low 4.63-6.08 [facility] Comment on above: Performed By: #### M AG #### [place] [address] RDW SD 48.7 fl High 36.1-45.8 [facility] Comment on above: Performed By: #### M AG #### [facility] [address] [place] [address] WBC (Bld) [#/Vol] 12.94 thou/cmm High 4.23-9.07 [facility] Comment on above: Performed By: #### M AG #### [place] [address] Magnesium Bloodon 09-03-2019 Magnesium [Mass/Vol] 1.4 mg/dL Low 1.6-2.6 [facility] Comment on above: Performed By: #### M AG #### [facility] [address], [place] [address] NURSING PROGon 09-03-2019 NURSING PROG HNO ID: [id number] Author: Kassidy Izquierdo) KAVIN Lew Service: Nursing Author Type: Registered Nurse Type: Nursing Progress Note Filed: 09/03/2019 11:57 AM Note Text: Nursing Progress Note Patient Name: Elizabeth Modi Patient Location: [place] [address] [address] __ Daily Note: 1047--report called to Darrin Chau RN. 1113--pt transferred to 4226 via chair on RA with Rn and Sr Tech. Pt remains in chair, chair locked, call light within reach, tele applied. KAVIN Chau in room. This note was completed by: Kassidy Lew RN [facility] PROGRESSon 09-03-2019 PROGRESS HNO ID: [id number] Author: Francine Roberts Service: Vascular Surgery Author [...] questions or concerns Mon-Fri 6a-5p please page [phone]. After 5pm and on Weekends and Holidays, please page [phone] if in ICU or [phone] if on RNF. Subjective SUBJECTIVE: SARATH. Says [...] kg/m? O2 Therapy: Room Air IANDO: Date 09/02/196[address] - 09/03/1965809/03/196[address] - 09/04/19 0659 Shift 3411-8440 0147-4684 1875-0054 24 Hour Total 5995-0874 4986-7437 9290-0966 24 Hour Total INTAKE Shift Total OUTPUT [...] lower extremity angiogram with partial occlusion R MICROELECTRONICS TECHNICIAN, reconstitution at R below knee pop, 2-vessel [...] then determination on AKA/BKA - transfer to [facility] today SIGNATURE: Francine Roberts MD PATIENT NAME: Elizabeth Modi DATE: September 03, 2019 TIME: 6:21 AM Vascular AND Thoracic Surgery Service Pager: For questions or concerns Mon-Mon 6a-5p please page [phone]. After 5pm and on Weekends and Holidays, please page [phone] if in ICU or [phone] [address] [facility] Phosphorus Bloodon 0 Phosphate [Mass/Vol] 2.9 mg/dL Normal 2.5-4.9 [facility] Comment on above: Performed By: #### P 8 #### [facility] [address] [place] [address] THERAPY NTon 09-03-2019 THERAPY NT HNO ID: [id number] Author: Tamiko SantiagoOtr/LSmitha Nur Service: Occupational Therapy Author Type: Occupational Therapist Type: Therapy (PT/OT/Speech/Resp) Filed: 09/03/2019 9:19 AM Note Text: Occupational Therapy Evaluation(Re-Evaluati on) SERVICE DATE: 09/03/2019 SERVICE TIME: 0845 to 0900 ROOM: [id number] Recommended Discharge Disposition: Acute Rehab Justification For [...] and signs-other Interventions Provided: Re-evaluation $ Reevaluation (56446) Billed Units: 1 unit Total Timed Code Treatment Minutes: 39 Total Treatment Time (minutes): 15 SUBJECTIVE: Current Hospital Course: Chart reviewed; R femoral endarterectomy 09/02/2019 Reason for Occupational Therapy Consult: MANAGER LINUX Relevant Past Medical History: thyroid, HTN, DM, claudication Patient Report: found supine, agreeable to session, moderate pain. "I am so glad I got to the chair." 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: real time operator Entry To Home: Stairs;With Rail Number Of [...] September 03, 2019 TIME: 9:[address] [facility] THERAPY NT HNO ID: [id number] Author: Marilyn (Pt) Mark Service: Physical Therapy Author Type: Physical Therapist Type: Therapy (PT/OT/Speech/Resp) Filed: 09/03/2019 9:12 AM Note Text: Physical Therapy Treatment SERVICE DATE: 09/03/2019 SERVICE TIME: 0830 to 0853 ROOM: [place] [address] Recommended Discharge Disposition: Acute Rehab Recommended Discharge [...] Weakness (generalized) Interventions Provided: Re-evaluation $ Reevaluation (66234) Billed Units: 1 unit Re-evaluation completed due to completion of R femoral endarterectomy Therapeutic Activity (54507) Treatment Minutes: 10 1 unit Skilled Intervention(s): [...] Environment Patient Lives With: Self/Alone Assistance Available: real time operator Entry To Home: Stairs;With Rail Number Of [...] evaluation/treatment. SIGNATURE: Marilyn Flores PT PATIENT NAME: lEizabeth Modi DATE: September 03, 2019 TIME: 9:[address] [facility] US ARTERIAL PVR LOWERon 08-17 US ARTERIAL PVR LOWER * * *Final Report* * * DATE OF EXAM: Sep 03 2019 11:07AM A2U 1107 - US ARTERIAL PVR LOWER / PROCEDURE REASON: s/p surgery * * * * Physician Interpretation * * * * Non-Invasive Vascular Laboratory [facility] Lower Extremity Arterial Physiology Study Bilateral/Complete Date of service/time: 09/03/2019 9:25:00 AM Name: ELIZABETH MODI Date of : 1940 Age: 79 years Gender: M Medical History Tobacco: Former PAD: Yes Hypertension: Yes Diabetes: Yes Clinical Indication Post operative right MICROELECTRONICS TECHNICIAN endarterectomy. TECHNIQUE -------- An arterial physiological examination [...] Left superficial femoral disease. Technologist: Wen Jorge RVT Ordering physician: FRANCINE ROBERTS Interpreting physician: Gordo Figueroa MD Final RP Maintainer Central Office: RICHARD [employer] Date/Time: Sep 03 2019 9:25A Dictated by : GORDO FIGUEROA MD This examination was interpreted and the report reviewed and electronically signed by: GORDO FIGUEROA MD on Sep 05 2019 9:48AM EST Normal [facility] US VEIN MAPPING LOWER BILon 09-03-2019 US VEIN MAPPING LOWER JIGNA * * *Final Rep ort* * * DATE OF EXAM: Sep 02 2019 10:07PM AKU 1081 - US VEIN MAPPING LOWER JIGNA / PROCEDURE REASON: [...] lower extremity. Superficial venous measurements as above. Maintainer Central Office: ONEL Transcribe Date/Time: Sep 02 2019 10:28P Dictated by : DWAYNE BURTON MD This examination was interpreted and the report reviewed and electronically signed by: DWAYNE BURTON MD on Sep 02 2019 10:38PM EST Normal [facility] ANES PREOPon 09-02-2019 ANES PREOP HNO ID: [id number] Author: Tammy Hinson Service: Anesthesiology Author Type: [...] HL, HTN, hypothyroidism ANES DOS/PREOP NOTE: Vitals: 09/01/197 09/02/19 0502 09/02/19 0600 09/02/19 0906 BP: (!) [...] Units SUBCUTANEOUS q 12 H Tom (Res) Kenyon, DO 5,000 Units at 09/01/192028 - [MAR Hold due to Transfer] ondansetron 4 mg tab(s) (ZOFRAN) 4 mg ORAL q 6 H PRN Tom (Res) Westthelma, DO Or - [MAR Hold due to Transfer] ondansetron (PF) 4 mg injection (ZOFRAN) 4 mg INTRAVENOUS q 6 H PRN Tom (Res) Kenyon, DO - [MAR Hold due to Transfer] polyethylene glycol 3350 17 g packet (MIRALAX, GLYCOLAX) 17 g ORAL DAILY PRN Tom (Res) Kenyon, DO - [MAR Hold due to Transfer] docusate sodium 100 mg cap(s) (COLACE) 100 mg ORAL BID PRN Tom (Res) Kenyon, DO - [MAR [...] (Res) Westthelma, DO 650 mg at 09/01/19 08 - [MAR Hold due to Transfer] atorvastatin [...] tab(s) (SYNTHROID) 25 mcg ORAL DAILY Tom (Res) Kenyon, 25 mcg at 09/02/19 0453 - [MAR Hold due to Transfer] dextrose 40 % 15 g 15 g ORAL PRN Tom (Res) Kenyon, Or - [MAR Hold due to Transfer] glucagon 1 mg injection (GLUCAGEN) 1 mg INTRAMUSCULAR PRN Tom (Res) Kenyon, Or - [MAR Hold due to Transfer] dextrose 50% in water 25 mL syringe 12.5 g INTRAVENOUS PRN Tom (Res) Kenyon, Allergies: ALLERGIES No Known Allergies DOS EXAM: [...] September 02, 2019 TIME: 9:50 AM CSN: [id number] [facility] BRIEF OP NOTon 09-02-2019 BRIEF OP NOT HNO ID: [id number] Author: Francine Roberts Service: Vascular Surgery Author [...] BRIEF OPERATIVE / PROCEDURE NOTE LOG ID: [id number] Patient Name:Elizabeth Modi CSN: [id number] Surgery/Procedure Date: 09/02/2019 Incision/Procedure Start Time: 11:01 AM Incision Close/Procedure End Time: Surgeon(s)/Procedurali st(s) and [facility] Associate Professor(s): Surgeon(s) and Role: * Jovanny Parmar - Primary * Francine Roberts - Resident - Assisting Porcelain [employer]ameling Supervisor: Lori Schmid SA Procedure(s): Procedure(s) (LRB): ENDARTERECTOMY FEMORAL (Right) Anesthesia: General ASA Class: Findings: occluded SFA, profunda patent at origin Estimated Blood Loss: 450 mls Specimens: None Complications: None * No complications entered in OR log * Pre-Op/Pre-Procedure Diagnosis: * No pre-op diagnosis entered * femoral artery stenosis, s/p amputation Post-Op/Post-Procedure Diagnosis: * No post-op diagnosis entered * same SIGNATURE: rFancine Roberts MD PATIENT NAME: Elizabeth Modi DATE: September 02, 2019 TIME: 12:47 PM PAGER/CONTACT #: [phone] [facility] Basic Panelon 09-02-2019 Creatinine [Mass/Vol] 0.78 mg/dL Normal 0.67-1.17 [facility] Comment on above: Result Comment: Use of this assay is not recommended for patients undergoing treatment with phenindione, due to the potential for falsely depressed results. Performed By: #### M AG #### [facility] [address], [place] [address] Anion gap [Moles/Vol] 12 mmol/L Normal 8-16 [facility] Comment on above: Performed By: #### M AG #### [facility] [address], [place] [address] Calcium [Mass/Vol] 8.4 mg/dL Low 8.5-10.1 [facility] Comment on above: Performed By: #### M AG #### [address] [address] CO2 [Moles/Vol] 24 mmol/L Normal 21-32 [facility] Comment on above: Performed By: #### M AG #### [address] [address] Urea nitrogen [Mass/Vol] 24 mg/dL High 7-18 [facility] Comment on above: Performed By: #### M AG #### [address] [address] Glucose [Mass/Vol] 148 mg/dL High 70-99 [facility] Comment on above: Performed By: #### M AG #### [address] [address] Chloride [Moles/Vol] 104 mmol/L Normal 98-107 [facility] Comment on above: Performed By: #### M AG #### [facility] [address], [place] [address] Potassium [Moles/Vol] 4.1 mmol/L Normal 3.5-5.1 [facility] Comment on above: Performed By: #### M AG #### [address] [address] Sodium [Moles/Vol] 136 mmol/L Normal 136-145 [facility] Comment on above: Performed By: #### M AG #### [facility] [address] [place] [address] CONSULT PROGon 09-02-2019 CONSULT PROG HNO ID: [id number] Author: Doris Eden Service: Endocrinology Author Type: Physician Type: Consult Progress Note Filed: 09/02/2019 1:35 PM Note Text: ENDOCRINOLOGY CONSULT PROGRESS NOTE SERVICE DATE: 09/02/2019 SERVICE TIME: 1:25 PM Subjective INTERVAL HPI: Pt followed for diabetes mellitus type 2 with complications. Tr from [place]; adm for right foot infection and gangrene; [...] 2019 TIME: 1:35 PM PAGER: [phone] [facility] Hemogramon 09-02-2019 Erythrocyte distribution width (RBC) [Ratio] 14.9 % High 11.6-14.4 [facility] Comment on above: Performed By: #### C BC1 #### [facility] [address] [place] [address] Hematocrit (Bld) [Volume fraction] 33.4 % Low 40.1-51.0 [facility] Comment on above: Performed By: #### C BC1 #### [facility] [address], [place] [address] Hemoglobin (Bld) [Mass/Vol] 10.3 g/dL Low 13.7-17.5 [facility] Comment on above: Performed By: #### C BC1 #### [facility] [address], [place] [address] MCH (RBC) [Entitic mass] 28.1 pg Normal 25.7-32.2 [facility] Comment on above: Performed By: #### C BC1 #### [facility] [address], [place] [address] MCHC (RBC) [Mass/Vol] 30.8 % Low 32.3-36.5 [facility] Comment on above: Performed By: #### C BC1 #### [facility] [address], [place] [address] MCV (RBC) [Entitic vol] 91.0 fL Normal 83.2-95.6 [facility] Comment on above: Performed By: #### C BC1 #### [facility] [address], [place] [address] Platelet mean volume (Bld) [Entitic vol] 9.7 fL Normal 8.7-12.0 [facility] Comment on above: Performed By: #### C BC1 #### [facility] [address] [place] [address] Platelets (Bld) [#/Vol] 425 thou/cmm High 141-365 [facility] Comment on above: Performed By: #### C BC1 #### [facility] [address] [place] [address] RBC (Bld) [#/Vol] 3.67 mil/cmm Low 4.63-6.08 [facility] Comment on above: Performed By: #### C BC1 #### [facility] [address] [place] [address] RDW SD 47.8 fl High 36.1-45.8 [facility] Comment on above: Performed By: #### C BC1 #### [facility] [address], [place] [address] WBC (Bld) [#/Vol] 9.66 thou/cmm High 4.23-9.07 [facility] Comment on above: Performed By: #### C BC1 #### [facility] [address] [place] [address] Magnesium Bloodon 09-02-2019 Magnesium [Mass/Vol] 1.5 mg/dL Low 1.6-2.6 [facility] Comment on above: Performed By: #### M AG #### [facility] [address] [place] [address] OPERATIVE NOon 09-02-2019 OPERATIVE NO HNO ID: [id number] Author: Jovanny Parmar Service: Vascular Surgery Author Type: Physician Type: Operative Report Filed: 09/30/2019 2:43 PM Note Text: [facility] - Operative Report ELIZABETH MODI : 1940 AGE: 79. SEX: M PATIENT TYPE: I HOSP SVC: KEENAN LOCATION: [id number] ATTENDING PHYSICIAN: JOVANNY PARMAR CSN NUMBER: [id number] DATE OF SURGERY/PROCEDURE: 09/02/2019 INCISION/PROCEDURE START TIME: 12:28 PM INCISION CLOSE/PROCEDURE END TIME: 2:14 PM PREOPERATIVE DIAGNOSIS: Gangrene, right lower extremity. POSTOPERATIVE DIAGNOSIS: Gangrene, right lower extremity. SURGEON: Jovanny Parmar MD QUALITY ASSURANCE SPECIALIST: Francine Roberts. SURGERY/PROCEDURE: Right femoral endarterectomy with [...] recovery in stable condition. Jovanny Parmar MD LM:[id number] /[id number] Normal [facility] PROGRESSon 09-02-2019 PROGRESS HNO ID: [id number] Author: Zack Jenkins Service: Hospital Medicine Author Type: Physician Type: Progress Notes Filed: 09/02/2019 5:22 PM Note Text: DEPARTMENT OF HOSPITAL MEDICINE PROGRESS NOTE SERVICE DATE: 09/02/2019 SERVICE TIME: 9am Hospital Medicine/Primary Attending: Zack Jenkins, DO NIGHT AND WEEKEND COVERAGE: After 7pm please page [phone] CHIEF COMPLAINT: No new complaints SUBJECTIVE: Pt [...] gangrene and necrosis POD #9?s/p amputation -Angio 08/26 showing partial occlusion R MICROELECTRONICS TECHNICIAN -Vascular and Ortho consults -Plan is for?endarterectomy [...] this note may have been generated using [employer] voice recognition software. Reasonable efforts were made to correct any dictation errors that resulted due to the programming of this software but some may still be present. Normal [facility] PROGRESS HNO ID: [id number] Author: Francine Roberts Service: Vascular Surgery Author [...] questions or concerns Mon-Fri 6a-5p please page [phone]. After 5pm and on Weekends and Holidays, please page [phone] if in ICU or [phone] if on [...] lower extremity angiogram with partial occlusion R MICROELECTRONICS TECHNICIAN, reconstitution at R below knee pop, 2-vessel [...] aspirin -?Further care per primary SIGNATURE: Francine Roebrts MD PATIENT NAME: Elizabeth Modi DATE: September 02, 2019 TIME: 6:21 AM Vascular AND Thoracic Surgery Service Pager: For questions or concerns Mon-Fri 6a-5p please page [phone]. After 5pm and on Weekends and Holidays, please page [phone] if in ICU or [phone] if on RNF. [facility] PT EDon 09-02-2019 PT ED HNO ID: [id number] Author: Chelsea (Rn) Shun Paz RN Service: [...] Estrella RN In Department: [place] SURGERY OR [facility] Phosphorus Bloodon 0 Phosphate [Mass/Vol] 2.9 mg/dL Normal 2.5-4.9 [facility] Comment on above: Performed By: #### P 8 #### [place] [address] CONSULT PROGon 09-01-2019 CONSULT PROG HNO ID: [id number] Author: Doris Eden Service: Endocrinology Author Type: Physician Type: Consult Progress Note Filed: 09/01/2019 9:12 AM Note Text: ENDOCRINOLOGY CONSULT PROGRESS NOTE SERVICE DATE: 09/01/2019 SERVICE TIME: 9:05 AM Subjective INTERVAL HPI: Pt followed for diabetes mellitus type 2 with complications. Tr from [place]; adm for right foot infection and gangrene; [...] 2019 TIME: 9:12 AM PAGER: [phone] [facility] Hemogramon 09-01-2019 Erythrocyte distribution width (RBC) [Ratio] 14.9 % High 11.6-14.4 [facility] Comment on above: Performed By: #### M AG #### [facility] [address] [place] [address] Hematocrit (Bld) [Volume fraction] 27.1 % Low 40.1-51.0 [facility] Comment on above: Performed By: #### M AG #### [facility] [address] [place] [address] Hemoglobin (Bld) [Mass/Vol] 8.5 g/dL Low 13.7-17.5 [facility] Comment on above: Performed By: #### M AG #### [place] [address] MCH (RBC) [Entitic mass] 28.1 pg Normal 25.7-32.2 [facility] Comment on above: Performed By: #### M AG #### [place] [address] MCHC (RBC) [Mass/Vol] 31.4 % Low 32.3-36.5 [facility] Comment on above: Performed By: #### M AG #### [place] [address] MCV (RBC) [Entitic vol] 89.7 fL Normal 83.2-95.6 [facility] Comment on above: Performed By: #### M AG #### [place] [address] Platelet mean volume (Bld) [Entitic vol] 9.4 fL Normal 8.7-12.0 [facility] Comment on above: Performed By: #### M AG #### [place] [id number] Platelets (Bld) [#/Vol] 334 thou/cmm Normal 141-365 [facility] Comment on above: Performed By: #### M AG #### [address], [place] [address] RBC (Bld) [#/Vol] 3.02 mil/cmm Low 4.63-6.08 [facility] Comment on above: Performed By: #### M AG #### [facility] [address], [place] [address] RDW SD 46.4 fl High 36.1-45.8 [facility] Comment on above: Performed By: #### M AG #### [facility] [address], [place] [address] WBC (Bld) [#/Vol] 7.69 thou/cmm Normal 4.23-9.07 [facility] Comment on above: Performed By: #### M AG #### [facility] [address], [place] [address] PROGRESSon 09-01-2019 PROGRESS HNO ID: [id number] Author: Zack Jenkins Service: Hospital Medicine Author Type: Physician Type: Progress Notes Filed: 09/01/2019 4:10 PM Note Text: DEPARTMENT OF HOSPITAL MEDICINE PROGRESS NOTE SERVICE DATE: 09/01/2019 SERVICE TIME: 4:07 PM Hospital Medicine/Primary Attending: Zack Jenkins, DO NIGHT AND WEEKEND COVERAGE: After 7pm please page [phone] CHIEF COMPLAINT: No new complaints SUBJECTIVE: Pt [...] amputation -Angio 08/26 showing partial occlusion R MICROELECTRONICS TECHNICIAN -Vascular and Ortho consults -Plan is for?endarterectomy [...] this note may have been generated using [employer] voice recognition software. Reasonable efforts were made to correct any dictation errors that resulted due to the programming of this software but some may still be present. Normal [facility] PROGRESS HNO ID: [id number] Author: Francine Roberts Service: Vascular Surgery Author [...] questions or concerns Mon-Fri 6a-5p please page [phone]. After 5pm and on Weekends and Holidays, please page [phone] if in ICU or [phone] if on RNF. Subjective SUBJECTIVE: NAEON. Denies [...] 0659 09/01/19 0700 - 09/02/19 0659 Shift 0572-6523 6309-7563 7145-4887 24 Hour Total 4674-7355 4336-4559 6720-8527 24 Hour Total INTAKE Shift Total OUTPUT [...] lower extremity angiogram with partial occlusion R MICROELECTRONICS TECHNICIAN, reconstitution at R below knee pop, 2-vessel [...] ICU or 2174 [address]. [address] [facility] THERAPY NTon 09-01-2019 THERAPY NT HNO ID: [id number] Author: Sheridan (Pt) Antwan Service: Physical Therapy Author Type: Physical Therapist Type: Therapy (PT/OT/Speech/Resp) Filed: 09/01/2019 4:02 PM Note Text: Physical Therapy Treatment SERVICE DATE: 09/01/2019 SERVICE TIME: 1520 to 1538 ROOM: [id number] Recommended Discharge Disposition: Acute Rehab Justification For [...] l;Muscle Weakness (generalized) Interventions Provided: Therapeutic Activity (30721) Therapeutic Activity (55404) Treatment Minutes: 18 1 unit Skilled Intervention(s): Functional mobility performed as described below. In EOB sitting for improved strength, ROM, conditioning, function: L ankle DF/PF, glute sets, LAQs, marching, abd/iso add, 2 x 10 reps each; instructed ex technique with short rest breaks needed. Pt education re: rehab process s/p amputation; practiced scooting along EOB for carryover to gmhtnxn-dz-lwttwrs transfers, pt education / cues for increased [...] Environment Patient Lives With: Self/Alone Assistance Available: real time operator Entry To Home: Stairs;With Rail Number Of [...] details for this therapy evaluation/treatment. SIGNATURE: Sheridan Moncada PT PATIENT NAME: Elizabeth Modi DATE: September 01, 2019 TIME: 3:[address] [facility] Basic Panelon 08-31-2019 Creatinine [Mass/Vol] 0.76 mg/dL Normal 0.67-1.17 [facility] Comment on above: Result Comment: Use of this assay is not recommended for patients undergoing treatment with phenindione, due to the potential for falsely depressed results. Performed By: #### C _ANA #### [place] [address] Anion gap [Moles/Vol] 11 mmol/L Normal 8-16 [facility] Comment on above: Performed By: #### C _ANA #### [address] [address] Calcium [Mass/Vol] 8.2 mg/dL Low 8.5-10.1 [facility] Comment on above: Performed By: #### C _ANA #### [address] [address] CO2 [Moles/Vol] 23 mmol/L Normal 21-32 [facility] Comment on above: Performed By: #### C _ANA #### [address] [address] Glucose [Mass/Vol] 85 mg/dL Normal 70-99 [facility] Comment on above: Performed By: #### C _ANA #### [address] [address] Urea nitrogen [Mass/Vol] 21 mg/dL High 7-18 [facility] Comment on above: Performed By: #### C _ANA #### [facility] [address], [place] [address] Chloride [Moles/Vol] 106 mmol/L Normal 98-107 [facility] Comment on above: Performed By: #### C _ANA #### [facility] [address], [place] [address] Potassium [Moles/Vol] 3.9 mmol/L Normal 3.5-5.1 [facility] Comment on above: Performed By: #### C _ANA #### [facility] [address] [place] [id number] Sodium [Moles/Vol] 136 mmol/L Normal 136-145 [facility] Comment on above: Performed By: #### C _ANA #### [facility] [address] [place] [address] CONSULT PROGon 08-31-2019 CONSULT PROG HNO ID: [id number] Author: Doris Eden Service: Endocrinology Author Type: Physician Type: Consult Progress Note Filed: 08/31/2019 8:08 AM Note Text: ENDOCRINOLOGY CONSULT PROGRESS NOTE SERVICE DATE: 08/31/2019 SERVICE TIME: 7:50 AM Subjective INTERVAL HPI: Pt followed for diabetes mellitus type 2 with complications. Tr from [place]; adm for right foot infection and gangrene; [...] 2019 TIME: 8:08 AM PAGER: [phone] [facility] Hemogramon 08-31-2019 Erythrocyte distribution width (RBC) [Ratio] 14.5 % High 11.6-14.4 [facility] Comment on above: Performed By: #### M AG #### [address] [address] Hematocrit (Bld) [Volume fraction] 31.2 % Low 40.1-51.0 [facility] Comment on above: Performed By: #### M AG #### [facility] [address] [place] [address] Hemoglobin (Bld) [Mass/Vol] 10.0 g/dL Low 13.7-17.5 [facility] Comment on above: Performed By: #### M AG #### [facility] [address] [place] [address] MCH (RBC) [Entitic mass] 28.7 pg Normal 25.7-32.2 [facility] Comment on above: Performed By: #### M AG #### [facility] [address] [place] [address] MCHC (RBC) [Mass/Vol] 32.1 % Low 32.3-36.5 [facility] Comment on above: Performed By: #### M AG #### [place] [address] MCV (RBC) [Entitic vol] 89.4 fL Normal 83.2-95.6 [facility] Comment on above: Performed By: #### M AG #### [place] [address] Platelet mean volume (Bld) [Entitic vol] 9.4 fL Normal 8.7-12.0 [facility] Comment on above: Performed By: #### M AG #### [place] [address] Platelets (Bld) [#/Vol] 385 thou/cmm High 141-365 [facility] Comment on above: Performed By: #### M AG #### [facility] [address] [place] [address] RBC (Bld) [#/Vol] 3.49 mil/cmm Low 4.63-6.08 [facility] Comment on above: Performed By: #### M AG #### [place] [address] RDW SD 45.1 fl Normal 36.1-45.8 [facility] Comment on above: Performed By: #### M AG #### [facility] [address], [place] [address] WBC (Bld) [#/Vol] 8.81 thou/cmm Normal 4.23-9.07 [facility] Comment on above: Performed By: #### M AG #### [facility] [address], [place] [address] Magnesium Bloodon 08-31-2019 Magnesium [Mass/Vol] 1.1 mg/dL Low 1.6-2.6 [facility] Comment on above: Performed By: #### M AG #### [facility] [address], [place] [address] PROGRESSon 08-31-2019 PROGRESS HNO ID: [id number] Author: Zack Jenkins Service: Hospital Medicine Author Type: Physician Type: Progress Notes Filed: 08/31/2019 4:57 PM Note Text: DEPARTMENT OF HOSPITAL MEDICINE PROGRESS NOTE SERVICE DATE: 08/31/2019 SERVICE TIME: 4:53 PM Hospital Medicine/Primary Attending: Zack Jenkins, NIGHT AND WEEKEND COVERAGE: After 7pm please page [phone] CHIEF COMPLAINT: no new complaints SUBJECTIVE: Pt [...] CREAT 0.76 GLUC 85 CMP: Recent Labs 08/31/19 0420 NA 136 K [...] the last 24 hours. MG/PHOS: Recent Labs 08/31/19 0420 MG 1.1* P 3.3 Renal Panel: Recent Labs 08/31/19 0420 CREAT 0.76 BUN 21* GLUC 85 CA 8.2* P 3.3 CHLOR 106 K 3.9 CO2 23 NA 136 Heme: No results for input(s): RETICP, ABSRETIC, LD, STEPHAN, FE, TIBC, TRANSFERSAT in the last 24 hours. 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 ? Disposition:?Home with [facility]?pending progress and surgery? Plan of care discussed with: Provider, RN, Patient SIGNATURE: Zack Jenkins DO PATIENT NAME: Elizabeth Modi DATE: August 31, 2019 TIME: 4:53 PM PAGER/CONTACT #: Team color pager Disclaimer: Portions of this note may have been generated using [employer] voice recognition software. Reasonable efforts were made to correct any dictation errors that resulted due to the programming of this software but some may still be present. Normal [facility] PROGRESS HNO ID: [id number] Author: Francine Roberts Service: Vascular Surgery Author [...] questions or concerns Mon-Fri 6a-5p please page [phone]. After 5pm and on Weekends and Holidays, please page [phone] if in ICU or [phone] if on RNF. Subjective SUBJECTIVE: NAEON. Denies [...] 0659 08/31/19 07 - 09/01/19 0659 Shift 6435-2902 6003-6576 7477-4401 24 Hour Total 9597-6393 3525-8321 4201-8744 24 Hour Total INTAKE Shift Total OUTPUT Urine 500 617 057 9694 Void (ml) 500 795 926 5913 # of BMs Number of BMs 1 x 1 x Shift Total 500 395 392 1777 Weight (kg) 90.9 90.9 89.6 89.6 89.6 [...] on 08/27/2019 - showing partial occlusion R MICROELECTRONICS TECHNICIAN - Right femoral endarterectomy on Monday, then determination on [facility] following that procedure - consent obtained, OK [...] ICU or 2174 if on RNF. Normal [facility] Phosphorus Bloodon 0 Phosphate [Mass/Vol] 3.3 mg/dL Normal 2.5-4.9 [facility] Comment on above: Performed By: #### C BC1 #### [place] [address] Basic Panelon 08-30-2019 Creatinine [Mass/Vol] 0.80 mg/dL Normal 0.67-1.17 [facility] Comment on above: Result Comment: Use of this assay is not recommended for patients undergoing treatment with phenindione, due to the potential for falsely depressed results. Performed By: #### M AG #### [facility] [address], [place] [address] Anion gap [Moles/Vol] 12 mmol/L Normal 8-16 [facility] Comment on above: Performed By: #### M AG #### [facility] [address], [place] [address] Calcium [Mass/Vol] 7.7 mg/dL Low 8.5-10.1 [facility] Comment on above: Performed By: #### M AG #### [facility] [address], [place] [address] CO2 [Moles/Vol] 24 mmol/L Normal 21-32 [facility] Comment on above: Performed By: #### M AG #### [facility] [address], [place] [address] Glucose [Mass/Vol] 70 mg/dL Normal 70-99 [facility] Comment on above: Performed By: #### M AG #### [address] [address] Urea nitrogen [Mass/Vol] 16 mg/dL Normal 7-18 [facility] Comment on above: Performed By: #### M AG #### [address] [address] Chloride [Moles/Vol] 106 mmol/L Normal 98-107 [facility] Comment on above: Performed By: #### M AG #### [address] [address] Potassium [Moles/Vol] 4.0 mmol/L Normal 3.5-5.1 [facility] Comment on above: Performed By: #### M AG #### [address] [address] Sodium [Moles/Vol] 138 mmol/L Normal 136-145 [facility] Comment on above: Performed By: #### M AG #### [address] [address] CONSULT PROGon 08-30-2019 CONSULT PROG HNO ID: [id number] Author: Doris Eden Service: Endocrinology Author Type: Physician Type: Consult Progress Note Filed: 08/30/2019 8:57 AM Note Text: ENDOCRINOLOGY CONSULT PROGRESS NOTE SERVICE DATE: 08/30/2019 SERVICE TIME: 8:45 AM Subjective INTERVAL HPI: Pt followed for diabetes mellitus type 2 with complications. Tr from [place]; adm for right foot infection and gangrene; [...] 2019 TIME: 8:57 AM PAGER: [phone] [facility] Hemogramon 08-30-2019 Erythrocyte distribution width (RBC) [Ratio] 14.1 % Normal 11.6-14.4 [facility] Comment on above: Performed By: #### C BC1 #### [place] [address] Hematocrit (Bld) [Volume fraction] 28.8 % Low 40.1-51.0 [facility] Comment on above: Performed By: #### C BC1 #### [place] [address] Hemoglobin (Bld) [Mass/Vol] 9.0 g/dL Low 13.7-17.5 [facility] Comment on above: Performed By: #### C BC1 #### [place] [address] MCH (RBC) [Entitic mass] 28.3 pg Normal 25.7-32.2 [facility] Comment on above: Performed By: #### C BC1 #### [place] [address] MCHC (RBC) [Mass/Vol] 31.3 % Low 32.3-36.5 [facility] Comment on above: Performed By: #### C BC1 #### [place] [address] MCV (RBC) [Entitic vol] 90.6 fL Normal 83.2-95.6 [facility] Comment on above: Performed By: #### C BC1 #### [place] [address] Platelet mean volume (Bld) [Entitic vol] 9.7 fL Normal 8.7-12.0 [facility] Comment on above: Performed By: #### C BC1 #### [facility] [address] [place] [id number] Platelets (Bld) [#/Vol] 388 thou/cmm High 141-365 [facility] Comment on above: Performed By: #### C BC1 #### [facility] [address] [place] [address] RBC (Bld) [#/Vol] 3.18 mil/cmm Low 4.63-6.08 [facility] Comment on above: Performed By: #### C BC1 #### [facility] [address] [place] [address] RDW SD 44.2 fl Normal 36.1-45.8 [facility] Comment on above: Performed By: #### C BC1 #### [facility] [address] [place] [address] WBC (Bld) [#/Vol] 9.52 thou/cmm High 4.23-9.07 [facility] Comment on above: Performed By: #### C BC1 #### [facility] [address] [place] [address] NUTRITIONon 08-30-2019 NUTRITION HNO ID: [id number] Author: Snow Serna Service: Nutrition Therapy Author Type: Registered Dietitian Type: Nutrition Filed: 08/30/2019 1:41 PM Note Text: NUTRITION THERAPY PROGRESS NOTE SERVICE DATE: 08/30/2019 SERVICE TIME: 11:33 AM Nutrition Assessment: Recommended Malnutrition Diagnosis: Moderate Protein-Calorie Malnutrition (08/22/19 1436 : Keturah (Tank Washer) Valery) Estimated kilocalorie needs: 8517-0399 Calorie Calculation Method: 30-35 kcals/kg Estimated protein [...] August 30, 2019 TIME: 11:33 AM PAGER: [phone] 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 ? Disposition:?Home with [facility]?pending progress and surgery? Plan of care discussed with: Provider, RN, Patient SIGNATURE: Zack Jenkins DO PATIENT NAME: Elizabeth Modi DATE: August 30, 2019 TIME: 5:24 PM PAGER/CONTACT #: Team color pager Disclaimer: Portions of this note may have been generated using [employer]vin[employer] voice recognition software. Reasonable efforts were made to correct any dictation errors that resulted due to the programming of this software but some may still be present. Normal [facility] PROGRESS HNO ID: [id number] Author: Francine Roberts Service: General Surgery Author [...] or [phone] if on RNF. Subjective SUBJECTIVE: Mr. Modi [...] kg/m? O2 Therapy: Room Air IANDO: Date 08/29/19 07 - 08/30/19 0659 08/30/19 07 - 08/31/19 0659 Shift 7885-4802 7904-2818 9125-6880 24 Hour Total 8171-2626 8623-4358 5427-7324 24 Hour Total INTAKE IV 1100 1100 [...] on 08/27/2019 - showing partial occlusion R MICROELECTRONICS TECHNICIAN - Endarterectomy on Monday, then determination on [...] questions or concerns Mon-Fri 6a-5p please page [phone]. After 5pm and on Weekends and Holidays, please page [phone] if in ICU or [phone] if on RNF. Normal [facility] THERAPY NTon 08-30-2019 THERAPY NT HNO ID: [id number] Author: Tanja (Pt) Hoda Service: Physical Therapy Author Type: Physical Therapist Type: Therapy (PT/OT/Speech/Resp) Filed: 08/30/2019 5:00 PM Note Text: Physical Therapy Treatment SERVICE DATE: 08/30/2019 SERVICE TIME: 1415 to 1500 ROOM: [place] [address] Recommended Discharge Disposition: Acute Rehab Recommended Discharge [...] l;Muscle Weakness (generalized) Interventions Provided: Therapeutic Exercise (14812);Therapeutic Activity (65906) Therapeutic Exercise (95510) Treatment Minutes: 25 2 units Skilled Intervention(s): Patient completed general strengthening exercises in supine, sitting (ankle pump, quad set, gluteal set, heel slide, hip abd/add, straight leg raise, long arc quad, short arc quad, hip adductor squeeze, assisted bridging) x 15-20 reps bilateral lower extremity, with min assist, with min verbal/tactile cues for optimal muscle recruitment, muscle activation, and muscle strengthening. Therapeutic Activity (89253) Treatment Minutes: 15 1 unit Skilled Intervention(s): [...] Environment Patient Lives With: Self/Alone Assistance Available: real time operator Entry To Home: Stairs;With Rail Number Of [...] August 30, 2019 TIME: 4:[address] [facility] Basic Panelon 08-29-2019 Creatinine [Mass/Vol] 0.80 mg/dL Normal 0.67-1.17 [facility] Comment on above: Result Comment: Use of this assay is not recommended for patients undergoing treatment with phenindione, due to the potential for falsely depressed results. Performed By: #### C _ANA #### [place] [address] Anion gap [Moles/Vol] 9 mmol/L Normal 8-16 [facility] Comment on above: Performed By: #### C _ANA #### [place] [address] CO2 [Moles/Vol] 27 mmol/L Normal 21-32 [facility] Comment on above: Performed By: #### C _ANA #### [place] [address] Glucose [Mass/Vol] 83 mg/dL Normal 70-99 [facility] Comment on above: Performed By: #### C _ANA #### [facility] [address] [place] [address] Urea nitrogen [Mass/Vol] 14 mg/dL Normal 7-18 [facility] Comment on above: Performed By: #### C _ANA #### [facility] [address] [place] [address] Calcium [Mass/Vol] 7.9 mg/dL Low 8.5-10.1 [facility] Comment on above: Performed By: #### C _ANA #### [facility] [address] [place] [address] Chloride [Moles/Vol] 106 mmol/L Normal 98-107 [facility] Comment on above: Performed By: #### C _ANA #### [facility] [address] [place] [address] Potassium [Moles/Vol] 4.0 mmol/L Normal 3.5-5.1 [facility] Comment on above: Performed By: #### C _ANA #### [facility] [address] [place] [address] Sodium [Moles/Vol] 138 mmol/L Normal 136-145 [facility] Comment on above: Performed By: #### C _ANA #### [facility] [address] [place] [address] CASE MANAGEMon 08-29-2019 CASE MANAGEM HNO ID: [id number] Author: Tami Patricio RN Service: Care Management Author Type: Registered Nurse Type: Care Mgt Progress Note Filed: 08/29/2019 11:27 AM Note Text: CARE MANAGEMENT PROGRESS NOTE SERVICE DATE: 08/29/2019 SERVICE TIME: 11:27 AM LOS: 8 days Chart reviewed. 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 Referral to [facility]- pt will need precert. Will follow clinical progress. SIGNATURE: Tami Patricio RN PATIENT NAME: Elizabeth Modi DATE: August 29, 2019 TIME: 11:27 AM PAGER/CONTACT #: [phone] [facility] CONSULT PROGon 08-29-2019 CONSULT PROG HNO ID: [id number] Author: Luke Briones (Gurwinder) Sailaja Service: Wound/Ostomy Author Type: Nurse Practitioner Type: Consult Progress Note Filed: 08/29/2019 3:36 PM Note Text: WOUND CARE CONSULT SENIOR CONSUMER INSIGHTS CONSULTANT NOTE SERVICE DATE: 08/29/2019 SERVICE TIME: 14:45 TIME SPENT (minutes): 30 REASON FOR CONSULT: Reevaluation of right leg wounds and overall skin check. CHIEF COMPLAINT: Recent surgery to right leg with more coming on Monday Subjective HISTORY OF PRESENT ILLNESS: Mr. Modi is a 79 year old male who is seen today with Leila Goel, Wound/investigations director, and presented to hospital with complaints of [...] on Monday09/02/19 for right femoral endartectomy. Obtained [employer] heel boot for patient's left heel and seat cushion. Will order patient [id number] mattress and turn and reposition every 2 hours or more often. A photo was taken of the patient's wound(s). Photos can be found under the Get Images tab on [employer]. Photos are uploaded by the wound caretaker resort and may not be immediately available for viewing. Contact the wound and ostomy care department with questions. SIGNATURE: Luke Menard APRN.TECHNICAL ENGINEER,CWOCN PATIENT NAME: Elizabeth Modi DATE: August 29, 2019 TIME: 3:23 PM CONTACT#: [id number] [facility] CONSULT PROG HNO ID: [id number] Author: Doris Eden Service: Endocrinology Author Type: Physician Type: Consult Progress Note Filed: 08/29/2019 8:38 AM Note Text: ENDOCRINOLOGY CONSULT PROGRESS NOTE SERVICE DATE: 08/29/2019 SERVICE TIME: 8:25 AM Subjective INTERVAL HPI: Pt followed for diabetes mellitus type 2 with complications. Tr from [place]; adm for right foot infection and gangrene; [...] 2019 TIME: 8:38 AM PAGER: [phone] [facility] Hemogramon 08-29-2019 Erythrocyte distribution width (RBC) [Ratio] 14.1 % Normal 11.6-14.4 [facility] Comment on above: Performed By: #### F ERR #### [facility] [address] [place], [place] [address] Hematocrit (Bld) [Volume fraction] 27.5 % Low 40.1-51.0 [facility] Comment on above: Performed By: #### F ERR #### [facility] [address] [place], [place] [address] Hemoglobin (Bld) [Mass/Vol] 8.8 g/dL Low 13.7-17.5 [facility] Comment on above: Performed By: #### F ERR #### [facility] [address] [place] [address] MCH (RBC) [Entitic mass] 29.0 pg Normal 25.7-32.2 [facility] Comment on above: Performed By: #### F ERR #### [facility] [address] [place] [address] MCHC (RBC) [Mass/Vol] 32.0 % Low 32.3-36.5 [facility] Comment on above: Performed By: #### F ERR #### [facility] [address] [place] [address] MCV (RBC) [Entitic vol] 90.8 fL Normal 83.2-95.6 [facility] Comment on above: Performed By: #### F ERR #### [facility] [address] [place], [place] [address] Nucleated RBC (Bld) [#/Vol] 0.02 thou/cmm High 0.00-0.01 [facility] Comment on above: Performed By: #### F ERR #### [facility] [address] [place], [place] [address] Nucleated RBC/100 WBC (Bld) [Ratio] 0.2 % Normal 0.0-0.2 [facility] Comment on above: Performed By: #### F ERR #### [facility] [address] [place], [place] [address] Platelet mean volume (Bld) [Entitic vol] 9.5 fL Normal 8.7-12.0 [facility] Comment on above: Performed By: #### F ERR #### [facility] [address], [place] [address] Platelets (Bld) [#/Vol] 430 thou/cmm High 141-365 [facility] Comment on above: Performed By: #### F ERR #### [facility] [address] [place], [place] [address] RBC (Bld) [#/Vol] 3.03 mil/cmm Low 4.63-6.08 [facility] Comment on above: Performed By: #### F ERR #### [facility] [address] [place], [place] [address] RDW SD 45.0 fl Normal 36.1-45.8 [facility] Comment on above: Performed By: #### F ERR #### [facility] [address] [place], [place] [address] WBC (Bld) [#/Vol] 10.45 thou/cmm High 4.23-9.07 [facility] Comment on above: Performed By: #### F ERR #### [facility] [address] [place], [place] [address] Magnesium Bloodon 08-29-2019 Magnesium [Mass/Vol] 1.6 mg/dL Normal 1.6-2.6 [facility] Comment on above: Performed By: #### M AG #### 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 Disposition: Home with [facility] pending progress and surgery Plan of care discussed with: Provider, RN, Patient SIGNATURE: Zack eJnkins DO PATIENT NAME: Elizabeth Modi DATE: August 29, 2019 TIME: 5:56 PM PAGER/CONTACT #: Team color pager Disclaimer: Portions of this note may have been generated using [employer] voice recognition software. Reasonable efforts were made to correct any dictation errors that resulted due to the programming of this software but some may still be present. Normal [facility] PROGRESS HNO ID: [id number] Author: Tom Prescott DO Service: General Surgery [...] questions or concerns Mon-Mon 6a-5p please page [phone]. After 5pm and on Weekends and Holidays, [...] 08/28/[address] - 08/29/1965808/29/196[address] - 08/30/19 0659 Shift 0011-1949 1807-2447 3728-0445 24 Hour Total 1262-2580 6482-7958 1490-9425 24 Hour Total INTAKE Shift Total OUTPUT [...] able, out of bed to chair - SQH - Further care per primary Assessment and plan discussed with attending Tom Prescott DO, MBA PGY-1 General Surgery Resident 08/29/2019 10:01 AM Pager below: Vascular AND Thoracic Surgery Service Pager: For questions or concerns Mon-Fri 6a-5p please page [phone]. After 5pm and on Weekends and Holidays, please page [phone] if in ICU or [phone] if on RNF. Normal [facility] THERAPY NTon 08-29-2019 THERAPY NT HNO ID: [id number] Author: Tanja (Pt) Hoda Service: Physical Therapy Author Type: Physical Therapist Type: Therapy (PT/OT/Speech/Resp) Filed: 08/29/2019 3:21 PM Note Text: Physical Therapy Treatment SERVICE DATE: 08/29/2019 SERVICE TIME: 1138 to 1208 ROOM: [place] [address] Recommended Discharge Disposition: Acute Rehab Recommended Discharge [...] l;Muscle Weakness (generalized) Interventions Provided: Therapeutic Exercise (18445);Therapeutic Activity (86741) Therapeutic Exercise (87962) Treatment Minutes: 15 1 unit Skilled Intervention(s): [...] extremity general strengthening therapeutic exercise. Therapeutic Activity (16135) Treatment Minutes: 10 1 unit Skilled Intervention(s): [...] Environment Patient Lives With: Self/Alone Assistance Available: real time operator Entry To Home: Stairs;With Rail Number Of [...] August 29, 2019 TIME: 3:[address] [facility] Basic Panelon 08-28-2019 Creatinine [Mass/Vol] 0.91 mg/dL Normal 0.67-1.17 [facility] Comment on above: Result Comment: Use of this assay is not recommended for patients undergoing treatment with phenindione, due to the potential for falsely depressed results. Performed By: #### C _ANA #### [place] [address] Anion gap [Moles/Vol] 10 mmol/L Normal 8-16 [facility] Comment on above: Performed By: #### C _ANA #### [address] [address] CO2 [Moles/Vol] 27 mmol/L Normal 21-32 [facility] Comment on above: Performed By: #### C _ANA #### [address] [address] Urea nitrogen [Mass/Vol] 14 mg/dL Normal 7-18 [facility] Comment on above: Performed By: #### C _ANA #### [facility] [address], [place] [address] Calcium [Mass/Vol] 7.5 mg/dL Low 8.5-10.1 [facility] Comment on above: Performed By: #### C _ANA #### [facility] [address] [place], [place] [address] Glucose [Mass/Vol] 108 mg/dL High 70-99 [facility] Comment on above: Performed By: #### C _ANA #### [facility] [address] [place] [address] Chloride [Moles/Vol] 105 mmol/L Normal 98-107 [facility] Comment on above: Performed By: #### C _ANA #### [facility] [address] [place] [address] Potassium [Moles/Vol] 4.1 mmol/L Normal 3.5-5.1 [facility] Comment on above: Performed By: #### C _ANA #### [facility] [address] [place] [address] Sodium [Moles/Vol] 138 mmol/L Normal 136-145 [facility] Comment on above: Performed By: #### C _ANA #### [facility] [address] [place] [address] CASE MANAGEMon 08-28-2019 CASE MANAGEM HNO ID: [id number] Author: Tami Patricio RN Service: Care Management Author Type: Registered Nurse Type: Care Mgt Progress Note Filed: 08/28/2019 1:57 PM Note Text: CARE MANAGEMENT PROGRESS NOTE SERVICE DATE: 08/28/2019 SERVICE TIME: 1:56 PM LOS: 7 days Chart reviewed. 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 Referral to [facility]- pt will need precert. Will follow clinical progress. SIGNATURE: Tami Patricio RN PATIENT NAME: Elizabeth Modi DATE: August 28, 2019 TIME: 1:56 PM PAGER/CONTACT #: [phone] [facility] CONSULT PROGon 08-28-2019 CONSULT PROG HNO ID: [id number] Author: Doris Eden Service: Endocrinology Author Type: Physician Type: Consult Progress Note Filed: 08/28/2019 8:31 AM Note Text: ENDOCRINOLOGY CONSULT PROGRESS NOTE SERVICE DATE: 08/28/2019 SERVICE TIME: 8:15 AM Subjective INTERVAL HPI: Pt followed for diabetes mellitus type 2 with complications. 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 Hemogram/Diffon 08-28-2019 Abs Immature Grans 0.21 thou/cmm High 0.00-0.05 [facility] Comment on above: Performed By: #### G LMET #### [place] [address] Abs Neut (ANC) 7.25 thou/cmm High 1.78-5.38 [facility] Comment on above: Performed By: #### G LMET #### [place] [address] Abs. Baso 0.02 thou/cmm Normal 0.01-0.08 [facility] Comment on above: Performed By: #### G LMET #### [place] [address] Abs. [place] 0.96 thou/cmm High 0.30-0.82 [facility] Comment on above: Performed By: #### G LMET #### [place] [address] Basophils/100 WBC (Bld) 0.2 % Normal [facility] Comment on above: Performed By: #### G LMET #### [place] [address] Eosinophils (Bld) [#/Vol] 0.16 thou/cmm Normal 0.04-0. 54 [facility] Comment on above: Performed By: #### G LMET #### [place] [address] Eosinophils/100 WBC (Bld) 1.5 % Normal [facility] Comment on above: Performed By: #### G LMET #### [place] [address] Erythrocyte distribution width (RBC) [Ratio] 13.4 % Normal 11.6-14.4 [facility] Comment on above: Performed By: #### G LMET #### [facility] [address] [place] [address] Hematocrit (Bld) [Volume fraction] 29.8 % Low 40.1-51.0 [facility] Comment on above: Performed By: #### G LMET #### [facility] [address] [place] [address] Hemoglobin (Bld) [Mass/Vol] 9.5 g/dL Low 13.7-17.5 [facility] Comment on above: Performed By: #### G LMET #### [facility] [address] [place] [address] Immature Grans 2.00 % Normal [facility] Comment on above: Performed By: #### G LMET #### [facility] [address] [place] [address] Lymphocytes (Bld) [#/Vol] 1.82 thou/cmm Normal 0.84-2. 85 [facility] Comment on above: Performed By: #### G LMET #### [facility] [address] [place] [address] Lymphocytes/100 WBC (Bld) 17.5 % Normal [facility] Comment on above: Performed By: #### G LMET #### [facility] [address] [place] [address] MCH (RBC) [Entitic mass] 28.4 pg Normal 25.7-32.2 [facility] Comment on above: Performed By: #### G LMET #### [facility] [address] [place] [address] MCHC (RBC) [Mass/Vol] 31.9 % Low 32.3-36.5 [facility] Comment on above: Performed By: #### G LMET #### [facility] [address] [place] [address] MCV (RBC) [Entitic vol] 89.2 fL Normal 83.2-95.6 [facility] Comment on above: Performed By: #### G LMET #### [facility] [address] [place], [place] [address] Monocytes/100 WBC (Bld) 9.2 % Normal [facility] Comment on above: Performed By: #### G LMET #### [facility] [address] [place], [place] [address] Platelet mean volume (Bld) [Entitic vol] 9.6 fL Normal 8.7-12.0 [facility] Comment on above: Performed By: #### G LMET #### [facility] [address] [place], [place] [address] Platelets (Bld) [#/Vol] 390 thou/cmm High 141-365 [facility] Comment on above: Performed By: #### G LMET #### [facility] [address] [place] [address] RBC (Bld) [#/Vol] 3.34 mil/cmm Low 4.63-6.08 [facility] Comment on above: Performed By: #### G LMET #### [facility] [address] [place] [address] RDW SD 43.3 fl Normal 36.1-45.8 [facility] Comment on above: Performed By: #### G LMET #### [facility] [address] [place], [place] [address] Seg Neutrophil 69.6 % Normal [facility] Comment on above: Performed By: #### G LMET #### [address] [address] WBC (Bld) [#/Vol] 10.42 thou/cmm High 4.23-9.07 [facility] Comment on above: Performed By: #### G LMET #### [facility] [address] [place], [place] [address] Magnesium Bloodon 08-28-2019 Magnesium [Mass/Vol] 1.1 mg/dL Low 1.6-2.6 [facility] Comment on above: Performed By: #### F ERR #### [place] [address] NM CARDIAC PERF STRESS/PHARM on 08-28-2019 NM CARDIAC PERF STRESS/PHARM * * *Final Report* * * DATE OF EXAM: Aug 28 2019 9:30AM [facility] 0006 - NM CARDIAC PERF STRESS/PHARM / [...] 60 minutes later. See administered doses below. [facility] Date of service: 08/28/2019 9:30:00 AM Indication: [...] during test. Final ------ Stress ECG Report: [facility] Date of service: 08/28/2019 9:30:00 AM Ordering physician: GOLD Estes Specialist: Tawana Larson [facility] Associate Professor: Libertad Rose Stress ECG interpreting physician: Shira [...] for age. The double product achieved was [address]. Peak heart rate was 98 bpm and [...] index (CRI): 0.51 Rate Pressure Product (RPP): 31152 Reason for test termination: End of Protocol. [...] chest sx during test Final ------ Stress Layer Out Plate Glass Report: [facility] Date of service: 08/28/2019 9:30:00 AM Supervising physician: Shira Zuleta MD PATIENT: Name: ELIZABETH MODI Age: 79 years Gender: M The supervising physician was present during the stress procedure. Final Maintainer Central Office: RICHARD Transcribe Date/Time: Aug 28 2019 9:30A Dictated by : IGNACIA MENDEZ MD This examination was interpreted and the report reviewed and electronically signed by: IGNACIA MENDEZ MD on Aug 28 2019 3:54PM EST Normal [facility] NURSING PROGon 08-28-2019 NURSING PROG HNO ID: [id number] Author: Tawana (Rn) KAVIN Larson Service: Cardiovascular Testing Author Type: Registered Nurse Type: Nursing Progress Note Filed: 08/28/2019 2:58 PM Note Text: Dr Zuleta notified of labs prior to testing.Lexiscan Nuclear Stress Test procedure explained. Patient verbalized understanding and test completed with post nuclear scan to follow. Normal [facility] OPERATIVE NOon 08-28-2019 OPERATIVE NO HNO ID: [id number] Author: Jovanny Parmar Service: Vascular Surgery Author Type: Physician Type: Operative Report Filed: 08/29/2019 3:01 PM Note Text: [facility] - Operative Report ELIZABETH MODI : 1940 AGE: 79. SEX: M PATIENT TYPE: I HOSP SVC: INTM LOCATION: [id number] ATTENDING PHYSICIAN: Jovanny Parmar MD CSN NUMBER: [id number] DATE OF SURGERY/PROCEDURE: 08/27/2019 INCISION/PROCEDURE START TIME: 10:01 AM INCISION CLOSE/PROCEDURE END TIME: 10:55 AM PREOPERATIVE DIAGNOSIS: Gangrene. POSTOPERATIVE DIAGNOSIS: Gangrene. SURGEON: Jovanny Parmar MD QUALITY ASSURANCE SPECIALIST: Tom Prescott. SURGERY/PROCEDURE: Angiogram with bilateral lower [...] serially upsized using Seldinger technique through a 5-Occitan sheath and Omni Flush catheter. Aortogram was [...] Recovery in stable condition. Jovanny Parmar MD LM:[id number] /[id number] [facility] PROGRESSon 08-28-2019 PROGRESS HNO ID: [id number] Author: Zack Jenkins Service: Hospital Medicine Author Type: Physician Type: Progress Notes Filed: 08/28/2019 6:10 PM Note Text: DEPARTMENT OF HOSPITAL MEDICINE PROGRESS NOTE SERVICE DATE: 08/28/2019 SERVICE TIME: 6:05 PM Hospital Medicine/Primary Attending: Zack Fetsko, DO NIGHT AND WEEKEND COVERAGE: After 7pm please page [phone] CHIEF COMPLAINT: No new complaints SUBJECTIVE: Pt [...] amputation -Angio 08/26 showing partial occlusion R MICROELECTRONICS TECHNICIAN -Vascular and Ortho consults -Plan is for [...] units Sub Q BID Disposition: Home with [facility] pending progress and surgery Plan of care discussed with: Provider, RN, Patient SIGNATURE: Zack Jenkins DO PATIENT NAME: Elizabeth Modi DATE: August 28, 2019 TIME: 6:05 PM PAGER/CONTACT #: Team color pager Disclaimer: Portions of this note may have been generated using [employer] voice recognition software. Reasonable efforts were made to correct any dictation errors that resulted due to the programming of this software but some may still be present. Normal [facility] PROGRESS HNO ID: [id number] Author: Lula Posada (Rt) Service: Radiology Author Type: Senior Biostatistician Type: Progress Notes Filed: 08/28/2019 3:12 PM [...] No IV SITE: Inpatient - refer to LDA documentation POST EXAM PIV STATUS: Left in for next appointment PROCEDURE TYPE: NM Stress: 12.2mCi [id number] was administered IV for Rest Imaging at 1250 by ms. 35.9 mCi [id number] was administered IV for Stress Imaging at 240 by ty. ADMINISTRATION TIME: 1250 PATIENT DISCHARGED TO: Patient taken to IP transport area for return to RNF/ICU/ED. A Diagnostic radioactive procedure has taken place, with no further precautions necessary other than routine body substance precautions. More information regarding radiation safety can be found using this link: [email or web address] [email or web address] SIGNATURE: RT Albino PATIENT NAME: Elizabeth Modi DATE: August 28, 2019 TIME: 3:11 PM PAGER/CONTACT #: eMla [facility] PROGRESS HNO ID: [id number] Author: Francine Roberts Service: Vascular Surgery Author [...] questions or concerns Mon-Fri 6a-5p please page [phone]. After 5pm and on Weekends and Holidays, please page [phone] if in ICU or [phone] if on RNF. Subjective SUBJECTIVE: NAEON. Denies [...] Air IANDO: Date 08/27/19699 - 08/28/1965808/28/19699 - 08/29/19 0659 Shift 0154-7663 6108-9522 3125-3500 24 Hour Total 9478-7954 0126-8517 5268-1735 24 Hour Total INTAKE PO 30 30 [...] able, out of bed to chair - [facility] - Plan for OR Monday for femoral [...] ICU or 2174 if on R[address]. Normal [facility] Phosphorus Bloodon 0 Phosphate [Mass/Vol] 3.3 mg/dL Normal 2.5-4.9 [facility] Comment on above: Performed By: #### P 8 #### [facility] [address] [place] [address] THERAPY NTon 08-28-2019 THERAPY NT HNO ID: [id number] Author: Tanja (Pt) Hoda Service: Physical Therapy Author Type: Physical Therapist Type: Therapy (PT/OT/Speech/Resp) Filed: 08/28/2019 3:32 PM Note Text: PHYSICAL THERAPY MISSED VISIT SERVICE DATE: 08/28/2019 SERVICE TIME: 1529 to 1529 ROOM: DP-9870-1247-01 Attempted Treatment. Patient not seen due to Test/Procedure(out of room for stress test). Will reattempt as able. SIGNATURE: Tanja Drummond, PT PATIENT NAME: Elizabeth Modi DATE: August 28, 2019 TIME: 3:[address] [facility] THERAPY NT HNO ID: [id number] Author: An SantiagoOtr/Vickie Miller Service: Occupational Therapy Author Type: Occupational Therapist Type: Therapy (PT/OT/Speech/Resp) Filed: 08/28/2019 11:27 AM Note Text: Occupational Therapy Treatment SERVICE DATE: 08/28/2019 SERVICE TIME: 1026 to 1105 ROOM: RH-4793-7465-01 Recommended Discharge Disposition: Acute Rehab Recommended Discharge [...] (ADL);General symptoms and signs-other Interventions Provided: Self Group Home Management (81116) Self Group Home Management (14472) Treatment Minutes: 39 3 units Skilled Intervention(s):Full [...] for surgery. Reason for Occupational Therapy Consult: MANAGER LINUX Relevant Past Medical History: thyroid, HTN, DM, [...] Environment Patient Lives With: Self/Alone Assistance Available: real time operator Entry To Home: Stairs;With Rail Number Of [...] DATE: August 28, 2019 TIME: 11:17 AM [facility] ANES [place] 08-27-2019 ANES POST HNO ID: [id number] Author: Oanh Pugh Service: Anesthesiology Author Type: [...] 27, 2019 TIME: 5:16 PM PAGER/CONTACT #: [facility] ANES PREOPon 08-27-2019 ANES PREOP HNO ID: [id number] Author: Jesse Jimenez Service: Anesthesiology Author Type: Physician Type: Anesthesia PreOp Filed: 08/27/2019 11:01 AM Note Text: ANESTHESIOLOGY DAY OF SURGERY NOTE SERVICE DATE: 08/27/2019 SERVICE TIME: 11:00 AM : 1940 Procedure(s) (LRB): ANGIOGRAM EXTREMITY LOWER (Right) Surgeon(s): Jovanny Santos (Kmi) DO [place] Estimated body mass index is [...] XL) 25 mg ORAL DAILY Jennifer (Res) Hormeles 25 mg at 08/27/19 0806 - [MAR [...] 4 mg INTRAVENOUS q 6 H PRN Jnenifer (Res) Horattas - [MAR Hold due to Transfer] polyethylene glycol 3350 17 g packet (MIRALAX, GLYCOLAX) 17 g ORAL DAILY PRN Jennifer (Res) Horattas - [MAR Hold due to Transfer] docusate sodium 100 mg cap(s) (COLACE) 100 mg ORAL BID PRN Jennifer (Res) Horattas - [MAR Hold due to Transfer] magnesium hydroxide 400 mg/5 mL 30 mL (MOM) 30 mL ORAL DAILY PRN Jennifer (Res) Horattas - [MAR Hold due to Transfer] bisacodyl 10 mg suppository (DULCOLAX) 10 mg RECTAL DAILY PRN Jennifer (Res) Horattas - [MAR Hold due to Transfer] acetaminophen [...] August 27, 2019 TIME: 11:00 AM CSN: [id number] [facility] BRIEF OP NOTon 08-27-2019 BRIEF OP NOT HNO ID: [id number] Author: Tom Prescott DO Service: General Surgery [...] BRIEF OPERATIVE / PROCEDURE NOTE LOG ID: [id number] SURGERY/PROCEDURE DATE: 08/27/2019 INCISION/PROCEDURE START TIME: 10:01 AM INCISION CLOSE/PROCEDURE END TIME: 10:55 AM SURGEON(S)/PROCEDURALI ST(S) AND QUALITY ASSURANCE SPECIALIST(S): Surgeon(s) and Role: * Jovanny Parmar - Primary * Tom Prescott DO - Resident - Assisting Porcelain Enameling Supervisor: Lori Schmid SA SURGERY/PROCEDURE(S): Diagnostic bilatera lower extremity angiogram ANESTHESIA: Monitored Anesthesia Care FINDINGS: 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 ESTIMATED BLOOD LOSS: 5 mls SPECIMENS: None COMPLICATIONS: None PRE-OP/PRE-PROCEDURE DIAGNOSIS: Right lower extremity ischemia, wet gangreen POST-OP/POST-PROCEDURE DIAGNOSIS: Same as Preop SIGNATURE: Tom Prescott DO PATIENT NAME: Elizabeth Modi DATE: August 27, 2019 TIME: 11:08 AM PAGER/CONTACT #: [facility] CONSULTon 08-27-2019 CONSULT HNO ID: [id number] Author: Gold Sullivan Service: Cardiovascular Medicine Author [...] 27, 2019 TIME: 3:27 PM PAGER/CONTACT #: [phone] [facility] CONSULT PROGon 08-27-2019 CONSULT PROG HNO ID: [id number] Author: Doris Eden Service: Endocrinology Author Type: Physician Type: Consult Progress Note Filed: 08/27/2019 8:02 AM Note Text: ENDOCRINOLOGY CONSULT PROGRESS NOTE SERVICE DATE: 08/27/2019 SERVICE TIME: 7:50 AM Subjective INTERVAL HPI: Pt followed for diabetes mellitus type 2 with complications. Tr from [place]; adm for right foot infection and gangrene; [...] August 27, 2019 TIME: 8:02 AM PAGER: [phone] [facility] IR ABDOMEN ANGIO W/ RUNOFFon 08-27-2019 IR ABDOMEN ANGIO W/ RUNOFF * * *Final Report* * * DATE OF EXAM: Aug 27 2019 11:22AM [facility] 0993 - IR ABDOMEN ANGIO W/ [...] Left reconstitution at the above-knee popliteal artery. Maintainer Central Office: [facility] Transcribe Date/Time: Aug 29 2019 1:09P Dictated by : JOVANNY PARMAR MD This examination was interpreted and the report reviewed and electronically signed by: JOVANNY PARMAR MD on Aug 29 2019 1:12PM EST Normal [facility] NUTRITIONon 08-27-2019 NUTRITION HNO ID: [id number] Author: Carine Singh Service: Nutrition Therapy Author Type: Registered Dietitian Type: Nutrition Filed: 08/27/2019 3:14 PM Note Text: NUTRITION THERAPY PROGRESS NOTE SERVICE DATE: 08/27/2019 SERVICE TIME: 2:20 PM Nutrition Assessment: Recommended Malnutrition Diagnosis: Moderate Protein-Calorie Malnutrition (08/22/19 1436 : Keturah (Tank Washer) Valery) Estimated kilocalorie needs: 7835-4583 Calorie Calculation Method: 30-35 kcals/kg Estimated protein [...] August 27, 2019 TIME: 2:20 PM PAGER: [phone] [facility] PROGRESSon 08-27-2019 PROGRESS HNO ID: [id number] Author: Tom Prescott DO Service: General Surgery [...] kg/m? O2 Therapy: Room Air IANDO: Date 08/26/19 07 - 08/27/19 0659 08/27/19 07 - 08/28/19 0659 Shift 2434-4287 8579-9401 2982-2640 24 Hour Total 7634-2111 5972-7966 8405-0724 24 Hour Total INTAKE PO 30 30 [...] questions or concerns Mon-Fri 6a-5p please page [phone]. After 5pm and on Weekends and Holidays, please page [phone] if in ICU or [phone] if on R[address]. [address] [facility] PROGRESS HNO ID: [id number] Author: Sue Bianchi Service: Hospital Medicine Author Type: Physician Type: Progress Notes Filed: 08/27/2019 7:27 AM Note Text: DEPARTMENT OF HOSPITAL MEDICINE PROGRESS NOTE SERVICE DATE: 08/27/2019 SERVICE TIME: 7:24 AM Hospital Medicine/Primary Attending: Sue Bianchi DO NIGHT AND WEEKEND COVERAGE: After 7pm, please call cross cover pager #[phone] Subjective INTERVAL HPI: Patient seen and examined. 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 2 to 12 grossly intact, [...] 08/21/191914 vte non-pharmacologic prophylaxis - none indicated (il,oh) 08/21/191914 activity - mobilize patient (il,va) VTE Prophylaxis: VTE prophylaxis appropriate Disposition: Home with [facility] Plan of care discussed with: Provider, RN, Patient SIGNATURE: Sue Bianchi DO PATIENT NAME: Elizabeth Modi DATE: August 27, 2019 TIME:7:24 AM PAGER/CONTACT #: [phone] [facility] THERAPY NTon 08-27-2019 THERAPY NT HNO ID: [id number] Author: Tanja (Pt) Hoda Service: Physical Therapy Author Type: Physical Therapist Type: Therapy (PT/OT/Speech/Resp) Filed: 08/27/2019 9:33 AM Note Text: PHYSICAL THERAPY MISSED VISIT SERVICE DATE: 08/27/2019 SERVICE TIME: 0932 to 09 ROOM: AK-OR Attempted Treatment. Patient not seen due to Test/Procedure(at angiogram). Will follow. SIGNATURE: Tanja Drummond PT PATIENT NAME: Elizabeth Modi DATE: August 27, 2019 TIME: 9:[address] [facility] THERAPY NT HNO ID: [id number] Author: Maricarmen Ochoar/Vickie Good Service: Occupational Therapy [...] August 27, 2019 TIME: 9:[address] [facility] Basic Panelon 08-26-2019 Creatinine [Mass/Vol] 0.86 mg/dL Normal 0.67-1.17 [facility] Comment on above: Result Comment: Use of this assay is not recommended for patients undergoing treatment with phenindione, due to the potential for falsely depressed results. Performed By: #### P 8 #### [facility] [address], [place] [address] Anion gap [Moles/Vol] 12 mmol/L Normal 8-16 [facility] Comment on above: Performed By: #### P 8 #### [facility] [address], [place] [address] CO2 [Moles/Vol] 25 mmol/L Normal 21-32 [facility] Comment on above: Performed By: #### P 8 #### [facility] [address], [place] [address] Urea nitrogen [Mass/Vol] 18 mg/dL Normal 7-18 [facility] Comment on above: Performed By: #### P 8 #### [facility] [address], [place] [address] Calcium [Mass/Vol] 7.8 mg/dL Low 8.5-10.1 [facility] Comment on above: Performed By: #### P 8 #### [facility] [address], [place] [address] Glucose [Mass/Vol] 114 mg/dL High 70-99 [facility] Comment on above: Performed By: #### P 8 #### [facility] [address], [place] [address] Chloride [Moles/Vol] 104 mmol/L Normal 98-107 [facility] Comment on above: Performed By: #### P 8 #### [facility] [address], [place] [address] Potassium [Moles/Vol] 3.8 mmol/L Normal 3.5-5.1 [facility] Comment on above: Performed By: #### P 8 #### [facility] [address], [place] [address] Sodium [Moles/Vol] 137 mmol/L Normal 136-145 [facility] Comment on above: Performed By: #### P 8 #### [facility] [address], [place] [address] CASE MANAGEMon 08-26-2019 CASE MANAGEM HNO ID: [id number] Author: Christina Crandall Sec Service: Care Management Author Type: ? Type: Care Mgt Progress Note Filed: 08/26/2019 10:50 AM Note Text: CARE MANAGEMENT PROGRESS NOTE SERVICE DATE: 08/26/2019 SERVICE TIME: 1000 LOS: 5 days IMM Follow Up Copy Given: Yes Copy given to:: Patient Method: In Person SIGNATURE: Christina Perez PATIENT NAME: Elizabeth Modi DATE: August 26, 2019 TIME: 10:50 AM PAGER/CONTACT #: [phone] [facility] CASE MANAGEM HNO ID: [id number] Author: Tami SantiagoRn) KAVIN Patricio Service: Care Management Author Type: Registered Nurse Type: Care Mgt Progress Note Filed: 08/26/2019 10:17 AM Note Text: CARE MANAGEMENT PROGRESS NOTE SERVICE DATE: 08/26/2019 SERVICE TIME: 10:15 AM LOS: 5 days Chart reviewed. Plan now is for arteriogram likely next week and then possibly bka v aka pending results. Vascular and Ortho follow. Referral to [facility] for AR. Will follow clinical progress. SIGNATURE: Tami Patricio RN PATIENT NAME: Elizabeth Modi DATE: August 26, 2019 TIME: 10:15 AM PAGER/CONTACT #: [phone] [facility] CONSULT PROGon 08-26-2019 CONSULT PROG HNO ID: [id number] Author: Doris Eden Service: Endocrinology Author Type: Physician Type: Consult Progress Note Filed: 08/26/2019 8:09 AM Note Text: ENDOCRINOLOGY CONSULT PROGRESS NOTE SERVICE DATE: 08/26/2019 SERVICE TIME: 8:00 AM Subjective INTERVAL HPI: Pt followed for diabetes mellitus type 2 with complications. Tr from [place]; adm for right foot infection and gangrene; [...] 2019 TIME: 8:09 AM PAGER: [phone] [facility] Hemogram/Diffon 08-26-2019 Abs Immature Grans 0.20 thou/cmm High 0.00-0.05 [facility] Comment on above: Performed By: #### M AG #### [place] [address] Abs Neut (ANC) 6.48 thou/cmm High 1.78-5.38 [facility] Comment on above: Performed By: #### M AG #### [place] [address] Abs. Baso 0.04 thou/cmm Normal 0.01-0.08 [facility] Comment on above: Performed By: #### M AG #### [place] [address] Abs. [place] 0.93 thou/cmm High 0.30-0.82 [facility] Comment on above: Performed By: #### M AG #### [facility] [address], [place] [address] Basophils/100 WBC (Bld) 0.4 % Normal [facility] Comment on above: Performed By: #### M AG #### [facility] [address], [place] [address] Eosinophils (Bld) [#/Vol] 0.21 thou/cmm Normal 0.04-0. 54 [facility] Comment on above: Performed By: #### M AG #### [facility] [address], [place] [address] Eosinophils/100 WBC (Bld) 2.1 % Normal [facility] Comment on above: Performed By: #### M AG #### [facility] [address], [place] [address] Erythrocyte distribution width (RBC) [Ratio] 13.3 % Normal 11.6-14.4 [facility] Comment on above: Performed By: #### M AG #### [facility] [address], [place] [address] Hematocrit (Bld) [Volume fraction] 32.3 % Low 40.1-51.0 [facility] Comment on above: Performed By: #### M AG #### [facility] [address], [place] [address] Hemoglobin (Bld) [Mass/Vol] 10.5 g/dL Low 13.7-17.5 [facility] Comment on above: Performed By: #### M AG #### [facility] [address], [place] [address] Immature Grans 2.00 % Normal [facility] Comment on above: Performed By: #### M AG #### [facility] [address], [place] [address] Lymphocytes (Bld) [#/Vol] 2.34 thou/cmm Normal 0.84-2. 85 [facility] Comment on above: Performed By: #### M AG #### [facility] [address], [place] [address] Lymphocytes/100 WBC (Bld) 22.9 % Normal [facility] Comment on above: Performed By: #### M AG #### [facility] [address], [place] [address] MCH (RBC) [Entitic mass] 28.6 pg Normal 25.7-32.2 [facility] Comment on above: Performed By: #### M AG #### [facility] [address], [place] [address] MCHC (RBC) [Mass/Vol] 32.5 % Normal 32.3-36.5 [facility] Comment on above: Performed By: #### M AG #### [facility] [address], [place] [address] MCV (RBC) [Entitic vol] 88.0 fL Normal 83.2-95.6 [facility] Comment on above: Performed By: #### M AG #### [place] [address] Monocytes/100 WBC (Bld) 9.1 % Normal [facility] Comment on above: Performed By: #### M AG #### [facility] [address], [place] [address] Platelet mean volume (Bld) [Entitic vol] 9.5 fL Normal 8.7-12.0 [facility] Comment on above: Performed By: #### M AG #### [address] [address] Platelets (Bld) [#/Vol] 474 thou/cmm High 141-365 [facility] Comment on above: Performed By: #### M AG #### [facility] [address], [place] [address] RBC (Bld) [#/Vol] 3.67 mil/cmm Low 4.63-6.08 [facility] Comment on above: Performed By: #### M AG #### [facility] [address] [address] RDW SD 43.1 fl Normal 36.1-45.8 [facility] Comment on above: Performed By: #### M AG #### [facility] [address], [place] [address] Seg Neutrophil 63.5 % Normal [facility] Comment on above: Performed By: #### M AG #### [facility] [address], [place] [address] WBC (Bld) [#/Vol] 10.21 thou/cmm High 4.23-9.07 [facility] Comment on above: Performed By: #### M AG #### [facility] [address], [place] [address] PROGRESSon 08-26-2019 PROGRESS HNO ID: [id number] Author: Sue Bianchi Service: Hospital Medicine Author Type: Physician Type: Progress Notes Filed: 08/26/2019 1:35 PM Note Text: DEPARTMENT OF HOSPITAL MEDICINE PROGRESS NOTE SERVICE DATE: 08/26/2019 SERVICE TIME: 1:34 PM Hospital Medicine/Primary Attending: Sue Bianchi, DO NIGHT AND WEEKEND COVERAGE: After 7pm, please call cross cover pager #[phone] Subjective INTERVAL HPI: Patient seen and examined. 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 2 to 12 grossly intact, no focal motor or sensory deficits noted, speech normal Psych- A ANDO x 3, mood normal Skin- R lower extremity dressing intact, wound care notes and images reviewed Lines, Drains, and Airways Line Peripheral 08/21/192238 Assessment Left Antecubital 20 Gauge 4 days [...] 08/21/191914 vte non-pharmacologic prophylaxis - none indicated (il,va) 08/21/191914 activity - mobilize patient ([place], [place]) VTE Prophylaxis: VTE prophylaxis appropriate Disposition: Home with [facility] Plan of care discussed with: Provider, RN, Patient SIGNATURE: Sue Binachi DO PATIENT NAME: Elizabeth Modi DATE: August 26, 2019 TIME:1:34 PM PAGER/CONTACT #: [phone] [facility] PROGRESS HNO ID: [id number] Author: Tom Prescott DO Service: General Surgery [...] questions or concerns Mon-Fri 6a-5p please page [phone]. After 5pm and on Weekends and Holidays, please page [phone] if in ICU or [phone] if on RNF. Subjective SUBJECTIVE: Patient seen [...] discussed with attending: Dr. Carlos Prescott DO, MBA PGY-1 General Surgery Resident 08/26/2019 6:42 AM Pager below: Vascular AND Thoracic Surgery Service Pager: For questions or concerns Mon-Fri 6a-5p please page [phone]. After 5pm and on Weekends and Holidays, please page [phone] if in ICU or [phone] [address] [facility] THERAPY NTon 08-26-2019 THERAPY NT HNO ID: [id number] Author: Maricarmen Babb/Vickie Good Service: Occupational Therapy Author Type: Occupational Therapist Type: Therapy (PT/OT/Speech/Resp) Filed: 08/26/2019 11:15 AM Note Text: Occupational Therapy Treatment SERVICE DATE: 08/26/2019 SERVICE TIME: 919 to 944 ROOM: [place] [address] Recommended Discharge Disposition: Acute Rehab Justification For [...] (ADL);General symptoms and signs-other Interventions Provided: Self Group Home Management (73302);Therapeutic Exercise (90811) Therapeutic Exercise (44125) Treatment Minutes: 10 1 unit Skilled Intervention(s): [...] to patient shrugging shoulders during activity. Self Group Home Management (78735) Treatment Minutes: 15 1 unit Skilled Intervention(s): [...] were noted Reason for Occupational Therapy Consult: MANAGER LINUX Relevant Past Medical History: thyroid, HTN, DM, claudication Patient Report: Patient IDx2. Pt reported no pain and was agreeable to therapy. 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: real time operator Entry To Home: Stairs;With Rail Number Of [...] treatment directly supervised by licensed Occupational Therapist. [facility] CONSULT PROGon 08-25-2019 CONSULT PROG HNO ID: [id number] Author: Doris Eden Service: Endocrinology Author Type: Physician Type: Consult Progress Note Filed: 08/25/2019 9:29 AM Note Text: ENDOCRINOLOGY CONSULT PROGRESS NOTE SERVICE DATE: 08/25/2019 SERVICE TIME: 9:10 AM Subjective INTERVAL HPI: Pt followed for diabetes mellitus type 2 with complications. Tr from [place]; adm for right foot infection and gangrene; [...] August 25, 2019 TIME: 9:29 AM PAGER: [phone] 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 Pt tolerated well with no pain. Stump with blood clots and vitalized tissue. No evidence of infection. Francine Roberts MD General Surgery, PGY-3 August 25, 2019 8:11 AM [facility] PROGRESSon 08-25-2019 PROGRESS HNO ID: [id number] Author: Sue Bianchi Service: Hospital Medicine Author Type: Physician Type: Progress Notes Filed: 08/25/2019 4:34 PM Note Text: DEPARTMENT OF HOSPITAL MEDICINE PROGRESS NOTE SERVICE DATE: 08/25/2019 SERVICE TIME: 1:10 PM Hospital Medicine/Primary Attending: Sue Bianchi, DO NIGHT AND WEEKEND COVERAGE: After 7pm, please call cross cover pager #[phone] Subjective INTERVAL HPI: Patient seen and examined. 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 2 to 12 grossly intact, [...] 08/21/191914 vte non-pharmacologic prophylaxis - none indicated (il,oh) 08/21/191914 activity - mobilize patient (fl,oh) VTE Prophylaxis: VTE prophylaxis appropriate Disposition: Home with [facility] Plan of care discussed with: Provider, RN, Patient SIGNATURE: Sue Bianchi DO PATIENT NAME: Elizabeth Modi DATE: August 25, 2019 TIME:1:10 PM PAGER/CONTACT #: [phone] [facility] PROGRESS HNO ID: [id number] Author: Francine Roberts Service: General Surgery Author [...] questions or concerns Mon-Fri 6a-5p please page [phone]. After 5pm and on Weekends and Holidays, please page [phone] if in ICU or [phone] if on [...] 08/24/19699 - 08/25/1965808/25/19699 - 08/26/19 0659 Shift 2371-7019 8279-1538 0071-1146 24 Hour Total 3054-1169 4789-9201 8214-6465 24 Hour Total INTAKE Shift Total OUTPUT [...] ICU or 2174 [address]. [address] [facility] Basic Panelon 08-24-2019 Creatinine [Mass/Vol] 0.76 mg/dL Normal 0.67-1.17 [facility] Comment on above: Result Comment: Use of this assay is not recommended for patients undergoing treatment with phenindione, due to the potential for falsely depressed results. Performed By: #### G LMET #### [address] [address] Anion gap [Moles/Vol] 10 mmol/L Normal 8-16 [facility] Comment on above: Performed By: #### G LMET #### [address] [address] CO2 [Moles/Vol] 20 mmol/L Low 21-32 [facility] Comment on above: Performed By: #### G LMET #### [address] [address] Glucose [Mass/Vol] 107 mg/dL High 70-99 [facility] Comment on above: Performed By: #### G LMET #### [facility] [address], [place] [address] Urea nitrogen [Mass/Vol] 12 mg/dL Normal 7-18 [facility] Comment on above: Performed By: #### G LMET #### [address] [address] Calcium [Mass/Vol] 7.9 mg/dL Low 8.5-10.1 [facility] Comment on above: Performed By: #### G LMET #### [facility] [address], [place] [address] Chloride [Moles/Vol] 105 mmol/L Normal 98-107 [facility] Comment on above: Performed By: #### G LMET #### [facility] [address], [place] [address] Potassium [Moles/Vol] 4.4 mmol/L Normal 3.5-5.1 [facility] Comment on above: Performed By: #### G LMET #### [facility] [address], [place] [address] Sodium [Moles/Vol] 131 mmol/L Low 136-145 [facility] Comment on above: Performed By: #### G LMET #### [facility] [address], [place] [address] CONSULT PROGon 08-24-2019 CONSULT PROG HNO ID: [id number] Author: Hermila Gallegos Service: Endocrinology Author Type: [...] August 24, 2019 TIME: 3:12 PM PAGER: [phone] [facility] CONSULT PROG HNO ID: [id number] Author: Martha Ryan (Pharmacist) Service: Pharmacy Author [...] pharmacy if questions. MARTHA RYAN, PHARMACIST Ext: [phone] [facility] Hemogram/Diffon 08-24-2019 Abs Immature Grans 0.19 thou/cmm High 0.00-0.05 [facility] Comment on above: Performed By: #### M AG #### [place] [address] Abs Neut (ANC) 6.15 thou/cmm High 1.78-5.38 [facility] Comment on above: Performed By: #### M AG #### [place] [address] Abs. Baso 0.04 thou/cmm Normal 0.01-0.08 [facility] Comment on above: Result Comment: Smea r scanned; tech agrees with automated differential Performed By: #### M AG #### [place] [address] Abs. [place] 0.75 thou/cmm Normal 0.30-0.82 [facility] Comment on above: Performed By: #### M AG #### [facility] [address], [place] [address] Basophils/100 WBC (Bld) 0.4 % Normal [facility] Comment on above: Performed By: #### M AG #### [facility] [address], [place] [address] Eosinophils (Bld) [#/Vol] 0.20 thou/cmm Normal 0.04-0. 54 [facility] Comment on above: Performed By: #### M AG #### [facility] [address], [place] [address] Eosinophils/100 WBC (Bld) 2.2 % Normal [facility] Comment on above: Performed By: #### M AG #### [facility] [address], [place] [address] Immature Grans 2.10 % Normal [facility] Comment on above: Performed By: #### M AG #### [facility] [address], [place] [address] Lymphocytes (Bld) [#/Vol] 1.86 thou/cmm Normal 0.84-2. 85 [facility] Comment on above: Performed By: #### M AG #### [facility] [address], [place] [address] Lymphocytes/100 WBC (Bld) 20.2 % Normal [facility] Comment on above: Performed By: #### M AG #### [facility] [address], [place] [address] Monocytes/100 WBC (Bld) 8.2 % Normal [facility] Comment on above: Performed By: #### M AG #### [facility] [address], [place] [address] Seg Neutrophil 66.9 % Normal [facility] Comment on above: Performed By: #### M AG #### [facility] [address], [place] [address] Erythrocyte distribution width (RBC) [Ratio] 13.3 % Normal 11.6-14.4 [facility] Comment on above: Performed By: #### M AG #### [facility] [address] [place] [address] Hematocrit (Bld) [Volume fraction] 36.9 % Low 40.1-51.0 [facility] Comment on above: Performed By: #### M AG #### [facility] [address] [place] [address] Hemoglobin (Bld) [Mass/Vol] 11.7 g/dL Low 13.7-17.5 [facility] Comment on above: Performed By: #### M AG #### [facility] [address] [place] [address] MCH (RBC) [Entitic mass] 28.1 pg Normal 25.7-32.2 [facility] Comment on above: Performed By: #### M AG #### [facility] [address] [place] [address] MCHC (RBC) [Mass/Vol] 31.7 % Low 32.3-36.5 [facility] Comment on above: Performed By: #### M AG #### [facility] [address] [place] [address] MCV (RBC) [Entitic vol] 88.7 fL Normal 83.2-95.6 [facility] Comment on above: Performed By: #### M AG #### [facility] [address] [place] [address] Platelet mean volume (Bld) [Entitic vol] 9.5 fL Normal 8.7-12.0 [facility] Comment on above: Performed By: #### M AG #### [facility] [address] [place] [address] Platelets (Bld) [#/Vol] 428 thou/cmm High 141-365 [facility] Comment on above: Performed By: #### M AG #### [facility] [address] [place] [address] RBC (Bld) [#/Vol] 4.16 mil/cmm Low 4.63-6.08 [facility] Comment on above: Performed By: #### M AG #### [facility] [address] [place] [address] RDW SD 43.4 fl Normal 36.1-45.8 [facility] Comment on above: Performed By: #### M AG #### [facility] [address], [place] [address] WBC (Bld) [#/Vol] 9.20 thou/cmm High 4.23-9.07 [facility] Comment on above: Performed By: #### M AG #### [facility] [address], [place] [address] Magnesium Bloodon 08-24-2019 Magnesium [Mass/Vol] 2.4 mg/dL Normal 1.6-2.6 [facility] Comment on above: Performed By: #### M AG #### [facility] [address], [place] [address] PROGRESSon 08-24-2019 PROGRESS HNO ID: [id number] Author: Sue Bianchi Service: Hospital Medicine Author Type: Physician Type: Progress Notes Filed: 08/24/2019 5:16 PM Note Text: DEPARTMENT OF HOSPITAL MEDICINE PROGRESS NOTE SERVICE DATE: 08/24/2019 SERVICE TIME: 12:40 PM Hospital Medicine/Primary Attending: Sue Bianchi, DO NIGHT AND WEEKEND COVERAGE: After 7pm, please call cross cover pager #[phone] Subjective INTERVAL HPI: Patient seen and examined. 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 PROGRESS HNO ID: [id number] Author: Edy Paredes Service: Infectious Disease Author Type: Physician Type: Progress Notes Filed: 08/24/2019 9:20 AM Note Text: Edy Paredes MD, MS, FACP, [facility] Division of Infectious Diseses [address] [place] [address] Office: [phone] INFECTIOUS DISEASE CONSULT PROGRESS NOTE SERVICE DATE: [...] off. SIGNATURE: Edy Paredes MD, MS, FACP, [facility] PATIENT NAME: Elizabeth Modi DATE: August 24, 2019 TIME: 9:16 AM PAGER/CONTACT #: [phone] [facility] PROGRESS HNO ID: [id number] Author: Francine Roberts Service: Vascular Surgery Author [...] questions or concerns Mon-Fri 6a-5p please page [phone]. After 5pm and on Weekends and Holidays, please page [phone] if in ICU or [phone] if on RNF. Subjective SUBJECTIVE: Denies leg [...] kg/m? O2 Therapy: Nasal Cannula IANDO: Date 08/23/19699 - 08/24/19 0659 08/24/19 0700 - 08/25/19 0659 Shift 9033-0077 5281-2214 1615-0158 24 Hour Total 1747-9385 6511-5236 4746-6391 24 Hour Total INTAKE IV 625 625 OR Crystalloid intake (mL) 250 250 Volume (mL) (lactated ringers infusion) 125 125 Volume (mL) (vancomycin iv piggyback 1.25 g in D5W 250 mL (VANCOCIN)) 250 250 Shift Total 625 625 OUTPUT Urine 923 463 2176 Void (ml) 119 107 4029 Blood 50 50 Estimated Blood loss 50 50 Shift Total 060 329 6717 Weight (kg) 85 85 85 85 85 [...] 3 g in NaCl 0.9% 100 mL MB+/ADD-[place] (UNASYN) 3 g INTRAVENOUS q 6 H [...] ICU or 2174 [address] [facility] Phosphorus Bloodon --202 0 Phosphate [Mass/Vol] 2.3 mg/dL Low 2.5-4.9 [facility] Comment on above: Performed By: #### G LMET #### [facility] [address], [place] [address] THERAPY NTon 08-24-2019 THERAPY NT HNO ID: [id number] Author: Lizeth (PtSmitha Cobos Service: Physical Therapy Author Type: Physical Therapist Type: Therapy (PT/OT/Speech/Resp) Filed: 08/24/2019 2:49 PM Note Text: Physical Therapy Evaluation SERVICE DATE: 08/24/2019 SERVICE TIME: 1325 to 1346 ROOM: [place] [address] Recommended Discharge Disposition: Acute Rehab Recommended Discharge [...] at End of Session: Supine in Bed;Call Snigh in Reach;SCDs Tolerance Limited By Fatigue(pt frustration [...] Weakness (generalized) Interventions Provided: Evaluation $ Evaluation-Low (97074) Billed Units: 1 unit History and examination [...] Environment Patient Lives With: Self/Alone Assistance Available: real time operator Entry To Home: Stairs;With Rail Number Of [...] August 24, 2019 TIME: 2:[address] [facility] THERAPY NT HNO ID: [id number] Author: Susan SantiagoOtr/LSmitha Miner Service: Occupational Therapy Author Type: Occupational Therapist Type: Therapy (PT/OT/Speech/Resp) Filed: 08/24/2019 1:07 PM Note Text: Occupational Therapy Evaluation SERVICE DATE: 08/24/2019 SERVICE TIME: 1133 to 1208 ROOM: [place] [address] Recommended Discharge Disposition: Acute Rehab Justification For [...] (ADL);General symptoms and signs-other Interventions Provided: Evaluation;Self Group Home Management (22085) $ Evaluation-Moderate (80067) Billed Units: 1 unit OT Evaluation Moderate [...] occupational performance: thyroid, HTN, DM, claudication Self Group Home Management (68958) Treatment Minutes: 10 1 unit Skilled Intervention(s): [...] lower extremity. 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 Patient agreeable to therapy. I have no pain at all." Denies pain before/after transfers. 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: real time operator(dtr) Entry To Home: Stairs;With Rail(bilat rails) Number [...] details for this therapy evaluation/treatment. SIGNATURE: NADIR Cox/L PATIENT NAME: Elizabeth Modi DATE: August 24, 2019 TIME: 1:01 PM [facility] ANES [place] 08-23-2019 ANES POST HNO ID: [id number] Author: Sj Huizar Service: Anesthesiology Author Type: [...] 0945 08/23/19 1000 08/23/19 1015 Resp: 19 20 19 08/23/19 0930 08/23/19 0945 08/23/19 [...] 2019 TIME: 11:24 AM PAGER/CONTACT #: [phone] [facility] ANES PREOPon 08-23-2019 ANES PREOP HNO ID: [id number] Author: Sj Huizar Service: Anesthesiology Author Type: [...] Units SUBCUTANEOUS q 12 H Mohammad F Mosque 5,000 Units at 08/22/19 0807 - [MAR Hold due to Transfer] aluminum-magnesium hydroxide-simethicone 200-200-20 mg/5 mL 30 mL (MAALOX,MYLANTA,MAG-AL PLUS) 30 mL ORAL DAILY PRN Mohammad F Mosque - [MAR Hold due to Transfer] ondansetron 4 mg tab(s) (ZOFRAN) 4 mg ORAL q 6 H PRN Mohammad F Mosque Or - [MAR Hold due to Transfer] ondansetron (PF) 4 mg injection (ZOFRAN) 4 mg INTRAVENOUS q 6 H PRN Mohammad F Mosque - [MAR Hold due to Transfer] polyethylene glycol 3350 17 g packet (MIRALAX, GLYCOLAX) 17 g ORAL DAILY PRN Mohammad F Mosque - [MAR Hold due to Transfer] docusate sodium 100 mg cap(s) (COLACE) 100 mg ORAL BID PRN Mohammad F Mosque - [MAR Hold due to Transfer] magnesium hydroxide 400 mg/5 mL 30 mL (MOM) 30 mL ORAL DAILY PRN Mohammad F Mosque - [MAR Hold due to Transfer] bisacodyl 10 mg suppository (DULCOLAX) 10 mg RECTAL DAILY PRN Mohammad F Mosque - [MAR Hold due to Transfer] acetaminophen 650 mg tab(s) (TYLENOL) 650 mg ORAL q 6 H PRN Mohammad F Mosque - [MAR Hold due to Transfer] atorvastatin 40 mg tab(s) (LIPITOR) 40 mg ORAL DAILY Mohammad F Mosque 40 mg at 08/22/192009 - [MAR Hold due to Transfer] lisinopril 10 mg tab(s) (ZESTRIL, PRINIVIL) 10 mg ORAL DAILY Mohammad F Mosque 10 mg at 08/22/19 0807 - [MAR Hold due to Transfer] levothyroxine 25 mcg tab(s) (SYNTHROID) 25 mcg ORAL DAILY Mohammad F Mosque 25 mcg at 08/22/19 0600 - [MAR Hold due to Transfer] insulin lispro pen (rapid acting) (HumaLOG KWIKPEN) SUBCUTANEOUS w MEALS AND HS Mohammad F Mosque 1 Units at 08/22/192128 - [MAR Hold due to Transfer] dextrose 40 % 15 g 15 g ORAL PRN Mohammad F Mosque Or - [MAR Hold due to Transfer] glucagon 1 mg injection (GLUCAGEN) 1 mg INTRAMUSCULAR PRN Mohammad F Mosque Or - [MAR Hold due to Transfer] dextrose 50% in water 25 mL syringe 12.5 g INTRAVENOUS PRN Mohammad F Mosque - [MAR Hold due to Transfer] vancomycin iv piggyback 1.25 g in D5W 250 mL (VANCOCIN) 1.25 g INTRAVENOUS q 12 HR Mohammad F Mosque 250 mL/hr at 08/22/192009 1.25 g at 08/22/192009 - [MAR Hold due to Transfer] vancomycin dosing and monitoring per pharmacy OTHER As Directed Mohammad F Mosque - [MAR Hold due to Transfer] piperacillin-tazobacta m iv piggyback 3.375 g in dextrose (iso-osmotic) 50 mL (ZOSYN) 3.375 g INTRAVENOUS q 6 H Mohammad F Mosque 100 mL/hr at 08/23/19 0549 3.375 g at 08/23/19 0549 - [MAR Hold due to Transfer] clindamycin iv piggyback 600 mg in D5W 50 mL (CLEOCIN) 600 mg INTRAVENOUS q 6 H Mohammad F Mosque 100 mL/hr at 08/23/19 0549 600 mg [...] August 23, 2019 TIME: 8:32 AM CSN: [id number] Normal [facility] BRIEF OP NOTon 08-23-2019 BRIEF OP NOT HNO ID: [id number] Author: Jennifer Crooks Service: General Surgery Author Type: Resident Type: Brief Op Note Filed: 08/23/2019 9:35 AM Note Text: Attestation signed by Gordo Figueroa at 08/23/2019 10:01 AM I was present for the entire procedure and performed the procedure with the assistance of the resident and the surgical manager BRIEF OP / PROCEDURE NOTE LOG ID: [id number] Surgery/Procedure Date: 08/23/2019 Incision/Procedure Start Time: 8:42 AM Incision Close/Procedure End Time: 9:04 AM Surgeon(s)/Procedurali st(s) and [facility] Associate Professor(s): Surgeon(s) and Role: * Gordo Figueroa - [...] 2019 TIME: 9:29 AM PAGER/CONTACT #: Normal [facility] Basic Panelon 08-23-2019 Creatinine [Mass/Vol] 0.88 mg/dL Normal 0.67-1.17 [facility] Comment on above: Result Comment: Use of this assay is not recommended for patients undergoing treatment with phenindione, due to the potential for falsely depressed results. Performed By: #### P 8 #### [address] [address] Glucose [Mass/Vol] 96 mg/dL Normal 70-99 [facility] Comment on above: Performed By: #### P 8 #### [facility] [address], [place] [address] Anion gap [Moles/Vol] 12 mmol/L Normal 8-16 [facility] Comment on above: Performed By: #### P 8 #### [address] [address] Calcium [Mass/Vol] 7.2 mg/dL Low 8.5-10.1 [facility] Comment on above: Performed By: #### P 8 #### [facility] [address], [place] [address] CO2 [Moles/Vol] 22 mmol/L Normal 21-32 [facility] Comment on above: Performed By: #### P 8 #### [facility] [address], [place] [address] Urea nitrogen [Mass/Vol] 15 mg/dL Normal 7-18 [facility] Comment on above: Performed By: #### P 8 #### [facility] [address], [place] [address] Chloride [Moles/Vol] 103 mmol/L Normal 98-107 [facility] Comment on above: Performed By: #### P 8 #### [facility] [address] [place] [address] Potassium [Moles/Vol] 3.8 mmol/L Normal 3.5-5.1 [facility] Comment on above: Performed By: #### P 8 #### [facility] [address] [place] [address] Sodium [Moles/Vol] 133 mmol/L Low 136-145 [facility] Comment on above: Performed By: #### P 8 #### [place] [address] CASE MGT INIT ASSESon 2019 CASE MGT INIT ASSENRRIQUE HNO ID: [id number] Author: Tami SantiagoRn) KAVIN Patricio Service: Care Management Author Type: Registered Nurse Type: Care Mgt Initial Assessment Filed: 08/23/2019 3:20 PM Note Text: CARE MANAGEMENT: ASSESSMENT AND DISCHARGE PLAN SERVICE DATE: August 23, 2019 SERVICE TIME: 3:18 PM PRIMARY CARE PHYSICIAN: No primary care provider on file. 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 No Is Patient Psychosocially Complex?: No ASSESSMENT AND PLAN: Medical Needs: Medical Needs: None Psychosocial Needs: Psychosocial Needs: None FREEDOM OF CHOICE EXPLAINED: [place] of Choice Given: Yes Level of Care Discussed: Inpatient Rehab Facility Financial Disclosure Provided: Yes Financial Disclosure Comments: ESR Provider List: (Pt refused list- would like [facility]. ) POTENTIAL TRANSITION PLANS Rehab Facility Spoke with pt at the bedside. 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 Pt states that he has a PCP in [place]. Pt is s/p right foot amp. Anticipate AR needs at d/c. Await PT/OT evals. Pt would like [facility] rehab- referral sent. Pt will need auth and likely transport at d/c. Will follow. SIGNATURE: Tami Patricio RN PATIENT NAME: Elizabeth Modi DATE: August 23, 2019 TIME: 3:18 PM PAGER/CONTACT #: [phone] [facility] CONSULTon 08-23-2019 CONSULT HNO ID: [id number] Author: Doris Eden Service: Endocrinology Author Type: Physician Type: Consults Filed: 08/23/2019 1:21 PM Note Text: I have reviewed the patient's medical record in detail. Consult note dictated. See orders for Lantus/oral agents. Can use OTC Novolin N at home. Doris Eden MD. [facility] CONSULT HNO ID: [id number] Author: Doris Eden Service: Endocrinology Author Type: Physician Type: Consults Filed: 08/25/2019 9:16 AM Note Text: [facility] - Consultation PATIENT NAME: ELIZABETH MODI CSN: [id number] DATE OF : 1940 SEX/AGE: M/79 PATIENT TYPE: I [place] [facility] [place] [facility] LOCATION: [id number] DATE OF SERVICE: 08/23/2019 TIME OF SERVICE: 01:15 PM REFERRING PHYSICIAN: Dexter Chávez MD REASON FOR CONSULTATION: Uncontrolled diabetes. 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 Patient [...] Lantus 10. Doris Eden MD Endocrinology SM:shima /[id number] [facility] CONSULT PROGon 08-23-2019 CONSULT PROG HNO ID: [id number] Author: Isac Navarro (Pharmacist) Service: Pharmacy Author [...] have any questions[place] [phone]. Age: [age] year old Allergies: ALLERGIES No [...] Value 08/23/2019 1830 22.0 ISAC NAVARRO, PHARMACIST Normal [facility] CONSULT PROG HNO ID: [id number] Author: Paulo Landis Service: Infectious Disease Author [...] labs Paulo Landis MD Infectious Disease Respiratory Manter Pager: [phone] August 23, [address] [facility] Hemogram/Diffon 08-23-2019 Abs Immature Grans 0.19 thou/cmm High 0.00-0.05 [facility] Comment on above: Performed By: #### M AG #### [place] [address] Abs Neut (ANC) 15.52 thou/cmm High 1.78-5.38 [facility] Comment on above: Performed By: #### M AG #### [place] [address] Abs. Baso 0.04 thou/cmm Normal 0.01-0.08 [facility] Comment on above: Result Comment: Smea r scanned; tech agrees with automated differential Performed By: #### M AG #### [place] [address] Abs. [place] 1.45 thou/cmm High 0.30-0.82 [facility] Comment on above: Performed By: #### M AG #### [facility] [address], [place] [address] Basophils/100 WBC (Bld) 0.2 % Normal [facility] Comment on above: Performed By: #### M AG #### [facility] [address], [place] [address] Eosinophils (Bld) [#/Vol] 0.21 thou/cmm Normal 0.04-0. 54 [facility] Comment on above: Performed By: #### M AG #### [facility] [address], [place] [address] Eosinophils/100 WBC (Bld) 1.1 % Normal [facility] Comment on above: Performed By: #### M AG #### [facility] [address], [place] [address] Immature Grans 1.00 % Normal [facility] Comment on above: Performed By: #### M AG #### [facility] [address], [place] [address] Lymphocytes (Bld) [#/Vol] 1.39 thou/cmm Normal 0.84-2. 85 [facility] Comment on above: Performed By: #### M AG #### [facility] [address], [place] [address] Lymphocytes/100 WBC (Bld) 7.4 % Normal [facility] Comment on above: Performed By: #### M AG #### [facility] [address], [place] [address] Monocytes/100 WBC (Bld) 7.7 % Normal [facility] Comment on above: Performed By: #### M AG #### [facility] [address], [place] [address] Seg Neutrophil 82.6 % Normal [facility] Comment on above: Performed By: #### M AG #### [facility] [address], [place] [address] Erythrocyte distribution width (RBC) [Ratio] 13.2 % Normal 11.6-14.4 [facility] Comment on above: Performed By: #### M AG #### [facility] [address] [place] [address] Hematocrit (Bld) [Volume fraction] 31.0 % Low 40.1-51.0 [facility] Comment on above: Performed By: #### M AG #### [facility] [address] [place] [address] Hemoglobin (Bld) [Mass/Vol] 10.2 g/dL Low 13.7-17.5 [facility] Comment on above: Performed By: #### M AG #### [facility] [address] [place] [address] MCH (RBC) [Entitic mass] 28.7 pg Normal 25.7-32.2 [facility] Comment on above: Performed By: #### M AG #### [place] [address] MCHC (RBC) [Mass/Vol] 32.9 % Normal 32.3-36.5 [facility] Comment on above: Performed By: #### M AG #### [facility] [address] [place] [address] MCV (RBC) [Entitic vol] 87.1 fL Normal 83.2-95.6 [facility] Comment on above: Performed By: #### M AG #### [facility] [address] [place] [address] Platelet mean volume (Bld) [Entitic vol] 9.6 fL Normal 8.7-12.0 [facility] Comment on above: Performed By: #### M AG #### [facility] [address] [place] [address] Platelets (Bld) [#/Vol] 421 thou/cmm High 141-365 [facility] Comment on above: Performed By: #### M AG #### [facility] [address] [place] [address] RBC (Bld) [#/Vol] 3.56 mil/cmm Low 4.63-6.08 [facility] Comment on above: Performed By: #### M AG #### [facility] [address] [place] [address] RDW SD 42.0 fl Normal 36.1-45.8 [facility] Comment on above: Performed By: #### M AG #### [facility] [address] [place] [address] WBC (Bld) [#/Vol] 18.79 thou/cmm High 4.23-9.07 [facility] Comment on above: Performed By: #### M AG #### [place] [address] Hgb A1con 08-23-2019 HbA1c (Bld) [Mass fraction] 9.8 % High 4.2-6.3 [facility] Comment on above: Result Comment: Meth od is National Glycohemoglobin Standardization Program (NGSP) compliant. Performed By: #### M AG #### [place] [address] HbA1c (Bld) [Mass fraction] 235 mg/dl Normal [facility] Comment on above: Performed By: #### M AG #### [place] [address] MRSA Screenon 08-23-2019 MRSA DNA ARIELLE+probe Ql (Unsp spec) Test performed at [facility] No MRSA detected. Normal [facility] Comment on above: Performed By: #### F ERR #### [place] [address] Magnesium Bloodon 08-23-2019 Magnesium [Mass/Vol] 0.9 mg/dL Critically low 1.6-2.6 [facility] Comment on above: Performed By: #### M AG #### [place] [address] NURSING PROGon 08-23-2019 NURSING PROG HNO ID: [id number] Author: Karl SantiagoRn) KAVIN Russell Service: Nursing Author Type: Registered Nurse Type: Nursing Progress Note Filed: 08/23/2019 9:27 AM Note Text: Fall risk protocol initiated. Fall risk wrist band applied and yellow sock applied to left foot. SR up x2. Call light in reach. Urinal offered. Normal [facility] NURSING PROG HNO ID: [id number] Author: Marita SantiagoRn) KAVIN Aponte Service: Nursing Author Type: Registered Nurse Type: Nursing Progress Note Filed: 08/23/2019 8:09 AM Note Text: Tech here to take pt to presurgery unit . Pt showing no signs of distress voicing no complaints. Pt taken via cart to presurgery unit Normal [facility] NURSING PROG HNO ID: [id number] Author: Marita SantiagoRn) KAVIN Aponte Service: Nursing [...] she gets here. Daughter states ubderstanding Normal [facility] [facility] NUR[facility] PROG HNO ID: [id number] Author: Marita Izquierdo) KAVIN Aponte Service: Nursing Author Type: Registered Nurse Type: Nursing Progress Note Filed: 08/23/2019 8:11 AM Note Text: Dr. Figueroa into see pt. Dr. Figueroa informing pt that surgery has been moved up to this morning. Pt states understanding. Normal [facility] OPERATIVE NOon 08-23-2019 OPERATIVE NO HNO ID: [id number] Author: Gordo Figueroa Service: Vascular Surgery Author Type: Physician Type: Operative Report Filed: 08/23/2019 1:07 PM Note Text: [facility] - Operative Report ELIZABETH MODI : 1940 AGE: 79. SEX: M PATIENT TYPE: I [place] [facility] [place] LOCATION: [facility] ATTENDING PHYSICIAN: Ara Singer M.D. CSN NUMBER: [id number] DATE OF SURGERY/PROCEDURE: 08/23/2019 INCISION/PROCEDURE START TIME: 8:42 AM INCISION CLOSE/PROCEDURE END TIME: 9:04 AM PREOPERATIVE DIAGNOSIS: Gangrenous changes of the right foot with gas in the subcutaneous tissues. POSTOPERATIVE DIAGNOSIS: Gangrenous changes of the right foot with gas in the subcutaneous tissues. SURGEON: Gordo Figueroa MD QUALITY ASSURANCE SPECIALIST: 1. Jennifer Crooks M.D. 2. Irvin Walker, surgical manager. SURGERY/PROCEDURE: Guilwilnerine right above ankle/below-knee amputation. ANESTHESIA: General. HISTORY: [...] area in stable condition. Gordo Figueroa MD DJW:[id number] /[id number] [facility] PROGRESSon 08-23-2019 PROGRESS HNO ID: [id number] Author: Sue Bianchi Service: Hospital Medicine Author Type: Physician Type: Progress Notes Filed: 08/23/2019 3:48 PM Note Text: DEPARTMENT OF HOSPITAL MEDICINE PROGRESS NOTE SERVICE DATE: 08/23/2019 SERVICE TIME: 12:20 PM Hospital Medicine/Primary Attending: Sue Bianchi, DO NIGHT AND WEEKEND COVERAGE: After 7pm, please call cross cover pager #[phone] Subjective INTERVAL HPI: Patient seen and examined. 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 2 to 12 grossly intact, no focal motor or sensory deficits noted, speech normal Psych- A ANDO x 3, mood normal Skin- R lower extremity dressing intact, wound care notes and images reviewed Lines, Drains, and Airways Line Peripheral 08/21/192238 Assessment Left Antecubital 20 Gauge 1 day Peripheral 08/21/192239 Assessment Right Antecubital 20 Gauge 1 day [...] 08/21/191914 vte non-pharmacologic prophylaxis - none indicated ([place]) 08/21/191914 activity - mobilize patient ([place] VTE Prophylaxis: VTE prophylaxis appropriate Disposition: Home with [facility] Plan of care discussed with: Provider, RN, Patient SIGNATURE: Sue Bianchi DO PATIENT NAME: Elizabeth Modi DATE: August 23, 2019 TIME:12:20 PM PAGER/CONTACT #: [phone] [facility] PROGRESS HNO ID: [id number] Author: Tom Prescott DO Service: General Surgery [...] questions or concerns Mon-Fri 6a-5p please page [phone]. After 5pm and on Weekends and Holidays, please page [phone] if in ICU or [phone] if on RNF. Subjective SUBJECTIVE: Patient seen [...] Room Air IANDO: Date 08/22/19699 - 08/23/19 0608/23/19699 - 08/24/19 0659 Shift 1832-9351 3899-7991 9631-0894 24 Hour Total 4565-1134 8091-3174 6471-9497 24 Hour Total INTAKE PO 240 240 PO 240 240 Shift Total 240 240 OUTPUT Urine 500 322 363 8445 Void (ml) 500 927 833 2843 Shift Total 500 621 415 8785 Weight (kg) 85 85 85 85 85 [...] and plan discussed with attending: Dr. Figueroa, sales representative publications for Dr. Parmar SIGNATURE: Tom Prescott DO PATIENT NAME: Elizabeth Modi DATE: August 23, 2019 TIME: 8:02 AM Vascular AND Thoracic Surgery Service Pager: For questions or concerns Mon-Fri 6a-5p please page [phone]. After 5pm and on Weekends and Holidays, please page [phone] if in ICU or [phone] [address] on [address]. [address] [facility] PROGRESS HNO ID: [id number] Author: Cayetano Zapata MD Service: Orthopaedic Surgery [...] DATE: 08/23/19 TIME: 6:27 AM PAGER/CONTACT #: [phone] [facility] PROGRESS HNO ID: [id number] Author: Tom Prescott DO Service: General Surgery [...] ICU or 2[address] [facility] Phosphorus Bloodon 0 Phosphate [Mass/Vol] 2.1 mg/dL Low 2.5-4.9 [facility] Comment on above: Performed By: #### M AG #### [place] [address] Vancomycin,Randomon 08-23-19 20 INR Coag (Bld) [Relative time] 22.0 mg/L Normal [facility] Comment on above: Result Comment: Trou gh 10.0-20.0 mg/L Peak 18.0-40.0 mg/L Performed By: #### C _ANA #### [place] [address] CONSULTon 08-22-2019 CONSULT HNO ID: [id number] Author: Paulo Landis Service: Infectious Disease Author [...] no longer doing that Employment: work with [employer] CURRENT ANTIBIOTICS: Zosyn Clindamycin vancomycin Current other [...] 22, 2019 TIME: 1:42 PM PAGER/CONTACT #: [phone] [facility] CONSULT HNO ID: [id number] Author: Yadi Badillo Service: Orthopaedic Surgery Author Type: Physician Type: Consults Filed: 08/22/2019 6:41 PM Note Text: ORTHOPAEDIC SURGERY CONSULT Pt: ELIZABETH OMDI Date of Consultation: 08/22/2019 Physician Consulted: Dr. Badillo Reason for Consultation: Necrotic foot HPI: 79 year old male presented to [facility] on 08/21/2019 with complaints of changes to [...] August 22, 2019 Time: 6:[address] [facility] CONSULT HNO ID: [id number] Author: Ana Luisa Crooks Service: General Surgery [...] questions or concerns Mon-Fri 6a-5p please page [phone]. After 5pm and on Weekends and Holidays, please page [phone] if in ICU or [phone] if on RNF. Service date: 08/22/2019 Service time: 4:01 AM Reason for consult: foot wounds Nature of consult: routine Subjective HPI Mr. Modi is a 79 year old male with necrotic L foot. Patient reports that he has only noticed this over the last week. Initially presented to [place] for this reason and was transferred to [facility] for care. Denies pain and states he [...] questions or concerns Mon-Fri 6a-5p please page [phone]. After 5pm and on Weekends and Holidays, please page [phone] if in ICU or [phone] [address] [facility] CONSULT PROGon 08-22-2019 CONSULT PROG HNO ID: [id number] Author: Adali Murry Service: Wound Care Team Author Type: Nurse Specialist Type: Consult Progress Note Filed: 08/22/2019 11:19 AM Note Text: WOUND CARE CONSULT SENIOR CONSUMER INSIGHTS CONSULTANT NOTE SERVICE DATE: 08/22/2019 SERVICE TIME: 0910 TIME SPENT (minutes): 30 REASON FOR CONSULT: Eval R foot necrosis/wound CHIEF COMPLAINT: c/o necrotic toes and tissue to R foot. Subjective HISTORY OF PRESENT ILLNESS: Mr. Modi is a 79 year old male who is seen today with Yolanda Jackman Wound/investigations director, and presented to hospital with complaints of [...] found under the Get Images tab on [facility]. Photos are uploaded by the wound caretaker resort and may not be immediately available for viewing. Contact the wound and ostomy care department with questions. SIGNATURE: Adali Murry APRN.FUR GLAZER PATIENT NAME: Elizabeth Modi DATE: August 22, 2019 TIME: 11:03 AM CONTACT#: [id number] [facility] CONSULT PROG HNO ID: [id number] Author: Jose Walton (Pharmacist) Service: Pharmacy Author [...] have any questions, please contact Pharmacy at [phone]. Age: [age] year old Allergies: ALLERGIES No [...] results found for: PEGGY Walton, Pharmacist Pager: [phone] [facility] Comprehensive Panelon 2019 ALP [Catalytic activity/Vol] 107 U/L Normal 45-117 [facility] Comment on above: Performed By: #### C _ANA #### [facility] [address], [place] [address] Bilirubin [Mass/Vol] 0.5 mg/dL Normal 0.2-1.0 [facility] Comment on above: Result Comment: Use of this assay is not recommended for patients undergoing treatment with eltrombopag due to the potential for falsely elevated results. Performed By: #### C _ANA #### [facility] [address], [place] [address] Protein [Mass/Vol] 6.4 g/dL Normal 6.4-8.2 [facility] Comment on above: Performed By: #### C _ANA #### [address] [address] ALT [Catalytic activity/Vol] 73 U/L Normal 12-78 [facility] Comment on above: Performed By: #### C _ANA #### [address] [address] AST [Catalytic activity/Vol] 81 U/L High 15-37 [facility] Comment on above: Performed By: #### C _ANA #### [address] [address] Creatinine [Mass/Vol] 0.95 mg/dL Normal 0.67-1.17 [facility] Comment on above: Result Comment: Use of this assay is not recommended for patients undergoing treatment with phenindione, due to the potential for falsely depressed results. Performed By: #### C _ANA #### [facility] [address], [place] [address] Albumin [Mass/Vol] 1.7 g/dL Low 3.4-5.0 [facility] Comment on above: Performed By: #### C _ANA #### [address] [address] Anion gap [Moles/Vol] 12 mmol/L Normal 8-16 [facility] Comment on above: Performed By: #### C _ANA #### [facility] [address], [place] [address] Calcium [Mass/Vol] 7.1 mg/dL Low 8.5-10.1 [facility] Comment on above: Performed By: #### C _ANA #### [facility] [address], [place] [address] CO2 [Moles/Vol] 21 mmol/L Normal 21-32 [facility] Comment on above: Performed By: #### C _ANA #### [facility] [address], [place] [address] Glucose [Mass/Vol] 218 mg/dL High 70-99 [facility] Comment on above: Performed By: #### C _ANA #### [facility] [address] [place] [address] Urea nitrogen [Mass/Vol] 31 mg/dL High 7-18 [facility] Comment on above: Performed By: #### C _ANA #### [facility] [address], [place] [address] Chloride [Moles/Vol] 104 mmol/L Normal 98-107 [facility] Comment on above: Performed By: #### C _ANA #### [facility] [address], [place] [address] Potassium [Moles/Vol] 4.1 mmol/L Normal 3.5-5.1 [facility] Comment on above: Performed By: #### C _ANA #### [facility] [address], [place] [address] Sodium [Moles/Vol] 133 mmol/L Low 136-145 [facility] Comment on above: Performed By: #### C _ANA #### [facility] [address], [place] [address] Cult and Smr CAROLINE and AERon 0 08-22-2019 Cult and Smr CAROLINE and AER Test performed at [facility] Rare Mixed skin javier. Moderate Mixed anaerobic javier. No Bacteroides fragilis group isolated. No Clostridium perfringens isolated. Many Gram positive cocci No WBC seen Rare Squamous epithelial cells Normal [facility] Comment on above: Performed By: #### C _ANA #### [facility] [address] [place] [address] Ferritinon 08-22-2019 Ferritin [Mass/Vol] 1342.20 ng/mL High 26.00-3 88.0 0 [facility] Comment on above: Performed By: #### F ERR #### [facility] [address] [place] [address] Folateon 08-22-2019 Folate 3.80 ng/mL Normal 3.10-17.50 [facility] Comment on above: Performed By: #### P 8 #### [facility] [address] [place] [address] Hemogramon 08-22-2019 Erythrocyte distribution width (RBC) [Ratio] 13.2 % Normal 11.6-14.4 [facility] Comment on above: Performed By: #### F ERR #### [place] [address] Hematocrit (Bld) [Volume fraction] 28.4 % Low 40.1-51.0 [facility] Comment on above: Performed By: #### F ERR #### [facility] [address] [place] [address] Hemoglobin (Bld) [Mass/Vol] 9.4 g/dL Low 13.7-17.5 [facility] Comment on above: Performed By: #### F ERR #### [facility] [address] [place] [address] MCH (RBC) [Entitic mass] 28.7 pg Normal 25.7-32.2 [facility] Comment on above: Performed By: #### F ERR #### [facility] [address] [place] [address] MCHC (RBC) [Mass/Vol] 33.1 % Normal 32.3-36.5 [facility] Comment on above: Performed By: #### F ERR #### [facility] [address] [place] [address] MCV (RBC) [Entitic vol] 86.9 fL Normal 83.2-95.6 [facility] Comment on above: Performed By: #### F ERR #### [facility] [address] [place] [address] Platelet mean volume (Bld) [Entitic vol] 9.7 fL Normal 8.7-12.0 [facility] Comment on above: Performed By: #### F ERR #### [facility] [address] [place] [address] Platelets (Bld) [#/Vol] 380 thou/cmm High 141-365 [facility] Comment on above: Performed By: #### F ERR #### [facility] [address] [place] [address] RBC (Bld) [#/Vol] 3.27 mil/cmm Low 4.63-6.08 [facility] Comment on above: Performed By: #### F ERR #### [facility] [address] [place] [address] RDW SD 41.6 fl Normal 36.1-45.8 [facility] Comment on above: Performed By: #### F ERR #### [facility] [address] [place] [address] WBC (Bld) [#/Vol] 19.76 thou/cmm High 4.23-9.07 [facility] Comment on above: Performed By: #### F ERR #### [facility] [address] [place] [address] Iron % Saturationon 08-22-19 20 Iron % Saturation 15 % Low 20-55 [facility] Comment on above: Performed By: #### M AG #### [facility] [address] [place] [address] Iron Binding Cap. 150 ug/dL Low 250-450 [facility] Comment on above: Performed By: #### M AG #### [place] [address] Iron Serum 23 ug/dL Low 65-175 [facility] Comment on above: Performed By: #### M AG #### [place] [address] MRI FOOT/TOES WO IVCON RTon 08-22-2019 MRI FOOT/TOES WO IVCON RT * * *Final Rep ort* * * DATE OF EXAM: Aug 22 2019 12:23PM AKRandi 0195 - MRI FOOT/TOES WO IVCON RT / [...] be reactive or related to early osteomyelitis. Maintainer Central Office: ONEL Transcribe Date/Time: Aug 22 2019 12:47P Dictated by : PRISCILA RUELAS MD This examination was interpreted and the report reviewed and electronically signed by: PRISCILA RUELAS MD on Aug 22 2019 1:06PM EST Normal [facility] NURSING PROGon 08-22-2019 NURSING PROG HNO ID: [id number] Author: Marita (Rn) KAVIN Aponte Service: Nursing Author Type: Registered Nurse Type: Nursing Progress Note Filed: 08/22/2019 2:17 PM Note Text: Dr. Parmar into see pt. Pt to be scheduled for angiogram tomorrow. Pt states understanding of procedure Normal [facility] NUTRITIONon 08-22-2019 NUTRITION HNO ID: [id number] Author: Marisol Zimmerman) ALEIDA Falcon Service: Nutrition [...] of fat/muscle stores;Patient/family self-report Estimated kilocalorie needs: 5273-3240 Calorie Calculation Method: 30-35 kcals/kg Estimated protein [...] Signs of Inflammation: Hyperglycemia;Hypoalbu minemia;Imaging studies SIGNATURE: Kacie Marquez Tank Washer PATIENT NAME: Elizabeth Modi DATE: August 22, 2019 TIME: 2:27 PM PAGER: [phone] [facility] PROGRESSon 08-22-2019 PROGRESS HNO ID: [id number] Author: Sue Bianchi Service: Hospital Medicine Author Type: Physician Type: Progress Notes Filed: 08/22/2019 3:29 PM Note Text: DEPARTMENT OF HOSPITAL MEDICINE PROGRESS NOTE SERVICE DATE: 08/22/2019 SERVICE TIME: 2:32 PM Hospital Medicine/Primary Attending: Sue Bianchi, DO NIGHT AND WEEKEND COVERAGE: After 7pm, please call cross cover pager #[phone] Subjective INTERVAL HPI: Patient seen and examined. 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 2 to 12 grossly intact, no focal motor or sensory deficits noted, speech normal Psych- A ANDO x 3, mood normal Skin- R lower extremity dressing intact, wound care notes and images reviewed Lines, Drains, and Airways Line Peripheral 08/21/192238 Assessment Left Antecubital 20 Gauge less than 1 day Peripheral 08/21/190 Assessment Right Antecubital 20 Gauge less than [...] 08/21/191914 vte non-pharmacologic prophylaxis - none indicated ([place]) 08/21/191914 activity - mobilize patient ([place]) VTE Prophylaxis: VTE prophylaxis appropriate Disposition: Home with [facility] Plan of care discussed with: Provider, RN, Patient SIGNATURE: Sue Bianchi DO PATIENT NAME: Elizabeth Modi DATE: August 22, 2019 TIME: 2:32 PM PAGER/CONTACT #: [phone] [facility] US ARTERIAL PVR LOWERon US ARTERIAL PVR LOWER * * *Final Report* * * DATE OF EXAM: Aug 22 2019 10:00AM A2U 1107 - US ARTERIAL PVR LOWER / PROCEDURE REASON: necrotic right foot * * * * Physician Interpretation * * * * Non-Invasive Vascular Laboratory [facility] Lower Extremity Arterial Physiology Study Bilateral/Complete Date [...] Interpreting physician: Ryan Allen MD Final RP Maintainer Central Office: RICHARD Transcribe Date/Time: Aug 22 2019 9:04A Dictated by : RYAN ALLEN MD This examination was interpreted and the report reviewed and electronically signed by: RYAN ALLEN MD on Aug 22 2019 11:41AM EST Normal [facility] Vitamin B12on 08-22-2019 Cobalamin (Vitamin B12) [Mass/Vol] 944 pg/mL Normal 193-986 [facility] Comment on above: Performed By: #### P 8 #### [place] [address] CONSULT PROGon 08-21-2019 CONSULT PROG HNO ID: [id number] Author: Rahat Lemus (Pharmacist) Service: Pharmacy Author Type: Pharmacist Type: Consult Progress Note Filed: 08/21/2019 9:20 PM Note Text: Renal Dose Monitoring 1. Estimated CrCl: 52 (calculated from previous lab reported from of 1.2 and using IBW) 2. Recommendations: Zosyn 3.375g Dose:No Change Frequency:Increase frequency to Q6H - Rationale: Patient CrCl is greater than 40 and being infused over 30 [address] [phone] [facility] CONSULT PROG HNO ID: [id number] Author: Rahat Lemus (Pharmacist) Service: Pharmacy Author [...] have any questions[place] [phone]. Age: [age] year old Allergies: ALLERGIES No [...] results found for: PEGGY LEMUS, PHARMACIST [facility] HISTORY PHYSICALon 0 HISTORY PHYSICAL HNO ID: [id number] Author: Karyna Perez Service: Hospital Medicine Author [...] After 7pm, please call cross cover pager #[phone] Subjective CHIEF COMPLAINT / REASON FOR ADMISSION: Right foot gangrene HPI: This is a 79 year old male has a past medical history of DM (diabetes mellitus) (HCC), Dyslipidemia, HTN (hypertension), and Hypothyroidism. sent as a transfer from [facility] for blackish coloration of multiple toe and [...] the right foot and was sent to [facility] for further evaluation.For this illness, patient's functional [...] this note may have been generated using [employer] voice recognition software. Reasonable efforts were made to correct any dictation errors that resulted due to the programming of this software but some may still be present. Normal [facility] HOSPon 08-21-2019 HOSP Patient:Elizabeth Modi MRN: Height:5' [...] MEDICINE HISTORY AND PHYSICAL EXAM AUTHOR: Karyna Perze MD PATIENT NAME: Elizabeth Modi DATE: August 21, 2019 , : 1940 Primary Care Physician: No primary care provider on file. NIGHT AND WEEKEND COVERAGE: From 7am - 7pm, please call Sound Physician on duty After 7pm, please call cross cover pager #[phone] Subjective CHIEF COMPLAINT / REASON FOR ADMISSION: Right foot gangrene HPI: This is a 79 year old male has a past medical history of DM (diabetes mellitus) (HCC), Dyslipidemia, HTN (hypertension), and Hypothyroidism. sent as a transfer from [facility] for blackish coloration of multiple toe and [...] the right foot and was sent to [facility] for further evaluation.For this illness, patient's functional [...] this note may have been generated using [employer] voice recognition software. Reasonable efforts were made [...] [place] any questions[place] [phone]. Age: [age] year old Allergies: ALLERGIES No [...] and being infused over 30 minutes Pharmacy [phone] Ana Luisa Crooks MD 08/22/2019 6:04 AM [...] questions or concerns Mon-Fri 6a-5p please page [phone]. After 5pm and on Weekends and Holidays, please page [phone] if in ICU or [phone] if on RNF. Service date: 08/22/2019 Service time: 4:01 AM Reason for consult: foot wounds Nature of consult: routine Subjective HPI Mr. Modi is a 79 year old male with necrotic L foot. Patient reports that he has only noticed this over the last week. Initially presented to [place] for this reason and was transferred to [facility] for care. Denies pain and states he [...] 2174 if on RNF. Previous Version Jose Walton, Pharmacist 08/22/2019 9:21 AM Addendum PHARMACY VANCOMYCIN [...] have any questions, please contact Pharmacy at [phone]. Age: [age] year old Allergies: ALLERGIES No [...] results found for: PEGGY Walton, Pharmacist Pager: [phone] Previous Version Adali Murry APRN.FUR GLAZER 08/22/2019 11:19 AM Signed WOUND CARE CONSULT SENIOR CONSUMER INSIGHTS CONSULTANT NOTE SERVICE DATE: 08/22/2019 SERVICE TIME: 0910 TIME SPENT (minutes): 30 REASON FOR CONSULT: Eval R foot necrosis/wound CHIEF COMPLAINT: c/o necrotic toes and tissue to R foot. Subjective HISTORY OF PRESENT ILLNESS: Mr. Modi is a 79 year old male who is seen today with Yolanda Jackman Wound/investigations director, and presented to hospital with complaints of [...] found under the Get Images tab on [facility]. Photos are uploaded by the wound caretaker resort and may not be immediately available for viewing. Contact the wound and ostomy care department with questions. SIGNATURE: Adali Murry APRN.CNS PATIENT NAME: Elizabeth Modi DATE: August 22, 2019 TIME: 11:03 AM CONTACT#: [id number] Yadi Badillo DPM 08/22/2019 6:41 PM Signed ORTHOPAEDIC SURGERY CONSULT Pt: ELIZABETH MODI Date of Consultation: 08/22/2019 Physician Consulted: Dr. Badillo Reason for Consultation: Necrotic foot HPI: 79 year old male presented to [facility] on 08/21/2019 with complaints of changes to [...] no longer doing that Employment: work with [employer] CURRENT ANTIBIOTICS: Zosyn Clindamycin vancomycin Current other [...] of fat/muscle stores;Patient/family self-report Estimated kilocalorie needs: 1613-0001 Calorie Calculation Method: 30-35 kcals/kg Estimated protein [...] Signs of Inflammation: Hyperglycemia;Hypoalbu minemia;Imaging studies SIGNATURE: Kacie Marquez Tank Washer PATIENT NAME: Elizabeth Modi DATE: August 22, 2019 TIME: 2:27 PM PAGER: [phone] Previous Version Sue Bianchi DO 08/22/2019 3:29 PM Signed DEPARTMENT OF HOSPITAL MEDICINE PROGRESS NOTE SERVICE DATE: 08/22/2019 SERVICE TIME: 2:32 PM Hospital Medicine/Primary Attending: Sue Bianchi, DO NIGHT AND WEEKEND COVERAGE: After 7pm, please call cross cover pager [phone] Subjective INTERVAL HPI: Patient seen and examined. 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 2 to 12 grossly intact, no focal motor or sensory deficits noted, speech normal Psych- A ANDO x 3, mood normal Skin- R lower extremity dressing intact, wound care notes and images reviewed Lines, Drains, and Airways Line Peripheral 08/21/199 Assessment Left Antecubital 20 Gauge less than [...] 08/21/191914 vte non-pharmacologic prophylaxis - none indicated ([place]) 08/21/191914 activity - mobilize patient ([place]) VTE Prophylaxis: VTE prophylaxis appropriate Disposition: Home with [facility] Plan of care discussed with: Provider, RN, Patient SIGNATURE: Sue Bianchi DO PATIENT NAME: Elizabeth Modi DATE: August 22, 2019 TIME: 2:32 PM PAGER/CONTACT #: [phone] Gordo Figueroa MD 08/23/2019 1:07 PM Signed [facility] - Operative Report ELIZABETH MODI : 1940 AGE: 79. SEX: M PATIENT TYPE: I [place] [facility] [place] [facility] LOCATION: [id number] ATTENDING PHYSICIAN: Ara Singer M.D. CSN NUMBER: [id number] DATE OF SURGERY/PROCEDURE: 08/23/2019 INCISION/PROCEDURE START TIME: 8:42 AM INCISION CLOSE/PROCEDURE END TIME: 9:04 AM PREOPERATIVE DIAGNOSIS: Gangrenous changes of the right foot with gas in the subcutaneous tissues. POSTOPERATIVE DIAGNOSIS: Gangrenous changes of the right foot with gas in the subcutaneous tissues. SURGEON: Gordo Figueroa MD QUALITY ASSURANCE SPECIALIST: 1. Jennifer Crooks M.D. 2. Irvin Walker, surgical manager. SURGERY/PROCEDURE: Guillotine right above ankle/below-knee amputation. ANESTHESIA: [...] the recovery area in stable condition. MD DESMOND Ley:[id number] /[id number] Previous Version Doris Eden MD 08/25/2019 9:16 AM Signed [facility] - Consultation PATIENT NAME: ELIZABETH MODI [facility]: [id number] DATE OF : 1940 SEX/AGE: M/79 PATIENT TYPE: I [facility] [place] LOCATION: [id number] DATE OF SERVICE: 08/23/2019 TIME OF SERVICE: 01:15 PM REFERRING PHYSICIAN: Dexter Chávez MD REASON FOR CONSULTATION: Uncontrolled diabetes. 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 Patient [...] affording Lantus 10. Doris Eden MD Endocrinology SM:modserene /[id number] Tom Prescott DO, 08/23/2019 1:43 AM Signed [...] Units SUBCUTANEOUS q 12 H Mohkamlesh Diego Mosque 5,000 Units at 08/22/19 0807 - [MAR Hold due to Transfer] aluminum-magnesium hydroxide-simethicone 200-200-20 mg/5 mL 30 mL (MAALOX,MYLANTA,MAG-AL PLUS) 30 mL ORAL DAILY PRN Mohammad F Mosque - [MAR Hold due to Transfer] ondansetron 4 mg tab(s) (ZOFRAN) 4 mg ORAL q 6 H PRN Mohammad F Mosque Or - [MAR Hold due to Transfer] ondansetron (PF) 4 mg injection (ZOFRAN) 4 mg INTRAVENOUS q 6 H PRN Mohammad F Mosque - [MAR Hold due to Transfer] polyethylene glycol 3350 17 g packet (MIRALAX, GLYCOLAX) 17 g ORAL DAILY PRN Mohammad F Mosque - [MAR Hold due to Transfer] docusate sodium 100 mg cap(s) (COLACE) 100 mg ORAL BID PRN Mohammad F Mosque - [MAR Hold due to Transfer] magnesium hydroxide 400 mg/5 mL 30 mL (MOM) 30 mL ORAL DAILY PRN Mohammad F Mosque - [MAR Hold due to Transfer] bisacodyl 10 mg suppository (DULCOLAX) 10 mg RECTAL DAILY PRN Mohammad F Mosque - [MAR Hold due to Transfer] acetaminophen 650 mg tab(s) (TYLENOL) 650 mg ORAL q 6 H PRN Mohammad F Mosque - [MAR Hold due to Transfer] atorvastatin 40 mg tab(s) (LIPITOR) 40 mg ORAL DAILY Mohammad F Mosque 40 mg at 08/22/192009 - [MAR Hold due to Transfer] lisinopril 10 mg tab(s) (ZESTRIL, PRINIVIL) 10 mg ORAL DAILY Mohammad F Mosque 10 mg at 08/22/19 0807 - [MAR Hold due to Transfer] levothyroxine 25 mcg tab(s) (SYNTHROID) 25 mcg ORAL DAILY Mohammad F Mosque 25 mcg at 08/22/19 0600 - [MAR Hold due to Transfer] insulin lispro pen (rapid acting) (HumaLOG KWIKPEN) SUBCUTANEOUS w MEALS AND HS Mohammad F Mosque 1 Units at 08/22/192128 - [MAR Hold due to Transfer] dextrose 40 % 15 g 15 g ORAL PRN Mohammad F Mosque Or - [MAR Hold due to Transfer] glucagon 1 mg injection (GLUCAGEN) 1 mg INTRAMUSCULAR PRN Mohammad F Mosque Or - [MAR Hold due to Transfer] dextrose 50% in water 25 mL syringe 12.5 g INTRAVENOUS PRN Mohammad F Mosque - [MAR Hold due to Transfer] vancomycin iv piggyback 1.25 g in D5W 250 mL (VANCOCIN) 1.25 g INTRAVENOUS q 12 HR Mohammad F Mosque 250 mL/hr at 08/22/192009 1.25 g at 08/22/192009 - [MAR Hold due to Transfer] vancomycin dosing and monitoring per pharmacy OTHER As Directed Mohammad F Mosque - [MAR Hold due to Transfer] piperacillin-tazobacta m iv piggyback 3.375 g in dextrose (iso-osmotic) 50 mL (ZOSYN) 3.375 g INTRAVENOUS q 6 H Mohammad F Mosque 100 mL/hr at 08/23/19 0549 3.375 g at 08/23/19 0549 - [MAR Hold due to Transfer] clindamycin iv piggyback 600 mg in D5W 50 mL (CLEOCIN) 600 mg INTRAVENOUS q 6 H Mohammad F Mosque 100 mL/hr at 08/23/19 0549 600 mg [...] August 23, 2019 TIME: 8:32 AM CSN: [id number] Previous Version Tom DO Prescott DO 08/23/2019 8:14 AM Attested Attestation signed [...] 08/22/19699 - 08/23/1965808/23/19699 - 08/24/19 0659 Shift 2548-7213 7885-3401 5801-9660 24 Hour Total 5245-1265 4847-6144 8195-7632 24 Hour Total INTAKE PO 240 240 PO 240 240 Shift Total 240 240 OUTPUT Urine 500 445 486 1982 Void (ml) 500 011 243 4714 Shift Total 500 030 433 0003 Weight (kg) 85 85 85 85 85 [...] GLYCOLAX) 17 g ORAL DAILY PRN - [AUG Hold due to Transfer] docusate sodium 100 mg cap(s) (COLACE) 100 mg ORAL BID PRN - [MAR Hold due to Transfer] magnesium hydroxide 400 mg/5 mL 30 mL (MOM) 30 mL ORAL DAILY PRN - [AUG Hold due to Transfer] bisacodyl 10 mg suppository (DULCOLAX) 10 mg RECTAL DAILY PRN - [AUG Hold due to Transfer] acetaminophen 650 mg tab(s) (TYLENOL) 650 mg ORAL q 6 H PRN - [AUG Hold due to Transfer] atorvastatin 40 mg tab(s) (LIPITOR) 40 mg ORAL DAILY - [AUG Hold due to Transfer] lisinopril 10 mg tab(s) (ZESTRIL, PRINIVIL) 10 mg ORAL DAILY - [MAR Hold due to Transfer] levothyroxine 25 mcg tab(s) (SYNTHROID) 25 mcg ORAL DAILY - [MAR Hold due to Transfer] insulin lispro pen (rapid acting) (HumaLOG KWIKPEN) SUBCUTANEOUS w MEALS AND HS - [AUG Hold due to Transfer] dextrose 40 % [...] monitoring per pharmacy OTHER As Directed - [AUG Hold due to Transfer] piperacillin-tazobacta m iv [...] and plan discussed with attending: Dr. Figueroa, sales representative publications for Dr. Parmar SIGNATURE: Tom Prescott DO [...] the assistance of the resident and the surgical manager BRIEF OP / PROCEDURE NOTE LOG ID: [id number] Surgery/Procedure Date: 08/23/2019 Incision/Procedure Start Time: 8:42 AM Incision Close/Procedure End Time: 9:04 AM Surgeon(s)/Procedurali st(s) and [facility] Associate Professor(s): Surgeon(s) and Role: * Gordo Figueroa - [...] After 7pm, please call cross cover pager #[phone] Subjective INTERVAL HPI: Patient seen and examined. 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 2 to 12 grossly intact, no focal motor or sensory deficits noted, speech normal Psych- A ANDO x 3, mood normal Skin- R lower extremity dressing intact, wound care notes and images reviewed Lines, Drains, and Airways Line Peripheral 08/21/19 2239 Assessment Left Antecubital 20 Gauge 1 day [...] indicated (fl,oh) 08/21/191914 activity - mobilize patient (il,va) VTE Prophylaxis: VTE prophylaxis appropriate Disposition: Home with [facility] Plan of care discussed with: Provider, RN, Patient SIGNATURE: Sue Bianchi DO PATIENT NAME: Elizabeth Modi DATE: August 23, 2019 TIME:12:20 PM PAGER/CONTACT #: [phone] [phone] Doris Eden MD 08/23/2019 1:21 PM Signed [...] Inpatient Needs Prior to Discharge: OT/PT Evaluation;Discharge Transportation;[facility] Facility;Precertificat ion [facility] 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 No Is Patient Psychosocially Complex?: No ASSESSMENT AND PLAN: Medical Needs: Medical Needs: None Psychosocial Needs: Psychosocial Needs: None FREEDOM OF CHOICE EXPLAINED: [place] of Choice Given: Yes Level of Care Discussed: Inpatient Rehab Facility Financial Disclosure Provided: Yes Financial Disclosure Comments: ESR Provider List: (Pt refused list- would like [facility]. ) POTENTIAL TRANSITION PLANS Rehab Facility Spoke with pt at the bedside. 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 Pt states that he has a PCP in [place]. Pt is s/p right foot amp. Anticipate AR needs at d/c. Await PT/OT evals. Pt would like [facility]- referral sent. Pt will need auth and likely transport at d/c. Will follow. SIGNATURE: Tami Patricio RN PATIENT NAME: Elizabeth Modi DATE: August 23, 2019 TIME: 3:18 PM PAGER/CONTACT #: [phone] Paulo Landis MD 08/23/2019 3:55 PM Addendum [...] labs Paulo Landis MD Infectious Disease Respiratory Manter Pager: [phone] August 23, 2019 Previous Version ISAC NAVARRO [...] have any questions, [place] [phone]. Age: [age] year old Allergies: ALLERGIES No [...] questions or concerns Mon-Fri 6a-5p please page [phone]. After 5pm and on Weekends and Holidays, please page [phone] if in ICU or [phone] if on RNF. Subjective SUBJECTIVE: Denies leg [...] Date 08/23/19 07 - 08/24/19 0659 08/24/19 0700 - 08/25/19 0659 Shift 2509-4221 1887-0123 8902-5602 24 Hour Total 6863-4626 8709-2693 2775-6410 24 Hour Total INTAKE IV 625 625 OR Crystalloid intake (mL) 250 250 Volume (mL) (lactated ringers infusion) 125 125 Volume (mL) (vancomycin iv piggyback 1.25 g in D5W 250 mL (VANCOCIN)) 250 250 Shift Total 625 625 OUTPUT Urine 522 282 6827 Void (ml) 846 183 9371 Blood 50 50 Estimated Blood loss 50 50 Shift Total 150 575 6482 Weight (kg) 85 85 85 85 85 [...] 3 g in NaCl 0.9% 100 mL MB+/ADD-[place] (UNASYN) 3 g INTRAVENOUS q 6 H [...] pharmacy if questions. MARTHA RYAN PHARMACIST Ext: [phone] Edy Paredes MD 08/24/2019 9:20 AM Signed Edy Paredes MD, MS, FACP, FIDSA Division of Infectious Diseses [address] [facility] [address] [place] [address] Office: [phone] INFECTIOUS DISEASE CONSULT PROGRESS NOTE SERVICE DATE: [...] off. SIGNATURE: Edy Paredes MD, MS, FACP, [facility] PATIENT NAME: Elizabeth Modi DATE: August 24, 2019 TIME: 9:16 AM PAGER/CONTACT #: [phone] Sue Bianchi DO 08/24/2019 5:16 PM Signed DEPARTMENT [facility] MEDICINE PROGRESS NOTE SERVICE DATE: 08/24/2019 SERVICE TIME: 12:40 PM Hospital Medicine/Primary Attending: Sue Bianchi DO NIGHT AND WEEKEND COVERAGE: After 7pm, please call cross cover pager #[phone] Subjective INTERVAL HPI: Patient seen and examined. 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 2 to 12 grossly intact, [...] 08/21/191914 vte non-pharmacologic prophylaxis - none indicated (il,va) 08/21/191914 activity - mobilize patient ([place]) VTE Prophylaxis: VTE prophylaxis appropriate Disposition: Home with [facility] Plan of care discussed with: Provider, RN, Patient SIGNATURE: Sue Bianchi DO PATIENT NAME: Elizabeth Modi DATE: August 24, 2019 TIME:12:40 PM PAGER/CONTACT #: etx [phone] NADIR Cox/Serene 08/24/2019 1:07 PM Signed Occupational Therapy Evaluation SERVICE DATE: 08/24/2019 SERVICE TIME: 1133 to 1208 ROOM: [place] [address] Recommended Discharge Disposition: Acute Rehab Justification For [...] (ADL);General symptoms and signs-other Interventions Provided: Evaluation;Self Group Home Management (22024) $ Evaluation-Moderate (93620) Billed Units: 1 unit OT Evaluation Moderate [...] occupational performance: thyroid, HTN, DM, claudication Self Group Home Management (61919) Treatment Minutes: 10 1 unit Skilled Intervention(s): [...] lower extremity. 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 Patient agreeable to (more content not included)... Normal [facility] No Panel Information [facility] Vital Signs Date Time Vital Sign Value Performing Clinician Facility 10-16-2024 07:59-0400 Body height 167.[address] Diana Salmeron MD Work Phone: [facility] 10-16-2024 07:59-0400 Body mass index (BMI) [Ratio] 29 kg/m2 Dr. Diana Salmeron MD Work Phone: [facility] 10-16-2024 07:59-0400 Body weight 81.[address] Diana Salmeron MD Work Phone: [facility] 10-16-2024 07:59-0400 Diastolic blood pressure 74 mm[Hg] Dr. Diana Salmeron MD Work Phone: [facility] 10-16-2024 07:59-0400 Heart rate 64 /min Dr. Diana Salmeron MD Work Phone: [facility] 10-16-2024 07:59-0400 Respiratory rate 18 /min Dr. Diana Salmeron MD Work Phone: [facility] 10-16-2024 07:59-0400 Systolic blood pressure 131 mm[Hg] Dr. Diana Salmeron MD Work Phone: [facility] 10-16-2024 00:07-0400 Body temperature 97.8 [degF] Dr. Diana Salmeron MD Work Phone: [facility] 10-16-2024 00:07-0400 Diastolic blood pressure 76 mm[Hg] Dr. Diana Salmeron MD Work Phone: [facility] 10-16-2024 00:07-0400 Heart rate 68 /min Dr. Diana Salmeron MD Work Phone: [facility] 10-16-2024 00:07-0400 Respiratory rate 16 /min Dr. Diana Salmeron MD Work Phone: [facility] 10-16-2024 00:07-0400 SaO2% (BldA) [Mass fraction] 97 % Dr. Diana Salmeron MD Work Phone: [facility] 10-16-2024 00:07-0400 Systolic blood pressure 148 mm[Hg] Dr. Diana Salmeron MD Work Phone: [facility] 10-15-2024 17:47-0400 Body mass index (BMI) [Ratio] 29.9 kg/m2 Dr. Diana Salmeron MD Work Phone: [facility] 10-15-2024 17:47-0400 Body weight [address] Diana Salmeron MD Work Phone: [facility] 10-15-2024 16:00-0400 Body height 167.[address] Diana Salmeron MD Work Phone: [facility] 10-01-2024 13:22-0400 Body height 167.6 cm Nikolai Connor PA-C Work Phone: [facility] Comment on above: After amputations per patient. 10-01-2024 13:22-0400 Body temperature 97.3 [degF] Nikolai Connor PA-C Work Phone: [facility] 10-01-2024 13:22-0400 Diastolic blood pressure 82 mm[Hg] Nikolai Connor PA-C Work Phone: [facility] Comment on above: Mario notified of blood pressure- pat ient aware to let staff where he resides know of his blood pressure. 10-01-2024 13:22-0400 Heart rate 62 /min Nikolai Connor PA-C Work Phone: [facility] 10-01-2024 13:22-0400 Respiratory rate 14 /min Nikolai Connor PA-C Work Phone: [facility] 10-01-2024 13:22-0400 SaO2% (BldA) [Mass fraction] 97 % Nikolai Connor PA-C Work Phone: [facility] 10-01-2024 13:22-0400 Systolic blood pressure 182 mm[Hg] Nikolai Connor PA-C Work Phone: [facility] Comment on above: Mario notified of blood pressure- pat ient aware to let staff where he resides know of his blood pressure. 01-11-2023 12:58-0400 Body temperature 97.4 [degF] Dr. Dexter Reyes Work Phone: [facility] 01-11-2023 12:58-0400 Diastolic blood pressure 65 mm[Hg] Dr. Dexter Reyes Work Phone: [facility] 01-11-2023 12:58-0400 Heart rate 66 /min Dr. Dexter Reyes Work Phone: [facility] 01-11-2023 12:58-0400 Respiratory rate 17 /min Dr. Dexter Reyes Work Phone: [facility] 01-11-2023 12:58-0400 Systolic blood pressure 113 mm[Hg] Dr. Dexter Reyes Work Phone: [facility] 12-17-2022 12:00-0400 Body temperature 98.8 [degF] Dr. Dexter Reyes Work Phone: [facility] 12-17-2022 12:00-0400 Diastolic blood pressure 68 mm[Hg] Dr. Dexter Reyes Work Phone: 4(517)[phone] [place] [address] 12-17-2022 12:00-0400 Heart rate 60 /min Dr. Dexter Reyes Work Phone: 9(595)[phone] [place] [address] 12-17-2022 12:00-0400 Inhaled oxygen flow rate 2 L/min Dr. Dexter Reyes Work Phone: 9(525)[phone] [place] [address] 12-17-2022 12:00-0400 Respiratory rate 18 /min Dr. Dexter Reyes Work Phone: [facility] 12-17-2022 12:00-0400 SaO2% (BldA) [Mass fraction] 95 % Dr. Dexter Reyes Work Phone: [facility] 12-17-2022 12:00-0400 Systolic blood pressure 147 mm[Hg] Dr. Dexter Reyes Work Phone: [facility] 12-17-2022 06:00-0400 Body mass index (BMI) [Ratio] 32.6 kg/m2 Dr. Dexter Reyes Work Phone: [facility] 12-17-2022 06:00-0400 Body weight 92.[address] Dexter Reyes Work Phone: [facility] 12-15-2022 20:05-0400 Inhaled oxygen concentration 4 % Dr. Dexter Reyes Work Phone: [facility] 12-15-2022 10:54-0400 Body height 167.[address] Dexter Reyes Work Phone: [facility] 09-01-2022 09:59-0400 Body temperature 97.7 [degF] Shana Delgado MD Work Phone: [facility] 09-01-2022 09:59-0400 Diastolic blood pressure 68 mm[Hg] Shana Delgado MD Work Phone: [facility] 09-01-2022 09:59-0400 Heart rate 66 /min Shana Delgado MD Work Phone: [facility] 09-01-2022 09:59-0400 Systolic blood pressure 135 mm[Hg] Shana Delgado MD Work Phone: [facility] 01-13-2022 13:09-0400 Heart rate 79 /min DR KARL BARRERA MD [facility] 01-13-2022 11:36-0400 Body temperature 97.88 [degF] DR KARL BARRERA MD [address] 01-13-2022 11:36-0400 Diastolic Blood Pressure NBP [address] KARL BARRERA MD [address] 01-13-2022 11:36-0400 Heart rate 79 /min DR KARL BARRERA MD [facility] 01-13-2022 11:36-0400 Mean blood pressure 79 mm[Hg] DR KARL BARRERA MD [facility] 01-13-2022 11:36-0400 Reason For Taking VItal Signs DR KARL BARRERA MD [facility] 01-13-2022 11:36-0400 Respiratory rate 18 /min DR KARL BARRERA MD [facility] 01-13-2022 11:36-0400 Systolic Blood Pressure NBP [address] KARL BARRERA MD [facility] 01-13-2022 08:42-0400 Heart rate 81 /min DR KARL BARRERA MD [address] [place] [address] 01-13-2022 08:42-0400 Heart rate 82 /min DR KARL BARRERA MD [address] [place] [address] 01-13-2022 07:06-0400 Body temperature 97.52 [degF] DR KARL BARRERA MD [address] [place] [address] 01-13-2022 07:06-0400 Diastolic Blood Pressure NBP [address] KARL BARRERA MD [address] [place] [address] 01-13-2022 07:06-0400 Mean blood pressure 79 mm[Hg] DR KARL BARRERA MD [address] [place] [address] 01-13-2022 07:06-0400 Reason For Taking VItal Signs DR KARL BARRERA MD [address] [place] [address] 01-13-2022 07:06-0400 Respiratory rate 18 /min DR KARL BARRERA MD [address] [place] [address] 01-13-2022 07:06-0400 Systolic Blood Pressure NBP [address] KARL BARRERA MD [address] [place] [address] 01-13-2022 04:52-0400 Body temperature 97.7 [degF] DR KARL BARRERA MD [address] [place] [address] 01-13-2022 04:52-0400 Diastolic Blood Pressure NBP [address] KARL BARRERA MD [address] [place] [address] 01-13-2022 04:52-0400 Mean blood pressure 83 mm[Hg] DR KARL BARRERA MD [address] [place] [address] 01-13-2022 04:52-0400 Reason For Taking VItal Signs DR KARL BARRERA MD [address] [place] [address] 01-13-2022 04:52-0400 Respiratory rate 18 /min DR KARL BARRERA MD [address] [place] [address] 01-13-2022 04:52-0400 Systolic Blood Pressure NBP [address] KARL BARRERA MD [address] [place] [address] 01-12-2022 16:59-0400 Heart rate 71 /min DR KARL BARRERA MD [address] [place] [address] 01-12-2022 09:02-0400 Heart rate 71 /min DR KARL BARRERA MD [address] [place] [address] 01-11-2022 04:44-0400 Diastolic blood pressure 79 mm[Hg] DR KARL BARRERA MD [address] [place] [address] 01-11-2022 04:44-0400 Mean blood pressure 110 mm[Hg] DR KARL BARRERA MD [address] [place] [address] 01-11-2022 04:44-0400 Systolic blood pressure 171 mm[Hg] DR KARL BARRERA MD [address] [place] [address] 01-11-2022 04:02-0400 Diastolic blood pressure 71 mm[Hg] DR KARL BARRERA MD [address] [place] [address] 01-11-2022 04:02-0400 Mean blood pressure 105 mm[Hg] DR KARL BARRERA MD [address] [place] [address] 01-11-2022 04:02-0400 Systolic blood pressure 173 mm[Hg] DR KARL BARRERA MD [address] [place] [address] 01-10-2022 02:13-0400 Diastolic blood pressure 73 mm[Hg] DR KARL BARRERA MD [address] [place] [address] 01-10-2022 02:13-0400 Systolic blood pressure 179 mm[Hg] DR KARL BARRERA MD [address] [place] [address] 01-10-2022 01:27-0400 Signs/Symptoms Transfusion Reaction DR KARL BARRERA MD [address] [place] [address] 01-10-2022 01:27-0400 Transfusion Documentation Ended/Paper DR KARL BARRERA MD [address] 01-10-2022 00:56-0400 Signs/Symptoms Transfusion Reaction DR KARL BARRERA MD [address] [place] [address] 01-10-2022 00:27-0400 Heart rate 63 /min DR KARL BARRERA MD [address] [place] [address] 01-10-2022 00:11-0400 Signs/Symptoms Transfusion Reaction No DR KARL BARRERA MD [address] [place] [address] 01-10-2022 00:11-0400 Heart rate 64 /min DR KARL BARRERA MD [address] [place] [address] 01-09-2022 22:36-0400 Transfusion Documentation Started/Paper DR KARL BARRERA MD [address] [place] [address] 01-06-2022 09:26-0400 Diastolic blood pressure 45 mm[Hg] DR KARL BARRERA MD [address] [place] [address] 01-06-2022 09:26-0400 Mean blood pressure 64 mm[Hg] DR KARL BARRERA MD [address] [place] [address] 01-06-2022 09:26-0400 Systolic blood pressure 103 mm[Hg] DR KARL BARRERA MD [address] [place] [address] 01-06-2022 08:38-0400 Diastolic blood pressure 50 mm[Hg] DR KARL BARRERA MD [address] [place] [address] 01-06-2022 08:38-0400 Mean blood pressure 69 mm[Hg] DR KARL BARRERA MD [address] [place] [address] 01-06-2022 08:38-0400 Systolic blood pressure 107 mm[Hg] DR KARL BARRERA MD [address] [place] [address] 01-06-2022 07:40-0400 Diastolic blood pressure 45 mm[Hg] DR KARL BARRERA MD [address] [place] [address] 01-06-2022 07:40-0400 Mean blood pressure 66 mm[Hg] DR KARL BARRERA MD [address] [place] [address] 01-06-2022 07:40-0400 Systolic blood pressure 113 mm[Hg] DR KARL BARRERA MD [address] [place] [address] 01-05-2022 20:12-0400 SaO2% (BldA) [Mass fraction] 98.4 % DR KARL BARRERA MD [facility] 01-05-2022 18:47-0400 SaO2% (BldA) [Mass fraction] 97.6 % DR KARL BARRERA MD [facility] 01-05-2022 17:13-0400 SaO2% (BldA) [Mass fraction] 97.7 % DR KARL BARRERA MD [facility] 01-05-2022 12:30-0400 Body temperature 98.98 [degF] DR KARL BARRERA MD [address] [place] [address] 01-05-2022 12:25-0400 Body temperature 99 [degF] DR KARL BARRERA MD [address] [place] [address] 01-05-2022 12:20-0400 Body temperature 99.07 [degF] DR KARL BARRERA MD [address] [place] [address] 01-05-2022 12:20-0400 Body temperature 98.51 [degF] DR KARL BARRERA MD [address] [place] [address] 01-05-2022 12:15-0400 Body temperature 98.6 [degF] DR KARL BARRERA MD [address] [place] [address] 01-05-2022 12:10-0400 Body temperature 98.67 [degF] DR KARL BARRERA MD [address] [place] [address] 01-05-2022 11:54-0400 SaO2% (BldA) [Mass fraction] 98.2 % DR KARL BARRERA MD [facility] 01-05-2022 11:19-0400 SaO2% (BldA) [Mass fraction] 99.4 % DR KARL BARRERA MD [facility] 01-05-2022 10:44-0400 SaO2% (BldA) [Mass fraction] 99.4 % DR KARL BARRERA MD [facility] 01-03-2022 23:07-0400 Mean blood pressure 83 mm[Hg] DR KARL BARRERA MD [address] 01-03-2022 12:05-0400 Body height [address] KARL BARRERA MD [address] [place] [address] 01-03-2022 12:05-0400 Body weight 81.[address] KARL BARRERA MD [address] [place] [address] 01-03-2022 12:05-0400 Body weight 35.28 kg/m2 DR KARL BARRERA MD [address] [place] [address] 01-03-2022 04:54-0400 Body weight 81.[address] KARL BARRERA MD [address] 12-31-2021 03:38-0400 Heart rate 80 /min DR KARL BARRERA MD [address] 12-30-2021 05:08-0400 Body weight 103.[address] KARL BARRERA MD [address] 02-09-2021 12:00-0400 Diastolic blood pressure 53 mm[Hg] Ammy Vicente MD Work Phone: [facility] Work Phone: 02-09-2021 12:00-0400 Heart rate 51 /min Ammy Vicente MD Work Phone: [facility] Work Phone: 02-09-2021 12:00-0400 SaO2% (BldA) [Mass fraction] 91 % Ammy Vicente MD Work Phone: [facility] Work Phone: 02-09-2021 12:00-0400 Systolic blood pressure 110 mm[Hg] Ammy Vicente MD Work Phone: [facility] Work Phone: 02-09-2021 11:45-0400 Respiratory rate 16 /min Ammy Vicente MD Work Phone: [facility] Work Phone: 02-09-2021 10:58-0400 Body temperature 98.1 [degF] Ammy Vicente MD Work Phone: [facility] Work Phone: 02-09-2021 08:21-0400 Body height 142.2 cm Ammy Vicente MD Work Phone: [facility] Work Phone: 02-09-2021 08:21-0400 Body mass index (BMI) [Ratio] 36.77 kg/m2 Ammy Vicente MD Work Phone: [facility] Work Phone: 02-09-2021 08:21-0400 Body weight 74.39 kg Ammy Vicente MD Work Phone: [facility] Work Phone: Encounters Encounter Date Encounter Type Care Provider Facility Start: 01-22-2025 ambulatory Victor M DAVID Facility:[facility] Start: 01-20-2025 ambulatory ERIC MONTGOMERY [facility] Start: 01-14-2025 End: 01-14-2025 ambulatory GAYLA CLINE Facility:[id number] Start: 01-14-2025 End: 01-14-2025 Patient encounter procedure Gayla Cline MD Work Phone: Urology Comment on above: Gross hematuria (Margarita dariel Dx); Left renal mass Start: 12-18-2024 ambulatory Victor M DAVID Facility:[facility] Start: 12-18-2024 Registered Referred Victor M Rojas MD [facility] Start: 12-03-2024 End: 12-03-[address] Diana Salmeron MD Work Phone: [facility] [place] [facility] Start: 12-03-2024 End: 12-03-[address] Victor M Rojas MD -[facility] Work Phone: Start: 11-20-2024 ambulatory Stefanvianeytianna matute OLS Facility:[facility] Start: 11-20-2024 Registered Referred Victor M Rojas MD [facility] Start: 11-07-2024 End: 11-07-[address] Diana Salmeron MD Work Phone: [facility] Start: 11-07-2024 End: 11-07-2024 Departed Referred Christina Whipple COACH-C [facility] Start: 11-07-2024 Registered Referred Christina quiles -C [facility] Start: 11-07-2024 End: 11-07-2024 ambulatory Christina Whipple OLS Facility:[facility] Start: 10-23-2024 End: 10-23-[address] Diana Salmeron MD Work Phone: [facility] Work Phone: Start: 10-23-2024 End: 10-23-2024 Departed Referred Victor M Rojas MD [facility] Start: 10-23-2024 End: 10-23-2024 ambulatory Stefanvianeytianna Rojas OLS Facility:[facility] Start: 10-16-2024 End: 10-16-2024 Patient encounter procedure Lauren GARLAND -[facility] Work Phone: Start: 10-16-2024 End: 10-16-2024 ambulatory Diana Salmeron Facility:[facility] Start: 10-15-2024 End: 10-16-2024 Emergency department patient visit Dr. Diana Salmeron MD Work Phone: -Emergency Department Work Phone: Start: 10-04-2024 End: 12-04-2024 Follow-up encounter Nikolai Connor PA-C Work Phone: Urology Start: 10-01-2024 End: 10-04-2024 Telephone encounter Nikolai Connor PA-C Work Phone: Urology Start: 10-01-2024 End: 10-01-2024 ambulatory NIKOLAI CONNOR Facility:[facility] Start: 10-01-2024 End: 10-01-2024 Patient encounter procedure Nikolai Connor PA-C Work Phone: Urology Comment on above: Gross hematuria (Margarita dariel Dx); Screening for genitourinary condition Start: 09-24-2024 End: 09-24-[address] Diana Salmeron MD Work Phone: [facility] Work Phone: Start: 09-24-2024 End: 09-24-[address] Victor M Rojas MD -[facility] Work Phone: Start: 09-18-2024 End: 09-18-[address] Diana Salmeron MD Work Phone: [facility] Work Phone: Start: 09-18-2024 End: 09-18-2024 Departed Referred Victor M Rojas MD -[facility] Start: 09-18-2024 Registered Referred Victor M Rojas MD -[facility] Start: 09-18-2024 End: 09-18-2024 ambulatory Victor M DAVID Facility:[facility] Start: 09-06-2024 End: 09-06-2024 Patient encounter procedure Kacie GARLAND -[facility] Work Phone: Start: 09-06-2024 End: 09-06-2024 ambulatory Diana Salmeron Facility:[facility] Start: 09-05-2024 End: 09-05-2024 ambulatory Christina Whipple Facility:[facility] Start: 09-05-2024 End: 09-05-2024 [facility] Start: 09-03-2024 End: 09-03-2024 ambulatory Christina Whipple Facility:[facility] Start: 09-03-2024 End: 09-03-2024 Patient encounter procedure Christina Whipple [facility] Work Phone: Start: 08-21-2024 End: 08-21-[address] Diana Salmeron MD Work Phone: [facility] Work Phone: Start: 08-21-2024 End: 08-21-2024 [facility]ed [facility] Start: 08-21-2024 End: 08-21-2024 ambulatory Efewongbe Bob OLS Facility:[facility] Start: 08-01-2024 ambulatory Efewtianna matute OLS Facility:[facility] Start: 08-01-2024 [facility]istered [facility] Start: 07-30-2024 ambulatory Diana Salmeron Facility: [facility] Start: 07-24-2024 ambulatory Efewtianna matute OLS Facility:[facility] Start: 07-24-2024 [facility]istered [facility] Start: 07-23-2024 End: 07-23-2024 ambulatory Efewleonabe Bob Facility:[facility] Start: 07-23-2024 End: 07-23-[address] [facility] Start: 07-05-2024 End: 07-05-2024 ambulatory Christina Whipple Facility:[facility] Start: 07-05-2024 End: 07-05-2024 [facility] encounter [facility] Work [facility]: Start: 07-02-2024 End: 07-02-2024 ambulatory Nikolai Connor TU Work Phone: Urology Comment on above: CT urogram results Start: 07-02-2024 End: 07-02-2024 E-mail encounter from caregiver Nikolai Connor TU Work Phone: Urology Start: 06-28-2024 End: 06-28-2024 ambulatory NIKOLAI CONNOR Facility:[facility] Start: 06-28-2024 End: 06-28-2024 Subsequent hospital visit by physician Clare [facility] ([facility]-Stat) Work Phone: Cat Scan Comment on above: Gross hematuria [R31 .0] Start: 06-27-2024 ambulatory Butros Latf Facility: [facility] Start: 06-27-2024 [facility]istered [facility] Start: 06-21-2024 End: 07-09-2024 Telephone encounter Nikolai Geeta MAE Work Phone: Urology Comment on above: Results Start: 06-20-2024 [facility] Start: 06-20-2024 [facility]istered [facility] Start: 06-18-2024 End: 06-18-2024 ambulatory NIKOLAI CONNOR Facility:[facility] Start: 06-18-2024 End: 06-18-2024 Patient encounter procedure Nikolai Connor PA-C Work Phone: Urology Comment on above: Screening for genito urinary condition (Primary Dx); Gross hematuria; Left renal mass Start: 06-17-2024 End: 06-17-2024 Patient encounter procedure Christina RIVERA -[facility] Work Phone: Start: 06-17-2024 End: 06-17-2024 ambulatory Butros Latouf Facility:[facility] Start: 06-17-2024 [facility]istered [facility] Start: 06-06-2024 End: 06-06-2024 Patient encounter procedure Kaice GARLAND -[facility] Work Phone: Start: 06-06-2024 End: 06-06-2024 ambulatory Butros Latouf Facility:[facility] Start: 05-21-2024 End: 05-22-2024 ambulatory Butros Latouf Facility:[facility] Start: 05-08-2024 End: 05-08-2024 ambulatory Butros Latouf Facility:[facility] Start: 04-24-2024 End: 04-24-2024 ambulatory Butros Latouf Facility:[facility] Start: 04-04-2024 End: 04-04-2024 ambulatory Butros Latouf Facility:[facility] Start: 03-26-2024 End: 03-26-2024 ambulatory Butros Latouf Facility:[facility] Start: 03-25-2024 ambulatory Eric Montgomery Facility: [facility] Start: 03-20-2024 ambulatory Butros Latouf Facility: [facility] Start: 03-04-2024 End: 03-04-2024 ambulatory Sohail Owen Facility:[facility] Start: 02-28-2024 End: 02-28-2024 ambulatory Butros Latouf Facility:[facility] Start: 02-22-2024 End: 02-22-2024 ambulatory Efewongbe Elidiae FRANKIE Facility:[facility] Start: 01-29-2024 End: 01-29-2024 ambulatory Efewongbe Oleghe OLS Facility:[facility] Start: 01-08-2024 End: 01-08-[address] KENNY CHUA MD Facility:[facility] Start: 04-13-2023 Emergency department patient visit VALENTIN PHAN [facility] Start: 03-27-2023 Telephone encounter Urology (History ) Urology Start: 02-08-2023 End: 02-08-[address] Dexter Reyes Work Phone: [facility] Work Phone: Start: 02-08-2023 End: 02-08-[address] Dexter Reyes Work Phone: [facility] Work Phone: Start: 01-30-2023 End: 01-30-[address] Dexter Reyes Work Phone: [facility] Work Phone: Start: 01-30-2023 End: 01-30-[address] Dexter Reyes Work Phone: [facility], [facility] Work Phone: Start: 01-11-2023 End: 01-11-[address] Dexter Reyes Work Phone: [facility] Work Phone: Start: 12-17-2022 Non-patient / Non-visit Dr. Robel Reyes Work Phone: [facility] Work Phone: Start: 12-16-2022 Non-patient / Non-visit Dr. Robel Reyes Work Phone: [facility] Start: 12-16-2022 Non-patient / Non-visit Dr. Robel Reyes Work Phone: [facility] Work Phone: Start: 12-15-2022 Non-patient / Non-visit Dr. Robel Reyes Work Phone: [facility] Start: 12-15-2022 Non-patient / Non-visit Dr. Robel Reyes Work Phone: [facility] Start: 12-15-2022 Non-patient / Non-visit Dr. Robel Reyes Work Phone: [facility] Work Phone: Start: 12-14-2022 End: 12-17-2022 Evaluation and management of inpatient Dr[facility] Work Phone: Start: 12-14-2022 End: 01-08-2024 Pre-admission assessment DR KENNY CHUA MD [facility] Start: 12-14-2022 Non-patient / Non-visit Dr. Robel Reyes Work Phone: [facility] Work Phone: Start: 09-06-2022 Telephone encounter Quanjay Amosmatt sumariano PHAN Work Phone: Rheumatology Comment on above: Patient Update Start: 09-01-2022 End: 09-01-2022 Patient encounter procedure Terence Phelps MD Work Phone: Ophthalmology Comment on above: Optic nerve edema (P rimary Dx) Vision changes (Prim anish Dx); Photosensitivity; PVD (peripheral vascular disease) ([facility]); Type 2 diabetes mellitus with other specified complication, without long-term current use of insulin ([facility]); 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; Vitamin D deficiency Start: 01-17-2022 End: 01-17-2022 Patient encounter procedure [facility] Start: 12-30-2021 End: 01-13-2022 Evaluation and management of inpatient DR KARL BARRERA MD [facility] Start: 11-23-2021 End: 11-23-2021 Subsequent hospital visit by physician Michoacano Weinstein MD Work Phone: [facility] Comment on above: CHRONIC HEADACHES Start: 02-09-2021 End: 02-09-2021 Subsequent hospital visit by physician Ammy Vicente MD Work Phone: [facility] General Surgery Comment on above: Arrived Start: 11-13-2020 ambulatory [facility] Facility:[facility] Start: 09-09-2020 ambulatory [facility] Facility:[facility] Procedures Date Procedure Procedure Detail Performing Clinician [...] GFR Calc Start: 06-17-[address] Dinaa Salmeron MD Work Phone: Start: 01-30-2023 Cholangiogram [...] on above: Performed By: #### MAG #### [place] [id number] Start: 06-19-[address] KARL BARRERA MD [...] DTaP,Tdap,Td Vaccine (2 - Td or Tdap) [facility] Start: 02-17-2025 Influenza vaccination [facility] Start: 01-14-2025 End: 01-14-2025 Patient encounter procedure 01/14/2025 9:15 AM EDT Office Visit Urology [address] [place] [id number] Gayla Cline MD [address] [place], [place] [id number] WILL BE ON Dr.Mooney LUCINA referral for cysto Urology Comment on above: WILL BE ON Dr.Mooney LUCINA referral for c ysto Start: 11-08-2024 End: 11-08-2024 Patient encounter procedure 11/08/2024 8:15 AM EDT Office Visit Urology [address] [place], [place] [id number] Gayla Cline MD [address] [place], [place] [id number] referral for cysto Urology Comment on above: referral for cysto Start: 10-15-2024 End: 10-15-2024 [facility] Start: 07-02-2024 Cystourethroscopy CYSTO.PANENDO Procedures Routine Gross hematuria Expected: 07/02/2024 (Approximate) [facility] Comment on above: Expected: 07/02/2024 (Approximate) Start: 06-28-2024 End: 06-28-2024 Patient encounter procedure 06/28/2024 1:20 PM EST Appointment Cat Scan [address] [place], [place] [id number] Gross hematuria [R31.0] Cat Scan Comment on above: Gross hematuria [R31.0] Start: 06-25-2024 End: 09-24-2024 CREATININE BLD CREATININE BLD Lab Routine Screening for genitourinary condition Gross hematuria Expected: 06/25/2024 (Approximate), Expires: 09/24/2024 [facility] Comment on above: Expected: 06/25/2024 (Approximate), Expi res: 09/24/2024 Start: 06-25-2024 End: 07-19-2025 CT Kidney WO and W contrast IV CT UROGRAM WO/W IVCON Radiology Routine Gross hematuria Expected: 06/25/2024, Expires: 07/19/2025 [facility] Comment on above: Expected: 06/25/2024, Expires: Start: 06-19-2024 Advance Directive Discussion Advance Directive Discussion [facility] Start: 06-19-2024 Medicare Advantage Annual Wellness Visit Medicare Advantage Annual Wellness Visit [facility] Start: 02-18-2024 Covid-19 Vaccine () Covid-19 Vaccine () [facility] Start: 02-18-2024 Influenza vaccination Influenza Vaccine (#1) [facility] Start: 09-02-2023 Glaucoma screening Dilated Retinal Exam [facility] Start: 09-02-2023 Hepatitis C antibody, confirmatory test DILATED RETINAL EXAM [facility] Start: 08-13-2023 Hemoglobin A1c measurement HbA1C [facility] Start: 08-13-2023 Hemoglobin A1c/Hemoglobin.total in Blood HbA1C [facility] Start: 06-19-2023 Advance Directive Discussion Advance Directive Discussion [facility] Start: 02-17-2023 Influenza vaccination Influenza Vaccine (#1) [facility] Start: 02-15-2023 Hepatitis B screening URINE ALBUMIN:CREATININE RATIO [facility] Start: 12-17-2022 Patient discharge [facility] Start: 12-16-2022 Dietary regime [facility] Start: 12-16-2022 Catheterization of vein [facility] Start: 12-16-2022 Vital signs measurements [facility] Start: 12-15-2022 [facility] Start: 12-15-2022 Consultation [facility] Start: 12-14-2022 Admission procedure [facility] Start: 12-14-2022 Wound care [facility] Start: 12-14-2022 Consultation for treatment [facility] Start: 12-14-2022 Catheterization of vein [facility] Start: 12-14-2022 Following clinical pathway protocol [facility] Start: 12-14-2022 Admission procedure [facility] Start: 12-14-2022 Assessment of risk of venous thromboembolism [facility] Start: 12-14-2022 Care regimes management [facility] Start: 12-14-2022 Insertion of catheter into peripheral vein [facility] Start: 12-14-2022 Providing care according to standard [facility] Start: 12-14-2022 Provision of activity privileges [facility] Start: 12-14-2022 Fall prevention [facility] Start: 12-14-2022 Introduction of urinary catheter [facility] Start: 12-14-2022 Oxygen therapy [facility] Start: 12-14-2022 Referral to occupational therapist [facility] Start: 12-14-2022 Referral to service [facility] Start: 12-14-2022 Measuring intake and output [facility] Start: 12-14-2022 Referral to gastroenterology service [facility] Start: 12-14-2022 Referral to general surgeon [facility] Start: 12-14-2022 Inhalation therapy procedure [facility] Start: 12-14-2022 Patient referral to dietitian [facility] Start: 12-14-2022 End: 12-14-2022 [facility] Start: 10-11-2022 Hemoglobin A1c/Hemoglobin.total in Blood HBA1C [facility] Start: 08-07-2022 Covid-19 Vaccine (6 - Moderna series) Covid-19 Vaccine (6 - Moderna series) [facility] Start: 06-19-2022 ADVANCE DIRECTIVE DISCUSSION ADVANCE DIRECTIVE DISCUSSION [facility] Start: 06-19-2022 DEPRESSION ASSESSMENT DEPRESSION ASSESSMENT [facility] Start: 02-17-2022 Influenza vaccination INFLUENZA (Season Ended) [facility] Start: 06-19-2021 ADVANCE DIRECTIVE DISCUSSION ADVANCE DIRECTIVE DISCUSSION [facility] Start: 03-17-2021 End: 03-17-2021 Patient encounter procedure 03/17/2021 Office Visit Ophthalmology Ammy Vicente MD [address] [place] [address] [phone] [employer] [place] [facility] Start: 02-17-2021 Influenza vaccination Flu vaccine (#1) [facility] Work Phone: Start: 02-17-2021 End: 02-17-2021 Patient encounter procedure 02/17/2021 Office Visit Ophthalmology Ammy Vicente MD [address] [place] [address] [phone] [facility] Op[facility] Start: 02-10-2021 End: 02-10-2021 Patient encounter procedure 02/10/2021 Office Visit Ophthalmology Ammy Vicente MD [address] [place] [address] [phone] [facility] Start: 08-15-2020 Hemoglobin A1c/Hemoglobin.total in Blood HBA1C [facility] Start: 2016 RSV Vaccine (1 - 1-dose 75+ series) RSV Vaccine (1 - 1-dose 75+ series) [facility] Start: 2006 Pneumococcal 65+ years Vaccine (1 of 1 - PPSV23) Pneumococcal 65+ years Vaccine (1 of 1 - PPSV23) [facility] Work Phone: Start: 2001 Hepatitis B Vaccine (1 of 3 - Risk 3-dose series) Hepatitis B Vaccine (1 of 3 - Risk 3-dose series) [facility] Start: 1991 Shingles Vaccine (1 of 2) Shingles Vaccine (1 of 2) [facility] Work Phone: Start: 1991 SHINGRIX VACCINE (1 of 2) SHINGRIX VACCINE (1 of 2) [facility] Start: 1960 DTaP/Tdap/Td vaccine (1 - Tdap) DTaP/Tdap/Td vaccine (1 - Tdap) [facility] Work Phone: Start: 1960 Pneumococcal Vaccine: 50+ (1 of 2 - PCV) Pneumococcal Vaccine: 50+ (1 of 2 - PCV) [facility] Start: 1960 Urine microalbumin profile [facility] Start: 1959 ANNUAL PCP TEAM CHRONIC DISEASE VISIT ANNUAL PCP TEAM CHRONIC DISEASE VISIT [facility] Start: 1959 Anxiety Screening Anxiety Screening [facility] Start: 1959 BP CONTROLLED (<130/80) BP CONTROLLED (<130/80) [facility] Start: 1959 Depression Screening Depression Screening [facility] Start: 1959 Hepatitis B surface antibody level LDL CHOLESTEROL [facility] Start: 1953 Adult depression screening assessment DEPRESSION SCREENING [facility] Start: 1953 COVID-19 Vaccine (1) COVID-19 Vaccine (1) [facility] Work Phone: Start: 1951 3 comp foot exam completed DIABETIC FOOT EXAM [facility] Start: 1951 Diabetic foot examination Diabetic Foot Exam [facility] Start: 1951 Hepatitis B screening URINE ALBUMIN:CREATININE RATIO [facility] Start: 1951 Hepatitis C antibody, confirmatory test DILATED RETINAL EXAM [facility] Start: 1951 Lipid panel Lipid screen [facility] Work Phone: Start: 1947 Pneumococcal Vaccine: 65+ (1 - PCV) Pneumococcal Vaccine: 65+ (1 - PCV) [facility] Start: 1947 PNEUMOCOCCAL: 65+ (1 - PCV) PNEUMOCOCCAL: 65+ (1 - PCV) [facility] Start: 1946 COVID-19 VACCINE (#1) COVID-19 VACCINE (#1) [facility] Start: 1941 Creatinine measurement Creatinine monitoring [facility] Work Phone: Start: 1941 Hepatitis C screening Hepatitis C screen [facility] Work Phone: Start: 1941 Potassium monitoring Potassium monitoring [facility] Work Phone: Start: 1941 Thyroid stimulating hormone measurement TSH testing [facility] Work Phone: Bacteria identified in Urine by Culture [facility] Comment on above: Ordered: 06/18/2024 Bacteria identified in Urine by Culture BACTERIAL CULTURE, URINE Microbiology Routine Gross hematuria 10/01/2024 3:36 PM EDT [facility] Blood glucose - POCT [facility] Work Phone: Comment on above: As Needed until discontinued starting End: 02-09-2021 Creatinine [Mass/volume] in Serum or Plasma Creatinine, serum Lab STAT One Time for 1 Occurrences starting 02/09/2021 until 02/09/2021 [facility] Work Phone: Comment on above: One Time for 1 Occurrences starting 01/18 until 02/09/2021 CT Kidney WO and W contrast IV CT UROGRAM WO/W IVCON Radiology Routine Gross hematuria 06/28/2024 2:26 PM EST [facility] Work Phone: End: 11-03-2025 CT Kidney WO and W contrast IV CT UROGRAM WO/W IVCON Radiology Routine Gross hematuria 1 Occurrences starting 10/04/2024 until 11/03/2025 [facility] Work Phone: Comment on above: 1 Occurrences starting 10/04/2024 until 11/03/2025 Cystourethroscopy CYSTO.PANENDO Procedures Routine Gross hematuria Ordered: 10/01/2024 [facility] Comment on above: Ordered: 10/01/2024 CYTOLOGY NON-WAREHOUSE CHECKER [facility] Comment on above: Ordered: 06/18/2024 End: 02-09-2021 Intermittent pulse oximetry Pulse Oximetry Spot Check Respiratory Care Routine One Time for 1 Occurrences starting 02/09/2021 until 02/09/2021 [facility] Work Phone: Comment on above: One Time for 1 Occurrences starting 01/18 until 02/09/2021 Nasal Cannula Oxygen Nasal Cannu la Oxygen Respiratory Care Routine As Needed until discontinued starting 02/09/2021 [facility] Work Phone: Comment on above: As Needed until discontinued starting Nonrebreather mask oxygen Nonreb reather mask oxygen Respiratory Care Routine As Needed until discontinued starting 02/09/2021 [facility] Work Phone: Comment on above: As Needed until discontinued starting Oxygen therapy [[facility] Data Set] [facility] Work Phone: Comment on above: Daily until discontinued starting 2020 As Needed until disc ontinued starting 02/09/2021 Patient Education ED Eye Contusi on ED Head Injury (Adult) ED Skin Tear (Skin Avulsion) [facility] Work Phone: Patient referral [facility] Work Phone: POST VOID RESIDUAL POST VOID RES IDUAL Procedures Routine Gross hematuria Screening for genitourinary condition Ordered: 10/01/2024 [facility] Work Phone: Comment on above: Ordered: 10/01/2024 End: 02-09-2021 Potassium w/ Reflex to Magnesium Potassium w/ Reflex to Magnesium Lab Routine One Time for 1 Occurrences starting 02/09/2021 until 02/09/2021 [facility] Work Phone: Comment on above: One Time for 1 Occurrences starting 01/18 until 02/09/2021 End: 02-09-2021 , urine POCT , urine POCT Point of Care Testing Routine One Time for 1 Occurrences starting 02/09/2021 until 02/09/2021 [facility] Work Phone: Comment on above: One Time for 1 Occurrences starting 01/18 until 02/09/2021 End: 02-09-2021 Protime-INR Protime-INR Lab STAT One Time for 1 Occurrences starting 02/09/2021 until 02/09/2021 [facility] Work Phone: Comment on above: One Time for 1 Occurrences starting 01/18 until 02/09/2021 Spirometry panel Incentive arthur metry Respiratory Care Routine Q1H PRN until discontinued starting 02/09/2021 [facility] Work Phone: Comment on above: Q1H PRN until discontinued starting 01/18 UA DIP, URINE (POC) UA DIP, URIN E (POC) Lab Routine Screening for genitourinary condition Ordered: 06/18/2024 [facility] Work Phone: Comment on above: Ordered: 06/18/2024 Immunizations Immunization Date Immunization Notes Care Provider [facility] 10-15-2024 tetanus toxoid, reduced diphtheria toxoid, and acellular pertussis vaccine, adsorbed Dr. Diana Salmeron MD Work Phone: [facility] 03-19-2022 influenza virus vaccine, unspecified formulation Urology (History) [facility] 10-25-2021 Covid (Pfizer) Dr. Dexter Reyes Work Phone: [facility] 05-21-2021 influenza virus vaccine, unspecified formulation DR KARL ABRRERA MD [facility] 05-21-2021 SARS-CoV-2 (COVID-19 ) mRNA-[address] KARL BARRERA MD [facility] 03-10-2021 influenza virus vaccine, unspecified formulation DR KARL BARRERA MD [facility] 10-13-2020 SARS-CoV-2 (COVID-19 ) mRNA-[address] KARL BARRERA MD [facility] Comment on above: Result Comment: 2021: TPV3 09-15-2020 SARS-CoV-2 (COVID-19 ) mRNA-[address] KARL BARRERA MD [facility] Comment on above: Result Comment: 2021: TPV3 03-22-2020 influenza virus vaccine, unspecified formulation DR KARL BARRERA MD [facility] 02-18-2020 influenza virus vaccine, unspecified formulation DR KARL BARRERA MD [facility] 03-18-2019 influenza, injectabl e, quadrivalent, preservative free Dr. Diana Salmeron MD Work Phone: [facility] 03-18-2019 influenza, seasonal, injectable Dr. Dexter Reyes Work Phone: [facility] 03-04-2019 influenza virus vaccine, unspecified formulation DR KARL BARRERA MD [facility] 02-22-2017 influenza virus vaccine, unspecified formulation DR KARL BARRERA MD [facility] Payers Date Payer Category Payer Medicare (Managed Care) [facility] MEDICARE [id number] 2024 Self-pay [id number] 2020 Medicare [id number]. [id number] 2019 Private Health Insurance [id number]. 7.3.836427.315 2019 Medicaid [id number]. 1.13.159.2. [id number] 2019 Medicaid [id number] 2015 Medicare [facility] [place] MEDICARE [id number] 2006 Medicare [id number]. 1.13.159.2. [id number] 2006 Medicare [id number] 1940 Unknown [id number] 2.16.840.1.720823.3.579.2. 594 1941 Unknown [id number] 2.16.840.1.581079.3.579.2. 594 1941 Unknown [id number] 2.16.840.1.488511.3.579.2. 594 1941 Unknown [id number] 2.16.840.1.842539.3.579.2. 627 1941 Unknown [id number] 2.16.840.1.405026.3.579.2. 651 Medicare [id number] Unknown [id number] 2.16.840.1.165381.3.579.2. 462 Unknown [id number] 2.16.840.1.406346.3.579.2. 462 Unknown [id number] 2.16.840.1.992129.3.579.2. 462 Unknown [id number] 2.16.840.1.405450.3.579.2. 462 Unknown [id number] 2..840.1.009895.3.579.2. 462 Unknown [id number] 2.16.840.1.083022.3.579.2. 462 Unknown [id number] 2.16.840.1.198612.3.579.2. 462 Unknown [id number] 2.16.840.1.565468.3.579.2. 462 Unknown [id number] 2.16.840.1.363918.3.579.2. 462 Unknown [id number] 2.16.840.1.673038.3.579.2. 462 Unknown [id number] 2.16.840.1.739005.3.579.2. 462 Unknown [id number] 2.16.840.1.646299.3.579.2. 462 Unknown [id number] 2.16.840.1.883735.3.579.2. 462 Unknown [id number] 2.16.840.1.239089.3.579.2. 462 Unknown [id number] 2.16.840.1.457070.3.579.2. 462 Unknown [id number] 2.16.840.1.890325.3.579.2. 462 Unknown [id number] 2.16.840.1.799990.3.579.2. 462 Unknown [id number] 2.16.840.1.520574.3.579.2. 462 Unknown [id number] 2.16.840.1.010232.3.579.2. 462 Unknown [id number] 2.16.840.1.160536.3.579.2. 462 Unknown [id number] 2.16.840.1.773632.3.579.2. 462 Unknown [id number] 2.16.840.1.209720.3.579.2. 462 Unknown [id number] 2.16.840.1.421632.3.579.2. 462 Unknown [id number] 2.16.840.1.672286.3.579.2. 462 Unknown [id number] 2.16.840.1.652717.3.579.2. 462 Unknown [id number] 2.16.840.1.808601.3.579.2. 462 Unknown [id number] 2.16.840.1.456242.3.579.2. 462 Unknown [id number] 2.16.840.1.242575.3.579.2. 462 Unknown [id number] 2.16.840.1.262936.3.579.2. 462 Unknown [id number] 2.16.840.1.182228.3.579.2. 462 Unknown [id number] 2.16.840.1.271761.3.579.2. 462 Unknown [id number] 2.16.840.1.042670.3.579.2. 462 Unknown [id number] 2.16.840.1.308156.3.579.2. 462 Unknown [id number] 2.16.840.1.184293.3.579.2. 462 Unknown [id number] 2.16.840.1.613945.3.579.2. 462 Unknown [id number] 2.16.840.1.734053.3.579.2. 462 Unknown [id number] 2.16.840.1.600593.3.579.2. 462 Unknown [id number] 2.16.840.1.124917.3.579.2. 462 Social History Date Type Detail Facility Start: 02-09-2021 End: 06-18-2024 Tobacco smoking status NJIS Former smoker [facility] Start: 02-09-2021 End: 01-14-2025 Alcohol intake Current drinker of alcohol (finding) [facility] Work Phone: Start: 02-02-2021 Alcohol Comment occassional ETOH use, not on a daily basis [facility] Work Phone: Start: 1940 Sex Assigned At Not on file [facility] Work Phone: Exposure to SARS-CoV -2 (event) Not sure [facility] Start: 12-14-2022 Tobacco smoking status [facility] Tobacco smoking consumption unknown [facility] Start: 05-15-2020 History SDOH Alcohol Frequency 2 [facility] Start: 05-15-2020 History SDOH Alcohol Std Drinks 1 [facility] Start: 12-10-2019 History SDOH Financial 4 [facility] Start: 1940 Sex Assigned At Male [facility] Start: 01-08-1960 End: 01-07-1990 History of tobacco use Current smoker [facility] Work Phone: Start: 01-08-1960 End: 01-07-1990 History of tobacco use Cigarette Smoker [facility] Work Phone: Start: 05-15-2020 End: 05-05-2023 Cigarettes smoked current (pack per day) - Reported 1 [facility] Work Phone: Start: 05-15-2020 End: 06-18-2024 Tobacco use and exposure Smokeless tobacco non-user [facility] Work Phone: Start: 09-05-2019 End: 05-05-2023 Tobacco Comment STOPPED 28 YEARS AGO [facility] Start: 09-05-2019 Alcohol Comment OCCASIONAL [facility] Start: 09-12-2019 Heavy [facility] Start: 09-12-2019 None [facility] Start: 11-23-2019 - [facility] Start: 12-18-2019 Non-smoker [facility] Start: 05-15-2020 End: 05-05-2023 Alcohol Use Disorder Identification Test - Consumption [AUDIT-C] [facility] Work Phone: How often to you hav e a drink containing alcohol? Monthly or less [facility] Work Phone: How many standard dr inks containing alcohol do you have on a typical day? 1 or 2 [facility] Work Phone: Frequency of Binge Drinking Not on file [facility] How hard is it for y ou to pay for the very basics like food, housing, medical care, and heating Not very hard [facility] (I/We) worried monae er (my/our) food would run out before (I/we) got money to buy more. DK or Refused [facility] Start: 09-20-2024 End: 10-16-2024 Sex Male (finding) [facility] Medical Equipment Procedure Code Equipment Code Equipment Origin al Text Equipment Identifier Dates ERCP (endoscopic retrograde cholangiopancreatog lalit) ([id number]) Polymeric biliary stent, non-bioabsorbable [id number] FDA Start: 12-15-2022 Patch Xenosure Bovine Pericardial Tissue 8x.8cm Vascular Sterile - [id number] Start: 09-02-2019 Goals Date Patient Goal Desired Activity /State Functional Status Date Assessment Result Facility 12-17-2022 Functional status Bedrest [facility] Work Phone: 12-16-2022 Functional status Tolerates Activity Fair [facility] Work Phone: 01-13-2022 Functional Status Room check performed [facility] 01-13-2022 Functional Status [facility] 01-13-2022 Functional Status [facility] 01-13-2022 Functional [facility] 01-13-2022 Functional Status [facility] 01-12-2022 [facility] Functional Status [facility] 01-12-2022 Functional Status 50 [facility] 01-12-2022 Functional Status [facility] 01-12-2022 Functional Status Bed Bath Refused [facility] 01-12-2022 Functional Status bilateral knee high [facility] 01-12-2022 Functional Status padded oxygen tubing [facility] 01-11-2022 Functional Status Linen Change Done [facility] 01-11-2022 Functional Status [facility] 01-11-2022 Functional Status [facility] 01-10-2022 Functional Status [facility] 01-10-2022 Functional Status [facility] 01-10-2022 Functional Status Shampoo/Body w abdirashid (no rinse), CHG bath [facility] 01-10-2022 Functional Status [facility] 01-09-2022 Functional Status [facility] 01-09-2022 Functional Status [facility] 01-08-2022 Functional Status [facility] 01-07-2022 Functional Status Transfer Bed t o/from Chair Total 2 [facility] 01-07-2022 Functional Status Supervised 3 [facility] 01-07-2022 Functional Status Hair Care Maximum paola tance [facility] 01-07-2022 Functional Status Fluid Restriction Maint ained [facility] 01-06-2022 Functional Status [facility] 01-05-2022 Functional Status Special Call D evice Unable to use call device [facility] 01-05-2022 Functional Status [facility] 01-05-2022 Functional Status [facility] 01-05-2022 Functional Status Patient Identi fied Identification band, Verbal [facility] 01-04-2022 Functional Status Skin Care Done [facility] 01-03-2022 Functional Status [facility] 01-01-2022 Functional Status [facility] 12-30-2021 Functional Status Living Situati on Mcfp Unit [facility] 12-30-2021 Functional Status Sensory Defici ts Blind, left eye, Blind, right eye [facility] 12-11-2019 Are you deaf, or do you have serious difficulty hearing No 12/11/2019 4:18 PM Josefa Graves, KAVIN No [facility] 12-11-2019 Are you blind, or do you have serious difficulty seeing, even when wearing glasses No 12/11/2019 4:18 PM Josefa Graves, KAVIN No [facility] 12-11-2019 Do you have serious difficulty walking or climbing stairs Yes 12/11/2019 4:18 PM Josefa Graves, KAVIN Yes [facility] 12-11-2019 Do you have difficul ty dressing or bathing No 12/11/2019 4:18 PM Josefa Graves, KAVIN No [facility] 12-11-2019 Because of a physica l, mental, or emotional condition, do you have difficulty doing errands alone such as visiting a physician's office or shopping Yes 12/11/2019 4:18 PM Josefa Graves RN Yes [facility] Mental Status Date Assessment Result Facility 12-17-2022 Cognitive function Voice/Name [facility] Work Phone: 01-13-2022 Mental Status Orientation Oriented x 4 [facility] 01-13-2022 Mental Status [facility] 01-12-2022 Mental Status [facility] 01-12-2022 Mental Status [facility] 01-11-2022 Mental Status [facility] 12-11-2019 Because of a physica l, mental, or emotional condition, do you have serious difficulty concentrating, remembering, or making decisions No 12/11/2019 4:18 PM Josefa Graves RN No [facility] Clinical Notes 02-09-2021 to 01-14-2025 Gayla Cline MD - 01/14/2025 10:45 AM Gayla Banuelos MD - 01/14/2025 10:44 AM Gayla Banuelos MD - 01/14/2025 10:44 AM EDT Note Date & Type Note Facility 01-14-2025 Note HNO ID: [id number] Author: GAYLA CLINE MD Service: ? Author [...] (Patient not taking: Reported on 01/14/2025) vit C,S-Zn-jhghv-lutein-zeaxan (PRESERVISION AREDS-2) 250-90-40-1 mg Take 1 Each [...] daily. (Patient n (more content not included)... [facility] 01-14-2025 History of Presen t illness Narrative [...] (Patient not taking: Reported on 01/14/2025) vit C,U-An-kummk-lutein-zeaxan (PRESERVISION AREDS-2) 250-90-40-1 mg Take 1 Each [...] kidney disease no dialysis. Dr. Montgomery in [place] Congestive heart failure (HCC) Diabetes mellitus (HCC) [...] Gayla Cline MD documented in this encounter [facility] 01-14-2025 Note HNO ID: [id number] Author: GAYLA CLINE MD Service: ? Author Type: Physician Type: Procedures Filed: 01/14/2025 10:48 Note Text: CYSTOSCOPY PROCEDURE NOTE : Elizabeth Modi is a 84 year old male who is here for cystoscopy PRE-OP/PRE-PROCEDURE DIAGNOSIS: h/o gross henaturia POST-OP/POST-PROCEDURE DIAGNOSIS: same SURGERY/PROCEDURE(S): Cystoscopy Pt ID verified with patient: Yes Procedure verified with patient: Yes Procedure confirmed with physician and production support consultant: Yes UNIVERSAL PROTOCOL / SAFETY CHECKLIST Procedure [...] meaning may be extrapolated by contextual derivation. [facility] 01-14-2025 Procedure note CYSTOSCOPY PROCEDURE NOTE : Elizabeth Modi is a 84 year old male who is here for cystoscopy PRE-OP/PRE-PROCEDURE DIAGNOSIS: h/o gross henaturia POST-OP/POST-PROCEDURE DIAGNOSIS: same SURGERY/PROCEDURE(S): Cystoscopy Pt ID verified with patient: Yes Procedure verified with patient: Yes Procedure confirmed with physician and production support consultant: Yes UNIVERSAL PROTOCOL / SAFETY CHECKLIST Procedure [...] meaning may be extrapolated by contextual derivation. [facility] 01-14-2025 Procedure note CYSTOSCOPY PROCEDURE NOTE : Elizabeth Modi is a 84 year old male who is here for cystoscopy PRE-OP/PRE-PROCEDURE DIAGNOSIS: h/o gross henaturia POST-OP/POST-PROCEDURE DIAGNOSIS: same SURGERY/PROCEDURE(S): Cystoscopy Pt ID verified with patient: Yes Procedure verified with patient: Yes Procedure confirmed with physician and production support consultant: Yes UNIVERSAL PROTOCOL / SAFETY CHECKLIST Procedure [...] by contextual derivation. documented in this encounter [facility] 10-16-2024 Evaluation note Diagnosis Onset Date Resolution Atherosclerotic heart disease of [place] coronary artery without angina pectoris chronic October 16, 2024 7:59am Essential hypertension chronic Ap 2024 7:59am Hyperlipidemia chronic September 7:59am Paroxysmal atrial fibrillation chronic October 16, 2024 7:59am [facility] Work Phone: 1(429) 849-622904-29-2025 Discharge summary [facility] Medical Records Department [address] [place] [address] Emergency Department Summary 10/15/24 MR#: [id number] Acct: [id number] Name: ELIZABETH MODI Rep #:[id number] : 1940 84 From: Jesse Griffith PCP: [...] of his last tetanus. Tetanus Immunization: Unknown [facility] Medical History History of echocardiogram History [...] pulmonary disease) Obesity Atherosclerotic heart disease of [place] coronary artery without angina pectoris Paroxysmal atrial [...] below knee amputation (05/2021) Social History housing: halfway Smoking Status: Former smoker how long ago [...] motor deficits and no sensory deficits noted [place] Coma Scale: document GCS findings Spontaneous Obeys [...] Care Provider] - 5-7 Days Print Language: Mosotho Disposition Disposition: Home, Self Care What to do if you have Problems For any increased pain, shortness of breath, bleeding, nausea or vomiting, chestpain, or any unexpected problems, contact your Primary Care Provider. Call [facility] ([phone]) or report tothe closest Emergency Room. Call 911 if necessary. 10/15/24 1504 Cosigner Signature (if applicable): CC: Dr. Diana Salmeron MD ~ Signed [facility]04-29-2025 Radiology Diagnostic study note [facility] Imaging Services [address] [place] [address] Elbow min 3 Views MR#: [id number] Acct: [id number] Name: ELIZABETH MODI Rep #: [id number] : 1940 M 84 From: Franko Kapadia MD PCP: Dr. Diana Salmeron MD Status: REG ER Study:Elbow min 3 Views Date of Exam: Exam# [id number] Ordering Dr: Jesse Angel DO EXAM: Left elbow CLINICAL HISTORY: Injury, pain COMPARISON: None TECHNIQUE: Three views FINDINGS: No acute fracture or dislocation. Moderate joint space narrowing and osteophyte formation consistent with moderatearthrosis. Normal soft tissues. RAD/Elbow min 3 Views IMPRESSION: No acute fracture or dislocation. Moderate arthrosis. Reading Location: [facility] CC: Dr. Diana Salmeron MD; Dr. Jesse Angel DO ~ Maintainer Central Office: Signed [facility]04-29-2025 Radiology Diagnostic study note [facility] Imaging Services [address] [place], [place] [address] Orb Sella Post Fossa Ear w/o MR#: [id number] Acct: [id number] Name: ELIZABETH MODI Rep #: [id number] : 1940 M 84 From: Franko Kapadia MD PCP: Dr. Diana Salmeron MD Status: REG ER Study:Orb Sella Post Fossa Ear w/o Date of Ex am: 10/15/24 Exam# [id number] Ordering Dr: Jesse Angel DO PROCEDURE: ORB [...] ORBITAL FRACTURE OR RETROBULBAR HEMATOMA. Reading Location: [facility] CC: Dr. Diana Salmeron MD; Dr. Jesse Angel DO ~ Maintainer Central Office: Signed [facility]04-29-2025 Discharge summary Author Jesse Angel [facility] Note Date/Time October 15, 2024 11: 45pm [facility] Medical Records Department [address] [place] [address] Emergency Department Summary 10/15/24 MR#: [id number] Acct: [id number] Name: ELIZABETH MODI Rep #:[id number] : 1940 84 From: Jesse Griffith PCP: [...] of his last tetanus. Tetanus Immunization: Unknown [facility] Medical History History of echocardiogram History [...] pulmonary disease) Obesity Atherosclerotic heart disease of [place] coronary artery without angina pectoris Paroxysmal atrial [...] below knee amputation (05/2021) Social History housing: halfway Smoking Status: Former smoker how long ago [...] motor deficits and no sensory deficits noted [place] Coma Scale: document GCS findings Spontaneous Obeys [...] Care Provider] - 5-7 Days Print Language: [place] Disposition Disposition: Home, Self Care What to do if you have Problems For any increased pain, shortness of breath, bleeding, nausea or vomiting, chestpain, or any unexpected problems, contact your Primary Care Provider. Call [facility] ([phone]) or report to the closest Emergency Room. Call 911 if necessary. 10/15/24 4124 <Electronically signed by Jesse Angel DO> Cosigner Signature (if applicable): CC: Dr. Diana Salmeron MD ~ Signed [facility] Work Phone: 1(484) 820-333604-15-2025 Telephone encounter Note* Telephone Encounter - Yue Huffman - 10/01/2024 2:11 PM EDT May you please submit another order for for Urogram CT. When last appt was canceled the order was not removed from the appt. Sorry for the inconvenience. Marivel PSS [facility]04-15-2025 Miscellaneous Notes* Telephone Encounter - Yue Su - 10/01/2024 2:11 PM EDT May you please submit another order for for Urogram CT. When last appt was canceled the order was not removed from the appt. Sorry for the inconvenience. Marivel PSS documented in [facility] Instructions* Patient Instructions* Nikolai Connor PA-C - 10/01/2024 1:46 PM EDT documented in this encounterProm[facility]-2025 NoteHNO ID: [id number] Author: NIKOLAI CONNOR PA-C Service: ? Author Type: Physician [employer] Associate Professor Type: Progress Notes Filed: 10/01/2024 14:58 Note Text: [facility] PATIENT CLINIC NOTE (M) Some elements [...] (ADULTS MULTIVITAMIN ORAL) Take by mouth. vit C,A-Mh-uunlc-lutein-zeaxan (PRESERVISION AREDS-2) 250-90-40-1 mg Take 1 Each [...] [place] in [place] Congestive (more content not included)...[facility]04-15-2025 History of Present illness Narrative* Nikolai Connor PA-C - 10/01/2024 1:42 PM EDT Images from the original note were not included. [facility] PATIENT CLINIC NOTE (M) Some elements [...] (ADULTS MULTIVITAMIN ORAL) Take by mouth. vit C,D-Cn-julnb-lutein-zeaxan (PRESERVISION AREDS-2) 250-90-40-1 mg Take 1 Each [...] kidney disease no dialysis. Dr. Montgomery in [place] Congestive heart failure (HCC) DM (diabetes mellitus) [...] cyanosis, or edema The patient or authorized enrollment eligibility representative has verbally agreed to proceed with the [...] cystoscopy (bladder scope) with Dr. Hawk at [facility] has been placed; please turn in the printed order with the halfway so they can schedule your procedure. A [...] Plan: Appointment with Nikolai. documented in this encounterProm[facility]-2025 NoteHNO ID: [id number] Author: LUKE TAYLOR LPN Service: ? Author Type: LICENSED NURSE Type: Progress Notes Filed: 10/01/2024 14:58 Note Text: Verified name and date of . CC Post Void Residual HPI: Elizabeth Modi is a 84 year old male. The patient is here now for an appointment with Nikolai Connor, [employer], [place], PA-COV. Procedure: Explained procedure to patient and verbalizes understanding. Performed a PVR. Patient urinated and instructed to empty bladder as much as possible just prior to having PVR done using bladder ultrasound scanner. Results of scan: 163 mL The patient tolerated the procedure well. Plan: Appointment with Nikolai.[facility]03-21-2025 Evaluation note* Diagnosis Onset Date Resolution Status Admit Date Fecal incontinence acute September 06, 2024 1:38pm S/P ERCP chronic September 06 1:38pm [facility] Work Phone: 1(573) 889-366403-21-2025 Evaluation note* Diagnosis Onset Date Resolution Status Admit Date Fecal incontinence acute September 06, 2024 1:38pm S/P ERCP chronic September 06 1:38pm 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 chronic October 16, 2024 7:59am Essential hypertension chronic Ap 2024 7:59am Hyperlipidemia chronic September 7:59am Paroxysmal atrial fibrillation chron ic October 16, 2024 7:59am [facility] Work Phone: 1(349) 331-952901-21-2025 Telephone encounter Note* Telephone Encounter - Luke Taylor LPN - 07/09/2024 3:50 PM EST Letter sent to patient that we have not been able to contact Desiree. Luke Taylor LPN [facility]01-21-2025 Miscellaneous Notes* Telephone Encounter - Luke Taylor [...] JAJA Stewart, TU DIAZ documented in this encounterPromedica [facility]01-21-2025 Telephone encounter Note * Telephone Encounter - Luke Taylor LPN - 07/09/2024 3:47 PM EST Called [facility]. No answer- left message to call clinic. Luke Taylor LPN [facility]01-17-2025 Telephone encounter Note* Telephone Encounter - Luke Taylor LPN - 07/05/2024 4:27 PM EST Called [facility]. No answer- left message to call clinic. Luke Taylor LPN [facility]01-14-2025 Telephone encounter Note* Telephone Encounter - Nayeli Dominguez - 07/02/2024 2:24 PM EST Left pt's daughter message to call & schedule cysto with Dr. Prakash Connor. Delmi [facility]01-14-2025 Miscellaneous Notes* Telephone Encounter - Nayeli Dominguez - 07/02/2024 2:24 PM EST Left pt's daughter message to call & schedule cysto with Dr. Prakash Connor. Delmi documented in this encounterProm[facility]ica [facility]01-10-[facility]25 History of Present illness Narrative* Luke Whitmore, [...] PATIENT PRESENTS WITH AN IMPLANTABLE OR ATTACHED RN DIGESTIVE: No ALLERGIES: Reviewed and unchanged CONTRAST ALLERGY: [...] 2024 TIME: 1:57 PM documented in this encounterPromedica Defiance [facility]01-10-2025 NoteHNO ID: [id number] Author: LUKE WHITMORE RT(R) Service: ? Author Type: Senior Biostatistician Type: Progress Notes Filed: 06/28/2024 13:57 Note [...] PATIENT PRESENTS WITH AN IMPLANTABLE OR ATTACHED RN DIGESTIVE: No ALLERGIES: Reviewed and unchanged CONTRAST ALLERGY: [...] Modi DATE: June 28, 2024 TIME: 1:57 [facility]01-07-2025 Telephone encounter Note* Telephone Encounter - Susan Joy MA - 06/25/2024 8:46 AM EST LM for [facility] to contact office to inform. Susan Joy MA [facility]01-03-2025 Telephone encounter Note* Telephone Encounter - Anaid Payne MA - 06/21/2024 4:28 PM EST ----- Message from Nikolai Connor PA-C sent at 06/21/2024 3:54 PM EST ----- No infection in the urine No cancer cells in urine, please continue the rest of the testing JAJA Stewart MT, PA-C [facility]12-31-2024 NoteHNO ID: [id number] Author: NIKOLAI CONNOR PA-C Service: ? Author Type: Physician Forest Pathology Associate Professor Type: Progress Notes Filed: 06/18/2024 16:05 Note Text: [facility] NEW PATIENT CLINIC NOTE SERVICE DATE: June 18, 2024 NAME: Elizabeth Modi CHIEF COMPLAINT: Hematuria HISTORY OF PRESENT ILLNESS: Elizabeth Modi is a 83 year old male an new patient here for The patient reports Hematuria with a few episodes of hematuria Will get Urine sample today for culture and cytology Schedule Cystoscopy at [place] And CT Urogram at [place] We discussed the need for full hematuria [...] (ADULTS MULTIVITAMIN ORAL) Take by mouth. vit C,S-Ie-bzzzg-lutein-zeaxan (PRESERVISION AREDS-2) 250-90-40-1 mg Take 1 Each [...] disease) (HCC) Renal mass (more content not included)...[facility]12-31-2024 History of Present illness Narrative* Nikolai Connor PA-C - 06/18/2024 1:26 PM EST Images from the original note were not included. [facility] NEW PATIENT CLINIC NOTE SERVICE DATE: June 18, 2024 NAME: Elizabeth Modi CHIEF COMPLAINT: Hematuria HISTORY OF PRESENT ILLNESS: Elizabeth Modi is a 83 year old male an new patient here for The patient reports Hematuria with a few episodes of hematuria Will get Urine sample today for culture and cytology Schedule Cystoscopy at [place] And CT Urogram at [place] We discussed the need for full hematuria [...] (ADULTS MULTIVITAMIN ORAL) Take by mouth. vit C,E-Ym-cahmu-lutein-zeaxan (PRESERVISION AREDS-2) 250-90-40-1 mg Take 1 Each [...] kidney disease no dialysis. Dr. Montgomery in [place] Congestive heart failure (HCC) DM (diabetes mellitus) ([facility]) PCP follows Dyslipidemia Heart attack (HCC) HTN (hypertension) Hypercholesterolemia Hypothyroidism PVD (peripheral vascular disease) ([facility]) Renal mass PAST SURGICAL HISTORY: PAST SURGICAL [...] follow > 3 mo Follow-up with JAJA Couch MT, PA-C after testing JAJA Stewart MT, PA-C documented in this encounterPromedica Defiance [facility]12-19-[facility]24 Evaluation note* Diagnosis Onset Date Resolution Status Admit Date Fecal incontinence acute Decemb er 2023 3:30pm S/P ERCP chronic June 06, 2024 3:30pm Fecal incontinence acute September 06, 2024 1:38pm S/P ERCP chronic September 06 1:38pm [facility] Work Phone: [phone]) 179-642302-18-2024 Note. MICRO - Microbiology PROCEDURE: Blood Culture [...] Locations *1: This test was performed at: [address], [facility]- , [facility] ([place])08-04-2023 Note. MICRO - Microbiology PROCEDURE: Blood Culture [...] Locations *1: This test was performed at: [address], [address]- , [facility] ([place])04-16-2023 Note. MICRO - Microbiology PROCEDURE: Culture Wound [...] Locations *1: This test was performed at: [facility], [address] [place] [address], [address]- , [facility] ([place])03-27-2023 Miscellaneous Notes* Telephone Encounter - Ammy Bradshaw - 03/27/2023 1:44 PM EDT Referral received [facility] for [place] to call and schedule appt. Ammy Bradshaw documented in this encounterPromedica Defiance [facility] Hospital03-21-2023 Miscellaneous Notes* Telephone Encounter - Quan Iraheta DO - 09/06/2022 5:03 PM EDT Spoke with patient's nurse at [facility]. Counseled to taper prednisone by 2.5mg [...] agreement with the plan. documented in this encounterPromedica Defiance [facility] Hospital03-21-2023 Miscellaneous Notes* Telephone Encounter - Quan Iraheta DO - 09/06/2022 12:47 PM EDT Attempted to speak with a provider for Mr. Modi at [facility] to college admissions counselor prednisone taper of 2.5mg q week based upon rheumatology and ophthalmology evaluation not c/w GCA. Phone rang without answer x 2. Will attempt to call again this afternoon. documented in this encounterPromedica Defiance Regional Hospital03-16-2023 History of Present illness Narrative* Terence Phelps MD - 09/01/2022 2:08 PM EDT COACH - Referred by Dr. 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 Eating Habits- No raw meat, not vegan [...] - Being assessed for cataract surgery at [facility] Age related macular degeneration - Smoking history: [...] 01, 2022 3:05 PM documented in this encounterPromedica Defiance Regional Hospital03-16-2023 Instructions* Patient Instructions* Shana Delgado MD - 09/01/2022 10:54 AM EDT Labs on the first floor today Eye exam today in [facility] Continue prednisone dose as is pending labs and eye evaluation documented in this encounterPromedica Defiance [facility] Hospital03-16-2023 History of Present illness Narrative* Shana Delgado [...] vascular disease s/p bilateral BKA, CKD, and SC s/p CABG who presents for evaluation of [...] muscle aches or pains Vascular surgery at [facility]: Left temporal artery biopsy 12/24/2021 A. [...] many vessels Eye doctor Dr. Lucas at [facility] sent him to [facility] for GCA evaluation [phone], Currently on prednisone 10mg daily since 02/28/2022 [...] (initially didn't like the food at the halfway) HEAD: negative for, scalp tenderness, jaw claudication, [...] kidney disease no dialysis. Dr. Montgomery in [place] Congestive heart failure (HCC) DM (diabetes mellitus) ([facility]) PCP follows Dyslipidemia Heart attack (HCC) HTN [...] (L56.8) Photosensitivity (I73.9) PVD (peripheral vascular disease) ([facility]) (E11.69) Type 2 diabetes mellitus with other specified complication, without long-term current use of (Z79.52) detention current use of systemic steroids (E55.9) Vitamin D deficiency Elizabeth Modi is a very pleasant 82 yo male with a past medical history notable for bilateral cataracts, long-standing type 2 diabetes, tobacco use disorder (quit ), peripheral vascular disease s/p bilateral BKA, CKD, hearing loss, and SC s/p CABG who presents for evaluation of GCA in the setting of bilateral decreased vision associated with photosensitivity. This is a very pleasant 82 yo male with numerous cardiovascular risk factors presenting in the context of decreased vision with photosensitivity. Based upon the history that was obtained from the patient and halfway caregiver today, he has not endorsed GCA [...] Zack Iraheta DO PGY5 Rheumatology Fellow Pager [phone] The above patient was seen and examined [...] arteritis Shana Burton MD documented in this encounterPromedica Defiance Regional Hospital08-01-2022 Note ORIGINAL EXAMINATION: TWO XRAY VIEWS OF [...] Date: 01/17/2022 11:59:11 PM Ordering Provider: HUNTER Panda [id number] Note ORIGINAL EXAMINATION: TWO XRAY VIEWS OF [...] Sign Date: 01/17/2022 11:59:11 PM Ordering Provider: [facility]07-28-2022 Note Discharge Instructions Thank you for [...] Op 01/17/2022 01:00 PM EDT HUNTER FALCON SENIOR CONSUMER INSIGHTS CONSULTANT-TECHNICAL ENGINEER [facility] Cardiothoracic Surgery [facility] Follow Up 02/15/2022 10:00 AM EDT [facility] Heart & Vascular [facility] Follow Up Appointments Follow Up with KARL HIDALGO MD When 02/15/2022 10:00 AM EDT Where: [address] [facility] [place] [place] [address]- Follow Up with HUNTER FALCON When 01/17/2022 01:30 PM EDT Why: please obtain a CXR 1 hour prior to your appt. Where: [address] [facility] [place] [address]- Follow Up with Discharge to [facility] LOC [phone] When Within 1-2 days Follow Up with Cardiac Rehab- [facility] When Why: The Cardiac Rehab department will call you to schedule you for phase 2. We left you a brochurewith information about cardiac rehab. If you have any questions please call [phone]. Where: [facility] [address] [place] [address]- The Following Activity and Diet Have Been Ordered for You Transfer of Care Activity - Ordered -- Lifting Restricted less than 10 pounds Driving Restricted May Shower, 01/13/22 10:45:00 EDT Transfer of Care [...] surgeon and have chest x-ray done at [place] [facility]., 01/13/22 10:45:00 EDT Other Therapies [...] - Ordered -- Rehab potential fair-Has Bilat. BKA, 01/13/22 10:45:15 EDT Someone Will Contact You [...] it can visit one of [facility] vaccine clinics. There are many vaccine clinic locations within the [facility]. For locations and available times, please visit [email or web address] It is important to note that some COVID mobile vaccine clinics are held outdoors and may be canceled in rainy or stormy conditions. To learn more about pediatric vaccinations (ages 5-11), we invite you to visit the [facility] webpage. [email or web address] learn more about the COVID-19 vaccine, we invite you to visit the [employer] website for a list of frequently asked questions. [email or web address].pdf [employer] [facility] Patient Portal Access Instructions: Stay connected with your healthcare team and access your personal medical information anytime with the [employer] Patient Portal.If you would like a full copy of your medical records, please contact the [facility] Medical Records Department, Monday through Monday between 8a.m. and 4:30p.m. Please follow the directions below to access the portal: 1.Access the email account you provided upon registration to the hospital.2.Look for an invitation email from [facility].3.Open the email and access the invitation link: Accept Invitation to [facility]4.Fill in the required rios to create your account. Sign into www.[employer] with your username and password that you [...] you will allow to register on the [employer] Patient Portal for access to your information. You can also access the [employer] Patient Portal on the [employer]. Simply click on "Health Records" under "HealthData" and then click on the [employer] logo. HOW TO SAFELY DISPOSE OF PRESCRIPTION [...] Call your local pharmacy or go to [email or web address] to find one close to you.3.Make use of household items: Use cat litter or old coffee grounds to dispose medications if other options arenot available. Mix your drugs with these household products, seal them in an airtight container andthrow it into the garbage. Call [facility]: [phone] to be sure your drugs can be [...] that I should contact my do ctor. 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 Signature: Date/Time: Relationship to Patient: Witness Name/Signature: Date/Time: [facility] [id number] Note ORIGINAL EXAMINATION: ONE XRAY VIEW OF [...] 01/13/2022 6:27:59 AM Ordering Provider: YIMI NEWELL [facility] [id number] Note ORIGINAL EXAMINATION: ONE XRAY VIEW OF [...] Sign Date: 01/13/2022 6:27:59 AM Ordering Provider: [facility]07-27-2022 Note ORIGINAL EXAMINATION: ONE XRAY VIEW [...] Sign Date: 01/12/2022 7:32:39 PM Ordering Provider: [facility]07-27-2022 Note ORIGINAL EXAMINATION: ONE XRAY VIEW OF [...] Date: 01/12/2022 7:32:39 PM Ordering Provider: [facility]I [facility] [id number] Note Date of Service 01/12/2022 Temporary A and V pacer wires discontinued. Patient tolerated well. Patient instructed to remain bedrest for 1 hour. Digitally Signed by YIMI NEWELL on 01/12/2022 05:06 PM [facility] [id number] Note Date of Service 01/12/2022 Chief Complaint [...] cell arteritis on prednisone. He resides at [facility]. He presented on 12/30/2021 with sudden onset of altered mental status and shortness of breath. Troponin 3577. Creatinine elevated 2.3. He was transferred to [facility] for fur ther evaluation. Echocardiogram completed showing [...] rhythm in the 60s. Transfer to stepdown. [place] [facility] following for blood sugar management. [...] Central venous access: Left subclavian triple-lumen Disposition: [place] Weight Current Weight Dosing Weight: 81.5 [...] 7. Diabetes Hgb A1c 8.4% Followed by [place] [facility]. Glucoses ranging 69-1 33. On [...] by YIMI NEWELL on 01/12/2022 04:58 PM [facility] [id number] Note Date of Service 07/14/2021 postop day [...] cell arteritis on prednisone. He resides at [facility]. He presented on 12/30/2021 with sudden onset of altered mental status and shortness of breath. Troponin 3577. Creatinine elevated 2.3. He was transferred to [facility] for fur ther evaluation. Echocardiogram completed showing [...] sinus rhythm in the 60s. Transfer to [facility] endocrinology following for blood sugar management. POD [...] Intake 390.00 Total Output 2480.00 Fluid Balance -2090.00 Physical Exam Lungs: Bilateral, clear, diminished throughout [...] 01/10/2022 09:04 EDT Digitally Signed by PALAK NORMAN on 01/11/2022 11:18 AM [facility] [id number] Endocrinology Progress note Date of Service 01/11/22 [...] Weinstein on 12/24/2021-on prednisone. He resides at [facility] past 3 months. He presented to [facility] on December 30, 2021 due to a sudden onset of alteredmental status and shortness of breath. At [facility], he was noted to have acute kidney injury with creatinine 2.3 and elevated troponin at 3577. EKG revealed normal sinus rhythm without evidenceof ST elevation or depression. Negative for COVID-19 at [facility]. He was transferred to [facility] for further evaluation. Echocardiogram on December 30, 2021 revealed an EF of 45 to 50% and mild MR. 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 Cardiothoracic surgery was consulted for possible surgical myocardial vascularization. 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 Endocrine consult placed by [facility] for diabetic management. Longstanding type II diabetic with A1c of 8.4%. Currently residing at [facility] with orders in place for Humalog 32 [...] 10 units qhs, metformin 500 twice daily, Zccnnujup98zz qd and a 0-10 sliding scale with [...] by CASPER MURRY on 01/11/2022 11:35 AM [facility] [id number] Note ORIGINAL EXAMINATION: CT OF THE CHEST [...] follow-up imaging is recommended. Reference: J Am Juvenico Radiol. 2015 Jul;12(2): 143-50 Interpreted by: Sj Rosales MD Preliminary Report By: Cayetano Larson Electronically signed By Sj Rosales MD Dictated Date: 01/10/2022 4:15:35 PM Prelim Date: 01/10/2022 4:26:07 PM Sign Date: 01/10/2022 4:43:27 PM Ordering Provider: YIMI [facility]07-25-2022 Endocrinology Progress note Date of Service 01/10/22 [...] Weinstein on 12/24/2021-on prednisone. [facility]. He presented to [facility] on December 30, 2021 due to a sudden onset of alteredmental status and shortness of breath. At [facility], he was noted to have acute kidney injury with creatinine 2.3 and elevated troponin at 3577. EKG revealed normal sinus rhythm without evidenceof ST elevation or depression. Negative for COVID-19 at [facility]. He was transferred to [facility] for further evaluation. Echocardiogram on December 30, 2021 revealed an EF of 45 to 50% and mild MR. 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 Cardiothoracic surgery was consulted for possible surgical myocardial vascularization. 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 Endocrine consult placed by [facility] for diabetic management. Longstanding type II diabetic with A1c of 8.4%. Currently residing at [facility] with orders in place for Humalog 32 [...] by CASPER MURRY on 01/10/2022 04:44 PM [facility] [id number] Note ORIGINAL EXAMINATION: CT OF THE CHEST [...] Sign Date: 01/10/2022 4:43:27 PM Ordering Provider: [facility]07-25-2022 Note Date of Service 01/10/2022 Chief [...] cell arteritis on prednisone. He resides at [facility]. He presented on 12/30/2021 with sudden onset of altered mental status and shortness of breath. Troponin 3577. Creatinine elevated 2.3. He was transferred to [facility] for further evaluation. Echocardiogram completed showing [...] systolic BP 159/65-179/73. Will initiate low-dose Lopressor at6.25 mg, lisinopril increased to 40 mg daily, CT of the chest without contrast. Will resume Eliquisat a later date. Amlodipine if BP is not improved with increase Lopressor. Keep AV temporary pacingwires today. Subjective Feels tired. No complaints otherwise. [...] by NICHOLE RODRIGUEZ on 01/10/2022 08:37 AM [facility] [id number] Note Date of Service 01/09/2022 Repeat INR 6.3. Aquamephyton 10 mg SQ x1. Repeat INR in 4 hours. Digitally Signed by KASSIDY SHANKAR on 01/09/2022 02:03 PM [facility] [id number] Endocrinology Progress note Date of Service 01/09/22 Chief Complaint Diabetes Subjective The patient is feeling tired. There were no acute medical issues overnight. There were no new complaints. I reviewed the chart, vitals and medications. Objective Vitals and Measurements T: 36.6 C (Oral) TMIN: 36.5 C (Oral) TMAX: 36.8 C (Oral) HR: 62(Monitored) RR: 18 BP: 164/70 SpO2:93% WT: 103.3 kg Intake and Output 7AM [...] Glucose, Capillary 01/09/2022 10:55:00 EDT 120 mg/dL HI 82-115 Glucose Testing Blood Glucose, [...] Weinstein on 12/24/2021-on prednisone. [facility] He presented to [facility] on December 30, 2021 due to a sudden onset of alteredmental status and shortness of breath. At [facility], he was noted to have acute kidney injury with creatinine 2.3 and elevated troponin at 3577. EKG revealed normal sinus rhythm without evidenceof ST elevation or depression. Negative for COVID-19 at [facility]. He was transferred to [facility] for further evaluation. Echocardiogram on December 30, 2021 revealed an EF of 45 to 50% and mild MR. 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 Cardiothoracic surgery was consulted for possible surgical myocardial vascularization. 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 Endocrine consult placed by [facility] for diabetic management. Longstanding type II diabetic with A1c of 8.4%. 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 He resides at [facility]. He presented on 12/30/2021 with sudden onset ofaltered mental status and shortness of breath. Troponin 3577. Creatinine elevated 2.3. He was transferred to [facility] for further evaluation. Echocardiogram completed showing [...] Continue Central Line: For IV access Disposition: [place] Weight Current Weight Dosing Weight: 81.5 [...] baseline, plan follow-up with Dr. Montgomery from [place] at discharge currently NSR rate 60, Coumadin on hold secondary to elevated INR 4.8. 5. CKD (chronic kidney disease), stage III 6. AF (paroxysmal atrial fibrillation) Currently NSR rate 60, Coumadin on hold secondary to elevated INR 4.8.Repeat INR at noon. On amiodarone. Home amiodarone and Eliquis were both discontinued in August 2021 7. Diabetes Hgb A1c 8.4% Glucose 68-177, [facility] following 8. HTN (hypertension) Blood [...] by KASSIDY SHANKAR on 01/09/2022 11:51 AM [facility] [id number] Note ORIGINAL EXAMINATION: TWO XRAY VIEWS OF [...] Sign Date: 01/09/2022 7:51:53 AM Ordering Provider: [facility]07-24-2022 Note ORIGINAL EXAMINATION: TWO XRAY VIEWS OF [...] Sign Date: 01/09/2022 7:51:53 AM Ordering Provider: [facility]07-23-2022 Endocrinology Progress note Date of Service 01/08/22 [...] Glucose, Capillary 01/08/2022 16:28:00 EDT 132 mg/dL [place] 82-115 Glucose Testing Blood Glucose, Capillary 01/08/2022 11:29:00 EDT 177 mg/dL [place] 82-115 Y Glucose Testing Blood Glucose, Capillary 01/08/2022 07:10:00 EDT 141 mg/dL W[place] 82-115 Glucose Testing Glucose Level 01/08/2022 04:20:00 EDT 145 mg/dL W[place] 82-115 Assessment/Plan 1. CAD (coronary artery disease) [...] Weinstein on 12/24/2021-on prednisone. [facility] He presented to [facility] on December 30, 2021 due to a sudden onset of alteredmental status and shortness of breath. At [facility], he was noted to have acute kidney injury with creatinine 2.3 and elevated troponin at 3577. EKG revealed normal sinus rhythm without evidenceof ST elevation or depression. Negative for COVID-19 at [facility]. He was transferred to [facility] for further evaluation. Echocardiogram on December 30, 2021 revealed an EF of 45 to 50% and mild MR. 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 Cardiothoracic surgery was consulted for possible surgical myocardial vascularization. 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 Endocrine consult placed by [facility] for diabetic management. Longstanding type II diabetic with A1c of 8.4%. 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 He resides at [facility]. He presented on 12/30/2021 with sudden onset ofaltered mental status and shortness of breath. Troponin 3577. Creatinine elevated 2.3. He was transferred to [facility] for further evaluation. Echocardiogram completed showing EF of 45 to 50% with mild MR. Heart catheterization completed showing multivessel disease. On 01/05/2022 he underwenta coronary bypass graft x1 with MOLINA to the LAD per Dr. Hernnadez. He tolerated the procedure welland was transferred [...] episodes of bradycardia. Plans to return to [place] at discharge Subjective No complaints Objective Vitals and Measurements [...] baseline, plan follow-up with Dr. Montgomery from [facility] at discharge, Urineoutput 1100 cc last 24 hours 5. CKD (chronic kidney disease), stage III 6. AF (paroxysmal atrial fibrillation) Currently atrial fibrillation rate 90, Coumadin, amiodarone, patient had previously been on amiodarone and Eliquis but these were discontinued in August 2021 7. Diabetes Hgb A1c 8.4% Glucose 141-249, [place] following 8. HTN (hypertension) Blood [...] by KASSIDY SHANKAR on 01/08/2022 11:02 AM [facility] [id number] Note ORIGINAL EXAMINATION: ONE XRAY VIEW OF [...] 01/08/2022 7:49:49 AM Ordering Provider: YIMI NEWELL [facility] [id number] Note ORIGINAL EXAMINATION: ONE XRAY VIEW OF [...] Sign Date: 01/08/2022 7:49:49 AM Ordering Provider: [facility]07-22-2022 Nephrology Progress note Date of Service 01/07/2022 [...] renal standpoint. Patient will follow with his rn ambulatory Dr. Montgomery in [place] on discharge. Discussed with patient. Digitally Signed by TAMIKA RODAS MD on 01/07/2022 12:42 PM [facility] [id number] Note ORIGINAL EXAMINATION: TWO XRAY VIEWS OF [...] Date: 01/07/2022 12:23:59 PM Ordering Provider: BARRERA DOUGALSDCJudson [facility] [id number] Endocrinology Progress note Date of Service 01/07/22 [...] Weinstein on 12/24/2021-on prednisone. He resides at [facility] past 3 months. He presented to [facility] on December 30, 2021 due to a sudden onset of alteredmental status and shortness of breath. At [facility], he was noted to have acute kidney injury with creatinine 2.3 and elevated troponin at 3577. EKG revealed normal sinus rhythm without evidenceof ST elevation or depression. Negative for COVID-19 at [facility]. He was transferred to [facility] for further evaluation. Echocardiogram on December 30, 2021 revealed an EF of 45 to 50% and mild MR. 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 Cardiothoracic surgery was consulted for possible surgical myocardial vascularization. 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 Endocrine consult placed by [facility] for diabetic management. Longstanding type II diabetic with A1c of 8.4%. Currently residing at [facility] with orders in place for Humalog 32 [...] by CASPER MURRY on 01/07/2022 04:39 PM [facility] [id number] Note Date of Service 01/07/2022 Chief Complaint [...] and shortness of breath. He resides at [facility]. He denied having any chest pain or syncope. He was found to have an acute kidney injury at that time with creati nine of 2.3 and a troponin of 3577 at [facility]. He was transferred to [place] for further evaluation where an echocardiogram revealed [...] Central venous access: Left subclavian triple-lumen Disposition: [facility] Weight Current Weight Dosing Weight: 81.5 kg [...] 7. Diabetes Hgb A1c 8.4% Followed by [place] inpatient endocrinology. Glucoses ranging 96-1 55. On [...] by YIMI NEWELL on 01/07/2022 10:01 AM [facility] [id number] Anesthesiology Consult note Patient: ELIZABETH MODI Age: [...] LINN RICHARD DO on 01/07/2022 08:18 AM [facility] [id number] Note ORIGINAL EXAMINATION: TWO XRAY VIEWS OF [...] Sign Date: 01/07/2022 12:23:59 PM Ordering Provider: [facility]07-21-2022 Nephrology Progress note Date of Service 01/06/2022 [...] TAMIKA RODAS MD on 01/06/2022 10:19 AM [facility] [id number] Endocrinology Progress note Date of Service 01/06/22 [...] Weinstein on 12/24/2021-on prednisone. [facility]. He presented to [facility] on December 30, 2021 due to a sudden onset of alteredmental status and shortness of breath. At [facility], he was noted to have acute kidney injury with creatinine 2.3 and elevated troponin at 3577. EKG revealed normal sinus rhythm without evidenceof ST elevation or depression. Negative for COVID-19 at [facility]. He was transferred to [facility] for further evaluation. Echocardiogram on December 30, 2021 revealed an EF of 45 to 50% and mild MR. Cardiac catheterization completed showing multivessel disease.Cardiothoracic surgery has been consulted for possible surgical myocardial vascularization. Endocrine consult placed by [facility] for diabetic management. Longstanding type II diabetic with A1c of 8.4%. Currently residing at [facility] with orders in place for Humalog 32 [...] by CASPER MURRY on 01/06/2022 04:03 PM [facility] [id number] Note Date of Service 01/06/2022 Chief Complaint [...] and shortness of breath. He resides at [facility]. He denied having any chest pain or syncope. He was found to have an acute kidney injury at that time with creati nine of 2.3 and a troponin of 3577 at [facility]. He was transferred to [place] for further evaluation where an echocardiogram revealed [...] 1 45, on insulin drip per the [facility] ICU glycemic protocol at 8 units/h, endocrinology [...] by BARRERA SALES on 01/06/2022 07:42 AM [facility] [id number] Note ORIGINAL EXAMINATION: ONE XRAY VIEW OF [...] Sign Date: 01/06/2022 6:18:00 AM Ordering Provider: [facility]07-21-2022 Note ORIGINAL EXAMINATION: ONE XRAY VIEW OF [...] Sign Date: 01/06/2022 6:18:00 AM Ordering Provider: [facility]07-20-2022 Cardiology Progress note Date of Service 01/05/22 [...] 2. NSTEMI (non-ST elevated myocardial infarction) 3. QUNI (acute kidney injury) 4. CKD (chronic kidney [...] CELIO CLAROS MD on 01/05/2022 02:25 PM [facility] [id number] Nephrology Progress note Date of Service 01/05/2022 [...] TAMIKA RODAS MD on 01/05/2022 02:15 PM [facility] [id number] Note ORIGINAL HISTORY: Line placement COMPARISON: 5 [...] Sign Date: 01/05/2022 1:24:35 PM Ordering Provider: [facility]07-20-2022 Note ORIGINAL HISTORY: Nasogastric tube placement COMPARISON: No FINDINGS: There is a nasogastric tube with tip in the stomach and side hole at the gastroesophageal junction. Interpreted by: Zack Bucio MD Preliminary Report By: Zack Bucio MD Electronically signed By Zack Bucio MD Dictated Date: 01/05/2022 1:22:43 PM Prelim Date: 01/05/2022 1:23:19 PM Sign Date: 01/05/2022 1:23:19 PM Ordering Provider: [facility]07-20-2022 Note ORIGINAL HISTORY: Line placement COMPARISON: 5 [...] Sign Date: 01/05/2022 1:24:35 PM Ordering Provider: [facility]07-20-2022 Note ORIGINAL HISTORY: Nasogastric tube placement COMPARISON: No FINDINGS: There is a nasogastric tube with tip in the stomach and side hole at the gastroesophageal junction. Interpreted by: Zack Bucio MD Preliminary Report By: Zack Bucio MD Electronically signed By Zack Bucio MD Dictated Date: 01/05/2022 1:22:43 PM Prelim Date: 01/05/2022 1:23:19 PM Sign Date: 01/05/2022 1:23:19 PM Ordering Provider: [facility]07-20-2022 Cardiology Progress note Date of Service 01/05/22 [...] CELIO CLAROS MD on 01/05/2022 02:25 PM [facility] HospitalUzjqanrb78-78-1111 Anesthesiology Consult note Patient: ELIZABETH MODI Age: 81 years Sex: Male : 1940 Associated Diagnoses: None Author: LNIN RICHARD DO Preoperative Information Greater than 6 [...] kidney disease), stage III / SNOMED CT 2292103395 / Confirmed CAD (coronary artery disease) / SNOMED CT 10024215 / Confirmed Diabetes / SNOMED CT 221690511 / Confirmed History of Singh's palsy / SNOMED CT 496089975 / Confirmed HLD (hyperlipidemia) / SNOMED CT 33869153 / Confirmed HTN (hypertension) / SNOMED CT 4709573308 / Confirmed Hypothyroid / SNOMED CT 82446203 / Confirmed QUIN (acute kidney injury) / SNOMED CT 21886895 / Confirmed Mood disorder / SNOMED CT 93779011 / Confirmed NSTEMI (non-ST elevated myocardial infarction) / SNOMED CT 94654892 / Confirmed AF (paroxysmal atrial fibrillation) / SNOMED CT 734739882 / Confirmed PVD (peripheral vascular disease) / SNOMED CT 1078692379 / Confirmed Giant cell arteritis / SNOMED CT 0179557873 / Confirmed, Active Problems (24) AF (paroxysmal atrial fibrillation) QUIN (acute kidney injury) CAD (coronary artery disease) Cataract CKD (chronic kidney disease), stage III COPD (chronic obstructive pulmonary disease) Depression Diabetes DM (diabetes mellitus) Giant cell arteritis Giant cell arteritis syndrome Glasses Heart disease High blood pressure History of Singh's palsy HLD (hyperlipidemia) HTN (hypertension) Hypothyroid Kidney disease SC (myocardial infarction) Mood disorder NSTEMI (non-ST elevated myocardial infarction) PVD (peripheral vascular disease) Tachycardia Histories Past Medical History: No active or resolved past medical history items have been selected or recorded. Family History: No family history items have been selected or recorded. Procedure history: Amputation ([id number]) in 2020 at 79 Years. Comments: 07/12/2021 14:23 MariaE sther Navarro RN Left below the knee Amputation ([id number]) in 2020 at 79 Years. Comments: 07/12/2021 14:24 Maria Esther Navarro RN right below the knee amputation Catheter ([id number]) in 2020 at 79 Years. Comments: 07/12/2021 14:25 Maria Esther Navarro RN Temporary dialysis cath None ([id number]). 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 Yes Patient Dressed In Hospital gown [...] On and Limits Checked Nail Bed Color Selby Capillary Refill < 2 seconds Heart Sounds [...] Warm Temperature All Extremities Warm Skin Description Selby, Normal for ethnicity, Dry Skin Integrity Pressure points intact Skin Turgor Elastic Mucous Membrane Color Selby Mucous Membrane Description Moist Sensory Perception Dre [...] Rhythm Sinus rhythm Monitoring Lead II, V1/MCL1 MD Interval 0.17 second(s) QRS Duration 0.12 second(s) [...] Transport Mode Order Detail MTT with Monitor Ion Exchange Operator Details Form Ion Exchange Operator Details Form 01/05/2022 0:28 EDT Skin Assessment [...] Transport Mode Order Detail MTT with Monitor Ion Exchange Operator Details Form Ion Exchange Operator Details Form 01/04/2022 23:29 EDT heparin Begin [...] On and Limits Checked Nail Bed Color Selby Capillary Refill < 2 seconds Heart Sounds ICU S1S2 Heart Rhythm Regular Radial Pulse, Left 2+ Normal Radial Pulse, Right 2+ Normal Popliteal Pulse, Left 1+ Thready Popliteal Pulse, Right 1+ Thready Edema Generalized None Cardiac Rhythm Sinus rhythm Monitoring Lead II, V1/MCL1 MD Interval 0.18 second(s) QRS Duration 0.12 second(s) QT Interval 0.47 second(s) QTc Interval 0.48 second(s) Alarms On and Functional Yes Respirations Unlabored Respiratory Pattern Regular Breath Sounds Auscultated Anterior only All Lobes Breath Sounds Clear Oxygen Therapy Room air Abdomen Description Non-distended, Symmetric, Soft Abdomen Palpation Non-Tender Bowel Sounds All Quadrants Present Urinary Elimination Voiding, no difficulties All Extremity Description Selby, Normal for ethnicity Skin Temperature Warm Temperature All Extremities Warm Skin Description Selby, Normal for ethnicity Mucous Membrane Color Selby Mucous Membrane Description Moist Leg Bilateral Skin [...] On and Limits Checked Nail Bed Color Selby Capillary Refill < 2 seconds Heart Sounds ICU S1S2 Heart Rhythm Regular Radial Pulse, Left 2+ Normal Radial Pulse, Right 2+ Normal Popliteal Pulse, Left 1+ Thready Popliteal Pulse, Right 1+ Thready Edema Generalized None Cardiac Rhythm Sinus rhythm Monitoring Lead II, V1/MCL1 MD Interval 0.19 second(s) QRS Duration 0.12 second(s) [...] Facial Movement Symmetric resting/crying All Extremity Description Selby, Normal for ethnicity Skin Temperature Warm Temperature All Extremities Warm Skin Description Selby, Normal for ethnicity Skin Integrity Pressure points intact Skin Turgor Elastic Mucous Membrane Color Selby Mucous Membrane Description Moist Sensory Perception Dre No impairment Moisture Dre Rarely moist Activity Der Bedfast Mobility Dre Slightly limited Nutrition Dre [...] Symptoms Bruising Skin Temperature Warm Skin Description Selby, Normal for ethnicity Skin Integrity Intact Skin Turgor Elastic Mucous Membrane Color Selby Mucous Membrane Description Moist Sensory Perception Dre [...] On and Limits Checked Nail Bed Color Selby Capillary Refill < 2 seconds Heart Sounds [...] Facial Movement Symmetric resting/crying All Extremity Description Selby, Normal for ethnicity Skin Temperature Warm Temperature All Extremities Warm Skin Description Selby, Normal for ethnicity Skin Integrity Pressure points intact Skin Turgor Non-Elastic Mucous Membrane Color Selby Mucous Membrane Description Moist Leg Bilateral Skin [...] 11:06 EDT Blood Glucose, Capillary 148 mg/dL [place] Blood Glucose Testing Reason Routine Temperature Oral [...] Rhythm Sinus rhythm Monitoring Lead III, V1/MCL1 MD Interval 0.20 second(s) QRS Duration 0.09 second(s) [...] mEq predniSONE 10 mg mg vitamin A 97364 unit(s) unit(s) 01/04/2022 8:39 EDT Heart Rate Monitored 59 bpm LOW Reason For Taking VItal Signs Routine Primary Pain Intensity 0 Primary Pain Nonverbal Response Nods No Pain Scale Type 0-10 Pain scale Monitor Alarms On and Limits Checked Nail Bed Color Selby Capill (more content not included)... [facility] [id number] Cardiology Progress note Date of Service 01/04/22 [...] CELIO CLAROS MD on 01/04/2022 02:59 PM [facility] [id number] Cardiology Progress note Date of Service 01/04/22 [...] CELIO CLAROS MD on 01/04/2022 02:59 PM [facility] HospitalJehihvkr68-21-1069 Endocrinology Progress note Date of Service 01/04/22 Chief Complaint DM2; pre-op control Subjective Chart reviewed. Overnight events and plan of care d/w patient. Patient denies new complaints. Appetite good later in the day. Not hungry for breakfast this AM Objective Vitals and Measurements T: 36.4 C (Oral) TMIN: 36.2 C (Oral) TMAX: 36.5 C (Oral) HR: 68(Apical) RR: 18 BP: 150/69 SpO2: 92%HT: 152 cm WT: 81.5 kg BMI: 35.28 [...] Weinstein on 12/24/2021-on prednisone. He resides at [facility] past 3 months. He presented to [facility] on December 30, 2021 due to a sudden onset of alteredmental status and shortness of breath. At [facility], he was noted to have acute kidney injury with creatinine 2.3 and elevated troponin at 3577. EKG revealed normal sinus rhythm without evidenceof ST elevation or depression. Negative for COVID-19 at [facility]. He was transferred to [facility] for further evaluation. Echocardiogram on December 30, 2021 revealed an EF of 45 to 50% and mild MR. Cardiac catheterization completed showing multivessel disease.Cardiothoracic surgery has been consulted for possible surgical myocardial vascularization. Endocrine consult placed by [facility] for diabetic management. Longstanding type II diabetic with A1c of 8.4%. Currently residing at [facility] with orders in place for Humalog 32 [...] by CASPER MURRY on 01/04/2022 04:05 PM [facility] HospitalNbtipywn54-66-8352 Note ORIGINAL EXAMINATION: CTA OF THE NECK [...] Sign Date: 01/04/2022 9:39:34 AM Ordering Provider: [facility]07-18-2022 Cardiology Progress note Date of Service [...] CELIO CLAROS MD on 01/03/2022 06:35 PM [facility] HospitalIhjpfqyp71-39-9164 Note ORIGINAL EXAMINATION: CTA OF THE NECK [...] Date: 01/04/2022 9:39:34 AM Ordering Provider: BARRERA [facility]07-18-2022 Nurse Progress note [address] CT, they said patient okay to come to CT with contrast after having metformin this AM 01/03/22. Pharmacy said to check with prescriber. Dr. Claros said patient okay to go to CT with contrast after taking metformin this AM 01/03/22. Digitally Signed by Macy Bolanos RN on 01/03/2022 04:45 PM [facility] HospitalWldepyrh23-03-4469 Cardiology Progress note Date of Service 01/03/22 [...] CELIO CLAROS MD on 01/03/2022 06:35 PM [facility] HospitalFixunzmd03-74-4628 Nephrology Progress note Date of Service 01/03/2022 [...] TAMIKA RODAS MD on 01/03/2022 10:59 AM [facility] HospitalRfbuofqb11-40-8307 Endocrinology Progress note Date of Service 01/03/22 [...] Glucose, Capillary 01/03/2022 07:10:00 EDT 174 mg/dL [place] 82-115 Glucose Testing Glucose Level 01/03/2022 03:44:00 EDT 157 mg/dL HI 82-115 Glucose Testing Blood Glucose, Capillary 01/02/2022 21:13:00 EDT 222 mg/dL HI 82-115 Glucose Testing Blood Glucose, Capillary 01/02/2022 16:20:00 EDT 247 mg/dL W[place] 82-115 Glucose Testing Blood Glucose, Capillary 01/02/2022 11:29:00 EDT 177 mg/dL HI 82-115 EKG No qualifying data available. Assessment/Plan [...] Weinstein on 12/24/2021-on prednisone. He resides at [facility] past 3 months. He presented to [facility] on December 30, 2021 due to a sudden onset of alteredmental status and shortness of breath. At [facility], he was noted to have acute kidney injury with creatinine 2.3 and elevated troponin at 3577. EKG revealed normal sinus rhythm without evidenceof ST elevation or depression. Negative for COVID-19 at [facility]. He was transferred to [facility] for further evaluation. Echocardiogram on December 30, 2021 revealed an EF of 45 to 50% and mild MR. Cardiac catheterization completed showing multivessel disease.Cardiothoracic surgery has been consulted for possible surgical myocardial vascularization. Endocrine consult placed by [facility] for diabetic management. Longstanding type II diabetic with A1c of 8.4%. Currently residing at [facility] with orders in place for Humalog 32 [...] by CASPER MURRY on 01/03/2022 11:17 AM [facility] HospitalKykbvyaf52-21-5792 Cardiology Progress note Date of Service 01/02/2022 [...] BILL ALMODOVAR MD on 01/02/2022 04:22 PM [facility] HospitalAimginwh17-34-6441 Cardiology Progress note Date of Service 01/02/2022 [...] BILL ALMODOVAR MD on 01/02/2022 04:22 PM [facility] HospitalRjczdlyc42-00-4502 Endocrinology Progress note Date of Service 01/02/22 [...] Glucose, Capillary 01/02/2022 11:29:00 EDT 177 mg/dL WY 82-115 Glucose Testing Blood Glucose, Capillary 01/02/2022 07:13:00 EDT 91 mg/dL 82-115 Glucose Testing Glucose Level 01/02/2022 02:25:00 EDT 94 mg/dL 82-115 Glucose Testing Blood Glucose, Capillary 01/01/2022 22:04:00 EDT 123 mg/dL HI 82-115 Glucose Testing Blood Glucose, Capillary 01/01/2022 18:20:00 EDT 131 mg/dL HI 82-115 Glucose Testing Blood Glucose, Capillary 01/01/2022 18:20:00 EDT 131 mg/dL WY 82-115 EKG EKG - Completed -- 12/30/21 [...] Weinstein on 12/24/2021-on prednisone. [facility] He presented to [facility] on December 30, 2021 due to a sudden onset of alteredmental status and shortness of breath. At [facility], he was noted to have acute kidney injury with creatinine 2.3 and elevated troponin at 3577. EKG revealed normal sinus rhythm without evidenceof ST elevation or depression. Negative for COVID-19 at [facility]. He was transferred to [facility] for further evaluation. Echocardiogram on December 30, 2021 revealed an EF of 45 to 50% and mild MR. Cardiac catheterization completed showing multivessel disease.Cardiothoracic surgery has been consulted for possible surgical myocardial vascularization. Endocrine consult placed by [facility] for diabetic management. Longstanding type II diabetic with A1c of 8.4%. Currently residing at [facility] with orders in place for Humalog 32 units with lunch and supper, Toujeo 70 units nightly, sliding scale 3 to 12 units with meals and at bedtime. History of CKD. GFR 43 today. QUIN initially on presentation to [facility]. [...] same inpatient. Last 24 Hours: Met w/ school crossing guard supervisor; appreciate input and teaching. Current orders are in place for a 2-18 sliding scale with meals and at bedtime alone. Blood glucose this morning with the same 91. Discussed with [facility] COACH Katelynn. OHS work-up continues. No definitive date for CABG. Add low-dose metformin 500 mg twice daily. Hold off on SGLT2 until postop. GLP analog could be considered outpatient. Reintroduction of basal IP as needed. Discussed with bedside RN Will continue to follow while inpatient. Time Spent Total time spent 25 minutes Digitally Signed by CASPER MURRY on 01/02/2022 01:55 PM [facility] [id number] Nurse Progress note A student nurse administered medications and completed assessments on this patient under my supervision this evening. Nayeli Beckham RN Digitally Signed by KAVIN Beckham on 01/02/2022 01:02 AM [facility] HospitalJqepmhtz04-04-5674 Cardiology Progress note Date of Service 01/01/2022 [...] BILL ALMODOVAR MD on 01/01/2022 08:04 PM [facility] HospitalYathklhb31-87-7055 Cardiology Progress note Date of Service 01/01/2022 [...] BILL ALMODOVAR MD on 01/01/2022 08:04 PM [facility] HospitalUxnaeslb59-08-0855 Note I saw and evaluated the patient on 01/01/2022. I agree with the SENIOR CONSUMER INSIGHTS CONSULTANT note of 12/31/2021. The patient is an [...] TRINY HERNANDEZ MD on 01/01/2022 10:53 AM [facility] HospitalVezshrcn86-84-3553 Cardiothoracic surgery Consult note Date of Service [...] Weinstein on 12/24/2021-on prednison. He resides at [facility] for the past 3 months. He presented to [facility] on December 30, 2021 due to a sudden onset of altered mental status and shortness of breath. He endorses nonproductive cough. Denied any chest pain or syncope. At [facility], he was noted to have acute kidney injury with creatinine 2.3 and elevated troponin at 3577. EKG revealed normal sinus rhythm without evidence of ST elevation or depression. Negativefor COVID-19 at [facility]. He was transferred to [facility] for further evaluation. Echocardiogram on December 30, 2021 revealed an EF of 45 to 50% and mild MR. Cardiac catheterization completed earlier today showing multivessel disease (official cath report pending at the time of this dictation). Cardiothoracic surgery has been consulted for possible surgical myocardial vascularization. Eliquis was discontinued per halfway reports on September 01, 2021. Patient is [...] follows with Dr. Montgomery of nephrology in [place]. 5. AF (paroxysmal atrial fibrillation) Currently in [...] past medical history from EMR and transfer halfway documentation, conducting xyzi-ij-ispr visit with patient at bedside, and dictating [...] Patient denies Living arrangements: Currently lives at [facility] however lived at home prior to Ambulatory [...] by YIMI NEWELL on 12/31/2021 05:21 PM [facility] [id number] Endocrinology Consult note Date of Service 01/01/22 [...] Weinstein on 12/24/2021-on prednisone. [facility] resides at [facility] past [facility]. He presented to [facility] on December 30, 2021 due to a sudden onset of alteredmental status and shortness of breath. At [facility], he was noted to have acute kidney injury with creatinine 2.3 and elevated troponin at 3577. EKG revealed normal sinus rhythm without evidenceof ST elevation or depression. Negative for COVID-19 at [facility]. He was transferred to [facility] for further evaluation. Echocardiogram on December 30, 2021 revealed an EF of 45 to 50% and mild MR. Cardiac catheterization completed showing multivessel disease.[facility]. Endocrine consult placed by [facility] for diabetic management. Blood sugar trends, labs, chart reviewed Patient reports at least a 40-year history of type 2 diabetes. Managed by his PCP. Currently resides at [facility]. He is unable to speak to his [...] not caring much for the food at [facility]. He reports weight of 156 p ounds [...] Glucose Level 01/01/2022 03:10:00 EDT 180 mg/dL HI 82-115 EKG EC12/30/21: SINUS RHYTHM...normal P axis, [...] Subcutaneous, achs, NOW, 0, 01/01/22 8:24:00 EDT [place] [employer] Diet Consult to Diabetes Education [...] Weinstein on 12/24/2021-on prednisone. [facility] He presented to [facility] on December 30, 2021 due to a sudden onset of alteredmental status and shortness of breath. At [facility], he was noted to have acute kidney injury with creatinine 2.3 and elevated troponin at 3577. EKG revealed normal sinus rhythm without evidenceof ST elevation or depression. Negative for COVID-19 at [facility]. He was transferred to [facility] for further evaluation. Echocardiogram on December 30, 2021 revealed an EF of 45 to 50% and mild MR. Cardiac catheterization completed showing multivessel disease.Cardiothoracic surgery [facility] consulted for possible surgical myocardial vascularization. Endocrine consult placed by CTS for diabetic management. Longstanding type II diabetic with A1c of 8.4%. Currently residing at [facility] with orders in place for Humalog 32 units with lunch and supper, Toujeo 70 units nightly, sliding scale 3 to 12 units with meals and at bedtime. History of CKD. GFR 46 here today. QUIN initially on presentation to . [...] by CASPER MURRY on 01/01/2022 03:38 PM [id number] Nephrology Progress note Date of Service 01/01/2022 [...] TAMIKA RODAS MD on 01/01/2022 09:57 AM [id number] Nephrology Progress note Date of Service 01/01/2022 [...] TAMIKA RODAS MD on 01/01/2022 09:57 AM [id number] Cardiothoracic surgery Consult note Date of Service [...] Weinstein on 12/24/2021-on prednison. He resides at [facility] for the past 3 months. He presented to [facility] on December 30, 2021 due to a sudden onset of altered mental status and shortness of breath. He endorses nonproductive cough. Denied any chest pain or syncope. At [facility], he was noted to have acute kidney injury with creatinine 2.3 and elevated troponinat 3577. EKG revealed normal sinus rhythm without evidence of ST elevation or depression. Negative for COVID-19 at [facility]. He was transferred to [facility] for further evaluation. Echocardiogram on December 30, 2021 revealed an EF of 45 to 50% and mild MR. Cardiac catheterization completed earlier today showing multivessel disease (official cath report pending at the time of this dictation). Cardiothoracic surgery has been consulted for possible surgical myocardial vascularization. Eliquis was discontinued per halfway reports on September 01, 2021. Patient is [...] (Oral) HR: 59(Monitored) RR: 18 BP: 187/69 SpO2:93% Weight Dosing Weight: 103.1 kg (12/30/21) Constitutional: [...] follows with Dr. Montgomery of nephrology in [place]. 5. AF (paroxysmal atrial fibrillation) Currently in [...] past medical history from EMR and transfer halfway documentation, conducting dcjz-fu-dxog visit with patient at bedside, and dictating [...] Patient denies Living arrangements: Currently lives at [address] however lived at home prior to [...] by YIMI NEWELL on 12/31/2021 05:21 PM [id number] Nephrology Progress note Date of Service 12/31/2021 [...] TAMIKA RODAS MD on 12/31/2021 11:26 AM [id number] Note ORIGINAL EXAMINATION: ONE XRAY VIEW OF [...] Sign Date: 12/31/2021 8:13:17 AM Ordering Provider: [facility]07-14-2022 History and physical note Date of Service 12/30/2021 Chief Complaint chest pain History of Present Illness This is a 81-year-old male, halfway resident with prior history of atrial fibrillation, type 2diabetes, hypothyroidism, mood disorder, bilateral BKA's, hyperlipidemia who presented to due toaltered mental status. He was there diagnosed with non-ST elevation SC with troponin elevation of 3000 and uptrending. Patient also had an QUIN with creatinine 2.3. Currently patient denies any chest pain or palpitations. He denies prior history of coronary artery disease. However on further questioning does endorse he may have had a left heart catheterization at [facility] 1 year ago. Patient is a poor [...] 36 Hour Lab Data Assessment/Plan Non-ST elevation SC ? history of atrial fibrillation on Eliquis, [...] has history of atrial fibrillation but per halfway has not been on his Eliquis or [...] DE LEÓN MD on 12/30/2021 10:03 AM [id number] Evaluation + Plan noteExtracted from: Title:History and Physical Author:HASEEB DE LEÓN MD Date:12/30/21 Non-ST elevation SC ? history of atrial fibrillation on Eliquis, [...] has history of atrial fibrillation but per halfway has not been on his Eliquis or [...] MILL Appointment Type:CV OV Hospital Follow Up [facility] 07-14-2022 Nephrology Consult note Date of Service 12/30/2021 Reason for Consultation Stage III CKD, needs clearance for cardiac catheterization. Referring Physician Dr. Hidalgo. History of Present Illness Mr. Modi is a very pleasant 81-year-old gentleman with past medical history of hypertension, diabetes, atrial fibrillation on anticoagulation, hypothyroidism who is a resident of nursing facility in [place]. Patient was sent to [facility] due to altered mental status. He was also having chest pain. Initial lab work done at [facility] showed elevated troponin in the range of 3000.Patient was diagnosed with acute non-STEMI. He was transferred to [facility] for further management. He also had acute renal failure with creatinine of around 2.3 at ER. Repeat blood work in [place] showed that his creatinine has improved to 1.9. Patient does have history of CKD and follows with Dr. Montgomery in [place]. Dr. Montgomery does not have privileges at [facility]. Renal consultation was requested for acute [...] diarrhea, abdominal pain. He has been at halfway in [place] from July 2021. Per family he is going to be at the halfway long-term. Patient developed c hest pain and altered mental status at halfway for which he was sent to ER. Over there he was diagnosed with acute non-STEMI with elevated troponin levels and eventually transferred to [facility]. His home medication list includes JERO inhibitor. [...] baseline creatinine, follows with Dr. Montgomery in [place] Hyperlipidemia Atrial fibrillation Procedure/Surgical History Cardiac catheterization [...] tablet, 30 mg= 3 tab(s), Oral, qDay Toujeo Max [employer] [...] TAMIKA RODAS MD on 12/30/2021 11:57 AM [facility] [id number] History and physical note Date of Service 12/30/2021 Chief Complaint chest pain History of Present Illness This is a 81-year-old male, halfway resident with prior history of atrial fibrillation, type 2diabetes, hypothyroidism, mood disorder, bilateral BKA's, hyperlipidemia who presented to due toaltered mental status. He was there diagnosed with non-ST elevation SC with troponin elevation of 3000 and uptrending. Patient also had an QUIN with creatinine 2.3. Currently patient denies any chest pain or palpitations. He denies prior history of coronary artery disease. However on further questioning does endorse he may have had a left heart catheterization at [facility] 1 year ago. Patient is a poor [...] 36 Hour Lab Data Assessment/Plan Non-ST elevation SC ? history of atrial fibrillation on Eliquis, [...] has history of atrial fibrillation but per halfway has not been on his Eliquis or [...] DE LEÓN MD on 12/30/2021 10:03 AM [facility] [id number] Hospital Discharge instructions Follow Up Care 12/30/2021 04:59:03 With:[facility] Address: [address] [place] [address] [address] [facility] [place] [address]- When:01/17/2022 13:30:00 Comments:please obtain a CXR 1 hour prior to your appt. With:Discharge to [facility] ICF LOC [phone] Address:Unknown When:1-2 days With:KARL HIDALGO MD Address: [address] [facility] [place] [address]- When:02/15/2022 10:00:00 With:Cardiac Rehab- [facility] Address: [facility] [address] [place] [address]- When: Unknown Comments:The Cardiac Rehab department will call you to schedule you for phase 2. We left you a brochure withinformation about cardiac rehab. If you have any questions please call [phone]. [facility] 08-24-2021 History of Present illness Narrative* Thu Roche RN - 02/09/2021 11:33 AM EDT Discharge instructions given to pt and engineering secretary at bedside. All questions answered. All belongingsat bedside. VSS. Pt resting comfortably, denies pain * Thu Roche RN - 02/09/2021 11:17 AM EDT Report called to Leighann VALE at [facility] * Thu Rohce RN - 02/09/2021 11:08 AM EDT assistant district attorney to bedside * Thu Roche RN - 02/09/2021 11:03 AM EDT Pt arrived to [facility] [address]. Attached to cloth beamer. VSS. licensed sales assistant updated * Lindsey Morales RN - 02/09/2021 8:33 AM EDT Notified anesthesia blood sugar is 284 * Jazmín Burton RN - 02/05/2021 4:[address] Vicente's office called and stated pt should not hold Eliquis nor Aspirin before surgery. Will include on pre-op instructions for facility. documented in this [facility] Work Phone: Anesthesiology Consult note* LINN RICHARD [...] SIGN Event Display: Anesthesiology Consultation Authored Date: [id number] Patient: ELIZABETH MODI Age: 81 years Sex: [...] kidney disease), stage III / SNOMED CT 3932290964 / Confirmed CAD (coronary artery disease) / SNOMED CT 78972681 / Confirmed Diabetes / SNOMED CT 962701258 / Confirmed History of Singh's palsy / SNOMED CT 228972107 / Confirmed HLD (hyperlipidemia) / SNOMED CT 75798981 / Confirmed HTN (hypertension) / SNOMED CT 9573955554 / Confirmed Hypothyroid / SNOMED CT 04195015 / Confirmed QUIN (acute kidney injury) / SNOMED CT 05820222 / Confirmed Mood disorder / SNOMED CT 28320461 / Confirmed NSTEMI (non-ST elevated myocardial infarction) / SNOMED CT 53984417 / Confirmed AF (paroxysmal atrial fibrillation) / SNOMED CT 358965185 / Confirmed PVD (peripheral vascular disease) / SNOMED CT 4645562995 / Confirmed Giant cell arteritis / SNOMED CT 9522240591 / Confirmed, Active Problems (24) AF (paroxysmal atrial fibrillation) QUIN (acute kidney injury) CAD (coronary artery disease) Cataract CKD (chronic kidney disease), stage III COPD (chronic obstructive pulmonary disease) Depression Diabetes DM (diabetes mellitus) Giant cell arteritis Giant cell arteritis syndrome Glasses Heart disease High blood pressure History of Singh's palsy HLD (hyperlipidemia) HTN (hypertension) Hypothyroid Kidney disease SC (myocardial infarction) Mood disorder NSTEMI (non-ST elevated myocardial infarction) PVD (peripheral vascular disease) Tachycardia Histories Past Medical History: No active or resolved past medical history items have been selected or recorded. Family History: No family history items have been selected or recorded. Procedure history: Amputation ([id number]) in 2020 at 79 Years. Comments: 07/12/2021 14:23 Maria Esther Navarro RN Left below the knee Amputation ([id number]) in 2020 at 79 Years. Comments: 07/12/2021 14:24 Maria Esther Navarro RN right below the knee amputation Catheter ([id number]) in 2020 at 79 Years. Comments: 07/12/2021 14:25 Maria Esther Navarro RN Temporary dialysis cath None ([id number]). 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 Yes Patient Dressed In Hospital gown [...] On and Limits Checked Nail Bed Color Selby Capillary Refill < 2 seconds Heart Sounds [...] Warm Temperature All Extremities Warm Skin Description Selby, Normal for ethnicity, Dry Skin Integrity Pressure points intact Skin Turgor Elastic Mucous Membrane Color Selby Mucous Membrane Description Moist Sensory Perception Dre [...] Rhythm Sinus rhythm Monitoring Lead II, V1/MCL1 MD Interval 0.17 second(s) QRS Duration 0.12 second(s) [...] Transport Mode Order Detail MTT with Monitor Ion Exchange Operator Details Form Ion Exchange Operator Details Form 01/05/2022 0:28 EDT Skin Assessment [...] Transport Mode Order Detail MTT with Monitor Ion Exchange Operator Details Form Ion Exchange Operator Details Form 01/04/2022 23:29 EDT heparin Begin [...] On and Limits Checked Nail Bed Color Selby Capillary Refill < 2 seconds Heart Sounds ICU S1S2 Heart Rhythm Regular Radial Pulse, Left 2+ Normal Radial Pulse, Right 2+ Normal Popliteal Pulse, Left 1+ Thready Popliteal Pulse, Right 1+ Thready Edema Generalized None Cardiac Rhythm Sinus rhythm Monitoring Lead II, V1/MCL1 MD Interval 0.18 second(s) QRS Duration 0.12 second(s) QT Interval 0.47 second(s) QTc Interval 0.48 second(s) Alarms On and Functional Yes Respirations Unlabored Respiratory Pattern Regular Breath Sounds Auscultated Anterior only All Lobes Breath Sounds Clear Oxygen Therapy Room air Abdomen Description Non-distended, Symmetric, Soft Abdomen Palpation Non-Tender Bowel Sounds All Quadrants Present Urinary Elimination Voiding, no difficulties All Extremity Description Selby, Normal for ethnicity Skin Temperature Warm Temperature All Extremities Warm Skin Description Selby, Normal for ethnicity Mucous Membrane Color Selby Mucous Membrane Description Moist Leg Bilateral Skin [...] On and Limits Checked Nail Bed Color Selby Capillary Refill < 2 seconds Heart Sounds ICU S1S2 Heart Rhythm Regular Radial Pulse, Left 2+ Normal Radial Pulse, Right 2+ Normal Popliteal Pulse, Left 1+ Thready Popliteal Pulse, Right 1+ Thready Edema Generalized None Cardiac Rhythm Sinus rhythm Monitoring Lead II, V1/MCL1 MD Interval 0.19 second(s) QRS Duration 0.12 second(s) [...] Facial Movement Symmetric resting/crying All Extremity Description Selby, Normal for ethnicity Skin Temperature Warm Temperature All Extremities Warm Skin Description Selby, Normal for ethnicity Skin Integrity Pressure points intact Skin Turgor Elastic Mucous Membrane Color Selby Mucous Membrane Description Moist Sensory Perception Dre [...] Symptoms Bruising Skin Temperature Warm Skin Description Selby, Normal for ethnicity Skin Integrity Intact Skin Turgor Elastic Mucous Membrane Color Selby Mucous Membrane Description Moist Sensory Perception Dre [...] On and Limits Checked Nail Bed Color Selby Capillary Refill < 2 seconds Heart Sounds [...] Facial Movement Symmetric resting/crying All Extremity Description Selby, Normal for ethnicity Skin Temperature Warm Temperature All Extremities Warm Skin Description Selby, Normal for ethnicity Skin Integrity Pressure points intact Skin Turgor Non-Elastic Mucous Membrane Color Selby Mucous Membrane Description Moist Leg Bilateral Skin [...] Rhythm Sinus rhythm Monitoring Lead III, V1/MCL1 MD Interval 0.20 second(s) QRS Duration 0.09 second(s) [...] mEq predniSONE 10 mg [place] vitamin A 30292 unit(s) unit(s) 01/04/2022 8:39 EDT Heart Rate Monitored 59 bpm LOW Reason For Taking VItal Signs Routine Primary Pain Intensity 0 Primary Pain Nonverbal Response Nods No Pain Scale Type 0-10 Pain scale Monitor Alarms On and Limits Checked Nail Bed Color Selby Capillary Refill < 2 seconds Heart Sounds [...] Facial Movement Symmetric resting/crying All Extremity Description Selby, Normal for ethnicity Skin Temperature Warm Temperature All Extremities Warm Skin Description Selby, Normal for ethnicity Skin Integrity Pressure points intact Skin Turgor Non-Elastic Mucous Membrane Color Selby Mucous Membrane Description Moist Leg Bilateral Wound [...] Transport Mode Order Detail MTT with Monitor Ion Exchange Operator Details Form Ion Exchange Operator Details Form 01/04/2022 7:11 EDT Blood Glucose, [...] Rhythm Sinus rhythm Monitoring Lead III, V1/MCL1 MD Interval 0.18 second(s) QRS Duration 0.09 second(s) [...] Type 0-10 Pain scale Nail Bed Color Selby Capillary Refill < 2 seconds Heart Sounds [...] Facial Movement Symmetric resting/crying All Extremity Description Selby, Normal for ethnicity Skin Temperature Warm Temperature All Extremities Warm Skin Description Normal for ethnicity Skin Integrity Pressure points intact Skin Turgor Non-Elastic Mucous Membrane Color Selby Mucous Membrane Description Moist Leg Bilateral Skin [...] Rhythm Sinus rhythm Monitoring Lead III, V1/MCL1 MD Interval 0.20 second(s) QRS Duration 0.09 second(s) [...] Light Use Yes . Assessment and Plan [place] [employer] Anesthesiologists (ASA) physical status classification: [...] LINN RICHARD DO on 01/05/2022 07:59 AM [facility] Evaluation + Plan note Future Appointments Appointment Date:02/07/2022 01:00:00 PM Scheduled Provider:HUNTER FALCON Location:[facility] Appointment Type:CTS OV Post Op Follow Up Appointment Date:02/15/2022 10:00:00 AM Scheduled Provider: Location:[facility] Appointment Type:CV OV Hospital Follow Up Future Scheduled Tests Radiology* XR Chest 2 Views (PA & Lateral) 02/07/22 [facility] evalusxzro note* Diagnosis Optic nerve edema- Primary Papilloedema, unspecified [facility] Vision changes- Primary Unspecified visual disturbance Photosensitivity Acute dermatitis due to solar radiation PVD (peripheral vascular disease) ([facility]) Peripheral vascular disease, unspecified Type 2 diabetes mellitus with other specified complication, without long-term current use of insulin (HCC) 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 Encounter for long-term (current) use of steroids Vitamin D deficiency Unspecified vitamin D deficiency [facility] Diagnosis Onset Date Resolution Status Renal mass acute Calculous cholecystitis with obstruction resolved Choledocholithiasis resolved Cholecystostomy care acute Renal mass [facility] Work Phone: evaluation note* Diagnosis Onset Date Resolution Status Renal mass acute Calculous cholecystitis with obstruction resolved Choledocholithiasis resolved Cholecystostomy care acute Renal mass acute Cholecystostomy care [facility] Work Phone: Evaluation note* Diagnosis Screening for genitourinary condition- Primary Screening for other and unspecified genitourinary condition Gross hematuria Left renal mass Unspecified disorder of kidney and ureter documented in this encounter [facility] note* Diagnosis Gross hematuria documented in this encounter [facility] note* Diagnosis Gross hematuria- Primary Screening for genitourinary condition Screening for other and unspecified genitourinary condition documented in this encounter [facility] note* Diagnosis Gross hematuria- Primary documented in this encounter [facility] note* Diagnosis Gross hematuria- Primary Left renal mass Unspecified disorder of kidney and ureter documented in this encounter [facility] course Narrative No data available for this section [facility] Hospital Discharge instructions* Instructions* Ammy Vicente [...] next day as directed. 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 Yes January 11, 2024 7:47am Advance Directive Response Recorded Date/ Time Do you have a Healthcare Power of Maple Syrup Maker? Yes October 15, 2024 5:49pm Name of Medical Power of Maple Syrup Maker angelic sue t October 15, 2024 5:49pm Hospital Course Note HNO ID: [id number] Author: Emily Prescott DO Service: General Surgery Author Type: [...] (more content not included)... Note HNO ID: [id number] Author: Teo chase (Res) DO Roger Service: [...] Specialty Diagnoses / Procedures Referred By Barb durán Referred To Contact CT IMAGING Diagnoses Gross hematuria Procedures CT UROGRAM WO/W IVCON CT ABD & PELVIS W/WO CONTRST 1+ BODY Nikolai Fisher PA-C [address] [place] [address] [place] [address] Referral ID Status Reason Start Date Expiration Date Visits Requested Visits Authorized [id number] Authorized Auto-Generat ed Referral 06/25/2024 07/18/2025 1 1 Specialty Diagnoses / Procedures Referred By Barb durán Referred To Contact Ophthalmology Diagnoses Vision changes Photosensitivity Procedures CONSULT TO OPHTHALMOLOGY OFFICE/OUTPATIENT NEW HIGH MDM 60-74 MINUTES Shana Ga MD [address] [place] [address] Referral ID Status Reason Start Date Expiration Date Visits Requested Visits Authorized [id number] Authorized PCP Requested Referral 09/01/2022 09/01/2023 1 [...] 3 M FU June 06, 2024 3:30pm [facility] June 17 1:00pm NEW CONCERN June 17, 2024 3:17pm LABWORK June 20, 2024 5: 00am [facility] June 27, 2024 5:50am MONTHLY EXAM July 05, 2024 3 :48pm MONTHLY EXAM July 23, 2024 4 :43pm [facility] July 24, 2024 4:00am LABWORK August 01, 2024 2:00pm LABWORK August 21, 2024 5:00 am 4 M FU September 06, 2024 1:3 8pm Reason for Visit Admit Date Fecal incontinence June 06, 2024 3:30pm S/P ERCP June 06, 2024 3:30pm Fecal incontinence September 06, 2024 1:3 8pm S/P ERCP September 06, 2024 1:3 8pm Chief Complaint Admit Date [facility] LAB WORK June 17 1:00pm NEW CONCERN June 17, 2024 3:17pm LABWORK June 20, 2024 5: 00am [facility] June 27, 2024 5:50am MONTHLY EXAM July 05, 2024 3 :48pm MONTHLY EXAM July 23, 2024 4 :43pm [facility] July 24, 2024 4:00am LABWORK [...] Date LABWORK June 20, 2024 5: 00am [facility] June 27, 2024 5:50am MONTHLY EXAM July 05, 2024 3 :48pm MONTHLY EXAM July 23, 2024 4 :43pm GROUP [facility] WORK July 24, 2024 4:00am LABWORK August 01, 2024 2:00pm LABWORK August 21, 2024 5:00 am MONTHLY EXAM September 03, 2024 6:1 1pm NEW CONCERN September 05, 2024 1:1 5pm 4 M FU September 06, 2024 1:3 8pm LABWORK September 18, 2024 5:00 am fall October 15, 2024 3:5 7pm Chief Complaint Admit Date MONTHLY EXAM July 23, 2024 4 :43pm [facility] WORK July 24, 2024 4:00am LABWORK August 01, 2024 2:00pm LABWORK August 21, 2024 5:00 am MONTHLY EXAM September 03, 2024 6:1 1pm NEW CONCERN September 05, 2024 1:1 5pm 4 M FU September 06, 2024 1:3 8pm LABWORK September 18, 2024 5:00 am fall October 15, 2024 3:5 7pm FU [facility] WANTED SOONER THAN DECEMBER SO DIDN'T WANT POLISHER APPRENTICE October 16, 2024 7:59am LABWORK October 23, 2024 5:00am Reason for Visit Admit Date Fecal incontinence September 06, 2024 1:3 8pm S/P ERCP September 06, 2024 1:3 8pm 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 October 16, [...] WANTED SOONER THAN DECEMBER SO DIDN'T WANT POLISHER APPRENTICE October 16, 2024 7:59am LABWORK October 23, 2024 5:00am [facility] WORK November 07, 2024 5:0 0am [...] WANTED SOONER THAN DECEMBER SO DIDN'T WANT POLISHER APPRENTICE October 16, 2024 7:59am LABWORK October 23, 2024 5:00am [facility] WORK November 07, 2024 5:0 0am LABWORK November 20, 2024 5:00a m Chief Complaint Admit Date LABWORK September 18, 2024 5:00 am Monthly Exam September 24, 2024 3:41 pm New Concern October 01, 2024 3:2 5pm fall October 15, 2024 3:5 7pm FU [place] WANTED SOONER THAN DECEMBER SO DIDN'T WANT POLISHER APPRENTICE October 16, 2024 7:59am LABWORK October 23, 2024 5:00am [facility] LAB WORK November 07, 2024 5:0 0am LABWORK November 20, 2024 5:00a m MONTHLY EXAM December 03, 2024 3:30 pm LABWOKR December 18, 2024 5:00a m Reason for Visit Admit Date 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 October 16, [...] section and content) DATE CREATED AUTHOR 05/19/2020 [facility] DATE CREATED AUTHOR AUTHOR'S ORGANIZ ATION 05/21/2020 [facility] DATE CREATED AUTHOR AUTHOR'S ORGANIZ ATION 02/11/2021 [facility] DATE CREATED AUTHOR AUTHOR'S ORGANIZ ATION 08/05/2021 [facility] DATE CREATED AUTHOR AUTHOR'S ORGANIZ ATION 09/07/2021 [facility] DATE CREATED AUTHOR AUTHOR'S ORGANIZ ATION 04/15/2023 [facility] DATE CREATED AUTHOR AUTHOR'S ORGANIZ ATION 01/11/2024 [facility] DATE CREATED AUTHOR AUTHOR'S ORGANIZ ATION 10/06/2024 [facility] DATE CREATED AUTHOR AUTHOR'S ORGANIZ ATION 01/15/2025 [facility] DATE CREATED AUTHOR AUTHOR'S ORGANIZ ATION 01/21/2025 [facility] DATE CREATED AUTHOR AUTHOR'S ORGANIZ ATION 01/24/2025 [facility] Scheduled Active and Recently Administ ered Medications [...] 09 (Given - Provid er: Lindsey Morales RN)0921 [...] Central Line = 20 mL/lumen, Post-op 1130 (Due)2099 (Due) tetracaine (TETRAVISC) 0.5 % ophthalmic solution [...] RN)0925 (Given - Provider: Lindsey Morales RN) Continuous [...] or prosecute any alcohol or drug abuse patient.[facility] the event this information is protected by the Federal Confidentiality of Alcohol and Drug Abuse Patient Records regulations: The Federal rules restrict any use of the information to criminally investigate or prosecute any alcohol or drug abuse patient.[facility] the event this information is protected by the Federal Confidentiality of Alcohol and Drug Abuse Patient Records regulations: The Federal rules restrict any use of the information to criminally investigate or prosecute any alcohol or drug abuse patient.[facility] the event this information is protected by the Federal Confidentiality of Alcohol and Drug Abuse Patient Records regulations: The Federal rules restrict any use of the information to criminally investigate or prosecute any alcohol or drug abuse patient.[facility] the event this information is protected by the Federal Confidentiality of Alcohol and Drug Abuse Patient Records regulations: The Federal rules restrict any use of the information to criminally investigate or prosecute any alcohol or drug abuse patient.[facility] the event this information is protected by the Federal Confidentiality of Alcohol and Drug Abuse Patient Records regulations: The Federal rules restrict any use of the information to criminally investigate or prosecute any alcohol or drug abuse patient.[facility] the event this information is protected by the Federal Confidentiality of Alcohol and Drug Abuse Patient Records regulations: The Federal rules restrict any use of the information to criminally investigate or prosecute any alcohol or drug abuse patient.[facility] the event this information is protected by the Federal Confidentiality of Alcohol and Drug Abuse Patient Records regulations: The Federal rules restrict any use of the information to criminally investigate or prosecute any alcohol or drug abuse patient.[facility] the event this information is protected by the Federal Confidentiality of Alcohol and Drug Abuse Patient Records regulations: The Federal rules restrict any use of the information to criminally investigate or prosecute any alcohol or drug abuse patient.[facility] the event this information is protected by the Federal Confidentiality of Alcohol and Drug Abuse Patient Records regulations: The Federal rules restrict any use of the information to criminally investigate or prosecute any alcohol or drug abuse patient.[facility] the event this information is protected by the Federal Confidentiality of Alcohol and Drug Abuse Patient Records regulations: The Federal rules restrict any use of the information to criminally investigate or prosecute any alcohol or drug abuse patient.[facility] the event this information is protected by the Federal Confidentiality of Alcohol and Drug Abuse Patient Records regulations: The Federal rules restrict any use of the information to criminally investigate or prosecute any alcohol or drug abuse patient.[facility] the event this information is protected by the Federal Confidentiality of Alcohol and Drug Abuse Patient Records regulations: The Federal rules restrict any use of the information to criminally investigate or prosecute any alcohol or drug abuse patient.[facility] Hospital[facility] the event this information is protected by the Federal Confidentiality of Alcohol and Drug Abuse Patient Records regulations: The Federal rules restrict any use of the information to criminally investigate or prosecute any alcohol or drug abuse patient.[facility] Care Teams (unrecognized sec tion and content) [...] End: September 03, 2024 Christina Whipple NP, COACH-C Attending Provider Active Start: September 03, 2024 End: September 03, 2024 Team Status: Inactive Member Role Status Dates Dr. Diana Salmeron MD Primary Care Provider Active Start: September 05, 2024 End: September 05, 2024 Christina Whipple COACH, COACH-C Attending Provider Active Start: September 05, 2024 [...] Care Provider Active Start: November 07, 2024 MIGUEL Clemons Attending Provider [...] June 17, 2024 End: June 17, 2024 TOM Malloy NPC Attending Provider Active Start: June 17, 2024 [...] Status: Inactive Member Role Status Dates Dr. iDana Salmeron MD Primary Care Provider Active Start: July 05, 2024 End: July 05, 2024 Christina Whipple COACH, COACH-C Attending Provider Active Start: July 05, 2024 End: July 05, 2024 Sales And Service Associate Relationship Specialty Start Date End Date Dexter Reyes Chi [address] [id number] PCP - General Gerontology 12/06/19 Ryan Rodrigues MD [address] [facility] [place] [place] [phone] Infectious Diseases 12/06/19 aYdi White, [address] [place] [address] Urology 04/28/20 Sales And Service Associate Relationship Specialty Start Date End Date Diana Salmeron MD [address] [place], [place] [id number] PCP - General Internal Medicine 09/01/22 Ryan Rodrigues MD [address] [facility] [place] [address] Infectious Diseases 12/06/19 Yadi White, [address] [place] [address] Urology 04/28/20 Isac Lucas [address] [place], [place] [address] Referring Ophthalmology 06/27/22 Sales And Service Associate Relationship Specialty Start Date End Date Diana Salmeron MD [address] [place] [address] PCP - General Internal Medicine 09/01/22 Ryan Rodrigues MD [address] [facility] [place] [address] Infectious Diseases 12/06/19 Yadi White, DO [address] [place] [address] Urology 04/28/20 Isac Lucas [address] [place], [place] [address] Referring Ophthalmology 06/27/22 Sales And Service Associate Relationship Specialty Start Date End Date Diana Salmeron MD [address] [place], [place] [address] PCP - General Internal Medicine 09/01/22 Ryan Rodrigues MD [address] [facility] [place] [address] Infectious Diseases 12/06/19 Yadi White, DO [address] [place] [address] Urology 04/28/20 Isac Lucas [address] [place], [place] [address] Referring Ophthalmology 06/27/22 Team Status: Active Member [...] MD Attending Provider, Referring P rovider Active Sales And Service Associate Relationship Specialty Start Date End Date Diana Salmeron MD [address] [place] [address] PCP - General Internal Medicine 09/01/22 Ryan Rodrigues MD [address] [facility] [address] Infectious Diseases 12/06/19 Yadi White DO [address] [place] [address] Urology 04/28/20 Isac Lucas [address] [place] [address] Referring Ophthalmology 06/27/22 Sales And Service Associate Relationship Specialty Start Date End Date Diana Salmeron MD [address] [place], [place] [address] PCP - General Internal Medicine 09/01/22 Ryan Rodrigues MD [address] [place] [address] Infectious Diseases 12/06/19 Yadi White DO [address] [place] [address] Urology 04/28/20 Isac Lucas [address] [place], [place] [address] Referring Ophthalmology 06/27/22 Sales And Service Associate Relationship Specialty Start Date End Date Diana Salmeron MD [address] [place], [place] [address] PCP - General Internal Medicine 09/01/22 Ryan Rodrigues MD [address] [place] [address] Infectious Diseases 12/06/19 Yadi White DO [address] [place] [address] Urology 04/28/20 Isac Lucas [address] [place] [address] Referring Ophthalmology 06/27/22 Sales And Service Associate Relationship Specialty Start Date End Date Diana Salmeron MD [address] [place], [place] [id number] PCP - General Internal Medicine 09/01/22 Ryan Rodrigues MD [address] [facility] [place] [address] Infectious Diseases 12/06/19 Yadi White DO [address] [place] [address] Urology 04/28/20 Isac Lucas [address] [place] [address] Referring Ophthalmology 06/27/22 Sales And Service Associate Relationship Specialty Start Date End Date Diana Salmeron MD [address] [place], [place] [address] PCP - General Internal Medicine 09/01/22 Ryan Rodrigues MD [address] [facility] [place] [address] Infectious Diseases 12/06/19 Yadi White DO [address] [place] [address] Urology 04/28/20 Isac Lucas [address] [place], [place] [address] Referring Ophthalmology 06/27/22 Team Status: Inactive Member [...] Attending Provider Active Start: September 18, 2024 Sales And Service Associate Relationship Specialty Start Date End Date Diana Salmeron MD [address] [place] [address] PCP - General Internal Medicine 09/01/22 Ryan Rodrigues MD [facility] [place] [address] Infectious Diseases 12/06/19 Yadi White DO [address] [place] [address] Urology 04/28/20 Isac Lucas [address] [place], [place] [address] Referring Ophthalmology 06/27/22 Sales And Service Associate Relationship Specialty Start Date End Date Diana Salmeron MD [address] [facility] [address] [place], [place] [address] PCP - General Internal Medicine 09/01/22 Ryan Rodrigues MD [address] [place] [address] Infectious Diseases 12/06/19 Yadi White DO [address] [place], [place] [address] Urology 04/28/20 Isac Lucas [address] [place], [place] [address] Referring Ophthalmology 06/27/22 Team Status: Inactive Member [...] 2024 End: October 01, 2024 Christina Whipple COACH, COACH-C Attending Provider Active Start: October 01, 2024 [...] End: September 03, 2024 Christina Whipple NP, COACH-C Attending Provider Active Start: September 03, 2024 End: September 03, 2024 Team Status: Inactive Member Role/Relationship Status Dates Dr. Diana Salmeron MD Primary Care Provider Active Start: September 05, 2024 End: September 05, 2024 Christina Whipple COACH, COACH-C Attending Provider Active Start: September 05, 2024 [...] End: October 01, 2024 Christina Whipple NP, COACH-C Attending Provider Active Start: October 01, 2024 [...] End: September 24, 2024 Dr. Victor M Rojsa MD Attending Provider Active Start: September 24, 2024 End: September 24, 2024 Team Status: Inactive Member Role/Relationship Status Dates Dr. Diana Salmeron MD Primary Care Provider Active Start: October 01, 2024 End: October 01, 2024 TOM Malloy NPC Attending Provider Active Start: October 01, 2024 [...] Care Provider Active Start: November 20, 2024 iVctor M DAVID MD Attending Provider Active Start: [...] Attending Provider Active Start: December 18, 2024 Sales And Service Associate Relationship Specialty Start Date End Date Diana Salmeron MD [address] [place] [address] PCP - General Internal Medicine 09/01/22 Ryan Rodrigues MD [address] [place] [address] Infectious Diseases 12/06/19 Yadi White DO [address] [place] [address] Urology 04/28/20 Isac uLcas [address] [place] [address] Referring Ophthalmology 06/27/22 Care Team (unrecognized sect ion and content) Care Team Related Persons Name: ANGELIC SUE Care Team Personnel Name: DIANA SALMERON MD Med Service: Internal Medicine Member Role: Primary Care Physician Address: Address: [address] [place] [address] [address] [place], [place] [address] Care Team Related Persons Name: ANGELIC SUE [...] W/WO CONTRST 1+ BODY Nikolai Fisher PA-C [address] [place] [address] [address] [facility] [place] [address] Referral ID Status Reason Start Date Expiration Date V isits Requested Visits Authorized [id number] Closed Auto-Generate d Referral 06/25/2024 07/18/2025 1 [...] BE BASED ON THE PRIMARY CLINICAL RECORDS. [email or web address] provides no warranty or guarantee of the accuracy or completeness of information in this document.
[2025-01-28 07:23] LABS: Albumin, Serum 3.2 g/dL (3.4-4.8); Anion Gap 12 (5-15); BUN 27 mg/dL (4-19); BUN/Creat Ratio 15.7 RATIO (10-20); Calcium,Total 8.1 mg/dL (7.6-11.0); Carbon Dioxide 19.7 mmol/L (21.0-32.0); Chloride 106 mmol/L (98-108); Glucose 137 mg/dL (70-99); Potassium 4.1 mmol/L (3.3-5.1)
== END ==
LOC: OLS.WHLEAS 05:00
PROVIDERS: PCP Internal Medicine; Visit Provider Internal Medicine
DX: E11.22 Type 2 diabetes mellitus with diabetic chronic kidney disease (principal); N18.32 Chronic kidney disease, stage 3b; E11.40 Type 2 diabetes mellitus with diabetic neuropathy, unspecified; J96.11 Chronic respiratory failure with hypoxia; F03.90 Unspecified dementia, unspecified severity, without behavioral disturbance, psychotic disturbance, mood disturbance, and anxiety
CPT/HCPCS: 36415; 80069

== ENCOUNTER → 2025-02-04 04:00 | Outpatient (REF) | payer MEDICARE, MEDICAID, SELFPAY ==
--- OUTSIDE RECORDS SUMMARY | 2025-02-04 03:56 | XMS RPT_ITS | CCD ---
Author Organization [facility] CliniSymt Care Team Providers Care Sales Service Manager Name Role Phone Eric LATHAM, Papa Primary Care Provider [phone] ERIC, DEXTER-CHI Primary Care Unavailable HUMA MARIO Referring Unavailable MARIO FINN Attending Unavailable ERIC, DEXTER-CHI Primary Care Unavailable YUSUF COOPER Attending Unavailable ERIC, DEXTER-CHI Referring Unavailable ERIC, DEXTER-CHI Referring Unavailable ERIC, DEXTER-CHI Primary Care Unavailable MARIO FINN Attending Unavailable Eric, Dexter Chi Primary Care Provider [phone] Ryan Rodrigues MD Unavailable Yadi White DO Unavailable DR DIANA SALMERON MD Primary Care Physician ([facility] )[phone] Ryan Rodrigues MD Unavailable [phone] Yadi White DO Unavailable Isac Lucas Unavailable Diana Salmeron MD Primary Care Provider [phone]([facility])[phone] Dr. Dexter Reyes Chi Primary Care Provider Dr. Bren Lopes Admit Provider [phone] Bren Lopes Other Provider Dr. Dwayne Palumbo Other Provider Dr. Jesse Haywood Attending Provider [phone] Dr. Jesse Haywood Other Provider Dr. Dwayne Palumbo Attending Provider Friend, Dr. aSuceda Attending Provider [phone])[phone] Dr. Jesse Haywood Referring Provider Dr. Daniel Rodriguez Other Provider Unavaila ble Dr. Elias Bee Attending Provider Dr. Dwayne Palumbo Referring Provider Dr. Dexter Reyes Chi Referring Provider VALENTIN SOFIA DO Attending Unavailable VALENTIN SOFIA DO Primary Care Unavailable VALENTIN SOFIA DO Admitting Unavailable DR KENNY CHUA MD Attending Jerrod SALMERON MD, DR ORTIZ Primary Care Unavailable Diana Salmeron MD Primary Care Provider Faviola LATHAM, Dr. Ortiz Primary Care Provider Dr. Diana Salmeron MD Referring Provider Kacie Baer Attending Provider Victor M Rojas MD Attending Provider Unavaila silvano Whipple SEWER PIPE LAYER-CChristina Attending Provider Dr. Victor M Rojas MD Attending Provider Victor M Rojas MD Referring Provider Unavaila ble CONNORNIKOLAI SILVERIO Attending Unavailable LATOUF, BUTROS Primary Care Unavailable [...] Rojas MD Attending Provider Unavaila ble Sole LU-CChristina Attending Provider Dr. Jesse Angel DO Emergency Provider Dr. Diana Salmeron MD Primary Care Provider Victor M Rojas MD Attending Provider Unavaila ble Sole SEWER PIPE LAYER-C, Christina Attending Provider Jeanne PHAN, Dr. Molina Attending Provider Foster GARLAND, Lauren Bryan Attending Provider Sole SEWER PIPE LAYER-C, Christina Attending Provider Faviola LATHAM, Dr. Ortiz Primary Care Provider Victor M Rojas MD Attending Provider UnavailDr. Victor M Meneses MD Attending Provider Faviola LATHAM, Dr. Ortiz Primary Care Provider Victor M Rojas MD Attending Provider Unavaila silvano Whipple SEWER PIPE LAYER-C, Christina Attending Provider Faviola LATHAM, Dr. Ortiz Referring Provider GAYLA CLINE Attending Unavailable LATOUF, BUTROS Primary Care Unavailable ERIC MONTGOMERY I Attending Unavailable DIANA SALMERON MD Consulting Unavailable ERIC MONTGOMERY I Admitting Unavailable ERIC MONTGOMERY I Primary Care Unavailable PROVIDER, UNKNOWN Consulting Unavailable PROVIDER, UNKNOWN Consulting Unavailable PROVIDER, UNKNOWN Consulting Unavailable Faviola LATHAM, Dr. Ortiz Primary Care Provider Victor M Rojas MD Attending Provider Unavailteo Rojas MD, Dr. Dow Attending Provider Sole SEWER PIPE LAYER-C, Christina Attending Provider Oleghe OLS Efewongbe Attending Unavailabl e Latouf, [...] Attending Unavailable Latouf, Butros Primary Care Unavailable TickChristina Hansen Attending Unavailable Latouf, Butros Primary Care Unavailable [...] Unavailable Latouf, Butros Primary Care Unavailable Sole SEWER PIPE LAYERChristina Attending Unavailable Sole SEWER PIPE LAYERChristina Attending Unavailable Latouf, Butros Primary Care Unavailable Oleghe OLS, Efewongbe Attending Unavailabl e Latouf, Butros Primary Care Unavailable Oleghe OLS, Efewongbe Attending Unavailabl e Oleghe OLS, Efewongbe Referring Unavailabl e Latouf, Butros Primary Care Unavailable Oleghe, Efewongbe Attending Unavailable Latouf, Butros Primary Care Unavailable Latouf, Butros Primary Care Unavailable Oleghe OLS, Efewongbe Attending Unavailabl e Sohail Owen Attending Unavailable Latouf, Butros Primary Care Unavailable Latouf, Butros Referring Unavailable Latouf, Butros Primary Care Unavailable Latouf, Butros Referring Unavailable Kacie Simon Attending Unavailable Latouf, Butros Primary Care Unavailable Sole SEWER PIPE LAYERChristina Attending Unavailable Oleghe, Efewongbe Attending Unavailable Latouf, Butros Primary Care Unavailable Sole SEWER PIPE LAYER Christina Attending Unavailable Latouf, Butros Primary Care Unavailable Oleghe, Efewongbe Attending Unavailable Latouf, Butros Primary Care Unavailable Sole SEWER PIPE LAYERChristina Attending Unavailable Latouf, Butros Primary Care Unavailable Latouf, Butros Referring Unavailable Nasim Caballero Attending Unavailable Latouf, Butros Primary Care Unavailable Sole LU, Christina Attending Unavailable Latouf, Butros Primary Care Unavailable Victor M Rojas Attending Unavailable Latouf, Butros Primary Care Unavailable Latouf, Butros Referring Unavailable Kacie Simon Attending Unavailable Latouf, Butros Primary Care Unavailable Christina Whipple NP Attending Unavailable Latouf, Butros Primary Care Unavailable Sole SEWER PIPE LAYER, Christina Attending Unavailable Latouf, Butros Primary Care Unavailable Latouf, Butros Referring Unavailable Lauren Carlson Attending Unavail able Latouf, Butros Primary Care Unavailable Latouf, Butros Primary Care Unavailable Victor M Rojas Attending Unavailable Medications Current Medications Medication Drug Class(es) [...] by mouth. 06/03/2020 Active Start: 09-11-2019 End: 09-15-2022 take 1-10 tablets by mouth every eight [...] mouth . albuterol 0.83 mg/ml inhalation solution (6 sources) beta2-Adrenergic Agonist Start: 025 take 2.5 mg by inhalation twice daily as needed Albuterol Sulfate 2.5 mg /3 mL (0.083 %) solution for nebulization Active 2.5 mg INHALATION TWICE A DAY as needed October 16, 2024 12:00am ALPRAZolam 0.25 mg disintegrating oral tablet (1 source) Benzodiazepine Start: 021 ALPRAZolam (NIRAVAM) dissolvable tablet 0.25 mg amiodarone hydrochloride 200 mg oral tablet (20 sources) Antiarrhythmic Start: 025 take 1 tablet by mouth once daily Amiodarone 200 mg tablet Active 200 mg PO daily October 16, 2024 12:00am Start: 06-04-2020 End: 03-04-2024 take 1 tablet by mouth once daily Amiodarone 200 mg tablet Discontinued 200 mg PO DAILY September 01, 2021 12:00am March 04, 2024 11:25am Comment on above: 200 mg once daily. amLODIPine 2.5 mg oral tablet (15 sources) Dihydropyridine Calcium Channel Nicole Start: take 2.5 mg by mouth once daily [...] tablet Aspirin Aspirin E.C. Active 81 MG DAILY@799October 12, 2019 7:37am 10-12-2019 [facility] ([id number]) 0 10/12/2019 Active Comment on above: Aspirin Aspirin E.C. Active 81 MG DAILY@0800 October 12, 2019 7:37am 10-12-2019 [facility] ([id number]) Take 81 mg by mouth. atorvastatin 40 mg oral tablet (20 sources) HMG-CoA Reductase Inhibitor Start: 2 take 1 tablet by mouth once daily Atorvastatin 40 mg tablet Active 40 mg PO DAILY March 03, 2022 12:00am Start: 09-01-2021 End: 03-03-2022 take 1 tablet by mouth at bedtime Atorvastatin 20 mg tablet Discontinued 20 mg PO AT BEDTIME September 01, 2021 12:00am March 03, 2022 11:38am Start: 08-19-2019 End: 09-01-2021 take 1 tablet by mouth at bedtime Atorvastatin 40 MG tablet Discontinued 40 mg PO AT BEDTIME September 11, 2019 12:00am September 01, 2021 2:18pm CHOLESTEROL Start: 08-19-2019 atorvastatin ( LIPITOR) 40 mg tablet Take 20 mg by mouth once daily. 08/19/2019 Active Comment on above: Take 40 mg by [...] tablet 1 tab po BID Cholestyramine Resin (9 sources) Bile Acid Sequestrant Start: 4 take 1 dose by mouth once daily [...] 1hr before or 4-6hr after dose colestipol hydrochloride 1000 mg oral tablet (18 sources) Bile Acid Sequestrant Start: 06-06-2024 End: 06-06-2024 Colestipol 1 gram tablet Active 2 g PO daily 60 2 June 06, 2024 4:54pm 1 ml diphenhydrAMINE hydrochloride 50 mg/ml cartridge (1 source) Histamine-1 Receptor Antagonist Start: 02-09-2021 End: 02-09-2021 diphenhydrAMINE (BENADRYL) injection 12.5 mg empagliflozin 25 mg oral tablet (20 sources) Sodium-Glucose Cotransporter 2 Inhibitor Start: 10-16-2024 take 1 tablet by [...] Start Date: 07/12/21 Status: Ordered Start: 08-19-2019 End: 09-01-2021 take 1 tablet by mouth once daily Levothyroxine 25 MCG tablet Discontinued 25 ug PO DAILY September 11, 2019 12:00am September 01, 2021 8:29am thyroid Start: 08-19-2019 take 2 tablets by mo [facility] once daily levothyroxine (SYNTHROID) 25 mcg tablet Take 50 mcg by mouth once daily. 08/19/2019 Active take 1 tablet by brayan once daily [...] DAILY December 14, 2022 12:00am Multivitamin tablet (9 sources) Start: 12-15-19 Multivitamin tablet Active 1 {tbl} PO DAILY December 14, 2022 12:00am mupirocin 0.02 mg/mg topical ointment (8 sources) RNA Synthetase Inhibitor Antibacterial Start: 01-15-20 mupirocin (BACTROBAN) 2 % ointment 01/14/2023 Active nystatin 713950 unt/ml topical cream (9 sources) Polyene Antifungal Start: 03-04-20 Nystatin 100,000 unit/gram cream Active 1 NMA TOPICAL daily March 04, 2024 12:00am ondansetron 4 mg oral tablet (19 sources) Serotonin-3 Receptor Antagonist Start: 05-30-20 take [...] (Z OFRAN-ODT) disintegrating tablet 4 mg oxyCODONE (12 sources) Opioid Agonist Start: 02-09-2021 End: 02-09-2021 oxyCODONE (ROXICODONE) immediate release tablet 5 mg Start: 09-11-2019 End: 10-12-2019 take 1 tablet by mouth every six hours as needed for pain Oxycodone 5 MG tablet Discontinued 5 mg PO EVERY 6 HOURS NEEDED as needed for pain September 11, 2019 12:00am October 12, 2019 7:45am polyethylene glycol 3350 31008 mg powder for oral solution (20 sources) [...] 25 mg/ml injection (1 source) Phenothiazine Start: 02-09-2021 End: 02-09-2021 promethazine (PHENERGAN) injection 6.25 mg sacubitril 24 mg / valsartan 26 mg oral tablet (20 sources) Angiotensin 2 Receptor Nicole Start: 01-11-2023 Sacubitril-Valsartan (Entresto) 24-26 mg tablet Active 1 {tbl} PO TWICE A DAY January 11, 2023 12:00am Start: 04-12-2022 End: 07-08-2022 Sacubitril-Valsartan (Entres to) 24-26 mg tablet Discontinued 1 {tbl} PO TWICE A DAY May 16, 2022 1:00am July 08, 2022 5:41pm Comment on above: Entresto 24 mg-26 mg tablet 1 tab po BID 1000 ml sodium chloride 9 mg/ml injection (9 sources) Start: 10-05-19 End: 10-05-19 inject 1 dose intravenously once 0.9 % [...] pen injector 3 mg. 01/13/2025 Active vit C,X-Fp-siwpm-lutein-zeax an (PRESERVISION AREDS-2) 250-90-40-1 mg (12 sources) Start: 12-09-2020 vit C,E-Zn-copywriter mn-beubxm-fnsdxu (PRESERVISION AREDS-2) 250-90-40-1 mg Take 1 Each by mouth. 12/09/2020 Active Start: 12-09-2020 vit C,E-Zn-copywriter as-dgngxp-znahin (PRESERVISION AREDS-2) 250-90-40-1 mg Take 1 Each by mouth. 0 12/09/2020 Active Comment on above: Take 1 Each by mouth . Completed/Discontinued Medications Medication Drug Class(es) Dates Sig (Normalized) Sig (Original) acetaminophen 325 mg / HYDROcodone bitartrate 5 mg oral tablet (11 sources) Opioid Agonist Start: 11-27-2019 End: 12-02-2019 [...] 1 {tbl} PO TWICE A DAY 8 0 December 17, 2022 12:00am December 20, 2022 [...] TWICE A DAY 07 04November 27, 2019 12:00am December 07, 2019 12:02am ascorbic acid 113 mg [...] Stop Date: 01/26/22 Status: Ordered Aspir 81 (11 sources) Start: 09-11-2019 End: 10-12-2019 Aspir 81 [...] Drop (FLURESS) cholecalciferol 0.025 mg oral capsule (12 sources) Vitamin D Start: 05-18-2020 End: 03-04-2024 Cholecalciferol (Vitamin D3) 25 MCG capsule Discontinued 1000 U PO DAILY May 18, 2020 1:00am March 04, 2024 11:25am SUPPLEMENT Start: 05-18-2020 take 1000 [IU] by mo [facility] once daily Cholecalciferol (Vitamin D3) Active 1000 UNIT PO DAILY May 18, 2020 1:00am Cholecalciferol, Vitamin D3, (VITAMIN D) 25 mcg (1,000 unit) cap Take 1,000 Units by mouth once daily. 0 Active Comment on above: Take 1,000 Units by mouth once daily. citalopram 10 mg oral tablet (20 sources) Serotonin Reuptake Inhibitor Start: 03-30-2020 End: 03-04-2024 take 1 tablet by mouth once daily Citalopram 10 MG tablet Discontinued 10 mg PO DAILY May 18, 2020 1:00am March 04, 2024 11:25am DEPRESSION take 10 mg by mouth once daily c italopram (CELEXA) 20 MG tablet Take 10 mg by mouth daily 0 Suspended Comment on above: Take 10 mg by mouth once daily. collagenase 0.25 unt/mg topical ointment (12 sources) Collagen-specific Enzyme Start: 0 End: 2 Collagenase Clostridium Histo. 1 APPLIC ointment Discontinued 1 NMA TP DAILY May 18, 2020 1:00am September 01, 2021 8:30am WOUND Comment on above: apply SULLY CRUZ TO ULCER DAILY docusate sodium 50 mg / sennosides, snf 8.6 mg oral tablet (1 source) take [...] 0 Suspended furosemide 40 mg oral tablet (12 sources) Loop Diuretic Start: 2 End: 2 [...] 600 MG tablet Discontinued 600 mg PO DAILY@1999 0 October 12, 2019 12:00am May 18, 2020 5:08pm Start: 09-11-2019 End: 10-12-2019 Gabapentin 100 MG capsule Discontinued 1 NMA PO EVERY 8 HOURS September 11, 2019 12:00am October 12, 2019 7:40am nerve pain take 1 capsule by [facility] once daily for pain gabapentin (NEURONTIN) 100 MG capsule Take 100 mg by mouth daily. For phantom limb pain. 0 Suspended Comment on above: Take 600 mg by mouth twice daily. glimepiride 4 mg oral tablet (11 sources) Sulfonylurea Start: 0 End: 0 take [...] daily. ketorolac tromethamine 5 mg/ml ophthalmic solution (18 sources) Nonsteroidal Anti-inflammatory Drug, Cyclooxygenase Inhibitor Start: [...] take 1 tablet by mouth at bedtime Lisinopril 10 MG tablet Discontinued 10 mg PO AT BEDTIME September 11, 2019 12:00am March 03, 2022 11:39am BP Comment on above: Take 10 mg by [...] (20 sources) Biguanide Start: 03-03-20 End: 12-15-19 23 take 1 tablet by mouth twice daily [...] Comment on above: Take 1,000 mg by brayan twice daily. miconazole nitrate 0.02 mg/mg topical powder (9 sources) Azole Antifungal Start: 3 End: 4 [...] omeprazole 40 mg delayed release oral capsule (12 sources) Proton Pump Inhibitor Start: 2 End: 3 take 1 capsule by mouth once daily Omeprazole 40 mg capsule,delayed release(DR/EC) Discontinued 40 mg PO DAILY March 03, 2022 12:00am January 11, 2023 1:06pm take 2 capsules by mouth once da neo omeprazole (PRILOSEC) 20 MG delayed release capsule Take 40 mg by mouth daily 0 Suspended pantoprazole 40 mg delayed release oral tablet (19 sources) Proton Pump Inhibitor Start: 01-11-2023 End: 03-04-2024 take 1 tablet by mouth once daily Pantoprazole 40 mg tablet,delayed release (DR/EC) Discontinued 40 mg PO DAILY January 11, 2023 12:00am March 04, 2024 11:25am phenylephrine hydrochloride 25 mg/ml ophthalmic solution (2 sources) alpha-1 Adrenergic Agonist Start: 09-01-2022 End: 09-02-2022 PHENYLephrine 2.5 % 1 Drop (AK-DILATE, DARRION-SYNEPHRINE) Start: 02-09-2021 End: 02-09-2021 phenylephrine (MYDFRIN) 2.5 % ophthalmic solution 1 drop pioglitazone 30 mg oral tablet (11 sources) Peroxisome Proliferator Receptor alpha Agonist, Peroxisome [...] Status: Ordered take 1 tablet by brayan th once daily predniSONE (DELTASONE) 1 mg tablet [...] drop traMADol hydrochloride 50 mg oral tablet (8 sources) Opioid Agonist Start: 5 End: 5 [...] te Episodic/Chronic Acute and unspecified renal failure (13 sources) Acute renal failure syndrome; Translations: [Acute kidney failure, unspecified] Onset: 12-31-2021 Episodic Acute myocardial infarction (5 sources) Non-ST elevation (NSTEMI) myocardial infarction; Translations: [Myocardial infarction] Onset: 12-31-2021 Chronic Acute posthemorrhagic anemia (13 sources) Acute posthemorrhagic anemia; Translations: [Acute posthemorrhagic anemia] Onset: 01-05-2022 Episodic Allergic reactions (1 source) Photosensitivity; Translations: [Other specified acute skin changes due to ultraviolet radiation] Episodic Biliary tract disease (20 sources) Common bile duct calculus; Translations: [Calculus of bile duct without cholangitis or cholecystitis without obstruction] 12-25-2022 Episodic Blindness and vision defects (12 sources) Eye / vision finding; Translations: [Unspecified [...] 03-25-2024 Chronic obstructive pulmonary disease and bronchiectasis (11 sources) Chronic obstructive lung disease; Translations: [Chronic [...] Coronary atherosclerosis; Translations: [Atherosclerotic heart disease of [place] coronary artery without angina pectoris] Onset: 12-31-2021 [...] 08-21-2019 Chronic Disorders of teeth and jaw (11 sources) Edentulous; Translations: [Complete loss of teeth, unspecified cause, unspecified class] 09-01-2021 Chronic E Codes: Fall (7 sources) Fall; Translations: [Unspecified fall, initial encounter] 10-15-2024 Episodic Essential hypertension (20 sources) Hypertensive disorder; Translations: [Essential (primary) hypertension] Onset: 08-21-2019 08-21-2019 Chronic Fluid and electrolyte disorders (20 sources) Hyperosmolality with hypernatremia; Translations: [Hyperosmolality and hypernatremia] Episodic Hypertension with complications and secondary hypertension (1 source) Chronic kidney disease due to hypertension; Translations: [Hypertensive chronic kidney disease with stage 1 through stage 4 chronic kidney disease, or unspecified chronic kidney disease] Chronic Immunizations and screening for infectious disease (11 sources) Infectious disease carrier; Translations: [Carrier of infectious disease, unspecified] 09-01-2021 Episodic Mood disorders (5 sources) Mood disorder; Translations: [Unspecified mood [affective] disorder] Onset: 12-31-2021 Chronic Mycoses (11 sources) Onychomycosis due to dermatophyte ; Translations: [...] Long-term current use of systemic steroid; Translations: [snf (current) use of systemic steroids] Episodic Other aftercare (5 sources) Drug therapy finding; Translations: [Other jail (current) drug therapy] 12-25-2022 Episodic Other aftercare (6 sources) Long-term current use of amiodarone; Translations: [Other jail (current) drug therapy] 05-16-2022 Episodic Other bone disease and musculoskeletal deformities (1 source) Amputated left lower limb below knee; Translations: [Acquired absence of left leg below knee] Chronic Other bone disease and musculoskeletal deformities (11 sources) History of amputation of right leg through tibia and fibula; Translations: [Acquired absence of right leg below knee] Onset: 05-19-2021 09-01-2021 Chronic Other connective tissue disease (11 sources) Pain in right lower limb; Translations: [...] Onset: 12-09-2020 12-09-2020 Episodic Other gastrointestinal disorders (11 sources) Patient encounter status; Translations: [Encounter for [...] digestive tract] 01-11-2023 Chronic Other gastrointestinal disorders (17 sources) Incontinence of feces; Translations: [Full incontinence of feces] 03-04-2024 Episodic Other injuries and conditions due to external causes (7 sources) Abrasion and/or friction burn of multiple sites; Translations: [Unspecified multiple injuries, initial encounter] 10-15-2024 Episodic Other nervous system disorders (1 source) 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; Translations: [Personal history of other diseases of the nervous system and sense organs] Onset: 12-31-2021 Episodic Other nervous system disorders (3 sources) H/O: Singh's palsy 12-31-2021 Episodic Other nutritional; endocrine; and metabolic disorders (12 sources) Hypomagnesemia; Translations: [Hypomagnesemia] Chronic Comment on above: Due to increased exc retion of magnesium in the urine Other nutritional; endocrine; and metabolic disorders (1 source) Obese class II; Translations: [Body mass index (BMI) 37.0-37.9, adult] Chronic Other nutritional; endocrine; and metabolic disorders (11 sources) Obesity; Translations: [Obesity, unspecified] 12-25-2022 Chronic [...] unspecified] Onset: 01-13-2022 Episodic Residual codes; unclassified (17 sources) Past history of procedure; Translations: [Other specified postprocedural states] 09-04-2023 Episodic Comment on above: 6.29.[address]ment; 12.19.23 with stent removal Respiratory failure; insufficiency; arrest [...] nicotine dependence] Episodic Septicemia (except in labor) (11 sources) Sepsis; Translations: [Sepsis, unspecified organism] 05-20-2020 Episodic Skin and subcutaneous tissue infections (20 sources) Cellulitis of lower limb; Translations: [Cellulitis of right lower limb] 09-01-2021 Episodic Comment on above: Right groin incision -resolved Substance-related disorders (11 sources) Tobacco dependence in remission; Translations: [Nicotine dependence, unspecified, in remission] 09-01-2021 Chronic Comment on above: quit in Superficial injury; contusion (18 sources) Blister of toe without infection; Translations: [Blister (nonthermal), left lesser toe(s), initial encounter] 09-01-2021 Episodic Comment on above: left dorsal fifth to e Systemic lupus erythematosus and connective tissue disorders (17 sources) Temporal arteritis; Translations: [Other giant cell arteritis] Onset: 12-31-2021 Chronic Thyroid disorders (20 sources) Hypothyroidism; Translations: [Hypothyroidism, unspecified] Onset: 08-21-2019 08-21-2019 Chronic Past or Other Problems Problem Classification Problem Date Documented Date Episodic/Chronic Complications of surgical procedures or medical care (14 sources) Non-healing surgical wound; Translations: [Other complications of procedures, not elsewhere classified, initial encounter] Onset: 12-09-2019 12-09-2019 Episodic Gangrene (14 sources) Gangrene of foot; Translations: [Gangrene, not elsewhere classified] Onset: 08-21-2019 08-21-2019 Episodic Genitourinary symptoms and ill-defined conditions (11 sources) Proteinuria; Translations: [Proteinuria, unspecified] Onset: 06-18-2024 Episodic Other injuries and conditions due to external causes (1 source) Encounter for examination and observation following other accident; Translations: [Encounter for examination and observation following other accident] Onset: 10-21-2024 Episodic Residual codes; unclassified (11 sources) History of cardiovascular surgery; Translations: [Other specified postprocedural states] Onset: 08-18-2019 09-01-2021 Episodic Comment on above: R femoral on 09/02/19 Residual codes; unclassified (1 source) Other specified postprocedural states; Translations: [Other specified postprocedural states] Onset: 06-06-2024 Episodic Unclassified (11 sources) Blister (nonthermal), left foot, initial encounter 09-01-2021 Comment on above: dorsal hindfoot, lef t Results Test Name Value Interpretation Reference Range Facility Anion gap in Serum or Plasma Ordered By: Victor M Rojas on 01-28-2025 Anion gap [Moles/Vol] 12 mmol/L - [facility] BUN/creatinine ratioOrdered By: Victor M Rojas on 01-28-2025 Urea nitrogen/Creatinine [Mass ratio] 15.7 mg/mg - [facility] Carbon dioxide, total [Moles /volume] in Central venous bloodOrdered By: Victor M Rojas on 01-28-2025 CO2 [Moles/Vol] 19.7 mmol/L Low 21.0-32.0 [facility] Chloride assayOrdered By: Stefan Rojas on 01-28-2025 Chloride [Moles/Vol] 106 mmol/L 98-108 [facility] Glomerular filtration rate ( GFR) estimation/1.73 sq m using serum, plasma, or whole bOrdered By: Victor M Rojas on 01-28-2025 GFR/1.73 sq M.predicted among non-blacks MDRD (S/P/Bld) [Vol rate/Area] 38 mL/min/{1.73_m2} Low >60 [facility] Comment on above: mL/min/1.73m2 CKD-EP I Creatinine Equation (2020) Potassium measurement (mass/ volume)Ordered By: Victor M Rojas on 01-28-2025 Potassium (Unsp spec) [Mass/Vol] 4.1 mmol/L 3.3-5.1 [facility] Serum creatinine measurement (mass/volume)Ordered By: Victor M Rojas on 01-28-2025 Creatinine [Mass/Vol] 1.74 mg/dL High 0.70-1.20 [facility] Serum glucose measurement (m ass/volume)Ordered By: Victor M Rojas on 01-28-2025 Glucose [Mass/Vol] 137 mg/dL High 70-99 [facility] Serum or plasma albumin akash urement (mass/volume)Ordered By: Victor M Rojas on 01-28-2025 Albumin [Mass/Vol] 3.2 g/dL Low 3.4-4.8 [facility] Serum or plasma calcium akash urement (mass/volume)Ordered By: Victor M Rojas on 01-28-2025 Calcium [Mass/Vol] 8.1 mg/dL 7.6-11.0 [facility] Serum or plasma urea nitroge n measurement (mass/volume)Ordered By: Victor M Rojas on 01-28-2025 Urea nitrogen [Mass/Vol] 27 mg/dL High 4-19 [facility] Sodium levelOrdered By: Brandon Rojas on 01-28-2025 Sodium [Moles/Vol] 138 mmol/L 133-145 [facility] Anion gap in Serum or Plasma Ordered By: Victor M Rojas on 01-22-2025 Anion gap [Moles/Vol] 15 mmol/L 5-15 [facility] BUN/creatinine ratioOrdered By: Victor M Rojas on 01-22-2025 Urea nitrogen/Creatinine [Mass ratio] 24.3 mg/mg High 10-20 [facility] Carbon dioxide, total [Moles /volume] in Central venous bloodOrdered By: Victor M Rojas on 01-22-2025 CO2 [Moles/Vol] 18.3 mmol/L Low 21.0-32.0 [facility] Chloride assayOrdered By: Stefan Rojas on 01-22-2025 Chloride [Moles/Vol] 103 mmol/L 98-108 [facility] Glomerular filtration rate ( GFR) estimation/1.73 sq m using serum, plasma, or whole bOrdered By: Victor M Rojas on 01-22-2025 GFR/1.73 sq M.predicted among non-blacks MDRD (S/P/Bld) [Vol rate/Area] 33 mL/min/{1.73_m2} Low >60 [facility] Comment on above: mL/min/1.73m2 CKD-EP I Creatinine Equation (2020) Potassium measurement (mass/ volume)Ordered By: Victor M Rojas on 01-22-2025 Potassium (Unsp spec) [Mass/Vol] 3.9 mmol/L 3.3-5.1 [facility] Serum creatinine measurement (mass/volume)Ordered By: Victor M Rojas on 01-22-2025 Creatinine [Mass/Vol] 1.96 mg/dL High 0.70-1.20 [facility] Serum glucose measurement (m ass/volume)Ordered By: Victor M Rojas on 01-22-2025 Glucose [Mass/Vol] 83 mg/dL 70-99 [facility] Serum or plasma albumin akash urement (mass/volume)Ordered By: Victor M Rojas on 01-22-2025 Albumin [Mass/Vol] 3.3 g/dL Low 3.4-4.8 [facility] Serum or plasma calcium akash urement (mass/volume)Ordered By: Victor M Rojas on 01-22-2025 Calcium [Mass/Vol] 8.2 mg/dL 7.6-11.0 [facility] Serum or plasma urea nitroge n measurement (mass/volume)Ordered By: Stefanvianeyleonaprice Granadosluissammi on 01-22-2025 Urea nitrogen [Mass/Vol] 48 mg/dL High 4-19 [facility] Sodium levelOrdered By: Brandon wynn Darwinluissammi on 01-22-2025 Sodium [Moles/Vol] 136 mmol/L 133-145 [facility] Absolute lymphocyte countOrd ered By: Brandontianna Darwinluissammi on 01-20-2025 Lymphocytes Auto (Unsp spec) [#/Vol] 1.51 10*3/uL 0.83-4.51 [facility] Absolute neutrophil countOrd ered By: Stefanvianeytianna Darwinluissammi on 01-20-2025 Neutrophils (Bld) [#/Vol] 6.1 10*3/uL 2.0-7.7 [facility] Anion gap in Serum or Plasma Ordered By: Brandonleonaprice Granadosluissammi on 01-20-2025 Anion gap [Moles/Vol] 16 mmol/L High 5-15 [facility] Automated lymphocyte count a s percentage of total leukocytesOrdered By: Stefanvianeytianna Darwinluissammi on 01-20-2025 Lymphocytes/100 WBC Auto (Unsp spec) 16.5 % Low 19-41 [facility] BUN/creatinine ratioOrdered By: Brandonleonaprice Granadosluissammi on 01-20-2025 Urea nitrogen/Creatinine [Mass ratio] 16.1 mg/mg 10-20 [facility] Basophil percentageOrdered B y: Victor M Darwinkelly on 01-20-2025 Basophils/100 WBC (Bld) 0.3 % 0-1 [facility] Carbon dioxide, total [Moles /volume] in Central venous bloodOrdered By: Stefanvianeyleonaprice Granadosluissammi on 01-20-2025 CO2 [Moles/Vol] 19.5 mmol/L Low 21.0-32.0 [facility] Chloride assayOrdered By: Stefan meganprice Granadosluissammi on 01-20-2025 Chloride [Moles/Vol] 103 mmol/L 98-108 [facility] Eosinophil percentageOrdered By: Victor M Rojas on 01-20-2025 Eosinophils/100 WBC (Bld) 1.2 % 0-5 [facility] Erythrocyte distribution wid th ratioOrdered By: Victor M Rojas on 01-20-2025 Erythrocyte distribution width (RBC) [Ratio] 14.9 % High 11.6-14.6 [facility] Erythrocyte distribution wid th standard deviationOrdered By: Victor M Rojas on 01-20-2025 Erythrocyte distribution width (RBC) [Ratio] 47.9 fl High 35.1-43.9 [facility] Glomerular filtration rate ( GFR) estimation/1.73 sq m using serum, plasma, or whole bOrdered By: Brandonrentonprice Rojas on 01-20-2025 GFR/1.73 sq M.predicted among non-blacks MDRD (S/P/Bld) [Vol rate/Area] 29 mL/min/{1.73_m2} Low >60 [facility] Comment on above: mL/min/1.73m2 CKD-EP I Creatinine Equation (2020) Hematocrit Auto (Bld) [Volum e fraction]Ordered By: [facility] Ro[facility] on 01-20-2025 Hematocrit (Bld) [Volume fraction] 42.5 % 40-54 [facility] Hemoglobin measurementOrdere d By: Victor M Rojas on 01-20-2025 Hemoglobin (Bld) [Mass/Vol] 14.0 g/dL 13.0-16.5 [facility] Immature granulocytes/100 WB C Auto (Bld)Ordered By: Victor M Rojas on 01-20-2025 Immature granulocytes/100 WBC (Bld) 2.100 % High 0.0-0.9 [facility] Comment on above: IG% - Immature Granu locytes (promyelocytes, myelocytes and metamyelocytes) > 1% indicates that a LEFT SHIFT is Present. MCV (mean corpuscular volume ) determinationOrdered By: Victor M Rojas on 01-20-2025 MCV (RBC) [Entitic vol] 88.4 fL 80-94 [facility] Mean corpuscular hemoglobin (MCH) determinationOrdered By: Vicotr M Rojas on 01-20-2025 MCH (RBC) [Entitic mass] 29.1 pg 27.0-32.0 [facility] Mean corpuscular hemoglobin concentration (MCHC) determinationOrdered By: Milyprice Granadosluissammi on 01-20-2025 MCHC (RBC) [Mass/Vol] 32.9 g/dL 32-36 [facility] Mean platelet volume determi nationOrdered By: Stefanvianeyleonaprice Granadosluissammi on 01-20-2025 Platelet mean volume (Bld) [Entitic vol] 11.6 fL 6.2-12.0 [facility] Monocyte percentageOrdered B y: Milyprice Granadosluissammi on 01-20-2025 Monocytes/100 WBC (Bld) 13.4 % High 0-10 [facility] Neutrophil percentageOrdered By: Stefanradha Granadosluissammi on 01-20-2025 Neutrophils/100 WBC (Bld) 66.5 % 47-70 [facility] Nucleated red blood cell per centageOrdered By: Stefanvianeyleonaprice Granadosluissammi on 01-20-2025 Nucleated RBC/100 WBC (Bld) [Ratio] 0 % 0-5 [facility] Platelet countOrdered By: Stefan radha Darwinluissammi on 01-20-2025 Platelets (Bld) [#/Vol] 218 10*3/uL 150-450 [facility] Potassium measurement (mass/ volume)Ordered By: Victor M Rojas on 01-20-2025 Potassium (Unsp spec) [Mass/Vol] 4.0 mmol/L 3.3-5.1 [facility] RBC Auto (Bld) [#/Vol]Ordere d By: Stefanvianeyleonaprice Granadosluissammi on 01-20-2025 RBC (Bld) [#/Vol] 4.81 10*6/uL 4.6-6.2 [facility] Serum creatinine measurement (mass/volume)Ordered By: Stefanradha Rojas on 01-20-2025 Creatinine [Mass/Vol] 2.19 mg/dL High 0.70-1.20 [facility] Serum glucose measurement (m ass/volume)Ordered By: Victor M Rojas on 01-20-2025 Glucose [Mass/Vol] 211 mg/dL High 70-99 [facility] Serum or plasma albumin akash urement (mass/volume)Ordered By: Victor M Rojas on 01-20-2025 Albumin [Mass/Vol] 3.3 g/dL Low 3.4-4.8 [facility] Serum or plasma calcium akash urement (mass/volume)Ordered By: Victor M Rojas on 01-20-2025 Calcium [Mass/Vol] 8.4 mg/dL 7.6-11.0 [facility] Serum or plasma urea nitroge n measurement (mass/volume)Ordered By: Victor M Rojas on 01-20-2025 Urea nitrogen [Mass/Vol] 35 mg/dL High 4-19 [facility] Sodium levelOrdered By: Brandon Rojas on 01-20-2025 Sodium [Moles/Vol] 139 mmol/L 133-145 [facility] White blood cell (WBC) count Ordered By: Victor M Rojas on 01-20-2025 WBC (Bld) [#/Vol] 9.2 10*3/uL 4.4-11.0 [facility] CNOVon 01-14-2025 CNOV Office Visit (URCANT ) ELIZABETH MODI ([id number]) 1940 M T Date Time Provider Department 01/14/25 9:15 AM GAYLA CLINE URCANT During your visit today, we recorded the following information about you: Gayla Cline MD 01/14/2025 10:48 AM Signed CYSTOSCOPY PROCEDURE NOTE : Elizabeth Modi is a 84 year old male who is here for cystoscopy PRE-OP/PRE-PROCEDURE DIAGNOSIS: h/o gross henaturia POST-OP/POST-PROCEDURE DIAGNOSIS: same SURGERY/PROCEDURE(S): Cystoscopy Pt ID verified with patient: Yes Procedure verified with patient: Yes Procedure confirmed with physician and customer support analyst: Yes UNIVERSAL PROTOCOL / SAFETY CHECKLIST Procedure [...] provided wit (more content not included)... Normal [facility] Anion gap in Serum or Plasma Ordered By: Victor M Rojas on 12-18-2024 Anion gap [Moles/Vol] 14 mmol/L 5-15 [facility] BUN/creatinine ratioOrdered By: Victor M Rojas on 12-18-2024 Urea nitrogen/Creatinine [Mass ratio] 18.6 mg/mg 10-20 [facility] Bilirubin, totalOrdered By: Victor M Rojas on 12-18-2024 Bilirubin [Mass/Vol] 0.79 mg/dL 0.00-1.30 [facility] Calculated very low density lipoprotein (VLDL) cholesterol measurementOrdered By: Victor M Rojas on 12-18-2024 Calculated very low density lipoprotein (VLDL) cholesterol measurement 25 mg/dL 5-40 [facility] Carbon dioxide, total [Moles /volume] in Central venous bloodOrdered By: Victor M Rojas on 12-18-2024 CO2 [Moles/Vol] 19.2 mmol/L Low 21.0-32.0 [facility] Chloride assayOrdered By: Stefan Rojas on 12-18-2024 Chloride [Moles/Vol] 105 mmol/L 98-108 [facility] Erythrocyte distribution wid th ratioOrdered By: Victor M Rojas on 12-18-2024 Erythrocyte distribution width (RBC) [Ratio] 14.9 % High 11.6-14.6 [facility] Erythrocyte distribution wid th standard deviationOrdered By: Victor M Rojas on 12-18-2024 Erythrocyte distribution width (RBC) [Ratio] 48.5 fl High 35.1-43.9 [facility] Glomerular filtration rate ( GFR) estimation/1.73 sq m using serum, plasma, or whole bOrdered By: Victor M Rojas on 12-18-2024 GFR/1.73 sq M.predicted among non-blacks MDRD (S/P/Bld) [Vol rate/Area] 38 mL/min/{1.73_m2} Low >60 [facility] Comment on above: mL/min/1.73m2 CKD-EP I Creatinine Equation (2020) Hematocrit Auto (Bld) [Volum e fraction]Ordered By: Victor M Rojas on 12-18-2024 Hematocrit (Bld) [Volume fraction] 44.3 % 40-54 [facility] Hemoglobin A1c percentageOrd ered By: Victor M Rojas on 12-18-2024 HbA1c (Bld) [Mass fraction] 8.8 % High <5.7 [facility] Comment on above: Normal < 5.7 % Predi abetic 5.7 - 6.4 % Diabetic >or= 6.5 % Please note range changes. Hemoglobin measurementOrdere d By: Victor M Rojas on 12-18-2024 Hemoglobin (Bld) [Mass/Vol] 14.1 g/dL 13.0-16.5 [facility] LDL calc ser/plasOrdered By: Victor M Rojas on 12-18-2024 Cholesterol in LDL [Mass/Vol] 48 mg/dL [facility] Comment on above: Emqncjcbzu=231-956 m g/dL & Higher Uwqv=632 mg/dL or greater Laboratory - Chemistry and C hemistry - challengeOrdered By: Victor M Rojas on 12-18-2024 AST [Catalytic activity/Vol] 27 U/L <38 [facility] MCV (mean corpuscular volume ) determinationOrdered By: Victor M Rojas on 12-18-2024 MCV (RBC) [Entitic vol] 89.1 fL 80-94 [facility] Mean corpuscular hemoglobin (MCH) determinationOrdered By: Victor M Rojas on 12-18-2024 MCH (RBC) [Entitic mass] 28.4 pg 27.0-32.0 [facility] Mean corpuscular hemoglobin concentration (MCHC) determinationOrdered By: Victor M Rojas on 12-18-2024 MCHC (RBC) [Mass/Vol] 31.8 g/dL Low 32-36 [facility] Mean platelet volume determi nationOrdered By: Victor M Rojas on 12-18-2024 Platelet mean volume (Bld) [Entitic vol] 11.5 fL 6.2-12.0 [facility] Platelet countOrdered By: Stefan Rojas on 12-18-2024 Platelets (Bld) [#/Vol] 218 10*3/uL 150-450 [facility] Potassium measurement (mass/ volume)Ordered By: Victor M Rojas on 12-18-2024 Potassium (Unsp spec) [Mass/Vol] 4.3 mmol/L 3.3-5.1 [facility] RBC Auto (Bld) [#/Vol]Ordere d By: Victor M Rojas on 12-18-2024 RBC (Bld) [#/Vol] 4.97 10*6/uL 4.6-6.2 [facility] Screening total cholesterol/ high density lipoprotein (HDL) cholesterol ratioOrdered By: Victor M Rojas on 12-18-2024 Cholesterol.total/Cholest giuliana in HDL [Mass ratio] 4.53 {ratio} [facility] Serum creatinine measurement (mass/volume)Ordered By: Victor M Rojas on 12-18-2024 Creatinine [Mass/Vol] 1.74 mg/dL High 0.70-1.20 [facility] Serum globulin measurementOr dered By: Victor M Rojas on 12-18-2024 Globulin (S) [Mass/Vol] 3.5 g/dL 2.2-4.2 [facility] Serum glucose measurement (m ass/volume)Ordered By: Victor M Rojas on 12-18-2024 Glucose [Mass/Vol] 82 mg/dL 70-99 [facility] Serum or plasma alanine mojica otransferase (ALT) measurementOrdered By: Victor M Rojas on 12-18-2024 ALT [Catalytic activity/Vol] 20 U/L <47 [facility] Serum or plasma albumin akash urement (mass/volume)Ordered By: Victor M Rojas on 12-18-2024 Albumin [Mass/Vol] 3.3 g/dL Low 3.4-4.8 [facility] Serum or plasma albumin/glob ulin mass ratioOrdered By: Victor M Rojas on 12-18-2024 Albumin/Globulin [Mass ratio] 1.0 {ratio} 0.9-2.4 [facility] Serum or plasma alkaline marielos sphatase measurementOrdered By: Victor M Rojas on 12-18-2024 ALP [Catalytic activity/Vol] 117 U/L 40-129 [facility] Serum or plasma calcium akash urement (mass/volume)Ordered By: Victor M Rojas on 12-18-2024 Calcium [Mass/Vol] 8.8 mg/dL 7.6-11.0 [facility] Serum or plasma cholesterol in HDL measurement (mass/volume)Ordered By: Victor M Rojas on 12-18-2024 Cholesterol in HDL [Mass/Vol] 21 mg/dL Low >40 [facility] Comment on above: National Cholesterol Education Program (NCEP) guidelines:<40 mg/dL: Low HDL-cholesterol (major risk factor for CHD)>= 60 mg/dL: High HDL-cholesterol (negative risk factor for CHD)HDL-cholesterol is affected by a number of factors, e.g. smoking, exercise, hormones, sex and age. Serum or plasma cholesterol measurement (mass/volume)Ordered By: Victor M Rojas on 12-18-2024 Cholesterol [Mass/Vol] 94 mg/dL <201 [facility] Comment on above: Cholesterol level, D esirable <200 mg/dLBorderline high cholesterol 200-239 mg/dLHigh cholesterol >=240 mg/dLRecommendations of the NCEP Adult Treatment Panel for the following risk-cutoff thresholds for the [place] population. Serum or plasma urea nitroge n measurement (mass/volume)Ordered By: Victor M Rojas on 12-18-2024 Urea nitrogen [Mass/Vol] 32 mg/dL High 4-19 [facility] Sodium levelOrdered By: Brandon Rojas on 12-18-2024 Sodium [Moles/Vol] 138 mmol/L 133-145 [facility] TSH DL <= 0.005 mIU/L QnOrde red By: Victor M Rojas on 12-18-2024 TSH Qn 1.380 uIU/mL 0.300-4.200 [facility] Total proteinOrdered By: Prosper Rojas on 12-18-2024 Protein [Mass/Vol] 6.8 g/dL 5.9-8.4 [facility] Triglycerides measurementOrd ered By: Victor M Rojas on 12-18-2024 Triglyceride [Mass/Vol] 125 mg/dL <199 [facility] Comment on above: The drugs N-Acetylcy steine and Metamizole may falsely depress this assay. Normal range: <150 mg/dLBorderline High: 150-199 mg/dLHigh: 200-499 mg/dLVery High: >500 mg/dL White blood cell (WBC) count Ordered By: Victor M Rojas on 12-18-2024 WBC (Bld) [#/Vol] 7.7 10*3/uL 4.4-11.0 [facility] Anion gap in Serum or Plasma Ordered By: Victor M Rojas on 11-20-2024 Anion gap [Moles/Vol] 13 mmol/L 5-15 [facility] BUN/creatinine ratioOrdered By: Victor M Rojas on 11-20-2024 Urea nitrogen/Creatinine [Mass ratio] 16.5 mg/mg 10-20 [facility] Carbon dioxide, total [Moles /volume] in Central venous bloodOrdered By: Victor M Rojas on 11-20-2024 CO2 [Moles/Vol] 20.9 mmol/L Low 21.0-32.0 [facility] Chloride assayOrdered By: Stefan Rojas on 11-20-2024 Chloride [Moles/Vol] 104 mmol/L 98-108 [facility] Glomerular filtration rate ( GFR) estimation/1.73 sq m using serum, plasma, or whole bOrdered By: Victor M Rojas on 11-20-2024 GFR/1.73 sq M.predicted among non-blacks MDRD (S/P/Bld) [Vol rate/Area] 38 mL/min/{1.73_m2} Low >60 [facility] Comment on above: mL/min/1.73m2 CKD-EP I Creatinine Equation (2020) Potassium measurement (mass/ volume)Ordered By: Victor M Rojas on 11-20-2024 Potassium (Unsp spec) [Mass/Vol] 4.2 mmol/L 3.3-5.1 [facility] Serum creatinine measurement (mass/volume)Ordered By: Victor M Rojas on 11-20-2024 Creatinine [Mass/Vol] 1.75 mg/dL High 0.70-1.20 [facility] Serum glucose measurement (m ass/volume)Ordered By: Victor M Rojas on 11-20-2024 Glucose [Mass/Vol] 130 mg/dL High 70-99 [facility] Serum or plasma albumin akash urement (mass/volume)Ordered By: Victor M Rojas on 11-20-2024 Albumin [Mass/Vol] 3.5 g/dL 3.4-4.8 [facility] Serum or plasma calcium akash urement (mass/volume)Ordered By: Victor M Rojas on 11-20-2024 Calcium [Mass/Vol] 8.8 mg/dL 7.6-11.0 [facility] Serum or plasma urea nitroge n measurement (mass/volume)Ordered By: Victor M Rojas on 11-20-2024 Urea nitrogen [Mass/Vol] 29 mg/dL High 4-19 [facility] Sodium levelOrdered By: Brandon Rojas on 11-20-2024 Sodium [Moles/Vol] 139 mmol/L 133-145 [facility] Calculated very low density lipoprotein (VLDL) cholesterol measurementOrdered By: Christina Whipple on 11-07-2024 Calculated very low density lipoprotein (VLDL) cholesterol measurement 34 mg/dL 5-40 [facility] LDL calc ser/plasOrdered By: Christina Whipple on 11-07-2024 Cholesterol in LDL [Mass/Vol] 43 mg/dL [facility] Comment on above: Mcjynfrimy=893-746 m g/dL & Higher Mvvj=816 mg/dL or greater Screening total cholesterol/ high density lipoprotein (HDL) cholesterol ratioOrdered By: Christina Whipple on 11-07-2024 Cholesterol.total/Cholest giuliana in HDL [Mass ratio] 4.60 {ratio} [facility] Serum or plasma cholesterol in HDL measurement (mass/volume)Ordered By: Christina Whipple on 11-07-2024 Cholesterol in HDL [Mass/Vol] 21 mg/dL Low >40 [facility] Comment on above: National Cholesterol Education Program (NCEP) guidelines:<40 mg/dL: Low HDL-cholesterol (major risk factor for CHD)>= 60 mg/dL: High HDL-cholesterol (negative risk factor for CHD)HDL-cholesterol is affected by a number of factors, e.g. smoking, exercise, hormones, sex and age. Serum or plasma cholesterol measurement (mass/volume)Ordered By: Christina Whipple on 11-07-2024 Cholesterol [Mass/Vol] 99 mg/dL <201 [facility] Comment on above: Cholesterol level, D esirable <200 mg/dLBorderline high cholesterol 200-239 mg/dLHigh cholesterol >=240 mg/dLRecommendations of the NCEP Adult Treatment Panel for the following risk-cutoff thresholds for the [place] population. Triglycerides measurementOrd ered By: Christina Whipple on 11-07-2024 Triglyceride [Mass/Vol] 171 mg/dL <199 [facility] Comment on above: The drugs N-Acetylcy steine and Metamizole may falsely depress this assay. Normal range: <150 mg/dLBorderline High: 150-199 mg/dLHigh: 200-499 mg/dLVery High: >500 mg/dL Anion gap in Serum or Plasma Ordered By: Victor M Rojas on 10-23-2024 Anion gap [Moles/Vol] 12 mmol/L 5-15 [facility] BUN/creatinine ratioOrdered By: Victor M Rojas on 10-23-2024 Urea nitrogen/Creatinine [Mass ratio] 21.7 mg/mg High 10-20 [facility] Carbon dioxide, total [Moles /volume] in Central venous bloodOrdered By: Victor M Rojas on 10-23-2024 CO2 [Moles/Vol] 19.8 mmol/L Low 21.0-32.0 [facility] Chloride assayOrdered By: Stefan Rojas on 10-23-2024 Chloride [Moles/Vol] 106 mmol/L 98-108 [facility] Glomerular filtration rate ( GFR) estimation/1.73 sq m using serum, plasma, or whole bOrdered By: Victor M Rojas on 10-23-2024 GFR/1.73 sq M.predicted among non-blacks MDRD (S/P/Bld) [Vol rate/Area] 39 mL/min/{1.73_m2} Low >60 [facility] Comment on above: mL/min/1.73m2 CKD-EP I Creatinine Equation (2020) Potassium measurement (mass/ volume)Ordered By: Victor M Rojas on 10-23-2024 Potassium (Unsp spec) [Mass/Vol] 4.0 mmol/L 3.3-5.1 [facility] Serum creatinine measurement (mass/volume)Ordered By: vianeyrentonprice Rojas on 10-23-2024 Creatinine [Mass/Vol] 1.73 mg/dL High 0.70-1.20 [facility] Serum glucose measurement (m ass/volume)Ordered By: Victor M Rojas on 10-23-2024 Glucose [Mass/Vol] 129 mg/dL High 70-99 [facility] Serum or plasma albumin akash urement (mass/volume)Ordered By: Brandonrentonprice Rojas on 10-23-2024 Albumin [Mass/Vol] 3.3 g/dL Low 3.4-4.8 [facility] Serum or plasma calcium akash urement (mass/volume)Ordered By: Victor M Rojas on 10-23-2024 Calcium [Mass/Vol] 8.6 mg/dL 7.6-11.0 [facility] Serum or plasma urea nitroge n measurement (mass/volume)Ordered By: Victor M Rojas on 10-23-2024 Urea nitrogen [Mass/Vol] 38 mg/dL High 4-19 [facility] Sodium levelOrdered By: [facility] chriskandis Darwinluissammi on 10-23-2024 Sodium [Moles/Vol] 137 mmol/L 133-145 [facility] Cardiology Visit Reporton Cardiology Visit Report [facility] [address] [place], [place] [address]sammi. [address] [place] [address] OFFICE VISIT Date of Service: 10/16/24 MR#: [id number] Acct: [id number] Name: ELIZABETH MODI Rep #: [id number] : 1940 Provider: GILL Connor Age/Sex: 84/M Location: [facility] Status: Signed HPI HPI History of Present [...] x 1 in December of [address] [facility] in [place]. He had a left internal mammary artery to left anterior descending coronary artery. He is residing at a [facility]. From a cardiac standpoint, patient is doing [...] Intake Vital Signs 01/11/24 07:47 10/15/24 16:00 04/30/25 07:59 Height 5 ft 6 in 5 ft 6 in 5 ft 6 in Weight: 180 lb BMI 29.0 BP 131/74 H Blood Pressure Location Rt brachial Position Sitting Respiration 18 Pulse 64 Pulse Source NIBP Intake Visit Reasons: [facility] WANTED SOONER THAN DECEMBER SO DIDN'T WANT DIRECTOR E LEARNING Financial Compliance Manager Required: No Accompanied by: Caregiver Is patient [...] PFSH Medic (more content not included)... Normal [facility] Elbow min 3 Viewson 10-16-19 25 Elbow min 3 Views [facility] Imaging Services [address] [place] [address] Elbow min 3 Views MR#: [id number] Acct: [id number] Name: ELIZABETH MODI Rep #: [id number] : 1940 M 84 From: Edy Kapadia MD PCP: Dr. Diana Salmeron MD Status: REG ER Study: Elbow min 3 Views Date of Exam: 10/15/24 Exam# [id number] Ordering Dr: Jesse Angel DO EXAM: Left elbow CLINICAL HISTORY: Injury, pain COMPARISON: None TECHNIQUE: Three views FINDINGS: No acute fracture or dislocation. Moderate joint space narrowing and osteophyte formation consistent with moderate arthrosis. Normal soft tissues. RAD/Elbow min 3 Views IMPRESSION: No acute fracture or dislocation. Moderate arthrosis. Reading Location: [id number] CC: Dr. Diana Salmeron MD; Dr. Jesse Angel DO Pharmacy Informaticist: Signed Normal [facility] Emergency Department Summary on 10-15-2024 Emergency Department Summary [facility] Medical Records Department [address] [place] [address] Emergency Department Summary 10/15/24 MR#: [id number] Acct: [id number] Name: ELIZABETH MODI Rep #: [id number] : 1940 84 From: Jesse Angel DO [...] of his last tetanus. 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 Normal [facility] Orb Sella Post Fossa Ear w/o on 10-15-2024 Orb Sella Post Fossa Ear w/o [facility] Imaging Services [address] [place] [address] Orb Sella Post Fossa Ear w/o MR#: [id number] Acct: [id number] Name: ELIZABETH MODI Rep #: [id number] : 1940 84 From: Edy Kapadia MD PCP: Dr. Diana Salmeron MD Status: REG ER Study: Orb Sella Post Fossa Ear w/o Date of Exam: Exam# [id number] Ordering Dr: Jesse Angel DO PROCEDURE: ORB [...] ORBITAL FRACTURE OR RETROBULBAR HEMATOMA. Reading Location: [facility] CC: Dr. Diana Salmeron MD; Dr. Jesse Angel DO Pharmacy Informaticist: Signed Normal [facility] Bacteria Ur Culton 5 Bacteria identified Cx [...] technique or straight catheterization for???urine???collecti on. Normal [facility] Comment on above: Performed By: #### 6 30-4 #### [facility] CLIA [id number] [address] [place] [address] OF [facility] CNOVon 10-01-2024 CNOV Office Visit (UROLWS ) ELIZABETH MODI ([id number]) 1940 M [facility] Date Time Provider Department 10/01/24 1:00 PM NIKOLAI CONNOR UROLRAFIQ During your visit today, we recorded the [...] the procedure well. Plan: Appointment with Nikolai. Nikolai Connor PA-C 10/01/2024 2:58 PM Signed [facility] EST PATIENT CLINIC NOTE (M) Some elements copied [...] (ADULTS MULTIVITAMIN ORAL) Take by mouth. vit C,Q-Ut-ilkau-lutein-ze axan (PRESERVISION AREDS-2) 250-90-40-1 mg Take 1 [...] mg ta (more content not included)... Normal [facility] 10-01-2024 CNPN Telephone (UROLWS) LYELIZABETH Mason ([id number]) 1940 M T Date Time Provider Department 10/01/24 NIKOLAI CONNOR During your visit today, we recorded the following information about you: Yue Huffman 10/01/2024 2:13 PM Signed May you please submit another order for for Urogram CT. When last appt was canceled the order was not removed from the appt. Sorry for the inconvenience. Marivel ANDRADE Allergies As of Date: 10/01/2024 (No Known Allergies) Date Reviewed: 10/01/2024 Reviewed by: Luke Taylor LPN - Fully Assessed Primary Visit Diagnosis:Gross hematuria [R31.0] Order(s):CT UROGRAM WO/W IVCON [[id number]] Order #: [id number] FUTURE iv contrast (will be provided with [...] MULTIVITAMIN ORAL) Take by mouth. - vit C,W-Fj-mqxsl-lutein-ze axan (PRESERVISION AREDS-2) 250-90-40-1 mg Take 1 [...] mouth once (more content not included)... Normal [facility] Anion gap in Serum or Plasma Ordered By: Victor M Rojas on 09-18-2024 Anion gap [Moles/Vol] 14 mmol/L 5-15 [facility] BUN/creatinine ratioOrdered By: Victor M Rojas on 09-18-2024 Urea nitrogen/Creatinine [Mass ratio] 14.2 mg/mg 10- [facility] Bilirubin, totalOrdered By: Victor M Rojas on 09-18-2024 Bilirubin [Mass/Vol] 0.55 mg/dL 0.00-1.30 [facility] Calculated very low density lipoprotein (VLDL) cholesterol measurementOrdered By: Victor M Rojas on 09-18-2024 Calculated very low density lipoprotein (VLDL) cholesterol measurement 38 mg/dL 5-40 [facility] VLDL Cholesterol 38 mg/dL 5-40 [facility] Carbon dioxide, total [Moles /volume] in Central venous bloodOrdered By: Victor M Rojas on 09-18-2024 CO2 [Moles/Vol] 19.8 mmol/L Low 21.0-32.0 [facility] Chloride assayOrdered By: Stefan Rojas on 09-18-2024 Chloride [Moles/Vol] 102 mmol/L 98-108 [facility] Erythrocyte distribution wid th (RBC) [Ratio]Ordered By: Victor M Rojas on 09-18-2024 Erythrocyte distribution width (RBC) [Entitic vol] 47.1 fL High 35.1-43.9 [facility] Erythrocyte distribution wid th ratioOrdered By: Victor M Rojas on 09-18-2024 Erythrocyte distribution width (RBC) [Ratio] 14.4 % 11.6-14.6 [facility] Erythrocyte distribution wid th standard deviationOrdered By: Victor M Rojas on 09-18-2024 Erythrocyte distribution width (RBC) [Ratio] 47.1 fl High 35.1-43.9 [facility] GFR/1.73 sq M.predicted jacobo g non-blacks MDRD (S/P/Bld) [Vol rate/Area]Ordered By: Victor M Rojas on 09-18-2024 Estimated GFR (MDRD) Non-Af Amer 27 Low >60 [facility] Comment on above: mL/min/1.73m2 CKD-EP I Creatinine Equation (2020) Glomerular filtration rate ( GFR) estimation/1.73 sq m using serum, plasma, or whole bOrdered By: Victor M Rojas on 09-18-2024 GFR/1.73 sq M.predicted among non-blacks MDRD (S/P/Bld) [Vol rate/Area] 27 mL/min/{1.73_m2} Low >60 [facility] Comment on above: mL/min/1.73m2 CKD-EP I Creatinine Equation (2020) Hematocrit Auto (Bld) [Volum e fraction]Ordered By: Victor M Rojas on 09-18-2024 Hematocrit (Bld) [Volume fraction] 41.2 % 40-54 [facility] Hemoglobin A1c percentageOrd ered By: Victor M Rojas on 09-18-2024 HbA1c (Bld) [Mass fraction] 11.3 % >5.7 [facility] Hemoglobin measurementOrdere d By: Victor M Rojas on 09-18-2024 Hemoglobin (Bld) [Mass/Vol] 13.5 g/dL 13.0-16.5 [facility] LDL calc ser/plasOrdered By: Victor M Rojas on 09-18-2024 Cholesterol in LDL [Mass/Vol] 44 mg/dL [facility] Comment on above: Oxrzroulvv=456-006 m g/dL & Higher Wzbq=768 mg/dL or greater LDL Cholesterol, Calculated 44 mg/dL [facility] Comment on above: Pvktkopmfh=549-338 m g/dL & Higher Mitp=080 mg/dL or greater Laboratory - Chemistry and C hemistry - challengeOrdered By: Victor M Rojas on 09-18-2024 AST [Catalytic activity/Vol] 43 U/L High <38 [facility] Comment on above: Hemolysis present, R esults could be affected. MCV (mean corpuscular volume ) determinationOrdered By: Victor M Rojas on 09-18-2024 MCV (RBC) [Entitic vol] 89.6 fL 80-94 [facility] Mean corpuscular hemoglobin (MCH) determinationOrdered By: Victor M Rojas on 09-18-2024 MCH (RBC) [Entitic mass] 29.3 pg 27.0-32.0 [facility] Mean corpuscular hemoglobin concentration (MCHC) determinationOrdered By: Victor M Rojas on 09-18-2024 MCHC (RBC) [Mass/Vol] 32.8 g/dL 32-36 [facility] Mean platelet volume determi nationOrdered By: Victor M Rojas on 09-18-2024 Platelet mean volume (Bld) [Entitic vol] 12.0 fL 6.2-12.0 [facility] Platelet countOrdered By: Stefan Rojas on 09-18-2024 Platelets (Bld) [#/Vol] 209 10*3/uL 150-450 [facility] Potassium (Unsp spec) [Mass/ Vol]Ordered By: Victor M Rojas on 09-18-2024 Potassium [Moles/Vol] 4.1 mmol/L 3.3-5.1 [facility] Comment on above: Hemolysis present, R esults could be affected. Potassium measurement (mass/ volume)Ordered By: Victor M Rojas on 09-18-2024 Potassium (Unsp spec) [Mass/Vol] 4.1 mmol/L 3.3-5.1 [facility] Comment on above: Hemolysis present, R esults could be affected. RBC Auto (Bld) [#/Vol]Ordere d By: Victor M Rojas on 09-18-2024 RBC (Bld) [#/Vol] 4.60 10*6/uL 4.6-6.2 [facility] Screening total cholesterol/ high density lipoprotein (HDL) cholesterol ratioOrdered By: Victor M Rojas on 09-18-2024 Cholesterol.total/Cholest giuliana in HDL [Mass ratio] 4.29 {ratio} [facility] Serum creatinine measurement (mass/volume)Ordered By: Victor M Rojas on 09-18-2024 Creatinine [Mass/Vol] 2.35 mg/dL High 0.70-1.20 [facility] Serum globulin measurementOr dered By: Victor M Rojas on 09-18-2024 Globulin (S) [Mass/Vol] 3.4 g/dL 2.2-4.2 [facility] Serum glucose measurement (m ass/volume)Ordered By: Victor M Rojas on 09-18-2024 Glucose [Mass/Vol] 287 mg/dL High 70-99 [facility] Serum or plasma alanine mojica otransferase (ALT) measurementOrdered By: Victor M Rojas on 09-18-2024 ALT [Catalytic activity/Vol] 41 U/L <47 [facility] Serum or plasma albumin akash urement (mass/volume)Ordered By: Victor M Rojas on 09-18-2024 Albumin [Mass/Vol] 3.4 g/dL 3.4-4.8 [facility] Serum or plasma albumin/glob ulin mass ratioOrdered By: Victor M Rojas on 09-18-2024 Albumin/Globulin [Mass ratio] 1.0 {ratio} 0.9-2.4 [facility] Serum or plasma alkaline marielos sphatase measurementOrdered By: Victor M Rojas on 09-18-2024 ALP [Catalytic activity/Vol] 113 U/L 40-129 [facility] Serum or plasma calcium akash urement (mass/volume)Ordered By: Victor M Rojas on 09-18-2024 Calcium [Mass/Vol] 9.0 mg/dL 7.6-11.0 [facility] Serum or plasma cholesterol in HDL measurement (mass/volume)Ordered By: Victor M Rojas on 09-18-2024 Cholesterol in HDL [Mass/Vol] 25 mg/dL Low >40 [facility] Comment on above: National Cholesterol Education Program (NCEP) guidelines:<40 mg/dL: Low HDL-cholesterol (major risk factor for CHD)>= 60 mg/dL: High HDL-cholesterol (negative risk factor for CHD)HDL-cholesterol is affected by a number of factors, e.g. smoking, exercise, hormones, sex and age. Serum or plasma cholesterol measurement (mass/volume)Ordered By: Victor M Rojas on 09-18-2024 Cholesterol [Mass/Vol] 108 mg/dL <201 [facility] Comment on above: Cholesterol level, D esirable <200 mg/dLBorderline high cholesterol 200-239 mg/dLHigh cholesterol >=240 mg/dLRecommendations of the NCEP Adult Treatment Panel for the following risk-cutoff thresholds for the [place] Citizen [place] population. Serum or plasma urea nitroge n measurement (mass/volume)Ordered By: Victor M Rojas 09-18-2024 Urea nitrogen [Mass/Vol] 33 mg/dL High 4-19 [facility] Sodium levelOrdered By: Brandon Rojas on 09-18-2024 Sodium [Moles/Vol] 135 mmol/L 133-145 [facility] TSH DL <= 0.005 mIU/L QnOrde red By: Victor M Rojas on 09-18-2024 Thyroid Stimulating Hormone (TSH) 3.520 uIU/mL 0.300-4.200 [facility] TSH Qn 3.520 uIU/mL 0.300-4.200 [facility] Total proteinOrdered By: Prospersammi phelan Bob on 09-18-2024 Protein [Mass/Vol] 6.7 g/dL 5.9-8.4 [facility] Triglycerides measurementOrd ered By: Victor M Rojas on 09-18-2024 Triglyceride [Mass/Vol] 192 mg/dL <199 [facility] Comment on above: The drugs N-Acetylcy steine and Metamizole may falsely depress this assay. Normal range: <150 mg/dLBorderline High: 150-199 mg/dLHigh: 200-499 mg/dLVery High: >500 mg/dL White blood cell (WBC) count Ordered By: Victor M Rojas on 09-18-2024 WBC (Bld) [#/Vol] 8.5 10*3/uL 4.4-11.0 [facility] Gastroenterology Visit Repor ton 09-06-2024 Gastroenterology Visit Report [facility] Gastroenterology [address] [place] [address] OFFICE VISIT Date of Service: 09/06/24 MR#: [id number] Acct: [id number] Name: ELIZABETH MODI Rep #: [id number] : 1940 Provider: GILL Jefferson Age/Sex: 84/M Location: [facility] Status: Signed Intake Vital Signs 01/11/24 07:47 [...] is experiencing diarrhea only once in awhile. 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 alcohol intake: current alcohol intake frequency: a few times a month details: Prior heavier, now occasional. substance use type: does not use HPI HPI Chief Complaint: fecal incontinence Details: ELIZABETH MODI, is a 84 M who presents to the office today for f/u. [facility] hospitalization 12.14.22-12.17.22 for management of choledocholithiasis, calculous [...] Appearance: average body habitus and well nourished [facility] Head: normal to ins (more content not included)... Normal [facility] Anion gap in Serum or Plasma Ordered By: Victor M Rojas on 08-21-2024 Anion gap [Moles/Vol] 14 mmol/L 5-15 [facility] BUN/creatinine ratioOrdered By: Victor M Rojas on 08-21-2024 Urea nitrogen/Creatinine [Mass ratio] 18.2 mg/mg 10- [facility] Carbon dioxide, total [Moles /volume] in Central venous bloodOrdered By: Victor M Rojas on 08-21-2024 CO2 [Moles/Vol] 20.5 mmol/L Low 21.0-32.0 [facility] Chloride assayOrdered By: Stefan Rojas on 08-21-2024 Chloride [Moles/Vol] 102 mmol/L 98-108 [facility] GFR/1.73 sq M.predicted jacobo g non-blacks MDRD (S/P/Bld) [Vol rate/Area]Ordered By: Victor M Rojas on 08-21-2024 Estimated GFR (MDRD) Non-Af Amer 31 Low >60 [facility] Comment on above: mL/min/1.73m2 CKD-EP I Creatinine Equation (2020) Glomerular filtration rate ( GFR) estimation/1.73 sq m using serum, plasma, or whole bOrdered By: Victor M Rojas on 08-21-2024 GFR/1.73 sq M.predicted among non-blacks MDRD (S/P/Bld) [Vol rate/Area] 31 mL/min/{1.73_m2} Low >60 [facility] Comment on above: mL/min/1.73m2 CKD-EP I Creatinine Equation (2020) Potassium (Unsp spec) [Mass/ Vol]Ordered By: Victor M Rojas on 08-21-2024 Potassium [Moles/Vol] 4.3 mmol/L 3.3-5.1 [facility] Potassium measurement (mass/ volume)Ordered By: Victor M Rojas on 08-21-2024 Potassium (Unsp spec) [Mass/Vol] 4.3 mmol/L 3.3-5.1 [facility] Serum creatinine measurement (mass/volume)Ordered By: Victor M Rojas on 08-21-2024 Creatinine [Mass/Vol] 2.07 mg/dL High 0.70-1.20 [facility] Serum glucose measurement (m ass/volume)Ordered By: Victor M Rojas on 08-21-2024 Glucose [Mass/Vol] 198 mg/dL High 70-99 [facility] Serum or plasma albumin akash urement (mass/volume)Ordered By: Victor M Rojas on 08-21-2024 Albumin [Mass/Vol] 3.3 g/dL Low 3.4-4.8 [facility] Serum or plasma calcium akash urement (mass/volume)Ordered By: Victor M Rojas on 08-21-2024 Calcium [Mass/Vol] 8.8 mg/dL 7.6-11.0 [facility] Serum or plasma urea nitroge n measurement (mass/volume)Ordered By: Victor M Rojas on 08-21-2024 Urea nitrogen [Mass/Vol] 38 mg/dL High 4-19 [facility] Serum phosphorus measurement Ordered By: Victor M Rojas on 08-21-2024 Phosphorus Level 4.2 mg/dL 2.7-4.5 [facility] Sodium levelOrdered By: Brandon Rojas on 08-21-2024 Sodium [Moles/Vol] 136 mmol/L 133-145 [facility] Random urine microalbumin me asurementOrdered By: Victor M Rojas on 08-01-2024 Urine Random Microalbumin 583.0 mg/L NO RANGE EST. [facility] Urine albumin/creatinine rat io for detection of microalbuminuriaOrdered By: Victor M Rojas on 08-01-2024 Urine Microalbumin/Creatinine Ratio 1371.8 mg/g CRE High <30 [facility] Urine creatinine measurement (mass/volume)Ordered By: Victor M Rojas on 08-01-2024 Creatinine (U) [Mass/Vol] 42.50 mg/dL NO RANGE EST. [facility] Blood urea nitrogen (BUN)/cr eatinine ratioOrdered By: Victor M Rojas on 07-24-2024 Urea nitrogen/Creatinine [Mass ratio] 20.5 mg/mg High 10-20 [facility] Carbon dioxide measurementOr dered By: Victor M Rojas on 07-24-2024 CO2 [Moles/Vol] 21.0 mmol/L 21.0-32.0 [facility] Chloride measurementOrdered By: Victor M Rojas on 07-24-2024 Chloride [Moles/Vol] 106 mmol/L 98-107 [facility] Estimated glomerular filtrat ion rate (GFR) AmericanOrdered By: Victor M Rojas on 07-24-2024 Estimated GFR (MDRD) Amer 44 mL/min Low >60 [facility] Comment on above: GFR Calc Glomerular filtration rate ( GFR) estimationOrdered By: Victor M Rojas on 07-24-2024 Estimated GFR (MDRD) Non-Af Amer 36 mL/min Low >60 [facility] Comment on above: Non- GFR Calc GFR/1.73 sq M.predicted among non-blacks MDRD (S/P/Bld) [Vol rate/Area] 36 mL/min/{1.73_m2} Low >60 [facility] Comment on above: Non- GFR Calc Glucose measurementOrdered B y: Victor M Rojas on 07-24-2024 Glucose [Mass/Vol] 230 mg/dL High 74-106 [facility] Comment on above: Glucose result great er than or equal to 200 mg/dLsuggests DIABETES MELLITUS per A.D.A. criteria. Hemoglobin A1c percentageOrd ered By: Victor M Rojas on 07-24-2024 HbA1c (Bld) [Mass fraction] 8.3 % High 3.8-5.6 [facility] Comment on above: Normal < 5.7 % Predi abetic 5.7 - 6.4 % Diabetic >or= 6.5 % Please note range changes. Phosphorus measurementOrdere d By: Victor M Rojas on 07-24-2024 Phosphorus Level 3.4 mg/dL 2.5-4.9 [facility] Potassium measurementOrdered By: Victor M Rojas on 07-24-2024 Potassium [Moles/Vol] 4.3 mmol/L 3.5-5.1 [facility] Serum or plasma albumin akash urement (mass/volume)Ordered By: Victor M Rojas on 07-24-2024 Albumin [Mass/Vol] 2.7 g/dL Low 3.2-5.0 [facility] Serum or plasma calcium akash urement (mass/volume)Ordered By: Victor M Rojas on 07-24-2024 Calcium [Mass/Vol] 8.2 mg/dL Low 8.5-10.1 [facility] Serum or plasma creatinine m easurement (mass/volume)Ordered By: Victor M Rojas on 07-24-2024 Creatinine [Mass/Vol] 1.90 mg/dL High 0.70-1.30 [facility] Comment on above: The validity of the calculated GFR & GFRAA in patients over 70 years has not been determined. Clinical correlation is essential. Serum or plasma urea nitroge n measurement (mass/volume)Ordered By: Victor M Rojas on 07-24-2024 Urea nitrogen [Mass/Vol] 39 mg/dL High 7-18 [facility] Sodium levelOrdered By: Stefanvianey tianna Darwinluissammi on 07-24-2024 Sodium [Moles/Vol] 135 mmol/L Low 136-[address] [facility] [address] UROGRAM WO/W IVCONon 06-19 CT UROGRAM WO/W IVCON * * *Final Report* * * DATE OF EXAM: Jun 28 2024 2:26PM [facility] 0560 - CT UROGRAM WO/W IVCON / [...] be communicated with the ordering provider via [employer] staff message or phone message by [employer] within 2 business days of report finalization. --END OF FINDING-- Pharmacy Informaticist: ONEL Transcribe Date/Time: Jul 01 2024 9:40P Dictated by : JARAD ARCOS MD This examination was interpreted and the report reviewed and electronically signed by: JARAD ARCOS MD on Jul 01 2024 9:53PM EST [id number] Invalid Interpretation Code [facility] Estimated glomerular filtrat ion rate (GFR) AmericanOrdered By: Victor M Rojas on 06-27-2024 Estimated GFR (MDRD) Amer 37 mL/min Low >60 [facility] Comment on above: GFR Calc Glomerular filtration rate ( GFR) estimationOrdered By: Victor M Rojas on 06-27-2024 Estimated GFR (MDRD) Non-Af Amer 31 mL/min Low >60 [facility] Comment on above: Non- GFR Calc Serum or plasma creatinine m easurement (mass/volume)Ordered By: Victor M Rojas on 06-27-2024 Creatinine [Mass/Vol] 2.20 mg/dL High 0.70-1.30 [facility] Comment on above: The validity of the calculated GFR & GFRAA in patients over 70 years has not been determined. Clinical correlation is essential. Beau 06-21-2024 [facility] Telephone (NAELWS) ELIZABETH MODI ([id number]) 1940 M [facility] Date Time Provider Department 06/21/24 NIKOLAI CONNOR During your visit today, we recorded the following information about you: Anaid Payne MA 06/21/2024 4:28 PM Signed ----- Message from Nikolai Connor PA-C sent at 06/21/2024 3:54 PM EST ----- No infection in the urine No cancer cells in urine, please continue the rest of the testing Nikolai Connor MPAS, MT, PA-C Susan Joy MA 06/25/2024 8:47 AM Signed LM for [facility] to contact office to inform. GAYATRI Evans Kimberly, LPN 07/05/2024 4:27 PM Signed Called [facility]. No answer- left message to call clinic. MARV Morocho Kimberly, LPN 07/09/2024 3:50 PM Signed Called [facility]. No answer- left message to call clinic. MARV Morocho Kimberly, LPN 07/09/2024 3:50 PM Signed Letter sent to [...] MULTIVITAMIN ORAL) Take by mouth. - vit C,S-Wj-esqde-lutein-ze axan (PRESERVISION AREDS-2) 250-90-40-1 mg Take 1 [...] Status:Closed by LUKE TAYLOR on 07/09/24 Normal [facility] Absolute neutrophil countOrd ered By: Victor M Rojas on 06-20-2024 Neutrophils (Bld) [#/Vol] 5.5 10*3/uL 2.0-7.7 [facility] Albumin to globulin ratioOrd ered By: Victor M Rojas on 06-20-2024 Albumin/Globulin [Mass ratio] 0.7 {ratio} Low 0.9-2.4 [facility] Basophil percentageOrdered B y: Victor M Rojas on 06-20-2024 Basophils/100 WBC (Bld) 0.3 % 0-1 [facility] Bilirubin, totalOrdered By: Victor M Rojas on 06-20-2024 Bilirubin [Mass/Vol] 0.70 mg/dL 0.20-1.00 [facility] Comment on above: For patients on eltr ombopag therapy, use of Dimension [place] TBIL is not recommended. Blood urea nitrogen (BUN)/cr eatinine ratioOrdered By: Victor M Rojas on 06-20-2024 Urea nitrogen/Creatinine [Mass ratio] 19.0 mg/mg 10-20 [facility] Carbon dioxide measurementOr dered By: Victor M Rojas on 06-20-2024 CO2 [Moles/Vol] 24.0 mmol/L 21.0-32.0 [facility] Chloride measurementOrdered By: Victor M Rojas on 06-20-2024 Chloride [Moles/Vol] 104 mmol/L 98-107 [facility] Eosinophil percentageOrdered By: Victor M Rojas on 06-20-2024 Eosinophils/100 WBC (Bld) 2.5 % 0-5 [facility] Erythrocyte distribution wid th (RBC) [Ratio]Ordered By: Victor M Rojas on 06-20-2024 Erythrocyte distribution width (RBC) [Entitic vol] 47.8 fL High 35.1-43.9 [facility] Erythrocyte distribution wid th ratioOrdered By: Victor M Rojas on 06-20-2024 Erythrocyte distribution width (RBC) [Ratio] 14.7 % High 11.6-14.6 [facility] Estimated glomerular filtrat ion rate (GFR) AmericanOrdered By: Victor M Rojas on 06-20-2024 Estimated GFR (MDRD) Amer 51 mL/min Low >60 [facility] Comment on above: GFR Calc Glomerular filtration rate ( GFR) estimationOrdered By: Victor M Rojas on 06-20-2024 Estimated GFR (MDRD) Non-Af Amer 42 mL/min Low >60 [facility] Comment on above: Non- GFR Calc Glucose measurementOrdered B y: Victor M Rojas on 06-20-2024 Glucose [Mass/Vol] 190 mg/dL High 74-106 [facility] Comment on above: Fasting Glucose resu lt greater than or equal to 126 mg/dL suggests DIABETES MELLITUS per A.D.A. criteria. Hematocrit Auto (Bld) [Volum e fraction]Ordered By: Victor M Rojas on 06-20-2024 Hematocrit (Bld) [Volume fraction] 42.8 % 40-54 [facility] Hemoglobin A1c percentageOrd ered By: Victor M Rojas on 06-20-2024 HbA1c (Bld) [Mass fraction] 8.3 % High 3.8-5.6 [facility] Comment on above: Normal < 5.7 % Predi abetic 5.7 - 6.4 % Diabetic >or= 6.5 % Please note range changes. Hemoglobin measurementOrdere d By: Victor M Rojas on 06-20-2024 Hemoglobin (Bld) [Mass/Vol] 13.6 g/dL 13.0-16.5 [facility] High density lipoprotein (HD L) measurementOrdered By: Victor M Rojas on 06-20-2024 Cholesterol in HDL [Mass/Vol] 29 mg/dL Low >40 [facility] Comment on above: The drugs N-Acetylcy steine and Metamizole may falsely depress this assay. Reference Range HDL <40 mg/dL Low HDL Cholesterol HDL >or= 60 mg/dL High HDL Cholesterol Immature granulocytes/100 WB C Auto (Bld)Ordered By: Victor M Rojas on 06-20-2024 Immature granulocytes/100 WBC (Bld) 1.900 % High 0.0-0.9 [facility] Comment on above: IG% - Immature Granu locytes (promyelocytes, myelocytes and metamyelocytes) > 1% indicates that a LEFT SHIFT is Present. Laboratory - Chemistry and C hemistry - challengeOrdered By: Victor M Rojas on 06-20-2024 AST [Catalytic activity/Vol] 37 U/L 15-37 [facility] Comment on above: Slight Hemolysis, Re sult may be falsely increased. Low density lipoprotein (LDL ) cholesterol measurementOrdered By: Victor M Rojas on 06-20-2024 Cholesterol in LDL [Mass/Vol] 46 mg/dL 0-130 [facility] Lymphocytes Auto (Unsp spec) [#/Vol]Ordered By: Victor M Rojas on 06-20-2024 Lymphocytes (Bld) [#/Vol] 1.97 10*3/uL 0.83-4.5 1 [facility] Lymphocytes/100 WBC Auto (Un sp spec)Ordered By: Victor M Rojas on 06-20-2024 Lymphocytes/100 WBC (Bld) 21.8 % 19-41 [facility] MCV (mean corpuscular volume ) determinationOrdered By: Victor M Rojas on 06-20-2024 MCV (RBC) [Entitic vol] 89.9 fL 80-94 [facility] Mean corpuscular hemoglobin (MCH) determinationOrdered By: Victor M Rojas on 06-20-2024 MCH (RBC) [Entitic mass] 28.6 pg 27.0-32.0 [facility] Mean corpuscular hemoglobin concentration (MCHC) determinationOrdered By: Victor M Rojas on 06-20-2024 MCHC (RBC) [Mass/Vol] 31.8 g/dL Low 32-36 [facility] Mean platelet volume determi nationOrdered By: Victor M Rojas on 06-20-2024 Platelet mean volume (Bld) [Entitic vol] 11.9 fL 6.2-12.0 [facility] Monocyte percentageOrdered B y: Victor M Rojas on 06-20-2024 Monocytes/100 WBC (Bld) 13.0 % High 0-10 [facility] Neutrophil percentageOrdered By: Victor M Rojas on 06-20-2024 Neutrophils/100 WBC (Bld) 60.5 % 47-70 [facility] Nucleated red blood cell per centageOrdered By: Victor M Rojas on 06-20-2024 Nucleated RBC/100 WBC (Bld) [Ratio] 0 % 0-5 [facility] Platelet countOrdered By: Stefan Rojas on 06-20-2024 Platelets (Bld) [#/Vol] 239 10*3/uL 150-450 [facility] Potassium measurementOrdered By: Victor M Rojas on 06-20-2024 Potassium [Moles/Vol] 4.2 mmol/L 3.5-5.1 [facility] Comment on above: Slight Hemolysis, Re sult may be falsely increased. RBC Auto (Bld) [#/Vol]Ordere d By: Victor M Rojas on 06-20-2024 RBC (Bld) [#/Vol] 4.76 10*6/uL 4.6-6.2 [facility] Serum anion gap measurementO rdered By: Victor M Rojas on 06-20-2024 Anion gap [Moles/Vol] 8 mmol/L 5-15 [facility] Serum globulin measurementOr dered By: Victor M Rojas on 06-20-2024 Globulin (S) [Mass/Vol] 3.9 g/dL 2.2-4.2 [facility] Serum or plasma alanine mojica otransferase (ALT) measurementOrdered By: Victor M Rojas on 06-20-2024 ALT [Catalytic activity/Vol] 45 U/L 16-61 [facility] Serum or plasma albumin akash urement (mass/volume)Ordered By: Victor M Rojas on 06-20-2024 Albumin [Mass/Vol] 2.8 g/dL Low 3.2-5.0 [facility] Serum or plasma alkaline marielos sphatase measurementOrdered By: Victor M Rojas on 06-20-2024 ALP [Catalytic activity/Vol] 123 U/L High 45-117 [facility] Serum or plasma calcium akash urement (mass/volume)Ordered By: Victor M Rojas on 06-20-2024 Calcium [Mass/Vol] 8.4 mg/dL Low 8.5-10.1 [facility] Serum or plasma cholesterol measurement (mass/volume)Ordered By: Victor M Rojas on 06-20-2024 Cholesterol [Mass/Vol] 104 mg/dL <200 [facility] Comment on above: <200 mg/dL Desirable 200-240 mg/dL Borderline >240 mg/dL High Risk Serum or plasma creatinine m easurement (mass/volume)Ordered By: Victor M Rojas on 06-20-2024 Creatinine [Mass/Vol] 1.68 mg/dL High 0.70-1.30 [facility] Comment on above: The validity of the calculated GFR & GFRAA in patients over 70 years has not been determined. Clinical correlation is essential. Serum or plasma urea nitroge n measurement (mass/volume)Ordered By: Victor M Rojas on 06-20-2024 Urea nitrogen [Mass/Vol] 32 mg/dL High 7-18 [facility] Sodium levelOrdered By: Brandon Rojas on 06-20-2024 Sodium [Moles/Vol] 136 mmol/L 136-145 [facility] TSH QnOrdered By: Victor M Rojas on 06-20-2024 Thyroid Stimulating Hormone (TSH) 2.290 uIU/mL 0.358-3.740 [facility] Total proteinOrdered By: Prosper phelan Darwinluissammi on 06-20-2024 Protein [Mass/Vol] 6.7 g/dL 6.4-8.2 [facility] Triglycerides measurementOrd ered By: Victor M Darwinluissammi on 06-20-2024 Triglyceride [Mass/Vol] 145 mg/dL <199 [facility] Comment on above: The drugs N-Acetylcy steine and Metamizole may falsely depress this assay.Serum Triglycerides Reference Interval Normal <150 mg/dL Borderline high 150 - 199 mg/dL High 200 - 499 mg/dL Very High > or = 500 mg/dL Very low density lipoprotein (VLDL) cholesterol measurementOrdered By: Brandonleonaprice Rojas on 06-20-2024 VLDL Cholesterol 29 mg/dL 5-40 [facility] White blood cell (WBC) count Ordered By: Stefanvianeyleonaprice Granadosluissammi on 06-20-2024 WBC (Bld) [#/Vol] 9.1 10*3/uL 4.4-11.0 [facility] Bacteria Ur Culton Bacteria identified Cx [...] technique or straight catheterization for???urine???collecti on. Normal [facility] Comment on above: Performed By: #### 6 30-4 #### [facility] CLIA [id number] [address] [place] [address] [place] CNOVon 06-18-2024 CNOV Office Visit (UROLWS ) ELIZABETH MODI ([id number]) 1940 M T Date Time Provider Department 06/18/24 1:00 PM NIKOLAI CONNOR UROLRAFIQ During your visit today, we recorded the following information about you: Nikolai Connor PA-C 06/18/2024 4:05 PM Signed [facility] NEW PATIENT CLINIC NOTE SERVICE DATE: June 18, 2024 NAME: Elizabeth Modi CHIEF COMPLAINT: Hematuria HISTORY OF PRESENT ILLNESS: Elizabeth Modi is a 83 year old male an new patient here for The patient reports Hematuria with a few episodes of hematuria Will get Urine sample today for culture and cytology Schedule Cystoscopy at [place] And CT Urogram at [place] We discussed the need for full hematuria [...] (ADULTS MULTIVITAMIN ORAL) Take by mouth. vit C,W-Nd-kuzir-lutein-ze axan (PRESERVISION AREDS-2) 250-90-40-1 mg Take 1 [...] in [place] Congestive heart failure (HCC) DM (diab (more content not included)... Normal [facility] CREATININE BLDOrdered By: Amelia August on 06-18-2024 Creatinine [Mass/Vol] 1.37 mg/dL High 0.73 - 1.22 mg/dL [facility] GFR/1.73 sq M.predicted among non-blacks MDRD (S/P/Bld) [Vol rate/Area] 52 mL/min/{1.73_m2} Low - PINF [facility] Comment on above: Estimated Glomerular Filtration Rate [...] Interpretation and review of laboratory results Abnormal [facility] CREATININE BLDon 06-18-2024 Creatinine [Mass/Vol] 1.37 mg/dL High 0.73-1.22 [facility] Comment on above: Order Comment: Speci men Type: BLOOD SPECIMEN Ordering Facility: [facility] Address: [address] [place] [address] Performed By: #### C RET1 #### [facility] CLIA [id number] [address] [place] [address] [place] Creatinine and Glomerular filtration rate.predicted panel (S/P/Bld) 52 mL/min/1.73m??? Low >=60 [facility] Comment on above: Order Comment: Speci men Type: BLOOD SPECIMEN Ordering Facility: [facility] Address: [address] [place] [address] Result Comment: Alma Delia mated Glomerular Filtration [...] GFR. Performed By: #### C RET1 #### [id number] [address] [place] [address] [place] CYTOLOGY NON-GYNon CASE REPORT Normal [facility] Comment on above: Order Comment: Speci men Type: URINE SPECIMEN Ordering Facility: [facility] Address: [address] [place] [address] Result Comment: [facility] Cytology Report Case: [id number] Authorizing Provider: Nikolai Connor PA-C Collected: 06/18/2024 01:58 PM Ordering Location: Urology Received: 06/18/2024 02:43 PM Pathologist: Eric Sutherland MD Specimen: Urine, Cystoscopic Performed By: #### C SAMI #### [facility] CLIA [id number] [address] [place] [address] [place] [address] [place] CLINICAL HISTORY hematuria [facility] Comment on above: Order Comment: Speci men Type: URINE SPECIMEN Ordering Facility: [facility] Address: [address] [place] [address] Performed By: #### C YTONON #### [facility] CLIA [id number] [address] [place] [address] [place] FINAL DIAGNOSIS Normal [facility] Comment on above: Order Comment: Speci men Type: URINE SPECIMEN Ordering Facility: [facility] Address: [address] [place] [address] Result Comment: A - Urine, Cystoscopic Negative for high-grade urothelial carcinoma. Acute and chronic inflammation. Blood. Performed By: #### C YTONON #### [facility] CLIA [id number] [address] [place] [address] [place] FINAL PERFORMING LAB Normal [facility] Comment on above: Order Comment: Speci men Type: URINE SPECIMEN Ordering Facility: [facility] Address: [address] [place] [address] Result Comment: Tech nical component, nursing project coordinator screening performed at [facility], [address] [place] [address] CLIA# [id number] Diagnostic interpretation performed at [facility], [address] [place] [address] CLIA# [id number] Button Maker: Kemal Campos M.D. Performed By: #### C YTONON #### [facility] CLIA [id number] [address] [place] [address] [place] GROSS DESCRIPTION [facility] Comment on above: Order Comment: Speci men Type: URINE SPECIMEN Ordering Facility: [facility] Address: [address] [place] [address] Result Comment: A. U rine, Cystoscopic 8 cc cloudy red fluid . ThinPrep prepared. Performed By: #### C YTONON #### [facility] CLIA [id number] [address] [place] [address] [place] Bilirubin Test strip Ql (U)O rdered By: Victor M Rojas on 06-17-2024 Bilirubin Ql (U) Negative Negative [facility] Glucose Ql (U)Ordered By: Stefan Rojas on 06-17-2024 Glucose (U) [Mass/Vol] 1000 mg/dL High Normal [facility] Ketones Test strip Ql (U)Ord ered By: Victor M Rojas on 06-17-2024 Ketones Ql (U) Negative Negative [facility] Nitrite Test strip Ql (U)Ord ered By: Victor M Rojas on 06-17-2024 Nitrite Ql (U) Negative Negative [facility] Protein Test strip Ql (U)Ord ered By: Victor M Rojas on 06-17-2024 Protein Ql (U) 500 mg/dl High Negative [facility] Urine blood detectionOrdered By: Victor M Rojas on 06-17-2024 Urine Occult Blood 250 /ul High Negative [facility] Urine clarityOrdered By: Prosper Rojas on 06-17-2024 Clarity (U) Cloudy Clear [facility] Urine color determinationOrd ered By: Victor M Rojas on 06-17-2024 Color (U) Red Yellow [facility] Urine cultureOrdered By: Prosper Rojas on 06-17-2024 Bacteria identified Cx Nom (U) Culture exhibits no growth. [facility] Urine leukocyte esterase det ection by dipstickOrdered By: Victor M Rojas on 06-17-2024 Leukocyte esterase Test strip Ql (U) 25 /ul High Negative [facility] Urine pHOrdered By: Tg Rojas on 06-17-2024 pH (U) 5.0 [pH] 5.0 - 8.0 [facility] Urine specific gravity measu rementOrdered By: Victor M Rojas on 06-17-2024 Specific gravity (U) [Rel density] 1.015 1.002-1.030 [facility] Urobilinogen Ql (U)Ordered B y: Victor M Rojas on 06-17-2024 Urine Urobilinogen Normal mg/dl Normal [facility] Gastroenterology Visit Repor ton 06-06-2024 Gastroenterology Visit Report [facility] Gastroenterology [address] [place] [address] OFFICE VISIT Date of Service: 06/06/24 MR#: [id number] Acct: [id number] Name: ELIZABETH MODI Rep #: [id number] : 1940 Provider: GILL Jefferson Age/Sex: 83/M Location[place] [facility] Status: Signed Intake Vital Signs 01/11/24 07:47 [...] Denies bloody stools, N/V/C and abdominal pain. 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 alcohol intake: current alcohol intake frequency: a few times a month details: Prior heavier, now occasional. substance use type: does not use HPI HPI Chief Complaint: f/u. Details: ELIZABETH MODI, is a 83 M who presents to the office today for f/u. *[facility] hospitalization 12.14.22-12.17.22 for management of choledocholithiasis (ATB [...] MHD dila (more content not included)... Normal [facility] Gastroenterology Visit Repor ton 03-04-2024 Gastroenterology Visit Report [facility] Gastroenterology [address] [place] [address] OFFICE VISIT Date of Service: 03/04/24 MR#: [id number] Acct: [id number] Name: ELIZABETH MODI Rep #: [id number] : 1940 Provider: Sohail Owen DO Age/Sex: 83/M Location: [facility] Status: Signed Intake Vital Signs 06/06/23 10:41 [...] you fallen in the past year?: No [facility] Medical History (Updated 03/04/24 @ 10:55 [...] pulmonary disease) Obesity Atherosclerotic heart disease of [place] coronary artery without angina pectoris Paroxysmal atrial [...] Father Diabetes Heart disease Social History housing: alf Smoking Status: Former smoker how long ago did patient quit smoking: Quit . alcohol intake: current alcohol intake frequency: a few times a month details: Prior heavier, now occasional. substance use type: does not use HPI HPI Details: ELIZABETH MODI, is a 83 M who presents to the office today for follow up. *[facility] hospitalization 12.14.22-12.17.22 for management of choledocholithiasis (ATB [...] without abdominal pain or other concerns. OV 9..24 pt reports that he is feeling well overall, does endorse (more content not included)... Normal [facility] BCIDon 08-02-2023 Acinetobacter landon-baumanii complex Not detected Normal [facility]ed [facility] Comment on above: Performed By: #### B MARANDA #### [place] [address] Bacteroides fragilis Not detected Normal [facility] Detected [facility] Comment on above: Performed By: #### B MARANDA #### [place] [address] BCID Comment See Comment Normal [facility] Comment on above: Result Comment: Anti microbial [...] follow. Performed By: #### B MARANDA #### [address] [address] Megan albicans Not detected Normal [facility] Detected [facility] Comment on above: Performed By: #### B MARANDA #### [facility] [address] [place] [address] Megan auris Not detected Normal [facility] Detected [facility] Comment on above: Performed By: #### B MARANDA #### [facility] [address] [place] [address] Megan glabrata Not detected Normal [facility] Detected [facility] Comment on above: Performed By: #### B MARNADA #### [facility] [address] [place] [address] Megan krusei Not detected Normal [facility] Detected [facility] Comment on above: Performed By: #### B MARANDA #### [facility] [address] [place] [address] Megan parapsilosis Not detected Normal [facility] Detected [facility] Comment on above: Performed By: #### B MARANDA #### [place] [address] Megan tropicalis Not detected Normal [facility] Detected [facility] Comment on above: Performed By: #### B MARANDA #### [place] [address] Cryptococcus neoformans-gattii Not detected Normal [facility] Detected [facility] Comment on above: Performed By: #### B MARANDA #### [place] [address] CTX-M (ESBL) Not Applicable Normal [facility] Detected [facility] Comment on above: Performed By: #### B MARANDA #### [place] [address] E. Coli Not detected Normal [facility] Detected [facility] Comment on above: Performed By: #### B MARANDA #### [facility] [address] [place] [address] Enterobacter cloacae Complex Not detected Normal [facility] Detected [facility] Comment on above: Performed By: #### B MARANDA #### [facility] [address] [place] [address] Enterobacterales Not detected Normal [facility] Detected [facility] Comment on above: Performed By: #### B MARANDA #### [address] [address] Enterococcus faecalis Not detected Normal [facility] Detected [facility] Comment on above: Performed By: #### B MARANDA #### [facility] [address] [place], [place] [address] Enterococcus faecium Not detected Normal [facility] Detected [facility] Comment on above: Performed By: #### B MARANDA #### [place] [id number] Haemophilus influenzae Not detected Normal [facility] Detected [facility] Comment on above: Performed By: #### B MARANDA #### [place] [address] IMP (Carbapenemase) Not Applicable Normal [facility] Detected [facility] Comment on above: Performed By: #### B MARANDA #### [place] [address] Klebsiella aerogenes Not detected Normal [facility] Detected [facility] Comment on above: Performed By: #### B MARANDA #### [place] [address] Klebsiella oxytoca Not detected Normal [facility] Detected [facility] Comment on above: Performed By: #### B MARANDA #### [place] [address] Klebsiella pneumoniae group Not detected Normal [facility] Detected [facility] Comment on above: Performed By: #### B MARANDA #### [place] [address] KPC (Carbapenemase) Not Applicable Normal Not Detected [facility] Comment on above: Performed By: #### B MARANDA #### [place] [address] Listeria monocytogenes Not detected Normal [facility] Detected [facility] Comment on above: Performed By: #### B MARANDA #### [place] [id number] MCR-1 (Colistin Resistance) Not Applicable Normal Not Detected [facility] Comment on above: Performed By: #### B MARANDA #### [place] [id number] Mec A/C Detected Abnormal Not Detected [facility] Comment on above: Performed By: #### B MARANDA #### [place] [address] Mec A/C-MREJ (MRSA) Not Applicable Normal Not Detected [facility] Comment on above: Performed By: #### B MARANDA #### [place] [address] NDM (Carbapenemase) Not Applicable Normal Not Detected [facility] Comment on above: Performed By: #### B MARANDA #### [place] [address] Neisseria meningitidis (Encapsalated) Not detected Normal [facility] Detected [facility] Comment on above: Performed By: #### B MARANDA #### [place] [address] OXA-48 like (Carbapenemase) Not Applicable Normal Not Detected [facility] Comment on above: Performed By: #### B MARANDA #### [place] [address] Proteus Not detected Normal [facility] Detected [facility] Comment on above: Performed By: #### B MARANDA #### [place] [address] Pseudomonas aeruginosa Not detected Normal [facility] Detected [facility] Comment on above: Performed By: #### B MARANDA #### [place] [address] S. agalactiae Org specific cx Ql (Vag fld) Not detected Normal [facility] Detected [facility] Comment on above: Performed By: #### B MARANDA #### [place] [address] Salmonella species Not detected [facility] Detected [facility] Comment on above: Performed By: #### B MARANDA #### [place] [address] Serratia marcescens Not detected Normal [facility] Detected [facility] Comment on above: Performed By: #### B MARANDA #### [address] [address] Staphylococcus Detected Abnormal Not Detected [facility] Comment on above: Performed By: #### B MARANDA #### [address] [address] Staphylococcus aureus Not detected Normal [facility] Detected [facility] Comment on above: Result Comment: If S taphylococcus aureus is "Detected", an Infectious Disease physician consult is required on identification. Performed By: #### B MARANDA #### [place] [id number] Staphylococcus epidermidis Detected Abnormal Not Detected [facility] Comment on above: Performed By: #### B MARANDA #### [place] [id number] Staphylococcus lugdunensis Not detected Normal [facility] Detected [facility] Comment on above: Performed By: #### B MARANDA #### [place] [address] Stenotrophomonas maltophilia Not detected Normal [facility] Detected [facility] Comment on above: Performed By: #### B MARANDA #### [address] [address] Streptococcus Not detected Normal [facility] Detected [facility] Comment on above: Performed By: #### B MARANDA #### [address] [address] Streptococcus pneumoniae Not detected Normal [facility] Detected [facility] Comment on above: Performed By: #### B MARANDA #### [place] [id number] Streptococcus pyogenes Not detected Normal [facility] Detected [facility] Comment on above: Performed By: #### B MARANDA #### [address] [address] Van A/B Not Applicable Normal [facility] Detected [facility] Comment on above: Performed By: #### B MARANDA #### [address] [address] VIM (Carbapenemase) Not Applicable Normal Not Detected [facility] Comment on above: Performed By: #### B MARANDA #### [facility] [address] [place] [address] Absolute lymphocyte countOrd ered By: Dwayne Palumbo on 02-08-2023 Lymphocytes Auto (Unsp spec) [#/Vol] 1.91 10*3/uL 0.83-4.51 [facility] Basophil percentageOrdered B y: Dwayne Palumbo on 02-08-2023 Basophils/100 WBC (Bld) 0.2 % 0-1 [facility] Bilirubin [Mass/Vol] 0.90 mg/dL 0.20-1.00 [facility] Comment on above: For patients on eltr ombopag therapy, use of Dimension [place] TBIL is not recommended. Chloride [Moles/Vol] 105 mmol/L 98-107 [facility] Eosinophils/100 WBC (Bld) 2.7 % 0-5 [facility] Glucose [Mass/Vol] 191 mg/dL 74-106 [facility] Comment on above: Fasting Glucose resu lt greater than or equal to 126 mg/dL suggests DIABETES MELLITUS per A.D.A. criteria. Neutrophils (Bld) [#/Vol] 7.0 10*3/uL 2.0-7.7 [facility] Neutrophils/100 WBC (Bld) 66.4 % 47-70 [facility] Potassium [Moles/Vol] 4.1 mmol/L 3.5-5.1 [facility] Protein [Mass/Vol] 8.0 g/dL 6.4-8.2 [facility] Sodium [Moles/Vol] 137 mmol/L 136-145 [facility] WBC (Bld) [#/Vol] 10.5 10*3/uL 4.4-11.0 [facility] Blood erythrocytes count (nu mber/volume)Ordered By: Dwayne Palumbo on 02-08-2023 RBC (Bld) [#/Vol] 4.64 10*6/uL 4.6-6.2 [facility] Blood hemoglobin measurement (mass/volume)Ordered By: Dwayne Palumbo on 02-08-2023 Hemoglobin (Bld) [Mass/Vol] 12.7 g/dL 13.0-16.5 [facility] Blood lymphocytes/100 leukoc ytesOrdered By: Dwayne Palumbo on 02-08-2023 Lymphocytes/100 WBC (Bld) 18.2 % 19-41 [facility] Blood monocytes/100 leukocyt esOrdered By: Dwayne Palumbo on 02-08-2023 Monocytes/100 WBC (Bld) 11.2 % 0-10 [facility] Blood platelet mean volumeOr dered By: Dwayne Palumbo on 02-08-2023 Platelet mean volume (Bld) [Entitic vol] 10.7 fL 6.2-12.0 [facility] Determination of erythrocyte mean corpuscular volume (MCV)Ordered By: Dwayne Palumbo on 02-08-2023 MCV (RBC) [Entitic vol] 86.6 fL 80-94 [facility] Hematocrit Auto (Bld) [Volum e fraction]Ordered By: Dwayne Palumbo on 02-08-2023 Hematocrit (Bld) [Volume fraction] 40.2 % 40-54 [facility] - Chemistry and C hemistry - challengeOrdered By: Dwayne Palumbo on 02-08-2023 ALP [Catalytic activity/Vol] 122 U/L 45-117 [facility] ALT [Catalytic activity/Vol] 42 U/L 16-61 [facility] CO2 [Moles/Vol] 23.0 mmol/L 21.0-32.0 [facility] Globulin (S) [Mass/Vol] 4.6 g/dL 2.2-4.2 [facility] Urea nitrogen/Creatinine [Mass ratio] 25.7 mg/mg 10-20 [facility] - Hematology and Cell countsOrdered By: Dwayne Palumbo on 02-08-2023 Erythrocyte distribution width (RBC) [Entitic vol] 50.7 fL 35.1-43.9 [facility] Erythrocyte distribution width (RBC) [Ratio] 16.1 % 11.6-14.6 [facility] Immature granulocytes/100 WBC (Bld) 1.300 % 0.0-0.9 [facility] Comment on above: IG% - Immature Granu locytes (promyelocytes, myelocytes and metamyelocytes) > 1% indicates that a LEFT SHIFT is Present. MCH (RBC) [Entitic mass] 27.4 pg 27.0-32.0 [facility] Nucleated RBC/100 WBC (Bld) [Ratio] 0 % 0-5 [facility] Auto (RBC) [Mass/Vol]Or dered By: Dwayne Palumbo on 02-08-2023 MCHC (RBC) [Mass/Vol] 31.6 g/dL 32-36 [facility] No Panel InformationOrdered By: Dwayne Palumbo on 02-08-2023 Estimated GFR (MDRD) Amer 46 mL/min >60 [facility] Comment on above: GFR Calc Estimated GFR (MDRD) Non-Af Amer 38 mL/min >60 [facility] Comment on above: Non- GFR Calc Platelets bldOrdered By: Edilson Palumbo on 02-08-2023 Platelets (Bld) [#/Vol] 275 10*3/uL 150-450 [facility] Serum or plasma albumin akash urement (mass/volume)Ordered By: Dwayne Palumbo on 02-08-2023 Albumin [Mass/Vol] 3.4 g/dL 3.2-5.0 [facility] Serum or plasma albumin/glob ulin mass ratioOrdered By: Dwayne Palumbo on 02-08-2023 Albumin/Globulin [Mass ratio] 0.7 {ratio} 0.9-2.4 [facility] Serum or plasma calcium akash urement (mass/volume)Ordered By: Dwayne Palumbo on 02-08-2023 Calcium [Mass/Vol] 9.4 mg/dL 8.5-10.1 [facility] Serum or plasma creatinine m easurement (mass/volume)Ordered By: Dwayne Palumbo on 02-08-2023 Creatinine [Mass/Vol] 1.83 mg/dL 0.70-1.30 [facility] Comment on above: The validity of the calculated GFR & GFRAA in patients over 70 years has not been determined. Clinical correlation is essential. Serum or plasma urea nitroge n measurement (mass/volume)Ordered By: Dwayne Palumbo on 02-08-2023 Urea nitrogen [Mass/Vol] 47 mg/dL 7-18 [facility] Thin prep Papanicolaou smear with manual screeningOrdered By: Dwayne Palumbo on 02-08-2023 Thin prep Papanicolaou smear with manual screening 30 U/L 15-37 [facility] Thin prep Papanicolaou smear with manual screening 9 5-15 [facility] Absolute lymphocyte countOrd ered By: Jesse Haywood on 12-17-2022 Lymphocytes Auto (Unsp spec) [#/Vol] 0.86 10*3/uL 0.83-4.51 [facility] Basophil percentageOrdered B y: Jesse Haywood on 12-17-2022 Basophils/100 WBC (Bld) 0.1 % 0-1 [facility] Chloride [Moles/Vol] 113 mmol/L 98-107 [facility] Eosinophils/100 WBC (Bld) 0.2 % 0-5 [facility] Glucose [Mass/Vol] 178 mg/dL 74-106 [facility] Comment on above: Fasting Glucose resu lt greater than or equal to 126 mg/dL suggests DIABETES MELLITUS per A.D.A. criteria. Neutrophils (Bld) [#/Vol] 8.2 10*3/uL 2.0-7.7 [facility] Neutrophils/100 WBC (Bld) 80.2 % 47-70 [facility] Potassium [Moles/Vol] 3.8 mmol/L 3.5-5.1 [facility] Sodium [Moles/Vol] 141 mmol/L 136-145 [facility] WBC (Bld) [#/Vol] 10.2 10*3/uL 4.4-11.0 [facility] Blood erythrocytes count (nu mber/volume)Ordered By: Jesse Haywood on 12-17-2022 RBC (Bld) [#/Vol] 3.91 10*6/uL 4.6-6.2 [facility] Blood hemoglobin measurement (mass/volume)Ordered By: Jesse Haywood on 12-17-2022 Hemoglobin (Bld) [Mass/Vol] 11.1 g/dL 13.0-16.5 [facility] Blood lymphocytes/100 leukoc ytesOrdered By: Jesse Haywood on 12-17-2022 Lymphocytes/100 WBC (Bld) 8.4 % 19-41 [facility] Blood monocytes/100 leukocyt esOrdered By: Jesse Haywood on 12-17-2022 Monocytes/100 WBC (Bld) 9.2 % 0-10 [facility] Blood platelet mean volumeOr dered By: Jesse Haywood on 12-17-2022 Platelet mean volume (Bld) [Entitic vol] 11.4 fL 6.2-12.0 [facility] Determination of erythrocyte mean corpuscular volume (MCV)Ordered By: Jesse Haywood on 12-17-2022 MCV (RBC) [Entitic vol] 87.7 fL 80-94 [facility] Glucose Glucometer (BldC) [M ass/Vol]Ordered By: Jesse Haywood on 12-17-2022 Glucose [Mass/Vol] 216 mg/dL 74-106 [facility] Comment on above: MANAGEMENT OF PATIEN T CARE PER NURSING PROTOCOL Hematocrit Auto (Bld) [Volum e fraction]Ordered By: Jesse Haywood on 12-17-2022 Hematocrit (Bld) [Volume fraction] 34.3 % 40-54 [facility] Laboratory - Chemistry and C hemistry - challengeOrdered By: Jesse Haywood on 12-17-2022 CO2 [Moles/Vol] 21.0 mmol/L 21.0-32.0 [facility] Urea nitrogen/Creatinine [Mass ratio] 30.1 mg/mg 10-20 [facility] - Hematology and Cell countsOrdered By: Jesse Haywood on 12-17-2022 Erythrocyte distribution width (RBC) [Entitic vol] 47.4 fL 35.1-43.9 [facility] Erythrocyte distribution width (RBC) [Ratio] 14.7 % 11.6-14.6 [facility] Immature granulocytes/100 WBC (Bld) 1.900 % 0.0-0.9 [facility] Comment on above: IG% - Immature Granu locytes (promyelocytes, myelocytes and metamyelocytes) > 1% indicates that a LEFT SHIFT is Present. MCH (RBC) [Entitic mass] 28.4 pg 27.0-32.0 [facility] Nucleated RBC/100 WBC (Bld) [Ratio] 0 % 0-5 [facility] MCHC Auto (RBC) [Mass/Vol]Or dered By: Jesse Haywood on 12-17-2022 MCHC (RBC) [Mass/Vol] 32.4 g/dL 32-36 [facility] No Panel InformationOrdered By: Jesse Haywood on 12-17-2022 Estimated Creatinine Clearance Calc 34.17 ml/min [facility] Estimated GFR (MDRD) Amer 56 mL/min >60 [facility] Comment on above: GFR Calc Estimated GFR (MDRD) Non-Af Amer 47 mL/min >60 [facility] Comment on above: Non- GFR Calc Platelets bldOrdered By: Stephanie Haywood on 12-17-2022 Platelets (Bld) [#/Vol] 248 10*3/uL 150-450 [facility] Serum or plasma calcium akash urement (mass/volume)Ordered By: Jesse Haywood on 12-17-2022 Calcium [Mass/Vol] 8.0 mg/dL 8.5-10.1 [facility] Serum or plasma creatinine m easurement (mass/volume)Ordered By: Jesse Haywood on 12-17-2022 Creatinine [Mass/Vol] 1.53 mg/dL 0.70-1.30 [facility] Comment on above: The validity of the calculated GFR & GFRAA in patients over 70 years has not been determined. Clinical correlation is essential. Serum or plasma urea nitroge n measurement (mass/volume)Ordered By: Jesse Haywood on 12-17-2022 Urea nitrogen [Mass/Vol] 46 mg/dL 7-18 [facility] Thin prep Papanicolaou smear with manual screeningOrdered By: Jesse Haywood on 12-17-2022 Thin prep Papanicolaou smear with manual screening 7 5-15 [facility] Bacteria identified Anaer cx Nom (Unsp spec)Ordered By: Dwayne Palumbo on 12-16-2022 Anaerobic Culture Bacteroides vulgatus [facility] Bacteria identified Cx Nom ( Wound)Ordered By: Dwayne Palumbo on 12-16-2022 Wound Culture Escherichia coli [facility] Basophil percentageOrdered B y: Jesse Haywood on 12-16-2022 Bilirubin [Mass/Vol] 2.00 mg/dL 0.20-1.00 [facility] Comment on above: For patients on eltr ombopag therapy, use of Dimension [place] TBIL is not recommended. Protein [Mass/Vol] 6.4 g/dL 6.4-8.2 [facility] Gram stain for investigation of transfusion reactionOrdered By: Dwayne Palumbo on 12-16-2022 Microscopic observation Gram stain Nom (Unsp spec) [facility] INR in Blood by Coagulation assayOrdered By: Emmanuel Kohler on 12-16-2022 INR Coag (Bld) [Relative time] 1.3 {INR} [facility] - Chemistry and C hemistry - challengeOrdered By: Jesse Haywood on 12-16-2022 ALP [Catalytic activity/Vol] 278 U/L 45-117 [facility] ALT [Catalytic activity/Vol] 132 U/L 16-61 [facility] Globulin (S) [Mass/Vol] 4.2 g/dL 2.2-4.2 [facility] - CoagulationOrde red By: Emmanuel Kohler on 12-16-2022 PT Coag (PPP) [Time] 16.5 s 11.7-14.9 [facility] Serum or plasma albumin akash urement (mass/volume)Ordered By: Jesse Haywood on 12-16-2022 Albumin [Mass/Vol] 2.2 g/dL 3.2-5.0 [facility] Serum or plasma albumin/glob ulin mass ratioOrdered By: Jesse Haywood on 12-16-2022 Albumin/Globulin [Mass ratio] 0.5 {ratio} 0.9-2.4 [facility] Thin prep Papanicolaou smear with manual screeningOrdered By: Jesse Haywood on 12-16-2022 Thin prep Papanicolaou smear with manual screening 74 U/L 15-37 [facility] Blood manual differential co mment interpretation (narrative result)Ordered By: Jesse Haywood on 12-15-2022 Manual differential comment Ghassan (Bld) [Interp] COMMENT [facility] Comment on above: MONOCYTOSIS. Laboratory - CoagulationOrde red By: Jesse Wang on 12-15-2022 aPTT Coag (Bld) [Time] 38.5 s 24.1-36.2 [facility] No Panel InformationOrdered By: Jesse Wang on 12-15-2022 Thyroid Stimulating Hormone (TSH) 1.50 uIU/mL 0.358-3.74 [facility] Review by pathologistOrdered By: Jesse Haywood on 12-15-2022 Pathologist review Ghassan (Unsp spec) [Interp] Reviewed [facility] Comment on above: Previous reported re sult: Stacy saran Edited by: PUMA on 12/15/22:1321Neutrophilic leukocytosis.Clinical correlation necessary.Raymond Knox M.D. 12/15/22 AMENDED REPORT 12/15/22 1321 PATH REV previously reported as: Stacy noonan Whole blood hemoglobin A1c/t otal hemoglobin ratio (mass fraction)Ordered By: Jesse Wang on 12-15-2022 HbA1c (Bld) [Mass fraction] 6.9 % 3.8-5.6 [facility] Comment on above: Normal < 5.7 % Predi abetic 5.7 - 6.4 % Diabetic >or= 6.5 % Please note range changes. BLOOD TB SCREENon 09-02-2022 M. tuberculosis tuberculin stim IFN-g Ql (Bld) Negative [facility] Mitogen minus Nil 5.42 IU/mL >=0.50 IU/mL [facility] TB Gamma Interpretation Infection with M . tuberculosis complex is unlikely. If latent tuberculosis infection is highly suspected, a negative result does not rule out the infection. Specimens from immunocompromised patients and those <5 years of age may show false negative results. In case of a contact investigation, please repeat 8-12 weeks after a known exposure. [facility] TB Nil 0.02 IU/mL <=8.00 IU/mL [facility] TB1 Ag minus Nil 0.00 IU/mL <0.35 IU/mL [facility] TB2 Ag minus Nil <0.35 IU/mL [facility] CBC W Auto Differential pane l (Bld)on 09-02-2022 Anisocytosis Ql (Bld) Present [facility] Basophils (Bld) [#/Vol] 0.00 10*3/uL <0.11 k/uL [facility] Basophils/100 WBC (Bld) 0.0 % [facility] Differential cell count method Nom (Bld) Manual [facility] Eosinophils (Bld) [#/Vol] 0.14 10*3/uL <0.46 k/ uL [facility] Eosinophils/100 WBC (Bld) 1.0 % [facility] Erythrocyte distribution width (RBC) [Ratio] 16.4 % High 11.5 - 15.0 % [facility] Hematocrit (Bld) [Volume fraction] 45.3 % 39.0 - 51.0 % [facility] Hemoglobin (Bld) [Mass/Vol] 14.4 g/dL 13.0 - 17.0 g/dL [facility] Lymphocytes (Bld) [#/Vol] 1.43 10*3/uL 1. 00 - 4.00 k/uL [facility] Lymphocytes/100 WBC (Bld) 10.0 % [facility] MCH (RBC) [Entitic mass] 29.9 pg 26. 0 - 34.0 pg [facility] MCHC (RBC) [Mass/Vol] 31.8 g/dL 30.5 - 36.0 g/dL [facility] MCV (RBC) [Entitic vol] 94.0 fL 80.0 - 100.0 fL [facility] [place] % 1.0 % [facility] Monocytes (Bld) [#/Vol] 1.00 10*3/uL High <0.87 k/uL [facility] Monocytes/100 WBC (Bld) 7.0 % [facility] Neut[facility]ils (Bld[facility] [#/Vol] 11.57 10*3/uL High 1 .45 - 7.50 k/uL [facility] Neutrophils/100 WBC (Bld) 81.0 % [facility] Nucleated RBC (Bld) [#/Vol] <0.01 k/uL [facility] Nucleated RBC/100 WBC (Bld) [Ratio] 0.0 /100 WBC [facility] Ovalocytes LM Ql (Bld) Few Cl [facility] Platelet mean volume (Bld) [Entitic vol] 11.1 fL 9.0 - 12.7 fL [facility] Platelets (Bld) [#/Vol] 282 10*3/uL 150 - 400 k/uL [facility] Platelets Estimate (Bld) [#/Vol] Adequate [facility] Polychromasia LM Ql (Bld) Slight [facility] RBC (Bld) [#/Vol] 4.82 10*6/uL 4.20 - 6.0 0 m/uL [facility] Red Cell Morph Reviewed: see result s of individual morphologies [facility] WBC (Bld) [#/Vol] 14.29 10*3/uL High 3.70 - 11.00 k/uL [facility] WBC Left Shift Ql (Bld) Present [facility] C-REACTIVE PROTEIN (CRP)on 0 09-01-2022 CRP [Mass/Vol] <0.9 mg/dL [facility] Comprehensive metabolic 2000 panelon 09-01-2022 Albumin [Mass/Vol] 4.0 g/dL 3.9 - 4.9 g/dL [facility] ALP [Catalytic activity/Vol] 88 U/L 38 - 113 U/L [facility] ALT [Catalytic activity/Vol] 19 U/L 10 - 54 U/L [facility] Anion gap [Moles/Vol] 11 mmol/L 9 - 18 mmol/L [facility] AST [Catalytic activity/Vol] 19 U/L 14 - 40 U/L [facility] Bilirubin [Mass/Vol] 0.5 mg/dL 0.2 - 1 .3 mg/dL [facility] Calcium [Mass/Vol] 9.4 mg/dL 8.5 - 10. 2 mg/dL [facility] Chloride [Moles/Vol] 106 mmol/L High 97 - 10 5 mmol/L [facility] CO2 [Moles/Vol] 21 mmol/L Low 22 - 30 mmol/L [facility] Creatinine [Mass/Vol] 2.01 mg/dL High 0.73 - 1.22 mg/dL [facility] Estimated Glomerular Filtration Rate 33 mL/min/1.73m Low >=60 mL/min/1.73 m [facility] Glucose [Mass/Vol] 146 mg/dL High 74 - 99 mg/dL [facility] Potassium [Moles/Vol] 4.5 mmol/L 3.7 - 5.1 mmol/L [facility] Protein [Mass/Vol] 7.2 g/dL 6.3 - 8.0 g/dL [facility] Sodium [Moles/Vol] 138 mmol/L 136 - 144 mmol/L [facility] Urea nitrogen [Mass/Vol] 50 mg/dL High 9 - 24 mg/dL [facility] ESR Westergren method (Bld) [Velocity]on 09-01-2022 ESR (Bld) [Velocity] 31 mm/h High 0 - 15 mm/hr [facility] VITAMIN D 25 HYDROXYon 09-01 25-hydroxyvitamin D3 [Mass/Vol] 27.8 ng/mL Low 31.0 - 80.0 ng/mL [facility] LABORATORYOrdered By: Michelle Gardner on 01-13-2022 Blood Glucose Testing Reason Routine (01/13/22 11:36 AM) [facility] Work Phone: Glucose [Mass/Vol] 101 mg/dL Invalid Interpretation Code 82 - 115 mg/dL [facility] Work Phone: Blood Glucose Testing Reason Routine (01/13/22 7:06 AM) [facility] Work Phone: Glucose [Mass/Vol] 87 mg/dL Invalid Interpretation Code 82 - 115 mg/dL [facility] Work Phone: LABORATORYOrdered By: SYSTEM SYSTEM [...] Code 13.0 - 17.5 G/dL Workflow SS Hypochromia Ql (Bld) 1+ *NA* (01/13/22 4:48 AM) Invalid Interpretation Code Workflow SS Lymphocytes (Bld) [#/Vol] 1.2 103/mcL Invali d Interpretation Code 0.9 - 4.3 10^3/mcL Workflow SS Lymphocytes/100 WBC (Bld) 9.0 % Invali d Interpretation Code 20.0 - 40.0 % Workflow SS Magnesium [Mass/Vol] 1.7 mg/dL Invalid Interpretation Code 1.6 - 2.4 mg/dL ADM SS MCH (RBC) [Entitic mass] 28.7 pg Invalid Interpretation Code 27.0 - 33.0 pg Workflow SS MCHC 32.4 G/dL Invalid Interpretation [...] 10^3/mcL AH Workflow SS Monocytes/100 WBC (Bld) 3.0 % Invalid Interpretation Code 2.0 - 13.0 % Workflow SS Myelocytes/100 WBC (Bld) 1.0 % Invalid Interpretation Code AH Workflow SS Neutrophils (Bld) [#/Vol] 11.4 103/mcL Invali d Interpretation Code 2.3 - 8.1 10^3/mcL AH Workflow SS Neutrophils/100 WBC (Bld) 86.0 % Invali d Interpretation Code 50.0 - 75.0 % AH Workflow SS Nucleated RBC 0.0 /100 WBC Invalid Interpretation Code AH Workflow SS Platelet mean volume (Bld) [Entitic [...] AH ADM SS Urea nitrogen/Creatinine [Mass ratio] 24.4 [...] Glucose Testing Reason Routine (01/12/22 8:59 PM) [facility] Work Phone: Glucose [Mass/Vol] 153 mg/dL Invalid Interpretation Code 82 - 115 mg/dL [facility] Work Phone: LABORATORYOrdered By: Adali Spencer [...] Comment on above: Result Comment: [place] [id number] FLU B PCR Negative 8 (01/12/22 10:33 AM) Invalid Interpretation Code Negative AH Auto Viro/Sero SS Comment on above: Result Comment: [place] [id number] Hospitalized Yes (01/12/22 10:33 AM) Invalid Interpretation [...] Comment on above: Result Comment: Note s [id number] SARS-CoV-2 (COVID-19) RNA ARIELLE+probe Ql (Unsp spec) Negative 6 (01/12/22 10:33 AM) Invalid Interpretation Code Negative AH Auto Viro/Sero SS Comment on above: Result Comment: [place] s [id number] Symptomatic as Defined by CDC No (01/12/22 [...] - 2.5 % Workflow SS Calcium [Mass/Vol] 8.8 mg/dL Invalid Interpretation Code 8.7 - 10.4 mg/dL ADM SS Chloride [Moles/Vol] 104 mmol/L Invalid Interpretation Code 98 - 110 mEq/L ADM SS CO2 [Moles/Vol] 26 mmol/L Invalid Interpretation Code 22 - 32 mEq/L ADM SS Creatinine [Mass/Vol] 1.37 mg/dL Invalid Interpretation Code 0.60 - 1.40 mg/dL ADM SS Electrolyte Balance 8.0 mEq/L Invalid [...] - 33.0 pg AH Workflow SS MCHC 32.7 G/dL Invalid Interpretation Code 32.0 - 36.0 G/dL AH Workflow SS MCV (RBC) [Entitic vol] 87.8 fL Invalid Interpretation Code 81.0 - 100.0 fL AH Workflow SS Monocyte distribution width Auto (Bld) [...] RBC 0.0 /100 WBC Invalid Interpretation Code AH Workflow SS Platelet mean volume (Bld) [Entitic [...] Interpretation Code AH Workflow SS Potassium [Moles/Vol] 4.1 mmol/L Invalid [...] [Relative time] 1.1 {INR} Invalid Interpretation Code Auto Coag SS PT Coag (PPP) [Time] [...] Invalid Interpretation Code ADM SS Glucose [Mass/Vol] 79 mg/dL Invalid Interpretation Code 82 - 115 mg/dL ADM SS Hematocrit (Bld) [Volume fraction] 29.0 % Invalid Interpretation Code 40.0 - 52.0 % Workflow SS Hemoglobin (Bld) [Mass/Vol] 9.7 G/dL Invalid Interpretation Code 13.0 - 17.5 G/dL Workflow SS Lymphocytes (Bld) [#/Vol] 1.0 103/mcL Invali d Interpretation Code 0.9 - 4.3 10^3/mcL Workflow SS Lymphocytes/100 WBC (Bld) 9.0 % Invali d Interpretation Code 20.0 - 40.0 % Workflow SS MCH (RBC) [Entitic mass] 29.3 pg Invalid Interpretation Code 27.0 - 33.0 pg Workflow SS MCHC 33.4 G/dL Invalid Interpretation [...] WBC (Bld) 2.0 % Invalid Interpretation Code AH Workflow SS Neutrophils (Bld) [#/Vol] 8.8 103/mcL Invali d Interpretation Code 2.3 - 8.1 10^3/mcL AH Workflow SS Neutrophils/100 WBC (Bld) 80.0 % Invali d Interpretation Code 50.0 - 75.0 % AH Workflow SS Nucleated RBC 0.0 /100 WBC Invalid Interpretation Code AH Workflow SS Platelet mean volume (Bld) [Entitic [...] 10^3/mcL AH Workflow SS Eosinophils/100 WBC (Bld) 1.2 % Invali d Interpretation Code 0.0 - 6.0 % Workflow SS Lymphocytes (Bld) [#/Vol] 1.5 103/mcL Invali d Interpretation Code 0.9 - 4.3 10^3/mcL AH Workflow SS Lymphocytes/100 WBC (Bld) 13.9 % Invali d Interpretation Code 20.0 - 40.0 % Workflow SS Monocytes (Bld) [#/Vol] 1.1 103/mcL Invalid Interpretation Code 0.1 - 1.4 10^3/mcL AH Workflow SS Monocytes/100 WBC (Bld) 9.7 % Invalid Interpretation Code 2.0 - 13.0 % AH Workflow SS Neutrophils (Bld) [#/Vol] 8.1 103/mcL Invali d Interpretation Code 2.3 - 8.1 10^3/mcL AH Workflow SS Neutrophils/100 WBC (Bld) 74.9 % Invali d Interpretation Code 50.0 - 75.0 % AH Workflow SS LABORATORYOrdered By: SYSTEM SYSTEM on 01-08-2022 Basophils (Bld) [#/Vol] 0.1 103/mcL Invalid Interpretation Code 0.0 - 0.3 10^3/mcL AH Workflow SS Basophils/100 WBC (Bld) 0.5 % Invalid Interpretation Code 0.0 - 2.5 % AH Workflow SS Eosinophils (Bld) [#/Vol] 0.0 103/mcL Invali d Interpretation Code 0.0 - 0.7 10^3/mcL Workflow SS Eosinophils/100 WBC (Bld) 0.1 % Invali d Interpretation Code 0.0 - 6.0 % AH Workflow SS Lymphocytes (Bld) [#/Vol] 0.8 103/mcL Invali d Interpretation Code 0.9 - 4.3 10^3/mcL Workflow SS Lymphocytes/100 WBC (Bld) 6.7 % Invali d Interpretation Code 20.0 - 40.0 % Workflow SS Monocytes (Bld) [#/Vol] 1.0 103/mcL [...] Glucose Interventions Administered food/juice (01/06/22 8:38 AM) [facility] Work Phone: LABORATORYOrdered By: SYSTEM SYSTEM on 07-21-2022 Albumin BCP dye [Mass/Vol] 4.1 G/dL Invalid Interpretation Code 3.2 - 4.8 G/dL ADM SS Albumin/Globulin [Mass ratio] 2.3 {ratio} Invalid Interpretation Code 0.9 - 1.6 ratio ADM SS ALP [Catalytic activity/Vol] 52 U/L Invalid Interpretation Code 38 - 126 U/L ADM SS ALT No additional P-5'-P [Catalytic activity/Vol] 9 U/L Invalid Interpretation Code 12 - 55 U/L ADM SS AST [Catalytic activity/Vol] 22 U/L Invalid Interpretation Code 8 - 34 U/L ADM SS Bilirubin [Mass/Vol] 0.70 mg/dL Invalid Interpretation Code 0.20 - 1.20 mg/dL ADM SS Globulin 1.8 G/dL Invalid Interpretation Code 1.5 - 3.8 G/dL ADM SS Protein [Mass/Vol] 5.9 G/dL Invalid Interpretation Code 5.7 - 8.2 G/dL ADM SS LABORATORYOrdered By: Kassidy Lopez on 01-06-2022 aPTT Coag (PPP) [Time] 27.7 s Invalid Interpretation Code 25.0 - 35.0 seconds Auto Coag SS Fibrinogen Coag (PPP) [Mass/Vol] 530 mg/dL Invalid Interpretation Code 250 - 560 mg/dL Auto Coag SS Heparin dose (APTT) Heparin IV (01/06/22 4:00 AM) Invalid Interpretation Code Auto Coag SS LABORATORYOrdered By: Errol Urena on 01-05-2022 Barometric Pressure 701 mm[Hg] Invalid Interpretation Code Auto Chem SS Base excess Calc (Bld) [Moles/Vol] -1.9000 mmol/L Invalid Interpretation Code Auto Chem SS CO2 (Bld) [Partial pressure] 39.9 mm[Hg] Invalid Interpretation Code 32.0 - 46.0 mm Hg Auto Chem SS CO2 [Moles/Vol] 24.2 mmol/L Invalid Interpretation Code 22.0 - 30.0 mmol/L Auto Chem SS HCO3 (Bld) [Moles/Vol] 23.0 mmol/L Invalid Interpretation Code 21.0 - 29.0 mmol/L Auto Chem SS Oxygen (Bld) [Partial pressure] [...] (Bld) [Moles/Vol] -6.5000 mmol/L Invalid Interpretation Code Auto Chem SS CO2 (Bld) [Partial pressure] [...] Invalid Interpretation Code 1.12 - 1.32 mmol/L AH Auto Chem SS LABORATORYOrdered By: SYSTEM SYSTEM on 01-05-2022 Large Platelets Few *NA* (01/05/22 12:54 PM) Invalid Interpretation Code AH Workflow SS Phosphate [Mass/Vol] 3.0 mg/dL Invalid [...] - 7.460 Rapid Comm SS Potassium [Moles/Vol] 3.8 mmol/L Invalid Interpretation Code 3.5 - 5.0 mEq/L Rapid Comm SS Sodium [Moles/Vol] 140 mmol/L Invalid Interpretation Code 136 - 145 mEq/L Rapid Comm SS Albumin BCP dye [Mass/Vol] 3.1 G/dL Invalid Interpretation Code 3.2 - 4.8 G/dL ADM SS Albumin/Globulin [Mass ratio] 0.9 {ratio} Invalid Interpretation Code 0.9 - 1.6 ratio ADM SS ALP [Catalytic activity/Vol] 86 U/L Invalid Interpretation Code 38 - 126 U/L ADM SS ALT No additional P-5'-P [Catalytic activity/Vol] 19 U/L Invalid Interpretation Code 12 - 55 U/L ADM SS AST [Catalytic activity/Vol] 18 U/L Invalid Interpretation Code 8 - 34 U/L ADM SS Bilirubin [Mass/Vol] 1.20 mg/dL Invalid Interpretation Code 0.20 - 1.20 mg/dL ADM SS Globulin 3.3 G/dL Invalid Interpretation Code 1.5 - 3.8 G/dL ADM SS Protein [Mass/Vol] 6.4 G/dL Invalid [...] group A Rh(D) positive Invalid Interpretation Code AH BB Auto SS Blood group antibody screen Ql NEG (01/04/22 5:18 PM) Invalid Interpretation Code AH BB Auto SS LABORATORYOrdered By: Pascale Murphy on 01-04-2022 RBC Product Ready RBC Ready for Pickup (01/04/22 4:44 PM) Invalid Interpretation Code AH BB Manual SS LABORATORYOrdered By: [employer] SYSTEM on 01-04-2022 Albumin BCP dye [Mass/Vol] [...] (01/03/22 8:04 AM) Invalid Interpretation Code Negative AH Manual Urine SS LABORATORYOrdered By: Juliana Diana [...] Blood Glucose Interventions Retest (12/30/21 8:53 AM) [facility] Work Phone: LABORATORYOrdered By: Rohan Rivero [...] Invalid Interpretation Code 0 - 1800 pg/mL Auto Chem SS No Panel InformationOrdered By: Zoltan Mascorro on 12-30-2021 Blood Glucose Interventions Administered food/juice, Administered agent to increase blood sugar (12/30/21 8:32 AM) [facility] Work Phone: Hemoglobin A1con 08-04-2021 Glucose [Mass/Vol] 258 mg/dL Normal [facility] Comment on above: Performed By: #### H BA1C #### [facility] Routine Lab [address] [place], [place] [address] HbA1c (Bld) [Mass fraction] 10.6 % High 4.3-5.6 [facility] Comment on above: Performed By: #### H BA1C #### [facility] Routine Lab [address] [place], [place] [address] Glucose,Bedsideon 02-09-2021 Glucose [Mass/Vol] 185 mg/dL High 70-100 [facility] Comment on above: Result Comment: Test performed by glucose meter. Results may be 10%-15% lower than serum/plasma values. (CLIA ID [id number]) Performed By: #### B GLU #### [address] [address] Glucose [Mass/Vol] 284 mg/dL High 70-100 [facility] Comment on above: Result Comment: Test performed by glucose meter. Results may be 10%-15% lower than serum/plasma values. (CLIA ID [id number]) Performed By: #### B GLU #### [address] [address] OPERATIVE REPORTOrdered By: 3m Scanning on 02-09-2021 [facility] Work Phone: Op Noteon 02-09-2021 Op Note [facility] Dictation: Topical Anesthesia Note Patient Name: Elizabeth Modi : 1940 Date of Procedure: 02/09/2021 Surgeon: Ammy Vicente M.D. Student Driving Instructor: Rachel Elder MD Anesthesia: Monitored Anesthesia Care [...] then created using a cystotome and utrata forceps.[place]-dissecti on and hydro-delineation were then performed. Phacoemulsification [...] or any other concerns. Operative Note Normal [facility] POCT GlucoseOrdered By: Gayatri Vicente on 02-09-2021 Glucose [Mass/Vol] 185 mg/dL High 70 - 100 mg/dL [facility] Work Phone: Comment on above: Test performed by gl ucose meter. Results may be 10%-15% lower than serum/plasma values. (CLIA ID [id number]) Interpretation and review of laboratory results Abnormal [facility] Work Phone: Test Performed by [employer], [address] [place] [address] [facility] Work Phone: [facility] Work Phone: Glucose [Mass/Vol] 284 mg/dL High 70 - 100 mg/dL [facility] Work Phone: Comment on above: Test performed by gl ucose meter. Results may be 10%-15% lower than serum/plasma values. (CLIA ID [id number]) Interpretation and review of laboratory results Abnormal [facility] Work Phone: Test Performed by [employer], [facility] [place] [address] [facility] Work Phone: [facility] Work Phone: Hemoglobin A1con 12-03-2020 Glucose [Mass/Vol] 194 mg/dL Normal [facility] Comment on above: Performed By: #### H BA1C #### [facility] Routine Lab [address] [place], [place] [id number] HbA1c (Bld) [Mass fraction] 8.4 % High 4.3-5.6 [facility] Comment on above: Performed By: #### H BA1C #### [facility] Routine Lab [address] [place], [place] [address] ECHOCARDIOGRAM LIMITED/FOLLO WUPon 11-13-2020 ECHOCARDIOGRAM LIMITED/FOLLOWUP ? Limited echocardiogram for [...] 06/08/2020, LV function has improved. Facility [facility] Patient Information Patient Name Elizabeth Modi [...] Role Read Date Dwayne Carrasco MD Echo [place] 11/13/2020 Left Heart Measurements LV - Systole [...] patient's inability to turn. Imaging system used: Catrachito. Exam Details Performed Procedure (more content not included)... Normal [facility] Hemoglobin A1con 09-10-2020 Glucose [Mass/Vol] 177 mg/dL Normal [facility] Comment on above: Performed By: #### H BA1C #### [facility] Routine Lab [address] [place], [place] [address] HbA1c (Bld) [Mass fraction] 7.8 % High 4.3-5.6 [facility] Comment on above: Performed By: #### H BA1C #### [facility] Routine Lab [address] [place], [place] [address] Beau 05-20-2020 CNPN Telephone (LUCRECIA) ELIZABETH MODI ([id number]) 1940 M Date Time Provider Department 05/20/20 [...] Encounter Status:Closed by ZOLTAN EWING on 05/20/20 [facility] CNPN Telephone ([employer]) ELIZABETH MODI ([id number]) 1940 M Date Time Provider Department 05/20/20 RYAN ALLEN During your visit today, we recorded the following information about you: Bren Santos 05/20/2020 2:52 PM Signed I have received a call from the daughter Angelic and she stated her father is in the hospital in [place] where he has had great toe removed [...] cancelled at this time. Maria Esther Gusman APRN.GURWINDER, GURWINDER 05/20/2020 3:45 PM Signed Noted. Thank you, Maria Esther Gusman APRN.GURWINDER Allergies As of Date: 05/20/2020 (No Known [...] Status:Closed by BREN SANTOS on 05/21/20 Normal [facility] PROGRESSon 05-18-2020 PROGRESS HNO ID: [id number] Author: Ryan Allen Service: ? Author Type: [...] - Hypothyroidism - PVD (peripheral vascular disease) ([facility]) - Renal mass PAST SURGICAL HISTORY Procedure [...] MG DAILY@0800 October 12, 2019 7:37am 10-12-2019 [facility] ([id number]) - gabapentin (NEURONTIN) 600 mg tablet Take [...] encounter diagnosis) (I73.9) PVD (peripheral vascular disease) (HCC) (E11.69) Type 2 diabetes mellitus with other specified complication, without long-term current use of insulin (HCC) (S91.302A) Open wound of left foot with [...] this point. Given the state of the [facility] emergency room at this junction it may be better to have him seen locally at [facility] and see if some antibiotic therapy at least overnight might be worth a try. Possible transfer from there would depend on his stability and the bed availability here at [facility] There are no Patient Instructions on file for this visit. Ryan Allen MD Normal [facility] Bas Metab 2000 Pnl SerPlon 1 07-15-2019 Anion gap [Moles/Vol] 13 mmol/L Normal 9-18 [facility] Comment on above: Order Comment: Speci men Type: BLOOD SPECIMEN Performed By: #### 2 4321-2 #### [facility] CLIA [id number] [address] [place] [address] Calcium [Mass/Vol] 9.8 mg/dL Normal 8.5-10.2 [facility] Comment on above: Order Comment: Speci men Type: BLOOD SPECIMEN Performed By: #### 2 4321-2 #### [facility] CLIA [id number] [address] [place] [address] Chloride [Moles/Vol] 102 mmol/L Normal 97-105 [facility] Comment on above: Order Comment: Speci men Type: BLOOD SPECIMEN Performed By: #### 2 4321-2 #### [facility] CLIA [id number] [address] [place] [address] CO2 [Moles/Vol] 24 mmol/L Normal 22-30 [facility] Comment on above: Order Comment: Speci men Type: BLOOD SPECIMEN Performed By: #### 2 4321-2 #### [facility] CLIA [id number] [address] [place] [address] Creatinine [Mass/Vol] 0.95 mg/dL Normal 0.73-1.22 [facility] Comment on above: Order Comment: Speci men Type: BLOOD SPECIMEN Performed By: #### 2 4321-2 #### [facility] CLIA [id number] [address] [place] [address] GFR/1.73 sq M.predicted MDRD (S/P/Bld) [Vol rate/Area] mL/min/{1.73_m2} Normal [facility] Comment on above: Order Comment: Speci [...] GFR. Performed By: #### 2 4321-2 #### [facility] CLIA [id number] [address] [place] [address] Glucose [Mass/Vol] 214 mg/dL High 74-99 [facility] Comment on above: Order Comment: Speci men Type: BLOOD SPECIMEN Result Comment: The [place] Diabetes Association (ADA) provides guidance for cutoff [...] Standards of Medical Care in Diabetes 2016, [place] Diabetes Association. Diabetes Care. 2016.39(Suppl 1). Performed By: #### 2 4321-2 #### [facility] CLIA [id number] [address] [place] [address] Potassium [Moles/Vol] 4.9 mmol/L Normal 3.7-5.1 [facility] Comment on above: Order Comment: Speci men Type: BLOOD SPECIMEN Performed By: #### 2 4321-2 #### [facility] CLIA [id number] [address] [place] [address] Sodium [Moles/Vol] 139 mmol/L Normal 136-144 [facility] Comment on above: Order Comment: Speci men Type: BLOOD SPECIMEN Performed By: #### 2 4321-2 #### [facility] CLIA [id number] [address] [place] [address] Urea nitrogen [Mass/Vol] 31 mg/dL High 9-24 [facility] Comment on above: Order Comment: Speci men Type: BLOOD SPECIMEN Performed By: #### 2 4321-2 #### [facility] CLIA [id number] [address] [place] [address] CBC (hemogram) Bld Autoon Erythrocyte distribution width (RBC) [Ratio] 12.8 % Normal 11.5-15.0 [facility] Comment on above: Order Comment: Speci men Type: BLOOD SPECIMEN Performed By: #### 5 8410-2 #### [facility] CLIA [id number] [address] [place] [address] Hematocrit (Bld) [Volume fraction] 43.5 % Normal 39.0-51.0 [facility] Comment on above: Order Comment: Speci men Type: BLOOD SPECIMEN Performed By: #### 5 8410-2 #### [facility] CLIA [id number] [address] [place] [address] Hemoglobin (Bld) [Mass/Vol] 14.1 g/dL Normal 13.0-17.0 [facility] Comment on above: Order Comment: Speci men Type: BLOOD SPECIMEN Performed By: #### 5 8410-2 #### [facility] CLIA [id number] [address] [place] [address] MCH (RBC) [Entitic mass] 29.5 pg Normal 26.0-34.0 [facility] Comment on above: Order Comment: Speci men Type: BLOOD SPECIMEN Performed By: #### 5 8410-2 #### [facility] CLIA [id number] [address] [place] [address] MCHC (RBC) [Mass/Vol] 32.4 g/dL Normal 30.5-36.0 [facility] Comment on above: Order Comment: Speci men Type: BLOOD SPECIMEN Performed By: #### 5 8410-2 #### [facility] CLIA [id number] [address] [place] [address] MCV (RBC) [Entitic vol] 91.0 fL Normal 80.0-100.0 [facility] Comment on above: Order Comment: Speci men Type: BLOOD SPECIMEN Performed By: #### 5 8410-2 #### [facility] CLIA [id number] [address] [place] [address] Nucleated RBC (Bld) [#/Vol] 10*3/uL Normal <0.01 [facility] Comment on above: Order Comment: Speci men Type: BLOOD SPECIMEN Performed By: #### 5 8410-2 #### [facility] CLIA [id number] [address] [place] [address] Platelet mean volume (Bld) [Entitic vol] 10.4 fL Normal 9.0-12.7 [facility] Comment on above: Order Comment: Speci men Type: BLOOD SPECIMEN Performed By: #### 5 8410-2 #### [facility] CLIA [id number] [address] [place] [address] Platelets (Bld) [#/Vol] 367 10*3/uL Normal 150-400 [facility] Comment on above: Order Comment: Speci men Type: BLOOD SPECIMEN Performed By: #### 5 8410-2 #### [facility] CLIA [id number] [address] [place] [address] RBC (Bld) [#/Vol] 4.78 10*6/uL Normal 4.20-6.00 [facility] Comment on above: Order Comment: Speci men Type: BLOOD SPECIMEN Performed By: #### 5 8410-2 #### [facility] CLIA [id number] [address] [place] [address] WBC (Bld) [#/Vol] 11.87 10*3/uL High 3.70-11.00 [facility] Comment on above: Order Comment: Speci men Type: BLOOD SPECIMEN Performed By: #### 5 8410-2 #### [facility] CLIA [id number] [address] [place] [address] Beau 05-15-2020 JONAS Telephone (AGVASACC) ELIZABETH MODI ([id number]) 1940 M Date Time Provider Department 05/15/20 [...] Allergies) Date Reviewed: 05/15/2020 Reviewed by: Sunshine (Pellet Post Inspector) Boozer - Fully Assessed Reason for Visit: Patient [...] MARIA ESTHER GUSMAN CNP on 05/19/20 Normal [facility] HGB A1Con 05-15-2020 Average glucose Estimated from glycated hemoglobin mass conc (Bld) 189 mg/dL Normal [facility] Comment on above: Order Comment: Speci men Type: BLOOD SPECIMEN Result Comment: eAG: (Estimated average glucose) is a calculated value from HgbA1c and is new accounts representative of the average blood glucose level in the last 2-3 month period. Performed By: #### H BA1C ####[facility] [id number] [place] [address] HbA1c (Bld) [Mass fraction] 8.2 % High 4.3-5.6 [facility] Comment on above: Order Comment: Speci men Type: BLOOD SPECIMEN Result Comment: Rick [place] Diabetes Association guidelines indicate that patients with HgbA1c in the range 5.7-6.4% are at increased risk for development of diabetes, and intervention by lifestyle modification may be beneficial. HgbA1c greater or equal to 6.5% is considered diagnostic of diabetes. Performed By: #### H BA1C ####[facility] [id number] [place] [address] HISTORY PHYSICALon 0 HISTORY PHYSICAL HNO ID: [id number] Author: Sunshine Harris Service: ? Author Type: [...] Below Knee Amputation (Hcc) Nonhealing Surgical Wound Subjective CHIEF COMPLAINT: PVD [...] Anxiety and depression - DM (diabetes mellitus) ([facility]) - Dyslipidemia - HTN (hypertension) - Hypothyroidism - PVD (peripheral vascular disease) ([facility]) PAST SURGICAL HISTORY Procedure Laterality Date - [...] MG DAILY@0800 October 12, 2019 7:37am 10-12-2019 [facility] ([id number]) Taking Yes gabapentin (NEURONTIN) 600 mg tablet [...] CP and palpitations. No h/o of CHF, MA, Cardiac Sx, cardiac stents, PPM/AICD. +HTN, HLD, [...] managed by PCP. no recent A1C in [facility], most recent BG check from 12/11/2019 was 126. will get A1C at [facility] Former Smoker- quit in 1989, 30 [...] 2020 TIME: 3:32 PM PAGER/CONTACT #: Normal [facility] PT Pnl PPPon 05-15-2020 INR Coag (PPP) [Relative time] 1.0 {INR} Normal 0.9-1.3 [facility] Comment on above: Order Comment: Speci men Type: BLOOD SPECIMEN Result Comment: Radha min K Antagonist (VKA) Therapeutic Range: INR 2 to 3 (Target INR of 2.5) Note: For patients treated with VKA drugs, such as warfarin, the [place] College of Chest Physicians 2012 Guideline recommends [...] to 3.5 (target INR of 3). Brando GH, et al. Chest 2012, 141:7S-47S Dada CHAVEZ et al. [facility] 2017, 70: 252-289 Performed By: #### 3 4528-0 #### [facility] CLIA [id number] [address] [place] [address] PT Coag (PPP) [Time] 10.6 s Normal 9.7-13.0 [facility] Comment on above: Order Comment: Speci men Type: BLOOD SPECIMEN Performed By: #### 3 4528-0 #### [facility] CLIA [id number] [address] [place] [address] PT EDon 05-13-2020 PT ED HNO ID: [id number] Author: Jeni SantiagoRn) KAVIN Shoemaker Service: ? Author Type: Registered [...] RN In Department: [place] SURGERY OR Normal [facility] PROGRESSon 04-29-2020 PROGRESS HNO ID: [id number] Author: Ryan Allen Service: ? Author Type: Physician Type: Progress Notes Filed: 04/29/2020 7:08 PM Note Text: This note was partially generated using DoYouRemember voice recognition system. I spent 15+ minutes in the visit, with more than 50% of the total zmry-ks-qizh time of the visit in counseling / [...] patient is currently taking aspirin: Yes Normal [facility] CNOVon 04-28-2020 CNOV Office Visit (AGVASACC) ELIZABETH MODI ([id number]) 1940 M Date Time Provider Department 04/28/20 11:00 AM RYAN ALLEN During your visit today, we recorded the following information about you: Temperature Blood pressure Weight Height 80 degrees 134/60 88 kg 1.778 m Ryan Allen MD 04/29/2020 7:08 PM Signed This note was partially generated using DoYouRemember voice recognition system. I spent 15+ minutes in the visit, with more than 50% of the total vviy-al-ojlf time of the visit in counseling / [...] Status:Closed by RYAN ALLEN MD on 04/29/20 [facility] Beau 04-28-2020 GURWINDERN Telephone (AGVASACC) ELIZABETH MODI ([id number]) 1940 M Date Time Provider Department 04/28/20 RYAN ALLEN During your visit today, we recorded the following information about you: Maria Esther Gusman APRN.GURWINDER BECERRA 04/28/2020 1:53 PM Signed Orders signed. Thank you, Maria Esther Gusman APRN.GURWINDER [facility] 04/30/2020 2:25 PM Addendum I have scheduled the patient for a Left Leg Aortogram with runoffs, possible intervention possible left arm approach on 05/25/20 @ 1030am with an 830 am arrival time. Pretesting is on 05/15/20 @ 1120am [facility]- no fasting is required Covid is 05/23/20 @ 1130 am at [facility][note 3] Post OP is 06/23/20 @ 10 am with Devin Mailed 04/30/20 raulfrancie Lambert has been notified of dates and times. Allergies As of Date: 04/28/2020 (No Known Allergies) Date Reviewed: 04/28/2020 Reviewed by: Luke Alfaro) Austin - Fully Assessed Reason for Visit: Schedule Surgery [1330] Primary Visit Diagnosis:PVD (peripheral vascular disease) ([facility]) [I73.9] Order(s):SURGICAL REQUEST - ELECTIVE (01/2020) [7653288] Order #: [id number]: 1 HANDP FOR SURGERY [V3391SEW] Order #: [id number] PRE-PROCEDURE AND PRE-OPERATIVE COVID [SQPOCOVD] Order #: [id number] FUTURE CBC [SQCBC] Order #: [id number] FUTURE BASIC METABOLIC PNL [SQBMP] Order #: [id number] FUTURE PROTHROMBIN TIME/PT [SQPT] Order #: [id number] FUTURE ECG COMPLETE [ECG01] Order #: [id number] FUTURE Prescriptions as of 04/28/2020 Sig: ASPIRIN [...] by MARIA ESTHER GUSMAN CNP on 04/28/20 [facility] CNOVon 04-21-2020 [facility] Office Visit (AKURFSerene ) ELIZABETH MODI ([id number]) 1940 M Date Time Provider Department 04/21/20 1:30 PM YADI WHITE During your visit today, we recorded the following information about you: Weight Height 88 kg 1.778 m Yadi White DO, MBA 04/21/2020 3:13 PM Signed ?? [facility] [place] [facility] LOCATION: [address] [place] [address] NEW CONSULT VISIT PATIENT INFO: Elizabeth Modi [...] MG DAILY@0800 October 12, 2019 7:37am 10-12-2019 [facility] ([id number]) gabapentin (NEURONTIN) 600 mg tablet Take 600 [...] with more than 50% of the total krzm-nw-qjmz time of the visit in counseling / coordination of care. Yadi White DO MBA Letter to: Dexter Reyes MD Referring Provider: DEXTER REYES CHI [[id number]] Allergies As of Date: 04/21/2020 (No Known Allergies) Date Reviewed: 04/21/2020 Reviewed by: Yadi White - Fully Assessed Reason for Visit: Kidney Problem [61] Visit Diagnosis:Other specified disorders of kidney and ureter [N28.89] Order(s):CT KIDNEY WO/W IVCON [1842884] Order #: [id number] FUTURE iv contrast (will be provided with [...] Status:Closed by YADI WHITE on 04/21/20 Normal [facility] PROGRESSon 04-21-2020 PROGRESS HNO ID: [id number] Author: Yadi White Service: ? Author Type: Physician Type: Progress Notes Filed: 04/21/2020 3:13 PM Note Text: ?? [facility] [place] [facility] LOCATION: [address] [place] [address] NEW CONSULT VISIT PATIENT INFO: Elizabeth Modi [...] MG DAILY@0800 October 12, 2019 7:37am 10-12-2019 [facility] ([id number]) gabapentin (NEURONTIN) 600 mg tablet Take 600 [...] with more than 50% of the total ajre-zz-mapt time of the visit in counseling / coordination of care. Yadi White DO MBA Letter to: Dexter Reyes MD [facility] CNOVon 03-31-2020 CNOV Office Visit (AGVASACC) ELIZABETH MODI ([id number]) 1940 M Date Time Provider Department 03/31/20 11:00 AM RYAN ALLEN During your visit today, we recorded the following information about you: Pulse Respiration Blood pressure Weight 78/minute 18/minute 124/70 88 kg Height 1.778 m Ryan Allen MD 03/31/2020 12:50 PM Signed I spent 15+ minutes in the visit, with more than 50% of+ the total rnsn-oc-cxzk time of the visit in counseling / coordination of care. This note partially generated using DoYouRemember voice recognition system. Mr. Modi and his daughter were seen in the office today for follow-up of his peripheral vascular disease. He's feeling up a complicated wound in the right below-knee stump but also has a left great toe nonhealing wound. I believe this is being followed by the bilingual sales representative or the wound care center in the [facility]. He also notes that the prosthetic company is having trouble getting appropriate authorization for his prosthesis. Since the patient left I have call that office, [facility] [employer]. We have left a message from then [...] appropriate authorization for were reviewed needs from [employer]. He has had a urologist in the past but can't remember the name in the [facility]. I would refer to the primary care office if they feel appropriate urologist is available locally in this patient. If not we will be happy to refer to a urologist in the [facility]. Hopefully within the next few weeks or [...] runoffs Primary Visit Diagnosis:PVD (peripheral vascular disease) ([facility]) [I73.9] Other Visit Diagnoses:Below knee amputation ([facility]) [S88.119A] Type 2 diabetes mellitus with other specified complication, without long-term current use of insulin ([facility]) [E11.69] Nonhealing nonsurgical wound [T14.8XXA] Prescriptions as [...] Date 03/31/2020 Noted Resolved Gangrene of foot ([facility]) [I96] 08/21/2019 Diabetes (HCC) [E11.9] 08/21/2019 HTN (hypertension) [I10] 08/21/2019 Dyslipidemia [E78.5] 08/21/2019 Hypothyroidism [E03.9] 08/21/2019 Malnutrition of moderate degree (HCC) [E44.0] 08/22/2019 PVD (peripheral vascular disease) (HCC) [I73.9] 12/07/2019 Below knee amputation (HCC) [S88.119A] 12/07/2019 Nonhealing surgical wound [T81.89XA] 12/09/2019 Letter Text Encounter Status:Closed by RYAN ALLEN MD on 03/31/20 [facility] PROGRESSon 03-31-2020 PROGRESS HNO ID: [id number] Author: Ryan Allen Service: ? Author Type: Physician Type: Progress Notes Filed: 03/31/2020 12:50 PM Note Text: I spent 15+ minutes in the visit, with more than 50% of+ the total yaqf-ip-khbo time of the visit in counseling / coordination of care. This note partially generated using DoYouRemember voice recognition system. Mr. Modi and his daughter were seen in the office today for follow-up of his peripheral vascular disease. He's feeling up a complicated wound in the right below-knee stump but also has a left great toe nonhealing wound. I believe this is being followed by the bilingual sales representative or the wound care center in the [facility]. He also notes that the prosthetic company is having trouble getting appropriate authorization for his prosthesis. Since the patient left I have call that office, [facility] [employer]. We have left a message from then [...] appropriate authorization for were reviewed needs from [employer]. He has had a urologist in the past but can't remember the name in the [facility]. I would refer to the primary care office if they feel appropriate urologist is available locally in this patient. If not we will be happy to refer to a urologist in the [facility]. Hopefully within the next few weeks or [...] is taking statin and aspirin medications. Normal [facility] CNPYessenia 03-04-2020 GURWINDERN Telephone (AGChina Auto Rental HoldingsACC) LYELIZABETH ([id number]) 1940 M Date Time Provider Department 03/04/20 RYAN ALLEN During your visit today, we [...] Encounter Status:Closed by LUDIVINA WHITFIELD on 03/04/20 [facility] CTA ABD/PEL/LOWER EXT WO/W I VCONon 02-28-2020 CTA ABD/PEL/LOWER EXT WO/W IVCON Final Report DATE OF EXAM: Feb 28 2020 4:00PM [facility] 0465 - CTA ABD/PEL/LOWER EXT WO/W [...] renal protocol CT or MRI. 2. Right ixmsy-lrh-tcap amputation. No subcutaneous fat stranding or fluid collection. Other chronic findings, as above. Pharmacy Informaticist: ONEL Transcribe Date/Time: Mar 02 2020 2:59P Dictated by : ANDRE BUI MD This examination was interpreted and the report reviewed and electronically signed by: ANDRE BUI MD on Mar 02 2020 3:31PM EST Normal [facility] CNOVon 02-13-2020 CNOV Office Visit (AGVASACC) ELIZABETH MODI ([id number]) 1940 M Date Time Provider Department 02/13/20 1:30 PM MARIA ESTHER GUSMAN (HAND TIER, ADVERTISING TRAFFIC MANAGER)AGVASACC During your visit today, we recorded the following information about you: Pulse Respiration Blood pressure Weight 76/minute 18/minute 118/64 88 kg Height 1.778 m Maria Esther Gusman APRN.GURWINDER, ADVERTISING TRAFFIC MANAGER 02/13/2020 4:20 PM Signed Elizabeth Modi 79 [...] He has not been in contact with [facility] in some time, as he was advised to wait until cleared from the wound vac. Additionally, he reports that he's been seeing a boarding specialist for the wounds on his left [...] Stable post op; OK to follow-up with [employer] for RLE prosthetic; Will discuss with Dr. Allen plan for evaluation/treatment of LLE with continued wounds. PLAN: Will proceed with CTA to further evaluation LLE at this time. Pt encouraged to call with any questions, problems, concerns, or changes. The patient is currently taking a statin: Yes The patient is currently taking aspirin: Yes Maria Esther Gusman, HAND TIER.ADVERTISING TRAFFIC MANAGER Referring Provider: SELF [200] Allergies As of [...] [I99.8] Order(s):CTA ABD/PEL LOWER EXTREM WO/W IVCON [3299220] Order #: [id number] FUTURE iv contrast (will be provided with [...] EachRfl: 0 CREATININE BLD [SQCRET] Order #: [id number] FUTURE Prescriptions as of 02/13/2020 Sig: INSULIN [...] by MARIA ESTHER GUSMAN CNP on 02/13/20 [facility] PROGRESSon 02-13-2020 PROGRESS HNO ID: [id number] Author: Maria Esther (End Trimmer Gurwinder) GURWINDER Gusman Service: ? Author Type: Nurse [...] He has not been in contact with [facility] in some time, as he was advised to wait until cleared from the wound vac. Additionally, he reports that he's been seeing a boarding specialist for the wounds on his left [...] Stable post op; OK to follow-up with [facility]CHANNEL for RLE prosthetic; Will discuss with Dr. Allen plan for evaluation/treatment of LLE with continued wounds. PLAN: Will proceed with CTA to further evaluation LLE at this time. Pt encouraged to call with any questions, problems, concerns, or changes. The patient is currently taking a statin: Yes The patient is currently taking aspirin: Yes Maria Esther Gusman APRN.GURWINDER [facility] Beau 02-05-2020 JONAS Telephone (LUCRECIA) ELIZABETH MODI ([id number]) 1940 M Date Time Provider Department 02/05/20 RYAN ALLEN During your visit today, we recorded the following information about you: Luke Pérez LPN 02/05/2020 10:51 AM Signed Millie from [facility] called stating that there has been [...] 02/05/2020 11:24 AM Signed Relayed information to [facility] nurse. Acknowledged new order for wet [...] Status:Closed by LUKE PÉREZ LPN on 02/05/20 [facility] CNOVon 01-08-2020 CNOV Office Visit (AGVASACC) ELIZABETH MODI ([id number]) 1940 M Date Time Provider Department 01/08/20 3:30 PM RYAN ALLEN During your visit today, we recorded the following information about you: Pulse Respiration Blood pressure Weight 78/minute 18/minute 126/70 88.9 kg Height 1.778 m Ryan Allen MD 01/08/2020 4:01 PM Signed This note was partially generated using DoYouRemember voice recognition system. Is a postop visit [...] Status:Closed by RYAN ALLEN MD on 01/08/20 [facility] Beau 01-08-2020 GURWINDERN Telephone ([employer]) ELIZABETH MODI ([id number]) 1940 M Date Time Provider Department 01/08/20 [facility] During your visit today, we recorded the following information about you: Luke Pérez LPN 01/08/2020 1:18 PM Signed Millie [facility] nurse called to let us know that they are extending the home care to once a week x 5 weeks. Still currently has wound vac. Drainage and blood noted per nurse. Depth of 0.25mm. Maria Esther Gusman APRN.GURWINDER BECERRA 01/08/2020 1:42 PM Signed Noted. Thank you, Maria Esther Gusman APRN.ADVERTISING TRAFFIC MANAGER Allergies As of Date: 01/08/2020 (No Known [...] MARIA ESTHER GUSMAN CNP on 01/08/20 Normal [facility] PROGRESSon 01-08-2020 PROGRESS HNO ID: [id number] Author: Ryan Allen Service: ? Author Type: Physician Type: Progress Notes Filed: 01/08/2020 4:01 PM Note Text: This note was partially generated using DoYouRemember voice recognition system. Is a postop visit [...] he continues to make progress with wound. [facility] CASE MANAGEMon 12-11-2019 CASE MANAGEM HNO ID: [id number] Author: Tami Izquierdo) KAVIN Patricio Service: Care Management Author Type: Registered Nurse Type: Care Mgt Progress Note Filed: 12/11/2019 3:28 PM Note Text: CARE MANAGEMENT DISCHARGE NOTE SERVICE DATE: 12/11/2019 SERVICE TIME: 3:27 PM LOS: 2 days Admission Date: 12/09/2019 DISCHARGE ARRANGEMENT (list agency and phone number) Discharge Arrangement: Home Residential Care: Nursing;OT;PT Provider Name: Mumtaz [facility] Phone: . CAREGIVER ASSESSMENT: Caregiver is ready, willing and able to meet the patient's needs as recommended by the inter-professional team:: Yes Does the patient have an acute stroke diagnosis, or has the patient had a stroke during this admission?: No Patient's transition needs and plan for meeting these needs: Home with [facility]. HANDOFF COMMUNICATION: TRANSPORTATION ARRANGEMENTS: Transportation Arrangements: Car ADDITIONAL CONTACT RESOURCES: Pts wound vac approved through [facility]. SIGNATURE: Tami Patricio RN PATIENT NAME: Elizabeth Modi DATE: December 11, 2019 TIME: 3:27 PM PAGER/CONTACT #: [phone] [facility] CONSULT PROGon 12-11-2019 CONSULT PROG HNO ID: [id number] Author: Adali Murry Service: Wound Care Team Author Type: Nurse Specialist Type: Consult Progress Note Filed: 12/11/2019 2:39 PM Note Text: WOUND CARE CONSULT HAND TIER NOTE SERVICE DATE: 12/11/2019 SERVICE TIME: 1315 TIME SPENT (minutes): 45 REASON FOR CONSULT: Eval R BKA, wound vac change CHIEF COMPLAINT: c/o open wound to R lateral BKA Subjective HISTORY OF PRESENT ILLNESS: Mr. Modi is a 79 year old male who is seen today with S Gasper Wound/tennis net maker, and presented to hospital w/ R BKA [...] found under the Get Images tab on [employer]. Photos are uploaded by the wound rn transitional care and may not be immediately available for viewing. Contact the wound and ostomy care department with questions. SIGNATURE: Adali Murry APRN.ICE CREAM MAKER PATIENT NAME: Elizabeth Modi DATE: December 11, 2019 TIME: 2:24 PM CONTACT#: [id number] Normal [facility] Glucose Meteron 12-11-2019 Glucose [Mass/Vol] 126 mg/dL High 70-99 [facility] Comment on above: Result Comment: KAVIN N OTIFIED Performed By: #### M AG #### [place] [address] OPERATIVE NOon 12-11-2019 OPERATIVE NO HNO ID: [id number] Author: Ryan Allen Service: ? Author Type: Physician Type: Operative Report Filed: 12/11/2019 1:51 PM Note Text: [facility] - Operative Report ELIZABETH MODI : 1940 AGE: 79. SEX: M PATIENT TYPE: I HOSP SVC: KEENAN LOCATION: [id number] ATTENDING PHYSICIAN: RYAN ALLEN CSN NUMBER: [id number] DATE OF SURGERY/PROCEDURE: 12/09/2019 INCISION/PROCEDURE START TIME: 10:54 AM INCISION CLOSE/PROCEDURE END TIME: 11:10 AM PREOPERATIVE DIAGNOSIS: Nonhealing wound, status post right below-knee amputation. POSTOPERATIVE DIAGNOSIS: Nonhealing wound, status post right below-knee amputation. SURGEON: Ryan Allen MD, FACS VERTICAL MILL OPERATOR: 1. Sunny Brito MD. 2. Mara Godinez SA. SURGERY/PROCEDURE: Irrigation and debridement of right lower extremity wound with placement of wound VAC. ANESTHESIA: General HISTORY: This is a 79-year-old gentleman, who has undergone multiple procedures with the Vascular Service at [facility]. Ultimately, unfortunately this has terminated in a below-knee amputation. In his followup, he was seen at the [facility] office in [place] by Dr. Gordo Figueroa and it was [...] satisfactory postoperative condition. Ryan Allen MD, FACS RGN:[id number] /[id number] cc:Macho Reyes MD [facility] PLAN OF CAREon 12-11-2019 PLAN OF CARE HNO ID: [id number] Author: Olga Parekh (Religious Leader) Service: ? Author Type: ? Type: Plan of Care Filed: 12/11/2019 11:33 AM Note Text: RADIATION PROTECTION TECHNICIAN BEDSIDE DELIVERY SURVEY 1. Patient to use [facility] Bedside Delivery - YES Insurance Information as follows: 2. Insurance card on file - YES 3. Credit card for payment - N/A Please call pharmacy bedside delivery at [phone] or [phone] if patient would like medications filled and delivered prior to discharge. Olga Parekh (Religious Leader) [facility] PROGRESSon 12-11-2019 PROGRESS HNO ID: [id number] Author: Rohan Duran DO Service: Vascular Surgery [...] and on Weekends and Holidays, please page [phone] if in ICU or [phone] if on RNF. Subjective SUBJECTIVE: NAEON. Did [...] 0659 12/11/19 07 - 12/12/19 0659 Shift 9292-1881 0717-0620 1285-2924 24 Hour Total 1906-0511 2863-5035 7950-0828 24 Hour Total INTAKE Shift Total OUTPUT Urine 877 203 5499 Void (ml) 675 813 3761 Drains 0 0 Negative Pressure: Output (mL) 0 0 # of BMs Number of BMs 1 x 1 x Shift Total 364 417 8899 Weight (kg) 88.2 88.2 88.2 88.2 88.2 [...] Allen SIGNATURE: Rohan Duran DO PATIENT NAME: lEizabeth Modi DATE: December 11, 2019 TIME: 6:18 AM Vascular AND Thoracic Surgery Service Pager: For questions or concerns Mon-Mon 6a-5p please page [phone]. After 5pm and on Weekends and Holidays, please page [phone] if in ICU or [phone] if on RNF. [facility] PT EDon 12-11-2019 PT ED HNO ID: [id number] Author: Isac Navarro (Pharmacist) Service: Pharmacy Author [...] Cap Generic drug: Cholecalciferol (Vitamin D3) Normal [facility] THERAPY NTon 12-11-2019 THERAPY NT HNO ID: [id number] Author: Maricarmen SantiagoOtr/Vickie Good Service: Occupational Therapy Author Type: Occupational Therapist Type: Therapy (PT/OT/Speech/Resp) Filed: 12/11/2019 3:31 PM Note Text: Occupational Therapy Evaluation SERVICE DATE: 12/11/2019 SERVICE TIME: 1435 to 1459 ROOM: [place] [address] Recommended Discharge Disposition: Home OT Recommended Discharge [...] living (ADL) Interventions Provided: Evaluation $ Evaluation-Moderate (80595) Billed Units: 1 unit OT Evaluation Moderate [...] December 11, 2019 TIME: 3:28 PM Normal [facility] THERAPY NT HNO ID: [id number] Author: Marilyn (Pt) Mark Service: Physical Therapy Author Type: Physical Therapist Type: Therapy (PT/OT/Speech/Resp) Filed: 12/11/2019 2:48 PM Note Text: Physical Therapy Evaluation SERVICE DATE: 12/11/2019 SERVICE TIME: 1341 to 1408 ROOM: [place] [address] Recommended Discharge Disposition: Home PT Recommended Discharge [...] Difficulty walking-musculoskeleta l Interventions Provided: Evaluation;Therapeutic Activity (04706) $ Evaluation-Moderate (82768) Billed Units: 1 unit History and examination of body systems see assessment section above. This patient?s clinical presentation is evolving. The patient required a moderate complexity evaluation. Therapeutic Activity (73364) Treatment Minutes: 11 1 unit Skilled Intervention(s): [...] able to maintain balance while turning head/trunk -HLM: 3: Sit at edge of bed Please see discipline specific clinical documentation flowsheet for complete details for this therapy evaluation/treatment. SIGNATURE: Marilyn Flores PT PATIENT NAME: Elizabeth Modi DATE: December 11, 2019 TIME: 2:44 PM Normal [facility] Basic Metabolic Panelon 11-18 Anion gap [Moles/Vol] 13 mmol/L Normal 9-18 [facility] [place] Comment on above: Performed By: #### C BC1 #### [address] [address] Calcium [Mass/Vol] 9.0 mg/dL Normal 8.5-10.2 [facility] Comment on above: Performed By: #### C BC1 #### [facility] [address] [place], [place] [address] Chloride [Moles/Vol] 100 mmol/L Normal 97-105 [facility] Comment on above: Performed By: #### C BC1 #### [facility] [address] [place], [place] [address] CO2 Blood 25 mmol/L Normal 22-30 [facility] Comment on above: Performed By: #### C BC1 #### [facility] [address] [place], [place] [address] Creatinine [Mass/Vol] 1.14 mg/dL Normal 0.73-1.22 [facility] [place] Comment on above: Performed By: #### C BC1 #### [facility] [address] [place], [place] [address] Glucose [Mass/Vol] 113 mg/dL High 74-99 [facility] Comment on above: Result Comment: The [place] Diabetes Association (ADA) provides guidance for cutoff [...] Standards of Medical Care in Diabetes 2016; [place] Diabetes Association. Diabetes Care. 2016;39(Suppl 1). Performed By: #### C BC1 #### [facility] [address] [place], [place] [address] Potassium [Moles/Vol] 4.1 mmol/L Normal 3.7-5.1 [facility] [place] Comment on above: Performed By: #### C BC1 #### [address] [address] Sodium [Moles/Vol] 138 mmol/L Normal 136-144 [facility] Comment on above: Performed By: #### C BC1 #### [facility] [address] [place], [place] [address] Urea nitrogen [Mass/Vol] 22 mg/dL Normal 9-24 [facility] Comment on above: Performed By: #### C BC1 #### [address] [address] CASE MGT INIT ASSESon 2019 CASE MGT INIT [facility] HNO ID: [id number] Author: Tami SantiagoRn) KAVIN Patricio Service: Care Management Author Type: Registered Nurse Type: Care Mgt Initial Assessment Filed: 12/10/2019 10:48 AM Note Text: CARE MANAGEMENT: ASSESSMENT AND DISCHARGE PLAN SERVICE DATE: December 10, 2019 SERVICE TIME: 10:47 AM PRIMARY CARE PHYSICIAN: Dexter Reyes MD ADMISSION STATUS: Inpatient Needs Prior to Discharge: Home Care Order MEDICAL: [facility] 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 Last discharge within 30 days: No Advance Directive: Current Advance Directive: Health Care Power of Criminal Justice Instructor In Chart: No Corporate Executive Chef Attempted to Assist with AD Completion: No [...] Services or Home Care?: Home Health Care Agency([facility]) Equipment Prior to Admission: Wheelchair;Other: See Comment(Electric scooter and slide board) SOCIAL: Living Arrangements: Home Lives With: Daughter Financial Resources: RetiredPrimary Contact: Extended Emergency Contact Information Primary Emergency Contact: LinetteAngelic Mobile Relation: Daughter Supportive Patient Contact:: Yes [...] meeting these needs: Home with family and [facility]. Patient's perception of need for this admission: . Medication Adherance I am convinced of the importance of my prescription medication: 0 - Agree Mostly I worry that my prescription medication will do more harm than good to me : 0 - Disagree Mostly I feel financially burdened by my ekw-ov-jjyyju expenses for my prescription medication:: 0 - Disagree Somewhat Risk Score: 0 Patient is categorized as: Low risk < 2 Are you interested in bedside delivery of your medications? No Is Patient Psychosocially Complex?: No ASSESSMENT AND PLAN: Medical Needs: Medical Needs: Two or more chronic diseases Psychosocial Needs: Psychosocial Needs: None FREEDOM OF CHOICE EXPLAINED: [place] of Choice Given: Yes(Pt would like to resume [facility] with [facility].) POTENTIAL TRANSITION PLANS Home Care Spoke with pt at the bedside. Pt states that he has been staying with his daughter. Active with [facility]. Plan for pt to return home with [facility]. Pt will need wound vac at d/c- script placed on chart to be signed. Family to transport home when medically stable. Will follow. SIGNATURE: Tami Patricio RN PATIENT NAME: Elizabeth Modi DATE: December 10, 2019 TIME: 10:47 AM PAGER/CONTACT #: [phone] Normal [facility] Hemogramon 12-10-2019 Erythrocyte distribution width (RBC) [Ratio] 14.1 % Normal 11.6-14.4 [facility] Comment on above: Performed By: #### P 8 #### [place] [address] Hematocrit (Bld) [Volume fraction] 38.9 % Low 40.1-51.0 [facility] Comment on above: Performed By: #### P 8 #### [place] [address] Hemoglobin (Bld) [Mass/Vol] 12.3 g/dL Low 13.7-17.5 [facility] Comment on above: Performed By: #### P 8 #### [facility] [address] [place] [address] MCH (RBC) [Entitic mass] 27.8 pg Normal 25.7-32.2 [facility] Comment on above: Performed By: #### P 8 #### [facility] [address] [place] [address] MCHC (RBC) [Mass/Vol] 31.6 % Low 32.3-36.5 [facility] [place] Comment on above: Performed By: #### P 8 #### [facility] [address] [place] [address] MCV (RBC) [Entitic vol] 88.0 fL Normal 83.2-95.6 [facility] Comment on above: Performed By: #### P 8 #### [facility] [address] [place] [address] Platelet mean volume (Bld) [Entitic vol] 10.5 fL Normal 8.7-12.0 [facility] Comment on above: Performed By: #### P 8 #### [facility] [address] [place] [id number] Platelets (Bld) [#/Vol] 285 thou/cmm Normal 141-365 [facility] Comment on above: Performed By: #### P 8 #### [facility] [address] [place] [address] RBC (Bld) [#/Vol] 4.42 mil/cmm Low 4.63-6.08 [facility] Comment on above: Performed By: #### P 8 #### [place] [address] RDW SD 45.4 fl Normal 36.1-45.8 [facility] Comment on above: Performed By: #### P 8 #### [facility] [address] [place] [address] WBC (Bld) [#/Vol] 9.86 thou/cmm High 4.23-9.07 [facility] Comment on above: Performed By: #### P 8 #### [place] [address] MDRD GFRon 12-10-2019 GFR/1.73 sq M predicted among non-blacks MDRD (S/P/Bld) [Vol rate/Area] mL/min/{1.73_m2} Normal >60mL/min/1 .73m2 [facility] Comment on above: Result Comment: If t he patient is , multiply the result by 1.210. Performed By: #### M AG #### [facility] [address] [place] [address] PLAN OF CAREon 12-10-2019 PLAN OF CARE HNO ID: [id number] Author: Isac Navarro (Pharmacist) Service: Pharmacy Author [...] medication history: Yes Reconciliation completed? Yes All SHANK ARCHER medications addressed by LIP Additional comments: ? Spoke with patient's daughter and reviewed dispensing data of [facility] ? Patient receives all acute meds from [facility]; gets some maintenance meds from [facility] by mail ? Patient has been hospitalized for an extended period this spring, skewing refill data ? Has recently begun using Humalog--discontinued most oral hypoglycemics at that time (see below). Continues using metformin ? Augmentin-875 begun 12-04-2019. This is/was a 14-day course of therapy ? Patient is ordered to use KCl 20mEq BID but has only been using this once daily SHANK ARCHER Paged Gen Surgery (2123) about these findings Qeyar-oy-Gmvyjblxh Medication List Adjustments: Medication Regimen Changes: Gabapentin [...] Allergies: ALLERGIES No Known Allergies Preferred Pharmacy: [facility] Current SHANK ARCHER Medications: Prior to Admission medications as of [...] PHARMACIST December 10, 2019 2:15 PM Normal [facility] PROGRESSon 12-10-2019 PROGRESS HNO ID: [id number] Author: Rohan Duran DO Service: Vascular Surgery [...] 2174 if on RNF. Subjective SUBJECTIVE: NAEON. Tolerating [...] kg/m? O2 Therapy: Room Air IANDO: Date 12/09/19699 - 12/10/19 0659 12/10/[address] - 12/11/19 0659 Shift 4727-6405 6360-2372 8445-0258 24 Hour Total 7043-3309 3474-1821 1837-4748 24 Hour Total INTAKE IV 400 400 OR Crystalloid intake (mL) 300 300 Volume (mL) (lactated ringers infusion) 100 100 Shift Total 400 400 OUTPUT Urine 155 853 8417 Void (ml) 436 146 3746 Shift Total 816 101 6041 Weight (kg) 88.2 88.2 88.2 88.2 88.2 [...] ICU or 2174 if on RNF. Normal [facility] ANES [place] 12-09-2019 ANES POST HNO ID: [id number] Author: Sal Ochoa Service: Anesthesiology Author Type: [...] 09, 2019 TIME: 11:41 AM PAGER/CONTACT #: Mela [facility] ANES PREOPon 12-09-2019 ANES PREOP HNO ID: [id number] Author: Sal Ochoa Service: Anesthesiology Author Type: [...] File Prior to Encounter Medication Sig - ttxzq-3q-lpc-epa-fish oil-D3 667-250 mg-unit cap Take 1 tablet [...] December 09, 2019 TIME: 9:05 AM CSN: [id number] [facility] BRIEF OP NOTon 12-09-2019 BRIEF OP NOT HNO ID: [id number] Author: Sunny Brito Service: Vascular Surgery Author [...] BRIEF OPERATIVE / PROCEDURE NOTE LOG ID: [id number] SURGERY/PROCEDURE DATE: 12/09/2019 INCISION/PROCEDURE START TIME: 10:54 AM INCISION CLOSE/PROCEDURE END TIME: 11:10 AM SURGEON(S)/PROCEDURALI ST(S) AND VERTICAL MILL OPERATOR(S): Surgeon(s) and Role: * Ryan Allen - Primary * Sunny Brito - Resident - Assisting [employer]: Mara Godinez SA SURGERY/PROCEDURE(S): irrigation and debridement right lower extremity wound, placement of wound vac ANESTHESIA: General FINDINGS: draining right lower extremity wound ESTIMATED BLOOD LOSS: 2 mls SPECIMENS: debrided tissue COMPLICATIONS: None PRE-OP/PRE-PROCEDURE DIAGNOSIS: right lower extremity wound POST-OP/POST-PROCEDURE DIAGNOSIS: Same as Preop SIGNATURE: Sunny Brito MD PATIENT NAME: Elizabeth Modi DATE: December 09, 2019 TIME: 11:45 AM PAGER/CONTACT #: Normal [facility] Cult and Smr CAROLINE and AERon 0 12-09-2019 Cult and Smr CAROLINE and AER Test performed at [facility] Moderate Mixed skin javier. No anaerobic organisms cultured Few Gram positive cocci Few Polymorphonuclear leukocytes Normal [facility] Comment on above: Performed By: #### P 8 #### [place] [address] HISTORY PHYSICALon 0 HISTORY PHYSICAL HNO ID: [id number] Author: Sunny Brito Service: Vascular Surgery Author [...] , Rfl: , 12/08/2019 at Unknown time iufrb-5e-cni-epa-fish oil-D3 667-250 mg-unit cap, Take 1 tablet [...] 2019 TIME: 10:14 AM PAGER/CONTACT #: [phone] [facility] NURSING PROGon 12-09-2019 NURSING PROG HNO ID: [id number] Author: Dakota (Rn) KAVIN Rodriguez Service: ? Author Type: Registered Nurse Type: Nursing Progress Note Filed: 12/09/2019 12:59 PM Note Text: FBG done by Belkis VALE [facility] PROGRESSon 12-07-2019 PROGRESS HNO ID: [id number] Author: Gordo Figueroa Service: ? Author Type: [...] Outpatient Medications Medication Sig Dispense Refill - bexgm-3s-eem-epa-fish oil-D3 667-250 mg-unit cap Take 1 tablet [...] up with us next Monday at the [facility]. Gordo Figueroa MD [facility] 12-06-2019 [facility] Office Visit (AGMIL) ELIZABETH MODI ([id number]) 1940 M Date Time Provider Department 12/06/19 11:30 AM GORDO FIGUEROAMISerene During your visit today, we recorded the [...] Outpatient Medications Medication Sig Dispense Refill - lenph-7h-kqi-epa-fish oil-D3 667-250 mg-unit cap Take 1 tablet [...] up with us next Monday at the [facility]. Gordo Figueroa MD Referring Provider: SELF [200] Allergies As of Date: 12/06/2019 (No Known Allergies) Date Reviewed: 12/06/2019 Reviewed by: Ryan Allen - Fully Assessed Reason for Visit: Peripheral Vascular Disease (PVD) [2401] Cmt: Elizabeth is post op 09/05/19 Revision Rt BKA Primary Visit Diagnosis:PVD (peripheral vascular disease) (HCC) [I73.9] Other Visit Diagnosis:Below knee amputation ([facility]) [S88.119A] Prescriptions as of 12/06/2019 Sig: OMEGA-3S 667 LM-JXE-OUT-FISH * Take 1 tablet by mouth once [...] Date 12/06/2019 Noted Resolved Gangrene of foot ([facility]) [I96] 08/21/2019 Diabetes (HCC) [E11.9] 08/21/2019 HTN (hypertension) [I10] 08/21/2019 Dyslipidemia [E78.5] 08/21/2019 Hypothyroidism [E03.9] 08/21/2019 Malnutrition of moderate degree (HCC) [E44.0] 08/22/2019 Disposition: Return for Status post below-knee amputation, PVD. Follow-up and Disposition History Recorded Encounter Status:Closed by GORDO FIGUEROA MD on 12/07/19 [facility] Beau 12-06-2019 JONAS Telephone (AGVASACC) ELIZABETH MODI ([id number]) 1940 M Date Time Provider Department 12/06/19 RYAN ALLEN During your visit today, we recorded the following information about you: Allergies As of Date: 12/06/2019 (No Known Allergies) Date Reviewed: 12/06/2019 Reviewed by: Gordo Figueroa - Fully Assessed Reason for Visit: Schedule Surgery [1330] Primary Visit Diagnosis:PVD (peripheral vascular disease) (HCC) [I73.9] Order(s):SURGICAL REQUEST - ELECTIVE [[id number]] Order #: [id number]: 1 HANDP FOR SURGERY [[id number]] Order #: [id number] PRE-PROCEDURE AND PRE-OPERATIVE COVID [SQPOCOVD] Order #: [id number] FUTURE CBC [SQCBC] Order #: [id number] FUTURE BASIC METABOLIC PNL [SQBMP] Order #: [id number] FUTURE PROTHROMBIN TIME/PT [SQPT] Order #: [id number] FUTURE Prescriptions as of 12/06/2019 Sig: OMEGA-3S 667 MJ-KFT-YCD-FISH * Take 1 tablet by mouth once [...] Status:Closed by RYAN ALLEN MD on 12/06/19 [facility] HOSPon 12-06-2019 HOSP Patient:Elizabeth Modi MRN: Height:5' 10"(1.778 m) Weight:186 lb (84.369 kg) Outpatient Medications as of 12/09/19: ebekj-1q-zyc-epa-fish oil-D3 667-250 mg-unit cap zinc sulfate (ORAZINC [...] basenames: K,HCT Progress Notes ([facility]): Gordo Figueroa MD 12/07/2019 10:39 [...] Outpatient Medications Medication Sig Dispense Refill - darxl-1k-bux-epa-fish oil-D3 667-250 mg-unit cap Take 1 tablet [...] up with us next Monday at the [facility]. Gordo Figueroa MD [facility] CASE MANAGEMon 09-11-2019 CASE MANAGEM HNO ID: [id number] Author: Tiffanie (Rn) KAVIN Travis Service: Care Management Author Type: Registered Nurse Type: Care Mgt Progress Note Filed: 09/11/2019 12:54 PM Note Text: CARE MANAGEMENT DISCHARGE NOTE SERVICE DATE: 09/11/2019 SERVICE TIME: 12:42 PM LOS: 21 days Admission Date: 08/21/2019 DISCHARGE ARRANGEMENT (list agency and phone number) Discharge Arrangement: halfway facility Was an expedited discharge program used?: No Provider Name: [facility] CAREGIVER ASSESSMENT: HANDOFF COMMUNICATION: Handoff to: Primary Care Physician TRANSPORTATION ARRANGEMENTS: Transportation Arrangements: Ambulance/[employer] Agency and Phone #:: [facility] ( [facility] ) [phone] / [phone] Type of Service: BLS Non-emergency Is Patient Medicaid Pending?: No Discussion of financial coverage occurred with: Family [employer] Location: [facility] Destination: [facility] Acute [facility] Financial Care Management Responsibility: None ADDITIONAL CONTACT RESOURCES: none Auth is obtained and patient has been discharged to [facility]. [employer] is transporting patient via cot at 13:00. Patient notified of discharge. He initially resisted stating he wanted to go to [facility]. Explained that he asked Tissue Coordinator to have his dtr Angelic makethe decision and she chose [facility]. Patient reluctantly agreed to discharge. Encouraged patient to discuss with staff there if he is not happy with the rehab and still wishes to go to [facility]. Patent's dtr Angelic notified. SIGNATURE: Tiffanie Travis RN PATIENT NAME: Elizabeth Modi DATE: September 11, 2019 TIME: 12:41 PM PAGER/CONTACT #: [phone] [facility] CASE MANAGEM HNO ID: [id number] Author: Tiffanie (Rn) KAVIN Travis Service: Care Management Author Type: Registered Nurse Type: Care Mgt Progress Note Filed: 09/11/2019 9:48 AM Note Text: CARE MANAGEMENT PROGRESS NOTE SERVICE DATE: 09/11/2019 SERVICE TIME: 9:47 AM LOS: 21 days Auth received for [facility]. MD notified. SIGNATURE: Tiffanie Travis RN PATIENT NAME: Elizabeth Modi DATE: September 11, 2019 TIME: 9:47 AM PAGER/CONTACT #: [phone] [facility] CONSULT PROGon 09-11-2019 CONSULT PROG HNO ID: [id number] Author: Doris Eden Service: Endocrinology Author Type: Physician Type: Consult Progress Note Filed: 09/11/2019 7:56 AM Note Text: ENDOCRINOLOGY CONSULT PROGRESS NOTE SERVICE DATE: 09/11/2019 SERVICE TIME: 7:40 AM Subjective INTERVAL HPI: Pt followed for diabetes mellitus type 2 with complications. Tr from [place]; adm for right foot infection and gangrene; [...] 2019 TIME: 7:56 AM PAGER: [phone] Normal [facility] Glucose Meteron 09-11-2019 Glucose [Mass/Vol] 173 mg/dL High 70-99 [facility] Comment on above: Result Comment: RN N OTIFIED Performed By: #### G LMET #### [place] [address] NUTRITIONon 09-11-2019 NUTRITION HNO ID: [id number] Author: Snow Serna Service: Nutrition Therapy Author Type: Registered Dietitian Type: Nutrition Filed: 09/11/2019 12:51 PM Note Text: NUTRITION THERAPY PROGRESS NOTE SERVICE DATE: 09/11/2019 SERVICE TIME: 12:36 PM Nutrition Assessment: Recommended Malnutrition Diagnosis: Moderate Protein-Calorie Malnutrition (09/06/19 1155 : Tanja Zimmerman) ALEIDA Byrne) Estimated kilocalorie needs: 3409-3579 Calorie Calculation Method: 30-35 kcals/kg Estimated protein [...] September 11, 2019 TIME: 12:36 PM PAGER: [phone] [facility] PLAN OF CAREon 09-11-2019 PLAN OF CARE HNO ID: [id number] Author: Francine Pineda (Pharmacist) Service: Pharmacy Author [...] this time from Discharge Medication List. FRANCINE PINEDA PHARMACIST September 11, 2019 11:45 AM Pager: [phone] 09/11/2019 11:45 AM Medication List START taking [...] unit/mL (3 mL) Commonly known as: LANTUS SOLOSTAR BASAGLAR KWIKPEN Inject 10 Units subcutaneously daily [...] IR 5 mg immediate release tablet Normal [facility] PROGRESSon 09-11-2019 PROGRESS HNO ID: [id number] Author: Tom Prescott DO Service: General Surgery Author Type: Resident Type: Progress Notes Filed: 09/11/2019 6:55 AM Note Text: Attestation signed by Ryan Allen at 09/11/2019 3:46 PM Attending Note I personally saw and examined the patient. I reviewed the resident's note. I agree with the resident's assessment and plan unless otherwise noted. Signature: Ryan Aleln MD Date: 09/11/2019 Time: 3:46 PM Vascular/Thoracic [...] morning, incision examined. Still awaiting precert at [place]. Continues to do knee exercises, in knee [...] 0659 09/11/19 07 - 09/12/19 0659 Shift 7022-6399 6607-6076 7559-1776 24 Hour Total 0465-6255 4758-6529 0231-5355 24 Hour Total INTAKE PO 120 120 PO 120 120 Shift Total 120 120 OUTPUT Urine 469 594 3296 2120 Void (ml) 645 587 6842 2120 Urine Not Saved. 1 x 1 x # of BMs Number of BMs 1 x 1 x 2 x Shift Total 270 364 9547 2120 Weight (kg) 87.7 87.7 87.6 87.6 [...] C/D/I with luly- healing well, minimal edema-stump local area network systems adminstrator in place. SKIN: Skin color, texture, turgor [...] lower extremity angiogram with partial occlusion R SEAL DELIVERY VEHICLE OFFICER, reconstitution at R below knee pop, 2-vessel runoff. Antibiotics stopped 08/23, remains non-septic. 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 09/02 PVR R calf 0.51, R low thigh 0.74. 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 Allen SIGNATURE: Tom Prescott DO PATIENT NAME: Elizabeth Modi DATE: September 11, 2019 TIME: 6:48 AM Vascular AND Thoracic Surgery Service Pager: For questions or concerns Mon-Fri 6a-5p please page [phone]. After 5pm and on Weekends and Holidays, please page [phone] if in ICU or [phone] if on RNF. Normal [facility] THERAPY NTon 09-11-2019 THERAPY NT HNO ID: [id number] Author: Ramón Obrien) Poppy Service: Physical Therapy Author Type: Shuttleless Loom Weaver Type: Therapy (PT/OT/Speech/Resp) Filed: 09/11/2019 12:04 PM Note Text: Attestation signed by Tori SantiagoPt) Santos at 09/12/2019 3:52 PM I reviewed and agree with the documentation corresponding to this therapy visit. SIGNATURE: Tori Graham, PT DATE: September 12, 2019 TIME: 3:52 PM Physical Therapy Treatment SERVICE DATE: 09/11/2019 SERVICE TIME: 1036 to 1111 ROOM: [id number] Recommended Discharge Disposition: Acute Rehab Recommended Discharge [...] l;Muscle Weakness (generalized) Interventions Provided: Therapeutic Exercise (06202);Therapeutic Activity (25088) Therapeutic Exercise (10965) Treatment Minutes: 18 1 unit Skilled Intervention(s): [...] and quad sets x10 hour. Therapeutic Activity (84216) Treatment Minutes: 17 1 unit Skilled Intervention(s): [...] Lives With: Self/Alone Assistance Available: time study observer Entry To Home: Stairs;With Rail Number Of [...] September 11, 2019 TIME: 11:55 AM Normal [facility] CONSULT PROGon 09-10-2019 CONSULT PROG HNO ID: [id number] Author: Doris Eden Service: Endocrinology Author Type: Physician Type: Consult Progress Note Filed: 09/10/2019 7:55 AM Note Text: ENDOCRINOLOGY CONSULT PROGRESS NOTE SERVICE DATE: 09/10/2019 SERVICE TIME: 7:35 AM Subjective INTERVAL HPI: Pt followed for diabetes mellitus type 2 with complications. Tr from [place]; adm for right foot infection and gangrene; [...] RRR Abdomen soft, no masses Extremities: has dressing/local area network systems adminstrator on R leg stump; dressing on left [...] September 10, 2019 TIME: 7:55 AM PAGER: [phone] Normal [facility] PROGRESSon 09-10-2019 PROGRESS HNO ID: [id number] Author: Jennifer Crooks Service: Vascular Surgery Author [...] Therapy: Room Air IANDO: Date 09/09/19699 - 09/10/1965809/10/19699 - 09/11/19658 Shift 8610-8341 2740-0957 8187-4315 24 Hour Total 6112-5307 3917-0099 8823-2077 24 Hour Total INTAKE Shift Total OUTPUT Urine 949 766 9510 Void (ml) 630 948 7836 # of BMs Number of BMs 1 x 1 x 2 x Shift Total 965 204 4302 Weight (kg) 87.7 87.7 87.7 87.7 87.7 [...] Gangrene of foot (HCC) 08/21/2019 - Diabetes ([facility]) 08/21/2019 - HTN (hypertension) 08/21/2019 - Dyslipidemia 08/21/2019 - Hypothyroidism 08/21/2019 79 year old male with PMH of thyroid disease, HTN, dyslipidemia,claudicat ion, DM. 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 Antibiotics stopped 08/23, remains non-septic. 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 09/02 PVR R calf 0.51, R low thigh 0.74. 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 ? Plan: -?DIET HEART HEALTHY? 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 Dressing changed re-applied stump local area network systems adminstrator today. Knee immobilize q4hr - Pain control - PT/OT?recs:?acute rehab - [facility] ppx - Mobilization as able, out of bed to chair?as tolerated - PAD - continue statin?and aspirin - [facility] planning[facility] V[facility] AND Thoracic Surgery Service Pager: For questions or concerns Mon-Mon 6a-5p please page [phone]. After 5pm and on Weekends and Holidays, please page [phone] if in ICU or [phone] if on RNF. SIGNATURE: Jennifer Crooks MD PATIENT NAME: Elizabeth Modi DATE: September 10, 2019 TIME: 6:28 AM Pager: Normal [facility] THERAPY NTon 09-10-2019 THERAPY NT HNO ID: [id number] Author: Ramón Obrien) Poppy Service: Physical Therapy Author Type: Shuttleless Loom Weaver Type: Therapy (PT/OT/Speech/Resp) Filed: 09/10/2019 12:18 PM Note Text: Attestation signed by Tori Graham at 09/11/2019 11:35 AM I reviewed and agree with the documentation corresponding to this therapy visit. SIGNATURE: Tori Graham PT DATE: September 11, 2019 TIME: 11:35 AM Physical Therapy Treatment SERVICE DATE: 09/10/2019 SERVICE TIME: 1043 to 1108 ROOM: [id number] Recommended Discharge Disposition: Acute Rehab Recommended Discharge [...] l;Muscle Weakness (generalized) Interventions Provided: Therapeutic Activity (97422) Therapeutic Activity (50380) Treatment Minutes: 25 2 units Skilled Intervention(s): [...] Lives With: Self/Alone Assistance Available: time study observer Entry To Home: Stairs;With Rail Number Of [...] September 10, 2019 TIME: 12:09 PM Normal [facility] Basic Panelon 09-09-2019 Creatinine [Mass/Vol] 0.73 mg/dL Normal 0.67-1.17 [facility] Comment on above: Result Comment: Use of this assay is not recommended for patients undergoing treatment with phenindione, due to the potential for falsely depressed results. Performed By: #### C BC1 #### [address] [address] Anion gap [Moles/Vol] 13 mmol/L Normal 8-16 [facility] Comment on above: Performed By: #### C BC1 #### [address] [address] CO2 [Moles/Vol] 24 mmol/L Normal 21-32 [facility] Comment on above: Performed By: #### C BC1 #### [address] [address] Urea nitrogen [Mass/Vol] 23 mg/dL High 7-18 [facility] Comment on above: Performed By: #### C BC1 #### [facility] [address] [place], [place] [address] Calcium [Mass/Vol] 8.9 mg/dL Normal 8.5-10.1 [facility] Comment on above: Performed By: #### C BC1 #### [address] [address] Glucose [Mass/Vol] 79 mg/dL Normal 70-99 [facility] Comment on above: Performed By: #### C BC1 #### [address] [address] Chloride [Moles/Vol] 100 mmol/L Normal 98-107 [facility] Comment on above: Performed By: #### C BC1 #### [facility] [address] [place] [id number] Potassium [Moles/Vol] 4.0 mmol/L Normal 3.5-5.1 [facility] Comment on above: Performed By: #### C BC1 #### [facility] [address] [place] [id number] Sodium [Moles/Vol] 133 mmol/L Low 136-145 [facility] Comment on above: Performed By: #### C BC1 #### [facility] [address] [place] [address] CASE MANAGEMon 09-09-2019 CASE MANAGEM HNO ID: [id number] Author: Christina Perez Service: Care Management Author [...] 09, 2019 TIME: 11:40 AM PAGER/CONTACT #: [phone] [facility] CASE MANAGEM HNO ID: [id number] Author: Tami Izquierdo) KAVIN Patricio Service: Care Management Author Type: Registered Nurse Type: Care Mgt Progress Note Filed: 09/09/2019 9:15 AM Note Text: CARE MANAGEMENT PROGRESS NOTE SERVICE DATE: 09/09/2019 SERVICE TIME: 9:14 AM LOS: 19 days Chart reviewed. Precert pending for [facility] rehab. Pt will need cot for transport at d/c. Will follow. SIGNATURE: Tami Patricio RN PATIENT NAME: Elizabeth Modi DATE: September 09, 2019 TIME: 9:14 AM PAGER/CONTACT #: [phone] [facility] CONSULT PROGon 09-09-2019 CONSULT PROG HNO ID: [id number] Author: Doris Eden Service: Endocrinology Author Type: Physician Type: Consult Progress Note Filed: 09/09/2019 8:25 AM Note Text: ENDOCRINOLOGY CONSULT PROGRESS NOTE SERVICE DATE: 09/09/2019 SERVICE TIME: 8:00 AM Subjective INTERVAL HPI: Pt followed for diabetes mellitus type 2 with complications. Tr from [place]; adm for right foot infection and gangrene; [...] DIET HEART HEALTHY Recent Labs 09/09/19 0557 09/08/19202209/08/19 1637 09/08/19 1102 09/08/19 0446 09/07/19 0632 [...] RRR Abdomen soft, no masses Extremities: has dressing/local area network systems adminstrator on R leg stump; dressing on left [...] 2019 TIME: 8:25 AM PAGER: [phone] Normal [facility] Hemogramon 09-09-2019 Erythrocyte distribution width (RBC) [Ratio] 15.9 % High 11.6-14.4 [facility] Comment on above: Performed By: #### P 8 #### [place] [id number] Hematocrit (Bld) [Volume fraction] 27.5 % Low 40.1-51.0 [facility] Comment on above: Performed By: #### P 8 #### [facility] [address] [place] [address] Hemoglobin (Bld) [Mass/Vol] 8.8 g/dL Low 13.7-17.5 [facility] Comment on above: Performed By: #### P 8 #### [facility] [address] [place] [address] MCH (RBC) [Entitic mass] 29.2 pg Normal 25.7-32.2 [facility] Comment on above: Performed By: #### P 8 #### [facility] [address] [place] [address] MCHC (RBC) [Mass/Vol] 32.0 % Low 32.3-36.5 [facility] Comment on above: Performed By: #### P 8 #### [facility] [address] [place] [address] MCV (RBC) [Entitic vol] 91.4 fL Normal 83.2-95.6 [facility] Comment on above: Performed By: #### P 8 #### [facility] [address] [place] [address] Platelet mean volume (Bld) [Entitic vol] 9.6 fL Normal 8.7-12.0 [facility] Comment on above: Performed By: #### P 8 #### [facility] [address] [place] [address] Platelets (Bld) [#/Vol] 505 thou/cmm High 141-365 [facility] Comment on above: Performed By: #### P 8 #### [facility] [address] [place] [address] RBC (Bld) [#/Vol] 3.01 mil/cmm Low 4.63-6.08 [facility] Comment on above: Performed By: #### P 8 #### [facility] [address] [place] [address] RDW SD 51.8 fl High 36.1-45.8 [facility] Comment on above: Performed By: #### P 8 #### [facility] [address] [place], [place] [address] WBC (Bld) [#/Vol] 12.29 thou/cmm High 4.23-9.07 [facility] Comment on above: Performed By: #### P 8 #### [facility] [address] [place] [id number] MDRD GFRon 09-09-2019 GFR/1.73 sq M predicted among non-blacks MDRD (S/P/Bld) [Vol rate/Area] mL/min/{1.73_m2} Normal >60mL/min/1 .73m2 [facility] Comment on above: Result Comment: If t he patient is , multiply the result by 1.210. Performed By: #### C BC1 #### [place] [id number] Magnesium Bloodon 09-09-2019 Magnesium [Mass/Vol] 1.3 mg/dL Low 1.6-2.6 [facility] Comment on above: Performed By: #### C _ANA #### [place] [address] PLAN OF CAREon 09-09-2019 PLAN OF CARE HNO ID: [id number] Author: Francine Pineda (Pharmacist) Service: Pharmacy Author Type: Pharmacist Type: Plan of Care Filed: 09/09/2019 11:32 AM Note Text: MEDICATION HISTORY AND MEDICATION RECONCILIATION Patient Name:Nelson Modi : 1940 Source of history:Pharmacy records: [facility] [place] [address] - [address] [facility] [phone] [id number] Medication Nonadherence Identified: No barriers noted- up to date on refills The above information represents the best possible medication history: Yes Reconciliation completed? Yes All SHANK ARCHER medications addressed by LIP Additional comments: Ticqx-ds-Wpazyygab Medication List Adjustments: Medication Regimen Changes: None Medications Added: None Medications Removed: None Short-Term Medications: None Further Clarification Required: None Patient is a 30 day readmission: No Patient Interested in Bedside Delivery: No Time Spent Reviewing Patient's Medications: 40 minutes Allergies: ALLERGIES No Known Allergies Preferred Pharmacy: [facility] [place] [address] - [address] [facility] ?- [phone] [id number] Current SHANK ARCHER Medications: Prior to Admission medications as of [...] PHARMACIST September 09, 2019 11:24 AM Normal [facility] PROGRESSon 09-09-2019 PROGRESS HNO ID: [id number] Author: Tom Prescott DO Service: General Surgery [...] of pain while wearing knee immobilizer. Stump local area network systems adminstrator supplied by [employer]. Denies f/C. Moving the stump without to [...] Date 09/08/19 07 - 09/09/19 0659 09/09/19 0700 - 09/10/19 0659 Shift 1061-3113 8675-6992 6276-0002 24 Hour Total 8030-9857 6608-2497 7742-1927 24 Hour Total INTAKE Shift Total OUTPUT [...] with luly in place, BKA with stump local area network systems adminstrator in place SKIN: Skin color, texture, turgor normal, No rashes or lesions ASSESSMENT AND PLAN: Active Hospital Problems Diagnosis Date Noted - Malnutrition of moderate degree ([facility]) 08/22/2019 - Gangrene of foot ([facility]) 08/21/2019 - Diabetes ([facility]) 08/21/2019 - HTN (hypertension) 08/21/2019 - Dyslipidemia 08/21/2019 - Hypothyroidism 08/21/2019 79 year old male with PMH of thyroid disease, HTN, dyslipidemia,claudicat ion, DM. 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 Antibiotics stopped 08/23, remains non-septic. 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 09/02 PVR R calf 0.51, R low thigh 0.74. 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 ? Plan: -?DIET HEART HEALTHY? 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 Dressing changed re-applied stump local area network systems adminstrator today. Knee immobilize q4hr - Pain control - PT/OT?recs:?acute rehab - [facility] ppx - Mobilization as able, out of bed to chair?as tolerated - PAD - continue statin?and aspirin - Dispo planning: [facility] Discuss plan with Dr. Devin Prescott DO, MBA PGY-1 General Surgery Resident 09/09/2019 9:02 AM Pager below: Vascular AND Thoracic Surgery Service Pager: For questions or concerns Mon-Fri 6a-5p please page [phone]. After 5pm and on Weekends and Holidays, please page [phone] if in ICU or [phone] if on RNF. Normal [facility] Phosphorus Bloodon 0 Phosphate [Mass/Vol] 3.1 mg/dL Normal 2.5-4.9 [facility] Comment on above: Performed By: #### C BC1 #### [facility] [address] [place] [address] THERAPY NTon 09-09-2019 THERAPY NT HNO ID: [id number] Author: Ramón Obrien) Poppy Service: Physical Therapy Author Type: Shuttleless Loom Weaver Type: Therapy (PT/OT/Speech/Resp) Filed: 09/09/2019 11:36 AM Note Text: Attestation signed by Tori Graham at 09/09/2019 4:16 PM I reviewed and agree with the documentation corresponding to this therapy visit. SIGNATURE: Tori Graham, PT DATE: September 09, 2019 TIME: 4:16 PM Physical Therapy Treatment SERVICE DATE: 09/09/2019 SERVICE TIME: 1053 to 1119 ROOM: [place] [address] Recommended Discharge Disposition: Acute Rehab Recommended Discharge [...] l;Muscle Weakness (generalized) Interventions Provided: Therapeutic Exercise (21859);Therapeutic Activity (27675) Therapeutic Exercise (88210) Treatment Minutes: 14 1 unit Skilled Intervention(s): [...] change of knee flexion contracture. Therapeutic Activity (30363) Treatment Minutes: 12 1 unit Skilled Intervention(s): [...] Lives With: Self/Alone Assistance Available: time study observer Entry To Home: Stairs;With Rail Number Of [...] September 09, 2019 TIME: 11:28 AM Normal [facility] Basic Panelon 09-08-2019 Creatinine [Mass/Vol] 0.71 mg/dL Normal 0.67-1.17 [facility] Comment on above: Result Comment: Use of this assay is not recommended for patients undergoing treatment with phenindione, due to the potential for falsely depressed results. Performed By: #### P 8 #### [address] [address] Anion gap [Moles/Vol] 11 mmol/L Normal 8-16 [facility] Comment on above: Performed By: #### P 8 #### [facility] [address] [place], [place] [address] Calcium [Mass/Vol] 8.7 mg/dL Normal 8.5-10.1 [facility] Comment on above: Performed By: #### P 8 #### [address] [address] CO2 [Moles/Vol] 24 mmol/L Normal 21-32 [facility] Comment on above: Performed By: #### P 8 #### [facility] [address] [place], [place] [address] Glucose [Mass/Vol] 132 mg/dL High 70-99 [facility] Comment on above: Performed By: #### P 8 #### [facility] [address] [place], [place] [address] Urea nitrogen [Mass/Vol] 17 mg/dL Normal 7-18 [facility] Comment on above: Performed By: #### P 8 #### [facility] [address] [place], [place] [address] Chloride [Moles/Vol] 102 mmol/L Normal 98-107 [facility] Comment on above: Performed By: #### P 8 #### [facility] [address] [place], [place] [address] Potassium [Moles/Vol] 3.9 mmol/L Normal 3.5-5.1 [facility] Comment on above: Performed By: #### P 8 #### [facility] [address] [place], [place] [address] Sodium [Moles/Vol] 133 mmol/L Low 136-145 [facility] Comment on above: Performed By: #### P 8 #### [facility] [address] [place], [place] [address] CONSULT PROGon 09-08-2019 CONSULT PROG HNO ID: [id number] Author: Hermila Gallegos Service: Endocrinology Author Type: Physician Type: Consult Progress Note Filed: 09/08/2019 1:57 PM Note Text: ENDOCRINOLOGY CONSULT PROGRESS NOTE SERVICE DATE: 09/08/2019 SERVICE TIME: 10:20 AM Subjective INTERVAL HPI: Pt followed for diabetes mellitus type 2 with complications. Tr from [place]; adm for right foot infection and gangrene; [...] 2019 TIME: 1:57 PM PAGER: [phone] Normal [facility] Hemogramon 09-08-2019 Erythrocyte distribution width (RBC) [Ratio] 15.8 % High 11.6-14.4 [facility] Comment on above: Performed By: #### P 8 #### [place] [address] Hematocrit (Bld) [Volume fraction] 27.0 % Low 40.1-51.0 [facility] Comment on above: Performed By: #### P 8 #### [place] [address] Hemoglobin (Bld) [Mass/Vol] 8.2 g/dL Low 13.7-17.5 [facility] Comment on above: Performed By: #### P 8 #### [place] [address] MCH (RBC) [Entitic mass] 27.8 pg Normal 25.7-32.2 [facility] Comment on above: Performed By: #### P 8 #### [facility] 1 [place] [address] MCHC (RBC) [Mass/Vol] 30.4 % Low 32.3-36.5 [facility] Comment on above: Performed By: #### P 8 #### [place] [id number] MCV (RBC) [Entitic vol] 91.5 fL Normal 83.2-95.6 [facility] Comment on above: Performed By: #### P 8 #### [facility] [address] [place], [place] [address] Platelet mean volume (Bld) [Entitic vol] 10.2 fL Normal 8.7-12.0 [facility] Comment on above: Performed By: #### P 8 #### [facility] [address] [place], [place] [address] Platelets (Bld) [#/Vol] 444 thou/cmm High 141-365 [facility] Comment on above: Performed By: #### P 8 #### [facility] [address] [place], [place] [address] RBC (Bld) [#/Vol] 2.95 mil/cmm Low 4.63-6.08 [facility] Comment on above: Performed By: #### P 8 #### [facility] [address] [place], [place] [address] RDW SD 51.5 fl High 36.1-45.8 [facility] Comment on above: Performed By: #### P 8 #### [facility] [address] [place], [place] [address] WBC (Bld) [#/Vol] 12.29 thou/cmm High 4.23-9.07 [facility] Comment on above: Performed By: #### P 8 #### [facility] [address] [place], [place] [address] Magnesium Bloodon 09-08-2019 Magnesium [Mass/Vol] 1.2 mg/dL Low 1.6-2.6 [facility] Comment on above: Performed By: #### C BC1 #### [facility] [address] [place], [place] [address] PROGRESSon 09-08-2019 PROGRESS HNO ID: [id number] Author: Jennifer Crooks Service: Vascular Surgery Author [...] pain moderately well controlled this am. Stump local area network systems adminstrator applied by Androcial yesterday. Knee immobilizer in place. Tolerating diet DIET HEART HEALTHY OBJECTIVE: Vitals: Temp (24hrs), Av.8 ?C (98.3 ?F), Min:36.5 ?C (97.7 ?F), Max:37.3 ?C (99.1 ?F) BP 119/85 Pulse 98 Temp 37.1 ?C (98.8 ?F) (Oral) Resp 16 Ht 177.8 cm (5' 10") Wt 90.4 kg (199 lb 4.7 oz) SpO2 96% BMI 28.60 kg/m? O2 Therapy: Room Air IANDO: Date 09/07/196[address] - 09/08/1965809/08/19699 - 09/09/19 0659 Shift 3006-2196 1695-3091 0248-0686 24 Hour Total 6583-6357 9693-3411 1170-5480 24 Hour Total INTAKE Shift Total OUTPUT Urine 468 154 2944 Void (ml) 687 212 9801 # of BMs Stool Incontinence 1 x 1 x Number of BMs 1 x 1 x Shift Total 754 922 1763 Weight (kg) 90 90 90.4 90.4 90.4 [...] lower extremity angiogram with partial occlusion R SEAL DELIVERY VEHICLE OFFICER, reconstitution at R below knee pop, 2-vessel [...] edema, no bleeding. Will change dressing/re-apply stump local area network systems adminstrator today. - Pain control - PT/OT?recs:?acute rehab - [facility] ppx - Mobilization as able, out of bed to chair?as tolerated - PAD - continue statin?and aspirin - [facility] Addendum: (10:34 AM) Patient seen bedside with attending. Knee immobilizer/and dressing/stump local area network systems adminstrator taken down. Surgical incision appears healthy with minimal drainage. No erythema or bleeding. [place] intact. Dressing/stump local area network systems adminstrator reapplied. Will continue knee immobilizer q4H and while OOB. ? Vascular AND Thoracic Surgery Service Pager: For questions or concerns Mon-Mon 6a-5p please page [phone]. After 5pm and on Weekends and Holidays, please page [phone] if in ICU or [phone] if on RNF. SIGNATURE: Jennifer Crooks MD PATIENT NAME: Elizabeth Modi DATE: September 08, 2019 TIME: 6:45 AM Pager: Normal [facility] Phosphorus Bloodon 0 Phosphate [Mass/Vol] 3.0 mg/dL Normal 2.5-4.9 [facility] Comment on above: Performed By: #### C BC1 #### [place] [address] Basic Panelon 09-07-2019 Creatinine [Mass/Vol] 0.84 mg/dL Normal 0.67-1.17 [facility] [place] Comment on above: Result Comment: Use of this assay is not recommended for patients undergoing treatment with phenindione, due to the potential for falsely depressed results. Performed By: #### F ERR #### [place] [address] Anion gap [Moles/Vol] 11 mmol/L Normal 8-16 [facility] [place] Comment on above: Performed By: #### F ERR #### [place] [address] CO2 [Moles/Vol] 25 mmol/L Normal 21-32 [facility] Comment on above: Performed By: #### F ERR #### [facility] [address] [place], [place] [address] Glucose [Mass/Vol] 147 mg/dL High 70-99 [facility] Comment on above: Performed By: #### F ERR #### [facility] [address] [place] [address] Urea nitrogen [Mass/Vol] 14 mg/dL Normal 7-18 [facility] Comment on above: Performed By: #### F ERR #### [facility] [address] [place] [address] Calcium [Mass/Vol] 9.5 mg/dL Normal 8.5-10.1 [facility] Comment on above: Performed By: #### F ERR #### [facility] [address] [place] [address] Chloride [Moles/Vol] 101 mmol/L Normal 98-107 [facility] Comment on above: Performed By: #### F ERR #### [facility] [address] [place] [address] Potassium [Moles/Vol] 4.2 mmol/L Normal 3.5-5.1 [facility] Comment on above: Performed By: #### F ERR #### [facility] [address] [place] [address] Sodium [Moles/Vol] 133 mmol/L Low 136-145 [facility] Comment on above: Performed By: #### F ERR #### [facility] [address] [place] [address] CONSULT PROGon 09-07-2019 CONSULT PROG HNO ID: [id number] Author: Hermila Gallegos Service: Endocrinology Author Type: Physician Type: Consult Progress Note Filed: 09/07/2019 11:25 AM Note Text: ENDOCRINOLOGY CONSULT PROGRESS NOTE SERVICE DATE: 09/07/2019 SERVICE TIME: 11:22 AM Subjective INTERVAL HPI: Pt followed for diabetes mellitus type 2 with complications. Tr from [place]; adm for right foot infection and gangrene; [...] 2019 TIME: 11:24 AM PAGER: [phone] Normal [facility] Hemogramon 09-07-2019 Erythrocyte distribution width (RBC) [Ratio] 16.1 % High 11.6-14.4 [facility] Comment on above: Performed By: #### M AG #### [address] [address] Hematocrit (Bld) [Volume fraction] 31.4 % Low 40.1-51.0 [facility] Comment on above: Performed By: #### M AG #### [address] [address] Hemoglobin (Bld) [Mass/Vol] 9.8 g/dL Low 13.7-17.5 [facility] Comment on above: Performed By: #### M AG #### [address] [address] MCH (RBC) [Entitic mass] 28.7 pg Normal 25.7-32.2 [facility] Comment on above: Performed By: #### M AG #### [facility] [address] [place] [address] MCHC (RBC) [Mass/Vol] 31.2 % Low 32.3-36.5 [facility] Comment on above: Performed By: #### M AG #### [facility] [address] [place] [address] MCV (RBC) [Entitic vol] 92.1 fL Normal 83.2-95.6 [facility] Comment on above: Performed By: #### M AG #### [facility] [address] [place] [address] Platelet mean volume (Bld) [Entitic vol] 9.6 fL Normal 8.7-12.0 [facility] Comment on above: Performed By: #### M AG #### [facility] [address] [place] [address] Platelets (Bld) [#/Vol] 519 thou/cmm High 141-365 [facility] Comment on above: Performed By: #### M AG #### [facility] [address] [place] [address] RBC (Bld) [#/Vol] 3.41 mil/cmm Low 4.63-6.08 [facility] Comment on above: Performed By: #### M AG #### [facility] [address] [place] [address] RDW SD 53.3 fl High 36.1-45.8 [facility] Comment on above: Performed By: #### M AG #### [facility] [address] [place] [address] WBC (Bld) [#/Vol] 12.27 thou/cmm High 4.23-9.07 [facility] Comment on above: Performed By: #### M AG #### [facility] [address] [place] [address] Magnesium Bloodon 09-07-2019 Magnesium [Mass/Vol] 1.3 mg/dL Low 1.6-2.6 [facility] Comment on above: Performed By: #### F ERR #### [facility] 1 [place] [id number] OPERATIVE NOon 09-07-2019 OPERATIVE NO HNO ID: [id number] Author: Ryan Allen Service: ? Author Type: Physician Type: Operative Report Filed: 09/09/2019 8:10 AM Note Text: [facility] - Operative Report ELIZABETH MODI : 1940 AGE: 79. SEX: M PATIENT TYPE: I HOSP SVC: KEENAN LOCATION: [facility] ATTENDING PHYSICIAN: JOVANNY PARMAR CSN NUMBER: [id number] DATE OF SURGERY/PROCEDURE: 09/05/2019 INCISION/PROCEDURE START TIME: 12:28 PM INCISION CLOSE/PROCEDURE END TIME: 2:14 PM PREOPERATIVE DIAGNOSIS: Gangrenous right lower extremity, status post guillotine amputation below the knee. POSTOPERATIVE DIAGNOSIS: Gangrenous right lower extremity, status post guillotine amputation below the knee. SURGEON: Ryan Allen MD, FACS VERTICAL MILL OPERATOR: Tom Prescott DO, resident, also surgical attendant is Irvin Walker. SURGERY/PROCEDURE: Revision of a [...] tuberosity location and also used the oscillating [place] saw to divide the fibula slightly proximal [...] satisfactory postop condition. Ryan Allen MD, FACS RGN:[id number] [facility] PROGRESSon 09-07-2019 PROGRESS HNO ID: [id number] Author: Jennifer Crooks Service: Vascular Surgery Author [...] kg/m? O2 Therapy: Room Air IANDO: Date 09/06/19 0700 - 09/07/19 0659 09/07/19 07 - 09/08/19 0659 Shift 3357-7205 4587-7306 5473-9327 24 Hour Total 4810-0146 9150-4057 0136-0490 24 Hour Total INTAKE Shift Total OUTPUT Urine 550 176 236 0162 Void (ml) 550 834 903 5443 Shift Total 550 788 142 6014 Weight (kg) 89.3 89.3 90 90 90 [...] lower extremity angiogram with partial occlusion R SEAL DELIVERY VEHICLE OFFICER, reconstitution at R below knee pop, 2-vessel [...] edema, no bleeding Nori consult for stump local area network systems adminstrator 09/06 - Pain control - PT/OT recs: acute rehab - [facility] ppx - Mobilization as able, out of bed to chair?as tolerated - PAD - continue statin?and aspirin - Dispo planning: awaiting precert to [facility] Vascular AND Thoracic Surgery Service Pager: For questions or concerns Mon-Mon 6a-5p please page [phone]. After 5pm and on Weekends and Holidays, please page [phone] if in ICU or [phone] if on RNF. SIGNATURE: Jennifer Crooks MD PATIENT NAME: Elizabeth Modi DATE: September 07, 2019 TIME: 6:39 AM Pager: Normal [facility] Phosphorus Bloodon 0 Phosphate [Mass/Vol] 3.0 mg/dL Normal 2.5-4.9 [facility] Comment on above: Performed By: #### C BC1 #### [place] [address] Basic Panelon 09-06-2019 Creatinine [Mass/Vol] 0.70 mg/dL Normal 0.67-1.17 [facility] Comment on above: Result Comment: Use of this assay is not recommended for patients undergoing treatment with phenindione, due to the potential for falsely depressed results. Performed By: #### C _ANA #### [place] [address] Anion gap [Moles/Vol] 10 mmol/L Normal 8-16 [facility] Comment on above: Performed By: #### C _ANA #### [place] [address] CO2 [Moles/Vol] 24 mmol/L Normal 21-32 [facility] Comment on above: Performed By: #### C _ANA #### [place] [address] Urea nitrogen [Mass/Vol] 14 mg/dL Normal 7-18 [facility] Comment on above: Performed By: #### C _ANA #### [facility] [address] [place], [place] [address] Calcium [Mass/Vol] 8.1 mg/dL Low 8.5-10.1 [facility] Comment on above: Performed By: #### C _ANA #### [facility] [address] [place], [place] [address] Glucose [Mass/Vol] 157 mg/dL High 70-99 [facility] Comment on above: Performed By: #### C _ANA #### [facility] [address] [place] [address] Chloride [Moles/Vol] 106 mmol/L Normal 98-107 [facility] Comment on above: Performed By: #### C _ANA #### [facility] [address] [place], [place] [address] Potassium [Moles/Vol] 4.4 mmol/L Normal 3.5-5.1 [facility] Comment on above: Performed By: #### C _ANA #### [facility] [address] [place] [address] Sodium [Moles/Vol] 136 mmol/L Normal 136-145 [facility] Comment on above: Performed By: #### C _ANA #### [facility] [address] [place] [address] CASE MGT INIT ASSESon 2019 CASE MGT INIT ASSES HNO ID: [id number] Author: Tami SantiagoRn) KAVIN Patricio Service: Care Management Author Type: Registered Nurse Type: Care Mgt Initial Assessment Filed: 09/06/2019 2:24 PM Note Text: CARE MANAGEMENT PROGRESS NOTE SERVICE DATE: 09/06/2019 SERVICE TIME: 2:23 PM LOS: 16 days Chart reviewed. Plan for [facility] - precert pending. Pt will need cot for transport. Will follow. SIGNATURE: Tami Patricio RN PATIENT NAME: Elizabeth Modi DATE: September 06, 2019 TIME: 2:22 PM PAGER/CONTACT #: [phone] Normal [facility] CONSULT PROGon 09-06-2019 CONSULT PROG HNO ID: [id number] Author: uLke Briones (Gurwinder) Sailaja Service: Wound/Ostomy Author Type: Nurse Practitioner Type: Consult Progress Note Filed: 09/06/2019 9:52 AM Note Text: WOUND CARE PROGRESS HAND TIER NOTE SERVICE DATE: 09/06/2019 SERVICE TIME: 09:02 [...] who is seen today with Zee Alba, Wound/tennis net maker, and presented to hospital with complaints of [...] left heel and seat cushion. Will reorder ARE450 mattress as patient is still on regular mattress and turn and reposition every 2 hours or more often. A photo was taken of the patient's wound(s). Photos can be found under the Get Images tab on [employer]. Photos are uploaded by the wound rn transitional care and may not be immediately available for viewing. Contact the wound and ostomy care department with questions. SIGNATURE: Luke Menard APRN.GURWINDER,CWOCN PATIENT NAME: Elizabeth Modi DATE: September 06, 2019 TIME: 9:45 AM CONTACT#: [id number] [facility] CONSULT PROG HNO ID: [id number] Author: Doris Eden Service: Endocrinology Author Type: Physician Type: Consult Progress Note Filed: 09/06/2019 7:59 AM Note Text: ENDOCRINOLOGY CONSULT PROGRESS NOTE SERVICE DATE: 09/06/2019 SERVICE TIME: 7:45 AM Subjective INTERVAL HPI: Pt followed for diabetes mellitus type 2 with complications. Tr from [place]; adm for right foot infection and gangrene; [...] September 06, 2019 TIME: 7:59 AM PAGER: [phone] Normal [facility] Hemogramon 09-06-2019 Erythrocyte distribution width (RBC) [Ratio] 16.2 % High 11.6-14.4 [facility] Comment on above: Performed By: #### F ERR #### [address] [address] Hematocrit (Bld) [Volume fraction] 26.4 % Low 40.1-51.0 [facility] Comment on above: Performed By: #### F ERR #### [address] [address] Hemoglobin (Bld) [Mass/Vol] 8.2 g/dL Low 13.7-17.5 [facility] Comment on above: Performed By: #### F ERR #### [address] [address] MCH (RBC) [Entitic mass] 28.5 pg Normal 25.7-32.2 [facility] Comment on above: Performed By: #### F ERR #### [facility] [address] [place] [address] MCHC (RBC) [Mass/Vol] 31.1 % Low 32.3-36.5 [facility] Comment on above: Performed By: #### F ERR #### [facility] [address] [place] [address] MCV (RBC) [Entitic vol] 91.7 fL Normal 83.2-95.6 [facility] Comment on above: Performed By: #### F ERR #### [facility] [address] [place] [address] Platelet mean volume (Bld) [Entitic vol] 9.7 fL Normal 8.7-12.0 [facility] Comment on above: Performed By: #### F ERR #### [facility] [address] [place] [address] Platelets (Bld) [#/Vol] 410 thou/cmm High 141-365 [facility] Comment on above: Performed By: #### F ERR #### [facility] [address] [place] [address] RBC (Bld) [#/Vol] 2.88 mil/cmm Low 4.63-6.08 [facility] Comment on above: Performed By: #### F ERR #### [facility] [address] [place] [address] RDW SD 53.9 fl High 36.1-45.8 [facility] Comment on above: Performed By: #### F ERR #### [facility] [address] [place] [address] WBC (Bld) [#/Vol] 10.15 thou/cmm High 4.23-9.07 [facility] Comment on above: Performed By: #### F ERR #### [facility] [address] [place] [address] Magnesium Bloodon 09-06-2019 Magnesium [Mass/Vol] 1.5 mg/dL Low 1.6-2.6 [facility] Comment on above: Performed By: #### C _ANA #### [facility] [address] [place] [address] NUTRITIONon 09-06-2019 NUTRITION HNO ID: [id number] Author: Tanja Zimmerman) ALEIDA Byrne Service: Nutrition Therapy Author Type: Registered Dietitian [...] condition;Depletion of fat/muscle stores Estimated kilocalorie needs: 8438-3528 Calorie Calculation Method: 30-35 kcals/kg Estimated protein [...] September 06, 2019 TIME: 9:53 AM PAGER: [phone] Normal [facility] PROGRESSon 09-06-2019 PROGRESS HNO ID: [id number] Author: Tom Prescott DO Service: General Surgery [...] Hopefully takedown dressing tomorrow and evaluate stump. Prosthetics company to visit for stump local area network systems adminstrator hopefully tomorrow as well Signature: Ryan Allen MD Date: 09/06/2019 Time: 2:39 PM Vascular Surgery Progress Note SERVICE DATE: 09/06/2019 Vascular AND Thoracic Surgery Service Pager: For questions or concerns Mon-Fri 6a-5p please page [phone]. After 5pm and on Weekends and Holidays, please page [phone] if in ICU or [phone] if on RNF. Subjective SUBJECTIVE: Patient seen [...] 0659 09/06/19 07 - 09/07/19 0659 Shift 3324-7954 0216-2254 7383-1379 24 Hour Total 6210-2325 2414-4144 9981-7032 24 Hour Total INTAKE PO 240 240 480 PO 240 240 480 IV 750 100 850 OR Crystalloid intake (mL) 750 750 Volume (mL) (lactated ringers infusion) 100 100 Shift Total 750 998 080 4342 OUTPUT Urine 150 1100 1300 2550 Void [...] Date Noted - Malnutrition of moderate degree ([facility]) 08/22/2019 - Gangrene of foot (HCC) 08/21/2019 - Diabetes (HCC) 08/21/2019 - HTN (hypertension) 08/21/2019 - Dyslipidemia 08/21/2019 - Hypothyroidism 08/21/2019 This is a 79 year old male with PMH of thyroid disease, HTN, dyslipidemia,claudicat ion, DM. 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 Antibiotics stopped 08/23, remains non-septic. 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 09/02 PVR R calf 0.51, R low thigh 0.74. 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 Dressing to be taken down tomorrow 09/06 Nori consult for stump local area network systems adminstrator 09/06 - Pain control - PT/OT recs: [...] ICU or 2174 if on RNF. Normal [facility] Phosphorus Bloodon 0 Phosphate [Mass/Vol] 2.9 mg/dL Normal 2.5-4.9 [facility] Comment on above: Performed By: #### M AG #### [place] [address] THERAPY NTon 09-06-2019 THERAPY NT HNO ID: [id number] Author: Briana SantiagoOtr/Vickie Watson Service: Occupational Therapy Author Type: Occupational Therapist Type: Therapy (PT/OT/Speech/Resp) Filed: 09/06/2019 3:43 PM Note Text: Occupational Therapy Treatment SERVICE DATE: 09/06/2019 SERVICE TIME: 1519 to 1533 ROOM: [place] [address] Recommended Discharge Disposition: Acute Rehab Recommended Discharge [...] feet;General symptoms and signs-other Interventions Provided: Self Residential Management (18799) Self Residential Management (76254) Treatment Minutes: 14 1 unit Skilled Intervention(s): [...] On 09/05/19 Reason for Occupational Therapy Consult: RUG RENOVATOR Relevant Past Medical History: thyroid, HTN, DM, claudication Patient Report: Pt seen bedside, agreeable to OT, no complaints this p.m. 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: time study observer Entry To Home: Stairs;With Rail Number Of [...] details for this therapy evaluation/treatment. SIGNATURE: NADIR Meléndez/Serene PATIENT NAME: Elizabeth Modi DATE: September 06, 2019 TIME: 3:38 PM Normal [facility] THERAPY NT HNO ID: [id number] Author: Marilyn (Pt) Mark Service: Physical Therapy Author Type: Physical Therapist Type: Therapy (PT/OT/Speech/Resp) Filed: 09/06/2019 12:03 PM Note Text: Physical Therapy Treatment SERVICE DATE: 09/06/2019 SERVICE TIME: 1109 to 1119 ROOM: [id number] Recommended Discharge Disposition: Acute Rehab Recommended Discharge [...] l;Muscle Weakness (generalized) Interventions Provided: Therapeutic Activity (05598) Therapeutic Activity (10933) Treatment Minutes: 10 1 unit Skilled Intervention(s): [...] Lives With: Self/Alone Assistance Available: time study observer Entry To Home: Stairs;With Rail Number Of [...] September 06, 2019 TIME: 11:55 AM Normal [facility] ABO/Rh Confirmationon 2019 ABO group Nom (Bld) A Normal [facility] Comment on above: Performed By: #### G LMET #### [facility] [address] [place] [address] RH Type Positive Normal [facility] Comment on above: Performed By: #### G LMET #### [place] [address] ANES [place] 09-05-2019 ANES POST HNO ID: [id number] Author: Sj Huizar Service: Anesthesiology Author Type: [...] 2019 TIME: 5:54 PM PAGER/CONTACT #: [phone] [facility] ANES PREOPon 09-05-2019 ANES PREOP HNO ID: [id number] Author: Al Pugh Service: Anesthesiology Author Type: [...] 114/58 Pulse: 73 71 70 Resp: 18 16 Temp: 37.3 ?C (99.1 ?F) [...] BID Francine (Res) Phyllis 1,000 mg at 09/04/19 2132 - [MAR Hold due to Transfer] dextrose [...] H Francine (Res) Phyllis 5,000 Units at 09/04/19 213 - [MAR Hold due to Transfer] metoprolol [...] Francine (Res) Phyllis 10 Units at 09/04/19 213 - [MAR Hold due to Transfer] ondansetron [...] 17 g ORAL DAILY PRN Francine (Res) Phlylis - [MAR Hold due to Transfer] docusate [...] September 05, 2019 TIME: 11:39 AM CSN: [id number] Normal [facility] BRIEF OP NOTon 09-05-2019 BRIEF OP NOT HNO ID: [id number] Author: Tom Prescott DO Service: General Surgery [...] BRIEF OPERATIVE / PROCEDURE NOTE LOG ID: [id number] SURGERY/PROCEDURE DATE: 09/05/2019 INCISION/PROCEDURE START TIME: 12:28 PM INCISION CLOSE/PROCEDURE END TIME: 2:14 PM SURGEON(S)/PROCEDURALI ST(S) AND VERTICAL MILL OPERATOR(S): Surgeon(s) and Role: * Ryan Allen - Primary * Tom (Kim) DO [place] - Resident - Assisting [employer]: Irvin Walker SA SURGERY/PROCEDURE(S): Revision of prior [...] ICU or 2174 if on RNF. Normal [facility] Basic Panelon 09-05-2019 Creatinine [Mass/Vol] 0.73 mg/dL Normal 0.67-1.17 [facility] on [facility] Comment on above: Result Comment: Use of this assay is not recommended for patients undergoing treatment with phenindione, due to the potential for falsely depressed results. Performed By: #### F ERR #### [address] [address] Anion gap [Moles/Vol] 9 mmol/L Normal 8-16 [place] on [facility] Comment on above: Performed By: #### F ERR #### [address] [address] Calcium [Mass/Vol] 7.8 mg/dL Low 8.5-10.1 [facility] Comment on above: Performed By: #### F ERR #### [address] [address] CO2 [Moles/Vol] 26 mmol/L Normal 21-32 [facility] Comment on above: Performed By: #### F ERR #### [facility] [address] [place], [place] [address] Glucose [Mass/Vol] 137 mg/dL High 70-99 [facility] Comment on above: Performed By: #### F ERR #### [facility] [address] [place], [place] [address] Urea nitrogen [Mass/Vol] 17 mg/dL Normal 7-18 [facility] Comment on above: Performed By: #### F ERR #### [facility] [address] [place], [place] [address] Chloride [Moles/Vol] 105 mmol/L Normal 98-107 [facility] Comment on above: Performed By: #### F ERR #### [facility] [address] [place], [place] [address] Potassium [Moles/Vol] 4.1 mmol/L Normal 3.5-5.1 [facility] Comment on above: Performed By: #### F ERR #### [facility] [address] [place], [place] [address] Sodium [Moles/Vol] 136 mmol/L Normal 136-145 [facility] Comment on above: Performed By: #### F ERR #### [facility] [address] [place], [place] [address] CONSULT PROGon 09-05-2019 CONSULT PROG HNO ID: [id number] Author: Doris Eden Service: Endocrinology Author Type: Physician Type: Consult Progress Note Filed: 09/05/2019 8:01 AM Note Text: ENDOCRINOLOGY CONSULT PROGRESS NOTE SERVICE DATE: 09/05/2019 SERVICE TIME: 7:50 AM Subjective INTERVAL HPI: Pt followed for diabetes mellitus type 2 with complications. Tr from [place]; adm for right foot infection and gangrene; had right foot guillotine amputation on 08/22. Had LE angiogram on 08/26. Had right femoral endarterectomy on 09/01. Was in ICU, tr to floor on 09/02. Plan for right BKA today. Pt has occ pain. No SOB, no nausea. PT following. DIET NPO For OR today Recent Labs 09/05/19 0545 09/04/196 09/04/19 1619 09/04/19 1122 09/04/19 0435 09/03/19 [...] 2019 TIME: 8:01 AM PAGER: [phone] Normal [facility] Hemogramon 09-05-2019 Erythrocyte distribution width (RBC) [Ratio] 16.0 % High 11.6-14.4 [facility] Comment on above: Performed By: #### G LMET #### [place] [address] Hematocrit (Bld) [Volume fraction] 25.4 % Low 40.1-51.0 [facility] Comment on above: Performed By: #### G LMET #### [place] [address] Hemoglobin (Bld) [Mass/Vol] 8.1 g/dL Low 13.7-17.5 [facility] Comment on above: Performed By: #### G LMET #### [address] [address] MCH (RBC) [Entitic mass] 29.1 pg Normal 25.7-32.2 [facility] Comment on above: Performed By: #### G LMET #### [facility] [address] [place], [place] [address] MCHC (RBC) [Mass/Vol] 31.9 % Low 32.3-36.5 [facility] Comment on above: Performed By: #### G LMET #### [facility] [address] [place], [place] [address] MCV (RBC) [Entitic vol] 91.4 fL Normal 83.2-95.6 [facility] Comment on above: Performed By: #### G LMET #### [facility] [address] [place], [place] [address] Platelet mean volume (Bld) [Entitic vol] 9.7 fL Normal 8.7-12.0 [facility] Comment on above: Performed By: #### G LMET #### [facility] [address] [place], [place] [address] Platelets (Bld) [#/Vol] 387 thou/cmm High 141-365 [facility] Comment on above: Performed By: #### G LMET #### [facility] [address] [place], [place] [address] RBC (Bld) [#/Vol] 2.78 mil/cmm Low 4.63-6.08 [facility] Comment on above: Performed By: #### G LMET #### [facility] [address] [place] [address] RDW SD 52.4 fl High 36.1-45.8 [facility] Comment on above: Performed By: #### G LMET #### [facility] [address] [place], [place] [address] WBC (Bld) [#/Vol] 9.06 thou/cmm Normal 4.23-9.07 [facility] Comment on above: Performed By: #### G LMET #### [facility] [address] [place] [address] Magnesium Bloodon 09-05-2019 Magnesium [Mass/Vol] 1.3 mg/dL Low 1.6-2.6 [facility] Comment on above: Performed By: #### C _ANA #### [facility] [address] [place] [address] PROGRESSon 09-05-2019 PROGRESS HNO ID: [id number] Author: Francine Roberts Service: Vascular Surgery Author [...] questions or concerns Mon-Mon 6a-5p please page [phone]. After 5pm and on Weekends and Holidays, please page [phone] if in ICU or [phone] if on RNF. Subjective SUBJECTIVE: Denies pain. [...] Therapy: Room Air IANDO: Date 09/04/19699 - 09/05/1965809/05/19699 - 09/06/1958 Shift 9564-0280 5128-0804 1605-8244 24 Hour Total 2777-7593 8483-1889 4376-7095 24 Hour Total INTAKE Shift Total OUTPUT Urine 650 142 179 1710 Void (ml) 650 043 741 8108 Shift Total 650 206 923 6062 Weight (kg) 89.4 89.4 89.4 89.4 89.4 [...] Date Noted - Malnutrition of moderate degree ([facility]) 08/22/2019 - Gangrene of foot (HCC) 08/21/2019 - Diabetes ([facility]) 08/21/2019 - HTN (hypertension) 08/21/2019 - Dyslipidemia 08/21/2019 - Hypothyroidism 08/21/2019 This is a 79 year old male with PMH of thyroid disease, HTN, dyslipidemia,claudicat ion, DM. 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 Normal [facility] Phosphorus Bloodon 0 Phosphate [Mass/Vol] 2.9 mg/dL Normal 2.5-4.9 [facility] Comment on above: Performed By: #### M AG #### [place] [address] Surgical Tissue Examon 09-04 Surgical Tissue Exam Test performed at [place] [address] NAME: ELIZABETH MODI REQUESTING: JOVANNY PARMAR MD [...] mild calcific atherosclerosis. Thrombi are not present. Criminalist sections are submitted as follows: 1 - soft tissue line of resection (black ink); 2-3 - new accounts representative sections of red-pink ischemic process at distal aspect; 4 - new accounts representative sections of vessels; 5 - new accounts representative section of bone following a period of decalcification. KVB:cindi ARENAS M.D. (Electronic signature on file) Signed out: 09/09/2019 14:52 PRINTED: 09/09/2019 Page 1 of 1 [facility] Comment on above: Performed By: #### M AG #### [place] [address] Type and Screenon 09-05-2019 ABO group Nom (Bld) A Normal [facility] Comment on above: Performed By: #### M AG #### [place] [address] Comment See Below [facility] Comment on above: Result Comment: Scre en &/or Xmatch expires in 3 days at 12 midnight. Redraw patient at that time. Performed By: #### M AG #### [place] [address] RH Type Positive Normal [facility] Comment on above: Performed By: #### M AG #### [place] [address] Basic Panelon 09-04-2019 Creatinine [Mass/Vol] 0.87 mg/dL Normal 0.67-1.17 [facility] Comment on above: Result Comment: Use of this assay is not recommended for patients undergoing treatment with phenindione, due to the potential for falsely depressed results. Performed By: #### F ERR #### [place] [address] Anion gap [Moles/Vol] 8 mmol/L Normal 8-16 [facility] Comment on above: Performed By: #### F ERR #### [place] [address] Calcium [Mass/Vol] 8.0 mg/dL Low 8.5-10.1 [facility] Comment on above: Performed By: #### F ERR #### [place] [address] CO2 [Moles/Vol] 25 mmol/L Normal 21-32 [facility] Comment on above: Performed By: #### F ERR #### [facility] [address] [place], [place] [address] Glucose [Mass/Vol] 113 mg/dL High 70-99 [facility] Comment on above: Performed By: #### F ERR #### [facility] [address] [place], [place] [address] Urea nitrogen [Mass/Vol] 23 mg/dL High 7-18 [facility] Comment on above: Performed By: #### F ERR #### [facility] [address] [place], [place] [address] Chloride [Moles/Vol] 110 mmol/L High 98-107 [facility] Comment on above: Performed By: #### F ERR #### [facility] [address] [place] [address] Potassium [Moles/Vol] 4.0 mmol/L Normal 3.5-5.1 [facility] Comment on above: Performed By: #### F ERR #### [facility] [address] [place] [address] Sodium [Moles/Vol] 139 mmol/L Normal 136-145 [facility] Comment on above: Performed By: #### F ERR #### [facility] [address] [place] [address] CASE MANAGEMon 09-04-2019 CASE MANAGEM HNO ID: [id number] Author: Tami Patricio RN Service: Care Management Author Type: Registered Nurse Type: Care Mgt Progress Note Filed: 09/04/2019 9:41 AM Note Text: CARE MANAGEMENT PROGRESS NOTE SERVICE DATE: 09/04/2019 SERVICE TIME: 9:36 AM LOS: 14 days Chart reviewed. 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 Plan for [facility] at d/c. Pt will need auth when medically stable and likely cot transport. Will follow. SIGNATURE: Tami Patricio RN PATIENT NAME: Elizabeth Modi DATE: September 04, 2019 TIME: 9:36 AM PAGER/CONTACT #: [phone] Normal [facility] CONSULT PROGon 09-04-2019 CONSULT PROG HNO ID: [id number] Author: Doris Eden Service: Endocrinology Author Type: Physician Type: Consult Progress Note Filed: 09/04/2019 9:41 AM Note Text: ENDOCRINOLOGY CONSULT PROGRESS NOTE SERVICE DATE: 09/04/2019 SERVICE TIME: 9:20 AM Subjective INTERVAL HPI: Pt followed for diabetes mellitus type 2 with complications. Tr from [place]; adm for right foot infection and gangrene; [...] 2019 TIME: 9:41 AM PAGER: [phone] Normal [facility] Hemogramon 09-04-2019 Erythrocyte distribution width (RBC) [Ratio] 15.8 % High 11.6-14.4 [facility] Comment on above: Performed By: #### F ERR #### [address] [address] Hematocrit (Bld) [Volume fraction] 27.6 % Low 40.1-51.0 [facility] Comment on above: Performed By: #### F ERR #### [address] [address] Hemoglobin (Bld) [Mass/Vol] 8.3 g/dL Low 13.7-17.5 [facility] Comment on above: Performed By: #### F ERR #### [address] [address] MCH (RBC) [Entitic mass] 28.0 pg Normal 25.7-32.2 [facility] Comment on above: Performed By: #### F ERR #### [facility] [address] [place] [address] MCHC (RBC) [Mass/Vol] 30.1 % Low 32.3-36.5 [facility] Comment on above: Performed By: #### F ERR #### [facility] [address] [place] [address] MCV (RBC) [Entitic vol] 93.2 fL Normal 83.2-95.6 [facility] Comment on above: Performed By: #### F ERR #### [facility] [address] [place] [address] Platelet mean volume (Bld) [Entitic vol] 10.0 fL Normal 8.7-12.0 [facility] Comment on above: Performed By: #### F ERR #### [facility] [address] [place] [address] Platelets (Bld) [#/Vol] 371 thou/cmm High 141-365 [facility] Comment on above: Performed By: #### F ERR #### [facility] [address] [place] [address] RBC (Bld) [#/Vol] 2.96 mil/cmm Low 4.63-6.08 [facility] Comment on above: Performed By: #### F ERR #### [facility] [address] [place] [address] RDW SD 51.6 fl High 36.1-45.8 [facility] Comment on above: Performed By: #### F ERR #### [facility] [address] [place] [address] WBC (Bld) [#/Vol] 9.95 thou/cmm High 4.23-9.07 [facility] Comment on above: Performed By: #### F ERR #### [facility] [address] [place] [address] Magnesium Bloodon 09-04-2019 Magnesium [Mass/Vol] 1.8 mg/dL Normal 1.6-2.6 [facility] Comment on above: Performed By: #### M #### [facility] [address] [place] [address] PROGRESSon 09-04-2019 PROGRESS HNO ID: [id number] Author: Francine Roberts Service: Vascular Surgery Author [...] questions or concerns Mon-Mon 6a-5p please page [phone]. After 5pm and on Weekends and Holidays, please page [phone] if in ICU or [phone] if on RNF. Subjective SUBJECTIVE: Complaining of [...] Room Air IANDO: Date 09/03/19 07 - 09/04/19 0659 09/04/19 07 - 09/05/19 0659 Shift 3296-5122 4924-3010 1424-4761 24 Hour Total 4255-7472 9706-3446 6585-7478 24 Hour Total INTAKE IV 611 611 Volume (mL) (lactated ringers infusion) 511 511 Volume (mL) (magnesium sulfate in sterile water 4 g iv piggyback) 100 100 Shift Total 611 611 OUTPUT Urine 537 703 8596 Void (ml) 671 061 6828 Shift Total 389 365 6421 Weight (kg) 91.4 91.4 89.4 89.4 89.4 [...] Date Noted - Malnutrition of moderate degree ([facility]) 08/22/2019 - Gangrene of foot ([facility]) 08/21/2019 - Diabetes (HCC) 08/21/2019 - HTN (hypertension) 08/21/2019 - Dyslipidemia 08/21/2019 - Hypothyroidism 08/21/2019 This is a 79 year old male with PMH of thyroid disease, HTN, dyslipidemia,claudicat ion, DM. 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 Normal [facility] Phosphorus Bloodon 0 Phosphate [Mass/Vol] 2.2 mg/dL Low 2.5-4.9 [facility] Comment on above: Performed By: #### C _ANA #### [place] [address] THERAPY NTon 09-04-2019 THERAPY NT HNO ID: [id number] Author: Marilyn (PtSmitha Flores Service: Physical Therapy Author Type: Physical Therapist Type: Therapy (PT/OT/Speech/Resp) Filed: 09/04/2019 3:34 PM Note Text: PHYSICAL THERAPY MISSED VISIT SERVICE DATE: 09/04/2019 SERVICE TIME: 1532 to 1532 ROOM: [place] [address] Attempted Treatment. Patient not seen due to Declined. Patient reports he is extremely tired today and is having his procedure tomorrow. States he is not feeling up to it today despite encouragement. Educated patient that we will visit him after his procedure. SIGNATURE: Marilyn Flores PT PATIENT NAME: Elizabeth Modi DATE: September 04, 2019 TIME: 3:33 PM Normal [facility] ANES [place] 09-03-2019 ANES POST HNO ID: [id number] Author: Dwayne Kerns Service: Anesthesiology Author Type: [...] BP: 98/51 94/51 (!) 99/47 (!) 106/49 09/02/19199909/02/19209909/02/19 2200 09/02/19 2300 Pulse: 82 87 87 70 09/02/19199909/02/19209909/02/19219909/02/19 [...] 02, 2019 TIME: 11:44 PM PAGER/CONTACT #: [phone] Normal [facility] Basic Panelon 09-03-2019 Creatinine [Mass/Vol] 0.90 mg/dL Normal 0.67-1.17 [facility] Comment on above: Result Comment: Use of this assay is not recommended for patients undergoing treatment with phenindione, due to the potential for falsely depressed results. Performed By: #### C BC1 #### [facility] [address] [place], [place] [address] Anion gap [Moles/Vol] 7 mmol/L Low 8-16 [facility] Comment on above: Performed By: #### C BC1 #### [facility] [address] [place], [place] [address] Calcium [Mass/Vol] 7.9 mg/dL Low 8.5-10.1 [facility] Comment on above: Performed By: #### C BC1 #### [facility] [address] [place], [place] [address] CO2 [Moles/Vol] 27 mmol/L Normal 21-32 [facility] Comment on above: Performed By: #### C BC1 #### [facility] [address] [place], [place] [address] Glucose [Mass/Vol] 135 mg/dL High 70-99 [facility] Comment on above: Performed By: #### C BC1 #### [facility] [address] [place], [place] [address] Urea nitrogen [Mass/Vol] 25 mg/dL High 7-18 [facility] Comment on above: Performed By: #### C BC1 #### [facility] [address] [place], [place] [address] Chloride [Moles/Vol] 106 mmol/L Normal 98-107 [facility] Comment on above: Performed By: #### C BC1 #### [facility] [address] [place], [place] [address] Potassium [Moles/Vol] 4.4 mmol/L Normal 3.5-5.1 [facility] Comment on above: Performed By: #### C BC1 #### [facility] [address] [place], [place] [address] Sodium [Moles/Vol] 136 mmol/L Normal 136-145 [facility] Comment on above: Performed By: #### C BC1 #### [facility] [address] [place] [address] CASE MANAGEMon 09-03-2019 CASE MANAGEM HNO ID: [id number] Author: Ammy (Rn) KAVIN Gutierres Service: ? [...] 03, 2019 TIME: 9:50 AM PAGER/CONTACT #: [phone] Normal [facility] CONSULT PROGon 09-03-2019 CONSULT PROG HNO ID: [id number] Author: Doris Eden Service: Endocrinology Author Type: Physician Type: Consult Progress Note Filed: 09/03/2019 8:39 AM Note Text: ENDOCRINOLOGY CONSULT PROGRESS NOTE SERVICE DATE: 09/03/2019 SERVICE TIME: 8:05 AM Subjective INTERVAL HPI: Pt followed for diabetes mellitus type 2 with complications. Tr from [place]; adm for right foot infection and gangrene; [...] 2019 TIME: 8:39 AM PAGER: [phone] Normal [facility] Hemogramon 09-03-2019 Erythrocyte distribution width (RBC) [Ratio] 15.4 % High 11.6-14.4 [facility] Comment on above: Performed By: #### M AG #### [facility] [address] [place] [address] Hematocrit (Bld) [Volume fraction] 28.1 % Low 40.1-51.0 [facility] Comment on above: Performed By: #### M AG #### [facility] [address] [place] [address] Hemoglobin (Bld) [Mass/Vol] 8.9 g/dL Low 13.7-17.5 [facility] Comment on above: Performed By: #### M AG #### [facility] [address] [place] [address] MCH (RBC) [Entitic mass] 29.1 pg Normal 25.7-32.2 [facility] Comment on above: Performed By: #### M AG #### [facility] [address] [place] [address] MCHC (RBC) [Mass/Vol] 31.7 % Low 32.3-36.5 [facility] Comment on above: Performed By: #### M AG #### [place] [address] MCV (RBC) [Entitic vol] 91.8 fL Normal 83.2-95.6 [facility] Comment on above: Performed By: #### M AG #### [place] [address] Platelet mean volume (Bld) [Entitic vol] 9.4 fL Normal 8.7-12.0 [facility] Comment on above: Performed By: #### M AG #### [place] [address] Platelets (Bld) [#/Vol] 410 thou/cmm High 141-365 [facility] Comment on above: Performed By: #### M AG #### [place] [address] RBC (Bld) [#/Vol] 3.06 mil/cmm Low 4.63-6.08 [facility] Comment on above: Performed By: #### M AG #### [place] [address] RDW SD 48.7 fl High 36.1-45.8 [facility] Comment on above: Performed By: #### M AG #### [facility] [address] [place], [place] [address] WBC (Bld) [#/Vol] 12.94 thou/cmm High 4.23-9.07 [facility] Comment on above: Performed By: #### M AG #### [facility] [address] [place], [place] [address] Magnesium Bloodon 09-03-2019 Magnesium [Mass/Vol] 1.4 mg/dL Low 1.6-2.6 [facility] Comment on above: Performed By: #### M AG #### [facility] [address] [place], [place] [address] NURSING PROGon 09-03-2019 NURSING PROG HNO ID: [id number] Author: Kassidy Lew RN Service: Nursing Author Type: Registered Nurse Type: Nursing Progress Note Filed: 09/03/2019 11:57 AM Note Text: Nursing Progress Note Patient Name: Elizabeth Modi Patient Location: [place] [address] [address] __ Daily Note: 1047--report called to Darrin Chau RN. 1113--pt transferred to [facility] via chair on RA with Rn and Sr Tech. Pt remains in chair, chair locked, call light within reach, tele applied. KAVIN Chau in room. This note was completed by: Kassidy Lew RN [facility] PROGRESSon 09-03-2019 PROGRESS HNO ID: [id number] Author: Francine Roberts Service: Vascular Surgery Author [...] questions or concerns Mon-Fri 6a-5p please page [phone]. After 5pm and on Weekends and Holidays, please page [phone] if in ICU or [phone] if on RNF. Subjective SUBJECTIVE: SARATH. Says [...] Therapy: Room Air IANDO: Date 09/02/19699 - 09/03/1958 09/03/196[address] - 09/04/19 0659 Shift 5583-2420 2421-9357 5702-4052 24 Hour Total 3401-1846 2470-8528 3339-2651 24 Hour Total INTAKE Shift Total OUTPUT [...] Date Noted - Malnutrition of moderate degree ([facility]) 08/22/2019 - Gangrene of foot ([facility]) 08/21/2019 - Diabetes ([facility]) 08/21/2019 - HTN (hypertension) 08/21/2019 - Dyslipidemia 08/21/2019 - Hypothyroidism 08/21/2019 This is a 79 year old male with PMH of thyroid disease, HTN, dyslipidemia,claudicat ion, DM. 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 After 5pm and on Weekends and Holidays, please page [phone] if in ICU or [phone] if on RNF. Normal [facility] Phosphorus Bloodon 0 Phosphate [Mass/Vol] 2.9 mg/dL Normal 2.5-4.9 [facility] Comment on above: Performed By: #### P 8 #### [place] [address] THERAPY NTon 09-03-2019 THERAPY NT HNO ID: [id number] Author: Tamiko SantiagoOtr/LSmitha Nur Service: Occupational Therapy Author Type: Occupational Therapist Type: Therapy (PT/OT/Speech/Resp) Filed: 09/03/2019 9:19 AM Note Text: Occupational Therapy Evaluation(Re-Evaluati on) SERVICE DATE: 09/03/2019 SERVICE TIME: 0845 to 0900 ROOM: [id number] Recommended Discharge Disposition: Acute Rehab Justification [...] and signs-other Interventions Provided: Re-evaluation $ Reevaluation (94130) Billed Units: 1 unit Total Timed Code Treatment Minutes: 39 Total Treatment Time (minutes): 15 SUBJECTIVE: Current Hospital Course: Chart reviewed; R femoral endarterectomy 09/02/2019 Reason for Occupational Therapy Consult: RUG RENOVATOR Relevant Past Medical History: thyroid, HTN, DM, claudication Patient Report: found supine, agreeable to session, moderate pain. "I am so glad I got to the chair." 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: time study observer Entry To Home: Stairs;With Rail Number Of [...] September 03, 2019 TIME: 9:15 AM Normal [facility] THERAPY NT HNO ID: [id number] Author: Marilyn (Reese Flores Service: Physical Therapy Author Type: Physical Therapist Type: Therapy (PT/OT/Speech/Resp) Filed: 09/03/2019 9:12 AM Note Text: Physical Therapy Treatment SERVICE DATE: 09/03/2019 SERVICE TIME: 0830 to 0853 ROOM: [id number] Recommended Discharge Disposition: Acute Rehab Recommended Discharge [...] Weakness (generalized) Interventions Provided: Re-evaluation $ Reevaluation (38704) Billed Units: 1 unit Re-evaluation completed due to completion of R femoral endarterectomy Therapeutic Activity (22125) Treatment Minutes: 10 1 unit Skilled Intervention(s): [...] Lives With: Self/Alone Assistance Available: time study observer Entry To Home: Stairs;With Rail Number Of [...] September 03, 2019 TIME: 9:08 AM Normal [facility] US ARTERIAL PVR LOWERon 08-17 US ARTERIAL PVR LOWER * * *Final Report* * * DATE OF EXAM: Sep 03 2019 11:07AM A2U 1107 - US ARTERIAL PVR LOWER / PROCEDURE REASON: s/p surgery * * * * Physician Interpretation * * * * Non-Invasive Vascular Laboratory [facility] Lower Extremity Arterial Physiology Study Bilateral/Complete Date of service/time: 09/03/2019 9:25:00 AM Name: ELIZABETH MODI Date of : 1940 Age: 79 years Gender: M Medical History Tobacco: Former PAD: Yes Hypertension: Yes Diabetes: Yes Clinical Indication 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 TECHNIQUE -------- An arterial physiological examination [...] Interpreting physician: Gordo Figueroa MD Final RP Pharmacy Informaticist: RICHARD Maririprice Date/Time: Sep 03 2019 9:25A Dictated by : GORDO FIGUEROA MD This examination was interpreted and the report reviewed and electronically signed by: GORDO FIGUEROA MD on Sep 05 2019 9:48AM EST Normal [facility] US VEIN MAPPING LOWER BILon 09-03-2019 US VEIN MAPPING LOWER JIGNA * * *Final Rep ort* * * DATE OF EXAM: Sep 02 2019 10:07PM [facility] 1081 - US VEIN MAPPING LOWER JIGNA [...] lower extremity. Superficial venous measurements as above. Pharmacy Informaticist: PSCEmily Transcribe Date/Time: Sep 02 2019 10:28P Dictated by : DWAYNE BURTON MD This examination was interpreted and the report reviewed and electronically signed by: DWAYNE BURTON MD on Sep 02 2019 10:38PM [facility] ANES PREOPon 09-02-2019 ANES PREOP HNO ID: [id number] Author: Tammy Hinson Service: Anesthesiology Author Type: [...] (HumaLOG KWIKPEN) SUBCUTANEOUS w MEALS Tom (Res) Westthelma, DO 2 Units at 09/02/19 0832 - [...] 10 Units SUBCUTANEOUS AT BEDTIME Tom (Res) Kenyon, DO 10 Units at 09/01/19 2300 - [MAR Hold due to Transfer] heparin 5,000 Units injection 5,000 Units SUBCUTANEOUS q 12 H Tom (Res) Kenyon, DO 5,000 Units at 09/01/192028 - [MAR Hold due to Transfer] ondansetron 4 mg tab(s) (ZOFRAN) 4 mg ORAL q 6 H PRN Tom (Res) Kenyon, DO Or - [MAR Hold due to [...] ORAL q 6 H PRN Tom (Res) Westling, DO 650 mg at 09/01/19 0849 - [MAR Hold due to Transfer] atorvastatin 40 mg tab(s) (LIPITOR) 40 mg ORAL DAILY Tom (Res) Westling, DO 40 mg at 09/01/192028 - [MAR Hold due to Transfer] lisinopril 10 mg tab(s) (ZESTRIL, PRINIVIL) 10 mg ORAL DAILY Tom (Res) Westling, DO 10 mg at 09/01/19848 - [MAR Hold due to Transfer] levothyroxine 25 mcg tab(s) (SYNTHROID) 25 mcg ORAL DAILY Tom (Res) Abdoulayeling, DO 25 mcg at 09/02/193 - [MAR Hold due to Transfer] dextrose 40 % 15 g 15 g ORAL PRN Tom (Res) Abdoulayeling, DO Or - [MAR Hold due to Transfer] glucagon 1 mg injection (GLUCAGEN) 1 mg INTRAMUSCULAR PRN Tom (Res) Kenyon, DO Or - [MAR Hold due to Transfer] dextrose 50% in water 25 mL syringe 12.5 g INTRAVENOUS PRN Tom (Res) Kenyon, DO Allergies: ALLERGIES No Known Allergies DOS EXAM: [...] September 02, 2019 TIME: 9:50 AM CSN: [id number] [facility] BRIEF OP NOTon 09-02-2019 BRIEF OP NOT HNO ID: [id number] Author: Francine Roberts Service: Vascular Surgery Author [...] BRIEF OPERATIVE / PROCEDURE NOTE LOG ID: [id number] Patient Name:Elizabeth Modi CSN: [id number] Surgery/Procedure Date: 09/02/2019 Incision/Procedure Start Time: 11:01 AM Incision Close/Procedure End Time: Surgeon(s)/Procedurali st(s) and Student Driving Instructor(s): Surgeon(s) and Role: * Jovanny Parmar - Primary * Francine Roberts - Resident - Assisting Aviation All Source Intelligence: Lori Schmid SA Procedure(s): Procedure(s) (LRB): ENDARTERECTOMY [...] 02, 2019 TIME: 12:47 PM PAGER/CONTACT #: [phone] Normal [facility] Basic Panelon 09-02-2019 Creatinine [Mass/Vol] 0.78 mg/dL Normal 0.67-1.17 [facility] Comment on above: Result Comment: Use of this assay is not recommended for patients undergoing treatment with phenindione, due to the potential for falsely depressed results. Performed By: #### M AG #### [address] [address] Anion gap [Moles/Vol] 12 mmol/L Normal 8-16 [facility] Comment on above: Performed By: #### M AG #### [address] [address] Calcium [Mass/Vol] 8.4 mg/dL Low 8.5-10.1 [facility] Comment on above: Performed By: #### M AG #### [address] [address] CO2 [Moles/Vol] 24 mmol/L Normal 21-32 [facility] Comment on above: Performed By: #### M AG #### [address] [address] Urea nitrogen [Mass/Vol] 24 mg/dL High 7-18 [facility] Comment on above: Performed By: #### M AG #### [facility] [address] [place], [place] [address] Glucose [Mass/Vol] 148 mg/dL High 70-99 [facility] Comment on above: Performed By: #### M AG #### [address] [address] Chloride [Moles/Vol] 104 mmol/L Normal 98-107 [facility] Comment on above: Performed By: #### M AG #### [facility] [address] [place], [place] [address] Potassium [Moles/Vol] 4.1 mmol/L Normal 3.5-5.1 [facility] Comment on above: Performed By: #### M AG #### [facility] [address] [place], [place] [address] Sodium [Moles/Vol] 136 mmol/L Normal 136-145 [facility] Comment on above: Performed By: #### M AG #### [facility] [address] [place], [place] [address] CONSULT PROGon 09-02-2019 CONSULT PROG HNO ID: [id number] Author: Doris Eden Service: Endocrinology Author Type: Physician Type: Consult Progress Note Filed: 09/02/2019 1:35 PM Note Text: ENDOCRINOLOGY CONSULT PROGRESS NOTE SERVICE DATE: 09/02/2019 SERVICE TIME: 1:25 PM Subjective INTERVAL HPI: Pt followed for diabetes mellitus type 2 with complications. Tr from [place]; adm for right foot infection and gangrene; [...] 2019 TIME: 1:35 PM PAGER: [phone] Normal [facility] Hemogramon 09-02-2019 Erythrocyte distribution width (RBC) [Ratio] 14.9 % High 11.6-14.4 [facility] Comment on above: Performed By: #### C BC1 #### [address] [address] Hematocrit (Bld) [Volume fraction] 33.4 % Low 40.1-51.0 [facility] Comment on above: Performed By: #### C BC1 #### [address] [address] Hemoglobin (Bld) [Mass/Vol] 10.3 g/dL Low 13.7-17.5 [facility] Comment on above: Performed By: #### C BC1 #### [facility] [address] [place], [place] [address] MCH (RBC) [Entitic mass] 28.1 pg Normal 25.7-32.2 [facility] Comment on above: Performed By: #### C BC1 #### [facility] [address] [place], [place] [address] MCHC (RBC) [Mass/Vol] 30.8 % Low 32.3-36.5 [facility] Comment on above: Performed By: #### C BC1 #### [facility] [address] [place] [address] MCV (RBC) [Entitic vol] 91.0 fL Normal 83.2-95.6 [facility] Comment on above: Performed By: #### C BC1 #### [facility] [address] [place] [address] Platelet mean volume (Bld) [Entitic vol] 9.7 fL Normal 8.7-12.0 [facility] Comment on above: Performed By: #### C BC1 #### [facility] [address] [place] [address] Platelets (Bld) [#/Vol] 425 thou/cmm High 141-365 [facility] Comment on above: Performed By: #### C BC1 #### [facility] [address] [place], [place] [address] RBC (Bld) [#/Vol] 3.67 mil/cmm Low 4.63-6.08 [facility] Comment on above: Performed By: #### C BC1 #### [facility] [address] [place], [place] [address] RDW SD 47.8 fl High 36.1-45.8 [facility] Comment on above: Performed By: #### C BC1 #### [facility] [address] [place], [place] [address] WBC (Bld) [#/Vol] 9.66 thou/cmm High 4.23-9.07 [facility] Comment on above: Performed By: #### C BC1 #### [facility] [address] [place], [place] [address] Magnesium Bloodon 09-02-2019 Magnesium [Mass/Vol] 1.5 mg/dL Low 1.6-2.6 [facility] Comment on above: Performed By: #### M AG #### [facility] [address] [place], [place] [address] OPERATIVE NOon 09-02-2019 OPERATIVE NO HNO ID: [id number] Author: Jovanny Parmar Service: Vascular Surgery Author Type: Physician Type: Operative Report Filed: 09/30/2019 2:43 PM Note Text: [facility] - Operative Report ELIZABETH MODI : 1940 AGE: 79. SEX: M PATIENT TYPE: I HOSP SVC: KEENAN LOCATION: [facility] ATTENDING PHYSICIAN: JOVANNY PARMAR CSN NUMBER: [id number] DATE OF SURGERY/PROCEDURE: 09/02/2019 INCISION/PROCEDURE START TIME: 12:28 PM INCISION CLOSE/PROCEDURE END TIME: 2:14 PM PREOPERATIVE DIAGNOSIS: Gangrene, right lower extremity. POSTOPERATIVE DIAGNOSIS: Gangrene, right lower extremity. SURGEON: Jovanny Parmar MD VERTICAL MILL OPERATOR: Francine Roberts. SURGERY/PROCEDURE: Right femoral endarterectomy with [...] recovery in stable condition. 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 Reasonable efforts were made to correct any dictation errors that resulted due to the programming of this software but some may still be present. [facility] PROGRESS HNO ID: [id number] Author: Francine Roberts Service: Vascular Surgery Author [...] questions or concerns Mon-Mon 6a-5p please page [phone]. After 5pm and on Weekends and Holidays, please page [phone] if in ICU or [phone] if on RNF. Subjective SUBJECTIVE: NAEON. 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 [facility] PT EDon 09-02-2019 PT ED HNO ID: [id number] Author: Chelsea (Rn) Shun Paz RN Service: [...] Estrella RN In Department: [place] SURGERY OR Normal [facility] Phosphorus Bloodon 0 Phosphate [Mass/Vol] 2.9 mg/dL Normal 2.5-4.9 [facility] Comment on above: Performed By: #### P 8 #### [place] [address] CONSULT PROGon 09-01-2019 CONSULT PROG HNO ID: [id number] Author: Doris Eden Service: Endocrinology Author Type: Physician Type: Consult Progress Note Filed: 09/01/2019 9:12 AM Note Text: ENDOCRINOLOGY CONSULT PROGRESS NOTE SERVICE DATE: 09/01/2019 SERVICE TIME: 9:05 AM Subjective INTERVAL HPI: Pt followed for diabetes mellitus type 2 with complications. Tr from [place]; adm for right foot infection and gangrene; [...] 2019 TIME: 9:12 AM PAGER: [phone] Normal [facility] Hemogramon 09-01-2019 Erythrocyte distribution width (RBC) [Ratio] 14.9 % High 11.6-14.4 [facility] Comment on above: Performed By: #### M AG #### [place] [address] Hematocrit (Bld) [Volume fraction] 27.1 % Low 40.1-51.0 [facility] Comment on above: Performed By: #### M AG #### [place] [address] Hemoglobin (Bld) [Mass/Vol] 8.5 g/dL Low 13.7-17.5 [facility] Comment on above: Performed By: #### M AG #### [place] [address] MCH (RBC) [Entitic mass] 28.1 pg Normal 25.7-32.2 [facility] Comment on above: Performed By: #### M AG #### [place] [address] MCHC (RBC) [Mass/Vol] 31.4 % Low 32.3-36.5 [facility] Comment on above: Performed By: #### M AG #### [place] [address] MCV (RBC) [Entitic vol] 89.7 fL Normal 83.2-95.6 [facility] Comment on above: Performed By: #### M AG #### [address] [address] Platelet mean volume (Bld) [Entitic vol] 9.4 fL Normal 8.7-12.0 [facility] Comment on above: Performed By: #### M AG #### [facility] [address] [place], [place] [address] Platelets (Bld) [#/Vol] 334 thou/cmm Normal 141-365 [facility] Comment on above: Performed By: #### M AG #### [facility] [address] [place] [id number] RBC (Bld) [#/Vol] 3.02 mil/cmm Low 4.63-6.08 [facility] Comment on above: Performed By: #### M AG #### [facility] [address] [place] [address] RDW SD 46.4 fl High 36.1-45.8 [facility] Comment on above: Performed By: #### M AG #### [facility] [address] [place] [id number] WBC (Bld) [#/Vol] 7.69 thou/cmm Normal 4.23-9.07 [facility] Comment on above: Performed By: #### M AG #### [facility] [address] [place] [id number] PROGRESSon 09-01-2019 PROGRESS HNO ID: [id number] Author: Zack Jenkins Service: Hospital Medicine Author Type: Physician Type: Progress Notes Filed: 09/01/2019 4:10 PM Note Text: DEPARTMENT OF HOSPITAL MEDICINE PROGRESS NOTE SERVICE DATE: 09/01/2019 SERVICE TIME: 4:07 PM Hospital Medicine/Primary Attending: Zack Jenkins, DO NIGHT AND WEEKEND COVERAGE: After 7pm please page [phone] CHIEF COMPLAINT: No new complaints SUBJECTIVE: Pt [...] amputation -Angio 08/26 showing partial occlusion 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 Reasonable efforts were made to correct any dictation errors that resulted due to the programming of this software but some may still be present. Normal [facility] PROGRESS HNO ID: [id number] Author: Francine Roberts Service: Vascular Surgery Author [...] questions or concerns Mon-Fri 6a-5p please page [phone]. 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 Normal [facility] THERAPY NTon 09-01-2019 THERAPY NT HNO ID: [id number] Author: Sheridan (PtSmitha Moncada Service: Physical Therapy Author Type: Physical Therapist Type: Therapy (PT/OT/Speech/Resp) Filed: 09/01/2019 4:02 PM Note Text: Physical Therapy Treatment SERVICE DATE: 09/01/2019 SERVICE TIME: 1520 to 1538 ROOM: [id number] Recommended Discharge Disposition: Acute Rehab Justification For [...] l;Muscle Weakness (generalized) Interventions Provided: Therapeutic Activity (45935) Therapeutic Activity (62202) Treatment Minutes: 18 1 unit Skilled Intervention(s): Functional mobility performed as described below. In EOB sitting for improved strength, ROM, conditioning, function: L ankle DF/PF, glute sets, LAQs, marching, abd/iso add, 2 x 10 reps each; instructed ex technique with short rest breaks needed. Pt education re: rehab process s/p amputation; practiced scooting along EOB for carryover to bymdngl-iu-llgemfk transfers, pt education / cues for increased [...] Lives With: Self/Alone Assistance Available: time study observer Entry To Home: Stairs;With Rail Number Of [...] Toilet/Commode Gait Stairs Curb Step Car Transfer -HLM: 3: Sit at edge of bed Please see discipline specific clinical documentation flowsheet for complete details for this therapy evaluation/treatment. SIGNATURE: Sheridan Moncada, PT PATIENT NAME: Elizabeth Modi DATE: September 01, 2019 TIME: 3:55 PM Normal [facility] Basic Panelon 08-31-2019 Creatinine [Mass/Vol] 0.76 mg/dL Normal 0.67-1.17 [facility] Comment on above: Result Comment: Use of this assay is not recommended for patients undergoing treatment with phenindione, due to the potential for falsely depressed results. Performed By: #### C _ANA #### [place] [address] Anion gap [Moles/Vol] 11 mmol/L Normal 8-16 [facility] Comment on above: Performed By: #### C _ANA #### [place] [address] Calcium [Mass/Vol] 8.2 mg/dL Low 8.5-10.1 [facility] Comment on above: Performed By: #### C _ANA #### [address] [place], [place] [address] CO2 [Moles/Vol] 23 mmol/L Normal 21-32 [facility] Comment on above: Performed By: #### C _ANA #### [facility] [address] [place], [place] [address] Glucose [Mass/Vol] 85 mg/dL Normal 70-99 [facility] Comment on above: Performed By: #### C _ANA #### [facility] [address] [place], [place] [address] Urea nitrogen [Mass/Vol] 21 mg/dL High 7-18 [facility] Comment on above: Performed By: #### C _ANA #### [facility] [address] [place], [place] [address] Chloride [Moles/Vol] 106 mmol/L Normal 98-107 [facility] Comment on above: Performed By: #### C _ANA #### [facility] [address] [place], [place] [address] Potassium [Moles/Vol] 3.9 mmol/L Normal 3.5-5.1 [facility] Comment on above: Performed By: #### C _ANA #### [facility] [address] [place], [place] [address] Sodium [Moles/Vol] 136 mmol/L Normal 136-145 [facility] Comment on above: Performed By: #### C _ANA #### [facility] [address] [place], [place] [address] CONSULT PROGon 08-31-2019 CONSULT PROG HNO ID: [id number] Author: Doris Eden Service: Endocrinology Author Type: Physician Type: Consult Progress Note Filed: 08/31/2019 8:08 AM Note Text: ENDOCRINOLOGY CONSULT PROGRESS NOTE SERVICE DATE: 08/31/2019 SERVICE TIME: 7:50 AM Subjective INTERVAL HPI: Pt followed for diabetes mellitus type 2 with complications. Tr from [place]; adm for right foot infection and gangrene; [...] 2019 TIME: 8:08 AM PAGER: [phone] Normal [facility] Hemogramon 08-31-2019 Erythrocyte distribution width (RBC) [Ratio] 14.5 % High 11.6-14.4 [facility] Comment on above: Performed By: #### M AG #### [facility] [address] [place] [address] Hematocrit (Bld) [Volume fraction] 31.2 % Low 40.1-51.0 [facility] Comment on above: Performed By: #### M AG #### [place] [address] Hemoglobin (Bld) [Mass/Vol] 10.0 g/dL Low 13.7-17.5 [facility] Comment on above: Performed By: #### M AG #### [place] [address] MCH (RBC) [Entitic mass] 28.7 pg Normal 25.7-32.2 [facility] Comment on above: Performed By: #### M AG #### [place] [address] MCHC (RBC) [Mass/Vol] 32.1 % Low 32.3-36.5 [facility] Comment on above: Performed By: #### M AG #### [place] [address] MCV (RBC) [Entitic vol] 89.4 fL Normal 83.2-95.6 [facility] Comment on above: Performed By: #### M AG #### [place] [address] Platelet mean volume (Bld) [Entitic vol] 9.4 fL Normal 8.7-12.0 [facility] Comment on above: Performed By: #### M AG #### [address] [address] Platelets (Bld) [#/Vol] 385 thou/cmm High 141-365 [facility] Comment on above: Performed By: #### M AG #### [facility] [address] [place], [place] [address] RBC (Bld) [#/Vol] 3.49 mil/cmm Low 4.63-6.08 [facility] Comment on above: Performed By: #### M AG #### [facility] [address] [place], [place] [address] RDW SD 45.1 fl Normal 36.1-45.8 [facility] Comment on above: Performed By: #### M AG #### [facility] [address] [place], [place] [address] WBC (Bld) [#/Vol] 8.81 thou/cmm Normal 4.23-9.07 [facility] Comment on above: Performed By: #### M AG #### [facility] [address] [place], [place] [address] Magnesium Bloodon 08-31-2019 Magnesium [Mass/Vol] 1.1 mg/dL Low 1.6-2.6 [facility] Comment on above: Performed By: #### M AG #### [facility] [address] [place] [address] PROGRESSon 08-31-2019 PROGRESS HNO ID: [id number] Author: Zack Jenkins Service: Hospital Medicine Author Type: Physician Type: Progress Notes Filed: 08/31/2019 4:57 PM Note Text: DEPARTMENT OF HOSPITAL MEDICINE PROGRESS NOTE SERVICE DATE: 08/31/2019 SERVICE TIME: 4:53 PM Hospital Medicine/Primary Attending: Zack Jenkins, DO NIGHT AND WEEKEND COVERAGE: After 7pm please page [phone] CHIEF COMPLAINT: no new complaints SUBJECTIVE: Pt [...] amputation -Angio 08/26 showing partial occlusion 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 ? Disposition:?Home with [facility]?pending progress and surgery? Plan of care discussed with: Provider, RN, Patient SIGNATURE: Zack Jenkins DO PATIENT NAME: Elizabeth Modi DATE: August 31, 2019 TIME: 4:53 PM PAGER/CONTACT #: Team color pager Disclaimer: Portions of this note may have been generated using DoYouRemember voice recognition software. Reasonable efforts were made to correct any dictation errors that resulted due to the programming of this software but some may still be present. Normal [facility] PROGRESS HNO ID: [id number] Author: Francine Roberts Service: Vascular Surgery Author [...] questions or concerns Mon-Mon 6a-5p please page [phone]. After 5pm and on Weekends and Holidays, [...] 0659 08/31/19 07 - 09/01/19 0659 Shift 0531-0593 6058-7464 1287-9298 24 Hour Total 5351-9395 4098-1674 5447-4142 24 Hour Total INTAKE Shift Total OUTPUT Urine 500 083 337 9201 Void (ml) 500 337 153 8086 # of BMs Number of BMs 1 x 1 x Shift Total 500 131 064 4647 Weight (kg) 90.9 90.9 89.6 89.6 89.6 [...] on 08/27/2019 - showing partial occlusion R SEAL DELIVERY VEHICLE OFFICER - Right femoral endarterectomy on Monday, then determination on AKA/BK following that procedure - consent obtained, OK [...] ICU or 2174 if on RNF. Normal [facility] Phosphorus Bloodon 08-30-202 0 Phosphate [Mass/Vol] 3.3 mg/dL Normal 2.5-4.9 [facility] Comment on above: Performed By: #### C BC1 #### [facility] [address] [place] [address] Basic Panelon 08-30-2019 Creatinine [Mass/Vol] 0.80 mg/dL Normal 0.67-1.17 [facility] Comment on above: Result Comment: Use of this assay is not recommended for patients undergoing treatment with phenindione, due to the potential for falsely depressed results. Performed By: #### M AG #### [facility] [address] [place] [address] Anion gap [Moles/Vol] 12 mmol/L Normal 8-16 [facility] Comment on above: Performed By: #### M AG #### [facility] [address] [place] [address] Calcium [Mass/Vol] 7.7 mg/dL Low 8.5-10.1 [facility] Comment on above: Performed By: #### M AG #### [place] [address] CO2 [Moles/Vol] 24 mmol/L Normal 21-32 [facility] Comment on above: Performed By: #### M AG #### [place] [address] Glucose [Mass/Vol] 70 mg/dL Normal 70-99 [facility] Comment on above: Performed By: #### M AG #### [place] [address] Urea nitrogen [Mass/Vol] 16 mg/dL Normal 7-18 [facility] Comment on above: Performed By: #### M AG #### [address] [address] Chloride [Moles/Vol] 106 mmol/L Normal 98-107 [facility] Comment on above: Performed By: #### M AG #### [place] [address] Potassium [Moles/Vol] 4.0 mmol/L Normal 3.5-5.1 [facility] Comment on above: Performed By: #### M AG #### [facility] [address] [place], [place] [address] Sodium [Moles/Vol] 138 mmol/L Normal 136-145 [facility] Comment on above: Performed By: #### M AG #### [facility] [address] [place], [place] [address] CONSULT PROGon 08-30-2019 CONSULT PROG HNO ID: [id number] Author: Doris Eden Service: Endocrinology Author Type: Physician Type: Consult Progress Note Filed: 08/30/2019 8:57 AM Note Text: ENDOCRINOLOGY CONSULT PROGRESS NOTE SERVICE DATE: 08/30/2019 SERVICE TIME: 8:45 AM Subjective INTERVAL HPI: Pt followed for diabetes mellitus type 2 with complications. Tr from [place]; adm for right foot infection and gangrene; [...] SIGNATURE: Doris Eden MD PATIENT NAME: Elizabeth Mdoi DATE: August 30, 2019 TIME: 8:57 AM PAGER: [phone] Normal [facility] Hemogramon 08-30-2019 Erythrocyte distribution width (RBC) [Ratio] 14.1 % Normal 11.6-14.4 [facility] Comment on above: Performed By: #### C BC1 #### [address] [address] Hematocrit (Bld) [Volume fraction] 28.8 % Low 40.1-51.0 [facility] Comment on above: Performed By: #### C BC1 #### [address] [address] Hemoglobin (Bld) [Mass/Vol] 9.0 g/dL Low 13.7-17.5 [facility] Comment on above: Performed By: #### C BC1 #### [facility] [address] [place], [place] [address] MCH (RBC) [Entitic mass] 28.3 pg Normal 25.7-32.2 [facility] Comment on above: Performed By: #### C BC1 #### [address] [address] MCHC (RBC) [Mass/Vol] 31.3 % Low 32.3-36.5 [facility] Comment on above: Performed By: #### C BC1 #### [facility] [address] [place] [address] MCV (RBC) [Entitic vol] 90.6 fL Normal 83.2-95.6 [facility] Comment on above: Performed By: #### C BC1 #### [facility] [address] [place] [address] Platelet mean volume (Bld) [Entitic vol] 9.7 fL Normal 8.7-12.0 [facility] Comment on above: Performed By: #### C BC1 #### [facility] [address] [place] [address] Platelets (Bld) [#/Vol] 388 thou/cmm High 141-365 [facility] Comment on above: Performed By: #### C BC1 #### [place] [address] RBC (Bld) [#/Vol] 3.18 mil/cmm Low 4.63-6.08 [facility] Comment on above: Performed By: #### C BC1 #### [facility] [address] [place] [address] RDW SD 44.2 fl Normal 36.1-45.8 [facility] Comment on above: Performed By: #### C BC1 #### [place] [address] WBC (Bld) [#/Vol] 9.52 thou/cmm High 4.23-9.07 [facility] Comment on above: Performed By: #### C BC1 #### [place] [address] NUTRITIONon 08-30-2019 NUTRITION HNO ID: [id number] Author: Snow Serna Service: Nutrition Therapy Author Type: Registered Dietitian Type: Nutrition Filed: 08/30/2019 1:41 PM Note Text: NUTRITION THERAPY PROGRESS NOTE SERVICE DATE: 08/30/2019 SERVICE TIME: 11:33 AM Nutrition Assessment: Recommended Malnutrition Diagnosis: Moderate Protein-Calorie Malnutrition (08/22/19 1436 : Keturah (Technical Specialist Cytology) Valery) Estimated kilocalorie needs: 4070-7836 Calorie Calculation Method: 30-35 kcals/kg Estimated protein [...] August 30, 2019 TIME: 11:33 AM PAGER: [phone] [facility] PROGRESSon 08-30-2019 PROGRESS HNO ID: [id number] Author: Zack Jenkins Service: Hospital Medicine Author Type: Physician Type: Progress Notes Filed: 08/30/2019 5:31 PM Note Text: DEPARTMENT OF HOSPITAL MEDICINE PROGRESS NOTE SERVICE DATE: 08/30/2019 SERVICE TIME: 5:24 PM Hospital Medicine/Primary Attending: Zack Jenkins, DO NIGHT AND WEEKEND COVERAGE: After 7pm please page [phone] CHIEF COMPLAINT: R lower leg pain SUBJECTIVE: [...] amputation -Angio 08/26 showing partial occlusion 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 ? Disposition:?Home with [facility]?pending progress and surgery? Plan of care discussed with: Provider, RN, Patient SIGNATURE: Zack Jenkins DO PATIENT NAME: Elizabeth Modi DATE: August 30, 2019 TIME: 5:24 PM PAGER/CONTACT #: Team color pager Disclaimer: Portions of this note may have been generated using DoYouRemember voice recognition software. Reasonable efforts were made to correct any dictation errors that resulted due to the programming of this software but some may still be present. 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 Normal [facility] THERAPY NTon 08-30-2019 THERAPY NT HNO ID: [id number] Author: Tanja (Pt) Hoda Service: Physical Therapy Author Type: Physical Therapist Type: Therapy (PT/OT/Speech/Resp) Filed: 08/30/2019 5:00 PM Note Text: Physical Therapy Treatment SERVICE DATE: 08/30/2019 SERVICE TIME: 1415 to 1500 ROOM: [place] [address] Recommended Discharge Disposition: Acute Rehab Recommended Discharge [...] l;Muscle Weakness (generalized) Interventions Provided: Therapeutic Exercise (45544);Therapeutic Activity (17069) Therapeutic Exercise (83000) Treatment Minutes: 25 2 units Skilled Intervention(s): Patient completed general strengthening exercises in supine, sitting (ankle pump, quad set, gluteal set, heel slide, hip abd/add, straight leg raise, long arc quad, short arc quad, hip adductor squeeze, assisted bridging) x 15-20 reps bilateral lower extremity, with min assist, with min verbal/tactile cues for optimal muscle recruitment, muscle activation, and muscle strengthening. Therapeutic Activity (95078) Treatment Minutes: 15 1 unit Skilled Intervention(s): [...] Lives With: Self/Alone Assistance Available: time study observer Entry To Home: Stairs;With Rail Number Of [...] details for this therapy evaluation/treatment. SIGNATURE: Tanja Drummond, PT PATIENT NAME: Elizabeth Modi DATE: August 30, 2019 TIME: 4:56 PM Normal [facility] Basic Panelon 08-29-2019 Creatinine [Mass/Vol] 0.80 mg/dL Normal 0.67-1.17 [facility] Comment on above: Result Comment: Use of this assay is not recommended for patients undergoing treatment with phenindione, due to the potential for falsely depressed results. Performed By: #### C _ANA #### [address], [place] [address] Anion gap [Moles/Vol] 9 mmol/L Normal 8-16 [facility] Comment on above: Performed By: #### C _ANA #### [facility] [address] [place], [place] [address] CO2 [Moles/Vol] 27 mmol/L Normal 21-32 [facility] Comment on above: Performed By: #### C _ANA #### [facility] [address] [place], [place] [address] Glucose [Mass/Vol] 83 mg/dL Normal 70-99 [facility] Comment on above: Performed By: #### C _ANA #### [facility] [address] [place], [place] [address] Urea nitrogen [Mass/Vol] 14 mg/dL Normal 7-18 [facility] Comment on above: Performed By: #### C _ANA #### [address] [address] Calcium [Mass/Vol] 7.9 mg/dL Low 8.5-10.1 [facility] Comment on above: Performed By: #### C _ANA #### [facility] [address] [place], [place] [address] Chloride [Moles/Vol] 106 mmol/L Normal 98-107 [facility] Comment on above: Performed By: #### C _ANA #### [address] [address] Potassium [Moles/Vol] 4.0 mmol/L Normal 3.5-5.1 [facility] Comment on above: Performed By: #### C _ANA #### [address] [address] Sodium [Moles/Vol] 138 mmol/L Normal 136-145 [facility] Comment on above: Performed By: #### C _ANA #### [address] [address] CASE MANAGEMon 08-29-2019 CASE MANAGEM HNO ID: [id number] Author: Tami SantiagoRn) KAVIN Patricio Service: Care Management Author Type: Registered Nurse Type: Care Mgt Progress Note Filed: 08/29/2019 11:27 AM Note Text: CARE MANAGEMENT PROGRESS NOTE SERVICE DATE: 08/29/2019 SERVICE TIME: 11:27 AM LOS: 8 days Chart reviewed. 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 Referral to [facility]- pt will need precert. Will follow clinical progress. SIGNATURE: Tami Patricio RN PATIENT NAME: Elizabeth Modi DATE: August 29, 2019 TIME: 11:27 AM PAGER/CONTACT #: [phone] [facility] CONSULT PROGon 08-29-2019 CONSULT PROG HNO ID: [id number] Author: Luke Briones (Gurwinder) Sailaja Service: Wound/Ostomy Author Type: Nurse Practitioner Type: Consult Progress Note Filed: 08/29/2019 3:36 PM Note Text: WOUND CARE CONSULT HAND TIER NOTE SERVICE DATE: 08/29/2019 SERVICE TIME: 14:45 TIME SPENT (minutes): 30 REASON FOR CONSULT: Reevaluation of right leg wounds and overall skin check. CHIEF COMPLAINT: Recent surgery to right leg with more coming on Monday Subjective HISTORY OF PRESENT ILLNESS: Mr. Modi is a 79 year old male who is seen today with Leila Goel, Wound/tennis net maker, and presented to hospital with complaints of [...] on Monday09/02/19 for right femoral endartectomy. Obtained [employer] heel boot for patient's left heel and seat cushion. Will order patient [id number] mattress and turn and reposition every 2 hours or more often. A photo was taken of the patient's wound(s). Photos can be found under the Get Images tab on [employer]. Photos are uploaded by the wound rn transitional care and may not be immediately available for viewing. Contact the wound and ostomy care department with questions. SIGNATURE: Luke Menard APRN.GURWINDER,CWOCN PATIENT NAME: Elizabeth Modi DATE: August 29, 2019 TIME: 3:23 PM CONTACT#: [id number] [facility] CONSULT PROG HNO ID: [id number] Author: Doris Eden Service: Endocrinology Author Type: Physician Type: Consult Progress Note Filed: 08/29/2019 8:38 AM Note Text: ENDOCRINOLOGY CONSULT PROGRESS NOTE SERVICE DATE: 08/29/2019 SERVICE TIME: 8:25 AM Subjective INTERVAL HPI: Pt followed for diabetes mellitus type 2 with complications. Tr from [place]; adm for right foot infection and gangrene; [...] 2019 TIME: 8:38 AM PAGER: [phone] Normal [facility] Hemogramon 08-29-2019 Erythrocyte distribution width (RBC) [Ratio] 14.1 % Normal 11.6-14.4 [facility] Comment on above: Performed By: #### F ERR #### [facility] [address] [place] [address] Hematocrit (Bld) [Volume fraction] 27.5 % Low 40.1-51.0 [facility] Comment on above: Performed By: #### F ERR #### [place] [address] Hemoglobin (Bld) [Mass/Vol] 8.8 g/dL Low 13.7-17.5 [facility] Comment on above: Performed By: #### F ERR #### [place] [address] MCH (RBC) [Entitic mass] 29.0 pg Normal 25.7-32.2 [facility] Comment on above: Performed By: #### F ERR #### [place] [address] MCHC (RBC) [Mass/Vol] 32.0 % Low 32.3-36.5 [facility] Comment on above: Performed By: #### F ERR #### [place] [address] MCV (RBC) [Entitic vol] 90.8 fL Normal 83.2-95.6 [facility] Comment on above: Performed By: #### F ERR #### [place] [address] Nucleated RBC (Bld) [#/Vol] 0.02 thou/cmm High 0.00-0.01 [facility] Comment on above: Performed By: #### F ERR #### [facility] [address] [place], [place] [address] Nucleated RBC/100 WBC (Bld) [Ratio] 0.2 % Normal 0.0-0.2 [facility] Comment on above: Performed By: #### F ERR #### [facility] [address] [place], [place] [address] Platelet mean volume (Bld) [Entitic vol] 9.5 fL Normal 8.7-12.0 [facility] Comment on above: Performed By: #### F ERR #### [facility] [address] [place], [place] [address] Platelets (Bld) [#/Vol] 430 thou/cmm High 141-365 [facility] Comment on above: Performed By: #### F ERR #### [facility] [address] [place], [place] [address] RBC (Bld) [#/Vol] 3.03 mil/cmm Low 4.63-6.08 [facility] Comment on above: Performed By: #### F ERR #### [facility] [address] [place], [place] [address] RDW SD 45.0 fl Normal 36.1-45.8 [facility] Comment on above: Performed By: #### F ERR #### [facility] [address] [place], [place] [address] WBC (Bld) [#/Vol] 10.45 thou/cmm High 4.23-9.07 [facility] Comment on above: Performed By: #### F ERR #### [facility] [address] [place], [place] [address] Magnesium Bloodon 08-29-2019 Magnesium [Mass/Vol] 1.6 mg/dL Normal 1.6-2.6 [facility] Comment on above: Performed By: #### M AG #### [facility] [address] [place] [address] PROGRESSon 08-29-2019 PROGRESS HNO ID: [id number] Author: Zack Jenkins Service: Hospital Medicine Author Type: Physician Type: Progress Notes Filed: 08/29/2019 5:59 PM Note Text: DEPARTMENT OF HOSPITAL MEDICINE PROGRESS NOTE SERVICE DATE: 08/29/2019 SERVICE TIME: 5:56 PM Hospital Medicine/Primary Attending: Zack Jenkins DO NIGHT AND WEEKEND COVERAGE: After 7pm please page [phone] CHIEF COMPLAINT: no new complaints SUBJECTIVE: Pt [...] amputation -Angio 08/26 showing partial occlusion 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 Disposition: Home with [facility] pending progress and surgery Plan of care discussed with: Provider, RN, Patient SIGNATURE: Zack Jenkins DO PATIENT NAME: Elizabeth Modi DATE: August 29, 2019 TIME: 5:56 PM PAGER/CONTACT #: Team color pager Disclaimer: Portions of this note may have been generated using DoYouRemember voice recognition software. Reasonable efforts were made to correct any dictation errors that resulted due to the programming of this software but some may still be present. Normal [facility] PROGRESS HNO ID: [id number] Author: Tom Prescott DO Service: General Surgery [...] questions or concerns Mon-Mon 6a-5p please page [phone]. After 5pm and on Weekends and Holidays, please page [phone] if in ICU or 2179 if on [...] kg/m? O2 Therapy: Room Air IANDO: Date 08/28/19 0700 - 08/29/19 0659 08/29/19 0700 - 08/30/19 0659 Shift 2134-0197 0789-7618 3141-7002 24 Hour Total 4721-2242 0070-0847 7498-0226 24 Hour Total INTAKE Shift Total OUTPUT [...] ICU or 2174 if on RNF. Normal [facility] THERAPY NTon 08-29-2019 THERAPY NT HNO ID: [id number] Author: Tanja (Pt) Hoda Service: Physical Therapy Author Type: Physical Therapist Type: Therapy (PT/OT/Speech/Resp) Filed: 08/29/2019 3:21 PM Note Text: Physical Therapy Treatment SERVICE DATE: 08/29/2019 SERVICE TIME: 1138 to 1208 ROOM: [place] [address] Recommended Discharge Disposition: Acute Rehab Recommended Discharge [...] l;Muscle Weakness (generalized) Interventions Provided: Therapeutic Exercise (46115);Therapeutic Activity (65081) Therapeutic Exercise (16605) Treatment Minutes: 15 1 unit Skilled Intervention(s): [...] extremity general strengthening therapeutic exercise. Therapeutic Activity (97856) Treatment Minutes: 10 1 unit Skilled Intervention(s): [...] Lives With: Self/Alone Assistance Available: time study observer Entry To Home: Stairs;With Rail Number Of [...] August 29, 2019 TIME: 3:09 PM Normal [facility] Basic Panelon 08-28-2019 Creatinine [Mass/Vol] 0.91 mg/dL Normal 0.67-1.17 [facility] Comment on above: Result Comment: Use of this assay is not recommended for patients undergoing treatment with phenindione, due to the potential for falsely depressed results. Performed By: #### C _ANA #### [place] [address] Anion gap [Moles/Vol] 10 mmol/L Normal 8-16 [facility] Comment on above: Performed By: #### C _ANA #### [facility] [address] [place], [place] [address] CO2 [Moles/Vol] 27 mmol/L Normal 21-32 [facility] Comment on above: Performed By: #### C _ANA #### [facility] [address] [place], [place] [address] Urea nitrogen [Mass/Vol] 14 mg/dL Normal 7-18 [facility] Comment on above: Performed By: #### C _ANA #### [facility] [address] [place], [place] [address] Calcium [Mass/Vol] 7.5 mg/dL Low 8.5-10.1 [facility] Comment on above: Performed By: #### C _ANA #### [facility] [address] [place], [place] [address] Glucose [Mass/Vol] 108 mg/dL High 70-99 [facility] Comment on above: Performed By: #### C _ANA #### [facility] [address] [place] [address] Chloride [Moles/Vol] 105 mmol/L Normal 98-107 [facility] Comment on above: Performed By: #### C _ANA #### [facility] [address] [place], [place] [address] Potassium [Moles/Vol] 4.1 mmol/L Normal 3.5-5.1 [facility] Comment on above: Performed By: #### C _ANA #### [place] [address] Sodium [Moles/Vol] 138 mmol/L Normal 136-145 [facility] Comment on above: Performed By: #### C _ANA #### [facility] [address] [place] [address] CASE MANAGEMon 08-28-2019 CASE MANAGEM HNO ID: [id number] Author: Tami SantiagoRn) KAVIN Patricio Service: Care Management Author Type: Registered Nurse Type: Care Mgt Progress Note Filed: 08/28/2019 1:57 PM Note Text: CARE MANAGEMENT PROGRESS NOTE SERVICE DATE: 08/28/2019 SERVICE TIME: 1:56 PM LOS: 7 days Chart reviewed. 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 Referral to [facility]- pt will need precert. Will follow clinical progress. SIGNATURE: Tami Patricio RN PATIENT NAME: Elizabeth Modi DATE: August 28, 2019 TIME: 1:56 PM PAGER/CONTACT #: [phone] Normal [facility] CONSULT PROGon 08-28-2019 CONSULT PROG HNO ID: [id number] Author: Doris Eden Service: Endocrinology Author Type: Physician Type: Consult Progress Note Filed: 08/28/2019 8:31 AM Note Text: ENDOCRINOLOGY CONSULT PROGRESS NOTE SERVICE DATE: 08/28/2019 SERVICE TIME: 8:15 AM Subjective INTERVAL HPI: Pt followed for diabetes mellitus type 2 with complications. Tr from [place]; adm for right foot infection and gangrene; [...] prandial humalog 4 units qac tid on 3/7 pm. BS high on 08/24 night; pt [...] August 28, 2019 TIME: 8:31 AM PAGER: [phone] Normal [facility] Hemogram/Diffon 08-28-2019 Abs Immature Grans 0.21 thou/cmm High 0.00-0.05 [facility] Comment on above: Performed By: #### G LMET #### [place] [address] Abs Neut (ANC) 7.25 thou/cmm High 1.78-5.38 [facility] Comment on above: Performed By: #### G LMET #### [place] [address] Abs. Baso 0.02 thou/cmm Normal 0.01-0.08 [facility] Comment on above: Performed By: #### G LMET #### [place] [address] Abs. Davison 0.96 thou/cmm High 0.30-0.82 [facility] Comment on above: Performed By: #### G LMET #### [place] [address] Basophils/100 WBC (Bld) 0.2 % Normal [facility] Comment on above: Performed By: #### G LMET #### [place] [address] Eosinophils (Bld) [#/Vol] 0.16 thou/cmm Normal 0.04-0. 54 [facility] Comment on above: Performed By: #### G LMET #### [facility] [address] [place], [place] [address] Eosinophils/100 WBC (Bld) 1.5 % Normal [facility] Comment on above: Performed By: #### G LMET #### [facility] [address] [place] [address] Erythrocyte distribution width (RBC) [Ratio] 13.4 % Normal 11.6-14.4 [facility] Comment on above: Performed By: #### G LMET #### [facility] [address] [place] [address] Hematocrit (Bld) [Volume fraction] 29.8 % Low 40.1-51.0 [facility] Comment on above: Performed By: #### G LMET #### [place] [address] Hemoglobin (Bld) [Mass/Vol] 9.5 g/dL Low 13.7-17.5 [facility] Comment on above: Performed By: #### G LMET #### [place] [address] Immature Grans 2.00 % Normal [facility] Comment on above: Performed By: #### G LMET #### [facility] [address] [place] [address] Lymphocytes (Bld) [#/Vol] 1.82 thou/cmm Normal 0.84-2. 85 [facility] Comment on above: Performed By: #### G LMET #### [facility] [address] [place] [address] Lymphocytes/100 WBC (Bld) 17.5 % Normal [facility] Comment on above: Performed By: #### G LMET #### [facility] [address] [place] [address] MCH (RBC) [Entitic mass] 28.4 pg Normal 25.7-32.2 [facility] Comment on above: Performed By: #### G LMET #### [place] [id number] MCHC (RBC) [Mass/Vol] 31.9 % Low 32.3-36.5 [facility] Comment on above: Performed By: #### G LMET #### [facility] [address] [place] [address] MCV (RBC) [Entitic vol] 89.2 fL Normal 83.2-95.6 [facility] Comment on above: Performed By: #### G LMET #### [facility] [address] [place] [address] Monocytes/100 WBC (Bld) 9.2 % Normal [facility] Comment on above: Performed By: #### G LMET #### [facility] [address] [place] [address] Platelet mean volume (Bld) [Entitic vol] 9.6 fL Normal 8.7-12.0 [facility] Comment on above: Performed By: #### G LMET #### [facility] [address] [place] [address] Platelets (Bld) [#/Vol] 390 thou/cmm High 141-365 [facility] Comment on above: Performed By: #### G LMET #### [facility] [address] [place] [address] RBC (Bld) [#/Vol] 3.34 mil/cmm Low 4.63-6.08 [facility] Comment on above: Performed By: #### G LMET #### [facility] [address] [place] [address] RDW SD 43.3 fl Normal 36.1-45.8 [facility] Comment on above: Performed By: #### G LMET #### [facility] [address] [place] [address] Seg Neutrophil 69.6 % Normal [facility] Comment on above: Performed By: #### G LMET #### [facility] [address] [place] [address] WBC (Bld) [#/Vol] 10.42 thou/cmm High 4.23-9.07 [facility] Comment on above: Performed By: #### G LMET #### [facility] [facility] [address] [place], [place] [address] Magnesium Bloodon 08-28-2019 Magnesium [Mass/Vol] 1.1 mg/dL Low 1.6-2.6 [facility] Comment on above: Performed By: #### F ERR #### [facility] [address] [place], [place] [address] NM CARDIAC PERF STRESS/PHARM on 08-28-2019 NM CARDIAC PERF STRESS/PHARM * * *Final Report* * * DATE OF EXAM: Aug 28 2019 9:30AM [place] 0006 - NM CARDIAC PERF STRESS/PHARM / [...] 60 minutes later. See administered doses below. [facility] Date of service: 08/28/2019 9:30:00 AM [...] during test. Final ------ Stress ECG Report: [facility] Date of service: 08/28/2019 9:30:00 AM Ordering physician: GOLD Estes Specialist: Tawana Larson Student Driving Instructor: Libertad Rose Stress ECG interpreting physician: Shira [...] for age. The double product achieved was [address]. Peak heart rate was 98 bpm and [...] index (CRI): 0.51 Rate Pressure Product (RPP): 00919 Reason for test termination: End of Protocol. [...] chest sx during test Final ------ Stress Sap Basis Administrator Report: [facility] Date of service: 08/28/2019 9:30:00 AM Supervising physician: Shira Zuleta MD PATIENT: Name: ELIZABETH MODI Age: 79 years Gender: M The supervising physician was present during the stress procedure. Final Pharmacy Informaticist: RICHARD Transcribe Date/Time: Aug 28 2019 9:30A Dictated by : IGNACIA MENDEZ MD This examination was interpreted and the report reviewed and electronically signed by: IGNACIA MENDEZ MD on Aug 28 2019 3:54PM EST Normal [facility] NURSING PROGon 08-28-2019 NURSING PROG HNO ID: [id number] Author: Tawana (Rn) KAVIN Larson Service: Cardiovascular Testing Author Type: Registered Nurse Type: Nursing Progress Note Filed: 08/28/2019 2:58 PM Note Text: Dr Zuleta notified of labs prior to testing.Lexiscan Nuclear Stress Test procedure explained. Patient verbalized understanding and test completed with post nuclear scan to follow. Normal [facility] OPERATIVE NOon 08-28-2019 OPERATIVE NO HNO ID: [id number] Author: Jovanny Parmar Service: Vascular Surgery Author Type: Physician Type: Operative Report Filed: 08/29/2019 3:01 PM Note Text: [facility] - Operative Report ELIZABETH MODI : 1940 AGE: 79. SEX: M PATIENT TYPE: I HOSP SVC: INTM LOCATION: [id number] ATTENDING PHYSICIAN: Jovanny Parmar MD CSN NUMBER: [id number] DATE OF SURGERY/PROCEDURE: 08/27/2019 INCISION/PROCEDURE START TIME: 10:01 AM INCISION CLOSE/PROCEDURE END TIME: 10:55 AM PREOPERATIVE DIAGNOSIS: Gangrene. POSTOPERATIVE DIAGNOSIS: Gangrene. SURGEON: Jovanny Parmar MD VERTICAL MILL OPERATOR: Tom Prescott. SURGERY/PROCEDURE: Angiogram with bilateral lower [...] Recovery in stable condition. Jovanny Parmar MD LM:[id number] Normal [facility] PROGRESSon 08-28-2019 PROGRESS HNO ID: [id number] Author: Zack Jenkins Service: Hospital Medicine Author Type: Physician Type: Progress Notes Filed: 08/28/2019 6:10 PM Note Text: DEPARTMENT OF HOSPITAL MEDICINE PROGRESS NOTE SERVICE DATE: 08/28/2019 SERVICE TIME: 6:05 PM Hospital Medicine/Primary Attending: Zack Jenkins, DO NIGHT AND WEEKEND COVERAGE: After 7pm please page [phone] CHIEF COMPLAINT: No new complaints SUBJECTIVE: Pt [...] the last 24 hours. MG/PHOS: Recent Labs 08/28/19 0322 MG 1.1* P 3.3 Renal Panel: Recent Labs 08/28/19 0322 CREAT 0.91 BUN 14 GLUC 108* CA 7.5* P 3.3 CHLOR 105 K 4.1 CO2 27 NA 138 Heme: No results for input(s): RETICP, ABSRETIC, LD, STEPHAN, FE, TIBC, TRANSFERSAT in the last 24 hours. 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 Reasonable efforts were made to correct any dictation errors that resulted due to the programming of this software but some may still be present. Normal [facility] PROGRESS HNO ID: [id number] Author: Lula Posada (Rt) Service: Radiology Author Type: Heat Seal Operator Type: Progress Notes Filed: 08/28/2019 3:12 PM [...] next appointment PROCEDURE TYPE: NM Stress: 12.2mCi Sx27n-Ixnsivr was administered IV for Rest Imaging at 1250 by ms. 35.9 mCi Mf33a-Gioamoa was administered IV for Stress Imaging at 240 by ty. ADMINISTRATION TIME: 1250 PATIENT DISCHARGED TO: Patient taken to IP transport area for return to RNF/ICU/ED. A Diagnostic radioactive procedure has taken place, with no further precautions necessary other than routine body substance precautions. More information regarding radiation safety can be found using this link: [email or web address] [email or web address] SIGNATURE: RT Albino PATIENT NAME: Elizabeth Modi DATE: August 28, 2019 TIME: 3:11 PM PAGER/CONTACT #: Mela [facility] PROGRESS HNO ID: [id number] Author: Francine Roberts Service: Vascular Surgery Author [...] questions or concerns Mon-Fri 6a-5p please page [phone]. After 5pm and on Weekends and Holidays, please page [phone] if in ICU or [phone] if on RNF. Subjective SUBJECTIVE: NAEON. Denies [...] kg/m? O2 Therapy: Room Air IANDO: Date 08/27/19 07 - 08/28/19 0608/28/19 07 - 08/29/19 0659 Shift 3807-1527 8342-7831 9473-1747 24 Hour Total 3551-8668 2873-8373 8202-7378 24 Hour Total INTAKE PO 30 30 [...] able, out of bed to chair - [facility] - Plan for OR Monday for [...] ICU or 2174 if on RNF. Normal [facility] Phosphorus Bloodon 0 Phosphate [Mass/Vol] 3.3 mg/dL Normal 2.5-4.9 [facility] Comment on above: Performed By: #### P 8 #### [place] [address] THERAPY NTon 08-28-2019 THERAPY NT HNO ID: [id number] Author: Tanja SantiagoPtSmitha Drummond Service: Physical Therapy Author Type: Physical Therapist Type: Therapy (PT/OT/Speech/Resp) Filed: 08/28/2019 3:32 PM Note Text: PHYSICAL THERAPY MISSED VISIT SERVICE DATE: 08/28/2019 SERVICE TIME: 1529 to 1529 ROOM: [place] [address] Attempted Treatment. Patient not seen due to Test/Procedure(out of room for stress test). Will reattempt as able. SIGNATURE: Tanja Drummond PT PATIENT NAME: Elizabeth Modi DATE: August 28, 2019 TIME: 3:30 PM Normal [facility] THERAPY NT HNO ID: [id number] Author: An SantiagoOtr/Vickie Miller Service: Occupational Therapy Author Type: Occupational Therapist Type: Therapy (PT/OT/Speech/Resp) Filed: 08/28/2019 11:27 AM Note Text: Occupational Therapy Treatment SERVICE DATE: 08/28/2019 SERVICE TIME: 1026 to 1105 ROOM: [id number] Recommended Discharge Disposition: Acute Rehab Recommended Discharge [...] (ADL);General symptoms and signs-other Interventions Provided: Self Residential Management (45[address]) Self Residential Management (28507) Treatment Minutes: 39 3 units Skilled Intervention(s):Full [...] for surgery. Reason for Occupational Therapy Consult: RUG RENOVATOR Relevant Past Medical History: thyroid, HTN, DM, [...] Lives With: Self/Alone Assistance Available: time study observer Entry To Home: Stairs;With Rail Number Of [...] DATE: August 28, 2019 TIME: 11:17 AM [facility] ANES [place] 08-27-2019 ANES POST HNO ID: [id number] Author: Oanh Pugh Service: Anesthesiology Author Type: [...] 27, 2019 TIME: 5:16 PM PAGER/CONTACT #: [facility] ANES PREOPon 08-27-2019 ANES PREOP HNO ID: [id number] Author: Jesse Jimenez Service: Anesthesiology Author Type: [...] MEALS Doris Midha 3 Units at 08/26/19 180 - [MAR Hold due to Transfer] gabapentin 100 mg cap(s) (NEURONTIN) 100 mg ORAL q 8 H Jennifer (Res) Horattas 100 mg at 08/27/19 0544 - [MAR Hold due to Transfer] metoprolol succinate ER 25 mg tab(s) (TOPROL XL) 25 mg ORAL DAILY Jennifer (Res) Horattas 25 mg at 08/27/19 0806 - [MAR [...] MEALS Doris Midha 1,000 mg at 08/26/19 180 - [MAR Hold due to Transfer] insulin glargine 10 Units pen (long acting) (LANTUS SOLOSTAR, BASAGLAR KWIKPEN) 10 Units SUBCUTANEOUS AT BEDTIME Doris Midha 10 Units at 08/26/192113 - [MAR Hold due to Transfer] heparin 5,000 Units injection 5,000 Units SUBCUTANEOUS q 12 H Jennifer (Res) Horattas 5,000 Units at 08/26/192112 - [MAR Hold due to Transfer] ondansetron 4 mg tab(s) (ZOFRAN) 4 mg ORAL q 6 H PRN Jennifer (Res) Horattas Or - [MAR Hold due to Transfer] ondansetron (PF) 4 mg injection (ZOFRAN) 4 mg INTRAVENOUS q 6 H PRN Jennifer (Res) Horattas [...] August 27, 2019 TIME: 11:00 AM CSN: [id number] [facility] BRIEF OP NOTon 08-27-2019 BRIEF OP NOT HNO ID: [id number] Author: Tom Prescott DO Service: General Surgery [...] BRIEF OPERATIVE / PROCEDURE NOTE LOG ID: [id number] SURGERY/PROCEDURE DATE: 08/27/2019 INCISION/PROCEDURE START TIME: 10:01 AM INCISION CLOSE/PROCEDURE END TIME: 10:55 AM SURGEON(S)/PROCEDURALI ST(S) AND VERTICAL MILL OPERATOR(S): Surgeon(s) and Role: * Jovanny Parmar - Primary * Tom Prescott DO - Resident - Assisting [employer] Intelligence: Lori Schmid SA SURGERY/PROCEDURE(S): Diagnostic bilatera lower extremity angiogram ANESTHESIA: Monitored Anesthesia Care FINDINGS: 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 ESTIMATED BLOOD LOSS: 5 mls SPECIMENS: None COMPLICATIONS: None PRE-OP/PRE-PROCEDURE DIAGNOSIS: Right lower extremity ischemia, wet gangreen POST-OP/POST-PROCEDURE DIAGNOSIS: Same as Preop SIGNATURE: Tom Prescott DO PATIENT NAME: Elizabeth Modi DATE: August 27, 2019 TIME: 11:08 AM PAGER/CONTACT #: Mela [facility] CONSULTon 08-27-2019 CONSULT HNO ID: [id number] Author: Gold Sullivan Service: Cardiovascular Medicine Author [...] 27, 2019 TIME: 3:27 PM PAGER/CONTACT #: [phone] [facility] CONSULT PROGoerum 08-27-2019 CONSULT PROG HNO ID: [id number] Author: Doris Eden Service: Endocrinology Author Type: Physician Type: Consult Progress Note Filed: 08/27/2019 8:02 AM Note Text: ENDOCRINOLOGY CONSULT PROGRESS NOTE SERVICE DATE: 08/27/2019 SERVICE TIME: 7:50 AM Subjective INTERVAL HPI: Pt followed for diabetes mellitus type 2 with complications. Tr from [place]; adm for right foot infection and gangrene; [...] August 27, 2019 TIME: 8:02 AM PAGER: [phone] Normal [facility] IR ABDOMEN ANGIO W/ RUNOFFon 08-27-2019 IR ABDOMEN ANGIO W/ RUNOFF * * *Final Report* * * DATE OF EXAM: Aug 27 2019 11:22AM [facility] 0993 - IR ABDOMEN ANGIO W/ RUNOFF [...] Left reconstitution at the above-knee popliteal artery. [facility] Transcribe Date/Time: Aug 29 2019 1:09P Dictated by : JOVANNY PARMAR MD This examination was interpreted and the report reviewed and electronically signed by: JOVANNY PARMAR MD on Aug 29 2019 1:12PM EST Normal [facility] NUTRITIONon 08-27-2019 NUTRITION HNO ID: [id number] Author: Carine Singh Service: Nutrition Therapy Author Type: Registered Dietitian Type: Nutrition Filed: 08/27/2019 3:14 PM Note Text: NUTRITION THERAPY PROGRESS NOTE SERVICE DATE: 08/27/2019 SERVICE TIME: 2:20 PM Nutrition Assessment: Recommended Malnutrition Diagnosis: Moderate Protein-Calorie Malnutrition (08/22/19 1436 : Keturah (Technical Specialist Cytology) Valery) Estimated kilocalorie needs: 5517-8674 Calorie Calculation Method: 30-35 kcals/kg Estimated protein [...] August 27, 2019 TIME: 2:20 PM PAGER: [phone] Normal [facility] PROGRESSon 08-27-2019 PROGRESS HNO ID: [id number] Author: Tom Prescott DO Service: General Surgery [...] or 2178 if on RNF. Subjective SUBJECTIVE: Patient seen and examined this morning, SARATH. He denies any leg pain, moving the [...] Therapy: Room Air IANDO: Date 08/26/19699 - 08/27/1965808/27/19699 - 08/28/19 0659 Shift 4153-4814 5746-4309 9899-1697 24 Hour Total 0263-8598 0232-8797 0729-8471 24 Hour Total INTAKE PO 30 30 [...] questions or concerns Mon-Fri 6a-5p please page [phone]. After 5pm and on Weekends and Holidays, please page [phone] if in ICU or [phone] if on RNF. Normal [facility] PROGRESS HNO ID: [id number] Author: Sue Bianchi Service: Hospital Medicine Author Type: Physician Type: Progress Notes Filed: 08/27/2019 7:27 AM Note Text: DEPARTMENT OF HOSPITAL MEDICINE PROGRESS NOTE SERVICE DATE: 08/27/2019 SERVICE TIME: 7:24 AM Hospital Medicine/Primary Attending: Sue Bianchi, DO NIGHT AND WEEKEND COVERAGE: After 7pm, please call cross cover pager #[phone] Subjective INTERVAL HPI: Patient seen and examined. 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 2 to 12 grossly intact, [...] 08/21/191914 vte non-pharmacologic prophylaxis - none indicated (pr,mo) 08/21/191914 activity - mobilize patient (pr,mo) VTE Prophylaxis: VTE prophylaxis appropriate Disposition: Home with [facility] Plan of care discussed with: Provider, RN, Patient SIGNATURE: Sue Bianchi DO PATIENT NAME: Elizabeth Modi DATE: August 27, 2019 TIME:7:24 AM PAGER/CONTACT #: [phone] Normal [facility] THERAPY NTon 08-27-2019 THERAPY NT HNO ID: [id number] Author: Tanja SantiagoPt) Hoda Service: Physical Therapy Author Type: Physical Therapist Type: Therapy (PT/OT/Speech/Resp) Filed: 08/27/2019 9:33 AM Note Text: PHYSICAL THERAPY MISSED VISIT SERVICE DATE: 08/27/2019 SERVICE TIME: 0932 to 0932 ROOM: [place] Attempted Treatment. Patient not seen due to Test/Procedure(at angiogram). Will follow. SIGNATURE: Tanja Drummond PT PATIENT NAME: Elizabeth Modi DATE: August 27, 2019 TIME: 9:33 AM Normal [facility] THERAPY NT HNO ID: [id number] Author: Maricarmen Ochoar/Vickie Good Service: Occupational Therapy Author Type: Occupational Therapist Type: Therapy (PT/OT/Speech/Resp) Filed: 08/27/2019 9:12 AM Note Text: OCCUPATIONAL THERAPY MISSED VISIT SERVICE DATE: 08/27/2019 SERVICE TIME: 0911 to 0911 ROOM: [place] (S) Attempted Treatment. Patient not seen due to Surgery. Will follow and reassess post op. SIGNATURE: NADIR Hopper/Serene PATIENT NAME: Elizabeth Modi DATE: August 27, 2019 TIME: 9:12 AM Normal [facility] Basic Panelon 08-26-2019 Creatinine [Mass/Vol] 0.86 mg/dL Normal 0.67-1.17 [facility] [place] Comment on above: Result Comment: Use of this assay is not recommended for patients undergoing treatment with phenindione, due to the potential for falsely depressed results. Performed By: #### P 8 #### [facility] [address] [place], [place] [address] Anion gap [Moles/Vol] 12 mmol/L Normal 8-16 [facility] [place] Comment on above: Performed By: #### P 8 #### [address] [address] CO2 [Moles/Vol] 25 mmol/L Normal 21-32 [facility] Comment on above: Performed By: #### P 8 #### [address] [address] Urea nitrogen [Mass/Vol] 18 mg/dL Normal 7-18 [facility] Comment on above: Performed By: #### P 8 #### [address] [address] Calcium [Mass/Vol] 7.8 mg/dL Low 8.5-10.1 [facility] Comment on above: Performed By: #### P 8 #### [address] [address] Glucose [Mass/Vol] 114 mg/dL High 70-99 [facility] Comment on above: Performed By: #### P 8 #### [facility] [address] [place], [place] [address] Chloride [Moles/Vol] 104 mmol/L Normal 98-107 [facility] Comment on above: Performed By: #### P 8 #### [address] [address] Potassium [Moles/Vol] 3.8 mmol/L Normal 3.5-5.1 [facility] [place] Comment on above: Performed By: #### P 8 #### [facility] [address] [place], [place] [address] Sodium [Moles/Vol] 137 mmol/L Normal 136-145 [facility] Comment on above: Performed By: #### P 8 #### [facility] [address] [place], [place] [address] CASE MANAGEMon 08-26-2019 CASE MANAGEM HNO ID: [id number] Author: Christina Perez Service: Care Management Author Type: ? Type: Care Mgt Progress Note Filed: 08/26/2019 10:50 AM Note Text: CARE MANAGEMENT PROGRESS NOTE SERVICE DATE: 08/26/2019 SERVICE TIME: 1000 LOS: 5 days IMM Follow Up Copy Given: Yes Copy given to:: Patient Method: In Person SIGNATURE: Christina Perez PATIENT NAME: Elizabeth Modi DATE: August 26, 2019 TIME: 10:50 AM PAGER/CONTACT #: [phone] [facility] CASE MANAGEM HNO ID: [id number] Author: Tami SantiagoRn) KAVIN Patricio Service: Care Management Author Type: Registered Nurse Type: Care Mgt Progress Note Filed: 08/26/2019 10:17 AM Note Text: CARE MANAGEMENT PROGRESS NOTE SERVICE DATE: 08/26/2019 SERVICE TIME: 10:15 AM LOS: 5 days Chart reviewed. Plan now is for arteriogram likely next week and then possibly bka v aka pending results. Vascular and Ortho follow. Referral to [facility] for AR. Will follow clinical progress. SIGNATURE: Tami Patricio RN PATIENT NAME: Elizabeth Modi DATE: August 26, 2019 TIME: 10:15 AM PAGER/CONTACT #: [phone] [facility] CONSULT PROGon 08-26-2019 CONSULT PROG HNO ID: [id number] Author: Doris Eden Service: Endocrinology Author Type: Physician Type: Consult Progress Note Filed: 08/26/2019 8:09 AM Note Text: ENDOCRINOLOGY CONSULT PROGRESS NOTE SERVICE DATE: 08/26/2019 SERVICE TIME: 8:00 AM Subjective INTERVAL HPI: Pt followed for diabetes mellitus type 2 with complications. Tr from [place]; adm for right foot infection and gangrene; [...] August 26, 2019 TIME: 8:09 AM PAGER: [phone] Normal [facility] Hemogram/Diffon 08-26-2019 Abs Immature Grans 0.20 thou/cmm High 0.00-0.05 [facility] [place] Comment on above: Performed By: #### M AG #### [facility] [address] [place] [address] Abs Neut (ANC) 6.48 thou/cmm High 1.78-5.38 [facility] Comment on above: Performed By: #### M AG #### [facility] [address] [place] [address] Abs. Baso 0.04 thou/cmm Normal 0.01-0.08 [facility] Comment on above: Performed By: #### M AG #### [facility] [address] [place] [address] Abs. Davison 0.93 thou/cmm High 0.30-0.82 [facility] Comment on above: Performed By: #### M AG #### [facility] [address] [place] [address] Basophils/100 WBC (Bld) 0.4 % Normal [facility] Comment on above: Performed By: #### M AG #### [facility] [address] [place] [address] Eosinophils (Bld) [#/Vol] 0.21 thou/cmm Normal 0.04-0. 54 [facility] Comment on above: Performed By: #### M AG #### [facility] [address] [place] [address] Eosinophils/100 WBC (Bld) 2.1 % Normal [facility] Comment on above: Performed By: #### M AG #### [facility] [address] [place] [address] Erythrocyte distribution width (RBC) [Ratio] 13.3 % Normal 11.6-14.4 [facility] Comment on above: Performed By: #### M AG #### [facility] [address] [place] [address] Hematocrit (Bld) [Volume fraction] 32.3 % Low 40.1-51.0 [facility] Comment on above: Performed By: #### M AG #### [facility] [address] [place] [address] Hemoglobin (Bld) [Mass/Vol] 10.5 g/dL Low 13.7-17.5 [facility] Comment on above: Performed By: #### M AG #### [facility] [address] [place] [address] Immature Grans 2.00 % Normal [facility] Comment on above: Performed By: #### M AG #### [facility] [address] [place], [place] [address] Lymphocytes (Bld) [#/Vol] 2.34 thou/cmm Normal 0.84-2. 85 [facility] Comment on above: Performed By: #### M AG #### [facility] [address] [place], [place] [address] Lymphocytes/100 WBC (Bld) 22.9 % Normal [facility] Comment on above: Performed By: #### M AG #### [facility] [address] [place], [place] [address] MCH (RBC) [Entitic mass] 28.6 pg Normal 25.7-32.2 [facility] Comment on above: Performed By: #### M AG #### [address] [address] MCHC (RBC) [Mass/Vol] 32.5 % Normal 32.3-36.5 [facility] [place] Comment on above: Performed By: #### M AG #### [address] [address] MCV (RBC) [Entitic vol] 88.0 fL Normal 83.2-95.6 [facility] Comment on above: Performed By: #### M AG #### [address] [address] Monocytes/100 WBC (Bld) 9.1 % Normal [facility] Comment on above: Performed By: #### M AG #### [address] [address] Platelet mean volume (Bld) [Entitic vol] 9.5 fL Normal 8.7-12.0 [facility] Comment on above: Performed By: #### M AG #### [address] [address] Platelets (Bld) [#/Vol] 474 thou/cmm High 141-365 [facility] Comment on above: Performed By: #### M AG #### [address], [place] [address] RBC (Bld) [#/Vol] 3.67 mil/cmm Low 4.63-6.08 [facility] Comment on above: Performed By: #### M AG #### [facility] [address] [place], [place] [address] RDW SD 43.1 fl Normal 36.1-45.8 [facility] Comment on above: Performed By: #### M AG #### [facility] [address] [place], [place] [address] Seg Neutrophil 63.5 % Normal [facility] Comment on above: Performed By: #### M AG #### [facility] [address] [place], [place] [address] WBC (Bld) [#/Vol] 10.21 thou/cmm High 4.23-9.07 [facility] [place] Comment on above: Performed By: #### M AG #### [facility] [address] [place] [address] PROGRESSon 08-26-2019 PROGRESS HNO ID: [id number] Author: Sue Bianchi Service: Hospital Medicine Author Type: Physician Type: Progress Notes Filed: 08/26/2019 1:35 PM Note Text: DEPARTMENT OF HOSPITAL MEDICINE PROGRESS NOTE SERVICE DATE: 08/26/2019 SERVICE TIME: 1:34 PM Hospital Medicine/Primary Attending: Sue Bianchi, DO NIGHT AND WEEKEND COVERAGE: After 7pm, please call cross cover pager #[phone] Subjective INTERVAL HPI: Patient seen and examined. 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 2 to 12 grossly intact, [...] 08/21/191914 vte non-pharmacologic prophylaxis - none indicated ([place], [place]) 08/21/19[address] activity - mobilize patient ([place]) VTE Prophylaxis: VTE prophylaxis appropriate Disposition: Home with [facility] Plan of care discussed with: Provider, RN, Patient SIGNATURE: Sue Bianchi DO PATIENT NAME: Elizabeth Modi DATE: August 26, 2019 TIME:1:34 PM PAGER/CONTACT #: [phone] [facility] PROGRESS HNO ID: [id number] Author: Tom Prescott DO Service: General Surgery [...] questions or concerns Mon-Fri 6a-5p please page [phone]. After 5pm and on Weekends and Holidays, please page [phone] if in ICU or [phone] if on RNF. Subjective SUBJECTIVE: Patient seen [...] questions or concerns Mon-Fri 6a-5p please page [phone]. After 5pm and on Weekends and Holidays, please page [phone] if in ICU or [phone] if on RNF. Normal [facility] THERAPY NTon 08-26-2019 THERAPY NT HNO ID: [id number] Author: Maricarmen Babb/Vickie Good Service: Occupational Therapy Author Type: Occupational Therapist Type: Therapy (PT/OT/Speech/Resp) Filed: 08/26/2019 11:15 AM Note Text: Occupational Therapy Treatment SERVICE DATE: 08/26/2019 SERVICE TIME: 919 to 944 ROOM: [place] [address] Recommended Discharge Disposition: Acute Rehab Justification For [...] (ADL);General symptoms and signs-other Interventions Provided: Self Residential Management (49587);Therapeutic Exercise (69312) Therapeutic Exercise (73875) Treatment Minutes: 10 1 unit Skilled Intervention(s): [...] to patient shrugging shoulders during activity. Self Residential Management (09863) Treatment Minutes: 15 1 unit Skilled Intervention(s): [...] were noted Reason for Occupational Therapy Consult: RUG RENOVATOR Relevant Past Medical History: thyroid, HTN, DM, claudication Patient Report: Patient IDx2. Pt reported no pain and was agreeable to therapy. 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: time study observer Entry To Home: Stairs;With Rail Number Of [...] complete details for this therapy evaluation/treatment. SIGNATURE: WILLIE Blackwood PATIENT NAME: Elizabeth Modi DATE: August 26, 2019 TIME: 9:56 AM I reviewed and agree with the documentation corresponding to this therapy visit. SIGNATURE: NADIR Hopper/Serene DATE: August 26, 2019 TIME: 11:15 AM Evaluation and/or treatment directly supervised by licensed Occupational Therapist. [facility] CONSULT PROGon 08-25-2019 CONSULT PROG HNO ID: [id number] Author: Doris Eden Service: Endocrinology Author Type: Physician Type: Consult Progress Note Filed: 08/25/2019 9:29 AM Note Text: ENDOCRINOLOGY CONSULT PROGRESS NOTE SERVICE DATE: 08/25/2019 SERVICE TIME: 9:10 AM Subjective INTERVAL HPI: Pt followed for diabetes mellitus type 2 with complications. Tr from [place]; adm for right foot infection and gangrene; [...] August 25, 2019 TIME: 9:29 AM PAGER: [phone] [facility] PLAN OF CAREon 08-25-2019 PLAN OF CARE HNO ID: [id number] Author: Francine Roberts Service: General Surgery Author Type: Resident Type: Plan of Care Filed: 08/25/2019 8:12 AM Note Text: R guillotine amputation dressing changed with xeroform, gauze, Kerlix and jero wrap. Pt tolerated well with no pain. Stump with blood clots and vitalized tissue. No evidence of infection. Francine Roberts MD General Surgery, PGY-3 August 25, 2019 8:11 AM [facility] PROGRESSon 08-25-2019 PROGRESS HNO ID: [id number] Author: Sue Bianchi Service: Hospital Medicine Author Type: Physician Type: Progress Notes Filed: 08/25/2019 4:34 PM Note Text: DEPARTMENT OF HOSPITAL MEDICINE PROGRESS NOTE SERVICE DATE: 08/25/2019 SERVICE TIME: 1:10 PM Hospital Medicine/Primary Attending: Sue Bianchi, DO NIGHT AND WEEKEND COVERAGE: After 7pm, please call cross cover pager #[phone] Subjective INTERVAL HPI: Patient seen and examined. 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 2 to 12 grossly intact, no focal motor or sensory deficits noted, speech normal Psych- A ANDO x 3, mood normal Skin- R lower extremity dressing intact, wound care notes and images reviewed Lines, Drains, and Airways Line Peripheral 08/21/19 3200 Assessment Left Antecubital 20 Gauge 3 days [...] 08/21/191914 vte non-pharmacologic prophylaxis - none indicated (pr,oh) 08/21/191914 activity - mobilize patient (pr,mo) VTE Prophylaxis: VTE prophylaxis appropriate Disposition: Home with [facility] Plan of care discussed with: Provider, RN, Patient SIGNATURE: Sue Bianchi DO PATIENT NAME: Elizabeth Modi DATE: August 25, 2019 TIME:1:10 PM PAGER/CONTACT #: [phone] [facility] PROGRESS HNO ID: [id number] Author: Francine Roberts Service: General Surgery Author [...] kg/m? O2 Therapy: Room Air IANDO: Date 08/24/19 07 - 08/25/19 0659 08/25/19 07 - 08/26/19 0659 Shift 8695-9318 6463-0128 2046-7390 24 Hour Total 4306-0212 7501-4849 9656-1006 24 Hour Total INTAKE Shift Total OUTPUT [...] ICU or 2174 if on RNF. Normal [facility] Basic Panelon 08-24-2019 Creatinine [Mass/Vol] 0.76 mg/dL Normal 0.67-1.17 [facility] Comment on above: Result Comment: Use of this assay is not recommended for patients undergoing treatment with phenindione, due to the potential for falsely depressed results. Performed By: #### G LMET #### [address] [address] Anion gap [Moles/Vol] 10 mmol/L Normal 8-16 [facility] Comment on above: Performed By: #### G LMET #### [facility] [address] [place], [place] [address] CO2 [Moles/Vol] 20 mmol/L Low 21-32 [facility] Comment on above: Performed By: #### G LMET #### [facility] [address] [place], [place] [address] Glucose [Mass/Vol] 107 mg/dL High 70-99 [facility] Comment on above: Performed By: #### G LMET #### [facility] [address] [place], [place] [address] Urea nitrogen [Mass/Vol] 12 mg/dL Normal 7-18 [facility] Comment on above: Performed By: #### G LMET #### [facility] [address] [place], [place] [address] Calcium [Mass/Vol] 7.9 mg/dL Low 8.5-10.1 [facility] Comment on above: Performed By: #### G LMET #### [facility] [address] [place], [place] [address] Chloride [Moles/Vol] 105 mmol/L Normal 98-107 [facility] Comment on above: Performed By: #### G LMET #### [facility] [address] [place], [place] [address] Potassium [Moles/Vol] 4.4 mmol/L Normal 3.5-5.1 [facility] Comment on above: Performed By: #### G LMET #### [facility] [address] [place], [place] [address] Sodium [Moles/Vol] 131 mmol/L Low 136-145 [facility] Comment on above: Performed By: #### G LMET #### [facility] [address] [place], [place] [address] CONSULT PROGon 08-24-2019 CONSULT PROG HNO ID: [id number] Author: Hermila Gallegos Service: Endocrinology Author Type: [...] August 24, 2019 TIME: 3:12 PM PAGER: [phone] Normal [facility] CONSULT PROG HNO ID: [id number] Author: Martha Ryan (Pharmacist) Service: Pharmacy Author [...] pharmacy if questions. MARTHA RYAN, PHARMACIST Ext: [phone] [facility] Hemogram/Diffon 08-24-2019 Abs Immature Grans 0.19 thou/cmm High 0.00-0.05 [facility] Comment on above: Performed By: #### M AG #### [facility] [address] [place] [address] Abs Neut (ANC) 6.15 thou/cmm High 1.78-5.38 [facility] Comment on above: Performed By: #### M AG #### [facility] [address] [place], [place] [address] Abs. Baso 0.04 thou/cmm Normal 0.01-0.08 [facility] Comment on above: Result Comment: Smea r scanned; tech agrees with automated differential Performed By: #### M AG #### [facility] [address] [place], [place] [address] Abs. Davison 0.75 thou/cmm Normal 0.30-0.82 [facility] Comment on above: Performed By: #### M AG #### [facility] [address] [place], [place] [address] Basophils/100 WBC (Bld) 0.4 % Normal A [facility] Comment on above: Performed By: #### M AG #### [facility] [address] [place], [place] [address] Eosinophils (Bld) [#/Vol] 0.20 thou/cmm Normal 0.04-0. 54 [facility] Comment on above: Performed By: #### M AG #### [facility] [address] [place], [place] [address] Eosinophils/100 WBC (Bld) 2.2 % Normal [facility] Comment on above: Performed By: #### M AG #### [facility] [address] [place], [place] [address] Immature Grans 2.10 % Normal [facility] Comment on above: Performed By: #### M AG #### [facility] [address] [place], [place] [address] Lymphocytes (Bld) [#/Vol] 1.86 thou/cmm Normal 0.84-2. 85 [facility] Comment on above: Performed By: #### M AG #### [facility] [address] [place], [place] [address] Lymphocytes/100 WBC (Bld) 20.2 % Normal [facility] Comment on above: Performed By: #### M AG #### [facility] [address] [place], [place] [address] Monocytes/100 WBC (Bld) 8.2 % Normal [facility] Comment on above: Performed By: #### M AG #### [facility] [address] [place] [address] Seg Neutrophil 66.9 % Normal [facility] Comment on above: Performed By: #### M AG #### [facility] [address] [place] [address] Erythrocyte distribution width (RBC) [Ratio] 13.3 % Normal 11.6-14.4 [facility] Comment on above: Performed By: #### M AG #### [facility] [address] [place] [address] Hematocrit (Bld) [Volume fraction] 36.9 % Low 40.1-51.0 [facility] Comment on above: Performed By: #### M AG #### [facility] [address] [place] [address] Hemoglobin (Bld) [Mass/Vol] 11.7 g/dL Low 13.7-17.5 [facility] Comment on above: Performed By: #### M AG #### [facility] [address] [place] [address] MCH (RBC) [Entitic mass] 28.1 pg Normal 25.7-32.2 [facility] Comment on above: Performed By: #### M AG #### [facility] [address] [place] [address] MCHC (RBC) [Mass/Vol] 31.7 % Low 32.3-36.5 [facility] Comment on above: Performed By: #### M AG #### [facility] [address] [place] [address] MCV (RBC) [Entitic vol] 88.7 fL Normal 83.2-95.6 [facility] Comment on above: Performed By: #### M AG #### [facility] [address] [place] [address] Platelet mean volume (Bld) [Entitic vol] 9.5 fL Normal 8.7-12.0 [facility] Comment on above: Performed By: #### M AG #### [place] [address] Platelets (Bld) [#/Vol] 428 thou/cmm High 141-365 [facility] Comment on above: Performed By: #### M AG #### [facility] [address] [place], [place] [address] RBC (Bld) [#/Vol] 4.16 mil/cmm Low 4.63-6.08 [facility] Comment on above: Performed By: #### M AG #### [facility] [address] [place], [place] [address] RDW SD 43.4 fl Normal 36.1-45.8 [facility] Comment on above: Performed By: #### M AG #### [facility] [address] [place] [address] WBC (Bld) [#/Vol] 9.20 thou/cmm High 4.23-9.07 [facility] Comment on above: Performed By: #### M AG #### [facility] [address] [place] [address] Magnesium Bloodon 08-24-2019 Magnesium [Mass/Vol] 2.4 mg/dL Normal 1.6-2.6 [facility] Comment on above: Performed By: #### M AG #### [facility] [address] [place] [address] PROGRESSon 08-24-2019 PROGRESS HNO ID: [id number] Author: Sue Bianchi Service: Hospital Medicine Author Type: Physician Type: Progress Notes Filed: 08/24/2019 5:16 PM Note Text: DEPARTMENT OF HOSPITAL MEDICINE PROGRESS NOTE SERVICE DATE: 08/24/2019 SERVICE TIME: 12:40 PM Hospital Medicine/Primary Attending: Sue Bianchi, DO NIGHT AND WEEKEND COVERAGE: After 7pm, please call cross cover pager #[phone] Subjective INTERVAL HPI: Patient seen and examined. 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 2 to 12 grossly intact, [...] 08/21/191914 vte non-pharmacologic prophylaxis - none indicated (pr,oh) 08/21/191914 activity - mobilize patient (pr,mo) VTE Prophylaxis: VTE prophylaxis appropriate Disposition: Home with [facility] Plan of care discussed with: Provider, RN, Patient SIGNATURE: Sue Bianchi DO PATIENT NAME: Elizabeth Modi DATE: August 24, 2019 TIME:12:40 PM PAGER/CONTACT #: [phone] Normal [facility] PROGRESS HNO ID: [id number] Author: Edy Paredes Service: Infectious Disease Author Type: Physician Type: Progress Notes Filed: 08/24/2019 9:20 AM Note Text: Edy Paredes MD, MS, FACP, FIDSA Division of Infectious Diseses [address] [place] [address] Office: [phone] INFECTIOUS DISEASE CONSULT PROGRESS NOTE SERVICE DATE: [...] 24, 2019 TIME: 9:16 AM PAGER/CONTACT #: [phone] [facility] PROGRESS HNO ID: [id number] Author: Francine Roberts Service: Vascular Surgery Author [...] questions or concerns Mon-Fri 6a-5p please page [phone]. After 5pm and on Weekends and Holidays, please page [phone] if in ICU or [phone] if on RNF. Subjective SUBJECTIVE: Denies leg [...] IANDO: Date 08/23/19699 - 08/24/19 0659 08/24/19 07 - 08/25/19 0659 Shift 0022-4424 2167-3349 9926-4864 24 Hour Total 1118-1800 0454-1045 1677-0985 24 Hour Total INTAKE IV 625 625 OR Crystalloid intake (mL) 250 250 Volume (mL) (lactated ringers infusion) 125 125 Volume (mL) (vancomycin iv piggyback 1.25 g in D5W 250 mL (VANCOCIN)) 250 250 Shift Total 625 625 OUTPUT Urine 674 454 6223 Void (ml) 141 861 9131 Blood 50 50 Estimated Blood loss 50 50 Shift Total 669 193 8710 Weight (kg) 85 85 85 85 85 [...] 3 g in NaCl 0.9% 100 mL MB+/ADD-Flowood (UNASYN) 3 g INTRAVENOUS q 6 H [...] ICU or 2174 if on RNF. Normal [facility] Phosphorus Bloodon 0 Phosphate [Mass/Vol] 2.3 mg/dL Low 2.5-4.9 [facility] Comment on above: Performed By: #### G LMET #### [facility] [address] [place] [address] THERAPY NTon 08-24-2019 THERAPY NT HNO ID: [id number] Author: Lizeth (Pt) Papito Service: Physical Therapy Author Type: Physical Therapist Type: Therapy (PT/OT/Speech/Resp) Filed: 08/24/2019 2:49 PM Note Text: Physical Therapy Evaluation SERVICE DATE: 08/24/2019 SERVICE TIME: 1325 to 1346 ROOM: [place] [address] Recommended Discharge Disposition: Acute Rehab Recommended Discharge [...] Weakness (generalized) Interventions Provided: Evaluation $ Evaluation-Low (53363) Billed Units: 1 unit History and examination of body systems see assessment section above. This patient?s clinical presentation is fair. The patient required a low complexity evaluation. Pt was educated on the role of PT within the acute care environment, discussed discharge recommendations. 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 Plan [...] Lives With: Self/Alone Assistance Available: time study observer Entry To Home: Stairs;With Rail Number Of [...] August 24, 2019 TIME: 2:43 PM Normal [facility] THERAPY NT HNO ID: [id number] Author: Susan Ochoar/Vickie Miner Service: Occupational Therapy Author Type: Occupational Therapist Type: Therapy (PT/OT/Speech/Resp) Filed: 08/24/2019 1:07 PM Note Text: Occupational Therapy Evaluation SERVICE DATE: 08/24/2019 SERVICE TIME: 1133 to 1208 ROOM: [id number] Recommended Discharge Disposition: Acute Rehab Justification For [...] (ADL);General symptoms and signs-other Interventions Provided: Evaluation;Self Residential Management (43968) $ Evaluation-Moderate (13337) Billed Units: 1 unit OT Evaluation Moderate [...] occupational performance: thyroid, HTN, DM, claudication Self Residential Management (38656) Treatment Minutes: 10 1 unit Skilled Intervention(s): [...] lower extremity. 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 Patient agreeable to therapy. I have no pain at all." Denies pain before/after transfers. 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: time study observer(dtr) Entry To Home: Stairs;With Rail(bilat rails) Number [...] DATE: August 24, 2019 TIME: 1:01 PM Normal [facility] ANES [place] 08-23-2019 ANES POST HNO ID: [id number] Author: Sj Huizar Service: Anesthesiology Author Type: [...] 2019 TIME: 11:24 AM PAGER/CONTACT #: [phone] [facility] ANES PREOPon 08-23-2019 ANES PREOP HNO ID: [id number] Author: Sj Huizar Service: Anesthesiology Author Type: [...] Units SUBCUTANEOUS q 12 H [facility] 5,000 Units at 08/22/19 0807 - [MAR Hold due to Transfer] aluminum-magnesium hydroxide-simethicone 200-200-20 mg/5 mL 30 mL (MAALOX,MYLANTA,MAG-AL PLUS) 30 mL ORAL DAILY PRN Mohammad [facility]regation - [MAR Hold due to Transfer] ondansetron 4 mg tab(s) (ZOFRAN) 4 mg ORAL q 6 H PRN [facility] Or - [MAR Hold due to Transfer] ondansetron (PF) 4 mg injection (ZOFRAN) 4 mg INTRAVENOUS q 6 H PRN [facility] - [MAR Hold due to Transfer] polyethylene glycol 3350 17 g packet (MIRALAX, GLYCOLAX) 17 g ORAL DAILY PRN [facility] - [MAR Hold due to Transfer] docusate sodium 100 mg cap(s) (COLACE) 100 mg ORAL BID PRN [facility] - [MAR Hold due to Transfer] magnesium hydroxide 400 mg/5 mL 30 mL (MOM) 30 mL ORAL DAILY PRN [facility] - [MAR Hold due to Transfer] bisacodyl 10 mg suppository (DULCOLAX) 10 mg RECTAL DAILY PRN [facility] - [MAR Hold due to Transfer] acetaminophen 650 mg tab(s) (TYLENOL) 650 mg ORAL q 6 H PRN [facility] - [MAR Hold due to Transfer] atorvastatin 40 mg tab(s) (LIPITOR) 40 mg ORAL DAILY [facility] 40 mg at 08/22/192009 - [MAR Hold due to Transfer] lisinopril 10 mg tab(s) (ZESTRIL, PRINIVIL) 10 mg ORAL DAILY [facility] 10 mg at 08/22/19 0807 - [MAR Hold due to Transfer] levothyroxine 25 mcg tab(s) (SYNTHROID) 25 mcg ORAL DAILY [facility] 25 mcg at 08/22/19 0600 - [MAR Hold due to Transfer] insulin lispro pen (rapid acting) (HumaLOG KWIKPEN) SUBCUTANEOUS w MEALS AND HS Mohammad [facility] 1 Units at 08/22/192128 - [MAR Hold due to Transfer] dextrose 40 % 15 g 15 g ORAL PRN [facility] Or - [MAR Hold due to Transfer] glucagon 1 mg injection (GLUCAGEN) 1 mg INTRAMUSCULAR PRN [facility] Or - [MAR Hold due to Transfer] dextrose 50% in water 25 mL syringe 12.5 g INTRAVENOUS PRN [facility] - [MAR Hold due to Transfer] vancomycin iv piggyback 1.25 g in D5W 250 mL (VANCOCIN) 1.25 g INTRAVENOUS q 12 HR Mohammad [facility] 250 mL/hr at 08/22/192009 1.25 g at 08/22/192009 - [MAR Hold due to Transfer] vancomycin dosing and monitoring per pharmacy OTHER As Directed [facility] - [MAR Hold due to Transfer] piperacillin-tazobacta m iv piggyback 3.375 g in dextrose (iso-osmotic) 50 mL (ZOSYN) 3.375 g INTRAVENOUS q 6 H [facility] 100 mL/hr at 08/23/19 0549 3.375 g at 08/23/19 0549 - [MAR Hold due to Transfer] clindamycin iv piggyback 600 mg in D5W 50 mL (CLEOCIN) 600 mg INTRAVENOUS q 6 H [facility] 100 mL/hr at 08/23/19 0549 600 mg [...] August 23, 2019 TIME: 8:32 AM CSN: [id number] Normal [facility] BRIEF OP NOTon 08-23-2019 BRIEF OP NOT HNO ID: [id number] Author: Jennifer Crooks Service: General Surgery Author Type: Resident Type: Brief Op Note Filed: 08/23/2019 9:35 AM Note Text: Attestation signed by Gordo Huang Henry at 08/23/2019 10:01 AM I was present for the entire procedure and performed the procedure with the assistance of the resident and the surgical attendant BRIEF OP / PROCEDURE NOTE LOG ID: [id number] Surgery/Procedure Date: 08/23/2019 Incision/Procedure Start Time: 8:42 AM Incision Close/Procedure End Time: 9:04 AM Surgeon(s)/Procedurali st(s) and Student Driving Instructor(s): Surgeon(s) and Role: * Gordo Figueroa - [...] 2019 TIME: 9:29 AM PAGER/CONTACT #: Normal [facility] Basic Panelon 08-23-2019 Creatinine [Mass/Vol] 0.88 mg/dL Normal 0.67-1.17 [facility] Comment on above: Result Comment: Use of this assay is not recommended for patients undergoing treatment with phenindione, due to the potential for falsely depressed results. Performed By: #### P 8 #### [place] [address] Glucose [Mass/Vol] 96 mg/dL Normal 70-99 [facility] Comment on above: Performed By: #### P 8 #### [facility] [address] [place], [place] [address] Anion gap [Moles/Vol] 12 mmol/L Normal 8-16 [facility] Comment on above: Performed By: #### P 8 #### [facility] [address] [place], [place] [address] Calcium [Mass/Vol] 7.2 mg/dL Low 8.5-10.1 [facility] Comment on above: Performed By: #### P 8 #### [facility] [address] [place], [place] [address] CO2 [Moles/Vol] 22 mmol/L Normal 21-32 [facility] Comment on above: Performed By: #### P 8 #### [facility] [address] [place], [place] [address] Urea nitrogen [Mass/Vol] 15 mg/dL Normal 7-18 [facility] Comment on above: Performed By: #### P 8 #### [facility] [address] [place], [place] [address] Chloride [Moles/Vol] 103 mmol/L Normal 98-107 [facility] Comment on above: Performed By: #### P 8 #### [facility] [address] [place], [place] [address] Potassium [Moles/Vol] 3.8 mmol/L Normal 3.5-5.1 [facility] Comment on above: Performed By: #### P 8 #### [address] [address] Sodium [Moles/Vol] 133 mmol/L Low 136-145 [facility] Comment on above: Performed By: #### P 8 #### [facility] [address] [place], [place] [address] CASE MGT INIT ASSESon 2019 CASE MGT INIT ASSES HNO ID: [id number] Author: Tami SantiagoRn) KAVIN Patricio Service: Care Management Author Type: Registered Nurse Type: Care Mgt Initial Assessment Filed: 08/23/2019 3:20 PM Note Text: CARE MANAGEMENT: ASSESSMENT AND DISCHARGE PLAN SERVICE DATE: August 23, 2019 SERVICE TIME: 3:18 PM PRIMARY CARE PHYSICIAN: No primary care provider on file. 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 Last discharge within 30 days: No Advance Directive: Current Advance Directive: None Corporate Executive Chef Attempted to Assist with AD Completion: Yes [...] Mostly I feel financially burdened by my cnb-nr-nflwon expenses for my prescription medication:: 0 - Agree Somewhat Risk Score: 0 Patient is categorized as: Low risk < 2 Are you interested in bedside delivery of your medications? No Is Patient Psychosocially Complex?: No ASSESSMENT AND PLAN: Medical Needs: Medical Needs: None Psychosocial Needs: Psychosocial Needs: None FREEDOM OF CHOICE EXPLAINED: [place] of Choice Given: Yes Level of Care Discussed: Inpatient Rehab Facility Financial Disclosure Provided: Yes Financial Disclosure Comments: ESR Provider List: (Pt refused list- would like [facility]. ) POTENTIAL TRANSITION PLANS Rehab Facility Spoke with pt at the bedside. 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 Pt states that he has a PCP in [place]. Pt is s/p right foot amp. Anticipate AR needs at d/c. Await PT/OT evals. Pt would like [facility] rehab- referral sent. Pt will need auth and likely transport at d/c. Will follow. SIGNATURE: Tami Patricio RN PATIENT NAME: Elizabeth Modi DATE: August 23, 2019 TIME: 3:18 PM PAGER/CONTACT #: [phone] [facility] CONSULTon 08-23-2019 CONSULT HNO ID: [id number] Author: Doris Eden Service: Endocrinology Author Type: Physician Type: Consults Filed: 08/23/2019 1:21 PM Note Text: I have reviewed the patient's medical record in detail. Consult note dictated. See orders for Lantus/oral agents. Can use OTC Novolin N at home. Doris Eden MD. [facility] CONSULT HNO ID: [id number] Author: Doris Eden Service: Endocrinology Author Type: Physician Type: Consults Filed: 08/25/2019 9:16 AM Note Text: [facility] - Consultation PATIENT NAME: ELIZABETH MODI CSN: [id number] DATE OF : 1940 SEX/AGE: M/79 PATIENT TYPE: I HOSP SVC: [facility] LOCATION: [id number] DATE OF SERVICE: 08/23/2019 TIME OF SERVICE: 01:15 PM REFERRING PHYSICIAN: Dexter Chávez MD REASON FOR CONSULTATION: Uncontrolled diabetes. HISTORY OF PRESENT ILLNESS: The patient is a 79-year-old male, who was transferred from [facility] with gangrene off [...] Lantus 10. Doris Eden MD Endocrinology SM:shima /[id number] [facility] CONSULT PROGon 08-23-2019 CONSULT PROG HNO ID: [id number] Author: Isac Navarro (Pharmacist) Service: Pharmacy Author Type: Pharmacist Type: Consult Progress Note Filed: 08/23/2019 7:37 PM Note Text: PHARMACY VANCOMYCIN DOSING NOTE Patient Name: Elizabeth Modi Admission Date: 08/21/2019 Date of Consult: 08/23/2019 Time of Consult: 7:31 PM Indication: Skin/Soft tissue infection Goal Range: 10-20 mcg/mL RECOMMENDATIONS/PLAN: Pharmacy consulted for vancomycin dosing for Eilzabeth Modi, a 79 year old, male who [...] have any questions[place] [phone]. Age: [age] year old Allergies: ALLERGIES No [...] 08/23/2019 1830 22.0 ISAC NAVARRO, PHARMACIST Normal [facility] CONSULT PROG HNO ID: [id number] Author: Paulo Landis Service: Infectious Disease Author [...] labs Paulo Landis MD Infectious Disease Respiratory [place] Pager: [phone] August 23, 2019 Normal [facility] Hemogram/Diffon 08-23-2019 Abs Immature Grans 0.19 thou/cmm High 0.00-0.05 [facility] Comment on above: Performed By: #### M AG #### [facility] [address] [place] [address] Abs Neut (ANC) 15.52 thou/cmm High 1.78-5.38 [facility] Comment on above: Performed By: #### M AG #### [facility] [address] [place], [place] [address] Abs. Baso 0.04 thou/cmm Normal 0.01-0.08 [facility] Comment on above: Result Comment: Smea r scanned; tech agrees with automated differential Performed By: #### M AG #### [facility] [address] [place] [address] Abs. Davison 1.45 thou/cmm High 0.30-0.82 [facility] Comment on above: Performed By: #### M AG #### [address] [address] Basophils/100 WBC (Bld) 0.2 % Normal [facility] Comment on above: Performed By: #### M AG #### [address] [address] Eosinophils (Bld) [#/Vol] 0.21 thou/cmm Normal 0.04-0. 54 [facility] Comment on above: Performed By: #### M AG #### [address] [address] Eosinophils/100 WBC (Bld) 1.1 % Normal [facility] Comment on above: Performed By: #### M AG #### [address] [address] Immature Grans 1.00 % Normal [facility] Comment on above: Performed By: #### M AG #### [facility] [address] [place], [place] [address] Lymphocytes (Bld) [#/Vol] 1.39 thou/cmm Normal 0.84-2. 85 [facility] Comment on above: Performed By: #### M AG #### [facility] [address] [place], [place] [address] Lymphocytes/100 WBC (Bld) 7.4 % Normal [facility] Comment on above: Performed By: #### M AG #### [address] [address] Monocytes/100 WBC (Bld) 7.7 % Normal A [facility] Comment on above: Performed By: #### M AG #### [facility] [address] [place] [address] Seg Neutrophil 82.6 % Normal [facility] Comment on above: Performed By: #### M AG #### [facility] [address] [place] [address] Erythrocyte distribution width (RBC) [Ratio] 13.2 % Normal 11.6-14.4 [facility] Comment on above: Performed By: #### M AG #### [facility] [address] [place] [address] Hematocrit (Bld) [Volume fraction] 31.0 % Low 40.1-51.0 [facility] Comment on above: Performed By: #### M AG #### [place] [address] Hemoglobin (Bld) [Mass/Vol] 10.2 g/dL Low 13.7-17.5 [facility] Comment on above: Performed By: #### M AG #### [place] [address] MCH (RBC) [Entitic mass] 28.7 pg Normal 25.7-32.2 [facility] Comment on above: Performed By: #### M AG #### [place] [address] MCHC (RBC) [Mass/Vol] 32.9 % Normal 32.3-36.5 [facility] Comment on above: Performed By: #### M AG #### [place] [address] MCV (RBC) [Entitic vol] 87.1 fL Normal 83.2-95.6 A [facility] Comment on above: Performed By: #### M AG #### [place] [address] Platelet mean volume (Bld) [Entitic vol] 9.6 fL Normal 8.7-12.0 [facility] Comment on above: Performed By: #### M AG #### [address] [place], [place] [address] Platelets (Bld) [#/Vol] 421 thou/cmm High 141-365 [facility] Comment on above: Performed By: #### M AG #### [facility] [address] [place], [place] [address] RBC (Bld) [#/Vol] 3.56 mil/cmm Low 4.63-6.08 [facility] Comment on above: Performed By: #### M AG #### [facility] [address] [place] [address] RDW SD 42.0 fl Normal 36.1-45.8 [facility] Comment on above: Performed By: #### M AG #### [facility] [address] [place] [address] WBC (Bld) [#/Vol] 18.79 thou/cmm High 4.23-9.07 [facility] Comment on above: Performed By: #### M AG #### [place] [address] Hgb A1con 08-23-2019 HbA1c (Bld) [Mass fraction] 9.8 % High 4.2-6.3 [facility] Comment on above: Result Comment: Meth od is National Glycohemoglobin Standardization Program (NGSP) compliant. Performed By: #### M AG #### [place] [address] HbA1c (Bld) [Mass fraction] 235 mg/dl Normal [facility] Comment on above: Performed By: #### M AG #### [place] [address] MRSA Screenon 08-23-2019 MRSA DNA ARIELLE+probe Ql (Unsp spec) Test performed at [facility] No MRSA detected. Normal [facility] Comment on above: Performed By: #### F ERR #### [facility] [address] [place] [address] Magnesium Bloodon 08-23-2019 Magnesium [Mass/Vol] 0.9 mg/dL Critically low 1.6-2.6 [facility] Comment on above: Performed By: #### M AG #### [facility] [address] [place] [address] NURSING PROGon 08-23-2019 NURSING PROG HNO ID: [id number] Author: Karl SantiagoRn) KAVIN Russell Service: Nursing Author Type: Registered Nurse Type: Nursing Progress Note Filed: 08/23/2019 9:27 AM Note Text: Fall risk protocol initiated. Fall risk wrist band applied and yellow sock applied to left foot. SR up x2. Call light in reach. Urinal offered. Normal [facility] NURSING PROG HNO ID: [id number] Author: Marita SantiagoRn) KAVIN Aponte Service: Nursing Author Type: Registered Nurse Type: Nursing Progress Note Filed: 08/23/2019 8:09 AM Note Text: Tech here to take pt to presurgery unit . Pt showing no signs of distress voicing no complaints. Pt taken via cart to presurgery unit Normal [facility] NURSING PROG HNO ID: [id number] Author: Marita SantiagoRn) KAVIN Aponte Service: Nursing [...] she gets here. Daughter states ubderstanding Normal [facility] NURSING PROG HNO ID: [id number] Author: Marita SantiagoRn) KAVIN Aponte Service: Nursing Author Type: Registered Nurse Type: Nursing Progress Note Filed: 08/23/2019 8:11 AM Note Text: Dr. Figueroa into see pt. Dr. Figueroa informing pt that surgery has been moved up to this morning. Pt states understanding. Normal [facility] OPERATIVE NOon 08-23-2019 OPERATIVE NO HNO ID: [id number] Author: Gordo Figueroa Service: Vascular Surgery Author Type: Physician Type: Operative Report Filed: 08/23/2019 1:07 PM Note Text: [facility] - Operative Report ELIZABETH MODI : 1940 AGE: 79. SEX: M PATIENT TYPE: I HOSP SVC: [facility] LOCATION: [id number] ATTENDING PHYSICIAN: Ara Singer M.D. [facility] NUMBER: [id number] DATE OF SURGERY/PROCEDURE: 08/23/2019 INCISION/PROCEDURE START TIME: 8:42 AM INCISION CLOSE/PROCEDURE END TIME: 9:04 AM PREOPERATIVE DIAGNOSIS: Gangrenous changes of the right foot with gas in the subcutaneous tissues. POSTOPERATIVE DIAGNOSIS: Gangrenous changes of the right foot with gas in the subcutaneous tissues. SURGEON: Gordo Figueroa MD VERTICAL MILL OPERATOR: 1. Jennifer Crooks M.D. 2. Irvin Walker, surgical attendant. SURGERY/PROCEDURE: Guillotine right above ankle/below-knee amputation. ANESTHESIA: [...] area in stable condition. Gordo Figueroa MD DJW:[id number] /[id number] Normal [facility] PROGRESSon 08-23-2019 PROGRESS HNO ID: [id number] Author: Sue Bianchi Service: Hospital Medicine Author Type: Physician Type: Progress Notes Filed: 08/23/2019 3:48 PM Note Text: DEPARTMENT OF HOSPITAL MEDICINE PROGRESS NOTE SERVICE DATE: 08/23/2019 SERVICE TIME: 12:20 PM Hospital Medicine/Primary Attending: Sue Bianchi, DO NIGHT AND WEEKEND COVERAGE: After 7pm, please call cross cover pager #[phone] Subjective INTERVAL HPI: Patient seen and examined. 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 2 to 12 grossly intact, [...] 08/21/191914 vte non-pharmacologic prophylaxis - none indicated (pr,mo) 08/21/191914 activity - mobilize patient ([place]) VTE Prophylaxis: VTE prophylaxis appropriate Disposition: Home with [facility] Plan of care discussed with: Provider, RN, Patient SIGNATURE: Sue Bianchi DO PATIENT NAME: Elizabeth Modi DATE: August 23, 2019 TIME:12:20 PM PAGER/CONTACT #: [phone] [facility] PROGRESS HNO ID: [id number] Author: Tom Prescott DO Service: General Surgery [...] questions or concerns Mon-Fri 6a-5p please page [phone]. After 5pm and on Weekends and Holidays, [...] Room Air IANDO: Date 08/22/19699 - 08/23/19 0608/23/19 07 - 08/24/19 0659 Shift 8917-0977 1635-4194 2824-0186 24 Hour Total 6903-8647 6064-9926 0334-4127 24 Hour Total INTAKE PO 240 240 PO 240 240 Shift Total 240 240 OUTPUT Urine [phone] 5754 Void (ml) 500 079 718 7948 Shift Total 500 772 516 8129 Weight (kg) 85 85 85 85 85 [...] and plan discussed with attending: Dr. Figueroa, diamond saw operator for Dr. Parmar SIGNATURE: Tom Prescott DO PATIENT NAME: Elizabeth Modi DATE: August 23, 2019 TIME: 8:02 AM Vascular AND Thoracic Surgery Service Pager: For questions or concerns Mon-Fri 6a-5p please page [phone]. After 5pm and on Weekends and Holidays, please page [phone] if in ICU or [phone] if on RNF. Normal [facility] PROGRESS HNO ID: [id number] Author: Cayetano Zapata MD Service: Orthopaedic Surgery [...] 08/23/19 TIME: 6:27 AM PAGER/CONTACT #: [phone] Normal [facility] PROGRESS HNO ID: [id number] Author: Tom Prescott DO Service: General Surgery [...] ICU or 2174 if on RNF. Normal [facility] Phosphorus Bloodon 0 Phosphate [Mass/Vol] 2.1 mg/dL Low 2.5-4.9 [facility] Comment on above: Performed By: #### M AG #### [place] [address] Vancomycin,Randomon 08-23-19 20 INR Coag (Bld) [Relative time] 22.0 mg/L Normal [facility] Comment on above: Result Comment: Trou gh 10.0-20.0 mg/L Peak 18.0-40.0 mg/L Performed By: #### C _ANA #### [place] [address] CONSULTon 08-22-2019 CONSULT HNO ID: [id number] Author: Paulo Landis Service: Infectious Disease Author [...] no longer doing that Employment: work with [employer] CURRENT ANTIBIOTICS: Zosyn Clindamycin vancomycin Current other [...] 2019 TIME: 1:42 PM PAGER/CONTACT #: [phone] [facility] CONSULT HNO ID: [id number] Author: Yadi Badillo Service: Orthopaedic Surgery Author Type: Physician Type: Consults Filed: 08/22/2019 6:41 PM Note Text: ORTHOPAEDIC SURGERY CONSULT Pt: ELIZABETH MODI Date of Consultation: 08/22/2019 Physician Consulted: Dr. Badillo Reason for Consultation: Necrotic foot HPI: 79 year old male presented to [facility] on 08/21/2019 with complaints of changes [...] August 22, 2019 Time: 6:32 PM Normal [facility] CONSULT HNO ID: [id number] Author: Ana Luisa Crooks Service: General Surgery [...] questions or concerns Mon-Fri 6a-5p please page [phone]. After 5pm and on Weekends and Holidays, please page [phone] if in ICU or [phone] if on RNF. Service date: 08/22/2019 Service time: 4:01 AM Reason for consult: foot wounds Nature of consult: routine Subjective HPI Mr. Modi is a 79 year old male with necrotic L foot. Patient reports that he has only noticed this over the last week. Initially presented to [place] for this reason and was transferred to [facility] for care. Denies pain and states [...] SIGNATURE: Ana Luisa Crooks MD PATIENT NAME: Eliazbeth Modi DATE: August 22, 2019 TIME: 4:01 AM PAGER: see below Vascular AND Thoracic Surgery Service Pager: For questions or concerns Mon-Fri 6a-5p please page [phone]. After 5pm and on Weekends and Holidays, please page [phone] if in ICU or [phone] if on RNF. Normal [facility] CONSULT PROGon 08-22-2019 CONSULT PROG HNO ID: [id number] Author: Adali Murry Service: Wound Care Team Author Type: Nurse Specialist Type: Consult Progress Note Filed: 08/22/2019 11:19 AM Note Text: WOUND CARE CONSULT HAND TIER NOTE SERVICE DATE: 08/22/2019 SERVICE TIME: 0910 TIME SPENT (minutes): 30 REASON FOR CONSULT: Eval R foot necrosis/wound CHIEF COMPLAINT: c/o necrotic toes and tissue to R foot. Subjective HISTORY OF PRESENT ILLNESS: Mr. Modi is a 79 year old male who is seen today with Yolanda Jackman Wound/tennis net maker, and presented to hospital with complaints of [...] found under the Get Images tab on [employer]. Photos are uploaded by the wound rn transitional care and may not be immediately available for viewing. Contact the wound and ostomy care department with questions. SIGNATURE: Adali Murry APRN.CNS PATIENT NAME: Elizabeth Modi DATE: August 22, 2019 TIME: 11:03 AM CONTACT#: [id number] [facility] CONSULT PROG HNO ID: [id number] Author: Jose Walton (Pharmacist) Service: Pharmacy Author [...] have any questions, please contact Pharmacy at [phone]. Age: [age] year old Allergies: ALLERGIES No [...] results found for: PEGGY Walton, Pharmacist Pager: [phone] Normal [facility] Comprehensive Panelon 2019 ALP [Catalytic activity/Vol] 107 U/L Normal 45-117 [facility] Comment on above: Performed By: #### C _ANA #### [facility] [address] [place], [place] [address] Bilirubin [Mass/Vol] 0.5 mg/dL Normal 0.2-1.0 [facility] Comment on above: Result Comment: Use of this assay is not recommended for patients undergoing treatment with eltrombopag due to the potential for falsely elevated results. Performed By: #### C _ANA #### [facility] [address] [place], [place] [address] Protein [Mass/Vol] 6.4 g/dL Normal 6.4-8.2 [facility] Comment on above: Performed By: #### C _ANA #### [facility] [address] [place], [place] [address] ALT [Catalytic activity/Vol] 73 U/L Normal 12-78 [facility] Comment on above: Performed By: #### C _ANA #### [facility] [address] [place], [place] [address] AST [Catalytic activity/Vol] 81 U/L High 15-37 [facility] Comment on above: Performed By: #### C _ANA #### [facility] [address] [place], [place] [address] Creatinine [Mass/Vol] 0.95 mg/dL Normal 0.67-1.17 [facility] Comment on above: Result Comment: Use of this assay is not recommended for patients undergoing treatment with phenindione, due to the potential for falsely depressed results. Performed By: #### C _ANA #### [facility] [address] [place], [place] [address] Albumin [Mass/Vol] 1.7 g/dL Low 3.4-5.0 [facility] Comment on above: Performed By: #### C _ANA #### [facility] [address] [place], [place] [address] Anion gap [Moles/Vol] 12 mmol/L Normal 8-16 [facility] Comment on above: Performed By: #### C _ANA #### [facility] [address] [place], [place] [address] Calcium [Mass/Vol] 7.1 mg/dL Low 8.5-10.1 [facility] Comment on above: Performed By: #### C _ANA #### [facility] [address] [place], [place] [address] CO2 [Moles/Vol] 21 mmol/L Normal 21-32 [facility] Comment on above: Performed By: #### C _ANA #### [facility] [address] [place], [place] [address] Glucose [Mass/Vol] 218 mg/dL High 70-99 [facility] Comment on above: Performed By: #### C _ANA #### [facility] [address] [place], [place] [address] Urea nitrogen [Mass/Vol] 31 mg/dL High 7-18 [facility] Comment on above: Performed By: #### C _ANA #### [facility] [address] [place], [place] [address] Chloride [Moles/Vol] 104 mmol/L Normal 98-107 [facility] Comment on above: Performed By: #### C _ANA #### [facility] [address] [place], [place] [address] Potassium [Moles/Vol] 4.1 mmol/L Normal 3.5-5.1 [facility] Comment on above: Performed By: #### C _ANA #### [facility] [address] [place], [place] [address] Sodium [Moles/Vol] 133 mmol/L Low 136-145 [facility] Comment on above: Performed By: #### C _ANA #### [facility] [address] [place] [address] Cult and Smr CAROLINE and AERon 0 08-22-2019 Cult and Smr CRAOLINE and AER Test performed at [facility] Rare Mixed skin javier. Moderate Mixed anaerobic javier. No Bacteroides fragilis group isolated. No Clostridium perfringens isolated. Many Gram positive cocci No WBC seen Rare Squamous epithelial cells Normal [facility] Comment on above: Performed By: #### C _ANA #### [facility] [address] [place] [address] Ferritinon 08-22-2019 Ferritin [Mass/Vol] 1342.20 ng/mL High 26.00-3 88.0 0 [facility] Comment on above: Performed By: #### F ERR #### [facility] [address] [place] [address] Folateon 08-22-2019 Folate 3.80 ng/mL Normal 3.10-17.50 [facility] Comment on above: Performed By: #### P 8 #### [facility] [address] [place] [address] Hemogramon 08-22-2019 Erythrocyte distribution width (RBC) [Ratio] 13.2 % Normal 11.6-14.4 [facility] Comment on above: Performed By: #### F ERR #### [facility] [address] [place] [address] Hematocrit (Bld) [Volume fraction] 28.4 % Low 40.1-51.0 [facility] Comment on above: Performed By: #### F ERR #### [facility] [address] [place] [address] Hemoglobin (Bld) [Mass/Vol] 9.4 g/dL Low 13.7-17.5 [facility] Comment on above: Performed By: #### F ERR #### [facility] [address] [place] [address] MCH (RBC) [Entitic mass] 28.7 pg Normal 25.7-32.2 [facility] Comment on above: Performed By: #### F ERR #### [facility] [address] [place] [address] MCHC (RBC) [Mass/Vol] 33.1 % Normal 32.3-36.5 [facility] Comment on above: Performed By: #### F ERR #### [facility] [address] [place] [address] MCV (RBC) [Entitic vol] 86.9 fL Normal 83.2-95.6 [facility] Comment on above: Performed By: #### F ERR #### [facility] [address] [place] [address] Platelet mean volume (Bld) [Entitic vol] 9.7 fL Normal 8.7-12.0 [facility] Comment on above: Performed By: #### F ERR #### [facility] [address] [place] [address] Platelets (Bld) [#/Vol] 380 thou/cmm High 141-365 [facility] Comment on above: Performed By: #### F ERR #### [facility] [address] [place] [address] RBC (Bld) [#/Vol] 3.27 mil/cmm Low 4.63-6.08 [facility] Comment on above: Performed By: #### F ERR #### [facility] [address] [place] [address] RDW SD 41.6 fl Normal 36.1-45.8 [facility] Comment on above: Performed By: #### F ERR #### [facility] [address] [place] [address] WBC (Bld) [#/Vol] 19.76 thou/cmm High 4.23-9.07 [facility] Comment on above: Performed By: #### F ERR #### [facility] [address] [place] [address] Iron % Saturationon 08-22-19 20 Iron % Saturation 15 % Low 20-55 [facility] Comment on above: Performed By: #### M AG #### [facility] [address] [place] [address] Iron Binding Cap. 150 ug/dL Low 250-450 [facility] Comment on above: Performed By: #### M AG #### [facility] [address] [place], [place] [address] Iron Serum 23 ug/dL Low 65-175 [facility] Comment on above: Performed By: #### M AG #### [facility] [address] [place], [place] [address] MRI FOOT/TOES WO IVCON RTon 08-22-2019 MRI FOOT/TOES WO IVCON RT * * *Final Rep ort* * * DATE OF EXAM: Aug 22 2019 12:23PM [facility] 0195 - MRI FOOT/TOES WO IVCON RT [...] be reactive or related to early osteomyelitis. Pharmacy Informaticist: ONEL Transcribe Date/Time: Aug 22 2019 12:47P Dictated by : PRISCILA RUELAS MD This examination was interpreted and the report reviewed and electronically signed by: PRISCILA RUELAS MD on Aug 22 2019 1:06PM EST Normal [facility] NURSING PROGon 08-22-2019 NURSING PROG HNO ID: [id number] Author: Marita SantiagoRn) KAVIN Aponte Service: Nursing Author Type: Registered Nurse Type: Nursing Progress Note Filed: 08/22/2019 2:17 PM Note Text: Dr. Parmar into see pt. Pt to be scheduled for angiogram tomorrow. Pt states understanding of procedure Normal [facility] NUTRITIONon 08-22-2019 NUTRITION HNO ID: [id number] Author: Marisol Falcon RD Service: Nutrition Therapy Author Type: Registered [...] of fat/muscle stores;Patient/family self-report Estimated kilocalorie needs: 3035-7709 Calorie Calculation Method: 30-35 kcals/kg Estimated protein [...] Inflammation: Hyperglycemia;Hypoalbu minemia;Imaging studies SIGNATURE: Kacie Marquez Technical Specialist Cytology PATIENT NAME: Elizabeth Modi DATE: August 22, 2019 TIME: 2:27 PM PAGER: [phone] Normal [facility] PROGRESSon 08-22-2019 PROGRESS HNO ID: [id number] Author: Sue Bianchi Service: Hospital Medicine Author Type: Physician Type: Progress Notes Filed: 08/22/2019 3:29 PM Note Text: DEPARTMENT OF HOSPITAL MEDICINE PROGRESS NOTE SERVICE DATE: 08/22/2019 SERVICE TIME: 2:32 PM Hospital Medicine/Primary Attending: Sue Bianchi, DO NIGHT AND WEEKEND COVERAGE: After 7pm, please call cross cover pager #[phone] Subjective INTERVAL HPI: Patient seen and examined. 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 2 to 12 grossly intact, [...] 08/21/191914 vte non-pharmacologic prophylaxis - none indicated (pr,mo) 08/21/19[address] activity - mobilize patient (pr,mo) VTE Prophylaxis: VTE prophylaxis appropriate Disposition: Home with [facility] Plan of care discussed with: Provider, RN, Patient SIGNATURE: Sue Bianchi DO PATIENT NAME: Elizabeth Modi DATE: August 22, 2019 TIME: 2:32 PM PAGER/CONTACT #: [phone] Normal [facility] US ARTERIAL PVR LOWERon US ARTERIAL PVR LOWER * * *Final Report* * * DATE OF EXAM: Aug 22 2019 10:00AM A2U 1107 - US ARTERIAL PVR LOWER / PROCEDURE REASON: necrotic right foot * * * * Physician Interpretation * * * * Non-Invasive Vascular Laboratory [facility] Lower Extremity Arterial Physiology Study Bilateral/Complete [...] Interpreting physician: Ryan Allen MD Final RP Pharmacy Informaticist: RICHARD Transcribe Date/Time: Aug 22 2019 9:04A Dictated by : RYAN ALLEN MD This examination was interpreted and the report reviewed and electronically signed by: RYAN ALLEN MD on Aug 22 2019 11:41AM EST Normal [facility] Vitamin B12on 08-22-2019 Cobalamin (Vitamin B12) [Mass/Vol] 944 pg/mL Normal 193-986 [facility] Comment on above: Performed By: #### P 8 #### [place] [address] CONSULT PROGon 08-21-2019 CONSULT PROG HNO ID: [id number] Author: Rahat Lemus (Pharmacist) Service: Pharmacy Author Type: Pharmacist Type: Consult Progress Note Filed: 08/21/2019 9:20 PM Note Text: Renal Dose Monitoring 1. Estimated CrCl: 52 (calculated from previous lab reported from of 1.2 and using IBW) 2. Recommendations: Zosyn 3.375g Dose:No Change Frequency:Increase frequency to Q6H - Rationale: Patient CrCl is greater than 40 and being infused over 30 minutes Pharmacy [id number] [facility] CONSULT PROG HNO ID: [id number] Author: Rahat Lemus (Pharmacist) Service: Pharmacy Author [...] have any questions[place] [phone]. Age: [age] year old Allergies: ALLERGIES No [...] results found for: PEGGY LEMUS, PHARMACIST Normal [facility] HISTORY PHYSICALon 0 HISTORY PHYSICAL HNO ID: [id number] Author: Karyna Perez Service: Hospital Medicine Author [...] After 7pm, please call cross cover pager #[phone] Subjective CHIEF COMPLAINT / REASON FOR ADMISSION: Right foot gangrene HPI: This is a 79 year old male has a past medical history of DM (diabetes mellitus) (HCC), Dyslipidemia, HTN (hypertension), and Hypothyroidism. sent as a transfer from [facility] for blackish coloration of multiple toe and [...] the right foot and was sent to [facility] for further evaluation.For this illness, patient's [...] this note may have been generated using DoYouRemember voice recognition software. Reasonable efforts were made to correct any dictation errors that resulted due to the programming of this software but some may still be present. Normal [facility] HOSPon 08-21-2019 HOSP Patient:Elizabeth Modi MRN: [...] After 7pm, please call cross cover pager #[phone] Subjective CHIEF COMPLAINT / REASON FOR ADMISSION: Right foot gangrene HPI: This is a 79 year old male has a past medical history of DM (diabetes mellitus) (HCC), Dyslipidemia, HTN (hypertension), and Hypothyroidism. sent as a transfer from [facility] for blackish coloration of multiple toe and [...] the right foot and was sent to [facility] for further evaluation.For this illness, patient's [...] Units SUBCUTANEOUS EVERY 12 HOURS 08/21/191915 -- The patient at bedside was counseled about clinical status, laboratory/imaging results, diagnoses, medication side effects, risk, and treatment plan, all questions were answered to patient's satisfaction and verbalized understanding SIGNATURE: Karyna Perez MD PATIENT NAME: Elizabeth Modi PAGER/CONTACT #: After 7 pm [phone] Disclaimer: Portions of this note may have been generated using DoYouRemember voice recognition software. Reasonable efforts were made [...] have any questions[place] [phone]. Age: [age] year old Allergies: ALLERGIES No [...] and being infused over 30 minutes Pharmacy [id number] Ana Luisa Crooks MD 08/22/2019 6:04 AM [...] questions or concerns Mon-Fri 6a-5p please page [phone]. After 5pm and on Weekends and Holidays, please page [phone] if in ICU or [phone] if on RNF. Service date: 08/22/2019 Service time: 4:01 AM Reason for consult: foot wounds Nature of consult: routine Subjective HPI Mr. Modi is a 79 year old male with necrotic L foot. Patient reports that he has only noticed this over the last week. Initially presented to [place] for this reason and was transferred to [facility] for care. Denies pain and states [...] have any questions, please contact Pharmacy at [phone]. Age: [age] year old Allergies: ALLERGIES No [...] results found for: PEGGY Walton, Pharmacist Pager: [phone] Previous Version Adali Murry APRN.ICE CREAM MAKER 08/22/2019 11:19 AM Signed WOUND CARE CONSULT HAND TIER NOTE SERVICE DATE: 08/22/2019 SERVICE TIME: 0910 TIME SPENT (minutes): 30 REASON FOR CONSULT: Eval R foot necrosis/wound CHIEF COMPLAINT: c/o necrotic toes and tissue to R foot. Subjective HISTORY OF PRESENT ILLNESS: Mr. Modi is a 79 year old male who is seen today with Yolanda Jackman Wound/tennis net maker, and presented to hospital with complaints of [...] found under the Get Images tab on [employer]. Photos are uploaded by the wound rn transitional care and may not be immediately available for viewing. Contact the wound and ostomy care department with questions. SIGNATURE: Adali Murry APRN.CNS PATIENT NAME: Elizabeth Modi DATE: August 22, 2019 TIME: 11:03 AM CONTACT#: [id number] Yadi Badillo DPM 08/22/2019 6:41 PM Signed ORTHOPAEDIC SURGERY CONSULT Pt: ELIZABETH MODI Date of Consultation: 08/22/2019 Physician Consulted: Dr. Badillo Reason for Consultation: Necrotic foot HPI: 79 year old male presented to [facility] on 08/21/2019 with complaints of changes [...] no longer doing that Employment: work with [employer] CURRENT ANTIBIOTICS: Zosyn Clindamycin vancomycin Current other [...] TIME: 1:42 PM PAGER/CONTACT #: [phone] Marita Aponte, RN, RN 08/22/2019 2:[address] [...] of fat/muscle stores;Patient/family self-report Estimated kilocalorie needs: 0769-4916 Calorie Calculation Method: 30-35 kcals/kg Estimated protein [...] August 22, 2019 TIME: 2:27 PM PAGER: [phone] Previous Version Sue Bianchi DO 08/22/2019 3:29 PM Signed [facility] PROGRESS NOTE SERVICE DATE: 08/22/2019 SERVICE TIME: 2:32 PM Hospital Medicine/Primary Attending: Sue Bianchi DO NIGHT AND WEEKEND COVERAGE: After 7pm, please call cross cover pager #[phone] Subjective INTERVAL HPI: Patient seen and examined. 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 2 to 12 grossly intact, [...] 08/21/191914 vte non-pharmacologic prophylaxis - none indicated (pr,mo) 08/21/191914 activity - mobilize patient ([place], [place]) VTE Prophylaxis: VTE prophylaxis appropriate Disposition: Home with [facility] Plan of care discussed with: Provider, RN, Patient SIGNATURE: Sue Bianchi DO PATIENT NAME: Elizabeth Modi DATE: August 22, 2019 TIME: 2:32 PM PAGER/CONTACT #: [phone] Gordo Figueroa MD 08/23/2019 1:07 PM Signed [facility] - Operative Report LEIZABETH MODI : 1940 AGE: 79. SEX: M PATIENT TYPE: I HOSP SVC: ORCA LOCATION: [id number] ATTENDING PHYSICIAN: Ara Singer M.D. CSN NUMBER: [id number] DATE OF SURGERY/PROCEDURE: 08/23/2019 INCISION/PROCEDURE START TIME: 8:42 AM INCISION CLOSE/PROCEDURE END TIME: 9:04 AM PREOPERATIVE DIAGNOSIS: Gangrenous changes of the right foot with gas in the subcutaneous tissues. POSTOPERATIVE DIAGNOSIS: Gangrenous changes of the right foot with gas in the subcutaneous tissues. SURGEON: Gordo Figueroa MD VERTICAL MILL OPERATOR: 1. Jennifer Crooks M.D. 2. Irvin Walker, surgical attendant. SURGERY/PROCEDURE: Guillotine right above ankle/below-knee amputation. ANESTHESIA: [...] area in stable condition. Gordo Figueroa MD DJW:[id number] /[id number] Previous Version Doris Eden MD 08/25/2019 9:16 AM Signed [facility] - Consultation PATIENT NAME: ELIZABETH MODI CSN: [id number] DATE OF : 1940 SEX/AGE: M/79 PATIENT TYPE: I HOSP [facility]: [facility] LOCATION: [id number] DATE OF SERVICE: 08/23/2019 TIME OF SERVICE: 01:15 PM REFERRING PHYSICIAN: Dexter Chávez MD REASON FOR CONSULTATION: Uncontrolled diabetes. HISTORY OF PRESENT ILLNESS: The patient is a 79-year-old male, who was transferred from [facility] with gangrene off [...] Lantus 10. Doris Eden MD Endocrinology SM:shima /[id number] Tom Prescott DO, 08/23/2019 1:43 AM Signed Patient seen multiple times throughout the evening. Care discussed with multiple RNs. 08/22/19 1400 08/22/19 1900 08/22/193 08/23/19 0131 BP: 137/54 (!) 128/48 110/68 [...] questions or concerns Mon-Fri 6a-5p please page [phone]. After 5pm and on Weekends and Holidays, [...] she gets here. Daughter states ubderstanding Marita Aponte, RN, RN 08/23/2019 8:09 AM Signed Tech [...] Units SUBCUTANEOUS q 12 H Mohammad F Congregation 5,000 Units at 08/22/19 0807 - [MAR Hold due to Transfer] aluminum-magnesium hydroxide-simethicone 200-200-20 mg/5 mL 30 mL (MAALOX,MYLANTA,MAG-AL PLUS) 30 mL ORAL DAILY PRN Mohammad F Congregation - [MAR Hold due to Transfer] ondansetron 4 mg tab(s) (ZOFRAN) 4 mg ORAL q 6 H PRN Mohammad F Congregation Or - [MAR Hold due to Transfer] ondansetron (PF) 4 mg injection (ZOFRAN) 4 mg INTRAVENOUS q 6 H PRN Mohammad F Congregation - [MAR Hold due to Transfer] polyethylene glycol 3350 17 g packet (MIRALAX, GLYCOLAX) 17 g ORAL DAILY PRN Mohammad F Congregation - [MAR Hold due to Transfer] docusate sodium 100 mg cap(s) (COLACE) 100 mg ORAL BID PRN Mohammad F Congregation - [MAR Hold due to Transfer] magnesium hydroxide 400 mg/5 mL 30 mL (MOM) 30 mL ORAL DAILY PRN Mohammad F Congregation - [MAR Hold due to Transfer] bisacodyl 10 mg suppository (DULCOLAX) 10 mg RECTAL DAILY PRN Mohammad F Congregation - [MAR Hold due to Transfer] acetaminophen 650 mg tab(s) (TYLENOL) 650 mg ORAL q 6 H PRN Mohammad F Congregation - [MAR Hold due to Transfer] atorvastatin 40 mg tab(s) (LIPITOR) 40 mg ORAL DAILY Mohammad F Congregation 40 mg at 08/22/19 2010 - [MAR Hold due to Transfer] lisinopril 10 mg tab(s) (ZESTRIL, PRINIVIL) 10 mg ORAL DAILY Mohammad F Congregation 10 mg at 08/22/19 0807 - [MAR Hold due to Transfer] levothyroxine 25 mcg tab(s) (SYNTHROID) 25 mcg ORAL DAILY Mohammad F Congregation 25 mcg at 08/22/19 0600 - [MAR Hold due to Transfer] insulin lispro pen (rapid acting) (HumaLOG KWIKPEN) SUBCUTANEOUS w MEALS AND HS Mohammad F Congregation 1 Units at 08/22/192128 - [MAR Hold due to Transfer] dextrose 40 % 15 g 15 g ORAL PRN Mohammad F Congregation Or - [MAR Hold due to Transfer] glucagon 1 mg injection (GLUCAGEN) 1 mg INTRAMUSCULAR PRN Mohammad F Congregation Or - [MAR Hold due to Transfer] dextrose 50% in water 25 mL syringe 12.5 g INTRAVENOUS PRN Mohammad F Congregation - [MAR Hold due to Transfer] vancomycin iv piggyback 1.25 g in D5W 250 mL (VANCOCIN) 1.25 g INTRAVENOUS q 12 HR Mohammad F Congregation 250 mL/hr at 08/22/192009 1.25 g at 08/22/192009 - [MAR Hold due to Transfer] vancomycin dosing and monitoring per pharmacy OTHER As Directed Mohammad F Congregation - [MAR Hold due to Transfer] piperacillin-tazobacta m iv piggyback 3.375 g in dextrose (iso-osmotic) 50 mL (ZOSYN) 3.375 g INTRAVENOUS q 6 H Mohammad F Congregation 100 mL/hr at 08/23/19 0549 3.375 g at 08/23/19 0549 - [MAR Hold due to Transfer] clindamycin iv piggyback 600 mg in D5W 50 mL (CLEOCIN) 600 mg INTRAVENOUS q 6 H Mohammad F Congregation 100 mL/hr at 08/23/19 0549 600 mg [...] August 23, 2019 TIME: 8:32 AM CSN: [id number] Previous Version Tom Prescott DO, DO 08/23/2019 [...] 08/22/19699 - 08/23/1965808/23/19699 - 08/24/19 0659 Shift 0492-4493 7589-8361 4727-5383 24 Hour Total 7716-6160 1908-3671 2249-3033 24 Hour Total INTAKE PO 240 240 PO 240 240 Shift Total 240 240 OUTPUT Urine 500 643 374 5403 Void (ml) 500 822 438 9990 Shift Total 500 815 907 8387 Weight (kg) 85 85 85 85 85 [...] 1.25 g INTRAVENOUS q 12 HR - [AUG Hold due to Transfer] vancomycin dosing and monitoring per pharmacy OTHER As Directed - [AUG Hold due to Transfer] piperacillin-tazobacta m iv piggyback 3.375 g in dextrose (iso-osmotic) 50 mL (ZOSYN) 3.375 g INTRAVENOUS q 6 H - [AUG Hold due to Transfer] clindamycin iv piggyback [...] and plan discussed with attending: Dr. Figueroa, diamond saw operator for Dr. Parmar SIGNATURE: Tom Prescott DO [...] assistance of the resident and the surgical attendant BRIEF OP / PROCEDURE NOTE LOG ID: [id number] Surgery/Procedure Date: 08/23/2019 Incision/Procedure Start Time: 8:42 AM Incision Close/Procedure End Time: 9:04 AM Surgeon(s)/Procedurali st(s) and Student Driving Instructor(s): Surgeon(s) and Role: * Gordo Figueroa - [...] DO 08/23/2019 3:48 PM Signed [facility] PROGRESS NOTE SERVICE DATE: 08/23/2019 SERVICE TIME: 12:20 PM Hospital Medicine/Primary Attending: Sue Bianchi DO NIGHT AND WEEKEND COVERAGE: After 7pm, please call cross cover pager #[phone] Subjective INTERVAL HPI: Patient seen and examined. 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 2 to 12 grossly intact, no focal motor or sensory deficits noted, speech normal Psych- A ANDO x 3, mood normal Skin- R lower extremity dressing intact, wound care notes and images reviewed Lines, Drains, and Airways Line Peripheral 08/21/192238 Assessment Left Antecubital 20 Gauge 1 day Peripheral 08/21/190 Assessment Right Antecubital 20 Gauge 1 day [...] 08/21/191914 vte non-pharmacologic prophylaxis - none indicated (pr,mo) 08/21/191914 activity - mobilize patient ([place], [place]) VTE Prophylaxis: VTE prophylaxis appropriate Disposition: Home with [facility] Plan of care discussed with: Provider, RN, Patient SIGNATURE: Sue Bianchi DO PATIENT NAME: Elizabeth Modi DATE: August 23, 2019 TIME:12:20 PM PAGER/CONTACT #: [phone] Doris Eden MD 08/23/2019 1:21 PM Signed [...] Inpatient Needs Prior to Discharge: OT/PT Evaluation;Discharge Transportation;[facility];Precertificat ion MEDICAL: [facility] [place] 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 Last discharge within 30 days: No Advance Directive: Current Advance Directive: None Corporate Executive Chef Attempted to Assist with AD Completion: Yes [...] Mostly I feel financially burdened by my zgp-if-kothpa expenses for my prescription medication:: 0 - Agree Somewhat Risk Score: 0 Patient is categorized as: Low risk < 2 Are you interested in bedside delivery of your medications? No Is Patient Psychosocially Complex?: No ASSESSMENT AND PLAN: Medical Needs: Medical Needs: None Psychosocial Needs: Psychosocial Needs: None FREEDOM OF CHOICE EXPLAINED: [place] of Choice Given: Yes Level of Care Discussed: Inpatient Rehab Facility Financial Disclosure Provided: Yes Financial Disclosure Comments: ESR Provider List: (Pt refused list- would like [facility]. ) POTENTIAL TRANSITION PLANS Rehab Facility Spoke with pt at the bedside. 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 Pt states that he has a PCP in [place]. Pt is s/p right foot amp. Anticipate AR needs at d/c. Await PT/OT evals. Pt would like [facility] rehab- referral sent. Pt will need auth and likely transport at d/c. Will follow. SIGNATURE: Tami Patricio RN PATIENT NAME: Elizabeth Modi DATE: August 23, 2019 TIME: 3:18 PM PAGER/CONTACT #: [phone] Paulo Landis MD 08/23/2019 3:55 PM Addendum [...] labs Paulo Landis MD Infectious Disease Respiratory [place] Pager: [phone] August 23, 2019 Previous Version ISAC NAVARRO [...] have any questions[place] [phone]. Age: [age] year old Allergies: ALLERGIES No [...] questions or concerns Mon-Mon 6a-5p please page [phone]. After 5pm and on Weekends and Holidays, please page [phone] if in ICU or [phone] if on RNF. Subjective SUBJECTIVE: Denies leg [...] 0659 08/24/19 07 - 08/25/19 0659 Shift 4477-3772 6587-7692 1861-2254 24 Hour Total 9817-4880 3997-0879 6195-8307 24 Hour Total INTAKE IV 625 625 OR Crystalloid intake (mL) 250 250 Volume (mL) (lactated ringers infusion) 125 125 Volume (mL) (vancomycin iv piggyback 1.25 g in D5W 250 mL (VANCOCIN)) 250 250 Shift Total 625 625 OUTPUT Urine 953 281 4315 Void (ml) 322 196 6484 Blood 50 50 Estimated Blood loss 50 50 Shift Total 784 139 0261 Weight (kg) 85 85 85 85 85 [...] 3 g in NaCl 0.9% 100 mL MB+/ADD-Flowood (UNASYN) 3 g INTRAVENOUS q 6 H [...] pharmacy if questions. MARTHA RYAN PHARMACIST Ext: [phone] Edy Paredes MD 08/24/2019 9:20 AM Signed Edy Paredes MD, MS, FACP, [facility] Division of Infectious Diseses [address] [place] [address] Office: [phone] INFECTIOUS DISEASE CONSULT PROGRESS NOTE SERVICE DATE: [...] 24, 2019 TIME: 9:16 AM PAGER/CONTACT #: [phone] Sue Bianchi DO 08/24/2019 5:16 PM Signed [facility]PARTMENT [facility] MEDICINE PROGRESS NOTE SERVICE DATE: 08/24/2019 SERVICE TIME: 12:40 PM Hospital Medicine/Primary Attending: Sue Bianchi DO NIGHT AND WEEKEND COVERAGE: After 7pm, please call cross cover pager #[phone] Subjective INTERVAL HPI: Patient seen and examined. 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 2 to 12 grossly intact, [...] 08/21/191914 vte non-pharmacologic prophylaxis - none indicated (pr,mo) 08/21/191914 activity - mobilize patient ([place], [place]) VTE Prophylaxis: VTE prophylaxis appropriate Disposition: Home with [facility] Plan of care discussed with: Provider, RN, Patient SIGNATURE: Sue Bianchi DO PATIENT NAME: Elizabeth Modi DATE: August 24, 2019 TIME:12:40 PM PAGER/CONTACT #: [phone] NADIR Cox/Serene 08/24/2019 1:07 PM Signed Occupational Therapy Evaluation SERVICE DATE: 08/24/2019 SERVICE TIME: 1133 to 1208 ROOM: [id number] Recommended Discharge Disposition: Acute Rehab Justification For [...] (ADL);General symptoms and signs-other Interventions Provided: Evaluation;Self Residential Management (06867) $ Evaluation-Moderate (86421) Billed Units: 1 unit OT Evaluation Moderate [...] occupational performance: thyroid, HTN, DM, claudication Self Residential Management (10470) Treatment Minutes: 10 1 unit Skilled Intervention(s): [...] 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 Plan for possible surgery Friday 08/25 for wound closure/further cut down of right lower extremity. 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 Patient agreeable to (more content not included)... Normal [facility] No Panel Information [facility] Vital Signs Date Time Vital Sign Value Performing Clinician Facility 10-16-2024 07:59-0400 Body height 167.[address] Diana Salmeron MD Work Phone: [facility] 10-16-2024 07:59-0400 Body mass index (BMI) [Ratio] 29 kg/m2 Dr. Diana Salmeron MD Work Phone: [facility] 10-16-2024 07:59-0400 Body weight 81.[address] Diana Salmeron MD Work Phone: [facility] 10-16-2024 07:59-0400 Diastolic blood pressure 74 mm[Hg] Dr. Diana Salmeron MD Work Phone: [facility] 10-16-2024 07:59-0400 Heart rate 64 /min Dr. Diana Salmeron MD Work Phone: [facility] 10-16-2024 07:59-0400 Respiratory rate 18 /min Dr. Diana Salmeron MD Work Phone: 1(390)929-875990 [place] [address] 10-16-2024 07:59-0400 Systolic blood pressure 131 mm[Hg] Dr. Diana Salmeron MD Work Phone: [facility] 10-16-2024 00:07-0400 Body temperature 97.8 [degF] Dr. Diana Salmeron MD Work Phone: [facility] 10-16-2024 00:07-0400 Diastolic blood pressure 76 mm[Hg] Dr. Diana Salmeron MD Work Phone: [facility] 10-16-2024 00:07-0400 Heart rate 68 /min Dr. Diana Salmeron MD Work Phone: [facility] 10-16-2024 00:07-0400 Respiratory rate 16 /min Dr. Diana Salmeron MD Work Phone: [facility] 10-16-2024 00:07-0400 SaO2% (BldA) [Mass fraction] 97 % Dr. Diana Salmeron MD Work Phone: [facility] 10-16-2024 00:07-0400 Systolic blood pressure 148 mm[Hg] Dr. Diana Salmeron MD Work Phone: [facility] 10-15-2024 17:47-0400 Body mass index (BMI) [Ratio] 29.9 kg/m2 Dr. Diana Salmeron MD Work Phone: [facility] 10-15-2024 17:47-0400 Body weight [address] Diana Salmeron MD Work Phone: [facility] 10-15-2024 16:00-0400 Body height 167.[address] Diana Salmeron MD Work Phone: [facility] 10-01-2024 13:22-0400 Body height 167.6 cm Nikolai Connor PA-C Work Phone: [facility] Comment on above: After amputations per patient. 10-01-2024 13:22-0400 Body temperature 97.3 [degF] Nikolai Connor PA-C Work Phone: [facility] 10-01-2024 13:22-0400 Diastolic blood pressure 82 mm[Hg] Nikolai Connor PA-C Work Phone: [facility] Comment on above: Mario notified of blood pressure- pat ient aware to let staff where he resides know of his blood pressure. 10-01-2024 13:22-0400 Heart rate 62 /min Nikolai Connor PA-C Work Phone: [facility] 10-01-2024 13:22-0400 Respiratory rate 14 /min Nikolai Connor PA-C Work Phone: [facility] 10-01-2024 13:22-0400 SaO2% (BldA) [Mass fraction] 97 % Nikolai Connor PA-C Work Phone: [facility] 10-01-2024 13:22-0400 Systolic blood pressure 182 mm[Hg] Nikolai Connor PA-C Work Phone: [facility] Comment on above: Mario notified of blood pressure- pat ient aware to let staff where he resides know of his blood pressure. 01-11-2023 12:58-0400 Body temperature 97.4 [degF] Dr. Dexter Reyes Work Phone: [facility] 01-11-2023 12:58-0400 Diastolic blood pressure 65 mm[Hg] Dr. Dexter Reyes Work Phone: [facility] 01-11-2023 12:58-0400 Heart rate 66 /min Dr. Dexter Reyes Work Phone: 0(108)785-310773 [place] [address] 01-11-2023 12:58-0400 Respiratory rate 17 /min Dr. Dexter Reyes Work Phone: 6(650)122-719373 [place] [address] 01-11-2023 12:58-0400 Systolic blood pressure 113 mm[Hg] Dr. Dexter Reyes Work Phone: 4(224)578-139417 [place] [address] 12-17-2022 12:00-0400 Body temperature 98.8 [degF] Dr. Dexter Reyes Work Phone: 2(140)092-922267 [address] 12-17-2022 12:00-0400 Diastolic blood pressure 68 mm[Hg] Dr. Dexter Reyes Work Phone: 9(886)840-609417 [place] [address] 12-17-2022 12:00-0400 Heart rate 60 /min Dr. Dexter Reyes Work Phone: 1(337)474-440767 [address] 12-17-2022 12:00-0400 Inhaled oxygen flow rate 2 L/min Dr. Dexter Reyes Work Phone: 5(197)104-255467 [address] 12-17-2022 12:00-0400 Respiratory rate 18 /min Dr. Dexter Reyes Work Phone: 9(879)694-614373 [place] [address] 12-17-2022 12:00-0400 SaO2% (BldA) [Mass fraction] 95 % Dr. Dexter Reyes Work Phone: 1(036)056-366673 [place] [address] 12-17-2022 12:00-0400 Systolic blood pressure 147 mm[Hg] Dr. Dexter Reyes Work Phone: [facility] 12-17-2022 06:00-0400 Body mass index (BMI) [Ratio] 32.6 kg/m2 Dr. Dexter Reyes Work Phone: [facility] 12-17-2022 06:00-0400 Body weight 92.[address] Dexter Reyes Work Phone: [facility] 12-15-2022 20:05-0400 Inhaled oxygen concentration 4 % Dr. Dexter Reyes Work Phone: [facility] 12-15-2022 10:54-0400 Body height 167.[address] Dexter Reyes Work Phone: [facility] 09-01-2022 09:59-0400 Body temperature 97.7 [degF] Shana Delgado MD Work Phone: [facility] 09-01-2022 09:59-0400 Diastolic blood pressure 68 mm[Hg] Shana Delgado MD Work Phone: [facility] 09-01-2022 09:59-0400 Heart rate 66 /min Shana Delgado MD Work Phone: [facility] 09-01-2022 09:59-0400 Systolic blood pressure 135 mm[Hg] Shana Delgado MD Work Phone: [facility] 01-13-2022 13:09-0400 Heart rate 79 /min DR KARL BARRERA MD [facility] 01-13-2022 11:36-0400 Body temperature 97.88 [degF] DR KARL BARRERA MD [facility] 01-13-2022 11:36-0400 Diastolic Blood Pressure NBP [address] KARL BARRERA MD [facility] 01-13-2022 11:36-0400 Heart rate 79 /min DR KARL BARRERA MD [facility] 01-13-2022 11:36-0400 Mean blood pressure 79 mm[Hg] DR KARL BARRERA MD [facility] 01-13-2022 11:36-0400 Reason For Taking VItal Signs DR KARL BARRERA MD [address] [place] [address] 01-13-2022 11:36-0400 Respiratory rate 18 /min DR KARL BARRERA MD [address] [place] [address] 01-13-2022 11:36-0400 Systolic Blood Pressure NBP [address] KARL BARRERA MD [address] [place] [address] 01-13-2022 08:42-0400 Heart rate 81 /min DR KARL BARRERA MD [address] [place] [address] 01-13-2022 08:42-0400 Heart rate 82 /min DR KARL BARRERA MD [address] [place] [address] 01-13-2022 07:06-0400 Body temperature 97.52 [degF] DR KARL BARRERA MD [address] [place] [address] 01-13-2022 07:06-0400 Diastolic Blood Pressure NBP [address] KARL BARRERA MD [address] [place] [address] 01-13-2022 07:06-0400 Mean blood pressure 79 mm[Hg] DR KARL BARRERA MD [address] [place] [address] 01-13-2022 07:06-0400 Reason For Taking VItal Signs DR KARL BARRERA MD [address] [place] [address] 01-13-2022 07:06-0400 Respiratory rate 18 /min DR KARL BARRERA MD [address] [place] [address] 01-13-2022 07:06-0400 Systolic Blood Pressure NBP [address] KARL BARRERA MD [address] [place] [address] 01-13-2022 04:52-0400 Body temperature 97.7 [degF] DR KARL BARRERA MD [address] [place] [address] 01-13-2022 04:52-0400 Diastolic Blood Pressure NBP [address] KARL BARRERA MD [address] [place] [address] 01-13-2022 04:52-0400 Mean blood pressure 83 mm[Hg] DR KARL BARRERA MD [address] [place] [address] 01-13-2022 04:52-0400 Reason For Taking VItal Signs DR KARL BARRERA MD [address] [place] [address] 01-13-2022 04:52-0400 Respiratory rate 18 /min DR KARL BARRERA MD [address] [place] [address] 01-13-2022 04:52-0400 Systolic Blood Pressure NBP [address] KARL BARRERA MD [address] [place] [address] 01-12-2022 16:59-0400 Heart rate 71 /min DR KARL BARRERA MD [address] [place] [address] 01-12-2022 09:02-0400 Heart rate 71 /min DR KARL BARRERA MD [address] [place] [address] 01-11-2022 04:44-0400 Diastolic blood pressure 79 mm[Hg] DR KARL BRARERA MD [address] [place] [address] 01-11-2022 04:44-0400 Mean blood pressure 110 mm[Hg] DR KARL BARRERA MD [address] [place] [address] 01-11-2022 04:44-0400 Systolic blood pressure 171 mm[Hg] DR KARL BARRERA MD [address] [place] [address] 01-11-2022 04:02-0400 Diastolic blood pressure 71 mm[Hg] DR KARL BARRERA MD [address] [place] [address] 01-11-2022 04:02-0400 Mean blood pressure 105 mm[Hg] DR KARL BARRERA MD [address] [place] [address] 01-11-2022 04:02-0400 Systolic blood pressure 173 mm[Hg] DR KARL BARRERA MD [address] [place] [address] 01-10-2022 02:13-0400 Diastolic blood pressure 73 mm[Hg] DR KARL BARRERA MD [address] [place] [address] 01-10-2022 02:13-0400 Systolic blood pressure 179 mm[Hg] DR KARL BARRERA MD [address] [place] [address] 01-10-2022 01:27-0400 Signs/Symptoms Transfusion Reaction DR KARL BARRERA MD [address] [place] [address] 01-10-2022 01:27-0400 Transfusion Documentation Ended/Paper DR KARL BARRERA MD [address] [place] [address] 01-10-2022 00:56-0400 Signs/Symptoms Transfusion Reaction DR KARL BARRERA MD [address] [place] [address] 01-10-2022 00:27-0400 Heart rate 63 /min DR KARL BARRERA MD [address] [place] [address] 01-10-2022 00:11-0400 Signs/Symptoms Transfusion Reaction No DR KARL BARRERA MD [address] [place] [address] 01-10-2022 00:11-0400 Heart rate 64 /min DR KARL BARRERA MD [address] [place] [address] 01-09-2022 22:36-0400 Transfusion Documentation Started/Paper DR KARL BARRERA MD [address] [place] [address] 01-06-2022 09:26-0400 Diastolic blood pressure 45 mm[Hg] DR KARL BARRERA MD [address] [place] [address] 01-06-2022 09:26-0400 Mean blood pressure 64 mm[Hg] DR KARL BARRERA MD [address] [place] [address] 01-06-2022 09:26-0400 Systolic blood pressure 103 mm[Hg] DR KARL BARRERA MD [address] [place] [address] 01-06-2022 08:38-0400 Diastolic blood pressure 50 mm[Hg] DR KARL BARRERA MD [address] [place] [address] 01-06-2022 08:38-0400 Mean blood pressure 69 mm[Hg] DR KARL BARRERA MD [address] [place] [address] 01-06-2022 08:38-0400 Systolic blood pressure 107 mm[Hg] DR KARL BARRERA MD [address] [place] [address] 01-06-2022 07:40-0400 Diastolic blood pressure 45 mm[Hg] DR KARL BARRERA MD [address] [place] [address] 01-06-2022 07:40-0400 Mean blood pressure 66 mm[Hg] DR KARL BARRERA MD [address] [place] [address] 01-06-2022 07:40-0400 Systolic blood pressure 113 mm[Hg] DR KARL BARRERA MD [address] [place] [address] 01-05-2022 20:12-0400 SaO2% (BldA) [Mass fraction] 98.4 % DR KARL BARRERA MD [facility] 01-05-2022 18:47-0400 SaO2% (BldA) [Mass fraction] 97.6 % DR KARL BARRERA MD [facility] 01-05-2022 17:13-0400 SaO2% (BldA) [Mass fraction] 97.7 % DR KARL BARRERA MD [facility] 01-05-2022 12:30-0400 Body temperature 98.98 [degF] DR KARL BARRERA MD [address] 01-05-2022 12:25-0400 Body temperature 99 [degF] DR KARL BARRERA MD [address] 01-05-2022 12:20-0400 Body temperature 99.07 [degF] DR KARL BARRERA MD [facility] 01-05-2022 12:20-0400 Body temperature 98.51 [degF] DR KARL BARRERA MD [facility] 01-05-2022 12:15-0400 Body temperature 98.6 [degF] DR KARL BARRERA MD [address] 01-05-2022 12:10-0400 Body temperature 98.67 [degF] DR KARL BARRERA MD [address] [place] [address] 01-05-2022 11:54-0400 SaO2% (BldA) [Mass fraction] 98.2 % DR KARL BARRERA MD [facility] 01-05-2022 11:19-0400 SaO2% (BldA) [Mass fraction] 99.4 % DR KARL BARRERA MD [facility] 01-05-2022 10:44-0400 SaO2% (BldA) [Mass fraction] 99.4 % DR KARL BARRERA MD [facility] 01-03-2022 23:07-0400 Mean blood pressure 83 mm[Hg] DR KARL BARRERA MD [address] [place] [address] 01-03-2022 12:05-0400 Body height [address] KARL BARRERA MD [address] [place] [address] 01-03-2022 12:05-0400 Body weight 81.[address] KARL BARRERA MD [address] [place] [address] 01-03-2022 12:05-0400 Body weight 35.28 kg/m2 DR KARL BARRERA MD [address] [place] [address] 01-03-2022 04:54-0400 Body weight 81.[address] KARL BARRERA MD [address] [place] [address] 12-31-2021 03:38-0400 Heart rate 80 /min DR KARL BARRERA MD [address] [place] [address] 12-30-2021 05:08-0400 Body weight 103.[address] KARL BARRERA MD [facility] 02-09-2021 12:00-0400 Diastolic blood pressure 53 mm[Hg] Ammy Vicente MD Work Phone: [facility] Work Phone: 02-09-2021 12:00-0400 Heart rate 51 /min Ammy Vicente MD Work Phone: [facility] Work Phone: 02-09-2021 12:00-0400 SaO2% (BldA) [Mass fraction] 91 % Ammy Vicente MD Work Phone: [facility] Work Phone: 02-09-2021 12:00-0400 Systolic blood pressure 110 mm[Hg] Ammy Vicente MD Work Phone: [facility] Work Phone: 02-09-2021 11:45-0400 Respiratory rate 16 /min Ammy Vicente MD Work Phone: [facility] Work Phone: 02-09-2021 10:58-0400 Body temperature 98.1 [degF] Ammy Vicente MD Work Phone: [facility] Work Phone: 2 08:21-0400 Body height 142.2 cm Ammy Vicente MD Work Phone: [facility] Work Phone: 02-09-2021 08:21-0400 Body mass index (BMI) [Ratio] 36.77 kg/m2 Ammy Vicente MD Work Phone: [facility] Work Phone: 02-09-2021 08:21-0400 Body weight 74.39 kg Ammy Vicente MD Work Phone: [facility] Work Phone: Encounters Encounter Date Encounter Type Care Provider Facility Start: 01-28-2025 ambulatory Victor M DAVID Facility:[facility] Start: 01-28-2025 [facility] Start: 01-22-2025 ambulatory Victor M matute OLS Facility:[facility] Start: 01-22-2025 [facility] Start: 01-20-2025 ambulatory ERIC Stephany MONTGOMERY Brian [facility] Start: 01-20-2025 [facility] Start: 01-14-2025 End: 01-14-2025 ambulatory GAYLA CLINE Facility:[id number] Start: 01-14-2025 End: 01-14-2025 Patient encounter procedure Gayla Cline MD Work Phone: Urology Comment on above: Gross hematuria (Margarita dariel Dx); Left renal mass Start: 12-24-2024 End: 12-24-[address] Diana Salmeron MD Work Phone: [facility] Start: 12-24-2024 End: 12-24-2024 Patient encounter procedure Christina Whipple [employer]-C -[facility] Work Phone: Start: 12-18-2024 ambulatory Victor M matute OLS Facility:[facility] Start: 12-18-2024 Registered Referred Victor M Rojas MD [facility] Start: 12-03-2024 End: 12-03-[address] Diana Salmeron MD Work Phone: [facility] Start: 12-03-2024 End: 12-03-[address] Victor M Rojas MD [facility] Work Phone: Start: 11-20-2024 ambulatory Victor M matute OLS Facility:[facility] Start: 11-20-2024 [facility] Start: 11-07-2024 End: 11-07-[address] Diana Salmeron MD Work Phone: [facility] Start: 11-07-2024 End: 11-07-2024 Departed Referred Christina Johanseneliane [employer]C -[facility] Start: 11-07-2024 Registered Referred Christina Kauffman etta [employer]C -[facility] Start: 11-07-2024 End: 11-07-2024 ambulatory Christina Whipple OLS Facility:[facility] Start: 10-23-2024 End: 10-23-[address] Diana Salmeron MD Work Phone: [facility] Work Phone: Start: 10-23-2024 End: 10-23-2024 Departed Referred Vicotr M Rojas MD -[facility] Start: 10-23-2024 End: 10-23-2024 ambulatory Victor M DAVID Facility:[facility] Start: 10-16-2024 End: 10-16-2024 Patient encounter procedure Lauren Hutchison ID -[facility] Work Phone: Start: 10-16-2024 End: 10-16-2024 ambulatory Diana Salmeron Facility:[facility] Start: 10-15-2024 End: 10-16-2024 Emergency department patient visit Dr. Diana Salmeron MD Work Phone: -Emergency Department Work Phone: Start: 10-04-2024 End: 12-04-2024 Follow-up encounter Nikolai Connor PA-C Work Phone: Urology Start: 10-01-2024 End: 10-04-2024 Telephone encounter Nikolai Connor PA-C Work Phone: Urology Start: 10-01-2024 End: 10-01-2024 ambulatory NIKOLAI CONNOR Facility:[facility] Start: 10-01-2024 End: 10-01-2024 Patient encounter procedure Nikolai Connor PA-C Work Phone: Urology Comment on above: Gross hematuria (Margarita dariel Dx); Screening for genitourinary condition Start: 09-24-2024 End: 09-24-[address] Diana Salmeron MD Work Phone: [facility] Work Phone: Start: 09-24-2024 End: 09-24-[address] Victor M Rojas MD -[facility] Work Phone: Start: 09-18-2024 End: 09-18-[address] Diana Salmeron MD Work Phone: [facility] Work Phone: Start: 09-18-2024 End: 09-18-2024 Departed Referred Victor M Rojas MD -[facility] Start: 09-18-2024 Registered Referred Victor M Rojas MD -[facility] Start: 09-18-2024 End: 09-18-2024 ambulatory Victor M DAVID Facility:[facility] Start: 09-06-2024 End: 09-06-2024 Patient encounter procedure Kacie GARLAND -[facility] Work Phone: Start: 09-06-2024 End: 09-06-2024 ambulatory Diana Salmeron Facility:[facility] Start: 09-05-2024 End: 09-05-2024 ambulatory Christina Whipple NP Facility:[facility] Start: 09-05-2024 End: 09-05-2024 Patient encounter procedure Christina Whipple [employer]- -[facility] Work Phone: Start: 09-03-2024 End: 09-03-2024 ambulatory Christina Whipple [employer] Facility:[facility] Start: 09-03-2024 End: 09-03-2024 Patient encounter procedure Christina Whipple [employer]- -[facility] Work Phone: Start: 08-21-2024 End: 08-21-[address] Diana Salmeron MD Work Phone: [facility] Work Phone: Start: 08-21-2024 End: 08-21-2024 [facility] Start: 08-21-2024 End: 08-21-2024 ambulatory Victor M DAVID Facility:[facility] Start: 08-01-2024 ambulatory Victor M DAVID Facility:[facility] Start: 08-01-2024 [facility] Start: 07-30-2024 ambulatory Butros Latouf Facility: [facility] Start: 07-24-2024 ambulatory Victor M DAVID Facility:[facility] Start: 07-24-2024 [facility] Start: 07-23-2024 End: 07-23-2024 ambulatory Victor M Rojas Facility:[facility] Start: 07-23-2024 End: 07-23-[address] Victor M Rojas MD -[facility] Work Phone: Start: 07-05-2024 End: 07-05-2024 ambulatory Christina Whipple NP Facility:[facility] Start: 07-05-2024 End: 07-05-2024 Patient encounter procedure Christina Whipple [employer]-C -[facility] Work Phone: Start: 07-02-2024 End: 07-02-2024 ambulatory Nikolai Connor PA-C Work Phone: Urology Comment on above: CT urogram results Start: 07-02-2024 End: 07-02-2024 E-mail encounter from caregiver Nikolai Connor PA-C Work Phone: Urology Start: 06-28-2024 End: 06-28-2024 ambulatory NIKOLAI CONNOR Facility:[facility] Start: 06-28-2024 End: 06-28-2024 Subsequent hospital visit by physician [facility] ([facility]) Work Phone: Cat Scan Comment on above: Gross hematuria [R31 .0] Start: 06-27-2024 ambulatory Butros Latouf Facility: [facility] Start: 06-27-2024 [facility] Start: 06-21-2024 End: 07-09-2024 Telephone encounter Nikolai Connor PA-C Work Phone: Urology Comment on above: Results Start: 06-20-2024 ambulatory Butros Latouf Facility: [facility] Start: 06-20-2024 [facility] Start: 06-18-2024 End: 06-18-2024 ambulatory NIKOLAI CONNOR Facility:[facility] Start: 06-18-2024 End: 06-18-2024 Patient encounter procedure Nikolai Connor PA-C Work Phone: Urology Comment on above: Screening for genito urinary condition (Primary Dx); Gross hematuria; Left renal mass Start: 06-17-2024 End: 06-17-2024 Patient encounter procedure Christina Whipple NP-[facility] Work Phone: Start: 06-17-2024 End: 06-17-2024 ambulatory Christina Whipple NP Facility:[facility] Start: 06-17-2024 [facility] Start: 06-06-2024 End: 06-06-2024 Patient encounter procedure Kacie GARLAND -[facility] Work Phone: Start: 06-06-2024 End: 06-06-2024 ambulatory Butros Latouf Facility:[facility] Start: 05-21-2024 End: 05-22-2024 ambulatory Butros Latouf Facility:[facility] Start: 05-08-2024 End: 05-08-2024 ambulatory Butros Latouf Facility:[facility] Start: 04-24-2024 End: 04-24-2024 ambulatory Butros Latouf Facility:[facility] Start: 04-04-2024 End: 04-04-2024 ambulatory Butros Latouf Facility:[facility] Start: 03-26-2024 End: 03-26-2024 ambulatory Butros Latouf Facility:[facility] Start: 03-25-2024 ambulatory Eric Ulises Facility: [facility] Start: 03-20-2024 ambulatory Butros Latouf Facility: [facility] Start: 03-04-2024 End: 03-04-2024 ambulatory Sohail Owen Facility:[facility] Start: 02-28-2024 End: 02-28-2024 ambulatory Butros Latouf Facility:[facility] Start: 02-22-2024 End: 02-22-2024 ambulatory Victor M DAVID Facility:[facility] Start: 01-08-2024 End: 01-08-[address] KENNY CHUA MD Facility:[facility] Start: 04-13-2023 Emergency department patient visit VALENTIN [facility] Start: 03-27-2023 Telephone encounter Urology (History ) Urology Start: 02-08-2023 End: 02-08-[address] Dexter Reyes Work Phone: [facility] Work Phone: Start: 02-08-2023 End: 02-08-[address] Dexter Reyes Work Phone: [facility] Work Phone: Start: 01-30-2023 End: 01-30-[address] Dexter Reyes Work Phone: [facility] Work Phone: Start: 01-30-2023 End: 01-30-[address] Dexter Reyes [facility] Work Phone: Start: 01-11-2023 End: 01-11-[address] Dexter Reyes Work Phone: [facility] Work Phone: Start: 12-17-2022 Non-patient / Non-visit Dr. Robel Reyes Work Phone: [facility] Work Phone: Start: 12-16-2022 Non-patient / Non-visit Dr. Robel Reyes Work Phone: [facility] Start: 12-16-2022 Non-patient / Non-visit Dr. Robel Reyes Work Phone: [facility] Work Phone: Start: 12-15-2022 Non-patient / Non-visit Dr. Robel Reyes Work Phone: [facility] Start: 12-15-2022 Non-patient / Non-visit Dr. Robel Reyes Work Phone: [facility] Start: 12-15-2022 Non-patient / Non-visit Dr. Robel Reyes Work Phone: [facility] Work Phone: Start: 12-14-2022 End: 12-17-2022 Evaluation and management of inpatient Dr. Dexter Reyes [facility] Work Phone: Start: 12-14-2022 End: 01-08-2024 Pre-admission assessment DR KENNY CHUA MD [facility] Start: 12-14-2022 Non-patient / Non-visit Dr. Robel Reyes Work Phone: [facility] Work Phone: Start: 09-06-2022 Telephone encounter Quan raygoza DO Work Phone: Rheumatology Comment on above: Patient Update Start: 09-01-2022 End: 09-01-2022 Patient encounter procedure Terence Phelps MD Work Phone: Ophthalmology Comment on above: Optic nerve edema (P rimary Dx) Vision changes (Prim anish Dx); Photosensitivity; PVD (peripheral vascular disease) (HCC); Type 2 diabetes mellitus with other specified complication, without long-term current use of insulin (HCC); snf current use of systemic steroids; Vitamin D deficiency Start: 01-17-2022 End: 01-17-2022 Patient encounter procedure HUNTER FALCON 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 [facility] Start: 12-30-2021 End: 01-13-2022 Evaluation and management of inpatient DR KARL BARRERA MD [facility] Start: 11-23-2021 End: 11-23-2021 Subsequent hospital visit by physician Michoacano Weinstein MD Work Phone: [facility] Comment on above: CHRONIC HEADACHES Start: 02-09-2021 End: 02-09-2021 Subsequent hospital visit by physician Ammy Vicente MD Work Phone: [facility] General Surgery Comment on above: Arrived Start: 11-13-2020 ambulatory [facility] Facility:[facility] Start: 09-09-2020 ambulatory [facility] Facility:[facility] Procedures Date Procedure Procedure Detail Performing Clinician Start: 01-28-[address] Diana Salmeron MD Work Phone: Start: 01-22-2025 Serum inorganic phosphate measurement Dr. Diana Salmeron MD Work Phone: Start: 01-20-[address] Francesco Salmeron MD Work Phone: Start: 01-20-2025 Serum inorganic phosphate measurement Dr. Diana Salmeron MD Work Phone: Start: 11-20-2024 Serum inorganic phosphate measurement Dr. [...] on above: Performed By: #### MAG #### [place] [id number] Start: 06-19-[address] KARL BARRERA MD [...] DTaP,Tdap,Td Vaccine (2 - Td or Tdap) [facility] Start: 02-17-2025 Influenza vaccination [facility] Start: 01-14-2025 End: 01-14-2025 Patient encounter procedure 01/14/2025 9:15 AM EDT Office Visit Urology [address] [place] [address] Gayla Cline MD [address] [place], [place] [id number] WILL BE ON COTDr.Mooney referral for cysto Urology Comment on above: WILL BE ON COT, referral for c ysto Start: 11-08-2024 End: 11-08-2024 Patient encounter procedure 11/08/2024 8:15 AM EDT Office Visit Urology [address] [place] [address] Gayla Cline MD [address] [place] [address] referral for cysto Urology Comment on above: referral for cysto Start: 10-15-2024 End: 10-15-2024 [facility] Start: 07-02-2024 Cystourethroscopy CYSTO.PANENDO Procedures Routine Gross hematuria Expected: 07/02/2024 (Approximate) [facility] Comment on above: Expected: 07/02/2024 (Approximate) Start: 06-28-2024 End: 06-28-2024 Patient encounter procedure 06/28/2024 1:20 PM EST Appointment Cat Scan [address] [place] [address] Gross hematuria [R31.0] Cat Scan Comment on above: Gross hematuria [R31.0] Start: 06-25-2024 End: 09-24-2024 CREATININE BLD CREATININE BLD Lab Routine Screening for genitourinary condition Gross hematuria Expected: 06/25/2024 (Approximate), Expires: 09/24/2024 [facility] Comment on above: Expected: 06/25/2024 (Approximate), Expi res: 09/24/2024 Start: 06-25-2024 End: 07-19-2025 CT Kidney WO and W contrast IV CT UROGRAM WO/W IVCON Radiology Routine Gross hematuria Expected: 06/25/2024, Expires: 07/19/2025 [facility] Comment on above: Expected: 06/25/2024, Expires: Start: 06-19-2024 Advance Directive Discussion Advance Directive Discussion [facility] Start: 06-19-2024 Medicare Advantage Annual Wellness Visit Medicare Advantage Annual Wellness Visit [facility] Start: 02-18-2024 Covid-19 Vaccine ( season) Covid-19 Vaccine ( season) [facility] Start: 02-18-2024 Influenza vaccination Influenza Vaccine (#1) [facility] Start: 09-02-2023 Glaucoma screening Dilated Retinal Exam [facility] Start: 09-02-2023 Hepatitis C antibody, confirmatory test DILATED RETINAL EXAM [facility] Start: 08-13-2023 Hemoglobin A1c measurement HbA1C [facility] Start: 08-13-2023 Hemoglobin A1c/Hemoglobin.total in Blood HbA1C [facility] Start: 06-19-2023 Advance Directive Discussion Advance Directive Discussion [facility] Start: 02-17-2023 Influenza vaccination Influenza Vaccine (#1) [facility] Start: 02-15-2023 Hepatitis B screening URINE ALBUMIN:CREATININE RATIO [facility] Start: 12-17-2022 Patient discharge [facility] Start: 12-16-2022 Dietary regime [facility] Start: 12-16-2022 Catheterization of vein [facility] Start: 12-16-2022 Vital signs measurements [facility] Start: 12-15-2022 [facility] Start: 12-15-2022 Consultation [facility] Start: 12-14-2022 Admission procedure [facility] Start: 12-14-2022 Wound care [facility] Start: 12-14-2022 Consultation for treatment [facility] Start: 12-14-2022 Catheterization of vein [facility] Start: 12-14-2022 Following clinical pathway protocol [facility] Start: 12-14-2022 Admission procedure [facility] Start: 12-14-2022 Assessment of risk of venous thromboembolism [facility] Start: 12-14-2022 Care regimes management [facility] Start: 12-14-2022 Insertion of catheter into peripheral vein [facility] Start: 12-14-2022 Providing care according to standard [facility] Start: 12-14-2022 Provision of activity privileges [facility] Start: 12-14-2022 Fall prevention [facility] Start: 12-14-2022 Introduction of urinary catheter [facility] Start: 12-14-2022 Oxygen therapy [facility] Start: 12-14-2022 Referral to occupational therapist [facility] Start: 12-14-2022 Referral to service [facility] Start: 12-14-2022 Measuring intake and output [facility] Start: 12-14-2022 Referral to gastroenterology service [facility] Start: 12-14-2022 Referral to general surgeon [facility] Start: 12-14-2022 Inhalation therapy procedure [facility] Start: 12-14-2022 Patient referral to dietitian [facility] Start: 12-14-2022 End: 12-14-2022 [facility] Start: 10-11-2022 Hemoglobin A1c/Hemoglobin.total in Blood HBA1C [facility] Start: 08-07-2022 Covid-19 Vaccine (6 - Moderna series) Covid-19 Vaccine (6 - Moderna series) [facility] Start: 06-19-2022 ADVANCE DIRECTIVE DISCUSSION ADVANCE DIRECTIVE DISCUSSION [facility] Start: 06-19-2022 DEPRESSION ASSESSMENT DEPRESSION ASSESSMENT [facility] Start: 02-17-2022 Influenza vaccination INFLUENZA (Season Ended) [facility] Start: 06-19-2021 ADVANCE DIRECTIVE DISCUSSION ADVANCE DIRECTIVE DISCUSSION [facility] Start: 03-17-2021 End: 03-17-2021 Patient encounter procedure 03/17/2021 Office Visit Ophthalmology Ammy Vicente MD [address] [id number] [facility] Start: 02-17-2021 Influenza vaccination Flu vaccine (#1) [facility] Work Phone: Start: 02-17-2021 End: 02-17-2021 Patient encounter procedure 02/17/2021 Office Visit Ophthalmology Ammy Vicente MD [address] [id number] [facility] Start: 02-10-2021 End: 02-10-2021 Patient encounter procedure 02/10/2021 Office Visit Ophthalmology Ammy Vicente MD [address] [place] [id number] [phone] [facility] Start: 08-15-2020 Hemoglobin A1c/Hemoglobin.total in Blood HBA1C [facility] Start: 2016 RSV Vaccine (1 - 1-dose 75+ series) RSV Vaccine (1 - 1-dose 75+ series) [facility] Start: 2006 Pneumococcal 65+ years Vaccine (1 of 1 - PPSV23) Pneumococcal 65+ years Vaccine (1 of 1 - PPSV23) [facility] Work Phone: Start: 2001 Hepatitis B Vaccine (1 of 3 - Risk 3-dose series) Hepatitis B Vaccine (1 of 3 - Risk 3-dose series) [facility] Start: 1991 Shingles Vaccine (1 of 2) Shingles Vaccine (1 of 2) [facility] Work Phone: Start: 1991 SHINGRIX VACCINE (1 of 2) SHINGRIX VACCINE (1 of 2) [facility] Start: 1960 DTaP/Tdap/Td vaccine (1 - Tdap) DTaP/Tdap/Td vaccine (1 - Tdap) [facility] Work Phone: Start: 1960 Pneumococcal Vaccine: 50+ (1 of 2 - PCV) Pneumococcal Vaccine: 50+ (1 of 2 - PCV) [facility] Start: 1960 Urine microalbumin profile [facility] Start: 1959 ANNUAL PCP TEAM CHRONIC DISEASE VISIT ANNUAL PCP TEAM CHRONIC DISEASE VISIT [facility] Start: 1959 Anxiety Screening Anxiety Screening [facility] Start: 1959 BP CONTROLLED (<130/80) BP CONTROLLED (<130/80) [facility] Start: 1959 Depression Screening Depression Screening [facility] Start: 1959 Hepatitis B surface antibody level LDL CHOLESTEROL [facility] Start: 1953 Adult depression screening assessment DEPRESSION SCREENING [facility] Start: 1953 COVID-19 Vaccine (1) COVID-19 Vaccine (1) [facility] Work Phone: Start: 1951 3 comp foot exam completed DIABETIC FOOT EXAM [facility] Start: 1951 Diabetic foot examination Diabetic Foot Exam [facility] Start: 1951 Hepatitis B screening URINE ALBUMIN:CREATININE RATIO [facility] Start: 1951 Hepatitis C antibody, confirmatory test DILATED RETINAL EXAM [facility] Start: 1951 Lipid panel Lipid screen [facility] Work Phone: Start: 1947 Pneumococcal Vaccine: 65+ (1 - PCV) Pneumococcal Vaccine: 65+ (1 - PCV) [facility] Start: 1947 PNEUMOCOCCAL: 65+ (1 - PCV) PNEUMOCOCCAL: 65+ (1 - PCV) [facility] Start: 1946 COVID-19 VACCINE (#1) COVID-19 VACCINE (#1) [facility] Start: 1941 Creatinine measurement Creatinine monitoring [facility] Work Phone: Start: 1941 Hepatitis C screening Hepatitis C screen [facility] Work Phone: Start: 1941 Potassium monitoring Potassium monitoring [facility] Work Phone: Start: 1941 Thyroid stimulating hormone measurement TSH testing [facility] Work Phone: Bacteria identified in Urine by Culture [facility] Comment on above: Ordered: 06/18/2024 Bacteria identified in Urine by Culture BACTERIAL CULTURE, URINE Microbiology Routine Gross hematuria 10/01/2024 3:36 PM EDT [facility] Blood glucose - POCT [facility] Work Phone: Comment on above: As Needed until discontinued starting End: 02-09-2021 Creatinine [Mass/volume] in Serum or Plasma Creatinine, serum Lab STAT One Time for 1 Occurrences starting 02/09/2021 until 02/09/2021 [facility] Work Phone: Comment on above: One Time for 1 Occurrences starting 01/18 until 02/09/2021 CT Kidney WO and W contrast IV CT UROGRAM WO/W IVCON Radiology Routine Gross hematuria 06/28/2024 2:26 PM EST [facility] Work Phone: End: 11-03-2025 CT Kidney WO and W contrast IV CT UROGRAM WO/W IVCON Radiology Routine Gross hematuria 1 Occurrences starting 10/04/2024 until 11/03/2025 [facility] Work Phone: Comment on above: 1 Occurrences starting 10/04/2024 until 11/03/2025 Cystourethroscopy CYSTO.PANENDO Procedures Routine Gross hematuria Ordered: 10/01/2024 [facility] Comment on above: Ordered: 10/01/2024 CYTOLOGY NON-TELEPHONE SERVICE ADVISER Bee Jamar cruz Comment on above: Ordered: 06/18/2024 End: 02-09-2021 Intermittent pulse oximetry Pulse Oximetry Spot Check Respiratory Care Routine One Time for 1 Occurrences starting 02/09/2021 until 02/09/2021 [employer] Work Phone: Comment on above: One Time for 1 Occurrences starting 01/18 until 02/09/2021 Nasal Cannula Oxygen Nasal Cannu la Oxygen Respiratory Care Routine As Needed until discontinued starting 02/09/2021 [employer] Work Phone: Comment on above: As Needed until discontinued starting Nonrebreather mask oxygen Nonreb reather mask oxygen Respiratory Care Routine As Needed until discontinued starting 02/09/2021 [employer] Work Phone: Comment on above: As Needed until discontinued starting Oxygen therapy [[facility] Data Set] [employer] Work Phone: Comment on above: Daily until discontinued starting 2020 As Needed until disc ontinued starting 02/09/2021 Patient Education ED Eye Contusi on ED Head Injury (Adult) ED Skin Tear (Skin Avulsion) [facility] Work Phone: Patient referral [facility] Work Phone: POST VOID RESIDUAL POST VOID RES IDUAL Procedures Routine Gross hematuria Screening for genitourinary condition Ordered: 10/01/2024 [facility] Work Phone: Comment on above: Ordered: 10/01/2024 End: 02-09-2021 Potassium w/ Reflex to Magnesium Potassium w/ Reflex to Magnesium Lab Routine One Time for 1 Occurrences starting 02/09/2021 until 02/09/2021 [facility] Work Phone: Comment on above: One Time for 1 Occurrences starting 01/18 until 02/09/2021 End: 02-09-2021 , urine POCT , urine POCT Point of Care Testing Routine One Time for 1 Occurrences starting 02/09/2021 until 02/09/2021 [facility] Work Phone: Comment on above: One Time for 1 Occurrences starting 01/18 until 02/09/2021 End: 02-09-2021 Protime-INR Protime-INR Lab STAT One Time for 1 Occurrences starting 02/09/2021 until 02/09/2021 [employer] Work Phone: Comment on above: One Time for 1 Occurrences starting 01/18 until 02/09/2021 Spirometry panel Incentive arthur metry Respiratory Care Routine Q1H PRN until discontinued starting 02/09/2021 [facility] Work Phone: Comment on above: Q1H PRN until discontinued starting 01/18 UA DIP, URINE (POC) UA DIP, URIN E (POC) Lab Routine Screening for genitourinary condition Ordered: 06/18/2024 [facility] Work Phone: Comment on above: Ordered: 06/18/2024 Immunizations Immunization Date Immunization Notes Care Provider [facility] 10-15-2024 tetanus toxoid, reduced diphtheria toxoid, and acellular pertussis vaccine, adsorbed Dr. Diana Salmeron MD Work Phone: [facility] 03-19-2022 influenza virus vaccine, unspecified formulation Urology (History) [facility] 10-25-2021 Covid (Pfizer) Dr. Dexter Reyes Work Phone: [facility] 05-21-2021 influenza virus vaccine, unspecified formulation DR KARL BARRERA MD [facility] 05-21-2021 SARS-CoV-2 (COVID-19 ) mRNA-[address] KARL BARRERA MD [facility] 03-10-2021 influenza virus vaccine, unspecified formulation DR KARL BARRERA MD [facility] 10-13-2020 SARS-CoV-2 (COVID-19 ) mRNA-12[address] KARL BARRERA MD [facility] Comment on above: Result Comment: 2021: TPV3 09-15-2020 SARS-CoV-2 (COVID-19 ) mRNA-[address] KARL BARRERA MD [facility] Comment on above: Result Comment: 2021: TPV3 03-22-2020 influenza virus vaccine, unspecified formulation DR KARL BARRERA MD [facility] 02-18-2020 influenza virus vaccine, unspecified formulation DR KARL BARRERA MD [facility] 03-18-2019 influenza, injectabl e, quadrivalent, preservative free Dr. Diana Salmeron MD Work Phone: [facility] 03-18-2019 influenza, seasonal, injectable Dr. Dexter Reyes Work Phone: [facility] 03-04-2019 influenza virus vaccine, unspecified formulation DR KARL BARRERA MD [facility] 02-22-2017 influenza virus vaccine, unspecified formulation DR KARL BARRERA MD [facility] Payers Date Payer Category Payer Medicare (Managed Care) [facility] [id number] 2024 Self-pay [id number] 2020 Medicare [id number]. [id number] 2019 Private Health Insurance [id number]. [id number] 2019 Medicaid [id number]. 1.13.159.2. [id number] 2019 Medicaid [id number] 2015 Medicare [facility] [place] [facility] [id number] 2006 Medicare [id number]. 1.13.159.2. [id number] 2006 Medicare [id number] 1941 Unknown [id number] .0.1.905902.3.579.2. 594 1941 Unknown [id number] .0.1.495741.3.579.2. 594 1941 Unknown [id number] .840.1.458114.3.579.2. 594 1941 Unknown [id number] 2.840.1.266481.3.579.2. 627 1941 Unknown [id number] .0.1.194067.3.579.2. 651 Medicare [id number] Unknown [id number] 2.16.840.1.435753.3.579.2. 462 Unknown [id number] 2.16.840.1.660994.3.579.2. 462 Unknown [id number] 2.16.840.1.706534.3.579.2. 462 Unknown [id number] 2.16.840.1.996429.3.579.2. 462 Unknown [id number] 2.16.840.1.074754.3.579.2. 462 Unknown [id number] 2.16.840.1.339458.3.579.2. 462 Unknown [id number] 2.16.840.1.006806.3.579.2. 462 Unknown [id number] 2.16.840.1.017299.3.579.2. 462 Unknown [id number] 2.16840.1.867777.3.579.2. 462 Unknown [id number] 2.16.840.1.196768.3.579.2. 462 Unknown [id number] 2.16.840.1.373458.3.579.2. 462 Unknown [id number] 2.16.840.1.808538.3.579.2. 462 Unknown [id number] 2.16.840.1.583216.3.579.2. 462 Unknown [id number] 2.16.840.1.156205.3.579.2. 462 Unknown [id number] 2.16.840.1.135050.3.579.2. 462 Unknown [id number] 2.16.840.1.485101.3.579.2. 462 Unknown [id number] 2.16.840.1.287817.3.579.2. 462 Unknown [id number] 2.16.840.1.537684.3.579.2. 462 Unknown [id number] 2.16.840.1.789391.3.579.2. 462 Unknown [id number] 2.16.840.1.813639.3.579.2. 462 Unknown [id number] 2.16.840.1.902967.3.579.2. 462 Unknown [id number] 2.16.840.1.861619.3.579.2. 462 Unknown [id number] 2.16.840.1.069763.3.579.2. 462 Unknown [id number] 2.16.840.1.233768.3.579.2. 462 Unknown [id number] 2.16.840.1.471987.3.579.2. 462 Unknown [id number] 2.16840.1.500746.3.579.2. 462 Unknown [id number] 2.16840.1.728171.3.579.2. 462 Unknown [id number] 2.840.1.018960.3.579.2. 462 Unknown [id number] 2.16840.1.787982.3.579.2. 462 Unknown [id number] 2.840.1.745825.3.579.2. 462 Unknown [id number] 2.16840.1.194511.3.579.2. 462 Unknown [id number] 2.16840.1.331308.3.579.2. 462 Unknown [id number] 2.16840.1.162238.3.579.2. 462 Unknown [id number] 2.16840.1.779461.3.579.2. 462 Unknown [id number] 2.16840.1.212460.3.579.2. 462 Unknown [id number] 2.16840.1.152050.3.579.2. 462 Unknown [id number] 2.16.840.1.361744.3.579.2. 462 Unknown [id number] 2.16840.1.174487.3.579.2. 462 Unknown [id number] 2.16.840.1.171257.3.579.2. 462 Social History Date Type Detail Facility Start: 02-09-2021 End: 10-15-2024 Tobacco smoking status NHIS Former smoker [facility] Start: 02-09-2021 End: 01-14-2025 Alcohol intake Current drinker of alcohol (finding) [facility] Work Phone: Start: 02-02-2021 Alcohol Comment occassional ETOH use, not on a daily basis [facility] Work Phone: Start: 1940 Sex Assigned At Not on file [facility] Work Phone: Exposure to SARS-CoV -2 (event) Not sure [facility] Start: 12-14-2022 Tobacco smoking status [facility] Tobacco smoking consumption unknown [facility] Start: 05-15-2020 History SDOH Alcohol Frequency 2 [facility] Start: 05-15-2020 History SDOH Alcohol Std Drinks 1 [facility] Start: 12-10-2019 History SDOH Financial 4 [facility] Start: 1940 Sex Assigned At Male [facility] Start: 01-08-1960 End: 01-07-1990 History of tobacco use Current smoker [facility] Work Phone: Start: 01-08-1960 End: 01-07-1990 History of tobacco use Cigarette Smoker [facility] Work Phone: Start: 05-15-2020 End: 05-05-2023 Cigarettes smoked current (pack per day) - Reported 1 [facility] Work Phone: Start: 05-15-2020 End: 06-18-2024 Tobacco use and exposure Smokeless tobacco non-user [facility] Work Phone: Start: 09-05-2019 End: 05-05-2023 Tobacco Comment STOPPED 28 YEARS AGO [facility] Start: 09-05-2019 Alcohol Comment OCCASIONAL [facility] Start: 09-12-2019 Heavy [facility] Start: 09-12-2019 None [facility] Start: 11-23-2019 - [facility] Start: 12-18-2019 Non-smoker [facility] Start: 05-15-2020 End: 05-05-2023 Alcohol Use Disorder Identification Test - Consumption [AUDIT-C] [facility] Work Phone: How often to you hav e a drink containing alcohol? Monthly or less [facility] Work Phone: How many standard dr inks containing alcohol do you have on a typical day? 1 or 2 [facility] Work Phone: Frequency of Binge Drinking Not on file [facility] How hard is it for y ou to pay for the very basics like food, housing, medical care, and heating Not very hard [facility] (I/We) worried wheth er (my/our) food would run out before (I/we) got money to buy more. DK or Refused [facility] Start: 09-20-2024 End: 10-16-2024 Sex Male (finding) [facility] Medical Equipment Procedure Code Equipment Code Equipment Origin al Text Equipment Identifier Dates ERCP (endoscopic retrograde cholangiopancreatog lalit) ([id number]) Polymeric biliary stent, non-bioabsorbable [id number] FDA Start: 12-15-2022 Patch Xenosure Bovine Pericardial Tissue 8x.8cm Vascular Sterile - [id number] Start: 09-02-2019 Goals Date Patient Goal Desired Activity /State Functional Status Date Assessment Result Facility 12-17-2022 Functional status Bedrest [facility] Work Phone: 12-16-2022 Functional status Tolerates Activity Fair [facility] Work Phone: 01-13-2022 Functional Status Room check performed [facility] 01-13-2022 Functional Status [facility] 01-13-2022 Functional Status [facility] 01-13-2022 Functional Status [facility] 01-13-2022 Functional Status [facility] 01-12-2022 Functional Status [facility] 01-12-2022 Functional Status [facility] 01-12-2022 Functional [facility]-12[facility] 01-12-2022 Functional Status Bed Bath Refused [facility] 01-12-2022 Functional Status bilateral knee high [facility] 01-12-2022 Functional Status padded oxygen tubing [facility] 01-11-2022 Functional Status Linen Change Done [facility] 01-11-2022 Functional Status [facility] 01-11-2022 Functional Status [facility] 01-10-2022 Functional Status [facility] 01-10-2022 Functional Status [facility] 01-10-2022 Functional Status Shampoo/Body w abdirashid (no rinse), CHG bath [facility] 01-10-2022 Functional Status [facility] 01-09-2022 Functional Status [facility] 01-09-2022 Functional Status [facility] 01-08-2022 Functional Status [facility] 01-07-2022 Functional Status Transfer Bed t o/from Chair Total 2 [facility] 01-07-2022 Functional Status Supervised 3 [facility] 01-07-2022 Functional Status Hair Care Maximum paola tance [facility] 01-07-2022 Functional Status Fluid Restriction Maint ained [facility] 01-06-2022 Functional Status [facility] 01-05-2022 Functional Status Special Call D evice Unable to use call device [facility] 01-05-2022 Functional Status [facility] 01-05-2022 Functional Status [facility] 01-05-2022 Functional Status Patient Identi fied Identification band, Verbal [facility] 01-04-2022 Functional Status Skin Care Done [facility] 01-03-2022 Functional Status [facility] 01-01-2022 Functional Status [facility] 12-30-2021 Functional Status Living Situati on Senior Care Unit [facility] 12-30-2021 Functional Status Sensory Defici ts Blind, left eye, Blind, right eye [facility] 12-11-2019 Are you deaf, or do you have serious difficulty hearing No 12/11/2019 4:18 PM Josefa Graves RN No [facility] 12-11-2019 Are you blind, or do you have serious difficulty seeing, even when wearing glasses No 12/11/2019 4:18 PM EDT Josefa Mason RN No [facility] 12-11-2019 Do you have serious difficulty walking or climbing stairs Yes 12/11/2019 4:18 PM EDT Josefa Mason RN Yes [facility] 12-11-2019 Do you have difficul ty dressing or bathing No 12/11/2019 4:18 PM EDT Josefa Mason RN No [facility] 12-11-2019 Because of a physica l, mental, or emotional condition, do you have difficulty doing errands alone such as visiting a physician's office or shopping Yes 12/11/2019 4:18 PM EDT Josefa Mason RN Yes [facility] Mental Status Date Assessment Result Facility 12-17-2022 Cognitive function Voice/Name [facility] Work Phone: 01-13-2022 Mental Status Orientation Oriented x 4 [facility] 01-13-2022 Mental Status [facility] 01-12-2022 Mental Status [facility] 01-12-2022 Mental Status [facility] 01-11-2022 Mental Status [facility] 12-11-2019 Because of a physica l, mental, or emotional condition, do you have serious difficulty concentrating, remembering, or making decisions No 12/11/2019 4:18 PM EDT Josefa Mason RN No [facility] Clinical Notes 02-09-2021 to 01-14-2025 Gayla Cline MD - 01/14/2025 10:45 AM Gayla Banuelos MD - 01/14/2025 10:44 AM Gayla Banuelos MD - 01/14/2025 10:44 AM EDT Note Date & Type Note Facility 01-14-2025 Note HNO ID: [id number] Author: GAYLA CLINE MD Service: ? Author [...] (Patient not taking: Reported on 01/14/2025) vit C,F-Hn-izfor-lutein-zeaxan (PRESERVISION AREDS-2) 250-90-40-1 mg Take 1 Each [...] daily. (Patient n (more content not included)... [facility] 01-14-2025 History of Presen t illness Narrative [...] (Patient not taking: Reported on 01/14/2025) vit C,K-Aj-fxlzl-lutein-zeaxan (PRESERVISION AREDS-2) 250-90-40-1 mg Take 1 Each [...] kidney disease no dialysis. Dr. Montgomery in [place] Congestive heart failure (HCC) Diabetes mellitus (HCC) [...] Gayla Cline MD documented in this encounter [facility] 01-14-2025 Note HNO ID: [id number] Author: GAYLA CLINE MD Service: ? Author Type: Physician Type: Procedures Filed: 01/14/2025 10:48 Note Text: CYSTOSCOPY PROCEDURE NOTE : Elizabeth Modi is a 84 year old male who is here for cystoscopy PRE-OP/PRE-PROCEDURE DIAGNOSIS: h/o gross henaturia POST-OP/POST-PROCEDURE DIAGNOSIS: same SURGERY/PROCEDURE(S): Cystoscopy Pt ID verified with patient: Yes Procedure verified with patient: Yes Procedure confirmed with physician and customer support analyst: Yes UNIVERSAL PROTOCOL / SAFETY CHECKLIST Procedure [...] meaning may be extrapolated by contextual derivation. [facility] 01-14-2025 Procedure note CYSTOSCOPY PROCEDURE NOTE : Elizabeth Modi is a 84 year old male who is here for cystoscopy PRE-OP/PRE-PROCEDURE DIAGNOSIS: h/o gross henaturia POST-OP/POST-PROCEDURE DIAGNOSIS: same SURGERY/PROCEDURE(S): Cystoscopy Pt ID verified with patient: Yes Procedure verified with patient: Yes Procedure confirmed with physician and customer support analyst: Yes UNIVERSAL PROTOCOL / SAFETY CHECKLIST Procedure [...] meaning may be extrapolated by contextual derivation. [facility] 01-14-2025 Procedure note CYSTOSCOPY PROCEDURE NOTE : Elizabeth Modi is a 84 year old male who is here for cystoscopy PRE-OP/PRE-PROCEDURE DIAGNOSIS: h/o gross henaturia POST-OP/POST-PROCEDURE DIAGNOSIS: same SURGERY/PROCEDURE(S): Cystoscopy Pt ID verified with patient: Yes Procedure verified with patient: Yes Procedure confirmed with physician and customer support analyst: Yes UNIVERSAL PROTOCOL / SAFETY CHECKLIST Procedure [...] by contextual derivation. 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 Tetanus Immunization: Unknown [facility] Medical History History of echocardiogram History of [...] pulmonary disease) Obesity Atherosclerotic heart disease of wainwright coronary artery without angina pectoris Paroxysmal atrial fibrillation 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 Essential hypertension Tinea unguium Vitamin D deficiency Edentulous Tobacco dependence in remission Hypothyroidism Diabetes mellitus type 2, uncontrolled Home Medications ?Medication ?Instructions ?Recorded ?Last Taken ?Type levothyroxine 50 mcg tablet 50 mcg PO DAILY 03/16/22 1 08/07/22 History apixaban 2.5 mg tablet [...] Care Provider] - 5-7 Days Print Language: Bahamian Disposition Disposition: Home, Self Care What to do if you have Problems For any increased pain, shortness of breath, bleeding, nausea or vomiting, chestpain, or any unexpected problems, contact your Primary Care Provider. Call [facility] ([phone]) or report tothe closest Emergency Room. Call 911 if necessary. 10/15/24 5595 Cosigner Signature (if applicable): CC: Dr. Diana Salmeron MD ~ Signed [facility]04-29-2025 Radiology Diagnostic study note [facility] Imaging Services [address] [place], [place] [id number] Elbow min 3 Views MR#: [id number] Acct: [id number] Name: ELIZABETH MODI Rep #: [id number] : 1940 M 84 From: Franko Kapadia MD PCP: Dr. Diana Salmeron MD Status: REG ER Study:Elbow min 3 Views Date of Exam: Exam# [id number] Ordering Dr: Jesse Angel DO EXAM: Left elbow CLINICAL HISTORY: Injury, pain COMPARISON: None TECHNIQUE: Three views FINDINGS: No acute fracture or dislocation. Moderate joint space narrowing and osteophyte formation consistent with moderatearthrosis. Normal soft tissues. RAD/Elbow min 3 Views IMPRESSION: No acute fracture or dislocation. Moderate arthrosis. Reading Location: [facility] CC: Dr. Diana Salmeron MD; Dr. Jesse Angel DO ~ Pharmacy Informaticist: Signed [facility]04-29-2025 Radiology Diagnostic study note [facility] Imaging Services [address] [place] [address] Orb Sella Post Fossa Ear w/o MR#: [id number] Acct: [id number] Name: ELIZABETH MODI Rep #: [id number] : 1940 M 84 From: Franko Kapadia MD PCP: Dr. Diana Salmeron MD Status: REG ER Study:Orb Sella Post Fossa Ear w/o Date of Ex am: 10/15/24 Exam# [id number] Ordering Dr: Jesse Angel DO PROCEDURE: ORB [...] ORBITAL FRACTURE OR RETROBULBAR HEMATOMA. Reading Location: [facility] CC: Dr. Diana Salmeron MD; Dr. Jesse Angel DO ~ Pharmacy Informaticist: Signed [facility]04-29-2025 Discharge summary Author Jesse Angel [facility] Note Date/Time October 15, 2024 11: 45pm [facility] Medical Records Department [address] [place] [address] Emergency Department Summary 10/15/24 MR#: [id number] Acct: [id number] Name: ELIZABETH MODI Rep #:[id number] : 1940 84 From: Jesse Griffith PCP: [...] of his last tetanus. 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 Call [facility] ([phone]) or report to the closest Emergency Room. Call 911 if necessary. 10/15/242344 <Electronically signed by Jesse Angel DO> Cosigner Signature (if applicable): CC: Dr. Diana Salmeron MD ~ Signed [facility] Work Phone: 1(601) 402-112804-15-2025 Telephone encounter Note* Telephone Encounter - Yue Huffman - 10/01/2024 2:11 PM EDT May you please submit another order for for Urogram CT. When last appt was canceled the order was not removed from the appt. Sorry for the inconvenience. Marivel PSS [place] [address]-15-2025 Miscellaneous Notes* Telephone Encounter - Yue Su - 10/01/2024 2:11 PM EDT May you please submit another order for for Urogram CT. When last appt was canceled the order was not removed from the appt. Sorry for the inconvenience. Marivel PSS documented in this encounterMadison Health04-15-2025 Instructions* Patient Instructions* Nikolai Connor PA-C - 10/01/2024 1:46 PM EDT documented in this encounterMadison Health04-15-2025 NoteHNO ID: [id number] Author: NIKOLAI CONNOR PA-C Service: ? Author Type: Physician Student Driving Instructor Type: Progress Notes Filed: 10/01/2024 14:58 Note Text: [facility] [place] [facility] PATIENT CLINIC NOTE (M) Some elements copied [...] (ADULTS MULTIVITAMIN ORAL) Take by mouth. vit C,S-Ev-thynw-lutein-zeaxan (PRESERVISION AREDS-2) 250-90-40-1 mg Take 1 Each [...] kidney disease no dialysis. Dr. Montgomery in [place] Congestive (more content not included)...[facility]04-15-2025 History of Present illness Narrative* Nikolai Connor PA-C - 10/01/2024 1:42 PM EDT Images from the original note were not included. [facility] [place] [facility] PATIENT CLINIC NOTE (M) Some elements copied [...] (ADULTS MULTIVITAMIN ORAL) Take by mouth. vit C,P-Hx-whdue-lutein-zeaxan (PRESERVISION AREDS-2) 250-90-40-1 mg Take 1 Each [...] kidney disease no dialysis. Dr. Montgomery in [place] Congestive heart failure (HCC) DM (diabetes mellitus) [...] cyanosis, or edema The patient or authorized new accounts representative has verbally agreed to proceed with [...] cystoscopy (bladder scope) with Dr. Hawk at [facility] has been placed; please turn in [...] Plan: Appointment with Nikolai. documented in this encounterMadison Health04-15-2025 NoteHNO ID: [id number] Author: LUKE TAYLOR LPN Service: ? Author Type: LICENSED NURSE Type: Progress Notes Filed: 10/01/2024 14:58 Note Text: Verified name and date of . CC Post Void Residual HPI: Elizabeth Modi is a 84 year old male. The patient is here now for an appointment with JAJA Stewart, MT, PA-COV. Procedure: Explained procedure to patient and verbalizes understanding. Performed a PVR. Patient urinated and instructed to empty bladder as much as possible just prior to having PVR done using bladder ultrasound scanner. Results of scan: 163 mL The patient tolerated the procedure well. Plan: Appointment with Nikolai.[facility]03-21-2025 Evaluation note* Diagnosis Onset Date Resolution Status Admit Date Fecal incontinence acute September 06, 2024 1:38pm S/P ERCP chronic September 06 1:38pm [facility] Work Phone: 1(858) 394-630603-21-2025 Evaluation note* Diagnosis Onset Date Resolution Status Admit Date Fecal incontinence acute September 06, 2024 1:38pm S/P ERCP chronic September 06 1:38pm Atherosclerotic heart diseas e of [place] coronary artery without angina pectoris chronic October 16, 2024 7:59am Essential hypertension chronic Ap 2024 7:59am Hyperlipidemia chronic September 7:59am Paroxysmal atrial fibrillation chron ic October 16, 2024 7:59am [facility] Work Phone: 1(773) 446-761901-21-2025 Telephone encounter Note* Telephone Encounter - Luke Taylor LPN - 07/09/2024 3:50 PM EST Letter sent to patient that we have not been able to contact Angelic. Luke Taylor LPN [facility]01-21-2025 Miscellaneous Notes* Telephone Encounter - Luke Taylor LPN - 07/09/2024 3:50 PM EST Letter sent to patient that we have not been able to contact Desiree. Luke Taylor LPN * Telephone Encounter - [...] JAJA Stewart, TU DIAZ documented in this encounterMadison Health01-21-2025 Telephone encounter Note * Telephone Encounter - Luke Taylor LPN - 07/09/2024 3:47 PM EST Called Angelic. No answer- left message to call clinic. Luke Taylor LPN [facility]01-17-2025 Telephone encounter Note* Telephone Encounter - Luke Taylor LPN - 07/05/2024 4:27 PM EST Called Angelic. No answer- left message to call clinic. Luke Taylor LPN [facility]01-14-2025 Telephone encounter Note* Telephone Encounter - Nayeli Dominguez - 07/02/2024 2:24 PM EST Left pt's daughter message to call & schedule cysto with Dr. Prakash Connor. Delmi [facility]01-14-2025 Miscellaneous Notes* Telephone Encounter - Nayeli Dominguez - 07/02/2024 2:24 PM EST Left pt's daughter message to call & schedule cysto with Dr. Prakash Connor. Delmi documented in this encounterMadison Health01-10-2025 History of Present illness Narrative* Luke Whitmore, [...] PATIENT PRESENTS WITH AN IMPLANTABLE OR ATTACHED REBEAMER: No ALLERGIES: Reviewed and unchanged CONTRAST ALLERGY: [...] 2024 TIME: 1:57 PM documented in this encounterMadison Health01-10-2025 NoteHNO ID: [id number] Author: LUKE WHITMORE RT (R) Service: ? Author Type: Heat Seal Operator Type: Progress Notes Filed: 06/28/2024 13:57 Note [...] PATIENT PRESENTS WITH AN IMPLANTABLE OR ATTACHED REBEAMER: No ALLERGIES: Reviewed and unchanged CONTRAST ALLERGY: [...] Modi DATE: June 28, 2024 TIME: 1:57 [facility]01-07-2025 Telephone encounter Note* Telephone Encounter - Susan Joy MA - 06/25/2024 8:46 AM EST LM for Angelic to contact office to inform. Susan Joy MA [facility]01-03-2025 Telephone encounter Note* Telephone Encounter - Anaid Payne MA - 06/21/2024 4:28 PM EST ----- Message from Nikolai Connor PA-C sent at 06/21/2024 3:54 PM EST ----- No infection in the urine No cancer cells in urine, please continue the rest of the testing JAJA Stewart, MTTU [facility]12-31-2024 NoteHNO ID: [id number] Author: NIKOLAI CONNOR PA-C Service: ? Author Type: Physician Student Driving Instructor Type: Progress Notes Filed: 06/18/2024 16:05 Note Text: [facility] [place] [facility] NEW PATIENT CLINIC NOTE SERVICE DATE: June 18, 2024 NAME: Elizabeth Modi CHIEF COMPLAINT: Hematuria HISTORY OF PRESENT ILLNESS: Elizabeth Modi is a 83 year old male an new patient here for The patient reports Hematuria with a few episodes of hematuria Will get Urine sample today for culture and cytology Schedule Cystoscopy at [place] And CT Urogram at [place] We discussed the need for full hematuria [...] (ADULTS MULTIVITAMIN ORAL) Take by mouth. vit C,X-Ky-ggkxe-lutein-zeaxan (PRESERVISION AREDS-2) 250-90-40-1 mg Take 1 Each [...] kidney disease no dialysis. Dr. Montgomery in [place] Congestive heart failure (HCC) DM (diabetes mellitus) (HCC) PCP follows Dyslipidemia Heart attack (HCC) HTN (hypertension) Hypercholesterolemia Hypothyroidism PVD (peripheral vascular disease) (HCC) Renal mass (more content not included)...[facility]12-31-2024 History of Present illness Narrative* Nikolai Connor PA-C - 06/18/2024 1:26 PM EST Images from the original note were not included. [facility] [place] [facility] NEW PATIENT CLINIC NOTE SERVICE DATE: June 18, 2024 NAME: Elizabeth Modi CHIEF COMPLAINT: Hematuria HISTORY OF PRESENT ILLNESS: Elizabeth Modi is a 83 year old male an new patient here for The patient reports Hematuria with a few episodes of hematuria Will get Urine sample today for culture and cytology Schedule Cystoscopy at [place] And CT Urogram at [place] We discussed the need for full hematuria [...] be provided with radiology test) CT Urogram / Inject, intravenously, once for 1 dose.No IV [...] (ADULTS MULTIVITAMIN ORAL) Take by mouth. vit C,G-Vb-pqkhp-lutein-zeaxan (PRESERVISION AREDS-2) 250-90-40-1 mg Take 1 Each [...] kidney disease no dialysis. Dr. Montgomery in [place] Congestive heart failure (HCC) DM (diabetes mellitus) [...] JAJA Stewart MT, PA-C documented in this encounterMadison Health12-19-2024 Evaluation note* Diagnosis Onset Date Resolution Status Admit Date Fecal incontinence acute Decemb 2023 3:30pm S/P ERCP chronic June 06, 2024 3:30pm Fecal incontinence acute September 06, 2024 1:38pm S/P ERCP chronic September 06 1:38pm [facility] Work Phone: 1(514) 332-163602-18-2024 Note. MICRO - Microbiology PROCEDURE: Blood Culture [...] Locations *1: This test was performed at: [address], [address] [place] [address] ([place])08-04-2023 Note. MICRO - Microbiology PROCEDURE: Blood Culture [...] Locations *1: This test was performed at: [address], [address] , [facility] ([place])04-16-2023 Note. MICRO - Microbiology PROCEDURE: Culture Wound [...] Locations *1: This test was performed at: [facility], [address] [place] [address], [address] , [facility] ([place])03-27-2023 Miscellaneous Notes* Telephone Encounter - Ammy Bradshaw - 03/27/2023 1:44 PM EDT Referral received LVM for [place] to call and schedule appt. Ammy Bradshaw documented in this encounterMadison Health03-21-2023 Miscellaneous Notes* Telephone Encounter - Quan Iraheta DO - 09/06/2022 5:03 PM EDT Spoke with patient's nurse at [facility]. Counseled to taper prednisone by 2.5mg [...] agreement with the plan. documented in this encounterMadison Health03-21-2023 Miscellaneous Notes* Telephone Encounter - Quan Iraheta DO - 09/06/2022 12:47 PM EDT Attempted to speak with a provider for Mr. Modi at [place] to social services counselor prednisone taper of 2.5mg q week based upon rheumatology and ophthalmology evaluation not c/w GCA. Phone rang without answer x 2. Will attempt to call again this afternoon. documented in this encounterMadison Health03-16-2023 History of Present illness Narrative* Terence Phelps MD - 09/01/2022 2:08 PM EDT [facility] - Referred by Dr. 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 Eating Habits- No raw meat, not vegan [...] assessed for cataract surgery at [facility] Age related macular degeneration - Smoking history: [...] 01, 2022 3:05 PM documented in this encounterMadison Health03-16-2023 Instructions* Patient Instructions* Shana Delgado MD - 09/01/2022 10:54 AM EDT Labs on the first floor today Eye exam today in [facility] Continue prednisone dose as is pending labs and eye evaluation documented in this encounterMadison Health03-16-2023 History of Present illness Narrative* Shana Delgado [...] vascular disease s/p bilateral BKA, CKD, and MA s/p CABG who presents for evaluation of [...] muscle aches or pains Vascular surgery at [facility]: Left temporal artery biopsy 12/24/2021 A. [...] many vessels Eye doctor Dr. Lucas at [place] [facility] sent him to [facility] for GCA evaluation [phone], Currently on prednisone 10mg daily since 02/28/2022 [...] kidney disease no dialysis. Dr. 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 steroids (E55.9) Vitamin D deficiency Elizabeth Modi is a very pleasant 82 yo male with a past medical history notable for bilateral cataracts, long-standing type 2 diabetes, tobacco use disorder (quit ), peripheral vascular disease s/p bilateral BKA, CKD, hearing loss, and MA s/p CABG who presents for evaluation of [...] Zack Iraheta DO PGY5 Rheumatology Fellow Pager [phone] The above patient was seen and examined [...] arteritis Shana Burton MD documented in this encounterMadison Health08-01-2022 Note ORIGINAL EXAMINATION: TWO XRAY VIEWS OF [...] Sign Date: 01/17/2022 11:59:11 PM Ordering Provider: [facility]08-01-2022 Note ORIGINAL EXAMINATION: TWO XRAY VIEWS OF [...] Sign Date: 01/17/2022 11:59:11 PM Ordering Provider: [facility]07-28-2022 Note Discharge Instructions Thank you for allowing [...] Op 01/17/2022 01:00 PM EDT HUNTER FALCON APRN-GURWINDER [facility] Cardiothoracic Surgery [facility] Hospital Follow Up 02/15/2022 10:00 AM EDT [facility] Heart Vascular [facility] Follow Up Appointments Follow Up with KARL HIDALGO MD When 02/15/2022 10:00 AM EDT Where: [address] [place] [address] [place] [address]- Follow Up with HUNTER FALCON APRN-GURWINDER When 01/17/2022 01:30 PM EDT Why: please obtain a CXR 1 hour prior to your appt. Where: [address] [facility] [place] [address]- Follow Up with Discharge to [facility] LOC [phone] When Within 1-2 days Follow Up with Cardiac Rehab- [facility] When Why: The Cardiac Rehab department will call you to schedule you for phase 2. We left you a brochurewith information about cardiac rehab. If you have any questions please call [phone]. Where: [facility] [address] [place] [address]- The Following Activity and Diet Have Been [...] surgeon and have chest x-ray done at [facility]., 01/13/22 10:45:00 EDT Other Therapies [...] to receive it can visit one of [facility] vaccine clinics. There are many vaccine clinic locations within the [facility]. For locations and available times, please visit [email or web address] It is important to note that some COVID mobile vaccine clinics are held outdoors and may be canceled in rainy or stormy conditions. To learn more about pediatric vaccinations (ages 5-11), we invite you to visit the [facility] webpage. [email or web address] [email or web address].htmlTo learn more about the COVID-19 vaccine, we invite you to visit the [facility] website for a list of frequently asked questions. [email or web address] _[email or web address]-Questions.pdf [facility] Access Instructions: Stay connected with your healthcare team and access your personal medical information anytime with the [facility] Patient Portal.If you would like a full copy of your medical records, please contact the [facility] Medical Records Department, Monday through Monday between 8a.m. and 4:30p.m. Please follow the directions below to access the portal: 1.Access the email account you provided upon registration to the [facility].2.Look for an invitation email from [facility].3.Open the email and access the invitation link: Accept Invitation to [facility]4.Fill in the required rios to create your account. Sign into [email or web address] with your username and password that you [...] you will allow to register on the [facility] Patient Portal for access to your information. You can also access the [facility] Patient Portal on the NI. Simply click on "Health Records" under "HealthData" and then click on the Patient Engagement Systems logo. HOW TO SAFELY DISPOSE OF PRESCRIPTION [...] Call your local pharmacy or go to http://bit.lata/0W8Bf0d to find one close to you.3.Make use of household items: Use cat litter or old coffee grounds to dispose medications if other options arenot available. Mix your drugs with these household products, seal them in an airtight container andthrow it into the garbage. Call [facility]: [phone] to be sure your drugs can be [...] that I should contact my do ctor. Patient/Criminalist Signature: Date/Time: Relationship to Patient: Witness Name/Signature: Date/Time: [facility] [id number] Note ORIGINAL EXAMINATION: ONE XRAY VIEW OF [...] 01/13/2022 6:27:59 AM Ordering Provider: YIMI NEWELL [facility] [id number] Note ORIGINAL EXAMINATION: ONE XRAY VIEW OF [...] Sign Date: 01/13/2022 6:27:59 AM Ordering Provider: [facility]07-27-2022 Note ORIGINAL EXAMINATION: ONE XRAY VIEW OF [...] Date: 01/12/2022 7:32:39 PM [facility]ing [facility] Note ORIGINAL EXAMINATION: ONE XRAY VIEW [...] Date: 01/12/2022 7:32:39 PM Ordering Provider: YIMI TORRESNewark [id number] Note Date of Service 01/12/2022 Temporary A and V pacer wires discontinued. Patient tolerated well. Patient instructed to remain bedrest for 1 hour. Digitally Signed by YIMI NEWELL on 01/12/2022 05:06 PM [facility] [id number] Note Date of Service 01/12/2022 Chief Complaint [...] cell arteritis on prednisone. He resides at [facility]. He presented on 12/30/2021 with sudden onset of altered mental status and shortness of breath. Troponin 3577. Creatinine elevated 2.3. He was transferred to [facility] for fur ther evaluation. Echocardiogram completed [...] rhythm in the 60s. Transfer to stepdown. [facility] endocrinology following for blood sugar management. POD [...] Central venous access: Left subclavian triple-lumen Disposition: [place] Weight Current Weight Dosing Weight: 81.5 [...] 7. Diabetes Hgb A1c 8.4% Followed by [facility]. Glucoses ranging 69-1 33. 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 He resides at [facility]. He presented on 12/30/2021 with sudden onset of altered mental status and shortness of breath. Troponin 3577. Creatinine elevated 2.3. He was transferred to [facility] for fur ther evaluation. Echocardiogram completed [...] sinus rhythm in the 60s. Transfer to [facility]. [facility] endocrinology following for blood sugar management. POD [...] by PALAK NORMAN on 01/11/2022 11:18 AM [facility] [id number] Endocrinology Progress note Date of Service 01/11/22 Chief Complaint DM2; hypothyroidism Subjective Chart reviewed. Overnight events and plan of care d/w patient. Patient reports increased weakness, fatigue. BP is up this AM as well. CT reviewed, shows small r thyroid nodule. Objective Vitals and Measurements T: 36.5 C (Oral) TMIN: 36.5 C (Oral) TMAX: 37.0 C (Oral) HR: 64(Monitored) RR: 18 BP: 159/68 SpO2:94% WT: 102 kg Intake and Output 7AM [...] Weinstein on 12/24/2021-on prednisone. [facility] He presented to [facility] on December 30, 2021 due to a sudden onset of alteredmental status and shortness of breath. At [facility], he was noted to have acute kidney injury with creatinine 2.3 and elevated troponin at 3577. EKG revealed normal sinus rhythm without evidenceof ST elevation or depression. Negative for COVID-19 at [facility]. He was transferred to [facility] for further evaluation. Echocardiogram on December 30, 2021 revealed an EF of 45 to 50% and mild MR. 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 Cardiothoracic surgery was consulted for possible surgical myocardial vascularization. 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 Endocrine consult placed by [facility] for diabetic management. Longstanding type II diabetic with A1c of 8.4%. Currently residing at [facility] with orders in place for Humalog 32 [...] 10 units qhs, metformin 500 twice daily, Exeekjfnr47ca qd and a 0-10 sliding scale with [...] by CASPER MURRY on 01/11/2022 11:35 AM [facility] [id number] Note ORIGINAL EXAMINATION: CT OF THE CHEST [...] Sign Date: 01/10/2022 4:43:27 PM Ordering Provider: [facility]07-25-2022 Endocrinology Progress note Date of Service 01/10/22 [...] Weinstein on 12/24/2021-on prednisone. He resides at [facility] past 3 months. He presented to [facility] on December 30, 2021 due to a sudden onset of alteredmental status and shortness of breath. At [facility], he was noted to have acute kidney injury with creatinine 2.3 and elevated troponin at 3577. EKG revealed normal sinus rhythm without evidenceof ST elevation or depression. Negative for COVID-19 at [facility]. He was transferred to [facility] for further evaluation. Echocardiogram on December 30, 2021 revealed an EF of 45 to 50% and mild MR. 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 Cardiothoracic surgery was consulted for possible surgical myocardial vascularization. 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 Endocrine consult placed by [facility] for diabetic management. Longstanding type II diabetic with A1c of 8.4%. Currently residing at [facility] with orders in place for Humalog 32 [...] by CASPER MURRY on 01/10/2022 04:44 PM [facility] [id number] Note ORIGINAL EXAMINATION: CT OF THE CHEST [...] Sign Date: 01/10/2022 4:43:27 PM Ordering Provider: [facility]07-25-2022 Note Date of Service 01/10/2022 Chief Complaint [...] cell arteritis on prednisone. He resides at [facility]. He presented on 12/30/2021 with sudden onset of altered mental status and shortness of breath. Troponin 3577. Creatinine elevated 2.3. He was transferred to [facility] for further evaluation. Echocardiogram completed showing [...] by NICHOLE RODRIGUEZ on 01/10/2022 08:37 AM [facility] [id number] Note Date of Service 01/09/2022 Repeat INR 6.3. Aquamephyton 10 mg SQ x1. Repeat INR in 4 hours. Digitally Signed by KASSIDY SHANKAR on 01/09/2022 02:03 PM [facility] [id number] Endocrinology Progress note Date of Service 01/09/22 [...] Weinstein on 12/24/2021-on prednisone. [facility] He presented to [facility] on December 30, 2021 due to a sudden onset of alteredmental status and shortness of breath. At [facility], he was noted to have acute kidney injury with creatinine 2.3 and elevated troponin at 3577. EKG revealed normal sinus rhythm without evidenceof ST elevation or depression. Negative for COVID-19 at [facility]. He was transferred to [facility] for further evaluation. Echocardiogram on December 30, 2021 revealed an EF of 45 to 50% and mild MR. 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 Cardiothoracic surgery was consulted for possible surgical myocardial vascularization. 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 Endocrine consult placed by [facility] for diabetic management. Longstanding type II diabetic with A1c of 8.4%. 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 He resides at [facility]. He presented on 12/30/2021 with sudden onset ofaltered mental status and shortness of breath. Troponin 3577. Creatinine elevated 2.3. He was transferred [facility] for further evaluation. Echocardiogram completed showing [...] Continue Central Line: For IV access Disposition: [place] Weight Current Weight Dosing Weight: 81.5 [...] baseline, plan follow-up with Dr. Montgomery from [place] at discharge currently NSR rate 60, Coumadin on hold secondary to elevated INR 4.8. 5. CKD (chronic kidney disease), stage III 6. AF (paroxysmal atrial fibrillation) Currently NSR rate 60, Coumadin on hold secondary to elevated INR 4.8.Repeat INR at noon. On amiodarone. Home amiodarone and Eliquis were both discontinued in August 2021 7. Diabetes Hgb A1c 8.4% Glucose 68-177, [facility] endocrinology following 8. HTN (hypertension) Blood [...] by KASSIDY SHANKAR on 01/09/2022 11:51 AM [facility]Lhlnbxyh19-39-9125 Note ORIGINAL EXAMINATION: TWO XRAY VIEWS OF [...] Sign Date: 01/09/2022 7:51:53 AM Ordering Provider: [facility]07[facility]24[facility] Note ORIGINAL EXAMINATION: TWO XRAY VIEWS OF [...] Sign Date: 01/09/2022 7:51:53 AM [facility] End[facility]inology Progress note Date of Service [...] Glucose, Capillary 01/08/2022 16:28:00 EDT 132 mg/dL SD 82-115 Glucose Testing Blood Glucose, Capillary 01/08/2022 11:29:00 EDT 177 mg/dL HI 82-115 Y Glucose Testing Blood Glucose, Capillary 01/08/2022 07:10:00 EDT 141 mg/dL HI 82-115 Glucose Testing Glucose Level 01/08/2022 04:20:00 EDT 145 mg/dL HI 82-115 Assessment/Plan 1. CAD (coronary [...] Weinstein on 12/24/2021-on prednisone. He resides at [facility] past 3 months. He presented to [facility] on December 30, 2021 due to a sudden onset of alteredmental status and shortness of breath. At [facility], he was noted to have acute kidney injury with creatinine 2.3 and elevated troponin at 3577. EKG revealed normal sinus rhythm without evidenceof ST elevation or depression. Negative for COVID-19 at [facility]. He was transferred to [facility] for further evaluation. Echocardiogram on December 30, 2021 revealed an EF of 45 to 50% and mild MR. 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 Cardiothoracic surgery was consulted for possible surgical myocardial vascularization. 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 Endocrine consult placed by [facility] for diabetic management. Longstanding type II diabetic with A1c of 8.4%. 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 He resides at [facility]. He presented on 12/30/2021 with sudden onset ofaltered mental status and shortness of breath. Troponin 3577. Creatinine elevated 2.3. He was transferred to [facility] for further evaluation. Echocardiogram completed showing [...] episodes of bradycardia. Plans to return [facility] [email or web address] [facility] Subjective No complaints Objective Vitals and Measurements [...] baseline, plan follow-up with Dr. Montgomery from [facility] at discharge, Urineoutput 1100 cc last 24 hours 5. CKD (chronic kidney disease), stage III 6. AF (paroxysmal atrial fibrillation) Currently atrial fibrillation rate 90, Coumadin, amiodarone, patient had previously been on amiodarone and Eliquis but these were discontinued in August 2021 7. Diabetes Hgb A1c 8.4% Glucose 141-249, [facility]ology following 8. HTN (hypertension) Blood [...] mg daily Digitally Signed by KASSIDY SHANKAR APRN-GURWINDER on 01/08/2022 11:02 AM [facility] HospitalPpxdnpqb62-96-1548 Note ORIGINAL EXAMINATION: ONE XRAY VIEW OF [...] 01/08/2022 7:49:49 AM Ordering Provider: YIMI NEWELL [facility] HospitalNkhbluzh02-34-4156 Note ORIGINAL EXAMINATION: ONE XRAY VIEW OF [...] Date: 01/08/2022 7:49:49 AM Ordering Provider: YIMI [facility]07-22-2022 Nephrology Progress note Date of Service 01/07/2022 [...] renal standpoint. Patient will follow with his senior licensing manager Dr. Montgomery in [place] on discharge. Discussed with patient. Digitally Signed by TAMIKA RODAS MD on 01/07/2022 12:42 PM [facility] HospitalMdrwvkcp18-29-5423 Note ORIGINAL EXAMINATION: TWO XRAY VIEWS OF [...] Date: 01/07/2022 12:23:59 PM [facility]inology Progress note Date of Service 01/07/22 [...] Weinstein on 12/24/2021-on prednisone. [facility]. He presented to [facility] on December 30, 2021 due to a sudden onset of alteredmental status and shortness of breath. At [facility], he was noted to have acute kidney injury with creatinine 2.3 and elevated troponin at 3577. EKG revealed normal sinus rhythm without evidenceof ST elevation or depression. Negative for COVID-19 at [facility]. He was transferred to [facility] for further evaluation. Echocardiogram on December 30, 2021 revealed an EF of 45 to 50% and mild MR. 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 Cardiothoracic surgery was consulted for possible surgical myocardial vascularization. 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 Endocrine consult placed by [facility] for diabetic management. Longstanding type II diabetic with A1c of 8.4%. Currently residing at [facility] with orders in place for Humalog 32 [...] by CASPER MURRY on 01/07/2022 04:39 PM [facility] HospitalNbqmgqxv03-99-5666 Note Date of Service 01/07/2022 Chief Complaint [...] and shortness of breath. He resides at [facility]. He denied having any chest pain or syncope. He was found to have an acute kidney injury at that time with creati nine of 2.3 and a troponin of 3577 at [facility]. He was transferred to [facility] for further evaluation where an echocardiogram revealed [...] Central venous access: Left subclavian triple-lumen Disposition: [facility] Weight Current Weight Dosing Weight: 81.5 kg [...] 7. Diabetes Hgb A1c 8.4% Followed by [facility] inpatient endocrinology. Glucoses ranging 96-1 55. On [...] by YIMI NEWELL on 01/07/2022 10:01 AM [facility] HospitalMsgjgywb69-37-0721 Anesthesiology Consult note Patient: ELIZABETH MODI Age: [...] LINN RICHARD DO on 01/07/2022 08:18 AM [facility] [id number] Note ORIGINAL EXAMINATION: TWO XRAY VIEWS OF [...] Sign Date: 01/07/2022 12:23:59 PM Ordering Provider: [facility]07-21-2022 Nephrology Progress note Date of Service [...] TAMIKA RODAS MD on 01/06/2022 10:19 AM [facility] HospitalFnoxcdru49-19-7579 Endocrinology Progress note Date of Service 01/06/22 [...] Weinstein on 12/24/2021-on prednisone. [facility] He presented to [facility] on December 30, 2021 due to a sudden onset of alteredmental status and shortness of breath. At [facility], he was noted to have acute kidney injury with creatinine 2.3 and elevated troponin at 3577. EKG revealed normal sinus rhythm without evidenceof ST elevation or depression. Negative for COVID-19 at [facility]. He was transferred to [facility] for further evaluation. Echocardiogram on December 30, 2021 revealed an EF of 45 to 50% and mild MR. Cardiac catheterization completed showing multivessel disease.Cardiothoracic surgery has been consulted for possible surgical myocardial vascularization. Endocrine consult placed by [facility] for diabetic management. Longstanding type II diabetic with A1c of 8.4%. Currently residing at [facility] with orders in place for Humalog 32 units with lunch and supper, Toujeo 70 units nightly, sliding scale 3 to 12 units with meals and at bedtime. History of CKD. GFR 34 today. QUIN initially on presentation to [facility]. [...] by CASPER MURRY on 01/06/2022 04:03 PM [facility] [id number] Note Date of Service 01/06/2022 Chief Complaint [...] and shortness of breath. He resides at [facility]. He denied having any chest pain or syncope. He was found to have an acute kidney injury at that time with creati nine of 2.3 and a troponin of 3577 at [facility]. He was transferred to [facility] for further evaluation where an echocardiogram revealed [...] 1 45, on insulin drip per the [facility] ICU glycemic protocol at 8 units/h, [...] mg, IV Push, q8h, 1 day(s), Stop: 228:00:00 EDT, 01/06/22 14:00:00 EDT levothyroxine, Start: 01/06/22 [...] by BARRERA SALES on 01/06/2022 07:42 AM [facility] HospitalWybbpzyy02-48-0495 Note ORIGINAL EXAMINATION: ONE XRAY VIEW OF [...] Sign Date: 01/06/2022 6:18:00 AM Ordering Provider: TRINY [facility]07-21-2022 Note ORIGINAL EXAMINATION: ONE XRAY VIEW OF [...] Sign Date: 01/06/2022 6:18:00 AM Ordering Provider: TRINY [facility]07-20-2022 Cardiology Progress note Date of Service [...] CELIO CLAROS MD on 01/05/2022 02:25 PM [facility] HospitalBbudtais99-31-1465 Nephrology Progress note Date of Service 01/05/2022 [...] TAMIKA RODAS MD on 01/05/2022 02:15 PM [facility] HospitalVwrvsfvy09-79-8793 Note ORIGINAL HISTORY: Line placement COMPARISON: 5 [...] Sign Date: 01/05/2022 1:24:35 PM Ordering Provider: [facility]07-20-2022 Note ORIGINAL HISTORY: Nasogastric tube placement COMPARISON: No FINDINGS: There is a nasogastric tube with tip in the stomach and side hole at the gastroesophageal junction. Interpreted by: Zack Bucio MD Preliminary Report By: Zack Bucio MD Electronically signed By Zack Bucio MD Dictated Date: 01/05/2022 1:22:43 PM Prelim Date: 01/05/2022 1:23:19 PM Sign Date: 01/05/2022 1:23:19 PM Ordering Provider: [facility]07-20-2022 Note ORIGINAL HISTORY: Line placement COMPARISON: 5 [...] Sign Date: 01/05/2022 1:24:35 PM Ordering Provider: [facility]07-20-2022 Note ORIGINAL HISTORY: Nasogastric tube placement COMPARISON: No FINDINGS: There is a nasogastric tube with tip in the stomach and side hole at the gastroesophageal junction. Interpreted by: Zack Bucio MD Preliminary Report By: Zack Bucio MD Electronically signed By Zack Bucio MD Dictated Date: 01/05/2022 1:22:43 PM Prelim Date: 01/05/2022 1:23:19 PM Sign Date: 01/05/2022 1:23:19 PM [facility] Cardiology Progress note Date of Service [...] CELIO CLAROS MD on 01/05/2022 02:25 PM [facility] HospitalTrglecnt09-36-4099 Anesthesiology Consult note Patient: ELIZABETH MODI Age: [...] kidney disease), stage III / SNOMED CT 5517228355 / Confirmed CAD (coronary artery disease) / SNOMED CT 32595235 / Confirmed Diabetes / SNOMED CT 698872571 / Confirmed History of Singh's palsy / SNOMED CT 819757957 / Confirmed HLD (hyperlipidemia) / SNOMED CT 90603348 / Confirmed HTN (hypertension) / SNOMED CT 2247223023 / Confirmed Hypothyroid / SNOMED CT 28610100 / Confirmed QUIN (acute kidney injury) / SNOMED CT 78758585 / Confirmed Mood disorder / SNOMED CT 28408876 / Confirmed NSTEMI (non-ST elevated myocardial infarction) / SNOMED CT 42299938 / Confirmed AF (paroxysmal atrial fibrillation) / SNOMED CT 664639525 / Confirmed PVD (peripheral vascular disease) / SNOMED CT 1986025471 / Confirmed Giant cell arteritis / SNOMED CT 4035027496 / Confirmed, Active Problems (24) AF (paroxysmal atrial fibrillation) QUIN (acute kidney injury) CAD (coronary artery disease) Cataract CKD (chronic kidney disease), stage III COPD (chronic obstructive pulmonary disease) Depression Diabetes DM (diabetes mellitus) 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 Family History: No family history items have been selected or recorded. Procedure history: Amputation ([id number]) in 2019 at 79 Years. Comments: 07/12/2021 14:23 Maria Esther Navarro RN Left below the knee Amputation ([id number]) in 2020 at 79 Years. Comments: 07/12/2021 14:24 ARI Mariano Jaclyndedrick Maria Esther N RN right below the knee amputation Catheter ([id number]) in 2020 at 79 Years. Comments: 07/12/2021 14:25 ARI Mariano Jaclyndedrick Maria Esther N RN Temporary dialysis cath None ([id number]). 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 No Survey Superintendent On Yes Patient Dressed In Hospital gown [...] On and Limits Checked Nail Bed Color [place] Capillary Refill < 2 seconds Heart Sounds [...] Warm Temperature All Extremities Warm Skin Description [place], Normal for ethnicity, Dry Skin Integrity Pressure points intact Skin Turgor Elastic Mucous Membrane Color [place] Mucous Membrane Description Moist Sensory Perception Dre [...] Rhythm Sinus rhythm Monitoring Lead II, V1/MCL1 MA Interval 0.17 second(s) QRS Duration 0.12 second(s) [...] Transport Mode Order Detail MTT with Monitor Evs Manager Details Form Evs Manager Details Form 01/05/2022 0:28 EDT Skin Assessment [...] Transport Mode Order Detail MTT with Monitor Evs Manager Details Form Evs Manager Details Form 01/04/2022 23:29 EDT heparin Begin [...] On and Limits Checked Nail Bed Color [place] Capillary Refill < 2 seconds Heart Sounds ICU S1S2 Heart Rhythm Regular Radial Pulse, Left 2+ Normal Radial Pulse, Right 2+ Normal Popliteal Pulse, Left 1+ Thready Popliteal Pulse, Right 1+ Thready Edema Generalized None Cardiac Rhythm Sinus rhythm Monitoring Lead II, V1/MCL1 MA Interval 0.18 second(s) QRS Duration 0.12 second(s) QT Interval 0.47 second(s) QTc Interval 0.48 second(s) Alarms On and Functional Yes Respirations Unlabored Respiratory Pattern Regular Breath Sounds Auscultated Anterior only All Lobes Breath Sounds Clear Oxygen Therapy Room air Abdomen Description Non-distended, Symmetric, Soft Abdomen Palpation Non-Tender Bowel Sounds All Quadrants Present Urinary Elimination Voiding, no difficulties All Extremity Description [place], Normal for ethnicity Skin Temperature Warm Temperature All Extremities Warm Skin Description [place], Normal for ethnicity Mucous Membrane Color [place] Mucous Membrane Description Moist Leg Bilateral Skin [...] On and Limits Checked Nail Bed Color [place] Capillary Refill < 2 seconds Heart Sounds ICU S1S2 Heart Rhythm Regular Radial Pulse, Left 2+ Normal Radial Pulse, Right 2+ Normal Popliteal Pulse, Left 1+ Thready Popliteal Pulse, Right 1+ Thready Edema Generalized None Cardiac Rhythm Sinus rhythm Monitoring Lead II, V1/MCL1 MA Interval 0.19 second(s) QRS Duration 0.12 second(s) [...] Facial Movement Symmetric resting/crying All Extremity Description [place], Normal for ethnicity Skin Temperature Warm Temperature All Extremities Warm Skin Description [place], Normal for ethnicity Skin Integrity Pressure points intact Skin Turgor Elastic Mucous Membrane Color [place] Mucous Membrane Description Moist Sensory Perception Dre [...] Symptoms Bruising Skin Temperature Warm Skin Description [place], Normal for ethnicity Skin Integrity Intact Skin Turgor Elastic Mucous Membrane Color [place] Mucous Membrane Description Moist Sensory Perception Dre [...] On and Limits Checked Nail Bed Color [place] Capillary Refill < 2 seconds Heart Sounds [...] Facial Movement Symmetric resting/crying All Extremity Description [place], Normal for ethnicity Skin Temperature Warm Temperature All Extremities Warm Skin Description [place], Normal for ethnicity Skin Integrity Pressure points intact Skin Turgor Non-Elastic Mucous Membrane Color [place] Mucous Membrane Description Moist Leg Bilateral Skin [...] 11:06 EDT Blood Glucose, Capillary 148 mg/dL SD Blood Glucose Testing Reason Routine Temperature Oral [...] Rhythm Sinus rhythm Monitoring Lead III, V1/MCL1 MA Interval 0.20 second(s) QRS Duration 0.09 second(s) [...] mEq predniSONE 10 mg mg vitamin A 01671 unit(s) unit(s) 01/04/2022 8:39 EDT Heart Rate Monitored 59 bpm LOW Reason For Taking VItal Signs Routine Primary Pain Intensity 0 Primary Pain Nonverbal Response Nods No Pain Scale Type 0-10 Pain scale Monitor Alarms On and Limits Checked Nail Bed Color [place] Capill (more content not included)... [id number] Cardiology Progress note Date of Service 01/04/22 [...] CELIO CLAROS MD on 01/04/2022 02:59 PM [facility] HospitalDvqasuua29-33-9941 Cardiology Progress note Date of Service 01/04/22 [...] 27.0 H Creatinine Lvl (s): 1.63 H 07/18 03:44 WBC: 10.7 Hgb: 13.0 Hct: 38.9 [...] CELIO CLAROS MD on 01/04/2022 02:59 PM [facility] HospitalBskqwmwa82-60-2026 Endocrinology Progress note Date of Service 01/04/22 [...] Weinstein on 12/24/2021-on prednisone. [facility] He presented to [facility] on December 30, 2021 due to a sudden onset of alteredmental status and shortness of breath. At [facility], he was noted to have acute kidney injury with creatinine 2.3 and elevated troponin at 3577. EKG revealed normal sinus rhythm without evidenceof ST elevation or depression. Negative for COVID-19 at [facility]. He was transferred to [facility] for further evaluation. Echocardiogram on December 30, 2021 revealed an EF of 45 to 50% and mild MR. Cardiac catheterization completed showing multivessel disease.Cardiothoracic surgery has been consulted for possible surgical myocardial vascularization. Endocrine consult placed by [facility] for diabetic management. Longstanding type II diabetic with A1c of 8.4%. Currently residing at [facility] with orders in place for Humalog 32 [...] by CASPER MURRY on 01/04/2022 04:05 PM [facility] HospitalVvbfhgzm11-58-8496 Note ORIGINAL EXAMINATION: CTA OF THE NECK [...] Sign Date: 01/04/2022 9:39:34 AM Ordering Provider: [facility]07-18-2022 Cardiology Progress note Date of Service 01/03/22 [...] Result Date: December 31, 2021 Verified By: JS MANTILLA DO CLINICAL STATEMENT: IMPRESSION: 1. Diffuse [...] CELIO CLAROS MD on 01/03/2022 06:35 PM [facility] HospitalLdwlurqw79-08-4162 Note ORIGINAL EXAMINATION: CTA OF THE NECK [...] Sign Date: 01/04/2022 9:39:34 AM Ordering Provider: [facility]07-18-2022 Nurse Progress note [address] CT, they said patient okay to come to CT with contrast after having metformin this AM 01/03/22. Pharmacy said to check with prescriber. Dr. Claros said patient okay to go to CT with contrast after taking metformin this AM 01/03/22. Digitally Signed by Macy Bolanos RN on 01/03/2022 04:45 PM [facility] HospitalSwnrdvvf16-71-6551 Cardiology Progress note Date of Service 01/03/22 [...] CELIO CLAROS MD on 01/03/2022 06:35 PM [facility] HospitalLnrjoqnv30-04-8163 Nephrology Progress note Date of Service 01/03/2022 [...] TAMIKA RODAS MD on 01/03/2022 10:59 AM [facility] HospitalHawyvsqz34-32-4288 Endocrinology Progress note Date of Service 01/03/22 [...] Glucose, Capillary 01/03/2022 07:10:00 EDT 174 mg/dL SD 82-115 Glucose Testing Glucose Level 01/03/2022 03:44:00 [...] Weinstein on 12/24/2021-on prednisone. He resides at [facility] past 3 months. He presented to [facility] on December 30, 2021 due to a sudden onset of alteredmental status and shortness of breath. At [facility], he was noted to have acute kidney injury with creatinine 2.3 and elevated troponin at 3577. EKG revealed normal sinus rhythm without evidenceof ST elevation or depression. Negative for COVID-19 at [facility]. He was transferred to [facility] for further evaluation. Echocardiogram on December 30, 2021 revealed an EF of 45 to 50% and mild MR. Cardiac catheterization completed showing multivessel disease.Cardiothoracic surgery has been consulted for possible surgical myocardial vascularization. Endocrine consult placed by [facility] for diabetic management. Longstanding type II diabetic with A1c of 8.4%. Currently residing at [facility] with orders in place for Humalog 32 [...] by CASPER MURRY on 01/03/2022 11:17 AM [facility] HospitalEpaplygm70-95-6196 Cardiology Progress note Date of Service 01/02/2022 [...] BILL ALMODOVAR MD on 01/02/2022 04:22 PM [facility] HospitalKjfrntlu04-15-5228 Cardiology Progress note Date of Service 01/02/2022 [...] supple, negative JVD, Lungs: Unlabored respirations, lung rois diminished bilaterally Heart: Normal sinus rhythm/bradycardia, S1-S2, [...] BILL ALMODOVAR MD on 01/02/2022 04:22 PM [facility] HospitalBlvgqtfp46-24-8543 Endocrinology Progress note Date of Service 01/02/22 [...] Weinstein on 12/24/2021-on prednisone. He resides at [facility] past 3 months. He presented to [facility] on December 30, 2021 due to a sudden onset of alteredmental status and shortness of breath. At [facility], he was noted to have acute kidney injury with creatinine 2.3 and elevated troponin at 3577. EKG revealed normal sinus rhythm without evidenceof ST elevation or depression. Negative for COVID-19 at [facility]. He was transferred to [facility] for further evaluation. Echocardiogram on December 30, 2021 revealed an EF of 45 to 50% and mild MR. Cardiac catheterization completed showing multivessel disease.Cardiothoracic surgery has been consulted for possible surgical myocardial vascularization. Endocrine consult placed by [facility] for diabetic management. Longstanding type II diabetic with A1c of 8.4%. Currently residing at [facility] with orders in place for Humalog 32 [...] same inpatient. 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 Current orders are in place for a 2-18 sliding scale with meals and at bedtime alone. Blood glucose this morning with the same 91. Discussed with [facility] SEW[facility] PIPE LAYER Katelynn. [facility] work-up continues. No definitive date for CABG. Add low-dose metformin 500 mg twice daily. Hold off on SGLT2 until postop. GLP analog could be considered outpatient. Reintroduction of basal IP as needed. Discussed with bedside RN Will continue to follow while inpatient. Time Spent Total time spent 25 minutes Digitally Signed by CASPER MURRY on 01/02/2022 01:55 PM [facility] HospitalStohoife80-72-6484 Nurse Progress note A student nurse administered medications and completed assessments on this patient under my supervision this evening. Nayeli Beckham RN Digitally Signed by KAVIN Beckham on 01/02/2022 01:02 AM [facility] HospitalDecyowlw81-85-0475 Cardiology Progress note Date of Service 01/01/2022 [...] BILL ALMODOVAR MD on 01/01/2022 08:04 PM [facility] HospitalBoqchhnp01-55-2548 Cardiology Progress note Date of Service 01/01/2022 [...] BILL ALMODOVAR MD on 01/01/2022 08:04 PM [facility] HospitalDfpshpxo96-55-1550 Note I saw and evaluated the patient on 01/01/2022. I agree with the HAND TIER note of 12/31/2021. The patient is an [...] TRINY HERNANDEZ MD on 01/01/2022 10:53 AM [id number] Cardiothoracic surgery Consult note Date of Service [...] Weinstein on 12/24/2021-on prednison. He resides at [facility] for the past 3 months. He presented to [facility] on December 30, 2021 due to a sudden onset of altered mental status and shortness of breath. He endorses nonproductive cough. Denied any chest pain or syncope. At [facility], he was noted to have acute kidney injury with creatinine 2.3 and elevated troponinat 3577. EKG revealed normal sinus rhythm without evidence of ST elevation or depression. Negative for COVID-19 at [facility]. He was transferred [facility] for further evaluation. Echocardiogram on December [...] follows with Dr. Montgomery of nephrology in [place]. 5. AF (paroxysmal atrial fibrillation) Currently in [...] from EMR and transfer alf documentation, conducting [id number] visit with patient at bedside, and dictating [...] Patient denies Living arrangements: Currently lives at [email or web address] however lived at home prior to Ambulatory [...] by YIMI NEWELL on 12/31/2021 05:21 PM [id number] Endocrinology Consult note Date of Service 01/01/22 [...] Weinstein on 12/24/2021-on prednisone. He resides at [facility] forthe past 3 months. He presented to [facility] on December 30, 2021 due to a sudden onset of altered mental status and shortness of breath. At [facility], he was noted to have acute kidney injury with creatinine 2.3 and elevated troponin at 3577. EKG revealed normal sinus rhythm without evidence of ST elevation or depression. Negative for COVID-19 at [facility]. He was transferred to [facility] for further evaluation. Echocardiogram on December 30, 2021 revealed an EF of 45 to 50% and mild MR. Cardiac catheterization completed showing multivessel disease.Cardiothoracic surgery has been consulted for possible surgical myocardial vascularization. Endocrine consult placed by CTS for diabetic management. Blood sugar trends, labs, chart reviewed Patient reports at least a 40-year history of type 2 diabetes. Managed by his PCP. Currently resides at [facility]. He is unable to speak to his [...] not caring much for the food at [facility]. He reports weight of 156 p ounds [...] thyroid disease but does have orders per [facility] for levothyroxine 50 mcg daily and carries [...] BORDERLINE PROLONGED QT INTERVAL...QTc >475mS Electronic Signature: NIDAMANURI, LOUIE MD 01/01/2022 09:30:39 Assessment/Plan 1. CAD (coronary [...] Subcutaneous, achs, NOW, 0, 01/01/22 8:24:00 EDT Citizen Of [place] [employer] Diet Consult to Diabetes Education [...] Weinstein on 12/24/2021-on prednisone. He resides at [facility] past 3 months. He presented to [facility] on December 30, 2021 due to a sudden onset of alteredmental status and shortness of breath. At [facility], he was noted to have acute kidney injury with creatinine 2.3 and elevated troponin at 3577. EKG revealed normal sinus rhythm without evidenceof ST elevation or depression. Negative for COVID-19 at [facility]. He was transferred to [facility] for further evaluation. Echocardiogram on December 30, 2021 revealed an EF of 45 to 50% and mild MR. Cardiac catheterization completed showing multivessel disease.Cardiothoracic surgery michael consulted for possible surgical myocardial vascularization. Endocrine consult placed by CTS for diabetic management. Longstanding type II diabetic with A1c of 8.4%. Currently residing at [facility] with orders in place for Humalog 32 [...] tablet, 10 mg= 1 tab(s), Oral, qDay Toanayeli Max SoloStar 300 units/mL subcutaneous solution, 100 [...] by CASPER MURRY on 01/01/2022 03:38 PM [id number] Nephrology Progress note Date of Service 01/01/2022 [...] TAMIKA RODAS MD on 01/01/2022 09:57 AM [id number] Nephrology Progress note Date of Service 01/01/2022 [...] TAMIKA RODAS MD on 01/01/2022 09:57 AM [id number] Cardiothoracic surgery Consult note Date of Service [...] Weinstein on 12/24/2021-on prednison. He resides at [facility] for the past 3 months. He presented to [facility] on December 30, 2021 due to a sudden onset of altered mental status and shortness of breath. He endorses nonproductive cough. Denied any chest pain or syncope. At [facility], he was noted to have acute kidney injury with creatinine 2.3 and elevated troponinat 3577. EKG revealed normal sinus rhythm without evidence of ST elevation or depression. Negative for COVID-19 at [facility]. He was transferred to [facility] for further evaluation. Echocardiogram on December [...] follows with Dr. Montgomery of nephrology in [place]. 5. AF (paroxysmal atrial fibrillation) Currently in [...] from EMR and transfer alf documentation, conducting kevc-zq-rvzl visit with patient at bedside, and dictating details of today'svisit. 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 HLD (hyperlipidemia) HTN (hypertension) Hypothyroid Mood disorder NSTEMI (non-ST elevated myocardial infarction) PVD (peripheral vascular disease) Procedure/Surgical History Bilateral knee amputations 2020 Bilateral temporal artery biopsies 12/24/2021 Medications Inpatient [...] Patient denies Living arrangements: Currently lives at [email or web address] however lived at home prior to Ambulatory [...] by YIMI NEWELL on 12/31/2021 05:21 PM [id number] Nephrology Progress note Date of Service 12/31/2021 [...] TAMIKA RODAS MD on 12/31/2021 11:26 AM [id number] Note ORIGINAL EXAMINATION: ONE XRAY VIEW OF [...] Sign Date: 12/31/2021 8:13:17 AM Ordering Provider: [facility]07-14-2022 History and physical note Date of Service 12/30/2021 Chief Complaint chest pain History of Present Illness This is a 81-year-old male, alf resident with prior history of atrial fibrillation, type 2diabetes, hypothyroidism, mood disorder, bilateral BKA's, hyperlipidemia who presented to due toaltered mental status. He was there diagnosed with non-ST elevation MA with troponin elevation of 3000 and uptrending. Patient also had an QUIN with creatinine 2.3. Currently patient denies any chest pain or palpitations. He denies prior history of coronary artery disease. However on further questioning does endorse he may have had a left heart catheterization at [facility] 1 year ago. Patient is [...] 36 Hour Lab Data Assessment/Plan Non-ST elevation MA ? history of atrial fibrillation on Eliquis, [...] DE LEÓN MD on 12/30/2021 10:03 AM [id number] Evaluation + Plan noteExtracted from: Title:History and Physical Author:HASEEB DE LEÓN MD Date:12/30/21 Non-ST elevation MA ? history of atrial fibrillation on Eliquis, [...] Appointment Date:01/17/2022 01:00:00 PM Scheduled Provider:HUNTER FALCON APRN-GURWINDER Location:[facility] Appointment Type:[facility] Post Op Appointment Date:02/15/2022 10:00:00 AM Scheduled Provider: Location:[facility] Appointment Type:[facility] OV [facility] 07-14-[facility] Nephrology Consult note Date of Service 12/30/2021 Reason for Consultation Stage III CKD, needs clearance for cardiac catheterization. Referring Physician Dr. Hidalgo. History of Present Illness Mr. Modi is a very pleasant 81-year-old gentleman with past medical history of hypertension, diabetes, atrial fibrillation on anticoagulation, hypothyroidism who is a resident of nursing facility in [place]. Patient was sent to [facility] due to altered mental status. He was also having chest pain. Initial lab work done at [facility] showed elevated troponin in the range of 3000.Patient was diagnosed with acute non-STEMI. He was transferred to [facility] for further management. He also had acute renal failure with creatinine of around 2.3 at ER. Repeat blood work in [place] showed that his creatinine has improved to 1.9. Patient does have history of CKD and follows with Dr. Montgomery in [place]. Dr. Montgomery does not have privileges at [facility]. Renal consultation was requested for acute [...] pain. He has been at alf in [place] from July 2021. Per family he is going to be at the alf long-term. Patient developed c hest pain and altered mental status at alf for which he was sent to ER. Over there he was diagnosed with acute non-STEMI with elevated troponin levels and eventually transferred to [facility]. His home medication list includes JERO inhibitor. He was not on any NSAIDs at the nursing facility. Review of all other systems is negative. [...] baseline creatinine, follows with Dr. Montgomery in [place] Hyperlipidemia Atrial fibrillation Procedure/Surgical History Cardiac catheterization [...] TAMIKA RODAS MD on 12/30/2021 11:57 AM [facility] [id number] History and physical note Date of Service 12/30/2021 Chief Complaint chest pain History of Present Illness This is a 81-year-old male, alf resident with prior history of atrial fibrillation, type 2diabetes, hypothyroidism, mood disorder, bilateral BKA's, hyperlipidemia who presented to due toaltered mental status. He was there diagnosed with non-ST elevation MA with troponin elevation of 3000 and uptrending. Patient also had an QUIN with creatinine 2.3. Currently patient denies any chestpain or palpitations. He denies prior history of coronary artery disease. However on further questioning does endorse he may have had a left heart catheterization at [facility] 1 year ago. Patient roseann poor historian [...] 36 Hour Lab Data Assessment/Plan Non-ST elevation MA ? history of atrial fibrillation on Eliquis, [...] Historical No qualifying data Procedure/Surgical History Amputation: 2019 Catheter: 2019 Amputation: 2019 None Medications Home Medications (11) Active amiodarone [...] DE LEÓN MD on 12/30/2021 10:03 AM [facility] [id number] Hospital Discharge instructions Follow Up Care 12/30/2021 04:59:03 [facility] Address: [address] [place] [address] [address] [facility] [place] [address]- When:01/17/2022 13:30:00 Comments:please obtain a CXR 1 hour prior to your appt. With:Discharge to [facility] LOC [phone] Address:Unknown When:1-2 days With:KARL HIDALGO MD Address: [address] [facility] [place] [address]- When:02/15/2022 10:00:00 With:Cardiac Rehab- [facility] Address: [facility] [address] [place] [address]- When: Unknown Comments:The Cardiac Rehab department will call you to schedule you for phase 2. We left you a brochure withinformation about cardiac rehab. If you have any questions please call [phone]. [facility] 08-24-2021 History of Present illness Narrative* Thu Roche RN - 02/09/2021 11:33 AM EDT Discharge instructions given to pt and licensed physical therapist at bedside. All questions answered. All belongingsat bedside. VSS. Pt resting comfortably, denies pain * Thu Roche RN - 02/09/2021 11:17 AM EDT Report called to Leighann VALE at [facility] * Thu Roche RN - 02/09/2021 11:08 AM EDT specimen preparation assistant to bedside * Thu Roche RN - 02/09/2021 11:03 AM EDT Pt arrived to [facility] 42. 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 VSS. nutritional assistant updated * Lindsey Morales RN - 02/09/2021 8:33 AM EDT Notified anesthesia blood sugar is 284 * Jazmín Burton RN - 02/05/2021 4:[address] Vicente's office called and stated pt should not hold Eliquis nor Aspirin before surgery. Will include on pre-op instructions for facility. documented in this [facility] Work Phone: Anesthesiology Consult note* LINN [...] kidney disease), stage III / SNOMED CT 1152803209 / Confirmed CAD (coronary artery disease) / SNOMED CT 26256900 / Confirmed Diabetes / SNOMED CT 252730693 / Confirmed History of Singh's palsy / SNOMED CT 459120788 / Confirmed HLD (hyperlipidemia) / SNOMED CT 61861026 / Confirmed HTN (hypertension) / SNOMED CT 4949954294 / Confirmed Hypothyroid / SNOMED CT 98211568 / Confirmed QUIN (acute kidney injury) / SNOMED CT 40809903 / Confirmed Mood disorder / SNOMED CT 81241410 / Confirmed NSTEMI (non-ST elevated myocardial infarction) / SNOMED CT 67988780 / Confirmed AF (paroxysmal atrial fibrillation) / SNOMED CT 193721551 / Confirmed PVD (peripheral vascular disease) / SNOMED CT 2208551884 / Confirmed Giant cell arteritis / SNOMED CT 1257208675 / Confirmed, Active Problems (24) AF (paroxysmal atrial fibrillation) QUIN (acute kidney injury) CAD (coronary artery disease) Cataract CKD (chronic kidney disease), stage III COPD (chronic obstructive pulmonary disease) Depression Diabetes DM (diabetes mellitus) 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 Family History: No family history items have been selected or recorded. Procedure history: Amputation ([id number]) in 2020 at 79 Years. Comments: 07/12/2021 14:23 Maria Esther Navarro RN Left below the knee Amputation ([id number]) in 2020 at 79 Years. Comments: 07/12/2021 14:24 Maria Esther Navarro RN right below the knee amputation Catheter ([id number]) in 2020 at 79 Years. Comments: 07/12/2021 14:25 Maria Esther Navarro RN Temporary dialysis cath None ([id number]). 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 No Survey Superintendent On Yes Patient Dressed In Hospital gown [...] On and Limits Checked Nail Bed Color [place] Capillary Refill < 2 seconds Heart Sounds [...] Warm Temperature All Extremities Warm Skin Description [place], Normal for ethnicity, Dry Skin Integrity Pressure points intact Skin Turgor Elastic Mucous Membrane Color [place] Mucous Membrane Description Moist Sensory Perception Dre [...] Rhythm Sinus rhythm Monitoring Lead II, V1/MCL1 MA Interval 0.17 second(s) QRS Duration 0.12 second(s) [...] Transport Mode Order Detail MTT with Monitor Evs Manager Details Form Evs Manager Details Form 01/05/2022 0:28 EDT Skin Assessment [...] Transport Mode Order Detail MTT with Monitor Evs Manager Details Form Evs Manager Details Form 01/04/2022 23:29 EDT heparin Begin [...] On and Limits Checked Nail Bed Color [place] Capillary Refill < 2 seconds Heart Sounds ICU S1S2 Heart Rhythm Regular Radial Pulse, Left 2+ Normal Radial Pulse, Right 2+ Normal Popliteal Pulse, Left 1+ Thready Popliteal Pulse, Right 1+ Thready Edema Generalized None Cardiac Rhythm Sinus rhythm Monitoring Lead II, V1/MCL1 MA Interval 0.18 second(s) QRS Duration 0.12 second(s) QT Interval 0.47 second(s) QTc Interval 0.48 second(s) Alarms On and Functional Yes Respirations Unlabored Respiratory Pattern Regular Breath Sounds Auscultated Anterior only All Lobes Breath Sounds Clear Oxygen Therapy Room air Abdomen Description Non-distended, Symmetric, Soft Abdomen Palpation Non-Tender Bowel Sounds All Quadrants Present Urinary Elimination Voiding, no difficulties All Extremity Description [place], Normal for ethnicity Skin Temperature Warm Temperature All Extremities Warm Skin Description [place], Normal for ethnicity Mucous Membrane Color [place] Mucous Membrane Description Moist Leg Bilateral Skin [...] 21:26 EDT Blood Glucose, Capillary 206 mg/dL SD Blood Glucose Testing Reason Routine 01/04/2022 19:40 EDT Temperature Oral 36.6 DegC Reason For Taking VItal Signs Routine Primary Pain Intensity 0 Primary Pain Nonverbal Response Appears restful Pain Scale Type 0-10 Pain scale Monitor Alarms On and Limits Checked Nail Bed Color [place] Capillary Refill < 2 seconds Heart Sounds ICU S1S2 Heart Rhythm Regular Radial Pulse, Left 2+ Normal Radial Pulse, Right 2+ Normal Popliteal Pulse, Left 1+ Thready Popliteal Pulse, Right 1+ Thready Edema Generalized None Cardiac Rhythm Sinus rhythm Monitoring Lead II, V1/MCL1 MA Interval 0.19 second(s) QRS Duration 0.12 second(s) [...] Facial Movement Symmetric resting/crying All Extremity Description [place], Normal for ethnicity Skin Temperature Warm Temperature All Extremities Warm Skin Description [place], Normal for ethnicity Skin Integrity Pressure points intact Skin Turgor Elastic Mucous Membrane Color [place] Mucous Membrane Description Moist Sensory Perception Dre [...] Symptoms Bruising Skin Temperature Warm Skin Description [place], Normal for ethnicity Skin Integrity Intact Skin Turgor Elastic Mucous Membrane Color [place] Mucous Membrane Description Moist Sensory Perception Dre [...] On and Limits Checked Nail Bed Color [place] Capillary Refill < 2 seconds Heart Sounds [...] Facial Movement Symmetric resting/crying All Extremity Description [place], Normal for ethnicity Skin Temperature Warm Temperature All Extremities Warm Skin Description [place], Normal for ethnicity Skin Integrity Pressure points intact Skin Turgor Non-Elastic Mucous Membrane Color [place] Mucous Membrane Description Moist Leg Bilateral Skin [...] Rhythm Sinus rhythm Monitoring Lead III, V1/MCL1 MA Interval 0.20 second(s) QRS Duration 0.09 second(s) [...] mEq predniSONE 10 mg mg vitamin A 44905 unit(s) unit(s) 01/04/2022 8:39 EDT Heart Rate Monitored 59 bpm LOW Reason For Taking VItal Signs Routine Primary Pain Intensity 0 Primary Pain Nonverbal Response Nods No Pain Scale Type 0-10 Pain scale Monitor Alarms On and Limits Checked Nail Bed Color [place] Capillary Refill < 2 seconds Heart Sounds [...] Facial Movement Symmetric resting/crying All Extremity Description [place], Normal for ethnicity Skin Temperature Warm Temperature All Extremities Warm Skin Description [place], Normal for ethnicity Skin Integrity Pressure points intact Skin Turgor Non-Elastic Mucous Membrane Color [place] Mucous Membrane Description Moist Leg Bilateral Wound [...] Transport Mode Order Detail MTT with Monitor Evs Manager Details Form Evs Manager Details Form 01/04/2022 7:11 EDT Blood Glucose, [...] Rhythm Sinus rhythm Monitoring Lead III, V1/MCL1 MA Interval 0.18 second(s) QRS Duration 0.09 second(s) [...] Type 0-10 Pain scale Nail Bed Color [place] Capillary Refill < 2 seconds Heart Sounds [...] Facial Movement Symmetric resting/crying All Extremity Description [place], Normal for ethnicity Skin Temperature Warm Temperature All Extremities Warm Skin Description Normal for ethnicity Skin Integrity Pressure points intact Skin Turgor Non-Elastic Mucous Membrane Color [place] Mucous Membrane Description Moist Leg Bilateral Skin [...] Rhythm Sinus rhythm Monitoring Lead III, V1/MCL1 MA Interval 0.20 second(s) QRS Duration 0.09 second(s) [...] Light Use Yes . Assessment and Plan Citizen Of [place] Society of Anesthesiologists (ASA) physical status classification: [...] LINN RICHARD DO on 01/05/2022 07:59 AM [facility] evaluation + Plan note Future Appointments Appointment Date:02/07/2022 01:00:00 PM Scheduled Provider:HUNTER FALCON Location:[facility] Appointment Type:[facility] Post Op Follow Up Appointment Date:02/15/2022 10:00:00 AM Scheduled Provider: Location:[facility] Appointment Type:[facility] Hospital Follow Up Future Scheduled Tests Radiology* XR Chest 2 Views (PA & Lateral) 02/07/22 [facility] evaluation note* Diagnosis Optic nerve edema- Primary Papilloedema, unspecified [facility]* Diagnosis Vision changes- Primary Unspecified visual disturbance Photosensitivity Acute dermatitis due to solar radiation PVD (peripheral vascular disease) ([facility]) Peripheral vascular disease, unspecified Type 2 diabetes mellitus with other specified complication, without long-term current use of insulin (HCC) 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 steroids Encounter for long-term (current) use of steroids Vitamin D deficiency Unspecified vitamin D deficiency [facility]* Diagnosis Onset Date Resolution Status Renal mass acute Calculous cholecystitis with obstruction resolved Choledocholithiasis resolved Cholecystostomy care acute Renal mass [facility] Work Phone: evaluation note* Diagnosis Onset Date Resolution Status Renal mass acute Calculous cholecystitis with obstruction resolved Choledocholithiasis resolved Cholecystostomy care acute Renal mass acute Cholecystostomy care [facility] Work Phone: evaluiphvp note* Diagnosis Screening for genitourinary condition- Primary Screening for other and unspecified genitourinary condition Gross hematuria Left renal mass Unspecified disorder of kidney and ureter [facility]* Diagnosis Gross hematuria documented in this encounter [facility] note* Diagnosis Gross hematuria- Primary Screening for genitourinary condition Screening for other and unspecified genitourinary condition [facility]* Diagnosis Gross hematuria- Primary documented in this encounter [facility] note* Diagnosis Gross hematuria- Primary Left renal mass Unspecified disorder of kidney and ureter documented in this encounter [facility] course Narrative No data available for this section [facility] Hospital Discharge instructions* Instructions* Ammy Vicente [...] next day as directed. [facility] Discharge instructions No data available for this section [facility] Progress note No data available for this section [facility] Reason for referral (narrative)No reason for referral information [facility] Work Phone: Summary Purpose Family History No [...] Documents on File Type Date Recorded Patient Criminalist Expl anation Advance Directive(s) 12/09/2019 8:26 AM Advance Directive(s) 08/22/2019 2:27 PM Advance Directive(s) 08/21/2019 4:25 PM Advance Directive Response Recorded Date/ Time Name of Medical Power of Criminal Justice Instructor Angelic Linette December 14, 2022 3:40am Living Will Yes December 14, 2022 3:40am Power of Criminal Justice Instructor Yes December 14 3:40am Advance Directive Response Recorded Date/ Time Living Will Yes January 11, 2024 7:47am Do you have a Healthcare Power of Criminal Justice Instructor? Yes January 11, 2024 7:47am Advance Directive Response Recorded Date/ Time Do you have a Healthcare Power of Criminal Justice Instructor? Yes October 15, 2024 5:49pm Name of Medical Power of Criminal Justice Instructor angelic durán October 15, 2024 5:49pm Hospital Course Note HNO ID: [id number] Author: Emily Prescott DO Service: General Surgery [...] (more content not included)... Note HNO ID: [id number] Author: Teo Duran DO Service: General Surgery Author Type: Resident [...] Referral Specialty Diagnoses / Procedures Referred By Contac t Referred To Contact CT IMAGING Diagnoses Gross hematuria Procedures CT UROGRAM WO/W IVCON CT ABD & PELVIS W/WO CONTRST 1+ BODY Nikolai Fisher PA-C [address] [place] [address] [place] [address] Referral ID Status Reason Start Date Expiration Date Visits Requested Visits Authorized [id number] Authorized Auto-Generat ed Referral 06/25/2024 07/18/2025 1 1 Specialty Diagnoses / Procedures Referred By Contalanna t Referred To Contact Ophthalmology Diagnoses Vision changes Photosensitivity Procedures CONSULT TO OPHTHALMOLOGY OFFICE/OUTPATIENT [facility] 60-74 MINUTES Shana Ga MD [address] [place] [address] Referral ID Status Reason Start Date Expiration Date Visits Requested Visits Authorized [id number] Authorized PCP Requested Referral 09/01/2022 09/01/2023 1 [...] 3 M FU June 06, 2024 3:30pm [facility] June 17 1:00pm NEW CONCERN June 17, 2024 3:17pm LABWORK June 20, 2024 5: 00am [facility] June 27, 2024 5:50am MONTHLY EXAM July 05, 2024 3 :48pm MONTHLY EXAM July 23, 2024 4 :43pm [facility] July 24, 2024 4:00am LABWORK August 01, 2024 2:00pm LABWORK August 21, 2024 5:00 am 4 M FU September 06, 2024 1:3 8pm Reason for Visit Admit Date Fecal incontinence June 06, 2024 3:30pm S/P ERCP June 06, 2024 3:30pm Fecal incontinence September 06, 2024 1:3 8pm S/P ERCP September 06, 2024 1:3 8pm Chief Complaint Admit Date [facility] June 17 1:00pm NEW CONCERN June 17, 2024 3:17pm LABWORK June 20, 2024 5: 00am [facility] June 27, 2024 5:50am MONTHLY EXAM July 05, 2024 3 :48pm MONTHLY EXAM July 23, 2024 4 :43pm [facility] July 24, 2024 4:00am LABWORK [...] Date LABWORK June 20, 2024 5: 00am [facility] June 27, 2024 5:50am MONTHLY EXAM July 05, 2024 3 :48pm MONTHLY EXAM July 23, 2024 4 :43pm [facility] July 24, 2024 4:00am LABWORK August 01, 2024 2:00pm LABWORK August 21, 2024 5:00 am MONTHLY EXAM September 03, 2024 6:1 1pm NEW CONCERN September 05, 2024 1:1 5pm 4 M FU September 06, 2024 1:3 8pm LABWORK September 18, 2024 5:00 am fall October 15, 2024 3:5 7pm Chief Complaint Admit Date MONTHLY EXAM July 23, 2024 4 :43pm [facility] July 24, 2024 4:00am LABWORK August 01, 2024 2:00pm LABWORK August 21, 2024 5:00 am MONTHLY EXAM September 03, 2024 6:1 1pm NEW CONCERN September 05, 2024 1:1 5pm 4 M FU September 06, 2024 1:3 8pm LABWORK September 18, 2024 5:00 am fall October 15, 2024 3:5 7pm FU NH WANTED SOONER THAN DECEMBER SO DIDN'T WANT DIRECTOR E LEARNING October 16, 2024 7:59am LABWORK October 23, 2024 5:00am Reason for Visit Admit Date Fecal incontinence September 06, 2024 1:3 8pm S/P ERCP September 06, 2024 1:3 8pm Atherosclerotic heart diseas e of [place] coronary artery without angina pectoris October 16, [...] WANTED SOONER THAN DECEMBER SO DIDN'T WANT DIRECTOR E LEARNING October 16, 2024 7:59am LABWORK October 23, 2024 5:00am [facility] November 07, 2024 5:0 0am [...] WANTED SOONER THAN DECEMBER SO DIDN'T WANT DIRECTOR E LEARNING October 16, 2024 7:59am LABWORK October 23, 2024 5:00am [facility] November 07, 2024 5:0 0am LABWORK November 20, 2024 5:00a m Chief Complaint Admit Date LABWORK September 18, 2024 5:00 am Monthly Exam September 24, 2024 3:41 pm New Concern October 01, 2024 3:2 5pm fall October 15, 2024 3:5 7pm FU NH WANTED SOONER THAN DECEMBER SO DIDN'T WANT DIRECTOR E LEARNING October 16, 2024 7:59am LABWORK October 23, 2024 5:00am [facility] November 07, 2024 5:0 0am LABWORK November 20, 2024 5:00a m MONTHLY EXAM December 03, 2024 3:30 pm LABWOKR December 18, 2024 5:00a m Reason for Visit Admit Date Atherosclerotic heart diseas e of [place] coronary artery without angina pectoris October 16, 2024 7:59am Essential hypertension October 16, 2024 7:59am Hyperlipidemia October 16, 2024 7:5 9am Paroxysmal atrial fibrillation September 7:59am Chief Complaint Admit Date fallOctober 15, 2024 3:5 7pm FU NH WANTED SOONER THAN DECEMBER SO DIDN'T WANT DIRECTOR E LEARNING October 16, 2024 7:59am LABWORK October 23, 2024 5:00am [facility] November 07, 2024 5:0 0am LABWORK November 20, 2024 5:00a m MONTHLY EXAM December 03, 2024 3:30 pm LABWOKR December 18, 2024 5:00a m Monthly Exam December 24, 2024 5:38p m Additional Source Comments (unrecognized sect ion and content) No Status Records FoundNo Status Records FoundNo Status Records FoundNo Status Records FoundNo Status Records FoundNo Status Records FoundNo Status Records FoundNo Status Records FoundNo Status Records FoundNo Status Records FoundNo Status Records Found INFORMATION SOURCE (unrecogn ized section and content) DATE CREATED AUTHOR 05/19/2020 [facility] DATE CREATED AUTHOR AUTHOR'S ORGANIZ ATION 05/21/2020 [facility] DATE CREATED AUTHOR AUTHOR'S ORGANIZ ATION 02/11/2021 [facility] DATE CREATED AUTHOR AUTHOR'S ORGANIZ ATION 08/05/2021 [facility] DATE CREATED AUTHOR AUTHOR'S ORGANIZ ATION 09/07/2021 [facility] DATE CREATED AUTHOR AUTHOR'S ORGANIZ ATION 04/15/2023 [facility] DATE CREATED AUTHOR AUTHOR'S ORGANIZ ATION 01/11/2024 [facility] ([place]) DATE CREATED AUTHOR AUTHOR'S ORGANIZ ATION 10/06/2024 [facility] DATE CREATED AUTHOR AUTHOR'S ORGANIZ ATION 01/15/2025 [facility] DATE CREATED AUTHOR AUTHOR'S ORGANIZ ATION 01/21/2025 [facility] DATE CREATED AUTHOR AUTHOR'S ORGANIZ ATION 02/01/2025 [facility] Scheduled Active and Recently Administ ered Medications [...] Morales RN)09 (Given - Provider: Lindsey Morales RN)0925 (Given [...] surgery) 0920 (Given - Provid er: Lindsey Morales, RN)1128 (Given - Provider: Thu Roche RN [...] or prosecute any alcohol or drug abuse patient.[facility] HealthIn the event this information is protected by the Federal Confidentiality of Alcohol and Drug Abuse Patient Records regulations: The Federal rules restrict any use of the information to criminally investigate or prosecute any alcohol or drug abuse patient.[facility] HealthIn the event this information is protected by the Federal Confidentiality of Alcohol and Drug Abuse Patient Records regulations: The Federal rules restrict any use of the information to criminally investigate or prosecute any alcohol or drug abuse patient.[facility] HealthIn the event this information is protected by the Federal Confidentiality of Alcohol and Drug Abuse Patient Records regulations: The Federal rules restrict any use of the information to criminally investigate or prosecute any alcohol or drug abuse patient.[facility] HealthIn the event this information is protected by the Federal Confidentiality of Alcohol and Drug Abuse Patient Records regulations: The Federal rules restrict any use of the information to criminally investigate or prosecute any alcohol or drug abuse patient.[facility] HealthIn the event this information is protected by the Federal Confidentiality of Alcohol and Drug Abuse Patient Records regulations: The Federal rules restrict any use of the information to criminally investigate or prosecute any alcohol or drug abuse patient.[facility] HealthIn the event this information is protected by the Federal Confidentiality of Alcohol and Drug Abuse Patient Records regulations: The Federal rules restrict any use of the information to criminally investigate or prosecute any alcohol or drug abuse patient.[facility] HealthIn the event this information is protected by the Federal Confidentiality of Alcohol and Drug Abuse Patient Records regulations: The Federal rules restrict any use of the information to criminally investigate or prosecute any alcohol or drug abuse patient.[facility] HealthIn the event this information is protected by the Federal Confidentiality of Alcohol and Drug Abuse Patient Records regulations: The Federal rules restrict any use of the information to criminally investigate or prosecute any alcohol or drug abuse patient.[facility] HealthIn the event this information is protected by the Federal Confidentiality of Alcohol and Drug Abuse Patient Records regulations: The Federal rules restrict any use of the information to criminally investigate or prosecute any alcohol or drug abuse patient.[facility] HealthIn the event this information is protected by the Federal Confidentiality of Alcohol and Drug Abuse Patient Records regulations: The Federal rules restrict any use of the information to criminally investigate or prosecute any alcohol or drug abuse patient.[facility] HealthIn the event this information is protected by the Federal Confidentiality of Alcohol and Drug Abuse Patient Records regulations: The Federal rules restrict any use of the information to criminally investigate or prosecute any alcohol or drug abuse patient.[facility] HealthIn the event this information is protected by the Federal Confidentiality of Alcohol and Drug Abuse Patient Records regulations: The Federal rules restrict any use of the information to criminally investigate or prosecute any alcohol or drug abuse patient.[facility] HealthIn the event this information is protected by the Federal Confidentiality of Alcohol and Drug Abuse Patient Records regulations: The Federal rules restrict any use of the information to criminally investigate or prosecute any alcohol or drug abuse patient.[facility] Care Teams (unrecognized sec tion and content) [...] 2024 End: September 03, 2024 Christina Whipple SEWER PIPE LAYER, SEWER PIPE LAYER-C Attending Provider Active Start: September 03, 2024 End: September 03, 2024 Team Status: Inactive Member Role Status Dates Dr. Diana Salmeron MD Primary Care Provider Active Start: September 05, 2024 End: September 05, 2024 Christina Whipple SE[employer] PIPE LAYER, SEWER PIPE LAYER-C Attending Provider Active Start: September 05, 2024 [...] Status: Inactive Member Role Status Dates Dr. Diaan Salmeron MD Primary Care Provider Active Start: [...] 2024 End: June 17, 2024 Christina Whipple NP, NP-C Attending Provider Active Start: June 17, 2024 [...] 2024 End: July 05, 2024 Christina Whipple SEWER PIPE LAYER, SEWER PIPE LAYER-C Attending Provider Active Start: July 05, 2024 End: July 05, 2024 Sales Service Manager Relationship Specialty Start Date End Date Dexter Reyes Chi [address] [id number] PCP - General Gerontology 12/06/19 Ryan Rodrigues MD [address] [facility] [place] [address] Infectious Diseases 12/06/19 Yadi White, DO [address] [place], [place] [id number] Urology 04/28/20 Sales Service Manager Relationship Specialty Start Date End Date Diana Salmeron MD [address] [place], [place] [id number] PCP - General Internal Medicine 09/01/22 Ryan Rodrigues MD [address] [place] [address] Infectious Diseases 12/06/19 Yadi White, DO [address] [place] [address] Urology 04/28/20 Isac Lucas [address] [place], [place] [address] Referring Ophthalmology 06/27/22 Sales Service Manager Relationship Specialty Start Date End Date Diana Salmeron MD [address] [place], [place] [address] PCP - General Internal Medicine 09/01/22 Ryan Rodrigues MD [address] [facility] [place] [address] Infectious Diseases 12/06/19 Yadi White, DO [address] [place] [address] Urology 04/28/20 Isac Lucas [address] [place], [place] [address] Referring Ophthalmology 06/27/22 Sales Service Manager Relationship Specialty Start Date End Date Diana Salmeron MD [address] [facility] [address] [place] [address] PCP - General Internal Medicine 09/01/22 Ryan Rodrigues MD [address] [facility] [place] [address] Infectious Diseases 12/06/19 Yadi White, DO [address] [place] [address] Urology 04/28/20 Isac Lucas [address] [place] [address] Referring Ophthalmology 06/27/22 Team Status: Active Member [...] MD Admit Provider, Other Provider Active Dr. Dwanye Palumbo MD Other Provider Active Dr. Jesse [...] Attending Provider, Referring P rovider Active Sales Service Manager Relationship Specialty Start Date End Date Diana Salmeron MD [address] [place], [place] [address] PCP - General Internal Medicine 09/01/22 Ryan Rodrigues MD [address] [place] [address] Infectious Diseases 12/06/19 [place] [address] [place] [address] Urology 04/28/20 Isac Lucas [address] [place], [place] [address] Referring Ophthalmology 06/27/22 Sales Service Manager Relationship Specialty Start Date End Date Diana Salmeron MD [address] [place], [place] [address] PCP - General Internal Medicine 09/01/22 Ryan Rodrigues MD [address] [place] [address] Infectious Diseases 12/06/19 Yadi White DO [address] [place] [address] Urology 04/28/20 Isac Lucas [facility] [place] [address] Referring Ophthalmology 06/27/22 Sales Service Manager Relationship Specialty Start Date End Date Diana Salmeron MD [address] [place] [address] PCP - General Internal Medicine 09/01/22 Ryan Rodrigues MD [address] [place] [address] Infectious Diseases 12/06/19 Yadi White DO [address] [place] [address] Urology 04/28/20 Isac Lucas [address] [place], [place] [address] Referring Ophthalmology 06/27/22 Sales Service Manager Relationship Specialty Start Date End Date Diana Salmeron MD [address] [place] [address] PCP - General Internal Medicine 09/01/22 Ryan Rodrigues MD [facility] [address] [place] [address] Infectious Diseases 12/06/19 Yadi White DO [address] [place] [address] Urology 04/28/20 Isac Lucas [address] [place], [place] [address] Referring Ophthalmology 06/27/22 Sales Service Manager Relationship Specialty Start Date End Date Diana Salmeron MD [address] [facility] [place], [place] [address] PCP - General Internal Medicine 09/01/22 Ryan Rodrigues MD [address] [facility] [place] [address] Infectious Diseases 12/06/19 Yadi White DO [address] [place], [place] 3[address] Urology 04/28/20 Isac Lucas [address] [place], [place] [address] Referring Ophthalmology 06/27/22 Team Status: Inactive Member [...] Provider Active Start: September 18, 2024 Sales Service Manager Relationship Specialty Start Date End Date Diana Salmeron MD [address] [facility] [address] [place], [place] [address] PCP - General Internal Medicine 09/01/22 Ryan Rodrigues MD [address] [place] [address] Infectious Diseases 12/06/19 Yadi White DO [address] [place], [place] 6[address] Urology 04/28/20 Isac Lucas [address] [place], [place] [address] Referring Ophthalmology 06/27/22 Sales Service Manager Relationship Specialty Start Date End Date Diana Salmeron MD [address] [facility] [address] [facility] [place] [address] PCP - General Internal Medicine 09/01/22 Ryan Rodrigues MD [address] [facility] [place] [address] Infectious Diseases 12/06/19 Yadi White DO [address] [place] [id number] Urology 04/28/20 Isac Lucas [address] [place] [address] Referring Ophthalmology 06/27/22 Team Status: Inactive Member [...] End: October 01, 2024 Christina Whipple NP, SEWER PIPE LAYER-C Attending Provider Active Start: October 01, 2024 [...] End: September 03, 2024 Christina Whipple NP, SEWER PIPE LAYER-C Attending Provider Active Start: September 03, 2024 End: September 03, 2024 Team Status: Inactive Member Role/Relationship Status Dates Dr. Diana Salmeron MD Primary Care Provider Active Start: September 05, 2024 End: September 05, 2024 Christina Whipple NP, SEWER PIPE LAYER-C Attending Provider Active Start: September 05, 2024 [...] End: October 01, 2024 Christina Whipple NP, NP-C Attending Provider Active Start: October 01, 2024 [...] 2024 End: October 23, 2024 Victor M DAVDI MD Attending Provider Active Start: October 23, 2024 End: October 23, 2024 Team Status: Inactive Member Role/Relationship Status Dates Dr. Diana Salmeron MD Primary Care Provider Active Start: November 07, 2024 End: November 07, 2024 Christina DAVID NP-C Attending Provider Active Start: November 07, 2024 [...] 2024 End: October 01, 2024 Christina Whipple NP SEWER PIPE LAYERMarianoC Attending Provider Active Start: October 01, 2024 [...] Provider Active Start: December 18, 2024 Sales Service Manager Relationship Specialty Start Date End Date Diana Salmeron MD [address] [place] [place] [address] PCP - General Internal Medicine 09/01/22 Ryan Rodrigues MD [address] [place] [address] Infectious Diseases 12/06/19 [place] [address] [place] [address] Urology 04/28/20 Isac Lucas [address] [place], [place] [address] Referring Ophthalmology 06/27/22 Team Status: Inactive Member Role/Relationship Status Dates [...] Attending Provider Active Start: December 18, 2024 Team Status: Inactive Member Role/Relationship Status Dates Dr. Diana Salmeron MD Primary Care Provider Active Start: December 24, 2024 End: December 24, 2024 Christina Whipple NP SEWER PIPE LAYER-C Attending Provider Active Start: December 24, 2024 End: December 24, 2024 Team Status: Active Member Role/Relationship Status Dates Dr. Diana Salmeron MD Primary Care Provider Active Start: January 20, 2025 Victor M DAVID MD Attending Provider Active Start: January 20, 2025 Team Status: Active Member Role/Relationship Status Dates Dr. Diana Salmeron MD Primary Care Provider Active Start: January 22, 2025 Victor M DAVID MD Attending Provider Active Start: January 22, 2025 Team Status: Active Member Role/Relationship Status Dates Dr. Diana Salmeorn MD Primary Care Provider Active Start: January 28, 2025 Victor M DAVID MD Attending Provider Active Start: January 28, 2025 Care Team (unrecognized sect ion and content) Care Team Related Persons Name: LINETTE ANGELIC Care Team Personnel Name: DIANA SALMERON MD Med Service: Internal Medicine Member Role: Primary Care Physician Address: Address: [address] [place] [address] Care Team Related Persons Name: LINETTE ANGELIC Reason for Visit (unrecogniz ed section and [...] W/WO CONTRST 1+ BODY Nikolai Fisher PA-C [address] [employer] [place] [id number] Imaging [id number] Referral ID Status Reason Start Date Expiration Date V isits Requested Visits Authorized [id number] Closed Auto-Generate d Referral 06/25/2024 07/18/2025 1 [...] BE BASED ON THE PRIMARY CLINICAL RECORDS. [employer] provides no warranty or guarantee of the accuracy or completeness of information in this document.
[2025-02-04 07:33] LABS: Albumin, Serum 3.4 g/dL (3.4-4.8); Anion Gap 13 (5-15); BUN 26 mg/dL (4-19); BUN/Creat Ratio 15.7 RATIO (10-20); Calcium,Total 8.4 mg/dL (7.6-11.0); Carbon Dioxide 19.7 mmol/L (21.0-32.0); Chloride 106 mmol/L (98-108); Glucose 76 mg/dL (70-99); Potassium 4.2 mmol/L (3.3-5.1)
== END ==
LOC: OLS.WHLEAS 04:00
PROVIDERS: PCP Internal Medicine; Referring Provider Internal Medicine; Visit Provider Internal Medicine
DX: N18.32 Chronic kidney disease, stage 3b (principal); E11.22 Type 2 diabetes mellitus with diabetic chronic kidney disease; E11.40 Type 2 diabetes mellitus with diabetic neuropathy, unspecified; J96.11 Chronic respiratory failure with hypoxia
CPT/HCPCS: 36415; 80069

== ENCOUNTER → 2025-02-11 04:00 | Outpatient (REF) | payer MEDICARE, MEDICAID, SELFPAY ==
[2025-02-11 07:26] LABS: Albumin, Serum 3.3 g/dL (3.4-4.8); Anion Gap 12 (5-15); BUN 33 mg/dL (4-19); BUN/Creat Ratio 21.9 RATIO (10-20); Calcium,Total 8.2 mg/dL (7.6-11.0); Carbon Dioxide 19.2 mmol/L (21.0-32.0); Chloride 108 mmol/L (98-108); Glucose 148 mg/dL (70-99); Potassium 4.5 mmol/L (3.3-5.1)
== END ==
LOC: OLS.WHLEAS 04:00
PROVIDERS: PCP Internal Medicine; Referring Provider Internal Medicine; Visit Provider Internal Medicine
DX: N18.32 Chronic kidney disease, stage 3b (principal); E11.40 Type 2 diabetes mellitus with diabetic neuropathy, unspecified; E11.22 Type 2 diabetes mellitus with diabetic chronic kidney disease
CPT/HCPCS: 36415; 80069

== ENCOUNTER → 2025-02-19 05:00 | Outpatient (REF) | payer MEDICARE, MEDICAID, SELFPAY ==
--- OUTSIDE RECORDS SUMMARY | 2025-02-19 04:44 | XMS RPT_ITS | CCD ---
Author Organization [facility] Care Team Providers Care Battery Service Technician Name Role Phone Eric LATHAM, Papa Primary Care Provider ERIC, DEXTER-CHI Primary Care Unavailable HUMA MARIO Referring Unavailable MARIO FINN Attending Unavailable ERIC, DEXTER-CHI Primary Care Unavailable YUSUF COOPER Attending Unavailable ERIC, DEXTER-CHI Referring Unavailable ERIC, DEXTER-CHI Referring Unavailable ERIC, DEXTER-CHI Primary Care Unavailable MARIO FINN Attending Unavailable Eric, Dexter Chi Primary Care Provider [phone] Ryan Rodrigues MD Unavailable [phone] Yadi White DO Unavailable DR DIANA SALMERON MD Primary Care Physician Ryan Rodrigues MD Unavailable [phone] Ruben White DOyrgracia Unavailable Isac Lucas Unavailable Diana Salmeron MD Primary Care Provider Dr. Dexter Reyes Chi Primary Care Provider Dr. Bren Lopes Admit Provider [phone] Bren Lopes Other Provider Dr. Dwayne Palumbo Other Provider Dr. Jesse Haywood Attending Provider Dr. Jesse Haywood Other Provider Dr. Dwayne Palumbo Attending Provider [phone] Friend, Dr. Sauceda Attending Provider Dr. Jesse [...] Rojas MD Attending Provider Unavaila ble [place] MULTIPLE TUBE WINDING MACHINE OPERATOR-C, Christina Attending Provider Dr. Victor M Rojas [...] Rojas MD Attending Provider Unavaila ble [place] MULTIPLE TUBE WINDING MACHINE OPERATOR-C, Christina Attending Provider Dr. Jesse Angel DO Emergency Provider Latouf MD, Dr. Butros Primary Care Provider [phone] Victor M Rojas MD Attending Provider Unavaila ble Sole MULTIPLE TUBE WINDING MACHINE OPERATOR-C, Christina Attending Provider Dr. Jesse Angel DO Attending Provider Foster GARLAND, Lauren Bryan Attending Provider Sole MULTIPLE TUBE WINDING MACHINE OPERATOR-C, Christina Attending Provider Faviola LATHAM, Dr. Ortiz Primary Care Provider [phone] Victor M Rojas MD Attending Provider UnavailDr. Victor M Meneses MD Attending Provider Dr. Diana Salmeron MD Primary Care Provider Victor M Rojas MD Attending Provider Unavaila ble Sole MULTIPLE TUBE WINDING MACHINE OPERATOR-C, Christina Attending Provider Dr. Diana Salmeron MD Referring Provider GAYAL CLINE Attending Unavailable LATOUF, BUTROS Primary Care Unavailable ERIC MONTGOMERY I Attending Unavailable DIANA SALMERON MD Consulting Unavailable ERIC MONTGOMERY I Admitting Unavailable ERIC MONTGOMERY I Primary Care Unavailable PROVIDER, UNKNOWN Consulting Unavailable PROVIDER, UNKNOWN Consulting Unavailable PROVIDER, UNKNOWN Consulting Unavailable Faviola LATHAM, Dr. Ortiz Primary Care Provider Victor M Rojas MD Attending Provider UnavailDr. Victor M Meneses MD Attending Provider [place]ickelian[place] MULTIPLE TUBE WINDING MACHINE OPERATOR-C, Christina Attending Provider Oleghe OLS Efewongbe Attending [...] Latouf, Butros Primary Care Unavailable Oleghe FRANKIE Efewongprice Attending Unavailabl e Eric Montgomery Attending Unavailable [...] Unavailable Oleghe OLS, Efewongbe Attending Unavailabl e Christina Whipple NP Attending Unavailable Latouf, Butros Primary Care Unavailable Oleghe OLS, Efewongbe Attending Unavailabl e Oleghe OLS, Efewongbe Referring Unavailabl e Latouf, Butros Primary Care Unavailable Oleghe OLS, Efewongbe Attending Unavailabl e Latouf, Butros Primary Care Unavailable Oleghe OLS, Efewongbe Referring Unavailabl e Oleghe OLS, Efewongbe Attending Unavailabl e Latouf, Butros Primary Care Unavailable Oleghe OLS, Efewongbe Attending Unavailabl e Latouf, Butros Primary Care Unavailable Oleghe OLS, Efewongbe Attending Unavailabl e Latouf, Butros Primary Care Unavailable Oleghe, Efewongbe Attending Unavailable Latouf, Butros Primary Care Unavailable Jesse Angel Attending Unavailable Latouf, Butros Primary Care Unavailable Latouf, Butros Primary Care Unavailable Sohail Owen Attending Unavailable Latouf, Butros Referring Unavailable Latouf, Butros Primary Care Unavailable Latouf, Butros Referring Unavailable Kacie Simon Attending Unavailable Latouf, Butros Primary Care Unavailable Christina Whipple NP Attending Unavailable Latouf, Butros Primary Care Unavailable Oleghe, Efewongbe Attending Unavailable Sole MULTIPLE TUBE WINDING MACHINE OPERATOR, Christina Attending Unavailable Latouf, Butros Primary Care Unavailable Sole MULTIPLE TUBE WINDING MACHINE OPERATOR, Christina Attending Unavailable Latouf, Butros Primary Care Unavailable Oleghe, Efewongbe Attending Unavailable Latouf, Butros Primary Care Unavailable Latouf, Butros Referring Unavailable Kacie Simon Attending Unavailable Latouf, Butros Primary Care Unavailable Latouf, Butros Referring Unavailable Nasim Caballero Attending Unavailable Latouf, Butros Primary Care Unavailable [place] MULTIPLE TUBE WINDING MACHINE OPERATOR, Christina Attending Unavailable Latouf, Butros Primary Care Unavailable Elenoton MULTIPLE TUBE WINDING MACHINE OPERATOR, Christina Attending Unavailable Latouf, Butros Primary Care Unavailable Latouf, Butros Referring Unavailable Foster GARLAND, Lauren Bryan Attending Unavail able Latouf, Butros Primary Care Unavailable Oleghe, Efewongbe Attending Unavailable Latouf, Butros Primary Care Unavailable Sole MULTIPLE TUBE WINDING MACHINE OPERATOR, Christina Attending Unavailable Latouf, Butros Primary Care Unavailable Oleghe, Efewongbe Attending Unavailable Latouf, Butros Primary Care Unavailable Sole MULTIPLE TUBE WINDING MACHINE OPERATOR, Christina Attending Unavailable Latouf, Butros Primary Care Unavailable Fadiouf , Dr. Ortiz Primary Care Provider [phone] Victor M Rojas MD Referring Provider Unavaila ble Medications Current Medications Medication Drug Class(es) Dates [...] mouth . albuterol 0.83 mg/ml inhalation solution (7 sources) beta2-Adrenergic Agonist Start: take 2.5 mg by inhalation twice daily [...] once daily. amLODIPine 2.5 mg oral tablet (16 sources) Dihydropyridine Calcium Channel Nicole Start: take [...] MG DAILY@0800 October 12, 2019 7:37am 10-12-2019 [facility] ([id number]) 0 10/12/2019 Active Comment on above: Aspirin Aspirin E.C. Active 81 MG DAILY@0800 October 12, 2019 7:37am 10-12-2019 [facility] ([id number]) Take 81 mg by mouth. atorvastatin 40 [...] tablet 1 tab po BID Cholestyramine Resin (10 sources) Bile Acid Sequestrant Start: take 1 [...] dose colestipol hydrochloride 1000 mg oral tablet (20 sources) Bile Acid Sequestrant Start: 06-06-2024 End: [...] Start: 08-19-2019 take 2 tablets by mo [facility] once daily levothyroxine (SYNTHROID) 25 mcg [...] DAILY December 14, 2022 12:00am Multivitamin tablet (10 sources) Start: 12-15-19 Multivitamin tablet Active 1 {tbl} PO DAILY December 14, 2022 12:00am mupirocin 0.02 mg/mg topical ointment (8 sources) RNA Synthetase Inhibitor Antibacterial Start: 01-15-20 mupirocin (BACTROBAN) 2 % ointment 01/14/2023 Active nystatin 148426 unt/ml topical cream (10 sources) Polyene Antifungal Start: 03-04-20 Nystatin 100,000 unit/gram cream Active 1 NMA TOPICAL daily March 04, 2024 12:00am ondansetron 4 mg oral tablet (20 sources) Serotonin-3 Receptor Antagonist Start: 05-30-20 take [...] (Z OFRAN-ODT) disintegrating tablet 4 mg oxyCODONE (13 sources) Opioid Agonist Start: 02-09-2021 End: 02-09-2021 oxyCODONE (ROXICODONE) immediate release tablet 5 mg Start: 09-11-2019 End: 10-12-2019 take 1 tablet by mouth every six hours as needed for pain Oxycodone 5 MG tablet Discontinued 5 mg PO EVERY 6 HOURS NEEDED as needed for pain September 11, 2019 12:00am October 12, 2019 7:45am polyethylene glycol 3350 65132 mg powder for oral solution (20 sources) [...] pen injector 3 mg. 01/13/2025 Active vit C,Z-Pv-scvmh-lutein-zeax an (PRESERVISION AREDS-2) 250-90-40-1 mg (12 sources) Start: 12-09-2020 vit C,E-Zn-ad copy writer ke-jretou-ajsjzz (PRESERVISION AREDS-2) 250-90-40-1 mg Take 1 Each by mouth. 12/09/2020 Active Start: 12-09-2020 vit C,E-Zn-ad copy writer iz-jdzvre-ukzaoy (PRESERVISION AREDS-2) 250-90-40-1 mg Take 1 Each by mouth. 0 12/09/2020 Active Comment on above: Take 1 Each by mouth . Completed/Discontinued Medications Medication Drug Class(es) Dates Sig (Normalized) Sig (Original) acetaminophen 325 mg / HYDROcodone bitartrate 5 mg oral tablet (12 sources) Opioid Agonist Start: 11-27-2019 End: 12-02-2019 [...] Discontinued 1 TABLET PO TWICE A DAY December 17, 2022 12:00am December 21, 2022 12:03am Start: 11-27-2019 End: 12-07-2019 Amoxicillin-Pot Clavulanate 1 EACH tablet Discontinued 1 {tbl} PO TWICE A DAY 20 November 27, 2019 12:00am December 06, 2019 [...] Stop Date: 01/26/22 Status: Ordered Aspir 81 (12 sources) Start: 09-11-2019 End: 10-12-2019 Aspir 81 [...] Drop (FLURESS) cholecalciferol 0.025 mg oral capsule (13 sources) Vitamin D Start: 05-18-2020 End: 03-04-2024 Cholecalciferol (Vitamin D3) 25 MCG capsule Discontinued 1000 U PO DAILY May 18, 2020 1:00am March 04, 2024 11:25am SUPPLEMENT Start: 05-18-2020 take 1000 [IU] by [facility] once daily Cholecalciferol (Vitamin D3) Active 1000 [...] once daily. collagenase 0.25 unt/mg topical ointment (13 sources) Collagen-specific Enzyme Start: 0 End: 2 Collagenase Clostridium Histo. 1 APPLIC ointment Discontinued 1 NMA TP DAILY May 18, 2020 1:00am September 01, 2021 8:30am WOUND Comment on above: apply SULLY CRUZ TO ULCER DAILY docusate sodium 50 mg / sennosides, fdc 8.6 mg oral tablet (1 source) take [...] 0 Suspended furosemide 40 mg oral tablet (13 sources) Loop Diuretic Start: 2 End: 2 [...] 7:40am nerve pain take 1 capsule by [facility] once daily for pain gabapentin (NEURONTIN) 100 MG capsule Take 100 mg by mouth daily. For phantom limb pain. 0 Suspended Comment on above: Take 600 mg by mouth twice daily. glimepiride 4 mg oral tablet (12 sources) Sulfonylurea Start: 0 End: 0 take [...] li bcutaneous injection once daily at bedtime CADE MAX U-300 SOLOSTAR 300 unit/mL (3 mL) [...] daily. ketorolac tromethamine 5 mg/ml ophthalmic solution (19 sources) Nonsteroidal Anti-inflammatory Drug, Cyclooxygenase Inhibitor Start: 05-25-2023 End: 03-04-2024 Ketorolac 0.5 % drops Discontinued 1 NMA OPHTHALMIC .May 25, 2023 1:00am March 04, 2024 11:25am [...] Comment on above: Take 1,000 mg by [facility] twice daily. miconazole nitrate 0.02 mg/mg topical powder (10 sources) Azole Antifungal Start: 3 End: 4 [...] omeprazole 40 mg delayed release oral capsule (13 sources) Proton Pump Inhibitor Start: 2 End: 3 take 1 capsule by mouth once daily Omeprazole 40 mg capsule,delayed release(DR/EC) Discontinued 40 mg PO DAILY March 03, 2022 12:00am January 11, 2023 1:06pm take 2 capsules by mouth once da neo omeprazole (PRILOSEC) 20 MG delayed release capsule Take 40 mg by mouth daily 0 Suspended pantoprazole 40 mg delayed release oral tablet (20 sources) Proton Pump Inhibitor Start: 01-11-2023 End: [...] 1 drop pioglitazone 30 mg oral tablet (12 sources) Peroxisome Proliferator Receptor alpha Agonist, Peroxisome [...] drop traMADol hydrochloride 50 mg oral tablet (9 sources) Opioid Agonist Start: 5 End: 5 [...] te Episodic/Chronic Acute and unspecified renal failure (14 sources) Acute renal failure syndrome; Translations: [Acute kidney failure, unspecified] Onset: 12-31-2021 Episodic Acute myocardial infarction (5 sources) Non-ST elevation (NSTEMI) myocardial infarction; Translations: [Myocardial infarction] Onset: 12-31-2021 Chronic Acute posthemorrhagic anemia (14 sources) Acute posthemorrhagic anemia; Translations: [Acute posthemorrhagic anemia] Onset: 01-05-2022 Episodic Allergic reactions (1 source) Photosensitivity; Translations: [Other specified acute skin changes due to ultraviolet radiation] Episodic Biliary tract disease (20 sources) Common bile duct calculus; Translations: [Calculus of bile duct without cholangitis or cholecystitis without obstruction] 12-25-2022 Episodic Blindness and vision defects (13 sources) Eye / vision finding; Translations: [Unspecified [...] Translations: [Chronic kidney disease, stage 3b] Onset: 02-12-2025 Chronic obstructive pulmonary disease and bronchiectasis (12 sources) Chronic obstructive lung disease; Translations: [Chronic [...] Coronary atherosclerosis; Translations: [Atherosclerotic heart disease of [place] coronary artery without angina pectoris] Onset: 12-31-2021 [...] psychotic disturbance, mood disturbance, and anxiety] Onset: 12-14-2024 Chronic Diabetes mellitus with complications (20 sources) Chronic kidney disease due to type 2 diabetes mellitus; Translations: [Type 2 diabetes mellitus with diabetic chronic kidney disease] Onset: 11-15-2024 Chronic Diabetes mellitus without complication (20 sources) Type 2 diabetes mellitus without complication; Translations: [Type 2 diabetes mellitus without complications] Onset: 08-21-2019 12-09-2020 Chronic Diseases of white blood cells (4 sources) Leukocytosis; Translations: [Elevated white blood cell count, unspecified] Onset: 01-06-2022 Chronic Disorders of lipid metabolism (20 sources) Dyslipidemia; Translations: [Hyperlipidemia, unspecified] Onset: 08-21-2019 08-21-2019 Chronic Disorders of teeth and jaw (12 sources) Edentulous; Translations: [Complete loss of teeth, unspecified cause, unspecified class] 09-01-2021 Chronic E Codes: Fall (8 sources) Fall; Translations: [Unspecified fall, initial encounter] [...] Chronic Immunizations and screening for infectious disease (12 sources) Infectious disease carrier; Translations: [Carrier of infectious disease, unspecified] 09-01-2021 Episodic Mood disorders (5 sources) Mood disorder; Translations: [Unspecified mood [affective] disorder] Onset: 12-31-2021 Chronic Mycoses (12 sources) Onychomycosis due to dermatophyte ; Translations: [...] Long-term current use of systemic steroid; Translations: [exterminator helper (current) use of systemic steroids] Episodic Other aftercare (5 sources) Drug therapy finding; Translations: [Other intermediate designer (current) drug therapy] 12-25-2022 Episodic Other aftercare (7 sources) Long-term current use of amiodarone; Translations: [Other intermediate designer (current) drug therapy] 05-16-2022 Episodic Other bone disease and musculoskeletal deformities (1 source) Amputated left lower limb below knee; Translations: [Acquired absence of left leg below knee] Chronic Other bone disease and musculoskeletal deformities (12 sources) History of amputation of right leg through tibia and fibula; Translations: [Acquired absence of right leg below knee] Onset: 05-19-2021 09-01-2021 Chronic Other connective tissue disease (12 sources) Pain in right lower limb; Translations: [...] Onset: 12-09-2020 12-09-2020 Episodic Other gastrointestinal disorders (12 sources) Patient encounter status; Translations: [Encounter for [...] digestive tract] 01-11-2023 Chronic Other gastrointestinal disorders (18 sources) Incontinence of feces; Translations: [Full incontinence of feces] 03-04-2024 Episodic Other injuries and conditions due to external causes (8 sources) Abrasion and/or friction burn of multiple sites; Translations: [Unspecified multiple injuries, initial encounter] 10-15-2024 Episodic Other nervous system disorders (1 source) 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; Translations: [Personal history of other diseases of the nervous system and sense organs] Onset: 12-31-2021 Episodic Other nervous system disorders (3 sources) H/O: Singh's palsy 12-31-2021 Episodic Other nutritional; endocrine; and metabolic disorders (13 sources) Hypomagnesemia; Translations: [Hypomagnesemia] Chronic Comment on above: Due to increased exc retion of magnesium in the urine Other nutritional; endocrine; and metabolic disorders (1 source) Obese class II; Translations: [Body mass index (BMI) 37.0-37.9, adult] Chronic Other nutritional; endocrine; and metabolic disorders (12 sources) Obesity; Translations: [Obesity, unspecified] 12-25-2022 Chronic [...] unspecified] Onset: 01-13-2022 Episodic Residual codes; unclassified (18 sources) Past history of procedure; Translations: [Other specified postprocedural states] 09-04-2023 Episodic Comment on above: 6.29.[address]ment; 12.19.23 with stent removal Respiratory failure; insufficiency; arrest (adult) (2 sources) Chronic respiratory failure with hypoxia; Translations: [Chronic respiratory failure with hypoxia] Onset: 12-14-2024 Chronic Retinal detachments; defects; vascular occlusion; and retinopathy (1 source) Pattern dystrophy of macula; 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] Onset: 12-09-2020 12-09-2020 Chronic Screening and history of mental health and substance abuse codes (1 source) H/O: Disorder; Translations: [Personal history of nicotine dependence] Episodic Septicemia (except in labor) (12 sources) Sepsis; Translations: [Sepsis, unspecified organism] 05-20-2020 Episodic Skin and subcutaneous tissue infections (20 sources) Cellulitis of lower limb; Translations: [Cellulitis of right lower limb] 09-01-2021 Episodic Comment on above: Right groin incision -resolved Substance-related disorders (12 sources) Tobacco dependence in remission; Translations: [Nicotine dependence, unspecified, in remission] 09-01-2021 Chronic Comment on above: quit in Superficial injury; contusion (20 sources) Blister of toe without infection; Translations: [Blister (nonthermal), left lesser toe(s), initial encounter] 09-01-2021 Episodic Comment on above: left dorsal fifth to e Systemic lupus erythematosus and connective tissue disorders (18 sources) Temporal arteritis; Translations: [Other giant cell [...] accident] Onset: 10-21-2024 Episodic Residual codes; unclassified (12 sources) History of cardiovascular surgery; Translations: [Other specified postprocedural states] Onset: 08-18-2019 09-01-2021 Episodic Comment on above: R femoral on 09/02/19 Residual codes; unclassified (1 source) Other specified postprocedural states; Translations: [Other specified postprocedural states] Onset: 06-06-2024 Episodic Unclassified (12 sources) Blister (nonthermal), left foot, initial encounter 09-01-2021 Comment on above: dorsal hindfoot, lef t Results Test Name Value Interpretation Reference Range Facility Anion gap in Serum or Plasma Ordered By: Victor M Rojas on 02-11-2025 Anion gap [Moles/Vol] 12 mmol/L 5-15 [facility] BUN/creatinine ratioOrdered By: Victor M Rojas on 02-11-2025 Urea nitrogen/Creatinine [Mass ratio] 21.9 mg/mg High 10-20 [facility] Carbon dioxide, total [Moles /volume] in Central venous bloodOrdered By: Victor M Rojas on 02-11-2025 CO2 [Moles/Vol] 19.2 mmol/L Low 21.0-32.0 [facility] Chloride assayOrdered By: Stefan Rojas on 02-11-2025 Chloride [Moles/Vol] 108 mmol/L 98-108 [facility] Glomerular filtration rate ( GFR) estimation/1.73 sq m using serum, plasma, or whole bOrdered By: Victor M Rojas on 02-11-2025 GFR/1.73 sq M.predicted among non-blacks MDRD (S/P/Bld) [Vol rate/Area] 46 mL/min/{1.73_m2} Low >60 [facility] Comment on above: mL/min/1.73m2 CKD-EP I Creatinine Equation (2020) Potassium measurement (mass/ volume)Ordered By: Victor M Rojas on 02-11-2025 Potassium (Unsp spec) [Mass/Vol] 4.5 mmol/L 3.3-5.1 [facility] Serum creatinine measurement (mass/volume)Ordered By: Victor M Rojas on 02-11-2025 Creatinine [Mass/Vol] 1.51 mg/dL High 0.70-1.20 [facility] Serum glucose measurement (m ass/volume)Ordered By: Victor M Rojas on 02-11-2025 Glucose [Mass/Vol] 148 mg/dL High 70-99 [facility] Serum or plasma albumin akash urement (mass/volume)Ordered By: Victor M Rojas on 02-11-2025 Albumin [Mass/Vol] 3.3 g/dL Low 3.4-4.8 [facility] Serum or plasma calcium akash urement (mass/volume)Ordered By: Victor M Rojas on 02-11-2025 Calcium [Mass/Vol] 8.2 mg/dL 7.6-11.0 [facility] Serum or plasma urea nitroge n measurement (mass/volume)Ordered By: Victor M Rojas on 02-11-2025 Urea nitrogen [Mass/Vol] 33 mg/dL High - [facility] Sodium levelOrdered By: Brandon perezkandis Bob on 02-11-2025 Sodium [Moles/Vol] 139 mmol/L 133-145 [facility] Anion gap in Serum or Plasma Ordered By: Victor M Rojas on 02-04-2025 Anion gap [Moles/Vol] 13 mmol/L - [facility] BUN/creatinine ratioOrdered By: Victor M Rojas on 02-04-2025 Urea nitrogen/Creatinine [Mass ratio] 15.7 mg/mg 04-07 [facility] Carbon dioxide, total [Moles /volume] in Central venous bloodOrdered By: Victor M Rojas on 02-04-2025 CO2 [Moles/Vol] 19.7 mmol/L Low 21.0-32.0 [facility] Chloride assayOrdered By: Stefan Rojas on 02-04-2025 Chloride [Moles/Vol] 106 mmol/L 98-108 [facility] Glomerular filtration rate ( GFR) estimation/1.73 sq m using serum, plasma, or whole bOrdered By: Victor M Rojas on 02-04-2025 GFR/1.73 sq M.predicted among non-blacks MDRD (S/P/Bld) [Vol rate/Area] 41 mL/min/{1.73_m2} Low >60 [facility] Comment on above: mL/min/1.73m2 CKD-EP I Creatinine Equation (2020) Potassium measurement (mass/ volume)Ordered By: Victor M Rojas on 02-04-2025 Potassium (Unsp spec) [Mass/Vol] 4.2 mmol/L 3.3-5.1 [facility] Serum creatinine measurement (mass/volume)Ordered By: Victor M Rojas on 02-04-2025 Creatinine [Mass/Vol] 1.64 mg/dL High 0.70-1.20 [facility] Serum glucose measurement (m ass/volume)Ordered By: Victor M Rojas on 02-04-2025 Glucose [Mass/Vol] 76 mg/dL 70-99 [facility] Serum or plasma albumin akash urement (mass/volume)Ordered By: Victor M Rojas on 02-04-2025 Albumin [Mass/Vol] 3.4 g/dL 3.4-4.8 [facility] Serum or plasma calcium akash urement (mass/volume)Ordered By: Victor M Rojas on 02-04-2025 Calcium [Mass/Vol] 8.4 mg/dL 7.6-11.0 [facility] Serum or plasma urea nitroge n measurement (mass/volume)Ordered By: Victor M Rojas on 02-04-2025 Urea nitrogen [Mass/Vol] 26 mg/dL High 4-19 [facility] Sodium levelOrdered By: Brandon Rojas on 02-04-2025 Sodium [Moles/Vol] 139 mmol/L 133-145 [facility] Anion gap in Serum or Plasma Ordered By: Victor M Rojas on 01-28-2025 Anion gap [Moles/Vol] 12 mmol/L 5-15 [facility] BUN/creatinine ratioOrdered By: Victor M Rojas on 01-28-2025 Urea nitrogen/Creatinine [Mass ratio] 15.7 mg/mg 10-20 [facility] Carbon dioxide, total [Moles /volume] in Central venous bloodOrdered By: Victor M Rojas on 01-28-2025 CO2 [Moles/Vol] 19.7 mmol/L Low 21.0-32.0 [facility] Chloride assayOrdered By: Stefan Rojas on 01-28-2025 Chloride [Moles/Vol] 106 mmol/L 98-108 [facility] Glomerular filtration rate ( GFR) estimation/1.73 sq m using serum, plasma, or whole bOrdered By: Victor M Rojas on 01-28-2025 GFR/1.73 sq M.predicted among non-blacks MDRD (S/P/Bld) [Vol rate/Area] 38 mL/min/{1.73_m2} Low >60 [facility] Comment on above: mL/min/1.73m2 CKD-EP I Creatinine Equation (2020) Potassium measurement (mass/ volume)Ordered By: Victor M Rojas on 01-28-2025 Potassium (Unsp spec) [Mass/Vol] 4.1 mmol/L 3.3-5.1 [facility] Serum creatinine measurement (mass/volume)Ordered By: Victor M Rojas on 01-28-2025 Creatinine [Mass/Vol] 1.74 mg/dL High 0.70-1.20 [facility] Serum glucose measurement (m ass/volume)Ordered By: Victor M Rojas on 01-28-2025 Glucose [Mass/Vol] 137 mg/dL High 70-99 [facility] Serum or plasma albumin akash urement (mass/volume)Ordered By: Victor M Rojas on 01-28-2025 Albumin [Mass/Vol] 3.2 g/dL Low 3.4-4.8 [facility] Serum or plasma calcium akash urement (mass/volume)Ordered By: Victor M Rojas on 01-28-2025 Calcium [Mass/Vol] 8.1 mg/dL 7.6-11.0 [facility] Serum or plasma urea nitroge n measurement (mass/volume)Ordered By: Victor M Rojas on 01-28-2025 Urea nitrogen [Mass/Vol] 27 mg/dL High 4-19 [facility] Sodium levelOrdered By: Brandon Rojas on 01-28-2025 Sodium [Moles/Vol] 138 mmol/L 133-145 [facility] Anion gap in Serum or Plasma Ordered By: Victor M Rojas on 01-22-2025 Anion gap [Moles/Vol] 15 mmol/L 5-15 [facility] BUN/creatinine ratioOrdered By: Victor M Rojas on 01-22-2025 Urea nitrogen/Creatinine [Mass ratio] 24.3 mg/mg High 10-20 [facility] Carbon dioxide, total [Moles /volume] in Central venous bloodOrdered By: Victor M Rojas on 01-22-2025 CO2 [Moles/Vol] 18.3 mmol/L Low 21.0-32.0 [facility] Chloride assayOrdered By: Stefan Rojas on 01-22-2025 Chloride [Moles/Vol] 103 mmol/L 98-108 [facility] Glomerular filtration rate ( GFR) estimation/1.73 sq m using serum, plasma, or whole bOrdered By: Victor M Rojas on 01-22-2025 GFR/1.73 sq M.predicted among non-blacks MDRD (S/P/Bld) [Vol rate/Area] 33 mL/min/{1.73_m2} Low >60 [facility] Comment on above: mL/min/1.73m2 CKD-EP I Creatinine Equation (2020) Potassium measurement (mass/ volume)Ordered By: Victor M Rojas on 01-22-2025 Potassium (Unsp spec) [Mass/Vol] 3.9 mmol/L 3.3-5.1 [facility] Serum creatinine measurement (mass/volume)Ordered By: Victor M Rojas on 01-22-2025 Creatinine [Mass/Vol] 1.96 mg/dL High 0.70-1.20 [facility] Serum glucose measurement (m ass/volume)Ordered By: Victor M Rojas on 01-22-2025 Glucose [Mass/Vol] 83 mg/dL 70-99 [facility] Serum or plasma albumin akash urement (mass/volume)Ordered By: Victor M Rojas on 01-22-2025 Albumin [Mass/Vol] 3.3 g/dL Low 3.4-4.8 [facility] Serum or plasma calcium akash urement (mass/volume)Ordered By: Victor M Rojas on 01-22-2025 Calcium [Mass/Vol] 8.2 mg/dL 7.6-11.0 [facility] Serum or plasma urea nitroge n measurement (mass/volume)Ordered By: Victor M Rojas on 01-22-2025 Urea nitrogen [Mass/Vol] 48 mg/dL High 4-19 [facility] Sodium levelOrdered By: Brandon Rojas on 01-22-2025 Sodium [Moles/Vol] 136 mmol/L 133-145 [facility] Absolute lymphocyte countOrd ered By: Brandonleonaprice Granadosluissammi on 01-20-2025 Lymphocytes Auto (Unsp spec) [#/Vol] 1.51 10*3/uL 0.83-4.51 [facility] Absolute neutrophil countOrd ered By: Stefanvianeyleonaprice Granadosluissammi on 01-20-2025 Neutrophils (Bld) [#/Vol] 6.1 10*3/uL 2.0-7.7 [facility] Anion gap in Serum or Plasma Ordered By: Victor M Rojas on 01-20-2025 Anion gap [Moles/Vol] 16 mmol/L High 5-15 [facility] Automated lymphocyte count a s percentage of total leukocytesOrdered By: Victor M Granadosluissammi on 01-20-2025 Lymphocytes/100 WBC Auto (Unsp spec) 16.5 % Low 19-41 [facility] BUN/creatinine ratioOrdered By: Victor M Rojas on 01-20-2025 Urea nitrogen/Creatinine [Mass ratio] 16.1 mg/mg 10-20 [facility] Basophil percentageOrdered B y: Victor M Rojas on 01-20-2025 Basophils/100 WBC (Bld) 0.3 % 0-1 [facility] Carbon dioxide, total [Moles /volume] in Central venous bloodOrdered By: Victor M Rojas on 01-20-2025 CO2 [Moles/Vol] 19.5 mmol/L Low 21.0-32.0 [facility] Chloride assayOrdered By: Stefan Rojas on 01-20-2025 Chloride [Moles/Vol] 103 mmol/L 98-108 [facility] Eosinophil percentageOrdered By: Victor M Rojas on 01-20-2025 Eosinophils/100 WBC (Bld) 1.2 % 0-5 [facility] Erythrocyte distribution wid th ratioOrdered By: Victor M Rojas on 01-20-2025 Erythrocyte distribution width (RBC) [Ratio] 14.9 % High 11.6-14.6 [facility] Erythrocyte distribution wid th standard deviationOrdered By: Victor M Rojas on 01-20-2025 Erythrocyte distribution width (RBC) [Ratio] 47.9 fl High 35.1-43.9 [facility] Glomerular filtration rate ( GFR) estimation/1.73 sq m using serum, plasma, or whole bOrdered By: Victor M Rojas on 01-20-2025 GFR/1.73 sq M.predicted among non-blacks MDRD (S/P/Bld) [Vol rate/Area] 29 mL/min/{1.73_m2} Low >60 [facility] Comment on above: mL/min/1.73m2 CKD-EP I Creatinine Equation (2020) Hematocrit Auto (Bld) [Volum e fraction]Ordered By: Victor M Rojas on 01-20-2025 Hematocrit (Bld) [Volume fraction] 42.5 % 40-54 [facility] Hemoglobin measurementOrdere d By: Victor M Rojas on 01-20-2025 Hemoglobin (Bld) [Mass/Vol] 14.0 g/dL 13.0-16.5 [facility] Immature granulocytes/100 WB C Auto (Bld)Ordered By: Victor M Rojas on 01-20-2025 Immature granulocytes/100 WBC (Bld) 2.100 % High 0.0-0.9 [facility] Comment on above: IG% - Immature Granu locytes (promyelocytes, myelocytes and metamyelocytes) > 1% indicates that a LEFT SHIFT is Present. MCV (mean corpuscular volume ) determinationOrdered By: Victor M Rojas on 01-20-2025 MCV (RBC) [Entitic vol] 88.4 fL 80-94 [facility] Mean corpuscular hemoglobin (MCH) determinationOrdered By: Victor M Rojas on 01-20-2025 MCH (RBC) [Entitic mass] 29.1 pg 27.0-32.0 [facility] Mean corpuscular hemoglobin concentration (MCHC) determinationOrdered By: Victor M Rojas 01-20-2025 MCHC (RBC) [Mass/Vol] 32.9 g/dL 32-36 [facility] Mean platelet volume determi nationOrdered By: Victor M Rojas 01-20-2025 Platelet mean volume (Bld) [Entitic vol] 11.6 fL 6.2-12.0 [facility] Monocyte percentageOrdered B y: Victor M Rojas on 01-20-2025 Monocytes/100 WBC (Bld) 13.4 % High 0-10 [facility] Neutrophil percentageOrdered By: Victor M Rojas on 01-20-2025 Neutrophils/100 WBC (Bld) 66.5 % 47-70 [facility] Nucleated red blood cell per centageOrdered By: Victor M Darwinkelly on 01-20-2025 Nucleated RBC/100 WBC (Bld) [Ratio] 0 % 0-5 [facility] Platelet countOrdered By: Stefan radha Darwinluissammi on 01-20-2025 Platelets (Bld) [#/Vol] 218 10*3/uL 150-450 [facility] Potassium measurement (mass/ volume)Ordered By: Victor M Rojas on 01-20-2025 Potassium (Unsp spec) [Mass/Vol] 4.0 mmol/L 3.3-5.1 [facility] RBC Auto (Bld) [#/Vol]Ordere d By: Victor M Darwinluissammi on 01-20-2025 RBC (Bld) [#/Vol] 4.81 10*6/uL 4.6-6.2 [facility] Serum creatinine measurement (mass/volume)Ordered By: Stefanvianeyleonaprice Granadosluissammi on 01-20-2025 Creatinine [Mass/Vol] 2.19 mg/dL High 0.70-1.20 [facility] Serum glucose measurement (m ass/volume)Ordered By: Stefanvianeyleonaprice Rojas on 01-20-2025 Glucose [Mass/Vol] 211 mg/dL High 70-99 [facility] Serum or plasma albumin akash urement (mass/volume)Ordered By: Stefanvianeyleonaprice Granadosluissammi on 01-20-2025 Albumin [Mass/Vol] 3.3 g/dL Low 3.4-4.8 [facility] Serum or plasma calcium akash urement (mass/volume)Ordered By: Victor M Rojas on 01-20-2025 Calcium [Mass/Vol] 8.4 mg/dL 7.6-11.0 [facility] Serum or plasma urea nitroge n measurement (mass/volume)Ordered By: Victor M Rojas on 01-20-2025 Urea nitrogen [Mass/Vol] 35 mg/dL High 4-19 [facility] Sodium levelOrdered By: Brandon Rojas on 01-20-2025 Sodium [Moles/Vol] 139 mmol/L 133-145 [facility] White blood cell (WBC) count Ordered By: Victor M Rojas on 01-20-2025 WBC (Bld) [#/Vol] 9.2 10*3/uL 4.4-11.0 [facility] CNOVon 01-14-2025 CNOV Office Visit ([facility]CANT ) ELIZABETH MODI ([id number]) 1940 M T Date Time Provider Department [...] Procedure confirmed with physician and customer support advisor: Yes UNIVERSAL PROTOCOL / SAFETY CHECKLIST Procedure [...] provided wit (more content not included)... Normal [facility] Anion gap in Serum or Plasma Ordered By: Victor M Rojas on 12-18-2024 Anion gap [Moles/Vol] 14 mmol/L 5-15 [facility] BUN/creatinine ratioOrdered By: Victor M Rojas on 12-18-2024 Urea nitrogen/Creatinine [Mass ratio] 18.6 mg/mg 10-20 [facility] Bilirubin, totalOrdered By: Victor M Rojas on 12-18-2024 Bilirubin [Mass/Vol] 0.79 mg/dL 0.00-1.30 [facility] Calculated very low density lipoprotein (VLDL) cholesterol measurementOrdered By: Victor M Rojas on 12-18-2024 Calculated very low density lipoprotein (VLDL) cholesterol measurement 25 mg/dL 5-40 [facility] Carbon dioxide, total [Moles /volume] in Central venous bloodOrdered By: Victor M Rojas on 12-18-2024 CO2 [Moles/Vol] 19.2 mmol/L Low 21.0-32.0 [facility] Chloride assayOrdered By: Stefan Rojas on 12-18-2024 Chloride [Moles/Vol] 105 mmol/L 98-108 [facility] Erythrocyte distribution wid th ratioOrdered By: Victor M Rojas on 12-18-2024 Erythrocyte distribution width (RBC) [Ratio] 14.9 % High 11.6-14.6 [facility] Erythrocyte distribution wid th standard deviationOrdered By: Victor M Rojas on 12-18-2024 Erythrocyte distribution width (RBC) [Ratio] 48.5 fl High 35.1-43.9 [facility] Glomerular filtration rate ( GFR) estimation/1.73 sq m using serum, plasma, or whole bOrdered By: Victor M Rojas on 12-18-2024 GFR/1.73 sq M.predicted among non-blacks MDRD (S/P/Bld) [Vol rate/Area] 38 mL/min/{1.73_m2} Low >60 [facility] Comment on above: mL/min/1.73m2 CKD-EP I Creatinine Equation (2020) Hematocrit Auto (Bld) [Volum e fraction]Ordered By: Victor M Rojas on 12-18-2024 Hematocrit (Bld) [Volume fraction] 44.3 % 40-54 [facility] Hemoglobin A1c percentageOrd ered By: Victor M Rojas on 12-18-2024 HbA1c (Bld) [Mass fraction] 8.8 % High <5.7 [facility] Comment on above: Normal < 5.7 % Predi abetic 5.7 - 6.4 % Diabetic >or= 6.5 % Please note range changes. Hemoglobin measurementOrdere d By: Victor M Rojas on 12-18-2024 Hemoglobin (Bld) [Mass/Vol] 14.1 g/dL 13.0-16.5 [facility] LDL calc ser/plasOrdered By: Victor M Rojas on 12-18-2024 Cholesterol in LDL [Mass/Vol] 48 mg/dL [facility] Comment on above: Txfpbzjqeb=204-655 m g/dL & Higher Ofkm=162 mg/dL or greater Laboratory - Chemistry and C hemistry - challengeOrdered By: Victor M Rojas on 12-18-2024 AST [Catalytic activity/Vol] 27 U/L <38 [facility] MCV (mean corpuscular volume ) determinationOrdered By: Victor M Rojas on 12-18-2024 MCV (RBC) [Entitic vol] 89.1 fL 80-94 [facility] Mean corpuscular hemoglobin (MCH) determinationOrdered By: Victor M Rojas on 12-18-2024 MCH (RBC) [Entitic mass] 28.4 pg 27.0-32.0 [facility] Mean corpuscular hemoglobin concentration (MCHC) determinationOrdered By: Victor M Rojas on 12-18-2024 MCHC (RBC) [Mass/Vol] 31.8 g/dL Low 32-36 [facility] Mean platelet volume determi nationOrdered By: Victor M Rojas on 12-18-2024 Platelet mean volume (Bld) [Entitic vol] 11.5 fL 6.2-12.0 [facility] Platelet countOrdered By: Stefan Rojas on 12-18-2024 Platelets (Bld) [#/Vol] 218 10*3/uL 150-450 [facility] Potassium measurement (mass/ volume)Ordered By: Victor M Rojas on 12-18-2024 Potassium (Unsp spec) [Mass/Vol] 4.3 mmol/L 3.3-5.1 [facility] RBC Auto (Bld) [#/Vol]Ordere d By: Victor M Rojas on 12-18-2024 RBC (Bld) [#/Vol] 4.97 10*6/uL 4.6-6.2 [facility] Screening total cholesterol/ high density lipoprotein (HDL) cholesterol ratioOrdered By: Victor M Rojas on 12-18-2024 Cholesterol.total/Cholest giuliana in HDL [Mass ratio] 4.53 {ratio} [facility] Serum creatinine measurement (mass/volume)Ordered By: Victor M Rojas on 12-18-2024 Creatinine [Mass/Vol] 1.74 mg/dL High 0.70-1.20 [facility] Serum globulin measurementOr dered By: Victor M Rojas on 12-18-2024 Globulin (S) [Mass/Vol] 3.5 g/dL 2.2-4.2 [facility] Serum glucose measurement (m ass/volume)Ordered By: Victor M Rojas on 12-18-2024 Glucose [Mass/Vol] 82 mg/dL 70-99 [facility] Serum or plasma alanine mojica otransferase (ALT) measurementOrdered By: Victor M Rojas on 12-18-2024 ALT [Catalytic activity/Vol] 20 U/L <47 [facility] Serum or plasma albumin akash urement (mass/volume)Ordered By: Victor M Rojas on 12-18-2024 Albumin [Mass/Vol] 3.3 g/dL Low 3.4-4.8 [facility] Serum or plasma albumin/glob ulin mass ratioOrdered By: Victor M Rojas on 12-18-2024 Albumin/Globulin [Mass ratio] 1.0 {ratio} 0.9-2.4 [facility] Serum or plasma alkaline marielos sphatase measurementOrdered By: Victor M Rojas on 12-18-2024 ALP [Catalytic activity/Vol] 117 U/L 40-129 [facility] Serum or plasma calcium akash urement (mass/volume)Ordered By: Victor M Rojas on 12-18-2024 Calcium [Mass/Vol] 8.8 mg/dL 7.6-11.0 [facility] Serum or plasma cholesterol in HDL measurement (mass/volume)Ordered By: Victor M Rojas on 12-18-2024 Cholesterol in HDL [Mass/Vol] 21 mg/dL Low >40 [facility] Comment on above: National Cholesterol Education Program (NCEP) guidelines:<40 mg/dL: Low HDL-cholesterol (major risk factor for CHD)>= 60 mg/dL: High HDL-cholesterol (negative risk factor for CHD)HDL-cholesterol is affected by a number of factors, e.g. smoking, exercise, hormones, sex and age. Serum or plasma cholesterol measurement (mass/volume)Ordered By: Victor M Rojas on 12-18-2024 Cholesterol [Mass/Vol] 94 mg/dL <201 [facility] Comment on above: Cholesterol level, D esirable <200 mg/dLBorderline high cholesterol 200-239 mg/dLHigh cholesterol >=240 mg/dLRecommendations of the NCEP Adult Treatment Panel for the following risk-cutoff thresholds for the [place] population. Serum or plasma urea nitroge n measurement (mass/volume)Ordered By: Victor M Rojas on 12-18-2024 Urea nitrogen [Mass/Vol] 32 mg/dL High 4-19 [facility] Sodium levelOrdered By: Brandon Rojas on 12-18-2024 Sodium [Moles/Vol] 138 mmol/L 133-145 [facility] TSH DL <= 0.005 mIU/L QnOrde red By: Victor M Rojas on 12-18-2024 TSH Qn 1.380 uIU/mL 0.300-4.200 [facility] Total proteinOrdered By: Prosper Rojas on 12-18-2024 Protein [Mass/Vol] 6.8 g/dL 5.9-8.4 [facility] Triglycerides measurementOrd ered By: Victor M Rojas on 12-18-2024 Triglyceride [Mass/Vol] 125 mg/dL <199 [facility] Comment on above: The drugs N-Acetylcy steine and Metamizole may falsely depress this assay. Normal range: <150 mg/dLBorderline High: 150-199 mg/dLHigh: 200-499 mg/dLVery High: >500 mg/dL White blood cell (WBC) count Ordered By: Victor M Rojas on 12-18-2024 WBC (Bld) [#/Vol] 7.7 10*3/uL 4.4-11.0 [facility] Anion gap in Serum or Plasma Ordered By: Victor M Rojas on 11-20-2024 Anion gap [Moles/Vol] 13 mmol/L 5-15 [facility] BUN/creatinine ratioOrdered By: Victor M Rojas on 11-20-2024 Urea nitrogen/Creatinine [Mass ratio] 16.5 mg/mg 10-20 [facility] Carbon dioxide, total [Moles /volume] in Central venous bloodOrdered By: Victor M Rojas on 11-20-2024 CO2 [Moles/Vol] 20.9 mmol/L Low 21.0-32.0 [facility] Chloride assayOrdered By: Stefan Rojas on 11-20-2024 Chloride [Moles/Vol] 104 mmol/L 98-108 [facility] Glomerular filtration rate ( GFR) estimation/1.73 sq m using serum, plasma, or whole bOrdered By: Victor M Rojas on 11-20-2024 GFR/1.73 sq M.predicted among non-blacks MDRD (S/P/Bld) [Vol rate/Area] 38 mL/min/{1.73_m2} Low >60 [facility] Comment on above: mL/min/1.73m2 CKD-EP I Creatinine Equation (2020) Potassium measurement (mass/ volume)Ordered By: Victor M Rojas on 11-20-2024 Potassium (Unsp spec) [Mass/Vol] 4.2 mmol/L 3.3-5.1 [facility] Serum creatinine measurement (mass/volume)Ordered By: Victor M Rojas on 11-20-2024 Creatinine [Mass/Vol] 1.75 mg/dL High 0.70-1.20 [facility] Serum glucose measurement (m ass/volume)Ordered By: Victor M Rojas on 11-20-2024 Glucose [Mass/Vol] 130 mg/dL High 70-99 [facility] Serum or plasma albumin akash urement (mass/volume)Ordered By: Victor M Rojas on 11-20-2024 Albumin [Mass/Vol] 3.5 g/dL 3.4-4.8 [facility] Serum or plasma calcium akash urement (mass/volume)Ordered By: Victor M Rojas on 11-20-2024 Calcium [Mass/Vol] 8.8 mg/dL 7.6-11.0 [facility] Serum or plasma urea nitroge n measurement (mass/volume)Ordered By: Victor M Rojas on 11-20-2024 Urea nitrogen [Mass/Vol] 29 mg/dL High 4-19 [facility] Sodium levelOrdered By: Brandon diopsammi Bob on 11-20-2024 Sodium [Moles/Vol] 139 mmol/L 133-145 [facility] Calculated very low density lipoprotein (VLDL) cholesterol measurementOrdered By: Christina Whipple on 11-07-2024 Calculated very low density lipoprotein (VLDL) cholesterol measurement 34 mg/dL 5-40 [facility] LDL calc ser/plasOrdered By: Christina Whipple on 11-07-2024 Cholesterol in LDL [Mass/Vol] 43 mg/dL [facility] Comment on above: Zksbepiwcg=967-076 m g/dL & Higher Dtbt=176 mg/dL or greater Screening total cholesterol/ high density lipoprotein (HDL) cholesterol ratioOrdered By: Christina Whipple on 11-07-2024 Cholesterol.total/Cholest giuliana in HDL [Mass ratio] 4.60 {ratio} [facility] Serum or plasma cholesterol in HDL measurement (mass/volume)Ordered By: Christina Whipple on 11-07-2024 Cholesterol in HDL [Mass/Vol] 21 mg/dL Low >40 [facility] Comment on above: National Cholesterol Education Program (NCEP) guidelines:<40 mg/dL: Low HDL-cholesterol (major risk factor for CHD)>= 60 mg/dL: High HDL-cholesterol (negative risk factor for CHD)HDL-cholesterol is affected by a number of factors, e.g. smoking, exercise, hormones, sex and age. Serum or plasma cholesterol measurement (mass/volume)Ordered By: Christina Whipple on 11-07-2024 Cholesterol [Mass/Vol] 99 mg/dL <201 [facility] Comment on above: Cholesterol level, D esirable <200 mg/dLBorderline high cholesterol 200-239 mg/dLHigh cholesterol >=240 mg/dLRecommendations of the NCEP Adult Treatment Panel for the following risk-cutoff thresholds for the [place] population. Triglycerides measurementOrd ered By: Christina Whipple on 11-07-2024 Triglyceride [Mass/Vol] 171 mg/dL <199 [facility] Comment on above: The drugs N-Acetylcy steine and Metamizole may falsely depress this assay. Normal range: <150 mg/dLBorderline High: 150-199 mg/dLHigh: 200-499 mg/dLVery High: >500 mg/dL Anion gap in Serum or Plasma Ordered By: Victor M Rojas on 10-23-2024 Anion gap [Moles/Vol] 12 mmol/L 5-15 [facility] BUN/creatinine ratioOrdered By: Victor M Rojas on 10-23-2024 Urea nitrogen/Creatinine [Mass ratio] 21.7 mg/mg High 10- [facility] Carbon dioxide, total [Moles /volume] in Central venous bloodOrdered By: Victor M Rojas on 10-23-2024 CO2 [Moles/Vol] 19.8 mmol/L Low 21.0-32.0 [facility] Chloride assayOrdered By: Stefan Rojas on 10-23-2024 Chloride [Moles/Vol] 106 mmol/L 98-108 [facility] Glomerular filtration rate ( GFR) estimation/1.73 sq m using serum, plasma, or whole bOrdered By: Victor M Rojas on 10-23-2024 GFR/1.73 sq M.predicted among non-blacks MDRD (S/P/Bld) [Vol rate/Area] 39 mL/min/{1.73_m2} Low >60 [facility] Comment on above: mL/min/1.73m2 CKD-EP I Creatinine Equation (2020) Potassium measurement (mass/ volume)Ordered By: Victor M Rojas on 10-23-2024 Potassium (Unsp spec) [Mass/Vol] 4.0 mmol/L 3.3-5.1 [facility] Serum creatinine measurement (mass/volume)Ordered By: Victor M Darwinluissammi on 10-23-2024 Creatinine [Mass/Vol] 1.73 mg/dL High 0.70-1.20 [facility] Serum glucose measurement (m ass/volume)Ordered By: Victor M Rojas on 10-23-2024 Glucose [Mass/Vol] 129 mg/dL High 70-99 [facility] Serum or plasma albumin akash urement (mass/volume)Ordered By: Victor M Brennersammi on 10-23-2024 Albumin [Mass/Vol] 3.3 g/dL Low 3.4-4.8 [facility] Serum or plasma calcium akash urement (mass/volume)Ordered By: Victor M Rojas on 10-23-2024 Calcium [Mass/Vol] 8.6 mg/dL 7.6-11.0 [facility] Serum or plasma urea nitroge n measurement (mass/volume)Ordered By: Victor M Rojas on 10-23-2024 Urea nitrogen [Mass/Vol] 38 mg/dL High 4-19 [facility] Sodium levelOrdered By: Brandon Rojas on 10-23-2024 Sodium [Moles/Vol] 137 mmol/L 133-145 [facility] Cardiology Visit Reporton Cardiology Visit Report [facility] [address] [place] [address] OFFICE VISIT Date of Service: 10/16/24 MR#: [id number] Acct: [id number] Name: ELIZABETH MODI Rep #: [id number] : 1940 Provider: GILL Connor Age/Sex: 84/M Location: [facility] Status: Signed HPI HPI History of Present [...] x 1 in December of 2021 at [facility] in [place]. He had a left internal mammary artery to left anterior descending coronary artery. He is residing at a OR. From a cardiac standpoint, patient is doing [...] near-syncope or syncope. He is in a . Intake Vital Signs 01/11/24 07:47 10/15/24 16:00 10/16/24 07:59 Height 5 ft 6 in 5 ft 6 in 5 ft 6 in Weight: 180 lb BMI 29.0 BP 131/74 H Blood Pressure Location Rt brachial Position Sitting Respiration 18 Pulse 64 Pulse Source NIBP Intake Visit Reasons: [facility] WANTED SOONER THAN DECEMBER SO DIDN'T WANT 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 Vp Product Marketing Required: No Accompanied by: Caregiver Is patient [...] PFSH Medic (more content not included)... Normal [facility] Elbow min 3 Viewson 10-16-19 Elbow min 3 Views [facility] Imaging Services [address] [place] [address] Elbow min 3 Views MR#: [id number] Acct: [id number] Name: ELIZABETH MODI Rep #: [id number] : 1940 M 84 From: Edy Kapadia MD PCP: Dr. Diana Salmeron MD Status: REG ER Study: Elbow min 3 Views Date of Exam: 10/15/24 Exam# [id number] Ordering Dr: Jesse Angel DO EXAM: Left elbow CLINICAL HISTORY: Injury, pain COMPARISON: None TECHNIQUE: Three views FINDINGS: No acute fracture or dislocation. Moderate joint space narrowing and osteophyte formation consistent with moderate arthrosis. Normal soft tissues. RAD/Elbow min 3 Views IMPRESSION: No acute fracture or dislocation. Moderate arthrosis. Reading Location: [id number] CC: Dr. Diana Salmeron MD; Dr. Jesse Angel DO Electron Microscopist: Signed Normal [facility] Emergency Department Summary on 10-15-2024 Emergency Department Summary [facility] Medical Records Department [address] [place] [address] Emergency Department Summary 10/15/24 MR#: [id number] Acct: [id number] Name: ELIZABETH MODI Rep #: [id number] : 1940 84 From: Jesse Angel DO [...] of his last tetanus. 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 alcohol intake: current alcohol intake frequency: a few times a month details: Prior heavier, now occasional. substance use type: does not use ROS ROS ED Constitutional Constitutional ED: Denies chills or fever(s) Eyes E (more content not included)... Normal [facility] Orb Sella Post Fossa Ear w/o on 10-15-2024 Orb Sella Post Fossa Ear w/o [facility] Imaging Services [address] [place] [address] Orb Sella Post Fossa Ear w/o MR#: [id number] Acct: [id number] Name: ELIZABETH MODI Rep #: [id number] : 1940 M 84 From: Edy Kapadia MD PCP: Dr. Diana Salmeron MD Status: [facility] Study: Orb Sella Post Fossa Ear w/o Date of Exam: Exam# [id number] Ordering Dr: Jesse Angel DO PROCEDURE: ORB [...] ORBITAL FRACTURE OR RETROBULBAR HEMATOMA. Reading Location: [facility] CC: Dr. Diana Salmeron MD; Dr. Jesse Angel DO Electron Microscopist: Signed Normal [facility] Bacteria Ur Culton 5 Bacteria identified Cx [...] straight catheterization for???urine???collecti on. Normal [facility] Comment on above: Performed By: #### 6 30-4 #### [facility] CLIA [id number] [address] [place] [address] STATES OF [facility] CNOVon 10-01-2024 CNOV Office Visit (UROLWS ) ELIZABETH MODI ([id number]) 1940 M T Date Time Provider Department 10/01/24 1:00 PM [...] Nikolai Portillo PA-C 10/01/2024 2:58 PM Signed [facility] [place] [facility] PATIENT CLINIC NOTE (M) Some elements copied [...] (ADULTS MULTIVITAMIN ORAL) Take by mouth. vit C,Z-Sf-ejufq-lutein-ze axan (PRESERVISION AREDS-2) 250-90-40-1 mg Take 1 [...] (more content not included)... Normal [facility] Beau 10-01-2024 [place]UR[place] Telephone (UROLWS) ELIZABETH MODI ([id number]) 1940 M [facility] Date Time Provider Department 10/01/24 NIKOLAI CONNOR [...] Diagnosis:Gross hematuria [R31.0] Order(s):CT UROGRAM WO/W IVCON [[id number]] Order #: [id number] FUTURE iv contrast (will be provided with [...] MULTIVITAMIN ORAL) Take by mouth. - vit C,Q-Hx-mpjec-lutein-ze axan (PRESERVISION AREDS-2) 250-90-40-1 mg Take 1 [...] (more content not included)... Normal [facility] Anion gap in Serum or Plasma Ordered By: Victor M Rojas on 09-18-2024 Anion gap [Moles/Vol] 14 mmol/L 5- [facility] BUN/creatinine ratioOrdered By: Victor M Rojas on 09-18-2024 Urea nitrogen/Creatinine [Mass ratio] 14.2 mg/mg 10- [facility] Bilirubin, totalOrdered By: Victor M Rojas on 09-18-2024 Bilirubin [Mass/Vol] 0.55 mg/dL 0.00-1.30 [facility] Calculated very low density lipoprotein (VLDL) cholesterol measurementOrdered By: Victor M Rojas on 09-18-2024 Calculated very low density lipoprotein (VLDL) cholesterol measurement 38 mg/dL - [facility] VLDL Cholesterol 38 mg/dL - [facility] Carbon dioxide, total [Moles /volume] in Central venous bloodOrdered By: Victor M Rojas on 09-18-2024 CO2 [Moles/Vol] 19.8 mmol/L Low 21.0-32.0 [facility] Chloride assayOrdered By: Stefan Rojas on 09-18-2024 Chloride [Moles/Vol] 102 mmol/L 98-108 [facility] Erythrocyte distribution wid th (RBC) [Ratio]Ordered By: Victor M Rojas on 09-18-2024 Erythrocyte distribution width (RBC) [Entitic vol] 47.1 fL High 35.1-43.9 [facility] Erythrocyte distribution wid th ratioOrdered By: Victor M Rojas on 09-18-2024 Erythrocyte distribution width (RBC) [Ratio] 14.4 % 11.6-14.6 [facility] Erythrocyte distribution wid th standard deviationOrdered By: Victor M Rojas on 09-18-2024 Erythrocyte distribution width (RBC) [Ratio] 47.1 fl High 35.1-43.9 [facility] GFR/1.73 sq M.predicted jacobo g non-blacks MDRD (S/P/Bld) [Vol rate/Area]Ordered By: Victor M Rojas on 09-18-2024 Estimated GFR (MDRD) Non-Af Amer 27 Low >60 [facility] Comment on above: mL/min/1.73m2 CKD-EP I Creatinine Equation (2020) Glomerular filtration rate ( GFR) estimation/1.73 sq m using serum, plasma, or whole bOrdered By: Victor M Rojas on 09-18-2024 GFR/1.73 sq M.predicted among non-blacks MDRD (S/P/Bld) [Vol rate/Area] 27 mL/min/{1.73_m2} Low >60 [facility] Comment on above: mL/min/1.73m2 CKD-EP I Creatinine Equation (2020) Hematocrit Auto (Bld) [Volum e fraction]Ordered By: Victor M Rojas on 09-18-2024 Hematocrit (Bld) [Volume fraction] 41.2 % 40-54 [facility] Hemoglobin A1c percentageOrd ered By: Victor M Rojas on 09-18-2024 HbA1c (Bld) [Mass fraction] 11.3 % >5.7 [facility] Hemoglobin measurementOrdere d By: Victor M Rojas on 09-18-2024 Hemoglobin (Bld) [Mass/Vol] 13.5 g/dL 13.0-16.5 [facility] LDL calc ser/plasOrdered By: Victor M Rojas on 09-18-2024 Cholesterol in LDL [Mass/Vol] 44 mg/dL [facility] Comment on above: Hsuppjrhrb=256-916 m g/dL & Higher Uvev=265 mg/dL or greater LDL Cholesterol, Calculated 44 mg/dL [facility] Comment on above: Foetngkene=347-706 m g/dL & Higher Vzsp=375 mg/dL or greater Laboratory - Chemistry and C hemistry - challengeOrdered By: Victor M Rojas on 09-18-2024 AST [Catalytic activity/Vol] 43 U/L High <38 [facility] Comment on above: Hemolysis present, R esults could be affected. MCV (mean corpuscular volume ) determinationOrdered By: Victor M Rojas on 09-18-2024 MCV (RBC) [Entitic vol] 89.6 fL 80-94 [facility] Mean corpuscular hemoglobin (MCH) determinationOrdered By: Victor M Rojas on 09-18-2024 MCH (RBC) [Entitic mass] 29.3 pg 27.0-32.0 [facility] Mean corpuscular hemoglobin concentration (MCHC) determinationOrdered By: Victor M Rojas on 09-18-2024 MCHC (RBC) [Mass/Vol] 32.8 g/dL 32-36 [facility] Mean platelet volume determi nationOrdered By: Victor M Rojas on 09-18-2024 Platelet mean volume (Bld) [Entitic vol] 12.0 fL 6.2-12.0 [facility] Platelet countOrdered By: Stefan Rojas on 09-18-2024 Platelets (Bld) [#/Vol] 209 10*3/uL 150-450 [facility] Potassium (Unsp spec) [Mass/ Vol]Ordered By: Victor M Rojas on 09-18-2024 Potassium [Moles/Vol] 4.1 mmol/L 3.3-5.1 [facility] Comment on above: Hemolysis present, R esults could be affected. Potassium measurement (mass/ volume)Ordered By: Victor M Rojas on 09-18-2024 Potassium (Unsp spec) [Mass/Vol] 4.1 mmol/L 3.3-5.1 [facility] Comment on above: Hemolysis present, R esults could be affected. RBC Auto (Bld) [#/Vol]Ordere d By: Victor M Rojas on 09-18-2024 RBC (Bld) [#/Vol] 4.60 10*6/uL 4.6-6.2 [facility] Screening total cholesterol/ high density lipoprotein (HDL) cholesterol ratioOrdered By: Victor M Rojas on 09-18-2024 Cholesterol.total/Cholest giuliana in HDL [Mass ratio] 4.29 {ratio} [facility] Serum creatinine measurement (mass/volume)Ordered By: Victor M Rojas on 09-18-2024 Creatinine [Mass/Vol] 2.35 mg/dL High 0.70-1.20 [facility] Serum globulin measurementOr dered By: Victor M Rojas on 09-18-2024 Globulin (S) [Mass/Vol] 3.4 g/dL 2.2-4.2 [facility] Serum glucose measurement (m ass/volume)Ordered By: Victor M Rojas on 09-18-2024 Glucose [Mass/Vol] 287 mg/dL High 70-99 [facility] Serum or plasma alanine mojica otransferase (ALT) measurementOrdered By: Victor M Rojas on 09-18-2024 ALT [Catalytic activity/Vol] 41 U/L <47 [facility] Serum or plasma albumin akahs urement (mass/volume)Ordered By: Victor M Rojas on 09-18-2024 Albumin [Mass/Vol] 3.4 g/dL 3.4-4.8 [facility] Serum or plasma albumin/glob ulin mass ratioOrdered By: Victor M Rojas on 09-18-2024 Albumin/Globulin [Mass ratio] 1.0 {ratio} 0.9-2.4 [facility] Serum or plasma alkaline marielos sphatase measurementOrdered By: Victor M Rojas on 09-18-2024 ALP [Catalytic activity/Vol] 113 U/L 40-129 [facility] Serum or plasma calcium akash urement (mass/volume)Ordered By: Victor M Rojas on 09-18-2024 Calcium [Mass/Vol] 9.0 mg/dL 7.6-11.0 [facility] Serum or plasma cholesterol in HDL measurement (mass/volume)Ordered By: Victor M Rojas on 09-18-2024 Cholesterol in HDL [Mass/Vol] 25 mg/dL Low >40 [facility] Comment on above: National Cholesterol Education Program (NCEP) guidelines:<40 mg/dL: Low HDL-cholesterol (major risk factor for CHD)>= 60 mg/dL: High HDL-cholesterol (negative risk factor for CHD)HDL-cholesterol is affected by a number of factors, e.g. smoking, exercise, hormones, sex and age. Serum or plasma cholesterol measurement (mass/volume)Ordered By: Victor M Rojas on 09-18-2024 Cholesterol [Mass/Vol] 108 mg/dL <201 [facility] Comment on above: Cholesterol level, D esirable <200 mg/dLBorderline high cholesterol 200-239 mg/dLHigh cholesterol >=240 mg/dLRecommendations of the NCEP Adult Treatment Panel for the following risk-cutoff thresholds for the [place] population. Serum or plasma urea nitroge n measurement (mass/volume)Ordered By: Victor M Rojas on 09-18-2024 Urea nitrogen [Mass/Vol] 33 mg/dL High 4-19 [facility] Sodium levelOrdered By: Brandon Rojas on 09-18-2024 Sodium [Moles/Vol] 135 mmol/L 133-145 [facility] TSH DL <= 0.005 mIU/L QnOrde red By: Victor M Rojas on 09-18-2024 Thyroid Stimulating Hormone (TSH) 3.520 uIU/mL 0.300-4.200 [facility] TSH Qn 3.520 uIU/mL 0.300-4.200 [facility] Total proteinOrdered By: Prosper Rojas on 09-18-2024 Protein [Mass/Vol] 6.7 g/dL 5.9-8.4 [facility] Triglycerides measurementOrd ered By: Victor M Rojas on 09-18-2024 Triglyceride [Mass/Vol] 192 mg/dL <199 [facility] Comment on above: The drugs N-Acetylcy steine and Metamizole may falsely depress this assay. Normal range: <150 mg/dLBorderline High: 150-199 mg/dLHigh: 200-499 mg/dLVery High: >500 mg/dL White blood cell (WBC) count Ordered By: Victor M Rojas on 09-18-2024 WBC (Bld) [#/Vol] 8.5 10*3/uL 4.4-11.0 [facility] Gastroenterology Visit Repor ton 09-06-2024 Gastroenterology Visit Report [facility] Gastroenterology [address] [place] [address] OFFICE VISIT Date of Service: 09/06/24 MR#: [id number] Acct: [id number] Name: ELIZABETH MODI Rep #: [id number] : 1940 Provider: GILL Jefferson Age/Sex: 84/M Location: [facility] Status: Signed Intake Vital Signs 01/11/24 07:47 [...] is experiencing diarrhea only once in awhile. 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 alcohol intake: current alcohol intake frequency: a few times a month details: Prior heavier, now occasional. substance use type: does not use HPI HPI Chief Complaint: fecal incontinence Details: ELIZABETH MODI, is a 84 M who presents to the office today for f/u. [facility] hospitalization 12.14.22-12.17.22 for management of choledocholithiasis, calculous [...] from biliary tree. Negative for malignancy. Biochemical 2..24 LTCF AST 49-ALT 48-AP 123-t. bili 0.4 last OV 06.06.24 Pt feeling well. Has some issues with fecal incontincence. Switch cholstyramine to colestipol 2 grams daily. CMP ordered. 06.07.24; LFTs stable OV 3..25; Pt has been doing well. He is [...] Appearance: average body habitus and well nourished HENIN Head: normal to ins (more content not included)... Normal [facility] Anion gap in Serum or Plasma Ordered By: Victor M Rojas on 08-21-2024 Anion gap [Moles/Vol] 14 mmol/L 5-15 [facility] BUN/creatinine ratioOrdered By: Victor M Rojas on 08-21-2024 Urea nitrogen/Creatinine [Mass ratio] 18.2 mg/mg 10-20 [facility] Carbon dioxide, total [Moles /volume] in Central venous bloodOrdered By: Victor M Rojas on 08-21-2024 CO2 [Moles/Vol] 20.5 mmol/L Low 21.0-32.0 [facility] Chloride assayOrdered By: Stefan Rojas on 08-21-2024 Chloride [Moles/Vol] 102 mmol/L 98-108 [facility] GFR/1.73 sq M.predicted jacobo g non-blacks MDRD (S/P/Bld) [Vol rate/Area]Ordered By: Victor M Rojas on 08-21-2024 Estimated GFR (MDRD) Non-Af Amer 31 Low >60 [facility] Comment on above: mL/min/1.73m2 CKD-EP I Creatinine Equation (2020) Glomerular filtration rate ( GFR) estimation/1.73 sq m using serum, plasma, or whole bOrdered By: Victor M Rojas on 08-21-2024 GFR/1.73 sq M.predicted among non-blacks MDRD (S/P/Bld) [Vol rate/Area] 31 mL/min/{1.73_m2} Low >60 [facility] Comment on above: mL/min/1.73m2 CKD-EP I Creatinine Equation (2020) Potassium (Unsp spec) [Mass/ Vol]Ordered By: Victor M Rojas on 08-21-2024 Potassium [Moles/Vol] 4.3 mmol/L 3.3-5.1 [facility] Potassium measurement (mass/ volume)Ordered By: Victor M Rojas on 08-21-2024 Potassium (Unsp spec) [Mass/Vol] 4.3 mmol/L 3.3-5.1 [facility] Serum creatinine measurement (mass/volume)Ordered By: Victor M Rojas on 08-21-2024 Creatinine [Mass/Vol] 2.07 mg/dL High 0.70-1.20 [facility] Serum glucose measurement (m ass/volume)Ordered By: Victor M Rojas on 08-21-2024 Glucose [Mass/Vol] 198 mg/dL High 70-99 [facility] Serum or plasma albumin akash urement (mass/volume)Ordered By: Victor M Rojas on 08-21-2024 Albumin [Mass/Vol] 3.3 g/dL Low 3.4-4.8 [facility] Serum or plasma calcium akash urement (mass/volume)Ordered By: Victor M Rojas on 08-21-2024 Calcium [Mass/Vol] 8.8 mg/dL 7.6-11.0 [facility] Serum or plasma urea nitroge n measurement (mass/volume)Ordered By: Victor M Rojas on 08-21-2024 Urea nitrogen [Mass/Vol] 38 mg/dL High 4-19 [facility] Serum phosphorus measurement Ordered By: Victor M Rojas on 08-21-2024 Phosphorus Level 4.2 mg/dL 2.7-4.5 [facility] Sodium levelOrdered By: Brandon Rojas on 08-21-2024 Sodium [Moles/Vol] 136 mmol/L 133-145 [facility] Random urine microalbumin me asurementOrdered By: Victor M Rojas on 08-01-2024 Urine Random Microalbumin 583.0 mg/L NO RANGE EST. [facility] Urine albumin/creatinine rat io for detection of microalbuminuriaOrdered By: Victor M Rojas on 08-01-2024 Urine Microalbumin/Creatinine Ratio 1371.8 mg/g CRE High <30 [facility] Urine creatinine measurement (mass/volume)Ordered By: Victor M Rojas on 08-01-2024 Creatinine (U) [Mass/Vol] 42.50 mg/dL NO RANGE EST. [facility] Blood urea nitrogen (BUN)/cr eatinine ratioOrdered By: Victor M Rojas on 07-24-2024 Urea nitrogen/Creatinine [Mass ratio] 20.5 mg/mg High 10-20 [facility] Carbon dioxide measurementOr dered By: Victor M Rojas on 07-24-2024 CO2 [Moles/Vol] 21.0 mmol/L 21.0-32.0 [facility] Chloride measurementOrdered By: Victor M Rojas on 07-24-2024 Chloride [Moles/Vol] 106 mmol/L 98-107 [facility] Estimated glomerular filtrat ion rate (GFR) AmericanOrdered By: Victor M Rojas on 07-24-2024 Estimated GFR (MDRD) Amer 44 mL/min Low >60 [facility] Comment on above: GFR Calc Glomerular filtration rate ( GFR) estimationOrdered By: Victor M Rojas on 07-24-2024 Estimated GFR (MDRD) Non-Af Amer 36 mL/min Low >60 [facility] Comment on above: Non- GFR Calc GFR/1.73 sq M.predicted among non-blacks MDRD (S/P/Bld) [Vol rate/Area] 36 mL/min/{1.73_m2} Low >60 [facility] Comment on above: Non- GFR Calc Glucose measurementOrdered B y: Victor M Brennere on 07-24-2024 Glucose [Mass/Vol] 230 mg/dL High 74-106 [facility] Comment on above: Glucose result great er than or equal to 200 mg/dLsuggests DIABETES MELLITUS per A.D.A. criteria. Hemoglobin A1c percentageOrd ered By: Brandonleonaprice Granadosluissammi on 07-24-2024 HbA1c (Bld) [Mass fraction] 8.3 % High 3.8-5.6 [facility] Comment on above: Normal < 5.7 % Predi abetic 5.7 - 6.4 % Diabetic >or= 6.5 % Please note range changes. Phosphorus measurementOrdere d By: Victor M Rojas on 07-24-2024 Phosphorus Level 3.4 mg/dL 2.5-4.9 [facility] Potassium measurementOrdered By: Victor M Rojas on 07-24-2024 Potassium [Moles/Vol] 4.3 mmol/L 3.5-5.1 [facility] Serum or plasma albumin akash urement (mass/volume)Ordered By: Victor M Rojas on 07-24-2024 Albumin [Mass/Vol] 2.7 g/dL Low 3.2-5.0 [facility] Serum or plasma calcium akash urement (mass/volume)Ordered By: Victor M Rojas on 07-24-2024 Calcium [Mass/Vol] 8.2 mg/dL Low 8.5-10.1 [facility] Serum or plasma creatinine m easurement (mass/volume)Ordered By: Victor M Rojas on 07-24-2024 Creatinine [Mass/Vol] 1.90 mg/dL High 0.70-1.30 [facility] Comment on above: The validity of the calculated GFR & GFRAA in patients over 70 years has not been determined. Clinical correlation is essential. Serum or plasma urea nitroge n measurement (mass/volume)Ordered By: Victor M Rojas on 07-24-2024 Urea nitrogen [Mass/Vol] 39 mg/dL High 7-18 [facility] Sodium levelOrdered By: Brandon perezkandis Bob on 07-24-2024 Sodium [Moles/Vol] 135 mmol/L Low 136-[address] [facility] [address] UROGRAM WO/W IVCONon 01-1 CT UROGRAM WO/W IVCON * * *Final Report* * * DATE OF EXAM: Jun 28 2024 2:26PM [facility] 0560 - CT UROGRAM WO/W IVCON [...] be communicated with the ordering provider via [employer] staff message or phone message by [employer] within 2 business days of report finalization. --END OF FINDING-- Electron Microscopist: VERITOB Transcribe Date/Time: Jul 01 2024 9:40P Dictated by : JARAD ARCOS MD This examination was interpreted and the report reviewed and electronically signed by: JARAD ACROS MD on Jul 01 2024 9:53PM EST [id number] [id number] Invalid Interpretation Code [facility] Estimated glomerular filtrat ion rate (GFR) AmericanOrdered By: Stefanradha Rojas on 06-27-2024 Estimated GFR (MDRD) Amer 37 mL/min Low >60 [facility] Comment on above: GFR Calc Glomerular filtration rate ( GFR) estimationOrdered By: Brandontianna Granadosluissammi on 06-27-2024 Estimated GFR (MDRD) Non-Af Amer 31 mL/min Low >60 [facility] Comment on above: Non- GFR Calc Serum or plasma creatinine m easurement (mass/volume)Ordered By: Stefanradha Rojas on 06-27-2024 Creatinine [Mass/Vol] 2.20 mg/dL High 0.70-1.30 [facility] Comment on above: The validity of the calculated GFR & GFRAA in patients over 70 years has not been determined. Clinical correlation is essential. Beau 06-21-2024 JONAS Telephone (UROLWS) ELIZABETH MODI ([id number]) 1940 [facility] Date Time Provider Department 06/21/24 NIKOLAI CONNOR During your visit today, we recorded the following information about you: Anaid Payne MA 06/21/2024 4:28 PM Signed ----- Message from Nikolai Connor PA-C sent at 06/21/2024 3:54 PM EST ----- No infection in the urine No cancer cells in urine, please continue the rest of the testing Nikolai Connor [facility] [place], Susan Lopez MA 06/25/2024 8:47 AM Signed [...] MULTIVITAMIN ORAL) Take by mouth. - vit C,M-Kl-exdqr-lutein-ze axan (PRESERVISION AREDS-2) 250-90-40-1 mg Take 1 [...] LUKE TAYLOR on 07/09/24 Normal [facility] Absolute neutrophil countOrd ered By: Victor M Rojas on 06-20-2024 Neutrophils (Bld) [#/Vol] 5.5 10*3/uL 2.0-7.7 [facility] Albumin to globulin ratioOrd ered By: Victor M Rojas on 06-20-2024 Albumin/Globulin [Mass ratio] 0.7 {ratio} Low 0.9-2.4 [facility] Basophil percentageOrdered B y: Victor M Rojas on 06-20-2024 Basophils/100 WBC (Bld) 0.3 % 0-1 [facility] Bilirubin, totalOrdered By: Victor M Rojas on 06-20-2024 Bilirubin [Mass/Vol] 0.70 mg/dL 0.20-1.00 [facility] Comment on above: For patients on eltr ombopag therapy, use of Dimension [place] TBIL is not recommended. Blood urea nitrogen (BUN)/cr eatinine ratioOrdered By: Victor M Rojas on 06-20-2024 Urea nitrogen/Creatinine [Mass ratio] 19.0 mg/mg 10-20 [facility] Carbon dioxide measurementOr dered By: Victor M Rojas on 06-20-2024 CO2 [Moles/Vol] 24.0 mmol/L 21.0-32.0 [facility] Chloride measurementOrdered By: Victor M Rojas on 06-20-2024 Chloride [Moles/Vol] 104 mmol/L 98-107 [facility] Eosinophil percentageOrdered By: Victor M Rojas on 06-20-2024 Eosinophils/100 WBC (Bld) 2.5 % 0-5 [facility] Erythrocyte distribution wid th (RBC) [Ratio]Ordered By: Victor M Rojas on 06-20-2024 Erythrocyte distribution width (RBC) [Entitic vol] 47.8 fL High 35.1-43.9 [facility] Erythrocyte distribution wid th ratioOrdered By: Victor M Rojas on 06-20-2024 Erythrocyte distribution width (RBC) [Ratio] 14.7 % High 11.6-14.6 [facility] Estimated glomerular filtrat ion rate (GFR) AmericanOrdered By: Victor M Rojas on 06-20-2024 Estimated GFR (MDRD) Amer 51 mL/min Low >60 [facility] Comment on above: GFR Calc Glomerular filtration rate ( GFR) estimationOrdered By: Victor M Rojas on 06-20-2024 Estimated GFR (MDRD) Non-Af Amer 42 mL/min Low >60 [facility] Comment on above: Non- GFR Calc Glucose measurementOrdered B y: Victor M Rojas on 06-20-2024 Glucose [Mass/Vol] 190 mg/dL High 74-106 [facility] Comment on above: Fasting Glucose resu lt greater than or equal to 126 mg/dL suggests DIABETES MELLITUS per A.D.A. criteria. Hematocrit Auto (Bld) [Volum e fraction]Ordered By: Victor M Rojas on 06-20-2024 Hematocrit (Bld) [Volume fraction] 42.8 % 40-54 [facility] Hemoglobin A1c percentageOrd ered By: Victor M Rojas on 06-20-2024 HbA1c (Bld) [Mass fraction] 8.3 % High 3.8-5.6 [facility] Comment on above: Normal < 5.7 % Predi abetic 5.7 - 6.4 % Diabetic >or= 6.5 % Please note range changes. Hemoglobin measurementOrdere d By: Victor M Rojas on 06-20-2024 Hemoglobin (Bld) [Mass/Vol] 13.6 g/dL 13.0-16.5 [facility] High density lipoprotein (HD L) measurementOrdered By: Victor M Rojas on 06-20-2024 Cholesterol in HDL [Mass/Vol] 29 mg/dL Low >40 [facility] Comment on above: The drugs N-Acetylcy steine and Metamizole may falsely depress this assay. Reference Range HDL <40 mg/dL Low HDL Cholesterol HDL >or= 60 mg/dL High HDL Cholesterol Immature granulocytes/100 WB C Auto (Bld)Ordered By: Victor M Rojas on 06-20-2024 Immature granulocytes/100 WBC (Bld) 1.900 % High 0.0-0.9 [facility] Comment on above: IG% - Immature Granu locytes (promyelocytes, myelocytes and metamyelocytes) > 1% indicates that a LEFT SHIFT is Present. Laboratory - Chemistry and C hemistry - challengeOrdered By: Victor M Rojas on 06-20-2024 AST [Catalytic activity/Vol] 37 U/L 15-37 [facility] Comment on above: Slight Hemolysis, Re sult may be falsely increased. Low density lipoprotein (LDL ) cholesterol measurementOrdered By: Victor M Rojas on 06-20-2024 Cholesterol in LDL [Mass/Vol] 46 mg/dL 0-130 [facility] Lymphocytes Auto (Unsp spec) [#/Vol]Ordered By: Victor M Rojas on 06-20-2024 Lymphocytes (Bld) [#/Vol] 1.97 10*3/uL 0.83-4.5 1 [facility] Lymphocytes/100 WBC Auto (Un sp spec)Ordered By: Victor M Rojas on 06-20-2024 Lymphocytes/100 WBC (Bld) 21.8 % 19-41 [facility] MCV (mean corpuscular volume ) determinationOrdered By: Victor M Rojas on 06-20-2024 MCV (RBC) [Entitic vol] 89.9 fL 80-94 [facility] Mean corpuscular hemoglobin (MCH) determinationOrdered By: Victor M Rojas on 06-20-2024 MCH (RBC) [Entitic mass] 28.6 pg 27.0-32.0 [facility] Mean corpuscular hemoglobin concentration (MCHC) determinationOrdered By: Victor M Rojas on 06-20-2024 MCHC (RBC) [Mass/Vol] 31.8 g/dL Low 32-36 [facility] Mean platelet volume determi nationOrdered By: Victor M Rojas on 06-20-2024 Platelet mean volume (Bld) [Entitic vol] 11.9 fL 6.2-12.0 [facility] Monocyte percentageOrdered B y: Victor M Rojas on 06-20-2024 Monocytes/100 WBC (Bld) 13.0 % High 0-10 [facility] Neutrophil percentageOrdered By: Victor M Rojas on 06-20-2024 Neutrophils/100 WBC (Bld) 60.5 % 47-70 [facility] Nucleated red blood cell per centageOrdered By: Victor M Rojas on 06-20-2024 Nucleated RBC/100 WBC (Bld) [Ratio] 0 % 0-5 [facility] Platelet countOrdered By: Stefan Rojas on 06-20-2024 Platelets (Bld) [#/Vol] 239 10*3/uL 150-450 [facility] Potassium measurementOrdered By: Victor M Rojas on 06-20-2024 Potassium [Moles/Vol] 4.2 mmol/L 3.5-5.1 [facility] Comment on above: Slight Hemolysis, Re sult may be falsely increased. RBC Auto (Bld) [#/Vol]Ordere d By: Victor M Rojas on 06-20-2024 RBC (Bld) [#/Vol] 4.76 10*6/uL 4.6-6.2 [facility] Serum anion gap measurementO rdered By: Victor M Rojas on 06-20-2024 Anion gap [Moles/Vol] 8 mmol/L 5-15 [facility] Serum globulin measurementOr dered By: Victor M Rojas on 06-20-2024 Globulin (S) [Mass/Vol] 3.9 g/dL 2.2-4.2 [facility] Serum or plasma alanine mojica otransferase (ALT) measurementOrdered By: Victor M Rojas on 06-20-2024 ALT [Catalytic activity/Vol] 45 U/L 16-61 [facility] Serum or plasma albumin akash urement (mass/volume)Ordered By: Victor M Rojas on 06-20-2024 Albumin [Mass/Vol] 2.8 g/dL Low 3.2-5.0 [facility] Serum or plasma alkaline marielos sphatase measurementOrdered By: Victor M Rojas on 06-20-2024 ALP [Catalytic activity/Vol] 123 U/L High 45-117 [facility] Serum or plasma calcium akash urement (mass/volume)Ordered By: Victor M Rojas on 06-20-2024 Calcium [Mass/Vol] 8.4 mg/dL Low 8.5-10.1 [facility] Serum or plasma cholesterol measurement (mass/volume)Ordered By: Victor M Rojas on 06-20-2024 Cholesterol [Mass/Vol] 104 mg/dL <200 [facility] Comment on above: <200 mg/dL Desirable 200-240 mg/dL Borderline >240 mg/dL High Risk Serum or plasma creatinine m easurement (mass/volume)Ordered By: Victor M Rojas on 06-20-2024 Creatinine [Mass/Vol] 1.68 mg/dL High 0.70-1.30 [facility] Comment on above: The validity of the calculated GFR & GFRAA in patients over 70 years has not been determined. Clinical correlation is essential. Serum or plasma urea nitroge n measurement (mass/volume)Ordered By: Victor M Rojas on 06-20-2024 Urea nitrogen [Mass/Vol] 32 mg/dL High 7-18 [facility] Sodium levelOrdered By: Brandon Rojas on 06-20-2024 Sodium [Moles/Vol] 136 mmol/L 136-145 [facility] TSH QnOrdered By: Victor M Rojas on 06-20-2024 Thyroid Stimulating Hormone (TSH) 2.290 uIU/mL 0.358-3.740 [facility] Total proteinOrdered By: Prosper Rojas on 06-20-2024 Protein [Mass/Vol] 6.7 g/dL 6.4-8.2 [facility] Triglycerides measurementOrd ered By: Victor M Rojas on 06-20-2024 Triglyceride [Mass/Vol] 145 mg/dL <199 [facility] Comment on above: The drugs N-Acetylcy steine and Metamizole may falsely depress this assay.Serum Triglycerides Reference Interval Normal <150 mg/dL Borderline high 150 - 199 mg/dL High 200 - 499 mg/dL Very High > or = 500 mg/dL Very low density lipoprotein (VLDL) cholesterol measurementOrdered By: Victor M Rojas on 06-20-2024 VLDL Cholesterol 29 mg/dL 5-40 [facility] White blood cell (WBC) count Ordered By: Victor M Rojas on 06-20-2024 WBC (Bld) [#/Vol] 9.1 10*3/uL 4.4-11.0 [facility] Bacteria Ur Culton Bacteria identified Cx [...] straight catheterization for???urine???collecti on. Normal [facility] Comment on above: Performed By: #### 6 30-4 #### [facility] CLIA [id number] [address] [place] [address] OF [facility] CNOVon 06-18-2024 CNOV Office Visit (UROLWS ) ELIZABETH MODI ([id number]) 1940 M [facility] Date Time Provider Department 06/18/24 1:00 PM NIKOLAI CONNOR UROLWS During your visit today, we recorded the following information about you: Nikolai Connor PA-C 06/18/2024 4:05 PM Signed [facility] [place] [facility] NEW PATIENT CLINIC NOTE SERVICE DATE: June 18, 2024 NAME: Elizabeth Modi CHIEF COMPLAINT: Hematuria HISTORY OF PRESENT ILLNESS: Elizabeth Modi is a 83 year old male an new patient here for The patient reports Hematuria with a few episodes of hematuria Will get Urine sample today for culture and cytology Schedule Cystoscopy at [place] And CT Urogram at [place] We discussed the need for full hematuria [...] (ADULTS MULTIVITAMIN ORAL) Take by mouth. 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 Dr. Montgomery in [place] Congestive heart failure (HCC) DM (diab (more content not included)... Normal [facility] CREATININE BLDOrdered By: Amelia August on 06-18-2024 Creatinine [Mass/Vol] 1.37 mg/dL High 0.73 - 1.22 mg/dL [facility] GFR/1.73 sq M.predicted among non-blacks MDRD (S/P/Bld) [Vol rate/Area] 52 mL/min/{1.73_m2} Low - [facility] Comment on above: Estimated Glomerular [...] Interpretation and review of laboratory results Abnormal [facility] CREATININE BLDon 06-18-2024 Creatinine [Mass/Vol] 1.37 mg/dL High 0.73-1.22 [facility] Comment on above: Order Comment: Speci men Type: BLOOD SPECIMEN Ordering Facility: [facility] Address: [facility] [place] [id number] Performed By: #### C RET1 #### [facility] CLMS [id number] [address] [place] [address] [place] Creatinine and Glomerular filtration rate.predicted panel (S/P/Bld) 52 mL/min/1.73m??? Low >=60 [facility] Comment on above: Order Comment: Speci men Type: BLOOD SPECIMEN Ordering Facility: [facility] Address: [address] [place] [address] Result Comment: Alma Delia mated Glomerular Filtration [...] GFR. Performed By: #### C RET1 #### [facility] CLIA [id number] [address] [place] [address] [place] [facility] CYTOLOGY NON-GYNon CASE REPORT Normal [facility] Comment on above: Order Comment: Speci men Type: URINE SPECIMEN Ordering Facility: [facility] Address: [address] [place] [address] Result Comment: [facility] Cytology Report Case: [id number] Authorizing Provider: Nikolai Connor PA-C Collected: 06/18/2024 01:58 PM Ordering Location: Urology Received: 06/18/2024 02:43 PM Pathologist: Eric Sutherland MD Specimen: Urine, Cystoscopic Performed By: #### C YTONON #### [facility] CLIA [id number] [address] [place] [address] [place] CLINICAL HISTORY hematuria Normal [facility] Comment on above: Order Comment: Speci men Type: URINE SPECIMEN Ordering Facility: [facility] Address: [address] [place] [address] Performed By: #### C YTONON #### [facility] CLIA [id number] [address] [place] [address] [place] FINAL DIAGNOSIS Normal [facility] Comment on above: Order Comment: Speci men Type: URINE SPECIMEN Ordering Facility: [facility] Address: [address] [place] [address] Result Comment: A - Urine, Cystoscopic Negative for high-grade urothelial carcinoma. Acute and chronic inflammation. Blood. Performed By: #### C YTONON #### [facility] CLIA [id number] [address] [place] [address] [place] FINAL PERFORMING LAB Normal [facility] Comment on above: Order Comment: Speci men Type: URINE SPECIMEN Ordering Facility: [facility] Address: [address] [place] [address] Result Comment: Tech nical component, application security consultant screening performed at [facility], [address] [place] [address] CLIA# [id number] Diagnostic interpretation performed at [facility], [address] [place] [address] CLIA# [id number] Safety Relief Valve Technician: Kemal Campos M.D. Performed By: #### C YTONON #### [facility] CLIA [id number] [address] [place] [address] [place] GROSS DESCRIPTION Normal [facility] Comment on above: Order Comment: Speci men Type: URINE SPECIMEN Ordering Facility: [facility] Address: [address] [place] [address] Result Comment: A. U rine, Cystoscopic 8 cc cloudy red fluid . ThinPrep prepared. Performed By: #### C YTONON #### [facility] CLIA [id number] [address] [place] [address] [place] Bilirubin Test strip Ql (U)O rdered By: Victor M Rojas on 06-17-2024 Bilirubin Ql (U) Negative Negative [facility] Glucose Ql (U)Ordered By: Stefan Rojas on 06-17-2024 Glucose (U) [Mass/Vol] 1000 mg/dL High Normal [facility] Ketones Test strip Ql (U)Ord ered By: Victor M Rojas on 06-17-2024 Ketones Ql (U) Negative Negative [facility] Nitrite Test strip Ql (U)Ord ered By: Efmeganbe Bob on 06-17-2024 Nitrite Ql (U) Negative Negative [facility] Protein Test strip Ql (U)Ord ered By: Victor M Rojas on 06-17-2024 Protein Ql (U) 500 mg/dl High Negative [facility] Urine blood detectionOrdered By: Victor M Rojas on 06-17-2024 Urine Occult Blood 250 /ul High Negative [facility] Urine clarityOrdered By: Prosper Rojas on 06-17-2024 Clarity (U) Cloudy Clear [facility] Urine color determinationOrd ered By: Victor M Rojas on 06-17-2024 Color (U) Red Yellow [facility] Urine cultureOrdered By: Prosper Rojas on 06-17-2024 Bacteria identified Cx Nom (U) Culture exhibits no growth. [facility] Urine leukocyte esterase det ection by dipstickOrdered By: Victor M Rojas on 06-17-2024 Leukocyte esterase Test strip Ql (U) 25 /ul High Negative [facility] Urine pHOrdered By: Tg Rojas on 06-17-2024 pH (U) 5.0 [pH] 5.0 - 8.0 [facility] Urine specific gravity measu rementOrdered By: Victor M Rojas on 06-17-2024 Specific gravity (U) [Rel density] 1.015 1.002-1.030 [facility] Urobilinogen Ql (U)Ordered B y: Victor M Rojas on 06-17-2024 Urine Urobilinogen Normal mg/dl Normal [facility] Gastroenterology Visit Repor ton 06-06-2024 Gastroenterology Visit Report [facility] Gastroenterology [address] [place] [address] OFFICE VISIT Date of Service: 06/06/24 MR#: [id number] Acct: [id number] Name: ELIZABETH MODI Rep #: [id number] : 1940 Provider: GILL Jefferson Age/Sex: 83/M Location: [facility] Status: Signed Intake Vital Signs 01/11/24 07:47 [...] Denies bloody stools, N/V/C and abdominal pain. 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 alcohol intake: current alcohol intake frequency: a few times a month details: Prior heavier, now occasional. substance use type: does not use HPI HPI Chief Complaint: f/u. Details: ELIZABETH MODI, is a 83 M who presents to the office today for f/u. *[facility] hospitalization 6.-7 for management of choledocholithiasis (ATB Tx), calculous [...] MHD dila (more content not included)... Normal [facility] Gastroenterology Visit Repor ton 03-04-2024 Gastroenterology Visit Report [facility] Gastroenterology [address] [place] [address] OFFICE VISIT Date of Service: 03/04/24 MR#: [id number] Acct: [id number] Name: ELIZABETH MODI Rep #: [id number] : 1940 Provider: Sohail Owen DO Age/Sex: 83/M Location: [facility] Status: Signed Intake Vital Signs 06/06/23 10:41 [...] pulmonary disease) Obesity Atherosclerotic heart disease of [place] coronary artery without angina pectoris Paroxysmal atrial [...] (Reviewed 02/15/23 @ 11:03 by Briana Plata MULTIPLE TUBE WINDING MACHINE OPERATOR, MULTIPLE TUBE WINDING MACHINE OPERATOR-C) Mother Diabetes Father Diabetes Heart disease Social History (Reviewed 02/15/23 @ 11:03 by Briana Plata MULTIPLE TUBE WINDING MACHINE OPERATOR, MULTIPLE TUBE WINDING MACHINE OPERATOR-C) housing: retirement Smoking Status: Former smoker how long ago did patient quit smoking: Quit . alcohol intake: current alcohol intake frequency: a few times a month details: Prior heavier, now occasional. substance use type: does not use HPI HPI Details: ELIZABETH MODI, is a 83 M who presents to the office today for follow up. *[facility] hospitalization 12.14.22-12.17.22 for management of choledocholithiasis (ATB [...] does endorse (more content not included)... Normal [facility] BCIDon 08-02-2023 Acinetobacter landon-baumanii complex Not detected Normal Not Detected Replaced By [facility] ([place] Comment on above: Performed By: #### B MARANDA #### [place] [address] Bacteroides fragilis Not detected Normal Not Detected Replaced By [facility] [place] Comment on above: Performed By: #### B MARANDA #### [place] [address] BCID Comment See Comment Normal Replaced By [facility] ([place] Comment on above: Result Comment: Anti [...] By: #### B MARANDA #### [place] [address] Megan albicans Not detected Normal Not Detected Replaced By [facility] [place] Comment on above: Performed By: #### B MARANDA #### [place] [address] Megan auris Not detected Normal Not Detected Replaced By [facility] ([place] Comment on above: Performed By: #### B MARANDA #### [place] [address] Megan glabrata Not detected Normal Not Detected Replaced By [facility] ([place] Comment on above: Performed By: #### B MARANDA #### [place] [address] Megan krusei Not detected Normal Not Detected Replaced By [facility] ([place]) Comment on above: Performed By: #### B MARANDA #### [facility] [address] [place] [address] Megan parapsilosis Not detected Normal Not Detected Replaced By [facility] ([place]) Comment on above: Performed By: #### B MARANDA #### [facility] [address] [place] [address] Megan tropicalis Not detected Normal Not Detected Replaced By [facility] ([place]) Comment on above: Performed By: #### B MARANDA #### [facility] [address] [place] [address] Cryptococcus neoformans-gattii Not detected Normal Not Detected Replaced By [facility] ([place]) Comment on above: Performed By: #### B MARANDA #### [facility] [address] [place] [address] CTX-M (ESBL) Not Applicable Normal Not Detected Replaced By [facility] ([place]) Comment on above: Performed By: #### B MARANDA #### [place] [address] E. Coli Not detected Normal Not Detected Replaced By [facility] ([place]) Comment on above: Performed By: #### B MARANDA #### [place] [address] Enterobacter cloacae Complex Not detected Normal Not Detected Replaced By [facility] ([place]) Comment on above: Performed By: #### B MARANDA #### [facility] [address] [place] [address] Enterobacterales Not detected Normal Not Detected Replaced By [facility] ([place]) Comment on above: Performed By: #### B MARANDA #### [facility] [address] [place] [address] Enterococcus faecalis Not detected Normal Not Detected Replaced By [facility] ([place]) Comment on above: Performed By: #### B MARANDA #### [facility] [address] [place], [place] [id number] Enterococcus faecium Not detected Normal Not Detected Replaced By [facility] ([place]) Comment on above: Performed By: #### B MARANDA #### [place] [id number] Haemophilus influenzae Not detected Normal Not Detected Replaced By [facility] ([place]) Comment on above: Performed By: #### B MARANDA #### [facility] [address] [place] [address] IMP (Carbapenemase) Not Applicable Normal Not Detected Replaced By [facility] ([place]) Comment on above: Performed By: #### B MARANDA #### [facility] [address] [place] [address] Klebsiella aerogenes Not detected Normal Not Detected Replaced By [facility] ([place]) Comment on above: Performed By: #### B MARANDA #### [place] [address] Klebsiella oxytoca Not detected Normal Not Detected Replaced By [facility] ([place]) Comment on above: Performed By: #### B MARANDA #### [address] [address] Klebsiella pneumoniae group Not detected Normal Not Detected Replaced By [facility] ([place]) Comment on above: Performed By: #### B MARANDA #### [place] [address] KPC (Carbapenemase) Not Applicable Normal Not Detected Replaced By [facility] ([place]) Comment on above: Performed By: #### B MARANDA #### [address] [address] Listeria monocytogenes Not detected Normal Not Detected Replaced By [facility] ([place] Comment on above: Performed By: #### B MARANDA #### [place] [address] MCR-1 (Colistin Resistance) Not Applicable Normal Not Detected Replaced By [facility] ([place] Comment on above: Performed By: #### B MARANDA #### [place] [id number] Mec A/C Detected Abnormal Not Detected Replaced By [facility] ([place]) Comment on above: Performed By: #### B MARANDA #### [place] [id number] Mec A/C-MREJ (MRSA) Not Applicable Normal Not Detected Replaced By [facility] ([place]) Comment on above: Performed By: #### B MARANDA #### [address] [address] NDM (Carbapenemase) Not Applicable Normal Not Detected Replaced By [facility] ([place] Comment on above: Performed By: #### B MARANDA #### [facility] [address] [place] [address] Neisseria meningitidis (Encapsalated) Not detected Normal Not Detected Replaced By [facility] ([place] Comment on above: Performed By: #### B MARANDA #### [facility] [address] [place] [address] OXA-48 like (Carbapenemase) Not Applicable Normal Not Detected Replaced By [facility] ([place] Comment on above: Performed By: #### B MARANDA #### [facility] [address] [place] [address] Proteus Not detected Normal Not Detected Replaced By [facility] ([place] Comment on above: Performed By: #### B MARANDA #### [address] [address] Pseudomonas aeruginosa Not detected Normal Not Detected Replaced By [facility] [place] Comment on above: Performed By: #### B MARANDA #### [place] [id number] S. agalactiae Org specific cx Ql (Vag fld) Not detected Normal Not Detected Replaced By [facility] ([place] Comment on above: Performed By: #### B MARANDA #### [address] [address] Salmonella species Not detected Normal Not Detected Replaced By [facility] [place] Comment on above: Performed By: #### B MARANDA #### [address] [address] Serratia marcescens Not detected Normal Not Detected Replaced By [facility] [place] Comment on above: Performed By: #### B MARANDA #### [address] [address] Staphylococcus Detected Abnormal Not Detected Replaced By [facility] ([place] Comment on above: Performed By: #### B MARANDA #### [address] [address] Staphylococcus aureus Not detected Normal Not Detected Replaced By [facility] [place] Comment on above: Result Comment: If S taphylococcus aureus is "Detected", an Infectious Disease physician consult is required on identification. Performed By: #### B MARANDA #### [address] [address] Staphylococcus epidermidis Detected Abnormal Not Detected Replaced By [facility] ([place] Comment on above: Performed By: #### B MARANDA #### [place] [address] Staphylococcus lugdunensis Not detected Normal Not Detected Replaced By [facility] [place] Comment on above: Performed By: #### B MARANDA #### [place] [address] Stenotrophomonas maltophilia Not detected Normal Not Detected Replaced By [facility] [place] Comment on above: Performed By: #### B MARANDA #### [place] [address] Streptococcus Not detected Normal Not Detected Replaced By [facility] [place] Comment on above: Performed By: #### B MARANDA #### [place] [address] Streptococcus pneumoniae Not detected Normal Not Detected Replaced By [facility] [place] Comment on above: Performed By: #### B MARANDA #### [place] [address] Streptococcus pyogenes Not detected Normal Not Detected Replaced By [facility] [place] Comment on above: Performed By: #### B MARANDA #### [place] [address] Van A/B Not Applicable Normal Not Detected Replaced By [facility] [place] Comment on above: Performed By: #### B MARANDA #### [place] [address] VIM (Carbapenemase) Not Applicable Normal Not Detected Replaced By [facility] ([place] Comment on above: Performed By: #### B MARANDA #### [place] [address] Absolute lymphocyte countOrd ered By: Dwayne Palumbo on 02-08-2023 Lymphocytes Auto (Unsp spec) [#/Vol] 1.91 10*3/uL 0.83-4.51 [facility] Basophil percentageOrdered B y: Dwayne Palumbo on 02-08-2023 Basophils/100 WBC (Bld) 0.2 % 0-1 [facility] Bilirubin [Mass/Vol] 0.90 mg/dL 0.20-1.00 [facility] Comment on above: For patients on eltr ombopag therapy, use of Dimension [place] TBIL is not recommended. Chloride [Moles/Vol] 105 mmol/L 98-107 [facility] Eosinophils/100 WBC (Bld) 2.7 % 0-5 [facility] Glucose [Mass/Vol] 191 mg/dL 74-106 [facility] Comment on above: Fasting Glucose resu lt greater than or equal to 126 mg/dL suggests DIABETES MELLITUS per A.D.A. criteria. Neutrophils (Bld) [#/Vol] 7.0 10*3/uL 2.0-7.7 [facility] Neutrophils/100 WBC (Bld) 66.4 % 47-70 [facility] Potassium [Moles/Vol] 4.1 mmol/L 3.5-5.1 [facility] Protein [Mass/Vol] 8.0 g/dL 6.4-8.2 [facility] Sodium [Moles/Vol] 137 mmol/L 136-145 [facility] WBC (Bld) [#/Vol] 10.5 10*3/uL 4.4-11.0 [facility] Blood erythrocytes count (nu mber/volume)Ordered By: Dwayne Palumbo on 02-08-2023 RBC (Bld) [#/Vol] 4.64 10*6/uL 4.6-6.2 [facility] Blood hemoglobin measurement (mass/volume)Ordered By: Dwayne Palumbo on 02-08-2023 Hemoglobin (Bld) [Mass/Vol] 12.7 g/dL 13.0-16.5 [facility] Blood lymphocytes/100 leukoc ytesOrdered By: Dwayne Palumbo on 02-08-2023 Lymphocytes/100 WBC (Bld) 18.2 % 19-41 [facility] Blood monocytes/100 leukocyt esOrdered By: Dwayne Palumbo on 02-08-2023 Monocytes/100 WBC (Bld) 11.2 % 0-10 [facility] Blood platelet mean volumeOr dered By: Dwayne Palumbo on 02-08-2023 Platelet mean volume (Bld) [Entitic vol] 10.7 fL 6.2-12.0 [facility] Determination of erythrocyte mean corpuscular volume (MCV)Ordered By: Dwayne Palumbo on 02-08-2023 MCV (RBC) [Entitic vol] 86.6 fL 80-94 [facility] Hematocrit Auto (Bld) [Volum e fraction]Ordered By: Dwayne Palumbo on 02-08-2023 Hematocrit (Bld) [Volume fraction] 40.2 % 40-54 [facility] Laboratory - Chemistry and C hemistry - challengeOrdered By: Dwayne Palumbo on 02-08-2023 ALP [Catalytic activity/Vol] 122 U/L 45-117 [facility] ALT [Catalytic activity/Vol] 42 U/L 16-61 [facility] CO2 [Moles/Vol] 23.0 mmol/L 21.0-32.0 [facility] Globulin (S) [Mass/Vol] 4.6 g/dL 2.2-4.2 [facility] Urea nitrogen/Creatinine [Mass ratio] 25.7 mg/mg 10-20 [facility] Laboratory - Hematology and Cell countsOrdered By: Dwayne Palumbo on 02-08-2023 Erythrocyte distribution width (RBC) [Entitic vol] 50.7 fL 35.1-43.9 [facility] Erythrocyte distribution width (RBC) [Ratio] 16.1 % 11.6-14.6 [facility] Immature granulocytes/100 WBC (Bld) 1.300 % 0.0-0.9 [facility] Comment on above: IG% - Immature Granu locytes (promyelocytes, myelocytes and metamyelocytes) > 1% indicates that a LEFT SHIFT is Present. MCH (RBC) [Entitic mass] 27.4 pg 27.0-32.0 [facility] Nucleated RBC/100 WBC (Bld) [Ratio] 0 % 0-5 [facility] MCHC Auto (RBC) [Mass/Vol]Or dered By: Dwayne Palumbo on 02-08-2023 MCHC (RBC) [Mass/Vol] 31.6 g/dL 32-36 [facility] No Panel InformationOrdered By: Dwayne Palumbo on 02-08-2023 Estimated GFR (MDRD) Amer 46 mL/min >60 [facility] Comment on above: GFR Calc Estimated GFR (MDRD) Non-Af Amer 38 mL/min >60 [facility] Comment on above: Non- GFR Calc Platelets bldOrdered By: Edilson chu Deepali on 02-08-2023 Platelets (Bld) [#/Vol] 275 10*3/uL 150-450 [facility] Serum or plasma albumin akash urement (mass/volume)Ordered By: Dwayne Palumbo on 02-08-2023 Albumin [Mass/Vol] 3.4 g/dL 3.2-5.0 [facility] Serum or plasma albumin/glob ulin mass ratioOrdered By: Dwayne Palumbo on 02-08-2023 Albumin/Globulin [Mass ratio] 0.7 {ratio} 0.9-2.4 [facility] Serum or plasma calcium akash urement (mass/volume)Ordered By: Dwayne Palumbo on 02-08-2023 Calcium [Mass/Vol] 9.4 mg/dL 8.5-10.1 [facility] Serum or plasma creatinine m easurement (mass/volume)Ordered By: Dwayne Palumbo on 02-08-2023 Creatinine [Mass/Vol] 1.83 mg/dL 0.70-1.30 [facility] Comment on above: The validity of the calculated GFR & GFRAA in patients over 70 years has not been determined. Clinical correlation is essential. Serum or plasma urea nitroge n measurement (mass/volume)Ordered By: Dwayne Palumbo on 02-08-2023 Urea nitrogen [Mass/Vol] 47 mg/dL 7-18 [facility] Thin prep Papanicolaou smear with manual screeningOrdered By: Dwayne Palumbo on 02-08-2023 Thin prep Papanicolaou smear with manual screening 30 U/L 15-37 [facility] Thin prep Papanicolaou smear with manual screening 9 5-15 [facility] Absolute lymphocyte countOrd ered By: Jesse Haywood on 12-17-2022 Lymphocytes Auto (Unsp spec) [#/Vol] 0.86 10*3/uL 0.83-4.51 [facility] Basophil percentageOrdered B y: Jesse Haywood on 12-17-2022 Basophils/100 WBC (Bld) 0.1 % 0-1 [facility] Chloride [Moles/Vol] 113 mmol/L 98-107 [facility] Eosinophils/100 WBC (Bld) 0.2 % 0-5 [facility] Glucose [Mass/Vol] 178 mg/dL 74-106 [facility] Comment on above: Fasting Glucose resu lt greater than or equal to 126 mg/dL suggests DIABETES MELLITUS per A.D.A. criteria. Neutrophils (Bld) [#/Vol] 8.2 10*3/uL 2.0-7.7 [facility] Neutrophils/100 WBC (Bld) 80.2 % 47-70 [facility] Potassium [Moles/Vol] 3.8 mmol/L 3.5-5.1 [facility] Sodium [Moles/Vol] 141 mmol/L 136-145 [facility] WBC (Bld) [#/Vol] 10.2 10*3/uL 4.4-11.0 [facility] Blood erythrocytes count (nu mber/volume)Ordered By: Jesse Haywood on 12-17-2022 RBC (Bld) [#/Vol] 3.91 10*6/uL 4.6-6.2 [facility] Blood hemoglobin measurement (mass/volume)Ordered By: Jesse Haywood on 12-17-2022 Hemoglobin (Bld) [Mass/Vol] 11.1 g/dL 13.0-16.5 [facility] Blood lymphocytes/100 leukoc ytesOrdered By: Jesse Haywood on 12-17-2022 Lymphocytes/100 WBC (Bld) 8.4 % 19-41 [facility] Blood monocytes/100 leukocyt esOrdered By: Jesse Haywood on 12-17-2022 Monocytes/100 WBC (Bld) 9.2 % 0-10 [facility] Blood platelet mean volumeOr dered By: Jesse Haywood on 12-17-2022 Platelet mean volume (Bld) [Entitic vol] 11.4 fL 6.2-12.0 [facility] Determination of erythrocyte mean corpuscular volume (MCV)Ordered By: Jesse Haywood on 12-17-2022 MCV (RBC) [Entitic vol] 87.7 fL 80-94 [facility] Glucose Glucometer (BldC) [M ass/Vol]Ordered By: Jesse Haywood on 12-17-2022 Glucose [Mass/Vol] 216 mg/dL 74-106 [facility] Comment on above: MANAGEMENT OF PATIEN T CARE PER NURSING PROTOCOL Hematocrit Auto (Bld) [Volum e fraction]Ordered By: Jesse Haywood on 12-17-2022 Hematocrit (Bld) [Volume fraction] 34.3 % 40-54 [facility] Laboratory - Chemistry and C hemistry - challengeOrdered By: Jesse Haywood on 12-17-2022 CO2 [Moles/Vol] 21.0 mmol/L 21.0-32.0 [facility] Urea nitrogen/Creatinine [Mass ratio] 30.1 mg/mg 10-20 [facility] Laboratory - Hematology and Cell countsOrdered By: Jesse Haywood on 12-17-2022 Erythrocyte distribution width (RBC) [Entitic vol] 47.4 fL 35.1-43.9 [facility] Erythrocyte distribution width (RBC) [Ratio] 14.7 % 11.6-14.6 [facility] Immature granulocytes/100 WBC (Bld) 1.900 % 0.0-0.9 [facility] Comment on above: IG% - Immature Granu locytes (promyelocytes, myelocytes and metamyelocytes) > 1% indicates that a LEFT SHIFT is Present. MCH (RBC) [Entitic mass] 28.4 pg 27.0-32.0 [facility] Nucleated RBC/100 WBC (Bld) [Ratio] 0 % 0-5 [facility] MCHC Auto (RBC) [Mass/Vol]Or dered By: Jesse Haywood on 12-17-2022 MCHC (RBC) [Mass/Vol] 32.4 g/dL 32-36 [facility] No Panel InformationOrdered By: Jesse Haywood on 12-17-2022 Estimated Creatinine Clearance Calc 34.17 ml/min [facility] Estimated GFR (MDRD) Amer 56 mL/min >60 [facility] Comment on above: GFR Calc Estimated GFR (MDRD) Non-Af Amer 47 mL/min >60 [facility] Comment on above: Non- GFR Calc Platelets bldOrdered By: Stephanie Haywood on 12-17-2022 Platelets (Bld) [#/Vol] 248 10*3/uL 150-450 [facility] Serum or plasma calcium akash urement (mass/volume)Ordered By: Jesse Haywood on 12-17-2022 Calcium [Mass/Vol] 8.0 mg/dL 8.5-10.1 [facility] Serum or plasma creatinine m easurement (mass/volume)Ordered By: Jesse Haywood on 12-17-2022 Creatinine [Mass/Vol] 1.53 mg/dL 0.70-1.30 [facility] Comment on above: The validity of the calculated GFR & GFRAA in patients over 70 years has not been determined. Clinical correlation is essential. Serum or plasma urea nitroge n measurement (mass/volume)Ordered By: Jesse Haywood on 12-17-2022 Urea nitrogen [Mass/Vol] 46 mg/dL 7-18 [facility] Thin prep Papanicolaou smear with manual screeningOrdered By: Jesse Haywood on 12-17-2022 Thin prep Papanicolaou smear with manual screening 7 5-15 [facility] Bacteria identified Anaer cx Nom (Unsp spec)Ordered By: Dwayne Palumbo on 12-16-2022 Anaerobic Culture Bacteroides vulgatus [facility] Bacteria identified Cx Nom ( Wound)Ordered By: Dwayne Palumbo on 12-16-2022 Wound Culture Escherichia coli [facility] Basophil percentageOrdered B y: Jesse Haywood on 12-16-2022 Bilirubin [Mass/Vol] 2.00 mg/dL 0.20-1.00 [facility] Comment on above: For patients on eltr ombopag therapy, use of Dimension [place] TBIL is not recommended. Protein [Mass/Vol] 6.4 g/dL 6.4-8.2 [facility] Gram stain for investigation of transfusion reactionOrdered By: Dwayne Palumbo on 12-16-2022 Microscopic observation Gram stain Nom (Unsp spec) [facility] INR in Blood by Coagulation assayOrdered By: Emmanuel Kohler on 12-16-2022 INR Coag (Bld) [Relative time] 1.3 {INR} [facility] Laboratory - Chemistry and C hemistry - challengeOrdered By: Jesse Haywood on 12-16-2022 ALP [Catalytic activity/Vol] 278 U/L 45-117 [facility] ALT [Catalytic activity/Vol] 132 U/L 16-61 [facility] Globulin (S) [Mass/Vol] 4.2 g/dL 2.2-4.2 [facility] Laboratory - CoagulationOrde red By: Emmanuel Kohler on 12-16-2022 PT Coag (PPP) [Time] 16.5 s 11.7-14.9 [facility] Serum or plasma albumin akash urement (mass/volume)Ordered By: Jesse Haywood on 12-16-2022 Albumin [Mass/Vol] 2.2 g/dL 3.2-5.0 [facility] Serum or plasma albumin/glob ulin mass ratioOrdered By: Jesse Haywood on 12-16-2022 Albumin/Globulin [Mass ratio] 0.5 {ratio} 0.9-2.4 [facility] Thin prep Papanicolaou smear with manual screeningOrdered By: Jesse Haywood on 12-16-2022 Thin prep Papanicolaou smear with manual screening 74 U/L 15-37 [facility] Blood manual differential co mment interpretation (narrative result)Ordered By: Jesse Haywood on 12-15-2022 Manual differential comment Ghassan (Bld) [Interp] COMMENT [facility] Comment on above: MONOCYTOSIS. Laboratory - CoagulationOrde red By: Jesse Wang on 12-15-2022 aPTT Coag (Bld) [Time] 38.5 s 24.1-36.2 [facility] No Panel InformationOrdered By: Jesse Wang on 12-15-2022 Thyroid Stimulating Hormone (TSH) 1.50 uIU/mL 0.358-3.74 [facility] Review by pathologistOrdered By: Jesse Haywood on 12-15-2022 Pathologist review Ghassan (Unsp spec) [Interp] Reviewed [facility] Comment on above: Previous reported re sult: Stacy noonan Edited by: RGOMARTHA on 12/15/22:1321Neutrophilic leukocytosis.Clinical correlation necessary.Raymond Knox M.D. 12/15/22 AMENDED REPORT 12/15/22 1321 PATH REV previously reported as: Stacy noonan Whole blood hemoglobin A1c/t otal hemoglobin ratio (mass fraction)Ordered By: Jesse Wang on 12-15-2022 HbA1c (Bld) [Mass fraction] 6.9 % 3.8-5.6 [facility] Comment on above: Normal < 5.7 % Predi abetic 5.7 - 6.4 % Diabetic >or= 6.5 % Please note range changes. BLOOD TB SCREENon 09-02-2022 M. tuberculosis tuberculin stim IFN-g Ql (Bld) Negative [facility] Mitogen minus Nil 5.42 IU/mL >=0.50 IU/mL [facility] TB Gamma Interpretation Infection with M . tuberculosis complex is unlikely. If latent tuberculosis infection is highly suspected, a negative result does not rule out the infection. Specimens from immunocompromised patients and those <5 years of age may show false negative results. In case of a contact investigation, please repeat 8-12 weeks after a known exposure. [facility] TB Nil 0.02 IU/mL <=8.00 IU/mL [facility] TB1 Ag minus Nil 0.00 IU/mL <0.35 IU/mL [facility] TB2 Ag minus Nil <0.35 IU/mL [facility] CBC W Auto Differential pane l (Bld)on 09-02-2022 Anisocytosis Ql (Bld) Present [facility] Basophils (Bld) [#/Vol] 0.00 10*3/uL <0.11 k/uL [facility] Basophils/100 WBC (Bld) 0.0 % [facility] Differential cell count method Nom (Bld) Manual [facility] Eosinophils (Bld) [#/Vol] 0.14 10*3/uL <0.46 k/ uL [facility] Eosinophils/100 WBC (Bld) 1.0 % [facility] Erythrocyte distribution width (RBC) [Ratio] 16.4 % High 11.5 - 15.0 % [facility] Hematocrit (Bld) [Volume fraction] 45.3 % 39.0 - 51.0 % [facility] Hemoglobin (Bld) [Mass/Vol] 14.4 g/dL 13.0 - 17.0 g/dL [facility] Lymphocytes (Bld) [#/Vol] 1.43 10*3/uL 1. 00 - 4.00 k/uL [facility] Lymphocytes/100 WBC (Bld) 10.0 % [facility] MCH (RBC) [Entitic mass] 29.9 pg 26. 0 - 34.0 pg [facility] MCHC (RBC) [Mass/Vol] 31.8 g/dL 30.5 - 36.0 g/dL [facility] MCV (RBC) [Entitic vol] 94.0 fL 80.0 - 100.0 fL [facility] [place] % 1.0 % [facility] Monocytes (Bld) [#/Vol] 1.00 10*3/uL High <0.87 k/uL [facility] Monocytes/100 WBC (Bld) 7.0 % [facility] Neutrophils (Bld) [#/Vol] 11.57 10*3/uL High 1 .45 - 7.50 k/uL [facility] Neutrophils/100 WBC (Bld) 81.0 % [facility] Nucleated RBC (Bld) [#/Vol] <0.01 k/uL [facility] Nucleated RBC/100 WBC (Bld) [Ratio] 0.0 /100 WBC [facility] Ovalocytes LM Ql (Bld) Few Cl [facility] Platelet mean volume (Bld) [Entitic vol] 11.1 fL 9.0 - 12.7 fL [facility] Platelets (Bld) [#/Vol] 282 10*3/uL 150 - 400 k/uL [facility] Platelets Estimate (Bld) [#/Vol] Adequate [facility] Polychromasia LM Ql (Bld) Slight [facility] RBC (Bld) [#/Vol] 4.82 10*6/uL 4.20 - 6.0 0 m/uL [facility] Red Cell Morph Reviewed: see result s of individual morphologies [facility] WBC (Bld) [#/Vol] 14.29 10*3/uL High 3.70 - 11.00 k/uL [facility] WBC Left Shift Ql (Bld) Present [facility] C-REACTIVE PROTEIN (CRP)on 0 09-01-2022 CRP [Mass/Vol] <0.9 mg/dL [facility] Comprehensive metabolic 2000 panelon 09-01-2022 Albumin [Mass/Vol] 4.0 g/dL 3.9 - 4.9 g/dL [facility] ALP [Catalytic activity/Vol] 88 U/L 38 - 113 U/L [facility] ALT [Catalytic activity/Vol] 19 U/L 10 - 54 U/L [facility] Anion gap [Moles/Vol] 11 mmol/L 9 - 18 mmol/L [facility] AST [Catalytic activity/Vol] 19 U/L 14 - 40 U/L [facility] Bilirubin [Mass/Vol] 0.5 mg/dL 0.2 - 1 .3 mg/dL [facility] Calcium [Mass/Vol] 9.4 mg/dL 8.5 - 10. 2 mg/dL [facility] Chloride [Moles/Vol] 106 mmol/L High 97 - 10 5 mmol/L [facility] CO2 [Moles/Vol] 21 mmol/L Low 22 - 30 mmol/L [facility] Creatinine [Mass/Vol] 2.01 mg/dL High 0.73 - 1.22 mg/dL [facility] Estimated Glomerular Filtration Rate 33 mL/min/1.73m Low >=60 mL/min/1.73 m [facility] Glucose [Mass/Vol] 146 mg/dL High 74 - 99 mg/dL [facility] Potassium [Moles/Vol] 4.5 mmol/L 3.7 - 5.1 mmol/L [facility] Protein [Mass/Vol] 7.2 g/dL 6.3 - 8.0 g/dL [facility] Sodium [Moles/Vol] 138 mmol/L 136 - 144 mmol/L [facility] Urea nitrogen [Mass/Vol] 50 mg/dL High 9 - 24 mg/dL [facility] ESR Westergren method (Bld) [Velocity]on 09-01-2022 ESR (Bld) [Velocity] 31 mm/h High 0 - 15 mm/hr [facility] VITAMIN D 25 HYDROXYon 09-01 25-hydroxyvitamin D3 [Mass/Vol] 27.8 ng/mL Low 31.0 - 80.0 ng/mL [facility] LABORATORYOrdered By: Michelle Gardner on 01-13-2022 Blood Glucose Testing Reason Routine (01/13/22 11:36 AM) [facility] Work Phone: Glucose [Mass/Vol] 101 mg/dL Invalid Interpretation Code 82 - 115 mg/dL [facility] Work Phone: Blood Glucose Testing Reason Routine (01/13/22 7:06 AM) [facility] Work Phone: Glucose [Mass/Vol] 87 mg/dL Invalid Interpretation Code 82 - 115 mg/dL [facility] Work Phone: LABORATORYOrdered By: SYSTEM SYSTEM [...] Glucose Testing Reason Routine (01/12/22 8:59 PM) [facility] Work Phone: Glucose [Mass/Vol] 153 mg/dL Invalid Interpretation Code 82 - 115 mg/dL [facility] Work Phone: LABORATORYOrdered By: Adali Spencer [...] Comment on above: Result Comment: [place] [id number] FLU B PCR Negative 8 (01/12/22 10:33 AM) Invalid Interpretation Code Negative AH Auto Viro/Sero SS Comment on above: Result Comment: [place] [id number] Hospitalized Yes (01/12/22 10:33 AM) Invalid Interpretation [...] Comment on above: Result Comment: Note s [id number] SARS-CoV-2 (COVID-19) RNA ARIELLE+probe Ql (Unsp spec) Negative 6 (01/12/22 10:33 AM) Invalid Interpretation Code Negative AH Auto Viro/Sero SS Comment on above: Result Comment: [place] [id number] Symptomatic as Defined by CDC No (01/12/22 [...] 10.5 fL Workflow SS Platelets (Bld) [#/Vol] 322 103/mcL [...] % AH Workflow SS Neutrophils (Bld) [#/Vol] 7.3 103/mcL Invali d Interpretation Code 2.3 - 8.1 10^3/mcL AH Workflow SS Neutrophils/100 WBC (Bld) 74.8 % [...] 75.0 % AH Workflow SS LABORATORYOrdered By: Brigida Knott on 01-06-2022 Blood Glucose Interventions Administered food/juice (01/06/22 8:38 AM) [facility] Work Phone: LABORATORYOrdered By: SYSTEM SYSTEM [...] 5.7 - 8.2 G/dL AH ADM SS LABORATORYOrdered By: Kassidy Lopez on [...] (Bld) [Moles/Vol] -2.6000 mmol/L Invalid Interpretation Code Auto Chem SS [...] Manual SS LABORATORYOrdered By: SYSTEM SYSTEM on 01-04-2022 Albumin BCP dye [Mass/Vol] [...] 55 U/L ADM SS AST [Catalytic activity/Vol] 16 U/L Invalid Interpretation Code 8 - 34 U/L ADM SS Bilirubin [Mass/Vol] 1.00 mg/dL Invalid [...] Blood Glucose Interventions Retest (12/30/21 8:53 AM) [facility] Work Phone: LABORATORYOrdered By: Rohan Rivero on 12-30-2021 Cholesterol [Mass/Vol] 129 mg/dL Invalid Interpretation Code 50 - 199 mg/dL ADM SS Cholesterol in HDL [Mass/Vol] 24 mg/dL Invalid Interpretation Code 40 - 59 mg/dL ADM SS Cholesterol in LDL [Mass/Vol] 75 mg/dL Invalid Interpretation Code 0 - 129 mg/dL ADM SS Triglyceride [Mass/Vol] 152 mg/dL Invalid Interpretation Code 3 - 149 mg/dL ADM SS LABORATORYOrdered By: Lety teresa on 12-30-2021 Natriuretic peptide.B prohormone N-Terminal [Mass/Vol] 3741 pg/mL Invalid Interpretation Code 0 - 1800 pg/mL Auto Chem SS No Panel InformationOrdered By: Zoltan Mascorro on 12-30-2021 Blood Glucose Interventions Administered food/juice, Administered agent to increase blood sugar (12/30/21 8:32 AM) [facility] Work Phone: Hemoglobin A1con 08-04-2021 Glucose [Mass/Vol] 258 mg/dL Normal [facility] Comment on above: Performed By: #### H BA1C #### [facility] Laboratories Routine Lab [address], [place] [address] HbA1c (Bld) [Mass fraction] 10.6 % High 4.3-5.6 [facility] Comment on above: Performed By: #### H BA1C #### [facility] Routine Lab [address] [place], [place] [address] Glucose,Bedsideon 02-09-2021 Glucose [Mass/Vol] 185 mg/dL High 70-100 [facility] Comment on above: Result Comment: Test performed by glucose meter. Results may be 10%-15% lower than serum/plasma values. (CLIA ID [id number]) Performed By: #### B GLU #### [facility] [address] [place] [address] Glucose [Mass/Vol] 284 mg/dL High 70-100 [facility] Comment on above: Result Comment: Test performed by glucose meter. Results may be 10%-15% lower than serum/plasma values. (CLIA ID [id number]) Performed By: #### B GLU #### [facility] [employer] [facility] [address] [place] [address] OPERATIVE REPORTOrdered By: 3m Scanning on 02-09-2021 [facility] Work Phone: Op Noteon 02-09-2021 Op Note [facility] l Dictation: Topical Anesthesia Note Patient Name: Elizabeth Modi : 1940 Date of Procedure: 02/09/2021 Surgeon: Ammy Vicente M.D. Braille Typist: Rachel Elder MD Anesthesia: Monitored Anesthesia Care [...] then created using a cystotome and utrata forceps.[place]-dissecti on and hydro-delineation were then performed. Phacoemulsification [...] or any other concerns. Operative Note Normal [facility] POCT GlucoseOrdered By: Gayatri Vicente on 02-09-2021 Glucose [Mass/Vol] 185 mg/dL High 70 - 100 mg/dL [employer] Work Phone: Comment on above: Test performed by [employer] ucose meter. Results may be 10%-15% lower than serum/plasma values. (CLIA ID [id number]) Interpretation and review of laboratory results Abnormal [employer] Work Phone: Test Performed by [employer], [address] [place] [id number] [facility] Work [facility]: [employer] Work Phone: Glucose [Mass/Vol] 284 mg/dL High 70 - 100 mg/dL [employer] Work Phone: Comment on above: Test performed by [employer] ucose meter. Results may be 10%-15% lower than serum/plasma values. (CLIA ID [id number]) Interpretation and review of laboratory results Abnormal [facility] Work [facility]: Test Performed by [employer], [address] [place] [id number] [employer] Work Phone: [employer] Work Phone: Hemoglobin A1con 12-03-2020 Glucose [Mass/Vol] 194 mg/dL Normal [facility] Comment on above: Performed By: #### H BA1C #### [facility] Routine Lab [address], [place] [id number] HbA1c (Bld) [Mass fraction] 8.4 % High 4.3-5.6 [facility] Comment on above: Performed By: #### H BA1C #### [facility] Routine Lab [address], [place] [id number] ECHOCARDIOGRAM LIMITED/FOLLO WUPon 11-13-2020 ECHOCARDIOGRAM LIMITED/FOLLOWUP ? [...] 06/08/2020, LV function has improved. Facility [facility] Patient Information Patient Name Elizabeth Modi Legal [...] Role Read Date Dwayne Carrasco MD [address] 11/13/2020 Left Heart Measurements LV - Systole [...] patient's inability to turn. Imaging system used: Girl Meets Dress. Exam Details Performed Procedure (more content not included)... Normal [facility] Hemoglobin A1con 09-10-2020 Glucose [Mass/Vol] 177 mg/dL Normal [facility] Comment on above: Performed By: #### H BA1C #### [facility] Routine Lab [address] [place], [place] [address] HbA1c (Bld) [Mass fraction] 7.8 % High 4.3-5.6 [facility] Comment on above: Performed By: #### H BA1C #### [facility] Laboratories Routine Lab [address] [place] [id number] Beau 05-20-2020 CNPN Telephone (LUCRECIA) ELIZABETH MODI ([id number]) 1940 M Date Time Provider Department 05/20/20 [...] EWING on 05/20/20 [facility] GUR[place] Telephone ([employer]) ELIZABETH MODI ([id number]) 1940 M Date Time Provider Department 05/20/20 RYAN ALLEN During your visit today, we recorded the following information about you: Bren Santos 05/20/2020 2:52 PM Signed I have received a call from the daughter Angelic and she stated her father is in the hospital in [place] where he has had great toe removed [...] Signed Noted. Thank you, Maria Esther Gusman APRN.RN MEDICATION Allergies As of Date: 05/20/2020 (No Known [...] [facility] PROGRESSon 05-18-2020 PROGRESS HNO ID: [id number] Author: Ryan Allen Service: ? Author Type: [...] Anxiety and depression - DM (diabetes mellitus) ([facility]) - Dyslipidemia - HTN (hypertension) - Hypothyroidism - PVD (peripheral vascular disease) ([facility]) - Renal mass PAST SURGICAL HISTORY Procedure [...] MG DAILY@0800 October 12, 2019 7:37am 10-12-2019 [facility] ([id number]) - gabapentin (NEURONTIN) 600 mg tablet Take [...] encounter diagnosis) (I73.9) PVD (peripheral vascular disease) ([facility]) (E11.69) Type 2 diabetes mellitus with other specified complication, without long-term current use of insulin ([facility]) (S91.302A) Open wound of left foot with [...] this point. Given the state of the [facility] emergency room at this junction it may be better to have him seen locally at [facility] and see if some antibiotic therapy at least overnight might be worth a try. Possible transfer from there would depend on his stability and the bed availability here at [facility] There are no Patient Instructions on file for this visit. Ryan Allen MD Normal [facility] Bas Metab 2000 Pnl SerPlon 1 07-15-2019 Anion gap [Moles/Vol] 13 mmol/L Normal 9-18 [facility] Comment on above: Order Comment: Speci men Type: BLOOD SPECIMEN Performed By: #### 2 4321-2 #### [facility] CLIA [id number] [address] [place] [address] Calcium [Mass/Vol] 9.8 mg/dL Normal 8.5-10.2 [facility] Comment on above: Order Comment: Speci men Type: BLOOD SPECIMEN Performed By: #### 2 4321-2 #### [facility] CLIA [id number] [address] [place] [address] Chloride [Moles/Vol] 102 mmol/L Normal 97-105 [facility] Comment on above: Order Comment: Speci men Type: BLOOD SPECIMEN Performed By: #### 2 4321-2 #### [facility] CLIA [id number] [address] [place] [address] CO2 [Moles/Vol] 24 mmol/L Normal 22-30 [facility] Comment on above: Order Comment: Speci men Type: BLOOD SPECIMEN Performed By: #### 2 4321-2 #### [facility] CLIA [id number] [address] [place] [address] Creatinine [Mass/Vol] 0.95 mg/dL Normal 0.73-1.22 [facility] Comment on above: Order Comment: Speci men Type: BLOOD SPECIMEN Performed By: #### 2 4321-2 #### [facility] CLIA [id number] [address] [place] [address] GFR/1.73 sq M.predicted MDRD (S/P/Bld) [Vol rate/Area] mL/min/{1.73_m2} Normal [facility] Comment on above: Order Comment: Speci [...] GFR. Performed By: #### 2 4321-2 #### [facility] CLIA [id number] [address] [place] [address] Glucose [Mass/Vol] 214 mg/dL High 74-99 [facility] Comment on above: Order Comment: Speci men Type: BLOOD SPECIMEN Result Comment: The [place] Diabetes Association (ADA) provides guidance for cutoff [...] Standards of Medical Care in Diabetes 2016, [place] Diabetes Association. Diabetes Care. 2016.39(Suppl 1). Performed By: #### 2 4321-2 #### [facility] CLIA [id number] [address] [place] [address] Potassium [Moles/Vol] 4.9 mmol/L Normal 3.7-5.1 [facility] Comment on above: Order Comment: Speci men Type: BLOOD SPECIMEN Performed By: #### 2 4321-2 #### [facility] CLIA [id number] [address] [place] [address] Sodium [Moles/Vol] 139 mmol/L Normal 136-144 [facility] Comment on above: Order Comment: Speci men Type: BLOOD SPECIMEN Performed By: #### 2 4321-2 #### [facility] CLIA [id number] [address] [place] [address] Urea nitrogen [Mass/Vol] 31 mg/dL High 9-24 [facility] Comment on above: Order Comment: Speci men Type: BLOOD SPECIMEN Performed By: #### 2 4321-2 #### [facility] CLIA [id number] [address] [place] [address] CBC (hemogram) Bld Autoon Erythrocyte distribution width (RBC) [Ratio] 12.8 % Normal 11.5-15.0 [facility] Comment on above: Order Comment: Speci men Type: BLOOD SPECIMEN Performed By: #### 5 8410-2 #### [facility] CLIA [id number] [address] [place] [address] Hematocrit (Bld) [Volume fraction] 43.5 % Normal 39.0-51.0 [facility] Comment on above: Order Comment: Speci men Type: BLOOD SPECIMEN Performed By: #### 5 8410-2 #### [facility] CLIA [id number] [address] [place] [address] Hemoglobin (Bld) [Mass/Vol] 14.1 g/dL Normal 13.0-17.0 [facility] Comment on above: Order Comment: Speci men Type: BLOOD SPECIMEN Performed By: #### 5 8410-2 #### [facility] CLIA [id number] [address] [place] [address] MCH (RBC) [Entitic mass] 29.5 pg Normal 26.0-34.0 [facility] Comment on above: Order Comment: Speci men Type: BLOOD SPECIMEN Performed By: #### 5 8410-2 #### [facility] CLIA [id number] [address] [place] [address] MCHC (RBC) [Mass/Vol] 32.4 g/dL Normal 30.5-36.0 [facility] Comment on above: Order Comment: Speci men Type: BLOOD SPECIMEN Performed By: #### 5 8410-2 #### [facility] CLIA [id number] [address] [place] [address] MCV (RBC) [Entitic vol] 91.0 fL Normal 80.0-100.0 [facility] Comment on above: Order Comment: Speci men Type: BLOOD SPECIMEN Performed By: #### 5 8410-2 #### [facility] CLIA [id number] [address] [place] [address] Nucleated RBC (Bld) [#/Vol] 10*3/uL Normal <0.01 [facility] Comment on above: Order Comment: Speci men Type: BLOOD SPECIMEN Performed By: #### 5 8410-2 #### [facility] CLIA [id number] [address] [place] [address] Platelet mean volume (Bld) [Entitic vol] 10.4 fL Normal 9.0-12.7 [facility] Comment on above: Order Comment: Speci men Type: BLOOD SPECIMEN Performed By: #### 5 8410-2 #### [facility] CLIA [id number] [address] [place] [address] Platelets (Bld) [#/Vol] 367 10*3/uL Normal 150-400 [facility] Comment on above: Order Comment: Speci men Type: BLOOD SPECIMEN Performed By: #### 5 8410-2 #### [facility] CLIA [id number] [address] [place] [address] RBC (Bld) [#/Vol] 4.78 10*6/uL Normal 4.20-6.00 [facility] Comment on above: Order Comment: Speci men Type: BLOOD SPECIMEN Performed By: #### 5 8410-2 #### [facility] CLIA [id number] [address] [place] [address] WBC (Bld) [#/Vol] 11.87 10*3/uL High 3.70-11.00 [facility] Comment on above: Order Comment: Speci men Type: BLOOD SPECIMEN Performed By: #### 5 8410-2 #### [facility] CLIA [id number] [address] [place] [address] CNPYessenia 05-15-2020 GURWINDER Telephone (AGVASACC) ELIZABETH MODI ([id number]) 1940 M Date Time Provider Department 05/15/20 RYAN ALLEN JERZY During your visit today, we recorded the [...] Allergies) Date Reviewed: 05/15/2020 Reviewed by: Sunshine [facility] - Fully Assessed Reason for Visit: Patient [...] MARIA ESTHER GUSMAN CNP on 05/19/20 Normal [facility] HGB A1Con 05-15-2020 Average glucose Estimated from glycated hemoglobin mass conc (Bld) 189 mg/dL Normal [facility] Comment on above: Order Comment: Speci men Type: BLOOD SPECIMEN Result Comment: eAG: (Estimated average glucose) is a calculated value from HgbA1c and is floor representative of the average blood glucose level in the last 2-3 month period. Performed By: #### H BA1C ####[facility] [id number] [place] [address] HbA1c (Bld) [Mass fraction] 8.2 % High 4.3-5.6 [facility] Comment on above: Order Comment: Speci men Type: BLOOD SPECIMEN Result Comment: [place] Diabetes Association guidelines indicate that patients with HgbA1c in the range 5.7-6.4% are at increased risk for development of diabetes, and intervention by lifestyle modification may be beneficial. HgbA1c greater or equal to 6.5% is considered diagnostic of diabetes. Performed By: #### H BA1C ####[facility] [id number] [place] [address] HISTORY PHYSICALon 0 HISTORY PHYSICAL HNO ID: [id number] Author: Sunshine Harris Service: ? Author Type: [...] Degree (Hcc) Pvd (Peripheral Vascular Disease) ([facility]) Below Knee Amputation ([facility]) Nonhealing Surgical Wound Subjective CHIEF COMPLAINT: PVD [...] - Hypothyroidism - PVD (peripheral vascular disease) ([facility]) PAST SURGICAL HISTORY Procedure Laterality Date - [...] MG DAILY@0800 October 12, 2019 7:37am 10-12-2019 [facility] ([id number]) Taking Yes gabapentin (NEURONTIN) 600 mg tablet [...] CP and palpitations. No h/o of CHF, ME, Cardiac Sx, cardiac stents, PPM/AICD. +HTN, HLD, [...] managed by PCP. no recent A1C in [facility], most recent BG check from 12/11/2019 was 126. will get A1C at [facility] Former Smoker- quit in 1989, 30 pack [...] COVID, ECG, PT, CBC, BMP ordered in [facility] per surgeon. CONSULTS: No consults pending. Instructions Given to Patient: Patient given verbal and written preop instructions and voices comprehension and compliance. Antimicrobial soap and instructions given to patient. SIGNATURE: Sunshine Harris APRN.CNP PATIENT NAME: Elizabeth Modi DATE: May 13, 2020 TIME: 3:32 PM PAGER/CONTACT #: Mela [facility] PT Pnl PPPon 05-15-2020 INR Coag (PPP) [Relative time] 1.0 {INR} Normal 0.9-1.3 [facility] Comment on above: Order Comment: Speci men Type: BLOOD SPECIMEN Result Comment: Radha min K Antagonist (VKA) Therapeutic Range: INR 2 to 3 (Target INR of 2.5) Note: For patients treated with VKA drugs, such as warfarin, the [place] [employer]icians 2012 Guideline recommends [...] Chest 2012, 141:7S-47S Dada RA, et al. [facility] 2017, 70: 252-289 Performed By: #### 3 4528-0 #### [facility] CLIA [id number] [address] [place] [address] PT Coag (PPP) [Time] 10.6 s Normal 9.7-13.0 [facility] Comment on above: Order Comment: Speci men Type: BLOOD SPECIMEN Performed By: #### 3 4528-0 #### [facility] CLIA [id number] [address] [place] [address] PT EDon 05-13-2020 PT ED HNO ID: [id number] Author: Jeni Izquierdo) KAVIN Shoemaker Service: ? [...] RN In Department: [place] SURGERY OR Normal [facility] PROGRESSon 04-29-2020 PROGRESS HNO ID: [id number] Author: Ryan Allen Service: ? Author Type: Physician Type: Progress Notes Filed: 04/29/2020 7:08 PM Note Text: This note was partially generated using Connexity voice recognition system. I spent 15+ minutes in the visit, with more than 50% of the total sdye-xw-lrbd time of the visit in counseling / [...] patient is currently taking aspirin: Yes Normal [facility] CNOVon 04-28-2020 CNOV Office Visit (AGVASACC) ELIZABETH MODI ([id number]) 1940 M Date Time Provider Department 04/28/20 11:00 AM RYAN ALLEN During your visit today, we recorded the following information about you: Temperature Blood pressure Weight Height 80 degrees 134/60 88 kg 1.778 m Ryan Allen MD 04/29/2020 7:08 PM Signed This note was partially generated using Connexity voice recognition system. I spent 15+ minutes in the visit, with more than 50% of the total yery-nh-olzu time of the visit in counseling / [...] runoffs Primary Visit Diagnosis:PVD (peripheral vascular disease) ([facility]) [I73.9] Other Visit Diagnoses:Nonhealing nonsurgical wound [T14.8XXA] [...] Hypothyroidism [E03.9] 08/21/2019 Malnutrition of moderate degree ([facility]) [E44.0] 08/22/2019 PVD (peripheral vascular disease) ([facility]) [I73.9] 12/07/2019 Below knee amputation ([facility]) [S88.119A] 12/07/2019 Nonhealing surgical wound [T81.89XA] 12/09/2019 Disposition: Return in about 4 weeks (around 05/26/2020). Follow-up and Disposition History Recorded Letter Text Encounter Status:Closed by RYAN ALLEN MD on 04/29/20 [facility] Beau 04-28-2020 JONAS Telephone (LUCRECIA) ELIZABETH MODI ([id number]) 1940 M Date Time Provider Department 04/28/20 RYAN ALLEN During your visit today, we recorded the following information about you: Maria Esther Gusman APRN.GURWINDER BECERRA 04/28/2020 1:53 PM Signed Orders signed. Thank you, Maria Esther Gusman, LUZ ELENA.GURWINDER Bren Santos 04/30/2020 2:25 PM Addendum I have scheduled the patient for a Left Leg Aortogram with runoffs, possible intervention possible left arm approach on 05/25/20 @ 1030am with an 830 am arrival time. Pretesting is on 05/15/20 @ 1120am Main [facility]- no fasting is required Covid is 05/23/20 @ 1130 am at [facility] Post OP is 06/23/20 @ 10 am with [facility] Mailed 04/30/20 preetijovanny Lambert has been notified of dates and times. Allergies As of Date: 04/28/2020 (No Known Allergies) Date Reviewed: 04/28/2020 Reviewed by: Luke (Experimental Worker) Austin - Fully Assessed Reason for Visit: Schedule Surgery [1330] Primary Visit Diagnosis:PVD (peripheral vascular disease) (HCC) [I73.9] Order(s):SURGICAL REQUEST - ELECTIVE (01/2020) [6500132] Order #: [id number]: 1 HANDP FOR SURGERY [K9052ORA] Order #: [id number] PRE-PROCEDURE AND PRE-OPERATIVE COVID [SQPOCOVD] Order #: [id number] FUTURE CBC [SQCBC] Order #: [id number] FUTURE BASIC METABOLIC PNL [SQBMP] Order #: [id number] FUTURE PROTHROMBIN TIME/PT [SQPT] Order #: [id number] FUTURE ECG COMPLETE [ECG01] Order #: [id number] FUTURE Prescriptions as of 04/28/2020 Sig: ASPIRIN [...] by MARIA ESTHER GUSMAN CNP on 04/28/20 Normal [facility] CNOVon 04-21-2020 CNOV Office Visit (AKURFL ) LYIDANNAY ([id number]) 1940 M Date Time Provider Department 04/21/20 1:30 PM YADI WHITE During your visit today, we recorded the following information about you: Weight Height 88 kg 1.778 m Yadi White DO, MBA 04/21/2020 3:13 PM Signed ?? [facility] [place] [facility] LOCATION: [address] [place] [address] NEW CONSULT VISIT PATIENT INFO: Elizabeth Modi [...] MG DAILY@0800 October 12, 2019 7:37am 10-12-2019 [facility] ([id number]) gabapentin (NEURONTIN) 600 mg tablet Take 600 [...] with more than 50% of the total xcjm-tn-ryhx time of the visit in counseling / coordination of care. Yadi White DO MBA Letter to: Dexter Reyes MD Referring Provider: DEXTER REYES CHI [[id number]] Allergies As of Date: 04/21/2020 (No Known Allergies) Date Reviewed: 04/21/2020 Reviewed by: Yadi White - Fully Assessed Reason for Visit: Kidney Problem [61] Visit Diagnosis:Other specified disorders of kidney and ureter [N28.89] Order(s):CT KIDNEY WO/W IVCON [3111690] Order #: [id number] FUTURE iv contrast (will be provided with [...] [facility] PRO[facility]ESSon 04-21-2020 PROGRESS HNO ID: [id number] Author: Yadi White Service: ? Author Type: Physician Type: Progress Notes Filed: 04/21/2020 3:13 PM Note Text: ?? [facility] [place] [facility] LOCATION: [address] [place] [address] NEW CONSULT VISIT PATIENT INFO: Elizabeth Modi [...] MG DAILY@0800 October 12, 2019 7:37am 10-12-2019 [facility] ([id number]) gabapentin (NEURONTIN) 600 mg tablet Take 600 [...] with more than 50% of the total lefu-dp-ikqb time of the visit in counseling / coordination of care. Yadi White DO MBA Letter to: Dexter Reyes MD [facility] CNOVon 03-31-2020 CNOV Office Visit (AGVASACC) ELIZABETH MODI ([id number]) 1940 M Date Time Provider Department 03/31/20 11:00 AM YRAN ALLEN During your visit today, we recorded the following information about you: Pulse Respiration Blood pressure Weight 78/minute 18/minute 124/70 88 kg Height 1.778 m Ryan Allen MD 03/31/2020 12:50 PM Signed I spent 15+ minutes in the visit, with more than 50% of+ the total uwfi-gq-vypb time of the visit in counseling / coordination of care. This note partially generated using Connexity voice recognition system. Mr. Modi and his daughter were seen in the office today for follow-up of his peripheral vascular disease. He's feeling up a complicated wound in the right below-knee stump but also has a left great toe nonhealing wound. I believe this is being followed by the fitter welder or the wound care center in the [facility]. He also notes that the prosthetic company is having trouble getting appropriate authorization for his prosthesis. Since the patient left I have call that office, [facility] [employer]. We have left a message from [...] appropriate authorization for were reviewed needs from [employer]. He has had a urologist in the past but can't remember the name in the [facility]. I would refer to the primary care office if they feel appropriate urologist is available locally in this patient. If not we will be happy to refer to a urologist in the [facility]. Hopefully within the next few [...] runoffs Primary Visit Diagnosis:PVD (peripheral vascular disease) ([facility]) [I73.9] Other Visit Diagnoses:Below knee amputation ([facility]) [S88.119A] Type 2 diabetes mellitus with other specified complication, without long-term current use of insulin ([facility]) [E11.69] Nonhealing nonsurgical wound [T14.8XXA] Prescriptions as [...] (HCC) [E44.0] 08/22/2019 PVD (peripheral vascular disease) ([facility]) [I73.9] 12/07/2019 Below knee amputation ([facility]) [S88.119A] 12/07/2019 Nonhealing surgical wound [T81.89XA] 12/09/2019 Letter Text Encounter Status:Closed by RYAN ALLEN MD on 03/31/20 Normal [facility] PROGRESSon 03-31-2020 PROGRESS HNO ID: [id number] Author: Ryan Allen Service: ? Author Type: Physician Type: Progress Notes Filed: 03/31/2020 12:50 PM Note Text: I spent 15+ minutes in the visit, with more than 50% of+ the total ions-rd-ektk time of the visit in counseling / coordination of care. This note partially generated using Connexity voice recognition system. Mr. Modi and his daughter were seen in the office today for follow-up of his peripheral vascular disease. He's feeling up a complicated wound in the right below-knee stump but also has a left great toe nonhealing wound. I believe this is being followed by the fitter welder or the wound care center in the [facility]. He also notes that the prosthetic company is having trouble getting appropriate authorization for his prosthesis. Since the patient left I have call that office, [facility] [employer]. We have left a message from [...] appropriate authorization for were reviewed needs from [employer]. He has had a urologist in the past but can't remember the name in the [facility]. I would refer to the primary care office if they feel appropriate urologist is available locally in this patient. If not we will be happy to refer to a urologist in the [facility]. Hopefully within the next few [...] is taking statin and aspirin medications. Normal [facility] GURWINDERN Telephone (AGVASACC) ELIZABETH MODI ([id number]) 1940 M Date Time Provider Department 03/04/20 [...] Encounter Status:Closed by LUDIVINA WHITFIELD on 03/04/20 [facility] CTA ABD/PEL/LOWER EXT WO/W I VCONon 02-28-2020 CTA ABD/PEL/LOWER EXT WO/W IVCON Final Report DATE OF EXAM: Feb 28 2020 4:00PM [place] [id number] - CTA ABD/PEL/LOWER EXT WO/W IVCON / [...] renal protocol CT or MRI. 2. Right pydxb-tuu-vzpj amputation. No subcutaneous fat stranding or fluid collection. Other chronic findings, as above. Electron Microscopist: ONEL Transcribe Date/Time: Mar 02 2020 2:59P Dictated by : ANDRE BUI MD This examination was interpreted and the report reviewed and electronically signed by: ANDRE BUI MD on Mar 02 2020 3:31PM EST Normal [facility] CNOVon 02-13-2020 CNOV Office Visit (AGVASACC) ELIZABETH MODI ([id number]) 1940 M Date Time Provider Department 02/13/20 1:30 PM MARIA ESTHER GUSMAN (NUCLEAR EQUIPMENT SALES ENGINEER, RN MEDICATION)AGJERZY During your visit today, we recorded the following information about you: Pulse Respiration Blood pressure Weight 76/minute 18/minute 118/64 88 kg Height 1.778 m Maria Esther Gusman APRN.RN MEDICATION, RN MEDICATION 02/13/2020 4:20 PM Signed Elizabeth Modi 79 [...] He has not been in contact with amiandos in some time, as he was advised to wait until cleared from the wound vac. Additionally, he reports that he's been seeing a soil specialist for the wounds on his left [...] Stable post op; OK to follow-up with Kristyn Palacios for RLE prosthetic; Will discuss with Dr. Allen plan for evaluation/treatment of LLE with continued wounds. PLAN: Will proceed with CTA to further evaluation LLE at this time. Pt encouraged to call with any questions, problems, concerns, or changes. The patient is currently taking a statin: Yes The patient is currently taking aspirin: Yes Maria Esther Gusman APRN.RN MEDICATION Referring Provider: SELF [200] Allergies As of [...] [I99.8] Order(s):CTA ABD/PEL LOWER EXTREM WO/W IVCON [[id number]] Order #: [id number] FUTURE iv contrast (will be provided with [...] EachRfl: 0 CREATININE BLD [SQCRET] Order #: [id number] FUTURE Prescriptions as of 02/13/2020 Sig: INSULIN [...] by MARIA ESTHER GUSMAN CNP on 02/13/20 Normal [facility] PROGRESSon 02-13-2020 PROGRESS HNO ID: [id number] Author: Maria Esther (Oil Field Equipment Mechanic Lean Process Deployment Consultant) GURWINDER Gusman Service: ? Author Type: Nurse [...] He has not been in contact with [facility] in some time, as he was advised to wait until cleared from the wound vac. Additionally, he reports that he's been seeing a soil specialist for the wounds on his left [...] Stable post op; OK to follow-up with [facility] for RLE prosthetic; Will discuss with Dr. Allen plan for evaluation/treatment of LLE with continued wounds. PLAN: Will proceed with CTA to further evaluation LLE at this time. Pt encouraged to call with any questions, problems, concerns, or changes. The patient is currently taking a statin: Yes The patient is currently taking aspirin: Yes Maria Esther Gusman APRN.[facility] 02-05-2020 JONAS Telephone ([place] ELIZABETH MODI ([id number]) 1940 M Date Time Provider Department 02/05/20 RYAN ALLEN During your visit today, we recorded the following information about you: Luke Pérez LPN 02/05/2020 10:51 AM Signed Millie from [facility] called stating that there has been [...] use W-D dressing BID. Thanks, Maria Esther Gusamn APRN.GURWINDER Pérez LPN 02/05/2020 11:24 AM Signed Relayed information to [facility] nurse. Acknowledged new order for wet [...] 01-08-2020 CNOV Office Visit (AGVASACC) ELIZABETH MODI ([id number]) 1940 M Date Time Provider Department 01/08/20 3:30 PM RYAN ALLEN During your visit today, we recorded the following information about you: Pulse Respiration Blood pressure Weight 78/minute 18/minute 126/70 88.9 kg Height 1.778 m Ryan Allen MD 01/08/2020 4:01 PM Signed This note was partially generated using Connexity voice recognition system. Is a postop visit [...] [S88.119A] Other Visit Diagnosis:PVD (peripheral vascular disease) ([facility] BE[facility]IORAL [facility]) [I73.9] Prescriptions as of 01/08/2020 Sig: INSULIN [...] MD on 01/08/20 [facility] Beau 01-08-2020 CNPN Telephone (AGVASACC) ELIZABETH MODI ([id number]) 1940 M Date Time Provider Department 01/08/20 RYAN ALLEN During your visit today, we recorded the following information about you: Luke Pérez LPN 01/08/2020 1:18 PM Signed [facility] nurse called to let us know that they are extending the home care to once a week x 5 weeks. Still currently has wound vac. Drainage and blood noted per nurse. Depth of 0.25mm. Maria Esther Gusman APRN.GURWINDER, GURWINDER 01/08/2020 1:42 PM Signed Noted. Thank you, Maria Esther Gusman APRN.RN MEDICATION Allergies As of Date: 01/08/2020 (No Known [...] wound [T81.89XA] 12/09/2019 Encounter Status:Closed by MARIA ESHTER GUSMAN GURWINDER on 01/08/20 Normal [facility] PROGRESSon 01-08-2020 PROGRESS HNO ID: [id number] Author: Ryan Allen Service: ? Author Type: Physician Type: Progress Notes Filed: 01/08/2020 4:01 PM Note Text: This note was partially generated using Connexity voice recognition system. Is a postop visit [...] continues to make progress with wound. Normal [facility] CASE MANAGEMon 12-11-2019 CASE MANAGEM HNO ID: [id number] Author: Tami Izquierdo) KAVIN Patricio Service: Care Management Author Type: Registered Nurse Type: Care Mgt Progress Note Filed: 12/11/2019 3:28 PM Note Text: CARE MANAGEMENT DISCHARGE NOTE SERVICE DATE: 12/11/2019 SERVICE TIME: 3:27 PM LOS: 2 days Admission Date: 12/09/2019 DISCHARGE ARRANGEMENT (list agency and phone number) Discharge Arrangement: Home Fpc Care: Nursing;OT;PT [facility] Phone: . CAREGIVER ASSESSMENT: Caregiver is ready, willing and able to meet the patient's needs as recommended by the inter-professional team:: Yes Does the patient have an acute stroke diagnosis, or has the patient had a stroke during this admission?: No Patient's transition needs and plan for meeting these needs: Home with c. HANDOFF COMMUNICATION: TRANSPORTATION ARRANGEMENTS: Transportation Arrangements: Car ADDITIONAL CONTACT RESOURCES: Pts wound vac approved through [facility]. SIGNATURE: Tami Patricio RN PATIENT NAME: Elizabeth Modi DATE: December 11, 2019 TIME: 3:27 PM PAGER/CONTACT #: [phone] [facility] CONSULT PROGon 12-11-2019 CONSULT PROG HNO ID: [id number] Author: Adali Murry Service: Wound Care Team Author Type: Nurse Specialist Type: Consult Progress Note Filed: 12/11/2019 2:39 PM Note Text: WOUND CARE CONSULT NUCLEAR EQUIPMENT SALES ENGINEER NOTE SERVICE DATE: 12/11/2019 SERVICE TIME: 1315 TIME SPENT (minutes): 45 REASON FOR CONSULT: Eval R BKA, wound vac change CHIEF COMPLAINT: c/o open wound to R lateral BKA Subjective HISTORY OF PRESENT ILLNESS: Mr. Modi is a 79 year old male who is seen today with S Manind Wound/air support control officer, and presented to hospital w/ R BKA [...] found under the Get Images tab on Optimal+. Photos are uploaded by the wound primary health care nurse and may not be immediately available for viewing. Contact the wound and ostomy care department with questions. SIGNATURE: Adali Murry APRN.CNS PATIENT NAME: Elizabeth Modi DATE: December 11, 2019 TIME: 2:24 PM CONTACT#: [id number] Normal [facility] Glucose Meteron 12-11-2019 Glucose [Mass/Vol] 126 mg/dL High 70-99 [facility] Comment on above: Result Comment: KAVIN Briones OTIFIED Performed By: #### M AG #### [place] [address] OPERATIVE NOon 12-11-2019 OPERATIVE NO HNO ID: [id number] Author: Ryan Allen Service: ? Author Type: Physician Type: Operative Report Filed: 12/11/2019 1:51 PM Note Text: [facility] - Operative Report ELIZABETH MODI : 1940 AGE: 79. SEX: M PATIENT TYPE: I HOSP SVC: [facility] LOCATION: [facility] ATTENDING PHYSICIAN: RYAN ALLEN CSN NUMBER: [id number] DATE OF SURGERY/PROCEDURE: 12/09/2019 INCISION/PROCEDURE START TIME: 10:54 AM INCISION CLOSE/PROCEDURE END TIME: 11:10 AM PREOPERATIVE DIAGNOSIS: Nonhealing wound, status post right below-knee amputation. POSTOPERATIVE DIAGNOSIS: Nonhealing wound, status post right below-knee amputation. SURGEON: Ryan Allen MD, FACS HAND TENNIS BALL COVERER: 1. Sunny Brito MD. 2. Mara Godinez SA. SURGERY/PROCEDURE: Irrigation and debridement of right lower extremity wound with placement of wound VAC. ANESTHESIA: General HISTORY: This is a 79-year-old gentleman, who has undergone multiple procedures with the Vascular Service at [facility]. Ultimately, unfortunately this has terminated in a below-knee amputation. In his followup, he was seen at the [facility] office in [place] by Dr. Gordo Figueroa and it was [...] satisfactory postoperative condition. Ryan Allen MD, FACS RGN:[id number] /[id number] cc:Macho Reyes MD [facility] PLAN OF CAREon 12-11-2019 PLAN OF CARE HNO ID: [id number] Author: Olga Parekh (Limousine And Hearse Upholsterer) Service: ? Author Type: ? Type: Plan of Care Filed: 12/11/2019 11:33 AM Note Text: MUFFLER TENDER BEDSIDE DELIVERY SURVEY 1. Patient to use [facility] Bedside Delivery - YES Insurance Information as follows: 2. Insurance card on file - YES 3. Credit card for payment - N/A Please call pharmacy bedside delivery at [phone] or [phone] if patient would like medications filled and delivered prior to discharge. Olga Parekh (Limousine And Hearse Upholsterer) [facility] PROGRESSon 12-11-2019 PROGRESS HNO ID: [id number] Author: Rohan Duran DO Service: Vascular Surgery [...] questions or concerns Mon-Fri 6a-5p please page [phone]. After 5pm and on Weekends and Holidays, please page [phone] if in ICU or [phone] if on RNF. Subjective SUBJECTIVE: NAEON. Did [...] Air IANDO: Date 12/10/19 07 - 12/11/19 0612/11/19 07 - 12/12/19 0659 Shift 0674-0266 6144-1722 9319-2572 24 Hour Total 9288-3502 7250-8455 5987-0305 24 Hour Total INTAKE Shift Total OUTPUT Urine 386 771 9891 Void (ml) 054 753 5209 Drains 0 0 Negative Pressure: Output (mL) 0 0 # of BMs Number of BMs 1 x 1 x Shift Total 981 195 7779 Weight (kg) 88.2 88.2 88.2 88.2 88.2 [...] ICU or 2174 if on RNF. Normal [facility] PT EDon 12-11-2019 PT ED HNO ID: [id number] Author: Isac Navarro (Pharmacist) Service: Pharmacy Author [...] Cap Generic drug: Cholecalciferol (Vitamin D3) Normal [facility] THERAPY NTon 12-11-2019 THERAPY NT HNO ID: [id number] Author: Maricarmen (Otr/LSmitha Good Service: Occupational Therapy Author Type: Occupational Therapist Type: Therapy (PT/OT/Speech/Resp) Filed: 12/11/2019 3:31 PM Note Text: Occupational Therapy Evaluation SERVICE DATE: 12/11/2019 SERVICE TIME: 1435 to 1459 ROOM: [id number] Recommended Discharge Disposition: Home OT Recommended Discharge [...] living (ADL) Interventions Provided: Evaluation $ Evaluation-Moderate (98115) Billed Units: 1 unit OT Evaluation Moderate [...] December 11, 2019 TIME: 3:28 PM Normal [facility] THERAPY NT HNO ID: [id number] Author: Marilyn (PtSmitha Flores Service: Physical Therapy Author Type: Physical Therapist Type: Therapy (PT/OT/Speech/Resp) Filed: 12/11/2019 2:48 PM Note Text: Physical Therapy Evaluation SERVICE DATE: 12/11/2019 SERVICE TIME: 1341 to 1408 ROOM: [place] [address] Recommended Discharge Disposition: Home PT Recommended Discharge [...] Difficulty walking-musculoskeleta l Interventions Provided: Evaluation;Therapeutic Activity (61790) $ Evaluation-Moderate (97700) Billed Units: 1 unit History and examination of body systems see assessment section above. This patient?s clinical presentation is evolving. The patient required a moderate complexity evaluation. Therapeutic Activity (71850) Treatment Minutes: 11 1 unit Skilled Intervention(s): [...] December 11, 2019 TIME: 2:44 PM Normal [facility] Basic Metabolic Panelon 06- Anion gap [Moles/Vol] 13 mmol/L Normal 9-18 [facility] Comment on above: Performed By: #### C BC1 #### [facility] [address] [place], [place] [address] Calcium [Mass/Vol] 9.0 mg/dL Normal 8.5-10.2 [facility] Comment on above: Performed By: #### C BC1 #### [facility] [address] [place], [place] [address] Chloride [Moles/Vol] 100 mmol/L Normal 97-105 [facility] Comment on above: Performed By: #### C BC1 #### [facility] [address] [place], [place] [address] CO2 Blood 25 mmol/L Normal 22-30 [facility] Comment on above: Performed By: #### C BC1 #### [facility] [address] [place], [place] [address] Creatinine [Mass/Vol] 1.14 mg/dL Normal 0.73-1.22 [facility] Comment on above: Performed By: #### C BC1 #### [facility] [address] [place], [place] [address] Glucose [Mass/Vol] 113 mg/dL High 74-99 [facility] Comment on above: Result Comment: The [place] Diabetes Association (ADA) provides guidance for cutoff [...] Standards of Medical Care in Diabetes 2016; [place] Diabetes Association. Diabetes Care. 2016;39(Suppl 1). Performed By: #### C BC1 #### [facility] [address] [place], [place] [address] Potassium [Moles/Vol] 4.1 mmol/L Normal 3.7-5.1 [facility] Comment on above: Performed By: #### C BC1 #### [facility] [address] [place], [place] [address] Sodium [Moles/Vol] 138 mmol/L Normal 136-144 [facility] Comment on above: Performed By: #### C BC1 #### [facility] [address] [place], [place] [address] Urea nitrogen [Mass/Vol] 22 mg/dL Normal 9-24 [facility] Comment on above: Performed By: #### C BC1 #### 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 Last discharge within 30 days: No Advance Directive: Current Advance Directive: Health Care Power of Improvement Director In Chart: No Horse Rancher Attempted to Assist with AD Completion: No [...] Services or Home Care?: Home Health Care Agency([facility]) Equipment Prior to Admission: Wheelchair;Other: See Comment(Electric scooter and slide board) SOCIAL: Living Arrangements: Home Lives With: Daughter Financial Resources: RetiredPrimary Contact: Extended Emergency Contact Information Primary Emergency Contact: Eunice Suee Mobile Relation: Daughter Supportive Patient Contact:: Yes [...] Mostly I feel financially burdened by my rlq-ar-clqjtj expenses for my prescription medication:: 0 - Disagree Somewhat Risk Score: 0 Patient is categorized as: Low risk < 2 Are you interested in bedside delivery of your medications? No Is Patient Psychosocially Complex?: No ASSESSMENT AND PLAN: Medical Needs: Medical Needs: Two or more chronic diseases Psychosocial Needs: Psychosocial Needs: None FREEDOM OF CHOICE EXPLAINED: [place]mlin of Choice Given: Yes(Pt would like to [facility] with [facility] POTENTIAL TRANSITION PLANS Home Care Spoke with pt at the bedside. Pt states that he has been staying with his daughter. [facility] with [facility]. Plan for pt to return [facility]. Pt will need wound vac at d/c- script placed on chart to be signed. Family to transport home when medically stable. Will follow. SIGNATURE: Tami Patricio RN PATIENT NAME: Elizabeth Modi DATE: December 10, 2019 TIME: 10:47 AM PAGER/CONTACT #: [phone] Normal [facility] Hemogramon 12-10-2019 Erythrocyte distribution width (RBC) [Ratio] 14.1 % Normal 11.6-14.4 [facility] Comment on above: Performed By: #### P 8 #### [facility] [address] [place] [address] Hematocrit (Bld) [Volume fraction] 38.9 % Low 40.1-51.0 [facility] Comment on above: Performed By: #### P 8 #### [facility] [address] [place] [address] Hemoglobin (Bld) [Mass/Vol] 12.3 g/dL Low 13.7-17.5 [facility] Comment on above: Performed By: #### P 8 #### [facility] [address] [place] [address] MCH (RBC) [Entitic mass] 27.8 pg Normal 25.7-32.2 [facility] Comment on above: Performed By: #### P 8 #### [facility] [address] [place] [address] MCHC (RBC) [Mass/Vol] 31.6 % Low 32.3-36.5 [facility] Comment on above: Performed By: #### P 8 #### [facility] [address] [place] [address] MCV (RBC) [Entitic vol] 88.0 fL Normal 83.2-95.[address] [facility] Comment on above: Performed By: #### P 8 #### [facility] [address] [place] [address] Platelet mean volume (Bld) [Entitic vol] 10.5 fL Normal 8.7-12.0 [facility] Comment on above: Performed By: #### P 8 #### [facility] [address] [place] [id number] Platelets (Bld) [#/Vol] 285 thou/cmm Normal 141-365 [facility] Comment on above: Performed By: #### P 8 #### [facility] [address] [place], [place] [address] RBC (Bld) [#/Vol] 4.42 mil/cmm Low 4.63-6.08 [facility] Comment on above: Performed By: #### P 8 #### [facility] [address] [place], [place] [address] RDW SD 45.4 fl Normal 36.1-45.8 [facility] Comment on above: Performed By: #### P 8 #### [facility] [address] [place], [place] [address] WBC (Bld) [#/Vol] 9.86 thou/cmm High 4.23-9.07 [facility] Comment on above: Performed By: #### P 8 #### [facility] [address] [place], [place] [address] MDRD GFRon 12-10-2019 GFR/1.73 sq M predicted among non-blacks MDRD (S/P/Bld) [Vol rate/Area] mL/min/{1.73_m2} Normal >60mL/min/1 .73m2 [facility] Comment on above: Result Comment: If t he patient is , multiply the result by 1.210. Performed By: #### M AG #### [facility] [address] [place], [place] [address] PLAN OF CAREon 12-10-2019 PLAN OF CARE HNO ID: [id number] Author: Isac Navarro (Pharmacist) Service: Pharmacy Author [...] medication history: Yes Reconciliation completed? Yes All VP REVENUE CYCLE medications addressed by LIP Additional comments: ? Spoke with patient's daughter and reviewed dispensing data of [facility] ? Patient receives all acute meds from [facility]; gets some maintenance meds from [facility] by mail ? Patient has been hospitalized for an extended period this spring, skewing refill data ? Has recently begun using Humalog--discontinued most oral hypoglycemics at that time (see below). Continues using metformin ? Augmentin-875 begun 12-04-2019. This is/was a 14-day course of therapy ? Patient is ordered to use KCl 20mEq BID but has only been using this once daily [employer] REVENUE CYCLE Paged Gen Surgery (2123) about these findings Neuqi-ex-Pmdoqdqvi Medication List Adjustments: Medication Regimen Changes: Gabapentin [...] Allergies: ALLERGIES No Known Allergies Preferred Pharmacy: [facility] Current VP REVENUE CYCLE Medications: Prior to Admission medications as of [...] PHARMACIST December 10, 2019 2:15 PM Normal [facility] PROGRESSon 12-10-2019 PROGRESS HNO ID: [id number] Author: Rohan Duran DO Service: Vascular Surgery [...] questions or concerns Mon-Fri 6a-5p please page [phone]. After 5pm and on Weekends and Holidays, please page [phone] if in ICU or [phone] if on RNF. Subjective SUBJECTIVE: NAEON. Tolerating [...] 0659 12/10/19 07 - 12/11/19 0659 Shift 2355-3894 8694-3792 1643-5626 24 Hour Total 2594-0483 4513-9092 0537-2852 24 Hour Total INTAKE IV 400 400 OR Crystalloid intake (mL) 300 300 Volume (mL) (lactated ringers infusion) 100 100 Shift Total 400 400 OUTPUT Urine 891 442 2516 Void (ml) 634 933 5075 Shift Total 469 185 1720 Weight (kg) 88.2 88.2 88.2 88.2 88.2 [...] ANES [place] 12-09-2019 ANES POST HNO ID: [id number] Author: Sal Ochoa Service: Anesthesiology Author Type: [...] ANES PREOPon 12-09-2019 ANES PREOP HNO ID: [id number] Author: Sal Ochoa Service: Anesthesiology Author Type: [...] File Prior to Encounter Medication Sig - frwik-6s-rmy-epa-fish oil-D3 667-250 mg-unit cap Take 1 tablet [...] December 09, 2019 TIME: 9:05 AM CSN: [id number] [facility] BRIEF OP NOTon 12-09-2019 BRIEF OP NOT HNO ID: [id number] Author: Sunny Brito Service: Vascular Surgery Author [...] BRIEF OPERATIVE / PROCEDURE NOTE LOG ID: [id number] SURGERY/PROCEDURE DATE: 12/09/2019 INCISION/PROCEDURE START TIME: 10:54 AM INCISION CLOSE/PROCEDURE END TIME: 11:10 AM SURGEON(S)/PROCEDURALI ST(S) AND HAND TENNIS BALL COVERER(S): Surgeon(s) and Role: * Ryan Allen - Primary * Sunny Brito - Resident - Assisting Latex Thread Machine Operator: Mara Godinez SA SURGERY/PROCEDURE(S): irrigation and debridement right lower extremity wound, placement of wound vac ANESTHESIA: General FINDINGS: draining right lower extremity wound ESTIMATED BLOOD LOSS: 2 mls SPECIMENS: debrided tissue COMPLICATIONS: None PRE-OP/PRE-PROCEDURE DIAGNOSIS: right lower extremity wound POST-OP/POST-PROCEDURE DIAGNOSIS: Same as Preop SIGNATURE: Sunny Brito MD PATIENT NAME: Elizabeth Modi DATE: December 09, 2019 TIME: 11:45 AM PAGER/CONTACT #: [facility] Cult and Smr CAROLINE and AERon 0 12-09-2019 Cult and Smr CAROLINE and AER Test performed at [facility] Moderate Mixed skin javier. No anaerobic organisms cultured Few Gram positive cocci Few Polymorphonuclear leukocytes Normal [facility] Comment on above: Performed By: #### P 8 #### [facility] [address] [place] [id number] HISTORY PHYSICALon 0 HISTORY PHYSICAL HNO ID: [id number] Author: Sunny Brito Service: Vascular Surgery Author [...] , Rfl: , 12/08/2019 at Unknown time cvbpn-1n-pnj-epa-fish oil-D3 667-250 mg-unit cap, Take 1 tablet [...] NURSING PROGon 12-09-2019 NURSING PROG HNO ID: [id number] Author: Dakota (Rn) KAVIN Rodriguez Service: ? Author Type: Registered Nurse Type: Nursing Progress Note Filed: 12/09/2019 12:59 PM Note Text: FBG done by Belkis VALE [facility] PROGRESSon 12-07-2019 PROGRESS HNO ID: [id number] Author: Gordo Figueroa Service: ? Author Type: [...] Outpatient Medications Medication Sig Dispense Refill - reypy-1g-ubr-epa-fish oil-D3 667-250 mg-unit cap Take 1 tablet [...] up with us next Monday at the [place] facility. Gordo Figueroa MD [facility] CNOVon 12-06-2019 [facility] Office Visit (AGMIL) ELIZABETH MODI ([id number]) 1940 M Date Time Provider Department 12/06/19 [...] Outpatient Medications Medication Sig Dispense Refill - uwqpl-0e-ywb-epa-fish oil-D3 667-250 mg-unit cap Take 1 tablet [...] up with us next Monday at the [place] facility. Gordo Figueroa MD Referring Provider: SELF [200] Allergies As of Date: 12/06/2019 (No Known Allergies) Date Reviewed: 12/06/2019 Reviewed by: Ryan Allen - Fully Assessed Reason for Visit: Peripheral Vascular Disease (PVD) [3545] CmtGerri Hale is post op 09/05/19 Revision Rt BKA Primary Visit Diagnosis:PVD (peripheral vascular disease) ([facility]) [I73.9] Other Visit Diagnosis:Below knee amputation ([facility]) [S88.119A] Prescriptions as of 12/06/2019 Sig: OMEGA-3S 667 NG-XGM-QWW-FISH * Take 1 tablet by mouth once [...] [facility] 12-06-2019 GURWINDERN Telephone (AGBand Digital) ELIZABETH MODI ([id number]) 1940 M Date Time Provider Department 12/06/19 RYAN ALLEN During your visit today, we recorded the following information about you: Allergies As of Date: 12/06/2019 (No Known Allergies) Date Reviewed: 12/06/2019 Reviewed by: Gordo Figueroa - Fully Assessed Reason for Visit: Schedule Surgery [1330] Primary Visit Diagnosis:PVD (peripheral vascular disease) ([facility]) [I73.9] Order(s):SURGICAL REQUEST - ELECTIVE [0101941] Order #: [id number]: 1 HANDP FOR SURGERY [[id number]] Order #: [id number] PRE-PROCEDURE AND PRE-OPERATIVE COVID [SQPOCOVD] Order #: [id number] FUTURE CBC [SQCBC] Order #: [id number] FUTURE BASIC METABOLIC PNL [SQBMP] Order #: [id number] FUTURE PROTHROMBIN TIME/PT [SQPT] Order #: [id number] FUTURE Prescriptions as of 12/06/2019 Sig: OMEGA-3S 667 QO-XPF-NYO-FISH * Take 1 tablet by mouth once [...] (84.369 kg) Outpatient Medications as of 12/09/19: rqbnz-5h-diu-epa-fish oil-D3 667-250 mg-unit cap zinc sulfate (ORAZINC [...] the following basenames: K,HCT Progress Notes ([facility]): Gordo Figueroa MD 12/07/2019 10:39 AM Signed [...] Outpatient Medications Medication Sig Dispense Refill - bxzfg-3x-swn-epa-fish oil-D3 667-250 mg-unit cap Take 1 tablet [...] up with us next Monday at the [facility]. Gordo Figueroa MD [facility] CASE MANAGEMon 09-11-2019 CASE MANAGEM HNO ID: [id number] Author: Tiffanie (Rn) KAVIN Travis Service: Care Management Author Type: Registered Nurse Type: Care Mgt Progress Note Filed: 09/11/2019 12:54 PM Note Text: CARE MANAGEMENT DISCHARGE NOTE SERVICE DATE: 09/11/2019 SERVICE TIME: 12:42 PM LOS: 21 days Admission Date: 08/21/2019 DISCHARGE ARRANGEMENT (list agency and phone number) Discharge Arrangement: detention facility Was an expedited discharge program used?: No Provider Name: [facility] CAREGIVER ASSESSMENT: HANDOFF COMMUNICATION: Handoff to: Primary Care Physician TRANSPORTATION ARRANGEMENTS: Transportation Arrangements: Ambulance/[facility] Agency and Phone #:: [facility] ( [facility] ) [phone] / [phone] Type of Service: BLS Non-emergency Is Patient Medicaid Pending?: No Discussion of financial coverage occurred with: Family [employer]al Baler Location: [facility] Destination: [facility] Financial Care Management Responsibility: None ADDITIONAL CONTACT RESOURCES: none Auth is obtained and patient has been discharged to [facility]. [facility] is transporting patient via cot at 13:00. Patient notified of discharge. He initially resisted stating he wanted to go to [facility]. Explained that he asked [employer] to have his dtr Angelic makethe decision and she chose [facility] Re[facility]. Patient reluctantly agreed to discharge. Encouraged patient to discuss with staff there if he is not happy with the rehab and still wishes to go to [place]. Patent's dtr Angelic notified. SIGNATURE: Tiffanie Travis RN PATIENT NAME: Elizabeth Modi DATE: September 11, 2019 TIME: 12:41 PM PAGER/CONTACT #: [phone] [facility] CASE MANAGEM HNO ID: [id number] Author: Tiffanie (Rn) KAVIN Travis Service: Care Management Author Type: Registered Nurse Type: Care Mgt Progress Note Filed: 09/11/2019 9:48 AM Note Text: CARE MANAGEMENT PROGRESS NOTE SERVICE DATE: 09/11/2019 SERVICE TIME: 9:47 AM LOS: 21 days Auth received for [facility]. MD notified. SIGNATURE: Tiffanie Travis RN PATIENT NAME: Elizabeth Modi DATE: September 11, 2019 TIME: 9:47 AM PAGER/CONTACT #: [phone] Normal [facility] CONSULT PROGon 09-11-2019 CONSULT PROG HNO ID: [id number] Author: Doris Eden Service: Endocrinology Author Type: Physician Type: Consult Progress Note Filed: 09/11/2019 7:56 AM Note Text: ENDOCRINOLOGY CONSULT PROGRESS NOTE SERVICE DATE: 09/11/2019 SERVICE TIME: 7:40 AM Subjective INTERVAL HPI: Pt followed for diabetes mellitus type 2 with complications. Tr from [place]; adm for right foot infection and gangrene; [...] 2019 TIME: 7:56 AM PAGER: [phone] Normal [facility] Glucose Meteron 09-11-2019 Glucose [Mass/Vol] 173 mg/dL High 70-99 [facility] Comment on above: Result Comment: RN N OTIFIED Performed By: #### G LMET #### [facility] [address] [place] [address] NUTRITIONon 09-11-2019 NUTRITION HNO ID: [id number] Author: Snow Serna Service: Nutrition Therapy Author Type: Registered Dietitian Type: Nutrition Filed: 09/11/2019 12:51 PM Note Text: NUTRITION THERAPY PROGRESS NOTE SERVICE DATE: 09/11/2019 SERVICE TIME: 12:36 PM Nutrition Assessment: Recommended Malnutrition Diagnosis: Moderate Protein-Calorie Malnutrition (09/06/19 1155 : Tanja (Rd) ALEIDA Byrne) Estimated kilocalorie needs: 6749-5081 Calorie Calculation Method: 30-35 kcals/kg Estimated protein [...] September 11, 2019 TIME: 12:36 PM PAGER: [phone] [facility] PLAN OF CAREon 09-11-2019 PLAN OF CARE HNO ID: [id number] Author: Francine Pineda (Pharmacist) Service: Pharmacy Author [...] PHARMACIST September 11, 2019 11:45 AM Pager: [phone] 09/11/2019 11:45 AM Medication List START taking [...] IR 5 mg immediate release tablet Normal [facility] PROGRESSon 09-11-2019 PROGRESS HNO ID: [id number] Author: Tom Prescott DO Service: General Surgery [...] questions or concerns Mon-Mon 6a-5p please page [phone]. After 5pm and on Weekends and Holidays, please page [phone] if in ICU or [phone] if on RNF. Subjective SUBJECTIVE: Patient seen and examined this morning. SARATH. States his pain is currently 8/10 in severity, took tylenol mostly for pain control. Dressing taken down this morning, incision examined. Still awaiting precert at [facility]. Continues to do knee exercises, in knee [...] Date 09/10/19 0700 - 09/11/19 0659 09/11/19 07 - 09/12/19 0659 Shift 0507-2944 5976-3411 0691-2492 24 Hour Total 7419-0719 6330-5619 6016-1641 24 Hour Total INTAKE PO 120 120 PO 120 120 Shift Total 120 120 OUTPUT Urine 100 568 6250 2120 Void (ml) 690 742 0649 2120 Urine Not Saved. 1 x 1 x # of BMs Number of BMs 1 x 1 x 2 x Shift Total 813 466 8221 2120 Weight (kg) 87.7 87.7 87.6 87.6 [...] C/D/I with luly- healing well, minimal edema-stump pier worker in place. SKIN: Skin color, texture, turgor [...] lower extremity angiogram with partial occlusion R SCARFER OPERATOR, reconstitution at R below knee pop, 2-vessel runoff. Antibiotics stopped 08/23, remains non-septic. 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 09/02 PVR R calf 0.51, R low thigh 0.74. 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 Allen SIGNATURE: Tom Prescott DO PATIENT NAME: Elizabeth Modi DATE: September 11, 2019 TIME: 6:48 AM Vascular AND Thoracic Surgery Service Pager: For questions or concerns Mon-Fri 6a-5p please page [phone]. After 5pm and on Weekends and Holidays, please page [phone] if in ICU or [phone] if on RNF. Normal [facility] THERAPY NTon 09-11-2019 THERAPY NT HNO ID: [id number] Author: Ramón Obrien) Poppy Service: Physical Therapy Author Type: Monitoring Coordinator Type: Therapy (PT/OT/Speech/Resp) Filed: 09/11/2019 12:04 PM Note Text: Attestation signed by Troi (Pt) Santos at 09/12/2019 3:52 PM I reviewed and agree with the documentation corresponding to this therapy visit. SIGNATURE: Tori Graham PT DATE: September 12, 2019 TIME: 3:52 PM Physical Therapy Treatment SERVICE DATE: 09/11/2019 SERVICE TIME: 1036 to 1111 ROOM: [id number] Recommended Discharge Disposition: Acute Rehab Recommended Discharge [...] l;Muscle Weakness (generalized) Interventions Provided: Therapeutic Exercise (01048);Therapeutic Activity (37079) Therapeutic Exercise (20070) Treatment Minutes: 18 1 unit Skilled Intervention(s): [...] and quad sets x10 hour. Therapeutic Activity (42488) Treatment Minutes: 17 1 unit Skilled Intervention(s): [...] Environment Patient Lives With: Self/Alone Assistance Available: multimedia journalist Entry To Home: Stairs;With Rail Number Of [...] September 11, 2019 TIME: 11:55 AM Normal [facility] CONSULT PROGon 09-10-2019 CONSULT PROG HNO ID: [id number] Author: Doris Eden Service: Endocrinology Author Type: Physician Type: Consult Progress Note Filed: 09/10/2019 7:55 AM Note Text: ENDOCRINOLOGY CONSULT PROGRESS NOTE SERVICE DATE: 09/10/2019 SERVICE TIME: 7:35 AM Subjective INTERVAL HPI: Pt followed for diabetes mellitus type 2 with complications. Tr from [facility]; adm for right foot infection and gangrene; [...] RRR Abdomen soft, no masses Extremities: has dressing/pier worker on R leg stump; dressing on left [...] September 10, 2019 TIME: 7:55 AM PAGER: [phone] Normal [facility] PROGRESSon 09-10-2019 PROGRESS HNO ID: [id number] Author: Jennifer Crooks Service: Vascular Surgery Author [...] Room Air IANDO: Date 09/09/19699 - 09/10/19 0609/10/19 07 - 09/11/19 0659 Shift 8473-9435 7172-3637 6872-4997 24 Hour Total 1258-6068 5501-5131 6711-6680 24 Hour Total INTAKE Shift Total OUTPUT Urine 900 144 4328 Void (ml) 454 848 8280 # of BMs Number of BMs 1 x 1 x 2 x Shift Total 105 056 9053 Weight (kg) 87.7 87.7 87.7 87.7 87.7 [...] Date Noted - Malnutrition of moderate degree ([facility]) 08/22/2019 - Gangrene of foot ([facility]) 08/21/2019 - Diabetes ([facility]) 08/21/2019 - HTN (hypertension) 08/21/2019 - Dyslipidemia 08/21/2019 - Hypothyroidism 08/21/2019 79 year old male with PMH of thyroid disease, HTN, dyslipidemia,claudicat ion, DM. 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 Antibiotics stopped 08/23, remains non-septic. 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 09/02 PVR R calf 0.51, R low thigh 0.74. 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 ? Plan: -?DIET HEART HEALTHY? 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 Dressing changed re-applied stump pier worker today. Knee immobilize q4hr - Pain control - PT/OT?recs:?acute rehab - [facility] ppx - Mobilization as able, out of bed to chair?as tolerated - PAD - continue statin?and aspirin - Dispo planning: awaiting precert to [facility] Vascular AND Thoracic Surgery Service Pager: For questions or concerns Mon-Mon 6a-5p please page [phone]. After 5pm and on Weekends and Holidays, please page [phone] if in ICU or [phone] if on RNF. SIGNATURE: Jennifer Crooks MD PATIENT NAME: Elizabeth Modi DATE: September 10, 2019 TIME: 6:28 AM Pager: [phone] [facility] THERAPY NTon 09-10-2019 THERAPY NT HNO ID: [id number] Author: Ramón Obrien) Poppy Service: Physical Therapy Author Type: Monitoring Coordinator Type: Therapy (PT/OT/Speech/Resp) Filed: 09/10/2019 12:18 PM Note Text: Attestation signed by Tori SantiagoPtSmitha Graham at 09/11/2019 11:35 AM I reviewed and agree with the documentation corresponding to this therapy visit. SIGNATURE: Tori Graham PT DATE: September 11, 2019 TIME: 11:35 AM Physical Therapy Treatment SERVICE DATE: 09/10/2019 SERVICE TIME: 1043 to 1108 ROOM: [id number] Recommended Discharge Disposition: Acute Rehab Recommended Discharge [...] l;Muscle Weakness (generalized) Interventions Provided: Therapeutic Activity (16956) Therapeutic Activity (40891) Treatment Minutes: 25 2 units Skilled Intervention(s): [...] Environment Patient Lives With: Self/Alone Assistance Available: multimedia journalist Entry To Home: Stairs;With Rail Number Of [...] September 10, 2019 TIME: 12:09 PM Normal [facility] Basic Panelon 09-09-2019 Creatinine [Mass/Vol] 0.73 mg/dL Normal 0.67-1.17 [facility] Comment on above: Result Comment: Use of this assay is not recommended for patients undergoing treatment with phenindione, due to the potential for falsely depressed results. Performed By: #### C BC1 #### [facility] [address] [place], [place] [address] Anion gap [Moles/Vol] 13 mmol/L Normal 8-16 [facility] Comment on above: Performed By: #### C BC1 #### [facility] [address] [place], [place] [address] CO2 [Moles/Vol] 24 mmol/L Normal 21-32 [facility] Comment on above: Performed By: #### C BC1 #### [address] [address] Urea nitrogen [Mass/Vol] 23 mg/dL High 7-18 [facility] Comment on above: Performed By: #### C BC1 #### [facility] [address] [place], [place] [address] Calcium [Mass/Vol] 8.9 mg/dL Normal 8.5-10.1 [facility] Comment on above: Performed By: #### C BC1 #### [facility] [address] [place], [place] [address] Glucose [Mass/Vol] 79 mg/dL Normal 70-99 [facility] Comment on above: Performed By: #### C BC1 #### [facility] [address] [place], [place] [address] Chloride [Moles/Vol] 100 mmol/L Normal 98-107 [facility] Comment on above: Performed By: #### C BC1 #### [facility] [address] [place], [place] [address] Potassium [Moles/Vol] 4.0 mmol/L Normal 3.5-5.1 [facility] Comment on above: Performed By: #### C BC1 #### [address] [address] Sodium [Moles/Vol] 133 mmol/L Low 136-145 [facility] Comment on above: Performed By: #### C BC1 #### [place] [address] CASE MANAGEMon 09-09-2019 CASE MANAGEM HNO ID: [id number] Author: Christina Perez Service: Care Management Author Type: ? Type: Care Mgt Progress Note Filed: 09/09/2019 11:40 AM Note Text: CARE MANAGEMENT PROGRESS NOTE SERVICE DATE: 09/09/2019 SERVICE TIME: 1000 LOS: 19 days IMM Follow Up Copy Given: Yes(verbal reminder given regarding IMM) Copy given to:: Patient Method: By Phone(covNeomatrix protocal) SIGNATURE: Christina Perez PATIENT NAME: Elizabeth Modi DATE: September 09, 2019 TIME: 11:40 AM PAGER/CONTACT #: [phone] [facility] CASE MANAGEM HNO ID: [id number] Author: Tami SantiagoRn) KAVIN Patricio Service: Care Management Author Type: Registered Nurse Type: Care Mgt Progress Note Filed: 09/09/2019 9:15 AM Note Text: CARE MANAGEMENT PROGRESS NOTE SERVICE DATE: 09/09/2019 SERVICE TIME: 9:14 AM LOS: 19 days Chart reviewed. Precert pending for [facility] rehab. Pt will need cot for transport at d/c. Will follow. SIGNATURE: Tami Patricio RN PATIENT NAME: Elizabeth Modi DATE: September 09, 2019 TIME: 9:14 AM PAGER/CONTACT #: [phone] [facility] CONSULT PROGon 09-09-2019 CONSULT PROG HNO ID: [id number] Author: Doris Eden Service: Endocrinology Author Type: Physician Type: Consult Progress Note Filed: 09/09/2019 8:25 AM Note Text: ENDOCRINOLOGY CONSULT PROGRESS NOTE SERVICE DATE: 09/09/2019 SERVICE TIME: 8:00 AM Subjective INTERVAL HPI: Pt followed for diabetes mellitus type 2 with complications. 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 Had LE angiogram on 08/26. Had right femoral endarterectomy on 3/16. Was in ICU, tr to floor on 09/02. 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 D/C plan for Rehab when stable. Pt has occ pain in right leg stump, worse with immoblizer. No SOB, no nausea. DIET HEART HEALTHY Recent Labs 09/09/19 0557 09/08/193 09/08/19 1637 09/08/19 1102 09/08/19 0446 09/07/19 [...] RRR Abdomen soft, no masses Extremities: has dressing/pier worker on R leg stump; dressing on left [...] 2019 TIME: 8:25 AM PAGER: [phone] Normal [facility] Hemogramon 09-09-2019 Erythrocyte distribution width (RBC) [Ratio] 15.9 % High 11.6-14.4 [facility] Comment on above: Performed By: #### P 8 #### [place] [address] Hematocrit (Bld) [Volume fraction] 27.5 % Low 40.1-51.0 [facility] Comment on above: Performed By: #### P 8 #### [address] [address] Hemoglobin (Bld) [Mass/Vol] 8.8 g/dL Low 13.7-17.5 [facility] Comment on above: Performed By: #### P 8 #### [place] [id number] MCH (RBC) [Entitic mass] 29.2 pg Normal 25.7-32.2 [facility] Comment on above: Performed By: #### P 8 #### [facility] [address] [place] [address] MCHC (RBC) [Mass/Vol] 32.0 % Low 32.3-36.5 [facility] Comment on above: Performed By: #### P 8 #### [facility] [address] [place] [address] MCV (RBC) [Entitic vol] 91.4 fL Normal 83.2-95.[address] [facility] Comment on above: Performed By: #### P 8 #### [facility] [address] [place] [address] Platelet mean volume (Bld) [Entitic vol] 9.6 fL Normal 8.7-12.0 [facility] Comment on above: Performed By: #### P 8 #### [facility] [address] [place] [address] Platelets (Bld) [#/Vol] 505 thou/cmm High 141-365 [facility] Comment on above: Performed By: #### P 8 #### [facility] [address] [place] [address] RBC (Bld) [#/Vol] 3.01 mil/cmm Low 4.63-6.08 [facility] Comment on above: Performed By: #### P 8 #### [facility] [address] [place] [address] RDW SD 51.8 fl High 36.1-45.8 [facility] Comment on above: Performed By: #### P 8 #### [facility] [address] [place] [id number] WBC (Bld) [#/Vol] 12.29 thou/cmm High 4.23-9.07 [facility] Comment on above: Performed By: #### P 8 #### [facility] [address] [place] [address] MDRD GFRon 09-09-2019 GFR/1.73 sq M predicted among non-blacks MDRD (S/P/Bld) [Vol rate/Area] mL/min/{1.73_m2} Normal >60mL/min/1 .73m2 [facility] Comment on above: Result Comment: If t he patient is , multiply the result by 1.210. Performed By: #### C BC1 #### [address] [address] Magnesium Bloodon 09-09-2019 Magnesium [Mass/Vol] 1.3 mg/dL Low 1.6-2.6 [facility] Comment on above: Performed By: #### C _ANA #### [address] [address] PLAN OF CAREon 09-09-2019 PLAN OF CARE HNO ID: [id number] Author: Francine Pineda (Pharmacist) Service: Pharmacy Author Type: Pharmacist Type: Plan of Care Filed: 09/09/2019 11:32 AM Note Text: MEDICATION HISTORY AND MEDICATION RECONCILIATION Patient Name:Nelson Modi : 1940 Source of history:[facility] [address] [place] [address] [place], [place] [id number] Medication Nonadherence Identified: No barriers noted- up to date on refills The above information represents the best possible medication history: Yes Reconciliation completed? Yes All VP RE[employer]UE CYCLE medications addressed by LIP Additional comments: [id number] Medication List Adjustments: Medication Regimen Changes: None Medications Added: None Medications Removed: None Short-Term Medications: None Further Clarification Required: None Patient is a 30 day readmission: No Patient Interested in Bedside Delivery: No Time Spent Reviewing Patient's Medications: 40 minutes Allergies: ALLERGIES No Known Allergies [facility] [address] [address] - [address] [place] [address] ?- [phone] Current [employer] CYCLE Medications: Prior to Admission medications as of [...] PHARMACIST September 09, 2019 11:24 AM Normal [facility] PROGRESSon 09-09-2019 PROGRESS HNO ID: [id number] Author: Tom Prescott DO Service: General Surgery [...] of pain while wearing knee immobilizer. Stump pier worker supplied by [employer]. Denies f/C. Moving the stump without to [...] 0659 09/09/19 07 - 09/10/19 0659 Shift 4939-1155 9402-7188 2633-2947 24 Hour Total 0036-9268 1091-7286 1812-2663 24 Hour Total INTAKE Shift Total OUTPUT [...] with luly in place, BKA with stump pier worker in place SKIN: Skin color, texture, turgor [...] lower extremity angiogram with partial occlusion R SCARFER OPERATOR, reconstitution at R below knee pop, 2-vessel runoff. Antibiotics stopped 08/23, remains non-septic. 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 09/02 PVR R calf 0.51, R low thigh 0.74. 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 ? Plan: -?DIET HEART HEALTHY? 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 Dressing changed re-applied stump pier worker today. Knee immobilize q4hr - Pain control - PT/OT?recs:?acute rehab - [facility] ppx - Mobilization as able, out of bed to chair?as tolerated - PAD - continue statin?and aspirin - Dispo planning: awaiting precert to [facility] Discuss plan with Dr. Devin Prescott DO, MBA PGY-1 General Surgery Resident 09/09/2019 9:02 AM Pager below: Vascular AND Thoracic Surgery Service Pager: For questions or concerns Mon-Mon 6a-5p please page [phone]. After 5pm and on Weekends and Holidays, please page [phone] if in ICU or [phone] if on RNF. Normal [facility] Phosphorus Bloodon 0 Phosphate [Mass/Vol] 3.1 mg/dL Normal 2.5-4.9 [facility] Comment on above: Performed By: #### C BC1 #### [facility] [address] [place] [id number] THERAPY NTon 09-09-2019 THERAPY NT HNO ID: [id number] Author: Ramón Obrien) Poppy Service: Physical Therapy Author Type: Monitoring Coordinator Type: Therapy (PT/OT/Speech/Resp) Filed: 09/09/2019 11:36 AM Note Text: Attestation signed by Tori SantiagoPt) Santos at 09/09/2019 4:16 PM I reviewed and agree with the documentation corresponding to this therapy visit. SIGNATURE: Tori Graham, PT DATE: September 09, 2019 TIME: 4:16 PM Physical Therapy Treatment SERVICE DATE: 09/09/2019 SERVICE TIME: 1053 to 1119 ROOM: [id number] Recommended Discharge Disposition: Acute Rehab Recommended Discharge [...] l;Muscle Weakness (generalized) Interventions Provided: Therapeutic Exercise (75837);Therapeutic Activity (42510) Therapeutic Exercise (74865) Treatment Minutes: 14 1 unit Skilled Intervention(s): [...] change of knee flexion contracture. Therapeutic Activity (47081) Treatment Minutes: 12 1 unit Skilled Intervention(s): [...] Environment Patient Lives With: Self/Alone Assistance Available: multimedia journalist Entry To Home: Stairs;With Rail Number Of [...] September 09, 2019 TIME: 11:28 AM Normal [facility] Basic Panelon 09-08-2019 Creatinine [Mass/Vol] 0.71 mg/dL Normal 0.67-1.17 [facility] Comment on above: Result Comment: Use of this assay is not recommended for patients undergoing treatment with phenindione, due to the potential for falsely depressed results. Performed By: #### P 8 #### [facility] [address] [place], [place] [address] Anion gap [Moles/Vol] 11 mmol/L Normal 8-16 [facility] Comment on above: Performed By: #### P 8 #### [facility] [address] [place], [place] [address] Calcium [Mass/Vol] 8.7 mg/dL Normal 8.5-10.1 [facility] Comment on above: Performed By: #### P 8 #### [facility] [address] [place], [place] [address] CO2 [Moles/Vol] 24 mmol/L Normal 21-32 [facility] Comment on above: Performed By: #### P 8 #### [facility] [address] [place], [place] [address] Glucose [Mass/Vol] 132 mg/dL High 70-99 [facility] Comment on above: Performed By: #### P 8 #### [facility] [address] [place], [place] [address] Urea nitrogen [Mass/Vol] 17 mg/dL Normal 7-18 [facility] Comment on above: Performed By: #### P 8 #### [facility] [address] [place], [place] [address] Chloride [Moles/Vol] 102 mmol/L Normal 98-107 [facility] Comment on above: Performed By: #### P 8 #### [facility] [address] [place], [place] [address] Potassium [Moles/Vol] 3.9 mmol/L Normal 3.5-5.1 [facility] Comment on above: Performed By: #### P 8 #### [facility] [address] [place], [place] [address] Sodium [Moles/Vol] 133 mmol/L Low 136-145 [facility] Comment on above: Performed By: #### P 8 #### [facility] [address] [place] [address] CONSULT Cheikh 09-08-2019 CONSULT PROG HNO ID: [id number] Author: Hermila Gallegos Service: Endocrinology Author Type: Physician Type: Consult Progress Note Filed: 09/08/2019 1:57 PM Note Text: ENDOCRINOLOGY CONSULT PROGRESS NOTE SERVICE DATE: 09/08/2019 SERVICE TIME: 10:20 AM Subjective INTERVAL HPI: Pt followed for diabetes mellitus type 2 with complications. Tr from [facility]; adm for right foot infection and gangrene; [...] 09/08/19 1102 09/08/19 0719 09/08/19 0446 09/07/19 2021 09/07/19 0632 09/06/19 0545 GLUC -- -- 132* [...] 2019 TIME: 1:57 PM PAGER: [phone] Normal [facility] Hemogramon 09-08-2019 Erythrocyte distribution width (RBC) [Ratio] 15.8 % High 11.6-14.4 [facility] Comment on above: Performed By: #### P 8 #### [facility] [address] [place], [place] [address] Hematocrit (Bld) [Volume fraction] 27.0 % Low 40.1-51.0 [facility] Comment on above: Performed By: #### P 8 #### [facility] [address] [place] [address] Hemoglobin (Bld) [Mass/Vol] 8.2 g/dL Low 13.7-17.5 [facility] Comment on above: Performed By: #### P 8 #### [address] [address] MCH (RBC) [Entitic mass] 27.8 pg Normal 25.7-32.2 [facility] Comment on above: Performed By: #### P 8 #### [facility] [address] [place], [place] [address] MCHC (RBC) [Mass/Vol] 30.4 % Low 32.3-36.5 [facility] Comment on above: Performed By: #### P 8 #### [address] [address] MCV (RBC) [Entitic vol] 91.5 fL Normal 83.2-95.[address] [facility] Comment on above: Performed By: #### P 8 #### [facility] [address] [place], [place] [address] Platelet mean volume (Bld) [Entitic vol] 10.2 fL Normal 8.7-12.0 [facility] Comment on above: Performed By: #### P 8 #### [facility] [address] [place], [place] [address] Platelets (Bld) [#/Vol] 444 thou/cmm High 141-365 [facility] Comment on above: Performed By: #### P 8 #### [facility] [address] [place], [place] [address] RBC (Bld) [#/Vol] 2.95 mil/cmm Low 4.63-6.08 [facility] Comment on above: Performed By: #### P 8 #### [facility] [address] [place], [place] [address] RDW SD 51.5 fl High 36.1-45.8 [facility] Comment on above: Performed By: #### P 8 #### [facility] [address] [place], [place] [address] WBC (Bld) [#/Vol] 12.29 thou/cmm High 4.23-9.07 [facility] Comment on above: Performed By: #### P 8 #### [facility] [address] [place], [place] [address] Magnesium Bloodon 09-08-2019 Magnesium [Mass/Vol] 1.2 mg/dL Low 1.6-2.6 [facility] Comment on above: Performed By: #### C BC1 #### [facility] [address] [place], [place] [address] PROGRESSon 09-08-2019 PROGRESS HNO ID: [id number] Author: Jennifer Crooks Service: Vascular Surgery Author [...] pain moderately well controlled this am. Stump pier worker applied by [employer] yesterday. Knee immobilizer in place. Tolerating diet [...] 0659 09/08/19 07 - 09/09/19 0659 Shift 4052-4921 8011-8268 7414-4625 24 Hour Total 9087-6719 4361-2781 8273-3591 24 Hour Total INTAKE Shift Total OUTPUT Urine 860 686 1377 Void (ml) 357 688 6595 # of BMs Stool Incontinence 1 x 1 x Number of BMs 1 x 1 x Shift Total 806 792 6992 Weight (kg) 90 90 90.4 90.4 90.4 [...] lower extremity angiogram with partial occlusion R SCARFER OPERATOR, reconstitution at R below knee pop, 2-vessel [...] edema, no bleeding. Will change dressing/re-apply stump pier worker today. - Pain control - PT/OT?recs:?acute rehab - [facility] ppx - Mobilization as able, out of bed to chair?as tolerated - PAD - continue statin?and aspirin - Dispo planning: awaiting precert to [facility] Addendum: (10:34 AM) Patient seen bedside with attending. Knee immobilizer/and dressing/stump pier worker taken down. Surgical incision appears healthy with minimal drainage. No erythema or bleeding. Luly intact. Dressing/stump pier worker reapplied. Will continue knee immobilizer q4H and while OOB. ? Vascular AND Thoracic Surgery Service Pager: For questions or concerns Mon-Mon 6a-5p please page [phone]. After 5pm and on Weekends and Holidays, please page [phone] if in ICU or [phone] if on RNF. SIGNATURE: Jennifer Crooks MD PATIENT NAME: Elizabeth Modi DATE: September 08, 2019 TIME: 6:45 AM Pager: Normal [facility] Phosphorus Bloodon 0 Phosphate [Mass/Vol] 3.0 mg/dL Normal 2.5-4.9 [facility] Comment on above: Performed By: #### C BC1 #### [place] [address] Basic Panelon 09-07-2019 Creatinine [Mass/Vol] 0.84 mg/dL Normal 0.67-1.17 [facility] Comment on above: Result Comment: Use of this assay is not recommended for patients undergoing treatment with phenindione, due to the potential for falsely depressed results. Performed By: #### F ERR #### [place] [address] Anion gap [Moles/Vol] 11 mmol/L Normal 8-16 [facility] Comment on above: Performed By: #### F ERR #### [place] [address] CO2 [Moles/Vol] 25 mmol/L Normal 21-32 [facility] Comment on above: Performed By: #### F ERR #### [place] [address] Glucose [Mass/Vol] 147 mg/dL High 70-99 [facility] Comment on above: Performed By: #### F ERR #### [place] [address] Urea nitrogen [Mass/Vol] 14 mg/dL Normal 7-18 [facility] Comment on above: Performed By: #### F ERR #### [place] [id number] Calcium [Mass/Vol] 9.5 mg/dL Normal 8.5-10.1 [facility] Comment on above: Performed By: #### F ERR #### [facility] [address] [place], [place] [address] Chloride [Moles/Vol] 101 mmol/L Normal 98-107 [facility] Comment on above: Performed By: #### F ERR #### [facility] [address] [place], [place] [address] Potassium [Moles/Vol] 4.2 mmol/L Normal 3.5-5.1 [facility] Comment on above: Performed By: #### F ERR #### [facility] [address] [place], [place] [address] Sodium [Moles/Vol] 133 mmol/L Low 136-145 [facility] Comment on above: Performed By: #### F ERR #### [facility] [address] [place] [id number] CONSULT PROGon 09-07-2019 CONSULT PROG HNO ID: [id number] Author: Hermila Gallegos Service: Endocrinology Author Type: Physician Type: Consult Progress Note Filed: 09/07/2019 11:25 AM Note Text: ENDOCRINOLOGY CONSULT PROGRESS NOTE SERVICE DATE: 09/07/2019 SERVICE TIME: 11:22 AM Subjective INTERVAL HPI: Pt followed for diabetes mellitus type 2 with complications. Tr from [place]; adm for right foot infection and gangrene; [...] SIGNATURE: Hermila Gallegos MD PATIENT NAME: Elizabeth Mdoi DATE: September 07, 2019 TIME: 11:24 AM PAGER: [phone] Normal [facility] Hemogramon 09-07-2019 Erythrocyte distribution width (RBC) [Ratio] 16.1 % High 11.6-14.4 [facility] Comment on above: Performed By: #### M AG #### [place] [address] Hematocrit (Bld) [Volume fraction] 31.4 % Low 40.1-51.0 [facility] Comment on above: Performed By: #### M AG #### [place] [address] Hemoglobin (Bld) [Mass/Vol] 9.8 g/dL Low 13.7-17.5 [facility] Comment on above: Performed By: #### M AG #### [place] [address] MCH (RBC) [Entitic mass] 28.7 pg Normal 25.7-32.2 [facility] Comment on above: Performed By: #### M AG #### [place] [address] MCHC (RBC) [Mass/Vol] 31.2 % Low 32.3-36.5 [facility] Comment on above: Performed By: #### M AG #### [place] [address] MCV (RBC) [Entitic vol] 92.1 fL Normal 83.2-95.[address] [facility] Comment on above: Performed By: #### M AG #### [facility] [address] [place], [place] [address] Platelet mean volume (Bld) [Entitic vol] 9.6 fL Normal 8.7-12.0 [facility] Comment on above: Performed By: #### M AG #### [facility] [address] [place], [place] [address] Platelets (Bld) [#/Vol] 519 thou/cmm High 141-365 [facility] Comment on above: Performed By: #### M AG #### [facility] [address] [place], [place] [address] RBC (Bld) [#/Vol] 3.41 mil/cmm Low 4.63-6.08 [facility] Comment on above: Performed By: #### M AG #### [facility] [address] [place] [address] RDW SD 53.3 fl High 36.1-45.8 [facility] Comment on above: Performed By: #### M AG #### [facility] [address] [place], [place] [address] WBC (Bld) [#/Vol] 12.27 thou/cmm High 4.23-9.07 [facility] Comment on above: Performed By: #### M AG #### [facility] [address] [place] [id number] Magnesium Bloodon 09-07-2019 Magnesium [Mass/Vol] 1.3 mg/dL Low 1.6-2.6 [facility] Comment on above: Performed By: #### F ERR #### [facility] [address] [place] [address] OPERATIVE NOon 09-07-2019 OPERATIVE NO HNO ID: [id number] Author: Ryan Allen Service: ? Author Type: Physician Type: Operative Report Filed: 09/09/2019 8:10 AM Note Text: [facility] - Operative Report ELIZABETH MODI : 1940 AGE: 79. SEX: M PATIENT TYPE: I HOSP SVC: KEENAN LOCATION: [facility] ATTENDING PHYSICIAN: JOVANNY PARMAR CSN NUMBER: [id number] DATE OF SURGERY/PROCEDURE: 09/05/2019 INCISION/PROCEDURE START TIME: 12:28 PM INCISION CLOSE/PROCEDURE END TIME: 2:14 PM PREOPERATIVE DIAGNOSIS: Gangrenous right lower extremity, status post guillotine amputation below the knee. POSTOPERATIVE DIAGNOSIS: Gangrenous right lower extremity, status post guillotine amputation below the knee. SURGEON: Ryan Allen MD, FACS HAND TENNIS BALL COVERER: Tom Prescott DO, resident, also surgical coordinator is Irvin Walker. SURGERY/PROCEDURE: Revision of a [...] tuberosity location and also used the oscillating [place] saw to divide the fibula slightly proximal [...] satisfactory postop condition. Ryan Allen MD, FACS RGN:[id number] Normal [facility] PROGRESSon 09-07-2019 PROGRESS HNO ID: [id number] Author: Jennifer Crooks Service: Vascular Surgery Author [...] 09/06/19699 - 09/07/1965809/07/19699 - 09/08/19 0659 Shift 8439-3987 6677-7226 3079-6130 24 Hour Total 1528-2118 8114-3024 4190-7939 24 Hour Total INTAKE Shift Total OUTPUT Urine 550 808 747 7894 Void (ml) 550 136 535 8889 Shift Total 550 509 650 9731 Weight (kg) 89.3 89.3 90 90 90 [...] lower extremity angiogram with partial occlusion R SCARFER OPERATOR, reconstitution at R below knee pop, 2-vessel [...] edema, no bleeding Nori consult for stump pier worker 09/06 - Pain control - PT/OT recs: acute rehab - [facility] ppx - Mobilization as able, out of bed to chair?as tolerated - PAD - continue statin?and aspirin - Dispo planning: awaiting precert to [facility] Vascular AND Thoracic Surgery Service Pager: For questions or concerns Mon-Mon 6a-5p please page [phone]. After 5pm and on Weekends and Holidays, please page [phone] if in ICU or [phone] if on RNF. SIGNATURE: Jennifer Crooks MD PATIENT NAME: Elizabeth Modi DATE: September 07, 2019 TIME: 6:39 AM Pager: Normal [facility] Phosphorus Bloodon 0 Phosphate [Mass/Vol] 3.0 mg/dL Normal 2.5-4.9 [facility] Comment on above: Performed By: #### C BC1 #### [place] [address] Basic Panelon 09-06-2019 Creatinine [Mass/Vol] 0.70 mg/dL Normal 0.67-1.17 [facility] Comment on above: Result Comment: Use of this assay is not recommended for patients undergoing treatment with phenindione, due to the potential for falsely depressed results. Performed By: #### C _ANA #### [address] [address] Anion gap [Moles/Vol] 10 mmol/L Normal 8-16 [facility] Comment on above: Performed By: #### C _ANA #### [address] [address] CO2 [Moles/Vol] 24 mmol/L Normal 21-32 [facility] Comment on above: Performed By: #### C _ANA #### [address] [address] Urea nitrogen [Mass/Vol] 14 mg/dL Normal 7-18 [facility] Comment on above: Performed By: #### C _ANA #### [address] [address] Calcium [Mass/Vol] 8.1 mg/dL Low 8.5-10.1 [facility] Comment on above: Performed By: #### C _ANA #### [address] [address] Glucose [Mass/Vol] 157 mg/dL High 70-99 [facility] Comment on above: Performed By: #### C _ANA #### [facility] [address] [place], [place] [address] Chloride [Moles/Vol] 106 mmol/L Normal 98-107 [facility] Comment on above: Performed By: #### C _ANA #### [facility] [address] [place], [place] [address] Potassium [Moles/Vol] 4.4 mmol/L Normal 3.5-5.1 [facility] Comment on above: Performed By: #### C _ANA #### [facility] [address] [place], [place] [address] Sodium [Moles/Vol] 136 mmol/L Normal 136-145 [facility] Comment on above: Performed By: #### C _ANA #### [facility] [address] [place], [place] [address] CASE MGT INIT ASSESon 2019 CASE MGT INIT [facility] HNO ID: [id number] Author: Tami (Rn) KAVIN Patricio Service: Care Management Author Type: Registered Nurse Type: Care Mgt Initial Assessment Filed: 09/06/2019 2:24 PM Note Text: CARE MANAGEMENT PROGRESS NOTE SERVICE DATE: 09/06/2019 SERVICE TIME: 2:23 PM LOS: 16 days Chart reviewed. Plan for [facility] - precert pending. Pt will need cot for transport. Will follow. SIGNATURE: Tami Patricio RN PATIENT NAME: Elizabeth Modi DATE: September 06, 2019 TIME: 2:22 PM PAGER/CONTACT #: [phone] [facility] CONSULT PROGon 09-06-2019 CONSULT PROG HNO ID: [id number] Author: Luke Briones (Gurwinder) Sailaja Service: Wound/Ostomy Author Type: Nurse Practitioner Type: Consult Progress Note Filed: 09/06/2019 9:52 AM Note Text: WOUND CARE PROGRESS NUCLEAR EQUIPMENT SALES ENGINEER NOTE SERVICE DATE: 09/06/2019 SERVICE TIME: 09:02 [...] male who is seen today with Zee Alab, Wound/air support control officer, and presented to hospital with complaints of [...] left heel and seat cushion. Will reorder [id number] mattress as patient is still on regular mattress and turn and reposition every 2 hours or more often. A photo was taken of the patient's wound(s). Photos can be found under the Get Images tab on [employer] Photos are uploaded by the wound primary health care nurse and may not be immediately available for viewing. Contact the wound and ostomy care department with questions. SIGNATURE: Luke Menard APRN.GURWINDER,CWOCN PATIENT NAME: Elizabeth Modi DATE: September 06, 2019 TIME: 9:45 AM CONTACT#: [id number] [facility] CONSULT PROG HNO ID: [id number] Author: Doris Eden Service: Endocrinology Author Type: Physician Type: Consult Progress Note Filed: 09/06/2019 7:59 AM Note Text: ENDOCRINOLOGY CONSULT PROGRESS NOTE SERVICE DATE: 09/06/2019 SERVICE TIME: 7:45 AM Subjective INTERVAL HPI: Pt followed for diabetes mellitus type 2 with complications. Tr from [place]; adm for right foot infection and gangrene; [...] 2019 TIME: 7:59 AM PAGER: [phone] Normal [facility] Hemogramon 09-06-2019 Erythrocyte distribution width (RBC) [Ratio] 16.2 % High 11.6-14.4 [facility] Comment on above: Performed By: #### F ERR #### [place] [address] Hematocrit (Bld) [Volume fraction] 26.4 % Low 40.1-51.0 [facility] Comment on above: Performed By: #### F ERR #### [place] [address] Hemoglobin (Bld) [Mass/Vol] 8.2 g/dL Low 13.7-17.5 [facility] Comment on above: Performed By: #### F ERR #### [place] [address] MCH (RBC) [Entitic mass] 28.5 pg Normal 25.7-32.2 [facility] Comment on above: Performed By: #### F ERR #### [place] [address] MCHC (RBC) [Mass/Vol] 31.1 % Low 32.3-36.5 [facility] Comment on above: Performed By: #### F ERR #### [place] [address] MCV (RBC) [Entitic vol] 91.7 fL Normal 83.2-95.6 [facility] Comment on above: Performed By: #### F ERR #### [facility] [address] [place] [address] Platelet mean volume (Bld) [Entitic vol] 9.7 fL Normal 8.7-12.0 [facility] Comment on above: Performed By: #### F ERR #### [facility] [address] [place] [id number] Platelets (Bld) [#/Vol] 410 thou/cmm High 141-365 [facility] Comment on above: Performed By: #### F ERR #### [facility] [address] [place] [address] RBC (Bld) [#/Vol] 2.88 mil/cmm Low 4.63-6.08 [facility] Comment on above: Performed By: #### F ERR #### [place] [address] RDW SD 53.9 fl High 36.1-45.8 [facility] Comment on above: Performed By: #### F ERR #### [facility] [address] [place] [address] WBC (Bld) [#/Vol] 10.15 thou/cmm High 4.23-9.07 [facility] Comment on above: Performed By: #### F ERR #### [place] [address] Magnesium Bloodon 09-06-2019 Magnesium [Mass/Vol] 1.5 mg/dL Low 1.6-2.6 [facility] Comment on above: Performed By: #### C _ANA #### [place] [address] NUTRITIONon 09-06-2019 NUTRITION HNO ID: [id number] Author: Tanja Zimmerman) ALEIDA Byrne Service: Nutrition [...] condition;Depletion of fat/muscle stores Estimated kilocalorie needs: 9417-7941 Calorie Calculation Method: 30-35 kcals/kg Estimated protein [...] September 06, 2019 TIME: 9:53 AM PAGER: [phone] Normal [facility] PROGRESSon 09-06-2019 PROGRESS HNO ID: [id number] Author: Tom Prescott DO Service: General Surgery [...] takedown dressing tomorrow and evaluate stump. Prosthetics [employer] to visit for stump pier worker hopefully tomorrow as well Signature: Ryan Allen MD Date: 09/06/2019 Time: 2:39 PM Vascular Surgery Progress Note SERVICE DATE: 09/06/2019 Vascular AND Thoracic Surgery Service Pager: For questions or concerns Mon-Fri 6a-5p please page [phone]. After 5pm and on Weekends and Holidays, please page [phone] if in ICU or [phone] if on RNF. Subjective SUBJECTIVE: Patient seen [...] 0659 09/06/19 07 - 09/07/19 0659 Shift 2129-1395 7235-8313 5661-0059 24 Hour Total 7735-8346 9582-1790 3786-7969 24 Hour Total INTAKE PO 240 240 480 PO 240 240 480 IV 750 100 850 OR Crystalloid intake (mL) 750 750 Volume (mL) (lactated ringers infusion) 100 100 Shift Total 750 665 653 8929 OUTPUT Urine 150 1100 1300 2550 Void [...] lower extremity angiogram with partial occlusion R SCARFER OPERATOR, reconstitution at R below knee pop, 2-vessel runoff. Antibiotics stopped 08/23, remains non-septic. 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 09/02 PVR R calf 0.51, R low thigh 0.74. 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 Dressing to be taken down tomorrow 09/06 Nori consult for stump pier worker 09/06 - Pain control - PT/OT recs: [...] ICU or 2174 if on RNF. Normal [facility] Phosphorus Bloodon 0 Phosphate [Mass/Vol] 2.9 mg/dL Normal 2.5-4.9 [facility] Comment on above: Performed By: #### M AG #### [place] [id number] THERAPY NTon 09-06-2019 THERAPY NT HNO ID: [id number] Author: Briana SantiagoOtr/Vickie Watson Service: Occupational Therapy Author Type: Occupational Therapist Type: Therapy (PT/OT/Speech/Resp) Filed: 09/06/2019 3:43 PM Note Text: Occupational Therapy Treatment SERVICE DATE: 09/06/2019 SERVICE TIME: 1519 to 1533 ROOM: [place] [address] Recommended Discharge Disposition: Acute Rehab Recommended Discharge [...] feet;General symptoms and signs-other Interventions Provided: Self Fpc Management (84933) Self Fpc Management (41619) Treatment Minutes: 14 1 unit Skilled Intervention(s): [...] On 09/05/19 Reason for Occupational Therapy Consult: LAND INSPECTOR Relevant Past Medical History: thyroid, HTN, DM, claudication Patient Report: Pt seen bedside, agreeable to OT, no complaints this p.m. 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: multimedia journalist Entry To Home: Stairs;With Rail Number Of [...] September 06, 2019 TIME: 3:38 PM Normal [facility] THERAPY NT HNO ID: [id number] Author: Marilyn (Pt) Mark Service: Physical Therapy Author Type: Physical Therapist Type: Therapy (PT/OT/Speech/Resp) Filed: 09/06/2019 12:03 PM Note Text: Physical Therapy Treatment SERVICE DATE: 09/06/2019 SERVICE TIME: 1109 to 1119 ROOM: [id number] Recommended Discharge Disposition: Acute Rehab Recommended [...] l;Muscle Weakness (generalized) Interventions Provided: Therapeutic Activity (83300) Therapeutic Activity (73402) Treatment Minutes: 10 1 unit Skilled Intervention(s): [...] Environment Patient Lives With: Self/Alone Assistance Available: multimedia journalist Entry To Home: Stairs;With Rail Number Of [...] September 06, 2019 TIME: 11:55 AM Normal [facility] ABO/Rh Confirmationon 2019 ABO group Nom (Bld) A Normal [facility] Comment on above: Performed By: #### G LMET #### [facility] [address] [place], [place] [address] RH Type Positive Normal [facility] Comment on above: Performed By: #### G LMET #### [facility] [address] [place], [place] [address] ANES [place] 09-05-2019 ANES POST HNO ID: [id number] Author: Sj Huizar Service: Anesthesiology Author Type: [...] 05, 2019 TIME: 5:54 PM PAGER/CONTACT #: [phone] [facility] ANES PREOPon 09-05-2019 ANES PREOP HNO ID: [id number] Author: Al Pugh Service: Anesthesiology Author Type: [...] September 05, 2019 TIME: 11:39 AM CSN: [id number] [facility] BRIEF OP NOTon 09-05-2019 BRIEF OP NOT HNO ID: [id number] Author: Tom Prescott DO Service: General Surgery [...] BRIEF OPERATIVE / PROCEDURE NOTE LOG ID: [id number] SURGERY/PROCEDURE DATE: 09/05/2019 INCISION/PROCEDURE START TIME: 12:28 PM INCISION CLOSE/PROCEDURE END TIME: 2:14 PM SURGEON(S)/PROCEDURALI ST(S) AND HAND TENNIS BALL COVERER(S): Surgeon(s) and Role: * Ryan Allen - Primary * Tom Prescott DO - Resident - Assisting Latex Thread Machine Operator: Irvin Walker SA SURGERY/PROCEDURE(S): Revision of [...] ICU or 2174 if on RNF. Normal [facility] Basic Panelon 09-05-2019 Creatinine [Mass/Vol] 0.73 mg/dL Normal 0.67-1.17 [facility] Comment on above: Result Comment: Use of this assay is not recommended for patients undergoing treatment with phenindione, due to the potential for falsely depressed results. Performed By: #### F ERR #### [address] [address] Anion gap [Moles/Vol] 9 mmol/L Normal 8-16 [facility] Comment on above: Performed By: #### F ERR #### [address] [address] Calcium [Mass/Vol] 7.8 mg/dL Low 8.5-10.1 [facility] Comment on above: Performed By: #### F ERR #### [address] [address] CO2 [Moles/Vol] 26 mmol/L Normal 21-32 [facility] Comment on above: Performed By: #### F ERR #### [facility] [address] [place], [place] [address] Glucose [Mass/Vol] 137 mg/dL High 70-99 [facility] Comment on above: Performed By: #### F ERR #### [address] [address] Urea nitrogen [Mass/Vol] 17 mg/dL Normal 7-18 [facility] Comment on above: Performed By: #### F ERR #### [facility] [address] [place], [place] [address] Chloride [Moles/Vol] 105 mmol/L Normal 98-107 [facility] Comment on above: Performed By: #### F ERR #### [facility] [address] [place], [place] [address] Potassium [Moles/Vol] 4.1 mmol/L Normal 3.5-5.1 [facility] Comment on above: Performed By: #### F ERR #### [facility] [address] [place], [place] [address] Sodium [Moles/Vol] 136 mmol/L Normal 136-145 [facility] Comment on above: Performed By: #### F ERR #### [facility] [address] [place], [place] [address] CONSULT PROGon 09-05-2019 CONSULT PROG HNO ID: [id number] Author: Doris Eden Service: Endocrinology Author Type: Physician Type: Consult Progress Note Filed: 09/05/2019 8:01 AM Note Text: ENDOCRINOLOGY CONSULT PROGRESS NOTE SERVICE DATE: 09/05/2019 SERVICE TIME: 7:50 AM Subjective INTERVAL HPI: Pt followed for diabetes mellitus type 2 with complications. Tr from [place]; adm for right foot infection and gangrene; [...] 2019 TIME: 8:01 AM PAGER: [phone] Normal [facility] Hemogramon 09-05-2019 Erythrocyte distribution width (RBC) [Ratio] 16.0 % High 11.6-14.4 [facility] Comment on above: Performed By: #### G LMET #### [facility] [address] [place] [address] Hematocrit (Bld) [Volume fraction] 25.4 % Low 40.1-51.0 [facility] Comment on above: Performed By: #### G LMET #### [facility] [address] [place] [address] Hemoglobin (Bld) [Mass/Vol] 8.1 g/dL Low 13.7-17.5 [facility] Comment on above: Performed By: #### G LMET #### [facility] [address] [place] [address] MCH (RBC) [Entitic mass] 29.1 pg Normal 25.7-32.2 [facility] Comment on above: Performed By: #### G LMET #### [facility] [address] [place] [address] MCHC (RBC) [Mass/Vol] 31.9 % Low 32.3-36.5 [facility] Comment on above: Performed By: #### G LMET #### [facility] [address] [place] [address] MCV (RBC) [Entitic vol] 91.4 fL Normal 83.2-95.[address] [facility] Comment on above: Performed By: #### G LMET #### [facility] [address] [place] [address] Platelet mean volume (Bld) [Entitic vol] 9.7 fL Normal 8.7-12.0 [facility] Comment on above: Performed By: #### G LMET #### [facility] [address] [place] [id number] Platelets (Bld) [#/Vol] 387 thou/cmm High 141-365 [facility] Comment on above: Performed By: #### G LMET #### [facility] [address] [place], [place] [address] RBC (Bld) [#/Vol] 2.78 mil/cmm Low 4.63-6.08 [facility] Comment on above: Performed By: #### G LMET #### [facility] [address] [place], [place] [address] RDW SD 52.4 fl High 36.1-45.8 [facility] Comment on above: Performed By: #### G LMET #### [facility] [address] [place], [place] [address] WBC (Bld) [#/Vol] 9.06 thou/cmm Normal 4.23-9.07 [facility] Comment on above: Performed By: #### G LMET #### [facility] [address] [place] [address] Magnesium Bloodon 09-05-2019 Magnesium [Mass/Vol] 1.3 mg/dL Low 1.6-2.6 [facility] Comment on above: Performed By: #### C _ANA #### [facility] [address] [place] [address] PROGRESSon 09-05-2019 PROGRESS HNO ID: [id number] Author: Francine Roberts Service: Vascular Surgery Author [...] questions or concerns Mon-Mon 6a-5p please page [phone]. After 5pm and on Weekends and Holidays, [...] Air IANDO: Date 09/04/19699 - 09/05/1965809/05/19699 - 09/06/19 0659 Shift 6263-2548 8832-5276 0572-8183 24 Hour Total 2661-4208 4230-2448 8005-9502 24 Hour Total INTAKE Shift Total OUTPUT Urine 650 894 491 8339 Void (ml) 650 484 878 6845 Shift Total 650 687 169 3209 Weight (kg) 89.4 89.4 89.4 89.4 89.4 [...] Date Noted - Malnutrition of moderate degree ([facility]) 08/22/2019 - Gangrene of foot ([facility]) 08/21/2019 - Diabetes ([facility]) 08/21/2019 - HTN (hypertension) 08/21/2019 - Dyslipidemia 08/21/2019 - Hypothyroidism 08/21/2019 This is a 79 year old male with PMH of thyroid disease, HTN, dyslipidemia,claudicat ion, DM. 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 After 5pm and on Weekends and Holidays, please page [phone] if in ICU or [phone] if on RNF. Normal [facility] Phosphorus Bloodon 0 Phosphate [Mass/Vol] 2.9 mg/dL Normal 2.5-4.9 [facility] Comment on above: Performed By: #### M AG #### [facility] [address] [place] [address] Surgical Tissue Examon 09-04 Surgical Tissue Exam Test performed at [place] [address] NAME: ELIZABETH MODI REQUESTING: JOVANNY PARMAR MD [...] mild calcific atherosclerosis. Thrombi are not present. Welding Machine Operator Plasma Arc sections are submitted as follows: 1 - soft tissue line of resection (black ink); 2-3 - floor representative sections of red-pink ischemic process at distal aspect; 4 - floor representative sections of vessels; 5 - floor representative section of bone following a period of decalcification. KVB:cindi ARENAS M.D. (Electronic signature on file) Signed out: 09/09/2019 14:52 PRINTED: 09/09/2019 Page 1 of 1 Normal [facility] Comment on above: Performed By: #### M AG #### [place] [address] Type and Screenon 09-05-2019 ABO group Nom (Bld) A Normal [facility] Comment on above: Performed By: #### M AG #### [facility] [address] [place] [address] Comment See Below Normal [facility] Comment on above: Result Comment: Scre en &/or Xmatch expires in 3 days at 12 midnight. Redraw patient at that time. Performed By: #### M AG #### [facility] [address] [place] [address] RH Type Positive Normal [facility] Comment on above: Performed By: #### M AG #### [facility] [address] [place] [address] Basic Panelon 09-04-2019 Creatinine [Mass/Vol] 0.87 mg/dL Normal 0.67-1.17 [facility] Comment on above: Result Comment: Use of this assay is not recommended for patients undergoing treatment with phenindione, due to the potential for falsely depressed results. Performed By: #### F ERR #### [place] [address] Anion gap [Moles/Vol] 8 mmol/L Normal 8-16 [facility] Comment on above: Performed By: #### F ERR #### [place] [address] Calcium [Mass/Vol] 8.0 mg/dL Low 8.5-10.1 [facility] Comment on above: Performed By: #### F ERR #### [place] [address] CO2 [Moles/Vol] 25 mmol/L Normal 21-32 [facility] Comment on above: Performed By: #### F ERR #### [facility] [address] [place] [address] Glucose [Mass/Vol] 113 mg/dL High 70-99 [facility] Comment on above: Performed By: #### F ERR #### [facility] [address] [place] [address] Urea nitrogen [Mass/Vol] 23 mg/dL High 7-18 [facility] Comment on above: Performed By: #### F ERR #### [place] [id number] Chloride [Moles/Vol] 110 mmol/L High 98-107 [facility] Comment on above: Performed By: #### F ERR #### [facility] [address] [place], [place] [address] Potassium [Moles/Vol] 4.0 mmol/L Normal 3.5-5.1 [facility] Comment on above: Performed By: #### F ERR #### [facility] [address] [place], [place] [address] Sodium [Moles/Vol] 139 mmol/L Normal 136-145 [facility] Comment on above: Performed By: #### F ERR #### [facility] [address] [place] [address] CASE MANAGEMon 09-04-2019 CASE MANAGEM HNO ID: [id number] Author: Tami SantiagoRn) KAVIN Patricio Service: Care Management Author Type: Registered Nurse Type: Care Mgt Progress Note Filed: 09/04/2019 9:41 AM Note Text: CARE MANAGEMENT PROGRESS NOTE SERVICE DATE: 09/04/2019 SERVICE TIME: 9:36 AM LOS: 14 days Chart reviewed. 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 Plan for [facility] at d/c. Pt will need auth when medically stable and likely cot transport. Will follow. SIGNATURE: Tami Patricio RN PATIENT NAME: Elizabeth Modi DATE: September 04, 2019 TIME: 9:36 AM PAGER/CONTACT #: [phone] [facility] CONSULT PROGon 09-04-2019 CONSULT PROG HNO ID: [id number] Author: Doris Eden Service: Endocrinology Author Type: Physician Type: Consult Progress Note Filed: 09/04/2019 9:41 AM Note Text: ENDOCRINOLOGY CONSULT PROGRESS NOTE SERVICE DATE: 09/04/2019 SERVICE TIME: 9:20 AM Subjective INTERVAL HPI: Pt followed for diabetes mellitus type 2 with complications. Tr from [facility]; adm for right foot infection and gangrene; [...] 2019 TIME: 9:41 AM PAGER: [phone] Normal [facility] Hemogramon 09-04-2019 Erythrocyte distribution width (RBC) [Ratio] 15.8 % High 11.6-14.4 [facility] Comment on above: Performed By: #### F ERR #### [place] [address] Hematocrit (Bld) [Volume fraction] 27.6 % Low 40.1-51.0 [facility] Comment on above: Performed By: #### F ERR #### [place] [address] Hemoglobin (Bld) [Mass/Vol] 8.3 g/dL Low 13.7-17.5 [facility] Comment on above: Performed By: #### F ERR #### [place] [address] MCH (RBC) [Entitic mass] 28.0 pg Normal 25.7-32.2 [facility] Comment on above: Performed By: #### F ERR #### [facility] [address] [place] [address] MCHC (RBC) [Mass/Vol] 30.1 % Low 32.3-36.5 [facility] Comment on above: Performed By: #### F ERR #### [place] [address] MCV (RBC) [Entitic vol] 93.2 fL Normal 83.2-95.6 [facility] Comment on above: Performed By: #### F ERR #### [facility] [address] [place] [address] Platelet mean volume (Bld) [Entitic vol] 10.0 fL Normal 8.7-12.0 [facility] Comment on above: Performed By: #### F ERR #### [facility] [address] [place], [place] [address] Platelets (Bld) [#/Vol] 371 thou/cmm High 141-365 [facility] Comment on above: Performed By: #### F ERR #### [facility] [address] [place] [address] RBC (Bld) [#/Vol] 2.96 mil/cmm Low 4.63-6.08 [facility] Comment on above: Performed By: #### F ERR #### [facility] [address] [place] [address] RDW SD 51.6 fl High 36.1-45.8 [facility] Comment on above: Performed By: #### F ERR #### [facility] [address] [place] [address] WBC (Bld) [#/Vol] 9.95 thou/cmm High 4.23-9.07 [facility] Comment on above: Performed By: #### F ERR #### [facility] [address] [place] [address] Magnesium Bloodon 09-04-2019 Magnesium [Mass/Vol] 1.8 mg/dL Normal 1.6-2.6 [facility] Comment on above: Performed By: #### M AG #### [facility] [address] [place] [address] PROGRESSon 09-04-2019 PROGRESS HNO ID: [id number] Author: Francine Roberts Service: Vascular Surgery Author [...] questions or concerns Mon-Mon 6a-5p please page [phone]. After 5pm and on Weekends and Holidays, please page [phone] if in ICU or [phone] if on RNF. Subjective SUBJECTIVE: Complaining of [...] Air IANDO: Date 09/03/19699 - 09/04/1965809/04/19699 - 09/05/1958 Shift 0293-5186 9554-6778 4407-1740 24 Hour Total 5452-4254 0558-4206 3480-3451 24 Hour Total INTAKE IV 611 611 Volume (mL) (lactated ringers infusion) 511 511 Volume (mL) (magnesium sulfate in sterile water 4 g iv piggyback) 100 100 Shift Total 611 611 OUTPUT Urine 165 934 2155 Void (ml) 607 148 4315 Shift Total 295 486 8228 Weight (kg) 91.4 91.4 89.4 89.4 89.4 [...] lower extremity angiogram with partial occlusion R SCARFER OPERATOR, reconstitution at R below knee pop, 2-vessel [...] ICU or 2174 if on RNF. Normal [facility] Phosphorus Bloodon 0 Phosphate [Mass/Vol] 2.2 mg/dL Low 2.5-4.9 [facility] Comment on above: Performed By: #### C _ANA #### [facility] [address] [place] [address] THERAPY NTon 09-04-2019 THERAPY NT HNO ID: [id number] Author: Marilyn (Pt) Mark Service: Physical Therapy Author Type: Physical Therapist Type: Therapy (PT/OT/Speech/Resp) Filed: 09/04/2019 3:34 PM Note Text: PHYSICAL THERAPY MISSED VISIT SERVICE DATE: 09/04/2019 SERVICE TIME: 1532 to 1532 ROOM: [place] [address] Attempted Treatment. Patient not seen due to Declined. Patient reports he is extremely tired today and is having his procedure tomorrow. States he is not feeling up to it today despite encouragement. Educated patient that we will visit him after his procedure. SIGNATURE: Marilyn Flores PT PATIENT NAME: Elizabeth Modi DATE: September 04, 2019 TIME: 3:33 PM Normal [facility] ANES [place] 09-03-2019 ANES POST HNO ID: [id number] Author: Dwayne Kerns Service: Anesthesiology Author Type: [...] 02, 2019 TIME: 11:44 PM PAGER/CONTACT #: [phone] Normal [facility] Basic Panelon 09-03-2019 Creatinine [Mass/Vol] 0.90 mg/dL Normal 0.67-1.17 [facility] Comment on above: Result Comment: Use of this assay is not recommended for patients undergoing treatment with phenindione, due to the potential for falsely depressed results. Performed By: #### C BC1 #### [address] [address] Anion gap [Moles/Vol] 7 mmol/L Low 8-16 [facility] Comment on above: Performed By: #### C BC1 #### [address], [place] [address] Calcium [Mass/Vol] 7.9 mg/dL Low 8.5-10.1 [facility] Comment on above: Performed By: #### C BC1 #### [facility] [address] [place], [place] [address] CO2 [Moles/Vol] 27 mmol/L Normal 21-32 [facility] Comment on above: Performed By: #### C BC1 #### [facility] [address] [place], [place] [address] Glucose [Mass/Vol] 135 mg/dL High 70-99 [facility] Comment on above: Performed By: #### C BC1 #### [facility] [address] [place], [place] [address] Urea nitrogen [Mass/Vol] 25 mg/dL High 7-18 [facility] Comment on above: Performed By: #### C BC1 #### [facility] [address] [place], [place] [address] Chloride [Moles/Vol] 106 mmol/L Normal 98-107 [facility] Comment on above: Performed By: #### C BC1 #### [facility] [address] [place], [place] [address] Potassium [Moles/Vol] 4.4 mmol/L Normal 3.5-5.1 [facility] Comment on above: Performed By: #### C BC1 #### [address] [address] Sodium [Moles/Vol] 136 mmol/L Normal 136-145 [facility] Comment on above: Performed By: #### C BC1 #### [facility] [address] [place], [place] [address] CASE MANAGEMon 09-03-2019 CASE MANAGEM HNO ID: [id number] Author: Ammy (Rn) KAVIN Gutierres Service: ? [...] 03, 2019 TIME: 9:50 AM PAGER/CONTACT #: [phone] Normal [facility] CONSULT PROGon 09-03-2019 CONSULT PROG HNO ID: [id number] Author: Doris Eden Service: Endocrinology Author Type: Physician Type: Consult Progress Note Filed: 09/03/2019 8:39 AM Note Text: ENDOCRINOLOGY CONSULT PROGRESS NOTE SERVICE DATE: 09/03/2019 SERVICE TIME: 8:05 AM Subjective INTERVAL HPI: Pt followed for diabetes mellitus type 2 with complications. Tr from [facility]; adm for right foot infection and gangrene; [...] 2019 TIME: 8:39 AM PAGER: [phone] Normal [facility] Hemogramon 09-03-2019 Erythrocyte distribution width (RBC) [Ratio] 15.4 % High 11.6-14.4 [facility] Comment on above: Performed By: #### M AG #### [address] [address] Hematocrit (Bld) [Volume fraction] 28.1 % Low 40.1-51.0 [facility] Comment on above: Performed By: #### M AG #### [address] [address] Hemoglobin (Bld) [Mass/Vol] 8.9 g/dL Low 13.7-17.5 [facility] Comment on above: Performed By: #### M AG #### [address] [place], [place] [address] MCH (RBC) [Entitic mass] 29.1 pg Normal 25.7-32.2 [facility] Comment on above: Performed By: #### M AG #### [facility] [address] [place] [address] MCHC (RBC) [Mass/Vol] 31.7 % Low 32.3-36.5 [facility] Comment on above: Performed By: #### M AG #### [facility] [address] [place] [address] MCV (RBC) [Entitic vol] 91.8 fL Normal 83.2-95.[address] [facility] Comment on above: Performed By: #### M AG #### [place] [address] Platelet mean volume (Bld) [Entitic vol] 9.4 fL Normal 8.7-12.0 [facility] Comment on above: Performed By: #### M AG #### [place] [address] Platelets (Bld) [#/Vol] 410 thou/cmm High 141-365 [facility] Comment on above: Performed By: #### M AG #### [place] [address] RBC (Bld) [#/Vol] 3.06 mil/cmm Low 4.63-6.08 [facility] Comment on above: Performed By: #### M AG #### [place] [address] RDW SD 48.7 fl High 36.1-45.8 [facility] Comment on above: Performed By: #### M AG #### [place] [id number] WBC (Bld) [#/Vol] 12.94 thou/cmm High 4.23-9.07 [facility] Comment on above: Performed By: #### M AG #### [place] [address] Magnesium Bloodon 09-03-2019 Magnesium [Mass/Vol] 1.4 mg/dL Low 1.6-2.6 [facility] Comment on above: Performed By: #### M AG #### [facility] [address] [place] [address] NURSING PROGon 09-03-2019 NURSING PROG HNO ID: [id number] Author: Kassidy Izquierdo) KAVIN Lew Service: Nursing Author Type: Registered Nurse Type: Nursing Progress Note Filed: 09/03/2019 11:57 AM Note Text: Nursing Progress Note Patient Name: Elizabeth Modi Patient Location: [id number]/[facility] __ Daily Note: 1047--report called to Darrin Chau RN. 1113--pt transferred to 4226 via chair on RA with Rn and Sr Tech. Pt remains in chair, chair locked, call light within reach, tele applied. KAVIN Chau in room. This note was completed by: Kassidy Lew RN [facility] PROGRESSon 09-03-2019 PROGRESS HNO ID: [id number] Author: Francine Roberts Service: Vascular Surgery Author [...] questions or concerns Mon-Fri 6a-5p please page [phone]. After 5pm and on Weekends and Holidays, please page [phone] if in ICU or [phone] if on RNF. Subjective SUBJECTIVE: SARATH. Says [...] 0659 09/03/19 07 - 09/04/19 0659 Shift 0373-0834 1596-3954 9000-6383 24 Hour Total 0259-1018 9299-0266 9960-8233 24 Hour Total INTAKE Shift Total OUTPUT [...] Date Noted - Malnutrition of moderate degree ([facility]) 08/22/2019 - Gangrene of foot (H[facility]) 08/21/2019 - Diabetes ([facility]) 08/21/2019 - HTN (hypertension) 08/21/2019 - Dyslipidemia 08/21/2019 - Hypothyroidism 08/21/2019 This is a 79 year old male with PMH of thyroid disease, HTN, dyslipidemia,claudicat ion, DM. 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 After 5pm and on Weekends and Holidays, please page [phone] if in ICU or [phone] if on RNF. Normal [facility] Phosphorus Bloodon 0 Phosphate [Mass/Vol] 2.9 mg/dL Normal 2.5-4.9 [facility] Comment on above: Performed By: #### P 8 #### [facility] [address] [place] [address] THERAPY NTon 09-03-2019 THERAPY NT HNO ID: [id number] Author: Tamiko SantiagoOtr/Vickie Nur Service: Occupational Therapy Author Type: Occupational Therapist Type: Therapy (PT/OT/Speech/Resp) Filed: 09/03/2019 9:19 AM Note Text: Occupational Therapy Evaluation(Re-Evaluati on) SERVICE DATE: 09/03/2019 SERVICE TIME: 0845 to 0900 ROOM: [place] [address] Recommended Discharge Disposition: Acute Rehab Justification For [...] and signs-other Interventions Provided: Re-evaluation $ Reevaluation (13081) Billed Units: 1 unit Total Timed Code Treatment Minutes: 39 Total Treatment Time (minutes): 15 SUBJECTIVE: Current Hospital Course: Chart reviewed; R femoral endarterectomy 09/02/2019 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 "I am so glad I got to the chair." 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: multimedia journalist Entry To Home: Stairs;With Rail Number Of [...] complete details for this therapy evaluation/treatment. SIGNATURE: NAIDR Diaz/Serene PATIENT NAME: Elizabeth Modi DATE: September 03, 2019 TIME: 9:15 AM Normal [facility] THERAPY NT HNO ID: [id number] Author: Marilyn (Pt) Mark Service: Physical Therapy Author Type: Physical Therapist Type: Therapy (PT/OT/Speech/Resp) Filed: 09/03/2019 9:12 AM Note Text: Physical Therapy Treatment SERVICE DATE: 09/03/2019 SERVICE TIME: 0830 to 0853 ROOM: [id number] Recommended Discharge Disposition: Acute Rehab Recommended [...] Weakness (generalized) Interventions Provided: Re-evaluation $ Reevaluation (91376) Billed Units: 1 unit Re-evaluation completed due to completion of R femoral endarterectomy Therapeutic Activity (80847) Treatment Minutes: 10 1 unit Skilled Intervention(s): [...] Environment Patient Lives With: Self/Alone Assistance Available: multimedia journalist Entry To Home: Stairs;With Rail Number Of [...] September 03, 2019 TIME: 9:08 AM Normal [facility] US ARTERIAL PVR LOWERon 08-17 US ARTERIAL PVR LOWER * * *Final Report* * * DATE OF EXAM: Sep 03 2019 11:07AM A2U 1107 - US ARTERIAL PVR LOWER / PROCEDURE REASON: s/p surgery * * * * Physician Interpretation * * * * Non-Invasive Vascular Laboratory [facility] Lower Extremity Arterial Physiology Study Bilateral/Complete Date of service/time: 09/03/2019 9:25:00 AM Name: ELIZABETH MODI Date of : 1940 Age: 79 years Gender: M Medical History Tobacco: Former PAD: Yes Hypertension: Yes Diabetes: Yes Clinical Indication Post operative right SCARFER OPERATOR endarterectomy. TECHNIQUE -------- An arterial physiological examination [...] Interpreting physician: Gordo Figueroa MD Final RP Electron Microscopist: RICHARD Transcriprice Date/Time: Sep 03 2019 9:25A Dictated by : GORDO FIGUEROA MD This examination was interpreted and the report reviewed and electronically signed by: GORDO FIGUEROA MD on Sep 05 2019 9:48AM EST Normal [facility] US VEIN MAPPING LOWER BILon 09-03-2019 [...] lower extremity. Superficial venous measurements as above. Electron Microscopist: PSCEmily Transcribe Date/Time: Sep 02 2019 10:28P Dictated by : DWAYNE BURTON MD This examination was interpreted and the report reviewed and electronically signed by: DWAYNE BURTON MD on Sep 02 2019 10:38PM EST Normal [facility] ANES PREOPon 09-02-2019 ANES PREOP HNO ID: [id number] Author: Tammy Hinson Service: Anesthesiology Author Type: [...] 6 H PRN Tom (Res) Kenyon, DO 650 mg at 09/01/19 0849 - [MAR Hold due to Transfer] atorvastatin 40 mg tab(s) (LIPITOR) 40 mg ORAL DAILY Tom (Res) Westthelma, DO 40 mg at 09/01/192028 - [MAR Hold due to Transfer] lisinopril 10 mg tab(s) (ZESTRIL, PRINIVIL) 10 mg ORAL DAILY Tom (Res) Kenyon, DO 10 mg at 09/01/19 0849 - [MAR Hold due to Transfer] levothyroxine 25 mcg tab(s) (SYNTHROID) 25 mcg ORAL DAILY Tom (Kim) Kenyon, 25 mcg at 09/02/19 0453 - [MAR Hold due to Transfer] dextrose 40 % 15 g 15 g ORAL PRN Tom (Res) DO Kenyon Or - [MAR Hold due to Transfer] glucagon 1 mg injection (GLUCAGEN) 1 mg INTRAMUSCULAR PRN Tom (Kim) Kenyon, Or - [MAR Hold due to [...] September 02, 2019 TIME: 9:50 AM CSN: [id number] [facility] BRIEF OP NOTon 09-02-2019 BRIEF OP NOT HNO ID: [id number] Author: Francine Roberts Service: Vascular Surgery Author [...] BRIEF OPERATIVE / PROCEDURE NOTE LOG ID: [id number] Patient Name:Elizabeth Modi CSN: [id number] Surgery/Procedure Date: 09/02/2019 Incision/Procedure Start Time: 11:01 AM Incision Close/Procedure End Time: Surgeon(s)/Procedurali st(s) and Braille Typist(s): Surgeon(s) and Role: * Jovanny Parmar - Primary * Francine Roberts - Resident - Assisting Latex Thread Machine Operator: Lori Schmid SA Procedure(s): Procedure(s) (LRB): [...] 02, 2019 TIME: 12:47 PM PAGER/CONTACT #: [phone] Normal [facility] Basic Panelon 09-02-2019 Creatinine [Mass/Vol] 0.78 mg/dL Normal 0.67-1.17 [facility] Comment on above: Result Comment: Use of this assay is not recommended for patients undergoing treatment with phenindione, due to the potential for falsely depressed results. Performed By: #### M AG #### [facility] [address] [place], [place] [address] Anion gap [Moles/Vol] 12 mmol/L Normal 8-16 [facility] Comment on above: Performed By: #### M AG #### [facility] [address] [place], [place] [address] Calcium [Mass/Vol] 8.4 mg/dL Low 8.5-10.1 [facility] Comment on above: Performed By: #### M AG #### [facility] [address] [place], [place] [address] CO2 [Moles/Vol] 24 mmol/L Normal 21-32 [facility] Comment on above: Performed By: #### M AG #### [facility] [address] [place], [place] [address] Urea nitrogen [Mass/Vol] 24 mg/dL High 7-18 [facility] Comment on above: Performed By: #### M AG #### [address] [address] Glucose [Mass/Vol] 148 mg/dL High 70-99 [facility] Comment on above: Performed By: #### M AG #### [address] [address] Chloride [Moles/Vol] 104 mmol/L Normal 98-107 [facility] Comment on above: Performed By: #### M AG #### [facility] [address] [place], [place] [address] Potassium [Moles/Vol] 4.1 mmol/L Normal 3.5-5.1 [facility] Comment on above: Performed By: #### M AG #### [facility] [address] [place], [place] [address] Sodium [Moles/Vol] 136 mmol/L Normal 136-145 [facility] Comment on above: Performed By: #### M AG #### [facility] [address] [place] [address] CONSULT PROGon 09-02-2019 CONSULT PROG HNO ID: [id number] Author: Doris Eden Service: Endocrinology Author Type: Physician Type: Consult Progress Note Filed: 09/02/2019 1:35 PM Note Text: ENDOCRINOLOGY CONSULT PROGRESS NOTE SERVICE DATE: 09/02/2019 SERVICE TIME: 1:25 PM Subjective INTERVAL HPI: Pt followed for diabetes mellitus type 2 with complications. Tr from [facility]; adm for right foot infection and gangrene; [...] 2019 TIME: 1:35 PM PAGER: [phone] Normal [facility] Hemogramon 09-02-2019 Erythrocyte distribution width (RBC) [Ratio] 14.9 % High 11.6-14.4 [facility] Comment on above: Performed By: #### C BC1 #### [place] [address] Hematocrit (Bld) [Volume fraction] 33.4 % Low 40.1-51.0 [facility] Comment on above: Performed By: #### C BC1 #### [address] [address] Hemoglobin (Bld) [Mass/Vol] 10.3 g/dL Low 13.7-17.5 [facility] Comment on above: Performed By: #### C BC1 #### [facility] [address] [place], [place] [address] MCH (RBC) [Entitic mass] 28.1 pg Normal 25.7-32.2 [facility] Comment on above: Performed By: #### C BC1 #### [address] [address] MCHC (RBC) [Mass/Vol] 30.8 % Low 32.3-36.5 [facility] Comment on above: Performed By: #### C BC1 #### [facility] [address] [place], [place] [address] MCV (RBC) [Entitic vol] 91.0 fL Normal 83.2-95.6 [facility] Comment on above: Performed By: #### C BC1 #### [facility] [address] [place], [place] [address] Platelet mean volume (Bld) [Entitic vol] 9.7 fL Normal 8.7-12.0 [facility] Comment on above: Performed By: #### C BC1 #### [facility] [address] [place], [place] [address] Platelets (Bld) [#/Vol] 425 thou/cmm High 141-365 [facility] Comment on above: Performed By: #### C BC1 #### [place] [address] RBC (Bld) [#/Vol] 3.67 mil/cmm Low 4.63-6.08 [facility] Comment on above: Performed By: #### C BC1 #### [facility] [address] [place] [address] RDW SD 47.8 fl High 36.1-45.8 [facility] Comment on above: Performed By: #### C BC1 #### [facility] [address] [place], [place] [address] WBC (Bld) [#/Vol] 9.66 thou/cmm High 4.23-9.07 [facility] Comment on above: Performed By: #### C BC1 #### [facility] [address] [place] [address] Magnesium Bloodon 09-02-2019 Magnesium [Mass/Vol] 1.5 mg/dL Low 1.6-2.6 [facility] Comment on above: Performed By: #### M AG #### [facility] [address] [place] [address] OPERATIVE NOon 09-02-2019 OPERATIVE NO HNO ID: [id number] Author: Jovanny Parmar Service: Vascular Surgery Author Type: Physician Type: Operative Report Filed: 09/30/2019 2:43 PM Note Text: [facility] - Operative Report ELIZABETH MODI : 1940 AGE: 79. SEX: M PATIENT TYPE: I HOSP SVC: KEENAN LOCATION: [facility] ATTENDING PHYSICIAN: JOVANNY PARMAR CSN NUMBER: [id number] DATE OF SURGERY/PROCEDURE: 09/02/2019 INCISION/PROCEDURE START TIME: 12:28 PM INCISION CLOSE/PROCEDURE END TIME: 2:14 PM PREOPERATIVE DIAGNOSIS: Gangrene, right lower extremity. POSTOPERATIVE DIAGNOSIS: Gangrene, right lower extremity. SURGEON: Jovanny Parmar MD HAND TENNIS BALL COVERER: Francine Roberts. SURGERY/PROCEDURE: Right femoral endarterectomy with [...] recovery in stable condition. Jovanny Parmar MD LM:[id number] /[id number] Normal [facility] PROGRESSon 09-02-2019 PROGRESS HNO ID: [id number] Author: Zack Jenkins Service: Hospital Medicine Author Type: Physician Type: Progress Notes Filed: 09/02/2019 5:22 PM Note Text: DEPARTMENT OF HOSPITAL MEDICINE PROGRESS NOTE SERVICE DATE: 09/02/2019 SERVICE TIME: 9am Hospital Medicine/Primary Attending: Zack Jenkins, DO NIGHT AND WEEKEND COVERAGE: After 7pm please page [phone] CHIEF COMPLAINT: No new complaints SUBJECTIVE: Pt [...] gangrene and necrosis POD #9?s/p amputation -Angio /10 showing partial occlusion R SCARFER OPERATOR -Vascular and Ortho consults -Plan is for?endarterectomy [...] this note may have been generated using Connexity voice recognition software. Reasonable efforts were made to correct any dictation errors that resulted due to the programming of this software but some may still be present. Normal [facility] PROGRESS HNO ID: [id number] Author: Francine Roberts Service: Vascular Surgery Author [...] questions or concerns Mon-Mon 6a-5p please page [phone]. After 5pm and on Weekends and Holidays, please page [phone] if in ICU or [phone] if on [...] lower extremity angiogram with partial occlusion R SCARFER OPERATOR, reconstitution at R below knee pop, 2-vessel [...] PT EDon 09-02-2019 PT ED HNO ID: [id number] Author: Chelsea (Rn) Shun Paz RN Service: [...] 0 Phosphate [Mass/Vol] 2.9 mg/dL Normal 2.5-4.9 [facility] Comment on above: Performed By: #### P 8 #### [place] [address] CONSULT PROGon 09-01-2019 CONSULT PROG HNO ID: [id number] Author: Doris Eden Service: Endocrinology Author Type: Physician Type: Consult Progress Note Filed: 09/01/2019 9:12 AM Note Text: ENDOCRINOLOGY CONSULT PROGRESS NOTE SERVICE DATE: 09/01/2019 SERVICE TIME: 9:05 AM Subjective INTERVAL HPI: Pt followed for diabetes mellitus type 2 with complications. Tr from [facility]; adm for right foot infection and gangrene; [...] 2019 TIME: 9:12 AM PAGER: [phone] Normal [facility] Hemogramon 09-01-2019 Erythrocyte distribution width (RBC) [Ratio] 14.9 % High 11.6-14.4 [facility] Comment on above: Performed By: #### M AG #### [facility] [address] [place] [address] Hematocrit (Bld) [Volume fraction] 27.1 % Low 40.1-51.0 [facility] Comment on above: Performed By: #### M AG #### [facility] [address] [place] [address] Hemoglobin (Bld) [Mass/Vol] 8.5 g/dL Low 13.7-17.5 [facility] Comment on above: Performed By: #### M AG #### [facility] [address] [place] [address] MCH (RBC) [Entitic mass] 28.1 pg Normal 25.7-32.2 [facility] Comment on above: Performed By: #### M AG #### [facility] [address] [place] [address] MCHC (RBC) [Mass/Vol] 31.4 % Low 32.3-36.5 [facility] Comment on above: Performed By: #### M AG #### [place] [address] MCV (RBC) [Entitic vol] 89.7 fL Normal 83.2-95.[address] [facility] Comment on above: Performed By: #### M AG #### [facility] [address] [place] [address] Platelet mean volume (Bld) [Entitic vol] 9.4 fL Normal 8.7-12.0 [facility] Comment on above: Performed By: #### M AG #### [facility] [address] [place] [id number] Platelets (Bld) [#/Vol] 334 thou/cmm Normal 141-365 [facility] Comment on above: Performed By: #### M AG #### [facility] [address] [place] [address] RBC (Bld) [#/Vol] 3.02 mil/cmm Low 4.63-6.08 [facility] Comment on above: Performed By: #### M AG #### [facility] [address] [place], [place] [address] RDW SD 46.4 fl High 36.1-45.8 [facility] Comment on above: Performed By: #### M AG #### [facility] [address] [place], [place] [address] WBC (Bld) [#/Vol] 7.69 thou/cmm Normal 4.23-9.07 [facility] Comment on above: Performed By: #### M AG #### [facility] [address] [place], [place] [address] PROGRESSon 09-01-2019 PROGRESS HNO ID: [id number] Author: Zack Jenkins Service: Hospital Medicine Author Type: Physician Type: Progress Notes Filed: 09/01/2019 4:10 PM Note Text: DEPARTMENT OF HOSPITAL MEDICINE PROGRESS NOTE SERVICE DATE: 09/01/2019 SERVICE TIME: 4:07 PM Hospital Medicine/Primary Attending: Zack Jenkins, DO NIGHT AND WEEKEND COVERAGE: After 7pm please page [phone] CHIEF COMPLAINT: No new complaints SUBJECTIVE: Pt [...] amputation -Angio 08/26 showing partial occlusion R SCARFER OPERATOR -Vascular and Ortho consults -Plan is for?endarterectomy [...] this note may have been generated using Connexity voice recognition software. Reasonable efforts were made to correct any dictation errors that resulted due to the programming of this software but some may still be present. Normal [facility] PROGRESS HNO ID: [id number] Author: Francine Roberts Service: Vascular Surgery Author [...] questions or concerns Mon-Fri 6a-5p please page [phone]. After 5pm and on Weekends and Holidays, [...] 0659 09/01/19 07 - 09/02/19 0659 Shift 9446-2352 6004-6491 1345-3259 24 Hour Total 6724-7410 1522-5993 8881-5542 24 Hour Total INTAKE Shift Total OUTPUT [...] lower extremity angiogram with partial occlusion R SCARFER OPERATOR, reconstitution at R below knee pop, 2-vessel [...] ICU or 2174 if on RNF. Normal [facility] THERAPY NTon 09-01-2019 THERAPY NT HNO ID: [id number] Author: Sheridan (Pt) Antwan Service: Physical Therapy Author Type: Physical Therapist Type: Therapy (PT/OT/Speech/Resp) Filed: 09/01/2019 4:02 PM Note Text: Physical Therapy Treatment SERVICE DATE: 09/01/2019 SERVICE TIME: 1520 to 1538 ROOM: [id number] Recommended Discharge Disposition: Acute Rehab Justification For [...] l;Muscle Weakness (generalized) Interventions Provided: Therapeutic Activity (68781) Therapeutic Activity (02623) Treatment Minutes: 18 1 unit Skilled Intervention(s): Functional mobility performed as described below. In EOB sitting for improved strength, ROM, conditioning, function: L ankle DF/PF, glute sets, LAQs, marching, abd/iso add, 2 x 10 reps each; instructed ex technique with short rest breaks needed. Pt education re: rehab process s/p amputation; practiced scooting along EOB for carryover to [id number]-jn-dllattf transfers, pt education / cues for increased [...] Environment Patient Lives With: Self/Alone Assistance Available: multimedia journalist Entry To Home: Stairs;With Rail Number Of [...] September 01, 2019 TIME: 3:55 PM Normal [facility] Basic Panelon 08-31-2019 Creatinine [Mass/Vol] 0.76 mg/dL Normal 0.67-1.17 [facility] Comment on above: Result Comment: Use of this assay is not recommended for patients undergoing treatment with phenindione, due to the potential for falsely depressed results. Performed By: #### C _ANA #### [address] [address] Anion gap [Moles/Vol] 11 mmol/L Normal 8-16 [facility] Comment on above: Performed By: #### C _ANA #### [address] [address] Calcium [Mass/Vol] 8.2 mg/dL Low 8.5-10.1 [facility] Comment on above: Performed By: #### C _ANA #### [address] [address] CO2 [Moles/Vol] 23 mmol/L Normal 21-32 [facility] Comment on above: Performed By: #### C _ANA #### [address] [address] Glucose [Mass/Vol] 85 mg/dL Normal 70-99 [facility] Comment on above: Performed By: #### C _ANA #### [address] [address] Urea nitrogen [Mass/Vol] 21 mg/dL High 7-18 [facility] Comment on above: Performed By: #### C _ANA #### [facility] [address] [place], [place] [address] Chloride [Moles/Vol] 106 mmol/L Normal 98-107 [facility] Comment on above: Performed By: #### C _ANA #### [facility] [address] [place], [place] [address] Potassium [Moles/Vol] 3.9 mmol/L Normal 3.5-5.1 [facility] Comment on above: Performed By: #### C _ANA #### [facility] [address] [place], [place] [address] Sodium [Moles/Vol] 136 mmol/L Normal 136-145 [facility] Comment on above: Performed By: #### C _ANA #### [facility] [address] [place], [place] [address] CONSULT PROGon 08-31-2019 CONSULT PROG HNO ID: [id number] Author: Doris Eden Service: Endocrinology Author Type: Physician Type: Consult Progress Note Filed: 08/31/2019 8:08 AM Note Text: ENDOCRINOLOGY CONSULT PROGRESS NOTE SERVICE DATE: 08/31/2019 SERVICE TIME: 7:50 AM Subjective INTERVAL HPI: Pt followed for diabetes mellitus type 2 with complications. Tr from [facility]; adm for right foot infection and gangrene; [...] 2019 TIME: 8:08 AM PAGER: [phone] Normal [facility] Hemogramon 08-31-2019 Erythrocyte distribution width (RBC) [Ratio] 14.5 % High 11.6-14.4 [facility] Comment on above: Performed By: #### M AG #### [place] [address] Hematocrit (Bld) [Volume fraction] 31.2 % Low 40.1-51.0 [facility] Comment on above: Performed By: #### M AG #### [facility] [address] [place] [address] Hemoglobin (Bld) [Mass/Vol] 10.0 g/dL Low 13.7-17.5 [facility] Comment on above: Performed By: #### M AG #### [facility] [address] [place] [address] MCH (RBC) [Entitic mass] 28.7 pg Normal 25.7-32.2 [facility] Comment on above: Performed By: #### M AG #### [facility] [address] [place] [address] MCHC (RBC) [Mass/Vol] 32.1 % Low 32.3-36.5 [facility] Comment on above: Performed By: #### M AG #### [place] [address] MCV (RBC) [Entitic vol] 89.4 fL Normal 83.2-95.[address] [facility] Comment on above: Performed By: #### M AG #### [place] [address] Platelet mean volume (Bld) [Entitic vol] 9.4 fL Normal 8.7-12.0 [facility] Comment on above: Performed By: #### M AG #### [place] [address] Platelets (Bld) [#/Vol] 385 thou/cmm High 141-365 [facility] Comment on above: Performed By: #### M AG #### [facility] [address] [place] [address] RBC (Bld) [#/Vol] 3.49 mil/cmm Low 4.63-6.08 [facility] Comment on above: Performed By: #### M AG #### [place] [address] RDW SD 45.1 fl Normal 36.1-45.8 [facility] Comment on above: Performed By: #### M AG #### [facility] [address] [place], [place] [address] WBC (Bld) [#/Vol] 8.81 thou/cmm Normal 4.23-9.07 [facility] Comment on above: Performed By: #### M AG #### [facility] [address] [place], [place] [address] Magnesium Bloodon 08-31-2019 Magnesium [Mass/Vol] 1.1 mg/dL Low 1.6-2.6 [facility] Comment on above: Performed By: #### M AG #### [facility] [address] [place], [place] [address] PROGRESSon 08-31-2019 PROGRESS HNO ID: [id number] Author: Zack Jenkins Service: Hospital Medicine Author Type: Physician Type: Progress Notes Filed: 08/31/2019 4:57 PM Note Text: DEPARTMENT OF HOSPITAL MEDICINE PROGRESS NOTE SERVICE DATE: 08/31/2019 SERVICE TIME: 4:53 PM Hospital Medicine/Primary Attending: Zack Jenkins, DO NIGHT AND WEEKEND COVERAGE: After 7pm please page [phone] CHIEF COMPLAINT: no new complaints SUBJECTIVE: Pt [...] amputation -Angio 08/26 showing partial occlusion R SCARFER OPERATOR -Vascular and Ortho consults -Plan is for?endarterectomy [...] units Sub Q BID?? ? Disposition:?Home with [facility]?pending progress and surgery? Plan of care discussed with: Provider, RN, Patient SIGNATURE: Zack Jenkins DO PATIENT NAME: Elizabeth Modi DATE: August 31, 2019 TIME: 4:53 PM PAGER/CONTACT #: Team color pager Disclaimer: Portions of this note may have been generated using Connex[employer] voice recognition software. Reasonable efforts were made to correct any dictation errors that resulted due to the programming of this software but some may still be present. Normal [facility] PROGRESS HNO ID: [id number] Author: Francine Roberts Service: Vascular Surgery Author [...] questions or concerns Mon-Fri 6a-5p please page [phone]. After 5pm and on Weekends and Holidays, please page [phone] if in ICU or [phone] if on RNF. Subjective SUBJECTIVE: NAEON. Denies [...] 0659 08/31/19 07 - 09/01/19 0659 Shift 1041-9264 2718-2269 1707-1727 24 Hour Total 7708-9687 1688-0565 7697-7920 24 Hour Total INTAKE Shift Total OUTPUT Urine 500 719 292 5457 Void (ml) 500 326 703 6414 # of BMs Number of BMs 1 x 1 x Shift Total 500 369 245 5516 Weight (kg) 90.9 90.9 89.6 89.6 89.6 [...] on 08/27/2019 - showing partial occlusion R SCARFER OPERATOR - Right femoral endarterectomy on Monday, then determination on AKA/A following that procedure - consent obtained, OK for DVT ppx morning of - still awaiting vein mapping - PAD-continue statin?and aspirin -?Further care per primary SIGNATURE: Francine Roberts MD PATIENT NAME: Elizabeth Modi DATE: August 31, 2019 TIME: 6:21 AM Vascular AND Thoracic Surgery Service Pager: For questions or concerns Mon-Mon 6a-5p please page [phone]. After 5pm and on Weekends and Holidays, please page [phone] if in ICU or [phone] if on RNF. Normal [facility] Phosphorus Bloodon 0 Phosphate [Mass/Vol] 3.3 mg/dL Normal 2.5-4.9 [facility] Comment on above: Performed By: #### C BC1 #### [place] [address] Basic Panelon 08-30-2019 Creatinine [Mass/Vol] 0.80 mg/dL Normal 0.67-1.17 [facility] Comment on above: Result Comment: Use of this assay is not recommended for patients undergoing treatment with phenindione, due to the potential for falsely depressed results. Performed By: #### M AG #### [address] [place], [place] [address] Anion gap [Moles/Vol] 12 mmol/L Normal 8-16 [facility] Comment on above: Performed By: #### M AG #### [facility] [address] [place], [place] [address] Calcium [Mass/Vol] 7.7 mg/dL Low 8.5-10.1 [facility] Comment on above: Performed By: #### M AG #### [facility] [address] [place], [place] [address] CO2 [Moles/Vol] 24 mmol/L Normal 21-32 [facility] Comment on above: Performed By: #### M AG #### [facility] [address] [place], [place] [address] Glucose [Mass/Vol] 70 mg/dL Normal 70-99 [facility] Comment on above: Performed By: #### M AG #### [address] [address] Urea nitrogen [Mass/Vol] 16 mg/dL Normal 7-18 [facility] Comment on above: Performed By: #### M AG #### [address] [address] Chloride [Moles/Vol] 106 mmol/L Normal 98-107 [facility] Comment on above: Performed By: #### M AG #### [address] [address] Potassium [Moles/Vol] 4.0 mmol/L Normal 3.5-5.1 [facility] Comment on above: Performed By: #### M AG #### [address] [address] Sodium [Moles/Vol] 138 mmol/L Normal 136-145 [facility] Comment on above: Performed By: #### M AG #### [address] [address] CONSULT PROGon 08-30-2019 CONSULT PROG HNO ID: [id number] Author: Doris Eden Service: Endocrinology Author Type: Physician Type: Consult Progress Note Filed: 08/30/2019 8:57 AM Note Text: ENDOCRINOLOGY CONSULT PROGRESS NOTE SERVICE DATE: 08/30/2019 SERVICE TIME: 8:45 AM Subjective INTERVAL HPI: Pt followed for diabetes mellitus type 2 with complications. Tr from [facility]; adm for right foot infection and gangrene; [...] 2019 TIME: 8:57 AM PAGER: [phone] Normal [facility] Hemogramon 08-30-2019 Erythrocyte distribution width (RBC) [Ratio] 14.1 % Normal 11.6-14.4 [facility] Comment on above: Performed By: #### C BC1 #### [place] [address] Hematocrit (Bld) [Volume fraction] 28.8 % Low 40.1-51.0 [facility] Comment on above: Performed By: #### C BC1 #### [place] [address] Hemoglobin (Bld) [Mass/Vol] 9.0 g/dL Low 13.7-17.5 [facility] Comment on above: Performed By: #### C BC1 #### [place] [address] MCH (RBC) [Entitic mass] 28.3 pg Normal 25.7-32.2 [facility] Comment on above: Performed By: #### C BC1 #### [place] [address] MCHC (RBC) [Mass/Vol] 31.3 % Low 32.3-36.5 [facility] Comment on above: Performed By: #### C BC1 #### [place] [address] MCV (RBC) [Entitic vol] 90.6 fL Normal 83.2-95.[address] [facility] Comment on above: Performed By: #### C BC1 #### [address] [address] Platelet mean volume (Bld) [Entitic vol] 9.7 fL Normal 8.7-12.0 [facility] Comment on above: Performed By: #### C BC1 #### [facility] [address] [place], [place] [address] Platelets (Bld) [#/Vol] 388 thou/cmm High 141-365 [facility] Comment on above: Performed By: #### C BC1 #### [facility] [address] [place], [place] [address] RBC (Bld) [#/Vol] 3.18 mil/cmm Low 4.63-6.08 [facility] Comment on above: Performed By: #### C BC1 #### [facility] [address] [place], [place] [address] RDW SD 44.2 fl Normal 36.1-45.8 [facility] Comment on above: Performed By: #### C BC1 #### [facility] [address] [place], [place] [address] WBC (Bld) [#/Vol] 9.52 thou/cmm High 4.23-9.07 [facility] Comment on above: Performed By: #### C BC1 #### [facility] [address] [place] [address] NUTRITIONon 08-30-2019 NUTRITION HNO ID: [id number] Author: Snow Serna Service: Nutrition Therapy Author Type: Registered Dietitian Type: Nutrition Filed: 08/30/2019 1:41 PM Note Text: NUTRITION THERAPY PROGRESS NOTE SERVICE DATE: 08/30/2019 SERVICE TIME: 11:33 AM Nutrition Assessment: Recommended Malnutrition Diagnosis: Moderate Protein-Calorie Malnutrition (08/22/19 1436 : Keturah ([employer]arm [employer]er) Valery) Estimated kilocalorie needs: 5980-2092 Calorie Calculation Method: 30-35 kcals/kg Estimated protein [...] August 30, 2019 TIME: 11:33 AM PAGER: [phone] Normal [facility] PROGRESSon 08-30-2019 PROGRESS HNO ID: [id number] Author: Zack Jenkins Service: Hospital Medicine Author Type: Physician Type: Progress Notes Filed: 08/30/2019 5:31 PM Note Text: DEPARTMENT OF HOSPITAL MEDICINE PROGRESS NOTE SERVICE DATE: 08/30/2019 SERVICE TIME: 5:24 PM Hospital Medicine/Primary Attending: Zack Jenkins, DO NIGHT AND WEEKEND COVERAGE: After 7pm please page [phone] CHIEF COMPLAINT: R lower leg pain SUBJECTIVE: [...] amputation -Angio 08/26 showing partial occlusion R SCARFER OPERATOR -Vascular and Ortho consults -Plan is for [...] units Sub Q BID?? ? Disposition:?Home with [facility]?pending progress and surgery? Plan of care discussed with: Provider, RN, Patient SIGNATURE: Zack Jenkins DO PATIENT NAME: Elizabeth Modi DATE: August 30, 2019 TIME: 5:24 PM PAGER/CONTACT #: Team color pager Disclaimer: Portions of this note may have been generated using Connexity voice recognition software. Reasonable efforts were made to correct any dictation errors that resulted due to the programming of this software but some may still be present. [facility] PROGRESS HNO ID: [id number] Author: Francine Roberts Service: General Surgery Author [...] questions or concerns Mon-Fri 6a-5p please page [phone]. After 5pm and on Weekends and Holidays, [...] Date 08/29/19 07 - 08/30/19 0659 08/30/19 0700 - 08/31/19 0659 Shift 8447-0304 7093-0039 0319-0377 24 Hour Total 7396-9737 5239-3551 9603-7794 24 Hour Total INTAKE IV 1100 1100 [...] on 08/27/2019 - showing partial occlusion R SCARFER OPERATOR - Endarterectomy on Monday, then determination on [...] questions or concerns Mon-Fri 6a-5p please page [phone]. After 5pm and on Weekends and Holidays, please page [phone] if in ICU or [phone] if on RNF. Normal [facility] THERAPY NTon 08-30-2019 THERAPY NT HNO ID: [id number] Author: Tanja (Pt) Hoda Service: Physical Therapy Author Type: Physical Therapist Type: Therapy (PT/OT/Speech/Resp) Filed: 08/30/2019 5:00 PM Note Text: Physical Therapy Treatment SERVICE DATE: 08/30/2019 SERVICE TIME: 1415 to 1500 ROOM: [place] [address] Recommended Discharge Disposition: Acute Rehab Recommended Discharge [...] l;Muscle Weakness (generalized) Interventions Provided: Therapeutic Exercise (26589);Therapeutic Activity (63531) Therapeutic Exercise (13969) Treatment Minutes: 25 2 units Skilled Intervention(s): Patient completed general strengthening exercises in supine, sitting (ankle pump, quad set, gluteal set, heel slide, hip abd/add, straight leg raise, long arc quad, short arc quad, hip adductor squeeze, assisted bridging) x 15-20 reps bilateral lower extremity, with min assist, with min verbal/tactile cues for optimal muscle recruitment, muscle activation, and muscle strengthening. Therapeutic Activity (21223) Treatment Minutes: 15 1 unit Skilled Intervention(s): [...] Environment Patient Lives With: Self/Alone Assistance Available: multimedia journalist Entry To Home: Stairs;With Rail Number Of [...] August 30, 2019 TIME: 4:56 PM Normal [facility] Basic Panelon 08-29-2019 Creatinine [Mass/Vol] 0.80 mg/dL Normal 0.67-1.17 [facility] Comment on above: Result Comment: Use of this assay is not recommended for patients undergoing treatment with phenindione, due to the potential for falsely depressed results. Performed By: #### C _ANA #### [address] [address] Anion gap [Moles/Vol] 9 mmol/L Normal 8-16 [facility] Comment on above: Performed By: #### C _ANA #### [address] [address] CO2 [Moles/Vol] 27 mmol/L Normal 21-32 [facility] Comment on above: Performed By: #### C _ANA #### [address] [address] Glucose [Mass/Vol] 83 mg/dL Normal 70-99 [facility] Comment on above: Performed By: #### C _ANA #### [facility] [address] [place], [place] [address] Urea nitrogen [Mass/Vol] 14 mg/dL Normal 7-18 [facility] Comment on above: Performed By: #### C _ANA #### [facility] [address] [place], [place] [address] Calcium [Mass/Vol] 7.9 mg/dL Low 8.5-10.1 [facility] Comment on above: Performed By: #### C _ANA #### [facility] [address] [place], [place] [address] Chloride [Moles/Vol] 106 mmol/L Normal 98-107 [facility] Comment on above: Performed By: #### C _ANA #### [facility] [address] [place], [place] [address] Potassium [Moles/Vol] 4.0 mmol/L Normal 3.5-5.1 [facility] Comment on above: Performed By: #### C _ANA #### [facility] [address] [place], [place] [address] Sodium [Moles/Vol] 138 mmol/L Normal 136-145 [facility] Comment on above: Performed By: #### C _ANA #### [facility] [address] [place], [place] [address] CASE MANAGEMon 08-29-2019 CASE MANAGEM HNO ID: [id number] Author: Tami Izquierdo) KAVIN Patricio Service: Care Management Author Type: Registered Nurse Type: Care Mgt Progress Note Filed: 08/29/2019 11:27 AM Note Text: CARE MANAGEMENT PROGRESS NOTE SERVICE DATE: 08/29/2019 SERVICE TIME: 11:27 AM LOS: 8 days Chart reviewed. 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 Referral to [facility]- pt will need precert. Will follow clinical progress. SIGNATURE: Tami Patricio RN PATIENT NAME: Elizabeth Modi DATE: August 29, 2019 TIME: 11:27 AM PAGER/CONTACT #: [phone] Normal [facility] CONSULT PROGon 08-29-2019 CONSULT PROG HNO ID: [id number] Author: Luke Briones (Gurwinder) Sailaja Service: Wound/Ostomy Author Type: Nurse Practitioner Type: Consult Progress Note Filed: 08/29/2019 3:36 PM Note Text: WOUND CARE CONSULT NUCLEAR EQUIPMENT SALES ENGINEER NOTE SERVICE DATE: 08/29/2019 SERVICE TIME: 14:45 TIME SPENT (minutes): 30 REASON FOR CONSULT: Reevaluation of right leg wounds and overall skin check. CHIEF COMPLAINT: Recent surgery to right leg with more coming on Monday Subjective HISTORY OF PRESENT ILLNESS: Mr. Modi is a 79 year old male who is seen today with Leila Goel, Wound/air support control officer, and presented to hospital with complaints of [...] on Monday09/02/19 for right femoral endartectomy. Obtained [employer] heel boot for patient's left heel and seat cushion. Will order patient [id number] mattress and turn and reposition every 2 hours or more often. A photo was taken of the patient's wound(s). Photos can be found under the Get Images tab on [employer] Photos are uploaded by the wound primary health care nurse and may not be immediately available for viewing. Contact the wound and ostomy care department with questions. SIGNATURE: Luke Menard APRN.RN MEDICATION,CWOCN PATIENT NAME: Elizabeth Modi DATE: August 29, 2019 TIME: 3:23 PM CONTACT#: [id number] [facility] CONSULT PROG HNO ID: [id number] Author: Doris Eden Service: Endocrinology Author Type: Physician Type: Consult Progress Note Filed: 08/29/2019 8:38 AM Note Text: ENDOCRINOLOGY CONSULT PROGRESS NOTE SERVICE DATE: 08/29/2019 SERVICE TIME: 8:25 AM Subjective INTERVAL HPI: Pt followed for diabetes mellitus type 2 with complications. Tr from [facility]; adm for right foot infection and gangrene; [...] 2019 TIME: 8:38 AM PAGER: [phone] Normal [facility] Hemogramon 08-29-2019 Erythrocyte distribution width (RBC) [Ratio] 14.1 % Normal 11.6-14.4 [facility] Comment on above: Performed By: #### F ERR #### [facility] [address] [place], [place] [address] Hematocrit (Bld) [Volume fraction] 27.5 % Low 40.1-51.0 [facility] Comment on above: Performed By: #### F ERR #### [facility] [address] [place], [place] [address] Hemoglobin (Bld) [Mass/Vol] 8.8 g/dL Low 13.7-17.5 [facility] Comment on above: Performed By: #### F ERR #### [facility] [address] [place] [address] MCH (RBC) [Entitic mass] 29.0 pg Normal 25.7-32.2 [facility] Comment on above: Performed By: #### F ERR #### [facility] [address] [place] [address] MCHC (RBC) [Mass/Vol] 32.0 % Low 32.3-36.5 [facility] Comment on above: Performed By: #### F ERR #### [facility] [address] [place] [address] MCV (RBC) [Entitic vol] 90.8 fL Normal 83.2-95.[address] [facility] Comment on above: Performed By: #### F ERR #### [facility] [address] [place], [place] [address] Nucleated RBC (Bld) [#/Vol] 0.02 thou/cmm High 0.00-0.01 [facility] Comment on above: Performed By: #### F ERR #### [facility] [address] [place], [place] [address] Nucleated RBC/100 WBC (Bld) [Ratio] 0.2 % Normal 0.0-0.2 [facility] Comment on above: Performed By: #### F ERR #### [facility] [address] [place], [place] [address] Platelet mean volume (Bld) [Entitic vol] 9.5 fL Normal 8.7-12.0 [facility] Comment on above: Performed By: #### F ERR #### [facility] [address] [place], [place] [address] Platelets (Bld) [#/Vol] 430 thou/cmm High 141-365 [facility] Comment on above: Performed By: #### F ERR #### [facility] [address] [place], [place] [address] RBC (Bld) [#/Vol] 3.03 mil/cmm Low 4.63-6.08 [facility] Comment on above: Performed By: #### F ERR #### [facility] [address] [place] [address] RDW SD 45.0 fl Normal 36.1-45.8 [facility] Comment on above: Performed By: #### F ERR #### [facility] [address] [place] [address] WBC (Bld) [#/Vol] 10.45 thou/cmm High 4.23-9.07 [facility] Comment on above: Performed By: #### F ERR #### [facility] [address] [place] [address] Magnesium Bloodon 08-29-2019 Magnesium [Mass/Vol] 1.6 mg/dL Normal 1.6-2.6 [facility] Comment on above: Performed By: #### M AG #### 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 Disposition: Home with [facility] pending progress and surgery Plan of care discussed with: Provider, RN, Patient SIGNATURE: Zack Jenkins DO PATIENT NAME: Elizabeth Modi DATE: August 29, 2019 TIME: 5:56 PM PAGER/CONTACT #: Team color pager Disclaimer: Portions of this note may have been generated using Connexity voice recognition software. Reasonable efforts were made to correct any dictation errors that resulted due to the programming of this software but some may still be present. Normal [facility] PROGRESS HNO ID: [id number] Author: Tom Prescott DO Service: General Surgery [...] Cardiac testing completed. Will plan for OR Silver for R femoral endartectomy Signature: Jovanny Parmar MD Date: 08/29/2019 Time: 3:10 PM Vascular/Thoracic Surgery Progress Note SERVICE DATE: 08/29/2019 Vascular AND Thoracic Surgery Service Pager: For questions or concerns Mon-Fri 6a-5p please page [phone]. After 5pm and on Weekends and Holidays, please page [phone] if in ICU or [phone] if on [...] Therapy: Room Air IANDO: Date 08/28/19699 - 08/29/19 0659 08/29/19699 - 08/30/19 0659 Shift 2672-2324 6984-6469 7672-1908 24 Hour Total 8943-3705 5466-0100 3163-1425 24 Hour Total INTAKE Shift Total OUTPUT [...] questions or concerns Mon-Fri 6a-5p please page [phone]. After 5pm and on Weekends and Holidays, please page [phone] if in ICU or [phone] if on RNF. Normal [facility] THERAPY NTon 08-29-2019 THERAPY NT HNO ID: [id number] Author: Tanja (Pt) Hoda Service: Physical Therapy Author Type: Physical Therapist Type: Therapy (PT/OT/Speech/Resp) Filed: 08/29/2019 3:21 PM Note Text: Physical Therapy Treatment SERVICE DATE: 08/29/2019 SERVICE TIME: 1138 to 1208 ROOM: [place] [address] Recommended Discharge Disposition: Acute Rehab Recommended Discharge [...] l;Muscle Weakness (generalized) Interventions Provided: Therapeutic Exercise (84182);Therapeutic Activity (90071) Therapeutic Exercise (74816) Treatment Minutes: 15 1 unit Skilled Intervention(s): [...] extremity general strengthening therapeutic exercise. Therapeutic Activity (45220) Treatment Minutes: 10 1 unit Skilled Intervention(s): [...] Environment Patient Lives With: Self/Alone Assistance Available: multimedia journalist Entry To Home: Stairs;With Rail Number Of [...] August 29, 2019 TIME: 3:09 PM Normal [facility] Basic Panelon 08-28-2019 Creatinine [Mass/Vol] 0.91 mg/dL Normal 0.67-1.17 [facility] Comment on above: Result Comment: Use of this assay is not recommended for patients undergoing treatment with phenindione, due to the potential for falsely depressed results. Performed By: #### C _ANA #### [address] [address] Anion gap [Moles/Vol] 10 mmol/L Normal 8-16 [facility] Comment on above: Performed By: #### C _ANA #### [address] [address] CO2 [Moles/Vol] 27 mmol/L Normal 21-32 [facility] Comment on above: Performed By: #### C _ANA #### [address] [address] Urea nitrogen [Mass/Vol] 14 mg/dL Normal 7-18 [facility] Comment on above: Performed By: #### C _ANA #### [facility] [address] [place], [place] [address] Calcium [Mass/Vol] 7.5 mg/dL Low 8.5-10.1 [facility] Comment on above: Performed By: #### C _ANA #### [facility] [address] [place] [address] Glucose [Mass/Vol] 108 mg/dL High 70-99 [facility] Comment on above: Performed By: #### C _ANA #### [facility] [address] [place] [address] Chloride [Moles/Vol] 105 mmol/L Normal 98-107 [facility] Comment on above: Performed By: #### C _ANA #### [facility] [address] [place] [address] Potassium [Moles/Vol] 4.1 mmol/L Normal 3.5-5.1 [facility] Comment on above: Performed By: #### C _ANA #### [facility] [address] [place] [address] Sodium [Moles/Vol] 138 mmol/L Normal 136-145 [facility] Comment on above: Performed By: #### C _ANA #### [facility] [address] [place] [address] CASE MANAGEMon 08-28-2019 CASE MANAGEM HNO ID: [id number] Author: Tami Patricio RN Service: Care Management Author Type: Registered Nurse Type: Care Mgt Progress Note Filed: 08/28/2019 1:57 PM Note Text: CARE MANAGEMENT PROGRESS NOTE SERVICE DATE: 08/28/2019 SERVICE TIME: 1:56 PM LOS: 7 days Chart reviewed. 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 Referral to [facility]- pt will need precert. Will follow clinical progress. SIGNATURE: Tami Patricio RN PATIENT NAME: Elizabeth Modi DATE: August 28, 2019 TIME: 1:56 PM PAGER/CONTACT #: [phone] Normal [facility] CONSULT PROGon 08-28-2019 CONSULT PROG HNO ID: [id number] Author: Doris Eden Service: Endocrinology Author Type: Physician Type: Consult Progress Note Filed: 08/28/2019 8:31 AM Note Text: ENDOCRINOLOGY CONSULT PROGRESS NOTE SERVICE DATE: 08/28/2019 SERVICE TIME: 8:15 AM Subjective INTERVAL HPI: Pt followed for diabetes mellitus type 2 with complications. Tr from [facility]; adm for right foot infection and gangrene; [...] 2019 TIME: 8:31 AM PAGER: [phone] Normal [facility] Hemogram/Diffon 08-28-2019 Abs Immature Grans 0.21 thou/cmm High 0.00-0.05 [facility] Comment on above: Performed By: #### G LMET #### [place] [address] Abs Neut (ANC) 7.25 thou/cmm High 1.78-5.38 [facility] Comment on above: Performed By: #### G LMET #### [place] [address] Abs. Baso 0.02 thou/cmm Normal 0.01-0.08 [facility] Comment on above: Performed By: #### G LMET #### [place] [address] Abs. [place] 0.96 thou/cmm High 0.30-0.82 [facility] Comment on above: Performed By: #### G LMET #### [place] [address] Basophils/100 WBC (Bld) 0.2 % Normal [facility] Comment on above: Performed By: #### G LMET #### [place] [address] Eosinophils (Bld) [#/Vol] 0.16 thou/cmm Normal 0.04-0. 54 [facility] Comment on above: Performed By: #### G LMET #### [place] [address] Eosinophils/100 WBC (Bld) 1.5 % Normal [facility] Comment on above: Performed By: #### G LMET #### [place] [address] Erythrocyte distribution width (RBC) [Ratio] 13.4 % Normal 11.6-14.4 [facility] Comment on above: Performed By: #### G LMET #### [facility] [address] [place] [address] Hematocrit (Bld) [Volume fraction] 29.8 % Low 40.1-51.0 [facility] Comment on above: Performed By: #### G LMET #### [facility] [address] [place] [address] Hemoglobin (Bld) [Mass/Vol] 9.5 g/dL Low 13.7-17.5 [facility] Comment on above: Performed By: #### G LMET #### [facility] [address] [place] [address] Immature Grans 2.00 % Normal [facility] Comment on above: Performed By: #### G LMET #### [facility] [address] [place] [address] Lymphocytes (Bld) [#/Vol] 1.82 thou/cmm Normal 0.84-2. 85 [facility] Comment on above: Performed By: #### G LMET #### [facility] [address] [place] [address] Lymphocytes/100 WBC (Bld) 17.5 % Normal [facility] Comment on above: Performed By: #### G LMET #### [facility] [address] [place] [address] MCH (RBC) [Entitic mass] 28.4 pg Normal 25.7-32.2 [facility] Comment on above: Performed By: #### G LMET #### [facility] [address] [place] [address] MCHC (RBC) [Mass/Vol] 31.9 % Low 32.3-36.5 [facility] Comment on above: Performed By: #### G LMET #### [facility] [address] [place] [address] MCV (RBC) [Entitic vol] 89.2 fL Normal 83.2-95.[address] [facility] Comment on above: Performed By: #### G LMET #### [facility] [address] [place], [place] [address] Monocytes/100 WBC (Bld) 9.2 % Normal [facility] Comment on above: Performed By: #### G LMET #### [facility] [address] [place], [place] [address] Platelet mean volume (Bld) [Entitic vol] 9.6 fL Normal 8.7-12.0 [facility] Comment on above: Performed By: #### G LMET #### [facility] [address] [place], [place] [address] Platelets (Bld) [#/Vol] 390 thou/cmm High 141-365 [facility] Comment on above: Performed By: #### G LMET #### [facility] [address] [place] [address] RBC (Bld) [#/Vol] 3.34 mil/cmm Low 4.63-6.08 [facility] Comment on above: Performed By: #### G LMET #### [place] [address] RDW SD 43.3 fl Normal 36.1-45.8 [facility] Comment on above: Performed By: #### G LMET #### [place] [address] Seg Neutrophil 69.6 % Normal [facility] Comment on above: Performed By: #### G LMET #### [address] [address] WBC (Bld) [#/Vol] 10.42 thou/cmm High 4.23-9.07 [facility] Comment on above: Performed By: #### G LMET #### [facility] [address] [place] [address] Magnesium Bloodon 08-28-2019 Magnesium [Mass/Vol] 1.1 mg/dL Low 1.6-2.6 [facility] Comment on above: Performed By: #### F ERR #### [place] [address] NM CARDIAC PERF STRESS/PHARM on 08-28-2019 NM [...] 60 minutes later. See administered doses below. [facility] Date of service: 08/28/2019 9:30:00 AM [...] during test. Final ------ Stress ECG Report: [facility] Date of service: 08/28/2019 9:30:00 AM Ordering physician: GOLD Estes Specialist: Tawana Larson Braille Typist: Libert[place] Rose Stress ECG interpreting physician: Shira [...] for age. The double product achieved was [address]. Peak heart rate was 98 bpm and [...] index (CRI): 0.51 Rate Pressure Product (RPP): 61647 Reason for test termination: End of Protocol. [...] chest sx during test Final ------ Stress Histology Manager Report: [facility] Date of service: 08/28/2019 9:30:00 AM Supervising physician: Shira Zuleta MD PATIENT: Name: ELIZABETH MODI Age: 79 years Gender: M The supervising physician was present during the stress procedure. Final Electron Microscopist: RICHARD Transcribe Date/Time: Aug 28 2019 9:30A Dictated by : IGNACIA MENDEZ MD This examination was interpreted and the report reviewed and electronically signed by: IGNACIA MENDEZ MD on Aug 28 2019 3:54PM EST Normal [facility] NURSING PROGon 08-28-2019 NURSING PROG HNO ID: [id number] Author: Tawana SantiagoRn) KAVIN Larson Service: Cardiovascular Testing Author Type: Registered Nurse Type: Nursing Progress Note Filed: 08/28/2019 2:58 PM Note Text: Dr Zuleta notified of labs prior to testing.Lexiscan Nuclear Stress Test procedure explained. Patient verbalized understanding and test completed with post nuclear scan to follow. Normal [facility] OPERATIVE NOon 08-28-2019 OPERATIVE NO HNO ID: [id number] Author: Jovanny Parmar Service: Vascular Surgery Author Type: Physician Type: Operative Report Filed: 08/29/2019 3:01 PM Note Text: [facility] - Operative Report ELIZABETH MODI : 1940 AGE: 79. SEX: M PATIENT TYPE: I HOSP SVC: INTM LOCATION: [facility] ATTENDING PHYSICIAN: Jovanny Parmar MD CSN NUMBER: [id number] DATE OF SURGERY/PROCEDURE: 08/27/2019 INCISION/PROCEDURE START TIME: 10:01 AM INCISION CLOSE/PROCEDURE END TIME: 10:55 AM PREOPERATIVE DIAGNOSIS: Gangrene. POSTOPERATIVE DIAGNOSIS: Gangrene. SURGEON: Jovanny Parmar MD HAND TENNIS BALL COVERER: Tom Prescott. SURGERY/PROCEDURE: Angiogram with bilateral lower [...] serially upsized using Seldinger technique through a 5-Puerto Rican sheath and Omni Flush catheter. Aortogram was [...] Recovery in stable condition. 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 Reasonable efforts were made to correct any dictation errors that resulted due to the programming of this software but some may still be present. Normal [facility] PROGRESS HNO ID: [id number] Author: Lula Posada (Rt) Service: Radiology Author Type: Mechanical Door Repairer Type: Progress Notes Filed: 08/28/2019 3:12 PM [...] No IV SITE: Inpatient - refer to [facility] documentation POST EXAM PIV STATUS: Left in for next appointment PROCEDURE TYPE: NM Stress: 12.2mCi [id number]-Gpytyow was administered IV for Rest Imaging at 1250 by ms. 35.9 mCi Mn71m-Ehbhtqt was administered IV for Stress Imaging at 240 by ty. ADMINISTRATION TIME: 1250 PATIENT DISCHARGED TO: Patient taken to IP transport area for return to RNF/ICU/ED. A Diagnostic radioactive procedure has taken place, with no further precautions necessary other than routine body substance precautions. More information regarding radiation safety can be found using this link: [email or web address] [email or web address] SIGNATURE: RT Albino PATIENT NAME: Elizabeth Modi DATE: August 28, 2019 TIME: 3:11 PM PAGER/CONTACT #: Mela [facility] PROGRESS HNO ID: [id number] Author: Francine Roberts Service: Vascular Surgery Author [...] questions or concerns Mon-Fri 6a-5p please page [phone]. After 5pm and on Weekends and Holidays, please page [phone] if in ICU or [phone] if on [...] 08/27/196[address] - 08/28/1965808/28/19699 - 08/29/19 0659 Shift 6741-2156 7721-2301 3844-9928 24 Hour Total 4882-0387 8075-4174 0530-2810 24 Hour Total INTAKE PO 30 30 [...] of bed to chair - [facility] - Plan for OR Monday for femoral [...] ICU or 2174 if on RNF. Normal [facility] Phosphorus Bloodon 0 Phosphate [Mass/Vol] 3.3 mg/dL Normal 2.5-4.9 [facility] Comment on above: Performed By: #### P 8 #### [facility] [address] [place] [id number] THERAPY NTon 08-28-2019 THERAPY NT HNO ID: [id number] Author: Tanja (Pt) Hoda Service: Physical Therapy Author Type: Physical Therapist Type: Therapy (PT/OT/Speech/Resp) Filed: 08/28/2019 3:32 PM Note Text: PHYSICAL THERAPY MISSED VISIT SERVICE DATE: 08/28/2019 SERVICE TIME: 1529 to 1529 ROOM: [id number]- Attempted Treatment. Patient not seen due to Test/Procedure(out of room for stress test). Will reattempt as able. SIGNATURE: Tanja Drummond, PT PATIENT NAME: Elizabeth Modi DATE: August 28, 2019 TIME: 3:30 PM Normal [facility] THERAPY NT HNO ID: [id number] Author: An SantiagoOtr/Vickie Miller Service: Occupational Therapy Author Type: Occupational Therapist Type: Therapy (PT/OT/Speech/Resp) Filed: 08/28/2019 11:27 AM Note Text: Occupational Therapy Treatment SERVICE DATE: 08/28/2019 SERVICE TIME: 1026 to 1105 ROOM: [id number] Recommended Discharge Disposition: Acute Rehab Recommended Discharge [...] (ADL);General symptoms and signs-other Interventions Provided: Self Fpc Management (80067) Self Fpc Management (58940) Treatment Minutes: 39 3 units Skilled Intervention(s):Full [...] for surgery. Reason for Occupational Therapy Consult: LAND INSPECTOR Relevant Past Medical History: thyroid, HTN, DM, [...] Environment Patient Lives With: Self/Alone Assistance Available: multimedia journalist Entry To Home: Stairs;With Rail Number Of [...] details for this therapy evaluation/treatment. SIGNATURE: NADIR Soto/Sereen PATIENT NAME: Elizabeth Modi DATE: August 28, 2019 TIME: 11:17 AM Normal [facility] ANES [place] 08-27-2019 ANES POST HNO ID: [id number] Author: Oanh Pugh Service: Anesthesiology Author Type: [...] ANES PREOPon 08-27-2019 ANES PREOP HNO ID: [id number] Author: Jesse Jimenez Service: Anesthesiology Author Type: [...] infusion 100 mL/hr INTRAVENOUS CONTINUOUS Tom (Res) Kenyon, DO 100 mL/hr at 08/27/19 0024 100 mL/hr [...] DAILY Jennifer (Res) Horattas 40 mg at 08/26/193 - [MAR Hold due to Transfer] lisinopril [...] August 27, 2019 TIME: 11:00 AM CSN: [id number] Normal [facility] BRIEF OP NOTon 08-27-2019 BRIEF OP NOT HNO ID: [id number] Author: Tom Prescott DO Service: General Surgery [...] BRIEF OPERATIVE / PROCEDURE NOTE LOG ID: [id number] SURGERY/PROCEDURE DATE: 08/27/2019 INCISION/PROCEDURE START TIME: 10:01 AM INCISION CLOSE/PROCEDURE END TIME: 10:55 AM SURGEON(S)/PROCEDURALI ST(S) AND HAND TENNIS BALL COVERER(S): Surgeon(s) and Role: * Jovanny Parmar - Primary * Tom Prescott DO - Resident - Assisting Latex Thread Machine Operator: Lori Schmid SA SURGERY/PROCEDURE(S): Diagnostic bilatera lower extremity angiogram ANESTHESIA: Monitored Anesthesia Care FINDINGS: 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 ESTIMATED BLOOD LOSS: 5 mls SPECIMENS: None COMPLICATIONS: None PRE-OP/PRE-PROCEDURE DIAGNOSIS: Right lower extremity ischemia, wet gangreen POST-OP/POST-PROCEDURE DIAGNOSIS: Same as Preop SIGNATURE: Tom Prescott DO PATIENT NAME: Elizabeth Modi DATE: August 27, 2019 TIME: 11:08 AM PAGER/CONTACT #: Mela [facility] CONSULTon 08-27-2019 CONSULT HNO ID: [id number] Author: Gold Sullivan Service: Cardiovascular Medicine Author [...] 27, 2019 TIME: 3:27 PM PAGER/CONTACT #: [phone] [facility] CONSULT PROGon 08-27-2019 CONSULT PROG HNO ID: [id number] Author: Doris Eden Service: Endocrinology Author Type: Physician Type: Consult Progress Note Filed: 08/27/2019 8:02 AM Note Text: ENDOCRINOLOGY CONSULT PROGRESS NOTE SERVICE DATE: 08/27/2019 SERVICE TIME: 7:50 AM Subjective INTERVAL HPI: Pt followed for diabetes mellitus type 2 with complications. Tr from [facility]; adm for right foot infection and gangrene; [...] August 27, 2019 TIME: 8:02 AM PAGER: [phone] Normal [facility] IR ABDOMEN ANGIO W/ RUNOFFon 08-27-2019 IR ABDOMEN ANGIO W/ RUNOFF * * *Final Report* * * DATE OF EXAM: Aug 27 2019 11:22AM [facility] 0993 - IR ABDOMEN ANGIO W/ [...] Left reconstitution at the above-knee popliteal artery. Electron Microscopist: PSCB Transcribe Date/Time: Aug 29 2019 1:09P Dictated by : JOVANNY PARMAR MD This examination was interpreted and the report reviewed and electronically signed by: JOVANNY PARMAR MD on Aug 29 2019 1:12PM EST Normal [facility] NUTRITIONon 08-27-2019 NUTRITION HNO ID: [id number] Author: Carine Singh Service: Nutrition Therapy Author Type: Registered Dietitian Type: Nutrition Filed: 08/27/2019 3:14 PM Note Text: NUTRITION THERAPY PROGRESS NOTE SERVICE DATE: 08/27/2019 SERVICE TIME: 2:20 PM Nutrition Assessment: Recommended Malnutrition Diagnosis: Moderate Protein-Calorie Malnutrition (08/22/19 1436 : Keturah (Farm Contractor Buyer) Valery) Estimated kilocalorie needs: 3912-1561 Calorie Calculation Method: 30-35 kcals/kg Estimated protein [...] August 27, 2019 TIME: 2:20 PM PAGER: [phone] [facility] PROGRESSon 08-27-2019 PROGRESS HNO ID: [id number] Author: Tom Prescott DO Service: General Surgery [...] 0659 08/27/19 07 - 08/28/19 0659 Shift 9031-1731 7117-2642 2310-2745 24 Hour Total 9536-3072 2202-4801 9527-5520 24 Hour Total INTAKE PO 30 30 [...] questions or concerns Mon-Fri 6a-5p please page [phone]. After 5pm and on Weekends and Holidays, please page [phone] if in ICU or [phone] if on RNF. Normal [facility] PROGRESS HNO ID: [id number] Author: Sue Bianchi Service: Hospital Medicine Author Type: Physician Type: Progress Notes Filed: 08/27/2019 7:27 AM Note Text: DEPARTMENT OF HOSPITAL MEDICINE PROGRESS NOTE SERVICE DATE: 08/27/2019 SERVICE TIME: 7:24 AM Hospital Medicine/Primary Attending: Sue Bianchi DO NIGHT AND WEEKEND COVERAGE: After 7pm, please call cross cover pager #[phone] Subjective INTERVAL HPI: Patient seen and examined. [...] bowel sounds normally heard, no mass palpable MARKETING ENGINEER- cranial nerves 2 to 12 grossly intact, [...] 08/21/191914 vte non-pharmacologic prophylaxis - none indicated (wi,oh) 08/21/191914 activity - mobilize patient (wi,ny) VTE Prophylaxis: VTE prophylaxis appropriate Disposition: Home with [facility] Plan of care discussed with: Provider, RN, Patient SIGNATURE: Sue Bianchi DO PATIENT NAME: Elizabeth Modi DATE: August 27, 2019 TIME:7:24 AM PAGER/CONTACT #: [phone] Normal [facility] THERAPY NTon 08-27-2019 THERAPY NT HNO ID: [id number] Author: Tanja (Pt) Hoda Service: Physical Therapy Author Type: Physical Therapist Type: Therapy (PT/OT/Speech/Resp) Filed: 08/27/2019 9:33 AM Note Text: PHYSICAL THERAPY MISSED VISIT SERVICE DATE: 08/27/2019 SERVICE TIME: 0932 to 0932 ROOM: [place]-OR Attempted Treatment. Patient not seen due to Test/Procedure(at angiogram). Will follow. SIGNATURE: Tanja Drummond PT PATIENT NAME: Elizabeth Modi DATE: August 27, 2019 TIME: 9:33 AM Normal [facility] THERAPY NT HNO ID: [id number] Author: Maricarmen SantiagoOtr/Vickie Good Service: Occupational Therapy Author Type: Occupational Therapist Type: Therapy (PT/OT/Speech/Resp) Filed: 08/27/2019 9:12 AM Note Text: OCCUPATIONAL THERAPY MISSED VISIT SERVICE DATE: 08/27/2019 SERVICE TIME: 09 to 0911 ROOM: [place]-OR (S) Attempted Treatment. Patient not seen due to Surgery. Will follow and reassess post op. SIGNATURE: NADIR Hopper/Serene PATIENT NAME: Elizabeth Modi DATE: August 27, 2019 TIME: 9:12 AM Normal [facility] Basic Panelon 08-26-2019 Creatinine [Mass/Vol] 0.86 mg/dL Normal 0.67-1.17 [facility] Comment on above: Result Comment: Use of this assay is not recommended for patients undergoing treatment with phenindione, due to the potential for falsely depressed results. Performed By: #### P 8 #### [facility] [address] [place], [place] [address] Anion gap [Moles/Vol] 12 mmol/L Normal 8-16 [facility] Comment on above: Performed By: #### P 8 #### [facility] [address] [place], [place] [address] CO2 [Moles/Vol] 25 mmol/L Normal 21-32 [facility] Comment on above: Performed By: #### P 8 #### [facility] [address] [place], [place] [address] Urea nitrogen [Mass/Vol] 18 mg/dL Normal 7-18 [facility] Comment on above: Performed By: #### P 8 #### [facility] [address] [place], [place] [address] Calcium [Mass/Vol] 7.8 mg/dL Low 8.5-10.1 [facility] Comment on above: Performed By: #### P 8 #### [facility] [address] [place], [place] [address] Glucose [Mass/Vol] 114 mg/dL High 70-99 [facility] Comment on above: Performed By: #### P 8 #### [facility] [address] [place], [place] [address] Chloride [Moles/Vol] 104 mmol/L Normal 98-107 [facility] Comment on above: Performed By: #### P 8 #### [facility] [address] [place], [place] [address] Potassium [Moles/Vol] 3.8 mmol/L Normal 3.5-5.1 [facility] Comment on above: Performed By: #### P 8 #### [facility] [address] [place], [place] [address] Sodium [Moles/Vol] 137 mmol/L Normal 136-145 [facility] Comment on above: Performed By: #### P 8 #### [facility] [address] [place], [place] [address] CASE MANAGEMon 08-26-2019 CASE MANAGEM HNO ID: [id number] Author: Christina Crandall Sec Service: Care Management Author Type: ? Type: Care Mgt Progress Note Filed: 08/26/2019 10:50 AM Note Text: CARE MANAGEMENT PROGRESS NOTE SERVICE DATE: 08/26/2019 SERVICE TIME: 1000 LOS: 5 days IMM Follow Up Copy Given: Yes Copy given to:: Patient Method: In Person SIGNATURE: Christina Perez PATIENT NAME: Elizabeth Modi DATE: August 26, 2019 TIME: 10:50 AM PAGER/CONTACT #: [phone] [facility] CASE MANAGEM HNO ID: [id number] Author: Tami SantiagoRn) KAVIN Patricio Service: Care Management Author Type: Registered Nurse Type: Care Mgt Progress Note Filed: 08/26/2019 10:17 AM Note Text: CARE MANAGEMENT PROGRESS NOTE SERVICE DATE: 08/26/2019 SERVICE TIME: 10:15 AM LOS: 5 days Chart reviewed. Plan now is for arteriogram likely next week and then possibly bka v aka pending results. Vascular and Ortho follow. Referral to [facility] for AR. Will follow clinical progress. SIGNATURE: Tami Patricio RN PATIENT NAME: Elizabeth Modi DATE: August 26, 2019 TIME: 10:15 AM PAGER/CONTACT #: [phone] [facility] CONSULT PROGon 08-26-2019 CONSULT PROG HNO ID: [id number] Author: Doris Eden Service: Endocrinology Author Type: Physician Type: Consult Progress Note Filed: 08/26/2019 8:09 AM Note Text: ENDOCRINOLOGY CONSULT PROGRESS NOTE SERVICE DATE: 08/26/2019 SERVICE TIME: 8:00 AM Subjective INTERVAL HPI: Pt followed for diabetes mellitus type 2 with complications. Tr from [facility]; adm for right foot infection and gangrene; [...] 2019 TIME: 8:09 AM PAGER: [phone] Normal [facility] Hemogram/Diffon 08-26-2019 Abs Immature Grans 0.20 thou/cmm [facility] Comment on above: Performed By: #### M AG #### [place] [address] Abs Neut (ANC) 6.48 thou/cmm High 1.78-5.38 [facility] Comment on above: Performed By: #### M AG #### [place] [address] Abs. Baso 0.04 thou/cmm Normal 0.01-0.08 [facility] Comment on above: Performed By: #### M AG #### [place] [address] Abs. [place] 0.93 thou/cmm High 0.30-0.82 [facility] Comment on above: Performed By: #### M AG #### [facility] [address] [place], [place] [address] Basophils/100 WBC (Bld) 0.4 % Normal [facility] Comment on above: Performed By: #### M AG #### [facility] [address] [place], [place] [address] Eosinophils (Bld) [#/Vol] 0.21 thou/cmm Normal 0.04-0. 54 [facility] Comment on above: Performed By: #### M AG #### [facility] [address] [place], [place] [address] Eosinophils/100 WBC (Bld) 2.1 % Normal [facility] Comment on above: Performed By: #### M AG #### [facility] [address] [place], [place] [address] Erythrocyte distribution width (RBC) [Ratio] 13.3 % Normal 11.6-14.4 [facility] Comment on above: Performed By: #### M AG #### [facility] [address] [place], [place] [address] Hematocrit (Bld) [Volume fraction] 32.3 % Low 40.1-51.0 [facility] Comment on above: Performed By: #### M AG #### [facility] [address] [place], [place] [address] Hemoglobin (Bld) [Mass/Vol] 10.5 g/dL Low 13.7-17.5 [facility] Comment on above: Performed By: #### M AG #### [facility] [address] [place], [place] [address] Immature Grans 2.00 % Normal [facility] Comment on above: Performed By: #### M AG #### [facility] [address] [place], [place] [address] Lymphocytes (Bld) [#/Vol] 2.34 thou/cmm Normal 0.84-2. 85 [facility] Comment on above: Performed By: #### M AG #### [facility] [address] [place], [place] [address] Lymphocytes/100 WBC (Bld) 22.9 % Normal [facility] Comment on above: Performed By: #### M AG #### [facility] [address] [place], [place] [address] MCH (RBC) [Entitic mass] 28.6 pg Normal 25.7-32.2 [facility] Comment on above: Performed By: #### M AG #### [facility] [address] [place], [place] [address] MCHC (RBC) [Mass/Vol] 32.5 % Normal 32.3-36.5 [facility] Comment on above: Performed By: #### M AG #### [place] [address] MCV (RBC) [Entitic vol] 88.0 fL Normal 83.2-95.[address] [facility] Comment on above: Performed By: #### M AG #### [place] [address] Monocytes/100 WBC (Bld) 9.1 % Normal [facility] Comment on above: Performed By: #### M AG #### [place] [address] Platelet mean volume (Bld) [Entitic vol] 9.5 fL Normal 8.7-12.0 [facility] Comment on above: Performed By: #### M AG #### [place] [address] Platelets (Bld) [#/Vol] 474 thou/cmm High 141-365 [facility] Comment on above: Performed By: #### M AG #### [place] [address] RBC (Bld) [#/Vol] 3.67 mil/cmm Low 4.63-6.08 [facility] Comment on above: Performed By: #### M AG #### [place] [address] RDW SD 43.1 fl Normal 36.1-45.8 [facility] Comment on above: Performed By: #### M AG #### [place] [address] Seg Neutrophil 63.5 % Normal [facility] Comment on above: Performed By: #### M AG #### [facility] [address] [place], [place] [address] WBC (Bld) [#/Vol] 10.21 thou/cmm High 4.23-9.07 [facility] Comment on above: Performed By: #### M AG #### [facility] [address] [place], [place] [address] PROGRESSon 08-26-2019 PROGRESS HNO ID: [id number] Author: Sue Bianchi Service: Hospital Medicine Author Type: Physician Type: Progress Notes Filed: 08/26/2019 1:35 PM Note Text: DEPARTMENT OF HOSPITAL MEDICINE PROGRESS NOTE SERVICE DATE: 08/26/2019 SERVICE TIME: 1:34 PM Hospital Medicine/Primary Attending: Sue Bianchi, DO NIGHT AND WEEKEND COVERAGE: After 7pm, please call cross cover pager #[phone] Subjective INTERVAL HPI: Patient seen and examined. [...] bowel sounds normally heard, no mass palpable MARKETING ENGINEER- cranial nerves 2 to 12 grossly intact, [...] 08/21/191914 vte non-pharmacologic prophylaxis - none indicated ([place]) 08/21/191914 activity - mobilize patient ([place]) VTE Prophylaxis: VTE prophylaxis appropriate Disposition: Home with [facility] Plan of care discussed with: Provider, RN, Patient SIGNATURE: Sue Bianchi DO PATIENT NAME: Elizabeth Modi DATE: August 26, 2019 TIME:1:34 PM PAGER/CONTACT #: [phone] [facility] PROGRESS HNO ID: [id number] Author: Tom Prescott DO Service: General Surgery [...] questions or concerns Mon-Fri 6a-5p please page [phone]. After 5pm and on Weekends and Holidays, please page [phone] if in ICU or [phone] if on [...] questions or concerns Mon-Fri 6a-5p please page [phone]. After 5pm and on Weekends and Holidays, please page [phone] if in ICU or [phone] if on RNF. Normal [facility] THERAPY NTon 08-26-2019 THERAPY NT HNO ID: [id number] Author: Maricarmen Ochoar/Vickie Good Service: Occupational Therapy Author Type: Occupational Therapist Type: Therapy (PT/OT/Speech/Resp) Filed: 08/26/2019 11:15 AM Note Text: Occupational Therapy Treatment SERVICE DATE: 08/26/2019 SERVICE TIME: 919 to 944 ROOM: [place] [address] Recommended Discharge Disposition: Acute Rehab Justification For [...] (ADL);General symptoms and signs-other Interventions Provided: Self Fpc Management (42066);Therapeutic Exercise (83518) Therapeutic Exercise (74254) Treatment Minutes: 10 1 unit Skilled Intervention(s): [...] to patient shrugging shoulders during activity. 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 Pt reported no pain and was agreeable to therapy. 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: multimedia journalist Entry To Home: Stairs;With Rail Number Of [...] CONSULT PROGon 08-25-2019 CONSULT PROG HNO ID: [id number] Author: Doris Eden Service: Endocrinology Author Type: Physician Type: Consult Progress Note Filed: 08/25/2019 9:29 AM Note Text: ENDOCRINOLOGY CONSULT PROGRESS NOTE SERVICE DATE: 08/25/2019 SERVICE TIME: 9:10 AM Subjective INTERVAL HPI: Pt followed for diabetes mellitus type 2 with complications. Tr from [facility]; adm for right foot infection and gangrene; [...] August 25, 2019 TIME: 9:29 AM PAGER: [phone] Normal [facility] PLAN OF CAREon 08-25-2019 PLAN OF CARE HNO ID: [id number] Author: Francine Roberts Service: General Surgery Author [...] [facility] PRO[facility]ESSon 08-25-2019 PROGRESS HNO ID: [id number] Author: Sue Bianchi Service: Hospital Medicine Author Type: Physician Type: Progress Notes Filed: 08/25/2019 4:34 PM Note Text: DEPARTMENT OF HOSPITAL MEDICINE PROGRESS NOTE SERVICE DATE: 08/25/2019 SERVICE TIME: 1:10 PM Hospital Medicine/Primary Attending: Sue Bianchi, DO NIGHT AND WEEKEND COVERAGE: After 7pm, please call cross cover pager #[phone] Subjective INTERVAL HPI: Patient seen and examined. [...] bowel sounds normally heard, no mass palpable MARKETING ENGINEER- cranial nerves 2 to 12 grossly intact, [...] 08/21/191914 vte non-pharmacologic prophylaxis - none indicated ([place]) 08/21/191914 activity - mobilize patient ([place]) VTE Prophylaxis: VTE prophylaxis appropriate Disposition: Home with [facility] Plan of care discussed with: Provider, RN, Patient SIGNATURE: Sue Bianchi DO PATIENT NAME: Elizabeth Modi DATE: August 25, 2019 TIME:1:10 PM PAGER/CONTACT #: [phone] [facility] PROGRESS HNO ID: [id number] Author: Francine Roberts Service: General Surgery Author [...] questions or concerns Mon-Fri 6a-5p please page [phone]. After 5pm and on Weekends and Holidays, please page [phone] if in ICU or [phone] if on RNF. Subjective SUBJECTIVE: Denies leg [...] Therapy: Room Air IANDO: Date 08/24/19699 - 08/25/19 0608/25/19699 - 08/26/19 0659 Shift 2284-1226 0567-5019 1249-4761 24 Hour Total 1536-0437 4488-2664 9494-4099 24 Hour Total INTAKE Shift Total OUTPUT [...] ICU or 2174 if on RNF. Normal [facility] Basic Panelon 08-24-2019 Creatinine [Mass/Vol] 0.76 mg/dL Normal 0.67-1.17 [facility] Comment on above: Result Comment: Use of this assay is not recommended for patients undergoing treatment with phenindione, due to the potential for falsely depressed results. Performed By: #### G LMET #### [address] [address] Anion gap [Moles/Vol] 10 mmol/L Normal 8-16 [facility] Comment on above: Performed By: #### G LMET #### [address] [address] CO2 [Moles/Vol] 20 mmol/L Low 21-32 [facility] Comment on above: Performed By: #### G LMET #### [address] [address] Glucose [Mass/Vol] 107 mg/dL High 70-99 [facility] Comment on above: Performed By: #### G LMET #### [facility] [address] [place], [place] [address] Urea nitrogen [Mass/Vol] 12 mg/dL Normal 7-18 [facility] Comment on above: Performed By: #### G LMET #### [address] [address] Calcium [Mass/Vol] 7.9 mg/dL Low 8.5-10.1 [facility] Comment on above: Performed By: #### G LMET #### [facility] [address] [place], [place] [address] Chloride [Moles/Vol] 105 mmol/L Normal 98-107 [facility] Comment on above: Performed By: #### G LMET #### [facility] [address] [place], [place] [address] Potassium [Moles/Vol] 4.4 mmol/L Normal 3.5-5.1 [facility] Comment on above: Performed By: #### G LMET #### [facility] [address] [place], [place] [address] Sodium [Moles/Vol] 131 mmol/L Low 136-145 [facility] Comment on above: Performed By: #### G LMET #### [facility] [address] [place], [place] [address] CONSULT PROGon 08-24-2019 CONSULT PROG HNO ID: [id number] Author: Hermila Gallegos Service: Endocrinology Author Type: [...] August 24, 2019 TIME: 3:12 PM PAGER: [phone] Normal [facility] CONSULT PROG HNO ID: [id number] Author: Martha Ryan (Pharmacist) Service: Pharmacy Author [...] pharmacy if questions. MARTHA RYAN, PHARMACIST Ext: [phone] Normal [facility] Hemogram/Diffon 08-24-2019 Abs Immature Grans 0.19 thou/cmm High 0.00-0.05 [facility] Comment on above: Performed By: #### M AG #### [place] [address] Abs Neut (ANC) 6.15 thou/cmm High 1.78-5.38 [facility] Comment on above: Performed By: #### M AG #### [place] [address] Abs. Baso 0.04 thou/cmm Normal 0.01-0.08 [facility] Comment on above: Result Comment: Smea r scanned; tech agrees with automated differential Performed By: #### M AG #### [place] [address] Abs. [place] 0.75 thou/cmm Normal 0.30-0.82 [facility] Comment on above: Performed By: #### M AG #### [facility] [address] [place], [place] [address] Basophils/100 WBC (Bld) 0.4 % Normal [facility] Comment on above: Performed By: #### M AG #### [facility] [address] [place], [place] [address] Eosinophils (Bld) [#/Vol] 0.20 thou/cmm Normal 0.04-0. 54 [facility] Comment on above: Performed By: #### M AG #### [facility] [address] [place], [place] [address] Eosinophils/100 WBC (Bld) 2.2 % Normal [facility] Comment on above: Performed By: #### M AG #### [facility] [address] [place], [place] [address] Immature Grans 2.10 % Normal [facility] Comment on above: Performed By: #### M AG #### [facility] [address] [place], [place] [address] Lymphocytes (Bld) [#/Vol] 1.86 thou/cmm Normal 0.84-2. 85 [facility] Comment on above: Performed By: #### M AG #### [facility] [address] [place], [place] [address] Lymphocytes/100 WBC (Bld) 20.2 % Normal [facility] Comment on above: Performed By: #### M AG #### [facility] [address] [place], [place] [address] Monocytes/100 WBC (Bld) 8.2 % Normal [facility] Comment on above: Performed By: #### M AG #### [facility] [address] [place], [place] [address] Seg Neutrophil 66.9 % Normal [facility] Comment on above: Performed By: #### M AG #### [facility] [address] [place], [place] [address] Erythrocyte distribution width (RBC) [Ratio] 13.3 % Normal 11.6-14.4 [facility] Comment on above: Performed By: #### M AG #### [facility] [address] [place] [address] Hematocrit (Bld) [Volume fraction] 36.9 % Low 40.1-51.0 [facility] Comment on above: Performed By: #### M AG #### [facility] [address] [place] [address] Hemoglobin (Bld) [Mass/Vol] 11.7 g/dL Low 13.7-17.5 [facility] Comment on above: Performed By: #### M AG #### [facility] [address] [place] [address] MCH (RBC) [Entitic mass] 28.1 pg Normal 25.7-32.2 [facility] Comment on above: Performed By: #### M AG #### [facility] [address] [place] [address] MCHC (RBC) [Mass/Vol] 31.7 % Low 32.3-36.5 [facility] Comment on above: Performed By: #### M AG #### [place] [address] MCV (RBC) [Entitic vol] 88.7 fL Normal 83.2-95.[address] [facility] Comment on above: Performed By: #### M AG #### [place] [address] Platelet mean volume (Bld) [Entitic vol] 9.5 fL Normal 8.7-12.0 [facility] Comment on above: Performed By: #### M AG #### [place] [address] Platelets (Bld) [#/Vol] 428 thou/cmm High 141-365 [facility] Comment on above: Performed By: #### M AG #### [place] [address] RBC (Bld) [#/Vol] 4.16 mil/cmm Low 4.63-6.08 [facility] Comment on above: Performed By: #### M AG #### [place] [address] RDW SD 43.4 fl Normal 36.1-45.8 [facility] Comment on above: Performed By: #### M AG #### [facility] [address] [place], [place] [address] WBC (Bld) [#/Vol] 9.20 thou/cmm High 4.23-9.07 [facility] Comment on above: Performed By: #### M AG #### [facility] [address] [place], [place] [address] Magnesium Bloodon 08-24-2019 Magnesium [Mass/Vol] 2.4 mg/dL Normal 1.6-2.6 [facility] Comment on above: Performed By: #### M AG #### [facility] [address] [place], [place] [address] PROGRESSon 08-24-2019 PROGRESS HNO ID: [id number] Author: Sue Bianchi Service: Hospital Medicine Author Type: Physician Type: Progress Notes Filed: 08/24/2019 5:16 PM Note Text: DEPARTMENT OF HOSPITAL MEDICINE PROGRESS NOTE SERVICE DATE: 08/24/2019 SERVICE TIME: 12:40 PM Hospital Medicine/Primary Attending: Sue Bianchi, DO NIGHT AND WEEKEND COVERAGE: After 7pm, please call cross cover pager #[phone] Subjective INTERVAL HPI: Patient seen and examined. [...] bowel sounds normally heard, no mass palpable MARKETING ENGINEER- cranial nerves 2 to 12 grossly intact, [...] 08/21/191914 vte non-pharmacologic prophylaxis - none indicated ([place]) 08/21/191914 activity - mobilize patient ([place] VTE Prophylaxis: VTE prophylaxis appropriate Disposition: Home with [facility] Plan of care discussed with: Provider, RN, Patient SIGNATURE: Sue Bianchi DO PATIENT NAME: Elizabeth Modi DATE: August 24, 2019 TIME:12:40 PM PAGER/CONTACT #: etx [phone] Normal [facility] PROGRESS HNO ID: [id number] Author: Edy Paredes Service: Infectious Disease Author Type: Physician Type: Progress Notes Filed: 08/24/2019 9:20 AM Note Text: Edy Paredes MD, MS, FACP, [facility] Division of Infectious Diseses [address] [place] [address] Office: [phone] INFECTIOUS DISEASE CONSULT PROGRESS NOTE SERVICE DATE: [...] off. SIGNATURE: Edy Paredes MD, MS, FACP, [facility] PATIENT NAME: Elizabeth Modi DATE: August 24, 2019 TIME: 9:16 AM PAGER/CONTACT #: [phone] [facility] PROGRESS HNO ID: [id number] Author: Francine Roberts Service: Vascular Surgery Author [...] questions or concerns Mon-Fri 6a-5p please page [phone]. After 5pm and on Weekends and Holidays, please page [phone] if in ICU or [phone] if on [...] 0659 08/24/19 07 - 08/25/19 0659 Shift 8548-1023 0877-5936 7019-2067 24 Hour Total 4054-3816 3555-2438 9247-7787 24 Hour Total INTAKE IV 625 625 OR Crystalloid intake (mL) 250 250 Volume (mL) (lactated ringers infusion) 125 125 Volume (mL) (vancomycin iv piggyback 1.25 g in D5W 250 mL (VANCOCIN)) 250 250 Shift Total 625 625 OUTPUT Urine 366 296 9772 Void (ml) 256 988 7696 Blood 50 50 Estimated Blood loss 50 50 Shift Total 637 903 0584 Weight (kg) 85 85 85 85 85 [...] 3 g in NaCl 0.9% 100 mL MB+/ADD-[place] (UNASYN) 3 g INTRAVENOUS q 6 H [...] ICU or 2174 if on RNF. Normal [facility] Phosphorus Bloodon 0 Phosphate [Mass/Vol] 2.3 mg/dL Low 2.5-4.9 [facility] Comment on above: Performed By: #### G LMET #### [address] [address] THERAPY NTon 08-24-2019 THERAPY NT HNO ID: [id number] Author: Lizeth (PtSmitha Cobos Service: Physical Therapy Author Type: Physical Therapist Type: Therapy (PT/OT/Speech/Resp) Filed: 08/24/2019 2:49 PM Note Text: Physical Therapy Evaluation SERVICE DATE: 08/24/2019 SERVICE TIME: 1325 to 1346 ROOM: [place] [address] Recommended Discharge Disposition: Acute Rehab Recommended Discharge [...] Weakness (generalized) Interventions Provided: Evaluation $ Evaluation-Low (03867) Billed Units: 1 unit History and examination [...] Environment Patient Lives With: Self/Alone Assistance Available: multimedia journalist Entry To Home: Stairs;With Rail Number Of [...] August 24, 2019 TIME: 2:43 PM Normal [facility] THERAPY NT HNO ID: [id number] Author: Susan SantiagoOtr/L) Isidra Service: Occupational Therapy Author Type: Occupational Therapist Type: Therapy (PT/OT/Speech/Resp) Filed: 08/24/2019 1:07 PM Note Text: Occupational Therapy Evaluation SERVICE DATE: 08/24/2019 SERVICE TIME: 1133 to 1208 ROOM: [place] [address] Recommended Discharge Disposition: Acute Rehab Justification For [...] (ADL);General symptoms and signs-other Interventions Provided: Evaluation;Self Fpc Management (46472) $ Evaluation-Moderate (66342) Billed Units: 1 unit OT Evaluation Moderate [...] occupational performance: thyroid, HTN, DM, claudication Self Fpc Management (16562) Treatment Minutes: 10 1 unit Skilled Intervention(s): [...] lower extremity. 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 Patient agreeable to therapy. I have no pain at all." Denies pain before/after transfers. 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: multimedia journalist(dtr) Entry To Home: Stairs;With Rail(bilat rails) Number [...] details for this therapy evaluation/treatment. SIGNATURE: NADIR Cox/Serene PATIENT NAME: Elizabeth Modi DATE: August 24, 2019 TIME: 1:01 PM Normal [facility] ANES [place] 08-23-2019 ANES POST HNO ID: [id number] Author: Sj Huizar Service: Anesthesiology Author Type: [...] ANES PREOPon 08-23-2019 ANES PREOP HNO ID: [id number] Author: jS Huizar Service: Anesthesiology Author Type: [...] Units SUBCUTANEOUS q 12 H Mohammad F Anabaptist 5,000 Units at 08/22/19 0807 - [MAR Hold due to Transfer] aluminum-magnesium hydroxide-simethicone 200-200-20 mg/5 mL 30 mL (MAALOX,MYLANTA,MAG-AL PLUS) 30 mL ORAL DAILY PRN Mohammad F Anabaptist - [MAR Hold due to Transfer] ondansetron 4 mg tab(s) (ZOFRAN) 4 mg ORAL q 6 H PRN Mohammad F Anabaptist Or - [MAR Hold due to Transfer] ondansetron (PF) 4 mg injection (ZOFRAN) 4 mg INTRAVENOUS q 6 H PRN Mohammad F Anabaptist - [MAR Hold due to Transfer] polyethylene glycol 3350 17 g packet (MIRALAX, GLYCOLAX) 17 g ORAL DAILY PRN Mohammad F Anabaptist - [MAR Hold due to Transfer] docusate sodium 100 mg cap(s) (COLACE) 100 mg ORAL BID PRN Mohammad F Anabaptist - [MAR Hold due to Transfer] magnesium hydroxide 400 mg/5 mL 30 mL (MOM) 30 mL ORAL DAILY PRN Mohammad F Anabaptist - [MAR Hold due to Transfer] bisacodyl 10 mg suppository (DULCOLAX) 10 mg RECTAL DAILY PRN Mohammad F Anabaptist - [MAR Hold due to Transfer] acetaminophen 650 mg tab(s) (TYLENOL) 650 mg ORAL q 6 H PRN Mohammad F Anabaptist - [MAR Hold due to Transfer] atorvastatin 40 mg tab(s) (LIPITOR) 40 mg ORAL DAILY Mohammad F Anabaptist 40 mg at 08/22/192009 - [MAR Hold due to Transfer] lisinopril 10 mg tab(s) (ZESTRIL, PRINIVIL) 10 mg ORAL DAILY Mohammad F Anabaptist 10 mg at 08/22/19 0807 - [MAR Hold due to Transfer] levothyroxine 25 mcg tab(s) (SYNTHROID) 25 mcg ORAL DAILY Mohammad F Anabaptist 25 mcg at 08/22/19 0600 - [MAR Hold due to Transfer] insulin lispro pen (rapid acting) (HumaLOG KWIKPEN) SUBCUTANEOUS w MEALS AND HS Mohammad F Anabaptist 1 Units at 08/22/192128 - [MAR Hold due to Transfer] dextrose 40 % 15 g 15 g ORAL PRN Mohammad F Anabaptist Or - [MAR Hold due to Transfer] glucagon 1 mg injection (GLUCAGEN) 1 mg INTRAMUSCULAR PRN Mohammad F Anabaptist Or - [MAR Hold due to Transfer] dextrose 50% in water 25 mL syringe 12.5 g INTRAVENOUS PRN Mohammad F Anabaptist - [MAR Hold due to Transfer] vancomycin iv piggyback 1.25 g in D5W 250 mL (VANCOCIN) 1.25 g INTRAVENOUS q 12 HR Mohammad F Anabaptist 250 mL/hr at 08/22/192009 1.25 g at 08/22/192009 - [MAR Hold due to Transfer] vancomycin dosing and monitoring per pharmacy OTHER As Directed Mohammad F Anabaptist - [MAR Hold due to Transfer] piperacillin-tazobacta m iv piggyback 3.375 g in dextrose (iso-osmotic) 50 mL (ZOSYN) 3.375 g INTRAVENOUS q 6 H Mohammad F Anabaptist 100 mL/hr at 08/23/19 0549 3.375 g at 08/23/19 0549 - [MAR Hold due to Transfer] clindamycin iv piggyback 600 mg in D5W 50 mL (CLEOCIN) 600 mg INTRAVENOUS q 6 H Mohammad F Anabaptist 100 mL/hr at 08/23/19 0549 600 mg [...] August 23, 2019 TIME: 8:32 AM CSN: [id number] Normal [facility] BRIEF OP NOTon 08-23-2019 BRIEF OP NOT HNO ID: [id number] Author: Jennifer Crooks Service: General Surgery Author Type: Resident Type: Brief Op Note Filed: 08/23/2019 9:35 AM Note Text: Attestation signed by Gordo Figueroa at 08/23/2019 10:01 AM I was present for the entire procedure and performed the procedure with the assistance of the resident and the surgical coordinator BRIEF OP / PROCEDURE NOTE LOG ID: [id number] Surgery/Procedure Date: 08/23/2019 Incision/Procedure Start Time: 8:42 AM Incision Close/Procedure End Time: 9:04 AM Surgeon(s)/Procedurali st(s) and Braille Typist(s): Surgeon(s) and Role: * Gordo Huang Figueroa - Primary No Additional Staff Procedure(s): [...] 2019 TIME: 9:29 AM PAGER/CONTACT #: Normal [facility] Basic Panelon 08-23-2019 Creatinine [Mass/Vol] 0.88 mg/dL Normal 0.67-1.17 [facility] Comment on above: Result Comment: Use of this assay is not recommended for patients undergoing treatment with phenindione, due to the potential for falsely depressed results. Performed By: #### P 8 #### [address] [address] Glucose [Mass/Vol] 96 mg/dL Normal 70-99 [facility] Comment on above: Performed By: #### P 8 #### [address] [address] Anion gap [Moles/Vol] 12 mmol/L Normal 8-16 [facility] Comment on above: Performed By: #### P 8 #### [address] [address] Calcium [Mass/Vol] 7.2 mg/dL Low 8.5-10.1 [facility] Comment on above: Performed By: #### P 8 #### [address] [place], [place] [address] CO2 [Moles/Vol] 22 mmol/L Normal 21-32 [facility] Comment on above: Performed By: #### P 8 #### [facility] [address] [place], [place] [address] Urea nitrogen [Mass/Vol] 15 mg/dL Normal 7-18 [facility] Comment on above: Performed By: #### P 8 #### [facility] [address] [place], [place] [address] Chloride [Moles/Vol] 103 mmol/L Normal 98-107 [facility] Comment on above: Performed By: #### P 8 #### [facility] [address] [place], [place] [address] Potassium [Moles/Vol] 3.8 mmol/L Normal 3.5-5.1 [facility] Comment on above: Performed By: #### P 8 #### [facility] [address] [place], [place] [address] Sodium [Moles/Vol] 133 mmol/L Low 136-145 [facility] Comment on above: Performed By: #### P 8 #### [address] [address] CASE MGT INIT ASSESon 2019 CASE MGT INIT ASSES HNO ID: [id number] Author: Tami (Rn) KAVIN Patricio Service: Care Management Author Type: Registered Nurse Type: Care Mgt Initial Assessment Filed: 08/23/2019 3:20 PM Note Text: CARE MANAGEMENT: ASSESSMENT AND DISCHARGE PLAN SERVICE DATE: August 23, 2019 SERVICE TIME: 3:18 PM PRIMARY CARE PHYSICIAN: No primary care provider on file. 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 Last discharge within 30 days: No Advance Directive: Current Advance Directive: None Horse Rancher Attempted to Assist with AD Completion: Yes [...] Mostly I feel financially burdened by my vib-iq-wxxpkj expenses for my prescription medication:: 0 - Agree Somewhat Risk Score: 0 Patient is categorized as: Low risk < 2 Are you interested in bedside delivery of your medications? No Is Patient Psychosocially Complex?: No ASSESSMENT AND PLAN: Medical Needs: Medical Needs: None Psychosocial Needs: Psychosocial Needs: None FREEDOM OF CHOICE EXPLAINED: [place] of Choice Given: Yes Level of Care Discussed: Inpatient Rehab Facility Financial Disclosure Provided: Yes Financial Disclosure Comments: ESR Provider List: (Pt refused list- would like [facility]. ) POTENTIAL TRANSITION PLANS Rehab Facility Spoke with pt at the bedside. 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 Pt states that he has a PCP in [place]. Pt is s/p right foot amp. Anticipate AR needs at d/c. Await PT/OT evals. Pt would like [facility] rehab- referral sent. Pt will need auth and likely transport at d/c. Will follow. SIGNATURE: Tami Patricio RN PATIENT NAME: Elizabeth Modi DATE: August 23, 2019 TIME: 3:18 PM PAGER/CONTACT #: [phone] [facility] CONSULTon 08-23-2019 CONSULT HNO ID: [id number] Author: Doris Eden Service: Endocrinology Author Type: Physician Type: Consults Filed: 08/23/2019 1:21 PM Note Text: I have reviewed the patient's medical record in detail. Consult note dictated. See orders for Lantus/oral agents. Can use OTC Novolin N at home. Doris Eden MD. [facility] CONSULT HNO ID: [id number] Author: Doris Eden Service: Endocrinology Author Type: Physician Type: Consults Filed: 08/25/2019 9:16 AM Note Text: [facility] - Consultation PATIENT NAME: ELIZABETH MODI CSN: [id number] DATE OF : 1940 SEX/AGE: M/79 PATIENT TYPE: [place] [facility] [place] [facility] LOCATION: [id number] DATE OF SERVICE: 08/23/2019 TIME OF SERVICE: 01:15 PM REFERRING PHYSICIAN: Dexter Chávez MD REASON FOR CONSULTATION: Uncontrolled diabetes. HISTORY OF PRESENT ILLNESS: The patient is a 79-year-old male, who was transferred from [facility] with gangrene off right foot toes. Patient [...] Lantus 10. Doris Eden MD Endocrinology SM:modserene /[id number] [facility] CONSULT PROGon 08-23-2019 CONSULT PROG HNO ID: [id number] Author: Isac Navarro (Pharmacist) Service: Pharmacy Author [...] [place] any questions[place] [phone]. Age: [age] year old Allergies: ALLERGIES No [...] 08/23/2019 1830 22.0 ISAC NAVARRO, PHARMACIST Normal [facility] CONSULT PROG HNO ID: [id number] Author: Paulo Landis Service: Infectious Disease Author [...] labs Paulo Landis MD Infectious Disease Respiratory [place] Pager: [phone] August 23, 2019 Normal [facility] Hemogram/Diffon 08-23-2019 Abs Immature Grans 0.19 thou/cmm High 0.00-0.05 [facility] Comment on above: Performed By: #### M AG #### [place] [address] Abs Neut (ANC) 15.52 thou/cmm High 1.78-5.38 [facility] Comment on above: Performed By: #### M AG #### [place] [address] Abs. Baso 0.04 thou/cmm Normal 0.01-0.08 [facility] Comment on above: Result Comment: Smea r scanned; tech agrees with automated differential Performed By: #### M AG #### [place] [address] Abs. [place] 1.45 thou/cmm High 0.30-0.82 [facility] Comment on above: Performed By: #### M AG #### [facility] [address] [place], [place] [address] Basophils/100 WBC (Bld) 0.2 % Normal [facility] Comment on above: Performed By: #### M AG #### [facility] [address] [place], [place] [address] Eosinophils (Bld) [#/Vol] 0.21 thou/cmm Normal 0.04-0. 54 [facility] Comment on above: Performed By: #### M AG #### [facility] [address] [place], [place] [address] Eosinophils/100 WBC (Bld) 1.1 % Normal [facility] Comment on above: Performed By: #### M AG #### [facility] [address] [place], [place] [address] Immature Grans 1.00 % Normal [facility] Comment on above: Performed By: #### M AG #### [facility] [address] [place], [place] [address] Lymphocytes (Bld) [#/Vol] 1.39 thou/cmm Normal 0.84-2. 85 [facility] Comment on above: Performed By: #### M AG #### [facility] [address] [place], [place] [address] Lymphocytes/100 WBC (Bld) 7.4 % Normal [facility] Comment on above: Performed By: #### M AG #### [facility] [address] [place], [place] [address] Monocytes/100 WBC (Bld) 7.7 % Normal [facility] Comment on above: Performed By: #### M AG #### [facility] [address] [place], [place] [address] Seg Neutrophil 82.6 % Normal [facility] Comment on above: Performed By: #### M AG #### [facility] [address] [place], [place] [address] Erythrocyte distribution width (RBC) [Ratio] 13.2 % Normal 11.6-14.4 [facility] Comment on above: Performed By: #### M AG #### [facility] [address] [place] [address] Hematocrit (Bld) [Volume fraction] 31.0 % Low 40.1-51.0 [facility] Comment on above: Performed By: #### M AG #### [facility] [address] [place] [address] Hemoglobin (Bld) [Mass/Vol] 10.2 g/dL Low 13.7-17.5 [facility] Comment on above: Performed By: #### M AG #### [facility] [address] [place] [address] MCH (RBC) [Entitic mass] 28.7 pg Normal 25.7-32.2 [facility] Comment on above: Performed By: #### M AG #### [facility] [address] [place] [address] MCHC (RBC) [Mass/Vol] 32.9 % Normal 32.3-36.5 [facility] Comment on above: Performed By: #### M AG #### [facility] [address] [place] [address] MCV (RBC) [Entitic vol] 87.1 fL Normal 83.2-95.[address] [facility] Comment on above: Performed By: #### M AG #### [place] [address] Platelet mean volume (Bld) [Entitic vol] 9.6 fL Normal 8.7-12.0 [facility] Comment on above: Performed By: #### M AG #### [facility] [address] [place] [address] Platelets (Bld) [#/Vol] 421 thou/cmm High 141-365 [facility] Comment on above: Performed By: #### M AG #### [facility] [address] [place] [address] RBC (Bld) [#/Vol] 3.56 mil/cmm Low 4.63-6.08 [facility] Comment on above: Performed By: #### M AG #### [place] [address] RDW SD 42.0 fl Normal 36.1-45.8 [facility] Comment on above: Performed By: #### M AG #### [place] [address] WBC (Bld) [#/Vol] 18.79 thou/cmm High 4.23-9.07 [facility] Comment on above: Performed By: #### M AG #### [place] [address] Hgb A1con 08-23-2019 HbA1c (Bld) [Mass fraction] 9.8 % High 4.2-6.3 [facility] Comment on above: Result Comment: Meth od is National Glycohemoglobin Standardization Program (NGSP) compliant. Performed By: #### M AG #### [place] [address] HbA1c (Bld) [Mass fraction] 235 mg/dl Normal [facility] Comment on above: Performed By: #### M AG #### [place] [address] MRSA Screenon 08-23-2019 MRSA DNA ARIELLE+probe Ql (Unsp spec) Test performed at [facility] No MRSA detected. Normal [facility] Comment on above: Performed By: #### F ERR #### [place] [address] Magnesium Bloodon 08-23-2019 Magnesium [Mass/Vol] 0.9 mg/dL Critically low 1.6-2.6 [facility] Comment on above: Performed By: #### M AG #### [place] [address] NURSING PROGon 08-23-2019 NURSING PROG HNO ID: [id number] Author: Karl (Rn) AKVIN Russell Service: Nursing Author Type: Registered Nurse Type: Nursing Progress Note Filed: 08/23/2019 9:27 AM Note Text: Fall risk protocol initiated. Fall risk wrist band applied and yellow sock applied to left foot. SR up x2. Call light in reach. Urinal offered. Normal [facility] NURSING PROG HNO ID: [id number] Author: Marita SantiagoRn) KAVIN Aponte Service: Nursing Author Type: Registered Nurse Type: Nursing Progress Note Filed: 08/23/2019 8:09 AM Note Text: Tech here to take pt to presurgery unit . Pt showing no signs of distress voicing no complaints. Pt taken via cart to presurgery unit Normal [facility] NURSING PROG HNO ID: [id number] Author: Marita SantiagoRn) KAVIN Aponte Service: Nursing [...] she gets here. Daughter states ubderstanding Normal [facility] NURSING PROG HNO ID: [id number] Author: Marita Izquierdo) KAVIN Aponte Service: Nursing Author Type: Registered Nurse Type: Nursing Progress Note Filed: 08/23/2019 8:11 AM Note Text: Dr. Figueroa into see pt. Dr. Figueroa informing pt that surgery has been moved up to this morning. Pt states understanding. Normal [facility] OPERATIVE NOon 08-23-2019 OPERATIVE NO HNO ID: [id number] Author: Gordo Figueroa Service: Vascular Surgery Author Type: Physician Type: Operative Report Filed: 08/23/2019 1:07 PM Note Text: [facility] - Operative Report ELIZABETH MODI : 1940 AGE: 79. SEX: M PATIENT TYPE: I [place] [facility] [place] [facility] LOCATION: [id number] ATTENDING PHYSICIAN: Ara Singer M.D. CSN NUMBER: [id number] DATE OF SURGERY/PROCEDURE: 08/23/2019 INCISION/PROCEDURE START TIME: 8:42 AM INCISION CLOSE/PROCEDURE END TIME: 9:04 AM PREOPERATIVE DIAGNOSIS: Gangrenous changes of the right foot with gas in the subcutaneous tissues. POSTOPERATIVE DIAGNOSIS: Gangrenous changes of the right foot with gas in the subcutaneous tissues. SURGEON: Gordo Figueroa MD HAND TENNIS BALL COVERER: 1. Jennifer Crooks M.D. 2. Irvin Walker, surgical coordinator. SURGERY/PROCEDURE: Guillotine right above ankle/below-knee amputation. ANESTHESIA: [...] area in stable condition. Gordo Figueroa MD DJW:[id number] /[id number] Normal [facility] PROGRESSon 08-23-2019 PROGRESS HNO ID: [id number] Author: Sue Bianchi Service: Hospital Medicine Author Type: Physician Type: Progress Notes Filed: 08/23/2019 3:48 PM Note Text: DEPARTMENT OF HOSPITAL MEDICINE PROGRESS NOTE SERVICE DATE: 08/23/2019 SERVICE TIME: 12:20 PM Hospital Medicine/Primary Attending: Sue Bianchi, DO NIGHT AND WEEKEND COVERAGE: After 7pm, please call cross cover pager #[phone] Subjective INTERVAL HPI: Patient seen and examined. [...] bowel sounds normally heard, no mass palpable MARKETING ENGINEER- cranial nerves 2 to 12 grossly intact, [...] 08/21/191914 vte non-pharmacologic prophylaxis - none indicated (wi,ny) 08/21/191914 activity - mobilize patient ([place], [place]) VTE Prophylaxis: VTE prophylaxis appropriate Disposition: Home with [facility] Plan of care discussed with: Provider, RN, Patient SIGNATURE: Sue Bianchi DO PATIENT NAME: Elizabeth Modi DATE: August 23, 2019 TIME:12:20 PM PAGER/CONTACT #: [phone] [facility] PROGRESS HNO ID: [id number] Author: Tom Prescott DO Service: General Surgery [...] questions or concerns Mon-Fri 6a-5p please page [phone]. After 5pm and on Weekends and Holidays, please page [phone] if in ICU or [phone] if on RNF. Subjective SUBJECTIVE: Patient seen [...] - 08/23/19 0608/23/19699 - 08/24/19 0659 Shift 5072-0824 2374-1777 0303-9865 24 Hour Total 4970-9437 5896-3631 5686-6962 24 Hour Total INTAKE PO 240 240 PO 240 240 Shift Total 240 240 OUTPUT Urine 500 879 009 5550 Void (ml) 500 171 266 4157 Shift Total 500 133 606 7200 Weight (kg) 85 85 85 85 85 [...] and plan discussed with attending: Dr. Figueroa, conduit reamer operator for Dr. Parmar SIGNATURE: Tom Prescott DO PATIENT NAME: Elizabeth Modi DATE: August 23, 2019 TIME: 8:02 AM Vascular AND Thoracic Surgery Service Pager: For questions or concerns Mon-Fri 6a-5p please page [phone]. After 5pm and on Weekends and Holidays, please page [phone] if in ICU or [phone] if on RNF. Normal [facility] PROGRESS HNO ID: [id number] Author: Cayetano Zapata MD Service: Orthopaedic Surgery [...] DATE: 08/23/19 TIME: 6:27 AM PAGER/CONTACT #: [phone] [facility] PROGRESS HNO ID: [id number] Author: Tom Prescott DO Service: General Surgery Author Type: Resident Type: Progress Notes Filed: 08/23/2019 1:43 AM Note Text: Patient seen multiple times throughout the evening. Care discussed with multiple RNs. 08/22/19 1400 08/22/19 1900 08/22/19 21108/23/19 0131 BP: 137/54 (!) 128/48 110/68 Pulse: [...] ICU or 2174 if on RNF. Normal [facility] Phosphorus Bloodon 0 Phosphate [Mass/Vol] 2.1 mg/dL Low 2.5-4.9 [facility] Comment on above: Performed By: #### M AG #### [place] [address] Vancomycin,Randomon 08-23-19 20 INR Coag (Bld) [Relative time] 22.0 mg/L Normal [facility] Comment on above: Result Comment: Trou gh 10.0-20.0 mg/L Peak 18.0-40.0 mg/L Performed By: #### C _ANA #### [place] [address] CONSULTon 08-22-2019 CONSULT HNO ID: [id number] Author: Paulo Landis Service: Infectious Disease Author [...] no longer doing that Employment: work with [employer] CURRENT ANTIBIOTICS: Zosyn Clindamycin vancomycin Current other [...] 22, 2019 TIME: 1:42 PM PAGER/CONTACT #: [phone] [facility] CONSULT HNO ID: [id number] Author: Yadi Badillo Service: Orthopaedic Surgery Author Type: Physician Type: Consults Filed: 08/22/2019 6:41 PM Note Text: ORTHOPAEDIC SURGERY CONSULT Pt: ELIZABETH MODI Date of Consultation: 08/22/2019 Physician Consulted: Dr. Badillo Reason for Consultation: Necrotic foot HPI: 79 year old male presented to [facility] on 08/21/2019 with complaints of changes [...] August 22, 2019 Time: 6:32 PM Normal [facility] CONSULT HNO ID: [id number] Author: Ana Luisa Crooks Service: General Surgery [...] of amputation. Will schedule for angiogram tomorrow 3/6/20 Signature: Jovanny Parmar MD Date: 08/22/2019 Time: 2:37 PM VASCULAR SURGERY CONSULT NOTE Vascular AND Thoracic Surgery Service Pager: For questions or concerns Mon-Fri 6a-5p please page [phone]. After 5pm and on Weekends and Holidays, please page [phone] if in ICU or [phone] if on RNF. Service date: 08/22/2019 Service time: 4:01 AM Reason for consult: foot wounds Nature of consult: routine Subjective HPI Mr. Modi is a 79 year old male with necrotic L foot. Patient reports that he has only noticed this over the last week. Initially presented to [place] for this reason and was transferred to [facility] for care. Denies pain and states [...] ICU or 2174 if on RNF. Normal [facility] CONSULT PROGon 08-22-2019 CONSULT PROG HNO ID: [id number] Author: Adali Murry Service: Wound Care Team Author Type: Nurse Specialist Type: Consult Progress Note Filed: 08/22/2019 11:19 AM Note Text: WOUND CARE CONSULT NUCLEAR EQUIPMENT SALES ENGINEER NOTE SERVICE DATE: 08/22/2019 SERVICE TIME: 0910 TIME SPENT (minutes): 30 REASON FOR CONSULT: Eval R foot necrosis/wound CHIEF COMPLAINT: c/o necrotic toes and tissue to R foot. Subjective HISTORY OF PRESENT ILLNESS: Mr. Modi is a 79 year old male who is seen today with Yolanda Jackman Wound/air support control officer, and presented to hospital with complaints of [...] found under the Get Images tab on [employer] Photos are uploaded by the wound primary health care nurse and may not be immediately available for viewing. Contact the wound and ostomy care department with questions. SIGNATURE: Adali Murry APRN.MARKETING ENGINEER PATIENT NAME: Elizabeth Modi DATE: August 22, 2019 TIME: 11:03 AM CONTACT#: [id number] [facility] CONSULT PROG HNO ID: [id number] Author: Jose Walton (Pharmacist) Service: Pharmacy Author [...] have any questions, please contact Pharmacy at [phone]. Age: [age] year old Allergies: ALLERGIES No [...] results found for: PEGGY Walton, Pharmacist Pager: [phone] [facility] Comprehensive Panelon 2019 ALP [Catalytic activity/Vol] 107 U/L Normal 45-117 [facility] Comment on above: Performed By: #### C _ANA #### [facility] [address] [place], [place] [address] Bilirubin [Mass/Vol] 0.5 mg/dL Normal 0.2-1.0 [facility] Comment on above: Result Comment: Use of this assay is not recommended for patients undergoing treatment with eltrombopag due to the potential for falsely elevated results. Performed By: #### C _ANA #### [facility] [address] [place], [place] [address] Protein [Mass/Vol] 6.4 g/dL Normal 6.4-8.2 [facility] Comment on above: Performed By: #### C _ANA #### [facility] [address] [place], [place] [address] ALT [Catalytic activity/Vol] 73 U/L Normal 12-78 [facility] Comment on above: Performed By: #### C _ANA #### [facility] [address] [place], [place] [address] AST [Catalytic activity/Vol] 81 U/L High 15-37 [facility] Comment on above: Performed By: #### C _ANA #### [facility] [address] [place], [place] [address] Creatinine [Mass/Vol] 0.95 mg/dL Normal 0.67-1.17 [facility] Comment on above: Result Comment: Use of this assay is not recommended for patients undergoing treatment with phenindione, due to the potential for falsely depressed results. Performed By: #### C _ANA #### [facility] [address] [place], [place] [address] Albumin [Mass/Vol] 1.7 g/dL Low 3.4-5.0 [facility] Comment on above: Performed By: #### C _ANA #### [facility] [address] [place], [place] [address] Anion gap [Moles/Vol] 12 mmol/L Normal 8-16 [facility] Comment on above: Performed By: #### C _ANA #### [facility] [address] [place], [place] [address] Calcium [Mass/Vol] 7.1 mg/dL Low 8.5-10.1 [facility] Comment on above: Performed By: #### C _ANA #### [facility] [address] [place], [place] [address] CO2 [Moles/Vol] 21 mmol/L Normal 21-32 [facility] Comment on above: Performed By: #### C _ANA #### [facility] [address] [place], [place] [address] Glucose [Mass/Vol] 218 mg/dL High 70-99 [facility] Comment on above: Performed By: #### C _ANA #### [facility] [address] [place] [address] Urea nitrogen [Mass/Vol] 31 mg/dL High 7-18 [facility] Comment on above: Performed By: #### C _ANA #### [facility] [address] [place], [place] [address] Chloride [Moles/Vol] 104 mmol/L Normal 98-107 [facility] Comment on above: Performed By: #### C _ANA #### [facility] [address] [place], [place] [address] Potassium [Moles/Vol] 4.1 mmol/L Normal 3.5-5.1 [facility] Comment on above: Performed By: #### C _ANA #### [facility] [address] [place], [place] [address] Sodium [Moles/Vol] 133 mmol/L Low 136-145 [facility] Comment on above: Performed By: #### C _ANA #### [facility] [address] [place], [place] [address] Cult and Smr CAROLINE and AERon 0 08-22-2019 Cult and Smr CAROLINE and AER Test performed at [facility] Rare Mixed skin javier. Moderate Mixed anaerobic javier. No Bacteroides fragilis group isolated. No Clostridium perfringens isolated. Many Gram positive cocci No WBC seen Rare Squamous epithelial cells Normal [facility] Comment on above: Performed By: #### C _ANA #### [facility] [address] [place] [address] Ferritinon 08-22-2019 Ferritin [Mass/Vol] 1342.20 ng/mL High 26.00-3 88.0 0 [facility] Comment on above: Performed By: #### F ERR #### [facility] [address] [place] [address] Folateon 08-22-2019 Folate 3.80 ng/mL Normal 3.10-17.50 [facility] Comment on above: Performed By: #### P 8 #### [facility] [address] [place] [address] Hemogramon 08-22-2019 Erythrocyte distribution width (RBC) [Ratio] 13.2 % Normal 11.6-14.4 [facility] Comment on above: Performed By: #### F ERR #### [facility] [address] [place] [address] Hematocrit (Bld) [Volume fraction] 28.4 % Low 40.1-51.0 [facility] Comment on above: Performed By: #### F ERR #### [facility] [address] [place] [address] Hemoglobin (Bld) [Mass/Vol] 9.4 g/dL Low 13.7-17.5 [facility] Comment on above: Performed By: #### F ERR #### [facility] [address] [place] [address] MCH (RBC) [Entitic mass] 28.7 pg Normal 25.7-32.2 [facility] Comment on above: Performed By: #### F ERR #### [facility] [address] [place] [address] MCHC (RBC) [Mass/Vol] 33.1 % Normal 32.3-36.5 [facility] Comment on above: Performed By: #### F ERR #### [facility] [address] [place] [address] MCV (RBC) [Entitic vol] 86.9 fL Normal 83.2-95.6 [facility] Comment on above: Performed By: #### F ERR #### [facility] [address] [place] [address] Platelet mean volume (Bld) [Entitic vol] 9.7 fL Normal 8.7-12.0 [facility] Comment on above: Performed By: #### F ERR #### [facility] [address] [place] [address] Platelets (Bld) [#/Vol] 380 thou/cmm High 141-365 [facility] Comment on above: Performed By: #### F ERR #### [facility] [address] [place] [address] RBC (Bld) [#/Vol] 3.27 mil/cmm Low 4.63-6.08 [facility] Comment on above: Performed By: #### F ERR #### [facility] [address] [place] [address] RDW SD 41.6 fl Normal 36.1-45.8 [facility] Comment on above: Performed By: #### F ERR #### [facility] [address] [place] [address] WBC (Bld) [#/Vol] 19.76 thou/cmm High 4.23-9.07 [facility] Comment on above: Performed By: #### F ERR #### [facility] [address] [place] [address] Iron % Saturationon 08-22-19 20 Iron % Saturation 15 % Low 20-55 [facility] Comment on above: Performed By: #### M AG #### [facility] [address] [place] [address] Iron Binding Cap. 150 ug/dL Low 250-450 [facility] Comment on above: Performed By: #### M AG #### [place] [address] Iron Serum 23 ug/dL Low 65-175 [facility] Comment on above: Performed By: #### M AG #### [place] [address] MRI FOOT/TOES WO IVCON RTon 08-22-2019 MRI [...] be reactive or related to early osteomyelitis. Electron Microscopist: ONEL Transcribe Date/Time: Aug 22 2019 12:47P Dictated by : PRISCILA RUELAS MD This examination was interpreted and the report reviewed and electronically signed by: PRISCILA RUELAS MD on Aug 22 2019 1:06PM EST Normal [facility] NURSING PROGon 08-22-2019 NURSING PROG HNO ID: [id number] Author: Marita SantiagoRn) KAVIN Aponte Service: Nursing Author Type: Registered Nurse Type: Nursing Progress Note Filed: 08/22/2019 2:17 PM Note Text: Dr. Parmar into see pt. Pt to be scheduled for angiogram tomorrow. Pt states understanding of procedure Normal [facility] NUTRITIONon 08-22-2019 NUTRITION HNO ID: [id number] Author: Marisol Zimmerman) ALEIDA Falcon Service: Nutrition [...] of fat/muscle stores;Patient/family self-report Estimated kilocalorie needs: 8425-5866 Calorie Calculation Method: 30-35 kcals/kg Estimated protein [...] Inflammation: Hyperglycemia;Hypoalbu minemia;Imaging studies SIGNATURE: Kacie Marquez Farm Contractor Buyer PATIENT NAME: Elizabeth Modi DATE: August 22, 2019 TIME: 2:27 PM PAGER: [phone] Normal [facility] PROGRESSon 08-22-2019 PROGRESS HNO ID: [id number] Author: Sue Bianchi Service: Hospital Medicine Author Type: Physician Type: Progress Notes Filed: 08/22/2019 3:29 PM Note Text: DEPARTMENT OF HOSPITAL MEDICINE PROGRESS NOTE SERVICE DATE: 08/22/2019 SERVICE TIME: 2:32 PM Hospital Medicine/Primary Attending: Sue Bianchi, DO NIGHT AND WEEKEND COVERAGE: After 7pm, please call cross cover pager #[phone] Subjective INTERVAL HPI: Patient seen and examined. [...] bowel sounds normally heard, no mass palpable MARKETING ENGINEER- cranial nerves 2 to 12 grossly intact, [...] 08/21/191914 vte non-pharmacologic prophylaxis - none indicated (wi,ny) 08/21/191914 activity - mobilize patient ([place], [place]) VTE Prophylaxis: VTE prophylaxis appropriate Disposition: Home with [facility] Plan of care discussed with: Provider, RN, Patient SIGNATURE: Sue Bianchi DO PATIENT NAME: Elizabeth Modi DATE: August 22, 2019 TIME: 2:32 PM PAGER/CONTACT #: [phone] Normal [facility] US ARTERIAL PVR LOWERon US ARTERIAL PVR LOWER * * *Final Report* * * DATE OF EXAM: Aug 22 2019 10:00AM A2U 1107 - US ARTERIAL PVR LOWER / PROCEDURE REASON: necrotic right foot * * * * Physician Interpretation * * * * Non-Invasive Vascular Laboratory [facility] Lower Extremity Arterial Physiology Study Bilateral/Complete [...] Interpreting physician: Ryan Allen MD Final RP Electron Microscopist: Relay FoodsHADLEY Transcribe Date/Time: Aug 22 2019 9:04A Dictated by : RYAN ALLEN MD This examination was interpreted and the report reviewed and electronically signed by: RYAN ALLEN MD on Aug 22 2019 11:41AM EST Normal [facility] Vitamin B12on 08-22-2019 Cobalamin (Vitamin B12) [Mass/Vol] 944 pg/mL Normal 193-986 [facility] Comment on above: Performed By: #### P 8 #### [place] [address] CONSULT PROGon 08-21-2019 CONSULT PROG HNO ID: [id number] Author: Rahat Lemus (Pharmacist) Service: Pharmacy Author Type: Pharmacist Type: Consult Progress Note Filed: 08/21/2019 9:20 PM Note Text: Renal Dose Monitoring 1. Estimated CrCl: 52 (calculated from previous lab reported from of 1.2 and using IBW) 2. Recommendations: Zosyn 3.375g Dose:No Change Frequency:Increase frequency to Q6H - Rationale: Patient CrCl is greater than 40 and being infused over 30 minutes Pharmacy [id number] Normal [facility] CONSULT PROG HNO ID: [id number] Author: Rahat Lemus (Pharmacist) Service: Pharmacy Author [...] have any questions[place] [phone]. Age: [age] year old Allergies: ALLERGIES No [...] results found for: PEGGY LEMUS, PHARMACIST Normal [facility] HISTORY PHYSICALon 0 HISTORY PHYSICAL HNO ID: [id number] Author: Karyna Perez Service: Hospital Medicine Author [...] After 7pm, please call cross cover pager #[phone] Subjective CHIEF COMPLAINT / REASON FOR ADMISSION: Right foot gangrene HPI: This is a 79 year old male has a past medical history of DM (diabetes mellitus) (HCC), Dyslipidemia, HTN (hypertension), and Hypothyroidism. sent as a transfer from [facility] for blackish coloration of multiple toe [...] the right foot and was sent to [facility] for further evaluation.For this illness, patient's [...] this note may have been generated using Connexity voice recognition software. Reasonable efforts were made to correct any dictation errors that resulted due to the programming of this software but some may still be present. Normal [facility] HOSPon 08-21-2019 HOSP Patient:Elizabeth Modi MRN: [...] After 7pm, please call cross cover pager #[phone] Subjective CHIEF COMPLAINT / REASON FOR ADMISSION: Right foot gangrene HPI: This is a 79 year old male has a past medical history of DM (diabetes mellitus) (HCC), Dyslipidemia, HTN (hypertension), and Hypothyroidism. sent as a transfer from [facility] for blackish coloration of multiple toe [...] the right foot and was sent to [facility] for further evaluation.For this illness, patient's [...] this note may have been generated using Connexity voice recognition software. Reasonable efforts were made to correct any dictation errors that resulted due to the programming of this software but some may still be present. Previous Version RAHAT LEMUS, PHARMACIST 08/21/2019 9:11 PM Signed PHARMACY VANCOMYCIN DOSING NOTE Patient Name: lEizabeth Modi Admission Date: 08/21/2019 Date of Consult: [...] have any questions, [place] [phone]. Age: [age] year old Allergies: ALLERGIES No [...] and being infused over 30 minutes Pharmacy [id number] Ana Luisa Crooks MD 08/22/2019 6:04 AM [...] questions or concerns Mon-Fri 6a-5p please page [phone]. After 5pm and on Weekends and Holidays, please page [phone] if in ICU or [phone] if on RNF. Service date: 08/22/2019 Service time: 4:01 AM Reason for consult: foot wounds Nature of consult: routine Subjective HPI Mr. Modi is a 79 year old male with necrotic L foot. Patient reports that he has only noticed this over the last week. Initially presented to [place] for this reason and was transferred to [facility] for care. Denies pain and states [...] have any questions, please contact Pharmacy at [phone]. Age: [age] year old Allergies: ALLERGIES No [...] results found for: PEGGY Walton, Pharmacist Pager: [phone] Previous Version Adali Murry APRN.MARKETING ENGINEER 08/22/2019 11:19 AM Signed WOUND CARE CONSULT NUCLEAR EQUIPMENT SALES ENGINEER NOTE SERVICE DATE: 08/22/2019 SERVICE TIME: 0910 TIME SPENT (minutes): 30 REASON FOR CONSULT: Eval R foot necrosis/wound CHIEF COMPLAINT: c/o necrotic toes and tissue to R foot. Subjective HISTORY OF PRESENT ILLNESS: Mr. Modi is a 79 year old male who is seen today with Yolanda Jackman Wound/air support control officer, and presented to hospital with complaints of [...] found under the Get Images tab on [employer]+. Photos are uploaded by the wound primary health care nurse and may not be immediately available for viewing. Contact the wound and ostomy care department with questions. SIGNATURE: Adali Murry APRN.CNS PATIENT NAME: Elizabeth Modi DATE: August 22, 2019 TIME: 11:03 AM CONTACT#: [id number] Yadi Badillo DPM 08/22/2019 6:41 PM Signed ORTHOPAEDIC SURGERY CONSULT Pt: ELIZABETH MODI Date of Consultation: 08/22/2019 Physician Consulted: Dr. Badillo Reason for Consultation: Necrotic foot HPI: 79 year old male presented to [facility] on 08/21/2019 with complaints of changes [...] no longer doing that Employment: work with [employer] CURRENT ANTIBIOTICS: Zosyn Clindamycin vancomycin Current other [...] of fat/muscle stores;Patient/family self-report Estimated kilocalorie needs: 8276-2375 Calorie Calculation Method: 30-35 kcals/kg Estimated protein [...] August 22, 2019 TIME: 2:27 PM PAGER: [phone] Previous Version Sue Bianchi DO 08/22/2019 3:29 PM Signed DEPARTMENT OF HOSPITAL MEDICINE PROGRESS NOTE SERVICE DATE: 08/22/2019 SERVICE TIME: 2:32 PM Hospital Medicine/Primary Attending: Sue Bianchi, NIGHT AND WEEKEND COVERAGE: After 7pm, please call cross cover pager #[phone] Subjective INTERVAL HPI: Patient seen and examined. [...] bowel sounds normally heard, no mass palpable MARKETING ENGINEER- cranial nerves 2 to 12 grossly intact, [...] 08/21/191914 vte non-pharmacologic prophylaxis - none indicated (wi,ny) 08/21/191914 activity - mobilize patient ([place], [place]) VTE Prophylaxis: VTE prophylaxis appropriate Disposition: Home with [facility] Plan of care discussed with: Provider, RN, Patient SIGNATURE: Sue Bianchi DO PATIENT NAME: Elizabeth Modi DATE: August 22, 2019 TIME: 2:32 PM PAGER/CONTACT #: [phone] [phone] Gordo Figueroa MD 08/23/2019 1:07 PM Signed [facility] - Operative Report ELIZABETH MODI : 1940 AGE: 79. SEX: M PATIENT TYPE: [place] [facility] [place] LOC[place]: [id number] ATTENDING PHYSICIAN: Ara Singer M.D. CSN NUMBER: [id number] DATE OF SURGERY/PROCEDURE: 08/23/2019 INCISION/PROCEDURE START TIME: 8:42 AM INCISION CLOSE/PROCEDURE END TIME: 9:04 AM PREOPERATIVE DIAGNOSIS: Gangrenous changes of the right foot with gas in the subcutaneous tissues. POSTOPERATIVE DIAGNOSIS: Gangrenous changes of the right foot with gas in the subcutaneous tissues. SURGEON: Gordo Figueroa MD HAND TENNIS BALL COVERER: 1. Jennifer Crooks M.D. 2. Irvin Walker, surgical coordinator. SURGERY/PROCEDURE: Guillotine right above ankle/below-knee amputation. ANESTHESIA: [...] recovery area in stable condition. MD DESMOND eLy:[id number] /[id number] Previous Version Doris Eden MD 08/25/2019 9:16 AM Signed [facility] - Consultation PATIENT NAME: ELIZABETH MODI [facility]: [id number] DATE OF : 1940 SEX/AGE: M/79 PATIENT TYPE: I [place] [facility] [place] LOCATION: [id number] DATE OF SERVICE: 08/23/2019 TIME OF SERVICE: 01:15 PM REFERRING PHYSICIAN: Dexter Chávez MD REASON FOR CONSULTATION: Uncontrolled diabetes. HISTORY OF PRESENT ILLNESS: The patient is a 79-year-old male, who was transferred from [facility] with gangrene off right foot toes. Patient [...] Lantus 10. Doris Eden MD Endocrinology SM:shima /[id number] Tom Prescott DO, 08/23/2019 1:43 AM Signed [...] questions or concerns Mon-Fri 6a-5p please page [phone]. After 5pm and on Weekends and Holidays, [...] RN, RN 08/23/2019 8:[address] Figueora into see pt. Dr. Figueroa informing pt [...] injection 5,000 Units SUBCUTANEOUS q 12 H Karyna Diego Anabaptist 5,000 Units at 08/22/19 0807 - [MAR Hold due to Transfer] aluminum-magnesium hydroxide-simethicone 200-200-20 mg/5 mL 30 mL (MAALOX,MYLANTA,MAG-AL PLUS) 30 mL ORAL DAILY PRN Mohammad F Anabaptist - [MAR Hold due to Transfer] ondansetron 4 mg tab(s) (ZOFRAN) 4 mg ORAL q 6 H PRN Mohammad F Anabaptist Or - [MAR Hold due to Transfer] ondansetron (PF) 4 mg injection (ZOFRAN) 4 mg INTRAVENOUS q 6 H PRN Mohammad F Anabaptist - [MAR Hold due to Transfer] polyethylene glycol 3350 17 g packet (MIRALAX, GLYCOLAX) 17 g ORAL DAILY PRN Mohammad F Anabaptist - [MAR Hold due to Transfer] docusate sodium 100 mg cap(s) (COLACE) 100 mg ORAL BID PRN Mohammad F Anabaptist - [MAR Hold due to Transfer] magnesium hydroxide 400 mg/5 mL 30 mL (MOM) 30 mL ORAL DAILY PRN Mohammad F Anabaptist - [MAR Hold due to Transfer] bisacodyl 10 mg suppository (DULCOLAX) 10 mg RECTAL DAILY PRN Mohammad F Anabaptist - [MAR Hold due to Transfer] acetaminophen 650 mg tab(s) (TYLENOL) 650 mg ORAL q 6 H PRN Mohammad F Anabaptist - [MAR Hold due to Transfer] atorvastatin 40 mg tab(s) (LIPITOR) 40 mg ORAL DAILY Mohammad F Anabaptist 40 mg at 08/22/192009 - [MAR Hold due to Transfer] lisinopril 10 mg tab(s) (ZESTRIL, PRINIVIL) 10 mg ORAL DAILY Mohammad F Anabaptist 10 mg at 08/22/19 0807 - [MAR Hold due to Transfer] levothyroxine 25 mcg tab(s) (SYNTHROID) 25 mcg ORAL DAILY Mohammad F Anabaptist 25 mcg at 08/22/19 0600 - [MAR Hold due to Transfer] insulin lispro pen (rapid acting) (HumaLOG KWIKPEN) SUBCUTANEOUS w MEALS AND HS Mohammad F Anabaptist 1 Units at 08/22/192128 - [MAR Hold due to Transfer] dextrose 40 % 15 g 15 g ORAL PRN Mohammad F Anabaptist Or - [MAR Hold due to Transfer] glucagon 1 mg injection (GLUCAGEN) 1 mg INTRAMUSCULAR PRN Mohammad F Anabaptist Or - [MAR Hold due to Transfer] dextrose 50% in water 25 mL syringe 12.5 g INTRAVENOUS PRN Mohammad F Anabaptist - [MAR Hold due to Transfer] vancomycin iv piggyback 1.25 g in D5W 250 mL (VANCOCIN) 1.25 g INTRAVENOUS q 12 HR Mohammad F Anabaptist 250 mL/hr at 08/22/192009 1.25 g at 08/22/192009 - [MAR Hold due to Transfer] vancomycin dosing and monitoring per pharmacy OTHER As Directed Mohammad F Anabaptist - [MAR Hold due to Transfer] piperacillin-tazobacta m iv piggyback 3.375 g in dextrose (iso-osmotic) 50 mL (ZOSYN) 3.375 g INTRAVENOUS q 6 H Mohammad F Anabaptist 100 mL/hr at 08/23/19 0549 3.375 g at 08/23/19 0549 - [MAR Hold due to Transfer] clindamycin iv piggyback 600 mg in D5W 50 mL (CLEOCIN) 600 mg INTRAVENOUS q 6 H Mohammad F Anabaptist 100 mL/hr at 08/23/19 0549 600 mg [...] August 23, 2019 TIME: 8:32 AM CSN: [id number] Previous Version Tom Prescott DO, DO 08/23/2019 [...] - 08/23/19 0608/23/19699 - 08/24/19 0659 Shift 7163-7055 5217-8099 6611-6639 24 Hour Total 2741-4258 4884-2805 4346-2656 24 Hour Total INTAKE PO 240 240 PO 240 240 Shift Total 240 240 OUTPUT Urine 500 219 394 4338 Void (ml) 500 488 789 4244 Shift Total 500 657 278 0193 Weight (kg) 85 85 85 85 85 [...] and plan discussed with attending: Dr. Figueroa, conduit reamer operator for Dr. Parmar SIGNATURE: Tom Prescott [...] assistance of the resident and the surgical coordinator BRIEF OP / PROCEDURE NOTE LOG ID: [id number] Surgery/Procedure Date: 08/23/2019 Incision/Procedure Start Time: 8:42 AM Incision Close/Procedure End Time: 9:04 AM Surgeon(s)/Procedurali st(s) and Braille Typist(s): Surgeon(s) and Role: * Gordo Figueroa - [...] Remarks: SIGNATURE: Sj Huizar DO PATIENT NAME: Eilzabeth Modi DATE: August 23, 2019 TIME: 11:24 AM PAGER/CONTACT #: [phone] Sue Bianchi DO 08/23/2019 3:48 PM Signed DEPARTMENT OF HOSPITAL MEDICINE PROGRESS NOTE SERVICE DATE: 08/23/2019 SERVICE TIME: 12:20 PM Hospital Medicine/Primary Attending: Sue Bianchi DO NIGHT AND WEEKEND COVERAGE: After 7pm, please call cross cover pager #[phone] Subjective INTERVAL HPI: Patient seen and examined. [...] bowel sounds normally heard, no mass palpable MARKETING ENGINEER- cranial nerves 2 to 12 grossly intact, [...] 08/21/191914 vte non-pharmacologic prophylaxis - none indicated (wi,ny) 08/21/191914 activity - mobilize patient ([place], [place]) VTE Prophylaxis: VTE prophylaxis appropriate Disposition: Home with [facility] Plan of care discussed with: Provider, RN, Patient SIGNATURE: Sue Bianchi DO PATIENT NAME: Elizabeth Modi DATE: August 23, 2019 TIME:12:20 PM PAGER/CONTACT #: [phone] Doris Eden MD 08/23/2019 1:21 PM Signed [...] Inpatient Needs Prior to Discharge: OT/PT Evaluation;Discharge Transportation;[facility] Facility;Precertificat ion MEDICAL: [facility] 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 Last discharge within 30 days: No Advance Directive: Current Advance Directive: None Horse Rancher Attempted to Assist with AD Completion: Yes [...] Mostly I feel financially burdened by my atr-tk-urxups expenses for my prescription medication:: 0 - Agree Somewhat Risk Score: 0 Patient is categorized as: Low risk < 2 Are you interested in bedside delivery of your medications? No Is Patient Psychosocially Complex?: No ASSESSMENT AND PLAN: Medical Needs: Medical Needs: None Psychosocial Needs: Psychosocial Needs: None FREEDOM OF CHOICE EXPLAINED: [place] of Choice Given: Yes Level of Care Discussed: Inpatient Rehab Facility Financial Disclosure Provided: Yes Financial Disclosure Comments: ESR Provider List: (Pt refused list- would like [facility]. ) POTENTIAL TRANSITION PLANS Rehab Facility Spoke with pt at the bedside. 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 Pt states that he has a PCP in [place]. Pt is s/p right foot amp. Anticipate AR needs at d/c. Await PT/OT evals. Pt would like [facility] rehab- referral sent. Pt will need auth and likely transport at d/c. Will follow. SIGNATURE: Tami Patricio RN PATIENT NAME: Elizabeth Modi DATE: August 23, 2019 TIME: 3:18 PM PAGER/CONTACT #: [phone] Paulo Landis MD 08/23/2019 3:55 PM Addendum [...] labs Paulo Landis MD Infectious Disease Respiratory [place] Pager: [phone] August 23, 2019 Previous Version ISAC NAVARRO [...] have any questions, [place] [phone]. Age: [age] year old Allergies: ALLERGIES No [...] questions or concerns Mon-Fri 6a-5p please page [phone]. After 5pm and on Weekends and Holidays, please page [phone] if in ICU or [phone] if on RNF. Subjective SUBJECTIVE: Denies leg [...] 0659 08/24/19 0700 - 08/25/19 0659 Shift 5303-9150 0907-8868 2377-6934 24 Hour Total 7842-8661 3157-7213 9818-4266 24 Hour Total INTAKE IV 625 625 OR Crystalloid intake (mL) 250 250 Volume (mL) (lactated ringers infusion) 125 125 Volume (mL) (vancomycin iv piggyback 1.25 g in D5W 250 mL (VANCOCIN)) 250 250 Shift Total 625 625 OUTPUT Urine 695 485 3843 Void (ml) 456 779 2656 Blood 50 50 Estimated Blood loss 50 50 Shift Total 185 117 0778 Weight (kg) 85 85 85 85 85 [...] 3 g in NaCl 0.9% 100 mL MB+/ADD-[place] (UNASYN) 3 g INTRAVENOUS q 6 H [...] pharmacy if questions. MARTHA RYAN PHARMACIST Ext: [phone] Edy Paredes MD 08/24/2019 9:20 AM Signed Edy Paredes MD, MS, FACP, FIDSA Division of Infectious Diseses [address] [facility] [address] [place] [id number] Office: [phone] INFECTIOUS DISEASE CONSULT PROGRESS NOTE SERVICE DATE: [...] active ID issues, will sign off. SIGNATURE: dEy Paredes MD, MS, FACP, [facility] PATIENT NAME: Elizabeth Modi DATE: August 24, 2019 TIME: 9:16 AM PAGER/CONTACT #: [phone] Sue Bianchi DO 08/24/2019 5:16 PM Signed DEPARTMENT [facility] MEDICINE PROGRESS NOTE SERVICE DATE: 08/24/2019 SERVICE TIME: 12:40 PM Hospital Medicine/Primary Attending: Sue Bianchi DO NIGHT AND WEEKEND COVERAGE: After 7pm, please call cross cover pager #[phone] Subjective INTERVAL HPI: Patient seen and examined. [...] bowel sounds normally heard, no mass palpable MARKETING ENGINEER- cranial nerves 2 to 12 grossly intact, [...] 08/21/191914 vte non-pharmacologic prophylaxis - none indicated ([place], [place]) 08/21/191914 activity - mobilize patient ([place]) VTE Prophylaxis: VTE prophylaxis appropriate Disposition: Home with [facility] Plan of care discussed with: Provider, RN, Patient SIGNATURE: Sue Bianchi DO PATIENT NAME: Elizabeth Modi DATE: August 24, 2019 TIME:12:40 PM PAGER/CONTACT #: [phone] [phone] NADIR Cox/Serene 08/24/2019 1:07 PM Signed Occupational Therapy Evaluation SERVICE DATE: 08/24/2019 SERVICE TIME: 1133 to 1208 ROOM: [id number] Recommended Discharge Disposition: Acute Rehab Justification For [...] (ADL);General symptoms and signs-other Interventions Provided: Evaluation;Self Fpc Management (03218) $ Evaluation-Moderate (11534) Billed Units: 1 unit OT Evaluation Moderate [...] occupational performance: thyroid, HTN, DM, claudication Self Fpc Management (87941) Treatment Minutes: 10 1 unit Skilled Intervention(s): [...] lower extremity. 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 Patient agreeable to (more content not included)... Normal [facility] No Panel Information [facility] Vital Signs Date Time Vital Sign Value Performing Clinician Facility 10-16-2024 07:59-0400 Body height 167.[address] Diana Salmeron MD Work Phone: [facility] 10-16-2024 07:59-0400 Body mass index (BMI) [Ratio] 29 kg/m2 Dr. Diana Salmeron MD Work Phone: [facility] 10-16-2024 07:59-0400 Body weight 81.[address] Diana Salmeron MD Work Phone: [facility] 10-16-2024 07:59-0400 Diastolic blood pressure 74 mm[Hg] Dr. Diana Salmeron MD Work Phone: [facility] 10-16-2024 07:59-0400 Heart rate 64 /min Dr. Diana Salmeron MD Work Phone: [facility] 10-16-2024 07:59-0400 Respiratory rate 18 /min Dr. Diana Salmeron MD Work Phone: [facility] 10-16-2024 07:59-0400 Systolic blood pressure 131 mm[Hg] Dr. Diana Salmeron MD Work Phone: 2(891)874-737376 [place] [address] 10-16-2024 00:07-0400 Body temperature 97.8 [degF] Dr. Diana Salmeron MD Work Phone: 2(995)619-951176 [place] [address] 10-16-2024 00:07-0400 Diastolic blood pressure 76 mm[Hg] Dr. Diana Salmeron MD Work Phone: 6(455)167-630398 [address] 10-16-2024 00:07-0400 Heart rate 68 /min Dr. Diana Salmeron MD Work Phone: 0(824)544-571076 [place] [address] 10-16-2024 00:07-0400 Respiratory rate 16 /min Dr. Diana Salmeron MD Work Phone: 5(416)595-536076 [place] [address] 10-16-2024 00:07-0400 SaO2% (BldA) [Mass fraction] 97 % Dr. Diana Salmeron MD Work Phone: 5(411)293-386876 [place] [address] 10-16-2024 00:07-0400 Systolic blood pressure 148 mm[Hg] Dr. Diana Salmeron MD Work Phone: [facility] 10-15-2024 17:47-0400 Body mass index (BMI) [Ratio] 29.9 kg/m2 Dr. Diana Salmeron MD Work Phone: 7(115)068-686376 [place] [address] 10-15-2024 17:47-0400 Body weight [address] Diana Salmeron MD Work Phone: 9(301)668-231676 [place] [address] 10-15-2024 16:00-0400 Body height 167.[address] Diana Salmeron MD Work Phone: [facility] 10-01-2024 13:22-0400 Body height 167.6 cm Nikolai Connor PA-C Work Phone: [facility] Comment on above: After amputations per patient. 10-01-2024 13:22-0400 Body temperature 97.3 [degF] Nikolai Connor PA-C Work Phone: [facility] 10-01-2024 13:22-0400 Diastolic blood pressure 82 mm[Hg] Nikolai Connor PA-C Work Phone: [facility] Comment on above: Mario notified of blood pressure- pat ient aware to let staff where he resides know of his blood pressure. 10-01-2024 13:22-0400 Heart rate 62 /min Nikolai Connor PA-C Work Phone: [facility] 10-01-2024 13:22-0400 Respiratory rate 14 /min Nikolai Connor PA-C Work Phone: [facility] 10-01-2024 13:22-0400 SaO2% (BldA) [Mass fraction] 97 % Nikolai Connor PA-C Work Phone: [facility] 10-01-2024 13:22-0400 Systolic blood pressure 182 mm[Hg] Nikolai Connor PA-C Work Phone: [facility] Comment on above: Mario notified of blood pressure- pat ient aware to let staff where he resides know of his blood pressure. 01-11-2023 12:58-0400 Body temperature 97.4 [degF] Dr. Dexter Reyes Work Phone: [facility] 01-11-2023 12:58-0400 Diastolic blood pressure 65 mm[Hg] Dr. Dexter Reyes Work Phone: [facility] 01-11-2023 12:58-0400 Heart rate 66 /min Dr. Dexter Reyes Work Phone: [facility] 01-11-2023 12:58-0400 Respiratory rate 17 /min Dr. Dexter Reyes Work Phone: [facility] 01-11-2023 12:58-0400 Systolic blood pressure 113 mm[Hg] Dr. Dexter Reyes Work Phone: [facility] 12-17-2022 12:00-0400 Body temperature 98.8 [degF] Dr. Dexter Reyes Work Phone: 4(764)274-773984 [place] [address] 12-17-2022 12:00-0400 Diastolic blood pressure 68 mm[Hg] Dr. Dexter Reyes Work Phone: 4(969)162-155384 [place] [address] 12-17-2022 12:00-0400 Heart rate 60 /min Dr. Dexter Reyes Work Phone: 1(949)087-834344 [place] [address] 12-17-2022 12:00-0400 Inhaled oxygen flow rate 2 L/min Dr. Dexter Reyes Work Phone: 5(961)847-606944 [place] [address] 12-17-2022 12:00-0400 Respiratory rate 18 /min Dr. Dexter Reyes Work Phone: 4(111)438-859784 [place] [address] 12-17-2022 12:00-0400 SaO2% (BldA) [Mass fraction] 95 % Dr. Dexter Reyes Work Phone: 3(628)652-932284 [place] [address] 12-17-2022 12:00-0400 Systolic blood pressure 147 mm[Hg] Dr. Dexter Reyes Work Phone: 5(946)075-299474 [address] 12-17-2022 06:00-0400 Body mass index (BMI) [Ratio] 32.6 kg/m2 Dr. Dexter Reyes Work Phone: 4(371)414-520584 [place] [address] 12-17-2022 06:00-0400 Body weight 92.[address] Dexter Reyes Work Phone: 3(935)187-518984 [place] [address] 12-15-2022 20:05-0400 Inhaled oxygen concentration 4 % Dr. Dexter Reyes Work Phone: 1(159)696-238844 [place] [address] 12-15-2022 10:54-0400 Body height 167.[address] Dexter Reyes Work Phone: 1(062)391-824084 [place] [address] 09-01-2022 09:59-0400 Body temperature 97.7 [degF] Shana Delgado MD Work Phone: [facility] 09-01-2022 09:59-0400 Diastolic blood pressure 68 mm[Hg] Shana Delgado MD Work Phone: [facility] 09-01-2022 09:59-0400 Heart rate 66 /min Shana Delgado MD Work Phone: [facility] 09-01-2022 09:59-0400 Systolic blood pressure 135 mm[Hg] Shana Delgado MD Work Phone: [facility] 01-13-2022 13:09-0400 Heart rate 79 /min DR KARL BARRERA MD [address] 01-13-2022 11:36-0400 Body temperature 97.88 [degF] DR KARL BARRERA MD [address] [place] [address] 01-13-2022 11:36-0400 Diastolic Blood Pressure NBP [address] KARL BARRERA MD [address] 01-13-2022 11:36-0400 Heart rate 79 /min DR KARL BARRERA MD [address] 01-13-2022 11:36-0400 Mean blood pressure 79 mm[Hg] DR KARL BARRERA MD [address] 01-13-2022 11:36-0400 Reason For Taking VItal Signs DR KARL BARRERA MD [address] 01-13-2022 11:36-0400 Respiratory rate 18 /min DR KARL BARRERA MD [facility] 01-13-2022 11:36-0400 Systolic Blood Pressure NBP [address] KARL BARRERA MD [facility] 01-13-2022 08:42-0400 Heart rate 81 /min DR KARL BARRERA MD [address] 01-13-2022 08:42-0400 Heart rate 82 /min DR KARL BARRERA MD [address] [place] [address] 01-13-2022 07:06-0400 Body temperature 97.52 [degF] DR KARL BARRERA MD [address] [place] [address] 01-13-2022 07:06-0400 Diastolic Blood Pressure NBP [address] KARL BARRERA MD [address] [place] [address] 01-13-2022 07:06-0400 Mean blood pressure 79 mm[Hg] DR KARL BARRERA MD [address] [place] [address] 01-13-2022 07:06-0400 Reason For Taking VItal Signs DR KARL BARRERA MD [address] [place] [address] 01-13-2022 07:06-0400 Respiratory rate 18 /min DR KARL BARRERA MD [address] [place] [address] 01-13-2022 07:06-0400 Systolic Blood Pressure NBP [address] KARL BARRERA MD [address] [place] [address] 01-13-2022 04:52-0400 Body temperature 97.7 [degF] DR KARL BARRERA MD [address] [place] [address] 01-13-2022 04:52-0400 Diastolic Blood Pressure NBP [address] KARL BARRERA MD [address] [place] [address] 01-13-2022 04:52-0400 Mean blood pressure 83 mm[Hg] DR KARL BARRERA MD [address] [place] [address] 01-13-2022 04:52-0400 Reason For Taking VItal Signs DR KARL BARRERA MD [address] [place] [address] 01-13-2022 04:52-0400 Respiratory rate 18 /min DR KARL BARRERA MD [address] [place] [address] 01-13-2022 04:52-0400 Systolic Blood Pressure NBP [address] KARL BARRERA MD [address] [place] [address] 01-12-2022 16:59-0400 Heart rate 71 /min DR KARL BARRERA MD [address] [place] [address] 01-12-2022 09:02-0400 Heart rate 71 /min DR KARL BARRERA MD [address] [place] [address] 01-11-2022 04:44-0400 Diastolic blood pressure 79 mm[Hg] DR KARL BARRERA MD [address] [place] [address] 01-11-2022 04:44-0400 Mean blood pressure 110 mm[Hg] DR KARL BARRERA MD [address] [place] [address] 01-11-2022 04:44-0400 Systolic blood pressure 171 mm[Hg] DR KARL BARRERA MD [address] [place] [address] 01-11-2022 04:02-0400 Diastolic blood pressure 71 mm[Hg] DR KARL BARRERA MD [address] [place] [address] 01-11-2022 04:02-0400 Mean blood pressure 105 mm[Hg] DR KARL BARRERA MD [address] [place] [address] 01-11-2022 04:02-0400 Systolic blood pressure 173 mm[Hg] DR KARL BARRERA MD [address] [place] [address] 01-10-2022 02:13-0400 Diastolic blood pressure 73 mm[Hg] DR KARL BARRERA MD [address] [place] [address] 01-10-2022 02:13-0400 Systolic blood pressure 179 mm[Hg] DR KARL BARRERA MD [address] [place] [address] 01-10-2022 01:27-0400 Signs/Symptoms Transfusion Reaction DR KARL BARRERA MD [address] [place] [address] 01-10-2022 01:27-0400 Transfusion Documentation Ended/Paper DR KARL BARRERA MD [address] [place] [address] 01-10-2022 00:56-0400 Signs/Symptoms Transfusion Reaction DR KARL BARRERA MD [address] [place] [address] 01-10-2022 00:27-0400 Heart rate 63 /min DR KARL BARRERA MD [address] [place] [address] 01-10-2022 00:11-0400 Signs/Symptoms Transfusion Reaction No DR KARL BARRERA MD [address] [place] [address] 01-10-2022 00:11-0400 Heart rate 64 /min DR KARL BARRERA MD [address] [place] [address] 01-09-2022 22:36-0400 Transfusion Documentation Started/Paper DR KARL BARRERA MD [address] [place] [address] 01-06-2022 09:26-0400 Diastolic blood pressure 45 mm[Hg] DR KARL BARRERA MD [address] [place] [address] 01-06-2022 09:26-0400 Mean blood pressure 64 mm[Hg] DR KARL BARRERA MD [address] [place] [address] 01-06-2022 09:26-0400 Systolic blood pressure 103 mm[Hg] DR KARL BARRERA MD [address] [place] [address] 01-06-2022 08:38-0400 Diastolic blood pressure 50 mm[Hg] DR KARL BARRERA MD [address] [place] [address] 01-06-2022 08:38-0400 Mean blood pressure 69 mm[Hg] DR KARL BARRERA MD [address] [place] [address] 01-06-2022 08:38-0400 Systolic blood pressure 107 mm[Hg] DR KARL BARRERA MD [address] [place] [address] 01-06-2022 07:40-0400 Diastolic blood pressure 45 mm[Hg] DR KARL BARRERA MD [address] [place] [address] 01-06-2022 07:40-0400 Mean blood pressure 66 mm[Hg] DR KARL BARRERA MD [address] [place] [address] 01-06-2022 07:40-0400 Systolic blood pressure 113 mm[Hg] DR KARL BARRERA MD [address] [place] [address] 01-05-2022 20:12-0400 SaO2% (BldA) [Mass fraction] 98.4 % DR KARL BARRERA MD [facility] 01-05-2022 18:47-0400 SaO2% (BldA) [Mass fraction] 97.6 % DR KARL BARRERA MD [facility] 01-05-2022 17:13-0400 SaO2% (BldA) [Mass fraction] 97.7 % DR KARL BARRERA MD [facility] 01-05-2022 12:30-0400 Body temperature 98.98 [degF] DR KARL BARRERA MD [address] [place] [address] 01-05-2022 12:25-0400 Body temperature 99 [degF] DR KARL BARRERA MD [address] [place] [address] 01-05-2022 12:20-0400 Body temperature 99.07 [degF] DR KARL BARRERA MD [address] [place] [address] 01-05-2022 12:20-0400 Body temperature 98.51 [degF] DR KARL BARRERA MD [address] [place] [address] 01-05-2022 12:15-0400 Body temperature 98.6 [degF] DR KARL BARRERA MD [address] [place] [address] 01-05-2022 12:10-0400 Body temperature 98.67 [degF] DR KARL BARRERA MD [address] [place] [address] 01-05-2022 11:54-0400 SaO2% (BldA) [Mass fraction] 98.2 % DR KARL BARRERA MD [facility] 01-05-2022 11:19-0400 SaO2% (BldA) [Mass fraction] 99.4 % DR KARL BARRERA MD [facility] 01-05-2022 10:44-0400 SaO2% (BldA) [Mass fraction] 99.4 % DR KARL BARRERA MD [facility] 01-03-2022 23:07-0400 Mean blood pressure 83 mm[Hg] DR KARL BARRERA MD [address] [place] [address] 01-03-2022 12:05-0400 Body height [address] KARL BARRERA MD [address] [place] [address] 01-03-2022 12:05-0400 Body weight 81.[address] KARL BARRERA MD [address] [place] [address] 01-03-2022 12:05-0400 Body weight 35.28 kg/m2 DR KARL BARRERA MD [address] [place] [address] 01-03-2022 04:54-0400 Body weight 81.[address] KARL BARRERA MD [address] [place] [address] 12-31-2021 03:38-0400 Heart rate 80 /min DR KARL BARRERA MD [address] 12-30-2021 05:08-0400 Body weight 103.[address] KARL BARRERA MD [address] 02-09-2021 12:00-0400 Diastolic blood pressure 53 mm[Hg] Ammy Vicente MD Work Phone: [facility] Work Phone: 02-09-2021 12:00-0400 Heart rate 51 /min Ammy Vicente MD Work Phone: [facility] Work Phone: 02-09-2021 12:00-0400 SaO2% (BldA) [...] 74.39 kg Ammy Vicente MD Work Phone: [facility] Work Phone: Encounters Encounter Date Encounter Type Care Provider Facility Start: 02-11-2025 ambulatory Victor M DAVID Facility:[facility] Start: 02-11-2025 Registered Referred Victor M Rojas MD -[facility] Start: 02-04-2025 ambulatory Victor M DAVID Facility:[facility] Start: 02-04-2025 Registered Referred Victor M Rojas MD -[facility] Start: 01-28-2025 End: 01-28-[address] Victor M Rojas MD -[facility] [place] Work Phone: Start: 01-28-2025 End: 01-28-2025 ambulatory Victor M Rojas OLS Facility:[facility] Start: 01-28-2025 [facility]: 01-22-2025 ambulatory Victor M matute OLS Facility:[facility] Start: 01-22-2025 [facility]: 01-20-2025 [facility]ulatory [facility] Start: 01-20-2025 [facility] Start: 01-14-2025 End: 01-14-2025 ambulatory GAYLA CLINE Facility:[id number] Start: 01-14-2025 End: 01-14-2025 Patient encounter procedure Gayla Cline MD Work Phone: Urology Comment on above: Gross hematuria (Margarita dariel Dx); Left renal mass Start: 12-24-2024 End: 12-24-[address] Diana Salmeron MD Work Phone: [facility] Start: 12-24-2024 End: 12-24-2024 Patient encounter procedure Christina Whipple NP-C -[facility] [place] Work Phone: Start: 12-18-2024 ambulatory Victor M matute OLS Facility:[facility] Start: 12-18-2024 [facility] Start: 12-03-2024 End: 12-03-[address] Diana Salmeron MD Work Phone: [facility] Start: 12-03-2024 End: 12-03-[address] Victor M Rojas MD -[facility] [place] Work Phone: Start: 11-20-2024 ambulatory Victor M matute OLS Facility:[facility] Start: 11-20-2024 [facility] Start: 11-07-2024 End: 11-07-[address] Diana Salmeron MD Work Phone: -[facility] Start: 11-07-2024 End: 11-07-2024 Departed Referred Christina Johanseneliane MULTIPLE TUBE WINDING MACHINE OPERATOR-C -[facility] Start: 11-07-2024 Registered Referred Christina Kauffman heribertoeliane MULTIPLE TUBE WINDING MACHINE OPERATOR- -[facility] Start: 11-07-2024 End: 11-07-2024 ambulatory Christina DAVID Facility:[facility] Start: 10-23-2024 End: 10-23-[address] Diana Salmeron MD Work Phone: [facility] Work Phone: Start: 10-23-2024 End: 10-23-2024 Departed Referred Victor M Rojas MD -[facility] Start: 10-23-2024 End: 10-23-2024 ambulatory Victor M DAVID Facility:[facility] Start: 10-16-2024 End: 10-16-2024 Patient encounter procedure Lauren GARLAND -[facility] Work Phone: Start: 10-16-2024 End: 10-16-2024 ambulatory Diana Salmeron Facility:[facility] Start: 10-15-2024 End: 10-16-2024 Emergency department patient visit Dr. Diana Salmeron MD Work Phone: -Emergency Department Work Phone: Start: 10-04-2024 End: 12-04-2024 Follow-up encounter Nikolai Connor PA-C Work Phone: Urology Start: 10-01-2024 End: 10-04-2024 Telephone encounter Nikolai Connor PA-C Work Phone: Urology Start: 10-01-2024 End: 10-01-2024 ambulatory NIKOLAI CONNOR Facility:[facility] Start: 10-01-2024 End: 10-01-2024 Patient encounter procedure Nikolai Connor PA-C Work Phone: Urology Comment on above: Gross hematuria (Margarita dariel Dx); Screening for genitourinary condition Start: 09-24-2024 End: 09-24-[address] Diana Salmeron MD Work Phone: [facility] Work Phone: Start: 09-24-2024 End: 09-24-[address] Victor M Rojas MD -[facility] [place] Work Phone: Start: 09-18-2024 End: 09-18-[address] Diana Salmeron MD Work Phone: [facility] Work Phone: Start: 09-18-2024 End: 09-18-2024 Departed Referred Victor M Rojas MD -[facility] Start: 09-18-2024 Registered Referred Victor M Rojas MD -[facility] Start: 09-18-2024 End: 09-18-2024 ambulatory Victor M DAVID Facility:[facility] Start: 09-06-2024 End: 09-06-2024 Patient encounter procedure Kacie GARLAND -[facility] Work Phone: Start: 09-06-2024 End: 09-06-2024 ambulatory Diana Salmeron Facility:[facility] Start: 09-05-2024 End: 09-05-2024 ambulatory Christina Whipple NP Facility:[facility] Start: 09-05-2024 End: 09-05-2024 Patient encounter procedure Christina Whipple MULTIPLE TUBE WINDING MACHINE OPERATOR- -[facility] [place] Work Phone: Start: 09-03-2024 End: 09-03-2024 ambulatory Christina Whipple NP Facility:[facility] Start: 09-03-2024 End: 09-03-2024 Patient encounter procedure Christina Whipple MULTIPLE TUBE WINDING MACHINE OPERATOR- -[facility] [place] Work Phone: Start: 08-21-2024 End: 08-21-[address] Diana Salmeron MD Work Phone: [facility] Work Phone: Start: 08-21-2024 End: 08-21-2024 [facility] Start: 08-21-2024 End: 08-21-2024 ambulatory Victor M Rojas OLS Facility:[facility] Start: 08-01-2024 ambulatory Victor M matute OLS Facility:[facility] Start: 08-01-2024 [facility] Start: 07-30-2024 ambulatory Butros Latouf Facility: [facility] Start: 07-24-2024 ambulatory Victor M matute OLS Facility:[facility] Start: 07-24-2024 [facility] Start: 07-23-2024 End: 07-23-2024 ambulatory Victor M Rojas Facility:[facility] Start: 07-23-2024 End: 07-23-[address] Victor M Rojas MD -[facility] [place] Work Phone: Start: 07-05-2024 End: 07-05-2024 ambulatory Christina Whipple NP Facility:[facility] Start: 07-05-2024 End: 07-05-2024 Patient encounter procedure Christina Whipple MULTIPLE TUBE WINDING MACHINE OPERATOR-C -[facility] [place] Work Phone: Start: 07-02-2024 End: 07-02-2024 ambulatory Nikolai Connor PA-C Work Phone: Urology Comment on above: CT urogram results Start: 07-02-2024 End: 07-02-2024 E-mail encounter from caregiver Nikolai Connor PA-C Work Phone: Urology Start: 06-28-2024 End: 06-28-2024 ambulatory NIKOLAI CONNOR Facility:[facility] Start: 06-28-2024 End: 06-28-2024 Subsequent hospital visit by physician [facility] Work Phone: Cat Scan Comment on above: Gross hematuria [R31 .0] Start: 06-27-2024 ambulatory Victor M DAVID Facility:[facility] Start: 06-27-2024 Registered Referred Victor M Rojas MD [facility] Start: 06-21-2024 End: 07-09-2024 Telephone encounter Nikolai Connor PA-C Work Phone: Urology Comment on above: Results Start: 06-20-2024 ambulatory Victor M DAVID Facility:[facility] Start: 06-20-2024 Registered Referred Victor M Rojas MD [facility] Start: 06-18-2024 End: 06-18-2024 ambulatory NIKOLAI CONNOR Facility:[facility] Start: 06-18-2024 End: 06-18-2024 Patient encounter procedure Nikolai Connor PA-C Work Phone: Urology Comment on above: Screening for genito urinary condition (Primary Dx); Gross hematuria; Left renal mass Start: 06-17-2024 End: 06-17-2024 Patient encounter procedure Christina Whipple NP- -[facility] [place] Work Phone: Start: 06-17-2024 End: 06-17-2024 ambulatory Christina Whipple NP Facility:[facility] Start: 06-17-2024 Registered Referred Victor M Rojas MD [facility] Start: 06-06-2024 End: 06-06-2024 Patient encounter procedure Kacie GARLAND -[facility] Work Phone: Start: 06-06-2024 End: 06-06-2024 ambulatory Butros Latouf Facility:[facility] Start: 05-21-2024 End: 05-22-2024 ambulatory Butros Latouf Facility:[facility] Start: 05-08-2024 End: 05-08-2024 ambulatory Christina Whipple MULTIPLE TUBE WINDING MACHINE OPERATOR Facility:[facility] Start: 04-24-2024 End: 04-24-2024 ambulatory Butros Latouf Facility:[facility] Start: 04-04-2024 End: 04-04-2024 ambulatory Butros Latouf Facility:[facility] Start: 03-26-2024 End: 03-26-2024 ambulatory Victor M Rojas Facility:[facility] Start: 03-25-2024 ambulatory Eric Ulises Facility: [facility] Start: 03-20-2024 ambulatory Butros Latouf Facility: [facility] Start: 03-04-2024 End: 03-04-2024 ambulatory Butros Latouf Facility:[facility] Start: 02-28-2024 End: 02-28-2024 ambulatory Butros Latouf Facility:[facility] Start: 02-22-2024 End: 02-22-2024 ambulatory Butros Latouf Facility:[facility] Start: 01-08-2024 End: 01-08-[address] KENNY CHUA MD Facility:[facility] Start: 04-13-2023 Emergency department patient visit VALENTIN DO BISMARK [facility] Start: 03-27-2023 Telephone encounter Urology (History ) Urology Start: 02-08-2023 End: 02-08-[address] Dexter Reyes Work Phone: [facility] Work Phone: Start: 02-08-2023 End: 02-08-[address] Dexter Reyes Work Phone: [facility] Work Phone: Start: 01-30-2023 End: 01-30-[address] Dexter Reyes Work Phone: [facility] Work Phone: Start: 01-30-2023 End: 01-30-[address] Dexter Reyes Work Phone: [facility] Work Phone: Start: 01-11-2023 End: 01-11-[address] Dexter Reyes Work Phone: [facility] Work Phone: Start: 12-17-2022 Non-patient / Non-visit Dr. Robel Reyes Work Phone: [facility] Work Phone: Start: 12-16-2022 Non-patient / Non-visit Dr. Robel Reyes Work Phone: [facility] Start: 12-16-2022 Non-patient / Non-visit Dr. Robel Reyes Work Phone: [facility] Work Phone: Start: 12-15-2022 Non-patient / Non-visit Dr. Robel Reyes Work Phone: [facility] Start: 12-15-2022 Non-patient / Non-visit Dr. Robel Reyes Work Phone: [facility] Start: 12-15-2022 Non-patient / Non-visit Dr. Robel Reyes Work Phone: [facility] Work Phone: Start: 12-14-2022 End: 12-17-2022 Evaluation and management of inpatient Dr. Dexter [facility] Work Phone: Start: 12-14-2022 End: 01-08-2024 Pre-admission assessment DR KENNY CHUA MD [facility] Start: 12-14-2022 Non-patient / Non-visit Dr. 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; Vitamin D deficiency Start: 01-17-2022 End: 01-17-2022 Patient encounter procedure HUNTER FALCON [employer]IPMENT SALES ENGINEER-RN MEDICATION [facility] Start: 12-30-2021 End: 01-13-2022 Evaluation and management of inpatient DR KARL BARRERA MD [facility] Start: 11-23-2021 End: 11-23-2021 Subsequent hospital visit by physician Fer Weinstein MD Work Phone: [facility] ELICIA SAEZ Comment on above: CHRONIC HEADACHES Start: 02-09-2021 End: 02-09-2021 Subsequent hospital visit by physician Ammy Vicente MD Work Phone: [facility] General Surgery Comment on above: Arrived Start: 11-13-2020 ambulatory [facility] Facility:[facility] Start: 09-09-2020 ambulatory [facility] Facility:[facility] Procedures Date Procedure Procedure Detail Performing Clinician Start: 02-11-2025 Serum inorganic phosphate measurement Dr. Diana Salmeron MD Work Phone: Start: 02-04-2025 Serum inorganic phosphate measurement Dr. Diana Salmeron MD Work Phone: Start: 01-28-[address] Serum inorganic phosphate measurement Dr. [...] on above: Performed By: #### MAG #### [place] [id number] Start: 06-19-[address] KARL BARRERA MD [...] DTaP,Tdap,Td Vaccine (2 - Td or Tdap) [facility] Start: 02-17-2025 Influenza vaccination [facility] Start: 01-14-2025 End: 01-14-2025 Patient encounter procedure 01/14/2025 9:15 AM EDT Office Visit Urology [address] [facility] [place] [id number] Gayla Cline MD [address] [place], [place] [id number] WILL BE ON Dr.Mooney LUCINA referral for cysto Urology Comment on above: WILL BE ON Dr.Mooney LUCINA referral for c ysto Start: 11-08-2024 End: 11-08-2024 Patient encounter procedure 11/08/2024 8:15 AM EDT Office Visit Urology [address] [place] [address] Gayla Cline MD [address] [place], [place] [phone] referral for cysto Urology Comment on above: referral for cysto Start: 10-15-2024 End: 10-15-2024 [facility] Start: 07-02-2024 Cystourethroscopy CYSTO.PANENDO Procedures Routine Gross hematuria Expected: 07/02/2024 (Approximate) [facility] Comment on above: Expected: 07/02/2024 (Approximate) Start: 06-28-2024 End: 06-28-2024 Patient encounter procedure 06/28/2024 1:20 PM EST Appointment Cat Scan [address] [place], [place] [id number] Gross hematuria [R31.0] Cat Scan Comment on above: Gross hematuria [R31.0] Start: 06-25-2024 End: 09-24-2024 CREATININE BLD CREATININE BLD Lab Routine Screening for genitourinary condition Gross hematuria Expected: 06/25/2024 (Approximate), Expires: 09/24/2024 [facility] Comment on above: Expected: 06/25/2024 (Approximate), Expi res: 09/24/2024 Start: 06-25-2024 End: 07-19-2025 CT Kidney WO and W contrast IV CT UROGRAM WO/W IVCON Radiology Routine Gross hematuria Expected: 06/25/2024, Expires: 07/19/2025 [facility] Comment on above: Expected: 06/25/2024, Expires: Start: 06-19-2024 Advance Directive Discussion Advance Directive Discussion [facility] Start: 06-19-2024 Medicare Advantage Annual Wellness Visit Medicare Advantage Annual Wellness Visit [facility] Start: 02-18-2024 Covid-19 Vaccine () Covid-19 Vaccine () [facility] Start: 02-18-2024 Influenza vaccination Influenza Vaccine (#1) [facility] Start: 09-02-2023 Glaucoma screening Dilated Retinal Exam [facility] Start: 09-02-2023 Hepatitis C antibody, confirmatory test DILATED RETINAL EXAM [facility] Start: 08-13-2023 Hemoglobin A1c measurement HbA1C [facility] Start: 08-13-2023 Hemoglobin A1c/Hemoglobin.total in Blood HbA1C [facility] Start: 06-19-2023 Advance Directive Discussion Advance Directive Discussion [facility] Start: 02-17-2023 Influenza vaccination Influenza Vaccine (#1) [facility] Start: 02-15-2023 Hepatitis B screening URINE ALBUMIN:CREATININE RATIO [facility] Start: 12-17-2022 Patient discharge [facility] Start: 12-16-2022 Dietary regime [facility] Start: 12-16-2022 Catheterization of vein [facility] Start: 12-16-2022 Vital signs measurements [facility] Start: 12-15-2022 [facility] Start: 12-15-2022 Consultation [facility] Start: 12-14-2022 Admission procedure [facility] Start: 12-14-2022 Wound care [facility] Start: 12-14-2022 Consultation for treatment [facility] Start: 12-14-2022 Catheterization of vein [facility] Start: 12-14-2022 Following clinical pathway protocol [facility] Start: 12-14-2022 Admission procedure [facility] Start: 12-14-2022 Assessment of risk of venous thromboembolism [facility] Start: 12-14-2022 Care regimes management [facility] Start: 12-14-2022 Insertion of catheter into peripheral vein [facility] Start: 12-14-2022 Providing care according to standard [facility] Start: 12-14-2022 Provision of activity privileges [facility] Start: 12-14-2022 Fall prevention [facility] Start: 12-14-2022 Introduction of urinary catheter [facility] Start: 12-14-2022 Oxygen therapy [facility] Start: 12-14-2022 Referral to occupational therapist [facility] Start: 12-14-2022 Referral to service [facility] Start: 12-14-2022 Measuring intake and output [facility] Start: 12-14-2022 Referral to gastroenterology service [facility] Start: 12-14-2022 Referral to general surgeon [facility] Start: 12-14-2022 Inhalation therapy procedure [facility] Start: 12-14-2022 Patient referral to dietitian [facility] Start: 12-14-2022 End: 12-14-2022 [facility] Start: 10-11-2022 Hemoglobin A1c/Hemoglobin.total in Blood HBA1C [facility] Start: 08-07-2022 Covid-19 Vaccine (6 - Moderna series) Covid-19 Vaccine (6 - Moderna series) [facility] Start: 06-19-2022 ADVANCE DIRECTIVE DISCUSSION ADVANCE DIRECTIVE DISCUSSION [facility] Start: 06-19-2022 DEPRESSION ASSESSMENT DEPRESSION ASSESSMENT [facility] Start: 02-17-2022 Influenza vaccination INFLUENZA (Season Ended) [facility] Start: 06-19-2021 ADVANCE DIRECTIVE DISCUSSION ADVANCE DIRECTIVE DISCUSSION [facility] Start: 03-17-2021 End: 03-17-2021 Patient encounter procedure 03/17/2021 Office Visit Ophthalmology Ammy Vicente MD [address] [place] [address] [phone] [facility] Start: 02-17-2021 Influenza vaccination Flu vaccine (#1) [employer] Work Phone: Start: 02-17-2021 End: 02-17-2021 Patient encounter procedure 02/17/2021 Office Visit Ophthalmology Ammy Vicente MD [address] [place], [place] [phone] [facility] Start: 02-10-2021 End: 02-10-2021 Patient encounter procedure 02/10/2021 Office Visit Ophthalmology Ammy Vicente MD [address] [place] [address] [phone] [facility] Start: 08-15-2020 Hemoglobin A1c/Hemoglobin.total in Blood HBA1C [facility] Start: 2016 RSV Vaccine (1 - 1-dose 75+ series) RSV Vaccine (1 - 1-dose 75+ series) [facility] Start: 2006 Pneumococcal 65+ years Vaccine (1 of 1 - PPSV23) Pneumococcal 65+ years Vaccine (1 of 1 - PPSV23) [facility] Work Phone: Start: 2001 Hepatitis B Vaccine (1 of 3 - Risk 3-dose series) Hepatitis B Vaccine (1 of 3 - Risk 3-dose series) [facility] Start: 1991 Shingles Vaccine (1 of 2) Shingles Vaccine (1 of 2) [facility] Work Phone: Start: 1991 SHINGRIX VACCINE (1 of 2) SHINGRIX VACCINE (1 of 2) [facility] Start: 1960 DTaP/Tdap/Td vaccine (1 - Tdap) DTaP/Tdap/Td vaccine (1 - Tdap) [facility] Work Phone: Start: 1960 Pneumococcal Vaccine: 50+ (1 of 2 - PCV) Pneumococcal Vaccine: 50+ (1 of 2 - PCV) [facility] Start: 1960 Urine microalbumin profile [facility] Start: 1959 ANNUAL PCP TEAM CHRONIC DISEASE VISIT ANNUAL PCP TEAM CHRONIC DISEASE VISIT [facility] Start: 1959 Anxiety Screening Anxiety Screening [facility] Start: 1959 BP CONTROLLED (<130/80) BP CONTROLLED (<130/80) [facility] Start: 1959 Depression Screening Depression Screening [facility] Start: 1959 Hepatitis B surface antibody level LDL CHOLESTEROL [facility] Start: 1953 Adult depression screening assessment DEPRESSION SCREENING [facility] Start: 1953 COVID-19 Vaccine (1) COVID-19 Vaccine (1) [facility] Work Phone: Start: 1951 3 comp foot exam completed DIABETIC FOOT EXAM [facility] Start: 1951 Diabetic foot examination Diabetic Foot Exam [facility] Start: 1951 Hepatitis B screening URINE ALBUMIN:CREATININE RATIO [facility] Start: 1951 Hepatitis C antibody, confirmatory test DILATED RETINAL EXAM [facility] Start: 1951 Lipid panel Lipid screen [facility] Work Phone: Start: 1947 Pneumococcal Vaccine: 65+ (1 - PCV) Pneumococcal Vaccine: 65+ (1 - PCV) [facility] Start: 1947 PNEUMOCOCCAL: 65+ (1 - PCV) PNEUMOCOCCAL: 65+ (1 - PCV) [facility] Start: 1946 COVID-19 VACCINE (#1) COVID-19 VACCINE (#1) [facility] Start: 1941 Creatinine measurement Creatinine monitoring [facility] Work Phone: Start: 1941 Hepatitis C screening Hepatitis C screen [facility] Work Phone: Start: 1941 Potassium monitoring Potassium monitoring [facility] Work Phone: Start: 1941 Thyroid stimulating hormone measurement TSH testing [facility] Work Phone: Bacteria identified in Urine by Culture [facility] Comment on above: Ordered: 06/18/2024 Bacteria identified in Urine by Culture BACTERIAL CULTURE, URINE Microbiology Routine Gross hematuria 10/01/2024 3:36 PM EDT [facility] Blood glucose - POCT [facility] Work Phone: Comment on above: As Needed until discontinued starting End: 02-09-2021 Creatinine [Mass/volume] in Serum or Plasma Creatinine, serum Lab STAT One Time for 1 Occurrences starting 02/09/2021 until 02/09/2021 [employer] Work Phone: Comment on above: One Time for 1 Occurrences starting 01/18 until 02/09/2021 CT Kidney WO and W contrast IV CT UROGRAM WO/W IVCON Radiology Routine Gross hematuria 06/28/2024 2:26 PM EST [facility] Work Phone: End: 11-03-2025 CT Kidney WO and W contrast IV CT UROGRAM WO/W IVCON Radiology Routine Gross hematuria 1 Occurrences starting 10/04/2024 until 11/03/2025 [facility] Work Phone: Comment on above: 1 Occurrences starting 10/04/2024 until 11/03/2025 Cystourethroscopy CYSTO.PANENDO Procedures Routine Gross hematuria Ordered: 10/01/2024 [facility] Comment on above: Ordered: 10/01/2024 CYTOLOGY NON-CAN PATCHER [facility] Comment on above: Ordered: 06/18/2024 End: 02-09-2021 Intermittent pulse oximetry Pulse Oximetry Spot Check Respiratory Care Routine One Time for 1 Occurrences starting 02/09/2021 until 02/09/2021 [employer] Work Phone: Comment on above: One Time for 1 Occurrences starting 01/18 until 02/09/2021 Nasal Cannula Oxygen Nasal Cannu la Oxygen Respiratory Care Routine As Needed until discontinued starting 02/09/2021 [employer] Work Phone: Comment on above: As Needed until discontinued starting Nonrebreather mask oxygen Nonreb reather mask oxygen Respiratory Care Routine As Needed until discontinued starting 02/09/2021 [employer] Work Phone: Comment on above: As Needed until discontinued starting Oxygen therapy [[facility] Data Set] [employer] Work Phone: Comment on above: Daily until discontinued starting 2020 As Needed until disc ontinued starting 02/09/2021 Patient Education ED Eye Contusi on ED Head Injury (Adult) ED Skin Tear (Skin Avulsion) [facility] Work Phone: Patient referral [facility] Work Phone: POST VOID RESIDUAL POST VOID RES IDUAL Procedures Routine Gross hematuria Screening for genitourinary condition Ordered: 10/01/2024 [facility] Work Phone: Comment on above: Ordered: 10/01/2024 End: 02-09-2021 Potassium w/ Reflex to Magnesium Potassium w/ Reflex to Magnesium Lab Routine One Time for 1 Occurrences starting 02/09/2021 until 02/09/2021 [employer] Work Phone: Comment on above: One Time for 1 Occurrences starting 01/18 until 02/09/2021 End: 02-09-2021 , urine POCT , urine POCT Point of Care Testing Routine One Time for 1 Occurrences starting 02/09/2021 until 02/09/2021 [employer] Work Phone: Comment on above: One Time for 1 Occurrences starting 01/18 until 02/09/2021 End: 02-09-2021 Protime-INR Protime-INR Lab STAT One Time for 1 Occurrences starting 02/09/2021 until 02/09/2021 [employer] Work Phone: Comment on above: One Time for 1 Occurrences starting 01/18 until 02/09/2021 Spirometry panel Incentive arthur metry Respiratory Care Routine Q1H PRN until discontinued starting 02/09/2021 [employer] Work Phone: Comment on above: Q1H PRN until discontinued starting 01/18 UA DIP, URINE (POC) UA DIP, URIN E (POC) Lab Routine Screening for genitourinary condition Ordered: 06/18/2024 [facility] Work Phone: Comment on above: Ordered: 06/18/2024 Immunizations Immunization Date Immunization Notes Care Provider [facility] 10-15-2024 tetanus toxoid, reduced diphtheria toxoid, and acellular pertussis vaccine, adsorbed Dr. Diana Salmeron MD Work Phone: [facility] 03-19-2022 influenza virus vaccine, unspecified formulation Urology (History) [facility] 10-25-2021 Covid (Pfizer) Dr. Dexter Reyes Work Phone: [facility] 05-21-2021 influenza virus vaccine, unspecified formulation DR KARL BARRERA MD [facility] 05-21-2021 SARS-CoV-2 (COVID-19 ) mRNA-[address] KARL BARRERA MD [facility] 03-10-2021 influenza virus vaccine, unspecified formulation DR KARL BARRERA MD [facility] 10-13-2020 SARS-CoV-2 (COVID-19 ) mRNA-[address] KARL BARRERA MD [facility] Comment on above: Result Comment: 2021: TPV3 09-15-2020 SARS-CoV-2 (COVID-19 ) mRNA-[address] KARL BARRERA MD [facility] Comment on above: Result Comment: 2021: TPV3 03-22-2020 influenza virus vaccine, unspecified formulation DR KARL BARRERA MD [facility] 02-18-2020 influenza virus vaccine, unspecified formulation DR KARL BARRERA MD [facility] 03-18-2019 influenza, injectabl e, quadrivalent, preservative free Dr. Diana Salmeron MD Work Phone: [facility] 03-18-2019 influenza, seasonal, injectable Dr. Dexter Reyes Work Phone: [facility] 03-04-2019 influenza virus vaccine, unspecified formulation DR KARL BARRERA MD [facility] 02-22-2017 influenza virus vaccine, unspecified formulation DR KARL BARRERA MD [facility] Payers Date Payer Category Payer Medicare (Managed Care) [facility] MEDICARE [id number] 2024 Self-pay [id number] 2020 Medicare [id number]. [id number] 2019 Private Health Insurance [id number]. [id number] 2019 Medicaid [id number] [id number]. [id number] 2019 Medicaid [id number] 2015 Medicare [facility] [id number] 2006 Medicare [id number] [id number]. [id number] 2006 Medicare [id number] 1941 Unknown [id number] 2.16.840.1.719269.3.579.2. 594 1941 Unknown [id number] 2.16.840.1.907631.3.579.2. 594 1941 Unknown [id number] 2.16.840.1.945177.3.579.2. 594 1941 Unknown [id number] 2.16.840.1.278138.3.579.2. 627 1941 Unknown [id number] 2.16.840.1.071416.3.579.2. 651 Medicare [id number] Unknown [id number] 2.16.840.1.959892.3.579.2. 462 Unknown [id number] 2.16.840.1.920852.3.579.2. 462 Unknown [id number] 2.16.840.1.416900.3.579.2. 462 Unknown [id number] 2..840.1.751540.3.579.2. 462 Unknown [id number] 2.840.1.175025.3.579.2. 462 Unknown [id number] 2.840.1.347392.3.579.2. 462 Unknown [id number] 2.16.840.1.604281.3.579.2. 462 Unknown [id number] 2.16.840.1.201282.3.579.2. 462 Unknown [id number] 2..840.1.837439.3.579.2. 462 Unknown [id number] 2.840.1.235573.3.579.2. 462 Unknown [id number] 2.16.840.1.258235.3.579.2. 462 Unknown [id number] 2.16.840.1.269814.3.579.2. 462 Unknown [id number] 2.16.840.1.445964.3.579.2. 462 Unknown [id number] 2.16.840.1.753513.3.579.2. 462 Unknown [id number] 2.16.840.1.420709.3.579.2. 462 Unknown [id number] 2.16.840.1.287322.3.579.2. 462 Unknown [id number] 2.16.840.1.287646.3.579.2. 462 Unknown [id number] 2.16.840.1.380141.3.579.2. 462 Unknown [id number] 2.16.840.1.173561.3.579.2. 462 Unknown [id number] 2.16.840.1.119621.3.579.2. 462 Unknown [id number] 2.16.840.1.417601.3.579.2. 462 Unknown [id number] 2.16.840.1.878596.3.579.2. 462 Unknown [id number] 2.16.840.1.004232.3.579.2. 462 Unknown [id number] 2.16.840.1.975623.3.579.2. 462 Unknown [id number] 2.16.840.1.133704.3.579.2. 462 Unknown [id number] 2.16.840.1.431249.3.579.2. 462 Unknown [id number] 2.16.840.1.530772.3.579.2. 462 Unknown [id number] 2.16.840.1.225923.3.579.2. 462 Unknown [id number] 2.16.840.1.010163.3.579.2. 462 Unknown [id number] 2.16.840.1.599129.3.579.2. 462 Unknown [id number] 2.16.840.1.269521.3.579.2. 462 Unknown [id number] 2.16.840.1.859071.3.579.2. 462 Unknown [id number] 2.16.840.1.413542.3.579.2. 462 Unknown [id number] 2.16.840.1.698963.3.579.2. 462 Unknown [id number] 2.16.840.1.305712.3.579.2. 462 Unknown [id number] 2.16.840.1.496412.3.579.2. 462 Unknown [id number] 2.16.840.1.170854.3.579.2. 462 Unknown [id number] 2.16.840.1.677423.3.579.2. 462 Unknown [id number] 2.16.840.1.327286.3.579.2. 462 Unknown [id number] 2.16.840.1.882090.3.579.2. 462 Unknown [id number] 2.16.840.1.518089.3.579.2. 462 Social History Date Type Detail Facility Start: 02-09-2021 End: 10-15-2024 Tobacco smoking status ORIS Former smoker [facility] Start: 02-09-2021 End: 01-14-2025 Alcohol intake Current drinker of alcohol (finding) [facility] Work Phone: Start: 02-02-2021 Alcohol Comment occassional ETOH use, not on a daily basis [employer] Work Phone: Start: 1940 Sex Assigned At Not on file [facility] Work Phone: Exposure to SARS-CoV -2 (event) Not sure [facility] Start: 12-14-2022 Tobacco smoking status [facility] Tobacco smoking consumption unknown [facility] Start: 05-15-2020 History SDOH Alcohol Frequency 2 [facility] Start: 05-15-2020 History SDOH Alcohol Std Drinks 1 [facility] Start: 12-10-2019 History SDOH Financial 4 [facility] Start: 1940 Sex Assigned At Male [facility] Start: 01-08-1960 End: 01-07-1990 History of tobacco use Current smoker [facility] Work Phone: Start: 01-08-1960 End: 01-07-1990 History of tobacco use Cigarette Smoker [facility] Work Phone: Start: 05-15-2020 End: 05-05-2023 Cigarettes smoked current (pack per day) - Reported 1 [facility] Work Phone: Start: 05-15-2020 End: 06-18-2024 Tobacco use and exposure Smokeless tobacco non-user [facility] Work Phone: Start: 09-05-2019 End: 05-05-2023 Tobacco Comment STOPPED 28 YEARS AGO [facility] Start: 09-05-2019 Alcohol Comment OCCASIONAL [facility] Start: 09-12-2019 Heavy [facility] Start: 09-12-2019 None [facility] Start: 11-23-2019 - [facility] Start: 12-18-2019 Non-smoker [facility] Start: 05-15-2020 End: 05-05-2023 Alcohol Use Disorder Identification Test - Consumption [AUDIT-C] [facility] Work Phone: How often to you hav e a drink containing alcohol? Monthly or less [facility] Work Phone: How many standard dr inks containing alcohol do you have on a typical day? 1 or 2 [facility] Work Phone: Frequency of Binge Drinking Not on file [facility] How hard is it for y ou to pay for the very basics like food, housing, medical care, and heating Not very hard [facility] (I/We) worried monae er (my/our) food would run out before (I/we) got money to buy more. DK or Refused [facility] Start: 09-20-2024 End: 10-16-2024 Sex Male (finding) [facility] Medical Equipment Procedure Code Equipment Code Equipment Origin al Text Equipment Identifier Dates ERCP (endoscopic retrograde cholangiopancreatog lalit) ([id number]) Polymeric biliary stent, non-bioabsorbable [id number] FDA Start: 12-15-2022 Patch Xenosure Bovine Pericardial Tissue 8x.8cm Vascular Sterile - [id number] Start: 09-02-2019 Goals Date Patient Goal Desired Activity /State Functional Status Date Assessment Result Facility 12-17-2022 Functional status Bedrest [facility] Work Phone: 12-16-2022 Functional status Tolerates Activity Fair [facility] Work Phone: 01-13-2022 Functional Status Room check performed [facility] 01-13-2022 [facility] 01-13-2022 Functional Status [facility] 01-13-2022 Functional Status [facility] 01-12-2022 Functional Status [facility] 01-12-2022 [facility] 01-12-[facility] Functional Status 50 [facility] 01-12-2022 Functional [facility]-12[facility]22 Functional Status Bed Bath Refused [facility] 01-12-2022 Functional Status bilateral knee high [facility] 01-12-2022 Functional Status padded oxygen tubing [facility] 01-11-2022 Functional Status Linen Change Done [facility] 01-11-2022 Functional Status [facility] 01-11-2022 Functional Status [facility] 01-10-2022 Functional Status [facility] 01-10-2022 Functional Status [facility] 01-10-2022 Functional Status Shampoo/Body w abdirashid (no rinse), CHG bath [facility] 01-10-2022 Functional Status [facility] 01-09-2022 Functional Status [facility] 01-09-2022 Functional Status [facility] 01-08-2022 Functional Status [facility] 01-07-2022 Functional Status Transfer Bed t o/from Chair Total 2 [facility] 01-07-2022 Functional Status Supervised 3 [facility] 01-07-2022 Functional Status Hair Care Maximum paola tance [facility] 01-07-2022 Functional Status Fluid Restriction Maint ained [facility] 01-06-2022 Functional Status [facility] 01-05-2022 Functional Status Special Call D evice Unable to use call device [facility] 01-05-2022 Functional Status [facility] 01-05-2022 Functional Status [facility] 01-05-2022 Functional Status Patient Identi fied Identification band, Verbal [facility] 01-04-2022 Functional Status Skin Care Done [facility] 01-03-2022 Functional Status [facility] 01-01-2022 Functional Status [facility] 12-30-2021 Functional Status Living Situati on Half-Way Unit [facility] 12-30-2021 Functional Status Sensory Defici ts Blind, left eye, Blind, right eye [facility] 12-11-2019 Are you deaf, or do you have serious difficulty hearing No 12/11/2019 4:18 PM Josefa Graves, KAVIN No [facility] 12-11-2019 Are you blind, or do you have serious difficulty seeing, even when wearing glasses No 12/11/2019 4:18 PM Josefa Graves, KAVIN No [facility] 12-11-2019 Do you have serious difficulty walking or climbing stairs Yes 12/11/2019 4:18 PM Josefa Graves, KAVIN Yes [facility] 12-11-2019 Do you have difficul ty dressing or bathing No 12/11/2019 4:18 PM Josefa Graves, KAVIN No [facility] 12-11-2019 Because of a physica l, mental, or emotional condition, do you have difficulty doing errands alone such as visiting a physician's office or shopping Yes 12/11/2019 4:18 PM Josefa Graves RN Yes [facility] Mental Status Date Assessment Result Facility 12-17-2022 Cognitive function Voice/Name [facility] Work Phone: 01-13-2022 Mental Status Orientation Oriented x [address] [facility] 01-13-2022 Mental Status [facility] 01-12-2022 Mental Status [facility] 01-12-2022 Mental Status [facility] 01-11-2022 Mental Status [facility] 12-11-2019 Because of a physica l, mental, or emotional condition, do you have serious difficulty concentrating, remembering, or making decisions No 12/11/2019 4:18 PM Josefa Graves RN No [facility] Clinical Notes 02-09-2021 to 01-14-2025 Gayla Cline MD - 01/14/2025 10:45 AM Gayla Banuelos MD - 01/14/2025 10:44 AM Gayla Banuelos MD - 01/14/2025 10:44 AM EDT Note Date & Type Note Facility 01-14-2025 Note HNO ID: [id number] Author: GAYLA CLINE MD Service: ? Author [...] (Patient not taking: Reported on 01/14/2025) vit C,S-An-rtipe-lutein-zeaxan (PRESERVISION AREDS-2) 250-90-40-1 mg Take 1 Each [...] daily. (Patient n (more content not included)... 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 Dr. Montgomery in [place] Congestive heart failure (HCC) Diabetes mellitus (HCC) DM (diabetes mellitus) ([facility]) PCP follows Dyslipidemia Heart attack (HCC) HTN [...] Gayla Cline MD documented in this encounter [facility] 01-14-2025 Note HNO ID: [id number] Author: GAYLA CLINE MD Service: ? Author Type: Physician Type: Procedures Filed: 01/14/2025 10:48 Note Text: CYSTOSCOPY PROCEDURE NOTE : Elizabeth Modi is a 84 year old male who is here for cystoscopy PRE-OP/PRE-PROCEDURE DIAGNOSIS: h/o gross henaturia POST-OP/POST-PROCEDURE DIAGNOSIS: same SURGERY/PROCEDURE(S): Cystoscopy Pt ID verified with patient: Yes Procedure verified with patient: Yes Procedure confirmed with physician and customer support advisor: Yes UNIVERSAL PROTOCOL / SAFETY CHECKLIST Procedure [...] meaning may be extrapolated by contextual derivation. [facility] 01-14-2025 Procedure note CYSTOSCOPY PROCEDURE NOTE : Elizabeth Modi is a 84 year old male who is here for cystoscopy PRE-OP/PRE-PROCEDURE DIAGNOSIS: h/o gross henaturia POST-OP/POST-PROCEDURE DIAGNOSIS: same SURGERY/PROCEDURE(S): Cystoscopy Pt ID verified with patient: Yes Procedure verified with patient: Yes Procedure confirmed with physician and customer support advisor: Yes UNIVERSAL PROTOCOL / SAFETY CHECKLIST Procedure [...] meaning may be extrapolated by contextual derivation. [facility] 01-14-2025 Procedure note CYSTOSCOPY PROCEDURE NOTE : Elizabeth Modi is a 84 year old male who is here for cystoscopy PRE-OP/PRE-PROCEDURE DIAGNOSIS: h/o gross henaturia POST-OP/POST-PROCEDURE DIAGNOSIS: same SURGERY/PROCEDURE(S): Cystoscopy Pt ID verified with patient: Yes Procedure verified with patient: Yes Procedure confirmed with physician and customer support advisor: Yes UNIVERSAL PROTOCOL / SAFETY CHECKLIST Procedure [...] by contextual derivation. documented in this encounter [facility] 10-16-2024 Evaluation note Diagnosis Onset Date Resolution Atherosclerotic heart disease of [place] coronary artery without angina pectoris chronic October 16, 2024 7:59am Essential hypertension chronic Ap 2024 7:59am Hyperlipidemia chronic September 7:59am Paroxysmal atrial fibrillation chronic October 16, 2024 7:59am [facility] Work Phone: 1(350) 986-459104-29-2025 Discharge summary [facility] Medical Records Department [address] [place] [address] Emergency Department Summary 10/15/24 MR#: [id number] Acct: [id number] Name: ELIZABETH MODI Rep #:[id number] : 1940 84 From: Jesse Griffith PCP: [...] of his last tetanus. 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 Call [facility] ([phone]) or report tothe closest Emergency Room. Call 911 if necessary. 10/15/24 8809 Cosigner Signature (if applicable): CC: Dr. Diana Salmeron MD ~ Signed [facility]04-29-2025 Radiology Diagnostic study note [facility] Imaging Services [address] [place], [place] [id number] Elbow min 3 Views MR#: [id number] Acct: [id number] Name: ELIZABETH MODI Rep #: [id number] : 1940 M 84 From: Franko Kapadia MD PCP: Dr. Diana Salmeron MD Status: REG ER Study:Elbow min 3 Views Date of Exam: Exam# [id number] Ordering Dr: Jesse Angel DO EXAM: Left elbow CLINICAL HISTORY: Injury, pain COMPARISON: None TECHNIQUE: Three views FINDINGS: No acute fracture or dislocation. Moderate joint space narrowing and osteophyte formation consistent with moderatearthrosis. Normal soft tissues. RAD/Elbow min 3 Views IMPRESSION: No acute fracture or dislocation. Moderate arthrosis. Reading Location: [facility] CC: Dr. Diana Salmeron MD; Dr. Jesse Angel DO ~ Electron Microscopist: Signed [facility]04-29-2025 Radiology Diagnostic study note [facility] Imaging Services [address] [place] [address] Orb Sella Post Fossa Ear w/o MR#: [id number] Acct: [id number] Name: ELIZABETH MODI Rep #: [id number] : 1940 M 84 From: Franko Kapadia MD PCP: Dr. Diana Salmeron MD Status: REG ER Study:Orb Sella Post Fossa Ear w/o Date of Ex am: 10/15/24 Exam# [id number] Ordering Dr: Jesse Angel DO PROCEDURE: ORB [...] ORBITAL FRACTURE OR RETROBULBAR HEMATOMA. Reading Location: [id number] CC: Dr. Diana Salmeron MD; Dr. Jesse Angel DO ~ Electron Microscopist: Signed [facility]04-29-2025 Discharge summary Author Jesse Angel [facility] Note Date/Time October 15, 2024 11: 45pm [facility] Medical Records Department [address] [place] [address] Emergency Department Summary 10/15/24 MR#: [id number] Acct: [id number] Name: ELIZABETH MODI Rep #:[id number] : 1940 84 From: Jesse Griffith PCP: [...] of his last tetanus. 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 Call [facility] ([phone]) or report to the closest Emergency Room. Call 911 if necessary. 10/15/24 8516 <Electronically signed by Jesse Angel DO> Cosigner Signature (if applicable): CC: Dr. Diana Salmeron MD ~ Signed [facility] Work Phone: 1(253) 664-243404-15-2025 Telephone encounter Note* Telephone Encounter - Yue Huffman - 10/01/2024 2:11 PM EDT May you please submit another order for for Urogram CT. When last appt was canceled the order was not removed from the appt. Sorry for the inconvenience. Marivel PSS [facility]04-15-2025 Miscellaneous Notes* Telephone Encounter - Yue Su - 10/01/2024 2:11 PM EDT May you please submit another order for for Urogram CT. When last appt was canceled the order was not removed from the appt. Sorry for the inconvenience. Marivel PSS documented in this encounterOhiohealth [facility] Center04-15-2025 Instructions* Patient Instructions* Nikolai Connor PA-C - 10/01/2024 1:46 PM EDT documented in this encounterOhiohealth [facility] Center04-15-2025 NoteHNO ID: [id number] Author: NIKOLAI CONNOR PA-C Service: ? Author Type: Physician Braille Typist Type: Progress Notes Filed: 10/01/2024 14:58 Note Text: [facility] [place] [facility] EST PATIENT CLINIC NOTE (M) Some [...] (ADULTS MULTIVITAMIN ORAL) Take by mouth. 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 Dr. Montgomery in [place] Congestive (more content not included)...[facility]04-15-2025 History of Present illness Narrative* Nikolai Connor PA-C - 10/01/2024 1:42 PM EDT Images from the original note were not included. [facility] [place] [facility] PATIENT CLINIC NOTE (M) Some elements copied from his previous note, which have been updated where appropriate, and all reflect current medical decision making from date of this visit. SERVICE DATE: October 01, 2024 NAME: Elizabeth oMdi GENDER: male CHIEF COMPLAINT: The patient is [...] (ADULTS MULTIVITAMIN ORAL) Take by mouth. 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 Dr. Montgomery in [place] Congestive heart failure (HCC) DM (diabetes mellitus) [...] cyanosis, or edema The patient or authorized floor representative has verbally agreed to proceed with [...] cystoscopy (bladder scope) with Dr. Hawk at [facility] has been placed; please turn in the printed order with the retirement so they can schedule your procedure. A urine culture has been ordered to check for infection. Increase your water intake to help clear the dark urine. If no bladder tumor is found on the cystoscopy or if your symptoms persist, you will need to followup with us to complete your hematuria workup. JAJA Stewart, JOE, TU * Luke Taylor LPN - 10/01/2024 1:19 [...] Plan: Appointment with Nikolai. documented in this encounterOhiohealth [facility]04-15-2025 NoteHNO ID: [id number] Author: LUKE TAYLOR LPN Service: ? Author [...] the procedure well. Plan: Appointment with Nikolai.[facility]03-21-2025 Evaluation note* Diagnosis Onset Date Resolution Status Admit Date Fecal incontinence acute September 06, 2024 1:38pm S/P ERCP chronic September 06 1:38pm [facility] Work Phone: 1(606) 322-799503-21-2025 Evaluation note* Diagnosis Onset Date Resolution Status Admit Date Fecal incontinence acute September 06, 2024 1:38pm S/P ERCP chronic September 06 1:38pm Atherosclerotic heart diseas e of [place] coronary artery without angina pectoris chronic October 16, 2024 7:59am Essential hypertension chronic Ap 2024 7:59am Hyperlipidemia chronic September 7:59am Paroxysmal atrial fibrillation chron ic October 16, 2024 7:59am [facility] Work Phone: 1(627) 607-375001-21-2025 Telephone encounter Note* Telephone Encounter - Luke Taylor LPN - 07/09/2024 3:50 PM EST Letter sent to patient that we have not been able to contact Angelic. Luke Taylor LPN [facility]01-21-2025 Miscellaneous Notes* Telephone Encounter - Luke Taylor [...] of the testing Nikolai Connor MPAS, MT, TU documented in this encounterOhiohealth [facility] Center01-21-2025 Telephone encounter Note * Telephone Encounter - Luke Taylor LPN - 07/09/2024 3:47 PM EST Called Angelic. No answer- left message to call clinic. Luke Taylor LPN [facility]01-17-2025 Telephone encounter Note* Telephone Encounter - Luke Taylor LPN - 07/05/2024 4:27 PM EST Called [facility]. No answer- left message to call clinic. Luke Taylor LPN [facility]01-14-2025 Telephone encounter Note* Telephone Encounter - Nayeli Dominguez - 07/02/2024 2:24 PM EST Left pt's daughter message to call & schedule cysto with Dr. Prakash Connor. Delmi [facility]01-14-2025 Miscellaneous Notes* Telephone Encounter - Nayeli Dominguez - 07/02/2024 2:24 PM EST Left pt's daughter message to call & schedule cysto with Dr. Prakash Connor. Delmi documented in this encounterOhiohealth [facility] Center01-10-2025 History of Present illness Narrative* Luke Mercer, RT(R) - 06/28/2024 1:20 PM EST Radiology [...] PATIENT PRESENTS WITH AN IMPLANTABLE OR ATTACHED FOOD SERVICE TEAM MEMBER: No ALLERGIES: Reviewed and unchanged CONTRAST ALLERGY: [...] DEPARTMENT: CT; Exam(s) Completed: Urogram SIGNATURE: RT Reagan(Sol) PATIENT NAME: Elizabeth Modi DATE: June 28, 2024 TIME: 1:57 PM documented in this encounterOhiohealth [facility] Medical Center01-10-2025 NoteHNO ID: [id number] Author: REEF RAIN, LUKE, RT(R) Service: ? 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 Susan Joy MA [facility]01-03-2025 Telephone encounter Note* Telephone Encounter - Anaid Payne MA - 06/21/2024 4:28 PM EST ----- Message from Nikolai Connor PA-C sent at 06/21/2024 3:54 PM EST ----- No infection in the urine No cancer cells in urine, please continue the rest of the testing JAJA Stewart MT, PA-C [facility]12-31-2024 NoteHNO ID: [id number] Author: NIKOLAI CONNOR PA-C Service: ? Author Type: Physician Braille Typist Type: Progress Notes Filed: 06/18/2024 16:05 Note Text: [facility] [place] [facility] NEW PATIENT CLINIC NOTE SERVICE DATE: June 18, 2024 NAME: Elizabeth Modi CHIEF COMPLAINT: Hematuria HISTORY OF PRESENT ILLNESS: Elizabeth Modi is a 83 year old male an new patient here for The patient reports Hematuria with a few episodes of hematuria Will get Urine sample today for culture and cytology Schedule Cystoscopy at [place] And CT Urogram at [place] We discussed the need for full hematuria [...] (ADULTS MULTIVITAMIN ORAL) Take by mouth. vit C,Q-Cg-lrhgf-lutein-zeaxan (PRESERVISION AREDS-2) 250-90-40-1 mg Take 1 Each [...] kidney disease no dialysis. Dr. Montgomery in [place] Congestive heart failure (HCC) DM (diabetes mellitus) (HCC) PCP follows Dyslipidemia Heart attack (HCC) HTN (hypertension) Hypercholesterolemia Hypothyroidism PVD (peripheral vascular disease) (HCC) Renal mass (more content not included)...[facility]12-31-2024 History of Present illness Narrative* Nikolai Connor PA-C - 06/18/2024 1:26 PM EST Images from the original note were not included. [facility] [place] [facility] NEW PATIENT CLINIC NOTE SERVICE DATE: June 18, 2024 NAME: Elizabeth Modi CHIEF COMPLAINT: Hematuria HISTORY OF PRESENT ILLNESS: Elizabeth Modi is a 83 year old male an new patient here for The patient reports Hematuria with a few episodes of hematuria Will get Urine sample today for culture and cytology Schedule Cystoscopy at [place] And CT Urogram at [place] We discussed the need for full hematuria [...] (ADULTS MULTIVITAMIN ORAL) Take by mouth. vit C,X-Nd-mvujr-lutein-zeaxan (PRESERVISION AREDS-2) 250-90-40-1 mg Take 1 Each [...] kidney disease no dialysis. Dr. Montgomery in [place] Congestive heart failure (HCC) DM (diabetes mellitus) (HCC) PCP follows Dyslipidemia Heart attack (HCC) HTN (hypertension) Hypercholesterolemia Hypothyroidism PVD (peripheral vascular disease) ([facility]) Renal mass PAST SURGICAL HISTORY: PAST SURGICAL [...] JAJA Stewart MT, PA-C documented in this encounterOhiohealth [facility] Medical Center12-19-2024 Evaluation note* Diagnosis Onset Date Resolution Status Admit Date Fecal incontinence acute Decemb er 2023 3:30pm S/P ERCP chronic June 06, 2024 3:30pm Fecal incontinence acute September 06, 2024 1:38pm S/P ERCP chronic September 06 1:38pm [facility] Work Phone: 1(295) [phone] Note. MICRO - Microbiology PROCEDURE: Blood Culture [...] Locations *1: This test was performed at: [address] , [facility])08-04-2023 Note. MICRO - Microbiology PROCEDURE: Blood Culture [...] Locations *1: This test was performed at: [address], [address] , [facility] ([place])04-16-2023 Note. MICRO - Microbiology [...] Locations *1: This test was performed at: [facility], [address] [place] [address], [address] , [facility] ([place])03-27-2023 Miscellaneous Notes* Telephone Encounter - Ammy Bradshaw - 03/27/2023 1:44 PM EDT Referral received [facility] for OR to call and schedule appt. Ammy Bradshaw documented in this encounterOhiohealth Grant Medical Center03-21-2023 Miscellaneous Notes* Telephone Encounter - Quan Iraheta DO - 09/06/2022 5:03 PM EDT Spoke with patient's nurse at [facility]. Counseled to taper prednisone by 2.5mg weekly [...] agreement with the plan. documented in this encounterOhiohealth Grant Medical Center03-21-2023 Miscellaneous Notes* Telephone Encounter - Quan Iraheta DO - 09/06/2022 12:47 PM EDT Attempted to speak with a provider for Mr. Modi at [email or web address] to claims counsel prednisone taper of 2.5mg q week based upon rheumatology and ophthalmology evaluation not c/w GCA. Phone rang without answer x 2. Will attempt to call again this afternoon. 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 Eating Habits- No raw meat, not vegan [...] - Being assessed for cataract surgery at [facility] Age related macular degeneration - Smoking [...] 01, 2022 3:05 PM documented in this encounterOhiohealth [facility] Medical Center03-16-2023 Instructions* Patient Instructions* Shana Delgado MD - 09/01/2022 10:54 AM EDT Labs on the first floor today Eye exam today in [facility] Continue prednisone dose as is pending labs and eye evaluation documented in this encounterOhiohealth Grant Medical Center03-16-2023 History of Present illness Narrative* Shana Delgado [...] vascular disease s/p bilateral BKA, CKD, and ME s/p CABG who presents for evaluation of [...] muscle aches or pains Vascular surgery at [facility]: Left temporal artery biopsy 12/24/2021 A. [...] many vessels Eye doctor Dr. Lucas at [facility] sent him to [facility] for GCA evaluation [phone], Currently on prednisone 10mg daily since 02/28/2022 [...] (initially didn't like the food at the retirement) HEAD: negative for, scalp tenderness, jaw claudication, [...] kidney disease no dialysis. Dr. 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 This is a very pleasant 82 yo male with numerous cardiovascular risk factors presenting in the context of decreased vision with photosensitivity. Based upon the history that was obtained from the patient and retirement caregiver today, he has not endorsed GCA [...] Zack Iraheta DO PGY5 Rheumatology Fellow Pager [phone] The above patient was seen and examined [...] arteritis Shana Burton MD documented in this encounterOhiohealth Grant Medical Center08-01-2022 Note ORIGINAL EXAMINATION: TWO XRAY VIEWS OF [...] 01/17/2022 11:59:11 PM Ordering Provider[id number] Note ORIGINAL EXAMINATION: TWO XRAY VIEWS OF [...] Sign Date: 01/17/2022 11:59:11 PM Ordering Provider: [facility]07-28-2022 Note Discharge Instructions Thank you for allowing [...] Op 01/17/2022 01:00 PM EDT HUNTER FALCON [facility] Cardiothoracic Surgery [facility] Follow Up 02/15/2022 10:00 AM EDT [facility] Heart Vascular [facility] Follow Up Appointments Follow Up with KARL HIDALGO MD When 02/15/2022 10:00 AM EDT Where: [address] [place] [address] [place] [address]- Follow Up with HUNTER FALCON When 01/17/2022 01:30 PM EDT Why: please obtain a CXR 1 hour prior to your appt. Where: [address] GYPSY [address] [facility] [place] [address]- Follow Up with Discharge to [facility] LOC [phone] When Within 1-2 days Follow Up with Cardiac Rehab- [facility] When Why: The Cardiac Rehab department will call you to schedule you for phase 2. We left you a brochurewith information about cardiac rehab. If you have any questions please call [phone]. Where: [facility] [address] [place] [address]- The Following Activity and Diet Have Been [...] surgeon and have chest x-ray done at [place] [facility]., 01/13/22 10:45:00 EDT Other Therapies [...] Potential - Ordered -- Rehab potential fair-Has Bilkristine. BKA, 01/13/22 10:45:15 EDT Someone Will Contact [...] it can visit one of [facility] vaccine clinics. There are many vaccine clinic locations within the [facility]. For locations and available times, please visit [email or web address] It is important to note that some COVID mobile vaccine clinics are held outdoors and may be canceled in rainy or stormy conditions. To learn more about pediatric vaccinations (ages 5-11), we invite you to visit the [facility] webpage. [email or web address]/[email or web address] stions.htmlTo learn more about the COVID-19 vaccine, we invite you to visit the [place] website for a list of frequently asked questions. [email or web address].pdf [facility] Patient Portal Access Instructions: Stay connected with your healthcare team and access your personal medical information anytime with the [facility] Patient Portal.If you would like a full copy of your medical records, please contact the [facility] Medical Records Department, Monday through Monday between 8a.m. and 4:30p.m. Please follow the directions below to access the portal: 1.Access the email account you provided upon registration to the [facility].2.Look for an invitation email from [facility].3.Open the email and access the invitation link: Accept Invitation to [facility]4.Fill in the required rios to create your account. Sign into [email or web address] with your username and password that you [...] you will allow to register on the [facility] Patient Portal for access to your information. You can also access the [facility] Patient Portal on the [employer]. Simply click on "Health Records" under "Engage ResourcesDaBridge" and then click on the BookingNest logo. HOW TO SAFELY DISPOSE OF PRESCRIPTION [...] Call your local pharmacy or go to [email or web address] to find one close to you.3.Make use of household items: Use cat litter or old coffee grounds to dispose medications if other options arenot available. Mix your drugs with these household products, seal them in an airtight container andthrow it into the garbage. Call [facility]: [phone] to be sure your drugs can be [...] been reviewed and explained to me and I,ELIZABETH MODI understand my current condition and have read and understand these discharge instructions. I have receiveda written copy of the plan/instructions. If I have questions, I am aware that I should contact my do ctor. 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 Signature: Date/Time: Relationship to Patient: Witness Name/Signature: Date/Time: [id number] Note ORIGINAL EXAMINATION: ONE XRAY VIEW OF [...] 01/13/2022 6:27:59 AM Ordering Provider: YIMI NEWELL [facility] HospitalRibvthco31-93-6577 Note ORIGINAL EXAMINATION: ONE XRAY VIEW OF [...] Sign Date: 01/13/2022 6:27:59 AM Ordering Provider: [facility]07-27-2022 Note ORIGINAL EXAMINATION: ONE XRAY VIEW [...] Date: 01/12/2022 7:32:39 PM Ordering Provider: YIMI NEWELL [facility] [id number] Note ORIGINAL EXAMINATION: ONE XRAY VIEW OF [...] Date: 01/12/2022 7:32:39 PM Ordering Provider: YIMI TORRESMedina HospitalSpvjvgcw38-64-7299 Note Date of Service 01/12/2022 Temporary A and V pacer wires discontinued. Patient tolerated well. Patient instructed to remain bedrest for 1 hour. Digitally Signed by YIMI NEWELL on 01/12/2022 05:06 PM [facility] HospitalXimetotf79-04-3715 Note Date of Service 01/12/2022 Chief Complaint [...] cell arteritis on prednisone. He resides at [facility]. He presented on 12/30/2021 with sudden onset of altered mental status and shortness of breath. Troponin 3577. Creatinine elevated 2.3. He was transferred to [facility] for fur ther evaluation. Echocardiogram completed [...] rhythm in the 60s. Transfer to stepdown. [facility] following for blood sugar management. [...] Central venous access: Left subclavian triple-lumen Disposition: [place] Weight Current Weight Dosing Weight: 81.5 [...] 7. Diabetes Hgb A1c 8.4% Followed by [facility]. Glucoses ranging 69-1 33. On [...] Dr. Hernandez. [1] Progress Note; PALAK NORMAN APRN-MARKETING ENGINEER 01/11/2022 11:08 EDT Digitally Signed by YIMI NEWELLRN MEDICATION on 01/12/2022 04:58 PM [facility] [id number] Note Date of Service 07/14/2021 postop day [...] cell arteritis on prednisone. He resides at [facility]. He presented on 12/30/2021 with sudden onset of altered mental status and shortness of breath. Troponin 3577. Creatinine elevated 2.3. He was transferred to [facility] for fur ther evaluation. Echocardiogram completed [...] rhythm in the 60s. Transfer to stepdown. [facility] following for blood sugar management. [...] by PALAK NORMAN on 01/11/2022 11:18 AM [facility] [id number] Endocrinology Progress note Date of Service 01/11/22 [...] Weinstein on 12/24/2021-on prednisone. [facility] past [facility]. He presented to [facility] on December 30, 2021 due to a sudden onset of alteredmental status and shortness of breath. At [facility], he was noted to have acute kidney injury with creatinine 2.3 and elevated troponin at 3577. EKG revealed normal sinus rhythm without evidenceof ST elevation or depression. Negative for COVID-19 at [facility]. He was transferred to [facility] for further evaluation. Echocardiogram on December 30, 2021 revealed an EF of 45 to 50% and mild MR. 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 Cardiothoracic surgery was consulted for possible surgical myocardial vascularization. 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 Endocrine consult placed by [facility] for diabetic management. Longstanding type II diabetic with A1c of 8.4%. Currently residing at [facility] with orders in place for Humalog [...] 10 units qhs, metformin 500 twice daily, Dlvknqzgq46co qd and a 0-10 sliding scale with [...] by CASPER MURRY on 01/11/2022 11:35 AM [facility] [id number] Note ORIGINAL EXAMINATION: CT OF THE CHEST [...] Date: 01/10/2022 4:43:27 PM Ordering Provider: YIMI LEIXON [facility] [id number] Endocrinology Progress note Date of Service 01/10/22 [...] Weinstein on 12/24/2021-on prednisone. He resides at [facility] past 3 months. He presented to [facility] on December 30, 2021 due to a sudden onset of alteredmental status and shortness of breath. At [facility], he was noted to have acute kidney injury with creatinine 2.3 and elevated troponin at 3577. EKG revealed normal sinus rhythm without evidenceof ST elevation or depression. Negative for COVID-19 at [facility]. He was transferred to [facility] for further evaluation. Echocardiogram on December 30, 2021 revealed an EF of 45 to 50% and mild MR. 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 Cardiothoracic surgery was consulted for possible surgical myocardial vascularization. 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 Endocrine consult placed by [facility] for diabetic management. Longstanding type II diabetic with A1c of 8.4%. Currently residing at [facility] with orders in place for Humalog [...] by CASPER MURRY on 01/10/2022 04:44 PM [facility] HospitalQmrkfdsj91-46-3409 Note ORIGINAL EXAMINATION: CT OF THE CHEST [...] Sign Date: 01/10/2022 4:43:27 PM Ordering Provider: [facility]07-25-2022 Note Date of Service 01/10/2022 Chief [...] cell arteritis on prednisone. He resides at [facility]. He presented on 12/30/2021 with sudden onset of altered mental status and shortness of breath. Troponin 3577. Creatinine elevated 2.3. He was transferred to [facility] for further evaluation. Echocardiogram completed showing [...] by NICHOLE RODRIGUEZ on 01/10/2022 08:37 AM [facility] HospitalXvcnferz50-44-1359 Note Date of Service 01/09/2022 Repeat INR 6.3. Aquamephyton 10 mg SQ x1. Repeat INR in 4 hours. Digitally Signed by KASSIDY SHANKAR on 01/09/2022 02:03 PM [facility] [id number] Endocrinology Progress note Date of Service 01/09/22 [...] Weinstein on 12/24/2021-on prednisone. He resides at [facility] past [facility]. He presented to [facility] on December 30, 2021 due to a sudden onset of alteredmental status and shortness of breath. At [facility], he was noted to have acute kidney injury with creatinine 2.3 and elevated troponin at 3577. EKG revealed normal sinus rhythm without evidenceof ST elevation or depression. Negative for COVID-19 at [facility]. He was transferred to [facility] for further evaluation. Echocardiogram on December 30, 2021 revealed an EF of 45 to 50% and mild MR. 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 Cardiothoracic surgery was consulted for possible surgical myocardial vascularization. 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 Endocrine consult placed by [facility] for diabetic management. Longstanding type II diabetic with A1c of 8.4%. Currently residing at [facility] with orders in place for Humalog [...] BERNICE MONREAL MD on 01/09/2022 01:13 PM [facility] HospitalLzkazqlb11-02-7293 Note Date of Service 01/09/2022 POD #4 [...] giant cellarteritis on prednisone. He resides at [facility]. He presented on 12/30/2021 with sudden onset ofaltered mental status and shortness of breath. Troponin 3577. Creatinine elevated 2.3. He was transferred to [facility] for further evaluation. Echocardiogram completed showing [...] Continue Central Line: For IV access Disposition: [place] Weight Current Weight Dosing Weight: 81.5 [...] baseline, plan follow-up with Dr. Montgomery from [place] at discharge currently NSR rate 60, Coumadin on hold secondary to elevated INR 4.8. 5. CKD (chronic kidney disease), stage III 6. AF (paroxysmal atrial fibrillation) Currently NSR rate 60, Coumadin on hold secondary to elevated INR 4.8.Repeat INR at noon. On amiodarone. Home amiodarone and Eliquis were both discontinued in August 2021 7. Diabetes Hgb A1c 8.4% Glucose 68-177, [facility] [facility] following 8. HTN (hypertension) Blood [...] by KASSIDY SHANKAR on 01/09/2022 11:51 AM [facility] HospitalJncgeplq56-48-2365 Note ORIGINAL EXAMINATION: TWO XRAY VIEWS OF [...] Sign Date: 01/09/2022 7:51:53 AM Ordering Provider: [facility]07-24-2022 Note ORIGINAL EXAMINATION: TWO XRAY VIEWS [...] Sign Date: 01/09/2022 7:51:53 AM Ordering Provider: [facility]07-23-2022 Endocrinology Progress note Date of Service 01/08/22 [...] Glucose, Capillary 01/08/2022 16:28:00 EDT 132 mg/dL [place] 82-115 Glucose Testing Blood Glucose, Capillary 01/08/2022 11:29:00 EDT 177 mg/dL [place] 82-115 Y Glucose Testing Blood Glucose, Capillary 01/08/2022 07:10:00 EDT 141 mg/dL [place] 82-115 Glucose Testing Glucose Level 01/08/2022 04:20:00 EDT 145 mg/dL UT 82-115 Assessment/Plan 1. CAD (coronary artery disease) [...] Weinstein on 12/24/2021-on prednisone. He resides at [facility] past 3 months. He presented to [facility] on December 30, 2021 due to a sudden onset of alteredmental status and shortness of breath. At [facility], he was noted to have acute kidney injury with creatinine 2.3 and elevated troponin at 3577. EKG revealed normal sinus rhythm without evidenceof ST elevation or depression. Negative for COVID-19 at [facility]. He was transferred to [facility] for further evaluation. Echocardiogram on December 30, 2021 revealed an EF of 45 to 50% and mild MR. 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 Cardiothoracic surgery was consulted for possible surgical myocardial vascularization. 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 Endocrine consult placed by [facility] for diabetic management. Longstanding type II diabetic with A1c of 8.4%. Currently residing at [facility] with orders in place for Humalog [...] BERNICE MONREAL MD on 01/08/2022 05:20 PM [facility] HospitalVhtpfdep45-02-2319 Note Date of Service 01/08/2022 POD #3 [...] giant cellarteritis on prednisone. He resides at [facility]. He presented on 12/30/2021 with sudden onset ofaltered mental status and shortness of breath. Troponin 3577. Creatinine elevated 2.3. He was transferred to [facility] for further evaluation. Echocardiogram completed showing [...] episodes of bradycardia. Plans to return to [place] at discharge Subjective No complaints Objective [...] baseline, plan follow-up with Dr. Montgomery from [facility] at discharge, Urineoutput 1100 cc last 24 hours 5. CKD (chronic kidney disease), stage III 6. AF (paroxysmal atrial fibrillation) Currently atrial fibrillation rate 90, Coumadin, amiodarone, patient had previously been on amiodarone and Eliquis but these were discontinued in August 2021 7. Diabetes Hgb A1c 8.4% Glucose 141-249, [facility] [facility] following 8. HTN (hypertension) Blood [...] by KASSIDY SHANKAR on 01/08/2022 11:02 AM [facility] [id number] Note ORIGINAL EXAMINATION: ONE XRAY VIEW OF [...] 01/08/2022 7:49:49 AM Ordering Provider: YIMI NEWELL [facility] [id number] Note ORIGINAL EXAMINATION: ONE XRAY VIEW OF [...] Sign Date: 01/08/2022 7:49:49 AM Ordering Provider: [facility]07-22-2022 Nephrology Progress note Date of Service [...] renal standpoint. Patient will follow with his bottom steep tender Dr. Montgomery in [place] on discharge. Discussed with patient. Digitally Signed by TAMIKA RODAS MD on 01/07/2022 12:42 PM [facility] HospitalZflbbjef93-89-0701 Note ORIGINAL EXAMINATION: TWO XRAY VIEWS OF [...] Date: 01/07/2022 12:23:59 PM [facility]inology Progress note Date of Service 01/07/22 [...] mupirocin 2% Ointment 22 Gram(s) tube 1 efmi, Nostril, each, BID pantoprazole 40 mg EC [...] Weinstein on 12/24/2021-on prednisone. He resides at [facility] past 3 months. He presented to [facility] on December 30, 2021 due to a sudden onset of alteredmental status and shortness of breath. At [facility], he was noted to have acute kidney injury with creatinine 2.3 and elevated troponin at 3577. EKG revealed normal sinus rhythm without evidenceof ST elevation or depression. Negative for COVID-19 at [facility]. He was transferred to [facility] for further evaluation. Echocardiogram on December 30, 2021 revealed an EF of 45 to 50% and mild MR. 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 Cardiothoracic surgery was consulted for possible surgical myocardial vascularization. 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 Endocrine consult placed by [facility] for diabetic management. Longstanding type II diabetic with A1c of 8.4%. Currently residing at [facility] with orders in place for Humalog [...] 03:34 PM Digitally Signed by CASPER MURRY APRN-RN MEDICATION on 01/07/2022 04:39 PM [facility] [id number] Note Date of Service 01/07/2022 Chief Complaint [...] and shortness of breath. He resides at [facility]. He denied having any chest pain or syncope. He was found to have an acute kidney injury at that time with creati nine of 2.3 and a troponin of 3577 at [facility]. He was transferred to [place] for further evaluation where an echocardiogram revealed [...] Central venous access: Left subclavian triple-lumen Disposition: [facility] Weight Current Weight Dosing Weight: [...] 7. Diabetes Hgb A1c 8.4% Followed by [facility] [facility]. Glucoses ranging 96-1 55. On [...] by YIMI NEWELL on 01/07/2022 10:01 AM [facility] [id number] Anesthesiology Consult note Patient: ELIZABETH MODI Age: [...] LINN RICHARD DO on 01/07/2022 08:18 AM [facility] [id number] Note ORIGINAL EXAMINATION: TWO XRAY VIEWS OF [...] Sign Date: 01/07/2022 12:23:59 PM Ordering Provider: [facility]07-21-2022 Nephrology Progress note Date of Service [...] TAMIKA RODAS MD on 01/06/2022 10:19 AM [facility] [id number] Endocrinology Progress note Date of Service 01/06/22 [...] Weinstein on 12/24/2021-on prednisone. He resides at [facility] past [facility]. He presented to [facility] on December 30, 2021 due to a sudden onset of alteredmental status and shortness of breath. At [facility], he was noted to have acute kidney injury with creatinine 2.3 and elevated troponin at 3577. EKG revealed normal sinus rhythm without evidenceof ST elevation or depression. Negative for COVID-19 at [facility]. He was transferred to [facility] for further evaluation. Echocardiogram on December 30, 2021 revealed an EF of 45 to 50% and mild MR. Cardiac catheterization completed showing multivessel disease.Cardiothoracic surgery has been consulted for possible surgical myocardial vascularization. Endocrine consult placed by [facility] for diabetic management. Longstanding type II diabetic with A1c of 8.4%. Currently residing at [facility] with orders in place for Humalog [...] by CASPER MURRY on 01/06/2022 04:03 PM [facility] HospitalMepnbmre18-47-6308 Note Date of Service 01/06/2022 Chief Complaint [...] and shortness of breath. He resides at [facility]. He denied having any chest pain or syncope. He was found to have an acute kidney injury at that time with creati nine of 2.3 and a troponin of 3577 at [facility]. He was transferred to [place] for further evaluation where an echocardiogram revealed [...] 1 45, on insulin drip per the [facility] ICU glycemic protocol at 8 units/h, endocrinology [...] by BARRERA SALES on 01/06/2022 07:42 AM [facility] [id number] Note ORIGINAL EXAMINATION: ONE XRAY VIEW OF [...] Sign Date: 01/06/2022 6:18:00 AM Ordering Provider: [facility]07-21-2022 Note ORIGINAL EXAMINATION: ONE XRAY VIEW OF [...] Sign Date: 01/06/2022 6:18:00 AM Ordering Provider: [facility]07-20-2022 Cardiology Progress note Date of Service 01/05/22 [...] CELIO CLAROS MD on 01/05/2022 02:25 PM [facility] HospitalSexkhotp77-03-5756 Nephrology Progress note Date of Service 01/05/2022 [...] TAMIKA RODAS MD on 01/05/2022 02:15 PM [facility] HospitalKozkpjtv73-05-2432 Note ORIGINAL HISTORY: Line placement COMPARISON: 5 [...] Sign Date: 01/05/2022 1:24:35 PM [facility] Note ORIGINAL HISTORY: Nasogastric tube placement COMPARISON: No FINDINGS: There is a nasogastric tube with tip in the stomach and side hole at the gastroesophageal junction. Interpreted by: Zack Bucio MD Preliminary Report By: Zack Bucio MD Electronically signed By Zack Bucio MD Dictated Date: 01/05/2022 1:22:43 PM Prelim Date: 01/05/2022 1:23:19 PM Sign Date: 01/05/2022 1:23:19 PM [facility]ing [facility] Note ORIGINAL HISTORY: Line placement [...] Sign Date: 01/05/2022 1:24:35 PM Ordering Provider: [facility]07-20-2022 Note ORIGINAL HISTORY: Nasogastric tube placement COMPARISON: No FINDINGS: There is a nasogastric tube with tip in the stomach and side hole at the gastroesophageal junction. Interpreted by: Zack Bucio MD Preliminary Report By: Zack Bucio MD Electronically signed By Zack Bucio MD Dictated Date: 01/05/2022 1:22:43 PM Prelim Date: 01/05/2022 1:23:19 PM Sign Date: 01/05/2022 1:23:19 PM Ordering Provider: [facility]07-20-2022 Cardiology Progress note Date of Service 01/05/22 [...] CELIO CLAROS MD on 01/05/2022 02:25 PM [facility] [id number] Anesthesiology Consult note Patient: ELIZABETH MODI Age: [...] kidney disease), stage III / SNOMED CT 4175390454 / Confirmed CAD (coronary artery disease) / SNOMED CT 89941671 / Confirmed Diabetes / SNOMED CT 468858508 / Confirmed History of Singh's palsy / SNOMED CT 498281678 / Confirmed HLD (hyperlipidemia) / SNOMED CT 96085735 / Confirmed HTN (hypertension) / SNOMED CT 2004587253 / Confirmed Hypothyroid / SNOMED CT 98063307 / Confirmed QUIN (acute kidney injury) / SNOMED CT 04193562 / Confirmed Mood disorder / SNOMED CT 94771056 / Confirmed NSTEMI (non-ST elevated myocardial infarction) / SNOMED CT 36595207 / Confirmed AF (paroxysmal atrial fibrillation) / SNOMED CT 180245693 / Confirmed PVD (peripheral vascular disease) / SNOMED CT 6887836596 / Confirmed Giant cell arteritis / SNOMED CT 9783991850 / Confirmed, Active Problems (24) AF (paroxysmal atrial fibrillation) QUIN (acute kidney injury) CAD (coronary artery disease) Cataract CKD (chronic kidney disease), stage III COPD (chronic obstructive pulmonary disease) Depression Diabetes DM (diabetes mellitus) Giant cell arteritis Giant cell arteritis syndrome Glasses Heart disease High blood pressure History of Singh's palsy HLD (hyperlipidemia) HTN (hypertension) Hypothyroid Kidney disease ME (myocardial infarction) Mood disorder NSTEMI (non-ST elevated myocardial infarction) PVD (peripheral vascular disease) Tachycardia Histories Past Medical History: No active or resolved past medical history items have been selected or recorded. Family History: No family history items have been selected or recorded. Procedure history: Amputation ([id number]) in 2020 at 79 Years. Comments: 07/12/2021 14:23 Maria Esther Navarro RN Left below the knee Amputation ([id number]) in 2020 at 79 Years. Comments: 07/12/2021 14:24 Maria Esther Navarro RN right below the knee amputation Catheter ([id number]) in 2020 at 79 Years. Comments: 07/12/2021 14:25 Maria Esther Navarro RN Temporary dialysis cath None ([id number]). 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 No Communications Consultant On Yes Patient Dressed In Hospital gown [...] On and Limits Checked Nail Bed Color Collbran Capillary Refill < 2 seconds Heart Sounds [...] Warm Temperature All Extremities Warm Skin Description Collbran, Normal for ethnicity, Dry Skin Integrity Pressure points intact Skin Turgor Elastic Mucous Membrane Color Collbran Mucous Membrane Description Moist Sensory Perception Dre [...] Rhythm Sinus rhythm Monitoring Lead II, V1/MCL1 NE Interval 0.17 second(s) QRS Duration 0.12 second(s) [...] Transport Mode Order Detail MTT with Monitor Abrasive Grinder Details Form Abrasive Grinder Details Form 01/05/2022 0:28 EDT Skin Assessment [...] Transport Mode Order Detail MTT with Monitor Abrasive Grinder Details Form Abrasive Grinder Details Form 01/04/2022 23:29 EDT heparin Begin [...] On and Limits Checked Nail Bed Color Collbran Capillary Refill < 2 seconds Heart Sounds ICU S1S2 Heart Rhythm Regular Radial Pulse, Left 2+ Normal Radial Pulse, Right 2+ Normal Popliteal Pulse, Left 1+ Thready Popliteal Pulse, Right 1+ Thready Edema Generalized None Cardiac Rhythm Sinus rhythm Monitoring Lead II, V1/MCL1 NE Interval 0.18 second(s) QRS Duration 0.12 second(s) QT Interval 0.47 second(s) QTc Interval 0.48 second(s) Alarms On and Functional Yes Respirations Unlabored Respiratory Pattern Regular Breath Sounds Auscultated Anterior only All Lobes Breath Sounds Clear Oxygen Therapy Room air Abdomen Description Non-distended, Symmetric, Soft Abdomen Palpation Non-Tender Bowel Sounds All Quadrants Present Urinary Elimination Voiding, no difficulties All Extremity Description Collbran, Normal for ethnicity Skin Temperature Warm Temperature All Extremities Warm Skin Description Collbran, Normal for ethnicity Mucous Membrane Color Collbran Mucous Membrane Description Moist Leg Bilateral Skin [...] On and Limits Checked Nail Bed Color Collbran Capillary Refill < 2 seconds Heart Sounds ICU S1S2 Heart Rhythm Regular Radial Pulse, Left 2+ Normal Radial Pulse, Right 2+ Normal Popliteal Pulse, Left 1+ Thready Popliteal Pulse, Right 1+ Thready Edema Generalized None Cardiac Rhythm Sinus rhythm Monitoring Lead II, V1/MCL1 NE Interval 0.19 second(s) QRS Duration 0.12 second(s) [...] Facial Movement Symmetric resting/crying All Extremity Description Collbran, Normal for ethnicity Skin Temperature Warm Temperature All Extremities Warm Skin Description Collbran, Normal for ethnicity Skin Integrity Pressure points intact Skin Turgor Elastic Mucous Membrane Color Collbran Mucous Membrane Description Moist Sensory Perception Dre [...] Symptoms Bruising Skin Temperature Warm Skin Description Collbran, Normal for ethnicity Skin Integrity Intact Skin Turgor Elastic Mucous Membrane Color Collbran Mucous Membrane Description Moist Sensory Perception Dre [...] On and Limits Checked Nail Bed Color Collbran Capillary Refill < 2 seconds Heart Sounds [...] Facial Movement Symmetric resting/crying All Extremity Description Collbran, Normal for ethnicity Skin Temperature Warm Temperature All Extremities Warm Skin Description Collbran, Normal for ethnicity Skin Integrity Pressure points intact Skin Turgor Non-Elastic Mucous Membrane Color Collbran Mucous Membrane Description Moist Leg Bilateral Skin [...] 11:06 EDT Blood Glucose, Capillary 148 mg/dL UT Blood Glucose Testing Reason Routine Temperature Oral [...] Rhythm Sinus rhythm Monitoring Lead III, V1/MCL1 NE Interval 0.20 second(s) QRS Duration 0.09 second(s) [...] mEq predniSONE 10 mg mg vitamin A 28415 unit(s) unit(s) 01/04/2022 8:39 EDT Heart Rate Monitored 59 bpm LOW Reason For Taking VItal Signs Routine Primary Pain Intensity 0 Primary Pain Nonverbal Response Nods No Pain Scale Type 0-10 Pain scale Monitor Alarms On and Limits Checked Nail Bed Color Collbran Capill (more content not included)... [id number] Cardiology Progress note Date of Service 01/04/22 [...] CELIO CLAROS MD on 01/04/2022 02:59 PM [facility] [id number] Cardiology Progress note Date of Service 01/04/22 [...] CELIO CLAROS MD on 01/04/2022 02:59 PM [facility] HospitalAyfuzvwt22-26-2033 Endocrinology Progress note Date of Service 01/04/22 [...] Weinstein on 12/24/2021-on prednisone. [facility] He presented to [facility] on December 30, 2021 due to a sudden onset of alteredmental status and shortness of breath. At [facility], he was noted to have acute kidney injury with creatinine 2.3 and elevated troponin at 3577. EKG revealed normal sinus rhythm without evidenceof ST elevation or depression. Negative for COVID-19 at [facility]. He was transferred to [facility] for further evaluation. Echocardiogram on December 30, 2021 revealed an EF of 45 to 50% and mild MR. Cardiac catheterization completed showing multivessel disease.Cardiothoracic surgery has been consulted for possible surgical myocardial vascularization. Endocrine consult placed by CTS for diabetic management. Longstanding type II diabetic with A1c of 8.4%. Currently residing at [facility] with orders in place for Humalog [...] by CASPER MURRY on 01/04/2022 04:05 PM [facility] [id number] Note ORIGINAL EXAMINATION: CTA OF THE NECK [...] Sign Date: 01/04/2022 9:39:34 AM Ordering Provider: [facility]07-18-2022 Cardiology Progress note Date of [...] CELIO CLAROS MD on 01/03/2022 06:35 PM [facility] [id number] Note ORIGINAL EXAMINATION: CTA OF THE NECK [...] Date: 01/04/2022 9:39:34 AM Ordering Provider: [facility]07-18-2022 Nurse Progress note [address] CT, they said patient okay to come to CT with contrast after having metformin this AM 01/03/22. Pharmacy said to check with prescriber. Dr. Claros said patient okay to go to CT with contrast after taking metformin this AM 01/03/22. Digitally Signed by Macy Bolanos RN on 01/03/2022 04:45 PM [facility] [id number] Cardiology Progress note Date of Service 01/03/22 [...] CELIO CLAROS MD on 01/03/2022 06:35 PM [facility] [id number] Nephrology Progress note Date of Service 01/03/2022 [...] HR: 70(Apical) RR: 18 BP: 145/66 SpO2: 95% WT: 81.5 kg WT: 81.5 kg Physical Exam [...] TAMIKA RODAS MD on 01/03/2022 10:59 AM [facility] [id number] Endocrinology Progress note Date of Service 01/03/22 [...] Glucose, Capillary 01/03/2022 07:10:00 EDT 174 mg/dL [place] 82-115 Glucose Testing Glucose Level 01/03/2022 03:44:00 EDT 157 mg/dL HI 82-115 Glucose Testing Blood Glucose, Capillary 01/02/2022 21:13:00 EDT 222 mg/dL UT 82-115 Glucose Testing Blood Glucose, Capillary 01/02/2022 16:20:00 EDT 247 mg/dL UT 82-115 Glucose Testing Blood Glucose, Capillary 01/02/2022 11:29:00 EDT 177 mg/dL UT 82-115 EKG No qualifying data available. Assessment/Plan [...] Weinstein on 12/24/2021-on prednisone. He resides at [facility] past [facility]. He presented to [facility] on December 30, 2021 due to a sudden onset of alteredmental status and shortness of breath. At [facility], he was noted to have acute kidney injury with creatinine 2.3 and elevated troponin at 3577. EKG revealed normal sinus rhythm without evidenceof ST elevation or depression. Negative for COVID-19 at [facility]. He was transferred to [facility] for further evaluation. Echocardiogram on December 30, 2021 revealed an EF of 45 to 50% and mild MR. Cardiac catheterization completed showing multivessel disease.Cardiothoracic surgery has been consulted for possible surgical myocardial vascularization. Endocrine consult placed by CTS for diabetic management. Longstanding type II diabetic with A1c of 8.4%. Currently residing at [facility] with orders in place for Humalog 32 units with lunch and supper, Toujeo 70 units nightly, sliding scale 3 to 12 units with meals and at bedtime. History of CKD. GFR 44 today. QUIN initially on presentation to . [...] by CASPER MURRY on 01/03/2022 11:17 AM [facility] [id number] Cardiology Progress note Date of Service 01/02/2022 [...] BILL ALMODOVAR MD on 01/02/2022 04:22 PM [facility] [id number] Cardiology Progress note Date of Service 01/02/2022 [...] BILL ALMODOVAR MD on 01/02/2022 04:22 PM [facility] [id number] Endocrinology Progress note Date of Service 01/02/22 [...] Weinstein on 12/24/2021-on prednisone. He resides at [facility] past 3 months. He presented to [facility] on December 30, 2021 due to a sudden onset of alteredmental status and shortness of breath. At [facility], he was noted to have acute kidney injury with creatinine 2.3 and elevated troponin at 3577. EKG revealed normal sinus rhythm without evidenceof ST elevation or depression. Negative for COVID-19 at [facility]. He was transferred to [facility] for further evaluation. Echocardiogram on December 30, 2021 revealed an EF of 45 to 50% and mild MR. Cardiac catheterization completed showing multivessel disease.Cardiothoracic surgery has been consulted for possible surgical myocardial vascularization. Endocrine consult placed by [facility] for diabetic management. Longstanding type II diabetic with A1c of 8.4%. Currently residing at [facility] with orders in place for Humalog [...] same inpatient. Last 24 Hours: Met w/ weigh tank operator; appreciate input and teaching. Current orders are in place for a 2-18 sliding scale with meals and at bedtime alone. Blood glucose this morning with the same 91. Discussed with [facility] MULTIPLE TUBE WINDING MACHINE OPERATOR Katelynn. [facility] work-up continues. No definitive date for CABG. Add low-dose metformin 500 mg twice daily. Hold off on SGLT2 until postop. GLP analog could be considered outpatient. Reintroduction of basal IP as needed. Discussed with bedside RN Will continue to follow while inpatient. Time Spent Total time spent 25 minutes Digitally Signed by CASPER MURRY on 01/02/2022 01:55 PM [facility] [id number] Nurse Progress note A student nurse administered medications and completed assessments on this patient under my supervision this evening. Nayeli Beckham RN Digitally Signed by KAVIN Beckham on 01/02/2022 01:02 AM [facility] [id number] Cardiology Progress note Date of Service 01/01/2022 [...] BILL ALMODOVAR MD on 01/01/2022 08:04 PM [facility] [id number] Cardiology Progress note Date of Service 01/01/2022 [...] BILL ALMODOVAR MD on 01/01/2022 08:04 PM [facility] [id number] Note I saw and evaluated the patient on 01/01/2022. I agree with the NUCLEAR EQUIPMENT SALES ENGINEER note of 12/31/2021. The patient is an [...] TRINY HERNANDEZ MD on 01/01/2022 10:53 AM [facility] [id number] Cardiothoracic surgery Consult note Date of Service [...] Weinstein on 12/24/2021-on prednison. He resides at [facility] for the past 3 months. He presented to [facility] on December 30, 2021 due to a sudden onset of altered mental status and shortness of breath. He endorses nonproductive cough. Denied any chest pain or syncope. At [facility], he was noted to have acute kidney injury with creatinine 2.3 and elevated troponinat 3577. EKG revealed normal sinus rhythm without evidence of ST elevation or depression. Negative for COVID-19 at [facility]. He was transferred to [facility] for further evaluation. Echocardiogram on December 30, 2021 revealed an EF of 45 to 50% and mild MR. Cardiac catheterization completed earlier today showing multivessel disease (official cath report pending at the time of this dictation). Cardiothoracic surgery has been consulted for possible surgical myocardial vascularization. Eliquis was discontinued per retirement reports on September 01, 2021. Patient is [...] follows with Dr. Montgomery of nephrology in [place]. 5. AF (paroxysmal atrial fibrillation) Currently in [...] past medical history from EMR and transfer retirement documentation, conducting sgij-qc-zwin visit with patient at bedside, and dictating [...] Patient denies Living arrangements: Currently lives at [employer] however lived at home prior to Ambulatory [...] 17:21 EDT Digitally Signed by YIMI NEWELL APRN-GURWINDER on 12/31/2021 05:21 PM [facility] [id number] Endocrinology Consult note Date of Service 01/01/22 [...] Weinstein on 12/24/2021-on prednisone. He resides at [facility] forthe past 3 months. He presented to [facility] on December 30, 2021 due to a sudden onset of alteredmental status and shortness of breath. At [facility], he was noted to have acute kidney injury with creatinine 2.3 and elevated troponin at 3577. EKG revealed normal sinus rhythm without evidenceof ST elevation or depression. Negative for COVID-19 at [facility]. He was transferred to [facility] for further evaluation. Echocardiogram on December 30, 2021 revealed an EF of 45 to 50% and mild MR. Cardiac catheterization completed showing multivessel disease.Cardiothoracic surgery hasbeen consulted for possible surgical myocardial vascularization. Endocrine consult placed by [facility] for diabetic management. Blood sugar trends, labs, chart reviewed Patient reports at least a 40-year history of type 2 diabetes. Managed by his PCP. Currently resides at [facility]. He is unable to speak [...] not caring much for the food at [facility]. He reports weight of 156 p [...] thyroid disease but does have orders per [facility] for levothyroxine 50 mcg daily and [...] Subcutaneous, achs, NOW, 0, 01/01/22 8:24:00 EDT [employer] [employer] Diet Consult to Diabetes Education [...] Weinstein on 12/24/2021-on prednisone. He resides at [facility] past [facility]. He presented to [facility] on December 30, 2021 due to a sudden onset of alteredmental status and shortness of breath. At [facility], he was noted to have acute kidney injury with creatinine 2.3 and elevated troponin at 3577. EKG revealed normal sinus rhythm without evidenceof ST elevation or depression. Negative for COVID-19 at [facility]. He was transferred to [facility] for further evaluation. Echocardiogram on December 30, 2021 revealed an EF of 45 to 50% and mild MR. Cardiac catheterization completed showing multivessel disease.Cardiothoracic surgery haspriceen consulted for possible surgical myocardial vascularization. Endocrine consult placed by CTS for diabetic management. Longstanding type II diabetic with A1c of 8.4%. Currently residing at [facility] with orders in place for Humalog [...] by CASPER MURRY on 01/01/2022 03:38 PM [facility] [id number] Nephrology Progress note Date of Service 01/01/2022 [...] TAMIKA RODAS MD on 01/01/2022 09:57 AM [facility] [id number] Nephrology Progress note Date of Service 01/01/2022 [...] TAMIKA RODAS MD on 01/01/2022 09:57 AM [facility] [id number] Cardiothoracic surgery Consult note Date of Service [...] Weinstein on 12/24/2021-on prednison. He resides at [facility] for the past 3 months. He presented to [facility] on December 30, 2021 due to a sudden onset of altered mental status and shortness of breath. He endorses nonproductive cough. Denied any chest pain or syncope. At [facility], he was noted to have acute kidney injury with creatinine 2.3 and elevated troponinat 3577. EKG revealed normal sinus rhythm without evidence of ST elevation or depression. Negative for COVID-19 at [facility]. He was transferred to [facility] for further evaluation. Echocardiogram on December 30, 2021 revealed an EF of 45 to 50% and mild MR. Cardiac catheterization completed earlier today showing multivessel disease (official cath report pending at the time of this dictation). Cardiothoracic surgery has been consulted for possible surgical myocardial vascularization. Eliquis was discontinued per retirement reports on September 01, 2021. Patient is [...] follows with Dr. Montgomery of nephrology in [place]. 5. AF (paroxysmal atrial fibrillation) Currently in [...] past medical history from EMR and transfer retirement documentation, conducting slmf-wh-dwwi visit with patient at bedside, and dictating [...] Patient denies Living arrangements: Currently lives at [facility] however lived at home prior [...] by YIMI NEWELL on 12/31/2021 05:21 PM [facility] [id number] Nephrology Progress note Date of Service 12/31/2021 [...] TAMIKA RODAS MD on 12/31/2021 11:26 AM [facility] [id number] Note ORIGINAL EXAMINATION: ONE XRAY VIEW OF [...] Sign Date: 12/31/2021 8:13:17 AM Ordering Provider: FER AUSTIN [facility] HospitalFfcevepr03-92-1340 History and physical note Date of Service 12/30/2021 Chief Complaint chest pain History of Present Illness This is a 81-year-old male, retirement resident with prior history of atrial fibrillation, type 2diabetes, hypothyroidism, mood disorder, bilateral BKA's, hyperlipidemia who presented to due toaltered mental status. He was there diagnosed with non-ST elevation ME with troponin elevation of 3000 and uptrending. Patient also had an QUIN with creatinine 2.3. Currently patient denies any chest pain or palpitations. He denies prior history of coronary artery disease. However on further questioning does endorse he may have had a left heart catheterization at [facility] 1 year ago. Patient is a poor [...] 36 Hour Lab Data Assessment/Plan Non-ST elevation ME ? history of atrial fibrillation on Eliquis, [...] has history of atrial fibrillation but per retirement has not been on his Eliquis or [...] 30 mg = 3 tab(s), Oral, qDay Toanayeli Max SoloStar 300 units/mL subcutaneous solution 100 [...] DE LEÓN MD on 12/30/2021 10:03 AM [facility] [id number] Evaluation + Plan noteExtracted from: Title:History and Physical Author:HASEEB DE LEÓN MD Date:12/30/21 Non-ST elevation ME ? history of atrial fibrillation on Eliquis, [...] has history of atrial fibrillation but per retirement has not been on his Eliquis or [...] MILL Appointment Type:CV [facility] Hospital Follow Up [facility] 07-14-2022 Nephrology Consult note Date of Service 12/30/2021 Reason for Consultation Stage III CKD, needs clearance for cardiac catheterization. Referring Physician Dr. Hidalgo. History of Present Illness Mr. Modi is a very pleasant 81-year-old gentleman with past medical history of hypertension, diabetes, atrial fibrillation on anticoagulation, hypothyroidism who is a resident of nursing facility in [place]. Patient was sent to [facility] due to altered mental status. He was also having chest pain. Initial lab work done at [facility] showed elevated troponin in the range of 3000.Patient was diagnosed with acute non-STEMI. He was transferred to [facility] for further management. He also had acute renal failure with creatinine of around 2.3 at ER. Repeat blood work in [place] showed that his creatinine has improved to 1.9. Patient does have history of CKD and follows with Dr. Montgomery in [place]. Dr. Montgomery does not have privileges at [facility]. Renal consultation was requested for acute [...] diarrhea, abdominal pain. He has been at retirement in [place] from July 2021. Per family he is going to be at the retirement long-term. Patient developed c hest pain and altered mental status at retirement for which he was sent to ER. Over there he was diagnosed with acute non-STEMI with elevated troponin levels and eventually transferred to [facility]. His home medication list includes JERO inhibitor. [facility] Review of all other systems is negative. [...] baseline creatinine, follows with Dr. Montgomery in [place] Hyperlipidemia Atrial fibrillation Procedure/Surgical History Cardiac catheterization [...] 30 mg= 3 tab(s), Oral, qDay Cade Max SoloStar 300 units/mL subcutaneous solution, 100 [...] TAMIKA RODAS MD on 12/30/2021 11:57 AM [facility] [id number] History and physical note Date of Service 12/30/2021 Chief Complaint chest pain History of Present Illness This is a 81-year-old male, retirement resident with prior history of atrial fibrillation, type 2diabetes, hypothyroidism, mood disorder, bilateral BKA's, hyperlipidemia who presented to due toaltered mental status. He was there diagnosed with non-ST elevation ME with troponin elevation of 3000 and uptrending. Patient also had an QUIN with creatinine 2.3. Currently patient denies any chest pain or palpitations. He denies prior history of coronary artery disease. However on further questioning does endorse he may have had a left heart catheterization at [facility] 1 year ago. Patient is a poor [...] 36 Hour Lab Data Assessment/Plan Non-ST elevation ME ? history of atrial fibrillation on Eliquis, [...] has history of atrial fibrillation but per retirement has not been on his Eliquis or amiodarone. We will for now discontinue amiodarone and continue with metoprolol. Continue heparin for anticoagulation. Continue home medications for chronic medical issues. Problem List/Past Medical History Ongoing No qualifying data Historical No qualifying data Procedure/Surgical History Amputation: 2019 Catheter: 2020 Amputation: 2020 None Medications Home [...] DE LEÓN MD on 12/30/2021 10:03 AM [facility] HospitalKwjbwwgo81-99-1455 Hospital Discharge instructions Follow Up Care 12/30/2021 04:59:03 With:HUNTER FALCON [facility] Address: [address] [place] [address] [address] [facility] [address] [facility] [place] [address]- When:01/17/2022 13:30:00 Comments:please obtain a CXR 1 hour prior to your appt. With:Discharge to [facility] LOC [phone] Address:Unknown When:1-2 days With:KARL HIDALGO MD Address: [facility] [address] [facility] [place] [address]- When:02/15/2022 10:00:00 With:Cardiac Rehab- [facility] Address: [facility] [address] [place] [address]- When: Unknown Comments:The Cardiac Rehab department will call you to schedule you for phase 2. We left you a brochure withinformation about cardiac rehab. If you have any questions please call [phone]. [facility] 08-24-2021 History of Present illness Narrative* Thu Roche RN - 02/09/2021 11:33 AM EDT Discharge instructions given to pt and piano accompanist at bedside. All questions answered. All belongingsat bedside. VSS. Pt resting comfortably, denies pain * Thu Roche RN - 02/09/2021 11:17 AM EDT [facility] * Thu Roche RN - 02/09/2021 11:08 AM EDT residential real estate assistant to bedside * Thu Roche RN - 02/09/2021 11:03 AM EDT Pt arrived to [facility] 42. Attached to property assessment monitor. VSS. residential real estate assistant updated * Lindsey Morales RN - 02/09/2021 8:33 AM EDT Notified anesthesia blood sugar is 284 * Jazmín Burton RN - 02/05/2021 4:[address] Vicente's office called and stated pt should not hold Eliquis nor Aspirin before surgery. Will include on pre-op instructions for facility. documented in this [facility] Work Phone: Anesthesiology Consult note* LINN [...] SIGN Event Display: Anesthesiology Consultation Authored Date: [id number] Patient: ELIZABETH MODI Age: 81 years Sex: [...] 20 mg =, Oral, qDay, 0 Refill(s) Toanayeli Max SoloStar 300 units/mL subcutaneous solution: Dose [...] kidney disease), stage III / SNOMED CT 7756581808 / Confirmed CAD (coronary artery disease) / SNOMED CT 73715834 / Confirmed Diabetes / SNOMED CT 158145042 / Confirmed History of Singh's palsy / SNOMED CT 233997882 / Confirmed HLD (hyperlipidemia) / SNOMED CT 25792662 / Confirmed HTN (hypertension) / SNOMED CT 8337275479 / Confirmed Hypothyroid / SNOMED CT 04963025 / Confirmed QUIN (acute kidney injury) / SNOMED CT 54951690 / Confirmed Mood disorder / SNOMED CT 94741024 / Confirmed NSTEMI (non-ST elevated myocardial infarction) / SNOMED CT 42545591 / Confirmed AF (paroxysmal atrial fibrillation) / SNOMED CT 009072029 / Confirmed PVD (peripheral vascular disease) / SNOMED CT 1794970345 / Confirmed Giant cell arteritis / SNOMED CT 0363090294 / Confirmed, Active Problems (24) AF (paroxysmal atrial fibrillation) QUIN (acute kidney injury) CAD (coronary artery disease) Cataract CKD (chronic kidney disease), stage III COPD (chronic obstructive pulmonary disease) Depression Diabetes DM (diabetes mellitus) Giant cell arteritis Giant cell arteritis syndrome Glasses Heart disease High blood pressure History of Singh's palsy HLD (hyperlipidemia) HTN (hypertension) Hypothyroid Kidney disease ME (myocardial infarction) Mood disorder NSTEMI (non-ST elevated myocardial infarction) PVD (peripheral vascular disease) Tachycardia Histories Past Medical History: No active or resolved past medical history items have been selected or recorded. Family History: No family history items have been selected or recorded. Procedure history: Amputation ([id number]) in 2020 at 79 Years. Comments: 07/12/2021 14:23 Maria Esther Navarro RN Left below the knee Amputation ([id number]) in 2020 at 79 Years. Comments: 07/12/2021 14:24 Maria Esther Navarro RN right below the knee amputation Catheter ([id number]) in 2020 at 79 Years. Comments: 07/12/2021 14:25 EST - Leiendecker, Maria Esther N RN Temporary dialysis cath None ([id number]). 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 No Communications Consultant On Yes Patient Dressed In Hospital gown [...] On and Limits Checked Nail Bed Color Collbran Capillary Refill < 2 seconds Heart Sounds [...] Warm Temperature All Extremities Warm Skin Description Collbran, Normal for ethnicity, Dry Skin Integrity Pressure points intact Skin Turgor Elastic Mucous Membrane Color Collbran Mucous Membrane Description Moist Sensory Perception Dre [...] Rhythm Sinus rhythm Monitoring Lead II, V1/MCL1 NE Interval 0.17 second(s) QRS Duration 0.12 second(s) [...] Transport Mode Order Detail MTT with Monitor Abrasive Grinder Details Form Abrasive Grinder Details Form 01/05/2022 0:28 EDT Skin Assessment [...] Transport Mode Order Detail MTT with Monitor Abrasive Grinder Details Form Abrasive Grinder Details Form 01/04/2022 23:29 EDT heparin Begin [...] On and Limits Checked Nail Bed Color Collbran Capillary Refill < 2 seconds Heart Sounds ICU S1S2 Heart Rhythm Regular Radial Pulse, Left 2+ Normal Radial Pulse, Right 2+ Normal Popliteal Pulse, Left 1+ Thready Popliteal Pulse, Right 1+ Thready Edema Generalized None Cardiac Rhythm Sinus rhythm Monitoring Lead II, V1/MCL1 NE Interval 0.18 second(s) QRS Duration 0.12 second(s) QT Interval 0.47 second(s) QTc Interval 0.48 second(s) Alarms On and Functional Yes Respirations Unlabored Respiratory Pattern Regular Breath Sounds Auscultated Anterior only All Lobes Breath Sounds Clear Oxygen Therapy Room air Abdomen Description Non-distended, Symmetric, Soft Abdomen Palpation Non-Tender Bowel Sounds All Quadrants Present Urinary Elimination Voiding, no difficulties All Extremity Description Collbran, Normal for ethnicity Skin Temperature Warm Temperature All Extremities Warm Skin Description Collbran, Normal for ethnicity Mucous Membrane Color Collbran Mucous Membrane Description Moist Leg Bilateral Skin [...] On and Limits Checked Nail Bed Color Collbran Capillary Refill < 2 seconds Heart Sounds ICU S1S2 Heart Rhythm Regular Radial Pulse, Left 2+ Normal Radial Pulse, Right 2+ Normal Popliteal Pulse, Left 1+ Thready Popliteal Pulse, Right 1+ Thready Edema Generalized None Cardiac Rhythm Sinus rhythm Monitoring Lead II, V1/MCL1 NE Interval 0.19 second(s) QRS Duration 0.12 second(s) [...] Facial Movement Symmetric resting/crying All Extremity Description Collbran, Normal for ethnicity Skin Temperature Warm Temperature All Extremities Warm Skin Description Collbran, Normal for ethnicity Skin Integrity Pressure points intact Skin Turgor Elastic Mucous Membrane Color Collbran Mucous Membrane Description Moist Sensory Perception Dre [...] Symptoms Bruising Skin Temperature Warm Skin Description Collbran, Normal for ethnicity Skin Integrity Intact Skin Turgor Elastic Mucous Membrane Color Collbran Mucous Membrane Description Moist Sensory Perception Dre [...] On and Limits Checked Nail Bed Color Collbran Capillary Refill < 2 seconds Heart Sounds [...] Facial Movement Symmetric resting/crying All Extremity Description Collbran, Normal for ethnicity Skin Temperature Warm Temperature All Extremities Warm Skin Description Collbran, Normal for ethnicity Skin Integrity Pressure points intact Skin Turgor Non-Elastic Mucous Membrane Color Collbran Mucous Membrane Description Moist Leg Bilateral Skin [...] Rhythm Sinus rhythm Monitoring Lead III, V1/MCL1 NE Interval 0.20 second(s) QRS Duration 0.09 second(s) [...] mEq predniSONE 10 mg mg vitamin A 93632 unit(s) unit(s) 01/04/2022 8:39 EDT Heart Rate Monitored 59 bpm LOW Reason For Taking VItal Signs Routine Primary Pain Intensity 0 Primary Pain Nonverbal Response Nods No Pain Scale Type 0-10 Pain scale Monitor Alarms On and Limits Checked Nail Bed Color Collbran Capillary Refill < 2 seconds Heart Sounds [...] Facial Movement Symmetric resting/crying All Extremity Description Collbran, Normal for ethnicity Skin Temperature Warm Temperature All Extremities Warm Skin Description Collbran, Normal for ethnicity Skin Integrity Pressure points intact Skin Turgor Non-Elastic Mucous Membrane Color Collbran Mucous Membrane Description Moist Leg Bilateral Wound [...] Transport Mode Order Detail MTT with Monitor Abrasive Grinder Details Form Abrasive Grinder Details Form 01/04/2022 7:11 EDT Blood Glucose, [...] Rhythm Sinus rhythm Monitoring Lead III, V1/MCL1 NE Interval 0.18 second(s) QRS Duration 0.09 second(s) [...] Type 0-10 Pain scale Nail Bed Color Collbran Capillary Refill < 2 seconds Heart Sounds [...] Facial Movement Symmetric resting/crying All Extremity Description Collbran, Normal for ethnicity Skin Temperature Warm Temperature All Extremities Warm Skin Description Normal for ethnicity Skin Integrity Pressure points intact Skin Turgor Non-Elastic Mucous Membrane Color Collbran Mucous Membrane Description Moist Leg Bilateral Skin [...] Rhythm Sinus rhythm Monitoring Lead III, V1/MCL1 NE Interval 0.20 second(s) QRS Duration 0.09 second(s) [...] Light Use Yes . Assessment and Plan [place] [employer] Anesthesiologists (ASA) physical status classification: [...] LINN RICHARD DO on 01/05/2022 07:59 AM [facility] Evaluation + Plan note Future Appointments Appointment Date:02/07/2022 01:00:00 PM Scheduled Provider:HUNTER FALCON Location:[facility] Appointment Type:CTS OV Post Op Follow Up Appointment Date:02/15/2022 10:00:00 AM Scheduled Provider: Location:[facility] Appointment Type:CV Hospital Follow Up Future Scheduled Tests Radiology* XR Chest 2 Views (PA & Lateral) 02/07/22 [facility] Evaluation note* Diagnosis Optic nerve edema- Primary Papilloedema, unspecified [facility] Diagnosis Vision changes- Primary Unspecified visual disturbance Photosensitivity Acute dermatitis due to solar radiation PVD (peripheral vascular disease) (HCC) Peripheral vascular disease, unspecified Type 2 diabetes mellitus with other specified complication, without long-term current use of insulin (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 Encounter for long-term (current) use of steroids Vitamin D deficiency Unspecified vitamin D deficiency documented in this encounter [facility] note* Diagnosis Onset Date Resolution Status Renal mass acute Calculous cholecystitis with obstruction resolved Choledocholithiasis resolved Cholecystostomy care acute Renal mass acute [facility] Work Phone: Evaluation note* Diagnosis Onset Date Resolution Status Renal mass acute Calculous cholecystitis with obstruction resolved Choledocholithiasis resolved Cholecystostomy care acute Renal mass acute Cholecystostomy care [facility] Work Phone: Evaluation note* Diagnosis Screening for genitourinary condition- Primary Screening for other and unspecified genitourinary condition Gross hematuria Left renal mass Unspecified disorder of kidney and ureter documented in this encounter [facility] note* Diagnosis Gross hematuria documented in this encounter [facility] note* Diagnosis Gross hematuria- Primary Screening for genitourinary condition Screening for other and unspecified genitourinary condition documented in this encounter [facility] note* Diagnosis Gross hematuria- Primary documented in this encounter [facility] note* Diagnosis Gross hematuria- Primary Left renal mass Unspecified disorder of kidney and ureter documented in this encounter [facility] noteNo assessment information [facility] Work Phone: Hospital course Narrative No data available for this section [facility] Hospital Discharge instructions* Instructions* Ammy Vicente [...] next day as directed. documented in this [facility] Work Phone: Hospital Discharge instructions No data available for this section [facility] Progress note No data available for this section [facility] Reason for referral (narrative)No reason for referral [facility] Work Phone: Summary Purpose Family History Relationship Condition Age at Onset Recorded Date/T jay mother Diabetes mellitus Unknown father Diabetes mellitus Unknown Cardiac disease Unknown Advance Directives Latest Code Status on File Code Status Date Activated Date Inactivated Comments Full Code 02/09/2021 11:01 AM Full Code 02/09/2021 8:14 AM 02/09/2021 11:01 AM Documents on File Type Date Recorded 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 Yes January 11, 2024 7:47am Advance Directive Response Recorded Date/ Time Do you have a Healthcare Power of Improvement Director? Yes October 15, 2024 5:49pm Name of Medical Power of Improvement Director angelic sue leeanna October 15, 2024 5:49pm Hospital Course Note HNO ID: [id number] Author: Emily baltazar (Cassia Prescott DO Service: [...] (more content not included)... Note HNO ID: [id number] Author: Teo chase (Res) DO Roger Service: [...] W/WO CONTRST 1+ BODY Nikolai Fisher PA-C [id number] [place] [address] [address] [facility] [place] [address] Referral ID Status Reason Start Date Expiration Date Visits Requested Visits Authorized [id number] Authorized Auto-Generat ed Referral 06/25/2024 07/18/2025 1 1 Specialty Diagnoses / Procedures Referred By Contac t Referred To Contact Ophthalmology Diagnoses Vision changes Photosensitivity Procedures CONSULT TO OPHTHALMOLOGY OFFICE/OUTPATIENT [facility] 60-74 MINUTES Shana Ga MD [address] [id number] Referral ID Status Reason Start Date Expiration Date Visits Requested Visits Authorized [id number] Authorized PCP Requested Referral 09/01/2022 09/01/2023 1 [...] 3 M FU June 06, 2024 3:30pm JAIL LAB WORK June 17 1:00pm NEW CONCERN June 17, 2024 3:17pm LABWORK June 20, 2024 5: 00am JAIL LAB WORK June 27, 2024 5:50am MONTHLY EXAM July 05, 2024 3 :48pm MONTHLY EXAM July 23, 2024 4 :43pm JAIL LAB WORK July 24, 2024 4:00am LABWORK August 01, 2024 2:00pm LABWORK August 21, 2024 5:00 am 4 M FU September 06, 2024 1:3 8pm Reason for Visit Admit Date Fecal incontinence June 06, 2024 3:30pm S/P ERCP June 06, 2024 3:30pm Fecal incontinence September 06, 2024 1:3 8pm S/P ERCP September 06, 2024 1:3 8pm Chief Complaint Admit Date JAIL LAB WORK June 17 1:00pm NEW CONCERN June 17, 2024 3:17pm LABWORK June 20, 2024 5: 00am JAIL LAB WORK June 27, 2024 5:50am MONTHLY EXAM July 05, 2024 3 :48pm MONTHLY EXAM July 23, 2024 4 :43pm JAIL LAB WORK July 24, 2024 4:00am LABWORK [...] Date LABWORK June 20, 2024 5: 00am JAIL LAB WORK June 27, 2024 5:50am MONTHLY EXAM July 05, 2024 3 :48pm MONTHLY EXAM July 23, 2024 4 :43pm JAIL LAB WORK July 24, 2024 4:00am LABWORK August 01, 2024 2:00pm LABWORK August 21, 2024 5:00 am MONTHLY EXAM September 03, 2024 6:1 1pm NEW CONCERN September 05, 2024 1:1 5pm 4 M FU September 06, 2024 1:3 8pm LABWORK September 18, 2024 5:00 am fall October 15, 2024 3:5 7pm Chief Complaint Admit Date MONTHLY EXAM July 23, 2024 4 :43pm JAIL LAB WORK July 24, 2024 4:00am LABWORK August 01, 2024 2:00pm LABWORK August 21, 2024 5:00 am MONTHLY EXAM September 03, 2024 6:1 1pm NEW CONCERN September 05, 2024 1:1 5pm 4 M FU September 06, 2024 1:3 8pm LABWORK September 18, 2024 5:00 am fall October 15, 2024 3:5 7pm FU NH WANTED SOONER THAN DECEMBER SO DIDN'T WANT 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 October 16, 2024 7:59am LABWORK October 23, 2024 5:00am Reason for Visit Admit Date Fecal incontinence September 06, 2024 1:3 8pm S/P ERCP September 06, 2024 1:3 8pm Atherosclerotic heart diseas e of [place] coronary artery without angina pectoris October 16, [...] WANTED SOONER THAN DECEMBER SO DIDN'T WANT 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 SERVICER October 16, 2024 7:59am LABWORK October 23, 2024 5:00am JAIL LAB WORK November 07, 2024 5:0 0am [...] WANTED SOONER THAN DECEMBER SO DIDN'T WANT 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 SERVICER October 16, 2024 7:59am LABWORK October 23, 2024 5:00am JAIL LAB WORK November 07, 2024 5:0 0am LABWORK November 20, 2024 5:00a m Chief Complaint Admit Date LABWORK September 18, 2024 5:00 am Monthly Exam September 24, 2024 3:41 pm New Concern October 01, 2024 3:2 5pm fall October 15, 2024 3:5 7pm FU NH WANTED SOONER THAN DECEMBER SO DIDN'T WANT 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 SERVICER October 16, 2024 7:59am LABWORK October 23, 2024 5:00am JAIL LAB WORK November 07, 2024 5:0 0am LABWORK November 20, 2024 5:00a m MONTHLY EXAM December 03, 2024 3:30 pm LABWOKR December 18, 2024 5:00a m Reason for Visit Admit Date Atherosclerotic heart diseas e of [place] coronary artery without angina pectoris October 16, 2024 7:59am Essential hypertension October 16, 2024 7:59am Hyperlipidemia October 16, 2024 7:5 9am Paroxysmal atrial fibrillation September 7:59am Chief Complaint Admit Date fall October 15, 2024 3:5 7pm FU NH WANTED SOONER THAN DECEMBER SO DIDN'T WANT 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 SERVICER October 16, 2024 7:59am LABWORK October 23, 2024 5:00am JAIL LAB WORK November 07, 2024 5:0 0am LABWORK November 20, 2024 5:00a m MONTHLY EXAM December 03, 2024 3:30 pm LABWOKR December 18, 2024 5:00a m Monthly Exam December 24, 2024 5:38p m Chief Complaint Admit Date LABWORK October 23, 2024 5:00am JAIL LAB WORK November 07, 2024 5:0 0am LABWORK November 20, 2024 5:00a m MONTHLY EXAM December 03, 2024 3:30 pm LABWOKR December 18, 2024 5:00a m Monthly Exam December 24, 2024 5:38p m JAIL LAB WORK January 20, 2025 5 :00am JAIL LAB WORK January 22, 2025 5 :00am JAIL LAB WORK January 28, 2025 5:00am MONTHLY EXAM January 28, 2025 4: 15pm JAIL LAB WORK February 04, 2025 4:00am Additional Source Comments (unrecognized sect ion and content) No Status Records FoundNo Status Records FoundNo Status Records FoundNo Status Records FoundNo Status Records FoundNo Status Records FoundNo Status Records FoundNo Status Records FoundNo Status Records FoundNo Status Records FoundNo Status Records Found INFORMATION SOURCE (unrecogn ized section and content) DATE CREATED AUTHOR 05/19/2020 [facility] DATE CREATED AUTHOR AUTHOR'S ORGANIZ ATION 05/21/2020 [facility] DATE CREATED AUTHOR AUTHOR'S ORGANIZ ATION 02/11/2021 [facility] DATE CREATED AUTHOR AUTHOR'S ORGANIZ ATION 08/05/2021 [facility] DATE CREATED AUTHOR AUTHOR'S ORGANIZ ATION 09/07/2021 [facility] DATE CREATED AUTHOR AUTHOR'S ORGANIZ ATION 04/15/2023 [facility] DATE CREATED AUTHOR AUTHOR'S ORGANIZ ATION 01/11/2024 [facility] ([place]) DATE CREATED AUTHOR AUTHOR'S ORGANIZ ATION 10/06/2024 [facility] DATE CREATED AUTHOR AUTHOR'S ORGANIZ ATION 01/15/2025 [facility] DATE CREATED AUTHOR AUTHOR'S ORGANIZ ATION 01/21/2025 [facility] DATE CREATED AUTHOR AUTHOR'S ORGANIZ ATION 02/12/2025 [facility] Scheduled Active and Recently Administ ered [...] RN)09 (Given - Provider: Lindsey Morales RN) sodium [...] Lindsey Morales RN)0921 (Given - Provider: Lindsey Morales, RN)0925 (Given - Provider: Lindsey Morales, KAVIN) Continuous Medication Order 02/07/2021 02/08/2021 02/09/2021 lactated [...] 0920 (Given - Provid er: Lindsey Morales, KAVIN)1128 (Given - Provider: Thu Roche RN - [...] or prosecute any alcohol or drug abuse patient.[facility] Center[facility] the event this information is protected by the Federal Confidentiality of Alcohol and Drug Abuse Patient Records regulations: The Federal rules restrict any use of the information to criminally investigate or prosecute any alcohol or drug abuse patient.[facility] Center[facility] the event this information is protected by the Federal Confidentiality of Alcohol and Drug Abuse Patient Records regulations: The Federal rules restrict any use of the information to criminally investigate or prosecute any alcohol or drug abuse patient.[facility] Center[facility] the event this information is protected by the Federal Confidentiality of Alcohol and Drug Abuse Patient Records regulations: The Federal rules restrict any use of the information to criminally investigate or prosecute any alcohol or drug abuse patient.[facility] Center[facility] the event this information is protected by the Federal Confidentiality of Alcohol and Drug Abuse Patient Records regulations: The Federal rules restrict any use of the information to criminally investigate or prosecute any alcohol or drug abuse patient.[facility] CenterIn the event this information is protected by the Federal Confidentiality of Alcohol and Drug Abuse Patient Records regulations: The Federal rules restrict any use of the information to criminally investigate or prosecute any alcohol or drug abuse patient.[facility] Center[facility] the event this information is protected by the Federal Confidentiality of Alcohol and Drug Abuse Patient Records regulations: The Federal rules restrict any use of the information to criminally investigate or prosecute any alcohol or drug abuse patient.[facility] Center[facility] the event this information is protected by the Federal Confidentiality of Alcohol and Drug Abuse Patient Records regulations: The Federal rules restrict any use of the information to criminally investigate or prosecute any alcohol or drug abuse patient.[facility] CenterIn the event this information is protected by the Federal Confidentiality of Alcohol and Drug Abuse Patient Records regulations: The Federal rules restrict any use of the information to criminally investigate or prosecute any alcohol or drug abuse patient.[facility] CenterIn the event this information is protected by the Federal Confidentiality of Alcohol and Drug Abuse Patient Records regulations: The Federal rules restrict any use of the information to criminally investigate or prosecute any alcohol or drug abuse patient.[facility] Center[facility] the event this information is protected by the Federal Confidentiality of Alcohol and Drug Abuse Patient Records regulations: The Federal rules restrict any use of the information to criminally investigate or prosecute any alcohol or drug abuse patient.[facility] Center[facility] the event this information is protected by the Federal Confidentiality of Alcohol and Drug Abuse Patient Records regulations: The Federal rules restrict any use of the information to criminally investigate or prosecute any alcohol or drug abuse patient.[facility] CenterIn the event this information is protected by the Federal Confidentiality of Alcohol and Drug Abuse Patient Records regulations: The Federal rules restrict any use of the information to criminally investigate or prosecute any alcohol or drug abuse patient.[facility] CenterIn the event this information is protected by the Federal Confidentiality of Alcohol and Drug Abuse Patient Records regulations: The Federal rules restrict any use of the information to criminally investigate or prosecute any alcohol or drug abuse patient.[facility] Care Teams (unrecognized sec tion and content) [...] 2024 End: September 03, 2024 Christina Whipple MULTIPLE TUBE WINDING MACHINE OPERATOR, MULTIPLE TUBE WINDING MACHINE OPERATOR-C Attending Provider Active Start: September 03, 2024 End: September 03, 2024 Team Status: Inactive Member Role Status Dates Dr. Diana Salmeron MD Primary Care Provider Active Start: September 05, 2024 End: September 05, 2024 Christina Whipple MULTIPLE TUBE WINDING MACHINE OPERATOR, MULTIPLE TUBE WINDING MACHINE OPERATOR-C Attending Provider Active Start: September 05, 2024 [...] Care Provider Active Start: November 07, 2024 TOM ClemonsC Attending Provider Active Start: November 07, 2024 Team Status: Active Member Role Status Dates Dr. Diana Salmeron MD Primary Care Provider Active Start: June 17, 2024 Victor M DAVID MD Attending Provider Active Start: June 17, 2024 Team Status: Inactive Member Role Status Dates Dr. Diana Salmeron MD Primary Care Provider Active Start: June 17, 2024 End: June 17, 2024 Christina Whipple NP MULTIPLE TUBE WINDING MACHINE OPERATOR-C Attending Provider Active Start: June 17, 2024 [...] 2024 End: July 05, 2024 Christina Whipple NP MULTIPLE TUBE WINDING MACHINE OPERATOR-C Attending Provider Active Start: July 05, 2024 End: July 05, 2024 Battery Service Technician Relationship Specialty Start Date End Date Dextre Reyes Chi [address] [facility] [address] [place] [address] PCP - General Gerontology 12/06/19 Ryan Rodrigues MD [address] [facility] [place] [place] [id number] Infectious Diseases 12/06/19 Yadi White DO [address] [facility] [place] [address] Urology 04/28/20 Battery Service Technician Relationship Specialty Start Date End Date Diana Salmeron MD [address] [facility] [place] [address] PCP - General Internal Medicine 09/01/22 Ryan Rodrigues MD [address] [facility] [place] [address] Infectious Diseases 12/06/19 Yadi White, [address] [facility] [place] [address] Urology 04/28/20 Isac Lucas [address] [place] [address] Referring Ophthalmology 06/27/22 Battery Service Technician Relationship Specialty Start Date End Date Diana Salmeron MD [address] [place] [address] PCP - General Internal Medicine 09/01/22 Ryan Rodrigues MD [address] [facility] [place] [address] Infectious Diseases 12/06/19 Yadi White, DO [address] [facility] [place] [address] Urology 04/28/20 Isac Lucas [address] [place] [address] Referring Ophthalmology 06/27/22 Battery Service Technician Relationship Specialty Start Date End Date Diana Salmeron MD [address] [place] [address] PCP - General Internal Medicine 09/01/22 Ryan Rodrigues MD Counts include 234 beds at the [facility] [place] [id number] Infectious Diseases 12/06/19 Yadi White, DO [address] [place], [place] [address] Urology 04/28/20 Isac Lucas [address] [place] [address] Referring Ophthalmology 06/27/22 Team Status: Active Member [...] Status: Active Member Role Status Dates Dr. Dextre Reyes MD Primary Care Provider Active Dr. [...] MD Attending Provider, Referring P rovider Active Battery Service Technician Relationship Specialty Start Date End Date Diana Salmeron MD [address] [address] [facility] [place] [address] PCP - General Internal Medicine 09/01/22 Ryan Rodrigues MD [address] [place] [address] Infectious Diseases 12/06/19 Yadi White DO [address] [place] [address] Urology 04/28/20 Isac Lucas [address] [place], [place] [address] Referring Ophthalmology 06/27/22 Battery Service Technician Relationship Specialty Start Date End Date Diana Salmeron MD [address] [place], [place] [address] PCP - General Internal Medicine 09/01/22 Ryan Rodrigues MD [address] [place] [address] Infectious Diseases 12/06/19 Yadi White DO [address] [place] [address] Urology 04/28/20 sIac Lucas [address] [place] [address] Referring Ophthalmology 06/27/22 Battery Service Technician Relationship Specialty Start Date End Date Diana Salmeron MD [address] [address] PCP - General Internal Medicine 09/01/22 Ryan Rodrigues MD [address] [place] [address] Infectious Diseases 12/06/19 Yadi White DO [address] [place] [address] Urology 04/28/20 Isac Lucas [address] [place], [place] [address] Referring Ophthalmology 06/27/22 Battery Service Technician Relationship Specialty Start Date End Date Diana Salmeron MD [address] [place], [place] [address] PCP - General Internal Medicine 09/01/22 Ryan Rodrigues MD [address] [place] [address] Infectious Diseases 12/06/19 Yadi White DO [address] [place], [place] [address] Urology 04/28/20 Isac Lucas [address] [place], [place] [address] Referring Ophthalmology 06/27/22 Battery Service Technician Relationship Specialty Start Date End Date Diana Salmeron MD [address] [place], [place] [address] PCP - General Internal Medicine 09/01/22 Ryan Rodrigues MD [address] [place] [address] Infectious Diseases 12/06/[place] [address] [place] [address] Urology 04/28/20 Isac Lucas [address] [place] [address] Referring Ophthalmology 06/27/22 Team Status: Inactive Member [...] Attending Provider Active Start: September 18, 2024 Battery Service Technician Relationship Specialty Start Date End Date Diana Salmeron MD [address] [facility] [place] [address] PCP - General Internal Medicine 09/01/22 Ryan Rodrigues MD [address] [facility] [place] [address] Infectious Diseases 12/06/19 Yadi White DO [address] [place] [id number] Urology 04/28/20 Isac Lucas [address] [place], [place] [address] Referring Ophthalmology 06/27/22 Battery Service Technician Relationship Specialty Start Date End Date Diana Salmeron MD [address] [place] [address] PCP - General Internal Medicine 09/01/22 Ryan Rodrigues MD [address] [place] [phone] Infectious Diseases 12/06/19 Yadi White DO [address] [place] [address] Urology 04/28/20 Isac Lucas [address] [place] [address] Referring Ophthalmology 06/27/22 Team Status: Inactive Member [...] End: October 01, 2024 Christina Whipple NP MULTIPLE TUBE WINDING MACHINE OPERATOR-C Attending Provider Active Start: October 01, 2024 [...] 2024 End: September 03, 2024 Christina Whipple NP MULTIPLE TUBE WINDING MACHINE OPERATOR-C Attending Provider Active Start: September 03, 2024 End: September 03, 2024 Team Status: Inactive Member Role/Relationship Status Dates Dr. Diana Salmeron MD Primary Care Provider Active Start: September 05, 2024 End: September 05, 2024 Christina Whipple MULTIPLE TUBE WINDING MACHINE OPERATOR, MULTIPLE TUBE WINDING MACHINE OPERATOR-C Attending Provider Active Start: September 05, 2024 [...] 2024 End: October 01, 2024 Christina Whipple MULTIPLE TUBE WINDING MACHINE OPERATOR, MULTIPLE TUBE WINDING MACHINE OPERATOR-C Attending Provider Active Start: October 01, 2024 [...] November 07, 2024 End: November 07, 2024 TOM ClemonsC Attending Provider Active Start: November 07, 2024 End: November 07, 2024 Team Status: Active Member Role/Relationship Status Dates Dr. Diana Salmeron MD Primary Care Provider Active Start: November 20, 2024 Victor M DAVID MD Attending Provider Active Start: November 20, 2024 Team Status: Inactive Member Role/Relationship Status Dates Dr. Daina Salmeron MD Primary Care Provider Active Start: September 18, 2024 End: September 18, 2024 Victor M DVAID MD Attending Provider Active Start: September 18, [...] End: October 01, 2024 Christina Whipple NP MULTIPLE TUBE WINDING MACHINE OPERATOR-C Attending Provider Active Start: October 01, 2024 End: October 01, 2024 Team Status: Inactive Member Role/Relationship Status Dates Dr. Diana Salemron MD Primary Care Provider Active Start: October [...] 2024 End: November 07, 2024 Christina DAVID NP-Jamar Attending [...] Attending Provider Active Start: December 18, 2024 Battery Service Technician Relationship Specialty Start Date End Date Diana Salmeron MD [address] [place] [address] PCP - General Internal Medicine 09/01/22 Ryan Rodrigues MD Counts include 234 beds at the [facility] [address] [facility] [place] [phone] Infectious Diseases 12/06/19 Yadi White DO [address] [place] [address] Urology 04/28/20 Isac Lucas [address] [place] [address] Referring Ophthalmology 06/27/22 Team Status: Inactive Member [...] December 24, 2024 End: December 24, 2024 TOM Malloy NPC Attending Provider Active Start: December 24, 2024 [...] Attending Provider Active Start: January 28, 2025 Team Status: Inactive Member Role/Relationship Status Dates [...] 2024 End: December 24, 2024 Christina Whipple NP, MULTIPLE TUBE WINDING MACHINE OPERATOR-C Attending Provider Active Start: December 24, 2024 [...] Attending Provider Active Start: January 28, 2025 Team Status: Inactive Member Role/Relationship Status Dates Dr. Diana Salmeron MD Primary Care Provider Active Start: January 28, 2025 End: January 28, 2025 Dr. Victor M Rojas MD Attending Provider Active Start: January 28, 2025 End: January 28, 2025 Team Status: Active Member Role/Relationship Status Dates Dr. Diana Salmeron MD Primary Care Provider Active Start: February 04, 2025 Victor M DAVID MD Attending Provider Active Start: February 04, 2025 Victor M DAVID MD Referring Provider Active Start: February 04, 2025 Team Status: Active Member Role/Relationship Status Dates Dr. Diana Salmeron MD Primary Care Provider Active Start: February 11, 2025 Victor M DAVID MD Attending Provider Active Start: February 11, 2025 Care Team (unrecognized sect ion and content) Care Team Related Persons Name: ANGELIC SUE Care Team Personnel Name: DIANA SALMERON MD Med Service: Internal Medicine Member Role: Primary Care Physician Address: Address: [address] [place] [address] Care Team Related Persons Name: JODY ANGELIC Reason for Visit (unrecogniz ed section [...] W/WO CONTRST 1+ BODY Nikolai Fisher PA-C [address] [place] [id number] [facility] [place] [address] Referral ID Status Reason Start Date Expiration Date V isits Requested Visits Authorized [id number] Closed Auto-Generate d Referral 06/25/2024 07/18/2025 1 [...] BE BASED ON THE PRIMARY CLINICAL RECORDS. [employer] provides no warranty or guarantee of the accuracy or completeness of information in this document.
[2025-02-19 08:16] LABS: Albumin, Serum 3.4 g/dL (3.4-4.8); Anion Gap 13 (5-15); BUN 36 mg/dL (4-19); BUN/Creat Ratio 23.2 RATIO (10-20); Calcium,Total 8.5 mg/dL (7.6-11.0); Carbon Dioxide 17.5 mmol/L (21.0-32.0); Chloride 106 mmol/L (98-108); Glucose 135 mg/dL (70-99); Potassium 4.3 mmol/L (3.3-5.1)
== END ==
LOC: OLS.WHLEAS 05:00
PROVIDERS: PCP Internal Medicine; Visit Provider Internal Medicine
DX: E11.22 Type 2 diabetes mellitus with diabetic chronic kidney disease (principal); N18.9 Chronic kidney disease, unspecified; J96.11 Chronic respiratory failure with hypoxia; E11.40 Type 2 diabetes mellitus with diabetic neuropathy, unspecified
CPT/HCPCS: 36415; 80069

== ENCOUNTER → 2025-03-19 06:30 | Outpatient (REF) | payer MEDICARE, MEDICAID, SELFPAY ==
[2025-03-19 09:46] LABS: Hematocrit 41.7 % (40-54); Hemoglobin 13.8 g/dL (13.0-16.5); Mean Corp Hgb Conc 33.1 g/dL (32-36); Mean Corpuscular Volume 87.4 fL (80-94); Mean Platelet Vol. 11.9 fl (6.2-12.0); Platelet Count 202 K/mm3 (150-450); RBC Distribution Width CV 14.6 % (11.6-14.6); RBC Distribution Width SD 46.6 fl (35.1-43.9); Red Blood Count 4.77 M/mm3 (4.6-6.2); White Blood Count 8.2 K/mm3 (4.4-11.0)
[2025-03-19 10:46] LABS: AST(SGOT) 22 U/L (<=37); Alanine Aminotransfer ALT/SGPT 14 U/L (<=46); Albumin, Serum 3.2 g/dL (3.4-4.8); Alkaline Phosphatase 148 U/L (40-129); Anion Gap 13 (5-15); BUN 26 mg/dL (4-19); BUN/Creat Ratio 19.2 RATIO (10-20); Calcium,Total 8.0 mg/dL (7.6-11.0); Carbon Dioxide 18.6 mmol/L (21.0-32.0); Chloride 108 mmol/L (98-108); Cholesterol 80 mg/dL (<=200); Globulin 3.2 g/dL (2.2-4.2); Glucose 104 mg/dL (70-99); Low Density Lipoprotein Calc. 41 mg/dL; Potassium 4.3 mmol/L (3.3-5.1); Triglycerides 92 mg/dL; Very Low Density Lipoprotein 18 mg/dL (5-40); cholesterol:hdl ratio screen 3.95
== END ==
LOC: OLS.WHLEAS 06:30
PROVIDERS: PCP Internal Medicine; Visit Provider Internal Medicine
DX: J96.11 Chronic respiratory failure with hypoxia (principal); E11.40 Type 2 diabetes mellitus with diabetic neuropathy, unspecified; F03.90 Unspecified dementia, unspecified severity, without behavioral disturbance, psychotic disturbance, mood disturbance, and anxiety
CPT/HCPCS: 36415; 80053; 80061; 83036; 84100; 84443; 85027

== ENCOUNTER → 2025-04-23 | Outpatient (REF) | payer MEDICARE, MEDICAID, SELFPAY ==
--- OUTSIDE RECORDS SUMMARY | 2025-04-23 05:05 | XMS RPT_ITS | CCD ---
Author Organization [facility] Care Team Providers Care Trans Router Name Role Phone Eric LATHAM, Papa Primary Care Provider ERIC DEXTER-CHI Primary Care Unavailable HUMA MARIO Referring Unavailable MARIO FINN Attending Unavailable ERIC, DEXTER-CHI Primary Care Unavailable YUSUF COOPER Attending Unavailable ERIC, DEXTER-CHI Referring Unavailable ERIC, DEXTER-CHI Referring Unavailable ERIC, DEXTER-CHI Primary Care Unavailable MARIO FINN Attending Unavailable Eric, Dexter Chi Primary Care Provider [phone] Ryan Rodrigues MD Unavailable Yadi White DO Unavailable DR DIANA SALMERON MD Primary Care Physician [phone] Ryan Rodrigues MD Unavailable Ruben White DOyrgracia Unavailable [phone] Isac Lucas Unavailable Diana Salmeron MD Primary Care Provider Dr. Dexter Reyes Chi Primary Care Provider [phone] Dr. Bren Lopes Admit Provider Dr. Bren Lopes Other Provider Dr. Dwayne Palumbo Other Provider Dr. Jesse Haywood Attending Provider Dr. Jesse Haywood Other Provider Dr. Dwayne Palumbo Attending Provider [phone] Friend, Dr. Sauceda Attending Provider Dr. Jesse [...] Rojas MD Attending Provider Unavaila ble Tickton CEMETERY VAULT INSTALLER-C, Christina Attending Provider Dr. Victor M Rojas [...] Rojas MD Attending Provider Unavaila ble [place]ton CEMETERY VAULT INSTALLER-C, Christina Attending Provider Dr. Jesse Angel DO Emergency Provider Dr. Diana Salmeron MD Primary Care Provider Victor M Rojas MD Attending Provider Unavaila ble Sole CEMETERY VAULT INSTALLER-C, Christina Attending Provider Dr. Jesse Angel DO Attending Provider Foster GARLAND, Lauren Bryan Attending Provider Sole CEMETERY VAULT INSTALLER-C, Christina Attending Provider Dr. Diana Salmeron MD Primary Care Provider Victor M Rojas MD Attending Provider UnavailDr. Victor M Meneses MD Attending Provider Dr. Diana Salmeron MD Primary Care Provider Victor M Rojas MD Attending Provider Unavaila silvano Whipple CEMETERY VAULT INSTALLER-C, Christina Attending Provider Dr. Diana Salmeron MD Referring Provider GAYLA CLINE Attending Unavailable LATOUF, BUTROS Primary Care Unavailable ERIC MONTGOMERY I Attending Unavailable DIANA SALMERON MD Consulting Unavailable ERIC MONTGOMERY I Admitting Unavailable ERIC MONTGOMERY I Primary Care Unavailable PROVIDER, UNKNOWN Consulting Unavailable PROVIDER, UNKNOWN Consulting Unavailable PROVIDER, UNKNOWN Consulting Unavailable Dr. Diana Salmeron MD Primary Care Provider Victor M Rojas MD Attending Provider UnavailDr. Victor M Meneses MD Attending Provider Sole CEMETERY VAULT INSTALLER-CChristina Attending Provider Dr. Diana Salmeron MD Primary Care Provider Victor M Rojas MD Referring Provider Unavaila ble Victor M Gastelum Attending Unavailabl e Latouf, Butros Primary Care Unavailable OleVictor M Fleming Attending Unavailabl e Latouf, Butros Primary Care Unavailable OleVictor M Fleming Attending Unavailabl e Latouf, Butros Primary Care Unavailable Latouf, Butros Primary Care Unavailable Oleghe OLS, Efewongbe Attending Unavailabl e Latouf, Butros Primary Care Unavailable Oleghe OLS, Efewongbe Attending Unavailabl e Oleghe, Efewongbe Attending Unavailable Latouf, Butros Primary [...] e Latouf, Butros Primary Care Unavailable Christina Whipple [...] Attending Unavailable Latouf, Butros Primary Care Unavailable Nasim Caballero Attending Unavailable Latouf, Butros Referring Unavailable Christina Whipple Attending Unavailable Latouf, Butros Primary Care Unavailable Christina Whipple Attending Unavailable Latouf, Butros Primary Care Unavailable Latouf, Butros Referring Unavailable Lauren Carlson Attending Unavail able Latouf, Butros Primary Care Unavailable Latouf, Butros Primary Care Unavailable Christina Whipple Attending Unavailable Latouf, Butros Primary Care Unavailable Christina Whipple Attending Unavailable Latouf, Butros Primary Care Unavailable Victor M Rojas Attending Unavailable Jesse Angel Attending Unavailable Latouf, Butros Primary Care Unavailable Latouf, Butros Primary Care Unavailable Kacie Simon Attending Unavailable Latouf, Butros Referring Unavailable Latouf, Butros Primary Care Unavailable Victor M Gastelum Attending Unavailabl e Latouf, Butros Primary Care Unavailable Oleluise FRANKIE Efewongbe Referring Unavailabl e Oleghe OLS Efewongbe Attending Unavailabl e Medications Current Medications Medication [...] inhalation solution (7 sources) beta2-Adrenergic Agonist Start: 025 take 2.5 [...] (16 sources) Dihydropyridine Calcium Channel Nicole Start: 3 take 2.5 mg by mouth once daily [...] MG DAILY@0800 October 12, 2019 7:37am 10-12-2019 [facility] ([id number]) 0 10/12/2019 Active Comment on above: Aspirin Aspirin E.C. Active 81 MG DAILY@0800 October 12, 2019 7:37am 10-12-2019 [facility] ([id number]) Take 81 mg by mouth. atorvastatin 40 [...] Start: 08-19-2019 take 2 tablets by mo [facility] once daily levothyroxine (SYNTHROID) 25 mcg [...] (BACTROBAN) 2 % ointment 01/14/2023 Active nystatin 597885 unt/ml topical cream (10 sources) Polyene Antifungal [...] October 12, 2019 7:45am polyethylene glycol 3350 71820 mg powder for oral solution (20 sources) [...] pen injector 3 mg. 01/13/2025 Active vit C,Q-Zg-gfoxf-lutein-zeax an (PRESERVISION AREDS-2) 250-90-40-1 mg (12 sources) Start: 12-09-2020 vit C,E-Zn-molecular spectroscopist ar-idzyai-arximt (PRESERVISION AREDS-2) 250-90-40-1 mg Take 1 Each by mouth. 12/09/2020 Active Start: 12-09-2020 vit C,E-Zn-molecular spectroscopist mf-raoihr-pwscbo (PRESERVISION AREDS-2) 250-90-40-1 mg Take 1 Each [...] Start: 05-18-2020 take 1000 [IU] by mo [facility] once daily Cholecalciferol (Vitamin D3) Active 1000 [...] DAILY docusate sodium 50 mg / sennosides, penitentiary 8.6 mg oral tablet (1 source) take [...] 7:40am nerve pain take 1 capsule by [facility] once daily for pain gabapentin [...] on above: Take 1,000 mg by brayan th twice daily. miconazole nitrate 0.02 mg/mg topical [...] Translations: [Chronic kidney disease, stage 3b] Onset: 02-24-2025 Chronic obstructive pulmonary disease and bronchiectasis (12 [...] Coronary atherosclerosis; Translations: [Atherosclerotic heart disease of [place] coronary artery without angina pectoris] Onset: 12-31-2021 [...] Long-term current use of systemic steroid; Translations: [terminal supervisor (current) use of systemic steroids] Episodic Other aftercare (5 sources) Drug therapy finding; Translations: [Other terminal computer operator (current) drug therapy] 12-25-2022 Episodic Other aftercare (7 sources) Long-term current use of amiodarone; Translations: [Other terminal computer operator (current) drug therapy] 05-16-2022 Episodic Other aftercare (1 source) Other terminal computer operator (current) drug therapy; Translations: [Other terminal computer operator (current) drug therapy] Onset: 04-17-2025 Episodic Other bone disease and musculoskeletal deformities [...] Other nervous system disorders (1 source) H/O: CHECK EMBOSSER disorder; Translations: [Personal history of other diseases [...] Test Name Value Interpretation Reference Range Facility Cardiology Visit Reporton Cardiology Visit Report [facility] [address] [place] [address] OFFICE VISIT Date of Service: 04/17/25 MR#: [id number] Acct: [id number] Name: ELIZABETH MODI Rep #: [id number] : 1940 Provider: GILL Connor Age/Sex: 84/M Location: [facility] [place] Status: Signed HPI HPI History of Present Illness Details: The patient is an 84-year-old male with HTN, HLD, DM, and HFrEF presenting for follow-up. He was admitted in 05/2020 for bacteremia, during which he was found to be in atrial fibrillation with RVR. He was started on amiodarone and Eliquis. Echocardiogram at that time showed an EF of 40???45%, which subsequently declined to 25???30%. RVSP was 60 mmHg. A stress test demonstrated a small fixed anterior defect involving the anterior wall and apex with minimal reversibility. Echocardiogram in 2020 demonstrated an EF of 58%. An event monitor in 2020 demonstrated no evidence of atrial fibrillation. In 2021, he underwent CABG x1 (MOLINA to LAD) at [facility] in [place]. He currently resides at [facility]. He reports feeling well overall, with no chest pain, palpitations, or worsening dyspnea. He previously required supplemental oxygen for about a month due to shortness of breath, but his breathing has since returned to baseline and he no longer requires oxygen. He denies any bleeding issues. He reports a rash and vision changes, but otherwise feels well. Intake Vital Signs 10/16/24 07:59 04/17/25 07:52 Height 5 ft 6 in 5 ft 6 in BP 126/79 H Blood Pressure Location Lt brachial Position Sitting Respiration 18 Pulse 81 Pulse Source Monitor Pulse Oximetry (%) 97 Oxygen Delivery Method room air Intake Visit Reasons: 6 M Technical Producer Required: No Accompanied by: Caregiver Is patient in pain?: No Allergies No Known Allergies Allergy (Verified 04/17/25 08:06) Medications ???Medication ???Instructions ???Recorded ???Confirmed ???Type atorvastatin 40 mg tablet 40 mg PO DAILY 03/03/22 04/17/25 H istory carvedilol 3.125 mg tablet (Coreg) 3.125 mg PO BID 05/16/22 5 History acetaminophen 325 mg capsule 650 mg PO Q4H PRN pain 12/14/22 History polyethylene glycol 3350 17 17 g PO DAILY PRN constipation 04/17/25 History gram/dose oral powder (Miralax) sacubitril 24 mg-valsartan 26 mg 1 tab PO BID 01/11/23 04/17/25 His tory tablet (Entresto) ondansetron HCl 4 mg tablet 4 mg PO Q4H PRN nausea and vomitin g 05/30/23 04/17/25 History nystatin 100,000 unit/gram topical 1 applic topical QDAY 03/04/24 1 History cream potassium chloride 20 mEq 20 meq PO QDAY 03/04/24 04/17/25 H istory tablet,extended release(part/cryst) albuterol sulfate 2.5 mg/3 mL 2.5 mg inhalation BID PRN 10/16/24 04/17/25 History (0.083 %) solution for nebulization apixaban 2.5 mg tablet (Eliquis) 2.5 mg PO BID 10/16/24 04/17/25 Hi story glipizide 10 mg tablet, extended 10 mg PO DAILY 10/16/24 04/17/25 H istory release 24 hr levothyroxine 75 mcg tablet 75 mcg PO DAILY 10/16/24 04/17/25 History amiodarone 200 mg tablet 100 mg PO QDAY 04/17/25 04/17/25 H istory dextromethorphan polistirex 30 10 ml PO Q4H PRN PRN 04/17/25 10/ History mg/5 mL oral susp ext.release 12hr (Robitussin ER) dulaglutide 3 mg/0.5 mL 3 mg subcut QWEEK 04/17/25 5 History subcutaneous pen injector (Trulicity) loperamide 2 mg tablet 2 mg PO Q6H PRN 04/17/25 04/17/25 History (Anti-Diarrheal (loperamide)) Ejection fraction %: 45 (45-50%) Have you fallen in the past year?: No PFSH Medical History History of echocardiogram History of [...] pulmonary disease) Obesity Atherosclerotic heart disease of [place] coronary artery without angina pectoris Paroxysmal atrial fibrillation 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 Essential hypertension Tinea unguium Vitamin D deficiency Edentulous Tobacco dependence in remission Hypothyroidism Diabetes mellitus type 2, uncontrolled Surgical History (Updated 04/17/25 @ 09:35 by Lauren Hutchison PA, PA) History of heart surgery History of cardiac catheterization S/P bilateral below knee amputation S/P CABG x 1 History of cardioversion (05/20/20) History of left below knee amputation (05/26/20) H/O endart (more content not included)... Normal [facility] Anion gap in Serum or Plasma Ordered By: Victor M Rojas on 02-11-2025 Anion gap [Moles/Vol] 12 mmol/L 5-15 [facility] BUN/creatinine ratioOrdered By: Brandonbovina centerprice Rojas on 02-11-2025 Urea nitrogen/Creatinine [Mass ratio] 21.9 mg/mg High - [facility] Carbon dioxide, total [Moles /volume] in Central venous bloodOrdered By: Victor M Rojas on 02-11-2025 CO2 [Moles/Vol] 19.2 mmol/L Low 21.0-32.0 [facility] Chloride assayOrdered By: Stefan Rojas on 02-11-2025 Chloride [Moles/Vol] 108 mmol/L 98-108 [facility] Glomerular filtration rate ( GFR) estimation/1.73 sq m using serum, plasma, or whole bOrdered By: Victor M Rojas on 02-11-2025 GFR/1.73 sq M.predicted among non-blacks MDRD (S/P/Bld) [Vol rate/Area] 46 mL/min/{1.73_m2} Low >60 [facility] Comment on above: mL/min/1.73m2 CKD-EP I Creatinine Equation (2020) Potassium measurement (mass/ volume)Ordered By: Victor M Rojas on 02-11-2025 Potassium (Unsp spec) [Mass/Vol] 4.5 mmol/L 3.3-5.1 [facility] Serum creatinine measurement (mass/volume)Ordered By: Victor M Rojas on 02-11-2025 Creatinine [Mass/Vol] 1.51 mg/dL High 0.70-1.20 [facility] Serum glucose measurement (m ass/volume)Ordered By: Victor M Rojas on 02-11-2025 Glucose [Mass/Vol] 148 mg/dL High 70-99 [facility] Serum or plasma albumin akash urement (mass/volume)Ordered By: Victor M Rojas on 02-11-2025 Albumin [Mass/Vol] 3.3 g/dL Low 3.4-4.8 [facility] Serum or plasma calcium akash urement (mass/volume)Ordered By: Victor M Rojas on 02-11-2025 Calcium [Mass/Vol] 8.2 mg/dL 7.6-11.0 [facility] Serum or plasma urea nitroge n measurement (mass/volume)Ordered By: Victor M Rojas on 02-11-2025 Urea nitrogen [Mass/Vol] 33 mg/dL High 4-19 [facility] Sodium levelOrdered By: Brandon Rojas on 02-11-2025 Sodium [Moles/Vol] 139 mmol/L 133-145 [facility] Anion gap in Serum or Plasma Ordered By: Victor M Rojas on 02-04-2025 Anion gap [Moles/Vol] 13 mmol/L 5-15 [facility] BUN/creatinine ratioOrdered By: Victor M Rojas on 02-04-2025 Urea nitrogen/Creatinine [Mass ratio] 15.7 mg/mg 10-20 [facility] Carbon dioxide, total [Moles /volume] in Central venous bloodOrdered By: Victor M Rojas on 02-04-2025 CO2 [Moles/Vol] 19.7 mmol/L Low 21.0-32.0 [facility] Chloride assayOrdered By: Stefan Rojas on 02-04-2025 Chloride [Moles/Vol] 106 mmol/L 98-108 [facility] Glomerular filtration rate ( GFR) estimation/1.73 sq m using serum, plasma, or whole bOrdered By: Victor M Rojas on 02-04-2025 GFR/1.73 sq M.predicted among non-blacks MDRD (S/P/Bld) [Vol rate/Area] 41 mL/min/{1.73_m2} Low >60 [facility] Comment on above: mL/min/1.73m2 CKD-EP I Creatinine Equation (2020) Potassium measurement (mass/ volume)Ordered By: Victor M Rojas on 02-04-2025 Potassium (Unsp spec) [Mass/Vol] 4.2 mmol/L 3.3-5.1 [facility] Serum creatinine measurement (mass/volume)Ordered By: Victor M Rojas on 02-04-2025 Creatinine [Mass/Vol] 1.64 mg/dL High 0.70-1.20 [facility] Serum glucose measurement (m ass/volume)Ordered By: Victor M Rojas on 02-04-2025 Glucose [Mass/Vol] 76 mg/dL 70-99 [facility] Serum or plasma albumin akash urement (mass/volume)Ordered By: Victor M Rojas on 02-04-2025 Albumin [Mass/Vol] 3.4 g/dL 3.4-4.8 [facility] Serum or plasma calcium akash urement (mass/volume)Ordered By: Victor M Rojas on 02-04-2025 Calcium [Mass/Vol] 8.4 mg/dL 7.6-11.0 [facility] Serum or plasma urea nitroge n measurement (mass/volume)Ordered By: Victor M Rojas on 02-04-2025 Urea nitrogen [Mass/Vol] 26 mg/dL High 4-19 [facility] Sodium levelOrdered By: Brandon Rojas on 02-04-2025 Sodium [Moles/Vol] 139 mmol/L 133-145 [facility] Anion gap in Serum or Plasma Ordered By: Victor M Rojas on 01-28-2025 Anion gap [Moles/Vol] 12 mmol/L 5-15 [facility] BUN/creatinine ratioOrdered By: Victor M Rojas on 01-28-2025 Urea nitrogen/Creatinine [Mass ratio] 15.7 mg/mg 10-20 [facility] Carbon dioxide, total [Moles /volume] in Central venous bloodOrdered By: Victor M Rojas on 01-28-2025 CO2 [Moles/Vol] 19.7 mmol/L Low 21.0-32.0 [facility] Chloride assayOrdered By: Stefan Rojas on 01-28-2025 Chloride [Moles/Vol] 106 mmol/L 98-108 [facility] Glomerular filtration rate ( GFR) estimation/1.73 sq m using serum, plasma, or whole bOrdered By: Victor M Rojas on 01-28-2025 GFR/1.73 sq M.predicted among non-blacks MDRD (S/P/Bld) [Vol rate/Area] 38 mL/min/{1.73_m2} Low >60 [facility] Comment on above: mL/min/1.73m2 CKD-EP I Creatinine Equation (2020) Potassium measurement (mass/ volume)Ordered By: Victor M Rojas on 01-28-2025 Potassium (Unsp spec) [Mass/Vol] 4.1 mmol/L 3.3-5.1 [facility] Serum creatinine measurement (mass/volume)Ordered By: Victor M Rojas on 01-28-2025 Creatinine [Mass/Vol] 1.74 mg/dL High 0.70-1.20 [facility] Serum glucose measurement (m ass/volume)Ordered By: Victor M Rojas on 01-28-2025 Glucose [Mass/Vol] 137 mg/dL High 70-99 [facility] Serum or plasma albumin akash urement (mass/volume)Ordered By: Victor M Rojas on 01-28-2025 Albumin [Mass/Vol] 3.2 g/dL Low 3.4-4.8 [facility] Serum or plasma calcium akash urement (mass/volume)Ordered By: Victor M Rojas on 01-28-2025 Calcium [Mass/Vol] 8.1 mg/dL 7.6-11.0 [facility] Serum or plasma urea nitroge n measurement (mass/volume)Ordered By: Victor M Rojas on 01-28-2025 Urea nitrogen [Mass/Vol] 27 mg/dL High 4-19 [facility] Sodium levelOrdered By: Brandon Rojas on 01-28-2025 Sodium [Moles/Vol] 138 mmol/L 133-145 [facility] Anion gap in Serum or Plasma Ordered By: Victor M Rojas on 01-22-2025 Anion gap [Moles/Vol] 15 mmol/L 5-15 [facility] BUN/creatinine ratioOrdered By: Victor M Rojas on 01-22-2025 Urea nitrogen/Creatinine [Mass ratio] 24.3 mg/mg High 10-20 [facility] Carbon dioxide, total [Moles /volume] in Central venous bloodOrdered By: Victor M Rojas on 01-22-2025 CO2 [Moles/Vol] 18.3 mmol/L Low 21.0-32.0 [facility] Chloride assayOrdered By: Stefan Rojas on 01-22-2025 Chloride [Moles/Vol] 103 mmol/L 98-108 [facility] Glomerular filtration rate ( GFR) estimation/1.73 sq m using serum, plasma, or whole bOrdered By: Victor M Rojas on 01-22-2025 GFR/1.73 sq M.predicted among non-blacks MDRD (S/P/Bld) [Vol rate/Area] 33 mL/min/{1.73_m2} Low >60 [facility] Comment on above: mL/min/1.73m2 CKD-EP I Creatinine Equation (2020) Potassium measurement (mass/ volume)Ordered By: Victor M Rojas on 01-22-2025 Potassium (Unsp spec) [Mass/Vol] 3.9 mmol/L 3.3-5.1 [facility] Serum creatinine measurement (mass/volume)Ordered By: Victor M Rojas on 01-22-2025 Creatinine [Mass/Vol] 1.96 mg/dL High 0.70-1.20 [facility] Serum glucose measurement (m ass/volume)Ordered By: Victor M Rojas on 01-22-2025 Glucose [Mass/Vol] 83 mg/dL 70-99 [facility] Serum or plasma albumin akash urement (mass/volume)Ordered By: Victor M Rojas on 01-22-2025 Albumin [Mass/Vol] 3.3 g/dL Low 3.4-4.8 [facility] Serum or plasma calcium akash urement (mass/volume)Ordered By: Victor M Rojas on 01-22-2025 Calcium [Mass/Vol] 8.2 mg/dL 7.6-11.0 [facility] Serum or plasma urea nitroge n measurement (mass/volume)Ordered By: Victor M Rojas on 01-22-2025 Urea nitrogen [Mass/Vol] 48 mg/dL High 4-19 [facility] Sodium levelOrdered By: Brandon perezomisammi Rojas on 01-22-2025 Sodium [Moles/Vol] 136 mmol/L 133-145 [facility] Absolute lymphocyte countOrd ered By: Victor M Rojas on 01-20-2025 Lymphocytes Auto (Unsp spec) [#/Vol] 1.51 10*3/uL 0.83-4.51 [facility] Absolute neutrophil countOrd ered By: Victor M Rojas on 01-20-2025 Neutrophils (Bld) [#/Vol] 6.1 10*3/uL 2.0-7.7 [facility] Anion gap in Serum or Plasma Ordered By: Victor M Rojas on 01-20-2025 Anion gap [Moles/Vol] 16 mmol/L High 5-15 [facility] Automated lymphocyte count a s percentage of total leukocytesOrdered By: Victor M Rojas on 01-20-2025 Lymphocytes/100 WBC Auto (Unsp spec) 16.5 % Low 19-41 [facility] BUN/creatinine ratioOrdered By: Victor M Rojas on 01-20-2025 Urea nitrogen/Creatinine [Mass ratio] 16.1 mg/mg 10-20 [facility] Basophil percentageOrdered B y: Victor M Rojas on 01-20-2025 Basophils/100 WBC (Bld) 0.3 % 0-[address] [facility] Carbon dioxide, total [Moles /volume] in Central venous bloodOrdered By: Victor M Rojas on 01-20-2025 CO2 [Moles/Vol] 19.5 mmol/L Low 21.0-32.0 [facility] Chloride assayOrdered By: Stefan Rojas on 01-20-2025 Chloride [Moles/Vol] 103 mmol/L 98-108 [facility] Eosinophil percentageOrdered By: Victor M Rojas on 01-20-2025 Eosinophils/100 WBC (Bld) 1.2 % 0-5 [facility] Erythrocyte distribution wid th ratioOrdered By: Victor M Rojas on 01-20-2025 Erythrocyte distribution width (RBC) [Ratio] 14.9 % High 11.6-14.6 [facility] Erythrocyte distribution wid th standard deviationOrdered By: Victor M Rojas on 01-20-2025 Erythrocyte distribution width (RBC) [Ratio] 47.9 fl High 35.1-43.9 [facility] Glomerular filtration rate ( GFR) estimation/1.73 sq m using serum, plasma, or whole bOrdered By: Victor M Rojas on 01-20-2025 GFR/1.73 sq M.predicted among non-blacks MDRD (S/P/Bld) [Vol rate/Area] 29 mL/min/{1.73_m2} Low >60 [facility] Comment on above: mL/min/1.73m2 CKD-EP I Creatinine Equation (2020) Hematocrit Auto (Bld) [Volum e fraction]Ordered By: Victor M Rojas on 01-20-2025 Hematocrit (Bld) [Volume fraction] 42.5 % 40-54 [facility] Hemoglobin measurementOrdere d By: Victor M Rojas on 01-20-2025 Hemoglobin (Bld) [Mass/Vol] 14.0 g/dL 13.0-16.5 [facility] Immature granulocytes/100 WB C Auto (Bld)Ordered By: Victor M Rojas on 01-20-2025 Immature granulocytes/100 WBC (Bld) 2.100 % High 0.0-0.9 [facility] Comment on above: IG% - Immature Granu locytes (promyelocytes, myelocytes and metamyelocytes) > 1% indicates that a LEFT SHIFT is Present. MCV (mean corpuscular volume ) determinationOrdered By: Victor M Rojas on 01-20-2025 MCV (RBC) [Entitic vol] 88.4 fL 80-[address] [facility] Mean corpuscular hemoglobin (MCH) determinationOrdered By: Victor M Rojas on 01-20-2025 MCH (RBC) [Entitic mass] 29.1 pg 27.0-32.0 [facility] Mean corpuscular hemoglobin concentration (MCHC) determinationOrdered By: Victor M Rojas on 01-20-2025 MCHC (RBC) [Mass/Vol] 32.9 g/dL 32-36 [facility] Mean platelet volume determi nationOrdered By: Victor M Rojas on 01-20-2025 Platelet mean volume (Bld) [Entitic vol] 11.6 fL 6.2-12.0 [facility] Monocyte percentageOrdered B y: Victor M Rojas on 01-20-2025 Monocytes/100 WBC (Bld) 13.4 % High 0-[address] [facility] Neutrophil percentageOrdered By: Victor M Rojas on 01-20-2025 Neutrophils/100 WBC (Bld) 66.5 % 47-70 [facility] Nucleated red blood cell per centageOrdered By: Victor M Rojas on 01-20-2025 Nucleated RBC/100 WBC (Bld) [Ratio] 0 % 0-5 [facility] Platelet countOrdered By: Stefan Rojas on 01-20-2025 Platelets (Bld) [#/Vol] 218 10*3/uL 150-450 [facility] Potassium measurement (mass/ volume)Ordered By: Victor M Rojas on 01-20-2025 Potassium (Unsp spec) [Mass/Vol] 4.0 mmol/L 3.3-5.1 [facility] RBC Auto (Bld) [#/Vol]Ordere d By: Victor M Rojas on 01-20-2025 RBC (Bld) [#/Vol] 4.81 10*6/uL 4.6-6.2 [facility] Serum creatinine measurement (mass/volume)Ordered By: Milyprice Granadosluissammi on 01-20-2025 Creatinine [Mass/Vol] 2.19 mg/dL High 0.70-1.20 [facility] Serum glucose measurement (m ass/volume)Ordered By: Victor M Darwinluissammi on 01-20-2025 Glucose [Mass/Vol] 211 mg/dL High 70-99 [facility] Serum or plasma albumin akash urement (mass/volume)Ordered By: Victor M Darwinluissammi on 01-20-2025 Albumin [Mass/Vol] 3.3 g/dL Low 3.4-4.8 [facility] Serum or plasma calcium akash urement (mass/volume)Ordered By: Stefandorminy medical centerprice Darwinluissammi on 01-20-2025 Calcium [Mass/Vol] 8.4 mg/dL 7.6-11.0 [facility] Serum or plasma urea nitroge n measurement (mass/volume)Ordered By: Victor M Rojas on 01-20-2025 Urea nitrogen [Mass/Vol] 35 mg/dL High 4-19 [facility] Sodium levelOrdered By: Brandon Rojas on 01-20-2025 Sodium [Moles/Vol] 139 mmol/L 133-145 [facility] White blood cell (WBC) count Ordered By: Milyprice Granadosluissammi on 01-20-2025 WBC (Bld) [#/Vol] 9.2 10*3/uL 4.4-11.0 [facility] CNOVon 01-14-2025 CNOV Office Visit (URCANT ) ELIZABETH MODI ([id number]) 1940 [facility] Date Time Provider Department 7/29/25 9:15 AM GAYLA CLINE During your visit [...] patient: Yes Procedure confirmed with physician and behaviour support teacher: Yes UNIVERSAL PROTOCOL / SAFETY CHECKLIST Procedure [...] be provided wit (more content not included)... [facility] Anion gap in Serum or Plasma Ordered By: Victor M Rojas on 12-18-2024 Anion gap [Moles/Vol] 14 mmol/L 5-15 [facility] BUN/creatinine ratioOrdered By: Victor M Rojas on 12-18-2024 Urea nitrogen/Creatinine [Mass ratio] 18.6 mg/mg 10-20 [facility] Bilirubin, totalOrdered By: Victor M Rojas on 12-18-2024 Bilirubin [Mass/Vol] 0.79 mg/dL 0.00-1.30 [facility] Calculated very low density lipoprotein (VLDL) cholesterol measurementOrdered By: Victor M Rojas on 12-18-2024 Calculated very low density lipoprotein (VLDL) cholesterol measurement 25 mg/dL 5-40 [facility] Carbon dioxide, total [Moles /volume] in Central venous bloodOrdered By: Victor M Rojas on 12-18-2024 CO2 [Moles/Vol] 19.2 mmol/L Low 21.0-32.0 [facility] Chloride assayOrdered By: Stefan Rojas on 12-18-2024 Chloride [Moles/Vol] 105 mmol/L 98-108 [facility] Erythrocyte distribution wid th ratioOrdered By: Victor M Rojas on 12-18-2024 Erythrocyte distribution width (RBC) [Ratio] 14.9 % High 11.6-14.6 [facility] Erythrocyte distribution wid th standard deviationOrdered By: Victor M Rojas on 12-18-2024 Erythrocyte distribution width (RBC) [Ratio] 48.5 fl High 35.1-43.9 [facility] Glomerular filtration rate ( GFR) estimation/1.73 sq m using serum, plasma, or whole bOrdered By: Victor M Rojas on 12-18-2024 GFR/1.73 sq M.predicted among non-blacks MDRD (S/P/Bld) [Vol rate/Area] 38 mL/min/{1.73_m2} Low >60 [facility] Comment on above: mL/min/1.73m2 CKD-EP I Creatinine Equation (2020) Hematocrit Auto (Bld) [Volum e fraction]Ordered By: Victor M Rojas on 12-18-2024 Hematocrit (Bld) [Volume fraction] 44.3 % 40-54 [facility] Hemoglobin A1c percentageOrd ered By: Victor M Rojas on 12-18-2024 HbA1c (Bld) [Mass fraction] 8.8 % High <5.7 [facility] Comment on above: Normal < 5.7 % Predi abetic 5.7 - 6.4 % Diabetic >or= 6.5 % Please note range changes. Hemoglobin measurementOrdere d By: Victor M Rojas on 12-18-2024 Hemoglobin (Bld) [Mass/Vol] 14.1 g/dL 13.0-16.5 [facility] LDL calc ser/plasOrdered By: Victor M Rojas on 12-18-2024 Cholesterol in LDL [Mass/Vol] 48 mg/dL [facility] Comment on above: Fyctzbapmk=201-250 m g/dL & Higher Hbxm=158 mg/dL or greater Laboratory - Chemistry and C hemistry - challengeOrdered By: Victor M Rojas on 12-18-2024 AST [Catalytic activity/Vol] 27 U/L <38 [facility] MCV (mean corpuscular volume ) determinationOrdered By: Victor M Rojas on 12-18-2024 MCV (RBC) [Entitic vol] 89.1 fL 80-[address] [facility] Mean corpuscular hemoglobin (MCH) determinationOrdered By: Victor M Rojas on 12-18-2024 MCH (RBC) [Entitic mass] 28.4 pg 27.0-32.0 [facility] Mean corpuscular hemoglobin concentration (MCHC) determinationOrdered By: Victor M Rojas on 12-18-2024 MCHC (RBC) [Mass/Vol] 31.8 g/dL Low 32-36 [facility] Mean platelet volume determi nationOrdered By: Victor M Rojas on 12-18-2024 Platelet mean volume (Bld) [Entitic vol] 11.5 fL 6.2-12.0 [facility] Platelet countOrdered By: Stefan Rojas on 12-18-2024 Platelets (Bld) [#/Vol] 218 10*3/uL 150-450 [facility] Potassium measurement (mass/ volume)Ordered By: Victor M Rojas on 12-18-2024 Potassium (Unsp spec) [Mass/Vol] 4.3 mmol/L 3.3-5.1 [facility] RBC Auto (Bld) [#/Vol]Ordere d By: Victor M Rojas on 12-18-2024 RBC (Bld) [#/Vol] 4.97 10*6/uL 4.6-6.2 [facility] Screening total cholesterol/ high density lipoprotein (HDL) cholesterol ratioOrdered By: Victor M Rojas on 12-18-2024 Cholesterol.total/Cholest giuliana in HDL [Mass ratio] 4.53 {ratio} [facility] Serum creatinine measurement (mass/volume)Ordered By: Victor M Rojas on 12-18-2024 Creatinine [Mass/Vol] 1.74 mg/dL High 0.70-1.20 [facility] Serum globulin measurementOr dered By: Victor M Rojas on 12-18-2024 Globulin (S) [Mass/Vol] 3.5 g/dL 2.2-4.2 [facility] Serum glucose measurement (m ass/volume)Ordered By: Victor M Rojas on 12-18-2024 Glucose [Mass/Vol] 82 mg/dL 70-99 [facility] Serum or plasma alanine mojica otransferase (ALT) measurementOrdered By: Victor M Rojas on 12-18-2024 ALT [Catalytic activity/Vol] 20 U/L <47 [facility] Serum or plasma albumin aaksh urement (mass/volume)Ordered By: Stefanradha Rojas on 12-18-2024 Albumin [Mass/Vol] 3.3 g/dL Low 3.4-4.8 [facility] Serum or plasma albumin/glob ulin mass ratioOrdered By: Stefanradha Rojas on 12-18-2024 Albumin/Globulin [Mass ratio] 1.0 {ratio} 0.9-2.4 [facility] Serum or plasma alkaline marielos sphatase measurementOrdered By: Stefanradha Rojas 12-18-2024 ALP [Catalytic activity/Vol] 117 U/L 40-129 [facility] Serum or plasma calcium akash urement (mass/volume)Ordered By: Stefanvianeyleonaprice Granadosliussammi 12-18-2024 Calcium [Mass/Vol] 8.8 mg/dL 7.6-11.0 [facility] Serum or plasma cholesterol in HDL measurement (mass/volume)Ordered By: Brandontianna Rojas 12-18-2024 Cholesterol in HDL [Mass/Vol] 21 mg/dL Low >40 [facility] Comment on above: National Cholesterol Education Program (NCEP) guidelines:<40 mg/dL: Low HDL-cholesterol (major risk factor for CHD)>= 60 mg/dL: High HDL-cholesterol (negative risk factor for CHD)HDL-cholesterol is affected by a number of factors, e.g. smoking, exercise, hormones, sex and age. Serum or plasma cholesterol measurement (mass/volume)Ordered By: Victor M Rojas on 12-18-2024 Cholesterol [Mass/Vol] 94 mg/dL <201 [facility] Comment on above: Cholesterol level, D esirable <200 mg/dLBorderline high cholesterol 200-239 mg/dLHigh cholesterol >=240 mg/dLRecommendations of the NCEP Adult Treatment Panel for the following risk-cutoff thresholds for the [place] population. Serum or plasma urea nitroge n measurement (mass/volume)Ordered By: Victor M Rojas on 12-18-2024 Urea nitrogen [Mass/Vol] 32 mg/dL High 4-19 [facility] Sodium levelOrdered By: Brandon perezkandis Bob on 12-18-2024 Sodium [Moles/Vol] 138 mmol/L 133-145 [facility] TSH DL <= 0.005 mIU/L QnOrde red By: Victor M Rojas on 12-18-2024 TSH Qn 1.380 uIU/mL 0.300-4.200 [facility] Total proteinOrdered By: Prosper lonnieprice Rojas on 12-18-2024 Protein [Mass/Vol] 6.8 g/dL 5.9-8.4 [facility] Triglycerides measurementOrd ered By: Victor M Rojas on 12-18-2024 Triglyceride [Mass/Vol] 125 mg/dL <[address] [facility] Comment on above: The drugs N-Acetylcy steine and Metamizole may falsely depress this assay. Normal range: <150 mg/dLBorderline High: 150-199 mg/dLHigh: 200-499 mg/dLVery High: >500 mg/dL White blood cell (WBC) count Ordered By: Victor M Rojas on 12-18-2024 WBC (Bld) [#/Vol] 7.7 10*3/uL 4.4-11.0 [facility] Anion gap in Serum or Plasma Ordered By: Victor M Rojas on 11-20-2024 Anion gap [Moles/Vol] 13 mmol/L 5-15 [facility] BUN/creatinine ratioOrdered By: Victor M Rojas on 11-20-2024 Urea nitrogen/Creatinine [Mass ratio] 16.5 mg/mg 10-20 [facility] Carbon dioxide, total [Moles /volume] in Central venous bloodOrdered By: Victor M Rojas on 11-20-2024 CO2 [Moles/Vol] 20.9 mmol/L Low 21.0-32.0 [facility] Chloride assayOrdered By: Stefan Rojas on 11-20-2024 Chloride [Moles/Vol] 104 mmol/L 98-108 [facility] Glomerular filtration rate ( GFR) estimation/1.73 sq m using serum, plasma, or whole bOrdered By: Victor M Rojas on 11-20-2024 GFR/1.73 sq M.predicted among non-blacks MDRD (S/P/Bld) [Vol rate/Area] 38 mL/min/{1.73_m2} Low >60 [facility] Comment on above: mL/min/1.73m2 CKD-EP I Creatinine Equation (2020) Potassium measurement (mass/ volume)Ordered By: Victor M Rojas on 11-20-2024 Potassium (Unsp spec) [Mass/Vol] 4.2 mmol/L 3.3-5.1 [facility] Serum creatinine measurement (mass/volume)Ordered By: Victor M Rojas on 11-20-2024 Creatinine [Mass/Vol] 1.75 mg/dL High 0.70-1.20 [facility] Serum glucose measurement (m ass/volume)Ordered By: Victor M Rojas on 11-20-2024 Glucose [Mass/Vol] 130 mg/dL High 70-99 [facility] Serum or plasma albumin akash urement (mass/volume)Ordered By: Victor M Rojas on 11-20-2024 Albumin [Mass/Vol] 3.5 g/dL 3.4-4.8 [facility] Serum or plasma calcium akash urement (mass/volume)Ordered By: Victor M Rojas on 11-20-2024 Calcium [Mass/Vol] 8.8 mg/dL 7.6-11.0 [facility] Serum or plasma urea nitroge n measurement (mass/volume)Ordered By: Victor M Rojas on 11-20-2024 Urea nitrogen [Mass/Vol] 29 mg/dL High 4-19 [facility] Sodium levelOrdered By: Brandon Rojas on 11-20-2024 Sodium [Moles/Vol] 139 mmol/L 133-145 [facility] Calculated very low density lipoprotein (VLDL) cholesterol measurementOrdered By: Christina Whipple on 11-07-2024 Calculated very low density lipoprotein (VLDL) cholesterol measurement 34 mg/dL 5-40 [facility] LDL calc ser/plasOrdered By: Christina Whipple on 11-07-2024 Cholesterol in LDL [Mass/Vol] 43 mg/dL [facility] Comment on above: Aaeklcrvho=872-006 m g/dL & Higher Nqir=079 mg/dL or greater Screening total cholesterol/ high density lipoprotein (HDL) cholesterol ratioOrdered By: Christina Whipple on 11-07-2024 Cholesterol.total/Cholest giuliana in HDL [Mass ratio] 4.60 {ratio} [facility] Serum or plasma cholesterol in HDL measurement (mass/volume)Ordered By: Christina Whipple on 11-07-2024 Cholesterol in HDL [Mass/Vol] 21 mg/dL Low >40 [facility] Comment on above: National Cholesterol Education Program (NCEP) guidelines:<40 mg/dL: Low HDL-cholesterol (major risk factor for CHD)>= 60 mg/dL: High HDL-cholesterol (negative risk factor for CHD)HDL-cholesterol is affected by a number of factors, e.g. smoking, exercise, hormones, sex and age. Serum or plasma cholesterol measurement (mass/volume)Ordered By: Christina Whipple on 11-07-2024 Cholesterol [Mass/Vol] 99 mg/dL <201 [facility] Comment on above: Cholesterol level, D esirable <200 mg/dLBorderline high cholesterol 200-239 mg/dLHigh cholesterol >=240 mg/dLRecommendations of the NCEP Adult Treatment Panel for the following risk-cutoff thresholds for the [place] population. Triglycerides measurementOrd ered By: Christina Whipple on 11-07-2024 Triglyceride [Mass/Vol] 171 mg/dL <[address] [facility] Comment on above: The drugs N-Acetylcy steine and Metamizole may falsely depress this assay. Normal range: <150 mg/dLBorderline High: 150-199 mg/dLHigh: 200-499 mg/dLVery High: >500 mg/dL Anion gap in Serum or Plasma Ordered By: Victor M Rojas on 10-23-2024 Anion gap [Moles/Vol] 12 mmol/L 5- [facility] BUN/creatinine ratioOrdered By: Victor M Rojas on 10-23-2024 Urea nitrogen/Creatinine [Mass ratio] 21.7 mg/mg High - [facility] Carbon dioxide, total [Moles /volume] in Central venous bloodOrdered By: Victor M Rojas on 10-23-2024 CO2 [Moles/Vol] 19.8 mmol/L Low 21.0-32.0 [facility] Chloride assayOrdered By: Stefan Rojas on 10-23-2024 Chloride [Moles/Vol] 106 mmol/L 98-108 [facility] Glomerular filtration rate ( GFR) estimation/1.73 sq m using serum, plasma, or whole bOrdered By: Victor M Rojas on 10-23-2024 GFR/1.73 sq M.predicted among non-blacks MDRD (S/P/Bld) [Vol rate/Area] 39 mL/min/{1.73_m2} Low >60 [facility] Comment on above: mL/min/1.73m2 CKD-EP I Creatinine Equation (2020) Potassium measurement (mass/ volume)Ordered By: VictorM Rojas on 10-23-2024 Potassium (Unsp spec) [Mass/Vol] 4.0 mmol/L 3.3-5.1 [facility] Serum creatinine measurement (mass/volume)Ordered By: Victor M Rojas on 10-23-2024 Creatinine [Mass/Vol] 1.73 mg/dL High 0.70-1.20 [facility] Serum glucose measurement (m ass/volume)Ordered By: Victor M Rojas on 10-23-2024 Glucose [Mass/Vol] 129 mg/dL High 70-99 [facility] Serum or plasma albumin akash urement (mass/volume)Ordered By: Victor M Rojas on 10-23-2024 Albumin [Mass/Vol] 3.3 g/dL Low 3.4-4.8 [facility] Serum or plasma calcium akash urement (mass/volume)Ordered By: Victor M Rojas on 10-23-2024 Calcium [Mass/Vol] 8.6 mg/dL 7.6-11.0 [facility] Serum or plasma urea nitroge n measurement (mass/volume)Ordered By: Victor M Rojas on 10-23-2024 Urea nitrogen [Mass/Vol] 38 mg/dL High 4-19 [facility] Sodium levelOrdered By: Brandon tianna Rojas on 10-23-2024 Sodium [Moles/Vol] 137 mmol/L 133-145 [facility] Cardiology Visit Reporton Cardiology Visit Report [facility] [address] [place] [address] OFFICE VISIT Date of Service: 10/16/24 MR#: [id number] Acct: [id number] Name: ELIZABETH MODI Rep #: [id number] : 1940 Provider: GILL Connor Age/Sex: 84/M Location: [facility] [place] Status: Signed HPI HPI History of Present [...] x 1 in December of 2021 at [facility] in [place]. He had a left internal mammary artery to left anterior descending coronary artery. He is residing at a [facility]. 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 Normal [facility] Elbow min 3 Viewson 10-16-19 25 Elbow min 3 Views [facility] [address] [place] [address] Elbow min 3 Views MR#: [id number] Acct: [id number] Name: ELIZABETH MODI Rep #: [id number] : 1940 M 84 From: Edy Kapadia MD PCP: Dr. Diana Salmeron MD Status: REG ER Study: Elbow min 3 Views Date of Exam: 10/15/24 Exam# [id number] Ordering Dr: Jesse Angel DO EXAM: Left elbow CLINICAL HISTORY: Injury, pain COMPARISON: None TECHNIQUE: Three views FINDINGS: No acute fracture or dislocation. Moderate joint space narrowing and osteophyte formation consistent with moderate arthrosis. Normal soft tissues. RAD/Elbow min 3 Views IMPRESSION: No acute fracture or dislocation. Moderate arthrosis. Reading Location: [id number] CC: Dr. Diana Salmeron MD; Dr. Jesse Angel DO Ironing Pleater: Signed Normal [facility] Emergency Department Summary on 10-15-2024 Emergency Department Summary [facility] Medical Records Department [address] [place] [address] Emergency Department Summary 10/15/24 MR#: [id number] Acct: [id number] Name: ELIZABETH MODI Rep #: [id number] : 1940 84 From: Jesse Angel DO [...] of his last tetanus. 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 alcohol intake: current alcohol intake frequency: a few times a month details: Prior heavier, now occasional. substance use type: does not use ROS ROS ED Constitutional Constitutional ED: Denies chills or fever(s) Eyes E (more content not included)... Normal [facility] Orb Sella Post Fossa Ear w/o on 10-15-2024 Orb Sella Post Fossa Ear w/o [facility] Imaging Services [address] [place] [id number] Orb Sella Post Fossa Ear w/o MR#: [id number] Acct: [id number] Name: ELIZABETH MODI Rep #: [id number] : 1940 M 84 From: Edy Kapadia MD PCP: Dr. Diana Salmeron MD Status: REG ER Study: Orb Sella Post Fossa Ear w/o Date of Exam: Exam# [id number] Ordering Dr: Jesse Angel DO PROCEDURE: ORB [...] ORBITAL FRACTURE OR RETROBULBAR HEMATOMA. Reading Location: [facility] CC: Dr. Diana Salmeron MD; Dr. Jesse Angel, Ironing Pleater: Signed Normal [facility] Bacteria Ur Culton 5 Bacteria identified Cx [...] technique or straight catheterization for???urine???collecti on. Normal [facility] Comment on above: Performed By: #### 6 30-4 #### [facility] CLIA [id number] [address] [place] [address] [place] CNOVon 10-01-2024 CNOV Office Visit (UROLWS ) ELIZABETH MODI ([id number]) 1940 M [facility] Date Time Provider Department 10/01/24 1:00 PM NIKOLAI CONNOR During your visit today, we [...] Nikolai Connor PA-C 10/01/2024 2:58 PM Signed [facility] PATIENT CLINIC NOTE (M) Some [...] (ADULTS MULTIVITAMIN ORAL) Take by mouth. vit C,P-Io-ouyqr-lutein-ze axan (PRESERVISION AREDS-2) 250-90-40-1 mg Take 1 [...] mg ta (more content not included)... Normal [facility] 10-01-2024 [facility] Telephone (UROLWS) ELIZABETH MODI ([id number]) 1940 M T Date Time Provider Department [...] Known Allergies) Date Reviewed: 10/01/2024 Reviewed by: uLke Taylor LPN - Fully Assessed Primary Visit Diagnosis:Gross hematuria [R31.0] Order(s):CT UROGRAM WO/W IVCON [[id number]] Order #: [id number] FUTURE iv contrast (will be provided with [...] MULTIVITAMIN ORAL) Take by mouth. - vit C,N-Ye-melwb-lutein-ze axan (PRESERVISION AREDS-2) 250-90-40-1 mg Take 1 [...] mouth once (more content not included)... Normal [facility] Anion gap in Serum or Plasma Ordered By: Victor M Rojas on 09-18-2024 Anion gap [Moles/Vol] 14 mmol/L 5-15 [facility] BUN/creatinine ratioOrdered By: Victor M Rojas on 09-18-2024 Urea nitrogen/Creatinine [Mass ratio] 14.2 mg/mg 10-20 [facility] Bilirubin, totalOrdered By: Victor M Rojas on 09-18-2024 Bilirubin [Mass/Vol] 0.55 mg/dL 0.00-1.30 [facility] Calculated very low density lipoprotein (VLDL) cholesterol measurementOrdered By: Victor M Rojas on 09-18-2024 Calculated very low density lipoprotein (VLDL) cholesterol measurement 38 mg/dL 5-40 [facility] VLDL Cholesterol 38 mg/dL 5-40 [facility] Carbon dioxide, total [Moles /volume] in Central venous bloodOrdered By: Victor M Rojas on 09-18-2024 CO2 [Moles/Vol] 19.8 mmol/L Low 21.0-32.0 [facility] Chloride assayOrdered By: Stefan Rojas on 09-18-2024 Chloride [Moles/Vol] 102 mmol/L 98-108 [facility] Erythrocyte distribution wid th (RBC) [Ratio]Ordered By: Victor M Rojas on 09-18-2024 Erythrocyte distribution width (RBC) [Entitic vol] 47.1 fL High 35.1-43.9 [facility] Erythrocyte distribution wid th ratioOrdered By: Victor M Rojas on 09-18-2024 Erythrocyte distribution width (RBC) [Ratio] 14.4 % 11.6-14.6 [facility] Erythrocyte distribution wid th standard deviationOrdered By: Victor M Rojas on 09-18-2024 Erythrocyte distribution width (RBC) [Ratio] 47.1 fl High 35.1-43.9 [facility] GFR/1.73 sq M.predicted jacobo g non-blacks MDRD (S/P/Bld) [Vol rate/Area]Ordered By: Victor M Rojas on 09-18-2024 Estimated GFR (MDRD) Non-Af Amer 27 Low >60 [facility] Comment on above: mL/min/1.73m2 CKD-EP I Creatinine Equation (2020) Glomerular filtration rate ( GFR) estimation/1.73 sq m using serum, plasma, or whole bOrdered By: Victor M Rojas on 09-18-2024 GFR/1.73 sq M.predicted among non-blacks MDRD (S/P/Bld) [Vol rate/Area] 27 mL/min/{1.73_m2} Low >60 [facility] Comment on above: mL/min/1.73m2 CKD-EP I Creatinine Equation (2020) Hematocrit Auto (Bld) [Volum e fraction]Ordered By: Victor M Rojas on 09-18-2024 Hematocrit (Bld) [Volume fraction] 41.2 % 40-54 [facility] Hemoglobin A1c percentageOrd ered By: Victor M Rojas on 09-18-2024 HbA1c (Bld) [Mass fraction] 11.3 % >5.7 [facility] Hemoglobin measurementOrdere d By: Victor M Rojas on 09-18-2024 Hemoglobin (Bld) [Mass/Vol] 13.5 g/dL 13.0-16.5 [facility] LDL calc ser/plasOrdered By: Victor M Rojas on 09-18-2024 Cholesterol in LDL [Mass/Vol] 44 mg/dL [facility] Comment on above: Ieldwsqlxn=414-946 m g/dL & Higher Qzdj=351 mg/dL or greater LDL Cholesterol, Calculated 44 mg/dL [facility] Comment on above: Cstmrzcpol=953-981 m g/dL & Higher Dunl=763 mg/dL or greater Laboratory - Chemistry and C hemistry - challengeOrdered By: Victor M Rojas on 09-18-2024 AST [Catalytic activity/Vol] 43 U/L High <38 [facility] Comment on above: Hemolysis present, R esults could be affected. MCV (mean corpuscular volume ) determinationOrdered By: Victor M Rojas on 09-18-2024 MCV (RBC) [Entitic vol] 89.6 fL 80-[address] [facility] Mean corpuscular hemoglobin (MCH) determinationOrdered By: Victor M Rojas on 09-18-2024 MCH (RBC) [Entitic mass] 29.3 pg 27.0-32.0 [facility] Mean corpuscular hemoglobin concentration (MCHC) determinationOrdered By: Victor M Rojas on 09-18-2024 MCHC (RBC) [Mass/Vol] 32.8 g/dL 32-36 [facility] Mean platelet volume determi nationOrdered By: Victor M Rojas on 09-18-2024 Platelet mean volume (Bld) [Entitic vol] 12.0 fL 6.2-12.0 [facility] Platelet countOrdered By: Stefan Rojas on 09-18-2024 Platelets (Bld) [#/Vol] 209 10*3/uL 150-450 [facility] Potassium (Unsp spec) [Mass/ Vol]Ordered By: Victor M Rojas on 09-18-2024 Potassium [Moles/Vol] 4.1 mmol/L 3.3-5.1 [facility] Comment on above: Hemolysis present, R esults could be affected. Potassium measurement (mass/ volume)Ordered By: Victor M Rojas on 09-18-2024 Potassium (Unsp spec) [Mass/Vol] 4.1 mmol/L 3.3-5.1 [facility] Comment on above: Hemolysis present, R esults could be affected. RBC Auto (Bld) [#/Vol]Ordere d By: Victor M Rojas on 09-18-2024 RBC (Bld) [#/Vol] 4.60 10*6/uL 4.6-6.2 [facility] Screening total cholesterol/ high density lipoprotein (HDL) cholesterol ratioOrdered By: Victor M Rojas on 09-18-2024 Cholesterol.total/Cholest giuliana in HDL [Mass ratio] 4.29 {ratio} [facility] Serum creatinine measurement (mass/volume)Ordered By: Victor M Rojas on 09-18-2024 Creatinine [Mass/Vol] 2.35 mg/dL High 0.70-1.20 [facility] Serum globulin measurementOr dered By: Victor M Rojas on 09-18-2024 Globulin (S) [Mass/Vol] 3.4 g/dL 2.2-4.[address] [facility] Serum glucose measurement (m ass/volume)Ordered By: Victor M Rojas on 09-18-2024 Glucose [Mass/Vol] 287 mg/dL High 70-99 [facility] Serum or plasma alanine mojica otransferase (ALT) measurementOrdered By: Victor M Darwinluissammi on 09-18-2024 ALT [Catalytic activity/Vol] 41 U/L <47 [facility] Serum or plasma albumin akash urement (mass/volume)Ordered By: Milyprice Granadosluissammi 09-18-2024 Albumin [Mass/Vol] 3.4 g/dL 3.4-4.8 [facility] Serum or plasma albumin/glob ulin mass ratioOrdered By: [facility] Darwinsammi 09-18-2024 Albumin/Globulin [Mass ratio] 1.0 {ratio} 0.9-2.4 [facility] Serum or plasma alkaline marielos sphatase measurementOrdered By: Brandonbovina centerprice Darwinsammi 09-18-2024 ALP [Catalytic activity/Vol] 113 U/L 40-129 [facility] Serum or plasma calcium akash urement (mass/volume)Ordered By: Milyprice Granadosluissammi 09-18-2024 Calcium [Mass/Vol] 9.0 mg/dL 7.6-11.0 [facility] Serum or plasma cholesterol in HDL measurement (mass/volume)Ordered By: Victor M Darwinluissammi 09-18-2024 Cholesterol in HDL [Mass/Vol] 25 mg/dL Low >40 [facility] Comment on above: National Cholesterol Education Program (NCEP) guidelines:<40 mg/dL: Low HDL-cholesterol (major risk factor for CHD)>= 60 mg/dL: High HDL-cholesterol (negative risk factor for CHD)HDL-cholesterol is affected by a number of factors, e.g. smoking, exercise, hormones, sex and age. Serum or plasma cholesterol measurement (mass/volume)Ordered By: Milyprice Granadosluissammi on 09-18-2024 Cholesterol [Mass/Vol] 108 mg/dL <201 [facility] Comment on above: Cholesterol level, D esirable <200 mg/dLBorderline high cholesterol 200-239 mg/dLHigh cholesterol >=240 mg/dLRecommendations of the NCEP Adult Treatment Panel for the following risk-cutoff thresholds for the [place] population. Serum or plasma urea nitroge n measurement (mass/volume)Ordered By: Victor M Rojas on 09-18-2024 Urea nitrogen [Mass/Vol] 33 mg/dL High 4-19 [facility] Sodium levelOrdered By: Brandon tianna Bob on 09-18-2024 Sodium [Moles/Vol] 135 mmol/L 133-145 [facility] TSH DL <= 0.005 mIU/L QnOrde red By: Victor M Rojas on 09-18-2024 Thyroid Stimulating Hormone (TSH) 3.520 uIU/mL 0.300-4.200 [facility] TSH Qn 3.520 uIU/mL 0.300-4.200 [facility] Total proteinOrdered By: Prosper lonnieprice Rojas on 09-18-2024 Protein [Mass/Vol] 6.7 g/dL 5.9-8.4 [facility] Triglycerides measurementOrd ered By: Victor M Rojas on 09-18-2024 Triglyceride [Mass/Vol] 192 mg/dL <[address] [facility] Comment on above: The drugs N-Acetylcy steine and Metamizole may falsely depress this assay. Normal range: <150 mg/dLBorderline High: 150-199 mg/dLHigh: 200-499 mg/dLVery High: >500 mg/dL White blood cell (WBC) count Ordered By: Victor M Rojas on 09-18-2024 WBC (Bld) [#/Vol] 8.5 10*3/uL 4.4-11.0 [facility] Gastroenterology Visit Repor ton 09-06-2024 Gastroenterology Visit Report [facility] [address] [place] [address] OFFICE VISIT Date of Service: 09/06/24 MR#: [id number] Acct: [id number] Name: ELIZABETH MODI Rep #: [id number] : 1940 Provider: GILL Jefferson Age/Sex: 84/M Location: [facility] [place].[facility] Status: Signed Intake Vital Signs 01/11/24 07:47 [...] is experiencing diarrhea only once in awhile. [facility] Medical History (Updated 03/04/24 @ 10:55 by [...] pulmonary disease) Obesity Atherosclerotic heart disease of [place] coronary artery without angina pectoris Paroxysmal atrial [...] (Reviewed 02/15/23 @ 11:03 by Briana Plata [employer] INST[employer]ER, CEMETERY VAULT INSTALLER-C) Mother Diabetes Father Diabetes Heart disease Social History housing: [facility] Smoking Status: Former smoker how long ago did patient quit smoking: Quit . alcohol intake: current alcohol intake frequency: a few times a month details: Prior heavier, now occasional. substance use type: does not use HPI HPI Chief Complaint: fecal incontinence Details: ELIZABETH MODI, is a 84 M who presents to the office today for f/u. [facility] hospitalization 12.14.22-7 for management of choledocholithiasis, calculous cholecystis with [...] Appearance: average body habitus and well nourished [facility] Head: normal to ins (more content not included)... Normal [facility] Anion gap in Serum or Plasma Ordered By: Victor M Rojas on 08-21-2024 Anion gap [Moles/Vol] 14 mmol/L 5-15 [facility] BUN/creatinine ratioOrdered By: Victor M Rojas on 08-21-2024 Urea nitrogen/Creatinine [Mass ratio] 18.2 mg/mg 10-20 [facility] Carbon dioxide, total [Moles /volume] in Central venous bloodOrdered By: Victor M Rojas on 08-21-2024 CO2 [Moles/Vol] 20.5 mmol/L Low 21.0-32.0 [facility] Chloride assayOrdered By: Stefan Rojas on 08-21-2024 Chloride [Moles/Vol] 102 mmol/L 98-108 [facility] GFR/1.73 sq M.predicted jacobo g non-blacks MDRD (S/P/Bld) [Vol rate/Area]Ordered By: Victor M Rojas on 08-21-2024 Estimated GFR (MDRD) Non-Af Amer 31 Low >60 [facility] Comment on above: mL/min/1.73m2 CKD-EP I Creatinine Equation (2020) Glomerular filtration rate ( GFR) estimation/1.73 sq m using serum, plasma, or whole bOrdered By: Victor M Rojas on 08-21-2024 GFR/1.73 sq M.predicted among non-blacks MDRD (S/P/Bld) [Vol rate/Area] 31 mL/min/{1.73_m2} Low >60 [facility] Comment on above: mL/min/1.73m2 CKD-EP I Creatinine Equation (2020) Potassium (Unsp spec) [Mass/ Vol]Ordered By: Victor M Rojas on 08-21-2024 Potassium [Moles/Vol] 4.3 mmol/L 3.3-5.1 [facility] Potassium measurement (mass/ volume)Ordered By: Victor M Rojas on 08-21-2024 Potassium (Unsp spec) [Mass/Vol] 4.3 mmol/L 3.3-5.1 [facility] Serum creatinine measurement (mass/volume)Ordered By: Victor M Rojas on 08-21-2024 Creatinine [Mass/Vol] 2.07 mg/dL High 0.70-1.20 [facility] Serum glucose measurement (m ass/volume)Ordered By: Victor M Rojas on 08-21-2024 Glucose [Mass/Vol] 198 mg/dL High 70-99 [facility] Serum or plasma albumin akash urement (mass/volume)Ordered By: Victor M Rojas on 08-21-2024 Albumin [Mass/Vol] 3.3 g/dL Low 3.4-4.8 [facility] Serum or plasma calcium akash urement (mass/volume)Ordered By: Victor M Rojas on 08-21-2024 Calcium [Mass/Vol] 8.8 mg/dL 7.6-11.0 [facility] Serum or plasma urea nitroge n measurement (mass/volume)Ordered By: Victor M Rojsa on 08-21-2024 Urea nitrogen [Mass/Vol] 38 mg/dL High 4-19 [facility] Serum phosphorus measurement Ordered By: Victor M Rojas on 08-21-2024 Phosphorus Level 4.2 mg/dL 2.7-4.5 [facility] Sodium levelOrdered By: Brandon Rojas on 08-21-2024 Sodium [Moles/Vol] 136 mmol/L 133-145 [facility] Random urine microalbumin me asurementOrdered By: Victor M Rojas on 08-01-2024 Urine Random Microalbumin 583.0 mg/L NO RANGE EST. [facility] Urine albumin/creatinine rat io for detection of microalbuminuriaOrdered By: Victor M Rojas on 08-01-2024 Urine Microalbumin/Creatinine Ratio 1371.8 mg/g CRE High <30 [facility] Urine creatinine measurement (mass/volume)Ordered By: Victor M Rojas on 08-01-2024 Creatinine (U) [Mass/Vol] 42.50 mg/dL NO RANGE EST. [facility] Blood urea nitrogen (BUN)/cr eatinine ratioOrdered By: Victor M Rojas on 07-24-2024 Urea nitrogen/Creatinine [Mass ratio] 20.5 mg/mg High 10-20 [facility] Carbon dioxide measurementOr dered By: Victor M Rojas on 07-24-2024 CO2 [Moles/Vol] 21.0 mmol/L 21.0-32.0 [facility] Chloride measurementOrdered By: Victor M Rojas on 07-24-2024 Chloride [Moles/Vol] 106 mmol/L 98-107 [facility] Estimated glomerular filtrat ion rate (GFR) AmericanOrdered By: Victor M Rojas on 07-24-2024 Estimated GFR (MDRD) Amer 44 mL/min Low >60 [facility] Comment on above: GFR Calc Glomerular filtration rate ( GFR) estimationOrdered By: Victor M Rojas on 07-24-2024 Estimated GFR (MDRD) Non-Af Amer 36 mL/min Low >60 [facility] Comment on above: Non- GFR Calc GFR/1.73 sq M.predicted among non-blacks MDRD (S/P/Bld) [Vol rate/Area] 36 mL/min/{1.73_m2} Low >60 [facility] Comment on above: Non- GFR Calc Glucose measurementOrdered B y: Victor M Rojas on 07-24-2024 Glucose [Mass/Vol] 230 mg/dL High 74-106 [facility] Comment on above: Glucose result great er than or equal to 200 mg/dLsuggests DIABETES MELLITUS per A.D.A. criteria. Hemoglobin A1c percentageOrd ered By: Victor M Rojas on 07-24-2024 HbA1c (Bld) [Mass fraction] 8.3 % High 3.8-5.6 [facility] Comment on above: Normal < 5.7 % Predi abetic 5.7 - 6.4 % Diabetic >or= 6.5 % Please note range changes. Phosphorus measurementOrdere d By: Victor M Rojas on 07-24-2024 Phosphorus Level 3.4 mg/dL 2.5-4.9 [facility] Potassium measurementOrdered By: Victor M Rojas on 07-24-2024 Potassium [Moles/Vol] 4.3 mmol/L 3.5-5.1 [facility] Serum or plasma albumin akash urement (mass/volume)Ordered By: Victor M Rojas on 07-24-2024 Albumin [Mass/Vol] 2.7 g/dL Low 3.2-5.0 [facility] Serum or plasma calcium akash urement (mass/volume)Ordered By: Victor M Rojas on 07-24-2024 Calcium [Mass/Vol] 8.2 mg/dL Low 8.5-10.1 [facility] Serum or plasma creatinine m easurement (mass/volume)Ordered By: Victor M Rojas on 07-24-2024 Creatinine [Mass/Vol] 1.90 mg/dL High 0.70-1.30 [facility] Comment on above: The validity of the calculated GFR & GFRAA in patients over 70 years has not been determined. Clinical correlation is essential. Serum or plasma urea nitroge n measurement (mass/volume)Ordered By: Victor M Rojas on 07-24-2024 Urea nitrogen [Mass/Vol] 39 mg/dL High 7-18 [facility] Sodium levelOrdered By: Brandon perezkandis Bob on 07-24-2024 Sodium [Moles/Vol] 135 mmol/L Low 136-[address] [facility] [address] UROGRAM WO/W IVCONon 01-1 CT UROGRAM WO/W IVCON * * *Final Report* * * DATE OF EXAM: Jun 28 2024 2:26PM [facility] 0560 - CT UROGRAM WO/W IVCON [...] be communicated with the ordering provider via Outline staff message or phone message by [facility] within 2 business days of report finalization. --END OF FINDING-- Ironing Pleater: ONEL Transcribe Date/Time: Jul 01 2024 9:40P Dictated by : JARAD ARCOS MD This examination was interpreted and the report reviewed and electronically signed by: JARAD ARCOS MD on Jul 01 2024 9:53PM EST [id number] Invalid Interpretation Code [facility] Estimated glomerular filtrat ion rate (GFR) AmericanOrdered By: Victor M Rojas on 06-27-2024 Estimated GFR (MDRD) Amer 37 mL/min Low >60 [facility] Comment on above: GFR Calc Glomerular filtration rate ( GFR) estimationOrdered By: Victor M Rojas on 06-27-2024 Estimated GFR (MDRD) Non-Af Amer 31 mL/min Low >60 [facility] Comment on above: Non- GFR Calc Serum or plasma creatinine m easurement (mass/volume)Ordered By: Victor M Rojas on 06-27-2024 Creatinine [Mass/Vol] 2.20 mg/dL High 0.70-1.30 [facility] Comment on above: The validity of the calculated GFR & GFRAA in patients over 70 years has not been determined. Clinical correlation is essential. Beau 06-21-2024 JONAS Telephone (UROLWS) ELIZABETH MODI ([id number]) 1940 [facility] Date Time Provider Department 06/21/24 NIKOLAI CONNOR During your visit today, we recorded the following information about you: Anaid Payne MA 06/21/2024 4:28 PM Signed ----- Message from Nikolai Connor PA-C sent at 06/21/2024 3:54 PM EST ----- No infection in the urine No cancer cells in urine, please continue the rest of the testing JAJA Stewart, [place], Susan Lopez MA 06/25/2024 8:47 AM Signed [...] MULTIVITAMIN ORAL) Take by mouth. - vit C,X-Ev-lajsc-lutein-ze axan (PRESERVISION AREDS-2) 250-90-40-1 mg Take 1 [...] disease) (HCC) [I73.9] 12/07/2019 Below knee amputation ([facility]) [S88.119A] 12/07/2019 Nonhealing surgical wound [T81.89XA] 12/09/2019 Left renal mass [N28.89] 05/05/2023 Encounter Status:Closed by LUKE TAYLOR on 07/09/24 Normal [facility] Absolute neutrophil countOrd ered By: Victor M Rojas on 06-20-2024 Neutrophils (Bld) [#/Vol] 5.5 10*3/uL 2.0-7.7 [facility] Albumin to globulin ratioOrd ered By: Victor M Rojas on 06-20-2024 Albumin/Globulin [Mass ratio] 0.7 {ratio} Low 0.9-2.4 [facility] Basophil percentageOrdered B y: Victor M Rojas on 06-20-2024 Basophils/100 WBC (Bld) 0.3 % 0-[address] [facility] Bilirubin, totalOrdered By: Victor M Rojas on 06-20-2024 Bilirubin [Mass/Vol] 0.70 mg/dL 0.20-1.00 [facility] Comment on above: For patients on eltr ombopag therapy, use of Dimension [place] TBIL is not recommended. Blood urea nitrogen (BUN)/cr eatinine ratioOrdered By: Victor M Rojas on 06-20-2024 Urea nitrogen/Creatinine [Mass ratio] 19.0 mg/mg 10-20 [facility] Carbon dioxide measurementOr dered By: Victor M Rjoas on 06-20-2024 CO2 [Moles/Vol] 24.0 mmol/L 21.0-32.0 [facility] Chloride measurementOrdered By: Victor M Rojas on 06-20-2024 Chloride [Moles/Vol] 104 mmol/L 98-107 [facility] Eosinophil percentageOrdered By: Victor M Rojas on 06-20-2024 Eosinophils/100 WBC (Bld) 2.5 % 0-5 [facility] Erythrocyte distribution wid th (RBC) [Ratio]Ordered By: Victor M Rojas on 06-20-2024 Erythrocyte distribution width (RBC) [Entitic vol] 47.8 fL High 35.1-43.9 [facility] Erythrocyte distribution wid th ratioOrdered By: Victor M Rojas on 06-20-2024 Erythrocyte distribution width (RBC) [Ratio] 14.7 % High 11.6-14.6 [facility] Estimated glomerular filtrat ion rate (GFR) AmericanOrdered By: Victor M Rojas on 06-20-2024 Estimated GFR (MDRD) Amer 51 mL/min Low >60 [facility] Comment on above: GFR Calc Glomerular filtration rate ( GFR) estimationOrdered By: Victor M Rojas on 06-20-2024 Estimated GFR (MDRD) Non-Af Amer 42 mL/min Low >60 [facility] Comment on above: Non- GFR Calc Glucose measurementOrdered B y: Victor M Rojas on 06-20-2024 Glucose [Mass/Vol] 190 mg/dL High 74-106 [facility] Comment on above: Fasting Glucose resu lt greater than or equal to 126 mg/dL suggests DIABETES MELLITUS per A.D.A. criteria. Hematocrit Auto (Bld) [Volum e fraction]Ordered By: Victor M Rojas on 06-20-2024 Hematocrit (Bld) [Volume fraction] 42.8 % 40-54 [facility] Hemoglobin A1c percentageOrd ered By: Victor M Rojas on 06-20-2024 HbA1c (Bld) [Mass fraction] 8.3 % High 3.8-5.6 [facility] Comment on above: Normal < 5.7 % Predi abetic 5.7 - 6.4 % Diabetic >or= 6.5 % Please note range changes. Hemoglobin measurementOrdere d By: Victor M Rojas on 06-20-2024 Hemoglobin (Bld) [Mass/Vol] 13.6 g/dL 13.0-16.5 [facility] High density lipoprotein (HD L) measurementOrdered By: Victor M Rojas on 06-20-2024 Cholesterol in HDL [Mass/Vol] 29 mg/dL Low >40 [facility] Comment on above: The drugs N-Acetylcy steine and Metamizole may falsely depress this assay. Reference Range HDL <40 mg/dL Low HDL Cholesterol HDL >or= 60 mg/dL High HDL Cholesterol Immature granulocytes/100 WB C Auto (Bld)Ordered By: Victor M Rojas on 06-20-2024 Immature granulocytes/100 WBC (Bld) 1.900 % High 0.0-0.9 [facility] Comment on above: IG% - Immature Granu locytes (promyelocytes, myelocytes and metamyelocytes) > 1% indicates that a LEFT SHIFT is Present. Laboratory - Chemistry and C hemistry - challengeOrdered By: Victor M Rojas on 06-20-2024 AST [Catalytic activity/Vol] 37 U/L 15-37 [facility] Comment on above: Slight Hemolysis, Re sult may be falsely increased. Low density lipoprotein (LDL ) cholesterol measurementOrdered By: Victor M Rojas on 06-20-2024 Cholesterol in LDL [Mass/Vol] 46 mg/dL 0-130 [facility] Lymphocytes Auto (Unsp spec) [#/Vol]Ordered By: Victor M Rojas on 06-20-2024 Lymphocytes (Bld) [#/Vol] 1.97 10*3/uL 0.83-4.5 1 [facility] Lymphocytes/100 WBC Auto (Un sp spec)Ordered By: Victor M Rojas on 06-20-2024 Lymphocytes/100 WBC (Bld) 21.8 % 19-41 [facility] MCV (mean corpuscular volume ) determinationOrdered By: Victor M Rojas on 06-20-2024 MCV (RBC) [Entitic vol] 89.9 fL 80-[address] [facility] Mean corpuscular hemoglobin (MCH) determinationOrdered By: Victor M Rojas on 06-20-2024 MCH (RBC) [Entitic mass] 28.6 pg 27.0-32.0 [facility] Mean corpuscular hemoglobin concentration (MCHC) determinationOrdered By: Victor M Rojas on 06-20-2024 MCHC (RBC) [Mass/Vol] 31.8 g/dL Low 32-36 [facility] Mean platelet volume determi nationOrdered By: Victor M Rojas on 06-20-2024 Platelet mean volume (Bld) [Entitic vol] 11.9 fL 6.2-12.0 [facility] Monocyte percentageOrdered B y: Victor M Rojas on 06-20-2024 Monocytes/100 WBC (Bld) 13.0 % High 0-[address] [facility] Neutrophil percentageOrdered By: Victor M Rojas on 06-20-2024 Neutrophils/100 WBC (Bld) 60.5 % 47-70 [facility] Nucleated red blood cell per centageOrdered By: Victor M Rojas on 06-20-2024 Nucleated RBC/100 WBC (Bld) [Ratio] 0 % 0-5 [facility] Platelet countOrdered By: Stefan Rojas on 06-20-2024 Platelets (Bld) [#/Vol] 239 10*3/uL 150-450 [facility] Potassium measurementOrdered By: Victor M Rojas on 06-20-2024 Potassium [Moles/Vol] 4.2 mmol/L 3.5-5.1 [facility] Comment on above: Slight Hemolysis, Re sult may be falsely increased. RBC Auto (Bld) [#/Vol]Ordere d By: Victor M Rojas on 06-20-2024 RBC (Bld) [#/Vol] 4.76 10*6/uL 4.6-6.2 [facility] Serum anion gap measurementO rdered By: Victor M Rojas on 06-20-2024 Anion gap [Moles/Vol] 8 mmol/L 5-15 [facility] Serum globulin measurementOr dered By: Victor M Rojas on 06-20-2024 Globulin (S) [Mass/Vol] 3.9 g/dL 2.2-4.[address] [facility] Serum or plasma alanine mojica otransferase (ALT) measurementOrdered By: Victor M Rojas on 06-20-2024 ALT [Catalytic activity/Vol] 45 U/L 16-61 [facility] Serum or plasma albumin akash urement (mass/volume)Ordered By: Victor M Rojas on 06-20-2024 Albumin [Mass/Vol] 2.8 g/dL Low 3.2-5.0 [facility] Serum or plasma alkaline marielos sphatase measurementOrdered By: Victor M Rojas on 06-20-2024 ALP [Catalytic activity/Vol] 123 U/L High 45-117 [facility] Serum or plasma calcium akash urement (mass/volume)Ordered By: Victor M Rojas on 06-20-2024 Calcium [Mass/Vol] 8.4 mg/dL Low 8.5-10.1 [facility] Serum or plasma cholesterol measurement (mass/volume)Ordered By: Victor M Rojas on 06-20-2024 Cholesterol [Mass/Vol] 104 mg/dL <200 [facility] Comment on above: <200 mg/dL Desirable 200-240 mg/dL Borderline >240 mg/dL High Risk Serum or plasma creatinine m easurement (mass/volume)Ordered By: Victor M Rojas on 06-20-2024 Creatinine [Mass/Vol] 1.68 mg/dL High 0.70-1.30 [facility] Comment on above: The validity of the calculated GFR & GFRAA in patients over 70 years has not been determined. Clinical correlation is essential. Serum or plasma urea nitroge n measurement (mass/volume)Ordered By: Victor M Rojas on 06-20-2024 Urea nitrogen [Mass/Vol] 32 mg/dL High 7-18 [facility] Sodium levelOrdered By: Brandon Rojas on 06-20-2024 Sodium [Moles/Vol] 136 mmol/L 136-145 [facility] TSH QnOrdered By: Victor M Rojas on 06-20-2024 Thyroid Stimulating Hormone (TSH) 2.290 uIU/mL 0.358-3.740 [facility] Total proteinOrdered By: Prosper Rojas on 06-20-2024 Protein [Mass/Vol] 6.7 g/dL 6.4-8.2 [facility] Triglycerides measurementOrd ered By: Victor M Rojas on 06-20-2024 Triglyceride [Mass/Vol] 145 mg/dL <[address] [facility] Comment on above: The drugs N-Acetylcy steine and Metamizole may falsely depress this assay.Serum Triglycerides Reference Interval Normal <150 mg/dL Borderline high 150 - 199 mg/dL High 200 - 499 mg/dL Very High > or = 500 mg/dL Very low density lipoprotein (VLDL) cholesterol measurementOrdered By: Victor M Rojas on 06-20-2024 VLDL Cholesterol 29 mg/dL 5-40 [facility] White blood cell (WBC) count Ordered By: Victor M Rojas on 06-20-2024 WBC (Bld) [#/Vol] 9.1 10*3/uL 4.4-11.0 [facility] Bacteria Ur Culton 4 Bacteria identified Cx Nom (U) ORGANISM ID: 1 10,000 -<50,000 CFU/ml Mixed microbiota No further workup. Mixed microbiota can be due to???urine???contamina tion with skin bacteria at time of collection or presence of a long-term urinary catheter. If a new culture is needed, please consider re-education of the patient on proper midstream collection technique or straight catheterization for???urine???collecti on. Normal [facility] Comment on above: Performed By: #### 6 30-4 #### [facility] CLIA [id number] [address] [id number] [place] CNOVon 06-18-2024 CNOV Office Visit (UROLWS ) ELIZABETH MODI ([id number]) 1940 [facility] Date Time Provider Department 06/18/24 1:00 PM NIKOLAI CONNOR UROLRAFIQ During your visit today, we recorded the following information about you: Nikolai Connor PA-C 06/18/2024 4:05 PM Signed [facility] NEW PATIENT CLINIC NOTE SERVICE DATE: June 18, 2024 NAME: Elizabeth Modi CHIEF COMPLAINT: Hematuria HISTORY OF PRESENT ILLNESS: Elizabeth Modi is a 83 year old male an new patient here for The patient reports Hematuria with a few episodes of hematuria Will get Urine sample today for culture and cytology Schedule Cystoscopy at [place] And CT Urogram at [place] We discussed the need for full hematuria [...] (ADULTS MULTIVITAMIN ORAL) Take by mouth. vit C,Y-Tr-rsbxv-lutein-ze axan (PRESERVISION AREDS-2) 250-90-40-1 mg Take 1 [...] kidney disease no dialysis. Dr. Montgomery in [place] Congestive heart failure (HCC) DM (diab (more content not included)... Normal [facility] CREATININE BLDOrdered By: Amelia August on 06-18-2024 Creatinine [Mass/Vol] 1.37 mg/dL High 0.73 - 1.22 mg/dL [facility] GFR/1.73 sq M.predicted among non-blacks MDRD (S/P/Bld) [Vol rate/Area] 52 mL/min/{1.73_m2} Low - PINF Cl [facility] Comment on above: Estimated Glomerular [...] Interpretation and review of laboratory results Abnormal [facility] CREATININE BLDon 06-18-2024 Creatinine [Mass/Vol] 1.37 mg/dL High 0.73-1.22 [facility] Comment on above: Order Comment: Speci men Type: BLOOD SPECIMEN Ordering Facility: [facility] Address: [address] [place] [address] Performed By: #### C RET1 #### [id number] [address] [place] [address] [place] Creatinine and Glomerular filtration rate.predicted panel (S/P/Bld) 52 mL/min/1.73m??? Low >=60 [facility] Comment on above: Order Comment: Speci devi Type: BLOOD SPECIMEN Ordering Facility: [facility] Address: [address] [place] [address] Result Comment: Alma Delia mated Glomerular Filtration [...] GFR. Performed By: #### C RET1 #### [facility] [id number] [address] [place] [address] [place] CYTOLOGY NON-GYNon 4 CASE REPORT Normal [facility] Comment on above: Order Comment: Speci men Type: URINE SPECIMEN Ordering Facility: [facility] Address: [address] [place] [address] Result Comment: [facility] Cytology Report Case: [id number] Authorizing Provider: Nikolai Connor PA-C Collected: 06/18/2024 01:58 PM Ordering Location: Urology Received: 06/18/2024 02:43 PM Pathologist: Eric Sutherland MD Specimen: Urine, Cystoscopic Performed By: #### C YTONON #### [facility] CLIA [id number] [address] [place] [address] [place] CLINICAL HISTORY hematuria Normal [facility] Comment on above: Order Comment: Speci men Type: URINE SPECIMEN Ordering Facility: [facility] Address: [address] [place] [address] Performed By: #### C YTONON #### [facility] CLIA [id number] [address] [place] [address] [place] FINAL DIAGNOSIS Normal [facility] Comment on above: Order Comment: Speci men Type: URINE SPECIMEN Ordering Facility: [facility] Address: [address] [place] [address] Result Comment: A - Urine, Cystoscopic Negative for high-grade urothelial carcinoma. Acute and chronic inflammation. Blood. Performed By: #### C YTONON #### [facility] CLIA [id number] [address] [place] [address] [place] FINAL PERFORMING LAB Normal [facility] Comment on above: Order Comment: Speci men Type: URINE SPECIMEN Ordering Facility: [facility] Address: [address] [place] [address] Result Comment: Tech nical component, hammer driver screening performed at [facility], [address] [place] [address] CLIA# [id number] Diagnostic interpretation performed at [facility], [address] [place] [address] CLIA# [id number] Equipment Monitor Phototypesetting: Kemal Campos M.D. Performed By: #### C YTONON #### [facility] CLIA [id number] [address] [place] [address] [place] GROSS DESCRIPTION Normal [facility] Comment on above: Order Comment: Speci men Type: URINE SPECIMEN Ordering Facility: [facility] Address: [address] [place] [address] Result Comment: A. Alvarez godineze, Cystoscopic 8 cc cloudy red fluid . ThinPrep prepared. Performed By: #### C YTONON #### [facility] CLIA [id number] [address] [place] [address] [place] Bilirubin Test strip Ql (U)O rdered By: Victor M Rojas on 06-17-2024 Bilirubin Ql (U) Negative Negative [facility] Glucose Ql (U)Ordered By: Stefan Rojas on 06-17-2024 Glucose (U) [Mass/Vol] 1000 mg/dL High Normal [facility] Ketones Test strip Ql (U)Ord ered By: Victor M Rojas on 06-17-2024 Ketones Ql (U) Negative Negative [facility] Nitrite Test strip Ql (U)Ord ered By: Victor M Rojas on 06-17-2024 Nitrite Ql (U) Negative Negative [facility] Protein Test strip Ql (U)Ord ered By: Victor M Rojas on 06-17-2024 Protein Ql (U) 500 mg/dl High Negative [facility] Urine blood detectionOrdered By: Victor M Rojas on 06-17-2024 Urine Occult Blood 250 /ul High Negative [facility] Urine clarityOrdered By: Prosper Rojas on 06-17-2024 Clarity (U) Cloudy Clear [facility] Urine color determinationOrd ered By: Victor M Rojas on 06-17-2024 Color (U) Red Yellow [facility] Urine cultureOrdered By: Prosper Rojas on 06-17-2024 Bacteria identified Cx Nom (U) Culture exhibits no growth. [facility] Urine leukocyte esterase det ection by dipstickOrdered By: Victor M Rojas on 06-17-2024 Leukocyte esterase Test strip Ql (U) 25 /ul High Negative [facility] Urine pHOrdered By: Tg Rojas on 06-17-2024 pH (U) 5.0 [pH] 5.0 - 8.0 [facility] Urine specific gravity measu rementOrdered By: Victor M Rojas on 06-17-2024 Specific gravity (U) [Rel density] 1.015 1.002-1.030 [facility] Urobilinogen Ql (U)Ordered B y: Victor M Rojas on 06-17-2024 Urine Urobilinogen Normal mg/dl Normal [facility] Visit Repor ton 06-06-2024 Gastroenterology Visit Report [facility] [address] [place] [address] OFFICE VISIT Date of Service: 06/06/24 MR#: [id number] Acct: [id number] Name: ELIZABETH MODI Rep #: [id number] : 1940 Provider: GILL Jefferson Age/Sex: 83/M Location: [facility] [place] Status: Signed Intake [...] Denies bloody stools, N/V/C and abdominal pain. 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 alcohol intake: current alcohol intake frequency: a few times a month details: Prior heavier, now occasional. substance use type: does not use HPI HPI Chief Complaint: f/u. Details: ELIZABETH MODI, is a 83 M who presents to the office today for f/u. *[facility] hospitalization 12.14.22-12.17.22 for management of choledocholithiasis [...] MHD dila (more content not included)... Normal [facility] BCIDon 08-02-2023 Acinetobacter landon-baumanii complex Not detected Normal Not Detected [facility] ([place]) Comment on above: Performed By: #### B MARANDA #### [place] [id number] Bacteroides fragilis Not detected Normal Not Detected [facility] ([place]) Comment on above: Performed By: #### B MARANDA #### [place] [address] BCID Comment See Comment Normal [facility] ([place]) Comment on above: Result Comment: Anti microbial [...] follow. Performed By: #### B MARANDA #### [place] [address] Megan albicans Not detected Normal Not Detected [facility] ([place]) Comment on above: Performed By: #### B MARANDA #### [place] [address] Megan auris Not detected Normal Not Detected [facility] ([place] Comment on above: Performed By: #### B MARANDA #### [place] [address] Megan glabrata Not detected Normal Not Detected [facility] ([place] Comment on above: Performed By: #### B MARANDA #### [place] [address] Megan krusei Not detected Normal Not Detected [facility] ([place] Comment on above: Performed By: #### B MARANDA #### [place] [id number] Megan parapsilosis Not detected Normal Not Detected [facility] ([place]) Comment on above: Performed By: #### B MARANDA #### [place] [address] Megan tropicalis Not detected Normal Not Detected [facility] ([place]) Comment on above: Performed By: #### B MARANDA #### [facility] [address] [place] [phone] Cryptococcus neoformans-gattii Not detected Normal Not Detected [facility] ([place]) Comment on above: Performed By: #### B MARANDA #### [facility] [address] [place] [phone] CTX-M (ESBL) Not Applicable Normal Not Detected [facility] ([place]) Comment on above: Performed By: #### B MARANDA #### [facility] [address] [place] [address] E. Coli Not detected Normal Not Detected [facility] ([place]) Comment on above: Performed By: #### B MARANDA #### [facility] [address] [place] [address] Enterobacter cloacae Complex Not detected Normal Not Detected [facility] ([place] Comment on above: Performed By: #### B MARANDA #### [place] [address] Enterobacterales Not detected Normal Not Detected [facility] ([place] Comment on above: Performed By: #### B MARANDA #### [place] [address] Enterococcus faecalis Not detected Normal Not Detected [facility] ([place] Comment on above: Performed By: #### B MARANDA #### [place] [address] Enterococcus faecium Not detected Normal Not Detected [facility] ([place]) Comment on above: Performed By: #### B MARANDA #### [place] [id number] Haemophilus influenzae Not detected Normal Not Detected [facility] ([place] Comment on above: Performed By: #### B MARANDA #### [place] [id number] IMP (Carbapenemase) Not Applicable Normal Not Detected [facility] ([place] Comment on above: Performed By: #### B MARANDA #### [facility] [address] [place] [phone] Klebsiella aerogenes Not detected Normal Not Detected [facility] ([place] Comment on above: Performed By: #### B MARANDA #### [place] [address] Klebsiella oxytoca Not detected Normal Not Detected [facility] ([place] Comment on above: Performed By: #### B MARANDA #### [place] [address] Klebsiella pneumoniae group Not detected Normal Not Detected [facility] ([place] Comment on above: Performed By: #### B MARANDA #### [place] [address] KPC (Carbapenemase) Not Applicable Normal Not Detected [facility] ([place] Comment on above: Performed By: #### B MARANDA #### [place] [address] Listeria monocytogenes Not detected Normal Not Detected [facility] ([place] Comment on above: Performed By: #### B MARANDA #### [place] [address] MCR-1 (Colistin Resistance) Not Applicable Normal Not Detected [facility] ([place] Comment on above: Performed By: #### B MARANDA #### [place] [address] Mec A/C Detected Abnormal Not Detected [facility] ([place] Comment on above: Performed By: #### B MARANDA #### [place] [address] Mec A/C-MREJ (MRSA) Not Applicable Normal Not Detected [facility] ([place] Comment on above: Performed By: #### B MARANDA #### [place] [address] NDM (Carbapenemase) Not Applicable Normal Not Detected [facility] ([place] Comment on above: Performed By: #### B MARANDA #### [place] [id number] Neisseria meningitidis (Encapsalated) Not detected Normal Not Detected [facility] ([place] Comment on above: Performed By: #### B MARANDA #### [place] [address] OXA-48 like (Carbapenemase) Not Applicable Normal Not Detected [facility] ([place] Comment on above: Performed By: #### B MARANDA #### [facility] [address] [place] [phone] Proteus Not detected Normal Not Detected [facility] ([place] Comment on above: Performed By: #### B MARANDA #### [facility] [address] [place] [phone] Pseudomonas aeruginosa Not detected Normal Not Detected [facility] ([place] Comment on above: Performed By: #### B MARANDA #### [facility] [address] [place] [phone] S. agalactiae Org specific cx Ql (Vag fld) Not detected Normal Not Detected [facility] ([place] Comment on above: Performed By: #### B MARANDA #### [facility] [address] [place], [place] [id number] Salmonella species Not detected Normal Not Detected [facility] ([place] Comment on above: Performed By: #### B MARANDA #### [place] [id number] Serratia marcescens Not detected Normal Not Detected [facility] ([place] Comment on above: Performed By: #### B MARANDA #### [facility] [address] [place] [phone] Staphylococcus Detected Abnormal Not Detected [facility] ([place] Comment on above: Performed By: #### B MARANDA #### [address] [address] Staphylococcus aureus Not detected Normal Not Detected [facility] ([place] Comment on above: Result Comment: If S taphylococcus aureus is "Detected", an Infectious Disease physician consult is required on identification. Performed By: #### B MARANDA #### [facility] [address] [place] [address] Staphylococcus epidermidis Detected Abnormal Not Detected [facility] ([place] Comment on above: Performed By: #### B MARANDA #### [facility] [address] [place] [phone] Staphylococcus lugdunensis Not detected Normal Not Detected [facility] ([place] Comment on above: Performed By: #### B MARANDA #### [place] [id number] Stenotrophomonas maltophilia Not detected Normal Not Detected [facility] ([place] Comment on above: Performed By: #### B MARANDA #### [place] [address] Streptococcus Not detected Normal Not Detected [facility] ([place] Comment on above: Performed By: #### B MARANDA #### [facility] [address] [place] [address] Streptococcus pneumoniae Not detected Normal Not Detected [facility] ([place] Comment on above: Performed By: #### B MARANDA #### [place] [address] Streptococcus pyogenes Not detected Normal Not Detected [facility] ([place] Comment on above: Performed By: #### B MARANDA #### [place] [address] Van A/B Not Applicable Normal Not Detected [facility] ([place] Comment on above: Performed By: #### B MARANDA #### [place] [address] VIM (Carbapenemase) Not Applicable Normal Not Detected [facility] ([place] Comment on above: Performed By: #### B MARANDA #### [place] [address] Absolute lymphocyte countOrd ered By: Dwayne Palumbo on 02-08-2023 Lymphocytes Auto (Unsp spec) [#/Vol] 1.91 10*3/uL 0.83-4.51 [facility] Basophil percentageOrdered B y: Dwayne Palumbo on 02-08-2023 Basophils/100 WBC (Bld) 0.2 % 0-1 [facility] Bilirubin [Mass/Vol] 0.90 mg/dL 0.20-1.00 [facility] Comment on above: For patients on eltr ombopag therapy, use of Dimension [place] TBIL is not recommended. Chloride [Moles/Vol] 105 mmol/L 98-107 [facility] Eosinophils/100 WBC (Bld) 2.7 % 0-5 [facility] Glucose [Mass/Vol] 191 mg/dL 74-106 [facility] Comment on above: Fasting Glucose resu lt greater than or equal to 126 mg/dL suggests DIABETES MELLITUS per A.D.A. criteria. Neutrophils (Bld) [#/Vol] 7.0 10*3/uL 2.0-7.7 [facility] Neutrophils/100 WBC (Bld) 66.4 % 47-70 [facility] Potassium [Moles/Vol] 4.1 mmol/L 3.5-5.1 [facility] Protein [Mass/Vol] 8.0 g/dL 6.4-8.2 [facility] Sodium [Moles/Vol] 137 mmol/L 136-145 [facility] WBC (Bld) [#/Vol] 10.5 10*3/uL 4.4-11.0 [facility] Blood erythrocytes count (nu mber/volume)Ordered By: Dwayne Palumbo on 02-08-2023 RBC (Bld) [#/Vol] 4.64 10*6/uL 4.6-6.2 [facility] Blood hemoglobin measurement (mass/volume)Ordered By: Dwayne Palumbo on 02-08-2023 Hemoglobin (Bld) [Mass/Vol] 12.7 g/dL 13.0-16.5 [facility] Blood lymphocytes/100 leukoc ytesOrdered By: Dwayne Palumbo on 02-08-2023 Lymphocytes/100 WBC (Bld) 18.2 % 19-41 [facility] Blood monocytes/100 leukocyt esOrdered By: Dwayne Palumbo on 02-08-2023 Monocytes/100 WBC (Bld) 11.2 % 0-[address] [facility] Blood platelet mean volumeOr dered By: Dwayne Palumbo on 02-08-2023 Platelet mean volume (Bld) [Entitic vol] 10.7 fL 6.2-12.0 [facility] Determination of erythrocyte mean corpuscular volume (MCV)Ordered By: Dwayne Palumbo on 02-08-2023 MCV (RBC) [Entitic vol] 86.6 fL 80-[address] [facility] Hematocrit Auto (Bld) [Volum e fraction]Ordered By: Dwayne Palumbo on 02-08-2023 Hematocrit (Bld) [Volume fraction] 40.2 % 40-54 [facility] - Chemistry and C hemistry - challengeOrdered By: Dwayne Palumbo on 02-08-2023 ALP [Catalytic activity/Vol] 122 U/L 45-117 [facility] ALT [Catalytic activity/Vol] 42 U/L 16-61 [facility] CO2 [Moles/Vol] 23.0 mmol/L 21.0-32.0 [facility] Globulin (S) [Mass/Vol] 4.6 g/dL 2.2-4.[address] [facility] Urea nitrogen/Creatinine [Mass ratio] 25.7 mg/mg 10-20 [facility] - Hematology and Cell countsOrdered By: Dwayne Palumbo on 02-08-2023 Erythrocyte distribution width (RBC) [Entitic vol] 50.7 fL 35.1-43.9 [facility] Erythrocyte distribution width (RBC) [Ratio] 16.1 % 11.6-14.6 [facility] Immature granulocytes/100 WBC (Bld) 1.300 % 0.0-0.9 [facility] Comment on above: IG% - Immature Granu locytes (promyelocytes, myelocytes and metamyelocytes) > 1% indicates that a LEFT SHIFT is Present. MCH (RBC) [Entitic mass] 27.4 pg 27.0-32.0 [facility] Nucleated RBC/100 WBC (Bld) [Ratio] 0 % 0-5 [facility] MCHC Auto (RBC) [Mass/Vol]Or dered By: Dwayne Palumbo on 02-08-2023 MCHC (RBC) [Mass/Vol] 31.6 g/dL 32-36 [facility] No Panel InformationOrdered By: Dwayne Palumbo on 02-08-2023 Estimated GFR (MDRD) Amer 46 mL/min >60 [facility] Comment on above: GFR Calc Estimated GFR (MDRD) Non-Af Amer 38 mL/min >60 [facility] Comment on above: Non- GFR Calc Platelets bldOrdered By: Edilson Palumbo on 02-08-2023 Platelets (Bld) [#/Vol] 275 10*3/uL 150-450 [facility] Serum or plasma albumin akash urement (mass/volume)Ordered By: Dwayne Palumbo on 02-08-2023 Albumin [Mass/Vol] 3.4 g/dL 3.2-5.0 [facility] Serum or plasma albumin/glob ulin mass ratioOrdered By: Dwayne Palumbo on 02-08-2023 Albumin/Globulin [Mass ratio] 0.7 {ratio} 0.9-2.4 [facility] Serum or plasma calcium akash urement (mass/volume)Ordered By: Dwayne Palumbo on 02-08-2023 Calcium [Mass/Vol] 9.4 mg/dL 8.5-10.1 [facility] Serum or plasma creatinine m easurement (mass/volume)Ordered By: Dwayne Palumbo on 02-08-2023 Creatinine [Mass/Vol] 1.83 mg/dL 0.70-1.30 [facility] Comment on above: The validity of the calculated GFR & GFRAA in patients over 70 years has not been determined. Clinical correlation is essential. Serum or plasma urea nitroge n measurement (mass/volume)Ordered By: Dwayne Palumbo on 02-08-2023 Urea nitrogen [Mass/Vol] 47 mg/dL 7-18 [facility] Thin prep Papanicolaou smear with manual screeningOrdered By: Dwayne Palumbo on 02-08-2023 Thin prep Papanicolaou smear with manual screening 30 U/L 15-37 [facility] Thin prep Papanicolaou smear with manual screening 9 5-15 [facility] Absolute lymphocyte countOrd ered By: Jesse Haywood on 12-17-2022 Lymphocytes Auto (Unsp spec) [#/Vol] 0.86 10*3/uL 0.83-4.51 [facility] Basophil percentageOrdered B y: Jesse Haywood on 12-17-2022 Basophils/100 WBC (Bld) 0.1 % 0-1 [facility] Chloride [Moles/Vol] 113 mmol/L 98-107 [facility] Eosin[facility]/100 WBC (Bld) 0.2 % 0-5 [facility] Glucose [Mass/Vol] 178 mg/dL 74-106 [facility] Comment on above: Fasting Glucose resu lt greater than or equal to 126 mg/dL suggests DIABETES MELLITUS per A.D.A. criteria. Neutrophils (Bld) [#/Vol] 8.2 10*3/uL 2.0-7.7 [facility] Neutrophils/100 WBC (Bld) 80.2 % 47-70 [facility] Potassium [Moles/Vol] 3.8 mmol/L 3.5-5.1 [facility] Sodium [Moles/Vol] 141 mmol/L 136-145 [facility] WBC (Bld) [#/Vol] 10.2 10*3/uL 4.4-11.0 [facility] Blood erythrocytes count (nu mber/volume)Ordered By: Jesse Haywood on 12-17-2022 RBC (Bld) [#/Vol] 3.91 10*6/uL 4.6-6.2 [facility] Blood hemoglobin measurement (mass/volume)Ordered By: Jesse Haywood on 12-17-2022 Hemoglobin (Bld) [Mass/Vol] 11.1 g/dL 13.0-16.5 [facility] Blood lymphocytes/100 leukoc ytesOrdered By: Jesse Haywood on 12-17-2022 Lymphocytes/100 WBC (Bld) 8.4 % 19-41 [facility] Blood monocytes/100 leukocyt esOrdered By: Jesse Haywood on 12-17-2022 Monocytes/100 WBC (Bld) 9.2 % 0-[address] [facility] Blood platelet mean volumeOr dered By: Jesse Haywood on 12-17-2022 Platelet mean volume (Bld) [Entitic vol] 11.4 fL 6.2-12.0 [facility] Determination of erythrocyte mean corpuscular volume (MCV)Ordered By: Jesse Haywood on 12-17-2022 MCV (RBC) [Entitic vol] 87.7 fL 80-[address] [facility] Glucose Glucometer (dC) [M ass/Vol]Ordered By: Jesse Haywood on 12-17-2022 Glucose [Mass/Vol] 216 mg/dL 74-106 [facility] Comment on above: MANAGEMENT OF PATIEN T CARE PER NURSING PROTOCOL Hematocrit Auto (Bld) [Volum e fraction]Ordered By: Jesse Haywood on 12-17-2022 Hematocrit (Bld) [Volume fraction] 34.3 % 40-54 [facility] - Chemistry and C hemistry - challengeOrdered By: Jesse Haywood on 12-17-2022 CO2 [Moles/Vol] 21.0 mmol/L 21.0-32.0 [facility] Urea nitrogen/Creatinine [Mass ratio] 30.1 mg/mg 10-20 [facility] - Hematology and Cell countsOrdered By: Jesse Haywood on 12-17-2022 Erythrocyte distribution width (RBC) [Entitic vol] 47.4 fL 35.1-43.9 [facility] Erythrocyte distribution width (RBC) [Ratio] 14.7 % 11.6-14.6 [facility] Immature granulocytes/100 WBC (Bld) 1.900 % 0.0-0.9 [facility] Comment on above: IG% - Immature Granu locytes (promyelocytes, myelocytes and metamyelocytes) > 1% indicates that a LEFT SHIFT is Present. MCH (RBC) [Entitic mass] 28.4 pg 27.0-32.0 [facility] Nucleated RBC/100 WBC (Bld) [Ratio] 0 % 0-5 [facility] MCHC Auto (RBC) [Mass/Vol]Or dered By: Jesse Haywood on 12-17-2022 MCHC (RBC) [Mass/Vol] 32.4 g/dL 32-36 [facility] No Panel InformationOrdered By: Jesse Haywood on 12-17-2022 Estimated Creatinine Clearance Calc 34.17 ml/min [facility] Estimated GFR (MDRD) Amer 56 mL/min >60 [facility] Comment on above: GFR Calc Estimated GFR (MDRD) Non-Af Amer 47 mL/min >60 [facility] Comment on above: Non- GFR Calc Platelets bldOrdered By: Stephanie Haywood on 12-17-2022 Platelets (Bld) [#/Vol] 248 10*3/uL 150-450 [facility] Serum or plasma calcium akash urement (mass/volume)Ordered By: Jesse Haywood on 12-17-2022 Calcium [Mass/Vol] 8.0 mg/dL 8.5-10.1 [facility] Serum or plasma creatinine m easurement (mass/volume)Ordered By: Jesse Haywood on 12-17-2022 Creatinine [Mass/Vol] 1.53 mg/dL 0.70-1.30 [facility] Comment on above: The validity of the calculated GFR & GFRAA in patients over 70 years has not been determined. Clinical correlation is essential. Serum or plasma urea nitroge n measurement (mass/volume)Ordered By: Jesse Haywood on 12-17-2022 Urea nitrogen [Mass/Vol] 46 mg/dL 7-18 [facility] Thin prep Papanicolaou smear with manual screeningOrdered By: Jesse Haywood on 12-17-2022 Thin prep Papanicolaou smear with manual screening 7 5-15 [facility] Bacteria identified Anaer cx Nom (Unsp spec)Ordered By: Dwayne Palumbo on 12-16-2022 Anaerobic Culture Bacteroides vulgatus [facility] Bacteria identified Cx Nom ( Wound)Ordered By: Dwayne Palumbo on 12-16-2022 Wound Culture Escherichia coli [facility] Basophil percentageOrdered B y: Jesse Haywood on 12-16-2022 Bilirubin [Mass/Vol] 2.00 mg/dL 0.20-1.00 [facility] Comment on above: For patients on eltr ombopag therapy, use of Dimension [place] TBIL is not recommended. Protein [Mass/Vol] 6.4 g/dL 6.4-8.2 [facility] Gram stain for investigation of transfusion reactionOrdered By: Dwayne Palumbo on 12-16-2022 Microscopic observation Gram stain Nom (Unsp spec) [facility] INR in Blood by Coagulation assayOrdered By: Emmanuel Kohler on 12-16-2022 INR Coag (Bld) [Relative time] 1.3 {INR} [facility] - Chemistry and C hemistry - challengeOrdered By: Jesse Haywood on 12-16-2022 ALP [Catalytic activity/Vol] 278 U/L 45-117 [facility] ALT [Catalytic activity/Vol] 132 U/L 16-61 [facility] Globulin (S) [Mass/Vol] 4.2 g/dL 2.2-4.2 [facility] Laboratory - CoagulationOrde red By: Emmanuel Kohler on 12-16-2022 PT Coag (PPP) [Time] 16.5 s 11.7-14.9 [facility] Serum or plasma albumin akash urement (mass/volume)Ordered By: Jesse Haywood on 12-16-2022 Albumin [Mass/Vol] 2.2 g/dL 3.2-5.0 [facility] Serum or plasma albumin/glob ulin mass ratioOrdered By: Jesse Haywood on 12-16-2022 Albumin/Globulin [Mass ratio] 0.5 {ratio} 0.9-2.4 [facility] Thin prep Papanicolaou smear with manual screeningOrdered By: Jesse Haywood on 12-16-2022 Thin prep Papanicolaou smear with manual screening 74 U/L 15-37 [facility] Blood manual differential co mment interpretation (narrative result)Ordered By: Jesse Haywood on 12-15-2022 Manual differential comment Ghassan (Bld) [Interp] COMMENT [facility] Comment on above: MONOCYTOSIS. Laboratory - CoagulationOrde red By: Jesse Wang on 12-15-2022 aPTT Coag (Bld) [Time] 38.5 s 24.1-36.2 [facility] No Panel InformationOrdered By: Jesse Wang on 12-15-2022 Thyroid Stimulating Hormone (TSH) 1.50 uIU/mL 0.358-3.74 [facility] Review by pathologistOrdered By: Jesse Haywood on 12-15-2022 Pathologist review Ghassan (Unsp spec) [Interp] Reviewed [facility] Comment on above: Previous reported re sult: Stacy noonan Edited by: RGOOD on 12/15/22:1321Neutrophilic leukocytosis.Clinical correlation necessary.Raymond Knox M.D. 12/15/22 AMENDED REPORT 12/15/22 1321 PATH REV previously reported as: Stacy noonan Whole blood hemoglobin A1c/t otal hemoglobin ratio (mass fraction)Ordered By: Jesse Wang on 12-15-2022 HbA1c (Bld) [Mass fraction] 6.9 % 3.8-5.6 [facility] Comment on above: Normal < 5.7 % Predi abetic 5.7 - 6.4 % Diabetic >or= 6.5 % Please note range changes. BLOOD TB SCREENon 09-02-2022 M. tuberculosis tuberculin stim IFN-g Ql (Bld) Negative [facility] Mitogen minus Nil 5.42 IU/mL >=0.50 IU/mL [facility] TB Gamma Interpretation Infection with M . tuberculosis complex is unlikely. If latent tuberculosis infection is highly suspected, a negative result does not rule out the infection. Specimens from immunocompromised patients and those <5 years of age may show false negative results. In case of a contact investigation, please repeat 8-12 weeks after a known exposure. [facility] TB Nil 0.02 IU/mL <=8.00 IU/mL [facility] TB1 Ag minus Nil 0.00 IU/mL <0.35 IU/mL [facility] TB2 Ag minus Nil <0.35 IU/mL [facility] CBC W Auto Differential pane l (Bld)on 09-02-2022 Anisocytosis Ql (Bld) Present [facility] Basophils (Bld) [#/Vol] 0.00 10*3/uL <0.11 k/uL [facility] Basophils/100 WBC (Bld) 0.0 % [facility] Differential cell count method Nom (Bld) Manual [facility] Eosinophils (Bld) [#/Vol] 0.14 10*3/uL <0.46 k/ uL [facility] Eosinophils/100 WBC (Bld) 1.0 % [facility] Erythrocyte distribution width (RBC) [Ratio] 16.4 % High 11.5 - 15.0 % [facility] Hematocrit (Bld) [Volume fraction] 45.3 % 39.0 - 51.0 % [facility] Hemoglobin (Bld) [Mass/Vol] 14.4 g/dL 13.0 - 17.0 g/dL [facility] Lymphocytes (Bld) [#/Vol] 1.43 10*3/uL 1. 00 - 4.00 k/uL [facility] Lymphocytes/100 WBC (Bld) 10.0 % [facility] MCH (RBC) [Entitic mass] 29.9 pg 26. 0 - 34.0 pg [facility] MCHC (RBC) [Mass/Vol] 31.8 g/dL 30.5 - 36.0 g/dL [facility] MCV (RBC) [Entitic vol] 94.0 fL 80.0 - 100.0 fL [facility] [place] % 1.0 % [facility] Monocytes (Bld) [#/Vol] 1.00 10*3/uL High <0.87 k/uL [facility] Monocytes/100 WBC (Bld) 7.0 % [facility] Neutrophils (Bld) [#/Vol] 11.57 10*3/uL High 1 .45 - 7.50 k/uL [facility] Neutrophils/100 WBC (Bld) 81.0 % [facility] Nucleated RBC (Bld) [#/Vol] <0.01 k/uL [facility] Nucleated RBC/100 WBC (Bld) [Ratio] 0.0 /100 WBC [facility] Ovalocytes LM Ql (Bld) Few Cl [facility] Platelet mean volume (Bld) [Entitic vol] 11.1 fL 9.0 - 12.7 fL [facility] Platelets (Bld) [#/Vol] 282 10*3/uL 150 - 400 k/uL [facility] Platelets Estimate (Bld) [#/Vol] Adequate [facility] Polychromasia LM Ql (Bld) Slight [facility] RBC (Bld) [#/Vol] 4.82 10*6/uL 4.20 - 6.0 0 m/uL [facility] Red Cell Morph Reviewed: see result s of individual morphologies [facility] WBC (Bld) [#/Vol] 14.29 10*3/uL High 3.70 - 11.00 k/uL [facility] WBC Left Shift Ql (Bld) Present [facility] C-REACTIVE PROTEIN (CRP)on 0 09-01-2022 CRP [Mass/Vol] <0.9 mg/dL [facility] Comprehensive metabolic 2000 panelon 09-01-2022 Albumin [Mass/Vol] 4.0 g/dL 3.9 - 4.9 g/dL [facility] ALP [Catalytic activity/Vol] 88 U/L 38 - 113 U/L [facility] ALT [Catalytic activity/Vol] 19 U/L 10 - 54 U/L [facility] Anion gap [Moles/Vol] 11 mmol/L 9 - 18 mmol/L [facility] AST [Catalytic activity/Vol] 19 U/L 14 - 40 U/L [facility] Bilirubin [Mass/Vol] 0.5 mg/dL 0.2 - 1 .3 mg/dL [facility] Calcium [Mass/Vol] 9.4 mg/dL 8.5 - 10. 2 mg/dL [facility] Chloride [Moles/Vol] 106 mmol/L High 97 - 10 5 mmol/L [facility] CO2 [Moles/Vol] 21 mmol/L Low 22 - 30 mmol/L [facility] Creatinine [Mass/Vol] 2.01 mg/dL High 0.73 - 1.22 mg/dL [facility] Estimated Glomerular Filtration Rate 33 mL/min/1.73m Low >=60 mL/min/1.73 m [facility] Glucose [Mass/Vol] 146 mg/dL High 74 - 99 mg/dL [facility] Potassium [Moles/Vol] 4.5 mmol/L 3.7 - 5.1 mmol/L [facility] Protein [Mass/Vol] 7.2 g/dL 6.3 - 8.0 g/dL [facility] Sodium [Moles/Vol] 138 mmol/L 136 - 144 mmol/L [facility] Urea nitrogen [Mass/Vol] 50 mg/dL High 9 - 24 mg/dL [facility] ESR Westergren method (Bld) [Velocity]on 09-01-2022 ESR (Bld) [Velocity] 31 mm/h High 0 - 15 mm/hr [facility] VITAMIN D 25 HYDROXYon 09-01 25-hydroxyvitamin D3 [Mass/Vol] 27.8 ng/mL Low 31.0 - 80.0 ng/mL [facility] LABORATORYOrdered By: Michelle Gardner on 01-13-2022 Blood Glucose Testing Reason Routine (01/13/22 11:36 AM) [facility] Work Phone: Glucose [Mass/Vol] 101 mg/dL Invalid Interpretation Code 82 - 115 mg/dL [facility] Work Phone: Blood Glucose Testing Reason Routine (01/13/22 7:06 AM) [facility] Work Phone: Glucose [Mass/Vol] 87 mg/dL Invalid Interpretation Code 82 - 115 mg/dL [facility] Work Phone: LABORATORYOrdered By: SYSTEM SYSTEM on 01-13-2022 Anisocytosis Ql (Bld) 1+ *NA* (01/13/22 4:48 AM) Invalid Interpretation Code AH Workflow SS Basophils (Bld) [#/Vol] 0.0 103/mcL Invalid Interpretation Code 0.0 - 0.3 10^3/mcL Workflow SS Basophils/100 WBC (Bld) 0.0 % Invalid Interpretation Code 0.0 - 2.5 % AH Workflow SS Calcium [Mass/Vol] 8.9 mg/dL Invalid [...] 52.0 % Workflow SS Hemoglobin (Bld) [Mass/Vol] 10.2 G/dL [...] AH Workflow SS MCV (RBC) [Entitic vol] 88.5 [...] Glucose Testing Reason Routine (01/12/22 8:59 PM) [facility] Work Phone: Glucose [Mass/Vol] 153 mg/dL Invalid Interpretation Code 82 - 115 mg/dL [facility] Work Phone: LABORATORYOrdered By: Adali Spencer [...] Comment on above: Result Comment: [place] [id number] FLU B PCR Negative 8 (01/12/22 10:33 AM) Invalid Interpretation Code Negative AH Auto Viro/Sero SS Comment on above: Result Comment: [place] [id number] Hospitalized Yes (01/12/22 10:33 AM) Invalid Interpretation [...] Comment on above: Result Comment: Note s [id number] SARS-CoV-2 (COVID-19) RNA ARIELLE+probe Ql (Unsp spec) Negative 6 (01/12/22 10:33 AM) Invalid Interpretation Code Negative AH Auto Viro/Sero SS Comment on above: Result Comment: [place] s [id number] Symptomatic as Defined by CDC No (01/12/22 [...] Invalid Interpretation Code 4.0 - 15.0 mEq/L AH ADM SS Eosinophils (Bld) [#/Vol] 0.3 103/mcL Invali d Interpretation Code 0.0 - 0.7 10^3/mcL AH Workflow SS Eosinophils/100 WBC (Bld) 3.0 % [...] 1.4 10^3/mcL Workflow SS Monocytes/100 WBC (Bld) 4.0 % Invalid Interpretation Code 2.0 - 13.0 % Workflow SS Myelocytes/100 WBC (Bld) 3.0 % [...] 3.5 - 5.0 mEq/L AH ADM SS Anisocytosis Ql (Bld) 1+ *NA* [...] 20.0 - 40.0 % AH Workflow SS MCH (RBC) [Entitic mass] 29.3 pg Invalid Interpretation Code 27.0 - 33.0 pg AH Workflow SS MCHC 33.4 G/dL Invalid Interpretation Code 32.0 - 36.0 G/dL AH Workflow SS MCV (RBC) [Entitic vol] 87.9 [...] 10^3/mcL AH Workflow SS Monocytes/100 WBC (Bld) 6.0 % [...] 2.5 % Workflow SS Eosinophils (Bld) [#/Vol] 0.2 103/mcL Invali d Interpretation Code 0.0 - 0.7 10^3/mcL AH Workflow SS Eosinophils/100 WBC (Bld) 1.8 % Invali d Interpretation Code 0.0 - 6.0 % Workflow SS Lymphocytes (Bld) [#/Vol] 1.3 103/mcL Invali d Interpretation Code 0.9 - 4.3 10^3/mcL AH Workflow SS Lymphocytes/100 WBC (Bld) 13.5 % Invali d Interpretation Code 20.0 - 40.0 % Workflow SS Monocytes (Bld) [#/Vol] 0.9 103/mcL [...] 2.5 % Workflow SS Eosinophils (Bld) [#/Vol] 0.0 103/mcL [...] 10^3/mcL AH Workflow SS Monocytes/100 WBC (Bld) 8.2 % Invalid Interpretation Code 2.0 - 13.0 % AH Workflow SS Neutrophils (Bld) [#/Vol] 10.6 103/mcL Invali d Interpretation Code 2.3 - 8.1 10^3/mcL Workflow SS Neutrophils/100 WBC (Bld) 84.5 % Invali d Interpretation Code 50.0 - 75.0 % Workflow SS LABORATORYOrdered By: Brigida Knott on 01-06-2022 Blood Glucose Interventions Administered food/juice (01/06/22 8:38 AM) [facility] Work Phone: LABORATORYOrdered By: SYSTEM SYSTEM [...] - 1.20 mg/dL AH ADM SS Globulin 1.8 G/dL Invalid Interpretation [...] Code 7.380 - 7.460 Auto Chem SS Barometric Pressure 701 mm[Hg] [...] Barometric Pressure 702 mm[Hg] Invalid Interpretation Code Auto Chem SS Base excess Calc (Bld) [Moles/Vol] -6.5000 mmol/L Invalid Interpretation Code Auto Chem SS CO2 (Bld) [Partial pressure] 36.1 mm[Hg] Invalid Interpretation Code 32.0 - 46.0 mm Hg Auto Chem SS CO2 [Moles/Vol] 19.8 mmol/L Invalid Interpretation Code 22.0 - 30.0 mmol/L Auto Chem SS HCO3 (Bld) [Moles/Vol] 18.7 mmol/L Invalid Interpretation Code 21.0 - 29.0 mmol/L Auto Chem SS Oxygen (Bld) [Partial pressure] 113.9 mm[Hg] Invalid Interpretation Code 74.0 - 108.0 mm Hg Auto Chem SS pH (Bld) 7.333 [pH] [...] Interpretation Code BB Manual SS LABORATORYOrdered By: Primekss SYSTEM on 01-04-2022 Albumin BCP dye [Mass/Vol] [...] Invalid Interpretation Code 0.00 - 54.00 ng/L ADM SS Troponin I.cardiac DL <= 0.01 ng/mL [Mass/Vol] 3343.43 ng/L Invalid Interpretation Code 0.00 - 54.00 ng/L ADM SS Troponin I.cardiac DL <= 0.01 ng/mL [Mass/Vol] 3152.61 ng/L Invalid Interpretation Code 0.00 - 54.00 ng/L ADM SS HbA1c (Bld) [Mass fraction] 8.4 [...] Blood Glucose Interventions Retest (12/30/21 8:53 AM) [facility] Work Phone: LABORATORYOrdered By: Rohan Rivero [...] to increase blood sugar (12/30/21 8:32 AM) [facility] Work Phone: Hemoglobin A1con 08-04-2021 Glucose [Mass/Vol] 258 mg/dL Normal [facility] Reference Lab Comment on above: Performed By: #### H BA1C #### [facility] Routine Lab [address], [place] [id number] HbA1c (Bld) [Mass fraction] 10.6 % High 4.3-5.6 [facility] Reference Lab Comment on above: Performed By: #### H BA1C #### [facility] Routine Lab [address], [place] [address] Glucose,Bedsideon 02-09-2021 Glucose [Mass/Vol] 185 mg/dL High 70-100 [facility] Comment on above: Result Comment: Test performed by glucose meter. Results may be 10%-15% lower than serum/plasma values. (CLIA ID [id number]) Performed By: #### B GLU #### [facility] [address] [place] [address] Glucose [Mass/Vol] 284 mg/dL High 70-100 [facility] Comment on above: Result Comment: Test performed by glucose meter. Results may be 10%-15% lower than serum/plasma values. (CLIA ID [id number]) Performed By: #### B GLU #### [facility] [address] [place] [address] OPERATIVE REPORTOrdered By: 3m Scanning on 02-09-2021 [employer] Work Phone: Op Noteon 02-09-2021 [facility] Dictation: Topical Anesthesia Note Patient Name: Elizabeth Modi : 1940 Date of Procedure: 02/09/2021 Surgeon: Ammy Vicente M.D. Medical Aides Teacher: Rachel Elder MD Anesthesia: Monitored Anesthesia Care [...] then created using a cystotome and utrata forceps.Girard-dissecti on and hydro-delineation were then performed. Phacoemulsification [...] or any other concerns. Operative Note [facility] GlucoseOrdered By: Gayatri Vicente on 02-09-2021 Glucose [Mass/Vol] 185 mg/dL High 70 - 100 mg/dL [employer] Work Phone: Comment on above: Test performed by [employer] ucose meter. Results may be 10%-15% lower than serum/plasma values. (CLIA ID [id number]) Interpretation and review of laboratory results Abnormal [employer] Work Phone: Test Performed by [facility], [address] [place] [address] [employer] Work Phone: [employer] Work Phone: Glucose [Mass/Vol] 284 mg/dL High 70 - 100 mg/dL [employer] Work Phone: Comment on above: Test performed by [employer] ucose meter. Results may be 10%-15% lower than serum/plasma values. (CLIA ID [id number]) Interpretation and review of laboratory results Abnormal [employer] Work Phone: Test Performed by [facility], [address] [place] [address] [facility] Work Phone: [facility] Work Phone: Hemoglobin A1con 12-03-2020 Glucose [Mass/Vol] 194 mg/dL Normal [facility] Reference Lab Comment on above: Performed By: #### H BA1C #### [facility] Routine Lab [address] [place], [place] [id number] HbA1c (Bld) [Mass fraction] 8.4 % High 4.3-5.6 [facility] Reference Lab Comment on above: Performed By: #### H BA1C #### [facility] Routine Lab [address] [place], [place] [address] ECHOCARDIOGRAM LIMITED/FOLLO WUPon 11-13-2020 ECHOCARDIOGRAM LIMITED/FOLLOWUP ? [...] 06/08/2020, LV function has improved. Facility [facility] Patient Information Patient Name Elizabeth Modi [...] Role Read Date Dwayne Carrasco MD [facility] [place] 11/13/2020 Left Heart Measurements LV - Systole [...] patient's inability to turn. Imaging system used: [employer]. Exam Details Performed Procedure (more content not included)... Normal [facility] Hemoglobin A1con 09-10-2020 Glucose [Mass/Vol] 177 mg/dL Normal [facility] Reference Lab Comment on above: Performed By: #### H BA1C #### [facility] Routine Lab [address], [place] [address] HbA1c (Bld) [Mass fraction] 7.8 % High 4.3-5.6 [facility] Reference Lab Comment on above: Performed By: #### H BA1C #### [facility] Routine Lab [address], [place] [address] Beau 05-20-2020 JONAS Telephone (AGVASACC) ELIZABETH MODI ([id number]) 1940 M Date Time Provider Department 05/20/20 [...] Encounter Status:Closed by ZOLTAN EWING on 05/20/20 [facility] JONAS Telephone (AGDataCrowdACC) ELIZABETH MODI ([id number]) 1940 M Date Time Provider Department 05/20/20 RYAN ALLEN During your visit today, we recorded the following information about you: Bren Santos 05/20/2020 2:52 PM Signed I have received a call from the daughter Angelic and she stated her father is in the hospital in [place] where he has had great toe removed [...] Signed Noted. Thank you, Maria Esther Gusman APRN.DIESEL ENGINE ASSEMBLER Allergies As of Date: 05/20/2020 (No Known [...] Encounter Status:Closed by BREN SANTOS on 05/21/20 [facility] PROGRESSon 05-18-2020 PROGRESS HNO ID: [id number] Author: Ryan Allen Service: ? Author Type: [...] Anxiety and depression - DM (diabetes mellitus) ([facility]) - Dyslipidemia - HTN (hypertension) - Hypothyroidism - PVD (peripheral vascular disease) ([facility]) - Renal mass PAST SURGICAL [...] MG DAILY@0800 October 12, 2019 7:37am 10-12-2019 [facility] ([id number]) - gabapentin (NEURONTIN) 600 mg tablet Take [...] encounter diagnosis) (I73.9) PVD (peripheral vascular disease) ([facility]) (E11.69) Type 2 diabetes mellitus with other specified complication, without long-term current use of insulin ([facility]) (S91.302A) Open wound of left foot with [...] this point. Given the state of the [facility] emergency room at this junction it may be better to have him seen locally at [facility] and see if some antibiotic therapy at least overnight might be worth a try. Possible transfer from there would depend on his stability and the bed availability here at [facility] There are no Patient Instructions on file for this visit. Ryan Allen MD Normal [facility] Bas Metab 2000 Pnl SerPlon 1 07-15-2019 Anion gap [Moles/Vol] 13 mmol/L Normal 9-18 [facility] Comment on above: Order Comment: Speci men Type: BLOOD SPECIMEN Performed By: #### 2 4321-2 #### [facility] CLIA [id number] [address] [place] [address] Calcium [Mass/Vol] 9.8 mg/dL Normal 8.5-10.2 [facility] Comment on above: Order Comment: Speci men Type: BLOOD SPECIMEN Performed By: #### 2 4321-2 #### [facility] CLIA [id number] [address] [place] [address] Chloride [Moles/Vol] 102 mmol/L Normal 97-105 [facility] Comment on above: Order Comment: Speci men Type: BLOOD SPECIMEN Performed By: #### 2 4321-2 #### [facility] CLIA [id number] [address] [place] [address] CO2 [Moles/Vol] 24 mmol/L Normal 22-30 [facility] Comment on above: Order Comment: Speci men Type: BLOOD SPECIMEN Performed By: #### 2 4321-2 #### [facility] CLIA [id number] [address] [place] [address] Creatinine [Mass/Vol] 0.95 mg/dL Normal 0.73-1.22 [facility] Comment on above: Order Comment: Speci men Type: BLOOD SPECIMEN Performed By: #### 2 4321-2 #### [facility] CLIA [id number] [address] [place] [address] GFR/1.73 sq M.predicted MDRD (S/P/Bld) [Vol rate/Area] mL/min/{1.73_m2} [facility] Comment on above: Order Comment: [...] GFR. Performed By: #### 2 4321-2 #### [facility] CLIA [id number] [address] [place] [address] Glucose [Mass/Vol] 214 mg/dL High 74-99 [facility] Comment on above: Order Comment: Speci men Type: BLOOD SPECIMEN Result Comment: The [place] Diabetes Association (ADA) provides guidance for cutoff [...] Standards of Medical Care in Diabetes 2016, Scottish Diabetes Association. Diabetes Care. 2016.39(Suppl 1). Performed By: #### 2 4321-2 #### [facility] CLIA [id number] [address] [place] [address] Potassium [Moles/Vol] 4.9 mmol/L Normal 3.7-5.1 [facility] Comment on above: Order Comment: Speci men Type: BLOOD SPECIMEN Performed By: #### 2 4321-2 #### [facility] CLIA [id number] [address] [place] [address] Sodium [Moles/Vol] 139 mmol/L Normal 136-144 [facility] Comment on above: Order Comment: Speci men Type: BLOOD SPECIMEN Performed By: #### 2 4321-2 #### [facility] CLIA [id number] [address] [place] [address] Urea nitrogen [Mass/Vol] 31 mg/dL High 9-24 [facility] Comment on above: Order Comment: Speci men Type: BLOOD SPECIMEN Performed By: #### 2 4321-2 #### [facility] CLIA [id number] [address] [place] [address] CBC (hemogram) Bld Autoon Erythrocyte distribution width (RBC) [Ratio] 12.8 % Normal 11.5-15.0 [facility] Comment on above: Order Comment: Speci men Type: BLOOD SPECIMEN Performed By: #### 5 8410-2 #### [facility] CLIA [id number] [address] [place] [address] Hematocrit (Bld) [Volume fraction] 43.5 % Normal 39.0-51.0 [facility] Comment on above: Order Comment: Speci men Type: BLOOD SPECIMEN Performed By: #### 5 8410-2 #### [facility] CLIA [id number] [address] [place] [address] Hemoglobin (Bld) [Mass/Vol] 14.1 g/dL Normal 13.0-17.0 [facility] Comment on above: Order Comment: Speci men Type: BLOOD SPECIMEN Performed By: #### 5 8410-2 #### [facility] CLIA [id number] [address] [place] [address] MCH (RBC) [Entitic mass] 29.5 pg Normal 26.0-34.0 [facility] Comment on above: Order Comment: Speci men Type: BLOOD SPECIMEN Performed By: #### 5 8410-2 #### [facility] CLIA [id number] [address] [place] [address] MCHC (RBC) [Mass/Vol] 32.4 g/dL Normal 30.5-36.0 [facility] Comment on above: Order Comment: Speci men Type: BLOOD SPECIMEN Performed By: #### 5 8410-2 #### [facility] CLIA [id number] [address] [place] [address] MCV (RBC) [Entitic vol] 91.0 fL Normal 80.0-100.0 [facility] Comment on above: Order Comment: Speci men Type: BLOOD SPECIMEN Performed By: #### 5 8410-2 #### [facility] CLIA [id number] [address] [place] [address] Nucleated RBC (Bld) [#/Vol] 10*3/uL Normal <0.01 [facility] Comment on above: Order Comment: Speci men Type: BLOOD SPECIMEN Performed By: #### 5 8410-2 #### [facility] CLIA [id number] [address] [place] [address] Platelet mean volume (Bld) [Entitic vol] 10.4 fL Normal 9.0-12.7 [facility] Comment on above: Order Comment: Speci men Type: BLOOD SPECIMEN Performed By: #### 5 8410-2 #### [facility] CLIA [id number] [address] [place] [address] Platelets (Bld) [#/Vol] 367 10*3/uL Normal 150-400 [facility] Comment on above: Order Comment: Speci men Type: BLOOD SPECIMEN Performed By: #### 5 8410-2 #### [facility] CLIA [id number] [address] [place] [address] RBC (Bld) [#/Vol] 4.78 10*6/uL Normal 4.20-6.00 [facility] Comment on above: Order Comment: Speci men Type: BLOOD SPECIMEN Performed By: #### 5 8410-2 #### [facility] CLIA [id number] [address] [place] [address] WBC (Bld) [#/Vol] 11.87 10*3/uL High 3.70-11.00 [facility] Comment on above: Order Comment: Speci men Type: BLOOD SPECIMEN Performed By: #### 5 8410-2 #### [facility] CLIA [id number] [address] 05-15-2020 CNPN Telephone (AGVASSpiced Bits) ELIZABETH MODI ([id number]) 1940 M Date Time Provider Department 05/15/20 [...] Allergies) Date Reviewed: 05/15/2020 Reviewed by: Sunshine ([facility]) Kimberly - Fully Assessed Reason for [...] by MARIA ESTHER GUSMAN CNP on 05/19/20 [facility] HGB A1Con 05-15-2020 Average glucose Estimated from glycated hemoglobin mass conc (Bld) 189 mg/dL [facility] Comment on above: Order Comment: Speci men Type: BLOOD SPECIMEN Result Comment: eAG: (Estimated average glucose) is a calculated value from HgbA1c and is appeals representative of the average blood glucose level in the last 2-3 month period. Performed By: #### H BA1C ####[facility] LABORATORYCLIA [id number] [place] [address] HbA1c (Bld) [Mass fraction] 8.2 % High 4.3-5.6 [facility] Comment on above: Order Comment: Speci men Type: BLOOD SPECIMEN Result Comment: Amer ican Diabetes Association guidelines indicate that patients with HgbA1c in the range 5.7-6.4% are at increased risk for development of diabetes, and intervention by lifestyle modification may be beneficial. HgbA1c greater or equal to 6.5% is considered diagnostic of diabetes. Performed By: #### H BA1C ####[facility] LABORATORYCLIA [id number] [place] [address] HISTORY PHYSICALon 0 HISTORY PHYSICAL HNO ID: [id number] Author: Sunshine Harris Service: ? Author Type: [...] for Pre procedure History and physical ANESTHESIA: [facility] The patient has the following: ACTIVE PROBLEM LIST Gangrene of Foot (Hcc) Diabetes (Hcc) Htn (Hypertension) Dyslipidemia Hypothyroidism Malnutrition of Moderate Degree (Hcc) Pvd (Peripheral Vascular Disease) ([facility]) Below Knee Amputation (Hcc) Nonhealing Surgical Wound [...] Anxiety and depression - DM (diabetes mellitus) ([facility]) - Dyslipidemia - HTN (hypertension) - Hypothyroidism - PVD (peripheral vascular disease) ([facility]) PAST SURGICAL HISTORY Procedure Laterality [...] MG DAILY@0800 October 12, 2019 7:37am 10-12-2019 [facility] ([id number]) Taking Yes gabapentin (NEURONTIN) 600 mg tablet [...] CP and palpitations. No h/o of CHF, [place], Cardiac Sx, cardiac stents, PPM/AICD. +HTN, HLD, [...] managed by PCP. no recent A1C in [facility], most recent BG check from 12/11/2019 was 126. will get A1C at [facility] Former Smoker- quit in 1989, 30 pack [...] COVID, ECG, PT, CBC, BMP ordered in [facility] per surgeon. CONSULTS: No consults pending. Instructions Given to Patient: Patient given verbal and written preop instructions and voices comprehension and compliance. Antimicrobial soap and instructions given to patient. SIGNATURE: Sunshine Harris APRN.GURWINDER PATIENT NAME: Elizabeth Modi DATE: May 13, 2020 TIME: 3:32 PM PAGER/CONTACT #: Normal [facility] PT Pnl PPPon 05-15-2020 INR Coag (PPP) [Relative time] 1.0 {INR} Normal 0.9-1.3 [facility] Comment on above: Order Comment: Speci men Type: BLOOD SPECIMEN Result Comment: Radha min K Antagonist (VKA) Therapeutic Range: INR 2 to 3 (Target INR of 2.5) Note: For patients treated with VKA drugs, such as warfarin, the [employer] College of Chest [employer]icians 2012 Guideline recommends [...] GH, et al. Chest 2012, 141:7S-47S Dada RA, et al. [facility] 2017, 70: 252-289 Performed By: #### 3 4528-0 #### [facility] CLIA [id number] [address] [place] [address] PT Coag (PPP) [Time] 10.6 s Normal 9.7-13.0 [facility] Comment on above: Order Comment: Speci men Type: BLOOD SPECIMEN Performed By: #### 3 4528-0 #### [facility] CLIA [id number] [address] [place] [address] PT EDon 05-13-2020 PT ED HNO ID: [id number] Author: Jeni (Yuri) YURI Shoemaker Service: ? Author Type: Registered Nurse [...] Department: [place] SURGERY OR Normal [facility] PROGRESSon 04-29-2020 PROGRESS HNO ID: [id number] Author: Ryan Allen Service: ? Author Type: Physician Type: Progress Notes Filed: 04/29/2020 7:08 PM Note Text: This note was partially generated using [employer] voice recognition system. I spent 15+ minutes in the visit, with more than 50% of the total pofk-ij-skvy time of the visit in counseling / coordination of care. This was an office visit for follow-up will be reviewed recent imaging, reevaluated the left foot wound as well as talk to the patient and with his daughter who was on the telephone during the office visit during the Covid restrictions. CT scan that it been done [...] currently taking aspirin: Yes Normal [facility] CNOVon 04-28-2020 CN Office Visit (AGVASACC) ELIZABETH MODI ([id number]) 1940 M Date Time Provider Department 04/28/20 11:00 AM RYAN ALLEN AGJERZY During your visit today, we recorded the following information about you: Temperature Blood pressure Weight Height 80 degrees 134/60 88 kg 1.778 m Ryan Aleln MD 04/29/2020 7:08 PM Signed This note was partially generated using [employer] voice recognition system. I spent 15+ minutes in the visit, with more than 50% of the total nguz-hj-smin time of the visit in counseling / [...] runoffs Primary Visit Diagnosis:PVD (peripheral vascular disease) ([facility]) [I73.9] Other Visit Diagnoses:Nonhealing nonsurgical wound [T14.8XXA] Ischemia of lower extremity [I99.8] Below knee amputation ([facility]) [S88.119A] Prescriptions as of 04/28/2020 Sig: ASPIRIN [...] Status:Closed by [facility] ALL[facility] Tele[facility] (AGDataCrowdACC) ELIZABETH MODI ([id number]) 1940 M Date Time Provider Department 04/28/20 [...] Covid is 05/23/20 @ 1130 am at [facility] Post OP is 06/23/20 @ 10 am with Devin Mailed 04/30/20 shaila Lambert has been notified of dates and times. Allergies As of Date: 04/28/2020 (No Known Allergies) Date Reviewed: 04/28/2020 Reviewed by: Luke (Marv) Austin - Fully Assessed Reason for Visit: Schedule Surgery [1330] Primary Visit Diagnosis:PVD (peripheral vascular disease) (HCC) [I73.9] Order(s):SURGICAL REQUEST - ELECTIVE (01/2020) [2157176] Order #: [id number]: 1 HANDP FOR SURGERY [[id number]] Order #: [id number] PRE-PROCEDURE AND PRE-OPERATIVE COVID [SQPOCOVD] Order #: [id number] FUTURE CBC [SQCBC] Order #: [id number] FUTURE BASIC METABOLIC PNL [SQBMP] Order #: [id number] FUTURE PROTHROMBIN TIME/PT [SQPT] Order #: [id number] FUTURE ECG COMPLETE [ECG01] Order #: [id number] FUTURE Prescriptions as of 04/28/2020 Sig: ASPIRIN [...] GUSMAN CNP on 04/28/20 Normal [facility] CNOVon 04-21-2020 CNOV Office Visit (AKURFL ) ELIZABETH MODI ([id number]) 1940 M Date Time Provider Department 04/21/20 1:30 PM YADI WHITE During your visit today, we recorded the following information about you: Weight Height 88 kg 1.778 m Yadi White DO, MBA 04/21/2020 3:13 PM Signed ?? [facility] UR[facility]Y LOCATION: [address] [place] [address] NEW CONSULT VISIT PATIENT INFO: Elizabeth Modi [...] MG DAILY@0800 October 12, 2019 7:37am 10-12-2019 [facility] ([id number]) gabapentin (NEURONTIN) 600 mg tablet Take 600 [...] with more than 50% of the total kwrz-fb-fwpj time of the visit in counseling / coordination of care. Yadi White DO MBA Letter to: Dexter Reyes MD Referring Provider: DEXTER REYES CHI [[id number]] Allergies As of Date: 04/21/2020 (No Known Allergies) Date Reviewed: 04/21/2020 Reviewed by: Yadi White - Fully Assessed Reason for Visit: Kidney Problem [61] Visit Diagnosis:Other specified disorders of kidney and ureter [N28.89] Order(s):CT KIDNEY WO/W IVCON [[id number]] Order #: [id number] FUTURE iv contrast (will be provided with [...] Encounter Status:Closed by YADI WHITE on 04/21/20 [facility] PROGRESSon 04-21-2020 PROGRESS HNO ID: [id number] Author: Yadi White Service: ? Author Type: Physician Type: Progress Notes Filed: 04/21/2020 3:13 PM Note Text: ?? [facility] LOCATION: [address] [place] [address] NEW CONSULT VISIT PATIENT INFO: Elizabeth Modi [...] MG DAILY@0800 October 12, 2019 7:37am 10-12-2019 [facility] ([id number]) gabapentin (NEURONTIN) 600 mg tablet Take 600 [...] with more than 50% of the total wqlj-eq-xfrd time of the visit in counseling / coordination of care. Yadi Whtie DO MBA Letter to: Dexter Reyes MD [facility] Office Visit (AGVASACC) ELIZABETH MODI ([id number]) 1940 M Date Time Provider Department 03/31/20 11:00 AM RYAN ALLEN During your visit today, we recorded the following information about you: Pulse Respiration Blood pressure Weight 78/minute 18/minute 124/70 88 kg Height 1.778 m Ryan Allen MD 03/31/2020 12:50 PM Signed I spent 15+ minutes in the visit, with more than 50% of+ the total nocj-ks-xhac time of the visit in counseling / coordination of care. This note partially generated using [employer] voice recognition system. Mr. Modi and his daughter were seen in the office today for follow-up of his peripheral vascular disease. He's feeling up a complicated wound in the right below-knee stump but also has a left great toe nonhealing wound. I believe this is being followed by the business account leader or the wound care center in the [facility]. He also notes that the prosthetic company is having trouble getting appropriate authorization for his prosthesis. Since the patient left I have call that office, [facility] [employer]. We have left a message from then [...] appropriate authorization for were reviewed needs from [employer]. He has had a urologist in the past but can't remember the name in the [facility]. I would refer to the primary care office if they feel appropriate urologist is available locally in this patient. If not we will be happy to refer to a urologist in the [facility]. Hopefully within the next few [...] runoffs Primary Visit Diagnosis:PVD (peripheral vascular disease) ([facility]) [I73.9] Other Visit Diagnoses:Below knee amputation ([facility]) [S88.119A] Type 2 diabetes mellitus with other specified complication, without long-term current use of insulin (HCC) [E11.69] Nonhealing nonsurgical wound [T14.8XXA] Prescriptions as [...] (HCC) [E44.0] 08/22/2019 PVD (peripheral vascular disease) ([facility]) [I73.9] 12/07/2019 Below knee amputation ([facility]) [S88.119A] 12/07/2019 Nonhealing surgical wound [T81.89XA] 12/09/2019 Letter Text Encounter Status:Closed by RYAN ALLEN MD on 03/31/20 [facility] PROGRESSon 03-31-2020 PROGRESS HNO ID: [id number] Author: Ryan Allen Service: ? Author Type: Physician Type: Progress Notes Filed: 03/31/2020 12:50 PM Note Text: I spent 15+ minutes in the visit, with more than 50% of+ the total moka-ps-tmxb time of the visit in counseling / coordination of care. This note partially generated using [employer] voice recognition system. Mr. Modi and his daughter were seen in the office today for follow-up of his peripheral vascular disease. He's feeling up a complicated wound in the right below-knee stump but also has a left great toe nonhealing wound. I believe this is being followed by the business account leader or the wound care center in the [facility]. He also notes that the prosthetic company is having trouble getting appropriate authorization for his prosthesis. Since the patient left I have call that office, [facility] [employer]. We have left a message from then [...] appropriate authorization for were reviewed needs from [employer]. He has had a urologist in the past but can't remember the name in the [facility]. I would refer to the primary care office if they feel appropriate urologist is available locally in this patient. If not we will be happy to refer to a urologist in the [facility]. Hopefully within the next few [...] statin and aspirin medications. Normal [facility] CNPNon 03-04-2020 CNPN Telephone (AGDataCrowdACC) ELIZABETH MODI ([id number]) 1940 M Date Time Provider Department 03/04/20 RYAN ALLEN AGBLAIRACC During your visit today, we recorded the [...] Encounter Status:Closed by LUDIVINA WHITFIELD on 03/04/20 [facility] CTA ABD/PEL/LOWER EXT WO/W I VCONon 02-28-2020 CTA ABD/PEL/LOWER EXT WO/W IVCON Final Report DATE OF EXAM: Feb 28 2020 4:00PM [facility] 0465 - CTA ABD/PEL/LOWER EXT WO/W IVCON [...] renal protocol CT or MRI. 2. Right dofav-egc-mhka amputation. No subcutaneous fat stranding or fluid collection. Other chronic findings, as above. Ironing Pleater: PSCB Transcribe Date/Time: Mar 02 2020 2:59P Dictated by : ANDRE BUI MD This examination was interpreted and the report reviewed and electronically signed by: ANDRE BUI MD on Mar 02 2020 3:31PM EST Normal [facility] CNOVon 02-13-2020 CNOV Office Visit (AGVASACC) ELIZABETH MODI ([id number]) 1940 M Date Time Provider Department 02/13/20 1:30 PM MARIA ESTHER GUSMAN (FACING CUTTING MACHINE OPERATOR, DIESEL ENGINE ASSEMBLER)LUCRECIA During your visit today, we recorded the following information about you: Pulse Respiration Blood pressure Weight 76/minute 18/minute 118/64 88 kg Height 1.778 m Maria Esther Gusman APRN.GURWINDER, DIESEL ENGINE ASSEMBLER 02/13/2020 4:20 PM Signed Elizabeth Modi 79 [...] He has not been in contact with [employer] in some time, as he was advised to wait until cleared from the wound vac. Additionally, he reports that he's been seeing a financial retirement plan specialist for the wounds on his left [...] Stable post op; OK to follow-up with [employer] for RLE prosthetic; Will discuss with Dr. Allen plan for evaluation/treatment of LLE with continued wounds. PLAN: Will proceed with CTA to further evaluation LLE at this time. Pt encouraged to call with any questions, problems, concerns, or changes. The patient is currently taking a statin: Yes The patient is currently taking aspirin: Yes Maria Esther Gusman, FACING CUTTING MACHINE OPERATOR.DIESEL ENGINE ASSEMBLER Referring Provider: SELF [200] Allergies As of [...] [I99.8] Order(s):CTA ABD/PEL LOWER EXTREM WO/W IVCON [[id number]] Order #: [id number] FUTURE iv contrast (will be provided with [...] EachRfl: 0 CREATININE BLD [SQCRET] Order #: [id number] FUTURE Prescriptions as of 02/13/2020 Sig: INSULIN [...] GUSMAN CNP on 02/13/20 Normal [facility] PROGRESSon 02-13-2020 PROGRESS HNO ID: [id number] Author: Maria Esther (Dobby Loom Fixer Lost Charge Card Clerk) GURWINDER Gusman Service: ? Author Type: Nurse Practitioner Type: Progress Notes Filed: 02/13/2020 4:20 PM Note Text: Elizabeth Modi 79 year old male S/P Guilwilnerine right above ankle/below-knee amputation; Angiogram with bilateral [...] He has not been in contact with [employer] in some time, as he was advised to wait until cleared from the wound vac. Additionally, he reports that he's been seeing a financial retirement plan specialist for the wounds on his left [...] Stable post op; OK to follow-up with [employer] for RLE prosthetic; Will discuss with Dr. Allen plan for evaluation/treatment of LLE with continued wounds. PLAN: Will proceed with CTA to further evaluation LLE at this time. Pt encouraged to call with any questions, problems, concerns, or changes. The patient is currently taking a statin: Yes The patient is currently taking aspirin: Yes Maria Esther Gusman APRN.GURWINDER [facility] Beau 02-05-2020 JONAS Telephone (AGDataCrowdACC) ELIZABETH MODI ([id number]) 1940 M Date Time Provider Department 02/05/20 RYAN ALLEN During your visit today, we recorded the following information about you: Luke Pérez LPN 02/05/2020 10:51 AM Signed Millie from [facility] called stating that there has been [...] AM Signed Relayed information to [facility] nurse. Acknowledged new order for wet [...] Status:Closed by LUKE PÉREZ LPN on 02/05/20 [facility] CNOVon 01-08-2020 CNOV Office Visit (RUBYACC) ELIZABETH MODI ([id number]) 1940 M Date Time Provider Department 01/08/20 3:30 PM RYAN ALLEN During your visit today, we recorded the following information about you: Pulse Respiration Blood pressure Weight 78/minute 18/minute 126/70 88.9 kg Height 1.778 m Ryan Allen MD 01/08/2020 4:01 PM Signed This note was partially generated using [employer] voice recognition system. Is a postop visit [...] [S88.119A] Other Visit Diagnosis:PVD (peripheral vascular disease) ([facility]) [I73.9] Prescriptions as of 01/08/2020 Sig: INSULIN [...] (HCC) [E44.0] 08/22/2019 PVD (peripheral vascular disease) ([facility]) [I73.9] 12/07/2019 Below knee amputation ([facility]) [S88.119A] 12/07/2019 Nonhealing surgical wound [T81.89XA] 12/09/2019 Disposition: Return in about 4 weeks (around 02/05/2020). Follow-up and Disposition History Recorded Letter Text Encounter Status:Closed by RYAN ALLEN MD on 01/08/20 [facility] 01-08-2020 [facility] Telephone (LUCRECIA) ELIZABETH MODI ([id number]) 1940 M Date Time Provider Department 01/08/20 RYAN ALLEN During your visit today, we recorded the following information about you: Luke Pérez LPN 01/08/2020 1:18 PM Signed Millie [facility] nurse called to let us know that they are extending the home care to once a week x 5 weeks. Still currently has wound vac. Drainage and blood noted per nurse. Depth of 0.25mm. Maria Esther Gusman APRN.GURWINDER, GURWINDER 01/08/2020 1:42 PM Signed Noted. Thank you, Maria Esther Gusman APRN.CNP Allergies As of Date: 01/08/2020 (No Known Allergies) Date Reviewed: 12/10/2019 Reviewed by: Lois (Rn) YURI Mccall - Fully Assessed Reason for Visit: [...] by MARIA ESTHER GUSMAN CNP on 01/08/20 [facility] PROGRESSon 01-08-2020 PROGRESS HNO ID: [id number] Author: Ryan Allen Service: ? Author Type: Physician Type: Progress Notes Filed: 01/08/2020 4:01 PM Note Text: This note was partially generated using [employer] voice recognition system. Is a postop visit [...] make progress with wound. Normal [facility] CASE MANAGEMon 12-11-2019 CASE MANAGEM HNO ID: [id number] Author: Tami (Yuri) YURI Patricio Service: Care Management Author Type: Registered Nurse Type: Care Mgt Progress Note Filed: 12/11/2019 3:28 PM Note Text: CARE MANAGEMENT DISCHARGE NOTE SERVICE DATE: 12/11/2019 SERVICE TIME: 3:27 PM LOS: 2 days Admission Date: 12/09/2019 DISCHARGE ARRANGEMENT (list agency and phone number) Discharge Arrangement: Home Longterm Care: Nursing;OT;PT Provider [facility]: [facility] Phone: . CAREGIVER ASSESSMENT: Caregiver is ready, willing and able to meet the patient's needs as recommended by the inter-professional team:: Yes Does the patient have an acute stroke diagnosis, or has the patient had a stroke during this admission?: No Patient's transition needs and plan for meeting these needs: Home with [facility]. HANDOFF COMMUNICATION: TRANSPORTATION ARRANGEMENTS: Transportation Arrangements: Car ADDITIONAL CONTACT RESOURCES: Pts wound vac approved through [facility]. SIGNATURE: Tami Patricio RN PATIENT NAME: Elizabeth Modi DATE: December 11, 2019 TIME: 3:27 PM PAGER/CONTACT #: [phone] [facility] CONSULT PROGon 12-11-2019 CONSULT PROG HNO ID: [id number] Author: Adali Murry Service: Wound Care Team Author Type: Nurse Specialist Type: Consult Progress Note Filed: 12/11/2019 2:39 PM Note Text: WOUND CARE CONSULT FACING CUTTING MACHINE OPERATOR NOTE SERVICE DATE: 12/11/2019 SERVICE TIME: 1315 TIME SPENT (minutes): 45 REASON FOR CONSULT: Eval R BKA, wound vac change CHIEF COMPLAINT: c/o open wound to R lateral BKA Subjective HISTORY OF PRESENT ILLNESS: Mr. Modi is a 79 year old male who is seen today with [facility] Wound/general manager [employer], and presented to hospital w/ R BKA [...] found under the Get Images tab on Outline. Photos are uploaded by the wound ocular care technologist and may not be immediately available for viewing. Contact the wound and ostomy care department with questions. SIGNATURE: Adali Murry APRN.CHECK EMBOSSER PATIENT NAME: Elizabeth Modi DATE: December 11, 2019 TIME: 2:24 PM CONTACT#: [id number] Normal [facility] Glucose Meteron 12-11-2019 Glucose [Mass/Vol] 126 mg/dL High 70-99 [facility] Comment on above: Result Comment: YURI Briones OTIFIED Performed By: #### M AG #### [facility] [address] [place] [address] OPERATIVE NOon 12-11-2019 OPERATIVE NO HNO ID: [id number] Author: Ryan Allen Service: ? Author Type: Physician Type: Operative Report Filed: 12/11/2019 1:51 PM Note Text: [facility] - Operative Report ELIZABETH MODI : 1940 AGE: 79. SEX: M PATIENT TYPE: I HOSP SV: [facility] LOCATION: [facility] ATTENDING PHYSICIAN: RYAN ALLEN CSN NUMBER: [id number] DATE OF SURGERY/PROCEDURE: 12/09/2019 INCISION/PROCEDURE START TIME: 10:54 AM INCISION CLOSE/PROCEDURE END TIME: 11:10 AM PREOPERATIVE DIAGNOSIS: Nonhealing wound, status post right below-knee amputation. POSTOPERATIVE DIAGNOSIS: Nonhealing wound, status post right below-knee amputation. SURGEON: Ryan Allen MD, FACS STAIN APPLICATOR: 1. Sunny Brito MD. 2. Mara Godinez SA. SURGERY/PROCEDURE: Irrigation and debridement of right lower extremity wound with placement of wound VAC. ANESTHESIA: General HISTORY: This is a 79-year-old gentleman, who has undergone multiple procedures with the Vascular Service at [facility]. Ultimately, unfortunately this has terminated in a below-knee amputation. In his followup, he was seen at the [facility] office in [place] by Dr. Gordo Figueroa and it was [...] satisfactory postoperative condition. Ryan Allen MD, FACS RGN:[id number] /[id number] cc:Macho Reyes MD [facility] PLAN OF CAREon 12-11-2019 PLAN OF CARE HNO ID: [id number] Author: Olga Parekh (Reiki Practitioner) Service: ? Author Type: ? Type: Plan of Care Filed: 12/11/2019 11:33 AM Note Text: PRICING ACTUARY BEDSIDE DELIVERY SURVEY 1. Patient to use [facility] Bedside Delivery - YES Insurance Information as follows: 2. Insurance card on file - YES 3. Credit card for payment - N/A Please call pharmacy bedside delivery at [phone] or [phone] if patient would like medications filled and delivered prior to discharge. Olga Parekh (Reiki Practitioner) [facility] PROGRESSon 12-11-2019 PROGRESS HNO ID: [id number] Author: Rohan Duran DO Service: Vascular Surgery [...] questions or concerns Mon-Fri 6a-5p please page [phone]. After 5pm and on Weekends and Holidays, please page [phone] if in ICU or [phone] if on RNF. Subjective SUBJECTIVE: NAEON. Did [...] kg/m? O2 Therapy: Room Air IANDO: Date 12/10/19699 - 12/11/1965812/11/19699 - 12/12/1958 Shift 4722-8885 4782-8739 8178-0649 24 Hour Total 5835-9128 0716-0202 4230-4348 24 Hour Total INTAKE Shift Total OUTPUT Urine 295 096 1663 Void (ml) 913 386 5053 Drains 0 0 Negative Pressure: Output (mL) 0 0 # of BMs Number of BMs 1 x 1 x Shift Total 913 293 5180 Weight (kg) 88.2 88.2 88.2 88.2 88.2 [...] 2174 if on RNF. Normal [facility] PT EDon 12-11-2019 PT ED HNO ID: [id number] Author: Isac Navarro (Pharmacist) Service: Pharmacy Author [...] take if medication dose is missed. ISAC NAVARRO PHARMACIST December 11, 2019 4:33 PM Medication [...] drug: Cholecalciferol (Vitamin D3) Normal [facility] THERAPY NTon 12-11-2019 THERAPY NT HNO ID: [id number] Author: Maricarmen SantiagoOtr/LSmitha Good Service: Occupational Therapy Author Type: Occupational Therapist Type: Therapy (PT/OT/Speech/Resp) Filed: 12/11/2019 3:31 PM Note Text: Occupational Therapy Evaluation SERVICE DATE: 12/11/2019 SERVICE TIME: 1435 to 1459 ROOM: [place] [address] Recommended Discharge Disposition: Home OT Recommended Discharge [...] living (ADL) Interventions Provided: Evaluation $ Evaluation-Moderate (77282) Billed Units: 1 unit OT Evaluation Moderate [...] details for this therapy evaluation/treatment. SIGNATURE: NADIR Hopper/Serene PATIENT NAME: Elizabeth Modi DATE: December 11, 2019 TIME: 3:28 PM Normal [facility] THERAPY NT HNO ID: [id number] Author: Marilyn Flores Service: Physical Therapy Author Type: Physical Therapist Type: Therapy (PT/OT/Speech/Resp) Filed: 12/11/2019 2:48 PM Note Text: Physical Therapy Evaluation SERVICE DATE: 12/11/2019 SERVICE TIME: 1341 to 1408 ROOM: [place] [address] Recommended Discharge Disposition: Home PT Recommended Discharge [...] Difficulty walking-musculoskeleta l Interventions Provided: Evaluation;Therapeutic Activity (11302) $ Evaluation-Moderate (17557) Billed Units: 1 unit History and examination of body systems see assessment section above. This patient?s clinical presentation is evolving. The patient required a moderate complexity evaluation. Therapeutic Activity (94968) Treatment Minutes: 11 1 unit Skilled Intervention(s): [...] 2019 TIME: 2:44 PM Normal [facility] Basic Metabolic Panelon 06- Anion gap [Moles/Vol] 13 mmol/L Normal 9-18 [facility]r on [facility] Comment on above: Performed By: #### C BC1 #### [facility] [address] [place], [place] [address] Calcium [Mass/Vol] 9.0 mg/dL Normal 8.5-10.2 [facility] Comment on above: Performed By: #### C BC1 #### [facility] [address] [place], [place] [address] Chloride [Moles/Vol] 100 mmol/L Normal 97-105 [facility] Comment on above: Performed By: #### C BC1 #### [facility] [address] [place], [place] [address] CO2 Blood 25 mmol/L Normal 22-30 [facility] Comment on above: Performed By: #### C BC1 #### [facility] [address] [place], [place] [address] Creatinine [Mass/Vol] 1.14 mg/dL Normal 0.73-1.22 [facility] Comment on above: Performed By: #### C BC1 #### [facility] [address] [place], [place] [address] Glucose [Mass/Vol] 113 mg/dL High 74-99 [facility] Comment on above: Result Comment: The [place] Diabetes Association (ADA) provides guidance for cutoff [...] Standards of Medical Care in Diabetes 2016; [employer] Diabetes Association. Diabetes Care. 2016;39(Suppl 1). Performed By: #### C BC1 #### [facility] [address] [place], [place] [address] Potassium [Moles/Vol] 4.1 mmol/L Normal 3.7-5.1 [facility] Comment on above: Performed By: #### C BC1 #### [facility] [address] [place], [place] [address] Sodium [Moles/Vol] 138 mmol/L Normal 136-144 [facility] Comment on above: Performed By: #### C BC1 #### [facility] [address] [place], [place] [address] Urea nitrogen [Mass/Vol] 22 mg/dL Normal 9-24 [facility] Comment on above: Performed By: #### C BC1 #### [facility] [address] [place], [place] [address] CASE MGT INIT ASSESon 2019 CASE MGT INIT ASSES HNO ID: [id number] Author: Tami SantiagoRn) YURI Patricio Service: Care Management Author Type: Registered Nurse Type: Care Mgt Initial Assessment Filed: 12/10/2019 10:48 AM Note Text: CARE MANAGEMENT: ASSESSMENT AND DISCHARGE PLAN SERVICE DATE: December 10, 2019 SERVICE TIME: 10:47 AM PRIMARY CARE PHYSICIAN: Dexter Reyes MD ADMISSION STATUS: Inpatient Needs Prior to Discharge: Home Care Order MEDICAL: [facility] Patient/Warehousing Technician Stated Goals: To have reduction in symptoms Health Insurance: [place] [facility] Issues Impacting Discharge Plan: None Last Discharge Date: 09/11/19 Is this Within the Past 30 days? Last discharge within 30 days: No Advance Directive: Current Advance Directive: Health Care Power of Salmon Gillnet Vessel Operator In Chart: No Apprentice/Lineman Attempted to Assist with AD Completion: No [...] Services or Home Care?: Home Health Care Agency([facility]) Equipment Prior to Admission: Wheelchair;Other: See Comment(Electric [...] Mostly I feel financially burdened by my [id number]-[id number] expenses for my prescription medication:: 0 - Disagree Somewhat Risk Score: 0 Patient is categorized as: Low risk < 2 Are you interested in bedside delivery of your medications? No Is Patient Psychosocially Complex?: No ASSESSMENT AND PLAN: Medical Needs: Medical Needs: Two or more chronic diseases Psychosocial Needs: Psychosocial Needs: None FREEDOM OF CHOICE EXPLAINED: [place] of Choice Given: Yes(Pt would like to resume hhc with [facility].) POTENTIAL TRANSITION PLANS Home Care Spoke with pt at the bedside. Pt states that he has been staying with his daughter. [facility] Plan for pt to return home with [facility]. Pt will need wound vac at d/c- script placed on chart to be signed. Family to transport home when medically stable. Will follow. SIGNATURE: Tami Patricio RN PATIENT NAME: Elizabeth Modi DATE: December 10, 2019 TIME: 10:47 AM PAGER/CONTACT #: [phone] Normal [facility] Hemogramon 12-10-2019 Erythrocyte distribution width (RBC) [Ratio] 14.1 % Normal 11.6-14.4 [facility] Comment on above: Performed By: #### P 8 #### [facility] [address] [place], [place] [address] Hematocrit (Bld) [Volume fraction] 38.9 % Low 40.1-51.0 [facility] Comment on above: Performed By: #### P 8 #### [facility] [address] [place], [place] [address] Hemoglobin (Bld) [Mass/Vol] 12.3 g/dL Low 13.7-17.5 [facility] Comment on above: Performed By: #### P 8 #### [facility] [address] [place] [address] MCH (RBC) [Entitic mass] 27.8 pg Normal 25.7-32.2 [facility] Comment on above: Performed By: #### P 8 #### [facility] [address] [place] [address] MCHC (RBC) [Mass/Vol] 31.6 % Low 32.3-36.5 [facility] Comment on above: Performed By: #### P 8 #### [facility] [address] [place] [address] MCV (RBC) [Entitic vol] 88.0 fL Normal 83.2-95.6 [facility] Comment on above: Performed By: #### P 8 #### [facility] [address] [place] [address] Platelet mean volume (Bld) [Entitic vol] 10.5 fL Normal 8.7-12.0 [facility] Comment on above: Performed By: #### P 8 #### [facility] [address] [place], [place] [address] Platelets (Bld) [#/Vol] 285 thou/cmm Normal 141-365 [facility] Comment on above: Performed By: #### P 8 #### [facility] [address] [place], [place] [address] RBC (Bld) [#/Vol] 4.42 mil/cmm Low 4.63-6.08 [facility] Comment on above: Performed By: #### P 8 #### [facility] [address] [place] [address] RDW SD 45.4 fl Normal 36.1-45.8 [facility] Comment on above: Performed By: #### P 8 #### [facility] [address] [place], [place] [address] WBC (Bld) [#/Vol] 9.86 thou/cmm High 4.23-9.07 [facility] Comment on above: Performed By: #### P 8 #### [facility] [address] [place] [id number] MDRD GFRon 12-10-2019 GFR/1.73 sq M predicted among non-blacks MDRD (S/P/Bld) [Vol rate/Area] mL/min/{1.73_m2} Normal >60mL/min/1 .73m2 [facility] Comment on above: Result Comment: If t he patient is , multiply the result by 1.210. Performed By: #### M AG #### [facility] [address] [place], [place] [address] PLAN OF CAREon 12-10-2019 PLAN OF CARE HNO ID: [id number] Author: Isac Navarro (Pharmacist) Service: Pharmacy Author [...] medication history: Yes Reconciliation completed? 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 After 5pm and on Weekends and Holidays, please page [phone] if in ICU or [phone] if on RNF. Subjective SUBJECTIVE: NAEON. Tolerating [...] Air IANDO: Date 12/09/19 07 - 12/10/19 0612/10/19699 - 12/11/19 0659 Shift 5940-0769 6937-1305 2550-2943 24 Hour Total 4033-1158 1960-8313 7833-0653 24 Hour Total INTAKE IV 400 400 OR Crystalloid intake (mL) 300 300 Volume (mL) (lactated ringers infusion) 100 100 Shift Total 400 400 OUTPUT Urine 409 818 3188 Void (ml) 496 008 7388 Shift Total 836 668 1151 Weight (kg) 88.2 88.2 88.2 88.2 88.2 [...] questions or concerns Mon-Fri 6a-5p please page [phone]. After 5pm and on Weekends and Holidays, please page [phone] if in ICU or [phone] if on RNF. Normal [facility] ANES [place] 12-09-2019 ANES POST HNO ID: [id number] Author: Sal Ochoa Service: Anesthesiology Author Type: [...] 09, 2019 TIME: 11:41 AM PAGER/CONTACT #: [facility] ANES PREOPon 12-09-2019 ANES PREOP HNO ID: [id number] Author: Sal Ochoa Service: Anesthesiology Author Type: [...] File Prior to Encounter Medication Sig - djiup-7c-kob-epa-fish oil-D3 667-250 mg-unit cap Take 1 tablet [...] injection (XYLOCAINE) 0.1-0.2 mL INTRADERMAL PRN Ryan Cuevas Maidaguadalupe - lactated ringers infusion 5-30 mL/hr INTRAVENOUS CONTINUOUS Ryan Cuevas Maidaguadalupe - ceFAZolin iv piggyback 2 g in D5W (iso-osmotic) 100 mL (ANCEF) 2 g INTRAVENOUS Pre-Op Once Ryan Swansonanthonyguadalupe Allergies: ALLERGIES No Known Allergies DOS EXAM: [...] December 09, 2019 TIME: 9:05 AM CSN: [id number] [facility] BRIEF OP NOTon 12-09-2019 BRIEF OP NOT HNO ID: [id number] Author: Sunny Brito Service: Vascular Surgery Author [...] BRIEF OPERATIVE / PROCEDURE NOTE LOG ID: [id number] SURGERY/PROCEDURE DATE: 12/09/2019 INCISION/PROCEDURE START TIME: 10:54 AM INCISION CLOSE/PROCEDURE END TIME: 11:10 AM SURGEON(S)/PROCEDURALI ST(S) AND STAIN APPLICATOR(S): Surgeon(s) and Role: * Ryan Allen - Primary * Sunny Brito - Resident - Assisting Extension Supervisor: Mara Godinez SA SURGERY/PROCEDURE(S): irrigation and debridement right lower extremity wound, placement of wound vac ANESTHESIA: General FINDINGS: draining right lower extremity wound ESTIMATED BLOOD LOSS: 2 mls SPECIMENS: debrided tissue COMPLICATIONS: None PRE-OP/PRE-PROCEDURE DIAGNOSIS: right lower extremity wound POST-OP/POST-PROCEDURE DIAGNOSIS: Same as Preop SIGNATURE: Sunny Brito MD PATIENT NAME: Elizabeth Modi DATE: December 09, 2019 TIME: 11:45 AM PAGER/CONTACT #: Normal [facility] Cult and Smr CAROLINE and AERon 0 12-09-2019 Cult and Smr CAROLINE and AER Test performed at [facility] Moderate Mixed skin javier. No anaerobic organisms cultured Few Gram positive cocci Few Polymorphonuclear leukocytes Normal [facility] Comment on above: Performed By: #### P 8 #### [facility] [address] [place] [address] HISTORY PHYSICALon 0 HISTORY PHYSICAL HNO ID: [id number] Author: Sunny Brito Service: Vascular Surgery Author [...] , Rfl: , 12/08/2019 at Unknown time xmbbl-6d-zte-epa-fish oil-D3 667-250 mg-unit cap, Take 1 tablet [...] 09, 2019 TIME: 10:14 AM PAGER/CONTACT #: [phone] Normal [facility] NURSING PROGon 12-09-2019 NURSING PROG HNO ID: [id number] Author: Dakota (Rn) YURI Rodriguez Service: ? Author Type: Registered Nurse Type: Nursing Progress Note Filed: 12/09/2019 12:59 PM Note Text: FBG done by Belkis VALE [facility] PROGRESSon 12-07-2019 PROGRESS HNO ID: [id number] Author: Gordo Figueroa Service: ? Author Type: [...] Outpatient Medications Medication Sig Dispense Refill - fwqch-6s-psb-epa-fish oil-D3 667-250 mg-unit cap Take 1 tablet [...] up with us next Monday at the [place] facility. Gordo Figueroa MD [facility] 12-06-2019 [facility] Office Visit (AGMIL) ELIZABETH MODI ([id number]) 1940 M Date Time Provider Department 12/06/19 [...] Outpatient Medications Medication Sig Dispense Refill - goctj-3l-fvq-epa-fish oil-D3 667-250 mg-unit cap Take 1 tablet [...] up with us next Monday at the [place] facility. Gordo Figueroa MD Referring Provider: SELF [200] Allergies As of Date: 12/06/2019 (No Known Allergies) Date Reviewed: 12/06/2019 Reviewed by: Ryan Allen - Fully Assessed Reason for Visit: Peripheral Vascular Disease (PVD) [3545] Cmt: Elizabeth is post op 09/05/19 Revision Rt BKA Primary Visit Diagnosis:PVD (peripheral vascular disease) (HCC) [I73.9] Other Visit Diagnosis:Below knee amputation (HCC) [S88.119A] Prescriptions as of 12/06/2019 Sig: OMEGA-3S 667 NL-YZA-IXN-FISH * Take 1 tablet by mouth once [...] Status:Closed by GORDO FIGUEROA MD on 12/07/19 [facility] Beau 12-06-2019 CNPN Telephone ([employer]) ELIZABETH MODI ([id number]) 1940 M Date Time Provider Department 12/06/19 RYAN ALLEN During your visit today, we recorded the following information about you: Allergies As of Date: 12/06/2019 (No Known Allergies) Date Reviewed: 12/06/2019 Reviewed by: Gordo Figueroa - Fully Assessed Reason for Visit: Schedule Surgery [1330] Primary Visit Diagnosis:PVD (peripheral vascular disease) (HCC) [I73.9] Order(s):SURGICAL REQUEST - ELECTIVE [2056669] Order #: [id number]: 1 HANDP FOR SURGERY [[id number]] Order #: [id number] PRE-PROCEDURE AND PRE-OPERATIVE COVID [SQPOCOVD] Order #: [id number] FUTURE CBC [SQCBC] Order #: [id number] FUTURE BASIC METABOLIC PNL [SQBMP] Order #: [id number] FUTURE PROTHROMBIN TIME/PT [SQPT] Order #: [id number] FUTURE Prescriptions as of 12/06/2019 Sig: OMEGA-3S 667 LH-RUP-LYT-FISH * Take 1 tablet by mouth once [...] Status:Closed by RYAN ALLEN MD on 12/06/19 [facility] HOSPon 12-06-2019 HOSP Patient:Elizabeth Modi MRN: Height:5' 10"(1.778 m) Weight:186 lb (84.369 kg) Outpatient Medications as of 12/09/19: bapbj-8s-rxm-epa-fish oil-D3 667-250 mg-unit cap zinc sulfate (ORAZINC [...] the following basenames: K,HCT Progress Notes ([facility]): Gordo Figueroa MD 12/07/2019 10:39 [...] Outpatient Medications Medication Sig Dispense Refill - rgvxj-8l-mqa-epa-fish oil-D3 667-250 mg-unit cap Take 1 tablet [...] up with us next Monday at the [place] facility. Gordo Figueroa MD [facility] CASE MANAGEMon 09-11-2019 CASE MANAGEM HNO ID: [id number] Author: Tiffanie SantiagoRn) YURI Travis Service: Care Management Author Type: Registered Nurse Type: Care Mgt Progress Note Filed: 09/11/2019 12:54 PM Note Text: CARE MANAGEMENT DISCHARGE NOTE SERVICE DATE: 09/11/2019 SERVICE TIME: 12:42 PM LOS: 21 days Admission Date: 08/21/2019 DISCHARGE ARRANGEMENT (list agency and phone number) Discharge Arrangement: [facility] facility Was an expedited discharge program used?: No [facility] CARE[facility] ASSESSMENT: HANDOFF COMMUNICATION: Handoff to: Primary Care Physician TRANSPORTATION ARRANGEMENTS: Transportation Arrangements: Ambulance/[place] [employer] Agency and Phone #:: [facility] ( [facility] ) [phone] / [phone] Type of Service: BLS Non-emergency Is Patient Medicaid Pending?: No Discussion of financial coverage occurred with: Family Keg Inspector Location: [facility] Destination: [facility] Financial Care Management Responsibility: None ADDITIONAL CONTACT RESOURCES: none Auth is obtained and patient has been discharged to [facility]. [email or web address] is transporting patient via cot at 13:00. Patient notified of discharge. He initially resisted stating he wanted to go to [facility]. Explained that he asked [employer] to have his dtr Angelic makethe decision and she chose [facility]. Patient reluctantly agreed to discharge. Encouraged patient to discuss with staff there if he is not happy with the rehab and still wishes to go to [place]. Patent's dtr Angelic notified. SIGNATURE: Tiffanie Travis RN PATIENT NAME: Elizabeth Modi DATE: September 11, 2019 TIME: 12:41 PM PAGER/CONTACT #: [phone] [facility] CASE MANAGEM HNO ID: [id number] Author: Tiffanie SantiagoRn) YURI Travis Service: Care Management Author Type: Registered Nurse Type: Care Mgt Progress Note Filed: 09/11/2019 9:48 AM Note Text: CARE MANAGEMENT PROGRESS NOTE SERVICE DATE: 09/11/2019 SERVICE TIME: 9:47 AM LOS: 21 days Auth received for [facility]. MD notified. SIGNATURE: Tiffanie Travis RN PATIENT NAME: Elizabeth Modi DATE: September 11, 2019 TIME: 9:47 AM PAGER/CONTACT #: [phone] [facility] CONSULT PROGon 09-11-2019 CONSULT PROG HNO ID: [id number] Author: Doris Eden Service: Endocrinology Author Type: Physician Type: Consult Progress Note Filed: 09/11/2019 7:56 AM Note Text: ENDOCRINOLOGY CONSULT PROGRESS NOTE SERVICE DATE: 09/11/2019 SERVICE TIME: 7:40 AM Subjective INTERVAL HPI: Pt followed for diabetes mellitus type 2 with complications. Tr from [place]; adm for right foot infection and gangrene; [...] 7:56 AM PAGER: [phone] Normal [facility] Glucose Meteron 09-11-2019 Glucose [Mass/Vol] 173 mg/dL High 70-99 [facility] Comment on above: Result Comment: YURI N OTIFIED Performed By: #### G LMET #### [facility] [address] [place] [address] NUTRITIONon 09-11-2019 NUTRITION HNO ID: [id number] Author: Snow Serna Service: Nutrition Therapy Author Type: Registered Dietitian Type: Nutrition Filed: 09/11/2019 12:51 PM Note Text: NUTRITION THERAPY PROGRESS NOTE SERVICE DATE: 09/11/2019 SERVICE TIME: 12:36 PM Nutrition Assessment: Recommended Malnutrition Diagnosis: Moderate Protein-Calorie Malnutrition (09/06/19 1155 : Tanja Byrne RD) Estimated kilocalorie needs: 6703-8281 Calorie Calculation Method: 30-35 kcals/kg Estimated protein [...] September 11, 2019 TIME: 12:36 PM PAGER: [phone] [facility] PLAN OF CAREon 09-11-2019 PLAN OF CARE HNO ID: [id number] Author: Francine Pineda (Pharmacist) Service: Pharmacy Author [...] PHARMACIST September 11, 2019 11:45 AM Pager: [phone] 09/11/2019 11:45 AM Medication List START taking [...] oxyCODONE IR 5 mg immediate release tablet [facility] PROGRESSon 09-11-2019 PROGRESS HNO ID: [id number] Author: Tom Prescott DO Service: General Surgery [...] questions or concerns Mon-Fri 6a-5p please page [phone]. After 5pm and on Weekends and Holidays, please page [phone] if in ICU or [phone] if on RNF. Subjective SUBJECTIVE: Patient seen and examined this morning. SARATH. States his pain is currently 8/10 in severity, took tylenol mostly for pain control. Dressing taken down this morning, incision examined. Still awaiting precert at [place]. Continues to do knee exercises, in knee [...] 0659 09/11/19 0700 - 09/12/19 0659 Shift 8513-9298 6333-1906 2366-2830 24 Hour Total 6969-5094 4438-6166 2103-8159 24 Hour Total INTAKE PO 120 120 PO 120 120 Shift Total 120 120 OUTPUT Urine 276 221 6738 2120 Void (ml) 709 111 8738 2120 Urine Not Saved. 1 x 1 x # of BMs Number of BMs 1 x 1 x 2 x Shift Total 557 301 8940 2120 Weight (kg) 87.7 87.7 87.6 87.6 [...] C/D/I with luly- healing well, minimal edema-stump electrical prospecting engineer in place. SKIN: Skin color, texture, turgor normal, No rashes or lesions ASSESSMENT AND PLAN: ACTIVE PROBLEM LIST Gangrene of Foot (Hcc) Diabetes (Hcc) Htn (Hypertension) Dyslipidemia Hypothyroidism Malnutrition of Moderate Degree (Hcc) Assessment: 79 year old male with PMH of thyroid disease, HTN, dyslipidemia,claudicat ion, DM. 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 Antibiotics stopped 08/23, remains non-septic. 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 09/02 PVR R calf 0.51, R low thigh 0.74. 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 Allen SIGNATURE: Tom Prescott DO PATIENT NAME: Elizabeth Modi DATE: September 11, 2019 TIME: 6:48 AM Vascular AND Thoracic Surgery Service Pager: For questions or concerns Mon-Mon 6a-5p please page [phone]. After 5pm and on Weekends and Holidays, please page [phone] if in ICU or [phone] if on RNF. Normal [facility] THERAPY NTon 09-11-2019 THERAPY NT HNO ID: [id number] Author: Ramón ([place]) Poppy Service: Physical Therapy Author Type: [employer] Type: Therapy (PT/OT/Speech/Resp) Filed: 09/11/2019 12:04 PM Note Text: Attestation signed by Tori Graham at 09/12/2019 3:52 PM I reviewed and agree with the documentation corresponding to this therapy visit. SIGNATURE: Tori Graham PT DATE: September 12, 2019 TIME: 3:52 PM Physical Therapy Treatment SERVICE DATE: 09/11/2019 SERVICE TIME: 1036 to 1111 ROOM: [place] [address] Recommended Discharge Disposition: Acute Rehab Recommended Discharge [...] l;Muscle Weakness (generalized) Interventions Provided: Therapeutic Exercise (99511);Therapeutic Activity (83628) Therapeutic Exercise (05541) Treatment Minutes: 18 1 unit Skilled Intervention(s): [...] and quad sets x10 hour. Therapeutic Activity (12851) Treatment Minutes: 17 1 unit Skilled Intervention(s): [...] Lives With: Self/Alone Assistance Available: real time trader Entry To Home: Stairs;With Rail Number Of [...] 2019 TIME: 11:55 AM Normal [facility] CONSULT PROGon 09-10-2019 CONSULT PROG HNO ID: [id number] Author: Doris Eden Service: Endocrinology Author Type: Physician Type: Consult Progress Note Filed: 09/10/2019 7:55 AM Note Text: ENDOCRINOLOGY CONSULT PROGRESS NOTE SERVICE DATE: 09/10/2019 SERVICE TIME: 7:35 AM Subjective INTERVAL HPI: Pt followed for diabetes mellitus type 2 with complications. Tr from [place]; adm for right foot infection and gangrene; [...] RRR Abdomen soft, no masses Extremities: has dressing/electrical prospecting engineer on R leg stump; dressing on left [...] September 10, 2019 TIME: 7:55 AM PAGER: [phone] Normal [facility] PROGRESSon 09-10-2019 PROGRESS HNO ID: [id number] Author: Jennifer Crooks Service: Vascular Surgery Author [...] kg/m? O2 Therapy: Room Air IANDO: Date 09/09/19 0700 - 09/10/19 0659 09/10/19 0700 - 09/11/19 0659 Shift 1399-4977 3028-4545 8573-5960 24 Hour Total 1903-3641 0905-9453 9951-6183 24 Hour Total INTAKE Shift Total OUTPUT Urine 633 764 0998 Void (ml) 806 256 6025 # of BMs Number of BMs 1 x 1 x 2 x Shift Total 794 068 3099 Weight (kg) 87.7 87.7 87.7 87.7 87.7 [...] lower extremity angiogram with partial occlusion R VENTILATION EQUIPMENT TENDER, reconstitution at R below knee pop, 2-vessel runoff. Antibiotics stopped 08/23, remains non-septic. 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 09/02 PVR R calf 0.51, R low thigh 0.74. 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 ? Plan: -?DIET HEART HEALTHY? 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 Dressing changed re-applied stump electrical prospecting engineer today. Knee immobilize q4hr - Pain control - PT/OT?recs:?acute rehab - SQH ppx - Mobilization as able, out of bed to chair?as tolerated - PAD - continue statin?and aspirin - Dispo planning: awaiting precert to [facility] Vascular AND Thoracic Surgery Service Pager: For questions or concerns Mon-Mon 6a-5p please page [phone]. After 5pm and on Weekends and Holidays, please page [phone] if in ICU or [phone] if on RNF. SIGNATURE: Jennifer Crooks MD PATIENT NAME: Elizabeth Modi DATE: September 10, 2019 TIME: 6:28 AM Pager: Normal [facility] THERAPY NTon 09-10-2019 THERAPY NT HNO ID: [id number] Author: Ramón Obrien) Poppy Service: Physical Therapy Author Type: [employer] Type: Therapy (PT/OT/Speech/Resp) Filed: 09/10/2019 12:18 PM Note Text: Attestation signed by Tori SantiagoPt) Santos at 09/11/2019 11:35 AM I reviewed and agree with the documentation corresponding to this therapy visit. SIGNATURE: Tori Graham, PT DATE: September 11, 2019 TIME: 11:35 AM Physical Therapy Treatment SERVICE DATE: 09/10/2019 SERVICE TIME: 1043 to 1108 ROOM: [id number] Recommended Discharge Disposition: Acute Rehab Recommended Discharge [...] l;Muscle Weakness (generalized) Interventions Provided: Therapeutic Activity (56531) Therapeutic Activity (49689) Treatment Minutes: 25 2 units Skilled Intervention(s): [...] Lives With: Self/Alone Assistance Available: real time trader Entry To Home: Stairs;With Rail Number Of [...] challenge or move without loss of balance -M: 4: Move to chair / commode Please see discipline specific clinical documentation flowsheet for complete details for this therapy evaluation/treatment. SIGNATURE: Ramón Mcwilliams PTA PATIENT NAME: Elizabeth Modi DATE: September 10, 2019 TIME: 12:09 PM Normal [facility] Basic Panelon 09-09-2019 Creatinine [Mass/Vol] 0.73 mg/dL Normal 0.67-1.17 [facility] Comment on above: Result Comment: Use of this assay is not recommended for patients undergoing treatment with phenindione, due to the potential for falsely depressed results. Performed By: #### C BC1 #### [place] [id number] Anion gap [Moles/Vol] 13 mmol/L Normal 8-16 [facility] Comment on above: Performed By: #### C BC1 #### [facility] [address] [place], [place] [address] CO2 [Moles/Vol] 24 mmol/L Normal 21-32 [facility] Comment on above: Performed By: #### C BC1 #### [facility] [address] [place], [place] [address] Urea nitrogen [Mass/Vol] 23 mg/dL High 7-18 [facility] Comment on above: Performed By: #### C BC1 #### [facility] [address] [place], [place] [address] Calcium [Mass/Vol] 8.9 mg/dL Normal 8.5-10.1 [facility] Comment on above: Performed By: #### C BC1 #### [facility] [address] [place], [place] [address] Glucose [Mass/Vol] 79 mg/dL Normal 70-99 [facility] Comment on above: Performed By: #### C BC1 #### [facility] [address] [place], [place] [address] Chloride [Moles/Vol] 100 mmol/L Normal 98-107 [facility] Comment on above: Performed By: #### C BC1 #### [facility] [address] [place], [place] [address] Potassium [Moles/Vol] 4.0 mmol/L Normal 3.5-5.1 [facility] Comment on above: Performed By: #### C BC1 #### [facility] [address] [place], [place] [address] Sodium [Moles/Vol] 133 mmol/L Low 136-145 [facility] Comment on above: Performed By: #### C BC1 #### [facility] [address] [place], [place] [address] CASE MANAGEMon 09-09-2019 CASE MANAGEM HNO ID: [id number] Author: Christina Crandall Sec Service: Care Management Author Type: ? Type: Care Mgt Progress Note Filed: 09/09/2019 11:40 AM Note Text: CARE MANAGEMENT PROGRESS NOTE SERVICE DATE: 09/09/2019 SERVICE TIME: 1000 LOS: 19 days IMM Follow Up Copy Given: Yes(verbal reminder given regarding IMM) Copy given to:: Patient Method: By Phone(ernestine harper) SIGNATURE: Christina Perez PATIENT NAME: Elizabeth Modi DATE: September 09, 2019 TIME: 11:40 AM PAGER/CONTACT #: [phone] [facility] CASE MANAGEM HNO ID: [id number] Author: Tami SantiagoRn) YURI Patricio Service: Care Management Author Type: Registered Nurse Type: Care Mgt Progress Note Filed: 09/09/2019 9:15 AM Note Text: CARE MANAGEMENT PROGRESS NOTE SERVICE DATE: 09/09/2019 SERVICE TIME: 9:14 AM LOS: 19 days Chart reviewed. Precert pending for [facility] rehab. Pt will need cot for transport at d/c. Will follow. SIGNATURE: Tami Patricio RN PATIENT NAME: Elizabeth Modi DATE: September 09, 2019 TIME: 9:14 AM PAGER/CONTACT #: [phone] [facility] CONSULT PROGon 09-09-2019 CONSULT PROG HNO ID: [id number] Author: Doris Eden Service: Endocrinology Author Type: Physician Type: Consult Progress Note Filed: 09/09/2019 8:25 AM Note Text: ENDOCRINOLOGY CONSULT PROGRESS NOTE SERVICE DATE: 09/09/2019 SERVICE TIME: 8:00 AM Subjective INTERVAL HPI: Pt followed for diabetes mellitus type 2 with complications. Tr from [place]; adm for right foot infection and gangrene; [...] RRR Abdomen soft, no masses Extremities: has dressing/electrical prospecting engineer on R leg stump; dressing on left [...] 8:25 AM PAGER: [phone] Normal [facility] Hemogramon 09-09-2019 Erythrocyte distribution width (RBC) [Ratio] 15.9 % High 11.6-14.4 [facility] Comment on above: Performed By: #### P 8 #### [address] [address] Hematocrit (Bld) [Volume fraction] 27.5 % Low 40.1-51.0 [facility] Comment on above: Performed By: #### P 8 #### [address] [address] Hemoglobin (Bld) [Mass/Vol] 8.8 g/dL Low 13.7-17.5 [facility] Comment on above: Performed By: #### P 8 #### [facility] [address] [place], [place] [address] MCH (RBC) [Entitic mass] 29.2 pg Normal 25.7-32.2 [facility] Comment on above: Performed By: #### P 8 #### [address] [address] MCHC (RBC) [Mass/Vol] 32.0 % Low 32.3-36.5 [facility] Comment on above: Performed By: #### P 8 #### [facility] [address] [place], [place] [address] MCV (RBC) [Entitic vol] 91.4 fL Normal 83.2-95.6 [facility] [place] Comment on above: Performed By: #### P 8 #### [facility] [address] [place] [address] Platelet mean volume (Bld) [Entitic vol] 9.6 fL Normal 8.7-12.0 [facility] Comment on above: Performed By: #### P 8 #### [facility] [address] [place] [id number] Platelets (Bld) [#/Vol] 505 thou/cmm High 141-365 [facility] Comment on above: Performed By: #### P 8 #### [facility] [address] [place] [address] RBC (Bld) [#/Vol] 3.01 mil/cmm Low 4.63-6.08 [facility] Comment on above: Performed By: #### P 8 #### [facility] [address] [place] [address] RDW SD 51.8 fl High 36.1-45.8 [facility] Comment on above: Performed By: #### P 8 #### [facility] [address] [place] [id number] WBC (Bld) [#/Vol] 12.29 thou/cmm High 4.23-9.07 [facility] Comment on above: Performed By: #### P 8 #### [facility] [address] [place] [id number] MDRD GFRon 09-09-2019 GFR/1.73 sq M predicted among non-blacks MDRD (S/P/Bld) [Vol rate/Area] mL/min/{1.73_m2} Normal >60mL/min/1 .73m2 [facility] Comment on above: Result Comment: If t he patient is , multiply the result by 1.210. Performed By: #### C BC1 #### [facility] [address] [place] [address] Magnesium Bloodon 09-09-2019 Magnesium [Mass/Vol] 1.3 mg/dL Low 1.6-2.6 [facility] Comment on above: Performed By: #### C _CAROLINE #### [place] [id number] PLAN OF CAREon 09-09-2019 PLAN OF CARE HNO ID: [id number] Author: Francine Pineda (Pharmacist) Service: Pharmacy Author Type: Pharmacist Type: Plan of Care Filed: 09/09/2019 11:32 AM Note Text: MEDICATION HISTORY AND MEDICATION RECONCILIATION Patient Name:Nelson Modi : 1940 Source of history:Pharmacy records: [facility] [place] [address] - [address] [place] [phone] [id number] Medication Nonadherence Identified: No barriers noted- up to date on refills The above information represents the best possible medication history: Yes Reconciliation completed? 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 Stump electrical prospecting engineer supplied by [employer]. Denies f/C. Moving the stump without to [...] IANDO: Date 09/08/19 07 - 09/09/19 0659 09/09/19699 - 09/10/19 0659 Shift 1523-4451 2597-5092 6763-9829 24 Hour Total 1165-0375 0710-9546 9275-1445 24 Hour Total INTAKE Shift Total OUTPUT [...] with luly in place, BKA with stump electrical prospecting engineer in place SKIN: Skin color, texture, turgor [...] lower extremity angiogram with partial occlusion R VENTILATION EQUIPMENT TENDER, reconstitution at R below knee pop, 2-vessel runoff. Antibiotics stopped 08/23, remains non-septic. 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 09/02 PVR R calf 0.51, R low thigh 0.74. 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 ? Plan: -?DIET HEART HEALTHY? 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 Dressing changed re-applied stump electrical prospecting engineer today. Knee immobilize q4hr - Pain control - PT/OT?recs:?acute rehab - [facility] ppx - Mobilization as able, out of bed to chair?as tolerated - PAD - continue statin?and aspirin - Dispo planning: awaiting precert to [facility] Discuss plan with Dr. Devin Prescott DO, MBA PGY-1 General Surgery Resident 09/09/2019 9:02 AM Pager below: Vascular AND Thoracic Surgery Service Pager: For questions or concerns Mon-Mon 6a-5p please page [phone]. After 5pm and on Weekends and Holidays, please page [phone] if in ICU or [phone] if on RNF. Normal [facility] Phosphorus Bloodon 0 Phosphate [Mass/Vol] 3.1 mg/dL Normal 2.5-4.9 [facility] Comment on above: Performed By: #### C BC1 #### [place] [id number] THERAPY NTon 09-09-2019 THERAPY NT HNO ID: [id number] Author: Ramón Obrien) Poppy Service: Physical Therapy Author Type: [employer] Type: Therapy (PT/OT/Speech/Resp) Filed: 09/09/2019 11:36 AM Note Text: Attestation signed by Tori (Pt) Santos at 09/09/2019 4:16 PM I reviewed and agree with the documentation corresponding to this therapy visit. SIGNATURE: Tori Graham, PT DATE: September 09, 2019 TIME: 4:16 PM Physical Therapy Treatment SERVICE DATE: 09/09/2019 SERVICE TIME: 1053 to 1119 ROOM: [id number] Recommended Discharge Disposition: Acute Rehab Recommended Discharge [...] l;Muscle Weakness (generalized) Interventions Provided: Therapeutic Exercise (68225);Therapeutic Activity (56794) Therapeutic Exercise (47735) Treatment Minutes: 14 1 unit Skilled Intervention(s): [...] change of knee flexion contracture. Therapeutic Activity (88430) Treatment Minutes: 12 1 unit Skilled Intervention(s): [...] Lives With: Self/Alone Assistance Available: real time trader Entry To Home: Stairs;With Rail Number Of [...] 2019 TIME: 11:28 AM Normal [facility] Basic Panelon 09-08-2019 Creatinine [Mass/Vol] 0.71 mg/dL Normal 0.67-1.17 [facility] Comment on above: Result Comment: Use of this assay is not recommended for patients undergoing treatment with phenindione, due to the potential for falsely depressed results. Performed By: #### P 8 #### [place] [address] Anion gap [Moles/Vol] 11 mmol/L Normal 8-16 [facility] Comment on above: Performed By: #### P 8 #### [facility] [address] [place], [place] [address] Calcium [Mass/Vol] 8.7 mg/dL Normal 8.5-10.1 [facility] Comment on above: Performed By: #### P 8 #### [facility] [address] [place], [place] [address] CO2 [Moles/Vol] 24 mmol/L Normal 21-32 [facility] Comment on above: Performed By: #### P 8 #### [facility] [address] [place], [place] [address] Glucose [Mass/Vol] 132 mg/dL High 70-99 [facility] Comment on above: Performed By: #### P 8 #### [facility] [address] [place], [place] [address] Urea nitrogen [Mass/Vol] 17 mg/dL Normal 7-18 [facility] Comment on above: Performed By: #### P 8 #### [facility] [address] [place], [place] [address] Chloride [Moles/Vol] 102 mmol/L Normal 98-107 [facility] Comment on above: Performed By: #### P 8 #### [facility] [address] [place], [place] [address] Potassium [Moles/Vol] 3.9 mmol/L Normal 3.5-5.1 [facility] Comment on above: Performed By: #### P 8 #### [facility] [address] [place], [place] [address] Sodium [Moles/Vol] 133 mmol/L Low 136-145 [facility] Comment on above: Performed By: #### P 8 #### [facility] [address] [place], [place] [address] CONSULT PROGon 09-08-2019 CONSULT PROG HNO ID: [id number] Author: Hermila Gallegos Service: Endocrinology Author Type: Physician Type: Consult Progress Note Filed: 09/08/2019 1:57 PM Note Text: ENDOCRINOLOGY CONSULT PROGRESS NOTE SERVICE DATE: 09/08/2019 SERVICE TIME: 10:20 AM Subjective INTERVAL HPI: Pt followed for diabetes mellitus type 2 with complications. Tr from [place]; adm for right foot infection and gangrene; [...] 1:57 PM PAGER: [phone] Normal [facility] Hemogramon 09-08-2019 Erythrocyte distribution width (RBC) [Ratio] 15.8 % High 11.6-14.4 [facility] Comment on above: Performed By: #### P 8 #### [facility] [address] [place], [place] [address] Hematocrit (Bld) [Volume fraction] 27.0 % Low 40.1-51.0 [facility] Comment on above: Performed By: #### P 8 #### [facility] [address] [place], [place] [address] Hemoglobin (Bld) [Mass/Vol] 8.2 g/dL Low 13.7-17.5 [facility] Comment on above: Performed By: #### P 8 #### [facility] [address] [place], [place] [address] MCH (RBC) [Entitic mass] 27.8 pg Normal 25.7-32.2 [facility] Comment on above: Performed By: #### P 8 #### [facility] [address] [place], [place] [address] MCHC (RBC) [Mass/Vol] 30.4 % Low 32.3-36.5 [facility] Comment on above: Performed By: #### P 8 #### [facility] [address] [place], [place] [address] MCV (RBC) [Entitic vol] 91.5 fL Normal 83.2-95.6 [facility] Comment on above: Performed By: #### P 8 #### [facility] [address] [place], [place] [address] Platelet mean volume (Bld) [Entitic vol] 10.2 fL Normal 8.7-12.0 [facility] Comment on above: Performed By: #### P 8 #### [facility] [address] [place], [place] [address] Platelets (Bld) [#/Vol] 444 thou/cmm High 141-365 [facility] Comment on above: Performed By: #### P 8 #### [facility] [address] [place], [place] [address] RBC (Bld) [#/Vol] 2.95 mil/cmm Low 4.63-6.08 [facility] Comment on above: Performed By: #### P 8 #### [facility] [address] [place], [place] [address] RDW SD 51.5 fl High 36.1-45.8 [facility] Comment on above: Performed By: #### P 8 #### [facility] [address] [place], [place] [address] WBC (Bld) [#/Vol] 12.29 thou/cmm High 4.23-9.07 [facility] Comment on above: Performed By: #### P 8 #### [facility] [address] [place] [id number] Magnesium Bloodon 09-08-2019 Magnesium [Mass/Vol] 1.2 mg/dL Low 1.6-2.6 [facility] Comment on above: Performed By: #### C BC1 #### [facility] [address] [place] [id number] PROGRESSon 09-08-2019 PROGRESS HNO ID: [id number] Author: Jennifer Crooks Service: Vascular Surgery Author [...] pain moderately well controlled this am. Stump electrical prospecting engineer applied by [employer] yesterday. Knee immobilizer in place. Tolerating diet DIET HEART HEALTHY OBJECTIVE: Vitals: Temp (24hrs), Av.8 ?C (98.3 ?F), Min:36.5 ?C (97.7 ?F), Max:37.3 ?C (99.1 ?F) BP 119/85 Pulse 98 Temp 37.1 ?C (98.8 ?F) (Oral) Resp 16 Ht 177.8 cm (5' 10") Wt 90.4 kg (199 lb 4.7 oz) SpO2 96% BMI 28.60 kg/m? O2 Therapy: Room Air IANDO: Date 09/07/19 0700 - 09/08/19 0659 09/08/19 07 - 09/09/19 0659 Shift 5169-9555 1839-3572 2686-7029 24 Hour Total 1077-8339 0689-9771 8645-3601 24 Hour Total INTAKE Shift Total OUTPUT Urine 990 634 0891 Void (ml) 835 933 6145 # of BMs Stool Incontinence 1 x 1 x Number of BMs 1 x 1 x Shift Total 359 661 1359 Weight (kg) 90 90 90.4 90.4 90.4 [...] lower extremity angiogram with partial occlusion R VENTILATION EQUIPMENT TENDER, reconstitution at R below knee pop, 2-vessel [...] edema, no bleeding. Will change dressing/re-apply stump electrical prospecting engineer today. - Pain control - PT/OT?recs:?acute rehab - [facility] ppx - Mobilization as able, out of bed to chair?as tolerated - PAD - continue statin?and aspirin - Dispo planning: awaiting precert to [facility] Re[facility] Addendum: (10:34 AM) Patient seen bedside with attending. Knee immobilizer/and dressing/stump electrical prospecting engineer taken down. Surgical incision appears healthy with minimal drainage. No erythema or bleeding. Luly intact. Dressing/stump electrical prospecting engineer reapplied. Will continue knee immobilizer q4H and while OOB. ? Vascular AND Thoracic Surgery Service Pager: For questions or concerns Mon-Mon 6a-5p please page [phone]. After 5pm and on Weekends and Holidays, please page [phone] if in ICU or [phone] if on RNF. SIGNATURE: Jennifer Crooks MD PATIENT NAME: Elizabeth Modi DATE: September 08, 2019 TIME: 6:45 AM Pager: Normal [facility] Phosphorus Bloodon 0 Phosphate [Mass/Vol] 3.0 mg/dL Normal 2.5-4.9 [facility] Comment on above: Performed By: #### C BC1 #### [facility] [address] [place], [place] [address] Basic Panelon 09-07-2019 Creatinine [Mass/Vol] 0.84 mg/dL Normal 0.67-1.17 [facility] Comment on above: Result Comment: Use of this assay is not recommended for patients undergoing treatment with phenindione, due to the potential for falsely depressed results. Performed By: #### F ERR #### [facility] [address] [place] [address] Anion gap [Moles/Vol] 11 mmol/L Normal 8-16 [facility] Comment on above: Performed By: #### F ERR #### [address] [address] CO2 [Moles/Vol] 25 mmol/L Normal 21-32 [facility] Comment on above: Performed By: #### F ERR #### [address] [address] Glucose [Mass/Vol] 147 mg/dL High 70-99 [facility] Comment on above: Performed By: #### F ERR #### [address] [address] Urea nitrogen [Mass/Vol] 14 mg/dL Normal 7-18 [facility] Comment on above: Performed By: #### F ERR #### [facility] [address] [place], [place] [address] Calcium [Mass/Vol] 9.5 mg/dL Normal 8.5-10.1 [facility] Comment on above: Performed By: #### F ERR #### [address] [address] Chloride [Moles/Vol] 101 mmol/L Normal 98-107 [facility] Comment on above: Performed By: #### F ERR #### [facility] [address] [place], [place] [address] Potassium [Moles/Vol] 4.2 mmol/L Normal 3.5-5.1 [facility] Comment on above: Performed By: #### F ERR #### [facility] [address] [place], [place] [address] Sodium [Moles/Vol] 133 mmol/L Low 136-145 [facility] Comment on above: Performed By: #### F ERR #### [facility] [address] [place], [place] [address] CONSULT PROGon 09-07-2019 CONSULT PROG HNO ID: [id number] Author: Hermila Gallegos Service: Endocrinology Author Type: Physician Type: Consult Progress Note Filed: 09/07/2019 11:25 AM Note Text: ENDOCRINOLOGY CONSULT PROGRESS NOTE SERVICE DATE: 09/07/2019 SERVICE TIME: 11:22 AM Subjective INTERVAL HPI: Pt followed for diabetes mellitus type 2 with complications. 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 Had LE angiogram on 08/26. Had right femoral endarterectomy on 09/01. Was in ICU, tr to floor on 09/02. 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 Pt has pain in right leg stump. No SOB, no nausea; no new events DIET HEART HEALTHY OR yest Recent Labs 09/07/19 0707 09/07/19 0632 09/06/19 20209/06/19 1610 09/06/19 0545 09/05/19 0545 GLUC -- [...] 11:24 AM PAGER: [phone] Normal [facility] Hemogramon 09-07-2019 Erythrocyte distribution width (RBC) [Ratio] 16.1 % High 11.6-14.4 [facility] Comment on above: Performed By: #### M AG #### [facility] [address] [place] [address] Hematocrit (Bld) [Volume fraction] 31.4 % Low 40.1-51.0 [facility] Comment on above: Performed By: #### M AG #### [place] [address] Hemoglobin (Bld) [Mass/Vol] 9.8 g/dL Low 13.7-17.5 [facility] Comment on above: Performed By: #### M AG #### [place] [address] MCH (RBC) [Entitic mass] 28.7 pg Normal 25.7-32.2 [facility] Comment on above: Performed By: #### M AG #### [place] [address] MCHC (RBC) [Mass/Vol] 31.2 % Low 32.3-36.5 [facility] Comment on above: Performed By: #### M AG #### [place] [address] MCV (RBC) [Entitic vol] 92.1 fL Normal 83.2-95.6 [facility] Comment on above: Performed By: #### M AG #### [place] [address] Platelet mean volume (Bld) [Entitic vol] 9.6 fL Normal 8.7-12.0 [facility] Comment on above: Performed By: #### M AG #### [place] [address] Platelets (Bld) [#/Vol] 519 thou/cmm High 141-365 [facility] Comment on above: Performed By: #### M AG #### [facility] [address] [place] [address] RBC (Bld) [#/Vol] 3.41 mil/cmm Low 4.63-6.08 [facility] Comment on above: Performed By: #### M AG #### [facility] [address] [place] [address] RDW SD 53.3 fl High 36.1-45.8 [facility] Comment on above: Performed By: #### M AG #### [facility] [address] [place], [place] [address] WBC (Bld) [#/Vol] 12.27 thou/cmm High 4.23-9.07 [facility] Comment on above: Performed By: #### M AG #### [facility] [address] [place] [address] Magnesium Bloodon 09-07-2019 Magnesium [Mass/Vol] 1.3 mg/dL Low 1.6-2.6 [facility] Comment on above: Performed By: #### F ERR #### [place] [address] OPERATIVE NOon 09-07-2019 OPERATIVE NO HNO ID: [id number] Author: Ryan Allen Service: ? Author Type: Physician Type: Operative Report Filed: 09/09/2019 8:10 AM Note Text: [facility] - Operative Report ELIZABETH MODI : 1940 AGE: 79. SEX: M PATIENT TYPE: I HOSP SV: KEENAN LOCATION: [facility] ATTENDING PHYSICIAN: JOVANNY PARMAR CSN NUMBER: [id number] DATE OF SURGERY/PROCEDURE: 09/05/2019 INCISION/PROCEDURE START TIME: 12:28 PM INCISION CLOSE/PROCEDURE END TIME: 2:14 PM PREOPERATIVE DIAGNOSIS: Gangrenous right lower extremity, status post guillotine amputation below the knee. POSTOPERATIVE DIAGNOSIS: Gangrenous right lower extremity, status post guillotine amputation below the knee. SURGEON: Ryan Allen MD, FACS STAIN APPLICATOR: Tom Prescott DO, resident, also cardiovascular surgical tech is Irvin Randig. SURGERY/PROCEDURE: Revision of a right below-knee amputation. [...] tuberosity location and also used the oscillating [place] saw to divide the fibula slightly proximal [...] satisfactory postop condition. Ryan Allen MD, FACS RGN:[id number] Normal [facility] PROGRESSon 09-07-2019 PROGRESS HNO ID: [id number] Author: Jennifer Crooks Service: Vascular Surgery Author [...] O2 Therapy: Room Air IANDO: Date 09/06/19 07 - 09/07/19 0659 09/07/19 07 - 09/08/19 0659 Shift 5907-3828 9972-8080 5556-4560 24 Hour Total 3573-8431 2733-0455 8421-3285 24 Hour Total INTAKE Shift Total OUTPUT Urine 550 998 333 1329 Void (ml) 550 570 497 8929 Shift Total 550 392 802 6467 Weight (kg) 89.3 89.3 90 90 90 [...] lower extremity angiogram with partial occlusion R VENTILATION EQUIPMENT TENDER, reconstitution at R below knee pop, 2-vessel [...] edema, no bleeding Nori consult for stump electrical prospecting engineer 09/06 - Pain control - PT/OT recs: acute rehab - [facility] ppx - Mobilization as able, out of bed to chair?as tolerated - PAD - continue statin?and aspirin - Dispo planning: awaiting precert to [facility] Vascular AND Thoracic Surgery Service Pager: For questions or concerns Mon-Mon 6a-5p please page [phone]. After 5pm and on Weekends and Holidays, please page [phone] if in ICU or [phone] if on RNF. SIGNATURE: Jennifer Crooks MD PATIENT NAME: Elizabeth Modi DATE: September 07, 2019 TIME: 6:39 AM Pager: Mela [facility] Phosphorus Bloodon 0 Phosphate [Mass/Vol] 3.0 mg/dL Normal 2.5-4.9 [facility] Comment on above: Performed By: #### C BC1 #### [facility] [address] [place], [place] [address] Basic Panelon 09-06-2019 Creatinine [Mass/Vol] 0.70 mg/dL Normal 0.67-1.17 [facility] Comment on above: Result Comment: Use of this assay is not recommended for patients undergoing treatment with phenindione, due to the potential for falsely depressed results. Performed By: #### C _ANA #### [facility] [address] [place], [place] [address] Anion gap [Moles/Vol] 10 mmol/L Normal 8-16 [facility] Comment on above: Performed By: #### C _ANA #### [address] [address] CO2 [Moles/Vol] 24 mmol/L Normal 21-32 [facility] Comment on above: Performed By: #### C _ANA #### [facility] [address] [place], [place] [address] Urea nitrogen [Mass/Vol] 14 mg/dL Normal 7-18 [facility] Comment on above: Performed By: #### C _ANA #### [facility] [address] [place], [place] [address] Calcium [Mass/Vol] 8.1 mg/dL Low 8.5-10.1 [facility] Comment on above: Performed By: #### C _ANA #### [facility] [address] [place], [place] [address] Glucose [Mass/Vol] 157 mg/dL High 70-99 [facility] Comment on above: Performed By: #### C _ANA #### [facility] [address] [place], [place] [address] Chloride [Moles/Vol] 106 mmol/L Normal 98-107 [facility] Comment on above: Performed By: #### C _ANA #### [address] [address] Potassium [Moles/Vol] 4.4 mmol/L Normal 3.5-5.1 [facility] Comment on above: Performed By: #### C _ANA #### [facility] [address] [place], [place] [address] Sodium [Moles/Vol] 136 mmol/L Normal 136-145 [facility] Comment on above: Performed By: #### C _ANA #### [facility] [address] [place], [place] [address] CASE MGT INIT ASSESon 2019 CASE MGT INIT ASS HNO ID: [id number] Author: Tami SantiagoRn) YURI Patricio Service: Care Management Author Type: Registered Nurse Type: Care Mgt Initial Assessment Filed: 09/06/2019 2:24 PM Note Text: CARE MANAGEMENT PROGRESS NOTE SERVICE DATE: 09/06/2019 SERVICE TIME: 2:23 PM LOS: 16 days Chart reviewed. Plan for [facility] - precert pending. Pt will need cot for transport. Will follow. SIGNATURE: Tami Patricio RN PATIENT NAME: Elizabeth Modi DATE: September 06, 2019 TIME: 2:22 PM PAGER/CONTACT #: [phone] [facility] CONSULT PROGon 09-06-2019 CONSULT PROG HNO ID: [id number] Author: Luke Briones (Gurwinder) Sailaja Service: Wound/Ostomy Author Type: Nurse Practitioner Type: Consult Progress Note Filed: 09/06/2019 9:52 AM Note Text: WOUND CARE PROGRESS FACING CUTTING MACHINE OPERATOR NOTE SERVICE DATE: 09/06/2019 SERVICE TIME: 09:02 [...] who is seen today with Zee Alba, Wound/general manager oracle data cloud, and presented to hospital with complaints of [...] left heel and seat cushion. Will reorder [id number] mattress as patient is still on regular mattress and turn and reposition every 2 hours or more often. A photo was taken of the patient's wound(s). Photos can be found under the Get Images tab on Outline. Photos are uploaded by the wound ocular care technologist and may not be immediately available for viewing. Contact the wound and ostomy care department with questions. SIGNATURE: Luke Menard APRN.DIESEL ENGINE ASSEMBLER,CWOCN PATIENT NAME: Elizabeth Modi DATE: September 06, 2019 TIME: 9:45 AM CONTACT#: [id number] [facility] CONSULT PROG HNO ID: [id number] Author: Doris Eden Service: Endocrinology Author Type: Physician Type: Consult Progress Note Filed: 09/06/2019 7:59 AM Note Text: ENDOCRINOLOGY CONSULT PROGRESS NOTE SERVICE DATE: 09/06/2019 SERVICE TIME: 7:45 AM Subjective INTERVAL HPI: Pt followed for diabetes mellitus type 2 with complications. Tr from [place]; adm for right foot infection and gangrene; [...] 7:59 AM PAGER: [phone] Normal [facility] Hemogramon 09-06-2019 Erythrocyte distribution width (RBC) [Ratio] 16.2 % High 11.6-14.4 [facility] Comment on above: Performed By: #### F ERR #### [facility] [address] [place] [address] Hematocrit (Bld) [Volume fraction] 26.4 % Low 40.1-51.0 [facility] Comment on above: Performed By: #### F ERR #### [place] [address] Hemoglobin (Bld) [Mass/Vol] 8.2 g/dL Low 13.7-17.5 [facility] Comment on above: Performed By: #### F ERR #### [facility] [address] [place] [address] MCH (RBC) [Entitic mass] 28.5 pg Normal 25.7-32.2 [facility] Comment on above: Performed By: #### F ERR #### [facility] [address] [place] [address] MCHC (RBC) [Mass/Vol] 31.1 % Low 32.3-36.5 [facility] Comment on above: Performed By: #### F ERR #### [facility] [address] [place] [address] MCV (RBC) [Entitic vol] 91.7 fL Normal 83.2-95.6 [facility] Comment on above: Performed By: #### F ERR #### [facility] [address] [place] [address] Platelet mean volume (Bld) [Entitic vol] 9.7 fL Normal 8.7-12.0 [facility] Comment on above: Performed By: #### F ERR #### [facility] [address] [place] [address] Platelets (Bld) [#/Vol] 410 thou/cmm High 141-365 [facility] Comment on above: Performed By: #### F ERR #### [facility] [address] [place] [address] RBC (Bld) [#/Vol] 2.88 mil/cmm Low 4.63-6.08 [facility] Comment on above: Performed By: #### F ERR #### [facility] [address] [place] [address] RDW SD 53.9 fl High 36.1-45.8 [facility] Comment on above: Performed By: #### F ERR #### [facility] [address] [place] [address] WBC (Bld) [#/Vol] 10.15 thou/cmm High 4.23-9.07 [facility] Comment on above: Performed By: #### F ERR #### [facility] [address] [place] [address] Magnesium Bloodon 09-06-2019 Magnesium [Mass/Vol] 1.5 mg/dL Low 1.6-2.6 [facility] Comment on above: Performed By: #### C _ANA #### [facility] [address] [place] [address] NUTRITIONon 09-06-2019 NUTRITION HNO ID: [id number] Author: Tanja Zimmerman) ALEIDA Byrne Service: Nutrition [...] condition;Depletion of fat/muscle stores Estimated kilocalorie needs: 4807-5725 Calorie Calculation Method: 30-35 kcals/kg Estimated protein [...] September 06, 2019 TIME: 9:53 AM PAGER: [phone] Normal [facility] PROGRESSon 09-06-2019 PROGRESS HNO ID: [id number] Author: Tom Prescott DO Service: General Surgery [...] Hopefully takedown dressing tomorrow and evaluate stump. [employer] to visit for stump electrical prospecting engineer hopefully tomorrow as well Signature: Ryan Allen MD Date: 09/06/2019 Time: 2:39 PM Vascular Surgery Progress Note SERVICE DATE: 09/06/2019 Vascular AND Thoracic Surgery Service Pager: For questions or concerns Mon-Fri 6a-5p please page [phone]. After 5pm and on Weekends and Holidays, please page [phone] if in ICU or [phone] if on RNF. Subjective SUBJECTIVE: Patient seen [...] kg/m? O2 Therapy: Room Air IANDO: Date 09/05/19699 - 09/06/1965809/06/19699 - 09/07/19 0659 Shift 6684-2367 9059-5185 3728-8201 24 Hour Total 2648-3673 2269-2053 0343-7247 24 Hour Total INTAKE PO 240 240 480 PO 240 240 480 IV 750 100 850 OR Crystalloid intake (mL) 750 750 Volume (mL) (lactated ringers infusion) 100 100 Shift Total 750 906 846 7408 OUTPUT Urine 150 1100 1300 2550 Void [...] lower extremity angiogram with partial occlusion R VENTILATION EQUIPMENT TENDER, reconstitution at R below knee pop, 2-vessel runoff. Antibiotics stopped 08/23, remains non-septic. 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 09/02 PVR R calf 0.51, R low thigh 0.74. 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 Dressing to be taken down tomorrow 09/06 Nori consult for stump electrical prospecting engineer 09/06 - Pain control - PT/OT recs: [...] 2174 if on RNF. Normal [facility] Phosphorus Bloodon 0 Phosphate [Mass/Vol] 2.9 mg/dL Normal 2.5-4.9 [facility] Comment on above: Performed By: #### M AG #### [facility] [address] [place] [address] THERAPY NTon 09-06-2019 THERAPY NT HNO ID: [id number] Author: Briana SantiagoOtr/Vickie Watson Service: Occupational Therapy Author Type: Occupational Therapist Type: Therapy (PT/OT/Speech/Resp) Filed: 09/06/2019 3:43 PM Note Text: Occupational Therapy Treatment SERVICE DATE: 09/06/2019 SERVICE TIME: 1519 to 1533 ROOM: [place] [address] Recommended Discharge Disposition: Acute Rehab Recommended Discharge [...] feet;General symptoms and signs-other Interventions Provided: Self Longterm Management (58547) Self Longterm Management (30697) Treatment Minutes: 14 1 unit Skilled Intervention(s): [...] On 09/05/19 Reason for Occupational Therapy Consult: CAPACITY MANAGEMENT SPECIALIST Relevant Past Medical History: thyroid, HTN, DM, claudication Patient Report: Pt seen bedside, agreeable to OT, no complaints this p.m. 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: real time trader Entry To Home: Stairs;With Rail Number Of [...] 2019 TIME: 3:38 PM Normal [facility] THERAPY NT HNO ID: [id number] Author: Marilyn (Pt) Mark Service: Physical Therapy Author Type: Physical Therapist Type: Therapy (PT/OT/Speech/Resp) Filed: 09/06/2019 12:03 PM Note Text: Physical Therapy Treatment SERVICE DATE: 09/06/2019 SERVICE TIME: 1109 to 1119 ROOM: [id number] Recommended Discharge Disposition: Acute Rehab Recommended [...] l;Muscle Weakness (generalized) Interventions Provided: Therapeutic Activity (85496) Therapeutic Activity (21474) Treatment Minutes: 10 1 unit Skilled Intervention(s): [...] Lives With: Self/Alone Assistance Available: real time trader Entry To Home: Stairs;With Rail Number Of [...] Assist Level Additional Information Rolling Minimal Assistance -M: 2: Bed activities / dependent transfer Please see discipline specific clinical documentation flowsheet for complete details for this therapy evaluation/treatment. SIGNATURE: Marilyn Flores PT PATIENT NAME: Elizabeth Modi DATE: September 06, 2019 TIME: 11:55 AM Normal [facility] ABO/Rh Confirmationon 2019 ABO group Nom (Bld) A Normal [facility] Comment on above: Performed By: #### G LMET #### [place] [address] RH Type Positive Normal [facility] Comment on above: Performed By: #### G LMET #### [place] [address] ANES [place] 09-05-2019 ANES POST HNO ID: [id number] Author: Sj Huizar Service: Anesthesiology Author Type: [...] 2019 TIME: 5:54 PM PAGER/CONTACT #: [phone] [facility] ANES PREOPon 09-05-2019 ANES PREOP HNO ID: [id number] Author: Al Pugh Service: Anesthesiology Author Type: [...] DAILY Francine (Res) Phyllis 40 mg at 09/04/192131 - [MAR Hold due to Transfer] lisinopril [...] September 05, 2019 TIME: 11:39 AM CSN: [id number] Normal [facility] BRIEF OP NOTon 09-05-2019 BRIEF OP NOT HNO ID: [id number] Author: Tom Prescott DO Service: General Surgery [...] BRIEF OPERATIVE / PROCEDURE NOTE LOG ID: [id number] SURGERY/PROCEDURE DATE: 09/05/2019 INCISION/PROCEDURE START TIME: 12:28 PM INCISION CLOSE/PROCEDURE END TIME: 2:14 PM SURGEON(S)/PROCEDURALI ST(S) AND STAIN APPLICATOR(S): Surgeon(s) and Role: * Ryan Allen - Primary * Tom Prescott DO - Resident - Assisting Extension Supervisor: Irvin Walker SA SURGERY/PROCEDURE(S): Revision of [...] 2174 if on RNF. Normal [facility] Basic Panelon 09-05-2019 Creatinine [Mass/Vol] 0.73 mg/dL Normal 0.67-1.17 [facility] Comment on above: Result Comment: Use of this assay is not recommended for patients undergoing treatment with phenindione, due to the potential for falsely depressed results. Performed By: #### F ERR #### [facility] [address] [place], [place] [address] Anion gap [Moles/Vol] 9 mmol/L Normal 8-16 [facility] Comment on above: Performed By: #### F ERR #### [address] [address] Calcium [Mass/Vol] 7.8 mg/dL Low 8.5-10.1 [facility] Comment on above: Performed By: #### F ERR #### [facility] [address] [place], [place] [address] CO2 [Moles/Vol] 26 mmol/L Normal 21-32 [facility] Comment on above: Performed By: #### F ERR #### [facility] [address] [place], [place] [address] Glucose [Mass/Vol] 137 mg/dL High 70-99 [facility] Comment on above: Performed By: #### F ERR #### [facility] [address] [place], [place] [address] Urea nitrogen [Mass/Vol] 17 mg/dL Normal 7-18 [facility] Comment on above: Performed By: #### F ERR #### [facility] [address] [place], [place] [address] Chloride [Moles/Vol] 105 mmol/L Normal 98-107 [facility] Comment on above: Performed By: #### F ERR #### [facility] [address] [place], [place] [address] Potassium [Moles/Vol] 4.1 mmol/L Normal 3.5-5.1 [facility] Comment on above: Performed By: #### F ERR #### [facility] [address] [place], [place] [address] Sodium [Moles/Vol] 136 mmol/L Normal 136-145 [facility] Comment on above: Performed By: #### F ERR #### [facility] [address] [place], [place] [address] CONSULT PROGon 09-05-2019 CONSULT PROG HNO ID: [id number] Author: Doris Eden Service: Endocrinology Author Type: Physician Type: Consult Progress Note Filed: 09/05/2019 8:01 AM Note Text: ENDOCRINOLOGY CONSULT PROGRESS NOTE SERVICE DATE: 09/05/2019 SERVICE TIME: 7:50 AM Subjective INTERVAL HPI: Pt followed for diabetes mellitus type 2 with complications. Tr from [place]; adm for right foot infection and gangrene; [...] 8:01 AM PAGER: [phone] Normal [facility] Hemogramon 09-05-2019 Erythrocyte distribution width (RBC) [Ratio] 16.0 % High 11.6-14.4 [facility] Comment on above: Performed By: #### G LMET #### [place] [address] Hematocrit (Bld) [Volume fraction] 25.4 % Low 40.1-51.0 [facility] Comment on above: Performed By: #### G LMET #### [facility] [address] [place], [place] [address] Hemoglobin (Bld) [Mass/Vol] 8.1 g/dL Low 13.7-17.5 [facility] Comment on above: Performed By: #### G LMET #### [facility] [address] [place] [address] MCH (RBC) [Entitic mass] 29.1 pg Normal 25.7-32.2 [facility] Comment on above: Performed By: #### G LMET #### [facility] [address] [place] [address] MCHC (RBC) [Mass/Vol] 31.9 % Low 32.3-36.5 [facility] Comment on above: Performed By: #### G LMET #### [facility] [address] [place] [address] MCV (RBC) [Entitic vol] 91.4 fL Normal 83.2-95.6 [facility] Comment on above: Performed By: #### G LMET #### [facility] [address] [place] [address] Platelet mean volume (Bld) [Entitic vol] 9.7 fL Normal 8.7-12.0 [facility] Comment on above: Performed By: #### G LMET #### [facility] [address] [place] [address] Platelets (Bld) [#/Vol] 387 thou/cmm High 141-365 [facility] Comment on above: Performed By: #### G LMET #### [facility] [address] [place] [address] RBC (Bld) [#/Vol] 2.78 mil/cmm Low 4.63-6.08 [facility] Comment on above: Performed By: #### G LMET #### [facility] [address] [place] [address] RDW SD 52.4 fl High 36.1-45.8 [facility] Comment on above: Performed By: #### G LMET #### [facility] [address] [place], [place] [address] WBC (Bld) [#/Vol] 9.06 thou/cmm Normal 4.23-9.07 [facility] Comment on above: Performed By: #### G LMET #### [facility] [address] [place], [place] [address] Magnesium Bloodon 09-05-2019 Magnesium [Mass/Vol] 1.3 mg/dL Low 1.6-2.6 [facility] Comment on above: Performed By: #### C _ANA #### [facility] [address] [place], [place] [address] PROGRESSon 09-05-2019 PROGRESS HNO ID: [id number] Author: Francine Roberts Service: Vascular Surgery Author [...] kg/m? O2 Therapy: Room Air IANDO: Date 09/04/19 07 - 09/05/19 0659 09/05/19 07 - 09/06/19 0659 Shift 1171-5510 2812-0122 8168-6570 24 Hour Total 8012-0047 4996-3112 2996-7183 24 Hour Total INTAKE Shift Total OUTPUT Urine 650 130 264 5410 Void (ml) 650 350 722 9836 Shift Total 650 971 756 4991 Weight (kg) 89.4 89.4 89.4 89.4 89.4 [...] lower extremity angiogram with partial occlusion R VENTILATION EQUIPMENT TENDER, reconstitution at R below knee pop, 2-vessel [...] 2174 if on RNF. Normal [facility] Phosphorus Bloodon 0 Phosphate [Mass/Vol] 2.9 mg/dL Normal 2.5-4.9 [facility] Comment on above: Performed By: #### M AG #### [place] [address] Surgical Tissue Examon 09-04 Surgical Tissue Exam Test performed at [place] [address] NAME: ELIZABETH MODI REQUESTING: JOVANNY PARMAR MD [...] mild calcific atherosclerosis. Thrombi are not present. Warehousing Technician sections are submitted as follows: 1 - soft tissue line of resection (black ink); 2-3 - appeals representative sections of red-pink ischemic process at distal aspect; 4 - appeals representative sections of vessels; 5 - appeals representative section of bone following a period of decalcification. KVB:cindi ARENAS M.D. (Electronic signature on file) Signed out: 09/09/2019 14:52 PRINTED: 09/09/2019 Page 1 of 1 Normal [facility] Comment on above: Performed By: #### M AG #### [place] [address] Type and Screenon 09-05-2019 ABO group Nom (Bld) A Normal [facility] Comment on above: Performed By: #### M AG #### [place] [address] Comment See Below Normal [facility] Comment on above: Result Comment: Scre en &/or Xmatch expires in 3 days at 12 midnight. Redraw patient at that time. Performed By: #### M AG #### [place] [address] RH Type Positive Normal [facility] Comment on above: Performed By: #### M AG #### [facility] [address] [place] [address] Basic Panelon 09-04-2019 Creatinine [Mass/Vol] 0.87 mg/dL Normal 0.67-1.17 [facility] Comment on above: Result Comment: Use of this assay is not recommended for patients undergoing treatment with phenindione, due to the potential for falsely depressed results. Performed By: #### F ERR #### [facility] [address] [place] [address] Anion gap [Moles/Vol] 8 mmol/L Normal 8-16 [facility] Comment on above: Performed By: #### F ERR #### [facility] [address] [place] [address] Calcium [Mass/Vol] 8.0 mg/dL Low 8.5-10.1 [facility] Comment on above: Performed By: #### F ERR #### [facility] [address] [place] [address] CO2 [Moles/Vol] 25 mmol/L Normal 21-32 [facility] Comment on above: Performed By: #### F ERR #### [facility] [address] [place] [address] Glucose [Mass/Vol] 113 mg/dL High 70-99 [facility] Comment on above: Performed By: #### F ERR #### [facility] [address] [place], [place] [address] Urea nitrogen [Mass/Vol] 23 mg/dL High 7-18 [facility] Comment on above: Performed By: #### F ERR #### [facility] [address] [place], [place] [address] Chloride [Moles/Vol] 110 mmol/L High 98-107 [facility] Comment on above: Performed By: #### F ERR #### [facility] [address] [place] [address] Potassium [Moles/Vol] 4.0 mmol/L Normal 3.5-5.1 [facility] Comment on above: Performed By: #### F ERR #### [facility] [address] [place], [place] [address] Sodium [Moles/Vol] 139 mmol/L Normal 136-145 [facility] Comment on above: Performed By: #### F ERR #### [facility] [address] [place], [place] [address] CASE MANAGEMon 09-04-2019 CASE MANAGEM HNO ID: [id number] Author: Tami (Rn) YURI Patricio Service: Care Management Author Type: Registered Nurse Type: Care Mgt Progress Note Filed: 09/04/2019 9:41 AM Note Text: CARE MANAGEMENT PROGRESS NOTE SERVICE DATE: 09/04/2019 SERVICE TIME: 9:36 AM LOS: 14 days Chart reviewed. 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 Plan for [facility] rehab at d/c. Pt will need auth when medically stable and likely cot transport. Will follow. SIGNATURE: Tami Patricio RN PATIENT NAME: Elizabeth Modi DATE: September 04, 2019 TIME: 9:36 AM PAGER/CONTACT #: [phone] [facility] CONSULT PROGon 09-04-2019 CONSULT PROG HNO ID: [id number] Author: Doris Eden Service: Endocrinology Author Type: Physician Type: Consult Progress Note Filed: 09/04/2019 9:41 AM Note Text: ENDOCRINOLOGY CONSULT PROGRESS NOTE SERVICE DATE: 09/04/2019 SERVICE TIME: 9:20 AM Subjective INTERVAL HPI: Pt followed for diabetes mellitus type 2 with complications. Tr from [place]; adm for right foot infection and gangrene; [...] 9:41 AM PAGER: [phone] Normal [facility] Hemogramon 09-04-2019 Erythrocyte distribution width (RBC) [Ratio] 15.8 % High 11.6-14.4 [facility] Comment on above: Performed By: #### F ERR #### [facility] [address] [place] [address] Hematocrit (Bld) [Volume fraction] 27.6 % Low 40.1-51.0 [facility] Comment on above: Performed By: #### F ERR #### [facility] [address] [place] [address] Hemoglobin (Bld) [Mass/Vol] 8.3 g/dL Low 13.7-17.5 [facility] Comment on above: Performed By: #### F ERR #### [facility] [address] [place] [address] MCH (RBC) [Entitic mass] 28.0 pg Normal 25.7-32.2 [facility] Comment on above: Performed By: #### F ERR #### [facility] [address] [place] [address] MCHC (RBC) [Mass/Vol] 30.1 % Low 32.3-36.5 [facility] Comment on above: Performed By: #### F ERR #### [facility] [address] [place] [address] MCV (RBC) [Entitic vol] 93.2 fL Normal 83.2-95.6 [facility] Comment on above: Performed By: #### F ERR #### [facility] [address] [place] [address] Platelet mean volume (Bld) [Entitic vol] 10.0 fL Normal 8.7-12.0 [facility] Comment on above: Performed By: #### F ERR #### [facility] [address] [place] [id number] Platelets (Bld) [#/Vol] 371 thou/cmm High 141-365 [facility] Comment on above: Performed By: #### F ERR #### [facility] [address] [place] [address] RBC (Bld) [#/Vol] 2.96 mil/cmm Low 4.63-6.08 [facility] Comment on above: Performed By: #### F ERR #### [facility] [address] [place] [address] RDW SD 51.6 fl High 36.1-45.8 [facility] Comment on above: Performed By: #### F ERR #### [facility] [address] [place] [address] WBC (Bld) [#/Vol] 9.95 thou/cmm High 4.23-9.07 [facility] Comment on above: Performed By: #### F ERR #### [facility] [address] [place] [address] Magnesium Bloodon 09-04-2019 Magnesium [Mass/Vol] 1.8 mg/dL Normal 1.6-2.6 [facility] Comment on above: Performed By: #### M AG #### [facility] [address] [place] [address] PROGRESSon 09-04-2019 PROGRESS HNO ID: [id number] Author: Francine Roberts Service: Vascular Surgery Author [...] questions or concerns Mon-Fri 6a-5p please page [phone]. After 5pm and on Weekends and Holidays, please page [phone] if in ICU or [phone] if on RNF. Subjective SUBJECTIVE: Complaining of [...] 0659 09/04/19 07 - 09/05/19 0659 Shift 8925-3020 3513-4751 6989-7523 24 Hour Total 3151-1295 4673-5387 0625-2917 24 Hour Total INTAKE IV 611 611 Volume (mL) (lactated ringers infusion) 511 511 Volume (mL) (magnesium sulfate in sterile water 4 g iv piggyback) 100 100 Shift Total 611 611 OUTPUT Urine 723 014 9252 Void (ml) 607 419 6895 Shift Total 186 683 0256 Weight (kg) 91.4 91.4 89.4 89.4 89.4 [...] lower extremity angiogram with partial occlusion R VENTILATION EQUIPMENT TENDER, reconstitution at R below knee pop, 2-vessel [...] statin?and aspirin - R BKA tomorrow SIGNATURE: Francnie Roberts MD PATIENT NAME: Elizabeth Modi DATE: September 04, 2019 TIME: 6:21 AM Vascular AND Thoracic Surgery Service Pager: For questions or concerns Mon-Fri 6a-5p please page [phone]. After 5pm and on Weekends and Holidays, please page [phone] if in ICU or [phone] if on RNF. Normal [facility] Phosphorus Bloodon 0 Phosphate [Mass/Vol] 2.2 mg/dL Low 2.5-4.9 [facility] Comment on above: Performed By: #### C _ANA #### [facility] [address] [place] [address] THERAPY NTon 09-04-2019 THERAPY NT HNO ID: [id number] Author: Marilyn (Pt) Mark Service: Physical Therapy Author Type: Physical Therapist Type: Therapy (PT/OT/Speech/Resp) Filed: 09/04/2019 3:34 PM Note Text: PHYSICAL THERAPY MISSED VISIT SERVICE DATE: 09/04/2019 SERVICE TIME: 1532 to 1532 ROOM: [place] [address] Attempted Treatment. Patient not seen due to Declined. Patient reports he is extremely tired today and is having his procedure tomorrow. States he is not feeling up to it today despite encouragement. Educated patient that we will visit him after his procedure. SIGNATURE: Marilyn Flores PT PATIENT NAME: Elizabeth Modi DATE: September 04, 2019 TIME: 3:33 PM Normal [facility] ANES [place] 09-03-2019 ANES POST HNO ID: [id number] Author: Dwayne Kerns Service: Anesthesiology Author Type: Physician Type: Anesthesia PostOp Filed: 09/02/2019 11:44 PM Note Text: POST ANESTHESIA EVALUATION NOTE SERVICE DATE: 09/02/2019 SERVICE TIME: 11:44 PM : 1940 Vitals: 09/02/19 0502 09/02/19 0906 09/02/19 1500 09/02/19 1900 Temp: 36.8 ?C (98.2 ?F) 36.1 ?C (97 ?F) 36 ?C (96.8 ?F) 36.3 ?C (97.3 ?F) 09/02/19 2000 09/02/19 2100 09/02/19219909/02/19 2300 BP: 98/51 94/51 (!) 99/47 (!) [...] 02, 2019 TIME: 11:44 PM PAGER/CONTACT #: [phone] Normal [facility] Basic Panelon 09-03-2019 Creatinine [Mass/Vol] 0.90 mg/dL Normal 0.67-1.17 [facility] Comment on above: Result Comment: Use of this assay is not recommended for patients undergoing treatment with phenindione, due to the potential for falsely depressed results. Performed By: #### C BC1 #### [address] [address] Anion gap [Moles/Vol] 7 mmol/L Low 8-16 [facility] Comment on above: Performed By: #### C BC1 #### [facility] [address] [place], [place] [address] Calcium [Mass/Vol] 7.9 mg/dL Low 8.5-10.1 [facility] Comment on above: Performed By: #### C BC1 #### [facility] [address] [place], [place] [address] CO2 [Moles/Vol] 27 mmol/L Normal 21-32 [facility] Comment on above: Performed By: #### C BC1 #### [facility] [address] [place], [place] [address] Glucose [Mass/Vol] 135 mg/dL High 70-99 [facility] Comment on above: Performed By: #### C BC1 #### [facility] [address] [place], [place] [address] Urea nitrogen [Mass/Vol] 25 mg/dL High 7-18 [facility] Comment on above: Performed By: #### C BC1 #### [facility] [address] [place] [address] Chloride [Moles/Vol] 106 mmol/L Normal 98-107 [facility] Comment on above: Performed By: #### C BC1 #### [facility] [address] [place] [address] Potassium [Moles/Vol] 4.4 mmol/L Normal 3.5-5.1 [facility] Comment on above: Performed By: #### C BC1 #### [facility] [address] [place] [address] Sodium [Moles/Vol] 136 mmol/L Normal 136-145 [facility] Comment on above: Performed By: #### C BC1 #### [facility] [address] [place] [address] CASE MANAGEMon 09-03-2019 CASE MANAGEM HNO ID: [id number] Author: Ammy (Rn) YURI Gutierres Service: ? Author Type: Registered Nurse [...] 03, 2019 TIME: 9:50 AM PAGER/CONTACT #: [phone] Normal [facility] CONSULT PROGon 09-03-2019 CONSULT PROG HNO ID: [id number] Author: Doris Eden Service: Endocrinology Author Type: Physician Type: Consult Progress Note Filed: 09/03/2019 8:39 AM Note Text: ENDOCRINOLOGY CONSULT PROGRESS NOTE SERVICE DATE: 09/03/2019 SERVICE TIME: 8:05 AM Subjective INTERVAL HPI: Pt followed for diabetes mellitus type 2 with complications. Tr from [place]; adm for right foot infection and gangrene; [...] 8:39 AM PAGER: [phone] Normal [facility] Hemogramon 09-03-2019 Erythrocyte distribution width (RBC) [Ratio] 15.4 % High 11.6-14.4 [facility] Comment on above: Performed By: #### M AG #### [address] [address] Hematocrit (Bld) [Volume fraction] 28.1 % Low 40.1-51.0 [facility] Comment on above: Performed By: #### M AG #### [address] [address] Hemoglobin (Bld) [Mass/Vol] 8.9 g/dL Low 13.7-17.5 [facility] Comment on above: Performed By: #### M AG #### [facility] [address] [place], [place] [address] MCH (RBC) [Entitic mass] 29.1 pg Normal 25.7-32.2 [facility] Comment on above: Performed By: #### M AG #### [address] [address] MCHC (RBC) [Mass/Vol] 31.7 % Low 32.3-36.5 [facility] Comment on above: Performed By: #### M AG #### [facility] [address] [place], [place] [address] MCV (RBC) [Entitic vol] 91.8 fL Normal 83.2-95.6 [facility] [place] Comment on above: Performed By: #### M AG #### [facility] [address] [place], [place] [address] Platelet mean volume (Bld) [Entitic vol] 9.4 fL Normal 8.7-12.0 [facility] Comment on above: Performed By: #### M AG #### [facility] [address] [place], [place] [address] Platelets (Bld) [#/Vol] 410 thou/cmm High 141-365 [facility] Comment on above: Performed By: #### M AG #### [place] [address] RBC (Bld) [#/Vol] 3.06 mil/cmm Low 4.63-6.08 [facility] Comment on above: Performed By: #### M AG #### [place] [address] RDW SD 48.7 fl High 36.1-45.8 [facility] Comment on above: Performed By: #### M AG #### [facility] [address] [place] [address] WBC (Bld) [#/Vol] 12.94 thou/cmm High 4.23-9.07 [facility] Comment on above: Performed By: #### M AG #### [place] [address] Magnesium Bloodon 09-03-2019 Magnesium [Mass/Vol] 1.4 mg/dL Low 1.6-2.6 [facility] Comment on above: Performed By: #### M AG #### [facility] [address] [place] [address] NURSING PROGon 09-03-2019 NURSING PROG HNO ID: [id number] Author: Kassidy SantiagoRn) YURI Lew Service: Nursing Author Type: Registered Nurse Type: Nursing Progress Note Filed: 09/03/2019 11:57 AM Note Text: Nursing Progress Note Patient Name: Elizabeth Modi Patient Location: [id number] [address] __ Daily Note: 1047--report called to Darrin Chau RN. 1113--pt transferred to 422 via chair on RA with Rn and Sr Tech. Pt remains in chair, chair locked, call light within reach, tele applied. YURI Chau in room. This note was completed by: Kassidy Lew RN [facility] PROGRESSon 09-03-2019 PROGRESS HNO ID: [id number] Author: Francine Roberts Service: Vascular Surgery Author [...] questions or concerns Mon-Fri 6a-5p please page [phone]. After 5pm and on Weekends and Holidays, please page [phone] if in ICU or [phone] if on RNF. Subjective SUBJECTIVE: SARATH. Says [...] O2 Therapy: Room Air IANDO: Date 09/02/19 0700 - 09/03/19 0659 09/03/19 0700 - 09/04/19 0659 Shift 1055-7511 8062-1770 8165-8199 24 Hour Total 4203-6109 6855-7461 6420-5402 24 Hour Total INTAKE Shift Total OUTPUT [...] lower extremity angiogram with partial occlusion R VENTILATION EQUIPMENT TENDER, reconstitution at R below knee pop, 2-vessel [...] then determination on AKA/BKA - transfer to [facility] today SIGNATURE: Francine Roberts MD PATIENT NAME: Elizabeth Modi DATE: September 03, 2019 TIME: 6:21 AM Vascular AND Thoracic Surgery Service Pager: For questions or concerns Mon-Mon 6a-5p please page [phone]. After 5pm and on Weekends and Holidays, please page [phone] if in ICU or [phone] if on RNF. Normal [facility] Phosphorus Bloodon 0 Phosphate [Mass/Vol] 2.9 mg/dL Normal 2.5-4.9 [facility] Comment on above: Performed By: #### P 8 #### [place] [address] THERAPY NTon 09-03-2019 THERAPY NT HNO ID: [id number] Author: Tamiko SantiagoOtr/Vickie Nur Service: Occupational Therapy Author Type: Occupational Therapist Type: Therapy (PT/OT/Speech/Resp) Filed: 09/03/2019 9:19 AM Note Text: Occupational Therapy Evaluation(Re-Evaluati on) SERVICE DATE: 09/03/2019 SERVICE TIME: 0845 to 0900 ROOM: [place] [address] Recommended Discharge Disposition: Acute Rehab Justification For [...] and signs-other Interventions Provided: Re-evaluation $ Reevaluation (47267) Billed Units: 1 unit Total Timed Code Treatment Minutes: 39 Total Treatment Time (minutes): 15 SUBJECTIVE: Current Hospital Course: Chart reviewed; R femoral endarterectomy 09/02/2019 Reason for Occupational Therapy Consult: CAPACITY MANAGEMENT SPECIALIST Relevant Past Medical History: thyroid, HTN, DM, claudication Patient Report: found supine, agreeable to session, moderate pain. "I am so glad I got to the chair." 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: real time trader Entry To Home: Stairs;With Rail Number Of [...] complete details for this therapy evaluation/treatment. SIGNATURE: Tamiko Nur OTR/L PATIENT NAME: Elizabeth Modi DATE: September 03, 2019 TIME: 9:15 AM Normal [facility] THERAPY NT HNO ID: [id number] Author: Marilyn (Pt) Mark Service: Physical Therapy Author Type: Physical Therapist Type: Therapy (PT/OT/Speech/Resp) Filed: 09/03/2019 9:12 AM Note Text: Physical Therapy Treatment SERVICE DATE: 09/03/2019 SERVICE TIME: 0830 to 0853 ROOM: [place] [address] Recommended Discharge Disposition: Acute Rehab Recommended Discharge [...] Weakness (generalized) Interventions Provided: Re-evaluation $ Reevaluation (91394) Billed Units: 1 unit Re-evaluation completed due to completion of R femoral endarterectomy Therapeutic Activity (26538) Treatment Minutes: 10 1 unit Skilled Intervention(s): [...] Lives With: Self/Alone Assistance Available: real time trader Entry To Home: Stairs;With Rail Number Of [...] 2019 TIME: 9:08 AM Normal [facility] US ARTERIAL PVR LOWERon 08-17 US ARTERIAL PVR LOWER * * *Final Report* * * DATE OF EXAM: Sep 03 2019 11:07AM A2U 1107 - US ARTERIAL PVR LOWER / PROCEDURE REASON: s/p surgery * * * * Physician Interpretation * * * * Non-Invasive Vascular Laboratory [facility] Lower Extremity Arterial Physiology Study Bilateral/Complete Date of service/time: 09/03/2019 9:25:00 AM Name: ELIZABETH MODI Date of : 1940 Age: 79 years Gender: M Medical History Tobacco: Former PAD: Yes Hypertension: Yes Diabetes: Yes Clinical Indication Post operative right VENTILATION EQUIPMENT TENDER endarterectomy. TECHNIQUE -------- An arterial physiological examination [...] Interpreting physician: Gordo Figueroa MD Final RP Ironing Pleater: RICHARD Transcribe Date/Time: Sep 03 2019 9:25A Dictated by : GORDO FIGUEROA MD This examination was interpreted and the report reviewed and electronically signed by: GORDO FIGUEROA MD on Sep 05 2019 9:48AM EST Normal [facility] US VEIN MAPPING LOWER BILon 09-03-2019 US VEIN MAPPING LOWER JIGNA * * *Final Rep ort* * * DATE OF EXAM: Sep 02 2019 10:07PM [facility] 1081 - US VEIN MAPPING LOWER JIGNA [...] lower extremity. Superficial venous measurements as above. Ironing Pleater: PSCB Transcribe Date/Time: Sep 02 2019 10:28P Dictated by : DWAYNE BURTON MD This examination was interpreted and the report reviewed and electronically signed by: DWAYNE BURTON MD on Sep 02 2019 10:38PM [facility] ANES PREOPon 09-02-2019 ANES PREOP HNO ID: [id number] Author: Tammy Hinson Service: Anesthesiology Author Type: [...] (Res) Westling, DO 4 Units at 09/01/19 175 - [MAR Hold due to Transfer] gabapentin [...] MEALS Doris Midha 1,000 mg at 09/01/19 175 - [MAR Hold due to Transfer] insulin glargine 10 Units pen (long acting) (LANTUS SOLOSTAR, BASAGLAR KWIKPEN) 10 Units SUBCUTANEOUS AT BEDTIME Tom (Res) Westling, DO 10 Units at 09/01/19 2300 - [...] (LIPITOR) 40 mg ORAL DAILY Tom (Res) Kenyon, DO 40 mg at 09/01/192028 - [MAR Hold due to Transfer] lisinopril 10 mg tab(s) (ZESTRIL, PRINIVIL) 10 mg ORAL DAILY Tom (Res) Westthelma, DO 10 mg at 09/01/19 0849 - [MAR Hold due to Transfer] levothyroxine 25 mcg tab(s) (SYNTHROID) 25 mcg ORAL DAILY Tom (Res) Westthelma, DO 25 mcg at 09/02/19 0453 - [MAR Hold due to Transfer] dextrose 40 % 15 g 15 g ORAL PRN Tom (Res) Kenyon, DO Or - [MAR Hold due to Transfer] glucagon 1 mg injection (GLUCAGEN) 1 mg INTRAMUSCULAR PRN Tom (Res) Kenyon, DO Or - [MAR Hold due to Transfer] dextrose 50% in water 25 mL syringe 12.5 g INTRAVENOUS PRN Tom Prescott DO Allergies: ALLERGIES No Known Allergies DOS [...] September 02, 2019 TIME: 9:50 AM CSN: [id number] Normal [facility] BRIEF OP NOTon 09-02-2019 BRIEF OP NOT HNO ID: [id number] Author: Francine Roberts Service: Vascular Surgery Author [...] BRIEF OPERATIVE / PROCEDURE NOTE LOG ID: [id number] Patient Name:Elizabeth Modi CSN: [id number] Surgery/Procedure Date: 09/02/2019 Incision/Procedure Start Time: 11:01 AM Incision Close/Procedure End Time: Surgeon(s)/Procedurali st(s) and Medical Aides Teacher(s): Surgeon(s) and Role: * Jovanny Parmar - Primary * Francine (Kim) Phyllis - Resident - Assisting Extension Supervisor: Lori Schmid SA Procedure(s): Procedure(s) (LRB): [...] 02, 2019 TIME: 12:47 PM PAGER/CONTACT #: [phone] Normal [facility] Basic Panelon 09-02-2019 Creatinine [Mass/Vol] 0.78 mg/dL Normal 0.67-1.17 [facility] Comment on above: Result Comment: Use of this assay is not recommended for patients undergoing treatment with phenindione, due to the potential for falsely depressed results. Performed By: #### M AG #### [place] [address] Anion gap [Moles/Vol] 12 mmol/L Normal 8-16 [facility] Comment on above: Performed By: #### M AG #### [facility] [address] [place], [place] [address] Calcium [Mass/Vol] 8.4 mg/dL Low 8.5-10.1 [facility] Comment on above: Performed By: #### M AG #### [facility] [address] [place], [place] [address] CO2 [Moles/Vol] 24 mmol/L Normal 21-32 [facility] Comment on above: Performed By: #### M AG #### [facility] [address] [place], [place] [address] Urea nitrogen [Mass/Vol] 24 mg/dL High 7-18 [facility] Comment on above: Performed By: #### M AG #### [facility] [address] [place], [place] [address] Glucose [Mass/Vol] 148 mg/dL High 70-99 [facility] Comment on above: Performed By: #### M AG #### [facility] [address] [place], [place] [address] Chloride [Moles/Vol] 104 mmol/L Normal 98-107 [facility] Comment on above: Performed By: #### M AG #### [facility] [address] [place], [place] [address] Potassium [Moles/Vol] 4.1 mmol/L Normal 3.5-5.1 [facility] Comment on above: Performed By: #### M AG #### [address] [address] Sodium [Moles/Vol] 136 mmol/L Normal 136-145 [facility] Comment on above: Performed By: #### M AG #### [address] [address] CONSULT PROGon 09-02-2019 CONSULT PROG HNO ID: [id number] Author: Doris Eden Service: Endocrinology Author Type: Physician Type: Consult Progress Note Filed: 09/02/2019 1:35 PM Note Text: ENDOCRINOLOGY CONSULT PROGRESS NOTE SERVICE DATE: 09/02/2019 SERVICE TIME: 1:25 PM Subjective INTERVAL HPI: Pt followed for diabetes mellitus type 2 with complications. Tr from [place]; adm for right foot infection and gangrene; [...] 1:35 PM PAGER: [phone] Normal [facility] Hemogramon 09-02-2019 Erythrocyte distribution width (RBC) [Ratio] 14.9 % High 11.6-14.4 [facility] Comment on above: Performed By: #### C BC1 #### [place] [address] Hematocrit (Bld) [Volume fraction] 33.4 % Low 40.1-51.0 [facility] Comment on above: Performed By: #### C BC1 #### [place] [address] Hemoglobin (Bld) [Mass/Vol] 10.3 g/dL Low 13.7-17.5 [facility] Comment on above: Performed By: #### C BC1 #### [place] [address] MCH (RBC) [Entitic mass] 28.1 pg Normal 25.7-32.2 [facility] Comment on above: Performed By: #### C BC1 #### [place] [address] MCHC (RBC) [Mass/Vol] 30.8 % Low 32.3-36.5 [facility] Comment on above: Performed By: #### C BC1 #### [place] [address] MCV (RBC) [Entitic vol] 91.0 fL Normal 83.2-95.6 [facility] Comment on above: Performed By: #### C BC1 #### [place] [address] Platelet mean volume (Bld) [Entitic vol] 9.7 fL Normal 8.7-12.0 [facility] Comment on above: Performed By: #### C BC1 #### [facility] [address] [place] [address] Platelets (Bld) [#/Vol] 425 thou/cmm High 141-365 [facility] Comment on above: Performed By: #### C BC1 #### [facility] [address] [place] [address] RBC (Bld) [#/Vol] 3.67 mil/cmm Low 4.63-6.08 [facility] Comment on above: Performed By: #### C BC1 #### [facility] [address] [place] [address] RDW SD 47.8 fl High 36.1-45.8 [facility] Comment on above: Performed By: #### C BC1 #### [facility] [address] [place] [address] WBC (Bld) [#/Vol] 9.66 thou/cmm High 4.23-9.07 [facility] Comment on above: Performed By: #### C BC1 #### [place] [address] Magnesium Bloodon 09-02-2019 Magnesium [Mass/Vol] 1.5 mg/dL Low 1.6-2.6 [facility] Comment on above: Performed By: #### M AG #### [place] [address] OPERATIVE NOon 09-02-2019 OPERATIVE NO HNO ID: [id number] Author: Jovanny Parmar Service: Vascular Surgery Author Type: Physician Type: Operative Report Filed: 09/30/2019 2:43 PM Note Text: [facility] - Operative Report ELIZABETH MODI : 1940 AGE: 79. SEX: M PATIENT TYPE: I HOSP SVC: KEENAN LOCATION: [facility] ATTENDING PHYSICIAN: JOVANNY PARMAR CSN NUMBER: [id number] DATE OF SURGERY/PROCEDURE: 09/02/2019 INCISION/PROCEDURE START TIME: 12:28 PM INCISION CLOSE/PROCEDURE END TIME: 2:14 PM PREOPERATIVE DIAGNOSIS: Gangrene, right lower extremity. POSTOPERATIVE DIAGNOSIS: Gangrene, right lower extremity. SURGEON: Jovanny Parmar MD STAIN APPLICATOR: Francine Roberts. SURGERY/PROCEDURE: Right femoral endarterectomy with [...] recovery in stable condition. Jovanny Parmar MD LM:[id number] [facility] PROGRESSon 09-02-2019 PROGRESS HNO ID: [id number] Author: Zack Jenkins Service: Hospital Medicine Author Type: Physician Type: Progress Notes Filed: 09/02/2019 5:22 PM Note Text: DEPARTMENT OF HOSPITAL MEDICINE PROGRESS NOTE SERVICE DATE: 09/02/2019 SERVICE TIME: 9am Hospital Medicine/Primary Attending: Zack Jenkins, DO NIGHT AND WEEKEND COVERAGE: After 7pm please page [phone] CHIEF COMPLAINT: No new complaints SUBJECTIVE: Pt [...] amputation -Angio 08/26 showing partial occlusion R VENTILATION EQUIPMENT TENDER -Vascular and Ortho consults -Plan is for?endarterectomy [...] this note may have been generated using [employer] voice recognition software. Reasonable efforts were made to correct any dictation errors that resulted due to the programming of this software but some may still be present. Normal [facility] PROGRESS HNO ID: [id number] Author: Francine Roberts Service: Vascular Surgery Author [...] questions or concerns Mon-Fri 6a-5p please page [phone]. After 5pm and on Weekends and Holidays, please page [phone] if in ICU or [phone] if on [...] lower extremity angiogram with partial occlusion R VENTILATION EQUIPMENT TENDER, reconstitution at R below knee pop, 2-vessel [...] questions or concerns Mon-Mon 6a-5p please page [phone]. After 5pm and on Weekends and Holidays, please page [phone] if in ICU or [phone] if on RNF. Normal [facility] PT EDon 09-02-2019 PT ED HNO ID: [id number] Author: Chelsea (Rn) Shun Paz RN Service: [...] Department: [place] SURGERY OR Normal [facility] Phosphorus Bloodon 0 Phosphate [Mass/Vol] 2.9 mg/dL Normal 2.5-4.9 [facility] Comment on above: Performed By: #### P 8 #### [place] [address] CONSULT PROGon 09-01-2019 CONSULT PROG HNO ID: [id number] Author: Doris Eden Service: Endocrinology Author Type: Physician Type: Consult Progress Note Filed: 09/01/2019 9:12 AM Note Text: ENDOCRINOLOGY CONSULT PROGRESS NOTE SERVICE DATE: 09/01/2019 SERVICE TIME: 9:05 AM Subjective INTERVAL HPI: Pt followed for diabetes mellitus type 2 with complications. Tr from [place]; adm for right foot infection and gangrene; [...] 9:12 AM PAGER: [phone] Normal [facility] Hemogramon 09-01-2019 Erythrocyte distribution width (RBC) [Ratio] 14.9 % High 11.6-14.4 [facility] Comment on above: Performed By: #### M AG #### [facility] [address] [place], [place] [address] Hematocrit (Bld) [Volume fraction] 27.1 % Low 40.1-51.0 [facility] Comment on above: Performed By: #### M AG #### [facility] [address] [place] [address] Hemoglobin (Bld) [Mass/Vol] 8.5 g/dL Low 13.7-17.5 [facility] Comment on above: Performed By: #### M AG #### [facility] [address] [place] [address] MCH (RBC) [Entitic mass] 28.1 pg Normal 25.7-32.2 [facility] Comment on above: Performed By: #### M AG #### [facility] [address] [place] [address] MCHC (RBC) [Mass/Vol] 31.4 % Low 32.3-36.5 [facility] Comment on above: Performed By: #### M AG #### [facility] [address] [place] [address] MCV (RBC) [Entitic vol] 89.7 fL Normal 83.2-95.6 [facility] Comment on above: Performed By: #### M AG #### [facility] [address] [place] [address] Platelet mean volume (Bld) [Entitic vol] 9.4 fL Normal 8.7-12.0 [facility] [employer] Comment on above: Performed By: #### M AG #### [facility] [address] [place] [address] Platelets (Bld) [#/Vol] 334 thou/cmm Normal 141-365 [facility] Comment on above: Performed By: #### M AG #### [facility] [address] [place] [address] RBC (Bld) [#/Vol] 3.02 mil/cmm Low 4.63-6.08 [facility] Comment on above: Performed By: #### M AG #### [facility] [address] [place] [address] RDW SD 46.4 fl High 36.1-45.8 [facility] Comment on above: Performed By: #### M AG #### [facility] [address] [place], [place] [address] WBC (Bld) [#/Vol] 7.69 thou/cmm Normal 4.23-9.07 [facility] Comment on above: Performed By: #### M AG #### [facility] [address] [place], [place] [address] PROGRESSon 09-01-2019 PROGRESS HNO ID: [id number] Author: Zack Jenkins Service: Hospital Medicine Author Type: Physician Type: Progress Notes Filed: 09/01/2019 4:10 PM Note Text: DEPARTMENT OF HOSPITAL MEDICINE PROGRESS NOTE SERVICE DATE: 09/01/2019 SERVICE TIME: 4:07 PM Hospital Medicine/Primary Attending: Zack Jenkins, DO NIGHT AND WEEKEND COVERAGE: After 7pm please page [phone] CHIEF COMPLAINT: No new complaints SUBJECTIVE: Pt [...] amputation -Angio 08/26 showing partial occlusion R VENTILATION EQUIPMENT TENDER -Vascular and Ortho consults -Plan is for?endarterectomy [...] this note may have been generated using Dragon voice recognition software. Reasonable efforts were made to correct any dictation errors that resulted due to the programming of this software but some may still be present. Normal [facility] PROGRESS HNO ID: [id number] Author: Francine Roberts Service: Vascular Surgery Author [...] and on Weekends and Holidays, please page [phone] if in ICU or [phone] if on RNF. Subjective SUBJECTIVE: NAEON. Denies [...] 0659 09/01/19 0700 - 09/02/19 0659 Shift 9920-1068 5571-5193 6509-4551 24 Hour Total 0299-2096 1091-4683 8795-0163 24 Hour Total INTAKE Shift Total OUTPUT [...] lower extremity angiogram with partial occlusion R VENTILATION EQUIPMENT TENDER, reconstitution at R below knee pop, 2-vessel [...] 2174 if on RNF. Normal [facility] THERAPY NTon 09-01-2019 THERAPY NT HNO ID: [id number] Author: Sheridan (Pt) Antwan Service: Physical Therapy Author Type: Physical Therapist Type: Therapy (PT/OT/Speech/Resp) Filed: 09/01/2019 4:02 PM Note Text: Physical Therapy Treatment SERVICE DATE: 09/01/2019 SERVICE TIME: 1520 to 1538 ROOM: [id number] Recommended Discharge Disposition: Acute Rehab Justification For [...] l;Muscle Weakness (generalized) Interventions Provided: Therapeutic Activity (56544) Therapeutic Activity (74551) Treatment Minutes: 18 1 unit Skilled Intervention(s): Functional mobility performed as described below. In EOB sitting for improved strength, ROM, conditioning, function: L ankle DF/PF, glute sets, LAQs, marching, abd/iso add, 2 x 10 reps each; instructed ex technique with short rest breaks needed. Pt education re: rehab process s/p amputation; practiced scooting along EOB for carryover to ipptogo-yc-cdkwnol transfers, pt education / cues for increased [...] Lives With: Self/Alone Assistance Available: real time trader Entry To Home: Stairs;With Rail Number Of [...] Toilet/Commode Gait Stairs Curb Step Car Transfer -M: 3: Sit at edge of bed Please see discipline specific clinical documentation flowsheet for complete details for this therapy evaluation/treatment. SIGNATURE: Sheridan Moncada PT PATIENT NAME: Elizabeth Modi DATE: September 01, 2019 TIME: 3:55 PM Normal [facility] Basic Panelon 08-31-2019 Creatinine [Mass/Vol] 0.76 mg/dL Normal 0.67-1.17 [facility] Comment on above: Result Comment: Use of this assay is not recommended for patients undergoing treatment with phenindione, due to the potential for falsely depressed results. Performed By: #### C _ANA #### [address] [address] Anion gap [Moles/Vol] 11 mmol/L Normal 8-16 [facility] Comment on above: Performed By: #### C _ANA #### [address] [address] Calcium [Mass/Vol] 8.2 mg/dL Low 8.5-10.1 [facility] Comment on above: Performed By: #### C _ANA #### [address] [address] CO2 [Moles/Vol] 23 mmol/L Normal 21-32 [facility] Comment on above: Performed By: #### C _ANA #### [address] [address] Glucose [Mass/Vol] 85 mg/dL Normal 70-99 [facility] Comment on above: Performed By: #### C _ANA #### [address] [address] Urea nitrogen [Mass/Vol] 21 mg/dL High 7-18 [facility] Comment on above: Performed By: #### C _ANA #### [address] [address] Chloride [Moles/Vol] 106 mmol/L Normal 98-107 [facility] Comment on above: Performed By: #### C _ANA #### [address] [address] Potassium [Moles/Vol] 3.9 mmol/L Normal 3.5-5.1 [facility] Comment on above: Performed By: #### C _ANA #### [facility] [address] [place], [place] [address] Sodium [Moles/Vol] 136 mmol/L Normal 136-145 [facility] Comment on above: Performed By: #### C _ANA #### [facility] [address] [place], [place] [address] CONSULT PROGon 08-31-2019 CONSULT PROG HNO ID: [id number] Author: Doris Eden Service: Endocrinology Author Type: Physician Type: Consult Progress Note Filed: 08/31/2019 8:08 AM Note Text: ENDOCRINOLOGY CONSULT PROGRESS NOTE SERVICE DATE: 08/31/2019 SERVICE TIME: 7:50 AM Subjective INTERVAL HPI: Pt followed for diabetes mellitus type 2 with complications. Tr from [place]; adm for right foot infection and gangrene; [...] 8:08 AM PAGER: [phone] Normal [facility] Hemogramon 08-31-2019 Erythrocyte distribution width (RBC) [Ratio] 14.5 % High 11.6-14.4 [facility] Comment on above: Performed By: #### M AG #### [address] [address] Hematocrit (Bld) [Volume fraction] 31.2 % Low 40.1-51.0 [facility] Comment on above: Performed By: #### M AG #### [address] [address] Hemoglobin (Bld) [Mass/Vol] 10.0 g/dL Low 13.7-17.5 [facility] Comment on above: Performed By: #### M AG #### [address] [address] MCH (RBC) [Entitic mass] 28.7 pg Normal 25.7-32.2 [facility] Comment on above: Performed By: #### M AG #### [facility] [address] [place] [address] MCHC (RBC) [Mass/Vol] 32.1 % Low 32.3-36.5 [facility] Comment on above: Performed By: #### M AG #### [facility] [address] [place] [address] MCV (RBC) [Entitic vol] 89.4 fL Normal 83.2-95.6 [facility] Comment on above: Performed By: #### M AG #### [facility] [address] [place] [address] Platelet mean volume (Bld) [Entitic vol] 9.4 fL Normal 8.7-12.0 [facility] Comment on above: Performed By: #### M AG #### [facility] [address] [place] [address] Platelets (Bld) [#/Vol] 385 thou/cmm High 141-365 [facility] Comment on above: Performed By: #### M AG #### [place] [address] RBC (Bld) [#/Vol] 3.49 mil/cmm Low 4.63-6.08 [facility] Comment on above: Performed By: #### M AG #### [facility] [address] [place] [address] RDW SD 45.1 fl Normal 36.1-45.8 [facility] Comment on above: Performed By: #### M AG #### [facility] [address] [place] [address] WBC (Bld) [#/Vol] 8.81 thou/cmm Normal 4.23-9.07 [facility] Comment on above: Performed By: #### M AG #### [place] [address] Magnesium Bloodon 08-31-2019 Magnesium [Mass/Vol] 1.1 mg/dL Low 1.6-2.6 [facility] Comment on above: Performed By: #### M AG #### [facility] [address] [place] [address] PROGRESSon 08-31-2019 PROGRESS HNO ID: [id number] Author: Zack Jenkins Service: Hospital Medicine Author Type: Physician Type: Progress Notes Filed: 08/31/2019 4:57 PM Note Text: DEPARTMENT OF HOSPITAL MEDICINE PROGRESS NOTE SERVICE DATE: 08/31/2019 SERVICE TIME: 4:53 PM Hospital Medicine/Primary Attending: Zack Jenkins, DO NIGHT AND WEEKEND COVERAGE: After 7pm please page [phone] CHIEF COMPLAINT: no new complaints SUBJECTIVE: Pt [...] reviewed for today's visit: CBC: Recent Labs 08/31/19419 WBC 8.81 RBC 3.49* HB 10.0* HCT 31.2* PLT 385* MCV 89.4 MCH 28.7 MPV 9.4 RDW 14.5* Coags: No results for input(s): INR, APTT in the last 24 hours. Invalid input(s): PT BMP: Recent Labs 08/31/19419 NA 136 K 3.9 CHLOR 106 CO2 23 BUN 21* CREAT 0.76 GLUC 85 CMP: Recent Labs 08/31/19419 NA 136 K 3.9 CHLOR 106 CO2 [...] amputation -Angio 08/26 showing partial occlusion R VENTILATION EQUIPMENT TENDER -Vascular and Ortho consults -Plan is for?endarterectomy [...] Q BID?? ? Disposition:?Home with [facility]?pending progress and surgery? Plan of care discussed with: Provider, RN, Patient SIGNATURE: Zack Jenkins DO PATIENT NAME: Elizabeth Modi DATE: August 31, 2019 TIME: 4:53 PM PAGER/CONTACT #: Team color pager Disclaimer: Portions of this note may have been generated using [employer] voice recognition software. Reasonable efforts were made to correct any dictation errors that resulted due to the programming of this software but some may still be present. Normal [facility] PROGRESS HNO ID: [id number] Author: Francine Roberts Service: Vascular Surgery Author [...] questions or concerns Mon-Mon 6a-5p please page [phone]. After 5pm and on Weekends and Holidays, please page [phone] if in ICU or [phone] if on [...] 0659 08/31/19 07 - 09/01/19 0659 Shift 6158-6782 3530-4857 1088-8180 24 Hour Total 7426-7388 3397-0349 0187-9556 24 Hour Total INTAKE Shift Total OUTPUT Urine 500 921 789 3670 Void (ml) 500 292 129 5982 # of BMs Number of BMs 1 x 1 x Shift Total 500 459 888 8650 Weight (kg) 90.9 90.9 89.6 89.6 89.6 [...] disease, HTN, dyslipidemia,claudicat ion, DM. 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 Normal [facility] Phosphorus Bloodon 0 Phosphate [Mass/Vol] 3.3 mg/dL Normal 2.5-4.9 [facility] Comment on above: Performed By: #### C BC1 #### [place] [address] Basic Panelon 08-30-2019 Creatinine [Mass/Vol] 0.80 mg/dL Normal 0.67-1.17 [facility] Comment on above: Result Comment: Use of this assay is not recommended for patients undergoing treatment with phenindione, due to the potential for falsely depressed results. Performed By: #### M AG #### [place] [address] Anion gap [Moles/Vol] 12 mmol/L Normal 8-16 [facility] Comment on above: Performed By: #### M AG #### [place] [address] Calcium [Mass/Vol] 7.7 mg/dL Low 8.5-10.1 [facility] Comment on above: Performed By: #### M AG #### [facility] [address] [place], [place] [address] CO2 [Moles/Vol] 24 mmol/L Normal 21-32 [facility] Comment on above: Performed By: #### M AG #### [facility] [address] [place], [place] [address] Glucose [Mass/Vol] 70 mg/dL Normal 70-99 [facility] Comment on above: Performed By: #### M AG #### [facility] [address] [place], [place] [address] Urea nitrogen [Mass/Vol] 16 mg/dL Normal 7-18 [facility] Comment on above: Performed By: #### M AG #### [facility] [address] [place] [address] Chloride [Moles/Vol] 106 mmol/L Normal 98-107 [facility] Comment on above: Performed By: #### M AG #### [facility] [address] [place], [place] [address] Potassium [Moles/Vol] 4.0 mmol/L Normal 3.5-5.1 [facility] Comment on above: Performed By: #### M AG #### [facility] [address] [place], [place] [address] Sodium [Moles/Vol] 138 mmol/L Normal 136-145 [facility] Comment on above: Performed By: #### M AG #### [facility] [address] [place], [place] [address] CONSULT PROGon 08-30-2019 CONSULT PROG HNO ID: [id number] Author: Doris Eden Service: Endocrinology Author Type: Physician Type: Consult Progress Note Filed: 08/30/2019 8:57 AM Note Text: ENDOCRINOLOGY CONSULT PROGRESS NOTE SERVICE DATE: 08/30/2019 SERVICE TIME: 8:45 AM Subjective INTERVAL HPI: Pt followed for diabetes mellitus type 2 with complications. Tr from [place]; adm for right foot infection and gangrene; [...] August 30, 2019 TIME: 8:57 AM PAGER: [phone] Normal [facility] Hemogramon 08-30-2019 Erythrocyte distribution width (RBC) [Ratio] 14.1 % Normal 11.6-14.4 [facility] Comment on above: Performed By: #### C BC1 #### [facility] [address] [place], [place] [address] Hematocrit (Bld) [Volume fraction] 28.8 % Low 40.1-51.0 [facility] Comment on above: Performed By: #### C BC1 #### [facility] [address] [place], [place] [address] Hemoglobin (Bld) [Mass/Vol] 9.0 g/dL Low 13.7-17.5 [facility] Comment on above: Performed By: #### C BC1 #### [facility] [address] [place], [place] [address] MCH (RBC) [Entitic mass] 28.3 pg Normal 25.7-32.2 [facility] Comment on above: Performed By: #### C BC1 #### [facility] [address] [place], [place] [address] MCHC (RBC) [Mass/Vol] 31.3 % Low 32.3-36.5 [facility] Comment on above: Performed By: #### C BC1 #### [facility] [address] [place], [place] [address] MCV (RBC) [Entitic vol] 90.6 fL Normal 83.2-95.6 [facility] Comment on above: Performed By: #### C BC1 #### [facility] [address] [place], [place] [address] Platelet mean volume (Bld) [Entitic vol] 9.7 fL Normal 8.7-12.0 [facility] Comment on above: Performed By: #### C BC1 #### [facility] [address] [place], [place] [address] Platelets (Bld) [#/Vol] 388 thou/cmm High 141-365 [facility] Comment on above: Performed By: #### C BC1 #### [facility] [address] [place], [place] [address] RBC (Bld) [#/Vol] 3.18 mil/cmm Low 4.63-6.08 [facility] Comment on above: Performed By: #### C BC1 #### [facility] [address] [place] [id number] RDW SD 44.2 fl Normal 36.1-45.8 [facility] Comment on above: Performed By: #### C BC1 #### [facility] [address] [place] [id number] WBC (Bld) [#/Vol] 9.52 thou/cmm High 4.23-9.07 [facility] Comment on above: Performed By: #### C BC1 #### [facility] [address] [place] [id number] NUTRITIONon 08-30-2019 NUTRITION HNO ID: [id number] Author: Snow Serna Service: Nutrition Therapy Author Type: Registered Dietitian Type: Nutrition Filed: 08/30/2019 1:41 PM Note Text: NUTRITION THERAPY PROGRESS NOTE SERVICE DATE: 08/30/2019 SERVICE TIME: 11:33 AM Nutrition Assessment: Recommended Malnutrition Diagnosis: Moderate Protein-Calorie Malnutrition (08/22/19 1436 : Keturah (Sanitation Worker) Valery) Estimated kilocalorie needs: 8252-6372 Calorie Calculation Method: 30-35 kcals/kg Estimated protein [...] August 30, 2019 TIME: 11:33 AM PAGER: [phone] Normal [facility] PROGRESSon 08-30-2019 PROGRESS HNO ID: [id number] Author: Zack Jenkins Service: Hospital Medicine Author Type: Physician Type: Progress Notes Filed: 08/30/2019 5:31 PM Note Text: DEPARTMENT OF HOSPITAL MEDICINE PROGRESS NOTE SERVICE DATE: 08/30/2019 SERVICE TIME: 5:24 PM Hospital Medicine/Primary Attending: Zack Jenkins, DO NIGHT AND WEEKEND COVERAGE: After 7pm please page [phone] CHIEF COMPLAINT: R lower leg pain SUBJECTIVE: [...] amputation -Angio 08/26 showing partial occlusion R VENTILATION EQUIPMENT TENDER -Vascular and Ortho consults -Plan is for [...] Q BID?? ? Disposition:?Home with [facility]?pending progress and surgery? Plan of care discussed with: Provider, RN, Patient SIGNATURE: Zack Jenkins DO PATIENT NAME: Elizabeth Modi DATE: August 30, 2019 TIME: 5:24 PM PAGER/CONTACT #: Erasmo color pager Disclaimer: Portions of this note may have been generated using [employer] voice recognition software. Reasonable efforts were made to correct any dictation errors that resulted due to the programming of this software but some may still be present. [facility] PROGRESS HNO ID: [id number] Author: Francine Roberts Service: General Surgery Author [...] questions or concerns Mon-Fri 6a-5p please page [phone]. After 5pm and on Weekends and Holidays, please page [phone] if in ICU or [phone] if on RNF. Subjective SUBJECTIVE: Mr. Modi [...] 0659 08/30/19 07 - 08/31/19 0659 Shift 6975-9798 0797-5884 6125-4544 24 Hour Total 8248-9252 9909-7976 3525-5356 24 Hour Total INTAKE IV 1100 1100 [...] on 08/27/2019 - showing partial occlusion R VENTILATION EQUIPMENT TENDER - Endarterectomy on Monday, then determination on AKA/BKA following that procedure - PAD-continue statin?and aspirin -?Further care per primary SIGNATURE: Ema Lauriwestleyamor Ms PATIENT NAME: Elizabeth Modi DATE: August [...] 2174 if on RNF. Normal [facility] THERAPY NTon 08-30-2019 THERAPY NT HNO ID: [id number] Author: Tanja Drummond Service: Physical Therapy Author Type: Physical Therapist Type: Therapy (PT/OT/Speech/Resp) Filed: 08/30/2019 5:00 PM Note Text: Physical Therapy Treatment SERVICE DATE: 08/30/2019 SERVICE TIME: 1415 to 1500 ROOM: [place] [address] Recommended Discharge Disposition: Acute Rehab Recommended Discharge [...] l;Muscle Weakness (generalized) Interventions Provided: Therapeutic Exercise (09385);Therapeutic Activity (26972) Therapeutic Exercise (07987) Treatment Minutes: 25 2 units Skilled Intervention(s): Patient completed general strengthening exercises in supine, sitting (ankle pump, quad set, gluteal set, heel slide, hip abd/add, straight leg raise, long arc quad, short arc quad, hip adductor squeeze, assisted bridging) x 15-20 reps bilateral lower extremity, with min assist, with min verbal/tactile cues for optimal muscle recruitment, muscle activation, and muscle strengthening. Therapeutic Activity (60109) Treatment Minutes: 15 1 unit Skilled Intervention(s): [...] Lives With: Self/Alone Assistance Available: real time trader Entry To Home: Stairs;With Rail Number Of [...] evaluation/treatment. SIGNATURE: Tanja Drummond, PT PATIENT NAME: lEizabeth Modi DATE: August 30, 2019 TIME: 4:56 PM Normal [facility] Basic Panelon 08-29-2019 Creatinine [Mass/Vol] 0.80 mg/dL Normal 0.67-1.17 [facility] Comment on above: Result Comment: Use of this assay is not recommended for patients undergoing treatment with phenindione, due to the potential for falsely depressed results. Performed By: #### C _ANA #### [address] [address] Anion gap [Moles/Vol] 9 mmol/L Normal 8-16 [facility] Comment on above: Performed By: #### C _ANA #### [address] [address] CO2 [Moles/Vol] 27 mmol/L Normal 21-32 [facility] Comment on above: Performed By: #### C _ANA #### [address] [address] Glucose [Mass/Vol] 83 mg/dL Normal 70-99 [facility] Comment on above: Performed By: #### C _ANA #### [address] [address] Urea nitrogen [Mass/Vol] 14 mg/dL Normal 7-18 [facility] Comment on above: Performed By: #### C _ANA #### [address] [address] Calcium [Mass/Vol] 7.9 mg/dL Low 8.5-10.1 [facility] Comment on above: Performed By: #### C _ANA #### [facility] [address] [place] [address] Chloride [Moles/Vol] 106 mmol/L Normal 98-107 [facility] Comment on above: Performed By: #### C _ANA #### [facility] [address] [place] [address] Potassium [Moles/Vol] 4.0 mmol/L Normal 3.5-5.1 [facility] Comment on above: Performed By: #### C _ANA #### [facility] [address] [place] [address] Sodium [Moles/Vol] 138 mmol/L Normal 136-145 [facility] Comment on above: Performed By: #### C _ANA #### [facility] [address] [place] [address] CASE MANAGEMon 08-29-2019 CASE MANAGEM HNO ID: [id number] Author: Tami SantiagoRn) YURI Patricio Service: Care Management Author Type: Registered Nurse Type: Care Mgt Progress Note Filed: 08/29/2019 11:27 AM Note Text: CARE MANAGEMENT PROGRESS NOTE SERVICE DATE: 08/29/2019 SERVICE TIME: 11:27 AM LOS: 8 days Chart reviewed. 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 Referral to [facility]- pt will need precert. Will follow clinical progress. SIGNATURE: Tami Patricio RN PATIENT NAME: Elizabeth Modi DATE: August 29, 2019 TIME: 11:27 AM PAGER/CONTACT #: [phone] [facility] CONSULT PROGon 08-29-2019 CONSULT PROG HNO ID: [id number] Author: Luke Briones (Gurwinder) Sailaja Service: Wound/Ostomy Author Type: Nurse Practitioner Type: Consult Progress Note Filed: 08/29/2019 3:36 PM Note Text: WOUND CARE CONSULT FACING CUTTING MACHINE OPERATOR NOTE SERVICE DATE: 08/29/2019 SERVICE TIME: 14:45 TIME SPENT (minutes): 30 REASON FOR CONSULT: Reevaluation of right leg wounds and overall skin check. CHIEF COMPLAINT: Recent surgery to right leg with more coming on Monday Subjective HISTORY OF PRESENT ILLNESS: Mr. Modi is a 79 year old male who is seen today with Leila Goel, Wound/general manager oracle data [employer], and presented to hospital with complaints of [...] on Monday09/02/19 for right femoral endartectomy. Obtained [employer] heel boot for patient's left heel and seat cushion. Will order patient [id number] mattress and turn and reposition every 2 hours or more often. A photo was taken of the patient's wound(s). Photos can be found under the Get Images tab on Outline. Photos are uploaded by the wound ocular care technologist and may not be immediately available for viewing. Contact the wound and ostomy care department with questions. SIGNATURE: Luke Menard APRN.DIESEL ENGINE ASSEMBLER,CWOCN PATIENT NAME: Elizabeth Modi DATE: August 29, 2019 TIME: 3:23 PM CONTACT#: [id number] [facility] CONSULT PROG HNO ID: [id number] Author: Doris Eden Service: Endocrinology Author Type: Physician Type: Consult Progress Note Filed: 08/29/2019 8:38 AM Note Text: ENDOCRINOLOGY CONSULT PROGRESS NOTE SERVICE DATE: 08/29/2019 SERVICE TIME: 8:25 AM Subjective INTERVAL HPI: Pt followed for diabetes mellitus type 2 with complications. Tr from [place]; adm for right foot infection and gangrene; [...] 8:38 AM PAGER: [phone] Normal [facility] Hemogramon 08-29-2019 Erythrocyte distribution width (RBC) [Ratio] 14.1 % Normal 11.6-14.4 [facility] Comment on above: Performed By: #### F ERR #### [address] [address] Hematocrit (Bld) [Volume fraction] 27.5 % Low 40.1-51.0 [facility] Comment on above: Performed By: #### F ERR #### [address] [address] Hemoglobin (Bld) [Mass/Vol] 8.8 g/dL Low 13.7-17.5 [facility] Comment on above: Performed By: #### F ERR #### [facility] [address] [place] [address] MCH (RBC) [Entitic mass] 29.0 pg Normal 25.7-32.2 [facility] Comment on above: Performed By: #### F ERR #### [facility] [address] [address] MCHC (RBC) [Mass/Vol] 32.0 % Low 32.3-36.5 [facility] Comment on above: Performed By: #### F ERR #### [facility] [address] [address] MCV (RBC) [Entitic vol] 90.8 fL Normal 83.2-95.6 [facility] Comment on above: Performed By: #### F ERR #### [facility] [address] [address] Nucleated RBC (Bld) [#/Vol] 0.02 thou/cmm High 0.00-0.01 [facility] Comment on above: Performed By: #### F ERR #### [facility] [address] [address] Nucleated RBC/100 WBC (Bld) [Ratio] 0.2 % Normal 0.0-0.2 [facility] Comment on above: Performed By: #### F ERR #### [facility] [address] [address] Platelet mean volume (Bld) [Entitic vol] 9.5 fL Normal 8.7-12.0 [facility] Comment on above: Performed By: #### F ERR #### [facility] [address] [place] [id number] Platelets (Bld) [#/Vol] 430 thou/cmm High 141-365 [facility] Comment on above: Performed By: #### F ERR #### [facility] [address] [id number] RBC (Bld) [#/Vol] 3.03 mil/cmm Low 4.63-6.08 [facility] Comment on above: Performed By: #### F ERR #### [facility] [address] [place], [place] [address] RDW SD 45.0 fl Normal 36.1-45.8 [facility] Comment on above: Performed By: #### F ERR #### [facility] [address] [place], [place] [address] WBC (Bld) [#/Vol] 10.45 thou/cmm High 4.23-9.07 [facility] Comment on above: Performed By: #### F ERR #### [facility] [address] [address] Magnesium Bloodon 08-29-2019 Magnesium [Mass/Vol] 1.6 mg/dL Normal 1.6-2.6 [facility] Comment on above: Performed By: #### M AG #### [facility] [address] [address] PROGRESSon 08-29-2019 PROGRESS HNO ID: [id number] Author: Zack Jenkins Service: Hospital Medicine Author Type: Physician Type: Progress Notes Filed: 08/29/2019 5:59 PM Note Text: DEPARTMENT OF HOSPITAL MEDICINE PROGRESS NOTE SERVICE DATE: 08/29/2019 SERVICE TIME: 5:56 PM Hospital Medicine/Primary Attending: Zack Jenkins, DO NIGHT AND WEEKEND COVERAGE: After 7pm please page [phone] CHIEF COMPLAINT: no new complaints SUBJECTIVE: Pt [...] amputation -Angio 08/26 showing partial occlusion R VENTILATION EQUIPMENT TENDER -Vascular and Ortho consults -Plan is for [...] BID ? Disposition: Home with [facility] pending progress and surgery Plan of care discussed with: Provider, RN, Patient SIGNATURE: Zack Jenkins DO PATIENT NAME: Elizabeth Modi DATE: August 29, 2019 TIME: 5:56 PM PAGER/CONTACT #: Team color pager Disclaimer: Portions of this note may have been generated using [employer] voice recognition software. Reasonable efforts were made to correct any dictation errors that resulted due to the programming of this software but some may still be present. Normal [facility] PROGRESS HNO ID: [id number] Author: Tom Prescott DO Service: General Surgery Author Type: Resident Type: Progress Notes Filed: 08/29/2019 10:01 AM Note Text: Attestation signed by Jovanny Parmar at 08/29/2019 3:11 PM Attending Note I personally saw and examined the patient. I reviewed the resident's note. I agree with the resident's assessment and plan unless otherwise noted. Discussion at bedside and patient and his daughter Daughter states that her father was ambulating [...] O2 Therapy: Room Air IANDO: Date 08/28/19 07 - 08/29/19 0659 08/29/19 07 - 08/30/19 0659 Shift [id number] [id number] 0673-7810 24 Hour Total 0933-4706 3718-0357 3983-3861 24 Hour Total INTAKE Shift Total OUTPUT [...] out of bed to chair - [facility] - Further care per primary Assessment and plan discussed with attending Tom Prescott DO, MBA PGY-1 General Surgery Resident 08/29/2019 10:01 AM Pager below: Vascular AND Thoracic Surgery Service Pager: For questions or concerns Mon-Fri 6a-5p please page [phone]. After 5pm and on Weekends and Holidays, please page [phone] if in ICU or [phone] if on RNF. Normal [facility] THERAPY NTon 08-29-2019 THERAPY NT HNO ID: [id number] Author: Tanja Drummond Service: Physical Therapy Author Type: Physical Therapist Type: Therapy (PT/OT/Speech/Resp) Filed: 08/29/2019 3:21 PM Note Text: Physical Therapy Treatment SERVICE DATE: 08/29/2019 SERVICE TIME: 1138 to 1208 ROOM: [place] [address] Recommended Discharge Disposition: Acute Rehab Recommended Discharge [...] l;Muscle Weakness (generalized) Interventions Provided: Therapeutic Exercise (86465);Therapeutic Activity (23154) Therapeutic Exercise (55027) Treatment Minutes: 15 1 unit Skilled Intervention(s): [...] extremity general strengthening therapeutic exercise. Therapeutic Activity (52425) Treatment Minutes: 10 1 unit Skilled Intervention(s): [...] Lives With: Self/Alone Assistance Available: real time trader Entry To Home: Stairs;With Rail Number Of [...] 2019 TIME: 3:09 PM Normal [facility] Basic Panelon 08-28-2019 Creatinine [Mass/Vol] 0.91 mg/dL Normal 0.67-1.17 [facility] Comment on above: Result Comment: Use of this assay is not recommended for patients undergoing treatment with phenindione, due to the potential for falsely depressed results. Performed By: #### C _ANA #### [address] [address] Anion gap [Moles/Vol] 10 mmol/L Normal 8-16 [facility] Comment on above: Performed By: #### C _ANA #### [address] [address] CO2 [Moles/Vol] 27 mmol/L Normal 21-32 [facility] Comment on above: Performed By: #### C _ANA #### [address] [address] Urea nitrogen [Mass/Vol] 14 mg/dL Normal 7-18 [facility] Comment on above: Performed By: #### C _ANA #### [facility] [address] [place], [place] [address] Calcium [Mass/Vol] 7.5 mg/dL Low 8.5-10.1 [facility] Comment on above: Performed By: #### C _ANA #### [address] [address] Glucose [Mass/Vol] 108 mg/dL High 70-99 [facility] Comment on above: Performed By: #### C _ANA #### [facility] [address] [place], [place] [address] Chloride [Moles/Vol] 105 mmol/L Normal 98-107 [facility] Comment on above: Performed By: #### C _ANA #### [facility] [address] [place], [place] [address] Potassium [Moles/Vol] 4.1 mmol/L Normal 3.5-5.1 [facility] Comment on above: Performed By: #### C _ANA #### [facility] [address] [place], [place] [address] Sodium [Moles/Vol] 138 mmol/L Normal 136-145 [facility] Comment on above: Performed By: #### C _ANA #### [facility] [address] [place], [place] [address] CASE MANAGEMon 08-28-2019 CASE MANAGEM HNO ID: [id number] Author: Tami SantiagoRn) YURI Patricio Service: Care Management Author Type: Registered Nurse Type: Care Mgt Progress Note Filed: 08/28/2019 1:57 PM Note Text: CARE MANAGEMENT PROGRESS NOTE SERVICE DATE: 08/28/2019 SERVICE TIME: 1:56 PM LOS: 7 days Chart reviewed. 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 Referral to [facility]- pt will need precert. Will follow clinical progress. SIGNATURE: Tami Patricio RN PATIENT NAME: Elizabeth Modi DATE: August 28, 2019 TIME: 1:56 PM PAGER/CONTACT #: [phone] [facility] CONSULT PROGon 08-28-2019 CONSULT PROG HNO ID: [id number] Author: Doris Eden Service: Endocrinology Author Type: Physician Type: Consult Progress Note Filed: 08/28/2019 8:31 AM Note Text: ENDOCRINOLOGY CONSULT PROGRESS NOTE SERVICE DATE: 08/28/2019 SERVICE TIME: 8:15 AM Subjective INTERVAL HPI: Pt followed for diabetes mellitus type 2 with complications. Tr from [place]; adm for right foot infection and gangrene; [...] August 28, 2019 TIME: 8:31 AM PAGER: [phone] Normal [facility] Hemogram/Diffon 08-28-2019 Abs Immature Grans 0.21 thou/cmm High 0.00-0.05 [facility] Comment on above: Performed By: #### G LMET #### [facility] [address] [address] Abs Neut (ANC) 7.25 thou/cmm High 1.78-5.38 [facility] Comment on above: Performed By: #### G LMET #### [facility] [address] [address] Abs. Baso 0.02 thou/cmm Normal 0.01-0.08 [facility] Comment on above: Performed By: #### G LMET #### [facility] [address] [address] Abs. Braxton 0.96 thou/cmm High 0.30-0.82 [facility] Comment on above: Performed By: #### G LMET #### [facility] [address] [address] Basophils/100 WBC (Bld) 0.2 % Normal A [facility] Comment on above: Performed By: #### G LMET #### [facility] [address] [address] Eosinophils (Bld) [#/Vol] 0.16 thou/cmm Normal 0.04-0. 54 [facility] Comment on above: Performed By: #### G LMET #### [facility] [address] [address] Eosinophils/100 WBC (Bld) 1.5 % Normal [facility] Comment on above: Performed By: #### G LMET #### [facility] [address] [address] Erythrocyte distribution width (RBC) [Ratio] 13.4 % Normal 11.6-14.4 [facility] Comment on above: Performed By: #### G LMET #### [facility] [address] [address] Hematocrit (Bld) [Volume fraction] 29.8 % Low 40.1-51.0 [facility] Comment on above: Performed By: #### G LMET #### [facility] [address] [address] Hemoglobin (Bld) [Mass/Vol] 9.5 g/dL Low 13.7-17.5 [facility] Comment on above: Performed By: #### G LMET #### [facility] [address] [place], [place] [address] Immature Grans 2.00 % Normal [facility] Comment on above: Performed By: #### G LMET #### [facility] [address] [place], [place] [address] Lymphocytes (Bld) [#/Vol] 1.82 thou/cmm Normal 0.84-2. 85 [facility] Comment on above: Performed By: #### G LMET #### [facility] [address] [place], [place] [address] Lymphocytes/100 WBC (Bld) 17.5 % Normal [facility] Comment on above: Performed By: #### G LMET #### [facility] [address] [place], [place] [address] MCH (RBC) [Entitic mass] 28.4 pg Normal 25.7-32.2 [facility] Comment on above: Performed By: #### G LMET #### [facility] [address] [place], [place] [address] MCHC (RBC) [Mass/Vol] 31.9 % Low 32.3-36.5 [facility] Comment on above: Performed By: #### G LMET #### [facility] [address] [place], [place] [address] MCV (RBC) [Entitic vol] 89.2 fL Normal 83.2-95.6 [facility] Comment on above: Performed By: #### G LMET #### [facility] [address] [place], [place] [address] Monocytes/100 WBC (Bld) 9.2 % Normal [facility] Comment on above: Performed By: #### G LMET #### [facility] [address] [place], [place] [address] Platelet mean volume (Bld) [Entitic vol] 9.6 fL Normal 8.7-12.0 [facility] Comment on above: Performed By: #### G LMET #### [facility] [address] [place], [place] [address] Platelets (Bld) [#/Vol] 390 thou/cmm High 141-365 [facility] Comment on above: Performed By: #### G LMET #### [facility] [address] [place], [place] [address] RBC (Bld) [#/Vol] 3.34 mil/cmm Low 4.63-6.08 [facility] Comment on above: Performed By: #### G LMET #### [facility] [address] [place], [place] [address] RDW SD 43.3 fl Normal 36.1-45.8 [facility] Comment on above: Performed By: #### G LMET #### [facility] [address] [place], [place] [address] Seg Neutrophil 69.6 % Normal [facility] Comment on above: Performed By: #### G LMET #### [facility] [address] [place], [place] [address] WBC (Bld) [#/Vol] 10.42 thou/cmm High 4.23-9.07 [facility] Comment on above: Performed By: #### G LMET #### [facility] [address] [place] [address] Magnesium Bloodon 08-28-2019 Magnesium [Mass/Vol] 1.1 mg/dL Low 1.6-2.6 [facility] Comment on above: Performed By: #### F ERR #### [facility] [address] [address] NM CARDIAC PERF STRESS/PHARM on 08-28-2019 NM CARDIAC PERF STRESS/PHARM * * *Final Report* * * DATE OF EXAM: Aug 28 2019 9:30AM [facility] 0006 - NM CARDIAC PERF STRESS/PHARM / [...] later. See administered doses below. [facility] Date of service: 08/28/2019 9:30:00 [...] Final ------ Stress ECG Report: [facility] Date of service: 08/28/2019 9:30:00 AM Ordering physician: GOLD Estes Specialist: Tawana Larson Medical Aides Teacher: Libertad Rose Stress ECG interpreting physician: Shira [...] for age. The double product achieved was [address]. Peak heart rate was 98 bpm and [...] index (CRI): 0.51 Rate Pressure Product (RPP): 79776 Reason for test termination: End of Protocol. [...] chest sx during test Final ------ Stress Senior Control Systems Engineer Report: [facility] Date of service: 08/28/2019 9:30:00 AM Supervising physician: Shira Zuleta MD PATIENT: Name: ELIZABETH MODI Age: 79 years Gender: M The supervising physician was present during the stress procedure. Final Ironing Pleater: RICHARD Transcribe Date/Time: Aug 28 2019 9:30A Dictated by : IGNACIA MENDEZ MD This examination was interpreted and the report reviewed and electronically signed by: IGNACIA MENDEZ MD on Aug 28 2019 3:54PM EST Normal [facility] NURSING PROGon 08-28-2019 NURSING PROG HNO ID: [id number] Author: Tawana SantiagoRn) YURI Larson Service: Cardiovascular Testing Author Type: Registered Nurse Type: Nursing Progress Note Filed: 08/28/2019 2:58 PM Note Text: Dr Zuleta notified of labs prior to testing.Lexiscan Nuclear Stress Test procedure explained. Patient verbalized understanding and test completed with post nuclear scan to follow. Normal [facility] OPERATIVE NOon 08-28-2019 OPERATIVE NO HNO ID: [id number] Author: Jovanny Parmar Service: Vascular Surgery Author Type: Physician Type: Operative Report Filed: 08/29/2019 3:01 PM Note Text: [facility] - Operative Report ELIZABETH MODI : 1940 AGE: 79. SEX: M PATIENT TYPE: I [facility]OS[facility]: [facility] LOCATION: [facility] ATTENDING PHYSICIAN: Jovanny Parmar MD CSN NUMBER: [id number] DATE OF SURGERY/PROCEDURE: 08/27/2019 INCISION/PROCEDURE START TIME: 10:01 AM INCISION CLOSE/PROCEDURE END TIME: 10:55 AM PREOPERATIVE DIAGNOSIS: Gangrene. POSTOPERATIVE DIAGNOSIS: Gangrene. SURGEON: Jovanny Parmar MD STAIN APPLICATOR: Tom Prescott. SURGERY/PROCEDURE: Angiogram with bilateral lower [...] serially upsized using Seldinger technique through a 5-Yakut sheath and Omni Flush catheter. Aortogram was [...] Recovery in stable condition. Jovanny Parmar MD LM:[id number] /[id number] [facility] PROGRESSon 08-28-2019 PROGRESS HNO ID: [id number] Author: Zack Jenkins Service: Hospital Medicine Author Type: Physician Type: Progress Notes Filed: 08/28/2019 6:10 PM Note Text: DEPARTMENT OF HOSPITAL MEDICINE PROGRESS NOTE SERVICE DATE: 08/28/2019 SERVICE TIME: 6:05 PM Hospital Medicine/Primary Attending: Zack Jenkins, DO NIGHT AND WEEKEND COVERAGE: After 7pm please page [phone] CHIEF COMPLAINT: No new complaints SUBJECTIVE: Pt [...] amputation -Angio 08/26 showing partial occlusion R VENTILATION EQUIPMENT TENDER -Vascular and Ortho consults -Plan is for [...] Q BID Disposition: Home with [facility] pending progress and surgery Plan of care discussed with: Provider, RN, Patient SIGNATURE: Zack Jenkins DO PATIENT NAME: Elizabeth Modi DATE: August 28, 2019 TIME: 6:05 PM PAGER/CONTACT #: Team color pager Disclaimer: Portions of this note may have been generated using [employer] voice recognition software. Reasonable efforts were made to correct any dictation errors that resulted due to the programming of this software but some may still be present. Normal [facility] PROGRESS HNO ID: [id number] Author: Lula Posada (Rt) Service: Radiology Author Type: Cash Management Coordinator Type: Progress Notes Filed: 08/28/2019 3:12 PM [...] next appointment PROCEDURE TYPE: NM Stress: 12.2mCi [id number] was administered IV for Rest Imaging at 1250 by ms. 35.9 mCi [id number] was administered IV for Stress Imaging at 240 by ty. ADMINISTRATION TIME: 1250 PATIENT DISCHARGED TO: Patient taken to IP transport area for return to RNF/ICU/ED. A Diagnostic radioactive procedure has taken place, with no further precautions necessary other than routine body substance precautions. More information regarding radiation safety can be found using this link: [email or web address] [email or web address] [email or web address] SIGNATURE: RT Albino PATIENT NAME: Elizabeth Modi DATE: August 28, 2019 TIME: 3:11 PM PAGER/CONTACT #: Mela [facility] PROGRESS HNO ID: [id number] Author: Francine Roberts Service: Vascular Surgery Author [...] questions or concerns Mon-Fri 6a-5p please page [phone]. After 5pm and on Weekends and Holidays, please page [phone] if in ICU or [phone] if on [...] Air IANDO: Date 08/27/19 07 - 08/28/19 0659 08/28/19 07 - 08/29/19 0659 Shift [id number] 1839-8301 3568-4863 24 Hour Total 8778-3350 8024-4295 5598-9939 24 Hour Total INTAKE PO 30 30 [...] out of bed to chair - [facility] - Plan for OR Monday for femoral endarterectomy and bypass with BKA vs AKA - awaiting cardiac clearance - vein mapping pending - Further care per primary Assessment and plan discussed with attending Francine Roberts MD General Surgery, PGY-3 August 28, 2019 6:36 AM Vascular AND Thoracic Surgery Service Pager: For questions or concerns Mon-Mon 6a-5p please page [phone]. After 5pm and on Weekends and Holidays, please page [phone] if in ICU or [phone] if on RNF. Normal [facility] Phosphorus Bloodon 0 Phosphate [Mass/Vol] 3.3 mg/dL Normal 2.5-4.9 [facility] Comment on above: Performed By: #### P 8 #### [facility] [address] [id number] THERAPY NTon 08-28-2019 THERAPY NT HNO ID: [id number] Author: Tanja (Pt) Hoda Service: Physical Therapy Author Type: Physical Therapist Type: Therapy (PT/OT/Speech/Resp) Filed: 08/28/2019 3:32 PM Note Text: PHYSICAL THERAPY MISSED VISIT SERVICE DATE: 08/28/2019 SERVICE TIME: 1529 to 1529 ROOM: [place] [address] Attempted Treatment. Patient not seen due to Test/Procedure(out of room for stress test). Will reattempt as able. SIGNATURE: Tanja Drummond PT PATIENT NAME: Elizabeth Modi DATE: August 28, 2019 TIME: 3:30 PM Normal [facility] THERAPY NT HNO ID: [id number] Author: An (Otr/L) Paul Service: Occupational Therapy Author Type: Occupational Therapist Type: Therapy (PT/OT/Speech/Resp) Filed: 08/28/2019 11:27 AM Note Text: Occupational Therapy Treatment SERVICE DATE: 08/28/2019 SERVICE TIME: 1026 to 1105 ROOM: [place] [address] Recommended Discharge Disposition: Acute Rehab Recommended Discharge [...] (ADL);General symptoms and signs-other Interventions Provided: Self Longterm Management (80578) Self Longterm Management (38223) Treatment Minutes: 39 3 units Skilled Intervention(s):Full [...] for surgery. Reason for Occupational Therapy Consult: CAPACITY MANAGEMENT SPECIALIST Relevant Past Medical History: thyroid, HTN, DM, [...] Lives With: Self/Alone Assistance Available: real time trader Entry To Home: Stairs;With Rail Number Of [...] complete details for this therapy evaluation/treatment. SIGNATURE: An Miller OTR/L PATIENT NAME: Elizabeth Modi DATE: August 28, 2019 TIME: 11:17 AM [facility] ANES [place] 08-27-2019 ANES POST HNO ID: [id number] Author: Oanh Pugh Service: Anesthesiology Author Type: [...] 2019 TIME: 5:16 PM PAGER/CONTACT #: Mela [facility] ANES PREOPon 08-27-2019 ANES PREOP HNO ID: [id number] Author: Jesse Jimenez Service: Anesthesiology Author Type: [...] infusion 100 mL/hr INTRAVENOUS CONTINUOUS Tom (Res) Abdoulayeling, DO 100 mL/hr at 08/27/19 0024 100 [...] DAILY Jennifer (Res) Horattas 40 mg at 08/26/192112 - [MAR Hold due to Transfer] lisinopril [...] SIGNATURE: Jesse Jimenez MD PATIENT NAME: Elizabeth Mdoi DATE: August 27, 2019 TIME: 11:00 AM CSN: [id number] [facility] BRIEF OP NOTon 08-27-2019 BRIEF OP NOT HNO ID: [id number] Author: Tom Prescott DO Service: General Surgery [...] BRIEF OPERATIVE / PROCEDURE NOTE LOG ID: [id number] SURGERY/PROCEDURE DATE: 08/27/2019 INCISION/PROCEDURE START TIME: 10:01 AM INCISION CLOSE/PROCEDURE END TIME: 10:55 AM SURGEON(S)/PROCEDURALI ST(S) AND STAIN APPLICATOR(S): Surgeon(s) and Role: * Jovanny Parmar - Primary * Tom Prescott DO - Resident - Assisting Extension Supervisor: Lori Schmid SA SURGERY/PROCEDURE(S): Diagnostic bilatera lower extremity angiogram ANESTHESIA: Monitored Anesthesia Care FINDINGS: 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 ESTIMATED BLOOD LOSS: 5 mls SPECIMENS: None COMPLICATIONS: None PRE-OP/PRE-PROCEDURE DIAGNOSIS: Right lower extremity ischemia, wet gangreen POST-OP/POST-PROCEDURE DIAGNOSIS: Same as Preop SIGNATURE: Tom Prescott DO PATIENT NAME: Elizabeth Modi DATE: August 27, 2019 TIME: 11:08 AM PAGER/CONTACT #: [facility] CONSULTon 08-27-2019 CONSULT HNO ID: [id number] Author: Gold Sullivan Service: Cardiovascular Medicine Author [...] 27, 2019 TIME: 3:27 PM PAGER/CONTACT #: [phone] [facility] CONSULT PROGon 08-27-2019 CONSULT PROG HNO ID: [id number] Author: Doris Eden Service: Endocrinology Author Type: Physician Type: Consult Progress Note Filed: 08/27/2019 8:02 AM Note Text: ENDOCRINOLOGY CONSULT PROGRESS NOTE SERVICE DATE: 08/27/2019 SERVICE TIME: 7:50 AM Subjective INTERVAL HPI: Pt followed for diabetes mellitus type 2 with complications. Tr from [place]; adm for right foot infection and gangrene; [...] August 27, 2019 TIME: 8:02 AM PAGER: [phone] Normal [facility] IR ABDOMEN ANGIO W/ RUNOFFon 08-27-2019 IR ABDOMEN ANGIO W/ RUNOFF * * *Final Report* * * DATE OF EXAM: Aug 27 2019 11:22AM [facility] 0993 - IR ABDOMEN ANGIO W/ [...] Left reconstitution at the above-knee popliteal artery. Ironing Pleater: PSCEmily Transcribe Date/Time: Aug 29 2019 1:09P Dictated by : JOVANNY PARMAR MD This examination was interpreted and the report reviewed and electronically signed by: JOVANNY PARMAR MD on Aug 29 2019 1:12PM EST Normal [facility] NUTRITIONon 08-27-2019 NUTRITION HNO ID: [id number] Author: Carine Singh Service: Nutrition Therapy Author Type: Registered Dietitian Type: Nutrition Filed: 08/27/2019 3:14 PM Note Text: NUTRITION THERAPY PROGRESS NOTE SERVICE DATE: 08/27/2019 SERVICE TIME: 2:20 PM Nutrition Assessment: Recommended Malnutrition Diagnosis: Moderate Protein-Calorie Malnutrition (08/22/19 1436 : Keturah (Sanitation Worker) Valery) Estimated kilocalorie needs: 7972-1760 Calorie Calculation Method: 30-35 kcals/kg Estimated protein [...] Current Diet: DIET HEART HEALTHY SIGNATURE: Carine Singh, ,RD,LD PATIENT NAME: Elizabeth Modi DATE: August 27, 2019 TIME: 2:20 PM PAGER: [phone] Normal [facility] PROGRESSon 08-27-2019 PROGRESS HNO ID: [id number] Author: Tom Prescott DO Service: General Surgery [...] 0659 08/27/19 07 - 08/28/19 0659 Shift 9185-2124 1916-1056 6452-6652 24 Hour Total 0391-7465 6942-5879 5222-2381 24 Hour Total INTAKE PO 30 30 [...] 2174 if on RNF. Normal [facility] PROGRESS HNO ID: [id number] Author: Sue Bianchi Service: Hospital Medicine Author Type: Physician Type: Progress Notes Filed: 08/27/2019 7:27 AM Note Text: DEPARTMENT OF HOSPITAL MEDICINE PROGRESS NOTE SERVICE DATE: 08/27/2019 SERVICE TIME: 7:24 AM Hospital Medicine/Primary Attending: Sue Bianchi DO NIGHT AND WEEKEND COVERAGE: After 7pm, please call cross cover pager #[phone] Subjective INTERVAL HPI: Patient seen and examined. [...] bowel sounds normally heard, no mass palpable CHECK EMBOSSER- cranial nerves 2 to 12 grossly intact, [...] 08/21/191914 vte non-pharmacologic prophylaxis - none indicated (ny,vt) 08/21/191914 activity - mobilize patient (ny,[place]) VTE Prophylaxis: VTE prophylaxis appropriate Disposition: Home with [facility] Plan of care discussed with: Provider, RN, Patient SIGNATURE: Sue Bianchi DO PATIENT NAME: Elizabeth Modi DATE: August 27, 2019 TIME:7:24 AM PAGER/CONTACT #: [phone] Normal [facility] THERAPY NTon 08-27-2019 THERAPY NT HNO ID: [id number] Author: Tanja (Pt) Hoda Service: Physical Therapy Author Type: Physical Therapist Type: Therapy (PT/OT/Speech/Resp) Filed: 08/27/2019 9:33 AM Note Text: PHYSICAL THERAPY MISSED VISIT SERVICE DATE: 08/27/2019 SERVICE TIME: 931 to 931 ROOM: AK-OR Attempted Treatment. Patient not seen due to Test/Procedure(at angiogram). Will follow. SIGNATURE: Tanja Drummond PT PATIENT NAME: Elizabeth Modi DATE: August 27, 2019 TIME: 9:33 AM Normal [facility] THERAPY NT HNO ID: [id number] Author: Maricarmen SantiagoOtr/LSmitha Good Service: Occupational Therapy Author Type: Occupational Therapist Type: Therapy (PT/OT/Speech/Resp) Filed: 08/27/2019 9:12 AM Note Text: OCCUPATIONAL THERAPY MISSED VISIT SERVICE DATE: 08/27/2019 SERVICE TIME: 910 to 910 ROOM: AK-OR (S) Attempted Treatment. Patient not seen due to Surgery. Will follow and reassess post op. SIGNATURE: NADIR Hopper/Serene PATIENT NAME: Elizabeth Modi DATE: August 27, 2019 TIME: 9:12 AM Normal [facility] Basic Panelon 08-26-2019 Creatinine [Mass/Vol] 0.86 mg/dL Normal 0.67-1.17 [facility] Comment on above: Result Comment: Use of this assay is not recommended for patients undergoing treatment with phenindione, due to the potential for falsely depressed results. Performed By: #### P 8 #### [place] [address] Anion gap [Moles/Vol] 12 mmol/L Normal 8-16 [facility] Comment on above: Performed By: #### P 8 #### [address] [address] CO2 [Moles/Vol] 25 mmol/L Normal 21-32 [facility] Comment on above: Performed By: #### P 8 #### [facility] [address] [place], [place] [address] Urea nitrogen [Mass/Vol] 18 mg/dL Normal 7-18 [facility] Comment on above: Performed By: #### P 8 #### [facility] [address] [place], [place] [address] Calcium [Mass/Vol] 7.8 mg/dL Low 8.5-10.1 [facility] Comment on above: Performed By: #### P 8 #### [facility] [address] [place], [place] [address] Glucose [Mass/Vol] 114 mg/dL High 70-99 [facility] Comment on above: Performed By: #### P 8 #### [facility] [address] [place] [address] Chloride [Moles/Vol] 104 mmol/L Normal 98-107 [facility] Comment on above: Performed By: #### P 8 #### [facility] [address] [place], [place] [address] Potassium [Moles/Vol] 3.8 mmol/L Normal 3.5-5.1 [facility] Comment on above: Performed By: #### P 8 #### [facility] [address] [place] [address] Sodium [Moles/Vol] 137 mmol/L Normal 136-145 [facility] Comment on above: Performed By: #### P 8 #### [facility] [address] [place], [place] [address] CASE MANAGEMon 08-26-2019 CASE MANAGEM HNO ID: [id number] Author: Christina Perez Service: Care Management Author Type: ? Type: Care Mgt Progress Note Filed: 08/26/2019 10:50 AM Note Text: CARE MANAGEMENT PROGRESS NOTE SERVICE DATE: 08/26/2019 SERVICE TIME: 1000 LOS: 5 days IMM Follow Up Copy Given: Yes Copy given to:: Patient Method: In Person SIGNATURE: Christina Perez PATIENT NAME: Elizabeth Modi DATE: August 26, 2019 TIME: 10:50 AM PAGER/CONTACT #: [phone] Normal [facility] CASE MANAGEM HNO ID: [id number] Author: Tami (Rn) YURI Patricio Service: Care Management Author Type: Registered Nurse Type: Care Mgt Progress Note Filed: 08/26/2019 10:17 AM Note Text: CARE MANAGEMENT PROGRESS NOTE SERVICE DATE: 08/26/2019 SERVICE TIME: 10:15 AM LOS: 5 days Chart reviewed. Plan now is for arteriogram likely next week and then possibly bka v aka pending results. Vascular and Ortho follow. Referral to [facility] for AR. Will follow clinical progress. SIGNATURE: Tami Patricio RN PATIENT NAME: Elizabeth Modi DATE: August 26, 2019 TIME: 10:15 AM PAGER/CONTACT #: [phone] [facility] CONSULT PROGon 08-26-2019 CONSULT PROG HNO ID: [id number] Author: Doris Eden Service: Endocrinology Author Type: Physician Type: Consult Progress Note Filed: 08/26/2019 8:09 AM Note Text: ENDOCRINOLOGY CONSULT PROGRESS NOTE SERVICE DATE: 08/26/2019 SERVICE TIME: 8:00 AM Subjective INTERVAL HPI: Pt followed for diabetes mellitus type 2 with complications. Tr from [place]; adm for right foot infection and gangrene; [...] qac tid on 3 pm. BS high last night; pt did [...] 2019 TIME: 8:09 AM PAGER: [phone] Normal [facility] Hemogram/Diffon 08-26-2019 Abs Immature Grans 0.20 thou/cmm High 0.00-0.05 [facility] Comment on above: Performed By: #### M AG #### [place] [address] Abs Neut (ANC) 6.48 thou/cmm High 1.78-5.38 [facility] Comment on above: Performed By: #### M AG #### [place] [address] Abs. Baso 0.04 thou/cmm Normal 0.01-0.08 [facility] Comment on above: Performed By: #### M AG #### [place] [address] Abs. Braxton 0.93 thou/cmm High 0.30-0.82 [facility] Comment on above: Performed By: #### M AG #### [place] [address] Basophils/100 WBC (Bld) 0.4 % Normal [facility] Comment on above: Performed By: #### M AG #### [place] [address] Eosinophils (Bld) [#/Vol] 0.21 thou/cmm Normal 0.04-0. 54 [facility] Comment on above: Performed By: #### M AG #### [facility] [address] [place], [place] [address] Eosinophils/100 WBC (Bld) 2.1 % Normal [facility] Comment on above: Performed By: #### M AG #### [facility] [address] [place] [address] Erythrocyte distribution width (RBC) [Ratio] 13.3 % Normal 11.6-14.4 [facility] Comment on above: Performed By: #### M AG #### [place] [address] Hematocrit (Bld) [Volume fraction] 32.3 % Low 40.1-51.0 [facility] Comment on above: Performed By: #### M AG #### [place] [address] Hemoglobin (Bld) [Mass/Vol] 10.5 g/dL Low 13.7-17.5 [facility] Comment on above: Performed By: #### M AG #### [place] [address] Immature Grans 2.00 % Normal [facility] Comment on above: Performed By: #### M AG #### [place] [address] Lymphocytes (Bld) [#/Vol] 2.34 thou/cmm Normal 0.84-2. 85 [facility] Comment on above: Performed By: #### M AG #### [address] [address] Lymphocytes/100 WBC (Bld) 22.9 % Normal [facility] Comment on above: Performed By: #### M AG #### [place] [address] MCH (RBC) [Entitic mass] 28.6 pg Normal 25.7-32.2 [facility] Comment on above: Performed By: #### M AG #### [place] [address] MCHC (RBC) [Mass/Vol] 32.5 % Normal 32.3-36.5 [facility] Comment on above: Performed By: #### M AG #### [facility] [address] [place], [place] [address] MCV (RBC) [Entitic vol] 88.0 fL Normal 83.2-95.6 [facility] Comment on above: Performed By: #### M AG #### [facility] [address] [place], [place] [address] Monocytes/100 WBC (Bld) 9.1 % Normal [facility] Comment on above: Performed By: #### M AG #### [facility] [address] [place], [place] [address] Platelet mean volume (Bld) [Entitic vol] 9.5 fL Normal 8.7-12.0 [facility] Comment on above: Performed By: #### M AG #### [place] [address] Platelets (Bld) [#/Vol] 474 thou/cmm High 141-365 [facility] Comment on above: Performed By: #### M AG #### [address] [address] RBC (Bld) [#/Vol] 3.67 mil/cmm Low 4.63-6.08 [facility] Comment on above: Performed By: #### M AG #### [address] [address] RDW SD 43.1 fl Normal 36.1-45.8 [facility] Comment on above: Performed By: #### M AG #### [facility] [address] [place], [place] [address] Seg Neutrophil 63.5 % Normal [facility] Comment on above: Performed By: #### M AG #### [facility] [address] [place], [place] [address] WBC (Bld) [#/Vol] 10.21 thou/cmm High 4.23-9.07 [facility] Comment on above: Performed By: #### M AG #### [place] [address] PROGRESSon 08-26-2019 PROGRESS HNO ID: [id number] Author: Sue Bianchi Service: Hospital Medicine Author Type: Physician Type: Progress Notes Filed: 08/26/2019 1:35 PM Note Text: DEPARTMENT OF HOSPITAL MEDICINE PROGRESS NOTE SERVICE DATE: 08/26/2019 SERVICE TIME: 1:34 PM Hospital Medicine/Primary Attending: Sue Bianchi, DO NIGHT AND WEEKEND COVERAGE: After 7pm, please call cross cover pager #[phone] Subjective INTERVAL HPI: Patient seen and examined. [...] bowel sounds normally heard, no mass palpable CHECK EMBOSSER- cranial nerves 2 to 12 grossly intact, no focal motor or sensory deficits noted, speech normal Psych- A ANDO x 3, mood normal Skin- R lower extremity dressing intact, wound care notes and images reviewed Lines, Drains, and Airways Line Peripheral 08/21/19 9219 Assessment Left Antecubital 20 Gauge 4 days [...] 08/21/191914 vte non-pharmacologic prophylaxis - none indicated ([place]) 08/21/191914 activity - mobilize patient ([place]) VTE Prophylaxis: VTE prophylaxis appropriate Disposition: Home with [facility] Plan of care discussed with: Provider, RN, Patient SIGNATURE: Sue Bianchi DO PATIENT NAME: Elizabeth Modi DATE: August 26, 2019 TIME:1:34 PM PAGER/CONTACT #: [phone] [facility] PROGRESS HNO ID: [id number] Author: Tom Prescott DO Service: General Surgery [...] questions or concerns Mon-Fri 6a-5p please page [phone]. After 5pm and on Weekends and Holidays, [...] 2174 if on RNF. Normal [facility] THERAPY NTon 08-26-2019 THERAPY NT HNO ID: [id number] Author: Maricarmen Babb/Vickie Good Service: Occupational Therapy Author Type: Occupational Therapist Type: Therapy (PT/OT/Speech/Resp) Filed: 08/26/2019 11:15 AM Note Text: Occupational Therapy Treatment SERVICE DATE: 08/26/2019 SERVICE TIME: 919 to 944 ROOM: [id number]- Recommended Discharge Disposition: Acute Rehab Justification For [...] (ADL);General symptoms and signs-other Interventions Provided: Self Longterm Management (97794);Therapeutic Exercise (21859) Therapeutic Exercise (62197) Treatment Minutes: 10 1 unit Skilled Intervention(s): [...] to patient shrugging shoulders during activity. Self Longterm Management (02460) Treatment Minutes: 15 1 unit Skilled Intervention(s): [...] were noted Reason for Occupational Therapy Consult: CAPACITY MANAGEMENT SPECIALIST Relevant Past Medical History: thyroid, HTN, DM, claudication Patient Report: Patient IDx2. Pt reported no pain and was agreeable to therapy. 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: real time trader Entry To Home: Stairs;With Rail Number Of [...] complete details for this therapy evaluation/treatment. SIGNATURE: Ifrah Patrick, Judson/OT PATIENT NAME: Elizabeth Modi DATE: August 26, 2019 TIME: 9:56 AM I reviewed and agree with the documentation corresponding to this therapy visit. SIGNATURE: Maricarmen Good OTR/L DATE: August 26, 2019 TIME: 11:15 AM Evaluation and/or treatment directly supervised by licensed Occupational Therapist. [facility] CONSULT PROGon 08-25-2019 CONSULT PROG HNO ID: [id number] Author: Doris Eden Service: Endocrinology Author Type: Physician Type: Consult Progress Note Filed: 08/25/2019 9:29 AM Note Text: ENDOCRINOLOGY CONSULT PROGRESS NOTE SERVICE DATE: 08/25/2019 SERVICE TIME: 9:10 AM Subjective INTERVAL HPI: Pt followed for diabetes mellitus type 2 with complications. 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 Pt tolerated well with no pain. Stump with blood clots and vitalized tissue. No evidence of infection. Francine Roberts MD General Surgery, PGY-3 August 25, 2019 8:11 AM Normal [facility] PROGRESSon 08-25-2019 PROGRESS HNO ID: [id number] Author: Sue Bianchi Service: Hospital Medicine Author Type: Physician Type: Progress Notes Filed: 08/25/2019 4:34 PM Note Text: DEPARTMENT OF HOSPITAL MEDICINE PROGRESS NOTE SERVICE DATE: 08/25/2019 SERVICE TIME: 1:10 PM Hospital Medicine/Primary Attending: Sue Bianchi, DO NIGHT AND WEEKEND COVERAGE: After 7pm, please call cross cover pager #[phone] Subjective INTERVAL HPI: Patient seen and examined. [...] bowel sounds normally heard, no mass palpable CHECK EMBOSSER- cranial nerves 2 to 12 grossly intact, [...] 08/21/191914 vte non-pharmacologic prophylaxis - none indicated (ny,vt) 08/21/191914 activity - mobilize patient ([place], [place]) VTE Prophylaxis: VTE prophylaxis appropriate Disposition: Home with [facility] Plan of care discussed with: Provider, RN, Patient SIGNATURE: Sue Bianchi DO PATIENT NAME: Elizabeth Modi DATE: August 25, 2019 TIME:1:10 PM PAGER/CONTACT #: [phone] [facility] PROGRESS HNO ID: [id number] Author: Francine Roberts Service: General Surgery Author [...] questions or concerns Mon-Fri 6a-5p please page [phone]. After 5pm and on Weekends and Holidays, please page [phone] if in ICU or [phone] if on RNF. Subjective SUBJECTIVE: Denies leg [...] Date 08/24/19 07 - 08/25/19 0659 08/25/19 0700 - 08/26/19 0659 Shift 1732-1292 [phone] 0051-1629 24 Hour Total 5174-8573 8432-3224 1835-4217 24 Hour Total INTAKE Shift Total OUTPUT [...] 2174 if on RNF. Normal [facility] Basic Panelon 08-24-2019 Creatinine [Mass/Vol] 0.76 mg/dL Normal 0.67-1.17 [facility] Comment on above: Result Comment: Use of this assay is not recommended for patients undergoing treatment with phenindione, due to the potential for falsely depressed results. Performed By: #### G LMET #### [facility] [address] [place], [place] [address] Anion gap [Moles/Vol] 10 mmol/L Normal 8-16 [facility] Comment on above: Performed By: #### G LMET #### [address] [address] CO2 [Moles/Vol] 20 mmol/L Low 21-32 [facility] Comment on above: Performed By: #### G LMET #### [facility] [address] [place], [place] [address] Glucose [Mass/Vol] 107 mg/dL High 70-99 [facility] Comment on above: Performed By: #### G LMET #### [address] [address] Urea nitrogen [Mass/Vol] 12 mg/dL Normal 7-18 [facility] Comment on above: Performed By: #### G LMET #### [address] [address] Calcium [Mass/Vol] 7.9 mg/dL Low 8.5-10.1 [facility] Comment on above: Performed By: #### G LMET #### [facility] [address] [place], [place] [address] Chloride [Moles/Vol] 105 mmol/L Normal 98-107 [facility] Comment on above: Performed By: #### G LMET #### [address] [address] Potassium [Moles/Vol] 4.4 mmol/L Normal 3.5-5.1 [facility] Comment on above: Performed By: #### G LMET #### [facility] [address] [place], [place] [address] Sodium [Moles/Vol] 131 mmol/L Low 136-145 [facility] Comment on above: Performed By: #### G LMET #### [facility] [address] [place], [place] [address] CONSULT PROGon 08-24-2019 CONSULT PROG HNO ID: [id number] Author: Hermila Gallegos Service: Endocrinology Author Type: [...] August 24, 2019 TIME: 3:12 PM PAGER: [phone] Normal [facility] CONSULT PROG HNO ID: [id number] Author: Martha Ryan (Pharmacist) Service: Pharmacy Author [...] pharmacy if questions. MARTHA RYAN, PHARMACIST Ext: [phone] Normal [facility] Hemogram/Diffon 08-24-2019 Abs Immature Grans 0.19 thou/cmm High 0.00-0.05 [facility] Comment on above: Performed By: #### M AG #### [place] [address] Abs Neut (ANC) 6.15 thou/cmm High 1.78-5.38 [facility] Comment on above: Performed By: #### M AG #### [place] [address] Abs. Baso 0.04 thou/cmm Normal 0.01-0.08 [facility] Comment on above: Result Comment: Smea r scanned; tech agrees with automated differential Performed By: #### M AG #### [place] [address] Abs. Braxton 0.75 thou/cmm Normal 0.30-0.82 [facility] Comment on above: Performed By: #### M AG #### [place] [address] Basophils/100 WBC (Bld) 0.4 % Normal A [facility] [place] Comment on above: Performed By: #### M AG #### [place] [address] Eosinophils (Bld) [#/Vol] 0.20 thou/cmm Normal 0.04-0. 54 [facility] Comment on above: Performed By: #### M AG #### [facility] [address] [place], [place] [address] Eosinophils/100 WBC (Bld) 2.2 % Normal [facility] Comment on above: Performed By: #### M AG #### [facility] [address] [place], [place] [address] Immature Grans 2.10 % Normal [facility] Comment on above: Performed By: #### M AG #### [facility] [address] [place], [place] [address] Lymphocytes (Bld) [#/Vol] 1.86 thou/cmm Normal 0.84-2. 85 [facility] Comment on above: Performed By: #### M AG #### [facility] [address] [place], [place] [address] Lymphocytes/100 WBC (Bld) 20.2 % Normal [facility] Comment on above: Performed By: #### M AG #### [facility] [address] [place], [place] [address] Monocytes/100 WBC (Bld) 8.2 % Normal [facility] Comment on above: Performed By: #### M AG #### [facility] [address] [place], [place] [address] Seg Neutrophil 66.9 % Normal [facility] Comment on above: Performed By: #### M AG #### [facility] [address] [place], [place] [address] Erythrocyte distribution width (RBC) [Ratio] 13.3 % Normal 11.6-14.4 [facility] Comment on above: Performed By: #### M AG #### [facility] [address] [place], [place] [address] Hematocrit (Bld) [Volume fraction] 36.9 % Low 40.1-51.0 [facility] Comment on above: Performed By: #### M AG #### [facility] [address] [place], [place] [address] Hemoglobin (Bld) [Mass/Vol] 11.7 g/dL Low 13.7-17.5 [facility] Comment on above: Performed By: #### M AG #### [facility] [address] [place] [address] MCH (RBC) [Entitic mass] 28.1 pg Normal 25.7-32.2 [facility] Comment on above: Performed By: #### M AG #### [facility] [address] [place] [address] MCHC (RBC) [Mass/Vol] 31.7 % Low 32.3-36.5 [facility] Comment on above: Performed By: #### M AG #### [facility] [address] [place] [address] MCV (RBC) [Entitic vol] 88.7 fL Normal 83.2-95.6 [facility] Comment on above: Performed By: #### M AG #### [facility] [address] [place] [address] Platelet mean volume (Bld) [Entitic vol] 9.5 fL Normal 8.7-12.0 [facility] Comment on above: Performed By: #### M AG #### [facility] [address] [place] [address] Platelets (Bld) [#/Vol] 428 thou/cmm High 141-365 [facility] Comment on above: Performed By: #### M AG #### [place] [address] RBC (Bld) [#/Vol] 4.16 mil/cmm Low 4.63-6.08 [facility] Comment on above: Performed By: #### M AG #### [facility] [address] [place] [address] RDW SD 43.4 fl Normal 36.1-45.8 [facility] Comment on above: Performed By: #### M AG #### [facility] [address] [place] [address] WBC (Bld) [#/Vol] 9.20 thou/cmm High 4.23-9.07 [facility] Comment on above: Performed By: #### M AG #### [facility] [address] [place], [place] [address] Magnesium Bloodon 08-24-2019 Magnesium [Mass/Vol] 2.4 mg/dL Normal 1.6-2.6 [facility] Comment on above: Performed By: #### M AG #### [facility] [address] [place], [place] [address] PROGRESSon 08-24-2019 PROGRESS HNO ID: [id number] Author: Sue Bianchi Service: Hospital Medicine Author Type: Physician Type: Progress Notes Filed: 08/24/2019 5:16 PM Note Text: DEPARTMENT OF HOSPITAL MEDICINE PROGRESS NOTE SERVICE DATE: 08/24/2019 SERVICE TIME: 12:40 PM Hospital Medicine/Primary Attending: Sue Bianchi, DO NIGHT AND WEEKEND COVERAGE: After 7pm, please call cross cover pager #[phone] Subjective INTERVAL HPI: Patient seen and examined. [...] bowel sounds normally heard, no mass palpable CHECK EMBOSSER- cranial nerves 2 to 12 grossly intact, [...] 08/21/191914 vte non-pharmacologic prophylaxis - none indicated (ny,vt) 08/21/191914 activity - mobilize patient ([place], [place]) VTE Prophylaxis: VTE prophylaxis appropriate Disposition: Home with [facility] Plan of care discussed with: Provider, RN, Patient SIGNATURE: Sue Bianchi DO PATIENT NAME: Elizabeth Modi DATE: August 24, 2019 TIME:12:40 PM PAGER/CONTACT #: [phone] [facility] PROGRESS HNO ID: [id number] Author: Edy Paredes Service: Infectious Disease Author Type: Physician Type: Progress Notes Filed: 08/24/2019 9:20 AM Note Text: Edy Paredes MD, MS, FACP, [facility] Division of Infectious Diseses [address] [facility] [address] [place] [address] Office: [phone] INFECTIOUS DISEASE CONSULT PROGRESS NOTE SERVICE DATE: [...] off. SIGNATURE: Edy Paredes MD, MS, FACP, [facility] PATIENT NAME: Elizabeth Modi DATE: August 24, 2019 TIME: 9:16 AM PAGER/CONTACT #: [phone] [facility] PROGRESS HNO ID: [id number] Author: Francine Roberts Service: Vascular Surgery Author [...] questions or concerns Mon-Fri 6a-5p please page [phone]. After 5pm and on Weekends and Holidays, please page [phone] if in ICU or [phone] if on RNF. Subjective SUBJECTIVE: Denies leg [...] 0659 08/24/19 07 - 08/25/19 0659 Shift 3410-6026 9936-4965 1838-5419 24 Hour Total 3654-8563 5154-2666 8807-6706 24 Hour Total INTAKE IV 625 625 OR Crystalloid intake (mL) 250 250 Volume (mL) (lactated ringers infusion) 125 125 Volume (mL) (vancomycin iv piggyback 1.25 g in D5W 250 mL (VANCOCIN)) 250 250 Shift Total 625 625 OUTPUT Urine 536 601 8710 Void (ml) 048 435 9260 Blood 50 50 Estimated Blood loss 50 50 Shift Total 983 140 5801 Weight (kg) 85 85 85 85 85 [...] 3 g in NaCl 0.9% 100 mL MB+/ADD-[place] (UNASYN) 3 g INTRAVENOUS q 6 H [...] foot. 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 Normal [facility] Phosphorus Bloodon 0 Phosphate [Mass/Vol] 2.3 mg/dL Low 2.5-4.9 [facility] Comment on above: Performed By: #### G LMET #### [facility] [address] [place] [address] THERAPY NTon 08-24-2019 THERAPY NT HNO ID: [id number] Author: Lizeth Cobos Service: Physical Therapy Author Type: Physical Therapist Type: Therapy (PT/OT/Speech/Resp) Filed: 08/24/2019 2:49 PM Note Text: Physical Therapy Evaluation SERVICE DATE: 08/24/2019 SERVICE TIME: 1325 to 1346 ROOM: [id number] Recommended Discharge Disposition: Acute Rehab Recommended Discharge [...] Weakness (generalized) Interventions Provided: Evaluation $ Evaluation-Low (91009) Billed Units: 1 unit History and examination [...] Lives With: Self/Alone Assistance Available: real time trader Entry To Home: Stairs;With Rail Number Of [...] 2019 TIME: 2:43 PM Normal [facility] THERAPY NT HNO ID: [id number] Author: Susan Ochoar/Vickie Miner Service: Occupational Therapy Author Type: Occupational Therapist Type: Therapy (PT/OT/Speech/Resp) Filed: 08/24/2019 1:07 PM Note Text: Occupational Therapy Evaluation SERVICE DATE: 08/24/2019 SERVICE TIME: 1133 to 1208 ROOM: [place] [address] Recommended Discharge Disposition: Acute Rehab Justification For [...] (ADL);General symptoms and signs-other Interventions Provided: Evaluation;Self Longterm Management (70062) $ Evaluation-Moderate (10928) Billed Units: 1 unit OT Evaluation Moderate [...] occupational performance: thyroid, HTN, DM, claudication Self Longterm Management (49703) Treatment Minutes: 10 1 unit Skilled Intervention(s): [...] 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 Plan for possible surgery Friday 08/25 for wound closure/further cut down of right lower extremity. Reason for Occupational Therapy Consult: CAPACITY MANAGEMENT SPECIALIST Relevant Past Medical History: thyroid, HTN, DM, claudication Patient Report: Patient supine in bed upon entry of therapy. Patient agreeable to therapy. I have no pain at all." Denies pain before/after transfers. 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: real time trader(dtr) Entry To Home: Stairs;With Rail(bilat rails) Number [...] DATE: August 24, 2019 TIME: 1:01 PM [facility] ANES [place] 08-23-2019 ANES POST HNO ID: [id number] Author: Sj Huizar Service: Anesthesiology Author Type: [...] 2019 TIME: 11:24 AM PAGER/CONTACT #: [phone] [facility] ANES PREOPon 08-23-2019 ANES PREOP HNO ID: [id number] Author: Sj Huizar Service: Anesthesiology Author Type: [...] Units SUBCUTANEOUS q 12 H Mohammad F Mu-Ism 5,000 Units at 08/22/19 0807 - [MAR Hold due to Transfer] aluminum-magnesium hydroxide-simethicone 200-200-20 mg/5 mL 30 mL (MAALOX,MYLANTA,MAG-AL PLUS) 30 mL ORAL DAILY PRN Mohammad F Mu-Ism - [MAR Hold due to Transfer] ondansetron 4 mg tab(s) (ZOFRAN) 4 mg ORAL q 6 H PRN Mohammad F Mu-Ism Or - [MAR Hold due to Transfer] ondansetron (PF) 4 mg injection (ZOFRAN) 4 mg INTRAVENOUS q 6 H PRN Mohammad F Mu-Ism - [MAR Hold due to Transfer] polyethylene glycol 3350 17 g packet (MIRALAX, GLYCOLAX) 17 g ORAL DAILY PRN Mohammad F Mu-Ism - [MAR Hold due to Transfer] docusate sodium 100 mg cap(s) (COLACE) 100 mg ORAL BID PRN Mohammad F Mu-Ism - [MAR Hold due to Transfer] magnesium hydroxide 400 mg/5 mL 30 mL (MOM) 30 mL ORAL DAILY PRN Mohammad F Mu-Ism - [MAR Hold due to Transfer] bisacodyl 10 mg suppository (DULCOLAX) 10 mg RECTAL DAILY PRN Mohammad F Mu-Ism - [MAR Hold due to Transfer] acetaminophen 650 mg tab(s) (TYLENOL) 650 mg ORAL q 6 H PRN Mohammad F Mu-Ism - [MAR Hold due to Transfer] atorvastatin 40 mg tab(s) (LIPITOR) 40 mg ORAL DAILY Mohammad F Mu-Ism 40 mg at 08/22/192009 - [MAR Hold due to Transfer] lisinopril 10 mg tab(s) (ZESTRIL, PRINIVIL) 10 mg ORAL DAILY Mohammad F Mu-Ism 10 mg at 08/22/19 0807 - [MAR Hold due to Transfer] levothyroxine 25 mcg tab(s) (SYNTHROID) 25 mcg ORAL DAILY Mohammad F Mu-Ism 25 mcg at 08/22/19 0600 - [MAR Hold due to Transfer] insulin lispro pen (rapid acting) (HumaLOG KWIKPEN) SUBCUTANEOUS w MEALS AND HS Mohammad F Mu-Ism 1 Units at 08/22/192128 - [MAR Hold due to Transfer] dextrose 40 % 15 g 15 g ORAL PRN Mohammad F Mu-Ism Or - [MAR Hold due to Transfer] glucagon 1 mg injection (GLUCAGEN) 1 mg INTRAMUSCULAR PRN Mohammad F Mu-Ism Or - [MAR Hold due to Transfer] dextrose 50% in water 25 mL syringe 12.5 g INTRAVENOUS PRN Mohammad F Mu-Ism - [MAR Hold due to Transfer] vancomycin iv piggyback 1.25 g in D5W 250 mL (VANCOCIN) 1.25 g INTRAVENOUS q 12 HR Mohammad F Mu-Ism 250 mL/hr at 08/22/192009 1.25 g at 08/22/192009 - [MAR Hold due to Transfer] vancomycin dosing and monitoring per pharmacy OTHER As Directed Mohammad F Mu-Ism - [MAR Hold due to Transfer] piperacillin-tazobacta m iv piggyback 3.375 g in dextrose (iso-osmotic) 50 mL (ZOSYN) 3.375 g INTRAVENOUS q 6 H Mohammad F Mu-Ism 100 mL/hr at 08/23/19 0549 3.375 g at 08/23/19 0549 - [MAR Hold due to Transfer] clindamycin iv piggyback 600 mg in D5W 50 mL (CLEOCIN) 600 mg INTRAVENOUS q 6 H Mohammad F Mu-Ism 100 mL/hr at 08/23/19 0549 600 mg [...] August 23, 2019 TIME: 8:32 AM CSN: [id number] [facility] BRIEF OP NOTon 08-23-2019 BRIEF OP NOT HNO ID: [id number] Author: Jennifer Crooks Service: General Surgery Author Type: Resident Type: Brief Op Note Filed: 08/23/2019 9:35 AM Note Text: Attestation signed by Gordo Figueroa at 08/23/2019 10:01 AM I was present for the entire procedure and performed the procedure with the assistance of the resident and the cardiovascular surgical tech BRIEF OP / PROCEDURE NOTE LOG ID: [id number] Surgery/Procedure Date: 08/23/2019 Incision/Procedure Start Time: 8:42 AM Incision Close/Procedure End Time: 9:04 AM Surgeon(s)/Procedurali st(s) and Medical Aides Teacher(s): Surgeon(s) and Role: * Gordo Figueroa - [...] 9:29 AM PAGER/CONTACT #: Normal [facility] Basic Panelon 08-23-2019 Creatinine [Mass/Vol] 0.88 mg/dL Normal 0.67-1.17 [facility] Comment on above: Result Comment: Use of this assay is not recommended for patients undergoing treatment with phenindione, due to the potential for falsely depressed results. Performed By: #### P 8 #### [address] [address] Glucose [Mass/Vol] 96 mg/dL Normal 70-99 [facility] Comment on above: Performed By: #### P 8 #### [address] [address] Anion gap [Moles/Vol] 12 mmol/L Normal 8-16 [facility] Comment on above: Performed By: #### P 8 #### [address] [address] Calcium [Mass/Vol] 7.2 mg/dL Low 8.5-10.1 [facility] Comment on above: Performed By: #### P 8 #### [address] [address] CO2 [Moles/Vol] 22 mmol/L Normal 21-32 [facility] Comment on above: Performed By: #### P 8 #### [address] [address] Urea nitrogen [Mass/Vol] 15 mg/dL Normal 7-18 [facility] Comment on above: Performed By: #### P 8 #### [facility] [address] [place], [place] [address] Chloride [Moles/Vol] 103 mmol/L Normal 98-107 [facility] Comment on above: Performed By: #### P 8 #### [facility] [address] [place], [place] [address] Potassium [Moles/Vol] 3.8 mmol/L Normal 3.5-5.1 [facility] Comment on above: Performed By: #### P 8 #### [facility] [address] [place], [place] [address] Sodium [Moles/Vol] 133 mmol/L Low 136-145 [facility] Comment on above: Performed By: #### P 8 #### [facility] [address] [place], [place] [address] CASE MGT INIT ASSESon 2019 CASE MGT INIT ASSES HNO ID: [id number] Author: Tami (Rn) YURI Patricoi Service: Care Management Author Type: Registered Nurse Type: Care Mgt Initial Assessment Filed: 08/23/2019 3:20 PM Note Text: CARE MANAGEMENT: ASSESSMENT AND DISCHARGE PLAN SERVICE DATE: August 23, 2019 SERVICE TIME: 3:18 PM PRIMARY CARE PHYSICIAN: No primary care provider on file. 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 Last discharge within 30 days: No Advance Directive: Current Advance Directive: None Apprentice/Lineman Attempted to Assist with AD Completion: Yes [...] Mostly I feel financially burdened by my oir-go-igdocx expenses for my prescription medication:: 0 - Agree Somewhat Risk Score: 0 Patient is categorized as: Low risk < 2 Are you interested in bedside delivery of your medications? No Is Patient Psychosocially Complex?: No ASSESSMENT AND PLAN: Medical Needs: Medical Needs: None Psychosocial Needs: Psychosocial Needs: None FREEDOM OF CHOICE EXPLAINED: [place] of Choice Given: Yes Level of Care Discussed: Inpatient Rehab Facility Financial Disclosure Provided: Yes Financial Disclosure Comments: ESR Provider List: (Pt refused list- would like [facility]. ) POTENTIAL TRANSITION PLANS Rehab Facility Spoke with pt at the bedside. 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 Pt states that he has a PCP in [place]. Pt is s/p right foot amp. Anticipate AR needs at d/c. Await PT/OT evals. Pt would like [facility] rehab- referral sent. Pt will need auth and likely transport at d/c. Will follow. SIGNATURE: Tami Patricio RN PATIENT NAME: Elizabeth Modi DATE: August 23, 2019 TIME: 3:18 PM PAGER/CONTACT #: [phone] [facility] CONSULTon 08-23-2019 CONSULT HNO ID: [id number] Author: Doris Eden Service: Endocrinology Author Type: Physician Type: Consults Filed: 08/23/2019 1:21 PM Note Text: I have reviewed the patient's medical record in detail. Consult note dictated. See orders for Lantus/oral agents. Can use OTC Novolin N at home. Doris Eden MD. [facility] CONSULT HNO ID: [id number] Author: Doris Eden Service: Endocrinology Author Type: Physician Type: Consults Filed: 08/25/2019 9:16 AM Note Text: [facility] - Consultation PATIENT NAME: ELIZABETH MODI CSN: [id number] DATE OF : 1940 SEX/AGE: M/79 PATIENT TYPE: I HOSP [facility]: [facility] LOCATION: [id number] DATE OF SERVICE: 08/23/2019 TIME OF SERVICE: 01:15 PM REFERRING PHYSICIAN: Dexter Chávez MD REASON FOR CONSULTATION: Uncontrolled diabetes. HISTORY OF PRESENT ILLNESS: The patient is a 79-year-old male, who was transferred from [facility] with gangrene off right foot toes. Patient [...] affording Lantus 10. Doris Eden MD Endocrinology SM:modl /[id number] [facility] CONSULT PROGon 08-23-2019 CONSULT PROG HNO ID: [id number] Author: Isac Navarro (Pharmacist) Service: Pharmacy Author [...] have any questions, [place] [phone]. Age: [age] year old Allergies: ALLERGIES No [...] (mg/L) Date/Time Value 08/23/2019 1830 22.0 ISAC NAVARRO PHARMACIST Normal [facility] CONSULT PROG HNO ID: [id number] Author: Paulo Landis Service: Infectious Disease Author [...] labs Paulo Landis MD Infectious Disease Respiratory [place] Pager: [phone] August 23, 2019 Normal [facility] Hemogram/Diffon 08-23-2019 Abs Immature Grans 0.19 thou/cmm High 0.00-0.05 [facility] Comment on above: Performed By: #### M AG #### [place] [address] Abs Neut (ANC) 15.52 thou/cmm High 1.78-5.38 [facility] Comment on above: Performed By: #### M AG #### [place] [address] Abs. Baso 0.04 thou/cmm Normal 0.01-0.08 [facility] Comment on above: Result Comment: Smea r scanned; tech agrees with automated differential Performed By: #### M AG #### [place] [address] Abs. Braxton 1.45 thou/cmm High 0.30-0.82 [facility] Comment on above: Performed By: #### M AG #### [place] [address] Basophils/100 WBC (Bld) 0.2 % Normal A [facility] Comment on above: Performed By: #### M AG #### [place] [address] Eosinophils (Bld) [#/Vol] 0.21 thou/cmm Normal 0.04-0. 54 [facility] Comment on above: Performed By: #### M AG #### [facility] [address] [place], [place] [address] Eosinophils/100 WBC (Bld) 1.1 % Normal [facility] Comment on above: Performed By: #### M AG #### [facility] [address] [place], [place] [address] Immature Grans 1.00 % Normal [facility] Comment on above: Performed By: #### M AG #### [facility] [address] [place], [place] [address] Lymphocytes (Bld) [#/Vol] 1.39 thou/cmm Normal 0.84-2. 85 [facility] Comment on above: Performed By: #### M AG #### [facility] [address] [place], [place] [address] Lymphocytes/100 WBC (Bld) 7.4 % Normal [facility] Comment on above: Performed By: #### M AG #### [facility] [address] [place], [place] [address] Monocytes/100 WBC (Bld) 7.7 % Normal [facility] Comment on above: Performed By: #### M AG #### [facility] [address] [place], [place] [address] Seg Neutrophil 82.6 % Normal [facility] Comment on above: Performed By: #### M AG #### [facility] [address] [place], [place] [address] Erythrocyte distribution width (RBC) [Ratio] 13.2 % Normal 11.6-14.4 [facility] Comment on above: Performed By: #### M AG #### [facility] [address] [place], [place] [address] Hematocrit (Bld) [Volume fraction] 31.0 % Low 40.1-51.0 [facility] Comment on above: Performed By: #### M AG #### [facility] [address] [place], [place] [address] Hemoglobin (Bld) [Mass/Vol] 10.2 g/dL Low 13.7-17.5 [facility] Comment on above: Performed By: #### M AG #### [facility] [address] [place] [address] MCH (RBC) [Entitic mass] 28.7 pg Normal 25.7-32.2 [facility] Comment on above: Performed By: #### M AG #### [facility] [address] [place] [address] MCHC (RBC) [Mass/Vol] 32.9 % Normal 32.3-36.5 [facility] Comment on above: Performed By: #### M AG #### [facility] [address] [place] [address] MCV (RBC) [Entitic vol] 87.1 fL Normal 83.2-95.6 [facility] Comment on above: Performed By: #### M AG #### [facility] [address] [place] [address] Platelet mean volume (Bld) [Entitic vol] 9.6 fL Normal 8.7-12.0 [facility] Comment on above: Performed By: #### M AG #### [facility] [address] [place] [address] Platelets (Bld) [#/Vol] 421 thou/cmm High 141-365 [facility] Comment on above: Performed By: #### M AG #### [facility] [address] [place] [address] RBC (Bld) [#/Vol] 3.56 mil/cmm Low 4.63-6.08 [facility] Comment on above: Performed By: #### M AG #### [facility] [address] [place] [address] RDW SD 42.0 fl Normal 36.1-45.8 [facility] Comment on above: Performed By: #### M AG #### [facility] [address] [place], [place] [address] WBC (Bld) [#/Vol] 18.79 thou/cmm High 4.23-9.07 [facility] Comment on above: Performed By: #### M AG #### [place] [address] Hgb A1con 08-23-2019 HbA1c (Bld) [Mass fraction] 9.8 % High 4.2-6.3 [facility] Comment on above: Result Comment: Meth od is National Glycohemoglobin Standardization Program (NGSP) compliant. Performed By: #### M AG #### [place] [address] HbA1c (Bld) [Mass fraction] 235 mg/dl Normal [facility] Comment on above: Performed By: #### M AG #### [place] [address] MRSA Screenon 08-23-2019 MRSA DNA ARIELLE+probe Ql (Unsp spec) Test performed at [facility] No MRSA detected. Normal [facility] Comment on above: Performed By: #### F ERR #### [place] [address] Magnesium Bloodon 08-23-2019 Magnesium [Mass/Vol] 0.9 mg/dL Critically low 1.6-2.6 [facility] Comment on above: Performed By: #### M AG #### [place] [address] NURSING PROGon 08-23-2019 NURSING PROG HNO ID: [id number] Author: Karl SantiagoRn) YURI Russell Service: Nursing Author Type: Registered Nurse Type: Nursing Progress Note Filed: 08/23/2019 9:27 AM Note Text: Fall risk protocol initiated. Fall risk wrist band applied and yellow sock applied to left foot. SR up x2. Call light in reach. Urinal offered. Normal [facility] NURSING PROG HNO ID: [id number] Author: Marita SantiagoRn) YURI Aponte Service: Nursing Author Type: Registered Nurse Type: Nursing Progress Note Filed: 08/23/2019 8:09 AM Note Text: Tech here to take pt to presurgery unit . Pt showing no signs of distress voicing no complaints. Pt taken via cart to presurgery unit Normal [facility] NURSING PROG HNO ID: [id number] Author: Marita SantiagoRn) YURI Aponte Service: Nursing Author Type: Registered Nurse Type: Nursing Progress Note Filed: 08/23/2019 8:07 AM Note Text: Report given to presurg RN. Daughter Margaret notified by phone that pt would be going to surgery soon. Daughter states she is"on her way". Daughter informed on phone that pt would probably be in surgery when she gets here. Daughter states ubderstanding Normal [facility] NURSING PROG HNO ID: [id number] Author: Marita Izquierdo) YURI Aponte Service: Nursing Author Type: Registered Nurse Type: Nursing Progress Note Filed: 08/23/2019 8:11 AM Note Text: Dr. Figueroa into see pt. Dr. Figueroa informing pt that surgery has been moved up to this morning. Pt states understanding. Normal [facility] OPERATIVE NOon 08-23-2019 OPERATIVE NO HNO ID: [id number] Author: Gordo Figueroa Service: Vascular Surgery Author Type: Physician Type: Operative Report Filed: 08/23/2019 1:07 PM Note Text: [facility] - Operative Report ELIZABETH MODI : 1940 AGE: 79. SEX: M PATIENT TYPE: I HOSP [facility]: [facility] LOCATION: [facility] ATTENDING PHYSICIAN: Ara Singer M.D. CSN NUMBER: [id number] DATE OF SURGERY/PROCEDURE: 08/23/2019 INCISION/PROCEDURE START TIME: 8:42 AM INCISION CLOSE/PROCEDURE END TIME: 9:04 AM PREOPERATIVE DIAGNOSIS: Gangrenous changes of the right foot with gas in the subcutaneous tissues. POSTOPERATIVE DIAGNOSIS: Gangrenous changes of the right foot with gas in the subcutaneous tissues. SURGEON: Godro Figueroa MD STAIN APPLICATOR: 1. Jennifer Crooks M.D. 2. Irvin Walker, cardiovascular surgical tech. SURGERY/PROCEDURE: Guillotine right above ankle/below-knee amputation. ANESTHESIA: [...] recovery area in stable condition. MD DESMOND Ley:[id number] /[id number] Normal [facility] PROGRESSon 08-23-2019 PROGRESS HNO ID: [id number] Author: Sue Bianchi Service: Hospital Medicine Author Type: Physician Type: Progress Notes Filed: 08/23/2019 3:48 PM Note Text: DEPARTMENT OF HOSPITAL MEDICINE PROGRESS NOTE SERVICE DATE: 08/23/2019 SERVICE TIME: 12:20 PM Hospital Medicine/Primary Attending: Sue Bianchi, DO NIGHT AND WEEKEND COVERAGE: After 7pm, please call cross cover pager #[phone] Subjective INTERVAL HPI: Patient seen and examined. [...] bowel sounds normally heard, no mass palpable CHECK EMBOSSER- cranial nerves 2 to 12 grossly intact, [...] 08/21/191914 vte non-pharmacologic prophylaxis - none indicated (ny,vt) 08/21/191914 activity - mobilize patient (ny,vt) VTE Prophylaxis: VTE prophylaxis appropriate Disposition: Home with [facility] Plan of care discussed with: Provider, RN, Patient SIGNATURE: Sue Bianchi DO PATIENT NAME: Elizabeth Modi DATE: August 23, 2019 TIME:12:20 PM PAGER/CONTACT #: [phone] [facility] PROGRESS HNO ID: [id number] Author: Tom Prescott DO Service: General Surgery [...] questions or concerns Mon-Fri 6a-5p please page [phone]. After 5pm and on Weekends and Holidays, [...] kg/m? O2 Therapy: Room Air IANDO: Date 08/22/19 07 - 08/23/19 0659 08/23/19699 - 08/24/19 0659 Shift 5810-6141 1388-1607 8409-1100 24 Hour Total 7292-6951 6384-9827 9535-9315 24 Hour Total INTAKE PO 240 240 PO 240 240 Shift Total 240 240 OUTPUT Urine 500 294 812 1489 Void (ml) 500 420 971 8439 Shift Total 500 173 108 8099 Weight (kg) 85 85 85 85 85 [...] and plan discussed with attending: Dr. Figueroa, director of optimization for Dr. Parmar SIGNATURE: Tom Prescott DO PATIENT NAME: Elizabeth Modi DATE: August 23, 2019 TIME: 8:02 AM Vascular AND Thoracic Surgery Service Pager: For questions or concerns Mon-Mon 6a-5p please page [phone]. After 5pm and on Weekends and Holidays, please page [phone] if in ICU or [phone] if on RNF. Normal [facility] PROGRESS HNO ID: [id number] Author: Cayetano Zapata MD Service: Orthopaedic Surgery [...] TIME: 6:27 AM PAGER/CONTACT #: [phone] Normal [facility] PROGRESS HNO ID: [id number] Author: Tom (Cassia Prescott DO Service: General Surgery Author [...] 2174 if on RNF. Normal [facility] Phosphorus Bloodon 0 Phosphate [Mass/Vol] 2.1 mg/dL Low 2.5-4.9 [facility] Comment on above: Performed By: #### M AG #### [place] [address] Vancomycin,Randomon 08-23-19 20 INR Coag (Bld) [Relative time] 22.0 mg/L Normal [facility] Comment on above: Result Comment: Trou gh 10.0-20.0 mg/L Peak 18.0-40.0 mg/L Performed By: #### C _ANA #### [place] [address] CONSULTon 08-22-2019 CONSULT HNO ID: [id number] Author: Paulo Landis Service: Infectious Disease Author [...] no longer doing that Employment: work with [employer] CURRENT ANTIBIOTICS: Zosyn Clindamycin vancomycin Current other [...] 22, 2019 TIME: 1:42 PM PAGER/CONTACT #: [phone] Mela [facility] CONSULT HNO ID: [id number] Author: Yadi Badillo Service: Orthopaedic Surgery Author Type: Physician Type: Consults Filed: 08/22/2019 6:41 PM Note Text: ORTHOPAEDIC SURGERY CONSULT Pt: ELIZABETH MODI Date of Consultation: 08/22/2019 Physician Consulted: Dr. Badillo Reason for Consultation: Necrotic foot HPI: 79 year old male presented to [facility] on 08/21/2019 with complaints of changes [...] 2019 Time: 6:32 PM Normal [facility] CONSULT HNO ID: [id number] Author: Ana Luisa Crooks Service: General Surgery [...] in ICU or 2174 if on RNF. Service date: 08/22/2019 Service time: 4:01 AM Reason for consult: foot wounds Nature of consult: routine Subjective HPI Mr. Modi is a 79 year old male with necrotic L foot. Patient reports that he has only noticed this over the last week. Initially presented to [place] for this reason and was transferred to [facility] for care. Denies pain and states [...] 2174 if on RNF. Normal [facility] CONSULT PROGon 08-22-2019 CONSULT PROG HNO ID: [id number] Author: Adali Murry Service: Wound Care Team Author Type: Nurse Specialist Type: Consult Progress Note Filed: 08/22/2019 11:19 AM Note Text: WOUND CARE CONSULT FACING CUTTING MACHINE OPERATOR NOTE SERVICE DATE: 08/22/2019 SERVICE TIME: 0910 TIME SPENT (minutes): 30 REASON FOR CONSULT: Eval R foot necrosis/wound CHIEF COMPLAINT: c/o necrotic toes and tissue to R foot. Subjective HISTORY OF PRESENT ILLNESS: Mr. Modi is a 79 year old male who is seen today with Yolanda Jackman Wound/general manager oracle data cloud, and presented to hospital with complaints of [...] found under the Get Images tab on Outline. Photos are uploaded by the wound ocular care technologist and may not be immediately available for viewing. Contact the wound and ostomy care department with questions. SIGNATURE: Adali Murry APRN.CHECK EMBOSSER PATIENT NAME: Elizabeth Modi DATE: August 22, 2019 TIME: 11:03 AM CONTACT#: [id number] [facility] CONSULT PROG HNO ID: [id number] Author: Jose Walton (Pharmacist) Service: Pharmacy Author [...] have any questions, please contact Pharmacy at [phone]. Age: [age] year old Allergies: ALLERGIES No [...] results found for: PEGGY Walton, Pharmacist Pager: [phone] Normal [facility] Comprehensive Panelon 2019 ALP [Catalytic activity/Vol] 107 U/L Normal 45-117 [facility] Comment on above: Performed By: #### C _ANA #### [place] [id number] Bilirubin [Mass/Vol] 0.5 mg/dL Normal 0.2-1.0 [facility] Comment on above: Result Comment: Use of this assay is not recommended for patients undergoing treatment with eltrombopag due to the potential for falsely elevated results. Performed By: #### C _ANA #### [facility] [address] [place], [place] [address] Protein [Mass/Vol] 6.4 g/dL Normal 6.4-8.2 [facility] Comment on above: Performed By: #### C _ANA #### [facility] [address] [place], [place] [address] ALT [Catalytic activity/Vol] 73 U/L Normal 12-78 [facility] Comment on above: Performed By: #### C _ANA #### [facility] [address] [place], [place] [address] AST [Catalytic activity/Vol] 81 U/L High 15-37 [facility] Comment on above: Performed By: #### C _ANA #### [facility] [address] [place], [place] [address] Creatinine [Mass/Vol] 0.95 mg/dL Normal 0.67-1.17 [facility] Comment on above: Result Comment: Use of this assay is not recommended for patients undergoing treatment with phenindione, due to the potential for falsely depressed results. Performed By: #### C _ANA #### [facility] [address] [place], [place] [address] Albumin [Mass/Vol] 1.7 g/dL Low 3.4-5.0 [facility] Comment on above: Performed By: #### C _ANA #### [facility] [address] [place], [place] [address] Anion gap [Moles/Vol] 12 mmol/L Normal 8-16 [facility] Comment on above: Performed By: #### C _ANA #### [facility] [address] [place], [place] [address] Calcium [Mass/Vol] 7.1 mg/dL Low 8.5-10.1 [facility] Comment on above: Performed By: #### C _ANA #### [facility] [address] [place], [place] [address] CO2 [Moles/Vol] 21 mmol/L Normal 21-32 [facility] Comment on above: Performed By: #### C _ANA #### [facility] [address] [place], [place] [address] Glucose [Mass/Vol] 218 mg/dL High 70-99 [facility] Comment on above: Performed By: #### C _ANA #### [facility] [address] [place], [place] [address] Urea nitrogen [Mass/Vol] 31 mg/dL High 7-18 [facility] Comment on above: Performed By: #### C _ANA #### [facility] [address] [place], [place] [address] Chloride [Moles/Vol] 104 mmol/L Normal 98-107 [facility] Comment on above: Performed By: #### C _ANA #### [facility] [address] [place] [address] Potassium [Moles/Vol] 4.1 mmol/L Normal 3.5-5.1 [facility] Comment on above: Performed By: #### C _ANA #### [facility] [address] [place], [place] [address] Sodium [Moles/Vol] 133 mmol/L Low 136-145 [facility] Comment on above: Performed By: #### C _ANA #### [facility] [address] [place] [address] Cult and Smr CAROLINE and AERon 0 08-22-2019 Cult and Smr CAROLINE and AER Test performed at [facility] Rare Mixed skin javier. Moderate Mixed anaerobic javier. No Bacteroides fragilis group isolated. No Clostridium perfringens isolated. Many Gram positive cocci No WBC seen Rare Squamous epithelial cells Normal [facility] Comment on above: Performed By: #### C _ANA #### [facility] [address] [place], [place] [address] Ferritinon 08-22-2019 Ferritin [Mass/Vol] 1342.20 ng/mL High 26.00-3 88.0 0 [facility] Comment on above: Performed By: #### F ERR #### [facility] [address] [place], [place] [address] Folateon 08-22-2019 Folate 3.80 ng/mL Normal 3.10-17.50 [facility] Comment on above: Performed By: #### P 8 #### [facility] [address] [place] [address] Hemogramon 08-22-2019 Erythrocyte distribution width (RBC) [Ratio] 13.2 % Normal 11.6-14.4 [facility] Comment on above: Performed By: #### F ERR #### [facility] [address] [place] [address] Hematocrit (Bld) [Volume fraction] 28.4 % Low 40.1-51.0 [facility] Comment on above: Performed By: #### F ERR #### [facility] [address] [place] [address] Hemoglobin (Bld) [Mass/Vol] 9.4 g/dL Low 13.7-17.5 [facility] Comment on above: Performed By: #### F ERR #### [place] [address] MCH (RBC) [Entitic mass] 28.7 pg Normal 25.7-32.2 [facility] Comment on above: Performed By: #### F ERR #### [facility] [address] [place] [address] MCHC (RBC) [Mass/Vol] 33.1 % Normal 32.3-36.5 [facility] Comment on above: Performed By: #### F ERR #### [place] [address] MCV (RBC) [Entitic vol] 86.9 fL Normal 83.2-95.6 [facility] Comment on above: Performed By: #### F ERR #### [facility] [address] [place] [address] Platelet mean volume (Bld) [Entitic vol] 9.7 fL Normal 8.7-12.0 [facility] Comment on above: Performed By: #### F ERR #### [place] [address] Platelets (Bld) [#/Vol] 380 thou/cmm High 141-365 [facility] Comment on above: Performed By: #### F ERR #### [facility] [address] [place] [address] RBC (Bld) [#/Vol] 3.27 mil/cmm Low 4.63-6.08 [facility] Comment on above: Performed By: #### F ERR #### [facility] [address] [place] [address] RDW SD 41.6 fl Normal 36.1-45.8 [facility] Comment on above: Performed By: #### F ERR #### [facility] [address] [place] [address] WBC (Bld) [#/Vol] 19.76 thou/cmm High 4.23-9.07 [facility] Comment on above: Performed By: #### F ERR #### [facility] [address] [place] [address] Iron % Saturationon 08-22-19 20 Iron % Saturation 15 % Low 20-55 [facility] Comment on above: Performed By: #### M AG #### [facility] [address] [place] [address] Iron Binding Cap. 150 ug/dL Low 250-450 [facility] Comment on above: Performed By: #### M AG #### [facility] [address] [place] [address] Iron Serum 23 ug/dL Low 65-175 [facility] Comment on above: Performed By: #### M AG #### [place] [address] MRI FOOT/TOES WO IVCON RTon 08-22-2019 MRI FOOT/TOES WO IVCON RT * * *Final Rep ort* * * DATE OF EXAM: Aug 22 2019 12:23PM [facility] 0195 - MRI FOOT/TOES WO IVCON RT [...] be reactive or related to early osteomyelitis. Ironing Pleater: ONEL Transcribe Date/Time: Aug 22 2019 12:47P Dictated by : PRISCILA RUELAS MD This examination was interpreted and the report reviewed and electronically signed by: PRISCILA RUELAS MD on Aug 22 2019 1:06PM EST Normal [facility] NURSING PROGon 08-22-2019 NURSING PROG HNO ID: [id number] Author: Marita Izquierdo) YURI Aponte Service: Nursing Author Type: Registered Nurse Type: Nursing Progress Note Filed: 08/22/2019 2:17 PM Note Text: Dr. Parmar into see pt. Pt to be scheduled for angiogram tomorrow. Pt states understanding of procedure Normal [facility] NUTRITIONon 08-22-2019 NUTRITION HNO ID: [id number] Author: Marisol Zimmerman) ALEIDA Falcon Service: Nutrition [...] of fat/muscle stores;Patient/family self-report Estimated kilocalorie needs: 1792-1941 Calorie Calculation Method: 30-35 kcals/kg Estimated protein [...] August 22, 2019 TIME: 2:27 PM PAGER: [phone] Normal [facility] PROGRESSon 08-22-2019 PROGRESS HNO ID: [id number] Author: Sue Bianchi Service: Hospital Medicine Author Type: Physician Type: Progress Notes Filed: 08/22/2019 3:29 PM Note Text: DEPARTMENT OF HOSPITAL MEDICINE PROGRESS NOTE SERVICE DATE: 08/22/2019 SERVICE TIME: 2:32 PM Hospital Medicine/Primary Attending: Sue Bianchi, DO NIGHT AND WEEKEND COVERAGE: After 7pm, please call cross cover pager #[phone] Subjective INTERVAL HPI: Patient seen and examined. [...] bowel sounds normally heard, no mass palpable CHECK EMBOSSER- cranial nerves 2 to 12 grossly intact, [...] 08/21/191914 vte non-pharmacologic prophylaxis - none indicated ([place]) 08/21/191914 activity - mobilize patient ([place], [place]) VTE Prophylaxis: VTE prophylaxis appropriate Disposition: Home with [facility] Plan of care discussed with: Provider, RN, Patient SIGNATURE: Sue Bianchi DO PATIENT NAME: Elizabeth Modi DATE: August 22, 2019 TIME: 2:32 PM PAGER/CONTACT #: [phone] Normal [facility] US ARTERIAL PVR LOWERon US ARTERIAL PVR LOWER * * *Final Report* * * DATE OF EXAM: Aug 22 2019 10:00AM A2U 1107 - US ARTERIAL PVR LOWER / PROCEDURE REASON: necrotic right foot * * * * Physician Interpretation * * * * Non-Invasive Vascular Laboratory [facility] Lower Extremity Arterial Physiology Study [...] Left small vessel disease. Technologist: Josefa Sweeney [facility] Ordering physician: ARA SINGER Interpreting physician: Ryan Allen MD Final RP Ironing Pleater: RICHARD Transcribe Date/Time: Aug 22 2019 9:04A Dictated by : RYAN ALLEN MD This examination was interpreted and the report reviewed and electronically signed by: RYAN ALLEN MD on Aug 22 2019 11:41AM EST Normal [facility] Vitamin B12on 08-22-2019 Cobalamin (Vitamin B12) [Mass/Vol] 944 pg/mL Normal 193-986 [facility] Comment on above: Performed By: #### P 8 #### [place] [address] CONSULT PROGon 08-21-2019 CONSULT PROG HNO ID: [id number] Author: Rahat Lemus (Pharmacist) Service: Pharmacy Author Type: Pharmacist Type: Consult Progress Note Filed: 08/21/2019 9:20 PM Note Text: Renal Dose Monitoring 1. Estimated CrCl: 52 (calculated from previous lab reported from MD of 1.2 and using IBW) 2. Recommendations: Zosyn 3.375g Dose:No Change Frequency:Increase frequency to Q6H - Rationale: Patient CrCl is greater than 40 and being infused over 30 minutes Pharmacy [phone] [facility] CONSULT PROG HNO ID: [id number] Author: Rahat Lemus (Pharmacist) Service: Pharmacy Author [...] have any questions[place] [phone]. Age: [age] year old Allergies: ALLERGIES No [...] Vancomycin Levels: No results found for: PEGGY LEMUS PHARMACIST Normal [facility] HISTORY PHYSICALon 0 HISTORY PHYSICAL HNO ID: [id number] Author: Karyna Perez Service: Hospital Medicine Author [...] After 7pm, please call cross cover pager #[phone] Subjective CHIEF COMPLAINT / REASON FOR ADMISSION: Right foot gangrene HPI: This is a 79 year old male has a past medical history of DM (diabetes mellitus) (HCC), Dyslipidemia, HTN (hypertension), and Hypothyroidism. sent as a transfer from [facility] for blackish coloration of multiple toe [...] the right foot and was sent to [facility] for further evaluation.For this illness, patient's [...] this note may have been generated using [employer] voice recognition software. Reasonable efforts were made to correct any dictation errors that resulted due to the programming of this software but some may still be present. Normal [facility] HOSPon 08-21-2019 HOSP Patient:Elizabeth Modi [...] After 7pm, please call cross cover pager #[phone] Subjective CHIEF COMPLAINT / REASON FOR ADMISSION: Right foot gangrene HPI: This is a 79 year old male has a past medical history of DM (diabetes mellitus) (HCC), Dyslipidemia, HTN (hypertension), and Hypothyroidism. sent as a transfer from [facility] for blackish coloration of multiple toe [...] the right foot and was sent to [facility] for further evaluation.For this illness, patient's [...] Elizabeth Modi PAGER/CONTACT #: After 7 pm [phone] Disclaimer: Portions of this note may have been generated using [employer] voice recognition software. Reasonable efforts were made to correct any dictation errors that resulted due to the programming of this software but some may still be present. Previous Version RAHAT LEMUS PHARMACIST 08/21/2019 9:11 PM Signed PHARMACY VANCOMYCIN [...] [place] any questions[place] [phone]. Age: [age] year old Allergies: ALLERGIES No [...] and being infused over 30 minutes Pharmacy [id number] Ana Luisa Crooks MD 08/22/2019 6:04 AM [...] questions or concerns Mon-Mon 6a-5p please page [phone]. After 5pm and on Weekends and Holidays, please page [phone] if in ICU or [phone] if on RNF. Service date: 08/22/2019 Service time: 4:01 AM Reason for consult: foot wounds Nature of consult: routine Subjective HPI Mr. Modi is a 79 year old male with necrotic L foot. Patient reports that he has only noticed this over the last week. Initially presented to [place] for this reason and was transferred to [facility] for care. Denies pain and states [...] have any questions, please contact Pharmacy at [phone]. Age: [age] year old Allergies: ALLERGIES No [...] results found for: PEGGY Walton, Pharmacist Pager: [phone] Previous Version Adali Murry APRN.CHECK EMBOSSER 08/22/2019 11:19 AM Signed WOUND CARE CONSULT FACING CUTTING MACHINE OPERATOR NOTE SERVICE DATE: 08/22/2019 SERVICE TIME: 0910 TIME SPENT (minutes): 30 REASON FOR CONSULT: Eval R foot necrosis/wound CHIEF COMPLAINT: c/o necrotic toes and tissue to R foot. Subjective HISTORY OF PRESENT ILLNESS: Mr. Modi is a 79 year old male who is seen today with Yolanda Jackman Wound/general manager oracle data cloud, and presented to hospital with complaints of [...] found under the Get Images tab on Outline. Photos are uploaded by the wound ocular care technologist and may not be immediately available for viewing. Contact the wound and ostomy care department with questions. SIGNATURE: Adali Murry APRN.CHECK EMBOSSER PATIENT NAME: Elizabeth Modi DATE: August 22, 2019 TIME: 11:03 AM CONTACT#: [id number] Yadi Badillo DPM 08/22/2019 6:41 PM Signed ORTHOPAEDIC SURGERY CONSULT Pt: ELIZABETH MODI Date of Consultation: 08/22/2019 Physician Consulted: Dr. Badilol Reason for Consultation: Necrotic foot HPI: 79 year old male presented to [facility] on 08/21/2019 with complaints of changes [...] no longer doing that Employment: work with [employer] CURRENT ANTIBIOTICS: Zosyn Clindamycin vancomycin Current other [...] of fat/muscle stores;Patient/family self-report Estimated kilocalorie needs: 1878-6972 Calorie Calculation Method: 30-35 kcals/kg Estimated protein [...] Inflammation: Hyperglycemia;Hypoalbu minemia;Imaging studies SIGNATURE: Kacie Marquez Sanitation Worker PATIENT NAME: Elizabeth Modi DATE: August 22, 2019 TIME: 2:27 PM PAGER: [phone] Previous Version Sue Bianchi DO 08/22/2019 3:29 PM Signed DEPARTMENT OF HOSPITAL MEDICINE PROGRESS NOTE SERVICE DATE: 08/22/2019 SERVICE TIME: 2:32 PM Hospital Medicine/Primary Attending: Sue Bianchi DO NIGHT AND WEEKEND COVERAGE: After 7pm, please call cross cover pager [phone] Subjective INTERVAL HPI: Patient seen and examined. [...] bowel sounds normally heard, no mass palpable CHECK EMBOSSER- cranial nerves 2 to 12 grossly intact, [...] indicated ([place]) 08/21/191914 activity - mobilize patient ([place]) VTE Prophylaxis: VTE prophylaxis appropriate Disposition: Home with [facility] Plan of care discussed with: Provider, RN, Patient SIGNATURE: Sue Bianchi DO PATIENT NAME: Elizabeth Modi DATE: August 22, 2019 TIME: 2:32 PM PAGER/CONTACT #: [phone] Gordo Figueroa MD 08/23/2019 1:07 PM Signed [facility] - Operative Report ELIZABETH MODI : 1940 AGE: 79. SEX: M PATIENT TYPE: I HOSP SVC: ORCA LOCATION: [facility] ATTENDING PHYSICIAN: Ara Singer M.D. CSN NUMBER: [id number] DATE OF SURGERY/PROCEDURE: 08/23/2019 INCISION/PROCEDURE START TIME: 8:42 AM INCISION CLOSE/PROCEDURE END TIME: 9:04 AM PREOPERATIVE DIAGNOSIS: Gangrenous changes of the right foot with gas in the subcutaneous tissues. POSTOPERATIVE DIAGNOSIS: Gangrenous changes of the right foot with gas in the subcutaneous tissues. SURGEON: Gordo Figueroa MD STAIN APPLICATOR: 1. Jennifer Crooks M.D. 2. Irvin Walker, cardiovascular surgical tech. SURGERY/PROCEDURE: Guillotine right above ankle/below-knee amputation. ANESTHESIA: [...] area in stable condition. Gordo Figueroa MD DJW:[id number] /[id number] Previous Version Doris Eden MD 08/25/2019 9:16 AM Signed [facility] - Consultation PATIENT NAME: ELIZABETH MODI [facility]: [id number] DATE OF : 1940 SEX/AGE: M/79 PATIENT TYPE: I HOSP [facility]: ORPR LOCATION: [id number] DATE OF SERVICE: 08/23/2019 TIME OF SERVICE: 01:15 PM REFERRING PHYSICIAN: Dexter Chávez MD REASON FOR CONSULTATION: Uncontrolled diabetes. HISTORY OF PRESENT ILLNESS: The patient is a 79-year-old male, who was transferred from [facility] with gangrene off right foot toes. Patient [...] Lantus 10. Doris Eden MD Endocrinology SM:shima /[id number] Tom Prescott DO, DO 08/23/2019 1:43 AM Signed Patient seen multiple [...] questions or concerns Mon-Mon 6a-5p please page [phone]. After 5pm and on Weekends and Holidays, please page [phone] if in ICU or [phone] if on RNF. Cayetano Zapata MD, MD [...] TIME: 6:27 AM PAGER/CONTACT #: [phone] Marita Aponte, RN, RN 08/23/2019 8:[address] Figueroa into see pt. Dr. Figueroa informing pt that surgery has been moved up to this morning. Pt states understanding. Marita Aponte, RN, RN 08/23/2019 8:07 AM Signed Report [...] taken via cart to presurgery unit Sj Huizar, 08/23/2019 8:34 AM Addendum ANESTHESIOLOGY DAY OF [...] Units SUBCUTANEOUS q 12 H Mohammad F Mu-Ism 5,000 Units at 08/22/19 0807 - [MAR Hold due to Transfer] aluminum-magnesium hydroxide-simethicone 200-200-20 mg/5 mL 30 mL (MAALOX,MYLANTA,MAG-AL PLUS) 30 mL ORAL DAILY PRN Mohammad F Mu-Ism - [MAR Hold due to Transfer] ondansetron 4 mg tab(s) (ZOFRAN) 4 mg ORAL q 6 H PRN Mohammad F Mu-Ism Or - [MAR Hold due to Transfer] ondansetron (PF) 4 mg injection (ZOFRAN) 4 mg INTRAVENOUS q 6 H PRN Mohammad F Mu-Ism - [MAR Hold due to Transfer] polyethylene glycol 3350 17 g packet (MIRALAX, GLYCOLAX) 17 g ORAL DAILY PRN Mohammad F Mu-Ism - [MAR Hold due to Transfer] docusate sodium 100 mg cap(s) (COLACE) 100 mg ORAL BID PRN Mohammad F Mu-Ism - [MAR Hold due to Transfer] magnesium hydroxide 400 mg/5 mL 30 mL (MOM) 30 mL ORAL DAILY PRN Mohammad F Mu-Ism - [MAR Hold due to Transfer] bisacodyl 10 mg suppository (DULCOLAX) 10 mg RECTAL DAILY PRN Mohammad F Mu-Ism - [MAR Hold due to Transfer] acetaminophen 650 mg tab(s) (TYLENOL) 650 mg ORAL q 6 H PRN Mohammad F Mu-Ism - [MAR Hold due to Transfer] atorvastatin 40 mg tab(s) (LIPITOR) 40 mg ORAL DAILY Mohammad F Mu-Ism 40 mg at 08/22/192009 - [MAR Hold due to Transfer] lisinopril 10 mg tab(s) (ZESTRIL, PRINIVIL) 10 mg ORAL DAILY Mohammad F Mu-Ism 10 mg at 08/22/19 0807 - [MAR Hold due to Transfer] levothyroxine 25 mcg tab(s) (SYNTHROID) 25 mcg ORAL DAILY Mohammad F Mu-Ism 25 mcg at 08/22/19 0600 - [MAR Hold due to Transfer] insulin lispro pen (rapid acting) (HumaLOG KWIKPEN) SUBCUTANEOUS w MEALS AND HS Mohammad F Mu-Ism 1 Units at 08/22/192128 - [MAR Hold due to Transfer] dextrose 40 % 15 g 15 g ORAL PRN Mohammad F Mu-Ism Or - [MAR Hold due to Transfer] glucagon 1 mg injection (GLUCAGEN) 1 mg INTRAMUSCULAR PRN Mohammad F Mu-Ism Or - [MAR Hold due to Transfer] dextrose 50% in water 25 mL syringe 12.5 g INTRAVENOUS PRN Mohammad F Mu-Ism - [MAR Hold due to Transfer] vancomycin iv piggyback 1.25 g in D5W 250 mL (VANCOCIN) 1.25 g INTRAVENOUS q 12 HR Mohammad F Mu-Ism 250 mL/hr at 08/22/192009 1.25 g at 08/22/192009 - [MAR Hold due to Transfer] vancomycin dosing and monitoring per pharmacy OTHER As Directed Mohammad F Mu-Ism - [MAR Hold due to Transfer] piperacillin-tazobacta m iv piggyback 3.375 g in dextrose (iso-osmotic) 50 mL (ZOSYN) 3.375 g INTRAVENOUS q 6 H Mohammad F Mu-Ism 100 mL/hr at 08/23/19 0549 3.375 g at 08/23/19 0549 - [MAR Hold due to Transfer] clindamycin iv piggyback 600 mg in D5W 50 mL (CLEOCIN) 600 mg INTRAVENOUS q 6 H Mohammad F Mu-Ism 100 mL/hr at 08/23/19 0549 600 mg [...] August 23, 2019 TIME: 8:32 AM CSN: [id number] Previous Version Tom Prescott DO, DO 08/23/2019 [...] questions or concerns Mon-Fri 6a-5p please page [phone]. After 5pm and on Weekends and Holidays, please page [phone] if in ICU or [phone] if on RNF. Subjective SUBJECTIVE: Patient seen [...] Air IANDO: Date 08/22/19699 - 08/23/1965808/23/19699 - 08/24/19658 Shift 3919-8577 1059-4095 7334-8942 24 Hour Total 4430-4953 6556-7965 1047-6277 24 Hour Total INTAKE PO 240 240 PO 240 240 Shift Total 240 240 OUTPUT Urine 500 042 447 4161 Void (ml) 500 608 620 6660 Shift Total 500 680 157 9074 Weight (kg) 85 85 85 85 85 [...] tab(s) (SYNTHROID) 25 mcg ORAL DAILY - [AUG Hold due to Transfer] insulin lispro pen [...] and plan discussed with attending: Dr. Figueroa, director of optimization for Dr. Parmar SIGNATURE: Tom Prescott DO PATIENT NAME: Elizabeth Modi DATE: August 23, 2019 TIME: 8:02 AM Vascular AND Thoracic Surgery Service Pager: For questions or concerns Mon-Fri 6a-5p please page [phone]. After 5pm and on Weekends and Holidays, please page [phone] if in ICU or [phone] if on RNF. Karl Russell, RN, RN [...] the assistance of the resident and the cardiovascular surgical tech BRIEF OP / PROCEDURE NOTE LOG ID: [id number] Surgery/Procedure Date: 08/23/2019 Incision/Procedure Start Time: 8:42 AM Incision Close/Procedure End Time: 9:04 AM Surgeon(s)/Procedurali st(s) and Medical Aides Teacher(s): Surgeon(s) and Role: * Gordo Figueroa - [...] Preop SIGNATURE: Jennifer Crooks MD PATIENT NAME: Elziabeth Modi DATE: August 23, 2019 TIME: 9:29 [...] After 7pm, please call cross cover pager #[phone] Subjective INTERVAL HPI: Patient seen and examined. [...] bowel sounds normally heard, no mass palpable CHECK EMBOSSER- cranial nerves 2 to 12 grossly intact, [...] 08/21/191914 vte non-pharmacologic prophylaxis - none indicated (ny,vt) 08/21/191914 activity - mobilize patient (ny,vt) VTE Prophylaxis: VTE prophylaxis appropriate Disposition: Home with [facility] Plan of care discussed with: Provider, RN, Patient SIGNATURE: Sue Bianchi DO PATIENT NAME: Elizabeth Modi DATE: August 23, 2019 TIME:12:20 PM PAGER/CONTACT #: [phone] Doris Eden MD 08/23/2019 1:21 PM Signed [...] Inpatient Needs Prior to Discharge: OT/PT Evaluation;Discharge Transportation;[facility] Facility;Precertificat ion MEDICAL: RAGHU SINGH [place] 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 Last discharge within 30 days: No Advance Directive: Current Advance Directive: None Apprentice/Lineman Attempted to Assist with AD Completion: Yes [...] Mostly I feel financially burdened by my [id number] expenses for my prescription medication:: 0 - Agree Somewhat Risk Score: 0 Patient is categorized as: Low risk < 2 Are you interested in bedside delivery of your medications? No Is Patient Psychosocially Complex?: No ASSESSMENT AND PLAN: Medical Needs: Medical Needs: None Psychosocial Needs: Psychosocial Needs: None FREEDOM OF CHOICE EXPLAINED: [place] of Choice Given: Yes Level of Care Discussed: Inpatient Rehab Facility Financial Disclosure Provided: Yes Financial Disclosure Comments: ESR Provider List: (Pt refused list- would like [facility]. ) POTENTIAL TRANSITION PLANS Rehab Facility Spoke with pt at the bedside. 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 Pt states that he has a PCP in [place]. Pt is s/p right foot amp. Anticipate AR needs at d/c. Await PT/OT evals. Pt would like [facility] rehab- referral sent. Pt will need auth and likely transport at d/c. Will follow. SIGNATURE: Tami Patricio RN PATIENT NAME: Elizabeth Modi DATE: August 23, 2019 TIME: 3:18 PM PAGER/CONTACT #: [phone] Paulo Landis MD 08/23/2019 3:55 PM Addendum [...] labs Paulo Landis MD Infectious Disease Respiratory [place] Pager: [phone] August 23, 2019 Previous Version ISAC NAVARRO [...] have any questions, [place] [phone]. Age: [age] year old Allergies: ALLERGIES No [...] questions or concerns Mon-Fri 6a-5p please page [phone]. After 5pm and on Weekends and Holidays, please page [phone] if in ICU or [phone] if on RNF. Subjective SUBJECTIVE: Denies leg [...] 0659 08/24/19 07 - 08/25/19 0659 Shift 9842-1166 2764-2111 4949-3597 24 Hour Total 8938-0225 7572-5334 8045-6328 24 Hour Total INTAKE IV 625 625 OR Crystalloid intake (mL) 250 250 Volume (mL) (lactated ringers infusion) 125 125 Volume (mL) (vancomycin iv piggyback 1.25 g in D5W 250 mL (VANCOCIN)) 250 250 Shift Total 625 625 OUTPUT Urine 107 320 4936 Void (ml) 461 716 0903 Blood 50 50 Estimated Blood loss 50 50 Shift Total 266 601 2346 Weight (kg) 85 85 85 85 85 [...] 3 g in NaCl 0.9% 100 mL MB+/ADD-[place] (UNASY[place]) 3 g INTRAVENOUS q 6 H [...] in ICU or 2174 if on RNF. MARTHA RYAN PHARMACIST 08/24/2019 9:16 AM Signed PHARMACY VANCOMYCIN DOSING NOTE Patient Name: Elizabeth Modi Admission Date: 08/21/2019 Date of Consult: 08/24/2019 Time of Consult: 9:15 AM The primary service has discontinued vancomycin therapy. Pharmacy vancomycin dosing service will sign off. Thank you for allowing us to participate in this patient's care. Please contact pharmacy if questions. MARTHA RYAN PHARMACIST Ext: [phone] Edy Paredes MD 08/24/2019 9:20 AM Signed Edy Paredes MD, MS, FACP, [facility] Division of Infectious Diseses [address] [place] [address] Office: [phone] INFECTIOUS DISEASE CONSULT PROGRESS NOTE SERVICE DATE: [...] off. SIGNATURE: Edy Paredes MD, MS, FACP, [facility] PATIENT NAME: Elizabeth Modi DATE: August 24, 2019 TIME: 9:16 AM PAGER/CONTACT #: [phone] Sue Bianchi DO 08/24/2019 5:16 PM Signed DEPARTMENT [facility] MEDICINE PROGRESS NOTE SERVICE DATE: 08/24/2019 SERVICE TIME: 12:40 PM Hospital Medicine/Primary Attending: Sue Bianchi DO NIGHT AND WEEKEND COVERAGE: After 7pm, please call cross cover pager #[phone] Subjective INTERVAL HPI: Patient seen and examined. [...] bowel sounds normally heard, no mass palpable CHECK EMBOSSER- cranial nerves 2 to 12 grossly intact, no focal motor or sensory deficits noted, speech normal Psych- A ANDO x 3, mood normal Skin- R lower extremity dressing intact, wound care notes and images reviewed Lines, Drains, and Airways Line Peripheral 08/21/192238 Assessment Left Antecubital 20 Gauge 2 days Peripheral 08/21/190 Assessment Right Antecubital 20 Gauge 2 days [...] 08/21/191914 vte non-pharmacologic prophylaxis - none indicated (ny,vt) 08/21/191914 activity - mobilize patient ([place]) VTE Prophylaxis: VTE prophylaxis appropriate Disposition: Home with [facility] Plan of care discussed with: Provider, RN, Patient SIGNATURE: Sue Bianchi DO PATIENT NAME: Elizabeth Modi DATE: August 24, 2019 TIME:12:40 PM PAGER/CONTACT #: [phone] Susan Miner OTR/Serene 08/24/2019 1:07 PM Signed Occupational Therapy Evaluation SERVICE DATE: 08/24/2019 SERVICE TIME: 1133 to 1208 ROOM: [place] [address] Recommended Discharge Disposition: Acute Rehab Justification For [...] (ADL);General symptoms and signs-other Interventions Provided: Evaluation;Self Longterm Management (36494) $ Evaluation-Moderate (91261) Billed Units: 1 unit OT Evaluation Moderate [...] occupational performance: thyroid, HTN, DM, claudication Self Longterm Management (46684) Treatment Minutes: 10 1 unit Skilled Intervention(s): [...] lower extremity. Reason for Occupational Therapy Consult: CAPACITY MANAGEMENT SPECIALIST Relevant Past Medical History: thyroid, HTN, DM, claudication Patient Report: Patient supine in bed upon entry of therapy. Patient agreeable to (more content not included)... Normal [facility] No Panel Information [facility] Vital Signs Date Time Vital Sign Value Performing Clinician Facility 10-16-2024 07:59-0400 Body height 167.[address] Diana Salmeron MD Work Phone: [facility] 10-16-2024 07:59-0400 Body mass index (BMI) [Ratio] 29 kg/m2 Dr. Diana Salmeron MD Work Phone: [facility] 10-16-2024 07:59-0400 Body weight 81.[address] Diana Salmeron MD Work Phone: [facility] 10-16-2024 07:59-0400 Diastolic blood pressure 74 mm[Hg] Dr. Diana Salmeron MD Work Phone: [facility] 10-16-2024 07:59-0400 Heart rate 64 /min Dr. Diana Salmeron MD Work Phone: [facility] 10-16-2024 07:59-0400 Respiratory rate 18 /min Dr. Diana Salmeron MD Work Phone: [facility] 10-16-2024 07:59-0400 Systolic blood pressure 131 mm[Hg] Dr. Diana Salmeron MD Work Phone: [facility] 10-16-2024 00:07-0400 Body temperature 97.8 [degF] Dr. Diana Salmeron MD Work Phone: [facility] 10-16-2024 00:07-0400 Diastolic blood pressure 76 mm[Hg] Dr. Diana Salmeron MD Work Phone: [facility] 10-16-2024 00:07-0400 Heart rate 68 /min Dr. Diana Salmeron MD Work Phone: [facility] 10-16-2024 00:07-0400 Respiratory rate 16 /min Dr. Diana Salmeron MD Work Phone: [facility] 10-16-2024 00:07-0400 SaO2% (BldA) [Mass fraction] 97 % Dr. Diana Salmeron MD Work Phone: [facility] 10-16-2024 00:07-0400 Systolic blood pressure 148 mm[Hg] Dr. Diana Salmeron MD Work Phone: [facility] 10-15-2024 17:47-0400 Body mass index (BMI) [Ratio] 29.9 kg/m2 Dr. Diana Salmeron MD Work Phone: [facility] 10-15-2024 17:47-0400 Body weight [address] Diana Salmeron MD Work Phone: [facility] 10-15-2024 16:00-0400 Body height 167.[address] Diana Salmeron MD Work Phone: [facility] 10-01-2024 13:22-0400 Body height 167.6 cm Nikolai Connor PA-C Work Phone: [facility] Comment on above: After amputations per patient. 10-01-2024 13:22-0400 Body temperature 97.3 [degF] Nikolai Connor PA-C Work Phone: [address]15-2025 13:22-0400 Diastolic blood pressure 82 mm[Hg] Nikolai Connor PA-C Work Phone: [facility] Comment on above: Mario notified of blood pressure- pat ient aware to let staff where he resides know of his blood pressure. 10-01-2024 13:22-0400 Heart rate 62 /min Nikolai Connor PA-C Work Phone: [facility] 10-01-2024 13:22-0400 Respiratory rate 14 /min Nikolai Connor PA-C Work Phone: [facility] 10-01-2024 13:22-0400 SaO2% (BldA) [Mass fraction] 97 % Nikolai Connor PA-C Work Phone: [facility] 10-01-2024 13:22-0400 Systolic blood pressure 182 mm[Hg] Nikolai Connor PA-C Work Phone: [facility] Comment on above: Mario notified of blood pressure- pat ient aware to let staff where he resides know of his blood pressure. 01-11-2023 12:58-0400 Body temperature 97.4 [degF] Dr. Dexter Reyes Work Phone: [facility] 01-11-2023 12:58-0400 Diastolic blood pressure 65 mm[Hg] Dr. Dexter Reyes Work Phone: [facility] 01-11-2023 12:58-0400 Heart rate 66 /min Dr. Dexter Reyes Work Phone: [facility] 01-11-2023 12:58-0400 Respiratory rate 17 /min Dr. Dexter Reyes Work Phone: [facility] 01-11-2023 12:58-0400 Systolic blood pressure 113 mm[Hg] Dr. Dexter Reyes Work Phone: [facility] 12-17-2022 12:00-0400 Body temperature 98.8 [degF] Dr. Dexter Reyes Work Phone: [facility] 12-17-2022 12:00-0400 Diastolic blood pressure 68 mm[Hg] Dr. Dexter Reyes Work Phone: [facility] 12-17-2022 12:00-0400 Heart rate 60 /min Dr. Dexter Reyes Work Phone: [facility] 12-17-2022 12:00-0400 Inhaled oxygen flow rate 2 L/min Dr. Dexter Reyes Work Phone: 6(389)543-062615 [place] [address] 12-17-2022 12:00-0400 Respiratory rate 18 /min Dr. Dexter Reyes Work Phone: 5(453)768-504115 [place] [address] 12-17-2022 12:00-0400 SaO2% (BldA) [Mass fraction] 95 % Dr. Dexter Reyes Work Phone: 8(665)752-415415 [place] [address] 12-17-2022 12:00-0400 Systolic blood pressure 147 mm[Hg] Dr. Dexter Reyes Work Phone: 8(049)015-885315 [place] [address] 12-17-2022 06:00-0400 Body mass index (BMI) [Ratio] 32.6 kg/m2 Dr. Dexter Reyes Work Phone: 4(564)911-782615 [place] [address] 12-17-2022 06:00-0400 Body weight 92.[address] Dexter Reyes Work Phone: [facility] 12-15-2022 20:05-0400 Inhaled oxygen concentration 4 % Dr. Dexter Reyes Work Phone: [facility] 12-15-2022 10:54-0400 Body height 167.[address] Dexter Reyes Work Phone: [facility] 09-01-2022 09:59-0400 Body temperature 97.7 [degF] Shana Delgado MD Work Phone: [facility] 09-01-2022 09:59-0400 Diastolic blood pressure 68 mm[Hg] Shana Delgado MD Work Phone: [facility] 09-01-2022 09:59-0400 Heart rate 66 /min Shana Delgado MD Work Phone: [facility] 09-01-2022 09:59-0400 Systolic blood pressure 135 mm[Hg] Shana Delgado MD Work Phone: [facility] 01-13-2022 13:09-0400 Heart rate 79 /min DR KARL BARRERA MD [facility] 01-13-2022 11:36-0400 Body temperature 97.88 [degF] DR KARL BARRERA MD [address] 01-13-2022 11:36-0400 Diastolic Blood Pressure NBP [address] KARL BARRERA MD [address] 01-13-2022 11:36-0400 Heart rate 79 /min DR KARL BARRERA MD [facility] 01-13-2022 11:36-0400 Mean blood pressure 79 mm[Hg] DR KARL BARRERA MD [address] 01-13-2022 11:36-0400 Reason For Taking VItal Signs DR KARL BARRERA MD [address] 01-13-2022 11:36-0400 Respiratory rate 18 /min DR KARL BARRERA MD [facility] 01-13-2022 11:36-0400 Systolic Blood Pressure NBP [address] KARL BARRERA MD [facility] 01-13-2022 08:42-0400 Heart rate 81 /min DR KARL BARRERA MD [facility] 01-13-2022 08:42-0400 Heart rate 82 /min DR KARL BARRERA MD [address] 01-13-2022 07:06-0400 Body temperature 97.52 [degF] DR KARL BARRERA MD [address] [place] [address] 01-13-2022 07:06-0400 Diastolic Blood Pressure NBP [address] KARL BARRERA MD [address] [place] [address] 01-13-2022 07:06-0400 Mean blood pressure 79 mm[Hg] DR KALR BARRERA MD [address] [place] [address] 01-13-2022 07:06-0400 Reason For Taking VItal Signs DR KARL BARRERA MD [address] [place] [address] 01-13-2022 07:06-0400 Respiratory rate 18 /min DR KARL BARRERA MD [address] [place] [address] 01-13-2022 07:06-0400 Systolic Blood Pressure NBP [address] KARL BARRERA MD [address] [place] [address] 01-13-2022 04:52-0400 Body temperature 97.7 [degF] DR KARL BARRERA MD [address] [place] [address] 01-13-2022 04:52-0400 Diastolic Blood Pressure NBP [address] KARL BARRERA MD [address] [place] [address] 01-13-2022 04:52-0400 Mean blood pressure 83 mm[Hg] DR KARL BARRERA MD [address] [place] [address] 01-13-2022 04:52-0400 Reason For Taking VItal Signs DR KARL BARRERA MD [address] [place] [address] 01-13-2022 04:52-0400 Respiratory rate 18 /min DR KARL BARRERA MD [address] [place] [address] 01-13-2022 04:52-0400 Systolic Blood Pressure NBP [address] KARL BARRERA MD [address] [place] [address] 01-12-2022 16:59-0400 Heart rate 71 /min DR KARL BARRERA MD [address] [place] [address] 01-12-2022 09:02-0400 Heart rate 71 /min DR KARL BARRERA MD [address] [place] [address] 01-11-2022 04:44-0400 Diastolic blood pressure 79 mm[Hg] DR KALR BARRERA MD [address] [place] [address] 01-11-2022 04:44-0400 Mean blood pressure 110 mm[Hg] DR KARL BARRERA MD [address] [place] [address] 01-11-2022 04:44-0400 Systolic blood pressure 171 mm[Hg] DR AKRL BARRERA MD [address] [place] [address] 01-11-2022 04:02-0400 Diastolic blood pressure 71 mm[Hg] DR KARL BARRERA MD [address] [place] [address] 01-11-2022 04:02-0400 Mean blood pressure 105 mm[Hg] DR KARL BARRERA MD [address] [place] [address] 01-11-2022 04:02-0400 Systolic blood pressure 173 mm[Hg] DR KARL BARRERA MD [address] [place] [address] 01-10-2022 02:13-0400 Diastolic blood pressure 73 mm[Hg] DR KARL BARRERA MD [address] [place] [address] 01-10-2022 02:13-0400 Systolic blood pressure 179 mm[Hg] DR KARL BARRERA MD [address] [place] [address] 01-10-2022 01:27-0400 Signs/Symptoms Transfusion Reaction DR KARL BARRERA MD [address] [place] [address] 01-10-2022 01:27-0400 Transfusion Documentation Ended/Paper DR KARL BARRERA MD [address] [place] [address] 01-10-2022 00:56-0400 Signs/Symptoms Transfusion Reaction DR KARL BARRERA MD [address] [place] [address] 01-10-2022 00:27-0400 Heart rate 63 /min DR KARL BARRERA MD [address] [place] [address] 01-10-2022 00:11-0400 Signs/Symptoms Transfusion Reaction No DR KARL BARRERA MD [address] [place] [address] 01-10-2022 00:11-0400 Heart rate 64 /min DR KARL BARRERA MD [address] [place] [address] 01-09-2022 22:36-0400 Transfusion Documentation Started/Paper DR KARL BARRERA MD [address] [place] [address] 01-06-2022 09:26-0400 Diastolic blood pressure 45 mm[Hg] DR KARL BARRERA MD [address] [place] [address] 01-06-2022 09:26-0400 Mean blood pressure 64 mm[Hg] DR KARL BARRERA MD [address] [place] [address] 01-06-2022 09:26-0400 Systolic blood pressure 103 mm[Hg] DR KARL BARRERA MD [address] [place] [address] 01-06-2022 08:38-0400 Diastolic blood pressure 50 mm[Hg] DR KARL BARRERA MD [address] [place] [address] 01-06-2022 08:38-0400 Mean blood pressure 69 mm[Hg] DR KARL BARRERA MD [address] [place] [address] 01-06-2022 08:38-0400 Systolic blood pressure 107 mm[Hg] DR KARL BARRERA MD [address] [place] [address] 01-06-2022 07:40-0400 Diastolic blood pressure 45 mm[Hg] DR KARL BARRERA MD [address] [place] [address] 01-06-2022 07:40-0400 Mean blood pressure 66 mm[Hg] DR KARL BARRERA MD [address] [place] [address] 01-06-2022 07:40-0400 Systolic blood pressure 113 mm[Hg] DR KARL BARRERA MD [address] [place] [address] 01-05-2022 20:12-0400 SaO2% (BldA) [Mass fraction] 98.4 % DR KARL BARRERA MD [facility] 01-05-2022 18:47-0400 SaO2% (BldA) [Mass fraction] 97.6 % DR KARL BARRERA MD [facility] 01-05-2022 17:13-0400 SaO2% (BldA) [Mass fraction] 97.7 % DR KARL BARRERA MD [facility] 01-05-2022 12:30-0400 Body temperature 98.98 [degF] DR KARL BARRERA MD [address] [place] [address] 01-05-2022 12:25-0400 Body temperature 99 [degF] DR KARL BARRERA MD [address] [place] [address] 01-05-2022 12:20-0400 Body temperature 99.07 [degF] DR KARL BARRERA MD [address] [place] [address] 01-05-2022 12:20-0400 Body temperature 98.51 [degF] DR KARL BARRERA MD [address] [place] [address] 01-05-2022 12:15-0400 Body temperature 98.6 [degF] DR KARL BARRERA MD [address] [place] [address] 01-05-2022 12:10-0400 Body temperature 98.67 [degF] DR KARL BARRERA MD [address] [place] [address] 01-05-2022 11:54-0400 SaO2% (BldA) [Mass fraction] 98.2 % DR KARL BARRERA MD [facility] 01-05-2022 11:19-0400 SaO2% (BldA) [Mass fraction] 99.4 % DR KARL BARRERA MD [facility] 01-05-2022 10:44-0400 SaO2% (BldA) [Mass fraction] 99.4 % DR KARL BARRERA MD [facility] 01-03-2022 23:07-0400 Mean blood pressure 83 mm[Hg] DR KARL BARRERA MD [facility] 01-03-2022 12:05-0400 Body height [address] KARL BARRERA MD [address] 01-03-2022 12:05-0400 Body weight 81.[address] KARL BARRERA MD [address] [place] [address] 01-03-2022 12:05-0400 Body weight 35.28 kg/m2 DR KARL BARRERA MD [address] 01-03-2022 04:54-0400 Body weight 81.[address] KARL BARRERA MD [address] 12-31-2021 03:38-0400 Heart rate 80 /min DR KARL BARRERA MD [facility] 12-30-2021 05:08-0400 Body weight 103.[address] KRAL BARRERA MD [facility] 02-09-2021 12:00-0400 Diastolic blood pressure 53 mm[Hg] Ammy Vicente MD Work Phone: [facility] Work Phone: 02-09-2021 12:00-0400 Heart rate 51 /min Ammy Vicente MD Work Phone: [facility] Work Phone: 02-09-2021 12:00-0400 SaO2% (BldA) [Mass fraction] 91 % Ammy Vicente MD Work Phone: [facility] Work Phone: 02-09-2021 12:00-0400 Systolic blood pressure 110 mm[Hg] Ammy Vicente MD Work Phone: [facility] Work Phone: 02-09-2021 11:45-0400 Respiratory rate 16 /min Ammy Vicente MD Work Phone: [facility] Work Phone: 02-09-2021 10:58-0400 Body temperature 98.1 [degF] Ammy Vicente MD Work Phone: [facility] Work Phone: 02-09-2021 08:21-0400 Body height 142.2 cm Ammy Vicente MD Work Phone: [facility] Work Phone: 02-09-2021 08:21-0400 Body mass index (BMI) [Ratio] 36.77 kg/m2 Ammy Vicente MD [facility] Work Phone: 02-09-2021 08:21-0400 Body weight 74.39 kg Ammy Vicente MD Work Phone: [facility] Work Phone: Encounters Encounter Date Encounter Type Care Provider Facility Start: 04-17-2025 End: 04-17-2025 ambulatory Diana Salmeron Facility:[facility] Start: 03-19-2025 ambulatory Victor M matute OLS Facility:[facility] Start: 02-19-2025 ambulatory Victor M matute OLS Facility:[facility] Start: 02-11-2025 ambulatory Victor M matute OLS Facility:[facility] Start: 02-11-2025 Registered Referred [facility] M [facility] Start: 02-04-2025 ambulatory Victor M matute OLS Facility:[facility] Start: 02-04-2025 Registered Referred Victor M Rojas MD -[facility] Start: 01-28-2025 End: 01-28-[address] Victor M Rojas MD -[facility] Work Phone: Start: 01-28-2025 End: 01-28-[address] Diana Salmeron MD Work Phone: -[facility] Start: 01-28-2025 [facility] Start: 01-22-2025 ambulatory Victor M matute OLS Facility:[facility] Start: 01-22-2025 [facility] Start: 01-20-2025 ambulatory [facility]ANDRA [facility] Start: 01-20-2025 [facility] Start: 01-14-2025 End: 01-14-2025 ambulatory GAYLA CLINE Facility:[id number] Start: 01-14-2025 End: 01-14-2025 Patient encounter procedure Gayla Cline MD Work Phone: Urology Comment on above: Gross hematuria (Margarita dariel Dx); Left renal mass Start: 12-24-2024 End: 12-24-[address] Diana Salmeron MD Work Phone: [facility] Start: 12-24-2024 End: 12-24-2024 Patient encounter procedure Christina Whipple CEMETERY VAULT INSTALLER-C -[facility] Work Phone: Start: 12-18-2024 ambulatory Victor M DAVID Facility:[facility] Start: 12-18-2024 Registered Referred Victor M Rojas MD [facility] Start: 12-03-2024 End: 12-03-[address] Diana Salmeron MD Work Phone: [facility] Start: 12-03-2024 End: 12-03-[address] Victor M Rojas MD [facility] Work Phone: Start: 11-20-2024 ambulatory Victor M DAVID Facility:[facility] Start: 11-20-2024 [facility] Start: 11-07-2024 End: 11-07-[address] Diana Salmeron MD Work Phone: [facility] Start: 11-07-2024 End: 11-07-2024 Departed Referred Christina Whipple CEMETERY VAULT INSTALLER- -[facility] Start: 11-07-2024 Registered Referred Christina quiles CEMETERY VAULT INSTALLER- -[facility] Start: 11-07-2024 End: 11-07-2024 ambulatory Christina Whipple OLS Facility:[facility] Start: 10-23-2024 End: 10-23-[address] Diana Salmeron MD Work Phone: [facility] Work Phone: Start: 10-23-2024 End: 10-23-2024 Departed Referred Victor M Rojas MD -[facility] Start: 10-23-2024 End: 10-23-2024 ambulatory Victor M DAVID Facility:[facility] Start: 10-16-2024 End: 10-16-2024 Patient encounter procedure Lauren Hutchison [place] -[facility] Work Phone: Start: 10-16-2024 End: 10-16-2024 ambulatory Diana Salmeron Facility:[facility] Start: 10-15-2024 End: 10-16-2024 Emergency department patient visit Dr. Diana Salmeron MD Work Phone: -Emergency Department Work Phone: Start: 10-04-2024 End: 12-04-2024 Follow-up encounter Nikolai Connor PA-C Work Phone: Urology Start: 10-01-2024 End: 10-04-2024 Telephone encounter Nikolai Connor PA-C Work Phone: Urology Start: 10-01-2024 End: 10-01-2024 ambulatory NIKOLAI CONNOR Facility:[facility] Start: 10-01-2024 End: 10-01-2024 Patient encounter procedure Nikolai Connor PA-C Work Phone: Urology Comment on above: Gross hematuria (Margarita dariel Dx); Screening for genitourinary condition Start: 09-24-2024 End: 09-24-[address] Diana Salmeron MD Work Phone: [facility] Work Phone: Start: 09-24-2024 End: 09-24-[address] Victor M Rojas MD -[facility] Work Phone: Start: 09-18-2024 End: 09-18-[address] Diana Salmeron MD Work Phone: [facility] Work Phone: Start: 09-18-2024 End: 09-18-2024 Departed Referred [facility] Start: 09-18-2024 Registered Referred [facility] Start: 09-18-2024 End: 09-18-2024 ambulatory Victor M DAVID Facility:[facility] Start: 09-06-2024 End: 09-06-2024 Patient encounter procedure Kacie GARLAND -[facility] Work Phone: Start: 09-06-2024 End: 09-06-2024 ambulatory Diana Salmeron Facility:[facility] Start: 09-05-2024 End: 09-05-2024 ambulatory Christina Whipple Facility:[facility] Start: 09-05-2024 End: 09-05-2024 Patient encounter procedure Christina Whipple [facility] Work Phone: Start: 09-03-2024 End: 09-03-2024 ambulatory [facility] Facility:[facility] Start: 09-03-2024 End: 09-03-2024 Patient encounter procedure Christina Whipple [facility] Work Phone: Start: 08-21-2024 End: 08-21-[address] Diana Salmeron MD Work Phone: [facility] Work Phone: Start: 08-21-2024 End: 08-21-2024 [facility] Start: 08-21-2024 End: 08-21-2024 ambulatory Butros Latouf Facility:[facility] Start: 08-01-2024 ambulatory Butros Latouf Facility: [facility] Start: 08-01-2024 [facility] Start: 07-30-2024 ambulatory Butros Latouf Facility: [facility] Start: 07-24-2024 ambulatory Butros Latouf Facility: [facility] Start: 07-24-2024 [facility] Start: 07-23-2024 End: 07-23-2024 ambulatory Butros Latouf Facility:[facility] Start: 07-23-2024 End: 07-23-[address] Victor M Rojas MD -[facility] Work Phone: Start: 07-05-2024 End: 07-05-2024 ambulatory Butros Latouf Facility:[facility] Start: 07-05-2024 End: 07-05-2024 Patient encounter procedure Christina RIVERA -[facility] Work Phone: Start: 07-02-2024 End: 07-02-2024 ambulatory Nikolai Connor PA-C Work Phone: Urology Comment on above: CT urogram results Start: 07-02-2024 End: 07-02-2024 E-mail encounter from caregiver Nikolai Connor PA-C Work Phone: Urology Start: 06-28-2024 End: 06-28-2024 ambulatory NIKOLAI CONNOR Facility:[facility] Start: 06-28-2024 End: 06-28-2024 Subsequent hospital visit by physician Clare [facility] ([facility]) Work Phone: Cat Scan Comment on above: Gross hematuria [R31 .0] Start: 06-27-2024 ambulatory Butros Latouf Facility: [facility] Start: 06-27-2024 [facility] Start: 06-21-2024 End: 07-09-2024 Telephone encounter Nikolai Connor PA-C Work Phone: Urology Comment on above: Results Start: 06-20-2024 ambulatory Butros Latouf Facility: [facility] Start: 06-20-2024 Registered Referred [facility] Start: 06-18-2024 End: 06-18-2024 ambulatory NIKOLAI CONNOR Facility:[facility] Start: 06-18-2024 End: 06-18-2024 Patient encounter procedure Nikolai Connor PA-C Work Phone: Urology Comment on above: Screening for genito urinary condition (Primary Dx); Gross hematuria; Left renal mass Start: 06-17-2024 End: 06-17-2024 Patient encounter procedure Christina RIVERA -[facility] Work Phone: Start: 06-17-2024 End: 06-17-2024 ambulatory Butros Latouf Facility:[facility] Start: 06-17-2024 Registered Referred [facility] M [facility] Start: 06-06-2024 End: 06-06-2024 Patient encounter procedure Kacie GARLAND [facility] Work Phone: Start: 06-06-2024 End: 06-06-2024 ambulatory Butros Latouf Facility:[facility] Start: 05-21-2024 End: 05-22-2024 ambulatory Victor M DAVID Facility:[facility] Start: 05-08-2024 End: 05-08-2024 ambulatory Butros Latouf Facility:[facility] Start: 04-24-2024 End: 04-24-2024 ambulatory Victor M DAVID Facility:[facility] Start: 01-08-2024 End: 01-08-[address] KENNY CHUA MD Facility:[facility] Start: 04-13-2023 Emergency department patient visit VALENTIN SUMMERS [facility] Start: 03-27-2023 Telephone encounter Urology (History ) [facility] Start: 02-08-2023 End: 02-08-[address] Dexter Reyes Work Phone: [facility] Work Phone: Start: 02-08-2023 End: 02-08-[address] Dexter Reyes Work Phone: [facility] Work Phone: Start: 01-30-2023 End: 01-30-[address] Dexter Reyes Work Phone: [facility] Work Phone: Start: 01-30-2023 End: 01-30-[address] Dexter Reyes Work Phone: [facility] Work Phone: Start: 01-11-2023 End: 01-11-[address] Dexter Reyes Work Phone: [facility] Work Phone: Start: 12-17-2022 Non-patient / Non-visit Dr. Robel Reyes Work Phone: [facility] Work Phone: Start: 12-16-2022 Non-patient / Non-visit [facility] Start: 12-16-2022 Non-patient / Non-visit Dr. Robel Reyes Work Phone: [facility] Work Phone: Start: 12-15-2022 Non-patient / Non-visit Dr. Robel Reyes Work Phone: [facility] Start: 12-15-2022 Non-patient / Non-visit Dr. Robel Reyes Work Phone: [facility] Start: 12-15-2022 Non-patient / Non-visit Dr. Robel Reyes Work Phone: [facility] Work Phone: Start: 12-14-2022 End: 12-17-2022 Evaluation and management of inpatient Dr. Dexter Reyes Work Phone: [facility] Work Phone: Start: 12-14-2022 End: 01-08-2024 Pre-admission assessment DR KENNY CHUA MD [facility] Start: 12-14-2022 Non-patient / Non-visit Dr. 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 General Surgery Comment on above: Arrived Start: 11-13-2020 ambulatory DEXTER-CHI ERIC Facility:[facility] Start: 09-09-2020 ambulatory [facility] Facility:[facility] Procedures Date Procedure Procedure Detail Performing [...] Start: 09-01-2022 End: 09-01-2022 Computerized ophthalmic imaging tanmay Phelps MD Work Phone: Start: 01-05-2022 Coronary [...] on above: Performed By: #### MAG #### [place] [address] Start: 06-19-[address] KARL BARRERA MD [...] DTaP,Tdap,Td Vaccine (2 - Td or Tdap) [facility] Start: 02-17-2025 Influenza vaccination [facility] Start: 01-14-2025 End: 01-14-2025 Patient encounter procedure 01/14/2025 9:15 AM EDT Office Visit Urology [address] [place] [address] Gayla Cline MD [address] [place] [address]Mooney LUCINA referral for cysto Urology Comment on above: WILL BE ON Dr.Mooney LUCINA referral for c ysto Start: 11-08-2024 End: 11-08-2024 Patient encounter procedure 11/08/2024 8:15 AM EDT Office Visit Urology [address] [place] [address] Gayla Cline MD [address] [place], [place] [id number] referral for cysto Urology Comment on above: referral for cysto Start: 10-15-2024 End: 10-15-2024 [facility] Start: 07-02-2024 Cystourethroscopy CYSTO.PANENDO Procedures Routine Gross hematuria Expected: 07/02/2024 (Approximate) [facility] Comment on above: Expected: 07/02/2024 (Approximate) Start: 06-28-2024 End: 06-28-2024 Patient encounter procedure 06/28/2024 1:20 PM EST Appointment Cat Scan [address] [place], [place] [address] Gross hematuria [R31.0] Cat Scan Comment on above: Gross hematuria [R31.0] Start: 06-25-2024 End: 09-24-2024 CREATININE BLD CREATININE BLD Lab Routine Screening for genitourinary condition Gross hematuria Expected: 06/25/2024 (Approximate), Expires: 09/24/2024 [facility] Comment on above: Expected: 06/25/2024 (Approximate), Expi res: 09/24/2024 Start: 06-25-2024 End: 07-19-2025 CT Kidney WO and W contrast IV CT UROGRAM WO/W IVCON Radiology Routine Gross hematuria Expected: 06/25/2024, Expires: 07/19/2025 [facility] Comment on above: Expected: 06/25/2024, Expires: Start: 06-19-2024 Advance Directive Discussion Advance Directive Discussion [facility] Start: 06-19-2024 Medicare Advantage Annual Wellness Visit Medicare [facility] Annual Wellness Visit [facility] Start: 02-18-2024 Covid-19 Vaccine ( season) Covid-19 Vaccine ( season) [facility] Start: 02-18-2024 Influenza vaccination Influenza Vaccine (#1) [facility] Start: 09-02-2023 Glaucoma screening Dilated Retinal Exam [facility] Start: 09-02-2023 Hepatitis C antibody, confirmatory test DILATED RETINAL EXAM [facility] Start: 08-13-2023 Hemoglobin A1c measurement HbA1C [facility] Start: 08-13-2023 Hemoglobin A1c/Hemoglobin.total in Blood HbA1C [facility] Start: 06-19-2023 Advance Directive Discussion Advance Directive Discussion [facility] Start: 02-17-2023 Influenza vaccination Influenza Vaccine (#1) [facility] Start: 02-15-2023 Hepatitis B screening URINE ALBUMIN:CREATININE RATIO [facility] Start: 12-17-2022 Patient discharge [facility] Start: 12-16-2022 Dietary regime [facility] Start: 12-16-2022 Catheterization of vein [facility] Start: 12-16-2022 Vital signs measurements [facility] Start: 12-15-2022 [facility] Start: 12-15-2022 Consultation [facility] Start: 12-14-2022 Admission procedure [facility] Start: 12-14-2022 Wound care [facility] Start: 12-14-2022 Consultation for treatment [facility] Start: 12-14-2022 Catheterization of vein [facility] Start: 12-14-2022 Following clinical pathway protocol [facility] Start: 12-14-2022 Admission procedure [facility] Start: 12-14-2022 Assessment of risk of venous thromboembolism [facility] Start: 12-14-2022 Care regimes management [facility] Start: 12-14-2022 Insertion of catheter into peripheral vein [facility] Start: 12-14-2022 Providing care according to standard [facility] Start: 12-14-2022 Provision of activity privileges [facility] Start: 12-14-2022 Fall prevention [facility] Start: 12-14-2022 Introduction of urinary catheter [facility] Start: 12-14-2022 Oxygen therapy [facility] Start: 12-14-2022 Referral to occupational therapist [facility] Start: 12-14-2022 Referral to service [facility] Start: 12-14-2022 Measuring intake and output [facility] Start: 12-14-2022 Referral to gastroenterology service [facility] Start: 12-14-2022 Referral to general surgeon [facility] Start: 12-14-2022 Inhalation therapy procedure [facility] Start: 12-14-2022 Patient referral to dietitian [facility] Start: 12-14-2022 End: 12-14-2022 [facility] Start: 10-11-2022 Hemoglobin A1c/Hemoglobin.total in Blood HBA1C [facility] Start: 08-07-2022 Covid-19 Vaccine (6 - Moderna series) Covid-19 Vaccine (6 - Moderna series) [facility] Start: 06-19-2022 ADVANCE DIRECTIVE DISCUSSION ADVANCE DIRECTIVE DISCUSSION [facility] Start: 06-19-2022 DEPRESSION ASSESSMENT DEPRESSION ASSESSMENT [facility] Start: 02-17-2022 Influenza vaccination INFLUENZA (Season Ended) [facility] Start: 06-19-2021 ADVANCE DIRECTIVE DISCUSSION ADVANCE DIRECTIVE DISCUSSION [facility] Start: 03-17-2021 End: 03-17-2021 Patient encounter procedure 03/17/2021 Office Visit Ophthalmology Ammy Vicente MD [address] [place] [address] [facility] Start: 02-17-2021 Influenza vaccination [facility] (#1[facility] Phone[facility] Start: 02-17-2021 End: 02-17-2021 Patient encounter procedure 02/17/2021 Office Visit Ophthalmology Ammy Vicente MD [address] [place] [address] [facility] Start: 02-10-2021 End: 02-10-2021 Patient encounter procedure 02/10/2021 Office Visit Ophthalmology Ammy Vicente MD [address] [place] [address] [facility] Start: 08-15-2020 Hemoglobin A1c/Hemoglobin.total in Blood HBA1C [facility] Start: 2016 RSV Vaccine (1 - 1-dose 75+ series) RSV Vaccine (1 - 1-dose 75+ series) [facility] Start: 2006 Pneumococcal 65+ years Vaccine (1 of 1 - PPSV23) Pneumococcal 65+ years Vaccine (1 of 1 - PPSV23) [facility] Work Phone: Start: 2001 Hepatitis B Vaccine (1 of 3 - Risk 3-dose series) Hepatitis B Vaccine (1 of 3 - Risk 3-dose series) [facility] Start: 1991 Shingles Vaccine (1 of 2) Shingles Vaccine (1 of 2) [facility] Work Phone: Start: 1991 SHINGRIX VACCINE (1 of 2) SHINGRIX VACCINE (1 of 2) [facility] Start: 1960 DTaP/Tdap/Td vaccine (1 - Tdap) DTaP/Tdap/Td vaccine (1 - Tdap) [facility] Work Phone: Start: 1960 Pneumococcal Vaccine: 50+ (1 of 2 - PCV) Pneumococcal Vaccine: 50+ (1 of 2 - PCV) [facility] Start: 1960 Urine microalbumin profile [facility] tony Start: 1959 ANNUAL PCP TEAM CHRONIC DISEASE VISIT ANNUAL PCP TEAM CHRONIC DISEASE VISIT [facility] Start: 1959 Anxiety Screening Anxiety Screening [facility] Start: 1959 BP CONTROLLED (<130/80) BP CONTROLLED (<130/80) [facility] Start: 1959 Depression Screening Depression Screening [facility] Start: 1959 Hepatitis B surface antibody level LDL CHOLESTEROL [facility] Start: 1953 Adult depression screening assessment DEPRESSION SCREENING [facility] Start: 1953 COVID-19 Vaccine (1) COVID-19 Vaccine (1) [facility] Work Phone: Start: 1951 3 comp foot exam completed DIABETIC FOOT EXAM [facility] tony Start: 1951 Diabetic foot examination Diabetic Foot Exam [facility] Start: 1951 Hepatitis B screening URINE ALBUMIN:CREATININE RATIO [facility] Start: 1951 Hepatitis C antibody, confirmatory test DILATED RETINAL EXAM [facility] Start: 1951 Lipid panel Lipid screen [facility] Work Phone: Start: 1947 Pneumococcal Vaccine: 65+ (1 - PCV) Pneumococcal Vaccine: 65+ (1 - PCV) [facility] Start: 1947 PNEUMOCOCCAL: 65+ (1 - PCV) PNEUMOCOCCAL: 65+ (1 - PCV) [facility] Start: 1946 COVID-19 VACCINE (#1) COVID-19 VACCINE (#1) [facility] Start: 1941 Creatinine measurement Creatinine monitoring [facility] Work Phone: Start: 1941 Hepatitis C screening Hepatitis C screen [facility] Work Phone: Start: 1941 Potassium monitoring Potassium monitoring [facility] Work Phone: Start: 1941 Thyroid stimulating hormone measurement TSH testing [facility] Work Phone: Bacteria identified in Urine by Culture [facility] Comment on above: Ordered: 06/18/2024 Bacteria identified in Urine by Culture BACTERIAL CULTURE, URINE Microbiology Routine Gross hematuria 10/01/2024 3:36 PM EDT [facility] Blood glucose - POCT [facility] Work Phone: Comment on above: As Needed until discontinued starting End: 02-09-2021 Creatinine [Mass/volume] in Serum or Plasma Creatinine, serum Lab STAT One Time for 1 Occurrences starting 02/09/2021 until 02/09/2021 [facility] Work Phone: Comment on above: One Time for 1 Occurrences starting 01/18 until 02/09/2021 CT Kidney WO and W contrast IV CT UROGRAM WO/W IVCON Radiology Routine Gross hematuria 06/28/2024 2:26 PM EST [facility] Work Phone: End: 11-03-2025 CT Kidney WO and W contrast IV CT UROGRAM WO/W IVCON Radiology Routine Gross hematuria 1 Occurrences starting 10/04/2024 until 11/03/2025 [facility] Work Phone: Comment on above: 1 Occurrences starting 10/04/2024 until 11/03/2025 Cystourethroscopy CYSTO.PANENDO Procedures Routine Gross hematuria Ordered: 10/01/2024 [facility] Comment on above: Ordered: 10/01/2024 CYTOLOGY NON-PRODUCE ASSISTANT [place] Jamar cruz Comment on above: Ordered: 06/18/2024 End: 02-09-2021 Intermittent pulse oximetry Pulse Oximetry Spot Check Respiratory Care Routine One Time for 1 Occurrences starting 02/09/2021 until 02/09/2021 [facility] Work Phone: Comment on above: One Time for 1 Occurrences starting 01/18 until 02/09/2021 Nasal Cannula Oxygen Nasal Cannu la Oxygen Respiratory Care Routine As Needed until discontinued starting 02/09/2021 [facility] Work Phone: Comment on above: As Needed until discontinued starting Nonrebreather mask oxygen Nonreb reather mask oxygen Respiratory Care Routine As Needed until discontinued starting 02/09/2021 [facility] Work Phone: Comment on above: As Needed until discontinued starting Oxygen therapy [[facility]ini [facility] Data Set] [facility] Work Phone: Comment on above: Daily until discontinued starting 2020 As Needed until disc ontinued starting 02/09/2021 Patient Education ED Eye Contusi on ED Head Injury (Adult) ED Skin Tear (Skin Avulsion) [facility] Work Phone: Patient referral [facility] Work Phone: POST VOID RESIDUAL POST VOID RES IDUAL Procedures Routine Gross hematuria Screening for genitourinary condition Ordered: 10/01/2024 [facility] Work Phone: Comment on above: Ordered: 10/01/2024 End: 02-09-2021 Potassium w/ Reflex to Magnesium Potassium w/ Reflex to Magnesium Lab Routine One Time for 1 Occurrences starting 02/09/2021 until 02/09/2021 [facility] Work Phone: Comment on above: One Time [...] for 1 Occurrences starting 02/09/2021 until 02/09/2021 [facility] Work Phone: Comment on above: One Time for 1 Occurrences starting 01/18 until 02/09/2021 Spirometry panel Incentive arthur metry Respiratory Care Routine Q1H PRN until discontinued starting 02/09/2021 [facility] Work Phone: Comment on above: Q1H PRN until discontinued starting 01/18 UA DIP, URINE (POC) UA DIP, URIN E (POC) Lab Routine Screening for genitourinary condition Ordered: 06/18/2024 [facility] Work Phone: Comment on above: Ordered: 06/18/2024 Immunizations Immunization Date Immunization Notes Care Provider [facility] 10-15-2024 tetanus toxoid, reduced diphtheria toxoid, and acellular pertussis vaccine, adsorbed Dr. Diana Salmeron MD Work Phone: [facility] 03-19-2022 influenza virus vaccine, unspecified formulation Urology (History) [facility] 10-25-2021 Covid (Pfizer) Dr. Dexter Reyes Work Phone: [facility] 05-21-2021 influenza virus vaccine, unspecified formulation DR KARL BARRERA MD [facility] 05-21-2021 SARS-CoV-2 (COVID-19 ) mRNA-[address] KARL BARRERA MD [facility] 03-10-2021 influenza virus vaccine, unspecified formulation DR KARL BARRERA MD [facility] 10-13-2020 SARS-CoV-2 (COVID-19 ) mRNA-12[address] KARL BARRERA MD [facility] Comment on above: Result Comment: 2021: TPV3 09-15-2020 SARS-CoV-2 (COVID-19 ) mRNA-[address] KARL BARRERA MD [facility] Comment on above: Result Comment: 2021: TPV3 03-22-2020 influenza virus vaccine, unspecified formulation DR KARL BARRERA MD [facility] 02-18-2020 influenza virus vaccine, unspecified formulation DR KARL BARRERA MD [facility] 03-18-2019 influenza, injectabl e, quadrivalent, preservative free Dr. Diana Salmeron MD Work Phone: [facility] 03-18-2019 influenza, seasonal, injectable Dr. Dexter Reyes Work Phone: [facility] 03-04-2019 influenza virus vaccine, unspecified formulation DR KARL BARRERA MD [facility] 02-22-2017 influenza virus vaccine, unspecified formulation DR KARL BARRERA MD [facility] Payers Date Payer Category Payer Medicare (Managed Care) [facility] MEDICARE [id number] 2024 Self-pay [id number] 2020 Medicare [id number] 2019 Private Health Insurance [id number]. [id number] 2019 Medicaid [id number] 2019 Medicaid [id number] 2015 Medicare [facility] MEDICARE [id number] 2006 Medicare [id number] 2006 Medicare [id number] 1941 Unknown [id number] 2.840.1.179396.3.579.2. 594 1941 Unknown [id number] 2.16840.1.509933.3.579.2. 594 1941 Unknown [id number] .840.1.892645.3.579.2. 594 1941 Unknown [id number] 2.16.840.1.368068.3.579.2. 627 1941 Unknown [id number] 2.840.1.781324.3.579.2. 651 Medicare [id number] Unknown [id number] 2.16.840.1.604635.3.579.2. 462 Unknown [id number] 2.16.840.1.520168.3.579.2. 462 Unknown [id number] 2.16.840.1.999262.3.579.2. 462 Unknown [id number] 2.16.840.1.346770.3.579.2. 462 Unknown [id number] 2.16.840.1.756256.3.579.2. 462 Unknown [id number] 2.16.840.1.357259.3.579.2. 462 Unknown [id number] 2.16.840.1.142389.3.579.2. 462 Unknown [id number] 2.16.840.1.573473.3.579.2. 462 Unknown [id number] 2.16.840.1.597411.3.579.2. 462 Unknown [id number] 2.16.840.1.503302.3.579.2. 462 Unknown [id number] 2.16.840.1.011473.3.579.2. 462 Unknown [id number] 2.16.840.1.606239.3.579.2. 462 Unknown [id number] 2.16840.1.582776.3.579.2. 462 Unknown [id number] 2.16.840.1.084713.3.579.2. 462 Unknown [id number] 2.16.840.1.645649.3.579.2. 462 Unknown [id number] 2.16.840.1.322326.3.579.2. 462 Unknown [id number] 2.16.840.1.381335.3.579.2. 462 Unknown [id number] 2.16840.1.555897.3.579.2. 462 Unknown [id number] 2.16.840.1.232555.3.579.2. 462 Unknown [id number] 2.16.840.1.274230.3.579.2. 462 Unknown [id number] 2.16.840.1.204979.3.579.2. 462 Unknown [id number] 2.16.840.1.447588.3.579.2. 462 Unknown [id number] 2.16.840.1.083921.3.579.2. 462 Unknown [id number] 2.16.840.1.656397.3.579.2. 462 Unknown [id number] 2.16.840.1.905954.3.579.2. 462 Unknown [id number] 2.16.840.1.066715.3.579.2. 462 Unknown [id number] 2.16.840.1.069666.3.579.2. 462 Unknown [id number] 2.16.840.1.877257.3.579.2. 462 Unknown [id number] 2.16.840.1.991045.3.579.2. 462 Unknown [id number] 2.16.840.1.080783.3.579.2. 462 Unknown [id number] Unknown [id number] 462 Unknown [id number] 462 Unknown [id number] 462 Unknown [id number] 462 Unknown [id number] 462 Unknown [id number] 462 Unknown [id number] 462 Social History Date Type Detail Facility Start: 02-09-2021 End: 10-15-2024 Tobacco smoking status [facility] Former smoker [facility] Start: 02-09-2021 End: 01-14-2025 Alcohol intake Current drinker of alcohol (finding) [employer] Phone: Start: 02-02-2021 Alcohol Comment occassional ETOH use, not on a daily basis [facility] Work Phone: Start: 1940 Sex Assigned At Not on file [facility] Work Phone: Exposure to SARS-CoV -2 (event) Not sure [facility] Start: 12-14-2022 Tobacco smoking status NHIS Tobacco smoking consumption unknown [facility] Start: 05-15-2020 History SDOH Alcohol Frequency 2 [facility] Start: 05-15-2020 History SDOH Alcohol Std Drinks 1 [facility] Start: 12-10-2019 History SDOH Financial 4 [facility] Start: 1940 Sex Assigned At Male [facility] Start: 01-08-1960 End: 01-07-1990 History of tobacco use Current smoker [facility] Work Phone: Start: 01-08-1960 End: 01-07-1990 History of tobacco use Cigarette Smoker [facility] Work Phone: Start: 05-15-2020 End: 05-05-2023 Cigarettes smoked current (pack per day) - Reported 1 [facility] Work Phone: Start: 05-15-2020 End: 06-18-2024 Tobacco use and exposure Smokeless tobacco non-user [facility] Work Phone: Start: 09-05-2019 End: 05-05-2023 Tobacco Comment STOPPED 28 YEARS AGO [facility] Start: 09-05-2019 Alcohol Comment OCCASIONAL [facility] Start: 09-12-2019 Heavy [facility] Start: 09-12-2019 None [facility] Start: 11-23-2019 - [facility] Start: 12-18-2019 Non-smoker [facility] Start: 05-15-2020 End: 05-05-2023 Alcohol Use Disorder Identification Test - Consumption [AUDIT-C] [facility] Work Phone: How often to you hav e a drink containing alcohol? Monthly or less [facility] Work Phone: How many standard dr inks containing alcohol do you have on a typical day? 1 or 2 [facility] Work Phone: Frequency of Binge Drinking Not on file [facility] How hard is it for y ou to pay for the very basics like food, housing, medical care, and heating Not very hard [facility] (I/We) worried monae er (my/our) food would run out before (I/we) got money to buy more. DK or Refused [facility] Start: 09-20-2024 End: 10-16-2024 Sex Male (finding) [facility] Medical Equipment Procedure Code Equipment Code Equipment Origin al Text Equipment Identifier Dates ERCP (endoscopic retrograde cholangiopancreatog lalit) ([id number]) Polymeric biliary stent, non-bioabsorbable [id number] FDA Start: 12-15-2022 Patch Xenosure Bovine Pericardial Tissue 8x.8cm Vascular Sterile - [id number] Start: 09-02-2019 Goals Date Patient Goal Desired Activity /State Functional Status Date Assessment Result Facility 12-17-2022 Functional status Bedrest [facility] Work Phone: 12-16-2022 Functional status Tolerates Activity Fair [facility] Work Phone: 01-13-2022 Functional Status Room check performed [facility] 01-13-2022 Functional Status [facility] 01-13-2022 Functional Status [facility] 01-13-2022 Functional Status [facility] 01-13-2022 [facility] Functional Status [facility] 01-12-2022 Functional Status [facility] 01-12-2022 Functional Status 50 [facility] 01-12-2022 Functional Status [facility] 01-12-2022 Functional Status Bed Bath Refused [facility] 01-12-2022 Functional Status bilateral knee high [facility] 01-12-2022 Functional Status padded oxygen tubing [facility] 01-11-2022 Functional Status Linen Change Done [facility] 01-11-2022 [facility] 01-10-2022 Functional Status [facility] 01-10-2022 Functional Status [facility] 01-10-2022 Functional Status Shampoo/Body w abdirashid (no rinse), CHG bath [facility] 01-10-2022 Functional Status [facility] 01-09-2022 Functional Status [facility] 01-09-2022 Functional Status [facility] 01-08-2022 Functional Status [facility] 01-07-2022 Functional Status Transfer Bed t o/from Chair Total 2 [facility] 01-07-2022 Functional Status Supervised 3 [facility] 01-07-2022 Functional Status Hair Care Maximum paola tance [facility] 01-07-2022 Functional Status Fluid Restriction Maint ained [facility] 01-06-2022 Functional Status [facility] 01-05-2022 Functional Status Special Call D candida Unable to use call device [facility] 01-05-2022 Functional Status [facility] 01-05-2022 Functional Status [facility] 01-05-2022 Functional Status Patient Identi fied Identification band, Verbal [facility] 01-04-2022 Functional Status Skin Care Done [facility] 01-03-2022 Functional Status [facility] 01-01-2022 Functional Status [facility] 12-30-2021 Functional Status Living Situati on Mcfp Unit [facility] 12-30-2021 Functional Status Sensory Defici ts Blind, left eye, Blind, right eye [facility] 12-11-2019 Are you deaf, or do you have serious difficulty hearing No 12/11/2019 4:18 PM Josefa Graves RN No [facility] 12-11-2019 Are you blind, or do you have serious difficulty seeing, even when wearing glasses No 12/11/2019 4:18 PM Josefa Graves, YURI No [facility] 12-11-2019 Do you have serious difficulty walking or climbing stairs Yes 12/11/2019 4:18 PM Josefa Graves, YURI Yes [facility] 12-11-2019 Do you have difficul ty dressing or bathing No 12/11/2019 4:18 PM Josefa Graves, YURI No [facility] 12-11-2019 Because of a physica l, mental, or emotional condition, do you have difficulty doing errands alone such as visiting a physician's office or shopping Yes 12/11/2019 4:18 PM EDT Josefa Mason, YURI Yes [facility] Mental Status Date Assessment Result Facility 12-17-2022 Cognitive function Voice/Name Wolf Roldan [facility] Work Phone: 01-13-2022 Mental Status Orientation Oriented x 4 [facility] 01-13-2022 Mental Status [facility] 01-12-2022 Mental Status [facility] 01-12-2022 Mental Status [facility] 01-11-2022 Mental Status [facility] 12-11-2019 Because of a physica l, mental, or emotional condition, do you have serious difficulty concentrating, remembering, or making decisions No 12/11/2019 4:18 PM EDT Josefa Mason RN No [facility] Clinical Notes 02-09-2021 to 01-14-2025 Gayla Cline MD - 01/14/2025 10:45 AM Gayla Banuelos MD - 01/14/2025 10:44 AM Gayla Banuelos MD - 01/14/2025 10:44 AM EDT Note Date & Type Note Facility 01-14-2025 Note HNO ID: [id number] Author: GAYLA CLINE MD Service: ? Author [...] (Patient not taking: Reported on 01/14/2025) vit C,Y-Oa-sumge-lutein-zeaxan (PRESERVISION AREDS-2) 250-90-40-1 mg Take 1 Each [...] daily. (Patient n (more content not included)... 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 Dr. Montgomery in [place] Congestive heart failure (HCC) Diabetes mellitus (HCC) [...] Gayla Cline MD documented in this encounter [facility] 01-14-2025 Note HNO ID: [id number] Author: GAYLA CLINE MD Service: ? Author Type: Physician Type: Procedures Filed: 01/14/2025 10:48 Note Text: CYSTOSCOPY PROCEDURE NOTE : Elizabeth Modi is a 84 year old male who is here for cystoscopy PRE-OP/PRE-PROCEDURE DIAGNOSIS: h/o gross henaturia POST-OP/POST-PROCEDURE DIAGNOSIS: same SURGERY/PROCEDURE(S): Cystoscopy Pt ID verified with patient: Yes Procedure verified with patient: Yes Procedure confirmed with physician and behaviour support teacher: Yes UNIVERSAL PROTOCOL / SAFETY CHECKLIST Procedure [...] meaning may be extrapolated by contextual derivation. [facility] 01-14-2025 Procedure note CYSTOSCOPY PROCEDURE NOTE : Elizabeth Modi is a 84 year old male who is here for cystoscopy PRE-OP/PRE-PROCEDURE DIAGNOSIS: h/o gross henaturia POST-OP/POST-PROCEDURE DIAGNOSIS: same SURGERY/PROCEDURE(S): Cystoscopy Pt ID verified with patient: Yes Procedure verified with patient: Yes Procedure confirmed with physician and behaviour support teacher: Yes UNIVERSAL PROTOCOL / SAFETY CHECKLIST Procedure [...] meaning may be extrapolated by contextual derivation. [facility] 01-14-2025 Procedure note CYSTOSCOPY PROCEDURE NOTE : Elizabeth Modi is a 84 year old male who is here for cystoscopy PRE-OP/PRE-PROCEDURE DIAGNOSIS: h/o gross henaturia POST-OP/POST-PROCEDURE DIAGNOSIS: same SURGERY/PROCEDURE(S): Cystoscopy Pt ID verified with patient: Yes Procedure verified with patient: Yes Procedure confirmed with physician and behaviour support teacher: Yes UNIVERSAL PROTOCOL / SAFETY CHECKLIST Procedure [...] by contextual derivation. documented in this encounter [facility] 10-16-2024 Evaluation note Diagnosis Onset Date Resolution Atherosclerotic heart disease of [place] coronary artery without angina pectoris chronic October 16, 2024 7:59am Essential hypertension chronic Ap 2024 7:59am Hyperlipidemia chronic September 7:59am Paroxysmal atrial fibrillation chronic October 16, 2024 7:59am [facility] Work Phone: 1(161) 452-311904-29-2025 Discharge summary [facility] Medical Records Department [address] [place] [address] Emergency Department Summary 10/15/24 MR#: [id number] Acct: [id number] Name: ELIZABETH MODI Rep #:[id number] : 1940 84 From: Jesse Griffith PCP: Dr. Diana Salmeron MD Status:[facility] ER Location: ED HPI HPI - Fall [...] of his last tetanus. 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 Call [facility] ([phone]) or report tothe closest Emergency Room. Call 911 if necessary. 10/15/242344 Cosigner Signature (if applicable): CC: Dr. Diana Salmeron MD ~ Signed [facility]04-29-2025 Radiology Diagnostic study note [facility] Imaging Services [address] [place] [address] [id number] Elbow min 3 Views MR#: [id number] Acct: [id number] Name: ELIZABETH MODI Rep #: [id number] : 1940 84 From: Franko Kapadia MD PCP: Dr. Diana Salmeron MD Status: [facility] ER Study:Elbow min 3 Views Date of Exam: Exam# [id number] Ordering Dr: Jesse Angel DO EXAM: Left elbow CLINICAL HISTORY: Injury, pain COMPARISON: None TECHNIQUE: Three views FINDINGS: No acute fracture or dislocation. Moderate joint space narrowing and osteophyte formation consistent with moderatearthrosis. Normal soft tissues. RAD/Elbow min 3 Views IMPRESSION: No acute fracture or dislocation. Moderate arthrosis. Reading Location: [facility] CC: Dr. Diana Salmeron MD; Dr. Jesse Angel DO ~ Ironing Pleater: Signed [facility]04-29-2025 Radiology Diagnostic study note [facility] Imaging Services [address] [place] [address] Orb Sella Post Fossa Ear w/o MR#: [id number] Acct: [id number] Name: ELIZABETH MODI Rep #: [id number] : 1940 M 84 From: Franko Kapadia MD PCP: Dr. Diana Salmeron MD Status: [facility] ER Study:Orb Sella Post Fossa Ear w/o Date of Ex am: 10/15/24 Exam# [id number] Ordering Dr: Jesse Angel DO PROCEDURE: ORB [...] ORBITAL FRACTURE OR RETROBULBAR HEMATOMA. Reading Location: [facility] CC: Dr. Diana Salmeron MD; Dr. Jesse Angel DO ~ Ironing Pleater: Signed [facility]04-29-2025 Discharge summary Author Jesse Angel [facility] Note Date/Time October 15, 2024 11: 45pm [facility] Medical Records Department [address] [place] [address] Emergency Department Summary 10/15/24 MR#: [id number] Acct: [id number] Name: ELIZABETH MODI Rep #:[id number] : 1940 84 From: Jesse Griffith PCP: [...] of his last tetanus. 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 Call [facility] ([phone]) or report to the closest Emergency Room. Call 911 if necessary. 10/15/242344 <Electronically signed by Jesse Angel DO> Cosigner Signature (if applicable): CC: Dr. Diana Salmeron MD ~ Signed [facility] Work Phone: 1(415) 673-655104-15-2025 Telephone encounter Note* Telephone Encounter - Yue Huffman - 10/01/2024 2:11 PM EDT May you please submit another order for for Urogram CT. When last appt was canceled the order was not removed from the appt. Sorry for the inconvenience. Marivel PSS [facility]04-15-2025 Miscellaneous Notes* Telephone Encounter - Yue Su - 10/01/2024 2:11 PM EDT May you please submit another order for for Urogram CT. When last appt was canceled the order was not removed from the appt. Sorry for the inconvenience. Marivel PSS [facility] Instructions* Patient Instructions* Nikolai Connor PA-C - 10/01/2024 1:46 PM EDT documented in [facility]04-[facility]-2025 NoteHNO ID: [id number] Author: NIKOLAI CONNOR PA-C Service: ? Author Type: Physician Medical Aides Teacher Type: Progress Notes Filed: 10/01/2024 14:58 Note Text: [facility] PATIENT CLINIC NOTE (M) Some [...] (ADULTS MULTIVITAMIN ORAL) Take by mouth. 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 Dr. Montgomery in [place] Congestive (more content not included)...[facility]04-15-2025 History of Present illness Narrative* Nikolai Connor PA-C - 10/01/2024 1:42 PM EDT Images from the original note were not included. [facility] EST PATIENT CLINIC NOTE (M) Some [...] (ADULTS MULTIVITAMIN ORAL) Take by mouth. 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 Dr. Montgomery in [place] Congestive heart failure (HCC) DM (diabetes mellitus) [...] cyanosis, or edema The patient or authorized appeals representative has verbally agreed to proceed with [...] cystoscopy (bladder scope) with Dr. Hawk at [facility] has been placed; please turn in the printed order with the [facility] so they can schedule your procedure. A [...] Plan: Appointment with Nikolai. [facility]2025 NoteHNO ID: [id number] Author: LUKE TAYLOR LPN Service: ? Author [...] tolerated the procedure well. Plan: Appointment with Nikolai.[facility]03-21-2025 Evaluation note* Diagnosis Onset Date Resolution Status Admit Date Fecal incontinence acute September 06, 2024 1:38pm S/P ERCP chronic September 06 1:38pm [facility] Work Phone: 1(908) 861-598303-21-2025 Evaluation note* Diagnosis Onset Date Resolution Status Admit Date Fecal incontinence acute September 06, 2024 1:38pm S/P ERCP chronic September 06 1:38pm Atherosclerotic heart diseas e of [place] coronary artery without angina pectoris chronic October 16, 2024 7:59am Essential hypertension chronic Ap 2024 7:59am Hyperlipidemia chronic September 7:59am Paroxysmal atrial fibrillation chron ic October 16, 2024 7:59am [facility] Work Phone: 1(521) 950-964101-21-2025 Telephone encounter Note* Telephone Encounter - Luke Taylor LPN - 07/09/2024 3:50 PM EST Letter sent to patient that we have not been able to contact [facility]. Luke Taylor LPN [facility]01-21-2025 Miscellaneous Notes* Telephone Encounter - Luke [...] rest of the testing JAJA Stewart, TU DIZA documented in [facility] encounterR[facility]01-[facility]25 Telephone encounter Note * Telephone Encounter - Luke Taylor LPN - 07/09/2024 3:47 PM EST Called [facility]. No answer- left message to call clinic. Luke Taylor LPN [facility]01-17-2025 Telephone encounter Note* Telephone Encounter - Luke Taylor LPN - 07/05/2024 4:27 PM EST Called [facility]. No answer- left message to call clinic. Luke Taylor LPN [facility]01-14-2025 Telephone encounter Note* Telephone Encounter - Nayeli Dominguez - 07/02/2024 2:24 PM EST Left pt's daughter message to call & schedule cysto with Dr. Cline per Emily Connor. Delmi [facility]01-14-2025 Miscellaneous Notes* Telephone Encounter - Nayeli Dominguez - 07/02/2024 2:24 PM EST Left pt's daughter message to call & schedule cysto with Dr. Prakash Connor. Delmi documented in [facility] encounterR[facility]01-10-2025 History of Present illness Narrative* Reef Luke Thrasher, RT(R) - 06/28/2024 1:20 PM EST Radiology [...] PATIENT PRESENTS WITH AN IMPLANTABLE OR ATTACHED COCONUT JELLY ROLLER: No ALLERGIES: Reviewed and unchanged CONTRAST ALLERGY: [...] 2024 TIME: 1:57 PM documented in this encounterR[facility]01-10-2025 NoteHNO ID: [id number] Author: LUKE WHITMORE RT (R) Service: ? Author Type: Cash Management Coordinator Type: Progress Notes Filed: 06/28/2024 13:57 Note [...] PATIENT PRESENTS WITH AN IMPLANTABLE OR ATTACHED COCONUT JELLY ROLLER: No ALLERGIES: Reviewed and unchanged CONTRAST ALLERGY: [...] Modi DATE: June 28, 2024 TIME: 1:57 [facility]01-07-2025 Telephone encounter Note* Telephone Encounter - Susan Joy MA - 06/25/2024 8:46 AM EST LM for [facility] to contact office to inform. Susan Joy MA [facility]01-03-2025 Telephone encounter Note* Telephone Encounter - Anaid Payne MA - 06/21/2024 4:28 PM EST ----- Message from Nikolai Connor PA-C sent at 06/21/2024 3:54 PM EST ----- No infection in the urine No cancer cells in urine, please continue the rest of the testing JAJA Stewart, TU DIAZ [facility]12-31-2024 NoteHNO ID: [id number] Author: NIKOLAI CONNOR PA-C Service: ? Author Type: Physician Medical Aides Teacher Type: Progress Notes Filed: 06/18/2024 16:05 Note Text: [facility] NEW PATIENT CLINIC NOTE SERVICE DATE: June 18, 2024 NAME: Elizabeth Modi CHIEF COMPLAINT: Hematuria HISTORY OF PRESENT ILLNESS: Elizabeth Modi is a 83 year old male an new patient here for The patient reports Hematuria with a few episodes of hematuria Will get Urine sample today for culture and cytology Schedule Cystoscopy at [place] And CT Urogram at [place] We discussed the need for full hematuria [...] (ADULTS MULTIVITAMIN ORAL) Take by mouth. 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 Dr. Montgomery in [place] Congestive heart failure (HCC) DM (diabetes mellitus) (HCC) PCP follows Dyslipidemia Heart attack (HCC) HTN (hypertension) Hypercholesterolemia Hypothyroidism PVD (peripheral vascular disease) (HCC) Renal mass (more content not included)...[facility]12-31-20[facility] History of Present illness Narrative* Nikolai Connor PA-C - 06/18/2024 1:26 PM EST Images from the original note were not included. [facility] NEW PATIENT CLINIC NOTE SERVICE DATE: June 18, 2024 NAME: Elizabeth Modi CHIEF COMPLAINT: Hematuria HISTORY OF PRESENT ILLNESS: Elizabeth Modi is a 83 year old male an new patient here for The patient reports Hematuria with a few episodes of hematuria Will get Urine sample today for culture and cytology Schedule Cystoscopy at [facility] And CT Urogram at [place] We discussed the need for full hematuria [...] (ADULTS MULTIVITAMIN ORAL) Take by mouth. vit C,D-Vw-scpso-lutein-zeaxan (PRESERVISION AREDS-2) 250-90-40-1 mg Take 1 Each [...] kidney disease no dialysis. Dr. Montgomery in [place] Congestive heart failure (HCC) DM (diabetes mellitus) [...] JAJA Stewart MT, PA-C documented in this encounterRivers[facility]12-[facility]-2024 Evaluation note* Diagnosis Onset Date Resolution Status Admit Date Fecal incontinence acute Decemb er 2023 3:30pm S/P ERCP chronic June 06, 2024 3:30pm Fecal incontinence acute September 06, 2024 1:38pm S/P ERCP chronic September 06 1:38pm [facility] Work Phone: 1(357) 131-849802-18-2024 Note. MICRO - Microbiology PROCEDURE: Blood Culture [...] Locations *1: This test was performed at: [facility], [address] [place] [address], [facility] , [facility]08-04-2023 Note. MICRO - Microbiology PROCEDURE: Blood Culture [...] Locations *1: This test was performed at: [address], [address] [place] [address] ([facility]04-16-2023 Note. MICRO - Microbiology PROCEDURE: Culture Wound [...] Locations *1: This test was performed at: [address], [address] [place] [address] ([place])03-27-2023 Miscellaneous Notes* Telephone Encounter - Ammy Bradshaw - 03/27/2023 1:44 PM EDT Referral received M for [place] to call and schedule appt. Ammy Bradshaw documented [facility]23 Miscellaneous Notes* Telephone Encounter - Quan Iraheta DO - 09/06/2022 5:03 PM EDT Spoke with patient's nurse at [facility]. Counseled to taper prednisone by 2.5mg weekly [...] agreement with the plan. documented in this encounterR[facility]03-21-2023 Miscellaneous Notes* Telephone Encounter - Quan Iraheta DO - 09/06/2022 12:47 PM EDT Attempted to speak with a provider for Mr. Modi at [facility] to certified alcohol counselor prednisone taper of 2.5mg q week based upon rheumatology and ophthalmology evaluation not c/w GCA. Phone rang without answer x 2. Will attempt to call again this afternoon. 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 Age related macular degeneration - Smoking history: [...] 01, 2022 3:05 PM documented in this encounterRivers[facility]03-16-2023 Instructions* Patient Instructions* Shana Delgado MD - 09/01/2022 10:54 AM EDT Labs on the first floor today Eye exam today in [facility] Continue prednisone dose as is pending labs and eye evaluation documented in this encounterRiverside [facility]03-16-2023 History of Present illness Narrative* Shana [...] vascular disease s/p bilateral BKA, CKD, and MN s/p CABG who presents for evaluation of [...] muscle aches or pains Vascular surgery at [facility]: Left temporal artery biopsy 12/24/2021 [...] many vessels Eye doctor Dr. Lucas at [facility] sent him to [facility] for GCA evaluation [phone], Currently on prednisone 10mg daily since 02/28/2022 [...] (initially didn't like the food at the [facility]) HEAD: negative for, scalp tenderness, jaw claudication, [...] kidney disease no dialysis. Dr. [place] in [place] Congestive heart failure (HCC) DM (diabetes mellitus) [...] (L56.8) Photosensitivity (I73.9) PVD (peripheral vascular disease) ([facility]) (E11.69) Type 2 diabetes mellitus with other specified complication, without long-term current use of (Z79.52) nursing home current use of systemic steroids (E55.9) Vitamin D deficiency Elizabeth Modi is a very pleasant 82 yo male with a past medical history notable for bilateral cataracts, long-standing type 2 diabetes, tobacco use disorder (quit ), peripheral vascular disease s/p bilateral BKA, CKD, hearing loss, and MN s/p CABG who presents for evaluation of GCA in the setting of bilateral decreased vision associated with photosensitivity. This is a very pleasant 82 yo male with numerous cardiovascular risk factors presenting in the context of decreased vision with photosensitivity. Based upon the history that was obtained from the patient and [facility] caregiver today, he has not endorsed GCA [...] Zack Iraheta DO PGY5 Rheumatology Fellow Pager [phone] The above patient was seen and examined [...] arteritis Shana Burton MD documented in this encounterRiverside [facility] Hospital08-01-2022 Note ORIGINAL EXAMINATION: TWO XRAY VIEWS [...] Sign Date: 01/17/2022 11:59:11 PM Ordering Provider: [facility]08-01-2022 Note ORIGINAL EXAMINATION: TWO XRAY VIEWS [...] Date: 01/17/2022 11:59:11 PM Ordering Provider: HUNTER Veras [id number] Note Discharge Instructions Thank you for allowing [...] Op 01/17/2022 01:00 PM EDT HUNTER FALCON [facility] Cardiothoracic Surgery [facility] Hospital Follow Up 02/15/2022 10:00 AM EDT [facility] Follow Up Appointments Follow Up with KARL HIDALGO MD When 02/15/2022 10:00 AM EDT Where: [address] [place] [address]- Follow Up with HUNTER FALCON When 01/17/2022 01:30 PM EDT Why: please obtain a CXR 1 hour prior to your appt. Where: [address] [facility] [place]oth[place] [address]- Follow Up with Discharge to [facility] LOC [phone] When Within 1-2 days Follow Up with Cardiac Rehab- [facility] When Why: The Cardiac Rehab department will call you to schedule you for phase 2. We left you a brochurewith information about cardiac rehab. If you have any questions please call [phone]. Where: [facility] [address] [place] [address]- The Following Activity and Diet Have Been [...] surgeon and have chest x-ray done at [facility]., 01/13/22 10:45:00 EDT Other Therapies [...] - Ordered -- Rehab potential fair-Has Bilat. BRITTON, 01/13/22 10:45:15 EDT Someone Will Contact You [...] to receive it can visit one of [facility] vaccine clinics. There are many vaccine clinic locations within the [facility]. For locations and available times, please visit [email or web address] It is important to note that some COVID mobile vaccine clinics are held outdoors and may be canceled in rainy or stormy conditions. To learn more about pediatric vaccinations (ages 5-11), we invite you to visit the [facility] webpage. [email or web address]/[email or web address]-Emrkvouyll-[email or web address] [email or web address].htmlTo learn more about the COVID-19 vaccine, we invite you to visit the [employer] website for a list of frequently asked questions. [email or web address]-[email or web address] _[email or web address]-Questions.pdf [employer] Patient Portal Access Instructions: Stay connected with your healthcare team and access your personal medical information anytime with the [employer] Patient Portal.If you would like a full copy of your medical records, please contact the [facility] Medical Records Department, Monday through Monday between 8a.m. and 4:30p.m. Please follow the directions below to access the portal: 1.Access the email account you provided upon registration to the [facility].2.Look for an invitation email from [facility].3.Open the email and access the invitation link: Accept Invitation to [employer]4.Fill in the required rios to create your account. Sign into www.[email or web address] with your username and password that you [...] you will allow to register on the [employer] Patient Portal for access to your information. You can also access the [employer] Patient Portal on the Factual. Simply click on "Health Records" under "HealthData" and then click on the [employer] logo. HOW TO SAFELY DISPOSE OF PRESCRIPTION [...] Call your local pharmacy or go to [email or web address] to find one close to you.3.Make use of household items: Use cat litter or old coffee grounds to dispose medications if other options arenot available. Mix your drugs with these household products, seal them in an airtight container andthrow it into the garbage. Call [facility]: [phone] to be sure your drugs can be [...] that I should contact my do ctor. Patient/Warehousing Technician Signature: Date/Time: Relationship to Patient: Witness Name/Signature: Date/Time: [facility] [id number] Note ORIGINAL EXAMINATION: ONE XRAY VIEW OF [...] Sign Date: 01/13/2022 6:27:59 AM Ordering Provider: Counts include 234 beds at the [facility]07-28-2022 Note ORIGINAL EXAMINATION: ONE XRAY VIEW OF [...] Sign Date: 01/13/2022 6:27:59 AM Ordering Provider: [facility]07-27-2022 Note ORIGINAL EXAMINATION: ONE XRAY VIEW OF [...] Sign Date: 01/12/2022 7:32:39 PM Ordering Provider: Counts include 234 beds at the [facility]07-27-2022 Note ORIGINAL EXAMINATION: ONE XRAY VIEW [...] Date: 01/12/2022 7:32:39 PM Ordering Provider: [facility]RESNor[facility] [id number] Note Date of Service 01/12/2022 Temporary A and V pacer wires discontinued. Patient tolerated well. Patient instructed to remain bedrest for 1 hour. Digitally Signed by YIMI NEWELL FACING CUTTING MACHINE OPERATOR-DIESEL ENGINE ASSEMBLER on 01/12/2022 05:06 PM [facility] [id number] Note Date of Service 01/12/2022 Chief Complaint [...] cell arteritis on prednisone. He resides at [facility]. He presented on 12/30/2021 with sudden onset of altered mental status and shortness of breath. Troponin 3577. Creatinine elevated 2.3. He was transferred to [facility] for fur ther evaluation. Echocardiogram completed [...] rhythm in the 60s. Transfer to stepdown. [facility] following for blood sugar management. [...] Central venous access: Left subclavian triple-lumen Disposition: [facility] Current Weight Dosing Weight: 81.5 [...] 7. Diabetes Hgb A1c 8.4% Followed by [facility]. Glucoses ranging 69-1 33. On [...] discussed with Dr. Hernandez. [1] Progress Note; CHARANHONORIOPALAK ROBINS GRIS 01/11/2022 11:08 EDT Digitally Signed by YIMI NEWELL on 01/12/2022 04:58 PM [facility] [id number] Note Date of Service 07/14/2021 postop day [...] cell arteritis on prednisone. He resides at [facility]. He presented on 12/30/2021 with sudden onset of altered mental status and shortness of breath. Troponin 3577. Creatinine elevated 2.3. He was transferred to [facility] for fur ther evaluation. Echocardiogram completed [...] rhythm in the 60s. Transfer to stepdown. [facility] following for blood sugar management. [...] 09:04 EDT Digitally Signed by PALAK NORMAN APRN-CHECK EMBOSSER on 01/11/2022 11:18 AM [facility] [id number] Endocrinology Progress note Date of Service 01/11/22 [...] mupirocin 2% Ointment 22 Gram(s) tube 1 fmei, Nostril, each, BID pantoprazole 40 mg EC [...] Weinstein on 12/24/2021-on prednisone. [facility]. He presented to [facility] on December 30, 2021 due to a sudden onset of alteredmental status and shortness of breath. At [facility], he was noted to have acute kidney injury with creatinine 2.3 and elevated troponin at 3577. EKG revealed normal sinus rhythm without evidenceof ST elevation or depression. Negative for COVID-19 at [facility]. He was transferred to [facility] for further evaluation. Echocardiogram on December 30, 2021 revealed an EF of 45 to 50% and mild MR. 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 Cardiothoracic surgery was consulted for possible surgical myocardial vascularization. 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 Endocrine consult placed by [facility] for diabetic management. Longstanding type II diabetic with A1c of 8.4%. Currently residing at [facility] with orders in place for Humalog 32 [...] 10 units qhs, metformin 500 twice daily, Dbresyyog08tj qd and a 0-10 sliding scale with [...] by CASPER MURRY on 01/11/2022 11:35 AM [facility] [id number] Note ORIGINAL EXAMINATION: CT OF THE CHEST [...] Sign Date: 01/10/2022 4:43:27 PM Ordering Provider: Counts include 234 beds at the [facility]07-25-2022 Endocrinology Progress note Date of Service 01/10/22 [...] Weinstein on 12/24/2021-on prednisone. [facility]. He presented to [facility] on December 30, 2021 due to a sudden onset of alteredmental status and shortness of breath. At [facility], he was noted to have acute kidney injury with creatinine 2.3 and elevated troponin at 3577. EKG revealed normal sinus rhythm without evidenceof ST elevation or depression. Negative for COVID-19 at [facility]. He was transferred to [facility] for further evaluation. Echocardiogram on December 30, 2021 revealed an EF of 45 to 50% and mild MR. 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 Cardiothoracic surgery was consulted for possible surgical myocardial vascularization. Now s/p CABG by Dr. Hrenandez 01/05/22. Endocrine consult placed by [facility] for diabetic management. Longstanding type II diabetic with A1c of 8.4%. Currently residing at [facility] with orders in place for Humalog 32 [...] by CASPER MURRY on 01/10/2022 04:44 PM [facility] [id number] Note ORIGINAL EXAMINATION: CT OF THE CHEST [...] is recommended. Reference: J Am Juvencio Radiol. 2014;12(2): 143-50 Interpreted by: jS Rosales MD Preliminary Report By: Cayetano Larson Electronically signed By Sj Rosales MD Dictated Date: 01/10/2022 4:15:35 PM Prelim Date: 01/10/2022 4:26:07 PM Sign Date: 01/10/2022 4:43:27 PM Ordering Provider: [facility]07-25-2022 Note Date of Service 01/10/2022 Chief Complaint [...] cell arteritis on prednisone. He resides at [facility]. He presented on 12/30/2021 with sudden onset of altered mental status and shortness of breath. Troponin 3577. Creatinine elevated 2.3. He was transferred to [facility] for further evaluation. Echocardiogram completed showing EF of 45 to 50% with mild MR. Heart catheterization completed showing multivessel disease. On 01/05/2022 he underwent a coronary bypass graft x1 with MOLINA to the LAD per Dr. D'Agostino. He tolerated the procedure well and was [...] postop, on amiodarone. Currently ratecontrolled in the 's. Keep AV temporary pacing wires today. Remains [...] by NICHOLE RODRIGUEZ on 01/10/2022 08:37 AM [facility] [id number] Note Date of Service 01/09/2022 Repeat INR 6.3. Aquamephyton 10 mg SQ x1. Repeat INR in 4 hours. Digitally Signed by KASSIDY SHANKAR on 01/09/2022 02:03 PM [facility] [id number] Endocrinology Progress note Date of Service 01/09/22 [...] Weinstein on 12/24/2021-on prednisone. He resides at [facility] past 3 months. He presented to [facility] on December 30, 2021 due to a sudden onset of alteredmental status and shortness of breath. At [facility], he was noted to have acute kidney injury with creatinine 2.3 and elevated troponin at 3577. EKG revealed normal sinus rhythm without evidenceof ST elevation or depression. Negative for COVID-19 at [facility]. He was transferred to [facility] for further evaluation. Echocardiogram on December 30, 2021 revealed an EF of 45 to 50% and mild MR. 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 Cardiothoracic surgery was consulted for possible surgical myocardial vascularization. 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 Endocrine consult placed by [facility] for diabetic management. Longstanding type II diabetic with A1c of 8.4%. Currently residing at [facility] with orders in place for Humalog 32 [...] BERNICE MONREAL MD on 01/09/2022 01:13 PM [facility] [id number] Note Date of Service 01/09/2022 POD #4 [...] giant cellarteritis on prednisone. He resides at [facility]. He presented on 12/30/2021 with sudden onset ofaltered mental status and shortness of breath. Troponin 3577. Creatinine elevated 2.3. He was transferred to [facility] for further evaluation. Echocardiogram completed showing [...] Continue Central Line: For IV access Disposition: [facility] Weight Current Weight Dosing Weight: 81.5 [...] baseline, plan follow-up with Dr. [facility] from [place] at discharge currently NSR rate 60, Coumadin on hold secondary to elevated INR 4.8. 5. CKD (chronic kidney disease), stage III 6. AF (paroxysmal atrial fibrillation) Currently NSR rate 60, Coumadin on hold secondary to elevated INR 4.8.Repeat INR at noon. On amiodarone. Home amiodarone and Eliquis were both discontinued in August 2021 7. Diabetes Hgb A1c 8.4% Glucose 68-177, [facility] following 8. HTN (hypertension) Blood [...] by KASSIDY SHANKAR on 01/09/2022 11:51 AM [facility] [id number] Note ORIGINAL EXAMINATION: TWO XRAY VIEWS OF [...] Date: 01/09/2022 7:51:53 AM Ordering Provider: TRINY HERNANDEZ [facility] [id number] Note ORIGINAL EXAMINATION: TWO XRAY VIEWS OF [...] Date: 01/09/2022 7:51:53 AM [facility]ology Progress note Date of [...] Glucose, Capillary 01/08/2022 16:28:00 EDT 132 mg/dL [place] 82-115 Glucose Testing Blood Glucose, Capillary 01/08/2022 [...] Weinstein on 12/24/2021-on prednisone. He resides at [facility] past 3 months. He presented to [facility] on December 30, 2021 due to a sudden onset of alteredmental status and shortness of breath. At [facility], he was noted to have acute kidney injury with creatinine 2.3 and elevated troponin at 3577. EKG revealed normal sinus rhythm without evidenceof ST elevation or depression. Negative for COVID-19 at [facility]. He was transferred to [facility] for further evaluation. Echocardiogram on December 30, 2021 revealed an EF of 45 to 50% and mild MR. 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 Cardiothoracic surgery was consulted for possible surgical myocardial vascularization. 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 Endocrine consult placed by [facility] for diabetic management. Longstanding type II diabetic with A1c of 8.4%. Currently residing at [facility] with orders in place for Humalog 32 [...] BERNICE MONREAL MD on 01/08/2022 05:20 PM [facility] [id number] Note Date of Service 01/08/2022 POD #3 [...] giant cellarteritis on prednisone. He resides at [facility]. He presented on 12/30/2021 with sudden onset ofaltered mental status and shortness of breath. Troponin 3577. Creatinine elevated 2.3. He was transferred to [facility] for further evaluation. Echocardiogram completed showing [...] episodes of bradycardia. Plans to return to [facility] atdischarge Subjective No complaints Objective Vitals and Measurements [...] baseline, plan follow-up with Dr. [facility] from [facility] at discharge, Urineoutput 1100 cc last 24 hours 5. CKD (chronic kidney disease), stage III 6. AF (paroxysmal atrial fibrillation) Currently atrial fibrillation rate 90, Coumadin, amiodarone, patient had previously been on amiodarone and Eliquis but these were discontinued in August 2021 7. Diabetes Hgb A1c 8.4% Glucose 141-249, [facility] following 8. HTN (hypertension) Blood [...] by KASSIDY SHANKAR on 01/08/2022 11:02 AM [facility] [id number] Note ORIGINAL EXAMINATION: ONE XRAY VIEW OF [...] Sign Date: 01/08/2022 7:49:49 AM Ordering Provider: Counts include 234 beds at the [facility]07-23-2022 Note ORIGINAL EXAMINATION: ONE XRAY VIEW OF [...] Sign Date: 01/08/2022 7:49:49 AM Ordering Provider: [facility]07-22-2022 Nephrology Progress note Date of Service 01/07/2022 [...] renal standpoint. Patient will follow with his hairspring adjuster Dr. [facility] in [place] on discharge. Discussed with patient. Digitally Signed by TAMIKA RODAS MD on 01/07/2022 12:42 PM [facility] [id number] Note ORIGINAL EXAMINATION: TWO XRAY VIEWS OF [...] Sign Date: 01/07/2022 12:23:59 PM Ordering Provider: [facility]07-22-2022 Endocrinology Progress note Date of Service 01/07/22 [...] Glucose, Capillary 01/07/2022 07:19:00 EDT 136 mg/dL [place] 82-115 Glucose Testing Glucose Level 01/07/2022 05:08:00 EDT 124 mg/dL [place] 82-115 Glucose Testing Blood Glucose, Capillary 01/07/2022 00:53:00 EDT 155 mg/dL [place] 82-115 Glucose Testing Blood Glucose, Capillary 01/06/2022 [...] (peripheral vascular disease) s/p bilateral BKA 2020 13. Mood disorder 14. History of Singh's [...] Weinstein on 12/24/2021-on prednisone. He resides at [facility] for[facility] past [facility]. He presented to [facility] on December 30, 2021 due to a sudden onset of alteredmental status and shortness of breath. At [facility], he was noted to have acute kidney injury with creatinine 2.3 and elevated troponin at 3577. EKG revealed normal sinus rhythm without evidenceof ST elevation or depression. Negative for COVID-19 at [facility]. He was transferred to [facility] for further evaluation. Echocardiogram on December 30, 2021 revealed an EF of 45 to 50% and mild MR. 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 Cardiothoracic surgery was consulted for possible surgical myocardial vascularization. 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 Endocrine consult placed by [facility] for diabetic management. Longstanding type II diabetic with A1c of 8.4%. Currently residing at [facility] with orders in place for Humalog 32 [...] by CASPER MURRY on 01/07/2022 04:39 PM [facility] [id number] Note Date of Service 01/07/2022 Chief Complaint [...] and shortness of breath. He resides at [facility]. He denied having any chest pain or syncope. He was found to have an acute kidney injury at that time with creati nine of 2.3 and a troponin of [address] [facility]. He was transferred to [facility] for further evaluation where an echocardiogram revealed [...] Central venous access: Left subclavian triple-lumen Disposition: [facility] Weight Current Weight Dosing Weight: 81.5 kg [...] 7. Diabetes Hgb A1c 8.4% Followed by [facility]. Glucoses ranging 96-1 55. On [...] by YIMI NEWELL on 01/07/2022 10:01 AM [facility] [id number] Anesthesiology Consult note Patient: ELIZABETH MODI Age: [...] LINN RICHARD DO on 01/07/2022 08:18 AM [facility] [id number] Note ORIGINAL EXAMINATION: TWO XRAY VIEWS OF [...] Sign Date: 01/07/2022 12:23:59 PM Ordering Provider: [facility]07-21-2022 Nephrology Progress note Date of Service [...] TAMIKA RODAS MD on 01/06/2022 10:19 AM [facility] [id number] Endocrinology Progress note Date of Service 01/06/22 [...] Weinstein on 12/24/2021-on prednisone. He resides at [facility] past 3 months. He presented to [facility] on December 30, 2021 due to a sudden onset of alteredmental status and shortness of breath. At [facility], he was noted to have acute kidney injury with creatinine 2.3 and elevated troponin at 3577. EKG revealed normal sinus rhythm without evidenceof ST elevation or depression. Negative for COVID-19 at [facility]. He was transferred to [facility] for further evaluation. Echocardiogram on December 30, 2021 revealed an EF of 45 to 50% and mild MR. Cardiac catheterization completed showing multivessel disease.Cardiothoracic surgery has been consulted for possible surgical myocardial vascularization. Endocrine consult placed by CTS for diabetic management. Longstanding type II diabetic with A1c of 8.4%. Currently residing at [facility] with orders in place for Humalog 32 [...] by CASPER MURRY on 01/06/2022 04:03 PM [facility] HospitalSajfclfn63-73-0944 Note Date of Service 01/06/2022 Chief Complaint [...] and shortness of breath. He resides at [facility]. He denied having any chest pain or syncope. He was found to have an acute kidney injury at that time with creati nine of 2.3 and a troponin of [address] [facility]. He was transferred to [place] for further evaluation where an echocardiogram revealed [...] 1 45, on insulin drip per the [facility] ICU glycemic protocol at 8 units/h, [...] by BARRERA SALES on 01/06/2022 07:42 AM [facility] HospitalOounhqhe12-74-5423 Note ORIGINAL EXAMINATION: ONE XRAY VIEW OF [...] Date: 01/06/2022 6:18:00 AM Ordering Provider: TRINY HERNANDEZ [facility] HospitalXybutqpt95-83-9759 Note ORIGINAL EXAMINATION: ONE XRAY VIEW OF [...] Date: 01/06/2022 6:18:00 AM [facility] Progress note Date of [...] CELIO CLAROS MD on 01/05/2022 02:25 PM [facility] HospitalIzinjpwq79-24-8549 Nephrology Progress note Date of Service 01/05/2022 [...] TAMIKA RODAS MD on 01/05/2022 02:15 PM [facility] HospitalHdxjopmb68-34-7624 Note ORIGINAL HISTORY: Line placement COMPARISON: 5 [...] Date: 01/05/2022 1:24:35 PM Ordering Provider: TRINY HERNANDEZ [facility] HospitalQczzemzw81-16-4836 Note ORIGINAL HISTORY: Nasogastric tube placement COMPARISON: No FINDINGS: There is a nasogastric tube with tip in the stomach and side hole at the gastroesophageal junction. Interpreted by: Zack Bucio MD Preliminary Report By: Zack Bucio MD Electronically signed By Zack Bucio MD Dictated Date: 01/05/2022 1:22:43 PM Prelim Date: 01/05/2022 1:23:19 PM Sign Date: 01/05/2022 1:23:19 PM Ordering Provider: [facility]07-20-2022 Note ORIGINAL HISTORY: Line placement COMPARISON: 5 [...] Sign Date: 01/05/2022 1:24:35 PM Ordering Provider: On license of [facility]07-20-2022 Note ORIGINAL HISTORY: Nasogastric tube placement COMPARISON: No FINDINGS: There is a nasogastric tube with tip in the stomach and side hole at the gastroesophageal junction. Interpreted by: Zack Bucio MD Preliminary Report By: Zack Bucio MD Electronically signed By Zack Bucio MD Dictated Date: 01/05/2022 1:22:43 PM Prelim Date: 01/05/2022 1:23:19 PM Sign Date: 01/05/2022 1:23:19 PM Ordering Provider: On license of [facility]07-20-2022 Cardiology Progress note Date of [...] CELIO CLAROS MD on 01/05/2022 02:25 PM [facility] [id number] Anesthesiology Consult note Patient: ELIZABETH MODI Age: [...] kidney disease), stage III / SNOMED CT 8890693768 / Confirmed CAD (coronary artery disease) / SNOMED CT 08928614 / Confirmed Diabetes / SNOMED CT 610761946 / Confirmed History of Singh's palsy / SNOMED CT 940761080 / Confirmed HLD (hyperlipidemia) / SNOMED CT 10260912 / Confirmed HTN (hypertension) / SNOMED CT 5495831032 / Confirmed Hypothyroid / SNOMED CT 52657399 / Confirmed QUIN (acute kidney injury) / SNOMED CT 36718067 / Confirmed Mood disorder / SNOMED CT 63500862 / Confirmed NSTEMI (non-ST elevated myocardial infarction) / SNOMED CT 50559736 / Confirmed AF (paroxysmal atrial fibrillation) / SNOMED CT 175732502 / Confirmed PVD (peripheral vascular disease) / SNOMED CT 6967347515 / Confirmed Giant cell arteritis / SNOMED CT 0534043827 / Confirmed, Active Problems (24) AF (paroxysmal atrial fibrillation) QUIN (acute kidney injury) CAD (coronary artery disease) Cataract CKD (chronic kidney disease), stage III COPD (chronic obstructive pulmonary disease) Depression Diabetes DM (diabetes mellitus) Giant cell arteritis Giant cell arteritis syndrome Glasses Heart disease High blood pressure History of Singh's palsy HLD (hyperlipidemia) HTN (hypertension) Hypothyroid Kidney disease MN (myocardial infarction) Mood disorder NSTEMI (non-ST elevated myocardial infarction) PVD (peripheral vascular disease) Tachycardia Histories Past Medical History: No active or resolved past medical history items have been selected or recorded. Family History: No family history items have been selected or recorded. Procedure history: Amputation ([id number]) in 2020 at 79 Years. Comments: 07/12/2021 14:23 Maria Esther Navarro RN Left below the knee Amputation ([id number]) in 2020 at 79 Years. Comments: 07/12/2021 14:24 Maria Esther Navarro RN right below the knee amputation Catheter ([id number]) in 2020 at 79 Years. Comments: 07/12/2021 14:25 Maria Esther Navarro RN Temporary dialysis cath None ([id number]). 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 No Tool Hardener On Yes Patient Dressed In Hospital gown [...] On and Limits Checked Nail Bed Color [place] Capillary Refill < 2 seconds Heart Sounds [...] Warm Temperature All Extremities Warm Skin Description [place], Normal for ethnicity, Dry Skin Integrity Pressure points intact Skin Turgor Elastic Mucous Membrane Color [place] Mucous Membrane Description Moist Sensory Perception Dre [...] Rhythm Sinus rhythm Monitoring Lead II, V1/MCL1 MO Interval 0.17 second(s) QRS Duration 0.12 second(s) [...] Transport Mode Order Detail MTT with Monitor Coke Still Cleaner Details Form Coke Still Cleaner Details Form 01/05/2022 0:28 EDT Skin Assessment [...] Transport Mode Order Detail MTT with Monitor Coke Still Cleaner Details Form Coke Still Cleaner Details Form 01/04/2022 23:29 EDT heparin Begin [...] On and Limits Checked Nail Bed Color [place] Capillary Refill < 2 seconds Heart Sounds ICU S1S2 Heart Rhythm Regular Radial Pulse, Left 2+ Normal Radial Pulse, Right 2+ Normal Popliteal Pulse, Left 1+ Thready Popliteal Pulse, Right 1+ [place] Edema Generalized None Cardiac Rhythm Sinus rhythm Monitoring Lead II, V1/MCL1 MO Interval 0.18 second(s) QRS Duration 0.12 second(s) QT Interval 0.47 second(s) QTc Interval 0.48 second(s) Alarms On and Functional Yes Respirations Unlabored Respiratory Pattern Regular Breath Sounds Auscultated Anterior only All Lobes Breath Sounds Clear Oxygen Therapy Room air Abdomen Description Non-distended, Symmetric, Soft Abdomen Palpation Non-Tender Bowel Sounds All Quadrants Present Urinary Elimination Voiding, no difficulties All Extremity Description [place], Normal for ethnicity Skin Temperature Warm Temperature All Extremities Warm Skin Description [place], Normal for ethnicity Mucous Membrane Color [place] Mucous Membrane Description Moist Leg Bilateral Skin [...] On and Limits Checked Nail Bed Color [place] Capillary Refill < 2 seconds Heart Sounds ICU S1S2 Heart Rhythm Regular Radial Pulse, Left 2+ Normal Radial Pulse, Right 2+ Normal Popliteal Pulse, Left 1+ [place]ready Popliteal Pulse, Right 1+ [place] Edema Generalized None Cardiac Rhythm Sinus rhythm Monitoring Lead II, V1/MCL1 MO Interval 0.19 second(s) QRS Duration 0.12 second(s) [...] Facial Movement Symmetric resting/crying All Extremity Description [place], Normal for ethnicity Skin Temperature Warm Temperature All Extremities Warm Skin Description [place], Normal for ethnicity Skin Integrity Pressure points intact Skin Turgor Elastic Mucous Membrane Color [place] Mucous Membrane Description Moist Sensory Perception Dre [...] Symptoms Bruising Skin Temperature Warm Skin Description [place], Normal for ethnicity Skin Integrity Intact Skin Turgor Elastic Mucous Membrane Color [place] Mucous Membrane Description Moist Sensory Perception Dre [...] On and Limits Checked Nail Bed Color [place] Capillary Refill < 2 seconds Heart Sounds [...] Facial Movement Symmetric resting/crying All Extremity Description [place], Normal for ethnicity Skin Temperature Warm Temperature All Extremities Warm Skin Description [place], Normal for ethnicity Skin Integrity Pressure points intact Skin Turgor Non-Elastic Mucous Membrane Color [place] Mucous Membrane Description Moist Leg Bilateral Skin [...] Rhythm Sinus rhythm Monitoring Lead III, V1/MCL1 MO Interval 0.20 second(s) QRS Duration 0.09 second(s) [...] mEq predniSONE 10 mg mg vitamin A 15656 unit(s) unit(s) 01/04/2022 8:39 EDT Heart Rate Monitored 59 bpm LOW Reason For Taking VItal Signs Routine Primary Pain Intensity 0 Primary Pain Nonverbal Response Nods No Pain Scale Type 0-10 Pain scale Monitor Alarms On and Limits Checked Nail Bed Color [place] Capill (more content not included)... [facility] [id number] Cardiology Progress note Date of Service 01/04/22 [...] CELIO CLAROS MD on 01/04/2022 02:59 PM [facility] HospitalPejgymhj07-07-0107 Cardiology Progress note Date of Service 01/04/22 [...] CELIO CLAROS MD on 01/04/2022 02:59 PM [facility] HospitalWmcrztmm29-23-9015 Endocrinology Progress note Date of Service 01/04/22 [...] Weinstein on 12/24/2021-on prednisone. He resides at [facility] past 3 months. He presented to [facility] on December 30, 2021 due to a sudden onset of alteredmental status and shortness of breath. At [facility], he was noted to have acute kidney injury with creatinine 2.3 and elevated troponin at 3577. EKG revealed normal sinus rhythm without evidenceof ST elevation or depression. Negative for COVID-19 at [facility]. He was transferred to [facility] for further evaluation. Echocardiogram on December 30, 2021 revealed an EF of 45 to 50% and mild MR. Cardiac catheterization completed showing multivessel disease.Cardiothoracic surgery has been consulted for possible surgical myocardial vascularization. Endocrine consult placed by CTS for diabetic management. Longstanding type II diabetic with A1c of 8.4%. Currently residing at [facility] with orders in place for Humalog 32 [...] by CASPER MURRY on 01/04/2022 04:05 PM [facility] HospitalUjrnglvp61-75-1609 Note ORIGINAL EXAMINATION: CTA OF THE NECK [...] Sign Date: 01/04/2022 9:39:34 AM Ordering Provider: [facility]07-18-2022 Cardiology Progress note Date of Service 01/03/22 [...] CELIO CLAROS MD on 01/03/2022 06:35 PM [facility] HospitalTbdnwvoa51-56-5633 Note ORIGINAL EXAMINATION: CTA OF THE NECK [...] Sign Date: 01/04/2022 9:39:34 AM Ordering Provider: [facility]07-18-2022 Nurse Progress note [address] CT, they said patient okay to come to CT with contrast after having metformin this AM 01/03/22. Pharmacy said to check with prescriber. Dr. Claros said patient okay to go to CT with contrast after taking metformin this AM 01/03/22. Digitally Signed by Macy Bolanos RN on 01/03/2022 04:45 PM [facility] HospitalUgypcrkm56-31-1426 Cardiology Progress note Date of Service 01/03/22 [...] CELIO CLAROS MD on 01/03/2022 06:35 PM [facility] HospitalXbumljko20-18-2292 Nephrology Progress note Date of Service 01/03/2022 [...] TAMIKA RODAS MD on 01/03/2022 10:59 AM [facility] HospitalJqfrchbq97-65-5108 Endocrinology Progress note Date of Service 01/03/22 [...] Glucose, Capillary 01/03/2022 07:10:00 EDT 174 mg/dL [place] 82-115 Glucose Testing Glucose Level 01/03/2022 03:44:00 EDT 157 mg/dL OH 82-115 Glucose Testing Blood Glucose, Capillary 01/02/2022 [...] Weinstein on 12/24/2021-on prednisone. He resides [facility] past [facility]. He presented to [facility] on December 30, 2021 due to a sudden onset of alteredmental status and shortness of breath. At [facility], he was noted to have acute kidney injury with creatinine 2.3 and elevated troponin at 3577. EKG revealed normal sinus rhythm without evidenceof ST elevation or depression. Negative for COVID-19 at [facility]. He was transferred to [facility] for further evaluation. Echocardiogram on December 30, 2021 revealed an EF of 45 to 50% and mild MR. Cardiac catheterization completed showing multivessel disease.Cardiothoracic surgery has been consulted for possible surgical myocardial vascularization. Endocrine consult placed by CTS for diabetic management. Longstanding type II diabetic with A1c of 8.4%. Currently residing at [facility] with orders in place for Humalog 32 [...] by CASPER MURRY on 01/03/2022 11:17 AM [facility] HospitalDhpdshsv29-89-4664 Cardiology Progress note Date of Service 01/02/2022 [...] BILL ALMODOVAR MD on 01/02/2022 04:22 PM [facility] HospitalGlnluvuf06-28-0011 Cardiology Progress note Date of Service 01/02/2022 [...] BILL ALMODOVAR MD on 01/02/2022 04:22 PM [facility] HospitalXplhzanl77-22-3217 Endocrinology Progress note Date of Service 01/02/22 [...] Glucose, Capillary 01/02/2022 11:29:00 EDT 177 mg/dL OH 82-115 Glucose Testing Blood Glucose, Capillary 01/02/2022 07:13:00 EDT 91 mg/dL 82-115 Glucose Testing Glucose Level 01/02/2022 02:25:00 EDT 94 mg/dL 82-115 Glucose Testing Blood Glucose, Capillary 01/01/2022 22:04:00 EDT 123 mg/dL HI 82-115 Glucose Testing Blood Glucose, Capillary 01/01/2022 18:20:00 EDT 131 mg/dL HI 82-115 Glucose Testing Blood Glucose, Capillary 01/01/2022 18:20:00 EDT 131 mg/dL OH 82-115 EKG EKG - Completed -- 12/30/21 17:52:00 EDT Electrocardiogram (EKG) - Ordered -- 07/16/22 21:11:00 EDT Assessment/Plan 1. CAD (coronary artery [...] Weinstein on 12/24/2021-on prednisone. He resides at [facility] past 3 months. He presented to [facility] on December 30, 2021 due to a sudden onset of alteredmental status and shortness of breath. At [facility], he was noted to have acute kidney injury with creatinine 2.3 and elevated troponin at 3577. EKG revealed normal sinus rhythm without evidenceof ST elevation or depression. Negative for COVID-19 at [facility]. He was transferred to [facility] for further evaluation. Echocardiogram on December 30, 2021 revealed an EF of 45 to 50% and mild MR. Cardiac catheterization completed showing multivessel disease.Cardiothoracic surgery has been consulted for possible surgical myocardial vascularization. Endocrine consult placed by CTS for diabetic management. Longstanding type II diabetic with A1c of 8.4%. Currently residing at [facility] with orders in place for Humalog 32 [...] same inpatient. Last 24 Hours: Met w/ bunk house worker; appreciate input and teaching. Current orders are in place for a 2-18 sliding scale with meals and at bedtime alone. Blood glucose this morning with the same 91. Discussed with CTS CEMETERY VAULT INSTALLER Katelynn. OHS work-up continues. No definitive date for CABG. Add low-dose metformin 500 mg twice daily. Hold off on SGLT2 until postop. GLP analog could be considered outpatient. Reintroduction of basal IP as needed. Discussed with bedside RN Will continue to follow while inpatient. Time Spent Total time spent 25 minutes Digitally Signed by CASPER MURRY on 01/02/2022 01:55 PM [facility] HospitalEbhgbabq49-39-8250 Nurse Progress note A student nurse administered medications and completed assessments on this patient under my supervision this evening. Nayeli Beckham RN Digitally Signed by YURI Beckham on 01/02/2022 01:02 AM [facility] HospitalTkioovnj06-04-0509 Cardiology Progress note Date of Service 01/01/2022 [...] BILL ALMODOVAR MD on 01/01/2022 08:04 PM [facility] HospitalCtnglapw29-09-3273 Cardiology Progress note Date of Service 01/01/2022 [...] BILL ALMODOVAR MD on 01/01/2022 08:04 PM [facility] [id number] Note I saw and evaluated the patient on 01/01/2022. I agree with the FACING CUTTING MACHINE OPERATOR note of 12/31/2021. The patient is an [...] TRINY HERNANDEZ MD on 01/01/2022 10:53 AM [facility] HospitalLxbybvwq28-59-2037 Cardiothoracic surgery Consult note Date of Service [...] Weinstein on 12/24/2021-on prednison. He resides at [facility] for the past 3 months. He presented to [facility] on December 30, 2021 due to a sudden onset of altered mental status and shortness of breath. He endorses nonproductive cough. Denied any chest pain or syncope. At [facility], he was noted to have acute kidney injury with creatinine 2.3 and elevated troponinat 3577. EKG revealed normal sinus rhythm without evidence of ST elevation or depression. Negative for COVID-19 at [facility]. He was transferred to [facility] for further evaluation. Echocardiogram on December 30, 2021 revealed an EF of 45 to 50% and mild MR. Cardiac catheterization completed earlier today showing multivessel disease (official cath report pending at the time of this dictation). Cardiothoracic surgery has been consulted for possible surgical myocardial vascularization. Eliquis was discontinued per [facility] reports on September 01, 2021. Patient is [...] follows with Dr. [facility] of nephrology in [place]. 5. AF (paroxysmal atrial fibrillation) Currently in [...] past medical history from EMR and transfer [facility] documentation, conducting qher-ce-vfeu visit with patient at bedside, and dictating [...] tablet, 10 mg= 1 tab(s), Oral, qDay Cade Conteh SoloStar 300 units/mL subcutaneous solution, 100 unit(s), Subcutaneous, qHS, Investigating Allergies NKA Social History Tobacco use: Former user, quit 40 years ago Alcohol use: Occasional Illicit drug use: Patient denies Living arrangements: Currently lives at [facility] however lived at home prior to Ambulatory [...] 17:21 EDT Digitally Signed by YIMI NEWELL APRN-DIESEL ENGINE ASSEMBLER on 12/31/2021 05:21 PM [facility] HospitalGobzfzww20-75-1191 Endocrinology Consult note Date of Service 01/01/22 [...] Weinstein on 12/24/2021-on prednisone. He resides at [facility] forthe past 3 months. He presented to [facility] on December 30, 2021 due to a sudden onset of altered mental status and shortness of breath. At [facility], he was noted to have acute kidney injury with creatinine 2.3 and elevated troponin at 3577. EKG revealed normal sinus rhythm without evidence of ST elevation or depression. Negative for COVID-19 at [facility]. He was transferred to [facility] for further evaluation. Echocardiogram on December [...] Managed by his PCP. Currently resides at [facility]. He is unable to speak to his [...] not caring much for the food at [facility]. He reports weight of 156 p ounds [...] thyroid disease but does have orders per [facility] for levothyroxine 50 mcg daily and carries [...] (peripheral vascular disease) s/p bilateral BKA 2020 12. Mood disorder 13. History of Singh's palsy Orders: insulin glargine, Start: 01/01/22 10:47:00 EDT, Dose = 25 unit(s), = 0.25 mL, Subcutaneous (INT), now, STAT, Stop: 01/01/22 10:47:00 EDT, Rate: 0 mL/hr, Infuse over: 0 minute(s), 01/01/22 10:47:00 EDT insulin lispro (HumaLOG), Start: 01/01/22 8:24:00 EDT, Give 2-18 units/dose, Subcutaneous, achs, NOW, 0, 01/01/22 8:24:00 EDT [employer] Diet Consult to Diabetes Education [...] Weinstein on 12/24/2021-on prednisone. He resides at [facility] past 3 months. He presented to [facility] on December 30, 2021 due to a sudden onset of alteredmental status and shortness of breath. At [facility], he was noted to have acute kidney injury with creatinine 2.3 and elevated troponin at 3577. EKG revealed normal sinus rhythm without evidenceof ST elevation or depression. Negative for COVID-19 at [facility]. He was transferred to [facility] for further evaluation. Echocardiogram on December 30, 2021 revealed an EF of 45 to 50% and mild MR. Cardiac catheterization completed showing multivessel disease.Cardiothoracic surgery hasbeen consulted for possible surgical myocardial vascularization. Endocrine consult placed by CTS for diabetic management. Longstanding type II diabetic with A1c of 8.4%. Currently residing at [facility] with orders in place for Humalog 32 [...] by CASPER MURRY on 01/01/2022 03:38 PM [facility] HospitalKgxmczqp79-19-0292 Nephrology Progress note Date of Service 01/01/2022 [...] TAMIKA RODAS MD on 01/01/2022 09:57 AM [facility] HospitalNnwdvrhi05-89-4018 Nephrology Progress note Date of Service 01/01/2022 [...] TAMIKA RODAS MD on 01/01/2022 09:57 AM [facility] HospitalThmbabiw92-24-0699 Cardiothoracic surgery Consult note Date of Service [...] Weinstein on 12/24/2021-on prednison. He resides at [facility] for the past 3 months. He presented to [facility] on December 30, 2021 due to a sudden onset of altered mental status and shortness of breath. He endorses nonproductive cough. Denied any chest pain or syncope. At [facility], he was noted to have acute kidney injury with creatinine 2.3 and elevated troponinat 3577. EKG revealed normal sinus rhythm without evidence of ST elevation or depression. Negative for COVID-19 at [facility]. He was transferred to [facility] for further evaluation. Echocardiogram on December 30, 2021 revealed an EF of 45 to 50% and mild MR. Cardiac catheterization completed earlier today showing multivessel disease (official cath report pending at the time of this dictation). Cardiothoracic surgery has been consulted for possible surgical myocardial vascularization. Eliquis was discontinued per [facility] reports on September 01, 2021. Patient is [...] follows with Dr. [facility] of nephrology in [place]. 5. AF (paroxysmal atrial fibrillation) Currently in [...] past medical history from EMR and transfer [facility] documentation, conducting odkx-qh-siqy visit with patient at bedside, and dictating [...] Patient denies Living arrangements: Currently lives at [facility] however lived at home prior to Ambulatory [...] by YIMI NEWELL on 12/31/2021 05:21 PM [facility] HospitalDbctekyf21-51-2010 Nephrology Progress note Date of Service 12/31/2021 [...] TAMIKA RODAS MD on 12/31/2021 11:26 AM [facility] HospitalRdcygwsb54-95-1068 Note ORIGINAL EXAMINATION: ONE XRAY VIEW OF [...] By: Sj Mantilla DO Electronically signed By jS Mantilla DO Dictated Date: 12/31/2021 8:11:38 AM Prelim Date: 12/31/2021 8:13:17 AM Sign Date: 12/31/2021 8:13:17 AM Ordering Provider: [facility]07-14-2022 History and physical note Date of Service 12/30/2021 Chief Complaint chest pain History of Present Illness This is a 81-year-old male, [facility] resident with prior history of atrial fibrillation, type 2diabetes, hypothyroidism, mood disorder, bilateral BKA's, hyperlipidemia who presented to due toaltered mental status. He was there diagnosed with non-ST elevation MN with troponin elevation of 3000 and uptrending. Patient also had an QUIN with creatinine 2.3. Currently patient denies any chest pain or palpitations. He denies prior history of coronary artery disease. However on further questioning does endorse he may have had a left heart catheterization at [facility] 1 year ago. Patient is a poor [...] 36 Hour Lab Data Assessment/Plan Non-ST elevation MN ? history of atrial fibrillation on Eliquis, [...] has history of atrial fibrillation but per [facility] has not been on his Eliquis or [...] DE LEÓN MD on 12/30/2021 10:03 AM [facility] HospitalDyzfhxrb48-43-8214 Evaluation + Plan noteExtracted from: Title:History and Physical Author:HASEEB DE LEÓN MD Date:12/30/21 Non-ST elevation MN ? history of atrial fibrillation on Eliquis, [...] has history of atrial fibrillation but per [facility] has not been on his Eliquis or [...] Appointment Date:01/17/2022 01:00:00 PM Scheduled Provider:HUNTER FALCON Location:[facility] Appointment Type:CTS OV Post Op Appointment Date:02/15/2022 10:00:00 AM Scheduled Provider: [facility] Hospital Follow Up [facility] 07-14-2022 Nephrology Consult note Date of Service 12/30/2021 Reason for Consultation Stage III CKD, needs clearance for cardiac catheterization. Referring Physician Dr. Hidalgo. History of Present Illness Mr. Modi is a very pleasant 81-year-old gentleman with past medical history of hypertension, diabetes, atrial fibrillation on anticoagulation, hypothyroidism who is a resident of nursing facility in [place]. Patient was sent to [facility] due to altered mental status. He was also having chest pain. Initial lab work done at [facility] showed elevated troponin in the range of 3000.Patient was diagnosed with acute non-STEMI. He was transferred to [facility] for further management. He also had acute renal failure with creatinine of around 2.3 at ER. Repeat blood work in [place] showed that his creatinine has improved to 1.9. Patient does have history of CKD and follows with Dr. Montgomery in [place]. Dr. Montgomery does not have privileges at [facility]. Renal consultation was requested for acute [...] diarrhea, abdominal pain. He has been at [facility] in [place] from July 2021. Per family he is going to be at the [facility] long[facility]term. Patient developed c hest pain and altered mental status at [facility] for which he was sent to ER. Over there he was diagnosed with acute non-STEMI with elevated troponin levels and eventually transferred to [facility]. His home medication list includes JERO [...] SARS-CoV-2 (COVID-19) mRNA-1273 vaccine: 0 unknown unit (03/30/21) Digitally Signed by TAMIKA RODAS MD on 12/30/2021 11:57 AM [id number] History and physical note Date of Service 12/30/2021 Chief Complaint chest pain History of Present Illness This is a 81-year-old male, [facility] resident with prior history of atrial fibrillation, type 2diabetes, hypothyroidism, mood disorder, bilateral BKA's, hyperlipidemia who presented to due toaltered mental status. He was there diagnosed with non-ST elevation MN with troponin elevation of 3000 and uptrending. Patient also had an QUIN with creatinine 2.3. Currently patient denies any chestpain or palpitations. He denies prior history of coronary artery disease. However on further questioning does endorse he may have had a left heart catheterization at [facility] 1 year ago. Patient roseann poor historian [...] 36 Hour Lab Data Assessment/Plan Non-ST elevation MN ? history of atrial fibrillation on Eliquis, [...] has history of atrial fibrillation but per [facility] has not been on his Eliquis or [...] DE LEÓN MD on 12/30/2021 10:03 AM [id number] Hospital Discharge instructions Follow Up Care 12/30/2021 04:59:03 With:HUNTER FALCON APRN-DIESEL ENGINE ASSEMBLER Address: [address] [place] [address] [address] [facility] [place]oth[place] [address]- When:01/17/2022 13:30:00 Comments:please obtain a CXR 1 hour prior to your appt. With:Discharge to [facility] LOC [phone] Address:Unknown When:1-2 days With:KARL HIDALGO MD Address: [address] [facility] [place] [address]- When:02/15/2022 10:00:00 With:Cardiac Rehab[facility] Address: [facility] [address] [place] [address]- When: Unknown Comments:The Cardiac Rehab department will call you to schedule you for phase 2. We left you a brochure withinformation about cardiac rehab. If you have any questions please call [phone]. [facility] 08-24-2021 History of Present illness Narrative* Thu Roche RN - 02/09/2021 11:33 AM EDT Discharge instructions given to pt and performance improvement director at bedside. All questions answered. All belongingsat bedside. VSS. Pt resting comfortably, denies pain * Thu Roche RN - 02/09/2021 11:17 AM EDT Report called to Leighann VALE at [facility] * Thu Roche RN - 02/09/2021 11:08 AM EDT assistant produce manager to bedside * Thu Roche RN - 02/09/2021 11:03 AM EDT [facility] arrived to [facility] 42. Attached to equipment monitor phototypesetting. VSS. general assistant updated * Lindsey Morales RN - 02/09/2021 8:33 AM EDT Notified anesthesia blood sugar is 284 * Jazmín Burton RN - 02/05/2021 4:[address] Vicente's office called and stated pt should not hold Eliquis nor Aspirin before surgery. Will include on pre-op instructions for facility. documented in this [facility] Work Phone: Anesthesiology Consult note* LINN [...] kidney disease), stage III / SNOMED CT 1074510798 / Confirmed CAD (coronary artery disease) / SNOMED CT 73841053 / Confirmed Diabetes / SNOMED CT 643853352 / Confirmed History of Singh's palsy / SNOMED CT 784383492 / Confirmed HLD (hyperlipidemia) / SNOMED CT 56964339 / Confirmed HTN (hypertension) / SNOMED CT 0119102522 / Confirmed Hypothyroid / SNOMED CT 41234302 / Confirmed QUIN (acute kidney injury) / SNOMED CT 62334770 / Confirmed Mood disorder / SNOMED CT 11251749 / Confirmed NSTEMI (non-ST elevated myocardial infarction) / SNOMED CT 12063400 / Confirmed AF (paroxysmal atrial fibrillation) / SNOMED CT 122812642 / Confirmed PVD (peripheral vascular disease) / SNOMED CT 6287919386 / Confirmed Giant cell arteritis / SNOMED CT 0401510322 / Confirmed, Active Problems (24) AF (paroxysmal atrial fibrillation) QUIN (acute kidney injury) CAD (coronary artery disease) Cataract CKD (chronic kidney disease), stage III COPD (chronic obstructive pulmonary disease) Depression Diabetes DM (diabetes mellitus) Giant cell arteritis Giant cell arteritis syndrome Glasses Heart disease High blood pressure History of Singh's palsy HLD (hyperlipidemia) HTN (hypertension) Hypothyroid Kidney disease MN (myocardial infarction) Mood disorder NSTEMI (non-ST elevated myocardial infarction) PVD (peripheral vascular disease) Tachycardia Histories Past Medical History: No active or resolved past medical history items have been selected or recorded. Family History: No family history items have been selected or recorded. Procedure history: Amputation ([id number]) in 2020 at 79 Years. Comments: 07/12/2021 14:23 Maria Esther Navarro RN Left below the knee Amputation ([id number]) in 2020 at 79 Years. Comments: 07/12/2021 14:24 Maria Esther Navarro RN right below the knee amputation Catheter ([id number]) in 2020 at 79 Years. Comments: 07/12/2021 14:25 Maria Esther Navarro RN Temporary dialysis cath None ([id number]). 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 No Tool Hardener On Yes Patient Dressed In Hospital gown [...] On and Limits Checked Nail Bed Color [place] Capillary Refill < 2 seconds Heart Sounds [...] Warm Temperature All Extremities Warm Skin Description [place], Normal for ethnicity, Dry Skin Integrity Pressure points intact Skin Turgor Elastic Mucous Membrane Color [place] Mucous Membrane Description Moist Sensory Perception Dre [...] Rhythm Sinus rhythm Monitoring Lead II, V1/MCL1 MO Interval 0.17 second(s) QRS Duration 0.12 second(s) [...] Transport Mode Order Detail MTT with Monitor Coke Still Cleaner Details Form Coke Still Cleaner Details Form 01/05/2022 0:28 EDT Skin Assessment [...] Transport Mode Order Detail MTT with Monitor Coke Still Cleaner Details Form Coke Still Cleaner Details Form 01/04/2022 23:29 EDT heparin Begin [...] On and Limits Checked Nail Bed Color [place] Capillary Refill < 2 seconds Heart Sounds ICU S1S2 Heart Rhythm Regular Radial Pulse, Left 2+ Normal Radial Pulse, Right 2+ Normal Popliteal Pulse, Left 1+ Thready Popliteal Pulse, Right 1+ Thready Edema Generalized None Cardiac Rhythm Sinus rhythm Monitoring Lead II, V1/MCL1 MO Interval 0.18 second(s) QRS Duration 0.12 second(s) QT Interval 0.47 second(s) QTc Interval 0.48 second(s) Alarms On and Functional Yes Respirations Unlabored Respiratory Pattern Regular Breath Sounds Auscultated Anterior only All Lobes Breath Sounds Clear Oxygen Therapy Room air Abdomen Description Non-distended, Symmetric, Soft Abdomen Palpation Non-Tender Bowel Sounds All Quadrants Present Urinary Elimination Voiding, no difficulties All Extremity Description [place], Normal for ethnicity Skin Temperature Warm Temperature All Extremities Warm Skin Description [place], Normal for ethnicity Mucous Membrane Color [place] Mucous Membrane Description Moist Leg Bilateral Skin [...] On and Limits Checked Nail Bed Color [place] Capillary Refill < 2 seconds Heart Sounds ICU S1S2 Heart Rhythm Regular Radial Pulse, Left 2+ Normal Radial Pulse, Right 2+ Normal Popliteal Pulse, Left 1+ Thready Popliteal Pulse, Right 1+ [place] Edema Generalized None Cardiac Rhythm Sinus rhythm Monitoring Lead II, V1/MCL1 MO Interval 0.19 second(s) QRS Duration 0.12 second(s) [...] Facial Movement Symmetric resting/crying All Extremity Description [place], Normal for ethnicity Skin Temperature Warm Temperature All Extremities Warm Skin Description [place], Normal for ethnicity Skin Integrity Pressure points intact Skin Turgor Elastic Mucous Membrane Color [place] Mucous Membrane Description Moist Sensory Perception Dre [...] Symptoms Bruising Skin Temperature Warm Skin Description [place], Normal for ethnicity Skin Integrity Intact Skin Turgor Elastic Mucous Membrane Color [place] Mucous Membrane Description Moist Sensory Perception Dre [...] On and Limits Checked Nail Bed Color [place] Capillary Refill < 2 seconds Heart Sounds [...] Facial Movement Symmetric resting/crying All Extremity Description [place], Normal for ethnicity Skin Temperature Warm Temperature All Extremities Warm Skin Description [place], Normal for ethnicity Skin Integrity Pressure points intact Skin Turgor Non-Elastic Mucous Membrane Color [place] Mucous Membrane Description Moist Leg Bilateral Skin [...] 11:06 EDT Blood Glucose, Capillary 148 mg/dL [place] Blood Glucose Testing Reason Routine Temperature Oral [...] Rhythm Sinus rhythm Monitoring Lead III, V1/MCL1 MO Interval 0.20 second(s) QRS Duration 0.09 second(s) [...] mEq predniSONE 10 mg mg vitamin A 24037 unit(s) unit(s) 01/04/2022 8:39 EDT Heart Rate Monitored 59 bpm LOW Reason For Taking VItal Signs Routine Primary Pain Intensity 0 Primary Pain Nonverbal Response Nods No Pain Scale Type 0-10 Pain scale Monitor Alarms On and Limits Checked Nail Bed Color [place] Capillary Refill < 2 seconds Heart Sounds [...] Facial Movement Symmetric resting/crying All Extremity Description [place], Normal for ethnicity Skin Temperature Warm Temperature All Extremities Warm Skin Description [place], Normal for ethnicity Skin Integrity Pressure points intact Skin Turgor Non-Elastic Mucous Membrane Color [place] Mucous Membrane Description Moist Leg Bilateral Wound [...] Transport Mode Order Detail MTT with Monitor Coke Still Cleaner Details Form Coke Still Cleaner Details Form 01/04/2022 7:11 EDT Blood Glucose, [...] Rhythm Sinus rhythm Monitoring Lead III, V1/MCL1 MO Interval 0.18 second(s) QRS Duration 0.09 second(s) [...] Type 0-10 Pain scale Nail Bed Color [place] Capillary Refill < 2 seconds Heart Sounds [...] Facial Movement Symmetric resting/crying All Extremity Description [place], Normal for ethnicity Skin Temperature Warm Temperature All Extremities Warm Skin Description Normal for ethnicity Skin Integrity Pressure points intact Skin Turgor Non-Elastic Mucous Membrane Color [place] Mucous Membrane Description Moist Leg Bilateral Skin [...] Rhythm Sinus rhythm Monitoring Lead III, V1/MCL1 MO Interval 0.20 second(s) QRS Duration 0.09 second(s) [...] Light Use Yes . Assessment and Plan [place] Society of Anesthesiologists (ASA) physical status classification: [...] LINN RICHARD DO on 01/05/2022 07:59 AM [facility] Evaluation + Plan note Future Appointments Appointment Date:02/07/2022 01:00:00 PM Scheduled Provider:HUNTER FALCON Location:[facility] Appointment Type:CTS OV Post Op Follow Up Appointment Date:02/15/2022 10:00:00 AM Scheduled Provider: Location:[facility] Appointment Type:CV OV Hospital Follow Up Future Scheduled Tests Radiology* XR Chest 2 Views (PA & Lateral) 02/07/22 [facility] Evaluation note* Diagnosis Optic nerve edema- Primary Papilloedema, unspecified [facility]* Diagnosis Vision changes- Primary Unspecified visual disturbance Photosensitivity Acute dermatitis due to solar radiation PVD (peripheral vascular disease) (HCC) Peripheral vascular disease, unspecified Type 2 diabetes mellitus with other specified complication, without long-term current use of insulin (HCC) nursing home current use of systemic steroids Encounter for long-term (current) use of steroids Vitamin D deficiency Unspecified vitamin D deficiency [facility]* Diagnosis Onset Date Resolution Status Renal mass acute Calculous cholecystitis with obstruction resolved Choledocholithiasis resolved Cholecystostomy care acute Renal mass [facility] Work Phone: evaluation note* Diagnosis Onset Date Resolution Status Renal mass acute Calculous cholecystitis with obstruction resolved Choledocholithiasis resolved Cholecystostomy care acute Renal mass acute Cholecystostomy care [facility] Work Phone: evaluation note* Diagnosis Screening for genitourinary condition- Primary Screening for other and unspecified genitourinary condition Gross hematuria Left renal mass Unspecified disorder of kidney and ureter [facility]* Diagnosis Gross hematuria documented in this encounter [facility] note* Diagnosis Gross hematuria- Primary Screening for genitourinary condition Screening for other and unspecified genitourinary condition [facility]* Diagnosis Gross hematuria- Primary [facility]* Diagnosis Gross hematuria- Primary Left renal mass Unspecified disorder of kidney and ureter documented in this encounter [facility] noteNo assessment information [facility] Work Phone: Hospital course Narrative No data available for this section [facility] Hospital Discharge instructions* Instructions* Ammy Vicente [...] next day as directed. 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 Yes January 11, 2024 7:47am Advance Directive Response Recorded Date/ Time Do you have a Healthcare Power of [place] Vessel Operator? Yes October 15, 2024 5:49pm Name of Medical Power of [place] Vessel Operator angelic sue leeanna October 15, 2024 5:49pm Hospital Course Note HNO ID: [id number] Author: Emily SantiagoResSmitha Prescott DO Service: General Surgery Author Type: [...] (more content not included)... Note HNO ID: [id number] Author: Teo Duran DO Service: General Surgery [...] W/WO CONTRST 1+ BODY Nikolai Fisher PA-C [address] [place] [address] Ct Imaging [id number] Referral ID Status Reason Start Date Expiration Date Visits Requested Visits Authorized [id number] Authorized Auto-Generat ed Referral 06/25/2024 07/18/2025 1 1 Specialty Diagnoses / Procedures Referred By Barb durán Referred To Contact Ophthalmology Diagnoses Vision changes Photosensitivity Procedures CONSULT TO OPHTHALMOLOGY OFFICE/OUTPATIENT CARE ONE AT [facility] 60-74 MINUTES Shana Ga MD [address] [place] [address] Referral ID Status Reason Start Date Expiration Date Visits Requested Visits Authorized [id number] Authorized PCP Requested Referral 09/01/2022 09/01/2023 1 [...] 3 M FU June 06, 2024 3:30pm LONGTERM LAB WORK June 17 1:00pm NEW CONCERN June 17, 2024 3:17pm LABWORK June 20, 2024 5: 00am LONGTERM LAB WORK June 27, 2024 5:50am MONTHLY EXAM July 05, 2024 3 :48pm MONTHLY EXAM July 23, 2024 4 :43pm LONGTERM LAB WORK July 24, 2024 4:00am LABWORK August 01, 2024 2:00pm LABWORK August 21, 2024 5:00 am 4 M FU September 06, 2024 1:3 8pm Reason for Visit Admit Date Fecal incontinence June 06, 2024 3:30pm S/P ERCP June 06, 2024 3:30pm Fecal incontinence September 06, 2024 1:3 8pm S/P ERCP September 06, 2024 1:3 8pm Chief Complaint Admit Date LONGTERM LAB WORK June 17 1:00pm NEW CONCERN June 17, 2024 3:17pm LABWORK June 20, 2024 5: 00am LONGTERM LAB WORK June 27, 2024 5:50am MONTHLY EXAM July 05, 2024 3 :48pm MONTHLY EXAM July 23, 2024 4 :43pm LONGTERM LAB WORK July 24, 2024 4:00am LABWORK [...] Date LABWORK June 20, 2024 5: 00am LONGTERM LAB WORK June 27, 2024 5:50am MONTHLY EXAM July 05, 2024 3 :48pm MONTHLY EXAM July 23, 2024 4 :43pm LONGTERM LAB WORK July 24, 2024 4:00am LABWORK August 01, 2024 2:00pm LABWORK August 21, 2024 5:00 am MONTHLY EXAM September 03, 2024 6:1 1pm NEW CONCERN September 05, 2024 1:1 5pm 4 M FU September 06, 2024 1:3 8pm LABWORK September 18, 2024 5:00 am fall October 15, 2024 3:5 7pm Chief Complaint Admit Date MONTHLY EXAM July 23, 2024 4 :43pm LONGTERM LAB WORK July 24, 2024 4:00am LABWORK August 01, 2024 2:00pm LABWORK August 21, 2024 5:00 am MONTHLY EXAM September 03, 2024 6:1 1pm NEW CONCERN September 05, 2024 1:1 5pm 4 M FU September 06, 2024 1:3 8pm LABWORK September 18, 2024 5:00 am fall October 15, 2024 3:5 7pm FU SC WANTED SOONER THAN DECEMBER SO DIDN'T WANT INSIDE SALES REPRESENTATIVE October 16, 2024 7:59am LABWORK October 23, 2024 5:00am Reason for Visit Admit Date Fecal incontinence September 06, 2024 1:3 8pm S/P ERCP September 06, 2024 1:3 8pm Atherosclerotic heart diseas e of [place] coronary artery without angina pectoris October 16, [...] WANTED SOONER THAN DECEMBER SO DIDN'T WANT INSIDE SALES REPRESENTATIVE October 16, 2024 7:59am LABWORK October 23, 2024 5:00am LONGTERM LAB WORK November 07, 2024 5:0 0am [...] WANTED SOONER THAN DECEMBER SO DIDN'T WANT INSIDE SALES REPRESENTATIVE October 16, 2024 7:59am LABWORK October 23, 2024 5:00am LONGTERM LAB WORK November 07, 2024 5:0 0am LABWORK November 20, 2024 5:00a m Chief Complaint Admit Date LABWORK September 18, 2024 5:00 am Monthly Exam September 24, 2024 3:41 pm New Concern October 01, 2024 3:2 5pm fall October 15, 2024 3:5 7pm FU [place] WANTED SOONER THAN DECEMBER SO DIDN'T WANT INSIDE SALES REPRESENTATIVE October 16, 2024 7:59am LABWORK October 23, 2024 5:00am LONGTERM LAB WORK November 07, 2024 5:0 0am LABWORK November 20, 2024 5:00a m MONTHLY EXAM December 03, 2024 3:30 pm LABWOKR December 18, 2024 5:00a m Reason for Visit Admit Date Atherosclerotic heart diseas e of [place] coronary artery without angina pectoris October 16, 2024 7:59am Essential hypertension October 16, 2024 7:59am Hyperlipidemia October 16, 2024 7:5 9am Paroxysmal atrial fibrillation September 7:59am Chief Complaint Admit Date fall October 15, 2024 3:5 7pm FU [place] WANTED SOONER THAN DECEMBER SO DIDN'T WANT INSIDE SALES REPRESENTATIVE October 16, 2024 7:59am LABWORK October 23, 2024 5:00am LONGTERM LAB WORK November 07, 2024 5:0 0am LABWORK November 20, 2024 5:00a m MONTHLY EXAM December 03, 2024 3:30 pm LABWOKR December 18, 2024 5:00a m Monthly Exam December 24, 2024 5:38p m Chief Complaint Admit Date LABWORK October 23, 2024 5:00am LONGTERM LAB WORK November 07, 2024 5:0 0am LABWORK November 20, 2024 5:00a m MONTHLY EXAM December 03, 2024 3:30 pm LABWOKR December 18, 2024 5:00a m Monthly Exam December 24, 2024 5:38p m LONGTERM LAB WORK January 20, 2025 5 :00am LONGTERM LAB WORK January 22, 2025 5 :00am LONGTERM LAB WORK January 28, 2025 5:00am MONTHLY EXAM January 28, 2025 4: 15pm LONGTERM LAB WORK February 04, 2025 4:00am Additional Source Comments (unrecognized sect ion and content) No Status Records FoundNo Status Records FoundNo Status Records FoundNo Status Records FoundNo Status Records FoundNo Status Records FoundNo Status Records FoundNo Status Records FoundNo Status Records FoundNo Status Records FoundNo Status Records Found INFORMATION SOURCE (unrecogn ized section and content) DATE CREATED AUTHOR 05/19/2020 [facility] DATE CREATED AUTHOR AUTHOR'S ORGANIZ ATION 05/21/[address] [facility] DATE CREATED AUTHOR AUTHOR'S ORGANIZ ATION 02/11/2021 [facility] DATE CREATED AUTHOR AUTHOR'S ORGANIZ ATION 08/05/2021 [facility] DATE CREATED AUTHOR AUTHOR'S ORGANIZ ATION 09/07/2021 [facility] DATE CREATED AUTHOR AUTHOR'S ORGANIZ ATION 04/15/2023 [facility] DATE CREATED AUTHOR AUTHOR'S ORGANIZ ATION 01/11/2024 [facility] ([place]) DATE CREATED AUTHOR AUTHOR'S ORGANIZ ATION 10/06/2024 [facility] DATE CREATED AUTHOR AUTHOR'S ORGANIZ ATION 01/15/2025 [facility] DATE CREATED AUTHOR AUTHOR'S ORGANIZ ATION 01/21/2025 [facility] DATE CREATED AUTHOR AUTHOR'S ORGANIZ ATION 04/18/2025 [facility] Scheduled Active and Recently Administ ered [...] 20 mL/lumen, Pre-op (day of surgery) 0900 (Due)2099 (Due) sodium chloride flush 0.9 % injection [...] prior to surgery., Pre-op (day of surgery) 09 (Given - [...] or prosecute any alcohol or drug abuse patient.[facility] the event this information is protected by the Federal Confidentiality of Alcohol and Drug Abuse Patient Records regulations: The Federal rules restrict any use of the information to criminally investigate or prosecute any alcohol or drug abuse patient.[facility] Hospital[facility] the event this information is protected by the Federal Confidentiality of Alcohol and Drug Abuse Patient Records regulations: The Federal rules restrict any use of the information to criminally investigate or prosecute any alcohol or drug abuse patient.[facility] Hospital[facility] the event this information is protected by the Federal Confidentiality of Alcohol and Drug Abuse Patient Records regulations: The Federal rules restrict any use of the information to criminally investigate or prosecute any alcohol or drug abuse patient.[facility] Hospital[facility] the event this information is protected by the Federal Confidentiality of Alcohol and Drug Abuse Patient Records regulations: The Federal rules restrict any use of the information to criminally investigate or prosecute any alcohol or drug abuse patient.[facility] the event this information is protected by the Federal Confidentiality of Alcohol and Drug Abuse Patient Records regulations: The Federal rules restrict any use of the information to criminally investigate or prosecute any alcohol or drug abuse patient.[facility] HospitalIn the event this information is protected by the Federal Confidentiality of Alcohol and Drug Abuse Patient Records regulations: The Federal rules restrict any use of the information to criminally investigate or prosecute any alcohol or drug abuse patient.[facility] Hospital[facility] the event this information is protected by the Federal Confidentiality of Alcohol and Drug Abuse Patient Records regulations: The Federal rules restrict any use of the information to criminally investigate or prosecute any alcohol or drug abuse patient.[facility] HospitalIn the event this information is protected by the Federal Confidentiality of Alcohol and Drug Abuse Patient Records regulations: The Federal rules restrict any use of the information to criminally investigate or prosecute any alcohol or drug abuse patient.[facility] HospitalIn the event this information is protected by the Federal Confidentiality of Alcohol and Drug Abuse Patient Records regulations: The Federal rules restrict any use of the information to criminally investigate or prosecute any alcohol or drug abuse patient.[facility] HospitalIn the event this information is protected by the Federal Confidentiality of Alcohol and Drug Abuse Patient Records regulations: The Federal rules restrict any use of the information to criminally investigate or prosecute any alcohol or drug abuse patient.[facility] HospitalIn the event this information is protected by the Federal Confidentiality of Alcohol and Drug Abuse Patient Records regulations: The Federal rules restrict any use of the information to criminally investigate or prosecute any alcohol or drug abuse patient.[facility]In the event this information is protected by the Federal Confidentiality of Alcohol and Drug Abuse Patient Records regulations: The Federal rules restrict any use of the information to criminally investigate or prosecute any alcohol or drug abuse patient.[facility] HospitalIn the event this information is protected by the Federal Confidentiality of Alcohol and Drug Abuse Patient Records regulations: The Federal rules restrict any use of the information to criminally investigate or prosecute any alcohol or drug abuse patient.[facility] Care Teams (unrecognized sec tion and [...] 2024 End: September 03, 2024 Christina Whipple CEMETERY VAULT INSTALLER, CEMETERY VAULT INSTALLER-C Attending Provider Active Start: September 03, 2024 End: September 03, 2024 Team Status: Inactive Member Role Status Dates Dr. Diana Salmeron MD Primary Care Provider Active Start: September 05, 2024 End: September 05, 2024 Christina Whipple NP, CEMETERY VAULT INSTALLER-C Attending Provider Active Start: September 05, 2024 [...] 2024 End: July 05, 2024 Christina Whipple CEMETERY VAULT INSTALLER, CEMETERY VAULT INSTALLER-C Attending Provider Active Start: July 05, 2024 End: July 05, 2024 Trans Router Relationship Specialty Start Date End Date Dexter Reyes Chi [address] [address] PCP - General Gerontology 12/06/19 Ryan Rodrigues MD [address] [facility] [place] [address] Infectious Diseases 12/06/19 Yadi White, [address] [place] [address] Urology 04/28/20 Trans Router Relationship Specialty Start Date End Date Diana Salmeron MD [address] [place], [place] [address] PCP - General Internal Medicine 09/01/22 Ryan Rodrigues MD [address] [facility] [place] [address] Infectious Diseases 12/06/19 Yadi White, DO [address] [place] [address] Urology 04/28/20 Isac Lucas [address] [place], [place] [address] Referring Ophthalmology 06/27/22 Trans Router Relationship Specialty Start Date End Date Diana Salmeron MD [address] [place] [address] PCP - General Internal Medicine 09/01/22 Ryan Rodrigues MD [address] [facility] [place] [address] Infectious Diseases 12/06/19 Yaid White, DO [address] [place] [address] Urology 04/28/20 Isac Lucas [address] [place] [address] Referring Ophthalmology 06/27/22 Trans Router Relationship Specialty Start Date End Date Diana Salmeron MD [address] [place] [address] PCP - General Internal Medicine 09/01/22 Ryan Rodrigues MD [address] [facility] [place] [address] Infectious Diseases 12/06/19 Yadi White, DO [address] [place] [address] Urology 04/28/20 Isac Lucas [address] [place] [address] Referring Ophthalmology 06/27/22 Team Status: Active Member [...] Dwayne Palumbo MD Attending Provider, Referring P katerina Active Team Status: Inactive Member Role Status [...] Dwayne Palumbo MD Attending Provider, Referring P katerina Active Trans Router Relationship Specialty Start Date End Date Diana Salmeron MD [address] [place], [place] [address] PCP - General Internal Medicine 09/01/22 Ryan Rodrigues MD [address] [place] [address] Infectious Diseases 12/06/19 Yadi White DO [address] [place] [address] Urology 04/28/20 Isac Lucas [address] [place] [address]4931 Referring Ophthalmology 06/27/22 Trans Router Relationship Specialty Start Date End Date Diana Salmeron MD [address] [place], [place] [address] PCP - General Internal Medicine 09/01/22 Ryan Rodrigues MD [address] [place] [address] Infectious Diseases 12/06/19 Yadi White DO [address] [place] [address] Urology 04/28/20 Isac Lucas [facility] [place], [place] [address] Referring Ophthalmology 06/27/22 Trans Router Relationship Specialty Start Date End Date Diana Salmeron MD [address] [place], [place] [address] PCP - General Internal Medicine 09/01/22 Ryan Rodrigues MD [address] [place] [address] Infectious Diseases 12/06/19 Yadi White DO [address] [place] [address] Urology 04/28/20 Isac Lucas [facility] [place], [place] [address] Referring Ophthalmology 06/27/22 Trans Router Relationship Specialty Start Date End Date Diana Salmeron MD [address] [place], [place] [address] PCP - General Internal Medicine 09/01/22 Ryan Rodrigues MD [address] [place] [address] Infectious Diseases 12/06/19 Yadi White DO [address] [place] [address] Urology 04/28/20 Isac Lucas [facility] [place], [place] [address] Referring Ophthalmology 06/27/22 Trans Router Relationship Specialty Start Date End Date Diana Salmeron MD [address] [place] [address] PCP - General Internal Medicine 09/01/22 Ryan Rodrigues MD [address] [facility] [place] [address] Infectious Diseases 12/06/19 [place] [address] [place] [address] Urology 04/28/20 Isac Lucas [address] [place] [address] Referring Ophthalmology 06/27/22 Team Status: Inactive Member [...] Attending Provider Active Start: September 18, 2024 Trans Router Relationship Specialty Start Date End Date Diana Salmeron MD [address] [place] [address] PCP - General Internal Medicine 09/01/22 Ryan Rodrigues MD [address] [facility] [place] [address] Infectious Diseases 12/06/19 Yadi White DO [address] [place] [address] Urology 04/28/20 Isac Lucas [address] [place], [place] [address] Referring Ophthalmology 06/27/22 Trans Router Relationship Specialty Start Date End Date Diana Salmeron MD [address] [facility] [place] [address] PCP - General Internal Medicine 09/01/22 Ryan Rodrigues MD [address] [place] [address] Infectious Diseases 12/06/19 [place] [address] [place] [address] Urology 04/28/20 Isac Lucas [address] [place] [address] Referring Ophthalmology 06/27/22 Team Status: Inactive Member [...] 2024 End: October 01, 2024 Christina Whipple CEMETERY VAULT INSTALLER, CEMETERY VAULT INSTALLER-C Attending Provider Active Start: October 01, 2024 [...] End: September 03, 2024 Christina Whipple NP, CEMETERY VAULT INSTALLER-C Attending Provider Active Start: September 03, 2024 End: September 03, 2024 Team Status: Inactive Member Role/Relationship Status Dates Dr. Diana Salmeron MD Primary Care Provider Active Start: September 05, 2024 End: September 05, 2024 Christina Whipple NP, CEMETERY VAULT INSTALLER-C Attending Provider Active Start: September 05, 2024 [...] Inactive Member Role/Relationship Status Dates Dr. Diana Salmerno MD Primary Care Provider Active Start: September [...] Attending Provider Active Start: December 18, 2024 Trans Router Relationship Specialty Start Date End Date Diana Salmeron MD [address] [facility] [address] [place] [address] PCP - General Internal Medicine 09/01/22 Ryan Rodrigues MD [address] [place] [address] Infectious Diseases 12/06/19 Yadi White DO [address] [place], [place] [address] Urology 04/28/20 Isac Lucas [address] [place] [address] Referring Ophthalmology 06/27/22 Team Status: Inactive Member [...] End: December 24, 2024 Christina Whipple NP CEMETERY VAULT INSTALLER-C Attending Provider Active Start: December 24, 2024 [...] End: December 24, 2024 Christina Whipple NP CEMETERY VAULT INSTALLER-C Attending Provider Active Start: December 24, 2024 [...] Member Role: Primary Care Physician Address: Address: [address] [place] [address] Care Team Related Persons Name: ANGELIC SUE [...] W/WO CONTRST 1+ BODY Nikolai Fisher PA-C [address] [place] [address] Ct Imaging [id number] Referral ID Status Reason Start Date Expiration Date V isits Requested Visits Authorized [id number] Closed Auto-Generate d Referral 06/25/2024 07/18/2025 1 [...] BE BASED ON THE PRIMARY CLINICAL RECORDS. [facility] [employer] [facility]. provides no warranty or guarantee of the accuracy or completeness of information in this document.
[2025-04-23 08:09] LABS: Albumin, Serum 3.2 g/dL (3.4-4.8); Anion Gap 14 (5-15); BUN 31 mg/dL (4-19); BUN/Creat Ratio 21.5 RATIO (10-20); Calcium,Total 8.3 mg/dL (7.6-11.0); Carbon Dioxide 16.0 mmol/L (21.0-32.0); Chloride 108 mmol/L (98-108); Glucose 105 mg/dL (70-99); Potassium 4.5 mmol/L (3.3-5.1)
== END ==
LOC: OLS.WHLEAS 05:00
PROVIDERS: PCP Internal Medicine; Visit Provider Internal Medicine
DX: E11.22 Type 2 diabetes mellitus with diabetic chronic kidney disease (principal); E11.40 Type 2 diabetes mellitus with diabetic neuropathy, unspecified; F03.90 Unspecified dementia, unspecified severity, without behavioral disturbance, psychotic disturbance, mood disturbance, and anxiety; N18.9 Chronic kidney disease, unspecified
CPT/HCPCS: 36415; 80069

== ENCOUNTER → 2025-05-21 05:00 | Outpatient (REF) | payer MEDICARE, MEDICAID, SELFPAY ==
--- OUTSIDE RECORDS SUMMARY | 2025-05-21 04:39 | XMS RPT_ITS | CCD ---
Author Organization [facility] Care Team Providers Care Calculus Tutor Name Role Phone Eric LATHAM, Papa Primary Care Provider ERIC, DEXTER-CHI Primary Care Unavailable HUMA MARIO Referring Unavailable MARIO FINN Attending Unavailable ERIC, DEXETR-CHI Primary Care Unavailable YUSUF COOPER Attending Unavailable ERIC, DEXTER-CHI Referring Unavailable ERIC, DEXTER-CHI Referring Unavailable ERIC, DEXTER-CHI Primary Care Unavailable MARIO FINN Attending Unavailable Eric, Dexter Chi Primary Care Provider Ryan Rodrigues MD Unavailable Yadi White DO Unavailable [phone] DIANA SALMERON MD Primary Care Physician [phone] Ryan Rodrigues MD Unavailable Ruben White DOyrgracia Unavailable Isac Lucas Unavailable Diana Salmeron MD Primary Care Provider Dr. Dexter Reyes Chi Primary Care Provider Dr. Bren Lopes Admit Provider Dr. Bren Lopes Other Provider Dr. Dwayne Palumbo Other Provider [phone] Jesse Haywood Attending Provider Dr. Jesse Haywood Other Provider Dr. Dwayne Palumbo Attending Provider 1([facility])[phone] Friend, Dr. Sauceda Attending Provider Dr. Jesse [...] Rojas MD Attending Provider Unavaila ble Tickton ANIMAL ECOLOGIST-C, Christina Attending Provider Dr. Victor M Rojas [...] Rojas MD Attending Provider Unavaila ble [place] ANIMAL ECOLOGIST-C, Christina Attending Provider Dr. Jesse Angel DO Emergency Provider Dr. Diana Salmeron MD Primary Care Provider Victor M Rojas MD Attending Provider Unavaila ble Sole ANIMAL ECOLOGIST-C, Christina Attending Provider Dr. Jesse Angel DO Attending Provider Foster GARLAND, Lauren Bryan Attending Provider Sole ANIMAL ECOLOGIST-C, Christina Attending Provider Dr. Diana Salmeron MD Primary Care Provider Victor M Rojas MD Attending Provider UnavailDr. Victor M Meneses MD Attending Provider Dr. Diana Salmeron MD Primary Care Provider Victor M Rojas MD Attending Provider Unavaila ble Sole ANIMAL ECOLOGIST-C, Christina Attending Provider Dr. Diana Salmeron MD Referring Provider GAYLA CLINE Attending Unavailable LATOUF, BUTROS Primary Care Unavailable ERIC MONTGOMERY I Attending Unavailable DIANA SALMERON MD Consulting Unavailable ERIC MONTGOMERY I Admitting Unavailable ERIC MONTGOMERY I Primary Care Unavailable PROVIDER, UNKNOWN Consulting Unavailable PROVIDER, UNKNOWN Consulting Unavailable PROVIDER, UNKNOWN Consulting Unavailable Dr. Diana Salmeron MD Primary Care Provider [phone] Victor M Rojas MD Attending Provider UnavailDr. Victor M Meneses MD Attending Provider Sole ANIMAL ECOLOGIST-CChristina Attending Provider Dr. Diana Salmeron MD Primary Care Provider Victor M Rojas MD Referring Provider Unavaila ble Victor M Gastelum Attending Unavailabl e Latouf, Butros Primary Care Unavailable Oleghe OLSVictor M Attending Unavailabl e Latouf, Butros Primary Care Unavailable Latouf, Butros Primary Care Unavailable OleVictor M Fleming Attending Unavailabl e Oleghe OLSVictor M Attending Unavailabl e Latouf, Butros Primary Care [...] Unavail able Latouf, Butros Primary Care Unavailable Christina Whipple [...] Unavailable Latouf, Butros Primary Care Unavailable Sole ANIMAL ECOLOGIST, Christina Attending Unavailable Latouf, Butros Primary Care Unavailable Kacie Simon Attending Unavailable Latouf, Butros Referring Unavailable Latouf, Butros Primary Care Unavailable Oleghe, Efewongbe Attending Unavailable Oleghe, Efewongbe Attending Unavailable Latouf, Butros Primary Care Unavailable Sole ANIMAL ECOLOGIST, Christina Attending Unavailable Latouf, Butros Primary Care Unavailable Oleghe, Efewongbe Attending Unavailable Latouf, Butros Primary Care Unavailable Latouf, Butros Primary Care Unavailable Latouf, Butros Referring Unavailable Nasim Caballero Attending Unavailable Oleghe, Efewongbe Attending Unavailable Latouf, Butros Primary Care Unavailable Latouf, Butros Referring Unavailable Lauren Carlson Attending Unavail able Latouf, Butros Primary Care Unavailable Latouf, Butros Referring Unavailable Kacie Simon Attending Unavailable Latouf, Butros Primary Care Unavailable Oleghe, Efewongbe Attending Unavailable Latouf, Butros Primary Care Unavailable Latouf, Butros Primary Care Unavailable Sole ANIMAL ECOLOGIST, Christina Attending Unavailable Sole ANIMAL ECOLOGIST, Christina Attending Unavailable Latouf, Butros Primary Care Unavailable Medications Current Medications Medication Drug Class(es) [...] Aspirin Aspirin E.C. Active 81 MG DAILY@0800 Sunitha 25th, 2020 7:37am 10-12-2019 [facility] ([id number]) 0 10/12/2019 Active Comment on above: Aspirin Aspirin E.C. Active 81 MG DAILY@0800 October 12, 2019 7:37am 10-12-2019 [facility] ([id number]) Take 81 mg by mouth. atorvastatin 40 [...] Start: 08-19-2019 take 2 tablets by mo [facility] once daily levothyroxine (SYNTHROID) 25 mcg [...] (BACTROBAN) 2 % ointment 01/14/2023 Active nystatin 420234 unt/ml topical cream (10 sources) Polyene Antifungal [...] October 12, 2019 7:45am polyethylene glycol 3350 64320 mg powder for oral solution (20 sources) [...] pen injector 3 mg. 01/13/2025 Active vit C,T-Ie-ywuhv-lutein-zeax an (PRESERVISION AREDS-2) 250-90-40-1 mg (12 sources) Start: 12-09-2020 vit C,E-Zn-coppersmith apprentice ek-tvhlfr-htetxq (PRESERVISION AREDS-2) 250-90-40-1 mg Take 1 Each by mouth. 12/09/2020 Active Start: 12-09-2020 vit C,E-Zn-coppersmith apprentice uo-twuzcg-vmlrik (PRESERVISION AREDS-2) 250-90-40-1 mg Take 1 Each [...] Start: 05-18-2020 take 1000 [IU] by mo [facility] once daily Cholecalciferol (Vitamin D3) Active [...] 8:30am WOUND Comment on above: apply SULLY THICK L ANTHONY TO ULCER DAILY docusate sodium 50 mg / sennosides, fci 8.6 mg oral tablet (1 source) take [...] 7:40am nerve pain take 1 capsule by [facility] once daily for pain gabapentin (NEURONTIN) 100 [...] Coronary atherosclerosis; Translations: [Atherosclerotic heart disease of [place] coronary artery without angina pectoris] Onset: 12-31-2021 [...] Long-term current use of systemic steroid; Translations: [FCI (current) use of systemic steroids] Episodic Other aftercare (5 sources) Drug therapy finding; Translations: [Other watermelon inspector (current) drug therapy] 12-25-2022 Episodic Other aftercare (7 sources) Long-term current use of amiodarone; Translations: [Other halfway (current) drug therapy] 05-16-2022 Episodic Other aftercare (1 source) Other watermelon inspector (current) drug therapy; Translations: [Other watermelon inspector (current) drug therapy] Onset: 04-17-2025 Episodic Other [...] Other nervous system disorders (1 source) H/O: [employer]W MEMBER disorder; Translations: [Personal history of other diseases [...] Facility Cardiology Visit Reporton Cardiology Visit Report [facility] [address] [place] [address] OFFICE VISIT Date of Service: 04/17/25 MR#: [id number] Acct: [id number] Name: ELIZABETH MODI Rep #: [id number] : 1940 Provider: GILL Connor Age/Sex: 84/M Location: [facility] Status: Signed HPI HPI [...] underwent CABG x1 (MOLINA to LAD) at [facility] in [place]. He currently resides at [facility]. 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 Flying Required: No Accompanied by: Caregiver Is patient [...] pulmonary disease) Obesity Atherosclerotic heart disease of [place] coronary artery without angina pectoris Paroxysmal atrial fibrillation 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 Essential hypertension Tinea unguium Vitamin D deficiency Edentulous Tobacco dependence in remission Hypothyroidism Diabetes mellitus type 2, uncontrolled Surgical History (Updated 04/17/25 @ 09:35 by Lauren GARLAND, PA) History of heart surgery History of cardiac catheterization S/P bilateral below knee amputation S/P CABG x 1 History of cardioversion (05/20/20) History of left below knee amputation (05/26/20) H/O endart (more content not included)... Normal [facility] Anion gap in Serum or Plasma Ordered By: Victor M Rojas on 02-11-2025 Anion gap [Moles/Vol] 12 mmol/L 5-15 [facility] BUN/creatinine ratioOrdered By: Victor M Rojas on 02-11-2025 Urea nitrogen/Creatinine [Mass ratio] 21.9 mg/mg High 10-20 [facility] Carbon dioxide, total [Moles /volume] in Central venous bloodOrdered By: Victor M Rojas on 02-11-2025 CO2 [Moles/Vol] 19.2 mmol/L Low 21.0-32.0 [facility] Chloride assayOrdered By: Stefan Rojas on 02-11-2025 Chloride [Moles/Vol] 108 mmol/L 98-108 [facility] Glomerular filtration rate ( GFR) estimation/1.73 sq m using serum, plasma, or whole bOrdered By: Victor M Rojas on 02-11-2025 GFR/1.73 sq M.predicted among non-blacks MDRD (S/P/Bld) [Vol rate/Area] 46 mL/min/{1.73_m2} Low >60 [facility] Comment on above: mL/min/1.73m2 CKD-EP I Creatinine Equation (2020) Potassium measurement (mass/ volume)Ordered By: Victor M Rojas on 02-11-2025 Potassium (Unsp spec) [Mass/Vol] 4.5 mmol/L 3.3-5.1 [facility] Serum creatinine measurement (mass/volume)Ordered By: Victor M Rojas on 02-11-2025 Creatinine [Mass/Vol] 1.51 mg/dL High 0.70-1.20 [facility] Serum glucose measurement (m ass/volume)Ordered By: Victor M Rojas on 02-11-2025 Glucose [Mass/Vol] 148 mg/dL High 70-99 [facility] Serum or plasma albumin akash urement (mass/volume)Ordered By: Victor M Rojas on 02-11-2025 Albumin [Mass/Vol] 3.3 g/dL Low 3.4-4.8 [facility] Serum or plasma calcium akash urement (mass/volume)Ordered By: Victor M Rojas on 02-11-2025 Calcium [Mass/Vol] 8.2 mg/dL 7.6-11.0 [facility] Serum or plasma urea nitroge n measurement (mass/volume)Ordered By: Victor M Rojas on 02-11-2025 Urea nitrogen [Mass/Vol] 33 mg/dL High 4-19 [facility] Sodium levelOrdered By: Brandon Rojas on 02-11-2025 Sodium [Moles/Vol] 139 mmol/L 133-145 [facility] Anion gap in Serum or Plasma Ordered By: Victor M Rojas on 02-04-2025 Anion gap [Moles/Vol] 13 mmol/L 5-15 [facility] BUN/creatinine ratioOrdered By: Victor M Rojas on 02-04-2025 Urea nitrogen/Creatinine [Mass ratio] 15.7 mg/mg 10-20 [facility] Carbon dioxide, total [Moles /volume] in Central venous bloodOrdered By: Victor M Rojas on 02-04-2025 CO2 [Moles/Vol] 19.7 mmol/L Low 21.0-32.0 [facility] Chloride assayOrdered By: Stefan Rojas on 02-04-2025 Chloride [Moles/Vol] 106 mmol/L 98-108 [facility] Glomerular filtration rate ( GFR) estimation/1.73 sq m using serum, plasma, or whole bOrdered By: Victor M Rojas on 02-04-2025 GFR/1.73 sq M.predicted among non-blacks MDRD (S/P/Bld) [Vol rate/Area] 41 mL/min/{1.73_m2} Low >60 [facility] Comment on above: mL/min/1.73m2 CKD-EP I Creatinine Equation (2020) Potassium measurement (mass/ volume)Ordered By: Victor M Rojas on 02-04-2025 Potassium (Unsp spec) [Mass/Vol] 4.2 mmol/L 3.3-5.1 [facility] Serum creatinine measurement (mass/volume)Ordered By: Victor M Rojas on 02-04-2025 Creatinine [Mass/Vol] 1.64 mg/dL High 0.70-1.20 [facility] Serum glucose measurement (m ass/volume)Ordered By: Victor M Rojas on 02-04-2025 Glucose [Mass/Vol] 76 mg/dL 70-99 [facility] Serum or plasma albumin akash urement (mass/volume)Ordered By: Victor M Rojas on 02-04-2025 Albumin [Mass/Vol] 3.4 g/dL 3.4-4.8 [facility] Serum or plasma calcium akash urement (mass/volume)Ordered By: Victor M Rojas on 02-04-2025 Calcium [Mass/Vol] 8.4 mg/dL 7.6-11.0 [facility] Serum or plasma urea nitroge n measurement (mass/volume)Ordered By: Victor M Rojas on 02-04-2025 Urea nitrogen [Mass/Vol] 26 mg/dL High 4-19 [facility] Sodium levelOrdered By: Brandon Rojas on 02-04-2025 Sodium [Moles/Vol] 139 mmol/L 133-145 [facility] Anion gap in Serum or Plasma Ordered By: Victor M Rojas on 01-28-2025 Anion gap [Moles/Vol] 12 mmol/L 5-15 [facility] BUN/creatinine ratioOrdered By: Victor M Rojas on 01-28-2025 Urea nitrogen/Creatinine [Mass ratio] 15.7 mg/mg 10-20 [facility] Carbon dioxide, total [Moles /volume] in Central venous bloodOrdered By: Victor M Rojas on 01-28-2025 CO2 [Moles/Vol] 19.7 mmol/L Low 21.0-32.0 [facility] Chloride assayOrdered By: Stefan Rojas on 01-28-2025 Chloride [Moles/Vol] 106 mmol/L 98-108 [facility] Glomerular filtration rate ( GFR) estimation/1.73 sq m using serum, plasma, or whole bOrdered By: Victor M Rojas on 01-28-2025 GFR/1.73 sq M.predicted among non-blacks MDRD (S/P/Bld) [Vol rate/Area] 38 mL/min/{1.73_m2} Low >60 [facility] Comment on above: mL/min/1.73m2 CKD-EP I Creatinine Equation (2020) Potassium measurement (mass/ volume)Ordered By: Victor M Rojas on 01-28-2025 Potassium (Unsp spec) [Mass/Vol] 4.1 mmol/L 3.3-5.1 [facility] Serum creatinine measurement (mass/volume)Ordered By: Victor M Rojas on 01-28-2025 Creatinine [Mass/Vol] 1.74 mg/dL High 0.70-1.20 [facility] Serum glucose measurement (m ass/volume)Ordered By: Victor M Rojas on 01-28-2025 Glucose [Mass/Vol] 137 mg/dL High 70-99 [facility] Serum or plasma albumin akash urement (mass/volume)Ordered By: Victor M Rojas on 01-28-2025 Albumin [Mass/Vol] 3.2 g/dL Low 3.4-4.8 [facility] Serum or plasma calcium akash urement (mass/volume)Ordered By: Victor M Rojas on 01-28-2025 Calcium [Mass/Vol] 8.1 mg/dL 7.6-11.0 [facility] Serum or plasma urea nitroge n measurement (mass/volume)Ordered By: Victor M Rojas on 01-28-2025 Urea nitrogen [Mass/Vol] 27 mg/dL High 4-19 [facility] Sodium levelOrdered By: Brandon Rojas on 01-28-2025 Sodium [Moles/Vol] 138 mmol/L 133-145 [facility] Anion gap in Serum or Plasma Ordered By: Victor M Rojas on 01-22-2025 Anion gap [Moles/Vol] 15 mmol/L 5-15 [facility] BUN/creatinine ratioOrdered By: Victor M Rojas on 01-22-2025 Urea nitrogen/Creatinine [Mass ratio] 24.3 mg/mg High 10-20 [facility] Carbon dioxide, total [Moles /volume] in Central venous bloodOrdered By: Victor M Rojas on 01-22-2025 CO2 [Moles/Vol] 18.3 mmol/L Low 21.0-32.0 [facility] Chloride assayOrdered By: Stefan Rojas on 01-22-2025 Chloride [Moles/Vol] 103 mmol/L 98-108 [facility] Glomerular filtration rate ( GFR) estimation/1.73 sq m using serum, plasma, or whole bOrdered By: Victor M Rojas on 01-22-2025 GFR/1.73 sq M.predicted among non-blacks MDRD (S/P/Bld) [Vol rate/Area] 33 mL/min/{1.73_m2} Low >60 [facility] Comment on above: mL/min/1.73m2 CKD-EP I Creatinine Equation (2020) Potassium measurement (mass/ volume)Ordered By: Victor M Rojas on 01-22-2025 Potassium (Unsp spec) [Mass/Vol] 3.9 mmol/L 3.3-5.1 [facility] Serum creatinine measurement (mass/volume)Ordered By: Victor M Rojas on 01-22-2025 Creatinine [Mass/Vol] 1.96 mg/dL High 0.70-1.20 [facility] Serum glucose measurement (m ass/volume)Ordered By: Victor M Darwinkelly on 01-22-2025 Glucose [Mass/Vol] 83 mg/dL 70-99 [facility] Serum or plasma albumin akash urement (mass/volume)Ordered By: Victor M Granadosluiskaran on 01-22-2025 Albumin [Mass/Vol] 3.3 g/dL Low 3.4-4.8 [facility] Serum or plasma calcium akash urement (mass/volume)Ordered By: Stefanvianeyleonaprice Granadosluiskaran on 01-22-2025 Calcium [Mass/Vol] 8.2 mg/dL 7.6-11.0 [facility] Serum or plasma urea nitroge n measurement (mass/volume)Ordered By: Victor M Granadosluiskaran on 01-22-2025 Urea nitrogen [Mass/Vol] 48 mg/dL High 4-19 [facility] Sodium levelOrdered By: Stefanvianey wynn Bob on 01-22-2025 Sodium [Moles/Vol] 136 mmol/L 133-145 [facility] Absolute lymphocyte countOrd ered By: Brandonleonaprice Granadosluiskaran on 01-20-2025 Lymphocytes Auto (Unsp spec) [#/Vol] 1.51 10*3/uL 0.83-4.51 [facility] Absolute neutrophil countOrd ered By: Victor M Granadosluiskaran on 01-20-2025 Neutrophils (Bld) [#/Vol] 6.1 10*3/uL 2.0-7.7 [facility] Anion gap in Serum or Plasma Ordered By: Milyprice Granadosluiskaran on 01-20-2025 Anion gap [Moles/Vol] 16 mmol/L High 5-15 [facility] Automated lymphocyte count a s percentage of total leukocytesOrdered By: Milyprice Granadosluiskaran on 01-20-2025 Lymphocytes/100 WBC Auto (Unsp spec) 16.5 % Low 19-41 [facility] BUN/creatinine ratioOrdered By: Victor M Granadosluiskaran on 01-20-2025 Urea nitrogen/Creatinine [Mass ratio] 16.1 mg/mg 10-20 [facility] Basophil percentageOrdered B y: Victor M Rojas on 01-20-2025 Basophils/100 WBC (Bld) 0.3 % 0-1 [facility] Carbon dioxide, total [Moles /volume] in Central venous bloodOrdered By: Victor M Rojas on 01-20-2025 CO2 [Moles/Vol] 19.5 mmol/L Low 21.0-32.0 [facility] Chloride assayOrdered By: Stefan Rojas on 01-20-2025 Chloride [Moles/Vol] 103 mmol/L 98-108 [facility] Eosinophil percentageOrdered By: Victor M Rojas on 01-20-2025 Eosinophils/100 WBC (Bld) 1.2 % 0-5 [facility] Erythrocyte distribution wid th ratioOrdered By: radha Rojas on 01-20-2025 Erythrocyte distribution width (RBC) [Ratio] 14.9 % High 11.6-14.6 [facility] Erythrocyte distribution wid th standard deviationOrdered By: Victor M Rojas on 01-20-2025 Erythrocyte distribution width (RBC) [Ratio] 47.9 fl High 35.1-43.9 [facility] Glomerular filtration rate ( GFR) estimation/1.73 sq m using serum, plasma, or whole bOrdered By: Victor M Rojas on 01-20-2025 GFR/1.73 sq M.predicted among non-blacks MDRD (S/P/Bld) [Vol rate/Area] 29 mL/min/{1.73_m2} Low >60 [facility] Comment on above: mL/min/1.73m2 CKD-EP I Creatinine Equation (2020) Hematocrit Auto (Bld) [Volum e fraction]Ordered By: Victor M Rojas on 01-20-2025 Hematocrit (Bld) [Volume fraction] 42.5 % 40-54 [facility] Hemoglobin measurementOrdere d By: Victor M Rojas on 01-20-2025 Hemoglobin (Bld) [Mass/Vol] 14.0 g/dL 13.0-16.5 [facility] Immature granulocytes/100 WB C Auto (Bld)Ordered By: Victor M Rojas on 01-20-2025 Immature granulocytes/100 WBC (Bld) 2.100 % High 0.0-0.9 [facility] Comment on above: IG% - Immature Granu locytes (promyelocytes, myelocytes and metamyelocytes) > 1% indicates that a LEFT SHIFT is Present. MCV (mean corpuscular volume ) determinationOrdered By: Victor M Rojas on 01-20-2025 MCV (RBC) [Entitic vol] 88.4 fL 80-94 [facility] Mean corpuscular hemoglobin (MCH) determinationOrdered By: radha Rojas on 01-20-2025 MCH (RBC) [Entitic mass] 29.1 pg 27.0-32.0 [facility] Mean corpuscular hemoglobin concentration (MCHC) determinationOrdered By: vianeymiamiprice Rojas on 01-20-2025 MCHC (RBC) [Mass/Vol] 32.9 g/dL 32-36 [facility] Mean platelet volume determi nationOrdered By: Victor M Rojas on 01-20-2025 Platelet mean volume (Bld) [Entitic vol] 11.6 fL 6.2-12.0 [facility] Monocyte percentageOrdered B y: Victor M Rojas on 01-20-2025 Monocytes/100 WBC (Bld) 13.4 % High 0-10 [facility] Neutrophil percentageOrdered By: radha Rojas on 01-20-2025 Neutrophils/100 WBC (Bld) 66.5 % 47-70 [facility] Nucleated red blood cell per centageOrdered By: Victor M Rojas on 01-20-2025 Nucleated RBC/100 WBC (Bld) [Ratio] 0 % 0-5 [facility] Platelet countOrdered By: Stefan Rojas on 01-20-2025 Platelets (Bld) [#/Vol] 218 10*3/uL 150-450 [facility] Potassium measurement (mass/ volume)Ordered By: Victor M Rojas on 01-20-2025 Potassium (Unsp spec) [Mass/Vol] 4.0 mmol/L 3.3-5.1 [facility] RBC Auto (Bld) [#/Vol]Ordere d By: Victor M Rojas on 01-20-2025 RBC (Bld) [#/Vol] 4.81 10*6/uL 4.6-6.2 [facility] Serum creatinine measurement (mass/volume)Ordered By: Victor M Rojas on 01-20-2025 Creatinine [Mass/Vol] 2.19 mg/dL High 0.70-1.20 [facility] Serum glucose measurement (m ass/volume)Ordered By: VictorM Rojas on 01-20-2025 Glucose [Mass/Vol] 211 mg/dL High 70-99 [facility] Serum or plasma albumin akash urement (mass/volume)Ordered By: Victor M Rojas on 01-20-2025 Albumin [Mass/Vol] 3.3 g/dL Low 3.4-4.8 [facility] Serum or plasma calcium akash urement (mass/volume)Ordered By: Vitcor M Rojas on 01-20-2025 Calcium [Mass/Vol] 8.4 mg/dL 7.6-11.0 [facility] Serum or plasma urea nitroge n measurement (mass/volume)Ordered By: Victor M Rojas on 01-20-2025 Urea nitrogen [Mass/Vol] 35 mg/dL High 4-19 [facility] Sodium levelOrdered By: Brandon perezkandis Bob on 01-20-2025 Sodium [Moles/Vol] 139 mmol/L 133-145 [facility] White blood cell (WBC) count Ordered By: Victor M Rojas on 01-20-2025 WBC (Bld) [#/Vol] 9.2 10*3/uL 4.4-11.0 [facility] CNOVon 01-14-2025 CNOV Office Visit (URALANT ) ELIZABETH MODI ([id number]) 1940 [facility] Date Time Provider Department 01/14/25 9:15 AM [...] patient: Yes Procedure confirmed with physician and operations support manager: Yes UNIVERSAL PROTOCOL / SAFETY CHECKLIST Procedure [...] provided wit (more content not included)... Normal [facility] Anion gap in Serum or Plasma Ordered By: Victor M Rojas on 12-18-2024 Anion gap [Moles/Vol] 14 mmol/L 5-15 [facility] BUN/creatinine ratioOrdered By: Victor M Rojas on 12-18-2024 Urea nitrogen/Creatinine [Mass ratio] 18.6 mg/mg 10-20 [facility] Bilirubin, totalOrdered By: Victor M Rojas on 12-18-2024 Bilirubin [Mass/Vol] 0.79 mg/dL 0.00-1.30 [facility] Calculated very low density lipoprotein (VLDL) cholesterol measurementOrdered By: Victor M Rojas on 12-18-2024 Calculated very low density lipoprotein (VLDL) cholesterol measurement 25 mg/dL 5-40 [facility] Carbon dioxide, total [Moles /volume] in Central venous bloodOrdered By: Victor M Rojas on 12-18-2024 CO2 [Moles/Vol] 19.2 mmol/L Low 21.0-32.0 [facility] Chloride assayOrdered By: Stefan Rojas on 12-18-2024 Chloride [Moles/Vol] 105 mmol/L 98-108 [facility] Erythrocyte distribution wid th ratioOrdered By: Victor M Rojas on 12-18-2024 Erythrocyte distribution width (RBC) [Ratio] 14.9 % High 11.6-14.6 [facility] Erythrocyte distribution wid th standard deviationOrdered By: Victor M Rojas on 12-18-2024 Erythrocyte distribution width (RBC) [Ratio] 48.5 fl High 35.1-43.9 [facility] Glomerular filtration rate ( GFR) estimation/1.73 sq m using serum, plasma, or whole bOrdered By: Victor M Rojas on 12-18-2024 GFR/1.73 sq M.predicted among non-blacks MDRD (S/P/Bld) [Vol rate/Area] 38 mL/min/{1.73_m2} Low >60 [facility] Comment on above: mL/min/1.73m2 CKD-EP I Creatinine Equation (2020) Hematocrit Auto (Bld) [Volum e fraction]Ordered By: Victor M Rojas on 12-18-2024 Hematocrit (Bld) [Volume fraction] 44.3 % 40-54 [facility] Hemoglobin A1c percentageOrd ered By: Victor M Rojas on 12-18-2024 HbA1c (Bld) [Mass fraction] 8.8 % High <5.7 [facility] Comment on above: Normal < 5.7 % Predi abetic 5.7 - 6.4 % Diabetic >or= 6.5 % Please note range changes. Hemoglobin measurementOrdere d By: Victor M Rojas on 12-18-2024 Hemoglobin (Bld) [Mass/Vol] 14.1 g/dL 13.0-16.5 [facility] LDL calc ser/plasOrdered By: Victor M Rojas on 12-18-2024 Cholesterol in LDL [Mass/Vol] 48 mg/dL [facility] Comment on above: Qzgwsxeisl=350-839 m g/dL & Higher Autl=616 mg/dL or greater Laboratory - Chemistry and C hemistry - challengeOrdered By: Victor M Rojas on 12-18-2024 AST [Catalytic activity/Vol] 27 U/L <38 [facility] MCV (mean corpuscular volume ) determinationOrdered By: Victor M Rojas on 12-18-2024 MCV (RBC) [Entitic vol] 89.1 fL 80-94 [facility] Mean corpuscular hemoglobin (MCH) determinationOrdered By: Victor M Rojas on 12-18-2024 MCH (RBC) [Entitic mass] 28.4 pg 27.0-32.0 [facility] Mean corpuscular hemoglobin concentration (MCHC) determinationOrdered By: Victor M Rojas on 12-18-2024 MCHC (RBC) [Mass/Vol] 31.8 g/dL Low 32-36 [facility] Mean platelet volume determi nationOrdered By: Victor M Rojas on 12-18-2024 Platelet mean volume (Bld) [Entitic vol] 11.5 fL 6.2-12.0 [facility] Platelet countOrdered By: Stefan Rojas on 12-18-2024 Platelets (Bld) [#/Vol] 218 10*3/uL 150-450 [facility] Potassium measurement (mass/ volume)Ordered By: Victor M Rojas on 12-18-2024 Potassium (Unsp spec) [Mass/Vol] 4.3 mmol/L 3.3-5.1 [facility] RBC Auto (Bld) [#/Vol]Ordere d By: Victor M Rojas on 12-18-2024 RBC (Bld) [#/Vol] 4.97 10*6/uL 4.6-6.2 [facility] Screening total cholesterol/ high density lipoprotein (HDL) cholesterol ratioOrdered By: Victor M Rojas on 12-18-2024 Cholesterol.total/Cholest giuliana in HDL [Mass ratio] 4.53 {ratio} [facility] Serum creatinine measurement (mass/volume)Ordered By: Victor M Rojas on 12-18-2024 Creatinine [Mass/Vol] 1.74 mg/dL High 0.70-1.20 [facility] Serum globulin measurementOr dered By: Victor M Rojas on 12-18-2024 Globulin (S) [Mass/Vol] 3.5 g/dL 2.2-4.2 [facility] Serum glucose measurement (m ass/volume)Ordered By: Victor M Rojas on 12-18-2024 Glucose [Mass/Vol] 82 mg/dL 70-99 [facility] Serum or plasma alanine mojica otransferase (ALT) measurementOrdered By: Stefanradha Rojas on 12-18-2024 ALT [Catalytic activity/Vol] 20 U/L <47 [facility] Serum or plasma albumin akash urement (mass/volume)Ordered By: Stefantianna Rojas on 12-18-2024 Albumin [Mass/Vol] 3.3 g/dL Low 3.4-4.8 [facility] Serum or plasma albumin/glob ulin mass ratioOrdered By: [facility] Darwinkaran on 12-18-2024 Albumin/Globulin [Mass ratio] 1.0 {ratio} 0.9-2.4 [facility] Serum or plasma alkaline marielos sphatase measurementOrdered By: [facility] Granadoskaran 12-18-2024 ALP [Catalytic activity/Vol] 117 U/L 40-129 [facility] Serum or plasma calcium akash urement (mass/volume)Ordered By: Victor M Rojas 12-18-2024 Calcium [Mass/Vol] 8.8 mg/dL 7.6-11.0 [facility] Serum or plasma cholesterol in HDL measurement (mass/volume)Ordered By: Stefanradha Granadoskaran 12-18-2024 Cholesterol in HDL [Mass/Vol] 21 mg/dL Low >40 [facility] Comment on above: National Cholesterol Education Program (NCEP) guidelines:<40 mg/dL: Low HDL-cholesterol (major risk factor for CHD)>= 60 mg/dL: High HDL-cholesterol (negative risk factor for CHD)HDL-cholesterol is affected by a number of factors, e.g. smoking, exercise, hormones, sex and age. Serum or plasma cholesterol measurement (mass/volume)Ordered By: [facility] Granadoskaran on 12-18-2024 Cholesterol [Mass/Vol] 94 mg/dL <201 [facility] Comment on above: Cholesterol level, D esirable <200 mg/dLBorderline high cholesterol 200-239 mg/dLHigh cholesterol >=240 mg/dLRecommendations of the NCEP Adult Treatment Panel for the following risk-cutoff thresholds for the [place] population. Serum or plasma urea nitroge n measurement (mass/volume)Ordered By: Victor M Rojas on 12-18-2024 Urea nitrogen [Mass/Vol] 32 mg/dL High 4-19 [facility] Sodium levelOrdered By: Brandon perezkandis Bob on 12-18-2024 Sodium [Moles/Vol] 138 mmol/L 133-145 [facility] TSH DL <= 0.005 mIU/L QnOrde red By: Victor M Rojas on 12-18-2024 TSH Qn 1.380 uIU/mL 0.300-4.200 [facility] Total proteinOrdered By: Prosper lonnieprice Rojas on 12-18-2024 Protein [Mass/Vol] 6.8 g/dL 5.9-8.4 [facility] Triglycerides measurementOrd ered By: Victor M Rojas on 12-18-2024 Triglyceride [Mass/Vol] 125 mg/dL <199 [facility] Comment on above: The drugs N-Acetylcy steine and Metamizole may falsely depress this assay. Normal range: <150 mg/dLBorderline High: 150-199 mg/dLHigh: 200-499 mg/dLVery High: >500 mg/dL White blood cell (WBC) count Ordered By: Victor M Rojas on 12-18-2024 WBC (Bld) [#/Vol] 7.7 10*3/uL 4.4-11.0 [facility] Anion gap in Serum or Plasma Ordered By: Victor M Rojas on 11-20-2024 Anion gap [Moles/Vol] 13 mmol/L 5-15 [facility] BUN/creatinine ratioOrdered By: Victor M Rojas on 11-20-2024 Urea nitrogen/Creatinine [Mass ratio] 16.5 mg/mg 10-20 [facility] Carbon dioxide, total [Moles /volume] in Central venous bloodOrdered By: Victor M Rojas on 11-20-2024 CO2 [Moles/Vol] 20.9 mmol/L Low 21.0-32.0 [facility] Chloride assayOrdered By: Stefan Rojas on 11-20-2024 Chloride [Moles/Vol] 104 mmol/L 98-108 [facility] Glomerular filtration rate ( GFR) estimation/1.73 sq m using serum, plasma, or whole bOrdered By: Victor M Rojas on 11-20-2024 GFR/1.73 sq M.predicted among non-blacks MDRD (S/P/Bld) [Vol rate/Area] 38 mL/min/{1.73_m2} Low >60 [facility] Comment on above: mL/min/1.73m2 CKD-EP I Creatinine Equation (2020) Potassium measurement (mass/ volume)Ordered By: VictorM Rojas on 11-20-2024 Potassium (Unsp spec) [Mass/Vol] 4.2 mmol/L 3.3-5.1 [facility] Serum creatinine measurement (mass/volume)Ordered By: Victor M Rojas on 11-20-2024 Creatinine [Mass/Vol] 1.75 mg/dL High 0.70-1.20 [facility] Serum glucose measurement (m ass/volume)Ordered By: Victor M Rojas on 11-20-2024 Glucose [Mass/Vol] 130 mg/dL High 70-99 [facility] Serum or plasma albumin akash urement (mass/volume)Ordered By: Victor M Rojas on 11-20-2024 Albumin [Mass/Vol] 3.5 g/dL 3.4-4.8 [facility] Serum or plasma calcium akash urement (mass/volume)Ordered By: Victor M Rojas on 11-20-2024 Calcium [Mass/Vol] 8.8 mg/dL 7.6-11.0 [facility] Serum or plasma urea nitroge n measurement (mass/volume)Ordered By: Victor M Rojas on 11-20-2024 Urea nitrogen [Mass/Vol] 29 mg/dL High 4-19 [facility] Sodium levelOrdered By: Brandon Rojas on 11-20-2024 Sodium [Moles/Vol] 139 mmol/L 133-145 [facility] Calculated very low density lipoprotein (VLDL) cholesterol measurementOrdered By: Christina Whipple on 11-07-2024 Calculated very low density lipoprotein (VLDL) cholesterol measurement 34 mg/dL 5-40 [facility] LDL calc ser/plasOrdered By: Christina Whipple on 11-07-2024 Cholesterol in LDL [Mass/Vol] 43 mg/dL [facility] Comment on above: Krncfjmlzn=181-801 m g/dL & Higher Zxtf=605 mg/dL or greater Screening total cholesterol/ high density lipoprotein (HDL) cholesterol ratioOrdered By: Christina Whipple on 11-07-2024 Cholesterol.total/Cholest giuliana in HDL [Mass ratio] 4.60 {ratio} [facility] Serum or plasma cholesterol in HDL measurement (mass/volume)Ordered By: Christina Whipple on 11-07-2024 Cholesterol in HDL [Mass/Vol] 21 mg/dL Low >40 [facility] Comment on above: National Cholesterol Education Program (NCEP) guidelines:<40 mg/dL: Low HDL-cholesterol (major risk factor for CHD)>= 60 mg/dL: High HDL-cholesterol (negative risk factor for CHD)HDL-cholesterol is affected by a number of factors, e.g. smoking, exercise, hormones, sex and age. Serum or plasma cholesterol measurement (mass/volume)Ordered By: Christina Whipple on 11-07-2024 Cholesterol [Mass/Vol] 99 mg/dL <201 [facility] Comment on above: Cholesterol level, D esirable <200 mg/dLBorderline high cholesterol 200-239 mg/dLHigh cholesterol >=240 mg/dLRecommendations of the NCEP Adult Treatment Panel for the following risk-cutoff thresholds for the [place] population. Triglycerides measurementOrd ered By: Christina Whipple on 11-07-2024 Triglyceride [Mass/Vol] 171 mg/dL <199 [facility] Comment on above: The drugs N-Acetylcy [...] nitrogen/Creatinine [Mass ratio] 21.7 mg/mg High 10-20 [facility] Carbon dioxide, total [Moles /volume] in Central venous bloodOrdered By: Victor M Rojas on 10-23-2024 CO2 [Moles/Vol] 19.8 mmol/L Low 21.0-32.0 [facility] Chloride assayOrdered By: Stefan Rojas on 10-23-2024 Chloride [Moles/Vol] 106 mmol/L 98-108 [facility] Glomerular filtration rate ( GFR) estimation/1.73 sq m using serum, plasma, or whole bOrdered By: Victor M Rojas on 10-23-2024 GFR/1.73 sq M.predicted among non-blacks MDRD (S/P/Bld) [Vol rate/Area] 39 mL/min/{1.73_m2} Low >60 [facility] Comment on above: mL/min/1.73m2 CKD-EP I Creatinine Equation (2020) Potassium measurement (mass/ volume)Ordered By: Victor M Rojas on 10-23-2024 Potassium (Unsp spec) [Mass/Vol] 4.0 mmol/L 3.3-5.1 [facility] Serum creatinine measurement (mass/volume)Ordered By: Victor M Rojas on 10-23-2024 Creatinine [Mass/Vol] 1.73 mg/dL High 0.70-1.20 [facility] Serum glucose measurement (m ass/volume)Ordered By: Victor M Rojas on 10-23-2024 Glucose [Mass/Vol] 129 mg/dL High 70-99 [facility] Serum or plasma albumin akash urement (mass/volume)Ordered By: Victor M Rojas on 10-23-2024 Albumin [Mass/Vol] 3.3 g/dL Low 3.4-4.8 [facility] Serum or plasma calcium akash urement (mass/volume)Ordered By: Victor M Rojas on 10-23-2024 Calcium [Mass/Vol] 8.6 mg/dL 7.6-11.0 [facility] Serum or plasma urea nitroge n measurement (mass/volume)Ordered By: Victor M Rojas on 10-23-2024 Urea nitrogen [Mass/Vol] 38 mg/dL High 4-19 [facility] Sodium levelOrdered By: Brandon Rojas on 10-23-2024 Sodium [Moles/Vol] 137 mmol/L 133-145 [facility] Cardiology Visit Reporton Cardiology Visit Report [facility] [address] [place] [address] OFFICE VISIT Date of Service: 10/16/24 MR#: [id number] Acct: [id number] Name: ELIZABETH MODI Rep #: [id number] : 1940 Provider: GILL Connor Age/Sex: 84/M Location: [facility] Status: Signed HPI HPI History of Present [...] x 1 in December of 2021 at [facility] in [place]. 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 Normal [facility] Elbow min 3 Viewson 10-16-19 Elbow min 3 Views [facility] Imaging Services [address] [place], [place] [id number] Elbow min 3 Views MR#: [id number] Acct: [id number] Name: ELIZABETH MODI Rep #: [id number] : 1940 M 84 From: Edy Kapadia MD PCP: Dr. Diana Salmeron MD Status: REG ER Study: Elbow min 3 Views Date of Exam: 10/15/24 Exam# [id number] Ordering Dr: Jesse Angel DO EXAM: Left elbow CLINICAL HISTORY: Injury, pain COMPARISON: None TECHNIQUE: Three views FINDINGS: No acute fracture or dislocation. Moderate joint space narrowing and osteophyte formation consistent with moderate arthrosis. Normal soft tissues. RAD/Elbow min 3 Views IMPRESSION: No acute fracture or dislocation. Moderate arthrosis. Reading Location: [id number] CC: Dr. Diana Salmeron MD; Dr. Jesse Angel DO Supervisor Operations: Signed Normal [facility] Emergency Department Summary on 10-15-2024 Emergency Department Summary [facility] Medical Records Department [address] [place] [address] Emergency Department Summary 10/15/24 MR#: [id number] Acct: [id number] Name: ELIZABETH MODI Rep #: [id number] : 1940 84 From: Jesse Angel DO [...] of his last tetanus. 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 Normal [facility] Orb Sella Post Fossa Ear w/o on 10-15-2024 Orb Sella Post Fossa Ear w/o [facility] Imaging Services [address] [place] [id number] Orb Sella Post Fossa Ear w/o MR#: [id number] Acct: [id number] Name: ELIZABETH MODI Rep #: [id number] : 1940 M 84 From: Edy Kapadia MD PCP: Dr. Diana Salmeron MD Status: REG ER Study: Orb Sella Post Fossa Ear w/o Date of Exam: Exam# [id number] Ordering Dr: Jesse Angel DO PROCEDURE: ORB [...] ORBITAL FRACTURE OR RETROBULBAR HEMATOMA. Reading Location: [facility] CC: Dr. Diana Salmeron MD; Dr. Jesse Angel, DO Supervisor Operations: Signed Normal [facility] Bacteria Ur Culton 5 Bacteria identified [...] straight catheterization for???urine???collecti on. Normal [facility] Comment on above: Performed By: #### 6 30-4 #### [facility] CLIA [id number] [address] [place] [address] [place] CNOVon 10-01-2024 CNOV Office Visit (UROLWS ) ELIZABETH MODI ([id number]) 1940 M [facility] Date Time Provider Department 10/01/24 1:00 [...] Nikolai Portillo PA-C 10/01/2024 2:58 PM Signed [facility] PATIENT CLINIC NOTE (M) Some elements [...] (ADULTS MULTIVITAMIN ORAL) Take by mouth. vit C,W-Bk-yieef-lutein-ze axan (PRESERVISION AREDS-2) 250-90-40-1 mg Take 1 [...] mg ta (more content not included)... [facility]UROLWS[facility] ELIZABETH MODI ([id number]) 1940 M T Date Time Provider Department [...] Diagnosis:Gross hematuria [R31.0] Order(s):CT UROGRAM WO/W IVCON [5604034] Order #: [id number] FUTURE iv contrast (will be provided with [...] MULTIVITAMIN ORAL) Take by mouth. - vit C,W-Bx-sbxml-lutein-ze axan (PRESERVISION AREDS-2) 250-90-40-1 mg Take 1 [...] (more content not included)... Normal [facility] Anion gap in Serum or Plasma Ordered By: Victor M Rojas on 09-18-2024 Anion gap [Moles/Vol] 14 mmol/L 5-15 [facility] BUN/creatinine ratioOrdered By: Victor M Rojas on 09-18-2024 Urea nitrogen/Creatinine [Mass ratio] 14.2 mg/mg 10-20 [facility] Bilirubin, totalOrdered By: Victor M Rojas on 09-18-2024 Bilirubin [Mass/Vol] 0.55 mg/dL 0.00-1.30 [facility] Calculated very low density lipoprotein (VLDL) cholesterol measurementOrdered By: Victor M Rojas on 09-18-2024 Calculated very low density lipoprotein (VLDL) cholesterol measurement 38 mg/dL [facility] VLDL Cholesterol 38 mg/dL [facility] Carbon dioxide, total [Moles /volume] in Central venous bloodOrdered By: Victor M Rojas on 09-18-2024 CO2 [Moles/Vol] 19.8 mmol/L Low 21.0-32.0 [facility] Chloride assayOrdered By: Stefan Rojas on 09-18-2024 Chloride [Moles/Vol] 102 mmol/L 98-108 [facility] Erythrocyte distribution wid th (RBC) [Ratio]Ordered By: Victor M Rojas on 09-18-2024 Erythrocyte distribution width (RBC) [Entitic vol] 47.1 fL High 35.1-43.9 [facility] Erythrocyte distribution wid th ratioOrdered By: Victor M Rojas on 09-18-2024 Erythrocyte distribution width (RBC) [Ratio] 14.4 % 11.6-14.6 [facility] Erythrocyte distribution wid th standard deviationOrdered By: Victor M Rojas on 09-18-2024 Erythrocyte distribution width (RBC) [Ratio] 47.1 fl High 35.1-43.9 [facility] GFR/1.73 sq M.predicted jacobo g non-blacks MDRD (S/P/Bld) [Vol rate/Area]Ordered By: Victor M Rojas on 09-18-2024 Estimated GFR (MDRD) Non-Af Amer 27 Low >60 [facility] Comment on above: mL/min/1.73m2 CKD-EP I Creatinine Equation (2020) Glomerular filtration rate ( GFR) estimation/1.73 sq m using serum, plasma, or whole bOrdered By: Victor M Rojas on 09-18-2024 GFR/1.73 sq M.predicted among non-blacks MDRD (S/P/Bld) [Vol rate/Area] 27 mL/min/{1.73_m2} Low >60 [facility] Comment on above: mL/min/1.73m2 CKD-EP I Creatinine Equation (2020) Hematocrit Auto (Bld) [Volum e fraction]Ordered By: Victor M Rojas on 09-18-2024 Hematocrit (Bld) [Volume fraction] 41.2 % 40-54 [facility] Hemoglobin A1c percentageOrd ered By: Victor M Rojas on 09-18-2024 HbA1c (Bld) [Mass fraction] 11.3 % >5.7 [facility] Hemoglobin measurementOrdere d By: Victor M Rojas on 09-18-2024 Hemoglobin (Bld) [Mass/Vol] 13.5 g/dL 13.0-16.5 [facility] LDL calc ser/plasOrdered By: Victor M Rojas on 09-18-2024 Cholesterol in LDL [Mass/Vol] 44 mg/dL [facility] Comment on above: Axqxdmfuhc=036-951 m g/dL & Higher Rsnz=913 mg/dL or greater LDL Cholesterol, Calculated 44 mg/dL [facility] Comment on above: Oyfqypfhjh=958-714 m g/dL & Higher Kfnv=969 mg/dL or greater Laboratory - Chemistry and C hemistry - challengeOrdered By: Victor M Rojas on 09-18-2024 AST [Catalytic activity/Vol] 43 U/L High <38 [facility] Comment on above: Hemolysis present, R esults could be affected. MCV (mean corpuscular volume ) determinationOrdered By: Victor M Rojas on 09-18-2024 MCV (RBC) [Entitic vol] 89.6 fL 80-94 [facility] Mean corpuscular hemoglobin (MCH) determinationOrdered By: Victor M Rojas 09-18-2024 MCH (RBC) [Entitic mass] 29.3 pg 27.0-32.0 [facility] Mean corpuscular hemoglobin concentration (MCHC) determinationOrdered By: Victor M Rojas on 09-18-2024 MCHC (RBC) [Mass/Vol] 32.8 g/dL 32-36 [facility] Mean platelet volume determi nationOrdered By: Victor M Rojas on 09-18-2024 Platelet mean volume (Bld) [Entitic vol] 12.0 fL 6.2-12.0 [facility] Platelet countOrdered By: Stefan Rojas on 09-18-2024 Platelets (Bld) [#/Vol] 209 10*3/uL 150-450 [facility] Potassium (Unsp spec) [Mass/ Vol]Ordered By: Victor M Rojas on 09-18-2024 Potassium [Moles/Vol] 4.1 mmol/L 3.3-5.1 [facility] Comment on above: Hemolysis present, R esults could be affected. Potassium measurement (mass/ volume)Ordered By: Victor M Rojas on 09-18-2024 Potassium (Unsp spec) [Mass/Vol] 4.1 mmol/L 3.3-5.1 [facility] Comment on above: Hemolysis present, R esults could be affected. RBC Auto (Bld) [#/Vol]Ordere d By: Victor M Rojas on 09-18-2024 RBC (Bld) [#/Vol] 4.60 10*6/uL 4.6-6.2 [facility] Screening total cholesterol/ high density lipoprotein (HDL) cholesterol ratioOrdered By: Victor M Rojas on 09-18-2024 Cholesterol.total/Cholest giuliana in HDL [Mass ratio] 4.29 {ratio} [facility] Serum creatinine measurement (mass/volume)Ordered By: Victor M Rojas on 09-18-2024 Creatinine [Mass/Vol] 2.35 mg/dL High 0.70-1.20 [facility] Serum globulin measurementOr dered By: Victor M Rojas on 09-18-2024 Globulin (S) [Mass/Vol] 3.4 g/dL 2.2-4.2 [facility] Serum glucose measurement (m ass/volume)Ordered By: Victor M Rojas on 09-18-2024 Glucose [Mass/Vol] 287 mg/dL High 70-99 [facility] Serum or plasma alanine mojica otransferase (ALT) measurementOrdered By: Victor M Rojas on 09-18-2024 ALT [Catalytic activity/Vol] 41 U/L <47 [facility] Serum or plasma albumin akash urement (mass/volume)Ordered By: Victor M Rojas on 09-18-2024 Albumin [Mass/Vol] 3.4 g/dL 3.4-4.8 [facility] Serum or plasma albumin/glob ulin mass ratioOrdered By: Victor M Rojas on 09-18-2024 Albumin/Globulin [Mass ratio] 1.0 {ratio} 0.9-2.4 [facility] Serum or plasma alkaline marielos sphatase measurementOrdered By: Victor M Rojas on 09-18-2024 ALP [Catalytic activity/Vol] 113 U/L 40-129 [facility] Serum or plasma calcium akash urement (mass/volume)Ordered By: Victor M Rojas on 09-18-2024 Calcium [Mass/Vol] 9.0 mg/dL 7.6-11.0 [facility] Serum or plasma cholesterol in HDL measurement (mass/volume)Ordered By: Victor M Rojas on 09-18-2024 Cholesterol in HDL [Mass/Vol] 25 mg/dL Low >40 [facility] Comment on above: National Cholesterol Education Program (NCEP) guidelines:<40 mg/dL: Low HDL-cholesterol (major risk factor for CHD)>= 60 mg/dL: High HDL-cholesterol (negative risk factor for CHD)HDL-cholesterol is affected by a number of factors, e.g. smoking, exercise, hormones, sex and age. Serum or plasma cholesterol measurement (mass/volume)Ordered By: Victor M Rojas on 09-18-2024 Cholesterol [Mass/Vol] 108 mg/dL <201 [facility] Comment on above: Cholesterol level, D esirable <200 mg/dLBorderline high cholesterol 200-239 mg/dLHigh cholesterol >=240 mg/dLRecommendations of the NCEP Adult Treatment Panel for the following risk-cutoff thresholds for the [place] population. Serum or plasma urea nitroge n measurement (mass/volume)Ordered By: Victor M Rojas on 09-18-2024 Urea nitrogen [Mass/Vol] 33 mg/dL High 4-19 [facility] Sodium levelOrdered By: Brandon wynn Darwinluiskaran on 09-18-2024 Sodium [Moles/Vol] 135 mmol/L 133-145 [facility] TSH DL <= 0.005 mIU/L QnOrde red By: Stefanradha Granadosluiskaran on 09-18-2024 Thyroid Stimulating Hormone (TSH) 3.520 uIU/mL 0.300-4.200 [facility] TSH Qn 3.520 uIU/mL 0.300-4.200 [facility] Total proteinOrdered By: Prosper flemingprice Rojas on 09-18-2024 Protein [Mass/Vol] 6.7 g/dL 5.9-8.4 [facility] Triglycerides measurementOrd ered By: Stefanvianeyleonaprice Granadosluiskaran on 09-18-2024 Triglyceride [Mass/Vol] 192 mg/dL <199 [facility] Comment on above: The drugs N-Acetylcy steine and Metamizole may falsely depress this assay. Normal range: <150 mg/dLBorderline High: 150-199 mg/dLHigh: 200-499 mg/dLVery High: >500 mg/dL White blood cell (WBC) count Ordered By: Victor M Rojas on 09-18-2024 WBC (Bld) [#/Vol] 8.5 10*3/uL 4.4-11.0 [facility] Gastroenterology Visit Repor ton 09-06-2024 Gastroenterology Visit Report [facility] Gastroenterology [address] [place] [address] OFFICE VISIT Date of Service: 09/06/24 MR#: [id number] Acct: [id number] Name: ELIZABETH MODI Rep #: [id number] : 1940 Provider: GILL Jefferson Age/Sex: 84/M Location: [email or web address] Status: Signed Intake Vital Signs 01/11/24 07:47 [...] is experiencing diarrhea only once in awhile. 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 [facility] hospitalization 6.23-7.23 for management of choledocholithiasis, calculous cholecystis with [...] daily. CMP ordered. 06.07.24; LFTs stable OV 3; Pt has been doing well. He is [...] body habitus and well nourished [facility] Head: normal to ins (more content not included)... Normal [facility] Anion gap in Serum or Plasma Ordered By: Victor M Rojas on 08-21-2024 Anion gap [Moles/Vol] 14 mmol/L 5-15 [facility] BUN/creatinine ratioOrdered By: Victor M Rojas on 08-21-2024 Urea nitrogen/Creatinine [Mass ratio] 18.2 mg/mg 10-20 [facility] Carbon dioxide, total [Moles /volume] in Central venous bloodOrdered By: Victor M Rojas on 08-21-2024 CO2 [Moles/Vol] 20.5 mmol/L Low 21.0-32.0 [facility] Chloride assayOrdered By: Stefan Rojas on 08-21-2024 Chloride [Moles/Vol] 102 mmol/L 98-108 [facility] GFR/1.73 sq M.predicted jacobo g non-blacks MDRD (S/P/Bld) [Vol rate/Area]Ordered By: Victor M Rojas on 08-21-2024 Estimated GFR (MDRD) Non-Af Amer 31 Low >60 [facility] Comment on above: mL/min/1.73m2 CKD-EP I Creatinine Equation (2020) Glomerular filtration rate ( GFR) estimation/1.73 sq m using serum, plasma, or whole bOrdered By: Victor M Rojas on 08-21-2024 GFR/1.73 sq M.predicted among non-blacks MDRD (S/P/Bld) [Vol rate/Area] 31 mL/min/{1.73_m2} Low >60 [facility] Comment on above: mL/min/1.73m2 CKD-EP I Creatinine Equation (2020) Potassium (Unsp spec) [Mass/ Vol]Ordered By: Victor M Rojas on 08-21-2024 Potassium [Moles/Vol] 4.3 mmol/L 3.3-5.1 [facility] Potassium measurement (mass/ volume)Ordered By: Victor M Rojas on 08-21-2024 Potassium (Unsp spec) [Mass/Vol] 4.3 mmol/L 3.3-5.1 [facility] Serum creatinine measurement (mass/volume)Ordered By: Victor M Rojas on 08-21-2024 Creatinine [Mass/Vol] 2.07 mg/dL High 0.70-1.20 [facility] Serum glucose measurement (m ass/volume)Ordered By: Victor M Rojas on 08-21-2024 Glucose [Mass/Vol] 198 mg/dL High 70-99 [facility] Serum or plasma albumin akash urement (mass/volume)Ordered By: Victor M Rojas on 08-21-2024 Albumin [Mass/Vol] 3.3 g/dL Low 3.4-4.8 [facility] Serum or plasma calcium akash urement (mass/volume)Ordered By: Vitcor M Rojas on 08-21-2024 Calcium [Mass/Vol] 8.8 mg/dL 7.6-11.0 [facility] Serum or plasma urea nitroge n measurement (mass/volume)Ordered By: Victor M Rojas on 08-21-2024 Urea nitrogen [Mass/Vol] 38 mg/dL High 4-19 [facility] Serum phosphorus measurement Ordered By: Victor M Rojas on 08-21-2024 Phosphorus Level 4.2 mg/dL 2.7-4.5 [facility] Sodium levelOrdered By: Brandon Rojas on 08-21-2024 Sodium [Moles/Vol] 136 mmol/L 133-145 [facility] Random urine microalbumin me asurementOrdered By: Victor M Rojas on 08-01-2024 Urine Random Microalbumin 583.0 mg/L NO RANGE EST. [facility] Urine albumin/creatinine rat io for detection of microalbuminuriaOrdered By: Victor M Rojas on 08-01-2024 Urine Microalbumin/Creatinine Ratio 1371.8 mg/g CRE High <30 [facility] Urine creatinine measurement (mass/volume)Ordered By: Victor M Rojas on 08-01-2024 Creatinine (U) [Mass/Vol] 42.50 mg/dL NO RANGE EST. [facility] Blood urea nitrogen (BUN)/cr eatinine ratioOrdered By: Victor M Rojas on 07-24-2024 Urea nitrogen/Creatinine [Mass ratio] 20.5 mg/mg High 10-20 [facility] Carbon dioxide measurementOr dered By: Victor M Rojas on 07-24-2024 CO2 [Moles/Vol] 21.0 mmol/L 21.0-32.0 [facility] Chloride measurementOrdered By: Victor M Rojas on 07-24-2024 Chloride [Moles/Vol] 106 mmol/L 98-107 [facility] Estimated glomerular filtrat ion rate (GFR) AmericanOrdered By: Victor M Rojas on 07-24-2024 Estimated GFR (MDRD) Amer 44 mL/min Low >60 [facility] Comment on above: GFR Calc Glomerular filtration rate ( GFR) estimationOrdered By: Victor M Rojas on 07-24-2024 Estimated GFR (MDRD) Non-Af Amer 36 mL/min Low >60 [facility] Comment on above: Non- GFR Calc GFR/1.73 sq M.predicted among non-blacks MDRD (S/P/Bld) [Vol rate/Area] 36 mL/min/{1.73_m2} Low >60 [facility] Comment on above: Non- GFR Calc Glucose measurementOrdered B y: Victor M Rojas on 07-24-2024 Glucose [Mass/Vol] 230 mg/dL High 74-106 [facility] Comment on above: Glucose result great er than or equal to 200 mg/dLsuggests DIABETES MELLITUS per A.D.A. criteria. Hemoglobin A1c percentageOrd ered By: Victor M Rojas on 07-24-2024 HbA1c (Bld) [Mass fraction] 8.3 % High 3.8-5.6 [facility] Comment on above: Normal < 5.7 % Predi abetic 5.7 - 6.4 % Diabetic >or= 6.5 % Please note range changes. Phosphorus measurementOrdere d By: Victor M Rojas on 07-24-2024 Phosphorus Level 3.4 mg/dL 2.5-4.9 [facility] Potassium measurementOrdered By: Victor M Rojas on 07-24-2024 Potassium [Moles/Vol] 4.3 mmol/L 3.5-5.1 [facility] Serum or plasma albumin akash urement (mass/volume)Ordered By: Victor M Rojas on 07-24-2024 Albumin [Mass/Vol] 2.7 g/dL Low 3.2-5.0 [facility] Serum or plasma calcium akash urement (mass/volume)Ordered By: Victor M Rojas on 07-24-2024 Calcium [Mass/Vol] 8.2 mg/dL Low 8.5-10.1 [facility] Serum or plasma creatinine m easurement (mass/volume)Ordered [...] Urea nitrogen [Mass/Vol] 39 mg/dL High 7-18 [facility] Sodium levelOrdered By: Brandon Rojas on 07-24-2024 Sodium [Moles/Vol] 135 mmol/L Low 136-145 [facility] CT UROGRAM WO/W IVCONon 06-19 CT UROGRAM WO/W IVCON * * *Final Report* * * DATE OF EXAM: Jun 28 2024 2:26PM [facility] 0560 - CT UROGRAM WO/W [...] be communicated with the ordering provider via [employer] staff message or phone message by [employer] within 2 business days of report finalization. --END OF FINDING-- Supervisor Operations: ONEL Transcribe Date/Time: Jul 01 2024 9:40P Dictated by : JARAD ARCOS MD This examination was interpreted and the report reviewed and electronically signed by: JARAD ARCOS MD on Jul 01 2024 9:53PM EST [id number] [id number] Invalid Interpretation Code [facility] Estimated glomerular filtrat ion rate (GFR) AmericanOrdered By: Victor M Rojas on 06-27-2024 Estimated GFR (MDRD) Amer 37 mL/min Low >60 [facility] Comment on above: GFR Calc Glomerular filtration rate ( GFR) estimationOrdered By: Victor M Rojas on 06-27-2024 Estimated GFR (MDRD) Non-Af Amer 31 mL/min Low >60 [facility] Comment on above: Non- GFR Calc Serum or plasma creatinine m easurement (mass/volume)Ordered By: Victor M Rojas on 06-27-2024 Creatinine [Mass/Vol] 2.20 mg/dL High 0.70-1.30 [facility] Comment on above: The validity of the calculated GFR & GFRAA in patients over 70 years has not been determined. Clinical correlation is essential. Beau 06-21-2024 JONAS Telephone (UROLWS) ELIZABEHT MODI ([id number]) 1940 M [facility] Date Time Provider Department 06/21/24 NIKOLAI CONNOR During your visit today, we recorded the following information about you: Anaid Payne MA 06/21/2024 4:28 PM Signed ----- Message from Nikolai Connor PA-C sent at 06/21/2024 3:54 PM EST ----- No infection in the urine No cancer cells in urine, please continue the rest of the testing Nikolai Connor MPAS, [place], Susan Lopez MA 06/25/2024 8:47 AM Signed [...] MULTIVITAMIN ORAL) Take by mouth. - vit C,N-Xf-prled-lutein-ze axan (PRESERVISION AREDS-2) 250-90-40-1 mg Take 1 [...] LUKE TAYLOR on 07/09/[address] [facility] Absolute neutrophil countOrd ered By: Victor M Rojas on 06-20-2024 Neutrophils (Bld) [#/Vol] 5.5 10*3/uL 2.0-7.7 [facility] Albumin to globulin ratioOrd ered By: Victor M Rojas on 06-20-2024 Albumin/Globulin [Mass ratio] 0.7 {ratio} Low 0.9-2.4 [facility] Basophil percentageOrdered B y: Victor M Rojas on 06-20-2024 Basophils/100 WBC (Bld) 0.3 % 0-1 [facility] Bilirubin, totalOrdered By: Victor M Rojas on 06-20-2024 Bilirubin [Mass/Vol] 0.70 mg/dL 0.20-1.00 [facility] Comment on above: For patients on eltr ombopag therapy, use of Dimension [place] TBIL is not recommended. Blood urea nitrogen (BUN)/cr eatinine ratioOrdered By: Victor M Rojas on 06-20-2024 Urea nitrogen/Creatinine [Mass ratio] 19.0 mg/mg 10-20 [facility] Carbon dioxide measurementOr dered By: Victor M Rojas on 06-20-2024 CO2 [Moles/Vol] 24.0 mmol/L 21.0-32.0 [facility] Chloride measurementOrdered By: Victor M Rojas on 06-20-2024 Chloride [Moles/Vol] 104 mmol/L 98-107 [facility] Eosinophil percentageOrdered By: Victor M Rojas on 06-20-2024 Eosinophils/100 WBC (Bld) 2.5 % 0-5 [facility] Erythrocyte distribution wid th (RBC) [Ratio]Ordered By: Victor M Rojas on 06-20-2024 Erythrocyte distribution width (RBC) [Entitic vol] 47.8 fL High 35.1-43.9 [facility] Erythrocyte distribution wid th ratioOrdered By: Victor M Rojas on 06-20-2024 Erythrocyte distribution width (RBC) [Ratio] 14.7 % High 11.6-14.6 [facility] Estimated glomerular filtrat ion rate (GFR) AmericanOrdered By: Victor M Rojas on 06-20-2024 Estimated GFR (MDRD) Amer 51 mL/min Low >60 [facility] Comment on above: GFR Calc Glomerular filtration rate ( GFR) estimationOrdered By: Victor M Rojas on 06-20-2024 Estimated GFR (MDRD) Non-Af Amer 42 mL/min Low >60 [facility] Comment on above: Non- GFR Calc Glucose measurementOrdered B y: Victor M Rojas on 06-20-2024 Glucose [Mass/Vol] 190 mg/dL High 74-106 [facility] Comment on above: Fasting Glucose resu lt greater than or equal to 126 mg/dL suggests DIABETES MELLITUS per A.D.A. criteria. Hematocrit Auto (Bld) [Volum e fraction]Ordered By: Victor M Rojas on 06-20-2024 Hematocrit (Bld) [Volume fraction] 42.8 % 40-54 [facility] Hemoglobin A1c percentageOrd ered By: Victor M Rojas on 06-20-2024 HbA1c (Bld) [Mass fraction] 8.3 % High 3.8-5.6 [facility] Comment on above: Normal < 5.7 % Predi abetic 5.7 - 6.4 % Diabetic >or= 6.5 % Please note range changes. Hemoglobin measurementOrdere d By: Victor M Rojas on 06-20-2024 Hemoglobin (Bld) [Mass/Vol] 13.6 g/dL 13.0-16.5 [facility] High density lipoprotein (HD L) measurementOrdered By: Victor M Rojas on 06-20-2024 Cholesterol in HDL [Mass/Vol] 29 mg/dL Low >40 [facility] Comment on above: The drugs N-Acetylcy steine and Metamizole may falsely depress this assay. Reference Range HDL <40 mg/dL Low HDL Cholesterol HDL >or= 60 mg/dL High HDL Cholesterol Immature granulocytes/100 WB C Auto (Bld)Ordered By: Victor M Rojas on 06-20-2024 Immature granulocytes/100 WBC (Bld) 1.900 % High 0.0-0.9 [facility] Comment on above: IG% - Immature Granu locytes (promyelocytes, myelocytes and metamyelocytes) > 1% indicates that a LEFT SHIFT is Present. Laboratory - Chemistry and C hemistry - challengeOrdered By: Victor M Rojas on 06-20-2024 AST [Catalytic activity/Vol] 37 U/L 15-37 [facility] Comment on above: Slight Hemolysis, Re sult may be falsely increased. Low density lipoprotein (LDL ) cholesterol measurementOrdered By: Victor M Rojas on 06-20-2024 Cholesterol in LDL [Mass/Vol] 46 mg/dL 0-130 [facility] Lymphocytes Auto (Unsp spec) [#/Vol]Ordered By: Victor M Rojas on 06-20-2024 Lymphocytes (Bld) [#/Vol] 1.97 10*3/uL 0.83-4.5 1 [facility] Lymphocytes/100 WBC Auto (Un sp spec)Ordered By: Victor M Rojas on 06-20-2024 Lymphocytes/100 WBC (Bld) 21.8 % 19-41 [facility] MCV (mean corpuscular volume ) determinationOrdered By: Victor M Rojas on 06-20-2024 MCV (RBC) [Entitic vol] 89.9 fL 80-94 [facility] Mean corpuscular hemoglobin (MCH) determinationOrdered By: Victor M Rojas on 06-20-2024 MCH (RBC) [Entitic mass] 28.6 pg 27.0-32.0 [facility] Mean corpuscular hemoglobin concentration (MCHC) determinationOrdered By: Victor M Rojas on 06-20-2024 MCHC (RBC) [Mass/Vol] 31.8 g/dL Low 32-36 [facility] Mean platelet volume determi nationOrdered By: Victor M Rojas on 06-20-2024 Platelet mean volume (Bld) [Entitic vol] 11.9 fL 6.2-12.0 [facility] Monocyte percentageOrdered B y: Victor M Rojas on 06-20-2024 Monocytes/100 WBC (Bld) 13.0 % High 0-10 [facility] Neutrophil percentageOrdered By: Victor M Rojas on 06-20-2024 Neutrophils/100 WBC (Bld) 60.5 % 47-70 [facility] Nucleated red blood cell per centageOrdered By: Victor M Rojas on 06-20-2024 Nucleated RBC/100 WBC (Bld) [Ratio] 0 % 0-5 [facility] Platelet countOrdered By: Stefan Rojas on 06-20-2024 Platelets (Bld) [#/Vol] 239 10*3/uL 150-450 [facility] Potassium measurementOrdered By: Victor M Rojas on 06-20-2024 Potassium [Moles/Vol] 4.2 mmol/L 3.5-5.1 [facility] Comment on above: Slight Hemolysis, Re sult may be falsely increased. RBC Auto (Bld) [#/Vol]Ordere d By: Victor M Rojas on 06-20-2024 RBC (Bld) [#/Vol] 4.76 10*6/uL 4.6-6.2 [facility] Serum anion gap measurementO rdered By: Victor M Rojas on 06-20-2024 Anion gap [Moles/Vol] 8 mmol/L 5-15 [facility] Serum globulin measurementOr dered By: Victor M Rojas on 06-20-2024 Globulin (S) [Mass/Vol] 3.9 g/dL 2.2-4.2 [facility] Serum or plasma alanine mojica otransferase (ALT) measurementOrdered By: Victor M Rojas on 06-20-2024 ALT [Catalytic activity/Vol] 45 U/L 16-61 [facility] Serum or plasma albumin akash urement (mass/volume)Ordered By: Victor M Rojas on 06-20-2024 Albumin [Mass/Vol] 2.8 g/dL Low 3.2-5.0 [facility] Serum or plasma alkaline marielos sphatase measurementOrdered By: Victor M Rojas on 06-20-2024 ALP [Catalytic activity/Vol] 123 U/L High 45-117 [facility] Serum or plasma calcium akash urement (mass/volume)Ordered By: Victor M Rojas on 06-20-2024 Calcium [Mass/Vol] 8.4 mg/dL Low 8.5-10.1 [facility] Serum or plasma cholesterol measurement (mass/volume)Ordered By: Victor M Rojas on 06-20-2024 Cholesterol [Mass/Vol] 104 mg/dL <200 [facility] Comment on above: <200 mg/dL [...] plasma urea nitroge n measurement (mass/volume)Ordered By: Milyprice Granadosluiskaran on 06-20-2024 Urea nitrogen [Mass/Vol] 32 mg/dL High 7-18 [facility] Sodium levelOrdered By: Brandon wynn Darwinluiskaran on 06-20-2024 Sodium [Moles/Vol] 136 mmol/L 136-145 [facility] TSH QnOrdered By: Victor M Darwinkelly on 06-20-2024 Thyroid Stimulating Hormone (TSH) 2.290 uIU/mL 0.358-3.740 [facility] Total proteinOrdered By: Prosper phelan Darwinluiskaran on 06-20-2024 Protein [Mass/Vol] 6.7 g/dL 6.4-8.2 [facility] Triglycerides measurementOrd ered By: Milyprice Granadosluiskaran on 06-20-2024 Triglyceride [Mass/Vol] 145 mg/dL <199 [facility] Comment on above: The drugs N-Acetylcy steine and Metamizole may falsely depress this assay.Serum Triglycerides Reference Interval Normal <150 mg/dL Borderline high 150 - 199 mg/dL High 200 - 499 mg/dL Very High > or = 500 mg/dL Very low density lipoprotein (VLDL) cholesterol measurementOrdered By: Milyprice Granadosluiskaran on 06-20-2024 VLDL Cholesterol 29 mg/dL 5-40 [facility] White blood cell (WBC) count Ordered By: Victor M Darwinluiskaran on 06-20-2024 WBC (Bld) [#/Vol] 9.1 10*3/uL 4.4-11.0 [facility] Bacteria Ur Culton 4 Bacteria identified Cx [...] straight catheterization for???urine???collecti on. Normal [facility] Comment on above: Performed By: #### 6 30-4 #### [facility] CLIA [id number] [address] [place] [address] [place] CNOVon 06-18-2024 CNOV Office Visit (UROLWS ) ELIZABETH MODI ([id number]) 1940 M T Date Time Provider Department 06/18/24 1:00 PM NIKOLAI CONNOR UROLRAFIQ During your visit today, we recorded the following information about you: Nikolai Connor PA-C 06/18/2024 4:05 PM Signed [facility] NEW PATIENT CLINIC NOTE SERVICE DATE: June 18, 2024 NAME: Elizabeth Modi CHIEF COMPLAINT: Hematuria HISTORY OF PRESENT ILLNESS: Elizabeth Modi is a 83 year old male an new patient here for The patient reports Hematuria with a few episodes of hematuria Will get Urine sample today for culture and cytology Schedule Cystoscopy at [facility] And CT Urogram at [place] We discussed the need for full hematuria [...] (ADULTS MULTIVITAMIN ORAL) Take by mouth. vit C,V-Dj-oxipm-lutein-ze axan (PRESERVISION AREDS-2) 250-90-40-1 mg Take 1 [...] (more content not included)... Normal [facility] CREATININE BLDOrdered By: Amelia August on 06-18-2024 Creatinine [Mass/Vol] 1.37 mg/dL High 0.73 - 1.22 mg/dL [facility] GFR/1.73 sq M.predicted among non-blacks MDRD (S/P/Bld) [Vol rate/Area] 52 mL/min/{1.73_m2} Low - [facility] Comment on above: Estimated Glomerular Filtration [...] Interpretation and review of laboratory results Abnormal [facility] CREATININE BLDon 06-18-2024 Creatinine [Mass/Vol] 1.37 mg/dL High 0.73-1.22 [facility] Comment on above: Order Comment: Marty quinonez Type: BLOOD SPECIMEN Ordering Facility: [facility] Address: [address] [place] [address] Performed By: #### C RET1 #### [facility] [id number] [address] [place] [address] OF [facility] Creatinine and Glomerular filtration rate.predicted panel (S/P/Bld) 52 mL/min/1.73m??? Low >=[address] [facility] Comment on above: Order Comment: Marty quinonez Type: BLOOD SPECIMEN Ordering Facility: [facility] Address: [address] [place] [address] Result Comment: Alma Delia mated Glomerular Filtration [...] GFR. Performed By: #### C RET1 #### [id number] [address] [place] [address] [place] CYTOLOGY NON-GYNon CASE REPORT Normal [facility] Comment on above: Order Comment: Marty quinonez Type: URINE SPECIMEN Ordering Facility: [facility] Address: [address] [place] [address] Result Comment: [facility] Cytology Report Case: [id number] Authorizing Provider: Nikolai Connor PA-C Collected: 06/18/2024 01:58 PM Ordering Location: Urology Received: 06/18/2024 02:43 PM Pathologist: Eric Sutherland MD Specimen: Urine, Cystoscopic Performed By: #### C YTONON #### [facility] CLIA [id number] [address] [place] [address] OF [facility] CLINICAL HISTORY hematuria Normal [facility] Comment on above: Order Comment: Speci men Type: URINE SPECIMEN Ordering Facility: [facility] Address: [address] [place] [address] Performed By: #### C YTONON #### [facility] CLIA [id number] [address] [place] [address] OF [place] FINAL DIAGNOSIS Normal [facility] Comment on above: Order Comment: Speci men Type: URINE SPECIMEN Ordering Facility: [facility] Address: [address] [place] [address] Result Comment: A - Urine, Cystoscopic Negative for high-grade urothelial carcinoma. Acute and chronic inflammation. Blood. Performed By: #### C YTONON #### [facility] CLIA [id number] [address] [place] [address] [place] FINAL PERFORMING LAB Normal [facility] Comment on above: Order Comment: Speci men Type: URINE SPECIMEN Ordering Facility: [facility] Address: [address] [place] [address] Result Comment: Tech nical component, rail car repairman screening performed at [facility], [address] [place] [address] CLIA# [id number] Diagnostic interpretation performed at [facility], [address] [place], [place] [id number] CLIA# [id number] Client Architect: Kemal Campos M.D. Performed By: #### C YTONON #### [facility] CLIA [id number] [address] [place] [address] [place] GROSS DESCRIPTION Normal [facility] Comment on above: Order Comment: Speci men Type: URINE SPECIMEN Ordering Facility: [facility] Address: [address] [place] [address] Result Comment: A. Alvarez godineze, Cystoscopic 8 cc cloudy red fluid . ThinPrep prepared. Performed By: #### C YTONON #### [facility] CLIA [id number] [address] [place] [address] [place] Bilirubin Test strip Ql (U)O rdered By: Victor M Rojas on 06-17-2024 Bilirubin Ql (U) Negative Negative [facility] Glucose Ql (U)Ordered By: Stefan Rojas on 06-17-2024 Glucose (U) [Mass/Vol] 1000 mg/dL High Normal [facility] Ketones Test strip Ql (U)Ord ered By: Victor M Rojas on 06-17-2024 Ketones Ql (U) Negative Negative [facility] Nitrite Test strip Ql (U)Ord ered By: Victor M Rojas on 06-17-2024 Nitrite Ql (U) Negative Negative [facility] Protein Test strip Ql (U)Ord ered By: Victor M Rojas on 06-17-2024 Protein Ql (U) 500 mg/dl High Negative [facility] Urine blood detectionOrdered By: Victor M Rojas on 06-17-2024 Urine Occult Blood 250 /ul High Negative [facility] Urine clarityOrdered By: Prosper Rojas on 06-17-2024 Clarity (U) Cloudy Clear [facility] Urine color determinationOrd ered By: Victor M Rojas on 06-17-2024 Color (U) Red Yellow [facility] Urine cultureOrdered By: Prosper Rojas on 06-17-2024 Bacteria identified Cx Nom (U) Culture exhibits no growth. [facility] Urine leukocyte esterase det ection by dipstickOrdered By: Stefanvianeyleonaprice Bob on 06-17-2024 Leukocyte esterase Test strip Ql (U) 25 /ul High Negative [facility] Urine pHOrdered By: Tg Rojas on 06-17-2024 pH (U) 5.0 [pH] 5.0 - 8.0 [facility] Urine specific gravity measu rementOrdered By: Stefanvianeytianna Rojas on 06-17-2024 Specific gravity (U) [Rel density] 1.015 1.002-1.030 [facility] Urobilinogen Ql (U)Ordered B y: Victor M Rojas on 06-17-2024 Urine Urobilinogen Normal mg/dl Normal [facility] Gastroenterology Visit Repor ton 06-06-2024 Gastroenterology Visit Report [facility] Gastroenterology [address] [place] [address] OFFICE VISIT Date of Service: 06/06/24 MR#: [id number] Acct: [id number] Name: ELIZABETH MODI Rep #: [id number] : 1940 Provider: GILL Jefferson Age/Sex: 83/M Location: [facility] Status: Signed Intake Vital Signs 01/11/24 [...] Denies bloody stools, N/V/C and abdominal pain. 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 *[facility] hospitalization 12.14.22-12.17.22 for management of choledocholithiasis (ATB Tx), calculous cholecystitis with obstruction and renal mass. ? US RUQ 12.14.22 left hepatic cyst 2.2x2.5x1.9cm; gallbladder pericholecystic fluid with multiple gallstones and Uhnt???s sign + ? ERCP 12.15.22 entire MBD dilated with obstructing stone, biliary sphincterotomy/balloon extraction; lower MBD dilated; one temporary stent placed in CBD. ? Surgery 12.15.22 cholecystostomy tube placement. GI outpatient: ERCP 12.19.23 entire MBD dilated; choledocholithiasis removed via biliary sphincterotomy/balloon extraction; right MHD dila (more content not included)... Normal [facility] BCIDon 08-02-2023 Acinetobacter landon-baumanii complex Not detected Normal Not Detected [facility] ([place] Comment on above: Performed By: #### B MARANDA #### [place] [address] Bacteroides fragilis Not detected Normal Not Detected [facility] ([place] Comment on above: Performed By: #### B MARANDA #### [address] [address] BCID Comment See Comment Normal [facility] ([place] Comment on above: Result Comment: [...] follow. Performed By: #### B MARANDA #### [address] [address] Megan albicans Not detected Normal Not Detected [facility] ([place] Comment on above: Performed By: #### B MARANDA #### [address] [address] Megan auris Not detected Normal Not Detected [facility] [place] Comment on above: Performed By: #### B MARANDA #### [address] [address] Megan glabrata Not detected Normal Not Detected [facility] [place] Comment on above: Performed By: #### B MARANDA #### [address] [address] Megan krusei Not detected Normal Not Detected [facility] [place] Comment on above: Performed By: #### B MARANDA #### [address] [address] Megan parapsilosis Not detected Normal Not Detected [facility] ([place] Comment on above: Performed By: #### B MARANDA #### [facility] [address] [place] [address] Megan tropicalis Not detected Normal Not Detected [facility] ([place] Comment on above: Performed By: #### B MARANDA #### [facility] [address] [place], [place] [id number] Cryptococcus neoformans-gattii Not detected Normal Not Detected [facility] [place] Comment on above: Performed By: #### B MARANDA #### [place] [address] CTX-M (ESBL) Not Applicable Normal Not Detected [facility] ([place] Comment on above: Performed By: #### B MARANDA #### [place] [address] E. Coli Not detected Normal Not Detected [facility] [place] Comment on above: Performed By: #### B MARANDA #### [place] [address] Enterobacter cloacae Complex Not detected Normal Not Detected [facility] [place] Comment on above: Performed By: #### B MARANDA #### [place] [address] Enterobacterales Not detected Normal Not Detected [facility] [place] Comment on above: Performed By: #### B MARANDA #### [place] [address] Enterococcus faecalis Not detected Normal Not Detected [facility] ([place] Comment on above: Performed By: #### B MARANDA #### [place] [address] Enterococcus faecium Not detected Normal Not Detected [facility] [place] Comment on above: Performed By: #### B MARANDA #### [place] [address] Haemophilus influenzae Not detected Normal Not Detected [facility] ([place] Comment on above: Performed By: #### B MARANDA #### [place] [address] IMP (Carbapenemase) Not Applicable Normal Not Detected [facility] ([place] Comment on above: Performed By: #### B MARANDA #### [place] [address] Klebsiella aerogenes Not detected Normal Not Detected [facility] [place] Comment on above: Performed By: #### B MARANDA #### [place] [address] Klebsiella oxytoca Not detected Normal Not Detected [facility] ([place] Comment on above: Performed By: #### B MARANDA #### [place] [address] Klebsiella pneumoniae group Not detected Normal Not Detected [facility] ([place] Comment on above: Performed By: #### B MARANDA #### [place] [address] KPC (Carbapenemase) Not Applicable Normal Not Detected [facility] [place] Comment on above: Performed By: #### B MARANDA #### [place] [address] Listeria monocytogenes Not detected Normal Not Detected [facility] [place] Comment on above: Performed By: #### B MARANDA #### [place] [address] MCR-1 (Colistin Resistance) Not Applicable Normal Not Detected [facility] ([place] Comment on above: Performed By: #### B MARANDA #### [place] [address] Mec A/C Detected Abnormal Not Detected [facility] [place] Comment on above: Performed By: #### B MARANDA #### [place] [address] Mec A/C-MREJ (MRSA) Not Applicable Normal Not Detected [facility] [place] Comment on above: Performed By: #### B MARANDA #### [place] [address] NDM (Carbapenemase) Not Applicable Normal Not Detected [facility] ([place] Comment on above: Performed By: #### B MARANDA #### [place] [address] Neisseria meningitidis (Encapsalated) Not detected Normal Not Detected [facility] ([place] Comment on above: Performed By: #### B MARANDA #### [place] [address] OXA-48 like (Carbapenemase) Not Applicable Normal Not Detected [facility] [place] Comment on above: Performed By: #### B MARANDA #### [facility] [address] [place] [id number] Proteus Not detected Normal Not Detected [facility] ([place] Comment on above: Performed By: #### B MARANDA #### [facility] [address] [place] [address] Pseudomonas aeruginosa Not detected Normal Not Detected [facility] ([place] Comment on above: Performed By: #### B MARANDA #### [place] [id number] S. agalactiae Org specific cx Ql (Vag fld) Not detected Normal Not Detected [facility] ([place] Comment on above: Performed By: #### B MARANDA #### [place] [address] Salmonella species Not detected Normal Not Detected [facility] [place] Comment on above: Performed By: #### B MARANDA #### [place] [address] Serratia marcescens Not detected Normal Not Detected [facility] [place] Comment on above: Performed By: #### B MARANDA #### [place] [address] Staphylococcus Detected Abnormal Not Detected [facility] [place] Comment on above: Performed By: #### B MARANDA #### [place] [address] Staphylococcus aureus Not detected Normal Not Detected [facility] [place] Comment on above: Result Comment: If S taphylococcus aureus is "Detected", an Infectious Disease physician consult is required on identification. Performed By: #### B MARANDA #### [place] [id number] Staphylococcus epidermidis Detected Abnormal Not Detected [facility] [place] Comment on above: Performed By: #### B MARANDA #### [address] [address] Staphylococcus lugdunensis Not detected Normal Not Detected [facility] [place] Comment on above: Performed By: #### B MARANDA #### [facility] [address] [place] [address] Stenotrophomonas maltophilia Not detected Normal Not Detected [facility] [place] Comment on above: Performed By: #### B MARANDA #### [facility] [address] [place] [address] Streptococcus Not detected Normal Not Detected [facility] [place] Comment on above: Performed By: #### B MARANDA #### [facility] [address] [place] [address] Streptococcus pneumoniae Not detected Normal Not Detected [facility] [place] Comment on above: Performed By: #### B MARANDA #### [place] [address] Streptococcus pyogenes Not detected Normal Not Detected [facility] [place] Comment on above: Performed By: #### B MARANDA #### [place] [address] Van A/B Not Applicable Normal Not Detected [facility] [place] Comment on above: Performed By: #### B MARANDA #### [place] [address] VIM (Carbapenemase) Not Applicable Normal Not Detected [facility] [place] Comment on above: Performed By: #### B MARANDA #### [place] [address] Absolute lymphocyte countOrd ered By: Dwayne Palumbo on 02-08-2023 Lymphocytes Auto (Unsp spec) [#/Vol] 1.91 10*3/uL 0.83-4.51 [facility] Basophil percentageOrdered B y: Dwayne Palumbo on 02-08-2023 Basophils/100 WBC (Bld) 0.2 % 0-1 [facility] Bilirubin [Mass/Vol] 0.90 mg/dL 0.20-1.00 [facility] Comment on above: For patients on eltr ombopag therapy, use of Dimension [place] TBIL is not recommended. Chloride [Moles/Vol] 105 mmol/L 98-107 [facility] Eosinophils/100 WBC (Bld) 2.7 % 0-5 [facility] Glucose [Mass/Vol] 191 mg/dL 74-106 [facility] Comment on above: Fasting Glucose resu lt greater than or equal to 126 mg/dL suggests DIABETES MELLITUS per A.D.A. criteria. Neutrophils (Bld) [#/Vol] 7.0 10*3/uL 2.0-7.7 [facility] Neutrophils/100 WBC (Bld) 66.4 % 47-70 [facility] Potassium [Moles/Vol] 4.1 mmol/L 3.5-5.1 [facility] Protein [Mass/Vol] 8.0 g/dL 6.4-8.2 [facility] Sodium [Moles/Vol] 137 mmol/L 136-145 [facility] WBC (Bld) [#/Vol] 10.5 10*3/uL 4.4-11.0 [facility] Blood erythrocytes count (nu mber/volume)Ordered By: Dwayne Palumbo on 02-08-2023 RBC (Bld) [#/Vol] 4.64 10*6/uL 4.6-6.2 [facility] Blood hemoglobin measurement (mass/volume)Ordered By: Dwayne Palumbo on 02-08-2023 Hemoglobin (Bld) [Mass/Vol] 12.7 g/dL 13.0-16.5 [facility] Blood lymphocytes/100 leukoc ytesOrdered By: Dwayne Palumbo on 02-08-2023 Lymphocytes/100 WBC (Bld) 18.2 % 19-41 [facility] Blood monocytes/100 leukocyt esOrdered By: Dwayne Palumbo on 02-08-2023 Monocytes/100 WBC (Bld) 11.2 % 0-10 [facility] Blood platelet mean volumeOr dered By: Dwayne Palumbo on 02-08-2023 Platelet mean volume (Bld) [Entitic vol] 10.7 fL 6.2-12.0 [facility] Determination of erythrocyte mean corpuscular volume (MCV)Ordered By: Dwayne Palumbo on 02-08-2023 MCV (RBC) [Entitic vol] 86.6 fL 80-94 [facility] Hematocrit Auto (Bld) [Volum e fraction]Ordered By: Dwayne Palumbo on 02-08-2023 Hematocrit (Bld) [Volume fraction] 40.2 % 40-54 [facility] Laboratory - Chemistry and C hemistry - challengeOrdered By: Dwayne Palumbo on 02-08-2023 ALP [Catalytic activity/Vol] 122 U/L 45-117 [facility] ALT [Catalytic activity/Vol] 42 U/L 16-61 [facility] CO2 [Moles/Vol] 23.0 mmol/L 21.0-32.0 [facility] Globulin (S) [Mass/Vol] 4.6 g/dL 2.2-4.2 [facility] Urea nitrogen/Creatinine [Mass ratio] 25.7 mg/mg 10-20 [facility] - Hematology and Cell countsOrdered By: Dwayne Palumbo on 02-08-2023 Erythrocyte distribution width (RBC) [Entitic vol] 50.7 fL 35.1-43.9 [facility] Erythrocyte distribution width (RBC) [Ratio] 16.1 % 11.6-14.6 [facility] Immature granulocytes/100 WBC (Bld) 1.300 % 0.0-0.9 [facility] Comment on above: IG% - Immature Granu locytes (promyelocytes, myelocytes and metamyelocytes) > 1% indicates that a LEFT SHIFT is Present. MCH (RBC) [Entitic mass] 27.4 pg 27.0-32.0 [facility] Nucleated RBC/100 WBC (Bld) [Ratio] 0 % 0-5 [facility] MCHC Auto (RBC) [Mass/Vol]Or dered By: Dwayne Palumbo on 02-08-2023 MCHC (RBC) [Mass/Vol] 31.6 g/dL 32-36 [facility] No Panel InformationOrdered By: Dwayne Palumbo on 02-08-2023 Estimated GFR (MDRD) Amer 46 mL/min >60 [facility] Comment on above: GFR Calc Estimated GFR (MDRD) Non-Af Amer 38 mL/min >60 [facility] Comment on above: Non- GFR Calc Platelets bldOrdered By: Edilson Palumbo on 02-08-2023 Platelets (Bld) [#/Vol] 275 10*3/uL 150-450 [facility] Serum or plasma albumin akash urement (mass/volume)Ordered By: Dwayne Palumbo on 02-08-2023 Albumin [Mass/Vol] 3.4 g/dL 3.2-5.0 [facility] Serum or plasma albumin/glob ulin mass ratioOrdered By: Dwayne Palumbo on 02-08-2023 Albumin/Globulin [Mass ratio] 0.7 {ratio} 0.9-2.4 [facility] Serum or plasma calcium akash urement (mass/volume)Ordered By: Dwayne Palumbo on 02-08-2023 Calcium [Mass/Vol] 9.4 mg/dL 8.5-10.1 [facility] Serum or plasma creatinine m easurement (mass/volume)Ordered [...] 02-08-2023 Urea nitrogen [Mass/Vol] 47 mg/dL 7-18 [facility] Thin prep Papanicolaou smear with manual screeningOrdered By: Dwayne Palumbo on 02-08-2023 Thin prep Papanicolaou smear with manual screening 30 U/L 15-37 [facility] Thin prep Papanicolaou smear with manual screening 9 5-15 [facility] Absolute lymphocyte countOrd ered By: Jesse Haywood on 12-17-2022 Lymphocytes Auto (Unsp spec) [#/Vol] 0.86 10*3/uL 0.83-4.51 [facility] Basophil percentageOrdered B y: Jesse Haywood on 12-17-2022 Basophils/100 WBC (Bld) 0.1 % 0-1 [facility] Chloride [Moles/Vol] 113 mmol/L 98-107 [facility] Eosinophils/100 WBC (Bld) 0.2 % 0-5 [facility] Glucose [Mass/Vol] 178 mg/dL 74-106 [facility] Comment on above: Fasting Glucose resu lt greater than or equal to 126 mg/dL suggests DIABETES MELLITUS per A.D.A. criteria. Neutrophils (Bld) [#/Vol] 8.2 10*3/uL 2.0-7.7 [facility] Neutrophils/100 WBC (Bld) 80.2 % 47-70 [facility] Potassium [Moles/Vol] 3.8 mmol/L 3.5-5.1 [facility] Sodium [Moles/Vol] 141 mmol/L 136-145 [facility] WBC (Bld) [#/Vol] 10.2 10*3/uL 4.4-11.0 [facility] Blood erythrocytes count (nu mber/volume)Ordered By: Jesse Haywood on 12-17-2022 RBC (Bld) [#/Vol] 3.91 10*6/uL 4.6-6.2 [facility] Blood hemoglobin measurement (mass/volume)Ordered By: Jesse Haywood on 12-17-2022 Hemoglobin (Bld) [Mass/Vol] 11.1 g/dL 13.0-16.5 [facility] Blood lymphocytes/100 leukoc ytesOrdered By: Jesse Haywood on 12-17-2022 Lymphocytes/100 WBC (Bld) 8.4 % 19-41 [facility] Blood monocytes/100 leukocyt esOrdered By: Jesse Haywood on 12-17-2022 Monocytes/100 WBC (Bld) 9.2 % 0-10 [facility] Blood platelet mean volumeOr dered By: Jesse Haywood on 12-17-2022 Platelet mean volume (Bld) [Entitic vol] 11.4 fL 6.2-12.0 [facility] Determination of erythrocyte mean corpuscular volume (MCV)Ordered By: Jesse Haywood on 12-17-2022 MCV (RBC) [Entitic vol] 87.7 fL 80-94 [facility] Glucose Glucometer (BldC) [M ass/Vol]Ordered By: Jesse Haywood on 12-17-2022 Glucose [Mass/Vol] 216 mg/dL 74-106 [facility] Comment on above: MANAGEMENT OF PATIEN T CARE PER NURSING PROTOCOL Hematocrit Auto (Bld) [Volum e fraction]Ordered By: Jesse Haywood on 12-17-2022 Hematocrit (Bld) [Volume fraction] 34.3 % 40-54 [facility] Laboratory - Chemistry and C hemistry - challengeOrdered By: Jesse Haywood on 12-17-2022 CO2 [Moles/Vol] 21.0 mmol/L 21.0-32.0 [facility] Urea nitrogen/Creatinine [Mass ratio] 30.1 mg/mg 10-20 [facility] - Hematology and Cell countsOrdered By: Jesse Haywood on 12-17-2022 Erythrocyte distribution width (RBC) [Entitic vol] 47.4 fL 35.1-43.9 [facility] Erythrocyte distribution width (RBC) [Ratio] 14.7 % 11.6-14.6 [facility] Immature granulocytes/100 WBC (Bld) 1.900 % 0.0-0.9 [facility] Comment on above: IG% - Immature Granu locytes (promyelocytes, myelocytes and metamyelocytes) > 1% indicates that a LEFT SHIFT is Present. MCH (RBC) [Entitic mass] 28.4 pg 27.0-32.0 [facility] Nucleated RBC/100 WBC (Bld) [Ratio] 0 % 0-5 [facility] MCHC Auto (RBC) [Mass/Vol]Or dered By: Jesse Haywood on 12-17-2022 MCHC (RBC) [Mass/Vol] 32.4 g/dL 32-36 [facility] No Panel InformationOrdered By: Jesse Haywood on 12-17-2022 Estimated Creatinine Clearance Calc 34.17 ml/min [facility] Estimated GFR (MDRD) Amer 56 mL/min >60 [facility] Comment on above: GFR Calc Estimated GFR (MDRD) Non-Af Amer 47 mL/min >60 [facility] Comment on above: Non- GFR Calc Platelets bldOrdered By: Stephanie Haywood on 12-17-2022 Platelets (Bld) [#/Vol] 248 10*3/uL 150-450 [facility] Serum or plasma calcium akash urement (mass/volume)Ordered By: Jesse Haywood on 12-17-2022 Calcium [Mass/Vol] 8.0 mg/dL 8.5-10.1 [facility] Serum or plasma creatinine m easurement (mass/volume)Ordered [...] 12-17-2022 Urea nitrogen [Mass/Vol] 46 mg/dL 7-18 [facility] Thin prep Papanicolaou smear with manual screeningOrdered By: Jesse Haywood on 12-17-2022 Thin prep Papanicolaou smear with manual screening 7 5-15 [facility] Bacteria identified Anaer cx Nom (Unsp spec)Ordered By: Dwayne Palumbo on 12-16-2022 Anaerobic Culture Bacteroides vulgatus [facility] Bacteria identified Cx Nom ( Wound)Ordered By: Dwayne Palumbo on 12-16-2022 Wound Culture Escherichia coli [facility] Basophil percentageOrdered B y: Jesse Haywood on 12-16-2022 Bilirubin [Mass/Vol] 2.00 mg/dL 0.20-1.00 [facility] Comment on above: For patients on eltr ombopag therapy, use of Dimension [place] TBIL is not recommended. Protein [Mass/Vol] 6.4 g/dL 6.4-8.2 [facility] Gram stain for investigation of transfusion reactionOrdered By: Dwayne Palumbo on 12-16-2022 Microscopic observation Gram stain Nom (Unsp spec) [facility] INR in Blood by Coagulation assayOrdered By: Emmanuel Kohler on 12-16-2022 INR Coag (Bld) [Relative time] 1.3 {INR} [facility] Laboratory - Chemistry and C hemistry - challengeOrdered By: Jesse Haywood on 12-16-2022 ALP [Catalytic activity/Vol] 278 U/L 45-117 [facility] ALT [Catalytic activity/Vol] 132 U/L 16-61 [facility] Globulin (S) [Mass/Vol] 4.2 g/dL 2.2-4.2 [facility] Laboratory - CoagulationOrde red By: Emmanuel Kohler on 12-16-2022 PT Coag (PPP) [Time] 16.5 s 11.7-14.9 [facility] Serum or plasma albumin akash urement (mass/volume)Ordered By: Jesse Haywood on 12-16-2022 Albumin [Mass/Vol] 2.2 g/dL 3.2-5.0 [facility] Serum or plasma albumin/glob ulin mass ratioOrdered By: Jesse Haywood on 12-16-2022 Albumin/Globulin [Mass ratio] 0.5 {ratio} 0.9-2.4 [facility] Thin prep Papanicolaou smear with manual screeningOrdered By: Jesse Haywood on 12-16-2022 Thin prep Papanicolaou smear with manual screening 74 U/L 15-37 [facility] Blood manual differential co mment interpretation (narrative result)Ordered By: Jesse Haywood on 12-15-2022 Manual differential comment Ghassan (Bld) [Interp] COMMENT [facility] Comment on above: MONOCYTOSIS. Laboratory - CoagulationOrde red By: Jesse Wang on 12-15-2022 aPTT Coag (Bld) [Time] 38.5 s 24.1-36.2 [facility] No Panel InformationOrdered By: Jesse Wang on 12-15-2022 Thyroid Stimulating Hormone (TSH) 1.50 uIU/mL 0.358-3.74 [facility] Review by pathologistOrdered By: Jesse Haywood on 12-15-2022 Pathologist review Ghassan (Unsp spec) [Interp] Reviewed [facility] Comment on above: Previous reported re sult: Stacy noonan Edited by: [email or web address] on 12/15/22:1321Neutrophilic leukocytosis.Clinical correlation necessary.Raymond Knox M.D. 12/15/22 AMENDED REPORT 12/15/22 1321 PATH REV previously reported as: Stacy noonan Whole blood hemoglobin A1c/t otal hemoglobin ratio (mass fraction)Ordered By: Jesse Wang on 12-15-2022 HbA1c (Bld) [Mass fraction] 6.9 % 3.8-5.6 [facility] Comment on above: Normal < 5.7 % Predi abetic 5.7 - 6.4 % Diabetic >or= 6.5 % Please note range changes. BLOOD TB SCREENon 09-02-2022 M. tuberculosis tuberculin stim IFN-g Ql (Bld) Negative [facility] Mitogen minus Nil 5.42 IU/mL >=0.50 IU/mL [facility] TB Gamma Interpretation Infection with M . tuberculosis complex is unlikely. If latent tuberculosis infection is highly suspected, a negative result does not rule out the infection. Specimens from immunocompromised patients and those <5 years of age may show false negative results. In case of a contact investigation, please repeat 8-12 weeks after a known exposure. [facility] TB Nil 0.02 IU/mL <=8.00 IU/mL [facility] TB1 Ag minus Nil 0.00 IU/mL <0.35 IU/mL [facility] TB2 Ag minus Nil <0.35 IU/mL [facility] CBC W Auto Differential pane l (Bld)on 09-02-2022 Anisocytosis Ql (Bld) Present [facility] Basophils (Bld) [#/Vol] 0.00 10*3/uL <0.11 k/uL [facility] Basophils/100 WBC (Bld) 0.0 % C [facility] Differential cell count method Nom (Bld) Manual [facility] Eosinophils (Bld) [#/Vol] 0.14 10*3/uL <0.46 k/ uL [facility] Eosinophils/100 WBC (Bld) 1.0 % [facility] Erythrocyte distribution width (RBC) [Ratio] 16.4 % High 11.5 - 15.0 % [facility] Hematocrit (Bld) [Volume fraction] 45.3 % 39.0 - 51.0 % [facility] Hemoglobin (Bld) [Mass/Vol] 14.4 g/dL 13.0 - 17.0 g/dL [facility] Lymphocytes (Bld) [#/Vol] 1.43 10*3/uL 1. 00 - 4.00 k/uL [facility] Lymphocytes/100 WBC (Bld) 10.0 % [facility] MCH (RBC) [Entitic mass] 29.9 pg 26. 0 - 34.0 pg [facility] MCHC (RBC) [Mass/Vol] 31.8 g/dL 30.5 - 36.0 g/dL [facility] MCV (RBC) [Entitic vol] 94.0 fL 80.0 - 100.0 fL [facility] [place] % 1.0 % [facility] Monocytes (Bld) [#/Vol] 1.00 10*3/uL High <0.87 k/uL [facility] Monocytes/100 WBC (Bld) 7.0 % [facility] Neutrophils (Bld) [#/Vol] 11.57 10*3/uL High 1 .45 - 7.50 k/uL [facility] Neutrophils/100 WBC (Bld) 81.0 % [facility] Nucleated RBC (Bld) [#/Vol] <0.01 k/uL [facility] Nucleated RBC/100 WBC (Bld) [Ratio] 0.0 /100 WBC [facility] Ovalocytes LM Ql (Bld) Few Cl [facility] Platelet mean volume (Bld) [Entitic vol] 11.1 fL 9.0 - 12.7 fL [facility] Platelets (Bld) [#/Vol] 282 10*3/uL 150 - 400 k/uL [facility] Platelets Estimate (Bld) [#/Vol] Adequate [facility] Polychromasia LM Ql (Bld) Slight [facility] RBC (Bld) [#/Vol] 4.82 10*6/uL 4.20 - 6.0 0 m/uL [facility] Red Cell Morph Reviewed: see result s of individual morphologies [facility] WBC (Bld) [#/Vol] 14.29 10*3/uL High 3.70 - 11.00 k/uL [facility] WBC Left Shift Ql (Bld) Present [facility] C-REACTIVE PROTEIN (CRP)on 0 09-01-2022 CRP [Mass/Vol] <0.9 mg/dL [facility] Comprehensive metabolic 2000 panelon 09-01-2022 Albumin [Mass/Vol] 4.0 g/dL 3.9 - 4.9 g/dL [facility] ALP [Catalytic activity/Vol] 88 U/L 38 - 113 U/L [facility] ALT [Catalytic activity/Vol] 19 U/L 10 - 54 U/L [facility] Anion gap [Moles/Vol] 11 mmol/L 9 - 18 mmol/L [facility] AST [Catalytic activity/Vol] 19 U/L 14 - 40 U/L [facility] Bilirubin [Mass/Vol] 0.5 mg/dL 0.2 - 1 .3 mg/dL [facility] Calcium [Mass/Vol] 9.4 mg/dL 8.5 - 10. 2 mg/dL [facility] Chloride [Moles/Vol] 106 mmol/L High 97 - 10 5 mmol/L [facility] CO2 [Moles/Vol] 21 mmol/L Low 22 - 30 mmol/L [facility] Creatinine [Mass/Vol] 2.01 mg/dL High 0.73 - 1.22 mg/dL [facility] Estimated Glomerular Filtration Rate 33 mL/min/1.73m Low >=60 mL/min/1.73 m [facility] Glucose [Mass/Vol] 146 mg/dL High 74 - 99 mg/dL [facility] Potassium [Moles/Vol] 4.5 mmol/L 3.7 - 5.1 mmol/L [facility] Protein [Mass/Vol] 7.2 g/dL 6.3 - 8.0 g/dL [facility] Sodium [Moles/Vol] 138 mmol/L 136 - 144 mmol/L [facility] Urea nitrogen [Mass/Vol] 50 mg/dL High 9 - 24 mg/dL [facility] ESR Westergren method (Bld) [Velocity]on 09-01-2022 ESR (Bld) [Velocity] 31 mm/h High 0 - 15 mm/hr [facility] VITAMIN D 25 HYDROXYon 09-01 25-hydroxyvitamin D3 [Mass/Vol] 27.8 ng/mL Low 31.0 - 80.0 ng/mL [facility] LABORATORYOrdered By: Michelle Gardner on 01-13-2022 Blood Glucose Testing Reason Routine (01/13/22 11:36 AM) [facility] Work Phone: Glucose [Mass/Vol] 101 mg/dL Invalid Interpretation Code 82 - 115 mg/dL [facility] Work Phone: Blood Glucose Testing Reason Routine (01/13/22 7:06 AM) [facility] Work Phone: Glucose [Mass/Vol] 87 mg/dL Invalid Interpretation Code 82 - 115 mg/dL [facility] Work Phone: LABORATORYOrdered By: SYSTEM SYSTEM [...] 110 mEq/L AH ADM SS CO2 [Moles/Vol] 25 mmol/L Invalid Interpretation Code 22 - 32 mEq/L AH ADM SS Creatinine [Mass/Vol] 1.72 mg/dL Invalid Interpretation Code 0.60 - 1.40 mg/dL AH ADM SS Electrolyte Balance 9.0 mEq/L Invalid Interpretation Code 4.0 - 15.0 mEq/L AH ADM SS Eosinophils (Bld) [#/Vol] 0.1 103/mcL [...] [Vol rate/Area] 38 ml/min/1.73sqm Invalid Interpretation Code AH ADM SS Glucose [Mass/Vol] 87 mg/dL Invalid [...] Testing Reason Routine (01/12/22 8:59 PM) [facility] Work Phone: Glucose [Mass/Vol] 153 mg/dL Invalid Interpretation Code 82 - 115 mg/dL [facility] Work Phone: LABORATORYOrdered By: Adali Spencer [...] Comment on above: Result Comment: [place] [id number] FLU B PCR Negative 8 (01/12/22 10:33 AM) Invalid Interpretation Code Negative AH Auto Viro/Sero SS Comment on above: Result Comment: [place] s [id number] Hospitalized Yes (01/12/22 10:33 AM) Invalid Interpretation [...] Comment on above: Result Comment: [place] [id number] SARS-CoV-2 (COVID-19) RNA ARIELLE+probe Ql (Unsp spec) Negative 6 (01/12/22 10:33 AM) Invalid Interpretation Code Negative AH Auto Viro/Sero SS Comment on above: Result Comment: [place] [address] Symptomatic as Defined by CDC No (01/12/22 [...] 10^3/mcL AH Workflow SS Neutrophils/100 WBC (Bld) 84.5 % Invali d Interpretation Code 50.0 - 75.0 % AH Workflow SS LABORATORYOrdered By: Brigida Knott on 01-06-2022 Blood Glucose Interventions Administered food/juice (01/06/22 8:38 AM) [facility] Work Phone: LABORATORYOrdered By: SYSTEM SYSTEM [...] 34 U/L AH ADM SS Bilirubin [Mass/Vol] 0.70 mg/dL Invalid [...] - 7.460 Auto Chem SS Barometric Pressure 702 mm[Hg] [...] (Bld) [Moles/Vol] -3.7000 mmol/L Invalid Interpretation Code AH Rapid Comm SS Calcium.ionized (Bld) [Mass/Vol] 1.12 [...] Interpretation Code BB Auto SS LABORATORYOrdered By: Pascael Murphy on 01-04-2022 RBC Product Ready RBC Ready for Pickup (01/04/22 4:44 PM) Invalid Interpretation Code BB Manual SS LABORATORYOrdered By: Hunan Meijing [employer] on 01-04-2022 Albumin BCP dye [Mass/Vol] 3.3 G/dL Invalid Interpretation Code 3.2 - 4.8 G/dL ADM SS Albumin/Globulin [Mass ratio] 1.0 {ratio} Invalid Interpretation Code 0.9 - 1.6 ratio ADM SS ALP [Catalytic activity/Vol] 82 U/L [...] Code AH Auto Coag SS LABORATORYOrdered By: Hunan [employer] SYSTEM on 12-30-2021 Troponin I.cardiac DL <= [...] Glucose Interventions Retest (12/30/21 8:53 AM) [facility] Work Phone: LABORATORYOrdered By: Rohan Rivero [...] increase blood sugar (12/30/21 8:32 AM) [facility] Work Phone: Hemoglobin A1con 08-04-2021 Glucose [Mass/Vol] 258 mg/dL Normal [facility] Reference Lab Comment on above: Performed By: #### H BA1C #### [facility] Routine Lab [address], [place] [id number] HbA1c (Bld) [Mass fraction] 10.6 % High 4.3-5.6 [facility] Reference Lab Comment on above: Performed By: #### H BA1C #### [facility] Routine Lab [address], [place] [address] Glucose,Bedsideon 02-09-2021 Glucose [Mass/Vol] 185 mg/dL High 70-100 [facility] Comment on above: Result Comment: Test performed by glucose meter. Results may be 10%-15% lower than serum/plasma values. (CLIA ID [id number]) Performed By: #### B GLU #### [facility] [address] [place] [address] Glucose [Mass/Vol] 284 mg/dL High 70-100 [facility] Comment on above: Result Comment: Test performed by glucose meter. Results may be 10%-15% lower than serum/plasma values. (CLIA ID [id number]) Performed By: #### B GLU #### [address] [address] OPERATIVE REPORTOrdered By: 3m Scanning on 02-09-2021 [facility] Work Phone: Op Noteon 02-09-2021 Op Note [facility] Dictation: Topical Anesthesia Note Patient Name: Elizabeth Modi : 1940 Date of Procedure: 02/09/2021 Surgeon: Ammy Vicente M.D. Lithopone Charger: Rachel Elder MD Anesthesia: Monitored Anesthesia Care [...] then created using a cystotome and utrata forceps.[place]-dissecti on and hydro-delineation were then performed. Phacoemulsification [...] or any other concerns. Operative Note Normal [facility] POCT GlucoseOrdered By: Gayatri Vicente on 02-09-2021 Glucose [Mass/Vol] 185 mg/dL High 70 - 100 mg/dL [facility] Work Phone: Comment on above: Test performed by [employer] ucose meter. Results may be 10%-15% lower than serum/plasma values. (CLIA ID [id number]) Interpretation and review of laboratory results Abnormal [facility] Work Phone: Test Performed by [employer], [address] [place] [address] [facility] Work Phone: [employer] Work Phone: Glucose [Mass/Vol] 284 mg/dL High 70 - 100 mg/dL [facility] Work Phone: Comment on above: Test performed by [employer] ucose meter. Results may be 10%-15% lower than serum/plasma values. (CLIA ID [id number]) Interpretation and review of laboratory results Abnormal [facility] Work Phone: Test Performed by [employer], [address] [place] [address] [facility] Work Phone: [facility] Work Phone: Hemoglobin A1con 12-03-2020 Glucose [Mass/Vol] 194 mg/dL Normal [facility] Reference Lab Comment on above: Performed By: #### H BA1C #### [facility] Routine Lab [address] [place], [place] [address] HbA1c (Bld) [Mass fraction] 8.4 % High 4.3-5.6 [facility] Reference Lab Comment on above: Performed By: #### H BA1C #### [facility] Routine Lab [address] [place], [place] [address] ECHOCARDIOGRAM LIMITED/FOLLO WUPon 11-13-2020 ECHOCARDIOGRAM LIMITED/FOLLOWUP ? [...] 06/08/2020, LV function has improved. 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 Finn in May Interpretation Summary ? Limited echocardiogram for LV [...] Role Read Date Dwayne Carrasco MD Echo [place] 11/13/2020 Left Heart Measurements LV - Systole [...] patient's inability to turn. Imaging system used: [employer]. Exam Details Performed Procedure (more content not included)... Normal [facility] Hemoglobin A1con 09-10-2020 Glucose [Mass/Vol] 177 mg/dL Normal [facility] Reference Lab Comment on above: Performed By: #### H BA1C #### [facility] Routine Lab [address] [place], [place] [address] HbA1c (Bld) [Mass fraction] 7.8 % High 4.3-5.6 [facility] Reference Lab Comment on above: Performed By: #### H BA1C #### [facility] Routine Lab [address] [place], [place] [address] CNPYessenia 05-20-2020 [facility] ELIZABETH MODI ([id number]) 1940 M Date Time Provider Department 05/20/20 [...] (HCC) [E44.0] 08/22/2019 PVD (peripheral vascular disease) ([facility]) [I73.9] 12/07/2019 Below knee amputation ([facility]) [S88.119A] 12/07/2019 Nonhealing surgical wound [T81.89XA] 12/09/2019 Encounter Status:Closed by ZOLTAN EWING on 05/20/20 [facility] GURWINDERN Telephone (AGVASACC) ELIZABETH MODI ([id number]) 1940 M Date Time Provider Department 05/20/20 RYAN ALLEN During your visit today, we recorded the following information about you: Bren Santos 05/20/2020 2:52 PM Signed I have received a call from the daughter Angelic and she stated her father is in the hospital in [place] where he has had great toe removed [...] TABLET Take 25 mcg by mouth once jytoi* LISINOPRIL 10 MG TABLET Take 10 mg [...] Encounter Status:Closed by BREN SANTOS on 05/21/20 [facility] PROGRESSon 05-18-2020 PROGRESS HNO ID: [id number] Author: Ryan Allen Service: ? Author Type: [...] Anxiety and depression - DM (diabetes mellitus) ([facility]) - Dyslipidemia - HTN (hypertension) - [...] MG DAILY@0800 October 12, 2019 7:37am 10-12-2019 [facility] ([id number]) - gabapentin (NEURONTIN) 600 mg tablet Take [...] encounter diagnosis) (I73.9) PVD (peripheral vascular disease) ([facility]) (E11.69) Type 2 diabetes mellitus with other specified complication, without long-term current use of insulin ([facility]) (S91.302A) Open wound of left foot [...] this point. Given the state of the [facility] emergency room at this junction it may be better to have him seen locally at [facility] and see if some antibiotic therapy at least overnight might be worth a try. Possible transfer from there would depend on his stability and the bed availability here at [facility] There are no Patient Instructions on file for this visit. yRan Allen MD [facility] Bas Metab 2000 Pnl SerPlon 1 07-15-2019 Anion gap [Moles/Vol] 13 mmol/L Normal 9-18 [facility] Comment on above: Order Comment: Speci men Type: BLOOD SPECIMEN Performed By: #### 2 4321-2 #### [facility] CLIA [id number] [address] [place] [address] Calcium [Mass/Vol] 9.8 mg/dL Normal 8.5-10.2 [facility] Comment on above: Order Comment: Speci men Type: BLOOD SPECIMEN Performed By: #### 2 4321-2 #### [facility] CLIA [id number] [address] [place] [address] Chloride [Moles/Vol] 102 mmol/L Normal 97-105 [facility] Comment on above: Order Comment: Speci men Type: BLOOD SPECIMEN Performed By: #### 2 4321-2 #### [facility] CLIA [id number] [address] [place] [address] CO2 [Moles/Vol] 24 mmol/L Normal 22-30 [facility] Comment on above: Order Comment: Speci men Type: BLOOD SPECIMEN Performed By: #### 2 4321-2 #### [facility] CLIA [id number] [address] [place] [address] Creatinine [Mass/Vol] 0.95 mg/dL Normal 0.73-1.22 [facility] Comment on above: Order Comment: Speci men Type: BLOOD SPECIMEN Performed By: #### 2 4321-2 #### [facility] CLIA [id number] [address] [place] [address] GFR/1.73 sq M.predicted MDRD (S/P/Bld) [Vol rate/Area] mL/min/{1.73_m2} [facility] Comment [...] GFR. Performed By: #### 2 4321-2 #### [facility] CLIA [id number] [address] [place] [address] Glucose [Mass/Vol] 214 mg/dL High 74-99 [facility] Comment on above: Order Comment: Speci men Type: BLOOD SPECIMEN Result Comment: The [place] Diabetes Association (ADA) provides guidance for cutoff [...] Standards of Medical Care in Diabetes 2016, [place] Diabetes Association. Diabetes Care. 2016.39(Suppl 1). Performed By: #### 2 4321-2 #### [facility] CLIA [id number] [address] [place] [address] Potassium [Moles/Vol] 4.9 mmol/L Normal 3.7-5.1 [facility] Comment on above: Order Comment: Speci men Type: BLOOD SPECIMEN Performed By: #### 2 4321-2 #### [facility] CLIA [id number] [address] [place] [address] Sodium [Moles/Vol] 139 mmol/L Normal 136-144 [facility] Comment on above: Order Comment: Speci men Type: BLOOD SPECIMEN Performed By: #### 2 4321-2 #### [facility] CLIA [id number] [address] [place] [address] Urea nitrogen [Mass/Vol] 31 mg/dL High 9-24 [facility] Comment on above: Order Comment: Speci men Type: BLOOD SPECIMEN Performed By: #### 2 4321-2 #### [facility] CLIA [id number] [address] [place] [address] CBC (hemogram) Bld Autoon Erythrocyte distribution width (RBC) [Ratio] 12.8 % Normal 11.5-15.0 [facility] Comment on above: Order Comment: Speci men Type: BLOOD SPECIMEN Performed By: #### 5 8410-2 #### [facility] CLIA [id number] [address] [place] [address] Hematocrit (Bld) [Volume fraction] 43.5 % Normal 39.0-51.0 [facility] Comment on above: Order Comment: Speci men Type: BLOOD SPECIMEN Performed By: #### 5 8410-2 #### [facility] CLIA [id number] [address] [place] [address] Hemoglobin (Bld) [Mass/Vol] 14.1 g/dL Normal 13.0-17.0 [facility] Comment on above: Order Comment: Speci men Type: BLOOD SPECIMEN Performed By: #### 5 8410-2 #### [facility] CLIA [id number] [address] [place] [address] MCH (RBC) [Entitic mass] 29.5 pg Normal 26.0-34.0 [facility] Comment on above: Order Comment: Speci men Type: BLOOD SPECIMEN Performed By: #### 5 8410-2 #### [facility] CLIA [id number] [address] [place] [address] MCHC (RBC) [Mass/Vol] 32.4 g/dL Normal 30.5-36.0 [facility] Comment on above: Order Comment: Speci men Type: BLOOD SPECIMEN Performed By: #### 5 8410-2 #### [facility] CLIA [id number] [address] [place] [address] MCV (RBC) [Entitic vol] 91.0 fL Normal 80.0-100.0 [facility] Comment on above: Order Comment: Speci men Type: BLOOD SPECIMEN Performed By: #### 5 8410-2 #### [facility] CLIA [id number] [address] [place] [address] Nucleated RBC (Bld) [#/Vol] 10*3/uL Normal <0.01 [facility] Comment on above: Order Comment: Speci men Type: BLOOD SPECIMEN Performed By: #### 5 8410-2 #### [facility] CLIA [id number] [address] [place] [address] Platelet mean volume (Bld) [Entitic vol] 10.4 fL Normal 9.0-12.7 [facility] Comment on above: Order Comment: Speci men Type: BLOOD SPECIMEN Performed By: #### 5 8410-2 #### [facility] CLIA [id number] [address] [place] [address] Platelets (Bld) [#/Vol] 367 10*3/uL Normal 150-400 [facility] Comment on above: Order Comment: Speci men Type: BLOOD SPECIMEN Performed By: #### 5 8410-2 #### [facility] CLIA [id number] [address] [place] [address] RBC (Bld) [#/Vol] 4.78 10*6/uL Normal 4.20-6.00 [facility] Comment on above: Order Comment: Speci men Type: BLOOD SPECIMEN Performed By: #### 5 8410-2 #### [facility] CLIA [id number] [address] [place] [address] WBC (Bld) [#/Vol] 11.87 10*3/uL High 3.70-11.00 [facility] Comment on above: Order Comment: Speci men Type: BLOOD SPECIMEN Performed By: #### 5 8410-2 #### [facility] CLIA [id number] [address] [place] [address] CNPNon 05-15-2020 JONAS Telephone ([facility]) LYELIZABETH ([id number]) 1940 M Date Time Provider Department 05/15/20 [...] Allergies) Date Reviewed: 05/15/2020 Reviewed by: Sunshine ([facility]) Kimberly - Fully Assessed Reason for Visit: [...] by MARIA ESTHER GUSMAN CNP on 05/19/20 [facility] HGB A1Con 05-15-2020 Average glucose Estimated from glycated hemoglobin mass conc (Bld) 189 mg/dL [facility] Comment on above: Order Comment: Speci men Type: BLOOD SPECIMEN Result Comment: eAG: (Estimated average glucose) is a calculated value from HgbA1c and is resources representative of the average blood glucose level in the last 2-3 month period. Performed By: #### H BA1C ####[facility] [id number] [place] [address] HbA1c (Bld) [Mass fraction] 8.2 % High 4.3-5.6 [facility] Comment on above: Order Comment: Speci men Type: BLOOD SPECIMEN Result Comment: Amer [place] Diabetes Association guidelines indicate that patients with HgbA1c in the range 5.7-6.4% are at increased risk for development of diabetes, and intervention by lifestyle modification may be beneficial. HgbA1c greater or equal to 6.5% is considered diagnostic of diabetes. Performed By: #### H BA1C ####[facility] [id number] [place] [address] HISTORY PHYSICALon 0 HISTORY PHYSICAL HNO ID: [id number] Author: Sunshine (Gurwinder) Kimberly Service: ? Author Type: Nurse Practitioner Type: [...] Anxiety and depression - DM (diabetes mellitus) ([facility]) - Dyslipidemia - HTN (hypertension) - Hypothyroidism - PVD (peripheral vascular disease) ([facility]) PAST SURGICAL HISTORY Procedure Laterality Date [...] MG DAILY@0800 October 12, 2019 7:37am 10-12-2019 [facility] ([id number]) Taking Yes gabapentin (NEURONTIN) 600 mg tablet [...] CP and palpitations. No h/o of CHF, MT, Cardiac Sx, cardiac stents, PPM/AICD. +HTN, HLD, [...] 12/11/2019 was 126. will get A1C at [facility] Former Smoker- quit in 1989, 30 [...] 2020 TIME: 3:32 PM PAGER/CONTACT #: Mela [facility] PT Pnl PPPon 11-27-2020 INR Coag (PPP) [Relative time] 1.0 {INR} Normal 0.9-1.3 [facility] Comment on above: Order Comment: Speci men Type: BLOOD SPECIMEN Result Comment: Radha min K Antagonist (VKA) Therapeutic Range: INR 2 to 3 (Target INR of 2.5) Note: For patients treated with VKA drugs, such as warfarin, the [place] College [employer]icians 2012 Guideline recommends [...] Chest 2012, 141:7S-47S Dada RA, et al. [facility] 2017, 70: 252-289 Performed By: #### 3 4528-0 #### [facility] CLIA [id number] [address] [place] [address] PT Coag (PPP) [Time] 10.6 s Normal 9.7-13.0 [facility] Comment on above: Order Comment: Speci men Type: BLOOD SPECIMEN Performed By: #### 3 4528-0 #### [facility] CLIA [id number] [address] [place] [address] PT EDon 05-13-2020 PT ED HNO ID: [id number] Author: Jeni (Yuri) YURI Shoemaker Service: ? [...] RN In Department: AK SURGERY OR Normal [facility] PROGRESSon 04-29-2020 PROGRESS HNO ID: [id number] Author: Ryan Allen Service: ? Author Type: Physician Type: Progress Notes Filed: 04/29/2020 7:08 PM Note Text: This note was partially generated using [employer] voice recognition system. I spent 15+ minutes in the visit, with more than 50% of the total gegn-am-uoea time of the visit in counseling / [...] patient is currently taking aspirin: Yes Normal [facility] CNOVon 04-28-2020 CNOV Office Visit (AGVASACC) ELIZABETH MODI ([id number]) 1940 M Date Time Provider Department 04/28/20 11:00 AM RYAN ALLEN JERZY During your visit today, we recorded the following information about you: Temperature Blood pressure Weight Height 80 degrees 134/60 88 kg 1.778 m Ryan Allen MD 04/29/2020 7:08 PM Signed This note was partially generated using [employer] voice recognition system. I spent 15+ minutes in the visit, with more than 50% of the total scbe-qg-hoxd time of the visit in counseling / [...] runoffs Primary Visit Diagnosis:PVD (peripheral vascular disease) ([facility]) [I73.9] Other Visit Diagnoses:Nonhealing nonsurgical wound [...] by RYAN ALLEN MD on 04/29/20 [facility] JONAS Tele[facility] (AGVASMENDY) ELIZABETH MODI ([id number]) 1940 M Date Time Provider Department 04/28/20 [...] (HCC) [I73.9] Order(s):SURGICAL REQUEST - ELECTIVE (01/2020) [[id number]] Order #: [id number]: 1 HANDP FOR SURGERY [C4400HCL] Order #: [id number] PRE-PROCEDURE AND PRE-OPERATIVE COVID [SQPOCOVD] Order #: [id number] FUTURE CBC [SQCBC] Order #: [id number] FUTURE BASIC METABOLIC PNL [SQBMP] Order #: [id number] FUTURE PROTHROMBIN TIME/PT [SQPT] Order #: [id number] FUTURE ECG COMPLETE [ECG01] Order #: [id number] FUTURE Prescriptions as of 04/28/2020 Sig: ASPIRIN [...] MARIA ESTHER GUSMAN CNP on 04/28/20 Normal [facility] CNOVon 04-21-2020 CNOV Office Visit (AKURFL ) ELIZABETH MODI ([id number]) 1940 M Date Time Provider Department 04/21/20 1:30 PM YADI WHITE During your visit today, we recorded the following information about you: Weight Height 88 kg 1.778 m Yadi White DO, MBA 04/21/2020 3:13 PM Signed ?? [facility] UROLOGY LOCATION: [address] [place] [address] NEW CONSULT VISIT PATIENT INFO: Elizabeth Ly 79 year old PCP: Dexter Reyes MD [...] MG DAILY@0800 October 12, 2019 7:37am 10-12-2019 [facility] ([id number]) gabapentin (NEURONTIN) 600 mg tablet Take 600 [...] with more than 50% of the total szbl-ya-cdoy time of the visit in counseling / coordination of care. Yadi White DO MBA Letter to: Dexter Reyes MD Referring Provider: DEXTER REYES CHI [[id number]] Allergies As of Date: 04/21/2020 (No Known Allergies) Date Reviewed: 04/21/2020 Reviewed by: Yadi White - Fully Assessed Reason for Visit: Kidney Problem [61] Visit Diagnosis:Other specified disorders of kidney and ureter [N28.89] Order(s):CT KIDNEY WO/W IVCON [[id number]] Order #: [id number] FUTURE iv contrast (will be provided with [...] Status:Closed by YADI WHITE on 04/21/20 Normal [facility] PROGRESSon 04-21-2020 PROGRESS HNO ID: [id number] Author: Yadi White Service: ? Author Type: Physician Type: Progress Notes Filed: 04/21/2020 3:13 PM Note Text: ?? [facility] UROLOGY LOCATION: [address] [place] [address] NEW CONSULT VISIT PATIENT INFO: Elizabeth Modi [...] MG DAILY@0800 October 12, 2019 7:37am 10-12-2019 [facility] ([id number]) gabapentin (NEURONTIN) 600 mg tablet Take 600 [...] with more than 50% of the total kflc-xv-wfus time of the visit in counseling / coordination of care. Yadi White DO MBA Letter to: Dexter Reyes MD [facility] CN Office Visit (AGVASACC) ELIZABETH MODI ([id number]) 1940 M Date Time Provider Department 03/31/20 11:00 AM RYAN ALLEN During your visit today, we recorded the following information about you: Pulse Respiration Blood pressure Weight 78/minute 18/minute 124/70 88 kg Height 1.778 m Ryan Allen MD 03/31/2020 12:50 PM Signed I spent 15+ minutes in the visit, with more than 50% of+ the total vool-lt-vxwn time of the visit in counseling / coordination of care. This note partially generated using [employer] App voice recognition system. Mr. Modi and his daughter were seen in the office today for follow-up of his peripheral vascular disease. He's feeling up a complicated wound in the right below-knee stump but also has a left great toe nonhealing wound. I believe this is being followed by the signs and displays salesperson or the wound care center in the [facility]. He also notes that the prosthetic company is having trouble getting appropriate authorization for his prosthesis. Since the patient left I have call that office, [facility]. We have left a message from then [...] appropriate authorization for were reviewed needs from wuf[employer]. He has had a urologist in the past but can't remember the name in the [facility]. I would refer to the primary care office if they feel appropriate urologist is available locally in this patient. If not we will be happy to refer to a urologist in the [facility]. Hopefully within the next few [...] (peripheral vascular disease) (HCC) [I73.9] Other Visit Diagnoses:Below knee amputation (HCC) [S88.119A] Type 2 diabetes mellitus with other [...] (HCC) [E44.0] 08/22/2019 PVD (peripheral vascular disease) ([facility]) [I73.9] 12/07/2019 Below knee amputation ([facility]) [S88.119A] 12/07/2019 Nonhealing surgical wound [T81.89XA] 12/09/2019 Letter Text Encounter Status:Closed by RYAN ALLEN MD on 03/31/20 [facility] PROGRESSon 03-31-2020 PROGRESS HNO ID: [id number] Author: Ryan Allen Service: ? Author Type: Physician Type: Progress Notes Filed: 03/31/2020 12:50 PM Note Text: I spent 15+ minutes in the visit, with more than 50% of+ the total amov-gl-ctpl time of the visit in counseling / coordination of care. This note partially generated using [employer] Simple[employer] Fast and Elegant Tablet [employer] App voice recognition system. Mr. Modi and his daughter were seen in the office today for follow-up of his peripheral vascular disease. He's feeling up a complicated wound in the right below-knee stump but also has a left great toe nonhealing wound. I believe this is being followed by the signs and displays salesperson or the wound care center in the [facility]. He also notes that the prosthetic company is having trouble getting appropriate authorization for his prosthesis. Since the patient left I have call that office, [facility]. We have left a message from then [...] appropriate authorization for were reviewed needs from wufoo. He has had a urologist in the past but can't remember the name in the [facility]. I would refer to the primary care office if they feel appropriate urologist is available locally in this patient. If not we will be happy to refer to a urologist in the [facility]. Hopefully within the next few [...] is taking statin and aspirin medications. [facility] CNPNon 03-04-2020 [facility] Telephone (AGAugmedix) ELIZABETH MODI ([id number]) 1940 M Date Time Provider Department 03/04/20 [facility] During your visit today, we [...] Status:Closed by LUDIVINA WHITFIELD on 03/04/20 [facility] CTA ABD/PEL/LOWER EXT WO/W I VCONon 02-28-2020 CTA ABD/PEL/LOWER EXT WO/W IVCON Final Report DATE OF EXAM: Feb 28 2020 4:00PM [facility] 0465 - CTA ABD/PEL/LOWER EXT WO/W [...] renal protocol CT or MRI. 2. Right mirnf-jwr-cntq amputation. No subcutaneous fat stranding or fluid collection. Other chronic findings, as above. Supervisor Operations: PSCB Transcribe Date/Time: Mar 02 2020 2:59P Dictated by : ANDRE BUI MD This examination was interpreted and the report reviewed and electronically signed by: ANDRE BUI MD on Mar 02 2020 3:31PM EST [facility] Office Visit (AGVASACC) ELIZABETH MODI ([id number]) 1940 M Date Time Provider Department 02/13/20 1:30 PM MARIA ESTHER GUSMAN (ADMISSION SPECIALIST, OPERATIONS WELDER)LUCRECIA During your visit today, we recorded the following information about you: Pulse Respiration Blood pressure Weight 76/minute 18/minute 118/64 88 kg Height 1.778 m Maria Esther Gusman APRN.OPERATIONS WELDER, OPERATIONS WELDER 02/13/2020 4:20 PM Signed Elizabeth Modi 79 [...] He has not been in contact with [employer] in some time, as he was advised to wait until cleared from the wound vac. Additionally, he reports that he's been seeing a placement specialist for the wounds on his left [...] Stable post op; [facility]; Will discuss with Dr. Allen plan for evaluation/treatment of LLE with continued wounds. PLAN: Will proceed with CTA to further evaluation LLE at this time. Pt encouraged to call with any questions, problems, concerns, or changes. The patient is currently taking a statin: Yes The patient is currently taking aspirin: Yes Maria Esther Gusman APRN.OPERATIONS WELDER Referring Provider: SELF [200] Allergies As of [...] [I99.8] Order(s):CTA ABD/PEL LOWER EXTREM WO/W IVCON [[id number]] Order #: [id number] FUTURE iv contrast (will be provided with [...] EachRfl: 0 CREATININE BLD [SQCRET] Order #: [id number] FUTURE Prescriptions as of 02/13/2020 Sig: INSULIN [...] MARIA ESTHER GUSMAN CNP on 02/13/20 [facility] PROGRESSon 02-13-2020 PROGRESS HNO ID: [id number] Author: Maria Esther (Global Process Owner Gurwinder) GURWINDER Gusman Service: ? Author Type: [...] He has not been in contact with [employer] in some time, as he was advised to wait until cleared from the wound vac. Additionally, he reports that he's been seeing a placement specialist for the wounds on his left [...] Stable post op; OK to follow-up with [employer] for RLE prosthetic; Will discuss with Dr. Allen plan for evaluation/treatment of LLE with continued wounds. PLAN: Will proceed with CTA to further evaluation LLE at this time. Pt encouraged to call with any questions, problems, concerns, or changes. The patient is currently taking a statin: Yes The patient is currently taking aspirin: Yes Maria Esther Gusman APRN.GURWINDER [facility] (AGAugmedix) ELIZABETH MODI ([id number]) 1940 M Date Time Provider Department 02/05/20 RYAN ALLEN During your visit today, we recorded the following information about you: Luke Pérez LPN 02/05/2020 10:51 AM Signed Millie from [facility] called stating that there has [...] 02/05/2020 11:24 AM Signed Relayed information to [facility] nurse. Acknowledged new order for [...] by LUKE PÉREZ LPN on 02/05/20 [facility] CNOVon 01-08-2020 CNOV Office Visit (AGVASACC) ELIZABETH MODI ([id number]) 1940 M Date Time Provider Department 01/08/20 3:30 PM RYAN ALLEN During your visit today, we recorded the following information about you: Pulse Respiration Blood pressure Weight 78/minute 18/minute 126/70 88.9 kg Height 1.778 m Ryan Allen MD 01/08/2020 4:01 PM Signed This note was partially generated using [employer] Simple, Fast and Elegant Tablet [employer] App voice recognition system. Is a postop visit [...] [S88.119A] Other Visit Diagnosis:PVD (peripheral vascular disease) ([facility]) [I73.9] Prescriptions as of 01/08/2020 Sig: [...] by RYAN ALLEN MD on 01/08/20 [facility] Telephone (AGBLAIRACC) ELIZABETH MODI ([id number]) 1940 M Date Time Provider Department 01/08/20 RYAN ALLEN During your visit today, we recorded the following information about you: Luke Pérez LPN 01/08/2020 1:18 PM Signed Millie [facility] nurse called to let us [...] Allergies) Date Reviewed: 12/10/2019 Reviewed by: Lois SantiagoRn) YURI Mccall - Fully Assessed Reason for [...] MARIA ESTHER GUSMAN CNP on 01/08/20 [facility] PROGRESSon 01-08-2020 PROGRESS HNO ID: [id number] Author: Ryan Allen Service: ? Author Type: Physician Type: Progress Notes Filed: 01/08/2020 4:01 PM Note Text: This note was partially generated using [employer] Simple, Fast and Elegant Tablet Sales App voice recognition system. Is a postop visit [...] continues to make progress with wound. [facility] CASE MANAGEMon 12-11-2019 CASE MANAGEM HNO ID: [id number] Author: Tami Izquierdo) YURI Patricio Service: Care Management Author Type: Registered Nurse Type: Care Mgt Progress Note Filed: 12/11/2019 3:28 PM Note Text: CARE MANAGEMENT DISCHARGE NOTE SERVICE DATE: 12/11/2019 SERVICE TIME: 3:27 PM LOS: 2 days Admission Date: 12/09/2019 DISCHARGE ARRANGEMENT (list agency and phone number) Discharge Arrangement: Home Fpc Care: Nursing;OT;PT Provider Name: [facility] Phone: . CAREGIVER ASSESSMENT: Caregiver is ready, willing and able to meet the patient's needs as recommended by the inter-professional team:: Yes Does the patient have an acute stroke diagnosis, or has the patient had a stroke during this admission?: No Patient's transition needs and plan for meeting these needs: Home with [facility]. HANDOFF COMMUNICATION: TRANSPORTATION ARRANGEMENTS: Transportation Arrangements: Car ADDITIONAL CONTACT RESOURCES: Pts wound vac approved through [facility]. SIGNATURE: Tami Patricio RN PATIENT NAME: Elizabeth Modi DATE: December 11, 2019 TIME: 3:27 PM PAGER/CONTACT #: [phone] [facility] CONSULT PROGon 12-11-2019 CONSULT PROG HNO ID: [id number] Author: Adali Murry Service: Wound Care Team Author Type: Nurse Specialist Type: Consult Progress Note Filed: 12/11/2019 2:39 PM Note Text: WOUND CARE CONSULT ADMISSION SPECIALIST NOTE SERVICE DATE: 12/11/2019 SERVICE TIME: 1315 TIME SPENT (minutes): 45 REASON FOR CONSULT: Eval R BKA, wound vac change CHIEF COMPLAINT: c/o open wound to R lateral BKA Subjective HISTORY OF PRESENT ILLNESS: Mr. Modi is a 79 year old male who is seen today with [facility] Wound/forming process line worker, and presented to hospital w/ R BKA [...] Hospital. Photos are uploaded by the wound rn coronary care unit and may not be immediately available for viewing. Contact the wound and ostomy care department with questions. SIGNATURE: Adali Murry APRN.SOLAR CREW MEMBER PATIENT NAME: Elizabeth Modi DATE: December 11, 2019 TIME: 2:24 PM CONTACT#: [id number] [facility] Glucose Meteron 12-11-2019 Glucose [Mass/Vol] 126 mg/dL High 70-99 [facility] Comment on above: Result Comment: RN N OTIFIED Performed By: #### M AG #### [place] [address] OPERATIVE NOon 12-11-2019 OPERATIVE NO HNO ID: [id number] Author: Ryan Allen Service: ? Author Type: Physician Type: Operative Report Filed: 12/11/2019 1:51 PM Note Text: [facility] - Operative Report ELIZABETH MODI : 1940 AGE: 79. SEX: M PATIENT TYPE: I HOSP SVC: KEENAN LOCATION: [facility] ATTENDING PHYSICIAN: RYAN ALLEN CSN NUMBER: [id number] DATE OF SURGERY/PROCEDURE: 12/09/2019 INCISION/PROCEDURE START TIME: 10:54 AM INCISION CLOSE/PROCEDURE END TIME: 11:10 AM PREOPERATIVE DIAGNOSIS: Nonhealing wound, status post right below-knee amputation. POSTOPERATIVE DIAGNOSIS: Nonhealing wound, status post right below-knee amputation. SURGEON: Ryan Allen MD, FACS RADIOLOGY SERVICES MANAGER: 1. Sunny Brito MD. 2. Mara Godinez SA. SURGERY/PROCEDURE: Irrigation and debridement of right lower extremity wound with placement of wound VAC. ANESTHESIA: General HISTORY: This is a 79-year-old gentleman, who has undergone multiple procedures with the Vascular Service at [facility]. Ultimately, unfortunately this has terminated in a below-knee amputation. In his followup, he was seen at the [facility] office in [place] by Dr. Gordo Figueroa and it was [...] satisfactory postoperative condition. Ryan Allen MD, FACS RGN:[id number] /[id number] cc:Macho Reyes MD [facility] PLAN OF CAREon 12-11-2019 PLAN OF CARE HNO ID: [id number] Author: Olga Parekh (In Flight Refueling System Repairer) Service: ? Author Type: ? Type: Plan of Care Filed: 12/11/2019 11:33 AM Note Text: CONSULTING NURSE BEDSIDE DELIVERY SURVEY 1. Patient to use [facility] Bedside Delivery - YES Insurance Information as follows: 2. Insurance card on file - YES 3. Credit card for payment - N/A Please call pharmacy bedside delivery at [phone] or [phone] if patient would like medications filled and delivered prior to discharge. Olga Parekh (In Flight Refueling System Repairer) [facility] PROGRESSon 12-11-2019 PROGRESS HNO ID: [id number] Author: Rohan Duran DO Service: Vascular Surgery [...] questions or concerns Mon-Fri 6a-5p please page [phone]. After 5pm and on Weekends and Holidays, please page [phone] if in ICU or [phone] if on RNF. Subjective SUBJECTIVE: NAEON. Did [...] IANDO: Date 12/10/19 07 - 12/11/1965812/11/19699 - 12/12/1958 Shift 8921-5693 0083-4074 3241-9752 24 Hour Total 5940-4369 0854-0816 3329-4497 24 Hour Total INTAKE Shift Total OUTPUT Urine 083 199 9497 Void (ml) 360 396 9596 Drains 0 0 Negative Pressure: Output (mL) 0 0 # of BMs Number of BMs 1 x 1 x Shift Total 119 787 6980 Weight (kg) 88.2 88.2 88.2 88.2 88.2 [...] ICU or 2174 if on RNF. [facility] PT EDon 12-11-2019 PT ED HNO ID: [id number] Author: Isac Navarro (Pharmacist) Service: Pharmacy Author [...] Cap Generic drug: Cholecalciferol (Vitamin D3) [facility] THERAPY NTon 12-11-2019 THERAPY NT HNO ID: [id number] Author: Maricarmen SantiagoOtr/Vickie Good Service: Occupational Therapy Author Type: Occupational Therapist Type: Therapy (PT/OT/Speech/Resp) Filed: 12/11/2019 3:31 PM Note Text: Occupational Therapy Evaluation SERVICE DATE: 12/11/2019 SERVICE TIME: 1435 to 1459 ROOM: [place] [address] Recommended Discharge Disposition: Home OT Recommended Discharge [...] living (ADL) Interventions Provided: Evaluation $ Evaluation-Moderate (92655) Billed Units: 1 unit OT Evaluation Moderate [...] December 11, 2019 TIME: 3:28 PM [facility] THERAPY NT HNO ID: [id number] Author: Marilyn Flores Service: Physical Therapy Author Type: Physical Therapist Type: Therapy (PT/OT/Speech/Resp) Filed: 12/11/2019 2:48 PM Note Text: Physical Therapy Evaluation SERVICE DATE: 12/11/2019 SERVICE TIME: 1341 to 1408 ROOM: [place] [address] Recommended Discharge Disposition: Home PT Recommended Discharge [...] Difficulty walking-musculoskeleta l Interventions Provided: Evaluation;Therapeutic Activity (88245) $ Evaluation-Moderate (38713) Billed Units: 1 unit History and examination of body systems see assessment section above. This patient?s clinical presentation is evolving. The patient required a moderate complexity evaluation. Therapeutic Activity (78583) Treatment Minutes: 11 1 unit Skilled Intervention(s): [...] December 11, 2019 TIME: 2:44 PM [facility] Basic Metabolic Panelon 06-2 Anion gap [Moles/Vol] 13 mmol/L Normal 9-18 [facility] Comment on above: Performed By: #### C BC1 #### [facility] [address] [place], [place] [address] Calcium [Mass/Vol] 9.0 mg/dL Normal 8.5-10.2 [facility] Comment on above: Performed By: #### C BC1 #### [facility] [address] [place], [place] [address] Chloride [Moles/Vol] 100 mmol/L Normal 97-105 [facility] Comment on above: Performed By: #### C BC1 #### [facility] [address] [place], [place] [address] CO2 Blood 25 mmol/L Normal 22-30 [facility] Comment on above: Performed By: #### C BC1 #### [facility] [address] [place], [place] [address] Creatinine [Mass/Vol] 1.14 mg/dL Normal 0.73-1.22 [facility] Comment on above: Performed By: #### C BC1 #### [facility] [address] [place], [place] [address] Glucose [Mass/Vol] 113 mg/dL High 74-99 [facility] Comment on above: Result Comment: The [place] Diabetes Association (ADA) provides guidance for cutoff [...] Standards of Medical Care in Diabetes 2016; [place] Diabetes Association. Diabetes Care. 2016;39(Suppl 1). Performed By: #### C BC1 #### [facility] [address] [place], [place] [address] Potassium [Moles/Vol] 4.1 mmol/L Normal 3.7-5.1 [facility] Comment on above: Performed By: #### C BC1 #### [facility] [address] [place], [place] [address] Sodium [Moles/Vol] 138 mmol/L Normal 136-144 [facility] Comment on above: Performed By: #### C BC1 #### [facility] [address] [place], [place] [address] Urea nitrogen [Mass/Vol] 22 mg/dL Normal 9-24 [facility] Comment on above: Performed By: #### C BC1 #### [facility] [address] [place], [place] [address] CASE MGT INIT ASSESon 2019 CASE MGT INIT ASSES HNO ID: [id number] Author: Tami SantiagoRn) YURI Patricio Service: Care Management Author Type: Registered Nurse Type: Care Mgt Initial Assessment Filed: 12/10/2019 10:48 AM Note Text: CARE MANAGEMENT: ASSESSMENT AND DISCHARGE PLAN SERVICE DATE: December 10, 2019 SERVICE TIME: 10:47 AM PRIMARY CARE PHYSICIAN: Dexter Reyes MD ADMISSION STATUS: Inpatient Needs Prior to Discharge: Home Care Order MEDICAL: [facility] Patient/Resident Care Associate Stated Goals: To have reduction in symptoms Health Insurance: [place] [employer] Issues Impacting Discharge Plan: None Last Discharge Date: 09/11/19 Is this Within the Past 30 days? Last discharge within 30 days: No Advance Directive: Current Advance Directive: Health Care Power of Clinical Education Consultant In Chart: No Software Project Lead Attempted to Assist with AD Completion: No [...] or Home Care?: Home Health Care Agency([facility]) Equipment Prior to Admission: Wheelchair;Other: See [...] Mostly I feel financially burdened by my szd-uh-cmgyyf expenses for my prescription medication:: 0 - Disagree Somewhat Risk Score: 0 Patient is categorized as: Low risk < 2 Are you interested in bedside delivery of your medications? No Is Patient Psychosocially Complex?: No ASSESSMENT AND PLAN: Medical Needs: Medical Needs: Two or more chronic diseases Psychosocial Needs: Psychosocial Needs: None FREEDOM OF CHOICE EXPLAINED: [place] of Choice Given: Yes(Pt would like to resume hhc with [facility].) POTENTIAL TRANSITION PLANS Home Care Spoke with pt at the bedside. Pt states that he has been staying with his daughter. Active with [facility]. Plan for pt to return home with [facility]. Pt will need wound vac at d/c- script placed on chart to be signed. Family to transport home when medically stable. Will follow. SIGNATURE: Tami Patricio RN PATIENT NAME: Elizabeth Modi DATE: December 10, 2019 TIME: 10:47 AM PAGER/CONTACT #: [phone] [facility] Hemogramon 12-10-2019 Erythrocyte distribution width (RBC) [Ratio] 14.1 % Normal 11.6-14.4 [facility] Comment on above: Performed By: #### P 8 #### [facility] [address] [place] [address] Hematocrit (Bld) [Volume fraction] 38.9 % Low 40.1-51.0 [facility] Comment on above: Performed By: #### P 8 #### [facility] [address] [place], [place] [address] Hemoglobin (Bld) [Mass/Vol] 12.3 g/dL Low 13.7-17.5 [facility] Comment on above: Performed By: #### P 8 #### [facility] [address] [place] [address] MCH (RBC) [Entitic mass] 27.8 pg Normal 25.7-32.2 [facility] Comment on above: Performed By: #### P 8 #### [facility] [address] [place] [address] MCHC (RBC) [Mass/Vol] 31.6 % Low 32.3-36.5 [facility] Comment on above: Performed By: #### P 8 #### [facility] [address] [place] [address] MCV (RBC) [Entitic vol] 88.0 fL Normal 83.2-95.[address] [facility] Comment on above: Performed By: #### P 8 #### [facility] [address] [place] [address] Platelet mean volume (Bld) [Entitic vol] 10.5 fL Normal 8.7-12.0 [facility] Comment on above: Performed By: #### P 8 #### [facility] [address] [place], [place] [address] Platelets (Bld) [#/Vol] 285 thou/cmm Normal 141-365 [facility] Comment on above: Performed By: #### P 8 #### [facility] [address] [place], [place] [address] RBC (Bld) [#/Vol] 4.42 mil/cmm Low 4.63-6.08 [facility] Comment on above: Performed By: #### P 8 #### [facility] [address] [place], [place] [address] RDW SD 45.4 fl Normal 36.1-45.8 [facility] Comment on above: Performed By: #### P 8 #### [facility] [address] [place], [place] [address] WBC (Bld) [#/Vol] 9.86 thou/cmm High 4.23-9.07 [facility] Comment on above: Performed By: #### P 8 #### [facility] [address] [place], [place] [address] MDRD GFRon 12-10-2019 GFR/1.73 sq M predicted among non-blacks MDRD (S/P/Bld) [Vol rate/Area] mL/min/{1.73_m2} Normal >60mL/min/1 .73m2 [facility] Comment on above: Result Comment: If t he patient is , multiply the result by 1.210. Performed By: #### M AG #### [facility] [address] [place], [place] [address] PLAN OF CAREon 12-10-2019 PLAN OF CARE HNO ID: [id number] Author: Isac Navarro (Pharmacist) Service: Pharmacy Author [...] medication history: Yes Reconciliation completed? Yes All BATCH ROOM TECHNICIAN medications addressed by LIP Additional comments: [...] has only been using this once daily BATCH ROOM TECHNICIAN Paged Gen Surgery (2123) about these findings Gjimd-va-Rqmoaswde Medication List Adjustments: Medication Regimen Changes: Gabapentin [...] Known Allergies Preferred Pharmacy: [facility] Current BATCH ROOM TECHNICIAN Medications: Prior to Admission medications as [...] daily. 12/08/2019 at Unknown time Yes ISAC NAVARRO PHARMACIST December 10, 2019 2:15 PM [facility] PROGRESSon 12-10-2019 PROGRESS HNO ID: [id number] Author: Rohan Duran DO Service: Vascular Surgery [...] questions or concerns Mon-Fri 6a-5p please page [phone]. After 5pm and on Weekends and Holidays, please page [phone] if in ICU or [phone] if on RNF. Subjective SUBJECTIVE: NAEON. Tolerating [...] 0659 12/10/19 07 - 12/11/19 0659 Shift 2055-9430 0084-4039 2027-8142 24 Hour Total 7148-5454 3179-8732 8238-9628 24 Hour Total INTAKE IV 400 400 OR Crystalloid intake (mL) 300 300 Volume (mL) (lactated ringers infusion) 100 100 Shift Total 400 400 OUTPUT Urine 859 519 8264 Void (ml) 151 720 5249 Shift Total 538 251 9812 Weight (kg) 88.2 88.2 88.2 88.2 88.2 [...] questions or concerns Mon-Fri 6a-5p please page [phone]. After 5pm and on Weekends and Holidays, please page [phone] if in ICU or [phone] if on RNF. [facility] ANES [place] 12-09-2019 ANES POST HNO ID: [id number] Author: Sal Ochoa Service: Anesthesiology Author Type: [...] 2019 TIME: 11:41 AM PAGER/CONTACT #: [facility] ANES PREOPon 12-09-2019 ANES PREOP HNO ID: [id number] Author: Sal Ochoa Service: Anesthesiology Author Type: [...] File Prior to Encounter Medication Sig - luhkb-0v-vvm-epa-fish oil-D3 667-250 mg-unit cap Take 1 tablet [...] injection (XYLOCAINE) 0.1-0.2 mL INTRADERMAL PRN Ryan Mason Maidaguadalupe - lactated ringers infusion 5-30 mL/hr [...] December 09, 2019 TIME: 9:05 AM CSN: [id number] [facility] BRIEF OP NOTon 12-09-2019 BRIEF OP NOT HNO ID: [id number] Author: Sunny Brito Service: Vascular Surgery Author [...] BRIEF OPERATIVE / PROCEDURE NOTE LOG ID: [id number] SURGERY/PROCEDURE DATE: 12/09/2019 INCISION/PROCEDURE START TIME: 10:54 AM INCISION CLOSE/PROCEDURE END TIME: 11:10 AM SURGEON(S)/PROCEDURALI ST(S) AND RADIOLOGY SERVICES MANAGER(S): Surgeon(s) and Role: * Ryan Allen - Primary * Sunny Brito - Resident - Assisting Child Care Teacher: Mara Godinez SA SURGERY/PROCEDURE(S): irrigation and debridement right lower extremity wound, placement of wound vac ANESTHESIA: General FINDINGS: draining right lower extremity wound ESTIMATED BLOOD LOSS: 2 mls SPECIMENS: debrided tissue COMPLICATIONS: None PRE-OP/PRE-PROCEDURE DIAGNOSIS: right lower extremity wound POST-OP/POST-PROCEDURE DIAGNOSIS: Same as Preop SIGNATURE: Sunny Brito MD PATIENT NAME: Elizabeth Modi DATE: December 09, 2019 TIME: 11:45 AM PAGER/CONTACT #: Normal [facility] Cult and Smr CAROLINE and AERon 0 12-09-2019 Cult and Smr CAROLINE and AER Test performed at [facility] Moderate Mixed skin javier. No anaerobic organisms cultured Few Gram positive cocci Few Polymorphonuclear leukocytes Normal [facility] Comment on above: Performed By: #### P 8 #### [facility] [address] [place] [address] HISTORY PHYSICALon 0 HISTORY PHYSICAL HNO ID: [id number] Author: Sunny Brito Service: Vascular Surgery Author [...] , Rfl: , 12/08/2019 at Unknown time opdyt-7l-enh-epa-fish oil-D3 667-250 mg-unit cap, Take 1 tablet [...] 09, 2019 TIME: 10:14 AM PAGER/CONTACT #: [phone] [facility] NURSING PROGon 12-09-2019 NURSING PROG HNO ID: [id number] Author: Dakota (Rn) YURI Rodriguez Service: ? Author Type: Registered Nurse Type: Nursing Progress Note Filed: 12/09/2019 12:59 PM Note Text: FBG done by Belkis VALE [facility] PROGRESSon 12-07-2019 PROGRESS HNO ID: [id number] Author: Gordo Figueroa Service: ? Author Type: [...] Outpatient Medications Medication Sig Dispense Refill - aysca-3d-bmv-epa-fish oil-D3 667-250 mg-unit cap Take 1 tablet [...] with us next Monday at the [facility]. Gordo Figueroa MD [facility] CNOVon 12-06-2019 [facility] Office Visit (AGMIL) ELIZABETH MODI ([id number]) 1940 M Date Time Provider Department 12/06/19 [...] Outpatient Medications Medication Sig Dispense Refill - rujaa-7l-ppl-epa-fish oil-D3 667-250 mg-unit cap Take 1 tablet [...] up with us next Monday at the [facility]. Gordo Figueroa MD Referring Provider: SELF [200] Allergies As of Date: 12/06/2019 (No Known Allergies) Date Reviewed: 12/06/2019 Reviewed by: Ryan Allen - Fully Assessed Reason for Visit: Peripheral Vascular Disease (PVD) [3545] Cmt: Elizabeth is post op 09/05/19 Revision Rt BKA Primary Visit Diagnosis:PVD (peripheral vascular disease) ([facility]) [I73.9] Other Visit Diagnosis:Below knee amputation ([facility]) [S88.119A] Prescriptions as of 12/06/2019 Sig: OMEGA-3S 667 TB-BFS-OWR-FISH * Take 1 tablet by mouth once [...] Status:Closed by GORDO FIGUEROA MD on 12/07/19 [facility] Beau 12-06-2019 [facility] Telephone ([employer]) ELIZABETH MODI ([id number]) 1940 M Date Time Provider Department 12/06/19 RYAN ALLEN During your visit today, we recorded the following information about you: Allergies As of Date: 12/06/2019 (No Known Allergies) Date Reviewed: 12/06/2019 Reviewed by: Gordo Figueroa - Fully Assessed Reason for Visit: Schedule Surgery [1330] Primary Visit Diagnosis:PVD (peripheral vascular disease) ([facility]) [I73.9] Order(s):SURGICAL REQUEST - ELECTIVE [1106139] Order #: [id number]: 1 HANDP FOR SURGERY [[id number]] Order #: [id number] PRE-PROCEDURE AND PRE-OPERATIVE COVID [SQPOCOVD] Order #: [id number] FUTURE CBC [SQCBC] Order #: [id number] FUTURE BASIC METABOLIC PNL [SQBMP] Order #: [id number] FUTURE PROTHROMBIN TIME/PT [SQPT] Order #: [id number] FUTURE Prescriptions as of 12/06/2019 Sig: OMEGA-3S 667 BO-AKR-QSX-FISH * Take 1 tablet by mouth once [...] Status:Closed by RYAN ALLEN MD on 12/06/19 Normal [facility] HOSPon 12-06-2019 HOSP Patient:Elizabeth Modi MRN: Height:5' 10"(1.778 m) Weight:186 lb (84.369 kg) Outpatient Medications as of 12/09/19: lipox-2v-nip-epa-fish oil-D3 667-250 mg-unit cap zinc sulfate (ORAZINC [...] the following basenames: K,HCT Progress Notes ([facility]): Gordo Figueroa MD 12/07/2019 10:39 AM Signed Elizabeth Modi is a 79 year old male here for follow-up below-knee amputation on the right. HPI: aTna was seen originally by Dr. Parmar had [...] Outpatient Medications Medication Sig Dispense Refill - tymzl-1b-vqd-epa-fish oil-D3 667-250 mg-unit cap Take 1 tablet [...] up with us next Monday at the [facility]. Gordo Figueroa MD [facility] CASE MANAGEMon 09-11-2019 CASE MANAGEM HNO ID: [id number] Author: Tiffanie (Rn) YURI Travis Service: Care Management Author Type: Registered Nurse Type: Care Mgt Progress Note Filed: 09/11/2019 12:54 PM Note Text: CARE MANAGEMENT DISCHARGE NOTE SERVICE DATE: 09/11/2019 SERVICE TIME: 12:42 PM LOS: 21 days Admission Date: 08/21/2019 DISCHARGE ARRANGEMENT (list agency and phone number) Discharge Arrangement: long-term facility Was an expedited discharge program used?: No Provider Name: [facility] CAREGIVER ASSESSMENT: HANDOFF COMMUNICATION: Handoff to: Primary Care Physician TRANSPORTATION ARRANGEMENTS: Transportation Arrangements: Ambulance/[employer] [employer] Agency and Phone #:: [facility] ( 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 [employer] is transporting patient via cot at 13:00. Patient notified of discharge. He initially resisted stating he wanted to go to [facility]. Explained that he asked [employer] to have his dtr Angelic makethe decision and she chose [facility]. Patient reluctantly agreed to discharge. Encouraged patient to discuss with staff there if he is not happy with the rehab and still wishes to go to [place]. Patent's dtr Angelic notified. SIGNATURE: Tiffanie Travis RN PATIENT NAME: Elizabeth Modi DATE: September 11, 2019 TIME: 12:41 PM PAGER/CONTACT #: [phone] [facility] CASE MANAGEM HNO ID: [id number] Author: Tiffanie SantiagoRn) YURI Travis Service: Care Management Author Type: Registered Nurse Type: Care Mgt Progress Note Filed: 09/11/2019 9:48 AM Note Text: CARE MANAGEMENT PROGRESS NOTE SERVICE DATE: 09/11/2019 SERVICE TIME: 9:47 AM LOS: 21 days Auth received for [facility]. notified. SIGNATURE: Tiffanie Travis RN PATIENT NAME: Elizabeth Modi DATE: September 11, 2019 TIME: 9:47 AM PAGER/CONTACT #: [phone] [facility] CONSULT PROGon 09-11-2019 CONSULT PROG HNO ID: [id number] Author: Doris Eden Service: Endocrinology Author Type: Physician Type: Consult Progress Note Filed: 09/11/2019 7:56 AM Note Text: ENDOCRINOLOGY CONSULT PROGRESS NOTE SERVICE DATE: 09/11/2019 SERVICE TIME: 7:40 AM Subjective INTERVAL HPI: Pt followed for diabetes mellitus type 2 with complications. Tr from [facility]; adm for right foot infection and gangrene; [...] Assessment AND Plan: on Boost supplements SIGNATURE: Doirs Eden MD PATIENT NAME: Elizabeth Modi DATE: September 11, 2019 TIME: 7:56 AM PAGER: [phone] Normal [facility] Glucose Meteron 09-11-2019 Glucose [Mass/Vol] 173 mg/dL High 70-99 [facility] Comment on above: Result Comment: YURI N OTIFIED Performed By: #### G LMET #### [facility] [address] [place] [address] NUTRITIONon 09-11-2019 NUTRITION HNO ID: [id number] Author: Snow Serna Service: Nutrition Therapy Author Type: Registered Dietitian Type: Nutrition Filed: 09/11/2019 12:51 PM Note Text: NUTRITION THERAPY PROGRESS NOTE SERVICE DATE: 09/11/2019 SERVICE TIME: 12:36 PM Nutrition Assessment: Recommended Malnutrition Diagnosis: Moderate Protein-Calorie Malnutrition (09/06/19 1155 : Tanja Byrne RD) Estimated kilocalorie needs: 6173-9149 Calorie Calculation Method: 30-35 kcals/kg Estimated protein [...] September 11, 2019 TIME: 12:36 PM PAGER: [phone] [facility] PLAN OF CAREon 09-11-2019 PLAN OF CARE HNO ID: [id number] Author: Francine Pineda (Pharmacist) Service: Pharmacy Author [...] PHARMACIST September 11, 2019 11:45 AM Pager: [phone] 09/11/2019 11:45 AM Medication List START taking [...] IR 5 mg immediate release tablet Normal [facility] PROGRESSon 09-11-2019 PROGRESS HNO ID: [id number] Author: Tom Prescott DO Service: General Surgery [...] questions or concerns Mon-Fri 6a-5p please page [phone]. After 5pm and on Weekends and Holidays, please page [phone] if in ICU or [phone] if on RNF. Subjective SUBJECTIVE: Patient seen and examined this morning. SARATH. States his pain is currently 8/10 in severity, took tylenol mostly for pain control. Dressing taken down this morning, incision examined. Still awaiting precert at [facility]. Continues to do knee exercises, in knee [...] 0659 09/11/19 07 - 09/12/19 0659 Shift 2484-7166 0290-8227 5996-8313 24 Hour Total 2817-8040 3244-3555 5095-0856 24 Hour Total INTAKE PO 120 120 PO 120 120 Shift Total 120 120 OUTPUT Urine 441 978 4709 2120 Void (ml) 916 732 6621 2120 Urine Not Saved. 1 x 1 x # of BMs Number of BMs 1 x 1 x 2 x Shift Total 383 127 7604 2120 Weight (kg) 87.7 87.7 87.6 87.6 [...] C/D/I with luly- healing well, minimal edema-stump him specialist in place. SKIN: Skin color, texture, turgor [...] lower extremity angiogram with partial occlusion R CARE INFORMATION ASSOCIATE, reconstitution at R below knee pop, 2-vessel runoff. Antibiotics stopped 08/23, remains non-septic. 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 09/02 PVR R calf 0.51, R low thigh 0.74. 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 Allen SIGNATURE: Tom Prescott DO PATIENT NAME: Elizabeth Modi DATE: September 11, 2019 TIME: 6:48 AM Vascular AND Thoracic Surgery Service Pager: For questions or concerns Mon-Fri 6a-5p please page [phone]. After 5pm and on Weekends and Holidays, please page [phone] if in ICU or [phone] if on RNF. Normal [facility] THERAPY NTon 09-11-2019 THERAPY NT HNO ID: [id number] Author: Ramón Obrien) Poppy Service: Physical Therapy Author Type: Box Icer Type: Therapy (PT/OT/Speech/Resp) Filed: 09/11/2019 12:04 PM Note Text: Attestation signed by Tori SantiagoPt) Santos at 09/12/2019 3:52 PM I reviewed and agree with the documentation corresponding to this therapy visit. SIGNATURE: Tori Graham PT DATE: September 12, 2019 TIME: 3:52 PM Physical Therapy Treatment SERVICE DATE: 09/11/2019 SERVICE TIME: 1036 to 1111 ROOM: [id number] Recommended Discharge Disposition: Acute Rehab Recommended Discharge [...] l;Muscle Weakness (generalized) Interventions Provided: Therapeutic Exercise (20068);Therapeutic Activity (62745) Therapeutic Exercise (23263) Treatment Minutes: 18 1 unit Skilled Intervention(s): [...] and quad sets x10 hour. 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 Tr from [facility]; adm for right foot infection and gangrene; [...] RRR Abdomen soft, no masses Extremities: has dressing/him specialist on R leg stump; dressing on left [...] September 10, 2019 TIME: 7:55 AM PAGER: [phone] Normal [facility] PROGRESSon 09-10-2019 PROGRESS HNO ID: [id number] Author: Jennifer Crooks Service: Vascular Surgery Author [...] O2 Therapy: Room Air IANDO: Date 09/09/19 07 - 09/10/19 0659 09/10/19 07 - 09/11/19 0659 Shift 0634-1918 9690-9539 1523-4184 24 Hour Total 9479-0590 5159-1872 5242-7726 24 Hour Total INTAKE Shift Total OUTPUT Urine 427 428 7604 Void (ml) 909 374 3595 # of BMs Number of BMs 1 x 1 x 2 x Shift Total 806 572 9188 Weight (kg) 87.7 87.7 87.7 87.7 87.7 [...] lower extremity angiogram with partial occlusion R CARE INFORMATION ASSOCIATE, reconstitution at R below knee pop, 2-vessel runoff. Antibiotics stopped 08/23, remains non-septic. 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 09/02 PVR R calf 0.51, R low thigh 0.74. 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 ? Plan: -?DIET HEART HEALTHY? 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 Dressing changed re-applied stump him specialist today. Knee immobilize q4hr - Pain control - PT/OT?recs:?acute rehab - [facility] ppx - Mobilization as able, out of bed to chair?as tolerated - PAD - continue statin?and aspirin - [facility] Service Pager: For questions or concerns Mon-Mon 6a-5p please page [phone]. After 5pm and on Weekends and Holidays, please page [phone] if in ICU or [phone] if on RNF. SIGNATURE: Jennifer Crooks MD PATIENT NAME: Elizabeth Modi DATE: September 10, 2019 TIME: 6:28 AM Pager: [facility] THERAPY NTon 09-10-2019 THERAPY NT HNO ID: [id number] Author: Ramón Obrien) Poppy Service: Physical Therapy Author Type: Box Icer Type: Therapy (PT/OT/Speech/Resp) Filed: 09/10/2019 12:18 PM Note Text: Attestation signed by Tori SantiagoPt) Santos at 09/11/2019 11:35 AM I reviewed and agree with the documentation corresponding to this therapy visit. 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 Performed By: #### C BC1 #### [facility] [address] [place], [place] [address] Anion gap [Moles/Vol] 13 mmol/L Normal 8-16 [facility] Comment on above: Performed By: #### C BC1 #### [facility] [address] [place], [place] [address] CO2 [Moles/Vol] 24 mmol/L Normal 21-32 [facility] Comment on above: Performed By: #### C BC1 #### [facility] [address] [place], [place] [address] Urea nitrogen [Mass/Vol] 23 mg/dL High 7-18 [facility] Comment on above: Performed By: #### C BC1 #### [facility] [address] [place], [place] [address] Calcium [Mass/Vol] 8.9 mg/dL Normal 8.5-10.1 [facility] Comment on above: Performed By: #### C BC1 #### [facility] [address] [place], [place] [address] Glucose [Mass/Vol] 79 mg/dL Normal 70-99 [facility] Comment on above: Performed By: #### C BC1 #### [facility] [address] [place], [place] [address] Chloride [Moles/Vol] 100 mmol/L Normal 98-107 [facility] Comment on above: Performed By: #### C BC1 #### [facility] [address] [place], [place] [address] Potassium [Moles/Vol] 4.0 mmol/L Normal 3.5-5.1 [facility] Comment on above: Performed By: #### C BC1 #### [facility] [address] [place], [place] [address] Sodium [Moles/Vol] 133 mmol/L Low 136-145 [facility] Comment on above: Performed By: #### C BC1 #### [facility] [address] [place], [place] [address] CASE MANAGEMon 09-09-2019 CASE MANAGEM HNO ID: [id number] Author: Christina Perez Service: Care Management Author [...] 09, 2019 TIME: 11:40 AM PAGER/CONTACT #: [phone] [facility] CASE MANAGEM HNO ID: [id number] Author: Tami SantiagoRn) YUIR Patricio Service: Care Management Author Type: Registered Nurse Type: Care Mgt Progress Note Filed: 09/09/2019 9:15 AM Note Text: CARE MANAGEMENT PROGRESS NOTE SERVICE DATE: 09/09/2019 SERVICE TIME: 9:14 AM LOS: 19 days Chart reviewed. Precert pending for [facility] rehab. Pt will need cot for transport at d/c. Will follow. SIGNATURE: Tami Patricio RN PATIENT NAME: Elizabeth Modi DATE: September 09, 2019 TIME: 9:14 AM PAGER/CONTACT #: [phone] [facility] CONSULT PROGon 09-09-2019 CONSULT PROG HNO ID: [id number] Author: Doris Eden Service: Endocrinology Author Type: Physician Type: Consult Progress Note Filed: 09/09/2019 8:25 AM Note Text: ENDOCRINOLOGY CONSULT PROGRESS NOTE SERVICE DATE: 09/09/2019 SERVICE TIME: 8:00 AM Subjective INTERVAL HPI: Pt followed for diabetes mellitus type 2 with complications. Tr from [facility]; adm for right foot infection and gangrene; [...] RRR Abdomen soft, no masses Extremities: has dressing/him specialist on R leg stump; dressing on left [...] 2019 TIME: 8:25 AM PAGER: [phone] Normal [facility] Hemogramon 09-09-2019 Erythrocyte distribution width (RBC) [Ratio] 15.9 % High 11.6-14.4 [facility] Comment on above: Performed By: #### P 8 #### [address] [address] Hematocrit (Bld) [Volume fraction] 27.5 % Low 40.1-51.0 [facility] Comment on above: Performed By: #### P 8 #### [address] [address] Hemoglobin (Bld) [Mass/Vol] 8.8 g/dL Low 13.7-17.5 [facility] Comment on above: Performed By: #### P 8 #### [address] [address] MCH (RBC) [Entitic mass] 29.2 pg Normal 25.7-32.2 [facility] Comment on above: Performed By: #### P 8 #### [address] [address] MCHC (RBC) [Mass/Vol] 32.0 % Low 32.3-36.5 [facility] Comment on above: Performed By: #### P 8 #### [facility] [address] [place] [address] MCV (RBC) [Entitic vol] 91.4 fL Normal 83.2-95.[address] [facility] Comment on above: Performed By: #### P 8 #### [facility] [address] [place] [address] Platelet mean volume (Bld) [Entitic vol] 9.6 fL Normal 8.7-12.0 [facility] Comment on above: Performed By: #### P 8 #### [facility] [address] [place] [address] Platelets (Bld) [#/Vol] 505 thou/cmm High 141-365 [facility] Comment on above: Performed By: #### P 8 #### [place] [address] RBC (Bld) [#/Vol] 3.01 mil/cmm Low 4.63-6.08 [facility] Comment on above: Performed By: #### P 8 #### [facility] [address] [place] [address] RDW SD 51.8 fl High 36.1-45.8 [facility] Comment on above: Performed By: #### P 8 #### [facility] [address] [place] [address] WBC (Bld) [#/Vol] 12.29 thou/cmm High 4.23-9.07 [facility] Comment on above: Performed By: #### P 8 #### [facility] [address] [place] [address] MDRD GFRon 09-09-2019 GFR/1.73 sq M predicted among non-blacks MDRD (S/P/Bld) [Vol rate/Area] mL/min/{1.73_m2} Normal >60mL/min/1 .73m2 [facility] Comment on above: Result Comment: If t he patient is , multiply the result by 1.210. Performed By: #### C BC1 #### [facility] [address] [place], [place] [address] Magnesium Bloodon 09-09-2019 Magnesium [Mass/Vol] 1.3 mg/dL Low 1.6-2.6 [facility] Comment on above: Performed By: #### C _ANA #### [facility] [address] [place], [place] [address] PLAN OF CAREon 09-09-2019 PLAN OF CARE HNO ID: [id number] Author: Francine Pineda (Pharmacist) Service: Pharmacy Author Type: Pharmacist Type: Plan of Care Filed: 09/09/2019 11:32 AM Note Text: MEDICATION HISTORY AND MEDICATION RECONCILIATION Patient Name:Nelson Modi : 1940 Source of history:Pharmacy records: [phone] [id number] Medication Nonadherence Identified: No barriers noted- up to date on refills The above information represents the best possible medication history: Yes Reconciliation completed? Yes All BATCH ROOM TECHNICIAN medications addressed by LIP Additional comments: Mzirx-zz-Xoiwrchhy Medication List Adjustments: Medication Regimen Changes: None Medications Added: None Medications Removed: None Short-Term Medications: None Further Clarification Required: None Patient is a 30 day readmission: No Patient Interested in Bedside Delivery: No Time Spent Reviewing Patient's Medications: 40 minutes Allergies: ALLERGIES No Known Allergies Preferred Pharmacy: [facility]- [phone] [id number] Current BATCH ROOM TECHNICIAN Medications: Prior to Admission medications as [...] PHARMACIST September 09, 2019 11:24 AM Normal [facility] PROGRESSon 09-09-2019 PROGRESS HNO ID: [id number] Author: Tom Prescott DO Service: General Surgery [...] of pain while wearing knee immobilizer. Stump him specialist supplied by [employer]. Denies f/C. Moving the stump without to [...] Date 09/08/19 0700 - 09/09/19 0659 09/09/19 0700 - 09/10/19 0659 Shift 0504-7309 5506-4734 5779-2700 24 Hour Total 9988-0931 5070-0254 5292-3356 24 Hour Total INTAKE Shift Total OUTPUT [...] with luly in place, BKA with stump him specialist in place SKIN: Skin color, texture, turgor [...] lower extremity angiogram with partial occlusion R CARE INFORMATION ASSOCIATE, reconstitution at R below knee pop, 2-vessel runoff. Antibiotics stopped 08/23, remains non-septic. 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 09/02 PVR R calf 0.51, R low thigh 0.74. 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 ? Plan: -?DIET HEART HEALTHY? 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 Dressing changed re-applied stump him specialist today. Knee immobilize q4hr - Pain control - PT/OT?recs:?acute rehab - [facility] ppx - Mobilization as able, out of bed to chair?as tolerated - PAD - continue statin?and aspirin - Dispo planning: awaiting precert to [facility] Rehab Discuss plan with Dr. Devin Prescott DO, URSZULA PGY-1 General Surgery Resident 09/09/2019 9:02 AM Pager below: Vascular AND Thoracic Surgery Service Pager: For questions or concerns Mon-Mon 6a-5p please page [phone]. After 5pm and on Weekends and Holidays, please page [phone] if in ICU or [phone] if on RNF. Normal [facility] Phosphorus Bloodon 0 Phosphate [Mass/Vol] 3.1 mg/dL Normal 2.5-4.9 [facility] Comment on above: Performed By: #### C BC1 #### [place] [id number] THERAPY NTon 09-09-2019 THERAPY NT HNO ID: [id number] Author: Ramón ([place]) Poppy Service: Physical Therapy Author Type: Box Icer Type: Therapy (PT/OT/Speech/Resp) Filed: 09/09/2019 11:36 AM Note Text: Attestation signed by Tori SantiagoPtSmitha Graham at 09/09/2019 4:16 PM I reviewed and agree with the documentation corresponding to this therapy visit. SIGNATURE: Tori Graham, PT DATE: September 09, 2019 TIME: 4:16 PM Physical Therapy Treatment SERVICE DATE: 09/09/2019 SERVICE TIME: 1053 to 1119 ROOM: IH-1035-0864-01 Recommended Discharge Disposition: Acute Rehab Recommended Discharge [...] l;Muscle Weakness (generalized) Interventions Provided: Therapeutic Exercise (92556);Therapeutic Activity (30899) Therapeutic Exercise (60518) Treatment Minutes: 14 1 unit Skilled Intervention(s): [...] change of knee flexion contracture. 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 Performed By: #### P 8 #### [facility] [address] [place], [place] [address] Anion gap [Moles/Vol] 11 mmol/L Normal 8-16 [facility] Comment on above: Performed By: #### P 8 #### [facility] [address] [place], [place] [address] Calcium [Mass/Vol] 8.7 mg/dL Normal 8.5-10.1 [facility] Comment on above: Performed By: #### P 8 #### [facility] [address] [place], [place] [address] CO2 [Moles/Vol] 24 mmol/L Normal 21-32 [facility] Comment on above: Performed By: #### P 8 #### [facility] [address] [place], [place] [address] Glucose [Mass/Vol] 132 mg/dL High 70-99 [facility] Comment on above: Performed By: #### P 8 #### [facility] [address] [place], [place] [address] Urea nitrogen [Mass/Vol] 17 mg/dL Normal 7-18 [facility] Comment on above: Performed By: #### P 8 #### [facility] [address] [place], [place] [address] Chloride [Moles/Vol] 102 mmol/L Normal 98-107 [facility] Comment on above: Performed By: #### P 8 #### [facility] [address] [place], [place] [address] Potassium [Moles/Vol] 3.9 mmol/L Normal 3.5-5.1 [facility] Comment on above: Performed By: #### P 8 #### [facility] [address] [place], [place] [address] Sodium [Moles/Vol] 133 mmol/L Low 136-145 [facility] Comment on above: Performed By: #### P 8 #### [facility] [address] [place], [place] [address] CONSULT PROGon 09-08-2019 CONSULT PROG HNO ID: [id number] Author: Hermila Gallegos Service: Endocrinology Author Type: Physician Type: Consult Progress Note Filed: 09/08/2019 1:57 PM Note Text: ENDOCRINOLOGY CONSULT PROGRESS NOTE SERVICE DATE: 09/08/2019 SERVICE TIME: 10:20 AM Subjective INTERVAL HPI: Pt followed for diabetes mellitus type 2 with complications. Tr from [place]; adm for right foot infection and gangrene; [...] 2019 TIME: 1:57 PM PAGER: [phone] Normal [facility] Hemogramon 09-08-2019 Erythrocyte distribution width (RBC) [Ratio] 15.8 % High 11.6-14.4 [facility] Comment on above: Performed By: #### P 8 #### [facility] [address] [place], [place] [address] Hematocrit (Bld) [Volume fraction] 27.0 % Low 40.1-51.0 [facility] Comment on above: Performed By: #### P 8 #### [facility] [address] [place], [place] [address] Hemoglobin (Bld) [Mass/Vol] 8.2 g/dL Low 13.7-17.5 [facility] Comment on above: Performed By: #### P 8 #### [facility] [address] [place], [place] [address] MCH (RBC) [Entitic mass] 27.8 pg Normal 25.7-32.2 [facility] Comment on above: Performed By: #### P 8 #### [facility] [address] [place], [place] [address] MCHC (RBC) [Mass/Vol] 30.4 % Low 32.3-36.5 [facility] Comment on above: Performed By: #### P 8 #### [facility] [address] [place], [place] [address] MCV (RBC) [Entitic vol] 91.5 fL Normal 83.2-95.[address] [facility] Comment on above: Performed By: #### P 8 #### [facility] [address] [place], [place] [address] Platelet mean volume (Bld) [Entitic vol] 10.2 fL Normal 8.7-12.0 [facility] Comment on above: Performed By: #### P 8 #### [facility] [address] [place], [place] [address] Platelets (Bld) [#/Vol] 444 thou/cmm High 141-365 [facility] Comment on above: Performed By: #### P 8 #### [facility] [address] [place], [place] [address] RBC (Bld) [#/Vol] 2.95 mil/cmm Low 4.63-6.08 [facility] Comment on above: Performed By: #### P 8 #### [facility] [address] [place], [place] [address] RDW SD 51.5 fl High 36.1-45.8 [facility] Comment on above: Performed By: #### P 8 #### [facility] [address] [place], [place] [address] WBC (Bld) [#/Vol] 12.29 thou/cmm High 4.23-9.07 [facility] Comment on above: Performed By: #### P 8 #### [facility] [address] [place], [place] [address] Magnesium Bloodon 09-08-2019 Magnesium [Mass/Vol] 1.2 mg/dL Low 1.6-2.6 [facility] Comment on above: Performed By: #### C BC1 #### [facility] [address] [place], [place] [address] PROGRESSon 09-08-2019 PROGRESS HNO ID: [id number] Author: Jennifer Crooks Service: Vascular Surgery Author [...] pain moderately well controlled this am. Stump him specialist applied by [employer] yesterday. Knee immobilizer in place. Tolerating diet [...] 0659 09/08/19 07 - 09/09/19 0659 Shift 7382-9506 1035-1607 7965-6832 24 Hour Total 9134-5807 6253-8990 6111-2427 24 Hour Total INTAKE Shift Total OUTPUT Urine 628 698 1745 Void (ml) 054 482 8321 # of BMs Stool Incontinence 1 x 1 x Number of BMs 1 x 1 x Shift Total 878 644 4370 Weight (kg) 90 90 90.4 90.4 90.4 [...] lower extremity angiogram with partial occlusion R CARE INFORMATION ASSOCIATE, reconstitution at R below knee pop, 2-vessel [...] edema, no bleeding. Will change dressing/re-apply stump him specialist today. - Pain control - PT/OT?recs:?acute rehab - [facility] ppx - Mobilization as able, out of bed to chair?as tolerated - PAD - continue statin?and aspirin - Dispo planning: awaiting precert to [facility] Re[facility] Addendum: (10:34 AM) Patient seen bedside with attending. Knee immobilizer/and dressing/stump him specialist taken down. Surgical incision appears healthy with minimal drainage. No erythema or bleeding. [place] intact. Dressing/stump him specialist reapplied. Will continue knee immobilizer q4H and while OOB. ? Vascular AND Thoracic Surgery Service Pager: For questions or concerns Mon-Fri 6a-5p please page [phone]. After 5pm and on Weekends and Holidays, please page [phone] if in ICU or [phone] if on RNF. SIGNATURE: Jennifer Crooks MD PATIENT NAME: Elizabeth Modi DATE: September 08, 2019 TIME: 6:45 AM Pager: Normal [facility] Phosphorus Bloodon 0 Phosphate [Mass/Vol] 3.0 mg/dL Normal 2.5-4.9 [facility] Comment on above: Performed By: #### C BC1 #### [facility] [address] [place], [place] [address] Basic Panelon 09-07-2019 Creatinine [Mass/Vol] 0.84 mg/dL Normal 0.67-1.17 [facility] Comment on above: Result Comment: Use of this assay is not recommended for patients undergoing treatment with phenindione, due to the potential for falsely depressed results. Performed By: #### F ERR #### [address] [address] Anion gap [Moles/Vol] 11 mmol/L Normal 8-16 [facility] Comment on above: Performed By: #### F ERR #### [facility] [address] [place], [place] [address] CO2 [Moles/Vol] 25 mmol/L Normal 21-32 [facility] Comment on above: Performed By: #### F ERR #### [facility] [address] [place], [place] [address] Glucose [Mass/Vol] 147 mg/dL High 70-99 [facility] Comment on above: Performed By: #### F ERR #### [facility] [address] [place], [place] [address] Urea nitrogen [Mass/Vol] 14 mg/dL Normal 7-18 [facility] Comment on above: Performed By: #### F ERR #### [facility] [address] [place], [place] [address] Calcium [Mass/Vol] 9.5 mg/dL Normal 8.5-10.1 [facility] Comment on above: Performed By: #### F ERR #### [facility] [address] [place], [place] [address] Chloride [Moles/Vol] 101 mmol/L Normal 98-107 [facility] Comment on above: Performed By: #### F ERR #### [facility] [address] [place], [place] [address] Potassium [Moles/Vol] 4.2 mmol/L Normal 3.5-5.1 [facility] Comment on above: Performed By: #### F ERR #### [facility] [address] [place], [place] [address] Sodium [Moles/Vol] 133 mmol/L Low 136-145 [facility] Comment on above: Performed By: #### F ERR #### [facility] [address] [place], [place] [address] CONSULT PROGon 09-07-2019 CONSULT PROG HNO ID: [id number] Author: Hermila Gallegos Service: Endocrinology Author Type: Physician Type: Consult Progress Note Filed: 09/07/2019 11:25 AM Note Text: ENDOCRINOLOGY CONSULT PROGRESS NOTE SERVICE DATE: 09/07/2019 SERVICE TIME: 11:22 AM Subjective INTERVAL HPI: Pt followed for diabetes mellitus type 2 with complications. Tr from [place]; adm for right foot infection and gangrene; [...] 2019 TIME: 11:24 AM PAGER: [phone] Normal [facility] Hemogramon 09-07-2019 Erythrocyte distribution width (RBC) [Ratio] 16.1 % High 11.6-14.4 [facility] Comment on above: Performed By: #### M AG #### [place] [address] Hematocrit (Bld) [Volume fraction] 31.4 % Low 40.1-51.0 [facility] Comment on above: Performed By: #### M AG #### [place] [address] Hemoglobin (Bld) [Mass/Vol] 9.8 g/dL Low 13.7-17.5 [facility] Comment on above: Performed By: #### M AG #### [place] [address] MCH (RBC) [Entitic mass] 28.7 pg Normal 25.7-32.2 [facility] Comment on above: Performed By: #### M AG #### [place] [address] MCHC (RBC) [Mass/Vol] 31.2 % Low 32.3-36.5 [facility] Comment on above: Performed By: #### M AG #### [place] [address] MCV (RBC) [Entitic vol] 92.1 fL Normal 83.2-95.[address] [facility] Comment on above: Performed By: #### M AG #### [place] [address] Platelet mean volume (Bld) [Entitic vol] 9.6 fL Normal 8.7-12.0 [facility] Comment on above: Performed By: #### M AG #### [place] [id number] Platelets (Bld) [#/Vol] 519 thou/cmm High 141-365 [facility] Comment on above: Performed By: #### M AG #### [facility] [address] [place] [address] RBC (Bld) [#/Vol] 3.41 mil/cmm Low 4.63-6.08 [facility] Comment on above: Performed By: #### M AG #### [facility] [address] [place] [address] RDW SD 53.3 fl High 36.1-45.8 [facility] Comment on above: Performed By: #### M AG #### [facility] [address] [place] [address] WBC (Bld) [#/Vol] 12.27 thou/cmm High 4.23-9.07 [facility] Comment on above: Performed By: #### M AG #### [facility] [address] [place] [address] Magnesium Bloodon 09-07-2019 Magnesium [Mass/Vol] 1.3 mg/dL Low 1.6-2.6 [facility] Comment on above: Performed By: #### F ERR #### [facility] [address] [place] [address] OPERATIVE NOon 09-07-2019 OPERATIVE NO HNO ID: [id number] Author: Ryan Allen Service: ? Author Type: Physician Type: Operative Report Filed: 09/09/2019 8:10 AM Note Text: [facility] - Operative Report ELIZABETH MODI : 1940 AGE: 79. SEX: M PATIENT TYPE: I HOSP SV: KEENAN LOCATION: [facility] ATTENDING PHYSICIAN: JOVANNY PARMAR CSN NUMBER: [id number] DATE OF SURGERY/PROCEDURE: 09/05/2019 INCISION/PROCEDURE START TIME: 12:28 PM INCISION CLOSE/PROCEDURE END TIME: 2:14 PM PREOPERATIVE DIAGNOSIS: Gangrenous right lower extremity, status post guillotine amputation below the knee. POSTOPERATIVE DIAGNOSIS: Gangrenous right lower extremity, status post guillotine amputation below the knee. SURGEON: Ryan Allen MD, FACS RADIOLOGY SERVICES MANAGER: Tom Prescott DO, resident, also assistant accounting manager is Irvin Walker. SURGERY/PROCEDURE: Revision of [...] tuberosity location and also used the oscillating [place] saw to divide the fibula slightly proximal [...] satisfactory postop condition. Ryan Allen MD, FACS RGN:[id number] Normal [facility] PROGRESSon 09-07-2019 PROGRESS HNO ID: [id number] Author: Jennifer Crooks Service: Vascular Surgery Author [...] 09/06/196[address] - 09/07/1965809/07/196[address] - 09/08/19 0659 Shift 5484-3072 9091-8650 9651-3467 24 Hour Total 7995-5693 3931-9442 4469-0172 24 Hour Total INTAKE Shift Total OUTPUT Urine 550 145 710 7368 Void (ml) 550 631 950 0197 Shift Total 550 617 151 7415 Weight (kg) 89.3 89.3 90 90 90 [...] lower extremity angiogram with partial occlusion R CARE INFORMATION ASSOCIATE, reconstitution at R below knee pop, 2-vessel [...] edema, no bleeding Nori consult for stump him specialist 09/06 - Pain control - PT/OT recs: acute rehab - [facility] ppx - Mobilization as able, out of bed to chair?as tolerated - PAD - continue statin?and aspirin - [facility] Service Pager: For questions or concerns Mon-Mon 6a-5p please page [phone]. After 5pm and on Weekends and Holidays, please page [phone] if in ICU or [phone] if on RNF. SIGNATURE: Jennifer Crooks MD PATIENT NAME: Elizabeth Modi DATE: September 07, 2019 TIME: 6:39 AM Pager: Normal [facility] Phosphorus Bloodon 0 Phosphate [Mass/Vol] 3.0 mg/dL Normal 2.5-4.9 [facility] Comment on above: Performed By: #### C BC1 #### [facility] [address] [place], [place] [address] Basic Panelon 09-06-2019 Creatinine [Mass/Vol] 0.70 mg/dL Normal 0.67-1.17 [facility] Comment on above: Result Comment: Use of this assay is not recommended for patients undergoing treatment with phenindione, due to the potential for falsely depressed results. Performed By: #### C _ANA #### [address] [address] Anion gap [Moles/Vol] 10 mmol/L Normal 8-16 [facility] Comment on above: Performed By: #### C _ANA #### [place] [address] CO2 [Moles/Vol] 24 mmol/L Normal 21-32 [facility] Comment on above: Performed By: #### C _ANA #### [address] [address] Urea nitrogen [Mass/Vol] 14 mg/dL Normal 7-18 [facility] Comment on above: Performed By: #### C _ANA #### [address] [address] Calcium [Mass/Vol] 8.1 mg/dL Low 8.5-10.1 [facility] Comment on above: Performed By: #### C _ANA #### [facility] [address] [place], [place] [address] Glucose [Mass/Vol] 157 mg/dL High 70-99 [facility] Comment on above: Performed By: #### C _ANA #### [address] [address] Chloride [Moles/Vol] 106 mmol/L Normal 98-107 [facility] Comment on above: Performed By: #### C _ANA #### [facility] [address] [place], [place] [address] Potassium [Moles/Vol] 4.4 mmol/L Normal 3.5-5.1 [facility] Comment on above: Performed By: #### C _ANA #### [facility] [address] [place], [place] [address] Sodium [Moles/Vol] 136 mmol/L Normal 136-145 [facility] Comment on above: Performed By: #### C _ANA #### [facility] [address] [place], [place] [address] CASE MGT INIT ASSESon 2019 CASE MGT INIT ASS HNO ID: [id number] Author: Tami SantiagoRn) YURI Patricio Service: Care Management Author Type: Registered Nurse Type: Care Mgt Initial Assessment Filed: 09/06/2019 2:24 PM Note Text: CARE MANAGEMENT PROGRESS NOTE SERVICE DATE: 09/06/2019 SERVICE TIME: 2:23 PM LOS: 16 days Chart reviewed. Plan for [facility] Re[facility] - precert pending. Pt will need cot for transport. Will follow. SIGNATURE: Tami Patricio RN PATIENT NAME: Elizabeth Modi DATE: September 06, 2019 TIME: 2:22 PM PAGER/CONTACT #: [phone] [facility] CONSULT PROGon 09-06-2019 CONSULT PROG HNO ID: [id number] Author: Luke Briones (Gurwinder) Sailaja Service: Wound/Ostomy Author Type: Nurse Practitioner Type: Consult Progress Note Filed: 09/06/2019 9:52 AM Note Text: WOUND CARE PROGRESS ADMISSION SPECIALIST NOTE SERVICE DATE: 09/06/2019 SERVICE TIME: 09:02 [...] who is seen today with Zee Alba, Wound/forming process line worker, and presented to hospital with complaints of [...] left heel and seat cushion. Will reorder [id number] mattress as patient is still on regular mattress and turn and reposition every 2 hours or more often. A photo was taken of the patient's wound(s). Photos can be found under the Get Images tab on [employer]. Photos are uploaded by the wound rn coronary care unit and may not be immediately available for viewing. Contact the wound and ostomy care department with questions. SIGNATURE: Luke Menard APRN.OPERATIONS WELDER,CWOCN PATIENT NAME: Elizabeth Modi DATE: September 06, 2019 TIME: 9:45 AM CONTACT#: [id number] [facility] CONSULT PROG HNO ID: [id number] Author: Doris Eden Service: Endocrinology Author Type: Physician Type: Consult Progress Note Filed: 09/06/2019 7:59 AM Note Text: ENDOCRINOLOGY CONSULT PROGRESS NOTE SERVICE DATE: 09/06/2019 SERVICE TIME: 7:45 AM Subjective INTERVAL HPI: Pt followed for diabetes mellitus type 2 with complications. Tr from [place]; adm for right foot infection and gangrene; [...] 2019 TIME: 7:59 AM PAGER: [phone] Normal [facility] Hemogramon 09-06-2019 Erythrocyte distribution width (RBC) [Ratio] 16.2 % High 11.6-14.4 [facility] Comment on above: Performed By: #### F ERR #### [place] [address] Hematocrit (Bld) [Volume fraction] 26.4 % Low 40.1-51.0 [facility] Comment on above: Performed By: #### F ERR #### [place] [address] Hemoglobin (Bld) [Mass/Vol] 8.2 g/dL Low 13.7-17.5 [facility] Comment on above: Performed By: #### F ERR #### [place] [address] MCH (RBC) [Entitic mass] 28.5 pg Normal 25.7-32.2 [facility] Comment on above: Performed By: #### F ERR #### [place] [address] MCHC (RBC) [Mass/Vol] 31.1 % Low 32.3-36.5 [facility] Comment on above: Performed By: #### F ERR #### [place] [address] MCV (RBC) [Entitic vol] 91.7 fL Normal 83.2-95.[address] [facility] Comment on above: Performed By: #### F ERR #### [place] [address] Platelet mean volume (Bld) [Entitic vol] 9.7 fL Normal 8.7-12.0 [facility] Comment on above: Performed By: #### F ERR #### [facility] [address] [place] [address] Platelets (Bld) [#/Vol] 410 thou/cmm High 141-365 [facility] Comment on above: Performed By: #### F ERR #### [facility] [address] [place] [address] RBC (Bld) [#/Vol] 2.88 mil/cmm Low 4.63-6.08 [facility] Comment on above: Performed By: #### F ERR #### [facility] [address] [place] [address] RDW SD 53.9 fl High 36.1-45.8 [facility] Comment on above: Performed By: #### F ERR #### [facility] [address] [place] [address] WBC (Bld) [#/Vol] 10.15 thou/cmm High 4.23-9.07 [facility] Comment on above: Performed By: #### F ERR #### [facility] [address] [place] [address] Magnesium Bloodon 09-06-2019 Magnesium [Mass/Vol] 1.5 mg/dL Low 1.6-2.6 [facility] Comment on above: Performed By: #### C _ANA #### [place] [address] NUTRITIONon 09-06-2019 NUTRITION HNO ID: [id number] Author: Tanja Zimmerman) ALEIDA Byrne Service: Nutrition [...] condition;Depletion of fat/muscle stores Estimated kilocalorie needs: 7763-1786 Calorie Calculation Method: 30-35 kcals/kg Estimated protein [...] September 06, 2019 TIME: 9:53 AM PAGER: [phone] [facility] PROGRESSon 09-06-2019 PROGRESS HNO ID: [id number] Author: Tom Prescott DO Service: General Surgery [...] Hopefully takedown dressing tomorrow and evaluate stump. [employer] Nacuii to visit for stump him specialist hopefully tomorrow as well Signature: Ryan Allen MD Date: 09/06/2019 Time: 2:39 PM Vascular Surgery Progress Note SERVICE DATE: 09/06/2019 Vascular AND Thoracic Surgery Service Pager: For questions or concerns Mon-Fri 6a-5p please page [phone]. After 5pm and on Weekends and Holidays, [...] Therapy: Room Air IANDO: Date 09/05/19699 - 09/06/1958 09/06/196[address] - 09/07/19 0659 Shift 8946-9977 9615-5221 2133-6504 24 Hour Total 6747-0602 9993-1185 4323-1195 24 Hour Total INTAKE PO 240 240 480 PO 240 240 480 IV 750 100 850 OR Crystalloid intake (mL) 750 750 Volume (mL) (lactated ringers infusion) 100 100 Shift Total 750 050 592 8862 OUTPUT Urine 150 1100 1300 2550 Void [...] lower extremity angiogram with partial occlusion R CARE INFORMATION ASSOCIATE, reconstitution at R below knee pop, 2-vessel runoff. Antibiotics stopped 08/23, remains non-septic. 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 09/02 PVR R calf 0.51, R low thigh 0.74. 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 Normal [facility] Phosphorus Bloodon 0 Phosphate [Mass/Vol] 2.9 mg/dL Normal 2.5-4.9 [facility] Comment on above: Performed By: #### M AG #### [place] [address] THERAPY NTon 09-06-2019 THERAPY NT HNO ID: [id number] Author: Briana Babb/Vickie Watson Service: Occupational Therapy Author Type: Occupational Therapist Type: Therapy (PT/OT/Speech/Resp) Filed: 09/06/2019 3:43 PM Note Text: Occupational Therapy Treatment SERVICE DATE: 09/06/2019 SERVICE TIME: 1519 to 1533 ROOM: [place] [address] Recommended Discharge Disposition: Acute Rehab Recommended Discharge [...] transfers. Continue to recommend Acute Rehab at d/ for intensive therapies. 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 SIGNATURE: Briana Watson OTR/Serene PATIENT NAME: Elizabeth Modi DATE: September 06, 2019 TIME: 3:38 PM Normal [facility] THERAPY NT HNO ID: [id number] Author: Marilyn (Pt) Mark Service: Physical Therapy Author Type: Physical Therapist Type: Therapy (PT/OT/Speech/Resp) Filed: 09/06/2019 12:03 PM Note Text: Physical Therapy Treatment SERVICE DATE: 09/06/2019 SERVICE TIME: 1109 to 1119 ROOM: [place] [address] Recommended Discharge Disposition: Acute Rehab Recommended Discharge [...] l;Muscle Weakness (generalized) Interventions Provided: Therapeutic Activity (72268) Therapeutic Activity (91362) Treatment Minutes: 10 1 unit Skilled Intervention(s): [...] Environment Patient Lives With: Self/Alone 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 Entry To Home: Stairs;With Rail Number [...] September 06, 2019 TIME: 11:55 AM Normal [facility] ABO/Rh Confirmationon 2019 ABO group Nom (Bld) A Normal [facility] Comment on above: Performed By: #### G LMET #### [place] [address] RH Type Positive Normal [facility] Comment on above: Performed By: #### G LMET #### [facility] [address] [place] [id number] ANES [place] 09-05-2019 ANES POST HNO ID: [id number] Author: Sj Huizar Service: Anesthesiology Author Type: [...] 2019 TIME: 5:54 PM PAGER/CONTACT #: [phone] Normal [facility] ANES PREOPon 09-05-2019 ANES PREOP HNO ID: [id number] Author: Al Pugh Service: Anesthesiology Author Type: [...] September 05, 2019 TIME: 11:39 AM CSN: [id number] Normal [facility] BRIEF OP NOTon 09-05-2019 BRIEF OP NOT HNO ID: [id number] Author: Tom Prescott DO Service: General Surgery [...] BRIEF OPERATIVE / PROCEDURE NOTE LOG ID: [id number] SURGERY/PROCEDURE DATE: 09/05/2019 INCISION/PROCEDURE START TIME: 12:28 PM INCISION CLOSE/PROCEDURE END TIME: 2:14 PM SURGEON(S)/PROCEDURALI ST(S) AND RADIOLOGY SERVICES MANAGER(S): Surgeon(s) and Role: * Ryan Allen - Primary * Tom Prescott DO - Resident - Assisting Child Care Teacher: Irvin Walker SA SURGERY/PROCEDURE(S): Revision of prior [...] ICU or 2174 if on RNF. Normal [facility] Basic Panelon 09-05-2019 Creatinine [Mass/Vol] 0.73 mg/dL Normal 0.67-1.17 [facility] Comment on above: Result Comment: Use of this assay is not recommended for patients undergoing treatment with phenindione, due to the potential for falsely depressed results. Performed By: #### F ERR #### [address] [address] Anion gap [Moles/Vol] 9 mmol/L Normal 8-16 [facility] Comment on above: Performed By: #### F ERR #### [address] [address] Calcium [Mass/Vol] 7.8 mg/dL Low 8.5-10.1 [facility] Comment on above: Performed By: #### F ERR #### [address] [address] CO2 [Moles/Vol] 26 mmol/L Normal 21-32 [facility] Comment on above: Performed By: #### F ERR #### [address] [address] Glucose [Mass/Vol] 137 mg/dL High 70-99 [facility] Comment on above: Performed By: #### F ERR #### [facility] [address] [place], [place] [address] Urea nitrogen [Mass/Vol] 17 mg/dL Normal 7-18 [facility] Comment on above: Performed By: #### F ERR #### [address] [address] Chloride [Moles/Vol] 105 mmol/L Normal 98-107 [facility] Comment on above: Performed By: #### F ERR #### [address] [place], [place] [address] Potassium [Moles/Vol] 4.1 mmol/L Normal 3.5-5.1 [facility] Comment on above: Performed By: #### F ERR #### [facility] [address] [place], [place] [address] Sodium [Moles/Vol] 136 mmol/L Normal 136-145 [facility] Comment on above: Performed By: #### F ERR #### [facility] [address] [place], [place] [address] CONSULT PROGon 09-05-2019 CONSULT PROG HNO ID: [id number] Author: Doris Eden Service: Endocrinology Author Type: Physician Type: Consult Progress Note Filed: 09/05/2019 8:01 AM Note Text: ENDOCRINOLOGY CONSULT PROGRESS NOTE SERVICE DATE: 09/05/2019 SERVICE TIME: 7:50 AM Subjective INTERVAL HPI: Pt followed for diabetes mellitus type 2 with complications. Tr from [place]; adm for right foot infection and gangrene; [...] 2019 TIME: 8:01 AM PAGER: [phone] Normal [facility] Hemogramon 09-05-2019 Erythrocyte distribution width (RBC) [Ratio] 16.0 % High 11.6-14.4 [facility] Comment on above: Performed By: #### G LMET #### [facility] [address] [place], [place] [address] Hematocrit (Bld) [Volume fraction] 25.4 % Low 40.1-51.0 [facility] Comment on above: Performed By: #### G LMET #### [facility] [address] [place], [place] [address] Hemoglobin (Bld) [Mass/Vol] 8.1 g/dL Low 13.7-17.5 [facility] Comment on above: Performed By: #### G LMET #### [facility] [address] [place] [address] MCH (RBC) [Entitic mass] 29.1 pg Normal 25.7-32.2 [facility] Comment on above: Performed By: #### G LMET #### [facility] [address] [place] [address] MCHC (RBC) [Mass/Vol] 31.9 % Low 32.3-36.5 [facility] Comment on above: Performed By: #### G LMET #### [facility] [address] [place] [address] MCV (RBC) [Entitic vol] 91.4 fL Normal 83.2-95.[address] [facility] Comment on above: Performed By: #### G LMET #### [facility] [address] [place] [address] Platelet mean volume (Bld) [Entitic vol] 9.7 fL Normal 8.7-12.0 [facility] Comment on above: Performed By: #### G LMET #### [facility] [address] [place], [place] [address] Platelets (Bld) [#/Vol] 387 thou/cmm High 141-365 [facility] Comment on above: Performed By: #### G LMET #### [facility] [address] [place], [place] [address] RBC (Bld) [#/Vol] 2.78 mil/cmm Low 4.63-6.08 [facility] Comment on above: Performed By: #### G LMET #### [facility] [address] [place], [place] [address] RDW SD 52.4 fl High 36.1-45.8 [facility] Comment on above: Performed By: #### G LMET #### [facility] [address] [place], [place] [address] WBC (Bld) [#/Vol] 9.06 thou/cmm Normal 4.23-9.07 [facility] Comment on above: Performed By: #### G LMET #### [facility] [address] [place], [place] [address] Magnesium Bloodon 09-05-2019 Magnesium [Mass/Vol] 1.3 mg/dL Low 1.6-2.6 [facility] Comment on above: Performed By: #### C _ANA #### [facility] [address] [place], [place] [address] PROGRESSon 09-05-2019 PROGRESS HNO ID: [id number] Author: Francine Roberts Service: Vascular Surgery Author [...] questions or concerns Mon-Fri 6a-5p please page [phone]. After 5pm and on Weekends and Holidays, [...] 0659 09/05/19 07 - 09/06/19 0659 Shift 9646-1362 7771-5808 4537-8135 24 Hour Total 1470-6568 0215-2382 6084-0390 24 Hour Total INTAKE Shift Total OUTPUT Urine 650 908 273 2429 Void (ml) 650 894 595 7349 Shift Total 650 025 241 0281 Weight (kg) 89.4 89.4 89.4 89.4 89.4 [...] lower extremity angiogram with partial occlusion R CARE INFORMATION ASSOCIATE, reconstitution at R below knee pop, 2-vessel [...] ICU or 2174 if on RNF. Normal [facility] Phosphorus Bloodon 0 Phosphate [Mass/Vol] 2.9 mg/dL Normal 2.5-4.9 [facility] Comment on above: Performed By: #### M AG #### [facility] [place] [address] Surgical Tissue Examon 09-04 Surgical Tissue Exam Test performed at [place] [address] NAME: ELIZABETH MODI REQUESTING: JOVANNY PARMAR MD [...] mild calcific atherosclerosis. Thrombi are not present. Resident Care Associate sections are submitted as follows: 1 - soft tissue line of resection (black ink); 2-3 - resources representative sections of red-pink ischemic process at distal aspect; 4 - resources representative sections of vessels; 5 - resources representative section of bone following a period of decalcification. KVB:cindi ARENAS M.D. (Electronic signature on file) Signed out: 09/09/2019 14:52 PRINTED: 09/09/2019 Page 1 of 1 Normal [facility] Comment on above: Performed By: #### M AG #### [place] [address] Type and Screenon 09-05-2019 ABO group Nom (Bld) A Normal [facility] Comment on above: Performed By: #### M AG #### [place] [address] Comment See Below Normal [facility] Comment on above: Result Comment: Scre en &/or Xmatch expires in 3 days at 12 midnight. Redraw patient at that time. Performed By: #### M AG #### [facility] [address] [place], [place] [address] RH Type Positive Normal [facility] Comment on above: Performed By: #### M AG #### [facility] [address] [place] [address] Basic Panelon 09-04-2019 Creatinine [Mass/Vol] 0.87 mg/dL Normal 0.67-1.17 [facility] Comment on above: Result Comment: Use of this assay is not recommended for patients undergoing treatment with phenindione, due to the potential for falsely depressed results. Performed By: #### F ERR #### [facility] [address] [place] [address] Anion gap [Moles/Vol] 8 mmol/L Normal 8-16 [facility] Comment on above: Performed By: #### F ERR #### [facility] [address] [place], [place] [address] Calcium [Mass/Vol] 8.0 mg/dL Low 8.5-10.1 [facility] Comment on above: Performed By: #### F ERR #### [facility] [address] [place], [place] [address] CO2 [Moles/Vol] 25 mmol/L Normal 21-32 [facility] Comment on above: Performed By: #### F ERR #### [facility] [address] [place], [place] [address] Glucose [Mass/Vol] 113 mg/dL High 70-99 [facility] Comment on above: Performed By: #### F ERR #### [facility] [address] [place], [place] [address] Urea nitrogen [Mass/Vol] 23 mg/dL High 7-18 [facility] Comment on above: Performed By: #### F ERR #### [facility] [address] [place], [place] [address] Chloride [Moles/Vol] 110 mmol/L High 98-107 [facility] Comment on above: Performed By: #### F ERR #### [facility] [address] [place], [place] [address] Potassium [Moles/Vol] 4.0 mmol/L Normal 3.5-5.1 [facility] Comment on above: Performed By: #### F ERR #### [facility] [address] [place], [place] [address] Sodium [Moles/Vol] 139 mmol/L Normal 136-145 [facility] Comment on above: Performed By: #### F ERR #### [facility] [address] [place], [place] [address] CASE MANAGEMon 09-04-2019 CASE MANAGEM HNO ID: [id number] Author: Tami (Rn) YURI Patricio Service: Care Management Author Type: Registered Nurse Type: Care Mgt Progress Note Filed: 09/04/2019 9:41 AM Note Text: CARE MANAGEMENT PROGRESS NOTE SERVICE DATE: 09/04/2019 SERVICE TIME: 9:36 AM LOS: 14 days Chart reviewed. 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 Plan for [facility] rehab at d/c. Pt will need auth when medically stable and likely cot transport. Will follow. SIGNATURE: Tami Patricio RN PATIENT NAME: Elizabeth Modi DATE: September 04, 2019 TIME: 9:36 AM PAGER/CONTACT #: [phone] Normal [facility] CONSULT PROGon 09-04-2019 CONSULT PROG HNO ID: [id number] Author: Doris Eden Service: Endocrinology Author Type: Physician Type: Consult Progress Note Filed: 09/04/2019 9:41 AM Note Text: ENDOCRINOLOGY CONSULT PROGRESS NOTE SERVICE DATE: 09/04/2019 SERVICE TIME: 9:20 AM Subjective INTERVAL HPI: Pt followed for diabetes mellitus type 2 with complications. Tr from [place]; adm for right foot infection and gangrene; [...] 2019 TIME: 9:41 AM PAGER: [phone] Normal [facility] Hemogramon 09-04-2019 Erythrocyte distribution width (RBC) [Ratio] 15.8 % High 11.6-14.4 [facility] Comment on above: Performed By: #### F ERR #### [place] [address] Hematocrit (Bld) [Volume fraction] 27.6 % Low 40.1-51.0 [facility] Comment on above: Performed By: #### F ERR #### [place] [address] Hemoglobin (Bld) [Mass/Vol] 8.3 g/dL Low 13.7-17.5 [facility] Comment on above: Performed By: #### F ERR #### [place] [address] MCH (RBC) [Entitic mass] 28.0 pg Normal 25.7-32.2 [facility] Comment on above: Performed By: #### F ERR #### [place] [address] MCHC (RBC) [Mass/Vol] 30.1 % Low 32.3-36.5 [facility] Comment on above: Performed By: #### F ERR #### [place] [address] MCV (RBC) [Entitic vol] 93.2 fL Normal 83.2-95.[address] [facility] Comment on above: Performed By: #### F ERR #### [place] [address] Platelet mean volume (Bld) [Entitic vol] 10.0 fL Normal 8.7-12.0 [facility] Comment on above: Performed By: #### F ERR #### [facility] [address] [place], [place] [address] Platelets (Bld) [#/Vol] 371 thou/cmm High 141-365 [facility] Comment on above: Performed By: #### F ERR #### [facility] [address] [place] [address] RBC (Bld) [#/Vol] 2.96 mil/cmm Low 4.63-6.08 [facility] Comment on above: Performed By: #### F ERR #### [facility] [address] [place] [address] RDW SD 51.6 fl High 36.1-45.8 [facility] Comment on above: Performed By: #### F ERR #### [facility] [address] [place] [address] WBC (Bld) [#/Vol] 9.95 thou/cmm High 4.23-9.07 [facility] Comment on above: Performed By: #### F ERR #### [facility] [address] [place] [address] Magnesium Bloodon 09-04-2019 Magnesium [Mass/Vol] 1.8 mg/dL Normal 1.6-2.6 [facility] Comment on above: Performed By: #### M AG #### [facility] [address] [place] [address] PROGRESSon 09-04-2019 PROGRESS HNO ID: [id number] Author: Francine Roberts Service: Vascular Surgery Author [...] questions or concerns Mon-Fri 6a-5p please page [phone]. After 5pm and on Weekends and Holidays, [...] Air IANDO: Date 09/03/196[address] - 09/04/1965809/04/19699 - 09/05/19 0659 Shift 9785-1666 7336-4423 9330-6714 24 Hour Total 4289-5399 3027-4117 0047-5761 24 Hour Total INTAKE IV 611 611 Volume (mL) (lactated ringers infusion) 511 511 Volume (mL) (magnesium sulfate in sterile water 4 g iv piggyback) 100 100 Shift Total 611 611 OUTPUT Urine 597 016 0197 Void (ml) 148 365 5829 Shift Total 131 195 8536 Weight (kg) 91.4 91.4 89.4 89.4 89.4 [...] lower extremity angiogram with partial occlusion R CARE INFORMATION ASSOCIATE, reconstitution at R below knee pop, 2-vessel [...] ICU or 2174 if on RNF. Normal [facility] Phosphorus Bloodon 0 Phosphate [Mass/Vol] 2.2 mg/dL Low 2.5-4.9 [facility] Comment on above: Performed By: #### C _ANA #### [facility] [address] [place] [address] THERAPY NTon 09-04-2019 THERAPY NT HNO ID: [id number] Author: Marilyn (Pt) Mark Service: Physical Therapy Author Type: Physical Therapist Type: Therapy (PT/OT/Speech/Resp) Filed: 09/04/2019 3:34 PM Note Text: PHYSICAL THERAPY MISSED VISIT SERVICE DATE: 09/04/2019 SERVICE TIME: 1532 to 1532 ROOM: [place] [address] Attempted Treatment. Patient not seen due to Declined. Patient reports he is extremely tired today and is having his procedure tomorrow. States he is not feeling up to it today despite encouragement. Educated patient that we will visit him after his procedure. SIGNATURE: Marilyn Flores PT PATIENT NAME: Elizabeth Modi DATE: September 04, 2019 TIME: 3:33 PM Normal [facility] ANES [place] 09-03-2019 ANES POST HNO ID: [id number] Author: Dwayne Kerns Service: Anesthesiology Author Type: [...] 02, 2019 TIME: 11:44 PM PAGER/CONTACT #: [phone] Normal [facility] Basic Panelon 09-03-2019 Creatinine [Mass/Vol] 0.90 mg/dL Normal 0.67-1.17 [facility] Comment on above: Result Comment: Use of this assay is not recommended for patients undergoing treatment with phenindione, due to the potential for falsely depressed results. Performed By: #### C BC1 #### [address] [address] Anion gap [Moles/Vol] 7 mmol/L Low 8-16 [facility] Comment on above: Performed By: #### C BC1 #### [address] [address] Calcium [Mass/Vol] 7.9 mg/dL Low 8.5-10.1 [facility] Comment on above: Performed By: #### C BC1 #### [address] [address] CO2 [Moles/Vol] 27 mmol/L Normal 21-32 [facility] Comment on above: Performed By: #### C BC1 #### [facility] [address] [place], [place] [address] Glucose [Mass/Vol] 135 mg/dL High 70-99 [facility] Comment on above: Performed By: #### C BC1 #### [facility] [address] [place], [place] [address] Urea nitrogen [Mass/Vol] 25 mg/dL High 7-18 [facility] Comment on above: Performed By: #### C BC1 #### [facility] [address] [place], [place] [address] Chloride [Moles/Vol] 106 mmol/L Normal 98-107 [facility] Comment on above: Performed By: #### C BC1 #### [facility] [address] [place], [place] [address] Potassium [Moles/Vol] 4.4 mmol/L Normal 3.5-5.1 [facility] Comment on above: Performed By: #### C BC1 #### [facility] [address] [place], [place] [address] Sodium [Moles/Vol] 136 mmol/L Normal 136-145 [facility] Comment on above: Performed By: #### C BC1 #### [facility] [address] [place], [place] [address] CASE MANAGEMon 09-03-2019 CASE MANAGEM HNO ID: [id number] Author: Ammy (Rn) YURI Gutierres Service: ? [...] 03, 2019 TIME: 9:50 AM PAGER/CONTACT #: [phone] [facility] CONSULT PROGon 09-03-2019 CONSULT PROG HNO ID: [id number] Author: Doris Eden Service: Endocrinology Author Type: Physician Type: Consult Progress Note Filed: 09/03/2019 8:39 AM Note Text: ENDOCRINOLOGY CONSULT PROGRESS NOTE SERVICE DATE: 09/03/2019 SERVICE TIME: 8:05 AM Subjective INTERVAL HPI: Pt followed for diabetes mellitus type 2 with complications. Tr from [place]; adm for right foot infection and gangrene; [...] 2019 TIME: 8:39 AM PAGER: [phone] Normal [facility] Hemogramon 09-03-2019 Erythrocyte distribution width (RBC) [Ratio] 15.4 % High 11.6-14.4 [facility] Comment on above: Performed By: #### M AG #### [address] [address] Hematocrit (Bld) [Volume fraction] 28.1 % Low 40.1-51.0 [facility] Comment on above: Performed By: #### M AG #### [address] [address] Hemoglobin (Bld) [Mass/Vol] 8.9 g/dL Low 13.7-17.5 [facility] Comment on above: Performed By: #### M AG #### [address] [address] MCH (RBC) [Entitic mass] 29.1 pg Normal 25.7-32.2 [facility] Comment on above: Performed By: #### M AG #### [address] [address] MCHC (RBC) [Mass/Vol] 31.7 % Low 32.3-36.5 [facility] Comment on above: Performed By: #### M AG #### [facility] [address] [place] [address] MCV (RBC) [Entitic vol] 91.8 fL Normal 83.2-95.[address] [facility] Comment on above: Performed By: #### M AG #### [facility] [address] [place] [address] Platelet mean volume (Bld) [Entitic vol] 9.4 fL Normal 8.7-12.0 [facility] Comment on above: Performed By: #### M AG #### [place] [address] Platelets (Bld) [#/Vol] 410 thou/cmm High 141-365 [facility] Comment on above: Performed By: #### M AG #### [place] [address] RBC (Bld) [#/Vol] 3.06 mil/cmm Low 4.63-6.08 [facility] Comment on above: Performed By: #### M AG #### [place] [address] RDW SD 48.7 fl High 36.1-45.8 [facility] Comment on above: Performed By: #### M AG #### [place] [address] WBC (Bld) [#/Vol] 12.94 thou/cmm High 4.23-9.07 [facility] Comment on above: Performed By: #### M AG #### [place] [address] Magnesium Bloodon 09-03-2019 Magnesium [Mass/Vol] 1.4 mg/dL Low 1.6-2.6 [facility] Comment on above: Performed By: #### M AG #### [place] [address] NURSING PROGon 09-03-2019 NURSING PROG HNO ID: [id number] Author: Kassidy Izquierdo) Vipin, YURI Service: Nursing Author Type: Registered Nurse Type: Nursing Progress Note Filed: 09/03/2019 11:57 AM Note Text: Nursing Progress Note Patient Name: Elizabeth Modi Patient Location: [id number]3 239 __ Daily Note: 1047--report called to Kandi 420Jamil RN. 1113--pt transferred to 422 via chair on RA with Rn and Sr Cotton. Pt remains in chair, chair locked, call light within reach, tele applied. YURI Chau in room. This note was completed by: Kassidy Lew RN [facility] PROGRESSon 09-03-2019 PROGRESS HNO ID: [id number] Author: Francine Roberts Service: Vascular Surgery Author [...] questions or concerns Mon-Mon 6a-5p please page [phone]. After 5pm and on Weekends and Holidays, [...] 0659 09/03/19 07 - 09/04/19 0659 Shift 3881-7788 7045-7596 6136-1780 24 Hour Total 5666-6763 5107-3490 5909-9142 24 Hour Total INTAKE Shift Total OUTPUT [...] lower extremity angiogram with partial occlusion R CARE INFORMATION ASSOCIATE, reconstitution at R below knee pop, 2-vessel [...] on AKA/BKA - transfer to [facility] today SIGNATURE: Francine Roberts MD PATIENT NAME: Elizabeth Modi DATE: September 03, 2019 TIME: 6:21 AM Vascular AND Thoracic Surgery Service Pager: For questions or concerns Mon-Mon 6a-5p please page [phone]. After 5pm and on Weekends and Holidays, please page [phone] if in ICU or [phone] if on RNF. Normal [facility] Phosphorus Bloodon 0 Phosphate [Mass/Vol] 2.9 mg/dL Normal 2.5-4.9 [facility] Comment on above: Performed By: #### P 8 #### [facility] [place] [id number] THERAPY NTon 09-03-2019 THERAPY NT HNO ID: [id number] Author: Tamiko Babb/Vickie Nur Service: Occupational Therapy Author Type: Occupational Therapist Type: Therapy (PT/OT/Speech/Resp) Filed: 09/03/2019 9:19 AM Note Text: Occupational Therapy Evaluation(Re-Evaluati on) SERVICE DATE: 09/03/2019 SERVICE TIME: 0845 to 0900 ROOM: [place] [address] Recommended Discharge Disposition: Acute Rehab Justification For [...] and signs-other Interventions Provided: Re-evaluation $ Reevaluation (27606) Billed Units: 1 unit Total Timed Code Treatment Minutes: 39 Total Treatment Time (minutes): 15 SUBJECTIVE: Current Hospital Course: Chart reviewed; R femoral endarterectomy 09/02/2019 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 "I am so glad I got to the chair." 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 Entry To Home: Stairs;With Rail Number [...] details for this therapy evaluation/treatment. SIGNATURE: NADIR Diaz/L PATIENT NAME: Elizabeth Modi DATE: September 03, 2019 TIME: 9:15 AM Normal [facility] THERAPY NT HNO ID: [id number] Author: Marilyn (Pt) Mark Service: Physical Therapy Author Type: Physical Therapist Type: Therapy (PT/OT/Speech/Resp) Filed: 09/03/2019 9:12 AM Note Text: Physical Therapy Treatment SERVICE DATE: 09/03/2019 SERVICE TIME: 0830 to 0853 ROOM: [place] [address] Recommended Discharge Disposition: Acute Rehab Recommended Discharge [...] Weakness (generalized) Interventions Provided: Re-evaluation $ Reevaluation (89820) Billed Units: 1 unit Re-evaluation completed due to completion of R femoral endarterectomy Therapeutic Activity (87404) Treatment Minutes: 10 1 unit Skilled Intervention(s): [...] Environment Patient Lives With: Self/Alone 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 Entry To Home: Stairs;With Rail Number [...] September 03, 2019 TIME: 9:08 AM Normal [facility] US ARTERIAL PVR LOWERon 08-17 US ARTERIAL PVR LOWER * * *Final Report* * * DATE OF EXAM: Sep 03 2019 11:07AM A2U 1107 - US ARTERIAL PVR LOWER / PROCEDURE REASON: s/p surgery * * * * Physician Interpretation * * * * Non-Invasive Vascular Laboratory [facility] Lower Extremity Arterial Physiology Study Bilateral/Complete Date of service/time: 09/03/2019 9:25:00 AM Name: ELIZABETH MODI Date of : 1940 Age: 79 years Gender: M Medical History Tobacco: Former PAD: Yes Hypertension: Yes Diabetes: Yes Clinical Indication Post operative right CARE INFORMATION ASSOCIATE endarterectomy. TECHNIQUE -------- An arterial physiological examination [...] Interpreting physician: Gordo Figueroa MD Final RP Supervisor Operations: RICHARD Transcriprice Date/Time: Sep 03 2019 9:25A Dictated by : GORDO FIGUEROA MD This examination was interpreted and the report reviewed and electronically signed by: GORDO FIGUEROA MD on Sep 05 2019 9:48AM EST Normal [facility] US VEIN MAPPING LOWER BILon 09-03-2019 US VEIN MAPPING LOWER JIGNA * * *Final Rep ort* * * DATE OF EXAM: Sep 02 2019 10:07PM [facility] 1081 - US VEIN MAPPING LOWER [...] lower extremity. Superficial venous measurements as above. Supervisor Operations: PSCB Transcribe Date/Time: Sep 02 2019 10:28P Dictated by : DWAYNE BURTON MD This examination was interpreted and the report reviewed and electronically signed by: DWAYNE BURTON MD on Sep 02 2019 10:38PM [facility] ANES PREOPon 09-02-2019 ANES PREOP HNO ID: [id number] Author: Tammy Hinson Service: Anesthesiology Author Type: [...] injection (GLUCAGEN) 1 mg INTRAMUSCULAR PRN Tom Wood) DO [place] Or - [MAR Hold due [...] September 02, 2019 TIME: 9:50 AM CSN: [id number] [facility] BRIEF OP NOTon 09-02-2019 BRIEF OP NOT HNO ID: [id number] Author: Francine Roberts Service: Vascular Surgery Author [...] BRIEF OPERATIVE / PROCEDURE NOTE LOG ID: [id number] Patient Name:Elizabeth Modi CSN: [id number] Surgery/Procedure Date: 09/02/2019 Incision/Procedure Start Time: 11:01 AM Incision Close/Procedure End Time: Surgeon(s)/Procedurali st(s) and Lithopone Charger(s): Surgeon(s) and Role: * Jovanny Parmar - Primary * Francine Roberts - Resident - Assisting Child Care Teacher: Lori Schmid SA Procedure(s): Procedure(s) (LRB): ENDARTERECTOMY [...] 02, 2019 TIME: 12:47 PM PAGER/CONTACT #: [phone] Normal [facility] Basic Panelon 09-02-2019 Creatinine [Mass/Vol] 0.78 mg/dL Normal 0.67-1.17 [facility] Comment on above: Result Comment: Use of this assay is not recommended for patients undergoing treatment with phenindione, due to the potential for falsely depressed results. Performed By: #### M AG #### [place] [address] Anion gap [Moles/Vol] 12 mmol/L Normal 8-16 [facility] Comment on above: Performed By: #### M AG #### [facility] [address] [place], [place] [address] Calcium [Mass/Vol] 8.4 mg/dL Low 8.5-10.1 [facility] Comment on above: Performed By: #### M AG #### [facility] [address] [place], [place] [address] CO2 [Moles/Vol] 24 mmol/L Normal 21-32 [facility] Comment on above: Performed By: #### M AG #### [facility] [address] [place], [place] [address] Urea nitrogen [Mass/Vol] 24 mg/dL High 7-18 [facility] Comment on above: Performed By: #### M AG #### [address] [address] Glucose [Mass/Vol] 148 mg/dL High 70-99 [facility] Comment on above: Performed By: #### M AG #### [facility] [address] [place], [place] [address] Chloride [Moles/Vol] 104 mmol/L Normal 98-107 [facility] Comment on above: Performed By: #### M AG #### [facility] [address] [place], [place] [address] Potassium [Moles/Vol] 4.1 mmol/L Normal 3.5-5.1 [facility] Comment on above: Performed By: #### M AG #### [address] [address] Sodium [Moles/Vol] 136 mmol/L Normal 136-145 [facility] Comment on above: Performed By: #### M AG #### [address] [address] CONSULT PROGon 09-02-2019 CONSULT PROG HNO ID: [id number] Author: Doris Eden Service: Endocrinology Author Type: Physician Type: Consult Progress Note Filed: 09/02/2019 1:35 PM Note Text: ENDOCRINOLOGY CONSULT PROGRESS NOTE SERVICE DATE: 09/02/2019 SERVICE TIME: 1:25 PM Subjective INTERVAL HPI: Pt followed for diabetes mellitus type 2 with complications. Tr from [place]; adm for right foot infection and gangrene; [...] 2019 TIME: 1:35 PM PAGER: [phone] Normal [facility] Hemogramon 09-02-2019 Erythrocyte distribution width (RBC) [Ratio] 14.9 % High 11.6-14.4 [facility] Comment on above: Performed By: #### C BC1 #### [place] [address] Hematocrit (Bld) [Volume fraction] 33.4 % Low 40.1-51.0 [facility] Comment on above: Performed By: #### C BC1 #### [place] [address] Hemoglobin (Bld) [Mass/Vol] 10.3 g/dL Low 13.7-17.5 [facility] Comment on above: Performed By: #### C BC1 #### [place] [address] MCH (RBC) [Entitic mass] 28.1 pg Normal 25.7-32.2 [facility] Comment on above: Performed By: #### C BC1 #### [place] [address] MCHC (RBC) [Mass/Vol] 30.8 % Low 32.3-36.5 [facility] Comment on above: Performed By: #### C BC1 #### [place] [address] MCV (RBC) [Entitic vol] 91.0 fL Normal 83.2-95.[address] [facility] Comment on above: Performed By: #### C BC1 #### [address] [place], [place] [address] Platelet mean volume (Bld) [Entitic vol] 9.7 fL Normal 8.7-12.0 [facility] Comment on above: Performed By: #### C BC1 #### [facility] [address] [place], [place] [address] Platelets (Bld) [#/Vol] 425 thou/cmm High 141-365 [facility] Comment on above: Performed By: #### C BC1 #### [facility] [address] [place], [place] [address] RBC (Bld) [#/Vol] 3.67 mil/cmm Low 4.63-6.08 [facility] Comment on above: Performed By: #### C BC1 #### [facility] [address] [place] [address] RDW SD 47.8 fl High 36.1-45.8 [facility] Comment on above: Performed By: #### C BC1 #### [facility] [address] [place], [place] [address] WBC (Bld) [#/Vol] 9.66 thou/cmm High 4.23-9.07 [facility] Comment on above: Performed By: #### C BC1 #### [place] [id number] Magnesium Bloodon 09-02-2019 Magnesium [Mass/Vol] 1.5 mg/dL Low 1.6-2.6 [facility] Comment on above: Performed By: #### M AG #### [facility] [address] [place] [address] OPERATIVE NOon 09-02-2019 OPERATIVE NO HNO ID: [id number] Author: Jovanny Parmar Service: Vascular Surgery Author Type: Physician Type: Operative Report Filed: 09/30/2019 2:43 PM Note Text: [facility] - Operative Report ELIZABETH MODI : 1940 AGE: 79. SEX: M PATIENT TYPE: I HOSP SVC: KEENAN LOCATION: [facility] ATTENDING PHYSICIAN: JOVANNY PARMAR CSN NUMBER: [id number] DATE OF SURGERY/PROCEDURE: 09/02/2019 INCISION/PROCEDURE START TIME: 12:28 PM INCISION CLOSE/PROCEDURE END TIME: 2:14 PM PREOPERATIVE DIAGNOSIS: Gangrene, right lower extremity. POSTOPERATIVE DIAGNOSIS: Gangrene, right lower extremity. SURGEON: Jovanny Parmar MD RADIOLOGY SERVICES MANAGER: Francine Roberts. SURGERY/PROCEDURE: Right femoral endarterectomy with [...] recovery in stable condition. Jovanny Parmar MD LM:[id number] /[id number] Normal [facility] PROGRESSon 03-16-2020 PROGRESS HNO ID: [id number] Author: Zack Jenkins Service: Hospital Medicine Author Type: Physician Type: Progress Notes Filed: 09/02/2019 5:22 PM Note Text: DEPARTMENT OF HOSPITAL MEDICINE PROGRESS NOTE SERVICE DATE: 09/02/2019 SERVICE TIME: 9am Hospital Medicine/Primary Attending: Zack Jenkins, DO NIGHT AND WEEKEND COVERAGE: After 7pm please page [phone] CHIEF COMPLAINT: No new complaints SUBJECTIVE: Pt [...] amputation -Angio 08/26 showing partial occlusion R CARE INFORMATION ASSOCIATE -Vascular and Ortho consults -Plan is for?endarterectomy [...] this note may have been generated using [employer] voice recognition software. Reasonable efforts were made to correct any dictation errors that resulted due to the programming of this software but some may still be present. Normal [facility] PROGRESS HNO ID: [id number] Author: Francine Roberts Service: Vascular Surgery Author [...] questions or concerns Mon-Fri 6a-5p please page [phone]. After 5pm and on Weekends and Holidays, [...] lower extremity angiogram with partial occlusion R CARE INFORMATION ASSOCIATE, reconstitution at R below knee pop, 2-vessel [...] ICU or 2174 if on RNF. [facility] PT EDon 09-02-2019 PT ED HNO ID: [id number] Author: Chelsea (Rn) Shun Paz RN Service: [...] RN In Department: [place] SURGERY OR [facility] Phosphorus Bloodon 0 Phosphate [Mass/Vol] 2.9 mg/dL Normal 2.5-4.9 [facility] Comment on above: Performed By: #### P 8 #### [place] [address] CONSULT PROGon 09-01-2019 CONSULT PROG HNO ID: [id number] Author: Doris Eden Service: Endocrinology Author Type: Physician Type: Consult Progress Note Filed: 09/01/2019 9:12 AM Note Text: ENDOCRINOLOGY CONSULT PROGRESS NOTE SERVICE DATE: 09/01/2019 SERVICE TIME: 9:05 AM Subjective INTERVAL HPI: Pt followed for diabetes mellitus type 2 with complications. Tr from [place]; adm for right foot infection and gangrene; [...] 2019 TIME: 9:12 AM PAGER: [phone] Normal [facility] Hemogramon 09-01-2019 Erythrocyte distribution width (RBC) [Ratio] 14.9 % High 11.6-14.4 [facility] Comment on above: Performed By: #### M AG #### [place] [address] Hematocrit (Bld) [Volume fraction] 27.1 % Low 40.1-51.0 [facility] Comment on above: Performed By: #### M AG #### [facility] [address] [place] [address] Hemoglobin (Bld) [Mass/Vol] 8.5 g/dL Low 13.7-17.5 [facility] Comment on above: Performed By: #### M AG #### [facility] [address] [place] [address] MCH (RBC) [Entitic mass] 28.1 pg Normal 25.7-32.2 [facility] Comment on above: Performed By: #### M AG #### [facility] [address] [place] [address] MCHC (RBC) [Mass/Vol] 31.4 % Low 32.3-36.5 [facility] Comment on above: Performed By: #### M AG #### [facility] [address] [place] [address] MCV (RBC) [Entitic vol] 89.7 fL Normal 83.2-95.[address] [facility] Comment on above: Performed By: #### M AG #### [facility] [address] [place] [address] Platelet mean volume (Bld) [Entitic vol] 9.4 fL Normal 8.7-12.0 [facility] Comment on above: Performed By: #### M AG #### [facility] [address] [place] [address] Platelets (Bld) [#/Vol] 334 thou/cmm Normal 141-365 [facility] Comment on above: Performed By: #### M AG #### [facility] [address] [place] [address] RBC (Bld) [#/Vol] 3.02 mil/cmm Low 4.63-6.08 [facility] Comment on above: Performed By: #### M AG #### [facility] [address] [place] [address] RDW SD 46.4 fl High 36.1-45.8 [facility] Comment on above: Performed By: #### M AG #### [facility] [address] [place], [place] [address] WBC (Bld) [#/Vol] 7.69 thou/cmm Normal 4.23-9.07 [facility] Comment on above: Performed By: #### M AG #### [facility] [address] [place], [place] [address] PROGRESSon 09-01-2019 PROGRESS HNO ID: [id number] Author: Zack Jenkins Service: Hospital Medicine Author Type: Physician Type: Progress Notes Filed: 09/01/2019 4:10 PM Note Text: DEPARTMENT OF HOSPITAL MEDICINE PROGRESS NOTE SERVICE DATE: 09/01/2019 SERVICE TIME: 4:07 PM Hospital Medicine/Primary Attending: Zack Jenkins, DO NIGHT AND WEEKEND COVERAGE: After 7pm please page [phone] CHIEF COMPLAINT: No new complaints SUBJECTIVE: Pt [...] amputation -Angio 08/26 showing partial occlusion R CARE INFORMATION ASSOCIATE -Vascular and Ortho consults -Plan is for?endarterectomy [...] 01, 2019 TIME: 4:07 PM PAGER/CONTACT #: Erasmo color pager Disclaimer: Portions of this note may have been generated using [employer] App voice recognition software. Reasonable efforts were made to correct any dictation errors that resulted due to the programming of this software but some may still be present. Normal [facility] PROGRESS HNO ID: [id number] Author: Francine Roberts Service: Vascular Surgery Author [...] questions or concerns Mon-Mon 6a-5p please page [phone]. After 5pm and on Weekends and Holidays, please page [phone] if in ICU or [phone] if on [...] 0659 09/01/19 0700 - 09/02/19 0659 Shift [id number] 0213-0580 9998-5171 24 Hour Total 0229-4113 6011-6272 4546-2134 24 Hour Total INTAKE Shift Total OUTPUT [...] lower extremity angiogram with partial occlusion R CARE INFORMATION ASSOCIATE, reconstitution at R below knee pop, 2-vessel [...] ICU or 2174 if on RNF. Normal [facility] THERAPY NTon 09-01-2019 THERAPY NT HNO ID: [id number] Author: Sheridan (Pt) Antwan Service: Physical Therapy Author Type: Physical Therapist Type: Therapy (PT/OT/Speech/Resp) Filed: 09/01/2019 4:02 PM Note Text: Physical Therapy Treatment SERVICE DATE: 09/01/2019 SERVICE TIME: 1520 to 1538 ROOM: [id number] Recommended Discharge Disposition: Acute Rehab Justification For [...] l;Muscle Weakness (generalized) Interventions Provided: Therapeutic Activity (33777) Therapeutic Activity (38440) Treatment Minutes: 18 1 unit Skilled Intervention(s): Functional mobility performed as described below. In EOB sitting for improved strength, ROM, conditioning, function: L ankle DF/PF, glute sets, LAQs, marching, abd/iso add, 2 x 10 reps each; instructed ex technique with short rest breaks needed. 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 SIGNATURE: Sheridan Moncada PT PATIENT NAME: lEizabeth Modi DATE: September 01, 2019 TIME: 3:55 PM Normal [facility] Basic Panelon 08-31-2019 Creatinine [Mass/Vol] 0.76 mg/dL Normal 0.67-1.17 [facility] Comment on above: Result Comment: Use of this assay is not recommended for patients undergoing treatment with phenindione, due to the potential for falsely depressed results. Performed By: #### C _ANA #### [address] [address] Anion gap [Moles/Vol] 11 mmol/L Normal 8-16 [facility] Comment on above: Performed By: #### C _ANA #### [address] [address] Calcium [Mass/Vol] 8.2 mg/dL Low 8.5-10.1 [facility] Comment on above: Performed By: #### C _ANA #### [address] [address] CO2 [Moles/Vol] 23 mmol/L Normal 21-32 [facility] Comment on above: Performed By: #### C _ANA #### [address] [address] Glucose [Mass/Vol] 85 mg/dL Normal 70-99 [facility] Comment on above: Performed By: #### C _ANA #### [facility] [address] [place], [place] [address] Urea nitrogen [Mass/Vol] 21 mg/dL High 7-18 [facility] Comment on above: Performed By: #### C _ANA #### [address] [address] Chloride [Moles/Vol] 106 mmol/L Normal 98-107 [facility] Comment on above: Performed By: #### C _ANA #### [facility] [address] [place], [place] [address] Potassium [Moles/Vol] 3.9 mmol/L Normal 3.5-5.1 [facility] Comment on above: Performed By: #### C _ANA #### [facility] [address] [place], [place] [address] Sodium [Moles/Vol] 136 mmol/L Normal 136-145 [facility] Comment on above: Performed By: #### C _ANA #### [facility] [address] [place], [place] [address] CONSULT PROGon 08-31-2019 CONSULT PROG HNO ID: [id number] Author: Doris Eden Service: Endocrinology Author Type: Physician Type: Consult Progress Note Filed: 08/31/2019 8:08 AM Note Text: ENDOCRINOLOGY CONSULT PROGRESS NOTE SERVICE DATE: 08/31/2019 SERVICE TIME: 7:50 AM Subjective INTERVAL HPI: Pt followed for diabetes mellitus type 2 with complications. Tr from [place]; adm for right foot infection and gangrene; [...] 2019 TIME: 8:08 AM PAGER: [phone] Normal [facility] Hemogramon 08-31-2019 Erythrocyte distribution width (RBC) [Ratio] 14.5 % High 11.6-14.4 [facility] Comment on above: Performed By: #### M AG #### [address] [address] Hematocrit (Bld) [Volume fraction] 31.2 % Low 40.1-51.0 [facility] Comment on above: Performed By: #### M AG #### [address] [address] Hemoglobin (Bld) [Mass/Vol] 10.0 g/dL Low 13.7-17.5 [facility] Comment on above: Performed By: #### M AG #### [facility] [address] [place] [address] MCH (RBC) [Entitic mass] 28.7 pg Normal 25.7-32.2 [facility] Comment on above: Performed By: #### M AG #### [facility] [address] [place] [address] MCHC (RBC) [Mass/Vol] 32.1 % Low 32.3-36.5 [facility] Comment on above: Performed By: #### M AG #### [facility] [address] [place] [address] MCV (RBC) [Entitic vol] 89.4 fL Normal 83.2-95.[address] [facility] Comment on above: Performed By: #### M AG #### [facility] [address] [place] [address] Platelet mean volume (Bld) [Entitic vol] 9.4 fL Normal 8.7-12.0 [facility] Comment on above: Performed By: #### M AG #### [facility] [address] [place] [address] Platelets (Bld) [#/Vol] 385 thou/cmm High 141-365 [facility] Comment on above: Performed By: #### M AG #### [facility] [address] [place] [address] RBC (Bld) [#/Vol] 3.49 mil/cmm Low 4.63-6.08 [facility] Comment on above: Performed By: #### M AG #### [facility] [address] [place] [address] RDW SD 45.1 fl Normal 36.1-45.8 [facility] Comment on above: Performed By: #### M AG #### [facility] [address] [place] [address] WBC (Bld) [#/Vol] 8.81 thou/cmm Normal 4.23-9.07 [facility] Comment on above: Performed By: #### M AG #### [address] [place], [place] [address] Magnesium Bloodon 08-31-2019 Magnesium [Mass/Vol] 1.1 mg/dL Low 1.6-2.6 [facility] Comment on above: Performed By: #### M AG #### [facility] [address] [place], [place] [address] PROGRESSon 08-31-2019 PROGRESS HNO ID: [id number] Author: Zack Jenkins Service: Hospital Medicine Author Type: Physician Type: Progress Notes Filed: 08/31/2019 4:57 PM Note Text: DEPARTMENT OF HOSPITAL MEDICINE PROGRESS NOTE SERVICE DATE: 08/31/2019 SERVICE TIME: 4:53 PM Hospital Medicine/Primary Attending: Zack Jenkins, DO NIGHT AND WEEKEND COVERAGE: After 7pm please page [phone] CHIEF COMPLAINT: no new complaints SUBJECTIVE: Pt [...] amputation -Angio 08/26 showing partial occlusion R CARE INFORMATION ASSOCIATE -Vascular and Ortho consults -Plan is for?endarterectomy [...] units Sub Q BID?? ? Disposition:?Home with [facility]?pending progress and surgery? Plan of care discussed with: Provider, RN, Patient SIGNATURE: Zack Jenkins DO PATIENT NAME: Elizabeth Modi DATE: August 31, 2019 TIME: 4:53 PM PAGER/CONTACT #: Erasmo color pager Disclaimer: Portions of this note may have been generated using [employer] App voice recognition software. Reasonable efforts were made to correct any dictation errors that resulted due to the programming of this software but some may still be present. Normal [facility] PROGRESS HNO ID: [id number] Author: Francine Roberts Service: Vascular Surgery Author [...] questions or concerns Mon-Mon 6a-5p please page [phone]. After 5pm and on Weekends and Holidays, please page [phone] if in ICU or [phone] if on RNF. Subjective SUBJECTIVE: NAEON. Denies [...] Date 08/30/19 07 - 08/31/19 0659 08/31/19 0700 - 09/01/19 0659 Shift [id number] 3964-9285 6079-5827 24 Hour Total 3014-6351 3301-5558 0774-7483 24 Hour Total INTAKE Shift Total OUTPUT Urine 500 865 450 2974 Void (ml) 500 750 067 3507 # of BMs Number of BMs 1 x 1 x Shift Total 500 616 752 8768 Weight (kg) 90.9 90.9 89.6 89.6 89.6 [...] on 08/27/2019 - showing partial occlusion R CARE INFORMATION ASSOCIATE - Right femoral endarterectomy on Monday, then [...] ICU or 2174 if on RNF. Normal [facility] Phosphorus Bloodon 0 Phosphate [Mass/Vol] 3.3 mg/dL Normal 2.5-4.9 [facility] Comment on above: Performed By: #### C BC1 #### [place] [address] Basic Panelon 08-30-2019 Creatinine [Mass/Vol] 0.80 mg/dL Normal 0.67-1.17 [facility] Comment on above: Result Comment: Use of this assay is not recommended for patients undergoing treatment with phenindione, due to the potential for falsely depressed results. Performed By: #### M AG #### [place] [address] Anion gap [Moles/Vol] 12 mmol/L Normal 8-16 [facility] Comment on above: Performed By: #### M AG #### [place] [id number] Calcium [Mass/Vol] 7.7 mg/dL Low 8.5-10.1 [facility] Comment on above: Performed By: #### M AG #### [facility] [address] [place], [place] [address] CO2 [Moles/Vol] 24 mmol/L Normal 21-32 [facility] Comment on above: Performed By: #### M AG #### [facility] [address] [place], [place] [address] Glucose [Mass/Vol] 70 mg/dL Normal 70-99 [facility] Comment on above: Performed By: #### M AG #### [facility] [address] [place], [place] [address] Urea nitrogen [Mass/Vol] 16 mg/dL Normal 7-18 [facility] Comment on above: Performed By: #### M AG #### [facility] [address] [place], [place] [address] Chloride [Moles/Vol] 106 mmol/L Normal 98-107 [facility] Comment on above: Performed By: #### M AG #### [facility] [address] [place], [place] [address] Potassium [Moles/Vol] 4.0 mmol/L Normal 3.5-5.1 [facility] Comment on above: Performed By: #### M AG #### [facility] [address] [place], [place] [address] Sodium [Moles/Vol] 138 mmol/L Normal 136-145 [facility] Comment on above: Performed By: #### M AG #### [facility] [address] [place], [place] [address] CONSULT PROGon 08-30-2019 CONSULT PROG HNO ID: [id number] Author: Doris Eden Service: Endocrinology Author Type: Physician Type: Consult Progress Note Filed: 08/30/2019 8:57 AM Note Text: ENDOCRINOLOGY CONSULT PROGRESS NOTE SERVICE DATE: 08/30/2019 SERVICE TIME: 8:45 AM Subjective INTERVAL HPI: Pt followed for diabetes mellitus type 2 with complications. Tr from [place]; adm for right foot infection and gangrene; [...] 2019 TIME: 8:57 AM PAGER: [phone] Normal [facility] Hemogramon 08-30-2019 Erythrocyte distribution width (RBC) [Ratio] 14.1 % Normal 11.6-14.4 [facility] Comment on above: Performed By: #### C BC1 #### [facility] [address] [place], [place] [address] Hematocrit (Bld) [Volume fraction] 28.8 % Low 40.1-51.0 [facility] Comment on above: Performed By: #### C BC1 #### [facility] [address] [place], [place] [address] Hemoglobin (Bld) [Mass/Vol] 9.0 g/dL Low 13.7-17.5 [facility] Comment on above: Performed By: #### C BC1 #### [facility] [address] [place], [place] [address] MCH (RBC) [Entitic mass] 28.3 pg Normal 25.7-32.2 [facility] Comment on above: Performed By: #### C BC1 #### [facility] [address] [place], [place] [address] MCHC (RBC) [Mass/Vol] 31.3 % Low 32.3-36.5 [facility] Comment on above: Performed By: #### C BC1 #### [facility] [address] [place], [place] [address] MCV (RBC) [Entitic vol] 90.6 fL Normal 83.2-95.[address] [facility] Comment on above: Performed By: #### C BC1 #### [facility] [address] [place], [place] [address] Platelet mean volume (Bld) [Entitic vol] 9.7 fL Normal 8.7-12.0 [facility] Comment on above: Performed By: #### C BC1 #### [facility] [address] [place], [place] [address] Platelets (Bld) [#/Vol] 388 thou/cmm High 141-365 [facility] Comment on above: Performed By: #### C BC1 #### [facility] [address] [place], [place] [address] RBC (Bld) [#/Vol] 3.18 mil/cmm Low 4.63-6.08 [facility] Comment on above: Performed By: #### C BC1 #### [facility] [address] [place], [place] [address] RDW SD 44.2 fl Normal 36.1-45.8 [facility] Comment on above: Performed By: #### C BC1 #### [facility] [address] [place], [place] [address] WBC (Bld) [#/Vol] 9.52 thou/cmm High 4.23-9.07 [facility] Comment on above: Performed By: #### C BC1 #### [facility] [address] [place] [id number] NUTRITIONon 08-30-2019 NUTRITION HNO ID: [id number] Author: Snow Serna Service: Nutrition Therapy Author Type: Registered Dietitian Type: Nutrition Filed: 08/30/2019 1:41 PM Note Text: NUTRITION THERAPY PROGRESS NOTE SERVICE DATE: 08/30/2019 SERVICE TIME: 11:33 AM Nutrition Assessment: Recommended Malnutrition Diagnosis: Moderate Protein-Calorie Malnutrition (08/22/19 1436 : Keturah (Glueline Worker) Valery) Estimated kilocalorie needs: 3225-3287 Calorie Calculation Method: 30-35 kcals/kg Estimated protein [...] August 30, 2019 TIME: 11:33 AM PAGER: [phone] Normal [facility] PROGRESSon 08-30-2019 PROGRESS HNO ID: [id number] Author: Zack Jenkins Service: Hospital Medicine Author Type: Physician Type: Progress Notes Filed: 08/30/2019 5:31 PM Note Text: DEPARTMENT OF HOSPITAL MEDICINE PROGRESS NOTE SERVICE DATE: 08/30/2019 SERVICE TIME: 5:24 PM Hospital Medicine/Primary Attending: Zack Jenkins, DO NIGHT AND WEEKEND COVERAGE: After 7pm please page [phone] CHIEF COMPLAINT: R lower leg pain SUBJECTIVE: [...] amputation -Angio 08/26 showing partial occlusion R CARE INFORMATION ASSOCIATE -Vascular and Ortho consults -Plan is for [...] units Sub Q BID?? ? Disposition:?Home with [facility]?pending progress and surgery? Plan of care discussed with: Provider, RN, Patient SIGNATURE: Zack Jenkins DO PATIENT NAME: Elizabeth Modi DATE: August 30, 2019 TIME: 5:24 PM PAGER/CONTACT #: Ersamo color pager Disclaimer: Portions of this note may have been generated using [employer] Fast [employer] Elegant Tablet [employer] App voice recognition software. Reasonable efforts were made to correct any dictation errors that resulted due to the programming of this software but some may still be present. Normal [facility] PROGRESS HNO ID: [id number] Author: Francine Roberts Service: General Surgery Author [...] questions or concerns Mon-Fri 6a-5p please page [phone]. After 5pm and on Weekends and Holidays, please page [phone] if in ICU or [phone] if on [...] Therapy: Room Air IANDO: Date 08/29/19699 - 08/30/1965808/30/19 07 - 08/31/19 0659 Shift 5586-7300 7319-3026 8058-7896 24 Hour Total 3049-5780 8199-1638 1711-7445 24 Hour Total INTAKE IV 1100 1100 [...] on 08/27/2019 - showing partial occlusion R CARE INFORMATION ASSOCIATE - Endarterectomy on Monday, then determination on [...] ICU or 2174 if on RNF. Normal [facility] THERAPY NTon 08-30-2019 THERAPY NT HNO ID: [id number] Author: Tanja Drummond Service: Physical Therapy Author Type: Physical Therapist Type: Therapy (PT/OT/Speech/Resp) Filed: 08/30/2019 5:00 PM Note Text: Physical Therapy Treatment SERVICE DATE: 08/30/2019 SERVICE TIME: 1415 to 1500 ROOM: [id number] Recommended Discharge Disposition: Acute Rehab Recommended Discharge [...] l;Muscle Weakness (generalized) Interventions Provided: Therapeutic Exercise (07149);Therapeutic Activity (01694) Therapeutic Exercise (76973) Treatment Minutes: 25 2 units Skilled Intervention(s): Patient completed general strengthening exercises in supine, sitting (ankle pump, quad set, gluteal set, heel slide, hip abd/add, straight leg raise, long arc quad, short arc quad, hip adductor squeeze, assisted bridging) x 15-20 reps bilateral lower extremity, with min assist, with min verbal/tactile cues for optimal muscle recruitment, muscle activation, and muscle strengthening. Therapeutic Activity (44407) Treatment Minutes: 15 1 unit Skilled Intervention(s): [...] Hospital Course: Chart reviewed; endartectomy moved from to Friday 09/01 Reason for Physical Therapy Consult : treatment Relevant Past Medical History: thyroid, HTN, DM, claudication Patient Report: "They moved my surgery." agreeable to physical therapy. Complains of 5/10 right lower extremity . No family present. 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 Performed By: #### C _ANA #### [place] [address] Anion gap [Moles/Vol] 9 mmol/L Normal 8-16 [facility] Comment on above: Performed By: #### C _ANA #### [place] [address] CO2 [Moles/Vol] 27 mmol/L Normal 21-32 [facility] Comment on above: Performed By: #### C _ANA #### [address] [address] Glucose [Mass/Vol] 83 mg/dL Normal 70-99 [facility] Comment on above: Performed By: #### C _ANA #### [address] [address] Urea nitrogen [Mass/Vol] 14 mg/dL Normal 7-18 [facility] Comment on above: Performed By: #### C _ANA #### [facility] [address] [place] [address] Calcium [Mass/Vol] 7.9 mg/dL Low 8.5-10.1 [facility] Comment on above: Performed By: #### C _ANA #### [facility] [address] [place] [address] Chloride [Moles/Vol] 106 mmol/L Normal 98-107 [facility] Comment on above: Performed By: #### C _ANA #### [facility] [address] [place] [address] Potassium [Moles/Vol] 4.0 mmol/L Normal 3.5-5.1 [facility] Comment on above: Performed By: #### C _ANA #### [facility] [address] [place] [address] Sodium [Moles/Vol] 138 mmol/L Normal 136-145 [facility] Comment on above: Performed By: #### C _ANA #### [facility] [address] [place] [address] CASE MANAGEMon 08-29-2019 CASE MANAGEM HNO ID: [id number] Author: Tami SantiagoRn) YURI Patricio Service: Care Management Author Type: Registered Nurse Type: Care Mgt Progress Note Filed: 08/29/2019 11:27 AM Note Text: CARE MANAGEMENT PROGRESS NOTE SERVICE DATE: 08/29/2019 SERVICE TIME: 11:27 AM LOS: 8 days Chart reviewed. 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 Referral to [facility]- pt will need precert. Will follow clinical progress. SIGNATURE: Tami Patricio RN PATIENT NAME: Elizabeth Modi DATE: August 29, 2019 TIME: 11:27 AM PAGER/CONTACT #: [phone] [facility] CONSULT PROGon 08-29-2019 CONSULT PROG HNO ID: [id number] Author: Luke Briones (Gurwinder) Sailaja Service: Wound/Ostomy Author Type: Nurse Practitioner Type: Consult Progress Note Filed: 08/29/2019 3:36 PM Note Text: WOUND CARE CONSULT ADMISSION SPECIALIST NOTE SERVICE DATE: 08/29/2019 SERVICE TIME: 14:45 TIME SPENT (minutes): 30 REASON FOR CONSULT: Reevaluation of right leg wounds and overall skin check. CHIEF COMPLAINT: Recent surgery to right leg with more coming on Monday Subjective HISTORY OF PRESENT ILLNESS: Mr. Modi is a 79 year old male who is seen today with Leila Goel, Wound/forming process line worker, and presented to hospital with complaints of [...] on Monday09/02/19 for right femoral endartectomy. Obtained truvRentBits heel boot for patient's left heel and seat cushion. Will order patient LLP210 mattress and turn and reposition every 2 hours or more often. A photo was taken of the patient's wound(s). Photos can be found under the Get Images tab on [employer]. Photos are uploaded by the wound rn coronary care unit and may not be immediately available for viewing. Contact the wound and ostomy care department with questions. SIGNATURE: Luke Menard APRN.GURWINDER,CWOCN PATIENT NAME: Elizabeth Modi DATE: August 29, 2019 TIME: 3:23 PM CONTACT#: [id number] [facility] CONSULT PROG HNO ID: [id number] Author: Doris Eden Service: Endocrinology Author Type: Physician Type: Consult Progress Note Filed: 08/29/2019 8:38 AM Note Text: ENDOCRINOLOGY CONSULT PROGRESS NOTE SERVICE DATE: 08/29/2019 SERVICE TIME: 8:25 AM Subjective INTERVAL HPI: Pt followed for diabetes mellitus type 2 with complications. Tr from [place]; adm for right foot infection and gangrene; [...] 2019 TIME: 8:38 AM PAGER: [phone] Normal [facility] Hemogramon 08-29-2019 Erythrocyte distribution width (RBC) [Ratio] 14.1 % Normal 11.6-14.4 [facility] Comment on above: Performed By: #### F ERR #### [facility] [address] [place], [place] [address] Hematocrit (Bld) [Volume fraction] 27.5 % Low 40.1-51.0 [facility] Comment on above: Performed By: #### F ERR #### [facility] [address] [place], [place] [address] Hemoglobin (Bld) [Mass/Vol] 8.8 g/dL Low 13.7-17.5 [facility] Comment on above: Performed By: #### F ERR #### [facility] [address] [place], [place] [address] MCH (RBC) [Entitic mass] 29.0 pg Normal 25.7-32.2 [facility] Comment on above: Performed By: #### F ERR #### [facility] [address] [place], [place] [address] MCHC (RBC) [Mass/Vol] 32.0 % Low 32.3-36.5 [facility] Comment on above: Performed By: #### F ERR #### [facility] [address] [place] [address] MCV (RBC) [Entitic vol] 90.8 fL Normal 83.2-95.[address] [facility] Comment on above: Performed By: #### F ERR #### [facility] [address] [place], [place] [address] Nucleated RBC (Bld) [#/Vol] 0.02 thou/cmm High 0.00-0.01 [facility] Comment on above: Performed By: #### F ERR #### [facility] [address] [place], [place] [address] Nucleated RBC/100 WBC (Bld) [Ratio] 0.2 % Normal 0.0-0.2 [facility] Comment on above: Performed By: #### F ERR #### [facility] [address] [place], [place] [address] Platelet mean volume (Bld) [Entitic vol] 9.5 fL Normal 8.7-12.0 [facility] Comment on above: Performed By: #### F ERR #### [facility] [address] [place], [place] [address] Platelets (Bld) [#/Vol] 430 thou/cmm High 141-365 [facility] Comment on above: Performed By: #### F ERR #### [facility] [address] [place] [id number] RBC (Bld) [#/Vol] 3.03 mil/cmm Low 4.63-6.08 [facility] Comment on above: Performed By: #### F ERR #### [facility] [address] [place] [id number] RDW SD 45.0 fl Normal 36.1-45.8 [facility] Comment on above: Performed By: #### F ERR #### [facility] [address] [place] [id number] WBC (Bld) [#/Vol] 10.45 thou/cmm High 4.23-9.07 [facility] Comment on above: Performed By: #### F ERR #### [facility] [address] [place] [address] Magnesium Bloodon 08-29-2019 Magnesium [Mass/Vol] 1.6 mg/dL Normal 1.6-2.6 [facility] Comment on above: Performed By: #### M AG #### [facility] [address] [place] [address] PROGRESSon 08-29-2019 PROGRESS HNO ID: [id number] Author: Zack Jenkins Service: Hospital Medicine Author Type: Physician Type: Progress Notes Filed: 08/29/2019 5:59 PM Note Text: DEPARTMENT OF HOSPITAL MEDICINE PROGRESS NOTE SERVICE DATE: 08/29/2019 SERVICE TIME: 5:56 PM Hospital Medicine/Primary Attending: Zack Jenkins, DO NIGHT AND WEEKEND COVERAGE: After 7pm please page [phone] CHIEF COMPLAINT: no new complaints SUBJECTIVE: Pt [...] amputation -Angio 08/26 showing partial occlusion R CARE INFORMATION ASSOCIATE -Vascular and Ortho consults -Plan is for [...] Sub Q BID ? Disposition: Home with [facility] pending progress and surgery Plan of care discussed with: Provider, RN, Patient SIGNATURE: Zack Jenkins DO PATIENT NAME: Elizabeth Modi DATE: August 29, 2019 TIME: 5:56 PM PAGER/CONTACT #: Team color pager Disclaimer: Portions of this note may have been generated using [employer] Simple[employer] Fast and Elegant Tablet [employer] App voice recognition software. Reasonable efforts were made to correct any dictation errors that resulted due to the programming of this software but some may still be present. Normal [facility] PROGRESS HNO ID: [id number] Author: Tom Prescott DO Service: General Surgery [...] questions or concerns Mon-Fri 6a-5p please page [phone]. After 5pm and on Weekends and Holidays, [...] 0659 08/29/19 07 - 08/30/19 0659 Shift 2899-0926 1547-8603 6289-1066 24 Hour Total 9034-2660 2322-3657 2566-4707 24 Hour Total INTAKE Shift Total OUTPUT [...] able, out of bed to chair - [facility] - Further care per primary Assessment and plan discussed with attending Tom Prescott DO, MBA PGY-1 General Surgery Resident 08/29/2019 10:01 AM Pager below: Vascular AND Thoracic Surgery Service Pager: For questions or concerns Mon-Mon 6a-5p please page [phone]. After 5pm and on Weekends and Holidays, please page [phone] if in ICU or [phone] if on RNF. Normal [facility] THERAPY NTon 08-29-2019 THERAPY NT HNO ID: [id number] Author: Tanja SantiagoPtSmitha Drummond Service: Physical Therapy Author Type: Physical Therapist Type: Therapy (PT/OT/Speech/Resp) Filed: 08/29/2019 3:21 PM Note Text: Physical Therapy Treatment SERVICE DATE: 08/29/2019 SERVICE TIME: 1138 to 1208 ROOM: [id number] Recommended Discharge Disposition: Acute Rehab Recommended Discharge [...] l;Muscle Weakness (generalized) Interventions Provided: Therapeutic Exercise (64730);Therapeutic Activity (18189) Therapeutic Exercise (36753) Treatment Minutes: 15 1 unit Skilled Intervention(s): [...] extremity general strengthening therapeutic exercise. 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 Performed By: #### C _ANA #### [address] [address] Anion gap [Moles/Vol] 10 mmol/L Normal 8-16 [facility] Comment on above: Performed By: #### C _ANA #### [address] [address] CO2 [Moles/Vol] 27 mmol/L Normal 21-32 [facility] Comment on above: Performed By: #### C _ANA #### [facility] [address] [place], [place] [address] Urea nitrogen [Mass/Vol] 14 mg/dL Normal 7-18 [facility] Comment on above: Performed By: #### C _ANA #### [address] [address] Calcium [Mass/Vol] 7.5 mg/dL Low 8.5-10.1 [facility] Comment on above: Performed By: #### C _ANA #### [address] [address] Glucose [Mass/Vol] 108 mg/dL High 70-99 [facility] Comment on above: Performed By: #### C _ANA #### [facility] [address] [place], [place] [address] Chloride [Moles/Vol] 105 mmol/L Normal 98-107 [facility] Comment on above: Performed By: #### C _ANA #### [facility] [address] [place], [place] [address] Potassium [Moles/Vol] 4.1 mmol/L Normal 3.5-5.1 [facility] Comment on above: Performed By: #### C _ANA #### [facility] [address] [place], [place] [address] Sodium [Moles/Vol] 138 mmol/L Normal 136-145 [facility] Comment on above: Performed By: #### C _ANA #### [facility] [address] [place], [place] [address] CASE MANAGEMon 08-28-2019 CASE MANAGEM HNO ID: [id number] Author: Tami SantiagoRn) YURI Patricio Service: Care Management Author Type: Registered Nurse Type: Care Mgt Progress Note Filed: 08/28/2019 1:57 PM Note Text: CARE MANAGEMENT PROGRESS NOTE SERVICE DATE: 08/28/2019 SERVICE TIME: 1:56 PM LOS: 7 days Chart reviewed. 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 Referral to [facility]- pt will need precert. Will follow clinical progress. SIGNATURE: Tami Patricio RN PATIENT NAME: Elizabeth Modi DATE: August 28, 2019 TIME: 1:56 PM PAGER/CONTACT #: [phone] [facility] CONSULT PROGon 08-28-2019 CONSULT PROG HNO ID: [id number] Author: Doris Eden Service: Endocrinology Author Type: Physician Type: Consult Progress Note Filed: 08/28/2019 8:31 AM Note Text: ENDOCRINOLOGY CONSULT PROGRESS NOTE SERVICE DATE: 08/28/2019 SERVICE TIME: 8:15 AM Subjective INTERVAL HPI: Pt followed for diabetes mellitus type 2 with complications. Tr from [place]; adm for right foot infection and gangrene; [...] August 28, 2019 TIME: 8:31 AM PAGER: [phone] Normal [facility] Hemogram/Diffon 08-28-2019 Abs Immature Grans 0.21 thou/cmm High 0.00-0.05 [facility] Comment on above: Performed By: #### G LMET #### [facility] [address] [place] [address] Abs Neut (ANC) 7.25 thou/cmm High 1.78-5.38 [facility] Comment on above: Performed By: #### G LMET #### [facility] [address] [place] [address] Abs. Baso 0.02 thou/cmm Normal 0.01-0.08 [facility] Comment on above: Performed By: #### G LMET #### [facility] [address] [place] [address] Abs. [place] 0.96 thou/cmm High 0.30-0.82 [facility] Comment on above: Performed By: #### G LMET #### [place] [address] Basophils/100 WBC (Bld) 0.2 % Normal [facility] Comment on above: Performed By: #### G LMET #### [place] [address] Eosinophils (Bld) [#/Vol] 0.16 thou/cmm Normal 0.04-0. 54 [facility] Comment on above: Performed By: #### G LMET #### [place] [address] Eosinophils/100 WBC (Bld) 1.5 % Normal [facility] Comment on above: Performed By: #### G LMET #### [place] [address] Erythrocyte distribution width (RBC) [Ratio] 13.4 % Normal 11.6-14.4 [facility] Comment on above: Performed By: #### G LMET #### [place] [address] Hematocrit (Bld) [Volume fraction] 29.8 % Low 40.1-51.0 [facility] Comment on above: Performed By: #### G LMET #### [facility] [address] [place], [place] [address] Hemoglobin (Bld) [Mass/Vol] 9.5 g/dL Low 13.7-17.5 [facility] Comment on above: Performed By: #### G LMET #### [facility] [address] [place], [place] [address] Immature Grans 2.00 % Normal [facility] Comment on above: Performed By: #### G LMET #### [facility] [address] [place] [address] Lymphocytes (Bld) [#/Vol] 1.82 thou/cmm Normal 0.84-2. 85 [facility] Comment on above: Performed By: #### G LMET #### [facility] [address] [place] [address] Lymphocytes/100 WBC (Bld) 17.5 % Normal [facility] Comment on above: Performed By: #### G LMET #### [facility] [address] [place] [address] MCH (RBC) [Entitic mass] 28.4 pg Normal 25.7-32.2 [facility] Comment on above: Performed By: #### G LMET #### [place] [address] MCHC (RBC) [Mass/Vol] 31.9 % Low 32.3-36.5 [facility] Comment on above: Performed By: #### G LMET #### [facility] [address] [place] [address] MCV (RBC) [Entitic vol] 89.2 fL Normal 83.2-95.[address] [facility] Comment on above: Performed By: #### G LMET #### [facility] [address] [place] [address] Monocytes/100 WBC (Bld) 9.2 % Normal [facility] Comment on above: Performed By: #### G LMET #### [facility] [address] [place] [address] Platelet mean volume (Bld) [Entitic vol] 9.6 fL Normal 8.7-12.0 [facility] Comment on above: Performed By: #### G LMET #### [facility] [address] [place], [place] [address] Platelets (Bld) [#/Vol] 390 thou/cmm High 141-365 [facility] Comment on above: Performed By: #### G LMET #### [facility] [address] [place], [place] [address] RBC (Bld) [#/Vol] 3.34 mil/cmm Low 4.63-6.08 [facility] Comment on above: Performed By: #### G LMET #### [facility] [address] [place], [place] [address] RDW SD 43.3 fl Normal 36.1-45.8 [facility] Comment on above: Performed By: #### G LMET #### [facility] [address] [place] [address] Seg Neutrophil 69.6 % Normal [facility] Comment on above: Performed By: #### G LMET #### [facility] [address] [place], [place] [address] WBC (Bld) [#/Vol] 10.42 thou/cmm High 4.23-9.07 [facility] Comment on above: Performed By: #### G LMET #### [facility] [address] [place] [address] Magnesium Bloodon 08-28-2019 Magnesium [Mass/Vol] 1.1 mg/dL Low 1.6-2.6 [facility] Comment on above: Performed By: #### F ERR #### [facility] [address] [place] [address] NM CARDIAC PERF STRESS/PHARM on 08-28-2019 NM CARDIAC PERF STRESS/PHARM * * *Final Report* * * DATE OF EXAM: Aug 28 2019 9:30AM [facility] 0006 - NM CARDIAC PERF [...] 60 minutes later. See administered doses below. [facility] Date of service: 08/28/2019 9:30:00 [...] during test. Final ------ Stress ECG Report: [facility] Date of service: 08/28/2019 9:30:00 AM Ordering physician: GOLD Estes Specialist: Tawana Larson Lithopone Charger: Libertad Rose Stress ECG interpreting physician: Shira [...] for age. The double product achieved was [address]. Peak heart rate was 98 bpm and [...] index (CRI): 0.51 Rate Pressure Product (RPP): 46108 Reason for test termination: End of Protocol. [...] chest sx during test Final ------ Stress China Painter Report: [facility] Date of service: 08/28/2019 9:30:00 AM Supervising physician: Shira Zuleta MD PATIENT: Name: ELIZABETH MODI Age: 79 years Gender: M The supervising physician was present during the stress procedure. Final Supervisor Operations: RICHARD Transcribe Date/Time: Aug 28 2019 9:30A Dictated by : IGNACIA MENDEZ MD This examination was interpreted and the report reviewed and electronically signed by: IGNACIA MENDEZ MD on Aug 28 2019 3:54PM EST Normal [facility] NURSING PROGon 08-28-2019 NURSING PROG HNO ID: [id number] Author: Tawana SantiagoRn) YURI Larson Service: Cardiovascular Testing Author Type: Registered Nurse Type: Nursing Progress Note Filed: 08/28/2019 2:58 PM Note Text: Dr Zuleta notified of labs prior to testing.Lexiscan Nuclear Stress Test procedure explained. Patient verbalized understanding and test completed with post nuclear scan to follow. Normal [facility] OPERATIVE NOon 08-28-2019 OPERATIVE NO HNO ID: [id number] Author: Jovanny Parmar Service: Vascular Surgery Author Type: Physician Type: Operative Report Filed: 08/29/2019 3:01 PM Note Text: [facility] - Operative Report ELIZABETH MODI : 1940 AGE: 79. SEX: M PATIENT TYPE: I HOSP SVC: INT LOCATION: [facility] ATTENDING PHYSICIAN: Jovanny Parmar MD CSN NUMBER: [id number] DATE OF SURGERY/PROCEDURE: 08/27/2019 INCISION/PROCEDURE START TIME: 10:01 AM INCISION CLOSE/PROCEDURE END TIME: 10:55 AM PREOPERATIVE DIAGNOSIS: Gangrene. POSTOPERATIVE DIAGNOSIS: Gangrene. SURGEON: Jovanny Parmar MD RADIOLOGY SERVICES MANAGER: Tom Prescott. SURGERY/PROCEDURE: Angiogram with bilateral lower [...] serially upsized using Seldinger technique through a 5-[place] sheath and Omni Flush catheter. Aortogram was [...] Recovery in stable condition. Jovanny Parmar MD LM:[id number] /[id number] [facility] PROGRESSon 08-28-2019 PROGRESS HNO ID: [id number] Author: Zack Jenkins Service: Hospital Medicine Author Type: Physician Type: Progress Notes Filed: 08/28/2019 6:10 PM Note Text: DEPARTMENT OF HOSPITAL MEDICINE PROGRESS NOTE SERVICE DATE: 08/28/2019 SERVICE TIME: 6:05 PM Hospital Medicine/Primary Attending: Zack Jenkins, DO NIGHT AND WEEKEND COVERAGE: After 7pm please page [phone] CHIEF COMPLAINT: No new complaints SUBJECTIVE: Pt [...] amputation -Angio 08/26 showing partial occlusion R CARE INFORMATION ASSOCIATE -Vascular and Ortho consults -Plan is for [...] units Sub Q BID Disposition: Home with [facility] pending progress and surgery Plan of care discussed with: Provider, RN, Patient SIGNATURE: Zack Jenkins DO PATIENT NAME: Elizabeth Modi DATE: August 28, 2019 TIME: 6:05 PM PAGER/CONTACT #: Team color pager Disclaimer: Portions of this note may have been generated using [employer] voice recognition software. Reasonable efforts were made to correct any dictation errors that resulted due to the programming of this software but some may still be present. Normal [facility] PROGRESS HNO ID: [id number] Author: Lula Posada (Rt) Service: Radiology Author Type: [employer] Consultant Type: Progress Notes Filed: 08/28/2019 3:12 PM [...] next appointment PROCEDURE TYPE: NM Stress: 12.2mCi Ny91o-Etrxaog was administered IV for Rest Imaging at 1250 by ms. 35.9 mCi [id number] was administered IV for Stress Imaging at 240 by ty. ADMINISTRATION TIME: 1250 PATIENT DISCHARGED TO: Patient taken to IP transport area for return to RNF/ICU/ED. A Diagnostic radioactive procedure has taken place, with no further precautions necessary other than routine body substance precautions. More information regarding radiation safety can be found using this link: [email or web address] [email or web address] SIGNATURE: RT Albino PATIENT NAME: Elizabeth Modi DATE: August 28, 2019 TIME: 3:11 PM PAGER/CONTACT #: [facility] PROGRESS HNO ID: [id number] Author: Francine Roberts Service: Vascular Surgery Author [...] questions or concerns Mon-Fri 6a-5p please page [phone]. After 5pm and on Weekends and Holidays, please page [phone] if in ICU or [phone] if on RNF. Subjective SUBJECTIVE: NAEON. Denies [...] 08/27/19699 - 08/28/1965808/28/19699 - 08/29/19 0659 Shift 4292-4422 1240-7335 4485-3596 24 Hour Total 3439-0525 5029-5568 0910-3077 24 Hour Total INTAKE PO 30 30 [...] able, out of bed to chair - [facility] - Plan for OR Monday for [...] ICU or 2174 if on RNF. Normal [facility] Phosphorus Bloodon 0 Phosphate [Mass/Vol] 3.3 mg/dL Normal 2.5-4.9 [facility] Comment on above: Performed By: #### P 8 #### [facility] [address] [place] [address] THERAPY NTon 08-28-2019 THERAPY NT HNO ID: [id number] Author: Tanja (Pt) Hoda Service: Physical Therapy Author Type: Physical Therapist Type: Therapy (PT/OT/Speech/Resp) Filed: 08/28/2019 3:32 PM Note Text: PHYSICAL THERAPY MISSED VISIT SERVICE DATE: 08/28/2019 SERVICE TIME: 1529 to 1529 ROOM: [place] [address] Attempted Treatment. Patient not seen due to Test/Procedure(out of room for stress test). Will reattempt as able. SIGNATURE: Tanja Drummond, PT PATIENT NAME: Elizabeth Modi DATE: August 28, 2019 TIME: 3:30 PM Normal [facility] THERAPY NT HNO ID: [id number] Author: An (Otr/LSmitha Miller Service: Occupational Therapy Author Type: Occupational Therapist Type: Therapy (PT/OT/Speech/Resp) Filed: 08/28/2019 11:27 AM Note Text: Occupational Therapy Treatment SERVICE DATE: 08/28/2019 SERVICE TIME: 1026 to 1105 ROOM: [place] [address] Recommended Discharge Disposition: Acute Rehab Recommended Discharge [...] and signs-other Interventions Provided: Self Fpc Management (21235) Self Fpc Management (33895) Treatment Minutes: 39 3 units Skilled Intervention(s):Full [...] for surgery. 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 Entry To Home: Stairs;With Rail Number [...] DATE: August 28, 2019 TIME: 11:17 AM [facility] ANES [place] 08-27-2019 ANES POST HNO ID: [id number] Author: Oanh Pugh Service: Anesthesiology Author Type: [...] 2019 TIME: 5:16 PM PAGER/CONTACT #: [facility] ANES PREOPon 08-27-2019 ANES PREOP HNO ID: [id number] Author: Jesse Jimenez Service: Anesthesiology Author Type: [...] August 27, 2019 TIME: 11:00 AM CSN: [id number] [facility] BRIEF OP NOTon 08-27-2019 BRIEF OP NOT HNO ID: [id number] Author: Tom Prescott DO Service: General Surgery [...] BRIEF OPERATIVE / PROCEDURE NOTE LOG ID: [id number] SURGERY/PROCEDURE DATE: 08/27/2019 INCISION/PROCEDURE START TIME: 10:01 AM INCISION CLOSE/PROCEDURE END TIME: 10:55 AM SURGEON(S)/PROCEDURALI ST(S) AND RADIOLOGY SERVICES MANAGER(S): Surgeon(s) and Role: * Jovanny Parmar - Primary * Tom Prescott DO - Resident - Assisting Child Care Teacher: Lori Schmid SA SURGERY/PROCEDURE(S): Diagnostic bilatera lower extremity angiogram ANESTHESIA: Monitored Anesthesia Care FINDINGS: 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 ESTIMATED BLOOD LOSS: 5 mls SPECIMENS: None COMPLICATIONS: None PRE-OP/PRE-PROCEDURE DIAGNOSIS: Right lower extremity ischemia, wet gangreen POST-OP/POST-PROCEDURE DIAGNOSIS: Same as Preop SIGNATURE: Tom Prescott DO PATIENT NAME: Elizabeth Modi DATE: August 27, 2019 TIME: 11:08 AM PAGER/CONTACT #: [facility] CONSULTon 08-27-2019 CONSULT HNO ID: [id number] Author: Gold Sullivan Service: Cardiovascular Medicine Author [...] 27, 2019 TIME: 3:27 PM PAGER/CONTACT #: [phone] [facility] CONSULT PROGon 08-27-2019 CONSULT PROG HNO ID: [id number] Author: Doris Eden Service: Endocrinology Author Type: Physician Type: Consult Progress Note Filed: 08/27/2019 8:02 AM Note Text: ENDOCRINOLOGY CONSULT PROGRESS NOTE SERVICE DATE: 08/27/2019 SERVICE TIME: 7:50 AM Subjective INTERVAL HPI: Pt followed for diabetes mellitus type 2 with complications. Tr from [place]; adm for right foot infection and gangrene; [...] 2019 TIME: 8:02 AM PAGER: [phone] Normal [facility] IR ABDOMEN ANGIO W/ RUNOFFon 08-27-2019 IR ABDOMEN ANGIO W/ RUNOFF * * *Final Report* * * DATE OF EXAM: Aug 27 2019 11:22AM [facility] 0993 - IR ABDOMEN [...] Left reconstitution at the above-knee popliteal artery. Supervisor Operations: ONEL Transcribe Date/Time: Aug 29 2019 1:09P Dictated by : JOVANNY PARMAR MD This examination was interpreted and the report reviewed and electronically signed by: JOVANNY PARMAR MD on Aug 29 2019 1:12PM EST Normal [facility] NUTRITIONon 08-27-2019 NUTRITION HNO ID: [id number] Author: Carine Zimmerman) Samantha Service: Nutrition Therapy Author Type: Registered Dietitian Type: Nutrition Filed: 08/27/2019 3:14 PM Note Text: NUTRITION THERAPY PROGRESS NOTE SERVICE DATE: 08/27/2019 SERVICE TIME: 2:20 PM Nutrition Assessment: Recommended Malnutrition Diagnosis: Moderate Protein-Calorie Malnutrition (08/22/19 1436 : Keturah (Glueline Worker) Valery) Estimated kilocalorie needs: 2794-1997 Calorie Calculation Method: 30-35 kcals/kg Estimated protein [...] August 27, 2019 TIME: 2:20 PM PAGER: [phone] Normal [facility] PROGRESSon 08-27-2019 PROGRESS HNO ID: [id number] Author: Tom Prescott DO Service: General Surgery [...] questions or concerns Mon-Fri 6a-5p please page [phone]. After 5pm and on Weekends and Holidays, [...] Therapy: Room Air IANDO: Date 08/26/19699 - 08/27/1965808/27/19 07 - 08/28/19 0659 Shift 9400-4239 4955-4785 2866-3019 24 Hour Total 1832-0314 7995-3698 4548-7792 24 Hour Total INTAKE PO 30 30 [...] questions or concerns Mon-Fri 6a-5p please page [phone]. After 5pm and on Weekends and Holidays, please page [phone] if in ICU or [phone] if on RNF. Normal [facility] PROGRESS HNO ID: [id number] Author: Sue Bianchi Service: Hospital Medicine Author Type: Physician Type: Progress Notes Filed: 08/27/2019 7:27 AM Note Text: DEPARTMENT OF HOSPITAL MEDICINE PROGRESS NOTE SERVICE DATE: 08/27/2019 SERVICE TIME: 7:24 AM Hospital Medicine/Primary Attending: Sue Bianchi DO NIGHT AND WEEKEND COVERAGE: After 7pm, please call cross cover pager #[phone] Subjective INTERVAL HPI: Patient seen and examined. 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- cranial nerves 2 to 12 grossly intact, [...] 08/21/191914 vte non-pharmacologic prophylaxis - none indicated ([place],oh) 08/21/191914 activity - mobilize patient (ia,me) VTE Prophylaxis: VTE prophylaxis appropriate Disposition: Home with [facility] Plan of care discussed with: Provider, RN, Patient SIGNATURE: Sue Bianchi DO PATIENT NAME: Elizabeth Modi DATE: August 27, 2019 TIME:7:24 AM PAGER/CONTACT #: [phone] Normal [facility] THERAPY NTon 08-27-2019 THERAPY NT HNO ID: [id number] Author: Tanja SantiagoPt) Hoda Service: Physical Therapy Author Type: Physical Therapist Type: Therapy (PT/OT/Speech/Resp) Filed: 08/27/2019 9:33 AM Note Text: PHYSICAL THERAPY MISSED VISIT SERVICE DATE: 08/27/2019 SERVICE TIME: 0932 to 0932 ROOM: [place] Attempted Treatment. Patient not seen due to Test/Procedure(at angiogram). Will follow. SIGNATURE: Tanja Drummond PT PATIENT NAME: Elizabeth Modi DATE: August 27, 2019 TIME: 9:33 AM Normal [facility] THERAPY NT HNO ID: [id number] Author: Maricarmen SantiagoOtr/L) Florentino Service: Occupational Therapy Author Type: Occupational Therapist Type: Therapy (PT/OT/Speech/Resp) Filed: 08/27/2019 9:12 AM Note Text: OCCUPATIONAL THERAPY MISSED VISIT SERVICE DATE: 08/27/2019 SERVICE TIME: 910 to 09 ROOM: [place] (S) Attempted Treatment. Patient not seen due to Surgery. Will follow and reassess post op. SIGNATURE: Maricarmen Good OTR/L PATIENT NAME: Elizabeth Modi DATE: August 27, 2019 TIME: 9:12 AM Normal [facility] Basic Panelon 08-26-2019 Creatinine [Mass/Vol] 0.86 mg/dL Normal 0.67-1.17 [facility] Comment on above: Result Comment: Use of this assay is not recommended for patients undergoing treatment with phenindione, due to the potential for falsely depressed results. Performed By: #### P 8 #### [place] [address] Anion gap [Moles/Vol] 12 mmol/L Normal 8-16 [facility] Comment on above: Performed By: #### P 8 #### [address] [address] CO2 [Moles/Vol] 25 mmol/L Normal 21-32 [facility] Comment on above: Performed By: #### P 8 #### [facility] [address] [place], [place] [address] Urea nitrogen [Mass/Vol] 18 mg/dL Normal 7-18 [facility] Comment on above: Performed By: #### P 8 #### [facility] [address] [place], [place] [address] Calcium [Mass/Vol] 7.8 mg/dL Low 8.5-10.1 [facility] Comment on above: Performed By: #### P 8 #### [facility] [address] [place], [place] [address] Glucose [Mass/Vol] 114 mg/dL High 70-99 [facility] Comment on above: Performed By: #### P 8 #### [facility] [address] [place], [place] [address] Chloride [Moles/Vol] 104 mmol/L Normal 98-107 [facility] Comment on above: Performed By: #### P 8 #### [facility] [address] [place], [place] [address] Potassium [Moles/Vol] 3.8 mmol/L Normal 3.5-5.1 [facility] Comment on above: Performed By: #### P 8 #### [facility] [address] [place], [place] [address] Sodium [Moles/Vol] 137 mmol/L Normal 136-145 [facility] Comment on above: Performed By: #### P 8 #### [facility] [address] [place], [place] [address] CASE MANAGEMon 08-26-2019 CASE MANAGEM HNO ID: [id number] Author: Christina Perez Service: Care Management Author Type: ? Type: Care Mgt Progress Note Filed: 08/26/2019 10:50 AM Note Text: CARE MANAGEMENT PROGRESS NOTE SERVICE DATE: 08/26/2019 SERVICE TIME: 1000 LOS: 5 days IMM Follow Up Copy Given: Yes Copy given to:: Patient Method: In Person SIGNATURE: Christina Perez PATIENT NAME: Elizabeth Modi DATE: August 26, 2019 TIME: 10:50 AM PAGER/CONTACT #: [phone] [facility] CASE MANAGEM HNO ID: [id number] Author: Tami SantiagoRn) YURI Patricio Service: Care Management Author Type: Registered Nurse Type: Care Mgt Progress Note Filed: 08/26/2019 10:17 AM Note Text: CARE MANAGEMENT PROGRESS NOTE SERVICE DATE: 08/26/2019 SERVICE TIME: 10:15 AM LOS: 5 days Chart reviewed. Plan now is for arteriogram likely next week and then possibly bka v aka pending results. Vascular and Ortho follow. Referral to [facility] for AR. Will follow clinical progress. SIGNATURE: Tami Patricio RN PATIENT NAME: Elizabeth Modi DATE: August 26, 2019 TIME: 10:15 AM PAGER/CONTACT #: [phone] [facility] CONSULT PROGon 08-26-2019 CONSULT PROG HNO ID: [id number] Author: Doris Eden Service: Endocrinology Author Type: Physician Type: Consult Progress Note Filed: 08/26/2019 8:09 AM Note Text: ENDOCRINOLOGY CONSULT PROGRESS NOTE SERVICE DATE: 08/26/2019 SERVICE TIME: 8:00 AM Subjective INTERVAL HPI: Pt followed for diabetes mellitus type 2 with complications. Tr from [place]; adm for right foot infection and gangrene; [...] 2019 TIME: 8:09 AM PAGER: [phone] Normal [facility] Hemogram/Diffon 08-26-2019 Abs Immature Grans 0.20 thou/cmm High 0.00-0.05 [facility] Comment on above: Performed By: #### M AG #### [place] [address] Abs Neut (ANC) 6.48 thou/cmm High 1.78-5.38 [facility] Comment on above: Performed By: #### M AG #### [place] [address] Abs. Baso 0.04 thou/cmm Normal 0.01-0.08 [facility] Comment on above: Performed By: #### M AG #### [place] [address] Abs. [place] 0.93 thou/cmm High 0.30-0.82 [facility] Comment on above: Performed By: #### M AG #### [place] [address] Basophils/100 WBC (Bld) 0.4 % Normal A [facility] Comment on above: Performed By: #### M AG #### [place] [address] Eosinophils (Bld) [#/Vol] 0.21 thou/cmm Normal 0.04-0. 54 [facility] Comment on above: Performed By: #### M AG #### [facility] [address] [place], [place] [address] Eosinophils/100 WBC (Bld) 2.1 % Normal [facility] Comment on above: Performed By: #### M AG #### [facility] [address] [place] [address] Erythrocyte distribution width (RBC) [Ratio] 13.3 % Normal 11.6-14.4 [facility] Comment on above: Performed By: #### M AG #### [place] [address] Hematocrit (Bld) [Volume fraction] 32.3 % Low 40.1-51.0 [facility] Comment on above: Performed By: #### M AG #### [place] [address] Hemoglobin (Bld) [Mass/Vol] 10.5 g/dL Low 13.7-17.5 [facility] Comment on above: Performed By: #### M AG #### [place] [address] Immature Grans 2.00 % Normal [facility] Comment on above: Performed By: #### M AG #### [place] [address] Lymphocytes (Bld) [#/Vol] 2.34 thou/cmm Normal 0.84-2. 85 [facility] Comment on above: Performed By: #### M AG #### [facility] [address] [place] [address] Lymphocytes/100 WBC (Bld) 22.9 % Normal [facility] Comment on above: Performed By: #### M AG #### [place] [address] MCH (RBC) [Entitic mass] 28.6 pg Normal 25.7-32.2 [facility] Comment on above: Performed By: #### M AG #### [facility] [address] [place], [place] [address] MCHC (RBC) [Mass/Vol] 32.5 % Normal 32.3-36.5 [facility] Comment on above: Performed By: #### M AG #### [facility] [address] [place], [place] [address] MCV (RBC) [Entitic vol] 88.0 fL Normal 83.2-95.6 A [facility] Comment on above: Performed By: #### M AG #### [facility] [address] [place] [address] Monocytes/100 WBC (Bld) 9.1 % Normal A [facility] Comment on above: Performed By: #### M AG #### [facility] [address] [place] [address] Platelet mean volume (Bld) [Entitic vol] 9.5 fL Normal 8.7-12.0 [facility] Comment on above: Performed By: #### M AG #### [facility] [address] [place] [address] Platelets (Bld) [#/Vol] 474 thou/cmm High 141-365 [facility] Comment on above: Performed By: #### M AG #### [facility] [address] [place] [address] RBC (Bld) [#/Vol] 3.67 mil/cmm Low 4.63-6.08 [facility] Comment on above: Performed By: #### M AG #### [facility] [address] [place] [address] RDW SD 43.1 fl Normal 36.1-45.8 [facility] Comment on above: Performed By: #### M AG #### [facility] [address] [place] [address] Seg Neutrophil 63.5 % Normal [facility] Comment on above: Performed By: #### M AG #### [facility] [address] [place], [place] [address] WBC (Bld) [#/Vol] 10.21 thou/cmm High 4.23-9.07 [facility] Comment on above: Performed By: #### M AG #### [facility] [address] [place] [address] PROGRESSon 08-26-2019 PROGRESS HNO ID: [id number] Author: Sue Bianchi Service: Hospital Medicine Author Type: Physician Type: Progress Notes Filed: 08/26/2019 1:35 PM Note Text: DEPARTMENT OF HOSPITAL MEDICINE PROGRESS NOTE SERVICE DATE: 08/26/2019 SERVICE TIME: 1:34 PM Hospital Medicine/Primary Attending: Sue Bianchi, DO NIGHT AND WEEKEND COVERAGE: After 7pm, please call cross cover pager #[phone] Subjective INTERVAL HPI: Patient seen and examined. 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- cranial nerves 2 to 12 grossly intact, [...] 08/21/191914 vte non-pharmacologic prophylaxis - none indicated (ia,oh) 08/21/191914 activity - mobilize patient ([place], [place]) VTE Prophylaxis: VTE prophylaxis appropriate Disposition: Home with [facility] Plan of care discussed with: Provider, RN, Patient SIGNATURE: Sue Bianchi DO PATIENT NAME: Elizabeth Modi DATE: August 26, 2019 TIME:1:34 PM PAGER/CONTACT #: [phone] [facility] PROGRESS HNO ID: [id number] Author: Tom Prescott DO Service: General Surgery [...] questions or concerns Mon-Fri 6a-5p please page [phone]. After 5pm and on Weekends and Holidays, please page [phone] if in ICU or [phone] if on RNF. Subjective SUBJECTIVE: Patient seen and examined this morning, SARATH. He denies any leg pain. Denies F/C, [...] ICU or 2174 if on RNF. Normal [facility] THERAPY NTon 08-26-2019 THERAPY NT HNO ID: [id number] Author: Maricarmen Babb/Vickie Good Service: Occupational Therapy Author Type: Occupational Therapist Type: Therapy (PT/OT/Speech/Resp) Filed: 08/26/2019 11:15 AM Note Text: Occupational Therapy Treatment SERVICE DATE: 08/26/2019 SERVICE TIME: 919 to 944 ROOM: [id number] Recommended Discharge Disposition: Acute Rehab Justification For [...] and signs-other Interventions Provided: Self Fpc Management (13515);Therapeutic Exercise (24750) Therapeutic Exercise (00655) Treatment Minutes: 10 1 unit Skilled Intervention(s): [...] shrugging shoulders during activity. 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 Pt reported no pain and was agreeable to therapy. 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 [facility] CONSULT [place] 08-25-2019 CONSULT PROG HNO ID: [id number] Author: Doris Eden Service: Endocrinology Author Type: Physician Type: Consult Progress Note Filed: 08/25/2019 9:29 AM Note Text: ENDOCRINOLOGY CONSULT PROGRESS NOTE SERVICE DATE: 08/25/2019 SERVICE TIME: 9:10 AM Subjective INTERVAL HPI: Pt followed for diabetes mellitus type 2 with complications. 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 Pt tolerated well with no pain. Stump with blood clots and vitalized tissue. No evidence of infection. Francine Roberts MD General Surgery, PGY-3 August 25, 2019 8:11 AM [facility] PROGRESSon 08-25-2019 PROGRESS HNO ID: [id number] Author: Sue Bianchi Service: Hospital Medicine Author Type: Physician Type: Progress Notes Filed: 08/25/2019 4:34 PM Note Text: DEPARTMENT OF HOSPITAL MEDICINE PROGRESS NOTE SERVICE DATE: 08/25/2019 SERVICE TIME: 1:10 PM Hospital Medicine/Primary Attending: Sue Bianchi, DO NIGHT AND WEEKEND COVERAGE: After 7pm, please call cross cover pager #[phone] Subjective INTERVAL HPI: Patient seen and examined. 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- cranial nerves 2 to 12 grossly intact, [...] 08/21/191914 vte non-pharmacologic prophylaxis - none indicated (ia,me) 08/21/191914 activity - mobilize patient ([place], [place]) VTE Prophylaxis: VTE prophylaxis appropriate Disposition: Home with [facility] Plan of care discussed with: Provider, RN, Patient SIGNATURE: Sue Bianchi DO PATIENT NAME: Elizabeth Modi DATE: August 25, 2019 TIME:1:10 PM PAGER/CONTACT #: [phone] [facility] PROGRESS HNO ID: [id number] Author: Francine (Cassia Roberts Service: General Surgery Author Type: Resident [...] questions or concerns Mon-Fri 6a-5p please page [phone]. After 5pm and on Weekends and Holidays, please page [phone] if in ICU or [phone] if on RNF. Subjective SUBJECTIVE: Denies leg [...] 0659 08/25/19 07 - 08/26/19 0659 Shift 7934-1094 7230-7882 3272-4735 24 Hour Total 1847-2842 2686-4845 9948-6683 24 Hour Total INTAKE Shift Total OUTPUT [...] ABDOMEN: Soft, non-tender, non-distended EXTREMITIES: R stump jeor wrap in place with unchanged serosang drainage [...] ICU or 2174 if on RNF. Normal [facility] Basic Panelon 08-24-2019 Creatinine [Mass/Vol] 0.76 mg/dL Normal 0.67-1.17 [facility] Comment on above: Result Comment: Use of this assay is not recommended for patients undergoing treatment with phenindione, due to the potential for falsely depressed results. Performed By: #### G LMET #### [facility] [address] [place], [place] [address] Anion gap [Moles/Vol] 10 mmol/L Normal 8-16 [facility] Comment on above: Performed By: #### G LMET #### [address] [address] CO2 [Moles/Vol] 20 mmol/L Low 21-32 [facility] Comment on above: Performed By: #### G LMET #### [facility] [address] [place], [place] [address] Glucose [Mass/Vol] 107 mg/dL High 70-99 [facility] Comment on above: Performed By: #### G LMET #### [facility] [address] [place], [place] [address] Urea nitrogen [Mass/Vol] 12 mg/dL Normal 7-18 [facility] Comment on above: Performed By: #### G LMET #### [facility] [address] [place], [place] [address] Calcium [Mass/Vol] 7.9 mg/dL Low 8.5-10.1 [facility] Comment on above: Performed By: #### G LMET #### [facility] [address] [place], [place] [address] Chloride [Moles/Vol] 105 mmol/L Normal 98-107 [facility] Comment on above: Performed By: #### G LMET #### [facility] [address] [place], [place] [address] Potassium [Moles/Vol] 4.4 mmol/L Normal 3.5-5.1 [facility] Comment on above: Performed By: #### G LMET #### [facility] [address] [place], [place] [address] Sodium [Moles/Vol] 131 mmol/L Low 136-145 [facility] Comment on above: Performed By: #### G LMET #### [facility] [address] [place], [place] [address] CONSULT PROGon 08-24-2019 CONSULT PROG HNO ID: [id number] Author: Hermila Gallegos Service: Endocrinology Author Type: [...] 2019 TIME: 3:12 PM PAGER: [phone] Normal [facility] CONSULT PROG HNO ID: [id number] Author: Martha Ryan (Pharmacist) Service: Pharmacy Author [...] pharmacy if questions. MARTHA RYAN, PHARMACIST Ext: [phone] Normal [facility] Hemogram/Diffon 08-24-2019 Abs Immature Grans 0.19 thou/cmm High 0.00-0.05 [facility] Comment on above: Performed By: #### M AG #### [place] [address] Abs Neut (ANC) 6.15 thou/cmm High 1.78-5.38 [facility] Comment on above: Performed By: #### M AG #### [place] [address] Abs. Baso 0.04 thou/cmm Normal 0.01-0.08 [facility] Comment on above: Result Comment: Smea r scanned; tech agrees with automated differential Performed By: #### M AG #### [place] [address] Abs. [place] 0.75 thou/cmm Normal 0.30-0.82 [facility] Comment on above: Performed By: #### M AG #### [place] [address] Basophils/100 WBC (Bld) 0.4 % Normal A [facility] Comment on above: Performed By: #### M AG #### [place] [address] Eosinophils (Bld) [#/Vol] 0.20 thou/cmm Normal 0.04-0. 54 [facility] Comment on above: Performed By: #### M AG #### [facility] [address] [place], [place] [address] Eosinophils/100 WBC (Bld) 2.2 % Normal [facility] Comment on above: Performed By: #### M AG #### [facility] [address] [place], [place] [address] Immature Grans 2.10 % Normal [facility] Comment on above: Performed By: #### M AG #### [facility] [address] [place] [address] Lymphocytes (Bld) [#/Vol] 1.86 thou/cmm Normal 0.84-2. 85 [facility] [facility] Comment on above: Performed By: #### M AG #### [facility] [address] [place], [place] [address] Lymphocytes/100 WBC (Bld) 20.2 % Normal [facility] Comment on above: Performed By: #### M AG #### [facility] [address] [place], [place] [address] Monocytes/100 WBC (Bld) 8.2 % Normal [facility] Comment on above: Performed By: #### M AG #### [facility] [address] [place], [place] [address] Seg Neutrophil 66.9 % Normal [facility] Comment on above: Performed By: #### M AG #### [address] [address] Erythrocyte distribution width (RBC) [Ratio] 13.3 % Normal 11.6-14.4 [facility] Comment on above: Performed By: #### M AG #### [place] [address] Hematocrit (Bld) [Volume fraction] 36.9 % Low 40.1-51.0 [facility] Comment on above: Performed By: #### M AG #### [place] [address] Hemoglobin (Bld) [Mass/Vol] 11.7 g/dL Low 13.7-17.5 [facility] Comment on above: Performed By: #### M AG #### [facility] [address] [place] [address] MCH (RBC) [Entitic mass] 28.1 pg Normal 25.7-32.2 [facility] Comment on above: Performed By: #### M AG #### [facility] [address] [place] [address] MCHC (RBC) [Mass/Vol] 31.7 % Low 32.3-36.5 [facility] Comment on above: Performed By: #### M AG #### [facility] [address] [place] [address] MCV (RBC) [Entitic vol] 88.7 fL Normal 83.2-95.[address] [facility] Comment on above: Performed By: #### M AG #### [facility] [address] [place] [address] Platelet mean volume (Bld) [Entitic vol] 9.5 fL Normal 8.7-12.0 [facility] Comment on above: Performed By: #### M AG #### [facility] [address] [place] [address] Platelets (Bld) [#/Vol] 428 thou/cmm High 141-365 [facility] Comment on above: Performed By: #### M AG #### [facility] [address] [place] [address] RBC (Bld) [#/Vol] 4.16 mil/cmm Low 4.63-6.08 [facility] Comment on above: Performed By: #### M AG #### [facility] [address] [place] [address] RDW SD 43.4 fl Normal 36.1-45.8 [facility] Comment on above: Performed By: #### M AG #### [facility] [address] [place] [address] WBC (Bld) [#/Vol] 9.20 thou/cmm High 4.23-9.07 [facility] Comment on above: Performed By: #### M AG #### [facility] [address] [place], [place] [address] Magnesium Bloodon 08-24-2019 Magnesium [Mass/Vol] 2.4 mg/dL Normal 1.6-2.6 [facility] Comment on above: Performed By: #### M AG #### [facility] [address] [place], [place] [address] PROGRESSon 08-24-2019 PROGRESS HNO ID: [id number] Author: Sue Bianchi Service: Hospital Medicine Author Type: Physician Type: Progress Notes Filed: 08/24/2019 5:16 PM Note Text: DEPARTMENT OF HOSPITAL MEDICINE PROGRESS NOTE SERVICE DATE: 08/24/2019 SERVICE TIME: 12:40 PM Hospital Medicine/Primary Attending: Sue Bianchi, DO NIGHT AND WEEKEND COVERAGE: After 7pm, please call cross cover pager #[phone] Subjective INTERVAL HPI: Patient seen and examined. 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- cranial nerves 2 to 12 grossly intact, [...] 08/21/191914 vte non-pharmacologic prophylaxis - none indicated (ia,me) 08/21/191914 activity - mobilize patient ([place], [place]) VTE Prophylaxis: VTE prophylaxis appropriate Disposition: Home with [facility] Plan of care discussed with: Provider, RN, Patient SIGNATURE: Sue Bianchi DO PATIENT NAME: Elizabeth Modi DATE: August 24, 2019 TIME:12:40 PM PAGER/CONTACT #: [phone] Normal [facility] PROGRESS HNO ID: [id number] Author: Edy Paredes Service: Infectious Disease Author Type: Physician Type: Progress Notes Filed: 08/24/2019 9:20 AM Note Text: Edy Paredes MD, MS, FACP, FIDSA Division of Infectious Diseses [address] [facility] [address] [place] [address] Office: [phone] INFECTIOUS DISEASE CONSULT PROGRESS NOTE SERVICE DATE: [...] off. SIGNATURE: Edy Paredes MD, MS, FACP, [facility] PATIENT NAME: Elizabeth Modi DATE: August 24, 2019 TIME: 9:16 AM PAGER/CONTACT #: [phone] [facility] PROGRESS HNO ID: [id number] Author: Francine Roberts Service: Vascular Surgery Author [...] questions or concerns Mon-Mon 6a-5p please page [phone]. After 5pm and on Weekends and Holidays, please page [phone] if in ICU or [phone] if on [...] Therapy: Nasal Cannula IANDO: Date 08/23/19699 - 08/24/1965808/24/19 07 - 08/25/19 0659 Shift 0342-7561 4064-4105 3969-3167 24 Hour Total 3267-2190 3991-4565 3590-7786 24 Hour Total INTAKE IV 625 625 OR Crystalloid intake (mL) 250 250 Volume (mL) (lactated ringers infusion) 125 125 Volume (mL) (vancomycin iv piggyback 1.25 g in D5W 250 mL (VANCOCIN)) 250 250 Shift Total 625 625 OUTPUT Urine 903 941 4266 Void (ml) 621 912 1763 Blood 50 50 Estimated Blood loss 50 50 Shift Total 663 146 6798 Weight (kg) 85 85 85 85 85 [...] 3 g in NaCl 0.9% 100 mL MB+/ADD-Delton (UNASYN) 3 g INTRAVENOUS q 6 H [...] ICU or 2174 if on RNF. Normal [facility] Phosphorus Bloodon 0 Phosphate [Mass/Vol] 2.3 mg/dL Low 2.5-4.9 [facility] Comment on above: Performed By: #### G LMET #### [address] [address] THERAPY NTon 08-24-2019 THERAPY NT HNO ID: [id number] Author: Lizeth Cobos Service: Physical Therapy Author Type: Physical Therapist Type: Therapy (PT/OT/Speech/Resp) Filed: 08/24/2019 2:49 PM Note Text: Physical Therapy Evaluation SERVICE DATE: 08/24/2019 SERVICE TIME: 1325 to 1346 ROOM: [id number] Recommended Discharge Disposition: Acute Rehab Recommended Discharge [...] Weakness (generalized) Interventions Provided: Evaluation $ Evaluation-Low (89086) Billed Units: 1 unit History and examination [...] Environment Patient Lives With: Self/Alone 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 Entry To Home: Stairs;With Rail Number [...] August 24, 2019 TIME: 2:43 PM Normal [facility] THERAPY NT HNO ID: [id number] Author: Susan SantiagoOtr/Vickie Miner Service: Occupational Therapy Author Type: Occupational Therapist Type: Therapy (PT/OT/Speech/Resp) Filed: 08/24/2019 1:07 PM Note Text: Occupational Therapy Evaluation SERVICE DATE: 08/24/2019 SERVICE TIME: 1133 to 1208 ROOM: [place] [address] Recommended Discharge Disposition: Acute Rehab Justification For [...] and signs-other Interventions Provided: Evaluation;Self Fpc Management (07635) $ Evaluation-Moderate (56845) Billed Units: 1 unit OT Evaluation Moderate [...] thyroid, HTN, DM, claudication Self Fpc Management (30960) Treatment Minutes: 10 1 unit Skilled Intervention(s): [...] lower extremity. 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 Patient agreeable to therapy. I have no pain at all." Denies pain before/after transfers. 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) Entry To Home: Stairs;With Rail(bilat rails) [...] August 24, 2019 TIME: 1:01 PM [facility] ANES [place] 08-23-2019 ANES POST HNO ID: [id number] Author: Sj Huizar Service: Anesthesiology Author Type: [...] TIME: 11:24 AM PAGER/CONTACT #: [phone] [facility] ANES PREOPon 08-23-2019 ANES PREOP HNO ID: [id number] Author: Sj Huizar Service: Anesthesiology Author Type: [...] Units SUBCUTANEOUS q 12 H Mohammad F Buddhist 5,000 Units at 08/22/19 0807 - [MAR Hold due to Transfer] aluminum-magnesium hydroxide-simethicone 200-200-20 mg/5 mL 30 mL (MAALOX,MYLANTA,MAG-AL PLUS) 30 mL ORAL DAILY PRN Mohammad F Buddhist - [MAR Hold due to Transfer] ondansetron 4 mg tab(s) (ZOFRAN) 4 mg ORAL q 6 H PRN Mohammad F Buddhist Or - [MAR Hold due to Transfer] ondansetron (PF) 4 mg injection (ZOFRAN) 4 mg INTRAVENOUS q 6 H PRN Mohammad F Buddhist - [MAR Hold due to Transfer] polyethylene glycol 3350 17 g packet (MIRALAX, GLYCOLAX) 17 g ORAL DAILY PRN Mohammad F Buddhist - [MAR Hold due to Transfer] docusate sodium 100 mg cap(s) (COLACE) 100 mg ORAL BID PRN Mohammad F Buddhist - [MAR Hold due to Transfer] magnesium hydroxide 400 mg/5 mL 30 mL (MOM) 30 mL ORAL DAILY PRN Mohammad F Buddhist - [MAR Hold due to Transfer] bisacodyl 10 mg suppository (DULCOLAX) 10 mg RECTAL DAILY PRN Mohammad F Buddhist - [MAR Hold due to Transfer] acetaminophen 650 mg tab(s) (TYLENOL) 650 mg ORAL q 6 H PRN Mohammad F Buddhist - [MAR Hold due to Transfer] atorvastatin 40 mg tab(s) (LIPITOR) 40 mg ORAL DAILY Mohammad F Buddhist 40 mg at 08/22/192009 - [MAR Hold due to Transfer] lisinopril 10 mg tab(s) (ZESTRIL, PRINIVIL) 10 mg ORAL DAILY Mohammad F Buddhist 10 mg at 08/22/19 0807 - [MAR Hold due to Transfer] levothyroxine 25 mcg tab(s) (SYNTHROID) 25 mcg ORAL DAILY Mohammad F Buddhist 25 mcg at 08/22/19 0600 - [MAR Hold due to Transfer] insulin lispro pen (rapid acting) (HumaLOG KWIKPEN) SUBCUTANEOUS w MEALS AND HS Mohammad F Buddhist 1 Units at 08/22/192128 - [MAR Hold due to Transfer] dextrose 40 % 15 g 15 g ORAL PRN Mohammad F Buddhist Or - [MAR Hold due to Transfer] glucagon 1 mg injection (GLUCAGEN) 1 mg INTRAMUSCULAR PRN Mohammad F Buddhist Or - [MAR Hold due to Transfer] dextrose 50% in water 25 mL syringe 12.5 g INTRAVENOUS PRN Mohammad F Buddhist - [MAR Hold due to Transfer] vancomycin iv piggyback 1.25 g in D5W 250 mL (VANCOCIN) 1.25 g INTRAVENOUS q 12 HR Mohammad F Buddhist 250 mL/hr at 08/22/192009 1.25 g at 08/22/192009 - [MAR Hold due to Transfer] vancomycin dosing and monitoring per pharmacy OTHER As Directed Mohammad F Buddhist - [MAR Hold due to Transfer] piperacillin-tazobacta m iv piggyback 3.375 g in dextrose (iso-osmotic) 50 mL (ZOSYN) 3.375 g INTRAVENOUS q 6 H Mohammad F Buddhist 100 mL/hr at 08/23/19 0549 3.375 g at 08/23/19 0549 - [MAR Hold due to Transfer] clindamycin iv piggyback 600 mg in D5W 50 mL (CLEOCIN) 600 mg INTRAVENOUS q 6 H Mohammad F Buddhist 100 mL/hr at 08/23/19 0549 600 mg [...] August 23, 2019 TIME: 8:32 AM CSN: [id number] [facility] BRIEF OP NOTon 08-23-2019 BRIEF OP NOT HNO ID: [id number] Author: Jennifer Crooks Service: General Surgery Author Type: Resident Type: Brief Op Note Filed: 08/23/2019 9:35 AM Note Text: Attestation signed by Gordo Figueroa at 08/23/2019 10:01 AM I was present for the entire procedure and performed the procedure with the assistance of the resident and the assistant accounting manager BRIEF OP / PROCEDURE NOTE LOG ID: [id number] Surgery/Procedure Date: 08/23/2019 Incision/Procedure Start Time: 8:42 AM Incision Close/Procedure End Time: 9:04 AM Surgeon(s)/Procedurali st(s) and Lithopone Charger(s): Surgeon(s) and Role: * Gordo Figueroa - [...] 2019 TIME: 9:29 AM PAGER/CONTACT #: Normal [facility] Basic Panelon 08-23-2019 Creatinine [Mass/Vol] 0.88 mg/dL Normal 0.67-1.17 [facility] Comment on above: Result Comment: Use of this assay is not recommended for patients undergoing treatment with phenindione, due to the potential for falsely depressed results. Performed By: #### P 8 #### [address] [address] Glucose [Mass/Vol] 96 mg/dL Normal 70-99 [facility] Comment on above: Performed By: #### P 8 #### [address] [address] Anion gap [Moles/Vol] 12 mmol/L Normal 8-16 [facility] Comment on above: Performed By: #### P 8 #### [facility] [address] [place], [place] [address] Calcium [Mass/Vol] 7.2 mg/dL Low 8.5-10.1 [facility] Comment on above: Performed By: #### P 8 #### [address] [address] CO2 [Moles/Vol] 22 mmol/L Normal 21-32 [facility] Comment on above: Performed By: #### P 8 #### [address] [address] Urea nitrogen [Mass/Vol] 15 mg/dL Normal 7-18 [facility] Comment on above: Performed By: #### P 8 #### [facility] [address] [place], [place] [address] Chloride [Moles/Vol] 103 mmol/L Normal 98-107 [facility] Comment on above: Performed By: #### P 8 #### [facility] [address] [place], [place] [address] Potassium [Moles/Vol] 3.8 mmol/L Normal 3.5-5.1 [facility] Comment on above: Performed By: #### P 8 #### [facility] [address] [place], [place] [address] Sodium [Moles/Vol] 133 mmol/L Low 136-145 [facility] Comment on above: Performed By: #### P 8 #### [facility] [address] [place], [place] [address] CASE MGT INIT ASSESon 2019 CASE MGT INIT [facility] HNO ID: [id number] Author: Tami (Rn) YURI Patricio Service: Care Management Author Type: Registered Nurse Type: Care Mgt Initial Assessment Filed: 08/23/2019 3:20 PM Note Text: CARE MANAGEMENT: ASSESSMENT AND DISCHARGE PLAN SERVICE DATE: August 23, 2019 SERVICE TIME: 3:18 PM PRIMARY CARE PHYSICIAN: No primary care provider on file. Phone: None ADMISSION STATUS: Inpatient Needs Prior to Discharge: OT/PT Evaluation;Discharge Transportation;[facility] Facility;Precertificat ion MEDICAL: [facility] Patient/Resident Care Associate Stated Goals: To have reduction in symptoms;To improve my functional status Health Insurance: [place] [facility] Issues Impacting Discharge Plan: None Last Discharge Date: N/A Is this Within the Past 30 days? Last discharge within 30 days: No Advance Directive: Current Advance Directive: None Software Project Lead Attempted to Assist with AD Completion: Yes [...] to the patient:: Self Name of Informant: Gerri Lambert Functional Status: Independent Does Patient Currently Receive [...] Mostly I feel financially burdened by my [id number] expenses for my prescription medication:: 0 - Agree Somewhat Risk Score: 0 Patient is categorized as: Low risk < 2 Are you interested in bedside delivery of your medications? No Is Patient Psychosocially Complex?: No ASSESSMENT AND PLAN: Medical Needs: Medical Needs: None Psychosocial Needs: Psychosocial Needs: None FREEDOM OF CHOICE EXPLAINED: [place] of Choice Given: Yes Level of Care Discussed: Inpatient Rehab Facility Financial Disclosure Provided: Yes Financial Disclosure Comments: [facility]: [facility] POTENTIAL TRANSITION PLANS Rehab Facility Spoke with pt at the bedside. 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 Pt states that he has a PCP in [place]. Pt is s/p right foot amp. Anticipate AR needs at d/c. Await PT/OT evals. Pt would like [facility] rehab- referral sent. Pt will need auth and likely transport at d/c. Will follow. SIGNATURE: Tami Patricio RN PATIENT NAME: Elizabeth Modi DATE: August 23, 2019 TIME: 3:18 PM PAGER/CONTACT #: [phone] [facility] CONSULTon 08-23-2019 CONSULT HNO ID: [id number] Author: Doris Eden Service: Endocrinology Author Type: Physician Type: Consults Filed: 08/23/2019 1:21 PM Note Text: I have reviewed the patient's medical record in detail. Consult note dictated. See orders for Lantus/oral agents. Can use OTC Novolin N at home. Doris Eden MD. [facility] CONSULT HNO ID: [id number] Author: Doris Eden Service: Endocrinology Author Type: Physician Type: Consults Filed: 08/25/2019 9:16 AM Note Text: [facility] - Consultation PATIENT NAME: ELIZABETH MODI CSN: [id number] DATE OF : 1940 SEX/AGE: M/79 PATIENT TYPE: I HOSP [facility]: [facility] LOCATION: [id number] DATE OF SERVICE: 08/23/2019 TIME OF SERVICE: 01:15 PM REFERRING PHYSICIAN: Dexter Chávez MD REASON FOR CONSULTATION: Uncontrolled diabetes. HISTORY OF PRESENT ILLNESS: The patient is a 79-year-old male, who was transferred from [facility] with gangrene off right foot toes. [...] Lantus 10. Doris Eden MD Endocrinology SM:modl /[id number] [facility] CONSULT PROGon 08-23-2019 CONSULT PROG HNO ID: [id number] Author: Isac Navarro (Pharmacist) Service: Pharmacy Author [...] have any questions, [place] [phone]. Age: [age] year old Allergies: ALLERGIES No [...] Value 08/23/2019 1830 22.0 BHUPINDER CHEEK Normal [facility] CONSULT PROG HNO ID: [id number] Author: Paulo Fleming Service: Infectious Disease Author Type: Physician Type: [...] for Today's Visit: Most recent labs Paulo Fleming MD Infectious Disease Respiratory [place] Pager: [phone] August 23, 2019 Normal [facility] Hemogram/Diffon 08-23-2019 Abs Immature Grans 0.19 thou/cmm High 0.00-0.05 [facility] Comment on above: Performed By: #### M AG #### [place] [address] Abs Neut (ANC) 15.52 thou/cmm High 1.78-5.38 [facility] Comment on above: Performed By: #### M AG #### [place] [address] Abs. Baso 0.04 thou/cmm Normal 0.01-0.08 [facility] Comment on above: Result Comment: Smea r scanned; tech agrees with automated differential Performed By: #### M AG #### [place] [address] Abs. [place] 1.45 thou/cmm High 0.30-0.82 [facility] Comment on above: Performed By: #### M AG #### [place] [address] Basophils/100 WBC (Bld) 0.2 % Normal [facility] Comment on above: Performed By: #### M AG #### [facility] [address] [place], [place] [address] Eosinophils (Bld) [#/Vol] 0.21 thou/cmm Normal 0.04-0. 54 [facility] Comment on above: Performed By: #### M AG #### [facility] [address] [place], [place] [address] Eosinophils/100 WBC (Bld) 1.1 % Normal [facility] Comment on above: Performed By: #### M AG #### [facility] [address] [place], [place] [address] Immature Grans 1.00 % Normal [facility] Comment on above: Performed By: #### M AG #### [facility] [address] [place], [place] [address] Lymphocytes (Bld) [#/Vol] 1.39 thou/cmm Normal 0.84-2. 85 [facility] Comment on above: Performed By: #### M AG #### [facility] [address] [place], [place] [address] Lymphocytes/100 WBC (Bld) 7.4 % Normal [facility] Comment on above: Performed By: #### M AG #### [facility] [address] [place], [place] [address] Monocytes/100 WBC (Bld) 7.7 % Normal [facility] Comment on above: Performed By: #### M AG #### [facility] [address] [place], [place] [address] Seg Neutrophil 82.6 % Normal [facility] Comment on above: Performed By: #### M AG #### [facility] [address] [place], [place] [address] Erythrocyte distribution width (RBC) [Ratio] 13.2 % Normal 11.6-14.4 [facility] Comment on above: Performed By: #### M AG #### [facility] [address] [place], [place] [address] Hematocrit (Bld) [Volume fraction] 31.0 % Low 40.1-51.0 [facility] Comment on above: Performed By: #### M AG #### [facility] [address] [place] [address] Hemoglobin (Bld) [Mass/Vol] 10.2 g/dL Low 13.7-17.5 [facility] Comment on above: Performed By: #### M AG #### [facility] [address] [place] [address] MCH (RBC) [Entitic mass] 28.7 pg Normal 25.7-32.2 [facility] Comment on above: Performed By: #### M AG #### [facility] [address] [place] [address] MCHC (RBC) [Mass/Vol] 32.9 % Normal 32.3-36.5 [facility] Comment on above: Performed By: #### M AG #### [place] [address] MCV (RBC) [Entitic vol] 87.1 fL Normal 83.2-95.[address] [facility] Comment on above: Performed By: #### M AG #### [place] [address] Platelet mean volume (Bld) [Entitic vol] 9.6 fL Normal 8.7-12.0 [facility] Comment on above: Performed By: #### M AG #### [place] [address] Platelets (Bld) [#/Vol] 421 thou/cmm High 141-365 [facility] Comment on above: Performed By: #### M AG #### [place] [address] RBC (Bld) [#/Vol] 3.56 mil/cmm Low 4.63-6.08 [facility] Comment on above: Performed By: #### M AG #### [place] [address] RDW SD 42.0 fl Normal 36.1-45.8 [facility] Comment on above: Performed By: #### M AG #### [place] [address] WBC (Bld) [#/Vol] 18.79 thou/cmm High 4.23-9.07 [facility] Comment on above: Performed By: #### M AG #### [place] [address] Hgb A1con 08-23-2019 HbA1c (Bld) [Mass fraction] 9.8 % High 4.2-6.3 [facility] Comment on above: Result Comment: Meth od is National Glycohemoglobin Standardization Program (NGSP) compliant. Performed By: #### M AG #### [place] [address] HbA1c (Bld) [Mass fraction] 235 mg/dl Normal [facility] Comment on above: Performed By: #### M AG #### [place] [address] MRSA Screenon 08-23-2019 MRSA DNA ARIELLE+probe Ql (Unsp spec) Test performed at [facility] No MRSA detected. Normal [facility] Comment on above: Performed By: #### F ERR #### [place] [address] Magnesium Bloodon 08-23-2019 Magnesium [Mass/Vol] 0.9 mg/dL Critically low 1.6-2.6 [facility] Comment on above: Performed By: #### M AG #### [place] [address] NURSING PROGon 08-23-2019 NURSING PROG HNO ID: [id number] Author: Karl SantiagoRn) YURI Russell Service: Nursing Author Type: Registered Nurse Type: Nursing Progress Note Filed: 08/23/2019 9:27 AM Note Text: Fall risk protocol initiated. Fall risk wrist band applied and yellow sock applied to left foot. SR up x2. Call light in reach. Urinal offered. Normal [facility] NURSING PROG HNO ID: [id number] Author: Marita SantiagoRn) YURI Aponte Service: Nursing Author Type: Registered Nurse Type: Nursing Progress Note Filed: 08/23/2019 8:09 AM Note Text: Tech here to take pt to presurgery unit . Pt showing no signs of distress voicing no complaints. Pt taken via cart to presurgery unit Normal [facility] NURSING PROG HNO ID: [id number] Author: Marita (Rn) YURI Aponte Service: Nursing Author Type: Registered Nurse Type: Nursing Progress Note Filed: 08/23/2019 8:07 AM Note Text: Report given to presurg RN. Daughter Margaret notified by phone that pt would be going to surgery soon. Daughter states she is"on her way". Daughter informed on phone that pt would probably be in surgery when she gets here. Daughter states ubderstanding Normal [facility] NURSING PROG HNO ID: [id number] Author: Marita SantiagoRn) YURI Aponte Service: Nursing Author Type: Registered Nurse Type: Nursing Progress Note Filed: 08/23/2019 8:11 AM Note Text: Dr. Figueroa into see pt. Dr. Figueroa informing pt that surgery has been moved up to this morning. Pt states understanding. Normal [facility] OPERATIVE NOon 08-23-2019 OPERATIVE NO HNO ID: [id number] Author: Gordo Figueroa Service: Vascular Surgery Author Type: Physician Type: Operative Report Filed: 08/23/2019 1:07 PM Note Text: [facility] - Operative Report ELIZABETH MODI : 1940 AGE: 79. SEX: M PATIENT TYPE: I HOSP SVC: ORCA LOCATION: [facility] ATTENDING PHYSICIAN: Ara Singer M.D. CSN NUMBER: [id number] DATE OF SURGERY/PROCEDURE: 08/23/2019 INCISION/PROCEDURE START TIME: 8:42 AM INCISION CLOSE/PROCEDURE END TIME: 9:04 AM PREOPERATIVE DIAGNOSIS: Gangrenous changes of the right foot with gas in the subcutaneous tissues. POSTOPERATIVE DIAGNOSIS: Gangrenous changes of the right foot with gas in the subcutaneous tissues. SURGEON: Gordo Figueroa MD RADIOLOGY SERVICES MANAGER: 1. Jennifer Crooks M.D. 2. Irvin Walker, assistant accounting manager. SURGERY/PROCEDURE: Guillotine right above ankle/below-knee amputation. [...] recovery area in stable condition. MD DESMOND Ley:[id number] /[id number] Normal [facility] PROGRESSon 08-23-2019 PROGRESS HNO ID: [id number] Author: Sue Bianchi Service: Hospital Medicine Author Type: Physician Type: Progress Notes Filed: 08/23/2019 3:48 PM Note Text: DEPARTMENT OF HOSPITAL MEDICINE PROGRESS NOTE SERVICE DATE: 08/23/2019 SERVICE TIME: 12:20 PM Hospital Medicine/Primary Attending: Sue Bianchi, DO NIGHT AND WEEKEND COVERAGE: After 7pm, please call cross cover pager #[phone] Subjective INTERVAL HPI: Patient seen and examined. 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- cranial nerves 2 to 12 grossly intact, [...] 08/21/191914 vte non-pharmacologic prophylaxis - none indicated (ia,me) 08/21/191914 activity - mobilize patient ([place]) VTE Prophylaxis: VTE prophylaxis appropriate Disposition: Home with [facility] Plan of care discussed with: Provider, RN, Patient SIGNATURE: Sue Bianchi DO PATIENT NAME: Elizabeth Modi DATE: August 23, 2019 TIME:12:20 PM PAGER/CONTACT #: [phone] [facility] PROGRESS HNO ID: [id number] Author: Tom Prescott DO Service: General Surgery [...] questions or concerns Mon-Fri 6a-5p please page [phone]. After 5pm and on Weekends and Holidays, please page [phone] if in ICU or [phone] if on RNF. Subjective SUBJECTIVE: Patient seen [...] 08/22/19699 - 08/23/1965808/23/19699 - 08/24/19 0659 Shift 1823-3163 7643-7820 5842-8731 24 Hour Total 3941-4653 6847-7123 3219-6833 24 Hour Total INTAKE PO 240 240 PO 240 240 Shift Total 240 240 OUTPUT Urine 500 941 483 3297 Void (ml) 500 239 687 7702 Shift Total 500 981 943 6126 Weight (kg) 85 85 85 85 85 [...] g 15 g ORAL PRN Or - [AUG Hold due to Transfer] glucagon 1 mg injection (GLUCAGEN) 1 mg INTRAMUSCULAR PRN Or - [AUG Hold due to Transfer] dextrose 50% in [...] and plan discussed with attending: Dr. Figueroa, monotype machinist for Dr. Parmar SIGNATURE: Tom Prescott DO PATIENT NAME: Elizabeth Modi DATE: August 23, 2019 TIME: 8:02 AM Vascular AND Thoracic Surgery Service Pager: For questions or concerns Mon-Fri 6a-5p please page [phone]. After 5pm and on Weekends and Holidays, please page [phone] if in ICU or [phone] if on RNF. Normal [facility] PROGRESS HNO ID: [id number] Author: Cayetano (Cassia Zapata MD Service: Orthopaedic Surgery Author Type: [...] 08/23/19 TIME: 6:27 AM PAGER/CONTACT #: [phone] [facility] PROGRESS HNO ID: [id number] Author: Tom Prescott DO Service: General Surgery [...] ICU or 2174 if on RNF. Normal [facility] Phosphorus Bloodon 0 Phosphate [Mass/Vol] 2.1 mg/dL Low 2.5-4.9 [facility] Comment on above: Performed By: #### M AG #### [place] [address] Vancomycin,Randomon 08-23-19 20 INR Coag (Bld) [Relative time] 22.0 mg/L Normal [facility] Comment on above: Result Comment: Trou gh 10.0-20.0 mg/L Peak 18.0-40.0 mg/L Performed By: #### C _ANA #### [place] [address] CONSULTon 08-22-2019 CONSULT HNO ID: [id number] Author: Paulo Fleming Service: Infectious Disease Author Type: Physician Type: [...] no longer doing that Employment: work with [employer] CURRENT ANTIBIOTICS: Zosyn Clindamycin vancomycin Current other [...] the care of this patient. SIGNATURE: Paulo Fleming MD PATIENT NAME: Elizabeth Modi DATE: August 22, 2019 TIME: 1:42 PM PAGER/CONTACT #: [phone] [facility] CONSULT HNO ID: [id number] Author: Yadi Badillo Service: Orthopaedic Surgery Author Type: Physician Type: Consults Filed: 08/22/2019 6:41 PM Note Text: ORTHOPAEDIC SURGERY CONSULT Pt: ELIZABETH MODI Date of Consultation: 08/22/2019 Physician Consulted: Dr. Badillo Reason for Consultation: Necrotic foot HPI: 79 year old male presented to [facility] on 08/21/2019 with complaints of changes [...] August 22, 2019 Time: 6:32 PM Normal [facility] CONSULT HNO ID: [id number] Author: Ana Luisa Crooks Service: General Surgery [...] questions or concerns Mon-Fri 6a-5p please page [phone]. After 5pm and on Weekends and Holidays, please page [phone] if in ICU or [phone] if on RNF. Service date: 08/22/2019 Service time: 4:01 AM Reason for consult: foot wounds Nature of consult: routine Subjective HPI Mr. Modi is a 79 year old male with necrotic L foot. Patient reports that he has only noticed this over the last week. Initially presented to [facility] for this reason and was transferred to [facility] for care. Denies pain and states [...] ICU or 2174 if on RNF. Normal [facility] CONSULT PROGon 08-22-2019 CONSULT PROG HNO ID: [id number] Author: Adali Murry Service: Wound Care Team Author Type: Nurse Specialist Type: Consult Progress Note Filed: 08/22/2019 11:19 AM Note Text: WOUND CARE CONSULT ADMISSION SPECIALIST NOTE SERVICE DATE: 08/22/2019 SERVICE TIME: 09 TIME SPENT (minutes): 30 REASON FOR CONSULT: Eval R foot necrosis/wound CHIEF COMPLAINT: c/o necrotic toes and tissue to R foot. Subjective HISTORY OF PRESENT ILLNESS: Mr. 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 Photos are uploaded by the wound rn coronary care unit and may not be immediately available for viewing. Contact the wound and ostomy care department with questions. SIGNATURE: Adali Murry APRN.[employer]BER PATIENT NAME: Elizabeth Modi DATE: August 22, 2019 TIME: 11:03 AM CONTACT#: [id number] [facility] CONSULT PROG HNO ID: [id number] Author: Jose Walton (Pharmacist) Service: Pharmacy Author [...] have any questions, please contact Pharmacy at [phone]. Age: [age] year old Allergies: ALLERGIES No [...] results found for: PEGGY Walton, Pharmacist Pager: [phone] Normal [facility] Comprehensive Panelon 2019 ALP [Catalytic activity/Vol] 107 U/L Normal 45-117 [facility] Comment on above: Performed By: #### C _ANA #### [place] [address] Bilirubin [Mass/Vol] 0.5 mg/dL Normal 0.2-1.0 [facility] Comment on above: Result Comment: Use of this assay is not recommended for patients undergoing treatment with eltrombopag due to the potential for falsely elevated results. Performed By: #### C _ANA #### [facility] [address] [place], [place] [address] Protein [Mass/Vol] 6.4 g/dL Normal 6.4-8.2 [facility] Comment on above: Performed By: #### C _ANA #### [facility] [address] [place], [place] [address] ALT [Catalytic activity/Vol] 73 U/L Normal 12-78 [facility] Comment on above: Performed By: #### C _ANA #### [facility] [address] [place], [place] [address] AST [Catalytic activity/Vol] 81 U/L High 15-37 [facility] Comment on above: Performed By: #### C _ANA #### [facility] [address] [place], [place] [address] Creatinine [Mass/Vol] 0.95 mg/dL Normal 0.67-1.17 [facility] Comment on above: Result Comment: Use of this assay is not recommended for patients undergoing treatment with phenindione, due to the potential for falsely depressed results. Performed By: #### C _ANA #### [facility] [address] [place], [place] [address] Albumin [Mass/Vol] 1.7 g/dL Low 3.4-5.0 [facility] Comment on above: Performed By: #### C _ANA #### [facility] [address] [place], [place] [address] Anion gap [Moles/Vol] 12 mmol/L Normal 8-16 [facility] Comment on above: Performed By: #### C _ANA #### [facility] [address] [place], [place] [address] Calcium [Mass/Vol] 7.1 mg/dL Low 8.5-10.1 [facility] Comment on above: Performed By: #### C _ANA #### [facility] [address] [place], [place] [address] CO2 [Moles/Vol] 21 mmol/L Normal 21-32 [facility] Comment on above: Performed By: #### C _ANA #### [facility] [address] [place], [place] [address] Glucose [Mass/Vol] 218 mg/dL High 70-99 [facility] Comment on above: Performed By: #### C _ANA #### [facility] [address] [place], [place] [address] Urea nitrogen [Mass/Vol] 31 mg/dL High 7-18 [facility] Comment on above: Performed By: #### C _ANA #### [facility] [address] [place], [place] [address] Chloride [Moles/Vol] 104 mmol/L Normal 98-107 [facility] Comment on above: Performed By: #### C _ANA #### [address] [address] Potassium [Moles/Vol] 4.1 mmol/L Normal 3.5-5.1 [facility] Comment on above: Performed By: #### C _ANA #### [address] [address] Sodium [Moles/Vol] 133 mmol/L Low 136-145 [facility] Comment on above: Performed By: #### C _ANA #### [address] [address] Cult and Smr CAROLINE and AERon 0 08-22-2019 Cult and Smr CAROLINE and AER Test performed at [facility] Rare Mixed skin javier. Moderate Mixed anaerobic javier. No Bacteroides fragilis group isolated. No Clostridium perfringens isolated. Many Gram positive cocci No WBC seen Rare Squamous epithelial cells Normal [facility] Comment on above: Performed By: #### C _ANA #### [address] [address] Ferritinon 08-22-2019 Ferritin [Mass/Vol] 1342.20 ng/mL High 26.00-3 88.0 0 [facility] Comment on above: Performed By: #### F ERR #### [address], [place] [address] Folateon 08-22-2019 Folate 3.80 ng/mL Normal 3.10-17.50 [facility] Comment on above: Performed By: #### P 8 #### [facility] [address] [place] [address] Hemogramon 08-22-2019 Erythrocyte distribution width (RBC) [Ratio] 13.2 % Normal 11.6-14.4 [facility] Comment on above: Performed By: #### F ERR #### [facility] [address] [place] [address] Hematocrit (Bld) [Volume fraction] 28.4 % Low 40.1-51.0 [facility] Comment on above: Performed By: #### F ERR #### [facility] [address] [place] [address] Hemoglobin (Bld) [Mass/Vol] 9.4 g/dL Low 13.7-17.5 [facility] Comment on above: Performed By: #### F ERR #### [facility] [address] [place] [address] MCH (RBC) [Entitic mass] 28.7 pg Normal 25.7-32.2 [facility] Comment on above: Performed By: #### F ERR #### [facility] [address] [place] [address] MCHC (RBC) [Mass/Vol] 33.1 % Normal 32.3-36.5 [facility] Comment on above: Performed By: #### F ERR #### [facility] [address] [place] [address] MCV (RBC) [Entitic vol] 86.9 fL Normal 83.2-95.[address] [facility] Comment on above: Performed By: #### F ERR #### [facility] [address] [place] [address] Platelet mean volume (Bld) [Entitic vol] 9.7 fL Normal 8.7-12.0 [facility] Comment on above: Performed By: #### F ERR #### [place] [address] Platelets (Bld) [#/Vol] 380 thou/cmm High 141-365 [facility] Comment on above: Performed By: #### F ERR #### [facility] [address] [place] [address] RBC (Bld) [#/Vol] 3.27 mil/cmm Low 4.63-6.08 [facility] Comment on above: Performed By: #### F ERR #### [place] [address] RDW SD 41.6 fl Normal 36.1-45.8 [facility] Comment on above: Performed By: #### F ERR #### [place] [address] WBC (Bld) [#/Vol] 19.76 thou/cmm High 4.23-9.07 [facility] Comment on above: Performed By: #### F ERR #### [place] [address] Iron % Saturationon 08-22-19 20 Iron % Saturation 15 % Low 20-55 [facility] Comment on above: Performed By: #### M AG #### [place] [address] Iron Binding Cap. 150 ug/dL Low 250-450 [facility] Comment on above: Performed By: #### M AG #### [place] [address] Iron Serum 23 ug/dL Low 65-175 [facility] Comment on above: Performed By: #### M AG #### [place] [address] MRI FOOT/TOES WO IVCON RTon 08-22-2019 MRI FOOT/TOES WO IVCON RT * * *Final Rep ort* * * DATE OF EXAM: Aug 22 2019 12:23PM [facility] 0195 - MRI FOOT/TOES WO IVCON RT [...] be reactive or related to early osteomyelitis. Supervisor Operations: ONEL Transcribe Date/Time: Aug 22 2019 12:47P Dictated by : PRISCILA RUELAS MD This examination was interpreted and the report reviewed and electronically signed by: PRISCILA RUELAS MD on Aug 22 2019 1:06PM [facility] NURSING PROGon 08-22-2019 NURSING PROG HNO ID: [id number] Author: Marita (Rn) YURI Aponte Service: Nursing Author Type: Registered Nurse Type: Nursing Progress Note Filed: 08/22/2019 2:17 PM Note Text: Dr. Parmar into see pt. Pt to be scheduled for angiogram tomorrow. Pt states understanding of procedure Normal [facility] NUTRITIONon 08-22-2019 NUTRITION HNO ID: [id number] Author: Marisol Zimmerman) ALEIDA Falcon Service: Nutrition [...] of fat/muscle stores;Patient/family self-report Estimated kilocalorie needs: 3177-9363 Calorie Calculation Method: 30-35 kcals/kg Estimated protein [...] Inflammation: Hyperglycemia;Hypoalbu minemia;Imaging studies SIGNATURE: Kacie Marquez Glueline Worker PATIENT NAME: Elizabeth Modi DATE: August 22, 2019 TIME: 2:27 PM PAGER: [phone] Normal [facility] PROGRESSon 08-22-2019 PROGRESS HNO ID: [id number] Author: Sue Bianchi Service: Hospital Medicine Author Type: Physician Type: Progress Notes Filed: 08/22/2019 3:29 PM Note Text: DEPARTMENT OF HOSPITAL MEDICINE PROGRESS NOTE SERVICE DATE: 08/22/2019 SERVICE TIME: 2:32 PM Hospital Medicine/Primary Attending: Sue Bianchi, DO NIGHT AND WEEKEND COVERAGE: After 7pm, please call cross cover pager #[phone] Subjective INTERVAL HPI: Patient seen and examined. 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- cranial nerves 2 to 12 grossly intact, [...] 08/21/191914 vte non-pharmacologic prophylaxis - none indicated (ia,me) 08/21/191914 activity - mobilize patient ([place], [place]) VTE Prophylaxis: VTE prophylaxis appropriate Disposition: Home with [facility] Plan of care discussed with: Provider, RN, Patient SIGNATURE: Sue Bianchi DO PATIENT NAME: Elizabeth Modi DATE: August 22, 2019 TIME: 2:32 PM PAGER/CONTACT #: [phone] Normal [facility] US ARTERIAL PVR LOWERon US ARTERIAL PVR LOWER * * *Final Report* * * DATE OF EXAM: Aug 22 2019 10:00AM A2U 1107 - US ARTERIAL PVR LOWER / PROCEDURE REASON: necrotic right foot * * * * Physician Interpretation * * * * Non-Invasive Vascular Laboratory [facility] Lower Extremity Arterial Physiology Study [...] Interpreting physician: Ryan Allen MD Final RP Supervisor Operations: RICHARD Transcribe Date/Time: Aug 22 2019 9:04A Dictated by : RYAN ALLEN MD This examination was interpreted and the report reviewed and electronically signed by: RYAN ALLEN MD on Aug 22 2019 11:41AM EST Normal [facility] Vitamin B12on 08-22-2019 Cobalamin (Vitamin B12) [Mass/Vol] 944 pg/mL Normal 193-986 [facility] Comment on above: Performed By: #### P 8 #### [place] [address] CONSULT PROGon 08-21-2019 CONSULT PROG HNO ID: [id number] Author: Rahat Lemus (Pharmacist) Service: Pharmacy Author Type: Pharmacist Type: Consult Progress Note Filed: 08/21/2019 9:20 PM Note Text: Renal Dose Monitoring 1. Estimated CrCl: 52 (calculated from previous lab reported from of 1.2 and using IBW) 2. Recommendations: Zosyn 3.375g Dose:No Change Frequency:Increase frequency to Q6H - Rationale: Patient CrCl is greater than 40 and being infused over 30 minutes Pharmacy [phone] [facility] CONSULT PROG HNO ID: [id number] Author: Rahat Lemus (Pharmacist) Service: Pharmacy Author [...] [place] questions[place] [phone]. Age: [age] year old Allergies: ALLERGIES No [...] results found for: PEGGY LEMUS, PHARMACIST Normal [facility] HISTORY PHYSICALon 0 HISTORY PHYSICAL HNO ID: [id number] Author: Karyna Perez Service: Hospital Medicine Author [...] After 7pm, please call cross cover pager #[phone] Subjective CHIEF COMPLAINT / REASON FOR ADMISSION: Right foot gangrene HPI: This is a 79 year old male has a past medical history of DM (diabetes mellitus) (HCC), Dyslipidemia, HTN (hypertension), and Hypothyroidism. sent as a transfer from [facility] for blackish coloration of multiple toe [...] the right foot and was sent to [facility] for further evaluation.For this illness, patient's [...] this note may have been generated using [employer] voice recognition software. Reasonable efforts were made to correct any dictation errors that resulted due to the programming of this software but some may still be present. Normal [facility] HOSPon 08-21-2019 HOSP Patient:Elizabeth Modi [...] After 7pm, please call cross cover pager #[phone] Subjective CHIEF COMPLAINT / REASON FOR ADMISSION: Right foot gangrene HPI: This is a 79 year old male has a past medical history of DM (diabetes mellitus) (HCC), Dyslipidemia, HTN (hypertension), and Hypothyroidism. sent as a transfer from [facility] for blackish coloration of multiple toe [...] the right foot and was sent to [facility] for further evaluation.For this illness, patient's [...] this note may have been generated using [employer] voice recognition software. Reasonable efforts were made [...] have any questions[place] [phone]. Age: [age] year old Allergies: ALLERGIES No [...] results found for: PEGGY LEMUS, PHARMACIST RAHAT LEMUS PHARMACIST 08/21/2019 9:20 PM Signed Renal Dose Monitoring 1. Estimated CrCl: 52 (calculated from previous lab reported from MD of 1.2 and using IBW) 2. Recommendations: Zosyn 3.375g Dose:No Change Frequency:Increase frequency to Q6H - Rationale: Patient CrCl is greater than 40 and being infused over 30 minutes Pharmacy [id number] Ana Luisa Crooks MD 08/22/2019 6:04 AM [...] questions or concerns Mon-Fri 6a-5p please page [phone]. After 5pm and on Weekends and Holidays, please page [phone] if in ICU or [phone] if on RNF. Service date: 08/22/2019 Service time: 4:01 AM Reason for consult: foot wounds Nature of consult: routine Subjective HPI Mr. Modi is a 79 year old male with necrotic L foot. Patient reports that he has only noticed this over the last week. Initially presented to [facility] for this reason and was transferred to [facility] for care. Denies pain and states [...] HISTORY Diagnosis Date - DM (diabetes mellitus) ([facility]) - Dyslipidemia - HTN (hypertension) - [...] questions or concerns Mon-Fri 6a-5p please page [phone]. After 5pm and on Weekends and Holidays, please page [phone] if in ICU or [phone] if on RNF. Previous Version Jose Walton Pharmacist 08/22/2019 9:21 AM Addendum PHARMACY VANCOMYCIN DOSING NOTE Patient Name: Elizabeth NAVARRON: [id number] Admission Date: 08/21/2019 Date of Consult: 08/22/2019 [...] have any questions, please contact Pharmacy at [phone]. Age: [age] year old Allergies: ALLERGIES No [...] results found for: PEGGY Walton, Pharmacist Pager: [phone] Previous Version Adali Murry APRN.[employer] 08/22/2019 11:19 AM Signed WOUND CARE CONSULT ADMISSION SPECIALIST NOTE SERVICE DATE: 08/22/2019 SERVICE TIME: 0910 TIME SPENT (minutes): 30 REASON FOR CONSULT: Eval R foot necrosis/wound CHIEF COMPLAINT: c/o necrotic toes and tissue to R foot. Subjective HISTORY OF PRESENT ILLNESS: Mr. Mdoi is a 79 year old male who is seen today with Yolanda Jackman Wound/forming process line worker, and presented to hospital with complaints of [...] found under the Get Images tab on [employer]. Photos are uploaded by the wound rn coronary care unit and may not be immediately available for viewing. Contact the wound and ostomy care department with questions. SIGNATURE: Adali Murry APRN.CNS PATIENT NAME: Elizabeth Modi DATE: August 22, 2019 TIME: 11:03 AM CONTACT#: [id number] Yadi Badillo DPM 08/22/2019 6:41 PM Signed ORTHOPAEDIC SURGERY CONSULT Pt: ELIZABETH MODI Date of Consultation: 08/22/2019 Physician Consulted: Dr. Badillo Reason for Consultation: Necrotic foot HPI: 79 year old male presented to [facility] on 08/21/2019 with complaints of changes [...] 2019 Time: 6:32 PM Previous Version Paulo Fleming MD 08/22/2019 3:07 PM Signed INITIAL CONSULT [...] the care of this patient. SIGNATURE: Paulo Fleming MD PATIENT NAME: Elizabeth Modi DATE: August [...] of fat/muscle stores;Patient/family self-report Estimated kilocalorie needs: 5996-5733 Calorie Calculation Method: 30-35 kcals/kg Estimated protein [...] Signs of Inflammation: Hyperglycemia;Hypoalbu minemia;Imaging studies SIGNATURE: Kacei Marquez, Glueline Worker PATIENT NAME: Elizabeth Modi DATE: August 22, 2019 TIME: 2:27 PM PAGER: [phone] Previous Version Sue Bianchi DO 08/22/2019 3:29 PM Signed [facility] MEDICINE PROGRESS NOTE SERVICE DATE: 08/22/2019 SERVICE TIME: 2:32 PM Hospital Medicine/Primary Attending: Sue Bianchi DO NIGHT AND WEEKEND COVERAGE: After 7pm, please call cross cover pager #[phone] Subjective INTERVAL HPI: Patient seen and examined. 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- cranial nerves 2 to 12 grossly intact, [...] 08/21/191914 vte non-pharmacologic prophylaxis - none indicated (ia,me) 08/21/191914 activity - mobilize patient (ia,me) VTE Prophylaxis: VTE prophylaxis appropriate Disposition: Home with [facility] Plan of care discussed with: Provider, RN, Patient SIGNATURE: Sue Bianchi DO PATIENT NAME: Elizabeth Modi DATE: August 22, 2019 TIME: 2:32 PM PAGER/CONTACT #: [phone] Gordo Figueroa MD 08/23/2019 1:07 PM Signed [facility] - Operative Report ELIZABETH MODI : 1940 AGE: 79. SEX: M PATIENT TYPE: I HOSP SVC: ORCA LOCATION: [facility] ATTENDING PHYSICIAN: Ara Singer M.D. CSN NUMBER: [id number] DATE OF SURGERY/PROCEDURE: 08/23/2019 INCISION/PROCEDURE START TIME: 8:42 AM INCISION CLOSE/PROCEDURE END TIME: 9:04 AM PREOPERATIVE DIAGNOSIS: Gangrenous changes of the right foot with gas in the subcutaneous tissues. POSTOPERATIVE DIAGNOSIS: Gangrenous changes of the right foot with gas in the subcutaneous tissues. SURGEON: Gordo Figueroa MD RADIOLOGY SERVICES MANAGER: 1. Jennifer Crooks M.D. 2. Irvin Walker, assistant accounting manager. SURGERY/PROCEDURE: Guillotine right above ankle/below-knee amputation. [...] recovery area in stable condition. MD DESMOND Ley:[id number] /[id number] Previous Version Doris Eden MD 08/25/2019 9:16 AM Signed [facility] - Consultation PATIENT NAME: ELIZABETH MODI CSN: [id number] DATE OF : 1940 SEX/AGE: M/79 PATIENT TYPE: I HOSP SVC: ORCA LOCATION: [id number] DATE OF SERVICE: 08/23/2019 TIME OF SERVICE: 01:15 PM REFERRING PHYSICIAN: Dexter Chávez MD REASON FOR CONSULTATION: Uncontrolled diabetes. HISTORY OF PRESENT ILLNESS: The patient is a 79-year-old male, who was transferred from [facility] with gangrene off right foot toes. [...] Lantus 10. Doris Eden MD Endocrinology SM:modserene /[id number] Tom Prescott DO, DO 08/23/2019 1:43 AM [...] questions or concerns Mon-Fri 6a-5p please page [phone]. After 5pm and on Weekends and Holidays, please page [phone] if in ICU or [phone] if on RNF. Cayetano Zapata MD, 08/23/2019 6:31 AM Signed ORTHOPAEDIC SURGERY DAILY [...] Units SUBCUTANEOUS q 12 H Mohammad F Buddhist 5,000 Units at 08/22/19 0807 - [MAR Hold due to Transfer] aluminum-magnesium hydroxide-simethicone 200-200-20 mg/5 mL 30 mL (MAALOX,MYLANTA,MAG-AL PLUS) 30 mL ORAL DAILY PRN Mohammad F Buddhist - [MAR Hold due to Transfer] ondansetron 4 mg tab(s) (ZOFRAN) 4 mg ORAL q 6 H PRN Mohammad F Buddhist Or - [MAR Hold due to Transfer] ondansetron (PF) 4 mg injection (ZOFRAN) 4 mg INTRAVENOUS q 6 H PRN Mohammad F Buddhist - [MAR Hold due to Transfer] polyethylene glycol 3350 17 g packet (MIRALAX, GLYCOLAX) 17 g ORAL DAILY PRN Mohammad F Buddhist - [MAR Hold due to Transfer] docusate sodium 100 mg cap(s) (COLACE) 100 mg ORAL BID PRN Mohammad F Buddhist - [MAR Hold due to Transfer] magnesium hydroxide 400 mg/5 mL 30 mL (MOM) 30 mL ORAL DAILY PRN Mohammad F Buddhist - [MAR Hold due to Transfer] bisacodyl 10 mg suppository (DULCOLAX) 10 mg RECTAL DAILY PRN Mohammad F Buddhist - [MAR Hold due to Transfer] acetaminophen 650 mg tab(s) (TYLENOL) 650 mg ORAL q 6 H PRN Mohammad F Buddhist - [MAR Hold due to Transfer] atorvastatin 40 mg tab(s) (LIPITOR) 40 mg ORAL DAILY Mohammad F Buddhist 40 mg at 08/22/192009 - [MAR Hold due to Transfer] lisinopril 10 mg tab(s) (ZESTRIL, PRINIVIL) 10 mg ORAL DAILY Mohammad F Buddhist 10 mg at 08/22/19 0807 - [MAR Hold due to Transfer] levothyroxine 25 mcg tab(s) (SYNTHROID) 25 mcg ORAL DAILY Mohammad F Buddhist 25 mcg at 08/22/19 0600 - [MAR Hold due to Transfer] insulin lispro pen (rapid acting) (HumaLOG KWIKPEN) SUBCUTANEOUS w MEALS AND HS Mohammad F Buddhist 1 Units at 08/22/192128 - [MAR Hold due to Transfer] dextrose 40 % 15 g 15 g ORAL PRN Mohammad F Buddhist Or - [MAR Hold due to Transfer] glucagon 1 mg injection (GLUCAGEN) 1 mg INTRAMUSCULAR PRN Mohammad F Buddhist Or - [MAR Hold due to Transfer] dextrose 50% in water 25 mL syringe 12.5 g INTRAVENOUS PRN Mohammad F Buddhist - [MAR Hold due to Transfer] vancomycin iv piggyback 1.25 g in D5W 250 mL (VANCOCIN) 1.25 g INTRAVENOUS q 12 HR Mohammad F Buddhist 250 mL/hr at 08/22/192009 1.25 g at 08/22/192009 - [MAR Hold due to Transfer] vancomycin dosing and monitoring per pharmacy OTHER As Directed Mohammad F Buddhist - [MAR Hold due to Transfer] piperacillin-tazobacta m iv piggyback 3.375 g in dextrose (iso-osmotic) 50 mL (ZOSYN) 3.375 g INTRAVENOUS q 6 H Mohammad F Buddhist 100 mL/hr at 08/23/19 0549 3.375 g at 08/23/19 0549 - [MAR Hold due to Transfer] clindamycin iv piggyback 600 mg in D5W 50 mL (CLEOCIN) 600 mg INTRAVENOUS q 6 H Mohammad F Buddhist 100 mL/hr at 08/23/19 0549 600 mg [...] August 23, 2019 TIME: 8:32 AM CSN: [id number] Previous Version Tom Prescott DO, DO 08/23/2019 [...] questions or concerns Mon-Fri 6a-5p please page [phone]. After 5pm and on Weekends and Holidays, please page [phone] if in ICU or [phone] if on RNF. Subjective SUBJECTIVE: Patient seen [...] IANDO: Date 08/22/19 07 - 08/23/19 0659 08/23/19 07 - 08/24/19 0659 Shift 1030-3170 7645-6495 2465-0273 24 Hour Total 1090-6054 4032-5305 3624-1538 24 Hour Total INTAKE PO 240 240 PO 240 240 Shift Total 240 240 OUTPUT Urine 500 134 249 2968 Void (ml) 500 924 410 4425 Shift Total 500 673 541 2861 Weight (kg) 85 85 85 85 85 [...] and plan discussed with attending: Dr. Figueroa, monotype machinist for Dr. Parmar SIGNATURE: Tom Prescott DO [...] assistance of the resident and the assistant accounting manager BRIEF OP / PROCEDURE NOTE LOG ID: [id number] Surgery/Procedure Date: 08/23/2019 Incision/Procedure Start Time: 8:42 AM Incision Close/Procedure End Time: 9:04 AM Surgeon(s)/Procedurali st(s) and Lithopone Charger(s): Surgeon(s) and Role: * Gordo Figueroa - [...] After 7pm, please call cross cover pager #[phone] Subjective INTERVAL HPI: Patient seen and examined. 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- cranial nerves 2 to 12 grossly intact, [...] indicated (fl,oh) 08/21/191914 activity - mobilize patient (ia,me) VTE Prophylaxis: VTE prophylaxis appropriate Disposition: Home with [facility] Plan of care discussed with: Provider, RN, Patient SIGNATURE: Sue Bianchi DO PATIENT NAME: Elizabeth Modi DATE: August 23, 2019 TIME:12:20 PM PAGER/CONTACT #: [phone] [phone] Doris Eden MD 08/23/2019 1:21 PM Signed [...] Inpatient Needs Prior to Discharge: OT/PT Evaluation;Discharge Transportation;[facility] Facility;Precertificat ion MEDICAL: [facility] Patient/Resident Care Associate Stated Goals: To have reduction in symptoms;To improve my functional status Health Insurance: [employer]ingly Issues Impacting Discharge Plan: None Last Discharge Date: N/A Is this Within the Past 30 days? Last discharge within 30 days: No Advance Directive: Current Advance Directive: None Software Project Lead Attempted to Assist with AD Completion: Yes [...] Mostly I feel financially burdened by my zxw-gy-[id number] expenses for my prescription medication:: 0 - Agree Somewhat Risk Score: 0 Patient is categorized as: Low risk < 2 Are you interested in bedside delivery of your medications? No Is Patient Psychosocially Complex?: No ASSESSMENT AND PLAN: Medical Needs: Medical Needs: None Psychosocial Needs: Psychosocial Needs: None FREEDOM OF CHOICE EXPLAINED: [place] of Choice Given: Yes Level of Care Discussed: Inpatient Rehab Facility Financial Disclosure Provided: Yes Financial Disclosure Comments: ESR Provider List: (Pt refused list- would like [facility]. ) POTENTIAL TRANSITION PLANS Rehab Facility Spoke with pt at the bedside. 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 Pt states that he has a PCP in [place]. Pt is s/p right foot amp. Anticipate AR needs at d/c. Await PT/OT suzy. Pt would like [facility] rehab- referral sent. Pt will need auth and likely transport at d/c. Will follow. SIGNATURE: Tami Patricio RN PATIENT NAME: Elizabeth Moid DATE: August 23, 2019 TIME: 3:18 PM PAGER/CONTACT #: [phone] Paulo Fleming MD 08/23/2019 3:55 PM Addendum PROGRESS NOTE [...] for Today's Visit: Most recent labs Paulo Fleming MD Infectious Disease Respiratory [place] Pager: [phone] August 23, 2019 Previous Version ISAC NAVARRO [...] have any questions[place] [phone]. Age: [age] year old Allergies: ALLERGIES No [...] Vancomycin,Random (mg/L) Date/Time Value 08/23/2019 1830 22.0 SIAC NAVARRO, PHARMACIST Francine Roberts MD 08/24/2019 7:53 [...] questions or concerns Mon-Fri 6a-5p please page [phone]. After 5pm and on Weekends and Holidays, please page [phone] if in ICU or [phone] if on RNF. Subjective SUBJECTIVE: Denies leg [...] 08/23/19699 - 08/24/19 0659 08/24/19 07 - 03/08/20 0659 Shift 8868-9988 5379-0294 9225-3603 24 Hour Total 7563-0687 9932-4459 8347-5857 24 Hour Total INTAKE IV 625 625 OR Crystalloid intake (mL) 250 250 Volume (mL) (lactated ringers infusion) 125 125 Volume (mL) (vancomycin iv piggyback 1.25 g in D5W 250 mL (VANCOCIN)) 250 250 Shift Total 625 625 OUTPUT Urine 145 462 7568 Void (ml) 947 747 4064 Blood 50 50 Estimated Blood loss 50 50 Shift Total 315 869 4730 Weight (kg) 85 85 85 85 85 [...] 3 g in NaCl 0.9% 100 mL MB+/ADD-Delton (UNASYN) 3 g INTRAVENOUS q 6 H [...] pharmacy if questions. MARTHA RYAN PHARMACIST Ext: [phone] Edy Paredes MD 08/24/2019 9:20 AM Signed Edy Paredes MD, MS, FACP, [facility] Division of Infectious [place] [address] [facility] [address] [place] [id number] Office: [phone] INFECTIOUS DISEASE CONSULT PROGRESS NOTE SERVICE DATE: [...] off. SIGNATURE: Edy Paredes MD, MS, FACP, [facility] PATIENT NAME: Elizabeth Modi DATE: August 24, 2019 TIME: 9:16 AM PAGER/CONTACT #: [phone] Sue Bianchi DO 08/24/2019 5:16 PM Signed [facility] MEDICINE PROGRESS NOTE SERVICE DATE: 08/24/2019 SERVICE TIME: 12:40 PM Hospital Medicine/Primary Attending: Sue Bianchi DO NIGHT AND WEEKEND COVERAGE: After 7pm, please call cross cover pager #[phone] Subjective INTERVAL HPI: Patient seen and examined. 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- cranial nerves 2 to 12 grossly intact, [...] 08/21/191914 vte non-pharmacologic prophylaxis - none indicated ([place], [place]) 08/21/191914 activity - mobilize patient ([place]) VTE Prophylaxis: VTE prophylaxis appropriate Disposition: Home with [facility] Plan of care discussed with: Provider, RN, Patient SIGNATURE: Sue Bianchi DO PATIENT NAME: Elizabeth Modi DATE: August 24, 2019 TIME:12:40 PM PAGER/CONTACT #: [phone] Susan Miner OTR/Serene 08/24/2019 1:07 PM Signed Occupational Therapy Evaluation SERVICE DATE: 08/24/2019 SERVICE TIME: 1133 to 1208 ROOM: [place] [address] Recommended Discharge Disposition: Acute Rehab Justification For [...] and signs-other Interventions Provided: Evaluation;Self Fpc Management (68772) $ Evaluation-Moderate (57587) Billed Units: 1 unit OT Evaluation Moderate [...] thyroid, HTN, DM, claudication Self Fpc Management (82329) Treatment Minutes: 10 1 unit Skilled Intervention(s): [...] lower extremity. 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 Patient agreeable to (more content not included)... Normal [facility] No Panel Information [facility] Vital Signs Date Time Vital Sign Value Performing Clinician Facility 10-16-2024 07:59-0400 Body height 167.[address] Diana Salmeron MD Work Phone: [facility] 10-16-2024 07:59-0400 Body mass index (BMI) [Ratio] 29 kg/m2 Dr. Diana Salmeron MD Work Phone: [facility] 10-16-2024 07:59-0400 Body weight 81.[address] Diana Salmeron MD Work Phone: [facility] 10-16-2024 07:59-0400 Diastolic blood pressure 74 mm[Hg] Dr. Diana Salmeron MD Work Phone: [facility] 10-16-2024 07:59-0400 Heart rate 64 /min Dr. Diana Salmeron MD Work Phone: [facility] 10-16-2024 07:59-0400 Respiratory rate 18 /min Dr. Diana Salmeron MD Work Phone: [facility] 10-16-2024 07:59-0400 Systolic blood pressure 131 mm[Hg] Dr. Diana Salmeron MD Work Phone: [facility] 10-16-2024 00:07-0400 Body temperature 97.8 [degF] Dr. Diana Salmeron MD Work Phone: [facility] 10-16-2024 00:07-0400 Diastolic blood pressure 76 mm[Hg] Dr. Diana Salmeron MD Work Phone: [facility] 10-16-2024 00:07-0400 Heart rate 68 /min Dr. Diana Salmeron MD Work Phone: [facility] 10-16-2024 00:07-0400 Respiratory rate 16 /min Dr. Diana Salmeron MD Work Phone: [facility] 10-16-2024 00:07-0400 SaO2% (BldA) [Mass fraction] 97 % Dr. Diana Salmeron MD Work Phone: [facility] 10-16-2024 00:07-0400 Systolic blood pressure 148 mm[Hg] Dr. Diana Salmeron MD Work Phone: [facility] 10-15-2024 17:47-0400 Body mass index (BMI) [Ratio] 29.9 kg/m2 Dr. Diana Salmeron MD Work Phone: [facility] 10-15-2024 17:47-0400 Body weight [address] Diana Salmeron MD Work Phone: [facility] 10-15-2024 16:00-0400 Body height 167.[address] Diana Salmeron MD Work Phone: [facility] 10-01-2024 13:22-0400 Body height 167.6 cm Nikolai Connor PA-C Work Phone: [facility] Comment on above: After amputations per patient. 10-01-2024 13:22-0400 Body temperature 97.3 [degF] Nikolai Connor PA-C Work Phone: [facility] 10-01-2024 13:22-0400 Diastolic blood pressure 82 mm[Hg] Nikolai Connor PA-C Work Phone: [facility] Comment on above: Mario notified of blood pressure- pat ient aware to let staff where he resides know of his blood pressure. 10-01-2024 13:22-0400 Heart rate 62 /min Nikolai Connor PA-C Work Phone: [facility] 10-01-2024 13:22-0400 Respiratory rate 14 /min Nikolai Connor PA-C Work Phone: [facility] 10-01-2024 13:22-0400 SaO2% (BldA) [Mass fraction] 97 % Nikolai Connor PA-C Work Phone: [facility] 10-01-2024 13:22-0400 Systolic blood pressure 182 mm[Hg] Nikolai Connor PA-C Work Phone: [facility] Comment on above: Mario notified of blood pressure- pat ient aware to let staff where he resides know of his blood pressure. 01-11-2023 12:58-0400 Body temperature 97.4 [degF] Dr. Dexter Reyes Work Phone: [facility] 01-11-2023 12:58-0400 Diastolic blood pressure 65 mm[Hg] Dr. Dexter Reyes Work Phone: [facility] 01-11-2023 12:58-0400 Heart rate 66 /min Dr. Dexter Reyes Work Phone: [facility] 01-11-2023 12:58-0400 Respiratory rate 17 /min Dr. Dexter Reyes Work Phone: [facility] 01-11-2023 12:58-0400 Systolic blood pressure 113 mm[Hg] Dr. Dexter Reyes Work Phone: [facility] 12-17-2022 12:00-0400 Body temperature 98.8 [degF] Dr. Dexter Reyes Work Phone: [facility] 12-17-2022 12:00-0400 Diastolic blood pressure 68 mm[Hg] Dr. Dexter Reyes Work Phone: [facility] 12-17-2022 12:00-0400 Heart rate 60 /min Dr. Dexter Reyes Work Phone: [facility] 12-17-2022 12:00-0400 Inhaled oxygen flow rate 2 L/min Dr. Dexter Reyes Work Phone: 4(394)[phone] [place] [address] 12-17-2022 12:00-0400 Respiratory rate 18 /min Dr. Dexter Reyes Work Phone: 9(252)568-873093 [place] [address] 12-17-2022 12:00-0400 SaO2% (BldA) [Mass fraction] 95 % Dr. Dexter Reyes Work Phone: 3(043)[phone] [place] [address] 12-17-2022 12:00-0400 Systolic blood pressure 147 mm[Hg] Dr. Dexter Reyes Work Phone: 0(794)[phone] [place] [address] 12-17-2022 06:00-0400 Body mass index (BMI) [Ratio] 32.6 kg/m2 Dr. Dexter Reyes Work Phone: [facility] 12-17-2022 06:00-0400 Body weight 92.[address] Dexter Reyes Work Phone: [facility] 12-15-2022 20:05-0400 Inhaled oxygen concentration 4 % Dr. Dexter Reyes Work Phone: [facility] 12-15-2022 10:54-0400 Body height 167.[address] Dexter Reyes Work Phone: [facility] 09-01-2022 09:59-0400 Body temperature 97.7 [degF] Shana Delgado MD Work Phone: [facility] 09-01-2022 09:59-0400 Diastolic blood pressure 68 mm[Hg] Shana Delgado MD Work Phone: [facility] 09-01-2022 09:59-0400 Heart rate 66 /min Shana Delgado MD Work Phone: [facility] 09-01-2022 09:59-0400 Systolic blood pressure 135 mm[Hg] Shana Delgado MD Work Phone: [facility] 01-13-2022 13:09-0400 Heart rate 79 /min DR KARL BARRERA MD [facility] 01-13-2022 11:36-0400 Body temperature 97.88 [degF] DR KARL BARRERA MD [address] 01-13-2022 11:36-0400 Diastolic Blood Pressure NBP [address] KARL BARRERA MD [address] 01-13-2022 11:36-0400 Heart rate 79 /min DR KARL BARRERA MD [address] 01-13-2022 11:36-0400 Mean blood pressure 79 mm[Hg] DR KARL BARRERA MD [address] 01-13-2022 11:36-0400 Reason For Taking VItal Signs DR KARL BARRERA MD [address] 01-13-2022 11:36-0400 Respiratory rate 18 /min DR KARL BARRERA MD [facility] 01-13-2022 11:36-0400 Systolic Blood Pressure NBP [address] KARL BARRERA MD [address] 01-13-2022 08:42-0400 Heart rate 81 /min DR KARL BARRERA MD [facility] 01-13-2022 08:42-0400 Heart rate 82 /min DR KARL BARRERA MD [facility] 01-13-2022 07:06-0400 Body temperature 97.52 [degF] DR KARL BARRERA MD [address] [place] [address] 01-13-2022 07:06-0400 Diastolic Blood Pressure NBP [address] KARL BARRERA MD [address] [place] [address] 01-13-2022 07:06-0400 Mean blood pressure 79 mm[Hg] DR KARL BARRERA MD [address] [place] [address] 01-13-2022 07:06-0400 Reason For Taking VItal Signs DR KARL BARRERA MD [address] [place] [address] 01-13-2022 07:06-0400 Respiratory rate 18 /min DR KARL BRARERA MD [address] [place] [address] 01-13-2022 07:06-0400 Systolic Blood Pressure NBP [address] KARL BARRERA MD [address] [place] [address] 01-13-2022 04:52-0400 Body temperature 97.7 [degF] DR KARL BARRERA MD [address] [place] [address] 01-13-2022 04:52-0400 Diastolic Blood Pressure NBP [address] KARL BARRERA MD [address] [place] [address] 01-13-2022 04:52-0400 Mean blood pressure 83 mm[Hg] DR KARL BARRERA MD [address] [place] [address] 01-13-2022 04:52-0400 Reason For Taking VItal Signs DR KARL BARRERA MD [address] [place] [address] 01-13-2022 04:52-0400 Respiratory rate 18 /min DR KARL BARRERA MD [address] [place] [address] 01-13-2022 04:52-0400 Systolic Blood Pressure NBP [address] KARL BARRERA MD [address] [place] [address] 01-12-2022 16:59-0400 Heart rate 71 /min DR KARL BARRERA MD [address] [place] [address] 01-12-2022 09:02-0400 Heart rate 71 /min DR KARL BARRERA MD [address] [place] [address] 01-11-2022 04:44-0400 Diastolic blood pressure 79 mm[Hg] DR KARL BARRERA MD [address] [place] [address] 01-11-2022 04:44-0400 Mean blood pressure 110 mm[Hg] DR KARL BARRERA MD [address] [place] [address] 01-11-2022 04:44-0400 Systolic blood pressure 171 mm[Hg] DR KARL BARRERA MD [address] [place] [address] 01-11-2022 04:02-0400 Diastolic blood pressure 71 mm[Hg] DR KARL BARRERA MD [address] [place] [address] 01-11-2022 04:02-0400 Mean blood pressure 105 mm[Hg] DR KARL BARRERA MD [address] [place] [address] 01-11-2022 04:02-0400 Systolic blood pressure 173 mm[Hg] DR KARL BARRERA MD [address] [place] [address] 01-10-2022 02:13-0400 Diastolic blood pressure 73 mm[Hg] DR KARL BARRERA MD [address] [place] [address] 01-10-2022 02:13-0400 Systolic blood pressure 179 mm[Hg] DR KARL BARRERA MD [address] [place] [address] 01-10-2022 01:27-0400 Signs/Symptoms Transfusion Reaction DR KARL BARRERA MD [address] 01-10-2022 01:27-0400 Transfusion Documentation Ended/Paper DR KARL BARRERA MD [address] [place] [address] 01-10-2022 00:56-0400 Signs/Symptoms Transfusion Reaction DR KARL BARRERA MD [address] 01-10-2022 00:27-0400 Heart rate 63 /min DR KARL BARRERA MD [address] [place] [address] 01-10-2022 00:11-0400 Signs/Symptoms Transfusion Reaction No DR KARL BARRERA MD [address] [place] [address] 01-10-2022 00:11-0400 Heart rate 64 /min DR KARL BARRERA MD [address] [place] [address] 01-09-2022 22:36-0400 Transfusion Documentation Started/Paper DR KARL BARRERA MD [address] [place] [address] 01-06-2022 09:26-0400 Diastolic blood pressure 45 mm[Hg] DR KARL BARRERA MD [address] [place] [address] 01-06-2022 09:26-0400 Mean blood pressure 64 mm[Hg] DR KARL BARRERA MD [address] [place] [address] 01-06-2022 09:26-0400 Systolic blood pressure 103 mm[Hg] DR KARL BARRERA MD [address] [place] [address] 01-06-2022 08:38-0400 Diastolic blood pressure 50 mm[Hg] DR KARL BARRERA MD [address] [place] [address] 01-06-2022 08:38-0400 Mean blood pressure 69 mm[Hg] DR KARL BARRERA MD [address] [place] [address] 01-06-2022 08:38-0400 Systolic blood pressure 107 mm[Hg] DR KARL BARRERA MD [address] [place] [address] 01-06-2022 07:40-0400 Diastolic blood pressure 45 mm[Hg] DR KARL BARRERA MD [address] [place] [address] 01-06-2022 07:40-0400 Mean blood pressure 66 mm[Hg] DR KARL BARRERA MD [address] [place] [address] 01-06-2022 07:40-0400 Systolic blood pressure 113 mm[Hg] DR KARL BARRERA MD [address] [place] [address] 01-05-2022 20:12-0400 SaO2% (BldA) [Mass fraction] 98.4 % DR KARL BARRERA MD [facility] 01-05-2022 18:47-0400 SaO2% (BldA) [Mass fraction] 97.6 % DR KARL BARRERA MD [facility] 01-05-2022 17:13-0400 SaO2% (BldA) [Mass fraction] 97.7 % DR KARL BARRERA MD [facility] 01-05-2022 12:30-0400 Body temperature 98.98 [degF] DR KARL BARRERA MD [address] [place] [address] 01-05-2022 12:25-0400 Body temperature 99 [degF] DR KARL BARRERA MD [address] [place] [address] 01-05-2022 12:20-0400 Body temperature 99.07 [degF] DR KARL BARRERA MD [address] [place] [address] 01-05-2022 12:20-0400 Body temperature 98.51 [degF] DR KARL BARRERA MD [address] [place] [address] 01-05-2022 12:15-0400 Body temperature 98.6 [degF] DR KARL BARRERA MD [address] [place] [address] 01-05-2022 12:10-0400 Body temperature 98.67 [degF] DR KARL BARRERA MD [address] [place] [address] 01-05-2022 11:54-0400 SaO2% (BldA) [Mass fraction] 98.2 % DR KARL BARRERA MD [facility] 01-05-2022 11:19-0400 SaO2% (BldA) [Mass fraction] 99.4 % DR KARL BARRERA MD [facility] 01-05-2022 10:44-0400 SaO2% (BldA) [Mass fraction] 99.4 % DR KARL BARRERA MD [facility] 01-03-2022 23:07-0400 Mean blood pressure 83 mm[Hg] DR KARL BARRERA MD [address] [place] [address] 01-03-2022 12:05-0400 Body height [address] KARL BARRERA MD [address] 01-03-2022 12:05-0400 Body weight 81.[address] KARL BARRERA MD [address] [place] [address] 01-03-2022 12:05-0400 Body weight 35.28 kg/m2 DR KARL BARRERA MD [address] 01-03-2022 04:54-0400 Body weight 81.[address] KARL BARRERA MD [address] 12-31-2021 03:38-0400 Heart rate 80 /min DR KARL BARRERA MD [address] 12-30-2021 05:08-0400 Body weight 103.[address] KARL BARRERA MD [facility] 02-09-2021 12:00-0400 Diastolic blood pressure 53 mm[Hg] Ammy Vicente MD Work Phone: [facility] Work Phone: 02-09-2021 12:00-0400 Heart rate 51 /min Ammy Vicente MD [facility] Phone: [facility] Work Phone: 02-09-2021 12:00-0400 SaO2% (BldA) [Mass fraction] 91 % Ammy Vicente MD [facility] Work Phone: 02-09-2021 12:00-0400 Systolic blood pressure 110 mm[Hg] Ammy Vicente MD Work Phone: [facility] Work Phone: 02-09-2021 11:45-0400 Respiratory rate 16 /min Ammy Vicente MD Work Phone: [employer] Work Phone: 02-09-2021 10:58-0400 Body temperature 98.1 [degF] Ammy Vicente MD Work Phone: [employer] Work Phone: 02-09-2021 08:21-0400 Body height 142.2 cm Ammy Vicente MD Work Phone: [employer] Work Phone: 02-09-2021 08:21-0400 Body mass index (BMI) [Ratio] 36.77 kg/m2 Ammy Vicente MD Work Phone: [employer] Work Phone: 02-09-2021 08:21-0400 Body weight 74.39 kg Ammy Vicente MD Work Phone: [employer] Work Phone: Encounters Encounter Date Encounter Type Care Provider Facility Start: 04-23-2025 ambulatory Victor M matute OLS Facility:[facility] Start: 04-17-2025 End: 04-17-2025 ambulatory Diana Apontef Facility:[facility] Start: 03-19-2025 ambulatory Victor M matute OLS Facility:[facility] Start: 02-24-2025 End: 02-24-2025 ambulatory Christina Whipple NP Facility:[facility] Start: 02-19-2025 ambulatory Victor M matute OLS Facility:[facility] Start: 02-11-2025 ambulatory Victor M matute OLS Facility:[facility] Start: 02-11-2025 [facility] Start: 02-04-2025 ambulatory Victor M matute OLS Facility:[facility] Start: 02-04-2025 Registered [facility] Start: 01-28-2025 End: 01-28-[address] Victor M Rojas MD -[facility] Work Phone: Start: 01-28-2025 End: 01-28-[address] Diana Salmeron MD Work Phone: [facility] Start: 01-28-2025 Registered Referred Victor M Rojas MD [facility] Start: 01-22-2025 ambulatory Victor M DAVID Facility:[facility] Start: 01-22-2025 Registered Referred Victor M Rojas MD [facility] Start: 01-20-2025 ambulatory [facility] Start: 01-20-2025 Registered Referred Victor M Rojas MD [facility] Start: 01-14-2025 End: 01-14-2025 ambulatory GAYLA CLINE Facility:[id number] Start: 01-14-2025 End: 01-14-2025 Patient encounter procedure Gayla Cline MD Work Phone: Urology Comment on above: Gross hematuria (Margarita dariel Dx); Left renal mass Start: 12-24-2024 End: 12-24-[address] Diana Salmeron MD Work Phone: [facility] Start: 12-24-2024 End: 12-24-2024 Patient encounter procedure [facility] Wh[facility] Work Phone: Start: 12-18-2024 ambulatory Victor M DAVID Facility:[facility] Start: 12-18-2024 Registered Referred Victor M Rojas MD [facility] Start: 12-03-2024 End: 12-03-[address] Diana Salmeron MD Work Phone: [facility] Start: 12-03-2024 End: 12-03-[address] Victor M Rojas MD [facility] Work Phone: Start: 11-20-2024 ambulatory Victor M DAVID Facility:[facility] Start: 11-20-2024 Registered Referred Victor M Rojas [facility] Start: 11-07-2024 End: 11-07-[address] Diana Salmeron MD Work Phone: -[facility] Start: 11-07-2024 End: 11-07-2024 Departed Referred Christina Johanseneliane ANIMAL ECOLOGIST-C -[facility] Start: 11-07-2024 Registered Referred Christina louiseliane ANIMAL ECOLOGIST-C [facility] Start: 11-07-2024 End: 11-07-2024 ambulatory Christina Whipple OLS Facility:[facility] Start: 10-23-2024 End: 10-23-[address] Diana Salmeron MD Work Phone: [facility] Work Phone: Start: 10-23-2024 End: 10-23-2024 Departed Referred Victor M Rojas MD -[facility] Start: 10-23-2024 End: 10-23-2024 ambulatory Victor M Rojas OLS Facility:[facility] Start: 10-16-2024 End: 10-16-2024 Patient encounter procedure Lauren Hutchison AR -[facility] Work Phone: Start: 10-16-2024 End: 10-16-2024 ambulatory Diana Salmeron Facility:[facility] Start: 10-15-2024 End: 10-16-2024 Emergency department patient visit Dr. Diana Salmeron MD Work Phone: -Emergency Department Work Phone: Start: 10-04-2024 End: 12-04-2024 Follow-up encounter Nikolai Connor PA-C Work Phone: Urology Start: 10-01-2024 End: 10-04-2024 Telephone encounter Nikolai Connor PA-C Work Phone: Urology Start: 10-01-2024 End: 10-01-2024 ambulatory NIKOLAI CONNOR Facility:[facility] Start: 10-01-2024 End: 10-01-2024 Patient encounter procedure Nikolai Connor PA-C Work Phone: Urology Comment on above: Gross hematuria (Margarita dariel Dx); Screening for genitourinary condition Start: 09-24-2024 End: 09-24-[address] Diana Salmeron MD Work Phone: [facility] Work Phone: Start: 09-24-2024 End: 09-24-[address] Victor M Rojas MD -[facility] Work Phone: Start: 09-18-2024 End: 09-18-[address] Diana Salmeron MD Work Phone: [facility] Work Phone: Start: 09-18-2024 End: 09-18-2024 Departed Referred Victor M Rojas MD -[facility] Start: 09-18-2024 Registered Referred Victor M Rojas MD -[facility] Start: 09-18-2024 End: 09-18-2024 ambulatory Victor M DAVID Facility:[facility] Start: 09-06-2024 End: 09-06-2024 Patient encounter procedure Kacie GARLAND -[facility] Work Phone: Start: 09-06-2024 End: 09-06-2024 ambulatory Diana Salmeron Facility:[facility] Start: 09-05-2024 End: 09-05-2024 ambulatory Christina Whipple NP Facility:[facility] Start: 09-05-2024 End: 09-05-2024 Patient encounter procedure Christina Whipple NP-C -[facility] Work Phone: Start: 09-03-2024 End: 09-03-2024 ambulatory Christina Whipple NP Facility:[facility] Start: 09-03-2024 End: 09-03-2024 Patient encounter procedure Christina Whipple NP-C -[facility] Work Phone: Start: 08-21-2024 End: 08-21-[address] Diana Salmeron MD Work Phone: [facility] Work Phone: Start: 08-21-2024 End: 08-21-2024 [facility]ed [facility] Start: 08-21-2024 End: 08-21-2024 ambulatory Butros Latouf Facility:[facility] Start: 08-01-2024 ambulatory Butros Latouf Facility: [facility] Start: 08-01-2024 Registered [facility] Start: 07-30-2024 ambulatory Butros Latouf Facility: [facility] Start: 07-24-2024 ambulatory Butros Latouf Facility: [facility] Start: 07-24-2024 Registered Referred Victor M Rojas MD [facility] Start: 07-23-2024 End: 07-23-2024 ambulatory Victor M Rojas Facility:[facility] Start: 07-23-2024 End: 07-23-[address] Victor M Rojas MD -[facility] Work Phone: Start: 07-05-2024 End: 07-05-2024 ambulatory Butros Latouf Facility:[facility] Start: 07-05-2024 End: 07-05-2024 Patient encounter procedure Christina RIVERA -[facility] Work Phone: Start: 07-02-2024 End: 07-02-2024 ambulatory Nikolai Connor PA-C Work Phone: Urology Comment on above: CT urogram results Start: 07-02-2024 End: 07-02-2024 E-mail encounter from caregiver Nikolai Connor PA-C Work Phone: Urology Start: 06-28-2024 End: 06-28-2024 ambulatory NIKOLAI CONNOR Facility:[facility] Start: 06-28-2024 End: 06-28-2024 Subsequent hospital visit by physician Clare [facility] (I-Stat) Work Phone: Cat Scan Comment on above: Gross hematuria [R31 .0] Start: 06-27-2024 ambulatory Butros Latouf Facility: [facility] Start: 06-27-2024 Registered Referred Victor M Rjoas MD -[facility] Start: 06-21-2024 End: 07-09-2024 Telephone encounter Nikolai Connor PA-C Work Phone: Urology Comment on above: Results Start: 06-20-2024 ambulatory Butros Latouf Facility: [facility] Start: 06-20-2024 Registered Referred Victor M Rojas MD -[facility] Start: 06-18-2024 End: 06-18-2024 ambulatory NIKOLAI CONNOR Facility:[facility] Start: 06-18-2024 End: 06-18-2024 Patient encounter procedure Nikolai Connor PA-C Work Phone: Urology Comment on above: Screening for genito urinary condition (Primary Dx); Gross hematuria; Left renal mass Start: 06-17-2024 End: 06-17-2024 Patient encounter procedure Christina RIVERA -[facility] Work Phone: Start: 06-17-2024 End: 06-17-2024 ambulatory Butros Latouf Facility:[facility] Start: 06-17-2024 Registered Referred Victor M Rojas MD -[facility] Start: 06-06-2024 End: 06-06-2024 Patient encounter procedure Kacie GARLAND -[facility] Work Phone: Start: 06-06-2024 End: 06-06-2024 ambulatory Butros Latouf Facility:[facility] Start: 05-21-2024 End: 05-22-2024 ambulatory Victor M DAVID Facility:[facility] Start: 05-08-2024 End: 05-08-2024 ambulatory Butros Latouf Facility:[facility] Start: 01-08-2024 End: 01-08-[address] KENNY CHUA MD Facility:A Start: 04-13-2023 Emergency department patient visit VALENTIN SUMMERS [facility] Start: 03-27-2023 Telephone encounter Urology (History ) [facility] Start: 02-08-2023 End: 02-08-[address] Dexter Reyes Work Phone: [facility] Work Phone: Start: 02-08-2023 End: 02-08-[address] Dexter Reyes Work Phone: [facility] Work Phone: Start: 01-30-2023 End: 01-30-[address] Dexter Reyes Work Phone: [facility] Work Phone: Start: 01-30-2023 End: 01-30-[address] Dexter Reyes Work Phone: [facility]-Radiology, [facility] Work Phone: Start: 01-11-2023 End: 01-11-[address] Dexter Reyes Work Phone: [facility] Work Phone: Start: 12-17-2022 Non-patient / Non-visit Dr. Robel Reyes Work Phone: [facility] Work Phone: Start: 12-16-2022 Non-patient / Non-visit Dr. Robel Reyes Work Phone: [facility] Start: 12-16-2022 Non-patient / Non-visit Dr. Robel Reyes Work Phone: [facility] Work Phone: Start: 12-15-2022 Non-patient / Non-visit Dr. Robel Reyes Work Phone: [facility] Start: 12-15-2022 Non-patient / Non-visit Dr. Robel Reyes Work Phone: [facility] Start: 12-15-2022 Non-patient / Non-visit Dr. Robel Reyes Work Phone: [facility] Work Phone: Start: 12-14-2022 End: 12-17-2022 Evaluation and management of inpatient Dr. Dexter [facility] Work Phone: Start: 12-14-2022 End: 01-08-2024 Pre-admission assessment DR KENNY HCUA MD [facility] Start: 12-14-2022 Non-patient / Non-visit Dr. 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; Vitamin D deficiency Start: 01-17-2022 End: 01-17-2022 Patient encounter procedure HUNTER FALCON APRN-OPERATIONS WELDER [facility] Start: 12-30-2021 End: 01-13-2022 Evaluation and management of inpatient DR KARL BARRERA MD [facility] Start: 11-23-2021 End: 11-23-2021 Subsequent hospital visit by physician Fer Weinstein MD Work Phone: [facility] Comment on above: CHRONIC HEADACHES Start: 02-09-2021 End: 02-09-2021 Subsequent hospital visit by physician Ammy Vicente MD Work Phone: [facility] General Surgery Comment on above: Arrived Start: 11-13-2020 ambulatory [facility] Facility:[facility] Start: 09-09-2020 ambulatory [facility] Facility:[facility] Procedures Date Procedure Procedure Detail Performing [...] on above: Performed By: #### MAG #### [place] [address] Start: 06-19-[address] AKRL BARRERA MD Comment on above: right below [...] DTaP,Tdap,Td Vaccine (2 - Td or Tdap) [facility] Start: 02-17-2025 Influenza vaccination [facility] Start: 01-14-2025 End: 01-14-2025 Patient encounter procedure 01/14/2025 9:15 AM EDT Office Visit Urology [address] [place] [address] Gayla Cline MD [address] [place] [address] WILL BE ON COT, referral for cysto Urology Comment on above: WILL BE ON COT, referral for c ysto Start: 11-08-2024 End: 11-08-2024 Patient encounter procedure 11/08/2024 8:15 AM EDT Office Visit Urology [address] [place], [place] [id number] Gayla Cline MD [address] [place], [place] [address] referral for cysto Urology Comment on above: referral for cysto Start: 10-15-2024 End: 10-15-2024 [facility] Start: 07-02-2024 Cystourethroscopy CYSTO.PANENDO Procedures Routine Gross hematuria Expected: 07/02/2024 (Approximate) [facility] Comment on above: Expected: 07/02/2024 (Approximate) Start: 06-28-2024 End: 06-28-2024 Patient encounter procedure 06/28/2024 1:20 PM EST Appointment Cat Scan [address] [place] [address] Gross hematuria [R31.0] Cat Scan Comment on above: Gross hematuria [R31.0] Start: 06-25-2024 End: 09-24-2024 CREATININE BLD CREATININE BLD Lab Routine Screening for genitourinary condition Gross hematuria Expected: 06/25/2024 (Approximate), Expires: 09/24/2024 [facility] Comment on above: Expected: 06/25/2024 (Approximate), Expi res: 09/24/2024 Start: 06-25-2024 End: 07-19-2025 CT Kidney WO and W contrast IV CT UROGRAM WO/W IVCON Radiology Routine Gross hematuria Expected: 06/25/2024, Expires: 07/19/2025 [facility] Comment on above: Expected: 06/25/2024, Expires: Start: 06-19-2024 Advance Directive Discussion Advance Directive Discussion [facility] Start: 06-19-2024 Medicare Advantage Annual Wellness Visit Medicare Advantage Annual Wellness Visit [facility] Start: 02-18-2024 Covid-19 Vaccine ( season) Covid-19 Vaccine ( season) [facility] Start: 02-18-2024 Influenza vaccination Influenza Vaccine (#1) [facility] Start: 09-02-2023 Glaucoma screening Dilated Retinal Exam [facility] Start: 09-02-2023 Hepatitis C antibody, confirmatory test DILATED RETINAL EXAM [facility] Start: 08-13-2023 Hemoglobin A1c measurement HbA1C [facility] Start: 08-13-2023 Hemoglobin A1c/Hemoglobin.total in Blood HbA1C [facility] Start: 06-19-2023 Advance Directive Discussion Advance Directive Discussion [facility] Start: 02-17-2023 Influenza vaccination Influenza Vaccine (#1) [facility] Start: 02-15-2023 Hepatitis B screening URINE ALBUMIN:CREATININE RATIO [facility] Start: 12-17-2022 Patient discharge [facility] Start: 12-16-2022 Dietary regime [facility] Start: 12-16-2022 Catheterization of vein [facility] Start: 12-16-2022 Vital signs measurements [facility] Start: 12-15-2022 [facility] Start: 12-15-2022 Consultation [facility] Start: 12-14-2022 Admission procedure [facility] Start: 12-14-2022 Wound care [facility] Start: 12-14-2022 Consultation for treatment [facility] Start: 12-14-2022 Catheterization of vein [facility] Start: 12-14-2022 Following clinical pathway protocol [facility] Start: 12-14-2022 Admission procedure [facility] Start: 12-14-2022 Assessment of risk of venous thromboembolism [facility] Start: 12-14-2022 Care regimes management [facility] Start: 12-14-2022 Insertion of catheter into peripheral vein [facility] Start: 12-14-2022 Providing care according to standard [facility] Start: 12-14-2022 Provision of activity privileges [facility] Start: 12-14-2022 Fall prevention [facility] Start: 12-14-2022 Introduction of urinary catheter [facility] Start: 12-14-2022 Oxygen therapy [facility] Start: 12-14-2022 Referral to occupational therapist [facility] Start: 12-14-2022 Referral to service [facility] Start: 12-14-2022 Measuring intake and output [facility] Start: 12-14-2022 Referral to gastroenterology service [facility] Start: 12-14-2022 Referral to general surgeon [facility] Start: 12-14-2022 Inhalation therapy procedure [facility] Start: 12-14-2022 Patient referral to dietitian [facility] Start: 12-14-2022 End: 12-14-2022 [facility] Start: 10-11-2022 Hemoglobin A1c/Hemoglobin.total in Blood HBA1C [facility] Start: 08-07-2022 Covid-19 Vaccine (6 - Moderna series) Covid-19 Vaccine (6 - Moderna series) [facility] Start: 06-19-2022 ADVANCE DIRECTIVE DISCUSSION ADVANCE DIRECTIVE DISCUSSION [facility] Start: 06-19-2022 DEPRESSION ASSESSMENT DEPRESSION ASSESSMENT [facility] Start: 02-17-2022 Influenza vaccination INFLUENZA (Season Ended) [facility] Start: 06-19-2021 ADVANCE DIRECTIVE DISCUSSION ADVANCE DIRECTIVE DISCUSSION [facility] Start: 03-17-2021 End: 03-17-2021 Patient encounter procedure 03/17/2021 Office Visit Ophthalmology Ammy Vicente MD [address] [place] [address] [facility] Start: 02-17-2021 Influenza vaccination Flu vaccine (#1) [facility] Work Phone: Start: 02-17-2021 End: 02-17-2021 Patient encounter procedure 02/17/2021 Office Visit Ophthalmology Ammy Vicente MD [address] [place], [place] [id number] [facility] Start: 02-10-2021 End: 02-10-2021 Patient encounter procedure 02/10/2021 Office Visit Ophthalmology Ammy Vicente MD [address] [place], [place] [id number] [facility] Start: 08-15-2020 Hemoglobin A1c/Hemoglobin.total in Blood HBA1C [facility] Start: 2016 RSV Vaccine (1 - 1-dose 75+ series) RSV Vaccine (1 - 1-dose 75+ series) [facility] Start: 2006 Pneumococcal 65+ years Vaccine (1 of 1 - PPSV23) Pneumococcal 65+ years Vaccine (1 of 1 - PPSV23) [facility] Work Phone: Start: 2001 Hepatitis B Vaccine (1 of 3 - Risk 3-dose series) Hepatitis B Vaccine (1 of 3 - Risk 3-dose series) [facility] Start: 1991 Shingles Vaccine (1 of 2) Shingles Vaccine (1 of 2) [facility] Work Phone: Start: 1991 SHINGRIX VACCINE (1 of 2) SHINGRIX VACCINE (1 of 2) [facility] Start: 1960 DTaP/Tdap/Td vaccine (1 - Tdap) DTaP/Tdap/Td vaccine (1 - Tdap) [facility] Work Phone: Start: 1960 Pneumococcal Vaccine: 50+ (1 of 2 - PCV) Pneumococcal Vaccine: 50+ (1 of 2 - PCV) [facility] Start: 1960 Urine microalbumin profile [facility] tony Start: 1959 ANNUAL PCP TEAM CHRONIC DISEASE VISIT ANNUAL PCP TEAM CHRONIC DISEASE VISIT [facility] Start: 1959 Anxiety Screening Anxiety Screening [facility] Start: 1959 BP CONTROLLED (<130/80) BP CONTROLLED (<130/80) [facility] Start: 1959 Depression Screening Depression Screening [facility] Start: 1959 Hepatitis B surface antibody level LDL CHOLESTEROL [facility] Start: 1953 Adult depression screening assessment DEPRESSION SCREENING [facility] Start: 1953 COVID-19 Vaccine (1) COVID-19 Vaccine (1) [facility] Work Phone: Start: 1951 3 comp foot exam completed DIABETIC FOOT EXAM [facility] tony Start: 1951 Diabetic foot examination Diabetic Foot Exam [facility] Start: 1951 Hepatitis B screening URINE ALBUMIN:CREATININE RATIO [facility] Start: 1951 Hepatitis C antibody, confirmatory test DILATED RETINAL EXAM [facility] Start: 1951 Lipid panel Lipid screen [facility] Work Phone: Start: 1947 Pneumococcal Vaccine: 65+ (1 - PCV) Pneumococcal Vaccine: 65+ (1 - PCV) [facility] Start: 1947 PNEUMOCOCCAL: 65+ (1 - PCV) PNEUMOCOCCAL: 65+ (1 - PCV) [facility] Start: 1946 COVID-19 VACCINE (#1) COVID-19 VACCINE (#1) [facility] Start: 1941 Creatinine measurement Creatinine monitoring [facility] Work Phone: Start: 1941 Hepatitis C screening Hepatitis C screen [facility] Work Phone: Start: 1941 Potassium monitoring Potassium monitoring [facility] Work Phone: Start: 1941 Thyroid stimulating hormone measurement TSH testing [facility] Work Phone: Bacteria identified in Urine by Culture [facility] Comment on above: Ordered: 06/18/2024 Bacteria identified in Urine by Culture BACTERIAL CULTURE, URINE Microbiology Routine Gross hematuria 10/01/2024 3:36 PM EDT [facility] Blood glucose - POCT [facility] Work Phone: Comment on above: As Needed until discontinued starting End: 02-09-2021 Creatinine [Mass/volume] in Serum or Plasma Creatinine, serum Lab STAT One Time for 1 Occurrences starting 02/09/2021 until 02/09/2021 [facility] Work Phone: Comment on above: One Time for 1 Occurrences starting 01/18 until 02/09/2021 CT Kidney WO and W contrast IV CT UROGRAM WO/W IVCON Radiology Routine Gross hematuria 06/28/2024 2:26 PM EST [facility] Work Phone: End: 11-03-2025 CT Kidney WO and W contrast IV CT UROGRAM WO/W IVCON Radiology Routine Gross hematuria 1 Occurrences starting 10/04/2024 until 11/03/2025 [facility] Work Phone: Comment on above: 1 Occurrences starting 10/04/2024 until 11/03/2025 Cystourethroscopy CYSTO.PANENDO Procedures Routine Gross hematuria Ordered: 10/01/2024 [facility] Comment on above: Ordered: 10/01/2024 CYTOLOGY NON-VENETIAN BLIND INSTALLER [place] Jamar cruz Comment on above: Ordered: 06/18/2024 [...] As Needed until discontinued starting Oxygen therapy [[facility] Data Set] [facility] Work Phone: Comment on above: Daily until discontinued starting 2020 As Needed until disc ontinued starting 02/09/2021 Patient Education ED Eye Contusi on ED Head Injury (Adult) ED Skin Tear (Skin Avulsion) [facility] Work Phone: Patient referral [facility] Work Phone: POST VOID RESIDUAL POST VOID RES IDUAL Procedures Routine Gross hematuria Screening for genitourinary condition Ordered: 10/01/2024 [facility] Work Phone: Comment on above: Ordered: 10/01/2024 End: 02-09-2021 Potassium w/ Reflex to Magnesium Potassium w/ Reflex to Magnesium Lab Routine One Time for 1 Occurrences starting 02/09/2021 until 02/09/2021 [employer] Work Phone: Comment on above: One Time for 1 Occurrences starting 01/18 until 02/09/2021 End: 02-09-2021 , urine POCT , urine POCT Point of Care Testing Routine One Time for 1 Occurrences starting 02/09/2021 until 02/09/[address] [facility] Work Phone: Comment on above: One Time for 1 Occurrences starting 01/18 until 02/09/2021 End: 02-09-2021 Protime-INR Protime-INR Lab STAT One Time for 1 Occurrences starting 02/09/2021 until 02/09/[address] [facility] Work Phone: Comment on above: One Time for 1 Occurrences starting 01/18 until 02/09/2021 Spirometry panel Incentive [facility] Routine Q1H PRN until discontinued starting 02/09/[address] [facility] Work Phone: Comment on above: Q1H PRN until discontinued starting 01/18 UA DIP, URINE (POC) UA DIP, URIN E (POC) Lab Routine Screening for genitourinary condition Ordered: 06/18/2024 [facility] Work Phone: Comment on above: Ordered: 06/18/2024 Immunizations Immunization Date Immunization Notes Care Provider Fa [facility] 10-15-2024 tetanus toxoid, reduced diphtheria toxoid, and acellular pertussis vaccine, adsorbed Dr. Diana Salmeron MD Work Phone: [facility] 03-19-2022 influenza virus vaccine, unspecified formulation Urology (History) [facility] 10-25-2021 Covid (Pfizer) Dr. Dexter Reyes Work Phone: [facility] 05-21-2021 influenza virus vaccine, unspecified formulation DR KARL BARRERA MD [facility] 05-21-2021 SARS-CoV-2 (COVID-19 ) mRNA-[address] KARL BARRERA MD [facility] 03-10-2021 influenza virus vaccine, unspecified formulation DR KARL BARRERA MD [facility] 10-13-2020 SARS-CoV-2 (COVID-19 ) mRNA-[address] KARL BARRERA MD [facility] Comment on above: Result Comment: 2021: TPV3 09-15-2020 SARS-CoV-2 (COVID-19 ) mRNA-[address] KARL BARRERA MD [facility] Comment on above: Result Comment: 2021: TPV3 03-22-2020 influenza virus vaccine, unspecified formulation DR KARL BARRERA MD [facility] 02-18-2020 influenza virus vaccine, unspecified formulation DR KARL BARRERA MD [facility] 03-18-2019 influenza, injectabl e, quadrivalent, preservative free Dr. Diana Salmeron MD Work Phone: [facility] 03-18-2019 influenza, seasonal, injectable Dr. Dexter Reyes Work Phone: [facility] 03-04-2019 influenza virus vaccine, unspecified formulation DR KARL BARRERA MD [facility] 02-22-2017 influenza virus vaccine, unspecified formulation DR KARL BARRERA MD [facility] Payers Date Payer Category Payer Medicare (Managed Care) [facility] MEDICARE .[id number] 2024 Self-pay [id number] 2020 Medicare [id number] 2019 Private Health Insurance [id number] 2019 Medicaid [id number] 2019 Medicaid [id number] 2015 Medicare [facility] MEDICARE [id number] 2006 Medicare [id number] 2006 Medicare [id number] 1941 Unknown [id number] 1941 Unknown [id number] 1941 Unknown [id number] 1941 Unknown [id number] 1941 Unknown [id number] Medicare [id number] Unknown [id number] Unknown [id number] 2.16.840.1.756524.3.579.2. 462 Unknown [id number] 2.16840.1.939369.3.579.2. 462 Unknown [id number] 2.840.1.746104.3.579.2. 462 Unknown [id number] .840.1.725106.3.579.2. 462 Unknown [id number] 2.840.1.320503.3.579.2. 462 Unknown [id number] 2.840.1.582786.3.579.2. 462 Unknown [id number] .840.1.482562.3.579.2. 462 Unknown [id number] .840.1.924712.3.579.2. 462 Unknown [id number] .840.1.609686.3.579.2. 462 Unknown [id number] .840.1.825921.3.579.2. 462 Unknown [id number] .840.1.282944.3.579.2. 462 Unknown [id number] .840.1.649764.3.579.2. 462 Unknown [id number] 840.1.452813.3.579.2. 462 Unknown [id number] .840.1.585830.3.579.2. 462 Unknown [id number] 840.1.946472.3.579.2. 462 Unknown [id number] 840.1.202345.3.579.2. 462 Unknown [id number] 840.1.653491.3.579.2. 462 Unknown [id number] .840.1.457986.3.579.2. 462 Unknown [id number] .840.1.371410.3.579.2. 462 Unknown [id number] .840.1.157561.3.579.2. 462 Unknown [id number] 2.16.840.1.394636.3.579.2. 462 Unknown [id number] 2.16.840.1.976654.3.579.2. 462 Unknown [id number] 2.16.840.1.959082.3.579.2. 462 Unknown [id number] 2.16.840.1.748391.3.579.2. 462 Unknown [id number] 2.16.840.1.817294.3.579.2. 462 Unknown [id number] 2.16.840.1.076433.3.579.2. 462 Unknown [id number] 2.16.840.1.609514.3.579.2. 462 Unknown [id number] 2.16.840.1.483076.3.579.2. 462 Unknown [id number] 2.840.1.498569.3.579.2. 462 Unknown [id number] 2.840.1.573386.3.579.2. 462 Unknown [id number] 2.16.840.1.358146.3.579.2. 462 Unknown [id number] 2.16.840.1.210152.3.579.2. 462 Unknown [id number] 2.16.840.1.047363.3.579.2. 462 Unknown [id number] 2.840.1.800693.3.579.2. 462 Unknown [id number] 2.16.840.1.489379.3.579.2. 462 Unknown [id number] 2.16840.1.382975.3.579.2. 462 Unknown [id number] 2.840.1.485717.3.579.2. 462 Unknown [id number] 2.840.1.612315.3.579.2. 462 Social History Date Type Detail Facility Start: 02-09-2021 End: 10-15-2024 Tobacco smoking status NHIS Former smoker [facility] Start: 02-09-2021 End: 01-14-2025 Alcohol intake Current drinker of alcohol (finding) [facility] Work Phone: Start: 02-02-2021 Alcohol Comment occassional ETOH use, not on a daily basis [facility] Work Phone: Start: 1940 Sex Assigned At Not on file [facility] Work Phone: Exposure to SARS-CoV -2 (event) Not sure [facility] Start: 12-14-2022 Tobacco smoking status [facility] Tobacco smoking consumption unknown [facility] Start: 05-15-2020 History SDOH Alcohol Frequency 2 [facility] Start: 05-15-2020 History SDOH Alcohol Std Drinks 1 [facility] Start: 12-10-2019 History SDOH Financial 4 [facility] Start: 1940 Sex Assigned At Male [facility] Start: 01-08-1960 End: 01-07-1990 History of tobacco use Current smoker [facility] Work Phone: Start: 01-08-1960 End: 01-07-1990 History of tobacco use Cigarette Smoker [facility] Work Phone: Start: 05-15-2020 End: 05-05-2023 Cigarettes smoked current (pack per day) - Reported 1 [facility] Work Phone: Start: 05-15-2020 End: 06-18-2024 Tobacco use and exposure Smokeless tobacco non-user [facility] Work Phone: Start: 09-05-2019 End: 05-05-2023 Tobacco Comment STOPPED 28 YEARS AGO [facility] Start: 09-05-2019 Alcohol Comment OCCASIONAL [facility] Start: 09-12-2019 Heavy [facility] Start: 09-12-2019 None [facility] Start: 11-23-2019 - [facility] Start: 12-18-2019 Non-smoker [facility] Start: 05-15-2020 End: 05-05-2023 Alcohol Use Disorder Identification Test - Consumption [AUDIT-C] [facility] Work Phone: How often to you hav e a drink containing alcohol? Monthly or less [facility] Work Phone: How many standard dr inks containing alcohol do you have on a typical day? 1 or 2 [facility] Work Phone: Frequency of Binge Drinking Not on file [facility] How hard is it for y ou to pay for the very basics like food, housing, medical care, and heating Not very hard [facility] (I/We) worried wheth er (my/our) food would run out before (I/we) got money to buy more. DK or Refused [facility] Start: 09-20-2024 End: 10-16-2024 Sex Male (finding) [facility] Medical Equipment Procedure Code Equipment Code Equipment Origin al Text Equipment Identifier Dates ERCP (endoscopic retrograde cholangiopancreatog lalit) ([id number]) Polymeric biliary stent, non-bioabsorbable [id number] FDA Start: 12-15-2022 Patch Xenosure Bovine Pericardial Tissue 8x.8cm Vascular Sterile - [id number] Start: 09-02-2019 Goals Date Patient Goal Desired Activity /State Functional Status Date Assessment Result Facility 12-17-2022 Functional status Bedrest [facility] Work Phone: 12-16-2022 Functional status Tolerates Activity Fair [facility] Work Phone: 01-13-2022 Functional Status Room check performed [facility] 01-13-2022 [facility] 01-13[facility] Functional Status [facility] 01-13-2022 Functional Status [facility] 01-13-2022 Functional Status [facility] 01-12-2022 Functional Status [facility] 01-12-2022 Functional Status [facility] 01-12-2022 Functional Status 50 [facility] 01-12-2022 [facility] 01-12[facility] Functional Status Bed Bath Refused [facility] 01-12-2022 Functional Status bilateral knee high [facility] 01-12-2022 Functional Status padded oxygen tubing [facility] 01-11-2022 Functional Status Linen Change Done [facility] 01-11-2022 [facility] Functional Status [facility] 01-10-2022 [facility] 01-10-2022 [facility] 01-10-2022 Functional Status Shampoo/Body w abdirashid (no rinse), CHG bath [facility] 01-10-2022 Functional Status [facility] 01-09-2022 Functional [facility] 01-09-2022 [facility] 01-08-2022 Functional Status [facility] 01-07-2022 Functional Status Transfer Bed t o/from Chair Total 2 [facility] 01-07-2022 Functional Status Supervised 3 [facility] 01-07-2022 Functional Status Hair Care Maximum paola tance [facility] 01-07-2022 Functional Status Fluid Restriction Maint ained [facility] 01-06-2022 Functional Status [facility] 01-05-2022 Functional Status Special Call D evice Unable to use call device [facility] 01-05-2022 Functional Status [facility] 01-05-2022 Functional Status [facility] 01-05-2022 Functional Status Patient Identi fied Identification band, Verbal [facility] 01-04-2022 Functional Status Skin Care Done [facility] 01-03-2022 Functional Status [facility] 01-01-2022 Functional Status [facility] 12-30-2021 Functional Status Living Situati on Intermediate Unit [facility] 12-30-2021 Functional Status Sensory Defici ts Blind, left eye, Blind, right eye [facility] 12-11-2019 Are you deaf, or do you have serious difficulty hearing No 12/11/2019 4:18 PM Josefa Graves RN No [facility] 12-11-2019 Are you blind, or do you have serious difficulty seeing, even when wearing glasses No 12/11/2019 4:18 PM Josefa Graves RN No [facility] 12-11-2019 Do you have serious difficulty walking or climbing stairs Yes 12/11/2019 4:18 PM EDT Josefa Mason RN Yes [facility] 12-11-2019 Do you have difficul ty dressing or bathing No 12/11/2019 4:18 PM EDT Josefa Mason RN No [facility] 12-11-2019 Because of a physica l, mental, or emotional condition, do you have difficulty doing errands alone such as visiting a physician's office or shopping Yes 12/11/2019 4:18 PM EDT Josefa Mason RN Yes [facility] Mental Status Date Assessment Result Facility 12-17-2022 Cognitive function Voice/Name [facility] Work Phone: 01-13-2022 Mental Status Orientation Oriented x 4 [facility] 01-13-2022 Mental Status [facility] 01-12-2022 Mental Status [facility] 01-12-2022 Mental Status [facility] 01-11-2022 Mental Status [facility] 12-11-2019 Because of a physica l, mental, or emotional condition, do you have serious difficulty concentrating, remembering, or making decisions No 12/11/2019 4:18 PM EDT Josefa Mason RN No [facility] Clinical Notes 02-09-2021 to 01-14-2025 Gayla Cline MD - 01/14/2025 10:45 AM Gayla Banuelos MD - 01/14/2025 10:44 AM Gayla Banuelos MD - 01/14/2025 10:44 AM EDT Note Date & Type Note Facility 01-14-2025 Note HNO ID: [id number] Author: GAYLA CLINE MD Service: ? Author [...] (Patient not taking: Reported on 01/14/2025) vit C,P-Un-plpkq-lutein-zeaxan (PRESERVISION AREDS-2) 250-90-40-1 mg Take 1 Each [...] daily. (Patient n (more content not included)... 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 Dr. Montgomery in [place] Congestive heart failure (HCC) Diabetes mellitus (HCC) [...] Gayla Cline MD documented in this encounter [facility] 01-14-2025 Note HNO ID: [id number] Author: GAYLA CLINE MD Service: ? Author Type: Physician Type: Procedures Filed: 01/14/2025 10:48 Note Text: CYSTOSCOPY PROCEDURE NOTE : Elizabeth Modi is a 84 year old male who is here for cystoscopy PRE-OP/PRE-PROCEDURE DIAGNOSIS: h/o gross henaturia POST-OP/POST-PROCEDURE DIAGNOSIS: same SURGERY/PROCEDURE(S): Cystoscopy Pt ID verified with patient: Yes Procedure verified with patient: Yes Procedure confirmed with physician and operations support manager: Yes UNIVERSAL PROTOCOL / SAFETY CHECKLIST Procedure [...] meaning may be extrapolated by contextual derivation. [facility] 01-14-2025 Procedure note CYSTOSCOPY PROCEDURE NOTE : Elizabeth Modi is a 84 year old male who is here for cystoscopy PRE-OP/PRE-PROCEDURE DIAGNOSIS: h/o gross henaturia POST-OP/POST-PROCEDURE DIAGNOSIS: same SURGERY/PROCEDURE(S): Cystoscopy Pt ID verified with patient: Yes Procedure verified with patient: Yes Procedure confirmed with physician and operations support manager: Yes UNIVERSAL PROTOCOL / SAFETY CHECKLIST Procedure [...] meaning may be extrapolated by contextual derivation. [facility] 01-14-2025 Procedure note CYSTOSCOPY PROCEDURE NOTE : Elizabeth Modi is a 84 year old male who is here for cystoscopy PRE-OP/PRE-PROCEDURE DIAGNOSIS: h/o gross henaturia POST-OP/POST-PROCEDURE DIAGNOSIS: same SURGERY/PROCEDURE(S): Cystoscopy Pt ID verified with patient: Yes Procedure verified with patient: Yes Procedure confirmed with physician and operations support manager: Yes UNIVERSAL PROTOCOL / SAFETY CHECKLIST Procedure [...] by contextual derivation. documented in this encounter [facility] 10-16-2024 Evaluation note Diagnosis Onset Date Resolution Atherosclerotic heart disease of [place] coronary artery without angina pectoris chronic October 16, 2024 7:59am Essential hypertension chronic Ap 2024 7:59am Hyperlipidemia chronic September 7:59am Paroxysmal atrial fibrillation chronic October 16, 2024 7:59am [facility] Work Phone: 1(802) 973-595804-29-2025 Discharge summary [facility] Medical Records Department [address] [place] [address] [place] [address] Emergency Department Summary 10/15/24 MR#: [id number] Acct: [id number] Name: ELIZABETH MODI Rep #:[id number] : 1940 84 From: Jesse Griffith PCP: [...] of his last tetanus. Tetanus Immunization: Unknown [facility] Medical History History of echocardiogram [...] pulmonary disease) Obesity Atherosclerotic heart disease of [place] coronary artery without angina pectoris Paroxysmal atrial [...] motor deficits and no sensory deficits noted [place] Coma Scale: document GCS findings Spontaneous Obeys [...] Care Provider] - 5-7 Days Print Language: Latvian Disposition Disposition: Home, Self Care What to do if you have Problems For any increased pain, shortness of breath, bleeding, nausea or vomiting, chestpain, or any unexpected problems, contact your Primary Care Provider. Call [facility] ([phone]) or report tothe closest Emergency Room. Call 911 if necessary. 10/15/24 4780 Cosigner Signature (if applicable): CC: Dr. Diana Salmeron MD ~ Signed [facility]04-29-2025 Radiology Diagnostic study note [facility] Imaging Services [address] [place] [address] Elbow min 3 Views MR#: [id number] Acct: [id number] Name: ELIZABETH MODI Rep #: [id number] : 1940 M 84 From: Frnako Kapadia MD PCP: Dr. Diana Salmeron MD Status: REG ER Study:Elbow min 3 Views Date of Exam: Exam# [id number] Ordering Dr: Jesse Angel DO EXAM: Left elbow CLINICAL HISTORY: Injury, pain COMPARISON: None TECHNIQUE: Three views FINDINGS: No acute fracture or dislocation. Moderate joint space narrowing and osteophyte formation consistent with moderatearthrosis. Normal soft tissues. RAD/Elbow min 3 Views IMPRESSION: No acute fracture or dislocation. Moderate arthrosis. Reading Location: [id number] CC: Dr. Diana Salmeron MD; Dr. Jesse Angel DO ~ Supervisor Operations: Signed [facility]04-29-2025 Radiology Diagnostic study note [facility] Imaging Services [address] [place] [id number] Orb Sella Post Fossa Ear w/o MR#: [id number] Acct: [id number] Name: ELIZABETH MODI Rep #: [id number] : 1940 M 84 From: Franko Kapadia MD PCP: Dr. Diana Salmeron MD Status: REG ER Study:Orb Sella Post Fossa Ear w/o Date of Ex am: 10/15/24 Exam# [id number] Ordering Dr: Jesse Angel DO PROCEDURE: ORB [...] ORBITAL FRACTURE OR RETROBULBAR HEMATOMA. Reading Location: [id number] CC: Dr. Diana Salmeron MD; Dr. Jesse Angel DO ~ Supervisor Operations: Signed [facility]04-29-2025 Discharge summary Author Jesse Angel [facility] Note Date/Time October 15, 2024 11: 45pm [facility] Medical Records Department [address] [place] [address] Emergency Department Summary 10/15/24 MR#: [id number] Acct: [id number] Name: ELIZABETH MODI Rep #:[id number] : 1940 84 From: Jesse Grifftih PCP: Dr. Diana Salmeron MD Status:REG ER [...] of his last tetanus. Tetanus Immunization: Unknown [facility] Medical History History of echocardiogram [...] pulmonary disease) Obesity Atherosclerotic heart disease of [place] coronary artery without angina pectoris Paroxysmal atrial fibrillation 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 Essential hypertension Tinea unguium Vitamin D deficiency Edentulous Tobacco dependence in remission Hypothyroidism Diabetes mellitus type 2, uncontrolled Home Medications ?Medication ?Instructions ?Recorded ?Last Taken ?Type levothyroxine 50 mcg tablet 50 mcg PO DAILY 09/01/2108/07/22 History apixaban 2.5 mg tablet (Eliquis) 2.5 [...] Care Provider] - 5-7 Days Print Language: Latvian Disposition Disposition: Home, Self Care What to do if you have Problems For any increased pain, shortness of breath, bleeding, nausea or vomiting, chestpain, or any unexpected problems, contact your Primary Care Provider. Call [facility] ([phone]) or report to the closest Emergency Room. Call 911 if necessary. 10/15/242344 <Electronically signed by Jesse Angel DO> Cosigner Signature (if applicable): CC: Dr. Diana Salmeron MD ~ Signed [facility] Work Phone: 1(721) 603-407304-15-2025 Telephone encounter Note* Telephone Encounter - Yue Huffman - 10/01/2024 2:11 PM EDT May you please submit another order for for Urogram CT. When last appt was canceled the order was not removed from the appt. Sorry for the inconvenience. Marivel PSS [facility]04-15-2025 Miscellaneous Notes* Telephone Encounter - Yue Su - 10/01/2024 2:11 PM EDT May you please submit another order for for Urogram CT. When last appt was canceled the order was not removed from the appt. Sorry for the inconvenience. Marivel PSS [facility] Instructions* Patient Instructions* Nikolai Connor PA-C - 10/01/2024 1:46 PM EDT [facility]25 NoteHNO ID: [id number] Author: NIKOLAI CONNOR PA-C Service: ? Author Type: Physician Lithopone Charger Type: Progress Notes Filed: 10/01/2024 14:58 Note Text: [facility] PATIENT CLINIC NOTE (M) Some elements [...] (ADULTS MULTIVITAMIN ORAL) Take by mouth. 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 Dr. Montgomery in [place] Congestive (more content not included)...[facility]04-15-2025 History of Present illness Narrative* Nikolai Connor PA-C - 10/01/2024 1:42 PM EDT Images from the original note were not included. [facility] EST PATIENT CLINIC NOTE (M) Some elements [...] (ADULTS MULTIVITAMIN ORAL) Take by mouth. vit C,T-Rv-oqpms-lutein-zeaxan (PRESERVISION AREDS-2) 250-90-40-1 mg Take 1 Each [...] kidney disease no dialysis. Dr. Montgomery in [place] Congestive heart failure (HCC) DM (diabetes mellitus) [...] cyanosis, or edema The patient or authorized resources representative has verbally agreed to proceed with [...] cystoscopy (bladder scope) with Dr. Hawk at [facility] has been placed; please turn in [...] Plan: Appointment with Nikolai. [facility]25 NoteHNO ID: [id number] Author: LUKE TAYLOR LPN Service: ? Author Type: LICENSED NURSE Type: Progress Notes Filed: 10/01/2024 14:58 Note Text: Verified name and date of . CC Post Void Residual HPI: Elizabeth Modi is a 84 year old male. The patient is here now for an appointment with Nikolai E. Connor, MPAS, MT, PA-COV. Procedure: Explained procedure to patient and verbalizes understanding. Performed a PVR. Patient urinated and instructed to empty bladder as much as possible just prior to having PVR done using bladder ultrasound scanner. Results of scan: 163 mL The patient tolerated the procedure well. Plan: Appointment with Nikolai.[facility]03-21-2025 Evaluation note* Diagnosis Onset Date Resolution Status Admit Date Fecal incontinence acute September 06, 2024 1:38pm S/P ERCP chronic September 06 1:38pm [facility] Work Phone: 1(794) 445-651503-21-2025 Evaluation note* Diagnosis Onset Date Resolution Status Admit Date Fecal incontinence acute September 06, 2024 1:38pm S/P ERCP chronic September 06 1:38pm Atherosclerotic heart diseas e of [place] coronary artery without angina pectoris chronic October 16, 2024 7:59am Essential hypertension chronic Ap 2024 7:59am Hyperlipidemia chronic September 7:59am Paroxysmal atrial fibrillation chron ic October 16, 2024 7:59am [facility] Work Phone: 1(722) 681-470901-21-2025 Telephone encounter Note* Telephone Encounter - Luke Taylor LPN - 07/09/2024 3:50 PM EST Letter sent to patient that we have not been able to contact Angelic. Luke Taylor LPN [facility]01-21-2025 Miscellaneous Notes* Telephone Encounter - Luke [...] the rest of the testing JAJA Stewart, RITU documented [facility]25 Telephone encounter Note * Telephone Encounter - Luke Taylor LPN - 07/09/2024 3:47 PM EST Called Angel[facility]. No answer- left message to call clinic. Luke Taylor LPN [facility]01-17-2025 Telephone encounter Note* Telephone Encounter - Luke Taylor LPN - 07/05/2024 4:27 PM EST Called [facility]. No answer- left message to call clinic. Luke Taylor LPN [facility]01-14-2025 Telephone encounter Note* Telephone Encounter - Nayeli Dominguez - 07/02/2024 2:24 PM EST Left pt's daughter message to call & schedule cysto with Dr. Prakash Connor. Delmi [facility]01-14-2025 Miscellaneous Notes* Telephone Encounter - Nayeli Dominguez - 07/02/2024 2:24 PM EST Left pt's daughter message to call & schedule cysto with Dr. Prakash Connor. Delmi [facility] History of Present illness Narrative* Luke [...] PATIENT PRESENTS WITH AN IMPLANTABLE OR ATTACHED AEROSOL SUPERVISOR: No ALLERGIES: Reviewed and unchanged CONTRAST ALLERGY: [...] 2024 TIME: 1:57 PM documented in [facility]Bu[facility]01-10-2025 NoteHNO ID: [id number] Author: LUKE WHITMORE RT (R) Service: ? Author Type: [employer] Consultant Type: Progress Notes Filed: 06/28/2024 13:57 Note [...] PATIENT PRESENTS WITH AN IMPLANTABLE OR ATTACHED AEROSOL SUPERVISOR: No ALLERGIES: Reviewed and unchanged CONTRAST ALLERGY: [...] Modi DATE: June 28, 2024 TIME: 1:57 [facility]01-07-2025 Telephone encounter Note* Telephone Encounter - Susan Joy MA - 06/25/2024 8:46 AM EST LM for Angelic to contact office to inform. Susan Joy MA [facility]01-03-2025 Telephone encounter Note* Telephone Encounter - Anaid Payne MA - 06/21/2024 4:28 PM EST ----- Message from Nikolai Connor PA-C sent at 06/21/2024 3:54 PM EST ----- No infection in the urine No cancer cells in urine, please continue the rest of the testing JAJA Stewart, TU DIAZ [facility]12-31-2024 NoteHNO ID: [id number] Author: NIKOLAI CONNOR PA-C Service: ? Author Type: Physician Lithopone Charger Type: Progress Notes Filed: 06/18/2024 16:05 Note Text: [facility] NEW PATIENT CLINIC NOTE SERVICE DATE: June 18, 2024 NAME: Elizabeth Modi CHIEF COMPLAINT: Hematuria HISTORY OF PRESENT ILLNESS: Elizabeth Modi is a 83 year old male an new patient here for The patient reports Hematuria with a few episodes of hematuria Will get Urine sample today for culture and cytology Schedule Cystoscopy at [facility] And CT Urogram at [place] We discussed the need for full hematuria [...] (ADULTS MULTIVITAMIN ORAL) Take by mouth. vit C,Q-Fb-pocsi-lutein-zeaxan (PRESERVISION AREDS-2) 250-90-40-1 mg Take 1 Each [...] kidney disease no dialysis. Dr. Montgomery in [place] Congestive heart failure (HCC) DM (diabetes mellitus) (HCC) PCP follows Dyslipidemia Heart attack (HCC) HTN (hypertension) Hypercholesterolemia Hypothyroidism PVD (peripheral vascular disease) (HCC) Renal mass (more content not included)...[facility]12-31-2024 History of Present illness Narrative* Nikolai Connor PA-C - 06/18/2024 1:26 PM EST Images from the original note were not included. [facility] NEW PATIENT CLINIC NOTE SERVICE DATE: June 18, 2024 NAME: Elizabeth Modi CHIEF COMPLAINT: Hematuria HISTORY OF PRESENT ILLNESS: Elizabeth Modi is a 83 year old male an new patient here for The patient reports Hematuria with a few episodes of hematuria Will get Urine sample today for culture and cytology Schedule Cystoscopy at [facility] And CT Urogram at [place] We discussed the need for full hematuria [...] (ADULTS MULTIVITAMIN ORAL) Take by mouth. vit C,I-Kg-ketgd-lutein-zeaxan (PRESERVISION AREDS-2) 250-90-40-1 mg Take 1 Each [...] kidney disease no dialysis. Dr. Montgomery in [place] Congestive heart failure (HCC) DM (diabetes mellitus) ([facility]) PCP follows Dyslipidemia Heart attack (HCC) HTN [...] JAJA Stewart MT, PA-C documented in this [facility]Bu[facility]12-19-[facility] Evaluation note* Diagnosis Onset Date Resolution Status Admit Date Fecal incontinence acute Decemb er 2023 3:30pm S/P ERCP chronic June 06, 2024 3:30pm Fecal incontinence acute September 06, 2024 1:38pm S/P ERCP chronic September 06 1:38pm [facility] Work Phone: [phone] 333-879002-18-2024 Note. MICRO - Microbiology PROCEDURE: Blood Culture [...] *1: This test was performed at: [facility], [address] [place] [address], [id number]- , [facility] ([place])08-04-2023 Note. MICRO - Microbiology PROCEDURE: Blood Culture [...] *1: This test was performed at: [facility], [address] [place] [address], [id number]- , [facility] ([place])04-16-2023 Note. MICRO - Microbiology PROCEDURE: Culture Wound [...] *1: This test was performed at: [facility], [address] [place] [address], [id number]- , [facility] ([place])03-27-2023 Miscellaneous Notes* Telephone Encounter - Ammy Bradshaw - 03/27/2023 1:44 PM EDT Referral received [facility] for [place] to call and schedule appt. Ammy Bradshaw documented in this encounterBucyrus [facility]03-21-2023 Miscellaneous Notes* Telephone Encounter - Quan Iraheta DO - 09/06/2022 5:03 PM EDT Spoke with patient's nurse at [facility]. Counseled to taper prednisone by 2.5mg weekly [...] agreement with the plan. documented in this encounterBucyrus [facility] Hospital03-21-2023 Miscellaneous Notes* Telephone Encounter - Quan Iraheta DO - 09/06/2022 12:47 PM EDT Attempted to speak with a provider for Mr. Modi at [facility] to disability counselor prednisone taper of 2.5mg q week based upon rheumatology and ophthalmology evaluation not c/w GCA. Phone rang without answer x 2. Will attempt to call again this afternoon. documented in this encounterBucyrus [facility] Hospital03-16-2023 History of Present illness Narrative* Terence Phelps MD - 09/01/2022 2:08 PM EDT ANIMAL ECOLOGIST - Referred by Dr. 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 Eating Habits- No raw meat, not [...] - Being assessed for cataract surgery at [facility] Age related macular degeneration - [...] 01, 2022 3:05 PM documented in this encounterBucyrus Community Hospital03-16-2023 Instructions* Patient Instructions* Shana Delgado MD - 09/01/2022 10:54 AM EDT Labs on the first floor today Eye exam today in [facility] Continue prednisone dose as is pending labs and eye evaluation documented in this encounterBucyrus Community Hospital03-16-2023 History of Present illness Narrative* Shana [...] vascular disease s/p bilateral BKA, CKD, and MT s/p CABG who presents for evaluation of [...] muscle aches or pains Vascular surgery at [facility]: Left temporal artery biopsy 12/24/2021 A. Left [...] many vessels Eye doctor Dr. Lucas at [facility] sent him to [facility] for GCA evaluation [phone], Currently on prednisone 10mg daily since 02/28/2022 [...] kidney disease no dialysis. Dr. Montgomery in [place] Congestive heart failure (HCC) DM (diabetes mellitus) ([facility]) PCP follows Dyslipidemia Heart attack (HCC) HTN (hypertension) Hypercholesterolemia Hypothyroidism PVD (peripheral vascular disease) ([facility]) Renal mass PAST SURGICAL HISTORY: PAST SURGICAL [...] (L56.8) Photosensitivity (I73.9) PVD (peripheral vascular disease) ([facility]) (E11.69) Type 2 diabetes mellitus with other specified complication, without long-term current use of (Z79.52) FCI current use of systemic steroids (E55.9) Vitamin D deficiency Elizabeth Modi is a very pleasant 82 yo male with a past medical history notable for bilateral cataracts, long-standing type 2 diabetes, tobacco use disorder (quit ), peripheral vascular disease s/p bilateral BKA, CKD, hearing loss, and MT s/p CABG who presents for evaluation of [...] Zack Iraheta DO PGY5 Rheumatology Fellow Pager [phone] The above patient was seen and examined [...] arteritis Shana Burton MD documented in this encounterBucyrus [facility] Hospital08-01-2022 Note ORIGINAL EXAMINATION: TWO XRAY [...] Sign Date: 01/17/2022 11:59:11 PM Ordering Provider: [facility]08-01-2022 Note ORIGINAL EXAMINATION: TWO XRAY VIEWS [...] Date: 01/17/2022 11:59:11 PM Ordering Provider: HUNTER FALCONOhiohealth Van [facility] [id number] Note Discharge Instructions Thank you for allowing [...] 01/17/2022 01:00 PM EDT HUNTER FALCON APRN-GURWINDER [facility] Cardiothoracic [facility] Follow Up 02/15/2022 10:00 AM EDT [facility] Follow Up Appointments Follow Up with KARL HIDALGO MD When 02/15/2022 10:00 AM EDT Where: [address] [place] [address] [place] [address]- Follow Up with HUNTER FALCON APRN-GURWINDER When 01/17/2022 01:30 PM EDT Why: please obtain a CXR 1 hour prior to your appt. Where: [address] [facility] [place] [address]- Follow Up with Discharge to [facility] LOC [phone] When Within 1-2 days Follow Up with Cardiac Rehab- [facility] When Why: The Cardiac Rehab department will call you to schedule you for phase 2. We left you a brochurewith information about cardiac rehab. If you have any questions please call [phone]. Where: [facility] [address] [place] [address]- The Following Activity and Diet Have Been [...] surgeon and have chest x-ray done at [place] [facility]., 01/13/22 10:45:00 EDT Other Therapies [...] to receive it can visit one of [facility] vaccine clinics. There are many vaccine clinic locations within the [facility]. For locations and available times, please visit [email or web address].gov/. It is important to note that some COVID mobile vaccine clinics are held outdoors and may be canceled in rainy or stormy conditions. To learn more about pediatric vaccinations (ages 5-11), we invite you to visit the [facility] webpage. https://[email or web address].org/pages/1340-Dekdw-Oesfnmxddwi-Bkjnctxpzq-Nobbe-Orm stions.htmlTo learn more about the COVID-19 vaccine, we invite you to visit the [place] website for a list of frequently asked questions. [email or web address].[email or web address]/assets/Yatgnkyd-utn-Eccydjqz/bpyrq-Abkmbhl-Mdidanczsa _Asked-Questions.pdf [facility] Patient Portal Access Instructions: Stay connected with your healthcare team and access your personal medical information anytime with the [facility] Patient Portal.If you would like a full copy of your medical records, please contact the [facility] Medical Records Department, Monday through Monday between 8a.m. and 4:30p.m. Please follow the directions below to access the portal: 1.Access the email account you provided upon registration to the [facility].2.Look for an invitation email from [facility].3.Open the email and access the invitation link: Accept Invitation to [facility]4.Fill in the required rios to create your account. Sign into [email or web address] with your username and password that you [...] you will allow to register on the [place] [facility] Patient Portal for access to your information. You can also access the [facility] Patient Portal on the [employer] femi. Simply click on "Health Records" under [...] Call your local pharmacy or go to http://bit.ly/0E9Fm8z to find one close to you.3.Make use of household items: Use cat litter or old coffee grounds to dispose medications if other options arenot available. Mix your drugs with these household products, seal them in an airtight container andthrow it into the garbage. Call [facility]: [phone] to be sure your drugs can be [...] been reviewed and explained to me and I,LY ELIZABETH understand my current condition and have read and understand these discharge instructions. I have receiveda written copy of the plan/instructions. If I have questions, I am aware that I should contact my do ctor. Patient/Resident Care Associate Signature: Date/Time: Relationship to Patient: Witness Name/Signature: Date/Time: [facility] [id number] Note ORIGINAL EXAMINATION: ONE XRAY VIEW OF [...] Date: 01/13/2022 6:27:59 AM [facility]ing [facility] Note ORIGINAL EXAMINATION: ONE XRAY VIEW OF [...] Date: 01/13/2022 6:27:59 AM Ordering Provider: YIMI [address]27-2022 Note ORIGINAL EXAMINATION: ONE XRAY VIEW OF [...] Date: 01/12/2022 7:32:39 PM Ordering Provider: YIMI [facility]07-27-2022 Note ORIGINAL EXAMINATION: ONE XRAY VIEW [...] Date: 01/12/2022 7:32:39 PM Ordering Provider: YIMI TORRESSumma [id number] Note Date of Service 01/12/2022 Temporary A and V pacer wires discontinued. Patient tolerated well. Patient instructed to remain bedrest for 1 hour. Digitally Signed by YIMI NEWELL on 01/12/2022 05:06 PM [facility] HospitalQllxetby43-49-3963 Note Date of Service 01/12/2022 Chief Complaint [...] Creatinine elevated 2.3. He was transferred to [facility] for fur ther evaluation. Echocardiogram completed [...] rhythm in the 60s. Transfer to stepdown. [facility] endocrinology following for blood sugar management. POD [...] Central venous access: Left subclavian triple-lumen Disposition: [facility] Current Weight Dosing Weight: 81.5 [...] 7. Diabetes Hgb A1c 8.4% Followed by [place] [facility]. Glucoses ranging 69-1 33. On [...] by YIMI NEWELL on 01/12/2022 04:58 PM [facility] HospitalVljelitr06-07-4895 Note Date of Service 07/14/2021 postop day [...] Creatinine elevated 2.3. He was transferred to [facility] for fur ther evaluation. Echocardiogram completed [...] rhythm in the 60s. Transfer to stepdown. [place] [facility] following for blood sugar management. [...] Will initiate low-dose Lopressor at 6.25 mg, lisinoprilincreased to 40 mg daily, CT of the [...] 09:04 EDT Digitally Signed by PALAK NORMAN APRN-[employer]BER on 01/11/2022 11:18 AM [facility] [id number] Endocrinology Progress note Date of Service 01/11/22 [...] Weinstein on 12/24/2021-on prednisone. [facility] He presented to [facility] on December 30, 2021 due to a sudden onset of alteredmental status and shortness of breath. At [facility], he was noted to have acute kidney injury with creatinine 2.3 and elevated troponin at 3577. EKG revealed normal sinus rhythm without evidenceof ST elevation or depression. Negative for COVID-19 at [facility]. He was transferred to [facility] for further evaluation. Echocardiogram on December 30, 2021 revealed an EF of 45 to 50% and mild MR. 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 Cardiothoracic surgery was consulted for possible surgical myocardial vascularization. 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 Endocrine consult placed by [facility] for diabetic management. Longstanding type II diabetic with A1c of 8.4%. Currently residing at [facility] with orders in place for Humalog 32 [...] 10 units qhs, metformin 500 twice daily, Nvngvjlhk67on qd and a 0-10 sliding scale with [...] CASPER MURRY on 01/11/2022 11:35 AM [facility] [id number] Note ORIGINAL EXAMINATION: CT OF THE CHEST [...] Sign Date: 01/10/2022 4:43:27 PM Ordering Provider: [facility]07-25-2022 Endocrinology Progress note Date of Service [...] Weinstein on 12/24/2021-on prednisone. He resides at [facility] past 3 months. He presented to [facility] on December 30, 2021 due to a sudden onset of alteredmental status and shortness of breath. At [facility], he was noted to have acute kidney injury with creatinine 2.3 and elevated troponin at 3577. EKG revealed normal sinus rhythm without evidenceof ST elevation or depression. Negative for COVID-19 at [facility]. He was transferred to [facility] for further evaluation. Echocardiogram on December 30, 2021 revealed an EF of 45 to 50% and mild MR. 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 Cardiothoracic surgery was consulted for possible surgical myocardial vascularization. 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 Endocrine consult placed by [facility] for diabetic management. Longstanding type II diabetic with A1c of 8.4%. Currently residing at [facility] with orders in place for Humalog 32 [...] CASPER MURRY on 01/10/2022 04:44 PM [facility] [id number] Note ORIGINAL EXAMINATION: CT OF THE CHEST [...] Sign Date: 01/10/2022 4:43:27 PM Ordering Provider: [facility]07-25-2022 Note Date of Service 01/10/2022 Chief Complaint [...] Creatinine elevated 2.3. He was transferred to [facility] for further evaluation. Echocardiogram completed showing [...] NICHOLE RODRIGUEZ on 01/10/2022 08:37 AM [facility] [id number] Note Date of Service 01/09/2022 Repeat INR 6.3. Aquamephyton 10 mg SQ x1. Repeat INR in 4 hours. Digitally Signed by KASSIDY SHANKAR on 01/09/2022 02:03 PM [facility] HospitalPekwypla54-55-8114 Endocrinology Progress note Date of Service 01/09/22 [...] Weinstein on 12/24/2021-on prednisone. [facility]. He presented to [facility] on December 30, 2021 due to a sudden onset of alteredmental status and shortness of breath. At [facility], he was noted to have acute kidney injury with creatinine 2.3 and elevated troponin at 3577. EKG revealed normal sinus rhythm without evidenceof ST elevation or depression. Negative for COVID-19 at [facility]. He was transferred to [facility] for further evaluation. Echocardiogram on December 30, 2021 revealed an EF of 45 to 50% and mild MR. 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 Cardiothoracic surgery was consulted for possible surgical myocardial vascularization. 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 Endocrine consult placed by [facility] for diabetic management. Longstanding type II diabetic with A1c of 8.4%. Currently residing at [facility] with orders in place for Humalog 32 [...] MONREAL MD on 01/09/2022 01:13 PM [facility] [id number] Note Date of Service 01/09/2022 POD #4 [...] elevated 2.3. He was transferred to [facility] for further evaluation. Echocardiogram completed showing [...] Continue Central Line: For IV access Disposition: [facility] Weight Current Weight Dosing Weight: 81.5 [...] baseline, plan follow-up with Dr. Montgomery from [place] at discharge currently NSR rate 60, Coumadin on hold secondary to elevated INR 4.8. 5. CKD (chronic kidney disease), stage III 6. AF (paroxysmal atrial fibrillation) Currently NSR rate 60, Coumadin on hold secondary to elevated INR 4.8.Repeat INR at noon. On amiodarone. Home amiodarone and Eliquis were both discontinued in August 2021 7. Diabetes Hgb A1c 8.4% Glucose 68-177, [place] [facility] following 8. HTN (hypertension) Blood [...] KASSIDY SHANKAR on 01/09/2022 11:51 AM [facility] [id number] Note ORIGINAL EXAMINATION: TWO XRAY VIEWS OF [...] 01/09/2022 7:51:53 AM Ordering Provider: TRINY HERNANDEZ [facility] [id number] Note ORIGINAL EXAMINATION: TWO XRAY VIEWS OF [...] Date: 01/09/2022 7:51:53 AM Ordering Provider: [facility] Endocrinology Progress note Date of Service 01/08/22 [...] Glucose, Capillary 01/08/2022 16:28:00 EDT 132 mg/dL GA 82-115 Glucose Testing Blood Glucose, Capillary 01/08/2022 [...] Weinstein on 12/24/2021-on prednisone. He resides at [facility] past 3 months. He presented to [facility] on December 30, 2021 due to a sudden onset of alteredmental status and shortness of breath. At [facility], he was noted to have acute kidney injury with creatinine 2.3 and elevated troponin at 3577. EKG revealed normal sinus rhythm without evidenceof ST elevation or depression. Negative for COVID-19 at [facility]. He was transferred to [facility] for further evaluation. Echocardiogram on December 30, 2021 revealed an EF of 45 to 50% and mild MR. 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 Cardiothoracic surgery was consulted for possible surgical myocardial vascularization. 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 Endocrine consult placed by [facility] for diabetic management. Longstanding type II diabetic with A1c of 8.4%. Currently residing at [facility] with orders in place for Humalog 32 [...] MONREAL MD on 01/08/2022 05:20 PM [facility] HospitalXhdwtsvo03-08-4553 Note Date of Service 01/08/2022 POD #3 [...] elevated 2.3. He was transferred to [facility] for further evaluation. Echocardiogram completed showing [...] episodes of bradycardia. Plans [facility] atdischarge Subjective No complaints Objective Vitals and [...] follow-up with Dr. Montgomery from [facility] at discharge, Urineoutput 1100 cc last 24 hours 5. CKD (chronic kidney disease), stage III 6. AF (paroxysmal atrial fibrillation) Currently atrial fibrillation rate 90, Coumadin, amiodarone, patient had previously been on amiodarone and Eliquis but these were discontinued in August 2021 7. Diabetes Hgb A1c 8.4% Glucose 141-249, [place] [facility] following 8. HTN (hypertension) Blood [...] KASSIDY SHANKAR on 01/08/2022 11:02 AM [facility] [id number] Note ORIGINAL EXAMINATION: ONE XRAY VIEW OF [...] Sign Date: 01/08/2022 7:49:49 AM Ordering Provider: [facility]07-23-2022 Note ORIGINAL EXAMINATION: ONE XRAY VIEW [...] Sign Date: 01/08/2022 7:49:49 AM Ordering Provider: [facility]07-22-2022 Nephrology Progress note Date of Service 01/07/2022 [...] (Oral) HR: 65(Monitored) RR: 18 BP: 150/58 SpO2:94% WT: 105.7 kg Physical Exam HEENT: PERRLA [...] renal standpoint. Patient will follow with his specialty sales consultant Dr. Montgomery in [place] on discharge. Discussed with patient. Digitally Signed by TAMIKA RODAS MD on 01/07/2022 12:42 PM [facility] [id number] Note ORIGINAL EXAMINATION: TWO XRAY VIEWS OF [...] 01/07/2022 12:23:59 PM Ordering Provider: BARRERA SALES [facility] [id number] Endocrinology Progress note Date of Service 01/07/22 [...] Weinstein on 12/24/2021-on prednisone. [facility]. He presented to [facility] on December 30, 2021 due to a sudden onset of alteredmental status and shortness of breath. At [facility], he was noted to have acute kidney injury with creatinine 2.3 and elevated troponin at 3577. EKG revealed normal sinus rhythm without evidenceof ST elevation or depression. Negative for COVID-19 at [facility]. He was transferred to [facility] for further evaluation. Echocardiogram on December 30, 2021 revealed an EF of 45 to 50% and mild MR. 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 Cardiothoracic surgery was consulted for possible surgical myocardial vascularization. 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 Endocrine consult placed by [facility] for diabetic management. Longstanding type II diabetic with A1c of 8.4%. Currently residing at [facility] with orders in place for Humalog 32 [...] by CASPER MURRY on 01/07/2022 04:39 PM [facility] [id number] Note Date of Service 01/07/2022 Chief Complaint [...] and shortness of breath. He resides at [facility]. He denied having any chest pain or syncope. He was found to have an acute kidney injury at that time with creati nine of 2.3 and a troponin of 3577 at [facility]. He was transferred to [place] for further evaluation where an echocardiogram revealed [...] Central venous access: Left subclavian triple-lumen Disposition: [facility] Weight Current Weight Dosing Weight: 81.5 kg [...] 7. Diabetes Hgb A1c 8.4% Followed by [place] [facility]. Glucoses ranging 96-1 55. On [...] YIMI NEWELL on 01/07/2022 10:01 AM [facility] HospitalJatnpair43-24-7314 Anesthesiology Consult note Patient: ELIZABETH MODI Age: [...] RICHARD DO on 01/07/2022 08:18 AM [facility] [id number] Note ORIGINAL EXAMINATION: TWO XRAY VIEWS OF [...] Sign Date: 01/07/2022 12:23:59 PM Ordering Provider: [facility]07-21-2022 Nephrology Progress note Date of Service [...] RODAS MD on 01/06/2022 10:19 AM [facility] [id number] Endocrinology Progress note Date of Service 01/06/22 [...] Glucose Level 01/05/2022 12:54:00 EDT 147 mg/dL GA 82-115 Glucose Testing Blood Glucose, Capillary 01/05/2022 [...] Weinstein on 12/24/2021-on prednisone. [facility]. He presented to [facility] on December 30, 2021 due to a sudden onset of alteredmental status and shortness of breath. At [facility], he was noted to have acute kidney injury with creatinine 2.3 and elevated troponin at 3577. EKG revealed normal sinus rhythm without evidenceof ST elevation or depression. Negative for COVID-19 at [facility]. He was transferred to [facility] for further evaluation. Echocardiogram on December 30, 2021 revealed an EF of 45 to 50% and mild MR. Cardiac catheterization completed showing multivessel disease.Cardiothoracic surgery has been consulted for possible surgical myocardial vascularization. Endocrine consult placed by [facility] for diabetic management. Longstanding type II diabetic with A1c of 8.4%. Currently residing at [facility] with orders in place for Humalog 32 [...] CASPER MURRY on 01/06/2022 04:03 PM [facility] [id number] Note Date of Service 01/06/2022 Chief Complaint [...] and shortness of breath. He resides at [facility]. He denied having any chest pain or syncope. He was found to have an acute kidney injury at that time with creati nine of 2.3 and a troponin of 3577 at [facility]. He was transferred to [place] for further evaluation where an echocardiogram revealed [...] 1 45, on insulin drip per the [facility] ICU glycemic protocol at 8 units/h, endocrinology [...] BARRERA SALES on 01/06/2022 07:42 AM [facility]kqdjyzk65[facility]80-8500 Note ORIGINAL EXAMINATION: ONE XRAY VIEW OF [...] 01/06/2022 6:18:00 AM Ordering Provider: TRINY HERNANDEZ [facility] HospitalYjxskomv86-00-8890 Note ORIGINAL EXAMINATION: ONE XRAY VIEW OF [...] Date: 01/06/2022 6:18:00 AM Ordering Provider[facility] Cardiology Progress note Date of Service 01/05/22 [...] CLAROS MD on 01/05/2022 02:25 PM [facility] HospitalRclzezfx61-15-7428 Nephrology Progress note Date of Service 01/05/2022 [...] RODAS MD on 01/05/2022 02:15 PM [facility] HospitalSqrvjokl76-27-0063 Note ORIGINAL HISTORY: Line placement COMPARISON: 5 [...] Sign Date: 01/05/2022 1:24:35 PM Ordering Provider: [facility]07-20-2022 Note ORIGINAL HISTORY: Nasogastric tube placement COMPARISON: No FINDINGS: There is a nasogastric tube with tip in the stomach and side hole at the gastroesophageal junction. Interpreted by: Zack Bucio MD Preliminary Report By: Zack Bucio MD Electronically signed By Zack Bucio MD Dictated Date: 01/05/2022 1:22:43 PM Prelim Date: 01/05/2022 1:23:19 PM Sign Date: 01/05/2022 1:23:19 PM Ordering Provider: [facility]07-20-2022 Note ORIGINAL HISTORY: Line placement COMPARISON: [...] Sign Date: 01/05/2022 1:24:35 PM Ordering Provider: [facility]07-20-2022 Note ORIGINAL HISTORY: Nasogastric tube placement COMPARISON: No FINDINGS: There is a nasogastric tube with tip in the stomach and side hole at the gastroesophageal junction. Interpreted by: Zack Bucio MD Preliminary Report By: Zack Bucio MD Electronically signed By Zack Bucio MD Dictated Date: 01/05/2022 1:22:43 PM Prelim Date: 01/05/2022 1:23:19 PM Sign Date: 01/05/2022 1:23:19 PM Ordering Provider: [facility]07-20-2022 Cardiology Progress note Date of [...] CLAROS MD on 01/05/2022 02:25 PM [facility] HospitalAedqbcke80-14-6730 Anesthesiology Consult note Patient: ELIZABETH MODI Age: [...] kidney disease), stage III / SNOMED CT 6404738095 / Confirmed CAD (coronary artery disease) / SNOMED CT 29297985 / Confirmed Diabetes / SNOMED CT 594646474 / Confirmed History of Singh's palsy / SNOMED CT 651649694 / Confirmed HLD (hyperlipidemia) / SNOMED CT 37203717 / Confirmed HTN (hypertension) / SNOMED CT 5909179172 / Confirmed Hypothyroid / SNOMED CT 47325636 / Confirmed QUIN (acute kidney injury) / SNOMED CT 95777236 / Confirmed Mood disorder / SNOMED CT 80324345 / Confirmed NSTEMI (non-ST elevated myocardial infarction) / SNOMED CT 65338870 / Confirmed AF (paroxysmal atrial fibrillation) / SNOMED CT 303319595 / Confirmed PVD (peripheral vascular disease) / SNOMED CT 9607226108 / Confirmed Giant cell arteritis / SNOMED CT 4861530680 / Confirmed, Active Problems (24) AF (paroxysmal atrial fibrillation) QUIN (acute kidney injury) CAD (coronary artery disease) Cataract CKD (chronic kidney disease), stage III COPD (chronic obstructive pulmonary disease) Depression Diabetes DM (diabetes mellitus) Giant cell arteritis Giant cell arteritis syndrome Glasses Heart disease High blood pressure History of Singh's palsy HLD (hyperlipidemia) HTN (hypertension) Hypothyroid Kidney disease MT (myocardial infarction) Mood disorder NSTEMI (non-ST elevated myocardial infarction) PVD (peripheral vascular disease) Tachycardia Histories Past Medical History: No active or resolved past medical history items have been selected or recorded. Family History: No family history items have been selected or recorded. Procedure history: Amputation ([id number]) in 2020 at 79 Years. Comments: 07/12/2021 14:23 Maria Esther Navarro RN Left below the knee Amputation ([id number]) in 2020 at 79 Years. Comments: 07/12/2021 14:24 Maria Esther Navarro RN right below the knee amputation Catheter ([id number]) in 2020 at 79 Years. Comments: 07/12/2021 14:25 Maria Esther Navarro RN Temporary dialysis cath None ([id number]). 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 Patient Dressed In Hospital gown [...] On and Limits Checked Nail Bed Color [place] Capillary Refill < 2 seconds Heart Sounds [...] Warm Temperature All Extremities Warm Skin Description [place], Normal for ethnicity, Dry Skin Integrity Pressure points intact Skin Turgor Elastic Mucous Membrane Color [place] Mucous Membrane Description Moist Sensory Perception Dre [...] Rhythm Sinus rhythm Monitoring Lead II, V1/MCL1 NH Interval 0.17 second(s) QRS Duration 0.12 second(s) [...] Transport Mode Order Detail MTT with Monitor Ultrasonic Seaming Machine Operator Details Form Ultrasonic Seaming Machine Operator Details Form 01/05/2022 0:28 EDT Skin [...] Transport Mode Order Detail MTT with Monitor Ultrasonic Seaming Machine Operator Details Form Ultrasonic Seaming Machine Operator Details Form 01/04/2022 23:29 EDT heparin [...] On and Limits Checked Nail Bed Color [place] Capillary Refill < 2 seconds Heart Sounds ICU S1S2 Heart Rhythm Regular Radial Pulse, Left 2+ Normal Radial Pulse, Right 2+ Normal Popliteal Pulse, Left 1+ Thready Popliteal Pulse, Right 1+ Thready Edema Generalized None Cardiac Rhythm Sinus rhythm Monitoring Lead II, V1/MCL1 NH Interval 0.18 second(s) QRS Duration 0.12 second(s) QT Interval 0.47 second(s) QTc Interval 0.48 second(s) Alarms On and Functional Yes Respirations Unlabored Respiratory Pattern Regular Breath Sounds Auscultated Anterior only All Lobes Breath Sounds Clear Oxygen Therapy Room air Abdomen Description Non-distended, Symmetric, Soft Abdomen Palpation Non-Tender Bowel Sounds All Quadrants Present Urinary Elimination Voiding, no difficulties All Extremity Description [place], Normal for ethnicity Skin Temperature Warm Temperature All Extremities Warm Skin Description [place], Normal for ethnicity Mucous Membrane Color [place] Mucous Membrane Description Moist Leg Bilateral Skin [...] 21:26 EDT Blood Glucose, Capillary 206 mg/dL GA Blood Glucose Testing Reason Routine 01/04/2022 19:40 EDT Temperature Oral 36.6 DegC Reason For Taking VItal Signs Routine Primary Pain Intensity 0 Primary Pain Nonverbal Response Appears restful Pain Scale Type 0-10 Pain scale Monitor Alarms On and Limits Checked Nail Bed Color [place] Capillary Refill < 2 seconds Heart Sounds ICU S1S2 Heart Rhythm Regular Radial Pulse, Left 2+ Normal Radial Pulse, Right 2+ Normal Popliteal Pulse, Left 1+ Thready Popliteal Pulse, Right 1+ Thready Edema Generalized None Cardiac Rhythm Sinus rhythm Monitoring Lead II, V1/MCL1 NH Interval 0.19 second(s) QRS Duration 0.12 second(s) [...] Facial Movement Symmetric resting/crying All Extremity Description [place], Normal for ethnicity Skin Temperature Warm Temperature All Extremities Warm Skin Description [place], Normal for ethnicity Skin Integrity Pressure points intact Skin Turgor Elastic Mucous Membrane Color [place] Mucous Membrane Description Moist Sensory Perception Dre [...] Symptoms Bruising Skin Temperature Warm Skin Description [place], Normal for ethnicity Skin Integrity Intact Skin Turgor Elastic Mucous Membrane Color [place] Mucous Membrane Description Moist Sensory Perception Dre [...] On and Limits Checked Nail Bed Color [place] Capillary Refill < 2 seconds Heart Sounds [...] Facial Movement Symmetric resting/crying All Extremity Description [place], Normal for ethnicity Skin Temperature Warm Temperature All Extremities Warm Skin Description [place], Normal for ethnicity Skin Integrity Pressure points intact Skin Turgor Non-Elastic Mucous Membrane Color [place] Mucous Membrane Description Moist Leg Bilateral Skin [...] Rhythm Sinus rhythm Monitoring Lead III, V1/MCL1 NH Interval 0.20 second(s) QRS Duration 0.09 second(s) [...] mEq predniSONE 10 mg mg vitamin A 51987 unit(s) unit(s) 01/04/2022 8:39 EDT Heart Rate Monitored 59 bpm LOW Reason For Taking VItal Signs Routine Primary Pain Intensity 0 Primary Pain Nonverbal Response Nods No Pain Scale Type 0-10 Pain scale Monitor Alarms On and Limits Checked Nail Bed Color [place] Capill (more content not included)... [facility] HospitalJlqpazxi62-28-5650 Cardiology Progress note Date of Service 01/04/22 [...] CLAROS MD on 01/04/2022 02:59 PM [facility] HospitalXlsfffoz00-17-9233 Cardiology Progress note Date of Service 01/04/22 [...] CLAROS MD on 01/04/2022 02:59 PM [facility] HospitalXehtoxvk09-10-5558 Endocrinology Progress note Date of Service 01/04/22 [...] Weinstein on 12/24/2021-on prednisone. [facility] He presented to [facility] on December 30, 2021 due to a sudden onset of alteredmental status and shortness of breath. At [facility], he was noted to have acute kidney injury with creatinine 2.3 and elevated troponin at 3577. EKG revealed normal sinus rhythm without evidenceof ST elevation or depression. Negative for COVID-19 at [facility]. He was transferred to [facility] for further evaluation. Echocardiogram on December 30, 2021 revealed an EF of 45 to 50% and mild MR. Cardiac catheterization completed showing multivessel disease.Cardiothoracic surgery has been consulted for possible surgical myocardial vascularization. Endocrine consult placed by [facility] for diabetic management. Longstanding type II diabetic with A1c of 8.4%. Currently residing at [facility] with orders in place for Humalog 32 [...] CASPER MURRY on 01/04/2022 04:05 PM [facility] HospitalMmhatfoh60-23-9061 Note ORIGINAL EXAMINATION: CTA OF THE NECK [...] Sign Date: 01/04/2022 9:39:34 AM Ordering Provider: [facility]07-18-2022 Cardiology Progress note Date of [...] - ipratropium 2.5 mg-0.5 mg/3 mL Inhal Salyl UD 3 mL, Inhalation, q4hRT heparin 5,000 [...] Result Date: December 31, 2021 Verified By: ANNALEE DO, SJ CLINICAL STATEMENT: IMPRESSION: 1. Diffuse interstitial opacities/interstitial [...] CLAROS MD on 01/03/2022 06:35 PM [facility] HospitalIxdlsrbm47-41-9983 Note ORIGINAL EXAMINATION: CTA OF THE NECK [...] Date: 01/04/2022 9:39:34 AM Ordering Provider: [facility]07-18-2022 Nurse Progress note Called CT, they said patient okay to come to CT with contrast after having metformin this AM 01/03/22. Pharmacy said to check with prescriber. Dr. Claros said patient okay to go to CT with contrast after taking metformin this AM 01/03/22. Digitally Signed by Macy Bolanos RN on 01/03/2022 04:45 PM [facility] HospitalOepvugpo22-78-8524 Cardiology Progress note Date of Service 01/03/22 [...] CLAROS MD on 01/03/2022 06:35 PM [facility] HospitalGrfhdfbh03-81-8561 Nephrology Progress note Date of Service 01/03/2022 [...] RODAS MD on 01/03/2022 10:59 AM [facility] HospitalMqzbvmfj50-69-4102 Endocrinology Progress note Date of Service 01/03/22 [...] Glucose, Capillary 01/03/2022 07:10:00 EDT 174 mg/dL GA 82-115 Glucose Testing Glucose Level 01/03/2022 03:44:00 EDT 157 mg/dL GA 82-115 Glucose Testing Blood Glucose, Capillary 01/02/2022 21:13:00 EDT 222 mg/dL HI 82-115 Glucose Testing Blood Glucose, Capillary 01/02/2022 16:20:00 EDT 247 mg/dL GA 82-115 Glucose Testing Blood Glucose, Capillary 01/02/2022 11:29:00 EDT 177 mg/dL GA 82-115 EKG No qualifying data available. Assessment/Plan [...] Weinstein on 12/24/2021-on prednisone. [facility] He presented to [facility] on December 30, 2021 due to a sudden onset of alteredmental status and shortness of breath. At [facility], he was noted to have acute kidney injury with creatinine 2.3 and elevated troponin at 3577. EKG revealed normal sinus rhythm without evidenceof ST elevation or depression. Negative for COVID-19 at [facility]. He was transferred to [facility] for further evaluation. Echocardiogram on December 30, 2021 revealed an EF of 45 to 50% and mild MR. Cardiac catheterization completed showing multivessel disease.Cardiothoracic surgery has been consulted for possible surgical myocardial vascularization. Endocrine consult placed by [facility] for diabetic management. Longstanding type II diabetic with A1c of 8.4%. Currently residing at [facility] with orders in place for Humalog 32 [...] CASPER MURRY on 01/03/2022 11:17 AM [facility] HospitalDrbqwded59-62-4614 Cardiology Progress note Date of Service 01/02/2022 [...] ALMODOVAR MD on 01/02/2022 04:22 PM [facility] HospitalPkeccnhv30-72-3097 Cardiology Progress note Date of Service 01/02/2022 [...] ALMODOVAR MD on 01/02/2022 04:22 PM [facility] HospitalTzqlzide52-72-9679 Endocrinology Progress note Date of Service 01/02/22 [...] Glucose, Capillary 01/01/2022 18:20:00 EDT 131 mg/dL GA 82-115 Glucose Testing Blood Glucose, Capillary 01/01/2022 [...] Weinstein on 12/24/2021-on prednisone. He resides at [facility] past 3 months. He presented to [facility] on December 30, 2021 due to a sudden onset of alteredmental status and shortness of breath. At [facility], he was noted to have acute kidney injury with creatinine 2.3 and elevated troponin at 3577. EKG revealed normal sinus rhythm without evidenceof ST elevation or depression. Negative for COVID-19 at [facility]. He was transferred to [facility] for further evaluation. Echocardiogram on December 30, 2021 revealed an EF of 45 to 50% and mild MR. Cardiac catheterization completed showing multivessel disease.Cardiothoracic surgery has been consulted for possible surgical myocardial vascularization. Endocrine consult placed by [facility] for diabetic management. Longstanding type II diabetic with A1c of 8.4%. Currently residing at [facility] with orders in place for Humalog 32 [...] same inpatient. Last 24 Hours: Met w/ tour narrator; appreciate input and teaching. Current orders are in place for a 2-18 sliding scale with meals and at bedtime alone. Blood glucose this morning with the same 91. Discussed with [facility] ANIMAL ECOLOGIST Katelynn. [facility] work-up continues. No definitive date for CABG. Add low-dose metformin 500 mg twice daily. Hold off on SGLT2 until postop. GLP analog could be considered outpatient. Reintroduction of basal IP as needed. Discussed with bedside RN Will continue to follow while inpatient. Time Spent Total time spent 25 minutes Digitally Signed by CASPER MURRY on 01/02/2022 01:55 PM [facility] HospitalAsctjvtn60-90-2305 Nurse Progress note A student nurse administered medications and completed assessments on this patient under my supervision this evening. Nayeli Beckham RN Digitally Signed by YURI Beckham on 01/02/2022 01:02 AM [facility] HospitalJerqywnq46-21-0835 Cardiology Progress note Date of Service 01/01/2022 [...] multivessel disease (official cath report pending at thetime of this dictation). Cardiothoracic surgery has been [...] ALMODOVAR MD on 01/01/2022 08:04 PM [facility] HospitalYskwulfh75-66-1580 Cardiology Progress note Date of Service 01/01/2022 [...] ALMODOVAR MD on 01/01/2022 08:04 PM [facility] HospitalUefjdnhw78-65-7182 Note I saw and evaluated the patient on 01/01/2022. I agree with the ADMISSION SPECIALIST note of 12/31/2021. The patient is an [...] HERNANDEZ MD on 01/01/2022 10:53 AM [facility] HospitalTtcflmtg99-23-4172 Cardiothoracic surgery Consult note Date of Service [...] Weinstein on 12/24/2021-on prednison. He resides at [facility] for the past 3 months. He presented to [facility] on December 30, 2021 due to a sudden onset of altered mental status and shortness of breath. He endorses nonproductive cough. Denied any chest pain or syncope. At [facility], he was noted to have acute kidney injury with creatinine 2.3 and elevated troponinat 3577. EKG revealed normal sinus rhythm without evidence of ST elevation or depression. Negative for COVID-19 at [facility]. He was transferred to [facility] for further evaluation. Echocardiogram on December [...] follows with Dr. Montgomery of nephrology in [place]. 5. AF (paroxysmal atrial fibrillation) Currently in [...] from EMR and transfer alf documentation, conducting ksfu-ji-kngg visit with patient at bedside, and dictating [...] Patient denies Living arrangements: Currently lives at [facility] however lived at home prior to [...] NEWELL APRN-GURWINDER on 12/31/2021 05:21 PM [facility] HospitalPpmpzlfo04-44-3766 Endocrinology Consult note Date of Service 01/01/22 [...] Weinstein on 12/24/2021-on prednisone. He resides at [facility] for[facility] past 3 months. He presented to [facility] on December 30, 2021 due to a sudden onset of alteredmental status and shortness of breath. At [facility], he was noted to have acute kidney injury with creatinine 2.3 and elevated troponin at 3577. EKG revealed normal sinus rhythm without evidenceof ST elevation or depression. Negative for COVID-19 at [facility]. He was transferred to [facility] for further evaluation. Echocardiogram on December [...] Managed by his PCP. Currently resides at [facility]. He is unable to speak to his [...] not caring much for the food at [facility]. He reports weight of 156 p ounds [...] thyroid disease but does have orders per [facility] for levothyroxine 50 mcg daily and carries [...] Subcutaneous, achs, NOW, 0, 01/01/22 8:24:00 EDT [employer] Diet Consult to Diabetes Education [...] Weinstein on 12/24/2021-on prednisone. He resides at [facility] past 3 months. He presented to [facility] on December 30, 2021 due to a sudden onset of alteredmental status and shortness of breath. At [facility], he was noted to have acute kidney injury with creatinine 2.3 and elevated troponin at 3577. EKG revealed normal sinus rhythm without evidenceof ST elevation or depression. Negative for COVID-19 at [facility]. He was transferred to [facility] for further evaluation. Echocardiogram on December 30, 2021 revealed an EF of 45 to 50% and mild MR. Cardiac catheterization completed showing multivessel disease.Cardiothoracic surgery hasbeen consulted for possible surgical myocardial vascularization. Endocrine consult placed by [facility] for diabetic management. Longstanding type II diabetic with A1c of 8.4%. Currently residing at [facility] with orders in place for Humalog 32 [...] CASPER MURRY on 01/01/2022 03:38 PM [facility] HospitalNkanhcra69-62-7289 Nephrology Progress note Date of Service 01/01/2022 [...] RODAS MD on 01/01/2022 09:57 AM [facility] HospitalJxfnizbf59-09-2602 Nephrology Progress note Date of Service 01/01/2022 [...] RODAS MD on 01/01/2022 09:57 AM [facility] HospitalKjrnydpd87-03-4516 Cardiothoracic surgery Consult note Date of Service [...] Weinstein on 12/24/2021-on prednison. He resides at [facility] for the past 3 months. He presented to [facility] on December 30, 2021 due to a sudden onset of altered mental status and shortness of breath. He endorses nonproductive cough. Denied any chest pain or syncope. At [facility], he was noted to have acute kidney injury with creatinine 2.3 and elevated troponinat 3577. EKG revealed normal sinus rhythm without evidence of ST elevation or depression. Negative for COVID-19 at [facility]. He was transferred to [facility] for further evaluation. Echocardiogram on December [...] follows with Dr. Montgomery of nephrology in [place]. 5. AF (paroxysmal atrial fibrillation) Currently in [...] from EMR and transfer alf documentation, conducting hbct-nj-utsf visit with patient at bedside, and dictating [...] tablet, 10 mg= 1 tab(s), Oral, qDay [employer] Max SoloStar 300 units/mL subcutaneous solution, 100 unit(s), Subcutaneous, qHS, Investigating Allergies NKA Social History Tobacco use: Former user, quit 40 years ago Alcohol use: Occasional Illicit drug use: Patient denies Living arrangements: Currently lives at [facility] however lived at home prior to Ambulatory [...] YIMI NEWELL on 12/31/2021 05:21 PM [facility] HospitalOuylyoca81-12-9551 Nephrology Progress note Date of Service 12/31/2021 [...] RODAS MD on 12/31/2021 11:26 AM [facility] HospitalEpqiwbmf13-26-4991 Note ORIGINAL EXAMINATION: ONE XRAY VIEW OF [...] Date: 12/31/2021 8:13:17 AM Ordering Provider: [facility]07-14-2022 History and physical note Date of Service 12/30/2021 Chief Complaint chest pain History of Present Illness This is a 81-year-old male, alf resident with prior history of atrial fibrillation, type 2diabetes, hypothyroidism, mood disorder, bilateral BKA's, hyperlipidemia who presented to due toaltered mental status. He was there diagnosed with non-ST elevation MT with troponin elevation of 3000 and uptrending. Patient also had an QUIN with creatinine 2.3. Currently patient denies any chest pain or palpitations. He denies prior history of coronary artery disease. However on further questioning does endorse he may have had a left heart catheterization at [facility] 1 year ago. Patient is a poor [...] 36 Hour Lab Data Assessment/Plan Non-ST elevation MT ? history of atrial fibrillation on Eliquis, [...] LEÓN MD on 12/30/2021 10:03 AM [facility] HospitalNmqofiuk01-71-5240 Evaluation + Plan noteExtracted from: Title:History and Physical Author:HASEEB DE LEÓN MD Date:12/30/21 Non-ST elevation MT ? history of atrial fibrillation on Eliquis, [...] Date:01/17/2022 01:00:00 PM Scheduled Provider:HUNTER FALCON Location:[facility] Appointment Type:[facility] Post Op Appointment Date:02/15/2022 10:00:00 AM Scheduled Provider: Location:[facility] Appointment Type:[facility] 07-14-2022 Nephrology Consult note Date of Service 12/30/2021 Reason for Consultation Stage III CKD, needs clearance for cardiac catheterization. Referring Physician Dr. Hidalgo. History of Present Illness Mr. Modi is a very pleasant 81-year-old gentleman with past medical history of hypertension, diabetes, atrial fibrillation on anticoagulation, hypothyroidism who is a resident of nursing facility in [place]. Patient was sent to [facility] due to altered mental status. He was also having chest pain. Initial lab work done at [facility] showed elevated troponin in the range of 3000.Patient was diagnosed with acute non-STEMI. He was transferred to [facility] for further management. He also had acute renal failure with creatinine of around 2.3 at ER. Repeat blood work in [place] showed that his creatinine has improved to 1.9. Patient does have history of CKD and follows with Dr. Montgomery in [place]. Dr. Montgomery does not have privileges at [facility]. Renal consultation was requested for acute [...] pain. He has been at alf in [place] from July 2021. Per family he is going to be at the alf long-term. Patient developed c hest pain and altered mental status at alf for which he was sent to ER. Over there he was diagnosed with acute non-STEMI with elevated troponin levels and eventually transferred to [facility]. His home medication list includes JERO inhibitor. [facility] Review of all other systems is [...] RODAS MD on 12/30/2021 11:57 AM [id number] History and physical note Date of Service 12/30/2021 Chief Complaint chest pain History of Present Illness This is a 81-year-old male, alf resident with prior history of atrial fibrillation, type 2diabetes, hypothyroidism, mood disorder, bilateral BKA's, hyperlipidemia who presented to due toaltered mental status. He was there diagnosed with non-ST elevation MT with troponin elevation of 3000 and uptrending. Patient also had an QUIN with creatinine 2.3. Currently patient denies any chest pain or palpitations. He denies prior history of coronary artery disease. However on further questioning does endorse he may have had a left heart catheterization at [facility] 1 year ago. Patient is a poor [...] 36 Hour Lab Data Assessment/Plan Non-ST elevation MT ? history of atrial fibrillation on Eliquis, [...] age: 55 Years., 07/12/2021 Immunizations SARS-CoV-2 (COVID-19) mRNA-6379 vaccine: 0.3 unknown unit (05/21/21) SARS-CoV-2 (COVID-19) mRNA-1273 vaccine: 0 unknown unit (10/13/20) SARS-CoV-2 (COVID-19) mRNA-1273 vaccine: 0 unknown unit (09/15/20) Code Status Code Status - Ordered -- 12/30/21 6:48:00 EDT, Full Code, Constant Order Digitally Signed by HASEEB DE LEÓN MD on 12/30/2021 10:03 AM [id number] Hospital Discharge instructions Follow Up Care 12/30/2021 04:59:03 [facility] Address: [address] [facility] [address] [facility] [place] [address]- When:01/17/2022 13:30:00 Comments:please obtain a CXR 1 hour prior to your appt. With:Discharge to [facility] LOC [phone] Address:Unknown When:1-2 days With:KARL HIDALGO MD Address: [address] [facility] [place] [address]- When:02/15/2022 10:00:00 With:Cardiac Rehab- [facility] Address: [facility] [address] [address]- When: Unknown Comments:The Cardiac Rehab department will call you to schedule you for phase 2. We left you a brochure withinformation about cardiac rehab. If you have any questions please call [phone]. [facility] 08-24-2021 History of Present illness Narrative* Thu Roche RN - 02/09/2021 11:33 AM EDT Discharge instructions given to pt and contract modeler at bedside. All questions answered. All belongingsat bedside. VSS. Pt resting comfortably, denies pain * Thu Roche RN - 02/09/2021 11:17 AM EDT Report called to Leighann VALE at [facility] * Thu Roche RN - 02/09/2021 11:08 AM EDT golf course assistant to bedside * Thu Roche RN - 02/09/2021 11:03 AM EDT [facility]. Attached to junior media buyer. VSS. assistant plant controller updated * Lindsey Morales RN - 02/09/2021 8:33 AM EDT Notified anesthesia blood sugar is 284 * Jazmín Burton RN - 02/05/2021 4:[address] Vicente's office called and stated pt should not hold Eliquis nor Aspirin before surgery. Will include on pre-op instructions for facility. documented in this [facility] Work Phone: Anesthesiology Consult note* LINN [...] kidney disease), stage III / SNOMED CT 3246344302 / Confirmed CAD (coronary artery disease) / SNOMED CT 67350843 / Confirmed Diabetes / SNOMED CT 187573142 / Confirmed History of Singh's palsy / SNOMED CT 121708849 / Confirmed HLD (hyperlipidemia) / SNOMED CT 27006506 / Confirmed HTN (hypertension) / SNOMED CT 9892610051 / Confirmed Hypothyroid / SNOMED CT 20285081 / Confirmed QUIN (acute kidney injury) / SNOMED CT 85013852 / Confirmed Mood disorder / SNOMED CT 88872731 / Confirmed NSTEMI (non-ST elevated myocardial infarction) / SNOMED CT 01280890 / Confirmed AF (paroxysmal atrial fibrillation) / SNOMED CT 308583374 / Confirmed PVD (peripheral vascular disease) / SNOMED CT 1103465190 / Confirmed Giant cell arteritis / SNOMED CT 7246825583 / Confirmed, Active Problems (24) AF (paroxysmal atrial fibrillation) QUIN (acute kidney injury) CAD (coronary artery disease) Cataract CKD (chronic kidney disease), stage III COPD (chronic obstructive pulmonary disease) Depression Diabetes DM (diabetes mellitus) Giant cell arteritis Giant cell arteritis syndrome Glasses Heart disease High blood pressure History of Singh's palsy HLD (hyperlipidemia) HTN (hypertension) Hypothyroid Kidney disease MT (myocardial infarction) Mood disorder NSTEMI (non-ST elevated myocardial infarction) PVD (peripheral vascular disease) Tachycardia Histories Past Medical History: No active or resolved past medical history items have been selected or recorded. Family History: No family history items have been selected or recorded. Procedure history: Amputation ([id number]) in 2020 at 79 Years. Comments: 07/12/2021 14:23 Maria Esther Navarro RN Left below the knee Amputation ([id number]) in 2020 at 79 Years. Comments: 07/12/2021 14:24 Maria Esther Navarro RN right below the knee amputation Catheter ([id number]) in 2020 at 79 Years. Comments: 07/12/2021 14:25 Maria Esther Navarro RN Temporary dialysis cath None ([id number]). 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 Patient Dressed In Hospital gown [...] On and Limits Checked Nail Bed Color [place] Capillary Refill < 2 seconds Heart Sounds [...] Warm Temperature All Extremities Warm Skin Description [place], Normal for ethnicity, Dry Skin Integrity Pressure points intact Skin Turgor Elastic Mucous Membrane Color [place] Mucous Membrane Description Moist Sensory Perception Dre [...] Rhythm Sinus rhythm Monitoring Lead II, V1/MCL1 NH Interval 0.17 second(s) QRS Duration 0.12 second(s) [...] Transport Mode Order Detail MTT with Monitor Ultrasonic Seaming Machine Operator Details Form Ultrasonic Seaming Machine Operator Details Form 01/05/2022 0:28 EDT Skin [...] Transport Mode Order Detail MTT with Monitor Ultrasonic Seaming Machine Operator Details Form Ultrasonic Seaming Machine Operator Details Form 01/04/2022 23:29 EDT heparin [...] On and Limits Checked Nail Bed Color [place] Capillary Refill < 2 seconds Heart Sounds ICU S1S2 Heart Rhythm Regular Radial Pulse, Left 2+ Normal Radial Pulse, Right 2+ Normal Popliteal Pulse, Left 1+ Thready Popliteal Pulse, Right 1+ Thready Edema Generalized None Cardiac Rhythm Sinus rhythm Monitoring Lead II, V1/MCL1 NH Interval 0.18 second(s) QRS Duration 0.12 second(s) QT Interval 0.47 second(s) QTc Interval 0.48 second(s) Alarms On and Functional Yes Respirations Unlabored Respiratory Pattern Regular Breath Sounds Auscultated Anterior only All Lobes Breath Sounds Clear Oxygen Therapy Room air Abdomen Description Non-distended, Symmetric, Soft Abdomen Palpation Non-Tender Bowel Sounds All Quadrants Present Urinary Elimination Voiding, no difficulties All Extremity Description [place], Normal for ethnicity Skin Temperature Warm Temperature All Extremities Warm Skin Description [place], Normal for ethnicity Mucous Membrane Color [place] Mucous Membrane Description Moist Leg Bilateral Skin [...] 21:26 EDT Blood Glucose, Capillary 206 mg/dL GA Blood Glucose Testing Reason Routine 01/04/2022 19:40 EDT Temperature Oral 36.6 DegC Reason For Taking VItal Signs Routine Primary Pain Intensity 0 Primary Pain Nonverbal Response Appears restful Pain Scale Type 0-10 Pain scale Monitor Alarms On and Limits Checked Nail Bed Color [place] Capillary Refill < 2 seconds Heart Sounds ICU S1S2 Heart Rhythm Regular Radial Pulse, Left 2+ Normal Radial Pulse, Right 2+ Normal Popliteal Pulse, Left 1+ Thready Popliteal Pulse, Right 1+ Thready Edema Generalized None Cardiac Rhythm Sinus rhythm Monitoring Lead II, V1/MCL1 NH Interval 0.19 second(s) QRS Duration 0.12 second(s) [...] Facial Movement Symmetric resting/crying All Extremity Description [place], Normal for ethnicity Skin Temperature Warm Temperature All Extremities Warm Skin Description [place], Normal for ethnicity Skin Integrity Pressure points intact Skin Turgor Elastic Mucous Membrane Color [place] Mucous Membrane Description Moist Sensory Perception Dre [...] Symptoms Bruising Skin Temperature Warm Skin Description [place], Normal for ethnicity Skin Integrity Intact Skin Turgor Elastic Mucous Membrane Color [place] Mucous Membrane Description Moist Sensory Perception Dre [...] On and Limits Checked Nail Bed Color [place] Capillary Refill < 2 seconds Heart Sounds [...] Facial Movement Symmetric resting/crying All Extremity Description [place], Normal for ethnicity Skin Temperature Warm Temperature All Extremities Warm Skin Description [place], Normal for ethnicity Skin Integrity Pressure points intact Skin Turgor Non-Elastic Mucous Membrane Color [place] Mucous Membrane Description Moist Leg Bilateral Skin [...] 11:06 EDT Blood Glucose, Capillary 148 mg/dL GA Blood Glucose Testing Reason Routine Temperature Oral [...] Rhythm Sinus rhythm Monitoring Lead III, V1/MCL1 NH Interval 0.20 second(s) QRS Duration 0.09 second(s) [...] mEq predniSONE 10 mg mg vitamin A 08121 unit(s) unit(s) 01/04/2022 8:39 EDT Heart Rate Monitored 59 bpm LOW Reason For Taking VItal Signs Routine Primary Pain Intensity 0 Primary Pain Nonverbal Response Nods No Pain Scale Type 0-10 Pain scale Monitor Alarms On and Limits Checked Nail Bed Color [place] Capillary Refill < 2 seconds Heart Sounds [...] Facial Movement Symmetric resting/crying All Extremity Description [place], Normal for ethnicity Skin Temperature Warm Temperature All Extremities Warm Skin Description [place], Normal for ethnicity Skin Integrity Pressure points intact Skin Turgor Non-Elastic Mucous Membrane Color [place] Mucous Membrane Description Moist Leg Bilateral Wound [...] Transport Mode Order Detail MTT with Monitor Ultrasonic Seaming Machine Operator Details Form Ultrasonic Seaming Machine Operator Details Form 01/04/2022 7:11 EDT Blood [...] Rhythm Sinus rhythm Monitoring Lead III, V1/MCL1 NH Interval 0.18 second(s) QRS Duration 0.09 second(s) [...] Type 0-10 Pain scale Nail Bed Color [place] Capillary Refill < 2 seconds Heart Sounds [...] Facial Movement Symmetric resting/crying All Extremity Description [place], Normal for ethnicity Skin Temperature Warm Temperature All Extremities Warm Skin Description Normal for ethnicity Skin Integrity Pressure points intact Skin Turgor Non-Elastic Mucous Membrane Color [place] Mucous Membrane Description Moist Leg Bilateral Skin [...] Yes Gait Weak or Impaired Fall Risk Reaz Normal, bedrest, immobile Mental Status Fall Risk [...] Rhythm Sinus rhythm Monitoring Lead III, V1/MCL1 NH Interval 0.20 second(s) QRS Duration 0.09 second(s) [...] Light Use Yes . Assessment and Plan [place] Society of Anesthesiologists (ASA) physical status classification: [...] RICHARD DO on 01/05/2022 07:59 AM [facility] Evaluation + Plan note Future Appointments Appointment Date:02/07/2022 01:00:00 PM Scheduled Provider:HUNTER FALCON Location:[facility] Appointment Type:CTS OV Post Op Follow Up Appointment Date:02/15/2022 10:00:00 AM Scheduled Provider: Location:[facility] Appointment Type:CV OV Hospital Follow Up Future Scheduled Tests Radiology* XR Chest 2 Views (PA & Lateral) 02/07/22 [facility] evaluation note* Diagnosis Optic nerve edema- Primary Papilloedema, unspecified documented [facility] this encounter [facility]* Diagnosis Vision changes- Primary Unspecified visual disturbance Photosensitivity Acute dermatitis due to solar radiation PVD (peripheral vascular disease) (HCC) Peripheral vascular disease, unspecified Type 2 diabetes mellitus with other specified complication, without long-term current use of insulin (HCC) 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 Work Phone: evaluation note* Diagnosis Onset Date Resolution Status Renal mass acute Calculous cholecystitis with obstruction resolved Choledocholithiasis resolved Cholecystostomy care acute Renal mass acute Cholecystostomy care [facility] Work Phone: evaluation note* Diagnosis Screening for genitourinary condition- Primary Screening for other and unspecified genitourinary condition Gross hematuria Left renal mass Unspecified disorder of kidney and ureter documented in this encounter [facility]* Diagnosis Gross hematuria documented in this encounter [facility] note* Diagnosis Gross hematuria- Primary Screening for genitourinary condition Screening for other and unspecified genitourinary condition documented in this encounter [facility]* Diagnosis Gross hematuria- Primary [facility] Diagnosis Gross hematuria- Primary Left renal mass Unspecified disorder of kidney and ureter [facility] Work Phone: Hospital course Narrative No data available for this section [facility] Hospital Discharge instructions* Instructions* Ammy Vicente [...] next day as directed. documented in this [facility] Work Phone: Hospital Discharge instructions No data available for this section [facility] Progress note No data available for this section [facility] Reason for referral (narrative)No reason for referral [facility] Work Phone: Summary Purpose Family History [...] Documents on File Type Date Recorded Patient Resident Care Associate Expl anation Advance Directive(s) 12/09/2019 8:26 AM Advance Directive(s) 08/22/2019 2:27 PM Advance Directive(s) 08/21/2019 4:25 PM Advance Directive Response Recorded Date/ Time Name of Medical Power of Clinical Education Consultant Angelic Robertamelia December 14, 2022 3:40am Living Will Yes December 14, 2022 3:40am Power of Clinical Education Consultant Yes December 14 3:40am Advance Directive Response Recorded Date/ Time Living Will Yes January 11, 2024 7:47am Do you have a Healthcare Power of Clinical Education Consultant? Yes January 11, 2024 7:47am Advance Directive Response Recorded Date/ Time Do you have a Healthcare Power of Clinical Education Consultant? Yes October 15, 2024 5:49pm Name of Medical Power of Clinical Education Consultant angelic durán October 15, 2024 5:49pm Hospital Course Note HNO ID: [id number] Author: Emily Prescott DO Service: General Surgery [...] (more content not included)... Note HNO ID: [id number] Author: Teo Duran DO Service: General Surgery [...] well within a few weeks Signature: Ryan Aleln MD Date: 12/11/2019. Time: 5:19 PM DISCHARGE [...] W/WO CONTRST 1+ BODY Nikolai Fisher PA-C [address] [place] [address] [facility] [place] [address] Referral ID Status Reason Start Date Expiration Date Visits Requested Visits Authorized [id number] Authorized Auto-Generat ed Referral 06/25/2024 07/18/2025 1 1 Specialty Diagnoses / Procedures Referred By Barb durán Referred To Contact Ophthalmology Diagnoses Vision changes Photosensitivity Procedures CONSULT TO OPHTHALMOLOGY OFFICE/OUTPATIENT [facility] 60-74 MINUTES Shana Ga MD [address] [place] [address] Referral ID Status Reason Start Date Expiration Date Visits Requested Visits Authorized [id number] Authorized PCP Requested Referral 09/01/2022 09/01/2023 1 [...] 3 M FU June 06, 2024 3:30pm [facility] June 17 1:00pm NEW CONCERN June 17, 2024 3:17pm LABWORK June 20, 2024 5: 00am [facility] June 27, 2024 5:50am MONTHLY EXAM July 05, 2024 3 :48pm MONTHLY EXAM July 23, 2024 4 :43pm [facility] July 24, 2024 4:00am LABWORK August 01, 2024 2:00pm LABWORK August 21, 2024 5:00 am 4 M FU September 06, 2024 1:3 8pm Reason for Visit Admit Date Fecal incontinence June 06, 2024 3:30pm S/P ERCP June 06, 2024 3:30pm Fecal incontinence September 06, 2024 1:3 8pm S/P ERCP September 06, 2024 1:3 8pm Chief Complaint Admit Date [facility] June 17 1:00pm NEW CONCERN June 17, 2024 3:17pm LABWORK June 20, 2024 5: 00am [facility] June 27, 2024 5:50am MONTHLY EXAM July 05, 2024 3 :48pm MONTHLY EXAM July 23, 2024 4 :43pm [facility] July 24, 2024 4:00am LABWORK [...] Date LABWORK June 20, 2024 5: 00am [facility] June 27, 2024 5:50am MONTHLY EXAM July 05, 2024 3 :48pm MONTHLY EXAM July 23, 2024 4 :43pm [facility] July 24, 2024 4:00am LABWORK August 01, 2024 2:00pm LABWORK August 21, 2024 5:00 am MONTHLY EXAM September 03, 2024 6:1 1pm NEW CONCERN September 05, 2024 1:1 5pm 4 M FU September 06, 2024 1:3 8pm LABWORK September 18, 2024 5:00 am fall October 15, 2024 3:5 7pm Chief Complaint Admit Date MONTHLY EXAM July 23, 2024 4 :43pm [facility] July 24, 2024 4:00am LABWORK August 01, 2024 2:00pm LABWORK August 21, 2024 5:00 am MONTHLY EXAM September 03, 2024 6:1 1pm NEW CONCERN September 05, 2024 1:1 5pm 4 M FU September 06, 2024 1:3 8pm LABWORK September 18, 2024 5:00 am fall October 15, 2024 3:5 7pm FU NH WANTED SOONER THAN [place]CHO SO DIDN'T WANT RESILIENT TILE INSTALLER October 16, 2024 7:59am LABWORK October 23, 2024 5:00am Reason for Visit Admit Date Fecal incontinence September 06, 2024 1:3 8pm S/P ERCP September 06, 2024 1:3 8pm Atherosclerotic heart diseas e of [place] coronary artery without angina pectoris October 16, [...] WANTED SOONER THAN [place]BER SO DIDN'T WANT RESILIENT TILE INSTALLER October 16, 2024 7:59am LABWORK October 23, 2024 5:00am [facility] November 07, 2024 5:0 0am [...] WANTED SOONER THAN DECEMBER SO DIDN'T WANT RESILIENT TILE INSTALLER October 16, 2024 7:59am LABWORK October 23, 2024 5:00am [facility] November 07, 2024 5:0 0am LABWORK November 20, 2024 5:00a m Chief Complaint Admit Date LABWORK September 18, 2024 5:00 am Monthly Exam September 24, 2024 3:41 pm New Concern October 01, 2024 3:2 5pm fall October 15, 2024 3:5 7pm FU NH WANTED SOONER THAN DECEMBER SO DIDN'T WANT RESILIENT TILE INSTALLER October 16, 2024 7:59am LABWORK October 23, 2024 5:00am [facility] November 07, 2024 5:0 0am LABWORK November 20, 2024 5:00a m MONTHLY EXAM December 03, 2024 3:30 pm LABWOKR December 18, 2024 5:00a m Reason for Visit Admit Date Atherosclerotic heart diseas e of [place] coronary artery without angina pectoris October 16, 2024 7:59am Essential hypertension October 16, 2024 7:59am Hyperlipidemia October 16, 2024 7:5 9am Paroxysmal atrial fibrillation September 7:59am Chief Complaint Admit Date fall October 15, 2024 3:5 7pm FU CO WANTED SOONER THAN DECEMBER SO DIDN'T WANT RESILIENT TILE INSTALLER October 16, 2024 7:59am LABWORK October 23, 2024 5:00am [facility] November 07, 2024 5:0 0am LABWORK November 20, 2024 5:00a m MONTHLY EXAM December 03, 2024 3:30 pm LABWOKR December 18, 2024 5:00a m Monthly Exam December 24, 2024 5:38p m Chief Complaint Admit Date LABWORK October 23, 2024 5:00am [facility] November 07, 2024 5:0 0am LABWORK November 20, 2024 5:00a m MONTHLY EXAM December 03, 2024 3:30 pm LABWOKR December 18, 2024 5:00a m Monthly Exam December 24, 2024 5:38p m [facility] January 20, 2025 5 :00am [facility] January 22, 2025 5 :00am [facility] January 28, 2025 5:00am MONTHLY EXAM January 28, 2025 4: 15pm [facility] February 04, 2025 4:00am Additional Source Comments (unrecognized sect ion and content) No Status Records FoundNo Status Records FoundNo Status Records FoundNo Status Records FoundNo Status Records FoundNo Status Records FoundNo Status Records FoundNo Status Records FoundNo Status Records FoundNo Status Records FoundNo Status Records Found INFORMATION SOURCE (unrecogn ized section and content) DATE CREATED AUTHOR 05/19/2020 [facility] DATE CREATED AUTHOR AUTHOR'S ORGANIZ ATION 05/21/2020 [facility] DATE CREATED AUTHOR AUTHOR'S ORGANIZ ATION 02/11/2021 [facility] DATE CREATED AUTHOR AUTHOR'S ORGANIZ ATION 08/05/2021 [facility] DATE CREATED AUTHOR AUTHOR'S ORGANIZ ATION 09/07/2021 [facility] DATE CREATED AUTHOR AUTHOR'S ORGANIZ ATION 04/15/2023 [facility] DATE CREATED AUTHOR AUTHOR'S ORGANIZ ATION 01/11/2024 [facility] DATE CREATED AUTHOR AUTHOR'S ORGANIZ ATION 10/06/[address] [facility] DATE CREATED AUTHOR AUTHOR'S ORGANIZ ATION 01/15/2025 [facility] DATE CREATED AUTHOR AUTHOR'S ORGANIZ ATION 01/21/2025 [facility] DATE CREATED AUTHOR AUTHOR'S ORGANIZ ATION 04/27/2025 [facility] Scheduled Active and Recently Administ ered [...] For 1 dose, Pre-op (day of surgery) 0907 (Given - Provid er: Lindsey Morales RN) phenylephrine (MYDFRIN) 2.5 % ophthalmic solution 1 drop (COMPLETED) 1 drop, Right Eye, SEE ADMIN INSTRUCTIONS, Starting on Mon02/09/21 at 0810, For 3 doses, To operative eye(s) for 3 doses, 5 minutes apart, starting 30 minutes prior to surgery, Pre-op (day of surgery) 907 (Given - Provid er: Lindsey Morales RN)920 (Given - Provider: Lindsey Morales RN)924 (Given - Provider: Lindsey Morales RN) sodium [...] prior to surgery., Pre-op (day of surgery) 907 (Given - Provid er: Lindsey Morales RN) tropicamide (MYDRIACYL) 1 % ophthalmic solution 1 drop (COMPLETED) 1 drop, Right Eye, SEE ADMIN INSTRUCTIONS, Starting on Mon02/09/21 at 0810, For 3 doses, To operative eye(s) for 3 doses, 5 minutes apart, starting 30 minutes prior to surgery, Pre-op (day of surgery) 907 (Given - Provid er: Lindsey Morales RN)920 (Given - Provider: Lindsey Morales, YURI)924 (Given - Provider: Lindsey Morales RN) Continuous [...] or prosecute any alcohol or drug abuse patient.[facility] the event this information is protected by the Federal Confidentiality of Alcohol and Drug Abuse Patient Records regulations: The Federal rules restrict any use of the information to criminally investigate or prosecute any alcohol or drug abuse patient.[facility] the event this information is protected by the Federal Confidentiality of Alcohol and Drug Abuse Patient Records regulations: The Federal rules restrict any use of the information to criminally investigate or prosecute any alcohol or drug abuse patient.[facility] the event this information is protected by the Federal Confidentiality of Alcohol and Drug Abuse Patient Records regulations: The Federal rules restrict any use of the information to criminally investigate or prosecute any alcohol or drug abuse patient.[facility] the event this information is protected by the Federal Confidentiality of Alcohol and Drug Abuse Patient Records regulations: The Federal rules restrict any use of the information to criminally investigate or prosecute any alcohol or drug abuse patient.[facility] the event this information is protected by the Federal Confidentiality of Alcohol and Drug Abuse Patient Records regulations: The Federal rules restrict any use of the information to criminally investigate or prosecute any alcohol or drug abuse patient.[facility] the event this information is protected by the Federal Confidentiality of Alcohol and Drug Abuse Patient Records regulations: The Federal rules restrict any use of the information to criminally investigate or prosecute any alcohol or drug abuse patient.[facility] the event this information is protected by the Federal Confidentiality of Alcohol and Drug Abuse Patient Records regulations: The Federal rules restrict any use of the information to criminally investigate or prosecute any alcohol or drug abuse patient.[facility] the event this information is protected by the Federal Confidentiality of Alcohol and Drug Abuse Patient Records regulations: The Federal rules restrict any use of the information to criminally investigate or prosecute any alcohol or drug abuse patient.[facility] the event this information is protected by the Federal Confidentiality of Alcohol and Drug Abuse Patient Records regulations: The Federal rules restrict any use of the information to criminally investigate or prosecute any alcohol or drug abuse patient.[facility] the event this information is protected by the Federal Confidentiality of Alcohol and Drug Abuse Patient Records regulations: The Federal rules restrict any use of the information to criminally investigate or prosecute any alcohol or drug abuse patient.[facility] the event this information is protected by the Federal Confidentiality of Alcohol and Drug Abuse Patient Records regulations: The Federal rules restrict any use of the information to criminally investigate or prosecute any alcohol or drug abuse patient.[facility] the event this information is protected by the Federal Confidentiality of Alcohol and Drug Abuse Patient Records regulations: The Federal rules restrict any use of the information to criminally investigate or prosecute any alcohol or drug abuse patient.[facility] the event this information is protected by the Federal Confidentiality of Alcohol and Drug Abuse Patient Records regulations: The Federal rules restrict any use of the information to criminally investigate or prosecute any alcohol or drug abuse patient.[facility] Care Teams (unrecognized sec tion and [...] End: September 03, 2024 Christina Whipple NP ANIMAL ECOLOGIST-C Attending Provider Active Start: September 03, 2024 End: September 03, 2024 Team Status: Inactive Member Role Status Dates Dr. Diana Salmeron MD Primary Care Provider Active Start: September 05, 2024 End: September 05, 2024 Christina Whipple NP ANIMAL ECOLOGIST-C Attending Provider Active Start: September 05, 2024 [...] 17, 2024 End: June 17, 2024 Christina Tickton ANIMAL ECOLOGIST, ANIMAL ECOLOGIST-C Attending Provider Active Start: June 17, 2024 [...] End: July 05, 2024 Christina Whipple NP ANIMAL ECOLOGIST-C Attending Provider Active Start: July 05, 2024 End: July 05, 2024 Calculus Tutor Relationship Specialty Start Date End Date Dexter Reyes Chi [address] [id number] PCP - General Gerontology 12/06/19 Ryan Rodrigues MD [address] [place] [address] Infectious Diseases 12/06/19 Yadi White, [address] [id number] Urology 04/28/20 Calculus Tutor Relationship Specialty Start Date End Date Diana Salmeron MD [address] [place] [address] PCP - General Internal Medicine 09/01/22 Ryan Rodrigues MD [address] [place] [address] Infectious Diseases 12/06/19 Demetris White, [address] [address] Urology 04/28/20 Isac Lucas [address] [place], [place] [address] Referring Ophthalmology 06/27/22 Calculus Tutor Relationship Specialty Start Date End Date Diana Salmeron MD [address] [place] [address] PCP - General Internal Medicine 09/01/22 Ryan Rodrigues MD [address] [place] [place] [address] Infectious Diseases 12/06/19 Christopher, Rubenyram, DO [address] [place] [address] Urology 04/28/20 Isac Lucas [address] [place] [address] Referring Ophthalmology 06/27/22 Calculus Tutor Relationship Specialty Start Date End Date Diana Salmeron MD [address] [place] [address] PCP - General Internal Medicine 09/01/22 Ryan Rodrigues MD [address] [place] [address] Infectious Diseases 12/06/19 Christopher, Rubenyram, DO [address] [place] [address] Urology 04/28/20 Isac Lucas [address] [place] [address] Referring Ophthalmology 06/27/22 Team Status: Active Member [...] Status: Active Member Role Status Dates Dr. eDxter Reyes MD Primary Care Provider Active Dr. [...] MD Attending Provider, Referring P katerina Active Calculus Tutor Relationship Specialty Start Date End Date Diana Salmeron MD [address] [place] [address] PCP - General Internal Medicine 09/01/22 Ryan Rodrigues MD [address] [place] [address] Infectious Diseases 12/06/19 Yadi White DO [address] [place] [address] Urology 04/28/20 Isac Lucas [facility] [place] [address] Referring Ophthalmology 06/27/22 Calculus Tutor Relationship Specialty Start Date End Date Diana Salmeron MD [address] [place] [address] PCP - General Internal Medicine 09/01/22 Ryan Rodrigues MD [address] [place] [address] Infectious Diseases 12/06/19 Yadi White DO [address] [place] [address] Urology 04/28/20 Isac Lucas [address] [place] [address] Referring Ophthalmology 06/27/22 Calculus Tutor Relationship Specialty Start Date End Date Diana Salmeron MD [address] [place], [place] [address] PCP - General Internal Medicine 09/01/22 Ryan Rdorigues MD [address] [place] [address] Infectious Diseases 12/06/19 Yadi White DO [address] [place] [address] Urology 04/28/20 Isac Lucas [address] [place], [place] [address] Referring Ophthalmology 06/27/22 Calculus Tutor Relationship Specialty Start Date End Date Diana Salmeron MD [address] [place], [place] [address] PCP - General Internal Medicine 09/01/22 Ryan Rodrigues MD [address] [place] [address] Infectious Diseases 12/06/19 Yadi White DO [address] [place] [address] Urology 04/28/20 Isac Lucas [address] [place] [address] Referring Ophthalmology 06/27/22 Calculus Tutor Relationship Specialty Start Date End Date Diana Salmeron MD [address] [place] [address] PCP - General Internal Medicine 09/01/22 Ryan Rodrigues MD [address] [place] [address] Infectious Diseases 12/06/19 Yadi White DO [address] [place] [id number] Urology 04/28/20 Isac Lucas [address] [place] [address] Referring Ophthalmology 06/27/22 Team Status: Inactive Member [...] Attending Provider Active Start: September 18, 2024 Calculus Tutor Relationship Specialty Start Date End Date Diaan Salmeron MD [address] [place] [address] PCP - General Internal Medicine 09/01/22 Ryan Rodrigues MD [address] [facility] [address] Infectious Diseases 12/06/19 Yadi White DO [address] [place] [address] Urology 04/28/20 Isac Lucas [address] [place], [place] [address] Referring Ophthalmology 06/27/22 Calculus Tutor Relationship Specialty Start Date End Date Diana Salmeron MD [address] [id number] PCP - General Internal Medicine 09/01/22 Ryan Rodrigues MD [address] [facility] [place] [place] [address] Infectious Diseases 12/06/19 Yadi White DO [address] [place] [address] Urology 04/28/20 Isac Lucas [address] [place] [address] Referring Ophthalmology 06/27/22 Team Status: Inactive Member [...] 2024 End: October 01, 2024 Christina Whipple ANIMAL ECOLOGIST, ANIMAL ECOLOGIST-C Attending Provider Active Start: October 01, 2024 [...] 2024 End: September 03, 2024 Christina Whipple ANIMAL ECOLOGIST, ANIMAL ECOLOGIST-C Attending Provider Active Start: September 03, 2024 End: September 03, 2024 Team Status: Inactive Member Role/Relationship Status Dates Dr. Diana Salmeron MD Primary Care Provider Active Start: September 05, 2024 End: September 05, 2024 Christina Whipple ANIMAL ECOLOGIST, ANIMAL ECOLOGIST-C Attending Provider Active Start: September 05, 2024 [...] End: October 01, 2024 Christina Whipple NP, ANIMAL ECOLOGIST-C Attending Provider Active Start: October 01, 2024 [...] Attending Provider Active Start: December 18, 2024 Calculus Tutor Relationship Specialty Start Date End Date Diana Salmeron MD [address] [address] PCP - General Internal Medicine 09/01/22 Ryan Rodrigues MD [address] [place] [address] Infectious Diseases 12/06/19 Yadi White DO [address] [place] [address] Urology 04/28/20 Isac Lucas [address] [place], [place] [address] Referring Ophthalmology 06/27/22 Team Status: Inactive Member [...] End: December 24, 2024 Christina Whipple NP ANIMAL ECOLOGIST-C Attending Provider Active Start: December 24, 2024 [...] End: December 24, 2024 Christina Whipple NP ANIMAL ECOLOGIST-C Attending Provider Active Start: December 24, 2024 [...] Member Role: Primary Care Physician Address: Address: [address] [place] [address] [address] Care Team Related Persons Name: ANGELIC SUE [...] CONTRST 1+ BODY Nikolai Fisher PA-C [address] [place] [id number] [place] [address] Referral ID Status Reason Start Date Expiration Date V isits Requested Visits Authorized [id number] Closed Auto-Generate d Referral 06/25/2024 07/18/2025 1 [...] BE BASED ON THE PRIMARY CLINICAL RECORDS. [employer] provides no warranty or guarantee of the accuracy or completeness of information in this document.
[2025-05-21 07:49] LABS: Albumin, Serum 3.2 g/dL (3.4-4.8); Anion Gap 13 (5-15); BUN 31 mg/dL (4-19); BUN/Creat Ratio 21.1 RATIO (10-20); Calcium,Total 8.4 mg/dL (7.6-11.0); Carbon Dioxide 20.3 mmol/L (21.0-32.0); Chloride 108 mmol/L (98-108); Glucose 79 mg/dL (70-99); Potassium 4.3 mmol/L (3.3-5.1)
== END ==
LOC: OLS.WHLEAS 05:00
PROVIDERS: PCP Internal Medicine; Visit Provider Internal Medicine
DX: E11.22 Type 2 diabetes mellitus with diabetic chronic kidney disease (principal); N18.9 Chronic kidney disease, unspecified; J96.11 Chronic respiratory failure with hypoxia; E11.40 Type 2 diabetes mellitus with diabetic neuropathy, unspecified; F03.90 Unspecified dementia, unspecified severity, without behavioral disturbance, psychotic disturbance, mood disturbance, and anxiety
CPT/HCPCS: 36415; 80069

== ENCOUNTER → 2025-05-26 04:00 | Outpatient (REF) | payer MEDICARE, MEDICAID, SELFPAY ==
--- OUTSIDE RECORDS SUMMARY | 2025-05-26 03:29 | XMS RPT_ITS | CCD ---
Author Organization [facility] Care Team Providers Care Gill Box Tender Name Role Phone Eric LATHAM, Papa Primary Care Provider [phone] ERIC DEXTER-CHI Primary Care Unavailable HUMA MARIO Referring Unavailable MARIO FINN Attending Unavailable ERIC, DEXTER-CHI Primary Care Unavailable YUSUF COOPER Attending Unavailable ERIC, DEXTER-CHI Referring Unavailable ERIC, DEXTER-CHI Referring Unavailable ERIC, DEXTER-CHI Primary Care Unavailable MARIO FINN Attending Unavailable Eric, Dexter Chi Primary Care Provider [phone] Ryan Rodrigues MD Unavailable Yadi White DO Unavailable [phone] DIANA SALMERON MD Primary Care Physician Ryan Rodrigues MD Unavailable [phone] Ruben White DOyrgracia Unavailable [phone] Isac Lucas Unavailable Diana Salmeron MD Primary Care Provider Dr. Dexter Reyes Chi Primary Care Provider [phone] Dr. Bren Lopes Admit Provider Dr. Bren Lopes Other Provider Dr. Dwayne Palumbo Other Provider Dr. Jesse Haywood Attending Provider Dr. Jesse Haywood Other Provider Dr. Dwayne Palumbo Attending Provider [phone] Friend, Dr. Sauceda Attending Provider Dr. Jesse [...] Rojas MD Attending Provider Unavaila ble Tickton COLD MOLDING PRESS OPERATOR-C, Christina Attending Provider Dr. Victor M [...] Rojas MD Attending Provider Unavaila ble [place] COLD MOLDING PRESS OPERATOR-C, Christina Attending Provider Dr. Jesse Angel DO Emergency Provider Dr. Diana Salmeron MD Primary Care Provider Victor M Rojas MD Attending Provider Unavaila ble Sole COLD MOLDING PRESS OPERATOR-C, Christina Attending Provider Dr. Jesse Angel DO Attending Provider Foster GARLAND, Lauren Bryan Attending Provider Sole COLD MOLDING PRESS OPERATOR-C, Christina Attending Provider Dr. Diana Salmeron MD Primary Care Provider Victor M Rojas MD Attending Provider UnavailDr. Victor M Meneses MD Attending Provider Dr. Diana Salmeron MD Primary Care Provider Victor M Rojas MD Attending Provider Unavaila ble Sole COLD MOLDING PRESS OPERATOR-C, Christina Attending Provider Dr. Diana Salmeron [...] Victor M Meneses MD Attending Provider Sole COLD MOLDING PRESS OPERATOR-CChristina Attending Provider Dr. Diana Salmeron MD Primary [...] Unavailable Latouf, Butros Primary Care Unavailable Sole COLD MOLDING PRESS OPERATOR, Christina Attending Unavailable Latouf, Butros Primary Care Unavailable Kacie Simon Attending Unavailable Latouf, Butros Referring Unavailable Latouf, Butros Primary Care Unavailable Oleghe, Efewongbe Attending Unavailable Oleghe, Efewongbe Attending Unavailable Latouf, Butros Primary Care Unavailable Sole COLD MOLDING PRESS OPERATOR, Christina Attending Unavailable Latouf, Butros Primary [...] Unavailable Latouf, Butros Primary Care Unavailable Sole COLD MOLDING PRESS OPERATOR, Christina Attending Unavailable Sole COLD MOLDING PRESS OPERATOR, Christina Attending Unavailable Latouf, Butros Primary [...] MG DAILY@0800 Sunitha 25th, 2020 7:37am 10-12-2019 [facility] ([id number]) 0 10/12/2019 Active Comment on above: Aspirin Aspirin E.C. Active 81 MG DAILY@0800 October 12, 2019 7:37am 10-12-2019 [facility] ([id number]) Take 81 mg by mouth. atorvastatin 40 [...] Start: 08-19-2019 take 2 tablets by mo [facility] once daily levothyroxine (SYNTHROID) 25 mcg tablet [...] (BACTROBAN) 2 % ointment 01/14/2023 Active nystatin 946210 unt/ml topical cream (10 sources) Polyene Antifungal [...] October 12, 2019 7:45am polyethylene glycol 3350 87643 mg powder for oral solution (20 sources) [...] pen injector 3 mg. 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 12/09/2020 Active Start: 12-09-2020 vit C,E-Zn-commercial helicopter pilot iq-hpmjxm-timjyv (PRESERVISION AREDS-2) 250-90-40-1 mg Take 1 Each [...] Start: 05-18-2020 take 1000 [IU] by mo [facility] once daily Cholecalciferol (Vitamin D3) Active [...] DAILY docusate sodium 50 mg / sennosides, custodial 8.6 mg oral tablet (1 source) take [...] 11:42am take 1 tablet by mouth twice jytoi ly furosemide (LASIX) 40 MG tablet Take [...] 7:40am nerve pain take 1 capsule by [facility] once daily for pain gabapentin (NEURONTIN) [...] Coronary atherosclerosis; Translations: [Atherosclerotic heart disease of [place] coronary artery without angina pectoris] Onset: 12-31-2021 [...] Long-term current use of systemic steroid; Translations: [senior living (current) use of systemic steroids] Episodic Other aftercare (5 sources) Drug therapy finding; Translations: [Other steel turner (current) drug therapy] 12-25-2022 Episodic Other aftercare (7 sources) Long-term current use of amiodarone; Translations: [Other senior living (current) drug therapy] 05-16-2022 Episodic Other aftercare (1 source) Other steel turner (current) drug therapy; Translations: [Other steel turner (current) drug therapy] Onset: 04-17-2025 Episodic Other [...] Other nervous system disorders (1 source) 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 He currently resides at [facility]. 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 Normal [facility] Anion gap in Serum or Plasma Ordered By: Victor M Rojas on 02-11-2025 Anion gap [Moles/Vol] 12 mmol/L 5-15 [facility] BUN/creatinine ratioOrdered By: Victor M Rojas on 02-11-2025 Urea nitrogen/Creatinine [Mass ratio] 21.9 mg/mg High 10-20 [facility] Carbon dioxide, total [Moles /volume] in Central venous bloodOrdered By: Victor M Rojas on 02-11-2025 CO2 [Moles/Vol] 19.2 mmol/L Low 21.0-32.0 [facility] Chloride assayOrdered By: Stefan Rojas on 02-11-2025 Chloride [Moles/Vol] 108 mmol/L 98-108 [facility] Glomerular filtration rate ( GFR) estimation/1.73 sq m using serum, plasma, or whole bOrdered By: Victor M Rojas on 02-11-2025 GFR/1.73 sq M.predicted among non-blacks MDRD (S/P/Bld) [Vol rate/Area] 46 mL/min/{1.73_m2} Low >60 [facility] Comment on above: mL/min/1.73m2 CKD-EP I Creatinine Equation (2020) Potassium measurement (mass/ volume)Ordered By: Victor M Rojas on 02-11-2025 Potassium (Unsp spec) [Mass/Vol] 4.5 mmol/L 3.3-5.1 [facility] Serum creatinine measurement (mass/volume)Ordered By: Victor M Rojas on 02-11-2025 Creatinine [Mass/Vol] 1.51 mg/dL High 0.70-1.20 [facility] Serum glucose measurement (m ass/volume)Ordered By: Victor M Rojas on 02-11-2025 Glucose [Mass/Vol] 148 mg/dL High 70-99 [facility] Serum or plasma albumin akash urement (mass/volume)Ordered By: Victor M Rojas on 02-11-2025 Albumin [Mass/Vol] 3.3 g/dL Low 3.4-4.8 [facility] Serum or plasma calcium akash urement (mass/volume)Ordered By: Victor M Rojas on 02-11-2025 Calcium [Mass/Vol] 8.2 mg/dL 7.6-11.0 [facility] Serum or plasma urea nitroge n measurement (mass/volume)Ordered By: Victor M Rojas on 02-11-2025 Urea nitrogen [Mass/Vol] 33 mg/dL High 4-19 [facility] Sodium levelOrdered By: Brandon Rojas on 02-11-2025 Sodium [Moles/Vol] 139 mmol/L 133-145 [facility] Anion gap in Serum or Plasma Ordered By: Victor M Rojas on 02-04-2025 Anion gap [Moles/Vol] 13 mmol/L 5-15 [facility] BUN/creatinine ratioOrdered By: Victor M Rojas on 02-04-2025 Urea nitrogen/Creatinine [Mass ratio] 15.7 mg/mg 10-20 [facility] Carbon dioxide, total [Moles /volume] in Central venous bloodOrdered By: Victor M Rojas on 02-04-2025 CO2 [Moles/Vol] 19.7 mmol/L Low 21.0-32.0 [facility] Chloride assayOrdered By: Stefan Rojas on 02-04-2025 Chloride [Moles/Vol] 106 mmol/L 98-108 [facility] Glomerular filtration rate ( GFR) estimation/1.73 sq m using serum, plasma, or whole bOrdered By: Victor M Rojas on 02-04-2025 GFR/1.73 sq M.predicted among non-blacks MDRD (S/P/Bld) [Vol rate/Area] 41 mL/min/{1.73_m2} Low >60 [facility] Comment on above: mL/min/1.73m2 CKD-EP I Creatinine Equation (2020) Potassium measurement (mass/ volume)Ordered By: Victor M Rojas on 02-04-2025 Potassium (Unsp spec) [Mass/Vol] 4.2 mmol/L 3.3-5.1 [facility] Serum creatinine measurement (mass/volume)Ordered By: Victor M Rojas on 02-04-2025 Creatinine [Mass/Vol] 1.64 mg/dL High 0.70-1.20 [facility] Serum glucose measurement (m ass/volume)Ordered By: Victor M Rojas on 02-04-2025 Glucose [Mass/Vol] 76 mg/dL 70-99 [facility] Serum or plasma albumin akash urement (mass/volume)Ordered By: Victor M Rojas on 02-04-2025 Albumin [Mass/Vol] 3.4 g/dL 3.4-4.8 [facility] Serum or plasma calcium akash urement (mass/volume)Ordered By: Victor M Rojas on 02-04-2025 Calcium [Mass/Vol] 8.4 mg/dL 7.6-11.0 [facility] Serum or plasma urea nitroge n measurement (mass/volume)Ordered By: Victor M Rojas on 02-04-2025 Urea nitrogen [Mass/Vol] 26 mg/dL High 4-19 [facility] Sodium levelOrdered By: Brandon Rojas on 02-04-2025 Sodium [Moles/Vol] 139 mmol/L 133-145 [facility] Anion gap in Serum or Plasma Ordered By: Victor M Rojas on 01-28-2025 Anion gap [Moles/Vol] 12 mmol/L 5-15 [facility] BUN/creatinine ratioOrdered By: Victor M Rojas on 01-28-2025 Urea nitrogen/Creatinine [Mass ratio] 15.7 mg/mg 10-20 [facility] Carbon dioxide, total [Moles /volume] in Central venous bloodOrdered By: Victor M Rojas on 01-28-2025 CO2 [Moles/Vol] 19.7 mmol/L Low 21.0-32.0 [facility] Chloride assayOrdered By: Stefan Rojas on 01-28-2025 Chloride [Moles/Vol] 106 mmol/L 98-108 [facility] Glomerular filtration rate ( GFR) estimation/1.73 sq m using serum, plasma, or whole bOrdered By: Victor M Rojas on 01-28-2025 GFR/1.73 sq M.predicted among non-blacks MDRD (S/P/Bld) [Vol rate/Area] 38 mL/min/{1.73_m2} Low >60 [facility] Comment on above: mL/min/1.73m2 CKD-EP I Creatinine Equation (2020) Potassium measurement (mass/ volume)Ordered By: Victor M Rojas on 01-28-2025 Potassium (Unsp spec) [Mass/Vol] 4.1 mmol/L 3.3-5.1 [facility] Serum creatinine measurement (mass/volume)Ordered By: Victor M Rojas on 01-28-2025 Creatinine [Mass/Vol] 1.74 mg/dL High 0.70-1.20 [facility] Serum glucose measurement (m ass/volume)Ordered By: Victor M Rojas on 01-28-2025 Glucose [Mass/Vol] 137 mg/dL High 70-99 [facility] Serum or plasma albumin akash urement (mass/volume)Ordered By: Victor M Rojas on 01-28-2025 Albumin [Mass/Vol] 3.2 g/dL Low 3.4-4.8 [facility] Serum or plasma calcium akash urement (mass/volume)Ordered By: Victor M Rojas on 01-28-2025 Calcium [Mass/Vol] 8.1 mg/dL 7.6-11.0 [facility] Serum or plasma urea nitroge n measurement (mass/volume)Ordered By: Victor M Rojas on 01-28-2025 Urea nitrogen [Mass/Vol] 27 mg/dL High 4-19 [facility] Sodium levelOrdered By: Brandon Rojas on 01-28-2025 Sodium [Moles/Vol] 138 mmol/L 133-145 [facility] Anion gap in Serum or Plasma Ordered By: Victor M Rojas on 01-22-2025 Anion gap [Moles/Vol] 15 mmol/L 5-15 [facility] BUN/creatinine ratioOrdered By: Victor M Rojas on 01-22-2025 Urea nitrogen/Creatinine [Mass ratio] 24.3 mg/mg High 10-20 [facility] Carbon dioxide, total [Moles /volume] in Central venous bloodOrdered By: Victor M Rojas on 01-22-2025 CO2 [Moles/Vol] 18.3 mmol/L Low 21.0-32.0 [facility] Chloride assayOrdered By: Stefan Rojas on 01-22-2025 Chloride [Moles/Vol] 103 mmol/L 98-108 [facility] Glomerular filtration rate ( GFR) estimation/1.73 sq m using serum, plasma, or whole bOrdered By: Victor M Rojas on 01-22-2025 GFR/1.73 sq M.predicted among non-blacks MDRD (S/P/Bld) [Vol rate/Area] 33 mL/min/{1.73_m2} Low >60 [facility] Comment on above: mL/min/1.73m2 CKD-EP I Creatinine Equation (2020) Potassium measurement (mass/ volume)Ordered By: Victor M Rojas on 01-22-2025 Potassium (Unsp spec) [Mass/Vol] 3.9 mmol/L 3.3-5.1 [facility] Serum creatinine measurement (mass/volume)Ordered By: Victor M Rojas on 01-22-2025 Creatinine [Mass/Vol] 1.96 mg/dL High 0.70-1.20 [facility] Serum glucose measurement (m ass/volume)Ordered By: Victor M Darwinkelly on 01-22-2025 Glucose [Mass/Vol] 83 mg/dL 70-99 [facility] Serum or plasma albumin akash urement (mass/volume)Ordered By: Victor M Granadosluiskaran on 01-22-2025 Albumin [Mass/Vol] 3.3 g/dL Low 3.4-4.8 [facility] Serum or plasma calcium akash urement (mass/volume)Ordered By: Stefanvianeyleonaprice Granadosluiskaran on 01-22-2025 Calcium [Mass/Vol] 8.2 mg/dL 7.6-11.0 [facility] Serum or plasma urea nitroge n measurement (mass/volume)Ordered By: Victor M Granadosluiskaran on 01-22-2025 Urea nitrogen [Mass/Vol] 48 mg/dL High 4-19 [facility] Sodium levelOrdered By: Stefanvianey wynn Bob on 01-22-2025 Sodium [Moles/Vol] 136 mmol/L 133-145 [facility] Absolute lymphocyte countOrd ered By: Brandonleonaprice Granadosluiskaran on 01-20-2025 Lymphocytes Auto (Unsp spec) [#/Vol] 1.51 10*3/uL 0.83-4.51 [facility] Absolute neutrophil countOrd ered By: Victor M Granadosluiskaran on 01-20-2025 Neutrophils (Bld) [#/Vol] 6.1 10*3/uL 2.0-7.7 [facility] Anion gap in Serum or Plasma Ordered By: Milyprice Granadosluiskaran on 01-20-2025 Anion gap [Moles/Vol] 16 mmol/L High 5-15 [facility] Automated lymphocyte count a s percentage of total leukocytesOrdered By: Milyprice Granadosluiskaran on 01-20-2025 Lymphocytes/100 WBC Auto (Unsp spec) 16.5 % Low 19-41 [facility] BUN/creatinine ratioOrdered By: Victor M Granadosluiskaran on 01-20-2025 Urea nitrogen/Creatinine [Mass ratio] 16.1 mg/mg 10-20 [facility] Basophil percentageOrdered B y: Victor M Rojas on 01-20-2025 Basophils/100 WBC (Bld) 0.3 % 0-1 [facility] Carbon dioxide, total [Moles /volume] in Central venous bloodOrdered By: Victor M Rojas on 01-20-2025 CO2 [Moles/Vol] 19.5 mmol/L Low 21.0-32.0 [facility] Chloride assayOrdered By: Stefan Rojas on 01-20-2025 Chloride [Moles/Vol] 103 mmol/L 98-108 [facility] Eosinophil percentageOrdered By: Victor M Rojas on 01-20-2025 Eosinophils/100 WBC (Bld) 1.2 % 0-5 [facility] Erythrocyte distribution wid th ratioOrdered By: radha Rojas on 01-20-2025 Erythrocyte distribution width (RBC) [Ratio] 14.9 % High 11.6-14.6 [facility] Erythrocyte distribution wid th standard deviationOrdered By: Victor M Rojas on 01-20-2025 Erythrocyte distribution width (RBC) [Ratio] 47.9 fl High 35.1-43.9 [facility] Glomerular filtration rate ( GFR) estimation/1.73 sq m using serum, plasma, or whole bOrdered By: Victor M Rojas on 01-20-2025 GFR/1.73 sq M.predicted among non-blacks MDRD (S/P/Bld) [Vol rate/Area] 29 mL/min/{1.73_m2} Low >60 [facility] Comment on above: mL/min/1.73m2 CKD-EP I Creatinine Equation (2020) Hematocrit Auto (Bld) [Volum e fraction]Ordered By: Victor M Rojas on 01-20-2025 Hematocrit (Bld) [Volume fraction] 42.5 % 40-54 [facility] Hemoglobin measurementOrdere d By: Victor M Rojas on 01-20-2025 Hemoglobin (Bld) [Mass/Vol] 14.0 g/dL 13.0-16.5 [facility] Immature granulocytes/100 WB C Auto (Bld)Ordered By: Victor M Rojas on 01-20-2025 Immature granulocytes/100 WBC (Bld) 2.100 % High 0.0-0.9 [facility] Comment on above: IG% - Immature Granu locytes (promyelocytes, myelocytes and metamyelocytes) > 1% indicates that a LEFT SHIFT is Present. MCV (mean corpuscular volume ) determinationOrdered By: Victor M Rojas on 01-20-2025 MCV (RBC) [Entitic vol] 88.4 fL 80-94 [facility] Mean corpuscular hemoglobin (MCH) determinationOrdered By: radha Rojas on 01-20-2025 MCH (RBC) [Entitic mass] 29.1 pg 27.0-32.0 [facility] Mean corpuscular hemoglobin concentration (MCHC) determinationOrdered By: vianeyelchoprice Rojas on 01-20-2025 MCHC (RBC) [Mass/Vol] 32.9 g/dL 32-36 [facility] Mean platelet volume determi nationOrdered By: Victor M Rojas on 01-20-2025 Platelet mean volume (Bld) [Entitic vol] 11.6 fL 6.2-12.0 [facility] Monocyte percentageOrdered B y: Victor M Rojas on 01-20-2025 Monocytes/100 WBC (Bld) 13.4 % High 0-10 [facility] Neutrophil percentageOrdered By: radha Rojas on 01-20-2025 Neutrophils/100 WBC (Bld) 66.5 % 47-70 [facility] Nucleated red blood cell per centageOrdered By: Victor M Rojas on 01-20-2025 Nucleated RBC/100 WBC (Bld) [Ratio] 0 % 0-5 [facility] Platelet countOrdered By: Stefan Rojas on 01-20-2025 Platelets (Bld) [#/Vol] 218 10*3/uL 150-450 [facility] Potassium measurement (mass/ volume)Ordered By: Victor M Rojas on 01-20-2025 Potassium (Unsp spec) [Mass/Vol] 4.0 mmol/L 3.3-5.1 [facility] RBC Auto (Bld) [#/Vol]Ordere d By: Victor M Rojas on 01-20-2025 RBC (Bld) [#/Vol] 4.81 10*6/uL 4.6-6.2 [facility] Serum creatinine measurement (mass/volume)Ordered By: Victor M Rojas on 01-20-2025 Creatinine [Mass/Vol] 2.19 mg/dL High 0.70-1.20 [facility] Serum glucose measurement (m ass/volume)Ordered By: Victor M Rojas on 01-20-2025 Glucose [Mass/Vol] 211 mg/dL High 70-99 [facility] Serum or plasma albumin akash urement (mass/volume)Ordered By: Victor M Rojas on 01-20-2025 Albumin [Mass/Vol] 3.3 g/dL Low 3.4-4.8 [facility] Serum or plasma calcium akash urement (mass/volume)Ordered By: Victor M Rojas on 01-20-2025 Calcium [Mass/Vol] 8.4 mg/dL 7.6-11.0 [facility] Serum or plasma urea nitroge n measurement (mass/volume)Ordered By: Victor M Rojas on 01-20-2025 Urea nitrogen [Mass/Vol] 35 mg/dL High 4-19 [facility] Sodium levelOrdered By: Brandon perezkandis Bob on 01-20-2025 Sodium [Moles/Vol] 139 mmol/L 133-145 [facility] White blood cell (WBC) count Ordered By: Victor M Rojas on 01-20-2025 WBC (Bld) [#/Vol] 9.2 10*3/uL 4.4-11.0 [facility] CNOVon 01-14-2025 CNOV Office Visit (URALANT ) ELIZABETH MODI ([id number]) 1940 [facility] Date Time Provider Department 01/14/25 9:15 [...] patient: Yes Procedure confirmed with physician and account support specialist: Yes UNIVERSAL PROTOCOL / SAFETY [...] wit (more content not included)... Normal [facility] Anion gap in Serum or Plasma Ordered By: Victor M Rojas on 12-18-2024 Anion gap [Moles/Vol] 14 mmol/L 5-15 [facility] BUN/creatinine ratioOrdered By: Victor M Rojas on 12-18-2024 Urea nitrogen/Creatinine [Mass ratio] 18.6 mg/mg 10-20 [facility] Bilirubin, totalOrdered By: Victor M Rojas on 12-18-2024 Bilirubin [Mass/Vol] 0.79 mg/dL 0.00-1.30 [facility] Calculated very low density lipoprotein (VLDL) cholesterol measurementOrdered By: Victor M Rojas on 12-18-2024 Calculated very low density lipoprotein (VLDL) cholesterol measurement 25 mg/dL 5-40 [facility] Carbon dioxide, total [Moles /volume] in Central venous bloodOrdered By: Victor M Rojas on 12-18-2024 CO2 [Moles/Vol] 19.2 mmol/L Low 21.0-32.0 [facility] Chloride assayOrdered By: Stefan Rojas on 12-18-2024 Chloride [Moles/Vol] 105 mmol/L 98-108 [facility] Erythrocyte distribution wid th ratioOrdered By: Victor M Rojas on 12-18-2024 Erythrocyte distribution width (RBC) [Ratio] 14.9 % High 11.6-14.6 [facility] Erythrocyte distribution wid th standard deviationOrdered By: Victor M Rojas on 12-18-2024 Erythrocyte distribution width (RBC) [Ratio] 48.5 fl High 35.1-43.9 [facility] Glomerular filtration rate ( GFR) estimation/1.73 sq m using serum, plasma, or whole bOrdered By: Victor M Rojas on 12-18-2024 GFR/1.73 sq M.predicted among non-blacks MDRD (S/P/Bld) [Vol rate/Area] 38 mL/min/{1.73_m2} Low >60 [facility] Comment on above: mL/min/1.73m2 CKD-EP I Creatinine Equation (2020) Hematocrit Auto (Bld) [Volum e fraction]Ordered By: Victor M Rojas on 12-18-2024 Hematocrit (Bld) [Volume fraction] 44.3 % 40-54 [facility] Hemoglobin A1c percentageOrd ered By: Victor M Rojas on 12-18-2024 HbA1c (Bld) [Mass fraction] 8.8 % High <5.7 [facility] Comment on above: Normal < 5.7 % Predi abetic 5.7 - 6.4 % Diabetic >or= 6.5 % Please note range changes. Hemoglobin measurementOrdere d By: Victor M Rojas on 12-18-2024 Hemoglobin (Bld) [Mass/Vol] 14.1 g/dL 13.0-16.5 [facility] LDL calc ser/plasOrdered By: Victor M Rojas on 12-18-2024 Cholesterol in LDL [Mass/Vol] 48 mg/dL [facility] Comment on above: Yoxwsktqag=267-339 m g/dL & Higher Wzjv=341 mg/dL or greater Laboratory - Chemistry and C hemistry - challengeOrdered By: Victor M Rojas on 12-18-2024 AST [Catalytic activity/Vol] 27 U/L <38 [facility] MCV (mean corpuscular volume ) determinationOrdered By: Victor M Rojas on 12-18-2024 MCV (RBC) [Entitic vol] 89.1 fL 80-94 [facility] Mean corpuscular hemoglobin (MCH) determinationOrdered By: Victor M Rojas on 12-18-2024 MCH (RBC) [Entitic mass] 28.4 pg 27.0-32.0 [facility] Mean corpuscular hemoglobin concentration (MCHC) determinationOrdered By: Victor M Rojas on 12-18-2024 MCHC (RBC) [Mass/Vol] 31.8 g/dL Low 32-36 [facility] Mean platelet volume determi nationOrdered By: Victor M Rojas on 12-18-2024 Platelet mean volume (Bld) [Entitic vol] 11.5 fL 6.2-12.0 [facility] Platelet countOrdered By: Stefan Rojas on 12-18-2024 Platelets (Bld) [#/Vol] 218 10*3/uL 150-450 [facility] Potassium measurement (mass/ volume)Ordered By: Victor M Rojas on 12-18-2024 Potassium (Unsp spec) [Mass/Vol] 4.3 mmol/L 3.3-5.1 [facility] RBC Auto (Bld) [#/Vol]Ordere d By: Victor M Rojas on 12-18-2024 RBC (Bld) [#/Vol] 4.97 10*6/uL 4.6-6.2 [facility] Screening total cholesterol/ high density lipoprotein (HDL) cholesterol ratioOrdered By: Victor M Rojas on 12-18-2024 Cholesterol.total/Cholest giuliana in HDL [Mass ratio] 4.53 {ratio} [facility] Serum creatinine measurement (mass/volume)Ordered By: Victor M Rojas on 12-18-2024 Creatinine [Mass/Vol] 1.74 mg/dL High 0.70-1.20 [facility] Serum globulin measurementOr dered By: Victor M Rojas on 12-18-2024 Globulin (S) [Mass/Vol] 3.5 g/dL 2.2-4.2 [facility] Serum glucose measurement (m ass/volume)Ordered By: Victor M Rojas on 12-18-2024 Glucose [Mass/Vol] 82 mg/dL 70-99 [facility] Serum or plasma alanine mojica otransferase (ALT) measurementOrdered By: Stefanradha Rojas on 12-18-2024 ALT [Catalytic activity/Vol] 20 U/L <47 [facility] Serum or plasma albumin akash urement (mass/volume)Ordered By: Stefantianna Rojas on 12-18-2024 Albumin [Mass/Vol] 3.3 g/dL Low 3.4-4.8 [facility] Serum or plasma albumin/glob ulin mass ratioOrdered By: [facility] Darwinkaran on 12-18-2024 Albumin/Globulin [Mass ratio] 1.0 {ratio} 0.9-2.4 [facility] Serum or plasma alkaline marielos sphatase measurementOrdered By: [facility] Granadoskaran 12-18-2024 ALP [Catalytic activity/Vol] 117 U/L 40-129 [facility] Serum or plasma calcium akash urement (mass/volume)Ordered By: Victor M Rojas 12-18-2024 Calcium [Mass/Vol] 8.8 mg/dL 7.6-11.0 [facility] Serum or plasma cholesterol in HDL measurement (mass/volume)Ordered By: Stefanradha Granadoskaran 12-18-2024 Cholesterol in HDL [Mass/Vol] 21 mg/dL Low >40 [facility] Comment on above: National Cholesterol Education Program (NCEP) guidelines:<40 mg/dL: Low HDL-cholesterol (major risk factor for CHD)>= 60 mg/dL: High HDL-cholesterol (negative risk factor for CHD)HDL-cholesterol is affected by a number of factors, e.g. smoking, exercise, hormones, sex and age. Serum or plasma cholesterol measurement (mass/volume)Ordered By: [facility] Granadoskaran on 12-18-2024 Cholesterol [Mass/Vol] 94 mg/dL <201 [facility] Comment on above: Cholesterol level, D esirable <200 mg/dLBorderline high cholesterol 200-239 mg/dLHigh cholesterol >=240 mg/dLRecommendations of the NCEP Adult Treatment Panel for the following risk-cutoff thresholds for the [place] population. Serum or plasma urea nitroge n measurement (mass/volume)Ordered By: Victor M Rojas on 12-18-2024 Urea nitrogen [Mass/Vol] 32 mg/dL High 4-19 [facility] Sodium levelOrdered By: Brandon perezkandis Bob on 12-18-2024 Sodium [Moles/Vol] 138 mmol/L 133-145 [facility] TSH DL <= 0.005 mIU/L QnOrde red By: Victor M Rojas on 12-18-2024 TSH Qn 1.380 uIU/mL 0.300-4.200 [facility] Total proteinOrdered By: Prosper lonnieprice Rojas on 12-18-2024 Protein [Mass/Vol] 6.8 g/dL 5.9-8.4 [facility] Triglycerides measurementOrd ered By: Victor M Rojas on 12-18-2024 Triglyceride [Mass/Vol] 125 mg/dL <199 [facility] Comment on above: The drugs N-Acetylcy steine and Metamizole may falsely depress this assay. Normal range: <150 mg/dLBorderline High: 150-199 mg/dLHigh: 200-499 mg/dLVery High: >500 mg/dL White blood cell (WBC) count Ordered By: Victor M Rojas on 12-18-2024 WBC (Bld) [#/Vol] 7.7 10*3/uL 4.4-11.0 [facility] Anion gap in Serum or Plasma Ordered By: Victor M Rojas on 11-20-2024 Anion gap [Moles/Vol] 13 mmol/L 5-15 [facility] BUN/creatinine ratioOrdered By: Victor M Rojas on 11-20-2024 Urea nitrogen/Creatinine [Mass ratio] 16.5 mg/mg 10-20 [facility] Carbon dioxide, total [Moles /volume] in Central venous bloodOrdered By: Victor M Rojas on 11-20-2024 CO2 [Moles/Vol] 20.9 mmol/L Low 21.0-32.0 [facility] Chloride assayOrdered By: Stefan Rojas on 11-20-2024 Chloride [Moles/Vol] 104 mmol/L 98-108 [facility] Glomerular filtration rate ( GFR) estimation/1.73 sq m using serum, plasma, or whole bOrdered By: Victor M Rojas on 11-20-2024 GFR/1.73 sq M.predicted among non-blacks MDRD (S/P/Bld) [Vol rate/Area] 38 mL/min/{1.73_m2} Low >60 [facility] Comment on above: mL/min/1.73m2 CKD-EP I Creatinine Equation (2020) Potassium measurement (mass/ volume)Ordered By: Victor M Rojas on 11-20-2024 Potassium (Unsp spec) [Mass/Vol] 4.2 mmol/L 3.3-5.1 [facility] Serum creatinine measurement (mass/volume)Ordered By: Victor M Rojas on 11-20-2024 Creatinine [Mass/Vol] 1.75 mg/dL High 0.70-1.20 [facility] Serum glucose measurement (m ass/volume)Ordered By: Victor M Rojas on 11-20-2024 Glucose [Mass/Vol] 130 mg/dL High 70-99 [facility] Serum or plasma albumin akash urement (mass/volume)Ordered By: Victor M Rojas on 11-20-2024 Albumin [Mass/Vol] 3.5 g/dL 3.4-4.8 [facility] Serum or plasma calcium akash urement (mass/volume)Ordered By: Victor M Rojas on 11-20-2024 Calcium [Mass/Vol] 8.8 mg/dL 7.6-11.0 [facility] Serum or plasma urea nitroge n measurement (mass/volume)Ordered By: Victor M Rojas on 11-20-2024 Urea nitrogen [Mass/Vol] 29 mg/dL High 4-19 [facility] Sodium levelOrdered By: Brandon Rojas on 11-20-2024 Sodium [Moles/Vol] 139 mmol/L 133-145 [facility] Calculated very low density lipoprotein (VLDL) cholesterol measurementOrdered By: Christina Whipple on 11-07-2024 Calculated very low density lipoprotein (VLDL) cholesterol measurement 34 mg/dL 5-40 [facility] LDL calc ser/plasOrdered By: Christina Whipple on 11-07-2024 Cholesterol in LDL [Mass/Vol] 43 mg/dL [facility] Comment on above: Zdvtqccnww=662-671 m g/dL & Higher Ggzn=934 mg/dL or greater Screening total cholesterol/ high density lipoprotein (HDL) cholesterol ratioOrdered By: Christina Whipple on 11-07-2024 Cholesterol.total/Cholest giuliana in HDL [Mass ratio] 4.60 {ratio} [facility] Serum or plasma cholesterol in HDL measurement (mass/volume)Ordered By: Christina Whipple on 11-07-2024 Cholesterol in HDL [Mass/Vol] 21 mg/dL Low >40 [facility] Comment on above: National Cholesterol Education Program (NCEP) guidelines:<40 mg/dL: Low HDL-cholesterol (major risk factor for CHD)>= 60 mg/dL: High HDL-cholesterol (negative risk factor for CHD)HDL-cholesterol is affected by a number of factors, e.g. smoking, exercise, hormones, sex and age. Serum or plasma cholesterol measurement (mass/volume)Ordered By: Christina Whipple on 11-07-2024 Cholesterol [Mass/Vol] 99 mg/dL <201 [facility] Comment on above: Cholesterol level, D esirable <200 mg/dLBorderline high cholesterol 200-239 mg/dLHigh cholesterol >=240 mg/dLRecommendations of the NCEP Adult Treatment Panel for the following risk-cutoff thresholds for the [place] population. Triglycerides measurementOrd ered By: Christina Whipple on 11-07-2024 Triglyceride [Mass/Vol] 171 mg/dL <199 [facility] Comment on above: The drugs N-Acetylcy steine and Metamizole may falsely depress this assay. Normal range: <150 mg/dLBorderline High: 150-199 mg/dLHigh: 200-499 mg/dLVery High: >500 mg/dL Anion gap in Serum or Plasma Ordered By: Victor M Rojas on 10-23-2024 Anion gap [Moles/Vol] 12 mmol/L 5-15 [facility] BUN/creatinine ratioOrdered By: Victor M Rojas on 10-23-2024 Urea nitrogen/Creatinine [Mass ratio] 21.7 mg/mg High 10-20 [facility] Carbon dioxide, total [Moles /volume] in Central venous bloodOrdered By: Victor M Rojas on 10-23-2024 CO2 [Moles/Vol] 19.8 mmol/L Low 21.0-32.0 [facility] Chloride assayOrdered By: Stefan Rojas on 10-23-2024 Chloride [Moles/Vol] 106 mmol/L 98-108 [facility] Glomerular filtration rate ( GFR) estimation/1.73 sq m using serum, plasma, or whole bOrdered By: Victor M Rojas on 10-23-2024 GFR/1.73 sq M.predicted among non-blacks MDRD (S/P/Bld) [Vol rate/Area] 39 mL/min/{1.73_m2} Low >60 [facility] Comment on above: mL/min/1.73m2 CKD-EP I Creatinine Equation (2020) Potassium measurement (mass/ volume)Ordered By: Victor M Rojas on 10-23-2024 Potassium (Unsp spec) [Mass/Vol] 4.0 mmol/L 3.3-5.1 [facility] Serum creatinine measurement (mass/volume)Ordered By: Victor M Rojas on 10-23-2024 Creatinine [Mass/Vol] 1.73 mg/dL High 0.70-1.20 [facility] Serum glucose measurement (m ass/volume)Ordered By: Victor M Rojas on 10-23-2024 Glucose [Mass/Vol] 129 mg/dL High 70-99 [facility] Serum or plasma albumin akash urement (mass/volume)Ordered By: Victor M Rojas on 10-23-2024 Albumin [Mass/Vol] 3.3 g/dL Low 3.4-4.8 [facility] Serum or plasma calcium akash urement (mass/volume)Ordered By: Victor M Rojas on 10-23-2024 Calcium [Mass/Vol] 8.6 mg/dL 7.6-11.0 [facility] Serum or plasma urea nitroge n measurement (mass/volume)Ordered By: Victor M Rojas on 10-23-2024 Urea nitrogen [Mass/Vol] 38 mg/dL High 4-19 [facility] Sodium levelOrdered By: Brandon Rojas on 10-23-2024 Sodium [Moles/Vol] 137 mmol/L 133-145 [facility] Cardiology Visit Reporton Cardiology Visit Report [facility] [address] [place] [address] OFFICE VISIT Date of Service: 10/16/24 MR#: [id number] Acct: [id number] Name: ELIZABETH MODI Rep #: [id number] : 1940 Provider: GILL Connor Age/Sex: 84/M [place] [facility] [place]: [place] HPI HPI History of Present [...] x 1 in December of 2021 at [facility] in [place]. He had a left internal mammary artery to left anterior descending coronary artery. He is residing at a [place]. 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 Normal [facility] Elbow min 3 Viewson 10-16-19 Elbow min 3 Views [facility] Imaging Services [address] [place], [place] [id number] Elbow min 3 Views MR#: [id number] Acct: [id number] Name: ELIZABETH MODI Rep #: [id number] : 1940 M 84 From: Edy Kapaida MD PCP: Dr. Diana Salmeron MD Status: REG ER Study: Elbow min 3 Views Date of Exam: 10/15/24 Exam# [id number] Ordering Dr: Jesse Angel DO EXAM: Left elbow CLINICAL HISTORY: Injury, pain COMPARISON: None TECHNIQUE: Three views FINDINGS: No acute fracture or dislocation. Moderate joint space narrowing and osteophyte formation consistent with moderate arthrosis. Normal soft tissues. RAD/Elbow min 3 Views IMPRESSION: No acute fracture or dislocation. Moderate arthrosis. Reading Location: [id number] CC: Dr. Diana Salmeron MD; Dr. Jesse Angel DO Cigarette Carton Sealer: Signed Normal [facility] Emergency Department Summary on 10-15-2024 Emergency Department Summary [facility] Medical Records Department [address] [place] [address] Emergency Department Summary 10/15/24 MR#: [id number] Acct: [id number] Name: ELIZABETH MODI Rep #: [id number] : 1940 84 From: Jesse Angel DO [...] of his last tetanus. 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 Normal [facility] Orb Sella Post Fossa Ear w/o on 10-15-2024 Orb Sella Post Fossa Ear w/o [facility] Imaging Services [address] [place] [id number] Orb Sella Post Fossa Ear w/o MR#: [id number] Acct: [id number] Name: ELIZABETH MODI Rep #: [id number] : 1940 M 84 From: Edy Kapadia MD PCP: Dr. Diana Salmeron MD Status: REG ER Study: Orb Sella Post Fossa Ear w/o Date of Exam: Exam# [id number] Ordering Dr: Jesse Angel DO PROCEDURE: ORB [...] ORBITAL FRACTURE OR RETROBULBAR HEMATOMA. Reading Location: [facility] CC: Dr. Diana Salmeron MD; Dr. Jesse Angel, DO Cigarette Carton Sealer: Signed Normal [facility] Bacteria Ur Culton 5 Bacteria identified Cx [...] technique or straight catheterization for???urine???collecti on. Normal [facility] Comment on above: Performed By: #### 6 30-4 #### [facility] CLIA [id number] [address] [place] [address] [place] CNOVon 10-01-2024 CNOV Office Visit (UROLWS ) ELIZABETH MODI ([id number]) 1940 M [facility] Date Time Provider Department 10/01/24 1:00 [...] Nikolai Portillo PA-C 10/01/2024 2:58 PM Signed COUNT INCLUDES THE [facility] PATIENT CLINIC NOTE (M) Some elements [...] (ADULTS MULTIVITAMIN ORAL) Take by mouth. vit C,H-Lb-adxgl-lutein-ze axan (PRESERVISION AREDS-2) 250-90-40-1 mg Take 1 [...] mg ta (more content not included)... [facility] (UROLWS) ELIZABETH MODI ([id number]) 1940 M T Date Time Provider Department [...] Diagnosis:Gross hematuria [R31.0] Order(s):CT UROGRAM WO/W IVCON [[id number]] Order #: [id number] FUTURE iv contrast (will be provided with [...] MULTIVITAMIN ORAL) Take by mouth. - vit C,Y-Rm-xodcq-lutein-ze axan (PRESERVISION AREDS-2) 250-90-40-1 mg Take 1 [...] mouth once (more content not included)... Normal [facility] Anion gap in Serum or Plasma Ordered By: Victor M Rojas on 09-18-2024 Anion gap [Moles/Vol] 14 mmol/L 5-15 [facility] BUN/creatinine ratioOrdered By: Victor M Rojas on 09-18-2024 Urea nitrogen/Creatinine [Mass ratio] 14.2 mg/mg 10-20 [facility] Bilirubin, totalOrdered By: Victor M Rojas on 09-18-2024 Bilirubin [Mass/Vol] 0.55 mg/dL 0.00-1.30 [facility] Calculated very low density lipoprotein (VLDL) cholesterol measurementOrdered By: Victor M Rojas on 09-18-2024 Calculated very low density lipoprotein (VLDL) cholesterol measurement 38 mg/dL [facility] VLDL Cholesterol 38 mg/dL [facility] Carbon dioxide, total [Moles /volume] in Central venous bloodOrdered By: Victor M Rojas on 09-18-2024 CO2 [Moles/Vol] 19.8 mmol/L Low 21.0-32.0 [facility] Chloride assayOrdered By: Stefan Rojas on 09-18-2024 Chloride [Moles/Vol] 102 mmol/L 98-108 [facility] Erythrocyte distribution wid th (RBC) [Ratio]Ordered By: Victor M Rojas on 09-18-2024 Erythrocyte distribution width (RBC) [Entitic vol] 47.1 fL High 35.1-43.9 [facility] Erythrocyte distribution wid th ratioOrdered By: Victor M Rojas on 09-18-2024 Erythrocyte distribution width (RBC) [Ratio] 14.4 % 11.6-14.6 [facility] Erythrocyte distribution wid th standard deviationOrdered By: Victor M Rojas on 09-18-2024 Erythrocyte distribution width (RBC) [Ratio] 47.1 fl High 35.1-43.9 [facility] GFR/1.73 sq M.predicted jacobo g non-blacks MDRD (S/P/Bld) [Vol rate/Area]Ordered By: Victor M Rojas on 09-18-2024 Estimated GFR (MDRD) Non-Af Amer 27 Low >60 [facility] Comment on above: mL/min/1.73m2 CKD-EP I Creatinine Equation (2020) Glomerular filtration rate ( GFR) estimation/1.73 sq m using serum, plasma, or whole bOrdered By: Victor M Rojas on 09-18-2024 GFR/1.73 sq M.predicted among non-blacks MDRD (S/P/Bld) [Vol rate/Area] 27 mL/min/{1.73_m2} Low >60 [facility] Comment on above: mL/min/1.73m2 CKD-EP I Creatinine Equation (2020) Hematocrit Auto (Bld) [Volum e fraction]Ordered By: Victor M Rojas on 09-18-2024 Hematocrit (Bld) [Volume fraction] 41.2 % 40-54 [facility] Hemoglobin A1c percentageOrd ered By: Victor M Rojas on 09-18-2024 HbA1c (Bld) [Mass fraction] 11.3 % >5.7 [facility] Hemoglobin measurementOrdere d By: Victor M Rojas on 09-18-2024 Hemoglobin (Bld) [Mass/Vol] 13.5 g/dL 13.0-16.5 [facility] LDL calc ser/plasOrdered By: Victor M Rojas on 09-18-2024 Cholesterol in LDL [Mass/Vol] 44 mg/dL [facility] Comment on above: Afpqjbebdl=084-892 m g/dL & Higher Lniu=033 mg/dL or greater LDL Cholesterol, Calculated 44 mg/dL [facility] Comment on above: Cxjgyfdpam=507-857 m g/dL & Higher Zczv=782 mg/dL or greater Laboratory - Chemistry and C hemistry - challengeOrdered By: Victor M Rojas on 09-18-2024 AST [Catalytic activity/Vol] 43 U/L High <38 [facility] Comment on above: Hemolysis present, R esults could be affected. MCV (mean corpuscular volume ) determinationOrdered By: Victor M Rojas on 09-18-2024 MCV (RBC) [Entitic vol] 89.6 fL 80-94 [facility] Mean corpuscular hemoglobin (MCH) determinationOrdered By: Victor M Rojas 09-18-2024 MCH (RBC) [Entitic mass] 29.3 pg 27.0-32.0 [facility] Mean corpuscular hemoglobin concentration (MCHC) determinationOrdered By: Victor M Rojas on 09-18-2024 MCHC (RBC) [Mass/Vol] 32.8 g/dL 32-36 [facility] Mean platelet volume determi nationOrdered By: Victor M Rojas on 09-18-2024 Platelet mean volume (Bld) [Entitic vol] 12.0 fL 6.2-12.0 [facility] Platelet countOrdered By: Stefan Rojas on 09-18-2024 Platelets (Bld) [#/Vol] 209 10*3/uL 150-450 [facility] Potassium (Unsp spec) [Mass/ Vol]Ordered By: Victor M Rojas on 09-18-2024 Potassium [Moles/Vol] 4.1 mmol/L 3.3-5.1 [facility] Comment on above: Hemolysis present, R esults could be affected. Potassium measurement (mass/ volume)Ordered By: Victor M Rojas on 09-18-2024 Potassium (Unsp spec) [Mass/Vol] 4.1 mmol/L 3.3-5.1 [facility] Comment on above: Hemolysis present, R esults could be affected. RBC Auto (Bld) [#/Vol]Ordere d By: Victor M Rojas on 09-18-2024 RBC (Bld) [#/Vol] 4.60 10*6/uL 4.6-6.2 [facility] Screening total cholesterol/ high density lipoprotein (HDL) cholesterol ratioOrdered By: Victor M Rojas on 09-18-2024 Cholesterol.total/Cholest giuliana in HDL [Mass ratio] 4.29 {ratio} [facility] Serum creatinine measurement (mass/volume)Ordered By: Victor M Rojas on 09-18-2024 Creatinine [Mass/Vol] 2.35 mg/dL High 0.70-1.20 [facility] Serum globulin measurementOr dered By: Victor M Rojas on 09-18-2024 Globulin (S) [Mass/Vol] 3.4 g/dL 2.2-4.2 [facility] Serum glucose measurement (m ass/volume)Ordered By: Victor M Rojas on 09-18-2024 Glucose [Mass/Vol] 287 mg/dL High 70-99 [facility] Serum or plasma alanine mojica otransferase (ALT) measurementOrdered By: Victor M Rojas on 09-18-2024 ALT [Catalytic activity/Vol] 41 U/L <47 [facility] Serum or plasma albumin akash urement (mass/volume)Ordered By: Victor M Rojas on 09-18-2024 Albumin [Mass/Vol] 3.4 g/dL 3.4-4.8 [facility] Serum or plasma albumin/glob ulin mass ratioOrdered By: Victor M Rojas on 09-18-2024 Albumin/Globulin [Mass ratio] 1.0 {ratio} 0.9-2.4 [facility] Serum or plasma alkaline marielos sphatase measurementOrdered By: Victor M Rojas on 09-18-2024 ALP [Catalytic activity/Vol] 113 U/L 40-129 [facility] Serum or plasma calcium aksah urement (mass/volume)Ordered By: Victor M Rojas on 09-18-2024 Calcium [Mass/Vol] 9.0 mg/dL 7.6-11.0 [facility] Serum or plasma cholesterol in HDL measurement (mass/volume)Ordered By: Victor M Rojas on 09-18-2024 Cholesterol in HDL [Mass/Vol] 25 mg/dL Low >40 [facility] Comment on above: National Cholesterol Education Program (NCEP) guidelines:<40 mg/dL: Low HDL-cholesterol (major risk factor for CHD)>= 60 mg/dL: High HDL-cholesterol (negative risk factor for CHD)HDL-cholesterol is affected by a number of factors, e.g. smoking, exercise, hormones, sex and age. Serum or plasma cholesterol measurement (mass/volume)Ordered By: Victor M Rojas on 09-18-2024 Cholesterol [Mass/Vol] 108 mg/dL <201 [facility] Comment on above: Cholesterol level, D esirable <200 mg/dLBorderline high cholesterol 200-239 mg/dLHigh cholesterol >=240 mg/dLRecommendations of the NCEP Adult Treatment Panel for the following risk-cutoff thresholds for the [place] population. Serum or plasma urea nitroge n measurement (mass/volume)Ordered By: Victor M Rojas on 09-18-2024 Urea nitrogen [Mass/Vol] 33 mg/dL High 4-19 [facility] Sodium levelOrdered By: Brandon wynn Darwinluiskaran on 09-18-2024 Sodium [Moles/Vol] 135 mmol/L 133-145 [facility] TSH DL <= 0.005 mIU/L QnOrde red By: Stefanradha Granadosluiskaran on 09-18-2024 Thyroid Stimulating Hormone (TSH) 3.520 uIU/mL 0.300-4.200 [facility] TSH Qn 3.520 uIU/mL 0.300-4.200 [facility] Total proteinOrdered By: Prosper flemingprice Rojas on 09-18-2024 Protein [Mass/Vol] 6.7 g/dL 5.9-8.4 [facility] Triglycerides measurementOrd ered By: Stefanvianeyleonaprice Granadosluiskaran on 09-18-2024 Triglyceride [Mass/Vol] 192 mg/dL <199 [facility] Comment on above: The drugs N-Acetylcy steine and Metamizole may falsely depress this assay. Normal range: <150 mg/dLBorderline High: 150-199 mg/dLHigh: 200-499 mg/dLVery High: >500 mg/dL White blood cell (WBC) count Ordered By: Victor M Rojas on 09-18-2024 WBC (Bld) [#/Vol] 8.5 10*3/uL 4.4-11.0 [facility] Gastroenterology Visit Repor ton 09-06-2024 Gastroenterology Visit Report [facility]enter[facility] [address] [place] [address] OFFICE VISIT Date of Service: 09/06/24 MR#: [id number] Acct: [id number] Name: ELIZABETH MODI Rep #: [id number] : 1940 Provider: GILL Jefferson Age/Sex: 84/M Location: [facility] [place] Status: Signed Intake Vital Signs 01/11/24 07:47 [...] diarrhea only once in awhile. [facility] Medical History (Updated 03/04/24 @ 10:55 by [...] pulmonary disease) Obesity Atherosclerotic heart disease of [place] coronary artery without angina pectoris Paroxysmal atrial [...] (Reviewed 02/15/23 @ 11:03 by Briana Plata COLD MOLDING PRESS OPERATOR, COLD MOLDING PRESS OPERATOR-C) Mother Diabetes Father Diabetes Heart disease [...] presents to the office today for f/u. [facility] hospitalization 6.23-7.23 for management of choledocholithiasis, [...] Appearance: average body habitus and well nourished [facility] Head: normal to ins (more content not included)... Normal [facility] Anion gap in Serum or Plasma Ordered By: Victor M Rojas on 08-21-2024 Anion gap [Moles/Vol] 14 mmol/L 5-15 [facility] BUN/creatinine ratioOrdered By: Victor M Rojas on 08-21-2024 Urea nitrogen/Creatinine [Mass ratio] 18.2 mg/mg 10-20 [facility] Carbon dioxide, total [Moles /volume] in Central venous bloodOrdered By: Victor M Rojas on 08-21-2024 CO2 [Moles/Vol] 20.5 mmol/L Low 21.0-32.0 [facility] Chloride assayOrdered By: Stefan Rojas on 08-21-2024 Chloride [Moles/Vol] 102 mmol/L 98-108 [facility] GFR/1.73 sq M.predicted jacobo g non-blacks MDRD (S/P/Bld) [Vol rate/Area]Ordered By: Victor M Rojas on 08-21-2024 Estimated GFR (MDRD) Non-Af Amer 31 Low >60 [facility] Comment on above: mL/min/1.73m2 CKD-EP I Creatinine Equation (2020) Glomerular filtration rate ( GFR) estimation/1.73 sq m using serum, plasma, or whole bOrdered By: Victor M Rojas on 08-21-2024 GFR/1.73 sq M.predicted among non-blacks MDRD (S/P/Bld) [Vol rate/Area] 31 mL/min/{1.73_m2} Low >60 [facility] Comment on above: mL/min/1.73m2 CKD-EP I Creatinine Equation (2020) Potassium (Unsp spec) [Mass/ Vol]Ordered By: Victor M Rojas on 08-21-2024 Potassium [Moles/Vol] 4.3 mmol/L 3.3-5.1 [facility] Potassium measurement (mass/ volume)Ordered By: Victor M Rojas on 08-21-2024 Potassium (Unsp spec) [Mass/Vol] 4.3 mmol/L 3.3-5.1 [facility] Serum creatinine measurement (mass/volume)Ordered By: Victor M Rojas on 08-21-2024 Creatinine [Mass/Vol] 2.07 mg/dL High 0.70-1.20 [facility] Serum glucose measurement (m ass/volume)Ordered By: Victor M Rojas on 08-21-2024 Glucose [Mass/Vol] 198 mg/dL High 70-99 [facility] Serum or plasma albumin akash urement (mass/volume)Ordered By: Victor M Rojas on 08-21-2024 Albumin [Mass/Vol] 3.3 g/dL Low 3.4-4.8 [facility] Serum or plasma calcium akash urement (mass/volume)Ordered By: Victor M Rojas on 08-21-2024 Calcium [Mass/Vol] 8.8 mg/dL 7.6-11.0 [facility] Serum or plasma urea nitroge n measurement (mass/volume)Ordered By: Victor M Rojas on 08-21-2024 Urea nitrogen [Mass/Vol] 38 mg/dL High 4-19 [facility] Serum phosphorus measurement Ordered By: Victor M Rojas on 08-21-2024 Phosphorus Level 4.2 mg/dL 2.7-4.5 [facility] Sodium levelOrdered By: Brandon Rojas on 08-21-2024 Sodium [Moles/Vol] 136 mmol/L 133-145 [facility] Random urine microalbumin me asurementOrdered By: Victor M Rojas on 08-01-2024 Urine Random Microalbumin 583.0 mg/L NO RANGE EST. [facility] Urine albumin/creatinine rat io for detection of microalbuminuriaOrdered By: Victor M Rojas on 08-01-2024 Urine Microalbumin/Creatinine Ratio 1371.8 mg/g CRE High <30 [facility] Urine creatinine measurement (mass/volume)Ordered By: Victor M Rojas on 08-01-2024 Creatinine (U) [Mass/Vol] 42.50 mg/dL NO RANGE EST. [facility] Blood urea nitrogen (BUN)/cr eatinine ratioOrdered By: Victor M Rojas on 07-24-2024 Urea nitrogen/Creatinine [Mass ratio] 20.5 mg/mg High 10-20 [facility] Carbon dioxide measurementOr dered By: Victor M Rojas on 07-24-2024 CO2 [Moles/Vol] 21.0 mmol/L 21.0-32.0 [facility] Chloride measurementOrdered By: Victor M Rojas on 07-24-2024 Chloride [Moles/Vol] 106 mmol/L 98-107 [facility] Estimated glomerular filtrat ion rate (GFR) AmericanOrdered By: Victor M Rojas on 07-24-2024 Estimated GFR (MDRD) Amer 44 mL/min Low >60 [facility] Comment on above: GFR Calc Glomerular filtration rate ( GFR) estimationOrdered By: Victor M Rojas on 07-24-2024 Estimated GFR (MDRD) Non-Af Amer 36 mL/min Low >60 [facility] Comment on above: Non- GFR Calc GFR/1.73 sq M.predicted among non-blacks MDRD (S/P/Bld) [Vol rate/Area] 36 mL/min/{1.73_m2} Low >60 [facility] Comment on above: Non- GFR Calc Glucose measurementOrdered B y: Victor M Rojas on 07-24-2024 Glucose [Mass/Vol] 230 mg/dL High 74-106 [facility] Comment on above: Glucose result great er than or equal to 200 mg/dLsuggests DIABETES MELLITUS per A.D.A. criteria. Hemoglobin A1c percentageOrd ered By: Victor M Rojas on 07-24-2024 HbA1c (Bld) [Mass fraction] 8.3 % High 3.8-5.6 [facility] Comment on above: Normal < 5.7 % Predi abetic 5.7 - 6.4 % Diabetic >or= 6.5 % Please note range changes. Phosphorus measurementOrdere d By: Victor M Rojas on 07-24-2024 Phosphorus Level 3.4 mg/dL 2.5-4.9 [facility] Potassium measurementOrdered By: Victor M Rojas on 07-24-2024 Potassium [Moles/Vol] 4.3 mmol/L 3.5-5.1 [facility] Serum or plasma albumin akash urement (mass/volume)Ordered By: Victor M Rojas on 07-24-2024 Albumin [Mass/Vol] 2.7 g/dL Low 3.2-5.0 [facility] Serum or plasma calcium akash urement (mass/volume)Ordered By: Victor M Rojas on 07-24-2024 Calcium [Mass/Vol] 8.2 mg/dL Low 8.5-10.1 [facility] Serum or plasma creatinine m easurement (mass/volume)Ordered By: Victor M Rojas on 07-24-2024 Creatinine [Mass/Vol] 1.90 mg/dL High 0.70-1.30 [facility] Comment on above: The validity of the calculated GFR & GFRAA in patients over 70 years has not been determined. Clinical correlation is essential. Serum or plasma urea nitroge n measurement (mass/volume)Ordered By: Victor M Rojas on 07-24-2024 Urea nitrogen [Mass/Vol] 39 mg/dL High 7-18 [facility] Sodium levelOrdered By: Brandon Rojas on 07-24-2024 Sodium [Moles/Vol] 135 mmol/L Low 136-[address] [facility] [address] UROGRAM WO/W IVCONon 06-19 CT UROGRAM WO/W IVCON * * *Final Report* * * DATE OF EXAM: Jun 28 2024 2:26PM [facility] 0560 - CT UROGRAM WO/W IVCON / [...] be communicated with the ordering provider via [employer] staff message or phone message by [employer] within 2 business days of report finalization. --END OF FINDING-- Cigarette Carton Sealer: ONEL Transcribe Date/Time: Jul 01 2024 9:40P Dictated by : JARAD ARCOS MD This examination was interpreted and the report reviewed and electronically signed by: JARAD ARCOS MD on Jul 01 2024 9:53PM EST [id number] [id number] Invalid Interpretation Code [facility] Estimated glomerular filtrat ion rate (GFR) AmericanOrdered By: Victor M Rojas on 06-27-2024 Estimated GFR (MDRD) Amer 37 mL/min Low >60 [facility] Comment on above: GFR Calc Glomerular filtration rate ( GFR) estimationOrdered By: Victor M Rojas on 06-27-2024 Estimated GFR (MDRD) Non-Af Amer 31 mL/min Low >60 [facility] Comment on above: Non- GFR Calc Serum or plasma creatinine m easurement (mass/volume)Ordered By: Victor M Rojas on 06-27-2024 Creatinine [Mass/Vol] 2.20 mg/dL High 0.70-1.30 [facility] Comment on above: The validity of the calculated GFR & GFRAA in patients over 70 years has not been determined. Clinical correlation is essential. Beau 06-21-2024 JONAS Telephone (UROLWS) ELIZABETH MODI ([id number]) 1940 M [facility] Date Time Provider Department 06/21/24 NIKOLAI CONNOR During your visit today, we recorded the following information about you: Anaid Payne MA 06/21/2024 4:28 PM Signed ----- Message from Nikolai Connor PA-C sent at 06/21/2024 3:54 PM EST ----- No infection in the urine No cancer cells in urine, please continue the rest of the testing Nikolai Connor MPAS, MS, Susan Lopez MA 06/25/2024 8:47 AM Signed LM for [facility] to contact office to inform. GAYATRI Evans Kimberly, LPN 07/05/2024 4:27 PM Signed Called [facility]. No answer- left message to call clinic. MARV Morocho Kimberly, LPN 07/09/2024 3:50 PM Signed Called [facility]. No answer- left message to call clinic. [...] MULTIVITAMIN ORAL) Take by mouth. - vit C,A-Mh-mffob-lutein-ze axan (PRESERVISION AREDS-2) 250-90-40-1 mg Take 1 [...] Status:Closed by LUKE TAYLOR on 07/09/24 Normal [facility] Absolute neutrophil countOrd ered By: Victor M Rojas on 06-20-2024 Neutrophils (Bld) [#/Vol] 5.5 10*3/uL 2.0-7.7 [facility] Albumin to globulin ratioOrd ered By: Victor M Rojas on 06-20-2024 Albumin/Globulin [Mass ratio] 0.7 {ratio} Low 0.9-2.4 [facility] Basophil percentageOrdered B y: Victor M Rojas on 06-20-2024 Basophils/100 WBC (Bld) 0.3 % 0-1 [facility] Bilirubin, totalOrdered By: Victor M Rojas on 06-20-2024 Bilirubin [Mass/Vol] 0.70 mg/dL 0.20-1.00 [facility] Comment on above: For patients on eltr ombopag therapy, use of Dimension Davidson TBIL is not recommended. Blood urea nitrogen (BUN)/cr eatinine ratioOrdered By: Victor M Rojas on 06-20-2024 Urea nitrogen/Creatinine [Mass ratio] 19.0 mg/mg 10-20 [facility] Carbon dioxide measurementOr dered By: Victor M Rojas on 06-20-2024 CO2 [Moles/Vol] 24.0 mmol/L 21.0-32.0 [facility] Chloride measurementOrdered By: Victor M Rojas on 06-20-2024 Chloride [Moles/Vol] 104 mmol/L 98-107 [facility] Eosinophil percentageOrdered By: Victor M Rojas on 06-20-2024 Eosinophils/100 WBC (Bld) 2.5 % 0-5 [facility] Erythrocyte distribution wid th (RBC) [Ratio]Ordered By: Victor M Rojas on 06-20-2024 Erythrocyte distribution width (RBC) [Entitic vol] 47.8 fL High 35.1-43.9 [facility] Erythrocyte distribution wid th ratioOrdered By: Victor M Rojas on 06-20-2024 Erythrocyte distribution width (RBC) [Ratio] 14.7 % High 11.6-14.6 [facility] Estimated glomerular filtrat ion rate (GFR) AmericanOrdered By: Victor M Rojas on 06-20-2024 Estimated GFR (MDRD) Amer 51 mL/min Low >60 [facility] Comment on above: GFR Calc Glomerular filtration rate ( GFR) estimationOrdered By: Victor M Rojas on 06-20-2024 Estimated GFR (MDRD) Non-Af Amer 42 mL/min Low >60 [facility] Comment on above: Non- GFR Calc Glucose measurementOrdered B y: Victor M Rojas on 06-20-2024 Glucose [Mass/Vol] 190 mg/dL High 74-106 [facility] Comment on above: Fasting Glucose resu lt greater than or equal to 126 mg/dL suggests DIABETES MELLITUS per A.D.A. criteria. Hematocrit Auto (Bld) [Volum e fraction]Ordered By: Victor M Rojas on 06-20-2024 Hematocrit (Bld) [Volume fraction] 42.8 % 40-54 [facility] Hemoglobin A1c percentageOrd ered By: Victor M Rojas on 06-20-2024 HbA1c (Bld) [Mass fraction] 8.3 % High 3.8-5.6 [facility] Comment on above: Normal < 5.7 % Predi abetic 5.7 - 6.4 % Diabetic >or= 6.5 % Please note range changes. Hemoglobin measurementOrdere d By: Victor M Rojas on 06-20-2024 Hemoglobin (Bld) [Mass/Vol] 13.6 g/dL 13.0-16.5 [facility] High density lipoprotein (HD L) measurementOrdered By: Victor M Rojas on 06-20-2024 Cholesterol in HDL [Mass/Vol] 29 mg/dL Low >40 [facility] Comment on above: The drugs N-Acetylcy steine and Metamizole may falsely depress this assay. Reference Range HDL <40 mg/dL Low HDL Cholesterol HDL >or= 60 mg/dL High HDL Cholesterol Immature granulocytes/100 WB C Auto (Bld)Ordered By: Victor M Rojas on 06-20-2024 Immature granulocytes/100 WBC (Bld) 1.900 % High 0.0-0.9 [facility] Comment on above: IG% - Immature Granu locytes (promyelocytes, myelocytes and metamyelocytes) > 1% indicates that a LEFT SHIFT is Present. Laboratory - Chemistry and C hemistry - challengeOrdered By: Victor M Rojas on 06-20-2024 AST [Catalytic activity/Vol] 37 U/L 15-37 [facility] Comment on above: Slight Hemolysis, Re sult may be falsely increased. Low density lipoprotein (LDL ) cholesterol measurementOrdered By: Victor M Rojas on 06-20-2024 Cholesterol in LDL [Mass/Vol] 46 mg/dL 0-130 [facility] Lymphocytes Auto (Unsp spec) [#/Vol]Ordered By: Victor M Rojas on 06-20-2024 Lymphocytes (Bld) [#/Vol] 1.97 10*3/uL 0.83-4.5 1 [facility] Lymphocytes/100 WBC Auto (Un sp spec)Ordered By: Victor M Rojas on 06-20-2024 Lymphocytes/100 WBC (Bld) 21.8 % 19-41 [facility] MCV (mean corpuscular volume ) determinationOrdered By: Victor M Rojas on 06-20-2024 MCV (RBC) [Entitic vol] 89.9 fL 80-94 [facility] Mean corpuscular hemoglobin (MCH) determinationOrdered By: Victor M Rojas on 06-20-2024 MCH (RBC) [Entitic mass] 28.6 pg 27.0-32.0 [facility] Mean corpuscular hemoglobin concentration (MCHC) determinationOrdered By: Victor M Rojas on 06-20-2024 MCHC (RBC) [Mass/Vol] 31.8 g/dL Low 32-36 [facility] Mean platelet volume determi nationOrdered By: Victor M Rojas on 06-20-2024 Platelet mean volume (Bld) [Entitic vol] 11.9 fL 6.2-12.0 [facility] Monocyte percentageOrdered B y: Victor M Rojas on 06-20-2024 Monocytes/100 WBC (Bld) 13.0 % High 0-10 [facility] Neutrophil percentageOrdered By: Victor M Rojas on 06-20-2024 Neutrophils/100 WBC (Bld) 60.5 % 47-70 [facility] Nucleated red blood cell per centageOrdered By: Victor M Rojas on 06-20-2024 Nucleated RBC/100 WBC (Bld) [Ratio] 0 % 0-5 [facility] Platelet countOrdered By: Stefan Rojas on 06-20-2024 Platelets (Bld) [#/Vol] 239 10*3/uL 150-450 [facility] Potassium measurementOrdered By: Victor M Rojas on 06-20-2024 Potassium [Moles/Vol] 4.2 mmol/L 3.5-5.1 [facility] Comment on above: Slight Hemolysis, Re sult may be falsely increased. RBC Auto (Bld) [#/Vol]Ordere d By: Victor M Rojas on 06-20-2024 RBC (Bld) [#/Vol] 4.76 10*6/uL 4.6-6.2 [facility] Serum anion gap measurementO rdered By: Victor M Rojas on 06-20-2024 Anion gap [Moles/Vol] 8 mmol/L 5-15 [facility] Serum globulin measurementOr dered By: Victor M Rojas on 06-20-2024 Globulin (S) [Mass/Vol] 3.9 g/dL 2.2-4.2 [facility] Serum or plasma alanine mojica otransferase (ALT) measurementOrdered By: Victor M Rojas on 06-20-2024 ALT [Catalytic activity/Vol] 45 U/L 16-61 [facility] Serum or plasma albumin akash urement (mass/volume)Ordered By: Victor M Rojas on 06-20-2024 Albumin [Mass/Vol] 2.8 g/dL Low 3.2-5.0 [facility] Serum or plasma alkaline marielos sphatase measurementOrdered By: Victor M Rojas on 06-20-2024 ALP [Catalytic activity/Vol] 123 U/L High 45-117 [facility] Serum or plasma calcium akash urement (mass/volume)Ordered By: Victor M Rojas on 06-20-2024 Calcium [Mass/Vol] 8.4 mg/dL Low 8.5-10.1 [facility] Serum or plasma cholesterol measurement (mass/volume)Ordered By: Victor M Rojas on 06-20-2024 Cholesterol [Mass/Vol] 104 mg/dL <200 [facility] Comment on above: <200 mg/dL Desirable 200-240 mg/dL Borderline >240 mg/dL High Risk Serum or plasma creatinine m easurement (mass/volume)Ordered By: Victor M Rojas on 06-20-2024 Creatinine [Mass/Vol] 1.68 mg/dL High 0.70-1.30 [facility] Comment on above: The validity of the calculated GFR & GFRAA in patients over 70 years has not been determined. Clinical correlation is essential. Serum or plasma urea nitroge n measurement (mass/volume)Ordered By: Milyprice Granadosluiskaran on 06-20-2024 Urea nitrogen [Mass/Vol] 32 mg/dL High 7-18 [facility] Sodium levelOrdered By: Brandon wynn Darwinluiskaran on 06-20-2024 Sodium [Moles/Vol] 136 mmol/L 136-145 [facility] TSH QnOrdered By: Victor M Darwinkelly on 06-20-2024 Thyroid Stimulating Hormone (TSH) 2.290 uIU/mL 0.358-3.740 [facility] Total proteinOrdered By: Prosper phelan Darwinluiskaran on 06-20-2024 Protein [Mass/Vol] 6.7 g/dL 6.4-8.2 [facility] Triglycerides measurementOrd ered By: Milyprice Granadosluiskaran on 06-20-2024 Triglyceride [Mass/Vol] 145 mg/dL <199 [facility] Comment on above: The drugs N-Acetylcy steine and Metamizole may falsely depress this assay.Serum Triglycerides Reference Interval Normal <150 mg/dL Borderline high 150 - 199 mg/dL High 200 - 499 mg/dL Very High > or = 500 mg/dL Very low density lipoprotein (VLDL) cholesterol measurementOrdered By: Milyprice Granadosluiskaran on 06-20-2024 VLDL Cholesterol 29 mg/dL 5-40 [facility] White blood cell (WBC) count Ordered By: Victor M Darwinluiskaran on 06-20-2024 WBC (Bld) [#/Vol] 9.1 10*3/uL 4.4-11.0 [facility] Bacteria Ur Culton 4 Bacteria identified Cx [...] technique or straight catheterization for???urine???collecti on. Normal [facility] Comment on above: Performed By: #### 6 30-4 #### [facility] CLIA [id number] [address] [place] [address] [place] CNOVon 06-18-2024 CNOV Office Visit (UROLWS ) ELIZABETH MODI ([id number]) 1940 M T Date Time Provider Department 06/18/24 1:00 PM NIKOLAI CONNOR UROLRAFIQ During your visit today, we recorded the following information about you: Nikolai Connor PA-C 06/18/2024 4:05 PM Signed COUNT INCLUDES THE [facility] NEW PATIENT CLINIC NOTE SERVICE DATE: June 18, 2024 NAME: Elizabeth Modi CHIEF COMPLAINT: Hematuria HISTORY OF PRESENT ILLNESS: Elizabeth Modi is a 83 year old male an new patient here for The patient reports Hematuria with a few episodes of hematuria Will get Urine sample today for culture and cytology Schedule Cystoscopy at [place] And CT Urogram at [place] We discussed the need for full hematuria [...] (ADULTS MULTIVITAMIN ORAL) Take by mouth. vit C,M-Rf-vwsnn-lutein-ze axan (PRESERVISION AREDS-2) 250-90-40-1 mg Take 1 [...] DM (diab (more content not included)... Normal [facility] CREATININE BLDOrdered By: Amelia August on 06-18-2024 Creatinine [Mass/Vol] 1.37 mg/dL High 0.73 - 1.22 mg/dL [facility] GFR/1.73 sq M.predicted among non-blacks MDRD (S/P/Bld) [Vol rate/Area] 52 mL/min/{1.73_m2} Low - PINF [facility] Comment on above: Estimated Glomerular [...] Interpretation and review of laboratory results Abnormal [facility] CREATININE BLDon 06-18-2024 Creatinine [Mass/Vol] 1.37 mg/dL High 0.73-1.22 [facility] Comment on above: Order Comment: Marty quinonez Type: BLOOD SPECIMEN Ordering Facility: [facility] Address: [address] [place] [address] Performed By: #### C RET1 #### [facility] [id number] [address] [place] [address] OF [facility] Creatinine and Glomerular filtration rate.predicted panel (S/P/Bld) 52 mL/min/1.73m??? Low >=60 [facility] Comment on above: Order Comment: Marty quinonez Type: BLOOD SPECIMEN Ordering Facility: [facility] Address: [address] [place] [address] Result Comment: Alma Delia mated Glomerular Filtration [...] GFR. Performed By: #### C RET1 #### [facility] [id number] [address] [place] [address] [place] CYTOLOGY NON-GYNon CASE REPORT Normal [facility] Comment on above: Order Comment: Marty quinonez Type: URINE SPECIMEN Ordering Facility: [facility] Address: [address] [place] [address] Result Comment: [facility] Cytology Report Case: [id number] Authorizing Provider: Nikolai Connor PA-C Collected: 06/18/2024 01:58 PM Ordering Location: Urology Received: 06/18/2024 02:43 PM Pathologist: Eric Sutherland MD Specimen: Urine, Cystoscopic Performed By: #### C YTONON #### [facility] CLIA [id number] [address] [place] [address] OF [facility] CLINICAL HISTORY hematuria Normal [facility] Comment on above: Order Comment: Speci men Type: URINE SPECIMEN Ordering Facility: [facility] Address: [address] [place] [address] Performed By: #### C YTONON #### [facility] CLIA [id number] [address] [place] [address] OF [place] FINAL DIAGNOSIS Normal [facility] Comment on above: Order Comment: Speci men Type: URINE SPECIMEN Ordering Facility: [facility] Address: [address] [place] [address] Result Comment: A - Urine, Cystoscopic Negative for high-grade urothelial carcinoma. Acute and chronic inflammation. Blood. Performed By: #### C YTONON #### [facility] CLIA [id number] [address] [place] [address] [place] FINAL PERFORMING LAB Normal [facility] Comment on above: Order Comment: Speci men Type: URINE SPECIMEN Ordering Facility: [facility] Address: [address] [place] [address] Result Comment: Tech nical component, electrophysiology tech screening performed at [facility], [address] [place] [address] CLIA# [id number] Diagnostic interpretation performed at [facility], [address] [place], [place] [address] CLIA# [id number] Sample Driller: Kemal Campos M.D. Performed By: #### C YTONON #### [facility] CLIA [id number] [address] [place] [address] [place] GROSS DESCRIPTION Normal [facility] Comment on above: Order Comment: Speci men Type: URINE SPECIMEN Ordering Facility: [facility] Address: [address] [place] [address] Result Comment: A. Alvarez godineze, Cystoscopic 8 cc cloudy red fluid . ThinPrep prepared. Performed By: #### C YTONON #### [facility] CLIA [id number] [address] [place] [address] [place] Bilirubin Test strip Ql (U)O rdered By: Victor M Rojas on 06-17-2024 Bilirubin Ql (U) Negative Negative [facility] Glucose Ql (U)Ordered By: Stefan Rojas on 06-17-2024 Glucose (U) [Mass/Vol] 1000 mg/dL High Normal [facility] Ketones Test strip Ql (U)Ord ered By: Victor M Rojas on 06-17-2024 Ketones Ql (U) Negative Negative [facility] Nitrite Test strip Ql (U)Ord ered By: Victor M Rojas on 06-17-2024 Nitrite Ql (U) Negative Negative [facility] Protein Test strip Ql (U)Ord ered By: Victor M Rojas on 06-17-2024 Protein Ql (U) 500 mg/dl High Negative [facility] Urine blood detectionOrdered By: Victor M Rojas on 06-17-2024 Urine Occult Blood 250 /ul High Negative [facility] Urine clarityOrdered By: Prosper Rojas on 06-17-2024 Clarity (U) Cloudy Clear [facility] Urine color determinationOrd ered By: Victor M Rojas on 06-17-2024 Color (U) Red Yellow [facility] Urine cultureOrdered By: Prosper Rojas on 06-17-2024 Bacteria identified Cx Nom (U) Culture exhibits no growth. [facility] Urine leukocyte esterase det ection by dipstickOrdered By: Stefanvianeyleonaprice Bob on 06-17-2024 Leukocyte esterase Test strip Ql (U) 25 /ul High Negative [facility] Urine pHOrdered By: Tg Rojas on 06-17-2024 pH (U) 5.0 [pH] 5.0 - 8.0 [facility] Urine specific gravity measu rementOrdered By: Stefanvianeytianna Rojas on 06-17-2024 Specific gravity (U) [Rel density] 1.015 1.002-1.030 [facility] Urobilinogen Ql (U)Ordered B y: Victor M Rojas on 06-17-2024 Urine Urobilinogen Normal mg/dl Normal [facility] Gastroenterology Visit Repor ton 06-06-2024 Gastroenterology Visit Report [facility] [address] [place] [address] OFFICE VISIT Date of Service: 06/06/24 MR#: [id number] Acct: [id number] Name: ELIZABETH MODI Rep #: [id number] : 1940 Provider: GILL Jefferson Age/Sex: 83/M Location: [facility] Status: Signed Intake Vital Signs [...] stools, N/V/C and abdominal pain. 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 alcohol intake: current alcohol intake frequency: a few times a month details: Prior heavier, now occasional. substance use type: does not use HPI HPI Chief Complaint: f/u. Details: ELIZABETH MODI, is a 83 M who presents to the office today for f/u. *[facility] hospitalization 12.14.22-12.17.22 for management of choledocholithiasis [...] MHD dila (more content not included)... Normal [facility] BCIDon 08-02-2023 Acinetobacter landon-baumanii complex Not detected Normal Not Detected [facility] ([place]) Comment on above: Performed By: #### B MARANDA #### [place] [address] Bacteroides fragilis Not detected Normal Not Detected [facility] ([place] Comment on above: Performed By: #### B MARANDA #### [address] [address] BCID Comment See Comment Normal [facility] ([place]) Comment on above: Result Comment: [...] follow. Performed By: #### B MARANDA #### [address] [address] Megan albicans Not detected Normal Not Detected [facility] ([place] Comment on above: Performed By: #### B MARANDA #### [address] [address] Megan auris Not detected Normal Not Detected [facility] ([place] Comment on above: Performed By: #### B MARANDA #### [address] [address] Megan glabrata Not detected Normal Not Detected [facility] ([place] Comment on above: Performed By: #### B MARANDA #### [address] [address] Megan krusei Not detected Normal Not Detected [facility] ([place] Comment on above: Performed By: #### B MARANDA #### [address] [address] Megan parapsilosis Not detected Normal Not Detected [facility] ([place] Comment on above: Performed By: #### B MARANDA #### [facility] [address] [place] [address] Megan tropicalis Not detected Normal Not Detected [facility] ([place] Comment on above: Performed By: #### B MARANDA #### [facility] [address] [place], [place] [id number] Cryptococcus neoformans-gattii Not detected Normal Not Detected [facility] ([place] Comment on above: Performed By: #### B MARANDA #### [place] [address] CTX-M (ESBL) Not Applicable Normal Not Detected [facility] ([place] Comment on above: Performed By: #### B MARANDA #### [place] [address] E. Coli Not detected Normal Not Detected [facility] ([place] Comment on above: Performed By: #### B MARANDA #### [place] [address] Enterobacter cloacae Complex Not detected Normal Not Detected [facility] ([place] Comment on above: Performed By: #### B MARANDA #### [place] [address] Enterobacterales Not detected Normal Not Detected [facility] ([place] Comment on above: Performed By: #### B MARANDA #### [place] [address] Enterococcus faecalis Not detected Normal Not Detected [facility] ([place] Comment on above: Performed By: #### B MARANDA #### [place] [address] Enterococcus faecium Not detected Normal Not Detected [facility] ([place] Comment on above: Performed By: #### B MARANDA #### [place] [address] Haemophilus influenzae Not detected Normal Not Detected [facility] ([place] Comment on above: Performed By: #### B MARANDA #### [place] [address] IMP (Carbapenemase) Not Applicable Normal Not Detected [facility] ([place] Comment on above: Performed By: #### B MARANDA #### [place] [address] Klebsiella aerogenes Not detected Normal Not Detected [facility] ([place]) Comment on above: Performed By: #### B MARANDA #### [place] [address] Klebsiella oxytoca Not detected Normal Not Detected [facility] ([place] Comment on above: Performed By: #### B MARANDA #### [place] [address] Klebsiella pneumoniae group Not detected Normal Not Detected [facility] ([place] Comment on above: Performed By: #### B MARANDA #### [place] [address] KPC (Carbapenemase) Not Applicable Normal Not Detected [facility] ([place] Comment on above: Performed By: #### B MARANDA #### [place] [address] Listeria monocytogenes Not detected Normal Not Detected [facility] ([place] Comment on above: Performed By: #### B MARANDA #### [place] [address] MCR-1 (Colistin Resistance) Not Applicable Normal Not Detected [facility] ([place] Comment on above: Performed By: #### B MARANDA #### [place] [address] Mec A/C Detected Abnormal Not Detected [facility] ([place] Comment on above: Performed By: #### B MARANDA #### [place] [address] Mec A/C-MREJ (MRSA) Not Applicable Normal Not Detected [facility] ([place] Comment on above: Performed By: #### B MARANDA #### [place] [address] NDM (Carbapenemase) Not Applicable Normal Not Detected [facility] ([place] Comment on above: Performed By: #### B MARANDA #### [place] [address] Neisseria meningitidis (Encapsalated) Not detected Normal Not Detected [facility] ([place] Comment on above: Performed By: #### B MARANDA #### [place] [address] OXA-48 like (Carbapenemase) Not Applicable Normal Not Detected [facility] ([place] Comment on above: Performed By: #### B MARANDA #### [facility] [address] [place] [address] Proteus Not detected Normal Not Detected [facility] ([place] Comment on above: Performed By: #### B MARANDA #### [facility] [address] [place] [address] Pseudomonas aeruginosa Not detected Normal Not Detected [facility] ([place] Comment on above: Performed By: #### B MARANDA #### [place] [id number] S. agalactiae Org specific cx Ql (Vag fld) Not detected Normal Not Detected [facility] ([place] Comment on above: Performed By: #### B MARANDA #### [place] [address] Salmonella species Not detected Normal Not Detected [facility] ([place] Comment on above: Performed By: #### B MARANDA #### [place] [address] Serratia marcescens Not detected Normal Not Detected [facility] ([place] Comment on above: Performed By: #### B MARANDA #### [place] [address] Staphylococcus Detected Abnormal Not Detected [facility] ([place] Comment on above: Performed By: #### B MARANDA #### [place] [address] Staphylococcus aureus Not detected Normal Not Detected [facility] ([place] Comment on above: Result Comment: If S taphylococcus aureus is "Detected", an Infectious Disease physician consult is required on identification. Performed By: #### B MARANDA #### [place] [id number] Staphylococcus epidermidis Detected Abnormal Not Detected [facility] ([place] Comment on above: Performed By: #### B MARANDA #### [address] [address] Staphylococcus lugdunensis Not detected Normal Not Detected [facility] ([place] Comment on above: Performed By: #### B MARANDA #### [facility] [address] [place] [address] Stenotrophomonas maltophilia Not detected Normal Not Detected [facility] ([place] Comment on above: Performed By: #### B MARANDA #### [facility] [address] [place] [address] Streptococcus Not detected Normal Not Detected [facility] ([place] Comment on above: Performed By: #### B MARANDA #### [facility] [address] [place] [address] Streptococcus pneumoniae Not detected Normal Not Detected [facility] ([place] Comment on above: Performed By: #### B MARANDA #### [place] [address] Streptococcus pyogenes Not detected Normal Not Detected [facility] ([place] Comment on above: Performed By: #### B MARANDA #### [place] [address] Van A/B Not Applicable Normal Not Detected [facility] ([place] Comment on above: Performed By: #### B MARANDA #### [place] [address] VIM (Carbapenemase) Not Applicable Normal Not Detected [facility] ([place] Comment on above: Performed By: #### B MARANDA #### [place] [address] Absolute lymphocyte countOrd ered By: Dwayne Palumbo on 02-08-2023 Lymphocytes Auto (Unsp spec) [#/Vol] 1.91 10*3/uL 0.83-4.51 [facility] Basophil percentageOrdered B y: Dwayne Palumbo on 02-08-2023 Basophils/100 WBC (Bld) 0.2 % 0-1 [facility] Bilirubin [Mass/Vol] 0.90 mg/dL 0.20-1.00 [facility] Comment on above: For patients on eltr ombopag therapy, use of Dimension Davidson TBIL is not recommended. Chloride [Moles/Vol] 105 mmol/L 98-107 [facility] Eosinophils/100 WBC (Bld) 2.7 % 0-5 [facility] Glucose [Mass/Vol] 191 mg/dL 74-106 [facility] Comment on above: Fasting Glucose resu lt greater than or equal to 126 mg/dL suggests DIABETES MELLITUS per A.D.A. criteria. Neutrophils (Bld) [#/Vol] 7.0 10*3/uL 2.0-7.7 [facility] Neutrophils/100 WBC (Bld) 66.4 % 47-70 [facility] Potassium [Moles/Vol] 4.1 mmol/L 3.5-5.1 [facility] Protein [Mass/Vol] 8.0 g/dL 6.4-8.2 [facility] Sodium [Moles/Vol] 137 mmol/L 136-145 [facility] WBC (Bld) [#/Vol] 10.5 10*3/uL 4.4-11.0 [facility] Blood erythrocytes count (nu mber/volume)Ordered By: Dwayne Palumbo on 02-08-2023 RBC (Bld) [#/Vol] 4.64 10*6/uL 4.6-6.2 [facility] Blood hemoglobin measurement (mass/volume)Ordered By: Dwayne Palumbo on 02-08-2023 Hemoglobin (Bld) [Mass/Vol] 12.7 g/dL 13.0-16.5 [facility] Blood lymphocytes/100 leukoc ytesOrdered By: Dwayne Palumbo on 02-08-2023 Lymphocytes/100 WBC (Bld) 18.2 % 19-41 [facility] Blood monocytes/100 leukocyt esOrdered By: Dwayne Palumbo on 02-08-2023 Monocytes/100 WBC (Bld) 11.2 % 0-10 [facility] Blood platelet mean volumeOr dered By: Dwayne Palumbo on 02-08-2023 Platelet mean volume (Bld) [Entitic vol] 10.7 fL 6.2-12.0 [facility] Determination of erythrocyte mean corpuscular volume (MCV)Ordered By: Dwayne Palumbo on 02-08-2023 MCV (RBC) [Entitic vol] 86.6 fL 80-94 [facility] Hematocrit Auto (Bld) [Volum e fraction]Ordered By: Dwayne Palumbo on 02-08-2023 Hematocrit (Bld) [Volume fraction] 40.2 % 40-54 [facility] Laboratory - Chemistry and C hemistry - challengeOrdered By: Dwayne Palumbo on 02-08-2023 ALP [Catalytic activity/Vol] 122 U/L 45-117 [facility] ALT [Catalytic activity/Vol] 42 U/L 16-61 [facility] CO2 [Moles/Vol] 23.0 mmol/L 21.0-32.0 [facility] Globulin (S) [Mass/Vol] 4.6 g/dL 2.2-4.2 [facility] Urea nitrogen/Creatinine [Mass ratio] 25.7 mg/mg 10-20 [facility] Laboratory - Hematology and Cell countsOrdered By: Dwayne Palumbo on 02-08-2023 Erythrocyte distribution width (RBC) [Entitic vol] 50.7 fL 35.1-43.9 [facility] Erythrocyte distribution width (RBC) [Ratio] 16.1 % 11.6-14.6 [facility] Immature granulocytes/100 WBC (Bld) 1.300 % 0.0-0.9 [facility] Comment on above: IG% - Immature Granu locytes (promyelocytes, myelocytes and metamyelocytes) > 1% indicates that a LEFT SHIFT is Present. MCH (RBC) [Entitic mass] 27.4 pg 27.0-32.0 [facility] Nucleated RBC/100 WBC (Bld) [Ratio] 0 % 0-5 [facility] MCHC Auto (RBC) [Mass/Vol]Or dered By: Dwayne Palumbo on 02-08-2023 MCHC (RBC) [Mass/Vol] 31.6 g/dL 32-36 [facility] No Panel InformationOrdered By: Dwayne Palumbo on 02-08-2023 Estimated GFR (MDRD) Amer 46 mL/min >60 [facility] Comment on above: GFR Calc Estimated GFR (MDRD) Non-Af Amer 38 mL/min >60 [facility] Comment on above: Non- GFR Calc Platelets bldOrdered By: Edilson Palumbo on 02-08-2023 Platelets (Bld) [#/Vol] 275 10*3/uL 150-450 [facility] Serum or plasma albumin akash urement (mass/volume)Ordered By: Dwayne Palumbo on 02-08-2023 Albumin [Mass/Vol] 3.4 g/dL 3.2-5.0 [facility] Serum or plasma albumin/glob ulin mass ratioOrdered By: Dwayne Palumbo on 02-08-2023 Albumin/Globulin [Mass ratio] 0.7 {ratio} 0.9-2.4 [facility] Serum or plasma calcium akash urement (mass/volume)Ordered By: Dwayne Palumbo on 02-08-2023 Calcium [Mass/Vol] 9.4 mg/dL 8.5-10.1 [facility] Serum or plasma creatinine m easurement (mass/volume)Ordered By: Dwayne Palumbo on 02-08-2023 Creatinine [Mass/Vol] 1.83 mg/dL 0.70-1.30 [facility] Comment on above: The validity of the calculated GFR & GFRAA in patients over 70 years has not been determined. Clinical correlation is essential. Serum or plasma urea nitroge n measurement (mass/volume)Ordered By: Dwayne Palumbo on 02-08-2023 Urea nitrogen [Mass/Vol] 47 mg/dL 7-18 [facility] Thin prep Papanicolaou smear with manual screeningOrdered By: Dwayne Palumbo on 02-08-2023 Thin prep Papanicolaou smear with manual screening 30 U/L 15-37 [facility] Thin prep Papanicolaou smear with manual screening 9 5-15 [facility] Absolute lymphocyte countOrd ered By: Jesse Haywood on 12-17-2022 Lymphocytes Auto (Unsp spec) [#/Vol] 0.86 10*3/uL 0.83-4.51 [facility] Basophil percentageOrdered B y: Jesse Haywood on 12-17-2022 Basophils/100 WBC (Bld) 0.1 % 0-1 [facility] Chloride [Moles/Vol] 113 mmol/L 98-107 [facility] Eosinophils/100 WBC (Bld) 0.2 % 0-5 [facility] Glucose [Mass/Vol] 178 mg/dL 74-106 [facility] Comment on above: Fasting Glucose resu lt greater than or equal to 126 mg/dL suggests DIABETES MELLITUS per A.D.A. criteria. Neutrophils (Bld) [#/Vol] 8.2 10*3/uL 2.0-7.7 [facility] Neutrophils/100 WBC (Bld) 80.2 % 47-70 [facility] Potassium [Moles/Vol] 3.8 mmol/L 3.5-5.1 [facility] Sodium [Moles/Vol] 141 mmol/L 136-145 [facility] WBC (Bld) [#/Vol] 10.2 10*3/uL 4.4-11.0 [facility] Blood erythrocytes count (nu mber/volume)Ordered By: Jesse Haywood on 12-17-2022 RBC (Bld) [#/Vol] 3.91 10*6/uL 4.6-6.2 [facility] Blood hemoglobin measurement (mass/volume)Ordered By: Jesse Haywood on 12-17-2022 Hemoglobin (Bld) [Mass/Vol] 11.1 g/dL 13.0-16.5 [facility] Blood lymphocytes/100 leukoc ytesOrdered By: Jesse Haywood on 12-17-2022 Lymphocytes/100 WBC (Bld) 8.4 % 19-41 [facility] Blood monocytes/100 leukocyt esOrdered By: Jesse Haywood on 12-17-2022 Monocytes/100 WBC (Bld) 9.2 % 0-10 [facility] Blood platelet mean volumeOr dered By: Jesse Haywood on 12-17-2022 Platelet mean volume (Bld) [Entitic vol] 11.4 fL 6.2-12.0 [facility] Determination of erythrocyte mean corpuscular volume (MCV)Ordered By: Jesse Haywood on 12-17-2022 MCV (RBC) [Entitic vol] 87.7 fL 80-94 [facility] Glucose Glucometer (BldC) [M ass/Vol]Ordered By: Jesse Haywood on 12-17-2022 Glucose [Mass/Vol] 216 mg/dL 74-106 [facility] Comment on above: MANAGEMENT OF PATIEN T CARE PER NURSING PROTOCOL Hematocrit Auto (Bld) [Volum e fraction]Ordered By: Jesse Haywood on 12-17-2022 Hematocrit (Bld) [Volume fraction] 34.3 % 40-54 [facility] Laboratory - Chemistry and C hemistry - challengeOrdered By: Jesse Haywood on 12-17-2022 CO2 [Moles/Vol] 21.0 mmol/L 21.0-32.0 [facility] Urea nitrogen/Creatinine [Mass ratio] 30.1 mg/mg 10-20 [facility] Laboratory - Hematology and Cell countsOrdered By: Jesse Haywood on 12-17-2022 Erythrocyte distribution width (RBC) [Entitic vol] 47.4 fL 35.1-43.9 [facility] Erythrocyte distribution width (RBC) [Ratio] 14.7 % 11.6-14.6 [facility] Immature granulocytes/100 WBC (Bld) 1.900 % 0.0-0.9 [facility] Comment on above: IG% - Immature Granu locytes (promyelocytes, myelocytes and metamyelocytes) > 1% indicates that a LEFT SHIFT is Present. MCH (RBC) [Entitic mass] 28.4 pg 27.0-32.0 [facility] Nucleated RBC/100 WBC (Bld) [Ratio] 0 % 0-5 [facility] MCHC Auto (RBC) [Mass/Vol]Or dered By: Jesse Haywood on 12-17-2022 MCHC (RBC) [Mass/Vol] 32.4 g/dL 32-36 [facility] No Panel InformationOrdered By: Jesse Haywood on 12-17-2022 Estimated Creatinine Clearance Calc 34.17 ml/min [facility] Estimated GFR (MDRD) Amer 56 mL/min >60 [facility] Comment on above: GFR Calc Estimated GFR (MDRD) Non-Af Amer 47 mL/min >60 [facility] Comment on above: Non- GFR Calc Platelets bldOrdered By: Stephanie Haywood on 12-17-2022 Platelets (Bld) [#/Vol] 248 10*3/uL 150-450 [facility] Serum or plasma calcium akash urement (mass/volume)Ordered By: Jesse Haywood on 12-17-2022 Calcium [Mass/Vol] 8.0 mg/dL 8.5-10.1 [facility] Serum or plasma creatinine m easurement (mass/volume)Ordered By: Jesse Haywood on 12-17-2022 Creatinine [Mass/Vol] 1.53 mg/dL 0.70-1.30 [facility] Comment on above: The validity of the calculated GFR & GFRAA in patients over 70 years has not been determined. Clinical correlation is essential. Serum or plasma urea nitroge n measurement (mass/volume)Ordered By: Jesse Haywood on 12-17-2022 Urea nitrogen [Mass/Vol] 46 mg/dL 7-18 [facility] Thin prep Papanicolaou smear with manual screeningOrdered By: Jesse Haywood on 12-17-2022 Thin prep Papanicolaou smear with manual screening 7 5-15 [facility] Bacteria identified Anaer cx Nom (Unsp spec)Ordered By: Dwayne Palumbo on 12-16-2022 Anaerobic Culture Bacteroides vulgatus [facility] Bacteria identified Cx Nom ( Wound)Ordered By: Dwayne Palumbo on 12-16-2022 Wound Culture Escherichia coli [facility] Basophil percentageOrdered B y: Jesse Haywood on 12-16-2022 Bilirubin [Mass/Vol] 2.00 mg/dL 0.20-1.00 [facility] Comment on above: For patients on eltr ombopag therapy, use of Dimension Davidson TBIL is not recommended. Protein [Mass/Vol] 6.4 g/dL 6.4-8.2 [facility] Gram stain for investigation of transfusion reactionOrdered By: Dwayne Palumbo on 12-16-2022 Microscopic observation Gram stain Nom (Unsp spec) [facility] INR in Blood by Coagulation assayOrdered By: Emmanuel Kohler on 12-16-2022 INR Coag (Bld) [Relative time] 1.3 {INR} [facility] Laboratory - Chemistry and C hemistry - challengeOrdered By: Jesse Haywood on 12-16-2022 ALP [Catalytic activity/Vol] 278 U/L 45-117 [facility] ALT [Catalytic activity/Vol] 132 U/L 16-61 [facility] Globulin (S) [Mass/Vol] 4.2 g/dL 2.2-4.2 [facility] Laboratory - CoagulationOrde red By: Emmanuel Kohler on 12-16-2022 PT Coag (PPP) [Time] 16.5 s 11.7-14.9 [facility] Serum or plasma albumin akash urement (mass/volume)Ordered By: Jesse Haywood on 12-16-2022 Albumin [Mass/Vol] 2.2 g/dL 3.2-5.0 [facility] Serum or plasma albumin/glob ulin mass ratioOrdered By: Jesse Haywood on 12-16-2022 Albumin/Globulin [Mass ratio] 0.5 {ratio} 0.9-2.4 [facility] Thin prep Papanicolaou smear with manual screeningOrdered By: Jesse Haywood on 12-16-2022 Thin prep Papanicolaou smear with manual screening 74 U/L 15-37 [facility] Blood manual differential co mment interpretation (narrative result)Ordered By: Jesse Haywood on 12-15-2022 Manual differential comment Ghassan (Bld) [Interp] COMMENT [facility] Comment on above: MONOCYTOSIS. Laboratory - CoagulationOrde red By: Jesse Wang on 12-15-2022 aPTT Coag (Bld) [Time] 38.5 s 24.1-36.2 [facility] No Panel InformationOrdered By: Jesse Wang on 12-15-2022 Thyroid Stimulating Hormone (TSH) 1.50 uIU/mL 0.358-3.74 [facility] Review by pathologistOrdered By: Jesse Haywood on 12-15-2022 Pathologist review Ghassan (Unsp spec) [Interp] Reviewed [facility] Comment on above: Previous reported re sult: Stacy noonan Edited by: [email or web address] on 12/15/22:1321Neutrophilic leukocytosis.Clinical correlation necessary.Raymond Knox M.D. 12/15/22 AMENDED REPORT 12/15/22 1321 PATH REV previously reported as: Stacy noonan Whole blood hemoglobin A1c/t otal hemoglobin ratio (mass fraction)Ordered By: Jesse Wang on 12-15-2022 HbA1c (Bld) [Mass fraction] 6.9 % 3.8-5.6 [facility] Comment on above: Normal < 5.7 % Predi abetic 5.7 - 6.4 % Diabetic >or= 6.5 % Please note range changes. BLOOD TB SCREENon 09-02-2022 M. tuberculosis tuberculin stim IFN-g Ql (Bld) Negative [facility] Mitogen minus Nil 5.42 IU/mL >=0.50 IU/mL [facility] TB Gamma Interpretation Infection with M . tuberculosis complex is unlikely. If latent tuberculosis infection is highly suspected, a negative result does not rule out the infection. Specimens from immunocompromised patients and those <5 years of age may show false negative results. In case of a contact investigation, please repeat 8-12 weeks after a known exposure. [facility] TB Nil 0.02 IU/mL <=8.00 IU/mL [facility] TB1 Ag minus Nil 0.00 IU/mL <0.35 IU/mL [facility] TB2 Ag minus Nil <0.35 IU/mL [facility] CBC W Auto Differential pane l (Bld)on 09-02-2022 Anisocytosis Ql (Bld) Present [facility] Basophils (Bld) [#/Vol] 0.00 10*3/uL <0.11 k/uL [facility] Basophils/100 WBC (Bld) 0.0 % C [facility] Differential cell count method Nom (Bld) Manual [facility] Eosinophils (Bld) [#/Vol] 0.14 10*3/uL <0.46 k/ uL [facility] Eosinophils/100 WBC (Bld) 1.0 % [facility] Erythrocyte distribution width (RBC) [Ratio] 16.4 % High 11.5 - 15.0 % [facility] Hematocrit (Bld) [Volume fraction] 45.3 % 39.0 - 51.0 % [facility] Hemoglobin (Bld) [Mass/Vol] 14.4 g/dL 13.0 - 17.0 g/dL [facility] Lymphocytes (Bld) [#/Vol] 1.43 10*3/uL 1. 00 - 4.00 k/uL [facility] Lymphocytes/100 WBC (Bld) 10.0 % [facility] MCH (RBC) [Entitic mass] 29.9 pg 26. 0 - 34.0 pg [facility] MCHC (RBC) [Mass/Vol] 31.8 g/dL 30.5 - 36.0 g/dL [facility] MCV (RBC) [Entitic vol] 94.0 fL 80.0 - 100.0 fL [facility] [place] % 1.0 % [facility] Monocytes (Bld) [#/Vol] 1.00 10*3/uL High <0.87 k/uL [facility] Monocytes/100 WBC (Bld) 7.0 % [facility] Neutrophils (Bld) [#/Vol] 11.57 10*3/uL High 1 .45 - 7.50 k/uL [facility] Neutrophils/100 WBC (Bld) 81.0 % [facility] Nucleated RBC (Bld) [#/Vol] <0.01 k/uL [facility] Nucleated RBC/100 WBC (Bld) [Ratio] 0.0 /100 WBC [facility] Ovalocytes LM Ql (Bld) Few Cl [facility] Platelet mean volume (Bld) [Entitic vol] 11.1 fL 9.0 - 12.7 fL [facility] Platelets (Bld) [#/Vol] 282 10*3/uL 150 - 400 k/uL [facility] Platelets Estimate (Bld) [#/Vol] Adequate [facility] Polychromasia LM Ql (Bld) Slight [facility] RBC (Bld) [#/Vol] 4.82 10*6/uL 4.20 - 6.0 0 m/uL [facility] Red Cell Morph Reviewed: see result s of individual morphologies [facility] WBC (Bld) [#/Vol] 14.29 10*3/uL High 3.70 - 11.00 k/uL [facility] WBC Left Shift Ql (Bld) Present [facility] C-REACTIVE PROTEIN (CRP)on 0 09-01-2022 CRP [Mass/Vol] <0.9 mg/dL [facility] Comprehensive metabolic 2000 panelon 09-01-2022 Albumin [Mass/Vol] 4.0 g/dL 3.9 - 4.9 g/dL [facility] ALP [Catalytic activity/Vol] 88 U/L 38 - 113 U/L [facility] ALT [Catalytic activity/Vol] 19 U/L 10 - 54 U/L [facility] Anion gap [Moles/Vol] 11 mmol/L 9 - 18 mmol/L [facility] AST [Catalytic activity/Vol] 19 U/L 14 - 40 U/L [facility] Bilirubin [Mass/Vol] 0.5 mg/dL 0.2 - 1 .3 mg/dL [facility] Calcium [Mass/Vol] 9.4 mg/dL 8.5 - 10. 2 mg/dL [facility] Chloride [Moles/Vol] 106 mmol/L High 97 - 10 5 mmol/L [facility] CO2 [Moles/Vol] 21 mmol/L Low 22 - 30 mmol/L [facility] Creatinine [Mass/Vol] 2.01 mg/dL High 0.73 - 1.22 mg/dL [facility] Estimated Glomerular Filtration Rate 33 mL/min/1.73m Low >=60 mL/min/1.73 m [facility] Glucose [Mass/Vol] 146 mg/dL High 74 - 99 mg/dL [facility] Potassium [Moles/Vol] 4.5 mmol/L 3.7 - 5.1 mmol/L [facility] Protein [Mass/Vol] 7.2 g/dL 6.3 - 8.0 g/dL [facility] Sodium [Moles/Vol] 138 mmol/L 136 - 144 mmol/L [facility] Urea nitrogen [Mass/Vol] 50 mg/dL High 9 - 24 mg/dL [facility] ESR Westergren method (Bld) [Velocity]on 09-01-2022 ESR (Bld) [Velocity] 31 mm/h High 0 - 15 mm/hr [facility] VITAMIN D 25 HYDROXYon 09-01 25-hydroxyvitamin D3 [Mass/Vol] 27.8 ng/mL Low 31.0 - 80.0 ng/mL [facility] LABORATORYOrdered By: Michelle Gardner on 01-13-2022 Blood Glucose Testing Reason Routine (01/13/22 11:36 AM) [facility] Work Phone: Glucose [Mass/Vol] 101 mg/dL Invalid Interpretation Code 82 - 115 mg/dL [facility] Work Phone: Blood Glucose Testing Reason Routine (01/13/22 7:06 AM) [facility] Work Phone: Glucose [Mass/Vol] 87 mg/dL Invalid Interpretation Code 82 - 115 mg/dL [facility] Work Phone: LABORATORYOrdered By: SYSTEM SYSTEM [...] Glucose Testing Reason Routine (01/12/22 8:59 PM) [facility] Work Phone: Glucose [Mass/Vol] 153 mg/dL Invalid Interpretation Code 82 - 115 mg/dL [facility] Work Phone: LABORATORYOrdered By: Adali Spencer [...] Comment on above: Result Comment: [place] [address] FLU B PCR Negative 8 (01/12/22 10:33 AM) Invalid Interpretation Code Negative AH Auto Viro/Sero SS Comment on above: Result Comment: [place] [address] Hospitalized Yes (01/12/22 10:33 AM) Invalid Interpretation [...] Comment on above: Result Comment: Note s [address] SARS-CoV-2 (COVID-19) RNA ARIELLE+probe Ql (Unsp spec) Negative 6 (01/12/22 10:33 AM) Invalid Interpretation Code Negative AH Auto Viro/Sero SS Comment on above: Result Comment: [place] s [address] Symptomatic as Defined by CDC No (01/12/22 [...] Glucose Interventions Administered food/juice (01/06/22 8:38 AM) [facility] Work Phone: LABORATORYOrdered By: SYSTEM SYSTEM [...] Interpretation Code BB Manual SS LABORATORYOrdered By: Brenadn Aguilera on 01-04-2022 ABO and Rh group Nom (Bld) Blood group A Rh(D) positive Invalid Interpretation Code BB Auto SS Blood group antibody screen Ql NEG (01/04/22 5:18 PM) Invalid Interpretation Code BB Auto SS LABORATORYOrdered By: Pascale Murphy on 01-04-2022 RBC Product Ready RBC Ready for Pickup (01/04/22 4:44 PM) Invalid Interpretation Code BB Manual SS LABORATORYOrdered By: [employer] SYSTEM on 01-04-2022 Albumin BCP dye [Mass/Vol] [...] Code AH Auto Coag SS LABORATORYOrdered By: [employer] SYSTEM on 12-30-2021 Troponin I.cardiac DL <= [...] Blood Glucose Interventions Retest (12/30/21 8:53 AM) [facility] Work Phone: LABORATORYOrdered By: Rohan Rivero [...] to increase blood sugar (12/30/21 8:32 AM) [facility] Work Phone: Hemoglobin A1con 08-04-2021 Glucose [Mass/Vol] 258 mg/dL Normal [facility] Reference Lab Comment on above: Performed By: #### H BA1C #### [facility] Laboratories Routine Lab [address], [place] [id number] HbA1c (Bld) [Mass fraction] 10.6 % High 4.3-5.6 [facility] Reference Lab Comment on above: Performed By: #### H BA1C #### [facility] Routine Lab [address], [place] [address] Glucose,Bedsideon 02-09-2021 Glucose [Mass/Vol] 185 mg/dL High 70-100 [facility] Comment on above: Result Comment: Test performed by glucose meter. Results may be 10%-15% lower than serum/plasma values. (CLIA ID [id number]) Performed By: #### B GLU #### [facility] [address] [place] [address] Glucose [Mass/Vol] 284 mg/dL High 70-100 [facility] Comment on above: Result Comment: Test performed by glucose meter. Results may be 10%-15% lower than serum/plasma values. (CLIA ID [id number]) Performed By: #### B GLU #### [address] [address] OPERATIVE REPORTOrdered By: 3m Scanning on 02-09-2021 [facility] Work Phone: Op Noteon 02-09-2021 Op Note [facility] Dictation: Topical Anesthesia Note Patient Name: Elizabeth Modi : 1940 Date of Procedure: 02/09/2021 Surgeon: Ammy Vicente M.D. [employer] Heater Helper: Rachel Elder MD Anesthesia: Monitored Anesthesia Care [...] then created using a cystotome and utrata forceps.Ideal-dissecti on and hydro-delineation were then performed. Phacoemulsification [...] or any other concerns. Operative Note Normal [facility] POCT GlucoseOrdered By: Gayatri Vicente on 02-09-2021 Glucose [Mass/Vol] 185 mg/dL High 70 - 100 mg/dL [facility] Work Phone: Comment on above: Test performed by [employer] ucose meter. Results may be 10%-15% lower than serum/plasma values. (CLIA ID [id number]) Interpretation and review of laboratory results Abnormal [facility] Work Phone: Test Performed by [facility], [address] [place] [address] [facility] Work Phone: [facility] Work Phone: Glucose [Mass/Vol] 284 mg/dL High 70 - 100 mg/dL [facility] Work Phone: Comment on above: Test performed by [employer] ucose meter. Results may be 10%-15% lower than serum/plasma values. (CLIA ID [id number]) Interpretation and review of laboratory results Abnormal [facility] Work Phone: Test Performed by [facility], [address] [place] [address] [address] [facility] Work Phone: [facility] Work Phone: Hemoglobin A1con 12-03-2020 Glucose [Mass/Vol] 194 mg/dL Normal [facility] Reference Lab Comment on above: Performed By: #### H BA1C #### [facility] Routine Lab [address] [place], [place] [id number] HbA1c (Bld) [Mass fraction] 8.4 % High 4.3-5.6 [facility] Reference Lab Comment on above: Performed By: #### H BA1C #### [facility] Routine Lab [address] [place], [place] [address] ECHOCARDIOGRAM LIMITED/FOLLO WUPon 11-13-2020 ECHOCARDIOGRAM [...] 06/08/2020, LV function has improved. Facility [facility] Patient Information Patient Name Elizabeth Modi [...] Role Read Date Dwayne Carrasco MD [place] 11/13/2020 Left Heart Measurements LV - Systole [...] patient's inability to turn. Imaging system used: [employer]. Exam Details Performed Procedure (more content not included)... Normal [facility] Hemoglobin A1con 09-10-2020 Glucose [Mass/Vol] 177 mg/dL Normal [facility] Reference Lab Comment on above: Performed By: #### H BA1C #### [facility] Routine Lab [address], [place] [address] HbA1c (Bld) [Mass fraction] 7.8 % High 4.3-5.6 [facility] Reference Lab Comment on above: Performed By: #### H BA1C #### [facility] Routine Lab [address], [place] [address] CNPYessenia 05-20-2020 [facility]N [facility] ELIZABETH MODI ([id number]) 1940 M Date Time Provider Department 05/20/20 [...] (HCC) [E44.0] 08/22/2019 PVD (peripheral vascular disease) ([facility]) [I73.9] 12/07/2019 Below knee amputation ([facility]) [S88.119A] 12/07/2019 Nonhealing surgical wound [T81.89XA] 12/09/2019 Encounter Status:Closed by ZOLTAN EWING on 05/20/20 [facility] GURWINDERN Telephone (AGVASACC) ELIZABETH MODI ([id number]) 1940 M Date Time Provider Department 05/20/20 RYAN ALLEN During your visit today, we recorded the following information about you: Bren Santos 05/20/2020 2:52 PM Signed I have received a call from the daughter Angelic and she stated her [place] is in [place] where he has had great toe removed [...] [facility] Center PROGRESSon 05-18-2020 PROGRESS HNO ID: [id number] Author: Ryan Allen Service: ? Author Type: [...] Anxiety and depression - DM (diabetes mellitus) ([facility]) - Dyslipidemia - HTN (hypertension) - [...] MG DAILY@0800 October 12, 2019 7:37am 10-12-2019 [facility] ([id number]) - gabapentin (NEURONTIN) 600 mg tablet Take [...] encounter diagnosis) (I73.9) PVD (peripheral vascular disease) ([facility]) (E11.69) Type 2 diabetes mellitus with other specified complication, without long-term current use of insulin ([facility]) (S91.302A) Open wound of left foot [...] this point. Given the state of the [facility] emergency room at this junction it may be better to have him seen locally at [facility] and see if some antibiotic therapy at least overnight might be worth a try. Possible transfer from there would depend on his stability and the bed availability here at [facility] There are no Patient Instructions on file for this visit. Ryan Allen MD [facility] Bas Metab 2000 Pnl SerPlon 1 07-15-2019 Anion gap [Moles/Vol] 13 mmol/L Normal 9-18 [facility] Comment on above: Order Comment: Speci men Type: BLOOD SPECIMEN Performed By: #### 2 4321-2 #### [facility] CLIA [id number] [address] [place] [address] Calcium [Mass/Vol] 9.8 mg/dL Normal 8.5-10.2 [facility] Comment on above: Order Comment: Speci men Type: BLOOD SPECIMEN Performed By: #### 2 4321-2 #### [facility] CLIA [id number] [address] [place] [address] Chloride [Moles/Vol] 102 mmol/L Normal 97-105 [facility] Comment on above: Order Comment: Speci men Type: BLOOD SPECIMEN Performed By: #### 2 4321-2 #### [facility] CLIA [id number] [address] [place] [address] CO2 [Moles/Vol] 24 mmol/L Normal 22-30 [facility] Comment on above: Order Comment: Speci men Type: BLOOD SPECIMEN Performed By: #### 2 4321-2 #### [facility] CLIA [id number] [address] [place] [address] Creatinine [Mass/Vol] 0.95 mg/dL Normal 0.73-1.22 [facility] Comment on above: Order Comment: Speci men Type: BLOOD SPECIMEN Performed By: #### 2 4321-2 #### [facility] CLIA [id number] [address] [place] [address] GFR/1.73 sq M.predicted MDRD (S/P/Bld) [Vol rate/Area] [...] GFR. Performed By: #### 2 4321-2 #### [facility] CLIA [id number] [address] [place] [address] Glucose [Mass/Vol] 214 mg/dL High 74-99 [facility] Comment on above: Order Comment: Speci men Type: BLOOD SPECIMEN Result Comment: The [place] [employer] (ADA) provides guidance for [...] Standards of Medical Care in Diabetes 2016, [place] [employer]. Diabetes Care. 2016.39(Suppl 1). Performed By: #### 2 4321-2 #### [facility] CLIA [id number] [address] [place] [address] Potassium [Moles/Vol] 4.9 mmol/L Normal 3.7-5.1 [facility] Comment on above: Order Comment: Speci men Type: BLOOD SPECIMEN Performed By: #### 2 4321-2 #### [facility] CLIA [id number] [address] [place] [address] Sodium [Moles/Vol] 139 mmol/L Normal 136-144 [facility] Comment on above: Order Comment: Speci men Type: BLOOD SPECIMEN Performed By: #### 2 4321-2 #### [facility] CLIA [id number] [address] [place] [address] Urea nitrogen [Mass/Vol] 31 mg/dL High 9-24 [facility] Comment on above: Order Comment: Speci men Type: BLOOD SPECIMEN Performed By: #### 2 4321-2 #### [facility] CLIA [id number] [address] [place] [address] CBC (hemogram) Bld Autoon Erythrocyte distribution width (RBC) [Ratio] 12.8 % Normal 11.5-15.0 [facility] Comment on above: Order Comment: Speci men Type: BLOOD SPECIMEN Performed By: #### 5 8410-2 #### [facility] CLIA [id number] [address] [place] [address] Hematocrit (Bld) [Volume fraction] 43.5 % Normal 39.0-51.0 [facility] Comment on above: Order Comment: Speci men Type: BLOOD SPECIMEN Performed By: #### 5 8410-2 #### [facility] CLIA [id number] [address] [place] [address] Hemoglobin (Bld) [Mass/Vol] 14.1 g/dL Normal 13.0-17.0 [facility] Comment on above: Order Comment: Speci men Type: BLOOD SPECIMEN Performed By: #### 5 8410-2 #### [facility] CLIA [id number] [address] [place] [address] MCH (RBC) [Entitic mass] 29.5 pg Normal 26.0-34.0 [facility] Comment on above: Order Comment: Speci men Type: BLOOD SPECIMEN Performed By: #### 5 8410-2 #### [facility] CLIA [id number] [address] [place] [address] MCHC (RBC) [Mass/Vol] 32.4 g/dL Normal 30.5-36.0 [facility] Comment on above: Order Comment: Speci men Type: BLOOD SPECIMEN Performed By: #### 5 8410-2 #### [facility] CLIA [id number] [address] [place] [address] MCV (RBC) [Entitic vol] 91.0 fL Normal 80.0-100.0 [facility] Comment on above: Order Comment: Speci men Type: BLOOD SPECIMEN Performed By: #### 5 8410-2 #### [facility] CLIA [id number] [address] [place] [address] Nucleated RBC (Bld) [#/Vol] 10*3/uL Normal <0.01 [facility] Comment on above: Order Comment: Speci men Type: BLOOD SPECIMEN Performed By: #### 5 8410-2 #### [facility] CLIA [id number] [address] [place] [address] Platelet mean volume (Bld) [Entitic vol] 10.4 fL Normal 9.0-12.7 [facility] Comment on above: Order Comment: Speci men Type: BLOOD SPECIMEN Performed By: #### 5 8410-2 #### [facility] CLIA [id number] [address] [place] [address] Platelets (Bld) [#/Vol] 367 10*3/uL Normal 150-400 [facility] Comment on above: Order Comment: Speci men Type: BLOOD SPECIMEN Performed By: #### 5 8410-2 #### [facility] CLIA [id number] [address] [place] [address] RBC (Bld) [#/Vol] 4.78 10*6/uL Normal 4.20-6.00 [facility] Comment on above: Order Comment: Speci men Type: BLOOD SPECIMEN Performed By: #### 5 8410-2 #### [facility] CLIA [id number] [address] [place] [address] WBC (Bld) [#/Vol] 11.87 10*3/uL High 3.70-11.00 [facility] Comment on above: Order Comment: Speci men Type: BLOOD SPECIMEN Performed By: #### 5 8410-2 #### [facility] CLIA [id number] [address] [place] [address] CNPNon 05-15-2020 JONAS Telephone (AGGeoloqi) LYELIZABETH ([id number]) 1940 M Date Time Provider Department 05/15/20 [...] bad enough to go to ER. Kassidy Avial LPN Allergies As of Date: 05/15/2020 (No Known Allergies) Date Reviewed: 05/15/2020 Reviewed by: Sunshine ([facility]) Kimberly - Fully Assessed Reason for [...] a calculated value from HgbA1c and is textile machinery sales representative of the average blood glucose level in the last 2-3 month period. Performed By: #### H BA1C ####[facility] [id number] [place] [address] HbA1c (Bld) [Mass fraction] 8.2 % High [...] of diabetes. Performed By: #### H BA1C ####[facility] [id number] [place] [address] HISTORY PHYSICALon 0 HISTORY PHYSICAL HNO ID: [id number] Author: Sunshine (Gurwinder) Kimberly Service: ? Author [...] Moderate Degree (Hcc) Pvd (Peripheral Vascular Disease) ([facility]) Below Knee Amputation ([facility]) Nonhealing Surgical Wound Subjective CHIEF COMPLAINT: PVD [...] Anxiety and depression - DM (diabetes mellitus) ([facility]) - Dyslipidemia - HTN (hypertension) - Hypothyroidism - PVD (peripheral vascular disease) ([facility]) PAST SURGICAL HISTORY Procedure Laterality Date [...] MG DAILY@0800 October 12, 2019 7:37am 10-12-2019 [facility] ([id number]) Taking Yes gabapentin (NEURONTIN) 600 mg tablet [...] CP and palpitations. No h/o of CHF, [place], Cardiac Sx, cardiac stents, PPM/AICD. +HTN, HLD, [...] managed by PCP. no recent A1C in [facility], most recent BG check from 12/11/2019 was 126. will get A1C at [facility] Former Smoker- quit in 1989, 30 [...] COVID, ECG, PT, CBC, BMP ordered in [facility] per surgeon. CONSULTS: No consults pending. [...] with VKA drugs, such as warfarin, the [place] [employer] 2012 Guideline [...] Chest 2012, 141:7S-47S Dada RA, et al. [facility] 2017, 70: 252-289 Performed By: #### 3 4528-0 #### [facility] CLIA [id number] [address] [place] [address] PT Coag (PPP) [Time] 10.6 s Normal 9.7-13.0 [facility] Comment on above: Order Comment: Speci men Type: BLOOD SPECIMEN Performed By: #### 3 4528-0 #### [facility] CLIA [id number] [address] [place] [address] PT EDon 05-13-2020 PT ED HNO ID: [id number] Author: Jeni (Yuri) YURI [employer]emaker Service: ? [...] [facility] Center PROGRESSon 04-29-2020 PROGRESS HNO ID: [id number] Author: Ryan Allen Service: ? Author Type: Physician Type: Progress Notes Filed: 04/29/2020 7:08 PM Note Text: This note was partially generated using [employer] voice recognition system. I spent 15+ minutes in the visit, with more than 50% of the total dipr-lq-egjr time of the visit in counseling / [...] 04-28-2020 CNOV Office Visit (AGVASACC) ELIZABETH MODI ([id number]) 1940 M Date Time Provider Department 04/28/20 11:00 AM RYAN ALLEN JERZY During your visit today, we recorded the following information about you: Temperature Blood pressure Weight Height 80 degrees 134/60 88 kg 1.778 m Ryan Allen MD 04/29/2020 7:08 PM Signed This note was partially generated using [employer] voice recognition system. I spent 15+ minutes in the visit, with more than 50% of the total lwzq-vz-ushg time of the visit in counseling / [...] runoffs Primary Visit Diagnosis:PVD (peripheral vascular disease) ([facility]) [I73.9] Other Visit Diagnoses:Nonhealing nonsurgical wound [...] RYAN ALLEN MD [facility]/29/20 [facility] JONAS [facility] (AGVASMENDY) ELIZABETH MODI ([id number]) 1940 M Date Time Provider Department 04/28/20 [...] Covid is 05/23/20 @ 1130 am at [facility] Post OP is 06/23/20 @ 10 am with Devin Mailed 04/30/20 shaila Lambert has been notified of dates and times. Allergies As of Date: 04/28/2020 (No Known Allergies) Date Reviewed: 04/28/2020 Reviewed by: Luke Alfaro) Austin - Fully Assessed Reason for Visit: Schedule Surgery [1330] Primary Visit Diagnosis:PVD (peripheral vascular disease) (HCC) [I73.9] Order(s):SURGICAL REQUEST - ELECTIVE (01/2020) [5809871] Order #: [id number]: 1 HANDP FOR SURGERY [A9214PNN] Order #: [id number] PRE-PROCEDURE AND PRE-OPERATIVE COVID [SQPOCOVD] Order #: [id number] FUTURE CBC [SQCBC] Order #: [id number] FUTURE BASIC METABOLIC PNL [SQBMP] Order #: [id number] FUTURE PROTHROMBIN TIME/PT [SQPT] Order #: [id number] FUTURE ECG COMPLETE [ECG01] Order #: [id number] FUTURE Prescriptions as of 04/28/2020 Sig: ASPIRIN [...] CNOV Office Visit (AKURFL ) ELIZABETH MODI ([id number]) 1940 M Date Time Provider Department 04/21/20 1:30 PM YADI WHITE During your visit today, we recorded the following information about you: Weight Height 88 kg 1.778 m Yadi White DO, MBA 04/21/2020 3:13 PM Signed ?? [facility] [place] [facility] LOCATION: [address] [place] [address] NEW CONSULT VISIT PATIENT INFO: Elizabeth Ly [...] MG DAILY@0800 October 12, 2019 7:37am 10-12-2019 [facility] ([id number]) gabapentin (NEURONTIN) 600 mg tablet Take 600 [...] with more than 50% of the total gktd-zl-colc time of the visit in counseling / coordination of care. Yadi White DO MBA Letter to: Dexter Reyes MD Referring Provider: DEXTER REYES [facility] [[id number]] Allergies As of Date: 04/21/2020 (No Known Allergies) Date Reviewed: 04/21/2020 Reviewed by: Yadi White - Fully Assessed Reason for Visit: Kidney Problem [61] Visit Diagnosis:Other specified disorders of kidney and ureter [N28.89] Order(s):CT KIDNEY WO/W IVCON [[id number]] Order #: [id number] FUTURE iv contrast (will be provided with [...] [facility] Center PROGRESSon 04-21-2020 PROGRESS HNO ID: [id number] Author: Yadi White Service: ? Author Type: Physician Type: Progress Notes Filed: 04/21/2020 3:13 PM Note Text: ?? [facility] [place] [facility] LOCATION: [address] [place] [address] NEW CONSULT VISIT PATIENT INFO: Elizabeth Modi [...] MG DAILY@0800 October 12, 2019 7:37am 10-12-2019 [facility] ([id number]) gabapentin (NEURONTIN) 600 mg tablet Take 600 [...] with more than 50% of the total ixse-do-mnnb time of the visit in counseling / coordination of care. Yadi White DO MBA Letter to: [facility] (AGVASACC) ELIZABETH MODI ([id number]) 1940 M Date Time Provider Department 03/31/20 11:00 AM RYAN ALLEN During your visit today, we recorded the following information about you: Pulse Respiration Blood pressure Weight 78/minute 18/minute 124/70 88 kg Height 1.778 m Ryan Allen MD 03/31/2020 12:50 PM Signed I spent 15+ minutes in the visit, with more than 50% of+ the total vunc-va-kecb time of the visit in counseling / coordination of care. This note partially generated using [employer] voice recognition system. Mr. Modi and his daughter were seen in the office today for follow-up of his peripheral vascular disease. He's feeling up a complicated wound in the right below-knee stump but also has a left great toe nonhealing wound. I believe this is being followed by the performance improvement manager or the wound care center in the [facility]. He also notes that the prosthetic company is having trouble getting appropriate authorization for his prosthesis. Since the patient left I have call that office, [facility]. We have left a message from then [...] appropriate authorization for were reviewed needs from [facility]. He has had a urologist in the past but can't remember the name in the [facility]. I would refer to the primary care office if they feel appropriate urologist is available locally in this patient. If not we will be happy to refer to a urologist in the [facility]. Hopefully within the next few weeks [...] Allergies) Date Reviewed: 03/31/2020 Reviewed by: Ryan Allne - Fully Assessed Reason for Visit: Peripheral [...] (HCC) [E44.0] 08/22/2019 PVD (peripheral vascular disease) ([facility]) [I73.9] 12/07/2019 Below knee amputation ([facility]) [S88.119A] 12/07/2019 Nonhealing surgical wound [T81.89XA] 12/09/2019 Letter Text Encounter Status:Closed by RYAN ALLEN MD on 03/31/20 [facility] PROGRESSon 03-31-2020 PROGRESS HNO ID: [id number] Author: Ryan Allen Service: ? Author Type: Physician Type: Progress Notes Filed: 03/31/2020 12:50 PM Note Text: I spent 15+ minutes in the visit, with more than 50% of+ the total hiaq-cm-gynx time of the visit in counseling / coordination of care. This note partially generated using Elivar voice recognition system. Mr. Modi and his daughter were seen in the office today for follow-up of his peripheral vascular disease. He's feeling up a complicated wound in the right below-knee stump but also has a left great toe nonhealing wound. I believe this is being followed by the performance improvement manager or the wound care center in the [facility]. He also notes that the prosthetic company is having trouble getting appropriate authorization for his prosthesis. Since the patient left I have call that office, [facility]. We have left a message from then [...] appropriate authorization for were reviewed needs from [facility]. He has had a urologist in the past but can't remember the name in the [facility]. I would refer to the primary care office if they feel appropriate urologist is available locally in this patient. If not we will be happy to refer to a urologist in the [facility]. Hopefully within the next few weeks [...] [facility] CNPNon 03-04-2020 GUR[facility]ERN Telephone (AGGeoloqi) ELIZABETH OMDI ([id number]) 1940 M Date Time Provider Department 03/04/20 [facility] During your visit today, we recorded the [...] DATE OF EXAM: Feb 28 2020 4:00PM [facility] 0465 - CTA ABD/PEL/LOWER EXT [...] renal protocol CT or MRI. 2. Right ajawz-lgc-dkng amputation. No subcutaneous fat stranding or fluid collection. Other chronic findings, as above. Cigarette Carton Sealer: PSCB Transcribe Date/Time: Mar 02 2020 2:59P Dictated by : ANDRE BUI MD This examination was interpreted and the report reviewed and electronically signed by: ANDRE BUI MD on Mar 02 2020 3:31PM EST [facility] Office Visit (AGVASACC) ELIZABETH MODI ([id number]) 1940 M Date Time Provider Department 02/13/20 1:30 PM MARIA ESTHER GUSMAN (RETAIL PERSONAL BANKER, RETAIL LOAN OFFICER)LUCRECIA During your visit today, we recorded the following information about you: Pulse Respiration Blood pressure Weight 76/minute 18/minute 118/64 88 kg Height 1.778 m Maria Esther Gusman APRN.RETAIL LOAN OFFICER, RETAIL LOAN OFFICER 02/13/2020 4:20 PM Signed Elizabeth Modi 79 [...] He has not been in contact with [employer] in some time, as he was advised to wait until cleared from the wound vac. Additionally, he reports that he's been seeing a client technologies specialist for the wounds on his left [...] Stable post op; [facility]; Will discuss with Dr. Allen plan for evaluation/treatment of LLE with continued wounds. PLAN: Will proceed with CTA to further evaluation LLE at this time. Pt encouraged to call with any questions, problems, concerns, or changes. The patient is currently taking a statin: Yes The patient is currently taking aspirin: Yes Maria Esther Gusman APRN.RETAIL LOAN OFFICER Referring Provider: SELF [200] Allergies As of [...] [I99.8] Order(s):CTA ABD/PEL LOWER EXTREM WO/W IVCON [[id number]] Order #: [id number] FUTURE iv contrast (will be provided with [...] EachRfl: 0 CREATININE BLD [SQCRET] Order #: [id number] FUTURE Prescriptions as of 02/13/2020 Sig: INSULIN [...] Medical Center PROGRESSon 02-13-2020 PROGRESS HNO ID: [id number] Author: Maria Esther (Online Advertising Analyst Gurwinder) GURWINDER Gusman Service: ? Author Type: [...] He has not been in contact with [employer] in some time, as he was advised to wait until cleared from the wound vac. Additionally, he reports that he's been seeing a client technologies specialist for the wounds on his left [...] Stable post op; OK to follow-up with [employer] for RLE prosthetic; Will discuss with Dr. Allen plan for evaluation/treatment of LLE with continued wounds. PLAN: Will proceed with CTA to further evaluation LLE at this time. Pt encouraged to call with any questions, problems, concerns, or changes. The patient is currently taking a statin: Yes The patient is currently taking aspirin: Yes Maria Esther Gusman APRN.GURWINDER [facility] JONAS Telephone (AGGeoloqi) ELIZABETH MODI ([id number]) 1940 M Date Time Provider Department 02/05/20 RYAN ALLEN During your visit today, we recorded the following information about you: Luke Pérez LPN 02/05/2020 10:51 AM Signed Millie from [facility] called stating that there has been no drainage in the canister the past couple visits. They removed it yesterday and wound had scant drainage and a depth of 0.2cm. They are wondering if they can D/C wound vac and put a wet to dry on. Thanks, MARV Bulm APRN.GURWINDER BECERRA 02/05/2020 11:03 AM Signed Yes. Agree with plan to DC vac and use W-D dressing BID. Thanks, Maria Esther Gusman APRN.GURWINDER Pérez LPN 02/05/2020 11:24 AM Signed Relayed information to [facility] nurse. Acknowledged new order for wet to [...] 01-08-2020 [facility] Office Visit (AGVASACC) ELIZABETH MODI ([id number]) 1940 M Date Time Provider Department 01/08/20 3:30 PM YRAN ALLEN During your visit today, we recorded the following information about you: Pulse Respiration Blood pressure Weight 78/minute 18/minute 126/70 88.9 kg Height 1.778 m Ryan Allen MD 01/08/2020 4:01 PM Signed This note was partially generated using Elivar voice recognition system. Is a postop visit [...] [S88.119A] Other Visit Diagnosis:PVD (peripheral vascular disease) ([facility]) [I73.9] Prescriptions as of 01/08/2020 Sig: [...] RYAN ALLEN MD on 01/08/20 [facility] Telephone (AGBLAIRACC) ELIZABETH MODI ([id number]) 1940 M Date Time Provider Department 01/08/20 RYAN ALLEN During your visit today, we recorded the following information about you: Luke Pérez LPN 01/08/2020 1:18 PM Signed Millie [facility] nurse called to let us know that [...] Medical Center PROGRESSon 01-08-2020 PROGRESS HNO ID: [id number] Author: Ryan Allen Service: ? Author Type: Physician Type: Progress Notes Filed: 01/08/2020 4:01 PM Note Text: This note was partially generated using Elivar voice recognition system. Is a postop visit [...] CASE MANAGEMon 12-11-2019 CASE MANAGEM HNO ID: [id number] Author: Tami Izquierdo) YURI Patricio Service: Care Management Author Type: Registered Nurse Type: Care Mgt Progress Note Filed: 12/11/2019 3:28 PM Note Text: CARE MANAGEMENT DISCHARGE NOTE SERVICE DATE: 12/11/2019 SERVICE TIME: 3:27 PM LOS: 2 days Admission Date: 12/09/2019 DISCHARGE ARRANGEMENT (list agency and phone number) Discharge Arrangement: Home Retirement Care: Nursing;OT;PT Provider Name: [facility] Phone: . CAREGIVER ASSESSMENT: Caregiver is ready, willing and able to meet the patient's needs as recommended by the inter-professional team:: Yes Does the patient have an acute stroke diagnosis, or has the patient had a stroke during this admission?: No Patient's transition needs and plan for meeting these needs: Home with [facility]. HANDOFF COMMUNICATION: TRANSPORTATION ARRANGEMENTS: Transportation Arrangements: Car ADDITIONAL CONTACT RESOURCES: Pts wound vac approved through [facility]. SIGNATURE: Tami Patricio RN PATIENT NAME: Elizabeth Modi DATE: December 11, 2019 TIME: 3:27 PM PAGER/CONTACT #: [phone] [facility] CONSULT PROGon 12-11-2019 CONSULT PROG HNO ID: [id number] Author: Adali Murry Service: Wound Care Team Author Type: Nurse Specialist Type: Consult Progress Note Filed: 12/11/2019 2:39 PM Note Text: WOUND CARE CONSULT RETAIL PERSONAL BANKER NOTE SERVICE DATE: 12/11/2019 SERVICE TIME: 1315 TIME SPENT (minutes): 45 REASON FOR CONSULT: Eval R BKA, wound vac change CHIEF COMPLAINT: c/o open wound to R lateral BKA Subjective HISTORY OF PRESENT ILLNESS: Mr. Modi is a 79 year old male who is seen today with S Sch[facility] Wound/hybrid derivatives trader, and presented to hospital w/ R BKA [...] found under the Get Images tab on [facility]. Photos are uploaded by the wound personal carer and may not be immediately available for viewing. Contact the wound and ostomy care department with questions. SIGNATURE: Adali Murry APRN.DIRECTOR OF PUPIL PERSONNEL PROGRAM PATIENT NAME: Elizabeth Modi DATE: December 11, 2019 TIME: 2:24 PM CONTACT#: [id number] Normal [facility] Glucose Meteron 12-11-2019 Glucose [Mass/Vol] 126 mg/dL High 70-99 [facility] Comment on above: Result Comment: RN N OTIFIED Performed By: #### M AG #### [place] [address] OPERATIVE NOon 12-11-2019 OPERATIVE NO HNO ID: [id number] Author: Ryan Allen Service: ? Author Type: Physician Type: Operative Report Filed: 12/11/2019 1:51 PM Note Text: [facility] - Operative Report ELIZABETH MODI : 1940 AGE: 79. SEX: M PATIENT TYPE: I HOSP SVC: KEENAN LOCATION: [facility] ATTENDING PHYSICIAN: RYAN ALLEN CSN NUMBER: [id number] DATE OF SURGERY/PROCEDURE: 12/09/2019 INCISION/PROCEDURE START TIME: 10:54 AM INCISION CLOSE/PROCEDURE END TIME: 11:10 AM PREOPERATIVE DIAGNOSIS: Nonhealing wound, status post right below-knee amputation. POSTOPERATIVE DIAGNOSIS: Nonhealing wound, status post right below-knee amputation. SURGEON: Ryan Allen MD, FACS EXTRACTOR OPERATOR SOLVENT PROCESS: 1. Sunny Brito MD. 2. Mara Godinez SA. SURGERY/PROCEDURE: Irrigation and debridement of right lower extremity wound with placement of wound VAC. ANESTHESIA: General HISTORY: This is a 79-year-old gentleman, who has undergone multiple procedures with the Vascular Service at [facility]. Ultimately, unfortunately this has terminated in a below-knee amputation. In his followup, he was seen at the [facility] office in [place] by Dr. Gordo Figueroa and it was [...] satisfactory postoperative condition. Ryan Allen MD, FACS RGN:[id number] /[id number] cc:Macho Reyes MD [facility] PLAN OF CAREon 12-11-2019 PLAN OF CARE HNO ID: [id number] Author: Olga Parekh (Plumbing Contractor) Service: ? Author Type: ? Type: Plan of Care Filed: 12/11/2019 11:33 AM Note Text: COMPRESSOR STATION ENGINEER BEDSIDE DELIVERY SURVEY 1. Patient to use [facility] Bedside Delivery - YES Insurance Information as follows: 2. Insurance card on file - YES 3. Credit card for payment - N/A Please call pharmacy bedside delivery at [phone] or [phone] if patient would like medications filled and delivered prior to discharge. Olga Parekh (Plumbing Contractor) [facility] PROGRESSon 12-11-2019 PROGRESS HNO ID: [id number] Author: Rohan Duran DO Service: Vascular Surgery [...] questions or concerns Mon-Fri 6a-5p please page [phone]. After 5pm and on Weekends and Holidays, please page [phone] if in ICU or [phone] if on RNF. Subjective SUBJECTIVE: NAEON. Did [...] 12/10/19 07 - 12/11/1965812/11/19699 - 12/12/1958 Shift 5061-1799 5517-2038 7939-9654 24 Hour Total 8786-1853 3585-2098 0112-4074 24 Hour Total INTAKE Shift Total OUTPUT Urine 415 960 5786 Void (ml) 274 830 8094 Drains 0 0 Negative Pressure: Output (mL) 0 0 # of BMs Number of BMs 1 x 1 x Shift Total 356 436 8657 Weight (kg) 88.2 88.2 88.2 88.2 88.2 [...] PT EDon 12-11-2019 PT ED HNO ID: [id number] Author: Isac Navarro (Pharmacist) Service: Pharmacy Author [...] THERAPY NTon 12-11-2019 THERAPY NT HNO ID: [id number] Author: Maricarmen SantiagoOtr/Vickie Good Service: Occupational Therapy Author Type: Occupational Therapist Type: Therapy (PT/OT/Speech/Resp) Filed: 12/11/2019 3:31 PM Note Text: Occupational Therapy Evaluation SERVICE DATE: 12/11/2019 SERVICE TIME: 1435 to 1459 ROOM: [place] [address] Recommended Discharge Disposition: Home OT Recommended Discharge [...] living (ADL) Interventions Provided: Evaluation $ Evaluation-Moderate (48720) Billed Units: 1 unit OT Evaluation Moderate [...] [facility] THERAPY NT HNO ID: [id number] Author: Marilyn Flores Service: Physical Therapy Author Type: Physical Therapist Type: Therapy (PT/OT/Speech/Resp) Filed: 12/11/2019 2:48 PM Note Text: Physical Therapy Evaluation SERVICE DATE: 12/11/2019 SERVICE TIME: 1341 to 1408 ROOM: [place] [address] Recommended Discharge Disposition: Home PT Recommended Discharge [...] Difficulty walking-musculoskeleta l Interventions Provided: Evaluation;Therapeutic Activity (43723) $ Evaluation-Moderate (39968) Billed Units: 1 unit History and examination of body systems see assessment section above. This patient?s clinical presentation is evolving. The patient required a moderate complexity evaluation. Therapeutic Activity (82552) Treatment Minutes: 11 1 unit Skilled Intervention(s): [...] C BC1 #### [facility] [address] [place], [place] [address] Calcium [Mass/Vol] 9.0 mg/dL Normal 8.5-10.2 [facility] Comment on above: Performed By: #### C BC1 #### [facility] [address] [place], [place] [address] Chloride [Moles/Vol] 100 mmol/L Normal 97-105 [facility] Comment on above: Performed By: #### C BC1 #### [facility] [address] [place], [place] [address] CO2 Blood 25 mmol/L Normal 22-30 [facility] Comment on above: Performed By: #### C BC1 #### [facility] [address] [place], [place] [address] Creatinine [Mass/Vol] 1.14 mg/dL Normal 0.73-1.22 [facility] Comment on above: Performed By: #### C BC1 #### [facility] [address] [place], [place] [address] Glucose [Mass/Vol] 113 mg/dL High 74-99 [facility] Comment on above: Result Comment: The [place] Diabetes Association (ADA) provides guidance for [...] Standards of Medical Care in Diabetes 2016; [place] [employer] Association. Diabetes Care. 2016;39(Suppl 1). Performed By: #### C BC1 #### [facility] [address] [place], [place] [address] Potassium [Moles/Vol] 4.1 mmol/L Normal 3.7-5.1 [facility] Comment on above: Performed By: #### C BC1 #### [facility] [address] [place], [place] [address] Sodium [Moles/Vol] 138 mmol/L Normal 136-144 [facility] Comment on above: Performed By: #### C BC1 #### [facility] [address] [place], [place] [address] Urea nitrogen [Mass/Vol] 22 mg/dL Normal 9-24 [facility] Comment on above: Performed By: #### C BC1 #### [facility] [address] [place], [place] [address] CASE MGT INIT ASSESon 2019 CASE MGT INIT ASSES HNO ID: [id number] Author: Tami SantiagoRn) YURI Patricio Service: Care Management Author Type: Registered Nurse Type: Care Mgt Initial Assessment Filed: 12/10/2019 10:48 AM Note Text: CARE MANAGEMENT: ASSESSMENT AND DISCHARGE PLAN SERVICE DATE: December 10, 2019 SERVICE TIME: 10:47 AM PRIMARY CARE PHYSICIAN: Dexter Reyes MD ADMISSION STATUS: Inpatient Needs Prior to Discharge: Home Care Order MEDICAL: [facility] Patient/Calibration Specialist Stated Goals: To have reduction in symptoms Health Insurance: Gerrard Carena Issues Impacting Discharge Plan: None Last Discharge Date: 09/11/19 Is this Within the Past 30 days? Last discharge within 30 days: No Advance Directive: Current Advance Directive: Health Care Power of System Architect In Chart: No Keyliner Attempted to Assist with AD Completion: No [...] or Home Care?: Home Health Care Agency([facility]) Equipment Prior to Admission: Wheelchair;Other: [...] Mostly I feel financially burdened by my bzf-gl-dzpnyt expenses for my prescription medication:: 0 - Disagree Somewhat Risk Score: 0 Patient is categorized as: Low risk < 2 Are you interested in bedside delivery of your medications? No Is Patient Psychosocially Complex?: No ASSESSMENT AND PLAN: Medical Needs: Medical Needs: Two or more chronic diseases Psychosocial Needs: Psychosocial Needs: None FREEDOM OF CHOICE EXPLAINED: [place] of Choice Given: Yes(Pt would like to resume hhc with [facility].) POTENTIAL TRANSITION PLANS Home Care Spoke with pt at the bedside. Pt states that he has been staying with his daughter. Active with [facility]. Plan for pt to return home with [facility]. Pt will need wound vac at d/c- script placed on chart to be signed. Family to transport home when medically stable. Will follow. SIGNATURE: Tami Patricio RN PATIENT NAME: Elizabeth Modi DATE: December 10, 2019 TIME: 10:47 AM PAGER/CONTACT #: [phone] Normal [facility] Hemogramon 12-10-2019 Erythrocyte distribution width (RBC) [Ratio] 14.1 % Normal 11.6-14.4 [facility] Comment on above: Performed By: #### P 8 #### [facility] [address] [place] [address] Hematocrit (Bld) [Volume fraction] 38.9 % Low 40.1-51.0 [facility] Comment on above: Performed By: #### P 8 #### [facility] [address] [place], [place] [address] Hemoglobin (Bld) [Mass/Vol] 12.3 g/dL Low 13.7-17.5 [facility] Comment on above: Performed By: #### P 8 #### [facility] [address] [place] [address] MCH (RBC) [Entitic mass] 27.8 pg Normal 25.7-32.2 [facility] Comment on above: Performed By: #### P 8 #### [facility] [address] [place] [address] MCHC (RBC) [Mass/Vol] 31.6 % Low 32.3-36.5 [facility] Comment on above: Performed By: #### P 8 #### [facility] [address] [place] [address] MCV (RBC) [Entitic vol] 88.0 fL Normal 83.2-95.6 [facility] Comment on above: Performed By: #### P 8 #### [facility] [address] [place] [address] Platelet mean volume (Bld) [Entitic vol] 10.5 fL Normal 8.7-12.0 [facility] Comment on above: Performed By: #### P 8 #### [facility] [address] [place], [place] [address] Platelets (Bld) [#/Vol] 285 thou/cmm Normal 141-365 [facility] Comment on above: Performed By: #### P 8 #### [facility] [address] [place], [place] [address] RBC (Bld) [#/Vol] 4.42 mil/cmm Low 4.63-6.08 [facility] Comment on above: Performed By: #### P 8 #### [facility] [address] [place], [place] [address] RDW SD 45.4 fl Normal 36.1-45.8 [facility] Comment on above: Performed By: #### P 8 #### [facility] [address] [place], [place] [address] WBC (Bld) [#/Vol] 9.86 thou/cmm High 4.23-9.07 [facility] Comment on above: Performed By: #### P 8 #### [facility] [address] [place], [place] [address] MDRD GFRon 12-10-2019 GFR/1.73 sq M predicted among non-blacks MDRD (S/P/Bld) [Vol rate/Area] mL/min/{1.73_m2} Normal >60mL/min/1 .73m2 [facility] Comment on above: Result Comment: If t he patient is , multiply the result by 1.210. Performed By: #### M AG #### [facility] [address] [place], [place] [address] PLAN OF CAREon 12-10-2019 PLAN OF CARE HNO ID: [id number] Author: Isac Navarro (Pharmacist) Service: Pharmacy Author [...] medication history: Yes Reconciliation completed? Yes All LIFE SCIENCES TEACHER medications addressed by LIP Additional comments: ? [...] has only been using this once daily LIFE SCIENCES TEACHER Paged Gen Surgery (2123) about these findings Jqfdp-bs-Fqpliybpa Medication List Adjustments: Medication Regimen Changes: Gabapentin [...] Known Allergies Preferred Pharmacy: [facility] Current LIFE SCIENCES TEACHER Medications: Prior to Admission medications as of [...] [facility] Center PROGRESSon 12-10-2019 PROGRESS HNO ID: [id number] Author: Rohan Duran DO Service: Vascular Surgery [...] and on Weekends and Holidays, please page [phone] if in ICU or [phone] if on RNF. Subjective SUBJECTIVE: NAEON. Tolerating [...] 0659 12/10/19 07 - 12/11/19 0659 Shift 7431-1541 6028-7756 2287-1052 24 Hour Total 2728-6035 2043-9477 3088-8941 24 Hour Total INTAKE IV 400 400 OR Crystalloid intake (mL) 300 300 Volume (mL) (lactated ringers infusion) 100 100 Shift Total 400 400 OUTPUT Urine 126 059 4572 Void (ml) 613 272 9352 Shift Total 855 122 0702 Weight (kg) 88.2 88.2 88.2 88.2 88.2 [...] questions or concerns Mon-Fri 6a-5p please page [phone]. After 5pm and on Weekends and Holidays, please page [phone] if in ICU or [phone] if on RNF. [facility] ANES [place] 12-09-2019 ANES POST HNO ID: [id number] Author: Sal Ochoa Service: Anesthesiology Author Type: [...] ANES PREOPon 12-09-2019 ANES PREOP HNO ID: [id number] Author: Sal Ochoa Service: Anesthesiology Author Type: [...] File Prior to Encounter Medication Sig - xcjcc-7t-rai-epa-fish oil-D3 667-250 mg-unit cap Take 1 tablet [...] December 09, 2019 TIME: 9:05 AM CSN: [id number] [facility] BRIEF OP NOTon 12-09-2019 BRIEF OP NOT HNO ID: [id number] Author: Sunny Brito Service: Vascular Surgery Author [...] BRIEF OPERATIVE / PROCEDURE NOTE LOG ID: [id number] SURGERY/PROCEDURE DATE: 12/09/2019 INCISION/PROCEDURE START TIME: 10:54 AM INCISION CLOSE/PROCEDURE END TIME: 11:10 AM SURGEON(S)/PROCEDURALI ST(S) AND EXTRACTOR OPERATOR SOLVENT PROCESS(S): Surgeon(s) and Role: * Ryan Allen - Primary * Sunny Brito - Resident - Assisting Hydraulic Assembler: Mara Godinez SA SURGERY/PROCEDURE(S): irrigation and debridement [...] Gram positive cocci Few Polymorphonuclear leukocytes Normal [facility] Comment on above: Performed By: #### P 8 #### [facility] [address] [place] [address] HISTORY PHYSICALon 0 HISTORY PHYSICAL HNO ID: [id number] Author: Sunny Brito Service: Vascular Surgery Author [...] , Rfl: , 12/08/2019 at Unknown time exgdo-9s-piq-epa-fish oil-D3 667-250 mg-unit cap, Take 1 tablet [...] 09, 2019 TIME: 10:14 AM PAGER/CONTACT #: [phone] [facility] NURSING PROGon 12-09-2019 NURSING PROG HNO ID: [id number] Author: Dakota (Rn) YURI Rodriguez Service: ? Author Type: Registered Nurse Type: Nursing Progress Note Filed: 12/09/2019 12:59 PM Note Text: FBG done by Belkis VALE [facility] PROGRESSon 12-07-2019 PROGRESS HNO ID: [id number] Author: Gordo Figueroa Service: ? Author Type: [...] Outpatient Medications Medication Sig Dispense Refill - qzoll-6d-opu-epa-fish oil-D3 667-250 mg-unit cap Take 1 tablet [...] with us next Monday at the [facility]. Gordo Figueroa MD [facility] CNOVon 12-06-2019 [facility] Office Visit (AGMIL) ELIZABETH MODI ([id number]) 1940 M Date Time Provider Department 12/06/19 [...] Outpatient Medications Medication Sig Dispense Refill - hklhs-4u-ffz-epa-fish oil-D3 667-250 mg-unit cap Take 1 tablet [...] up with us next Monday at the [facility] facility. Gordo Figueroa MD Referring Provider: SELF [200] Allergies As of Date: 12/06/2019 (No Known Allergies) Date Reviewed: 12/06/2019 Reviewed by: Ryan Allen - Fully Assessed Reason for Visit: Peripheral Vascular Disease (PVD) [3545] Cmt: Elizabeth is post op 09/05/19 Revision Rt BKA Primary Visit Diagnosis:PVD (peripheral vascular disease) ([facility]) [I73.9] Other Visit Diagnosis:Below knee amputation ([facility]) [S88.119A] Prescriptions as of 12/06/2019 Sig: OMEGA-3S 667 OR-LZB-TXZ-FISH * Take 1 tablet by mouth once [...] [facility] Beau 12-06-2019 [facility] Telephone (AGGeoloqi) ELIZABETH MDOI ([id number]) 1940 M Date Time Provider Department 12/06/19 RYAN ALLEN During your visit today, we recorded the following information about you: Allergies As of Date: 12/06/2019 (No Known Allergies) Date Reviewed: 12/06/2019 Reviewed by: Gordo Figueroa - Fully Assessed Reason for Visit: Schedule Surgery [1330] Primary Visit Diagnosis:PVD (peripheral vascular disease) ([facility]) [I73.9] Order(s):SURGICAL REQUEST - ELECTIVE [[id number]] Order #: [id number]: 1 HANDP FOR SURGERY [[id number]] Order #: [id number] PRE-PROCEDURE AND PRE-OPERATIVE COVID [SQPOCOVD] Order #: [id number] FUTURE CBC [SQCBC] Order #: [id number] FUTURE BASIC METABOLIC PNL [SQBMP] Order #: [id number] FUTURE PROTHROMBIN TIME/PT [SQPT] Order #: [id number] FUTURE Prescriptions as of 12/06/2019 Sig: OMEGA-3S 667 GV-MIC-AAO-FISH * Take 1 tablet by mouth once [...] (84.369 kg) Outpatient Medications as of 12/09/19: xjzwl-4c-loo-epa-fish oil-D3 667-250 mg-unit cap zinc sulfate (ORAZINC [...] the following basenames: K,HCT Progress Notes ([facility]): Gordo Figueroa MD 12/07/2019 10:39 [...] Outpatient Medications Medication Sig Dispense Refill - ittkp-6b-gnw-epa-fish oil-D3 667-250 mg-unit cap Take 1 tablet [...] up with us next Monday at the [facility] facility. Gordo Figueroa MD [facility] CASE MANAGEMon 09-11-2019 CASE MANAGEM HNO ID: [id number] Author: Tiffanie (Rn) YURI Travis Service: Care Management Author Type: Registered Nurse Type: Care Mgt Progress Note Filed: 09/11/2019 12:54 PM Note Text: CARE MANAGEMENT DISCHARGE NOTE SERVICE DATE: 09/11/2019 SERVICE TIME: 12:42 PM LOS: 21 days Admission Date: 08/21/2019 DISCHARGE ARRANGEMENT (list agency and phone number) Discharge Arrangement: [facility] facility Was an expedited discharge program used?: No Provider Name: [facility] CAREGIVER ASSESSMENT: HANDOFF COMMUNICATION: Handoff to: Primary Care Physician TRANSPORTATION ARRANGEMENTS: Transportation Arrangements: Ambulance/[employer] [employer] Agency and Phone #:: [facility] ( [facility] ) [phone] / [phone] Type of Service: BLS Non-emergency Is Patient Medicaid Pending?: No Discussion of financial coverage occurred with: [employer] Location: [facility] Destination: [facility] Financial Care Management Responsibility: None ADDITIONAL CONTACT RESOURCES: none Auth is obtained and patient has been discharged to [facility]. [employer] is transporting patient via cot at 13:00. Patient notified of discharge. He initially resisted stating he wanted to go to [facility]. Explained that he asked [facility] to have his dtr Angelic makethe decision and she chose [facility]. Patient reluctantly agreed to discharge. Encouraged patient to discuss with staff there if he is not happy with the rehab and still wishes to go to [place]. Patent's dtr Angelic notified. SIGNATURE: Tiffanie Travis RN PATIENT NAME: Elizabeth Modi DATE: September 11, 2019 TIME: 12:41 PM PAGER/CONTACT #: [phone] [facility] CASE MANAGEM HNO ID: [id number] Author: Tiffanie SantiagoRn) YURI Travis Service: Care Management Author Type: Registered Nurse Type: Care Mgt Progress Note Filed: 09/11/2019 9:48 AM Note Text: CARE MANAGEMENT PROGRESS NOTE SERVICE DATE: 09/11/2019 SERVICE TIME: 9:47 AM LOS: 21 days Auth received for [facility]. notified. SIGNATURE: Tiffanie Travis RN PATIENT NAME: Elizabeth Modi DATE: September 11, 2019 TIME: 9:47 AM PAGER/CONTACT #: [phone] [facility] CONSULT PROGon 09-11-2019 CONSULT PROG HNO ID: [id number] Author: Doris Eden Service: Endocrinology Author Type: Physician Type: Consult Progress Note Filed: 09/11/2019 7:56 AM Note Text: ENDOCRINOLOGY CONSULT PROGRESS NOTE SERVICE DATE: 09/11/2019 SERVICE TIME: 7:40 AM Subjective INTERVAL HPI: Pt followed for diabetes mellitus type 2 with complications. 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; [...] September 11, 2019 TIME: 7:56 AM PAGER: [phone] Normal [facility] Glucose Meteron 09-11-2019 Glucose [Mass/Vol] 173 mg/dL High 70-99 [facility] Comment on above: Result Comment: YURI N OTIFIED Performed By: #### G LMET #### [facility] [address] [place] [address] NUTRITIONon 09-11-2019 NUTRITION HNO ID: [id number] Author: Snow Serna Service: Nutrition Therapy Author Type: Registered Dietitian Type: Nutrition Filed: 09/11/2019 12:51 PM Note Text: NUTRITION THERAPY PROGRESS NOTE SERVICE DATE: 09/11/2019 SERVICE TIME: 12:36 PM Nutrition Assessment: Recommended Malnutrition Diagnosis: Moderate Protein-Calorie Malnutrition (09/06/19 1155 : Tanja Byrne RD) Estimated kilocalorie needs: 6223-4124 Calorie Calculation Method: 30-35 kcals/kg Estimated protein [...] September 11, 2019 TIME: 12:36 PM PAGER: [phone] [facility] PLAN OF CAREon 09-11-2019 PLAN OF CARE HNO ID: [id number] Author: Francine Pineda (Pharmacist) Service: Pharmacy Author [...] this time from Discharge Medication List. FRANCINE PINDEA, PHARMACIST September 11, 2019 11:45 AM Pager: [phone] 09/11/2019 11:45 AM Medication List START taking [...] Medical Center PROGRESSon 09-11-2019 PROGRESS HNO ID: [id number] Author: Tom Prescott DO Service: General Surgery [...] questions or concerns Mon-Fri 6a-5p please page [phone]. After 5pm and on Weekends and Holidays, please page [phone] if in ICU or [phone] if on RNF. Subjective SUBJECTIVE: Patient seen and examined this morning. SARATH. States his pain is currently 8/10 in severity, took tylenol mostly for pain control. Dressing taken down this morning, incision examined. Still awaiting precert at [facility]. Continues to do knee exercises, in knee [...] 0659 09/11/19 07 - 09/12/19 0659 Shift 9989-9483 4819-8360 1501-5188 24 Hour Total 5972-8791 9353-4323 5366-7937 24 Hour Total INTAKE PO 120 120 PO 120 120 Shift Total 120 120 OUTPUT Urine 186 843 3724 2120 Void (ml) 973 467 7477 2120 Urine Not Saved. 1 x 1 x # of BMs Number of BMs 1 x 1 x 2 x Shift Total 953 613 2273 2120 Weight (kg) 87.7 87.7 87.6 87.6 [...] C/D/I with luly- healing well, minimal edema-stump rehab liaison in place. SKIN: Skin color, texture, turgor [...] lower extremity angiogram with partial occlusion R RETENTION SPECIALIST, reconstitution at R below knee pop, 2-vessel runoff. Antibiotics stopped 08/23, remains non-septic. 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 09/02 PVR R calf 0.51, R low thigh 0.74. 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 Allen SIGNATURE: Tom Prescott DO PATIENT NAME: Elizabeth Modi DATE: September 11, 2019 TIME: 6:48 AM Vascular AND Thoracic Surgery Service Pager: For questions or concerns Mon-Fri 6a-5p please page [phone]. After 5pm and on Weekends and Holidays, please page [phone] if in ICU or [phone] if on RNF. Normal [facility] THERAPY NTon 09-11-2019 THERAPY NT HNO ID: [id number] Author: Ramón Obrien) Poppy Service: Physical Therapy Author Type: Clinic Lead Type: Therapy (PT/OT/Speech/Resp) Filed: 09/11/2019 12:04 PM Note Text: Attestation signed by Tori SantiagoPt) Santos at 09/12/2019 3:52 PM I reviewed and agree with the documentation corresponding to this therapy visit. SIGNATURE: Tori Graham PT DATE: September 12, 2019 TIME: 3:52 PM Physical Therapy Treatment SERVICE DATE: 09/11/2019 SERVICE TIME: 1036 to 1111 ROOM: [id number] Recommended Discharge Disposition: Acute Rehab Recommended Discharge [...] l;Muscle Weakness (generalized) Interventions Provided: Therapeutic Exercise (34452);Therapeutic Activity (52172) Therapeutic Exercise (70362) Treatment Minutes: 18 1 unit Skilled Intervention(s): [...] and quad sets x10 hour. Therapeutic Activity (26812) Treatment Minutes: 17 1 unit Skilled Intervention(s): [...] Patient Lives With: Self/Alone Assistance Available: time cycle operator Entry To Home: Stairs;With Rail Number [...] CONSULT PROGon 09-10-2019 CONSULT PROG HNO ID: [id number] Author: Doris Eden Service: Endocrinology Author Type: Physician Type: Consult Progress Note Filed: 09/10/2019 7:55 AM Note Text: ENDOCRINOLOGY CONSULT PROGRESS NOTE SERVICE DATE: 09/10/2019 SERVICE TIME: 7:35 AM Subjective INTERVAL HPI: Pt followed for diabetes mellitus type 2 with complications. 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; [...] RRR Abdomen soft, no masses Extremities: has dressing/rehab liaison on R leg stump; dressing on left [...] September 10, 2019 TIME: 7:55 AM PAGER: [phone] Normal [facility] PROGRESSon 09-10-2019 PROGRESS HNO ID: [id number] Author: Jennifer Crooks Service: Vascular Surgery Author [...] 0659 09/10/19 07 - 09/11/19 0659 Shift 6334-9441 2948-9713 1618-7367 24 Hour Total 8142-8042 1795-3884 4137-7131 24 Hour Total INTAKE Shift Total OUTPUT Urine 485 589 9178 Void (ml) 736 107 3421 # of BMs Number of BMs 1 x 1 x 2 x Shift Total 031 108 7236 Weight (kg) 87.7 87.7 87.7 87.7 87.7 [...] lower extremity angiogram with partial occlusion R RETENTION SPECIALIST, reconstitution at R below knee pop, 2-vessel runoff. Antibiotics stopped 08/23, remains non-septic. 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 09/02 PVR R calf 0.51, R low thigh 0.74. 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 ? Plan: -?DIET HEART HEALTHY? 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 Dressing changed re-applied stump rehab liaison today. Knee immobilize q4hr - Pain control - PT/OT?recs:?acute rehab - [facility] ppx - Mobilization as able, out of bed to chair?as tolerated - PAD - continue statin?and aspirin - [facility] Thor[facility] Service Pager: For questions or concerns Mon-Mon 6a-5p please page [phone]. After 5pm and on Weekends and Holidays, please page [phone] if in ICU or [phone] if on RNF. SIGNATURE: Jennifer Crooks MD PATIENT NAME: Elizabeth Modi DATE: September 10, 2019 TIME: 6:28 AM Pager: Mela [facility] THERAPY NTon 09-10-2019 THERAPY NT HNO ID: [id number] Author: Ramón Obrien) Poppy Service: Physical Therapy Author Type: Clinic Lead Type: Therapy (PT/OT/Speech/Resp) Filed: 09/10/2019 12:18 PM Note Text: Attestation signed by Tori SantiagoPt) Santos at 09/11/2019 11:35 AM I reviewed and agree with the documentation corresponding to this therapy visit. SIGNATURE: Tori Graham, PT DATE: September 11, 2019 TIME: 11:35 AM Physical Therapy Treatment SERVICE DATE: 09/10/2019 SERVICE TIME: 1043 to 1108 ROOM: [place] [address] Recommended Discharge Disposition: Acute Rehab Recommended Discharge [...] l;Muscle Weakness (generalized) Interventions Provided: Therapeutic Activity (77180) Therapeutic Activity (18828) Treatment Minutes: 25 2 units Skilled Intervention(s): [...] Patient Lives With: Self/Alone Assistance Available: time cycle operator Entry To Home: Stairs;With Rail Number [...] 09-09-2019 Creatinine [Mass/Vol] 0.73 mg/dL Normal 0.67-1.17 [facility] Comment on above: Result Comment: Use of this assay is not recommended for patients undergoing treatment with phenindione, due to the potential for falsely depressed results. Performed By: #### C BC1 #### [facility] [address] [place], [place] [address] Anion gap [Moles/Vol] 13 mmol/L Normal 8-16 [facility] Comment on above: Performed By: #### C BC1 #### [facility] [address] [place], [place] [address] CO2 [Moles/Vol] 24 mmol/L Normal 21-32 [facility] Comment on above: Performed By: #### C BC1 #### [facility] [address] [place], [place] [address] Urea nitrogen [Mass/Vol] 23 mg/dL High 7-18 [facility] Comment on above: Performed By: #### C BC1 #### [facility] [address] [place], [place] [address] Calcium [Mass/Vol] 8.9 mg/dL Normal 8.5-10.1 [facility] Comment on above: Performed By: #### C BC1 #### [facility] [address] [place], [place] [address] Glucose [Mass/Vol] 79 mg/dL Normal 70-99 [facility] Comment on above: Performed By: #### C BC1 #### [facility] [address] [place], [place] [address] Chloride [Moles/Vol] 100 mmol/L Normal 98-107 [facility] Comment on above: Performed By: #### C BC1 #### [facility] [address] [place], [place] [address] Potassium [Moles/Vol] 4.0 mmol/L Normal 3.5-5.1 [facility] Comment on above: Performed By: #### C BC1 #### [facility] [address] [place], [place] [address] Sodium [Moles/Vol] 133 mmol/L Low 136-145 [facility] Comment on above: Performed By: #### C BC1 #### [facility] [address] [place], [place] [address] CASE MANAGEMon 09-09-2019 CASE MANAGEM HNO ID: [id number] Author: Christina Perez Service: Care Management Author [...] 09, 2019 TIME: 11:40 AM PAGER/CONTACT #: [phone] [facility] CASE MANAGEM HNO ID: [id number] Author: Tami SantiagoRn) YURI Patricio Service: Care Management Author Type: Registered Nurse Type: Care Mgt Progress Note Filed: 09/09/2019 9:15 AM Note Text: CARE MANAGEMENT PROGRESS NOTE SERVICE DATE: 09/09/2019 SERVICE TIME: 9:14 AM LOS: 19 days Chart reviewed. Precert pending for [facility] rehab. Pt will need cot for transport at d/c. Will follow. SIGNATURE: Tami Patricio RN PATIENT NAME: Elizabeth Modi DATE: September 09, 2019 TIME: 9:14 AM PAGER/CONTACT #: [phone] [facility] CONSULT PROGon 09-09-2019 CONSULT PROG HNO ID: [id number] Author: Doris Eden Service: Endocrinology Author Type: Physician Type: Consult Progress Note Filed: 09/09/2019 8:25 AM Note Text: ENDOCRINOLOGY CONSULT PROGRESS NOTE SERVICE DATE: 09/09/2019 SERVICE TIME: 8:00 AM Subjective INTERVAL HPI: Pt followed for diabetes mellitus type 2 with complications. 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; [...] RRR Abdomen soft, no masses Extremities: has dressing/rehab liaison on R leg stump; dressing on left [...] width (RBC) [Ratio] 15.9 % High 11.6-14.4 [facility] Comment on above: Performed By: #### P 8 #### [address] [address] Hematocrit (Bld) [Volume fraction] 27.5 % Low 40.1-51.0 [facility] Comment on above: Performed By: #### P 8 #### [address] [address] Hemoglobin (Bld) [Mass/Vol] 8.8 g/dL Low 13.7-17.5 [facility] Comment on above: Performed By: #### P 8 #### [address] [address] MCH (RBC) [Entitic mass] 29.2 pg Normal 25.7-32.2 [facility] Comment on above: Performed By: #### P 8 #### [address] [address] MCHC (RBC) [Mass/Vol] 32.0 % Low 32.3-36.5 [facility] Comment on above: Performed By: #### P 8 #### [facility] [address] [place] [address] MCV (RBC) [Entitic vol] 91.4 fL Normal 83.2-95.6 [facility] Comment on above: Performed By: #### P 8 #### [facility] [address] [place] [address] Platelet mean volume (Bld) [Entitic vol] 9.6 fL Normal 8.7-12.0 [facility] Comment on above: Performed By: #### P 8 #### [facility] [address] [place] [address] Platelets (Bld) [#/Vol] 505 thou/cmm High 141-365 [facility] Comment on above: Performed By: #### P 8 #### [place] [address] RBC (Bld) [#/Vol] 3.01 mil/cmm Low 4.63-6.08 [facility] Comment on above: Performed By: #### P 8 #### [facility] [address] [place] [address] RDW SD 51.8 fl High 36.1-45.8 [facility] Comment on above: Performed By: #### P 8 #### [facility] [address] [place] [address] WBC (Bld) [#/Vol] 12.29 thou/cmm High 4.23-9.07 [facility] Comment on above: Performed By: #### P 8 #### [facility] [address] [place] [address] MDRD GFRon 09-09-2019 GFR/1.73 sq M predicted among non-blacks MDRD (S/P/Bld) [Vol rate/Area] mL/min/{1.73_m2} Normal >60mL/min/1 .73m2 [facility] Comment on above: Result Comment: If t he patient is , multiply the result by 1.210. Performed By: #### C BC1 #### [facility] [address] [place], [place] [address] Magnesium Bloodon 09-09-2019 Magnesium [Mass/Vol] 1.3 mg/dL Low 1.6-2.6 [facility] Comment on above: Performed By: #### C _ANA #### [facility] [address] [place], [place] [address] PLAN OF CAREon 09-09-2019 PLAN OF CARE HNO ID: [id number] Author: Francine Pineda (Pharmacist) Service: Pharmacy Author Type: Pharmacist Type: Plan of Care Filed: 09/09/2019 11:32 AM Note Text: MEDICATION HISTORY AND MEDICATION RECONCILIATION Patient Name:Nelson Modi : 1940 Source of history:[address]arm[address] records[phone] Medication Nonadherence Identified: No barriers noted- up to date on refills The above information represents the best possible medication history: Yes Reconciliation completed? Yes All [employer] medications addressed by LIP Additional comments: Dbdvb-aq-Wliekjhbh Medication List Adjustments: Medication Regimen Changes: None Medications Added: None Medications Removed: None Short-Term Medications: None Further Clarification Required: None Patient is a 30 day readmission: No Patient Interested in Bedside Delivery: No Time Spent Reviewing Patient's Medications: 40 minutes Allergies: ALLERGIES No Known Allergies Preferred Pharmacy: [facility]- [phone] [id number] Current [employer] Medications: Prior to Admission medications as of [...] Medical Center PROGRESSon 09-09-2019 PROGRESS HNO ID: [id number] Author: Tom Prescott DO Service: General Surgery [...] of pain while wearing knee immobilizer. Stump rehab liaison supplied by [employer]. Denies f/C. Moving the stump without to [...] 0659 09/09/19 0700 - 09/10/19 0659 Shift 2061-4396 9404-4422 3237-9127 24 Hour Total 5347-4742 2792-2203 0202-6433 24 Hour Total INTAKE Shift Total OUTPUT [...] with luly in place, BKA with stump rehab liaison in place SKIN: Skin color, texture, turgor [...] lower extremity angiogram with partial occlusion R RETENTION SPECIALIST, reconstitution at R below knee pop, 2-vessel runoff. Antibiotics stopped 08/23, remains non-septic. 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 09/02 PVR R calf 0.51, R low thigh 0.74. 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 ? Plan: -?DIET HEART HEALTHY? 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 Dressing changed re-applied stump rehab liaison today. Knee immobilize q4hr - Pain control - PT/OT?recs:?acute rehab - [facility] ppx - Mobilization as able, out of bed to chair?as tolerated - PAD - continue statin?and aspirin - Dispo planning: awaiting precert to [facility] Discuss plan with Dr. Devin [...] 0 Phosphate [Mass/Vol] 3.1 mg/dL Normal 2.5-4.9 [facility] Comment on above: Performed By: #### C BC1 #### [place] [id number] THERAPY NTon 09-09-2019 THERAPY NT HNO ID: [id number] Author: Ramón ([place]) Poppy Service: Physical Therapy Author Type: Clinic Lead Type: Therapy (PT/OT/Speech/Resp) Filed: 09/09/2019 11:36 AM Note Text: Attestation signed by Tori SantiagoPtSmitha Graham at 09/09/2019 4:16 PM I reviewed and agree with the documentation corresponding to this therapy visit. SIGNATURE: Tori Graham, PT DATE: September 09, 2019 TIME: 4:16 PM Physical Therapy Treatment SERVICE DATE: 09/09/2019 SERVICE TIME: 1053 to 1119 ROOM: [id number] Recommended Discharge Disposition: Acute Rehab Recommended Discharge [...] l;Muscle Weakness (generalized) Interventions Provided: Therapeutic Exercise (92315);Therapeutic Activity (29261) Therapeutic Exercise (91472) Treatment Minutes: 14 1 unit Skilled Intervention(s): [...] change of knee flexion contracture. Therapeutic Activity (07177) Treatment Minutes: 12 1 unit Skilled Intervention(s): [...] Patient Lives With: Self/Alone Assistance Available: time cycle operator Entry To Home: Stairs;With Rail Number [...] 09-08-2019 Creatinine [Mass/Vol] 0.71 mg/dL Normal 0.67-1.17 [facility] Comment on above: Result Comment: Use of this assay is not recommended for patients undergoing treatment with phenindione, due to the potential for falsely depressed results. Performed By: #### P 8 #### [facility] [address] [place], [place] [address] Anion gap [Moles/Vol] 11 mmol/L Normal 8-16 [facility] Comment on above: Performed By: #### P 8 #### [facility] [address] [place], [place] [address] Calcium [Mass/Vol] 8.7 mg/dL Normal 8.5-10.1 [facility] Comment on above: Performed By: #### P 8 #### [facility] [address] [place], [place] [address] CO2 [Moles/Vol] 24 mmol/L Normal 21-32 [facility] Comment on above: Performed By: #### P 8 #### [facility] [address] [place], [place] [address] Glucose [Mass/Vol] 132 mg/dL High 70-99 [facility] Comment on above: Performed By: #### P 8 #### [facility] [address] [place], [place] [address] Urea nitrogen [Mass/Vol] 17 mg/dL Normal 7-18 [facility] Comment on above: Performed By: #### P 8 #### [facility] [address] [place], [place] [address] Chloride [Moles/Vol] 102 mmol/L Normal 98-107 [facility] Comment on above: Performed By: #### P 8 #### [facility] [address] [place], [place] [address] Potassium [Moles/Vol] 3.9 mmol/L Normal 3.5-5.1 [facility] Comment on above: Performed By: #### P 8 #### [facility] [address] [place], [place] [address] Sodium [Moles/Vol] 133 mmol/L Low 136-145 [facility] Comment on above: Performed By: #### P 8 #### [facility] [address] [place], [place] [address] CONSULT PROGon 09-08-2019 CONSULT PROG HNO ID: [id number] Author: Hermila Gallegos Service: Endocrinology Author Type: Physician Type: Consult Progress Note Filed: 09/08/2019 1:57 PM Note Text: ENDOCRINOLOGY CONSULT PROGRESS NOTE SERVICE DATE: 09/08/2019 SERVICE TIME: 10:20 AM Subjective INTERVAL HPI: Pt followed for diabetes mellitus type 2 with complications. 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; [...] width (RBC) [Ratio] 15.8 % High 11.6-14.4 [facility] Comment on above: Performed By: #### P 8 #### [facility] [address] [place], [place] [address] Hematocrit (Bld) [Volume fraction] 27.0 % Low 40.1-51.0 [facility] Comment on above: Performed By: #### P 8 #### [facility] [address] [place], [place] [address] Hemoglobin (Bld) [Mass/Vol] 8.2 g/dL Low 13.7-17.5 [facility] Comment on above: Performed By: #### P 8 #### [facility] [address] [place], [place] [address] MCH (RBC) [Entitic mass] 27.8 pg Normal 25.7-32.2 [facility] Comment on above: Performed By: #### P 8 #### [facility] [address] [place], [place] [address] MCHC (RBC) [Mass/Vol] 30.4 % Low 32.3-36.5 [facility] Comment on above: Performed By: #### P 8 #### [facility] [address] [place], [place] [address] MCV (RBC) [Entitic vol] 91.5 fL Normal 83.2-95.6 [facility] Comment on above: Performed By: #### P 8 #### [facility] [address] [place], [place] [address] Platelet mean volume (Bld) [Entitic vol] 10.2 fL Normal 8.7-12.0 [facility] Comment on above: Performed By: #### P 8 #### [facility] [address] [place], [place] [address] Platelets (Bld) [#/Vol] 444 thou/cmm High 141-365 [facility] Comment on above: Performed By: #### P 8 #### [facility] [address] [place], [place] [address] RBC (Bld) [#/Vol] 2.95 mil/cmm Low 4.63-6.08 [facility] Comment on above: Performed By: #### P 8 #### [facility] [address] [place], [place] [address] RDW SD 51.5 fl High 36.1-45.8 [facility] Comment on above: Performed By: #### P 8 #### [facility] [address] [place], [place] [address] WBC (Bld) [#/Vol] 12.29 thou/cmm High 4.23-9.07 [facility] Comment on above: Performed By: #### P 8 #### [facility] [address] [place], [place] [address] Magnesium Bloodon 09-08-2019 Magnesium [Mass/Vol] 1.2 mg/dL Low 1.6-2.6 [facility] Comment on above: Performed By: #### C BC1 #### [facility] [address] [place], [place] [address] PROGRESSon 09-08-2019 PROGRESS HNO ID: [id number] Author: Jennifer Crooks Service: Vascular Surgery Author [...] pain moderately well controlled this am. Stump rehab liaison applied by [employer] yesterday. Knee immobilizer in place. Tolerating diet [...] 0659 09/08/19 07 - 09/09/19 0659 Shift 2155-2512 7319-9063 2103-3061 24 Hour Total 1640-9267 1002-2980 4132-3348 24 Hour Total INTAKE Shift Total OUTPUT Urine 839 200 2275 Void (ml) 766 842 2318 # of BMs Stool Incontinence 1 x 1 x Number of BMs 1 x 1 x Shift Total 359 997 5977 Weight (kg) 90 90 90.4 90.4 90.4 [...] lower extremity angiogram with partial occlusion R RETENTION SPECIALIST, reconstitution at R below knee pop, 2-vessel [...] edema, no bleeding. Will change dressing/re-apply stump rehab liaison today. - Pain control - PT/OT?recs:?acute rehab - [facility] ppx - Mobilization as able, out of bed to chair?as tolerated - PAD - continue statin?and aspirin - Dispo planning: awaiting precert to [facility] Addendum: (10:34 AM) Patient seen bedside with attending. Knee immobilizer/and dressing/stump rehab liaison taken down. Surgical incision appears healthy with minimal drainage. No erythema or bleeding. [place] intact. Dressing/stump rehab liaison reapplied. Will continue knee immobilizer q4H and while OOB. ? Vascular AND Thoracic Surgery Service Pager: For questions or concerns Mon-Fri 6a-5p please page [phone]. After 5pm and on Weekends and Holidays, please page [phone] if in ICU or [phone] if on RNF. SIGNATURE: Jennifer Crooks MD PATIENT NAME: Elizabeth Modi DATE: September 08, 2019 TIME: 6:45 AM Pager: Normal [facility] Phosphorus Bloodon 0 Phosphate [Mass/Vol] 3.0 mg/dL Normal 2.5-4.9 [facility] Comment on above: Performed By: #### C BC1 #### [facility] 1 [place], [place] [address] Basic Panelon 09-07-2019 Creatinine [Mass/Vol] 0.84 mg/dL Normal 0.67-1.17 [facility] Comment on above: Result Comment: Use of this assay is not recommended for patients undergoing treatment with phenindione, due to the potential for falsely depressed results. Performed By: #### F ERR #### [address] [address] Anion gap [Moles/Vol] 11 mmol/L Normal 8-16 [facility] Comment on above: Performed By: #### F ERR #### [facility] 1 [place], [place] [address] CO2 [Moles/Vol] 25 mmol/L Normal 21-32 [facility] Comment on above: Performed By: #### F ERR #### [facility] 1 [place], [place] [address] Glucose [Mass/Vol] 147 mg/dL High 70-99 [facility] Comment on above: Performed By: #### F ERR #### [facility] [address] [place], [place] [address] Urea nitrogen [Mass/Vol] 14 mg/dL Normal 7-18 [facility] Comment on above: Performed By: #### F ERR #### [facility] [address] [place], [place] [address] Calcium [Mass/Vol] 9.5 mg/dL Normal 8.5-10.1 [facility] Comment on above: Performed By: #### F ERR #### [facility] [address] [place], [place] [address] Chloride [Moles/Vol] 101 mmol/L Normal 98-107 [facility] Comment on above: Performed By: #### F ERR #### [facility] [address] [place], [place] [address] Potassium [Moles/Vol] 4.2 mmol/L Normal 3.5-5.1 [facility] Comment on above: Performed By: #### F ERR #### [facility] [address] [place], [place] [address] Sodium [Moles/Vol] 133 mmol/L Low 136-145 [facility] Comment on above: Performed By: #### F ERR #### [facility] [address] [place], [place] [address] CONSULT PROGon 09-07-2019 CONSULT PROG HNO ID: [id number] Author: Hermila Gallegos Service: Endocrinology Author Type: Physician Type: Consult Progress Note Filed: 09/07/2019 11:25 AM Note Text: ENDOCRINOLOGY CONSULT PROGRESS NOTE SERVICE DATE: 09/07/2019 SERVICE TIME: 11:22 AM Subjective INTERVAL HPI: Pt followed for diabetes mellitus type 2 with complications. 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; [...] width (RBC) [Ratio] 16.1 % High 11.6-14.4 [facility] Comment on above: Performed By: #### M AG #### [place] [address] Hematocrit (Bld) [Volume fraction] 31.4 % Low 40.1-51.0 [facility] Comment on above: Performed By: #### M AG #### [place] [address] Hemoglobin (Bld) [Mass/Vol] 9.8 g/dL Low 13.7-17.5 [facility] Comment on above: Performed By: #### M AG #### [place] [address] MCH (RBC) [Entitic mass] 28.7 pg Normal 25.7-32.2 [facility] Comment on above: Performed By: #### M AG #### [place] [address] MCHC (RBC) [Mass/Vol] 31.2 % Low 32.3-36.5 [facility] Comment on above: Performed By: #### M AG #### [place] [address] MCV (RBC) [Entitic vol] 92.1 fL Normal 83.2-95.6 [facility] Comment on above: Performed By: #### M AG #### [place] [address] Platelet mean volume (Bld) [Entitic vol] 9.6 fL Normal 8.7-12.0 [facility] Comment on above: Performed By: #### M AG #### [place] [id number] Platelets (Bld) [#/Vol] 519 thou/cmm High 141-365 [facility] Comment on above: Performed By: #### M AG #### [facility] [address] [place] [address] RBC (Bld) [#/Vol] 3.41 mil/cmm Low 4.63-6.08 [facility] Comment on above: Performed By: #### M AG #### [facility] [address] [place] [address] RDW SD 53.3 fl High 36.1-45.8 [facility] Comment on above: Performed By: #### M AG #### [facility] [address] [place] [address] WBC (Bld) [#/Vol] 12.27 thou/cmm High 4.23-9.07 [facility] Comment on above: Performed By: #### M AG #### [facility] [address] [place] [address] Magnesium Bloodon 09-07-2019 Magnesium [Mass/Vol] 1.3 mg/dL Low 1.6-2.6 [facility] Comment on above: Performed By: #### F ERR #### [facility] [address] [place] [address] OPERATIVE NOon 09-07-2019 OPERATIVE NO HNO ID: [id number] Author: Ryan Allen Service: ? Author Type: Physician Type: Operative Report Filed: 09/09/2019 8:10 AM Note Text: [facility] - Operative Report ELIZABETH MODI : 1940 AGE: 79. SEX: M PATIENT TYPE: I HOSP SV: KEENAN LOCATION: [facility] ATTENDING PHYSICIAN: JOVANNY PARMAR CSN NUMBER: [id number] DATE OF SURGERY/PROCEDURE: 09/05/2019 INCISION/PROCEDURE START TIME: 12:28 PM INCISION CLOSE/PROCEDURE END TIME: 2:14 PM PREOPERATIVE DIAGNOSIS: Gangrenous right lower extremity, status post guillotine amputation below the knee. POSTOPERATIVE DIAGNOSIS: Gangrenous right lower extremity, status post guillotine amputation below the knee. SURGEON: Ryan Allen MD, FACS EXTRACTOR OPERATOR SOLVENT PROCESS: Tom Prescott DO, resident, also surgical services asst is Irvin Walker. SURGERY/PROCEDURE: Revision of a [...] tuberosity location and also used the oscillating [place] saw to divide the fibula slightly proximal [...] satisfactory postop condition. Ryan Allen MD, FACS RGN:[id number] Normal [facility] PROGRESSon 09-07-2019 PROGRESS HNO ID: [id number] Author: Jennifer Crooks Service: Vascular Surgery Author [...] 09/06/[address] - 09/07/1965809/07/[address] - 09/08/19 0659 Shift 4249-8761 3720-0955 5768-5440 24 Hour Total 3873-0846 7193-6808 8000-6971 24 Hour Total INTAKE Shift Total OUTPUT Urine 550 762 281 9588 Void (ml) 550 268 100 9814 Shift Total 550 640 444 8484 Weight (kg) 89.3 89.3 90 90 90 [...] lower extremity angiogram with partial occlusion R RETENTION SPECIALIST, reconstitution at R below knee pop, 2-vessel [...] edema, no bleeding Nori consult for stump rehab liaison 09/06 - Pain control - PT/OT recs: acute rehab - [facility] ppx - Mobilization as able, out of bed to chair?as tolerated - PAD - continue statin?and aspirin - Dispo planning: [facility] V[facility] AND Thoracic Surgery Service Pager: For questions or concerns Mon-Mon 6a-5p please page [phone]. After 5pm and on Weekends and Holidays, please page [phone] if in ICU or [phone] if on RNF. SIGNATURE: Jennifer Crooks MD PATIENT NAME: Elizabeth Modi DATE: September 07, 2019 TIME: 6:39 AM Pager: Normal [facility] Phosphorus Bloodon 0 Phosphate [Mass/Vol] 3.0 mg/dL Normal 2.5-4.9 [facility] Comment on above: Performed By: #### C BC1 #### [facility] [address] [place], [place] [address] Basic Panelon 09-06-2019 Creatinine [Mass/Vol] 0.70 mg/dL Normal 0.67-1.17 [facility] Comment on above: Result Comment: Use of this assay is not recommended for patients undergoing treatment with phenindione, due to the potential for falsely depressed results. Performed By: #### C _ANA #### [address] [address] Anion gap [Moles/Vol] 10 mmol/L Normal 8-16 [facility] Comment on above: Performed By: #### C _ANA #### [place] [address] CO2 [Moles/Vol] 24 mmol/L Normal 21-32 [facility] Comment on above: Performed By: #### C _ANA #### [address] [address] Urea nitrogen [Mass/Vol] 14 mg/dL Normal 7-18 [facility] Comment on above: Performed By: #### C _ANA #### [address] [address] Calcium [Mass/Vol] 8.1 mg/dL Low 8.5-10.1 [facility] Comment on above: Performed By: #### C _ANA #### [facility] [address] [place], [place] [address] Glucose [Mass/Vol] 157 mg/dL High 70-99 [facility] Comment on above: Performed By: #### C _ANA #### [address] [address] Chloride [Moles/Vol] 106 mmol/L Normal 98-107 [facility] Comment on above: Performed By: #### C _ANA #### [facility] [address] [place], [place] [address] Potassium [Moles/Vol] 4.4 mmol/L Normal 3.5-5.1 [facility] Comment on above: Performed By: #### C _ANA #### [facility] [address] [place], [place] [address] Sodium [Moles/Vol] 136 mmol/L Normal 136-145 [facility] Comment on above: Performed By: #### C _ANA #### [facility] [address] [place], [place] [address] CASE MGT INIT ASSESon 2019 CASE MGT INIT ASS HNO ID: [id number] Author: Tami SantiagoRn) YURI Patricio Service: Care Management Author Type: Registered Nurse Type: Care Mgt Initial Assessment Filed: 09/06/2019 2:24 PM Note Text: CARE MANAGEMENT PROGRESS NOTE SERVICE DATE: 09/06/2019 SERVICE TIME: 2:23 PM LOS: 16 days Chart reviewed. Plan for [facility] - precert pending. Pt will need cot for transport. Will follow. SIGNATURE: Tami Patricio RN PATIENT NAME: Elizabeth Modi DATE: September 06, 2019 TIME: 2:22 PM PAGER/CONTACT #: [phone] [facility] CONSULT PROGon 09-06-2019 CONSULT PROG HNO ID: [id number] Author: Luke Briones (Gurwinder) S[place] Service: Wound/Ostomy Author Type: Nurse Practitioner Type: Consult Progress Note Filed: 09/06/2019 9:52 AM Note Text: WOUND CARE PROGRESS RETAIL PERSONAL BANKER NOTE SERVICE DATE: 09/06/2019 SERVICE TIME: 09:02 [...] who is seen today with Zee Alba, Wound/hybrid derivatives trader, and presented to hospital with complaints of [...] left heel and seat cushion. Will reorder [id number] mattress as patient is still on regular mattress and turn and reposition every 2 hours or more often. A photo was taken of the patient's wound(s). Photos can be found under the Get Images tab on [employer]. Photos are uploaded by the wound personal carer and may not be immediately available for viewing. Contact the wound and ostomy care department with questions. SIGNATURE: Luke Menard APRN.RETAIL LOAN OFFICER,CWOCN PATIENT NAME: Elizabeth Modi DATE: September 06, 2019 TIME: 9:45 AM CONTACT#: [id number] [facility] CONSULT PROG HNO ID: [id number] Author: Doris Eden Service: Endocrinology Author Type: Physician Type: Consult Progress Note Filed: 09/06/2019 7:59 AM Note Text: ENDOCRINOLOGY CONSULT PROGRESS NOTE SERVICE DATE: 09/06/2019 SERVICE TIME: 7:45 AM Subjective INTERVAL HPI: Pt followed for diabetes mellitus type 2 with complications. 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; [...] width (RBC) [Ratio] 16.2 % High 11.6-14.4 [facility] Comment on above: Performed By: #### F ERR #### [place] [address] Hematocrit (Bld) [Volume fraction] 26.4 % Low 40.1-51.0 [facility] Comment on above: Performed By: #### F ERR #### [place] [address] Hemoglobin (Bld) [Mass/Vol] 8.2 g/dL Low 13.7-17.5 [facility] Comment on above: Performed By: #### F ERR #### [place] [address] MCH (RBC) [Entitic mass] 28.5 pg Normal 25.7-32.2 [facility] Comment on above: Performed By: #### F ERR #### [place] [address] MCHC (RBC) [Mass/Vol] 31.1 % Low 32.3-36.5 [facility] Comment on above: Performed By: #### F ERR #### [place] [address] MCV (RBC) [Entitic vol] 91.7 fL Normal 83.2-95.6 [facility] Comment on above: Performed By: #### F ERR #### [place] [address] Platelet mean volume (Bld) [Entitic vol] 9.7 fL Normal 8.7-12.0 [facility] Comment on above: Performed By: #### F ERR #### [facility] [address] [place] [address] Platelets (Bld) [#/Vol] 410 thou/cmm High 141-365 [facility] Comment on above: Performed By: #### F ERR #### [facility] [address] [place] [address] RBC (Bld) [#/Vol] 2.88 mil/cmm Low 4.63-6.08 [facility] Comment on above: Performed By: #### F ERR #### [facility] [address] [place] [address] RDW SD 53.9 fl High 36.1-45.8 [facility] Comment on above: Performed By: #### F ERR #### [facility] [address] [place] [address] WBC (Bld) [#/Vol] 10.15 thou/cmm High 4.23-9.07 [facility] Comment on above: Performed By: #### F ERR #### [facility] [address] [place] [address] Magnesium Bloodon 09-06-2019 Magnesium [Mass/Vol] 1.5 mg/dL Low 1.6-2.6 [facility] Comment on above: Performed By: #### C _ANA #### [place] [address] NUTRITIONon 09-06-2019 NUTRITION HNO ID: [id number] Author: Tanja Zimmerman) ALEIDA Byrne Service: Nutrition [...] condition;Depletion of fat/muscle stores Estimated kilocalorie needs: 7517-3473 Calorie Calculation Method: 30-35 kcals/kg Estimated protein [...] September 06, 2019 TIME: 9:53 AM PAGER: [phone] [facility] PROGRESSon 09-06-2019 PROGRESS HNO ID: [id number] Author: Tom Prescott DO Service: General Surgery [...] Hopefully takedown dressing tomorrow and evaluate stump. [employer] to visit for stump rehab liaison hopefully tomorrow as well Signature: Ryan Allen MD Date: 09/06/2019 Time: 2:39 PM Vascular Surgery Progress Note SERVICE DATE: 09/06/2019 Vascular AND Thoracic Surgery Service Pager: For questions or concerns Mon-Fri 6a-5p please page [phone]. After 5pm and on Weekends and Holidays, please page [phone] if in ICU or [phone] if on [...] - 09/06/1958 09/06/[address] - 09/07/19 0659 Shift 0171-1377 4132-4842 0911-5241 24 Hour Total 0003-1240 4884-8675 6318-4000 24 Hour Total INTAKE PO 240 240 480 PO 240 240 480 IV 750 100 850 OR Crystalloid intake (mL) 750 750 Volume (mL) (lactated ringers infusion) 100 100 Shift Total 750 730 191 5220 OUTPUT Urine 150 1100 1300 2550 Void [...] lower extremity angiogram with partial occlusion R RETENTION SPECIALIST, reconstitution at R below knee pop, 2-vessel runoff. Antibiotics stopped 08/23, remains non-septic. 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 09/02 PVR R calf 0.51, R low thigh 0.74. 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 Dressing to be taken down tomorrow 09/06 Nori consult for stump rehab liaison 09/06 - Pain control - PT/OT recs: [...] 0 Phosphate [Mass/Vol] 2.9 mg/dL Normal 2.5-4.9 [facility] Comment on above: Performed By: #### M AG #### [place] [address] THERAPY NTon 09-06-2019 THERAPY NT HNO ID: [id number] Author: Briana Babb/Vickie Watson Service: Occupational Therapy Author Type: Occupational Therapist Type: Therapy (PT/OT/Speech/Resp) Filed: 09/06/2019 3:43 PM Note Text: Occupational Therapy Treatment SERVICE DATE: 09/06/2019 SERVICE TIME: 1519 to 1533 ROOM: [place] [address] Recommended Discharge Disposition: Acute Rehab Recommended Discharge [...] feet;General symptoms and signs-other Interventions Provided: Self Retirement Management (19871) Self Retirement Management (64710) Treatment Minutes: 14 1 unit Skilled Intervention(s): [...] On 09/05/19 Reason for Occupational Therapy Consult: OPERATOR TECHNICIAN Relevant Past Medical History: thyroid, HTN, DM, claudication Patient Report: Pt seen bedside, agreeable to OT, no complaints this p.m. 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: time cycle operator Entry To Home: Stairs;With Rail Number [...] [facility] THERAPY NT HNO ID: [id number] Author: Marilyn (Pt) Mark Service: Physical Therapy Author Type: Physical Therapist Type: Therapy (PT/OT/Speech/Resp) Filed: 09/06/2019 12:03 PM Note Text: Physical Therapy Treatment SERVICE DATE: 09/06/2019 SERVICE TIME: 1109 to 1119 ROOM: [place] [address] Recommended Discharge Disposition: Acute Rehab Recommended Discharge [...] l;Muscle Weakness (generalized) Interventions Provided: Therapeutic Activity (05156) Therapeutic Activity (45034) Treatment Minutes: 10 1 unit Skilled Intervention(s): [...] Patient Lives With: Self/Alone Assistance Available: time cycle operator Entry To Home: Stairs;With Rail Number [...] 2019 ABO group Nom (Bld) A Normal [facility] Comment on above: Performed By: #### G LMET #### [place] [address] RH Type Positive Normal [facility] Comment on above: Performed By: #### G LMET #### [facility] [address] [place] [id number] ANES [place] 09-05-2019 ANES POST HNO ID: [id number] Author: Sj Huizar Service: Anesthesiology Author Type: [...] ANES PREOPon 09-05-2019 ANES PREOP HNO ID: [id number] Author: Al Pugh Service: Anesthesiology Author Type: [...] September 05, 2019 TIME: 11:39 AM CSN: [id number] Normal [facility] BRIEF OP NOTon 09-05-2019 BRIEF OP NOT HNO ID: [id number] Author: Tom Prescott DO Service: General Surgery [...] BRIEF OPERATIVE / PROCEDURE NOTE LOG ID: [id number] SURGERY/PROCEDURE DATE: 09/05/2019 INCISION/PROCEDURE START TIME: 12:28 PM INCISION CLOSE/PROCEDURE END TIME: 2:14 PM SURGEON(S)/PROCEDURALI ST(S) AND EXTRACTOR OPERATOR SOLVENT PROCESS(S): Surgeon(s) and Role: * Ryan Allen - Primary * Tom Prescott DO - Resident - Assisting Hydraulic Assembler: Irvin Walker SA SURGERY/PROCEDURE(S): Revision of prior [...] 09-05-2019 Creatinine [Mass/Vol] 0.73 mg/dL Normal 0.67-1.17 [facility] Comment on above: Result Comment: Use of this assay is not recommended for patients undergoing treatment with phenindione, due to the potential for falsely depressed results. Performed By: #### F ERR #### [address] [address] Anion gap [Moles/Vol] 9 mmol/L Normal 8-16 [facility] Comment on above: Performed By: #### F ERR #### [address] [address] Calcium [Mass/Vol] 7.8 mg/dL Low 8.5-10.1 [facility] Comment on above: Performed By: #### F ERR #### [address] [address] CO2 [Moles/Vol] 26 mmol/L Normal 21-32 [facility] Comment on above: Performed By: #### F ERR #### [address] [address] Glucose [Mass/Vol] 137 mg/dL High 70-99 [facility] Comment on above: Performed By: #### F ERR #### [facility] [address] [place], [place] [address] Urea nitrogen [Mass/Vol] 17 mg/dL Normal 7-18 [facility] Comment on above: Performed By: #### F ERR #### [address] [address] Chloride [Moles/Vol] 105 mmol/L Normal 98-107 [facility] Comment on above: Performed By: #### F ERR #### [address] [place], [place] [address] Potassium [Moles/Vol] 4.1 mmol/L Normal 3.5-5.1 [facility] Comment on above: Performed By: #### F ERR #### [facility] [address] [place], [place] [address] Sodium [Moles/Vol] 136 mmol/L Normal 136-145 [facility] Comment on above: Performed By: #### F ERR #### [facility] [address] [place], [place] [address] CONSULT PROGon 09-05-2019 CONSULT PROG HNO ID: [id number] Author: Doris Eden Service: Endocrinology Author Type: Physician Type: Consult Progress Note Filed: 09/05/2019 8:01 AM Note Text: ENDOCRINOLOGY CONSULT PROGRESS NOTE SERVICE DATE: 09/05/2019 SERVICE TIME: 7:50 AM Subjective INTERVAL HPI: Pt followed for diabetes mellitus type 2 with complications. 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; [...] width (RBC) [Ratio] 16.0 % High 11.6-14.4 [facility] Comment on above: Performed By: #### G LMET #### [facility] [address] [place], [place] [address] Hematocrit (Bld) [Volume fraction] 25.4 % Low 40.1-51.0 [facility] Comment on above: Performed By: #### G LMET #### [facility] [address] [place] [address] Hemoglobin (Bld) [Mass/Vol] 8.1 g/dL Low 13.7-17.5 [facility] Comment on above: Performed By: #### G LMET #### [facility] [address] [place] [address] MCH (RBC) [Entitic mass] 29.1 pg Normal 25.7-32.2 [facility] Comment on above: Performed By: #### G LMET #### [facility] [address] [place] [address] MCHC (RBC) [Mass/Vol] 31.9 % Low 32.3-36.5 [facility] Comment on above: Performed By: #### G LMET #### [facility] [address] [place] [address] MCV (RBC) [Entitic vol] 91.4 fL Normal 83.2-95.6 [facility] Comment on above: Performed By: #### G LMET #### [facility] [address] [place] [address] Platelet mean volume (Bld) [Entitic vol] 9.7 fL Normal 8.7-12.0 [facility] Comment on above: Performed By: #### G LMET #### [facility] [address] [place], [place] [address] Platelets (Bld) [#/Vol] 387 thou/cmm High 141-365 [facility] Comment on above: Performed By: #### G LMET #### [facility] [address] [place], [place] [address] RBC (Bld) [#/Vol] 2.78 mil/cmm Low 4.63-6.08 [facility] Comment on above: Performed By: #### G LMET #### [facility] [address] [place], [place] [address] RDW SD 52.4 fl High 36.1-45.8 [facility] Comment on above: Performed By: #### G LMET #### [facility] [address] [place], [place] [address] WBC (Bld) [#/Vol] 9.06 thou/cmm Normal 4.23-9.07 [facility] Comment on above: Performed By: #### G LMET #### [facility] [address] [place], [place] [address] Magnesium Bloodon 09-05-2019 Magnesium [Mass/Vol] 1.3 mg/dL Low 1.6-2.6 [facility] Comment on above: Performed By: #### C _ANA #### [facility] [address] [place], [place] [address] PROGRESSon 09-05-2019 PROGRESS HNO ID: [id number] Author: Francine Roberts Service: Vascular Surgery Author [...] questions or concerns Mon-Fri 6a-5p please page [phone]. After 5pm and on Weekends and Holidays, [...] 0659 09/05/19 07 - 09/06/19 0659 Shift 8879-8220 3360-3705 5847-1913 24 Hour Total 6331-8172 0302-5409 7141-7847 24 Hour Total INTAKE Shift Total OUTPUT Urine 650 444 286 0706 Void (ml) 650 205 889 4808 Shift Total 650 [phone] Weight (kg) 89.4 89.4 89.4 89.4 89.4 [...] lower extremity angiogram with partial occlusion R RETENTION SPECIALIST, reconstitution at R below knee pop, 2-vessel [...] 0 Phosphate [Mass/Vol] 2.9 mg/dL Normal 2.5-4.9 [facility] Comment on above: Performed By: #### M AG #### [facility] [place] [address] Surgical Tissue Examon 09-04 Surgical Tissue Exam Test performed at [place] [address] NAME: ELIZABETH MODI REQUESTING: JOVANNY PARMAR MD [...] mild calcific atherosclerosis. Thrombi are not present. Calibration Specialist sections are submitted as follows: 1 - soft tissue line of resection (black ink); 2-3 - textile machinery sales representative sections of red-pink ischemic process at distal aspect; 4 - textile machinery sales representative sections of vessels; 5 - textile machinery sales representative section of bone following a period of decalcification. KVB:cindi ARENAS M.D. (Electronic signature on file) Signed out: 09/09/2019 14:52 PRINTED: 09/09/2019 Page 1 of 1 Normal [facility] Comment on above: Performed By: #### M AG #### [place] [address] Type and Screenon 09-05-2019 ABO group Nom (Bld) A Normal [facility] Comment on above: Performed By: #### M AG #### [place] [address] Comment See Below Normal [facility] Comment on above: Result Comment: Scre en &/or Xmatch expires in 3 days at 12 midnight. Redraw patient at that time. Performed By: #### M AG #### [facility] [address] [place], [place] [address] RH Type Positive Normal [facility] Comment on above: Performed By: #### M AG #### [facility] [address] [place] [address] Basic Panelon 09-04-2019 Creatinine [Mass/Vol] 0.87 mg/dL Normal 0.67-1.17 [facility] Comment on above: Result Comment: Use of this assay is not recommended for patients undergoing treatment with phenindione, due to the potential for falsely depressed results. Performed By: #### F ERR #### [facility] [address] [place] [address] Anion gap [Moles/Vol] 8 mmol/L Normal 8-16 [facility] Comment on above: Performed By: #### F ERR #### [facility] [address] [place], [place] [address] Calcium [Mass/Vol] 8.0 mg/dL Low 8.5-10.1 [facility] Comment on above: Performed By: #### F ERR #### [facility] [address] [place], [place] [address] CO2 [Moles/Vol] 25 mmol/L Normal 21-32 [facility] Comment on above: Performed By: #### F ERR #### [facility] [address] [place], [place] [address] Glucose [Mass/Vol] 113 mg/dL High 70-99 [facility] Comment on above: Performed By: #### F ERR #### [facility] [address] [place], [place] [address] Urea nitrogen [Mass/Vol] 23 mg/dL High 7-18 [facility] Comment on above: Performed By: #### F ERR #### [facility] [address] [place], [place] [address] Chloride [Moles/Vol] 110 mmol/L High 98-107 [facility] Comment on above: Performed By: #### F ERR #### [facility] [address] [place], [place] [address] Potassium [Moles/Vol] 4.0 mmol/L Normal 3.5-5.1 [facility] Comment on above: Performed By: #### F ERR #### [facility] [address] [place], [place] [address] Sodium [Moles/Vol] 139 mmol/L Normal 136-145 [facility] Comment on above: Performed By: #### F ERR #### [facility] [address] [place], [place] [address] CASE MANAGEMon 09-04-2019 CASE MANAGEM HNO ID: [id number] Author: Tami (Rn) YURI Patricio Service: Care Management Author Type: Registered Nurse Type: Care Mgt Progress Note Filed: 09/04/2019 9:41 AM Note Text: CARE MANAGEMENT PROGRESS NOTE SERVICE DATE: 09/04/2019 SERVICE TIME: 9:36 AM LOS: 14 days Chart reviewed. 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 Plan for [facility] rehab at d/c. Pt will need auth when medically stable and likely cot transport. Will follow. SIGNATURE: Tami Patricio RN PATIENT NAME: Elziabeth Modi DATE: September 04, 2019 TIME: 9:36 AM PAGER/CONTACT #: [phone] Normal [facility] CONSULT PROGon 09-04-2019 CONSULT PROG HNO ID: [id number] Author: Doris Eden Service: Endocrinology Author Type: Physician Type: Consult Progress Note Filed: 09/04/2019 9:41 AM Note Text: ENDOCRINOLOGY CONSULT PROGRESS NOTE SERVICE DATE: 09/04/2019 SERVICE TIME: 9:20 AM Subjective INTERVAL HPI: Pt followed for diabetes mellitus type 2 with complications. 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; [...] width (RBC) [Ratio] 15.8 % High 11.6-14.4 [facility] Comment on above: Performed By: #### F ERR #### [place] [address] Hematocrit (Bld) [Volume fraction] 27.6 % Low 40.1-51.0 [facility] Comment on above: Performed By: #### F ERR #### [place] [address] Hemoglobin (Bld) [Mass/Vol] 8.3 g/dL Low 13.7-17.5 [facility] Comment on above: Performed By: #### F ERR #### [place] [address] MCH (RBC) [Entitic mass] 28.0 pg Normal 25.7-32.2 [facility] Comment on above: Performed By: #### F ERR #### [place] [address] MCHC (RBC) [Mass/Vol] 30.1 % Low 32.3-36.5 [facility] Comment on above: Performed By: #### F ERR #### [place] [address] MCV (RBC) [Entitic vol] 93.2 fL Normal 83.2-95.6 [facility] Comment on above: Performed By: #### F ERR #### [place] [address] Platelet mean volume (Bld) [Entitic vol] 10.0 fL Normal 8.7-12.0 [facility] Comment on above: Performed By: #### F ERR #### [facility] [address] [place], [place] [address] Platelets (Bld) [#/Vol] 371 thou/cmm High 141-365 [facility] Comment on above: Performed By: #### F ERR #### [facility] [address] [place] [address] RBC (Bld) [#/Vol] 2.96 mil/cmm Low 4.63-6.08 [facility] Comment on above: Performed By: #### F ERR #### [facility] [address] [place] [address] RDW SD 51.6 fl High 36.1-45.8 [facility] Comment on above: Performed By: #### F ERR #### [facility] [address] [place] [address] WBC (Bld) [#/Vol] 9.95 thou/cmm High 4.23-9.07 [facility] Comment on above: Performed By: #### F ERR #### [facility] [address] [place] [address] Magnesium Bloodon 09-04-2019 Magnesium [Mass/Vol] 1.8 mg/dL Normal 1.6-2.6 [facility] Comment on above: Performed By: #### M AG #### [facility] [address] [place] [address] PROGRESSon 09-04-2019 PROGRESS HNO ID: [id number] Author: Francine Roberts Service: Vascular Surgery Author [...] questions or concerns Mon-Fri 6a-5p please page [phone]. After 5pm and on Weekends and Holidays, please page [phone] if in ICU or [phone] if on [...] 09/03/[address] - 09/04/1965809/04/19699 - 09/05/19 0659 Shift 0586-9742 6848-4403 5251-9754 24 Hour Total 7402-3617 3547-3186 8282-9051 24 Hour Total INTAKE IV 611 611 Volume (mL) (lactated ringers infusion) 511 511 Volume (mL) (magnesium sulfate in sterile water 4 g iv piggyback) 100 100 Shift Total 611 611 OUTPUT Urine 673 169 1266 Void (ml) 008 563 5667 Shift Total 887 307 7010 Weight (kg) 91.4 91.4 89.4 89.4 89.4 [...] lower extremity angiogram with partial occlusion R RETENTION SPECIALIST, reconstitution at R below knee pop, 2-vessel [...] 0 Phosphate [Mass/Vol] 2.2 mg/dL Low 2.5-4.9 [facility] Comment on above: Performed By: #### C _ANA #### [facility] [address] [place] [address] THERAPY NTon 09-04-2019 THERAPY NT HNO ID: [id number] Author: Marilyn (Pt) Mark Service: Physical Therapy Author Type: Physical Therapist Type: Therapy (PT/OT/Speech/Resp) Filed: 09/04/2019 3:34 PM Note Text: PHYSICAL THERAPY MISSED VISIT SERVICE DATE: 09/04/2019 SERVICE TIME: 1532 to 1532 ROOM: [place] [address] Attempted Treatment. Patient not seen due to [...] ANES [place] 09-03-2019 ANES POST HNO ID: [id number] Author: Dwayne Kerns Service: Anesthesiology Author Type: [...] 02, 2019 TIME: 11:44 PM PAGER/CONTACT #: [phone] Normal [facility] Basic Panelon 09-03-2019 Creatinine [Mass/Vol] 0.90 mg/dL Normal 0.67-1.17 [facility] Comment on above: Result Comment: Use of this assay is not recommended for patients undergoing treatment with phenindione, due to the potential for falsely depressed results. Performed By: #### C BC1 #### [address] [address] Anion gap [Moles/Vol] 7 mmol/L Low 8-16 [facility] Comment on above: Performed By: #### C BC1 #### [address] [address] Calcium [Mass/Vol] 7.9 mg/dL Low 8.5-10.1 [facility] Comment on above: Performed By: #### C BC1 #### [address] [address] CO2 [Moles/Vol] 27 mmol/L Normal 21-32 [facility] Comment on above: Performed By: #### C BC1 #### [facility] [address] [place], [place] [address] Glucose [Mass/Vol] 135 mg/dL High 70-99 [facility] Comment on above: Performed By: #### C BC1 #### [facility] [address] [place], [place] [address] Urea nitrogen [Mass/Vol] 25 mg/dL High 7-18 [facility] Comment on above: Performed By: #### C BC1 #### [facility] [address] [place], [place] [address] Chloride [Moles/Vol] 106 mmol/L Normal 98-107 [facility] Comment on above: Performed By: #### C BC1 #### [facility] [address] [place], [place] [address] Potassium [Moles/Vol] 4.4 mmol/L Normal 3.5-5.1 [facility] Comment on above: Performed By: #### C BC1 #### [facility] [address] [place], [place] [address] Sodium [Moles/Vol] 136 mmol/L Normal 136-145 [facility] Comment on above: Performed By: #### C BC1 #### [facility] [address] [place], [place] [address] CASE MANAGEMon 09-03-2019 CASE MANAGEM HNO ID: [id number] Author: Ammy (Rn) YURI Gutierres Service: ? [...] 03, 2019 TIME: 9:50 AM PAGER/CONTACT #: [phone] [facility] CONSULT PROGon 09-03-2019 CONSULT PROG HNO ID: [id number] Author: Doris Eden Service: Endocrinology Author Type: Physician Type: Consult Progress Note Filed: 09/03/2019 8:39 AM Note Text: ENDOCRINOLOGY CONSULT PROGRESS NOTE SERVICE DATE: 09/03/2019 SERVICE TIME: 8:05 AM Subjective INTERVAL HPI: Pt followed for diabetes mellitus type 2 with complications. 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; [...] width (RBC) [Ratio] 15.4 % High 11.6-14.4 [facility] Comment on above: Performed By: #### M AG #### [address] [address] Hematocrit (Bld) [Volume fraction] 28.1 % Low 40.1-51.0 [facility] Comment on above: Performed By: #### M AG #### [address] [address] Hemoglobin (Bld) [Mass/Vol] 8.9 g/dL Low 13.7-17.5 [facility] Comment on above: Performed By: #### M AG #### [address] [address] MCH (RBC) [Entitic mass] 29.1 pg Normal 25.7-32.2 [facility] Comment on above: Performed By: #### M AG #### [address] [address] MCHC (RBC) [Mass/Vol] 31.7 % Low 32.3-36.5 [facility] Comment on above: Performed By: #### M AG #### [facility] [address] [place] [address] MCV (RBC) [Entitic vol] 91.8 fL Normal 83.2-95.6 [facility] Comment on above: Performed By: #### M AG #### [facility] [address] [place] [address] Platelet mean volume (Bld) [Entitic vol] 9.4 fL Normal 8.7-12.0 [facility] Comment on above: Performed By: #### M AG #### [place] [address] Platelets (Bld) [#/Vol] 410 thou/cmm High 141-365 [facility] Comment on above: Performed By: #### M AG #### [place] [address] RBC (Bld) [#/Vol] 3.06 mil/cmm Low 4.63-6.08 [facility] Comment on above: Performed By: #### M AG #### [place] [address] RDW SD 48.7 fl High 36.1-45.8 [facility] Comment on above: Performed By: #### M AG #### [place] [address] WBC (Bld) [#/Vol] 12.94 thou/cmm High 4.23-9.07 [facility] Comment on above: Performed By: #### M AG #### [place] [address] Magnesium Bloodon 09-03-2019 Magnesium [Mass/Vol] 1.4 mg/dL Low 1.6-2.6 [facility] Comment on above: Performed By: #### M AG #### [place] [address] NURSING PROGon 09-03-2019 NURSING PROG HNO ID: [id number] Author: Kassidy Izquierdo) Vipin, YURI Service: Nursing Author Type: Registered Nurse Type: Nursing Progress Note Filed: 09/03/2019 11:57 AM Note Text: Nursing Progress Note Patient Name: Elizabeth Modi Patient Location: [id number]/[facility]-3 239 __ Daily Note: 1047--report called to Kandi 420Jamil RN. 1113--pt transferred to 422 via chair on RA with Rn and Sr Cotton. Pt remains in chair, chair locked, call light within reach, tele applied. YURI Chau in room. This note was completed by: Kassidy Lew RN [facility] PROGRESSon 09-03-2019 PROGRESS HNO ID: [id number] Author: Francine Roberts Service: Vascular Surgery Author [...] questions or concerns Mon-Mon 6a-5p please page [phone]. After 5pm and on Weekends and Holidays, [...] 0659 09/03/19 07 - 09/04/19 0659 Shift 8622-0390 3372-7075 9113-6206 24 Hour Total 7180-1224 8022-5213 9214-1968 24 Hour Total INTAKE Shift Total OUTPUT [...] lower extremity angiogram with partial occlusion R RETENTION SPECIALIST, reconstitution at R below knee pop, 2-vessel [...] then determination on AKA/BKA - transfer to [facility] today SIGNATURE: Francine Roberts MD PATIENT NAME: Elizabeth Modi DATE: September 03, 2019 TIME: 6:21 AM Vascular AND Thoracic Surgery Service Pager: For questions or concerns Mon-Mon 6a-5p please page [phone]. After 5pm and on Weekends and Holidays, please page [phone] if in ICU or [phone] if on RNF. Normal [facility] Phosphorus Bloodon 0 Phosphate [Mass/Vol] 2.9 mg/dL Normal 2.5-4.9 [facility] Comment on above: Performed By: #### P 8 #### [facility] [place] [id number] THERAPY NTon 09-03-2019 THERAPY NT HNO ID: [id number] Author: Tamiko Babb/Vickie Nur Service: Occupational Therapy Author Type: Occupational Therapist Type: Therapy (PT/OT/Speech/Resp) Filed: 09/03/2019 9:19 AM Note Text: Occupational Therapy Evaluation(Re-Evaluati on) SERVICE DATE: 09/03/2019 SERVICE TIME: 0845 to 0900 ROOM: [place] [address] Recommended Discharge Disposition: Acute Rehab Justification For [...] and signs-other Interventions Provided: Re-evaluation $ Reevaluation (77656) Billed Units: 1 unit Total Timed Code Treatment Minutes: 39 Total Treatment Time (minutes): 15 SUBJECTIVE: Current Hospital Course: Chart reviewed; R femoral endarterectomy 09/02/2019 Reason for Occupational Therapy Consult: OPERATOR TECHNICIAN Relevant Past Medical History: thyroid, HTN, DM, claudication Patient Report: found supine, agreeable to session, moderate pain. "I am so glad I got to the chair." 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: time cycle operator Entry To Home: Stairs;With Rail Number [...] [facility] THERAPY NT HNO ID: [id number] Author: Marilyn (Pt) Mark Service: Physical Therapy Author Type: Physical Therapist Type: Therapy (PT/OT/Speech/Resp) Filed: 09/03/2019 9:12 AM Note Text: Physical Therapy Treatment SERVICE DATE: 09/03/2019 SERVICE TIME: 0830 to 0853 ROOM: [place] [address] Recommended Discharge Disposition: Acute Rehab Recommended Discharge [...] Weakness (generalized) Interventions Provided: Re-evaluation $ Reevaluation (37317) Billed Units: 1 unit Re-evaluation completed due to completion of R femoral endarterectomy Therapeutic Activity (45849) Treatment Minutes: 10 1 unit Skilled Intervention(s): [...] Patient Lives With: Self/Alone Assistance Available: time cycle operator Entry To Home: Stairs;With Rail Number [...] Diabetes: Yes Clinical Indication Post operative right RETENTION SPECIALIST endarterectomy. TECHNIQUE -------- An arterial physiological examination [...] Interpreting physician: Gordo Figueroa MD Final RP Cigarette Carton Sealer: RICHARD Transcriprice Date/Time: Sep 03 2019 9:25A Dictated by : GORDO FIGUEROA MD This examination was interpreted and the report reviewed and electronically signed by: GORDO FIGUEROA MD on Sep 05 2019 9:48AM EST Normal [facility] US VEIN MAPPING LOWER BILon 09-03-2019 US VEIN MAPPING LOWER JIGNA * * *Final Rep ort* * * DATE OF EXAM: Sep 02 2019 10:07PM [facility] 1081 - US VEIN MAPPING LOWER JIGNA [...] lower extremity. Superficial venous measurements as above. Cigarette Carton Sealer: PSCB Transcribe Date/Time: Sep 02 2019 10:28P Dictated by : DWAYNE BURTON MD This examination was interpreted and the report reviewed and electronically signed by: DWAYNE BURTON MD on Sep 02 2019 10:38PM [facility] ANES PREOPon 09-02-2019 ANES PREOP HNO ID: [id number] Author: Tammy Hinson Service: Anesthesiology Author Type: [...] September 02, 2019 TIME: 9:50 AM CSN: [id number] [facility] BRIEF OP NOTon 09-02-2019 BRIEF OP NOT HNO ID: [id number] Author: Francine Roberts Service: Vascular Surgery Author [...] BRIEF OPERATIVE / PROCEDURE NOTE LOG ID: [id number] Patient Name:Elizabeth Modi CSN: [id number] Surgery/Procedure Date: 09/02/2019 Incision/Procedure Start Time: 11:01 AM Incision Close/Procedure End Time: Surgeon(s)/Procedurali st(s) and Fagot Heater Helper(s): Surgeon(s) and Role: * Jovanny Parmar - Primary * Francine Roberts - Resident - Assisting Hydraulic Assembler: Lori Schmid SA Procedure(s): Procedure(s) (LRB): ENDARTERECTOMY [...] 02, 2019 TIME: 12:47 PM PAGER/CONTACT #: [phone] Normal [facility] Basic Panelon 09-02-2019 Creatinine [Mass/Vol] 0.78 mg/dL Normal 0.67-1.17 [facility] Comment on above: Result Comment: Use of this assay is not recommended for patients undergoing treatment with phenindione, due to the potential for falsely depressed results. Performed By: #### M AG #### [place] [address] Anion gap [Moles/Vol] 12 mmol/L Normal 8-16 [facility] Comment on above: Performed By: #### M AG #### [facility] [address] [place], [place] [address] Calcium [Mass/Vol] 8.4 mg/dL Low 8.5-10.1 [facility] Comment on above: Performed By: #### M AG #### [facility] [address] [place], [place] [address] CO2 [Moles/Vol] 24 mmol/L Normal 21-32 [facility] Comment on above: Performed By: #### M AG #### [facility] [address] [place], [place] [address] Urea nitrogen [Mass/Vol] 24 mg/dL High 7-18 [facility] Comment on above: Performed By: #### M AG #### [address] [address] Glucose [Mass/Vol] 148 mg/dL High 70-99 [facility] Comment on above: Performed By: #### M AG #### [facility] [address] [place], [place] [address] Chloride [Moles/Vol] 104 mmol/L Normal 98-107 [facility] Comment on above: Performed By: #### M AG #### [facility] [address] [place], [place] [address] Potassium [Moles/Vol] 4.1 mmol/L Normal 3.5-5.1 [facility] Comment on above: Performed By: #### M AG #### [address] [address] Sodium [Moles/Vol] 136 mmol/L Normal 136-145 [facility] Comment on above: Performed By: #### M AG #### [address] [address] CONSULT PROGon 09-02-2019 CONSULT PROG HNO ID: [id number] Author: Doris Eden Service: Endocrinology Author Type: Physician Type: Consult Progress Note Filed: 09/02/2019 1:35 PM Note Text: ENDOCRINOLOGY CONSULT PROGRESS NOTE SERVICE DATE: 09/02/2019 SERVICE TIME: 1:25 PM Subjective INTERVAL HPI: Pt followed for diabetes mellitus type 2 with complications. 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; [...] width (RBC) [Ratio] 14.9 % High 11.6-14.4 [facility] Comment on above: Performed By: #### C BC1 #### [place] [address] Hematocrit (Bld) [Volume fraction] 33.4 % Low 40.1-51.0 [facility] Comment on above: Performed By: #### C BC1 #### [place] [address] Hemoglobin (Bld) [Mass/Vol] 10.3 g/dL Low 13.7-17.5 [facility] Comment on above: Performed By: #### C BC1 #### [place] [address] MCH (RBC) [Entitic mass] 28.1 pg Normal 25.7-32.2 [facility] Comment on above: Performed By: #### C BC1 #### [place] [address] MCHC (RBC) [Mass/Vol] 30.8 % Low 32.3-36.5 [facility] Comment on above: Performed By: #### C BC1 #### [place] [address] MCV (RBC) [Entitic vol] 91.0 fL Normal 83.2-95.6 [facility] Comment on above: Performed By: #### C BC1 #### [address] [place], [place] [address] Platelet mean volume (Bld) [Entitic vol] 9.7 fL Normal 8.7-12.0 [facility] Comment on above: Performed By: #### C BC1 #### [facility] [address] [place], [place] [address] Platelets (Bld) [#/Vol] 425 thou/cmm High 141-365 [facility] Comment on above: Performed By: #### C BC1 #### [facility] [address] [place], [place] [address] RBC (Bld) [#/Vol] 3.67 mil/cmm Low 4.63-6.08 [facility] Comment on above: Performed By: #### C BC1 #### [facility] [address] [place] [address] RDW SD 47.8 fl High 36.1-45.8 [facility] Comment on above: Performed By: #### C BC1 #### [facility] [address] [place], [place] [address] WBC (Bld) [#/Vol] 9.66 thou/cmm High 4.23-9.07 [facility] Comment on above: Performed By: #### C BC1 #### [place] [id number] Magnesium Bloodon 09-02-2019 Magnesium [Mass/Vol] 1.5 mg/dL Low 1.6-2.6 [facility] Comment on above: Performed By: #### M AG #### [facility] [address] [place] [address] OPERATIVE NOon 09-02-2019 OPERATIVE NO HNO ID: [id number] Author: Jovanny Parmar Service: Vascular Surgery Author Type: Physician Type: Operative Report Filed: 09/30/2019 2:43 PM Note Text: [facility] - Operative Report ELIZABETH MODI : 1940 AGE: 79. SEX: M PATIENT TYPE: I HOSP SVC: KEENAN LOCATION: [facility] ATTENDING PHYSICIAN: JOVANNY PARMAR CSN NUMBER: [id number] DATE OF SURGERY/PROCEDURE: 09/02/2019 INCISION/PROCEDURE START TIME: 12:28 PM INCISION CLOSE/PROCEDURE END TIME: 2:14 PM PREOPERATIVE DIAGNOSIS: Gangrene, right lower extremity. POSTOPERATIVE DIAGNOSIS: Gangrene, right lower extremity. SURGEON: Jovanny Parmar MD EXTRACTOR OPERATOR SOLVENT PROCESS: Francine Roberts. SURGERY/PROCEDURE: Right femoral endarterectomy with [...] recovery in stable condition. Jovanny Parmar MD LM:[id number] /[id number] Normal [facility] PROGRESSon 03-16-2020 PROGRESS HNO ID: [id number] Author: Zack Jenkins Service: Hospital Medicine Author Type: Physician Type: Progress Notes Filed: 09/02/2019 5:22 PM Note Text: DEPARTMENT OF HOSPITAL MEDICINE PROGRESS NOTE SERVICE DATE: 09/02/2019 SERVICE TIME: 9am Hospital Medicine/Primary Attending: Zack Jenkins, DO NIGHT AND WEEKEND COVERAGE: After 7pm please page [phone] CHIEF COMPLAINT: No new complaints SUBJECTIVE: Pt [...] amputation -Angio 08/26 showing partial occlusion R RETENTION SPECIALIST -Vascular and Ortho consults -Plan is for?endarterectomy [...] this note may have been generated using [employer] voice recognition software. Reasonable efforts were made to correct any dictation errors that resulted due to the programming of this software but some may still be present. Normal [facility] PROGRESS HNO ID: [id number] Author: Francine Roberts Service: Vascular Surgery Author [...] questions or concerns Mon-Fri 6a-5p please page [phone]. After 5pm and on Weekends and Holidays, [...] lower extremity angiogram with partial occlusion R RETENTION SPECIALIST, reconstitution at R below knee pop, 2-vessel [...] PT EDon 09-02-2019 PT ED HNO ID: [id number] Author: Chelsea (Rn) Shun Paz RN Service: [...] 0 Phosphate [Mass/Vol] 2.9 mg/dL Normal 2.5-4.9 [facility] Comment on above: Performed By: #### P 8 #### [place] [address] CONSULT PROGon 09-01-2019 CONSULT PROG HNO ID: [id number] Author: Doris Eden Service: Endocrinology Author Type: Physician Type: Consult Progress Note Filed: 09/01/2019 9:12 AM Note Text: ENDOCRINOLOGY CONSULT PROGRESS NOTE SERVICE DATE: 09/01/2019 SERVICE TIME: 9:05 AM Subjective INTERVAL HPI: Pt followed for diabetes mellitus type 2 with complications. 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; [...] width (RBC) [Ratio] 14.9 % High 11.6-14.4 [facility] Comment on above: Performed By: #### M AG #### [place] [address] Hematocrit (Bld) [Volume fraction] 27.1 % Low 40.1-51.0 [facility] Comment on above: Performed By: #### M AG #### [facility] [address] [place] [address] Hemoglobin (Bld) [Mass/Vol] 8.5 g/dL Low 13.7-17.5 [facility] Comment on above: Performed By: #### M AG #### [facility] [address] [place] [address] MCH (RBC) [Entitic mass] 28.1 pg Normal 25.7-32.2 [facility] Comment on above: Performed By: #### M AG #### [facility] [address] [place] [address] MCHC (RBC) [Mass/Vol] 31.4 % Low 32.3-36.5 [facility] Comment on above: Performed By: #### M AG #### [facility] [address] [place] [address] MCV (RBC) [Entitic vol] 89.7 fL Normal 83.2-95.6 [facility] Comment on above: Performed By: #### M AG #### [facility] [address] [place] [address] Platelet mean volume (Bld) [Entitic vol] 9.4 fL Normal 8.7-12.0 [facility] Comment on above: Performed By: #### M AG #### [facility] [address] [place] [address] Platelets (Bld) [#/Vol] 334 thou/cmm Normal 141-365 [facility] Comment on above: Performed By: #### M AG #### [facility] [address] [place] [address] RBC (Bld) [#/Vol] 3.02 mil/cmm Low 4.63-6.08 [facility] Comment on above: Performed By: #### M AG #### [facility] [address] [place] [address] RDW SD 46.4 fl High 36.1-45.8 [facility] Comment on above: Performed By: #### M AG #### [facility] [address] [place], [place] [address] WBC (Bld) [#/Vol] 7.69 thou/cmm Normal 4.23-9.07 [facility] Comment on above: Performed By: #### M AG #### [facility] [address] [place], [place] [address] PROGRESSon 09-01-2019 PROGRESS HNO ID: [id number] Author: Zack Jenkins Service: Hospital Medicine Author Type: Physician Type: Progress Notes Filed: 09/01/2019 4:10 PM Note Text: DEPARTMENT OF HOSPITAL MEDICINE PROGRESS NOTE SERVICE DATE: 09/01/2019 SERVICE TIME: 4:07 PM Hospital Medicine/Primary Attending: Zack Jenkins, DO NIGHT AND WEEKEND COVERAGE: After 7pm please page [phone] CHIEF COMPLAINT: No new complaints SUBJECTIVE: Pt [...] amputation -Angio 08/26 showing partial occlusion R RETENTION SPECIALIST -Vascular and Ortho consults -Plan is for?endarterectomy [...] this note may have been generated using Elivar voice recognition software. Reasonable efforts were made to correct any dictation errors that resulted due to the programming of this software but some may still be present. Normal [facility] PROGRESS HNO ID: [id number] Author: Francine Roberts Service: Vascular Surgery Author [...] questions or concerns Mon-Mon 6a-5p please page [phone]. After 5pm and on Weekends and Holidays, please page [phone] if in ICU or 217 if on [...] 0659 09/01/19 0700 - 09/02/19 0659 Shift 9346-3097 1407-5325 6558-6518 24 Hour Total 6102-7237 8070-2648 6668-4762 24 Hour Total INTAKE Shift Total OUTPUT [...] lower extremity angiogram with partial occlusion R RETENTION SPECIALIST, reconstitution at R below knee pop, 2-vessel [...] THERAPY NTon 09-01-2019 THERAPY NT HNO ID: [id number] Author: Sheridan (Pt) Antwan Service: Physical Therapy Author Type: Physical Therapist Type: Therapy (PT/OT/Speech/Resp) Filed: 09/01/2019 4:02 PM Note Text: Physical Therapy Treatment SERVICE DATE: 09/01/2019 SERVICE TIME: 1520 to 1538 ROOM: [id number] Recommended Discharge Disposition: Acute Rehab Justification For [...] l;Muscle Weakness (generalized) Interventions Provided: Therapeutic Activity (01733) Therapeutic Activity (66276) Treatment Minutes: 18 1 unit Skilled Intervention(s): Functional mobility performed as described below. In EOB sitting for improved strength, ROM, conditioning, function: L ankle DF/PF, glute sets, LAQs, marching, abd/iso add, 2 x 10 reps each; instructed ex technique with short rest breaks needed. Pt education re: rehab process s/p amputation; practiced scooting along EOB for carryover to [id number] transfers, pt education / cues for increased [...] Patient Lives With: Self/Alone Assistance Available: time cycle operator Entry To Home: Stairs;With Rail Number [...] 08-31-2019 Creatinine [Mass/Vol] 0.76 mg/dL Normal 0.67-1.17 [facility] Comment on above: Result Comment: Use of this assay is not recommended for patients undergoing treatment with phenindione, due to the potential for falsely depressed results. Performed By: #### C _ANA #### [address] [address] Anion gap [Moles/Vol] 11 mmol/L Normal 8-16 [facility] Comment on above: Performed By: #### C _ANA #### [address] [address] Calcium [Mass/Vol] 8.2 mg/dL Low 8.5-10.1 [facility] Comment on above: Performed By: #### C _ANA #### [address] [address] CO2 [Moles/Vol] 23 mmol/L Normal 21-32 [facility] Comment on above: Performed By: #### C _ANA #### [address] [address] Glucose [Mass/Vol] 85 mg/dL Normal 70-99 [facility] Comment on above: Performed By: #### C _ANA #### [facility] [address] [place], [place] [address] Urea nitrogen [Mass/Vol] 21 mg/dL High 7-18 [facility] Comment on above: Performed By: #### C _ANA #### [address] [address] Chloride [Moles/Vol] 106 mmol/L Normal 98-107 [facility] Comment on above: Performed By: #### C _ANA #### [facility] [address] [place], [place] [address] Potassium [Moles/Vol] 3.9 mmol/L Normal 3.5-5.1 [facility] Comment on above: Performed By: #### C _ANA #### [facility] [address] [place], [place] [address] Sodium [Moles/Vol] 136 mmol/L Normal 136-145 [facility] Comment on above: Performed By: #### C _ANA #### [facility] [address] [place], [place] [address] CONSULT PROGon 08-31-2019 CONSULT PROG HNO ID: [id number] Author: Doris Eden Service: Endocrinology Author Type: Physician Type: Consult Progress Note Filed: 08/31/2019 8:08 AM Note Text: ENDOCRINOLOGY CONSULT PROGRESS NOTE SERVICE DATE: 08/31/2019 SERVICE TIME: 7:50 AM Subjective INTERVAL HPI: Pt followed for diabetes mellitus type 2 with complications. 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; [...] width (RBC) [Ratio] 14.5 % High 11.6-14.4 [facility] Comment on above: Performed By: #### M AG #### [address] [address] Hematocrit (Bld) [Volume fraction] 31.2 % Low 40.1-51.0 [facility] Comment on above: Performed By: #### M AG #### [address] [address] Hemoglobin (Bld) [Mass/Vol] 10.0 g/dL Low 13.7-17.5 [facility] Comment on above: Performed By: #### M AG #### [facility] [address] [place] [address] MCH (RBC) [Entitic mass] 28.7 pg Normal 25.7-32.2 [facility] Comment on above: Performed By: #### M AG #### [facility] [address] [place] [address] MCHC (RBC) [Mass/Vol] 32.1 % Low 32.3-36.5 [facility] Comment on above: Performed By: #### M AG #### [facility] [address] [place] [address] MCV (RBC) [Entitic vol] 89.4 fL Normal 83.2-95.6 [facility] Comment on above: Performed By: #### M AG #### [facility] [address] [place] [address] Platelet mean volume (Bld) [Entitic vol] 9.4 fL Normal 8.7-12.0 [facility] Comment on above: Performed By: #### M AG #### [facility] [address] [place] [address] Platelets (Bld) [#/Vol] 385 thou/cmm High 141-365 [facility] Comment on above: Performed By: #### M AG #### [facility] [address] [place] [address] RBC (Bld) [#/Vol] 3.49 mil/cmm Low 4.63-6.08 [facility] Comment on above: Performed By: #### M AG #### [facility] [address] [place] [address] RDW SD 45.1 fl Normal 36.1-45.8 [facility] Comment on above: Performed By: #### M AG #### [facility] [address] [place] [address] WBC (Bld) [#/Vol] 8.81 thou/cmm Normal 4.23-9.07 [facility] Comment on above: Performed By: #### M AG #### [address] [place], [place] [address] Magnesium Bloodon 08-31-2019 Magnesium [Mass/Vol] 1.1 mg/dL Low 1.6-2.6 [facility] Comment on above: Performed By: #### M AG #### [facility] [address] [place], [place] [address] PROGRESSon 08-31-2019 PROGRESS HNO ID: [id number] Author: Zack Jenkins Service: Hospital Medicine Author Type: Physician Type: Progress Notes Filed: 08/31/2019 4:57 PM Note Text: DEPARTMENT OF HOSPITAL MEDICINE PROGRESS NOTE SERVICE DATE: 08/31/2019 SERVICE TIME: 4:53 PM Hospital Medicine/Primary Attending: Zack Jenkins, DO NIGHT AND WEEKEND COVERAGE: After 7pm please page [phone] CHIEF COMPLAINT: no new complaints SUBJECTIVE: Pt [...] amputation -Angio 08/26 showing partial occlusion R RETENTION SPECIALIST -Vascular and Ortho consults -Plan is for?endarterectomy [...] units Sub Q BID?? ? Disposition:?Home with [facility]?pending progress and surgery? Plan of care discussed with: Provider, RN, Patient SIGNATURE: Zack Jenkins DO PATIENT NAME: Elizabeth Modi DATE: August 31, 2019 TIME: 4:53 PM PAGER/CONTACT #: Erasmo color pager Disclaimer: Portions of this note may have been generated using Elivar voice recognition software. Reasonable efforts were made to correct any dictation errors that resulted due to the programming of this software but some may still be present. Normal [facility] PROGRESS HNO ID: [id number] Author: Francine Roberts Service: Vascular Surgery Author [...] questions or concerns Mon-Mon 6a-5p please page [phone]. After 5pm and on Weekends and Holidays, [...] 0659 08/31/19 0700 - 09/01/19 0659 Shift 9838-2778 3353-6764 4575-8860 24 Hour Total 5536-1840 8200-2564 9582-9418 24 Hour Total INTAKE Shift Total OUTPUT Urine 500 560 919 0116 Void (ml) 500 587 393 8643 # of BMs Number of BMs 1 x 1 x Shift Total 500 046 331 8241 Weight (kg) 90.9 90.9 89.6 89.6 89.6 [...] on 08/27/2019 - showing partial occlusion R RETENTION SPECIALIST - Right femoral endarterectomy on Monday, then [...] 0 Phosphate [Mass/Vol] 3.3 mg/dL Normal 2.5-4.9 [facility] Comment on above: Performed By: #### C BC1 #### [place] [address] Basic Panelon 08-30-2019 Creatinine [Mass/Vol] 0.80 mg/dL Normal 0.67-1.17 [facility] Comment on above: Result Comment: Use of this assay is not recommended for patients undergoing treatment with phenindione, due to the potential for falsely depressed results. Performed By: #### M AG #### [place] [address] Anion gap [Moles/Vol] 12 mmol/L Normal 8-16 [facility] Comment on above: Performed By: #### M AG #### [place] [id number] Calcium [Mass/Vol] 7.7 mg/dL Low 8.5-10.1 [facility] Comment on above: Performed By: #### M AG #### [facility] [address] [place], [place] [address] CO2 [Moles/Vol] 24 mmol/L Normal 21-32 [facility] Comment on above: Performed By: #### M AG #### [facility] 1 [place], [place] [address] Glucose [Mass/Vol] 70 mg/dL Normal 70-99 [facility] Comment on above: Performed By: #### M AG #### [facility] [address] [place], [place] [address] Urea nitrogen [Mass/Vol] 16 mg/dL Normal 7-18 [facility] Comment on above: Performed By: #### M AG #### [facility] [address] [place], [place] [address] Chloride [Moles/Vol] 106 mmol/L Normal 98-107 [facility] Comment on above: Performed By: #### M AG #### [facility] [address] [place], [place] [address] Potassium [Moles/Vol] 4.0 mmol/L Normal 3.5-5.1 [facility] Comment on above: Performed By: #### M AG #### [facility] [address] [place], [place] [address] Sodium [Moles/Vol] 138 mmol/L Normal 136-145 [facility] Comment on above: Performed By: #### M AG #### [facility] [address] [place], [place] [address] CONSULT PROGon 08-30-2019 CONSULT PROG HNO ID: [id number] Author: Doris Eden Service: Endocrinology Author Type: Physician Type: Consult Progress Note Filed: 08/30/2019 8:57 AM Note Text: ENDOCRINOLOGY CONSULT PROGRESS NOTE SERVICE DATE: 08/30/2019 SERVICE TIME: 8:45 AM Subjective INTERVAL HPI: Pt followed for diabetes mellitus type 2 with complications. 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; [...] width (RBC) [Ratio] 14.1 % Normal 11.6-14.4 [facility] Comment on above: Performed By: #### C BC1 #### [facility] [address] [place], [place] [address] Hematocrit (Bld) [Volume fraction] 28.8 % Low 40.1-51.0 [facility] Comment on above: Performed By: #### C BC1 #### [facility] [address] [place], [place] [address] Hemoglobin (Bld) [Mass/Vol] 9.0 g/dL Low 13.7-17.5 [facility] Comment on above: Performed By: #### C BC1 #### [facility] [address] [place], [place] [address] MCH (RBC) [Entitic mass] 28.3 pg Normal 25.7-32.2 [facility] Comment on above: Performed By: #### C BC1 #### [facility] [address] [place], [place] [address] MCHC (RBC) [Mass/Vol] 31.3 % Low 32.3-36.5 [facility] Comment on above: Performed By: #### C BC1 #### [facility] [address] [place], [place] [address] MCV (RBC) [Entitic vol] 90.6 fL Normal 83.2-95.6 [facility] Comment on above: Performed By: #### C BC1 #### [facility] [address] [place], [place] [address] Platelet mean volume (Bld) [Entitic vol] 9.7 fL Normal 8.7-12.0 [facility] Comment on above: Performed By: #### C BC1 #### [facility] [address] [place], [place] [address] Platelets (Bld) [#/Vol] 388 thou/cmm High 141-365 [facility] Comment on above: Performed By: #### C BC1 #### [facility] [address] [place], [place] [address] RBC (Bld) [#/Vol] 3.18 mil/cmm Low 4.63-6.08 [facility] Comment on above: Performed By: #### C BC1 #### [facility] [address] [place], [place] [address] RDW SD 44.2 fl Normal 36.1-45.8 [facility] Comment on above: Performed By: #### C BC1 #### [facility] [address] [place], [place] [address] WBC (Bld) [#/Vol] 9.52 thou/cmm High 4.23-9.07 [facility] Comment on above: Performed By: #### C BC1 #### [facility] [address] [place] [id number] NUTRITIONon 08-30-2019 NUTRITION HNO ID: [id number] Author: Snow Serna Service: Nutrition Therapy Author Type: Registered Dietitian Type: Nutrition Filed: 08/30/2019 1:41 PM Note Text: NUTRITION THERAPY PROGRESS NOTE SERVICE DATE: 08/30/2019 SERVICE TIME: 11:33 AM Nutrition Assessment: Recommended Malnutrition Diagnosis: Moderate Protein-Calorie Malnutrition (08/22/19 1436 : Keturah (Plant Operations Manager) Valery) Estimated kilocalorie needs: 2269-9878 Calorie Calculation Method: 30-35 kcals/kg Estimated protein [...] August 30, 2019 TIME: 11:33 AM PAGER: [phone] Normal [facility] PROGRESSon 08-30-2019 PROGRESS HNO ID: [id number] Author: Zack Jenkins Service: Hospital Medicine Author Type: Physician Type: Progress Notes Filed: 08/30/2019 5:31 PM Note Text: DEPARTMENT OF HOSPITAL MEDICINE PROGRESS NOTE SERVICE DATE: 08/30/2019 SERVICE TIME: 5:24 PM Hospital Medicine/Primary Attending: Zack Jenkins, DO NIGHT AND WEEKEND COVERAGE: After 7pm please page [phone] CHIEF COMPLAINT: R lower leg pain SUBJECTIVE: [...] amputation -Angio 08/26 showing partial occlusion R RETENTION SPECIALIST -Vascular and Ortho consults -Plan is for [...] units Sub Q BID?? ? Disposition:?Home with [facility]?pending progress and surgery? Plan of care discussed with: Provider, RN, Patient SIGNATURE: Zack Jenkins DO PATIENT NAME: Elizabeth Modi DATE: August 30, 2019 TIME: 5:24 PM PAGER/CONTACT #: Erasmo color pager Disclaimer: Portions of this note may have been generated using Elivar voice recognition software. Reasonable efforts were made to correct any dictation errors that resulted due to the programming of this software but some may still be present. Normal [facility] PROGRESS HNO ID: [id number] Author: Francine Roberts Service: General Surgery Author [...] questions or concerns Mon-Fri 6a-5p please page [phone]. After 5pm and on Weekends and Holidays, please page [phone] if in ICU or [phone] if on [...] - 08/30/1965808/30/19 07 - 08/31/19 0659 Shift 9192-1199 9185-2825 0744-3091 24 Hour Total 1792-2028 1324-7794 7156-2033 24 Hour Total INTAKE IV 1100 1100 [...] on 08/27/2019 - showing partial occlusion R RETENTION SPECIALIST - Endarterectomy on Monday, then determination on [...] THERAPY NTon 08-30-2019 THERAPY NT HNO ID: [id number] Author: Tanja Drummond Service: Physical Therapy Author Type: Physical Therapist Type: Therapy (PT/OT/Speech/Resp) Filed: 08/30/2019 5:00 PM Note Text: Physical Therapy Treatment SERVICE DATE: 08/30/2019 SERVICE TIME: 1415 to 1500 ROOM: [id number] Recommended Discharge Disposition: Acute Rehab Recommended Discharge [...] l;Muscle Weakness (generalized) Interventions Provided: Therapeutic Exercise (06221);Therapeutic Activity (10952) Therapeutic Exercise (68880) Treatment Minutes: 25 2 units Skilled Intervention(s): Patient completed general strengthening exercises in supine, sitting (ankle pump, quad set, gluteal set, heel slide, hip abd/add, straight leg raise, long arc quad, short arc quad, hip adductor squeeze, assisted bridging) x 15-20 reps bilateral lower extremity, with min assist, with min verbal/tactile cues for optimal muscle recruitment, muscle activation, and muscle strengthening. Therapeutic Activity (60090) Treatment Minutes: 15 1 unit Skilled Intervention(s): [...] Patient Lives With: Self/Alone Assistance Available: time cycle operator Entry To Home: Stairs;With Rail Number [...] 08-29-2019 Creatinine [Mass/Vol] 0.80 mg/dL Normal 0.67-1.17 [facility] Comment on above: Result Comment: Use of this assay is not recommended for patients undergoing treatment with phenindione, due to the potential for falsely depressed results. Performed By: #### C _ANA #### [place] [address] Anion gap [Moles/Vol] 9 mmol/L Normal 8-16 [facility] Comment on above: Performed By: #### C _ANA #### [place] [address] CO2 [Moles/Vol] 27 mmol/L Normal 21-32 [facility] Comment on above: Performed By: #### C _ANA #### [address] [address] Glucose [Mass/Vol] 83 mg/dL Normal 70-99 [facility] Comment on above: Performed By: #### C _ANA #### [address] [address] Urea nitrogen [Mass/Vol] 14 mg/dL Normal 7-18 [facility] Comment on above: Performed By: #### C _ANA #### [facility] [address] [place] [address] Calcium [Mass/Vol] 7.9 mg/dL Low 8.5-10.1 [facility] Comment on above: Performed By: #### C _ANA #### [facility] [address] [place] [address] Chloride [Moles/Vol] 106 mmol/L Normal 98-107 [facility] Comment on above: Performed By: #### C _ANA #### [facility] [address] [place] [address] Potassium [Moles/Vol] 4.0 mmol/L Normal 3.5-5.1 [facility] Comment on above: Performed By: #### C _ANA #### [facility] [address] [place] [address] Sodium [Moles/Vol] 138 mmol/L Normal 136-145 [facility] Comment on above: Performed By: #### C _ANA #### [facility] [address] [place] [address] CASE MANAGEMon 08-29-2019 CASE MANAGEM HNO ID: [id number] Author: Tami SantiagoRn) YURI Patricio Service: Care Management Author Type: Registered Nurse Type: Care Mgt Progress Note Filed: 08/29/2019 11:27 AM Note Text: CARE MANAGEMENT PROGRESS NOTE SERVICE DATE: 08/29/2019 SERVICE TIME: 11:27 AM LOS: 8 days Chart reviewed. 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 Referral to [facility]- pt will need precert. Will follow clinical progress. SIGNATURE: Tami Patricio RN PATIENT NAME: Elizabeth Modi DATE: August 29, 2019 TIME: 11:27 AM PAGER/CONTACT #: [phone] [facility] CONSULT PROGon 08-29-2019 CONSULT PROG HNO ID: [id number] Author: Luke Briones (Gurwinder) Sailaja Service: Wound/Ostomy Author Type: Nurse Practitioner Type: Consult Progress Note Filed: 08/29/2019 3:36 PM Note Text: WOUND CARE CONSULT RETAIL PERSONAL BANKER NOTE SERVICE DATE: 08/29/2019 SERVICE TIME: 14:45 TIME SPENT (minutes): 30 REASON FOR CONSULT: Reevaluation of right leg wounds and overall skin check. CHIEF COMPLAINT: Recent surgery to right leg with more coming on Monday Subjective HISTORY OF PRESENT ILLNESS: Mr. Modi is a 79 year old male who is seen today with Leila Goel, Wound/hybrid derivatives trader, and presented to hospital with complaints of [...] on Monday09/02/19 for right femoral endartectomy. Obtained truvClaro heel boot for patient's left heel and seat cushion. Will order patient [id number] mattress and turn and reposition every 2 hours or more often. A photo was taken of the patient's wound(s). Photos can be found under the Get Images tab on [employer]. Photos are uploaded by the wound personal carer and may not be immediately available for viewing. Contact the wound and ostomy care department with questions. SIGNATURE: Luke Menard APRN.GURWINDER,CWOCN PATIENT NAME: Elizabeth Modi DATE: August 29, 2019 TIME: 3:23 PM CONTACT#: [id number] [facility] CONSULT PROG HNO ID: [id number] Author: Doris Eden Service: Endocrinology Author Type: Physician Type: Consult Progress Note Filed: 08/29/2019 8:38 AM Note Text: ENDOCRINOLOGY CONSULT PROGRESS NOTE SERVICE DATE: 08/29/2019 SERVICE TIME: 8:25 AM Subjective INTERVAL HPI: Pt followed for diabetes mellitus type 2 with complications. 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; [...] width (RBC) [Ratio] 14.1 % Normal 11.6-14.4 [facility] Comment on above: Performed By: #### F ERR #### [facility] [address] [place], [place] [address] Hematocrit (Bld) [Volume fraction] 27.5 % Low 40.1-51.0 [facility] Comment on above: Performed By: #### F ERR #### [facility] [address] [place], [place] [address] Hemoglobin (Bld) [Mass/Vol] 8.8 g/dL Low 13.7-17.5 [facility] Comment on above: Performed By: #### F ERR #### [facility] [address] [place], [place] [address] MCH (RBC) [Entitic mass] 29.0 pg Normal 25.7-32.2 [facility] Comment on above: Performed By: #### F ERR #### [facility] [address] [place], [place] [address] MCHC (RBC) [Mass/Vol] 32.0 % Low 32.3-36.5 [facility] Comment on above: Performed By: #### F ERR #### [facility] [address] [place] [address] MCV (RBC) [Entitic vol] 90.8 fL Normal 83.2-95.6 [facility] Comment on above: Performed By: #### F ERR #### [facility] [address] [place], [place] [address] Nucleated RBC (Bld) [#/Vol] 0.02 thou/cmm High 0.00-0.01 [facility] Comment on above: Performed By: #### F ERR #### [facility] [address] [place], [place] [address] Nucleated RBC/100 WBC (Bld) [Ratio] 0.2 % Normal 0.0-0.2 [facility] Comment on above: Performed By: #### F ERR #### [facility] [address] [place], [place] [address] Platelet mean volume (Bld) [Entitic vol] 9.5 fL Normal 8.7-12.0 [facility] Comment on above: Performed By: #### F ERR #### [facility] 1 [place], [place] [address] Platelets (Bld) [#/Vol] 430 thou/cmm High 141-365 [facility] Comment on above: Performed By: #### F ERR #### [facility] 1 [place] [id number] RBC (Bld) [#/Vol] 3.03 mil/cmm Low 4.63-6.08 [facility] Comment on above: Performed By: #### F ERR #### [facility] 1 [place] [id number] RDW SD 45.0 fl Normal 36.1-45.8 [facility] Comment on above: Performed By: #### F ERR #### [facility] 1 [place] [id number] WBC (Bld) [#/Vol] 10.45 thou/cmm High 4.23-9.07 [facility] Comment on above: Performed By: #### F ERR #### [facility] 1 [place] [address] Magnesium Bloodon 08-29-2019 Magnesium [Mass/Vol] 1.6 mg/dL Normal 1.6-2.6 [facility] Comment on above: Performed By: #### M AG #### [facility] [address] [place] [address] PROGRESSon 08-29-2019 PROGRESS HNO ID: [id number] Author: Zack Jnekins Service: Hospital Medicine Author Type: Physician Type: Progress Notes Filed: 08/29/2019 5:59 PM Note Text: DEPARTMENT OF HOSPITAL MEDICINE PROGRESS NOTE SERVICE DATE: 08/29/2019 SERVICE TIME: 5:56 PM Hospital Medicine/Primary Attending: Zack Jenkins, DO NIGHT AND WEEKEND COVERAGE: After 7pm please page [phone] CHIEF COMPLAINT: no new complaints SUBJECTIVE: Pt [...] amputation -Angio 08/26 showing partial occlusion R RETENTION SPECIALIST -Vascular and Ortho consults -Plan is for [...] Sub Q BID ? Disposition: Home with [facility] pending progress and surgery Plan of care discussed with: Provider, RN, Patient SIGNATURE: Zack Jenkins DO PATIENT NAME: Elizabeth Modi DATE: August 29, 2019 TIME: 5:56 PM PAGER/CONTACT #: Team color pager Disclaimer: Portions of this note may have been generated using Elivar voice recognition software. Reasonable efforts were made to correct any dictation errors that resulted due to the programming of this software but some may still be present. Normal [facility] PROGRESS HNO ID: [id number] Author: Tom Prescott DO Service: General Surgery [...] questions or concerns Mon-Fri 6a-5p please page . After 5pm and on Weekends and Holidays, [...] 0659 08/29/19 07 - 08/30/19 0659 Shift 3325-0116 2263-5623 8216-4873 24 Hour Total [phone] 4903-4436 24 Hour Total INTAKE Shift Total OUTPUT [...] able, out of bed to chair - [facility] - Further care per primary Assessment and plan discussed with attending Tom Prescott DO, MBA PGY-1 General Surgery Resident 08/29/2019 10:01 AM Pager below: Vascular AND Thoracic Surgery Service Pager: For questions or concerns Mon-Mon 6a-5p please page [phone]. After 5pm and on Weekends and Holidays, please page [phone] if in ICU or [phone] if on RNF. Normal [facility] THERAPY NTon 08-29-2019 THERAPY NT HNO ID: [id number] Author: Tanja SantiagoPtSmitha Drummond Service: Physical Therapy Author Type: Physical Therapist Type: Therapy (PT/OT/Speech/Resp) Filed: 08/29/2019 3:21 PM Note Text: Physical Therapy Treatment SERVICE DATE: 08/29/2019 SERVICE TIME: 1138 to 1208 ROOM: [id number] Recommended Discharge Disposition: Acute Rehab Recommended Discharge [...] l;Muscle Weakness (generalized) Interventions Provided: Therapeutic Exercise (60102);Therapeutic Activity (42949) Therapeutic Exercise (37966) Treatment Minutes: 15 1 unit Skilled Intervention(s): [...] extremity general strengthening therapeutic exercise. Therapeutic Activity (20137) Treatment Minutes: 10 1 unit Skilled Intervention(s): [...] Patient Lives With: Self/Alone Assistance Available: time cycle operator Entry To Home: Stairs;With Rail Number [...] 08-28-2019 Creatinine [Mass/Vol] 0.91 mg/dL Normal 0.67-1.17 [facility] Comment on above: Result Comment: Use of this assay is not recommended for patients undergoing treatment with phenindione, due to the potential for falsely depressed results. Performed By: #### C _ANA #### [address] [address] Anion gap [Moles/Vol] 10 mmol/L Normal 8-16 [facility] Comment on above: Performed By: #### C _ANA #### [address] [address] CO2 [Moles/Vol] 27 mmol/L Normal 21-32 [facility] Comment on above: Performed By: #### C _ANA #### [facility] 1 [place], [place] [address] Urea nitrogen [Mass/Vol] 14 mg/dL Normal 7-18 [facility] Comment on above: Performed By: #### C _ANA #### [address] [address] Calcium [Mass/Vol] 7.5 mg/dL Low 8.5-10.1 [facility] Comment on above: Performed By: #### C _ANA #### [address] [address] Glucose [Mass/Vol] 108 mg/dL High 70-99 [facility] Comment on above: Performed By: #### C _ANA #### [facility] 1 [place], [place] [address] Chloride [Moles/Vol] 105 mmol/L Normal 98-107 [facility] Comment on above: Performed By: #### C _ANA #### [facility] 1 [place], [place] [address] Potassium [Moles/Vol] 4.1 mmol/L Normal 3.5-5.1 [facility] Comment on above: Performed By: #### C _ANA #### [facility] 1 [place], [place] [address] Sodium [Moles/Vol] 138 mmol/L Normal 136-145 [facility] Comment on above: Performed By: #### C _ANA #### [facility] 1 [place], [place] [address] CASE MANAGEMon 08-28-2019 CASE MANAGEM HNO ID: [id number] Author: Tami SantiagoRn) YURI Patricio Service: Care Management Author Type: Registered Nurse Type: Care Mgt Progress Note Filed: 08/28/2019 1:57 PM Note Text: CARE MANAGEMENT PROGRESS NOTE SERVICE DATE: 08/28/2019 SERVICE TIME: 1:56 PM LOS: 7 days Chart reviewed. 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 Referral to [facility]- pt will need precert. Will follow clinical progress. SIGNATURE: Tami Patricio RN PATIENT NAME: Elizabeth Modi DATE: August 28, 2019 TIME: 1:56 PM PAGER/CONTACT #: [phone] [facility] CONSULT PROGon 08-28-2019 CONSULT PROG HNO ID: [id number] Author: Doris Eden Service: Endocrinology Author Type: Physician Type: Consult Progress Note Filed: 08/28/2019 8:31 AM Note Text: ENDOCRINOLOGY CONSULT PROGRESS NOTE SERVICE DATE: 08/28/2019 SERVICE TIME: 8:15 AM Subjective INTERVAL HPI: Pt followed for diabetes mellitus type 2 with complications. 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; [...] August 28, 2019 TIME: 8:31 AM PAGER: [phone] Normal [facility] Hemogram/Diffon 08-28-2019 Abs Immature Grans 0.21 thou/cmm High 0.00-0.05 [facility] Comment on above: Performed By: #### G LMET #### [facility] [address] [place] [address] Abs Neut (ANC) 7.25 thou/cmm High 1.78-5.38 [facility] Comment on above: Performed By: #### G LMET #### [facility] [address] [place] [address] Abs. Baso 0.02 thou/cmm Normal 0.01-0.08 [facility] Comment on above: Performed By: #### G LMET #### [facility] [address] [place] [address] Abs. Garden 0.96 thou/cmm High 0.30-0.82 [facility] Comment on above: Performed By: #### G LMET #### [place] [address] Basophils/100 WBC (Bld) 0.2 % Normal [facility] Comment on above: Performed By: #### G LMET #### [place] [address] Eosinophils (Bld) [#/Vol] 0.16 thou/cmm Normal 0.04-0. 54 [facility] Comment on above: Performed By: #### G LMET #### [place] [address] Eosinophils/100 WBC (Bld) 1.5 % Normal [facility] Comment on above: Performed By: #### G LMET #### [place] [address] Erythrocyte distribution width (RBC) [Ratio] 13.4 % Normal 11.6-14.4 [facility] Comment on above: Performed By: #### G LMET #### [place] [address] Hematocrit (Bld) [Volume fraction] 29.8 % Low 40.1-51.0 [facility] Comment on above: Performed By: #### G LMET #### [facility] 1 [place], [place] [address] Hemoglobin (Bld) [Mass/Vol] 9.5 g/dL Low 13.7-17.5 [facility] Comment on above: Performed By: #### G LMET #### [facility] 1 [place], [place] [address] Immature Grans 2.00 % Normal [facility] Comment on above: Performed By: #### G LMET #### [facility] [address] [place] [address] Lymphocytes (Bld) [#/Vol] 1.82 thou/cmm Normal 0.84-2. 85 [facility] Comment on above: Performed By: #### G LMET #### [facility] [address] [place] [address] Lymphocytes/100 WBC (Bld) 17.5 % Normal [facility] Comment on above: Performed By: #### G LMET #### [facility] [address] [place] [address] MCH (RBC) [Entitic mass] 28.4 pg Normal 25.7-32.2 [facility] Comment on above: Performed By: #### G LMET #### [place] [address] MCHC (RBC) [Mass/Vol] 31.9 % Low 32.3-36.5 [facility] Comment on above: Performed By: #### G LMET #### [facility] [address] [place] [address] MCV (RBC) [Entitic vol] 89.2 fL Normal 83.2-95.6 [facility] Comment on above: Performed By: #### G LMET #### [facility] [address] [place] [address] Monocytes/100 WBC (Bld) 9.2 % Normal [facility] Comment on above: Performed By: #### G LMET #### [facility] [address] [place] [address] Platelet mean volume (Bld) [Entitic vol] 9.6 fL Normal 8.7-12.0 [facility] Comment on above: Performed By: #### G LMET #### [facility] 1 [place], [place] [address] Platelets (Bld) [#/Vol] 390 thou/cmm High 141-365 [facility] Comment on above: Performed By: #### G LMET #### [facility] 1 [place], [place] [address] RBC (Bld) [#/Vol] 3.34 mil/cmm Low 4.63-6.08 [facility] Comment on above: Performed By: #### G LMET #### [facility] 1 [place], [place] [address] RDW SD 43.3 fl Normal 36.1-45.8 [facility] Comment on above: Performed By: #### G LMET #### [facility] [address] [place] [address] Seg Neutrophil 69.6 % Normal [facility] Comment on above: Performed By: #### G LMET #### [facility] [address] [place], [place] [address] WBC (Bld) [#/Vol] 10.42 thou/cmm High 4.23-9.07 [facility] Comment on above: Performed By: #### G LMET #### [facility] [address] [place] [address] Magnesium Bloodon 08-28-2019 Magnesium [Mass/Vol] 1.1 mg/dL Low 1.6-2.6 [facility] Comment on above: Performed By: #### F ERR #### [facility] [address] [place] [address] NM CARDIAC PERF STRESS/PHARM on 08-28-2019 NM CARDIAC PERF STRESS/PHARM * * *Final Report* * * DATE OF EXAM: Aug 28 2019 9:30AM [facility] 0006 - NM CARDIAC PERF STRESS/PHARM [...] Ordering physician: GOLD Estes Specialist: Tawana Larson Fagot Heater Helper: Libertad Rose Stress ECG interpreting physician: Shira [...] for age. The double product [place] [address]. Peak heart rate was 98 bpm and [...] index (CRI): 0.51 Rate Pressure Product (RPP): 12805 Reason for test termination: End of Protocol. [...] chest sx during test Final ------ Stress Youth Probation Officer Report: [facility] Date of service: 08/28/2019 9:30:00 AM Supervising physician: Shira Zuleta MD PATIENT: Name: ELIZABETH MODI Age: 79 years Gender: M The supervising physician was present during the stress procedure. Final Cigarette Carton Sealer: RICHARD Transcribe Date/Time: Aug 28 2019 9:30A Dictated by : IGNACIA MENDEZ MD This examination was interpreted and the report reviewed and electronically signed by: IGNACIA MENDEZ MD on Aug 28 2019 3:54PM EST Normal [facility] NURSING PROGon 08-28-2019 NURSING PROG HNO ID: [id number] Author: Tawana SantiagoRn) YURI Larson Service: Cardiovascular Testing Author Type: Registered Nurse Type: Nursing Progress Note Filed: 08/28/2019 2:58 PM Note Text: Dr Zuleta notified of labs prior to testing.Lexiscan Nuclear Stress Test procedure explained. Patient verbalized understanding and test completed with post nuclear scan to follow. Normal [facility] OPERATIVE NOon 08-28-2019 OPERATIVE NO HNO ID: [id number] Author: Jovanny Parmar Service: Vascular Surgery Author Type: Physician Type: Operative Report Filed: 08/29/2019 3:01 PM Note Text: [facility] - Operative Report ELIZABETH MODI : 1940 AGE: 79. SEX: M PATIENT TYPE: I HOSP SVC: INT LOCATION: [facility] ATTENDING PHYSICIAN: Jovanny Parmar MD CSN NUMBER: [id number] DATE OF SURGERY/PROCEDURE: 08/27/2019 INCISION/PROCEDURE START TIME: 10:01 AM INCISION CLOSE/PROCEDURE END TIME: 10:55 AM PREOPERATIVE DIAGNOSIS: Gangrene. POSTOPERATIVE DIAGNOSIS: Gangrene. SURGEON: Jovanny Parmar MD EXTRACTOR OPERATOR SOLVENT PROCESS: Tom Prescott. SURGERY/PROCEDURE: Angiogram with bilateral lower [...] serially upsized using Seldinger technique through a 5-Syrian sheath and Omni Flush catheter. Aortogram was [...] Recovery in stable condition. Jovanny Parmar MD LM:[id number] /[id number] [facility] PROGRESSon 08-28-2019 PROGRESS HNO ID: [id number] Author: Zack Jenkins Service: Hospital Medicine Author Type: Physician Type: Progress Notes Filed: 08/28/2019 6:10 PM Note Text: DEPARTMENT OF HOSPITAL MEDICINE PROGRESS NOTE SERVICE DATE: 08/28/2019 SERVICE TIME: 6:05 PM Hospital Medicine/Primary Attending: Zack Jenkins, DO NIGHT AND WEEKEND COVERAGE: After 7pm please page [phone] CHIEF COMPLAINT: No new complaints SUBJECTIVE: Pt [...] amputation -Angio 08/26 showing partial occlusion R RETENTION SPECIALIST -Vascular and Ortho consults -Plan is for [...] units Sub Q BID Disposition: Home with [facility] pending progress and surgery Plan of care discussed with: Provider, RN, Patient SIGNATURE: Zack Jenkins DO PATIENT NAME: Elizabeth Modi DATE: August 28, 2019 TIME: 6:05 PM PAGER/CONTACT #: Team color pager Disclaimer: Portions of this note may have been generated using Elivar voice recognition software. Reasonable efforts were made to correct any dictation errors that resulted due to the programming of this software but some may still be present. Normal [facility] PROGRESS HNO ID: [id number] Author: Lula Posada (Rt) Service: Radiology Author Type: Boiler Erector Type: Progress Notes Filed: 08/28/2019 3:12 PM [...] next appointment PROCEDURE TYPE: NM Stress: 12.2mCi [id number] was administered IV for Rest Imaging at 1250 by ms. 35.9 mCi [id number] was administered IV for Stress Imaging at 240 by ty. ADMINISTRATION TIME: 1250 PATIENT DISCHARGED TO: Patient taken to IP transport area for return to RNF/ICU/ED. A Diagnostic radioactive procedure has taken place, with no further precautions necessary other than routine body substance precautions. More information regarding radiation safety can be found using this link: [email or web address] [email or web address] SIGNATURE: RT Albino PATIENT NAME: Elizabeth Modi DATE: August 28, 2019 TIME: 3:11 PM PAGER/CONTACT #: Mela [facility] PROGRESS HNO ID: [id number] Author: Francine Roberts Service: Vascular Surgery Author [...] questions or concerns Mon-Fri 6a-5p please page [phone]. After 5pm and on Weekends and Holidays, please page [phone] if in ICU or [phone] if on [...] 08/27/[address] - 08/28/1965808/28/[address] - 08/29/19 0659 Shift 2579-2633 8746-1487 1235-8636 24 Hour Total 4365-3741 0403-7229 9677-9228 24 Hour Total INTAKE PO 30 30 [...] able, out of bed to chair - [facility] - Plan for OR Monday for [...] 0 Phosphate [Mass/Vol] 3.3 mg/dL Normal 2.5-4.9 [facility] Comment on above: Performed By: #### P 8 #### [facility] [address] [place] [address] THERAPY NTon 08-28-2019 THERAPY NT HNO ID: [id number] Author: Tanja (Pt) Hoda Service: Physical Therapy Author Type: Physical Therapist Type: Therapy (PT/OT/Speech/Resp) Filed: 08/28/2019 3:32 PM Note Text: PHYSICAL THERAPY MISSED VISIT SERVICE DATE: 08/28/2019 SERVICE TIME: 1529 to 1529 ROOM: [place] [address] Attempted Treatment. Patient not seen due to Test/Procedure(out of room for stress test). Will reattempt as able. SIGNATURE: Tanja Drummond, PT PATIENT NAME: Elizabeth Modi DATE: August 28, 2019 TIME: 3:30 PM Normal [facility] THERAPY NT HNO ID: [id number] Author: An (Otr/LSmitha Miller Service: Occupational Therapy Author Type: Occupational Therapist Type: Therapy (PT/OT/Speech/Resp) Filed: 08/28/2019 11:27 AM Note Text: Occupational Therapy Treatment SERVICE DATE: 08/28/2019 SERVICE TIME: 1026 to 1105 ROOM: [place] [address] Recommended Discharge Disposition: Acute Rehab Recommended Discharge [...] (ADL);General symptoms and signs-other Interventions Provided: Self Retirement Management (61789) Self Retirement Management (83019) Treatment Minutes: 39 3 units Skilled Intervention(s):Full [...] for surgery. Reason for Occupational Therapy Consult: OPERATOR TECHNICIAN Relevant Past Medical History: thyroid, HTN, DM, [...] Patient Lives With: Self/Alone Assistance Available: time cycle operator Entry To Home: Stairs;With Rail Number [...] ANES [place] 08-27-2019 ANES POST HNO ID: [id number] Author: Oanh Pugh Service: Anesthesiology Author Type: [...] ANES PREOPon 08-27-2019 ANES PREOP HNO ID: [id number] Author: Jesse Jimenez Service: Anesthesiology Author Type: [...] August 27, 2019 TIME: 11:00 AM CSN: [id number] [facility] BRIEF OP NOTon 08-27-2019 BRIEF OP NOT HNO ID: [id number] Author: Tom Prescott DO Service: General Surgery [...] BRIEF OPERATIVE / PROCEDURE NOTE LOG ID: [id number] SURGERY/PROCEDURE DATE: 08/27/2019 INCISION/PROCEDURE START TIME: 10:01 AM INCISION CLOSE/PROCEDURE END TIME: 10:55 AM SURGEON(S)/PROCEDURALI ST(S) AND EXTRACTOR OPERATOR SOLVENT PROCESS(S): Surgeon(s) and Role: * Jovanny Parmar - Primary * Tom Prescott DO - Resident - Assisting Hydraulic Assembler: Lori Schmid SA SURGERY/PROCEDURE(S): Diagnostic bilatera lower [...] [facility] CONSULTon 08-27-2019 CONSULT HNO ID: [id number] Author: Gold Sullivan Service: Cardiovascular Medicine Author [...] 27, 2019 TIME: 3:27 PM PAGER/CONTACT #: [phone] [facility] CONSULT PROGon 08-27-2019 CONSULT PROG HNO ID: [id number] Author: Doris Eden Service: Endocrinology Author Type: Physician Type: Consult Progress Note Filed: 08/27/2019 8:02 AM Note Text: ENDOCRINOLOGY CONSULT PROGRESS NOTE SERVICE DATE: 08/27/2019 SERVICE TIME: 7:50 AM Subjective INTERVAL HPI: Pt followed for diabetes mellitus type 2 with complications. 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; [...] DATE OF EXAM: Aug 27 2019 11:22AM [facility] 0993 - IR ABDOMEN ANGIO W/ [...] Left reconstitution at the above-knee popliteal artery. Cigarette Carton Sealer: ONEL Transcribe Date/Time: Aug 29 2019 1:09P Dictated by : JOVANNY PARMAR MD This examination was interpreted and the report reviewed and electronically signed by: JOVANNY PARMAR MD on Aug 29 2019 1:12PM EST Normal [facility] NUTRITIONon 08-27-2019 NUTRITION HNO ID: [id number] Author: Carine Zimmerman) Samantha Service: Nutrition Therapy Author Type: Registered Dietitian Type: Nutrition Filed: 08/27/2019 3:14 PM Note Text: NUTRITION THERAPY PROGRESS NOTE SERVICE DATE: 08/27/2019 SERVICE TIME: 2:20 PM Nutrition Assessment: Recommended Malnutrition Diagnosis: Moderate Protein-Calorie Malnutrition (08/22/19 1436 : Keturah (Plant Operations Manager) Valery) Estimated kilocalorie needs: 7707-6461 Calorie Calculation Method: 30-35 kcals/kg Estimated protein [...] August 27, 2019 TIME: 2:20 PM PAGER: [phone] Normal [facility] PROGRESSon 08-27-2019 PROGRESS HNO ID: [id number] Author: Tom Prescott DO Service: General Surgery [...] questions or concerns Mon-Fri 6a-5p please page [phone]. After 5pm and on Weekends and Holidays, [...] - 08/27/1965808/27/19 07 - 08/28/19 0659 Shift 8887-7642 2091-5574 9200-9835 24 Hour Total 5800-3816 3217-0365 7757-8163 24 Hour Total INTAKE PO 30 30 [...] questions or concerns Mon-Fri 6a-5p please page [phone]. After 5pm and on Weekends and Holidays, please page [phone] if in ICU or [phone] if on RNF. Normal [facility] PROGRESS HNO ID: [id number] Author: Sue Bianchi Service: Hospital Medicine Author [...] bowel sounds normally heard, no mass palpable DIRECTOR OF PUPIL PERSONNEL PROGRAM- cranial nerves 2 to 12 grossly intact, [...] 08/21/191914 vte non-pharmacologic prophylaxis - none indicated (nh,oh) 08/21/191914 activity - mobilize patient (nh,[place]) VTE Prophylaxis: VTE prophylaxis appropriate Disposition: Home with [facility] Plan of care discussed with: Provider, RN, Patient SIGNATURE: Sue Bianchi DO PATIENT NAME: Elizabeth Modi DATE: August 27, 2019 TIME:7:24 AM PAGER/CONTACT #: [phone] Normal [facility] THERAPY NTon 08-27-2019 THERAPY NT HNO ID: [id number] Author: Tanja SantiagoPt) Hoda Service: Physical Therapy [...] [facility] THERAPY NT HNO ID: [id number] Author: Maricarmen SantiagoOtr/L) Florentino Service: Occupational Therapy [...] Creatinine [Mass/Vol] 0.86 mg/dL Normal 0.67-1.17 [facility] Comment on above: Result Comment: Use of this assay is not recommended for patients undergoing treatment with phenindione, due to the potential for falsely depressed results. Performed By: #### P 8 #### [place] [address] Anion gap [Moles/Vol] 12 mmol/L Normal 8-16 [facility] Comment on above: Performed By: #### P 8 #### [address] [address] CO2 [Moles/Vol] 25 mmol/L Normal 21-32 [facility] Comment on above: Performed By: #### P 8 #### [facility] [address] [place], [place] [address] Urea nitrogen [Mass/Vol] 18 mg/dL Normal 7-18 [facility] Comment on above: Performed By: #### P 8 #### [facility] [address] [place], [place] [address] Calcium [Mass/Vol] 7.8 mg/dL Low 8.5-10.1 [facility] Comment on above: Performed By: #### P 8 #### [facility] [address] [place], [place] [address] Glucose [Mass/Vol] 114 mg/dL High 70-99 [facility] Comment on above: Performed By: #### P 8 #### [facility] [address] [place], [place] [address] Chloride [Moles/Vol] 104 mmol/L Normal 98-107 [facility] Comment on above: Performed By: #### P 8 #### [facility] [address] [place], [place] [address] Potassium [Moles/Vol] 3.8 mmol/L Normal 3.5-5.1 [facility] Comment on above: Performed By: #### P 8 #### [facility] [address] [place], [place] [address] Sodium [Moles/Vol] 137 mmol/L Normal 136-145 [facility] Comment on above: Performed By: #### P 8 #### [facility] [address] [place], [place] [address] CASE MANAGEMon 08-26-2019 CASE MANAGEM HNO ID: [id number] Author: Christina Perez Service: Care Management Author Type: ? Type: Care Mgt Progress Note Filed: 08/26/2019 10:50 AM Note Text: CARE MANAGEMENT PROGRESS NOTE SERVICE DATE: 08/26/2019 SERVICE TIME: 1000 LOS: 5 days IMM Follow Up Copy Given: Yes Copy given to:: Patient Method: In Person SIGNATURE: Christina Perez PATIENT NAME: Elizabeth Modi DATE: August 26, 2019 TIME: 10:50 AM PAGER/CONTACT #: [phone] [facility] CASE MANAGEM HNO ID: [id number] Author: Tami SantiagoRn) YURI Patricio Service: Care Management Author Type: Registered Nurse Type: Care Mgt Progress Note Filed: 08/26/2019 10:17 AM Note Text: CARE MANAGEMENT PROGRESS NOTE SERVICE DATE: 08/26/2019 SERVICE TIME: 10:15 AM LOS: 5 days Chart reviewed. Plan now is for arteriogram likely next week and then possibly bka v aka pending results. Vascular and Ortho follow. Referral to [facility] for AR. Will follow clinical progress. SIGNATURE: Tami Patricio RN PATIENT NAME: Elizabeth Modi DATE: August 26, 2019 TIME: 10:15 AM PAGER/CONTACT #: [phone] [facility] CONSULT PROGon 08-26-2019 CONSULT PROG HNO ID: [id number] Author: Doris Eden Service: Endocrinology Author Type: Physician Type: Consult Progress Note Filed: 08/26/2019 8:09 AM Note Text: ENDOCRINOLOGY CONSULT PROGRESS NOTE SERVICE DATE: 08/26/2019 SERVICE TIME: 8:00 AM Subjective INTERVAL HPI: Pt followed for diabetes mellitus type 2 with complications. 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; [...] Abs Immature Grans 0.20 thou/cmm High 0.00-0.05 [facility] Comment on above: Performed By: #### M AG #### [place] [address] Abs Neut (ANC) 6.48 thou/cmm High 1.78-5.38 [facility] Comment on above: Performed By: #### M AG #### [place] [address] Abs. Baso 0.04 thou/cmm Normal 0.01-0.08 [facility] Comment on above: Performed By: #### M AG #### [place] [address] Abs. Garden 0.93 thou/cmm High 0.30-0.82 [facility] Comment on above: Performed By: #### M AG #### [place] [address] Basophils/100 WBC (Bld) 0.4 % Normal A [facility] Comment on above: Performed By: #### M AG #### [place] [address] Eosinophils (Bld) [#/Vol] 0.21 thou/cmm Normal 0.04-0. 54 [facility] Comment on above: Performed By: #### M AG #### [facility] [address] [place], [place] [address] Eosinophils/100 WBC (Bld) 2.1 % Normal [facility] Comment on above: Performed By: #### M AG #### [facility] [address] [place] [address] Erythrocyte distribution width (RBC) [Ratio] 13.3 % Normal 11.6-14.4 [facility] Comment on above: Performed By: #### M AG #### [place] [address] Hematocrit (Bld) [Volume fraction] 32.3 % Low 40.1-51.0 [facility] Comment on above: Performed By: #### M AG #### [place] [address] Hemoglobin (Bld) [Mass/Vol] 10.5 g/dL Low 13.7-17.5 [facility] Comment on above: Performed By: #### M AG #### [place] [address] Immature Grans 2.00 % Normal [facility] Comment on above: Performed By: #### M AG #### [place] [address] Lymphocytes (Bld) [#/Vol] 2.34 thou/cmm Normal 0.84-2. 85 [facility] Comment on above: Performed By: #### M AG #### [facility] [address] [place] [address] Lymphocytes/100 WBC (Bld) 22.9 % Normal [facility] Comment on above: Performed By: #### M AG #### [place] [address] MCH (RBC) [Entitic mass] 28.6 pg Normal 25.7-32.2 [facility] Comment on above: Performed By: #### M AG #### [facility] [address] [place], [place] [address] MCHC (RBC) [Mass/Vol] 32.5 % Normal 32.3-36.5 [facility] Comment on above: Performed By: #### M AG #### [facility] [address] [place], [place] [address] MCV (RBC) [Entitic vol] 88.0 fL Normal 83.2-95.6 A [facility] Comment on above: Performed By: #### M AG #### [facility] [address] [place] [address] Monocytes/100 WBC (Bld) 9.1 % Normal A [facility] Comment on above: Performed By: #### M AG #### [facility] [address] [place] [address] Platelet mean volume (Bld) [Entitic vol] 9.5 fL Normal 8.7-12.0 [facility] Comment on above: Performed By: #### M AG #### [facility] [address] [place] [address] Platelets (Bld) [#/Vol] 474 thou/cmm High 141-365 [facility] Comment on above: Performed By: #### M AG #### [facility] [address] [place] [address] RBC (Bld) [#/Vol] 3.67 mil/cmm Low 4.63-6.08 [facility] Comment on above: Performed By: #### M AG #### [facility] [address] [place] [address] RDW SD 43.1 fl Normal 36.1-45.8 [facility] Comment on above: Performed By: #### M AG #### [facility] [address] [place] [address] Seg Neutrophil 63.5 % Normal [facility] Comment on above: Performed By: #### M AG #### [facility] [address] [place], [place] [address] WBC (Bld) [#/Vol] 10.21 thou/cmm High 4.23-9.07 [facility] Comment on above: Performed By: #### M AG #### [facility] [address] [place] [address] PROGRESSon 08-26-2019 PROGRESS HNO ID: [id number] Author: Sue Bianchi Service: Hospital Medicine Author Type: Physician Type: Progress Notes Filed: 08/26/2019 1:35 PM Note Text: DEPARTMENT OF HOSPITAL MEDICINE PROGRESS NOTE SERVICE DATE: 08/26/2019 SERVICE TIME: 1:34 PM Hospital Medicine/Primary Attending: Sue Bianchi, DO NIGHT AND WEEKEND COVERAGE: After 7pm, please call cross cover pager #[phone] Subjective INTERVAL HPI: Patient seen and examined. [...] bowel sounds normally heard, no mass palpable DIRECTOR OF PUPIL PERSONNEL PROGRAM- cranial nerves 2 to 12 grossly intact, [...] 08/21/191914 vte non-pharmacologic prophylaxis - none indicated ([place]) 08/21/191914 activity - mobilize patient ([place]) VTE Prophylaxis: VTE prophylaxis appropriate Disposition: Home with [facility] Plan of care discussed with: Provider, RN, Patient SIGNATURE: Sue Bianchi DO PATIENT NAME: Elizabeth Modi DATE: August 26, 2019 TIME:1:34 PM PAGER/CONTACT #: [phone] [facility] PROGRESS HNO ID: [id number] Author: Tom Prescott DO Service: General Surgery [...] questions or concerns Mon-Fri 6a-5p please page [phone]. After 5pm and on Weekends and Holidays, [...] THERAPY NTon 08-26-2019 THERAPY NT HNO ID: [id number] Author: Maricarmen Babb/Vickie Good Service: Occupational Therapy Author Type: Occupational Therapist Type: Therapy (PT/OT/Speech/Resp) Filed: 08/26/2019 11:15 AM Note Text: Occupational Therapy Treatment SERVICE DATE: 08/26/2019 SERVICE TIME: 919 to 944 ROOM: [id number] Recommended Discharge Disposition: Acute Rehab Justification For [...] (ADL);General symptoms and signs-other Interventions Provided: Self Retirement Management (92151);Therapeutic Exercise (26927) Therapeutic Exercise (52003) Treatment Minutes: 10 1 unit Skilled Intervention(s): [...] to patient shrugging shoulders during activity. 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 Pt reported no pain and was agreeable to therapy. 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: time cycle operator Entry To Home: Stairs;With Rail Number [...] CONSULT Cheikh 08-25-2019 CONSULT PROG HNO ID: [id number] Author: Doris Eden Service: Endocrinology Author Type: Physician Type: Consult Progress Note Filed: 08/25/2019 9:29 AM Note Text: ENDOCRINOLOGY CONSULT PROGRESS NOTE SERVICE DATE: 08/25/2019 SERVICE TIME: 9:10 AM Subjective INTERVAL HPI: Pt followed for diabetes mellitus type 2 with complications. 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; [...] August 25, 2019 TIME: 9:29 AM PAGER: [phone] [facility] PLAN OF CAREon 08-25-2019 PLAN OF CARE HNO ID: [id number] Author: Francine Roberts Service: General Surgery Author [...] [facility] PROGRESSon 08-25-2019 PROGRESS HNO ID: [id number] Author: Sue Bianchi Service: Hospital Medicine Author Type: Physician Type: Progress Notes Filed: 08/25/2019 4:34 PM Note Text: DEPARTMENT OF HOSPITAL MEDICINE PROGRESS NOTE SERVICE DATE: 08/25/2019 SERVICE TIME: 1:10 PM Hospital Medicine/Primary Attending: Sue Bianchi, DO NIGHT AND WEEKEND COVERAGE: After 7pm, please call cross cover pager #[phone] Subjective INTERVAL HPI: Patient seen and examined. [...] bowel sounds normally heard, no mass palpable DIRECTOR OF PUPIL PERSONNEL PROGRAM- cranial nerves 2 to 12 grossly intact, [...] 08/21/191914 vte non-pharmacologic prophylaxis - none indicated ([place]) 08/21/191914 activity - mobilize patient ([place]) VTE Prophylaxis: VTE prophylaxis appropriate Disposition: Home with [facility] Plan of care discussed with: Provider, RN, Patient SIGNATURE: Sue Bianchi DO PATIENT NAME: Elizabeth Modi DATE: August 25, 2019 TIME:1:10 PM PAGER/CONTACT #: [phone] [facility] PROGRESS HNO ID: [id number] Author: Francine (Cassia Roberts Service: General Surgery [...] questions or concerns Mon-Fri 6a-5p please page [phone]. After 5pm and on Weekends and Holidays, please page [phone] if in ICU or [phone] if on [...] 0659 08/25/19 07 - 08/26/19 0659 Shift 9326-6117 3788-8972 2751-3110 24 Hour Total 9241-0815 4570-8648 8106-7347 24 Hour Total INTAKE Shift Total OUTPUT [...] 08-24-2019 Creatinine [Mass/Vol] 0.76 mg/dL Normal 0.67-1.17 [facility] Comment on above: Result Comment: Use of this assay is not recommended for patients undergoing treatment with phenindione, due to the potential for falsely depressed results. Performed By: #### G LMET #### [facility] [address] [place], [place] [address] Anion gap [Moles/Vol] 10 mmol/L Normal 8-16 [facility] Comment on above: Performed By: #### G LMET #### [address] [address] CO2 [Moles/Vol] 20 mmol/L Low 21-32 [facility] Comment on above: Performed By: #### G LMET #### [facility] [address] [place], [place] [address] Glucose [Mass/Vol] 107 mg/dL High 70-99 [facility] Comment on above: Performed By: #### G LMET #### [facility] [address] [place], [place] [address] Urea nitrogen [Mass/Vol] 12 mg/dL Normal 7-18 [facility] Comment on above: Performed By: #### G LMET #### [facility] [address] [place], [place] [address] Calcium [Mass/Vol] 7.9 mg/dL Low 8.5-10.1 [facility] Comment on above: Performed By: #### G LMET #### [facility] [address] [place], [place] [address] Chloride [Moles/Vol] 105 mmol/L Normal 98-107 [facility] Comment on above: Performed By: #### G LMET #### [facility] [address] [place], [place] [address] Potassium [Moles/Vol] 4.4 mmol/L Normal 3.5-5.1 [facility] Comment on above: Performed By: #### G LMET #### [facility] [address] [place], [place] [address] Sodium [Moles/Vol] 131 mmol/L Low 136-145 [facility] Comment on above: Performed By: #### G LMET #### [facility] [address] [place], [place] [address] CONSULT PROGon 08-24-2019 CONSULT PROG HNO ID: [id number] Author: Hermila Gallegos Service: Endocrinology Author Type: [...] [facility] CONSULT PROG HNO ID: [id number] Author: Martha Ryan (Pharmacist) Service: Pharmacy Author [...] pharmacy if questions. MARTHA RYAN, PHARMACIST Ext: [phone] Normal [facility] Hemogram/Diffon 08-24-2019 Abs Immature Grans 0.19 thou/cmm High 0.00-0.05 [facility] Comment on above: Performed By: #### M AG #### [place] [address] Abs Neut (ANC) 6.15 thou/cmm High 1.78-5.38 [facility] Comment on above: Performed By: #### M AG #### [place] [address] Abs. Baso 0.04 thou/cmm Normal 0.01-0.08 [facility] Comment on above: Result Comment: Smea r scanned; tech agrees with automated differential Performed By: #### M AG #### [place] [address] Abs. Garden 0.75 thou/cmm Normal 0.30-0.82 [facility] Comment on above: Performed By: #### M AG #### [place] [address] Basophils/100 WBC (Bld) 0.4 % Normal A [facility] Comment on above: Performed By: #### M AG #### [place] [address] Eosinophils (Bld) [#/Vol] 0.20 thou/cmm Normal 0.04-0. 54 [facility] Comment on above: Performed By: #### M AG #### [facility] [address] [place], [place] [address] Eosinophils/100 WBC (Bld) 2.2 % Normal [facility] Comment on above: Performed By: #### M AG #### [facility] [address] [place], [place] [address] Immature Grans 2.10 % Normal [facility] Comment on above: Performed By: #### M AG #### [facility] [address] [place] [address] Lymphocytes (Bld) [#/Vol] 1.86 thou/cmm Normal 0.84-2. 85 [facility] Comment on above: Performed By: #### M AG #### [facility] [address] [place], [place] [address] Lymphocytes/100 WBC (Bld) 20.2 % Normal [facility] Comment on above: Performed By: #### M AG #### [facility] [address] [place], [place] [address] Monocytes/100 WBC (Bld) 8.2 % Normal [facility] Comment on above: Performed By: #### M AG #### [facility] [address] [place], [place] [address] Seg Neutrophil 66.9 % Normal [facility] Comment on above: Performed By: #### M AG #### [address] [address] Erythrocyte distribution width (RBC) [Ratio] 13.3 % Normal 11.6-14.4 [facility] Comment on above: Performed By: #### M AG #### [place] [address] Hematocrit (Bld) [Volume fraction] 36.9 % Low 40.1-51.0 [facility] Comment on above: Performed By: #### M AG #### [place] [address] Hemoglobin (Bld) [Mass/Vol] 11.7 g/dL Low 13.7-17.5 [facility] Comment on above: Performed By: #### M AG #### [facility] [address] [place] [address] MCH (RBC) [Entitic mass] 28.1 pg Normal 25.7-32.2 [facility] Comment on above: Performed By: #### M AG #### [facility] [address] [place] [address] MCHC (RBC) [Mass/Vol] 31.7 % Low 32.3-36.5 [facility] Comment on above: Performed By: #### M AG #### [facility] [address] [place] [address] MCV (RBC) [Entitic vol] 88.7 fL Normal 83.2-95.6 [facility] Comment on above: Performed By: #### M AG #### [facility] [address] [place] [address] Platelet mean volume (Bld) [Entitic vol] 9.5 fL Normal 8.7-12.0 [facility] Comment on above: Performed By: #### M AG #### [facility] [address] [place] [address] Platelets (Bld) [#/Vol] 428 thou/cmm High 141-365 [facility] Comment on above: Performed By: #### M AG #### [facility] [address] [place] [address] RBC (Bld) [#/Vol] 4.16 mil/cmm Low 4.63-6.08 [facility] Comment on above: Performed By: #### M AG #### [facility] [address] [place] [address] RDW SD 43.4 fl Normal 36.1-45.8 [facility] Comment on above: Performed By: #### M AG #### [facility] [address] [place] [address] WBC (Bld) [#/Vol] 9.20 thou/cmm High 4.23-9.07 [facility] Comment on above: Performed By: #### M AG #### [facility] [address] [place], [place] [address] Magnesium Bloodon 08-24-2019 Magnesium [Mass/Vol] 2.4 mg/dL Normal 1.6-2.6 [facility] Comment on above: Performed By: #### M AG #### [facility] [address] [place], [place] [address] PROGRESSon 08-24-2019 PROGRESS HNO ID: [id number] Author: Sue Bianchi Service: Hospital Medicine Author Type: Physician Type: Progress Notes Filed: 08/24/2019 5:16 PM Note Text: DEPARTMENT OF HOSPITAL MEDICINE PROGRESS NOTE SERVICE DATE: 08/24/2019 SERVICE TIME: 12:40 PM Hospital Medicine/Primary Attending: Sue Bianchi, DO NIGHT AND WEEKEND COVERAGE: After 7pm, please call cross cover pager #[phone] Subjective INTERVAL HPI: Patient seen and examined. [...] bowel sounds normally heard, no mass palpable DIRECTOR OF PUPIL PERSONNEL PROGRAM- cranial nerves 2 to 12 grossly intact, [...] 08/21/191914 vte non-pharmacologic prophylaxis - none indicated ([place]) 08/21/191914 activity - mobilize patient ([place], [place]) VTE Prophylaxis: VTE prophylaxis appropriate Disposition: Home with [facility] Plan of care discussed with: Provider, RN, Patient SIGNATURE: Sue Bianchi DO PATIENT NAME: Elizabeth Modi DATE: August 24, 2019 TIME:12:40 PM PAGER/CONTACT #: [phone] Normal [facility] PROGRESS HNO ID: [id number] Author: Edy Paredes Service: Infectious Disease Author Type: Physician Type: Progress Notes Filed: 08/24/2019 9:20 AM Note Text: Edy Paredes MD, MS, FACP, FIDSA Division of Infectious Diseses [address] [facility] [address] [place] [address] Office: [phone] INFECTIOUS DISEASE CONSULT PROGRESS NOTE SERVICE DATE: [...] off. SIGNATURE: Edy Paredes MD, MS, FACP, [facility] PATIENT NAME: Elizabeht Modi DATE: August 24, 2019 TIME: 9:16 AM PAGER/CONTACT #: [phone] [facility] PROGRESS HNO ID: [id number] Author: Francine Roberts Service: Vascular Surgery Author [...] questions or concerns Mon-Mon 6a-5p please page [phone]. After 5pm and on Weekends and Holidays, please page [phone] if in ICU or [phone] if on [...] - 08/24/1965808/24/19 07 - 08/25/19 0659 Shift 5896-7772 8442-9189 7011-5225 24 Hour Total 2487-9865 3570-6221 2392-7305 24 Hour Total INTAKE IV 625 625 OR Crystalloid intake (mL) 250 250 Volume (mL) (lactated ringers infusion) 125 125 Volume (mL) (vancomycin iv piggyback 1.25 g in D5W 250 mL (VANCOCIN)) 250 250 Shift Total 625 625 OUTPUT Urine 452 263 2104 Void (ml) 681 748 3327 Blood 50 50 Estimated Blood loss 50 50 Shift Total 161 883 2422 Weight (kg) 85 85 85 85 85 [...] 3 g in NaCl 0.9% 100 mL MB+/ADD-[place] (UNASYN) 3 g INTRAVENOUS q 6 H [...] 0 Phosphate [Mass/Vol] 2.3 mg/dL Low 2.5-4.9 [facility] Comment on above: Performed By: #### G LMET #### [address] [address] THERAPY NTon 08-24-2019 THERAPY NT HNO ID: [id number] Author: Lizeth Cobos Service: Physical Therapy Author Type: Physical Therapist Type: Therapy (PT/OT/Speech/Resp) Filed: 08/24/2019 2:49 PM Note Text: Physical Therapy Evaluation SERVICE DATE: 08/24/2019 SERVICE TIME: 1325 to 1346 ROOM: [id number] Recommended Discharge Disposition: Acute Rehab Recommended Discharge [...] Weakness (generalized) Interventions Provided: Evaluation $ Evaluation-Low (66272) Billed Units: 1 unit History and examination [...] Patient Lives With: Self/Alone Assistance Available: time cycle operator Entry To Home: Stairs;With Rail Number [...] [facility] THERAPY NT HNO ID: [id number] Author: Susan SantiagoOtr/Vickie Miner Service: Occupational Therapy Author Type: Occupational Therapist Type: Therapy (PT/OT/Speech/Resp) Filed: 08/24/2019 1:07 PM Note Text: Occupational Therapy Evaluation SERVICE DATE: 08/24/2019 SERVICE TIME: 1133 to 1208 ROOM: [place] [address] Recommended Discharge Disposition: Acute Rehab Justification For [...] (ADL);General symptoms and signs-other Interventions Provided: Evaluation;Self Retirement Management (87633) $ Evaluation-Moderate (95945) Billed Units: 1 unit OT Evaluation Moderate [...] occupational performance: thyroid, HTN, DM, claudication Self Retirement Management (39245) Treatment Minutes: 10 1 unit Skilled Intervention(s): [...] lower extremity. 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 Patient agreeable to therapy. I have no pain at all." Denies pain before/after transfers. 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: time cycle operator(dtr) Entry To Home: Stairs;With Rail(bilat rails) [...] ANES [place] 08-23-2019 ANES POST HNO ID: [id number] Author: Sj Huizar Service: Anesthesiology Author Type: [...] ANES PREOPon 08-23-2019 ANES PREOP HNO ID: [id number] Author: Sj Huizar Service: Anesthesiology Author Type: [...] Units SUBCUTANEOUS q 12 H Mohammad F Mormon 5,000 Units at 08/22/19 0807 - [MAR Hold due to Transfer] aluminum-magnesium hydroxide-simethicone 200-200-20 mg/5 mL 30 mL (MAALOX,MYLANTA,MAG-AL PLUS) 30 mL ORAL DAILY PRN Mohammad F Mormon - [MAR Hold due to Transfer] ondansetron 4 mg tab(s) (ZOFRAN) 4 mg ORAL q 6 H PRN Mohammad F Mormon Or - [MAR Hold due to Transfer] ondansetron (PF) 4 mg injection (ZOFRAN) 4 mg INTRAVENOUS q 6 H PRN Mohammad F Mormon - [MAR Hold due to Transfer] polyethylene glycol 3350 17 g packet (MIRALAX, GLYCOLAX) 17 g ORAL DAILY PRN Mohammad F Mormon - [MAR Hold due to Transfer] docusate sodium 100 mg cap(s) (COLACE) 100 mg ORAL BID PRN Mohammad F Mormon - [MAR Hold due to Transfer] magnesium hydroxide 400 mg/5 mL 30 mL (MOM) 30 mL ORAL DAILY PRN Mohammad F Mormon - [MAR Hold due to Transfer] bisacodyl 10 mg suppository (DULCOLAX) 10 mg RECTAL DAILY PRN Mohammad F Mormon - [MAR Hold due to Transfer] acetaminophen 650 mg tab(s) (TYLENOL) 650 mg ORAL q 6 H PRN Mohammad F Mormon - [MAR Hold due to Transfer] atorvastatin 40 mg tab(s) (LIPITOR) 40 mg ORAL DAILY Mohammad F Mormon 40 mg at 08/22/192009 - [MAR Hold due to Transfer] lisinopril 10 mg tab(s) (ZESTRIL, PRINIVIL) 10 mg ORAL DAILY Mohammad F Mormon 10 mg at 08/22/19 0807 - [MAR Hold due to Transfer] levothyroxine 25 mcg tab(s) (SYNTHROID) 25 mcg ORAL DAILY Mohammad F Mormon 25 mcg at 08/22/19 0600 - [MAR Hold due to Transfer] insulin lispro pen (rapid acting) (HumaLOG KWIKPEN) SUBCUTANEOUS w MEALS AND HS Mohammad F Mormon 1 Units at 08/22/192128 - [MAR Hold due to Transfer] dextrose 40 % 15 g 15 g ORAL PRN Mohammad F Mormon Or - [MAR Hold due to Transfer] glucagon 1 mg injection (GLUCAGEN) 1 mg INTRAMUSCULAR PRN Mohammad F Mormon Or - [MAR Hold due to Transfer] dextrose 50% in water 25 mL syringe 12.5 g INTRAVENOUS PRN Mohammad F Mormon - [MAR Hold due to Transfer] vancomycin iv piggyback 1.25 g in D5W 250 mL (VANCOCIN) 1.25 g INTRAVENOUS q 12 HR Mohammad F Mormon 250 mL/hr at 08/22/192009 1.25 g at 08/22/192009 - [MAR Hold due to Transfer] vancomycin dosing and monitoring per pharmacy OTHER As Directed Mohammad F Mormon - [MAR Hold due to Transfer] piperacillin-tazobacta m iv piggyback 3.375 g in dextrose (iso-osmotic) 50 mL (ZOSYN) 3.375 g INTRAVENOUS q 6 H Mohammad F Mormon 100 mL/hr at 08/23/19 0549 3.375 g at 08/23/19 0549 - [MAR Hold due to Transfer] clindamycin iv piggyback 600 mg in D5W 50 mL (CLEOCIN) 600 mg INTRAVENOUS q 6 H Mohammad F Mormon 100 mL/hr at 08/23/19 0549 600 mg [...] August 23, 2019 TIME: 8:32 AM CSN: [id number] [facility] BRIEF OP NOTon 08-23-2019 BRIEF OP NOT HNO ID: [id number] Author: Jennifer Crooks Service: General Surgery Author Type: Resident Type: Brief Op Note Filed: 08/23/2019 9:35 AM Note Text: Attestation signed by Gordo Figueroa at 08/23/2019 10:01 AM I was present for the entire procedure and performed the procedure with the assistance of the resident and the surgical services asst BRIEF OP / PROCEDURE NOTE LOG ID: [id number] Surgery/Procedure Date: 08/23/2019 Incision/Procedure Start Time: 8:42 AM Incision Close/Procedure End Time: 9:04 AM Surgeon(s)/Procedurali st(s) and Fagot Heater Helper(s): Surgeon(s) and Role: * Gordo Figueroa - [...] 08-23-2019 Creatinine [Mass/Vol] 0.88 mg/dL Normal 0.67-1.17 [facility] Comment on above: Result Comment: Use of this assay is not recommended for patients undergoing treatment with phenindione, due to the potential for falsely depressed results. Performed By: #### P 8 #### [address] [address] Glucose [Mass/Vol] 96 mg/dL Normal 70-99 [facility] Comment on above: Performed By: #### P 8 #### [address] [address] Anion gap [Moles/Vol] 12 mmol/L Normal 8-16 [facility] Comment on above: Performed By: #### P 8 #### [facility] [address] [place], [place] [address] Calcium [Mass/Vol] 7.2 mg/dL Low 8.5-10.1 [facility] Comment on above: Performed By: #### P 8 #### [address] [address] CO2 [Moles/Vol] 22 mmol/L Normal 21-32 [facility] Comment on above: Performed By: #### P 8 #### [address] [address] Urea nitrogen [Mass/Vol] 15 mg/dL Normal 7-18 [facility] Comment on above: Performed By: #### P 8 #### [facility] [address] [place], [place] [address] Chloride [Moles/Vol] 103 mmol/L Normal 98-107 [facility] Comment on above: Performed By: #### P 8 #### [facility] [address] [place], [place] [address] Potassium [Moles/Vol] 3.8 mmol/L Normal 3.5-5.1 [facility] Comment on above: Performed By: #### P 8 #### [facility] [address] [place], [place] [address] Sodium [Moles/Vol] 133 mmol/L Low 136-145 [facility] Comment on above: Performed By: #### P 8 #### [facility] [address] [place], [place] [address] CASE MGT INIT ASSESon 2019 CASE MGT INIT [facility] HNO ID: [id number] Author: Tami (Rn) YURI Patricio Service: Care Management Author Type: Registered Nurse Type: Care Mgt Initial Assessment Filed: 08/23/2019 3:20 PM Note Text: CARE MANAGEMENT: ASSESSMENT AND DISCHARGE PLAN SERVICE DATE: August 23, 2019 SERVICE TIME: 3:18 PM PRIMARY CARE PHYSICIAN: No primary care provider on file. Phone: None ADMISSION STATUS: Inpatient Needs Prior to Discharge: OT/PT Evaluation;Discharge Transportation;[facility] Facility;Precertificat ion MEDICAL: [facility] Patient/Calibration Specialist Stated Goals: To have reduction in symptoms;To improve my functional status Health Insurance: [employer] Issues Impacting Discharge Plan: None Last Discharge Date: N/A Is this Within the Past 30 days? Last discharge within 30 days: No Advance Directive: Current Advance Directive: None Keyliner Attempted to Assist with AD Completion: Yes [...] Mostly I feel financially burdened by my [id number] expenses for my prescription medication:: 0 - Agree Somewhat Risk Score: 0 Patient is categorized as: Low risk < 2 Are you interested in bedside delivery of your medications? No Is Patient Psychosocially Complex?: No ASSESSMENT AND PLAN: Medical Needs: Medical Needs: None Psychosocial Needs: Psychosocial Needs: None FREEDOM OF CHOICE EXPLAINED: [place] of Choice Given: Yes Level of Care Discussed: Inpatient Rehab Facility Financial Disclosure Provided: Yes Financial Disclosure Comments: ESR Provider List: ([facility] refused [facility] POTENTIAL TRANSITION PLANS Rehab Facility Spoke with pt at the bedside. 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 Pt states that he has a PCP in [place]. Pt is s/p right foot amp. Anticipate AR needs at d/c. Await PT/OT evals. Pt would like [facility] rehab- referral sent. Pt will need auth and likely transport at d/c. Will follow. SIGNATURE: Tami Patricio RN PATIENT NAME: Elizabeth Modi DATE: August 23, 2019 TIME: 3:18 PM PAGER/CONTACT #: [phone] [facility] CONSULTon 08-23-2019 CONSULT HNO ID: [id number] Author: Doris Eden Service: Endocrinology Author Type: Physician Type: Consults Filed: 08/23/2019 1:21 PM Note Text: I have reviewed the patient's medical record in detail. Consult note dictated. See orders for Lantus/oral agents. Can use OTC Novolin N at home. Doris Eden MD. [facility] CONSULT HNO ID: [id number] Author: Doris Eden Service: Endocrinology Author Type: Physician Type: Consults Filed: 08/25/2019 9:16 AM Note Text: [facility] - Consultation PATIENT NAME: ELIZABETH MODI CSN: [id number] DATE OF : 1940 SEX/AGE: M/79 PATIENT TYPE: I HOSP [facility]: [facility] LOCATION: [id number] DATE OF SERVICE: 08/23/2019 TIME OF SERVICE: [...] Lantus 10. Doris Eden MD Endocrinology SM:modl /[id number] [facility] CONSULT PROGon 08-23-2019 CONSULT PROG HNO ID: [id number] Author: Isac Navarro (Pharmacist) Service: Pharmacy Author [...] [place] any questions[place] [phone]. Age: [age] year old Allergies: ALLERGIES No [...] [facility] CONSULT PROG HNO ID: [id number] Author: Paulo Fleming Service: Infectious Disease Author [...] labs Paulo Fleming MD Infectious Disease Respiratory [place] Pager: [phone] August 23, 2019 Normal [facility] Hemogram/Diffon 08-23-2019 Abs Immature Grans 0.19 thou/cmm High 0.00-0.05 [facility] Comment on above: Performed By: #### M AG #### [place] [address] Abs Neut (ANC) 15.52 thou/cmm High 1.78-5.38 [facility] Comment on above: Performed By: #### M AG #### [place] [address] Abs. Baso 0.04 thou/cmm Normal 0.01-0.08 [facility] Comment on above: Result Comment: Smea r scanned; tech agrees with automated differential Performed By: #### M AG #### [place] [address] Abs. Garden 1.45 thou/cmm High 0.30-0.82 [facility] Comment on above: Performed By: #### M AG #### [place] [address] Basophils/100 WBC (Bld) 0.2 % Normal [facility] Comment on above: Performed By: #### M AG #### [facility] [address] [place], [place] [address] Eosinophils (Bld) [#/Vol] 0.21 thou/cmm Normal 0.04-0. 54 [facility] Comment on above: Performed By: #### M AG #### [facility] [address] [place], [place] [address] Eosinophils/100 WBC (Bld) 1.1 % Normal [facility] Comment on above: Performed By: #### M AG #### [facility] [address] [place], [place] [address] Immature Grans 1.00 % Normal [facility] Comment on above: Performed By: #### M AG #### [facility] [address] [place], [place] [address] Lymphocytes (Bld) [#/Vol] 1.39 thou/cmm Normal 0.84-2. 85 [facility] Comment on above: Performed By: #### M AG #### [facility] [address] [place], [place] [address] Lymphocytes/100 WBC (Bld) 7.4 % Normal [facility] Comment on above: Performed By: #### M AG #### [facility] [address] [place], [place] [address] Monocytes/100 WBC (Bld) 7.7 % Normal [facility] Comment on above: Performed By: #### M AG #### [facility] [address] [place], [place] [address] Seg Neutrophil 82.6 % Normal [facility] Comment on above: Performed By: #### M AG #### [facility] [address] [place], [place] [address] Erythrocyte distribution width (RBC) [Ratio] 13.2 % Normal 11.6-14.4 [facility] Comment on above: Performed By: #### M AG #### [facility] [address] [place], [place] [address] Hematocrit (Bld) [Volume fraction] 31.0 % Low 40.1-51.0 [facility] Comment on above: Performed By: #### M AG #### [facility] [address] [place] [address] Hemoglobin (Bld) [Mass/Vol] 10.2 g/dL Low 13.7-17.5 [facility] Comment on above: Performed By: #### M AG #### [facility] [address] [place] [address] MCH (RBC) [Entitic mass] 28.7 pg Normal 25.7-32.2 [facility] Comment on above: Performed By: #### M AG #### [facility] [address] [place] [address] MCHC (RBC) [Mass/Vol] 32.9 % Normal 32.3-36.5 [facility] Comment on above: Performed By: #### M AG #### [place] [address] MCV (RBC) [Entitic vol] 87.1 fL Normal 83.2-95.6 [facility] Comment on above: Performed By: #### M AG #### [place] [address] Platelet mean volume (Bld) [Entitic vol] 9.6 fL Normal 8.7-12.0 [facility] Comment on above: Performed By: #### M AG #### [place] [address] Platelets (Bld) [#/Vol] 421 thou/cmm High 141-365 [facility] Comment on above: Performed By: #### M AG #### [place] [address] RBC (Bld) [#/Vol] 3.56 mil/cmm Low 4.63-6.08 [facility] Comment on above: Performed By: #### M AG #### [place] [address] RDW SD 42.0 fl Normal 36.1-45.8 [facility] Comment on above: Performed By: #### M AG #### [place] [address] WBC (Bld) [#/Vol] 18.79 thou/cmm High 4.23-9.07 [facility] Comment on above: Performed By: #### M AG #### [place] [address] Hgb A1con 08-23-2019 HbA1c (Bld) [Mass fraction] 9.8 % High 4.2-6.3 [facility] Comment on above: Result Comment: Meth od is National Glycohemoglobin Standardization Program (NGSP) compliant. Performed By: #### M AG #### [place] [address] HbA1c (Bld) [Mass fraction] 235 mg/dl Normal [facility] Comment on above: Performed By: #### M AG #### [place] [address] MRSA Screenon 08-23-2019 MRSA DNA ARIELLE+probe Ql (Unsp spec) Test performed at [facility] No MRSA detected. Normal [facility] Comment on above: Performed By: #### F ERR #### [place] [address] Magnesium Bloodon 08-23-2019 Magnesium [Mass/Vol] 0.9 mg/dL Critically low 1.6-2.6 [facility] Comment on above: Performed By: #### M AG #### [place] [address] NURSING PROGon 08-23-2019 NURSING PROG HNO ID: [id number] Author: Karl SantiagoRn) YURI Russell Service: Nursing Author Type: Registered Nurse Type: Nursing Progress Note Filed: 08/23/2019 9:27 AM Note Text: Fall risk protocol initiated. Fall risk wrist band applied and yellow sock applied to left foot. SR up x2. Call light in reach. Urinal offered. Normal [facility] NURSING PROG HNO ID: [id number] Author: Marita SantiagoRn) YURI Aponte Service: Nursing Author Type: Registered Nurse Type: Nursing Progress Note Filed: 08/23/2019 8:09 AM Note Text: Tech here to take pt to presurgery unit . Pt showing no signs of distress voicing no complaints. Pt taken via cart to presurgery unit Normal [facility] NURSING PROG HNO ID: [id number] Author: Marita (Rn) YURI Aponte Service: Nursing [...] [facility] NURSING PROG HNO ID: [id number] Author: Marita SantiagoRn) YURI Aponte Service: Nursing Author Type: Registered Nurse Type: Nursing Progress Note Filed: 08/23/2019 8:11 AM Note Text: Dr. Figueroa into see pt. Dr. Figueroa informing pt that surgery has been moved up to this morning. Pt states understanding. Normal [facility] OPERATIVE NOon 08-23-2019 OPERATIVE NO HNO ID: [id number] Author: Gordo Figueroa Service: Vascular Surgery Author Type: Physician Type: Operative Report Filed: 08/23/2019 1:07 PM Note Text: [facility] - Operative Report ELIZABETH MODI : 1940 AGE: 79. SEX: M PATIENT TYPE: I HOSP SVC: ORCA [facility]ATION: [facility] ATTENDING PHYSICIAN: Ara Singer M.D. CSN NUMBER: [id number] DATE OF SURGERY/PROCEDURE: 08/23/2019 INCISION/PROCEDURE START TIME: 8:42 AM INCISION CLOSE/PROCEDURE END TIME: 9:04 AM PREOPERATIVE DIAGNOSIS: Gangrenous changes of the right foot with gas in the subcutaneous tissues. POSTOPERATIVE DIAGNOSIS: Gangrenous changes of the right foot with gas in the subcutaneous tissues. SURGEON: Gordo Figueroa MD EXTRACTOR OPERATOR SOLVENT PROCESS: 1. Jennifer Crooks M.D. 2. Irvin Walker, surgical services asst. SURGERY/PROCEDURE: Guillotine right above ankle/below-knee amputation. ANESTHESIA: [...] recovery area in stable condition. MD DESMOND Ley:[id number] /[id number] Normal [facility] PROGRESSon 08-23-2019 PROGRESS HNO ID: [id number] Author: Sue Bianchi Service: Hospital Medicine Author Type: Physician Type: Progress Notes Filed: 08/23/2019 3:48 PM Note Text: DEPARTMENT OF HOSPITAL MEDICINE PROGRESS NOTE SERVICE DATE: 08/23/2019 SERVICE TIME: 12:20 PM Hospital Medicine/Primary Attending: Sue Bianchi, DO NIGHT AND WEEKEND COVERAGE: After 7pm, please call cross cover pager #[phone] Subjective INTERVAL HPI: Patient seen and examined. [...] bowel sounds normally heard, no mass palpable DIRECTOR OF PUPIL PERSONNEL PROGRAM- cranial nerves 2 to 12 grossly intact, [...] 08/21/191914 vte non-pharmacologic prophylaxis - none indicated ([place]) 08/21/191914 activity - mobilize patient ([place], [place]) VTE Prophylaxis: VTE prophylaxis appropriate Disposition: Home with [facility] Plan of care discussed with: Provider, RN, Patient SIGNATURE: Sue Bianchi DO PATIENT NAME: Elizabeth Modi DATE: August 23, 2019 TIME:12:20 PM PAGER/CONTACT #: [phone] [facility] PROGRESS HNO ID: [id number] Author: Tom Prescott DO Service: General Surgery [...] questions or concerns Mon-Fri 6a-5p please page [phone]. After 5pm and on Weekends and Holidays, please page [phone] if in ICU or [phone] if on RNF. Subjective SUBJECTIVE: Patient seen [...] 08/22/196[address] - 08/23/1965808/23/19699 - 08/24/19 0659 Shift [id number] 1237-0438 24 Hour Total 2335-7389 3810-6962 0903-5423 24 Hour Total INTAKE PO 240 240 PO 240 240 Shift Total 240 240 OUTPUT Urine 500 987 980 3046 Void (ml) 500 804 781 4822 Shift Total 500 533 634 6437 Weight (kg) 85 85 85 85 85 [...] and plan discussed with attending: Dr. Figueroa, automotive fuel injection servicer for Dr. Parmar SIGNATURE: Tom Prescott DO PATIENT NAME: Elizabeth Modi DATE: August 23, 2019 TIME: 8:02 AM Vascular AND Thoracic Surgery Service Pager: For questions or concerns Mon-Fri 6a-5p please page [phone]. After 5pm and on Weekends and Holidays, please page [phone] if in ICU or [phone] if on RNF. Normal [facility] PROGRESS HNO ID: [id number] Author: Cayetano (Cassia Zapata MD Service: Orthopaedic [...] [facility] PRO[facility] HNO ID: [id number] Author: Tom Prescott DO Service: General Surgery [...] 0 Phosphate [Mass/Vol] 2.1 mg/dL Low 2.5-4.9 [facility] Comment on above: Performed By: #### M AG #### [place] [address] Vancomycin,Randomon 08-23-19 20 INR Coag (Bld) [Relative time] 22.0 mg/L Normal [facility] Comment on above: Result Comment: Trou gh 10.0-20.0 mg/L Peak 18.0-40.0 mg/L Performed By: #### C _ANA #### [place] [address] CONSULTon 08-22-2019 CONSULT HNO ID: [id number] Author: Paulo Fleming Service: Infectious Disease Author [...] no longer doing that Employment: work with [employer] CURRENT ANTIBIOTICS: Zosyn Clindamycin vancomycin Current other [...] 22, 2019 TIME: 1:42 PM PAGER/CONTACT #: [phone] [facility] CONSULT HNO ID: [id number] Author: Yadi Badillo Service: Orthopaedic Surgery Author Type: Physician Type: Consults Filed: 08/22/2019 6:41 PM Note Text: ORTHOPAEDIC SURGERY CONSULT Pt: ELIZABETH MODI Date of Consultation: 08/22/2019 Physician Consulted: Dr. Badillo Reason for Consultation: Necrotic foot HPI: 79 year old male presented to [facility] on 08/21/2019 with complaints of changes [...] Normal [facility] CONSULT HNO ID: [id number] Author: Ana Luisa Crooks Service: General Surgery [...] questions or concerns Mon-Fri 6a-5p please page [phone]. After 5pm and on Weekends and Holidays, please page [phone] if in ICU or [phone] if on RNF. Service date: 08/22/2019 Service time: 4:01 AM Reason for consult: foot wounds Nature of consult: routine Subjective HPI Mr. Modi is a 79 year old male with necrotic L foot. Patient reports that he has only noticed this over the last week. Initially presented to [place] for this reason and was transferred to [facility] for care. Denies pain and states [...] CONSULT PROGon 08-22-2019 CONSULT PROG HNO ID: [id number] Author: Adali Murry Service: Wound Care Team Author Type: Nurse Specialist Type: Consult Progress Note Filed: 08/22/2019 11:19 AM Note Text: WOUND CARE CONSULT RETAIL PERSONAL BANKER NOTE SERVICE DATE: 08/22/2019 SERVICE TIME: 09 TIME SPENT (minutes): 30 REASON FOR CONSULT: Eval R foot necrosis/wound CHIEF COMPLAINT: c/o necrotic toes and tissue to R foot. Subjective HISTORY OF PRESENT ILLNESS: Mr. Modi is a 79 year old male who is seen today with Yolanda Jackman Wound/hybrid derivatives trader, and presented to hospital with complaints of [...] found under the Get Images tab on [employer]. Photos are uploaded by the wound personal carer and may not be immediately available for viewing. Contact the wound and ostomy care department with questions. SIGNATURE: Adali Murry APRN.DIRECTOR OF PUPIL PERSONNEL PROGRAM PATIENT NAME: Elizabeth Modi DATE: August 22, 2019 TIME: 11:03 AM CONTACT#: [id number] [facility] CONSULT PROG HNO ID: [id number] Author: Jose Walton (Pharmacist) Service: Pharmacy Author [...] have any questions, please contact Pharmacy at [phone]. Age: [age] year old Allergies: ALLERGIES No [...] results found for: PEGGY Walton, Pharmacist Pager: [phone] Normal [facility] Comprehensive Panelon 2019 ALP [Catalytic activity/Vol] 107 U/L Normal 45-117 [facility] Comment on above: Performed By: #### C _ANA #### [place] [address] Bilirubin [Mass/Vol] 0.5 mg/dL Normal 0.2-1.0 [facility] Comment on above: Result Comment: Use of this assay is not recommended for patients undergoing treatment with eltrombopag due to the potential for falsely elevated results. Performed By: #### C _ANA #### [facility] [address] [place], [place] [address] Protein [Mass/Vol] 6.4 g/dL Normal 6.4-8.2 [facility] Comment on above: Performed By: #### C _ANA #### [facility] [address] [place], [place] [address] ALT [Catalytic activity/Vol] 73 U/L Normal 12-78 [facility] Comment on above: Performed By: #### C _ANA #### [facility] [address] [place], [place] [address] AST [Catalytic activity/Vol] 81 U/L High 15-37 [facility] Comment on above: Performed By: #### C _ANA #### [facility] [address] [place], [place] [address] Creatinine [Mass/Vol] 0.95 mg/dL Normal 0.67-1.17 [facility] Comment on above: Result Comment: Use of this assay is not recommended for patients undergoing treatment with phenindione, due to the potential for falsely depressed results. Performed By: #### C _ANA #### [facility] [address] [place], [place] [address] Albumin [Mass/Vol] 1.7 g/dL Low 3.4-5.0 [facility] Comment on above: Performed By: #### C _ANA #### [facility] [address] [place], [place] [address] Anion gap [Moles/Vol] 12 mmol/L Normal 8-16 [facility] Comment on above: Performed By: #### C _ANA #### [facility] [address] [place], [place] [address] Calcium [Mass/Vol] 7.1 mg/dL Low 8.5-10.1 [facility] Comment on above: Performed By: #### C _ANA #### [facility] [address] [place], [place] [address] CO2 [Moles/Vol] 21 mmol/L Normal 21-32 [facility] Comment on above: Performed By: #### C _ANA #### [facility] [address] [place], [place] [address] Glucose [Mass/Vol] 218 mg/dL High 70-99 [facility] Comment on above: Performed By: #### C _ANA #### [facility] [address] [place], [place] [address] Urea nitrogen [Mass/Vol] 31 mg/dL High 7-18 [facility] Comment on above: Performed By: #### C _ANA #### [facility] [address] [place], [place] [address] Chloride [Moles/Vol] 104 mmol/L Normal 98-107 [facility] Comment on above: Performed By: #### C _ANA #### [address] [address] Potassium [Moles/Vol] 4.1 mmol/L Normal 3.5-5.1 [facility] Comment on above: Performed By: #### C _ANA #### [address] [address] Sodium [Moles/Vol] 133 mmol/L Low 136-145 [facility] Comment on above: Performed By: #### C _ANA #### [address] [address] Cult and Smr CAROLINE and AERon 0 08-22-2019 Cult and Smr CAROLINE and AER Test performed at [facility] Rare Mixed skin javier. Moderate Mixed anaerobic javier. No Bacteroides fragilis group isolated. No Clostridium perfringens isolated. Many Gram positive cocci No WBC seen Rare Squamous epithelial cells Normal [facility] Comment on above: Performed By: #### C _ANA #### [address] [address] Ferritinon 08-22-2019 Ferritin [Mass/Vol] 1342.20 ng/mL High 26.00-3 88.0 0 [facility] Comment on above: Performed By: #### F ERR #### [address], [place] [address] Folateon 08-22-2019 Folate 3.80 ng/mL Normal 3.10-17.50 [facility] Comment on above: Performed By: #### P 8 #### [facility] [address] [place] [address] Hemogramon 08-22-2019 Erythrocyte distribution width (RBC) [Ratio] 13.2 % Normal 11.6-14.4 [facility] Comment on above: Performed By: #### F ERR #### [facility] [address] [place] [address] Hematocrit (Bld) [Volume fraction] 28.4 % Low 40.1-51.0 [facility] Comment on above: Performed By: #### F ERR #### [facility] [address] [place] [address] Hemoglobin (Bld) [Mass/Vol] 9.4 g/dL Low 13.7-17.5 [facility] Comment on above: Performed By: #### F ERR #### [facility] [address] [place] [address] MCH (RBC) [Entitic mass] 28.7 pg Normal 25.7-32.2 [facility] Comment on above: Performed By: #### F ERR #### [facility] [address] [place] [address] MCHC (RBC) [Mass/Vol] 33.1 % Normal 32.3-36.5 [facility] Comment on above: Performed By: #### F ERR #### [facility] [address] [place] [address] MCV (RBC) [Entitic vol] 86.9 fL Normal 83.2-95.6 [facility] Comment on above: Performed By: #### F ERR #### [facility] [address] [place] [address] Platelet mean volume (Bld) [Entitic vol] 9.7 fL Normal 8.7-12.0 [facility] Comment on above: Performed By: #### F ERR #### [place] [address] Platelets (Bld) [#/Vol] 380 thou/cmm High 141-365 [facility] Comment on above: Performed By: #### F ERR #### [facility] [address] [place] [address] RBC (Bld) [#/Vol] 3.27 mil/cmm Low 4.63-6.08 [facility] Comment on above: Performed By: #### F ERR #### [place] [address] RDW SD 41.6 fl Normal 36.1-45.8 [facility] Comment on above: Performed By: #### F ERR #### [place] [address] WBC (Bld) [#/Vol] 19.76 thou/cmm High 4.23-9.07 [facility] Comment on above: Performed By: #### F ERR #### [place] [address] Iron % Saturationon 08-22-19 20 Iron % Saturation 15 % Low 20-55 [facility] Comment on above: Performed By: #### M AG #### [place] [address] Iron Binding Cap. 150 ug/dL Low 250-450 [facility] Comment on above: Performed By: #### M AG #### [place] [address] Iron Serum 23 ug/dL Low 65-175 [facility] Comment on above: Performed By: #### M AG #### [place] [address] MRI FOOT/TOES WO IVCON RTon 08-22-2019 MRI FOOT/TOES WO IVCON RT * * *Final Rep ort* * * DATE OF EXAM: Aug 22 2019 12:23PM [facility] 0195 - MRI FOOT/TOES WO IVCON [...] be reactive or related to early osteomyelitis. Cigarette Carton Sealer: ONEL Transcribe Date/Time: Aug 22 2019 12:47P Dictated by : PRISCILA RUELAS MD This examination was interpreted and the report reviewed and electronically signed by: PRISCILA RUELAS MD on Aug 22 2019 1:06PM [facility] NURSING PROGon 08-22-2019 NURSING PROG HNO ID: [id number] Author: Marita (Rn) YURI Aponte Service: Nursing Author Type: Registered Nurse Type: Nursing Progress Note Filed: 08/22/2019 2:17 PM Note Text: Dr. Parmar into see pt. Pt to be scheduled for angiogram tomorrow. Pt states understanding of procedure Normal [facility] NUTRITIONon 08-22-2019 NUTRITION HNO ID: [id number] Author: Marisol Zimmerman) ALEIDA Falcon Service: Nutrition [...] of fat/muscle stores;Patient/family self-report Estimated kilocalorie needs: 3513-3823 Calorie Calculation Method: 30-35 kcals/kg Estimated protein [...] Inflammation: Hyperglycemia;Hypoalbu minemia;Imaging studies SIGNATURE: Kacie Marquez Plant Operations Manager PATIENT NAME: Elizabeth Modi DATE: August 22, 2019 TIME: 2:27 PM PAGER: [phone] [facility] PROGRESSon 08-22-2019 PROGRESS HNO ID: [id number] Author: Sue Bianchi Service: Hospital Medicine Author Type: Physician Type: Progress Notes Filed: 08/22/2019 3:29 PM Note Text: DEPARTMENT OF HOSPITAL MEDICINE PROGRESS NOTE SERVICE DATE: 08/22/2019 SERVICE TIME: 2:32 PM Hospital Medicine/Primary Attending: Sue Bianchi, DO NIGHT AND WEEKEND COVERAGE: After 7pm, please call cross cover pager #[phone] Subjective INTERVAL HPI: Patient seen and examined. [...] bowel sounds normally heard, no mass palpable DIRECTOR OF PUPIL PERSONNEL PROGRAM- cranial nerves 2 to 12 grossly intact, [...] 08/21/191914 vte non-pharmacologic prophylaxis - none indicated ([place]) 08/21/191914 activity - mobilize patient ([place]) VTE Prophylaxis: VTE prophylaxis appropriate Disposition: Home with [facility] Plan of care discussed with: Provider, RN, Patient SIGNATURE: Sue Bianchi DO PATIENT NAME: Elizabeth Modi DATE: August 22, 2019 TIME: 2:32 PM PAGER/CONTACT #: [phone] [facility] US ARTERIAL PVR [...] 40 mmHg Ankle dorsalis pedis: 39 mmHg BCEKI: 0.29 Ankle posterior tibial: 0 mmHg BECKI: [...] Interpreting physician: Ryan Allen MD Final RP Cigarette Carton Sealer: RICHARD Transcribe Date/Time: Aug 22 2019 9:04A Dictated by : RYAN ALLEN MD This examination was interpreted and the report reviewed and electronically signed by: RYAN ALLEN MD on Aug 22 2019 11:41AM EST Normal [facility] Vitamin B12on 08-22-2019 Cobalamin (Vitamin B12) [Mass/Vol] 944 pg/mL Normal [id number] [facility] Comment on above: Performed By: #### P 8 #### [place] [address] CONSULT PROGon 08-21-2019 CONSULT PROG HNO ID: [id number] Author: Rahat Lemus (Pharmacist) Service: Pharmacy Author Type: Pharmacist Type: Consult Progress Note Filed: 08/21/2019 9:20 PM Note Text: Renal Dose Monitoring 1. Estimated CrCl: 52 (calculated from previous lab reported from of 1.2 and using IBW) 2. Recommendations: Zosyn 3.375g Dose:No Change Frequency:Increase frequency to Q6H - Rationale: Patient CrCl is greater than 40 and being infused over 30 minutes Pharmacy [id number] [facility] CONSULT PROG HNO ID: [id number] Author: Rahat Lemus (Pharmacist) Service: Pharmacy Author [...] have any questions, [place] [phone]. Age: [age] year old Allergies: ALLERGIES No [...] HISTORY PHYSICALon 0 HISTORY PHYSICAL HNO ID: [id number] Author: Karyna Perez Service: Hospital Medicine Author [...] After 7pm, please call cross cover pager #[phone] Subjective CHIEF COMPLAINT / REASON FOR ADMISSION: [...] the right foot and was sent to [facility] for further evaluation.For this illness, patient's [...] this note may have been generated using Elivar voice recognition software. Reasonable efforts were made [...] After 7pm, please call cross cover pager #[phone] Subjective CHIEF COMPLAINT / REASON FOR ADMISSION: [...] the right foot and was sent to [facility] for further evaluation.For this illness, patient's [...] this note may have been generated using Elivar voice recognition software. Reasonable efforts were made [...] have any questions[place] [phone]. Age: [age] year old Allergies: ALLERGIES No [...] and being infused over 30 minutes Pharmacy [id number] Ana Luisa Crooks MD 08/22/2019 6:04 AM [...] questions or concerns Mon-Fri 6a-5p please page [phone]. After 5pm and on Weekends and Holidays, please page [phone] if in ICU or [phone] if on RNF. Service date: 08/22/2019 Service time: 4:01 AM Reason for consult: foot wounds Nature of consult: routine Subjective HPI Mr. Modi is a 79 year old male with necrotic L foot. Patient reports that he has only noticed this over the last week. Initially presented to [place] for this reason and was transferred to [facility] for care. Denies pain and states [...] HISTORY Diagnosis Date - DM (diabetes mellitus) ([facility]) - Dyslipidemia - HTN (hypertension) - [...] questions or concerns Mon-Fri 6a-5p please page [phone]. After 5pm and on Weekends and Holidays, please page [phone] if in ICU or [phone] if on RNF. Previous Version Jose Walton Pharmacist 08/22/2019 9:21 AM Addendum PHARMACY VANCOMYCIN DOSING NOTE Patient Name: Elizabeth NAVARRON: [id number] Admission Date: 08/21/2019 Date of Consult: 08/22/2019 [...] have any questions, please contact Pharmacy at [phone]. Age: [age] year old Allergies: ALLERGIES No [...] results found for: PEGGY Walton, Pharmacist Pager: [phone] Previous Version Adali Murry APRN.DIRECTOR OF PUPIL PERSONNEL PROGRAM 08/22/2019 11:19 AM Signed WOUND CARE CONSULT RETAIL PERSONAL BANKER NOTE SERVICE DATE: 08/22/2019 SERVICE TIME: 0910 TIME SPENT (minutes): 30 REASON FOR CONSULT: Eval R foot necrosis/wound CHIEF COMPLAINT: c/o necrotic toes and tissue to R foot. Subjective HISTORY OF PRESENT ILLNESS: Mr. Modi is a 79 year old male who is seen today with Yolanda Jackman Wound/hybrid derivatives trader, and presented to hospital with complaints of [...] found under the Get Images tab on [employer]. Photos are uploaded by the wound personal carer and may not be immediately available for viewing. Contact the wound and ostomy care department with questions. SIGNATURE: Adali Mrury APRN.CNS PATIENT NAME: Elizabeth Modi DATE: August 22, 2019 TIME: 11:03 AM CONTACT#: [id number] Yadi Badillo DPM 08/22/2019 6:41 PM Signed ORTHOPAEDIC SURGERY CONSULT Pt: ELIZABETH MODI Date of Consultation: 08/22/2019 Physician Consulted: Dr. Badillo Reason for Consultation: Necrotic foot HPI: 79 year old male presented to [facility] on 08/21/2019 with complaints of changes [...] of fat/muscle stores;Patient/family self-report Estimated kilocalorie needs: [id number] Calorie Calculation Method: 30-35 kcals/kg Estimated protein [...] of Inflammation: Hyperglycemia;Hypoalbu minemia;Imaging studies SIGNATURE: Kacie Marquez, Plant Operations Manager PATIENT NAME: Elizabeth Modi DATE: August 22, 2019 TIME: 2:27 PM PAGER: [phone] Previous Version Sue Bianchi DO 08/22/2019 3:29 PM Signed [facility] MEDICINE PROGRESS NOTE SERVICE DATE: 08/22/2019 SERVICE TIME: 2:32 PM Hospital Medicine/Primary Attending: Sue Bianchi DO NIGHT AND WEEKEND COVERAGE: After 7pm, please call cross cover pager #[phone] Subjective INTERVAL HPI: Patient seen and examined. [...] bowel sounds normally heard, no mass palpable DIRECTOR OF PUPIL PERSONNEL PROGRAM- cranial nerves 2 to 12 grossly intact, [...] 08/21/191914 vte non-pharmacologic prophylaxis - none indicated ([place]) 08/21/191914 activity - mobilize patient ([place]) VTE Prophylaxis: VTE prophylaxis appropriate Disposition: Home with [facility] Plan of care discussed with: Provider, RN, Patient SIGNATURE: Sue Bianchi DO PATIENT NAME: Elizabeth Modi DATE: August 22, 2019 TIME: 2:32 PM PAGER/CONTACT #: [phone] [phone] Gordo Figueroa MD 08/23/2019 1:07 PM Signed [facility] - Operative Report ELIZABETH MODI : 1940 AGE: 79. SEX: M PATIENT TYPE: I HOSP SVC: ORCA [facility] ATTENDING PHYSICIAN: Ara Singer M.D. CSN NUMBER: [id number] DATE OF SURGERY/PROCEDURE: 08/23/2019 INCISION/PROCEDURE START TIME: 8:42 AM INCISION CLOSE/PROCEDURE END TIME: 9:04 AM PREOPERATIVE DIAGNOSIS: Gangrenous changes of the right foot with gas in the subcutaneous tissues. POSTOPERATIVE DIAGNOSIS: Gangrenous changes of the right foot with gas in the subcutaneous tissues. SURGEON: Gordo Figueroa MD EXTRACTOR OPERATOR SOLVENT PROCESS: 1. Jennifer Crooks M.D. 2. Irvin Walker, surgical services asst. SURGERY/PROCEDURE: Guillotine right above ankle/below-knee amputation. ANESTHESIA: [...] recovery area in stable condition. MD DESMOND Ley:[id number] /[id number] Previous Version Doris Eden MD 08/25/2019 9:16 AM Signed [facility] - Consultation PATIENT NAME: ELIZABETH MODI CSN: [id number] DATE OF : 1940 SEX/AGE: M/79 PATIENT TYPE: I HOSP SVC: ORCA LOCATION: [id number] DATE OF SERVICE: 08/23/2019 TIME OF SERVICE: [...] Lantus 10. Doris Eden MD Endocrinology SM:modserene /[id number] Tom Prescott DO, DO 08/23/2019 1:43 AM [...] questions or concerns Mon-Fri 6a-5p please page [phone]. After 5pm and on Weekends and Holidays, [...] Units SUBCUTANEOUS q 12 H Mohammad F Mormon 5,000 Units at 08/22/19 0807 - [MAR Hold due to Transfer] aluminum-magnesium hydroxide-simethicone 200-200-20 mg/5 mL 30 mL (MAALOX,MYLANTA,MAG-AL PLUS) 30 mL ORAL DAILY PRN Mohammad F Mormon - [MAR Hold due to Transfer] ondansetron 4 mg tab(s) (ZOFRAN) 4 mg ORAL q 6 H PRN Mohammad F Mormon Or - [MAR Hold due to Transfer] ondansetron (PF) 4 mg injection (ZOFRAN) 4 mg INTRAVENOUS q 6 H PRN Mohammad F Mormon - [MAR Hold due to Transfer] polyethylene glycol 3350 17 g packet (MIRALAX, GLYCOLAX) 17 g ORAL DAILY PRN Mohammad F Mormon - [MAR Hold due to Transfer] docusate sodium 100 mg cap(s) (COLACE) 100 mg ORAL BID PRN Mohammad F Mormon - [MAR Hold due to Transfer] magnesium hydroxide 400 mg/5 mL 30 mL (MOM) 30 mL ORAL DAILY PRN Mohammad F Mormon - [MAR Hold due to Transfer] bisacodyl 10 mg suppository (DULCOLAX) 10 mg RECTAL DAILY PRN Mohammad F Mormon - [MAR Hold due to Transfer] acetaminophen 650 mg tab(s) (TYLENOL) 650 mg ORAL q 6 H PRN Mohammad F Mormon - [MAR Hold due to Transfer] atorvastatin 40 mg tab(s) (LIPITOR) 40 mg ORAL DAILY Mohammad F Mormon 40 mg at 08/22/192009 - [MAR Hold due to Transfer] lisinopril 10 mg tab(s) (ZESTRIL, PRINIVIL) 10 mg ORAL DAILY Mohammad F Mormon 10 mg at 08/22/19 0807 - [MAR Hold due to Transfer] levothyroxine 25 mcg tab(s) (SYNTHROID) 25 mcg ORAL DAILY Mohammad F Mormon 25 mcg at 08/22/19 0600 - [MAR Hold due to Transfer] insulin lispro pen (rapid acting) (HumaLOG KWIKPEN) SUBCUTANEOUS w MEALS AND HS Mohammad F Mormon 1 Units at 08/22/192128 - [MAR Hold due to Transfer] dextrose 40 % 15 g 15 g ORAL PRN Mohammad F Mormon Or - [MAR Hold due to Transfer] glucagon 1 mg injection (GLUCAGEN) 1 mg INTRAMUSCULAR PRN Mohammad F Mormon Or - [MAR Hold due to Transfer] dextrose 50% in water 25 mL syringe 12.5 g INTRAVENOUS PRN Mohammad F Mormon - [MAR Hold due to Transfer] vancomycin iv piggyback 1.25 g in D5W 250 mL (VANCOCIN) 1.25 g INTRAVENOUS q 12 HR Mohammad F Mormon 250 mL/hr at 08/22/192009 1.25 g at 08/22/192009 - [MAR Hold due to Transfer] vancomycin dosing and monitoring per pharmacy OTHER As Directed Mohammad F Mormon - [MAR Hold due to Transfer] piperacillin-tazobacta m iv piggyback 3.375 g in dextrose (iso-osmotic) 50 mL (ZOSYN) 3.375 g INTRAVENOUS q 6 H Mohammad F Mormon 100 mL/hr at 08/23/19 0549 3.375 g at 08/23/19 0549 - [MAR Hold due to Transfer] clindamycin iv piggyback 600 mg in D5W 50 mL (CLEOCIN) 600 mg INTRAVENOUS q 6 H Mohammad F Mormon 100 mL/hr at 08/23/19 0549 600 mg [...] August 23, 2019 TIME: 8:32 AM CSN: [id number] Previous Version Tom Prescott DO, DO 08/23/2019 [...] questions or concerns Mon-Fri 6a-5p please page [phone]. After 5pm and on Weekends and Holidays, please page [phone] if in ICU or [phone] if on RNF. Subjective SUBJECTIVE: Patient seen [...] 0659 08/23/19 07 - 08/24/19 0659 Shift 5124-5231 1924-9348 7996-0561 24 Hour Total 8273-9667 5247-9614 4537-4295 24 Hour Total INTAKE PO 240 240 PO 240 240 Shift Total 240 240 OUTPUT Urine 500 732 337 1721 Void (ml) 500 376 326 2788 Shift Total 500 585 875 5949 Weight (kg) 85 85 85 85 85 [...] and plan discussed with attending: Dr. Figueroa, automotive fuel injection servicer for Dr. Parmar SIGNATURE: Tom Prescott DO [...] assistance of the resident and the surgical services asst BRIEF OP / PROCEDURE NOTE LOG ID: [id number] Surgery/Procedure Date: 08/23/2019 Incision/Procedure Start Time: 8:42 AM Incision Close/Procedure End Time: 9:04 AM Surgeon(s)/Procedurali st(s) and Fagot Heater Helper(s): Surgeon(s) and Role: * Gordo Figueroa - [...] 23, 2019 TIME: 9:29 AM PAGER/CONTACT #: jS Huizar DO 08/23/2019 11:24 AM Signed POST [...] After 7pm, please call cross cover pager #[phone] Subjective INTERVAL HPI: Patient seen and examined. [...] bowel sounds normally heard, no mass palpable DIRECTOR OF PUPIL PERSONNEL PROGRAM- cranial nerves 2 to 12 grossly intact, [...] indicated ([place]) 08/21/191914 activity - mobilize patient ([place]) VTE Prophylaxis: VTE prophylaxis appropriate Disposition: Home with [facility] Plan of care discussed with: Provider, RN, Patient SIGNATURE: Sue Bianchi DO PATIENT NAME: Elizabeth Modi DATE: August 23, 2019 TIME:12:20 PM PAGER/CONTACT #: [phone] Doris Eden MD 08/23/2019 1:21 PM Signed [...] Prior to Discharge: OT/PT Evaluation;Discharge Transportation;[facility] Facility;Precertificat ion MEDICAL: [facility] 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 Last discharge within 30 days: No Advance Directive: Current Advance Directive: None Keyliner Attempted to Assist with AD Completion: Yes [...] Mostly I feel financially burdened by my off-nz-bdalcc expenses for my prescription medication:: 0 - Agree Somewhat Risk Score: 0 Patient is categorized as: Low risk < 2 Are you interested in bedside delivery of your medications? No Is Patient Psychosocially Complex?: No ASSESSMENT AND PLAN: Medical Needs: Medical Needs: None Psychosocial Needs: Psychosocial Needs: None FREEDOM OF CHOICE EXPLAINED: [place] of Choice Given: Yes Level of Care Discussed: Inpatient Rehab Facility Financial Disclosure Provided: Yes Financial Disclosure Comments: ESR Provider List: (Pt refused list- would like [facility]. ) POTENTIAL TRANSITION PLANS Rehab Facility Spoke with pt at the bedside. 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 Pt states that he has a PCP in [place]. Pt is s/p right foot amp. Anticipate AR needs at d/c. Await PT/OT suzy. Pt would like [facility]- referral sent. Pt will need auth and likely transport at d/c. Will follow. SIGNATURE: Tami Patricio RN PATIENT NAME: Elizabeth Modi DATE: August 23, 2019 TIME: 3:18 PM PAGER/CONTACT #: [phone] Paulo Fleming MD 08/23/2019 3:55 PM Addendum [...] labs Paulo Fleming MD Infectious Disease Respiratory [place] Pager: [phone] August 23, 2019 Previous Version ISAC NAVARRO [...] have any questions[place] [phone]. Age: [age] year old Allergies: ALLERGIES No [...] questions or concerns Mon-Fri 6a-5p please page [phone]. After 5pm and on Weekends and Holidays, please page [phone] if in ICU or [phone] if on [...] 0659 08/24/19 07 - 03/08/20 0659 Shift 3580-7494 9295-2551 2713-1089 24 Hour Total 2188-1158 1735-9960 4380-3454 24 Hour Total INTAKE IV 625 625 OR Crystalloid intake (mL) 250 250 Volume (mL) (lactated ringers infusion) 125 125 Volume (mL) (vancomycin iv piggyback 1.25 g in D5W 250 mL (VANCOCIN)) 250 250 Shift Total 625 625 OUTPUT Urine 603 156 6237 Void (ml) 937 803 2041 Blood 50 50 Estimated Blood loss 50 50 Shift Total 275 469 2503 Weight (kg) 85 85 85 85 85 [...] 3 g in NaCl 0.9% 100 mL MB+/ADD-[place] (UNASYN) 3 g INTRAVENOUS q 6 H [...] pharmacy if questions. MARTHA RYAN PHARMACIST Ext: [phone] Edy Paredes MD 08/24/2019 9:20 AM Signed Edy Paredes MD, MS, FACP, [facility] Division of Infectious Diseses [address] [place] [id number] Office: [phone] INFECTIOUS DISEASE CONSULT PROGRESS NOTE SERVICE DATE: [...] off. SIGNATURE: Edy Paredes MD, MS, FACP, [facility] PATIENT NAME: Elizabeth Modi DATE: August 24, 2019 TIME: 9:16 AM PAGER/CONTACT #: [phone] Sue Bianchi DO 08/24/2019 5:16 PM Signed [facility] MEDICINE PROGRESS NOTE SERVICE DATE: 08/24/2019 SERVICE TIME: 12:40 PM Hospital Medicine/Primary Attending: Sue Bianchi DO NIGHT AND WEEKEND COVERAGE: After 7pm, please call cross cover pager #[phone] Subjective INTERVAL HPI: Patient seen and examined. [...] bowel sounds normally heard, no mass palpable DIRECTOR OF PUPIL PERSONNEL PROGRAM- cranial nerves 2 to 12 grossly intact, [...] 08/21/191914 vte non-pharmacologic prophylaxis - none indicated ([place]) 08/21/191914 activity - mobilize patient ([place]) VTE Prophylaxis: VTE prophylaxis appropriate Disposition: Home with [facility] Plan of care discussed with: Provider, RN, Patient SIGNATURE: Sue Bianchi DO PATIENT NAME: Elizabeth Modi DATE: August 24, 2019 TIME:12:40 PM PAGER/CONTACT #: [phone] Susan Miner OTR/Serene 08/24/2019 1:07 PM Signed Occupational Therapy Evaluation SERVICE DATE: 08/24/2019 SERVICE TIME: 1133 to 1208 ROOM: [place] [address] Recommended Discharge Disposition: Acute Rehab Justification For [...] (ADL);General symptoms and signs-other Interventions Provided: Evaluation;Self Retirement Management (02784) $ Evaluation-Moderate (36769) Billed Units: 1 unit OT Evaluation Moderate [...] occupational performance: thyroid, HTN, DM, claudication Self Retirement Management (31499) Treatment Minutes: 10 1 unit Skilled Intervention(s): [...] lower extremity. 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 Patient agreeable to (more content not included)... Normal [facility] No Panel Information [facility] Vital Signs Date Time Vital Sign Value Performing Clinician Facility 10-16-2024 07:59-0400 Body height 167.[address] Diana Salmeron MD Work Phone: [facility] 10-16-2024 07:59-0400 Body mass index (BMI) [Ratio] 29 kg/m2 Dr. Diana Salmeron MD Work Phone: [facility] 10-16-2024 07:59-0400 Body weight 81.[address] Diana Salmeron MD Work Phone: [facility] 10-16-2024 07:59-0400 Diastolic blood pressure 74 mm[Hg] Dr. Diana Salmeron MD Work Phone: [facility] 10-16-2024 07:59-0400 Heart rate 64 /min Dr. Diana Salmeron MD Work Phone: [facility] 10-16-2024 07:59-0400 Respiratory rate 18 /min Dr. Diana Salmeron MD Work Phone: [facility] 10-16-2024 07:59-0400 Systolic blood pressure 131 mm[Hg] Dr. Diana Salmeron MD Work Phone: [facility] 10-16-2024 00:07-0400 Body temperature 97.8 [degF] Dr. Diana Salmeron MD Work Phone: [facility] 10-16-2024 00:07-0400 Diastolic blood pressure 76 mm[Hg] Dr. Diana Salmeron MD Work Phone: [facility] 10-16-2024 00:07-0400 Heart rate 68 /min Dr. Diana Salmeron MD Work Phone: [facility] 10-16-2024 00:07-0400 Respiratory rate 16 /min Dr. Diana Salmeron MD Work Phone: [facility] 10-16-2024 00:07-0400 SaO2% (BldA) [Mass fraction] 97 % Dr. Diana Salmeron MD Work Phone: [facility] 10-16-2024 00:07-0400 Systolic blood pressure 148 mm[Hg] Dr. Diana Salmeron MD Work Phone: [facility] 10-15-2024 17:47-0400 Body mass index (BMI) [Ratio] 29.9 kg/m2 Dr. Diana Salmeron MD Work Phone: [facility] 10-15-2024 17:47-0400 Body weight [address] Diana Salmeron MD Work Phone: [facility] 10-15-2024 16:00-0400 Body height 167.[address] Diana Salmeron MD Work Phone: [facility] 10-01-2024 13:22-0400 Body height 167.6 cm Nikolai Connor PA-C Work Phone: [facility] Comment on above: After amputations per patient. 10-01-2024 13:22-0400 Body temperature 97.3 [degF] Nikolai Connor PA-C Work Phone: [facility] 10-01-2024 13:22-0400 Diastolic blood pressure 82 mm[Hg] Nikolai Connor PA-C Work Phone: [facility] Comment on above: Mario notified of blood pressure- pat ient aware to let staff where he resides know of his blood pressure. 10-01-2024 13:22-0400 Heart rate 62 /min Nikolai Connor PA-C Work Phone: [facility] 10-01-2024 13:22-0400 Respiratory rate 14 /min Nikolai Connor PA-C Work Phone: [facility] 10-01-2024 13:22-0400 SaO2% (BldA) [Mass fraction] 97 % Nikolai Connor PA-C Work Phone: [facility] 10-01-2024 13:22-0400 Systolic blood pressure 182 mm[Hg] Nikolai Connor PA-C Work Phone: [facility] Comment on above: Mario notified of blood pressure- pat ient aware to let staff where he resides know of his blood pressure. 01-11-2023 12:58-0400 Body temperature 97.4 [degF] Dr. Dexter Reyes Work Phone: [facility] 01-11-2023 12:58-0400 Diastolic blood pressure 65 mm[Hg] Dr. Dexter Reyes Work Phone: [facility] 01-11-2023 12:58-0400 Heart rate 66 /min Dr. Dexter Reyes Work Phone: [facility] 01-11-2023 12:58-0400 Respiratory rate 17 /min Dr. Dexter Reyes Work Phone: [facility] 01-11-2023 12:58-0400 Systolic blood pressure 113 mm[Hg] Dr. Dexter Reyes Work Phone: [facility] 12-17-2022 12:00-0400 Body temperature 98.8 [degF] Dr. Dexter Reyes Work Phone: [facility] 12-17-2022 12:00-0400 Diastolic blood pressure 68 mm[Hg] Dr. Dexter Reyes Work Phone: [facility] 12-17-2022 12:00-0400 Heart rate 60 /min Dr. Dexter Reyes Work Phone: [facility] 12-17-2022 12:00-0400 Inhaled oxygen flow rate 2 L/min Dr. Dexter Reyes Work Phone: 8(635)231-559312 [place] [address] 12-17-2022 12:00-0400 Respiratory rate 18 /min Dr. Dexter Reyes Work Phone: 0(902)502-073512 [place] [address] 12-17-2022 12:00-0400 SaO2% (BldA) [Mass fraction] 95 % Dr. Dexter Reyes Work Phone: 8(204)782-084412 [place] [address] 12-17-2022 12:00-0400 Systolic blood pressure 147 mm[Hg] Dr. Dexter Reyes Work Phone: 9(195)297-207312 [place] [address] 12-17-2022 06:00-0400 Body mass index (BMI) [Ratio] 32.6 kg/m2 Dr. Dexter Reyes Work Phone: [facility] 12-17-2022 06:00-0400 Body weight 92.[address] Dexter Reyes Work Phone: [facility] 12-15-2022 20:05-0400 Inhaled oxygen concentration 4 % Dr. Dexter Reyes Work Phone: [facility] 12-15-2022 10:54-0400 Body height 167.[address] Dexter Reyes Work Phone: [facility] 09-01-2022 09:59-0400 Body temperature 97.7 [degF] Shana Delgado MD Work Phone: [facility] 09-01-2022 09:59-0400 Diastolic blood pressure 68 mm[Hg] Shana Delgado MD Work Phone: [facility] 09-01-2022 09:59-0400 Heart rate 66 /min Shana Delgado MD Work Phone: [facility] 09-01-2022 09:59-0400 Systolic blood pressure 135 mm[Hg] Shana Delgado MD Work Phone: [facility] 01-13-2022 13:09-0400 Heart rate 79 /min DR KARL BARRERA MD [facility] 01-13-2022 11:36-0400 Body temperature 97.88 [degF] DR KARL BARRERA MD [address] 01-13-2022 11:36-0400 Diastolic Blood Pressure NBP [address] KARL BARRERA MD [address] 01-13-2022 11:36-0400 Heart rate 79 /min DR KARL BARRERA MD [address] 01-13-2022 11:36-0400 Mean blood pressure 79 mm[Hg] DR KARL BARRERA MD [address] 01-13-2022 11:36-0400 Reason For Taking VItal Signs DR KARL BARRERA MD [address] 01-13-2022 11:36-0400 Respiratory rate 18 /min DR KARL BARRERA MD [facility] 01-13-2022 11:36-0400 Systolic Blood Pressure NBP [address] KARL BARRERA MD [address] 01-13-2022 08:42-0400 Heart rate 81 /min DR KARL BARRERA MD [facility] 01-13-2022 08:42-0400 Heart rate 82 /min DR KARL BARRERA MD [facility] 01-13-2022 07:06-0400 Body temperature 97.52 [degF] DR KARL BARRERA MD [address] [place] [address] 01-13-2022 07:06-0400 Diastolic Blood Pressure NBP [address] KARL BARRERA MD [address] [place] [address] 01-13-2022 07:06-0400 Mean blood pressure 79 mm[Hg] DR KARL BARRERA MD [address] [place] [address] 01-13-2022 07:06-0400 Reason For Taking VItal Signs DR KARL BARRERA MD [address] [place] [address] 01-13-2022 07:06-0400 Respiratory rate 18 /min DR KARL BARRERA MD [address] [place] [address] 01-13-2022 07:06-0400 Systolic Blood Pressure NBP [address] KARL BARRERA MD [address] [place] [address] 01-13-2022 04:52-0400 Body temperature 97.7 [degF] DR KARL BARRERA MD [address] [place] [address] 01-13-2022 04:52-0400 Diastolic Blood Pressure NBP [address] KARL BARRERA MD [address] [place] [address] 01-13-2022 04:52-0400 Mean blood pressure 83 mm[Hg] DR KARL BARRERA MD [address] [place] [address] 01-13-2022 04:52-0400 Reason For Taking VItal Signs DR KARL BARRERA MD [address] [place] [address] 01-13-2022 04:52-0400 Respiratory rate 18 /min DR KARL BARRERA MD [address] [place] [address] 01-13-2022 04:52-0400 Systolic Blood Pressure NBP [address] KARL BARRERA MD [address] [place] [address] 01-12-2022 16:59-0400 Heart rate 71 /min DR KARL BARRERA MD [address] [place] [address] 01-12-2022 09:02-0400 Heart rate 71 /min DR KARL BARRERA MD [address] [place] [address] 01-11-2022 04:44-0400 Diastolic blood pressure 79 mm[Hg] DR KARL BARRERA MD [address] [place] [address] 01-11-2022 04:44-0400 Mean blood pressure 110 mm[Hg] DR KARL BARRERA MD [address] [place] [address] 01-11-2022 04:44-0400 Systolic blood pressure 171 mm[Hg] DR KARL BARRERA MD [address] [place] [address] 01-11-2022 04:02-0400 Diastolic blood pressure 71 mm[Hg] DR KARL BARRERA MD [address] [place] [address] 01-11-2022 04:02-0400 Mean blood pressure 105 mm[Hg] DR KARL BARRERA MD [address] [place] [address] 01-11-2022 04:02-0400 Systolic blood pressure 173 mm[Hg] DR KARL BARRERA MD [address] [place] [address] 01-10-2022 02:13-0400 Diastolic blood pressure 73 mm[Hg] DR KARL BARRERA MD [address] [place] [address] 01-10-2022 02:13-0400 Systolic blood pressure 179 mm[Hg] DR KARL BARRERA MD [address] [place] [address] 01-10-2022 01:27-0400 Signs/Symptoms Transfusion Reaction DR KARL BARRERA MD [address] 01-10-2022 01:27-0400 Transfusion Documentation Ended/Paper DR KARL BARRERA MD [address] [place] [address] 01-10-2022 00:56-0400 Signs/Symptoms Transfusion Reaction DR KARL BARRERA MD [address] 01-10-2022 00:27-0400 Heart rate 63 /min DR KARL BARRERA MD [address] [place] [address] 01-10-2022 00:11-0400 Signs/Symptoms Transfusion Reaction No DR KARL BARRERA MD [address] [place] [address] 01-10-2022 00:11-0400 Heart rate 64 /min DR KARL BARRERA MD [address] [place] [address] 01-09-2022 22:36-0400 Transfusion Documentation Started/Paper DR KARL BARRERA MD [address] [place] [address] 01-06-2022 09:26-0400 Diastolic blood pressure 45 mm[Hg] DR KARL BARRERA MD [address] [place] [address] 01-06-2022 09:26-0400 Mean blood pressure 64 mm[Hg] DR KARL BARRERA MD [address] [place] [address] 01-06-2022 09:26-0400 Systolic blood pressure 103 mm[Hg] DR KARL BARRERA MD [address] [place] [address] 01-06-2022 08:38-0400 Diastolic blood pressure 50 mm[Hg] DR KARL BARRERA MD [address] [place] [address] 01-06-2022 08:38-0400 Mean blood pressure 69 mm[Hg] DR KARL BARRERA MD [address] [place] [address] 01-06-2022 08:38-0400 Systolic blood pressure 107 mm[Hg] DR KARL BARRERA MD [address] [place] [address] 01-06-2022 07:40-0400 Diastolic blood pressure 45 mm[Hg] DR KARL BARRERA MD [address] [place] [address] 01-06-2022 07:40-0400 Mean blood pressure 66 mm[Hg] DR KARL BARRERA MD [address] [place] [address] 01-06-2022 07:40-0400 Systolic blood pressure 113 mm[Hg] DR KARL BARRERA MD [address] [place] [address] 01-05-2022 20:12-0400 SaO2% (BldA) [Mass fraction] 98.4 % DR KARL BARRERA MD [facility] 01-05-2022 18:47-0400 SaO2% (BldA) [Mass fraction] 97.6 % DR KARL BARRERA MD [facility] 01-05-2022 17:13-0400 SaO2% (BldA) [Mass fraction] 97.7 % DR KARL BARRERA MD [facility] 01-05-2022 12:30-0400 Body temperature 98.98 [degF] DR KARL BARRERA MD [address] [place] [address] 01-05-2022 12:25-0400 Body temperature 99 [degF] DR KARL BARRERA MD [address] [place] [address] 01-05-2022 12:20-0400 Body temperature 99.07 [degF] DR KARL BARRERA MD [address] [place] [address] 01-05-2022 12:20-0400 Body temperature 98.51 [degF] DR KARL BARRERA MD [address] [place] [address] 01-05-2022 12:15-0400 Body temperature 98.6 [degF] DR KARL BARRERA MD [address] [place] [address] 01-05-2022 12:10-0400 Body temperature 98.67 [degF] DR KARL BARRERA MD [address] [place] [address] 01-05-2022 11:54-0400 SaO2% (BldA) [Mass fraction] 98.2 % DR KARL BARRERA MD [facility] 01-05-2022 11:19-0400 SaO2% (BldA) [Mass fraction] 99.4 % DR KARL BARRERA MD [facility] 01-05-2022 10:44-0400 SaO2% (BldA) [Mass fraction] 99.4 % DR KARL BARRERA MD [facility] 01-03-2022 23:07-0400 Mean blood pressure 83 mm[Hg] DR KARL BARRERA MD [address] [place] [address] 01-03-2022 12:05-0400 Body height [address] KARL BARRERA MD [address] 01-03-2022 12:05-0400 Body weight 81.[address] KARL BARRERA MD [address] [place] [address] 01-03-2022 12:05-0400 Body weight 35.28 kg/m2 DR KARL BARRERA MD [address] 01-03-2022 04:54-0400 Body weight 81.[address] KARL BARERRA MD [address] 12-31-2021 03:38-0400 Heart rate 80 /min DR KARL BARRERA MD [address] 12-30-2021 05:08-0400 Body weight 103.[address] KARL BARRERA MD [facility] 02-09-2021 12:00-0400 Diastolic blood pressure 53 mm[Hg] Ammy Vicente MD Work Phone: [facility] Work Phone: 02-09-2021 12:00-0400 Heart rate 51 /min Ammy Vicente MD [facility] Work Phone: 02-09-2021 12:00-0400 SaO2% (BldA) [Mass fraction] 91 % Ammy Vicente MD [facility] Work Phone: 02-09-2021 12:00-0400 Systolic blood pressure 110 mm[Hg] Ammy Vicente MD Work Phone: [facility] Work Phone: 02-09-2021 11:45-0400 Respiratory rate 16 /min Ammy Vicente MD Work Phone: [employer] Work Phone: 02-09-2021 10:58-0400 Body temperature 98.1 [degF] Ammy Vicente MD Work Phone: [employer] Work Phone: 02-09-2021 08:21-0400 Body height 142.2 cm Ammy Vicente MD Work Phone: [employer] Work Phone: 02-09-2021 08:21-0400 Body mass index (BMI) [Ratio] 36.77 kg/m2 Ammy Vicente MD Work Phone: [employer] Work Phone: 02-09-2021 08:21-0400 Body weight 74.39 kg Ammy Vicente MD Work Phone: [employer] Work Phone: Encounters Encounter Date Encounter Type Care Provider Facility Start: 04-23-2025 ambulatory Victor M matute OLS Facility:[facility] Start: 04-17-2025 End: 04-17-2025 ambulatory Diana Apontef Facility:[facility] Start: 03-19-2025 ambulatory Victor M matute OLS Facility:[facility] Start: 02-24-2025 End: 02-24-2025 ambulatory Christina Whipple NP Facility:[facility] Start: 02-19-2025 ambulatory Victor M matute OLS Facility:[facility] Start: 02-11-2025 ambulatory Victor M matute OLS Facility:[facility] Start: 02-11-2025 [facility]: 02-04-2025 ambulatory Victor M matute OLS Facility:[facility] Start: 02-04-2025 [facility] Start: 01-28-2025 End: 01-28-[address] Victor M Rojas MD -[facility] Work Phone: Start: 01-28-2025 End: 01-28-[address] Diana Salmeron MD Work Phone: [facility] Start: 01-28-2025 Registered Referred Victor M Rojas MD [facility] Start: 01-22-2025 ambulatory Victor M DAVID Facility:[facility] Start: 01-22-2025 Registered Referred Victor M Rojas MD [facility] Start: 01-20-2025 ambulatory [facility] Start: 01-20-2025 Registered Referred Victor M Rojas MD [facility] Start: 01-14-2025 End: 01-14-2025 ambulatory GAYLA CLINE Facility:[id number] Start: 01-14-2025 End: 01-14-2025 Patient encounter procedure Gayla Cline MD Work Phone: Urology Comment on above: Gross hematuria (Margarita dariel Dx); Left renal mass Start: 12-24-2024 End: 12-24-[address] Diana Salmeron MD Work Phone: [facility] Start: 12-24-2024 End: 12-24-2024 Patient encounter procedure Christina Whipple [facility] -[facility] Work Phone: Start: 12-18-2024 ambulatory Victor M DAVID Facility:[facility] Start: 12-18-2024 Registered Referred Victor M Rojas MD [facility] Start: 12-03-2024 End: 12-03-[address] Diana Salmeron MD Work Phone: [facility] Start: 12-03-2024 End: 12-03-[address] Victor M Rojas MD [facility] Work Phone: Start: 11-20-2024 ambulatory Victor M DAVID Facility:[facility] Start: 11-20-2024 Registered Referred Victor M Rojas MD -[facility] Start: 11-07-2024 End: 11-07-[address] Diana Salmeron MD Work Phone: -[facility] Start: 11-07-2024 End: 11-07-2024 Departed Referred Christina Johanseneliane [employer]PERATOR-C -[facility] Start: 11-07-2024 Registered Referred Christina louiseliane [employer] M[employer] PRESS OPERATOR-C [facility] Start: 11-07-2024 End: 11-07-2024 ambulatory Christina Whipple OLS Facility:[facility] Start: 10-23-2024 End: 10-23-[address] Diana Salmeron MD Work Phone: [facility] Work Phone: Start: 10-23-2024 End: 10-23-2024 Departed Referred Victor M Rojas MD -[facility] Start: 10-23-2024 End: 10-23-2024 ambulatory Victor M Rojas OLS Facility:[facility] Start: 10-16-2024 End: 10-16-2024 Patient encounter procedure Lauren Hutchison [place] [facility] Work Phone: Start: 10-16-2024 End: 10-16-2024 ambulatory Diana Salmeron Facility:[facility] Start: 10-15-2024 End: 10-16-2024 Emergency department patient visit Dr. Diana Salmeron MD Work Phone: -Emergency Department Work Phone: Start: 10-04-2024 End: 12-04-2024 Follow-up encounter Nikolai Connor PA-C Work Phone: Urology Start: 10-01-2024 End: 10-04-2024 Telephone encounter Nikolai Connor PA-C Work Phone: Urology Start: 10-01-2024 End: 10-01-2024 ambulatory NIKOLAI CONNOR Facility:[facility] Start: 10-01-2024 End: 10-01-2024 Patient encounter procedure Nikolai Connor PA-C Work Phone: Urology Comment on above: Gross hematuria (Margarita dariel Dx); Screening for genitourinary condition Start: 09-24-2024 End: 09-24-[address] Diana Salmeron MD Work Phone: [facility] Work Phone: Start: 09-24-2024 End: 09-24-[address] Victor M Rojas MD -[facility] Work Phone: Start: 09-18-2024 End: 09-18-[address] Diana Salmeron MD Work Phone: [facility] Work Phone: Start: 09-18-2024 End: 09-18-2024 Departed Referred Victor M Rojas MD -[facility] Start: 09-18-2024 Registered Referred Victor M Rojas MD -[facility] Start: 09-18-2024 End: 09-18-2024 ambulatory Victor M DAVID Facility:[facility] Start: 09-06-2024 End: 09-06-2024 Patient encounter procedure Kacie GARLAND -[facility] Work Phone: Start: 09-06-2024 End: 09-06-2024 ambulatory Diana Salmeron Facility:[facility] Start: 09-05-2024 End: 09-05-2024 ambulatory Christina Whipple NP Facility:[facility] Start: 09-05-2024 End: 09-05-2024 Patient encounter procedure Christina Whipple NP-C -[facility] Work Phone: Start: 09-03-2024 End: 09-03-2024 ambulatory Christina Whipple NP Facility:[facility] Start: 09-03-2024 End: 09-03-2024 Patient encounter procedure Christina Whipple NP-C -[facility] Work Phone: Start: 08-21-2024 End: 08-21-[address] Diana Salmeron MD Work Phone: [facility] Work Phone: Start: 08-21-2024 End: 08-21-2024 [facility] Start: 08-21-2024 End: 08-21-2024 ambulatory Butros Latouf Facility:[facility] Start: 08-01-2024 ambulatory Butros Latouf Facility: [facility] Start: 08-01-2024 [facility] Start: 07-30-2024 ambulatory Butros Latouf Facility: [facility] Start: 07-24-2024 ambulatory Butros Latouf Facility: [facility] Start: 07-24-2024 Registered Referred Victor M Rojas MD [facility] Start: 07-23-2024 End: 07-23-2024 ambulatory Victor M Rojas Facility:[facility] Start: 07-23-2024 End: 07-23-[address] Victor M Rojas MD -[facility] Work Phone: Start: 07-05-2024 End: 07-05-2024 ambulatory Butros Latouf Facility:[facility] Start: 07-05-2024 End: 07-05-2024 Patient encounter procedure Christina RIVERA -[facility] Work Phone: Start: 07-02-2024 End: 07-02-2024 ambulatory Nikolai Connor PA-C Work Phone: Urology Comment on above: CT urogram results Start: 07-02-2024 End: 07-02-2024 E-mail encounter from caregiver Nikolai Connor PA-C Work Phone: Urology Start: 06-28-2024 End: 06-28-2024 ambulatory NIKOLAI CONNOR Facility:[facility] Start: 06-28-2024 End: 06-28-2024 Subsequent hospital visit by physician [facility] ([facility]) Work Phone: Cat Scan Comment on above: Gross hematuria [R31 .0] Start: 06-27-2024 ambulatory Butros Latouf Facility: [facility] Start: 06-27-2024 Registered Referred Victor M Rojas MD -[facility] Start: 06-21-2024 End: 07-09-2024 Telephone encounter Nikolai Connor PA-C Work Phone: Urology Comment on above: Results Start: 06-20-2024 ambulatory Butros Latouf Facility: [facility] Start: 06-20-2024 Registered Referred Victor M Rojas MD -[facility] Start: 06-18-2024 End: 06-18-2024 ambulatory NIKOLAI CONNOR Facility:[facility] Start: 06-18-2024 End: 06-18-2024 Patient encounter procedure Nikolai Connor PA-C Work Phone: Urology Comment on above: Screening for genito urinary condition (Primary Dx); Gross hematuria; Left renal mass Start: 06-17-2024 End: 06-17-2024 Patient encounter procedure Christina RIVERA -[facility] Work Phone: Start: 06-17-2024 End: 06-17-2024 ambulatory Butros Latouf Facility:[facility] Start: 06-17-2024 Registered Referred Victor M Rojas MD -[facility] Start: 06-06-2024 End: 06-06-2024 Patient encounter procedure Kacie GARLAND -[facility] Work Phone: Start: 06-06-2024 End: 06-06-2024 ambulatory Butros Latouf Facility:[facility] Start: 05-21-2024 End: 05-22-2024 ambulatory Victor M DAVID Facility:[facility] Start: 05-08-2024 End: 05-08-2024 ambulatory Butros Latouf Facility:[facility] Start: 01-08-2024 End: 01-08-[address] KENNY CHUA MD Facility:[facility] Start: 04-13-2023 Emergency department patient visit VALENTIN [facility] Start: 03-27-2023 Telephone encounter Urology (History ) Urology Start: 02-08-2023 End: 02-08-[address] Dexter Reyes Work Phone: [facility] Work Phone: Start: 02-08-2023 End: 02-08-[address] Dexter Reyes Work Phone: [facility] Work Phone: Start: 01-30-2023 End: 01-30-[address] Dexter Reyes Work Phone: [facility] Work Phone: Start: 01-30-2023 End: 01-30-[address] Dexter Reyes Work Phone: [facility]-Radiology, [facility] Work Phone: Start: 01-11-2023 End: 01-11-[address] Dexter Reyes Work Phone: [facility] Work Phone: Start: 12-17-2022 Non-patient / Non-visit Dr. Robel Reyes Work Phone: [facility] Work Phone: Start: 12-16-2022 Non-patient / Non-visit Dr. Robel Reyes Work Phone: [facility] Start: 12-16-2022 Non-patient / Non-visit Dr. Robel Reyes Work Phone: [facility] Work Phone: Start: 12-15-2022 Non-patient / Non-visit Dr. Robel Reyes Work Phone: [facility] Start: 12-15-2022 Non-patient / Non-visit Dr. Robel Reyes Work Phone: [facility] Start: 12-15-2022 Non-patient / Non-visit Dr. Robel Reyes Work Phone: [facility] Work Phone: Start: 12-14-2022 End: 12-17-2022 Evaluation and management of inpatient Dr. Dexter Reyes [facility] Work Phone: Start: 12-14-2022 End: 01-08-2024 Pre-admission assessment DR KENNY CHUA MD [facility] Start: 12-14-2022 Non-patient / Non-visit Dr. 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; Vitamin D deficiency Start: 01-17-2022 End: 01-17-2022 Patient encounter procedure HUNTER FALCON APRN-RETAIL LOAN OFFICER [facility] Start: 12-30-2021 End: 01-13-2022 Evaluation and management of inpatient DR KARL BARRERA MD [facility] Start: 11-23-2021 End: 11-23-2021 Subsequent hospital visit by physician Fer Weinstein MD Work Phone: [facility] Comment on above: CHRONIC HEADACHES Start: 02-09-2021 End: 02-09-2021 Subsequent hospital visit by physician Ammy Vicente MD Work Phone: [facility] General Surgery Comment on above: Arrived Start: 11-13-2020 ambulatory [facility] Facility:[facility] Start: 09-09-2020 ambulatory [facility] Facility:[facility] Procedures Date Procedure Procedure Detail Performing [...] on above: Performed By: #### MAG #### [place] [id number] Start: 06-19-[address] KARL BARRERA MD [...] DTaP,Tdap,Td Vaccine (2 - Td or Tdap) [facility] Start: 02-17-2025 Influenza vaccination [facility] Start: 01-14-2025 End: 01-14-2025 Patient encounter procedure 01/14/2025 9:15 AM EDT Office Visit Urology [address] [place] [address] Gayla Cline MD [address] [place] [address] WILL BE ON COT, referral for cysto Urology Comment on above: WILL BE ON COT, referral for c ysto Start: 11-08-2024 End: 11-08-2024 Patient encounter procedure 11/08/2024 8:15 AM EDT Office Visit Urology [address] [place], [place] [id number] Gayla Cline MD [address] [place], [place] [address] referral for cysto Urology Comment on above: referral for cysto Start: 10-15-2024 End: 10-15-2024 [facility] Start: 07-02-2024 Cystourethroscopy CYSTO.PANENDO Procedures Routine Gross hematuria Expected: 07/02/2024 (Approximate) [facility] Comment on above: Expected: 07/02/2024 (Approximate) Start: 06-28-2024 End: 06-28-2024 Patient encounter procedure 06/28/2024 1:20 PM EST Appointment Cat Scan [address] [place] [address] Gross hematuria [R31.0] Cat Scan Comment on above: Gross hematuria [R31.0] Start: 06-25-2024 End: 09-24-2024 CREATININE BLD CREATININE BLD Lab Routine Screening for genitourinary condition Gross hematuria Expected: 06/25/2024 (Approximate), Expires: 09/24/2024 [facility] Comment on above: Expected: 06/25/2024 (Approximate), Expi res: 09/24/2024 Start: 06-25-2024 End: 07-19-2025 CT Kidney WO and W contrast IV CT UROGRAM WO/W IVCON Radiology Routine Gross hematuria Expected: 06/25/2024, Expires: 07/19/2025 [facility] Comment on above: Expected: 06/25/2024, Expires: Start: 06-19-2024 Advance Directive Discussion Advance Directive Discussion [facility] Start: 06-19-2024 Medicare Advantage Annual Wellness Visit Medicare Advantage Annual Wellness Visit [facility] Start: 02-18-2024 Covid-19 Vaccine ( season) Covid-19 Vaccine ( season) [facility] Start: 02-18-2024 Influenza vaccination Influenza Vaccine (#1) [facility] Start: 09-02-2023 Glaucoma screening Dilated Retinal Exam [facility] Start: 09-02-2023 Hepatitis C antibody, confirmatory test DILATED RETINAL EXAM [facility] Start: 08-13-2023 Hemoglobin A1c measurement HbA1C [facility] Start: 08-13-2023 Hemoglobin A1c/Hemoglobin.total in Blood HbA1C [facility] Start: 06-19-2023 Advance Directive Discussion Advance Directive Discussion [facility] Start: 02-17-2023 Influenza vaccination Influenza Vaccine (#1) [facility] Start: 02-15-2023 Hepatitis B screening URINE ALBUMIN:CREATININE RATIO [facility] Start: 12-17-2022 Patient discharge [facility] Start: 12-16-2022 Dietary regime [facility] Start: 12-16-[address] [facility] Start: 12-16-2022 Vital signs measurements [facility] Start: 12-15-2022 [facility] Start: 12-15-2022 Consultation [facility] Start: 12-14-2022 Admission procedure [facility] Start: 12-14-2022 Wound care [facility] Start: 12-14-2022 Consultation for treatment [facility] Start: 12-14-[address] [facility] Start: 12-14-2022 Following clinical pathway protocol [facility] Start: 12-14-2022 Admission procedure [facility] Start: 12-14-2022 Assessment of risk of venous thromboembolism [facility] Start: 12-14-[address] [facility] Start: 12-14-2022 Insertion of catheter into peripheral vein [facility] Start: 12-14-2022 Providing care according to standard [facility] Start: 12-14-2022 Provision of activity privileges [facility] Start: 12-14-2022 Fall prevention [facility] Start: 12-14-2022 Introduction of urinary catheter [facility] Start: 12-14-2022 Oxygen therapy [facility] Start: 12-14-2022 Referral to occupational therapist [facility] Start: 12-14-2022 Referral to service [facility] Start: 12-14-2022 Measuring intake and output [facility] Start: 12-14-2022 Referral to gastroenterology service [facility] Start: 12-14-2022 Referral to general surgeon [facility] Start: 12-14-2022 Inhalation therapy procedure [facility] Start: 12-14-2022 Patient referral to dietitian [facility] Start: 12-14-2022 End: 12-14-2022 [facility] Start: 10-11-2022 Hemoglobin A1c/Hemoglobin.total in Blood HBA1C [facility] Start: 08-07-2022 Covid-19 Vaccine (6 - Moderna series) Covid-19 Vaccine (6 - Moderna series) [facility] Start: 06-19-2022 ADVANCE DIRECTIVE DISCUSSION ADVANCE DIRECTIVE DISCUSSION [facility] Start: 06-19-2022 DEPRESSION ASSESSMENT DEPRESSION ASSESSMENT [facility] Start: 02-17-2022 Influenza vaccination INFLUENZA (Season Ended) [facility] Start: 06-19-2021 ADVANCE DIRECTIVE DISCUSSION ADVANCE DIRECTIVE DISCUSSION [facility] Start: 03-17-2021 End: 03-17-2021 Patient encounter procedure 03/17/2021 Office Visit Ophthalmology Ammy Vicente MD [address] [place] [address] [place] [facility] Start: 02-17-2021 Influenza vaccination Flu vaccine (#1) [facility] Work Phone: Start: 02-17-2021 End: 02-17-2021 Patient encounter procedure 02/17/2021 Office Visit Ophthalmology Ammy Vicente MD [address] [place], [place] [id number] [facility] Start: 02-10-2021 End: 02-10-2021 Patient encounter procedure 02/10/2021 Office Visit Ophthalmology Ammy Vicente MD [address] [place], [place] [id number] [facility] Start: 08-15-2020 Hemoglobin A1c/Hemoglobin.total in Blood HBA1C [facility] Start: 2016 RSV Vaccine (1 - 1-dose 75+ series) RSV Vaccine (1 - 1-dose 75+ series) [facility] Start: 2006 Pneumococcal 65+ years Vaccine (1 of 1 - PPSV23) Pneumococcal 65+ years Vaccine (1 of 1 - PPSV23) [facility] Work Phone: Start: 2001 Hepatitis B Vaccine (1 of 3 - Risk 3-dose series) Hepatitis B Vaccine (1 of 3 - Risk 3-dose series) [facility] Start: 1991 Shingles Vaccine (1 of 2) Shingles Vaccine (1 of 2) [facility] Work Phone: Start: 1991 SHINGRIX VACCINE (1 of 2) SHINGRIX VACCINE (1 of 2) [facility] Start: 1960 DTaP/Tdap/Td vaccine (1 - Tdap) DTaP/Tdap/Td vaccine (1 - Tdap) [facility] Work Phone: Start: 1960 Pneumococcal Vaccine: 50+ (1 of 2 - PCV) Pneumococcal Vaccine: 50+ (1 of 2 - PCV) [facility] Start: 1960 Urine microalbumin profile [facility] tony Start: 1959 ANNUAL PCP TEAM CHRONIC DISEASE VISIT ANNUAL PCP TEAM CHRONIC DISEASE VISIT [facility] Start: 1959 Anxiety Screening Anxiety Screening [facility] Start: 1959 BP CONTROLLED (<130/80) BP CONTROLLED (<130/80) [facility] Start: 1959 Depression Screening Depression Screening [facility] Start: 1959 Hepatitis B surface antibody level LDL CHOLESTEROL [facility] Start: 1953 Adult depression screening assessment DEPRESSION SCREENING [facility] Start: 1953 COVID-19 Vaccine (1) COVID-19 Vaccine (1) [facility] Work Phone: Start: 1951 3 comp foot exam completed DIABETIC FOOT EXAM [facility] tony Start: 1951 Diabetic foot examination Diabetic Foot Exam [facility] ic Start: 1951 Hepatitis B screening URINE ALBUMIN:CREATININE RATIO [facility] Start: 1951 Hepatitis C antibody, confirmatory test DILATED RETINAL EXAM [facility] Start: 1951 Lipid panel Lipid screen [facility] Work Phone: Start: 1947 Pneumococcal Vaccine: 65+ (1 - PCV) Pneumococcal Vaccine: 65+ (1 - PCV) [facility] Start: 1947 PNEUMOCOCCAL: 65+ (1 - PCV) PNEUMOCOCCAL: 65+ (1 - PCV) [facility] Start: 1946 COVID-19 VACCINE (#1) COVID-19 VACCINE (#1) [facility] Start: 1941 Creatinine measurement Creatinine monitoring [facility] Work Phone: Start: 1941 Hepatitis C screening Hepatitis C screen [facility] Work Phone: Start: 1941 Potassium monitoring Potassium monitoring [facility] Work Phone: Start: 1941 Thyroid stimulating hormone measurement TSH testing [facility] Work Phone: Bacteria identified in Urine by Culture [facility] Comment on above: Ordered: 06/18/2024 Bacteria identified in Urine by Culture BACTERIAL CULTURE, URINE Microbiology Routine Gross hematuria 10/01/2024 3:36 PM EDT [facility] Blood glucose - POCT [facility] Work Phone: Comment on above: As Needed until discontinued starting End: 02-09-2021 Creatinine [Mass/volume] in Serum or Plasma Creatinine, serum Lab STAT One Time for 1 Occurrences starting 02/09/2021 until 02/09/2021 [facility] Work Phone: Comment on above: One Time for 1 Occurrences starting 01/18 until 02/09/2021 CT Kidney WO and W contrast IV CT UROGRAM WO/W IVCON Radiology Routine Gross hematuria 06/28/2024 2:26 PM EST [facility] Work Phone: End: 11-03-2025 CT Kidney WO and W contrast IV CT UROGRAM WO/W IVCON Radiology Routine Gross hematuria 1 Occurrences starting 10/04/2024 until 11/03/2025 [facility] Work Phone: Comment on above: 1 Occurrences starting 10/04/2024 until 11/03/2025 Cystourethroscopy CYSTO.PANENDO Procedures Routine Gross hematuria Ordered: 10/01/2024 [facility] Comment on above: Ordered: 10/01/2024 CYTOLOGY NON-BIOPSYCHOLOGIST [place] Jamar cruz Comment on above: Ordered: 06/18/2024 [...] As Needed until discontinued starting Oxygen therapy [[facility] Data Set] [facility] Work Phone: Comment on above: Daily until discontinued starting 2020 As Needed until disc ontinued starting 02/09/2021 Patient Education ED Eye Contusi on ED Head Injury (Adult) ED Skin Tear (Skin Avulsion) [facility] Work Phone: Patient referral [facility] Work Phone: POST VOID RESIDUAL POST VOID RES IDUAL Procedures Routine Gross hematuria Screening for genitourinary condition Ordered: 10/01/2024 [facility] Work Phone: Comment on above: Ordered: 10/01/2024 End: 02-09-2021 Potassium w/ Reflex to Magnesium Potassium w/ Reflex to Magnesium Lab Routine One Time for 1 Occurrences starting 02/09/2021 until 02/09/2021 [facility] Work Phone: Comment on above: One Time for 1 Occurrences starting 01/18 until 02/09/2021 End: 02-09-2021 , urine POCT , urine POCT Point of Care Testing Routine One Time for 1 Occurrences starting 02/09/2021 until 02/09/2021 [facility] Work Phone: Comment on above: One Time for 1 Occurrences starting 01/18 until 02/09/2021 End: 02-09-2021 Protime-INR Protime-INR Lab STAT One Time for 1 Occurrences starting 02/09/2021 until 02/09/2021 [facility] Work Phone: Comment on above: One Time for 1 Occurrences starting 01/18 until 02/09/2021 Spirometry panel Incentive arthur [facility] Routine Q1H PRN until discontinued starting 02/09/2021 [facility] Work Phone: Comment on above: Q1H PRN until discontinued starting 01/18 UA DIP, URINE (POC) UA DIP, URIN E (POC) Lab Routine Screening for genitourinary condition Ordered: 06/18/2024 [facility] Work Phone: Comment on above: Ordered: 06/18/2024 Immunizations Immunization Date Immunization Notes Care Provider [facility] 10-15-2024 tetanus toxoid, reduced diphtheria toxoid, and acellular pertussis vaccine, adsorbed Dr. Diana Salmeron MD Work Phone: [facility] 03-19-2022 influenza virus vaccine, unspecified formulation Urology (History) [facility] 10-25-2021 Covid (Pfizer) Dr. Dexter Reyes Work Phone: [facility] 05-21-2021 influenza virus vaccine, unspecified formulation DR KARL BARRERA MD [facility] 05-21-2021 SARS-CoV-2 (COVID-19 ) mRNA-[address] KARL BARRERA MD [facility] 03-10-2021 influenza virus vaccine, unspecified formulation DR KARL BARRERA MD [facility] 10-13-2020 SARS-CoV-2 (COVID-19 ) mRNA-[address] KARL BARRERA MD [facility] Comment on above: Result Comment: 2021: TPV3 09-15-2020 SARS-CoV-2 (COVID-19 ) mRNA-[address] KARL BARRERA MD [facility] Comment on above: Result Comment: 2021: TPV3 03-22-2020 influenza virus vaccine, unspecified formulation DR KARL BARRERA MD [facility] 02-18-2020 influenza virus vaccine, unspecified formulation DR KARL BARRERA MD [facility] 03-18-2019 influenza, injectabl e, quadrivalent, preservative free Dr. Diana Salmeron MD Work Phone: [facility] 03-18-2019 influenza, seasonal, injectable Dr. Dexter Reyes Work Phone: [facility] 03-04-2019 influenza virus vaccine, unspecified formulation DR KARL BARRERA MD [facility] 02-22-2017 influenza virus vaccine, unspecified formulation DR KARL BARRERA MD [facility] Payers Date Payer Category Payer Medicare (Managed Care) [facility] MEDIC[facility] .[id number] 2024 Self-pay [id number] 2020 Medicare [id number] 2019 Private Health Insurance [id number]. [id number] 2019 Medicaid [id number]. 1.13.159.2. [id number] 2019 Medicaid [id number] 2015 Medicare [facility] MEDICARE [id number] 2006 Medicare [id number] [id number]. [id number] 2006 Medicare [id number] 1941 Unknown [id number] 2.840.1.903670.3.579.2. 594 1941 Unknown [id number] .840.1.982446.3.579.2. 594 1941 Unknown [id number] .840.1.465526.3.579.2. 594 1941 Unknown [id number] 2.840.1.857021.3.579.2. 627 1941 Unknown [id number] .16840.1.105725.3.579.2. 651 Medicare [id number] Unknown [id number] 2.16.840.1.156080.3.579.2. 462 Unknown [id number] 2.16.840.1.103607.3.579.2. 462 Unknown [id number] 2.16840.1.471205.3.579.2. 462 Unknown [id number] 2.840.1.204925.3.579.2. 462 Unknown [id number] .840.1.699647.3.579.2. 462 Unknown [id number] 2.840.1.408659.3.579.2. 462 Unknown [id number] 2.840.1.876861.3.579.2. 462 Unknown [id number] .840.1.898293.3.579.2. 462 Unknown [id number] .840.1.807772.3.579.2. 462 Unknown [id number] .840.1.817313.3.579.2. 462 Unknown [id number] .840.1.218120.3.579.2. 462 Unknown [id number] .840.1.783518.3.579.2. 462 Unknown [id number] .840.1.711544.3.579.2. 462 Unknown [id number] 840.1.723206.3.579.2. 462 Unknown [id number] .840.1.353723.3.579.2. 462 Unknown [id number] 840.1.808646.3.579.2. 462 Unknown [id number] 840.1.904773.3.579.2. 462 Unknown [id number] 840.1.217711.3.579.2. 462 Unknown [id number] .840.1.215369.3.579.2. 462 Unknown [id number] .840.1.092340.3.579.2. 462 Unknown [id number] .840.1.890080.3.579.2. 462 Unknown [id number] 2.16.840.1.499797.3.579.2. 462 Unknown [id number] 2.16.840.1.106791.3.579.2. 462 Unknown [id number] 2.16.840.1.073308.3.579.2. 462 Unknown [id number] 2.16.840.1.794349.3.579.2. 462 Unknown [id number] 2.16.840.1.540007.3.579.2. 462 Unknown [id number] 2.16.840.1.963603.3.579.2. 462 Unknown [id number] 2.16.840.1.047150.3.579.2. 462 Unknown [id number] 2.16.840.1.098592.3.579.2. 462 Unknown [id number] 2.840.1.589271.3.579.2. 462 Unknown [id number] 2.840.1.129322.3.579.2. 462 Unknown [id number] 2.16.840.1.457392.3.579.2. 462 Unknown [id number] 2.16.840.1.376349.3.579.2. 462 Unknown [id number] 2.16.840.1.222943.3.579.2. 462 Unknown [id number] 2.840.1.301225.3.579.2. 462 Unknown [id number] 2.16.840.1.162138.3.579.2. 462 Unknown [id number] 2.16840.1.640490.3.579.2. 462 Unknown [id number] 2.840.1.729213.3.579.2. 462 Unknown [id number] 2.840.1.997468.3.579.2. 462 Social History Date Type Detail Facility Start: 02-09-2021 End: 10-15-2024 Tobacco smoking status NHIS Former smoker [facility] Start: 02-09-2021 End: 01-14-2025 Alcohol intake Current drinker of alcohol (finding) [facility] Work Phone: Start: 02-02-2021 Alcohol Comment occassional ETOH use, not on a daily basis [facility] Work Phone: Start: 1940 Sex Assigned At Not on file [facility] Work Phone: Exposure to SARS-CoV -2 (event) Not sure [facility] Start: 12-14-2022 Tobacco smoking status [facility] Tobacco smoking consumption unknown [facility] Start: 05-15-2020 History SDOH Alcohol Frequency 2 [facility] Start: 05-15-2020 History SDOH Alcohol Std Drinks 1 [facility] Start: 12-10-2019 History SDOH Financial 4 [facility] Start: 1940 Sex Assigned At Male [facility] Start: 01-08-1960 End: 01-07-1990 History of tobacco use Current smoker [facility] Work Phone: Start: 01-08-1960 End: 01-07-1990 History of tobacco use Cigarette Smoker [facility] Work Phone: Start: 05-15-2020 End: 05-05-2023 Cigarettes smoked current (pack per day) - Reported 1 [facility] Work Phone: Start: 05-15-2020 End: 06-18-2024 Tobacco use and exposure Smokeless tobacco non-user [facility] Work Phone: Start: 09-05-2019 End: 05-05-2023 Tobacco Comment STOPPED 28 YEARS AGO [facility] Start: 09-05-2019 Alcohol Comment OCCASIONAL [facility] Start: 09-12-2019 Heavy [facility] Start: 09-12-2019 None [facility] Start: 11-23-2019 - [facility] Start: 12-18-2019 Non-smoker [facility] Start: 05-15-2020 End: 05-05-2023 Alcohol Use Disorder Identification Test - Consumption [AUDIT-C] [facility] Work Phone: How often to you hav e a drink containing alcohol? Monthly or less [facility] Work Phone: How many standard dr inks containing alcohol do you have on a typical day? 1 or 2 [facility] Work Phone: Frequency of Binge Drinking Not on file [facility] How hard is it for y ou to pay for the very basics like food, housing, medical care, and heating Not very hard [facility] (I/We) worried wheth er (my/our) food would run out before (I/we) got money to buy more. DK or Refused [facility] Start: 09-20-2024 End: 10-16-2024 Sex Male (finding) [facility] Medical Equipment Procedure Code Equipment Code Equipment Origin al Text Equipment Identifier Dates ERCP (endoscopic retrograde cholangiopancreatog lalit) ([id number]) Polymeric biliary stent, non-bioabsorbable [id number] FDA Start: 12-15-2022 Patch Xenosure Bovine Pericardial Tissue 8x.8cm Vascular Sterile - [id number] Start: 09-02-2019 Goals Date Patient Goal Desired Activity /State Functional Status Date Assessment Result Facility 12-17-2022 Functional status Bedrest [facility] Work Phone: 12-16-2022 Functional status Tolerates Activity Fair [facility] Work Phone: 01-13-2022 Functional Status Room check performed [facility] 01-13-2022 [facility] Status [facility] 01-13-2022 Functional Status [facility] 01-13-2022 Functional Status [facility] 01-12-2022 Functional Status [facility] 01-12-2022 Functional Status [facility] 01-12-2022 Functional Status 50 [facility] 01-12-2022 [facility] Functional Status Bed Bath Refused [facility] 01-12-2022 Functional Status bilateral knee high [facility] 01-12-2022 Functional Status padded oxygen tubing [facility] 01-11-2022 Functional Status Linen Change Done [facility] 01-11-2022 [facility] 01-11[facility]20[facility] Functional Status [facility] 01-10-2022 [facility] 01-10-2022 Functional Status Shampoo/Body w abdirashid (no rinse), CHG bath [facility] 01-10-2022 Functional Status [facility] 01-09-2022 [facility] 01-09[facility] 01-08-2022 Functional Status [facility] 01-07-2022 Functional Status Transfer Bed t o/from Chair Total 2 [facility] 01-07-2022 Functional Status Supervised 3 [facility] 01-07-2022 Functional Status Hair Care Maximum paola tance [facility] 01-07-2022 Functional Status Fluid Restriction Maint ained [facility] 01-06-2022 Functional Status [facility] 01-05-2022 Functional Status Special Call D evice Unable to use call device [facility] 01-05-2022 Functional Status [facility] 01-05-2022 Functional Status [facility] 01-05-2022 Functional Status Patient Identi fied Identification band, Verbal [facility] 01-04-2022 Functional Status Skin Care Done [facility] 01-03-2022 Functional Status [facility] 01-01-2022 Functional Status [facility] 12-30-2021 Functional Status Living Situati on Senior Living Unit [facility] 12-30-2021 Functional Status Sensory Defici ts Blind, left eye, Blind, right eye [facility] 12-11-2019 Are you deaf, or do you have serious difficulty hearing No 12/11/2019 4:18 PM Josefa Graves RN No [facility] 12-11-2019 Are you blind, or do you have serious difficulty seeing, even when wearing glasses No 12/11/2019 4:18 PM Josefa Graves RN No [facility] 12-11-2019 Do you have serious difficulty walking or climbing stairs Yes 12/11/2019 4:18 PM EDT Josefa Mason RN Yes [facility] 12-11-2019 Do you have difficul ty dressing or bathing No 12/11/2019 4:18 PM EDT Josefa Mason RN No [facility] 12-11-2019 Because of a physica l, mental, or emotional condition, do you have difficulty doing errands alone such as visiting a physician's office or shopping Yes 12/11/2019 4:18 PM EDT Josefa Mason RN Yes [facility] Mental Status Date Assessment Result Facility 12-17-2022 Cognitive function Voice/Name [facility] Work Phone: 01-13-2022 Mental Status Orientation Oriented x 4 [facility] 01-13-2022 Mental Status [facility] 01-12-2022 Mental Status [facility] 01-12-2022 Mental Status [facility] 01-11-2022 Mental Status [facility] 12-11-2019 Because of a physica l, mental, or emotional condition, do you have serious difficulty concentrating, remembering, or making decisions No 12/11/2019 4:18 PM EDT Josefa Mason RN No [facility] Clinical Notes 02-09-2021 to 01-14-2025 Gayla Cline MD - 01/14/2025 10:45 AM Gayla Banuelos MD - 01/14/2025 10:44 AM Gayla Banuelos MD - 01/14/2025 10:44 AM EDT Note Date & Type Note Facility 01-14-2025 Note HNO ID: [id number] Author: GAYLA CLINE MD Service: ? Author [...] (Patient not taking: Reported on 01/14/2025) vit C,V-Yl-kquby-lutein-zeaxan (PRESERVISION AREDS-2) 250-90-40-1 mg Take 1 Each [...] (Patient n (more content not included)... [facility] 01-14-2025 History of Presen t illness [...] (Patient not taking: Reported on 01/14/2025) vit C,U-Ty-yalts-lutein-zeaxan (PRESERVISION AREDS-2) 250-90-40-1 mg Take 1 Each [...] kidney disease no dialysis. Dr. Montgomery in [place] Congestive heart failure (HCC) Diabetes mellitus (HCC) [...] Gayla Cline MD documented in this encounter [facility] 01-14-2025 Note HNO ID: [id number] Author: GAYLA CLINE MD Service: ? Author Type: Physician Type: Procedures Filed: 01/14/2025 10:48 Note Text: CYSTOSCOPY PROCEDURE NOTE : Elizabeth Modi is a 84 year old male who is here for cystoscopy PRE-OP/PRE-PROCEDURE DIAGNOSIS: h/o gross henaturia POST-OP/POST-PROCEDURE DIAGNOSIS: same SURGERY/PROCEDURE(S): Cystoscopy Pt ID verified with patient: Yes Procedure verified with patient: Yes Procedure confirmed with physician and account support specialist: Yes UNIVERSAL PROTOCOL / SAFETY [...] may be extrapolated by contextual derivation. [facility] 01-14-2025 Procedure note CYSTOSCOPY PROCEDURE NOTE : Elizabeth Modi is a 84 year old male who is here for cystoscopy PRE-OP/PRE-PROCEDURE DIAGNOSIS: h/o gross henaturia POST-OP/POST-PROCEDURE DIAGNOSIS: same SURGERY/PROCEDURE(S): Cystoscopy Pt ID verified with patient: Yes Procedure verified with patient: Yes Procedure confirmed with physician and account support specialist: Yes UNIVERSAL PROTOCOL / SAFETY [...] meaning may be extrapolated by contextual derivation. [facility] 01-14-2025 Procedure note CYSTOSCOPY PROCEDURE NOTE : Elizabeth Modi is a 84 year old male who is here for cystoscopy PRE-OP/PRE-PROCEDURE DIAGNOSIS: h/o gross henaturia POST-OP/POST-PROCEDURE DIAGNOSIS: same SURGERY/PROCEDURE(S): Cystoscopy Pt ID verified with patient: Yes Procedure verified with patient: Yes Procedure confirmed with physician and account support specialist: Yes UNIVERSAL PROTOCOL / SAFETY [...] by contextual derivation. 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 Call [facility] ([phone]) or report tothe closest Emergency Room. Call 911 if necessary. 10/15/24 1839 Cosigner Signature (if applicable): CC: Dr. Diana Salmeron MD ~ Signed [facility]04-29-2025 Radiology Diagnostic study note [facility] Imaging Services [address] [place] [address] Elbow min 3 Views MR#: [id number] Acct: [id number] Name: ELIZABETH MODI Rep #: [id number] : 1940 M 84 From: Franko Kapadia MD PCP: Dr. Diana Salmeron MD Status: REG ER Study:Elbow min 3 Views Date of Exam: Exam# [id number] Ordering Dr: Jesse Angel DO EXAM: Left elbow CLINICAL HISTORY: Injury, pain COMPARISON: None TECHNIQUE: Three views FINDINGS: No acute fracture or dislocation. Moderate joint space narrowing and osteophyte formation consistent with moderatearthrosis. Normal soft tissues. RAD/Elbow min 3 Views IMPRESSION: No acute fracture or dislocation. Moderate arthrosis. Reading Location: [id number] CC: Dr. Diana Salmeron MD; Dr. Jesse Angel DO ~ Cigarette Carton Sealer: Signed [facility]04-29-2025 Radiology Diagnostic study note [facility] Imaging Services [address] [place] [address] Orb Sella Post Fossa Ear w/o MR#: [id number] Acct: [id number] Name: ELIZABETH MODI Rep #: [id number] : 1940 M 84 From: Franko Kapadia MD PCP: Dr. Diana Salmeron MD Status: REG ER Study:Orb Sella Post Fossa Ear w/o Date of Ex am: 10/15/24 Exam# [id number] Ordering Dr: Jesse Angel DO PROCEDURE: ORB [...] ORBITAL FRACTURE OR RETROBULBAR HEMATOMA. Reading Location: [id number] CC: Dr. Diana Salmeron MD; Dr. Jesse Angel DO ~ Cigarette Carton Sealer: Signed [facility]04-29-2025 Discharge summary Author Jesse Angel [facility] Note Date/Time October 15, 2024 11: 45pm [facility] Medical Records Department [address] [place] [address] Emergency Department Summary 10/15/24 MR#: [id number] Acct: [id number] Name: ELIZABETH MODI Rep #:[id number] : 1940 84 From: Jesse Griffith PCP: [...] of his last tetanus. Tetanus Immunization: Unknown [facility] Medical History History of echocardiogram History [...] pulmonary disease) Obesity Atherosclerotic heart disease of [place] coronary artery without angina pectoris Paroxysmal atrial [...] Care Provider] - 5-7 Days Print Language: Sudanese Disposition Disposition: Home, Self Care What to do if you have Problems For any increased pain, shortness of breath, bleeding, nausea or vomiting, chestpain, or any unexpected problems, contact your Primary Care Provider. Call [facility] ([phone]) or report to the closest Emergency Room. Call 911 if necessary. 10/15/242344 <Electronically signed by Jesse Angel DO> Cosigner Signature (if applicable): CC: Dr. Diana Salmeron MD ~ Signed [facility] Work Phone: 1(305) 474-488804-15-2025 Telephone encounter Note* Telephone Encounter - Yue Huffman - 10/01/2024 2:11 PM EDT May you please submit another order for for Urogram CT. When last appt was canceled the order was not removed from the appt. Sorry for the inconvenience. Marivel PSS [facility]04-15-2025 Miscellaneous Notes* Telephone Encounter - Yue Su - 10/01/2024 2:11 PM EDT May you please submit another order for for Urogram CT. When last appt was canceled the order was not removed from the appt. Sorry for the inconvenience. Mraivel PSS documented in this encounterFairfield Medical Center04-15-2025 Instructions* Patient Instructions* Nikolai Connor PA-C - 10/01/2024 1:46 PM EDT documented in this encounterFairfield Medical Center04-15-2025 NoteHNO ID: [id number] Author: NIKOLAI CONNOR PA-C Service: ? Author Type: Physician Fagot Heater Helper Type: Progress Notes Filed: 10/01/2024 14:58 Note Text: COUNT INCLUDES THE [facility] PATIENT CLINIC NOTE (M) Some elements [...] (ADULTS MULTIVITAMIN ORAL) Take by mouth. vit C,Y-Ho-yejrd-lutein-zeaxan (PRESERVISION AREDS-2) 250-90-40-1 mg Take 1 Each [...] kidney disease no dialysis. Dr. Montgomery in [place] Congestive (more content not included)...[facility]04-15-2025 History of Present illness Narrative* Nikolai Connor PA-C - 10/01/2024 1:42 PM EDT Images from the original note were not included. COUNT INCLUDES THE [facility] EST PATIENT CLINIC NOTE (M) Some elements [...] (ADULTS MULTIVITAMIN ORAL) Take by mouth. vit C,D-Je-pqdxz-lutein-zeaxan (PRESERVISION AREDS-2) 250-90-40-1 mg Take 1 Each [...] kidney disease no dialysis. Dr. 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 Hawk at [facility] has been placed; please turn in the [...] Plan: Appointment with Nikolai. documented in this encounterFairfield Medical Center04-15-2025 NoteHNO ID: [id number] Author: LUKE TAYLOR LPN Service: ? Author [...] tolerated the procedure well. Plan: Appointment with Nikolai.[facility]03-21-2025 Evaluation note* Diagnosis Onset Date Resolution Status Admit Date Fecal incontinence acute September 06, 2024 1:38pm S/P ERCP chronic September 06 1:38pm [facility] Work Phone: 1(844) 266-814003-21-2025 Evaluation note* Diagnosis Onset Date Resolution Status Admit Date Fecal incontinence acute September 06, 2024 1:38pm S/P ERCP chronic September 06 1:38pm Atherosclerotic heart diseas e of [place] coronary artery without angina pectoris chronic October 16, 2024 7:59am Essential hypertension chronic Ap 2024 7:59am Hyperlipidemia chronic September 7:59am Paroxysmal atrial fibrillation chron ic October 16, 2024 7:59am [facility] Work Phone: 1(368) 463-923901-21-2025 Telephone encounter Note* Telephone Encounter - Luke Taylor LPN - 07/09/2024 3:50 PM EST Letter sent to patient that we have not been able to contact Angel[facility]. Luke Taylor LPN [facility]01-21-2025 Miscellaneous Notes* Telephone Encounter - [...] the rest of the testing JAJA Stewart, MSTU documented in this encounterFairfield Medical Center01-21-2025 Telephone encounter Note * Telephone Encounter - Luke Taylor LPN - 07/09/2024 3:47 PM EST Called [facility]. No answer- left message to call clinic. Luke Taylor LPN [facility]01-17-2025 Telephone encounter Note* Telephone Encounter - Luke Taylor LPN - 07/05/2024 4:27 PM EST Called [facility]. No answer- left message to call clinic. Luke Taylor LPN [facility]01-14-2025 Telephone encounter Note* Telephone Encounter - Nayeli Dominguez - 07/02/2024 2:24 PM EST Left pt's daughter message to call & schedule cysto with Dr. Prakash Connor. Delmi [facility]01-14-2025 Miscellaneous Notes* Telephone Encounter - Nayeli Dominguez - 07/02/2024 2:24 PM EST Left pt's daughter message to call & schedule cysto with Dr. Prakash Connor. Delmi documented in this encounterFairfield Medical Center01-10-2025 History of Present illness Narrative* Luke Whitmore, [...] PATIENT PRESENTS WITH AN IMPLANTABLE OR ATTACHED MAIL SUPERINTENDENT: No ALLERGIES: Reviewed and unchanged CONTRAST ALLERGY: [...] 2024 TIME: 1:57 PM documented in this encounterFairfield Medical Center01-10-2025 NoteHNO ID: [id number] Author: LUKE WHITMORE RT (R) Service: ? Author Type: Boiler Erector Type: Progress Notes Filed: 06/28/2024 13:57 Note [...] PATIENT PRESENTS WITH AN IMPLANTABLE OR ATTACHED MAIL SUPERINTENDENT: No ALLERGIES: Reviewed and unchanged CONTRAST ALLERGY: [...] DATE: June 28, 2024 TIME: 1:57 [facility]01-07-2025 Telephone encounter Note* Telephone Encounter - Susan Joy MA - 06/25/2024 8:46 AM EST LM for Angelic to contact office to inform. Susan Joy MA [facility]01-03-2025 Telephone encounter Note* Telephone Encounter - Anaid Payne MA - 06/21/2024 4:28 PM EST ----- Message from Nikolai Connor PA-C sent at 06/21/2024 3:54 PM EST ----- No infection in the urine No cancer cells in urine, please continue the rest of the testing JAJA Stewart, TU DIAZ [facility]12-31-2024 NoteHNO ID: [id number] Author: NIKOLAI CONNOR PA-C Service: ? Author Type: Physician Fagot Heater Helper Type: Progress Notes Filed: 06/18/2024 16:05 Note Text: COUNT INCLUDES THE [facility] NEW PATIENT CLINIC NOTE SERVICE DATE: June 18, 2024 NAME: Elizabeth Modi CHIEF COMPLAINT: Hematuria HISTORY OF PRESENT ILLNESS: Elizabeth Modi is a 83 year old male an new patient here for The patient reports Hematuria with a few episodes of hematuria Will get Urine sample today for culture and cytology Schedule Cystoscopy at [place] And CT Urogram at [place] We discussed the need for full hematuria [...] (ADULTS MULTIVITAMIN ORAL) Take by mouth. vit C,X-Kg-tbqmm-lutein-zeaxan (PRESERVISION AREDS-2) 250-90-40-1 mg Take 1 Each [...] kidney disease no dialysis. Dr. Montgomery in [place] Congestive heart failure (HCC) DM (diabetes mellitus) (HCC) PCP follows Dyslipidemia Heart attack (HCC) HTN (hypertension) Hypercholesterolemia Hypothyroidism PVD (peripheral vascular disease) (HCC) Renal mass (more content not included)...[facility]12-31-2024 History of Present illness Narrative* Nikolai Connor PA-C - 06/18/2024 1:26 PM EST Images from the original note were not included. COUNT INCLUDES THE [facility] NEW PATIENT CLINIC NOTE SERVICE DATE: June 18, 2024 NAME: Elizabeth Modi CHIEF COMPLAINT: Hematuria HISTORY OF PRESENT ILLNESS: Elizabeth Modi is a 83 year old male an new patient here for The patient reports Hematuria with a few episodes of hematuria Will get Urine sample today for culture and cytology Schedule Cystoscopy at [place] And CT Urogram at [place] We discussed the need for full hematuria [...] (ADULTS MULTIVITAMIN ORAL) Take by mouth. vit C,S-Om-ipehs-lutein-zeaxan (PRESERVISION AREDS-2) 250-90-40-1 mg Take 1 Each [...] kidney disease no dialysis. Dr. Montgomery in [place] Congestive heart failure (HCC) DM (diabetes mellitus) ([facility]) PCP follows Dyslipidemia Heart attack (HCC) [...] JAJA Stewart MT, PA-C documented in this encounterFairfield Medical Center12-19-2024 Evaluation note* Diagnosis Onset Date Resolution Status Admit Date Fecal incontinence acute Decemb er 2023 3:30pm S/P ERCP chronic June 06, 2024 3:30pm Fecal incontinence acute September 06, 2024 1:38pm S/P ERCP chronic September 06 1:38pm [facility] Work Phone: 1(482) 847-901202-18-2024 Note. MICRO - Microbiology PROCEDURE: Blood Culture [...] Locations *1: This test was performed at: [facility], [address] [place] [address], [id number]- , [facility] ([place])08-04-2023 Note. MICRO - Microbiology PROCEDURE: Blood Culture [...] Locations *1: This test was performed at: [facility], [address] [place] [address], [id number]- , [facility] ([place])04-16-2023 Note. MICRO - Microbiology PROCEDURE: Culture Wound [...] Locations *1: This test was performed at: [facility], [address] [place] [address], [address]- , [facility] ([place])03-27-2023 Miscellaneous Notes* Telephone Encounter - Ammy Bradshaw - 03/27/2023 1:44 PM EDT Referral received [facility] for [place] to call and schedule appt. Ammy Bradshaw documented in this encounterFairfield Medical Center03-21-2023 Miscellaneous Notes* Telephone Encounter - Quan Iraheta DO - 09/06/2022 5:03 PM EDT Spoke with patient's nurse at [facility]. Counseled to taper prednisone by 2.5mg weekly [...] agreement with the plan. documented in this encounterFairfield Medical Center03-21-2023 Miscellaneous Notes* Telephone Encounter - Quan Iraheta DO - 09/06/2022 12:47 PM EDT Attempted to speak with a provider for Mr. Modi at [facility] to marriage and family counselor prednisone taper of 2.5mg q week based upon rheumatology and ophthalmology evaluation not c/w GCA. Phone rang without answer x 2. Will attempt to call again this afternoon. 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 Eating Habits- No raw meat, not vegan [...] - Being assessed for cataract surgery at [facility] Age related macular degeneration - Smoking [...] 01, 2022 3:05 PM documented in this encounterFairfield Medical Center03-16-2023 Instructions* Patient Instructions* Shana Delgado MD - 09/01/2022 10:54 AM EDT Labs on the first floor today Eye exam today in [facility] Continue prednisone dose as is pending labs and eye evaluation documented in this encounterFairfield Medical Center03-16-2023 History of Present illness Narrative* [...] vascular disease s/p bilateral BKA, CKD, and WA s/p CABG who presents for evaluation of [...] muscle aches or pains Vascular surgery at [facility]: Left temporal artery biopsy 12/24/2021 [...] many vessels Eye doctor Dr. Lucas at [facility] sent him to [facility] for GCA evaluation [phone], Currently on prednisone 10mg daily since 02/28/2022 [...] kidney disease no dialysis. Dr. Montgomery in [place] Congestive heart failure (HCC) DM (diabetes mellitus) ([facility]) PCP follows Dyslipidemia Heart attack (HCC) HTN (hypertension) Hypercholesterolemia Hypothyroidism PVD (peripheral vascular disease) ([facility]) Renal mass PAST SURGICAL HISTORY: PAST [...] (L56.8) Photosensitivity (I73.9) PVD (peripheral vascular disease) ([facility]) (E11.69) Type 2 diabetes mellitus with other specified complication, without long-term current use of (Z79.52) senior living current use of systemic steroids (E55.9) Vitamin D deficiency Elizabeth Modi is a very pleasant 82 yo male with a past medical history notable for bilateral cataracts, long-standing type 2 diabetes, tobacco use disorder (quit ), peripheral vascular disease s/p bilateral BKA, CKD, hearing loss, and WA s/p CABG who presents for evaluation of [...] Zack Iraheta DO PGY5 Rheumatology Fellow Pager [phone] The above patient was seen and examined [...] arteritis Shana Burton MD documented in this encounterFairfield Medical Center08-01-2022 Note ORIGINAL EXAMINATION: TWO XRAY [...] Sign Date: 01/17/2022 11:59:11 PM Ordering Provider: [facility]08-01-2022 Note ORIGINAL EXAMINATION: TWO XRAY VIEWS [...] Date: 01/17/2022 11:59:11 PM Ordering Provider: [facility] [id number] Note Discharge Instructions Thank you for allowing [...] 01/17/2022 01:00 PM EDT HUNTER FALCON APRN-GURWINDER [facility] Follow Up 02/15/2022 10:00 AM EDT [facility] Follow Up Appointments Follow Up with KARL HIDALGO MD When 02/15/2022 10:00 AM EDT Where: [address] [place] [address] [place] [address]- Follow Up with HUNTER FALCON APRN-GURWINDER When 01/17/2022 01:30 PM EDT Why: please obtain a CXR 1 hour prior to your appt. Where: [address] [facility] [place] [address]- Follow Up with Discharge to [facility] LOC [phone] When Within 1-2 days Follow Up with Cardiac Rehab- [facility] When Why: The Cardiac Rehab department will call you to schedule you for phase 2. We left you a brochurewith information about cardiac rehab. If you have any questions please call [phone]. Where: Jose [facility] [address] [place] [address]- The Following Activity and Diet Have Been [...] surgeon and have chest x-ray done at [place] outpatient [facility]., 01/13/22 10:45:00 EDT Other Therapies [...] to receive it can visit one of [facility] vaccine clinics. There are many vaccine clinic locations within the [facility]. For locations and available times, please visit [email or web address] It is important to note that some COVID mobile vaccine clinics are held outdoors and may be canceled in rainy or stormy conditions. To learn more about pediatric vaccinations (ages 5-11), we invite you to visit the [facility] webpage. [email or web address]/pages/[email or web address]-Cjydipurlot-Kiwzbpwyhe-Wdxoo-Htj stions.htmlTo learn more about the COVID-19 vaccine, we invite you to visit the [facility] website for a list of frequently asked questions. [email or web address]-[email or web address]/ywiwx-Mjunaxj-Lotfjpoqip _[email or web address]-Questions.pdf [facility] Patient Portal Access Instructions: Stay connected with your healthcare team and access your personal medical information anytime with the [facility] [place] Patient [facility].If you would like a full copy of your medical records, please contact the [facility] Medical Records Department, Monday through Monday between 8a.m. and 4:30p.m. Please follow the directions below to access the portal: 1.Access the email account you provided upon registration to the [facility].2.Look for an invitation email from [facility].3.Open the email and access the invitation link: Accept Invitation to [facility]4.Fill in the required rios to create your account. Sign into [email or web address] with your username and password that you [...] you will allow to register on the [facility] [place] [employer] Patient Portal for access to your information. You can also access the [facility] Patient Portal on the [employer] femi. Simply click on "Health Records" under [...] Call your local pharmacy or go to http://bit.ly/6S6Xf7q to find one close to you.3.Make use of household items: Use cat litter or old coffee grounds to dispose medications if other options arenot available. Mix your drugs with these household products, seal them in an airtight container andthrow it into the garbage. Call [facility]: [phone] to be sure your drugs can be [...] that I should contact my do ctor. Patient/Calibration Specialist Signature: Date/Time: Relationship to Patient: Witness Name/Signature: Date/Time: [facility] Note ORIGINAL EXAMINATION: ONE XRAY VIEW OF [...] Date: 01/13/2022 6:27:59 AM [facility] Note ORIGINAL EXAMINATION: ONE XRAY VIEW OF [...] Date: 01/13/2022 6:27:59 AM Ordering Provider: YIMI [address]27-2022 Note ORIGINAL EXAMINATION: ONE XRAY VIEW [...] Date: 01/12/2022 7:32:39 PM Ordering Provider: YIMI [facility]07-27-2022 Note ORIGINAL EXAMINATION: ONE XRAY VIEW OF [...] Date: 01/12/2022 7:32:39 PM Ordering Provider: YIMI [facility]ORRESVeterans Health [id number] Note Date of Service 01/12/2022 Temporary A and V pacer wires discontinued. Patient tolerated well. Patient instructed to remain bedrest for 1 hour. Digitally Signed by YIMI NEWELL on 01/12/2022 05:06 PM [facility] [id number] Note Date of Service 01/12/2022 Chief Complaint [...] cell arteritis on prednisone. He resides at [facility]. He presented on 12/30/2021 with sudden onset of altered mental status and shortness of breath. Troponin 3577. Creatinine elevated 2.3. He was transferred to [facility] for fur ther evaluation. Echocardiogram completed [...] rhythm in the 60s. Transfer to stepdown. [facility] endocrinology following for blood sugar management. POD [...] Central venous access: Left subclavian triple-lumen Disposition: [place] Weight Current Weight Dosing Weight: 81.5 [...] 7. Diabetes Hgb A1c 8.4% Followed by [place] inpatient endocrinology. Glucoses ranging 69-1 33. On [...] by YIMI NEWELL on 01/12/2022 04:58 PM [facility] [id number] Note Date of Service 07/14/2021 postop day [...] cell arteritis on prednisone. He resides at [facility]. He presented on 12/30/2021 with sudden onset of altered mental status and shortness of breath. Troponin 3577. Creatinine elevated 2.3. He was transferred to [facility] for fur ther evaluation. Echocardiogram completed [...] rhythm in the 60s. Transfer to stepdown. [place] inpatient endocrinology following for blood sugar management. [...] 09:04 EDT Digitally Signed by PALAK NORMAN APRN-DIRECTOR OF PUPIL PERSONNEL PROGRAM on 01/11/2022 11:18 AM [facility] [id number] Endocrinology Progress note Date of Service 01/11/22 [...] Weinstein on 12/24/2021-on prednisone. He resides at [facility] past 3 months. He presented to [facility] on December 30, 2021 due to a sudden onset of alteredmental status and shortness of breath. At [facility], he was noted to have acute kidney injury with creatinine 2.3 and elevated troponin at 3577. EKG revealed normal sinus rhythm without evidenceof ST elevation or depression. Negative for COVID-19 at [facility]. He was transferred to [facility] for further evaluation. Echocardiogram on December 30, 2021 revealed an EF of 45 to 50% and mild MR. 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 Cardiothoracic surgery was consulted for possible surgical myocardial vascularization. 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 Endocrine consult placed by [facility] for diabetic management. Longstanding type II diabetic with A1c of 8.4%. Currently residing at [facility] with orders in place for Humalog 32 [...] 10 units qhs, metformin 500 twice daily, Btwlacrkh21va qd and a 0-10 sliding scale with [...] by CASPER MURRY on 01/11/2022 11:35 AM [facility] [id number] Note ORIGINAL EXAMINATION: CT OF THE CHEST [...] Sign Date: 01/10/2022 4:43:27 PM Ordering Provider: [facility]07-25-2022 Endocrinology Progress note Date of Service [...] Weinstein on 12/24/2021-on prednisone. He resides at [facility] past 3 months. He presented to [facility] on December 30, 2021 due to a sudden onset of alteredmental status and shortness of breath. At [facility], he was noted to have acute kidney injury with creatinine 2.3 and elevated troponin at 3577. EKG revealed normal sinus rhythm without evidenceof ST elevation or depression. Negative for COVID-19 at [facility]. He was transferred to [facility] for further evaluation. Echocardiogram on December 30, 2021 revealed an EF of 45 to 50% and mild MR. 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 Cardiothoracic surgery was consulted for possible surgical myocardial vascularization. 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 Endocrine consult placed by [facility] for diabetic management. Longstanding type II diabetic with A1c of 8.4%. Currently residing at [facility] with orders in place for Humalog 32 [...] by CASPER MURRY on 01/10/2022 04:44 PM [facility] [id number] Note ORIGINAL EXAMINATION: CT OF THE CHEST [...] Sign Date: 01/10/2022 4:43:27 PM Ordering Provider: [facility]07-25-2022 Note Date of Service 01/10/2022 Chief [...] cell arteritis on prednisone. He resides at [facility]. He presented on 12/30/2021 with sudden onset of altered mental status and shortness of breath. Troponin 3577. Creatinine elevated 2.3. He was transferred to [facility] for further evaluation. Echocardiogram completed showing [...] by NICHOLE RODRIGUEZ on 01/10/2022 08:37 AM [facility] [id number] Note Date of Service 01/09/2022 Repeat INR 6.3. Aquamephyton 10 mg SQ x1. Repeat INR in 4 hours. Digitally Signed by KASSIDY SHANKAR on 01/09/2022 02:03 PM [facility] [id number] Endocrinology Progress note Date of Service 01/09/22 [...] Weinstein on 12/24/2021-on prednisone. He resides at [facility] past 3 months. He presented to [facility] on December 30, 2021 due to a sudden onset of alteredmental status and shortness of breath. At [facility], he was noted to have acute kidney injury with creatinine 2.3 and elevated troponin at 3577. EKG revealed normal sinus rhythm without evidenceof ST elevation or depression. Negative for COVID-19 at [facility]. He was transferred to [facility] for further evaluation. Echocardiogram on December 30, 2021 revealed an EF of 45 to 50% and mild MR. 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 Cardiothoracic surgery was consulted for possible surgical myocardial vascularization. 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 Endocrine consult placed by [facility] for diabetic management. Longstanding type II diabetic with A1c of 8.4%. 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 [facility] Rehabilitation. He presented on 12/30/2021 with sudden onset ofaltered mental status and shortness of breath. Troponin 3577. Creatinine elevated 2.3. He was transferred to [facility] for further evaluation. Echocardiogram completed showing [...] Continue Central Line: For IV access Disposition: [place] Weight Current Weight Dosing Weight: 81.5 [...] baseline, plan follow-up with Dr. Montgomery from [place] at discharge currently NSR rate 60, Coumadin on hold secondary to elevated INR 4.8. 5. CKD (chronic kidney disease), stage III 6. AF (paroxysmal atrial fibrillation) Currently NSR rate 60, Coumadin on hold secondary to elevated INR 4.8.Repeat INR at noon. On amiodarone. Home amiodarone and Eliquis were both discontinued in August 2021 7. Diabetes Hgb A1c 8.4% Glucose 68-177, [place] inpatient endocrinology following 8. HTN (hypertension) Blood [...] by KASSIDY SHANKAR on 01/09/2022 11:51 AM [facility]Nxrwsvdo65-19-5706 Note ORIGINAL EXAMINATION: TWO XRAY VIEWS OF [...] Date: 01/09/2022 7:51:53 AM Ordering Provider: TRINY HERNANEDZ [id number] Note ORIGINAL EXAMINATION: TWO XRAY VIEWS OF [...] Date: 01/09/2022 7:51:53 AM Ordering Provider: TRINY [facility]07-23-2022 Endocrinology Progress note Date of Service [...] Glucose, Capillary 01/08/2022 16:28:00 EDT 132 mg/dL [place] 82-115 Glucose Testing Blood Glucose, Capillary 01/08/2022 [...] Weinstein on 12/24/2021-on prednisone. He resides at [facility] past 3 months. He presented to [facility] on December 30, 2021 due to a sudden onset of alteredmental status and shortness of breath. At [facility], he was noted to have acute kidney injury with creatinine 2.3 and elevated troponin at 3577. EKG revealed normal sinus rhythm without evidenceof ST elevation or depression. Negative for COVID-19 at [facility]. He was transferred to [facility] for further evaluation. Echocardiogram on December 30, 2021 revealed an EF of 45 to 50% and mild MR. 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 Cardiothoracic surgery was consulted for possible surgical myocardial vascularization. 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 Endocrine consult placed by [facility] for diabetic management. Longstanding type II diabetic with A1c of 8.4%. 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 He resides at [facility]. He presented on 12/30/2021 with sudden onset ofaltered mental status and shortness of breath. Troponin 3577. Creatinine elevated 2.3. He was transferred to [facility] for further evaluation. Echocardiogram completed showing [...] episodes of bradycardia. Plans to return to [facility] atdischarge Subjective No complaints Objective Vitals and [...] baseline, plan follow-up with Dr. Montgomery from [facility] at discharge, Urineoutput 1100 cc last 24 hours 5. CKD (chronic kidney disease), stage III 6. AF (paroxysmal atrial fibrillation) Currently atrial fibrillation rate 90, Coumadin, amiodarone, patient had previously been on amiodarone and Eliquis but these were discontinued in August 2021 7. Diabetes Hgb A1c 8.4% Glucose 141-249, [place] inpatient endocrinology following 8. HTN (hypertension) Blood [...] by KASSIDY SHANKAR on 01/08/2022 11:02 AM [facility] [id number] Note ORIGINAL EXAMINATION: ONE XRAY VIEW OF [...] Sign Date: 01/08/2022 7:49:49 AM Ordering Provider: [facility]07-23-2022 Note ORIGINAL EXAMINATION: ONE XRAY VIEW [...] Sign Date: 01/08/2022 7:49:49 AM Ordering Provider: [facility]07-22-2022 Nephrology Progress note Date of Service [...] renal standpoint. Patient will follow with his adult education teacher Dr. Montgomery in [place] on discharge. Discussed with patient. Digitally Signed by TAMIKA RODAS MD on 01/07/2022 12:42 PM [facility] [id number] Note ORIGINAL EXAMINATION: TWO XRAY VIEWS OF [...] 01/07/2022 12:23:59 PM Ordering Provider: BARRERA SALES [facility] HospitalKwhfwcwz90-29-9350 Endocrinology Progress note Date of Service 01/07/22 [...] Weinstein on 12/24/2021-on prednisone. He resides at [facility] past 3 months. He presented to [facility] on December 30, 2021 due to a sudden onset of alteredmental status and shortness of breath. At [facility], he was noted to have acute kidney injury with creatinine 2.3 and elevated troponin at 3577. EKG revealed normal sinus rhythm without evidenceof ST elevation or depression. Negative for COVID-19 at [facility]. He was transferred to [facility] for further evaluation. Echocardiogram on December 30, 2021 revealed an EF of 45 to 50% and mild MR. 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 Cardiothoracic surgery was consulted for possible surgical myocardial vascularization. 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 Endocrine consult placed by [facility] for diabetic management. Longstanding type II diabetic with A1c of 8.4%. Currently residing at [facility] with orders in place for Humalog 32 [...] by CASPER MURRY on 01/07/2022 04:39 PM [facility] HospitalCgikkfnt29-47-4474 Note Date of Service 01/07/2022 Chief Complaint [...] and shortness of breath. He resides at [facility]. He denied having any chest pain or syncope. He was found to have an acute kidney injury at that time with creati nine of 2.3 and a troponin of 3577 at [facility]. He was transferred to [place] for further evaluation where an echocardiogram revealed [...] Central venous access: Left subclavian triple-lumen Disposition: [facility] Weight Current Weight Dosing Weight: 81.5 [...] 7. Diabetes Hgb A1c 8.4% Followed by [place] inpatient endocrinology. Glucoses ranging 96-1 55. On [...] by YIMI NEWELL on 01/07/2022 10:01 AM [facility] HospitalAyjqmmxf90-67-6935 Anesthesiology Consult note Patient: ELIZABETH MODI Age: [...] LINN RICHARD DO on 01/07/2022 08:18 AM [facility] HospitalPkynxsdy08-57-4492 Note ORIGINAL EXAMINATION: TWO XRAY VIEWS OF [...] Sign Date: 01/07/2022 12:23:59 PM Ordering Provider: [facility]07-21-2022 Nephrology Progress note Date of Service 01/06/2022 [...] TAMIKA RODAS MD on 01/06/2022 10:19 AM [facility] HospitalPbchijwe23-04-6159 Endocrinology Progress note Date of Service 01/06/22 [...] Glucose Level 01/05/2022 12:54:00 EDT 147 mg/dL [place] 82-115 Glucose Testing Blood Glucose, Capillary 01/05/2022 [...] Weinstein on 12/24/2021-on prednisone. He resides at [facility] past 3 months. He presented to [facility] on December 30, 2021 due to a sudden onset of alteredmental status and shortness of breath. At [facility], he was noted to have acute kidney injury with creatinine 2.3 and elevated troponin at 3577. EKG revealed normal sinus rhythm without evidenceof ST elevation or depression. Negative for COVID-19 at [facility]. He was transferred to [facility] for further evaluation. Echocardiogram on December 30, 2021 revealed an EF of 45 to 50% and mild MR. Cardiac catheterization completed showing multivessel disease.Cardiothoracic surgery has been consulted for possible surgical myocardial vascularization. Endocrine consult placed by [facility] for diabetic management. Longstanding type II diabetic with A1c of 8.4%. Currently residing at [facility] with orders in place for Humalog 32 [...] by CASPER MURRY on 01/06/2022 04:03 PM [facility] HospitalCwssskkm23-13-4421 Note Date of Service 01/06/2022 Chief Complaint [...] and shortness of breath. He resides at [facility]. He denied having any chest pain or syncope. He was found to have an acute kidney injury at that time with creati nine of 2.3 and a troponin of 3577 at [facility]. He was transferred to [place] for further evaluation where an echocardiogram revealed [...] morning, no signs of active bleeding 4. UQIN (acute kidney injury) BUN and creatinine this [...] 1 45, on insulin drip per the [facility] ICU glycemic protocol at 8 [...] by BARRERA SALES on 01/06/2022 07:42 AM [facility] [id number] Note ORIGINAL EXAMINATION: ONE XRAY VIEW OF [...] 01/06/2022 6:18:00 AM Ordering Provider: TRINY HERNANDEZ [facility] HospitalYwazvula57-71-5338 Note ORIGINAL EXAMINATION: ONE XRAY VIEW OF [...] Date: 01/06/2022 6:18:00 AM Ordering Provider: TRINY [facility]07-20-2022 Cardiology Progress note Date of Service [...] CELIO CLAROS MD on 01/05/2022 02:25 PM [facility] HospitalJdrgnrau08-89-9310 Nephrology Progress note Date of Service 01/05/2022 [...] TAMIKA RODAS MD on 01/05/2022 02:15 PM [facility] HospitalWhxnpasu94-25-5795 Note ORIGINAL HISTORY: Line placement COMPARISON: 5 [...] Sign Date: 01/05/2022 1:24:35 PM Ordering Provider: [facility]07-20-2022 Note ORIGINAL HISTORY: Nasogastric tube placement COMPARISON: No FINDINGS: There is a nasogastric tube with tip in the stomach and side hole at the gastroesophageal junction. Interpreted by: Zack Bucio MD Preliminary Report By: Zack Bucio MD Electronically signed By Zack Bucio MD Dictated Date: 01/05/2022 1:22:43 PM Prelim Date: 01/05/2022 1:23:19 PM Sign Date: 01/05/2022 1:23:19 PM Ordering Provider: [facility]07-20-2022 Note ORIGINAL HISTORY: Line placement COMPARISON: 5 [...] By: Zack Bucio MD Electronically signed By aZck Bucio MD Dictated Date: 01/05/2022 1:23:29 PM Prelim Date: 01/05/2022 1:24:35 PM Sign Date: 01/05/2022 1:24:35 PM Ordering Provider: [facility]07-20-2022 Note ORIGINAL HISTORY: Nasogastric tube placement COMPARISON: No FINDINGS: There is a nasogastric tube with tip in the stomach and side hole at the gastroesophageal junction. Interpreted by: Zack Bucio MD Preliminary Report By: Zack Bucio MD Electronically signed By Zack Bucio MD Dictated Date: 01/05/2022 1:22:43 PM Prelim Date: 01/05/2022 1:23:19 PM Sign Date: 01/05/2022 1:23:19 PM Ordering Provider: [facility]07-20-2022 Cardiology Progress note Date of Service 01/05/22 [...] CELIO CLAROS MD on 01/05/2022 02:25 PM [facility] HospitalLguunaeg45-08-2632 Anesthesiology Consult note Patient: ELIZABETH MODI Age: [...] kidney disease), stage III / SNOMED CT 8671131986 / Confirmed CAD (coronary artery disease) / SNOMED CT 92208287 / Confirmed Diabetes / SNOMED CT 934643433 / Confirmed History of Singh's palsy / SNOMED CT 463871102 / Confirmed HLD (hyperlipidemia) / SNOMED CT 29718992 / Confirmed HTN (hypertension) / SNOMED CT 3787977998 / Confirmed Hypothyroid / SNOMED CT 00340946 / Confirmed QUIN (acute kidney injury) / SNOMED CT 80765201 / Confirmed Mood disorder / SNOMED CT 22906335 / Confirmed NSTEMI (non-ST elevated myocardial infarction) / SNOMED CT 82018814 / Confirmed AF (paroxysmal atrial fibrillation) / SNOMED CT 083287132 / Confirmed PVD (peripheral vascular disease) / SNOMED CT 9156499675 / Confirmed Giant cell arteritis / SNOMED CT 5080446787 / Confirmed, Active Problems (24) AF (paroxysmal atrial fibrillation) QUIN (acute kidney injury) CAD (coronary artery disease) Cataract CKD (chronic kidney disease), stage III COPD (chronic obstructive pulmonary disease) Depression Diabetes DM (diabetes mellitus) Giant cell arteritis Giant cell arteritis syndrome Glasses Heart disease High blood pressure History of Singh's palsy HLD (hyperlipidemia) HTN (hypertension) Hypothyroid Kidney disease WA (myocardial infarction) Mood disorder NSTEMI (non-ST elevated myocardial infarction) PVD (peripheral vascular disease) Tachycardia Histories Past Medical History: No active or resolved past medical history items have been selected or recorded. Family History: No family history items have been selected or recorded. Procedure history: Amputation ([id number]) in 2020 at 79 Years. Comments: 07/12/2021 14:23 Maria Esther Navarro RN Left below the knee Amputation ([id number]) in 2020 at 79 Years. Comments: 07/12/2021 14:24 Maria Esther Navarro RN right below the knee amputation Catheter ([id number]) in 2020 at 79 Years. Comments: 07/12/2021 14:25 Maria Esther Navarro RN Temporary dialysis cath None ([id number]). 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 No Location Manager On Yes Patient Dressed In Hospital gown [...] On and Limits Checked Nail Bed Color [place] Capillary Refill < 2 seconds Heart Sounds [...] Warm Temperature All Extremities Warm Skin Description [place], Normal for ethnicity, Dry Skin Integrity Pressure points intact Skin Turgor Elastic Mucous Membrane Color [place] Mucous Membrane Description Moist Sensory Perception Dre [...] Rhythm Sinus rhythm Monitoring Lead II, V1/MCL1 [place] Interval 0.17 second(s) QRS Duration 0.12 second(s) [...] Transport Mode Order Detail MTT with Monitor Occupational Health Physician Details Form Occupational Health Physician Details Form 01/05/2022 0:28 EDT Skin Assessment [...] Transport Mode Order Detail MTT with Monitor Occupational Health Physician Details Form Occupational Health Physician Details Form 01/04/2022 23:29 EDT heparin Begin [...] On and Limits Checked Nail Bed Color [place] Capillary Refill < 2 seconds Heart Sounds ICU S1S2 Heart Rhythm Regular Radial Pulse, Left 2+ Normal Radial Pulse, Right 2+ Normal Popliteal Pulse, Left 1+ Thready Popliteal Pulse, Right 1+ Thready Edema Generalized None Cardiac Rhythm Sinus rhythm Monitoring Lead II, V1/MCL1 [place] Interval 0.18 second(s) QRS Duration 0.12 second(s) QT Interval 0.47 second(s) QTc Interval 0.48 second(s) Alarms On and Functional Yes Respirations Unlabored Respiratory Pattern Regular Breath Sounds Auscultated Anterior only All Lobes Breath Sounds Clear Oxygen Therapy Room air Abdomen Description Non-distended, Symmetric, Soft Abdomen Palpation Non-Tender Bowel Sounds All Quadrants Present Urinary Elimination Voiding, no difficulties All Extremity Description [place], Normal for ethnicity Skin Temperature Warm Temperature All Extremities Warm Skin Description [place], Normal for ethnicity Mucous Membrane Color [place] Mucous Membrane Description Moist Leg Bilateral Skin [...] 21:26 EDT Blood Glucose, Capillary 206 mg/dL [place] Blood Glucose Testing Reason Routine 01/04/2022 19:40 EDT Temperature Oral 36.6 DegC Reason For Taking VItal Signs Routine Primary Pain Intensity 0 Primary Pain Nonverbal Response Appears restful Pain Scale Type 0-10 Pain scale Monitor Alarms On and Limits Checked Nail Bed Color [place] Capillary Refill < 2 seconds Heart Sounds ICU S1S2 Heart Rhythm Regular Radial Pulse, Left 2+ Normal Radial Pulse, Right 2+ Normal Popliteal Pulse, Left 1+ [place]ready Popliteal Pulse, Right 1+ [place] Edema Generalized None Cardiac Rhythm Sinus rhythm Monitoring Lead II, V1/MCL1 [place] Interval 0.19 second(s) QRS Duration 0.12 second(s) [...] Facial Movement Symmetric resting/crying All Extremity Description [place], Normal for ethnicity Skin Temperature Warm Temperature All Extremities Warm Skin Description [place], Normal for ethnicity Skin Integrity Pressure points intact Skin Turgor Elastic Mucous Membrane Color [place] Mucous Membrane Description Moist Sensory Perception Dre [...] Symptoms Bruising Skin Temperature Warm Skin Description [place], Normal for ethnicity Skin Integrity Intact Skin Turgor Elastic Mucous Membrane Color [place] Mucous Membrane Description Moist Sensory Perception Dre [...] On and Limits Checked Nail Bed Color [place] Capillary Refill < 2 seconds Heart Sounds [...] Facial Movement Symmetric resting/crying All Extremity Description [place], Normal for ethnicity Skin Temperature Warm Temperature All Extremities Warm Skin Description [place], Normal for ethnicity Skin Integrity Pressure points intact Skin Turgor Non-Elastic Mucous Membrane Color [place] Mucous Membrane Description Moist Leg Bilateral Skin [...] Rhythm Sinus rhythm Monitoring Lead III, V1/MCL1 [place] Interval 0.20 second(s) QRS Duration 0.09 second(s) [...] mEq predniSONE 10 mg mg vitamin A 16671 unit(s) unit(s) 01/04/2022 8:39 EDT Heart Rate Monitored 59 bpm LOW Reason For Taking VItal Signs Routine Primary Pain Intensity 0 Primary Pain Nonverbal Response Nods No Pain Scale Type 0-10 Pain scale Monitor Alarms On and Limits Checked Nail Bed Color [place] Capill (more content not included)... [facility] HospitalFwlzbnat75-13-5217 Cardiology Progress note Date of Service 01/04/22 [...] CELIO CLAROS MD on 01/04/2022 02:59 PM [facility] HospitalUtedeiwk23-70-7875 Cardiology Progress note Date of Service 01/04/22 [...] CELIO CLAROS MD on 01/04/2022 02:59 PM [facility] HospitalEpfhpfin70-44-5611 Endocrinology Progress note Date of Service 01/04/22 [...] Weinstein on 12/24/2021-on prednisone. He resides at [facility] past 3 months. He presented to [facility] on December 30, 2021 due to a sudden onset of alteredmental status and shortness of breath. At [facility], he was noted to have acute kidney injury with creatinine 2.3 and elevated troponin at 3577. EKG revealed normal sinus rhythm without evidenceof ST elevation or depression. Negative for COVID-19 at [facility]. He was transferred to [facility] for further evaluation. Echocardiogram on December 30, 2021 revealed an EF of 45 to 50% and mild MR. Cardiac catheterization completed showing multivessel disease.Cardiothoracic surgery has been consulted for possible surgical myocardial vascularization. Endocrine consult placed by [facility] for diabetic management. Longstanding type II diabetic with A1c of 8.4%. Currently residing at [facility] with orders in place for Humalog 32 [...] by CASPER MURRY on 01/04/2022 04:05 PM [facility] HospitalJfwbzjig35-15-8423 Note ORIGINAL EXAMINATION: CTA OF THE NECK [...] Sign Date: 01/04/2022 9:39:34 AM Ordering Provider: [facility]07-18-2022 Cardiology Progress note Date of Service 01/03/22 [...] Time Spent 35 mins Digitally Signed by CLEIO CLAROS MD on 01/03/2022 06:35 PM [facility] HospitalVghnphpc95-16-1398 Note ORIGINAL EXAMINATION: CTA OF THE NECK [...] Date: 01/04/2022 9:39:34 AM Ordering Provider: [facility]ARR[facility]A [facility]07-18-2022 Nurse Progress note [address] CT, they said patient okay to come to CT with contrast after having metformin this AM 01/03/22. Pharmacy said to check with prescriber. Dr. Claros said patient okay to go to CT with contrast after taking metformin this AM 01/03/22. Digitally Signed by Macy Bolanos RN on 01/03/2022 04:45 PM [facility] HospitalDoodqpfo83-73-3606 Cardiology Progress note Date of Service 01/03/22 [...] CELIO CLAROS MD on 01/03/2022 06:35 PM [facility] HospitalOuuaytrb40-30-3588 Nephrology Progress note Date of Service 01/03/2022 [...] TAMIKA RODAS MD on 01/03/2022 10:59 AM [facility] HospitalRyzbyqkl98-59-2975 Endocrinology Progress note Date of Service 01/03/22 [...] Glucose, Capillary 01/03/2022 07:10:00 EDT 174 mg/dL WA 82-115 Glucose Testing Glucose Level 01/03/2022 03:44:00 EDT 157 mg/dL WA 82-115 Glucose Testing Blood Glucose, Capillary 01/02/2022 21:13:00 EDT 222 mg/dL [place] 82-115 Glucose Testing Blood Glucose, Capillary 01/02/2022 16:20:00 EDT 247 mg/dL WA 82-115 Glucose Testing Blood Glucose, Capillary 01/02/2022 11:29:00 EDT 177 mg/dL WA 82-115 EKG No qualifying data available. Assessment/Plan [...] Weinstein on 12/24/2021-on prednisone. He resides at [facility] past 3 months. He presented to [facility] on December 30, 2021 due to a sudden onset of alteredmental status and shortness of breath. At [facility], he was noted to have acute kidney injury with creatinine 2.3 and elevated troponin at 3577. EKG revealed normal sinus rhythm without evidenceof ST elevation or depression. Negative for COVID-19 at [facility]. He was transferred to [facility] for further evaluation. Echocardiogram on December 30, 2021 revealed an EF of 45 to 50% and mild MR. Cardiac catheterization completed showing multivessel disease.Cardiothoracic surgery has been consulted for possible surgical myocardial vascularization. Endocrine consult placed by [facility] for diabetic management. Longstanding type II diabetic with A1c of 8.4%. Currently residing at [facility] with orders in place for Humalog 32 [...] by CASPER MURRY on 01/03/2022 11:17 AM [facility] HospitalXwgyvwai06-80-5315 Cardiology Progress note Date of Service 01/02/2022 [...] BILL ALMODOVAR MD on 01/02/2022 04:22 PM [facility] HospitalPjwuzwsd37-29-0693 Cardiology Progress note Date of Service 01/02/2022 [...] BILL ALMODOVAR MD on 01/02/2022 04:22 PM [facility] HospitalNfmjqxbw64-52-5925 Endocrinology Progress note Date of Service 01/02/22 [...] Glucose, Capillary 01/01/2022 18:20:00 EDT 131 mg/dL WA 82-115 Glucose Testing Blood Glucose, Capillary 01/01/2022 [...] Weinstein on 12/24/2021-on prednisone. He resides at [facility] past 3 months. He presented to [facility] on December 30, 2021 due to a sudden onset of alteredmental status and shortness of breath. At [facility], he was noted to have acute kidney injury with creatinine 2.3 and elevated troponin at 3577. EKG revealed normal sinus rhythm without evidenceof ST elevation or depression. Negative for COVID-19 at [facility]. He was transferred to [facility] for further evaluation. Echocardiogram on December 30, 2021 revealed an EF of 45 to 50% and mild MR. Cardiac catheterization completed showing multivessel disease.Cardiothoracic surgery has been consulted for possible surgical myocardial vascularization. Endocrine consult placed by [facility] for diabetic management. Longstanding type II diabetic with A1c of 8.4%. Currently residing at [facility] with orders in place for Humalog 32 [...] same inpatient. Last 24 Hours: Met w/ rubber stamp die inspector; appreciate input and teaching. Current orders are in place for a 2-18 sliding scale with meals and at bedtime alone. Blood glucose this morning with the same 91. Discussed with [employer] COLD MOLDING PRESS OPERATOR Katelynn. [facility] work-up continues. No definitive date for CABG. Add low-dose metformin 500 mg twice daily. Hold off on SGLT2 until postop. GLP analog could be considered outpatient. Reintroduction of basal IP as needed. Discussed with bedside RN Will continue to follow while inpatient. Time Spent Total time spent 25 minutes Digitally Signed by CASPER MURRY on 01/02/2022 01:55 PM [facility] HospitalItvoioqx58-61-5462 Nurse Progress note A student nurse administered medications and completed assessments on this patient under my supervision this evening. Nayeli Beckham RN Digitally Signed by YURI Beckham on 01/02/2022 01:02 AM [facility] HospitalFbupjkkp49-83-3514 Cardiology Progress note Date of Service 01/01/2022 [...] BILL ALMODOVAR MD on 01/01/2022 08:04 PM [id number] Cardiology Progress note Date of Service 01/01/2022 [...] BILL ALMODOVAR MD on 01/01/2022 08:04 PM [facility] [id number] Note I saw and evaluated the patient on 01/01/2022. I agree with the RETAIL PERSONAL BANKER note of 12/31/2021. The patient is an [...] TRINY HERNANDEZ MD on 01/01/2022 10:53 AM [facility] [id number] Cardiothoracic surgery Consult note Date of Service [...] Weinstein on 12/24/2021-on prednison. He resides at [facility] for the past 3 months. He presented to [facility] on December 30, 2021 due to a sudden onset of altered mental status and shortness of breath. He endorses nonproductive cough. Denied any chest pain or syncope. At [facility], he was noted to have acute kidney injury with creatinine 2.3 and elevated troponinat 3577. EKG revealed normal sinus rhythm without evidence of ST elevation or depression. Negative for COVID-19 at [facility]. He was transferred to [facility] for further evaluation. Echocardiogram on [...] follows with Dr. Montgomery of nephrology in [place]. 5. AF (paroxysmal atrial fibrillation) Currently in [...] from EMR and transfer halfway documentation, conducting dzem-kz-dpnj visit with patient at bedside, and dictating details of today'svisit. Problem List/Past Medical History Ongoing AF (paroxysmal atrial fibrillation) QIUN (acute kidney injury) CAD (coronary artery disease) [...] Patient denies Living arrangements: Currently lives at [facility] however lived at home prior to [...] YIMI NEWELL APRN-GURWINDER on 12/31/2021 05:21 PM [facility] [id number] Endocrinology Consult note Date of Service 01/01/22 [...] Weinstein on 12/24/2021-on prednisone. He resides at [facility] forthe past 3 months. He presented to [facility] on December 30, 2021 due to a sudden onset of alteredmental status and shortness of breath. At [facility], he was noted to have acute kidney injury with creatinine 2.3 and elevated troponin at 3577. EKG revealed normal sinus rhythm without evidenceof ST elevation or depression. Negative for COVID-19 at [facility]. He was transferred to [facility] for further evaluation. Echocardiogram on [...] Managed by his PCP. Currently resides at [facility]. He is unable to speak to [...] not caring much for the food at [facility]. He reports weight of 156 p ounds [...] thyroid disease but does have orders per [facility] for levothyroxine 50 mcg daily and carries [...] Subcutaneous, achs, NOW, 0, 01/01/22 8:24:00 EDT [place] [employer] Diet Consult to Diabetes [...] Weinstein on 12/24/2021-on prednisone. He resides at [facility] past 3 months. He presented to [facility] on December 30, 2021 due to a sudden onset of alteredmental status and shortness of breath. At [facility], he was noted to have acute kidney injury with creatinine 2.3 and elevated troponin at 3577. EKG revealed normal sinus rhythm without evidenceof ST elevation or depression. Negative for COVID-19 at [facility]. He was transferred to [facility] for further evaluation. Echocardiogram on December 30, 2021 revealed an EF of 45 to 50% and mild MR. Cardiac catheterization completed showing multivessel disease.Cardiothoracic surgery hasbeen consulted for possible surgical myocardial vascularization. Endocrine consult placed by CTS for diabetic management. Longstanding type II diabetic with A1c of 8.4%. Currently residing at [facility] with orders in place for Humalog 32 [...] by CASPER MURRY on 01/01/2022 03:38 PM [facility] [id number] Nephrology Progress note Date of Service 01/01/2022 [...] TAMIKA RODAS MD on 01/01/2022 09:57 AM [facility] [id number] Nephrology Progress note Date of Service 01/01/2022 [...] TAMIKA RODAS MD on 01/01/2022 09:57 AM [facility] [id number] Cardiothoracic surgery Consult note Date of Service [...] Weinstein on 12/24/2021-on prednison. He resides at [facility] for the past 3 months. He presented to [facility] on December 30, 2021 due to a sudden onset of altered mental status and shortness of breath. He endorses nonproductive cough. Denied any chest pain or syncope. At [facility], he was noted to have acute kidney injury with creatinine 2.3 and elevated troponinat 3577. EKG revealed normal sinus rhythm without evidence of ST elevation or depression. Negative for COVID-19 at [facility]. He was transferred to [facility] for further evaluation. Echocardiogram on [...] follows with Dr. Montgomery of nephrology in [place]. 5. AF (paroxysmal atrial fibrillation) Currently in [...] from EMR and transfer halfway documentation, conducting vzaa-wu-zald visit with patient at bedside, and dictating [...] Patient denies Living arrangements: Currently lives at [facility] however lived at home prior to Ambulatory [...] by YIMI NEWELL on 12/31/2021 05:21 PM [facility] [id number] Nephrology Progress note Date of Service 12/31/2021 [...] TAMIKA RODAS MD on 12/31/2021 11:26 AM [facility] [id number] Note ORIGINAL EXAMINATION: ONE XRAY VIEW OF [...] Date: 12/31/2021 8:13:17 AM Ordering Provider: [facility]07-14-2022 History and physical note Date of Service 12/30/2021 Chief Complaint chest pain History of Present Illness This is a 81-year-old male, halfway resident with prior history of atrial fibrillation, type 2diabetes, hypothyroidism, mood disorder, bilateral BKA's, hyperlipidemia who presented to due toaltered mental status. He was there diagnosed with non-ST elevation WA with troponin elevation of 3000 and uptrending. Patient also had an QUIN with creatinine 2.3. Currently patient denies any chest pain or palpitations. He denies prior history of coronary artery disease. However on further questioning does endorse he may have had a left heart catheterization at [facility] 1 year ago. Patient is a poor [...] 36 Hour Lab Data Assessment/Plan Non-ST elevation [place] ? history of atrial fibrillation on Eliquis, [...] DE LEÓN MD on 12/30/2021 10:03 AM [facility] [id number] Evaluation + Plan noteExtracted from: Title:History and Physical Author:HASEEB DE LEÓN MD Date:12/30/21 Non-ST elevation [place] ? history of atrial fibrillation on Eliquis, [...] MARLYS Appointment Type:CV OV Hospital [facility] 07-14-2022 Nephrology Consult note Date of Service 12/30/2021 Reason for Consultation Stage III CKD, needs clearance for cardiac catheterization. Referring Physician Dr. Hidalgo. History of Present Illness Mr. Modi is a very pleasant 81-year-old gentleman with past medical history of hypertension, diabetes, atrial fibrillation on anticoagulation, hypothyroidism who is a resident of nursing facility in [place]. Patient was sent to [facility] due to altered mental status. He was also having chest pain. Initial lab work done at [facility] showed elevated troponin in the range of 3000.Patient was diagnosed with acute non-STEMI. He was transferred to [facility] for further management. He also had acute renal failure with creatinine of around 2.3 at ER. Repeat blood work in [place] showed that his creatinine has improved to 1.9. Patient does have history of CKD and follows with Dr. Montgomery in [place]. Dr. Montgomery does not have privileges at [facility]. Renal consultation was requested for acute [...] pain. He has been at halfway in [place] from July 2021. Per family he is going to be at the halfway long-term. Patient developed c hest pain and altered mental status at halfway for which he was sent to ER. Over there he was diagnosed with acute non-STEMI with elevated troponin levels and eventually transferred to [facility]. His home medication list includes JERO inhibitor. [facility] Review of all other systems is negative. [...] TAMIKA RODAS MD on 12/30/2021 11:57 AM [facility] [id number] History and physical note Date of Service 12/30/2021 Chief Complaint chest pain History of Present Illness This is a 81-year-old male, halfway resident with prior history of atrial fibrillation, type 2diabetes, hypothyroidism, mood disorder, bilateral BKA's, hyperlipidemia who presented to due toaltered mental status. He was there diagnosed with non-ST elevation WA with troponin elevation of 3000 and uptrending. Patient also had an QUIN with creatinine 2.3. Currently patient denies any chest pain or palpitations. He denies prior history of coronary artery disease. However on further questioning does endorse he may have had a left heart catheterization at [facility] 1 year ago. Patient is a poor [...] 36 Hour Lab Data Assessment/Plan Non-ST elevation [place] ? history of atrial fibrillation on Eliquis, [...] age: 55 Years., 07/12/2021 Immunizations SARS-CoV-2 (COVID-19) mRNA-[id number] vaccine: 0.3 unknown unit (05/21/21) SARS-CoV-2 (COVID-19) mRNA-1273 vaccine: 0 unknown unit (10/13/20) SARS-CoV-2 (COVID-19) mRNA-1273 vaccine: 0 unknown unit (09/15/20) Code Status Code Status - Ordered -- 12/30/21 6:48:00 EDT, Full Code, Constant Order Digitally Signed by HASEEB DE LEÓN MD on 12/30/2021 10:03 AM [facility] [id number] Hospital Discharge instructions Follow Up Care 12/30/2021 04:59:03 With:[facility] Address: [address] [facility] [address] [facility] [place] [address]- When:01/17/2022 13:30:00 Comments:please obtain a CXR 1 hour prior to your appt. With:Discharge to [facility] LOC [phone] Address:Unknown When:1-2 days With:KARL HIDALGO MD Address: [address] [facility] [place] [address]- When:02/15/2022 10:00:00 With:Cardiac Rehab- [facility] Address: [facility] [address] [place] [address]- When: Unknown Comments:The Cardiac Rehab department will call you to schedule you for phase 2. We left you a brochure withinformation about cardiac rehab. If you have any questions please call [phone]. [facility] 08-24-2021 History of Present illness Narrative* Thu Roche RN - 02/09/2021 11:33 AM EDT Discharge instructions given to pt and nail mill worker at bedside. All questions answered. All belongingsat bedside. VSS. Pt resting comfortably, denies pain * Thu Roche RN - 02/09/2021 11:17 AM EDT Report called to Leighann VALE at [facility] * Thu Roche RN - 02/09/2021 11:08 AM EDT marketing assistant to bedside * Thu Roche RN - 02/09/2021 11:03 AM EDT Pt arrived to [facility] 42. Attached to squeegee finisher. VSS. molding line assistant updated * Lindsey Morales RN - 02/09/2021 8:33 AM EDT Notified anesthesia blood sugar is 284 * Jazmín Burton RN - 02/05/2021 4:[address] Vicente's office called and stated pt should not hold Eliquis nor Aspirin before surgery. Will include on pre-op instructions for facility. documented in this [facility] Work Phone: Anesthesiology Consult note* [...] kidney disease), stage III / SNOMED CT 4019571778 / Confirmed CAD (coronary artery disease) / SNOMED CT 43558960 / Confirmed Diabetes / SNOMED CT 725272404 / Confirmed History of Singh's palsy / SNOMED CT 815726762 / Confirmed HLD (hyperlipidemia) / SNOMED CT 21944949 / Confirmed HTN (hypertension) / SNOMED CT 6283211836 / Confirmed Hypothyroid / SNOMED CT 12983482 / Confirmed QUIN (acute kidney injury) / SNOMED CT 84034315 / Confirmed Mood disorder / SNOMED CT 73129445 / Confirmed NSTEMI (non-ST elevated myocardial infarction) / SNOMED CT 65096605 / Confirmed AF (paroxysmal atrial fibrillation) / SNOMED CT 020486773 / Confirmed PVD (peripheral vascular disease) / SNOMED CT 1993805416 / Confirmed Giant cell arteritis / SNOMED CT 3138430673 / Confirmed, Active Problems (24) AF (paroxysmal atrial fibrillation) QUIN (acute kidney injury) CAD (coronary artery disease) Cataract CKD (chronic kidney disease), stage III COPD (chronic obstructive pulmonary disease) Depression Diabetes DM (diabetes mellitus) Giant cell arteritis Giant cell arteritis syndrome Glasses Heart disease High blood pressure History of Singh's palsy HLD (hyperlipidemia) HTN (hypertension) Hypothyroid Kidney disease WA (myocardial infarction) Mood disorder NSTEMI (non-ST elevated myocardial infarction) PVD (peripheral vascular disease) Tachycardia Histories Past Medical History: No active or resolved past medical history items have been selected or recorded. Family History: No family history items have been selected or recorded. Procedure history: Amputation ([id number]) in 2020 at 79 Years. Comments: 07/12/2021 14:23 Maria Esther Navarro RN Left below the knee Amputation ([id number]) in 2020 at 79 Years. Comments: 07/12/2021 14:24 Maria Esther Navarro RN right below the knee amputation Catheter ([id number]) in 2020 at 79 Years. Comments: 07/12/2021 14:25 Maria Esther Navarro RN Temporary dialysis cath None ([id number]). 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 No Location Manager On Yes Patient Dressed In Hospital gown [...] On and Limits Checked Nail Bed Color [place] Capillary Refill < 2 seconds Heart Sounds [...] Warm Temperature All Extremities Warm Skin Description [place], Normal for ethnicity, Dry Skin Integrity Pressure points intact Skin Turgor Elastic Mucous Membrane Color [place] Mucous Membrane Description Moist Sensory Perception Dre [...] Rhythm Sinus rhythm Monitoring Lead II, V1/MCL1 [place] Interval 0.17 second(s) QRS Duration 0.12 second(s) [...] Transport Mode Order Detail MTT with Monitor Occupational Health Physician Details Form Occupational Health Physician Details Form 01/05/2022 0:28 EDT Skin Assessment [...] Transport Mode Order Detail MTT with Monitor Occupational Health Physician Details Form Occupational Health Physician Details Form 01/04/2022 23:29 EDT heparin Begin [...] On and Limits Checked Nail Bed Color [place] Capillary Refill < 2 seconds Heart Sounds ICU S1S2 Heart Rhythm Regular Radial Pulse, Left 2+ Normal Radial Pulse, Right 2+ Normal Popliteal Pulse, Left 1+ Thready Popliteal Pulse, Right 1+ Thready Edema Generalized None Cardiac Rhythm Sinus rhythm Monitoring Lead II, V1/MCL1 [place] Interval 0.18 second(s) QRS Duration 0.12 second(s) QT Interval 0.47 second(s) QTc Interval 0.48 second(s) Alarms On and Functional Yes Respirations Unlabored Respiratory Pattern Regular Breath Sounds Auscultated Anterior only All Lobes Breath Sounds Clear Oxygen Therapy Room air Abdomen Description Non-distended, Symmetric, Soft Abdomen Palpation Non-Tender Bowel Sounds All Quadrants Present Urinary Elimination Voiding, no difficulties All Extremity Description [place], Normal for ethnicity Skin Temperature Warm Temperature All Extremities Warm Skin Description [place], Normal for ethnicity Mucous Membrane Color [place] Mucous Membrane Description Moist Leg Bilateral Skin [...] 21:26 EDT Blood Glucose, Capillary 206 mg/dL [place] Blood Glucose Testing Reason Routine 01/04/2022 19:40 EDT Temperature Oral 36.6 DegC Reason For Taking VItal Signs Routine Primary Pain Intensity 0 Primary Pain Nonverbal Response Appears restful Pain Scale Type 0-10 Pain scale Monitor Alarms On and Limits Checked Nail Bed Color [place] Capillary Refill < 2 seconds Heart Sounds ICU S1S2 Heart Rhythm Regular Radial Pulse, Left 2+ Normal Radial Pulse, Right 2+ Normal Popliteal Pulse, Left 1+ Thready Popliteal Pulse, Right 1+ Thready Edema Generalized None Cardiac Rhythm Sinus rhythm Monitoring Lead II, V1/MCL1 [place] Interval 0.19 second(s) QRS Duration 0.12 second(s) [...] Facial Movement Symmetric resting/crying All Extremity Description [place], Normal for ethnicity Skin Temperature Warm Temperature All Extremities Warm Skin Description [place], Normal for ethnicity Skin Integrity Pressure points intact Skin Turgor Elastic Mucous Membrane Color [place] Mucous Membrane Description Moist Sensory Perception Dre [...] Symptoms Bruising Skin Temperature Warm Skin Description [place], Normal for ethnicity Skin Integrity Intact Skin Turgor Elastic Mucous Membrane Color [place] Mucous Membrane Description Moist Sensory Perception Dre [...] On and Limits Checked Nail Bed Color [place] Capillary Refill < 2 seconds Heart Sounds [...] Facial Movement Symmetric resting/crying All Extremity Description [place], Normal for ethnicity Skin Temperature Warm Temperature All Extremities Warm Skin Description [place], Normal for ethnicity Skin Integrity Pressure points intact Skin Turgor Non-Elastic Mucous Membrane Color [place] Mucous Membrane Description Moist Leg Bilateral Skin [...] 11:06 EDT Blood Glucose, Capillary 148 mg/dL [place] Blood Glucose Testing Reason Routine Temperature Oral [...] Rhythm Sinus rhythm Monitoring Lead III, V1/MCL1 [place] Interval 0.20 second(s) QRS Duration 0.09 second(s) [...] mEq predniSONE 10 mg mg vitamin A 57536 unit(s) unit(s) 01/04/2022 8:39 EDT Heart Rate Monitored 59 bpm LOW Reason For Taking VItal Signs Routine Primary Pain Intensity 0 Primary Pain Nonverbal Response Nods No Pain Scale Type 0-10 Pain scale Monitor Alarms On and Limits Checked Nail Bed Color [place] Capillary Refill < 2 seconds Heart Sounds [...] Facial Movement Symmetric resting/crying All Extremity Description [place], Normal for ethnicity Skin Temperature Warm Temperature All Extremities Warm Skin Description [place], Normal for ethnicity Skin Integrity Pressure points intact Skin Turgor Non-Elastic Mucous Membrane Color [place] Mucous Membrane Description Moist Leg Bilateral Wound [...] Transport Mode Order Detail MTT with Monitor Occupational Health Physician Details Form Occupational Health Physician Details Form 01/04/2022 7:11 EDT Blood Glucose, [...] Rhythm Sinus rhythm Monitoring Lead III, V1/MCL1 [place] Interval 0.18 second(s) QRS Duration 0.09 second(s) [...] Type 0-10 Pain scale Nail Bed Color [place] Capillary Refill < 2 seconds Heart Sounds [...] Facial Movement Symmetric resting/crying All Extremity Description [place], Normal for ethnicity Skin Temperature Warm Temperature All Extremities Warm Skin Description Normal for ethnicity Skin Integrity Pressure points intact Skin Turgor Non-Elastic Mucous Membrane Color [place] Mucous Membrane Description Moist Leg Bilateral Skin [...] Rhythm Sinus rhythm Monitoring Lead III, V1/MCL1 [place] Interval 0.20 second(s) QRS Duration 0.09 second(s) [...] Light Use Yes . Assessment and Plan [place] [employer] (ASA) physical status [...] LINN RICHARD DO on 01/05/2022 07:59 AM [facility] Evaluation + Plan note Future Appointments Appointment Date:02/07/2022 01:00:00 PM Scheduled Provider:HUNTER FALCON Location:[facility] Appointment Type:CTS OV Post Op Follow Up Appointment Date:02/15/2022 10:00:00 AM Scheduled Provider: Location:[facility] Appointment Type:CV OV Hospital Follow Up Future Scheduled Tests Radiology* XR Chest 2 Views (PA & Lateral) 02/07/22 [facility] evaluation note* Diagnosis Optic nerve edema- Primary Papilloedema, unspecified [facility]* Diagnosis Vision changes- Primary Unspecified visual disturbance Photosensitivity Acute dermatitis due to solar radiation PVD (peripheral vascular disease) (HCC) Peripheral vascular disease, unspecified Type 2 diabetes mellitus with other specified complication, without long-term current use of insulin (HCC) 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 steroids Encounter for long-term (current) use of steroids Vitamin D deficiency Unspecified vitamin D deficiency [facility]* Diagnosis Onset Date Resolution Status Renal mass acute Calculous cholecystitis with obstruction resolved Choledocholithiasis resolved Cholecystostomy care acute Renal mass [facility] Work Phone: evaluation note* Diagnosis Onset Date Resolution Status Renal mass acute Calculous cholecystitis with obstruction resolved Choledocholithiasis resolved Cholecystostomy care acute Renal mass acute Cholecystostomy care [facility] Work Phone: evaluation note* Diagnosis Screening for genitourinary condition- Primary Screening for other and unspecified genitourinary condition Gross hematuria Left renal mass Unspecified disorder of kidney and ureter [facility]* Diagnosis Gross hematuria documented in this encounter [facility] note* Diagnosis Gross hematuria- Primary Screening for genitourinary condition Screening for other and unspecified genitourinary condition [facility]* Diagnosis Gross hematuria- Primary [facility] Diagnosis Gross hematuria- Primary Left renal mass Unspecified disorder of kidney and ureter [facility] availableM[facility] Work Phone: Hospital course Narrative No data available for this section [facility] Hospital Discharge instructions* Instructions* Ammy Vicente [...] next day as directed. documented in this [facility] Work Phone: Hospital Discharge instructions No data available for this section [facility] Progress note No data available for this section [facility] Reason for referral (narrative)No reason for referral [facility] Work Phone: Summary Purpose Family History No [...] Documents on File Type Date Recorded Patient Calibration Specialist Expl anation Advance Directive(s) 12/09/2019 8:26 AM Advance Directive(s) 08/22/2019 2:27 PM Advance Directive(s) 08/21/2019 4:25 PM Advance Directive Response Recorded Date/ Time Name of Medical Power of System Architect Angelic Robertamelia December 14, 2022 3:40am Living Will Yes December 14, 2022 3:40am Power of System Architect Yes December 14 3:40am Advance Directive Response Recorded Date/ Time Living Will Yes January 11, 2024 7:47am Do you have a Healthcare Power of System Architect? Yes January 11, 2024 7:47am Advance Directive Response Recorded Date/ Time Do you have a Healthcare Power of System Architect? Yes October 15, 2024 5:49pm Name of Medical Power of System Architect angelic durán October 15, 2024 5:49pm Hospital Course Note HNO ID: [id number] Author: Emily Prescott DO Service: General Surgery [...] (more content not included)... Note HNO ID: [id number] Author: Teo Duran DO Service: General Surgery [...] W/WO CONTRST 1+ BODY Nikolai Fisher PA-C [address] [place] [address] [facility] [place] [address] Referral ID Status Reason Start Date Expiration Date Visits Requested Visits Authorized [id number] Authorized Auto-Generat ed Referral 06/25/2024 07/18/2025 1 1 Specialty Diagnoses / Procedures Referred By Barb durán Referred To Contact Ophthalmology Diagnoses [facility] changes Photosensitivity Procedures CONSULT TO OPHTHALMOLOGY OFFICE/OUTPATIENT [facility] 60-74 MINUTES Shana Ga MD [address] [place] [address] Referral ID Status Reason Start Date Expiration Date Visits Requested Visits Authorized [id number] Authorized PCP Requested Referral 09/01/2022 09/01/2023 1 [...] WANTED SOONER THAN SANCHO SO DIDN'T WANT OUTBOARD MOTOR MECHANIC October 16, 2024 7:59am LABWORK October 23, 2024 5:00am Reason for Visit Admit Date Fecal incontinence September 06, 2024 1:3 8pm S/P ERCP September 06, 2024 1:3 8pm Atherosclerotic heart diseas e of [place] coronary artery without angina pectoris October 16, [...] WANTED SOONER THAN DECEMBER SO DIDN'T WANT OUTBOARD MOTOR MECHANIC October 16, 2024 7:59am LABWORK October 23, [...] WANTED SOONER THAN DECEMBER SO DIDN'T WANT OUTBOARD MOTOR MECHANIC October 16, 2024 7:59am LABWORK October 23, 2024 5:00am JAIL LAB WORK November 07, 2024 5:0 0am LABWORK November 20, 2024 5:00a m Chief Complaint Admit Date LABWORK September 18, 2024 5:00 am Monthly Exam September 24, 2024 3:41 pm New Concern October 01, 2024 3:2 5pm fall October 15, 2024 3:5 7pm FU NH WANTED SOONER THAN DECEMBER SO DIDN'T WANT OUTBOARD MOTOR MECHANIC October 16, 2024 7:59am LABWORK October 23, 2024 5:00am JAIL LAB WORK November 07, 2024 5:0 0am LABWORK November 20, 2024 5:00a m MONTHLY EXAM December 03, 2024 3:30 pm LABWOKR December 18, 2024 5:00a m Reason for Visit Admit Date Atherosclerotic heart diseas e of [place] coronary artery without angina pectoris October 16, 2024 7:59am Essential hypertension October 16, 2024 7:59am Hyperlipidemia October 16, 2024 7:5 9am Paroxysmal atrial fibrillation September 7:59am Chief Complaint Admit Date fall October 15, 2024 3:5 7pm FU OK WANTED SOONER THAN DECEMBER SO DIDN'T WANT OUTBOARD MOTOR MECHANIC October 16, 2024 7:59am LABWORK October 23, [...] DATE CREATED AUTHOR AUTHOR'S ORGANIZ ATION 05/21/2020 [facility] DATE CREATED AUTHOR AUTHOR'S ORGANIZ ATION 02/11/2021 [facility] DATE CREATED AUTHOR AUTHOR'S ORGANIZ ATION 08/05/2021 [facility] DATE CREATED AUTHOR AUTHOR'S ORGANIZ ATION 09/07/2021 [facility] DATE CREATED AUTHOR AUTHOR'S ORGANIZ ATION 04/15/2023 [facility] DATE CREATED AUTHOR AUTHOR'S ORGANIZ ATION 01/11/2024 [facility] ([place] DATE CREATED AUTHOR AUTHOR'S ORGANIZ ATION 10/06/2024 [facility] DATE CREATED AUTHOR AUTHOR'S ORGANIZ ATION 01/15/2025 [facility] DATE CREATED AUTHOR AUTHOR'S ORGANIZ ATION 01/21/2025 [facility] DATE CREATED AUTHOR AUTHOR'S ORGANIZ ATION 04/27/2025 [facility] Scheduled Active and Recently Administ ered Medications [...] or prosecute any alcohol or drug abuse patient.[facility] Center[facility] the event this information is protected by the Federal Confidentiality of Alcohol and Drug Abuse Patient Records regulations: The Federal rules restrict any use of the information to criminally investigate or prosecute any alcohol or drug abuse patient.[facility] Center[facility] the event this information is protected by the Federal Confidentiality of Alcohol and Drug Abuse Patient Records regulations: The Federal rules restrict any use of the information to criminally investigate or prosecute any alcohol or drug abuse patient.[facility] Center[facility] the event this information is protected by the Federal Confidentiality of Alcohol and Drug Abuse Patient Records regulations: The Federal rules restrict any use of the information to criminally investigate or prosecute any alcohol or drug abuse patient.[facility] Center[facility] the event this information is protected by the Federal Confidentiality of Alcohol and Drug Abuse Patient Records regulations: The Federal rules restrict any use of the information to criminally investigate or prosecute any alcohol or drug abuse patient.[facility] CenterIn the event this information is protected by the Federal Confidentiality of Alcohol and Drug Abuse Patient Records regulations: The Federal rules restrict any use of the information to criminally investigate or prosecute any alcohol or drug abuse patient.[facility] CenterIn the event this information is protected by the Federal Confidentiality of Alcohol and Drug Abuse Patient Records regulations: The Federal rules restrict any use of the information to criminally investigate or prosecute any alcohol or drug abuse patient.[facility] CenterIn the event this information is protected by the Federal Confidentiality of Alcohol and Drug Abuse Patient Records regulations: The Federal rules restrict any use of the information to criminally investigate or prosecute any alcohol or drug abuse patient.[facility] CenterIn the event this information is protected by the Federal Confidentiality of Alcohol and Drug Abuse Patient Records regulations: The Federal rules restrict any use of the information to criminally investigate or prosecute any alcohol or drug abuse patient.[facility] CenterIn the event this information is protected by the Federal Confidentiality of Alcohol and Drug Abuse Patient Records regulations: The Federal rules restrict any use of the information to criminally investigate or prosecute any alcohol or drug abuse patient.[facility] CenterIn the event this information is protected by the Federal Confidentiality of Alcohol and Drug Abuse Patient Records regulations: The Federal rules restrict any use of the information to criminally investigate or prosecute any alcohol or drug abuse patient.[facility] CenterIn the event this information is protected by the Federal Confidentiality of Alcohol and Drug Abuse Patient Records regulations: The Federal rules restrict any use of the information to criminally investigate or prosecute any alcohol or drug abuse patient.[facility] CenterIn the event this information is protected by the Federal Confidentiality of Alcohol and Drug Abuse Patient Records regulations: The Federal rules restrict any use of the information to criminally investigate or prosecute any alcohol or drug abuse patient.[facility] CenterIn the event this information is protected by the Federal Confidentiality of Alcohol and Drug Abuse Patient Records regulations: The Federal rules restrict any use of the information to criminally investigate or prosecute any alcohol or drug abuse patient.[facility] Care Teams (unrecognized sec tion [...] End: September 03, 2024 Christina Whipple NP COLD MOLDING PRESS OPERATOR-C Attending Provider Active Start: September 03, 2024 End: September 03, 2024 Team Status: Inactive Member Role Status Dates Dr. Diana Salmeron MD Primary Care Provider Active Start: September 05, 2024 End: September 05, 2024 Christina Whipple NP COLD MOLDING PRESS OPERATOR-C Attending Provider Active Start: September 05, [...] 2024 End: June 17, 2024 Christina Tickton COLD MOLDING PRESS OPERATOR, COLD MOLDING PRESS OPERATOR-C Attending Provider Active Start: June 17, [...] End: July 05, 2024 Christina Whipple NP COLD MOLDING PRESS OPERATOR-C Attending Provider Active Start: July 05, 2024 End: July 05, 2024 Gill Box Tender Relationship Specialty Start Date End Date Dexter Reyes Chi [address] [id number] PCP - General Gerontology 12/06/19 Ryan Rodrigues MD [address] [place] [address] Infectious Diseases 12/06/19 Yadi White, [address] [id number] Urology 04/28/20 Gill Box Tender Relationship Specialty Start Date End Date Diana Salmeron MD [address] [place] [address] PCP - General Internal Medicine 09/01/22 Ryan Rodrigues MD [address] [place] [address] Infectious Diseases 12/06/19 Demetris White, [address] [address] Urology 04/28/20 Isac Lucas [address] [place], [place] [address] Referring Ophthalmology 06/27/22 Gill Box Tender Relationship Specialty Start Date End Date Diana Salmeron MD [address] [place] [address] PCP - General Internal Medicine 09/01/22 Ryan Rodrigues MD [address] [place] [address] Infectious Diseases 12/06/19 Christopher, Rubenyram, DO [address] [place] [address] Urology 04/28/20 Isac Lucas [address] [place] [address] Referring Ophthalmology 06/27/22 Gill Box Tender Relationship Specialty Start Date End Date Diana Salmeron MD [address] [place] [address] PCP - General Internal Medicine 09/01/22 Ryan Rodrigues MD [address] [place] [address] Infectious Diseases 12/06/19 Christopher, Rubenyram, DO [address] [facility] [place] [address] Urology 04/28/20 Isac Lucas [address] [place] [address] Referring Ophthalmology 06/27/22 Team Status: Active Member [...] MD Attending Provider, Referring P katerina Active Gill Box Tender Relationship Specialty Start Date End Date Diana Salmeron MD [address] [place] [address] PCP - General Internal Medicine 09/01/22 Ryan Rodrigues MD [address] [place] [address] Infectious Diseases 12/06/19 Yadi White DO [address] [place] [address] Urology 04/28/20 Isac Lucas [facility] [place] [address] Referring Ophthalmology 06/27/22 Gill Box Tender Relationship Specialty Start Date End Date Diana Salmeron MD [address] [place] [address] PCP - General Internal Medicine 09/01/22 Ryan Rodrigues MD [address] [place] [address] Infectious Diseases 12/06/19 Yadi White DO [address] [place] [address] Urology 04/28/20 Isac Lucas [address] [place] [address] Referring Ophthalmology 06/27/22 Gill Box Tender Relationship Specialty Start Date End Date Diana Salmeron MD [address] [address] [place], [place] [address] PCP - General Internal Medicine 09/01/22 Ryan Rodrigues MD [address] [place] [address] Infectious Diseases 12/06/19 Yadi White DO [address] [place] [address] Urology 04/28/20 Isac Lucas [address] [place], [place] [address] Referring Ophthalmology 06/27/22 Gill Box Tender Relationship Specialty Start Date End Date Diana Salmeron MD [address] [place], [place] [address] PCP - General Internal Medicine 09/01/22 Ryan Rodrigues MD [address] [place] [address] Infectious Diseases 12/06/19 Yadi White DO [address] [place] [address] Urology 04/28/20 Isac Lucas [address] [place] [address] Referring Ophthalmology 06/27/22 Gill Box Tender Relationship Specialty Start Date End Date Diana Salmeron MD [address] [place] [address] PCP - General Internal Medicine 09/01/22 Ryan Rodrigues MD [address] [place] [address] Infectious Diseases 12/06/19 Yadi White DO [address] [place] [id number] Urology 04/28/20 Isac Lucas [address] [place] [address] Referring Ophthalmology 06/27/22 Team Status: Inactive Member [...] Attending Provider Active Start: September 18, 2024 Gill Box Tender Relationship Specialty Start Date End Date Diana Salmeron MD [address] [place] [address] PCP - General Internal Medicine 09/01/22 Ryan Rodrigues MD [address] [place] [address] Infectious Diseases 12/06/19 Yadi White DO [address] [place] [address] Urology 04/28/20 Isac Lucas [address] [place], [place] [address] Referring Ophthalmology 06/27/22 Gill Box Tender Relationship Specialty Start Date End Date Diana Salmeron MD [address] [id number] PCP - General Internal Medicine 09/01/22 Ryan Rodrigues MD [address] [facility] [place] [address] Infectious Diseases 12/06/19 Yadi White DO [address] [place] [address] Urology 04/28/20 Isac Lucas [address] [place] [address] Referring Ophthalmology 06/27/22 Team Status: Inactive Member [...] 2024 End: October 01, 2024 Christina Whipple COLD MOLDING PRESS OPERATOR, COLD MOLDING PRESS OPERATOR-C Attending Provider Active Start: October 01, [...] 2024 End: September 03, 2024 Christina Whipple COLD MOLDING PRESS OPERATOR, COLD MOLDING PRESS OPERATOR-C Attending Provider Active Start: September 03, 2024 End: September 03, 2024 Team Status: Inactive Member Role/Relationship Status Dates Dr. Diana Salmeron MD Primary Care Provider Active Start: September 05, 2024 End: September 05, 2024 Christina Whipple COLD MOLDING PRESS OPERATOR, COLD MOLDING PRESS OPERATOR-C Attending Provider Active Start: September 05, [...] End: October 01, 2024 Christina Whipple NP, COLD MOLDING PRESS OPERATOR-C Attending Provider Active Start: October 01, [...] Attending Provider Active Start: December 18, 2024 Gill Box Tender Relationship Specialty Start Date End Date Diana Salmeron MD [address] [address] PCP - General Internal Medicine 09/01/22 Ryan Rodrigues MD [address] [place] [address] Infectious Diseases 12/06/19 Yadi White DO [address] [place] [address] Urology 04/28/20 Isac Lucas [address] [place], [place] [address] Referring Ophthalmology 06/27/22 Team Status: Inactive Member [...] End: December 24, 2024 Christina Whipple NP COLD MOLDING PRESS OPERATOR-C Attending Provider Active Start: December 24, [...] End: December 24, 2024 Christina Whipple NP COLD MOLDING PRESS OPERATOR-C Attending Provider Active Start: December 24, [...] Member Role: Primary Care Physician Address: Address: [address] [place] [address] [address] Care Team Related Persons Name: ANGELIC [...] BODY Nikolai Fisher PA-C [address] [place] [id number] [place] [address] Referral ID Status Reason Start Date Expiration Date V isits Requested Visits Authorized [id number] Closed Auto-Generate d Referral 06/25/2024 07/18/2025 1 [...] BE BASED ON THE PRIMARY CLINICAL RECORDS. [employer] provides no warranty or guarantee of the accuracy or completeness of information in this document.
[2025-05-26 08:21] LABS: Hematocrit 41.4 % (40-54); Hemoglobin 13.2 g/dL (13.0-16.5); Mean Corp Hgb Conc 31.9 g/dL (32-36); Mean Corpuscular Volume 88.7 fL (80-94); Mean Platelet Vol. 11.2 fl (6.2-12.0); Platelet Count 232 K/mm3 (150-450); RBC Distribution Width CV 14.7 % (11.6-14.6); RBC Distribution Width SD 47.3 fl (35.1-43.9); Red Blood Count 4.67 M/mm3 (4.6-6.2); White Blood Count 7.8 K/mm3 (4.4-11.0)
[2025-05-26 08:42] LABS: PTHIN 82 pg/mL (11-61)
[2025-05-26 09:10] LABS: Albumin, Serum 3.3 g/dL (3.4-4.8); Anion Gap 13 (5-15); BUN 24 mg/dL (4-19); BUN/Creat Ratio 16.0 RATIO (10-20); Calcium,Total 8.3 mg/dL (7.6-11.0); Carbon Dioxide 20.0 mmol/L (21.0-32.0); Chloride 105 mmol/L (98-108); Glucose 70 mg/dL (70-99); Potassium 4.5 mmol/L (3.3-5.1)
== END ==
LOC: OLS.WHLEAS 04:00
PROVIDERS: PCP Internal Medicine; Referring Provider Internal Medicine; Visit Provider Internal Medicine
DX: E11.22 Type 2 diabetes mellitus with diabetic chronic kidney disease (principal); N18.32 Chronic kidney disease, stage 3b; E11.40 Type 2 diabetes mellitus with diabetic neuropathy, unspecified; J96.11 Chronic respiratory failure with hypoxia; F03.90 Unspecified dementia, unspecified severity, without behavioral disturbance, psychotic disturbance, mood disturbance, and anxiety
CPT/HCPCS: 36415; 80069; 83970; 85027

== ENCOUNTER → 2025-05-29 23:30 | Outpatient (REF) | payer MEDICARE, MEDICAID, SELFPAY ==
[2025-05-30 08:53] LABS: Color, Urine Yellow (Yellow); Glucose, Dipstick 50 mg/dl (Normal); Ketone-Dipstick Negative (Negative); Leukocyte Esterase-Dipstick 25 /ul (Negative); Nitrite-Dipstick Negative (Negative); Occult Blood-Urine 250 /ul (Negative); Protein-Dipstick 100 mg/dl (Negative); Specific Gravity, Urine 1.020 (1.002-1.030); Urine Bilirubin Dipstick Negative (Negative)
== END ==
LOC: OLS.WHLEAS 23:30
PROVIDERS: PCP Internal Medicine; Visit Provider Internal Medicine
DX: E11.22 Type 2 diabetes mellitus with diabetic chronic kidney disease (principal); N18.9 Chronic kidney disease, unspecified; E11.40 Type 2 diabetes mellitus with diabetic neuropathy, unspecified; J96.11 Chronic respiratory failure with hypoxia; F03.90 Unspecified dementia, unspecified severity, without behavioral disturbance, psychotic disturbance, mood disturbance, and anxiety
CPT/HCPCS: 81002; 87077; 87086; 87088; 87186

== ENCOUNTER → 2025-06-06 05:00 | Outpatient (REF) | payer MEDICARE, MEDICAID, SELFPAY ==
--- OUTSIDE RECORDS SUMMARY | 2025-06-06 04:42 | XMS RPT_ITS | CCD ---
Author Organization [facility] Care Team Providers [facility] Programmer Name Role Phone Eric LATHAM, Papa Primary [...] DR DIANA SALMERON MD Primary Care Physician [phone] Ryan Rodrigues MD Unavailable Ruben White DOyrgracia Unavailable [phone] Isac Lucas Unavailable Diana Salmeron MD Primary Care Provider Dr. Dexter Reyes Chi Primary Care Provider [phone] Dr. Bren Lopes Admit Provider Dr. Bren Lopes Other Provider Dr. Dwayne Palmubo Other Provider [phone] Jesse Haywood Attending Provider Dr. Jesse Haywood Other Provider Dr. Dwayne Palumbo Attending Provider [phone] Friend, Dr. Sauceda Attending Provider Dr. Jesse [...] Rojas MD Attending Provider Unavaila ble [place]ickton SPRING COVERER-C, Christina Attending Provider Dr. Victor M Rojas [...] Rojas MD Attending Provider Unavaila ble [place] SPRING COVERER-C, Christina Attending Provider Dr. Jesse Angel DO Emergency Provider Dr. Diana Salmeron MD Primary Care Provider Victor M Rojas MD Attending Provider Unavaila ble Sole SPRING COVERER-C, Christina Attending Provider Dr. Jesse Angel DO Attending Provider Foster GARLAND, Lauren Bryan Attending Provider Sole SPRING COVERER-C, Christina Attending Provider Dr. Diana Salmeron MD Primary Care Provider [phone] Victor M Rojas MD Attending Provider UnavailDr. Victor M Meneses MD Attending Provider Dr. Diana Salmeron MD Primary Care Provider Victor M Rojas MD Attending Provider Unavaila ble Sole SPRING COVERER-C, Christina Attending Provider Dr. Diana Salmeron MD [...] Victor M Meneses MD Attending Provider Sole SPRING COVERER-CChristina Attending Provider Dr. Diana Salmeron MD Primary [...] Unavailable Latouf, Butros Primary Care Unavailable Sole SPRING COVERER, Christina Attending Unavailable Latouf, Butros Primary Care Unavailable Kacie Simon Attending Unavailable Latouf, Butros Referring Unavailable Latouf, Butros Primary Care Unavailable Oleghe, Efewongbe Attending Unavailable Oleghe, Efewongbe Attending Unavailable Latouf, Butros Primary Care Unavailable Sole SPRING COVERER, Christina Attending Unavailable Latouf, Butros Primary Care [...] Unavailable Latouf, Butros Primary Care Unavailable Sole SPRING COVERER, Christina Attending Unavailable Sole SPRING COVERER, Christina Attending Unavailable Latouf, Butros Primary Care [...] MG DAILY@0800 Sunitha 25th, 2020 7:37am 10-12-2019 [facility] ([id number]) 0 10/12/2019 Active Comment on above: Aspirin Aspirin E.C. Active 81 MG DAILY@0800 October 12, 2019 7:37am 10-12-2019 [facility] ([id number]) Take 81 mg by mouth. atorvastatin 40 [...] Start: 08-19-2019 take 2 tablets by mo [facility] once daily levothyroxine (SYNTHROID) 25 mcg [...] (BACTROBAN) 2 % ointment 01/14/2023 Active nystatin 494573 unt/ml topical cream (10 sources) Polyene Antifungal [...] October 12, 2019 7:45am polyethylene glycol 3350 75723 mg powder for oral solution (20 sources) [...] pen injector 3 mg. 01/13/2025 Active vit C,P-Qa-jodfi-lutein-zeax an (PRESERVISION AREDS-2) 250-90-40-1 mg (12 sources) Start: 12-09-2020 vit C,E-Zn-copywriting intern ti-kkctog-xbpeyt (PRESERVISION AREDS-2) 250-90-40-1 mg Take 1 Each by mouth. 12/09/2020 Active Start: 12-09-2020 vit C,E-Zn-copywriting intern zd-rqdosz-ycslzz (PRESERVISION AREDS-2) 250-90-40-1 mg Take 1 Each [...] Start: 05-18-2020 take 1000 [IU] by mo [facility] once daily Cholecalciferol (Vitamin D3) Active [...] DAILY docusate sodium 50 mg / sennosides, residential 8.6 mg oral tablet (1 source) take [...] 7:40am nerve pain take 1 capsule by [facility] once daily for pain gabapentin (NEURONTIN) 100 [...] Coronary atherosclerosis; Translations: [Atherosclerotic heart disease of [place] coronary artery without angina pectoris] Onset: 12-31-2021 [...] Long-term current use of systemic steroid; Translations: [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] Episodic Other aftercare (5 sources) Drug therapy finding; Translations: [Other halfway (current) drug therapy] 12-25-2022 Episodic Other aftercare (7 sources) Long-term current use of amiodarone; Translations: [Other parts counterman (current) drug therapy] 05-16-2022 Episodic Other aftercare (1 source) Other parts counterman (current) drug therapy; Translations: [Other halfway (current) drug therapy] Onset: 04-17-2025 Episodic Other [...] Other nervous system disorders (1 source) H/O: BLOCKER AND SEWER disorder; Translations: [Personal history of other diseases [...] Facility Cardiology Visit Reporton Cardiology Visit Report [facility] 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 He currently resides at [facility]. He reports feeling well overall, [...] air Intake Visit Reasons: 6 M FU Wildlife Removal Specialist Required: No Accompanied by: Caregiver Is patient [...] pulmonary disease) Obesity Atherosclerotic heart disease of [place] coronary artery without angina pectoris Paroxysmal atrial [...] H/O endart (more content not included)... Normal [facility] Anion gap in Serum or Plasma Ordered By: Victor M Rojas on 02-11-2025 Anion gap [Moles/Vol] 12 mmol/L 5-15 [facility] BUN/creatinine ratioOrdered By: Victor M Rojas on 02-11-2025 Urea nitrogen/Creatinine [Mass ratio] 21.9 mg/mg High 10-20 [facility] Carbon dioxide, total [Moles /volume] in Central venous bloodOrdered By: Victor M Rojas on 02-11-2025 CO2 [Moles/Vol] 19.2 mmol/L Low 21.0-32.0 [facility] Chloride assayOrdered By: Stefan Rojas on 02-11-2025 Chloride [Moles/Vol] 108 mmol/L 98-108 [facility] Glomerular filtration rate ( GFR) estimation/1.73 sq m using serum, plasma, or whole bOrdered By: Victor M Rojas on 02-11-2025 GFR/1.73 sq M.predicted among non-blacks MDRD (S/P/Bld) [Vol rate/Area] 46 mL/min/{1.73_m2} Low >60 [facility] Comment on above: mL/min/1.73m2 CKD-EP I Creatinine Equation (2020) Potassium measurement (mass/ volume)Ordered By: Victor M Rojas on 02-11-2025 Potassium (Unsp spec) [Mass/Vol] 4.5 mmol/L 3.3-5.1 [facility] Serum creatinine measurement (mass/volume)Ordered By: Victor M Rojas on 02-11-2025 Creatinine [Mass/Vol] 1.51 mg/dL High 0.70-1.20 [facility] Serum glucose measurement (m ass/volume)Ordered By: Victor M Rojas on 02-11-2025 Glucose [Mass/Vol] 148 mg/dL High 70-99 [facility] Serum or plasma albumin akash urement (mass/volume)Ordered By: Victor M Rojas on 02-11-2025 Albumin [Mass/Vol] 3.3 g/dL Low 3.4-4.8 [facility] Serum or plasma calcium akash urement (mass/volume)Ordered By: Victor M Rojas on 02-11-2025 Calcium [Mass/Vol] 8.2 mg/dL 7.6-11.0 [facility] Serum or plasma urea nitroge n measurement (mass/volume)Ordered By: Victor M Rojas on 02-11-2025 Urea nitrogen [Mass/Vol] 33 mg/dL High 4-19 [facility] Sodium levelOrdered By: Brandon Rojas on 02-11-2025 Sodium [Moles/Vol] 139 mmol/L 133-145 [facility] Anion gap in Serum or Plasma Ordered By: Victor M Rojas on 02-04-2025 Anion gap [Moles/Vol] 13 mmol/L 5-15 [facility] BUN/creatinine ratioOrdered By: Victor M Rojas on 02-04-2025 Urea nitrogen/Creatinine [Mass ratio] 15.7 mg/mg 10-20 [facility] Carbon dioxide, total [Moles /volume] in Central venous bloodOrdered By: Victor M Rojas on 02-04-2025 CO2 [Moles/Vol] 19.7 mmol/L Low 21.0-32.0 [facility] Chloride assayOrdered By: Stefan Rojas on 02-04-2025 Chloride [Moles/Vol] 106 mmol/L 98-108 [facility] Glomerular filtration rate ( GFR) estimation/1.73 sq m using serum, plasma, or whole bOrdered By: Victor M Rojas on 02-04-2025 GFR/1.73 sq M.predicted among non-blacks MDRD (S/P/Bld) [Vol rate/Area] 41 mL/min/{1.73_m2} Low >60 [facility] Comment on above: mL/min/1.73m2 CKD-EP I Creatinine Equation (2020) Potassium measurement (mass/ volume)Ordered By: Victor M Rojas on 02-04-2025 Potassium (Unsp spec) [Mass/Vol] 4.2 mmol/L 3.3-5.1 [facility] Serum creatinine measurement (mass/volume)Ordered By: Victor M Rojas on 02-04-2025 Creatinine [Mass/Vol] 1.64 mg/dL High 0.70-1.20 [facility] Serum glucose measurement (m ass/volume)Ordered By: Victor M Rojas on 02-04-2025 Glucose [Mass/Vol] 76 mg/dL 70-99 [facility] Serum or plasma albumin akash urement (mass/volume)Ordered By: Victor M Rojas on 02-04-2025 Albumin [Mass/Vol] 3.4 g/dL 3.4-4.8 [facility] Serum or plasma calcium akash urement (mass/volume)Ordered By: Victor M Rojas on 02-04-2025 Calcium [Mass/Vol] 8.4 mg/dL 7.6-11.0 [facility] Serum or plasma urea nitroge n measurement (mass/volume)Ordered By: Victor M Rojas on 02-04-2025 Urea nitrogen [Mass/Vol] 26 mg/dL High 4-19 [facility] Sodium levelOrdered By: Brandon Rojas on 02-04-2025 Sodium [Moles/Vol] 139 mmol/L 133-145 [facility] Anion gap in Serum or Plasma Ordered By: Victor M Rojas on 01-28-2025 Anion gap [Moles/Vol] 12 mmol/L 5-15 [facility] BUN/creatinine ratioOrdered By: Victor M Rojas on 01-28-2025 Urea nitrogen/Creatinine [Mass ratio] 15.7 mg/mg 10-20 [facility] Carbon dioxide, total [Moles /volume] in Central venous bloodOrdered By: Victor M Rojas on 01-28-2025 CO2 [Moles/Vol] 19.7 mmol/L Low 21.0-32.0 [facility] Chloride assayOrdered By: Stefan Rojas on 01-28-2025 Chloride [Moles/Vol] 106 mmol/L 98-108 [facility] Glomerular filtration rate ( GFR) estimation/1.73 sq m using serum, plasma, or whole bOrdered By: Victor M Rojas on 01-28-2025 GFR/1.73 sq M.predicted among non-blacks MDRD (S/P/Bld) [Vol rate/Area] 38 mL/min/{1.73_m2} Low >60 [facility] Comment on above: mL/min/1.73m2 CKD-EP I Creatinine Equation (2020) Potassium measurement (mass/ volume)Ordered By: Victor M Rojas on 01-28-2025 Potassium (Unsp spec) [Mass/Vol] 4.1 mmol/L 3.3-5.1 [facility] Serum creatinine measurement (mass/volume)Ordered By: Victor M Rojas on 01-28-2025 Creatinine [Mass/Vol] 1.74 mg/dL High 0.70-1.20 [facility] Serum glucose measurement (m ass/volume)Ordered By: Victor M Rojas on 01-28-2025 Glucose [Mass/Vol] 137 mg/dL High 70-99 [facility] Serum or plasma albumin akash urement (mass/volume)Ordered By: Victor M Rojas on 01-28-2025 Albumin [Mass/Vol] 3.2 g/dL Low 3.4-4.8 [facility] Serum or plasma calcium akash urement (mass/volume)Ordered By: Victor M Rojas on 01-28-2025 Calcium [Mass/Vol] 8.1 mg/dL 7.6-11.0 [facility] Serum or plasma urea nitroge n measurement (mass/volume)Ordered By: Victor M Rojas on 01-28-2025 Urea nitrogen [Mass/Vol] 27 mg/dL High 4-19 [facility] Sodium levelOrdered By: Brandon Rojas on 01-28-2025 Sodium [Moles/Vol] 138 mmol/L 133-145 [facility] Anion gap in Serum or Plasma Ordered By: Victor M Rojas on 01-22-2025 Anion gap [Moles/Vol] 15 mmol/L 5-15 [facility] BUN/creatinine ratioOrdered By: Victor M Rojas on 01-22-2025 Urea nitrogen/Creatinine [Mass ratio] 24.3 mg/mg High 10-20 [facility] Carbon dioxide, total [Moles /volume] in Central venous bloodOrdered By: Victor M Rojas on 01-22-2025 CO2 [Moles/Vol] 18.3 mmol/L Low 21.0-32.0 [facility] Chloride assayOrdered By: Stefan Rojas on 01-22-2025 Chloride [Moles/Vol] 103 mmol/L 98-108 [facility] Glomerular filtration rate ( GFR) estimation/1.73 sq m using serum, plasma, or whole bOrdered By: Victor M Rojas on 01-22-2025 GFR/1.73 sq M.predicted among non-blacks MDRD (S/P/Bld) [Vol rate/Area] 33 mL/min/{1.73_m2} Low >60 [facility] Comment on above: mL/min/1.73m2 CKD-EP I Creatinine Equation (2020) Potassium measurement (mass/ volume)Ordered By: Victor M Rojas on 01-22-2025 Potassium (Unsp spec) [Mass/Vol] 3.9 mmol/L 3.3-5.1 [facility] Serum creatinine measurement (mass/volume)Ordered By: Victor M Rojas on 01-22-2025 Creatinine [Mass/Vol] 1.96 mg/dL High 0.70-1.20 [facility] Serum glucose measurement (m ass/volume)Ordered By: Victor M Darwinkelly on 01-22-2025 Glucose [Mass/Vol] 83 mg/dL 70-99 [facility] Serum or plasma albumin akash urement (mass/volume)Ordered By: Victor M Granadosluiskaran on 01-22-2025 Albumin [Mass/Vol] 3.3 g/dL Low 3.4-4.8 [facility] Serum or plasma calcium akash urement (mass/volume)Ordered By: Stefanvianeyleonaprice Granadosluiskaran on 01-22-2025 Calcium [Mass/Vol] 8.2 mg/dL 7.6-11.0 [facility] Serum or plasma urea nitroge n measurement (mass/volume)Ordered By: Victor M Granadosluiskaran on 01-22-2025 Urea nitrogen [Mass/Vol] 48 mg/dL High 4-19 [facility] Sodium levelOrdered By: Stefanvianey wynn Bob on 01-22-2025 Sodium [Moles/Vol] 136 mmol/L 133-145 [facility] Absolute lymphocyte countOrd ered By: Brandonleonaprice Granadosluiskaran on 01-20-2025 Lymphocytes Auto (Unsp spec) [#/Vol] 1.51 10*3/uL 0.83-4.51 [facility] Absolute neutrophil countOrd ered By: Victor M Granadosluiskaran on 01-20-2025 Neutrophils (Bld) [#/Vol] 6.1 10*3/uL 2.0-7.7 [facility] Anion gap in Serum or Plasma Ordered By: Milyprice Granadosluiskaran on 01-20-2025 Anion gap [Moles/Vol] 16 mmol/L High 5-15 [facility] Automated lymphocyte count a s percentage of total leukocytesOrdered By: Milyprice Granadosluiskaran on 01-20-2025 Lymphocytes/100 WBC Auto (Unsp spec) 16.5 % Low 19-41 [facility] BUN/creatinine ratioOrdered By: Victor M Granadosluiskaran on 01-20-2025 Urea nitrogen/Creatinine [Mass ratio] 16.1 mg/mg 10-20 [facility] Basophil percentageOrdered B y: Victor M Rojas on 01-20-2025 Basophils/100 WBC (Bld) 0.3 % 0-1 [facility] Carbon dioxide, total [Moles /volume] in Central venous bloodOrdered By: Victor M Rojas on 01-20-2025 CO2 [Moles/Vol] 19.5 mmol/L Low 21.0-32.0 [facility] Chloride assayOrdered By: Stefan Rojas on 01-20-2025 Chloride [Moles/Vol] 103 mmol/L 98-108 [facility] Eosinophil percentageOrdered By: Victor M Rojas on 01-20-2025 Eosinophils/100 WBC (Bld) 1.2 % 0-5 [facility] Erythrocyte distribution wid th ratioOrdered By: radha Rojas on 01-20-2025 Erythrocyte distribution width (RBC) [Ratio] 14.9 % High 11.6-14.6 [facility] Erythrocyte distribution wid th standard deviationOrdered By: Victor M Rojas on 01-20-2025 Erythrocyte distribution width (RBC) [Ratio] 47.9 fl High 35.1-43.9 [facility] Glomerular filtration rate ( GFR) estimation/1.73 sq m using serum, plasma, or whole bOrdered By: Victor M Rojas on 01-20-2025 GFR/1.73 sq M.predicted among non-blacks MDRD (S/P/Bld) [Vol rate/Area] 29 mL/min/{1.73_m2} Low >60 [facility] Comment on above: mL/min/1.73m2 CKD-EP I Creatinine Equation (2020) Hematocrit Auto (Bld) [Volum e fraction]Ordered By: Victor M Rojas on 01-20-2025 Hematocrit (Bld) [Volume fraction] 42.5 % 40-54 [facility] Hemoglobin measurementOrdere d By: Victor M Rojas on 01-20-2025 Hemoglobin (Bld) [Mass/Vol] 14.0 g/dL 13.0-16.5 [facility] Immature granulocytes/100 WB C Auto (Bld)Ordered By: Victor M Rojas on 01-20-2025 Immature granulocytes/100 WBC (Bld) 2.100 % High 0.0-0.9 [facility] Comment on above: IG% - Immature Granu locytes (promyelocytes, myelocytes and metamyelocytes) > 1% indicates that a LEFT SHIFT is Present. MCV (mean corpuscular volume ) determinationOrdered By: Victor M Rojas on 01-20-2025 MCV (RBC) [Entitic vol] 88.4 fL 80-94 [facility] Mean corpuscular hemoglobin (MCH) determinationOrdered By: radha Rojas on 01-20-2025 MCH (RBC) [Entitic mass] 29.1 pg 27.0-32.0 [facility] Mean corpuscular hemoglobin concentration (MCHC) determinationOrdered By: vianeyanchor pointprice Rojas on 01-20-2025 MCHC (RBC) [Mass/Vol] 32.9 g/dL 32-36 [facility] Mean platelet volume determi nationOrdered By: Victor M Rojas on 01-20-2025 Platelet mean volume (Bld) [Entitic vol] 11.6 fL 6.2-12.0 [facility] Monocyte percentageOrdered B y: Victor M Rojas on 01-20-2025 Monocytes/100 WBC (Bld) 13.4 % High 0-10 [facility] Neutrophil percentageOrdered By: radha Rojas on 01-20-2025 Neutrophils/100 WBC (Bld) 66.5 % 47-70 [facility] Nucleated red blood cell per centageOrdered By: Victor M Rojas on 01-20-2025 Nucleated RBC/100 WBC (Bld) [Ratio] 0 % 0-5 [facility] Platelet countOrdered By: Stefan Rojas on 01-20-2025 Platelets (Bld) [#/Vol] 218 10*3/uL 150-450 [facility] Potassium measurement (mass/ volume)Ordered By: Victor M Rojas on 01-20-2025 Potassium (Unsp spec) [Mass/Vol] 4.0 mmol/L 3.3-5.1 [facility] RBC Auto (Bld) [#/Vol]Ordere d By: Victor M Rojas on 01-20-2025 RBC (Bld) [#/Vol] 4.81 10*6/uL 4.6-6.2 [facility] Serum creatinine measurement (mass/volume)Ordered By: Victor M Rojas on 01-20-2025 Creatinine [Mass/Vol] 2.19 mg/dL High 0.70-1.20 [facility] Serum glucose measurement (m ass/volume)Ordered By: Victor M Rojas on 01-20-2025 Glucose [Mass/Vol] 211 mg/dL High 70-99 [facility] Serum or plasma albumin akash urement (mass/volume)Ordered By: Victor M Rojas on 01-20-2025 Albumin [Mass/Vol] 3.3 g/dL Low 3.4-4.8 [facility] Serum or plasma calcium akash urement (mass/volume)Ordered By: Victor M Rojas on 01-20-2025 Calcium [Mass/Vol] 8.4 mg/dL 7.6-11.0 [facility] Serum or plasma urea nitroge n measurement (mass/volume)Ordered By: Victor M Rojas on 01-20-2025 Urea nitrogen [Mass/Vol] 35 mg/dL High 4-19 [facility] Sodium levelOrdered By: Brandon perezkandis Bob on 01-20-2025 Sodium [Moles/Vol] 139 mmol/L 133-145 [facility] White blood cell (WBC) count Ordered By: Victor M Rojas on 01-20-2025 WBC (Bld) [#/Vol] 9.2 10*3/uL 4.4-11.0 [facility] CNOVon 01-14-2025 CNOV Office Visit (URALANT ) ELIZABETH MODI ([id number]) 1940 M [facility] Date Time Provider Department 01/14/25 9:15 [...] patient: Yes Procedure confirmed with physician and youth support worker: Yes UNIVERSAL PROTOCOL / SAFETY CHECKLIST Procedure [...] 1.22 mg/dL Final No results found for: PSA, PSASC GLUCOSE UA (POCT) (mg/dL) Date Value [...] be provided wit (more content not included)... [facility] Anion gap in Serum or Plasma Ordered By: Victor M Rojas on 12-18-2024 Anion gap [Moles/Vol] 14 mmol/L 5-15 [facility] BUN/creatinine ratioOrdered By: Victor M Rojas on 12-18-2024 Urea nitrogen/Creatinine [Mass ratio] 18.6 mg/mg 10-20 [facility] Bilirubin, totalOrdered By: Victor M Rojas on 12-18-2024 Bilirubin [Mass/Vol] 0.79 mg/dL 0.00-1.30 [facility] Calculated very low density lipoprotein (VLDL) cholesterol measurementOrdered By: Victor M Rojas on 12-18-2024 Calculated very low density lipoprotein (VLDL) cholesterol measurement 25 mg/dL 5-40 [facility] Carbon dioxide, total [Moles /volume] in Central venous bloodOrdered By: Victor M Rojas on 12-18-2024 CO2 [Moles/Vol] 19.2 mmol/L Low 21.0-32.0 [facility] Chloride assayOrdered By: Stefan Rojas on 12-18-2024 Chloride [Moles/Vol] 105 mmol/L 98-108 [facility] Erythrocyte distribution wid th ratioOrdered By: Victor M Rojas on 12-18-2024 Erythrocyte distribution width (RBC) [Ratio] 14.9 % High 11.6-14.6 [facility] Erythrocyte distribution wid th standard deviationOrdered By: Victor M Rojas on 12-18-2024 Erythrocyte distribution width (RBC) [Ratio] 48.5 fl High 35.1-43.9 [facility] Glomerular filtration rate ( GFR) estimation/1.73 sq m using serum, plasma, or whole bOrdered By: Victor M Rojas on 12-18-2024 GFR/1.73 sq M.predicted among non-blacks MDRD (S/P/Bld) [Vol rate/Area] 38 mL/min/{1.73_m2} Low >60 [facility] Comment on above: mL/min/1.73m2 CKD-EP I Creatinine Equation (2020) Hematocrit Auto (Bld) [Volum e fraction]Ordered By: Victor M Rojas on 12-18-2024 Hematocrit (Bld) [Volume fraction] 44.3 % 40-54 [facility] Hemoglobin A1c percentageOrd ered By: Victor M Rojas on 12-18-2024 HbA1c (Bld) [Mass fraction] 8.8 % High <5.7 [facility] Comment on above: Normal < 5.7 % Predi abetic 5.7 - 6.4 % Diabetic >or= 6.5 % Please note range changes. Hemoglobin measurementOrdere d By: Victor M Rojas on 12-18-2024 Hemoglobin (Bld) [Mass/Vol] 14.1 g/dL 13.0-16.5 [facility] LDL calc ser/plasOrdered By: Victor M Rojas on 12-18-2024 Cholesterol in LDL [Mass/Vol] 48 mg/dL [facility] Comment on above: Igukjsylhy=967-503 m g/dL & Higher Zpzl=889 mg/dL or greater Laboratory - Chemistry and C hemistry - challengeOrdered By: Victor M Rojas on 12-18-2024 AST [Catalytic activity/Vol] 27 U/L <38 [facility] MCV (mean corpuscular volume ) determinationOrdered By: Victor M Rojas on 12-18-2024 MCV (RBC) [Entitic vol] 89.1 fL 80-94 [facility] Mean corpuscular hemoglobin (MCH) determinationOrdered By: Victor M Rojas on 12-18-2024 MCH (RBC) [Entitic mass] 28.4 pg 27.0-32.0 [facility] Mean corpuscular hemoglobin concentration (MCHC) determinationOrdered By: Victor M Rojas on 12-18-2024 MCHC (RBC) [Mass/Vol] 31.8 g/dL Low 32-36 [facility] Mean platelet volume determi nationOrdered By: Victor M Rojas on 12-18-2024 Platelet mean volume (Bld) [Entitic vol] 11.5 fL 6.2-12.0 [facility] Platelet countOrdered By: Stefan Rojas on 12-18-2024 Platelets (Bld) [#/Vol] 218 10*3/uL 150-450 [facility] Potassium measurement (mass/ volume)Ordered By: Victor M Rojas on 12-18-2024 Potassium (Unsp spec) [Mass/Vol] 4.3 mmol/L 3.3-5.1 [facility] RBC Auto (Bld) [#/Vol]Ordere d By: Victor M Rojas on 12-18-2024 RBC (Bld) [#/Vol] 4.97 10*6/uL 4.6-6.2 [facility] Screening total cholesterol/ high density lipoprotein (HDL) cholesterol ratioOrdered By: Victor M Rojas on 12-18-2024 Cholesterol.total/Cholest giuliana in HDL [Mass ratio] 4.53 {ratio} [facility] Serum creatinine measurement (mass/volume)Ordered By: Victor M Rojas on 12-18-2024 Creatinine [Mass/Vol] 1.74 mg/dL High 0.70-1.20 [facility] Serum globulin measurementOr dered By: Victor M Rojas on 12-18-2024 Globulin (S) [Mass/Vol] 3.5 g/dL 2.2-4.2 [facility] Serum glucose measurement (m ass/volume)Ordered By: Victor M Rojas on 12-18-2024 Glucose [Mass/Vol] 82 mg/dL 70-99 [facility] Serum or plasma alanine mojica otransferase (ALT) measurementOrdered By: Victor M Rojas on 12-18-2024 ALT [Catalytic activity/Vol] 20 U/L <47 [facility] Serum or plasma albumin akash urement (mass/volume)Ordered By: Victor M Rojas on 12-18-2024 Albumin [Mass/Vol] 3.3 g/dL Low 3.4-4.8 [facility] Serum or plasma albumin/glob ulin mass ratioOrdered By: Stefantianna Granadoskaran on 12-18-2024 Albumin/Globulin [Mass ratio] 1.0 {ratio} 0.9-2.4 [facility] Serum or plasma alkaline marielos sphatase measurementOrdered By: Victor M Rojas on 12-18-2024 ALP [Catalytic activity/Vol] 117 U/L 40-129 [facility] Serum or plasma calcium akash urement (mass/volume)Ordered By: Victor M Rojas 12-18-2024 Calcium [Mass/Vol] 8.8 mg/dL 7.6-11.0 [facility] Serum or plasma cholesterol in HDL measurement (mass/volume)Ordered By: Victor M Rojas on 12-18-2024 Cholesterol in HDL [Mass/Vol] 21 mg/dL Low >40 [facility] Comment on above: National Cholesterol Education Program (NCEP) guidelines:<40 mg/dL: Low HDL-cholesterol (major risk factor for CHD)>= 60 mg/dL: High HDL-cholesterol (negative risk factor for CHD)HDL-cholesterol is affected by a number of factors, e.g. smoking, exercise, hormones, sex and age. Serum or plasma cholesterol measurement (mass/volume)Ordered By: Victor M Rojas on 12-18-2024 Cholesterol [Mass/Vol] 94 mg/dL <201 [facility] Comment on above: Cholesterol level, D esirable <200 mg/dLBorderline high cholesterol 200-239 mg/dLHigh cholesterol >=240 mg/dLRecommendations of the NCEP Adult Treatment Panel for the following risk-cutoff thresholds for the [place] population. Serum or plasma urea nitroge n measurement (mass/volume)Ordered By: Victor M Rojas on 12-18-2024 Urea nitrogen [Mass/Vol] 32 mg/dL High 4-19 [facility] Sodium levelOrdered By: Brandon perezkandis Bob on 12-18-2024 Sodium [Moles/Vol] 138 mmol/L 133-145 [facility] TSH DL <= 0.005 mIU/L QnOrde red By: Victor M Rojas on 12-18-2024 TSH Qn 1.380 uIU/mL 0.300-4.200 [facility] Total proteinOrdered By: Prosper lonnieprice Rojas on 12-18-2024 Protein [Mass/Vol] 6.8 g/dL 5.9-8.4 [facility] Triglycerides measurementOrd ered By: Victor M Rojas on 12-18-2024 Triglyceride [Mass/Vol] 125 mg/dL <199 [facility] Comment on above: The drugs N-Acetylcy steine and Metamizole may falsely depress this assay. Normal range: <150 mg/dLBorderline High: 150-199 mg/dLHigh: 200-499 mg/dLVery High: >500 mg/dL White blood cell (WBC) count Ordered By: Victor M Rojas on 12-18-2024 WBC (Bld) [#/Vol] 7.7 10*3/uL 4.4-11.0 [facility] Anion gap in Serum or Plasma Ordered By: Victor M Rojas on 11-20-2024 Anion gap [Moles/Vol] 13 mmol/L 5-15 [facility] BUN/creatinine ratioOrdered By: Victor M Rojas on 11-20-2024 Urea nitrogen/Creatinine [Mass ratio] 16.5 mg/mg 10-20 [facility] Carbon dioxide, total [Moles /volume] in Central venous bloodOrdered By: Victor M Rojas on 11-20-2024 CO2 [Moles/Vol] 20.9 mmol/L Low 21.0-32.0 [facility] Chloride assayOrdered By: Stefan Rojas on 11-20-2024 Chloride [Moles/Vol] 104 mmol/L 98-108 [facility] Glomerular filtration rate ( GFR) estimation/1.73 sq m using serum, plasma, or whole bOrdered By: Victor M Rojas on 11-20-2024 GFR/1.73 sq M.predicted among non-blacks MDRD (S/P/Bld) [Vol rate/Area] 38 mL/min/{1.73_m2} Low >60 [facility] Comment on above: mL/min/1.73m2 CKD-EP I Creatinine Equation (2020) Potassium measurement (mass/ volume)Ordered By: Victor M Rojas on 11-20-2024 Potassium (Unsp spec) [Mass/Vol] 4.2 mmol/L 3.3-5.1 [facility] Serum creatinine measurement (mass/volume)Ordered By: Victor M Rojas on 11-20-2024 Creatinine [Mass/Vol] 1.75 mg/dL High 0.70-1.20 [facility] Serum glucose measurement (m ass/volume)Ordered By: Victor M Rojas on 11-20-2024 Glucose [Mass/Vol] 130 mg/dL High 70-99 [facility] Serum or plasma albumin akash urement (mass/volume)Ordered By: Victor M Rojas on 11-20-2024 Albumin [Mass/Vol] 3.5 g/dL 3.4-4.8 [facility] Serum or plasma calcium akash urement (mass/volume)Ordered By: Victor M Rojas on 11-20-2024 Calcium [Mass/Vol] 8.8 mg/dL 7.6-11.0 [facility] Serum or plasma urea nitroge n measurement (mass/volume)Ordered By: Victor M Rojas on 11-20-2024 Urea nitrogen [Mass/Vol] 29 mg/dL High 4-19 [facility] Sodium levelOrdered By: Brandon Rojas on 11-20-2024 Sodium [Moles/Vol] 139 mmol/L 133-145 [facility] Calculated very low density lipoprotein (VLDL) cholesterol measurementOrdered By: Christina Whipple on 11-07-2024 Calculated very low density lipoprotein (VLDL) cholesterol measurement 34 mg/dL 5-40 [facility] LDL calc ser/plasOrdered By: Christina Whipple on 11-07-2024 Cholesterol in LDL [Mass/Vol] 43 mg/dL [facility] Comment on above: Oihosffqnf=617-774 m g/dL & Higher Tdqi=988 mg/dL or greater Screening total cholesterol/ high density lipoprotein (HDL) cholesterol ratioOrdered By: Christina Whipple on 11-07-2024 Cholesterol.total/Cholest giuliana in HDL [Mass ratio] 4.60 {ratio} [facility] Serum or plasma cholesterol in HDL measurement (mass/volume)Ordered By: Christina Whipple on 11-07-2024 Cholesterol in HDL [Mass/Vol] 21 mg/dL Low >40 [facility] Comment on above: National Cholesterol Education Program (NCEP) guidelines:<40 mg/dL: Low HDL-cholesterol (major risk factor for CHD)>= 60 mg/dL: High HDL-cholesterol (negative risk factor for CHD)HDL-cholesterol is affected by a number of factors, e.g. smoking, exercise, hormones, sex and age. Serum or plasma cholesterol measurement (mass/volume)Ordered By: Christina Whipple on 11-07-2024 Cholesterol [Mass/Vol] 99 mg/dL <201 [facility] Comment on above: Cholesterol level, D esirable <200 mg/dLBorderline high cholesterol 200-239 mg/dLHigh cholesterol >=240 mg/dLRecommendations of the NCEP Adult Treatment Panel for the following risk-cutoff thresholds for the [place] population. Triglycerides measurementOrd ered By: Christina Whipple on 11-07-2024 Triglyceride [Mass/Vol] 171 mg/dL <199 [facility] Comment on above: The drugs N-Acetylcy steine and Metamizole may falsely depress this assay. Normal range: <150 mg/dLBorderline High: 150-199 mg/dLHigh: 200-499 mg/dLVery High: >500 mg/dL Anion gap in Serum or Plasma Ordered By: Victor M Rojas on 10-23-2024 Anion gap [Moles/Vol] 12 mmol/L 5-15 [facility] BUN/creatinine ratioOrdered By: Victor M Rojas on 10-23-2024 Urea nitrogen/Creatinine [Mass ratio] 21.7 mg/mg High 10-20 [facility] Carbon dioxide, total [Moles /volume] in Central venous bloodOrdered By: Victor M Rojas on 10-23-2024 CO2 [Moles/Vol] 19.8 mmol/L Low 21.0-32.0 [facility] Chloride assayOrdered By: Stefan Rojas on 10-23-2024 Chloride [Moles/Vol] 106 mmol/L 98-108 [facility] Glomerular filtration rate ( GFR) estimation/1.73 sq m using serum, plasma, or whole bOrdered By: Victor M Rojas on 10-23-2024 GFR/1.73 sq M.predicted among non-blacks MDRD (S/P/Bld) [Vol rate/Area] 39 mL/min/{1.73_m2} Low >60 [facility] Comment on above: mL/min/1.73m2 CKD-EP I Creatinine Equation (2020) Potassium measurement (mass/ volume)Ordered By: Victor M Rojas on 10-23-2024 Potassium (Unsp spec) [Mass/Vol] 4.0 mmol/L 3.3-5.1 [facility] Serum creatinine measurement (mass/volume)Ordered By: Victor M Rojas on 10-23-2024 Creatinine [Mass/Vol] 1.73 mg/dL High 0.70-1.20 [facility] Serum glucose measurement (m ass/volume)Ordered By: Victor M Rojas on 10-23-2024 Glucose [Mass/Vol] 129 mg/dL High 70-99 [facility] Serum or plasma albumin akash urement (mass/volume)Ordered By: Victor M Rojas on 10-23-2024 Albumin [Mass/Vol] 3.3 g/dL Low 3.4-4.8 [facility] Serum or plasma calcium akash urement (mass/volume)Ordered By: Victor M Rojas on 10-23-2024 Calcium [Mass/Vol] 8.6 mg/dL 7.6-11.0 [facility] Serum or plasma urea nitroge n measurement (mass/volume)Ordered By: Victor M Rojas on 10-23-2024 Urea nitrogen [Mass/Vol] 38 mg/dL High 4-19 [facility] Sodium levelOrdered By: Brandon Rojas on 10-23-2024 Sodium [Moles/Vol] 137 mmol/L 133-145 [facility] Cardiology Visit Reporton Cardiology Visit Report [facility] [address] [place] [address] OFFICE VISIT Date of Service: 10/16/24 MR#: [id number] Acct: [id number] Name: ELIZABETH MODI Rep #: [id number] : 1940 Provider: GILL Connor Age/Sex: 84/M Location[place] [facility] [place] Status: Signed HPI HPI History of Present [...] 1 in December of 2021 at [facility] in [place]. He had a left internal mammary artery to left anterior descending coronary artery. He is residing at a [facility]. 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 Normal [facility] Elbow min 3 Viewson 10-16-19 Elbow min 3 Views [facility] [address] [place], [place] [id number] Elbow min 3 Views MR#: [id number] Acct: [id number] Name: ELIZABETH MODI Rep #: [id number] : 1940 M 84 From: Edy Kapadia MD PCP: Dr. Diana Salmeron MD Status: REG ER Study: Elbow min 3 Views Date of Exam: 10/15/24 Exam# [id number] Ordering Dr: Jesse Angel DO EXAM: Left elbow CLINICAL HISTORY: Injury, pain COMPARISON: None TECHNIQUE: Three views FINDINGS: No acute fracture or dislocation. Moderate joint space narrowing and osteophyte formation consistent with moderate arthrosis. Normal soft tissues. RAD/Elbow min 3 Views IMPRESSION: No acute fracture or dislocation. Moderate arthrosis. Reading Location: [id number] CC: Dr. Diana Salmeron MD; Dr. Jesse Angel DO Resolution Expert: Signed Normal [facility] Emergency Department Summary on 10-15-2024 Emergency Department Summary [facility] Medical Records Department [address] [place] [address] Emergency Department Summary 10/15/24 MR#: [id number] Acct: [id number] Name: ELIZABETH MODI Rep #: [id number] : 1940 84 From: Jesse Angel DO [...] of his last tetanus. 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 alcohol intake: current alcohol intake frequency: a few times a month details: Prior heavier, now occasional. substance use type: does not use ROS ROS ED Constitutional Constitutional ED: Denies chills or fever(s) Eyes E (more content not included)... Normal [facility] Orb Sella Post Fossa Ear w/o on 10-15-2024 Orb Sella Post Fossa Ear w/o [facility] [address] [place] [id number] Orb Sella Post Fossa Ear w/o MR#: [id number] Acct: [id number] Name: ELIZABETH MODI Rep #: [id number] : 1940 M 84 From: Edy Kapadia MD PCP: Dr. Diana Salmeron MD Status: REG ER Study: Orb Sella Post Fossa Ear w/o Date of Exam: Exam# [id number] Ordering Dr: Jesse Angel DO PROCEDURE: ORB [...] ORBITAL FRACTURE OR RETROBULBAR HEMATOMA. Reading Location: [id number] CC: Dr. Diana Salmeron MD; Dr. Jesse Angel, DO Resolution Expert: Signed Normal [facility] Bacteria Ur Culton 5 Bacteria [...] technique or straight catheterization for???urine???collecti on. Normal [facility] Comment on above: Performed By: #### 6 30-4 #### [facility] CLIA [id number] [address] [place] [address] [place] CNOVon 10-01-2024 CNOV Office Visit (UROLWS ) ELIZABETH MODI ([id number]) 1940 M [facility] Date Time Provider Department 10/01/24 1:00 [...] now for an appointment with JAJA Stewart, GERALDINE DIAZ. Procedure: Explained procedure to patient and verbalizes understanding. Performed a PVR. Patient urinated and instructed to empty bladder as much as possible just prior to having PVR done using bladder ultrasound scanner. Results of scan: 163 mL The patient tolerated the procedure well. Plan: Appointment with Nikolai. Nikolai Connor PA-C 10/01/2024 2:58 PM Signed [facility] PATIENT CLINIC NOTE (M) Some [...] (ADULTS MULTIVITAMIN ORAL) Take by mouth. vit C,U-Fj-odsdi-lutein-ze axan (PRESERVISION AREDS-2) 250-90-40-1 mg Take 1 [...] mg ta (more content not included)... Normal [facility] 10-01-2024 CNPN Telephone (UROLWS) ELIZABETH MODI ([id number]) 1940 M T Date Time Provider Department [...] Visit Diagnosis:Gross hematuria [R31.0] Order(s):CT UROGRAM WO/W MICHELON [[id number]] Order #: [id number] FUTURE iv contrast (will be provided with [...] MULTIVITAMIN ORAL) Take by mouth. - vit C,C-Nr-lcjax-lutein-ze axan (PRESERVISION AREDS-2) 250-90-40-1 mg Take 1 [...] mouth once (more content not included)... Normal [facility] Anion gap in Serum or Plasma Ordered By: Victor M Rojas on 09-18-2024 Anion gap [Moles/Vol] 14 mmol/L 5-15 [facility] BUN/creatinine ratioOrdered By: Victor M Rojas on 09-18-2024 Urea nitrogen/Creatinine [Mass ratio] 14.2 mg/mg 10- [facility] Bilirubin, totalOrdered By: Victor M Rojas on 09-18-2024 Bilirubin [Mass/Vol] 0.55 mg/dL 0.00-1.30 [facility] Calculated very low density lipoprotein (VLDL) cholesterol measurementOrdered By: Victor M Rojas on 09-18-2024 Calculated very low density lipoprotein (VLDL) cholesterol measurement 38 mg/dL [facility] VLDL Cholesterol 38 mg/dL [facility] Carbon dioxide, total [Moles /volume] in Central venous bloodOrdered By: Victor M Rojas on 09-18-2024 CO2 [Moles/Vol] 19.8 mmol/L Low 21.0-32.0 [facility] Chloride assayOrdered By: Stefan Rojas on 09-18-2024 Chloride [Moles/Vol] 102 mmol/L 98-108 [facility] Erythrocyte distribution wid th (RBC) [Ratio]Ordered By: Victor M Rojas on 09-18-2024 Erythrocyte distribution width (RBC) [Entitic vol] 47.1 fL High 35.1-43.9 [facility] Erythrocyte distribution wid th ratioOrdered By: Victor M Rojas on 09-18-2024 Erythrocyte distribution width (RBC) [Ratio] 14.4 % 11.6-14.6 [facility] Erythrocyte distribution wid th standard deviationOrdered By: Victor M Rojas on 09-18-2024 Erythrocyte distribution width (RBC) [Ratio] 47.1 fl High 35.1-43.9 [facility] GFR/1.73 sq M.predicted jacobo g non-blacks MDRD (S/P/Bld) [Vol rate/Area]Ordered By: Victor M Rojas on 09-18-2024 Estimated GFR (MDRD) Non-Af Amer 27 Low >60 [facility] Comment on above: mL/min/1.73m2 CKD-EP I Creatinine Equation (2020) Glomerular filtration rate ( GFR) estimation/1.73 sq m using serum, plasma, or whole bOrdered By: Victor M Rojas on 09-18-2024 GFR/1.73 sq M.predicted among non-blacks MDRD (S/P/Bld) [Vol rate/Area] 27 mL/min/{1.73_m2} Low >60 [facility] Comment on above: mL/min/1.73m2 CKD-EP I Creatinine Equation (2020) Hematocrit Auto (Bld) [Volum e fraction]Ordered By: Victor M Rojas on 09-18-2024 Hematocrit (Bld) [Volume fraction] 41.2 % 40-54 [facility] Hemoglobin A1c percentageOrd ered By: Victor M Rojas on 09-18-2024 HbA1c (Bld) [Mass fraction] 11.3 % >5.7 [facility] Hemoglobin measurementOrdere d By: Victor M Rojas on 09-18-2024 Hemoglobin (Bld) [Mass/Vol] 13.5 g/dL 13.0-16.5 [facility] LDL calc ser/plasOrdered By: Victor M Rojas on 09-18-2024 Cholesterol in LDL [Mass/Vol] 44 mg/dL [facility] Comment on above: Ztdtouvfsu=641-459 m g/dL & Higher Lvcm=008 mg/dL or greater LDL Cholesterol, Calculated 44 mg/dL [facility] Comment on above: Tqiwydshfz=554-273 m g/dL & Higher Lvja=082 mg/dL or greater Laboratory - Chemistry and C hemistry - challengeOrdered By: Victor M Rojas on 09-18-2024 AST [Catalytic activity/Vol] 43 U/L High <38 [facility] Comment on above: Hemolysis present, R esults could be affected. MCV (mean corpuscular volume ) determinationOrdered By: Victor M Rojas on 09-18-2024 MCV (RBC) [Entitic vol] 89.6 fL 80-94 [facility] Mean corpuscular hemoglobin (MCH) determinationOrdered By: Victor M Rojas on 09-18-2024 MCH (RBC) [Entitic mass] 29.3 pg 27.0-32.0 [facility] Mean corpuscular hemoglobin concentration (MCHC) determinationOrdered By: Victor M Rojas on 09-18-2024 MCHC (RBC) [Mass/Vol] 32.8 g/dL 32-36 [facility] Mean platelet volume determi nationOrdered By: Victor M Rojas on 09-18-2024 Platelet mean volume (Bld) [Entitic vol] 12.0 fL 6.2-12.0 [facility] Platelet countOrdered By: Stefan Rojas on 09-18-2024 Platelets (Bld) [#/Vol] 209 10*3/uL 150-450 [facility] Potassium (Unsp spec) [Mass/ Vol]Ordered By: Victor M Rojas on 09-18-2024 Potassium [Moles/Vol] 4.1 mmol/L 3.3-5.1 [facility] Comment on above: Hemolysis present, R esults could be affected. Potassium measurement (mass/ volume)Ordered By: Victor M Rojas on 09-18-2024 Potassium (Unsp spec) [Mass/Vol] 4.1 mmol/L 3.3-5.1 [facility] Comment on above: Hemolysis present, R esults could be affected. RBC Auto (Bld) [#/Vol]Ordere d By: Victor M Rojas on 09-18-2024 RBC (Bld) [#/Vol] 4.60 10*6/uL 4.6-6.2 [facility] Screening total cholesterol/ high density lipoprotein (HDL) cholesterol ratioOrdered By: Victor M Rojas on 09-18-2024 Cholesterol.total/Cholest giuliana in HDL [Mass ratio] 4.29 {ratio} [facility] Serum creatinine measurement (mass/volume)Ordered By: Victor M Rojas on 09-18-2024 Creatinine [Mass/Vol] 2.35 mg/dL High 0.70-1.20 [facility] Serum globulin measurementOr dered By: Victor M Rojas on 09-18-2024 Globulin (S) [Mass/Vol] 3.4 g/dL 2.2-4.2 [facility] Serum glucose measurement (m ass/volume)Ordered By: Victor M Rojas on 09-18-2024 Glucose [Mass/Vol] 287 mg/dL High 70-99 [facility] Serum or plasma alanine mojica otransferase (ALT) measurementOrdered By: Victor M Rojas on 09-18-2024 ALT [Catalytic activity/Vol] 41 U/L <47 [facility] Serum or plasma albumin akash urement (mass/volume)Ordered By: Victor M Rojas on 09-18-2024 Albumin [Mass/Vol] 3.4 g/dL 3.4-4.8 [facility] Serum or plasma albumin/glob ulin mass ratioOrdered By: Victor M Rojas on 09-18-2024 Albumin/Globulin [Mass ratio] 1.0 {ratio} 0.9-2.4 [facility] Serum or plasma alkaline marielos sphatase measurementOrdered By: Victor M Rojas on 09-18-2024 ALP [Catalytic activity/Vol] 113 U/L 40-129 [facility] Serum or plasma calcium akash urement (mass/volume)Ordered By: Victor M Rojas on 09-18-2024 Calcium [Mass/Vol] 9.0 mg/dL 7.6-11.0 [facility] Serum or plasma cholesterol in HDL measurement (mass/volume)Ordered By: Victor M Rojas on 09-18-2024 Cholesterol in HDL [Mass/Vol] 25 mg/dL Low >40 [facility] Comment on above: National Cholesterol Education Program (NCEP) guidelines:<40 mg/dL: Low HDL-cholesterol (major risk factor for CHD)>= 60 mg/dL: High HDL-cholesterol (negative risk factor for CHD)HDL-cholesterol is affected by a number of factors, e.g. smoking, exercise, hormones, sex and age. Serum or plasma cholesterol measurement (mass/volume)Ordered By: Victor M Rojas on 09-18-2024 Cholesterol [Mass/Vol] 108 mg/dL <201 [facility] Comment on above: Cholesterol level, D esirable <200 mg/dLBorderline high cholesterol 200-239 mg/dLHigh cholesterol >=240 mg/dLRecommendations of the NCEP Adult Treatment Panel for the following risk-cutoff thresholds for the [place] population. Serum or plasma urea nitroge n measurement (mass/volume)Ordered By: Victor M Rojas on 09-18-2024 Urea nitrogen [Mass/Vol] 33 mg/dL High 4-19 [facility] Sodium levelOrdered By: Brandon wynn Darwinluiskaran on 09-18-2024 Sodium [Moles/Vol] 135 mmol/L 133-145 [facility] TSH DL <= 0.005 mIU/L QnOrde red By: Stefanradha Granadosluiskaran on 09-18-2024 Thyroid Stimulating Hormone (TSH) 3.520 uIU/mL 0.300-4.200 [facility] TSH Qn 3.520 uIU/mL 0.300-4.200 [facility] Total proteinOrdered By: Prosper flemingprice Rojas on 09-18-2024 Protein [Mass/Vol] 6.7 g/dL 5.9-8.4 [facility] Triglycerides measurementOrd ered By: Stefanradha Granadosluiskaran on 09-18-2024 Triglyceride [Mass/Vol] 192 mg/dL <199 [facility] Comment on above: The drugs N-Acetylcy steine and Metamizole may falsely depress this assay. Normal range: <150 mg/dLBorderline High: 150-199 mg/dLHigh: 200-499 mg/dLVery High: >500 mg/dL White blood cell (WBC) count Ordered By: Victor M Rojas on 09-18-2024 WBC (Bld) [#/Vol] 8.5 10*3/uL 4.4-11.0 [facility] Gastroenterology Visit Repor ton 09-06-2024 Gastroenterology Visit Report [facility]astro[facility] [address] [place] [address] OFFICE VISIT Date of Service: 09/06/24 MR#: [id number] Acct: [id number] Name: ELIZABETH MODI Rep #: [id number] : 1940 Provider: GILL Jefferson Age/Sex: 84/M Location: [facility] Status: Signed Intake Vital Signs 01/11/24 07:47 [...] is experiencing diarrhea only once in awhile. 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 alcohol intake: current alcohol intake frequency: a few times a month details: Prior heavier, now occasional. substance use type: does not use HPI HPI Chief Complaint: fecal incontinence Details: ELIZABETH MODI, is a 84 M who presents to the office today for f/u. [facility] hospitalization 12.14.22-7.23 for management of choledocholithiasis, calculous cholecystis with obstruction and renal mass. US RUQ 6.28.23 left hepatic cyst 2.2x2.5x1.9cm; gallbladder pericholecystic fluid [...] Appearance: average body habitus and well nourished [facility] Head: normal to ins (more content not included)... Normal [facility] Anion gap in Serum or Plasma Ordered By: Victor M Rojas on 08-21-2024 Anion gap [Moles/Vol] 14 mmol/L 5-15 [facility] BUN/creatinine ratioOrdered By: Victor M Rojas on 08-21-2024 Urea nitrogen/Creatinine [Mass ratio] 18.2 mg/mg 10-20 [facility] Carbon dioxide, total [Moles /volume] in Central venous bloodOrdered By: Victor M Rojas on 08-21-2024 CO2 [Moles/Vol] 20.5 mmol/L Low 21.0-32.0 [facility] Chloride assayOrdered By: Stefan Rojas on 08-21-2024 Chloride [Moles/Vol] 102 mmol/L 98-108 [facility] GFR/1.73 sq M.predicted jacobo g non-blacks MDRD (S/P/Bld) [Vol rate/Area]Ordered By: Victor M Rojas on 08-21-2024 Estimated GFR (MDRD) Non-Af Amer 31 Low >60 [facility] Comment on above: mL/min/1.73m2 CKD-EP I Creatinine Equation (2020) Glomerular filtration rate ( GFR) estimation/1.73 sq m using serum, plasma, or whole bOrdered By: Victor M Rojas on 08-21-2024 GFR/1.73 sq M.predicted among non-blacks MDRD (S/P/Bld) [Vol rate/Area] 31 mL/min/{1.73_m2} Low >60 [facility] Comment on above: mL/min/1.73m2 CKD-EP I Creatinine Equation (2020) Potassium (Unsp spec) [Mass/ Vol]Ordered By: Victor M Rojas on 08-21-2024 Potassium [Moles/Vol] 4.3 mmol/L 3.3-5.1 [facility] Potassium measurement (mass/ volume)Ordered By: Victor M Rojas on 08-21-2024 Potassium (Unsp spec) [Mass/Vol] 4.3 mmol/L 3.3-5.1 [facility] Serum creatinine measurement (mass/volume)Ordered By: Victor M Rojas on 08-21-2024 Creatinine [Mass/Vol] 2.07 mg/dL High 0.70-1.20 [facility] Serum glucose measurement (m ass/volume)Ordered By: Victor M Rojas on 08-21-2024 Glucose [Mass/Vol] 198 mg/dL High 70-99 [facility] Serum or plasma albumin akash urement (mass/volume)Ordered By: Victor M Rojas on 08-21-2024 Albumin [Mass/Vol] 3.3 g/dL Low 3.4-4.8 [facility] Serum or plasma calcium akash urement (mass/volume)Ordered By: Victor M Rojas on 08-21-2024 Calcium [Mass/Vol] 8.8 mg/dL 7.6-11.0 [facility] [place] Serum or plasma urea nitroge n measurement (mass/volume)Ordered By: Victor M Rojas on 08-21-2024 Urea nitrogen [Mass/Vol] 38 mg/dL High 4-19 [facility] Serum phosphorus measurement Ordered By: Victor M Rojas on 08-21-2024 Phosphorus Level 4.2 mg/dL 2.7-4.5 [facility] Sodium levelOrdered By: Brandon Rojas on 08-21-2024 Sodium [Moles/Vol] 136 mmol/L 133-145 [facility] [place] Random urine microalbumin me asurementOrdered By: Victor M Rojas on 08-01-2024 Urine Random Microalbumin 583.0 mg/L NO RANGE EST. [facility] Urine albumin/creatinine rat io for detection of microalbuminuriaOrdered By: Victor M Rojas on 08-01-2024 Urine Microalbumin/Creatinine Ratio 1371.8 mg/g CRE High <30 [facility] Urine creatinine measurement (mass/volume)Ordered By: Victor M Rojas on 08-01-2024 Creatinine (U) [Mass/Vol] 42.50 mg/dL NO RANGE EST. [facility] Blood urea nitrogen (BUN)/cr eatinine ratioOrdered By: Victor M Rojas on 07-24-2024 Urea nitrogen/Creatinine [Mass ratio] 20.5 mg/mg High 10-20 [facility] Carbon dioxide measurementOr dered By: Victor M Rojas on 07-24-2024 CO2 [Moles/Vol] 21.0 mmol/L 21.0-32.0 [facility] Chloride measurementOrdered By: Victor M Rojas on 07-24-2024 Chloride [Moles/Vol] 106 mmol/L 98-107 [facility] Estimated glomerular filtrat ion rate (GFR) AmericanOrdered By: Victor M Rojas on 07-24-2024 Estimated GFR (MDRD) Amer 44 mL/min Low >60 [facility] Comment on above: GFR Calc Glomerular filtration rate ( GFR) estimationOrdered By: Victor M Rojas on 07-24-2024 Estimated GFR (MDRD) Non-Af Amer 36 mL/min Low >60 [facility] Comment on above: Non- GFR Calc GFR/1.73 sq M.predicted among non-blacks MDRD (S/P/Bld) [Vol rate/Area] 36 mL/min/{1.73_m2} Low >60 [facility] Comment on above: Non- GFR Calc Glucose measurementOrdered B y: Victor M Rojas on 07-24-2024 Glucose [Mass/Vol] 230 mg/dL High 74-106 [facility] [place] Comment on above: Glucose result great er than or equal to 200 mg/dLsuggests DIABETES MELLITUS per A.D.A. criteria. Hemoglobin A1c percentageOrd ered By: Victor M Rojas on 07-24-2024 HbA1c (Bld) [Mass fraction] 8.3 % High 3.8-5.6 [facility] Comment on above: Normal < 5.7 % Predi abetic 5.7 - 6.4 % Diabetic >or= 6.5 % Please note range changes. Phosphorus measurementOrdere d By: Victor M oRjas on 07-24-2024 Phosphorus Level 3.4 mg/dL 2.5-4.9 [facility] Potassium measurementOrdered By: Victor M Rojas on 07-24-2024 Potassium [Moles/Vol] 4.3 mmol/L 3.5-5.1 [facility] Serum or plasma albumin akash urement (mass/volume)Ordered By: Milyprice Granadosluiskaran on 07-24-2024 Albumin [Mass/Vol] 2.7 g/dL Low 3.2-5.0 [facility] [place] Serum or plasma calcium akash urement (mass/volume)Ordered By: Victor M Darwinkelly on 07-24-2024 Calcium [Mass/Vol] 8.2 mg/dL Low 8.5-10.1 [facility] [place] Serum or plasma creatinine m easurement (mass/volume)Ordered By: Milyprice Granadosluiskaran on 07-24-2024 Creatinine [Mass/Vol] 1.90 mg/dL High 0.70-1.30 [facility] Comment on above: The validity of the calculated GFR & GFRAA in patients over 70 years has not been determined. Clinical correlation is essential. Serum or plasma urea nitroge n measurement (mass/volume)Ordered By: Milyprice Granadosluiskaran on 07-24-2024 Urea nitrogen [Mass/Vol] 39 mg/dL High 7-18 [facility] Sodium levelOrdered By: Brandon wynn Darwinluiskaran on 07-24-2024 Sodium [Moles/Vol] 135 mmol/L Low 136-[address] [facility] [place] [address] UROGRAM WO/W IVCONon 06-19 CT UROGRAM WO/W IVCON * * *Final Report* * * DATE OF EXAM: Jun 28 2024 2:26PM [facility] 0560 - CT UROGRAM WO/W IVCON [...] be communicated with the ordering provider via Quantitative Medicine staff message or phone message by [facility] [employer] [facility] within 2 business days of report finalization. --END OF FINDING-- Resolution Expert: ONEL Transcribe Date/Time: Jul 01 2024 9:40P Dictated by : JARAD ARCOS MD This examination was interpreted and the report reviewed and electronically signed by: JARAD ARCOS MD on Jul 01 2024 9:53PM EST [id number] ACTIONABLE Invalid Interpretation Code [facility] [place] Estimated glomerular filtrat ion rate (GFR) AmericanOrdered By: Victor M Rojas on 06-27-2024 Estimated GFR (MDRD) Amer 37 mL/min Low >60 [facility] Comment on above: GFR Calc Glomerular filtration rate ( GFR) estimationOrdered By: Victor M Rojas on 06-27-2024 Estimated GFR (MDRD) Non-Af Amer 31 mL/min Low >60 [facility] Comment on above: Non- GFR Calc Serum or plasma creatinine m easurement (mass/volume)Ordered By: Victor M Rojas on 06-27-2024 Creatinine [Mass/Vol] 2.20 mg/dL High 0.70-1.30 [facility] Comment on above: The validity of the calculated GFR & GFRAA in patients over 70 years has not been determined. Clinical correlation is essential. Beau 06-21-2024 JONAS Telephone (UROLWS) ELIZABETH MODI ([id number]) 1940 M [facility] Date Time Provider Department 06/21/24 NIKOLAI CONNOR During your visit today, we recorded the following information about you: Anaid Payne MA 06/21/2024 4:28 PM Signed ----- Message from Nikolai Connor PA-C sent at 06/21/2024 3:54 PM EST ----- No infection in the urine No cancer cells in urine, please continue the rest of the testing JAJA Stewart, MD, Susan Lopez MA 06/25/2024 8:47 AM Signed [...] MULTIVITAMIN ORAL) Take by mouth. - vit C,R-Nm-ouqmh-lutein-ze axan (PRESERVISION AREDS-2) 250-90-40-1 mg Take 1 [...] disease) (HCC) [I73.9] 12/07/2019 Below knee amputation ([facility]) [S88.119A] 12/07/2019 Nonhealing surgical wound [T81.89XA] 12/09/2019 Left renal mass [N28.89] 05/05/2023 Encounter Status:Closed by LUKE TAYLOR on 07/09/24 Normal [facility] [place] Absolute neutrophil countOrd ered By: Victor M Rojas on 06-20-2024 Neutrophils (Bld) [#/Vol] 5.5 10*3/uL 2.0-7.7 [facility] Albumin to globulin ratioOrd ered By: Victor M Rojas on 06-20-2024 Albumin/Globulin [Mass ratio] 0.7 {ratio} Low 0.9-2.4 [facility] Basophil percentageOrdered B y: Victor M Rojas on 06-20-2024 Basophils/100 WBC (Bld) 0.3 % 0-1 [facility] Bilirubin, totalOrdered By: Victor M Rojas on 06-20-2024 Bilirubin [Mass/Vol] 0.70 mg/dL 0.20-1.00 [facility] Comment on above: For patients on eltr ombopag therapy, use of Dimension [place] TBIL is not recommended. Blood urea nitrogen (BUN)/cr eatinine ratioOrdered By: Victor M Rojas on 06-20-2024 Urea nitrogen/Creatinine [Mass ratio] 19.0 mg/mg 10-20 [facility] Carbon dioxide measurementOr dered By: Victor M Rojas on 06-20-2024 CO2 [Moles/Vol] 24.0 mmol/L 21.0-32.0 [facility] Chloride measurementOrdered By: Victor M Rojas on 06-20-2024 Chloride [Moles/Vol] 104 mmol/L 98-107 [facility] Eosinophil percentageOrdered By: Victor M Rojas on 06-20-2024 Eosinophils/100 WBC (Bld) 2.5 % 0-5 [facility] Erythrocyte distribution wid th (RBC) [Ratio]Ordered By: VictorM Rojas on 06-20-2024 Erythrocyte distribution width (RBC) [Entitic vol] 47.8 fL High 35.1-43.9 [facility] [place] Erythrocyte distribution wid th ratioOrdered By: Victor M Rojas on 06-20-2024 Erythrocyte distribution width (RBC) [Ratio] 14.7 % High 11.6-14.6 [facility] Estimated glomerular filtrat ion rate (GFR) AmericanOrdered By: Victor M Rojas on 06-20-2024 Estimated GFR (MDRD) Amer 51 mL/min Low >60 [facility] Comment on above: GFR Calc Glomerular filtration rate ( GFR) estimationOrdered By: Victor M Rojas on 06-20-2024 Estimated GFR (MDRD) Non-Af Amer 42 mL/min Low >60 [facility] Comment on above: Non- GFR Calc Glucose measurementOrdered B y: Victor M Rojas on 06-20-2024 Glucose [Mass/Vol] 190 mg/dL High 74-106 [facility] [place] Comment on above: Fasting Glucose resu lt greater than or equal to 126 mg/dL suggests DIABETES MELLITUS per A.D.A. criteria. Hematocrit Auto (Bld) [Volum e fraction]Ordered By: Victor M Rojas on 06-20-2024 Hematocrit (Bld) [Volume fraction] 42.8 % 40-54 [facility] Hemoglobin A1c percentageOrd ered By: Victor M Rojas on 06-20-2024 HbA1c (Bld) [Mass fraction] 8.3 % High 3.8-5.6 [facility] Comment on above: Normal < 5.7 % Predi abetic 5.7 - 6.4 % Diabetic >or= 6.5 % Please note range changes. Hemoglobin measurementOrdere d By: Victor M Rojas on 06-20-2024 Hemoglobin (Bld) [Mass/Vol] 13.6 g/dL 13.0-16.5 [facility] High density lipoprotein (HD L) measurementOrdered By: Victor M Rojas on 06-20-2024 Cholesterol in HDL [Mass/Vol] 29 mg/dL Low >40 [facility] Comment on above: The drugs N-Acetylcy steine and Metamizole may falsely depress this assay. Reference Range HDL <40 mg/dL Low HDL Cholesterol HDL >or= 60 mg/dL High HDL Cholesterol Immature granulocytes/100 WB C Auto (Bld)Ordered By: Victor M Rojas on 06-20-2024 Immature granulocytes/100 WBC (Bld) 1.900 % High 0.0-0.9 [facility] Comment on above: IG% - Immature Granu locytes (promyelocytes, myelocytes and metamyelocytes) > 1% indicates that a LEFT SHIFT is Present. Laboratory - Chemistry and C hemistry - challengeOrdered By: Victor M Rojas on 06-20-2024 AST [Catalytic activity/Vol] 37 U/L 15-37 [facility] Comment on above: Slight Hemolysis, Re sult may be falsely increased. Low density lipoprotein (LDL ) cholesterol measurementOrdered By: Victor M Rojas on 06-20-2024 Cholesterol in LDL [Mass/Vol] 46 mg/dL 0-130 [facility] Lymphocytes Auto (Unsp spec) [#/Vol]Ordered By: Victor M Rojas on 06-20-2024 Lymphocytes (Bld) [#/Vol] 1.97 10*3/uL 0.83-4.5 1 [facility] Lymphocytes/100 WBC Auto (Un sp spec)Ordered By: Victor M Rojas on 06-20-2024 Lymphocytes/100 WBC (Bld) 21.8 % 19-41 [facility] MCV (mean corpuscular volume ) determinationOrdered By: Victor M Rojas on 06-20-2024 MCV (RBC) [Entitic vol] 89.9 fL 80-94 [facility] Mean corpuscular hemoglobin (MCH) determinationOrdered By: Victor M Rojas on 06-20-2024 MCH (RBC) [Entitic mass] 28.6 pg 27.0-32.0 [facility] Mean corpuscular hemoglobin concentration (MCHC) determinationOrdered By: Victor M Rojas on 06-20-2024 MCHC (RBC) [Mass/Vol] 31.8 g/dL Low 32-36 [facility] Mean platelet volume determi nationOrdered By: Victor M Rojas on 06-20-2024 Platelet mean volume (Bld) [Entitic vol] 11.9 fL 6.2-12.0 [facility] Monocyte percentageOrdered B y: Victor M Rojas on 06-20-2024 Monocytes/100 WBC (Bld) 13.0 % High 0-10 [facility] Neutrophil percentageOrdered By: Victor M Rojas on 06-20-2024 Neutrophils/100 WBC (Bld) 60.5 % 47-70 [facility] Nucleated red blood cell per centageOrdered By: Victor M Rojas on 06-20-2024 Nucleated RBC/100 WBC (Bld) [Ratio] 0 % 0-5 [facility] Platelet countOrdered By: Stefan Rojas on 06-20-2024 Platelets (Bld) [#/Vol] 239 10*3/uL 150-450 [facility] Potassium measurementOrdered By: Victor M Rojas on 06-20-2024 Potassium [Moles/Vol] 4.2 mmol/L 3.5-5.1 [facility] Comment on above: Slight Hemolysis, Re sult may be falsely increased. RBC Auto (Bld) [#/Vol]Ordere d By: Victor M Rojas on 06-20-2024 RBC (Bld) [#/Vol] 4.76 10*6/uL 4.6-6.2 [facility] Serum anion gap measurementO rdered By: Victor M Rojas on 06-20-2024 Anion gap [Moles/Vol] 8 mmol/L 5-15 [facility] Serum globulin measurementOr dered By: Victor M Rojas on 06-20-2024 Globulin (S) [Mass/Vol] 3.9 g/dL 2.2-4.2 [facility] Serum or plasma alanine mojica otransferase (ALT) measurementOrdered By: Victor M Rojas on 06-20-2024 ALT [Catalytic activity/Vol] 45 U/L 16-61 [facility] Serum or plasma albumin akash urement (mass/volume)Ordered By: Victor M Rojas on 06-20-2024 Albumin [Mass/Vol] 2.8 g/dL Low 3.2-5.0 [facility] [place] Serum or plasma alkaline marielos sphatase measurementOrdered By: Victor M Rojas on 06-20-2024 ALP [Catalytic activity/Vol] 123 U/L High 45-117 [facility] Serum or plasma calcium akash urement (mass/volume)Ordered By: Victor M Rojas on 06-20-2024 Calcium [Mass/Vol] 8.4 mg/dL Low 8.5-10.1 [facility] [place] Serum or plasma cholesterol measurement (mass/volume)Ordered By: Victor M Roajs on 06-20-2024 Cholesterol [Mass/Vol] 104 mg/dL <200 [facility] Comment on above: <200 mg/dL Desirable 200-240 mg/dL Borderline >240 mg/dL High Risk Serum or plasma creatinine m easurement (mass/volume)Ordered By: Victor M Rojas on 06-20-2024 Creatinine [Mass/Vol] 1.68 mg/dL High 0.70-1.30 [facility] Comment on above: The validity of the calculated GFR & GFRAA in patients over 70 years has not been determined. Clinical correlation is essential. Serum or plasma urea nitroge n measurement (mass/volume)Ordered By: Victor M Darwinluiskaran on 06-20-2024 Urea nitrogen [Mass/Vol] 32 mg/dL High 7-18 [facility] Sodium levelOrdered By: Brandon wynn Darwinkelly on 06-20-2024 Sodium [Moles/Vol] 136 mmol/L 136-145 [facility] [place] TSH QnOrdered By: Victor M Darwinkelly on 06-20-2024 Thyroid Stimulating Hormone (TSH) 2.290 uIU/mL 0.358-3.740 [facility] Total proteinOrdered By: Prosper phelan Darwinluiskaran on 06-20-2024 Protein [Mass/Vol] 6.7 g/dL 6.4-8.2 [facility] [place] Triglycerides measurementOrd ered By: Victor M Darwinkelly on 06-20-2024 Triglyceride [Mass/Vol] 145 mg/dL <199 [facility] Comment on above: The drugs N-Acetylcy steine and Metamizole may falsely depress this assay.Serum Triglycerides Reference Interval Normal <150 mg/dL Borderline high 150 - 199 mg/dL High 200 - 499 mg/dL Very High > or = 500 mg/dL Very low density lipoprotein (VLDL) cholesterol measurementOrdered By: Victor M Darwinluiskaran on 06-20-2024 VLDL Cholesterol 29 mg/dL 5-40 [facility] White blood cell (WBC) count Ordered By: Victor M Darwinkelly on 06-20-2024 WBC (Bld) [#/Vol] 9.1 10*3/uL 4.4-11.0 [facility] [place] Bacteria Ur Culton 4 Bacteria identified Cx [...] technique or straight catheterization for???urine???collecti on. Normal [facility] Comment on above: Performed By: #### 6 30-4 #### [facility] CLIA [id number] [address] [place] [address] [place] CNOVon 06-18-2024 CNOV Office Visit (UROLWS ) ELIZABETH MODI ([id number]) 1940 M [facility] Date Time Provider Department 06/18/24 1:00 PM NIKOLAI CONNOR UROLWS During your visit today, we recorded the following information about you: Nikolai Connor PA-C 06/18/2024 4:05 PM Signed [facility] NEW PATIENT CLINIC NOTE SERVICE DATE: June 18, 2024 NAME: Elizabeth Modi CHIEF COMPLAINT: Hematuria HISTORY OF PRESENT ILLNESS: Elizabeth Modi is a 83 year old male an new patient here for The patient reports Hematuria with a few episodes of hematuria Will get Urine sample today for culture and cytology Schedule Cystoscopy at [place] And CT Urogram at [place] We discussed the need for full hematuria [...] (ADULTS MULTIVITAMIN ORAL) Take by mouth. vit C,X-Fl-xgrwb-lutein-ze axan (PRESERVISION AREDS-2) 250-90-40-1 mg Take 1 [...] DM (diab (more content not included)... Normal [facility] CREATININE BLDOrdered By: Amelia August on 06-18-2024 Creatinine [Mass/Vol] 1.37 mg/dL High 0.73 - 1.22 mg/dL [facility] GFR/1.73 sq M.predicted among non-blacks MDRD (S/P/Bld) [Vol rate/Area] 52 mL/min/{1.73_m2} Low - PINF [facility] Comment on above: Estimated Glomerular Filtration [...] Interpretation and review of laboratory results Abnormal [facility] CREATININE BLDon 06-18-2024 Creatinine [Mass/Vol] 1.37 mg/dL High 0.73-1.22 [facility] Comment on above: Order Comment: Marty quinonez Type: BLOOD SPECIMEN Ordering Facility: [facility] Address: [address] [place] [address] Performed By: #### C RET1 #### [facility] [id number] [address] [place] [address] Creatinine and Glomerular filtration rate.predicted panel (S/P/Bld) 52 mL/min/1.73m??? Low >=60 [facility] Comment on above: Order Comment: Marty quinonez Type: BLOOD SPECIMEN Ordering Facility: [facility] Address: [address] [place] [address] Result Comment: Alma Delia mated Glomerular Filtration [...] GFR. Performed By: #### C RET1 #### [facility] [id number] [address] [place] [address] [place] CYTOLOGY NON-GYNon CASE REPORT Normal [facility] [place] Comment on above: Order Comment: Marty quinonez Type: URINE SPECIMEN Ordering Facility: [facility] Address: [address] [place] [address] Result Comment: [facility] Cytology Report Case: [id number] Authorizing Provider: Nikolai Connor PA-C Collected: 06/18/2024 01:58 PM Ordering Location: Urology Received: 06/18/2024 02:43 PM Pathologist: Eric Sutherland MD Specimen: Urine, Cystoscopic Performed By: #### C YTONON #### [facility] CLIA [id number] [address] [place] [address] [place] [facility] CLINICAL H[facility]ORY hematuria Normal [facility] Comment on above: Order Comment: Speci men Type: URINE SPECIMEN Ordering Facility: [facility] Address: [address] [place] [address] Performed By: #### C YTONON #### [facility] CLIA [id number] [address] [place] [address] OF [facility] FINAL DIAGNOSIS Normal [facility] Comment on above: Order Comment: Speci men Type: URINE SPECIMEN Ordering Facility: [facility] Address: [address] [place] [address] Result Comment: A - Urine, Cystoscopic Negative for high-grade urothelial carcinoma. Acute and chronic inflammation. Blood. Performed By: #### C YTONON #### [facility] CLIA [id number] [address] [place] [address] [place] FINAL PERFORMING LAB Normal [facility] Comment on above: Order Comment: Speci men Type: URINE SPECIMEN Ordering Facility: [facility] Address: [address] [place] [address] Result Comment: Tech nical component, welding setter screening performed at [facility], [address] [place] [address] CLIA# [id number] Diagnostic interpretation performed at [facility], [address] [place] [address] CLIA# [id number] Outbound Sales Professional: Kemal Campos M.D. Performed By: #### C YTONON #### [facility] CLIA [id number] [address] [place] [address] [place] GROSS DESCRIPTION Normal [facility] Comment on above: Order Comment: Speci men Type: URINE SPECIMEN Ordering Facility: [facility] Address: [address] [place] [address] Result Comment: José Miguel hannah, Cystoscopic 8 cc cloudy red fluid . ThinPrep prepared. Performed By: #### C YTONON #### [facility] CLIA [id number] [address] [place] [address] [place] Bilirubin Test strip Ql (U)O rdered By: Victor M Rojas on 06-17-2024 Bilirubin Ql (U) Negative Negative [facility] Glucose Ql (U)Ordered By: Stefan Rojas on 06-17-2024 Glucose (U) [Mass/Vol] 1000 mg/dL High Normal [facility] Ketones Test strip Ql (U)Ord ered By: Victor M Rojas on 06-17-2024 Ketones Ql (U) Negative Negative [facility] Nitrite Test strip Ql (U)Ord ered By: Victor M Rojas on 06-17-2024 Nitrite Ql (U) Negative Negative [facility] Protein Test strip Ql (U)Ord ered By: Victor M Rojas on 06-17-2024 Protein Ql (U) 500 mg/dl High Negative [facility] Urine blood detectionOrdered By: Victor M Rojas on 06-17-2024 Urine Occult Blood 250 /ul High Negative [facility] Urine clarityOrdered By: Prosper Rojas on 06-17-2024 Clarity (U) Cloudy Clear [facility] Urine color determinationOrd ered By: Victor M Rojas on 06-17-2024 Color (U) Red Yellow [facility] Urine cultureOrdered By: Prosper Rojas on 06-17-2024 Bacteria identified Cx Nom (U) Culture exhibits no growth. [facility] Urine leukocyte esterase det ection by dipstickOrdered By: Milyprice Bob on 06-17-2024 Leukocyte esterase Test strip Ql (U) 25 /ul High Negative [facility] Urine pHOrdered By: Tg Rojas on 06-17-2024 pH (U) 5.0 [pH] 5.0 - 8.0 [facility] Urine specific gravity measu rementOrdered By: Victor M Rojas on 06-17-2024 Specific gravity (U) [Rel density] 1.015 1.002-1.030 [facility] Urobilinogen Ql (U)Ordered B y: Victor M Rojas on 06-17-2024 Urine Urobilinogen Normal mg/dl Normal [facility] Gastroenterology Visit Repor ton 06-06-2024 Gastroenterology Visit Report [facility] Gastroenterology [address] [place] [address] OFFICE VISIT Date of Service: 06/06/24 MR#: [id number] Acct: [id number] Name: ELIZABETH MODI Rep #: [id number] : 1940 Provider: GILL Jefferson Age/Sex: 83/M Location: [facility] Status: Signed Intake Vital Signs 01/11/24 07:47 [...] Denies bloody stools, N/V/C and abdominal pain. 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 alcohol intake: current alcohol intake frequency: a few times a month details: Prior heavier, now occasional. substance use type: does not use HPI HPI Chief Complaint: f/u. Details: ELIZABETH MODI, is a 83 M who presents to the office today for f/u. *[facility] hospitalization 12.14.22-12.17.22 for management of choledocholithiasis [...] MHD dila (more content not included)... Normal [facility] BCIDon 08-02-2023 Acinetobacter landon-baumanii complex Not detected Normal Not Detected [facility] ([place]) Comment on above: Performed By: #### B MARANDA #### [address] [address] Bacteroides fragilis Not detected Normal Not Detected [facility] ([place]) Comment on above: Performed By: #### B MARANDA #### [place] [address] BCID Comment See Comment Normal [facility] ([place]) Comment on above: Result Comment: Anti microbial resistance can occur via multiple mechanisms. A Not Detected result for antimicrobial resistance gene(s) does not indicate antimicrobial susceptibility. Culture identification and susceptibility results to follow. If BCID panel was negative (Not Detected) for all targets, this does not exclude a blood stream infection. Our blood culture system detected growth. Culture identification and susceptibility testing (if appropriate) to follow. Performed By: #### B MARANDA #### [place] [address] Megan albicans Not detected Normal Not Detected [facility] ([place]) Comment on above: Performed By: #### B MARANDA #### [address] [address] Megan auris Not detected Normal Not Detected [facility] ([place]) Comment on above: Performed By: #### B MARANDA #### [place] [id number] Megan glabrata Not detected Normal Not Detected [facility] ([place]) Comment on above: Performed By: #### B MARANDA #### [address] [address] Megan krusei Not detected Normal Not Detected [facility] ([place]) Comment on above: Performed By: #### B MARANDA #### [address] [id number] Megan parapsilosis Not detected Normal Not Detected [facility] ([place]) Comment on above: Performed By: #### B MARANDA #### [place] [id number] Megan tropicalis Not detected Normal Not Detected [facility] ([place]) Comment on above: Performed By: #### B MARANDA #### [place] [address] Cryptococcus neoformans-gattii Not detected Normal Not Detected [facility] ([place]) Comment on above: Performed By: #### B MARANDA #### [facility] [address] [place] [address] CTX-M (ESBL) Not Applicable Normal Not Detected [facility] ([place]) Comment on above: Performed By: #### B MARANDA #### [place] [address] E. Coli Not detected Normal Not Detected [facility] ([place] Comment on above: Performed By: #### B MARANDA #### [place] [address] Enterobacter cloacae Complex Not detected Normal Not Detected [facility] ([place] Comment on above: Performed By: #### B MARANDA #### [place] [address] Enterobacterales Not detected Normal Not Detected [facility] ([place] Comment on above: Performed By: #### B MARANDA #### [place] [address] Enterococcus faecalis Not detected Normal Not Detected [facility] ([place] Comment on above: Performed By: #### B MARANDA #### [place] [address] Enterococcus faecium Not detected Normal Not Detected [facility] ([place] Comment on above: Performed By: #### B MARANDA #### [place] [address] Haemophilus influenzae Not detected Normal Not Detected [facility] ([place] Comment on above: Performed By: #### B MARANDA #### [place] [address] IMP (Carbapenemase) Not Applicable Normal Not Detected [facility] ([place] Comment on above: Performed By: #### B MARANDA #### [place] [address] Klebsiella aerogenes Not detected Normal Not Detected [facility] ([place] Comment on above: Performed By: #### B MARANDA #### [place] [address] Klebsiella oxytoca Not detected Normal Not Detected [facility] ([place] Comment on above: Performed By: #### B MARANDA #### [address] [address] Klebsiella pneumoniae group Not detected Normal Not Detected [facility] ([place] Comment on above: Performed By: #### B MARANDA #### [place] [address] KPC (Carbapenemase) Not Applicable Normal Not Detected [facility] [place] Comment on above: Performed By: #### B MARANDA #### [place] [address] Listeria monocytogenes Not detected Normal Not Detected [facility] [place] Comment on above: Performed By: #### B MARANDA #### [place] [address] MCR-1 (Colistin Resistance) Not Applicable Normal Not Detected [facility] ([place] Comment on above: Performed By: #### B MARANDA #### [place] [address] Mec A/C Detected Abnormal Not Detected [facility] ([place] Comment on above: Performed By: #### B MARANDA #### [place] [address] Mec A/C-MREJ (MRSA) Not Applicable Normal Not Detected [facility] ([place] Comment on above: Performed By: #### B MARANDA #### [place] [address] NDM (Carbapenemase) Not Applicable Normal Not Detected [facility] [place] Comment on above: Performed By: #### B MARANDA #### [place] [address] Neisseria meningitidis (Encapsalated) Not detected Normal Not Detected [facility] ([place]) Comment on above: Performed By: #### B MARANDA #### [place] [address] OXA-48 like (Carbapenemase) Not Applicable Normal Not Detected [facility] ([place] Comment on above: Performed By: #### B MARANDA #### [address] [address] Proteus Not detected Normal Not Detected [facility] ([place] Comment on above: Performed By: #### B MARANDA #### [address] [address] Pseudomonas aeruginosa Not detected Normal Not Detected [facility] ([place] Comment on above: Performed By: #### B MARANDA #### [address] [address] S. agalactiae Org specific cx Ql (Vag fld) Not detected Normal Not Detected [facility] ([place] Comment on above: Performed By: #### B MARANDA #### [address] [address] Salmonella species Not detected Normal Not Detected [facility] ([place] Comment on above: Performed By: #### B MARANDA #### [place] [address] Serratia marcescens Not detected Normal Not Detected [facility] [place] Comment on above: Performed By: #### B MARANDA #### [place] [address] Staphylococcus Detected Abnormal Not Detected [facility] ([place] Comment on above: Performed By: #### B MARANDA #### [address] [address] Staphylococcus aureus Not detected Normal Not Detected [facility] ([place] Comment on above: Result Comment: If S taphylococcus aureus is Detected, an Infectious Disease physician consult is required on identification. Performed By: #### B MARANDA #### [address] [address] Staphylococcus epidermidis Detected Abnormal Not Detected [facility] ([place] Comment on above: Performed By: #### B MARANDA #### [address] [address] Staphylococcus lugdunensis Not detected Normal Not Detected [facility] [place] Comment on above: Performed By: #### B MARANDA #### [place] [address] Stenotrophomonas maltophilia Not detected Normal Not Detected [facility] [place] Comment on above: Performed By: #### B MARANDA #### [place] [address] Streptococcus Not detected Normal Not Detected [facility] [place] Comment on above: Performed By: #### B MARANDA #### [place] [address] Streptococcus pneumoniae Not detected Normal Not Detected [facility] ([place] Comment on above: Performed By: #### B MARANDA #### [place] [address] Streptococcus pyogenes Not detected Normal Not Detected [facility] ([place] Comment on above: Performed By: #### B MARANDA #### [place] [address] Van A/B Not Applicable Normal Not Detected [facility] ([place] Comment on above: Performed By: #### B MARANDA #### [place] [address] VIM (Carbapenemase) Not Applicable Normal Not Detected [facility] ([place] Comment on above: Performed By: #### B MARANDA #### [place] [address] Absolute lymphocyte countOrd ered By: Dwayne Palumbo on 02-08-2023 Lymphocytes Auto (Unsp spec) [#/Vol] 1.91 10*3/uL 0.83-4.51 [facility] Basophil percentageOrdered B y: Dwayne Palumbo on 02-08-2023 Basophils/100 WBC (Bld) 0.2 % 0-1 [facility] Bilirubin [Mass/Vol] 0.90 mg/dL 0.20-1.00 [facility] Comment on above: For patients on eltr ombopag therapy, use of Dimension [place] TBIL is not recommended. Chloride [Moles/Vol] 105 mmol/L 98-107 [facility] Eosinophils/100 WBC (Bld) 2.7 % 0-5 [facility] Glucose [Mass/Vol] 191 mg/dL 74-106 [facility] Comment on above: Fasting Glucose resu lt greater than or equal to 126 mg/dL suggests DIABETES MELLITUS per A.D.A. criteria. Neutrophils (Bld) [#/Vol] 7.0 10*3/uL 2.0-7.7 [facility] Neutrophils/100 WBC (Bld) 66.4 % 47-70 [facility] Potassium [Moles/Vol] 4.1 mmol/L 3.5-5.1 [facility] Protein [Mass/Vol] 8.0 g/dL 6.4-8.2 [facility] Sodium [Moles/Vol] 137 mmol/L 136-145 [facility] WBC (Bld) [#/Vol] 10.5 10*3/uL 4.4-11.0 [facility] Blood erythrocytes count (nu mber/volume)Ordered By: Dwayne Palumbo on 02-08-2023 RBC (Bld) [#/Vol] 4.64 10*6/uL 4.6-6.2 [facility] Blood hemoglobin measurement (mass/volume)Ordered By: Dwayne Palumbo on 02-08-2023 Hemoglobin (Bld) [Mass/Vol] 12.7 g/dL 13.0-16.5 [facility] Blood lymphocytes/100 leukoc ytesOrdered By: Dwayne Palumbo on 02-08-2023 Lymphocytes/100 WBC (Bld) 18.2 % 19-41 [facility] Blood monocytes/100 leukocyt esOrdered By: Dwayne Palumbo on 02-08-2023 Monocytes/100 WBC (Bld) 11.2 % 0-10 [facility] Blood platelet mean volumeOr dered By: Dwayne Palumbo on 02-08-2023 Platelet mean volume (Bld) [Entitic vol] 10.7 fL 6.2-12.0 [facility] Determination of erythrocyte mean corpuscular volume (MCV)Ordered By: Dwayne Palumbo on 02-08-2023 MCV (RBC) [Entitic vol] 86.6 fL 80-94 [facility] Hematocrit Auto (Bld) [Volum e fraction]Ordered By: Dwayne Palumbo on 02-08-2023 Hematocrit (Bld) [Volume fraction] 40.2 % 40-54 [facility] Laboratory - Chemistry and C hemistry - challengeOrdered By: Dwayne Palumbo on 02-08-2023 ALP [Catalytic activity/Vol] 122 U/L 45-117 [facility] ALT [Catalytic activity/Vol] 42 U/L 16-61 [facility] CO2 [Moles/Vol] 23.0 mmol/L 21.0-32.0 [facility] Globulin (S) [Mass/Vol] 4.6 g/dL 2.2-4.2 [facility] Urea nitrogen/Creatinine [Mass ratio] 25.7 mg/mg 10-20 [facility] Laboratory - Hematology and Cell countsOrdered By: Dwayne Palumbo on 02-08-2023 Erythrocyte distribution width (RBC) [Entitic vol] 50.7 fL 35.1-43.9 [facility] Erythrocyte distribution width (RBC) [Ratio] 16.1 % 11.6-14.6 [facility] Immature granulocytes/100 WBC (Bld) 1.300 % 0.0-0.9 [facility] Comment on above: IG% - Immature Granu locytes (promyelocytes, myelocytes and metamyelocytes) > 1% indicates that a LEFT SHIFT is Present. MCH (RBC) [Entitic mass] 27.4 pg 27.0-32.0 [facility] Nucleated RBC/100 WBC (Bld) [Ratio] 0 % 0-5 [facility] MCHC Auto (RBC) [Mass/Vol]Or dered By: Dwayne Palumbo on 02-08-2023 MCHC (RBC) [Mass/Vol] 31.6 g/dL 32-36 [facility] No Panel InformationOrdered By: Dwayne Palumbo on 02-08-2023 Estimated GFR (MDRD) Amer 46 mL/min >60 [facility] Comment on above: GFR Calc Estimated GFR (MDRD) Non-Af Amer 38 mL/min >60 [facility] Comment on above: Non- GFR Calc Platelets bldOrdered By: Edilson Palumbo on 02-08-2023 Platelets (Bld) [#/Vol] 275 10*3/uL 150-450 [facility] Serum or plasma albumin akash urement (mass/volume)Ordered By: Dwayne Palumbo on 02-08-2023 Albumin [Mass/Vol] 3.4 g/dL 3.2-5.0 [facility] Serum or plasma albumin/glob ulin mass ratioOrdered By: Dwayne Palumbo on 02-08-2023 Albumin/Globulin [Mass ratio] 0.7 {ratio} 0.9-2.4 [facility] Serum or plasma calcium akash urement (mass/volume)Ordered By: Dwayne Palumbo on 02-08-2023 Calcium [Mass/Vol] 9.4 mg/dL 8.5-10.1 [facility] Serum or plasma creatinine m easurement (mass/volume)Ordered By: Dwayne Palumbo on 02-08-2023 Creatinine [Mass/Vol] 1.83 mg/dL 0.70-1.30 [facility] Comment on above: The validity of the calculated GFR & GFRAA in patients over 70 years has not been determined. Clinical correlation is essential. Serum or plasma urea nitroge n measurement (mass/volume)Ordered By: Dwayne Palumbo on 02-08-2023 Urea nitrogen [Mass/Vol] 47 mg/dL 7-18 [facility] Thin prep Papanicolaou smear with manual screeningOrdered By: Dwayne Palumbo on 02-08-2023 Thin prep Papanicolaou smear with manual screening 30 U/L 15-37 [facility] Thin prep Papanicolaou smear with manual screening 9 5-15 [facility] Absolute lymphocyte countOrd ered By: Jesse Haywood on 12-17-2022 Lymphocytes Auto (Unsp spec) [#/Vol] 0.86 10*3/uL 0.83-4.51 [facility] Basophil percentageOrdered B y: Jesse Haywood on 12-17-2022 Basophils/100 WBC (Bld) 0.1 % 0-1 [facility] Chloride [Moles/Vol] 113 mmol/L 98-107 [facility] Eosinophils/100 WBC (Bld) 0.2 % 0-5 [facility] Glucose [Mass/Vol] 178 mg/dL 74-106 [facility] Comment on above: Fasting Glucose resu lt greater than or equal to 126 mg/dL suggests DIABETES MELLITUS per A.D.A. criteria. Neutrophils (Bld) [#/Vol] 8.2 10*3/uL 2.0-7.7 [facility] Neutrophils/100 WBC (Bld) 80.2 % 47-70 [facility] Potassium [Moles/Vol] 3.8 mmol/L 3.5-5.1 [facility] Sodium [Moles/Vol] 141 mmol/L 136-145 [facility] WBC (Bld) [#/Vol] 10.2 10*3/uL 4.4-11.0 [facility] Blood erythrocytes count (nu mber/volume)Ordered By: Jesse Haywood on 12-17-2022 RBC (Bld) [#/Vol] 3.91 10*6/uL 4.6-6.2 [facility] Blood hemoglobin measurement (mass/volume)Ordered By: Jesse Haywood on 12-17-2022 Hemoglobin (Bld) [Mass/Vol] 11.1 g/dL 13.0-16.5 [facility] Blood lymphocytes/100 leukoc ytesOrdered By: Jesse Haywood on 12-17-2022 Lymphocytes/100 WBC (Bld) 8.4 % 19-41 [facility] Blood monocytes/100 leukocyt esOrdered By: Jesse Haywood on 12-17-2022 Monocytes/100 WBC (Bld) 9.2 % 0-10 [facility] Blood platelet mean volumeOr dered By: Jesse Haywood on 12-17-2022 Platelet mean volume (Bld) [Entitic vol] 11.4 fL 6.2-12.0 [facility] Determination of erythrocyte mean corpuscular volume (MCV)Ordered By: Jesse Haywood on 12-17-2022 MCV (RBC) [Entitic vol] 87.7 fL 80-94 [facility] Glucose Glucometer (BldC) [M ass/Vol]Ordered By: Jesse Haywood on 12-17-2022 Glucose [Mass/Vol] 216 mg/dL 74-106 [facility] Comment on above: MANAGEMENT OF PATIEN T CARE PER NURSING PROTOCOL Hematocrit Auto (Bld) [Volum e fraction]Ordered By: Jesse Haywood on 12-17-2022 Hematocrit (Bld) [Volume fraction] 34.3 % 40-54 [facility] Laboratory - Chemistry and C hemistry - challengeOrdered By: Jesse Haywood on 12-17-2022 CO2 [Moles/Vol] 21.0 mmol/L 21.0-32.0 [facility] Urea nitrogen/Creatinine [Mass ratio] 30.1 mg/mg 10-20 [facility] Laboratory - Hematology and Cell countsOrdered By: Jesse Haywood on 12-17-2022 Erythrocyte distribution width (RBC) [Entitic vol] 47.4 fL 35.1-43.9 [facility] Erythrocyte distribution width (RBC) [Ratio] 14.7 % 11.6-14.6 [facility] Immature granulocytes/100 WBC (Bld) 1.900 % 0.0-0.9 [facility] Comment on above: IG% - Immature Granu locytes (promyelocytes, myelocytes and metamyelocytes) > 1% indicates that a LEFT SHIFT is Present. MCH (RBC) [Entitic mass] 28.4 pg 27.0-32.0 [facility] Nucleated RBC/100 WBC (Bld) [Ratio] 0 % 0-5 [facility] MCHC Auto (RBC) [Mass/Vol]Or dered By: Jesse Haywood on 12-17-2022 MCHC (RBC) [Mass/Vol] 32.4 g/dL 32-36 [facility] No Panel InformationOrdered By: Jesse Haywood on 12-17-2022 Estimated Creatinine Clearance Calc 34.17 ml/min [facility] Estimated GFR (MDRD) Amer 56 mL/min >60 [facility] Comment on above: GFR Calc Estimated GFR (MDRD) Non-Af Amer 47 mL/min >60 [facility] Comment on above: Non- GFR Calc Platelets bldOrdered By: Stephanie Haywood on 12-17-2022 Platelets (Bld) [#/Vol] 248 10*3/uL 150-450 [facility] Serum or plasma calcium akash urement (mass/volume)Ordered By: Jesse Haywood on 12-17-2022 Calcium [Mass/Vol] 8.0 mg/dL 8.5-10.1 [facility] Serum or plasma creatinine m easurement (mass/volume)Ordered By: Jesse Haywood on 12-17-2022 Creatinine [Mass/Vol] 1.53 mg/dL 0.70-1.30 [facility] Comment on above: The validity of the calculated GFR & GFRAA in patients over 70 years has not been determined. Clinical correlation is essential. Serum or plasma urea nitroge n measurement (mass/volume)Ordered By: Jesse Haywood on 12-17-2022 Urea nitrogen [Mass/Vol] 46 mg/dL 7-18 [facility] Thin prep Papanicolaou smear with manual screeningOrdered By: Jesse Haywood on 12-17-2022 Thin prep Papanicolaou smear with manual screening 7 5-15 [facility] Bacteria identified Anaer cx Nom (Unsp spec)Ordered By: Dwayne Palumbo on 12-16-2022 Anaerobic Culture Bacteroides vulgatus [facility] Bacteria identified Cx Nom ( Wound)Ordered By: Dwayne Palumbo on 12-16-2022 Wound Culture Escherichia coli [facility] Basophil percentageOrdered B y: Jesse Haywood on 12-16-2022 Bilirubin [Mass/Vol] 2.00 mg/dL 0.20-1.00 [facility] Comment on above: For patients on eltr ombopag therapy, use of Dimension [place] TBIL is not recommended. Protein [Mass/Vol] 6.4 g/dL 6.4-8.2 [facility] Gram stain for investigation of transfusion reactionOrdered By: Dwayne Palumbo on 12-16-2022 Microscopic observation Gram stain Nom (Unsp spec) [facility] INR in Blood by Coagulation assayOrdered By: Emmanuel Kohler on 12-16-2022 INR Coag (Bld) [Relative time] 1.3 {INR} [facility] Laboratory - Chemistry and C hemistry - challengeOrdered By: Jesse Haywood on 12-16-2022 ALP [Catalytic activity/Vol] 278 U/L 45-117 [facility] ALT [Catalytic activity/Vol] 132 U/L 16-61 [facility] Globulin (S) [Mass/Vol] 4.2 g/dL 2.2-4.2 [facility] Laboratory - CoagulationOrde red By: Emmanuel Kohler on 12-16-2022 PT Coag (PPP) [Time] 16.5 s 11.7-14.9 [facility] Serum or plasma albumin akash urement (mass/volume)Ordered By: Jesse Haywood on 12-16-2022 Albumin [Mass/Vol] 2.2 g/dL 3.2-5.0 [facility] Serum or plasma albumin/glob ulin mass ratioOrdered By: Jesse Haywood on 12-16-2022 Albumin/Globulin [Mass ratio] 0.5 {ratio} 0.9-2.4 [facility] Thin prep Papanicolaou smear with manual screeningOrdered By: Jesse Haywood on 12-16-2022 Thin prep Papanicolaou smear with manual screening 74 U/L 15-37 [facility] Blood manual differential co mment interpretation (narrative result)Ordered By: Jesse Haywood on 12-15-2022 Manual differential comment Ghassan (Bld) [Interp] COMMENT [facility] Comment on above: MONOCYTOSIS. Laboratory - CoagulationOrde red By: Jesse Wang on 12-15-2022 aPTT Coag (Bld) [Time] 38.5 s 24.1-36.2 [facility] No Panel InformationOrdered By: Jesse Wang on 12-15-2022 Thyroid Stimulating Hormone (TSH) 1.50 uIU/mL 0.358-3.74 [facility] Review by pathologistOrdered By: Jesse Haywood on 12-15-2022 Pathologist review Ghassan (Unsp spec) [Interp] Reviewed [facility] Comment on above: Previous reported re sult: Stacy noonan Edited by: [email or web address] on 12/15/22:1321Neutrophilic leukocytosis.Clinical correlation necessary.Raymond Knox M.D. 12/15/22 AMENDED REPORT 12/15/22 1321 PATH REV previously reported as: Stacy noonan Whole blood hemoglobin A1c/t otal hemoglobin ratio (mass fraction)Ordered By: Jesse Wang on 12-15-2022 HbA1c (Bld) [Mass fraction] 6.9 % 3.8-5.6 [facility] Comment on above: Normal < 5.7 % Predi abetic 5.7 - 6.4 % Diabetic >or= 6.5 % Please note range changes. BLOOD TB SCREENon 09-02-2022 M. tuberculosis tuberculin stim IFN-g Ql (Bld) Negative [facility] Mitogen minus Nil 5.42 IU/mL >=0.50 IU/mL [facility] TB Gamma Interpretation Infection with M . tuberculosis complex is unlikely. If latent tuberculosis infection is highly suspected, a negative result does not rule out the infection. Specimens from immunocompromised patients and those <5 years of age may show false negative results. In case of a contact investigation, please repeat 8-12 weeks after a known exposure. [facility] TB Nil 0.02 IU/mL <=8.00 IU/mL [facility] TB1 Ag minus Nil 0.00 IU/mL <0.35 IU/mL [facility] TB2 Ag minus Nil <0.35 IU/mL [facility] CBC W Auto Differential pane l (Bld)on 09-02-2022 Anisocytosis Ql (Bld) Present [facility] Basophils (Bld) [#/Vol] 0.00 10*3/uL <0.11 k/uL [facility] Basophils/100 WBC (Bld) 0.0 % [facility] Differential cell count method Nom (Bld) Manual [facility] Eosinophils (Bld) [#/Vol] 0.14 10*3/uL <0.46 k/ uL [facility] Eosinophils/100 WBC (Bld) 1.0 % [facility] Erythrocyte distribution width (RBC) [Ratio] 16.4 % High 11.5 - 15.0 % [facility] Hematocrit (Bld) [Volume fraction] 45.3 % 39.0 - 51.0 % [facility] Hemoglobin (Bld) [Mass/Vol] 14.4 g/dL 13.0 - 17.0 g/dL [facility] Lymphocytes (Bld) [#/Vol] 1.43 10*3/uL 1. 00 - 4.00 k/uL [facility] Lymphocytes/100 WBC (Bld) 10.0 % [facility] MCH (RBC) [Entitic mass] 29.9 pg 26. 0 - 34.0 pg [facility] MCHC (RBC) [Mass/Vol] 31.8 g/dL 30.5 - 36.0 g/dL [facility] MCV (RBC) [Entitic vol] 94.0 fL 80.0 - 100.0 fL [facility] [place] % 1.0 % [facility] Monocytes (Bld) [#/Vol] 1.00 10*3/uL High <0.87 k/uL [facility] Monocytes/100 WBC (Bld) 7.0 % [facility] Neutrophils (Bld) [#/Vol] 11.57 10*3/uL High 1 .45 - 7.50 k/uL [facility] Neutrophils/100 WBC (Bld) 81.0 % [facility] Nucleated RBC (Bld) [#/Vol] <0.01 k/uL [facility] Nucleated RBC/100 WBC (Bld) [Ratio] 0.0 /100 WBC [facility] Ovalocytes LM Ql (Bld) [facility] Platelet mean volume (Bld) [Entitic vol] 11.1 fL 9.0 - 12.7 fL [facility] Platelets (Bld) [#/Vol] 282 10*3/uL 150 - 400 k/uL [facility] Platelets Estimate (Bld) [#/Vol] Adequate [facility] Polychromasia LM Ql (Bld) Slight [facility] RBC (Bld) [#/Vol] 4.82 10*6/uL 4.20 - 6.0 0 m/uL [facility] Red Cell Morph Reviewed: see result s of individual morphologies [facility] WBC (Bld) [#/Vol] 14.29 10*3/uL High 3.70 - 11.00 k/uL [facility] WBC Left Shift Ql (Bld) Present [facility] [place] C-REACTIVE PROTEIN (CRP)on 0 09-01-2022 CRP [Mass/Vol] <0.9 mg/dL [facility] Comprehensive metabolic 2000 panelon 09-01-2022 Albumin [Mass/Vol] 4.0 g/dL 3.9 - 4.9 g/dL [facility] ALP [Catalytic activity/Vol] 88 U/L 38 - 113 U/L [facility] ALT [Catalytic activity/Vol] 19 U/L 10 - 54 U/L [facility] Anion gap [Moles/Vol] 11 mmol/L 9 - 18 mmol/L [facility] AST [Catalytic activity/Vol] 19 U/L 14 - 40 U/L [facility] Bilirubin [Mass/Vol] 0.5 mg/dL 0.2 - 1 .3 mg/dL [facility] Calcium [Mass/Vol] 9.4 mg/dL 8.5 - 10. 2 mg/dL [facility] Chloride [Moles/Vol] 106 mmol/L High 97 - 10 5 mmol/L [facility] CO2 [Moles/Vol] 21 mmol/L Low 22 - 30 mmol/L [facility] Creatinine [Mass/Vol] 2.01 mg/dL High 0.73 - 1.22 mg/dL [facility] Estimated Glomerular Filtration Rate 33 mL/min/1.73m Low >=60 mL/min/1.73 m [facility] Glucose [Mass/Vol] 146 mg/dL High 74 - 99 mg/dL [facility] Potassium [Moles/Vol] 4.5 mmol/L 3.7 - 5.1 mmol/L [facility] Protein [Mass/Vol] 7.2 g/dL 6.3 - 8.0 g/dL [facility] Sodium [Moles/Vol] 138 mmol/L 136 - 144 mmol/L [facility] Urea nitrogen [Mass/Vol] 50 mg/dL High 9 - 24 mg/dL [facility] ESR Westergren method (Bld) [Velocity]on 09-01-2022 ESR (Bld) [Velocity] 31 mm/h High 0 - 15 mm/hr [facility] VITAMIN D 25 HYDROXYon 09-01 25-hydroxyvitamin D3 [Mass/Vol] 27.8 ng/mL Low 31.0 - 80.0 ng/mL [facility] LABORATORYOrdered By: Michelle Gardner on 01-13-2022 Blood Glucose Testing Reason Routine (01/13/22 11:36 AM) [facility] Work Phone: Glucose [Mass/Vol] 101 mg/dL Invalid Interpretation Code 82 - 115 mg/dL [facility] Work Phone: Blood Glucose Testing Reason Routine (01/13/22 7:06 AM) [facility] Work Phone: Glucose [Mass/Vol] 87 mg/dL Invalid Interpretation Code 82 - 115 mg/dL [facility] Work Phone: LABORATORYOrdered By: SYSTEM SYSTEM on [...] Glucose Testing Reason Routine (01/12/22 8:59 PM) [facility] Work Phone: Glucose [Mass/Vol] 153 mg/dL Invalid Interpretation Code 82 - 115 mg/dL [facility] Work Phone: LABORATORYOrdered By: Adali Spencer on [...] Comment on above: Result Comment: [place] [address] FLU B PCR Negative 8 (01/12/22 10:33 AM) Invalid Interpretation Code Negative AH Auto Viro/Sero SS Comment on above: Result Comment: [place] s 80[address] Hospitalized Yes (01/12/22 10:33 AM) Invalid Interpretation [...] Comment on above: Result Comment: Note s 35440 SARS-CoV-2 (COVID-19) RNA ARIELLE+probe Ql (Unsp spec) Negative 6 (01/12/22 10:33 AM) Invalid Interpretation Code Negative AH Auto Viro/Sero SS Comment on above: Result Comment: Note s 22899 Symptomatic as Defined by CDC No (01/12/22 [...] % AH Workflow SS Eosinophils (Bld) [#/Vol] 0.1 103/mcL [...] Glucose Interventions Administered food/juice (01/06/22 8:38 AM) [facility] Work Phone: LABORATORYOrdered By: SYSTEM SYSTEM on [...] Interpretation Code BB Manual SS LABORATORYOrdered By: [employer]ee SYSTEM on 01-04-2022 Albumin BCP dye [Mass/Vol] [...] Code AH Auto Coag SS LABORATORYOrdered By: eZe Méndez on 01-03-2022 Hemoglobin.gastrointestin al 8th specimen [...] Blood Glucose Interventions Retest (12/30/21 8:53 AM) [facility] Work Phone: LABORATORYOrdered By: Rohan Rivero on [...] to increase blood sugar (12/30/21 8:32 AM) [facility] Work Phone: Hemoglobin A1con 08-04-2021 Glucose [Mass/Vol] 258 mg/dL Normal [facility] Reference Lab Comment on above: Performed By: #### H BA1C #### [facility] Routine Lab [address] [place], [place] [id number] HbA1c (Bld) [Mass fraction] 10.6 % High 4.3-5.6 [facility] Comment on above: Performed By: #### H BA1C #### [facility] Routine Lab [address] [place] [place], [place] [address] Glucose,Bedsideon 02-09-2021 Glucose [Mass/Vol] 185 mg/dL High 70-100 [facility] [employer] Comment on above: Result Comment: Test performed by glucose meter. Results may be 10%-15% lower than serum/plasma values. (CLIA ID [id number]) Performed By: #### B GLU #### [facility] [address] [place] [phone] Glucose [Mass/Vol] 284 mg/dL High 70-100 [facility] [employer] [facility] Comment on above: Result Comment: Test performed by glucose meter. Results may be 10%-15% lower than serum/plasma values. (CLIA ID [id number]) Performed By: #### B GLU #### [facility] [employer] [facility] [address] [place] [address] OPERATIVE REPORTOrdered By: 3m Scanning on 02-09-2021 [facility] Work Phone: Op Noteon 02-09-2021 Op Note [facility] l Dictation: Topical Anesthesia Note Patient Name: Elizabeth Modi : 1940 Date of Procedure: 02/09/2021 Surgeon: Ammy Vicente M.D. [employer] Machine Operator: Rachel Elder MD Anesthesia: Monitored Anesthesia Care [...] then created using a cystotome and utrata forceps.[place]wood-dissecti on and hydro-delineation were then performed. Phacoemulsification [...] or any other concerns. Operative Note Normal [facility] POCT GlucoseOrdered By: Gayatri Vicente on 02-09-2021 Glucose [Mass/Vol] 185 mg/dL High 70 - 100 mg/dL [facility] Work Phone: Comment on above: Test performed by [employer] ucose meter. Results may be 10%-15% lower than serum/plasma values. (CLIA ID [id number]) Interpretation and review of laboratory results Abnormal [facility] Work Phone: Test Performed by [facility], [address] [place] [address] [address] [facility] Work Phone: [facility] Work Phone: Glucose [Mass/Vol] 284 mg/dL High 70 - 100 mg/dL [facility] Work Phone: Comment on above: Test performed by [employer] ucose meter. Results may be 10%-15% lower than serum/plasma values. (CLIA ID [id number]) Interpretation and review of laboratory results Abnormal [facility] Work Phone: Test Performed by [facility], [address] [place] [address] [address] [facility] Work Phone: [facility] Work Phone: Hemoglobin A1con 12-03-2020 Glucose [Mass/Vol] 194 mg/dL Normal [facility] Reference Lab Comment on above: Performed By: #### H BA1C #### [facility] Routine Lab [address] [place], [place] [address] HbA1c (Bld) [Mass fraction] 8.4 % High 4.3-5.6 [facility] Comment on above: Performed By: #### H BA1C #### [facility] Routine Lab [address] [place], [place] [address] ECHOCARDIOGRAM LIMITED/FOLLO WUPon 11-13-2020 ECHOCARDIOGRAM LIMITED/FOLLOWUP ? [...] 06/08/2020, LV function has improved. Facility [facility] Patient Information Patient Name Elizabeth Modi [...] Role Read Date Dwayne Carrasco MD [facility] [place] 11/13/2020 Left Heart Measurements LV - Systole [...] patient's inability to turn. Imaging system used: [employer]. Exam Details Performed Procedure (more content not included)... Normal [facility] Hemoglobin A1con 09-10-2020 Glucose [Mass/Vol] 177 mg/dL Normal [facility] Reference Lab Comment on above: Performed By: #### H BA1C #### [facility] Routine Lab [address] [place] [place], [place] [address] HbA1c (Bld) [Mass fraction] 7.8 % High 4.3-5.6 [facility] Comment on above: Performed By: #### H BA1C #### [facility] Routine Lab [address] [place] [place], [place] [address] CNPYessenia 05-20-2020 CNPN Telephone (AGVASACC) ELIZABETH MODI ([id number]) 1940 M Date Time Provider Department 05/20/20 [...] disease) (HCC) [I73.9] 12/07/2019 Below knee amputation ([facility]) [S88.119A] 12/07/2019 Nonhealing surgical wound [T81.89XA] 12/09/2019 Encounter Status:Closed by ZOLTAN EWING on 05/20/20 [facility] JONAS Telephone (AGVASACC) ELIZABETH MODI ([id number]) 1940 M Date Time Provider Department 05/20/20 RYAN ALLEN During your visit today, we recorded the following information about you: Bren Santos 05/20/2020 2:52 PM Signed I have received a call from the daughter Angelic and she stated her father is in the hospital in [place] where he has had great toe removed [...] Encounter Status:Closed by BREN SANTOS on 05/21/20 [facility] PROGRESSon 05-18-2020 PROGRESS HNO ID: [id number] Author: Ryan Allen Service: ? Author Type: [...] depression - DM (diabetes mellitus) ([facility]) - Dyslipidemia - HTN (hypertension) - Hypothyroidism - PVD (peripheral vascular disease) ([facility]) - Renal mass PAST SURGICAL HISTORY Procedure [...] MG DAILY@0800 October 12, 2019 7:37am 10-12-2019 [facility] ([id number]) - gabapentin (NEURONTIN) 600 mg tablet Take [...] (I73.9) PVD (peripheral vascular disease) ([facility]) (E11.69) Type 2 diabetes mellitus with other specified complication, without long-term current use of insulin ([facility]) (S91.302A) Open wound of left foot with [...] this point. Given the state of the [facility] emergency room at this junction it may be better to have him seen locally at [facility] and see if some antibiotic therapy at least overnight might be worth a try. Possible transfer from there would depend on his stability and the bed availability here at [facility] There are no Patient Instructions on file for this visit. Ryan Allen MD [facility] Bas Metab 2000 Pnl SerPlon 1 07-15-2019 Anion gap [Moles/Vol] 13 mmol/L Normal 9-18 [facility] Comment on above: Order Comment: Speci men Type: BLOOD SPECIMEN Performed By: #### 2 4321-2 #### [facility] CLIA [id number] [address] [place] [address] Calcium [Mass/Vol] 9.8 mg/dL Normal 8.5-10.2 [facility] Comment on above: Order Comment: Speci men Type: BLOOD SPECIMEN Performed By: #### 2 4321-2 #### [facility] CLIA [id number] [address] [place] [address] Chloride [Moles/Vol] 102 mmol/L Normal 97-105 [facility] Comment on above: Order Comment: Speci men Type: BLOOD SPECIMEN Performed By: #### 2 4321-2 #### [facility] CLIA [id number] [address] [place] [address] CO2 [Moles/Vol] 24 mmol/L Normal 22-30 [facility] Comment on above: Order Comment: Speci men Type: BLOOD SPECIMEN Performed By: #### 2 4321-2 #### [facility] CLIA [id number] [address] [place] [address] Creatinine [Mass/Vol] 0.95 mg/dL Normal 0.73-1.22 [facility] Comment on above: Order Comment: Speci men Type: BLOOD SPECIMEN Performed By: #### 2 4321-2 #### [facility] CLIA [id number] [address] [place] [address] GFR/1.73 sq M.predicted MDRD (S/P/Bld) [Vol rate/Area] mL/min/{1.73_m2} [facility] Comment on above: Order Comment: [...] GFR. Performed By: #### 2 4321-2 #### [facility] CLIA [id number] [address] [place] [address] Glucose [Mass/Vol] 214 mg/dL High 74-99 [facility] Comment on above: Order Comment: Speci men Type: BLOOD SPECIMEN Result Comment: The [place] Diabetes Association (ADA) provides guidance for cutoff [...] Standards of Medical Care in Diabetes 2016, [place] Diabetes Association. Diabetes Care. 2016.39(Suppl 1). Performed By: #### 2 4321-2 #### [facility] CLIA [id number] [address] [place] [address] Potassium [Moles/Vol] 4.9 mmol/L Normal 3.7-5.1 [facility] Comment on above: Order Comment: Speci men Type: BLOOD SPECIMEN Performed By: #### 2 4321-2 #### [facility] CLIA [id number] [address] [place] [address] Sodium [Moles/Vol] 139 mmol/L Normal 136-144 [facility] Comment on above: Order Comment: Speci men Type: BLOOD SPECIMEN Performed By: #### 2 4321-2 #### [facility] CLIA [id number] [address] [place] [address] Urea nitrogen [Mass/Vol] 31 mg/dL High 9-24 [facility] Comment on above: Order Comment: Speci men Type: BLOOD SPECIMEN Performed By: #### 2 4321-2 #### [facility] CLIA [id number] [address] [place] [address] CBC (hemogram) Bld Autoon Erythrocyte distribution width (RBC) [Ratio] 12.8 % Normal 11.5-15.0 [facility] Comment on above: Order Comment: Speci men Type: BLOOD SPECIMEN Performed By: #### 5 8410-2 #### [facility] CLIA [id number] [address] [place] [address] Hematocrit (Bld) [Volume fraction] 43.5 % Normal 39.0-51.0 [facility] Comment on above: Order Comment: Speci men Type: BLOOD SPECIMEN Performed By: #### 5 8410-2 #### [facility] CLIA [id number] [address] [place] [address] Hemoglobin (Bld) [Mass/Vol] 14.1 g/dL Normal 13.0-17.0 [facility] Comment on above: Order Comment: Speci men Type: BLOOD SPECIMEN Performed By: #### 5 8410-2 #### [facility] CLIA [id number] [address] [place] [address] MCH (RBC) [Entitic mass] 29.5 pg Normal 26.0-34.0 [facility] Comment on above: Order Comment: Speci men Type: BLOOD SPECIMEN Performed By: #### 5 8410-2 #### [facility] CLIA [id number] [address] [place] [address] MCHC (RBC) [Mass/Vol] 32.4 g/dL Normal 30.5-36.0 [facility] Comment on above: Order Comment: Speci men Type: BLOOD SPECIMEN Performed By: #### 5 8410-2 #### [facility] CLIA [id number] [address] [place] [address] MCV (RBC) [Entitic vol] 91.0 fL Normal 80.0-100.0 [facility] Comment on above: Order Comment: Speci men Type: BLOOD SPECIMEN Performed By: #### 5 8410-2 #### [facility] CLIA [id number] [address] [place] [address] Nucleated RBC (Bld) [#/Vol] 10*3/uL Normal <0.01 [facility] Comment on above: Order Comment: Speci men Type: BLOOD SPECIMEN Performed By: #### 5 8410-2 #### [facility] CLIA [id number] [address] [place] [address] Platelet mean volume (Bld) [Entitic vol] 10.4 fL Normal 9.0-12.7 [facility] Comment on above: Order Comment: Speci men Type: BLOOD SPECIMEN Performed By: #### 5 8410-2 #### [facility] CLIA [id number] [address] [place] [address] Platelets (Bld) [#/Vol] 367 10*3/uL Normal 150-400 [facility] Comment on above: Order Comment: Speci men Type: BLOOD SPECIMEN Performed By: #### 5 8410-2 #### [facility] CLIA [id number] [address] [place] [address] RBC (Bld) [#/Vol] 4.78 10*6/uL Normal 4.20-6.00 [facility] Comment on above: Order Comment: Speci men Type: BLOOD SPECIMEN Performed By: #### 5 8410-2 #### [facility] CLIA [id number] [address] [place] [address] WBC (Bld) [#/Vol] 11.87 10*3/uL High 3.70-11.00 [facility] Comment on above: Order Comment: Speci men Type: BLOOD SPECIMEN Performed By: #### 5 8410-2 #### [facility] CLIA [id number] [address] [place] [address] [facility] 05-15-2020 CNPN Telephone (RUBYACC) ELIZABETH MODI ([id number]) 1940 M Date Time Provider Department 05/15/20 [...] Allergies) Date Reviewed: 05/15/2020 Reviewed by: Sunshine ([facility]) Kimberly - Fully Assessed Reason for [...] by MARIA ESTHER GUSMAN CNP on 05/19/20 [facility] HGB A1Con 05-15-2020 Average glucose Estimated from glycated hemoglobin mass conc (Bld) 189 mg/dL [facility] Comment on above: Order Comment: Speci men Type: BLOOD SPECIMEN Result Comment: eAG: (Estimated average glucose) is a calculated value from HgbA1c and is sales and merchandising representative of the average blood glucose level in the last 2-3 month period. Performed By: #### H BA1C ####[facility] [id number] [place] [address] HbA1c (Bld) [Mass fraction] 8.2 % High [...] of diabetes. Performed By: #### H BA1C ####[facility] [id number] [place] [id number] HISTORY PHYSICALon 0 HISTORY PHYSICAL HNO ID: [id number] Author: Sunshine Harris Service: ? Author Type: [...] Moderate Degree (Hcc) Pvd (Peripheral Vascular Disease) ([facility]) Below Knee Amputation (Hcc) Nonhealing [...] depression - DM (diabetes mellitus) ([facility]) - Dyslipidemia - HTN (hypertension) - Hypothyroidism - PVD (peripheral vascular disease) ([facility]) PAST SURGICAL HISTORY Procedure Laterality Date - [...] MG DAILY@0800 October 12, 2019 7:37am 10-12-2019 [facility] ([id number]) Taking Yes gabapentin (NEURONTIN) 600 mg tablet [...] CP and palpitations. No h/o of CHF, CO, Cardiac Sx, cardiac stents, PPM/AICD. +HTN, HLD, PVD GI: Denies abd pain and N/V/D. Denies esophogeal varices. Denies diarrhea, constipation, bloody or black/tarry stools. : Denies dysuria, urgency, hematuria, or frequency. Denies h/o kidney stones. +kidney spot being monitored Endocrine: Denies h/o of steroid [...] 91 Temp 97.5 Resp 18 Ht 5' 10 (1.78m) Wt 194 lb (88.0kg) SpO2 98% [...] managed by PCP. no recent A1C in [facility], most recent BG check from 12/11/2019 was 126. will get A1C at [facility] Former Smoker- quit in 1989, [...] COVID, ECG, PT, CBC, BMP ordered in [facility] per surgeon. CONSULTS: No consults pending. Instructions Given to Patient: Patient given verbal and written preop instructions and voices comprehension and compliance. Antimicrobial soap and instructions given to patient. SIGNATURE: Sunshine Harris APRN.GURWINDER PATIENT NAME: Elizabeth Modi DATE: May 13, 2020 TIME: 3:32 PM PAGER/CONTACT #: Mela [facility] PT Pnl PPPon 05-15-2020 INR Coag (PPP) [Relative time] 1.0 {INR} Normal 0.9-1.3 [facility] Comment on above: Order Comment: Speci men Type: BLOOD SPECIMEN Result Comment: Radha min K Antagonist (VKA) Therapeutic Range: INR 2 to 3 (Target INR of 2.5) Note: For patients treated with VKA drugs, such as warfarin, the [place] [employer] 2012 Guideline recommends [...] Chest 2012, 141:7S-47S Dada RA, et al. [facility] 2017, 70: 252-289 Performed By: #### 3 4528-0 #### [facility] CLIA [id number] [address] [place] [address] PT Coag (PPP) [Time] 10.6 s Normal 9.7-13.0 [facility] Comment on above: Order Comment: Speci men Type: BLOOD SPECIMEN Performed By: #### 3 4528-0 #### [facility] CLIA [id number] [address] [place] [address] PT EDon 05-13-2020 PT ED HNO ID: [id number] Author: Jeni Izquierdo) KAVIN Shoemaker Service: ? [...] [facility] PROGRESSon 04-29-2020 PROGRESS HNO ID: [id number] Author: Ryan Allen Service: ? Author Type: Physician Type: Progress Notes Filed: 04/29/2020 7:08 PM Note Text: This note was partially generated using [employer] voice recognition system. I spent 15+ minutes in the visit, with more than 50% of the total hxef-fx-rncz time of the visit in counseling / [...] patient is currently taking aspirin: Yes Normal [facility] CNOVon 04-28-2020 [facility] Office Visit (AGVASACC) ELIZABETH MODI ([id number]) 1940 M Date Time Provider Department 04/28/20 11:00 AM RYAN ALLEN AGJERZY During your visit today, we recorded the following information about you: Temperature Blood pressure Weight Height 80 degrees 134/60 88 kg 1.778 m Ryan Allen MD 04/29/2020 7:08 PM Signed This note was partially generated using [employer] voice recognition system. I spent 15+ minutes in the visit, with more than 50% of the total awic-zk-vmwa time of the visit in counseling / [...] Visit Diagnosis:PVD (peripheral vascular disease) ([facility]) [I73.9] Other Visit Diagnoses:Nonhealing nonsurgical wound [T14.8XXA] [...] 08/22/2019 PVD (peripheral vascular disease) ([facility]) [I73.9] 12/07/2019 Below knee amputation (HCC) [S88.119A] 12/07/2019 Nonhealing surgical wound [T81.89XA] 12/09/2019 Disposition: Return in about 4 weeks (around 05/26/2020). Follow-up and Disposition History Recorded Letter Text Encounter Status:Closed by RYAN ALLEN MD on 04/29/20 [facility] Beau 04-28-2020 JONAS Telephone (AGStunnACC) ELIZABETH MODI ([id number]) 1940 M Date Time Provider Department 04/28/20 [...] Covid is 05/23/20 @ 1130 am at [facility] Post OP is 06/23/20 @ 10 am with Devin Mailed 04/30/20 shaila Lambert has been notified of dates and times. Allergies As of Date: 04/28/2020 (No Known Allergies) Date Reviewed: 04/28/2020 Reviewed by: Luke Alfaro) Austin - Fully Assessed Reason for Visit: Schedule Surgery [1330] Primary Visit Diagnosis:PVD (peripheral vascular disease) (HCC) [I73.9] Order(s):SURGICAL REQUEST - ELECTIVE (01/2020) [8886702] Order #: [id number]: 1 HANDP FOR SURGERY [F5219APC] Order #: [id number] PRE-PROCEDURE AND PRE-OPERATIVE COVID [SQPOCOVD] Order #: [id number] FUTURE CBC [SQCBC] Order #: [id number] FUTURE BASIC METABOLIC PNL [SQBMP] Order #: [id number] FUTURE PROTHROMBIN TIME/PT [SQPT] Order #: [id number] FUTURE ECG COMPLETE [ECG01] Order #: [id number] FUTURE Prescriptions as of 04/28/2020 Sig: ASPIRIN [...] 08/22/2019 PVD (peripheral vascular disease) ([facility]) [I73.9] 12/07/2019 Below knee amputation (HCC) [S88.119A] 12/07/2019 Nonhealing surgical wound [T81.89XA] 12/09/2019 Encounter Status:Closed by MARIA ESTHER GUSMAN CNP on 04/28/20 [facility] CNOVon 04-21-2020 [facility] Office Visit (AKURFL ) ELIZABETH MODI ([id number]) 1940 M Date Time Provider Department 04/21/20 1:30 PM YADI WHITE During your visit today, we recorded the following information about you: Weight Height 88 kg 1.778 m Yadi White DO, MBA 04/21/2020 3:13 PM Signed ?? [facility] [place] [facility] LOCATION: [address] [place] [address] NEW CONSULT VISIT PATIENT INFO: Elizabeth Modi [...] MG DAILY@0800 October 12, 2019 7:37am 10-12-2019 [facility] ([id number]) gabapentin (NEURONTIN) 600 mg tablet Take 600 [...] negative. PHYSICAL EXAMINATION Ht 177.8 cm (5' 10) Wt 88 kg (194 lb) BMI 27.84 [...] with more than 50% of the total pmpa-hu-tans time of the visit in counseling / coordination of care. Yadi White DO MBA Letter to: Dexter Reyes MD Referring Provider: DEXTER REYES [facility] [[id number]] Allergies As of Date: 04/21/2020 (No Known Allergies) Date Reviewed: 04/21/2020 Reviewed by: Yadi White - Fully Assessed Reason for Visit: Kidney Problem [61] Visit Diagnosis:Other specified disorders of kidney and ureter [N28.89] Order(s):CT KIDNEY WO/W IVCON [5616391] Order #: [id number] FUTURE iv contrast (will be provided with [...] Encounter Status:Closed by YADI WHITE on 04/21/20 [facility] PROGRESSon 04-21-2020 PROGRESS HNO ID: [id number] Author: Yadi White Service: ? Author Type: Physician Type: Progress Notes Filed: 04/21/2020 3:13 PM Note Text: ?? [facility] [place] [facility] LOCATION: [address] [place] [address] NEW CONSULT VISIT PATIENT INFO: Elizabeth Modi [...] MG DAILY@0800 October 12, 2019 7:37am 10-12-2019 [facility] ([id number]) gabapentin (NEURONTIN) 600 mg tablet Take 600 [...] negative. PHYSICAL EXAMINATION Ht 177.8 cm (5' 10) Wt 88 kg (194 lb) BMI 27.84 [...] with more than 50% of the total uucq-og-uvru time of the visit in counseling / coordination of care. Yadi White DO MBA Letter to: Dexter [facility]yes [facility] Office Visit (AGVASACC) ELIZABETH MODI ([id number]) 1940 M Date Time Provider Department 03/31/20 11:00 AM RYAN ALLEN During your visit today, we recorded the following information about you: Pulse Respiration Blood pressure Weight 78/minute 18/minute 124/70 88 kg Height 1.778 m Ryan Allen MD 03/31/2020 12:50 PM Signed I spent 15+ minutes in the visit, with more than 50% of+ the total aiyy-cc-waya time of the visit in counseling / coordination of care. This note partially generated using [employer] voice recognition system. Mr. Modi and his daughter were seen in the office today for follow-up of his peripheral vascular disease. He's feeling up a complicated wound in the right below-knee stump but also has a left great toe nonhealing wound. I believe this is being followed by the flatwork catcher or the wound care center in the [facility]. He also notes that the prosthetic company is having trouble getting appropriate authorization for his prosthesis. Since the patient left I have call that office, [facility] [employer]. We have left a message from then [...] appropriate authorization for were reviewed needs from [employer]. He has had a urologist in the past but can't remember the name in the [facility]. I would refer to the primary care office if they feel appropriate urologist is available locally in this patient. If not we will be happy to refer to a urologist in the [facility]. Hopefully within the next few [...] Reason for Visit: Peripheral Vascular Disease (PVD) [0977] Cmt: Elizabeth is here to review 02/28/20 [...] Status:Closed by RYAN ALLEN MD on 03/31/20 [facility] PROGRESSon 03-31-2020 PROGRESS HNO ID: [id number] Author: Ryan Allen Service: ? Author Type: Physician Type: Progress Notes Filed: 03/31/2020 12:50 PM Note Text: I spent 15+ minutes in the visit, with more than 50% of+ the total dqeu-vq-lolx time of the visit in counseling / coordination of care. This note partially generated using BlackBamboozStudio voice recognition system. Mr. Modi and his daughter were seen in the office today for follow-up of his peripheral vascular disease. He's feeling up a complicated wound in the right below-knee stump but also has a left great toe nonhealing wound. I believe this is being followed by the flatwork catcher or the wound care center in the [facility]. He also notes that the prosthetic company is having trouble getting appropriate authorization for his prosthesis. Since the patient left I have call that office, [facility] [employer]. We have left a message from then [...] appropriate authorization for were reviewed needs from [employer]. He has had a urologist in the past but can't remember the name in the [facility]. I would refer to the primary care office if they feel appropriate urologist is available locally in this patient. If not we will be happy to refer to a urologist in the [facility]. Hopefully within the next few [...] aspirin medications. Normal [facility] CNPNon 03-04-2020 CNPN Telephone (AGStunnACC) ELIZABETH MODI ([id number]) 1940 M Date Time Provider Department 03/04/20 RYAN ALLEN AGBLAIRACC During your visit today, we recorded the following information about you: Ludivina Clement 03/04/2020 1:03 PM Signed Called and spoke [...] disease) (HCC) [I73.9] 12/07/2019 Below knee amputation ([facility]) [S88.119A] 12/07/2019 Nonhealing surgical wound [T81.89XA] 12/09/2019 Encounter Status:Closed by GARRICKBOYD LUDIVINA on 03/04/20 Normal [facility] CTA ABD/PEL/LOWER EXT WO/W I VCONon 02-28-2020 CTA ABD/PEL/LOWER EXT WO/W IVCON Final Report DATE OF EXAM: Feb 28 2020 4:00PM [facility] 0465 - CTA ABD/PEL/LOWER EXT WO/W IVCON / PROCEDURE REASON: multiple diagnoses Physician Interpretation EXAMINATION: CTA ABD/PEL/LOWER EXT WO/W IVCON Exam Date: 02/28/2020 4:00 PM CLINICAL HISTORY: Ischemia of lower extremity PVD (peripheral vascular disease) ([facility]) Technique: Helical CT of the abdomen, pelvis [...] renal protocol CT or MRI. 2. Right thwmb-mle-lbpe amputation. No subcutaneous fat stranding or fluid collection. Other chronic findings, as above. Resolution Expert: ONEL Transcribe Date/Time: Mar 02 2020 2:59P Dictated by : ANDRE BUI MD This examination was interpreted and the report reviewed and electronically signed by: ANDRE BUI MD on Mar 02 2020 3:31PM EST Normal [facility] CNOVon 02-13-2020 CN Office Visit (AGVASACC) ELIZABETH MODI ([id number]) 1940 M Date Time Provider Department 02/13/20 1:30 PM MARIA ESTHER GUSMAN (CLINICAL SPECIALIST, GURWINDER)LUCRECIA During your visit today, we recorded the following information about you: Pulse Respiration Blood pressure Weight 76/minute 18/minute 118/64 88 kg Height 1.778 m Maria Esther Gusman APRN.GURWINDER, CLINIC CHARGE NURSE 02/13/2020 4:20 PM Signed Elizabeth Modi 79 [...] He has not been in contact with [employer] in some time, as he was advised to wait until cleared from the wound vac. Additionally, he reports that he's been seeing a prevention specialist for the wounds on his left [...] Stable post op; OK to follow-up with [employer] for RLE prosthetic; Will discuss with Dr. Allen plan for evaluation/treatment of LLE with continued wounds. PLAN: Will proceed with CTA to further evaluation LLE at this time. Pt encouraged to call with any questions, problems, concerns, or changes. The patient is currently taking a statin: Yes The patient is currently taking aspirin: Yes Maria Esther Gusman APRN.CLINIC CHARGE NURSE Referring Provider: SELF [200] Allergies As of [...] [I99.8] Order(s):CTA ABD/PEL LOWER EXTREM WO/W IVCON [3551514] Order #: [id number] FUTURE iv contrast (will be provided with [...] EachRfl: 0 CREATININE BLD [SQCRET] Order #: [id number] FUTURE Prescriptions as of 02/13/2020 Sig: INSULIN [...] by MARIA ESTHER GUSMAN CNP on 02/13/20 [facility] PROGRESSon 02-13-2020 PROGRESS HNO ID: [id number] Author: Maria Esther (Entry Level Assistant Manager Remelt Furnace Expediter) GURWINDER Gusman Service: ? Author Type: Nurse [...] He has not been in contact with [employer] in some time, as he was advised to wait until cleared from the wound vac. Additionally, he reports that he's been seeing a prevention specialist for the wounds on his left [...] Stable post op; [facility]; Will discuss with Dr. Allen plan for evaluation/treatment of LLE with continued wounds. PLAN: Will proceed with CTA to further evaluation LLE at this time. Pt encouraged to call with any questions, problems, concerns, or changes. The patient is currently taking a statin: Yes The patient is currently taking aspirin: Yes Maria Esther Gusman APRN.GURWINDER [facility] Beau 02-05-2020 JONAS Telephone (AGStunnACC) ELIZABETH MODI ([id number]) 1940 M Date Time Provider Department 02/05/20 RYAN ALLEN During your visit today, we recorded the following information about you: Luke Pérez LPN 02/05/2020 10:51 AM Signed Millie from [facility] called stating that there has been [...] 02/05/2020 11:24 AM Signed Relayed information to [facility] nurse. Acknowledged new order for wet [...] Status:Closed by LUKE PÉREZ LPN on 02/05/20 [facility] CNOVon 01-08-2020 CNOV Office Visit (RUBYACC) ELIZABETH MODI ([id number]) 1940 M Date Time Provider Department 01/08/20 3:30 PM RYAN ALLEN During your visit today, we recorded the following information about you: Pulse Respiration Blood pressure Weight 78/minute 18/minute 126/70 88.9 kg Height 1.778 m Ryan Allen MD 01/08/2020 4:01 PM Signed This note was partially generated using BlackBamboozStudio voice recognition system. Is a postop visit [...] Visit Diagnosis:PVD (peripheral vascular disease) ([facility]) [I73.9] Prescriptions as of 01/08/2020 Sig: INSULIN [...] disease) (HCC) [I73.9] 12/07/2019 Below knee amputation ([facility]) [S88.119A] 12/07/2019 Nonhealing surgical wound [T81.89XA] 12/09/2019 Disposition: Return in about 4 weeks (around 02/05/2020). Follow-up and Disposition History Recorded Letter Text Encounter Status:Closed by RYAN ALLEN MD [facility] Telephone (LUCRECIA) ELIZABETH MODI ([id number]) 1940 M Date Time Provider Department 01/08/20 RYAN ALLEN During your visit today, we recorded the following information about you: Luke Pérez LPN 01/08/2020 1:18 PM Signed Millie [facility] nurse called to let us know [...] by MARIA ESTHER GUSMAN CNP on 01/08/20 [facility] PROGRESSon 01-08-2020 PROGRESS HNO ID: [id number] Author: Ryan Allen Service: ? Author Type: Physician Type: Progress Notes Filed: 01/08/2020 4:01 PM Note Text: This note was partially generated using Dragon voice recognition system. Is a postop visit [...] continues to make progress with wound. Normal [facility] CASE MANAGEMon 12-11-2019 CASE MANAGEM HNO ID: [id number] Author: Tami (Rn) KAVIN Patricio Service: Care Management Author Type: Registered Nurse Type: Care Mgt Progress Note Filed: 12/11/2019 3:28 PM Note Text: CARE MANAGEMENT DISCHARGE NOTE SERVICE DATE: 12/11/2019 SERVICE TIME: 3:27 PM LOS: 2 days Admission Date: 12/09/2019 DISCHARGE ARRANGEMENT (list agency and phone number) Discharge Arrangement: Home Assisted Care: Nursing;OT;PT Provider Name: [facility] Phone: . CAREGIVER ASSESSMENT: Caregiver is ready, willing and able to meet the patient's needs as recommended by the inter-professional team:: Yes Does the patient have an acute stroke diagnosis, or has the patient had a stroke during this admission?: No Patient's transition needs and plan for meeting these needs[facility] HANDOFF COMMUNICATION: TRANSPORTATION ARRANGEMENTS: Transportation Arrangements: Car ADDITIONAL CONTACT RESOURCES: Pts wound vac approved through [facility]. SIGNATURE: Tami Patricio RN PATIENT NAME: Elizabeth Modi DATE: December 11, 2019 TIME: 3:27 PM PAGER/CONTACT #: [phone] [facility] CONSULT PROGon 12-11-2019 CONSULT PROG HNO ID: [id number] Author: Adali Murry Service: Wound Care Team Author Type: Nurse Specialist Type: Consult Progress Note Filed: 12/11/2019 2:39 PM Note Text: WOUND CARE CONSULT CLINICAL SPECIALIST NOTE SERVICE DATE: 12/11/2019 SERVICE TIME: 1315 TIME SPENT (minutes): 45 REASON FOR CONSULT: Eval R BKA, wound vac change CHIEF COMPLAINT: c/o open wound to R lateral BKA Subjective HISTORY OF PRESENT ILLNESS: Mr. Modi is a 79 year old male who is seen today with S Gasper Wound/irrigation district manager, and presented to hospital w/ R [...] (Oral) Resp 18 Ht 177.8 cm (5' 10) Wt 88 kg (193 lb 14.4 oz) [...] found under the Get Images tab on Quantitative Medicine. Photos are uploaded by the wound senior care manager and may not be immediately available for viewing. Contact the wound and ostomy care department with questions. SIGNATURE: Adali Murry APRN.CNS PATIENT NAME: Elizabeth Modi DATE: December 11, 2019 TIME: 2:24 PM CONTACT#: [id number] Normal [facility] Glucose Meteron 12-11-2019 Glucose [Mass/Vol] 126 mg/dL High 70-99 [facility] Comment on above: Result Comment: KAVIN Briones OTIFIED Performed By: #### M AG #### [facility] [address] [place] [address] OPERATIVE NOon 12-11-2019 OPERATIVE NO HNO ID: [id number] Author: Ryan Allen Service: ? Author Type: Physician Type: Operative Report Filed: 12/11/2019 1:51 PM Note Text: [facility] - Operative Report ELIZABETH MODI : 1940 AGE: 79. SEX: M PATIENT TYPE: I HOSP SV: [place] LOCATION: [facility] ATTENDING PHYSICIAN: RYAN ALLEN CSN NUMBER: [id number] DATE OF SURGERY/PROCEDURE: 12/09/2019 INCISION/PROCEDURE START TIME: 10:54 AM INCISION CLOSE/PROCEDURE END TIME: 11:10 AM PREOPERATIVE DIAGNOSIS: Nonhealing wound, status post right below-knee amputation. POSTOPERATIVE DIAGNOSIS: Nonhealing wound, status post right below-knee amputation. SURGEON: Ryan Allen MD, FACS INDUSTRIAL ROOFER: 1. Sunny Brito MD. 2. Mara Godinez [...] his followup, he was seen at the [facility] office in [place] by Dr. Gordo Figueroa and it was [...] satisfactory postoperative condition. Ryan Allen MD, FACS RGN:[id number] /[id number] cc:Macho Reyes MD [facility] PLAN OF CAREon 12-11-2019 PLAN OF CARE HNO ID: [id number] Author: Olga Parekh (Trampoline Team Coach) Service: ? Author Type: ? Type: Plan of Care Filed: 12/11/2019 11:33 AM Note Text: STUDENT DEVELOPMENT SPECIALIST BEDSIDE DELIVERY SURVEY 1. Patient to use [facility] Bedside Delivery - YES Insurance Information as follows: 2. Insurance card on file - YES 3. Credit card for payment - N/A Please call pharmacy bedside delivery at [phone] or [phone] if patient would like medications filled and delivered prior to discharge. Olga Parekh (Trampoline Team Coach) [facility] PROGRESSon 12-11-2019 PROGRESS HNO ID: [id number] Author: Rohan Duran DO Service: Vascular Surgery [...] questions or concerns Mon-Fri 6a-5p please page [phone]. After 5pm and on Weekends and Holidays, please page [phone] if in ICU or [phone] if on RNF. Subjective SUBJECTIVE: NAEON. Did [...] (Oral) Resp 17 Ht 177.8 cm (5' 10) Wt 88.2 kg (194 lb 6.4 oz) SpO2 100% BMI 27.89 kg/m? O2 Therapy: Room Air IANDO: Date 12/10/19699 - 12/11/1958 12/11/19699 - 12/12/1958 Shift 9670-9259 9410-3873 5406-0582 24 Hour Total 0629-7052 3235-6921 6175-0956 24 Hour Total INTAKE Shift Total OUTPUT Urine 013 796 9136 Void (ml) 955 959 8020 Drains 0 0 Negative Pressure: Output (mL) 0 0 # of BMs Number of BMs 1 x 1 x Shift Total 952 524 6997 Weight (kg) 88.2 88.2 88.2 88.2 88.2 [...] PT EDon 12-11-2019 PT ED HNO ID: [id number] Author: Isac Navarro (Pharmacist) Service: Pharmacy Author [...] THERAPY NTon 12-11-2019 THERAPY NT HNO ID: [id number] Author: Maricarmen SantiagoOtr/Vickie Good Service: Occupational Therapy Author Type: Occupational Therapist Type: Therapy (PT/OT/Speech/Resp) Filed: 12/11/2019 3:31 PM Note Text: Occupational Therapy Evaluation SERVICE DATE: 12/11/2019 SERVICE TIME: 1435 to 1459 ROOM: [place] [address] Recommended Discharge Disposition: Home OT Recommended Discharge [...] living (ADL) Interventions Provided: Evaluation $ Evaluation-Moderate (14703) Billed Units: 1 unit OT Evaluation Moderate [...] [facility] THERAPY NT HNO ID: [id number] Author: Marilyn Flores Service: Physical Therapy Author Type: Physical Therapist Type: Therapy (PT/OT/Speech/Resp) Filed: 12/11/2019 2:48 PM Note Text: Physical Therapy Evaluation SERVICE DATE: 12/11/2019 SERVICE TIME: 1341 to 1408 ROOM: [place] [address] Recommended Discharge Disposition: Home PT Recommended Discharge [...] Difficulty walking-musculoskeleta l Interventions Provided: Evaluation;Therapeutic Activity (40524) $ Evaluation-Moderate (50117) Billed Units: 1 unit History and examination of body systems see assessment section above. This patient?s clinical presentation is evolving. The patient required a moderate complexity evaluation. Therapeutic Activity (45953) Treatment Minutes: 11 1 unit Skilled Intervention(s): [...] [facility] Basic Metabolic Panelon 06-2 Anion gap [Moles/Vol] 13 mmol/L Normal 9-18 [facility] Comment on above: Performed By: #### C BC1 #### [facility] [address] [place], [place] [address] Calcium [Mass/Vol] 9.0 mg/dL Normal 8.5-10.2 [facility] Comment on above: Performed By: #### C BC1 #### [facility] [address] [place], [place] [address] Chloride [Moles/Vol] 100 mmol/L Normal 97-105 [facility] Comment on above: Performed By: #### C BC1 #### [facility] [address] [place], [place] [address] CO2 Blood 25 mmol/L Normal 22-30 [facility] Comment on above: Performed By: #### C BC1 #### [facility] [address] [place], [place] [address] Creatinine [Mass/Vol] 1.14 mg/dL Normal 0.73-1.22 [facility] Comment on above: Performed By: #### C BC1 #### [facility] [address] [place], [place] [address] Glucose [Mass/Vol] 113 mg/dL High 74-99 [facility] Comment on above: Result Comment: The [place] Diabetes Association (ADA) provides guidance for cutoff [...] Standards of Medical Care in Diabetes 2016; [place] Diabetes Association. Diabetes Care. 2016;39(Suppl 1). Performed By: #### C BC1 #### [facility] [address] [place], [place] [address] Potassium [Moles/Vol] 4.1 mmol/L Normal 3.7-5.1 [facility] Comment on above: Performed By: #### C BC1 #### [facility] [address] [place], [place] [address] Sodium [Moles/Vol] 138 mmol/L Normal 136-144 [facility] Comment on above: Performed By: #### C BC1 #### [facility] [address] [place], [place] [address] Urea nitrogen [Mass/Vol] 22 mg/dL Normal 9-24 [facility] Comment on above: Performed By: #### C BC1 #### [facility] [address] [place], [place] [address] CASE MGT INIT ASSESon 2019 CASE MGT INIT ASSES HNO ID: [id number] Author: Tami Izquierdo) KAVIN Patricio Service: Care Management Author Type: Registered Nurse Type: Care Mgt Initial Assessment Filed: 12/10/2019 10:48 AM Note Text: CARE MANAGEMENT: ASSESSMENT AND DISCHARGE PLAN SERVICE DATE: December 10, 2019 SERVICE TIME: 10:47 AM PRIMARY CARE PHYSICIAN: Dexter Reyes MD ADMISSION STATUS: Inpatient Needs Prior to Discharge: Home Care [facility] Patient/Pipe And Test Supervisor Stated Goals: To have reduction in symptoms Health Insurance: [employer] Issues Impacting Discharge Plan: None Last Discharge Date: 09/11/19 Is this Within the Past 30 days? Last discharge within 30 days: No Advance Directive: Current Advance Directive: Health Care Power of Principal Trainer In Chart: No Data Entry Technician Attempted to Assist with AD Completion: No [...] Services or Home Care?: Home Health Care Agency([facility]vant[facility]) Equipment Prior to Admission: Wheelchair;Other: See Comment(Electric [...] Mostly I feel financially burdened by my pvb-ue-gjuhih expenses for my prescription medication:: 0 - Disagree Somewhat Risk Score: 0 Patient is categorized as: Low risk < 2 Are you interested in bedside delivery of your medications? No Is Patient Psychosocially Complex?: No ASSESSMENT AND PLAN: Medical Needs: Medical Needs: Two or more chronic diseases Psychosocial Needs: Psychosocial Needs: None FREEDOM OF CHOICE EXPLAINED: [place] of Choice Given: Yes(Pt would like to resume hhc with [facility].) POTENTIAL TRANSITION PLANS Home Care Spoke with pt at the bedside. Pt states that he has been staying with his daughter. Active with [facility]. [facility] Pt will need wound vac at d/c- script placed on chart to be signed. Family to transport home when medically stable. Will follow. SIGNATURE: Tami Patricio RN PATIENT NAME: Elizabeth Modi DATE: December 10, 2019 TIME: 10:47 AM PAGER/CONTACT #: [phone] Normal [facility] Hemogramon 12-10-2019 Erythrocyte distribution width (RBC) [Ratio] 14.1 % Normal 11.6-14.4 [facility] Comment on above: Performed By: #### P 8 #### [facility] [address] [place] [address] Hematocrit (Bld) [Volume fraction] 38.9 % Low 40.1-51.0 [facility] Comment on above: Performed By: #### P 8 #### [facility] [address] [place], [place] [address] Hemoglobin (Bld) [Mass/Vol] 12.3 g/dL Low 13.7-17.5 [facility] Comment on above: Performed By: #### P 8 #### [facility] [address] [place] [address] MCH (RBC) [Entitic mass] 27.8 pg Normal 25.7-32.2 [facility] Comment on above: Performed By: #### P 8 #### [facility] [address] [place] [address] MCHC (RBC) [Mass/Vol] 31.6 % Low 32.3-36.5 [facility] Comment on above: Performed By: #### P 8 #### [facility] [address] [place] [address] MCV (RBC) [Entitic vol] 88.0 fL Normal 83.2-95.6 [facility] Comment on above: Performed By: #### P 8 #### [facility] [address] [place] [address] Platelet mean volume (Bld) [Entitic vol] 10.5 fL Normal 8.7-12.0 [facility] Comment on above: Performed By: #### P 8 #### [facility] [address] [place] [id number] Platelets (Bld) [#/Vol] 285 thou/cmm Normal 141-365 [facility] Comment on above: Performed By: #### P 8 #### [facility] [address] [place] [id number] RBC (Bld) [#/Vol] 4.42 mil/cmm Low 4.63-6.08 [facility] Comment on above: Performed By: #### P 8 #### [facility] [address] [place], [place] [address] RDW SD 45.4 fl Normal 36.1-45.8 [facility] Comment on above: Performed By: #### P 8 #### [facility] [address] [place], [place] [address] WBC (Bld) [#/Vol] 9.86 thou/cmm High 4.23-9.07 [facility] Comment on above: Performed By: #### P 8 #### [facility] [address] [place], [place] [address] MDRD GFRon 12-10-2019 GFR/1.73 sq M predicted among non-blacks MDRD (S/P/Bld) [Vol rate/Area] mL/min/{1.73_m2} Normal >60mL/min/[address] [facility] Comment on above: Result Comment: If t he patient is , multiply the result by 1.210. Performed By: #### M AG #### [address] [address] PLAN OF CAREon 12-10-2019 PLAN OF CARE HNO ID: [id number] Author: Isac Navarro (Pharmacist) Service: Pharmacy Author [...] medication history: Yes Reconciliation completed? Yes All BLENDING LINE ATTENDANT medications addressed by LIP Additional comments: ? [...] has only been using this once daily BLENDING LINE ATTENDANT Paged Gen Surgery (2123) about these findings Fvbux-cs-Gnrjeiwbi Medication List Adjustments: Medication Regimen Changes: Gabapentin [...] Known Allergies Preferred Pharmacy: [facility] Current BLENDING LINE ATTENDANT Medications: Prior to Admission medications as of [...] [facility] PROGRESSon 12-10-2019 PROGRESS HNO ID: [id number] Author: Rohan Duran DO Service: Vascular Surgery [...] questions or concerns Mon-Fri 6a-5p please page [phone]. After 5pm and on Weekends and Holidays, please page [phone] if in ICU or [phone] if on RNF. Subjective SUBJECTIVE: NAEON. Tolerating [...] (Oral) Resp 18 Ht 177.8 cm (5' 10) Wt 88.2 kg (194 lb 6.4 oz) SpO2 95% BMI 27.89 kg/m? O2 Therapy: Room Air IANDO: Date 12/09/19699 - 12/10/1965812/10/19699 - 12/11/19 0659 Shift 6214-1529 3367-7777 5316-6925 24 Hour Total 3176-3556 8088-9015 8197-7556 24 Hour Total INTAKE IV 400 400 OR Crystalloid intake (mL) 300 300 Volume (mL) (lactated ringers infusion) 100 100 Shift Total 400 400 OUTPUT Urine 132 423 2088 Void (ml) 177 892 4197 Shift Total 563 162 4519 Weight (kg) 88.2 88.2 88.2 88.2 88.2 [...] questions or concerns Mon-Fri 6a-5p please page [phone]. After 5pm and on Weekends and Holidays, please page [phone] if in ICU or [phone] if on RNF. Normal [facility] ANES [place] 12-09-2019 ANES POST HNO ID: [id number] Author: Sal Ochoa Service: Anesthesiology Author Type: [...] 09, 2019 TIME: 11:41 AM PAGER/CONTACT #: [facility] ANES PREOPon 12-09-2019 ANES PREOP HNO ID: [id number] Author: Sal Ochoa Service: Anesthesiology Author Type: [...] Height as of 12/06/19: 177.8 cm (5' 10). Weight as of 12/06/19: 84.4 kg (186 [...] File Prior to Encounter Medication Sig - hcfix-5j-xvw-epa-fish oil-D3 667-250 mg-unit cap Take 1 tablet [...] December 09, 2019 TIME: 9:05 AM CSN: [id number] [facility] BRIEF OP NOTon 12-09-2019 BRIEF OP NOT HNO ID: [id number] Author: Sunny Brito Service: Vascular Surgery Author [...] BRIEF OPERATIVE / PROCEDURE NOTE LOG ID: [id number] SURGERY/PROCEDURE DATE: 12/09/2019 INCISION/PROCEDURE START TIME: 10:54 AM INCISION CLOSE/PROCEDURE END TIME: 11:10 AM SURGEON(S)/PROCEDURALI ST(S) AND INDUSTRIAL ROOFER(S): Surgeon(s) and Role: * Ryan Allen - Primary * Sunny Brito - Resident - Assisting Automation Controls Engineer: Mara Godinez SA SURGERY/PROCEDURE(S): irrigation and debridement right lower extremity wound, placement of wound vac ANESTHESIA: General FINDINGS: draining right lower extremity wound ESTIMATED BLOOD LOSS: 2 mls SPECIMENS: debrided tissue COMPLICATIONS: None PRE-OP/PRE-PROCEDURE DIAGNOSIS: right lower extremity wound POST-OP/POST-PROCEDURE DIAGNOSIS: Same as Preop SIGNATURE: Sunny Brito MD PATIENT NAME: Elizabeth Modi DATE: December 09, 2019 TIME: 11:45 AM PAGER/CONTACT #: Normal [facility] Cult and Smr CAROLINE and AERon 0 12-09-2019 Cult and Smr CAROLINE and AER Test performed at [facility] Moderate Mixed skin javier. No anaerobic organisms cultured Few Gram positive cocci Few Polymorphonuclear leukocytes Normal [facility] Comment on above: Performed By: #### P 8 #### [facility] [address] [place] [address] HISTORY PHYSICALon 0 HISTORY PHYSICAL HNO ID: [id number] Author: Sunny Brito Service: Vascular Surgery Author [...] , Rfl: , 12/08/2019 at Unknown time atrlj-1s-cjk-epa-fish oil-D3 667-250 mg-unit cap, Take 1 tablet [...] 09, 2019 TIME: 10:14 AM PAGER/CONTACT #: [phone] Normal [facility] NURSING PROGon 12-09-2019 NURSING PROG HNO ID: [id number] Author: Dakota (Rn) KAVIN Rodriguez Service: ? Author Type: Registered Nurse Type: Nursing Progress Note Filed: 12/09/2019 12:59 PM Note Text: FBG done by Belkis VALE [facility] PROGRESSon 12-07-2019 PROGRESS HNO ID: [id number] Author: Gordo Figueroa Service: ? Author Type: [...] Outpatient Medications Medication Sig Dispense Refill - fheiz-9w-ece-epa-fish oil-D3 667-250 mg-unit cap Take 1 tablet [...] 128/70 Pulse 80 Resp 16 Ht 5' 10 (1.78m) Wt 186 lb (84.4kg) BMI 26.69 [...] up with us next Monday at the [place] facility. Gordo Figueroa MD [facility] 12-06-2019 [facility] Office Visit (NADJAMIL) ELIZABETH MODI ([id number]) 1940 M Date Time Provider Department 12/06/19 11:30 AM GORDO FIGUEROA During your visit today, we recorded the following information about you: Pulse Respiration Blood pressure Weight 80/minute 16/minute 128/70 84.4 kg Height 1.778 m Gordo Figuerao MD 12/07/2019 10:39 AM Signed Elizabeth Modi [...] Outpatient Medications Medication Sig Dispense Refill - nmrfa-2o-maf-epa-fish oil-D3 667-250 mg-unit cap Take 1 tablet [...] 128/70 Pulse 80 Resp 16 Ht 5' 10 (1.78m) Wt 186 lb (84.4kg) BMI 26.69 [...] up with us next Monday at the [place] facility. Gordo Figueroa MD Referring Provider: SELF [200] Allergies As of Date: 12/06/2019 (No Known Allergies) Date Reviewed: 12/06/2019 Reviewed by: Ryan Allen - Fully Assessed Reason for Visit: Peripheral Vascular Disease (PVD) [3545] Cmt: Elizabeth is post op 09/05/19 Revision Rt BKA Primary Visit Diagnosis:PVD (peripheral vascular disease) ([facility]) [I73.9] Other Visit Diagnosis:Below knee amputation ([facility]) [S88.119A] Prescriptions as of 12/06/2019 Sig: OMEGA-3S 667 QP-KTX-YRN-FISH * Take 1 tablet by mouth once [...] Status:Closed by GORDO FIGUEROA MD on 12/07/19 [facility] 12-06-2019 [facility] Telephone (AGDefinicare) ELIZABETH MODI ([id number]) 1940 M Date Time Provider Department 12/06/19 RYAN ALLEN During your visit today, we recorded the following information about you: Allergies As of Date: 12/06/2019 (No Known Allergies) Date Reviewed: 12/06/2019 Reviewed by: Gordo Figueroa - Fully Assessed Reason for Visit: Schedule Surgery [1330] Primary Visit Diagnosis:PVD (peripheral vascular disease) ([facility]) [I73.9] Order(s):SURGICAL REQUEST - ELECTIVE [2243989] Order #: [id number]: 1 HANDP FOR SURGERY [[id number]] Order #: [id number] PRE-PROCEDURE AND PRE-OPERATIVE COVID [SQPOCOVD] Order #: [id number] FUTURE CBC [SQCBC] Order #: [id number] FUTURE BASIC METABOLIC PNL [SQBMP] Order #: [id number] FUTURE PROTHROMBIN TIME/PT [SQPT] Order #: [id number] FUTURE Prescriptions as of 12/06/2019 Sig: OMEGA-3S 667 WT-GSK-CLQ-FISH * Take 1 tablet by mouth once [...] Status:Closed by RYAN ALLEN MD on 12/06/19 [facility] HOSPon 12-06-2019 HOSP Patient:Elizabeth Modi MRN: Height:5' 10(1.778 m) Weight:186 lb (84.369 kg) Outpatient Medications as of 12/09/19: abbns-2q-fsw-epa-fish oil-D3 667-250 mg-unit cap zinc sulfate (ORAZINC [...] the following basenames: K,HCT Progress Notes ([facility]): Gordo Figueroa MD 12/07/2019 10:39 AM [...] Outpatient Medications Medication Sig Dispense Refill - huxri-8n-zkn-epa-fish oil-D3 667-250 mg-unit cap Take 1 tablet [...] 128/70 Pulse 80 Resp 16 Ht 5' 10 (1.78m) Wt 186 lb (84.4kg) BMI 26.69 [...] up with us next Monday at the [place] facility. Gordo Figueroa MD [facility] CASE MANAGEMon 09-11-2019 CASE MANAGEM HNO ID: [id number] Author: Tiffanie SantiagoRn) KAVIN Travis Service: Care Management Author Type: Registered Nurse Type: Care Mgt Progress Note Filed: 09/11/2019 12:54 PM Note Text: CARE MANAGEMENT DISCHARGE NOTE SERVICE DATE: 09/11/2019 SERVICE TIME: 12:42 PM LOS: 21 days Admission Date: 08/21/2019 DISCHARGE ARRANGEMENT (list agency and phone number) Discharge Arrangement: alf facility Was an expedited discharge program used?: No [facility] ASSESSMENT: HANDOFF COMMUNICATION: Handoff to: Primary Care Physician TRANSPORTATION ARRANGEMENTS: Transportation Arrangements: Ambulance/[employer] and Phone #:: [facility] ( [facility] ) [phone] / [phone] Type of Service: BLS Non-emergency Is Patient Medicaid Pending?: No Discussion of financial coverage occurred with: Family [employer]er Location: [facility] Destination: [facility] Financial Care Management Responsibility: None ADDITIONAL CONTACT RESOURCES: none Auth is obtained and patient has been discharged to [facility]. [employer] is transporting patient via cot at 13:00. Patient notified of discharge. He initially resisted stating he wanted to go to [facility]. Explained that he asked Energy And Conservation Technician to have his dtr Angelic makethe decision and she chose [facility]. Patient reluctantly agreed to discharge. Encouraged patient to discuss with staff there if he is not happy with the rehab and still wishes to go to [place]. Patent's dtr Angelic notified. SIGNATURE: Tiffanie Travis RN PATIENT NAME: Elizabeth Modi DATE: September 11, 2019 TIME: 12:41 PM PAGER/CONTACT #: [phone] [facility] CASE MANAGEM HNO ID: [id number] Author: Tiffanie SantiagoRn) KAVIN Travis Service: Care Management Author Type: Registered Nurse Type: Care Mgt Progress Note Filed: 09/11/2019 9:48 AM Note Text: CARE MANAGEMENT PROGRESS NOTE SERVICE DATE: 09/11/2019 SERVICE TIME: 9:47 AM LOS: 21 days Auth received for [facility]. MD notified. SIGNATURE: Tiffanie Travis RN PATIENT NAME: Elizabeth Modi DATE: September 11, 2019 TIME: 9:47 AM PAGER/CONTACT #: [phone] [facility] CONSULT PROGon 09-11-2019 CONSULT PROG HNO ID: [id number] Author: Doris Eden Service: Endocrinology Author Type: Physician Type: Consult Progress Note Filed: 09/11/2019 7:56 AM Note Text: ENDOCRINOLOGY CONSULT PROGRESS NOTE SERVICE DATE: 09/11/2019 SERVICE TIME: 7:40 AM Subjective INTERVAL HPI: Pt followed for diabetes mellitus type 2 with complications. Tr from [facility]; adm for right foot infection and gangrene; [...] (Src) 98.2 (Temporal) Resp 18 Ht 5' 10 (1.78m) Wt 193 lb 2 oz (87.6kg) [...] 09-11-2019 Glucose [Mass/Vol] 173 mg/dL High 70-99 [facility] Comment on above: Result Comment: KAVIN N OTIFIED Performed By: #### G LMET #### [facility] [address] [place] [address] NUTRITIONon 09-11-2019 NUTRITION HNO ID: [id number] Author: Snow Serna Service: Nutrition Therapy Author Type: Registered Dietitian Type: Nutrition Filed: 09/11/2019 12:51 PM Note Text: NUTRITION THERAPY PROGRESS NOTE SERVICE DATE: 09/11/2019 SERVICE TIME: 12:36 PM Nutrition Assessment: Recommended Malnutrition Diagnosis: Moderate Protein-Calorie Malnutrition (09/06/19 1155 : Tanja Byrne RD) Estimated kilocalorie needs: 0404-0709 Calorie Calculation Method: 30-35 kcals/kg Estimated protein [...] continued supplementation. Anthropometrics: Height: 177.8 cm (5' 10) Weight: 87.6 kg (193 lb 2 oz) Dosing Weight: 71 kg (156 lb 8.4 oz)(adjusted IBW for R BKA) Body mass index is 27.71 kg/m?. Overweight Intake History: Current Intake: Greater than 75% estimated energy needs over: 15 days overall Current Diet: DIET HEART HEALTHY SIGNATURE: Snow Serna RD, LD PATIENT NAME: Elizabeth Modi DATE: September 11, 2019 TIME: 12:36 PM PAGER: [phone] [facility] PLAN OF CAREon 09-11-2019 PLAN OF CARE HNO ID: [id number] Author: Francine Pineda (Pharmacist) Service: Pharmacy Author [...] PHARMACIST September 11, 2019 11:45 AM Pager: [phone] 09/11/2019 11:45 AM Medication List START taking [...] oxyCODONE IR 5 mg immediate release tablet [facility] PROGRESSon 09-11-2019 PROGRESS HNO ID: [id number] Author: Tom Prescott DO Service: General Surgery [...] questions or concerns Mon-Fri 6a-5p please page [phone]. After 5pm and on Weekends and Holidays, please page [phone] if in ICU or [phone] if on RNF. Subjective SUBJECTIVE: Patient seen and examined this morning. SARATH. States his pain is currently 8/10 in severity, took tylenol mostly for pain control. Dressing taken down this morning, incision examined. Still awaiting precert at [facility]. Continues to do knee exercises, in knee immobilizer this am Denies any new complaints, no N/V, CP/SOB Diet: DIET HEART HEALTHY Objective OBJECTIVE: Vitals: Temp (24hrs), Av.7 ?C (98 ?F), Min:36.4 ?C (97.5 ?F), Max:36.8 ?C (98.2 ?F) BP 134/52 Pulse 82 Temp 36.8 ?C (98.2 ?F) (Temporal) Resp 18 Ht 177.8 cm (5' 10) Wt 87.6 kg (193 lb 2 oz) SpO2 92% BMI 27.71 kg/m? O2 Therapy: Room Air IANDO: Date 09/10/19 0700 - 09/11/19 0659 09/11/19 0700 - 09/12/19 0659 Shift 3222-6424 8178-7945 6872-3047 24 Hour Total 2215-1183 1420-0926 4139-4839 24 Hour Total INTAKE PO 120 120 PO 120 120 Shift Total 120 120 OUTPUT Urine 417 107 0265 2120 Void (ml) 432 630 1826 2120 Urine Not Saved. 1 x 1 x # of BMs Number of BMs 1 x 1 x 2 x Shift Total 908 484 7186 2120 Weight (kg) 87.7 87.7 87.6 87.6 [...] C/D/I with luly- healing well, minimal edema-stump recycling specialist in place. SKIN: Skin color, texture, turgor normal, No rashes or lesions ASSESSMENT AND PLAN: ACTIVE PROBLEM LIST Gangrene of Foot (Hcc) Diabetes (Hcc) Htn (Hypertension) Dyslipidemia Hypothyroidism Malnutrition of Moderate Degree (Hcc) Assessment: 79 year old male with PMH of thyroid disease, HTN, dyslipidemia,claudicat ion, DM. 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 Antibiotics stopped 08/23, remains non-septic. 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 09/02 PVR R calf 0.51, R low thigh 0.74. 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 Incision health appearing C/D/I with luly- dressing changed this morning, stump recycling specialist and knee immboilizer reapplied Knee immobilizer q4hr - Pain control - PT Rec Acute Rehab - PAD: Cont Statin and asa - IS/mobilize as able - [facility] - Dispo Planning: Precert pending at [facility] rehab Assessment and plan discussed with [...] THERAPY NTon 09-11-2019 THERAPY NT HNO ID: [id number] Author: Ramón ([place]) Poppy Service: Physical Therapy Author Type: Rvda Master Certified Rv Technician Type: Therapy (PT/OT/Speech/Resp) Filed: 09/11/2019 12:04 PM Note Text: Attestation signed by Tori Graham at 09/12/2019 3:52 PM I reviewed and agree with the documentation corresponding to this therapy visit. SIGNATURE: Tori Graham PT DATE: September 12, 2019 TIME: 3:52 PM Physical Therapy Treatment SERVICE DATE: 09/11/2019 SERVICE TIME: 1036 to 1111 ROOM: [place] [address] Recommended Discharge Disposition: Acute Rehab Recommended Discharge [...] l;Muscle Weakness (generalized) Interventions Provided: Therapeutic Exercise (11753);Therapeutic Activity (83313) Therapeutic Exercise (67461) Treatment Minutes: 18 1 unit Skilled Intervention(s): [...] and quad sets x10 hour. Therapeutic Activity (25691) Treatment Minutes: 17 1 unit Skilled Intervention(s): [...] CONSULT PROGon 09-10-2019 CONSULT PROG HNO ID: [id number] Author: Doris Eden Service: Endocrinology Author Type: Physician Type: Consult Progress Note Filed: 09/10/2019 7:55 AM Note Text: ENDOCRINOLOGY CONSULT PROGRESS NOTE SERVICE DATE: 09/10/2019 SERVICE TIME: 7:35 AM Subjective INTERVAL HPI: Pt followed for diabetes mellitus type 2 with complications. Tr from [facility]; adm for right foot infection and gangrene; [...] (Src) 98.2 (Oral) Resp 16 Ht 5' 10 (1.78m) Wt 193 lb 5.5 oz (87.7kg) SpO2 100% BMI 27.74 kg/(m2). O2 Therapy: Room Air General : no distress Lungs : CTA anteriorly Heart : RRR Abdomen soft, no masses Extremities: has dressing/recycling specialist on R leg stump; dressing on [...] September 10, 2019 TIME: 7:55 AM PAGER: [phone] Normal [facility] PROGRESSon 09-10-2019 PROGRESS HNO ID: [id number] Author: Jennifer Crooks Service: Vascular Surgery Author [...] (Oral) Resp 16 Ht 177.8 cm (5' 10) Wt 87.7 kg (193 lb 5.5 oz) SpO2 100% BMI 27.74 kg/m? O2 Therapy: Room Air IANDO: Date 09/09/19 0700 - 09/10/19 0659 09/10/19 0700 - 09/11/19 0659 Shift 4328-8281 5947-7457 0177-0684 24 Hour Total 4671-8880 4025-7628 4100-6650 24 Hour Total INTAKE Shift Total OUTPUT Urine 074 615 3345 Void (ml) 177 693 3886 # of BMs Number of BMs 1 x 1 x 2 x Shift Total 155 100 6421 Weight (kg) 87.7 87.7 87.7 87.7 87.7 [...] (Oral) Resp 16 Ht 177.8 cm (5' 10) Wt 87.7 kg (193 lb 5.5 oz) [...] lower extremity angiogram with partial occlusion R PLASTIC TILE SETTER, reconstitution at R below knee pop, 2-vessel runoff. Antibiotics stopped 08/23, remains non-septic. 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 09/02 PVR R calf 0.51, R low thigh 0.74. 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 ? Plan: -?DIET HEART HEALTHY? 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 Dressing changed re-applied stump recycling specialist today. Knee immobilize q4hr - Pain control - PT/OT?recs:?acute rehab - [facility] ppx - Mobilization as able, out of bed to chair?as tolerated - PAD - continue statin?and aspirin - Dispo planning[facility] V[facility] AND Thoracic Surgery Service Pager: For questions or concerns Mon-Mon 6a-5p please page [phone]. After 5pm and on Weekends and Holidays, please page [phone] if in ICU or [phone] if on RNF. SIGNATURE: Jennifer Crooks MD PATIENT NAME: Elizabeth Modi DATE: September 10, 2019 TIME: 6:28 AM Pager: Normal [facility] THERAPY NTon 09-10-2019 THERAPY NT HNO ID: [id number] Author: Ramón Obrien) Poppy Service: Physical Therapy Author Type: Rvda Master Certified Rv Technician Type: Therapy (PT/OT/Speech/Resp) Filed: 09/10/2019 12:18 PM Note Text: Attestation signed by Tori Rapp) Santos at 09/11/2019 11:35 AM I reviewed and agree with the documentation corresponding to this therapy visit. SIGNATURE: Tori Graham, PT DATE: September 11, 2019 TIME: 11:35 AM Physical Therapy Treatment SERVICE DATE: 09/10/2019 SERVICE TIME: 1043 to 1108 ROOM: [id number] Recommended Discharge Disposition: Acute Rehab Recommended Discharge [...] l;Muscle Weakness (generalized) Interventions Provided: Therapeutic Activity (87884) Therapeutic Activity (92583) Treatment Minutes: 25 2 units Skilled Intervention(s): [...] 09-09-2019 Creatinine [Mass/Vol] 0.73 mg/dL Normal 0.67-1.17 [facility] Comment on above: Result Comment: Use of this assay is not recommended for patients undergoing treatment with phenindione, due to the potential for falsely depressed results. Performed By: #### C BC1 #### [place] [address] Anion gap [Moles/Vol] 13 mmol/L Normal 8-16 [facility] Comment on above: Performed By: #### C BC1 #### [facility] [address] [place], [place] [address] CO2 [Moles/Vol] 24 mmol/L Normal 21-32 [facility] Comment on above: Performed By: #### C BC1 #### [facility] [address] [place], [place] [address] Urea nitrogen [Mass/Vol] 23 mg/dL High 7-18 [facility] Comment on above: Performed By: #### C BC1 #### [facility] [address] [place], [place] [address] Calcium [Mass/Vol] 8.9 mg/dL Normal 8.5-10.1 [facility] Comment on above: Performed By: #### C BC1 #### [address] [address] Glucose [Mass/Vol] 79 mg/dL Normal 70-99 [facility] Comment on above: Performed By: #### C BC1 #### [facility] [address] [place], [place] [address] Chloride [Moles/Vol] 100 mmol/L Normal 98-107 [facility] Comment on above: Performed By: #### C BC1 #### [facility] [address] [place], [place] [address] Potassium [Moles/Vol] 4.0 mmol/L Normal 3.5-5.1 [facility] Comment on above: Performed By: #### C BC1 #### [facility] [address] [place], [place] [address] Sodium [Moles/Vol] 133 mmol/L Low 136-145 [facility] Comment on above: Performed By: #### C BC1 #### [facility] [address] [place], [place] [address] CASE MANAGEMon 09-09-2019 CASE MANAGEM HNO ID: [id number] Author: Christina Crandall Sec Service: Care Management [...] 09, 2019 TIME: 11:40 AM PAGER/CONTACT #: [phone] [facility] CASE MANAGEM HNO ID: [id number] Author: Tami (Rn) KAVIN Patricio Service: Care Management Author Type: Registered Nurse Type: Care Mgt Progress Note Filed: 09/09/2019 9:15 AM Note Text: CARE MANAGEMENT PROGRESS NOTE SERVICE DATE: 09/09/2019 SERVICE TIME: 9:14 AM LOS: 19 days Chart reviewed. Precert pending for [facility] rehab. Pt will need cot for transport at d/c. Will follow. SIGNATURE: Tami Patricio RN PATIENT NAME: Elizabeth Modi DATE: September 09, 2019 TIME: 9:14 AM PAGER/CONTACT #: [phone] [facility] CONSULT PROGon 09-09-2019 CONSULT PROG HNO ID: [id number] Author: Doris Eden Service: Endocrinology Author Type: Physician Type: Consult Progress Note Filed: 09/09/2019 8:25 AM Note Text: ENDOCRINOLOGY CONSULT PROGRESS NOTE SERVICE DATE: 09/09/2019 SERVICE TIME: 8:00 AM Subjective INTERVAL HPI: Pt followed for diabetes mellitus type 2 with complications. Tr from [facility]; adm for right foot infection and gangrene; [...] (Src) 97.9 (Oral) Resp 18 Ht 5' 10 (1.78m) Wt 193 lb 5.5 oz (87.7kg) SpO2 98% BMI 27.74 kg/(m2). O2 Therapy: Room Air General : no distress Lungs : CTA anteriorly Heart : RRR Abdomen soft, no masses Extremities: has dressing/recycling specialist on R leg stump; dressing on [...] width (RBC) [Ratio] 15.9 % High 11.6-14.4 [facility] Comment on above: Performed By: #### P 8 #### [address] [address] Hematocrit (Bld) [Volume fraction] 27.5 % Low 40.1-51.0 [facility] Comment on above: Performed By: #### P 8 #### [address] [address] Hemoglobin (Bld) [Mass/Vol] 8.8 g/dL Low 13.7-17.5 [facility] Comment on above: Performed By: #### P 8 #### [facility] [address] [place], [place] [address] MCH (RBC) [Entitic mass] 29.2 pg Normal 25.7-32.2 [facility] Comment on above: Performed By: #### P 8 #### [facility] [address] [place], [place] [address] MCHC (RBC) [Mass/Vol] 32.0 % Low 32.3-36.5 [facility] Comment on above: Performed By: #### P 8 #### [facility] [address] [place], [place] [address] MCV (RBC) [Entitic vol] 91.4 fL Normal 83.2-95.6 [facility] Comment on above: Performed By: #### P 8 #### [facility] [address] [place], [place] [address] Platelet mean volume (Bld) [Entitic vol] 9.6 fL Normal 8.7-12.0 [facility] Comment on above: Performed By: #### P 8 #### [facility] [address] [place], [place] [address] Platelets (Bld) [#/Vol] 505 thou/cmm High 141-365 [facility] Comment on above: Performed By: #### P 8 #### [facility] [address] [place], [place] [address] RBC (Bld) [#/Vol] 3.01 mil/cmm Low 4.63-6.08 [facility] Comment on above: Performed By: #### P 8 #### [facility] [address] [place] [address] RDW SD 51.8 fl High 36.1-45.8 [facility] Comment on above: Performed By: #### P 8 #### [facility] [address] [place], [place] [address] WBC (Bld) [#/Vol] 12.29 thou/cmm High 4.23-9.07 [facility] Comment on above: Performed By: #### P 8 #### [facility] [address] [place], [place] [address] MDRD GFRon 09-09-2019 GFR/1.73 sq M predicted among non-blacks MDRD (S/P/Bld) [Vol rate/Area] mL/min/{1.73_m2} Normal >60mL/min/[address] [facility] Comment on above: Result Comment: If t he patient is , multiply the result by 1.210. Performed By: #### C BC1 #### [facility] [address] [place], [place] [address] Magnesium Bloodon 09-09-2019 Magnesium [Mass/Vol] 1.3 mg/dL Low 1.6-2.6 [facility] Comment on above: Performed By: #### C _ANA #### [place] [id number] PLAN OF CAREon 09-09-2019 PLAN OF CARE HNO ID: [id number] Author: Francine Pineda (Pharmacist) Service: Pharmacy Author Type: Pharmacist Type: Plan of Care Filed: 09/09/2019 11:32 AM Note Text: MEDICATION HISTORY AND MEDICATION RECONCILIATION Patient Name:Nelson Modi : 1940 Source of history:Pharmacy records: [place] [id number] Medication Nonadherence Identified: No barriers noted- up to date on refills The above information represents the best possible medication history: Yes Reconciliation completed? Yes All BLENDING LINE ATTENDANT medications addressed by LIP Additional comments: Suybv-es-Vhzdgirmg Medication List Adjustments: Medication Regimen Changes: None Medications Added: None Medications Removed: None Short-Term Medications: None Further Clarification Required: None Patient is a 30 day readmission: No Patient Interested in Bedside Delivery: No Time Spent Reviewing Patient's Medications: 40 minutes Allergies: ALLERGIES No Known Allergies Preferred Pharmacy: [facility] [id number] [place] [address] Current BLENDING LINE ATTENDANT Medications: Prior to Admission medications as of [...] [facility] PROGRESSon 09-09-2019 PROGRESS HNO ID: [id number] Author: Tom Prescott DO Service: General Surgery [...] of pain while wearing knee immobilizer. Stump recycling specialist supplied by [employer]. Denies f/C. Moving the stump without to much difficulty Tolerating diet DIET HEART HEALTHY OBJECTIVE: Vitals: Temp (24hrs), Av.7 ?C (98.1 ?F), Min:36.6 ?C (97.9 ?F), Max:36.8 ?C (98.2 ?F) BP 128/55 Pulse 102 Temp 36.6 ?C (97.9 ?F) (Oral) Resp 18 Ht 177.8 cm (5' 10) Wt 87.7 kg (193 lb 5.5 oz) SpO2 98% BMI 27.74 kg/m? O2 Therapy: Room Air IANDO: Date 09/08/19 07 - 09/09/19 0659 09/09/19 07 - 09/10/19 0659 Shift 6109-1457 7134-7805 2647-5832 24 Hour Total 9984-0448 6899-9713 3995-5394 24 Hour Total INTAKE Shift Total OUTPUT [...] (Oral) Resp 18 Ht 177.8 cm (5' 10) Wt 87.7 kg (193 lb 5.5 oz) SpO2 98% BMI 27.74 kg/m? GENERAL: No distress, Alert NEURO: AANDOx3, CN II-XII grossly intact HEENT: normocephalic, atraumatic LUNGS: Unlabored breathing, on room mark CARDIAC: Tachycardic, BP as above ABDOMEN: Soft, non-tender, non-distended EXTREMITIES: knee immobilizer at bedside for RLE, krilex dressing with mild strike through, Incision c/d/i with luly in place, BKA with stump recycling specialist in place SKIN: Skin color, texture, [...] lower extremity angiogram with partial occlusion R PLASTIC TILE SETTER, reconstitution at R below knee pop, 2-vessel runoff. Antibiotics stopped 08/23, remains non-septic. 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 09/02 PVR R calf 0.51, R low thigh 0.74. 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 ? Plan: -?DIET HEART HEALTHY? 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 Dressing changed re-applied stump recycling specialist today. Knee immobilize q4hr - Pain control - PT/OT?recs:?acute rehab - [facility] ppx - Mobilization as able, out of bed to chair?as tolerated - PAD - continue statin?and aspirin - Dispo planning: awaiting precert to [facility] Discuss plan with Dr. Devin Prescott DO, MBA PGY-1 General Surgery Resident 09/09/2019 9:02 AM Pager below: Vascular AND Thoracic Surgery Service Pager: For questions or concerns Mon-Fri 6a-5p please page [phone]. After 5pm and on Weekends and Holidays, please page [phone] if in ICU or [phone] if on RNF. Normal [facility] Phosphorus Bloodon 0 Phosphate [Mass/Vol] 3.1 mg/dL Normal 2.5-4.9 [facility] Comment on above: Performed By: #### C BC1 #### [place] [id number] THERAPY NTon 09-09-2019 THERAPY NT HNO ID: [id number] Author: Ramón ([place]) Poppy Service: Physical Therapy Author Type: Rvda Master Certified Rv Technician Type: Therapy (PT/OT/Speech/Resp) Filed: 09/09/2019 11:36 AM Note Text: Attestation signed by Tori (Pt) Santos at 09/09/2019 4:16 PM I reviewed and agree with the documentation corresponding to this therapy visit. SIGNATURE: Tori Graham, PT DATE: September 09, 2019 TIME: 4:16 PM Physical Therapy Treatment SERVICE DATE: 09/09/2019 SERVICE TIME: 1053 to 1119 ROOM: [id number] Recommended Discharge Disposition: Acute Rehab Recommended Discharge [...] l;Muscle Weakness (generalized) Interventions Provided: Therapeutic Exercise (65399);Therapeutic Activity (50548) Therapeutic Exercise (22966) Treatment Minutes: 14 1 unit Skilled Intervention(s): [...] change of knee flexion contracture. Therapeutic Activity (46359) Treatment Minutes: 12 1 unit Skilled Intervention(s): [...] 09-08-2019 Creatinine [Mass/Vol] 0.71 mg/dL Normal 0.67-1.17 [facility] Comment on above: Result Comment: Use of this assay is not recommended for patients undergoing treatment with phenindione, due to the potential for falsely depressed results. Performed By: #### P 8 #### [place] [address] Anion gap [Moles/Vol] 11 mmol/L Normal 8-16 [facility], [place], operated [facility] Comment on above: Performed By: #### P 8 #### [facility] [address] [place], [place] [address] Calcium [Mass/Vol] 8.7 mg/dL Normal 8.5-10.1 [facility] Comment on above: Performed By: #### P 8 #### [facility] [address] [place], [place] [address] CO2 [Moles/Vol] 24 mmol/L Normal 21-32 [facility] Comment on above: Performed By: #### P 8 #### [facility] [address] [place], [place] [address] Glucose [Mass/Vol] 132 mg/dL High 70-99 [facility] Comment on above: Performed By: #### P 8 #### [facility] [address] [place], [place] [address] Urea nitrogen [Mass/Vol] 17 mg/dL Normal 7-18 [facility] Comment on above: Performed By: #### P 8 #### [facility] [address] [place], [place] [address] Chloride [Moles/Vol] 102 mmol/L Normal 98-107 [facility] Comment on above: Performed By: #### P 8 #### [facility] [address] [place], [place] [address] Potassium [Moles/Vol] 3.9 mmol/L Normal 3.5-5.1 [facility] Comment on above: Performed By: #### P 8 #### [facility] [address] [place], [place] [address] Sodium [Moles/Vol] 133 mmol/L Low 136-145 [facility] Comment on above: Performed By: #### P 8 #### [facility] [address] [place], [place] [address] CONSULT PROGon 09-08-2019 CONSULT PROG HNO ID: [id number] Author: Hermila Gallegos Service: Endocrinology Author Type: Physician Type: Consult Progress Note Filed: 09/08/2019 1:57 PM Note Text: ENDOCRINOLOGY CONSULT PROGRESS NOTE SERVICE DATE: 09/08/2019 SERVICE TIME: 10:20 AM Subjective INTERVAL HPI: Pt followed for diabetes mellitus type 2 with complications. Tr from [facility]; adm for right foot infection and gangrene; [...] (Src) 97.9 (Oral) Resp 18 Ht 5' 10 (1.78m) Wt 199 lb 4.7 oz (90.4kg) [...] September 08, 2019 TIME: 1:57 PM PAGER: [phone] Normal [facility] Hemogramon 09-08-2019 Erythrocyte distribution width (RBC) [Ratio] 15.8 % High 11.6-14.4 [facility] Comment on above: Performed By: #### P 8 #### [address] [place] [address] Hematocrit (Bld) [Volume fraction] 27.0 % Low 40.1-51.0 [facility] Comment on above: Performed By: #### P 8 #### [facility] [address] [place], [place] [address] Hemoglobin (Bld) [Mass/Vol] 8.2 g/dL Low 13.7-17.5 [facility] Comment on above: Performed By: #### P 8 #### [facility] 1 [place] [address] MCH (RBC) [Entitic mass] 27.8 pg Normal 25.7-32.2 [facility] Comment on above: Performed By: #### P 8 #### [facility] 1 [place] [address] MCHC (RBC) [Mass/Vol] 30.4 % Low 32.3-36.5 [facility] Comment on above: Performed By: #### P 8 #### [facility] 1 [place] [address] MCV (RBC) [Entitic vol] 91.5 fL Normal 83.2-95.6 [facility] Comment on above: Performed By: #### P 8 #### [facility] 1 [place] [address] Platelet mean volume (Bld) [Entitic vol] 10.2 fL Normal 8.7-12.0 [facility] Comment on above: Performed By: #### P 8 #### [facility] 1 [place], [place] [address] Platelets (Bld) [#/Vol] 444 thou/cmm High 141-365 [facility] Comment on above: Performed By: #### P 8 #### [facility] [address] [place], [place] [address] RBC (Bld) [#/Vol] 2.95 mil/cmm Low 4.63-6.08 [facility] Comment on above: Performed By: #### P 8 #### [facility] 1 [place] [address] RDW SD 51.5 fl High 36.1-45.8 [facility] Comment on above: Performed By: #### P 8 #### [facility] 1 [place], [place] [address] WBC (Bld) [#/Vol] 12.29 thou/cmm High 4.23-9.07 [facility] Comment on above: Performed By: #### P 8 #### [facility] [address] [place], [place] [address] Magnesium Bloodon 09-08-2019 Magnesium [Mass/Vol] 1.2 mg/dL Low 1.6-2.6 [facility] Comment on above: Performed By: #### C BC1 #### [facility] [address] [place], [place] [address] PROGRESSon 09-08-2019 PROGRESS HNO ID: [id number] Author: Jennifer Crooks Service: Vascular Surgery Author [...] pain moderately well controlled this am. Stump recycling specialist applied by [employer] yesterday. Knee immobilizer in place. Tolerating diet DIET HEART HEALTHY OBJECTIVE: Vitals: Temp (24hrs), Av.8 ?C (98.3 ?F), Min:36.5 ?C (97.7 ?F), Max:37.3 ?C (99.1 ?F) BP 119/85 Pulse 98 Temp 37.1 ?C (98.8 ?F) (Oral) Resp 16 Ht 177.8 cm (5' 10) Wt 90.4 kg (199 lb 4.7 oz) SpO2 96% BMI 28.60 kg/m? O2 Therapy: Room Air IANDO: Date 09/07/19 0700 - 09/08/19 0659 09/08/19 07 - 09/09/19 0659 Shift 0314-0603 7956-0574 7071-1783 24 Hour Total 0135-2516 4036-9060 0300-2130 24 Hour Total INTAKE Shift Total OUTPUT Urine 000 028 7682 Void (ml) 721 539 5939 # of BMs Stool Incontinence 1 x 1 x Number of BMs 1 x 1 x Shift Total 665 316 9451 Weight (kg) 90 90 90.4 90.4 90.4 [...] (Oral) Resp 16 Ht 177.8 cm (5' 10) Wt 90.4 kg (199 lb 4.7 oz) [...] lower extremity angiogram with partial occlusion R PLASTIC TILE SETTER, reconstitution at R below knee pop, 2-vessel [...] edema, no bleeding. Will change dressing/re-apply stump recycling specialist today. - Pain control - PT/OT?recs:?acute rehab - [facility] ppx - Mobilization as able, out of bed to chair?as tolerated - PAD - continue statin?and aspirin - Dispo planning: awaiting precert to [facility] Addendum: (10:34 AM) Patient seen bedside with attending. Knee immobilizer/and dressing/stump recycling specialist taken down. Surgical incision appears healthy with minimal drainage. No erythema or bleeding. [place] intact. Dressing/stump recycling specialist reapplied. Will continue knee immobilizer q4H and while OOB. ? Vascular AND Thoracic Surgery Service Pager: For questions or concerns Mon-Mon 6a-5p please page [phone]. After 5pm and on Weekends and Holidays, please page [phone] if in ICU or [phone] if on RNF. SIGNATURE: Jennifer Crooks MD PATIENT NAME: Elizabeth Modi DATE: September 08, 2019 TIME: 6:45 AM Pager: Normal [facility] Phosphorus Bloodon 0 Phosphate [Mass/Vol] 3.0 mg/dL Normal 2.5-4.9 [facility] Comment on above: Performed By: #### C BC1 #### [facility] 1 [place], [place] [address] Basic Panelon 09-07-2019 Creatinine [Mass/Vol] 0.84 mg/dL Normal 0.67-1.17 [facility] Comment on above: Result Comment: Use of this assay is not recommended for patients undergoing treatment with phenindione, due to the potential for falsely depressed results. Performed By: #### F ERR #### [facility] 1 [place] [address] Anion gap [Moles/Vol] 11 mmol/L Normal 8-16 [facility] Comment on above: Performed By: #### F ERR #### [address] [address] CO2 [Moles/Vol] 25 mmol/L Normal 21-32 [facility] Comment on above: Performed By: #### F ERR #### [address] [address] Glucose [Mass/Vol] 147 mg/dL High 70-99 [facility] Comment on above: Performed By: #### F ERR #### [facility] [address] [place], [place] [address] Urea nitrogen [Mass/Vol] 14 mg/dL Normal 7-18 [facility] Comment on above: Performed By: #### F ERR #### [facility] [address] [place], [place] [address] Calcium [Mass/Vol] 9.5 mg/dL Normal 8.5-10.1 [facility] Comment on above: Performed By: #### F ERR #### [facility] [address] [place], [place] [address] Chloride [Moles/Vol] 101 mmol/L Normal 98-107 [facility] Comment on above: Performed By: #### F ERR #### [address] [address] Potassium [Moles/Vol] 4.2 mmol/L Normal 3.5-5.1 [facility] Comment on above: Performed By: #### F ERR #### [facility] 1 [place], [place] [address] Sodium [Moles/Vol] 133 mmol/L Low 136-145 [facility] Comment on above: Performed By: #### F ERR #### [facility] [address] [place], [place] [address] CONSULT PROGon 09-07-2019 CONSULT PROG HNO ID: [id number] Author: Hermila Gallegos Service: Endocrinology Author Type: Physician Type: Consult Progress Note Filed: 09/07/2019 11:25 AM Note Text: ENDOCRINOLOGY CONSULT PROGRESS NOTE SERVICE DATE: 09/07/2019 SERVICE TIME: 11:22 AM Subjective INTERVAL HPI: Pt followed for diabetes mellitus type 2 with complications. Tr from [facility]; adm for right foot infection and gangrene; [...] (Src) 97.7 (Temporal) Resp 16 Ht 5' 10 (1.78m) Wt 198 lb 6.6 oz (90.0kg) [...] width (RBC) [Ratio] 16.1 % High 11.6-14.4 [facility] Comment on above: Performed By: #### M AG #### [facility] 1 [place] [address] Hematocrit (Bld) [Volume fraction] 31.4 % Low 40.1-51.0 [facility] Comment on above: Performed By: #### M AG #### [facility] 1 [place] [address] Hemoglobin (Bld) [Mass/Vol] 9.8 g/dL Low 13.7-17.5 [facility] Comment on above: Performed By: #### M AG #### [address] [address] MCH (RBC) [Entitic mass] 28.7 pg Normal 25.7-32.2 [facility] Comment on above: Performed By: #### M AG #### [facility] [address] [place], [place] [address] MCHC (RBC) [Mass/Vol] 31.2 % Low 32.3-36.5 [facility] Comment on above: Performed By: #### M AG #### [place] [address] MCV (RBC) [Entitic vol] 92.1 fL Normal 83.2-95.6 [facility] Comment on above: Performed By: #### M AG #### [facility] [address] [place], [place] [address] Platelet mean volume (Bld) [Entitic vol] 9.6 fL Normal 8.7-12.0 [facility] Comment on above: Performed By: #### M AG #### [facility] [address] [place], [place] [address] Platelets (Bld) [#/Vol] 519 thou/cmm High 141-365 [facility] Comment on above: Performed By: #### M AG #### [facility] 1 [place] [id number] RBC (Bld) [#/Vol] 3.41 mil/cmm Low 4.63-6.08 [facility] Comment on above: Performed By: #### M AG #### [facility] 1 [place] [address] RDW SD 53.3 fl High 36.1-45.8 [facility] Comment on above: Performed By: #### M AG #### [facility] 1 [place] [address] WBC (Bld) [#/Vol] 12.27 thou/cmm High 4.23-9.07 [facility] Comment on above: Performed By: #### M AG #### [facility] [address] [place] [address] Magnesium Bloodon 09-07-2019 Magnesium [Mass/Vol] 1.3 mg/dL Low 1.6-2.6 [facility] Comment on above: Performed By: #### F ERR #### [facility] 1 [place] [address] OPERATIVE NOon 09-07-2019 OPERATIVE NO HNO ID: [id number] Author: Ryan Allne Service: ? Author Type: Physician Type: Operative Report Filed: 09/09/2019 8:10 AM Note Text: [facility] - Operative Report ELIZABETH MODI : 1940 AGE: 79. SEX: M PATIENT TYPE: I HOSP SVC: KEENAN LOCATION: [facility] ATTENDING PHYSICIAN: JOVANNY PARMAR CSN NUMBER: [id number] DATE OF SURGERY/PROCEDURE: 09/05/2019 INCISION/PROCEDURE START TIME: 12:28 PM INCISION CLOSE/PROCEDURE END TIME: 2:14 PM PREOPERATIVE DIAGNOSIS: Gangrenous right lower extremity, status post guillotine amputation below the knee. POSTOPERATIVE DIAGNOSIS: Gangrenous right lower extremity, status post guillotine amputation below the knee. SURGEON: Ryan Allen MD, FACS INDUSTRIAL ROOFER: Tom Prescott DO, resident, also salesperson surgical appliances is Irvin Walker. SURGERY/PROCEDURE: Revision of a [...] tuberosity location and also used the oscillating [place] saw to divide the fibula slightly proximal [...] satisfactory postop condition. Ryan Allen MD, FACS RGN:[id number] Normal [facility] PROGRESSon 09-07-2019 PROGRESS HNO ID: [id number] Author: Jennifer Crooks Service: Vascular Surgery Author [...] (Temporal) Resp 16 Ht 177.8 cm (5' 10) Wt 90 kg (198 lb 6.6 oz) SpO2 97% BMI 28.47 kg/m? O2 Therapy: Room Air IANDO: Date 09/06/19 07 - 09/07/19 0659 09/07/19 07 - 09/08/19 0659 Shift 3439-7582 8204-8974 0620-1720 24 Hour Total 0562-9383 0347-8869 0810-7643 24 Hour Total INTAKE Shift Total OUTPUT Urine 550 687 792 6231 Void (ml) 550 003 939 6269 Shift Total 550 794 842 8565 Weight (kg) 89.3 89.3 90 90 90 [...] (Temporal) Resp 16 Ht 177.8 cm (5' 10) Wt 90 kg (198 lb 6.6 oz) [...] lower extremity angiogram with partial occlusion R PLASTIC TILE SETTER, reconstitution at R below knee pop, 2-vessel [...] edema, no bleeding Nori consult for stump recycling specialist 09/06 - Pain control - PT/OT recs: acute rehab - [facility] ppx - Mobilization as able, out of bed to chair?as tolerated - PAD - continue statin?and aspirin - [facility] Service Pager: For questions or concerns Mon-Mon 6a-5p please page [phone]. After 5pm and on Weekends and Holidays, please page [phone] if in ICU or [phone] if on RNF. SIGNATURE: Jennifer Crooks MD PATIENT NAME: Elizabeth Modi DATE: September 07, 2019 TIME: 6:39 AM Pager: Normal [facility] Phosphorus Bloodon 03-21-202 0 Phosphate [Mass/Vol] 3.0 mg/dL Normal 2.5-4.9 [facility] Comment on above: Performed By: #### C BC1 #### [facility] 1 [place], [place] [address] Basic Panelon 09-06-2019 Creatinine [Mass/Vol] 0.70 mg/dL Normal 0.67-1.17 [facility] Comment on above: Result Comment: Use of this assay is not recommended for patients undergoing treatment with phenindione, due to the potential for falsely depressed results. Performed By: #### C _ANA #### [facility] 1 [place] [address] Anion gap [Moles/Vol] 10 mmol/L Normal 8-16 [facility] Comment on above: Performed By: #### C _ANA #### [facility] [address] [place] [address] CO2 [Moles/Vol] 24 mmol/L Normal 21-32 [facility] Comment on above: Performed By: #### C _ANA #### [facility] [address] [place], [place] [address] Urea nitrogen [Mass/Vol] 14 mg/dL Normal 7-18 [facility] Comment on above: Performed By: #### C _ANA #### [facility] [address] [place], [place] [address] Calcium [Mass/Vol] 8.1 mg/dL Low 8.5-10.1 [facility] Comment on above: Performed By: #### C _ANA #### [facility] [address] [place], [place] [address] Glucose [Mass/Vol] 157 mg/dL High 70-99 [facility] Comment on above: Performed By: #### C _ANA #### [facility] [address] [place], [place] [address] Chloride [Moles/Vol] 106 mmol/L Normal 98-107 [facility] Comment on above: Performed By: #### C _ANA #### [facility] [address] [place], [place] [address] Potassium [Moles/Vol] 4.4 mmol/L Normal 3.5-5.1 [facility] Comment on above: Performed By: #### C _ANA #### [facility] [address] [place], [place] [address] Sodium [Moles/Vol] 136 mmol/L Normal 136-145 [facility] Comment on above: Performed By: #### C _ANA #### [facility] [address] [place], [place] [address] CASE MGT INIT ASSESon 2019 CASE MGT INIT ASS HNO ID: [id number] Author: Tami (Rn) KAVIN Patricio Service: Care Management Author Type: Registered Nurse Type: Care Mgt Initial Assessment Filed: 09/06/2019 2:24 PM Note Text: CARE MANAGEMENT PROGRESS NOTE SERVICE DATE: 09/06/2019 SERVICE TIME: 2:23 PM LOS: 16 days Chart reviewed. Plan for [facility] - precert pending. Pt will need cot for transport. Will follow. SIGNATURE: Tami Patricio RN PATIENT NAME: Elizabeth Modi DATE: September 06, 2019 TIME: 2:22 PM PAGER/CONTACT #: [phone] [facility] CONSULT PROGon 09-06-2019 CONSULT PROG HNO ID: [id number] Author: Luke Briones (Gurwinder) Sailaja Service: Wound/Ostomy Author Type: Nurse Practitioner Type: Consult Progress Note Filed: 09/06/2019 9:52 AM Note Text: WOUND CARE PROGRESS CLINICAL SPECIALIST NOTE SERVICE DATE: 09/06/2019 SERVICE TIME: [...] who is seen today with Zee Alba, Wound/irrigation district manager, and presented to hospital with complaints [...] (Oral) Resp 20 Ht 177.8 cm (5' 10) Wt 89.3 kg (196 lb 12.8 oz) [...] left heel and seat cushion. Will reorder [id number] mattress as patient is still on regular mattress and turn and reposition every 2 hours or more often. A photo was taken of the patient's wound(s). Photos can be found under the Get Images tab on Quantitative Medicine. Photos are uploaded by the wound senior care manager and may not be immediately available for viewing. Contact the wound and ostomy care department with questions. SIGNATURE: Luke Menard APRN.CLINIC CHARGE NURSE,CWOCN PATIENT NAME: Elizabeth Modi DATE: September 06, 2019 TIME: 9:45 AM CONTACT#: [id number] [facility] CONSULT PROG HNO ID: [id number] Author: Doris Eden Service: Endocrinology Author Type: Physician Type: Consult Progress Note Filed: 09/06/2019 7:59 AM Note Text: ENDOCRINOLOGY CONSULT PROGRESS NOTE SERVICE DATE: 09/06/2019 SERVICE TIME: 7:45 AM Subjective INTERVAL HPI: Pt followed for diabetes mellitus type 2 with complications. Tr from [facility]; adm for right foot infection and gangrene; [...] (Src) 97.9 (Oral) Resp 20 Ht 5' 10 (1.78m) Wt 196 lb 12.8 oz (89.3kg) [...] width (RBC) [Ratio] 16.2 % High 11.6-14.4 [facility] Comment on above: Performed By: #### F ERR #### [facility] 1 [place] [address] Hematocrit (Bld) [Volume fraction] 26.4 % Low 40.1-51.0 [facility] Comment on above: Performed By: #### F ERR #### [place] [address] Hemoglobin (Bld) [Mass/Vol] 8.2 g/dL Low 13.7-17.5 [facility] Comment on above: Performed By: #### F ERR #### [place] [address] MCH (RBC) [Entitic mass] 28.5 pg Normal 25.7-32.2 [facility] Comment on above: Performed By: #### F ERR #### [place] [address] MCHC (RBC) [Mass/Vol] 31.1 % Low 32.3-36.5 [facility] Comment on above: Performed By: #### F ERR #### [place] [address] MCV (RBC) [Entitic vol] 91.7 fL Normal 83.2-95.6 [facility] Comment on above: Performed By: #### F ERR #### [facility] 1 [place] [address] Platelet mean volume (Bld) [Entitic vol] 9.7 fL Normal 8.7-12.0 [facility] Comment on above: Performed By: #### F ERR #### [place] [id number] Platelets (Bld) [#/Vol] 410 thou/cmm High 141-365 [facility] Comment on above: Performed By: #### F ERR #### [facility] [address] [place] [address] RBC (Bld) [#/Vol] 2.88 mil/cmm Low 4.63-6.08 [facility] Comment on above: Performed By: #### F ERR #### [facility] [address] [place] [address] RDW SD 53.9 fl High 36.1-45.8 [facility] Comment on above: Performed By: #### F ERR #### [facility] [address] [place] [address] WBC (Bld) [#/Vol] 10.15 thou/cmm High 4.23-9.07 [facility] Comment on above: Performed By: #### F ERR #### [facility] [address] [place] [address] Magnesium Bloodon 09-06-2019 Magnesium [Mass/Vol] 1.5 mg/dL Low 1.6-2.6 [facility] Comment on above: Performed By: #### C _ANA #### [place] [address] NUTRITIONon 09-06-2019 NUTRITION HNO ID: [id number] Author: Tanja Zimmerman) ALEIDA Byrne Service: Nutrition [...] condition;Depletion of fat/muscle stores Estimated kilocalorie needs: 0388-6627 Calorie Calculation Method: 30-35 kcals/kg Estimated protein [...] HEART HEALTHY Anthropometrics: Height: 177.8 cm (5' 10) Weight: 89.3 kg (196 lb 12.8 oz) [...] September 06, 2019 TIME: 9:53 AM PAGER: [phone] Normal [facility] PROGRESSon 09-06-2019 PROGRESS HNO ID: [id number] Author: Tom Prescott DO Service: General Surgery [...] stump. Prosthetics company to visit for stump recycling specialist hopefully tomorrow as well Signature: Ryan [...] (Oral) Resp 20 Ht 177.8 cm (5' 10) Wt 89.3 kg (196 lb 12.8 oz) SpO2 95% BMI 28.24 kg/m? O2 Therapy: Room Air IANDO: Date 09/05/[address] - 09/06/19 0659 09/06/19 07 - 09/07/19 0659 Shift 8206-8652 0658-0418 4885-8531 24 Hour Total 4454-5245 7963-9177 3287-7831 24 Hour Total INTAKE PO 240 240 480 PO 240 240 480 IV 750 100 850 OR Crystalloid intake (mL) 750 750 Volume (mL) (lactated ringers infusion) 100 100 Shift Total 750 279 686 8594 OUTPUT Urine 150 1100 1300 2550 Void [...] lower extremity angiogram with partial occlusion R PLASTIC TILE SETTER, reconstitution at R below knee pop, 2-vessel runoff. Antibiotics stopped 08/23, remains non-septic. 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 09/02 PVR R calf 0.51, R low thigh 0.74. 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 Dressing to be taken down tomorrow 09/06 Nori consult for stump recycling specialist 09/06 - Pain control - PT/OT [...] 0 Phosphate [Mass/Vol] 2.9 mg/dL Normal 2.5-4.9 [facility] Comment on above: Performed By: #### M AG #### [facility] [address] [place] [address] THERAPY NTon 09-06-2019 THERAPY NT HNO ID: [id number] Author: Briana (Otr/Vickie Watson Service: Occupational Therapy Author Type: Occupational Therapist Type: Therapy (PT/OT/Speech/Resp) Filed: 09/06/2019 3:43 PM Note Text: Occupational Therapy Treatment SERVICE DATE: 09/06/2019 SERVICE TIME: 1519 to 1533 ROOM: [place] [address] Recommended Discharge Disposition: Acute Rehab Recommended Discharge [...] feet;General symptoms and signs-other Interventions Provided: Self Assisted Management (35759) Self Assisted Management (71196) Treatment Minutes: 14 1 unit Skilled Intervention(s): [...] On 09/05/19 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 SIGNATURE: Briana Walter, OTR/L PATIENT NAME: Elizabeth Modi DATE: September 06, 2019 TIME: 3:38 PM Normal [facility] THERAPY NT HNO ID: [id number] Author: Marilyn (Pt) Mark Service: Physical Therapy Author Type: Physical Therapist Type: Therapy (PT/OT/Speech/Resp) Filed: 09/06/2019 12:03 PM Note Text: Physical Therapy Treatment SERVICE DATE: 09/06/2019 SERVICE TIME: 1109 to 1119 ROOM: [place] [address] Recommended Discharge Disposition: Acute Rehab Recommended Discharge [...] l;Muscle Weakness (generalized) Interventions Provided: Therapeutic Activity (80587) Therapeutic Activity (04716) Treatment Minutes: 10 1 unit Skilled Intervention(s): [...] 2019 ABO group Nom (Bld) A Normal [facility] Comment on above: Performed By: #### G LMET #### [place] [address] RH Type Positive Normal [facility] Comment on above: Performed By: #### G LMET #### [place] [address] ANES [place] 09-05-2019 ANES POST HNO ID: [id number] Author: Sj Huizar Service: Anesthesiology Author Type: [...] 2019 TIME: 5:54 PM PAGER/CONTACT #: [phone] [facility] ANES PREOPon 09-05-2019 ANES PREOP HNO ID: [id number] Author: Al Pugh Service: Anesthesiology Author Type: Physician Type: Anesthesia PreOp Filed: 09/05/2019 11:42 AM Note Text: ANESTHESIOLOGY DAY OF SURGERY NOTE SERVICE DATE: 09/05/2019 SERVICE TIME: 11:39 AM : 1940 Procedure(s) (LRB): AMPUTATION REVISION BELOW KNEE (Right) Surgeon(s): Ryan Allen Estimated body mass index is 27.89 kg/m? as calculated from the following: Height as of this encounter: 177.8 cm (5' 10). Weight as of this encounter: 88.2 kg [...] September 05, 2019 TIME: 11:39 AM CSN: [id number] [facility] BRIEF OP NOTon 09-05-2019 BRIEF OP NOT HNO ID: [id number] Author: Tom Prescott DO Service: General Surgery [...] BRIEF OPERATIVE / PROCEDURE NOTE LOG ID: [id number] SURGERY/PROCEDURE DATE: 09/05/2019 INCISION/PROCEDURE START TIME: 12:28 PM INCISION CLOSE/PROCEDURE END TIME: 2:14 PM SURGEON(S)/PROCEDURALI ST(S) AND INDUSTRIAL ROOFER(S): Surgeon(s) and Role: * Ryan Allen - Primary * Tom Prescott DO - Resident - Assisting Automation Controls Engineer: Irvin Walker SA SURGERY/PROCEDURE(S): Revision of prior [...] 09-05-2019 Creatinine [Mass/Vol] 0.73 mg/dL Normal 0.67-1.17 [facility] Comment on above: Result Comment: Use of this assay is not recommended for patients undergoing treatment with phenindione, due to the potential for falsely depressed results. Performed By: #### F ERR #### [facility] [address] [place], [place] [address] Anion gap [Moles/Vol] 9 mmol/L Normal 8-16 [facility] Comment on above: Performed By: #### F ERR #### [facility] [address] [place], [place] [address] Calcium [Mass/Vol] 7.8 mg/dL Low 8.5-10.1 [facility] Comment on above: Performed By: #### F ERR #### [facility] [address] [place], [place] [address] CO2 [Moles/Vol] 26 mmol/L Normal 21-32 [facility] Comment on above: Performed By: #### F ERR #### [facility] [address] [place], [place] [address] Glucose [Mass/Vol] 137 mg/dL High 70-99 [facility] Comment on above: Performed By: #### F ERR #### [facility] [address] [place], [place] [address] Urea nitrogen [Mass/Vol] 17 mg/dL Normal 7-18 [facility] Comment on above: Performed By: #### F ERR #### [facility] [address] [place], [place] [address] Chloride [Moles/Vol] 105 mmol/L Normal 98-107 [facility] Comment on above: Performed By: #### F ERR #### [facility] [address] [place], [place] [address] Potassium [Moles/Vol] 4.1 mmol/L Normal 3.5-5.1 [facility] Comment on above: Performed By: #### F ERR #### [facility] [address] [place], [place] [address] Sodium [Moles/Vol] 136 mmol/L Normal 136-145 [facility] Comment on above: Performed By: #### F ERR #### [facility] [address] [place], [place] [address] CONSULT PROGon 09-05-2019 CONSULT PROG HNO ID: [id number] Author: Doris Eden Service: Endocrinology Author Type: Physician Type: Consult Progress Note Filed: 09/05/2019 8:01 AM Note Text: ENDOCRINOLOGY CONSULT PROGRESS NOTE SERVICE DATE: 09/05/2019 SERVICE TIME: 7:50 AM Subjective INTERVAL HPI: Pt followed for diabetes mellitus type 2 with complications. Tr from [facility]; adm for right foot infection and gangrene; [...] (Src) 99.1 (Oral) Resp 18 Ht 5' 10 (1.78m) Wt 194 lb 6.4 oz (88.2kg) [...] width (RBC) [Ratio] 16.0 % High 11.6-14.4 [facility] Comment on above: Performed By: #### G LMET #### [place] [address] Hematocrit (Bld) [Volume fraction] 25.4 % Low 40.1-51.0 [facility] Comment on above: Performed By: #### G LMET #### [facility] 1 [place] [address] Hemoglobin (Bld) [Mass/Vol] 8.1 g/dL Low 13.7-17.5 [facility] Comment on above: Performed By: #### G LMET #### [facility] 1 [place] [address] MCH (RBC) [Entitic mass] 29.1 pg Normal 25.7-32.2 [facility] Comment on above: Performed By: #### G LMET #### [facility] 1 [place] [address] MCHC (RBC) [Mass/Vol] 31.9 % Low 32.3-36.5 [facility] Comment on above: Performed By: #### G LMET #### [facility] 1 [place] [address] MCV (RBC) [Entitic vol] 91.4 fL Normal 83.2-95.6 [facility] Comment on above: Performed By: #### G LMET #### [facility] 1 [place] [address] Platelet mean volume (Bld) [Entitic vol] 9.7 fL Normal 8.7-12.0 [facility] Comment on above: Performed By: #### G LMET #### [facility] 1 [place] [address] Platelets (Bld) [#/Vol] 387 thou/cmm High 141-365 [facility] Comment on above: Performed By: #### G LMET #### [facility] [address] [place] [address] RBC (Bld) [#/Vol] 2.78 mil/cmm Low 4.63-6.08 [facility] Comment on above: Performed By: #### G LMET #### [facility] [address] [place] [address] RDW SD 52.4 fl High 36.1-45.8 [facility] Comment on above: Performed By: #### G LMET #### [facility] [address] [place], [place] [address] WBC (Bld) [#/Vol] 9.06 thou/cmm Normal 4.23-9.07 [facility] Comment on above: Performed By: #### G LMET #### [facility] [address] [place], [place] [address] Magnesium Bloodon 09-05-2019 Magnesium [Mass/Vol] 1.3 mg/dL Low 1.6-2.6 [facility] Comment on above: Performed By: #### C _ANA #### [facility] [address] [place], [place] [address] PROGRESSon 09-05-2019 PROGRESS HNO ID: [id number] Author: Francine Roberts Service: Vascular Surgery Author [...] questions or concerns Mon-Mon 6a-5p please page [phone]. After 5pm and on Weekends and Holidays, please page [phone] if in ICU or [phone] if on RNF. Subjective SUBJECTIVE: Denies pain. Feeling well overall. Ready to get today's surgery over with. Objective OBJECTIVE: Vitals: Temp (24hrs), Av.8 ?C (98.3 ?F), Min:36.5 ?C (97.7 ?F), Max:37.3 ?C (99.1 ?F) BP (!) 117/44 Pulse 73 Temp 37.3 ?C (99.1 ?F) (Oral) Resp 18 Ht 177.8 cm (5' 10) Wt 89.4 kg (197 lb 3.2 oz) SpO2 96% BMI 28.30 kg/m? O2 Therapy: Room Air IANDO: Date 09/04/19699 - 09/05/1965809/05/19 07 - 09/06/19 0659 Shift 4985-1568 6572-5296 3613-5619 24 Hour Total 2857-7841 0084-0069 0126-1811 24 Hour Total INTAKE Shift Total OUTPUT Urine 650 428 937 0051 Void (ml) 650 034 444 7965 Shift Total 650 039 292 0336 Weight (kg) 89.4 89.4 89.4 89.4 89.4 [...] - Malnutrition of moderate degree ([facility]) 08/22/2019 - Gangrene of foot (HCC) 08/21/2019 - Diabetes (HCC) 08/21/2019 - HTN (hypertension) 08/21/2019 - Dyslipidemia 08/21/2019 - Hypothyroidism 08/21/2019 This is a 79 year old male with PMH of thyroid disease, HTN, dyslipidemia,claudicat ion, DM. 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 Thrombi are not present. Pipe And Test Supervisor sections are submitted as follows: 1 - soft tissue line of resection (black ink); 2-3 - sales and merchandising representative sections of red-pink ischemic process at distal aspect; 4 - sales and merchandising representative sections of vessels; 5 - sales and merchandising representative section of bone following a period of decalcification. KVB:cindi ARENAS M.D. (Electronic signature on file) Signed out: 09/09/2019 14:52 PRINTED: 09/09/[address] [facility] Comment on above: Performed By: #### M AG #### [place] [address] Type and Screenon 09-05-2019 ABO group Nom (Bld) A Normal [facility] Comment on above: Performed By: #### M AG #### [place] [address] Comment See Below Normal [facility] Comment on above: Result Comment: Scre en &/or Xmatch expires in 3 days at 12 midnight. Redraw patient at that time. Performed By: #### M AG #### [place] [address] RH Type Positive Normal [facility] Comment on above: Performed By: #### M AG #### [facility] [address] [place], [place] [address] Basic Panelon 09-04-2019 Creatinine [Mass/Vol] 0.87 mg/dL Normal 0.67-1.17 [facility] Comment on above: Result Comment: Use of this assay is not recommended for patients undergoing treatment with phenindione, due to the potential for falsely depressed results. Performed By: #### F ERR #### [facility] [address] [place], [place] [address] Anion gap [Moles/Vol] 8 mmol/L Normal 8-16 [facility] Comment on above: Performed By: #### F ERR #### [facility] [address] [place], [place] [address] Calcium [Mass/Vol] 8.0 mg/dL Low 8.5-10.1 [facility] Comment on above: Performed By: #### F ERR #### [address] [address] CO2 [Moles/Vol] 25 mmol/L Normal 21-32 [facility] Comment on above: Performed By: #### F ERR #### [facility] [address] [place], [place] [address] Glucose [Mass/Vol] 113 mg/dL High 70-99 [facility] Comment on above: Performed By: #### F ERR #### [facility] [address] [place], [place] [address] Urea nitrogen [Mass/Vol] 23 mg/dL High 7-18 [facility] Comment on above: Performed By: #### F ERR #### [facility] [address] [place], [place] [address] Chloride [Moles/Vol] 110 mmol/L High 98-107 [facility] Comment on above: Performed By: #### F ERR #### [facility] [address] [place], [place] [address] Potassium [Moles/Vol] 4.0 mmol/L Normal 3.5-5.1 [facility] Comment on above: Performed By: #### F ERR #### [facility] [address] [place], [place] [address] Sodium [Moles/Vol] 139 mmol/L Normal 136-145 [facility] Comment on above: Performed By: #### F ERR #### [facility] 1 [place] [address] CASE MANAGEMon 09-04-2019 CASE MANAGEM HNO ID: [id number] Author: Tami SantiagoRn) KAVIN Patricio Service: Care Management Author Type: Registered Nurse Type: Care Mgt Progress Note Filed: 09/04/2019 9:41 AM Note Text: CARE MANAGEMENT PROGRESS NOTE SERVICE DATE: 09/04/2019 SERVICE TIME: 9:36 AM LOS: 14 days Chart reviewed. 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 Plan for [facility] at d/c. Pt will need auth when medically stable and likely cot transport. Will follow. SIGNATURE: Tami Patricio RN PATIENT NAME: Elizabeth Modi DATE: September 04, 2019 TIME: 9:36 AM PAGER/CONTACT #: [phone] Normal [facility] CONSULT PROGon 09-04-2019 CONSULT PROG HNO ID: [id number] Author: Doris Eden Service: Endocrinology Author Type: Physician Type: Consult Progress Note Filed: 09/04/2019 9:41 AM Note Text: ENDOCRINOLOGY CONSULT PROGRESS NOTE SERVICE DATE: 09/04/2019 SERVICE TIME: 9:20 AM Subjective INTERVAL HPI: Pt followed for diabetes mellitus type 2 with complications. Tr from [facility]; adm for right foot infection and gangrene; [...] (Src) 97.3 (Oral) Resp 18 Ht 5' 10 (1.78m) Wt 197 lb 3.2 oz (89.4kg) [...] width (RBC) [Ratio] 15.8 % High 11.6-14.4 [facility] Comment on above: Performed By: #### F ERR #### [facility] [address] [place] [address] Hematocrit (Bld) [Volume fraction] 27.6 % Low 40.1-51.0 [facility] Comment on above: Performed By: #### F ERR #### [facility] [address] [place] [address] Hemoglobin (Bld) [Mass/Vol] 8.3 g/dL Low 13.7-17.5 [facility] Comment on above: Performed By: #### F ERR #### [place] [address] MCH (RBC) [Entitic mass] 28.0 pg Normal 25.7-32.2 [facility] Comment on above: Performed By: #### F ERR #### [facility] [address] [place] [address] MCHC (RBC) [Mass/Vol] 30.1 % Low 32.3-36.5 [facility] Comment on above: Performed By: #### F ERR #### [place] [address] MCV (RBC) [Entitic vol] 93.2 fL Normal 83.2-95.6 [facility] Comment on above: Performed By: #### F ERR #### [facility] 1 [place] [address] Platelet mean volume (Bld) [Entitic vol] 10.0 fL Normal 8.7-12.0 [facility] Comment on above: Performed By: #### F ERR #### [facility] 1 [place] [id number] Platelets (Bld) [#/Vol] 371 thou/cmm High 141-365 [facility] Comment on above: Performed By: #### F ERR #### [facility] [address] [place], [place] [address] RBC (Bld) [#/Vol] 2.96 mil/cmm Low 4.63-6.08 [facility] Comment on above: Performed By: #### F ERR #### [facility] [address] [place], [place] [address] RDW SD 51.6 fl High 36.1-45.8 [facility] Comment on above: Performed By: #### F ERR #### [facility] [address] [place], [place] [address] WBC (Bld) [#/Vol] 9.95 thou/cmm High 4.23-9.07 [facility] Comment on above: Performed By: #### F ERR #### [facility] [address] [place] [address] Magnesium Bloodon 09-04-2019 Magnesium [Mass/Vol] 1.8 mg/dL Normal 1.6-2.6 [facility] Comment on above: Performed By: #### M AG #### [facility] [address] [place] [address] PROGRESSon 09-04-2019 PROGRESS HNO ID: [id number] Author: Francine Roberts Service: Vascular Surgery Author [...] questions or concerns Mon-Mon 6a-5p please page [phone]. After 5pm and on Weekends and Holidays, please page [phone] if in ICU or [phone] if on RNF. Subjective SUBJECTIVE: Complaining of some lower back/buttock pain from sitting in his chair yesterday. Otherwise feeling well. Objective OBJECTIVE: Vitals: Temp (24hrs), Av.4 ?C (97.6 ?F), Min:35.9 ?C (96.6 ?F), Max:36.8 ?C (98.2 ?F) BP 114/56 Pulse 72 Temp 36.3 ?C (97.3 ?F) (Oral) Resp 18 Ht 177.8 cm (5' 10) Wt 89.4 kg (197 lb 3.2 oz) SpO2 98% BMI 28.30 kg/m? O2 Therapy: Room Air IANDO: Date 09/03/196[address] - 09/04/19 0659 09/04/19 07 - 09/05/19 0659 Shift 0739-6124 5478-7453 5876-9814 24 Hour Total 6713-5683 4702-4110 8904-6508 24 Hour Total INTAKE IV 611 611 Volume (mL) (lactated ringers infusion) 511 511 Volume (mL) (magnesium sulfate in sterile water 4 g iv piggyback) 100 100 Shift Total 611 611 OUTPUT Urine 564 275 4897 Void (ml) 974 800 3552 Shift Total 739 778 7066 Weight (kg) 91.4 91.4 89.4 89.4 89.4 [...] lower extremity angiogram with partial occlusion R PLASTIC TILE SETTER, reconstitution at R below knee pop, 2-vessel [...] 0 Phosphate [Mass/Vol] 2.2 mg/dL Low 2.5-4.9 [facility] Comment on above: Performed By: #### C _ANA #### [facility] 1 [place] [id number] THERAPY NTon 09-04-2019 THERAPY NT HNO ID: [id number] Author: Marilyn (Pt) Mark Service: Physical Therapy Author Type: Physical Therapist Type: Therapy (PT/OT/Speech/Resp) Filed: 09/04/2019 3:34 PM Note Text: PHYSICAL THERAPY MISSED VISIT SERVICE DATE: 09/04/2019 SERVICE TIME: 1532 to 1532 ROOM: [place] [address] Attempted Treatment. Patient not seen due to Declined. Patient reports he is extremely tired today and is having his procedure tomorrow. States he is not feeling up to it today despite encouragement. Educated patient that we will visit him after his procedure. SIGNATURE: Marilyn Flores, PT PATIENT NAME: Elizabeth Modi DATE: September 04, 2019 TIME: 3:33 PM Normal [facility] ANES [place] 09-03-2019 ANES POST HNO ID: [id number] Author: Dwayne Kerns Service: Anesthesiology Author Type: Physician Type: Anesthesia PostOp Filed: 09/02/2019 11:44 PM Note Text: POST ANESTHESIA EVALUATION NOTE SERVICE DATE: 09/02/2019 SERVICE TIME: 11:44 PM : 1941 Vitals: 09/02/19 0502 09/02/19 0906 09/02/19 1500 09/02/19 1900 Temp: 36.8 ?C (98.2 ?F) 36.1 ?C (97 ?F) 36 ?C (96.8 ?F) 36.3 ?C (97.3 ?F) 09/02/19 2000 09/02/19 2100 09/02/19 2200 09/02/19 2300 BP: 98/51 94/51 (!) 99/47 (!) [...] 02, 2019 TIME: 11:44 PM PAGER/CONTACT #: [phone] Normal [facility] Basic Panelon 09-03-2019 Creatinine [Mass/Vol] 0.90 mg/dL Normal 0.67-1.17 [facility] Comment on above: Result Comment: Use of this assay is not recommended for patients undergoing treatment with phenindione, due to the potential for falsely depressed results. Performed By: #### C BC1 #### [address] [address] Anion gap [Moles/Vol] 7 mmol/L Low 8-16 [facility] Comment on above: Performed By: #### C BC1 #### [address] [address] Calcium [Mass/Vol] 7.9 mg/dL Low 8.5-10.1 [facility] Comment on above: Performed By: #### C BC1 #### [address] [address] CO2 [Moles/Vol] 27 mmol/L Normal 21-32 [facility] Comment on above: Performed By: #### C BC1 #### [address] [address] Glucose [Mass/Vol] 135 mg/dL High 70-99 [facility] Comment on above: Performed By: #### C BC1 #### [facility] [address] [place], [place] [address] Urea nitrogen [Mass/Vol] 25 mg/dL High 7-18 [facility] Comment on above: Performed By: #### C BC1 #### [facility] [address] [place], [place] [address] Chloride [Moles/Vol] 106 mmol/L Normal 98-107 [facility] Comment on above: Performed By: #### C BC1 #### [facility] [address] [place], [place] [address] Potassium [Moles/Vol] 4.4 mmol/L Normal 3.5-5.1 [facility] Comment on above: Performed By: #### C BC1 #### [facility] [address] [place], [place] [address] Sodium [Moles/Vol] 136 mmol/L Normal 136-145 [facility] Comment on above: Performed By: #### C BC1 #### [facility] [address] [place], [place] [address] CASE MANAGEMon 09-03-2019 CASE MANAGEM HNO ID: [id number] Author: Ammy (Rn) KAVIN Gutierres Service: ? [...] 03, 2019 TIME: 9:50 AM PAGER/CONTACT #: [phone] [facility] CONSULT PROGon 09-03-2019 CONSULT PROG HNO ID: [id number] Author: Doris Eden Service: Endocrinology Author Type: Physician Type: Consult Progress Note Filed: 09/03/2019 8:39 AM Note Text: ENDOCRINOLOGY CONSULT PROGRESS NOTE SERVICE DATE: 09/03/2019 SERVICE TIME: 8:05 AM Subjective INTERVAL HPI: Pt followed for diabetes mellitus type 2 with complications. Tr from [facility]; adm for right foot infection and gangrene; [...] (Src) 97.5 (Temporal) Resp 16 Ht 5' 10 (1.78m) Wt 201 lb 8 oz (91.4kg) [...] width (RBC) [Ratio] 15.4 % High 11.6-14.4 [facility] Comment on above: Performed By: #### M AG #### [place] [address] Hematocrit (Bld) [Volume fraction] 28.1 % Low 40.1-51.0 [facility] Comment on above: Performed By: #### M AG #### [place] [address] Hemoglobin (Bld) [Mass/Vol] 8.9 g/dL Low 13.7-17.5 [facility] Comment on above: Performed By: #### M AG #### [place] [address] MCH (RBC) [Entitic mass] 29.1 pg Normal 25.7-32.2 [facility] Comment on above: Performed By: #### M AG #### [place] [address] MCHC (RBC) [Mass/Vol] 31.7 % Low 32.3-36.5 [facility] Comment on above: Performed By: #### M AG #### [place] [id number] MCV (RBC) [Entitic vol] 91.8 fL Normal 83.2-95.6 [facility] Comment on above: Performed By: #### M AG #### [facility] [address] [place] [address] Platelet mean volume (Bld) [Entitic vol] 9.4 fL Normal 8.7-12.0 [facility] Comment on above: Performed By: #### M AG #### [place] [address] Platelets (Bld) [#/Vol] 410 thou/cmm High 141-365 [facility] Comment on above: Performed By: #### M AG #### [place] [address] RBC (Bld) [#/Vol] 3.06 mil/cmm Low 4.63-6.08 [facility] Comment on above: Performed By: #### M AG #### [place] [address] RDW SD 48.7 fl High 36.1-45.8 [facility] Comment on above: Performed By: #### M AG #### [facility] [address] [place] [address] WBC (Bld) [#/Vol] 12.94 thou/cmm High 4.23-9.07 [facility] Comment on above: Performed By: #### M AG #### [place] [address] Magnesium Bloodon 09-03-2019 Magnesium [Mass/Vol] 1.4 mg/dL Low 1.6-2.6 [facility] Comment on above: Performed By: #### M AG #### [place] [address] NURSING PROGon 09-03-2019 NURSING PROG HNO ID: [id number] Author: Kassidy (Rn) KAVIN Lew Service: Nursing Author Type: Registered Nurse Type: Nursing Progress Note Filed: 09/03/2019 11:57 AM Note Text: Nursing Progress Note Patient Name: Elizabeth Modi Patient Location: [id number] __ Daily Note: 1047--report called to Darrin Chau RN. 1113--pt transferred to 4226 via chair on RA with Rn and Sr Tech. Pt remains in chair, chair locked, call light within reach, tele applied. KAVIN Chau in room. This note was completed by: Kassidy Lew RN [facility] PROGRESSon 09-03-2019 PROGRESS HNO ID: [id number] Author: Francine Roberts Service: Vascular Surgery Author [...] questions or concerns Mon-Fri 6a-5p please page [phone]. After 5pm and on Weekends and Holidays, please page [phone] if in ICU or [phone] if on RNF. Subjective SUBJECTIVE: SARATH. Says he thinks his Right leg feels better since the surgery. Denies pain in his Right groin. Had some dinner last night. Objective OBJECTIVE: Vitals: Temp (24hrs), Av.2 ?C (97.2 ?F), Min:36 ?C (96.8 ?F), Max:36.4 ?C (97.5 ?F) BP (!) 113/47 Pulse 63 Temp 36.4 ?C (97.5 ?F) (Temporal) Resp 13 Ht 177.8 cm (5' 10) Wt 91.4 kg (201 lb 8 oz) SpO2 93% BMI 28.91 kg/m? O2 Therapy: Room Air IANDO: Date 09/02/19 07 - 09/03/19 0659 09/03/19 07 - 09/04/19 0659 Shift 6474-8384 4822-4637 7625-3660 24 Hour Total 9845-2524 1053-7517 8829-4842 24 Hour Total INTAKE Shift Total OUTPUT [...] lower extremity angiogram with partial occlusion R PLASTIC TILE SETTER, reconstitution at R below knee pop, 2-vessel [...] then determination on AKA/BKA - transfer to [facility] today SIGNATURE: Francine Roberts MD PATIENT [...] 0 Phosphate [Mass/Vol] 2.9 mg/dL Normal 2.5-4.9 [facility] Comment on above: Performed By: #### P 8 #### [facility] [address] [place] [id number] THERAPY NTon 09-03-2019 THERAPY NT HNO ID: [id number] Author: Tamiko SantiagoOtr/Vickie Nur Service: Occupational Therapy Author Type: Occupational Therapist Type: Therapy (PT/OT/Speech/Resp) Filed: 09/03/2019 9:19 AM Note Text: Occupational Therapy Evaluation(Re-Evaluati on) SERVICE DATE: 09/03/2019 SERVICE TIME: 0845 to 0900 ROOM: [id number] Recommended Discharge Disposition: Acute Rehab [...] and signs-other Interventions Provided: Re-evaluation $ Reevaluation (13180) Billed Units: 1 unit Total Timed Code Treatment Minutes: 39 Total Treatment Time (minutes): 15 SUBJECTIVE: Current Hospital Course: Chart reviewed; R femoral endarterectomy 09/02/2019 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 I am so glad I got to the chair. Home Environment Patient Lives With: Self/Alone Assistance [...] [facility] THERAPY NT HNO ID: [id number] Author: Marilyn (Pt) Mark Service: Physical Therapy Author Type: Physical Therapist Type: Therapy (PT/OT/Speech/Resp) Filed: 09/03/2019 9:12 AM Note Text: Physical Therapy Treatment SERVICE DATE: 09/03/2019 SERVICE TIME: 08 to 0853 ROOM: [place] [address] Recommended Discharge Disposition: Acute Rehab Recommended Discharge [...] Weakness (generalized) Interventions Provided: Re-evaluation $ Reevaluation (16758) Billed Units: 1 unit Re-evaluation completed due to completion of R femoral endarterectomy Therapeutic Activity (74825) Treatment Minutes: 10 1 unit Skilled Intervention(s): [...] [facility] US ARTERIAL PVR LOWERon - US ARTERIAL PVR LOWER * * *Final [...] Diabetes: Yes Clinical Indication Post operative right PLASTIC TILE SETTER endarterectomy. TECHNIQUE -------- An arterial physiological examination [...] Interpreting physician: Gordo Figueroa MD Final RP Resolution Expert: RICHARD Maririprice Date/Time: Sep 03 2019 9:25A Dictated by : GORDO FIGUEROA MD This examination was interpreted and the report reviewed and electronically signed by: GORDO FIGUEROA MD on Sep 05 2019 9:48AM EST Normal [facility] US VEIN MAPPING LOWER BILon 09-03-2019 US VEIN MAPPING LOWER JIGNA * * *Final Rep ort* * * DATE OF EXAM: Sep 02 2019 10:07PM [facility] 1081 - US VEIN MAPPING [...] lower extremity. Superficial venous measurements as above. Resolution Expert: PSCB Transcribe Date/Time: Sep 02 2019 10:28P Dictated by : DWAYNE BURTON MD This examination was interpreted and the report reviewed and electronically signed by: DWAYNE BURTON MD on Sep 02 2019 10:38PM [facility] ANES PREOPon 09-02-2019 ANES PREOP HNO ID: [id number] Author: Tammy Hinson Service: Anesthesiology Author Type: Physician Type: Anesthesia PreOp Filed: 09/02/2019 10:14 AM Note Text: ANESTHESIOLOGY DAY OF SURGERY NOTE SERVICE DATE: 09/02/2019 SERVICE TIME: 9:50 AM : 1940 Procedure(s) (LRB): ENDARTERECTOMY FEMORAL (Left) Surgeon(s): Jovanny Parmar Estimated body mass index is 27.62 kg/m? as calculated from the following: Height as of this encounter: 177.8 cm (5' 10). Weight as of this encounter: 87.3 kg [...] 4 Units SUBCUTANEOUS w MEALS Tom (Res) Westthelma, DO 4 Units at 09/01/19 175 - [MAR Hold due to Transfer] gabapentin 100 mg cap(s) (NEURONTIN) 100 mg ORAL q 8 H Tom (Res) Westthelma, DO 100 mg at 09/02/19 0453 - [...] Tom (Res) Kenyon, DO 650 mg at 09/01/1949 - [MAR Hold due to Transfer] atorvastatin 40 mg tab(s) (LIPITOR) 40 mg ORAL DAILY Tom (Res) Kenyon, DO 40 mg at 09/01/192028 - [MAR Hold due to Transfer] lisinopril 10 mg tab(s) (ZESTRIL, PRINIVIL) 10 mg ORAL DAILY Tom (Res) Kenyon, DO 10 mg at 09/01/1949 - [MAR Hold due to Transfer] levothyroxine 25 mcg tab(s) (SYNTHROID) 25 mcg ORAL DAILY Tom (Res) Kenyon, DO 25 mcg at 09/02/19 0453 - [...] September 02, 2019 TIME: 9:50 AM CSN: [id number] [facility] BRIEF OP NOTon 09-02-2019 BRIEF OP NOT HNO ID: [id number] Author: Francine Roberts Service: Vascular Surgery Author [...] BRIEF OPERATIVE / PROCEDURE NOTE LOG ID: [id number] Patient Name:Elizabeth Modi CSN: [id number] Surgery/Procedure Date: 09/02/2019 Incision/Procedure Start Time: 11:01 AM Incision Close/Procedure End Time: Surgeon(s)/Procedurali st(s) and Lead Laying And Gluing Machine Operator(s): Surgeon(s) and Role: * Jovanny Parmar - Primary * Francine Wood) Phyllis - Resident - Assisting Automation Controls Engineer: Lori Schmid SA Procedure(s): Procedure(s) (LRB): ENDARTERECTOMY [...] TIME: 12:47 PM PAGER/CONTACT #: [phone] Normal [facility] Basic Panelon 09-02-2019 Creatinine [Mass/Vol] 0.78 mg/dL Normal 0.67-1.17 [facility] Comment on above: Result Comment: Use of this assay is not recommended for patients undergoing treatment with phenindione, due to the potential for falsely depressed results. Performed By: #### M AG #### [place] [address] Anion gap [Moles/Vol] 12 mmol/L Normal 8-16 [facility] Comment on above: Performed By: #### M AG #### [place] [id number] Calcium [Mass/Vol] 8.4 mg/dL Low 8.5-10.1 [facility] Comment on above: Performed By: #### M AG #### [facility] [address] [place], [place] [address] CO2 [Moles/Vol] 24 mmol/L Normal 21-32 [facility] Comment on above: Performed By: #### M AG #### [facility] [address] [place], [place] [address] Urea nitrogen [Mass/Vol] 24 mg/dL High 7-18 [facility] Comment on above: Performed By: #### M AG #### [facility] [address] [place], [place] [address] Glucose [Mass/Vol] 148 mg/dL High 70-99 [facility] Comment on above: Performed By: #### M AG #### [facility] [address] [place], [place] [address] Chloride [Moles/Vol] 104 mmol/L Normal 98-107 [facility] Comment on above: Performed By: #### M AG #### [facility] [address] [place], [place] [address] Potassium [Moles/Vol] 4.1 mmol/L Normal 3.5-5.1 [facility] Comment on above: Performed By: #### M AG #### [facility] [address] [place], [place] [address] Sodium [Moles/Vol] 136 mmol/L Normal 136-145 [facility] Comment on above: Performed By: #### M AG #### [facility] [address] [place], [place] [address] CONSULT PROGon 09-02-2019 CONSULT PROG HNO ID: [id number] Author: Doris Eden Service: Endocrinology Author Type: Physician Type: Consult Progress Note Filed: 09/02/2019 1:35 PM Note Text: ENDOCRINOLOGY CONSULT PROGRESS NOTE SERVICE DATE: 09/02/2019 SERVICE TIME: 1:25 PM Subjective INTERVAL HPI: Pt followed for diabetes mellitus type 2 with complications. Tr from [place]; adm for right foot infection and gangrene; [...] (Src) 98.2 (Oral) Resp 18 Ht 5' 10 (1.78m) Wt 192 lb 7.4 oz (87.3kg) [...] width (RBC) [Ratio] 14.9 % High 11.6-14.4 [facility] Comment on above: Performed By: #### C BC1 #### [facility] [address] [place] [address] Hematocrit (Bld) [Volume fraction] 33.4 % Low 40.1-51.0 [facility] Comment on above: Performed By: #### C BC1 #### [place] [address] Hemoglobin (Bld) [Mass/Vol] 10.3 g/dL Low 13.7-17.5 [facility] Comment on above: Performed By: #### C BC1 #### [place] [address] MCH (RBC) [Entitic mass] 28.1 pg Normal 25.7-32.2 [facility] Comment on above: Performed By: #### C BC1 #### [place] [address] MCHC (RBC) [Mass/Vol] 30.8 % Low 32.3-36.5 [facility] Comment on above: Performed By: #### C BC1 #### [place] [address] MCV (RBC) [Entitic vol] 91.0 fL Normal 83.2-95.6 [facility] Comment on above: Performed By: #### C BC1 #### [place] [address] Platelet mean volume (Bld) [Entitic vol] 9.7 fL Normal 8.7-12.0 [facility] Comment on above: Performed By: #### C BC1 #### [facility] [address] [place], [place] [address] Platelets (Bld) [#/Vol] 425 thou/cmm High 141-365 [facility] Comment on above: Performed By: #### C BC1 #### [facility] [address] [place], [place] [address] RBC (Bld) [#/Vol] 3.67 mil/cmm Low 4.63-6.08 [facility] Comment on above: Performed By: #### C BC1 #### [facility] [address] [place], [place] [address] RDW SD 47.8 fl High 36.1-45.8 [facility] Comment on above: Performed By: #### C BC1 #### [facility] [address] [place], [place] [address] WBC (Bld) [#/Vol] 9.66 thou/cmm High 4.23-9.07 [facility] Comment on above: Performed By: #### C BC1 #### [facility] [address] [place], [place] [address] Magnesium Bloodon 09-02-2019 Magnesium [Mass/Vol] 1.5 mg/dL Low 1.6-2.6 [facility] Comment on above: Performed By: #### M AG #### [facility] [address] [place] [address] OPERATIVE NOon 09-02-2019 OPERATIVE NO HNO ID: [id number] Author: Jovanny Parmar Service: Vascular Surgery Author Type: Physician Type: Operative Report Filed: 09/30/2019 2:43 PM Note Text: [facility] - Operative Report ELIZABETH MODI : 1940 AGE: 79. SEX: M PATIENT TYPE: I HOSP SVC: KEENAN LOCATION: [facility] ATTENDING PHYSICIAN: JOVANNY PARMAR CSN NUMBER: [id number] DATE OF SURGERY/PROCEDURE: 09/02/2019 INCISION/PROCEDURE START TIME: 12:28 PM INCISION CLOSE/PROCEDURE END TIME: 2:14 PM PREOPERATIVE DIAGNOSIS: Gangrene, right lower extremity. POSTOPERATIVE DIAGNOSIS: Gangrene, right lower extremity. SURGEON: Jovanny Parmar MD INDUSTRIAL ROOFER: Francine Roberts. SURGERY/PROCEDURE: Right femoral endarterectomy with [...] recovery in stable condition. Jovanny Parmar MD LM:[id number] /[id number] [facility] PROGRESSon 09-02-2019 PROGRESS HNO ID: [id number] Author: Zack Jenkins Service: Hospital Medicine Author Type: Physician Type: Progress Notes Filed: 09/02/2019 5:22 PM Note Text: DEPARTMENT OF HOSPITAL MEDICINE PROGRESS NOTE SERVICE DATE: 09/02/2019 SERVICE TIME: 9am Hospital Medicine/Primary Attending: Zack Jenkins, NIGHT AND WEEKEND COVERAGE: After 7pm please page [phone] CHIEF COMPLAINT: No new complaints SUBJECTIVE: Pt seen and examined before procedure. No acute events overnight. Denies CP, SOB, NVD, headache, fever/chills or abdominal pain. OBJECTIVE: PHYSICAL EXAM: BP 115/46 Pulse 64 Temp (Src) 96.8 (Temporal) Resp 15 Ht 5' 10 (1.78m) Wt 192 lb 7.4 oz (87.3kg) [...] amputation -Angio 08/26 showing partial occlusion R PLASTIC TILE SETTER -Vascular and Ortho consults -Plan is for?endarterectomy [...] this note may have been generated using [employer] voice recognition software. Reasonable efforts were made to correct any dictation errors that resulted due to the programming of this software but some may still be present. Normal [facility] PROGRESS HNO ID: [id number] Author: Francine Roberts Service: Vascular Surgery Author [...] (Oral) Resp 18 Ht 177.8 cm (5' 10) Wt 87.3 kg (192 lb 7.4 oz) [...] lower extremity angiogram with partial occlusion R PLASTIC TILE SETTER, reconstitution at R below knee pop, 2-vessel [...] questions or concerns Mon-Fri 6a-5p please page [phone]. After 5pm and on Weekends and Holidays, please page [phone] if in ICU or [phone] if on RNF. Normal [facility] PT EDon 09-02-2019 PT ED HNO ID: [id number] Author: Chelsea (Rn) Shun Paz RN Service: [...] SURGERY OR Normal [facility] Phosphorus Bloodon 0 Phosphate [Mass/Vol] 2.9 mg/dL Normal 2.5-4.9 [facility] Comment on above: Performed By: #### P 8 #### [place] [address] CONSULT PROGon 09-01-2019 CONSULT PROG HNO ID: [id number] Author: Doris Eden Service: Endocrinology Author Type: Physician Type: Consult Progress Note Filed: 09/01/2019 9:12 AM Note Text: ENDOCRINOLOGY CONSULT PROGRESS NOTE SERVICE DATE: 09/01/2019 SERVICE TIME: 9:05 AM Subjective INTERVAL HPI: Pt followed for diabetes mellitus type 2 with complications. Tr from [place]; adm for right foot infection and gangrene; [...] (Src) 98.2 (Temporal) Resp 17 Ht 5' 10 (1.78m) Wt 192 lb 3.9 oz (87.2kg) [...] width (RBC) [Ratio] 14.9 % High 11.6-14.4 [facility] Comment on above: Performed By: #### M AG #### [address] [address] Hematocrit (Bld) [Volume fraction] 27.1 % Low 40.1-51.0 [facility] Comment on above: Performed By: #### M AG #### [facility] [address] [place] [address] Hemoglobin (Bld) [Mass/Vol] 8.5 g/dL Low 13.7-17.5 [facility] Comment on above: Performed By: #### M AG #### [facility] [address] [place] [address] MCH (RBC) [Entitic mass] 28.1 pg Normal 25.7-32.2 [facility] Comment on above: Performed By: #### M AG #### [facility] [address] [place] [address] MCHC (RBC) [Mass/Vol] 31.4 % Low 32.3-36.5 [facility] Comment on above: Performed By: #### M AG #### [place] [address] MCV (RBC) [Entitic vol] 89.7 fL Normal 83.2-95.6 [facility] Comment on above: Performed By: #### M AG #### [place] [address] Platelet mean volume (Bld) [Entitic vol] 9.4 fL Normal 8.7-12.0 [facility] Comment on above: Performed By: #### M AG #### [place] [address] Platelets (Bld) [#/Vol] 334 thou/cmm Normal 141-365 [facility] Comment on above: Performed By: #### M AG #### [place] [address] RBC (Bld) [#/Vol] 3.02 mil/cmm Low 4.63-6.08 [facility] Comment on above: Performed By: #### M AG #### [place] [address] RDW SD 46.4 fl High 36.1-45.8 [facility] Comment on above: Performed By: #### M AG #### [place] [address] WBC (Bld) [#/Vol] 7.69 thou/cmm Normal 4.23-9.07 [facility] Comment on above: Performed By: #### M AG #### [facility] [address] [place] [address] PROGRESSon 09-01-2019 PROGRESS HNO ID: [id number] Author: Zack Jenkins Service: Hospital Medicine Author Type: Physician Type: Progress Notes Filed: 09/01/2019 4:10 PM Note Text: DEPARTMENT OF HOSPITAL MEDICINE PROGRESS NOTE SERVICE DATE: 09/01/2019 SERVICE TIME: 4:07 PM Hospital Medicine/Primary Attending: Zack Jenkins, DO NIGHT AND WEEKEND COVERAGE: After 7pm please page [phone] CHIEF COMPLAINT: No new complaints SUBJECTIVE: Pt seen and examined. No acute events overnight. Denies CP, SOB, NVD, headache, fever/chills or abdominal pain. 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 Reasonable efforts were made to correct any dictation errors that resulted due to the programming of this software but some may still be present. Normal [facility] PROGRESS HNO ID: [id number] Author: Francine Roberts Service: Vascular Surgery Author [...] questions or concerns Mon-Mon 6a-5p please page [phone]. After 5pm and on Weekends and Holidays, please page [phone] if in ICU or [phone] if on RNF. Subjective SUBJECTIVE: NAEON. Denies pain. Understanding of plan for OR Monday. Reports he didn't get OOB yesterday. Objective OBJECTIVE: Vitals: Temp (24hrs), Av.7 ?C (98 ?F), Min:36.3 ?C (97.3 ?F), Max:36.9 ?C (98.4 ?F) BP (!) 114/43 Pulse 74 Temp 36.8 ?C (98.2 ?F) (Temporal) Resp 17 Ht 177.8 cm (5' 10) Wt 87.2 kg (192 lb 3.9 oz) SpO2 97% BMI 27.58 kg/m? O2 Therapy: Room Air IANDO: Date 08/31/19 0700 - 09/01/19 0659 09/01/19 07 - 09/02/19 0659 Shift 6632-8670 1367-0177 7900-6661 24 Hour Total 9667-9656 5629-1948 2625-5316 24 Hour Total INTAKE Shift Total OUTPUT [...] disease, HTN, dyslipidemia,claudicat ion, DM. 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 Antibiotics stopped 08/23, remains non-septic. ? Plan: -?DIET HEART HEALTHY DIET NPO ??? - Regular wound examinations, BID dressing changes, wound care following - PT/OT acute rehab - H ppx - Mobilization [...] THERAPY NTon 09-01-2019 THERAPY NT HNO ID: [id number] Author: Sheridan (Pt) Antwan Service: Physical Therapy Author Type: Physical Therapist Type: Therapy (PT/OT/Speech/Resp) Filed: 09/01/2019 4:02 PM Note Text: Physical Therapy Treatment SERVICE DATE: 09/01/2019 SERVICE TIME: 1520 to 1538 ROOM: [place] [address] Recommended Discharge Disposition: Acute Rehab Justification For [...] l;Muscle Weakness (generalized) Interventions Provided: Therapeutic Activity (49142) Therapeutic Activity (86422) Treatment Minutes: 18 1 unit Skilled Intervention(s): Functional mobility performed as described below. In EOB sitting for improved strength, ROM, conditioning, function: L ankle DF/PF, glute sets, LAQs, marching, abd/iso add, 2 x 10 reps each; instructed ex technique with short rest breaks needed. Pt education re: rehab process s/p amputation; practiced scooting along EOB for carryover to papklry-vy-telmjse transfers, pt education / cues for increased [...] Toilet/Commode Gait Stairs Curb Step Car Transfer -[facility]: 3: Sit at edge of bed Please see discipline specific clinical documentation flowsheet for complete details for this therapy evaluation/treatment. SIGNATURE: Sheridan Moncada PT PATIENT NAME: Elizabeth Modi DATE: September 01, 2019 TIME: 3:55 PM Normal [facility] Basic Panelon 08-31-2019 Creatinine [Mass/Vol] 0.76 mg/dL Normal 0.67-1.17 [facility] Comment on above: Result Comment: Use of this assay is not recommended for patients undergoing treatment with phenindione, due to the potential for falsely depressed results. Performed By: #### C _ANA #### [facility] [address] [place], [place] [address] Anion gap [Moles/Vol] 11 mmol/L Normal 8-16 [facility] Comment on above: Performed By: #### C _ANA #### [address] [address] Calcium [Mass/Vol] 8.2 mg/dL Low 8.5-10.1 [facility] Comment on above: Performed By: #### C _ANA #### [address] [address] CO2 [Moles/Vol] 23 mmol/L Normal 21-32 [facility] Comment on above: Performed By: #### C _ANA #### [address] [address] Glucose [Mass/Vol] 85 mg/dL Normal 70-99 [facility] Comment on above: Performed By: #### C _ANA #### [address] [address] Urea nitrogen [Mass/Vol] 21 mg/dL High 7-18 [facility] Comment on above: Performed By: #### C _ANA #### [facility] [address] [place], [place] [address] Chloride [Moles/Vol] 106 mmol/L Normal 98-107 [facility] Comment on above: Performed By: #### C _ANA #### [address] [address] Potassium [Moles/Vol] 3.9 mmol/L Normal 3.5-5.1 [facility] Comment on above: Performed By: #### C _ANA #### [facility] [address] [place], [place] [address] Sodium [Moles/Vol] 136 mmol/L Normal 136-145 [facility] Comment on above: Performed By: #### C _ANA #### [facility] [address] [place], [place] [address] CONSULT PROGon 08-31-2019 CONSULT PROG HNO ID: [id number] Author: Doris Eden Service: Endocrinology Author Type: Physician Type: Consult Progress Note Filed: 08/31/2019 8:08 AM Note Text: ENDOCRINOLOGY CONSULT PROGRESS NOTE SERVICE DATE: 08/31/2019 SERVICE TIME: 7:50 AM Subjective INTERVAL HPI: Pt followed for diabetes mellitus type 2 with complications. Tr from [place]; adm for right foot infection and gangrene; [...] (Src) 97.3 (Temporal) Resp 18 Ht 5' 10 (1.78m) Wt 197 lb 8.5 oz (89.6kg) [...] width (RBC) [Ratio] 14.5 % High 11.6-14.4 [facility] Comment on above: Performed By: #### M AG #### [place] [address] Hematocrit (Bld) [Volume fraction] 31.2 % Low 40.1-51.0 [facility] Comment on above: Performed By: #### M AG #### [facility] [address] [place], [place] [address] Hemoglobin (Bld) [Mass/Vol] 10.0 g/dL Low 13.7-17.5 [facility] Comment on above: Performed By: #### M AG #### [facility] [address] [place], [place] [address] MCH (RBC) [Entitic mass] 28.7 pg Normal 25.7-32.2 [facility] Comment on above: Performed By: #### M AG #### [facility] [address] [place] [address] MCHC (RBC) [Mass/Vol] 32.1 % Low 32.3-36.5 [facility] Comment on above: Performed By: #### M AG #### [facility] [address] [place] [address] MCV (RBC) [Entitic vol] 89.4 fL Normal 83.2-95.6 [facility] Comment on above: Performed By: #### M AG #### [facility] [address] [place] [address] Platelet mean volume (Bld) [Entitic vol] 9.4 fL Normal 8.7-12.0 [facility] Comment on above: Performed By: #### M AG #### [facility] [address] [place] [address] Platelets (Bld) [#/Vol] 385 thou/cmm High 141-365 [facility] Comment on above: Performed By: #### M AG #### [facility] [address] [place] [address] RBC (Bld) [#/Vol] 3.49 mil/cmm Low 4.63-6.08 [facility] Comment on above: Performed By: #### M AG #### [facility] [address] [place] [address] RDW SD 45.1 fl Normal 36.1-45.8 [facility] Comment on above: Performed By: #### M AG #### [facility] [address] [place] [address] WBC (Bld) [#/Vol] 8.81 thou/cmm Normal 4.23-9.07 [facility] Comment on above: Performed By: #### M AG #### [facility] [address] [place] [address] Magnesium Bloodon 08-31-2019 Magnesium [Mass/Vol] 1.1 mg/dL Low 1.6-2.6 [facility] Comment on above: Performed By: #### M AG #### [facility] [address] [place] [id number] PROGRESSon 08-31-2019 PROGRESS HNO ID: [id number] Author: Zack Jenkins Service: Hospital Medicine Author Type: Physician Type: Progress Notes Filed: 08/31/2019 4:57 PM Note Text: DEPARTMENT OF HOSPITAL MEDICINE PROGRESS NOTE SERVICE DATE: 08/31/2019 SERVICE TIME: 4:53 PM Hospital Medicine/Primary Attending: Zack Jenkins, DO NIGHT AND WEEKEND COVERAGE: After 7pm please page [phone] CHIEF COMPLAINT: no new complaints SUBJECTIVE: Pt seen and examined. No acute events overnight. Denies CP, SOB, NVD, headache, fever/chills or abdominal pain. OBJECTIVE: PHYSICAL EXAM: BP 145/60 Pulse 80 Temp (Src) 98.2 (Oral) Resp 20 Ht 5' 10 (1.78m) Wt 197 lb 8.5 oz (89.6kg) [...] amputation -Angio 08/26 showing partial occlusion R PLASTIC TILE SETTER -Vascular and Ortho consults -Plan is for?endarterectomy [...] units Sub Q BID?? ? Disposition:?Home with [facility]?pending progress and surgery? Plan of care discussed with: Provider, RN, Patient SIGNATURE: Zack Jenkins DO PATIENT NAME: Elizabeth Modi DATE: August 31, 2019 TIME: 4:53 PM PAGER/CONTACT #: Erasmo webber pager Disclaimer: Portions of this note may have been generated using [employer] voice recognition software. Reasonable efforts were made to correct any dictation errors that resulted due to the programming of this software but some may still be present. Normal [facility] PROGRESS HNO ID: [id number] Author: Francine Roberts Service: Vascular Surgery Author [...] questions or concerns Mon-Mon 6a-5p please page [phone]. After 5pm and on Weekends and Holidays, please page [phone] if in ICU or [phone] if on RNF. Subjective SUBJECTIVE: NAEON. Denies pain. Understanding of plan for OR Monday. ? Objective OBJECTIVE: Vitals: Temp (24hrs), Av.6 ?C (97.9 ?F), Min:36.3 ?C (97.3 ?F), Max:36.9 ?C (98.4 ?F) BP 148/55 Pulse 77 Temp 36.3 ?C (97.3 ?F) (Temporal) Resp 18 Ht 177.8 cm (5' 10) Wt 89.6 kg (197 lb 8.5 oz) SpO2 99% BMI 28.34 kg/m? 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 Performed By: #### M AG #### [facility] [address] [place] [address] Anion gap [Moles/Vol] 12 mmol/L Normal 8-16 [facility] Comment on above: Performed By: #### M AG #### [facility] [address] [place] [address] Calcium [Mass/Vol] 7.7 mg/dL Low 8.5-10.1 [facility] Comment on above: Performed By: #### M AG #### [facility] [address] [place] [address] CO2 [Moles/Vol] 24 mmol/L Normal 21-32 [facility] Comment on above: Performed By: #### M AG #### [facility] [address] [place], [place] [address] Glucose [Mass/Vol] 70 mg/dL Normal 70-99 [facility] Comment on above: Performed By: #### M AG #### [facility] [address] [place], [place] [address] Urea nitrogen [Mass/Vol] 16 mg/dL Normal 7-18 [facility] Comment on above: Performed By: #### M AG #### [facility] [address] [place], [place] [address] Chloride [Moles/Vol] 106 mmol/L Normal 98-107 [facility] Comment on above: Performed By: #### M AG #### [facility] [address] [place], [place] [address] Potassium [Moles/Vol] 4.0 mmol/L Normal 3.5-5.1 [facility] Comment on above: Performed By: #### M AG #### [facility] [address] [place], [place] [address] Sodium [Moles/Vol] 138 mmol/L Normal 136-145 [facility] Comment on above: Performed By: #### M AG #### [facility] [address] [place], [place] [address] CONSULT PROGon 08-30-2019 CONSULT PROG HNO ID: [id number] Author: Doris Eden Service: Endocrinology Author Type: Physician Type: Consult Progress Note Filed: 08/30/2019 8:57 AM Note Text: ENDOCRINOLOGY CONSULT PROGRESS NOTE SERVICE DATE: 08/30/2019 SERVICE TIME: 8:45 AM Subjective INTERVAL HPI: Pt followed for diabetes mellitus type 2 with complications. Tr from [place]; adm for right foot infection and gangrene; [...] (Src) 98.6 (Oral) Resp 18 Ht 5' 10 (1.78m) Wt 200 lb 6.4 oz (90.9kg) [...] width (RBC) [Ratio] 14.1 % Normal 11.6-14.4 [facility] Comment on above: Performed By: #### C BC1 #### [facility] [address] [place], [place] [address] Hematocrit (Bld) [Volume fraction] 28.8 % Low 40.1-51.0 [facility] Comment on above: Performed By: #### C BC1 #### [facility] [address] [place], [place] [address] Hemoglobin (Bld) [Mass/Vol] 9.0 g/dL Low 13.7-17.5 [facility] Comment on above: Performed By: #### C BC1 #### [facility] [address] [place] [address] MCH (RBC) [Entitic mass] 28.3 pg Normal 25.7-32.2 [facility] Comment on above: Performed By: #### C BC1 #### [facility] [address] [place] [address] MCHC (RBC) [Mass/Vol] 31.3 % Low 32.3-36.5 [facility] Comment on above: Performed By: #### C BC1 #### [facility] [address] [place] [address] MCV (RBC) [Entitic vol] 90.6 fL Normal 83.2-95.6 [facility] Comment on above: Performed By: #### C BC1 #### [facility] [address] [place] [address] Platelet mean volume (Bld) [Entitic vol] 9.7 fL Normal 8.7-12.0 [facility] Comment on above: Performed By: #### C BC1 #### [facility] [address] [place], [place] [address] Platelets (Bld) [#/Vol] 388 thou/cmm High 141-365 [facility] Comment on above: Performed By: #### C BC1 #### [facility] [address] [place], [place] [address] RBC (Bld) [#/Vol] 3.18 mil/cmm Low 4.63-6.08 [facility] Comment on above: Performed By: #### C BC1 #### [facility] [address] [place], [place] [address] RDW SD 44.2 fl Normal 36.1-45.8 [facility] Comment on above: Performed By: #### C BC1 #### [facility] [address] [place], [place] [address] WBC (Bld) [#/Vol] 9.52 thou/cmm High 4.23-9.07 [facility] Comment on above: Performed By: #### C BC1 #### [facility] [address] [place] [id number] NUTRITIONon 08-30-2019 NUTRITION HNO ID: [id number] Author: Snow Serna Service: Nutrition Therapy Author Type: Registered Dietitian Type: Nutrition Filed: 08/30/2019 1:41 PM Note Text: NUTRITION THERAPY PROGRESS NOTE SERVICE DATE: 08/30/2019 SERVICE TIME: 11:33 AM Nutrition Assessment: Recommended Malnutrition Diagnosis: Moderate Protein-Calorie Malnutrition (08/22/19 1436 : Keturah (Food Counter Worker) Valery) Estimated kilocalorie needs: 8194-7065 Calorie Calculation Method: 30-35 kcals/kg Estimated protein [...] taking boost. Anthropometrics: Height: 177.8 cm (5' 10) Weight: 90.9 kg (200 lb 6.4 oz) [...] August 30, 2019 TIME: 11:33 AM PAGER: [phone] Normal [facility] PROGRESSon 08-30-2019 PROGRESS HNO ID: [id number] Author: Zack Jenkins Service: Hospital Medicine Author Type: Physician Type: Progress Notes Filed: 08/30/2019 5:31 PM Note Text: DEPARTMENT OF HOSPITAL MEDICINE PROGRESS NOTE SERVICE DATE: 08/30/2019 SERVICE TIME: 5:24 PM Hospital Medicine/Primary Attending: Zack Jenkins, DO NIGHT AND WEEKEND COVERAGE: After 7pm please page [phone] CHIEF COMPLAINT: R lower leg pain SUBJECTIVE: Pt seen and examined. States his R lower leg hurts more today. Denies CP, SOB, NVD, headache, fever/chills or abdominal pain. 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 ? Disposition:?Home with [facility]?pending progress and surgery? Plan of care discussed with: Provider, RN, Patient SIGNATURE: Zack Jenkins DO PATIENT NAME: Elizabeth Modi DATE: August 30, 2019 TIME: 5:24 PM PAGER/CONTACT #: Team color pager Disclaimer: Portions of this note may have been generated using BlackBambooz[employer] voice recognition software. Reasonable efforts were made to correct any dictation errors that resulted due to the programming of this software but some may still be present. Normal [facility] PROGRESS HNO ID: [id number] Author: Francine Roberts Service: General Surgery Author [...] questions or concerns Mon-Fri 6a-5p please page [phone]. After 5pm and on Weekends and Holidays, please page [phone] if in ICU or [phone] if on RNF. Subjective SUBJECTIVE: Mr. Modi [...] (Oral) Resp 18 Ht 177.8 cm (5' 10) Wt 90.9 kg (200 lb 6.4 oz) SpO2 95% BMI 28.75 kg/m? 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 After 5pm and on Weekends and Holidays, please page [phone] if in ICU or [phone] if on RNF. Normal [facility] THERAPY NTon 08-30-2019 THERAPY NT HNO ID: [id number] Author: Tanja Drummond Service: Physical Therapy Author Type: Physical Therapist Type: Therapy (PT/OT/Speech/Resp) Filed: 08/30/2019 5:00 PM Note Text: Physical Therapy Treatment SERVICE DATE: 08/30/2019 SERVICE TIME: 1415 to 1500 ROOM: [id number] Recommended Discharge Disposition: Acute Rehab Recommended Discharge [...] l;Muscle Weakness (generalized) Interventions Provided: Therapeutic Exercise (46575);Therapeutic Activity (93033) Therapeutic Exercise (27507) Treatment Minutes: 25 2 units Skilled Intervention(s): Patient completed general strengthening exercises in supine, sitting (ankle pump, quad set, gluteal set, heel slide, hip abd/add, straight leg raise, long arc quad, short arc quad, hip adductor squeeze, assisted bridging) x 15-20 reps bilateral lower extremity, with min assist, with min verbal/tactile cues for optimal muscle recruitment, muscle activation, and muscle strengthening. Therapeutic Activity (25611) Treatment Minutes: 15 1 unit Skilled Intervention(s): [...] History: thyroid, HTN, DM, claudication Patient Report: They moved my surgery. agreeable to physical therapy. Complains of 5/10 [...] 08-29-2019 Creatinine [Mass/Vol] 0.80 mg/dL Normal 0.67-1.17 [facility] Comment on above: Result Comment: Use of this assay is not recommended for patients undergoing treatment with phenindione, due to the potential for falsely depressed results. Performed By: #### C _ANA #### [address] [address] Anion gap [Moles/Vol] 9 mmol/L Normal 8-16 [facility] Comment on above: Performed By: #### C _ANA #### [address] [address] CO2 [Moles/Vol] 27 mmol/L Normal 21-32 [facility] Comment on above: Performed By: #### C _ANA #### [address] [address] Glucose [Mass/Vol] 83 mg/dL Normal 70-99 [facility] Comment on above: Performed By: #### C _ANA #### [facility] [address] [place], [place] [address] Urea nitrogen [Mass/Vol] 14 mg/dL Normal 7-18 [facility] Comment on above: Performed By: #### C _ANA #### [address] [address] Calcium [Mass/Vol] 7.9 mg/dL Low 8.5-10.1 [facility] Comment on above: Performed By: #### C _ANA #### [facility] [address] [place], [place] [address] Chloride [Moles/Vol] 106 mmol/L Normal 98-107 [facility] Comment on above: Performed By: #### C _ANA #### [facility] [address] [place], [place] [address] Potassium [Moles/Vol] 4.0 mmol/L Normal 3.5-5.1 [facility] Comment on above: Performed By: #### C _ANA #### [facility] [address] [place], [place] [address] Sodium [Moles/Vol] 138 mmol/L Normal 136-145 [facility] Comment on above: Performed By: #### C _ANA #### [facility] [address] [place] [address] CASE MANAGEMon 08-29-2019 CASE MANAGEM HNO ID: [id number] Author: Tami SantiagoRn) KAVIN Patricio Service: Care Management Author Type: Registered Nurse Type: Care Mgt Progress Note Filed: 08/29/2019 11:27 AM Note Text: CARE MANAGEMENT PROGRESS NOTE SERVICE DATE: 08/29/2019 SERVICE TIME: 11:27 AM LOS: 8 days Chart reviewed. 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 Referral to [facility]- pt will need precert. Will follow clinical progress. SIGNATURE: Tami Patricio RN PATIENT NAME: Elizabeth Modi DATE: August 29, 2019 TIME: 11:27 AM PAGER/CONTACT #: [phone] [facility] CONSULT PROGon 08-29-2019 CONSULT PROG HNO ID: [id number] Author: Luke Briones (Gurwinder) Sailaja Service: Wound/Ostomy Author Type: Nurse Practitioner Type: Consult Progress Note Filed: 08/29/2019 3:36 PM Note Text: WOUND CARE CONSULT CLINICAL SPECIALIST NOTE SERVICE DATE: 08/29/2019 SERVICE TIME: 14:45 TIME SPENT (minutes): 30 REASON FOR CONSULT: Reevaluation of right leg wounds and overall skin check. CHIEF COMPLAINT: Recent surgery to right leg with more coming on Monday Subjective HISTORY OF PRESENT ILLNESS: Mr. Modi is a 79 year old male who is seen today with Leila Goel, Wound/irrigation district manager, and presented to hospital with complaints [...] (Oral) Resp 18 Ht 177.8 cm (5' 10) Wt 89.8 kg (197 lb 15.6 oz) [...] on Monday09/02/19 for right femoral endartectomy. Obtained truvue heel boot for patient's left heel and seat cushion. Will order patient [id number] mattress and turn and reposition every 2 hours or more often. A photo was taken of the patient's wound(s). Photos can be found under the Get Images tab on Quantitative Medicine. Photos are uploaded by the wound senior care manager and may not be immediately available for viewing. Contact the wound and ostomy care department with questions. SIGNATURE: Luke Menard APRN.GURWINDER,CWHARESHN PATIENT NAME: Elizabeth Modi DATE: August 29, 2019 TIME: 3:23 PM CONTACT#: [id number] [facility] CONSULT PROG HNO ID: [id number] Author: Doris Eden Service: Endocrinology Author Type: Physician Type: Consult Progress Note Filed: 08/29/2019 8:38 AM Note Text: ENDOCRINOLOGY CONSULT PROGRESS NOTE SERVICE DATE: 08/29/2019 SERVICE TIME: 8:25 AM Subjective INTERVAL HPI: Pt followed for diabetes mellitus type 2 with complications. Tr from [facility]; adm for right foot infection and gangrene; [...] (Src) 97.9 (Oral) Resp 18 Ht 5' 10 (1.78m) Wt 197 lb 15.6 oz (89.8kg) [...] width (RBC) [Ratio] 14.1 % Normal 11.6-14.4 [facility] Comment on above: Performed By: #### F ERR #### [address] [address] Hematocrit (Bld) [Volume fraction] 27.5 % Low 40.1-51.0 [facility] Comment on above: Performed By: #### F ERR #### [address] [address] Hemoglobin (Bld) [Mass/Vol] 8.8 g/dL Low 13.7-17.5 [facility] Comment on above: Performed By: #### F ERR #### [address] [place], [place] [address] MCH (RBC) [Entitic mass] 29.0 pg Normal 25.7-32.2 [facility] Comment on above: Performed By: #### F ERR #### [facility] [address] [place], [place] [address] MCHC (RBC) [Mass/Vol] 32.0 % Low 32.3-36.5 [facility] Comment on above: Performed By: #### F ERR #### [facility] [address] [place], [place] [address] MCV (RBC) [Entitic vol] 90.8 fL Normal 83.2-95.6 [facility] Comment on above: Performed By: #### F ERR #### [facility] [address] [place], [place] [address] Nucleated RBC (Bld) [#/Vol] 0.02 thou/cmm High 0.00-0.01 [facility] Comment on above: Performed By: #### F ERR #### [facility] [address] [place], [place] [address] Nucleated RBC/100 WBC (Bld) [Ratio] 0.2 % Normal 0.0-0.2 [facility] Comment on above: Performed By: #### F ERR #### [facility] [address] [place], [place] [address] Platelet mean volume (Bld) [Entitic vol] 9.5 fL Normal 8.7-12.0 [facility] Comment on above: Performed By: #### F ERR #### [facility] [address] [place], [place] [address] Platelets (Bld) [#/Vol] 430 thou/cmm High 141-365 [facility] Comment on above: Performed By: #### F ERR #### [facility] [address] [place], [place] [address] RBC (Bld) [#/Vol] 3.03 mil/cmm Low 4.63-6.08 [facility] Comment on above: Performed By: #### F ERR #### [address] [address] RDW SD 45.0 fl Normal 36.1-45.8 [facility] Comment on above: Performed By: #### F ERR #### [facility] [address] [place], [place] [address] WBC (Bld) [#/Vol] 10.45 thou/cmm High 4.23-9.07 [facility] Comment on above: Performed By: #### F ERR #### [facility] [address] [place], [place] [address] Magnesium Bloodon 08-29-2019 Magnesium [Mass/Vol] 1.6 mg/dL Normal 1.6-2.6 [facility] Comment on above: Performed By: #### M AG #### [facility] [address] [place], [place] [address] PROGRESSon 08-29-2019 PROGRESS HNO ID: [id number] Author: Zack Jenkins Service: Hospital Medicine Author Type: Physician Type: Progress Notes Filed: 08/29/2019 5:59 PM Note Text: DEPARTMENT OF HOSPITAL MEDICINE PROGRESS NOTE SERVICE DATE: 08/29/2019 SERVICE TIME: 5:56 PM Hospital Medicine/Primary Attending: Zack Jenkins, DO NIGHT AND WEEKEND COVERAGE: After 7pm please page [phone] CHIEF COMPLAINT: no new complaints SUBJECTIVE: Pt seen and examined. No acute events overnight. Denies any leg pain. Denies CP, SOB, NVD, headache, fever/chills or abdominal pain. 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 Disposition: Home with [facility] pending progress and surgery Plan of care discussed with: Provider, RN, Patient SIGNATURE: Zack Jenkins DO PATIENT NAME: Elizabeth Modi DATE: August 29, 2019 TIME: 5:56 PM PAGER/CONTACT #: Erasmo webber pager Disclaimer: Portions of this note may have been generated using BlackBamboozStudio voice recognition software. Reasonable efforts were made to correct any dictation errors that resulted due to the programming of this software but some may still be present. Normal [facility] PROGRESS HNO ID: [id number] Author: Tom Prescott DO Service: General Surgery [...] questions or concerns Mon-Mon 6a-5p please page [phone]. After 5pm and on Weekends and Holidays, [...] (Oral) Resp 18 Ht 177.8 cm (5' 10) Wt 89.8 kg (197 lb 15.6 oz) SpO2 97% BMI 28.41 kg/m? O2 Therapy: Room Air IANDO: Date 08/28/19 0700 - 08/29/19 0659 08/29/19 07 - 08/30/19 0659 Shift 9228-2848 8161-3756 1501-8080 24 Hour Total 0429-0685 9714-4658 7075-9737 24 Hour Total INTAKE Shift Total OUTPUT [...] out of bed to chair - [facility] - Further care per primary Assessment [...] THERAPY NTon 08-29-2019 THERAPY NT HNO ID: [id number] Author: Tanja (Reese Drummond Service: Physical Therapy Author Type: Physical Therapist Type: Therapy (PT/OT/Speech/Resp) Filed: 08/29/2019 3:21 PM Note Text: Physical Therapy Treatment SERVICE DATE: 08/29/2019 SERVICE TIME: 1138 to 1208 ROOM: [place] [address] Recommended Discharge Disposition: Acute Rehab Recommended Discharge [...] l;Muscle Weakness (generalized) Interventions Provided: Therapeutic Exercise (14969);Therapeutic Activity (39268) Therapeutic Exercise (27662) Treatment Minutes: 15 1 unit Skilled Intervention(s): [...] extremity general strengthening therapeutic exercise. Therapeutic Activity (84429) Treatment Minutes: 10 1 unit Skilled Intervention(s): [...] History: thyroid, HTN, DM, claudication Patient Report: I don't know why I'm so tired. agreeable to physical therapy. Denies pain. No [...] 08-28-2019 Creatinine [Mass/Vol] 0.91 mg/dL Normal 0.67-1.17 [facility] Comment on above: Result Comment: Use of this assay is not recommended for patients undergoing treatment with phenindione, due to the potential for falsely depressed results. Performed By: #### C _ANA #### [address] [address] Anion gap [Moles/Vol] 10 mmol/L Normal 8-16 [facility] Comment on above: Performed By: #### C _ANA #### [address] [address] CO2 [Moles/Vol] 27 mmol/L Normal 21-32 [facility] Comment on above: Performed By: #### C _ANA #### [facility] [address] [place], [place] [address] Urea nitrogen [Mass/Vol] 14 mg/dL Normal 7-18 [facility] Comment on above: Performed By: #### C _ANA #### [facility] [address] [place], [place] [address] Calcium [Mass/Vol] 7.5 mg/dL Low 8.5-10.1 [facility] Comment on above: Performed By: #### C _ANA #### [facility] [address] [place], [place] [address] Glucose [Mass/Vol] 108 mg/dL High 70-99 [facility] Comment on above: Performed By: #### C _ANA #### [address] [address] Chloride [Moles/Vol] 105 mmol/L Normal 98-107 [facility] Comment on above: Performed By: #### C _ANA #### [facility] [address] [place], [place] [address] Potassium [Moles/Vol] 4.1 mmol/L Normal 3.5-5.1 [facility] Comment on above: Performed By: #### C _ANA #### [facility] [address] [place], [place] [address] Sodium [Moles/Vol] 138 mmol/L Normal 136-145 [facility] Comment on above: Performed By: #### C _ANA #### [facility] [address] [place], [place] [address] CASE MANAGEMon 08-28-2019 CASE MANAGEM HNO ID: [id number] Author: Tami SantiagoRn) KAVIN Patricio Service: Care Management Author Type: Registered Nurse Type: Care Mgt Progress Note Filed: 08/28/2019 1:57 PM Note Text: CARE MANAGEMENT PROGRESS NOTE SERVICE DATE: 08/28/2019 SERVICE TIME: 1:56 PM LOS: 7 days Chart reviewed. 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 Referral to [facility]- pt will need precert. Will follow clinical progress. SIGNATURE: Tami Patricio RN PATIENT NAME: Elizabeth Modi DATE: August 28, 2019 TIME: 1:56 PM PAGER/CONTACT #: [phone] Normal [facility] CONSULT PROGon 08-28-2019 CONSULT PROG HNO ID: [id number] Author: Doris Eden Service: Endocrinology Author Type: Physician Type: Consult Progress Note Filed: 08/28/2019 8:31 AM Note Text: ENDOCRINOLOGY CONSULT PROGRESS NOTE SERVICE DATE: 08/28/2019 SERVICE TIME: 8:15 AM Subjective INTERVAL HPI: Pt followed for diabetes mellitus type 2 with complications. Tr from [facility]; adm for right foot infection and gangrene; [...] (Src) 97.9 (Oral) Resp 16 Ht 5' 10 (1.78m) Wt 196 lb 13.9 oz (89.3kg) [...] 2019 TIME: 8:31 AM PAGER: [phone] Normal [facility] Hemogram/Diffon 08-28-2019 Abs Immature Grans 0.21 thou/cmm High 0.00-0.05 [facility] Comment on above: Performed By: #### G LMET #### [facility] [address] [place] [address] Abs Neut (ANC) 7.25 thou/cmm High 1.78-5.38 [facility] Comment on above: Performed By: #### G LMET #### [facility] [address] [place], [place] [address] Abs. Baso 0.02 thou/cmm Normal 0.01-0.08 [facility] Comment on above: Performed By: #### G LMET #### [facility] [address] [place] [address] Abs. Meriw[place] 0.96 thou/cmm High 0.30-0.82 [facility] Comment on above: Performed By: #### G LMET #### [facility] [address] [place] [address] Basophils/100 WBC (Bld) 0.2 % Normal [facility] Comment on above: Performed By: #### G LMET #### [facility] [address] [place] [address] Eosinophils (Bld) [#/Vol] 0.16 thou/cmm Normal 0.04-0. 54 [facility] Comment on above: Performed By: #### G LMET #### [facility] [address] [place] [address] Eosinophils/100 WBC (Bld) 1.5 % Normal [facility] Comment on above: Performed By: #### G LMET #### [facility] [address] [place] [address] Erythrocyte distribution width (RBC) [Ratio] 13.4 % Normal 11.6-14.4 [facility] Comment on above: Performed By: #### G LMET #### [facility] [address] [place] [address] Hematocrit (Bld) [Volume fraction] 29.8 % Low 40.1-51.0 [facility] Comment on above: Performed By: #### G LMET #### [facility] [address] [place] [address] Hemoglobin (Bld) [Mass/Vol] 9.5 g/dL Low 13.7-17.5 [facility] Comment on above: Performed By: #### G LMET #### [facility] [address] [place], [place] [address] Immature Grans 2.00 % Normal [facility] Comment on above: Performed By: #### G LMET #### [facility] [address] [place], [place] [address] Lymphocytes (Bld) [#/Vol] 1.82 thou/cmm Normal 0.84-2. 85 [facility] Comment on above: Performed By: #### G LMET #### [facility] [address] [place], [place] [address] Lymphocytes/100 WBC (Bld) 17.5 % Normal [facility] Comment on above: Performed By: #### G LMET #### [facility] [address] [place] [address] MCH (RBC) [Entitic mass] 28.4 pg Normal 25.7-32.2 [facility] Comment on above: Performed By: #### G LMET #### [place] [address] MCHC (RBC) [Mass/Vol] 31.9 % Low 32.3-36.5 [facility] Comment on above: Performed By: #### G LMET #### [place] [address] MCV (RBC) [Entitic vol] 89.2 fL Normal 83.2-95.6 [facility] Comment on above: Performed By: #### G LMET #### [place] [address] Monocytes/100 WBC (Bld) 9.2 % Normal [facility] Comment on above: Performed By: #### G LMET #### [facility] [address] [place], [place] [address] Platelet mean volume (Bld) [Entitic vol] 9.6 fL Normal 8.7-12.0 [facility] Comment on above: Performed By: #### G LMET #### [address] [address] Platelets (Bld) [#/Vol] 390 thou/cmm High 141-365 [facility] Comment on above: Performed By: #### G LMET #### [facility] [address] [place], [place] [address] RBC (Bld) [#/Vol] 3.34 mil/cmm Low 4.63-6.08 [facility] Comment on above: Performed By: #### G LMET #### [facility] [address] [place], [place] [address] RDW SD 43.3 fl Normal 36.1-45.8 [facility] Comment on above: Performed By: #### G LMET #### [facility] [address] [place] [address] Seg Neutrophil 69.6 % Normal [facility] Comment on above: Performed By: #### G LMET #### [facility] [address] [place], [place] [address] WBC (Bld) [#/Vol] 10.42 thou/cmm High 4.23-9.07 [facility] Comment on above: Performed By: #### G LMET #### [facility] [address] [place] [address] Magnesium Bloodon 08-28-2019 Magnesium [Mass/Vol] 1.1 mg/dL Low 1.6-2.6 [facility] Comment on above: Performed By: #### F ERR #### [facility] [address] [place] [address] NM CARDIAC PERF STRESS/PHARM on 08-28-2019 NM CARDIAC PERF STRESS/PHARM * * *Final Report* * * DATE OF EXAM: Aug 28 2019 9:30AM [facility] 0006 - [place] CARDIAC PERF STRESS/PHARM [...] Ordering physician: GOLD Estes Specialist: Tawana Larson Lead Laying And Gluing Machine Operator: Libertad Rose Stress ECG interpreting physician: Shira [...] for age. The double product achieved was [address]. Peak heart rate was 98 bpm and [...] index (CRI): 0.51 Rate Pressure Product (RPP): 38080 Reason for test termination: End of Protocol. [...] chest sx during test Final ------ Stress Aba Therapist Report: [facility] Date of service: 08/28/2019 9:30:00 AM Supervising physician: Shira Zuleta MD PATIENT: Name: ELIZABETH MODI Age: 79 years Gender: M The supervising physician was present during the stress procedure. Final Resolution Expert: RICHARD Transcribe Date/Time: Aug 28 2019 9:30A Dictated by : IGNACIA MENDEZ MD This examination was interpreted and the report reviewed and electronically signed by: IGNACIA MENDEZ MD on Aug 28 2019 3:54PM EST Normal [facility] NURSING PROGon 08-28-2019 NURSING PROG HNO ID: [id number] Author: Tawana SantiagoRn) KAVIN Larson Service: Cardiovascular Testing Author Type: Registered Nurse Type: Nursing Progress Note Filed: 08/28/2019 2:58 PM Note Text: Dr Zuleta notified of labs prior to testing.Lexiscan Nuclear Stress Test procedure explained. Patient verbalized understanding and test completed with post nuclear scan to follow. [facility] OPERATIVE NOon 08-28-2019 OPERATIVE NO HNO ID: [id number] Author: Jovanny Parmar Service: Vascular Surgery Author Type: Physician Type: Operative Report Filed: 08/29/2019 3:01 PM Note Text: [facility] - Operative Report ELIZABETH MODI : 1940 AGE: 79. SEX: M PATIENT TYPE: I HOSP SVC: INTM LOCATION: [facility] [facility] ATTENDING PHYSICIAN: Jovanny Parmar MD CSN NUMBER: [id number] DATE OF SURGERY/PROCEDURE: 08/27/2019 INCISION/PROCEDURE START TIME: 10:01 AM INCISION CLOSE/PROCEDURE END TIME: 10:55 AM PREOPERATIVE DIAGNOSIS: Gangrene. POSTOPERATIVE DIAGNOSIS: Gangrene. SURGEON: Jovanny Parmar MD INDUSTRIAL ROOFER: Tom Prescott. SURGERY/PROCEDURE: Angiogram with bilateral lower [...] serially upsized using Seldinger technique through a 5-Hong Konger sheath and Omni Flush catheter. Aortogram was [...] Recovery in stable condition. Jovanny Parmar MD LM:[id number] /[id number] Normal [facility] PROGRESSon 08-28-2019 PROGRESS HNO ID: [id number] Author: Zack Jenkins Service: Hospital Medicine Author Type: Physician Type: Progress Notes Filed: 08/28/2019 6:10 PM Note Text: DEPARTMENT OF HOSPITAL MEDICINE PROGRESS NOTE SERVICE DATE: 08/28/2019 SERVICE TIME: 6:05 PM Hospital Medicine/Primary Attending: Zack Jenkins, DO NIGHT AND WEEKEND COVERAGE: After 7pm please page [phone] CHIEF COMPLAINT: No new complaints SUBJECTIVE: Pt seen and examined. Denies pain in his R leg. Denies CP, SOB, NVD, headache, fever/chills or abdominal pain. 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 Reasonable efforts were made to correct any dictation errors that resulted due to the programming of this software but some may still be present. Normal [facility] PROGRESS HNO ID: [id number] Author: Lula Posada (Rt) Service: Radiology Author Type: Kaiako Kura [place] Type: Progress Notes Filed: 08/28/2019 3:12 PM [...] No IV SITE: Inpatient - refer to [facility] documentation POST EXAM PIV STATUS: Left in for next appointment PROCEDURE TYPE: NM Stress: 12.2mCi [id number] was administered IV for Rest Imaging at 1250 by ms. 35.9 mCi [id number] was administered IV for Stress Imaging at 240 by ty. ADMINISTRATION TIME: 1250 PATIENT DISCHARGED TO: Patient taken to IP transport area for return to [facility]/ICU/ED. A Diagnostic radioactive procedure has taken place, with no further precautions necessary other than routine body substance precautions. More information regarding radiation safety can be found using this link: [email or web address] SIGNATURE: RT Albino PATIENT NAME: Elizabeth Modi DATE: August 28, 2019 TIME: 3:11 PM PAGER/CONTACT #: Mela [facility] PROGRESS HNO ID: [id number] Author: Francine Roebrts Service: Vascular Surgery Author Type: Resident Type: [...] (Oral) Resp 16 Ht 177.8 cm (5' 10) Wt 89.3 kg (196 lb 13.9 oz) SpO2 96% BMI 28.25 kg/m? O2 Therapy: Room Air IANDO: Date 08/27/19699 - 08/28/19 0659 08/28/19699 - 08/29/19 0659 Shift 8070-7994 2623-1835 9826-4008 24 Hour Total 4656-8898 6258-8240 9996-4950 24 Hour Total INTAKE PO 30 30 [...] out of bed to chair - [facility] - Plan for OR Monday for [...] 0 Phosphate [Mass/Vol] 3.3 mg/dL Normal 2.5-4.9 [facility] Comment on above: Performed By: #### P 8 #### [facility] [address] [place], [place] [address] THERAPY NTon 08-28-2019 THERAPY NT HNO ID: [id number] Author: Tanja (Pt) Hoda Service: Physical Therapy Author Type: Physical Therapist Type: Therapy (PT/OT/Speech/Resp) Filed: 08/28/2019 3:32 PM Note Text: PHYSICAL THERAPY MISSED VISIT SERVICE DATE: 08/28/2019 SERVICE TIME: 1529 to 1529 ROOM: [place] [address] Attempted Treatment. Patient not seen due to Test/Procedure(out of room for stress test). Will reattempt as able. SIGNATURE: Tanja Drumomnd PT PATIENT NAME: Elizabeth Modi DATE: August 28, 2019 TIME: 3:30 PM Normal [facility] THERAPY NT HNO ID: [id number] Author: An SantiagoOtr/Vickie Miller Service: Occupational Therapy Author Type: Occupational Therapist Type: Therapy (PT/OT/Speech/Resp) Filed: 08/28/2019 11:27 AM Note Text: Occupational Therapy Treatment SERVICE DATE: 08/28/2019 SERVICE TIME: 1026 to 1105 ROOM: [place] [address] Recommended Discharge Disposition: Acute Rehab Recommended Discharge [...] (ADL);General symptoms and signs-other Interventions Provided: Self Assisted Management (38267) Self Assisted Management (70630) Treatment Minutes: 39 3 units Skilled Intervention(s):Full [...] for surgery. 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 Agreeable to activities of daily living training at edge of bed today. No report of pain. I 'm hoping to get to rehab soon. It feels so good to be out of bed. I want to get back home. I miss my dog. Home Environment Patient Lives With: Self/Alone Assistance [...] DATE: August 28, 2019 TIME: 11:17 AM [facility] ANES [place] 08-27-2019 ANES POST HNO ID: [id number] Author: Oanh Pugh Service: Anesthesiology Author Type: [...] 27, 2019 TIME: 5:16 PM PAGER/CONTACT #: Normal [facility] ANES PREOPon 08-27-2019 ANES PREOP HNO ID: [id number] Author: Jesse Jimenez Service: Anesthesiology Author Type: Physician Type: Anesthesia PreOp Filed: 08/27/2019 11:01 AM Note Text: ANESTHESIOLOGY DAY OF SURGERY NOTE SERVICE DATE: 08/27/2019 SERVICE TIME: 11:00 AM : 1940 Procedure(s) (LRB): ANGIOGRAM EXTREMITY LOWER (Right) Surgeon(s): Jovanny Santos (Res) DO Kenyon Estimated body mass index is 28.25 kg/m? as calculated from the following: Height as of this encounter: 177.8 cm (5' 10). Weight as of this encounter: 89.3 kg [...] g 15 g ORAL PRN Jennifer (Res) Dots Or - [MAR Hold due to Transfer] glucagon 1 mg injection (GLUCAGEN) 1 mg INTRAMUSCULAR PRN Jennifer (Res) Dots Or - [MAR Hold due to Transfer] dextrose 50% in water 25 mL syringe 12.5 g INTRAVENOUS PRN Jennifer (Res) Valeriy Allergies: ALLERGIES No Known Allergies DOS EXAM: [...] August 27, 2019 TIME: 11:00 AM CSN: [id number] [facility] BRIEF OP NOTon 08-27-2019 BRIEF OP NOT HNO ID: [id number] Author: Tom Prescott DO Service: General Surgery [...] BRIEF OPERATIVE / PROCEDURE NOTE LOG ID: [id number] SURGERY/PROCEDURE DATE: 08/27/2019 INCISION/PROCEDURE START TIME: 10:01 AM INCISION CLOSE/PROCEDURE END TIME: 10:55 AM SURGEON(S)/PROCEDURALI ST(S) AND INDUSTRIAL ROOFER(S): Surgeon(s) and Role: * Jovanny Parmar - Primary * Tom Prescott DO - Resident - Assisting Automation Controls Engineer: Lori Schmid SA SURGERY/PROCEDURE(S): Diagnostic bilatera lower [...] [facility] CONSULTon 08-27-2019 CONSULT HNO ID: [id number] Author: Gold Sullivan Service: Cardiovascular Medicine Author [...] (Src) 98.2 (Oral) Resp 18 Ht 5' 10 (1.78m) Wt 196 lb 13.9 oz (89.3kg) [...] 27, 2019 TIME: 3:27 PM PAGER/CONTACT #: [phone] [facility] CONSULT PROGon 08-27-2019 CONSULT PROG HNO ID: [id number] Author: Doris Eden Service: Endocrinology Author Type: Physician Type: Consult Progress Note Filed: 08/27/2019 8:02 AM Note Text: ENDOCRINOLOGY CONSULT PROGRESS NOTE SERVICE DATE: 08/27/2019 SERVICE TIME: 7:50 AM Subjective INTERVAL HPI: Pt followed for diabetes mellitus type 2 with complications. 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 HTN (hypertension) POA: Yes Assessment AND Plan: on Rx Dyslipidemia POA: Yes Assessment AND Plan: on Rx Hypothyroidism POA: Yes Assessment AND Plan: on LT4 Malnutrition of moderate degree (HCC) POA: Yes Assessment AND Plan: on Boost supplements SIGNATURE: Doris Eden MD PATIENT NAME: Elizabeth Modi DATE: August 27, 2019 TIME: 8:02 AM PAGER: [phone] Normal [facility] IR ABDOMEN ANGIO W/ RUNOFFon 08-27-2019 IR ABDOMEN ANGIO W/ RUNOFF * * *Final Report* * * DATE OF EXAM: Aug 27 2019 11:22AM [facility] 0993 - IR ABDOMEN ANGIO W/ [...] Left reconstitution at the above-knee popliteal artery. Resolution Expert: ONEL Transcribe Date/Time: Aug 29 2019 1:09P Dictated by : JOVANNY PARMAR MD This examination was interpreted and the report reviewed and electronically signed by: JOVANNY PARMAR MD on Aug 29 2019 1:12PM EST Normal [facility] NUTRITIONon 08-27-2019 NUTRITION HNO ID: [id number] Author: Carine Singh Service: Nutrition Therapy Author Type: Registered Dietitian Type: Nutrition Filed: 08/27/2019 3:14 PM Note Text: NUTRITION THERAPY PROGRESS NOTE SERVICE DATE: 08/27/2019 SERVICE TIME: 2:20 PM Nutrition Assessment: Recommended Malnutrition Diagnosis: Moderate Protein-Calorie Malnutrition (08/22/19 1436 : Keturah (Food Counter Worker) Valery) Estimated kilocalorie needs: 3243-3834 Calorie Calculation Method: 30-35 kcals/kg Estimated protein [...] vs AKA Anthropometrics: Height: 177.8 cm (5' 10) Weight: 89.3 kg (196 lb 13.9 oz) [...] August 27, 2019 TIME: 2:20 PM PAGER: [phone] Normal [facility] PROGRESSon 08-27-2019 PROGRESS HNO ID: [id number] Author: Tom Prescott DO Service: General Surgery [...] please page [phone] if in ICU or [phone] if on RNF. Subjective SUBJECTIVE: Patient seen [...] (Oral) Resp 18 Ht 177.8 cm (5' 10) Wt 89.3 kg (196 lb 13.9 oz) SpO2 96% BMI 28.25 kg/m? O2 Therapy: Room Air IANDO: Date 08/26/19 07 - 08/27/19 0608/27/19699 - 08/28/19 0659 Shift 8466-5988 3375-6558 7897-2329 24 Hour Total 3046-5611 3445-5459 2456-0654 24 Hour Total INTAKE PO 30 30 [...] questions or concerns Mon-Mon 6a-5p please page [phone]. After 5pm and on Weekends and Holidays, please page [phone] if in ICU or [phone] if on RNF. Normal [facility] PROGRESS HNO ID: [id number] Author: Sue Bianchi Service: Hospital Medicine Author Type: Physician Type: Progress Notes Filed: 08/27/2019 7:27 AM Note Text: DEPARTMENT OF HOSPITAL MEDICINE PROGRESS NOTE SERVICE DATE: 08/27/2019 SERVICE TIME: 7:24 AM Hospital Medicine/Primary Attending: Sue Bianchi DO NIGHT AND WEEKEND COVERAGE: After 7pm, please call cross cover pager #[phone] Subjective INTERVAL HPI: Patient seen and examined. No acute events overnight. Feels well. No complaint. Has not been out of bed. Denies any pain, nausea, CP or SOB MEDICATIONS: Reviewed Objective PHYSICAL EXAM: BP 134/50 Pulse 77 Temp (Src) 98.6 (Oral) Resp 18 Ht 5' 10 (1.78m) Wt 196 lb 13.9 oz (89.3kg) SpO2 98% BMI 28.25 kg/(m2). O2 Therapy: Room Air Physical Exam Performed Constitutional - Vitals as above, not in acute distress Resp - Clear to auscultate both sides, no wheezes, crackles or rales, no labored breathing CVS- RRR. No murmur, gallop or rub, pulse 2+ GI - NTND, bowel sounds normally heard, no mass palpable BLOCKER AND SEWER- cranial nerves 2 to 12 grossly intact, [...] 08/21/191914 vte non-pharmacologic prophylaxis - none indicated (mo,va) 08/21/191914 activity - mobilize patient ([place]) VTE Prophylaxis: VTE prophylaxis appropriate Disposition: Home with [facility] Plan of care discussed with: Provider, RN, Patient SIGNATURE: Sue Bianchi DO PATIENT NAME: Elizabeth Modi DATE: August 27, 2019 TIME:7:24 AM PAGER/CONTACT #: [phone] Normal [facility] THERAPY NTon 08-27-2019 THERAPY NT HNO ID: [id number] Author: Tanja (Pt) Hoda Service: [facility] Therapy [facility] TH[facility] HNO ID: [id number] Author: Maricarmen SantiagoOtr/Serene) Florentino Service: Occupational Therapy Author Type: Occupational Therapist Type: Therapy (PT/OT/Speech/Resp) Filed: 08/27/2019 9:12 AM Note Text: OCCUPATIONAL THERAPY MISSED VISIT SERVICE DATE: 08/27/2019 SERVICE TIME: 910 to 910 ROOM: [place] (S) Attempted Treatment. Patient not seen due to Surgery. Will follow and reassess post op. SIGNATURE: Maricarmen Good OTR/Serene PATIENT NAME: Elizabeth Modi DATE: August 27, 2019 TIME: 9:12 AM Normal [facility] Basic Panelon 08-26-2019 Creatinine [Mass/Vol] 0.86 mg/dL Normal 0.67-1.17 [facility] Comment on above: Result Comment: Use of this assay is not recommended for patients undergoing treatment with phenindione, due to the potential for falsely depressed results. Performed By: #### P 8 #### [place] [address] Anion gap [Moles/Vol] 12 mmol/L Normal 8-16 [facility] Comment on above: Performed By: #### P 8 #### [address] [address] CO2 [Moles/Vol] 25 mmol/L Normal 21-32 [facility] Comment on above: Performed By: #### P 8 #### [place] [address] Urea nitrogen [Mass/Vol] 18 mg/dL Normal 7-18 [facility] Comment on above: Performed By: #### P 8 #### [facility] [address] [place], [place] [address] Calcium [Mass/Vol] 7.8 mg/dL Low 8.5-10.1 [facility] Comment on above: Performed By: #### P 8 #### [facility] [address] [place], [place] [address] Glucose [Mass/Vol] 114 mg/dL High 70-99 [facility] Comment on above: Performed By: #### P 8 #### [facility] [address] [place], [place] [address] Chloride [Moles/Vol] 104 mmol/L Normal 98-107 [facility] Comment on above: Performed By: #### P 8 #### [facility] [address] [place], [place] [address] Potassium [Moles/Vol] 3.8 mmol/L Normal 3.5-5.1 [facility] Comment on above: Performed By: #### P 8 #### [facility] [address] [place], [place] [address] Sodium [Moles/Vol] 137 mmol/L Normal 136-145 [facility] Comment on above: Performed By: #### P 8 #### [facility] [address] [place], [place] [address] CASE MANAGEMon 08-26-2019 CASE MANAGEM HNO ID: [id number] Author: Christina Perez Service: Care Management Author Type: ? Type: Care Mgt Progress Note Filed: 08/26/2019 10:50 AM Note Text: CARE MANAGEMENT PROGRESS NOTE SERVICE DATE: 08/26/2019 SERVICE TIME: 1000 LOS: 5 days IMM Follow Up Copy Given: Yes Copy given to:: Patient Method: In Person SIGNATURE: Christina Perez PATIENT NAME: Elizabeth Modi DATE: August 26, 2019 TIME: 10:50 AM PAGER/CONTACT #: [phone] [facility] CASE MANAGEM HNO ID: [id number] Author: Tami Izquierdo) KAVIN Patricio Service: Care Management Author Type: Registered Nurse Type: Care Mgt Progress Note Filed: 08/26/2019 10:17 AM Note Text: CARE MANAGEMENT PROGRESS NOTE SERVICE DATE: 08/26/2019 SERVICE TIME: 10:15 AM LOS: 5 days Chart reviewed. Plan now is for arteriogram likely next week and then possibly bka v aka pending results. Vascular and Ortho follow. Referral to [facility] for AR. Will follow clinical progress. SIGNATURE: Tami Patricio RN PATIENT NAME: Elizabeth Modi DATE: August 26, 2019 TIME: 10:15 AM PAGER/CONTACT #: [phone] [facility] CONSULT PROGon 08-26-2019 CONSULT PROG HNO ID: [id number] Author: Doris Eden Service: Endocrinology Author Type: Physician Type: Consult Progress Note Filed: 08/26/2019 8:09 AM Note Text: ENDOCRINOLOGY CONSULT PROGRESS NOTE SERVICE DATE: 08/26/2019 SERVICE TIME: 8:00 AM Subjective INTERVAL HPI: Pt followed for diabetes mellitus type 2 with complications. Tr from [facility]; adm for right foot infection and gangrene; [...] (Src) 97.9 (Oral) Resp 18 Ht 5' 10 (1.78m) Wt 169 lb 12.1 oz (77.0kg) [...] qac tid on 3/7 pm. BS high last night; pt did [...] Abs Immature Grans 0.20 thou/cmm High 0.00-0.05 [facility] [place] [employer] [facility] Comment on above: Performed By: #### M AG #### [place] [address] Abs Neut (ANC) 6.48 thou/cmm High 1.78-5.38 [facility] Comment on above: Performed By: #### M AG #### [place] [address] Abs. Baso 0.04 thou/cmm Normal 0.01-0.08 [facility] Comment on above: Performed By: #### M AG #### [place] [address] Abs. Meriwether 0.93 thou/cmm High 0.30-0.82 [facility] Comment on above: Performed By: #### M AG #### [place] [address] Basophils/100 WBC (Bld) 0.4 % Normal [facility] Comment on above: Performed By: #### M AG #### [place] [address] Eosinophils (Bld) [#/Vol] 0.21 thou/cmm Normal 0.04-0. 54 [facility] Comment on above: Performed By: #### M AG #### [place] [address] Eosinophils/100 WBC (Bld) 2.1 % Normal [facility] Comment on above: Performed By: #### M AG #### [facility] [address] [place] [address] Erythrocyte distribution width (RBC) [Ratio] 13.3 % Normal 11.6-14.4 [facility] Comment on above: Performed By: #### M AG #### [facility] [address] [place] [address] Hematocrit (Bld) [Volume fraction] 32.3 % Low 40.1-51.0 [facility] Comment on above: Performed By: #### M AG #### [facility] [address] [place] [address] Hemoglobin (Bld) [Mass/Vol] 10.5 g/dL Low 13.7-17.5 [facility] Comment on above: Performed By: #### M AG #### [place] [address] Immature Grans 2.00 % Normal [facility] Comment on above: Performed By: #### M AG #### [place] [address] Lymphocytes (Bld) [#/Vol] 2.34 thou/cmm Normal 0.84-2. 85 [facility] Comment on above: Performed By: #### M AG #### [place] [address] Lymphocytes/100 WBC (Bld) 22.9 % Normal [facility] Comment on above: Performed By: #### M AG #### [facility] [address] [place] [address] MCH (RBC) [Entitic mass] 28.6 pg Normal 25.7-32.2 [facility] Comment on above: Performed By: #### M AG #### [facility] [address] [place] [address] MCHC (RBC) [Mass/Vol] 32.5 % Normal 32.3-36.5 [facility] Comment on above: Performed By: #### M AG #### [place] [address] MCV (RBC) [Entitic vol] 88.0 fL Normal 83.2-95.6 [facility] Comment on above: Performed By: #### M AG #### [facility] [address] [place], [place] [address] Monocytes/100 WBC (Bld) 9.1 % Normal [facility] Comment on above: Performed By: #### M AG #### [facility] [address] [place], [place] [address] Platelet mean volume (Bld) [Entitic vol] 9.5 fL Normal 8.7-12.0 [facility] Comment on above: Performed By: #### M AG #### [facility] [address] [place], [place] [address] Platelets (Bld) [#/Vol] 474 thou/cmm High 141-365 [facility] Comment on above: Performed By: #### M AG #### [address] [address] RBC (Bld) [#/Vol] 3.67 mil/cmm Low 4.63-6.08 [facility] Comment on above: Performed By: #### M AG #### [facility] [address] [place], [place] [address] RDW SD 43.1 fl Normal 36.1-45.8 [facility] Comment on above: Performed By: #### M AG #### [facility] [address] [place], [place] [address] Seg Neutrophil 63.5 % Normal [facility] Comment on above: Performed By: #### M AG #### [facility] [address] [place], [place] [address] WBC (Bld) [#/Vol] 10.21 thou/cmm High 4.23-9.07 [facility] Comment on above: Performed By: #### M AG #### [facility] [address] [place], [place] [address] PROGRESSon 08-26-2019 PROGRESS HNO ID: [id number] Author: Sue Bianchi Service: Hospital Medicine Author Type: Physician Type: Progress Notes Filed: 08/26/2019 1:35 PM Note Text: DEPARTMENT OF HOSPITAL MEDICINE PROGRESS NOTE SERVICE DATE: 08/26/2019 SERVICE TIME: 1:34 PM Hospital Medicine/Primary Attending: Sue Bianchi, DO NIGHT AND WEEKEND COVERAGE: After 7pm, please call cross cover pager #[phone] Subjective INTERVAL HPI: Patient seen and examined. No acute events overnight. Feels well. No complaint. Tried to get out of bed this am MEDICATIONS: Reviewed Objective PHYSICAL EXAM: BP 124/66 Pulse 87 Temp (Src) 98 (Oral) Resp 18 Ht 5' 10 (1.78m) Wt 169 lb 12.1 oz (77.0kg) SpO2 96% BMI 24.36 kg/(m2). O2 Therapy: Room Air Physical Exam Performed Constitutional - Vitals as above, not in acute distress Resp - Clear to auscultate both sides, no wheezes, crackles or rales, no labored breathing CVS- RRR. No murmur, gallop or rub, pulse 2+ GI - NTND, bowel sounds normally heard, no mass palpable BLOCKER AND SEWER- cranial nerves 2 to 12 grossly intact, no focal motor or sensory deficits noted, speech normal Psych- A ANDO x 3, mood normal Skin- R lower extremity dressing intact, wound care notes and images reviewed Lines, Drains, and Airways Line Peripheral 08/21/19 5772 Assessment Left Antecubital 20 Gauge 4 days [...] 08/21/191914 vte non-pharmacologic prophylaxis - none indicated (mo,oh) 08/21/191914 activity - mobilize patient (mo,va) VTE Prophylaxis: VTE prophylaxis appropriate Disposition: Home with [facility] Plan of care discussed with: Provider, RN, Patient SIGNATURE: Sue Bianchi DO PATIENT NAME: Elizabeth Modi DATE: August 26, 2019 TIME:1:34 PM PAGER/CONTACT #: [phone] [facility] PROGRESS HNO ID: [id number] Author: Tom Prescott DO Service: General Surgery [...] questions or concerns Mon-Mon 6a-5p please page [phone]. After 5pm and on Weekends and Holidays, please page [phone] if in ICU or [phone] if on RNF. Subjective SUBJECTIVE: Patient seen and examined this morning, SARATH. He denies any leg pain. Denies F/C, CP, SOA. Moving the extremity without difficulty. Diet: DIET CARBOHYDRATE CONTROLLED Objective OBJECTIVE: Vitals: Temp (24hrs), Av.7 ?C (98 ?F), Min:36.5 ?C (97.7 ?F), Max:36.8 ?C (98.2 ?F) BP 100/60 Pulse 89 Temp 36.6 ?C (97.9 ?F) (Oral) Resp 18 Ht 177.8 cm (5' 10) Wt 77 kg (169 lb 12.1 oz) [...] THERAPY NTon 08-26-2019 THERAPY NT HNO ID: [id number] Author: Maricarmen Ochoar/Vickie Good Service: Occupational Therapy Author Type: Occupational Therapist Type: Therapy (PT/OT/Speech/Resp) Filed: 08/26/2019 11:15 AM Note Text: Occupational Therapy Treatment SERVICE DATE: 08/26/2019 SERVICE TIME: 919 to 944 ROOM: [id number] Recommended Discharge Disposition: Acute Rehab [...] (ADL);General symptoms and signs-other Interventions Provided: Self Assisted Management (83401);Therapeutic Exercise (30562) Therapeutic Exercise (10060) Treatment Minutes: 10 1 unit Skilled Intervention(s): [...] to patient shrugging shoulders during activity. 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 SIGNATURE: Judson Blackwood/OT PATIENT NAME: Elizabeth Modi DATE: August 26, 2019 TIME: 9:56 AM I reviewed and agree with the documentation corresponding to this therapy visit. SIGNATURE: Maricarmen Good OTR/L DATE: August 26, 2019 TIME: 11:15 AM Evaluation and/or treatment directly supervised by licensed Occupational Therapist. [facility] CONSULT PROGon 08-25-2019 CONSULT PROG HNO ID: [id number] Author: Doris Eden Service: Endocrinology Author Type: Physician Type: Consult Progress Note Filed: 08/25/2019 9:29 AM Note Text: ENDOCRINOLOGY CONSULT PROGRESS NOTE SERVICE DATE: 08/25/2019 SERVICE TIME: 9:10 AM Subjective INTERVAL HPI: Pt followed for diabetes mellitus type 2 with complications. Tr from [facility]; adm for right foot infection and gangrene; [...] (Src) 97.9 (Oral) Resp 18 Ht 5' 10 (1.78m) Wt 169 lb 12.1 oz (77.0kg) [...] August 25, 2019 TIME: 9:29 AM PAGER: [phone] Normal [facility] PLAN OF CAREon 08-25-2019 PLAN OF CARE HNO ID: [id number] Author: Francine Roberts Service: General Surgery Author Type: Resident Type: Plan of Care Filed: 08/25/2019 8:12 AM Note Text: R guillotine amputation dressing changed with xeroform, gauze, Kerlix and jero wrap. Pt tolerated well with no pain. Stump with blood clots and vitalized tissue. No evidence of infection. Francine Roberts MD General Surgery, PGY-3 August 25, 2019 8:11 AM Normal [facility] PROGRESSon 08-25-2019 PROGRESS HNO ID: [id number] Author: Sue Bianchi Service: Hospital Medicine Author Type: Physician Type: Progress Notes Filed: 08/25/2019 4:34 PM Note Text: DEPARTMENT OF HOSPITAL MEDICINE PROGRESS NOTE SERVICE DATE: 08/25/2019 SERVICE TIME: 1:10 PM Hospital Medicine/Primary Attending: Sue Bianchi, DO NIGHT AND WEEKEND COVERAGE: After 7pm, please call cross cover pager #[phone] Subjective INTERVAL HPI: Patient seen and examined. Feeling well. No complaints of pain, CP or SOB MEDICATIONS: Reviewed Objective PHYSICAL EXAM: BP 131/84 Pulse 84 Temp (Src) 98.2 (Oral) Resp 18 Ht 5' 10 (1.78m) Wt 169 lb 12.1 oz (77.0kg) SpO2 97% BMI 24.36 kg/(m2). O2 Therapy: Room Air Physical Exam Performed Constitutional - Vitals as above, not in acute distress Resp - Clear to auscultate both sides, no wheezes, crackles or rales, no labored breathing CVS- RRR. No murmur, gallop or rub, pulse 2+ GI - NTND, bowel sounds normally heard, no mass palpable BLOCKER AND SEWER- cranial nerves 2 to 12 grossly intact, [...] 08/21/191914 vte non-pharmacologic prophylaxis - none indicated (mo,va) 08/21/191914 activity - mobilize patient ([place], [place]) VTE Prophylaxis: VTE prophylaxis appropriate Disposition: Home with [facility] Plan of care discussed with: Provider, RN, Patient SIGNATURE: Sue Bianchi DO PATIENT NAME: Elizabeth Modi DATE: August 25, 2019 TIME:1:10 PM PAGER/CONTACT #: [phone] [facility] PROGRESS HNO ID: [id number] Author: Francine Roberts Service: General Surgery Author [...] questions or concerns Mon-Fri 6a-5p please page [phone]. After 5pm and on Weekends and Holidays, please page [phone] if in ICU or [phone] if on RNF. Subjective SUBJECTIVE: Denies leg pain. Feeling fine this AM. No complaints. Diet: DIET CARBOHYDRATE CONTROLLED Objective OBJECTIVE: Vitals: Temp (24hrs), Av.7 ?C (98 ?F), Min:36.5 ?C (97.7 ?F), Max:36.8 ?C (98.2 ?F) BP 147/53 Pulse 68 Temp 36.6 ?C (97.9 ?F) (Oral) Resp 18 Ht 177.8 cm (5' 10) Wt 77 kg (169 lb 12.1 oz) SpO2 96% BMI 24.36 kg/m? O2 Therapy: Room Air IANDO: Date 08/24/19699 - 08/25/1965808/25/19699 - 08/26/1958 Shift 0666-4995 4569-0778 1685-6582 24 Hour Total 0438-6047 4755-7353 4336-4070 24 Hour Total INTAKE Shift Total OUTPUT [...] questions or concerns Mon-Fri 6a-5p please page [phone]. After 5pm and on Weekends and Holidays, please page [phone] if in ICU or [phone] if on RNF. Normal [facility] Basic Panelon 08-24-2019 Creatinine [Mass/Vol] 0.76 mg/dL Normal 0.67-1.17 [facility] Comment on above: Result Comment: Use of this assay is not recommended for patients undergoing treatment with phenindione, due to the potential for falsely depressed results. Performed By: #### G LMET #### [facility] [address] [place], [place] [address] Anion gap [Moles/Vol] 10 mmol/L Normal 8-16 [facility] Comment on above: Performed By: #### G LMET #### [facility] [address] [place], [place] [address] CO2 [Moles/Vol] 20 mmol/L Low 21-32 [facility] Comment on above: Performed By: #### G LMET #### [facility] [address] [place], [place] [address] Glucose [Mass/Vol] 107 mg/dL High 70-99 [facility] Comment on above: Performed By: #### G LMET #### [facility] [address] [place], [place] [address] Urea nitrogen [Mass/Vol] 12 mg/dL Normal 7-18 [facility] Comment on above: Performed By: #### G LMET #### [facility] [address] [place], [place] [address] Calcium [Mass/Vol] 7.9 mg/dL Low 8.5-10.1 [facility] Comment on above: Performed By: #### G LMET #### [facility] [address] [place], [place] [address] Chloride [Moles/Vol] 105 mmol/L Normal 98-107 [facility] Comment on above: Performed By: #### G LMET #### [facility] [address] [place], [place] [address] Potassium [Moles/Vol] 4.4 mmol/L Normal 3.5-5.1 [facility] Comment on above: Performed By: #### G LMET #### [facility] [address] [place], [place] [address] Sodium [Moles/Vol] 131 mmol/L Low 136-145 [facility] Comment on above: Performed By: #### G LMET #### [facility] [address] [place] [address] CONSULT PROGon 08-24-2019 CONSULT PROG HNO ID: [id number] Author: Hermila Gallegos Service: Endocrinology Author Type: [...] (Src) 98.2 (Temporal) Resp 18 Ht 5' 10 (1.78m) Wt 170 lb 13.7 oz (77.5kg) [...] August 24, 2019 TIME: 3:12 PM PAGER: [phone] Normal [facility] CONSULT PROG HNO ID: [id number] Author: Martha Ryan (Pharmacist) Service: Pharmacy Author [...] pharmacy if questions. MARTHA RYAN, PHARMACIST Ext: [phone] Normal [facility] Hemogram/Diffon 08-24-2019 Abs Immature Grans 0.19 thou/cmm High 0.00-0.05 [facility] Comment on above: Performed By: #### M AG #### [place] [address] Abs Neut (ANC) 6.15 thou/cmm High 1.78-5.38 [facility] Comment on above: Performed By: #### M AG #### [place] [address] Abs. Baso 0.04 thou/cmm Normal 0.01-0.08 [facility] Comment on above: Result Comment: Smea r scanned; tech agrees with automated differential Performed By: #### M AG #### [place] [address] Abs. Meriwether 0.75 thou/cmm Normal 0.30-0.82 [facility] Comment on above: Performed By: #### M AG #### [place] [address] Basophils/100 WBC (Bld) 0.4 % Normal [facility] Comment on above: Performed By: #### M AG #### [place] [address] Eosinophils (Bld) [#/Vol] 0.20 thou/cmm Normal 0.04-0. 54 [facility] Comment on above: Performed By: #### M AG #### [place] [address] Eosinophils/100 WBC (Bld) 2.2 % Normal [facility] Comment on above: Performed By: #### M AG #### [facility] [address] [place], [place] [address] Immature Grans 2.10 % Normal [facility] Comment on above: Performed By: #### M AG #### [facility] [address] [place] [address] Lymphocytes (Bld) [#/Vol] 1.86 thou/cmm Normal 0.84-2. 85 [facility] Comment on above: Performed By: #### M AG #### [facility] [address] [place] [address] Lymphocytes/100 WBC (Bld) 20.2 % Normal [facility] Comment on above: Performed By: #### M AG #### [facility] [address] [place] [address] Monocytes/100 WBC (Bld) 8.2 % Normal [facility] Comment on above: Performed By: #### M AG #### [facility] [address] [place] [address] Seg Neutrophil 66.9 % Normal [facility] Comment on above: Performed By: #### M AG #### [facility] [address] [place] [address] Erythrocyte distribution width (RBC) [Ratio] 13.3 % Normal 11.6-14.4 [facility] Comment on above: Performed By: #### M AG #### [facility] [address] [place] [address] Hematocrit (Bld) [Volume fraction] 36.9 % Low 40.1-51.0 [facility] Comment on above: Performed By: #### M AG #### [facility] [address] [place] [address] Hemoglobin (Bld) [Mass/Vol] 11.7 g/dL Low 13.7-17.5 [facility] Comment on above: Performed By: #### M AG #### [facility] [address] [place] [address] MCH (RBC) [Entitic mass] 28.1 pg Normal 25.7-32.2 [facility] Comment on above: Performed By: #### M AG #### [facility] [address] [place] [address] MCHC (RBC) [Mass/Vol] 31.7 % Low 32.3-36.5 [facility] Comment on above: Performed By: #### M AG #### [facility] [address] [place] [address] MCV (RBC) [Entitic vol] 88.7 fL Normal 83.2-95.6 [facility] Comment on above: Performed By: #### M AG #### [facility] [address] [place] [address] Platelet mean volume (Bld) [Entitic vol] 9.5 fL Normal 8.7-12.0 [facility] Comment on above: Performed By: #### M AG #### [facility] [address] [place] [address] Platelets (Bld) [#/Vol] 428 thou/cmm High 141-365 [facility] Comment on above: Performed By: #### M AG #### [facility] [address] [place] [address] RBC (Bld) [#/Vol] 4.16 mil/cmm Low 4.63-6.08 [facility] Comment on above: Performed By: #### M AG #### [facility] [address] [place] [address] RDW SD 43.4 fl Normal 36.1-45.8 [facility] Comment on above: Performed By: #### M AG #### [facility] [address] [place] [address] WBC (Bld) [#/Vol] 9.20 thou/cmm High 4.23-9.07 [facility] Comment on above: Performed By: #### M AG #### [facility] [address] [place] [address] Magnesium Bloodon 08-24-2019 Magnesium [Mass/Vol] 2.4 mg/dL Normal 1.6-2.6 [facility] Comment on above: Performed By: #### M AG #### [facility] [address] [place] [id number] PROGRESSon 08-24-2019 PROGRESS HNO ID: [id number] Author: Sue Bianchi Service: Hospital Medicine Author Type: Physician Type: Progress Notes Filed: 08/24/2019 5:16 PM Note Text: DEPARTMENT OF HOSPITAL MEDICINE PROGRESS NOTE SERVICE DATE: 08/24/2019 SERVICE TIME: 12:40 PM Hospital Medicine/Primary Attending: Sue Bianchi, DO NIGHT AND WEEKEND COVERAGE: After 7pm, please call cross cover pager #[phone] Subjective INTERVAL HPI: Patient seen and examined. Feeling much better today. Up and eating lunch. No complaints of chest pain or SOB. MEDICATIONS: Reviewed Objective PHYSICAL EXAM: BP 134/59 Pulse 78 Temp (Src) 98.2 (Temporal) Resp 18 Ht 5' 10 (1.78m) Wt 170 lb 13.7 oz (77.5kg) SpO2 98% BMI 24.52 kg/(m2). O2 Therapy: Room Air Physical Exam Performed Constitutional - Vitals as above, not in acute distress Resp - Clear to auscultate both sides, no wheezes, crackles or rales, no labored breathing CVS- RRR. No murmur, gallop or rub, pulse 2+ GI - NTND, bowel sounds normally heard, no mass palpable BLOCKER AND SEWER- cranial nerves 2 to 12 grossly intact, no focal motor or sensory deficits noted, speech normal Psych- A ANDO x 3, mood normal Skin- R lower extremity dressing intact, wound care notes and images reviewed Lines, Drains, and Airways Line Peripheral 08/21/199 Assessment Left Antecubital 20 Gauge 2 days Peripheral 08/21/19 2240 Assessment Right Antecubital 20 Gauge 2 days [...] 08/21/191914 vte non-pharmacologic prophylaxis - none indicated (mo,va) 08/21/191914 activity - mobilize patient ([place], [place]) VTE Prophylaxis: VTE prophylaxis appropriate Disposition: Home with [facility] Plan of care discussed with: Provider, RN, Patient SIGNATURE: Sue Bianchi DO PATIENT NAME: Elizabeth Modi DATE: August 24, 2019 TIME:12:40 PM PAGER/CONTACT #: [phone] [facility] PROGRESS HNO ID: [id number] Author: Edy Paredes Service: Infectious Disease Author Type: Physician Type: Progress Notes Filed: 08/24/2019 9:20 AM Note Text: Edy Paredes MD, MS, FACP, [facility] Division of Infectious Diseses [address] [place] [address] Office: [phone] INFECTIOUS DISEASE CONSULT PROGRESS NOTE SERVICE DATE: [...] (Oral) Resp 18 Ht 177.8 cm (5' 10) Wt 77.5 kg (170 lb 13.7 oz) [...] off. SIGNATURE: Edy Paredes MD, MS, FACP, [facility] PATIENT NAME: Elizabeth Modi DATE: August 24, 2019 TIME: 9:16 AM PAGER/CONTACT #: [phone] Mela [facility] PROGRESS HNO ID: [id number] Author: Francine Roberts Service: Vascular Surgery Author [...] questions or concerns Mon-Fri 6a-5p please page [phone]. After 5pm and on Weekends and Holidays, please page [phone] if in ICU or [phone] if on RNF. Subjective SUBJECTIVE: Denies leg pain. Feeling better overall. No complaints. Tolerating a diet. Diet: DIET CARBOHYDRATE CONTROLLED Objective OBJECTIVE: Vitals: Temp (24hrs), Av.5 ?C (97.7 ?F), Min:36 ?C (96.8 ?F), Max:36.9 ?C (98.4 ?F) BP 128/58 Pulse 77 Temp 36.9 ?C (98.4 ?F) (Oral) Resp 16 Ht 177.8 cm (5' 10) Wt 85 kg (187 lb 6.3 oz) SpO2 94% BMI 26.89 kg/m? O2 Therapy: Nasal Cannula IANDO: Date 08/23/19 07 - 08/24/19 0659 08/24/19 07 - 08/25/19 0659 Shift 8772-3945 5345-5702 5139-4497 24 Hour Total 6847-9352 5661-1452 1281-3945 24 Hour Total INTAKE IV 625 625 OR Crystalloid intake (mL) 250 250 Volume (mL) (lactated ringers infusion) 125 125 Volume (mL) (vancomycin iv piggyback 1.25 g in D5W 250 mL (VANCOCIN)) 250 250 Shift Total 625 625 OUTPUT Urine 413 977 8638 Void (ml) 532 187 8433 Blood 50 50 Estimated Blood loss 50 50 Shift Total 396 173 9056 Weight (kg) 85 85 85 85 85 [...] 3 g in NaCl 0.9% 100 mL MB+/ADD-[place] (UNASYN) 3 g INTRAVENOUS q 6 H [...] 0 Phosphate [Mass/Vol] 2.3 mg/dL Low 2.5-4.9 [facility] Comment on above: Performed By: #### G LMET #### [place] [address] THERAPY NTon 08-24-2019 THERAPY NT HNO ID: [id number] Author: Lizeth Cobos Service: Physical Therapy Author Type: Physical Therapist Type: Therapy (PT/OT/Speech/Resp) Filed: 08/24/2019 2:49 PM Note Text: Physical Therapy Evaluation SERVICE DATE: 08/24/2019 SERVICE TIME: 1325 to 1346 ROOM: [place] [address] Recommended Discharge Disposition: Acute Rehab Recommended Discharge [...] Weakness (generalized) Interventions Provided: Evaluation $ Evaluation-Low (86702) Billed Units: 1 unit History and examination [...] History: thyroid, HTN, DM, claudication Patient Report: I wish I could get up to that chair, but I am so used to pushing with my right leg to stand. Pt agrees to PT evaluation. Home Environment [...] details for this therapy evaluation/treatment. SIGNATURE: Lizeth Cobos, PT PATIENT NAME: Elizabeth Modi DATE: August 24, 2019 TIME: 2:43 PM Normal [facility] THERAPY NT HNO ID: [id number] Author: Susan SantiagoOtr/Vickie Miner Service: Occupational Therapy Author Type: Occupational Therapist Type: Therapy (PT/OT/Speech/Resp) Filed: 08/24/2019 1:07 PM Note Text: Occupational Therapy Evaluation SERVICE DATE: 08/24/2019 SERVICE TIME: 1133 to 1208 ROOM: [id number] Recommended Discharge Disposition: Acute Rehab Justification For [...] (ADL);General symptoms and signs-other Interventions Provided: Evaluation;Self Assisted Management (09875) $ Evaluation-Moderate (58347) Billed Units: 1 unit OT Evaluation Moderate [...] occupational performance: thyroid, HTN, DM, claudication Self Assisted Management (90884) Treatment Minutes: 10 1 unit Skilled Intervention(s): [...] lower extremity. 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 Patient agreeable to therapy. I have no pain at all. Denies pain before/after transfers. Home Environment Patient [...] complete details for this therapy evaluation/treatment. SIGNATURE: NDAIR Cox/Serene PATIENT NAME: Elizabeth Modi DATE: August 24, 2019 TIME: 1:01 PM Normal [facility] ANES [place] 08-23-2019 ANES POST HNO ID: [id number] Author: Sj Huizar Service: Anesthesiology Author Type: [...] 2019 TIME: 11:24 AM PAGER/CONTACT #: [phone] [facility] ANES PREOPon 08-23-2019 ANES PREOP HNO ID: [id number] Author: Sj Huizar Service: Anesthesiology Author Type: Physician Type: Anesthesia PreOp Filed: 08/23/2019 8:34 AM Note Text: ANESTHESIOLOGY DAY OF SURGERY NOTE SERVICE DATE: 08/23/2019 SERVICE TIME: 7:52 AM : 1940 Procedure(s) (LRB): GUILLOTINE AMPUTATION OF RIGHT FOOT (Right) Surgeon(s): Gordo Figueroa Estimated body mass index is 26.89 kg/m? as calculated from the following: Height as of this encounter: 177.8 cm (5' 10). Weight as of this encounter: 85 kg [...] Units SUBCUTANEOUS q 12 H Karyna Diego Buddhism 5,000 Units at 08/22/19 0807 - [MAR Hold due to Transfer] aluminum-magnesium hydroxide-simethicone 200-200-20 mg/5 mL 30 mL (MAALOX,MYLANTA,MAG-AL PLUS) 30 mL ORAL DAILY PRN Mohammad F Buddhism - [MAR Hold due to Transfer] ondansetron 4 mg tab(s) (ZOFRAN) 4 mg ORAL q 6 H PRN Mohammad F Buddhism Or - [MAR Hold due to Transfer] ondansetron (PF) 4 mg injection (ZOFRAN) 4 mg INTRAVENOUS q 6 H PRN Mohammad F Buddhism - [MAR Hold due to Transfer] polyethylene glycol 3350 17 g packet (MIRALAX, GLYCOLAX) 17 g ORAL DAILY PRN Mohammad F Buddhism - [MAR Hold due to Transfer] docusate sodium 100 mg cap(s) (COLACE) 100 mg ORAL BID PRN Mohammad F Buddhism - [MAR Hold due to Transfer] magnesium hydroxide 400 mg/5 mL 30 mL (MOM) 30 mL ORAL DAILY PRN Mohammad F Buddhism - [MAR Hold due to Transfer] bisacodyl 10 mg suppository (DULCOLAX) 10 mg RECTAL DAILY PRN Mohammad F Buddhism - [MAR Hold due to Transfer] acetaminophen 650 mg tab(s) (TYLENOL) 650 mg ORAL q 6 H PRN Mohammad F Buddhism - [MAR Hold due to Transfer] atorvastatin 40 mg tab(s) (LIPITOR) 40 mg ORAL DAILY Mohammad F Buddhism 40 mg at 08/22/192009 - [MAR Hold due to Transfer] lisinopril 10 mg tab(s) (ZESTRIL, PRINIVIL) 10 mg ORAL DAILY Mohammad F Buddhism 10 mg at 08/22/19 0807 - [MAR Hold due to Transfer] levothyroxine 25 mcg tab(s) (SYNTHROID) 25 mcg ORAL DAILY Mohammad F Buddhism 25 mcg at 08/22/19 0600 - [MAR Hold due to Transfer] insulin lispro pen (rapid acting) (HumaLOG KWIKPEN) SUBCUTANEOUS w MEALS AND HS Mohammad F Buddhism 1 Units at 08/22/192128 - [MAR Hold due to Transfer] dextrose 40 % 15 g 15 g ORAL PRN Mohammad F Buddhism Or - [MAR Hold due to Transfer] glucagon 1 mg injection (GLUCAGEN) 1 mg INTRAMUSCULAR PRN Mohammad F Buddhism Or - [MAR Hold due to Transfer] dextrose 50% in water 25 mL syringe 12.5 g INTRAVENOUS PRN Mohammad F Buddhism - [MAR Hold due to Transfer] vancomycin iv piggyback 1.25 g in D5W 250 mL (VANCOCIN) 1.25 g INTRAVENOUS q 12 HR Mohammad F Buddhism 250 mL/hr at 08/22/192009 1.25 g at 08/22/192009 - [MAR Hold due to Transfer] vancomycin dosing and monitoring per pharmacy OTHER As Directed Mohammad F Buddhism - [MAR Hold due to Transfer] piperacillin-tazobacta m iv piggyback 3.375 g in dextrose (iso-osmotic) 50 mL (ZOSYN) 3.375 g INTRAVENOUS q 6 H Mohammad F Buddhism 100 mL/hr at 08/23/19 0549 3.375 g at 08/23/19 0549 - [MAR Hold due to Transfer] clindamycin iv piggyback 600 mg in D5W 50 mL (CLEOCIN) 600 mg INTRAVENOUS q 6 H Mohammad F Buddhism 100 mL/hr at 08/23/19 0549 600 mg [...] August 23, 2019 TIME: 8:32 AM CSN: [id number] [facility] BRIEF OP NOTon 08-23-2019 BRIEF OP NOT HNO ID: [id number] Author: Jennifer Crooks Service: General Surgery Author Type: Resident Type: Brief Op Note Filed: 08/23/2019 9:35 AM Note Text: Attestation signed by Gordo Figueroa at 08/23/2019 10:01 AM I was present for the entire procedure and performed the procedure with the assistance of the resident and the salesperson surgical appliances BRIEF OP / PROCEDURE NOTE LOG ID: [id number] Surgery/Procedure Date: 08/23/2019 Incision/Procedure Start Time: 8:42 AM Incision Close/Procedure End Time: 9:04 AM Surgeon(s)/Procedurali st(s) and Lead Laying And Gluing 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 Performed By: #### P 8 #### [facility] [address] [place], [place] [address] Glucose [Mass/Vol] 96 mg/dL Normal 70-99 [facility] Comment on above: Performed By: #### P 8 #### [address] [address] Anion gap [Moles/Vol] 12 mmol/L Normal 8-16 [facility] Comment on above: Performed By: #### P 8 #### [address] [address] Calcium [Mass/Vol] 7.2 mg/dL Low 8.5-10.1 [facility] Comment on above: Performed By: #### P 8 #### [address] [address] CO2 [Moles/Vol] 22 mmol/L Normal 21-32 [facility] Comment on above: Performed By: #### P 8 #### [address] [address] Urea nitrogen [Mass/Vol] 15 mg/dL Normal 7-18 [facility] Comment on above: Performed By: #### P 8 #### [facility] [address] [place], [place] [address] Chloride [Moles/Vol] 103 mmol/L Normal 98-107 [facility] Comment on above: Performed By: #### P 8 #### [address] [address] Potassium [Moles/Vol] 3.8 mmol/L Normal 3.5-5.1 [facility] Comment on above: Performed By: #### P 8 #### [facility] [address] [place], [place] [address] Sodium [Moles/Vol] 133 mmol/L Low 136-145 [facility] Comment on above: Performed By: #### P 8 #### [facility] [address] [place], [place] [address] CASE MGT INIT ASSESon 2019 CASE MGT INIT ASSENRRIQUE HNO ID: [id number] Author: Tami (Rn) KAVIN Patricio Service: Care Management Author Type: Registered Nurse Type: Care Mgt Initial Assessment Filed: 08/23/2019 3:20 PM Note Text: CARE MANAGEMENT: ASSESSMENT AND DISCHARGE PLAN SERVICE DATE: August 23, 2019 SERVICE TIME: 3:18 PM PRIMARY CARE PHYSICIAN: No primary care provider on file. 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 Last discharge within 30 days: No Advance Directive: Current Advance Directive: None Data Entry Technician Attempted to Assist with AD Completion: Yes [...] Mostly I feel financially burdened by my [id number] expenses for my prescription medication:: 0 - Agree Somewhat Risk Score: 0 Patient is categorized as: Low risk < 2 Are you interested in bedside delivery of your medications? No Is Patient Psychosocially Complex?: No ASSESSMENT AND PLAN: Medical Needs: Medical Needs: None Psychosocial Needs: Psychosocial Needs: None FREEDOM OF CHOICE EXPLAINED: [place] of Choice Given: Yes Level of Care Discussed: Inpatient Rehab Facility Financial Disclosure Provided: Yes Financial Disclosure Comments: ESR Provider List: (Pt refused list- would like [facility]. ) POTENTIAL TRANSITION PLANS Rehab Facility Spoke with pt at the bedside. 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 Pt states that he has a PCP in [place]. Pt is s/p right foot amp. Anticipate AR needs at d/c. Await PT/OT evals. Pt would like [facility] rehab- referral sent. Pt will need auth and likely transport at d/c. Will follow. SIGNATURE: Tami Patricio RN PATIENT NAME: Elizabeth Modi DATE: August 23, 2019 TIME: 3:18 PM PAGER/CONTACT #: [phone] [facility] CONSULTon 08-23-2019 CONSULT HNO ID: [id number] Author: Doris Eden Service: Endocrinology Author Type: Physician Type: Consults Filed: 08/23/2019 1:21 PM Note Text: I have reviewed the patient's medical record in detail. Consult note dictated. See orders for Lantus/oral agents. Can use OTC Novolin N at home. Doris Eden MD. Normal [facility] CONSULT HNO ID: [id number] Author: Doris Eden Service: Endocrinology Author Type: Physician Type: Consults Filed: 08/25/2019 9:16 AM Note Text: [facility] PATIENT NAME: ELIZABETH MODI CSN: [id number] DATE OF : 1940 SEX/AGE: M/79 PATIENT TYPE: I HOSP SVC: [facility] LOCATION: [id number] DATE OF SERVICE: 08/23/2019 TIME OF SERVICE: 01:15 PM REFERRING PHYSICIAN: Dexter Chávez MD REASON FOR CONSULTATION: Uncontrolled diabetes. 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 [...] Lantus 10. Doris Eden MD Endocrinology SM:shima /[id number] Normal [facility] CONSULT PROGon 08-23-2019 CONSULT PROG HNO ID: [id number] Author: Isac Navarro (Pharmacist) Service: Pharmacy Author [...] have any questions[place] [phone]. Age: [age] year old Allergies: ALLERGIES No Known Allergies Last 3 Encounter Wt Readings: Date: Wt: 08/21/2019 85 kg (187 lb 6.3 oz) Last 1 Encounter Ht Readings: Date: Ht: 08/21/2019 177.8 cm (5' 10) CrCl: 71.4 mL/min Temp (24hrs), Av.4 ?C [...] 08/23/2019 1830 22.0 ISAC NAVARRO, PHARMACIST Normal [facility] CONSULT PROG HNO ID: [id number] Author: Paulo Fleming Service: Infectious Disease Author [...] (Oral) Resp 18 Ht 177.8 cm (5' 10) Wt 85 kg (187 lb 6.3 oz) [...] labs Paulo Fleming MD Infectious Disease Respiratory [place] Pager: [phone] August 23, 2019 Normal [facility] Hemogram/Diffon 08-23-2019 Abs Immature Grans 0.19 thou/cmm High 0.00-0.05 [facility] Comment on above: Performed By: #### M AG #### [place] [address] Abs Neut (ANC) 15.52 thou/cmm High 1.78-5.38 [facility] Comment on above: Performed By: #### M AG #### [place] [address] Abs. Baso 0.04 thou/cmm Normal 0.01-0.08 [facility] Comment on above: Result Comment: Smea r scanned; tech agrees with automated differential Performed By: #### M AG #### [place] [address] Abs. Meriwether 1.45 thou/cmm High 0.30-0.82 [facility] Comment on above: Performed By: #### M AG #### [place] [address] Basophils/100 WBC (Bld) 0.2 % Normal [facility] Comment on above: Performed By: #### M AG #### [place] [address] Eosinophils (Bld) [#/Vol] 0.21 thou/cmm Normal 0.04-0. 54 [facility] Comment on above: Performed By: #### M AG #### [place] [address] Eosinophils/100 WBC (Bld) 1.1 % Normal [facility] Comment on above: Performed By: #### M AG #### [facility] [address] [place], [place] [address] Immature Grans 1.00 % Normal [facility] Comment on above: Performed By: #### M AG #### [facility] 1 [place] [address] Lymphocytes (Bld) [#/Vol] 1.39 thou/cmm Normal 0.84-2. 85 [facility] Comment on above: Performed By: #### M AG #### [facility] 1 [place] [address] Lymphocytes/100 WBC (Bld) 7.4 % Normal [facility] Comment on above: Performed By: #### M AG #### [facility] [address] [place] [address] Monocytes/100 WBC (Bld) 7.7 % Normal [facility] Comment on above: Performed By: #### M AG #### [facility] [address] [place] [address] Seg Neutrophil 82.6 % Normal [facility] Comment on above: Performed By: #### M AG #### [facility] [address] [place] [address] Erythrocyte distribution width (RBC) [Ratio] 13.2 % Normal 11.6-14.4 [facility] Comment on above: Performed By: #### M AG #### [facility] [address] [place] [address] Hematocrit (Bld) [Volume fraction] 31.0 % Low 40.1-51.0 [facility] Comment on above: Performed By: #### M AG #### [facility] [address] [place] [address] Hemoglobin (Bld) [Mass/Vol] 10.2 g/dL Low 13.7-17.5 [facility] Comment on above: Performed By: #### M AG #### [facility] [address] [place] [address] MCH (RBC) [Entitic mass] 28.7 pg Normal 25.7-32.2 [facility] Comment on above: Performed By: #### M AG #### [facility] [address] [place] [address] MCHC (RBC) [Mass/Vol] 32.9 % Normal 32.3-36.5 [facility] Comment on above: Performed By: #### M AG #### [facility] [address] [place] [address] MCV (RBC) [Entitic vol] 87.1 fL Normal 83.2-95.6 [facility] Comment on above: Performed By: #### M AG #### [facility] [address] [place] [address] Platelet mean volume (Bld) [Entitic vol] 9.6 fL Normal 8.7-12.0 [facility] Comment on above: Performed By: #### M AG #### [place] [address] Platelets (Bld) [#/Vol] 421 thou/cmm High 141-365 [facility] Comment on above: Performed By: #### M AG #### [place] [address] RBC (Bld) [#/Vol] 3.56 mil/cmm Low 4.63-6.08 [facility] Comment on above: Performed By: #### M AG #### [place] [address] RDW SD 42.0 fl Normal 36.1-45.8 [facility] Comment on above: Performed By: #### M AG #### [place] [address] WBC (Bld) [#/Vol] 18.79 thou/cmm High 4.23-9.07 [facility] Comment on above: Performed By: #### M AG #### [place] [address] Hgb A1con 08-23-2019 HbA1c (Bld) [Mass fraction] 9.8 % High 4.2-6.3 [facility] Comment on above: Result Comment: Meth od is National Glycohemoglobin Standardization Program (NGSP) compliant. Performed By: #### M AG #### [facility] [address] [place] [address] HbA1c (Bld) [Mass fraction] 235 mg/dl Normal [facility] Comment on above: Performed By: #### M AG #### [facility] [address] [place] [address] MRSA Screenon 08-23-2019 MRSA DNA ARIELLE+probe Ql (Unsp spec) Test performed at [facility] No MRSA detected. Normal [facility] Comment on above: Performed By: #### F ERR #### [place] [address] Magnesium Bloodon 08-23-2019 Magnesium [Mass/Vol] 0.9 mg/dL Critically low 1.6-2.6 [facility] Comment on above: Performed By: #### M AG #### [place] [address] NURSING PROGon 08-23-2019 NURSING PROG HNO ID: [id number] Author: Karl (Rn) KAVIN Russell Service: Nursing Author Type: Registered Nurse Type: Nursing Progress Note Filed: 08/23/2019 9:27 AM Note Text: Fall risk protocol initiated. Fall risk wrist band applied and yellow sock applied to left foot. SR up x2. Call light in reach. Urinal offered. Normal [facility] NURSING PROG HNO ID: [id number] Author: Marita SantiagoRn) KAVIN Aponte Service: Nursing Author Type: Registered Nurse Type: Nursing Progress Note Filed: 08/23/2019 8:09 AM Note Text: Tech here to take pt to presurgery unit . Pt showing no signs of distress voicing no complaints. Pt taken via cart to presurgery unit Normal [facility] NURSING PROG HNO ID: [id number] Author: Marita SantiagoRn) KAVIN Aponte Service: Nursing Author Type: Registered Nurse Type: Nursing Progress Note Filed: 08/23/2019 8:07 AM Note Text: Report given to presurg RN. Daughter Margaret notified by phone that pt would be going to surgery soon. Daughter states she sparkle her way. Daughter informed on phone that pt would probably be in surgery when she gets here. Daughter states ubderstanding Normal [facility] NURSING PROG HNO ID: [id number] Author: Marita (Rn) KAVIN Aponte Service: Nursing Author Type: Registered Nurse Type: Nursing Progress Note Filed: 08/23/2019 8:11 AM Note Text: Dr. Figueroa into see pt. Dr. Figueroa informing pt that surgery has been moved up to this morning. Pt states understanding. Normal [facility] OPERATIVE NOon 08-23-2019 OPERATIVE NO HNO ID: [id number] Author: Gordo Figueroa Service: Vascular Surgery Author Type: Physician Type: Operative Report Filed: 08/23/2019 1:07 PM Note Text: [facility] - Operative Report ELIZABETH MODI : 1940 AGE: 79. SEX: M PATIENT TYPE: I [facility] [place] [facility] LOCATION: [facility] ATTENDING PHYSICIAN: Ara Singer M.D. CSN NUMBER: [id number] DATE OF SURGERY/PROCEDURE: 08/23/2019 INCISION/PROCEDURE START TIME: 8:42 AM INCISION CLOSE/PROCEDURE END TIME: 9:04 AM PREOPERATIVE DIAGNOSIS: Gangrenous changes of the right foot with gas in the subcutaneous tissues. POSTOPERATIVE DIAGNOSIS: Gangrenous changes of the right foot with gas in the subcutaneous tissues. SURGEON: Gordo Figueroa MD INDUSTRIAL ROOFER: 1. Jennifer Crooks M.D. 2. Irvin Walker, salesperson surgical appliances. SURGERY/PROCEDURE: Guillotine right above ankle/below-knee amputation. ANESTHESIA: [...] recovery area in stable condition. MD RAPHAEL LeyW:[id number] /[id number] [facility] PROGRESSon 08-23-2019 PROGRESS HNO ID: [id number] Author: Sue Bianchi Service: Hospital Medicine Author Type: Physician Type: Progress Notes Filed: 08/23/2019 3:48 PM Note Text: DEPARTMENT OF HOSPITAL MEDICINE PROGRESS NOTE SERVICE DATE: 08/23/2019 SERVICE TIME: 12:20 PM Hospital Medicine/Primary Attending: Sue Bianchi, NIGHT AND WEEKEND COVERAGE: After 7pm, please call cross cover pager #[phone] Subjective INTERVAL HPI: Patient seen and examined. Worsening infection and patient went for amputation this morning. No pain currently and about to eat lunch. Family at bedside. Denies chest pain or SOB. MEDICATIONS: Reviewed Objective PHYSICAL EXAM: BP 126/64 Pulse 73 Temp (Src) 97.7 (Oral) Resp 18 Ht 5' 10 (1.78m) Wt 187 lb 6.3 oz (85.0kg) [...] bowel sounds normally heard, no mass palpable BLOCKER AND SEWER- cranial nerves 2 to 12 grossly intact, [...] 08/21/191914 vte non-pharmacologic prophylaxis - none indicated (mo,va) 08/21/191914 activity - mobilize patient (mo,va) VTE Prophylaxis: VTE prophylaxis appropriate Disposition: Home with [facility] Plan of care discussed with: Provider, RN, Patient SIGNATURE: Sue Bianchi DO PATIENT NAME: Elizabeth Modi DATE: August 23, 2019 TIME:12:20 PM PAGER/CONTACT #: [phone] [facility] PROGRESS HNO ID: [id number] Author: Tom Prescott DO Service: General Surgery [...] questions or concerns Mon-Fri 6a-5p please page [phone]. After 5pm and on Weekends and Holidays, please page [phone] if in ICU or [phone] if on [...] (Temporal) Resp 18 Ht 177.8 cm (5' 10) Wt 85 kg (187 lb 6.3 oz) SpO2 94% BMI 26.89 kg/m? O2 Therapy: Room Air IANDO: Date 08/22/19699 - 08/23/1958 08/23/19699 - 08/24/19 0659 Shift 0169-2429 3476-6135 2537-3866 24 Hour Total 2191-1447 0149-9805 0775-6485 24 Hour Total INTAKE PO 240 240 PO 240 240 Shift Total 240 240 OUTPUT Urine 500 967 417 9053 Void (ml) 500 178 073 9926 Shift Total 500 310 641 4640 Weight (kg) 85 85 85 85 85 [...] mL syringe 12.5 g INTRAVENOUS PRN - [AUG Hold due to Transfer] vancomycin iv piggyback [...] degree (HCC) 08/22/2019 - Gangrene of foot ([facility]) 08/21/2019 - Diabetes (HCC) 08/21/2019 - HTN [...] and plan discussed with attending: Dr. Figueroa, station repairer for Dr. Parmar SIGNATURE: Tom Prescott DO PATIENT NAME: Elizabeth Modi DATE: August 23, 2019 TIME: 8:02 AM Vascular AND Thoracic Surgery Service Pager: For questions or concerns Mon-Mon 6a-5p please page [phone]. After 5pm and on Weekends and Holidays, please page [phone] if in ICU or [phone] if on RNF. Normal [facility] PROGRESS HNO ID: [id number] Author: Cayetano (Cassia Zapata MD Service: Orthopaedic [...] (Temporal) Resp 18 Ht 177.8 cm (5' 10) Wt 85 kg (187 lb 6.3 oz) [...] 08/23/19 TIME: 6:27 AM PAGER/CONTACT #: [phone] [facility] PROGRESS HNO ID: [id number] Author: Tom Prescott DO Service: General Surgery [...] questions or concerns Mon-Mon 6a-5p please page [phone]. After 5pm and on Weekends and Holidays, please page [phone] if in ICU or [phone] if on RNF. Normal [facility] Phosphorus Bloodon 0 Phosphate [Mass/Vol] 2.1 mg/dL Low 2.5-4.9 [facility] Comment on above: Performed By: #### M AG #### [facility] [address] [place], [place] [address] Vancomycin,Randomon 08-23-19 20 INR Coag (Bld) [Relative time] 22.0 mg/L Normal [facility] Comment on above: Result Comment: Trou gh 10.0-20.0 mg/L Peak 18.0-40.0 mg/L Performed By: #### C _ANA #### [facility] [address] [place] [address] CONSULTon 08-22-2019 CONSULT HNO ID: [id number] Author: Paulo Fleming Service: Infectious Disease Author [...] no longer doing that Employment: work with [employer] CURRENT ANTIBIOTICS: Zosyn Clindamycin vancomycin Current other [...] (Oral) Resp 18 Ht 177.8 cm (5' 10) Wt 85 kg (187 lb 6.3 oz) [...] 2019 TIME: 1:42 PM PAGER/CONTACT #: [phone] Normal [facility] CONSULT HNO ID: [id number] Author: Yadi Badillo Service: Orthopaedic Surgery Author Type: Physician Type: Consults Filed: 08/22/2019 6:41 PM Note Text: ORTHOPAEDIC SURGERY CONSULT Pt: ELIZABETH MODI Date of Consultation: 08/22/2019 Physician Consulted: Dr. Badillo Reason for Consultation: Necrotic foot HPI: 79 year old male presented to [facility] on 08/21/2019 with complaints of changes [...] (Oral) Resp 18 Ht 177.8 cm (5' 10) Wt 85 kg (187 lb 6.3 oz) [...] [facility] CONSULT HNO ID: [id number] Author: Ana Luisa Crooks Service: General Surgery [...] questions or concerns Mon-Fri 6a-5p please page [phone]. After 5pm and on Weekends and Holidays, please page [phone] if in ICU or [phone] if on RNF. Service date: 08/22/2019 Service time: 4:01 AM Reason for consult: foot wounds Nature of consult: routine Subjective HPI Mr. Modi is a 79 year old male with necrotic L foot. Patient reports that he has only noticed this over the last week. Initially presented to [facility] for this reason and was transferred to [facility] for care. Denies pain and states [...] 97.5 (Temporal Artery) Resp 16 Ht 5' 10 (1.78m) Wt 187 lb 6.3 oz (85.0kg) [...] CONSULT PROGon 08-22-2019 CONSULT PROG HNO ID: [id number] Author: Adali Murry Service: Wound Care Team Author Type: Nurse Specialist Type: Consult Progress Note Filed: 08/22/2019 11:19 AM Note Text: WOUND CARE CONSULT CLINICAL SPECIALIST NOTE SERVICE DATE: 08/22/2019 SERVICE TIME: 909 TIME SPENT (minutes): 30 REASON FOR CONSULT: Eval R foot necrosis/wound CHIEF COMPLAINT: c/o necrotic toes and tissue to R foot. Subjective HISTORY OF PRESENT ILLNESS: Mr. Modi is a 79 year old male who is seen today with Yolanda Jackman Wound/irrigation district manager, and presented to hospital with complaints [...] (Oral) Resp 18 Ht 177.8 cm (5' 10) Wt 85 kg (187 lb 6.3 oz) [...] on zosyn and vanc. Per ortho note Likely no viable tissue on platar foot for flap coverage if TMA was attempted. Recommend BKA per vascular A photo was taken of the patient's wound(s). Photos can be found under the Get Images tab on Quantitative Medicine. Photos are uploaded by the wound senior care manager and may not be immediately available for viewing. Contact the wound and ostomy care department with questions. SIGNATURE: Adali Murry APRN.BLOCKER AND SEWER PATIENT NAME: Elizabeth Modi DATE: August 22, 2019 TIME: 11:03 AM CONTACT#: [id number] [facility] CONSULT PROG HNO ID: [id number] Author: Jose Walton (Pharmacist) Service: Pharmacy Author [...] have any questions, please contact Pharmacy at [phone]. Age: [age] year old Allergies: ALLERGIES No Known Allergies Last 3 Encounter Wt Readings: Date: Wt: 08/21/2019 85 kg (187 lb 6.3 oz) Last 1 Encounter Ht Readings: Date: Ht: 08/21/2019 177.8 cm (5' 10) CrCl: 66.2 mL/min Temp (24hrs), Av.6 ?C (97.9 ?F), Min:36.4 ?C (97.5 ?F), Max:36.8 ?C (98.2 ?F) - Current Temp: 36.8 ?C (98.2 ?F) Labs BUN (mg/dL) Date Value 08/22/2019 31 (H) Creatinine (mg/dL) Date Value 08/22/2019 0.95 WBC (thou/cmm) Date Value 08/22/2019 19.76 (H) Vancomycin Levels: No results found for: PEGGY Walton, Pharmacist Pager: [phone] Normal [facility] Comprehensive Panelon 2019 ALP [Catalytic activity/Vol] 107 U/L Normal 45-117 [facility] Comment on above: Performed By: #### C _ANA #### [address] [address] Bilirubin [Mass/Vol] 0.5 mg/dL Normal 0.2-1.0 [facility] Comment on above: Result Comment: Use of this assay is not recommended for patients undergoing treatment with eltrombopag due to the potential for falsely elevated results. Performed By: #### C _ANA #### [facility] [address] [place], [place] [address] Protein [Mass/Vol] 6.4 g/dL Normal 6.4-8.2 [facility] Comment on above: Performed By: #### C _ANA #### [facility] [address] [place], [place] [address] ALT [Catalytic activity/Vol] 73 U/L Normal 12-78 [facility] Comment on above: Performed By: #### C _ANA #### [facility] [address] [place], [place] [address] AST [Catalytic activity/Vol] 81 U/L High 15-37 [facility] Comment on above: Performed By: #### C _ANA #### [facility] [address] [place], [place] [address] Creatinine [Mass/Vol] 0.95 mg/dL Normal 0.67-1.17 [facility] Comment on above: Result Comment: Use of this assay is not recommended for patients undergoing treatment with phenindione, due to the potential for falsely depressed results. Performed By: #### C _ANA #### [facility] [address] [place], [place] [address] Albumin [Mass/Vol] 1.7 g/dL Low 3.4-5.0 [facility] Comment on above: Performed By: #### C _ANA #### [facility] [address] [place], [place] [address] Anion gap [Moles/Vol] 12 mmol/L Normal 8-16 [facility] Comment on above: Performed By: #### C _ANA #### [facility] [address] [place], [place] [address] Calcium [Mass/Vol] 7.1 mg/dL Low 8.5-10.1 [facility] Comment on above: Performed By: #### C _ANA #### [facility] [address] [place], [place] [address] CO2 [Moles/Vol] 21 mmol/L Normal 21-32 [facility] Comment on above: Performed By: #### C _ANA #### [facility] [address] [place], [place] [address] Glucose [Mass/Vol] 218 mg/dL High 70-99 [facility] Comment on above: Performed By: #### C _ANA #### [facility] [address] [place], [place] [address] Urea nitrogen [Mass/Vol] 31 mg/dL High 7-18 [facility] Comment on above: Performed By: #### C _ANA #### [facility] [address] [place] [address] Chloride [Moles/Vol] 104 mmol/L Normal 98-107 [facility] Comment on above: Performed By: #### C _ANA #### [facility] [address] [place] [address] Potassium [Moles/Vol] 4.1 mmol/L Normal 3.5-5.1 [facility] Comment on above: Performed By: #### C _ANA #### [facility] [address] [place] [address] Sodium [Moles/Vol] 133 mmol/L Low 136-145 [facility] Comment on above: Performed By: #### C _ANA #### [place] [address] Cult and Smr CAROLINE and AERon 0 08-22-2019 Cult and Smr CAROLINE and AER Test performed at [facility] Rare Mixed skin javier. Moderate Mixed anaerobic javier. No Bacteroides fragilis group isolated. No Clostridium perfringens isolated. Many Gram positive cocci No WBC seen Rare Squamous epithelial cells Normal [facility] Comment on above: Performed By: #### C _ANA #### [facility] [address] [place] [address] Ferritinon 08-22-2019 Ferritin [Mass/Vol] 1342.20 ng/mL High 26.00-[address] [facility] Comment on above: Performed By: #### F ERR #### [facility] [address] [place] [address] Folateon 08-22-2019 Folate 3.80 ng/mL Normal 3.10-17.50 [facility] Comment on above: Performed By: #### P 8 #### [facility] [address] [place] [address] Hemogramon 08-22-2019 Erythrocyte distribution width (RBC) [Ratio] 13.2 % Normal 11.6-14.4 [facility] Comment on above: Performed By: #### F ERR #### [facility] [address] [place] [address] Hematocrit (Bld) [Volume fraction] 28.4 % Low 40.1-51.0 [facility] Comment on above: Performed By: #### F ERR #### [facility] [address] [place] [address] Hemoglobin (Bld) [Mass/Vol] 9.4 g/dL Low 13.7-17.5 [facility] Comment on above: Performed By: #### F ERR #### [facility] [address] [place] [address] MCH (RBC) [Entitic mass] 28.7 pg Normal 25.7-32.2 [facility] Comment on above: Performed By: #### F ERR #### [facility] [address] [place] [address] MCHC (RBC) [Mass/Vol] 33.1 % Normal 32.3-36.5 [facility] Comment on above: Performed By: #### F ERR #### [facility] [address] [place] [address] MCV (RBC) [Entitic vol] 86.9 fL Normal 83.2-95.6 [facility] Comment on above: Performed By: #### F ERR #### [facility] [address] [place] [address] Platelet mean volume (Bld) [Entitic vol] 9.7 fL Normal 8.7-12.0 [facility] Comment on above: Performed By: #### F ERR #### [facility] [address] [place] [address] Platelets (Bld) [#/Vol] 380 thou/cmm High 141-365 [facility] Comment on above: Performed By: #### F ERR #### [facility] [address] [place] [address] RBC (Bld) [#/Vol] 3.27 mil/cmm Low 4.63-6.08 [facility] Comment on above: Performed By: #### F ERR #### [facility] [address] [place], [place] [address] RDW SD 41.6 fl Normal 36.1-45.8 [facility] Comment on above: Performed By: #### F ERR #### [facility] [address] [place], [place] [address] WBC (Bld) [#/Vol] 19.76 thou/cmm High 4.23-9.07 [facility] Comment on above: Performed By: #### F ERR #### [facility] [address] [place] [address] Iron % Saturationon 08-22-19 20 Iron % Saturation 15 % Low 20-55 [facility] Comment on above: Performed By: #### M AG #### [place] [address] Iron Binding Cap. 150 ug/dL Low 250-450 [facility] Comment on above: Performed By: #### M AG #### [place] [id number] Iron Serum 23 ug/dL Low 65-175 [facility] Comment on above: Performed By: #### M AG #### [place] [address] MRI FOOT/TOES WO IVCON RTon 08-22-2019 MRI FOOT/TOES WO IVCON RT * * *Final Rep ort* * * DATE OF EXAM: Aug 22 2019 12:23PM [facility] 0195 - MRI FOOT/TOES WO [...] be reactive or related to early osteomyelitis. Resolution Expert: ONEL Transcribe Date/Time: Aug 22 2019 12:47P Dictated by : PRISCILA RUELAS MD This examination was interpreted and the report reviewed and electronically signed by: PRISCILA RUELAS MD on Aug 22 2019 1:06PM EST Normal [facility] NURSING PROGon 08-22-2019 NURSING PROG HNO ID: [id number] Author: Marita (Rn) KAVIN Aponte Service: Nursing Author Type: Registered Nurse Type: Nursing Progress Note Filed: 08/22/2019 2:17 PM Note Text: Dr. Parmar into see pt. Pt to be scheduled for angiogram tomorrow. Pt states understanding of procedure Normal [facility] NUTRITIONon 08-22-2019 NUTRITION HNO ID: [id number] Author: Marisol Falcon RD Service: Nutrition Therapy [...] of fat/muscle stores;Patient/family self-report Estimated kilocalorie needs: 0908-9872 Calorie Calculation Method: 30-35 kcals/kg Estimated protein [...] estimated energy needs over: few days -states past few days I eat when I remember -loss of appetite Current Diet: DIET CARBOHYDRATE CONTROLLED Anthropometrics: Height: 177.8 cm (5' 10) Weight: 85 kg (187 lb 6.3 oz) [...] 22, 2019 TIME: 2:27 PM PAGER: [phone] [facility] PROGRESSon 08-22-2019 PROGRESS HNO ID: [id number] Author: Sue Bianchi Service: Hospital Medicine Author Type: Physician Type: Progress Notes Filed: 08/22/2019 3:29 PM Note Text: DEPARTMENT OF HOSPITAL MEDICINE PROGRESS NOTE SERVICE DATE: 08/22/2019 SERVICE TIME: 2:32 PM Hospital Medicine/Primary Attending: Sue Bianchi, DO NIGHT AND WEEKEND COVERAGE: After 7pm, please call cross cover pager #[phone] Subjective INTERVAL HPI: Patient seen and examined. No acute events overnight. He reports minimal pain in the foot. Pending MRI and PVR. He has been seen by ortho and vascular surgery. No history of similar. MEDICATIONS: Reviewed Objective PHYSICAL EXAM: BP 122/55 Pulse 78 Temp (Src) 98.2 (Oral) Resp 18 Ht 5' 10 (1.78m) Wt 187 lb 6.3 oz (85.0kg) SpO2 94% BMI 26.89 kg/(m2). O2 Therapy: Room Air Physical Exam Performed Constitutional - Vitals as above, not in acute distress Resp - Clear to auscultate both sides, no wheezes, crackles or rales, no labored breathing CVS- RRR. No murmur, gallop or rub, pulse 2+ GI - NTND, bowel sounds normally heard, no mass palpable BLOCKER AND SEWER- cranial nerves 2 to 12 grossly intact, [...] 08/21/191914 vte non-pharmacologic prophylaxis - none indicated (mo,va) 08/21/191914 activity - mobilize patient ([place]) VTE Prophylaxis: VTE prophylaxis appropriate Disposition: Home with [facility] Plan of care discussed with: Provider, RN, Patient SIGNATURE: Sue Bianchi DO PATIENT NAME: Elizabeth Modi DATE: August 22, 2019 TIME: 2:32 PM PAGER/CONTACT #: [phone] Normal [facility] US ARTERIAL [...] Left small vessel disease. Technologist: Josefa Sweeney T Ordering physician: ARA SINGER Interpreting physician: Ryan Allen MD Final RP Resolution Expert: RICHARD Transcribe Date/Time: Aug 22 2019 9:04A Dictated by : RYAN ALLEN MD This examination was interpreted and the report reviewed and electronically signed by: RYAN ALLEN MD on Aug 22 2019 11:41AM EST Normal [facility] Vitamin B12on 08-22-2019 Cobalamin (Vitamin B12) [Mass/Vol] 944 pg/mL Normal 193-986 [facility] Comment on above: Performed By: #### P 8 #### [facility] [address] [address] CONSULT PROGon 08-21-2019 CONSULT PROG HNO ID: [id number] Author: Rahat Lemus (Pharmacist) Service: Pharmacy Author Type: Pharmacist Type: Consult Progress Note Filed: 08/21/2019 9:20 PM Note Text: Renal Dose Monitoring 1. Estimated CrCl: 52 (calculated from previous lab reported from MD of 1.2 and using IBW) 2. Recommendations: Zosyn 3.375g Dose:No Change Frequency:Increase frequency to Q6H - Rationale: Patient CrCl is greater than 40 and being infused over 30 minutes Pharmacy [id number] [facility] CONSULT PROG HNO ID: [id number] Author: Rahat Lemus (Pharmacist) Service: Pharmacy Author [...] have any questions[place] [phone]. Age: [age] year old Allergies: ALLERGIES No Known Allergies Last 3 Encounter Wt Readings: Date: Wt: 08/21/2019 85 kg (187 lb 6.3 oz) Last 1 Encounter Ht Readings: Date: Ht: 08/21/2019 177.8 cm (5' 10) CrCl: 52 mL/min (calculated using IBW and [...] HISTORY PHYSICALon 0 HISTORY PHYSICAL HNO ID: [id number] Author: Karyna Perez Service: Hospital Medicine Author [...] After 7pm, please call cross cover pager #[phone] Subjective CHIEF COMPLAINT / REASON FOR ADMISSION: Right foot gangrene HPI: This is a 79 year old male has a past medical history of DM (diabetes mellitus) (HCC), Dyslipidemia, HTN (hypertension), and Hypothyroidism. sent as a transfer from [facility] for blackish coloration of multiple [...] the right foot and was sent to [facility] for further evaluation.For this illness, patient's [...] 97.5 (Temporal Artery) Resp 16 Ht 5' 10 (1.78m) Wt 187 lb 6.3 oz (85.0kg) [...] 5,000 Units SUBCUTANEOUS EVERY 12 HOURS 08/21/19 191 -- The patient at bedside was counseled about clinical status, laboratory/imaging results, diagnoses, medication side effects, risk, and treatment plan, all questions were answered to patient's satisfaction and verbalized understanding SIGNATURE: Karyna Perez MD PATIENT NAME: Elizabeth Modi PAGER/CONTACT #: After 7 pm [phone] Disclaimer: Portions of this note may have been generated using [employer]amboo[employer] voice recognition software. Reasonable efforts were made to correct any dictation errors that resulted due to the programming of this software but some may still be present. [facility] HOSPon 08-21-2019 HOSP Patient:Elizabeth Modi MRN: Height:5' 10(1.778 m) Weight:194 lb 6.4 oz (88.179 kg) [...] After 7pm, please call cross cover pager #[phone] Subjective CHIEF COMPLAINT / REASON FOR ADMISSION: Right foot gangrene HPI: This is a 79 year old male has a past medical history of DM (diabetes mellitus) (HCC), Dyslipidemia, HTN (hypertension), and Hypothyroidism. sent as a transfer from [facility] for blackish coloration of multiple [...] the right foot and was sent to [facility] for further evaluation.For this illness, patient's [...] 97.5 (Temporal Artery) Resp 16 Ht 5' 10 (1.78m) Wt 187 lb 6.3 oz (85.0kg) [...] 5,000 Units SUBCUTANEOUS EVERY 12 HOURS 08/21/19 191 -- The patient at bedside was counseled about clinical status, laboratory/imaging results, diagnoses, medication side effects, risk, and treatment plan, all questions were answered to patient's satisfaction and verbalized understanding SIGNATURE: Karyna Perez MD PATIENT NAME: Elizabeth Modi PAGER/CONTACT #: After 7 pm [phone] Disclaimer: Portions of this note may have been generated using [employer] voice recognition software. Reasonable efforts were made [...] RECOMMENDATIONS/PLAN: Pharmacy consulted for vancomycin dosing for Eliazbeth Modi, a 79 year old, male who [...] have any questions, [place] [phone]. Age: [age] year old Allergies: ALLERGIES No Known Allergies Last 3 Encounter Wt Readings: Date: Wt: 08/21/2019 85 kg (187 lb 6.3 oz) Last 1 Encounter Ht Readings: Date: Ht: 08/21/2019 177.8 cm (5' 10) CrCl: 52 mL/min (calculated using IBW and [...] and being infused over 30 minutes Pharmacy [id number] Ana Luisa Crooks MD 08/22/2019 6:04 AM [...] questions or concerns Mon-Fri 6a-5p please page [phone]. After 5pm and on Weekends and Holidays, please page [phone] if in ICU or [phone] if on RNF. Service date: 08/22/2019 Service time: 4:01 AM Reason for consult: foot wounds Nature of consult: routine Subjective HPI Mr. Modi is a 79 year old male with necrotic L foot. Patient reports that he has only noticed this over the last week. Initially presented to [place] for this reason and was transferred to [facility] for care. Denies pain and states [...] 97.5 (Temporal Artery) Resp 16 Ht 5' 10 (1.78m) Wt 187 lb 6.3 oz (85.0kg) [...] or 2174 if on RNF. Previous Version Kristie Adam 08/22/2019 9:21 AM Addendum PHARMACY VANCOMYCIN DOSING [...] have any questions, please contact Pharmacy at [phone]. Age: [age] year old Allergies: ALLERGIES No Known Allergies Last 3 Encounter Wt Readings: Date: Wt: 08/21/2019 85 kg (187 lb 6.3 oz) Last 1 Encounter Ht Readings: Date: Ht: 08/21/2019 177.8 cm (5' 10) CrCl: 66.2 mL/min Temp (24hrs), Av.6 ?C (97.9 ?F), Min:36.4 ?C (97.5 ?F), Max:36.8 ?C (98.2 ?F) - Current Temp: 36.8 ?C (98.2 ?F) Labs BUN (mg/dL) Date Value 08/22/2019 31 (H) Creatinine (mg/dL) Date Value 08/22/2019 0.95 WBC (thou/cmm) Date Value 08/22/2019 19.76 (H) Vancomycin Levels: No results found for: PEGGY Walton, Pharmacist Pager: [phone] Previous Version Adali Murry APRN.BLOCKER AND SEWER 08/22/2019 11:19 AM Signed WOUND CARE CONSULT CLINICAL SPECIALIST NOTE SERVICE DATE: 08/22/2019 SERVICE TIME: 09 TIME SPENT (minutes): 30 REASON FOR CONSULT: Eval R foot necrosis/wound CHIEF COMPLAINT: c/o necrotic toes and tissue to R foot. Subjective HISTORY OF PRESENT ILLNESS: Mr. Modi is a 79 year old male who is seen today with Yolanda Jackman Wound/irrigation district manager, and presented to hospital with complaints [...] (Oral) Resp 18 Ht 177.8 cm (5' 10) Wt 85 kg (187 lb 6.3 oz) [...] on zosyn and vanc. Per ortho note Likely no viable tissue on platar foot for flap coverage if TMA was attempted. Recommend BKA per vascular A photo was taken of the patient's wound(s). Photos can be found under the Get Images tab on [facility]. Photos are uploaded by the wound senior care manager and may not be immediately available for viewing. Contact the wound and ostomy care department with questions. SIGNATURE: Adali Murry APRN.BLOCKER AND SEWER PATIENT NAME: Elizabeth Modi DATE: August 22, 2019 TIME: 11:03 AM CONTACT#: [id number] Yadi Badillo DPM 08/22/2019 6:41 PM Signed ORTHOPAEDIC SURGERY CONSULT Pt: ELIZABETH MODI Date of Consultation: 08/22/2019 Physician Consulted: Dr. Badillo Reason for Consultation: Necrotic foot HPI: 79 year old male presented to [facility] on 08/21/2019 with complaints of changes [...] (Oral) Resp 18 Ht 177.8 cm (5' 10) Wt 85 kg (187 lb 6.3 oz) [...] no longer doing that Employment: work with [employer] CURRENT ANTIBIOTICS: Zosyn Clindamycin vancomycin Current other [...] (Oral) Resp 18 Ht 177.8 cm (5' 10) Wt 85 kg (187 lb 6.3 oz) [...] of fat/muscle stores;Patient/family self-report Estimated kilocalorie needs: 1309-6349 Calorie Calculation Method: 30-35 kcals/kg Estimated protein [...] estimated energy needs over: few days -states past few days I eat when I remember -loss of appetite Current Diet: DIET CARBOHYDRATE CONTROLLED Anthropometrics: Height: 177.8 cm (5' 10) Weight: 85 kg (187 lb 6.3 oz) Dosing Weight: 75.5 kg (166 lb 7.2 oz) Body mass index is 26.89 kg/m?. Overweight Physical Exam: Subcutaneous fat loss: Mild Muscle loss: Moderate Potential micronutrient deficiency: Nails Edema/Ascites: No edema GI Symptoms: Anorexia Functional Status: Regressed Potential Signs of Inflammation: Hyperglycemia;Hypoalbu minemia;Imaging studies SIGNATURE: Kacie Marquez, Food Counter Worker PATIENT NAME: Elizabeth Modi DATE: August 22, 2019 TIME: 2:27 PM PAGER: [phone] Previous Version Sue Bianchi DO 08/22/2019 3:29 PM Signed [facility] MEDICINE PROGRESS NOTE SERVICE DATE: 08/22/2019 SERVICE TIME: 2:32 PM Hospital Medicine/Primary Attending: Sue Bianchi DO NIGHT AND WEEKEND COVERAGE: After 7pm, please call cross cover pager #[phone] Subjective INTERVAL HPI: Patient seen and examined. No acute events overnight. He reports minimal pain in the foot. Pending MRI and PVR. He has been seen by ortho and vascular surgery. No history of similar. MEDICATIONS: Reviewed Objective PHYSICAL EXAM: BP 122/55 Pulse 78 Temp (Src) 98.2 (Oral) Resp 18 Ht 5' 10 (1.78m) Wt 187 lb 6.3 oz (85.0kg) SpO2 94% BMI 26.89 kg/(m2). O2 Therapy: Room Air Physical Exam Performed Constitutional - Vitals as above, not in acute distress Resp - Clear to auscultate both sides, no wheezes, crackles or rales, no labored breathing CVS- RRR. No murmur, gallop or rub, pulse 2+ GI - NTND, bowel sounds normally heard, no mass palpable BLOCKER AND SEWER- cranial nerves 2 to 12 grossly intact, [...] 08/21/191914 vte non-pharmacologic prophylaxis - none indicated (mo,oh) 08/21/191914 activity - mobilize patient (mo,va) VTE Prophylaxis: VTE prophylaxis appropriate Disposition: Home with [facility] Plan of care discussed with: Provider, RN, Patient SIGNATURE: Sue Bianchi DO PATIENT NAME: Elizabeth Modi DATE: August 22, 2019 TIME: 2:32 PM PAGER/CONTACT #: [phone] Gordo Figueroa MD 08/23/2019 1:07 PM Signed [facility] - Operative Report ELIZABETH MODI : 1940 AGE: 79. SEX: M PATIENT TYPE: I HOSP SVC: ORCA LOCATION: [facility] ATTENDING PHYSICIAN: Aar Singer M.D. CSN NUMBER: [id number] DATE OF SURGERY/PROCEDURE: 08/23/2019 INCISION/PROCEDURE START TIME: 8:42 AM INCISION CLOSE/PROCEDURE END TIME: 9:04 AM PREOPERATIVE DIAGNOSIS: Gangrenous changes of the right foot with gas in the subcutaneous tissues. POSTOPERATIVE DIAGNOSIS: Gangrenous changes of the right foot with gas in the subcutaneous tissues. SURGEON: Gordo Figueroa MD INDUSTRIAL ROOFER: 1. Jennifer Crooks M.D. 2. Irvin Walker, salesperson surgical appliances. SURGERY/PROCEDURE: Guillotine right above ankle/below-knee amputation. ANESTHESIA: [...] area in stable condition. Gordo Figueroa MD DJW:[id number] /[id number] Previous Version Doris Eden MD 08/25/2019 9:16 AM Signed [facility] PATIENT NAME: ELIZABETH MODI CSN: [id number] DATE OF : 1940 SEX/AGE: M/79 PATIENT TYPE: I HOSP [facility] [place] [facility] LOCATION: [id number] DATE OF SERVICE: 08/23/2019 TIME OF SERVICE: 01:15 PM REFERRING PHYSICIAN: Dexter Chávez MD REASON FOR CONSULTATION: Uncontrolled diabetes. 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 [...] Lantus 10. Doris Eden MD Endocrinology SM:shima /[id number] Tom Prescott DO, DO 08/23/2019 1:43 AM [...] questions or concerns Mon-Fri 6a-5p please page [phone]. After 5pm and on Weekends and Holidays, [...] (Temporal) Resp 18 Ht 177.8 cm (5' 10) Wt 85 kg (187 lb 6.3 oz) [...] 6:27 AM PAGER/CONTACT #: [phone] Marita Aponte, KAVIN, RN 08/23/2019 8:[address] Figueroa into see pt. Dr. Figueroa informing pt that surgery has been moved up to this morning. Pt states understanding. Marita Aponte, RN, RN 08/23/2019 8:07 AM Signed Report given to urg RN. Daughter Margaret notified by phone that pt would be going to surgery soon. Daughter states she sparkle her way. Daughter informed on phone that pt would [...] as of this encounter: 177.8 cm (5' 10). Weight as of this encounter: 85 kg [...] Units SUBCUTANEOUS q 12 H Mohammad F Buddhism 5,000 Units at 08/22/19 0807 - [MAR Hold due to Transfer] aluminum-magnesium hydroxide-simethicone 200-200-20 mg/5 mL 30 mL (MAALOX,MYLANTA,MAG-AL PLUS) 30 mL ORAL DAILY PRN Mohammad F Buddhism - [MAR Hold due to Transfer] ondansetron 4 mg tab(s) (ZOFRAN) 4 mg ORAL q 6 H PRN Mohammad F Buddhism Or - [MAR Hold due to Transfer] ondansetron (PF) 4 mg injection (ZOFRAN) 4 mg INTRAVENOUS q 6 H PRN Mohammad F Buddhism - [MAR Hold due to Transfer] polyethylene glycol 3350 17 g packet (MIRALAX, GLYCOLAX) 17 g ORAL DAILY PRN Mohammad F Buddhism - [MAR Hold due to Transfer] docusate sodium 100 mg cap(s) (COLACE) 100 mg ORAL BID PRN Mohammad F Buddhism - [MAR Hold due to Transfer] magnesium hydroxide 400 mg/5 mL 30 mL (MOM) 30 mL ORAL DAILY PRN Mohammad F Buddhism - [MAR Hold due to Transfer] bisacodyl 10 mg suppository (DULCOLAX) 10 mg RECTAL DAILY PRN Mohammad F Buddhism - [MAR Hold due to Transfer] acetaminophen 650 mg tab(s) (TYLENOL) 650 mg ORAL q 6 H PRN Mohammad F Buddhism - [MAR Hold due to Transfer] atorvastatin 40 mg tab(s) (LIPITOR) 40 mg ORAL DAILY Mohammad F Buddhism 40 mg at 08/22/192009 - [MAR Hold due to Transfer] lisinopril 10 mg tab(s) (ZESTRIL, PRINIVIL) 10 mg ORAL DAILY Mohammad F Buddhism 10 mg at 08/22/19 0807 - [MAR Hold due to Transfer] levothyroxine 25 mcg tab(s) (SYNTHROID) 25 mcg ORAL DAILY Mohammad F Buddhism 25 mcg at 08/22/19 0600 - [MAR Hold due to Transfer] insulin lispro pen (rapid acting) (HumaLOG KWIKPEN) SUBCUTANEOUS w MEALS AND HS Mohammad F Buddhism 1 Units at 08/22/192128 - [MAR Hold due to Transfer] dextrose 40 % 15 g 15 g ORAL PRN Mohammad F Buddhism Or - [MAR Hold due to Transfer] glucagon 1 mg injection (GLUCAGEN) 1 mg INTRAMUSCULAR PRN Mohammad F Buddhism Or - [MAR Hold due to Transfer] dextrose 50% in water 25 mL syringe 12.5 g INTRAVENOUS PRN Mohammad F Buddhism - [MAR Hold due to Transfer] vancomycin iv piggyback 1.25 g in D5W 250 mL (VANCOCIN) 1.25 g INTRAVENOUS q 12 HR Mohammad F Buddhism 250 mL/hr at 08/22/192009 1.25 g at 08/22/192009 - [MAR Hold due to Transfer] vancomycin dosing and monitoring per pharmacy OTHER As Directed Mohammad F Buddhism - [MAR Hold due to Transfer] piperacillin-tazobacta m iv piggyback 3.375 g in dextrose (iso-osmotic) 50 mL (ZOSYN) 3.375 g INTRAVENOUS q 6 H Mohammad F Buddhism 100 mL/hr at 08/23/19 0549 3.375 g at 08/23/19 0549 - [MAR Hold due to Transfer] clindamycin iv piggyback 600 mg in D5W 50 mL (CLEOCIN) 600 mg INTRAVENOUS q 6 H Mohammad F Buddhism 100 mL/hr at 08/23/19 0549 600 mg [...] August 23, 2019 TIME: 8:32 AM CSN: [id number] Previous Version Tom Prescott DO, DO 08/23/2019 [...] questions or concerns Mon-Fri 6a-5p please page [phone]. After 5pm and on Weekends and Holidays, [...] (Temporal) Resp 18 Ht 177.8 cm (5' 10) Wt 85 kg (187 lb 6.3 oz) SpO2 94% BMI 26.89 kg/m? O2 Therapy: Room Air IANDO: Date 08/22/19 07 - [birth year]/1959 08/23/19 07 - 08/24/19 0659 Shift 1109-3809 5245-1520 2691-3047 24 Hour Total 1754-9895 2455-9282 3011-2256 24 Hour Total INTAKE PO 240 240 PO 240 240 Shift Total 240 240 OUTPUT Urine 500 273 042 2276 Void (ml) 500 626 855 4887 Shift Total 500 645 271 3743 Weight (kg) 85 85 85 85 85 [...] and plan discussed with attending: Dr. Figueroa, station repairer for Dr. Parmar SIGNATURE: Tom Prescott DO PATIENT NAME: Elizabeth Moid DATE: August 23, 2019 TIME: 8:02 AM [...] the assistance of the resident and the salesperson surgical appliances BRIEF OP / PROCEDURE NOTE LOG ID: [id number] Surgery/Procedure Date: 08/23/2019 Incision/Procedure Start Time: 8:42 AM Incision Close/Procedure End Time: 9:04 AM Surgeon(s)/Procedurali st(s) and Lead Laying And Gluing Machine Operator(s): Surgeon(s) and Role: * Gordo Figueroa - [...] After 7pm, please call cross cover pager #[phone] Subjective INTERVAL HPI: Patient seen and examined. Worsening infection and patient went for amputation this morning. No pain currently and about to eat lunch. Family at bedside. Denies chest pain or SOB. MEDICATIONS: Reviewed Objective PHYSICAL EXAM: BP 126/64 Pulse 73 Temp (Src) 97.7 (Oral) Resp 18 Ht 5' 10 (1.78m) Wt 187 lb 6.3 oz (85.0kg) [...] bowel sounds normally heard, no mass palpable BLOCKER AND SEWER- cranial nerves 2 to 12 grossly intact, [...] 08/21/191914 vte non-pharmacologic prophylaxis - none indicated (mo,va) 08/21/191914 activity - mobilize patient ([place]) VTE Prophylaxis: VTE prophylaxis appropriate Disposition: Home with [facility] Plan of care discussed with: Provider, RN, Patient SIGNATURE: Sue Bianchi DO PATIENT NAME: Elizabeth Modi DATE: August 23, 2019 TIME:12:20 PM PAGER/CONTACT #: [phone] Doris Eden MD 08/23/2019 1:21 PM Signed I have reviewed the patient's medical record in detail. Consult note dictated. See orders for Lantus/oral agents. Can use OTC Novolin N at home. Doris Eden MD. Tami Patricio, RN, RN 08/23/2019 3:20 PM Signed CARE MANAGEMENT: ASSESSMENT AND DISCHARGE PLAN SERVICE DATE: August 23, 2019 SERVICE TIME: 3:18 PM PRIMARY CARE PHYSICIAN: No primary care provider on file. Phone: None ADMISSION STATUS: Inpatient Needs Prior to Discharge: OT/PT Evaluation;Discharge Transportation;[facility] Facility;Precertificat ion [place] [facility] [place]/Pipe And Test Supervisor Stated Goals: To have reduction in symptoms;To improve my functional status Health Insurance: [place] Health Issues Impacting Discharge Plan: None Last Discharge Date: N/A Is this Within the Past 30 days? Last discharge within 30 days: No Advance Directive: Current Advance Directive: None Data Entry Technician Attempted to Assist with AD Completion: Yes [...] Mostly I feel financially burdened by my cuj-hm-kgmarj expenses for my prescription medication:: 0 - Agree Somewhat Risk Score: 0 Patient is categorized as: Low risk < 2 Are you interested in bedside delivery of your medications? No Is Patient Psychosocially Complex?: No ASSESSMENT AND PLAN: Medical Needs: Medical Needs: None Psychosocial Needs: Psychosocial Needs: None FREEDOM OF CHOICE EXPLAINED: [place] of Choice Given: Yes Level of Care Discussed: Inpatient Rehab Facility Financial Disclosure Provided: Yes Financial Disclosure Comments: ESR Provider List: (Pt refused list- would like [facility]. ) POTENTIAL TRANSITION PLANS Rehab Facility Spoke with pt at the bedside. 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 Pt states that he has a PCP in [place]. Pt is s/p right foot amp. Anticipate AR needs at d/c. Await PT/OT evals. Pt would like [facility] rehab- referral sent. Pt will need auth and likely transport at d/c. Will follow. SIGNATURE: Tami Patricio RN PATIENT NAME: Elizabeth Modi DATE: August 23, 2019 TIME: 3:18 PM PAGER/CONTACT #: [phone] Paulo Fleming MD 08/23/2019 3:55 PM Addendum [...] (Oral) Resp 18 Ht 177.8 cm (5' 10) Wt 85 kg (187 lb 6.3 oz) [...] labs Paulo Fleming MD Infectious Disease Respiratory [place] Pager: [phone] August 23, 2019 Previous Version KRISTIE CHEEK 08/23/2019 7:37 PM Signed PHARMACY VANCOMYCIN DOSING [...] [place] questions[place] [phone]. Age: [age] year old Allergies: ALLERGIES No Known Allergies Last 3 Encounter Wt Readings: Date: Wt: 08/21/2019 85 kg (187 lb 6.3 oz) Last 1 Encounter Ht Readings: Date: Ht: 08/21/2019 177.8 cm (5' 10) CrCl: 71.4 mL/min Temp (24hrs), Av.4 ?C [...] questions or concerns Mon-Fri 6a-5p please page [phone]. After 5pm and on Weekends and Holidays, please page [phone] if in ICU or [phone] if on RNF. Subjective SUBJECTIVE: Denies leg pain. Feeling better overall. No complaints. Tolerating a diet. Diet: DIET CARBOHYDRATE CONTROLLED Objective OBJECTIVE: Vitals: Temp (24hrs), Av.5 ?C (97.7 ?F), Min:36 ?C (96.8 ?F), Max:36.9 ?C (98.4 ?F) BP 128/58 Pulse 77 Temp 36.9 ?C (98.4 ?F) (Oral) Resp 16 Ht 177.8 cm (5' 10) Wt 85 kg (187 lb 6.3 oz) SpO2 94% BMI 26.89 kg/m? O2 Therapy: Nasal Cannula IANDO: Date 08/23/19699 - 08/24/1965808/24/19699 - 08/25/19 0659 Shift 0156-4072 3678-6508 0414-0821 24 Hour Total 7154-1184 1863-3852 4195-9589 24 Hour Total INTAKE IV 625 625 OR Crystalloid intake (mL) 250 250 Volume (mL) (lactated ringers infusion) 125 125 Volume (mL) (vancomycin iv piggyback 1.25 g in D5W 250 mL (VANCOCIN)) 250 250 Shift Total 625 625 OUTPUT Urine 280 278 2668 Void (ml) 752 106 2551 Blood 50 50 Estimated Blood loss 50 50 Shift Total 490 631 0201 Weight (kg) 85 85 85 85 85 [...] 3 g in NaCl 0.9% 100 mL MB+/ADD-[place] (UNASYN) 3 g INTRAVENOUS q 6 H [...] pharmacy if questions. MARTHA RYAN, PHARMACIST Ext: [phone] Edy Paredes MD 08/24/2019 9:20 AM Signed Edy Paredes MD, MS, FACP, [facility] Division of Infectious [place] [address] [facility] [address] [id number] Office: [phone] INFECTIOUS DISEASE CONSULT PROGRESS NOTE SERVICE DATE: [...] (Oral) Resp 18 Ht 177.8 cm (5' 10) Wt 77.5 kg (170 lb 13.7 oz) [...] DO 08/24/2019 5:16 PM Signed DEPARTMENT OF HOSPITAL MEDICINE PROGRESS NOTE SERVICE DATE: 08/24/2019 SERVICE TIME: 12:40 PM Hospital Medicine/Primary Attending: Sue Bianchi DO NIGHT AND WEEKEND COVERAGE: After 7pm, please call cross cover pager #[phone] Subjective INTERVAL HPI: Patient seen and examined. Feeling much better today. Up and eating lunch. No complaints of chest pain or SOB. MEDICATIONS: Reviewed Objective PHYSICAL EXAM: BP 134/59 Pulse 78 Temp (Src) 98.2 (Temporal) Resp 18 Ht 5' 10 (1.78m) Wt 170 lb 13.7 oz (77.5kg) SpO2 98% BMI 24.52 kg/(m2). O2 Therapy: Room Air Physical Exam Performed Constitutional - Vitals as above, not in acute distress Resp - Clear to auscultate both sides, no wheezes, crackles or rales, no labored breathing CVS- RRR. No murmur, gallop or rub, pulse 2+ GI - NTND, bowel sounds normally heard, no mass palpable BLOCKER AND SEWER- cranial nerves 2 to 12 grossly intact, no focal motor or sensory deficits noted, speech normal Psych- A ANDO x 3, mood normal Skin- R lower extremity dressing intact, wound care notes and images reviewed Lines, Drains, and Airways Line Peripheral 08/21/19 2239 Assessment Left Antecubital 20 Gauge 2 days Peripheral 08/21/19 2240 Assessment Right Antecubital 20 Gauge 2 days [...] 08/21/191914 vte non-pharmacologic prophylaxis - none indicated (mo,va) 08/21/191914 activity - mobilize patient ([place], [place]) VTE Prophylaxis: VTE prophylaxis appropriate Disposition: Home with [facility] Plan of care discussed with: Provider, RN, Patient SIGNATURE: Sue Bianchi DO PATIENT NAME: Elizabeth Modi DATE: August 24, 2019 TIME:12:40 PM PAGER/CONTACT #: [phone] Susan Miner, OTR/L 08/24/2019 1:07 PM Signed Occupational Therapy Evaluation SERVICE DATE: 08/24/2019 SERVICE TIME: 1133 to 1208 ROOM: [place] [address] Recommended Discharge Disposition: Acute Rehab Justification For [...] (ADL);General symptoms and signs-other Interventions Provided: Evaluation;Self Assisted Management (76399) $ Evaluation-Moderate (76051) Billed Units: 1 unit OT Evaluation Moderate [...] occupational performance: thyroid, HTN, DM, claudication Self Assisted Management (02626) Treatment Minutes: 10 1 unit Skilled Intervention(s): [...] lower extremity. 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 Patient agreeable to (more content not included)... Normal [facility] No Panel Information [facility] Vital Signs Date Time Vital Sign Value Performing Clinician Facility 10-16-2024 07:59-0400 Body height 167.[address] Diana Salmeron MD Work Phone: [phone] [place] [address] 10-16-2024 07:59-0400 Body mass index (BMI) [Ratio] 29 kg/m2 Dr. Diana Salmeron MD Work Phone: [phone] [place] [address] 10-16-2024 07:59-0400 Body weight 81.[address] Diana Salmeron MD Work Phone: [phone] [address] 10-16-2024 07:59-0400 Diastolic blood pressure 74 mm[Hg] Dr. Diana Salmeron MD Work Phone: [facility] 10-16-2024 07:59-0400 Heart rate 64 /min Dr. Diana Salmeron MD Work Phone: [facility] 10-16-2024 07:59-0400 Respiratory rate 18 /min Dr. Diana Salmeron MD Work Phone: [facility] 10-16-2024 07:59-0400 Systolic blood pressure 131 mm[Hg] Dr. Diana Salmeron MD Work Phone: [facility] 10-16-2024 00:07-0400 Body temperature 97.8 [degF] Dr. Diana Salmeron MD Work Phone: [facility] 10-16-2024 00:07-0400 Diastolic blood pressure 76 mm[Hg] Dr. Diana Salmeron MD Work Phone: [facility] 10-16-2024 00:07-0400 Heart rate 68 /min Dr. Diana Salmeron MD Work Phone: [facility] 10-16-2024 00:07-0400 Respiratory rate 16 /min Dr. Diana Salmeron MD Work Phone: [facility] 10-16-2024 00:07-0400 SaO2% (BldA) [Mass fraction] 97 % Dr. Diana Salmeron MD Work Phone: [facility] 10-16-2024 00:07-0400 Systolic blood pressure 148 mm[Hg] Dr. Diana Salmeron MD Work Phone: [facility] 10-15-2024 17:47-0400 Body mass index (BMI) [Ratio] 29.9 kg/m2 Dr. Diana Salmeron MD Work Phone: [facility] 10-15-2024 17:47-0400 Body weight [address] Diana Salmeron MD Work Phone: [facility] 10-15-2024 16:00-0400 Body height 167.[address] Diana Salmeron MD Work Phone: [facility] 10-01-2024 13:22-0400 Body height 167.6 cm Nikolai Connor PA-C Work Phone: [facility] Comment on above: After amputations per patient. 10-01-2024 13:22-0400 Body temperature 97.3 [degF] Nikolai Connor PA-C Work Phone: [facility] 10-01-2024 13:22-0400 Diastolic blood pressure 82 mm[Hg] Nikolai Connor PA-C Work Phone: [facility] Comment on above: Mario notified of blood pressure- pat ient aware to let staff where he resides know of his blood pressure. 10-01-2024 13:22-0400 Heart rate 62 /min Nikolai Connor PA-C Work Phone: [facility] 10-01-2024 13:22-0400 Respiratory rate 14 /min Nikolai Connor PA-C Work Phone: [facility] 10-01-2024 13:22-0400 SaO2% (BldA) [Mass fraction] 97 % Nikolai Underwoodoney PA-C Work Phone: [facility] 10-01-2024 13:22-0400 Systolic blood pressure 182 mm[Hg] Nikolai Underwoodoney PA-C Work Phone: [facility] Comment on above: Mario notified of blood pressure- pat ient aware to let staff where he resides know of his blood pressure. 01-11-2023 12:58-0400 Body temperature 97.4 [degF] Dr. Dexter Reyes Work Phone: [facility] 01-11-2023 12:58-0400 Diastolic blood pressure 65 mm[Hg] Dr. Dexter Reyes Work Phone: [facility] 01-11-2023 12:58-0400 Heart rate 66 /min Dr. Dexter Reyes Work Phone: [facility] 01-11-2023 12:58-0400 Respiratory rate 17 /min Dr. Dexter Reyes Work Phone: [facility] 01-11-2023 12:58-0400 Systolic blood pressure 113 mm[Hg] Dr. Dexter Reyes Work Phone: [facility] 12-17-2022 12:00-0400 Body temperature 98.8 [degF] Dr. Dexter Reyes Work Phone: [facility] 12-17-2022 12:00-0400 Diastolic blood pressure 68 mm[Hg] Dr. Dexter Reyes Work Phone: [facility] 12-17-2022 12:00-0400 Heart rate 60 /min Dr. Dexter Reyes Work Phone: [facility] 12-17-2022 12:00-0400 Inhaled oxygen flow rate 2 L/min Dr. Dexter Reyes Work Phone: [facility] 12-17-2022 12:00-0400 Respiratory rate 18 /min Dr. Dexter Reyes Work Phone: [facility] 12-17-2022 12:00-0400 SaO2% (BldA) [Mass fraction] 95 % Dr. Dexter Reyes Work Phone: [facility] 12-17-2022 12:00-0400 Systolic blood pressure 147 mm[Hg] Dr. Dexter Reyes Work Phone: [facility] 12-17-2022 06:00-0400 Body mass index (BMI) [Ratio] 32.6 kg/m2 Dr. Dexter Reyes Work Phone: [facility] 12-17-2022 06:00-0400 Body weight 92.[address] Dexter Reyes Work Phone: [facility] 12-15-2022 20:05-0400 Inhaled oxygen concentration 4 % Dr. Dexter Reyes Work Phone: [facility] 12-15-2022 10:54-0400 Body height 167.[address] Dexter Reyes Work Phone: [facility] 09-01-2022 09:59-0400 Body temperature 97.7 [degF] Shana Delgado MD Work Phone: [facility] 09-01-2022 09:59-0400 Diastolic blood pressure 68 mm[Hg] Shana Delgado MD Work Phone: [facility] 09-01-2022 09:59-0400 Heart rate 66 /min Shana Delgado MD Work Phone: [facility] 09-01-2022 09:59-0400 Systolic blood pressure 135 mm[Hg] Shana Delgado MD Work Phone: [facility] 01-13-2022 13:09-0400 Heart rate 79 /min DR KARL BARRERA [facility] 01-13-2022 11:36-0400 Body temperature 97.88 [degF] DR KARL BARRERA MD [address] 01-13-2022 11:36-0400 Diastolic Blood Pressure NBP [address] KARL BARRERA MD [address] [place] [address] 01-13-2022 11:36-0400 Heart rate 79 /min DR KARL BARRERA MD [address] [place] [address] 01-13-2022 11:36-0400 Mean blood pressure 79 mm[Hg] DR KARL BARRERA MD [address] [place] [address] 01-13-2022 11:36-0400 Reason For Taking VItal Signs DR KARL BARRERA MD [address] [place] [address] 01-13-2022 11:36-0400 Respiratory rate 18 /min DR KARL BARRERA MD [address] [place] [address] 01-13-2022 11:36-0400 Systolic Blood Pressure NBP [address] KARL BARRERA MD [address] [place] [address] 01-13-2022 08:42-0400 Heart rate 81 /min DR KARL BARRERA MD [address] [place] [address] 01-13-2022 08:42-0400 Heart rate 82 /min DR KARL BARRERA MD [address] [place] [address] 01-13-2022 07:06-0400 Body temperature 97.52 [degF] DR KARL BARRERA MD [address] 01-13-2022 07:06-0400 Diastolic Blood Pressure NBP [address] KARL BARRERA MD [address] [place] [address] 01-13-2022 07:06-0400 Mean blood pressure 79 mm[Hg] DR KARL BARRERA MD [address] [place] [address] 01-13-2022 07:06-0400 Reason For Taking VItal Signs DR KARL BARRERA MD [address] [place] [address] 01-13-2022 07:06-0400 Respiratory rate 18 /min DR KARL BARRERA MD [address] [place] [address] 01-13-2022 07:06-0400 Systolic Blood Pressure NBP [address] KARL BARRERA MD [address] [place] [address] 01-13-2022 04:52-0400 Body temperature 97.7 [degF] DR KARL BARRERA MD [address] [place] [address] 01-13-2022 04:52-0400 Diastolic Blood Pressure NBP [address] KARL BARRERA MD [address] [place] [address] 01-13-2022 04:52-0400 Mean blood pressure 83 mm[Hg] DR KARL BARRERA MD [address] [place] [address] 01-13-2022 04:52-0400 Reason For Taking VItal Signs DR KARL BARRERA MD [address] [place] [address] 01-13-2022 04:52-0400 Respiratory rate 18 /min DR KARL BARRERA MD [address] 01-13-2022 04:52-0400 Systolic Blood Pressure NBP [address] KARL BARRERA MD [address] [place] [address] 01-12-2022 16:59-0400 Heart rate 71 /min DR KARL BARRERA MD [address] [place] [address] 01-12-2022 09:02-0400 Heart rate 71 /min DR KARL BARRERA MD [address] [place] [address] 01-11-2022 04:44-0400 Diastolic blood pressure 79 mm[Hg] DR KARL BARRERA MD [address] [place] [address] 01-11-2022 04:44-0400 Mean blood pressure 110 mm[Hg] DR KARL BARRERA MD [address] 01-11-2022 04:44-0400 Systolic blood pressure 171 mm[Hg] DR KARL BARRERA MD [address] [place] [address] 01-11-2022 04:02-0400 Diastolic blood pressure 71 mm[Hg] DR KARL BARRERA MD [address] [place] [address] 01-11-2022 04:02-0400 Mean blood pressure 105 mm[Hg] DR KARL BARRERA MD [address] [place] [address] 01-11-2022 04:02-0400 Systolic blood pressure 173 mm[Hg] DR KARL BARRERA MD [address] [place] [address] 01-10-2022 02:13-0400 Diastolic blood pressure 73 mm[Hg] DR KARL BARRERA MD [address] [place] [address] 01-10-2022 02:13-0400 Systolic blood pressure 179 mm[Hg] DR KARL BARRERA MD [address] [place] [address] 01-10-2022 01:27-0400 Signs/Symptoms Transfusion Reaction DR KARL BARRERA MD [address] [place] [address] 01-10-2022 01:27-0400 Transfusion Documentation Ended/Paper DR KARL BARRERA MD [address] [place] [address] 01-10-2022 00:56-0400 Signs/Symptoms Transfusion Reaction DR KARL BARRERA MD [address] [place] [address] 01-10-2022 00:27-0400 Heart rate 63 /min DR KARL BARRERA MD [address] [place] [address] 01-10-2022 00:11-0400 Signs/Symptoms Transfusion Reaction No DR KARL BARRERA MD [address] [place] [address] 01-10-2022 00:11-0400 Heart rate 64 /min DR KARL BARRERA MD [address] [place] [address] 01-09-2022 22:36-0400 Transfusion Documentation Started/Paper DR KARL BARRERA MD [address] [place] [address] 01-06-2022 09:26-0400 Diastolic blood pressure 45 mm[Hg] DR KARL BARRERA MD [address] [place] [address] 01-06-2022 09:26-0400 Mean blood pressure 64 mm[Hg] DR KARL BARRERA MD [address] [place] [address] 01-06-2022 09:26-0400 Systolic blood pressure 103 mm[Hg] DR KARL BARRERA MD [address] [place] [address] 01-06-2022 08:38-0400 Diastolic blood pressure 50 mm[Hg] DR KARL BARRERA MD [address] [place] [address] 01-06-2022 08:38-0400 Mean blood pressure 69 mm[Hg] DR KARL BARRERA MD [address] [place] [address] 01-06-2022 08:38-0400 Systolic blood pressure 107 mm[Hg] DR KARL BARRERA MD [address] [place] [address] 01-06-2022 07:40-0400 Diastolic blood pressure 45 mm[Hg] DR KARL BARRERA MD [address] [place] [address] 01-06-2022 07:40-0400 Mean blood pressure 66 mm[Hg] DR KARL BARRERA MD [address] [place] [address] 01-06-2022 07:40-0400 Systolic blood pressure 113 mm[Hg] DR KARL BARRERA MD [address] [place] [address] 01-05-2022 20:12-0400 SaO2% (BldA) [Mass fraction] 98.4 % DR KARL BARRERA MD [facility] 01-05-2022 18:47-0400 SaO2% (BldA) [Mass fraction] 97.6 % DR KARL BARRERA MD [facility] 01-05-2022 17:13-0400 SaO2% (BldA) [Mass fraction] 97.7 % DR KARL BARRERA MD [facility] 01-05-2022 12:30-0400 Body temperature 98.98 [degF] DR KARL BARRERA MD [address] [place] [address] 01-05-2022 12:25-0400 Body temperature 99 [degF] DR KARL BARRERA MD [address] [place] [address] 01-05-2022 12:20-0400 Body temperature 99.07 [degF] DR KARL BARRERA MD [address] [place] [address] 01-05-2022 12:20-0400 Body temperature 98.51 [degF] DR KARL BARRERA MD [address] [place] [address] 01-05-2022 12:15-0400 Body temperature 98.6 [degF] DR KARL BARRERA MD [address] [place] [address] 01-05-2022 12:10-0400 Body temperature 98.67 [degF] DR KARL BARRERA MD [address] 01-05-2022 11:54-0400 SaO2% (BldA) [Mass fraction] 98.2 % DR KARL BARRERA MD [facility] 01-05-2022 11:19-0400 SaO2% (BldA) [Mass fraction] 99.4 % DR KARL BARRERA MD [facility] 01-05-2022 10:44-0400 SaO2% (BldA) [Mass fraction] 99.4 % DR KARL BARRERA MD [facility] 01-03-2022 23:07-0400 Mean blood pressure 83 mm[Hg] DR KARL BARRERA MD [address] [place] [address] 01-03-2022 12:05-0400 Body height [address] [facility] 01-03-2022 12:05-0400 Body weight 81.[address] KARL BARRERA MD [facility] 01-03-2022 12:05-0400 Body weight 35.28 kg/m2 DR KARL BARRERA MD [facility] 01-03-2022 04:54-0400 Body weight 81.[address] KARL BARRERA MD [facility] 12-31-2021 03:38-0400 Heart rate 80 /min DR KARL BARRERA MD [facility] 12-30-2021 05:08-0400 Body weight 103.[address] KARL BARRERA MD [facility] 02-09-2021 12:00-0400 Diastolic blood pressure 53 mm[Hg] Ammy Vicente MD Work Phone: [facility] Work Phone: 02-09-2021 12:00-0400 Heart rate 51 /min Ammy Vicente MD Work Phone: [facility] Work Phone: 02-09-2021 12:00-0400 SaO2% (BldA) [Mass fraction] 91 % Ammy Vicente MD Work Phone: [facility] Work Phone: 02-09-2021 12:00-0400 Systolic blood pressure 110 mm[Hg] Ammy Vicente MD Work Phone: [facility] Work Phone: 02-09-2021 11:45-0400 Respiratory rate 16 /min Ammy Vicente MD Work Phone: [facility] Work Phone: 02-09-2021 10:58-0400 Body temperature 98.1 [degF] Ammy Vicente MD Work Phone: [facility] Work Phone: 02-09-2021 08:21-0400 Body height 142.2 cm Ammy Vicente MD Work Phone: [facility] Work Phone: 02-09-2021 08:21-0400 Body mass index (BMI) [Ratio] 36.77 kg/m2 Ammy Vicente MD Work Phone: [facility] Work Phone: 02-09-2021 08:21-0400 Body weight 74.39 kg Ammy Vicente MD Work Phone: [facility] Work Phone: Encounters Encounter Date Encounter Type Care Provider Facility Start: 04-23-2025 ambulatory Victor M matute OLS Facility:[facility] Start: 04-17-2025 End: 04-17-2025 ambulatory Diana Salmeron Facility:[facility] Start: 03-19-2025 ambulatory Efradha matute OLS Facility:[facility] Start: 02-24-2025 End: 02-24-2025 ambulatory Christina Whipple NP Facility:[facility] Start: 02-19-2025 ambulatory Efradha matute OLS Facility:[facility] Start: 02-11-2025 ambulatory Efradha matute OLS Facility:[facility] Start: 02-11-2025 Registered Referred Victor M Rojas MD [facility] Start: 02-04-2025 ambulatory Victor M matute OLS Facility:[facility] Start: 02-04-2025 Registered Referred Victor M Rojas MD [facility] Start: 01-28-2025 End: 01-28-[address] Victor M Rojas MD -[facility] Work Phone: Start: 01-28-2025 End: 01-28-[address] Diana Salmeron MD Work Phone: -[facility] Start: 01-28-2025 [facility] Start: 01-22-2025 ambulatory Victor M matute OLS Facility:[facility] Start: 01-22-2025 [facility] Start: 01-20-2025 ambulatory ERIC Stephany Headleyel [facility] Start: 01-20-2025 Registered Referred Victor M Rojas MD [facility] Start: 01-14-2025 End: 01-14-2025 ambulatory GAYLA CLINE Facility:[id number] Start: 01-14-2025 End: 01-14-2025 Patient encounter procedure Gayla Cline MD Work Phone: Urology Comment on above: Gross hematuria (Margarita dariel Dx); Left renal mass Start: 12-24-2024 End: 12-24-[address] Diana Salmeron MD Work Phone: [facility] Start: 12-24-2024 End: 12-24-2024 Patient encounter procedure Christina Whipple [facility] Work Phone: Start: 12-18-2024 ambulatory Victor M DAVID Facility:[facility] Start: 12-18-2024 Registered Referred Victor M Rojas MD [facility] Start: 12-03-2024 End: 12-03-[address] Diana Salmeron MD Work Phone: [facility] Start: 12-03-2024 End: 12-03-[address] Victor M Rojas MD [facility] Work Phone: Start: 11-20-2024 ambulatory Victor M DAVID Facility:[facility] Start: 11-20-2024 Registered Referred Victor M Rojas MD [facility] Start: 11-07-2024 End: 11-07-[address] Diana Salmeron MD Work Phone: [facility] Start: 11-07-2024 End: 11-07-2024 [facility]: 11-07-[facility]24 [facility] Start: 11-07-2024 End: 11-07-2024 ambulatory Christina DAVID Facility:[facility] Start: 10-23-2024 End: 10-23-[address] Diana Salmeron MD Work Phone: [facility] Work Phone: Start: 10-23-2024 End: 10-23-2024 Departed Referred Victor M Rojas MD [facility] Start: 10-23-2024 End: 10-23-2024 ambulatory Victor M DAVID Facility:[facility] Start: 10-16-2024 End: 10-16-2024 Patient encounter procedure Lauren GARLAND -[facility] Work Phone: Start: 10-16-2024 End: 10-16-2024 [facility] Start: 10-15-2024 End: 10-16-2024 Emergency department patient visit Dr. Diana Salmeron MD Work Phone: -Emergency Department Work Phone: Start: 10-04-2024 End: 12-04-2024 Follow-up encounter Nikolai Connor PA-C Work Phone: Urology Start: 10-01-2024 End: 10-04-2024 Telephone encounter Nikolai Connor PA-C Work Phone: Urology Start: 10-01-2024 End: 10-01-2024 ambulatory NIKOLAI CONNOR Facility:[facility] Start: 10-01-2024 End: 10-01-2024 Patient encounter procedure Nikolai GARLAND-Jamar Work Phone: Urology Comment on above: Gross hematuria (Margarita dariel Dx); Screening for genitourinary condition Start: 09-24-2024 End: 09-24-[address] Diana Salmeron MD Work Phone: [facility] Work Phone: Start: 09-24-2024 End: 09-24-[address] Victor M Rojas MD -[facility] Work Phone: Start: 09-18-2024 End: 09-18-[address] Diana Salmeron MD Work Phone: [facility] Work Phone: Start: 09-18-2024 End: 09-18-2024 Departed Referred Victor M Rojas MD -[facility] Start: 09-18-2024 Registered Referred Victor M Rojas MD -[facility] Start: 09-18-2024 End: 09-18-2024 ambulatory Victor M DAVID Facility:[facility] Start: 09-06-2024 End: 09-06-2024 Patient encounter procedure Kacie GARLAND -[facility] Work Phone: Start: 09-06-2024 End: 09-06-2024 ambulatory [facility] Facility:[facility] Start: 09-05-2024 End: 09-05-2024 ambulatory Christina Whipple [employer] Facility:[facility] Start: 09-05-2024 End: 09-05-2024 Patient encounter procedure Christina Whipple [employer]- -[facility] Work Phone: Start: 09-03-2024 End: 09-03-2024 ambulatory Christina Whipple [employer] Facility:[facility] Start: 09-03-2024 End: 09-03-2024 Patient encounter procedure Christina Whipple [employer]- -[facility] Work Phone: Start: 08-21-2024 End: 08-21-[address] Diana Salmeron MD Work Phone: [facility] Work Phone: Start: 08-21-2024 End: 08-21-2024 Departed Referred Victor M Rojas MD [facility] Start: 08-21-2024 End: 08-21-2024 [facility] Start: 08-01-2024 ambulatory [facility] Facility: [facility] Start: 08-01-2024 Registered Referred Victor M Rojas MD -[facility] Start: 07-30-2024 ambulatory Butros Latouf Facility: [facility] Start: 07-24-2024 ambulatory Butros Latouf Facility: [facility] Start: 07-24-2024 Registered Referred Victor M Rojas MD -[facility] Start: 07-23-2024 End: 07-23-2024 ambulatory Victor M Rojas Facility:[facility] Start: 07-23-2024 End: 07-23-[address] Victor M Rojas MD -[facility] Work Phone: Start: 07-05-2024 End: 07-05-2024 ambulatory Butros Latouf Facility:[facility] Start: 07-05-2024 End: 07-05-2024 Patient encounter procedure Christina RIVERA -[facility] Work Phone: Start: 07-02-2024 End: 07-02-2024 ambulatory Nikolai Connor PA-C Work Phone: Urology Comment on above: CT urogram results Start: 07-02-2024 End: 07-02-2024 E-mail encounter from caregiver Nikolai Connor PA-C Work Phone: Urology Start: 06-28-2024 End: 06-28-2024 ambulatory NIKOLAI CONNOR Facility:[facility] Start: 06-28-2024 End: 06-28-2024 Subsequent hospital visit by physician [facility] ([facility]-Stat) Work Phone: Cat Scan Comment on above: Gross hematuria [R31 .0] Start: 06-27-2024 ambulatory Butros Latouf Facility: [facility] Start: 06-27-2024 Registered Referred Victor M Rojas MD -[facility] Start: 06-21-2024 End: 07-09-2024 Telephone encounter Nikolai Connor PA-C Work Phone: Urology Comment on above: Results Start: 06-20-2024 ambulatory Butros Latouf Facility: [facility] Start: 06-20-2024 Registered Referred Victor M Rojas MD -[facility] Start: 06-18-2024 End: 06-18-2024 ambulatory NIKOLAI CONNOR Facility:[facility] Start: 06-18-2024 End: 06-18-2024 Patient encounter procedure Nikolai Connor PA-C Work Phone: Urology Comment on above: Screening for genito urinary condition (Primary Dx); Gross hematuria; Left renal mass Start: 06-17-2024 End: 06-17-2024 Patient encounter procedure Christina RIVERA -[facility] Work Phone: Start: 06-17-2024 End: 06-17-2024 ambulatory Butros Latouf Facility:[facility] Start: 06-17-2024 Registered Referred Victor M Rojas MD -[facility] Start: 06-06-2024 End: 06-06-2024 Patient encounter procedure Kacie GARLAND -[facility] Work Phone: Start: 06-06-2024 End: 06-06-2024 ambulatory Butros Latouf Facility:[facility] Start: 05-21-2024 End: 05-22-2024 ambulatory Victor M DAVID Facility:[facility] Start: 05-08-2024 End: 05-08-2024 ambulatory Butros Latouf Facility:[facility] Start: 01-08-2024 End: 01-08-[address] KENNY CHUA MD Facility:[facility] Start: 04-13-2023 Emergency department patient visit VALENTIN PHAN [facility] Start: 03-27-2023 Telephone encounter Urology (History ) Urology Start: 02-08-2023 End: 02-08-[address] Dexter Reyes Work Phone: [facility] Work Phone: Start: 02-08-2023 End: 02-08-[address] Dexter Reyes Work Phone: [facility] Work Phone: Start: 01-30-2023 End: 01-30-[address] Dexter Reyes Work Phone: [facility] Work Phone: Start: 01-30-2023 End: 01-30-[address] Dexter Reyes Work Phone: [facility], [facility] Work Phone: Start: 01-11-2023 End: 01-11-[address] Dexter Reyes Work Phone: [facility] Work Phone: Start: 12-17-2022 Non-patient / Non-visit Dr. Robel Reyes Work Phone: [facility] Work Phone: Start: 12-16-2022 Non-patient / Non-visit Dr. Robel Reyes Work Phone: [facility] Start: 12-16-2022 Non-patient / Non-visit Dr. Robel Reyes Work Phone: [facility] Work Phone: Start: 12-15-2022 Non-patient / Non-visit Dr. Robel Reyes Work Phone: [facility] Start: 12-15-2022 Non-patient / Non-visit Dr. Robel Reyes Work Phone: [facility] Start: 12-15-2022 Non-patient / Non-visit Dr. Robel Reyes Work Phone: [facility] Work Phone: Start: 12-14-2022 End: 12-17-2022 Evaluation and management of inpatient Dr. Dexter Reyes [facility] Work Phone: Start: 12-14-2022 End: 01-08-2024 Pre-admission assessment DR KENNY CHUA MD [facility] Start: 12-14-2022 Non-patient / Non-visit Dr. Robel Reyes Work Phone: [facility] Work Phone: Start: 09-06-2022 Telephone encounter Quanajy Amosmatt raygoza DO Work Phone: Rheumatology Comment on above: Patient Update Start: 09-01-2022 End: 09-01-2022 Patient encounter procedure Terence Phelps MD Work Phone: Ophthalmology Comment on above: Optic nerve edema (P rimary Dx) Vision changes (Prim anish Dx); Photosensitivity; PVD (peripheral vascular disease) ([facility]); Type 2 diabetes mellitus with other specified complication, without long-term current use of insulin ([facility]); retirement current use of systemic steroids; Vitamin D deficiency Start: 01-17-2022 End: 01-17-2022 Patient encounter procedure HUNTER FALCON CLINICAL SPECIALIST-CLINIC CHARGE NURSE [facility] Start: 12-30-2021 End: 01-13-2022 Evaluation and management of inpatient DR KARL BARRERA MD [facility] Start: 11-23-2021 End: 11-23-2021 Subsequent hospital visit by physician Fer Weinstein MD Work Phone: [facility] Comment on above: CHRONIC HEADACHES Start: 02-09-2021 End: 02-09-2021 Subsequent hospital visit by physician Ammy Vicente MD Work Phone: [facility] General Surgery Comment on above: Arrived Start: 11-13-2020 ambulatory [facility] Facility:[facility] Start: 09-09-2020 ambulatory [facility] Facility:[facility] Procedures Date Procedure Procedure Detail Performing Clinician Start: 02-11-[address] inorganic phosphate measurement Dr. Diana Salmreon MD Work Phone: Start: 02-04-2025 Serum inorganic [...] on above: Performed By: #### MAG #### [facility] [address] [address] Start: 06-19-[address] KARL BARRERA MD [...] DTaP,Tdap,Td Vaccine (2 - Td or Tdap) [facility] Start: 02-17-2025 Influenza vaccination [facility] Start: 01-14-2025 End: 01-14-2025 Patient encounter procedure 01/14/2025 9:15 AM EDT Office Visit Urology [address] [place] [id number] Gayla Cline MD [address] [place] [address]Mooney LUCINA referral for cysto Urology Comment on above: WILL BE ON Dr.Mooney LUCINA referral for c ysto Start: 11-08-2024 End: 11-08-2024 Patient encounter procedure 11/08/2024 8:15 AM EDT Office Visit Urology [address] [place] [id number] Gayla Cline MD [address] [place] [address] referral for cysto Urology Comment on above: referral for cysto Start: 10-15-2024 End: 10-15-2024 [facility] Start: 07-02-2024 Cystourethroscopy CYSTO.PANENDO Procedures Routine Gross hematuria Expected: 07/02/2024 (Approximate) [facility] Comment on above: Expected: 07/02/2024 (Approximate) Start: 06-28-2024 End: 06-28-2024 Patient encounter procedure 06/28/2024 1:20 PM EST Appointment Cat Scan [address] [place] [address] Gross hematuria [R31.0] Cat Scan Comment on above: Gross hematuria [R31.0] Start: 06-25-2024 End: 09-24-2024 CREATININE BLD CREATININE BLD Lab Routine Screening for genitourinary condition Gross hematuria Expected: 06/25/2024 (Approximate), Expires: 09/24/2024 [facility] Comment on above: Expected: 06/25/2024 (Approximate), Expi res: 09/24/2024 Start: 06-25-2024 End: 07-19-2025 CT Kidney WO and W contrast IV CT UROGRAM WO/W IVCON Radiology Routine Gross hematuria Expected: 06/25/2024, Expires: 07/19/2025 [facility] Comment on above: Expected: 06/25/2024, Expires: Start: 06-19-2024 Advance Directive Discussion Advance Directive Discussion [facility] Start: 06-19-2024 Medicare Advantage Annual Wellness Visit Medicare Advantage Annual Wellness Visit [facility] Start: 02-18-2024 Covid-19 Vaccine ( season) Covid-19 Vaccine ( season) [facility] Start: 02-18-2024 Influenza vaccination Influenza Vaccine (#1) [facility] Start: 09-02-2023 Glaucoma screening Dilated Retinal Exam [facility] Start: 09-02-2023 Hepatitis C antibody, confirmatory test DILATED RETINAL EXAM [facility] Start: 08-13-2023 Hemoglobin A1c measurement HbA1C [facility] Start: 08-13-2023 Hemoglobin A1c/Hemoglobin.total in Blood HbA1C [facility] Start: 06-19-2023 Advance Directive Discussion Advance Directive Discussion [facility] Start: 02-17-2023 Influenza vaccination Influenza Vaccine (#1) [facility] Start: 02-15-2023 Hepatitis B screening URINE ALBUMIN:CREATININE RATIO [facility] Start: 12-17-2022 Patient discharge [facility] Start: 12-16-2022 Dietary regime [facility] Start: 12-16-2022 Catheterization of vein [facility] Start: 12-16-2022 Vital signs measurements [facility] Start: 12-15-2022 [facility] Start: 12-15-2022 Consultation [facility] Start: 12-14-2022 Admission procedure [facility] Start: 12-14-2022 Wound care [facility] Start: 12-14-2022 Consultation for treatment [facility] Start: 12-14-2022 Catheterization of vein [facility] Start: 12-14-2022 Following clinical pathway protocol [facility] Start: 12-14-2022 Admission procedure [facility] Start: 12-14-2022 Assessment of risk of venous thromboembolism [facility] Start: 12-14-2022 Care regimes management [facility] Start: 12-14-2022 Insertion of catheter into peripheral vein [facility] Start: 12-14-2022 Providing care according to standard [facility] Start: 12-14-2022 Provision of activity privileges [facility] Start: 12-14-2022 Fall prevention [facility] Start: 12-14-2022 Introduction of urinary catheter [facility] Start: 12-14-2022 Oxygen therapy [facility] Start: 12-14-2022 Referral to occupational therapist [facility] Start: 12-14-2022 Referral to service [facility] Start: 12-14-2022 Measuring intake and output [facility] Start: 12-14-2022 Referral to gastroenterology service [facility] Start: 12-14-2022 Referral to general surgeon [facility] Start: 12-14-2022 Inhalation therapy procedure [facility] Start: 12-14-2022 Patient referral to dietitian [facility] Start: 12-14-2022 End: 12-14-2022 [facility] Start: 10-11-2022 Hemoglobin A1c/Hemoglobin.total in Blood HBA1C [facility] Start: 08-07-2022 Covid-19 Vaccine (6 - Moderna series) Covid-19 Vaccine (6 - Moderna series) [facility] Start: 06-19-2022 ADVANCE DIRECTIVE DISCUSSION ADVANCE DIRECTIVE DISCUSSION [facility] Start: 06-19-2022 DEPRESSION ASSESSMENT DEPRESSION ASSESSMENT [facility] Start: 02-17-2022 Influenza vaccination INFLUENZA (Season Ended) [facility] Start: 06-19-2021 ADVANCE DIRECTIVE DISCUSSION ADVANCE DIRECTIVE DISCUSSION [facility] Start: 03-17-2021 End: 03-17-2021 Patient encounter procedure 03/17/2021 Office Visit Ophthalmology Ammy Vicente MD [address] [place], [place] [id number] [facility] Ophthalmology Start: 02-17-2021 Influenza vaccination Flu vaccine (#1) [facility] Work Phone: Start: 02-17-2021 End: 02-17-2021 Patient encounter procedure 02/17/2021 Office Visit Ophthalmology Ammy Vicente MD [address] [place] [address] [phone] [facility] Ophthalmology Start: 02-10-2021 End: 02-10-2021 Patient encounter procedure 02/10/2021 Office Visit Ophthalmology Ammy Vicente MD [address] [place], [place] [id number] [facility] Ophthalmology Start: 08-15-2020 Hemoglobin A1c/Hemoglobin.total in Blood HBA1C [facility] Start: 2016 RSV Vaccine (1 - 1-dose 75+ series) RSV Vaccine (1 - 1-dose 75+ series) [facility] Start: 2006 Pneumococcal 65+ years Vaccine (1 of 1 - PPSV23) Pneumococcal 65+ years Vaccine (1 of 1 - PPSV23) [facility] Work Phone: Start: 2001 Hepatitis B Vaccine (1 of 3 - Risk 3-dose series) Hepatitis B Vaccine (1 of 3 - Risk 3-dose series) [facility] Start: 1991 Shingles Vaccine (1 of 2) Shingles Vaccine (1 of 2) [facility] Work Phone: Start: 1991 SHINGRIX VACCINE (1 of 2) SHINGRIX VACCINE (1 of 2) [facility] Start: 1960 DTaP/Tdap/Td vaccine (1 - Tdap) DTaP/Tdap/Td vaccine (1 - Tdap) [facility] Work Phone: Start: 1960 Pneumococcal Vaccine: 50+ (1 of 2 - PCV) Pneumococcal Vaccine: 50+ (1 of 2 - PCV) [facility] Start: 1960 Urine microalbumin profile [facility] Start: 1959 ANNUAL PCP TEAM CHRONIC DISEASE VISIT ANNUAL PCP TEAM CHRONIC DISEASE VISIT [facility] Start: 1959 Anxiety Screening Anxiety Screening [facility] Start: 1959 BP CONTROLLED (<130/80) BP CONTROLLED (<130/80) [facility] Start: 1959 Depression Screening Depression Screening [facility] Start: 1959 Hepatitis B surface antibody level LDL CHOLESTEROL [facility] Start: 1953 Adult depression screening assessment DEPRESSION SCREENING [facility] Start: 1953 COVID-19 Vaccine (1) COVID-19 Vaccine (1) [facility] Work Phone: Start: 1951 3 comp foot exam completed [facility] Start: 1951 Diabetic foot examination Diabetic Foot Exam [facility] Start: 1951 Hepatitis B screening URINE ALBUMIN:CREATININE RATIO [facility] Start: 1951 Hepatitis C antibody, confirmatory test DILATED RETINAL EXAM [facility] Start: 1951 Lipid panel Lipid screen [facility] Work Phone: Start: 1947 Pneumococcal Vaccine: 65+ (1 - PCV) Pneumococcal Vaccine: 65+ (1 - PCV) [facility] Start: 1947 PNEUMOCOCCAL: 65+ (1 - PCV) PNEUMOCOCCAL: 65+ (1 - PCV) [facility] Start: 1946 COVID-19 VACCINE (#1) COVID-19 VACCINE (#1) [facility] Start: 1941 Creatinine measurement Creatinine monitoring [facility] Work Phone: Start: 1941 Hepatitis C screening Hepatitis C screen [facility] Work Phone: Start: 1941 Potassium monitoring Potassium monitoring [facility] Work Phone: Start: 1941 Thyroid stimulating hormone measurement TSH testing [facility] Work Phone: Bacteria identified in Urine by Culture [facility] Comment on above: Ordered: 06/18/2024 Bacteria identified in Urine by Culture BACTERIAL CULTURE, URINE Microbiology Routine Gross hematuria 10/01/2024 3:36 PM EDT [facility] Blood glucose - POCT [facility] Work Phone: Comment on above: As Needed until discontinued starting End: 02-09-2021 Creatinine [Mass/volume] in Serum or Plasma Creatinine, serum Lab STAT One Time for 1 Occurrences starting 02/09/2021 until 02/09/2021 [facility] Work Phone: Comment on above: One Time for 1 Occurrences starting 01/18 until 02/09/2021 CT Kidney WO and W contrast IV CT UROGRAM WO/W IVCON Radiology Routine Gross hematuria 06/28/2024 2:26 PM EST [facility] Work Phone: End: 11-03-2025 CT Kidney WO and W contrast IV CT UROGRAM WO/W IVCON Radiology Routine Gross hematuria 1 Occurrences starting 10/04/2024 until 11/03/2025 [facility] Work Phone: Comment on above: 1 Occurrences starting 10/04/2024 until 11/03/2025 Cystourethroscopy CYSTO.PANENDO Procedures Routine Gross hematuria Ordered: 10/01/2024 [facility] Comment on above: Ordered: 10/01/2024 CYTOLOGY NON-FINISHER HAND [facility] Comment on above: Ordered: 06/18/2024 End: 02-09-2021 Intermittent pulse oximetry Pulse Oximetry Spot Check Respiratory Care Routine One Time for 1 Occurrences starting 02/09/2021 until 02/09/2021 [facility] Work Phone: Comment on above: One Time for 1 Occurrences starting 01/18 until 02/09/2021 Nasal Cannula Oxygen Nasal Cannu la Oxygen Respiratory Care Routine As Needed until discontinued starting 02/09/2021 [facility] Work Phone: Comment on above: As Needed until discontinued starting Nonrebreather mask oxygen Nonreb reather mask oxygen Respiratory Care Routine As Needed until discontinued starting 02/09/2021 [facility] Work Phone: Comment on above: As Needed until discontinued starting Oxygen therapy [[facility]] [facility] Work Phone: Comment on above: Daily until discontinued starting 2020 As Needed until disc ontinued starting 02/09/2021 Patient Education ED Eye Contusi on ED Head Injury (Adult) ED Skin Tear (Skin Avulsion) [facility] Work Phone: Patient referral [facility] Work Phone: POST VOID RESIDUAL POST VOID RES IDUAL Procedures Routine Gross hematuria Screening for genitourinary condition Ordered: 10/01/2024 [facility] Work Phone: Comment on above: Ordered: 10/01/2024 End: 02-09-2021 Potassium w/ Reflex to Magnesium Potassium w/ Reflex to Magnesium Lab Routine One Time for 1 Occurrences starting 02/09/2021 until 02/09/2021 [facility] Work Phone: Comment on above: One Time for 1 Occurrences starting 01/18 until 02/09/2021 End: 02-09-2021 , urine POCT , urine POCT Point of Care Testing Routine One Time for 1 Occurrences starting 02/09/2021 until 02/09/2021 [facility] Work Phone: Comment on above: One Time for 1 Occurrences starting 01/18 until 02/09/2021 End: 02-09-2021 Protime-INR Protime-INR Lab STAT One Time for 1 Occurrences starting 02/09/2021 until 02/09/2021 [facility] Work Phone: Comment on above: One Time for 1 Occurrences starting 01/18 until 02/09/2021 Spirometry panel Incentive arthur metry Respiratory Care Routine Q1H PRN until discontinued starting 02/09/2021 [facility] Work Phone: Comment on above: Q1H PRN until discontinued starting 01/18 UA DIP, URINE (POC) UA DIP, URIN E (POC) Lab Routine Screening for genitourinary condition Ordered: 06/18/2024 [facility] Work Phone: Comment on above: Ordered: 06/18/2024 Immunizations Immunization Date Immunization Notes Care Provider Fa cility 10-15-2024 tetanus toxoid, reduced diphtheria toxoid, and acellular pertussis vaccine, adsorbed Dr. Diana Salmeron MD Work Phone: [facility] 03-19-2022 influenza virus vaccine, unspecified formulation Urology (History) [facility] 10-25-2021 Covid (Pfizer) Dr. Dexter Reyes Work Phone: [facility] 05-21-2021 influenza virus vaccine, unspecified formulation DR KARL BARRERA MD [facility] 05-21-2021 SARS-CoV-2 (COVID-19 ) mRNA-[address] KALR BARRERA MD [facility] 03-10-2021 influenza virus vaccine, unspecified formulation DR KARL BARRERA MD [facility] 10-13-2020 SARS-CoV-2 (COVID-19 ) mRNA-[address] KARL BARRERA MD [facility] Comment on above: Result Comment: 2021: TPV3 09-15-2020 SARS-CoV-2 (COVID-19 ) mRNA-[address] KARL BARRERA MD [facility] Comment on above: Result Comment: 2021: TPV3 03-22-2020 influenza virus vaccine, unspecified formulation DR KARL BARRERA MD [facility] 02-18-2020 influenza virus vaccine, unspecified formulation DR KARL BARRERA MD [facility] 03-18-2019 influenza, injectabl e, quadrivalent, preservative free Dr. Diana Salmeron MD Work Phone: [facility] 03-18-2019 influenza, seasonal, injectable Dr. Dexter Reyes Work Phone: [facility] 03-04-2019 influenza virus vaccine, unspecified formulation DR KARL BARRERA MD [facility] 02-22-2017 influenza virus vaccine, unspecified formulation DR KARL BARRERA MD [facility] Payers Date Payer Category Payer Medicare (Managed Care) [facility] MEDICARE [id number] 2024 Self-pay [id number] 2020 Medicare [id number] 2019 Private Health Insurance [id number]. [id number] 2019 Medicaid [id number]. [id number] 2019 Medicaid [id number] 2015 Medicare MMO MEDICARE [id number] 2006 Medicare [id number]. [id number] 2006 Medicare [id number] 1941 Unknown [id number] 2.16.840.1.926333.3.579.2. 594 1941 Unknown [id number] 2.16.840.1.243248.3.579.2. 594 1941 Unknown [id number] 2.16.840.1.681319.3.579.2. 594 1941 Unknown [id number] 2..840.1.694618.3.579.2. 627 1941 Unknown [id number] 2.16840.1.586697.3.579.2. 651 Medicare [id number] Unknown [id number] 2.16.840.1.019348.3.579.2. 462 Unknown [id number] 2.16.840.1.181169.3.579.2. 462 Unknown [id number] 2.16.840.1.958370.3.579.2. 462 Unknown [id number] 2.16.840.1.834568.3.579.2. 462 Unknown [id number] 2.16.840.1.917345.3.579.2. 462 Unknown [id number] 2.16.840.1.703968.3.579.2. 462 Unknown [id number] 2.16.840.1.140088.3.579.2. 462 Unknown [id number] 2.16.840.1.859759.3.579.2. 462 Unknown [id number] 2.16.840.1.056083.3.579.2. 462 Unknown [id number] 2.16.840.1.125651.3.579.2. 462 Unknown [id number] 2.16.840.1.368041.3.579.2. 462 Unknown [id number] 2.16.840.1.862449.3.579.2. 462 Unknown [id number] 2.16.840.1.021648.3.579.2. 462 Unknown [id number] 2..840.1.715049.3.579.2. 462 Unknown [id number] 2.840.1.318600.3.579.2. 462 Unknown [id number] 2..840.1.705777.3.579.2. 462 Unknown [id number] 2.840.1.281992.3.579.2. 462 Unknown [id number] 2.840.1.546074.3.579.2. 462 Unknown [id number] 2.840.1.929088.3.579.2. 462 Unknown [id number] 2.840.1.303415.3.579.2. 462 Unknown [id number] 2.840.1.515434.3.579.2. 462 Unknown [id number] 2.840.1.874336.3.579.2. 462 Unknown [id number] 2..840.1.888269.3.579.2. 462 Unknown [id number] 2.16.840.1.960411.3.579.2. 462 Unknown [id number] 2.16.840.1.905045.3.579.2. 462 Unknown [id number] 2.16.840.1.709757.3.579.2. 462 Unknown [id number] 2.16840.1.504303.3.579.2. 462 Unknown [id number] 2.16.840.1.407345.3.579.2. 462 Unknown [id number] 2.16.840.1.566878.3.579.2. 462 Unknown [id number] 2.16.840.1.916893.3.579.2. 462 Unknown [id number] 2.16.840.1.440603.3.579.2. 462 Unknown [id number] 2.16.840.1.814254.3.579.2. 462 Unknown [id number] 2.16.840.1.287163.3.579.2. 462 Unknown [id number] 2.16.840.1.402065.3.579.2. 462 Unknown [id number] 2.16.840.1.928572.3.579.2. 462 Unknown [id number] 2.16.840.1.892857.3.579.2. 462 Unknown [id number] 2.16.840.1.326727.3.579.2. 462 Unknown [id number] 2.16.840.1.981079.3.579.2. 462 Unknown [id number] 2.16.840.1.596185.3.579.2. 462 Social History Date Type Detail Facility Start: 02-09-2021 End: 10-15-2024 Tobacco smoking status RIIS Former smoker [facility] Start: 02-09-2021 End: 01-14-2025 Alcohol intake Current drinker of alcohol (finding) [facility] Work Phone: Start: 02-02-2021 Alcohol Comment occassional ETOH use, not on a daily basis [facility] Work Phone: Start: 1940 Sex Assigned At Not on file [facility] Work Phone: Exposure to SARS-CoV -2 (event) Not sure [facility] Start: 12-14-2022 Tobacco smoking status RIIS Tobacco smoking consumption unknown [facility] Start: 05-15-2020 History SDOH Alcohol Frequency 2 [facility] Start: 05-15-2020 History SDOH Alcohol Std Drinks 1 [facility] Start: 12-10-2019 History SDOH Financial 4 [facility] Start: 1940 Sex Assigned At Male [facility] Start: 01-08-1960 End: 01-07-1990 History of tobacco use Current smoker [facility] Work Phone: Start: 01-08-1960 End: 01-07-1990 History of tobacco use Cigarette Smoker [facility] Work Phone: Start: 05-15-2020 End: 05-05-2023 Cigarettes smoked current (pack per day) - Reported 1 [facility] Work Phone: Start: 05-15-2020 End: 06-18-2024 Tobacco use and exposure Smokeless tobacco non-user [facility] Work Phone: Start: 09-05-2019 End: 05-05-2023 Tobacco Comment STOPPED 28 YEARS AGO [facility] Start: 09-05-2019 Alcohol Comment OCCASIONAL [facility] Start: 09-12-2019 Heavy [facility] Start: 09-12-2019 None [facility] Start: 11-23-2019 - [facility] Start: 12-18-2019 Non-smoker [facility] Start: 05-15-2020 End: 05-05-2023 Alcohol Use Disorder Identification Test - Consumption [AUDIT-C] [facility] Work Phone: How often to you hav e a drink containing alcohol? Monthly or less [facility] Work Phone: How many standard dr inks containing alcohol do you have on a typical day? 1 or 2 [facility] Work Phone: Frequency of Binge Drinking Not on file [facility] How hard is it for y ou to pay for the very basics like food, housing, medical care, and heating Not very hard [facility] (I/We) worried whemeka er (my/our) food would run out before (I/we) got money to buy more. DK or Refused [facility] Start: 09-20-2024 End: 10-16-2024 Sex Male (finding) [facility] Medical Equipment Procedure Code Equipment Code Equipment Origin al Text Equipment Identifier Dates ERCP (endoscopic retrograde cholangiopancreatog lalit) ([id number]) Polymeric biliary stent, non-bioabsorbable [id number] FDA Start: 12-15-2022 Patch Xenosure Bovine Pericardial Tissue 8x.8cm Vascular Sterile - [id number] Start: 09-02-2019 Goals Date Patient Goal Desired Activity /State Functional Status Date Assessment Result Facility 12-17-[address] [facility] Work Phone: 12-16-2022 Functional status Tolerates Activity Fair [facility] Work Phone: 01-13-2022 Functional Status Room check performed [facility] 01-13-2022 Functional Status [facility] 01-13-2022 Functional Status [facility] 01-13-2022 [facility]22 [facility] 01-12-2022 [facility] 01-12-2022 [facility] 01-12-2022 Functional Status [facility] 01-12-2022 Functional Status [facility] 01-12-2022 Functional Status Bed Bath Refused [facility] 01-12-2022 Functional Status bilateral knee high [facility] 01-12-2022 Functional Status padded oxygen tubing [facility] 01-11-2022 Functional Status Linen Change Done [facility] 01-11-2022 [facility] 01-11-2022 Functional Status [facility] 01-10-2022 Functional Status [facility] 01-10-2022 Functional Status [facility] 01-10-2022 Functional Status Shampoo/Body w abdirashid (no rinse), CHG bath [facility] 01-10-2022 [facility] 01-09-2022 Functional Status [facility] 01-09-2022 Functional [facility] 01-08-2022 Functional Status [facility] 01-07-2022 Functional Status Transfer Bed t o/from Chair Total 2 [facility] 01-07-2022 Functional Status Supervised 3 [facility] 01-07-2022 Functional Status Hair Care Maximum paola tance [facility] 01-07-2022 Functional Status Fluid Restriction Maint ained [facility] 01-06-2022 Functional Status [facility] 01-05-2022 Functional Status Special Call D candida Unable to use call device [facility] 01-05-2022 Functional Status [facility] 01-05-2022 Functional Status [facility] 01-05-2022 Functional Status Patient Identi fied Identification band, Verbal [facility] 01-04-2022 Functional Status Skin Care Done [facility] 01-03-2022 Functional Status [facility] 01-01-2022 Functional Status [facility] 12-30-2021 Functional Status Living Situati on Retirement Unit [facility] 12-30-2021 Functional Status Sensory Defici ts Blind, left eye, Blind, right eye [facility] 12-11-2019 Are you deaf, or do you have serious difficulty hearing No 12/11/2019 4:18 PM Josefa Graves RN No [facility] 12-11-2019 Are you blind, or do you have serious difficulty seeing, even when wearing glasses No 12/11/2019 4:18 PM Josefa Graves, KAVIN No [facility] 12-11-2019 Do you have serious difficulty walking or climbing stairs Yes 12/11/2019 4:18 PM Josefa Graves RN Yes [facility] 12-11-2019 Do you have difficul ty dressing or bathing No 12/11/2019 4:18 PM Josefa Graves RN No [facility] 12-11-2019 Because of a physica l, mental, or emotional condition, do you have difficulty doing errands alone such as visiting a physician's office or shopping Yes 12/11/2019 4:18 PM Josefa Graves, KAVIN Yes [facility] Mental Status Date Assessment Result Facility 12-17-2022 Cognitive function Voice/Name [facility] Work Phone: 01-13-2022 Mental Status Orientation [facility]ed [facility] 01-13-2022 Mental Status [facility] 01-12-2022 Mental Status [facility] 01-12-2022 Mental Status [facility] 01-11-2022 Mental Status [facility] 12-11-2019 Because of a physica l, mental, or emotional condition, do you have serious difficulty concentrating, remembering, or making decisions No 12/11/2019 4:18 PM EDT Josefa Mason RN No [facility] Clinical Notes 02-09-2021 to 01-14-2025 Gayla Cline MD - 01/14/2025 10:45 AM Gayla Banuelos MD - 01/14/2025 10:44 AM Gayla Banuelos MD - 01/14/2025 10:44 AM EDT Note Date & Type Note Facility 01-14-2025 Note HNO ID: [id number] Author: GAYLA CLINE MD Service: ? Author [...] 1.22 mg/dL Final No results found for: PSA, PSASC GLUCOSE UA (POCT) (mg/dL) Date Value [...] (Patient not taking: Reported on 01/14/2025) vit C,O-Py-vfhhg-lutein-zeaxan (PRESERVISION AREDS-2) 250-90-40-1 mg Take 1 Each [...] daily. (Patient n (more content not included)... 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 Dr. Montgomery in [place] Congestive heart failure (HCC) Diabetes mellitus (HCC) DM (diabetes mellitus) ([facility]) PCP follows Dyslipidemia Heart attack (HCC) HTN [...] Gayla Cline MD documented in this encounter [facility] 01-14-2025 Note HNO ID: [id number] Author: GAYLA CLINE MD Service: ? Author Type: Physician Type: Procedures Filed: 01/14/2025 10:48 Note Text: CYSTOSCOPY PROCEDURE NOTE : Elizabeth Modi is a 84 year old male who is here for cystoscopy PRE-OP/PRE-PROCEDURE DIAGNOSIS: h/o gross henaturia POST-OP/POST-PROCEDURE DIAGNOSIS: same SURGERY/PROCEDURE(S): Cystoscopy Pt ID verified with patient: Yes Procedure verified with patient: Yes Procedure confirmed with physician and youth support worker: Yes UNIVERSAL PROTOCOL / SAFETY CHECKLIST Procedure [...] meaning may be extrapolated by contextual derivation. [facility] 01-14-2025 Procedure note CYSTOSCOPY PROCEDURE NOTE : Elizabeth Modi is a 84 year old male who is here for cystoscopy PRE-OP/PRE-PROCEDURE DIAGNOSIS: h/o gross henaturia POST-OP/POST-PROCEDURE DIAGNOSIS: same SURGERY/PROCEDURE(S): Cystoscopy Pt ID verified with patient: Yes Procedure verified with patient: Yes Procedure confirmed with physician and youth support worker: Yes UNIVERSAL PROTOCOL / SAFETY CHECKLIST Procedure [...] meaning may be extrapolated by contextual derivation. [facility] 01-14-2025 Procedure note CYSTOSCOPY PROCEDURE NOTE : Elizabeth Modi is a 84 year old male who is here for cystoscopy PRE-OP/PRE-PROCEDURE DIAGNOSIS: h/o gross henaturia POST-OP/POST-PROCEDURE DIAGNOSIS: same SURGERY/PROCEDURE(S): Cystoscopy Pt ID verified with patient: Yes Procedure verified with patient: Yes Procedure confirmed with physician and youth support worker: Yes UNIVERSAL PROTOCOL / SAFETY CHECKLIST Procedure [...] by contextual derivation. documented in this encounter [facility] 10-16-2024 Evaluation note Diagnosis Onset Date Resolution Atherosclerotic heart disease of [place] coronary artery without angina pectoris chronic October 16, 2024 7:59am Essential hypertension chronic Ap 2024 7:59am Hyperlipidemia chronic September 7:59am Paroxysmal atrial fibrillation chronic October 16, 2024 7:59am [facility] Work Phone: [phone] Discharge summary [facility] Medical Records Department [address] [place] [address] Emergency Department Summary 10/15/24 MR#: [id number] Acct: [id number] Name: ELIZABETH MODI Rep #:[id number] : 1940 84 From: Jesse Griffith PCP: [...] of his last tetanus. 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 Call [facility] ([phone]) or report tothe closest Emergency Room. Call 911 if necessary. 10/15/24 3886 Cosigner Signature (if applicable): CC: Dr. Diana Salmeron MD ~ Signed [facility]04-29-2025 Radiology Diagnostic study note [facility] [address] [place] [address] Elbow min 3 Views MR#: [id number] Acct: [id number] Name: ELIZABETH MODI Rep #: [id number] : 1940 M 84 From: Franko Kapadia MD PCP: Dr. Diana Salmeron MD Status: REG ER Study:Elbow min 3 Views Date of Exam: Exam# [id number] Ordering Dr: Jesse Angel DO EXAM: Left elbow CLINICAL HISTORY: Injury, pain COMPARISON: None TECHNIQUE: Three views FINDINGS: No acute fracture or dislocation. Moderate joint space narrowing and osteophyte formation consistent with moderatearthrosis. Normal soft tissues. RAD/Elbow min 3 Views IMPRESSION: No acute fracture or dislocation. Moderate arthrosis. Reading Location: [facility] CC: Dr. Diana Salmeron MD; Dr. Jesse Angel DO ~ Resolution Expert: Signed [facility]04-29-2025 Radiology Diagnostic study note [facility] [address] [place] [address] Orb Sella Post Fossa Ear w/o MR#: [id number] Acct: [id number] Name: ELIZABETH MODI Rep #: [id number] : 1940 M 84 From: Franko Kapadia MD PCP: Dr. Diana Salmeron MD Status: REG ER Study:Orb Sella Post Fossa Ear w/o Date of Ex am: 10/15/24 Exam# [id number] Ordering Dr: Jesse Angel DO PROCEDURE: ORB [...] ORBITAL FRACTURE OR RETROBULBAR HEMATOMA. Reading Location: [id number] CC: Dr. Diana Salmeron MD; Dr. Jesse Angel DO ~ Resolution Expert: Signed [facility]04-29-2025 Discharge summary Author Jesse Angel [facility] Note Date/Time October 15, 2024 11: 45pm [facility] Medical Records Department [address] [place] [address] Emergency Department Summary 10/15/24 MR#: [id number] Acct: [id number] Name: ELIZABETH MODI Rep #:[id number] : 1940 84 From: Jesse Griffith PCP: [...] of his last tetanus. 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 Call [facility] ([phone]) or report to the closest Emergency Room. Call 911 if necessary. 10/15/245 <Electronically signed by Jesse Angel DO> Cosigner Signature (if applicable): CC: Dr. Diana Salmeron MD ~ Signed [facility] Work Phone: 1(112) 652-561004-15-2025 Telephone encounter Note* Telephone Encounter - Yue Huffman - 10/01/2024 2:11 PM EDT May you please submit another order for for Urogram CT. When last appt was canceled the order was not removed from the appt. Sorry for the inconvenience. Marivel PSS [facility]04-15-2025 Miscellaneous Notes* Telephone Encounter - Yue Su - 10/01/2024 2:11 PM EDT May you please submit another order for for Urogram CT. When last appt was canceled the order was not removed from the appt. Sorry for the inconvenience. Marivel PSS documented in this encounterH[facility]04[facility] Instructions* Patient Instructions* Nikolai Connor PA-C - 10/01/2024 1:46 PM EDT documented in this encounterH[facility]ing [facility]04-15-2025 NoteHNO ID: [id number] Author: NIKOLAI CONNOR PA-C Service: ? 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 Dr. Montgomery in [place] Congestive (more content not included)...[facility]04-15-2025 History of Present illness Narrative* Nikolai Connor PA-C - 10/01/2024 1:42 PM EDT Images from the original note were not included. [facility] PATIENT CLINIC NOTE (M) [...] (ADULTS MULTIVITAMIN ORAL) Take by mouth. 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 Dr. Montgomery in [place] Congestive heart failure (HCC) DM (diabetes mellitus) [...] cyanosis, or edema The patient or authorized sales and merchandising representative has verbally agreed to proceed with [...] cystoscopy (bladder scope) with Dr. Hawk at [facility] has been placed; please turn in the printed order with the [facility] so they can schedule your procedure. A [...] Plan: Appointment with Nikolai. documented in this encounterH[facility]ing [facility]04-15-2025 NoteHNO ID: [id number] Author: LUKE TAYLOR LPN Service: ? Author [...] tolerated the procedure well. Plan: Appointment with Nikolai.[facility]03-21-2025 Evaluation note* Diagnosis Onset Date Resolution Status Admit Date Fecal incontinence acute September 06, 2024 1:38pm S/P ERCP chronic September 06 1:38pm [facility] Work Phone: [phone] Evaluation note* Diagnosis Onset Date Resolution Status Admit Date Fecal incontinence acute September 06, 2024 1:38pm S/P ERCP chronic March 21st, 20 25 1:38pm Atherosclerotic heart diseas e of [place] coronary artery without angina pectoris chronic October 16, 2024 7:59am Essential hypertension chronic Ap 2024 7:59am Hyperlipidemia chronic September 7:59am Paroxysmal atrial fibrillation chron ic October 16, 2024 7:59am [facility] Work Phone: [phone] Telephone encounter Note* Telephone Encounter - Luke Taylor LPN - 07/09/2024 3:50 PM EST Letter sent to patient that we have not been able to contact Angelic. Luke Taylor LPN [facility]01-21-2025 Miscellaneous Notes* Telephone Encounter - Luke Taylor LPN - 07/09/2024 3:50 PM EST Letter sent to patient that we have not been able to contact Angelic. Luke Taylor LPN * Telephone Encounter - Luke Taylor LPN - 07/09/2024 3:47 PM EST Called Angelic. No answer- left message to call clinic. Luke Taylor LPN * Telephone Encounter - Luke Tyalor LPN - 07/05/2024 4:27 PM EST Called [...] the rest of the testing JAJA Stewart, MD, TU documented in this encounterHocking [facility]01-21-2025 Telephone encounter Note * Telephone Encounter - Luke Taylor LPN - 07/09/2024 3:47 PM EST Called Angelic. No answer- left message to call clinic. Luke Taylor LPN [facility]01-17-2025 Telephone encounter Note* Telephone Encounter - Luke Taylor LPN - 07/05/2024 4:27 PM EST Called Angelic. No answer- left message to call clinic. Luke Taylor LPN [facility]01-14-2025 Telephone encounter Note* Telephone Encounter - Nayeli Dominguez - 07/02/2024 2:24 PM EST Left pt's daughter message to call & schedule cysto with Dr. Prakash Connor. Delmi [facility]01-14-2025 Miscellaneous Notes* Telephone Encounter - Nayeli Dominguez - 07/02/2024 2:24 PM EST Left pt's daughter message to call & schedule cysto with Dr. Prakash Connor. Delmi documented in this encounterHocking [facility]01-10-2025 History of Present illness Narrative* Fatou GeorgesuegerLuke RT(R) - 06/28/2024 1:20 PM EST Radiology [...] PATIENT PRESENTS WITH AN IMPLANTABLE OR ATTACHED RACK WASHER: No ALLERGIES: Reviewed and unchanged CONTRAST ALLERGY: [...] 2024 TIME: 1:57 PM documented in this encounterHocking Valley [facility] Hospital01-10-2025 NoteHNO ID: [id number] Author: LUKE WHITMORE RT(R) Service: ? Author Type: Kaiako Kura Tuarua Type: Progress Notes Filed: 06/28/2024 13:57 Note [...] PATIENT PRESENTS WITH AN IMPLANTABLE OR ATTACHED RACK WASHER: No ALLERGIES: Reviewed and unchanged CONTRAST ALLERGY: [...] Modi DATE: June 28, 2024 TIME: 1:57 [facility]01-07-2025 Telephone encounter Note* Telephone Encounter - Susan Joy MA - 06/25/2024 8:46 AM EST LM for Angelic to contact office to inform. Susan Joy MA [facility]01-03-2025 Telephone encounter Note* Telephone Encounter - Anaid Payne MA - 06/21/2024 4:28 PM EST ----- Message from Nikolai Connor PA-C sent at 06/21/2024 3:54 PM EST ----- No infection in the urine No cancer cells in urine, please continue the rest of the testing JAJA Stewart MT, PA-C [facility]12-31-2024 NoteHNO ID: [id number] Author: NIKOLAI CONNOR PA-C Service: ? Author Type: Physician Lead Laying And Gluing Machine Operator Type: Progress Notes Filed: 06/18/2024 16:05 Note Text: [facility] NEW PATIENT CLINIC NOTE SERVICE DATE: June 18, 2024 NAME: Elizabeth Modi CHIEF COMPLAINT: Hematuria HISTORY OF PRESENT ILLNESS: Elizabeth Modi is a 83 year old male an new patient here for The patient reports Hematuria with a few episodes of hematuria Will get Urine sample today for culture and cytology Schedule Cystoscopy at [place] And CT Urogram at [place] We discussed the need for full hematuria [...] (ADULTS MULTIVITAMIN ORAL) Take by mouth. vit C,Q-Jp-jzpua-lutein-zeaxan (PRESERVISION AREDS-2) 250-90-40-1 mg Take 1 Each [...] kidney disease no dialysis. Dr. Montgomery in [place] Congestive heart failure (HCC) DM (diabetes mellitus) (HCC) PCP follows Dyslipidemia Heart attack (HCC) HTN (hypertension) Hypercholesterolemia Hypothyroidism PVD (peripheral vascular disease) (HCC) Renal mass (more content not included)...[facility]12-31-2024 History of Present illness Narrative* Nikolai Connor PA-C - 06/18/2024 1:26 PM EST Images from the original note were not included. [facility] NEW PATIENT CLINIC NOTE SERVICE DATE: June 18, 2024 NAME: Elizabeth Modi CHIEF COMPLAINT: Hematuria HISTORY OF PRESENT ILLNESS: Elizabeth Modi is a 83 year old male an new patient here for The patient reports Hematuria with a few episodes of hematuria Will get Urine sample today for culture and cytology Schedule Cystoscopy at [place] And CT Urogram at [place] We discussed the need for full hematuria [...] (ADULTS MULTIVITAMIN ORAL) Take by mouth. vit C,L-Jk-kxlip-lutein-zeaxan (PRESERVISION AREDS-2) 250-90-40-1 mg Take 1 Each [...] kidney disease no dialysis. Dr. Montgomery in [place] Congestive heart failure (HCC) DM (diabetes mellitus) [...] JAJA Stewart MT, PA-C documented in this encounterHocking Valley Community Hospital12-19-2024 Evaluation note* Diagnosis Onset Date Resolution Status Admit Date Fecal incontinence acute Decemb er 2023 3:30pm S/P ERCP chronic Gil 2023 3:30pm Fecal incontinence acute September 06, 2024 1:38pm S/P ERCP chronic September 06 1:38pm [facility] Work Phone: 1([phone]) 631-678102-18-2024 Note. MICRO - Microbiology PROCEDURE: Blood Culture [...] Locations *1: This test was performed at: [address], [facility] , [facility] ([place]08-04-2023 Note. MICRO - Microbiology PROCEDURE: Blood Culture [...] Locations *1: This test was performed at: [address], [facility] , [facility] ([place]04-16-2023 Note. MICRO - Microbiology PROCEDURE: Culture Wound [...] Locations *1: This test was performed at: [address], [facility] , [facility] ([place]03-27-2023 Miscellaneous Notes* Telephone Encounter - Ammy Bradshaw - 03/27/2023 1:44 PM EDT Referral received [facility] for [place] to call and schedule appt. Ammy Bradshaw documented in this encounterHocking Valley Community Hospital03-21-2023 Miscellaneous Notes* Telephone Encounter - Quan Iraheta DO - 09/06/2022 5:03 PM EDT Spoke with patient's nurse at [facility]. Counseled to taper prednisone by 2.5mg [...] agreement with the plan. documented in this encounterHocking Valley Community Hospital03-21-2023 Miscellaneous Notes* Telephone Encounter - Quan Iraheta DO - 09/06/2022 12:47 PM EDT Attempted to speak with a provider for Mr. Modi at [facility] to student success counselor prednisone taper of 2.5mg q week based upon rheumatology and ophthalmology evaluation not c/w GCA. Phone rang without answer x 2. Will attempt to call again this afternoon. documented in this encounterHocking Valley Community Hospital03-16-2023 History of Present illness Narrative* Terence Phelps MD - 09/01/2022 2:08 PM EDT SPRING COVERER - Referred by Dr. 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 Age related macular degeneration - Smoking [...] 01, 2022 3:05 PM documented in this encounterHocking Valley Community Hospital03-16-2023 Instructions* Patient Instructions* Shana Delgado MD - 09/01/2022 10:54 AM EDT Labs on the first floor today Eye exam today in [facility] Continue prednisone dose as is pending labs and eye evaluation documented in this encounterHocking Valley Community Hospital03-16-2023 History of Present illness Narrative* [...] vascular disease s/p bilateral BKA, CKD, and CO s/p CABG who presents for evaluation of GCA in the setting of bilateral decreased vision associated with photosensitivity. Primary concern is vision loss which started several years ago Vision loss is worse in the light, in a dark him his vision feels fine The light bothers him but isn't exactly painful Right cataract surgery [...] muscle aches or pains Vascular surgery at [facility]: Left temporal artery biopsy 12/24/2021 A. [...] vessels Eye doctor Dr. Lucas at [facility] sent him to [facility] for GCA evaluation [phone], Currently on prednisone 10mg daily since 02/28/2022 [...] (initially didn't like the food at the [facility]) HEAD: negative for, scalp tenderness, jaw claudication, [...] kidney disease no dialysis. Dr. Montgomery in [place] Congestive heart failure (HCC) DM (diabetes mellitus) [...] (L56.8) Photosensitivity (I73.9) PVD (peripheral vascular disease) (HCC) (E11.69) Type 2 diabetes mellitus with other specified complication, without long-term current use of (Z79.52) retirement current use of systemic steroids (E55.9) Vitamin D deficiency Elizabeth Modi is a very pleasant 82 yo male with a past medical history notable for bilateral cataracts, long-standing type 2 diabetes, tobacco use disorder (quit ), peripheral vascular disease s/p bilateral BKA, CKD, hearing loss, and CO s/p CABG who presents for evaluation of GCA in the setting of bilateral decreased vision associated with photosensitivity. This is a very pleasant 82 yo male with numerous cardiovascular risk factors presenting in the context of decreased vision with photosensitivity. Based upon the history that was obtained from the patient and [facility] caregiver today, he has not endorsed GCA [...] Zack Iraheta DO PGY5 Rheumatology Fellow Pager [phone] The above patient was seen and examined [...] arteritis Shana Burton MD documented in this encounterHocking Valley Community Hospital08-01-2022 Note ORIGINAL EXAMINATION: TWO XRAY [...] Sign Date: 01/17/2022 11:59:11 PM Ordering Provider: [facility]08-01-2022 Note ORIGINAL EXAMINATION: TWO XRAY VIEWS [...] Sign Date: 01/17/2022 11:59:11 PM Ordering Provider: [facility]07-28-2022 Note Discharge Instructions Thank you for [...] Op 01/17/2022 01:00 PM EDT HUNTER FALCON [facility] Cardiothoracic Surgery [facility] Hospital Follow Up 02/15/2022 10:00 AM EDT [facility] Heart Vascular [facility] Follow Up Appointments Follow Up with KARL HIDALGO MD When 02/15/2022 10:00 AM EDT Where: [address] [place] [address]- Follow Up with HUNTER FALCON When 01/17/2022 01:30 PM EDT Why: please obtain a CXR 1 hour prior to your appt. Where: [address] [facility] [place] [address]- Follow Up with Discharge to [facility] LOC [phone] When Within 1-2 days Follow Up with Cardiac Rehab- [facility] When Why: The Cardiac Rehab department will call you to schedule you for phase 2. We left you a brochurewith information about cardiac rehab. If you have any questions please call [phone]. Where: [facility] [address] [place] [address]- The Following Activity and Diet Have Been [...] surgeon and have chest x-ray done at [facility] radiology., 01/13/22 10:45:00 EDT Other Therapies Transfer [...] to receive it can visit one of [facility] vaccine clinics. There are many vaccine clinic locations within the [facility]. For locations and available times, please visit [email or web address] It is important to note that some COVID mobile vaccine clinics are held outdoors and may be canceled in rainy or stormy conditions. To learn more about pediatric vaccinations (ages 5-11), we invite you to visit the [facility] webpage. [email or web address]/pages/[email or web address]-[email or web address] stions.htmlTo learn more about the COVID-19 vaccine, we invite you to visit the [employer] website for a list of frequently asked questions. [email or web address] [employer] Patient Portal Access Instructions: Stay connected with your healthcare team and access your personal medical information anytime with the [facility] Patient Portal.If you would like a full copy of your medical records, please contact the [facility] Medical Records Department, Monday through Monday between 8a.m. and 4:30p.m. Please follow the directions below to access the portal: 1.Access the email account you provided upon registration to the [facility].2.Look for an invitation email from [facility].3.Open the email and access the invitation link: Accept Invitation to [employer]4.Fill in the required rios to create your account. Sign into [email or web address] with your username and password that you [...] you will allow to register on the [employer] Patient Portal for access to your information. You can also access the [employer] Patient Portal on the [employer]. Simply click on Health Records under [employer] and then click on the [employer] logo. HOW TO SAFELY DISPOSE OF PRESCRIPTION [...] Call your local pharmacy or go to [email or web address] to find one close to you.3.Make use of household items: Use cat litter or old coffee grounds to dispose medications if other options arenot available. Mix your drugs with these household products, seal them in an airtight container andthrow it into the garbage. Call [facility]: [phone] to be sure your drugs can be [...] that I should contact my do ctor. Patient/Pipe And Test Supervisor Signature: Date/Time: Relationship to Patient: Witness Name/Signature: Date/Time: [id number] Note ORIGINAL EXAMINATION: ONE XRAY VIEW OF [...] Date: 01/13/2022 6:27:59 AM Ordering Provider: YIMI [facility]07-28-2022 Note ORIGINAL EXAMINATION: ONE XRAY VIEW [...] Sign Date: 01/13/2022 6:27:59 AM Ordering Provider: [facility]07-27-2022 Note ORIGINAL EXAMINATION: ONE XRAY VIEW [...] Sign Date: 01/12/2022 7:32:39 PM Ordering Provider: [facility]07-27-2022 Note ORIGINAL EXAMINATION: ONE XRAY VIEW OF [...] Date: 01/12/2022 7:32:39 PM Ordering Provider: [facility]07-27-2022 Note Date of Service 01/12/2022 Temporary A and V pacer wires discontinued. Patient tolerated well. Patient instructed to remain bedrest for 1 hour. Digitally Signed by YIMI NEWELL on 01/12/2022 05:06 PM [facility] [id number] Note Date of Service 01/12/2022 Chief Complaint [...] cell arteritis on prednisone. He resides at [facility]. He presented on 12/30/2021 with sudden onset of altered mental status and shortness of breath. Troponin 3577. Creatinine elevated 2.3. He was transferred to [facility] for fur ther evaluation. Echocardiogram completed showing [...] rhythm in the 60s. Transfer to stepdown. [employer] inpatient endocrinology following for blood sugar management. [...] in bed. Reports 2 recent sharp pains in my heart while laying in bed. Objective Vitals and [...] Central venous access: Left subclavian triple-lumen Disposition: [place] [facility] Weight Current Weight Dosing Weight: 81.5 [...] 7. Diabetes Hgb A1c 8.4% Followed by [employer] inpatient endocrinology. Glucoses ranging 69-1 33. On [...] Dr. Hernandez. [1] Progress Note; PALAK NORMAN APRN-BLOCKER AND SEWER 01/11/2022 11:08 EDT Digitally Signed by YIMI NEWELL APRN-CLINIC CHARGE NURSE on 01/12/2022 04:58 PM [facility] [id number] Note Date of Service 07/14/2021 postop day [...] cell arteritis on prednisone. He resides at [facility]. He presented on 12/30/2021 with sudden onset of altered mental status and shortness of breath. Troponin 3577. Creatinine elevated 2.3. He was transferred to [facility] for fur ther evaluation. Echocardiogram completed showing [...] rhythm in the 60s. Transfer to stepdown. [employer] inpatient endocrinology following for blood sugar management. [...] 09:04 EDT Digitally Signed by PALAK NORMAN APRN-BLOCKER AND SEWER on 01/11/2022 11:18 AM [facility] [id number] Endocrinology Progress note Date of Service 01/11/22 [...] Weinstein on 12/24/2021-on prednisone. He resides at [facility] past 3 months. He presented to [facility] on December 30, 2021 due to a sudden onset of alteredmental status and shortness of breath. At [facility], he was noted to have acute kidney injury with creatinine 2.3 and elevated troponin at 3577. EKG revealed normal sinus rhythm without evidenceof ST elevation or depression. Negative for COVID-19 at [facility]. He was transferred to [facility] for further evaluation. Echocardiogram on December 30, 2021 revealed an EF of 45 to 50% and mild MR. 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 Cardiothoracic surgery was consulted for possible surgical myocardial vascularization. 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 Endocrine consult placed by [facility] for diabetic management. Longstanding type II diabetic with A1c of 8.4%. Currently residing at [facility] with orders in place for [...] 10 units qhs, metformin 500 twice daily, [id number] qd and a 0-10 sliding scale with [...] by CASPER MURRY on 01/11/2022 11:35 AM [facility] [id number] Note ORIGINAL EXAMINATION: CT OF THE CHEST [...] 01/10/2022 4:43:27 PM Ordering Provider: [facility]07-25-2022 Endocrinology Progress note Date of Service 01/10/22 [...] mupirocin 2% Ointment 22 Gram(s) tube 1 feim, Nostril, each, BID pantoprazole 40 mg EC [...] Weinstein on 12/24/2021-on prednisone. [facility] resides [facility] past [facility]. He presented to [facility] on December 30, 2021 due to a sudden onset of alteredmental status and shortness of breath. At [facility], he was noted to have acute kidney injury with creatinine 2.3 and elevated troponin at 3577. EKG revealed normal sinus rhythm without evidenceof ST elevation or depression. Negative for COVID-19 at [facility]. He was transferred to [facility] for further evaluation. Echocardiogram on December 30, 2021 revealed an EF of 45 to 50% and mild MR. 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 Cardiothoracic surgery was consulted for possible surgical myocardial vascularization. 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 Endocrine consult placed by [facility] for diabetic management. Longstanding type II diabetic with A1c of 8.4%. Currently residing at [facility] with orders in place for [...] by CASPER MURRY on 01/10/2022 04:44 PM [facility] [id number] Note ORIGINAL EXAMINATION: CT OF THE CHEST [...] Date: 01/10/2022 4:43:27 PM Ordering Provider: [facility]07-25-2022 Note Date of Service 01/10/2022 Chief [...] cell arteritis on prednisone. He resides at [facility]. He presented on 12/30/2021 with sudden onset of altered mental status and shortness of breath. Troponin 3577. Creatinine elevated 2.3. He was transferred to [facility] for further evaluation. Echocardiogram completed showing EF [...] by NICHOLE RODRIGUEZ on 01/10/2022 08:37 AM [facility] [id number] Note Date of Service 01/09/2022 Repeat INR 6.3. Aquamephyton 10 mg SQ x1. Repeat INR in 4 hours. Digitally Signed by KASSIDY SHANKAR on 01/09/2022 02:03 PM [facility] [id number] Endocrinology Progress note Date of Service 01/09/22 [...] Weinstein on 12/24/2021-on prednisone. He resides at [facility] for[facility] past 3 months. He presented to [facility] on December 30, 2021 due to a sudden onset of alteredmental status and shortness of breath. At [facility], he was noted to have acute kidney injury with creatinine 2.3 and elevated troponin at 3577. EKG revealed normal sinus rhythm without evidenceof ST elevation or depression. Negative for COVID-19 at [facility]. He was transferred to [facility] for further evaluation. Echocardiogram on December 30, 2021 revealed an EF of 45 to 50% and mild MR. 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 Cardiothoracic surgery was consulted for possible surgical myocardial vascularization. 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 Endocrine consult placed by [facility] for diabetic management. Longstanding type II diabetic with A1c of 8.4%. Currently residing at [facility] with orders in place for [...] 01/09/22 8:32:00 EDT Digitally Signed by BERNICE OMNREAL MD on 01/09/2022 01:13 PM [facility] [id number] Note Date of Service 01/09/2022 POD #4 [...] giant cellarteritis on prednisone. He resides at [facility]. He presented on 12/30/2021 with sudden onset ofaltered mental status and shortness of breath. Troponin 3577. Creatinine elevated 2.3. He was transferred to [facility] for further evaluation. Echocardiogram completed showing EF [...] Continue Central Line: For IV access Disposition: [place] Weight Current Weight Dosing Weight: 81.5 [...] baseline, plan follow-up with Dr. Montgomery from [place] at discharge currently NSR rate 60, Coumadin on hold secondary to elevated INR 4.8. 5. CKD (chronic kidney disease), stage III 6. AF (paroxysmal atrial fibrillation) Currently NSR rate 60, Coumadin on hold secondary to elevated INR 4.8.Repeat INR at noon. On amiodarone. Home amiodarone and Eliquis were both discontinued in August 2021 7. Diabetes Hgb A1c 8.4% Glucose 68-177, [employer] inpatient endocrinology following 8. HTN (hypertension) Blood pressure 118/91-164/70, increase lisinopril 9. HLD (hyperlipidemia) Atorvastatin 10. Hypothyroid Levothyroxine 11. 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 PVD (peripheral vascular disease) s/p bilateral BKA 2019 13. 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 Leukocytosis Resolved, afebrile Discussed with Dr. Mathias, toya Coumadin, repeat INR at noon [1] Progress Note; KASSIDY SHANKAR 01/08/2022 10:58 EDT Digitally Signed by KASSIDY SHANKAR on 01/09/2022 11:51 AM [facility] [id number] Note ORIGINAL EXAMINATION: TWO XRAY VIEWS OF [...] Date: 01/09/2022 7:51:53 AM [facility] Note ORIGINAL EXAMINATION: TWO XRAY VIEWS [...] Date: 01/09/2022 7:51:53 AM [facility]ology Progress note Date of [...] Glucose, Capillary 01/08/2022 16:28:00 EDT 132 mg/dL HI 82-115 Glucose Testing Blood Glucose, Capillary 01/08/2022 [...] Weinstein on 12/24/2021-on prednisone. He resides [facility] past [facility]. He presented to [facility] on December 30, 2021 due to a sudden onset of alteredmental status and shortness of breath. At [facility], he was noted to have acute kidney injury with creatinine 2.3 and elevated troponin at 3577. EKG revealed normal sinus rhythm without evidenceof ST elevation or depression. Negative for COVID-19 at [facility]. He was transferred to [facility] for further evaluation. Echocardiogram on December 30, 2021 revealed an EF of 45 to 50% and mild MR. 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 Cardiothoracic surgery was consulted for possible surgical myocardial vascularization. 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 Endocrine consult placed by [facility] for diabetic management. Longstanding type II diabetic with A1c of 8.4%. Currently residing at [facility] with orders in place for [...] BERNICE MONREAL MD on 01/08/2022 05:20 PM [facility] [id number] Note Date of Service 01/08/2022 POD #3 [...] giant cellarteritis on prednisone. He resides at [facility]. He presented on 12/30/2021 with sudden onset ofaltered mental status and shortness of breath. Troponin 3577. Creatinine elevated 2.3. [facility] was transferred to [facility] evaluation. Echocardiogram completed showing EF [...] bradycardia. [facility] Subject[facility] No complaints Objective Vitals and Measurements [...] 7. Diabetes Hgb A1c 8.4% Glucose 141-249, [employer] inpatient endocrinology following 8. HTN (hypertension) Blood [...] KASSIDY SHANKAR APRN-GURWINDER on 01/08/2022 11:02 AM [facility] [id number] Note ORIGINAL EXAMINATION: ONE XRAY VIEW OF [...] Sign Date: 01/08/2022 7:49:49 AM Ordering Provider: [facility]07-23-2022 Note ORIGINAL EXAMINATION: ONE XRAY VIEW OF [...] Date: 01/08/2022 7:49:49 AM Ordering Provider: [facility]07-22-2022 Nephrology Progress note Date of Service [...] renal standpoint. Patient will follow with his toe lining closer Dr. Montgomery in [place] on discharge. Discussed with patient. Digitally Signed by TAMIKA RODAS MD on 01/07/2022 12:42 PM [facility] [id number] Note ORIGINAL EXAMINATION: TWO XRAY VIEWS OF [...] Date: 01/07/2022 12:23:59 PM Ordering Provider: [facility]07-22-2022 Endocrinology Progress note Date of Service [...] Glucose, Capillary 01/06/2022 12:00:00 EDT 127 mg/dL NV 82-115 Glucose Testing Blood Glucose, Capillary 01/06/2022 11:02:00 EDT 116 mg/dL NV 82-115 EKG EKG - Discontinued -- 01/01/22 [...] 12/24/2021-on prednisone. He resides at [facility] forthe past 3 months. He presented to [facility] on December 30, 2021 due to a sudden onset of alteredmental status and shortness of breath. At [facility], he was noted to have acute kidney injury with creatinine 2.3 and elevated troponin at 3577. EKG revealed normal sinus rhythm without evidenceof ST elevation or depression. Negative for COVID-19 at [facility]. He was transferred to [facility] for further evaluation. Echocardiogram on December 30, 2021 revealed an EF of 45 to 50% and mild MR. 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 Cardiothoracic surgery was consulted for possible surgical myocardial vascularization. 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 Endocrine consult placed by [facility] for diabetic management. Longstanding type II diabetic with A1c of 8.4%. Currently residing at [facility] with orders in place for [...] by CASPER MURRY on 01/07/2022 04:39 PM [facility] [id number] Note Date of Service 01/07/2022 Chief Complaint [...] and shortness of breath. He resides at [facility]. He denied having any chest pain or syncope. He was found to have an acute kidney injury at that time with creati nine of 2.3 and a troponin of 3577 at [facility]. He was transferred to [employer] for further evaluation where an echocardiogram revealed [...] Central venous access: Left subclavian triple-lumen Disposition[facility] Weight Current Weight Dosing Weight: 81.5 kg [...] 7. Diabetes Hgb A1c 8.4% Followed by [employer] inpatient endocrinology. Glucoses ranging 96-1 55. On [...] by YIMI NEWELL on 01/07/2022 10:01 AM [facility] [id number] Anesthesiology Consult note Patient: ELIZABETH MODI Age: [...] needed. No complications post-anesthesia.. Digitally Signed by LNIN RICHARD DO on 01/07/2022 08:18 AM [facility] [id number] Note ORIGINAL EXAMINATION: TWO XRAY VIEWS OF [...] Sign Date: 01/07/2022 12:23:59 PM Ordering Provider: [facility]07-21-2022 Nephrology Progress note Date of Service [...] TAMIKA RODAS MD on 01/06/2022 10:19 AM [facility] [id number] Endocrinology Progress note Date of Service 01/06/22 [...] infarction) 3. Acute blood loss anemia 4. UQIN (acute kidney injury) 5. CKD (chronic kidney [...] Weinstein on 12/24/2021-on prednisone. He resides [facility] past [facility]. He presented to [facility] on December 30, 2021 due to a sudden onset of alteredmental status and shortness of breath. At [facility], he was noted to have acute kidney injury with creatinine 2.3 and elevated troponin at 3577. EKG revealed normal sinus rhythm without evidenceof ST elevation or depression. Negative for COVID-19 at [facility]. He was transferred to [facility] for further evaluation. Echocardiogram on December 30, 2021 revealed an EF of 45 to 50% and mild MR. Cardiac catheterization completed showing multivessel disease.Cardiothoracic surgery has been consulted for possible surgical myocardial vascularization. Endocrine consult placed by [facility] for diabetic management. Longstanding type II diabetic with A1c of 8.4%. Currently residing at [facility] with orders in place for [...] by CASPER MURRY on 01/06/2022 04:03 PM [facility] [id number] Note Date of Service 01/06/2022 Chief Complaint [...] and shortness of breath. He resides at [facility]. He denied having any chest pain or syncope. He was found to have an acute kidney injury at that time with creati nine of 2.3 and a troponin of 3577 at [facility]. He was transferred to [employer] for further evaluation where an echocardiogram revealed [...] 1 45, on insulin drip per the [facility] ICU glycemic protocol at 8 units/h, endocrinology [...] by BARRERA SALES on 01/06/2022 07:42 AM [facility] [id number] Note ORIGINAL EXAMINATION: ONE XRAY VIEW OF [...] Date: 01/06/2022 6:18:00 AM [facility] Note ORIGINAL EXAMINATION: ONE XRAY VIEW [...] Sign Date: 01/06/2022 6:18:00 AM Ordering Provider: [facility] Cardiology Progress note Date of Service 01/05/22 [...] CELIO CLAROS MD on 01/05/2022 02:25 PM [facility] [id number] Nephrology Progress note Date of Service 01/05/2022 [...] TAMIKA RODAS MD on 01/05/2022 02:15 PM [facility] [id number] Note ORIGINAL HISTORY: Line placement COMPARISON: 5 [...] Sign Date: 01/05/2022 1:24:35 PM Ordering Provider: [facility]07-20-2022 Note ORIGINAL HISTORY: Nasogastric tube placement COMPARISON: No FINDINGS: There is a nasogastric tube with tip in the stomach and side hole at the gastroesophageal junction. Interpreted by: Zack Bucio MD Preliminary Report By: Zack Bucio MD Electronically signed By Zack Bucio MD Dictated Date: 01/05/2022 1:22:43 PM Prelim Date: 01/05/2022 1:23:19 PM Sign Date: 01/05/2022 1:23:19 PM Ordering Provider: [facility]07-20-2022 Note ORIGINAL HISTORY: Line [...] Sign Date: 01/05/2022 1:24:35 PM Ordering Provider: [facility]07-20-2022 Note ORIGINAL HISTORY: Nasogastric tube placement COMPARISON: No FINDINGS: There is a nasogastric tube with tip in the stomach and side hole at the gastroesophageal junction. Interpreted by: Zack Bucio MD Preliminary Report By: Zack Bucio MD Electronically signed By Zack Bucio MD Dictated Date: 01/05/2022 1:22:43 PM Prelim Date: 01/05/2022 1:23:19 PM Sign Date: 01/05/2022 1:23:19 PM Ordering Provider: [facility]07-20-2022 Cardiology Progress note Date of [...] CELIO CLAROS MD on 01/05/2022 02:25 PM [facility] [id number] Anesthesiology Consult note Patient: ELIZABETH MODI Age: [...] kidney disease), stage III / SNOMED CT 7829789652 / Confirmed CAD (coronary artery disease) / SNOMED CT 67373678 / Confirmed Diabetes / SNOMED CT 520581479 / Confirmed History of Singh's palsy / SNOMED CT 474294187 / Confirmed HLD (hyperlipidemia) / SNOMED CT 91523852 / Confirmed HTN (hypertension) / SNOMED CT 1664805726 / Confirmed Hypothyroid / SNOMED CT 74979463 / Confirmed QUIN (acute kidney injury) / SNOMED CT 42015170 / Confirmed Mood disorder / SNOMED CT 74814022 / Confirmed NSTEMI (non-ST elevated myocardial infarction) / SNOMED CT 51993509 / Confirmed AF (paroxysmal atrial fibrillation) / SNOMED CT 568576818 / Confirmed PVD (peripheral vascular disease) / SNOMED CT 3307708206 / Confirmed Giant cell arteritis / SNOMED CT 6130857984 / Confirmed, Active Problems (24) AF (paroxysmal atrial fibrillation) QUIN (acute kidney injury) CAD (coronary artery disease) Cataract CKD (chronic kidney disease), stage III COPD (chronic obstructive pulmonary disease) Depression Diabetes DM (diabetes mellitus) Giant cell arteritis Giant cell arteritis syndrome Glasses Heart disease High blood pressure History of Singh's palsy HLD (hyperlipidemia) HTN (hypertension) Hypothyroid Kidney disease CO (myocardial infarction) Mood disorder NSTEMI (non-ST elevated myocardial infarction) PVD (peripheral vascular disease) Tachycardia Histories Past Medical History: No active or resolved past medical history items have been selected or recorded. Family History: No family history items have been selected or recorded. Procedure history: Amputation ([id number]) in 2020 at 79 Years. Comments: 07/12/2021 14:23 Maria Esther Navarro RN Left below the knee Amputation ([id number]) in 2020 at 79 Years. Comments: 07/12/2021 14:24 Maria Esther Navarro RN right below the knee amputation Catheter ([id number]) in 2020 at 79 Years. Comments: 07/12/2021 14:25 Maria Esther Navarro RN Temporary dialysis cath None ([id number]). 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 Patient Dressed In Hospital gown [...] On and Limits Checked Nail Bed Color [place] Capillary Refill < 2 seconds Heart Sounds [...] Warm Temperature All Extremities Warm Skin Description [place], Normal for ethnicity, Dry Skin Integrity Pressure points intact Skin Turgor Elastic Mucous Membrane Color [place] Mucous Membrane Description Moist Sensory Perception Dre [...] Rhythm Sinus rhythm Monitoring Lead II, V1/MCL1 DC Interval 0.17 second(s) QRS Duration 0.12 second(s) [...] Transport Mode Order Detail MTT with Monitor Cloth Cutting Inspector Details Form Cloth Cutting Inspector Details Form 01/05/2022 0:28 EDT Skin Assessment [...] Transport Mode Order Detail MTT with Monitor Cloth Cutting Inspector Details Form Cloth Cutting Inspector Details Form 01/04/2022 23:29 EDT heparin Begin [...] On and Limits Checked Nail Bed Color [place] Capillary Refill < 2 seconds Heart Sounds ICU S1S2 Heart Rhythm Regular Radial Pulse, Left 2+ Normal Radial Pulse, Right 2+ Normal Popliteal Pulse, Left 1+ Thready Popliteal Pulse, Right 1+ [place] Edema Generalized None Cardiac Rhythm Sinus rhythm Monitoring Lead II, V1/MCL1 DC Interval 0.18 second(s) QRS Duration 0.12 second(s) QT Interval 0.47 second(s) QTc Interval 0.48 second(s) Alarms On and Functional Yes Respirations Unlabored Respiratory Pattern Regular Breath Sounds Auscultated Anterior only All Lobes Breath Sounds Clear Oxygen Therapy Room air Abdomen Description Non-distended, Symmetric, Soft Abdomen Palpation Non-Tender Bowel Sounds All Quadrants Present Urinary Elimination Voiding, no difficulties All Extremity Description [place], Normal for ethnicity Skin Temperature Warm Temperature All Extremities Warm Skin Description [place], Normal for ethnicity Mucous Membrane Color [place] Mucous Membrane Description Moist Leg Bilateral Skin [...] On and Limits Checked Nail Bed Color [place] Capillary Refill < 2 seconds Heart Sounds ICU S1S2 Heart Rhythm Regular Radial Pulse, Left 2+ Normal Radial Pulse, Right 2+ Normal Popliteal Pulse, Left 1+ Thready Popliteal Pulse, Right 1+ Thready Edema Generalized None Cardiac Rhythm Sinus rhythm Monitoring Lead II, V1/MCL1 DC Interval 0.19 second(s) QRS Duration 0.12 second(s) [...] Facial Movement Symmetric resting/crying All Extremity Description [place], Normal for ethnicity Skin Temperature Warm Temperature All Extremities Warm Skin Description [place], Normal for ethnicity Skin Integrity Pressure points intact Skin Turgor Elastic Mucous Membrane Color [place] Mucous Membrane Description Moist Sensory Perception Dre [...] Symptoms Bruising Skin Temperature Warm Skin Description [place], Normal for ethnicity Skin Integrity Intact Skin Turgor Elastic Mucous Membrane Color [place] Mucous Membrane Description Moist Sensory Perception Dre [...] On and Limits Checked Nail Bed Color [place] Capillary Refill < 2 seconds Heart Sounds [...] Facial Movement Symmetric resting/crying All Extremity Description [place], Normal for ethnicity Skin Temperature Warm Temperature All Extremities Warm Skin Description [place], Normal for ethnicity Skin Integrity Pressure points intact Skin Turgor Non-Elastic Mucous Membrane Color [place] Mucous Membrane Description Moist Leg Bilateral Skin [...] Rhythm Sinus rhythm Monitoring Lead III, V1/MCL1 DC Interval 0.20 second(s) QRS Duration 0.09 second(s) [...] mEq predniSONE 10 mg mg vitamin A 79394 unit(s) unit(s) 01/04/2022 8:39 EDT Heart Rate Monitored 59 bpm LOW Reason For Taking VItal Signs Routine Primary Pain Intensity 0 Primary Pain Nonverbal Response Nods No Pain Scale Type 0-10 Pain scale Monitor Alarms On and Limits Checked Nail Bed Color [place] Capill (more content not included)... [id number] Cardiology Progress note Date of Service 01/04/22 [...] CELIO CLAROS MD on 01/04/2022 02:59 PM [facility]Miyqlmtn71-70-2007 Cardiology Progress note Date of Service 01/04/22 [...] CELIO CLAROS MD on 01/04/2022 02:59 PM [facility] [id number] Endocrinology Progress note Date of Service 01/04/22 [...] Weinstein on 12/24/2021-on prednisone. [facility] He presented to [facility] on December 30, 2021 due to a sudden onset of alteredmental status and shortness of breath. At [facility], he was noted to have acute kidney injury with creatinine 2.3 and elevated troponin at 3577. EKG revealed normal sinus rhythm without evidenceof ST elevation or depression. Negative for COVID-19 at [facility]. He was transferred to [facility] for further evaluation. Echocardiogram on December 30, 2021 revealed an EF of 45 to 50% and mild MR. Cardiac catheterization completed showing multivessel disease.Cardiothoracic surgery has been consulted for possible surgical myocardial vascularization. Endocrine consult placed by CTS for diabetic management. Longstanding type II diabetic with A1c of 8.4%. Currently residing at [facility] with orders in place for [...] 25 minutes Digitally Signed by CASPER MURRY APRN-GURWINDER on 01/04/2022 04:05 PM [facility] [id number] Note ORIGINAL EXAMINATION: CTA OF THE NECK [...] Date: 01/04/2022 9:39:34 AM Ordering Provider: BARRERA SALES [id number] Cardiology Progress note Date of Service 01/03/22 [...] CELIO CLAROS MD on 01/03/2022 06:35 PM [facility] [id number] Note ORIGINAL EXAMINATION: CTA OF THE NECK [...] Sign Date: 01/04/2022 9:39:34 AM Ordering Provider: [facility]07-18-[address] Nurse [address], they said patient okay to come to CT with contrast after having metformin this AM 01/03/22. Pharmacy said to check with prescriber. Dr. Claros said patient okay to go to CT with contrast after taking metformin this AM 01/03/22. Digitally Signed by Macy Bolanos RN on 01/03/2022 04:45 PM [facility] CenterKkayudyz78-64-1971 Cardiology Progress note Date of Service 01/03/22 [...] CELIO CLAROS MD on 01/03/2022 06:35 PM [facility] [id number] Nephrology Progress note Date of Service 01/03/2022 [...] TAMIKA RODAS MD on 01/03/2022 10:59 AM [facility] CenterSzeyepek75-50-4141 Endocrinology Progress note Date of Service 01/03/22 [...] Glucose, Capillary 01/03/2022 07:10:00 EDT 174 mg/dL NV 82-115 Glucose Testing Glucose Level 01/03/2022 03:44:00 EDT 157 mg/dL NV 82-115 Glucose Testing Blood Glucose, Capillary 01/02/2022 21:13:00 EDT 222 mg/dL NV 82-115 Glucose Testing Blood Glucose, Capillary 01/02/2022 16:20:00 EDT 247 mg/dL NV 82-115 Glucose Testing Blood Glucose, Capillary 01/02/2022 11:29:00 EDT 177 mg/dL NV 82-115 EKG No qualifying data available. Assessment/Plan [...] 12/24/2021-on prednisone. He resides at [facility] forthe past 3 months. He presented to [facility] on December 30, 2021 due to a sudden onset of alteredmental status and shortness of breath. At [facility], he was noted to have acute kidney injury with creatinine 2.3 and elevated troponin at 3577. EKG revealed normal sinus rhythm without evidenceof ST elevation or depression. Negative for COVID-19 at [facility]. He was transferred to [facility] for further evaluation. Echocardiogram on December 30, 2021 revealed an EF of 45 to 50% and mild MR. Cardiac catheterization completed showing multivessel disease.Cardiothoracic surgery has been consulted for possible surgical myocardial vascularization. Endocrine consult placed by [facility] for diabetic management. Longstanding type II diabetic with A1c of 8.4%. Currently residing at [facility] with orders in place for [...] by CASPER MURRY on 01/03/2022 11:17 AM [facility] [id number] Cardiology Progress note Date of Service 01/02/2022 [...] BILL ALMODOVAR MD on 01/02/2022 04:22 PM [facility] [id number] Cardiology Progress note Date of Service 01/02/2022 [...] BILL ALMODOVAR MD on 01/02/2022 04:22 PM [facility] [id number] Endocrinology Progress note Date of Service 01/02/22 [...] Glucose, Capillary 01/01/2022 18:20:00 EDT 131 mg/dL NV 82-115 EKG EKG - Completed -- 12/30/21 [...] Weinstein on 12/24/2021-on prednisone. He resides at [facility] past 3 months. He presented to [facility] on December 30, 2021 due to a sudden onset of alteredmental status and shortness of breath. At [facility], he was noted to have acute kidney injury with creatinine 2.3 and elevated troponin at 3577. EKG revealed normal sinus rhythm without evidenceof ST elevation or depression. Negative for COVID-19 at [facility]. He was transferred to [facility] for further evaluation. Echocardiogram on December 30, 2021 revealed an EF of 45 to 50% and mild MR. Cardiac catheterization completed showing multivessel disease.Cardiothoracic surgery has been consulted for possible surgical myocardial vascularization. Endocrine consult placed by [facility] for diabetic management. Longstanding type II diabetic with A1c of 8.4%. Currently residing at [facility] with orders in place for [...] same inpatient. Last 24 Hours: Met w/ fishing hand; appreciate input and teaching. Current orders are in place for a 2-18 sliding scale with meals and at bedtime alone. Blood glucose this morning with the same 91. Discussed with CTS SPRING COVERER Katelynn. OHS work-up continues. No definitive date for CABG. Add low-dose metformin 500 mg twice daily. Hold off on SGLT2 until postop. GLP analog could be considered outpatient. Reintroduction of basal IP as needed. Discussed with bedside RN Will continue to follow while inpatient. Time Spent Total time spent 25 minutes Digitally Signed by CASPER MURRY on 01/02/2022 01:55 PM [facility] [id number] Nurse Progress note A student nurse administered medications and completed assessments on this patient under my supervision this evening. Nayeli Beckham RN Digitally Signed by KAVIN Beckham on 01/02/2022 01:02 AM [facility] CenterNoxmzlbt27-18-3906 Cardiology Progress note Date of Service 01/01/2022 [...] BILL ALMODOVAR MD on 01/01/2022 08:04 PM [facility] CenterDkrrpwbd52-40-5131 Cardiology Progress note Date of Service 01/01/2022 [...] BILL ALMODOVAR MD on 01/01/2022 08:04 PM [facility] CenterOiekutkx24-06-4968 Note I saw and evaluated the patient on 01/01/2022. I agree with the CLINICAL SPECIALIST note of 12/31/2021. The patient is [...] TRINY HERNANDEZ MD on 01/01/2022 10:53 AM [facility] [id number] Cardiothoracic surgery Consult note Date of Service [...] 12/24/2021-on prednison. He resides at [facility] for the past 3 months. He presented to [facility] on December 30, 2021 due to a sudden onset of altered mental status and shortness of breath. He endorses nonproductive cough. Denied any chest pain or syncope. At [facility], he was noted to have acute kidney injury with creatinine 2.3 and elevated troponinat 3577. EKG revealed normal sinus rhythm without evidence of ST elevation or depression. Negative for COVID-19 at [facility]. He was transferred to [facility] for further evaluation. Echocardiogram on December 30, 2021 revealed an EF of 45 to 50% and mild MR. Cardiac catheterization completed earlier today showing multivessel disease (official cath report pending at the time of this dictation). Cardiothoracic surgery has been consulted for possible surgical myocardial vascularization. Eliquis was discontinued per usp reports on September 01, 2021. Patient is [...] follows with Dr. Montgomery of nephrology in [place]. 5. AF (paroxysmal atrial fibrillation) Currently in [...] past medical history from EMR and transfer usp documentation, conducting [id number]-ck-[id number] visit with patient at bedside, and dictating [...] Patient denies Living arrangements: Currently lives at [email or web address] however lived at home [...] 17:21 EDT Digitally Signed by YIMI NEWELL APRN-CLINIC CHARGE NURSE on 12/31/2021 05:21 PM [facility] [id number] Endocrinology Consult note Date of Service 01/01/22 [...] 12/24/2021-on prednisone. He resides at [facility] forthe past 3 months. He presented to [facility] on December 30, 2021 due to a sudden onset of alteredmental status and shortness of breath. At [facility], he was noted to have acute kidney injury with creatinine 2.3 and elevated troponin at 3577. EKG revealed normal sinus rhythm without evidenceof ST elevation or depression. Negative for COVID-19 at [facility]. He was transferred to [facility] for further evaluation. Echocardiogram on December [...] Managed by his PCP. Currently resides at [facility]. He is unable to speak to his [...] not caring much for the food at [facility]. He reports weight of 156 [...] thyroid disease but does have orders per [facility] for levothyroxine 50 mcg daily [...] Subcutaneous, achs, NOW, 0, 01/01/22 8:24:00 EDT [employer] Diet Consult to Diabetes Education [...] Weinstein on 12/24/2021-on prednisone. [facility]. He presented to [facility] on December 30, 2021 due to a sudden onset of alteredmental status and shortness of breath. At [facility], he was noted to have acute kidney injury with creatinine 2.3 and elevated troponin at 3577. EKG revealed normal sinus rhythm without evidenceof ST elevation or depression. Negative for COVID-19 at [facility]. He was transferred to [facility] for further evaluation. Echocardiogram on December 30, 2021 revealed an EF of 45 to 50% and mild MR. Cardiac catheterization completed showing multivessel disease.Cardiothoracic surgery michael consulted for possible surgical myocardial vascularization. Endocrine consult placed by CTS for diabetic management. Longstanding type II diabetic with A1c of 8.4%. Currently residing at [facility] with orders in place for [...] by CASPER MURRY on 01/01/2022 03:38 PM [facility] CenterSyymtmno98-05-0302 Nephrology Progress note Date of Service 01/01/2022 [...] TAMIKA RODAS MD on 01/01/2022 09:57 AM [facility] [id number] Nephrology Progress note Date of Service 01/01/2022 [...] TAMIKA RODAS MD on 01/01/2022 09:57 AM [facility] [id number] Cardiothoracic surgery Consult note Date of Service [...] 12/24/2021-on prednison. He resides at [facility] for the past 3 months. He presented to [facility] on December 30, 2021 due to a sudden onset of altered mental status and shortness of breath. He endorses nonproductive cough. Denied any chest pain or syncope. At [facility], he was noted to have acute kidney injury with creatinine 2.3 and elevated troponinat 3577. EKG revealed normal sinus rhythm without evidence of ST elevation or depression. Negative for COVID-19 at [facility]. He was transferred to [facility] for further evaluation. Echocardiogram on December 30, 2021 revealed an EF of 45 to 50% and mild MR. Cardiac catheterization completed earlier today showing multivessel disease (official cath report pending at the time of this dictation). Cardiothoracic surgery has been consulted for possible surgical myocardial vascularization. Eliquis was discontinued per [facility] reports on September 01, 2021. Patient is [...] follows with Dr. Montgomery of nephrology in [place]. 5. AF (paroxysmal atrial fibrillation) Currently in [...] past medical history from EMR and transfer [facility] documentation, conducting [id number]-iw-[id number] visit with patient at bedside, and dictating [...] Patient denies Living arrangements: Currently lives at [email or web address] however lived at home [...] by YIMI NEWELL on 12/31/2021 05:21 PM [facility] CenterIkxcmhgk11-03-7404 Nephrology Progress note Date of Service 12/31/2021 [...] TAMIKA RODAS MD on 12/31/2021 11:26 AM [facility] CenterRltcxjjk17-37-1313 Note ORIGINAL EXAMINATION: ONE XRAY VIEW OF [...] 12/31/2021 8:13:17 AM Ordering Provider: FER AUSTIN [facility] [id number] History and physical note Date of Service 12/30/2021 Chief Complaint chest pain History of Present Illness This is a 81-year-old male, [facility] resident with prior history of atrial fibrillation, type 2diabetes, hypothyroidism, mood disorder, bilateral BKA's, hyperlipidemia who presented to due toaltered mental status. He was there diagnosed with non-ST elevation CO with troponin elevation of 3000 and uptrending. Patient also had an QUIN with creatinine 2.3. Currently patient denies any chest pain or palpitations. He denies prior history of coronary artery disease. However on further questioning does endorse he may have had a left heart catheterization at [facility] 1 year ago. Patient is a [...] 36 Hour Lab Data Assessment/Plan Non-ST elevation CO ? history of atrial fibrillation on Eliquis, [...] pursuing left heart catheterizationin light of his QUNI. We will hold all nephrotoxic agents. We will consult nephrology for optimization. Patient has history of atrial fibrillation but per usp has not been on his Eliquis or [...] DE LEÓN MD on 12/30/2021 10:03 AM [facility] CenterSxfkiaow86-30-8102 Evaluation + Plan noteExtracted from: Title:History and Physical Author:HASEEB DE LEÓN MD Date:12/30/21 Non-ST elevation CO ? history of atrial fibrillation on Eliquis, [...] has history of atrial fibrillation but per usp has not been on his Eliquis or [...] MILL Appointment Type:CV OV Hospital Follow Up [facility] 07-14-2022 Nephrology Consult note Date of Service 12/30/2021 Reason for Consultation Stage III CKD, needs clearance for cardiac catheterization. Referring Physician Dr. Hidalgo. History of Present Illness Mr. Modi is a very pleasant 81-year-old gentleman with past medical history of hypertension, diabetes, atrial fibrillation on anticoagulation, hypothyroidism who is a resident of nursing facility in [place]. Patient was sent to [facility] due to altered mental status. He was also having chest pain. Initial lab work done at [facility] showed elevated troponin in the range of 3000.Patient was diagnosed with acute non-STEMI. He was transferred to [facility] for further management. He also had acute renal failure with creatinine of around 2.3 at ER. Repeat blood work in [employer] showed that his creatinine has improved to 1.9. Patient does have history of CKD and follows with Dr. Montgomery in [place]. Dr. Montgomery does not have [facility] at [facility]. Renal consultation was requested for acute renal [...] diarrhea, abdominal pain. He has been at [facility] in [place] from July 2021. Per family he is going to be at the [facility] long-term. Patient developed c hest pain and altered mental status at [facility] for which he was sent to ER. Over there he was diagnosed with acute non-STEMI with elevated troponin levels and eventually transferred to [facility]. His home medication list includes JERO inhibitor. [facility] Review of all other systems is negative. [...] baseline creatinine, follows with Dr. Montgomery in [place] Hyperlipidemia Atrial fibrillation Procedure/Surgical History Cardiac catheterization [...] TAMIKA RODAS MD on 12/30/2021 11:57 AM [facility] [id number] History and physical note Date of Service 12/30/2021 Chief Complaint chest pain History of Present Illness This is a 81-year-old male, [facility] resident with prior history of atrial fibrillation, type 2diabetes, hypothyroidism, mood disorder, bilateral BKA's, hyperlipidemia who presented to due toaltered mental status. He was there diagnosed with non-ST elevation CO with troponin elevation of 3000 and uptrending. Patient also had an QUIN with creatinine 2.3. Currently patient denies any chest pain or palpitations. He denies prior history of coronary artery disease. However on further questioning does endorse he may have had a left heart catheterization at [facility] 1 year ago. Patient is a [...] 36 Hour Lab Data Assessment/Plan Non-ST elevation CO ? history of atrial fibrillation on Eliquis, [...] has history of atrial fibrillation but per usp has not been on his Eliquis or [...] DE LEÓN MD on 12/30/2021 10:03 AM [facility] [id number] Hospital Discharge instructions Follow Up Care 12/30/2021 04:59:03 With:HUNTER FALCON CLINICAL SPECIALIST-CLINIC CHARGE NURSE Address: [address] [place] [address] [place] [address]- When:01/17/2022 13:30:00 Comments:please obtain a CXR 1 hour prior to your appt. With:Discharge to [facility] LOC [phone] Address:Unknown When:1-2 days With:KARL HIDALGO MD Address: [address] [place] [address] [facility] [place] [address]- When:02/15/2022 10:00:00 With:Cardiac Rehab- [facility] Address: [facility] [employer] [employer] [address] [place] [address]- When: Unknown Comments:The Cardiac Rehab department will call you to schedule you for phase 2. We left you a brochure withinformation about cardiac rehab. If you have any questions please call [phone]. [facility] 08-24-2021 History of Present illness Narrative* Thu Roche RN - 02/09/2021 11:33 AM EDT Discharge instructions given to pt and family practice md at bedside. All questions answered. All belongingsat bedside. VSS. Pt resting comfortably, denies pain * Thu Roche RN - 02/09/2021 11:17 AM EDT Report called to Leighann VALE at [facility] * Thu Roche RN - 02/09/2021 11:08 AM EDT metallurgical laboratory assistant to bedside * Thu Roche RN - 02/09/2021 11:03 AM EDT Pt arrived to [place] [address]. Attached to quality assurance monitor chassis. VSS. medical assistant per diem updated * Lindsey Morales RN - 02/09/2021 8:33 AM EDT Notified anesthesia blood sugar is 284 * Jazmín Burton RN - 02/05/2021 4:[address] Vicente's office called and stated pt should not hold Eliquis nor Aspirin before surgery. Will include on pre-op instructions for facility. documented in this [facility] Work Phone: Anesthesiology Consult note* LINN [...] kidney disease), stage III / SNOMED CT 6889265942 / Confirmed CAD (coronary artery disease) / SNOMED CT 07582192 / Confirmed Diabetes / SNOMED CT 090757822 / Confirmed History of Singh's palsy / SNOMED CT 004632961 / Confirmed HLD (hyperlipidemia) / SNOMED CT 82786985 / Confirmed HTN (hypertension) / SNOMED CT 1963623828 / Confirmed Hypothyroid / SNOMED CT 99522960 / Confirmed QUIN (acute kidney injury) / SNOMED CT 48863002 / Confirmed Mood disorder / SNOMED CT 78184377 / Confirmed NSTEMI (non-ST elevated myocardial infarction) / SNOMED CT 64699437 / Confirmed AF (paroxysmal atrial fibrillation) / SNOMED CT 236490246 / Confirmed PVD (peripheral vascular disease) / SNOMED CT 1073146492 / Confirmed Giant cell arteritis / SNOMED CT 4392009424 / Confirmed, Active Problems (24) AF (paroxysmal atrial fibrillation) QUIN (acute kidney injury) CAD (coronary artery disease) Cataract CKD (chronic kidney disease), stage III COPD (chronic obstructive pulmonary disease) Depression Diabetes DM (diabetes mellitus) Giant cell arteritis Giant cell arteritis syndrome Glasses Heart disease High blood pressure History of Singh's palsy HLD (hyperlipidemia) HTN (hypertension) Hypothyroid Kidney disease CO (myocardial infarction) Mood disorder NSTEMI (non-ST elevated myocardial infarction) PVD (peripheral vascular disease) Tachycardia Histories Past Medical History: No active or resolved past medical history items have been selected or recorded. Family History: No family history items have been selected or recorded. Procedure history: Amputation ([id number]) in 2020 at 79 Years. Comments: 07/12/2021 14:23 Maria Esther Navarro RN Left below the knee Amputation ([id number]) in 2020 at 79 Years. Comments: 07/12/2021 14:24 Maria Esther Navarro RN right below the knee amputation Catheter ([id number]) in 2020 at 79 Years. Comments: 07/12/2021 14:25 Maria Esther Navarro RN Temporary dialysis cath None ([id number]). 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 Patient Dressed In Hospital gown [...] On and Limits Checked Nail Bed Color [place] Capillary Refill < 2 seconds Heart Sounds [...] Warm Temperature All Extremities Warm Skin Description [place], Normal for ethnicity, Dry Skin Integrity Pressure points intact Skin Turgor Elastic Mucous Membrane Color [place] Mucous Membrane Description Moist Sensory Perception Dre [...] Rhythm Sinus rhythm Monitoring Lead II, V1/MCL1 DC Interval 0.17 second(s) QRS Duration 0.12 second(s) [...] Transport Mode Order Detail MTT with Monitor Cloth Cutting Inspector Details Form Cloth Cutting Inspector Details Form 01/05/2022 0:28 EDT Skin Assessment [...] Transport Mode Order Detail MTT with Monitor Cloth Cutting Inspector Details Form Cloth Cutting Inspector Details Form 01/04/2022 23:29 EDT heparin Begin [...] On and Limits Checked Nail Bed Color [place] Capillary Refill < 2 seconds Heart Sounds ICU S1S2 Heart Rhythm Regular Radial Pulse, Left 2+ Normal Radial Pulse, Right 2+ Normal Popliteal Pulse, Left 1+ Thready Popliteal Pulse, Right 1+ Thready Edema Generalized None Cardiac Rhythm Sinus rhythm Monitoring Lead II, V1/MCL1 DC Interval 0.18 second(s) QRS Duration 0.12 second(s) QT Interval 0.47 second(s) QTc Interval 0.48 second(s) Alarms On and Functional Yes Respirations Unlabored Respiratory Pattern Regular Breath Sounds Auscultated Anterior only All Lobes Breath Sounds Clear Oxygen Therapy Room air Abdomen Description Non-distended, Symmetric, Soft Abdomen Palpation Non-Tender Bowel Sounds All Quadrants Present Urinary Elimination Voiding, no difficulties All Extremity Description [place], Normal for ethnicity Skin Temperature Warm Temperature All Extremities Warm Skin Description [place], Normal for ethnicity Mucous Membrane Color [place] Mucous Membrane Description Moist Leg Bilateral Skin [...] On and Limits Checked Nail Bed Color [place] Capillary Refill < 2 seconds Heart Sounds ICU S1S2 Heart Rhythm Regular Radial Pulse, Left 2+ Normal Radial Pulse, Right 2+ Normal Popliteal Pulse, Left 1+ Thready Popliteal Pulse, Right 1+ Thready Edema Generalized None Cardiac Rhythm Sinus rhythm Monitoring Lead II, V1/MCL1 DC Interval 0.19 second(s) QRS Duration 0.12 second(s) [...] Facial Movement Symmetric resting/crying All Extremity Description [place], Normal for ethnicity Skin Temperature Warm Temperature All Extremities Warm Skin Description [place], Normal for ethnicity Skin Integrity Pressure points intact Skin Turgor Elastic Mucous Membrane Color [place] Mucous Membrane Description Moist Sensory Perception Dre [...] Symptoms Bruising Skin Temperature Warm Skin Description [place], Normal for ethnicity Skin Integrity Intact Skin Turgor Elastic Mucous Membrane Color [place] Mucous Membrane Description Moist Sensory Perception Dre [...] On and Limits Checked Nail Bed Color [place] Capillary Refill < 2 seconds Heart Sounds [...] Facial Movement Symmetric resting/crying All Extremity Description [place], Normal for ethnicity Skin Temperature Warm Temperature All Extremities Warm Skin Description [place], Normal for ethnicity Skin Integrity Pressure points intact Skin Turgor Non-Elastic Mucous Membrane Color [place] Mucous Membrane Description Moist Leg Bilateral Skin [...] Rhythm Sinus rhythm Monitoring Lead III, V1/MCL1 DC Interval 0.20 second(s) QRS Duration 0.09 second(s) [...] mEq predniSONE 10 mg mg vitamin A 23715 unit(s) unit(s) 01/04/2022 8:39 EDT Heart Rate Monitored 59 bpm LOW Reason For Taking VItal Signs Routine Primary Pain Intensity 0 Primary Pain Nonverbal Response Nods No Pain Scale Type 0-10 Pain scale Monitor Alarms On and Limits Checked Nail Bed Color [place] Capillary Refill < 2 seconds Heart Sounds [...] Facial Movement Symmetric resting/crying All Extremity Description [place], Normal for ethnicity Skin Temperature Warm Temperature All Extremities Warm Skin Description [place], Normal for ethnicity Skin Integrity Pressure points intact Skin Turgor Non-Elastic Mucous Membrane Color [place] Mucous Membrane Description Moist Leg Bilateral Wound [...] Transport Mode Order Detail MTT with Monitor Cloth Cutting Inspector Details Form Cloth Cutting Inspector Details Form 01/04/2022 7:11 EDT Blood Glucose, [...] Rhythm Sinus rhythm Monitoring Lead III, V1/MCL1 DC Interval 0.18 second(s) QRS Duration 0.09 second(s) [...] Type 0-10 Pain scale Nail Bed Color [place] Capillary Refill < 2 seconds Heart Sounds [...] Facial Movement Symmetric resting/crying All Extremity Description [place], Normal for ethnicity Skin Temperature Warm Temperature All Extremities Warm Skin Description Normal for ethnicity Skin Integrity Pressure points intact Skin Turgor Non-Elastic Mucous Membrane Color [place] Mucous Membrane Description Moist Leg Bilateral Skin [...] Rhythm Sinus rhythm Monitoring Lead III, V1/MCL1 DC Interval 0.20 second(s) QRS Duration 0.09 second(s) [...] Light Use Yes . Assessment and Plan [place] [employer]esthesi[employer] (ASA) physical status classification: [...] LINN RICHARD DO on 01/05/2022 07:59 AM [facility] Evaluation + Plan note Future Appointments Appointment Date:02/07/2022 01:00:00 PM Scheduled Provider:HUNTER FALCON Location:[facility] Appointment Type:CTS OV Post Op Follow Up Appointment Date:02/15/2022 10:00:00 AM Scheduled Provider: Location:[facility] Appointment Type:CV OV Hospital Follow Up Future Scheduled Tests Radiology* XR Chest 2 Views (PA & Lateral) 02/07/22 [facility] Evaluation note* Diagnosis Optic nerve edema- Primary Papilloedema, unspecified [facility] Vision changes- Primary Unspecified visual disturbance Photosensitivity Acute dermatitis due to solar radiation PVD (peripheral vascular disease) (HCC) Peripheral vascular disease, unspecified Type 2 diabetes mellitus with other specified complication, without long-term current use of insulin (HCC) 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 Encounter for long-term (current) use of steroids Vitamin D deficiency Unspecified vitamin D deficiency [facility] Diagnosis Onset Date Resolution Status Renal mass acute Calculous cholecystitis with obstruction resolved Choledocholithiasis resolved Cholecystostomy care acute Renal mass [facility] Work Phone: Evaluation note* Diagnosis Onset Date Resolution Status Renal mass acute Calculous cholecystitis with obstruction resolved Choledocholithiasis resolved Cholecystostomy care acute Renal mass acute Cholecystostomy care [facility] Work Phone: Evaluation note* Diagnosis Screening for genitourinary condition- Primary Screening for other and unspecified genitourinary condition Gross hematuria Left renal mass Unspecified disorder of kidney and ureter documented in this encounter [facility] note* Diagnosis Gross hematuria documented in this encounter [facility] note* Diagnosis Gross hematuria- Primary Screening for genitourinary condition Screening for other and unspecified genitourinary condition documented in this encounter [facility] note* Diagnosis Gross hematuria- Primary documented in this encounter [facility] note* Diagnosis Gross hematuria- Primary Left renal mass Unspecified disorder of kidney and ureter documented in this encounter [facility] noteNo assessment information [facility] Work Phone: Hospital course Narrative No data available for this section [facility] Hospital Discharge instructions* Instructions* Ammy Vicente MD [...] next day as directed. 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 Yes January 11, 2024 7:47am Advance Directive Response Recorded Date/ Time Do you have a Healthcare Power of Principal Trainer? Yes October 15, 2024 5:49pm Name of Medical Power of Principal Trainer angelic yoonamelia durán October 15, 2024 5:49pm Hospital Course Note HNO ID: [id number] Author: Emily Prescott DO Service: General Surgery [...] (more content not included)... Note HNO ID: [id number] Author: Teo chase (Res) DO Roger Service: [...] W/WO CONTRST 1+ BODY Nikolai Fisher PA-C [address] [place] [address] [facility] [place] [address] Referral ID Status Reason Start Date Expiration Date Visits Requested Visits Authorized [id number] Authorized Auto-Generat ed Referral 06/25/2024 07/18/2025 1 1 Specialty Diagnoses / Procedures Referred By Barb t Referred To Contact Ophthalmology Diagnoses Vision changes Photosensitivity Procedures CONSULT TO OPHTHALMOLOGY OFFICE/OUTPATIENT [facility] 60-74 MINUTES Shana Ga MD [address] [place] [address] Referral ID Status Reason Start Date Expiration Date Visits Requested Visits Authorized [id number] Authorized PCP Requested Referral 09/01/2022 09/01/2023 1 [...] 3 M FU June 06, 2024 3:30pm SKILLED NURSING LAB WORK June 17 1:00pm NEW CONCERN June 17, 2024 3:17pm LABWORK June 20, 2024 5: 00am SKILLED NURSING LAB WORK June 27, 2024 5:50am MONTHLY EXAM July 05, 2024 3 :48pm MONTHLY EXAM July 23, 2024 4 :43pm SKILLED NURSING LAB WORK July 24, 2024 4:00am LABWORK August 01, 2024 2:00pm LABWORK August 21, 2024 5:00 am 4 M FU September 06, 2024 1:3 8pm Reason for Visit Admit Date Fecal incontinence June 06, 2024 3:30pm S/P ERCP June 06, 2024 3:30pm Fecal incontinence September 06, 2024 1:3 8pm S/P ERCP September 06, 2024 1:3 8pm Chief Complaint Admit Date SKILLED NURSING LAB WORK June 17 1:00pm NEW CONCERN June 17, 2024 3:17pm LABWORK June 20, 2024 5: 00am SKILLED NURSING LAB WORK June 27, 2024 5:50am MONTHLY EXAM July 05, 2024 3 :48pm MONTHLY EXAM July 23, 2024 4 :43pm SKILLED NURSING LAB WORK July 24, 2024 4:00am LABWORK [...] Date LABWORK June 20, 2024 5: 00am SKILLED NURSING LAB WORK June 27, 2024 5:50am MONTHLY EXAM July 05, 2024 3 :48pm MONTHLY EXAM July 23, 2024 4 :43pm SKILLED NURSING LAB WORK July 24, 2024 4:00am LABWORK August 01, 2024 2:00pm LABWORK August 21, 2024 5:00 am MONTHLY EXAM September 03, 2024 6:1 1pm NEW CONCERN September 05, 2024 1:1 5pm 4 M FU September 06, 2024 1:3 8pm LABWORK September 18, 2024 5:00 am fall October 15, 2024 3:5 7pm Chief Complaint Admit Date MONTHLY EXAM July 23, 2024 4 :43pm SKILLED NURSING LAB WORK July 24, 2024 4:00am LABWORK August 01, 2024 2:00pm LABWORK August 21, 2024 5:00 am MONTHLY EXAM September 03, 2024 6:1 1pm NEW CONCERN September 05, 2024 1:1 5pm 4 M FU September 06, 2024 1:3 8pm LABWORK September 18, 2024 5:00 am fall October 15, 2024 3:5 7pm FU RI WANTED SOONER THAN DECEMBER SO DIDN'T WANT ACCOUNTING SOFTWARE SPECIALIST October 16, 2024 7:59am LABWORK October 23, 2024 5:00am Reason for Visit Admit Date Fecal incontinence September 06, 2024 1:3 8pm S/P ERCP September 06, 2024 1:3 8pm Atherosclerotic heart diseas e [place] coronary artery without angina pectoris October 16, [...] WANTED SOONER THAN DECEMBER SO DIDN'T WANT ACCOUNTING SOFTWARE SPECIALIST October 16, 2024 7:59am LABWORK October 23, 2024 5:00am SKILLED NURSING LAB WORK November 07, 2024 5:0 0am [...] WANTED SOONER THAN DECEMBER SO DIDN'T WANT ACCOUNTING SOFTWARE SPECIALIST October 16, 2024 7:59am LABWORK October 23, 2024 5:00am SKILLED NURSING LAB WORK November 07, 2024 5:0 0am LABWORK November 20, 2024 5:00a m Chief Complaint Admit Date LABWORK September 18, 2024 5:00 am Monthly Exam September 24, 2024 3:41 pm New Concern October 01, 2024 3:2 5pm fall October 15, 2024 3:5 7pm FU NH WANTED SOONER THAN DECEMBER SO DIDN'T WANT ACCOUNTING SOFTWARE SPECIALIST October 16, 2024 7:59am LABWORK October 23, 2024 5:00am SKILLED NURSING LAB WORK November 07, 2024 5:0 0am LABWORK November 20, 2024 5:00a m MONTHLY EXAM December 03, 2024 3:30 pm LABWOKR December 18, 2024 5:00a m Reason for Visit Admit Date Atherosclerotic heart diseas e [place] coronary artery without angina pectoris October 16, 2024 7:59am Essential hypertension October 16, 2024 7:59am Hyperlipidemia October 16, 2024 7:5 9am Paroxysmal atrial fibrillation September 7:59am Chief Complaint Admit Date fall October 15, 2024 3:5 7pm FU [place] WANTED SOONER THAN DECEMBER SO DIDN'T WANT ACCOUNTING SOFTWARE SPECIALIST October 16, 2024 7:59am LABWORK October 23, 2024 5:00am SKILLED NURSING LAB WORK November 07, 2024 5:0 0am LABWORK November 20, 2024 5:00a m MONTHLY EXAM December 03, 2024 3:30 pm LABWOKR December 18, 2024 5:00a m Monthly Exam December 24, 2024 5:38p m Chief Complaint Admit Date LABWORK October 23, 2024 5:00am SKILLED NURSING LAB WORK November 07, 2024 5:0 0am LABWORK November 20, 2024 5:00a m MONTHLY EXAM December 03, 2024 3:30 pm LABWOKR December 18, 2024 5:00a m Monthly Exam December 24, 2024 5:38p m SKILLED NURSING LAB WORK January 20, 2025 5 :00am SKILLED NURSING LAB WORK January 22, 2025 5 :00am SKILLED NURSING LAB WORK January 28, 2025 5:00am MONTHLY EXAM January 28, 2025 4: 15pm SKILLED NURSING LAB WORK February 04, 2025 4:00am Additional Source Comments (unrecognized sect ion and content) No Status Records FoundNo Status Records FoundNo Status Records FoundNo Status Records FoundNo Status Records FoundNo Status Records FoundNo Status Records FoundNo Status Records FoundNo Status Records FoundNo Status Records FoundNo Status Records Found INFORMATION SOURCE (unrecogn ized section and content) DATE CREATED AUTHOR 05/19/2020 [facility] DATE CREATED AUTHOR AUTHOR'S ORGANIZ ATION 05/21/2020 [facility] DATE CREATED AUTHOR AUTHOR'S ORGANIZ ATION 02/11/2021 [facility] DATE CREATED AUTHOR AUTHOR'S ORGANIZ ATION 08/05/2021 [facility] DATE CREATED AUTHOR AUTHOR'S ORGANIZ ATION 09/07/2021 [facility] DATE CREATED AUTHOR AUTHOR'S ORGANIZ ATION 04/15/2023 [facility] DATE CREATED AUTHOR AUTHOR'S ORGANIZ ATION 01/11/2024 [facility] ([place]) DATE CREATED AUTHOR AUTHOR'S ORGANIZ ATION 10/06/2024 [facility] DATE CREATED AUTHOR AUTHOR'S ORGANIZ ATION 01/15/2025 [facility] DATE CREATED AUTHOR AUTHOR'S ORGANIZ ATION 01/21/2025 [facility] DATE CREATED AUTHOR AUTHOR'S ORGANIZ ATION 04/27/2025 [facility] Scheduled Active and Recently Administ ered Medications [...] disease or cirrhosis., Pre-op (day of surgery) 0907 (Given - [...] of surgery) 0908 (Given - Provid er: Lnidsey Morales RN) tropicamide (MYDRIACYL) 1 % ophthalmic [...] Morales, RN)0925 (Given - Provider: Lindsey Morales, RN) Continuous Medication Order 02/07/2021 02/08/2021 02/09/2021 [...] or prosecute any alcohol or drug abuse patient.[facility] the event this information is protected by the Federal Confidentiality of Alcohol and Drug Abuse Patient Records regulations: The Federal rules restrict any use of the information to criminally investigate or prosecute any alcohol or drug abuse patient.[facility] the event this information is protected by the Federal Confidentiality of Alcohol and Drug Abuse Patient Records regulations: The Federal rules restrict any use of the information to criminally investigate or prosecute any alcohol or drug abuse patient.[facility] the event this information is protected by the Federal Confidentiality of Alcohol and Drug Abuse Patient Records regulations: The Federal rules restrict any use of the information to criminally investigate or prosecute any alcohol or drug abuse patient.[facility] the event this information is protected by the Federal Confidentiality of Alcohol and Drug Abuse Patient Records regulations: The Federal rules restrict any use of the information to criminally investigate or prosecute any alcohol or drug abuse patient.[facility] the event this information is protected by the Federal Confidentiality of Alcohol and Drug Abuse Patient Records regulations: The Federal rules restrict any use of the information to criminally investigate or prosecute any alcohol or drug abuse patient.[facility] the event this information is protected by the Federal Confidentiality of Alcohol and Drug Abuse Patient Records regulations: The Federal rules restrict any use of the information to criminally investigate or prosecute any alcohol or drug abuse patient.[facility] the event this information is protected by the Federal Confidentiality of Alcohol and Drug Abuse Patient Records regulations: The Federal rules restrict any use of the information to criminally investigate or prosecute any alcohol or drug abuse patient.[facility] the event this information is protected by the Federal Confidentiality of Alcohol and Drug Abuse Patient Records regulations: The Federal rules restrict any use of the information to criminally investigate or prosecute any alcohol or drug abuse patient.[facility] the event this information is protected by the Federal Confidentiality of Alcohol and Drug Abuse Patient Records regulations: The Federal rules restrict any use of the information to criminally investigate or prosecute any alcohol or drug abuse patient.[facility] the event this information is protected by the Federal Confidentiality of Alcohol and Drug Abuse Patient Records regulations: The Federal rules restrict any use of the information to criminally investigate or prosecute any alcohol or drug abuse patient.[facility] the event this information is protected by the Federal Confidentiality of Alcohol and Drug Abuse Patient Records regulations: The Federal rules restrict any use of the information to criminally investigate or prosecute any alcohol or drug abuse patient.[facility] the event this information is protected by the Federal Confidentiality of Alcohol and Drug Abuse Patient Records regulations: The Federal rules restrict any use of the information to criminally investigate or prosecute any alcohol or drug abuse patient.[facility] the event this information is protected by the Federal Confidentiality of Alcohol and Drug Abuse Patient Records regulations: The Federal rules restrict any use of the information to criminally investigate or prosecute any alcohol or drug abuse patient.[facility] Care Teams (unrecognized sec tion [...] 2024 End: September 03, 2024 Christina Whipple SPRING COVERER, SPRING COVERER-C Attending Provider Active Start: September 03, 2024 End: September 03, 2024 Team Status: Inactive Member Role Status Dates Dr. Diana Salmeron MD Primary Care Provider Active Start: September 05, 2024 End: September 05, 2024 Christina Whipple SPRING COVERER, SPRING COVERER-C Attending Provider Active Start: September 05, 2024 [...] Active Start: November 07, 2024 Christina DAVID NP-C Attending [...] End: June 17, 2024 Christina Whipple NP SPRING COVERER-C Attending Provider Active Start: June 17, 2024 [...] End: July 05, 2024 Christina Whipple NP SPRING COVERER-C Attending Provider Active Start: July 05, 2024 End: July 05, 2024 Plc Programmer Relationship Specialty Start Date End Date Dexter Reyes Chi [address] [id number] PCP - General Gerontology 12/06/19 Ryan Rodrigues MD [address] [place] [address] Infectious Diseases 12/06/19 Yadi White, DO [facility] [place] [address] Urology 04/28/20 Plc Programmer Relationship Specialty Start Date End Date Diana Salmeron MD [address] [place], [place] [id number] PCP - General Internal Medicine 09/01/22 Ryan Rodrigues MD [address] [place] [address] Infectious Diseases 12/06/19 Yadi White, [address] [address] Urology 04/28/20 Isac Lcuas [address] [place], [place] [address] Referring Ophthalmology 06/27/22 Plc Programmer Relationship Specialty Start Date End Date Diana Salmeron MD [address] [place], [place] [address] PCP - General Internal Medicine 09/01/22 Ryan Rodrigues MD [address] [facility] [place] [phone] Infectious Diseases 12/06/19 Yadi White, DO [address] [place] [address] Urology 04/28/20 Isac Lucas [address] [place], [place] [address] Referring Ophthalmology 06/27/22 Plc Programmer Relationship Specialty Start Date End Date Diana Salmeron MD [address] [place], [place] [address] PCP - General Internal Medicine 09/01/22 Ryan Rodrigues MD [address] [facility] [place] [address] Infectious Diseases 12/06/19 Yadi White [address] [place] [address] Urology 04/28/20 Isac Lucas [address] [place], [place] [address] Referring Ophthalmology 06/27/22 Team Status: Active Member [...] MD Attending Provider, Referring P rovider Active Plc Programmer Relationship Specialty Start Date End Date Diana Salmeron MD [address] [place] [address] PCP - General Internal Medicine 09/01/22 Ryan Rodrigues MD [address] [facility] [facility] [place] [phone] Infectious Diseases 12/06/19 Yadi White DO [address] [place] [address] Urology 04/28/20 Isac Lucas [address] [place] [address] Referring Ophthalmology 06/27/22 Plc Programmer Relationship Specialty Start Date End Date Diana Salmeron MD [address] [id number] PCP - General Internal Medicine 09/01/22 Ryan Rodrigues MD [address] [place] [address] Infectious Diseases 12/06/19 Yadi White DO [address] [place] [address] Urology 04/28/20 Isac Lucas [address] [place] [address] Referring Ophthalmology 06/27/22 Plc Programmer Relationship Specialty Start Date End Date Diana Salmeron MD [address] [facility] [address] [place], [place] [address] PCP - General Internal Medicine 09/01/22 Ryan Rodrigues MD [address] [facility] [place] [address] Infectious Diseases 12/06/19 Yadi White DO [facility] [place] [address] Urology 04/28/20 Isac Lucas [address] [place] [address] Referring Ophthalmology 06/27/22 Plc Programmer Relationship Specialty Start Date End Date Diana Salmeron MD [address] [facility] [address] [address] [place], [place] [id number] PCP - General Internal Medicine 09/01/22 yRan Rodrigues MD [address] [place] [address] Infectious Diseases 12/06/19 Yadi White DO [address] [place] [address] Urology 04/28/20 Isac Lucas [address] [place], [place] [address] Referring Ophthalmology 06/27/22 Plc Programmer Relationship Specialty Start Date End Date Diana Salmeron MD [address] [facility] [address] [place] [id number] PCP - General Internal Medicine 09/01/22 Ryan Rodrigues MD [address] [place] [address] Infectious Diseases 12/06/19 Yadi White DO [address] [place] [address] Urology 04/28/20 Isac Lucas [address] [place] [address] Referring Ophthalmology 06/27/22 Team Status: Inactive Member [...] Attending Provider Active Start: September 18, 2024 Plc Programmer Relationship Specialty Start Date End Date Diana Salmeron MD [address] [facility] [facility] [place], [place] [address] PCP - General Internal Medicine 09/01/22 Ryan Rodrigues MD [address] [place] [address] [facility] [place] [phone] Infectious Diseases 12/06/19 Yadi White DO [address] [place] [address] Urology 04/28/20 Isac Lucas [address] [place] [address] Referring Ophthalmology 06/27/22 Plc Programmer Relationship Specialty Start Date End Date Diana Salmeron MD [address] [facility] [address] [facility] [place] [address] PCP - General Internal Medicine 09/01/22 Ryan Rodrigues MD [address] [facility] [place] [address] Infectious Diseases 12/06/19 Yadi White DO [address] [place] [address] Urology 04/28/20 Isac Lucas [address] [place] [address] Referring Ophthalmology 06/27/22 Team Status: Inactive Member [...] End: October 01, 2024 Christina Whipple NP, SPRING COVERER-C Attending Provider Active Start: October 01, 2024 [...] 2024 End: September 03, 2024 Christina Whipple SPRING COVERER, SPRING COVERER-C Attending Provider Active Start: September 03, 2024 End: September 03, 2024 Team Status: Inactive Member Role/Relationship Status Dates Dr. Diana Salmeron MD Primary Care Provider Active Start: September 05, 2024 End: September 05, 2024 Christina Whipple SPRING COVERER, SPRING COVERER-C Attending Provider Active Start: September 05, 2024 [...] End: October 01, 2024 Christina Whipple NP, SPRING COVERER-C Attending Provider Active Start: October 01, 2024 [...] 01, 2024 End: October 01, 2024 Christina Tickton SPRING COVERER, SPRING COVERER-C Attending Provider Active Start: October 01, 2024 [...] Attending Provider Active Start: December 18, 2024 Plc Programmer Relationship Specialty Start Date End Date Diana Salmeron MD [address] [facility] [address] [place] [address] PCP - General Internal Medicine 09/01/22 Ryan Rodrigues MD [address] [place] [address] Infectious Diseases 12/06/19 Yadi White DO [address] [place], [place] [address] Urology 04/28/20 Isac Lucas [address] [place], [place] [id number] Referring Ophthalmology 06/27/22 Team Status: Inactive Member [...] End: December 24, 2024 Christina Whipple NP, NP-C Attending Provider Active Start: December 24, 2024 [...] End: December 24, 2024 Christina Whipple NP SPRING COVERER-C Attending Provider Active Start: December 24, 2024 [...] Inactive Member Role/Relationship Status Dates Dr. Diana Slameron MD Primary Care Provider Active Start: January [...] Member Role: Primary Care Physician Address: Address: [address] [place] [address] Care Team Related Persons Name: ANGELIC SUE Reason for Visit (unrecogniz ed section and content) Reason Comments Visual Disturbance Ref by rheum today. Poor vision OD suddenly, about 1 month after cataract surgery pert pt Reason Comments Patient Update Reason Comments Blood In Urine Reason Comments Radiology CT Specialty Diagnoses / Procedures Referred By Barb durán Referred To Contact CT IMAGING Diagnoses Gross hematuria Procedures CT UROGRAM WO/W IVCON CT ABD & PELVIS W/WO CONTRST 1+ BODY Nikolai Fisher PA-C [id number] [place] [id number] [facility] [place] [id number] Referral ID Status Reason Start Date Expiration Date V isits Requested Visits Authorized [id number] Closed Auto-Generate d Referral 06/25/2024 07/18/2025 1 [...] BE BASED ON THE PRIMARY CLINICAL RECORDS. [facility]. provides no warranty or guarantee of the accuracy or completeness of information in this document.
[2025-06-06 07:47] LABS: Hematocrit 39.8 % (40-54); Hemoglobin 12.7 g/dL (13.0-16.5); Mean Corp Hgb Conc 31.9 g/dL (32-36); Mean Corpuscular Volume 89.0 fL (80-94); Mean Platelet Vol. 11.5 fl (6.2-12.0); Platelet Count 196 K/mm3 (150-450); RBC Distribution Width CV 14.7 % (11.6-14.6); RBC Distribution Width SD 47.8 fl (35.1-43.9); Red Blood Count 4.47 M/mm3 (4.6-6.2); White Blood Count 7.5 K/mm3 (4.4-11.0)
[2025-06-06 08:00] LABS: PTHIN 93 pg/mL (11-61)
[2025-06-06 08:02] LABS: Albumin, Serum 3.0 g/dL (3.4-4.8); Anion Gap 11 (5-15); BUN 25 mg/dL (4-19); BUN/Creat Ratio 12.1 RATIO (10-20); Calcium,Total 7.9 mg/dL (7.6-11.0); Carbon Dioxide 21.4 mmol/L (21.0-32.0); Chloride 104 mmol/L (98-108); Glucose 148 mg/dL (70-99); Potassium 5.1 mmol/L (3.3-5.1)
== END ==
LOC: OLS.WHLEAS 05:00
PROVIDERS: PCP Internal Medicine; Visit Provider Internal Medicine
DX: J96.11 Chronic respiratory failure with hypoxia (principal); E11.40 Type 2 diabetes mellitus with diabetic neuropathy, unspecified; F03.90 Unspecified dementia, unspecified severity, without behavioral disturbance, psychotic disturbance, mood disturbance, and anxiety; N18.32 Chronic kidney disease, stage 3b
CPT/HCPCS: 36415; 80069; 83970; 85027

== ENCOUNTER → 2025-06-17 05:00 | Outpatient (REF) | payer MEDICAID, MEDICARE, SELFPAY ==
--- OUTSIDE RECORDS SUMMARY | 2025-06-17 04:09 | XMS RPT_ITS | CCD ---
Author Organization [facility] Care Team Providers Care Senior Firmware Engineer Name Role Phone Eric LATHAM, Papa Primary [...] Unavailable Diana Salmeron MD Primary Care Provider [phone] Dr. Dexter Reyes Chi Primary Care Provider Dr. Bren Lopes Admit Provider Dr. Bren Lopes Other Provider Dr. Dwayne Palumbo Other Provider [phone] Jesse Haywood Attending Provider Dr. Jesse Haywood Other Provider Dr. Dwayne Palumbo Attending Provider [phone] Friend, Dr. Sauceda Attending Provider Dr. Jesse [...] Rojas MD Attending Provider Unavaila ble Tickton PRINTED CIRCUIT BOARDS SOLDER LEVELER-C, Christina Attending Provider Dr. Victor M Rojas [...] Rojas MD Attending Provider Unavaila ble [place] PRINTED CIRCUIT BOARDS SOLDER LEVELER-C, Christina Attending Provider Dr. Jesse Angel DO Emergency Provider Dr. Diana Salmeron MD Primary Care Provider Victor M Rojas MD Attending Provider Unavaila ble Sole PRINTED CIRCUIT BOARDS SOLDER LEVELER-C, Christina Attending Provider Dr. Jesse Angel DO Attending Provider Foster GARLAND, Lauren Bryan Attending Provider Sole PRINTED CIRCUIT BOARDS SOLDER LEVELER-C, Christina Attending Provider Dr. Diana Salmeron MD Primary Care Provider Victor M Rojas MD Attending Provider UnavailDr. Victor M Meneses MD Attending Provider Dr. Diana Salmeron MD Primary Care Provider Victor M Rojas MD Attending Provider Unavaila ble Sole PRINTED CIRCUIT BOARDS SOLDER LEVELER-C, Christina Attending Provider Dr. Diana Salmeron MD Referring Provider [phone] GAYLA CLINE Attending Unavailable LATOUF, BUTROS Primary Care Unavailable ERIC MONTGOMERY I Attending Unavailable DIANA SALMERON MD Consulting Unavailable ERIC MONTGOMERY I Admitting Unavailable ERIC MONTGOMERY I Primary Care Unavailable PROVIDER, UNKNOWN Consulting Unavailable PROVIDER, UNKNOWN Consulting Unavailable PROVIDER, UNKNOWN Consulting Unavailable Dr. Diana Salmeron MD Primary Care Provider Victor M Rojas MD Attending Provider UnavailDr. Victor M Meneses MD Attending Provider Sole PRINTED CIRCUIT BOARDS SOLDER LEVELER-CChristina Attending Provider Dr. Diana Salmeron MD Primary Care Provider [phone] Victor M Rojas MD Referring Provider Unavaila [...] Unavailable Latouf, Butros Primary Care Unavailable Sole PRINTED CIRCUIT BOARDS SOLDER LEVELER, Christina Attending Unavailable Latouf, Butros Primary Care Unavailable Kacie Simon Attending Unavailable Latouf, Butros Referring Unavailable Latouf, Butros Primary Care Unavailable Oleghe, Efewongbe Attending Unavailable Oleghe, Efewongbe Attending Unavailable Latouf, Butros Primary Care Unavailable Sole PRINTED CIRCUIT BOARDS SOLDER LEVELER, Christina Attending Unavailable Latouf, Butros Primary Care [...] Unavailable Latouf, Butros Primary Care Unavailable Sole PRINTED CIRCUIT BOARDS SOLDER LEVELER, Christina Attending Unavailable Sole PRINTED CIRCUIT BOARDS SOLDER LEVELER, Christina Attending Unavailable Latouf, Butros Primary Care [...] MG DAILY@0800 Sunitha 25th, 2020 7:37am 10-12-[address] [facility] ([id number]) 0 10/12/2019 Active Comment on above: Aspirin Aspirin E.C. Active 81 MG DAILY@0800 October 12, 2019 7:37am 10-12-[address] [facility] ([id number]) Take 81 mg by mouth. atorvastatin 40 [...] Start: 08-19-2019 take 2 tablets by mo [facility] once daily levothyroxine (SYNTHROID) 25 mcg [...] (BACTROBAN) 2 % ointment 01/14/2023 Active nystatin 182753 unt/ml topical cream (10 sources) Polyene Antifungal [...] October 12, 2019 7:45am polyethylene glycol 3350 82056 mg powder for oral solution (20 sources) [...] pen injector 3 mg. 01/13/2025 Active vit C,K-Lz-tzhyw-lutein-zeax an (PRESERVISION AREDS-2) 250-90-40-1 mg (12 sources) Start: 12-09-2020 vit C,E-Zn-gyroscopic engineering technician ww-nrsyie-zqcyrs (PRESERVISION AREDS-2) 250-90-40-1 mg Take 1 Each by mouth. 12/09/2020 Active Start: 12-09-2020 vit C,E-Zn-gyroscopic engineering technician gr-gmjywi-muvymd (PRESERVISION AREDS-2) 250-90-40-1 mg Take 1 Each [...] 05-18-2020 take 1000 [IU] by mo [facility] once daily Cholecalciferol (Vitamin D3) Active [...] DAILY docusate sodium 50 mg / sennosides, shelter 8.6 mg oral tablet (1 source) take [...] 7:40am nerve pain take 1 capsule by [facility] once daily for pain gabapentin (NEURONTIN) [...] Coronary atherosclerosis; Translations: [Atherosclerotic heart disease of [place] coronary artery without angina pectoris] Onset: 12-31-2021 [...] Long-term current use of systemic steroid; Translations: [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] Episodic Other aftercare (5 sources) Drug therapy finding; Translations: [Other fci (current) drug therapy] 12-25-2022 Episodic Other aftercare (7 sources) Long-term current use of amiodarone; Translations: [Other zinc skimmer (current) drug therapy] 05-16-2022 Episodic Other aftercare (1 source) Other zinc skimmer (current) drug therapy; Translations: [Other fci (current) drug therapy] Onset: 04-17-2025 Episodic Other [...] Other nervous system disorders (1 source) 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 He currently resides at [facility]. He reports feeling well overall, with no [...] air Intake Visit Reasons: 6 M FU Meteorology Instructor Required: No Accompanied by: Caregiver Is patient [...] pulmonary disease) Obesity Atherosclerotic heart disease of [place] coronary artery without angina pectoris Paroxysmal atrial [...] H/O endart (more content not included)... Normal [facility] Anion gap in Serum or Plasma Ordered By: Victor M Rojas on 02-11-2025 Anion gap [Moles/Vol] 12 mmol/L 5-15 [facility] BUN/creatinine ratioOrdered By: Victor M Rojas on 02-11-2025 Urea nitrogen/Creatinine [Mass ratio] 21.9 mg/mg High 10-[address] [facility] Carbon dioxide, total [Moles /volume] in Central venous bloodOrdered By: Victor M Rojas on 02-11-2025 CO2 [Moles/Vol] 19.2 mmol/L Low 21.0-32.[address] [facility] Chloride assayOrdered By: Stefan Rojas on 02-11-2025 Chloride [Moles/Vol] 108 mmol/L 98-108 [facility] Glomerular filtration rate ( GFR) estimation/1.73 sq m using serum, plasma, or whole bOrdered By: Victor M Rojas on 02-11-2025 GFR/1.73 sq M.predicted among non-blacks MDRD (S/P/Bld) [Vol rate/Area] 46 mL/min/{1.73_m2} Low >60 [facility] Comment on above: mL/min/1.73m2 CKD-EP I Creatinine Equation (2020) Potassium measurement (mass/ volume)Ordered By: Victor M Rojas on 02-11-2025 Potassium (Unsp spec) [Mass/Vol] 4.5 mmol/L 3.3-5.[address] [facility] Serum creatinine measurement (mass/volume)Ordered By: Victor M Rojas on 02-11-2025 Creatinine [Mass/Vol] 1.51 mg/dL High 0.70-1.20 [facility] Serum glucose measurement (m ass/volume)Ordered By: Victor M Rojas on 02-11-2025 Glucose [Mass/Vol] 148 mg/dL High 70-99 [facility] Serum or plasma albumin akash urement (mass/volume)Ordered By: Victor M Rojas on 02-11-2025 Albumin [Mass/Vol] 3.3 g/dL Low 3.4-4.8 [facility] Serum or plasma calcium akash urement (mass/volume)Ordered By: Victor M Rojas on 02-11-2025 Calcium [Mass/Vol] 8.2 mg/dL 7.6-11.0 [facility] Serum or plasma urea nitroge n measurement (mass/volume)Ordered By: Victor M Rojas on 02-11-2025 Urea nitrogen [Mass/Vol] 33 mg/dL High 4-[address] [facility] Sodium levelOrdered By: Brandon Rojas on 02-11-2025 Sodium [Moles/Vol] 139 mmol/L 133-145 [facility] Anion gap in Serum or Plasma Ordered By: Victor M Rojas on 02-04-2025 Anion gap [Moles/Vol] 13 mmol/L 5-15 [facility] BUN/creatinine ratioOrdered By: Victor M Rojas on 02-04-2025 Urea nitrogen/Creatinine [Mass ratio] 15.7 mg/mg 10-[address] [facility] Carbon dioxide, total [Moles /volume] in Central venous bloodOrdered By: Victor M Rojas on 02-04-2025 CO2 [Moles/Vol] 19.7 mmol/L Low 21.0-32.[address] [facility] Chloride assayOrdered By: Stefan Rojas on 02-04-2025 Chloride [Moles/Vol] 106 mmol/L 98-108 [facility] Glomerular filtration rate ( GFR) estimation/1.73 sq m using serum, plasma, or whole bOrdered By: Victor M Rojas on 02-04-2025 GFR/1.73 sq M.predicted among non-blacks MDRD (S/P/Bld) [Vol rate/Area] 41 mL/min/{1.73_m2} Low >60 [facility] Comment on above: mL/min/1.73m2 CKD-EP I Creatinine Equation (2020) Potassium measurement (mass/ volume)Ordered By: Victor M Rojas on 02-04-2025 Potassium (Unsp spec) [Mass/Vol] 4.2 mmol/L 3.3-5.[address] [facility] Serum creatinine measurement (mass/volume)Ordered By: Victor M Rojas on 02-04-2025 Creatinine [Mass/Vol] 1.64 mg/dL High 0.70-1.20 [facility] Serum glucose measurement (m ass/volume)Ordered By: Victor M Rojas on 02-04-2025 Glucose [Mass/Vol] 76 mg/dL 70-99 [facility] Serum or plasma albumin akash urement (mass/volume)Ordered By: Victor M Rojas on 02-04-2025 Albumin [Mass/Vol] 3.4 g/dL 3.4-4.8 [facility] Serum or plasma calcium akash urement (mass/volume)Ordered By: Victor M Rojas on 02-04-2025 Calcium [Mass/Vol] 8.4 mg/dL 7.6-11.0 [facility] Serum or plasma urea nitroge n measurement (mass/volume)Ordered By: Victor M Rojas on 02-04-2025 Urea nitrogen [Mass/Vol] 26 mg/dL High 4-[address] [facility] Sodium levelOrdered By: Brandon Rojas on 02-04-2025 Sodium [Moles/Vol] 139 mmol/L 133-145 [facility] Anion gap in Serum or Plasma Ordered By: Victor M Rojas on 01-28-2025 Anion gap [Moles/Vol] 12 mmol/L 5-15 [facility] BUN/creatinine ratioOrdered By: Victor M Rojas on 01-28-2025 Urea nitrogen/Creatinine [Mass ratio] 15.7 mg/mg 10-[address] [facility] Carbon dioxide, total [Moles /volume] in Central venous bloodOrdered By: Victor M Rojas on 01-28-2025 CO2 [Moles/Vol] 19.7 mmol/L Low 21.0-32.[address] [facility] Chloride assayOrdered By: Stefan Rojas on 01-28-2025 Chloride [Moles/Vol] 106 mmol/L 98-108 [facility] Glomerular filtration rate ( GFR) estimation/1.73 sq m using serum, plasma, or whole bOrdered By: Victor M Rojas on 01-28-2025 GFR/1.73 sq M.predicted among non-blacks MDRD (S/P/Bld) [Vol rate/Area] 38 mL/min/{1.73_m2} Low >60 [facility] Comment on above: mL/min/1.73m2 CKD-EP I Creatinine Equation (2020) Potassium measurement (mass/ volume)Ordered By: Victor M Rojas on 01-28-2025 Potassium (Unsp spec) [Mass/Vol] 4.1 mmol/L 3.3-5.[address] [facility] Serum creatinine measurement (mass/volume)Ordered By: Victor M Rojas on 01-28-2025 Creatinine [Mass/Vol] 1.74 mg/dL High 0.70-1.20 [facility] Serum glucose measurement (m ass/volume)Ordered By: Victor M Rojas on 01-28-2025 Glucose [Mass/Vol] 137 mg/dL High 70-99 [facility] Serum or plasma albumin akash urement (mass/volume)Ordered By: Victor M Rojas on 01-28-2025 Albumin [Mass/Vol] 3.2 g/dL Low 3.4-4.8 [facility] Serum or plasma calcium akash urement (mass/volume)Ordered By: Victor M Rojas on 01-28-2025 Calcium [Mass/Vol] 8.1 mg/dL 7.6-11.0 [facility] Serum or plasma urea nitroge n measurement (mass/volume)Ordered By: Victor M Rojas on 01-28-2025 Urea nitrogen [Mass/Vol] 27 mg/dL High 4-[address] [facility] Sodium levelOrdered By: Brandon Rojas on 01-28-2025 Sodium [Moles/Vol] 138 mmol/L 133-145 [facility] Anion gap in Serum or Plasma Ordered By: Victor M Rojas on 01-22-2025 Anion gap [Moles/Vol] 15 mmol/L 5-15 [facility] BUN/creatinine ratioOrdered By: Victor M Rojas on 01-22-2025 Urea nitrogen/Creatinine [Mass ratio] 24.3 mg/mg High 10-[address] [facility] Carbon dioxide, total [Moles /volume] in Central venous bloodOrdered By: Victor M Rojas on 01-22-2025 CO2 [Moles/Vol] 18.3 mmol/L Low 21.0-32.[address] [facility] Chloride assayOrdered By: Stefan Rojas on 01-22-2025 Chloride [Moles/Vol] 103 mmol/L 98-108 [facility] Glomerular filtration rate ( GFR) estimation/1.73 sq m using serum, plasma, or whole bOrdered By: Victor M Rojas on 01-22-2025 GFR/1.73 sq M.predicted among non-blacks MDRD (S/P/Bld) [Vol rate/Area] 33 mL/min/{1.73_m2} Low >60 [facility] Comment on above: mL/min/1.73m2 CKD-EP I Creatinine Equation (2020) Potassium measurement (mass/ volume)Ordered By: Victor M Rojas on 01-22-2025 Potassium (Unsp spec) [Mass/Vol] 3.9 mmol/L 3.3-5.[address] [facility] Serum creatinine measurement (mass/volume)Ordered By: Victor M Rojas on 01-22-2025 Creatinine [Mass/Vol] 1.96 mg/dL High 0.70-1.20 [facility] Serum glucose measurement (m ass/volume)Ordered By: Victor M Darwinkelly on 01-22-2025 Glucose [Mass/Vol] 83 mg/dL 70-99 [facility] Serum or plasma albumin akash urement (mass/volume)Ordered By: Victor M Granadosluiskaran on 01-22-2025 Albumin [Mass/Vol] 3.3 g/dL Low 3.4-4.8 [facility] Serum or plasma calcium akash urement (mass/volume)Ordered By: Stefanvianeyleonaprice Granadosluiskaran on 01-22-2025 Calcium [Mass/Vol] 8.2 mg/dL 7.6-11.0 [facility] Serum or plasma urea nitroge n measurement (mass/volume)Ordered By: Victor M Granadosluiskaran on 01-22-2025 Urea nitrogen [Mass/Vol] 48 mg/dL High 4-[address] [facility] Sodium levelOrdered By: Stefanvianey wynn Bob on 01-22-2025 Sodium [Moles/Vol] 136 mmol/L 133-145 [facility] Absolute lymphocyte countOrd ered By: Brandonleonaprice Granadosluiskaran on 01-20-2025 Lymphocytes Auto (Unsp spec) [#/Vol] 1.51 10*3/uL 0.83-4.[address] [facility] Absolute neutrophil countOrd ered By: Victor M Granadosluiskaran on 01-20-2025 Neutrophils (Bld) [#/Vol] 6.1 10*3/uL 2.0-7.[address] [facility] Anion gap in Serum or Plasma Ordered By: Milyprice Granadosluiskaran on 01-20-2025 Anion gap [Moles/Vol] 16 mmol/L High 5-15 [facility] Automated lymphocyte count a s percentage of total leukocytesOrdered By: Milyprice Granadosluiskaran on 01-20-2025 Lymphocytes/100 WBC Auto (Unsp spec) 16.5 % Low 19-[address] [facility] BUN/creatinine ratioOrdered By: Victor M Granadosluiskaran on 01-20-2025 Urea nitrogen/Creatinine [Mass ratio] 16.1 mg/mg 10-[address] [facility] Basophil percentageOrdered B y: Victor M Rojas on 01-20-2025 Basophils/100 WBC (Bld) 0.3 % 0-1 [facility] Carbon dioxide, total [Moles /volume] in Central venous bloodOrdered By: Victor M Rojas on 01-20-2025 CO2 [Moles/Vol] 19.5 mmol/L Low 21.0-32.[address] [facility] Chloride assayOrdered By: Stefan Rojas on 01-20-2025 Chloride [Moles/Vol] 103 mmol/L 98-108 [facility] Eosinophil percentageOrdered By: Victor M Rojas on 01-20-2025 Eosinophils/100 WBC (Bld) 1.2 % 0-[address] [facility] Erythrocyte distribution wid th ratioOrdered By: radha Rojas on 01-20-2025 Erythrocyte distribution width (RBC) [Ratio] 14.9 % High 11.6-14.[address] [facility] Erythrocyte distribution wid th standard deviationOrdered By: Victor M Rojas on 01-20-2025 Erythrocyte distribution width (RBC) [Ratio] 47.9 fl High 35.1-43.[address] [facility] Glomerular filtration rate ( GFR) estimation/1.73 sq m using serum, plasma, or whole bOrdered By: Victor M Rojas on 01-20-2025 GFR/1.73 sq M.predicted among non-blacks MDRD (S/P/Bld) [Vol rate/Area] 29 mL/min/{1.73_m2} Low >60 [facility] Comment on above: mL/min/1.73m2 CKD-EP I Creatinine Equation (2020) Hematocrit Auto (Bld) [Volum e fraction]Ordered By: Victor M Rojas on 01-20-2025 Hematocrit (Bld) [Volume fraction] 42.5 % 40-[address] [facility] Hemoglobin measurementOrdere d By: Victor M Rojas on 01-20-2025 Hemoglobin (Bld) [Mass/Vol] 14.0 g/dL 13.0-16.[address] [facility] Immature granulocytes/100 WB C Auto (Bld)Ordered By: Victor M Rojas on 01-20-2025 Immature granulocytes/100 WBC (Bld) 2.100 % High 0.0-0.[address] [facility] Comment on above: IG% - Immature Granu locytes (promyelocytes, myelocytes and metamyelocytes) > 1% indicates that a LEFT SHIFT is Present. MCV (mean corpuscular volume ) determinationOrdered By: Victor M Rojas on 01-20-2025 MCV (RBC) [Entitic vol] 88.4 fL 80-94 [facility] Mean corpuscular hemoglobin (MCH) determinationOrdered By: radha Rojas on 01-20-2025 MCH (RBC) [Entitic mass] 29.1 pg 27.0-32.[address] [facility] Mean corpuscular hemoglobin concentration (MCHC) determinationOrdered By: vianeyriver edgeprice Rojas on 01-20-2025 MCHC (RBC) [Mass/Vol] 32.9 g/dL 32-36 [facility] Mean platelet volume determi nationOrdered By: Victor M Rojas on 01-20-2025 Platelet mean volume (Bld) [Entitic vol] 11.6 fL 6.2-12.[address] [facility] Monocyte percentageOrdered B y: Victor M Rojas on 01-20-2025 Monocytes/100 WBC (Bld) 13.4 % High 0-10 [facility] Neutrophil percentageOrdered By: radha Rojas on 01-20-2025 Neutrophils/100 WBC (Bld) 66.5 % 47-[address] [facility] Nucleated red blood cell per centageOrdered By: Victor M Rojas on 01-20-2025 Nucleated RBC/100 WBC (Bld) [Ratio] 0 % 0-[address] [facility] Platelet countOrdered By: Stefan Rojas on 01-20-2025 Platelets (Bld) [#/Vol] 218 10*3/uL 150-[address] [facility] Potassium measurement (mass/ volume)Ordered By: Victor M Rojas on 01-20-2025 Potassium (Unsp spec) [Mass/Vol] 4.0 mmol/L 3.3-5.[address] [facility] RBC Auto (Bld) [#/Vol]Ordere d By: Victor M Rojas on 01-20-2025 RBC (Bld) [#/Vol] 4.81 10*6/uL 4.6-6.2 [facility] Serum creatinine measurement (mass/volume)Ordered By: Victor M Rojas on 01-20-2025 Creatinine [Mass/Vol] 2.19 mg/dL High 0.70-1.20 [facility] Serum glucose measurement (m ass/volume)Ordered By: Victor M Rojas on 01-20-2025 Glucose [Mass/Vol] 211 mg/dL High 70-99 [facility] Serum or plasma albumin akash urement (mass/volume)Ordered By: Victor M Rojas on 01-20-2025 Albumin [Mass/Vol] 3.3 g/dL Low 3.4-4.8 [facility] Serum or plasma calcium akash urement (mass/volume)Ordered By: Victor M Rojas on 01-20-2025 Calcium [Mass/Vol] 8.4 mg/dL 7.6-11.0 [facility] Serum or plasma urea nitroge n measurement (mass/volume)Ordered By: Victor M Rojas on 01-20-2025 Urea nitrogen [Mass/Vol] 35 mg/dL High 4-[address] [facility] Sodium levelOrdered By: Brandon perezkandis Bob on 01-20-2025 Sodium [Moles/Vol] 139 mmol/L 133-145 [facility] White blood cell (WBC) count Ordered By: Victor M Rojas on 01-20-2025 WBC (Bld) [#/Vol] 9.2 10*3/uL 4.4-11.0 [facility] CNOVon 01-14-2025 CNOV Office Visit (URALANT ) ELIZABETH MODI ([id number]) 1940 M [facility] Date Time Provider Department 01/14/25 9:15 AM [...] patient: Yes Procedure confirmed with physician and field support specialist: Yes UNIVERSAL PROTOCOL / SAFETY [...] be provided wit (more content not included)... [facility] Anion gap in Serum or Plasma Ordered By: Victor M Rojas on 12-18-2024 Anion gap [Moles/Vol] 14 mmol/L 5-15 [facility] BUN/creatinine ratioOrdered By: Victor M Rojas on 12-18-2024 Urea nitrogen/Creatinine [Mass ratio] 18.6 mg/mg 10-[address] [facility] Bilirubin, totalOrdered By: Victor M Rojas on 12-18-2024 Bilirubin [Mass/Vol] 0.79 mg/dL 0.00-1.30 [facility] Calculated very low density lipoprotein (VLDL) cholesterol measurementOrdered By: Victor M Rojas on 12-18-2024 Calculated very low density lipoprotein (VLDL) cholesterol measurement 25 mg/dL 5-[address] [facility] Carbon dioxide, total [Moles /volume] in Central venous bloodOrdered By: Victor M Rojas on 12-18-2024 CO2 [Moles/Vol] 19.2 mmol/L Low 21.0-32.[address] [facility] Chloride assayOrdered By: Stefan Rojas on 12-18-2024 Chloride [Moles/Vol] 105 mmol/L 98-108 [facility] Erythrocyte distribution wid th ratioOrdered By: Victor M Rojas on 12-18-2024 Erythrocyte distribution width (RBC) [Ratio] 14.9 % High 11.6-14.[address] [facility] Erythrocyte distribution wid th standard deviationOrdered By: Victor M Rojas on 12-18-2024 Erythrocyte distribution width (RBC) [Ratio] 48.5 fl High 35.1-43.[address] [facility] Glomerular filtration rate ( GFR) estimation/1.73 sq m using serum, plasma, or whole bOrdered By: Victor M Rojas on 12-18-2024 GFR/1.73 sq M.predicted among non-blacks MDRD (S/P/Bld) [Vol rate/Area] 38 mL/min/{1.73_m2} Low >60 [facility] Comment on above: mL/min/1.73m2 CKD-EP I Creatinine Equation (2020) Hematocrit Auto (Bld) [Volum e fraction]Ordered By: Victor M Rojas on 12-18-2024 Hematocrit (Bld) [Volume fraction] 44.3 % 40-[address] [facility] Hemoglobin A1c percentageOrd ered By: Victor M Rojas on 12-18-2024 HbA1c (Bld) [Mass fraction] 8.8 % High <5.[address] [facility] Comment on above: Normal < 5.7 % Predi abetic 5.7 - 6.4 % Diabetic >or= 6.5 % Please note range changes. Hemoglobin measurementOrdere d By: Victor M Rojas on 12-18-2024 Hemoglobin (Bld) [Mass/Vol] 14.1 g/dL 13.0-16.[address] [facility] LDL calc ser/plasOrdered By: Victor M Rojas on 12-18-2024 Cholesterol in LDL [Mass/Vol] 48 mg/dL [facility] Comment on above: Gqvhrishlc=512-263 m g/dL & Higher Wpaq=374 mg/dL or greater Laboratory - Chemistry and C hemistry - challengeOrdered By: Victor M Rojas on 12-18-2024 AST [Catalytic activity/Vol] 27 U/L <[address] [facility] MCV (mean corpuscular volume ) determinationOrdered By: Victor M Rojas on 12-18-2024 MCV (RBC) [Entitic vol] 89.1 fL 80-94 [facility] Mean corpuscular hemoglobin (MCH) determinationOrdered By: Victor M Rojas on 12-18-2024 MCH (RBC) [Entitic mass] 28.4 pg 27.0-32.[address] [facility] Mean corpuscular hemoglobin concentration (MCHC) determinationOrdered By: Victor M Rojas on 12-18-2024 MCHC (RBC) [Mass/Vol] 31.8 g/dL Low 32-36 [facility] Mean platelet volume determi nationOrdered By: Victor M Rojas on 12-18-2024 Platelet mean volume (Bld) [Entitic vol] 11.5 fL 6.2-12.[address] [facility] Platelet countOrdered By: Stefan Rojas on 12-18-2024 Platelets (Bld) [#/Vol] 218 10*3/uL 150-[address] [facility] Potassium measurement (mass/ volume)Ordered By: Victor M Rojas on 12-18-2024 Potassium (Unsp spec) [Mass/Vol] 4.3 mmol/L 3.3-5.[address] [facility] RBC Auto (Bld) [#/Vol]Ordere d By: Victor M Rojas on 12-18-2024 RBC (Bld) [#/Vol] 4.97 10*6/uL 4.6-6.2 [facility] Screening total cholesterol/ high density lipoprotein (HDL) cholesterol ratioOrdered By: Victor M Rojas on 12-18-2024 Cholesterol.total/Cholest giuliana in HDL [Mass ratio] 4.53 {ratio} [facility] Serum creatinine measurement (mass/volume)Ordered By: Victor M Rojas on 12-18-2024 Creatinine [Mass/Vol] 1.74 mg/dL High 0.70-1.20 [facility] Serum globulin measurementOr dered By: Victor M Rojas on 12-18-2024 Globulin (S) [Mass/Vol] 3.5 g/dL 2.2-4.2 [facility] Serum glucose measurement (m ass/volume)Ordered By: Victor M Rojas on 12-18-2024 Glucose [Mass/Vol] 82 mg/dL 70-99 [facility] Serum or plasma alanine mojica otransferase (ALT) measurementOrdered By: Victor M Rojas on 12-18-2024 ALT [Catalytic activity/Vol] 20 U/L <[address] [facility] Serum or plasma albumin akash urement (mass/volume)Ordered By: Victor M Rojas on 12-18-2024 Albumin [Mass/Vol] 3.3 g/dL Low 3.4-4.8 [facility] Serum or plasma albumin/glob ulin mass ratioOrdered By: Stefantianna Granadoskaran on 12-18-2024 Albumin/Globulin [Mass ratio] 1.0 {ratio} 0.9-2.[address] [facility] Serum or plasma alkaline marielos sphatase measurementOrdered By: Victor M Rojas on 12-18-2024 ALP [Catalytic activity/Vol] 117 U/L 40-[address] [facility] Serum or plasma calcium akash urement (mass/volume)Ordered By: Victor M Rojas 12-18-2024 Calcium [Mass/Vol] 8.8 mg/dL 7.6-11.0 [facility] Serum or plasma cholesterol in HDL measurement (mass/volume)Ordered By: Victor M oRjas on 12-18-2024 Cholesterol in HDL [Mass/Vol] 21 mg/dL Low >[address] [facility] Comment on above: National Cholesterol Education Program (NCEP) guidelines:<40 mg/dL: Low HDL-cholesterol (major risk factor for CHD)>= 60 mg/dL: High HDL-cholesterol (negative risk factor for CHD)HDL-cholesterol is affected by a number of factors, e.g. smoking, exercise, hormones, sex and age. Serum or plasma cholesterol measurement (mass/volume)Ordered By: Victor M Rojas on 12-18-2024 Cholesterol [Mass/Vol] 94 mg/dL <201 [facility] Comment on above: Cholesterol level, D esirable <200 mg/dLBorderline high cholesterol 200-239 mg/dLHigh cholesterol >=240 mg/dLRecommendations of the NCEP Adult Treatment Panel for the following risk-cutoff thresholds for the [place] population. Serum or plasma urea nitroge n measurement (mass/volume)Ordered By: Victor M Rojas on 12-18-2024 Urea nitrogen [Mass/Vol] 32 mg/dL High 4-[address] [facility] Sodium levelOrdered By: Brandon perezkandis Bob on 12-18-2024 Sodium [Moles/Vol] 138 mmol/L 133-145 [facility] TSH DL <= 0.005 mIU/L QnOrde red By: Victor M Rojas on 12-18-2024 TSH Qn 1.380 uIU/mL 0.300-4.[address] [facility] Total proteinOrdered By: Prosper lonnieprice Rojas on 12-18-2024 Protein [Mass/Vol] 6.8 g/dL 5.9-8.4 [facility] Triglycerides measurementOrd ered By: Victor M Rojas on 12-18-2024 Triglyceride [Mass/Vol] 125 mg/dL <199 [facility] Comment on above: The drugs N-Acetylcy steine and Metamizole may falsely depress this assay. Normal range: <150 mg/dLBorderline High: 150-199 mg/dLHigh: 200-499 mg/dLVery High: >500 mg/dL White blood cell (WBC) count Ordered By: Victor M Rojas on 12-18-2024 WBC (Bld) [#/Vol] 7.7 10*3/uL 4.4-11.0 [facility] Anion gap in Serum or Plasma Ordered By: Victor M Rojas on 11-20-2024 Anion gap [Moles/Vol] 13 mmol/L 5-15 [facility] BUN/creatinine ratioOrdered By: Victor M Rojas on 11-20-2024 Urea nitrogen/Creatinine [Mass ratio] 16.5 mg/mg 10-[address] [facility] Carbon dioxide, total [Moles /volume] in Central venous bloodOrdered By: Victor M Rojas on 11-20-2024 CO2 [Moles/Vol] 20.9 mmol/L Low 21.0-32.[address] [facility] Chloride assayOrdered By: Stefan Rojas on 11-20-2024 Chloride [Moles/Vol] 104 mmol/L 98-108 [facility] Glomerular filtration rate ( GFR) estimation/1.73 sq m using serum, plasma, or whole bOrdered By: Victor M Rojas on 11-20-2024 GFR/1.73 sq M.predicted among non-blacks MDRD (S/P/Bld) [Vol rate/Area] 38 mL/min/{1.73_m2} Low >60 [facility] Comment on above: mL/min/1.73m2 CKD-EP I Creatinine Equation (2020) Potassium measurement (mass/ volume)Ordered By: Victor M Rojas on 11-20-2024 Potassium (Unsp spec) [Mass/Vol] 4.2 mmol/L 3.3-5.[address] [facility] Serum creatinine measurement (mass/volume)Ordered By: Victor M Rojas on 11-20-2024 Creatinine [Mass/Vol] 1.75 mg/dL High 0.70-1.20 [facility] Serum glucose measurement (m ass/volume)Ordered By: Victor M Rojas on 11-20-2024 Glucose [Mass/Vol] 130 mg/dL High 70-99 [facility] Serum or plasma albumin akash urement (mass/volume)Ordered By: Victor M Rojas on 11-20-2024 Albumin [Mass/Vol] 3.5 g/dL 3.4-4.8 [facility] Serum or plasma calcium akash urement (mass/volume)Ordered By: Victor M Rojas on 11-20-2024 Calcium [Mass/Vol] 8.8 mg/dL 7.6-11.0 [facility] Serum or plasma urea nitroge n measurement (mass/volume)Ordered By: Victor M Rojas on 11-20-2024 Urea nitrogen [Mass/Vol] 29 mg/dL High 4-[address] [facility] Sodium levelOrdered By: Brandon Rojas on 11-20-2024 Sodium [Moles/Vol] 139 mmol/L 133-145 [facility] Calculated very low density lipoprotein (VLDL) cholesterol measurementOrdered By: Christina Whipple on 11-07-2024 Calculated very low density lipoprotein (VLDL) cholesterol measurement 34 mg/dL 5-[address] [facility] LDL calc ser/plasOrdered By: Christina Whipple on 11-07-2024 Cholesterol in LDL [Mass/Vol] 43 mg/dL [facility] Comment on above: Enezmvrsrj=675-496 m g/dL & Higher Xzwo=713 mg/dL or greater Screening total cholesterol/ high density lipoprotein (HDL) cholesterol ratioOrdered By: Christina Whipple on 11-07-2024 Cholesterol.total/Cholest giuliana in HDL [Mass ratio] 4.60 {ratio} [facility] Serum or plasma cholesterol in HDL measurement (mass/volume)Ordered By: Christina Whipple on 11-07-2024 Cholesterol in HDL [Mass/Vol] 21 mg/dL Low >[address] [facility] Comment on above: National Cholesterol Education Program (NCEP) guidelines:<40 mg/dL: Low HDL-cholesterol (major risk factor for CHD)>= 60 mg/dL: High HDL-cholesterol (negative risk factor for CHD)HDL-cholesterol is affected by a number of factors, e.g. smoking, exercise, hormones, sex and age. Serum or plasma cholesterol measurement (mass/volume)Ordered By: Christina Whipple on 11-07-2024 Cholesterol [Mass/Vol] 99 mg/dL <201 [facility] Comment on above: Cholesterol level, D esirable <200 mg/dLBorderline high cholesterol 200-239 mg/dLHigh cholesterol >=240 mg/dLRecommendations of the NCEP Adult Treatment Panel for the following risk-cutoff thresholds for the [place] population. Triglycerides measurementOrd ered By: Christina Whipple on 11-07-2024 Triglyceride [Mass/Vol] 171 mg/dL <199 [facility] Comment on above: The drugs N-Acetylcy steine and Metamizole may falsely depress this assay. Normal range: <150 mg/dLBorderline High: 150-199 mg/dLHigh: 200-499 mg/dLVery High: >500 mg/dL Anion gap in Serum or Plasma Ordered By: Victor M Rojas on 10-23-2024 Anion gap [Moles/Vol] 12 mmol/L 5-15 [facility] BUN/creatinine ratioOrdered By: Victor M Rojas on 10-23-2024 Urea nitrogen/Creatinine [Mass ratio] 21.7 mg/mg High 10-[address] [facility] Carbon dioxide, total [Moles /volume] in Central venous bloodOrdered By: Victor M Rojas on 10-23-2024 CO2 [Moles/Vol] 19.8 mmol/L Low 21.0-32.[address] [facility] Chloride assayOrdered By: Stefan Rojas on 10-23-2024 Chloride [Moles/Vol] 106 mmol/L 98-108 [facility] Glomerular filtration rate ( GFR) estimation/1.73 sq m using serum, plasma, or whole bOrdered By: Victor M Rojas on 10-23-2024 GFR/1.73 sq M.predicted among non-blacks MDRD (S/P/Bld) [Vol rate/Area] 39 mL/min/{1.73_m2} Low >60 [facility] Comment on above: mL/min/1.73m2 CKD-EP I Creatinine Equation (2020) Potassium measurement (mass/ volume)Ordered By: Victor M Rojas on 10-23-2024 Potassium (Unsp spec) [Mass/Vol] 4.0 mmol/L 3.3-5.[address] [facility] Serum creatinine measurement (mass/volume)Ordered By: Victor M Rojas on 10-23-2024 Creatinine [Mass/Vol] 1.73 mg/dL High 0.70-1.20 [facility] Serum glucose measurement (m ass/volume)Ordered By: Victor M Rojas on 10-23-2024 Glucose [Mass/Vol] 129 mg/dL High 70-99 [facility] Serum or plasma albumin akash urement (mass/volume)Ordered By: Victor M Rojas on 10-23-2024 Albumin [Mass/Vol] 3.3 g/dL Low 3.4-4.8 [facility] Serum or plasma calcium akash urement (mass/volume)Ordered By: Victor M Rojas on 10-23-2024 Calcium [Mass/Vol] 8.6 mg/dL 7.6-11.0 [facility] Serum or plasma urea nitroge n measurement (mass/volume)Ordered By: Victor M Rojas on 10-23-2024 Urea nitrogen [Mass/Vol] 38 mg/dL High 4-[address] [facility] Sodium levelOrdered By: Brandon Rojas on 10-23-2024 Sodium [Moles/Vol] 137 mmol/L 133-145 [facility] Cardiology Visit Reporton Cardiology Visit Report [facility] [address] [place] [address] OFFICE VISIT Date of Service: 10/16/24 MR#: [id number] Acct: [id number] Name: ELIZABETH MODI Rep #: [id number] : 1940 Provider: GILL Connor Age/Sex: 84/M Location: [facility] Status: Signed HPI HPI History of Present [...] 2021 at [facility] in [place]. 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 Normal [facility] Elbow min 3 Viewson 10-16-19 Elbow min 3 Views [facility] Imaging Services [address] [place], [place] [id number] Elbow min 3 Views MR#: [id number] Acct: [id number] Name: ELIZABETH MODI Rep #: [id number] : 1940 M 84 From: Edy Kapadia MD PCP: Dr. Diana Salmeron MD Status: REG ER Study: Elbow min 3 Views Date of Exam: 10/15/24 Exam# [id number] Ordering Dr: Jesse Angel DO EXAM: Left elbow CLINICAL HISTORY: Injury, pain COMPARISON: None TECHNIQUE: Three views FINDINGS: No acute fracture or dislocation. Moderate joint space narrowing and osteophyte formation consistent with moderate arthrosis. Normal soft tissues. RAD/Elbow min 3 Views IMPRESSION: No acute fracture or dislocation. Moderate arthrosis. Reading Location: [id number] CC: Dr. Diana Salmeron MD; Dr. Jesse Angel DO Homicide Investigator: Signed Normal [facility] Emergency Department Summary on 10-15-2024 Emergency Department Summary [facility] Medical Records Department [address] [place] [address] Emergency Department Summary 10/15/24 MR#: [id number] Acct: [id number] Name: ELIZABETH MODI Rep #: [id number] : 1940 84 From: Jesse Angel DO [...] of his last tetanus. Tetanus Immunization: Unknown 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 alcohol intake: current alcohol intake frequency: a few times a month details: Prior heavier, now occasional. substance use type: does not use ROS ROS ED Constitutional Constitutional ED: Denies chills or fever(s) Eyes E (more content not included)... Normal [facility] Orb Sella Post Fossa Ear w/o on 10-15-2024 Orb Sella Post Fossa Ear w/o [facility] Imaging Services [address] [place] [id number] Orb Sella Post Fossa Ear w/o MR#: [id number] Acct: [id number] Name: ELIZABETH MODI Rep #: [id number] : 1940 M 84 From: Edy Kapadia MD PCP: Dr. Diana Salmeron MD Status: REG ER Study: Orb Sella Post Fossa Ear w/o Date of Exam: Exam# [id number] Ordering Dr: Jesse Angel DO PROCEDURE: ORB [...] ORBITAL FRACTURE OR RETROBULBAR HEMATOMA. Reading Location: [id number] CC: Dr. Diana Salmeron MD; Dr. Jesse Angel, DO Homicide Investigator: Signed Normal [facility] Bacteria Ur Culton 5 Bacteria identified [...] technique or straight catheterization for???urine???collecti on. Normal [facility] Comment on above: Performed By: #### 6 30-4 #### [facility] CLIA [id number] [address] [place] [address] [place] CNOVon 10-01-2024 CNOV Office Visit (UROLWS ) ELIZABETH MODI ([id number]) 1940 M [facility] Date Time Provider Department 10/01/24 1:00 PM [...] Nikolai Connor PA-C 10/01/2024 2:58 PM Signed [facility] PATIENT CLINIC NOTE (M) Some elements [...] (ADULTS MULTIVITAMIN ORAL) Take by mouth. vit C,B-Kd-wpmef-lutein-ze axan (PRESERVISION AREDS-2) 250-90-40-1 mg Take 1 [...] mg ta (more content not included)... Normal [facility] 10-01-2024 CNPN Telephone (UROLWS) ELIZABETH MODI ([id number]) 1940 M T Date Time Provider Department [...] Diagnosis:Gross hematuria [R31.0] Order(s):CT UROGRAM WO/W MICHELON [[id number]] Order #: [id number] FUTURE iv contrast (will be provided with [...] MULTIVITAMIN ORAL) Take by mouth. - vit C,N-Tt-gchnb-lutein-ze axan (PRESERVISION AREDS-2) 250-90-40-1 mg Take 1 [...] mouth once (more content not included)... Normal [facility] Anion gap in Serum or Plasma Ordered By: Victor M Rojas on 09-18-2024 Anion gap [Moles/Vol] 14 mmol/L 5-15 [facility] BUN/creatinine ratioOrdered By: Victor M Rojas on 09-18-2024 Urea nitrogen/Creatinine [Mass ratio] 14.2 mg/mg 10- [facility] Bilirubin, totalOrdered By: Victor M Rojas on 09-18-2024 Bilirubin [Mass/Vol] 0.55 mg/dL 0.00-1.30 [facility] Calculated very low density lipoprotein (VLDL) cholesterol measurementOrdered By: Victor M Rojas on 09-18-2024 Calculated very low density lipoprotein (VLDL) cholesterol measurement 38 mg/dL [facility] VLDL Cholesterol 38 mg/dL [facility] Carbon dioxide, total [Moles /volume] in Central venous bloodOrdered By: Victor M Rojas on 09-18-2024 CO2 [Moles/Vol] 19.8 mmol/L Low 21.0-32.[address] [facility] Chloride assayOrdered By: Stefan Rojas on 09-18-2024 Chloride [Moles/Vol] 102 mmol/L 98-108 [facility] Erythrocyte distribution wid th (RBC) [Ratio]Ordered By: Victor M Rojas on 09-18-2024 Erythrocyte distribution width (RBC) [Entitic vol] 47.1 fL High 35.1-43.9 [facility] Erythrocyte distribution wid th ratioOrdered By: Victor M Rojas on 09-18-2024 Erythrocyte distribution width (RBC) [Ratio] 14.4 % 11.6-14.[address] [facility] Erythrocyte distribution wid th standard deviationOrdered By: Victor M Rojas on 09-18-2024 Erythrocyte distribution width (RBC) [Ratio] 47.1 fl High 35.1-43.[address] [facility] GFR/1.73 sq M.predicted jacobo g non-blacks MDRD (S/P/Bld) [Vol rate/Area]Ordered By: Victor M Rojas on 09-18-2024 Estimated GFR (MDRD) Non-Af Amer 27 Low >[address] [facility] Comment on above: mL/min/1.73m2 CKD-EP I Creatinine Equation (2020) Glomerular filtration rate ( GFR) estimation/1.73 sq m using serum, plasma, or whole bOrdered By: Victor M Rojas on 09-18-2024 GFR/1.73 sq M.predicted among non-blacks MDRD (S/P/Bld) [Vol rate/Area] 27 mL/min/{1.73_m2} Low >60 [facility] Comment on above: mL/min/1.73m2 CKD-EP I Creatinine Equation (2020) Hematocrit Auto (Bld) [Volum e fraction]Ordered By: Victor M Rojas on 09-18-2024 Hematocrit (Bld) [Volume fraction] 41.2 % 40-[address] [facility] Hemoglobin A1c percentageOrd ered By: Victor M Rojas on 09-18-2024 HbA1c (Bld) [Mass fraction] 11.3 % >5.[address] [facility] Hemoglobin measurementOrdere d By: Victor M Rojas on 09-18-2024 Hemoglobin (Bld) [Mass/Vol] 13.5 g/dL 13.0-16.[address] [facility] LDL calc ser/plasOrdered By: Victor M Rojas on 09-18-2024 Cholesterol in LDL [Mass/Vol] 44 mg/dL [facility] Comment on above: Qfqeivdxcw=018-878 m g/dL & Higher Ufyj=474 mg/dL or greater LDL Cholesterol, Calculated 44 mg/dL [facility] Comment on above: Lgcwtezgxy=632-155 m g/dL & Higher Syjz=710 mg/dL or greater Laboratory - Chemistry and C hemistry - challengeOrdered By: Victor M Rojas on 09-18-2024 AST [Catalytic activity/Vol] 43 U/L High <[address] [facility] Comment on above: Hemolysis present, R esults could be affected. MCV (mean corpuscular volume ) determinationOrdered By: Victor M Rojas on 09-18-2024 MCV (RBC) [Entitic vol] 89.6 fL 80-94 [facility] Mean corpuscular hemoglobin (MCH) determinationOrdered By: Victor M Rojas on 09-18-2024 MCH (RBC) [Entitic mass] 29.3 pg 27.0-32.[address] [facility] Mean corpuscular hemoglobin concentration (MCHC) determinationOrdered By: Victor M Rojas on 09-18-2024 MCHC (RBC) [Mass/Vol] 32.8 g/dL 32-36 [facility] Mean platelet volume determi nationOrdered By: Victor M Rojas on 09-18-2024 Platelet mean volume (Bld) [Entitic vol] 12.0 fL 6.2-12.[address] [facility] Platelet countOrdered By: Stefan Rojas on 09-18-2024 Platelets (Bld) [#/Vol] 209 10*3/uL 150-[address] [facility] Potassium (Unsp spec) [Mass/ Vol]Ordered By: Victor M Rojas on 09-18-2024 Potassium [Moles/Vol] 4.1 mmol/L 3.3-5.1 [facility] Comment on above: Hemolysis present, R esults could be affected. Potassium measurement (mass/ volume)Ordered By: Victor M Rojas on 09-18-2024 Potassium (Unsp spec) [Mass/Vol] 4.1 mmol/L 3.3-5.[address] [facility] Comment on above: Hemolysis present, R esults could be affected. RBC Auto (Bld) [#/Vol]Ordere d By: Victor M Rojas on 09-18-2024 RBC (Bld) [#/Vol] 4.60 10*6/uL 4.6-6.2 [facility] Screening total cholesterol/ high density lipoprotein (HDL) cholesterol ratioOrdered By: Victor M Rojas on 09-18-2024 Cholesterol.total/Cholest giuliana in HDL [Mass ratio] 4.29 {ratio} [facility] Serum creatinine measurement (mass/volume)Ordered By: Victor M Rojas on 09-18-2024 Creatinine [Mass/Vol] 2.35 mg/dL High 0.70-1.20 [facility] Serum globulin measurementOr dered By: Victor M Rojas on 09-18-2024 Globulin (S) [Mass/Vol] 3.4 g/dL 2.2-4.2 [facility] Serum glucose measurement (m ass/volume)Ordered By: Victor M Rojas on 09-18-2024 Glucose [Mass/Vol] 287 mg/dL High 70-99 [facility] Serum or plasma alanine mojica otransferase (ALT) measurementOrdered By: Victor M Rojas on 09-18-2024 ALT [Catalytic activity/Vol] 41 U/L <[address] [facility] Serum or plasma albumin akash urement (mass/volume)Ordered By: Victor M Rojas on 09-18-2024 Albumin [Mass/Vol] 3.4 g/dL 3.4-4.8 [facility] Serum or plasma albumin/glob ulin mass ratioOrdered By: Victor M Rojas on 09-18-2024 Albumin/Globulin [Mass ratio] 1.0 {ratio} 0.9-2.[address] [facility] Serum or plasma alkaline marielos sphatase measurementOrdered By: Victor M Rojas on 09-18-2024 ALP [Catalytic activity/Vol] 113 U/L 40-[address] [facility] Serum or plasma calcium kaash urement (mass/volume)Ordered By: Victor M Rojas on 09-18-2024 Calcium [Mass/Vol] 9.0 mg/dL 7.6-11.0 [facility] Serum or plasma cholesterol in HDL measurement (mass/volume)Ordered By: Victor M Rojas on 09-18-2024 Cholesterol in HDL [Mass/Vol] 25 mg/dL Low >[address] [facility] Comment on above: National Cholesterol Education Program (NCEP) guidelines:<40 mg/dL: Low HDL-cholesterol (major risk factor for CHD)>= 60 mg/dL: High HDL-cholesterol (negative risk factor for CHD)HDL-cholesterol is affected by a number of factors, e.g. smoking, exercise, hormones, sex and age. Serum or plasma cholesterol measurement (mass/volume)Ordered By: Victor M Rojas on 09-18-2024 Cholesterol [Mass/Vol] 108 mg/dL <201 [facility] Comment on above: Cholesterol level, D esirable <200 mg/dLBorderline high cholesterol 200-239 mg/dLHigh cholesterol >=240 mg/dLRecommendations of the NCEP Adult Treatment Panel for the following risk-cutoff thresholds for the [place] population. Serum or plasma urea nitroge n measurement (mass/volume)Ordered By: Victor M Rojas on 09-18-2024 Urea nitrogen [Mass/Vol] 33 mg/dL High 4-[address] [facility] Sodium levelOrdered By: Brandon wynn Darwinluiskaran on 09-18-2024 Sodium [Moles/Vol] 135 mmol/L 133-145 [facility] TSH DL <= 0.005 mIU/L QnOrde red By: Stefanradha Granadosluiskaran on 09-18-2024 Thyroid Stimulating Hormone (TSH) 3.520 uIU/mL 0.300-4.[address] [facility] TSH Qn 3.520 uIU/mL 0.300-4.[address] [facility] Total proteinOrdered By: Prosper flemingprice Rojas on 09-18-2024 Protein [Mass/Vol] 6.7 g/dL 5.9-8.4 [facility] Triglycerides measurementOrd ered By: Stefanradha Granadosluiskaran on 09-18-2024 Triglyceride [Mass/Vol] 192 mg/dL <199 [facility] Comment on above: The drugs N-Acetylcy steine and Metamizole may falsely depress this assay. Normal range: <150 mg/dLBorderline High: 150-199 mg/dLHigh: 200-499 mg/dLVery High: >500 mg/dL White blood cell (WBC) count Ordered By: Victor M Rojas on 09-18-2024 WBC (Bld) [#/Vol] 8.5 10*3/uL 4.4-11.0 [facility] Gastroenterology Visit Repor ton 09-06-2024 Gastroenterology Visit Report [facility] [address] [place] [address] OFFICE VISIT Date of Service: 09/06/24 MR#: [id number] Acct: [id number] Name: ELIZABETH MODI Rep #: [id number] : 1940 Provider: GILL Jefferson Age/Sex: 84/M [place] [facility] Status: Signed Intake Vital Signs 01/11/24 07:47 [...] is experiencing diarrhea only once in awhile. [facility] Medical History (Updated 03/04/24 @ 10:55 [...] pulmonary disease) Obesity Atherosclerotic heart disease of [place] coronary artery without angina pectoris Paroxysmal atrial [...] (Reviewed 02/15/23 @ 11:03 by Briana Plata PRINTED CIRCUIT BOARDS SOLDER LEVELER, PRINTED CIRCUIT BOARDS SOLDER LEVELER-C) Mother Diabetes Father Diabetes Heart disease Social History housing: correction Smoking Status: Former smoker how long ago did patient quit smoking: Quit . alcohol intake: current alcohol intake frequency: a few times a month details: Prior heavier, now occasional. substance use type: does not use HPI HPI Chief Complaint: fecal incontinence Details: ELIZABETH MODI, is a 84 M who presents to the office today for f/u. [facility] hospitalization 12.14.22-7.23 for management of choledocholithiasis, calculous [...] Appearance: average body habitus and well nourished [facility] Head: normal to ins (more content not included)... Normal [facility] Anion gap in Serum or Plasma Ordered By: Victor M Rojas on 08-21-2024 Anion gap [Moles/Vol] 14 mmol/L 5-15 [facility] BUN/creatinine ratioOrdered By: Victor M Rojas on 08-21-2024 Urea nitrogen/Creatinine [Mass ratio] 18.2 mg/mg 10-[address] [facility] Carbon dioxide, total [Moles /volume] in Central venous bloodOrdered By: Victor M Rojas on 08-21-2024 CO2 [Moles/Vol] 20.5 mmol/L Low 21.0-32.[address] [facility] Chloride assayOrdered By: Stefan Rojas on 08-21-2024 Chloride [Moles/Vol] 102 mmol/L 98-108 [facility] GFR/1.73 sq M.predicted jacobo g non-blacks MDRD (S/P/Bld) [Vol rate/Area]Ordered By: Victor M Rojas on 08-21-2024 Estimated GFR (MDRD) Non-Af Amer 31 Low >[address] [facility] Comment on above: mL/min/1.73m2 CKD-EP I Creatinine Equation (2020) Glomerular filtration rate ( GFR) estimation/1.73 sq m using serum, plasma, or whole bOrdered By: Victor M Rojas on 08-21-2024 GFR/1.73 sq M.predicted among non-blacks MDRD (S/P/Bld) [Vol rate/Area] 31 mL/min/{1.73_m2} Low >60 [facility] Comment on above: mL/min/1.73m2 CKD-EP I Creatinine Equation (2020) Potassium (Unsp spec) [Mass/ Vol]Ordered By: Victor M Rojas on 08-21-2024 Potassium [Moles/Vol] 4.3 mmol/L 3.3-5.1 [facility] Potassium measurement (mass/ volume)Ordered By: Victor M Rojas on 08-21-2024 Potassium (Unsp spec) [Mass/Vol] 4.3 mmol/L 3.3-5.[address] [facility] Serum creatinine measurement (mass/volume)Ordered By: Victor M Rojas on 08-21-2024 Creatinine [Mass/Vol] 2.07 mg/dL High 0.70-1.20 [facility] Serum glucose measurement (m ass/volume)Ordered By: Victor M Rojas on 08-21-2024 Glucose [Mass/Vol] 198 mg/dL High 70-99 [facility] Serum or plasma albumin akash urement (mass/volume)Ordered By: Victor M Rojas on 08-21-2024 Albumin [Mass/Vol] 3.3 g/dL Low 3.4-4.8 [facility] Serum or plasma calcium akash urement (mass/volume)Ordered By: Victor M Rojas on 08-21-2024 Calcium [Mass/Vol] 8.8 mg/dL 7.6-11.0 [facility] Serum or plasma urea nitroge n measurement (mass/volume)Ordered By: Victor M Rojas on 08-21-2024 Urea nitrogen [Mass/Vol] 38 mg/dL High 4-[address] [facility] Serum phosphorus measurement Ordered By: Victor M Rojas on 08-21-2024 Phosphorus Level 4.2 mg/dL 2.7-4.[address] [facility] Sodium levelOrdered By: Brandon Rojas on 08-21-2024 Sodium [Moles/Vol] 136 mmol/L 133-145 [facility] Random urine microalbumin me asurementOrdered By: Victor M Rojas on 08-01-2024 Urine Random Microalbumin 583.0 mg/L NO RANGE EST. [facility] Urine albumin/creatinine rat io for detection of microalbuminuriaOrdered By: Victor M Rojas on 08-01-2024 Urine Microalbumin/Creatinine Ratio 1371.8 mg/g CRE High <[address] [facility] Urine creatinine measurement (mass/volume)Ordered By: Victor M Rojas on 08-01-2024 Creatinine (U) [Mass/Vol] 42.50 mg/dL NO RANGE EST. [facility] Blood urea nitrogen (BUN)/cr eatinine ratioOrdered By: Victor M Rojas on 07-24-2024 Urea nitrogen/Creatinine [Mass ratio] 20.5 mg/mg High 10-[address] [facility] Carbon dioxide measurementOr dered By: Victor M Rojas on 07-24-2024 CO2 [Moles/Vol] 21.0 mmol/L 21.0-32.[address] [facility] Chloride measurementOrdered By: Victor M Rojas on 07-24-2024 Chloride [Moles/Vol] 106 mmol/L 98-107 [facility] Estimated glomerular filtrat ion rate (GFR) AmericanOrdered By: Victor M Rojas on 07-24-2024 Estimated GFR (MDRD) Amer 44 mL/min Low >[address] [facility] Comment on above: GFR Calc Glomerular filtration rate ( GFR) estimationOrdered By: Victor M Rojas on 07-24-2024 Estimated GFR (MDRD) Non-Af Amer 36 mL/min Low >[address] [facility] Comment on above: Non- GFR Calc GFR/1.73 sq M.predicted among non-blacks MDRD (S/P/Bld) [Vol rate/Area] 36 mL/min/{1.73_m2} Low >60 [facility] Comment on above: Non- GFR Calc Glucose measurementOrdered B y: Victor M Rojas on 07-24-2024 Glucose [Mass/Vol] 230 mg/dL High 74-106 [facility] Comment on above: Glucose result great er than or equal to 200 mg/dLsuggests DIABETES MELLITUS per A.D.A. criteria. Hemoglobin A1c percentageOrd ered By: Victor M Rojas on 07-24-2024 HbA1c (Bld) [Mass fraction] 8.3 % High 3.8-5.[address] [facility] Comment on above: Normal < 5.7 % Predi abetic 5.7 - 6.4 % Diabetic >or= 6.5 % Please note range changes. Phosphorus measurementOrdere d By: Victor M Rojas on 07-24-2024 Phosphorus Level 3.4 mg/dL 2.5-4.[address] [facility] Potassium measurementOrdered By: Victor M Rojas on 07-24-2024 Potassium [Moles/Vol] 4.3 mmol/L 3.5-5.1 [facility] Serum or plasma albumin akash urement (mass/volume)Ordered By: Milyprice Granadosluiskaran on 07-24-2024 Albumin [Mass/Vol] 2.7 g/dL Low 3.2-5.0 [facility] Serum or plasma calcium akash urement (mass/volume)Ordered By: Victor M Darwinkelly on 07-24-2024 Calcium [Mass/Vol] 8.2 mg/dL Low 8.5-10.1 [facility] Serum or plasma creatinine m easurement (mass/volume)Ordered By: Milyprice Granadosluiskaran on 07-24-2024 Creatinine [Mass/Vol] 1.90 mg/dL High 0.70-1.30 [facility] Comment on above: The validity of the calculated GFR & GFRAA in patients over 70 years has not been determined. Clinical correlation is essential. Serum or plasma urea nitroge n measurement (mass/volume)Ordered By: Milyprice Granadosluiskaran on 07-24-2024 Urea nitrogen [Mass/Vol] 39 mg/dL High 7-[address] [facility] Sodium levelOrdered By: Brandon wynn Darwinluiskaran on 07-24-2024 Sodium [Moles/Vol] 135 mmol/L Low 136-145 [facility] CT UROGRAM WO/W IVCONon 06-19 CT UROGRAM WO/W IVCON * * *Final Report* * * DATE OF EXAM: Jun 28 2024 2:26PM [facility] 0560 - CT UROGRAM WO/W IVCON / [...] be communicated with the ordering provider via [employer] staff message or phone message by [employer] within 2 business days of report finalization. --END OF FINDING-- Homicide Investigator: ONEL Transcribe Date/Time: Jul 01 2024 9:40P Dictated by : JARAD ARCOS MD This examination was interpreted and the report reviewed and electronically signed by: JARAD ARCOS MD on Jul 01 2024 9:53PM EST [id number] [id number] Invalid Interpretation Code [facility] Estimated glomerular filtrat ion rate (GFR) AmericanOrdered By: Victor M Rojas on 06-27-2024 Estimated GFR (MDRD) Amer 37 mL/min Low >[address] [facility] Comment on above: GFR Calc Glomerular filtration rate ( GFR) estimationOrdered By: Victor M Rojas on 06-27-2024 Estimated GFR (MDRD) Non-Af Amer 31 mL/min Low >[address] [facility] Comment on above: Non- GFR Calc Serum or plasma creatinine m easurement (mass/volume)Ordered By: Victor M Rojas on 06-27-2024 Creatinine [Mass/Vol] 2.20 mg/dL High 0.70-1.30 [facility] Comment on above: The validity of the calculated GFR & GFRAA in patients over 70 years has not been determined. Clinical correlation is essential. Beau 06-21-2024 JONAS Telephone (UROLWS) ELIZABETH MODI ([id number]) 1940 M [facility] Date Time Provider Department 06/21/24 NIKOLAI CONNOR During your visit today, we recorded the following information about you: Anaid Payne MA 06/21/2024 4:28 PM Signed ----- Message from Nikolai Connor PA-C sent at 06/21/2024 3:54 PM EST ----- No infection in the urine No cancer cells in urine, please continue the rest of the testing JAJA Stewart, [place], Susan Lopez MA 06/25/2024 8:47 AM Signed [...] MULTIVITAMIN ORAL) Take by mouth. - vit C,W-Wo-grhqi-lutein-ze axan (PRESERVISION AREDS-2) 250-90-40-1 mg Take 1 [...] disease) (HCC) [I73.9] 12/07/2019 Below knee amputation ([facility]) [S88.119A] 12/07/2019 Nonhealing surgical wound [T81.89XA] 12/09/2019 Left renal mass [N28.89] 05/05/2023 Encounter Status:Closed by LUKE TAYLOR on 07/09/24 Normal [facility] Absolute neutrophil countOrd ered By: Victor M Rojas on 06-20-2024 Neutrophils (Bld) [#/Vol] 5.5 10*3/uL 2.0-7.[address] [facility] Albumin to globulin ratioOrd ered By: Victor M Rojas on 06-20-2024 Albumin/Globulin [Mass ratio] 0.7 {ratio} Low 0.9-2.[address] [facility] Basophil percentageOrdered B y: Victor M Rojas on 06-20-2024 Basophils/100 WBC (Bld) 0.3 % 0-1 [facility] Bilirubin, totalOrdered By: Victor M Rojas on 06-20-2024 Bilirubin [Mass/Vol] 0.70 mg/dL 0.20-1.00 [facility] Comment on above: For patients on eltr ombopag therapy, use of Dimension Vershire TBIL is not recommended. Blood urea nitrogen (BUN)/cr eatinine ratioOrdered By: Victor M Rojas on 06-20-2024 Urea nitrogen/Creatinine [Mass ratio] 19.0 mg/mg 10-[address] [facility] Carbon dioxide measurementOr dered By: Victor M Rojas on 06-20-2024 CO2 [Moles/Vol] 24.0 mmol/L 21.0-32.[address] [facility] Chloride measurementOrdered By: Victor M Rojas on 06-20-2024 Chloride [Moles/Vol] 104 mmol/L 98-107 [facility] Eosinophil percentageOrdered By: Victor M Rojas on 06-20-2024 Eosinophils/100 WBC (Bld) 2.5 % 0-[address] [facility] Erythrocyte distribution wid th (RBC) [Ratio]Ordered By: Victor M Rojas on 06-20-2024 Erythrocyte distribution width (RBC) [Entitic vol] 47.8 fL High 35.1-43.9 [facility] Erythrocyte distribution wid th ratioOrdered By: Victor M Rojas on 06-20-2024 Erythrocyte distribution width (RBC) [Ratio] 14.7 % High 11.6-14.[address] [facility] Estimated glomerular filtrat ion rate (GFR) AmericanOrdered By: Victor M Rojas on 06-20-2024 Estimated GFR (MDRD) Amer 51 mL/min Low >[address] [facility] Comment on above: GFR Calc Glomerular filtration rate ( GFR) estimationOrdered By: Victor M Rojas on 06-20-2024 Estimated GFR (MDRD) Non-Af Amer 42 mL/min Low >[address] [facility] Comment on above: Non- GFR Calc Glucose measurementOrdered B y: Victor M Rojas on 06-20-2024 Glucose [Mass/Vol] 190 mg/dL High 74-106 [facility] Comment on above: Fasting Glucose resu lt greater than or equal to 126 mg/dL suggests DIABETES MELLITUS per A.D.A. criteria. Hematocrit Auto (Bld) [Volum e fraction]Ordered By: Victor M Rojas on 06-20-2024 Hematocrit (Bld) [Volume fraction] 42.8 % 40-[address] [facility] Hemoglobin A1c percentageOrd ered By: Victor M Rojas on 06-20-2024 HbA1c (Bld) [Mass fraction] 8.3 % High 3.8-5.[address] [facility] Comment on above: Normal < 5.7 % Predi abetic 5.7 - 6.4 % Diabetic >or= 6.5 % Please note range changes. Hemoglobin measurementOrdere d By: Victor M Rojas on 06-20-2024 Hemoglobin (Bld) [Mass/Vol] 13.6 g/dL 13.0-16.[address] [facility] High density lipoprotein (HD L) measurementOrdered By: Victor M Rojas on 06-20-2024 Cholesterol in HDL [Mass/Vol] 29 mg/dL Low >[address] [facility] Comment on above: The drugs N-Acetylcy steine and Metamizole may falsely depress this assay. Reference Range HDL <40 mg/dL Low HDL Cholesterol HDL >or= 60 mg/dL High HDL Cholesterol Immature granulocytes/100 WB C Auto (Bld)Ordered By: Victor M Rojas on 06-20-2024 Immature granulocytes/100 WBC (Bld) 1.900 % High 0.0-0.[address] [facility] Comment on above: IG% - Immature Granu locytes (promyelocytes, myelocytes and metamyelocytes) > 1% indicates that a LEFT SHIFT is Present. Laboratory - Chemistry and C hemistry - challengeOrdered By: Victor M Rojas on 06-20-2024 AST [Catalytic activity/Vol] 37 U/L 15-[address] [facility] Comment on above: Slight Hemolysis, Re sult may be falsely increased. Low density lipoprotein (LDL ) cholesterol measurementOrdered By: Victor M Rojas on 06-20-2024 Cholesterol in LDL [Mass/Vol] 46 mg/dL 0-[address] [facility] Lymphocytes Auto (Unsp spec) [#/Vol]Ordered By: Victor M Rojas on 06-20-2024 Lymphocytes (Bld) [#/Vol] 1.97 10*3/uL 0.83-4.[address] [facility] Lymphocytes/100 WBC Auto (Un sp spec)Ordered By: Victor M Rojas on 06-20-2024 Lymphocytes/100 WBC (Bld) 21.8 % 19-[address] [facility] MCV (mean corpuscular volume ) determinationOrdered By: Victor M Rojas on 06-20-2024 MCV (RBC) [Entitic vol] 89.9 fL 80-94 [facility] Mean corpuscular hemoglobin (MCH) determinationOrdered By: Victor M Rojas on 06-20-2024 MCH (RBC) [Entitic mass] 28.6 pg 27.0-32.[address] [facility] Mean corpuscular hemoglobin concentration (MCHC) determinationOrdered By: Victor M Rojas on 06-20-2024 MCHC (RBC) [Mass/Vol] 31.8 g/dL Low 32-36 [facility] Mean platelet volume determi nationOrdered By: Victor M Rojas on 06-20-2024 Platelet mean volume (Bld) [Entitic vol] 11.9 fL 6.2-12.[address] [facility] Monocyte percentageOrdered B y: Victor M Rojas on 06-20-2024 Monocytes/100 WBC (Bld) 13.0 % High 0-10 [facility] Neutrophil percentageOrdered By: Victor M Rojas on 06-20-2024 Neutrophils/100 WBC (Bld) 60.5 % 47-[address] [facility] Nucleated red blood cell per centageOrdered By: Victor M Rojas on 06-20-2024 Nucleated RBC/100 WBC (Bld) [Ratio] 0 % 0-[address] [facility] Platelet countOrdered By: Stefan Rojas on 06-20-2024 Platelets (Bld) [#/Vol] 239 10*3/uL 150-[address] [facility] Potassium measurementOrdered By: Victor M Rojas on 06-20-2024 Potassium [Moles/Vol] 4.2 mmol/L 3.5-5.1 [facility] Comment on above: Slight Hemolysis, Re sult may be falsely increased. RBC Auto (Bld) [#/Vol]Ordere d By: Victor M Rojas on 06-20-2024 RBC (Bld) [#/Vol] 4.76 10*6/uL 4.6-6.2 [facility] Serum anion gap measurementO rdered By: Victor M Rojas on 06-20-2024 Anion gap [Moles/Vol] 8 mmol/L 5-15 [facility] Serum globulin measurementOr dered By: Victor M Rojas on 06-20-2024 Globulin (S) [Mass/Vol] 3.9 g/dL 2.2-4.2 [facility] Serum or plasma alanine mojica otransferase (ALT) measurementOrdered By: Victor M Rojas on 06-20-2024 ALT [Catalytic activity/Vol] 45 U/L 16-[address] [facility] Serum or plasma albumin akash urement (mass/volume)Ordered By: Victor M Rojas on 06-20-2024 Albumin [Mass/Vol] 2.8 g/dL Low 3.2-5.0 [facility] Serum or plasma alkaline marielos sphatase measurementOrdered By: Victor M Rojas on 06-20-2024 ALP [Catalytic activity/Vol] 123 U/L High 45-[address] [facility] Serum or plasma calcium akash urement (mass/volume)Ordered By: Victor M Rojas on 06-20-2024 Calcium [Mass/Vol] 8.4 mg/dL Low 8.5-10.1 [facility] Serum or plasma cholesterol measurement (mass/volume)Ordered By: Victor M Rojas on 06-20-2024 Cholesterol [Mass/Vol] 104 mg/dL <200 [facility] Comment on above: <200 mg/dL Desirable 200-240 mg/dL Borderline >240 mg/dL High Risk Serum or plasma creatinine m easurement (mass/volume)Ordered By: Victor M Rojas on 06-20-2024 Creatinine [Mass/Vol] 1.68 mg/dL High 0.70-1.30 [facility] Comment on above: The validity of the calculated GFR & GFRAA in patients over 70 years has not been determined. Clinical correlation is essential. Serum or plasma urea nitroge n measurement (mass/volume)Ordered By: Victor M Darwinluiskaran on 06-20-2024 Urea nitrogen [Mass/Vol] 32 mg/dL High 7-[address] [facility] Sodium levelOrdered By: Brandon wynn Darwinkelly on 06-20-2024 Sodium [Moles/Vol] 136 mmol/L 136-145 [facility] TSH QnOrdered By: Victor M Darwinkelly on 06-20-2024 Thyroid Stimulating Hormone (TSH) 2.290 uIU/mL 0.358-3.[address] [facility] Total proteinOrdered By: Prosper phelan Darwinluiskaran on 06-20-2024 Protein [Mass/Vol] 6.7 g/dL 6.4-8.2 [facility] Triglycerides measurementOrd ered By: Victor M Darwinkelly on 06-20-2024 Triglyceride [Mass/Vol] 145 mg/dL <199 [facility] Comment on above: The drugs N-Acetylcy steine and Metamizole may falsely depress this assay.Serum Triglycerides Reference Interval Normal <150 mg/dL Borderline high 150 - 199 mg/dL High 200 - 499 mg/dL Very High > or = 500 mg/dL Very low density lipoprotein (VLDL) cholesterol measurementOrdered By: Victor M Darwinluiskaran on 06-20-2024 VLDL Cholesterol 29 mg/dL 5-[address] [facility] White blood cell (WBC) count Ordered By: Victor M Darwinkelly on 06-20-2024 WBC (Bld) [#/Vol] 9.1 10*3/uL 4.4-11.0 [facility] Bacteria Ur Culton 4 Bacteria identified [...] technique or straight catheterization for???urine???collecti on. Normal [facility] Comment on above: Performed By: #### 6 30-4 #### [facility] CLIA [id number] [address] [place] [address] [place] CNOVon 06-18-2024 CNOV Office Visit (UROLWS ) ELIZABETH MODI ([id number]) 1940 M CHT Date Time Provider Department 06/18/24 1:00 PM NIKOLAI CONNOR UROLWS During your visit today, we recorded the following information about you: Nikolai Connor PA-C 06/18/2024 4:05 PM Signed [facility] NEW PATIENT CLINIC NOTE SERVICE DATE: June 18, 2024 NAME: Elizabeth Modi CHIEF COMPLAINT: Hematuria HISTORY OF PRESENT ILLNESS: Elizabeth Modi is a 83 year old male an new patient here for The patient reports Hematuria with a few episodes of hematuria Will get Urine sample today for culture and cytology Schedule Cystoscopy at [place] And CT Urogram at [place] We discussed the need for full hematuria [...] (ADULTS MULTIVITAMIN ORAL) Take by mouth. vit C,V-Qh-yjyfd-lutein-ze axan (PRESERVISION AREDS-2) 250-90-40-1 mg Take 1 [...] DM (diab (more content not included)... Normal [facility] CREATININE BLDOrdered By: Amelia August on 06-18-2024 Creatinine [Mass/Vol] 1.37 mg/dL High 0.73 - 1.22 mg/dL [facility] GFR/1.73 sq M.predicted among non-blacks MDRD (S/P/Bld) [Vol rate/Area] 52 mL/min/{1.73_m2} Low - PINF [facility] Comment on above: Estimated Glomerular [...] Interpretation and review of laboratory results Abnormal [facility] CREATININE BLDon 06-18-2024 Creatinine [Mass/Vol] 1.37 mg/dL High 0.73-1.22 [facility] Comment on above: Order Comment: Marty quinonez Type: BLOOD SPECIMEN Ordering Facility: [facility] Address: [address] [place] [address] Performed By: #### C RET1 #### [facility] [id number] [address] [place] [address] Creatinine and Glomerular filtration rate.predicted panel (S/P/Bld) 52 mL/min/1.73m??? Low >=60 [facility] Comment on above: Order Comment: Marty quinonez Type: BLOOD SPECIMEN Ordering Facility: [facility] Address: [address] [place] [address] Result Comment: Alma Delia mated Glomerular Filtration [...] By: #### C RET1 #### [id number] [address] [place] [address] [place] CYTOLOGY NON-GYNon CASE REPORT Normal [facility] Comment on above: Order Comment: Marty quinonez Type: URINE SPECIMEN Ordering Facility: [facility] Address: [address] [place] [address] Result Comment: [facility] Cytology Report Case: [id number] Authorizing Provider: Nikolai Connor PA-C Collected: 06/18/2024 01:58 PM Ordering Location: Urology Received: 06/18/2024 02:43 PM Pathologist: Eric Sutherland MD Specimen: Urine, Cystoscopic Performed By: #### C YTONON #### [facility] CLIA [id number] [address] [place] [address] [place] [facility] CLINICAL HISTORY hematuria Normal [facility] Comment on above: Order Comment: Speci men Type: URINE SPECIMEN Ordering Facility: [facility] Address: [address] [place] [address] Performed By: #### C YTONON #### [facility] CLIA [id number] [address] [place] [address] OF [facility] FINAL DIAGNOSIS Normal [facility] Comment on above: Order Comment: Speci men Type: URINE SPECIMEN Ordering Facility: [facility] Address: [address] [place] [address] Result Comment: A - Urine, Cystoscopic Negative for high-grade urothelial carcinoma. Acute and chronic inflammation. Blood. Performed By: #### C YTONON #### [facility] CLIA [id number] [address] [place] [address] [place] FINAL PERFORMING LAB Normal [facility] Comment on above: Order Comment: Speci men Type: URINE SPECIMEN Ordering Facility: [facility] Address: [address] [place] [address] Result Comment: Tech nical component, ticker maintainer screening performed at [facility], [address] [place] [address] CLIA# [id number] Diagnostic interpretation performed at [facility], [address] [place] [address] CLIA# [id number] Store Loss Prevention Manager: Kemal Campos M.D. Performed By: #### C YTONON #### [facility] CLIA [id number] [address] [place] [address] [place] GROSS DESCRIPTION Normal [facility] Comment on above: Order Comment: Speci men Type: URINE SPECIMEN Ordering Facility: [facility] Address: [address] [place] [address] Result Comment: José Miguel hannah, Cystoscopic 8 cc cloudy red fluid . ThinPrep prepared. Performed By: #### C YTONON #### [facility] CLIA [id number] [address] [place] [address] [place] Bilirubin Test strip Ql (U)O rdered By: Victor M Rojas on 06-17-2024 Bilirubin Ql (U) Negative Negative [facility] Glucose Ql (U)Ordered By: Stefna Rojas on 06-17-2024 Glucose (U) [Mass/Vol] 1000 mg/dL High Normal [facility] Ketones Test strip Ql (U)Ord ered By: Victor M Rojas on 06-17-2024 Ketones Ql (U) Negative Negative [facility] Nitrite Test strip Ql (U)Ord ered By: Victor M Rojas on 06-17-2024 Nitrite Ql (U) Negative Negative [facility] Protein Test strip Ql (U)Ord ered By: Victor M Rojas on 06-17-2024 Protein Ql (U) 500 mg/dl High Negative [facility] Urine blood detectionOrdered By: Victor M Rojas on 06-17-2024 Urine Occult Blood 250 /ul High Negative [facility] Urine clarityOrdered By: Prosper Rojas on 06-17-2024 Clarity (U) Cloudy Clear [facility] Urine color determinationOrd ered By: Victor M Rojas on 06-17-2024 Color (U) Red Yellow [facility] [facility] Urine cultureOrdered By: Prosper Rojas on 06-17-2024 Bacteria identified Cx Nom (U) Culture exhibits no growth. [facility] Urine leukocyte esterase det ection by dipstickOrdered By: Milyprice Bob on 06-17-2024 Leukocyte esterase Test strip Ql (U) 25 /ul High Negative [facility] Urine pHOrdered By: Tg Rojas on 06-17-2024 pH (U) 5.0 [pH] 5.0 - 8.[address] [facility] Urine specific gravity measu rementOrdered By: Victor M Rojas on 06-17-2024 Specific gravity (U) [Rel density] 1.015 1.002-1.[address] [facility] Urobilinogen Ql (U)Ordered B y: Victor M Rojas on 06-17-2024 Urine Urobilinogen Normal mg/dl Normal [facility] Gastroenterology Visit Repor ton 06-06-2024 Gastroenterology Visit Report [facility] [address] [place] [address] OFFICE VISIT Date of Service: 06/06/24 MR#: [id number] Acct: [id number] Name: ELIZABETH MODI Rep #: [id number] : 1940 Provider: GILL Jefferson Age/Sex: 83/M Location: [facility] Status: Signed Intake Vital Signs 01/11/24 07:47 [...] Denies bloody stools, N/V/C and abdominal pain. 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 alcohol intake: current alcohol intake frequency: a few times a month details: Prior heavier, now occasional. substance use type: does not use HPI HPI Chief Complaint: f/u. Details: ELIZABETH MODI, is a 83 M who presents to the office today for f/u. *[facility] hospitalization 12.14.22-12.17.22 for management of choledocholithiasis [...] MHD dila (more content not included)... Normal [facility] BCIDon 08-02-2023 Acinetobacter landon-baumanii complex Not detected Normal Not Detected [facility] ([place]) Comment on above: Performed By: #### B MARANDA #### [address] [address] Bacteroides fragilis Not detected Normal Not Detected [facility] [place] Comment on above: Performed By: #### B MARANDA #### [place] [address] BCID Comment See Comment Normal [facility] [place] Comment on above: Result Comment: Anti [...] follow. Performed By: #### B MARANDA #### [place] [address] Megan albicans Not detected Normal Not Detected [facility] [place] Comment on above: Performed By: #### B MARNADA #### [address] [address] Megan auris Not detected Normal Not Detected [facility] [place] Comment on above: Performed By: #### B MARANDA #### [place] [id number] Megan glabrata Not detected Normal Not Detected [facility] [place] Comment on above: Performed By: #### B MARANDA #### [address] [address] Megan krusei Not detected Normal Not Detected [facility] [place] Comment on above: Performed By: #### B MARANDA #### [address] [address] Megan parapsilosis Not detected Normal Not Detected [facility] [place] Comment on above: Performed By: #### B MARANDA #### [place] [id number] Megan tropicalis Not detected Normal Not Detected [facility] [place] Comment on above: Performed By: #### B MARANDA #### [place] [address] Cryptococcus neoformans-gattii Not detected Normal Not Detected [facility] [place] Comment on above: Performed By: #### B MARANDA #### [facility] [address] [place] [address] CTX-M (ESBL) Not Applicable Normal Not Detected [facility] [place] Comment on above: Performed By: #### B MARANDA #### [place] [address] E. Coli Not detected Normal Not Detected [facility] [place] Comment on above: Performed By: #### B MARANDA #### [place] [address] Enterobacter cloacae Complex Not detected Normal Not Detected [facility] [place] Comment on above: Performed By: #### B MARANDA #### [place] [address] Enterobacterales Not detected Normal Not Detected [facility] [place] Comment on above: Performed By: #### B MARANDA #### [place] [address] Enterococcus faecalis Not detected Normal Not Detected [facility] [place] Comment on above: Performed By: #### B MARANDA #### [place] [address] Enterococcus faecium Not detected Normal Not Detected [facility] [place] Comment on above: Performed By: #### B MARANDA #### [place] [address] Haemophilus influenzae Not detected Normal Not Detected [facility] [place] Comment on above: Performed By: #### B MARANDA #### [place] [address] IMP (Carbapenemase) Not Applicable Normal Not Detected [facility] [place] Comment on above: Performed By: #### B MARANDA #### [place] [address] Klebsiella aerogenes Not detected Normal Not Detected [facility] ([place] Comment on above: Performed By: #### B MARANDA #### [place] [address] Klebsiella oxytoca Not detected Normal Not Detected [facility] [place] Comment on above: Performed By: #### B MARANDA #### [address] [address] Klebsiella pneumoniae group Not detected Normal Not Detected [facility] [place] Comment on above: Performed By: #### B MARANDA #### [place] [address] KPC (Carbapenemase) Not Applicable Normal Not Detected [facility] [place] Comment on above: Performed By: #### B MARANDA #### [place] [address] Listeria monocytogenes Not detected Normal Not Detected [facility] [place] Comment on above: Performed By: #### B MARANDA #### [place] [address] MCR-1 (Colistin Resistance) Not Applicable Normal Not Detected [facility] [place] Comment on above: Performed By: #### B MARANDA #### [place] [address] Mec A/C Detected Abnormal Not Detected [facility] [place] Comment on above: Performed By: #### B MARANDA #### [place] [address] Mec A/C-MREJ (MRSA) Not Applicable Normal Not Detected [facility] [place] Comment on above: Performed By: #### B MARANDA #### [place] [address] NDM (Carbapenemase) Not Applicable Normal Not Detected [facility] [place] Comment on above: Performed By: #### B MARANDA #### [place] [address] Neisseria meningitidis (Encapsalated) Not detected Normal Not Detected [facility] [place] Comment on above: Performed By: #### B MARANDA #### [place] [address] OXA-48 like (Carbapenemase) Not Applicable Normal Not Detected [facility] [place] Comment on above: Performed By: #### B MARANDA #### [address] [address] Proteus Not detected Normal Not Detected [facility] [place] Comment on above: Performed By: #### B MARANDA #### [address] [address] Pseudomonas aeruginosa Not detected Normal Not Detected [facility] [place] Comment on above: Performed By: #### B MARANDA #### [address] [address] S. agalactiae Org specific cx Ql (Vag fld) Not detected Normal Not Detected [facility] [place] Comment on above: Performed By: #### B MARANDA #### [address] [address] Salmonella species Not detected Normal Not Detected [facility] [place] Comment on above: Performed By: #### B MARANDA #### [place] [address] Serratia marcescens Not detected Normal Not Detected [facility] [place] Comment on above: Performed By: #### B MARANDA #### [place] [address] Staphylococcus Detected Abnormal Not Detected [facility] [place] Comment on above: Performed By: #### B MARANDA #### [address] [address] Staphylococcus aureus Not detected Normal Not Detected [facility] [place] Comment on above: Result Comment: If S taphylococcus aureus is Detected, an Infectious Disease physician consult is required on identification. Performed By: #### B MARANDA #### [address] [address] Staphylococcus epidermidis Detected Abnormal Not Detected [facility] [place] Comment on above: Performed By: #### B MARANDA #### [address] [address] Staphylococcus lugdunensis Not detected Normal Not Detected [facility] [place] Comment on above: Performed By: #### B MARANDA #### [place] [address] Stenotrophomonas maltophilia Not detected Normal Not Detected [facility] [place] Comment on above: Performed By: #### B MARANDA #### [place] [address] Streptococcus Not detected Normal Not Detected [facility] [place] Comment on above: Performed By: #### B MARANDA #### [place] [address] Streptococcus pneumoniae Not detected Normal Not Detected [facility] [place] Comment on above: Performed By: #### B MARANDA #### [place] [address] Streptococcus pyogenes Not detected Normal Not Detected [facility] [place] Comment on above: Performed By: #### B MARANDA #### [place] [address] Van A/B Not Applicable Normal Not Detected [facility] [place] Comment on above: Performed By: #### B MARANDA #### [place] [address] VIM (Carbapenemase) Not Applicable Normal Not Detected [facility] [place] Comment on above: Performed By: #### B MARANDA #### [place] [address] Absolute lymphocyte countOrd ered By: Dwayne Palumbo on 02-08-2023 Lymphocytes Auto (Unsp spec) [#/Vol] 1.91 10*3/uL 0.83-4.[address] [facility] Basophil percentageOrdered B y: Dwayne Palumbo on 02-08-2023 Basophils/100 WBC (Bld) 0.2 % 0-1 [facility] Bilirubin [Mass/Vol] 0.90 mg/dL 0.20-1.00 [facility] Comment on above: For patients on eltr ombopag therapy, use of Dimension Vershire TBIL is not recommended. Chloride [Moles/Vol] 105 mmol/L 98-107 [facility] Eosinophils/100 WBC (Bld) 2.7 % 0-[address] [facility] Glucose [Mass/Vol] 191 mg/dL 74-106 [facility] Comment on above: Fasting Glucose resu lt greater than or equal to 126 mg/dL suggests DIABETES MELLITUS per A.D.A. criteria. Neutrophils (Bld) [#/Vol] 7.0 10*3/uL 2.0-7.[address] [facility] Neutrophils/100 WBC (Bld) 66.4 % 47-[address] [facility] Potassium [Moles/Vol] 4.1 mmol/L 3.5-5.1 [facility] Protein [Mass/Vol] 8.0 g/dL 6.4-8.2 [facility] Sodium [Moles/Vol] 137 mmol/L 136-145 [facility] WBC (Bld) [#/Vol] 10.5 10*3/uL 4.4-11.0 [facility] Blood erythrocytes count (nu mber/volume)Ordered By: Dwayne Palumbo on 02-08-2023 RBC (Bld) [#/Vol] 4.64 10*6/uL 4.6-6.2 [facility] Blood hemoglobin measurement (mass/volume)Ordered By: Dwayne Palumbo on 02-08-2023 Hemoglobin (Bld) [Mass/Vol] 12.7 g/dL 13.0-16.[address] [facility] Blood lymphocytes/100 leukoc ytesOrdered By: Dwayne Palumbo on 02-08-2023 Lymphocytes/100 WBC (Bld) 18.2 % 19-[address] [facility] Blood monocytes/100 leukocyt esOrdered By: Dwayne Palumbo on 02-08-2023 Monocytes/100 WBC (Bld) 11.2 % 0-10 [facility] Blood platelet mean volumeOr dered By: Dwayne Palumbo on 02-08-2023 Platelet mean volume (Bld) [Entitic vol] 10.7 fL 6.2-12.[address] [facility] Determination of erythrocyte mean corpuscular volume (MCV)Ordered By: Dwayne Palumbo on 02-08-2023 MCV (RBC) [Entitic vol] 86.6 fL 80-94 [facility] Hematocrit Auto (Bld) [Volum e fraction]Ordered By: Dwayne Palumbo on 02-08-2023 Hematocrit (Bld) [Volume fraction] 40.2 % 40-[address] [facility] Laboratory - Chemistry and C hemistry - challengeOrdered By: Dwayne Palumbo on 02-08-2023 ALP [Catalytic activity/Vol] 122 U/L 45-[address] [facility] ALT [Catalytic activity/Vol] 42 U/L 16-[address] [facility] CO2 [Moles/Vol] 23.0 mmol/L 21.0-32.[address] [facility] Globulin (S) [Mass/Vol] 4.6 g/dL 2.2-4.2 [facility] Urea nitrogen/Creatinine [Mass ratio] 25.7 mg/mg 10-[address] [facility] Laboratory - Hematology and Cell countsOrdered By: Dwayne Palumbo on 02-08-2023 Erythrocyte distribution width (RBC) [Entitic vol] 50.7 fL 35.1-43.9 [facility] Erythrocyte distribution width (RBC) [Ratio] 16.1 % 11.6-14.[address] [facility] Immature granulocytes/100 WBC (Bld) 1.300 % 0.0-0.[address] [facility] Comment on above: IG% - Immature Granu locytes (promyelocytes, myelocytes and metamyelocytes) > 1% indicates that a LEFT SHIFT is Present. MCH (RBC) [Entitic mass] 27.4 pg 27.0-32.[address] [facility] Nucleated RBC/100 WBC (Bld) [Ratio] 0 % 0-[address] [facility] MCHC Auto (RBC) [Mass/Vol]Or dered By: Dwayne Palumbo on 02-08-2023 MCHC (RBC) [Mass/Vol] 31.6 g/dL 32-36 [facility] No Panel InformationOrdered By: Dwayne Palumbo on 02-08-2023 Estimated GFR (MDRD) Amer 46 mL/min >[address] [facility] Comment on above: GFR Calc Estimated GFR (MDRD) Non-Af Amer 38 mL/min >[address] [facility] Comment on above: Non- GFR Calc Platelets bldOrdered By: Edilson Palumbo on 02-08-2023 Platelets (Bld) [#/Vol] 275 10*3/uL 150-[address] [facility] Serum or plasma albumin akash urement (mass/volume)Ordered By: Dwayne Palumbo on 02-08-2023 Albumin [Mass/Vol] 3.4 g/dL 3.2-5.0 [facility] Serum or plasma albumin/glob ulin mass ratioOrdered By: Dwayne Palumbo on 02-08-2023 Albumin/Globulin [Mass ratio] 0.7 {ratio} 0.9-2.[address] [facility] Serum or plasma calcium akash urement (mass/volume)Ordered By: Dwayne Palumbo on 02-08-2023 Calcium [Mass/Vol] 9.4 mg/dL 8.5-10.1 [facility] Serum or plasma creatinine m easurement (mass/volume)Ordered By: Dwayne Palumbo on 02-08-2023 Creatinine [Mass/Vol] 1.83 mg/dL 0.70-1.30 [facility] Comment on above: The validity of the calculated GFR & GFRAA in patients over 70 years has not been determined. Clinical correlation is essential. Serum or plasma urea nitroge n measurement (mass/volume)Ordered By: Dwayne Palumbo on 02-08-2023 Urea nitrogen [Mass/Vol] 47 mg/dL 7-[address] [facility] Thin prep Papanicolaou smear with manual screeningOrdered By: Dwayne Palumbo on 02-08-2023 Thin prep Papanicolaou smear with manual screening 30 U/L 15-[address] [facility] Thin prep Papanicolaou smear with manual screening 9 5-[address] [facility] Absolute lymphocyte countOrd ered By: Jesse Haywood on 12-17-2022 Lymphocytes Auto (Unsp spec) [#/Vol] 0.86 10*3/uL 0.83-4.[address] [facility] Basophil percentageOrdered B y: eJsse Haywood on 12-17-2022 Basophils/100 WBC (Bld) 0.1 % 0-1 [facility] Chloride [Moles/Vol] 113 mmol/L 98-107 [facility] Eosinophils/100 WBC (Bld) 0.2 % 0-[address] [facility] Glucose [Mass/Vol] 178 mg/dL 74-106 [facility] Comment on above: Fasting Glucose resu lt greater than or equal to 126 mg/dL suggests DIABETES MELLITUS per A.D.A. criteria. Neutrophils (Bld) [#/Vol] 8.2 10*3/uL 2.0-7.[address] [facility] Neutrophils/100 WBC (Bld) 80.2 % 47-[address] [facility] Potassium [Moles/Vol] 3.8 mmol/L 3.5-5.1 [facility] Sodium [Moles/Vol] 141 mmol/L 136-145 [facility] WBC (Bld) [#/Vol] 10.2 10*3/uL 4.4-11.0 [facility] Blood erythrocytes count (nu mber/volume)Ordered By: Jesse Haywood on 12-17-2022 RBC (Bld) [#/Vol] 3.91 10*6/uL 4.6-6.2 [facility] Blood hemoglobin measurement (mass/volume)Ordered By: Jesse Haywood on 12-17-2022 Hemoglobin (Bld) [Mass/Vol] 11.1 g/dL 13.0-16.[address] [facility] Blood lymphocytes/100 leukoc ytesOrdered By: Jesse Haywood on 12-17-2022 Lymphocytes/100 WBC (Bld) 8.4 % 19-[address] [facility] Blood monocytes/100 leukocyt esOrdered By: Jesse Haywood on 12-17-2022 Monocytes/100 WBC (Bld) 9.2 % 0-10 [facility] Blood platelet mean volumeOr dered By: Jesse Haywood on 12-17-2022 Platelet mean volume (Bld) [Entitic vol] 11.4 fL 6.2-12.[address] [facility] Determination of erythrocyte mean corpuscular volume (MCV)Ordered By: Jesse Haywood on 12-17-2022 MCV (RBC) [Entitic vol] 87.7 fL 80-94 [facility] Glucose Glucometer (BldC) [M ass/Vol]Ordered By: Jesse Haywood on 12-17-2022 Glucose [Mass/Vol] 216 mg/dL 74-106 [facility] Comment on above: MANAGEMENT OF PATIEN T CARE PER NURSING PROTOCOL Hematocrit Auto (Bld) [Volum e fraction]Ordered By: Jesse Haywood on 12-17-2022 Hematocrit (Bld) [Volume fraction] 34.3 % 40-[address] [facility] Laboratory - Chemistry and C hemistry - challengeOrdered By: Jesse Haywood on 12-17-2022 CO2 [Moles/Vol] 21.0 mmol/L 21.0-32.[address] [facility] Urea nitrogen/Creatinine [Mass ratio] 30.1 mg/mg 10-[address] [facility] Laboratory - Hematology and Cell countsOrdered By: Jesse Haywood on 12-17-2022 Erythrocyte distribution width (RBC) [Entitic vol] 47.4 fL 35.1-43.9 [facility] Erythrocyte distribution width (RBC) [Ratio] 14.7 % 11.6-14.[address] [facility] Immature granulocytes/100 WBC (Bld) 1.900 % 0.0-0.[address] [facility] Comment on above: IG% - Immature Granu locytes (promyelocytes, myelocytes and metamyelocytes) > 1% indicates that a LEFT SHIFT is Present. MCH (RBC) [Entitic mass] 28.4 pg 27.0-32.[address] [facility] Nucleated RBC/100 WBC (Bld) [Ratio] 0 % 0-[address] [facility] MCHC Auto (RBC) [Mass/Vol]Or dered By: Jesse Haywood on 12-17-2022 MCHC (RBC) [Mass/Vol] 32.4 g/dL 32-36 [facility] No Panel InformationOrdered By: Jesse Haywood on 12-17-2022 Estimated Creatinine Clearance Calc 34.17 ml/min [facility] Estimated GFR (MDRD) Amer 56 mL/min >[address] [facility] Comment on above: GFR Calc Estimated GFR (MDRD) Non-Af Amer 47 mL/min >[address] [facility] Comment on above: Non- GFR Calc Platelets bldOrdered By: Stephanie Haywood on 12-17-2022 Platelets (Bld) [#/Vol] 248 10*3/uL 150-[address] [facility] Serum or plasma calcium akash urement (mass/volume)Ordered By: Jesse Haywood on 12-17-2022 Calcium [Mass/Vol] 8.0 mg/dL 8.5-10.1 [facility] Serum or plasma creatinine m easurement (mass/volume)Ordered By: Jesse Haywood on 12-17-2022 Creatinine [Mass/Vol] 1.53 mg/dL 0.70-1.30 [facility] Comment on above: The validity of the calculated GFR & GFRAA in patients over 70 years has not been determined. Clinical correlation is essential. Serum or plasma urea nitroge n measurement (mass/volume)Ordered By: Jesse Haywood on 12-17-2022 Urea nitrogen [Mass/Vol] 46 mg/dL 7-[address] [facility] Thin prep Papanicolaou smear with manual screeningOrdered By: Jesse Haywood on 12-17-2022 Thin prep Papanicolaou smear with manual screening 7 5-[address] [facility] Bacteria identified Anaer cx Nom (Unsp spec)Ordered By: Dwayne Palumbo on 12-16-2022 Anaerobic Culture Bacteroides vulgatus [facility] Bacteria identified Cx Nom ( Wound)Ordered By: Dwayne Palumbo on 12-16-2022 Wound Culture Escherichia coli [facility] Basophil percentageOrdered B y: Jesse Haywood on 12-16-2022 Bilirubin [Mass/Vol] 2.00 mg/dL 0.20-1.00 [facility] Comment on above: For patients on eltr ombopag therapy, use of Dimension Vershire TBIL is not recommended. Protein [Mass/Vol] 6.4 g/dL 6.4-8.2 [facility] Gram stain for investigation of transfusion reactionOrdered By: Dwayne Palumbo on 12-16-2022 Microscopic observation Gram stain Nom (Unsp spec) [facility] INR in Blood by Coagulation assayOrdered By: Emmanuel Kohler on 12-16-2022 INR Coag (Bld) [Relative time] 1.3 {INR} [facility] Laboratory - Chemistry and C hemistry - challengeOrdered By: Jesse Haywood on 12-16-2022 ALP [Catalytic activity/Vol] 278 U/L 45-[address] [facility] ALT [Catalytic activity/Vol] 132 U/L 16-[address] [facility] Globulin (S) [Mass/Vol] 4.2 g/dL 2.2-4.2 [facility] Laboratory - CoagulationOrde red By: Emmanuel Kohler on 12-16-2022 PT Coag (PPP) [Time] 16.5 s 11.7-14.9 [facility] Serum or plasma albumin akash urement (mass/volume)Ordered By: Jesse Haywood on 12-16-2022 Albumin [Mass/Vol] 2.2 g/dL 3.2-5.0 [facility] Serum or plasma albumin/glob ulin mass ratioOrdered By: Jesse Haywood on 12-16-2022 Albumin/Globulin [Mass ratio] 0.5 {ratio} 0.9-2.[address] [facility] Thin prep Papanicolaou smear with manual screeningOrdered By: Jesse Haywood on 12-16-2022 Thin prep Papanicolaou smear with manual screening 74 U/L 15-[address] [facility] Blood manual differential co mment interpretation (narrative result)Ordered By: Jesse Haywood on 12-15-2022 Manual differential comment Ghassan (Bld) [Interp] COMMENT [facility] Comment on above: MONOCYTOSIS. Laboratory - CoagulationOrde red By: Jesse Wang on 12-15-2022 aPTT Coag (Bld) [Time] 38.5 s 24.1-36.2 [facility] No Panel InformationOrdered By: Jesse Wang on 12-15-2022 Thyroid Stimulating Hormone (TSH) 1.50 uIU/mL 0.358-3.[address] [facility] Review by pathologistOrdered By: Jesse Haywood on 12-15-2022 Pathologist review Ghassan (Unsp spec) [Interp] Reviewed [facility] Comment on above: Previous reported re sult: Stacy noonan Edited by: [email or web address] on 12/15/22:1321Neutrophilic leukocytosis.Clinical correlation necessary.Raymond Knox M.D. 12/15/22 AMENDED REPORT 12/15/22 1321 PATH REV previously reported as: Stacy noonan Whole blood hemoglobin A1c/t otal hemoglobin ratio (mass fraction)Ordered By: Jesse Wang on 12-15-2022 HbA1c (Bld) [Mass fraction] 6.9 % 3.8-5.[address] [facility] Comment on above: Normal < 5.7 % Predi abetic 5.7 - 6.4 % Diabetic >or= 6.5 % Please note range changes. BLOOD TB SCREENon 09-02-2022 M. tuberculosis tuberculin stim IFN-g Ql (Bld) Negative [facility] Mitogen minus Nil 5.42 IU/mL >=0.50 IU/mL [facility] TB Gamma Interpretation Infection with M . tuberculosis complex is unlikely. If latent tuberculosis infection is highly suspected, a negative result does not rule out the infection. Specimens from immunocompromised patients and those <5 years of age may show false negative results. In case of a contact investigation, please repeat 8-12 weeks after a known exposure. [facility] TB Nil 0.02 IU/mL <=8.00 IU/mL [facility] TB1 Ag minus Nil 0.00 IU/mL <0.35 IU/mL [facility] TB2 Ag minus Nil <0.35 IU/mL [facility] CBC W Auto Differential pane l (Bld)on 09-02-2022 Anisocytosis Ql (Bld) Present [facility] Basophils (Bld) [#/Vol] 0.00 10*3/uL <0.11 k/uL [facility] Basophils/100 WBC (Bld) 0.0 % [facility] Differential cell count method Nom (Bld) Manual [facility] Eosinophils (Bld) [#/Vol] 0.14 10*3/uL <0.46 k/ uL [facility] Eosinophils/100 WBC (Bld) 1.0 % [facility] Erythrocyte distribution width (RBC) [Ratio] 16.4 % High 11.5 - 15.0 % [facility] Hematocrit (Bld) [Volume fraction] 45.3 % 39.0 - 51.0 % [facility] Hemoglobin (Bld) [Mass/Vol] 14.4 g/dL 13.0 - 17.0 g/dL [facility] Lymphocytes (Bld) [#/Vol] 1.43 10*3/uL 1. 00 - 4.00 k/uL [facility] Lymphocytes/100 WBC (Bld) 10.0 % [facility] MCH (RBC) [Entitic mass] 29.9 pg 26. 0 - 34.0 pg [facility] MCHC (RBC) [Mass/Vol] 31.8 g/dL 30.5 - 36.0 g/dL [facility] MCV (RBC) [Entitic vol] 94.0 fL 80.0 - 100.0 fL [facility] [place] % 1.0 % [facility] Monocytes (Bld) [#/Vol] 1.00 10*3/uL High <0.87 k/uL [facility] Monocytes/100 WBC (Bld) 7.0 % [facility] Neutrophils (Bld) [#/Vol] 11.57 10*3/uL High 1 .45 - 7.50 k/uL [facility] Neutrophils/100 WBC (Bld) 81.0 % [facility] Nucleated RBC (Bld) [#/Vol] <0.01 k/uL [facility] Nucleated RBC/100 WBC (Bld) [Ratio] 0.0 /100 WBC [facility] Ovalocytes LM Ql (Bld) Few Cl [facility] Platelet mean volume (Bld) [Entitic vol] 11.1 fL 9.0 - 12.7 fL [facility] Platelets (Bld) [#/Vol] 282 10*3/uL 150 - 400 k/uL [facility] Platelets Estimate (Bld) [#/Vol] Adequate [facility] Polychromasia LM Ql (Bld) Slight [facility] RBC (Bld) [#/Vol] 4.82 10*6/uL 4.20 - 6.0 0 m/uL [facility] Red Cell Morph Reviewed: see result s of individual morphologies [facility] WBC (Bld) [#/Vol] 14.29 10*3/uL High 3.70 - 11.00 k/uL [facility] WBC Left Shift Ql (Bld) Present [facility] C-REACTIVE PROTEIN (CRP)on 0 09-01-2022 CRP [Mass/Vol] <0.9 mg/dL [facility] Comprehensive metabolic 2000 panelon 09-01-2022 Albumin [Mass/Vol] 4.0 g/dL 3.9 - 4.9 g/dL [facility] ALP [Catalytic activity/Vol] 88 U/L 38 - 113 U/L [facility] ALT [Catalytic activity/Vol] 19 U/L 10 - 54 U/L [facility] Anion gap [Moles/Vol] 11 mmol/L 9 - 18 mmol/L [facility] AST [Catalytic activity/Vol] 19 U/L 14 - 40 U/L [facility] Bilirubin [Mass/Vol] 0.5 mg/dL 0.2 - 1 .3 mg/dL [facility] Calcium [Mass/Vol] 9.4 mg/dL 8.5 - 10. 2 mg/dL [facility] Chloride [Moles/Vol] 106 mmol/L High 97 - 10 5 mmol/L [facility] CO2 [Moles/Vol] 21 mmol/L Low 22 - 30 mmol/L [facility] Creatinine [Mass/Vol] 2.01 mg/dL High 0.73 - 1.22 mg/dL [facility] Estimated Glomerular Filtration Rate 33 mL/min/1.73m Low >=60 mL/min/1.73 m [facility] Glucose [Mass/Vol] 146 mg/dL High 74 - 99 mg/dL [facility] Potassium [Moles/Vol] 4.5 mmol/L 3.7 - 5.1 mmol/L [facility] Protein [Mass/Vol] 7.2 g/dL 6.3 - 8.0 g/dL [facility] Sodium [Moles/Vol] 138 mmol/L 136 - 144 mmol/L [facility] Urea nitrogen [Mass/Vol] 50 mg/dL High 9 - 24 mg/dL [facility] ESR Westergren method (Bld) [Velocity]on 09-01-2022 ESR (Bld) [Velocity] 31 mm/h High 0 - 15 mm/hr [facility] VITAMIN D 25 HYDROXYon 09-01 25-hydroxyvitamin D3 [Mass/Vol] 27.8 ng/mL Low 31.0 - 80.0 ng/mL [facility] LABORATORYOrdered By: Michelle Gardner on 01-13-2022 Blood Glucose Testing Reason Routine (01/13/22 11:36 AM) [facility] Work Phone: Glucose [Mass/Vol] 101 mg/dL Invalid Interpretation Code 82 - 115 mg/dL [facility] Work Phone: Blood Glucose Testing Reason Routine (01/13/22 7:06 AM) [facility] Work Phone: Glucose [Mass/Vol] 87 mg/dL Invalid Interpretation Code 82 - 115 mg/dL [facility] Work Phone: LABORATORYOrdered By: SYSTEM SYSTEM [...] Glucose Testing Reason Routine (01/12/22 8:59 PM) [facility] Work Phone: Glucose [Mass/Vol] 153 mg/dL Invalid Interpretation Code 82 - 115 mg/dL [facility] Work Phone: LABORATORYOrdered By: Adali Spencer [...] Comment on above: Result Comment: [place] [id number] FLU B PCR Negative 8 (01/12/22 10:33 AM) Invalid Interpretation Code Negative AH [facility] [employer]Sero SS Comment on above: Result Comment: [place] [id number] Hospitalized Yes (01/12/22 10:33 AM) Invalid Interpretation [...] Comment on above: Result Comment: [place] [id number] SARS-CoV-2 (COVID-19) RNA ARIELLE+probe Ql (Unsp spec) Negative 6 (01/12/22 10:33 AM) Invalid Interpretation Code Negative AH [employer] SS Comment on above: Result Comment: Note s [id number] Symptomatic as Defined by CDC No (01/12/22 [...] Glucose Interventions Administered food/juice (01/06/22 8:38 AM) [facility] Work Phone: LABORATORYOrdered By: SYSTEM SYSTEM [...] Interpretation Code BB Manual SS LABORATORYOrdered By: [employer] SYSTEM on 01-04-2022 Albumin BCP dye [Mass/Vol] [...] Blood Glucose Interventions Retest (12/30/21 8:53 AM) [facility] Work Phone: LABORATORYOrdered By: Rohan Rivero [...] to increase blood sugar (12/30/21 8:32 AM) [facility] Work Phone: Hemoglobin A1con 08-04-2021 Glucose [Mass/Vol] 258 mg/dL Normal [facility] Reference Lab Comment on above: Performed By: #### H BA1C #### [facility] Laboratories Routine Lab [address] [place], [place] [id number] HbA1c (Bld) [Mass fraction] 10.6 % High 4.3-5.6 [facility] Reference Lab Comment on above: Performed By: #### H BA1C #### [facility] Laboratories Routine Lab [address] [place], [place] [address] Glucose,Bedsideon 02-09-2021 Glucose [Mass/Vol] 185 mg/dL High 70-100 [facility] Twitter Comment on above: Result Comment: Test performed by glucose meter. Results may be 10%-15% lower than serum/plasma values. (CLIA ID [id number]) Performed By: #### B GLU #### [employer] [address] [place] [phone] Glucose [Mass/Vol] 284 mg/dL High 70-100 [facility] [employer] [facility] Comment on above: Result Comment: Test performed by glucose meter. Results may be 10%-15% lower than serum/plasma values. (CLIA ID [id number]) Performed By: #### B GLU #### [facility] [employer] [facility] [address] [place] [address] OPERATIVE REPORTOrdered By: 3m Scanning on 02-09-2021 [employer] Work Phone: Op Noteon 02-09-2021 Op Note [facility] l Dictation: Topical Anesthesia Note Patient Name: Elizabeth Modi : 1940 Date of Procedure: 02/09/2021 Surgeon: Ammy Vicente M.D. Clinical Study Manager: Rachel Elder MD Anesthesia: Monitored Anesthesia Care [...] then created using a cystotome and utrata forceps.Franklin-dissecti on and hydro-delineation were then performed. Phacoemulsification [...] or any other concerns. Operative Note Normal [employer] POCT GlucoseOrdered By: Gayatri Vicente on 02-09-2021 Glucose [Mass/Vol] 185 mg/dL High 70 - 100 mg/dL [employer] Work Phone: Comment on above: Test performed by [employer] ucose meter. Results may be 10%-15% lower than serum/plasma values. (CLIA ID [id number]) Interpretation and review of laboratory results Abnormal [employer] Work Phone: Test Performed by [employer], [address] [place] [address] [employer] Work Phone: [employer] Work Phone: Glucose [Mass/Vol] 284 mg/dL High 70 - 100 mg/dL [employer] Work Phone: Comment on above: Test performed by [employer] ucose meter. Results may be 10%-15% lower than serum/plasma values. (CLIA ID [id number]) Interpretation and review of laboratory results Abnormal [employer] Work Phone: Test Performed by [employer], [address] [place] [address] [employer] Work Phone: [employer] Work Phone: Hemoglobin A1con 12-03-2020 Glucose [Mass/Vol] 194 mg/dL Normal [facility] Reference Lab Comment on above: Performed By: #### H BA1C #### [facility] Laboratories Routine Lab [address], [place] [id number] HbA1c (Bld) [Mass fraction] 8.4 % High 4.3-5.6 [facility] Reference Lab Comment on above: Performed By: #### H BA1C #### [facility] Laboratories Routine Lab [address], [place] [id number] ECHOCARDIOGRAM LIMITED/FOLLO WUPon 11-13-2020 ECHOCARDIOGRAM LIMITED/FOLLOWUP ? [...] 06/08/2020, LV function has improved. Facility [facility] Patient Information Patient Name Elizabteh Modi Legal Sex Male Indication for Exam [...] Role Read Date Dwayne Carrasco MD [facility] [place] 11/13/2020 Left Heart Measurements LV - Systole [...] patient's inability to turn. Imaging system used: [employer]. Exam Details Performed Procedure (more content not included)... Normal [facility] Hemoglobin A1con 09-10-2020 Glucose [Mass/Vol] 177 mg/dL Normal [facility] Reference Lab Comment on above: Performed By: #### H BA1C #### [facility] Laboratories Routine Lab [address] [place], [place] [address] HbA1c (Bld) [Mass fraction] 7.8 % High 4.3-5.6 [facility] Reference Lab Comment on above: Performed By: #### H BA1C #### [facility] Laboratories Routine Lab [address] [place], [place] [address] CNPYessenia 05-20-2020 CNPN Telephone (AGVASACC) ELIZABETH MOID ([id number]) 1940 M Date Time Provider Department 05/20/20 [...] disease) (HCC) [I73.9] 12/07/2019 Below knee amputation ([facility]) [S88.119A] 12/07/2019 Nonhealing surgical wound [T81.89XA] 12/09/2019 Encounter Status:Closed by ZOLTAN EWING on 05/20/20 [facility] JONAS Telephone (AGVASACC) ELIZABETH MODI ([id number]) 1940 M Date Time Provider Department 05/20/20 RYAN ALLEN During your visit today, we recorded the following information about you: Bren Santos 05/20/2020 2:52 PM Signed I have received a call from the daughter Angelic and she stated her father is in the hospital in [place] where he has had great toe removed [...] [facility] PROGRESSon 05-18-2020 PROGRESS HNO ID: [id number] Author: Ryan Allen Service: ? Author Type: [...] Anxiety and depression - DM (diabetes mellitus) ([facility]) - Dyslipidemia - HTN (hypertension) - Hypothyroidism - PVD (peripheral vascular disease) ([facility]) - Renal mass PAST SURGICAL [...] MG DAILY@0800 October 12, 2019 7:37am 10-12-[address] [facility] ([id number]) - gabapentin (NEURONTIN) 600 mg tablet Take [...] encounter diagnosis) (I73.9) PVD (peripheral vascular disease) ([facility]) (E11.69) Type 2 diabetes mellitus with other specified complication, without long-term current use of insulin ([facility]) (S91.302A) Open wound of left [...] this point. Given the state of the [facility] emergency room at this junction it may be better to have him seen locally at [facility] and see if some antibiotic therapy at least overnight might be worth a try. Possible transfer from there would depend on his stability and the bed availability here at [facility] There are no Patient Instructions on file for this visit. Ryan Allen MD [facility] Bas Metab 2000 Pnl SerPlon 1 07-15-2019 Anion gap [Moles/Vol] 13 mmol/L Normal 9-18 [facility] Comment on above: Order Comment: Speci men Type: BLOOD SPECIMEN Performed By: #### 2 4321-2 #### [facility] CLIA [id number] [address] [place] [address] Calcium [Mass/Vol] 9.8 mg/dL Normal 8.5-10.2 [facility] Comment on above: Order Comment: Speci men Type: BLOOD SPECIMEN Performed By: #### 2 4321-2 #### [facility] CLIA [id number] [address] [place] [address] Chloride [Moles/Vol] 102 mmol/L Normal 97-105 [facility] Comment on above: Order Comment: Speci men Type: BLOOD SPECIMEN Performed By: #### 2 4321-2 #### [facility] CLIA [id number] [address] [place] [address] CO2 [Moles/Vol] 24 mmol/L Normal 22-30 [facility] Comment on above: Order Comment: Speci men Type: BLOOD SPECIMEN Performed By: #### 2 4321-2 #### [facility] CLIA [id number] [address] [place] [address] Creatinine [Mass/Vol] 0.95 mg/dL Normal 0.73-1.22 [facility] Comment on above: Order Comment: Speci men Type: BLOOD SPECIMEN Performed By: #### 2 4321-2 #### [facility] CLIA [id number] [address] [place] [address] GFR/1.73 sq M.predicted MDRD (S/P/Bld) [Vol rate/Area] [...] Performed By: #### 2 4321-2 #### [facility] CLIA [id number] [address] [place] [address] Glucose [Mass/Vol] 214 mg/dL High 74-99 [facility] Comment on above: Order Comment: Speci men Type: BLOOD SPECIMEN Result Comment: The [place] Diabetes Association (ADA) provides guidance for cutoff [...] Standards of Medical Care in Diabetes 2016, [place] Diabetes Association. Diabetes Care. 2016.39(Suppl 1). Performed By: #### 2 4321-2 #### [facility] CLIA [id number] [address] [place] [address] Potassium [Moles/Vol] 4.9 mmol/L Normal 3.7-5.1 [facility] Comment on above: Order Comment: Speci men Type: BLOOD SPECIMEN Performed By: #### 2 4321-2 #### [facility] CLIA [id number] [address] [place] [address] Sodium [Moles/Vol] 139 mmol/L Normal 136-144 [facility] Comment on above: Order Comment: Speci men Type: BLOOD SPECIMEN Performed By: #### 2 4321-2 #### [facility] CLIA [id number] [address] [place] [address] Urea nitrogen [Mass/Vol] 31 mg/dL High 9-24 [facility] Comment on above: Order Comment: Speci men Type: BLOOD SPECIMEN Performed By: #### 2 4321-2 #### [facility] CLIA [id number] [address] [place] [address] CBC (hemogram) Bld [employer] Erythrocyte distribution width (RBC) [Ratio] 12.8 % Normal 11.5-15.0 [facility] Comment on above: Order Comment: Speci men Type: BLOOD SPECIMEN Performed By: #### 5 8410-2 #### [facility] CLIA [id number] [address] [place] [address] Hematocrit (Bld) [Volume fraction] 43.5 % Normal 39.0-51.0 [facility] Comment on above: Order Comment: Speci men Type: BLOOD SPECIMEN Performed By: #### 5 8410-2 #### [facility] CLIA [id number] [address] [place] [address] Hemoglobin (Bld) [Mass/Vol] 14.1 g/dL Normal 13.0-17.0 [facility] Comment on above: Order Comment: Speci men Type: BLOOD SPECIMEN Performed By: #### 5 8410-2 #### [facility] CLIA [id number] [address] [place] [address] MCH (RBC) [Entitic mass] 29.5 pg Normal 26.0-34.0 [facility] Comment on above: Order Comment: Speci men Type: BLOOD SPECIMEN Performed By: #### 5 8410-2 #### [facility] CLIA [id number] [address] [place] [address] MCHC (RBC) [Mass/Vol] 32.4 g/dL Normal 30.5-36.0 [facility] Comment on above: Order Comment: Speci men Type: BLOOD SPECIMEN Performed By: #### 5 8410-2 #### [facility] CLIA [id number] [address] [place] [address] MCV (RBC) [Entitic vol] 91.0 fL Normal 80.0-100.0 [facility] Comment on above: Order Comment: Speci men Type: BLOOD SPECIMEN Performed By: #### 5 8410-2 #### [facility] CLIA [id number] [address] [place] [address] Nucleated RBC (Bld) [#/Vol] 10*3/uL Normal <0.01 [facility] Comment on above: Order Comment: Speci men Type: BLOOD SPECIMEN Performed By: #### 5 8410-2 #### [facility] CLIA [id number] [address] [place] [address] Platelet mean volume (Bld) [Entitic vol] 10.4 fL Normal 9.0-12.7 [facility] Comment on above: Order Comment: Speci men Type: BLOOD SPECIMEN Performed By: #### 5 8410-2 #### [facility] CLIA [id number] [address] [place] [address] Platelets (Bld) [#/Vol] 367 10*3/uL Normal 150-400 [facility] Comment on above: Order Comment: Speci men Type: BLOOD SPECIMEN Performed By: #### 5 8410-2 #### [facility] CLIA [id number] [address] [place] [address] RBC (Bld) [#/Vol] 4.78 10*6/uL Normal 4.20-6.00 [facility] Comment on above: Order Comment: Speci men Type: BLOOD SPECIMEN Performed By: #### 5 8410-2 #### [facility] CLIA [id number] [address] [place] [address] WBC (Bld) [#/Vol] 11.87 10*3/uL High 3.70-11.00 [facility] Comment on above: Order Comment: Speci men Type: BLOOD SPECIMEN Performed By: #### 5 8410-2 #### [facility] CLIA [id number] [address] [place] [address] [facility] 05-15-2020 CNPN Telephone (RUBYACC) ELIZABETH MODI ([id number]) 1940 M Date Time Provider Department 05/15/20 [...] Allergies) Date Reviewed: 05/15/2020 Reviewed by: Sunshine ([facility]) Kimberly - Fully Assessed Reason for [...] a calculated value from HgbA1c and is chain sales representative of the average blood glucose level in the last 2-3 month period. Performed By: #### H BA1C ####[facility] [id number] [place] [address] HbA1c (Bld) [Mass fraction] 8.2 % High 4.3-5.6 [facility] Comment on above: Order Comment: Speci men Type: BLOOD SPECIMEN Result Comment: [place] Diabetes Association guidelines indicate that patients with HgbA1c in the range 5.7-6.4% are at increased risk for development of diabetes, and intervention by lifestyle modification may be beneficial. HgbA1c greater or equal to 6.5% is considered diagnostic of diabetes. Performed By: #### H BA1C ####[facility] [id number] [place] [id number] HISTORY PHYSICALon 0 HISTORY PHYSICAL HNO ID: [id number] Author: Sunshine Harris Service: ? Author Type: [...] Moderate Degree (Hcc) Pvd (Peripheral Vascular Disease) ([facility]) Below Knee Amputation (Hcc) Nonhealing Surgical Wound [...] Anxiety and depression - DM (diabetes mellitus) ([facility]) - Dyslipidemia - HTN (hypertension) - Hypothyroidism - PVD (peripheral vascular disease) ([facility]) PAST SURGICAL HISTORY Procedure Laterality [...] MG DAILY@0800 October 12, 2019 7:37am 10-12-[address] [facility] ([id number]) Taking Yes gabapentin (NEURONTIN) 600 mg tablet [...] managed by PCP. no recent A1C in [facility], most recent BG check from 12/11/2019 was 126. will get A1C at [facility] Former Smoker- quit in 1989, [...] COVID, ECG, PT, CBC, BMP ordered in [facility] per surgeon. CONSULTS: No consults pending. Instructions Given to Patient: Patient given verbal and written preop instructions and voices comprehension and compliance. Antimicrobial soap and instructions given to patient. SIGNATURE: Sunshine Harris APRN.GURWINDER PATIENT NAME: Elizabeth Modi DATE: May 13, 2020 TIME: 3:32 PM PAGER/CONTACT #: Mela [facility] PT Pnl PPPon 05-15-2020 INR Coag (PPP) [Relative time] 1.0 {INR} Normal 0.9-1.3 [facility] Comment on above: Order Comment: Speci men Type: BLOOD SPECIMEN Result Comment: Radha min K Antagonist (VKA) Therapeutic Range: INR 2 to 3 (Target INR of 2.5) Note: For patients treated with VKA drugs, such as warfarin, the [place] [employer] 2012 Guideline recommends [...] Chest 2012, 141:7S-47S Dada RA, et al. [facility] 2017, 70: 252-289 Performed By: #### 3 4528-0 #### [facility] CLIA [id number] [address] [place] [address] PT Coag (PPP) [Time] 10.6 s Normal 9.7-13.0 [facility] Comment on above: Order Comment: Speci men Type: BLOOD SPECIMEN Performed By: #### 3 4528-0 #### [facility] CLIA [id number] [address] [place] [address] PT EDon 05-13-2020 PT ED HNO ID: [id number] Author: Jeni Izquierdo) KAVIN Shoemaker Service: ? [...] Department: [place] SURGERY OR Normal [facility] PROGRESSon 04-29-2020 PROGRESS HNO ID: [id number] Author: Ryan Allen Service: ? Author Type: Physician Type: Progress Notes Filed: 04/29/2020 7:08 PM Note Text: This note was partially generated using [employer] voice recognition system. I spent 15+ minutes in the visit, with more than 50% of the total pddn-nb-oojp time of the visit in counseling / [...] currently taking aspirin: Yes Normal [facility] CNOVon 04-28-2020 [facility] Office Visit (AGVASACC) ELIZABETH MODI ([id number]) 1940 M Date Time Provider Department 04/28/20 11:00 AM RYAN ALLEN AGJERZY During your visit today, we recorded the following information about you: Temperature Blood pressure Weight Height 80 degrees 134/60 88 kg 1.778 m Ryan Allen MD 04/29/2020 7:08 PM Signed This note was partially generated using [employer] voice recognition system. I spent 15+ minutes in the visit, with more than 50% of the total wfae-ao-prqu time of the visit in counseling / [...] runoffs Primary Visit Diagnosis:PVD (peripheral vascular disease) ([facility]) [I73.9] Other Visit Diagnoses:Nonhealing nonsurgical [...] (HCC) [E44.0] 08/22/2019 PVD (peripheral vascular disease) ([facility]) [I73.9] 12/07/2019 Below knee amputation (HCC) [S88.119A] 12/07/2019 Nonhealing surgical wound [T81.89XA] 12/09/2019 Disposition: Return in about 4 weeks (around 05/26/2020). Follow-up and Disposition History Recorded Letter Text Encounter Status:Closed by RYAN ALLEN MD on 04/29/20 [facility] Beau 04-28-2020 JONAS Telephone (AGFlatiron SchoolACC) ELIZABETH MODI ([id number]) 1940 M Date Time Provider Department 04/28/20 [...] Covid is 05/23/20 @ 1130 am at [facility] Post OP is 06/23/20 @ 10 am with Devin Mailed 04/30/20 shaila Lambert has been notified of dates and times. Allergies As of Date: 04/28/2020 (No Known Allergies) Date Reviewed: 04/28/2020 Reviewed by: Luke Alfaro) Austin - Fully Assessed Reason for Visit: Schedule Surgery [1330] Primary Visit Diagnosis:PVD (peripheral vascular disease) (HCC) [I73.9] Order(s):SURGICAL REQUEST - ELECTIVE (01/2020) [4544536] Order #: [id number]: 1 HANDP FOR SURGERY [E3609KLC] Order #: [id number] PRE-PROCEDURE AND PRE-OPERATIVE COVID [SQPOCOVD] Order #: [id number] FUTURE CBC [SQCBC] Order #: [id number] FUTURE BASIC METABOLIC PNL [SQBMP] Order #: [id number] FUTURE PROTHROMBIN TIME/PT [SQPT] Order #: [id number] FUTURE ECG COMPLETE [ECG01] Order #: [id number] FUTURE Prescriptions as of 04/28/2020 Sig: ASPIRIN [...] (HCC) [E44.0] 08/22/2019 PVD (peripheral vascular disease) ([facility]) [I73.9] 12/07/2019 Below knee amputation (HCC) [S88.119A] 12/07/2019 Nonhealing surgical wound [T81.89XA] 12/09/2019 Encounter Status:Closed by MARIA ESTHER GUSMAN CNP on 04/28/20 [facility] CNOVon 04-21-2020 CNOV Office Visit (AKURFL ) ELIZABETH MODI ([id number]) 1940 M Date Time Provider Department 04/21/20 1:30 PM YADI WHITE During your visit today, we recorded the following information about you: Weight Height 88 kg 1.778 m Yadi White DO, MBA 04/21/2020 3:13 PM Signed ?? [facility] [place] [facility] LOCATION: [address] [place] [address] NEW CONSULT VISIT PATIENT INFO: Elizabeth Modi [...] MG DAILY@0800 October 12, 2019 7:37am 10-12-[address] [facility] ([id number]) gabapentin (NEURONTIN) 600 mg tablet Take 600 [...] with more than 50% of the total ylfi-pb-moxn time of the visit in counseling / coordination of care. Yadi White DO MBA Letter to: Dexter Reyes MD Referring Provider: DEXTER REYES CHI [[id number]] Allergies As of Date: 04/21/2020 (No Known Allergies) Date Reviewed: 04/21/2020 Reviewed by: Yadi White - Fully Assessed Reason for Visit: Kidney Problem [61] Visit Diagnosis:Other specified disorders of kidney and ureter [N28.89] Order(s):CT KIDNEY WO/W IVCON [[id number]] Order #: [id number] FUTURE iv contrast (will be provided with [...] [facility] PROGRESSon 04-21-2020 PROGRESS HNO ID: [id number] Author: Yadi White Service: ? Author Type: Physician Type: Progress Notes Filed: 04/21/2020 3:13 PM Note Text: ?? [facility] [place] [facility] LOCATION: [address] [place] [address] NEW CONSULT VISIT PATIENT INFO: Elizabeth Modi [...] MG DAILY@0800 October 12, 2019 7:37am 10-12-[address] [facility] ([id number]) gabapentin (NEURONTIN) 600 mg tablet Take 600 [...] with more than 50% of the total mcie-mh-sofs time of the visit in counseling / coordination of care. Yadi White DO MBA Letter to: Dexter [facility]yes MD [facility] Office Visit (AGVASACC) ELIZABETH MODI ([id number]) 1940 M Date Time Provider Department 03/31/20 11:00 AM RYAN ALLEN During your visit today, we recorded the following information about you: Pulse Respiration Blood pressure Weight 78/minute 18/minute 124/70 88 kg Height 1.778 m Ryan Allen MD 03/31/2020 12:50 PM Signed I spent 15+ minutes in the visit, with more than 50% of+ the total ioyd-ex-dkyz time of the visit in counseling / coordination of care. This note partially generated using Chobani voice recognition system. Mr. Modi and his daughter were seen in the office today for follow-up of his peripheral vascular disease. He's feeling up a complicated wound in the right below-knee stump but also has a left great toe nonhealing wound. I believe this is being followed by the fashion editor or the wound care center in the [facility]. He also notes that the prosthetic company is having trouble getting appropriate authorization for his prosthesis. Since the patient left I have call that office, [facility] [employer]. We have left a message from then [...] appropriate authorization for were reviewed needs from [employer]. He has had a urologist in the past but can't remember the name in the [facility]. I would refer to the primary care office if they feel appropriate urologist is available locally in this patient. If not we will be happy to refer to a urologist in the [facility]. Hopefully within the next few weeks [...] Reason for Visit: Peripheral Vascular Disease (PVD) [5905] Cmt: Elizabeth is here to review 02/28/20 [...] Psychiatric Center PROGRESSon 03-31-2020 PROGRESS HNO ID: [id number] Author: Ryan Allen Service: ? Author Type: Physician Type: Progress Notes Filed: 03/31/2020 12:50 PM Note Text: I spent 15+ minutes in the visit, with more than 50% of+ the total xged-fd-dikx time of the visit in counseling / coordination of care. This note partially generated using Chobani voice recognition system. Mr. Modi and his daughter were seen in the office today for follow-up of his peripheral vascular disease. He's feeling up a complicated wound in the right below-knee stump but also has a left great toe nonhealing wound. I believe this is being followed by the fashion editor or the wound care center in the [facility]. He also notes that the prosthetic company is having trouble getting appropriate authorization for his prosthesis. Since the patient left I have call that office, [facility] [employer]. We have left a message from then [...] appropriate authorization for were reviewed needs from [employer]. He has had a urologist in the past but can't remember the name in the [facility]. I would refer to the primary care office if they feel appropriate urologist is available locally in this patient. If not we will be happy to refer to a urologist in the [facility]. Hopefully within the next few weeks [...] statin and aspirin medications. Normal [facility] CNPNon 03-04-2020 CNPN Telephone (AGFlatiron SchoolACC) ELIZABETH MODI ([id number]) 1940 M Date Time Provider Department 03/04/20 [...] disease) (HCC) [I73.9] 12/07/2019 Below knee amputation ([facility]) [S88.119A] 12/07/2019 Nonhealing surgical wound [T81.89XA] 12/09/2019 Encounter Status:Closed by GARRICKBOYD LUDIVINA on 03/04/20 Normal [facility] CTA ABD/PEL/LOWER EXT WO/W I VCONon 02-28-2020 CTA ABD/PEL/LOWER EXT WO/W IVCON Final Report DATE OF EXAM: Feb 28 2020 4:00PM [facility] 0465 - CTA ABD/PEL/LOWER EXT WO/W IVCON / PROCEDURE REASON: multiple diagnoses Physician Interpretation EXAMINATION: CTA ABD/PEL/LOWER EXT WO/W IVCON Exam Date: 02/28/2020 4:00 PM CLINICAL HISTORY: Ischemia of lower extremity PVD (peripheral vascular disease) ([facility]) Technique: Helical CT of the abdomen, pelvis [...] renal protocol CT or MRI. 2. Right hlijk-fxz-aqjt amputation. No subcutaneous fat stranding or fluid collection. Other chronic findings, as above. Homicide Investigator: ONEL Transcribe Date/Time: Mar 02 2020 2:59P Dictated by : ANDRE BUI MD This examination was interpreted and the report reviewed and electronically signed by: ANDRE BUI MD on Mar 02 2020 3:31PM EST Normal [facility] CNOVon 02-13-2020 CN Office Visit (AGVASACC) ELIZABETH MODI ([id number]) 1940 M Date Time Provider Department 02/13/20 1:30 PM MARIA ESTHER GUSMAN (LASER SPECIALIST, GURWINDER)LUCRECIA During your visit today, we recorded the following information about you: Pulse Respiration Blood pressure Weight 76/minute 18/minute 118/64 88 kg Height 1.778 m Maria Esther Gusman APRN.GURWINDER, INTERVENTIONAL RADIOLOGY RN 02/13/2020 4:20 PM Signed Elizabeth Modi 79 [...] He has not been in contact with [employer] in some time, as he was advised to wait until cleared from the wound vac. Additionally, he reports that he's been seeing a certified coding specialist for the wounds on his left [...] Stable post op; OK to follow-up with [employer] for RLE prosthetic; Will discuss with Dr. Allen plan for evaluation/treatment of LLE with continued wounds. PLAN: Will proceed with CTA to further evaluation LLE at this time. Pt encouraged to call with any questions, problems, concerns, or changes. The patient is currently taking a statin: Yes The patient is currently taking aspirin: Yes Maria Esther Gusman APRN.INTERVENTIONAL RADIOLOGY RN Referring Provider: SELF [200] Allergies As of [...] [I99.8] Order(s):CTA ABD/PEL LOWER EXTREM WO/W IVCON [[id number]] Order #: [id number] FUTURE iv contrast (will be provided with [...] EachRfl: 0 CREATININE BLD [SQCRET] Order #: [id number] FUTURE Prescriptions as of 02/13/2020 Sig: INSULIN [...] [facility]iatric Center PROGRESSon 02-13-2020 PROGRESS HNO ID: [id number] Author: Maria Esther (Drone Software Development Engineer High Density Finishing Operator) GURWINDER Gusman Service: ? Author Type: Nurse [...] He has not been in contact with [employer] in some time, as he was advised to wait until cleared from the wound vac. Additionally, he reports that he's been seeing a certified coding specialist for the wounds on his left [...] Stable post op; [facility]; Will discuss with [...] [facility] Beau 02-05-2020 JONAS Telephone (AGFlatiron SchoolACC) ELIZABETH MODI ([id number]) 1940 M Date Time Provider Department 02/05/20 RYAN ALLEN During your visit today, we recorded the following information about you: Luke Pérez LPN 02/05/2020 10:51 AM Signed Millie from [facility] called stating that there has been [...] 02/05/2020 11:24 AM Signed Relayed information to [facility] nurse. Acknowledged new order for wet [...] 01-08-2020 CNOV Office Visit (RUBYACC) ELIZABETH MODI ([id number]) 1940 M Date Time Provider Department 01/08/20 3:30 PM RYAN ALLEN During your visit today, we recorded the following information about you: Pulse Respiration Blood pressure Weight 78/minute 18/minute 126/70 88.9 kg Height 1.778 m Ryan Allen MD 01/08/2020 4:01 PM Signed This note was partially generated using Chobani voice recognition system. Is a postop visit [...] [S88.119A] Other Visit Diagnosis:PVD (peripheral vascular disease) ([facility]) [I73.9] Prescriptions as of 01/08/2020 [...] disease) (HCC) [I73.9] 12/07/2019 Below knee amputation ([facility]) [S88.119A] 12/07/2019 Nonhealing surgical wound [T81.89XA] 12/09/2019 Disposition: Return in about 4 weeks (around 02/05/2020). Follow-up and Disposition History Recorded Letter Text Encounter Status:Closed by RYAN ALLEN MD on [facility]/08/20 [facility] Telephone (LUCRECIA) ELIZABETH MODI ([id number]) 1940 M Date Time Provider Department 01/08/20 RYAN ALLEN During your visit today, we recorded the following information about you: Luke Pérez LPN 01/08/2020 1:18 PM Signed Millie [facility] nurse called to let us know [...] Psychiatric Center PROGRESSon 01-08-2020 PROGRESS HNO ID: [id number] Author: Ryan Allen Service: ? Author Type: [...] make progress with wound. Normal [facility] CASE MANAGEMon 12-11-2019 CASE MANAGEM HNO ID: [id number] Author: Tami (Rn) KAVIN Patricio Service: Care Management Author Type: Registered Nurse Type: Care Mgt Progress Note Filed: 12/11/2019 3:28 PM Note Text: CARE MANAGEMENT DISCHARGE NOTE SERVICE DATE: 12/11/2019 SERVICE TIME: 3:27 PM LOS: 2 days Admission Date: 12/09/2019 DISCHARGE ARRANGEMENT (list agency and phone number) Discharge Arrangement: Home Prison Care: Nursing;OT;PT Provider Name: [facility] Phone: . CAREGIVER ASSESSMENT: Caregiver is ready, willing and able to meet the patient's needs as recommended by the inter-professional team:: Yes Does the patient have an acute stroke diagnosis, or has the patient had a stroke during this admission?: No Patient's transition needs and plan for meeting these needs: Home with [facility]. HANDOFF COMMUNICATION: TRANSPORTATION ARRANGEMENTS: Transportation Arrangements: Car ADDITIONAL CONTACT RESOURCES: Pts wound vac approved through [facility]. SIGNATURE: Tami Patricio RN PATIENT NAME: Elizabeth Modi DATE: December 11, 2019 TIME: 3:27 PM PAGER/CONTACT #: [phone] [facility] CONSULT PROGon 12-11-2019 CONSULT PROG HNO ID: [id number] Author: Adali Murry Service: Wound Care Team Author Type: Nurse Specialist Type: Consult Progress Note Filed: 12/11/2019 2:39 PM Note Text: WOUND CARE CONSULT LASER SPECIALIST NOTE SERVICE DATE: 12/11/2019 SERVICE TIME: 1315 TIME SPENT (minutes): 45 REASON FOR CONSULT: Eval R BKA, wound vac change CHIEF COMPLAINT: c/o open wound to R lateral BKA Subjective HISTORY OF PRESENT ILLNESS: Mr. Modi is a 79 year old male who is seen today with [facility] Wound/plant control aide, and presented to hospital w/ R BKA [...] found under the Get Images tab on [employer]. Photos are uploaded by the wound healthcare associate and may not be immediately available for viewing. Contact the wound and ostomy care department with questions. SIGNATURE: Adali Murry APRN.CNS PATIENT NAME: Elizabeth Modi DATE: December 11, 2019 TIME: 2:24 PM CONTACT#: [id number] Normal [facility] Glucose Meteron 12-11-2019 Glucose [Mass/Vol] 126 mg/dL High 70-99 [facility] Comment on above: Result Comment: KAVIN Briones OTIFIED Performed By: #### M AG #### [facility] [address] [place] [address] OPERATIVE NOon 12-11-2019 OPERATIVE NO HNO ID: [id number] Author: Ryan Allen Service: ? Author Type: Physician Type: Operative Report Filed: 12/11/2019 1:51 PM Note Text: [facility] - Operative Report ELIZABETH MODI : 1940 AGE: 79. SEX: M PATIENT TYPE: I HOSP SV: [place] LOCATION: [facility] ATTENDING PHYSICIAN: RYAN ALLEN CSN NUMBER: [id number] DATE OF SURGERY/PROCEDURE: 12/09/2019 INCISION/PROCEDURE START TIME: 10:54 AM INCISION CLOSE/PROCEDURE END TIME: 11:10 AM PREOPERATIVE DIAGNOSIS: Nonhealing wound, status post right below-knee amputation. POSTOPERATIVE DIAGNOSIS: Nonhealing wound, status post right below-knee amputation. SURGEON: Ryan Allen MD, FACS IT PROGRAM MANAGER: 1. Sunny Brito MD. 2. Mara Godinez SA. SURGERY/PROCEDURE: Irrigation and debridement of right lower extremity wound with placement of wound VAC. ANESTHESIA: General HISTORY: This is a 79-year-old gentleman, who has undergone multiple procedures with the Vascular Service at [facility]. Ultimately, unfortunately this has terminated in a below-knee amputation. In his followup, he was seen at the [facility] office in [place] by Dr. Gordo Figueroa and it was [...] satisfactory postoperative condition. Ryan Allen MD, FACS RGN:[id number] /[id number] cc:Macho Reyes MD [facility] PLAN OF CAREon 12-11-2019 PLAN OF CARE HNO ID: [id number] Author: Olga Parekh (Flatwork Ironer) Service: ? Author Type: ? Type: Plan of Care Filed: 12/11/2019 11:33 AM Note Text: [facility] [facility]ER BEDSIDE DELIVERY SURVEY 1. Patient to use [facility] Bedside Delivery - YES Insurance Information as follows: 2. Insurance card on file - YES 3. Credit card for payment - N/A Please call pharmacy bedside delivery at [phone] or [phone] if patient would like medications filled and delivered prior to discharge. Olga Parekh (Flatwork Ironer) [facility] PROGRESSon 12-11-2019 PROGRESS HNO ID: [id number] Author: Rohan Duran DO Service: Vascular Surgery [...] questions or concerns Mon-Fri 6a-5p please page [phone]. After 5pm and on Weekends and Holidays, please page [phone] if in ICU or [phone] if on RNF. Subjective SUBJECTIVE: NAEON. Did [...] 12/10/19699 - 12/11/1958 12/11/19699 - 12/12/1958 Shift 8423-0920 8485-2315 5241-0619 24 Hour Total 0664-5260 7662-4534 5923-4908 24 Hour Total INTAKE Shift Total OUTPUT Urine 625 698 2866 Void (ml) 951 017 0716 Drains 0 0 Negative Pressure: Output (mL) 0 0 # of BMs Number of BMs 1 x 1 x Shift Total 431 369 0464 Weight (kg) 88.2 88.2 88.2 88.2 88.2 [...] 2174 if on RNF. Normal [facility] PT EDon 12-11-2019 PT ED HNO ID: [id number] Author: Isac Navarro (Pharmacist) Service: Pharmacy Author [...] drug: Cholecalciferol (Vitamin D3) Normal [facility] THERAPY NTon 12-11-2019 THERAPY NT HNO ID: [id number] Author: Maricarmen SantiagoOtr/Vickie Good Service: Occupational Therapy Author Type: Occupational Therapist Type: Therapy (PT/OT/Speech/Resp) Filed: 12/11/2019 3:31 PM Note Text: Occupational Therapy Evaluation SERVICE DATE: 12/11/2019 SERVICE TIME: 1435 to 1459 ROOM: [place] [address] Recommended Discharge Disposition: Home OT Recommended Discharge [...] living (ADL) Interventions Provided: Evaluation $ Evaluation-Moderate (46429) Billed Units: 1 unit OT Evaluation Moderate [...] 2019 TIME: 3:28 PM Normal [facility] THERAPY NT HNO ID: [id number] Author: Marilyn Flores Service: Physical Therapy Author Type: Physical Therapist Type: Therapy (PT/OT/Speech/Resp) Filed: 12/11/2019 2:48 PM Note Text: Physical Therapy Evaluation SERVICE DATE: 12/11/2019 SERVICE TIME: 1341 to 1408 ROOM: [place] [address] Recommended Discharge Disposition: Home PT Recommended Discharge [...] Difficulty walking-musculoskeleta l Interventions Provided: Evaluation;Therapeutic Activity (04912) $ Evaluation-Moderate (75815) Billed Units: 1 unit History and examination of body systems see assessment section above. This patient?s clinical presentation is evolving. The patient required a moderate complexity evaluation. Therapeutic Activity (52242) Treatment Minutes: 11 1 unit Skilled Intervention(s): [...] 2019 TIME: 2:44 PM Normal [facility] Basic Metabolic Panelon 06-2 Anion gap [Moles/Vol] 13 mmol/L Normal 9-18 [facility] Comment on above: Performed By: #### C BC1 #### [facility] [address] [place], [place] [address] Calcium [Mass/Vol] 9.0 mg/dL Normal 8.5-10.2 [facility] Comment on above: Performed By: #### C BC1 #### [facility] [address] [place], [place] [address] Chloride [Moles/Vol] 100 mmol/L Normal 97-105 [facility] Comment on above: Performed By: #### C BC1 #### [facility] [address] [place], [place] [address] CO2 Blood 25 mmol/L Normal 22-30 [facility] Comment on above: Performed By: #### C BC1 #### [facility] [address] [place], [place] [address] Creatinine [Mass/Vol] 1.14 mg/dL Normal 0.73-1.22 [facility] Comment on above: Performed By: #### C BC1 #### [facility] [address] [place], [place] [address] Glucose [Mass/Vol] 113 mg/dL High 74-99 [facility] Comment on above: Result Comment: The [place] Diabetes Association (ADA) provides guidance for cutoff [...] Standards of Medical Care in Diabetes 2016; [place] Diabetes Association. Diabetes Care. 2016;39(Suppl 1). Performed By: #### C BC1 #### [facility] [address] [place], [place] [address] Potassium [Moles/Vol] 4.1 mmol/L Normal 3.7-5.1 [facility] Comment on above: Performed By: #### C BC1 #### [facility] [address] [place], [place] [address] Sodium [Moles/Vol] 138 mmol/L Normal 136-144 [facility] Comment on above: Performed By: #### C BC1 #### [facility] [address] [place], [place] [address] Urea nitrogen [Mass/Vol] 22 mg/dL Normal 9-24 [facility] Comment on above: Performed By: #### C BC1 #### [facility] [address] [place], [place] [address] CASE MGT INIT ASSESon 2019 CASE MGT INIT ASSES HNO ID: [id number] Author: Tami Izquierdo) KAVIN Patricio Service: Care Management Author Type: Registered Nurse Type: Care Mgt Initial Assessment Filed: 12/10/2019 10:48 AM Note Text: CARE MANAGEMENT: ASSESSMENT AND DISCHARGE PLAN SERVICE DATE: December 10, 2019 SERVICE TIME: 10:47 AM PRIMARY CARE PHYSICIAN: Dexter Reyes MD ADMISSION STATUS: Inpatient Needs Prior to Discharge: Home Care [facility] 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 Last discharge within 30 days: No Advance Directive: Current Advance Directive: Health Care Power of Instructional Writer In Chart: No Feed Grinder Attempted to Assist with AD Completion: No [...] Mostly I feel financially burdened by my hix-kk-tlzbfm expenses for my prescription medication:: 0 - Disagree Somewhat Risk Score: 0 Patient is categorized as: Low risk < 2 Are you interested in bedside delivery of your medications? No Is Patient Psychosocially Complex?: No ASSESSMENT AND PLAN: Medical Needs: Medical Needs: Two or more chronic diseases Psychosocial Needs: Psychosocial Needs: None FREEDOM OF CHOICE EXPLAINED: [place] of Choice Given: Yes(Pt would like to resume hhc with [facility].) POTENTIAL TRANSITION PLANS Home Care Spoke with pt at the bedside. Pt states that he has been staying with his daughter. Active with [facility]. Plan for pt to return home with [facility]. Pt will need wound vac at d/c- script placed on chart to be signed. Family to transport home when medically stable. Will follow. SIGNATURE: Tami Patricio RN PATIENT NAME: Elizabeth Modi DATE: December 10, 2019 TIME: 10:47 AM PAGER/CONTACT #: [phone] Normal [facility] Hemogramon 12-10-2019 Erythrocyte distribution width (RBC) [Ratio] 14.1 % Normal 11.6-14.4 [facility] Comment on above: Performed By: #### P 8 #### [facility] [address] [place] [address] Hematocrit (Bld) [Volume fraction] 38.9 % Low 40.1-51.0 [facility] Comment on above: Performed By: #### P 8 #### [facility] [address] [place], [place] [address] Hemoglobin (Bld) [Mass/Vol] 12.3 g/dL Low 13.7-17.5 [facility] Comment on above: Performed By: #### P 8 #### [facility] [address] [address] MCH (RBC) [Entitic mass] 27.8 pg Normal 25.7-32.2 [facility] Comment on above: Performed By: #### P 8 #### [facility] [address] [address] MCHC (RBC) [Mass/Vol] 31.6 % Low 32.3-36.5 [facility] Comment on above: Performed By: #### P 8 #### [facility] [address] [address] MCV (RBC) [Entitic vol] 88.0 fL Normal 83.2-95.6 [facility] Comment on above: Performed By: #### P 8 #### [facility] [address] [address] Platelet mean volume (Bld) [Entitic vol] 10.5 fL Normal 8.7-12.0 [facility] Comment on above: Performed By: #### P 8 #### [facility] [address] [place] [id number] Platelets (Bld) [#/Vol] 285 thou/cmm Normal 141-365 [facility] Comment on above: Performed By: #### P 8 #### [facility] [address] [place] [id number] RBC (Bld) [#/Vol] 4.42 mil/cmm Low 4.63-6.08 [facility] Comment on above: Performed By: #### P 8 #### [facility] [address] [place], [place] [address] RDW SD 45.4 fl Normal 36.1-45.8 [facility] Comment on above: Performed By: #### P 8 #### [facility] [address] [place], [place] [address] WBC (Bld) [#/Vol] 9.86 thou/cmm High 4.23-9.07 [facility] Comment on above: Performed By: #### P 8 #### [facility] [address] [place], [place] [address] MDRD GFRon 12-10-2019 GFR/1.73 sq M predicted among non-blacks MDRD (S/P/Bld) [Vol rate/Area] mL/min/{1.73_m2} Normal >60mL/min/1 .73m2 [facility] Comment on above: Result Comment: If t he patient is , multiply the result by 1.210. Performed By: #### M AG #### [address] [address] PLAN OF CAREon 12-10-2019 PLAN OF CARE HNO ID: [id number] Author: Isac Navarro (Pharmacist) Service: Pharmacy Author [...] medication history: Yes Reconciliation completed? Yes All BARN BOSS medications addressed by LIP Additional comments: ? [...] has only been using this once daily BARN BOSS Paged Gen Surgery ([phone]) about these findings Jhfrv-mt-Rrhrpkpmf Medication List Adjustments: Medication Regimen Changes: Gabapentin [...] Known Allergies Preferred Pharmacy: [facility] Current BARN BOSS Medications: Prior to Admission medications as of [...] 10, 2019 2:15 PM Normal [facility] PROGRESSon 12-10-2019 PROGRESS HNO ID: [id number] Author: Rohan Duran DO Service: Vascular Surgery [...] questions or concerns Mon-Fri 6a-5p please page [phone]. After 5pm and on Weekends and Holidays, please page [phone] if in ICU or [phone] if on RNF. Subjective SUBJECTIVE: NAEON. Tolerating [...] 12/09/196[address] - 12/10/1965812/10/19699 - 12/11/19 0659 Shift 5379-8268 8914-6263 0833-9311 24 Hour Total 8042-1225 7875-0235 2315-9677 24 Hour Total INTAKE IV 400 400 OR Crystalloid intake (mL) 300 300 Volume (mL) (lactated ringers infusion) 100 100 Shift Total 400 400 OUTPUT Urine 341 663 8894 Void (ml) 597 698 7616 Shift Total 228 985 1211 Weight (kg) 88.2 88.2 88.2 88.2 88.2 [...] questions or concerns Mon-Fri 6a-5p please page [phone]. After 5pm and on Weekends and Holidays, please page [phone] if in ICU or [phone] if on RNF. Normal [facility] ANES [place] 12-09-2019 ANES POST HNO ID: [id number] Author: Sal Ochoa Service: Anesthesiology Author Type: [...] ANES PREOPon 12-09-2019 ANES PREOP HNO ID: [id number] Author: Sal Ochoa Service: Anesthesiology Author Type: [...] File Prior to Encounter Medication Sig - rsffl-0y-uve-epa-fish oil-D3 667-250 mg-unit cap Take 1 tablet [...] December 09, 2019 TIME: 9:05 AM CSN: [id number] [facility] BRIEF OP NOTon 12-09-2019 BRIEF OP NOT HNO ID: [id number] Author: Sunny Brito Service: Vascular Surgery Author [...] BRIEF OPERATIVE / PROCEDURE NOTE LOG ID: [id number] SURGERY/PROCEDURE DATE: 12/09/2019 INCISION/PROCEDURE START TIME: 10:54 AM INCISION CLOSE/PROCEDURE END TIME: 11:10 AM SURGEON(S)/PROCEDURALI ST(S) AND IT PROGRAM MANAGER(S): Surgeon(s) and Role: * Ryan Allen - Primary * Sunny Brito - Resident - Assisting Manager Of Clinical: Mara Godinez SA SURGERY/PROCEDURE(S): irrigation and debridement [...] 11:45 AM PAGER/CONTACT #: Normal [facility] Cult and Smr CAROLINE and AERon 0 12-09-2019 Cult and Smr CAROLINE and AER Test performed at [facility] Moderate Mixed skin javier. No anaerobic organisms cultured Few Gram positive cocci Few Polymorphonuclear leukocytes Normal [facility] Comment on above: Performed By: #### P 8 #### [facility] [address] [place] [address] HISTORY PHYSICALon 0 HISTORY PHYSICAL HNO ID: [id number] Author: Sunny Brito Service: Vascular Surgery Author [...] , Rfl: , 12/08/2019 at Unknown time liawx-4l-awl-epa-fish oil-D3 667-250 mg-unit cap, Take 1 tablet [...] 09, 2019 TIME: 10:14 AM PAGER/CONTACT #: [phone] Normal [facility] NURSING PROGon 12-09-2019 NURSING PROG HNO ID: [id number] Author: Dakota (Rn) KAVIN Rodriguez Service: ? Author Type: Registered Nurse Type: Nursing Progress Note Filed: 12/09/2019 12:59 PM Note Text: FBG done by Belkis VALE [facility] PROGRESSon 12-07-2019 PROGRESS HNO ID: [id number] Author: Gordo Figueroa Service: ? Author Type: [...] Outpatient Medications Medication Sig Dispense Refill - tmluh-9n-yce-epa-fish oil-D3 667-250 mg-unit cap Take 1 tablet [...] up with us next Monday at the [place] facility. Gordo Figueroa MD [facility] 12-06-2019 [facility] Office Visit (NADJAMIL) ELIZABETH MODI ([id number]) 1940 M Date Time Provider Department 12/06/19 [...] Outpatient Medications Medication Sig Dispense Refill - clhhc-0q-ljz-epa-fish oil-D3 667-250 mg-unit cap Take 1 tablet [...] up with us next Monday at the [facility] facility. Gordo Figueroa MD Referring Provider: SELF [200] Allergies As of Date: 12/06/2019 (No Known Allergies) Date Reviewed: 12/06/2019 Reviewed by: Ryan Allen - Fully Assessed Reason for Visit: Peripheral Vascular Disease (PVD) [3545] Cmt: Elizabeth is post op 09/05/19 Revision Rt BKA Primary Visit Diagnosis:PVD (peripheral vascular disease) ([facility]) [I73.9] Other Visit Diagnosis:Below knee amputation ([facility]) [S88.119A] Prescriptions as of 12/06/2019 Sig: OMEGA-3S 667 AW-BSI-WLE-FISH * Take 1 tablet by mouth once [...] on 12/07/19 [facility] Beau 12-06-2019 [facility] Telephone ([employer]) ELIZABETH MODI ([id number]) 1940 M Date Time Provider Department 12/06/19 RYAN ALLEN During your visit today, we recorded the following information about you: Allergies As of Date: 12/06/2019 (No Known Allergies) Date Reviewed: 12/06/2019 Reviewed by: Gordo Figueroa - Fully Assessed Reason for Visit: Schedule Surgery [1330] Primary Visit Diagnosis:PVD (peripheral vascular disease) ([facility]) [I73.9] Order(s):SURGICAL REQUEST - ELECTIVE [9923530] Order #: [id number]: 1 HANDP FOR SURGERY [G9321QYM] Order #: [id number] PRE-PROCEDURE AND PRE-OPERATIVE COVID [SQPOCOVD] Order #: [id number] FUTURE CBC [SQCBC] Order #: [id number] FUTURE BASIC METABOLIC PNL [SQBMP] Order #: [id number] FUTURE PROTHROMBIN TIME/PT [SQPT] Order #: [id number] FUTURE Prescriptions as of 12/06/2019 Sig: OMEGA-3S 667 DE-VOZ-EKJ-FISH * Take 1 tablet by mouth once [...] (84.369 kg) Outpatient Medications as of 12/09/19: pobxl-8s-bhj-epa-fish oil-D3 667-250 mg-unit cap zinc sulfate (ORAZINC [...] the following basenames: K,HCT Progress Notes ([facility]): Gordo Figueroa MD 12/07/2019 10:39 [...] Outpatient Medications Medication Sig Dispense Refill - emclu-5q-eue-epa-fish oil-D3 667-250 mg-unit cap Take 1 tablet [...] up with us next Monday at the [place] facility. Gordo Figueroa MD [facility] CASE MANAGEMon 09-11-2019 CASE MANAGEM HNO ID: [id number] Author: Tiffanie SantiagoRn) KAVIN Travis Service: Care Management Author Type: Registered Nurse Type: Care Mgt Progress Note Filed: 09/11/2019 12:54 PM Note Text: CARE MANAGEMENT DISCHARGE NOTE SERVICE DATE: 09/11/2019 SERVICE TIME: 12:42 PM LOS: 21 days Admission Date: 08/21/2019 DISCHARGE ARRANGEMENT (list agency and phone number) Discharge Arrangement: correction facility Was an expedited discharge program used?: No [facility] ASSESSMENT: HANDOFF COMMUNICATION: Handoff to: Primary Care Physician TRANSPORTATION ARRANGEMENTS: Transportation Arrangements: Ambulance/[place] [employer] Agency and Phone #:: [facility] ( [facility] ) [phone] / [phone] Type of Service: BLS Non-emergency Is Patient Medicaid Pending?: No Discussion of financial coverage occurred with: Family Pediatric Assistant Location: [facility] Destination: [facility] Financial Care Management Responsibility: None ADDITIONAL CONTACT RESOURCES: none Auth is obtained and patient has been discharged to [facility]. [facility] is transporting patient via cot at 13:00. Patient notified of discharge. He initially resisted stating he wanted to go to [facility]. Explained that he asked Bean Sorter to have his dtr Angelic makethe decision and she chose [facility]. Patient reluctantly agreed to discharge. Encouraged patient to discuss with staff there if he is not happy with the rehab and still wishes to go to [place]. Patent's dtr Angelic notified. SIGNATURE: Tiffanie Travis RN PATIENT NAME: Elizabeth Modi DATE: September 11, 2019 TIME: 12:41 PM PAGER/CONTACT #: [phone] [facility] CASE MANAGEM HNO ID: [id number] Author: Tiffanie SantiagoRn) KAVIN Travis Service: Care Management Author Type: Registered Nurse Type: Care Mgt Progress Note Filed: 09/11/2019 9:48 AM Note Text: CARE MANAGEMENT PROGRESS NOTE SERVICE DATE: 09/11/2019 SERVICE TIME: 9:47 AM LOS: 21 days Auth received for [facility]. MD notified. SIGNATURE: Tiffanie Travis RN PATIENT NAME: Elizabeth Modi DATE: September 11, 2019 TIME: 9:47 AM PAGER/CONTACT #: [phone] [facility] CONSULT PROGon 09-11-2019 CONSULT PROG HNO ID: [id number] Author: Doris Eden Service: Endocrinology Author Type: Physician Type: Consult Progress Note Filed: 09/11/2019 7:56 AM Note Text: ENDOCRINOLOGY CONSULT PROGRESS NOTE SERVICE DATE: 09/11/2019 SERVICE TIME: 7:40 AM Subjective INTERVAL HPI: Pt followed for diabetes mellitus type 2 with complications. Tr from [facility]; adm for right foot infection and gangrene; [...] 7:56 AM PAGER: [phone] Normal [facility] Glucose Meteron 09-11-2019 Glucose [Mass/Vol] 173 mg/dL High 70-99 [facility] Comment on above: Result Comment: KAVIN N OTIFIED Performed By: #### G LMET #### [facility] [address] [place] [address] NUTRITIONon 09-11-2019 NUTRITION HNO ID: [id number] Author: Snow Serna Service: Nutrition Therapy Author Type: Registered Dietitian Type: Nutrition Filed: 09/11/2019 12:51 PM Note Text: NUTRITION THERAPY PROGRESS NOTE SERVICE DATE: 09/11/2019 SERVICE TIME: 12:36 PM Nutrition Assessment: Recommended Malnutrition Diagnosis: Moderate Protein-Calorie Malnutrition (09/06/19 1155 : Tanja Byrne RD) Estimated kilocalorie needs: 4892-0839 Calorie Calculation Method: 30-35 kcals/kg Estimated protein [...] September 11, 2019 TIME: 12:36 PM PAGER: [phone] [facility] PLAN OF CAREon 09-11-2019 PLAN OF CARE HNO ID: [id number] Author: Francine Pineda (Pharmacist) Service: Pharmacy Author [...] PHARMACIST September 11, 2019 11:45 AM Pager: [phone] 09/11/2019 11:45 AM Medication List START taking [...] [facility] PROGRESSon 09-11-2019 PROGRESS HNO ID: [id number] Author: Tom Prescott DO Service: General Surgery [...] questions or concerns Mon-Fri 6a-5p please page [phone]. After 5pm and on Weekends and Holidays, please page [phone] if in ICU or [phone] if on RNF. Subjective SUBJECTIVE: Patient seen and examined this morning. SARATH. States his pain is currently 8/10 in severity, took tylenol mostly for pain control. Dressing taken down this morning, incision examined. Still awaiting precert at [facility]. Continues to do knee exercises, in knee [...] 0659 09/11/19 0700 - 09/12/19 0659 Shift 1727-7748 1493-1497 0287-8086 24 Hour Total 7171-1782 4077-4941 7217-7657 24 Hour Total INTAKE PO 120 120 PO 120 120 Shift Total 120 120 OUTPUT Urine 585 659 8001 2120 Void (ml) 317 593 7789 2120 Urine Not Saved. 1 x 1 x # of BMs Number of BMs 1 x 1 x 2 x Shift Total 200 112 9423 2120 Weight (kg) 87.7 87.7 87.6 87.6 [...] C/D/I with luly- healing well, minimal edema-stump agricultural chemicals inspector in place. SKIN: Skin color, texture, turgor [...] lower extremity angiogram with partial occlusion R [employer], reconstitution at R below knee pop, 2-vessel runoff. Antibiotics stopped 08/23, remains non-septic. 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 09/02 PVR R calf 0.51, R low thigh 0.74. 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 Allen SIGNATURE: Tom Prescott DO PATIENT NAME: Elizabeth Modi DATE: September 11, 2019 TIME: 6:48 AM Vascular AND Thoracic Surgery Service Pager: For questions or concerns Mon-Mon 6a-5p please page [phone]. After 5pm and on Weekends and Holidays, please page [phone] if in ICU or [phone] if on RNF. Normal [facility] THERAPY NTon 09-11-2019 THERAPY NT HNO ID: [id number] Author: Ramón (Kenya) Poppy Service: Physical Therapy Author Type: Therapeutic Sales Specialist Type: Therapy (PT/OT/Speech/Resp) Filed: 09/11/2019 12:04 PM Note Text: Attestation signed by Tori Graham at 09/12/2019 3:52 PM I reviewed and agree with the documentation corresponding to this therapy visit. SIGNATURE: Tori Graham PT DATE: September 12, 2019 TIME: 3:52 PM Physical Therapy Treatment SERVICE DATE: 09/11/2019 SERVICE TIME: 1036 to 1111 ROOM: [place] [address] Recommended Discharge Disposition: Acute Rehab Recommended Discharge [...] l;Muscle Weakness (generalized) Interventions Provided: Therapeutic Exercise (36191);Therapeutic Activity (48206) Therapeutic Exercise (71883) Treatment Minutes: 18 1 unit Skilled Intervention(s): [...] and quad sets x10 hour. Therapeutic Activity (94025) Treatment Minutes: 17 1 unit Skilled Intervention(s): [...] Environment Patient Lives With: Self/Alone Assistance Available: second time worker Entry To Home: Stairs;With Rail Number Of [...] 2019 TIME: 11:55 AM Normal [facility] CONSULT PROGon 09-10-2019 CONSULT PROG HNO ID: [id number] Author: Doris Eden Service: Endocrinology Author Type: Physician Type: Consult Progress Note Filed: 09/10/2019 7:55 AM Note Text: ENDOCRINOLOGY CONSULT PROGRESS NOTE SERVICE DATE: 09/10/2019 SERVICE TIME: 7:35 AM Subjective INTERVAL HPI: Pt followed for diabetes mellitus type 2 with complications. Tr from [facility]; adm for right foot infection and gangrene; [...] RRR Abdomen soft, no masses Extremities: has dressing/agricultural chemicals inspector on R leg stump; dressing on left [...] September 10, 2019 TIME: 7:55 AM PAGER: [phone] Normal [facility] PROGRESSon 09-10-2019 PROGRESS HNO ID: [id number] Author: Jennifer Crooks Service: Vascular Surgery Author [...] 0659 09/10/19 0700 - 09/11/19 0659 Shift 1323-2705 4247-7722 3921-8848 24 Hour Total 0525-9045 2089-8826 2981-4861 24 Hour Total INTAKE Shift Total OUTPUT Urine 044 452 5061 Void (ml) 799 059 2660 # of BMs Number of BMs 1 x 1 x 2 x Shift Total 916 838 1397 Weight (kg) 87.7 87.7 87.7 87.7 87.7 [...] lower extremity angiogram with partial occlusion R [employer], reconstitution at R below knee pop, 2-vessel runoff. Antibiotics stopped 08/23, remains non-septic. 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 09/02 PVR R calf 0.51, R low thigh 0.74. 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 ? Plan: -?DIET HEART HEALTHY? 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 Dressing changed re-applied stump agricultural chemicals inspector today. Knee immobilize q4hr - Pain control - PT/OT?recs:?acute rehab - [facility] ppx - Mobilization as able, out of bed to chair?as tolerated - PAD - continue statin?and aspirin - Dispo planning[facility] Service Pager: For questions or concerns Mon-Mon 6a-5p please page [phone]. After 5pm and on Weekends and Holidays, please page [phone] if in ICU or [phone] if on RNF. SIGNATURE: Jennifer Crooks MD PATIENT NAME: Elizabeth Modi DATE: September 10, 2019 TIME: 6:28 AM Pager: Normal [facility] THERAPY NTon 09-10-2019 THERAPY NT HNO ID: [id number] Author: Ramón Obrien) Poppy Service: Physical Therapy Author Type: Therapeutic Sales Specialist Type: Therapy (PT/OT/Speech/Resp) Filed: 09/10/2019 12:18 PM Note Text: Attestation signed by Tori Rapp) Santos at 09/11/2019 11:35 AM I reviewed and agree with the documentation corresponding to this therapy visit. SIGNATURE: Tori Graham, PT DATE: September 11, 2019 TIME: 11:35 AM Physical Therapy Treatment SERVICE DATE: 09/10/2019 SERVICE TIME: 1043 to 1108 ROOM: [id number] Recommended Discharge Disposition: Acute Rehab Recommended Discharge [...] l;Muscle Weakness (generalized) Interventions Provided: Therapeutic Activity (26526) Therapeutic Activity (26317) Treatment Minutes: 25 2 units Skilled Intervention(s): [...] Environment Patient Lives With: Self/Alone Assistance Available: second time worker Entry To Home: Stairs;With Rail Number Of [...] 2019 TIME: 12:09 PM Normal [facility] Basic Panelon 09-09-2019 Creatinine [Mass/Vol] 0.73 mg/dL Normal 0.67-1.17 [facility] Comment on above: Result Comment: Use of this assay is not recommended for patients undergoing treatment with phenindione, due to the potential for falsely depressed results. Performed By: #### C BC1 #### [place] [address] Anion gap [Moles/Vol] 13 mmol/L Normal 8-16 [facility] Comment on above: Performed By: #### C BC1 #### [facility] [address] [place], [place] [address] CO2 [Moles/Vol] 24 mmol/L Normal 21-32 [facility] Comment on above: Performed By: #### C BC1 #### [facility] [address] [place], [place] [address] Urea nitrogen [Mass/Vol] 23 mg/dL High 7-18 [facility] Comment on above: Performed By: #### C BC1 #### [facility] [address] [place], [place] [address] Calcium [Mass/Vol] 8.9 mg/dL Normal 8.5-10.1 [facility] Comment on above: Performed By: #### C BC1 #### [address] [address] Glucose [Mass/Vol] 79 mg/dL Normal 70-99 [facility] Comment on above: Performed By: #### C BC1 #### [facility] [address] [place], [place] [address] Chloride [Moles/Vol] 100 mmol/L Normal 98-107 [facility] Comment on above: Performed By: #### C BC1 #### [facility] [address] [place], [place] [address] Potassium [Moles/Vol] 4.0 mmol/L Normal 3.5-5.1 [facility] Comment on above: Performed By: #### C BC1 #### [facility] [address] [place], [place] [address] Sodium [Moles/Vol] 133 mmol/L Low 136-145 [facility] Comment on above: Performed By: #### C BC1 #### [facility] [address] [place], [place] [address] CASE MANAGEMon 09-09-2019 CASE MANAGEM HNO ID: [id number] Author: Christina Crandall Sec Service: Care Management [...] 09, 2019 TIME: 11:40 AM PAGER/CONTACT #: [phone] [facility] CASE MANAGEM HNO ID: [id number] Author: Tami (Rn) KAVIN Patricio Service: Care Management Author Type: Registered Nurse Type: Care Mgt Progress Note Filed: 09/09/2019 9:15 AM Note Text: CARE MANAGEMENT PROGRESS NOTE SERVICE DATE: 09/09/2019 SERVICE TIME: 9:14 AM LOS: 19 days Chart reviewed. Precert pending for [facility] rehab. Pt will need cot for transport at d/c. Will follow. SIGNATURE: Tami Patricio RN PATIENT NAME: Elizabeth Modi DATE: September 09, 2019 TIME: 9:14 AM PAGER/CONTACT #: [phone] [facility] CONSULT PROGon 09-09-2019 CONSULT PROG HNO ID: [id number] Author: Doris Eden Service: Endocrinology Author Type: Physician Type: Consult Progress Note Filed: 09/09/2019 8:25 AM Note Text: ENDOCRINOLOGY CONSULT PROGRESS NOTE SERVICE DATE: 09/09/2019 SERVICE TIME: 8:00 AM Subjective INTERVAL HPI: Pt followed for diabetes mellitus type 2 with complications. Tr from [facility]; adm for right foot infection and gangrene; [...] RRR Abdomen soft, no masses Extremities: has dressing/agricultural chemicals inspector on R leg stump; dressing on left [...] 8:25 AM PAGER: [phone] Normal [facility] Hemogramon 09-09-2019 Erythrocyte distribution width (RBC) [Ratio] 15.9 % High 11.6-14.4 [facility] Comment on above: Performed By: #### P 8 #### [address] [address] Hematocrit (Bld) [Volume fraction] 27.5 % Low 40.1-51.0 [facility] Comment on above: Performed By: #### P 8 #### [address] [address] Hemoglobin (Bld) [Mass/Vol] 8.8 g/dL Low 13.7-17.5 [facility] Comment on above: Performed By: #### P 8 #### [facility] [address] [place], [place] [address] MCH (RBC) [Entitic mass] 29.2 pg Normal 25.7-32.2 [facility] Comment on above: Performed By: #### P 8 #### [facility] [address] [place], [place] [address] MCHC (RBC) [Mass/Vol] 32.0 % Low 32.3-36.5 [facility] Comment on above: Performed By: #### P 8 #### [facility] [address] [place], [place] [address] MCV (RBC) [Entitic vol] 91.4 fL Normal 83.2-95.6 [facility] Comment on above: Performed By: #### P 8 #### [facility] [address] [place], [place] [address] Platelet mean volume (Bld) [Entitic vol] 9.6 fL Normal 8.7-12.0 [facility] Comment on above: Performed By: #### P 8 #### [facility] [address] [place], [place] [address] Platelets (Bld) [#/Vol] 505 thou/cmm High 141-365 [facility] Comment on above: Performed By: #### P 8 #### [facility] [address] [place], [place] [address] RBC (Bld) [#/Vol] 3.01 mil/cmm Low 4.63-6.08 [facility] Comment on above: Performed By: #### P 8 #### [facility] [address] [place] [address] RDW SD 51.8 fl High 36.1-45.8 [facility] Comment on above: Performed By: #### P 8 #### [facility] [address] [place], [place] [address] WBC (Bld) [#/Vol] 12.29 thou/cmm High 4.23-9.07 [facility] Comment on above: Performed By: #### P 8 #### [facility] [address] [place], [place] [address] MDRD GFRon 09-09-2019 GFR/1.73 sq M predicted among non-blacks MDRD (S/P/Bld) [Vol rate/Area] mL/min/{1.73_m2} Normal >60mL/min/1 .73m2 [facility] Comment on above: Result Comment: If t he patient is , multiply the result by 1.210. Performed By: #### C BC1 #### [facility] [address] [place], [place] [address] Magnesium Bloodon 09-09-2019 Magnesium [Mass/Vol] 1.3 mg/dL Low 1.6-2.6 [facility] Comment on above: Performed By: #### C _ANA #### [place] [id number] PLAN OF CAREon 09-09-2019 PLAN OF CARE HNO ID: [id number] Author: Francine Pineda (Pharmacist) Service: Pharmacy Author Type: Pharmacist Type: Plan of Care Filed: 09/09/2019 11:32 AM Note Text: MEDICATION HISTORY AND MEDICATION RECONCILIATION Patient Name:Nelson Modi : 1940 Source of history:Pharmacy records: [place] [id number] Medication Nonadherence Identified: No barriers noted- up to date on refills The above information represents the best possible medication history: Yes Reconciliation completed? Yes All BARN BOSS medications addressed by LIP Additional comments: Bujom-yb-Hlieuhxwp Medication List Adjustments: Medication Regimen Changes: None Medications Added: None Medications Removed: None Short-Term Medications: None Further Clarification Required: None Patient is a 30 day readmission: No Patient Interested in Bedside Delivery: No Time Spent Reviewing Patient's Medications: 40 minutes Allergies: ALLERGIES No Known Allergies Preferred Pharmacy: [facility] [address] [id number] [place] [id number] Current BARN BOSS Medications: Prior to Admission medications as of [...] 09, 2019 11:24 AM Normal [facility] PROGRESSon 09-09-2019 PROGRESS HNO ID: [id number] Author: Tom Prescott DO Service: General Surgery [...] of pain while wearing knee immobilizer. Stump agricultural chemicals inspector supplied by [facility] [employer]. Denies f/C. Moving the stump without to [...] 0659 09/09/19 07 - 09/10/19 0659 Shift 4048-5350 0697-5339 3123-8360 24 Hour Total 8676-7277 9237-7755 6100-7650 24 Hour Total INTAKE Shift Total OUTPUT [...] with luly in place, BKA with stump agricultural chemicals inspector in place SKIN: Skin color, texture, turgor [...] lower extremity angiogram with partial occlusion R [employer], reconstitution at R below knee pop, 2-vessel runoff. Antibiotics stopped 08/23, remains non-septic. 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 09/02 PVR R calf 0.51, R low thigh 0.74. 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 ? Plan: -?DIET HEART HEALTHY? 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 Dressing changed re-applied stump agricultural chemicals inspector today. Knee immobilize q4hr - Pain control - PT/OT?recs:?acute rehab - [facility] ppx - Mobilization as able, out of bed to chair?as tolerated - PAD - continue statin?and aspirin - Dispo planning: awaiting precert to [facility] Discuss plan with Dr. Devin Prescott DO, MBA PGY-1 General Surgery Resident 09/09/2019 9:02 AM Pager below: Vascular AND Thoracic Surgery Service Pager: For questions or concerns Mon-Fri 6a-5p please page [phone]. After 5pm and on Weekends and Holidays, please page [phone] if in ICU or [phone] if on RNF. Normal [facility] Phosphorus Bloodon 0 Phosphate [Mass/Vol] 3.1 mg/dL Normal 2.5-4.9 [facility] Comment on above: Performed By: #### C BC1 #### [place] [id number] THERAPY NTon 09-09-2019 THERAPY NT HNO ID: [id number] Author: Ramón ([place]) Poppy Service: Physical Therapy Author Type: Therapeutic Sales Specialist Type: Therapy (PT/OT/Speech/Resp) Filed: 09/09/2019 11:36 AM Note Text: Attestation signed by Tori (Pt) Santos at 09/09/2019 4:16 PM I reviewed and agree with the documentation corresponding to this therapy visit. SIGNATURE: Tori Graham, PT DATE: September 09, 2019 TIME: 4:16 PM Physical Therapy Treatment SERVICE DATE: 09/09/2019 SERVICE TIME: 1053 to 1119 ROOM: [id number] Recommended Discharge Disposition: Acute Rehab Recommended Discharge [...] l;Muscle Weakness (generalized) Interventions Provided: Therapeutic Exercise (43000);Therapeutic Activity (95718) Therapeutic Exercise (37142) Treatment Minutes: 14 1 unit Skilled Intervention(s): [...] change of knee flexion contracture. Therapeutic Activity (20789) Treatment Minutes: 12 1 unit Skilled Intervention(s): [...] Environment Patient Lives With: Self/Alone Assistance Available: second time worker Entry To Home: Stairs;With Rail Number Of [...] 2019 TIME: 11:28 AM Normal [facility] Basic Panelon 09-08-2019 Creatinine [Mass/Vol] 0.71 mg/dL Normal 0.67-1.17 [facility] Comment on above: Result Comment: Use of this assay is not recommended for patients undergoing treatment with phenindione, due to the potential for falsely depressed results. Performed By: #### P 8 #### [place] [address] Anion gap [Moles/Vol] 11 mmol/L Normal 8-16 [facility] Comment on above: Performed By: #### P 8 #### [facility] [address] [place], [place] [address] Calcium [Mass/Vol] 8.7 mg/dL Normal 8.5-10.1 [facility] Comment on above: Performed By: #### P 8 #### [facility] [address] [place], [place] [address] CO2 [Moles/Vol] 24 mmol/L Normal 21-32 [facility] Comment on above: Performed By: #### P 8 #### [facility] [address] [place], [place] [address] Glucose [Mass/Vol] 132 mg/dL High 70-99 [facility] Comment on above: Performed By: #### P 8 #### [facility] [address] [place], [place] [address] Urea nitrogen [Mass/Vol] 17 mg/dL Normal 7-18 [facility] Comment on above: Performed By: #### P 8 #### [facility] [address] [place], [place] [address] Chloride [Moles/Vol] 102 mmol/L Normal 98-107 [facility] Comment on above: Performed By: #### P 8 #### [facility] [address] [place], [place] [address] Potassium [Moles/Vol] 3.9 mmol/L Normal 3.5-5.1 [facility] Comment on above: Performed By: #### P 8 #### [facility] [address] [place], [place] [address] Sodium [Moles/Vol] 133 mmol/L Low 136-145 [facility] Comment on above: Performed By: #### P 8 #### [facility] [address] [place], [place] [address] CONSULT PROGon 09-08-2019 CONSULT PROG HNO ID: [id number] Author: Hermila Gallegos Service: Endocrinology Author Type: Physician Type: Consult Progress Note Filed: 09/08/2019 1:57 PM Note Text: ENDOCRINOLOGY CONSULT PROGRESS NOTE SERVICE DATE: 09/08/2019 SERVICE TIME: 10:20 AM Subjective INTERVAL HPI: Pt followed for diabetes mellitus type 2 with complications. Tr from [facility]; adm for right foot infection and gangrene; [...] 2019 TIME: 1:57 PM PAGER: [phone] Normal [facility] Hemogramon 09-08-2019 Erythrocyte distribution width (RBC) [Ratio] 15.8 % High 11.6-14.4 [facility] Comment on above: Performed By: #### P 8 #### [address] [place] [address] Hematocrit (Bld) [Volume fraction] 27.0 % Low 40.1-51.0 [facility] Comment on above: Performed By: #### P 8 #### [facility] [address] [place], [place] [address] Hemoglobin (Bld) [Mass/Vol] 8.2 g/dL Low 13.7-17.5 [facility] Comment on above: Performed By: #### P 8 #### [facility] [address] [place] [address] MCH (RBC) [Entitic mass] 27.8 pg Normal 25.7-32.2 [facility] Comment on above: Performed By: #### P 8 #### [facility] [address] [place] [address] MCHC (RBC) [Mass/Vol] 30.4 % Low 32.3-36.5 [facility] Comment on above: Performed By: #### P 8 #### [facility] [address] [place] [address] MCV (RBC) [Entitic vol] 91.5 fL Normal 83.2-95.6 [facility] Comment on above: Performed By: #### P 8 #### [facility] [address] [place] [address] Platelet mean volume (Bld) [Entitic vol] 10.2 fL Normal 8.7-12.0 [facility] Comment on above: Performed By: #### P 8 #### [facility] [address] [place], [place] [address] Platelets (Bld) [#/Vol] 444 thou/cmm High 141-365 [facility] Comment on above: Performed By: #### P 8 #### [facility] [address] [place], [place] [address] RBC (Bld) [#/Vol] 2.95 mil/cmm Low 4.63-6.08 [facility] Comment on above: Performed By: #### P 8 #### [facility] [address] [place] [address] RDW SD 51.5 fl High 36.1-45.8 [facility] Comment on above: Performed By: #### P 8 #### [facility] [address] [place], [place] [address] WBC (Bld) [#/Vol] 12.29 thou/cmm High 4.23-9.07 [facility] Comment on above: Performed By: #### P 8 #### [facility] [address] [place], [place] [address] Magnesium Bloodon 09-08-2019 Magnesium [Mass/Vol] 1.2 mg/dL Low 1.6-2.6 [facility] Comment on above: Performed By: #### C BC1 #### [facility] [address] [place], [place] [address] PROGRESSon 09-08-2019 PROGRESS HNO ID: [id number] Author: Jennifer Crooks Service: Vascular Surgery Author [...] pain moderately well controlled this am. Stump agricultural chemicals inspector applied by [facility] yesterday. Knee immobilizer in place. Tolerating diet [...] 0659 09/08/19 07 - 09/09/19 0659 Shift 1188-8836 5750-7745 9395-9680 24 Hour Total 7555-7492 1824-7460 1302-8050 24 Hour Total INTAKE Shift Total OUTPUT Urine 032 754 4558 Void (ml) 460 260 6165 # of BMs Stool Incontinence 1 x 1 x Number of BMs 1 x 1 x Shift Total 520 560 5816 Weight (kg) 90 90 90.4 90.4 90.4 [...] lower extremity angiogram with partial occlusion R [employer], reconstitution at R below knee pop, 2-vessel [...] edema, no bleeding. Will change dressing/re-apply stump agricultural chemicals inspector today. - Pain control - PT/OT?recs:?acute rehab - [facility] ppx - Mobilization as able, out of bed to chair?as tolerated - PAD - continue statin?and aspirin - Dispo planning: awaiting precert to [facility] Addendum: (10:34 AM) Patient seen bedside with attending. Knee immobilizer/and dressing/stump agricultural chemicals inspector taken down. Surgical incision appears healthy with minimal drainage. No erythema or bleeding. [place] intact. Dressing/stump agricultural chemicals inspector reapplied. Will continue knee immobilizer q4H and while OOB. ? Vascular AND Thoracic Surgery Service Pager: For questions or concerns Mon-Mon 6a-5p please page [phone]. After 5pm and on Weekends and Holidays, please page [phone] if in ICU or [phone] if on RNF. SIGNATURE: Jennifer Crooks MD PATIENT NAME: Elizabeth Modi DATE: September 08, 2019 TIME: 6:45 AM Pager: Normal [facility] Phosphorus Bloodon 0 Phosphate [Mass/Vol] 3.0 mg/dL Normal 2.5-4.9 [facility] Comment on above: Performed By: #### C BC1 #### [facility] [address] [place], [place] [address] Basic Panelon 09-07-2019 Creatinine [Mass/Vol] 0.84 mg/dL Normal 0.67-1.17 [facility] Comment on above: Result Comment: Use of this assay is not recommended for patients undergoing treatment with phenindione, due to the potential for falsely depressed results. Performed By: #### F ERR #### [facility] [address] [place] [address] Anion gap [Moles/Vol] 11 mmol/L Normal 8-16 [facility] Comment on above: Performed By: #### F ERR #### [address] [address] CO2 [Moles/Vol] 25 mmol/L Normal 21-32 [facility] Comment on above: Performed By: #### F ERR #### [address] [address] Glucose [Mass/Vol] 147 mg/dL High 70-99 [facility] Comment on above: Performed By: #### F ERR #### [facility] [address] [place], [place] [address] Urea nitrogen [Mass/Vol] 14 mg/dL Normal 7-18 [facility] Comment on above: Performed By: #### F ERR #### [facility] [address] [place], [place] [address] Calcium [Mass/Vol] 9.5 mg/dL Normal 8.5-10.1 [facility] Comment on above: Performed By: #### F ERR #### [facility] [address] [place], [place] [address] Chloride [Moles/Vol] 101 mmol/L Normal 98-107 [facility] Comment on above: Performed By: #### F ERR #### [address] [address] Potassium [Moles/Vol] 4.2 mmol/L Normal 3.5-5.1 [facility] Comment on above: Performed By: #### F ERR #### [facility] [address] [place], [place] [address] Sodium [Moles/Vol] 133 mmol/L Low 136-145 [facility] Comment on above: Performed By: #### F ERR #### [facility] [address] [place], [place] [address] CONSULT PROGon 09-07-2019 CONSULT PROG HNO ID: [id number] Author: Hermila Gallegos Service: Endocrinology Author Type: Physician Type: Consult Progress Note Filed: 09/07/2019 11:25 AM Note Text: ENDOCRINOLOGY CONSULT PROGRESS NOTE SERVICE DATE: 09/07/2019 SERVICE TIME: 11:22 AM Subjective INTERVAL HPI: Pt followed for diabetes mellitus type 2 with complications. Tr from [facility]; adm for right foot infection and gangrene; [...] 11:24 AM PAGER: [phone] Normal [facility] Hemogramon 09-07-2019 Erythrocyte distribution width (RBC) [Ratio] 16.1 % High 11.6-14.4 [facility] Comment on above: Performed By: #### M AG #### [facility] [address] [place] [address] Hematocrit (Bld) [Volume fraction] 31.4 % Low 40.1-51.0 [facility] Comment on above: Performed By: #### M AG #### [facility] [address] [place] [address] Hemoglobin (Bld) [Mass/Vol] 9.8 g/dL Low 13.7-17.5 [facility] Comment on above: Performed By: #### M AG #### [address] [address] MCH (RBC) [Entitic mass] 28.7 pg Normal 25.7-32.2 [facility] Comment on above: Performed By: #### M AG #### [facility] [address] [place], [place] [address] MCHC (RBC) [Mass/Vol] 31.2 % Low 32.3-36.5 [facility] Comment on above: Performed By: #### M AG #### [place] [address] MCV (RBC) [Entitic vol] 92.1 fL Normal 83.2-95.6 [facility] Comment on above: Performed By: #### M AG #### [facility] [address] [place], [place] [address] Platelet mean volume (Bld) [Entitic vol] 9.6 fL Normal 8.7-12.0 [facility] Comment on above: Performed By: #### M AG #### [facility] [address] [place], [place] [address] Platelets (Bld) [#/Vol] 519 thou/cmm High 141-365 [facility] Comment on above: Performed By: #### M AG #### [facility] [address] [place] [id number] RBC (Bld) [#/Vol] 3.41 mil/cmm Low 4.63-6.08 [facility] Comment on above: Performed By: #### M AG #### [facility] [address] [place] [address] RDW SD 53.3 fl High 36.1-45.8 [facility] Comment on above: Performed By: #### M AG #### [facility] [address] [place] [address] WBC (Bld) [#/Vol] 12.27 thou/cmm High 4.23-9.07 [facility] Comment on above: Performed By: #### M AG #### [facility] [address] [place] [address] Magnesium Bloodon 09-07-2019 Magnesium [Mass/Vol] 1.3 mg/dL Low 1.6-2.6 [facility] Comment on above: Performed By: #### F ERR #### [facility] [address] [place] [address] OPERATIVE NOon 09-07-2019 OPERATIVE NO HNO ID: [id number] Author: Ryan Allen Service: ? Author Type: Physician Type: Operative Report Filed: 09/09/2019 8:10 AM Note Text: [facility] - Operative Report ELIZABETH MODI : 1940 AGE: 79. SEX: M PATIENT TYPE: I HOSP SVC: KEENAN LOCATION: [facility] ATTENDING PHYSICIAN: JOVANNY PARMAR CSN NUMBER: [id number] DATE OF SURGERY/PROCEDURE: 09/05/2019 INCISION/PROCEDURE START TIME: 12:28 PM INCISION CLOSE/PROCEDURE END TIME: 2:14 PM PREOPERATIVE DIAGNOSIS: Gangrenous right lower extremity, status post guillotine amputation below the knee. POSTOPERATIVE DIAGNOSIS: Gangrenous right lower extremity, status post guillotine amputation below the knee. SURGEON: Ryan Allen MD, FACS IT PROGRAM MANAGER: Tom Prescott DO, resident, also assistant professor of spanish is Irvin Walkre. SURGERY/PROCEDURE: Revision of a right below-knee amputation. [...] tuberosity location and also used the oscillating Delta saw to divide the fibula slightly proximal [...] satisfactory postop condition. Ryan Allen MD, FACS RGN:[id number] Normal [facility] PROGRESSon 09-07-2019 PROGRESS HNO ID: [id number] Author: Jennifer Crooks Service: Vascular Surgery Author [...] 0659 09/07/19 07 - 09/08/19 0659 Shift 2628-2887 2901-2610 4490-8201 24 Hour Total 1260-8357 9082-7207 9536-3811 24 Hour Total INTAKE Shift Total OUTPUT Urine 550 446 732 1166 Void (ml) 550 977 460 0839 Shift Total 550 846 928 4651 Weight (kg) 89.3 89.3 90 90 90 [...] lower extremity angiogram with partial occlusion R [employer], reconstitution at R below knee pop, 2-vessel [...] edema, no bleeding Nori consult for stump agricultural chemicals inspector 09/06 - Pain control - PT/OT recs: acute rehab - [facility] ppx - Mobilization as able, out of bed to chair?as tolerated - PAD - continue statin?and aspirin - [facility] Thoracic [facility] Service Pager: For questions or concerns Mon-Mon 6a-5p please page [phone]. After 5pm and on Weekends and Holidays, please page [phone] if in ICU or [phone] if on RNF. SIGNATURE: Jennifer Crooks MD PATIENT NAME: Elizabeth Modi DATE: September 07, 2019 TIME: 6:39 AM Pager: Normal [facility] Phosphorus Bloodon 03-21-202 0 Phosphate [Mass/Vol] 3.0 mg/dL Normal 2.5-4.9 [facility] Comment on above: Performed By: #### C BC1 #### [facility] [address] [place], [place] [address] Basic Panelon 09-06-2019 Creatinine [Mass/Vol] 0.70 mg/dL Normal 0.67-1.17 [facility] Comment on above: Result Comment: Use of this assay is not recommended for patients undergoing treatment with phenindione, due to the potential for falsely depressed results. Performed By: #### C _ANA #### [facility] [address] [place] [address] Anion gap [Moles/Vol] 10 mmol/L Normal 8-16 [facility] Comment on above: Performed By: #### C _ANA #### [facility] [address] [place] [address] CO2 [Moles/Vol] 24 mmol/L Normal 21-32 [facility] Comment on above: Performed By: #### C _ANA #### [facility] [address] [place], [place] [address] Urea nitrogen [Mass/Vol] 14 mg/dL Normal 7-18 [facility] Comment on above: Performed By: #### C _ANA #### [facility] [address] [place], [place] [address] Calcium [Mass/Vol] 8.1 mg/dL Low 8.5-10.1 [facility] Comment on above: Performed By: #### C _ANA #### [facility] [address] [place], [place] [address] Glucose [Mass/Vol] 157 mg/dL High 70-99 [facility] Comment on above: Performed By: #### C _ANA #### [facility] [address] [place], [place] [address] Chloride [Moles/Vol] 106 mmol/L Normal 98-107 [facility] Comment on above: Performed By: #### C _ANA #### [facility] [address] [place], [place] [address] Potassium [Moles/Vol] 4.4 mmol/L Normal 3.5-5.1 [facility] Comment on above: Performed By: #### C _ANA #### [facility] [address] [place], [place] [address] Sodium [Moles/Vol] 136 mmol/L Normal 136-145 [facility] Comment on above: Performed By: #### C _ANA #### [facility] [address] [place], [place] [address] CASE MGT INIT ASSESon 2019 CASE MGT INIT ASS HNO ID: [id number] Author: Tami (Rn) KAVIN Patricio Service: Care Management Author Type: Registered Nurse Type: Care Mgt Initial Assessment Filed: 09/06/2019 2:24 PM Note Text: CARE MANAGEMENT PROGRESS NOTE SERVICE DATE: 09/06/2019 SERVICE TIME: 2:23 PM LOS: 16 days Chart reviewed. Plan for [facility] - precert pending. Pt will need cot for transport. Will follow. SIGNATURE: Tami Patricio RN PATIENT NAME: Elizabeth Modi DATE: September 06, 2019 TIME: 2:22 PM PAGER/CONTACT #: [phone] [facility] CONSULT PROGon 09-06-2019 CONSULT PROG HNO ID: [id number] Author: Luke Briones (Gurwinder) Sailaja Service: Wound/Ostomy Author Type: Nurse Practitioner Type: Consult Progress Note Filed: 09/06/2019 9:52 AM Note Text: WOUND CARE PROGRESS LASER SPECIALIST NOTE SERVICE DATE: 09/06/2019 SERVICE TIME: [...] who is seen today with Zee Alba, Wound/plant control aide, and presented to hospital with complaints of [...] left heel and seat cushion. Will reorder [id number] mattress as patient is still on regular mattress and turn and reposition every 2 hours or more often. A photo was taken of the patient's wound(s). Photos can be found under the Get Images tab on [employer]. Photos are uploaded by the wound healthcare associate and may not be immediately available for viewing. Contact the wound and ostomy care department with questions. SIGNATURE: Luke Menard APRN.INTERVENTIONAL RADIOLOGY RN,CWOCN PATIENT NAME: Elizabeth Modi DATE: September 06, 2019 TIME: 9:45 AM CONTACT#: [id number] [facility] CONSULT PROG HNO ID: [id number] Author: Doris Eden Service: Endocrinology Author Type: Physician Type: Consult Progress Note Filed: 09/06/2019 7:59 AM Note Text: ENDOCRINOLOGY CONSULT PROGRESS NOTE SERVICE DATE: 09/06/2019 SERVICE TIME: 7:45 AM Subjective INTERVAL HPI: Pt followed for diabetes mellitus type 2 with complications. Tr from [facility]; adm for right foot infection and gangrene; [...] 7:59 AM PAGER: [phone] Normal [facility] Hemogramon 09-06-2019 Erythrocyte distribution width (RBC) [Ratio] 16.2 % High 11.6-14.4 [facility] Comment on above: Performed By: #### F ERR #### [facility] [address] [place] [address] Hematocrit (Bld) [Volume fraction] 26.4 % Low 40.1-51.0 [facility] Comment on above: Performed By: #### F ERR #### [place] [address] Hemoglobin (Bld) [Mass/Vol] 8.2 g/dL Low 13.7-17.5 [facility] Comment on above: Performed By: #### F ERR #### [place] [address] MCH (RBC) [Entitic mass] 28.5 pg Normal 25.7-32.2 [facility] Comment on above: Performed By: #### F ERR #### [place] [address] MCHC (RBC) [Mass/Vol] 31.1 % Low 32.3-36.5 [facility] Comment on above: Performed By: #### F ERR #### [place] [address] MCV (RBC) [Entitic vol] 91.7 fL Normal 83.2-95.6 [facility] Comment on above: Performed By: #### F ERR #### [facility] [address] [place] [address] Platelet mean volume (Bld) [Entitic vol] 9.7 fL Normal 8.7-12.0 [facility] Comment on above: Performed By: #### F ERR #### [place] [id number] Platelets (Bld) [#/Vol] 410 thou/cmm High 141-365 [facility] Comment on above: Performed By: #### F ERR #### [facility] [address] [place] [address] RBC (Bld) [#/Vol] 2.88 mil/cmm Low 4.63-6.08 [facility] Comment on above: Performed By: #### F ERR #### [facility] [address] [place] [address] RDW SD 53.9 fl High 36.1-45.8 [facility] Comment on above: Performed By: #### F ERR #### [facility] [address] [place] [address] WBC (Bld) [#/Vol] 10.15 thou/cmm High 4.23-9.07 [facility] Comment on above: Performed By: #### F ERR #### [facility] [address] [place] [address] Magnesium Bloodon 09-06-2019 Magnesium [Mass/Vol] 1.5 mg/dL Low 1.6-2.6 [facility] Comment on above: Performed By: #### C _ANA #### [place] [address] NUTRITIONon 09-06-2019 NUTRITION HNO ID: [id number] Author: Tanja Zimmerman) ALEIDA Byrne Service: Nutrition [...] condition;Depletion of fat/muscle stores Estimated kilocalorie needs: 9894-0230 Calorie Calculation Method: 30-35 kcals/kg Estimated protein [...] of Inflammation: Leukocytosis;Acute post-operative;Hypergl ycemia SIGNATURE: Tanja yBrne RD PATIENT NAME: Elizabeth Modi DATE: September 06, 2019 TIME: 9:53 AM PAGER: [phone] Normal [facility] PROGRESSon 09-06-2019 PROGRESS HNO ID: [id number] Author: Tom Prescott DO Service: General Surgery [...] stump. Prosthetics company to visit for stump agricultural chemicals inspector hopefully tomorrow as well Signature: Ryan Allen [...] 0659 09/06/19 07 - 09/07/19 0659 Shift 9586-8277 0875-9197 3073-4816 24 Hour Total 6335-3045 5444-6264 3664-9372 24 Hour Total INTAKE PO 240 240 480 PO 240 240 480 IV 750 100 850 OR Crystalloid intake (mL) 750 750 Volume (mL) (lactated ringers infusion) 100 100 Shift Total 750 165 755 4975 OUTPUT Urine 150 1100 1300 2550 Void [...] lower extremity angiogram with partial occlusion R [employer], reconstitution at R below knee pop, 2-vessel runoff. Antibiotics stopped 08/23, remains non-septic. 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 09/02 PVR R calf 0.51, R low thigh 0.74. 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 Normal [facility] Phosphorus Bloodon 0 Phosphate [Mass/Vol] 2.9 mg/dL Normal 2.5-4.9 [facility] Comment on above: Performed By: #### M AG #### [facility] [address] [place] [address] THERAPY NTon 09-06-2019 THERAPY NT HNO ID: [id number] Author: Briana (Otr/Vickie Watson Service: Occupational Therapy Author Type: Occupational Therapist Type: Therapy (PT/OT/Speech/Resp) Filed: 09/06/2019 3:43 PM Note Text: Occupational Therapy Treatment SERVICE DATE: 09/06/2019 SERVICE TIME: 1519 to 1533 ROOM: [place] [address] Recommended Discharge Disposition: Acute Rehab Recommended Discharge [...] feet;General symptoms and signs-other Interventions Provided: Self Prison Management (57477) Self Prison Management (75463) Treatment Minutes: 14 1 unit Skilled Intervention(s): [...] On 09/05/19 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: second time worker Entry To Home: Stairs;With Rail Number Of [...] 2019 TIME: 3:38 PM Normal [facility] [facility] THERAPY NT HNO ID: [id number] Author: Marilyn (Pt) Mark Service: Physical Therapy Author Type: Physical Therapist Type: Therapy (PT/OT/Speech/Resp) Filed: 09/06/2019 12:03 PM Note Text: Physical Therapy Treatment SERVICE DATE: 09/06/2019 SERVICE TIME: 1109 to 1119 ROOM: [place] [address] Recommended Discharge Disposition: Acute Rehab Recommended Discharge [...] l;Muscle Weakness (generalized) Interventions Provided: Therapeutic Activity (64282) Therapeutic Activity (47426) Treatment Minutes: 10 1 unit Skilled Intervention(s): [...] Environment Patient Lives With: Self/Alone Assistance Available: second time worker Entry To Home: Stairs;With Rail Number Of [...] 2019 TIME: 11:55 AM Normal [facility] ABO/Rh Confirmationon 2019 ABO group Nom (Bld) A Normal [facility] Comment on above: Performed By: #### G LMET #### [place] [address] RH Type Positive Normal [facility] Comment on above: Performed By: #### G LMET #### [place] [address] ANES Clayton 09-05-2019 ANES POST HNO ID: [id number] Author: Sj Huizar Service: Anesthesiology Author Type: [...] ANES PREOPon 09-05-2019 ANES PREOP HNO ID: [id number] Author: Al Pugh Service: Anesthesiology Author Type: [...] September 05, 2019 TIME: 11:39 AM CSN: [id number] [facility] BRIEF OP NOTon 09-05-2019 BRIEF OP NOT HNO ID: [id number] Author: Tom Prescott DO Service: General Surgery [...] BRIEF OPERATIVE / PROCEDURE NOTE LOG ID: [id number] SURGERY/PROCEDURE DATE: 09/05/2019 INCISION/PROCEDURE START TIME: 12:28 PM INCISION CLOSE/PROCEDURE END TIME: 2:14 PM SURGEON(S)/PROCEDURALI ST(S) AND IT PROGRAM MANAGER(S): Surgeon(s) and Role: * Ryan Allen - Primary * Tom Prescott DO - Resident - Assisting Manager Of Clinical: Irvin Walker SA SURGERY/PROCEDURE(S): Revision of prior [...] 2174 if on RNF. Normal [facility] Basic Panelon 09-05-2019 Creatinine [Mass/Vol] 0.73 mg/dL Normal 0.67-1.17 [facility] Comment on above: Result Comment: Use of this assay is not recommended for patients undergoing treatment with phenindione, due to the potential for falsely depressed results. Performed By: #### F ERR #### [facility] [address] [place], [place] [address] Anion gap [Moles/Vol] 9 mmol/L Normal 8-16 [facility] Comment on above: Performed By: #### F ERR #### [facility] [address] [place], [place] [address] Calcium [Mass/Vol] 7.8 mg/dL Low 8.5-10.1 [facility] Comment on above: Performed By: #### F ERR #### [facility] [address] [place], [place] [address] CO2 [Moles/Vol] 26 mmol/L Normal 21-32 [facility] Comment on above: Performed By: #### F ERR #### [facility] [address] [place], [place] [address] Glucose [Mass/Vol] 137 mg/dL High 70-99 [facility] Comment on above: Performed By: #### F ERR #### [facility] [address] [place], [place] [address] Urea nitrogen [Mass/Vol] 17 mg/dL Normal 7-18 [facility] Comment on above: Performed By: #### F ERR #### [facility] [address] [place], [place] [address] Chloride [Moles/Vol] 105 mmol/L Normal 98-107 [facility] Comment on above: Performed By: #### F ERR #### [facility] [address] [place], [place] [address] Potassium [Moles/Vol] 4.1 mmol/L Normal 3.5-5.1 [facility] Comment on above: Performed By: #### F ERR #### [facility] [address] [place], [place] [address] Sodium [Moles/Vol] 136 mmol/L Normal 136-145 [facility] Comment on above: Performed By: #### F ERR #### [facility] [address] [place], [place] [address] CONSULT PROGon 09-05-2019 CONSULT PROG HNO ID: [id number] Author: Doris Eden Service: Endocrinology Author Type: Physician Type: Consult Progress Note Filed: 09/05/2019 8:01 AM Note Text: ENDOCRINOLOGY CONSULT PROGRESS NOTE SERVICE DATE: 09/05/2019 SERVICE TIME: 7:50 AM Subjective INTERVAL HPI: Pt followed for diabetes mellitus type 2 with complications. Tr from [facility]; adm for right foot infection and gangrene; [...] 8:01 AM PAGER: [phone] Normal [facility] Hemogramon 09-05-2019 Erythrocyte distribution width (RBC) [Ratio] 16.0 % High 11.6-14.4 [facility] Comment on above: Performed By: #### G LMET #### [place] [address] Hematocrit (Bld) [Volume fraction] 25.4 % Low 40.1-51.0 [facility] Comment on above: Performed By: #### G LMET #### [facility] [address] [place] [address] Hemoglobin (Bld) [Mass/Vol] 8.1 g/dL Low 13.7-17.5 [facility] Comment on above: Performed By: #### G LMET #### [facility] [address] [place] [address] MCH (RBC) [Entitic mass] 29.1 pg Normal 25.7-32.2 [facility] Comment on above: Performed By: #### G LMET #### [facility] [address] [place] [address] MCHC (RBC) [Mass/Vol] 31.9 % Low 32.3-36.5 [facility] Comment on above: Performed By: #### G LMET #### [facility] [address] [place] [address] MCV (RBC) [Entitic vol] 91.4 fL Normal 83.2-95.6 [facility] Comment on above: Performed By: #### G LMET #### [facility] [address] [place] [address] Platelet mean volume (Bld) [Entitic vol] 9.7 fL Normal 8.7-12.0 [facility] Comment on above: Performed By: #### G LMET #### [facility] [address] [place] [address] Platelets (Bld) [#/Vol] 387 thou/cmm High 141-365 [facility] Comment on above: Performed By: #### G LMET #### [facility] [address] [place] [address] RBC (Bld) [#/Vol] 2.78 mil/cmm Low 4.63-6.08 [facility] Comment on above: Performed By: #### G LMET #### [facility] [address] [place] [address] RDW SD 52.4 fl High 36.1-45.8 [facility] Comment on above: Performed By: #### G LMET #### [facility] [address] [place], [place] [address] WBC (Bld) [#/Vol] 9.06 thou/cmm Normal 4.23-9.07 [facility] Comment on above: Performed By: #### G LMET #### [facility] [address] [place], [place] [address] Magnesium Bloodon 09-05-2019 Magnesium [Mass/Vol] 1.3 mg/dL Low 1.6-2.6 [facility] Comment on above: Performed By: #### C _ANA #### [facility] [address] [place], [place] [address] PROGRESSon 09-05-2019 PROGRESS HNO ID: [id number] Author: Francine Roberts Service: Vascular Surgery Author [...] questions or concerns Mon-Mon 6a-5p please page [phone]. After 5pm and on Weekends and Holidays, please page [phone] if in ICU or [phone] if on RNF. Subjective SUBJECTIVE: Denies pain. [...] - 09/05/1965809/05/19 07 - 09/06/19 0659 Shift 1487-0458 7897-5855 4029-0713 24 Hour Total 2923-3787 5237-4493 9379-8366 24 Hour Total INTAKE Shift Total OUTPUT Urine 650 159 187 8500 Void (ml) 650 619 102 7421 Shift Total 650 438 327 5073 Weight (kg) 89.4 89.4 89.4 89.4 89.4 [...] Date Noted - Malnutrition of moderate degree ([facility]) 08/22/2019 - Gangrene of foot (HCC) 08/21/2019 - Diabetes (HCC) 08/21/2019 - HTN (hypertension) 08/21/2019 - Dyslipidemia 08/21/2019 - Hypothyroidism 08/21/2019 This is a 79 year old male with PMH of thyroid disease, HTN, dyslipidemia,claudicat ion, DM. 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 Normal [facility] Phosphorus Bloodon 0 Phosphate [Mass/Vol] 2.9 mg/dL Normal 2.5-4.9 [facility] Comment on above: Performed By: #### M AG #### [place] [address] Surgical Tissue Examon 09-04 Surgical Tissue Exam Test performed at [place] [address] NAME: ELIZABETH MODI REQUESTING: JOVANNY PARMAR MD [...] mild calcific atherosclerosis. Thrombi are not present. Attic Fans Mechanic sections are submitted as follows: 1 - soft tissue line of resection (black ink); 2-3 - chain sales representative sections of red-pink ischemic process at distal aspect; 4 - chain sales representative sections of vessels; 5 - chain sales representative section of bone following a period of decalcification. KVB:cindi ARENAS M.D. (Electronic signature on file) Signed out: 09/09/2019 14:52 PRINTED: 09/09/2019 Page 1 of 1 Normal [facility] Comment on above: Performed By: #### M AG #### [place] [address] Type and Screenon 09-05-2019 ABO group Nom (Bld) A Normal [facility] Comment on above: Performed By: #### M AG #### [place] [address] Comment See Below Normal [facility] Comment on above: Result Comment: Scre en &/or Xmatch expires in 3 days at 12 midnight. Redraw patient at that time. Performed By: #### M AG #### [place] [address] RH Type Positive Normal [facility] Comment on above: Performed By: #### M AG #### [facility] [address] [place], [place] [address] Basic Panelon 09-04-2019 Creatinine [Mass/Vol] 0.87 mg/dL Normal 0.67-1.17 [facility] Comment on above: Result Comment: Use of this assay is not recommended for patients undergoing treatment with phenindione, due to the potential for falsely depressed results. Performed By: #### F ERR #### [facility] [address] [place], [place] [address] Anion gap [Moles/Vol] 8 mmol/L Normal 8-16 [facility] Comment on above: Performed By: #### F ERR #### [facility] [address] [place], [place] [address] Calcium [Mass/Vol] 8.0 mg/dL Low 8.5-10.1 [facility] Comment on above: Performed By: #### F ERR #### [address] [address] CO2 [Moles/Vol] 25 mmol/L Normal 21-32 [facility] Comment on above: Performed By: #### F ERR #### [facility] [address] [place], [place] [address] Glucose [Mass/Vol] 113 mg/dL High 70-99 [facility] Comment on above: Performed By: #### F ERR #### [facility] [address] [place], [place] [address] Urea nitrogen [Mass/Vol] 23 mg/dL High 7-18 [facility] Comment on above: Performed By: #### F ERR #### [facility] [address] [place], [place] [address] Chloride [Moles/Vol] 110 mmol/L High 98-107 [facility] Comment on above: Performed By: #### F ERR #### [facility] [address] [place], [place] [address] Potassium [Moles/Vol] 4.0 mmol/L Normal 3.5-5.1 [facility] Comment on above: Performed By: #### F ERR #### [facility] [address] [place], [place] [address] Sodium [Moles/Vol] 139 mmol/L Normal 136-145 [facility] Comment on above: Performed By: #### F ERR #### [facility] [address] [place] [address] CASE MANAGEMon 09-04-2019 CASE MANAGEM HNO ID: [id number] Author: Tami SantiagoRn) KAVIN Patricio Service: Care Management Author Type: Registered Nurse Type: Care Mgt Progress Note Filed: 09/04/2019 9:41 AM Note Text: CARE MANAGEMENT PROGRESS NOTE SERVICE DATE: 09/04/2019 SERVICE TIME: 9:36 AM LOS: 14 days Chart reviewed. 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 Plan for [facility] at d/c. Pt will need auth when medically stable and likely cot transport. Will follow. SIGNATURE: Tami Patricio RN PATIENT NAME: Elizabeth Modi DATE: September 04, 2019 TIME: 9:36 AM PAGER/CONTACT #: [phone] Normal [facility] CONSULT PROGon 09-04-2019 CONSULT PROG HNO ID: [id number] Author: Doris Eden Service: Endocrinology Author Type: Physician Type: Consult Progress Note Filed: 09/04/2019 9:41 AM Note Text: ENDOCRINOLOGY CONSULT PROGRESS NOTE SERVICE DATE: 09/04/2019 SERVICE TIME: 9:20 AM Subjective INTERVAL HPI: Pt followed for diabetes mellitus type 2 with complications. Tr from [facility]; adm for right foot infection and gangrene; [...] 9:41 AM PAGER: [phone] Normal [facility] Hemogramon 09-04-2019 Erythrocyte distribution width (RBC) [Ratio] 15.8 % High 11.6-14.4 [facility] Comment on above: Performed By: #### F ERR #### [facility] [address] [place] [address] Hematocrit (Bld) [Volume fraction] 27.6 % Low 40.1-51.0 [facility] Comment on above: Performed By: #### F ERR #### [facility] [address] [place] [address] Hemoglobin (Bld) [Mass/Vol] 8.3 g/dL Low 13.7-17.5 [facility] Comment on above: Performed By: #### F ERR #### [place] [address] MCH (RBC) [Entitic mass] 28.0 pg Normal 25.7-32.2 [facility] Comment on above: Performed By: #### F ERR #### [facility] [address] [place] [address] MCHC (RBC) [Mass/Vol] 30.1 % Low 32.3-36.5 [facility] Comment on above: Performed By: #### F ERR #### [place] [address] MCV (RBC) [Entitic vol] 93.2 fL Normal 83.2-95.6 [facility] Comment on above: Performed By: #### F ERR #### [facility] [address] [place] [address] Platelet mean volume (Bld) [Entitic vol] 10.0 fL Normal 8.7-12.0 [facility] Comment on above: Performed By: #### F ERR #### [facility] [address] [place] [id number] Platelets (Bld) [#/Vol] 371 thou/cmm High 141-365 [facility] Comment on above: Performed By: #### F ERR #### [facility] [address] [place], [place] [address] RBC (Bld) [#/Vol] 2.96 mil/cmm Low 4.63-6.08 [facility] Comment on above: Performed By: #### F ERR #### [facility] [address] [place], [place] [address] RDW SD 51.6 fl High 36.1-45.8 [facility] Comment on above: Performed By: #### F ERR #### [facility] [address] [place], [place] [address] WBC (Bld) [#/Vol] 9.95 thou/cmm High 4.23-9.07 [facility] Comment on above: Performed By: #### F ERR #### [facility] [address] [place] [address] Magnesium Bloodon 09-04-2019 Magnesium [Mass/Vol] 1.8 mg/dL Normal 1.6-2.6 [facility] Comment on above: Performed By: #### M AG #### [facility] [address] [place] [address] PROGRESSon 09-04-2019 PROGRESS HNO ID: [id number] Author: Francine Roberts Service: Vascular Surgery Author [...] questions or concerns Mon-Mon 6a-5p please page [phone]. After 5pm and on Weekends and Holidays, [...] 0659 09/04/19 07 - 09/05/19 0659 Shift 7826-3372 1760-4120 0664-0931 24 Hour Total 9224-1591 4437-2954 0488-0717 24 Hour Total INTAKE IV 611 611 Volume (mL) (lactated ringers infusion) 511 511 Volume (mL) (magnesium sulfate in sterile water 4 g iv piggyback) 100 100 Shift Total 611 611 OUTPUT Urine 515 662 1369 Void (ml) 668 909 4165 Shift Total 177 999 9356 Weight (kg) 91.4 91.4 89.4 89.4 89.4 [...] lower extremity angiogram with partial occlusion R [employer], reconstitution at R below knee pop, 2-vessel [...] 2174 if on RNF. Normal [facility] Phosphorus Bloodon 0 Phosphate [Mass/Vol] 2.2 mg/dL Low 2.5-4.9 [facility] Comment on above: Performed By: #### C _ANA #### [facility] [address] [place] [id number] THERAPY NTon 09-04-2019 THERAPY NT HNO ID: [id number] Author: Marilyn (Pt) Mark Service: Physical Therapy Author Type: Physical Therapist Type: Therapy (PT/OT/Speech/Resp) Filed: 09/04/2019 3:34 PM Note Text: PHYSICAL THERAPY MISSED VISIT SERVICE DATE: 09/04/2019 SERVICE TIME: 1532 to 1532 ROOM: [place] [address] Attempted Treatment. Patient not seen due to Declined. Patient reports he is extremely tired today and is having his procedure tomorrow. States he is not feeling up to it today despite encouragement. Educated patient that we will visit him after his procedure. SIGNATURE: Marilyn Flores, PT PATIENT NAME: Elizabeth Modi DATE: September 04, 2019 TIME: 3:33 PM Normal [facility] ANES [place] 09-03-2019 ANES POST HNO ID: [id number] Author: Dwayne Kerns Service: Anesthesiology Author Type: [...] TIME: 11:44 PM PAGER/CONTACT #: [phone] Normal [facility] Basic Panelon 09-03-2019 Creatinine [Mass/Vol] 0.90 mg/dL Normal 0.67-1.17 [facility] Comment on above: Result Comment: Use of this assay is not recommended for patients undergoing treatment with phenindione, due to the potential for falsely depressed results. Performed By: #### C BC1 #### [address] [address] Anion gap [Moles/Vol] 7 mmol/L Low 8-16 [facility] Comment on above: Performed By: #### C BC1 #### [address] [address] Calcium [Mass/Vol] 7.9 mg/dL Low 8.5-10.1 [facility] Comment on above: Performed By: #### C BC1 #### [address] [address] CO2 [Moles/Vol] 27 mmol/L Normal 21-32 [facility] Comment on above: Performed By: #### C BC1 #### [address] [address] Glucose [Mass/Vol] 135 mg/dL High 70-99 [facility] Comment on above: Performed By: #### C BC1 #### [facility] [address] [place], [place] [address] Urea nitrogen [Mass/Vol] 25 mg/dL High 7-18 [facility] Comment on above: Performed By: #### C BC1 #### [facility] [address] [place], [place] [address] Chloride [Moles/Vol] 106 mmol/L Normal 98-107 [facility] Comment on above: Performed By: #### C BC1 #### [facility] [address] [place], [place] [address] Potassium [Moles/Vol] 4.4 mmol/L Normal 3.5-5.1 [facility] Comment on above: Performed By: #### C BC1 #### [facility] [address] [place], [place] [address] Sodium [Moles/Vol] 136 mmol/L Normal 136-145 [facility] Comment on above: Performed By: #### C BC1 #### [facility] [address] [place], [place] [address] CASE MANAGEMon 09-03-2019 CASE MANAGEM HNO ID: [id number] Author: Ammy (Rn) KAVIN Gutierres Service: ? [...] 03, 2019 TIME: 9:50 AM PAGER/CONTACT #: [phone] [facility] CONSULT PROGon 09-03-2019 CONSULT PROG HNO ID: [id number] Author: Doris Eden Service: Endocrinology Author Type: Physician Type: Consult Progress Note Filed: 09/03/2019 8:39 AM Note Text: ENDOCRINOLOGY CONSULT PROGRESS NOTE SERVICE DATE: 09/03/2019 SERVICE TIME: 8:05 AM Subjective INTERVAL HPI: Pt followed for diabetes mellitus type 2 with complications. Tr from [facility]; adm for right foot infection and gangrene; [...] 8:39 AM PAGER: [phone] Normal [facility] Hemogramon 09-03-2019 Erythrocyte distribution width (RBC) [Ratio] 15.4 % High 11.6-14.4 [facility] Comment on above: Performed By: #### M AG #### [place] [address] Hematocrit (Bld) [Volume fraction] 28.1 % Low 40.1-51.0 [facility] Comment on above: Performed By: #### M AG #### [place] [address] Hemoglobin (Bld) [Mass/Vol] 8.9 g/dL Low 13.7-17.5 [facility] Comment on above: Performed By: #### M AG #### [place] [address] MCH (RBC) [Entitic mass] 29.1 pg Normal 25.7-32.2 [facility] Comment on above: Performed By: #### M AG #### [place] [address] MCHC (RBC) [Mass/Vol] 31.7 % Low 32.3-36.5 [facility] Comment on above: Performed By: #### M AG #### [place] [id number] MCV (RBC) [Entitic vol] 91.8 fL Normal 83.2-95.6 [facility] Comment on above: Performed By: #### M AG #### [facility] [address] [place] [address] Platelet mean volume (Bld) [Entitic vol] 9.4 fL Normal 8.7-12.0 [facility] Comment on above: Performed By: #### M AG #### [place] [address] Platelets (Bld) [#/Vol] 410 thou/cmm High 141-365 [facility] Comment on above: Performed By: #### M AG #### [place] [address] RBC (Bld) [#/Vol] 3.06 mil/cmm Low 4.63-6.08 [facility] Comment on above: Performed By: #### M AG #### [place] [address] RDW SD 48.7 fl High 36.1-45.8 [facility] Comment on above: Performed By: #### M AG #### [facility] [address] [place] [address] WBC (Bld) [#/Vol] 12.94 thou/cmm High 4.23-9.07 [facility] Comment on above: Performed By: #### M AG #### [place] [address] Magnesium Bloodon 09-03-2019 Magnesium [Mass/Vol] 1.4 mg/dL Low 1.6-2.6 [facility] Comment on above: Performed By: #### M AG #### [place] [address] NURSING PROGon 09-03-2019 NURSING PROG HNO ID: [id number] Author: Kassidy (Rn) KAVIN Lew Service: Nursing Author Type: Registered Nurse Type: Nursing Progress Note Filed: 09/03/2019 11:57 AM Note Text: Nursing Progress Note Patient Name: Elizabeth Modi Patient Location: [id number] __ Daily Note: 1047--report called to Darrin Chau RN. 1113--pt transferred to 4226 via chair on RA with Rn and Sr Tech. Pt remains in chair, chair locked, call light within reach, tele applied. KAVIN Chau in room. This note was completed by: Kassidy Lew RN [facility] PROGRESSon 09-03-2019 PROGRESS HNO ID: [id number] Author: Francine Roberts Service: Vascular Surgery Author [...] questions or concerns Mon-Fri 6a-5p please page [phone]. After 5pm and on Weekends and Holidays, please page [phone] if in ICU or [phone] if on RNF. Subjective SUBJECTIVE: SARATH. Says [...] 0659 09/03/19 07 - 09/04/19 0659 Shift 8801-3877 9967-7663 3534-7362 24 Hour Total 6810-3606 5176-4227 2153-3124 24 Hour Total INTAKE Shift Total OUTPUT [...] lower extremity angiogram with partial occlusion R [employer], reconstitution at R below knee pop, 2-vessel [...] then determination on AKA/BKA - transfer to [facility] today SIGNATURE: Francine Roberts MD PATIENT NAME: Elizabeth Modi DATE: September 03, 2019 TIME: 6:21 AM Vascular AND Thoracic Surgery Service Pager: For questions or concerns Mon-Mon 6a-5p please page [phone]. After 5pm and on Weekends and Holidays, please page [phone] if in ICU or [phone] if on RNF. Normal [facility] Phosphorus Bloodon 0 Phosphate [Mass/Vol] 2.9 mg/dL Normal 2.5-4.9 [facility] Comment on above: Performed By: #### P 8 #### [facility] [address] [place] [id number] THERAPY NTon 09-03-2019 THERAPY NT HNO ID: [id number] Author: Tamiko SantiagoOtr/Vickie Nur Service: Occupational Therapy Author Type: Occupational Therapist Type: Therapy (PT/OT/Speech/Resp) Filed: 09/03/2019 9:19 AM Note Text: Occupational Therapy Evaluation(Re-Evaluati on) SERVICE DATE: 09/03/2019 SERVICE TIME: 0845 to 0900 ROOM: [id number] Recommended Discharge Disposition: Acute Rehab Justification [...] and signs-other Interventions Provided: Re-evaluation $ Reevaluation (34243) Billed Units: 1 unit Total Timed Code Treatment Minutes: 39 Total Treatment Time (minutes): 15 SUBJECTIVE: Current Hospital Course: Chart reviewed; R femoral endarterectomy 09/02/2019 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 I am so glad I got to the chair. 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: second time worker Entry To Home: Stairs;With Rail Number Of [...] 2019 TIME: 9:15 AM Normal [facility] THERAPY NT HNO ID: [id number] Author: Marilyn (Pt) Mark Service: Physical Therapy Author Type: Physical Therapist Type: Therapy (PT/OT/Speech/Resp) Filed: 09/03/2019 9:12 AM Note Text: Physical Therapy Treatment SERVICE DATE: 09/03/2019 SERVICE TIME: 08 to 0853 ROOM: [place] [address] Recommended Discharge Disposition: Acute Rehab Recommended Discharge [...] Weakness (generalized) Interventions Provided: Re-evaluation $ Reevaluation (31348) Billed Units: 1 unit Re-evaluation completed due to completion of R femoral endarterectomy Therapeutic Activity (95787) Treatment Minutes: 10 1 unit Skilled Intervention(s): [...] Environment Patient Lives With: Self/Alone Assistance Available: second time worker Entry To Home: Stairs;With Rail Number Of [...] 2019 TIME: 9:08 AM Normal [facility] US ARTERIAL PVR LOWERon - US ARTERIAL PVR LOWER * * *Final Report* * * DATE OF EXAM: Sep 03 2019 11:07AM A2U 1107 - US ARTERIAL PVR LOWER / PROCEDURE REASON: s/p surgery * * * * Physician Interpretation * * * * Non-Invasive Vascular Laboratory [facility] Lower Extremity Arterial Physiology Study Bilateral/Complete Date of service/time: 09/03/2019 9:25:00 AM Name: ELIZABETH MODI Date of : 1940 Age: 79 years Gender: M Medical History Tobacco: Former PAD: Yes Hypertension: Yes Diabetes: Yes Clinical Indication Post operative right [employer] endarterectomy. TECHNIQUE -------- An arterial physiological examination [...] Interpreting physician: Gordo Figueroa MD Final RP Homicide Investigator: RICHARD Maririprice Date/Time: Sep 03 2019 9:25A Dictated by : GORDO FIGUEROA MD This examination was interpreted and the report reviewed and electronically signed by: GORDO FIGUEROA MD on Sep 05 2019 9:48AM EST Normal [facility] US VEIN MAPPING LOWER BILon 09-03-2019 US VEIN MAPPING LOWER JIGNA * * *Final Rep ort* * * DATE OF EXAM: Sep 02 2019 10:07PM [facility] 1081 - US VEIN MAPPING LOWER [...] lower extremity. Superficial venous measurements as above. Homicide Investigator: PSCB Transcribe Date/Time: Sep 02 2019 10:28P Dictated by : DWAYNE BURTON MD This examination was interpreted and the report reviewed and electronically signed by: DWAYNE BURTON MD on Sep 02 2019 10:38PM [facility], [place], operated by [facility] ANES PREOPon 09-02-2019 ANES PREOP HNO ID: [id number] Author: Tammy Hinson Service: Anesthesiology Author Type: [...] September 02, 2019 TIME: 9:50 AM CSN: [id number] [facility] BRIEF OP NOTon 09-02-2019 BRIEF OP NOT HNO ID: [id number] Author: Francine Roberts Service: Vascular Surgery Author [...] BRIEF OPERATIVE / PROCEDURE NOTE LOG ID: [id number] Patient Name:Elizabeth Modi CSN: [id number] Surgery/Procedure Date: 09/02/2019 Incision/Procedure Start Time: 11:01 AM Incision Close/Procedure End Time: Surgeon(s)/Procedurali st(s) and Clinical Study Manager(s): Surgeon(s) and Role: * Jovanny Parmar - Primary * Francine Wood) Phyllis - Resident - Assisting Manager Of Clinical: Lori Schmid SA Procedure(s): Procedure(s) (LRB): ENDARTERECTOMY [...] TIME: 12:47 PM PAGER/CONTACT #: [phone] Normal [facility] Basic Panelon 09-02-2019 Creatinine [Mass/Vol] 0.78 mg/dL Normal 0.67-1.17 [facility] Comment on above: Result Comment: Use of this assay is not recommended for patients undergoing treatment with phenindione, due to the potential for falsely depressed results. Performed By: #### M AG #### [place] [address] Anion gap [Moles/Vol] 12 mmol/L Normal 8-16 [facility] Comment on above: Performed By: #### M AG #### [place] [id number] Calcium [Mass/Vol] 8.4 mg/dL Low 8.5-10.1 [facility] Comment on above: Performed By: #### M AG #### [facility] [address] [place], [place] [address] CO2 [Moles/Vol] 24 mmol/L Normal 21-32 [facility] Comment on above: Performed By: #### M AG #### [facility] [address] [place], [place] [address] Urea nitrogen [Mass/Vol] 24 mg/dL High 7-18 [facility] Comment on above: Performed By: #### M AG #### [facility] [address] [place], [place] [address] Glucose [Mass/Vol] 148 mg/dL High 70-99 [facility] Comment on above: Performed By: #### M AG #### [facility] [address] [place], [place] [address] Chloride [Moles/Vol] 104 mmol/L Normal 98-107 [facility] Comment on above: Performed By: #### M AG #### [facility] [address] [place], [place] [address] Potassium [Moles/Vol] 4.1 mmol/L Normal 3.5-5.1 [facility] Comment on above: Performed By: #### M AG #### [facility] [address] [place], [place] [address] Sodium [Moles/Vol] 136 mmol/L Normal 136-145 [facility] Comment on above: Performed By: #### M AG #### [facility] [address] [place], [place] [address] CONSULT PROGon 09-02-2019 CONSULT PROG HNO ID: [id number] Author: Doris Eden Service: Endocrinology Author Type: Physician Type: Consult Progress Note Filed: 09/02/2019 1:35 PM Note Text: ENDOCRINOLOGY CONSULT PROGRESS NOTE SERVICE DATE: 09/02/2019 SERVICE TIME: 1:25 PM Subjective INTERVAL HPI: Pt followed for diabetes mellitus type 2 with complications. Tr from [facility]; adm for right foot infection and gangrene; [...] 1:35 PM PAGER: [phone] Normal [facility] Hemogramon 09-02-2019 Erythrocyte distribution width (RBC) [Ratio] 14.9 % High 11.6-14.4 [facility] Comment on above: Performed By: #### C BC1 #### [facility] [address] [place] [address] Hematocrit (Bld) [Volume fraction] 33.4 % Low 40.1-51.0 [facility] Comment on above: Performed By: #### C BC1 #### [place] [address] Hemoglobin (Bld) [Mass/Vol] 10.3 g/dL Low 13.7-17.5 [facility] Comment on above: Performed By: #### C BC1 #### [place] [address] MCH (RBC) [Entitic mass] 28.1 pg Normal 25.7-32.2 [facility] Comment on above: Performed By: #### C BC1 #### [place] [address] MCHC (RBC) [Mass/Vol] 30.8 % Low 32.3-36.5 [facility] Comment on above: Performed By: #### C BC1 #### [place] [address] MCV (RBC) [Entitic vol] 91.0 fL Normal 83.2-95.6 [facility] Comment on above: Performed By: #### C BC1 #### [place] [address] Platelet mean volume (Bld) [Entitic vol] 9.7 fL Normal 8.7-12.0 [facility] Comment on above: Performed By: #### C BC1 #### [facility] [address] [place], [place] [address] Platelets (Bld) [#/Vol] 425 thou/cmm High 141-365 [facility] Comment on above: Performed By: #### C BC1 #### [facility] [address] [place], [place] [address] RBC (Bld) [#/Vol] 3.67 mil/cmm Low 4.63-6.08 [facility] Comment on above: Performed By: #### C BC1 #### [facility] [address] [place], [place] [address] RDW SD 47.8 fl High 36.1-45.8 [facility] Comment on above: Performed By: #### C BC1 #### [facility] [address] [place], [place] [address] WBC (Bld) [#/Vol] 9.66 thou/cmm High 4.23-9.07 [facility] Comment on above: Performed By: #### C BC1 #### [facility] [address] [place], [place] [address] Magnesium Bloodon 09-02-2019 Magnesium [Mass/Vol] 1.5 mg/dL Low 1.6-2.6 [facility] Comment on above: Performed By: #### M AG #### [facility] [address] [place] [address] OPERATIVE NOon 09-02-2019 OPERATIVE NO HNO ID: [id number] Author: Jovanny Parmar Service: Vascular Surgery Author Type: Physician Type: Operative Report Filed: 09/30/2019 2:43 PM Note Text: [facility] - Operative Report ELIZABETH MODI : 1940 AGE: 79. SEX: M PATIENT TYPE: I HOSP SVC: KEENAN LOCATION: [facility] ATTENDING PHYSICIAN: JOVANNY PARMAR CSN NUMBER: [id number] DATE OF SURGERY/PROCEDURE: 09/02/2019 INCISION/PROCEDURE START TIME: 12:28 PM INCISION CLOSE/PROCEDURE END TIME: 2:14 PM PREOPERATIVE DIAGNOSIS: Gangrene, right lower extremity. POSTOPERATIVE DIAGNOSIS: Gangrene, right lower extremity. SURGEON: Jovanny Parmar MD IT PROGRAM MANAGER: Francine Roberts. SURGERY/PROCEDURE: Right femoral endarterectomy [...] recovery in stable condition. Jovanny Parmar MD LM:[id number] /[id number] [facility] PROGRESSon 09-02-2019 PROGRESS HNO ID: [id number] Author: Zack Jenkins Service: Hospital Medicine Author Type: Physician Type: Progress Notes Filed: 09/02/2019 5:22 PM Note Text: DEPARTMENT OF HOSPITAL MEDICINE PROGRESS NOTE SERVICE DATE: 09/02/2019 SERVICE TIME: 9am Hospital Medicine/Primary Attending: Zack Jenkins, NIGHT AND WEEKEND COVERAGE: After 7pm please page [phone] CHIEF COMPLAINT: No new complaints SUBJECTIVE: Pt [...] amputation -Angio 08/26 showing partial occlusion R [employer] -Vascular and Ortho consults -Plan is for?endarterectomy [...] this note may have been generated using Chobani voice recognition software. Reasonable efforts were made to correct any dictation errors that resulted due to the programming of this software but some may still be present. Normal [facility] PROGRESS HNO ID: [id number] Author: Francine Roberts Service: Vascular Surgery Author [...] lower extremity angiogram with partial occlusion R [employer], reconstitution at R below knee pop, 2-vessel [...] 2174 if on RNF. Normal [facility] PT EDon 09-02-2019 PT ED HNO ID: [id number] Author: Chelsea (Rn) Shun Paz RN Service: [...] Department: [place] SURGERY OR Normal [facility] Phosphorus Bloodon 0 Phosphate [Mass/Vol] 2.9 mg/dL Normal 2.5-4.9 [facility] Comment on above: Performed By: #### P 8 #### [place] [address] CONSULT PROGon 09-01-2019 CONSULT PROG HNO ID: [id number] Author: Doris Eden Service: Endocrinology Author Type: Physician Type: Consult Progress Note Filed: 09/01/2019 9:12 AM Note Text: ENDOCRINOLOGY CONSULT PROGRESS NOTE SERVICE DATE: 09/01/2019 SERVICE TIME: 9:05 AM Subjective INTERVAL HPI: Pt followed for diabetes mellitus type 2 with complications. Tr from [facility]; adm for right foot infection and gangrene; [...] 9:12 AM PAGER: [phone] Normal [facility] Hemogramon 09-01-2019 Erythrocyte distribution width (RBC) [Ratio] 14.9 % High 11.6-14.4 [facility] Comment on above: Performed By: #### M AG #### [address] [address] Hematocrit (Bld) [Volume fraction] 27.1 % Low 40.1-51.0 [facility] Comment on above: Performed By: #### M AG #### [facility] [address] [place] [address] Hemoglobin (Bld) [Mass/Vol] 8.5 g/dL Low 13.7-17.5 [facility] Comment on above: Performed By: #### M AG #### [facility] [address] [place] [address] MCH (RBC) [Entitic mass] 28.1 pg Normal 25.7-32.2 [facility] Comment on above: Performed By: #### M AG #### [facility] [address] [place] [address] MCHC (RBC) [Mass/Vol] 31.4 % Low 32.3-36.5 [facility] Comment on above: Performed By: #### M AG #### [place] [address] MCV (RBC) [Entitic vol] 89.7 fL Normal 83.2-95.6 [facility] Comment on above: Performed By: #### M AG #### [place] [address] Platelet mean volume (Bld) [Entitic vol] 9.4 fL Normal 8.7-12.0 [facility] Comment on above: Performed By: #### M AG #### [place] [address] Platelets (Bld) [#/Vol] 334 thou/cmm Normal 141-365 [facility] Comment on above: Performed By: #### M AG #### [place] [address] RBC (Bld) [#/Vol] 3.02 mil/cmm Low 4.63-6.08 [facility] Comment on above: Performed By: #### M AG #### [place] [address] RDW SD 46.4 fl High 36.1-45.8 [facility] Comment on above: Performed By: #### M AG #### [place] [address] WBC (Bld) [#/Vol] 7.69 thou/cmm Normal 4.23-9.07 [facility] Comment on above: Performed By: #### M AG #### [facility] [address] [place] [address] PROGRESSon 09-01-2019 PROGRESS HNO ID: [id number] Author: Zack Jenkins Service: Hospital Medicine Author Type: Physician Type: Progress Notes Filed: 09/01/2019 4:10 PM Note Text: DEPARTMENT OF HOSPITAL MEDICINE PROGRESS NOTE SERVICE DATE: 09/01/2019 SERVICE TIME: 4:07 PM Hospital Medicine/Primary Attending: Zack Jenkins, DO NIGHT AND WEEKEND COVERAGE: After 7pm please page [phone] CHIEF COMPLAINT: No new complaints SUBJECTIVE: Pt [...] amputation -Angio 08/26 showing partial occlusion R [employer] -Vascular and Ortho consults -Plan is for?endarterectomy [...] this note may have been generated using Chobani voice recognition software. Reasonable efforts were made to correct any dictation errors that resulted due to the programming of this software but some may still be present. Normal [facility] PROGRESS HNO ID: [id number] Author: Francine Roberts Service: Vascular Surgery Author [...] questions or concerns Mon-Mon 6a-5p please page [phone]. After 5pm and on Weekends and Holidays, please page [phone] if in ICU or [phone] if on RNF. Subjective SUBJECTIVE: NAEON. Denies [...] 0659 09/01/19 07 - 09/02/19 0659 Shift 6839-9555 8836-6677 4949-6939 24 Hour Total 7248-8243 7780-2118 5666-2077 24 Hour Total INTAKE Shift Total OUTPUT [...] lower extremity angiogram with partial occlusion R [employer], reconstitution at R below knee pop, 2-vessel [...] statin?and aspirin -?Further care per primary SIGNATURE: Francien Roberts MD PATIENT NAME: Elizabeth Modi DATE: September 01, 2019 TIME: 6:21 AM Vascular AND Thoracic Surgery Service Pager: For questions or concerns Mon-Mon 6a-5p please page [phone]. After 5pm and on Weekends and Holidays, please page [phone] if in ICU or [phone] if on RNF. Normal [facility] THERAPY NTon 09-01-2019 THERAPY NT HNO ID: [id number] Author: Sheridan (Pt) Antwan Service: Physical Therapy Author Type: Physical Therapist Type: Therapy (PT/OT/Speech/Resp) Filed: 09/01/2019 4:02 PM Note Text: Physical Therapy Treatment SERVICE DATE: 09/01/2019 SERVICE TIME: 1520 to 1538 ROOM: [place] [address] Recommended Discharge Disposition: Acute Rehab Justification For [...] l;Muscle Weakness (generalized) Interventions Provided: Therapeutic Activity (08762) Therapeutic Activity (30908) Treatment Minutes: 18 1 unit Skilled Intervention(s): Functional mobility performed as described below. In EOB sitting for improved strength, ROM, conditioning, function: L ankle DF/PF, glute sets, LAQs, marching, abd/iso add, 2 x 10 reps each; instructed ex technique with short rest breaks needed. Pt education re: rehab process s/p amputation; practiced scooting along EOB for carryover to pybjhij-hw-yehxlhc transfers, pt education / cues for increased [...] Environment Patient Lives With: Self/Alone Assistance Available: second time worker Entry To Home: Stairs;With Rail Number Of [...] Toilet/Commode Gait Stairs Curb Step Car Transfer -[facility]: 3: Sit at edge of bed Please see discipline specific clinical documentation flowsheet for complete details for this therapy evaluation/treatment. SIGNATURE: Sheridan Moncada PT PATIENT NAME: Elizabeth Modi DATE: September 01, 2019 TIME: 3:55 PM Normal [facility] Basic Panelon 08-31-2019 Creatinine [Mass/Vol] 0.76 mg/dL Normal 0.67-1.17 [facility] Comment on above: Result Comment: Use of this assay is not recommended for patients undergoing treatment with phenindione, due to the potential for falsely depressed results. Performed By: #### C _ANA #### [facility] [address] [place], [place] [address] Anion gap [Moles/Vol] 11 mmol/L Normal 8-16 [facility] Comment on above: Performed By: #### C _ANA #### [address] [address] Calcium [Mass/Vol] 8.2 mg/dL Low 8.5-10.1 [facility] Comment on above: Performed By: #### C _ANA #### [address] [address] CO2 [Moles/Vol] 23 mmol/L Normal 21-32 [facility] Comment on above: Performed By: #### C _ANA #### [address] [address] Glucose [Mass/Vol] 85 mg/dL Normal 70-99 [facility] Comment on above: Performed By: #### C _ANA #### [address] [address] Urea nitrogen [Mass/Vol] 21 mg/dL High 7-18 [facility] Comment on above: Performed By: #### C _ANA #### [facility] [address] [place], [place] [address] Chloride [Moles/Vol] 106 mmol/L Normal 98-107 [facility] Comment on above: Performed By: #### C _ANA #### [address] [address] Potassium [Moles/Vol] 3.9 mmol/L Normal 3.5-5.1 [facility] Comment on above: Performed By: #### C _ANA #### [facility] [address] [place], [place] [address] Sodium [Moles/Vol] 136 mmol/L Normal 136-145 [facility] Comment on above: Performed By: #### C _ANA #### [facility] [address] [place], [place] [address] CONSULT PROGon 08-31-2019 CONSULT PROG HNO ID: [id number] Author: Doris Eden Service: Endocrinology Author Type: Physician Type: Consult Progress Note Filed: 08/31/2019 8:08 AM Note Text: ENDOCRINOLOGY CONSULT PROGRESS NOTE SERVICE DATE: 08/31/2019 SERVICE TIME: 7:50 AM Subjective INTERVAL HPI: Pt followed for diabetes mellitus type 2 with complications. Tr from [facility]; adm for right foot infection and gangrene; [...] 8:08 AM PAGER: [phone] Normal [facility] Hemogramon 08-31-2019 Erythrocyte distribution width (RBC) [Ratio] 14.5 % High 11.6-14.4 [facility] Comment on above: Performed By: #### M AG #### [place] [address] Hematocrit (Bld) [Volume fraction] 31.2 % Low 40.1-51.0 [facility] Comment on above: Performed By: #### M AG #### [facility] [address] [place], [place] [address] Hemoglobin (Bld) [Mass/Vol] 10.0 g/dL Low 13.7-17.5 [facility] Comment on above: Performed By: #### M AG #### [facility] [address] [place], [place] [address] MCH (RBC) [Entitic mass] 28.7 pg Normal 25.7-32.2 [facility] Comment on above: Performed By: #### M AG #### [facility] [address] [place] [address] MCHC (RBC) [Mass/Vol] 32.1 % Low 32.3-36.5 [facility] Comment on above: Performed By: #### M AG #### [facility] [address] [place] [address] MCV (RBC) [Entitic vol] 89.4 fL Normal 83.2-95.6 [facility] Comment on above: Performed By: #### M AG #### [facility] [address] [place] [address] Platelet mean volume (Bld) [Entitic vol] 9.4 fL Normal 8.7-12.0 [facility] Comment on above: Performed By: #### M AG #### [facility] [address] [place] [address] Platelets (Bld) [#/Vol] 385 thou/cmm High 141-365 [facility] Comment on above: Performed By: #### M AG #### [facility] [address] [place] [address] RBC (Bld) [#/Vol] 3.49 mil/cmm Low 4.63-6.08 [facility] Comment on above: Performed By: #### M AG #### [facility] [address] [place] [address] RDW SD 45.1 fl Normal 36.1-45.8 [facility] Comment on above: Performed By: #### M AG #### [facility] [address] [place] [address] WBC (Bld) [#/Vol] 8.81 thou/cmm Normal 4.23-9.07 [facility] Comment on above: Performed By: #### M AG #### [facility] [address] [place] [address] Magnesium Bloodon 08-31-2019 Magnesium [Mass/Vol] 1.1 mg/dL Low 1.6-2.6 [facility] Comment on above: Performed By: #### M AG #### [facility] [address] [place] [id number] PROGRESSon 08-31-2019 PROGRESS HNO ID: [id number] Author: Zack Jenkins Service: Hospital Medicine Author Type: Physician Type: Progress Notes Filed: 08/31/2019 4:57 PM Note Text: DEPARTMENT OF HOSPITAL MEDICINE PROGRESS NOTE SERVICE DATE: 08/31/2019 SERVICE TIME: 4:53 PM Hospital Medicine/Primary Attending: Zack Jenkins, DO NIGHT AND WEEKEND COVERAGE: After 7pm please page [phone] CHIEF COMPLAINT: no new complaints SUBJECTIVE: Pt [...] amputation -Angio 08/26 showing partial occlusion R [employer] -Vascular and Ortho consults -Plan is for?endarterectomy [...] units Sub Q BID?? ? Disposition:?Home with [facility]?pending progress and surgery? Plan of care discussed with: Provider, RN, Patient SIGNATURE: Zack Jenkins DO PATIENT NAME: Elizabeth Modi DATE: August 31, 2019 TIME: 4:53 PM PAGER/CONTACT #: Erasmo webber pager Disclaimer: Portions of this note may have been generated using Chobani voice recognition software. Reasonable efforts were made to correct any dictation errors that resulted due to the programming of this software but some may still be present. Normal [facility] PROGRESS HNO ID: [id number] Author: Francine Roberts Service: Vascular Surgery Author [...] questions or concerns Mon-Mon 6a-5p please page [phone]. After 5pm and on Weekends and Holidays, please page [phone] if in ICU or [phone] if on RNF. Subjective SUBJECTIVE: NAEON. Denies [...] 0659 08/31/19 0700 - 09/01/19 0659 Shift 4733-8285 3783-4672 3759-3515 24 Hour Total 9691-5882 3361-6349 3060-0314 24 Hour Total INTAKE Shift Total OUTPUT Urine 500 318 569 8269 Void (ml) 500 990 728 4310 # of BMs Number of BMs 1 x 1 x Shift Total 500 574 739 8961 Weight (kg) 90.9 90.9 89.6 89.6 89.6 [...] on 08/27/2019 - showing partial occlusion R [employer] - Right femoral endarterectomy on Monday, then [...] 2174 if on RNF. Normal [facility] Phosphorus Bloodon 0 Phosphate [Mass/Vol] 3.3 mg/dL Normal 2.5-4.9 [facility] Comment on above: Performed By: #### C BC1 #### [place] [address] Basic Panelon 08-30-2019 Creatinine [Mass/Vol] 0.80 mg/dL Normal 0.67-1.17 [facility] Comment on above: Result Comment: Use of this assay is not recommended for patients undergoing treatment with phenindione, due to the potential for falsely depressed results. Performed By: #### M AG #### [facility] [address] [place] [address] Anion gap [Moles/Vol] 12 mmol/L Normal 8-16 [facility] Comment on above: Performed By: #### M AG #### [facility] [address] [place] [address] Calcium [Mass/Vol] 7.7 mg/dL Low 8.5-10.1 [facility] Comment on above: Performed By: #### M AG #### [facility] [address] [place] [address] CO2 [Moles/Vol] 24 mmol/L Normal 21-32 [facility] Comment on above: Performed By: #### M AG #### [facility] [address] [place], [place] [address] Glucose [Mass/Vol] 70 mg/dL Normal 70-99 [facility] Comment on above: Performed By: #### M AG #### [facility] [address] [place], [place] [address] Urea nitrogen [Mass/Vol] 16 mg/dL Normal 7-18 [facility] Comment on above: Performed By: #### M AG #### [facility] [address] [place], [place] [address] Chloride [Moles/Vol] 106 mmol/L Normal 98-107 [facility] Comment on above: Performed By: #### M AG #### [facility] [address] [place], [place] [address] Potassium [Moles/Vol] 4.0 mmol/L Normal 3.5-5.1 [facility] Comment on above: Performed By: #### M AG #### [facility] [address] [place], [place] [address] Sodium [Moles/Vol] 138 mmol/L Normal 136-145 [facility] Comment on above: Performed By: #### M AG #### [facility] [address] [place], [place] [address] CONSULT PROGon 08-30-2019 CONSULT PROG HNO ID: [id number] Author: Doris Eden Service: Endocrinology Author Type: Physician Type: Consult Progress Note Filed: 08/30/2019 8:57 AM Note Text: ENDOCRINOLOGY CONSULT PROGRESS NOTE SERVICE DATE: 08/30/2019 SERVICE TIME: 8:45 AM Subjective INTERVAL HPI: Pt followed for diabetes mellitus type 2 with complications. Tr from [facility]; adm for right foot infection and gangrene; [...] 8:57 AM PAGER: [phone] Normal [facility] Hemogramon 08-30-2019 Erythrocyte distribution width (RBC) [Ratio] 14.1 % Normal 11.6-14.4 [facility] Comment on above: Performed By: #### C BC1 #### [facility] [address] [place], [place] [address] Hematocrit (Bld) [Volume fraction] 28.8 % Low 40.1-51.0 [facility] Comment on above: Performed By: #### C BC1 #### [facility] [address] [place], [place] [address] Hemoglobin (Bld) [Mass/Vol] 9.0 g/dL Low 13.7-17.5 [facility] Comment on above: Performed By: #### C BC1 #### [facility] [address] [place] [address] MCH (RBC) [Entitic mass] 28.3 pg Normal 25.7-32.2 [facility] Comment on above: Performed By: #### C BC1 #### [facility] [address] [place] [address] MCHC (RBC) [Mass/Vol] 31.3 % Low 32.3-36.5 [facility] Comment on above: Performed By: #### C BC1 #### [facility] [address] [place] [address] MCV (RBC) [Entitic vol] 90.6 fL Normal 83.2-95.6 [facility] Comment on above: Performed By: #### C BC1 #### [facility] [address] [place] [address] Platelet mean volume (Bld) [Entitic vol] 9.7 fL Normal 8.7-12.0 [facility] Comment on above: Performed By: #### C BC1 #### [facility] [address] [place], [place] [address] Platelets (Bld) [#/Vol] 388 thou/cmm High 141-365 [facility] Comment on above: Performed By: #### C BC1 #### [facility] [address] [place], [place] [address] RBC (Bld) [#/Vol] 3.18 mil/cmm Low 4.63-6.08 [facility] Comment on above: Performed By: #### C BC1 #### [facility] [facility] [address] [place], [place] [address] RDW SD 44.2 fl Normal 36.1-45.8 [facility] Comment on above: Performed By: #### C BC1 #### [facility] [address] [place], [place] [address] WBC (Bld) [#/Vol] 9.52 thou/cmm High 4.23-9.07 [facility] Comment on above: Performed By: #### C BC1 #### [facility] [address] [place] [id number] NUTRITIONon 08-30-2019 NUTRITION HNO ID: [id number] Author: Snow Serna Service: Nutrition Therapy Author Type: Registered Dietitian Type: Nutrition Filed: 08/30/2019 1:41 PM Note Text: NUTRITION THERAPY PROGRESS NOTE SERVICE DATE: 08/30/2019 SERVICE TIME: 11:33 AM Nutrition Assessment: Recommended Malnutrition Diagnosis: Moderate Protein-Calorie Malnutrition (08/22/19 1436 : Keturah ([employer]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) Valery) Estimated kilocalorie needs: 3454-7029 Calorie Calculation Method: 30-35 kcals/kg Estimated protein [...] August 30, 2019 TIME: 11:33 AM PAGER: [phone] Normal [facility] PROGRESSon 08-30-2019 PROGRESS HNO ID: [id number] Author: Zack Jenkins Service: Hospital Medicine Author Type: Physician Type: Progress Notes Filed: 08/30/2019 5:31 PM Note Text: DEPARTMENT OF HOSPITAL MEDICINE PROGRESS NOTE SERVICE DATE: 08/30/2019 SERVICE TIME: 5:24 PM Hospital Medicine/Primary Attending: Zack Jenkins, DO NIGHT AND WEEKEND COVERAGE: After 7pm please page [phone] CHIEF COMPLAINT: R lower leg pain SUBJECTIVE: [...] amputation -Angio 08/26 showing partial occlusion R [employer] -Vascular and Ortho consults -Plan is for [...] units Sub Q BID?? ? Disposition:?Home with [facility]?pending progress and surgery? Plan of care discussed with: Provider, RN, Patient SIGNATURE: Zack Jenkins DO PATIENT NAME: Elizabeth Modi DATE: August 30, 2019 TIME: 5:24 PM PAGER/CONTACT #: Team color pager Disclaimer: Portions of this note may have been generated using Chobani voice recognition software. Reasonable efforts were made to correct any dictation errors that resulted due to the programming of this software but some may still be present. Normal [facility] PROGRESS HNO ID: [id number] Author: Francine Roberts Service: General Surgery Author [...] questions or concerns Mon-Fri 6a-5p please page [phone]. After 5pm and on Weekends and Holidays, please page [phone] if in ICU or [phone] if on RNF. Subjective SUBJECTIVE: Mr. Modi [...] 0659 08/30/19 07 - 08/31/19 0659 Shift 9245-4710 0428-7673 1184-6587 24 Hour Total 1222-0988 2418-3570 4557-2727 24 Hour Total INTAKE IV 1100 1100 [...] on 08/27/2019 - showing partial occlusion R [employer] - Endarterectomy on Monday, then determination on [...] questions or concerns Mon-Mon 6a-5p please page [phone]. After 5pm and on Weekends and Holidays, please page [phone] if in ICU or [phone] if on RNF. Normal [facility] THERAPY NTon 08-30-2019 THERAPY NT HNO ID: [id number] Author: Tanja Drummond Service: Physical Therapy Author Type: Physical Therapist Type: Therapy (PT/OT/Speech/Resp) Filed: 08/30/2019 5:00 PM Note Text: Physical Therapy Treatment SERVICE DATE: 08/30/2019 SERVICE TIME: 1415 to 1500 ROOM: [id number] Recommended Discharge Disposition: Acute Rehab Recommended Discharge [...] l;Muscle Weakness (generalized) Interventions Provided: Therapeutic Exercise (12731);Therapeutic Activity (66736) Therapeutic Exercise (89312) Treatment Minutes: 25 2 units Skilled Intervention(s): Patient completed general strengthening exercises in supine, sitting (ankle pump, quad set, gluteal set, heel slide, hip abd/add, straight leg raise, long arc quad, short arc quad, hip adductor squeeze, assisted bridging) x 15-20 reps bilateral lower extremity, with min assist, with min verbal/tactile cues for optimal muscle recruitment, muscle activation, and muscle strengthening. Therapeutic Activity (52260) Treatment Minutes: 15 1 unit Skilled Intervention(s): [...] Environment Patient Lives With: Self/Alone Assistance Available: second time worker Entry To Home: Stairs;With Rail Number Of [...] 2019 TIME: 4:56 PM Normal [facility] Basic Panelon 08-29-2019 Creatinine [Mass/Vol] 0.80 mg/dL Normal 0.67-1.17 [facility] Comment on above: Result Comment: Use of this assay is not recommended for patients undergoing treatment with phenindione, due to the potential for falsely depressed results. Performed By: #### C _ANA #### [address] [address] Anion gap [Moles/Vol] 9 mmol/L Normal 8-16 [facility] Comment on above: Performed By: #### C _ANA #### [address] [address] CO2 [Moles/Vol] 27 mmol/L Normal 21-32 [facility] Comment on above: Performed By: #### C _ANA #### [address] [address] Glucose [Mass/Vol] 83 mg/dL Normal 70-99 [facility] Comment on above: Performed By: #### C _ANA #### [facility] [address] [place], [place] [address] Urea nitrogen [Mass/Vol] 14 mg/dL Normal 7-18 [facility] Comment on above: Performed By: #### C _ANA #### [address] [address] Calcium [Mass/Vol] 7.9 mg/dL Low 8.5-10.1 [facility] Comment on above: Performed By: #### C _ANA #### [facility] [address] [place], [place] [address] Chloride [Moles/Vol] 106 mmol/L Normal 98-107 [facility] Comment on above: Performed By: #### C _ANA #### [facility] [address] [place], [place] [address] Potassium [Moles/Vol] 4.0 mmol/L Normal 3.5-5.1 [facility] Comment on above: Performed By: #### C _ANA #### [facility] [address] [place], [place] [address] Sodium [Moles/Vol] 138 mmol/L Normal 136-145 [facility] Comment on above: Performed By: #### C _ANA #### [facility] [address] [place] [address] CASE MANAGEMon 08-29-2019 CASE MANAGEM HNO ID: [id number] Author: Tami SantiagoRn) KAVIN Patricio Service: Care Management Author Type: Registered Nurse Type: Care Mgt Progress Note Filed: 08/29/2019 11:27 AM Note Text: CARE MANAGEMENT PROGRESS NOTE SERVICE DATE: 08/29/2019 SERVICE TIME: 11:27 AM LOS: 8 days Chart reviewed. 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 Referral to [facility]- pt will need precert. Will follow clinical progress. SIGNATURE: Tami Patricio RN PATIENT NAME: Elizabeth Modi DATE: August 29, 2019 TIME: 11:27 AM PAGER/CONTACT #: [phone] [facility] CONSULT PROGon 08-29-2019 CONSULT PROG HNO ID: [id number] Author: Luke Briones (Gurwinder) Sailaja Service: Wound/Ostomy Author Type: Nurse Practitioner Type: Consult Progress Note Filed: 08/29/2019 3:36 PM Note Text: WOUND CARE CONSULT LASER SPECIALIST NOTE SERVICE DATE: 08/29/2019 SERVICE TIME: 14:45 TIME SPENT (minutes): 30 REASON FOR CONSULT: Reevaluation of right leg wounds and overall skin check. CHIEF COMPLAINT: Recent surgery to right leg with more coming on Monday Subjective HISTORY OF PRESENT ILLNESS: Mr. Modi is a 79 year old male who is seen today with Leila Goel, Wound/plant control aide, and presented to hospital with complaints of [...] heel and seat cushion. Will order patient [id number] mattress and turn and reposition every 2 hours or more often. A photo was taken of the patient's wound(s). Photos can be found under the Get Images tab on [employer]. Photos are uploaded by the wound healthcare associate and may not be immediately available for viewing. Contact the wound and ostomy care department with questions. SIGNATURE: Luke Menard APRN.GURWINDER,CWHARESHN PATIENT NAME: Elizabeth Modi DATE: August 29, 2019 TIME: 3:23 PM CONTACT#: [id number] [facility] CONSULT PROG HNO ID: [id number] Author: Doris Eden Service: Endocrinology Author Type: Physician Type: Consult Progress Note Filed: 08/29/2019 8:38 AM Note Text: ENDOCRINOLOGY CONSULT PROGRESS NOTE SERVICE DATE: 08/29/2019 SERVICE TIME: 8:25 AM Subjective INTERVAL HPI: Pt followed for diabetes mellitus type 2 with complications. Tr from [facility]; adm for right foot infection and gangrene; [...] 8:38 AM PAGER: [phone] Normal [facility] Hemogramon 08-29-2019 Erythrocyte distribution width (RBC) [Ratio] 14.1 % Normal 11.6-14.4 [facility] Comment on above: Performed By: #### F ERR #### [address] [address] Hematocrit (Bld) [Volume fraction] 27.5 % Low 40.1-51.0 [facility] Comment on above: Performed By: #### F ERR #### [address] [address] Hemoglobin (Bld) [Mass/Vol] 8.8 g/dL Low 13.7-17.5 [facility] Comment on above: Performed By: #### F ERR #### [address] [place], [place] [address] MCH (RBC) [Entitic mass] 29.0 pg Normal 25.7-32.2 [facility] Comment on above: Performed By: #### F ERR #### [facility] [address] [place], [place] [address] MCHC (RBC) [Mass/Vol] 32.0 % Low 32.3-36.5 [facility] Comment on above: Performed By: #### F ERR #### [facility] [address] [place], [place] [address] MCV (RBC) [Entitic vol] 90.8 fL Normal 83.2-95.6 [facility] Comment on above: Performed By: #### F ERR #### [facility] [address] [place], [place] [address] Nucleated RBC (Bld) [#/Vol] 0.02 thou/cmm High 0.00-0.01 [facility] Comment on above: Performed By: #### F ERR #### [facility] [address] [place], [place] [address] Nucleated RBC/100 WBC (Bld) [Ratio] 0.2 % Normal 0.0-0.2 [facility] Comment on above: Performed By: #### F ERR #### [facility] [address] [place], [place] [address] Platelet mean volume (Bld) [Entitic vol] 9.5 fL Normal 8.7-12.0 [facility] Comment on above: Performed By: #### F ERR #### [facility] [address] [place], [place] [address] Platelets (Bld) [#/Vol] 430 thou/cmm High 141-365 [facility] Comment on above: Performed By: #### F ERR #### [facility] [address] [place], [place] [address] RBC (Bld) [#/Vol] 3.03 mil/cmm Low 4.63-6.08 [facility] Comment on above: Performed By: #### F ERR #### [address] [address] RDW SD 45.0 fl Normal 36.1-45.8 [facility] Comment on above: Performed By: #### F ERR #### [facility] [address] [place], [place] [address] WBC (Bld) [#/Vol] 10.45 thou/cmm High 4.23-9.07 [facility] Comment on above: Performed By: #### F ERR #### [facility] [address] [place], [place] [address] Magnesium Bloodon 08-29-2019 Magnesium [Mass/Vol] 1.6 mg/dL Normal 1.6-2.6 [facility] Comment on above: Performed By: #### M AG #### [facility] [address] [place], [place] [address] PROGRESSon 08-29-2019 PROGRESS HNO ID: [id number] Author: Zack Jenkins Service: Hospital Medicine Author Type: Physician Type: Progress Notes Filed: 08/29/2019 5:59 PM Note Text: DEPARTMENT OF HOSPITAL MEDICINE PROGRESS NOTE SERVICE DATE: 08/29/2019 SERVICE TIME: 5:56 PM Hospital Medicine/Primary Attending: Zack Jenkins, DO NIGHT AND WEEKEND COVERAGE: After 7pm please page [phone] CHIEF COMPLAINT: no new complaints SUBJECTIVE: Pt [...] amputation -Angio 08/26 showing partial occlusion R [employer]ERING -Vascular and Ortho consults -Plan is for [...] Sub Q BID ? Disposition: Home with [facility] pending progress and surgery Plan of care discussed with: Provider, RN, Patient SIGNATURE: Zack Jenkins DO PATIENT NAME: Elizabeth Modi DATE: August 29, 2019 TIME: 5:56 PM PAGER/CONTACT #: Erasmo webber pager Disclaimer: Portions of this note may have been generated using Chobani voice recognition software. Reasonable efforts were made to correct any dictation errors that resulted due to the programming of this software but some may still be present. Normal [facility] PROGRESS HNO ID: [id number] Author: Tom Prescott DO Service: General Surgery [...] questions or concerns Mon-Mon 6a-5p please page [phone]. After 5pm and on Weekends and Holidays, [...] 0659 08/29/19 07 - 08/30/19 0659 Shift 6403-6619 0853-2974 5642-7195 24 Hour Total 5564-8720 7678-2563 7215-0612 24 Hour Total INTAKE Shift Total OUTPUT [...] able, out of bed to chair - [facility] - Further care per primary Assessment and plan discussed with attending Tom Prescott DO, MBA PGY-1 General Surgery Resident 08/29/2019 10:01 AM Pager below: Vascular AND Thoracic Surgery Service Pager: For questions or concerns Mon-Mon 6a-5p please page [phone]. After 5pm and on Weekends and Holidays, please page [phone] if in ICU or [phone] if on RNF. Normal [facility] THERAPY NTon 08-29-2019 THERAPY NT HNO ID: [id number] Author: Tanja (Reese Drummond Service: Physical Therapy Author Type: Physical Therapist Type: Therapy (PT/OT/Speech/Resp) Filed: 08/29/2019 3:21 PM Note Text: Physical Therapy Treatment SERVICE DATE: 08/29/2019 SERVICE TIME: 1138 to 1208 ROOM: [place] [address] Recommended Discharge Disposition: Acute Rehab Recommended Discharge [...] l;Muscle Weakness (generalized) Interventions Provided: Therapeutic Exercise (32517);Therapeutic Activity (89452) Therapeutic Exercise (31955) Treatment Minutes: 15 1 unit Skilled Intervention(s): [...] extremity general strengthening therapeutic exercise. Therapeutic Activity (72741) Treatment Minutes: 10 1 unit Skilled Intervention(s): [...] Environment Patient Lives With: Self/Alone Assistance Available: second time worker Entry To Home: Stairs;With Rail Number Of [...] 2019 TIME: 3:09 PM Normal [facility] Basic Panelon 08-28-2019 Creatinine [Mass/Vol] 0.91 mg/dL Normal 0.67-1.17 [facility] Comment on above: Result Comment: Use of this assay is not recommended for patients undergoing treatment with phenindione, due to the potential for falsely depressed results. Performed By: #### C _ANA #### [address] [address] Anion gap [Moles/Vol] 10 mmol/L Normal 8-16 [facility] Comment on above: Performed By: #### C _ANA #### [address] [address] CO2 [Moles/Vol] 27 mmol/L Normal 21-32 [facility] Comment on above: Performed By: #### C _ANA #### [facility] [address] [place], [place] [address] Urea nitrogen [Mass/Vol] 14 mg/dL Normal 7-18 [facility] Comment on above: Performed By: #### C _ANA #### [facility] [address] [place], [place] [address] Calcium [Mass/Vol] 7.5 mg/dL Low 8.5-10.1 [facility] Comment on above: Performed By: #### C _ANA #### [facility] [address] [place], [place] [address] Glucose [Mass/Vol] 108 mg/dL High 70-99 [facility] Comment on above: Performed By: #### C _ANA #### [address] [address] Chloride [Moles/Vol] 105 mmol/L Normal 98-107 [facility] Comment on above: Performed By: #### C _ANA #### [facility] [address] [place], [place] [address] Potassium [Moles/Vol] 4.1 mmol/L Normal 3.5-5.1 [facility] Comment on above: Performed By: #### C _ANA #### [facility] [address] [place], [place] [address] Sodium [Moles/Vol] 138 mmol/L Normal 136-145 [facility] Comment on above: Performed By: #### C _ANA #### [facility] [address] [place], [place] [address] CASE MANAGEMon 08-28-2019 CASE MANAGEM HNO ID: [id number] Author: Tami SantiagoRn) KAVIN Patricio Service: Care Management Author Type: Registered Nurse Type: Care Mgt Progress Note Filed: 08/28/2019 1:57 PM Note Text: CARE MANAGEMENT PROGRESS NOTE SERVICE DATE: 08/28/2019 SERVICE TIME: 1:56 PM LOS: 7 days Chart reviewed. 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 Referral to [facility]- pt will need precert. Will follow clinical progress. SIGNATURE: Tami Patricio RN PATIENT NAME: Elizabeth Modi DATE: August 28, 2019 TIME: 1:56 PM PAGER/CONTACT #: [phone] Normal [facility] CONSULT PROGon 08-28-2019 CONSULT PROG HNO ID: [id number] Author: Doris Eden Service: Endocrinology Author Type: Physician Type: Consult Progress Note Filed: 08/28/2019 8:31 AM Note Text: ENDOCRINOLOGY CONSULT PROGRESS NOTE SERVICE DATE: 08/28/2019 SERVICE TIME: 8:15 AM Subjective INTERVAL HPI: Pt followed for diabetes mellitus type 2 with complications. Tr from [facility]; adm for right foot infection and gangrene; [...] August 28, 2019 TIME: 8:31 AM PAGER: [phone] Normal [facility] Hemogram/Diffon 08-28-2019 Abs Immature Grans 0.21 thou/cmm High 0.00-0.05 [facility] Comment on above: Performed By: #### G LMET #### [facility] [address] [place] [address] Abs Neut (ANC) 7.25 thou/cmm High 1.78-5.38 [facility] Comment on above: Performed By: #### G LMET #### [facility] [address] [place], [place] [address] Abs. Baso 0.02 thou/cmm Normal 0.01-0.08 [facility] Comment on above: Performed By: #### G LMET #### [facility] [address] [place] [address] Abs. Norton 0.96 thou/cmm High 0.30-0.82 [facility] Comment on above: Performed By: #### G LMET #### [facility] [address] [place] [address] Basophils/100 WBC (Bld) 0.2 % Normal A [facility] Comment on above: Performed By: #### G LMET #### [facility] [address] [place] [address] Eosinophils (Bld) [#/Vol] 0.16 thou/cmm Normal 0.04-0. 54 [facility] Comment on above: Performed By: #### G LMET #### [facility] [address] [place] [address] Eosinophils/100 WBC (Bld) 1.5 % Normal [facility] Comment on above: Performed By: #### G LMET #### [facility] [address] [place] [address] Erythrocyte distribution width (RBC) [Ratio] 13.4 % Normal 11.6-14.4 [facility] Comment on above: Performed By: #### G LMET #### [facility] [address] [place] [address] Hematocrit (Bld) [Volume fraction] 29.8 % Low 40.1-51.0 [facility] Comment on above: Performed By: #### G LMET #### [facility] [address] [place] [address] Hemoglobin (Bld) [Mass/Vol] 9.5 g/dL Low 13.7-17.5 [facility] Comment on above: Performed By: #### G LMET #### [facility] [address] [place], [place] [address] Immature Grans 2.00 % Normal [facility] Comment on above: Performed By: #### G LMET #### [facility] [address] [place], [place] [address] Lymphocytes (Bld) [#/Vol] 1.82 thou/cmm Normal 0.84-2. 85 [facility] Comment on above: Performed By: #### G LMET #### [facility] [address] [place], [place] [address] Lymphocytes/100 WBC (Bld) 17.5 % Normal [facility] Comment on above: Performed By: #### G LMET #### [facility] [address] [place] [address] MCH (RBC) [Entitic mass] 28.4 pg Normal 25.7-32.2 [facility] Comment on above: Performed By: #### G LMET #### [place] [address] MCHC (RBC) [Mass/Vol] 31.9 % Low 32.3-36.5 [facility] Comment on above: Performed By: #### G LMET #### [place] [address] MCV (RBC) [Entitic vol] 89.2 fL Normal 83.2-95.6 [facility] Comment on above: Performed By: #### G LMET #### [place] [address] Monocytes/100 WBC (Bld) 9.2 % Normal [facility] Comment on above: Performed By: #### G LMET #### [facility] [address] [place], [place] [address] Platelet mean volume (Bld) [Entitic vol] 9.6 fL Normal 8.7-12.0 [facility] Comment on above: Performed By: #### G LMET #### [address] [address] Platelets (Bld) [#/Vol] 390 thou/cmm High 141-365 [facility] Comment on above: Performed By: #### G LMET #### [facility] [address] [place], [place] [address] RBC (Bld) [#/Vol] 3.34 mil/cmm Low 4.63-6.08 [facility] Comment on above: Performed By: #### G LMET #### [facility] [address] [place], [place] [address] RDW SD 43.3 fl Normal 36.1-45.8 [facility] Comment on above: Performed By: #### G LMET #### [facility] [address] [place] [address] Seg Neutrophil 69.6 % Normal [facility] Comment on above: Performed By: #### G LMET #### [facility] [address] [place], [place] [address] WBC (Bld) [#/Vol] 10.42 thou/cmm High 4.23-9.07 [facility] Comment on above: Performed By: #### G LMET #### [facility] [address] [place] [address] Magnesium Bloodon 08-28-2019 Magnesium [Mass/Vol] 1.1 mg/dL Low 1.6-2.6 [facility] Comment on above: Performed By: #### F ERR #### [facility] [address] [place] [address] NM CARDIAC PERF STRESS/PHARM on 08-28-2019 NM CARDIAC PERF STRESS/PHARM * * *Final Report* * * DATE OF EXAM: Aug 28 2019 9:30AM [facility] 0006 - NM CARDIAC PERF [...] later. See administered doses below. [facility] Date of service: 08/28/2019 9:30:00 AM [...] Final ------ Stress ECG Report: [facility] Date of service: 08/28/2019 9:30:00 AM Ordering physician: GOLD Estes Specialist: Tawana Larson Clinical Study Manager: Libertad Rose Stress ECG interpreting physician: Shira [...] for age. The double product achieved was [address]. Peak heart rate was 98 bpm and [...] index (CRI): 0.51 Rate Pressure Product (RPP): 49851 Reason for test termination: End of Protocol. [...] chest sx during test Final ------ Stress Scale Manager Report: [facility] Date of service: 08/28/2019 9:30:00 AM Supervising physician: Shira Zuleta MD PATIENT: Name: ELIZABETH MODI Age: 79 years Gender: M The supervising physician was present during the stress procedure. Final Homicide Investigator: RICHARD Transcribe Date/Time: Aug 28 2019 9:30A Dictated by : IGNACIA MENDEZ MD This examination was interpreted and the report reviewed and electronically signed by: IGNACIA MENDEZ MD on Aug 28 2019 3:54PM EST Normal [facility] NURSING PROGon 08-28-2019 NURSING PROG HNO ID: [id number] Author: Tawana SantiagoRn) KAVIN Larson Service: Cardiovascular Testing Author Type: Registered Nurse Type: Nursing Progress Note Filed: 08/28/2019 2:58 PM Note Text: Dr Zuleta notified of labs prior to testing.Lexiscan Nuclear Stress Test procedure explained. Patient verbalized understanding and test completed with post nuclear scan to follow. [facility] OPERATIVE NOon 08-28-2019 OPERATIVE NO HNO ID: [id number] Author: Jovanny Parmar Service: Vascular Surgery Author Type: Physician Type: Operative Report Filed: 08/29/2019 3:01 PM Note Text: [facility] - Operative Report ELIZABETH MODI : 1940 AGE: 79. SEX: M PATIENT TYPE: I HOSP SVC: INTM LOCATION: [facility] ATTENDING PHYSICIAN: Jovanny Parmar MD CSN NUMBER: [id number] DATE OF SURGERY/PROCEDURE: 08/27/2019 INCISION/PROCEDURE START TIME: 10:01 AM INCISION CLOSE/PROCEDURE END TIME: 10:55 AM PREOPERATIVE DIAGNOSIS: Gangrene. POSTOPERATIVE DIAGNOSIS: Gangrene. SURGEON: Jovanny Parmar MD IT PROGRAM MANAGER: Tom Prescott. SURGERY/PROCEDURE: Angiogram with bilateral [...] serially upsized using Seldinger technique through a 5-Estonian sheath and Omni Flush catheter. Aortogram was [...] Recovery in stable condition. Jovanny Parmar MD LM:[id number] /[id number] Normal [facility] PROGRESSon 08-28-2019 PROGRESS HNO ID: [id number] Author: Zack Jenkins Service: Hospital Medicine Author Type: Physician Type: Progress Notes Filed: 08/28/2019 6:10 PM Note Text: DEPARTMENT OF HOSPITAL MEDICINE PROGRESS NOTE SERVICE DATE: 08/28/2019 SERVICE TIME: 6:05 PM Hospital Medicine/Primary Attending: Zack Jenkins, DO NIGHT AND WEEKEND COVERAGE: After 7pm please page [phone] CHIEF COMPLAINT: No new complaints SUBJECTIVE: Pt [...] amputation -Angio 08/26 showing partial occlusion R [employer] -Vascular and Ortho consults -Plan is for [...] units Sub Q BID Disposition: Home with [facility] pending progress and surgery Plan of care discussed with: Provider, RN, Patient SIGNATURE: Zack Jenkins DO PATIENT NAME: Elizabeth Modi DATE: August 28, 2019 TIME: 6:05 PM PAGER/CONTACT #: Team color pager Disclaimer: Portions of this note may have been generated using Chobani voice recognition software. Reasonable efforts were made to correct any dictation errors that resulted due to the programming of this software but some may still be present. Normal [facility] [facility] PROGRESS HNO ID: [id number] Author: Lula Posada (Rt) Service: Radiology Author Type: Credit Administration Specialist Type: Progress Notes Filed: 08/28/2019 3:12 PM [...] No IV SITE: Inpatient - refer to [facility] documentation POST EXAM PIV STATUS: Left in for next appointment PROCEDURE TYPE: NM Stress: 12.2mCi [id number] was administered IV for Rest Imaging at 1250 by ms. 35.9 mCi [id number] was administered IV for Stress Imaging at 240 by ty. ADMINISTRATION TIME: 1250 PATIENT DISCHARGED TO: Patient taken to IP transport area for return to [facility]/ICU/ED. A Diagnostic radioactive procedure has taken place, with no further precautions necessary other than routine body substance precautions. More information regarding radiation safety can be found using this link: [email or web address] SIGNATURE: RT Albino PATIENT NAME: Elizabeth Modi DATE: August 28, 2019 TIME: 3:11 PM PAGER/CONTACT #: Mela [facility] PROGRESS HNO ID: [id number] Author: Francine Roberts Service: Vascular Surgery Author [...] questions or concerns Mon-Fri 6a-5p please page [phone]. 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 After 5pm and on Weekends and Holidays, please page [phone] if in ICU or [phone] if on RNF. Normal [facility] Phosphorus Bloodon 0 Phosphate [Mass/Vol] 3.3 mg/dL Normal 2.5-4.9 [facility] Comment on above: Performed By: #### P 8 #### [facility] [address] [place], [place] [address] THERAPY NTon 08-28-2019 THERAPY NT HNO ID: [id number] Author: Tanja (Pt) Hoda Service: Physical Therapy Author Type: Physical Therapist Type: Therapy (PT/OT/Speech/Resp) Filed: 08/28/2019 3:32 PM Note Text: PHYSICAL THERAPY MISSED VISIT SERVICE DATE: 08/28/2019 SERVICE TIME: 1529 to 1529 ROOM: [place] [address] Attempted Treatment. Patient not seen due to Test/Procedure(out of room for stress test). Will reattempt as able. SIGNATURE: Tanja Drummond PT PATIENT NAME: Elizabeth Modi DATE: August 28, 2019 TIME: 3:30 PM Normal [facility] THERAPY NT HNO ID: [id number] Author: An SantiagoOtr/Vickie Miller Service: Occupational Therapy Author Type: Occupational Therapist Type: Therapy (PT/OT/Speech/Resp) Filed: 08/28/2019 11:27 AM Note Text: Occupational Therapy Treatment SERVICE DATE: 08/28/2019 SERVICE TIME: 1026 to 1105 ROOM: [place] [address] Recommended Discharge Disposition: Acute Rehab Recommended Discharge [...] (ADL);General symptoms and signs-other Interventions Provided: Self Prison Management (26141) Self Prison Management (48717) Treatment Minutes: 39 3 units Skilled Intervention(s):Full [...] for surgery. 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 Past Medical History: thyroid, HTN, DM, [...] Environment Patient Lives With: Self/Alone Assistance Available: second time worker Entry To Home: Stairs;With Rail Number Of [...] ANES [place] 08-27-2019 ANES POST HNO ID: [id number] Author: Oanh Pugh Service: Anesthesiology Author Type: [...] 2019 TIME: 5:16 PM PAGER/CONTACT #: Normal [facility] ANES PREOPon 08-27-2019 ANES PREOP HNO ID: [id number] Author: Jesse Jimenez Service: Anesthesiology Author Type: Physician Type: Anesthesia PreOp Filed: 08/27/2019 11:01 AM Note Text: ANESTHESIOLOGY DAY OF SURGERY NOTE SERVICE DATE: 08/27/2019 SERVICE TIME: 11:00 AM : 1940 Procedure(s) (LRB): ANGIOGRAM EXTREMITY LOWER (Right) Surgeon(s): Jovanny Satnos (Res) DO Kenyon Estimated body mass index [...] cap(s) (COLACE) 100 mg ORAL BID PRN Ejnnifer (Res) Horattas - [MAR Hold due to [...] August 27, 2019 TIME: 11:00 AM CSN: [id number] [facility] BRIEF OP NOTon 08-27-2019 BRIEF OP NOT HNO ID: [id number] Author: Tom Prescott DO Service: General Surgery [...] BRIEF OPERATIVE / PROCEDURE NOTE LOG ID: [id number] SURGERY/PROCEDURE DATE: 08/27/2019 INCISION/PROCEDURE START TIME: 10:01 AM INCISION CLOSE/PROCEDURE END TIME: 10:55 AM SURGEON(S)/PROCEDURALI ST(S) AND IT PROGRAM MANAGER(S): Surgeon(s) and Role: * Jovanny Parmar - Primary * Tom Prescott DO - Resident - Assisting Manager Of Clinical: Lori Schmid SA SURGERY/PROCEDURE(S): Diagnostic bilatera lower extremity angiogram ANESTHESIA: Monitored Anesthesia Care FINDINGS: 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 ESTIMATED BLOOD LOSS: 5 mls SPECIMENS: None COMPLICATIONS: None PRE-OP/PRE-PROCEDURE DIAGNOSIS: Right lower extremity ischemia, wet gangreen POST-OP/POST-PROCEDURE DIAGNOSIS: Same as Preop SIGNATURE: Tom Prescott DO PATIENT NAME: Elizabeth Modi DATE: August 27, 2019 TIME: 11:08 AM PAGER/CONTACT #: Mela [facility] CONSULTon 08-27-2019 CONSULT HNO ID: [id number] Author: Gold Sullivan Service: Cardiovascular Medicine Author [...] 27, 2019 TIME: 3:27 PM PAGER/CONTACT #: [phone] [facility] CONSULT PROGon 08-27-2019 CONSULT PROG HNO ID: [id number] Author: Doris Eden Service: Endocrinology Author Type: Physician Type: Consult Progress Note Filed: 08/27/2019 8:02 AM Note Text: ENDOCRINOLOGY CONSULT PROGRESS NOTE SERVICE DATE: 08/27/2019 SERVICE TIME: 7:50 AM Subjective INTERVAL HPI: Pt followed for diabetes mellitus type 2 with complications. Tr from [facility]; adm for right foot infection and gangrene; [...] August 27, 2019 TIME: 8:02 AM PAGER: [phone] Normal [facility] IR ABDOMEN ANGIO W/ RUNOFFon 08-27-2019 IR ABDOMEN ANGIO W/ RUNOFF * * *Final Report* * * DATE OF EXAM: Aug 27 2019 11:22AM [facility] 0993 - IR ABDOMEN ANGIO W/ [...] Left reconstitution at the above-knee popliteal artery. Homicide Investigator: ONEL Transcribe Date/Time: Aug 29 2019 1:09P Dictated by : JOVANNY PARMAR MD This examination was interpreted and the report reviewed and electronically signed by: JOVANNY PARMAR MD on Aug 29 2019 1:12PM EST Normal [facility] NUTRITIONon 08-27-2019 NUTRITION HNO ID: [id number] Author: Carine Singh Service: Nutrition Therapy Author Type: Registered Dietitian Type: Nutrition Filed: 08/27/2019 3:14 PM Note Text: NUTRITION THERAPY PROGRESS NOTE SERVICE DATE: 08/27/2019 SERVICE TIME: 2:20 PM Nutrition Assessment: Recommended Malnutrition Diagnosis: Moderate Protein-Calorie Malnutrition (08/22/19 1436 : Keturah (Die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) Valery) Estimated kilocalorie needs: 7988-6479 Calorie Calculation Method: 30-35 kcals/kg Estimated protein [...] August 27, 2019 TIME: 2:20 PM PAGER: [phone] Normal [facility] PROGRESSon 08-27-2019 PROGRESS HNO ID: [id number] Author: Tom Prescott DO Service: General Surgery [...] questions or concerns Mon-Fri 6a-5p please page [phone]. After 5pm and on Weekends and Holidays, please page [phone] if in ICU or [phone] if on [...] - 08/27/19 0608/27/19699 - 08/28/19 0659 Shift 0896-7439 4436-6874 3460-2232 24 Hour Total 2855-6268 6117-0704 1080-6365 24 Hour Total INTAKE PO 30 30 [...] questions or concerns Mon-Mon 6a-5p please page [phone]. After 5pm and on Weekends and Holidays, please page [phone] if in ICU or [phone] if on RNF. Normal [facility] PROGRESS HNO ID: [id number] Author: Sue Bianchi Service: Hospital Medicine Author Type: Physician Type: Progress Notes Filed: 08/27/2019 7:27 AM Note Text: DEPARTMENT OF HOSPITAL MEDICINE PROGRESS NOTE SERVICE DATE: 08/27/2019 SERVICE TIME: 7:24 AM Hospital Medicine/Primary Attending: Sue Bianchi DO NIGHT AND WEEKEND COVERAGE: After 7pm, please call cross cover pager #[phone] Subjective INTERVAL HPI: Patient seen and examined. 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, [...] 08/21/191914 vte non-pharmacologic prophylaxis - none indicated (mi,il) 08/21/191914 activity - mobilize patient ([place], [place]) VTE Prophylaxis: VTE prophylaxis appropriate Disposition: Home with [facility] Plan of care discussed with: Provider, RN, Patient SIGNATURE: Sue Bianchi DO PATIENT NAME: Elizabeth Modi DATE: August 27, 2019 TIME:7:24 AM PAGER/CONTACT #: [phone] Normal [facility] THERAPY NTon 08-27-2019 THERAPY NT HNO ID: [id number] Author: Tanja (Pt) Hoda Service: Physical Therapy Author Type: Physical Therapist Type: Therapy (PT/OT/Speech/Resp) Filed: 08/27/2019 9:33 AM Note Text: PHYSICAL THERAPY MISSED VISIT SERVICE DATE: 08/27/2019 SERVICE TIME: 931 to 931 ROOM: [place] Attempted Treatment. Patient not seen due to Test/Procedure(at angiogram). Will follow. SIGNATURE: Tanja Drummond PT PATIENT NAME: Elizabeth Modi DATE: August 27, 2019 TIME: 9:33 AM Normal [facility] THERAPY NT HNO ID: [id number] Author: Maricarmen SantiagoOtr/Serene) Florentino Service: Occupational Therapy [...] 2019 TIME: 9:12 AM Normal [facility] Basic Panelon 08-26-2019 Creatinine [Mass/Vol] 0.86 mg/dL Normal 0.67-1.17 [facility] Comment on above: Result Comment: Use of this assay is not recommended for patients undergoing treatment with phenindione, due to the potential for falsely depressed results. Performed By: #### P 8 #### [place] [address] Anion gap [Moles/Vol] 12 mmol/L Normal 8-16 [facility] Comment on above: Performed By: #### P 8 #### [address] [address] CO2 [Moles/Vol] 25 mmol/L Normal 21-32 [facility] Comment on above: Performed By: #### P 8 #### [place] [address] Urea nitrogen [Mass/Vol] 18 mg/dL Normal 7-18 [facility] Comment on above: Performed By: #### P 8 #### [facility] [address] [place], [place] [address] Calcium [Mass/Vol] 7.8 mg/dL Low 8.5-10.1 [facility] Comment on above: Performed By: #### P 8 #### [facility] [address] [place], [place] [address] Glucose [Mass/Vol] 114 mg/dL High 70-99 [facility] Comment on above: Performed By: #### P 8 #### [facility] [address] [place], [place] [address] Chloride [Moles/Vol] 104 mmol/L Normal 98-107 [facility] Comment on above: Performed By: #### P 8 #### [facility] [address] [place], [place] [address] Potassium [Moles/Vol] 3.8 mmol/L Normal 3.5-5.1 [facility] Comment on above: Performed By: #### P 8 #### [facility] [address] [place], [place] [address] Sodium [Moles/Vol] 137 mmol/L Normal 136-145 [facility] Comment on above: Performed By: #### P 8 #### [facility] [address] [place], [place] [address] CASE MANAGEMon 08-26-2019 CASE MANAGEM HNO ID: [id number] Author: Christina Perez Service: Care Management Author Type: ? Type: Care Mgt Progress Note Filed: 08/26/2019 10:50 AM Note Text: CARE MANAGEMENT PROGRESS NOTE SERVICE DATE: 08/26/2019 SERVICE TIME: 1000 LOS: 5 days IMM Follow Up Copy Given: Yes Copy given to:: Patient Method: In Person SIGNATURE: Christina Perez PATIENT NAME: Elizabeth Modi DATE: August 26, 2019 TIME: 10:50 AM PAGER/CONTACT #: [phone] [facility] CASE MANAGEM HNO ID: [id number] Author: Tami Izquierdo) KAVIN Patricio Service: Care Management Author Type: Registered Nurse Type: Care Mgt Progress Note Filed: 08/26/2019 10:17 AM Note Text: CARE MANAGEMENT PROGRESS NOTE SERVICE DATE: 08/26/2019 SERVICE TIME: 10:15 AM LOS: 5 days Chart reviewed. Plan now is for arteriogram likely next week and then possibly bka v aka pending results. Vascular and Ortho follow. Referral to [facility] for AR. Will follow clinical progress. SIGNATURE: Tami Patricio RN PATIENT NAME: Elizabeth Modi DATE: August 26, 2019 TIME: 10:15 AM PAGER/CONTACT #: [phone] [facility] CONSULT PROGon 08-26-2019 CONSULT PROG HNO ID: [id number] Author: Doris Eden Service: Endocrinology Author Type: Physician Type: Consult Progress Note Filed: 08/26/2019 8:09 AM Note Text: ENDOCRINOLOGY CONSULT PROGRESS NOTE SERVICE DATE: 08/26/2019 SERVICE TIME: 8:00 AM Subjective INTERVAL HPI: Pt followed for diabetes mellitus type 2 with complications. Tr from [facility]; adm for right foot infection and gangrene; [...] 8:09 AM PAGER: [phone] Normal [facility] Hemogram/Diffon 08-26-2019 Abs Immature Grans 0.20 thou/cmm High 0.00-0.05 [facility] [employer] [facility] Comment on above: Performed By: #### M AG #### [place] [address] Abs Neut (ANC) 6.48 thou/cmm High 1.78-5.38 [facility] Comment on above: Performed By: #### M AG #### [place] [address] Abs. Baso 0.04 thou/cmm Normal 0.01-0.08 [facility] Comment on above: Performed By: #### M AG #### [place] [address] Abs. Norton 0.93 thou/cmm High 0.30-0.82 [facility] Comment on above: Performed By: #### M AG #### [place] [address] Basophils/100 WBC (Bld) 0.4 % Normal A [facility] Comment on above: Performed By: #### M AG #### [place] [address] Eosinophils (Bld) [#/Vol] 0.21 thou/cmm Normal 0.04-0. 54 [facility] Comment on above: Performed By: #### M AG #### [place] [address] Eosinophils/100 WBC (Bld) 2.1 % Normal [facility] Comment on above: Performed By: #### M AG #### [facility] [address] [place] [address] Erythrocyte distribution width (RBC) [Ratio] 13.3 % Normal 11.6-14.4 [facility] Comment on above: Performed By: #### M AG #### [facility] [address] [place] [address] Hematocrit (Bld) [Volume fraction] 32.3 % Low 40.1-51.0 [facility] Comment on above: Performed By: #### M AG #### [facility] [address] [place] [address] Hemoglobin (Bld) [Mass/Vol] 10.5 g/dL Low 13.7-17.5 [facility] Comment on above: Performed By: #### M AG #### [place] [address] Immature Grans 2.00 % Normal [facility] Comment on above: Performed By: #### M AG #### [place] [address] Lymphocytes (Bld) [#/Vol] 2.34 thou/cmm Normal 0.84-2. 85 [facility] Comment on above: Performed By: #### M AG #### [place] [address] Lymphocytes/100 WBC (Bld) 22.9 % Normal [facility] Comment on above: Performed By: #### M AG #### [facility] [address] [place] [address] MCH (RBC) [Entitic mass] 28.6 pg Normal 25.7-32.2 [facility] Comment on above: Performed By: #### M AG #### [facility] [address] [place] [address] MCHC (RBC) [Mass/Vol] 32.5 % Normal 32.3-36.5 [facility] Comment on above: Performed By: #### M AG #### [place] [address] MCV (RBC) [Entitic vol] 88.0 fL Normal 83.2-95.6 A [facility] Comment on above: Performed By: #### M AG #### [facility] [address] [place], [place] [address] Monocytes/100 WBC (Bld) 9.1 % Normal [facility] Comment on above: Performed By: #### M AG #### [facility] [address] [place], [place] [address] Platelet mean volume (Bld) [Entitic vol] 9.5 fL Normal 8.7-12.0 [facility] Comment on above: Performed By: #### M AG #### [facility] [address] [place], [place] [address] Platelets (Bld) [#/Vol] 474 thou/cmm High 141-365 [facility] Comment on above: Performed By: #### M AG #### [address] [address] RBC (Bld) [#/Vol] 3.67 mil/cmm Low 4.63-6.08 [facility] Comment on above: Performed By: #### M AG #### [facility] [address] [place], [place] [address] RDW SD 43.1 fl Normal 36.1-45.8 [facility] Comment on above: Performed By: #### M AG #### [facility] [address] [place], [place] [address] Seg Neutrophil 63.5 % Normal [facility] Comment on above: Performed By: #### M AG #### [facility] [address] [place], [place] [address] WBC (Bld) [#/Vol] 10.21 thou/cmm High 4.23-9.07 [facility] Comment on above: Performed By: #### M AG #### [facility] [address] [place], [place] [address] PROGRESSon 08-26-2019 PROGRESS HNO ID: [id number] Author: Sue Bianchi Service: Hospital Medicine Author Type: Physician Type: Progress Notes Filed: 08/26/2019 1:35 PM Note Text: DEPARTMENT OF HOSPITAL MEDICINE PROGRESS NOTE SERVICE DATE: 08/26/2019 SERVICE TIME: 1:34 PM Hospital Medicine/Primary Attending: Sue Bianchi, DO NIGHT AND WEEKEND COVERAGE: After 7pm, please call cross cover pager #[phone] Subjective INTERVAL HPI: Patient seen and examined. 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, no focal motor or sensory deficits noted, speech normal Psych- A ANDO x 3, mood normal Skin- R lower extremity dressing intact, wound care notes and images reviewed Lines, Drains, and Airways Line Peripheral 08/21/19 8904 Assessment Left Antecubital 20 Gauge 4 days [...] 08/21/191914 vte non-pharmacologic prophylaxis - none indicated (mi,[place]) 08/21/191914 activity - mobilize patient (mi,il) VTE Prophylaxis: VTE prophylaxis appropriate Disposition: Home with [facility] Plan of care discussed with: Provider, RN, Patient SIGNATURE: Sue Bianchi DO PATIENT NAME: Elizabeth Modi DATE: August 26, 2019 TIME:1:34 PM PAGER/CONTACT #: [phone] [facility] PROGRESS HNO ID: [id number] Author: Tom Prescott DO Service: General Surgery [...] questions or concerns Mon-Mon 6a-5p please page [phone]. After 5pm and on Weekends and Holidays, [...] [phone] if on RNF. Normal [facility] THERAPY NTon 08-26-2019 THERAPY NT HNO ID: [id number] Author: Maricarmen Ochoar/Vickie Good Service: Occupational Therapy Author Type: Occupational Therapist Type: Therapy (PT/OT/Speech/Resp) Filed: 08/26/2019 11:15 AM Note Text: Occupational Therapy Treatment SERVICE DATE: 08/26/2019 SERVICE TIME: 919 to 944 ROOM: [id number] Recommended Discharge Disposition: Acute Rehab Justification [...] (ADL);General symptoms and signs-other Interventions Provided: Self Prison Management (68549);Therapeutic Exercise (21778) Therapeutic Exercise (59934) Treatment Minutes: 10 1 unit Skilled Intervention(s): [...] to patient shrugging shoulders during activity. 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 Pt reported no pain and was agreeable to therapy. 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: second time worker Entry To Home: Stairs;With Rail Number Of [...] CONSULT PROGon 08-25-2019 CONSULT PROG HNO ID: [id number] Author: Doris Eden Service: Endocrinology Author Type: Physician Type: Consult Progress Note Filed: 08/25/2019 9:29 AM Note Text: ENDOCRINOLOGY CONSULT PROGRESS NOTE SERVICE DATE: 08/25/2019 SERVICE TIME: 9:10 AM Subjective INTERVAL HPI: Pt followed for diabetes mellitus type 2 with complications. 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 Pt tolerated well with no pain. Stump with blood clots and vitalized tissue. No evidence of infection. Francine Roberts MD General Surgery, PGY-3 August 25, 2019 8:11 AM Normal [facility] PROGRESSon 08-25-2019 PROGRESS HNO ID: [id number] Author: Sue Bianchi Service: Hospital Medicine Author Type: Physician Type: Progress Notes Filed: 08/25/2019 4:34 PM Note Text: DEPARTMENT OF HOSPITAL MEDICINE PROGRESS NOTE SERVICE DATE: 08/25/2019 SERVICE TIME: 1:10 PM Hospital Medicine/Primary Attending: Sue Bianchi, DO NIGHT AND WEEKEND COVERAGE: After 7pm, please call cross cover pager #[phone] Subjective INTERVAL HPI: Patient seen and examined. 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 After 5pm and on Weekends and Holidays, please page [phone] if in ICU or [phone] if on RNF. Subjective SUBJECTIVE: Denies leg [...] Date 08/24/19699 - 08/25/1965808/25/19699 - 08/26/1958 Shift 8570-7841 9841-0924 4138-8955 24 Hour Total 0168-5886 2655-2613 1439-1474 24 Hour Total INTAKE Shift Total OUTPUT [...] questions or concerns Mon-Fri 6a-5p please page [phone]. After 5pm and on Weekends and Holidays, please page [phone] if in ICU or [phone] if on RNF. Normal [facility] Basic Panelon 08-24-2019 Creatinine [Mass/Vol] 0.76 mg/dL Normal 0.67-1.17 [facility] Comment on above: Result Comment: Use of this assay is not recommended for patients undergoing treatment with phenindione, due to the potential for falsely depressed results. Performed By: #### G LMET #### [facility] [address] [place], [place] [address] Anion gap [Moles/Vol] 10 mmol/L Normal 8-16 [facility] Comment on above: Performed By: #### G LMET #### [facility] [address] [place], [place] [address] CO2 [Moles/Vol] 20 mmol/L Low 21-32 [facility] Comment on above: Performed By: #### G LMET #### [facility] [address] [place], [place] [address] Glucose [Mass/Vol] 107 mg/dL High 70-99 [facility] Comment on above: Performed By: #### G LMET #### [facility] [address] [place], [place] [address] Urea nitrogen [Mass/Vol] 12 mg/dL Normal 7-18 [facility] Comment on above: Performed By: #### G LMET #### [facility] [address] [place], [place] [address] Calcium [Mass/Vol] 7.9 mg/dL Low 8.5-10.1 [facility] Comment on above: Performed By: #### G LMET #### [facility] [address] [place], [place] [address] Chloride [Moles/Vol] 105 mmol/L Normal 98-107 [facility] Comment on above: Performed By: #### G LMET #### [facility] [address] [place], [place] [address] Potassium [Moles/Vol] 4.4 mmol/L Normal 3.5-5.1 [facility] Comment on above: Performed By: #### G LMET #### [facility] [address] [place], [place] [address] Sodium [Moles/Vol] 131 mmol/L Low 136-145 [facility] Comment on above: Performed By: #### G LMET #### [facility] [address] [place] [address] CONSULT PROGon 08-24-2019 CONSULT PROG HNO ID: [id number] Author: Hermila Gallegos Service: Endocrinology Author Type: [...] August 24, 2019 TIME: 3:12 PM PAGER: [phone] Normal [facility] CONSULT PROG HNO ID: [id number] Author: Martha Ryan (Pharmacist) Service: Pharmacy Author [...] pharmacy if questions. MARTHA RYAN, PHARMACIST Ext: [phone] Normal [facility] Hemogram/Diffon 08-24-2019 Abs Immature Grans 0.19 thou/cmm High 0.00-0.05 [facility] Comment on above: Performed By: #### M AG #### [place] [address] Abs Neut (ANC) 6.15 thou/cmm High 1.78-5.38 [facility] [facility] Comment on above: Performed By: #### M AG #### [place] [address] Abs. Baso 0.04 thou/cmm Normal 0.01-0.08 [facility] Comment on above: Result Comment: Smea r scanned; tech agrees with automated differential Performed By: #### M AG #### [place] [address] Abs. Norton 0.75 thou/cmm Normal 0.30-0.82 [facility] Comment on above: Performed By: #### M AG #### [place] [address] Basophils/100 WBC (Bld) 0.4 % Normal A [facility] Comment on above: Performed By: #### M AG #### [place] [address] Eosinophils (Bld) [#/Vol] 0.20 thou/cmm Normal 0.04-0. 54 [facility] Comment on above: Performed By: #### M AG #### [place] [address] Eosinophils/100 WBC (Bld) 2.2 % Normal [facility] Comment on above: Performed By: #### M AG #### [facility] [address] [place], [place] [address] Immature Grans 2.10 % Normal [facility] Comment on above: Performed By: #### M AG #### [facility] [address] [place] [address] Lymphocytes (Bld) [#/Vol] 1.86 thou/cmm Normal 0.84-2. 85 [facility] Comment on above: Performed By: #### M AG #### [facility] [address] [place] [address] Lymphocytes/100 WBC (Bld) 20.2 % Normal [facility] Comment on above: Performed By: #### M AG #### [facility] [address] [place] [address] Monocytes/100 WBC (Bld) 8.2 % Normal [facility] Comment on above: Performed By: #### M AG #### [facility] [address] [place] [address] Seg Neutrophil 66.9 % Normal [facility] Comment on above: Performed By: #### M AG #### [facility] [address] [place] [address] Erythrocyte distribution width (RBC) [Ratio] 13.3 % Normal 11.6-14.4 [facility] Comment on above: Performed By: #### M AG #### [facility] [address] [place] [address] Hematocrit (Bld) [Volume fraction] 36.9 % Low 40.1-51.0 [facility] Comment on above: Performed By: #### M AG #### [facility] [address] [place] [address] Hemoglobin (Bld) [Mass/Vol] 11.7 g/dL Low 13.7-17.5 [facility] Comment on above: Performed By: #### M AG #### [facility] [address] [place] [address] MCH (RBC) [Entitic mass] 28.1 pg Normal 25.7-32.2 [facility] Comment on above: Performed By: #### M AG #### [facility] [address] [place] [address] MCHC (RBC) [Mass/Vol] 31.7 % Low 32.3-36.5 [facility] Comment on above: Performed By: #### M AG #### [facility] [address] [place] [address] MCV (RBC) [Entitic vol] 88.7 fL Normal 83.2-95.6 [facility] Comment on above: Performed By: #### M AG #### [facility] [address] [place] [address] Platelet mean volume (Bld) [Entitic vol] 9.5 fL Normal 8.7-12.0 [facility] Comment on above: Performed By: #### M AG #### [facility] [address] [place] [address] Platelets (Bld) [#/Vol] 428 thou/cmm High 141-365 [facility] Comment on above: Performed By: #### M AG #### [facility] [address] [place] [address] RBC (Bld) [#/Vol] 4.16 mil/cmm Low 4.63-6.08 [facility] Comment on above: Performed By: #### M AG #### [facility] [address] [place] [address] RDW SD 43.4 fl Normal 36.1-45.8 [facility] Comment on above: Performed By: #### M AG #### [facility] [address] [place] [address] WBC (Bld) [#/Vol] 9.20 thou/cmm High 4.23-9.07 [facility] Comment on above: Performed By: #### M AG #### [facility] [address] [place] [address] Magnesium Bloodon 08-24-2019 Magnesium [Mass/Vol] 2.4 mg/dL Normal 1.6-2.6 [facility] Comment on above: Performed By: #### M AG #### [facility] [address] [place] [id number] PROGRESSon 08-24-2019 PROGRESS HNO ID: [id number] Author: Sue Bianchi Service: Hospital Medicine Author Type: Physician Type: Progress Notes Filed: 08/24/2019 5:16 PM Note Text: DEPARTMENT OF HOSPITAL MEDICINE PROGRESS NOTE SERVICE DATE: 08/24/2019 SERVICE TIME: 12:40 PM Hospital Medicine/Primary Attending: Sue Bianchi, DO NIGHT AND WEEKEND COVERAGE: After 7pm, please call cross cover pager #[phone] Subjective INTERVAL HPI: Patient seen and examined. 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, [...] 08/21/191914 vte non-pharmacologic prophylaxis - none indicated (mi,il) 08/21/191914 activity - mobilize patient ([place], [place]) VTE Prophylaxis: VTE prophylaxis appropriate Disposition: Home with [facility] Plan of care discussed with: Provider, RN, Patient SIGNATURE: Sue Bianchi DO PATIENT NAME: Elizabeth Modi DATE: August 24, 2019 TIME:12:40 PM PAGER/CONTACT #: [phone] [facility] PROGRESS HNO ID: [id number] Author: Edy Paredes Service: Infectious Disease Author Type: Physician Type: Progress Notes Filed: 08/24/2019 9:20 AM Note Text: Edy Paredes MD, MS, FACP, [facility] Division of Infectious Diseses [address] [place] [address] Office: [phone] INFECTIOUS DISEASE CONSULT PROGRESS NOTE SERVICE DATE: [...] Edy Paredes MD, MS, FACP, [facility] PATIENT NAME: Elizabeth Modi DATE: August 24, 2019 TIME: 9:16 AM PAGER/CONTACT #: [phone] [facility] PROGRESS HNO ID: [id number] Author: Francine Roberts Service: Vascular Surgery Author [...] questions or concerns Mon-Fri 6a-5p please page [phone]. After 5pm and on Weekends and Holidays, please page [phone] if in ICU or [phone] if on RNF. Subjective SUBJECTIVE: Denies leg [...] 0659 08/24/19 07 - 08/25/19 0659 Shift [phone] 5931-9506 5606-4397 24 Hour Total 3595-0620 0142-8734 2797-8645 24 Hour Total INTAKE IV 625 625 OR Crystalloid intake (mL) 250 250 Volume (mL) (lactated ringers infusion) 125 125 Volume (mL) (vancomycin iv piggyback 1.25 g in D5W 250 mL (VANCOCIN)) 250 250 Shift Total 625 625 OUTPUT Urine 681 084 1702 Void (ml) 334 773 9651 Blood 50 50 Estimated Blood loss 50 50 Shift Total 625 400 2681 Weight (kg) 85 85 85 85 85 [...] 3 g in NaCl 0.9% 100 mL MB+/ADD-[place] (UNASYN) 3 g INTRAVENOUS q 6 H [...] 2174 if on RNF. Normal [facility] Phosphorus Bloodon 0 Phosphate [Mass/Vol] 2.3 mg/dL Low 2.5-4.9 [facility] Comment on above: Performed By: #### G LMET #### [place] [address] THERAPY NTon 08-24-2019 THERAPY NT HNO ID: [id number] Author: Lizeth Cobos Service: Physical Therapy Author Type: Physical Therapist Type: Therapy (PT/OT/Speech/Resp) Filed: 08/24/2019 2:49 PM Note Text: Physical Therapy Evaluation SERVICE DATE: 08/24/2019 SERVICE TIME: 1325 to 1346 ROOM: [place] [address] Recommended Discharge Disposition: Acute Rehab Recommended Discharge [...] Weakness (generalized) Interventions Provided: Evaluation $ Evaluation-Low (03978) Billed Units: 1 unit History and examination [...] Environment Patient Lives With: Self/Alone Assistance Available: second time worker Entry To Home: Stairs;With Rail Number Of [...] 2019 TIME: 2:43 PM Normal [facility] THERAPY NT HNO ID: [id number] Author: Susan SantiagoOtr/Vickie Miner Service: Occupational Therapy Author Type: Occupational Therapist Type: Therapy (PT/OT/Speech/Resp) Filed: 08/24/2019 1:07 PM Note Text: Occupational Therapy Evaluation SERVICE DATE: 08/24/2019 SERVICE TIME: 1133 to 1208 ROOM: [id number] Recommended Discharge Disposition: Acute Rehab Justification For [...] (ADL);General symptoms and signs-other Interventions Provided: Evaluation;Self Prison Management (52251) $ Evaluation-Moderate (11693) Billed Units: 1 unit OT Evaluation Moderate [...] occupational performance: thyroid, HTN, DM, claudication Self Prison Management (00237) Treatment Minutes: 10 1 unit Skilled Intervention(s): [...] lower extremity. 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 Patient agreeable to therapy. I have no pain at all. Denies pain before/after transfers. 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: second time worker(dtr) Entry To Home: Stairs;With Rail(bilat rails) Number [...] 2019 TIME: 1:01 PM Normal [facility] ANES [place] 08-23-2019 ANES POST HNO ID: [id number] Author: Sj Huizar Service: Anesthesiology Author Type: [...] ANES PREOPon 08-23-2019 ANES PREOP HNO ID: [id number] Author: Sj Huizar Service: Anesthesiology Author Type: [...] Units SUBCUTANEOUS q 12 H Karyna Diego [employer] 5,000 Units at 08/22/19 0807 - [MAR Hold due to Transfer] aluminum-magnesium hydroxide-simethicone 200-200-20 mg/5 mL 30 mL (MAALOX,MYLANTA,MAG-AL PLUS) 30 mL ORAL DAILY PRN Mohammad F [employer] - [MAR Hold due to Transfer] ondansetron 4 mg tab(s) (ZOFRAN) 4 mg ORAL q 6 H PRN Mohammad [facility] [employer] Or - [MAR Hold due to Transfer] ondansetron (PF) 4 mg injection (ZOFRAN) 4 mg INTRAVENOUS q 6 H PRN Mohammad F [employer] - [MAR Hold due to Transfer] polyethylene glycol 3350 17 g packet (MIRALAX, GLYCOLAX) 17 g ORAL DAILY PRN Mohammad F [employer] - [MAR Hold due to Transfer] docusate sodium 100 mg cap(s) (COLACE) 100 mg ORAL BID PRN Mohammad F [employer] - [MAR Hold due to Transfer] magnesium hydroxide 400 mg/5 mL 30 mL (MOM) 30 mL ORAL DAILY PRN Mohammad [employer] - [MAR Hold due to Transfer] bisacodyl 10 mg suppository (DULCOLAX) 10 mg RECTAL DAILY PRN Mohammad F [employer] - [MAR Hold due to Transfer] acetaminophen 650 mg tab(s) (TYLENOL) 650 mg ORAL q 6 H PRN Mohammad [employer] - [MAR Hold due to Transfer] atorvastatin 40 mg tab(s) (LIPITOR) 40 mg ORAL DAILY Mohammad F [employer] 40 mg at 08/22/192009 - [MAR Hold due to Transfer] lisinopril 10 mg tab(s) (ZESTRIL, PRINIVIL) 10 mg ORAL DAILY Mohammad F [employer] 10 mg at 08/22/19 0807 - [MAR Hold due to Transfer] levothyroxine 25 mcg tab(s) (SYNTHROID) 25 mcg ORAL DAILY Mohammad F [employer] 25 mcg at 08/22/19 0600 - [MAR Hold due to Transfer] insulin lispro pen (rapid acting) (HumaLOG KWIKPEN) SUBCUTANEOUS w MEALS AND HS Mohammad F [employer] 1 Units at 08/22/192128 - [MAR Hold due to Transfer] dextrose 40 % 15 g 15 g ORAL PRN Mohammad F [employer] Or - [MAR Hold due to Transfer] glucagon 1 mg injection (GLUCAGEN) 1 mg INTRAMUSCULAR PRN Mohammad F [employer] Or - [MAR Hold due to Transfer] dextrose 50% in water 25 mL syringe 12.5 g INTRAVENOUS PRN Mohammad F [employer] - [MAR Hold due to Transfer] vancomycin iv piggyback 1.25 g in D5W 250 mL (VANCOCIN) 1.25 g INTRAVENOUS q 12 HR Mohammad F [employer] 250 mL/hr at 08/22/192009 1.25 g at 08/22/192009 - [MAR Hold due to Transfer] vancomycin dosing and monitoring per pharmacy OTHER As Directed Mohammad F [employer] - [MAR Hold due to Transfer] piperacillin-tazobacta m iv piggyback 3.375 g in dextrose (iso-osmotic) 50 mL (ZOSYN) 3.375 g INTRAVENOUS q 6 H Mohammad F [employer] 100 mL/hr at 08/23/19 0549 3.375 g at 08/23/19 0549 - [MAR Hold due to Transfer] clindamycin iv piggyback 600 mg in D5W 50 mL (CLEOCIN) 600 mg INTRAVENOUS q 6 H Mohammad F [employer] 100 mL/hr at 08/23/19 0549 600 mg [...] August 23, 2019 TIME: 8:32 AM CSN: [id number] [facility] BRIEF OP NOTon 08-23-2019 BRIEF OP NOT HNO ID: [id number] Author: Jennifer Crooks Service: General Surgery Author Type: Resident Type: Brief Op Note Filed: 08/23/2019 9:35 AM Note Text: Attestation signed by Gordo Figueroa at 08/23/2019 10:01 AM I was present for the entire procedure and performed the procedure with the assistance of the resident and the assistant professor of spanish BRIEF OP / PROCEDURE NOTE LOG ID: [id number] Surgery/Procedure Date: 08/23/2019 Incision/Procedure Start Time: 8:42 AM Incision Close/Procedure End Time: 9:04 AM Surgeon(s)/Procedurali st(s) and Clinical Study Manager(s): Surgeon(s) and Role: * Gordo Figueroa - [...] 2019 TIME: 9:29 AM PAGER/CONTACT #: Mela [facility] Basic Panelon 08-23-2019 Creatinine [Mass/Vol] 0.88 mg/dL Normal 0.67-1.17 [facility] Comment on above: Result Comment: Use of this assay is not recommended for patients undergoing treatment with phenindione, due to the potential for falsely depressed results. Performed By: #### P 8 #### [facility] [address] [place], [place] [address] Glucose [Mass/Vol] 96 mg/dL Normal 70-99 [facility] Comment on above: Performed By: #### P 8 #### [address] [address] Anion gap [Moles/Vol] 12 mmol/L Normal 8-16 [facility] Comment on above: Performed By: #### P 8 #### [address] [address] Calcium [Mass/Vol] 7.2 mg/dL Low 8.5-10.1 [facility] Comment on above: Performed By: #### P 8 #### [address] [address] CO2 [Moles/Vol] 22 mmol/L Normal 21-32 [facility] Comment on above: Performed By: #### P 8 #### [address] [address] Urea nitrogen [Mass/Vol] 15 mg/dL Normal 7-18 [facility] Comment on above: Performed By: #### P 8 #### [facility] [address] [place], [place] [address] Chloride [Moles/Vol] 103 mmol/L Normal 98-107 [facility] Comment on above: Performed By: #### P 8 #### [address] [address] Potassium [Moles/Vol] 3.8 mmol/L Normal 3.5-5.1 [facility] Comment on above: Performed By: #### P 8 #### [facility] [address] [place], [place] [address] Sodium [Moles/Vol] 133 mmol/L Low 136-145 [facility] Comment on above: Performed By: #### P 8 #### [facility] [address] [place], [place] [address] CASE MGT INIT ASSESon 2019 CASE MGT INIT ASSENRRIQUE HNO ID: [id number] Author: Tami (Rn) KAVIN Patricio Service: Care Management Author Type: Registered Nurse Type: Care Mgt Initial Assessment Filed: 08/23/2019 3:20 PM Note Text: CARE MANAGEMENT: ASSESSMENT AND DISCHARGE PLAN SERVICE DATE: August 23, 2019 SERVICE TIME: 3:18 PM PRIMARY CARE PHYSICIAN: No primary care provider on file. 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 Last discharge within 30 days: No Advance Directive: Current Advance Directive: None Feed Grinder Attempted to Assist with AD Completion: Yes [...] Mostly I feel financially burdened by my [id number] expenses for my prescription medication:: 0 - Agree Somewhat Risk Score: 0 Patient is categorized as: Low risk < 2 Are you interested in bedside delivery of your medications? No Is Patient Psychosocially Complex?: No ASSESSMENT AND PLAN: Medical Needs: Medical Needs: None Psychosocial Needs: Psychosocial Needs: None FREEDOM OF CHOICE EXPLAINED: [place] of Choice Given: Yes Level of Care Discussed: Inpatient Rehab Facility Financial Disclosure Provided: Yes Financial Disclosure Comments: ESR Provider List: (Pt refused list- would like [facility]. ) POTENTIAL TRANSITION PLANS Rehab Facility Spoke with pt at the bedside. Pt states that he lives at home alone indept [employer], but he states that his daughter Nina assists as needed. Pt states that he has a PCP in [place]. Pt is s/p right foot amp. Anticipate AR needs at d/c. Await PT/OT evals. Pt would like [facility] rehab- referral sent. Pt will need auth and likely transport at d/c. Will follow. SIGNATURE: Tami Patricio RN PATIENT NAME: Elizabeth Modi DATE: August 23, 2019 TIME: 3:18 PM PAGER/CONTACT #: [phone] [facility] CONSULTon 08-23-2019 CONSULT HNO ID: [id number] Author: Doris Eden Service: Endocrinology Author Type: Physician Type: Consults Filed: 08/23/2019 1:21 PM Note Text: I have reviewed the patient's medical record in detail. Consult note dictated. See orders for Lantus/oral agents. Can use OTC Novolin N at home. Doris Eden MD. Normal [facility] CONSULT HNO ID: [id number] Author: Doris Eden Service: Endocrinology Author Type: Physician Type: Consults Filed: 08/25/2019 9:16 AM Note Text: [facility] - Consultation PATIENT NAME: ELIZABETH MODI CSN: [id number] DATE OF : 1940 SEX/AGE: M/79 PATIENT TYPE: I HOSP SVC: [facility] LOCATION: [id number] DATE OF SERVICE: 08/23/2019 TIME OF SERVICE: 01:15 PM REFERRING PHYSICIAN: Dexter Chávez MD REASON FOR CONSULTATION: Uncontrolled diabetes. HISTORY OF PRESENT ILLNESS: The patient is a 79-year-old male, who was transferred from [facility] with gangrene off right foot toes. [...] Lantus 10. Doris Eden MD Endocrinology SM:shima /[id number] Normal [facility] CONSULT PROGon 08-23-2019 CONSULT PROG HNO ID: [id number] Author: Isac Navarro (Pharmacist) Service: Pharmacy Author [...] have any questions[place] [phone]. Age: [age] year old Allergies: ALLERGIES No [...] 22.0 ISAC NAVARRO, PHARMACIST Normal [facility] CONSULT PROG HNO ID: [id number] Author: Paulo Fleming Service: Infectious Disease Author [...] labs Paulo Fleming MD Infectious Disease [facility] Pager: [phone] August 23, 2019 Normal [facility] Hemogram/Diffon 08-23-2019 Abs Immature Grans 0.19 thou/cmm High 0.00-0.05 [facility] Comment on above: Performed By: #### M AG #### [place] [address] Abs Neut (ANC) 15.52 thou/cmm High 1.78-5.38 [facility] Comment on above: Performed By: #### M AG #### [place] [address] Abs. Baso 0.04 thou/cmm Normal 0.01-0.08 [facility] Comment on above: Result Comment: Smea r scanned; tech agrees with automated differential Performed By: #### M AG #### [place] [address] Abs. Norton 1.45 thou/cmm High 0.30-0.82 [facility] Comment on above: Performed By: #### M AG #### [place] [address] Basophils/100 WBC (Bld) 0.2 % Normal A [facility] Comment on above: Performed By: #### M AG #### [place] [address] Eosinophils (Bld) [#/Vol] 0.21 thou/cmm Normal 0.04-0. 54 [facility] Comment on above: Performed By: #### M AG #### [place] [address] Eosinophils/100 WBC (Bld) 1.1 % Normal [facility] Comment on above: Performed By: #### M AG #### [facility] [address] [place], [place] [address] Immature Grans 1.00 % Normal [facility] Comment on above: Performed By: #### M AG #### [facility] [address] [place] [address] Lymphocytes (Bld) [#/Vol] 1.39 thou/cmm Normal 0.84-2. 85 [facility] Comment on above: Performed By: #### M AG #### [facility] [address] [place] [address] Lymphocytes/100 WBC (Bld) 7.4 % Normal [facility] Comment on above: Performed By: #### M AG #### [facility] [address] [place] [address] Monocytes/100 WBC (Bld) 7.7 % Normal [facility] Comment on above: Performed By: #### M AG #### [facility] [address] [place] [address] Seg Neutrophil 82.6 % Normal [facility] Comment on above: Performed By: #### M AG #### [facility] [address] [place] [address] Erythrocyte distribution width (RBC) [Ratio] 13.2 % Normal 11.6-14.4 [facility] Comment on above: Performed By: #### M AG #### [facility] [address] [place] [address] Hematocrit (Bld) [Volume fraction] 31.0 % Low 40.1-51.0 [facility] Comment on above: Performed By: #### M AG #### [facility] [address] [place] [address] Hemoglobin (Bld) [Mass/Vol] 10.2 g/dL Low 13.7-17.5 [facility] Comment on above: Performed By: #### M AG #### [facility] [address] [place] [address] MCH (RBC) [Entitic mass] 28.7 pg Normal 25.7-32.2 [facility] Comment on above: Performed By: #### M AG #### [facility] [address] [place] [address] MCHC (RBC) [Mass/Vol] 32.9 % Normal 32.3-36.5 [facility] Comment on above: Performed By: #### M AG #### [facility] [address] [place] [address] MCV (RBC) [Entitic vol] 87.1 fL Normal 83.2-95.6 [facility] Comment on above: Performed By: #### M AG #### [facility] [address] [place] [address] Platelet mean volume (Bld) [Entitic vol] 9.6 fL Normal 8.7-12.0 [facility] Comment on above: Performed By: #### M AG #### [place] [address] Platelets (Bld) [#/Vol] 421 thou/cmm High 141-365 [facility] Comment on above: Performed By: #### M AG #### [place] [address] RBC (Bld) [#/Vol] 3.56 mil/cmm Low 4.63-6.08 [facility] Comment on above: Performed By: #### M AG #### [place] [address] RDW SD 42.0 fl Normal 36.1-45.8 [facility] Comment on above: Performed By: #### M AG #### [place] [address] WBC (Bld) [#/Vol] 18.79 thou/cmm High 4.23-9.07 [facility] Comment on above: Performed By: #### M AG #### [place] [address] Hgb A1con 08-23-2019 HbA1c (Bld) [Mass fraction] 9.8 % High 4.2-6.3 [facility] Comment on above: Result Comment: Meth od is National Glycohemoglobin Standardization Program (NGSP) compliant. Performed By: #### M AG #### [facility] [address] [place] [address] HbA1c (Bld) [Mass fraction] 235 mg/dl Normal [facility] Comment on above: Performed By: #### M AG #### [facility] [address] [place] [address] MRSA Screenon 08-23-2019 MRSA DNA ARIELLE+probe Ql (Unsp spec) Test performed at [facility] No MRSA detected. Normal [facility] Comment on above: Performed By: #### F ERR #### [place] [address] Magnesium Bloodon 08-23-2019 Magnesium [Mass/Vol] 0.9 mg/dL Critically low 1.6-2.6 [facility] Comment on above: Performed By: #### M AG #### [place] [address] NURSING PROGon 08-23-2019 NURSING PROG HNO ID: [id number] Author: Karl (Rn) KAVIN Russell Service: Nursing Author Type: Registered Nurse Type: Nursing Progress Note Filed: 08/23/2019 9:27 AM Note Text: Fall risk protocol initiated. Fall risk wrist band applied and yellow sock applied to left foot. SR up x2. Call light in reach. Urinal offered. Normal [facility] NURSING PROG HNO ID: [id number] Author: Marita SantiagoRn) KAVIN Aponte Service: Nursing Author Type: Registered Nurse Type: Nursing Progress Note Filed: 08/23/2019 8:09 AM Note Text: Tech here to take pt to presurgery unit . Pt showing no signs of distress voicing no complaints. Pt taken via cart to presurgery unit Normal [facility] NURSING PROG HNO ID: [id number] Author: Marita SantiagoRn) KAVIN Aponte Service: Nursing [...] here. Daughter states ubderstanding Normal [facility] NURSING PROG HNO ID: [id number] Author: Marita (Rn) KAVIN Aponte Service: Nursing Author Type: Registered Nurse Type: Nursing Progress Note Filed: 08/23/2019 8:11 AM Note Text: Dr. Figueroa into see pt. Dr. Figueroa informing pt that surgery has been moved up to this morning. Pt states understanding. Normal [facility] OPERATIVE NOon 08-23-2019 OPERATIVE NO HNO ID: [id number] Author: Gordo Figueroa Service: Vascular Surgery Author Type: Physician Type: Operative Report Filed: 08/23/2019 1:07 PM Note Text: [facility] - Operative Report ELIZABETH MODI : 1940 AGE: 79. SEX: M PATIENT TYPE: I HOSP [facility] [place] [facility] LOCATION: [facility] ATTENDING PHYSICIAN: Ara Singer M.D. CSN NUMBER: [id number] DATE OF SURGERY/PROCEDURE: 08/23/2019 INCISION/PROCEDURE START TIME: 8:42 AM INCISION CLOSE/PROCEDURE END TIME: 9:04 AM PREOPERATIVE DIAGNOSIS: Gangrenous changes of the right foot with gas in the subcutaneous tissues. POSTOPERATIVE DIAGNOSIS: Gangrenous changes of the right foot with gas in the subcutaneous tissues. SURGEON: Gordo Figueroa MD IT PROGRAM MANAGER: 1. Jennifer Crooks M.D. 2. Irvin Walker, assistant professor of spanish. SURGERY/PROCEDURE: Guillotine right above ankle/below-knee amputation. ANESTHESIA: [...] recovery area in stable condition. MD RAPHAEL LeyW:[id number] [facility] PROGRESSon 08-23-2019 PROGRESS HNO ID: [id number] Author: Sue Bianchi Service: Hospital Medicine Author Type: Physician Type: Progress Notes Filed: 08/23/2019 3:48 PM Note Text: DEPARTMENT OF HOSPITAL MEDICINE PROGRESS NOTE SERVICE DATE: 08/23/2019 SERVICE TIME: 12:20 PM Hospital Medicine/Primary Attending: Sue Bianchi, NIGHT AND WEEKEND COVERAGE: After 7pm, please call cross cover pager #[phone] Subjective INTERVAL HPI: Patient seen and examined. 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 After 5pm and on Weekends and Holidays, please page [phone] if in ICU or [phone] if on [...] - 08/23/1958 08/23/19699 - 08/24/19 0659 Shift 9301-7618 6272-0814 1502-6098 24 Hour Total 6325-8139 1970-4685 9111-2089 24 Hour Total INTAKE PO 240 240 PO 240 240 Shift Total 240 240 OUTPUT Urine 500 788 413 3135 Void (ml) 500 526 376 2163 Shift Total 500 842 566 3329 Weight (kg) 85 85 85 85 85 [...] degree (HCC) 08/22/2019 - Gangrene of foot ([facility]) 08/21/2019 - Diabetes (HCC) 08/21/2019 - HTN [...] and plan discussed with attending: Dr. Figueroa, pickling solution maker for Dr. Parmar SIGNATURE: Tom Prescott DO PATIENT NAME: Elizabeth Modi DATE: August 23, 2019 TIME: 8:02 AM Vascular AND Thoracic Surgery Service Pager: For questions or concerns Mon-Mon 6a-5p please page [phone]. After 5pm and on Weekends and Holidays, please page [phone] if in ICU or [phone] if on RNF. Normal [facility] PROGRESS HNO ID: [id number] Author: Cayetano (Cassia Zapata MD Service: Orthopaedic [...] 1410 [facility] PROGRESS HNO ID: [id number] Author: Tom Prescott DO Service: General Surgery [...] questions or concerns Mon-Mon 6a-5p please page [phone]. After 5pm and on Weekends and Holidays, please page [phone] if in ICU or [phone] if on RNF. Normal [facility] Phosphorus Bloodon 0 Phosphate [Mass/Vol] 2.1 mg/dL Low 2.5-4.9 [facility] Comment on above: Performed By: #### M AG #### [facility] [address] [place], [place] [address] Vancomycin,Randomon 08-23-19 20 INR Coag (Bld) [Relative time] 22.0 mg/L Normal [facility] Comment on above: Result Comment: Trou gh 10.0-20.0 mg/L Peak 18.0-40.0 mg/L Performed By: #### C _ANA #### [facility] [address] [place] [address] CONSULTon 08-22-2019 CONSULT HNO ID: [id number] Author: Paulo Fleming Service: Infectious Disease Author [...] no longer doing that Employment: work with [employer] CURRENT ANTIBIOTICS: Zosyn Clindamycin vancomycin Current other [...] TIME: 1:42 PM PAGER/CONTACT #: [phone] Normal [facility] CONSULT HNO ID: [id number] Author: Yadi Badillo Service: Orthopaedic Surgery Author Type: Physician Type: Consults Filed: 08/22/2019 6:41 PM Note Text: ORTHOPAEDIC SURGERY CONSULT Pt: ELIZABETH MODI Date of Consultation: 08/22/2019 Physician Consulted: Dr. Badillo Reason for Consultation: Necrotic foot HPI: 79 year old male presented to [facility] on 08/21/2019 with complaints of changes [...] 2019 Time: 6:32 PM Normal [facility] CONSULT HNO ID: [id number] Author: Ana Luisa Crooks Service: General Surgery [...] questions or concerns Mon-Fri 6a-5p please page [phone]. After 5pm and on Weekends and Holidays, please page [phone] if in ICU or [phone] if on RNF. Service date: 08/22/2019 Service time: 4:01 AM Reason for consult: foot wounds Nature of consult: routine Subjective HPI Mr. Modi is a 79 year old male with necrotic L foot. Patient reports that he has only noticed this over the last week. Initially presented to [facility] for this reason and was transferred to [facility] for care. Denies pain and states [...] [phone] if on RNF. Normal [facility] CONSULT PROGon 08-22-2019 CONSULT PROG HNO ID: [id number] Author: Adali Murry Service: Wound Care Team Author Type: Nurse Specialist Type: Consult Progress Note Filed: 08/22/2019 11:19 AM Note Text: WOUND CARE CONSULT LASER SPECIALIST NOTE SERVICE DATE: 08/22/2019 SERVICE TIME: 909 TIME SPENT (minutes): 30 REASON FOR CONSULT: Eval R foot necrosis/wound CHIEF COMPLAINT: c/o necrotic toes and tissue to R foot. Subjective HISTORY OF PRESENT ILLNESS: Mr. Modi is a 79 year old male who is seen today with Yolanda Jackman Wound/plant control aide, and presented to hospital with complaints of [...] found under the Get Images tab on [employer]. Photos are uploaded by the wound healthcare associate and may not be immediately available for viewing. Contact the wound and ostomy care department with questions. SIGNATURE: Adali Murry APRN.MANDATE RETAIL SERVICE MERCHANDISER PATIENT NAME: Elizabeth Modi DATE: August 22, 2019 TIME: 11:03 AM CONTACT#: [id number] [facility] CONSULT PROG HNO ID: [id number] Author: Jose Walton (Pharmacist) Service: Pharmacy Author [...] have any questions, please contact Pharmacy at [phone]. Age: [age] year old Allergies: ALLERGIES No [...] results found for: PEGGY Walton, Pharmacist Pager: [phone] Normal [facility] Comprehensive Panelon 2019 ALP [Catalytic activity/Vol] 107 U/L Normal 45-117 [facility] Comment on above: Performed By: #### C _ANA #### [address] [address] Bilirubin [Mass/Vol] 0.5 mg/dL Normal 0.2-1.0 [facility] Comment on above: Result Comment: Use of this assay is not recommended for patients undergoing treatment with eltrombopag due to the potential for falsely elevated results. Performed By: #### C _ANA #### [facility] [address] [place], [place] [address] Protein [Mass/Vol] 6.4 g/dL Normal 6.4-8.2 [facility] Comment on above: Performed By: #### C _ANA #### [facility] [address] [place], [place] [address] ALT [Catalytic activity/Vol] 73 U/L Normal 12-78 [facility] Comment on above: Performed By: #### C _ANA #### [facility] [address] [place], [place] [address] AST [Catalytic activity/Vol] 81 U/L High 15-37 [facility] Comment on above: Performed By: #### C _ANA #### [facility] [address] [place], [place] [address] Creatinine [Mass/Vol] 0.95 mg/dL Normal 0.67-1.17 [facility] Comment on above: Result Comment: Use of this assay is not recommended for patients undergoing treatment with phenindione, due to the potential for falsely depressed results. Performed By: #### C _ANA #### [facility] [address] [place], [place] [address] Albumin [Mass/Vol] 1.7 g/dL Low 3.4-5.0 [facility] Comment on above: Performed By: #### C _ANA #### [facility] [address] [place], [place] [address] Anion gap [Moles/Vol] 12 mmol/L Normal 8-16 [facility] Comment on above: Performed By: #### C _ANA #### [facility] [address] [place], [place] [address] Calcium [Mass/Vol] 7.1 mg/dL Low 8.5-10.1 [facility] Comment on above: Performed By: #### C _ANA #### [facility] [address] [place], [place] [address] CO2 [Moles/Vol] 21 mmol/L Normal 21-32 [facility] Comment on above: Performed By: #### C _ANA #### [facility] [address] [place], [place] [address] Glucose [Mass/Vol] 218 mg/dL High 70-99 [facility] Comment on above: Performed By: #### C _ANA #### [facility] [address] [place], [place] [address] Urea nitrogen [Mass/Vol] 31 mg/dL High 7-18 [facility] Comment on above: Performed By: #### C _ANA #### [facility] [address] [place] [address] Chloride [Moles/Vol] 104 mmol/L Normal 98-107 [facility] Comment on above: Performed By: #### C _ANA #### [facility] [address] [place] [address] Potassium [Moles/Vol] 4.1 mmol/L Normal 3.5-5.1 [facility] Comment on above: Performed By: #### C _ANA #### [facility] [address] [place] [address] Sodium [Moles/Vol] 133 mmol/L Low 136-145 [facility] Comment on above: Performed By: #### C _ANA #### [place] [address] Cult and Smr CAROLINE and AERon 0 08-22-2019 Cult and Smr CAROLINE and AER Test performed at [facility] Rare Mixed skin javier. Moderate Mixed anaerobic javier. No Bacteroides fragilis group isolated. No Clostridium perfringens isolated. Many Gram positive cocci No WBC seen Rare Squamous epithelial cells Normal [facility] Comment on above: Performed By: #### C _ANA #### [facility] [address] [place] [address] Ferritinon 08-22-2019 Ferritin [Mass/Vol] 1342.20 ng/mL High 26.00-3 88.0 0 [facility] Comment on above: Performed By: #### F ERR #### [facility] [address] [place] [address] Folateon 08-22-2019 Folate 3.80 ng/mL Normal 3.10-17.50 [facility] Comment on above: Performed By: #### P 8 #### [facility] [address] [place] [address] Hemogramon 08-22-2019 Erythrocyte distribution width (RBC) [Ratio] 13.2 % Normal 11.6-14.4 [facility] Comment on above: Performed By: #### F ERR #### [facility] [address] [place] [address] Hematocrit (Bld) [Volume fraction] 28.4 % Low 40.1-51.0 [facility] Comment on above: Performed By: #### F ERR #### [facility] [address] [place] [address] Hemoglobin (Bld) [Mass/Vol] 9.4 g/dL Low 13.7-17.5 [facility] Comment on above: Performed By: #### F ERR #### [facility] [address] [place] [address] MCH (RBC) [Entitic mass] 28.7 pg Normal 25.7-32.2 [facility] Comment on above: Performed By: #### F ERR #### [facility] [address] [place] [address] MCHC (RBC) [Mass/Vol] 33.1 % Normal 32.3-36.5 [facility] Comment on above: Performed By: #### F ERR #### [facility] [address] [place] [address] MCV (RBC) [Entitic vol] 86.9 fL Normal 83.2-95.6 [facility] Comment on above: Performed By: #### F ERR #### [facility] [address] [place] [address] Platelet mean volume (Bld) [Entitic vol] 9.7 fL Normal 8.7-12.0 [facility] Comment on above: Performed By: #### F ERR #### [facility] [address] [place] [address] Platelets (Bld) [#/Vol] 380 thou/cmm High 141-365 [facility] Comment on above: Performed By: #### F ERR #### [facility] [address] [place] [address] RBC (Bld) [#/Vol] 3.27 mil/cmm Low 4.63-6.08 [facility] Comment on above: Performed By: #### F ERR #### [facility] [address] [place], [place] [address] RDW SD 41.6 fl Normal 36.1-45.8 [facility] Comment on above: Performed By: #### F ERR #### [facility] [address] [place], [place] [address] WBC (Bld) [#/Vol] 19.76 thou/cmm High 4.23-9.07 [facility] Comment on above: Performed By: #### F ERR #### [facility] [address] [place] [address] Iron % Saturationon 08-22-19 20 Iron % Saturation 15 % Low 20-55 [facility] Comment on above: Performed By: #### M AG #### [place] [address] Iron Binding Cap. 150 ug/dL Low 250-450 [facility] Comment on above: Performed By: #### M AG #### [place] [id number] Iron Serum 23 ug/dL Low 65-175 [facility] Comment on above: Performed By: #### M AG #### [place] [address] MRI FOOT/TOES WO IVCON RTon 08-22-2019 MRI FOOT/TOES WO IVCON RT * * *Final Rep ort* * * DATE OF EXAM: Aug 22 2019 12:23PM [facility] 0195 - MRI FOOT/TOES WO IVCON RT [...] be reactive or related to early osteomyelitis. Homicide Investigator: ONEL Transcribe Date/Time: Aug 22 2019 12:47P Dictated by : PRISCILA RUELAS MD This examination was interpreted and the report reviewed and electronically signed by: PRISCILA RUELAS MD on Aug 22 2019 1:06PM EST Normal [facility] NURSING PROGon 08-22-2019 NURSING PROG HNO ID: [id number] Author: Marita (Rn) KAVIN Aponte Service: Nursing Author Type: Registered Nurse Type: Nursing Progress Note Filed: 08/22/2019 2:17 PM Note Text: Dr. Parmar into see pt. Pt to be scheduled for angiogram tomorrow. Pt states understanding of procedure Normal [facility] NUTRITIONon 08-22-2019 NUTRITION HNO ID: [id number] Author: Marisol Falcon RD Service: Nutrition Therapy [...] of fat/muscle stores;Patient/family self-report Estimated kilocalorie needs: 8054-0233 Calorie Calculation Method: 30-35 kcals/kg Estimated protein [...] [facility] PRO[facility]ESS[facility] 08-22-2019 PROGRESS HNO ID: [id number] Author: Sue Bianchi Service: Hospital Medicine Author Type: Physician Type: Progress Notes Filed: 08/22/2019 3:29 PM Note Text: DEPARTMENT OF HOSPITAL MEDICINE PROGRESS NOTE SERVICE DATE: 08/22/2019 SERVICE TIME: 2:32 PM Hospital Medicine/Primary Attending: Sue Bianchi, DO NIGHT AND WEEKEND COVERAGE: After 7pm, please call cross cover pager [phone] Subjective INTERVAL HPI: Patient seen and examined. 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, [...] 08/21/191914 vte non-pharmacologic prophylaxis - none indicated (mi,il) 08/21/191914 activity - mobilize patient ([place]) VTE Prophylaxis: VTE prophylaxis appropriate Disposition: Home with [facility] Plan of care discussed with: Provider, RN, Patient SIGNATURE: Sue Bianchi DO PATIENT NAME: Elizabeth Modi DATE: August 22, 2019 TIME: 2:32 PM PAGER/CONTACT #: [phone] Normal [facility] US ARTERIAL PVR LOWERon US ARTERIAL PVR LOWER * * *Final Report* * * DATE OF EXAM: Aug 22 2019 10:00AM A2U 1107 - US ARTERIAL PVR LOWER / PROCEDURE REASON: necrotic right foot * * * * Physician Interpretation * * * * Non-Invasive Vascular Laboratory [facility] Lower Extremity Arterial Physiology Study Bilateral/Complete [...] Interpreting physician: Ryan Allen MD Final RP Homicide Investigator: RICHARD Transcribe Date/Time: Aug 22 2019 9:04A Dictated by : RYAN ALLEN MD This examination was interpreted and the report reviewed and electronically signed by: RYAN ALLEN MD on Aug 22 2019 11:41AM EST Normal [facility] Vitamin B12on 08-22-2019 Cobalamin (Vitamin B12) [Mass/Vol] 944 pg/mL Normal 193-986 [facility] Comment on above: Performed By: #### P 8 #### [facility] [address] [place] [address] CONSULT PROGon 08-21-2019 CONSULT PROG HNO ID: [id number] Author: Rahat Lemus (Pharmacist) Service: Pharmacy Author Type: Pharmacist Type: Consult Progress Note Filed: 08/21/2019 9:20 PM Note Text: Renal Dose Monitoring 1. Estimated CrCl: 52 (calculated from previous lab reported from MD of 1.2 and using IBW) 2. Recommendations: Zosyn 3.375g Dose:No Change Frequency:Increase frequency to Q6H - Rationale: Patient CrCl is greater than 40 and being infused over 30 minutes Pharmacy [id number] [facility] CONSULT PROG HNO ID: [id number] Author: Rahat Lemus (Pharmacist) Service: Pharmacy Author [...] [place] any questions[place] [phone]. Age: [age] year old Allergies: ALLERGIES No [...] for: PEGGY LEMUS, PHARMACIST Normal [facility] HISTORY PHYSICALon 0 HISTORY PHYSICAL HNO ID: [id number] Author: Karyna Perez Service: Hospital Medicine Author [...] After 7pm, please call cross cover pager #[phone] Subjective CHIEF COMPLAINT / REASON FOR ADMISSION: Right foot gangrene HPI: This is a 79 year old male has a past medical history of DM (diabetes mellitus) (HCC), Dyslipidemia, HTN (hypertension), and Hypothyroidism. sent as a transfer from [facility] for blackish coloration of multiple toe [...] the right foot and was sent to [facility] for further evaluation.For this illness, patient's [...] this note may have been generated using [employer] voice recognition software. Reasonable efforts were made [...] After 7pm, please call cross cover pager #[phone] Subjective CHIEF COMPLAINT / REASON FOR ADMISSION: Right foot gangrene HPI: This is a 79 year old male has a past medical history of DM (diabetes mellitus) (HCC), Dyslipidemia, HTN (hypertension), and Hypothyroidism. sent as a transfer from [facility] for blackish coloration of multiple toe [...] the right foot and was sent to [facility] for further evaluation.For this illness, patient's [...] this note may have been generated using [employer] voice recognition software. Reasonable efforts were made [...] have any questions[place] [phone]. Age: [age] year old Allergies: ALLERGIES No [...] and being infused over 30 minutes Pharmacy [phone] Ana Luisa Crooks MD 08/22/2019 6:04 AM [...] questions or concerns Mon-Fri 6a-5p please page [phone]. After 5pm and on Weekends and Holidays, please page [phone] if in ICU or [phone] if on RNF. Service date: 08/22/2019 Service time: 4:01 AM Reason for consult: foot wounds Nature of consult: routine Subjective HPI Mr. Modi is a 79 year old male with necrotic L foot. Patient reports that he has only noticed this over the last week. Initially presented to [facility] for this reason and was transferred to [facility] for care. Denies pain and states [...] have any questions, please contact Pharmacy at [phone]. Age: [age] year old Allergies: ALLERGIES No [...] results found for: PEGGY Walton, Pharmacist Pager: [phone] Previous Version Adali Murry APRN.MANDATE RETAIL SERVICE MERCHANDISER 08/22/2019 11:19 AM Signed WOUND CARE CONSULT LASER SPECIALIST NOTE SERVICE DATE: 08/22/2019 SERVICE TIME: 09 TIME SPENT (minutes): 30 REASON FOR CONSULT: Eval R foot necrosis/wound CHIEF COMPLAINT: c/o necrotic toes and tissue to R foot. Subjective HISTORY OF PRESENT ILLNESS: Mr. Modi is a 79 year old male who is seen today with Yolanda Jackman Wound/plant control aide, and presented to hospital with complaints of [...] found under the Get Images tab on [facility]. Photos are uploaded by the wound healthcare associate and may not be immediately available for viewing. Contact the wound and ostomy care department with questions. SIGNATURE: Adali Murry APRN.MANDATE RETAIL SERVICE MERCHANDISER PATIENT NAME: Elizabeth Modi DATE: August 22, 2019 TIME: 11:03 AM CONTACT#: [id number] Yadi Badillo DPM 08/22/2019 6:41 PM Signed ORTHOPAEDIC SURGERY CONSULT Pt: ELIZABETH MODI Date of Consultation: 08/22/2019 Physician Consulted: Dr. Badillo Reason for Consultation: Necrotic foot HPI: 79 year old male presented to [facility] on 08/21/2019 with complaints of changes [...] no longer doing that Employment: work with [employer] CURRENT ANTIBIOTICS: Zosyn Clindamycin vancomycin Current other [...] of fat/muscle stores;Patient/family self-report Estimated kilocalorie needs: 2823-1455 Calorie Calculation Method: 30-35 kcals/kg Estimated protein [...] Inflammation: Hyperglycemia;Hypoalbu minemia;Imaging studies SIGNATURE: Kacie Marquez, Die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 PATIENT NAME: Elizabeth Modi DATE: August 22, 2019 TIME: 2:27 PM PAGER: [phone] Previous Version Sue Bianchi DO 08/22/2019 3:29 PM Signed [facility] MEDICINE PROGRESS NOTE SERVICE DATE: 08/22/2019 SERVICE TIME: 2:32 PM Hospital Medicine/Primary Attending: Sue Bianchi DO NIGHT AND WEEKEND COVERAGE: After 7pm, please call cross cover pager [phone] Subjective INTERVAL HPI: Patient seen and examined. 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, [...] 08/21/191914 vte non-pharmacologic prophylaxis - none indicated ([place]) 08/21/191914 activity - mobilize patient (mi,il) VTE Prophylaxis: VTE prophylaxis appropriate Disposition: Home with [facility] Plan of care discussed with: Provider, RN, Patient SIGNATURE: Sue Bianchi DO PATIENT NAME: Elizabeth Modi DATE: August 22, 2019 TIME: 2:32 PM PAGER/CONTACT #: [phone] Gordo Figueroa MD 08/23/2019 1:07 PM Signed [facility] - Operative Report ELIZABETH MODI : 1940 AGE: 79. SEX: M PATIENT TYPE: I HOSP SVC: ORCA LOCATION: [facility] ATTENDING PHYSICIAN: Ara Singer M.D. CSN NUMBER: [id number] DATE OF SURGERY/PROCEDURE: 08/23/2019 INCISION/PROCEDURE START TIME: 8:42 AM INCISION CLOSE/PROCEDURE END TIME: 9:04 AM PREOPERATIVE DIAGNOSIS: Gangrenous changes of the right foot with gas in the subcutaneous tissues. POSTOPERATIVE DIAGNOSIS: Gangrenous changes of the right foot with gas in the subcutaneous tissues. SURGEON: Gordo Figueroa MD IT PROGRAM MANAGER: 1. Jennifer Crooks M.D. 2. Irvin Walker, assistant professor of spanish. SURGERY/PROCEDURE: Guillotine right above ankle/below-knee amputation. ANESTHESIA: [...] area in stable condition. Gordo Figueroa MD DJW:[id number] /[id number] Previous Version Doris Eden MD 08/25/2019 9:16 AM Signed [facility] - Consultation PATIENT NAME: ELIZABETH MODI CSN: [id number] DATE OF : 1940 SEX/AGE: M/79 PATIENT TYPE: I HOSP [facility] [place] [facility] LOCATION: [id number] DATE OF SERVICE: 08/23/2019 TIME OF SERVICE: 01:15 PM REFERRING PHYSICIAN: Dexter Chávez MD REASON FOR CONSULTATION: Uncontrolled diabetes. HISTORY OF PRESENT ILLNESS: The patient is a 79-year-old male, who was transferred from [facility] with gangrene off right foot toes. [...] Lantus 10. Doris Eden MD Endocrinology SM:shima /[id number] Tom Prescott DO, DO 08/23/2019 1:43 AM [...] questions or concerns Mon-Fri 6a-5p please page [phone]. After 5pm and on Weekends and Holidays, [...] TIME: 6:27 AM PAGER/CONTACT #: [phone] Marita Apotne, KAVIN, RN 08/23/2019 8:[address] [...] Units SUBCUTANEOUS q 12 H [employer] [facility] [employer] 5,000 Units at 08/22/19 0807 - [MAR Hold due to Transfer] aluminum-magnesium hydroxide-simethicone 200-200-20 mg/5 mL 30 mL (MAALOX,MYLANTA,MAG-AL PLUS) 30 mL ORAL DAILY PRN [employer] - [MAR Hold due to Transfer] ondansetron 4 mg tab(s) (ZOFRAN) 4 mg ORAL q 6 H PRN [employer] Or - [MAR Hold due to Transfer] ondansetron (PF) 4 mg injection (ZOFRAN) 4 mg INTRAVENOUS q 6 H PRN [employer] - [MAR Hold due to Transfer] polyethylene glycol 3350 17 g packet (MIRALAX, GLYCOLAX) 17 g ORAL DAILY PRN [employer] - [MAR Hold due to Transfer] docusate sodium 100 mg cap(s) (COLACE) 100 mg ORAL BID PRN [employer] - [MAR Hold due to Transfer] magnesium hydroxide 400 mg/5 mL 30 mL (MOM) 30 mL ORAL DAILY PRN [employer] - [MAR Hold due to Transfer] bisacodyl 10 mg suppository (DULCOLAX) 10 mg RECTAL DAILY PRN [employer] - [MAR Hold due to Transfer] acetaminophen 650 mg tab(s) (TYLENOL) 650 mg ORAL q 6 H PRN [employer] - [MAR Hold due to Transfer] atorvastatin 40 mg tab(s) (LIPITOR) 40 mg ORAL DAILY [employer] 40 mg at 08/22/192009 - [MAR Hold due to Transfer] lisinopril 10 mg tab(s) (ZESTRIL, PRINIVIL) 10 mg ORAL DAILY [employer] 10 mg at 08/22/19 0807 - [MAR Hold due to Transfer] levothyroxine 25 mcg tab(s) (SYNTHROID) 25 mcg ORAL DAILY [employer] 25 mcg at 08/22/19 0600 - [MAR Hold due to Transfer] insulin lispro pen (rapid acting) (HumaLOG KWIKPEN) SUBCUTANEOUS w MEALS AND HS [employer] 1 Units at 08/22/192128 - [MAR Hold due to Transfer] dextrose 40 % 15 g 15 g ORAL PRN [employer] Or - [MAR Hold due to Transfer] glucagon 1 mg injection (GLUCAGEN) 1 mg INTRAMUSCULAR PRN [employer] Or - [MAR Hold due to Transfer] dextrose 50% in water 25 mL syringe 12.5 g INTRAVENOUS PRN [employer] - [MAR Hold due to Transfer] vancomycin iv piggyback 1.25 g in D5W 250 mL (VANCOCIN) 1.25 g INTRAVENOUS q 12 HR [employer] 250 mL/hr at 08/22/192009 1.25 g at 08/22/192009 - [MAR Hold due to Transfer] vancomycin dosing and monitoring per pharmacy OTHER As Directed Mohammad F [employer] - [MAR Hold due to Transfer] piperacillin-tazobacta m iv piggyback 3.375 g in dextrose (iso-osmotic) 50 mL (ZOSYN) 3.375 g INTRAVENOUS q 6 H Mohammad F [employer] 100 mL/hr at 08/23/19 0549 3.375 g at 08/23/19 0549 - [MAR Hold due to Transfer] clindamycin iv piggyback 600 mg in D5W 50 mL (CLEOCIN) 600 mg INTRAVENOUS q 6 H Mohammad F [employer] 100 mL/hr at 08/23/19 0549 600 mg [...] August 23, 2019 TIME: 8:32 AM CSN: [id number] Previous Version Tom Prescott DO, DO 08/23/2019 [...] questions or concerns Mon-Fri 6a-5p please page [phone]. After 5pm and on Weekends and Holidays, [...] 08/23/1958 08/23/19 07 - 08/24/19 0659 Shift 4354-9422 5046-9216 8377-4862 24 Hour Total 6106-1793 2277-9575 7206-4864 24 Hour Total INTAKE PO 240 240 PO 240 240 Shift Total 240 240 OUTPUT Urine 500 394 193 3449 Void (ml) 500 171 807 9675 Shift Total 500 307 567 2163 Weight (kg) 85 85 85 85 85 [...] foot. Plan: Foot wound examined with Dr. Figeuroa at bedside. WBC stable, on abx per ID, afebrile Vanc/zosyn/clinda PVRs reviewed Tentative plan was for angio today but given appearence of gas and fluid seen on IANDD performed by podiatry and erythema, patient was consented for amputation. MRI with OM in 2nd distal phalanx and 2-5 metatarsal head Assessment and plan discussed with attending: Dr. Figueroa, pickling solution maker for Dr. Parmar SIGNATURE: Tom Prescott DO [...] assistance of the resident and the assistant professor of spanish BRIEF OP / PROCEDURE NOTE LOG ID: [id number] Surgery/Procedure Date: 08/23/2019 Incision/Procedure Start Time: 8:42 AM Incision Close/Procedure End Time: 9:04 AM Surgeon(s)/Procedurali st(s) and Clinical Study Manager(s): Surgeon(s) and Role: * Gordo Figueroa - [...] After 7pm, please call cross cover pager #[phone] Subjective INTERVAL HPI: Patient seen and examined. 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, [...] 08/21/191914 vte non-pharmacologic prophylaxis - none indicated (mi,il) 08/21/191914 activity - mobilize patient ([place], [place]) VTE Prophylaxis: VTE prophylaxis appropriate Disposition: Home with [facility] Plan of care discussed with: Provider, RN, Patient SIGNATURE: Sue Bianchi DO PATIENT NAME: Elizabeth Modi DATE: August 23, 2019 TIME:12:20 PM PAGER/CONTACT #: [phone] Doris Eden MD 08/23/2019 1:21 PM Signed [...] Inpatient Needs Prior to Discharge: OT/PT Evaluation;Discharge Transportation;[facility] Facility;Precertificat ion MEDICAL: [facility] 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 Last discharge within 30 days: No Advance Directive: Current Advance Directive: None Feed Grinder Attempted to Assist with AD Completion: Yes [...] Mostly I feel financially burdened by my ngm-ca-[id number] expenses for my prescription medication:: 0 - Agree Somewhat Risk Score: 0 Patient is categorized as: Low risk < 2 Are you interested in bedside delivery of your medications? No Is Patient Psychosocially Complex?: No ASSESSMENT AND PLAN: Medical Needs: Medical Needs: None Psychosocial Needs: Psychosocial Needs: None FREEDOM OF CHOICE EXPLAINED: [place] of Choice Given: Yes Level of Care Discussed: Inpatient Rehab Facility Financial Disclosure Provided: Yes Financial Disclosure Comments: ESR Provider List: (Pt refused list- would like [facility]. ) POTENTIAL TRANSITION PLANS Rehab Facility Spoke with pt at the bedside. Pt states that he lives at home alone indept [employer] [employer], but he states that his daughter Nina assists as needed. Pt states that he has a PCP in [place]. Pt is s/p right foot amp. Anticipate AR needs at d/c. Await PT/OT evals. Pt would like [facility] rehab- referral sent. Pt will need auth and likely transport at d/c. Will follow. SIGNATURE: Tami Patricio RN PATIENT NAME: Elizabeth Modi DATE: August 23, 2019 TIME: 3:18 PM PAGER/CONTACT #: [phone] Paulo Fleming MD 08/23/2019 3:55 PM Addendum [...] labs Paulo Fleming MD Infectious Disease [facility] Pager: [phone] August 23, 2019 Previous Version KRISTIE CHEEK [...] have any questions, [place] [phone]. Age: [age] year old Allergies: ALLERGIES No [...] questions or concerns Mon-Fri 6a-5p please page [phone]. After 5pm and on Weekends and Holidays, please page [phone] if in ICU or [phone] if on RNF. Subjective SUBJECTIVE: Denies leg [...] 08/23/19699 - 08/24/1965808/24/19699 - 08/25/19 0659 Shift 8192-5456 0842-1743 7013-1500 24 Hour Total 9243-7596 8675-1253 0060-3161 24 Hour Total INTAKE IV 625 625 OR Crystalloid intake (mL) 250 250 Volume (mL) (lactated ringers infusion) 125 125 Volume (mL) (vancomycin iv piggyback 1.25 g in D5W 250 mL (VANCOCIN)) 250 250 Shift Total 625 625 OUTPUT Urine 293 053 3584 Void (ml) 761 732 4977 Blood 50 50 Estimated Blood loss 50 50 Shift Total 702 900 9865 Weight (kg) 85 85 85 85 85 [...] 3 g in NaCl 0.9% 100 mL MB+/ADD-[place] (UNASYN) 3 g INTRAVENOUS q 6 H [...] pharmacy if questions. MARTHA RYAN, PHARMACIST Ext: [phone] Edy Paredes MD 08/24/2019 9:20 AM Signed Edy Paredes MD, MS, FACP, [facility] Division of Infectious Dises[place] [address] [facility] [address] [id number] Office: [phone] INFECTIOUS DISEASE CONSULT PROGRESS NOTE SERVICE DATE: [...] After 7pm, please call cross cover pager #[phone] Subjective INTERVAL HPI: Patient seen and examined. 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, [...] 08/21/191914 vte non-pharmacologic prophylaxis - none indicated (mi,il) 08/21/191914 activity - mobilize patient ([place]) VTE Prophylaxis: VTE prophylaxis appropriate Disposition: Home with [facility] Plan of care discussed with: Provider, RN, Patient SIGNATURE: Sue Bianchi DO PATIENT NAME: Elizabeth Modi DATE: August 24, 2019 TIME:12:40 PM PAGER/CONTACT #: etx [phone] Susan Miner, OTR/L 08/24/2019 1:07 PM Signed Occupational Therapy Evaluation SERVICE DATE: 08/24/2019 SERVICE TIME: 1133 to 1208 ROOM: [place] [address] Recommended Discharge Disposition: Acute Rehab Justification For [...] (ADL);General symptoms and signs-other Interventions Provided: Evaluation;Self Prison Management (49372) $ Evaluation-Moderate (76181) Billed Units: 1 unit OT Evaluation Moderate [...] occupational performance: thyroid, HTN, DM, claudication Self Prison Management (40427) Treatment Minutes: 10 1 unit Skilled Intervention(s): [...] lower extremity. 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 Patient agreeable to (more content not included)... Normal [facility] No Panel Information [facility] Vital Signs Date Time Vital Sign Value Performing Clinician Facility 10-16-2024 07:59-0400 Body height 167.[address] Diana Salmeron MD Work Phone: [phone] [place] [address] 10-16-2024 07:59-0400 Body mass index (BMI) [Ratio] 29 kg/m2 Dr. Diana Salmeron MD Work Phone: [phone] [place] [address] 10-16-2024 07:59-0400 Body weight 81.[address] Diana Salmeron MD Work Phone: [phone] [address] 10-16-2024 07:59-0400 Diastolic blood pressure 74 mm[Hg] Dr. Diana Salmeron MD Work Phone: [facility] 10-16-2024 07:59-0400 Heart rate 64 /min Dr. Diana Salmeron MD Work Phone: [facility] 10-16-2024 07:59-0400 Respiratory rate 18 /min Dr. Diana Salmeron MD Work Phone: [facility] 10-16-2024 07:59-0400 Systolic blood pressure 131 mm[Hg] Dr. Diana Salmeron MD Work Phone: [facility] 10-16-2024 00:07-0400 Body temperature 97.8 [degF] Dr. Diana Salmeron MD Work Phone: [facility] 10-16-2024 00:07-0400 Diastolic blood pressure 76 mm[Hg] Dr. Diana Salmeron MD Work Phone: [facility] 10-16-2024 00:07-0400 Heart rate 68 /min Dr. Diana Salmeron MD Work Phone: [facility] 10-16-2024 00:07-0400 Respiratory rate 16 /min Dr. Diana Salmeron MD Work Phone: [facility] 10-16-2024 00:07-0400 SaO2% (BldA) [Mass fraction] 97 % Dr. Diana Salmeron MD Work Phone: [facility] 10-16-2024 00:07-0400 Systolic blood pressure 148 mm[Hg] Dr. Diana Salmeron MD Work Phone: [facility] 10-15-2024 17:47-0400 Body mass index (BMI) [Ratio] 29.9 kg/m2 Dr. Diana Salmeron MD Work Phone: [facility] 10-15-2024 17:47-0400 Body weight [address] Diana Salmeron MD Work Phone: [facility] 10-15-2024 16:00-0400 Body height 167.[address] Diana Salmeron MD Work Phone: [facility] 10-01-2024 13:22-0400 Body height 167.6 cm Nikolai Connor PA-C Work Phone: [facility] Comment on above: After amputations per patient. 10-01-2024 13:22-0400 Body temperature 97.3 [degF] Nikolai Connor PA-C Work Phone: [facility] 10-01-2024 13:22-0400 Diastolic blood pressure 82 mm[Hg] Nikolai Connor PA-C Work Phone: [facility] Comment on above: Mario notified of blood pressure- pat ient aware to let staff where he resides know of his blood pressure. 10-01-2024 13:22-0400 Heart rate 62 /min Nikolai Connor PA-C Work Phone: [facility] 10-01-2024 13:22-0400 Respiratory rate 14 /min Nikolai Connor PA-C Work Phone: [facility] 10-01-2024 13:22-0400 SaO2% (BldA) [Mass fraction] 97 % Nikolai Underwoodoney PA-C Work Phone: [facility] 10-01-2024 13:22-0400 Systolic blood pressure 182 mm[Hg] Nikolai Underwoodoney PA-C Work Phone: [facility] Comment on above: Mario notified of blood pressure- pat ient aware to let staff where he resides know of his blood pressure. 01-11-2023 12:58-0400 Body temperature 97.4 [degF] Dr. Dexter Reyes Work Phone: [facility] 01-11-2023 12:58-0400 Diastolic blood pressure 65 mm[Hg] Dr. Dexter Reyes Work Phone: [facility] 01-11-2023 12:58-0400 Heart rate 66 /min Dr. Dexter Reyes Work Phone: [facility] 01-11-2023 12:58-0400 Respiratory rate 17 /min Dr. Dexter Reyes Work Phone: [facility] 01-11-2023 12:58-0400 Systolic blood pressure 113 mm[Hg] Dr. Dexter Reyes Work Phone: [facility] 12-17-2022 12:00-0400 Body temperature 98.8 [degF] Dr. Dexter Reyes Work Phone: [facility] 12-17-2022 12:00-0400 Diastolic blood pressure 68 mm[Hg] Dr. Dexter Reyes Work Phone: [facility] 12-17-2022 12:00-0400 Heart rate 60 /min Dr. Dexter Reyes Work Phone: [facility] 12-17-2022 12:00-0400 Inhaled oxygen flow rate 2 L/min Dr. Dexter Reyes Work Phone: [facility] 12-17-2022 12:00-0400 Respiratory rate 18 /min Dr. Dexter Reyes Work Phone: [facility] 12-17-2022 12:00-0400 SaO2% (BldA) [Mass fraction] 95 % Dr. Dexter Reyes Work Phone: [facility] 12-17-2022 12:00-0400 Systolic blood pressure 147 mm[Hg] Dr. Dexter Reyes Work Phone: [facility] 12-17-2022 06:00-0400 Body mass index (BMI) [Ratio] 32.6 kg/m2 Dr. Dexter Reyes Work Phone: [facility] 12-17-2022 06:00-0400 Body weight 92.[address] Dexter Reyes Work Phone: [facility] 12-15-2022 20:05-0400 Inhaled oxygen concentration 4 % Dr. Dexter Reyes Work Phone: [facility] 12-15-2022 10:54-0400 Body height 167.[address] Dexter Reyes Work Phone: [facility] 09-01-2022 09:59-0400 Body temperature 97.7 [degF] Shana Delgado MD Work Phone: [facility] 09-01-2022 09:59-0400 Diastolic blood pressure 68 mm[Hg] Shana Delgado MD Work Phone: [facility] 09-01-2022 09:59-0400 Heart rate 66 /min Shana Delgado MD Work Phone: [facility] 09-01-2022 09:59-0400 Systolic blood pressure 135 mm[Hg] Shana Delgado MD Work Phone: [facility] 01-13-2022 13:09-0400 Heart rate 79 /min DR KARL BARRERA MD [facility] 01-13-2022 11:36-0400 Body temperature 97.88 [degF] DR KARL BARRERA MD [address] 01-13-2022 11:36-0400 Diastolic Blood Pressure NBP [address] KARL BARRERA MD [address] [place] [address] 01-13-2022 11:36-0400 Heart rate 79 /min DR KARL BARRERA MD [address] [place] [address] 01-13-2022 11:36-0400 Mean blood pressure 79 mm[Hg] DR KARL BARRERA MD [address] [place] [address] 01-13-2022 11:36-0400 Reason For Taking VItal Signs DR KARL BARRERA MD [address] [place] [address] 01-13-2022 11:36-0400 Respiratory rate 18 /min DR KARL BARRERA MD [address] [place] [address] 01-13-2022 11:36-0400 Systolic Blood Pressure NBP [address] KARL BARRERA MD [address] [place] [address] 01-13-2022 08:42-0400 Heart rate 81 /min DR KARL BARRERA MD [address] [place] [address] 01-13-2022 08:42-0400 Heart rate 82 /min DR KARL BARRERA MD [address] [place] [address] 01-13-2022 07:06-0400 Body temperature 97.52 [degF] DR KARL BARRERA MD [address] 01-13-2022 07:06-0400 Diastolic Blood Pressure NBP [address] KARL BARRERA MD [address] [place] [address] 01-13-2022 07:06-0400 Mean blood pressure 79 mm[Hg] DR KARL BARRERA MD [address] [place] [address] 01-13-2022 07:06-0400 Reason For Taking VItal Signs DR KARL BARRERA MD [address] [place] [address] 01-13-2022 07:06-0400 Respiratory rate 18 /min DR KARL BARRERA MD [address] [place] [address] 01-13-2022 07:06-0400 Systolic Blood Pressure NBP [address] KARL BARRERA MD [address] [place] [address] 01-13-2022 04:52-0400 Body temperature 97.7 [degF] DR KARL BARRERA MD [address] [place] [address] 01-13-2022 04:52-0400 Diastolic Blood Pressure NBP [address] KARL BARRERA MD [address] [place] [address] 01-13-2022 04:52-0400 Mean blood pressure 83 mm[Hg] DR KARL BARRERA MD [address] [place] [address] 01-13-2022 04:52-0400 Reason For Taking VItal Signs DR KARL BARRERA MD [address] [place] [address] 01-13-2022 04:52-0400 Respiratory rate 18 /min DR KARL BARRERA MD [address] 01-13-2022 04:52-0400 Systolic Blood Pressure NBP [address] KARL BARRERA MD [address] [place] [address] 01-12-2022 16:59-0400 Heart rate 71 /min DR KARL BARRERA MD [address] [place] [address] 01-12-2022 09:02-0400 Heart rate 71 /min DR KARL BARRERA MD [address] [place] [address] 01-11-2022 04:44-0400 Diastolic blood pressure 79 mm[Hg] DR KARL BARRERA MD [address] [place] [address] 01-11-2022 04:44-0400 Mean blood pressure 110 mm[Hg] DR KARL BARRERA MD [address] 01-11-2022 04:44-0400 Systolic blood pressure 171 mm[Hg] DR KARL BARRERA MD [address] [place] [address] 01-11-2022 04:02-0400 Diastolic blood pressure 71 mm[Hg] DR KARL BARRERA MD [address] [place] [address] 01-11-2022 04:02-0400 Mean blood pressure 105 mm[Hg] DR KARL BARRERA MD [address] [place] [address] 01-11-2022 04:02-0400 Systolic blood pressure 173 mm[Hg] DR KARL BARRERA MD [address] [place] [address] 01-10-2022 02:13-0400 Diastolic blood pressure 73 mm[Hg] DR KARL BARRERA MD [address] [place] [address] 01-10-2022 02:13-0400 Systolic blood pressure 179 mm[Hg] DR KARL BARRERA MD [address] [place] [address] 01-10-2022 01:27-0400 Signs/Symptoms Transfusion Reaction DR KARL BARRERA MD [address] [place] [address] 01-10-2022 01:27-0400 Transfusion Documentation Ended/Paper DR KARL BARRERA MD [address] [place] [address] 01-10-2022 00:56-0400 Signs/Symptoms Transfusion Reaction DR KARL BARRERA MD [address] [place] [address] 01-10-2022 00:27-0400 Heart rate 63 /min DR KARL BARRERA MD [address] [place] [address] 01-10-2022 00:11-0400 Signs/Symptoms Transfusion Reaction No DR KARL BARRERA MD [address] [place] [address] 01-10-2022 00:11-0400 Heart rate 64 /min DR KARL BARRERA MD [address] [place] [address] 01-09-2022 22:36-0400 Transfusion Documentation Started/Paper DR KARL BARRERA MD [address] [place] [address] 01-06-2022 09:26-0400 Diastolic blood pressure 45 mm[Hg] DR KARL BARRERA MD [address] [place] [address] 01-06-2022 09:26-0400 Mean blood pressure 64 mm[Hg] DR KARL BARRERA MD [address] [place] [address] 01-06-2022 09:26-0400 Systolic blood pressure 103 mm[Hg] DR KARL BARRERA MD [address] [place] [address] 01-06-2022 08:38-0400 Diastolic blood pressure 50 mm[Hg] DR KARL BARRERA MD [address] [place] [address] 01-06-2022 08:38-0400 Mean blood pressure 69 mm[Hg] DR KARL BARRERA MD [address] [place] [address] 01-06-2022 08:38-0400 Systolic blood pressure 107 mm[Hg] DR KARL BARRERA MD [address] [place] [address] 01-06-2022 07:40-0400 Diastolic blood pressure 45 mm[Hg] DR KARL BARRERA MD [address] [place] [address] 01-06-2022 07:40-0400 Mean blood pressure 66 mm[Hg] DR KARL BARRERA MD [address] [place] [address] 01-06-2022 07:40-0400 Systolic blood pressure 113 mm[Hg] DR KARL BARRERA MD [address] [place] [address] 01-05-2022 20:12-0400 SaO2% (BldA) [Mass fraction] 98.4 % DR KARL BARRERA MD [facility] 01-05-2022 18:47-0400 SaO2% (BldA) [Mass fraction] 97.6 % DR KARL BARRERA MD [facility] 01-05-2022 17:13-0400 SaO2% (BldA) [Mass fraction] 97.7 % DR KARL BARRERA MD [facility] 01-05-2022 12:30-0400 Body temperature 98.98 [degF] DR KARL BARRERA MD [address] [place] [address] 01-05-2022 12:25-0400 Body temperature 99 [degF] DR KARL BARRERA MD [address] [place] [address] 01-05-2022 12:20-0400 Body temperature 99.07 [degF] DR KARL BARRERA MD [address] [place] [address] 01-05-2022 12:20-0400 Body temperature 98.51 [degF] DR KARL BARRERA MD [address] [place] [address] 01-05-2022 12:15-0400 Body temperature 98.6 [degF] DR KARL BARRERA MD [address] [place] [address] 01-05-2022 12:10-0400 Body temperature 98.67 [degF] DR KARL BARRERA MD [address] 01-05-2022 11:54-0400 SaO2% (BldA) [Mass fraction] 98.2 % DR KARL BARRERA MD [facility] 01-05-2022 11:19-0400 SaO2% (BldA) [Mass fraction] 99.4 % DR KARL BARRERA MD [facility] 01-05-2022 10:44-0400 SaO2% (BldA) [Mass fraction] 99.4 % DR KARL BARRERA MD [facility] 01-03-2022 23:07-0400 Mean blood pressure 83 mm[Hg] DR KARL BARRERA MD [address] [place] [address] 01-03-2022 12:05-0400 Body height [address] KARL BARRERA MD [facility] 01-03-2022 12:05-0400 Body weight 81.[address] KARL BARRERA MD [facility] 01-03-2022 12:05-0400 Body weight 35.28 kg/m2 DR KARL BARRERA MD [facility] 01-03-2022 04:54-0400 Body weight 81.[address] KARL BARRERA MD [facility] 12-31-2021 03:38-0400 Heart rate 80 /min DR KARL BARRERA MD [facility] 12-30-2021 05:08-0400 Body weight 103.[address] KARL BARRERA MD [facility] 02-09-2021 12:00-0400 Diastolic blood pressure 53 mm[Hg] Ammy Vicente MD [facility] Phone: [facility] Work Phone: 02-09-2021 12:00-0400 Heart rate 51 /min Ammy Vicente MD Work Phone: [facility] Work Phone: 02-09-2021 12:00-0400 SaO2% (BldA) [Mass fraction] 91 % Ammy Vicente MD Work Phone: [facility] Work Phone: 02-09-2021 12:00-0400 Systolic blood pressure 110 mm[Hg] Ammy Vicente MD Work Phone: [facility] Work Phone: 02-09-2021 11:45-0400 Respiratory rate 16 /min Ammy Vicente MD Work Phone: [facility] Work Phone: 02-09-2021 10:58-0400 Body temperature 98.1 [degF] Ammy Vicente MD Work Phone: [facility] Work Phone: 02-09-2021 08:21-0400 Body height 142.2 cm Ammy Vicente MD Work Phone: [facility] Work Phone: 02-09-2021 08:21-0400 Body mass index (BMI) [Ratio] 36.77 kg/m2 Ammy Vicente MD Work Phone: [facility] [employer] [facility] Work Phone: 02-09-2021 08:21-0400 Body weight 74.39 kg Ammy Vicente MD Work Phone: [facility] Work Phone: Encounters Encounter Date Encounter Type Care Provider Facility Start: 04-23-2025 ambulatory Victor M matute OLS Facility:[facility] Start: 04-17-2025 End: 04-17-2025 ambulatory Diana Salmeron Facility:[facility] Start: 03-19-2025 ambulatory Efradha matute OLS Facility:[facility] Start: 02-24-2025 End: 02-24-2025 ambulatory Christina Whipple NP Facility:[facility] Start: 02-19-2025 ambulatory Efradha matute OLS Facility:[facility] Start: 02-11-2025 ambulatory Efradha matute OLS Facility:[facility] Start: 02-11-2025 Registered Referred Victor M Rojas MD [facility] Start: 02-04-2025 ambulatory Victor M matute OLS Facility:[facility] Start: 02-04-2025 Registered Referred Victor M Rojas MD [facility] Start: 01-28-2025 End: 01-28-[address] Victor M Rojas MD -[facility] Work Phone: Start: 01-28-2025 End: 01-28-[address] Diana Salmeron MD Work Phone: -[facility] Start: 01-28-2025 [facility] Start: 01-22-2025 ambulatory Victor M matute OLS Facility:[facility] Start: 01-22-2025 [facility] Start: 01-20-2025 [facility] Start: 01-20-2025 Registered Referred Victor M Rojas MD [facility] Start: 01-14-2025 End: 01-14-2025 ambulatory GAYLA CLINE Facility:[id number] Start: 01-14-2025 End: 01-14-2025 Patient encounter procedure Gayla Cline MD Work Phone: Urology Comment on above: Gross hematuria (Margarita dariel Dx); Left renal mass Start: 12-24-2024 End: 12-24-[address] Diana Salmeron MD Work Phone: [facility] Start: 12-24-2024 End: 12-24-2024 Patient encounter procedure Christina Whipple [facility] Work Phone: Start: 12-18-2024 ambulatory Victor M DAVID Facility:[facility] Start: 12-18-2024 Registered Referred Victor M Rojas MD [facility] Start: 12-03-2024 End: 12-03-[address] Diana Salmeron MD Work Phone: [facility] Start: 12-03-2024 End: 12-03-[address] Victor M Rojas MD [facility] Work Phone: Start: 11-20-2024 ambulatory Victor M DAVID Facility:[facility] Start: 11-20-2024 Registered Referred Victor M Rojas MD [facility] Start: 11-07-2024 End: 11-07-[address] Diana Salmeron MD Work Phone: [facility] Start: 11-07-2024 End: 11-07-2024 [facility] Start: 11-07-[facility]24 [facility] Start: 11-07-2024 End: 11-07-2024 ambulatory Christina DAVID Facility:[facility] Start: 10-23-2024 End: 10-23-[address] Diana Salmeron MD Work Phone: [facility] Work Phone: Start: 10-23-2024 End: 10-23-2024 Departed Referred Victor M Rojas MD [facility] Start: 10-23-2024 End: 10-23-2024 ambulatory Victor M DAVID Facility:[facility] Start: 10-16-2024 End: 10-16-2024 Patient encounter procedure Lauren GARLAND -[facility] Work Phone: Start: 10-16-2024 End: 10-16-2024 [facility] Start: 10-15-2024 End: 10-16-2024 Emergency department patient visit Dr. Diana Salmeron MD Work Phone: -Emergency Department Work Phone: Start: 10-04-2024 End: 12-04-2024 Follow-up encounter Nikolai Connor PA-C Work Phone: Urology Start: 10-01-2024 End: 10-04-2024 Telephone encounter Nikolai Connor PA-C Work Phone: Urology Start: 10-01-2024 End: 10-01-2024 ambulatory NIKOLAI CONNOR Facility:[facility] Start: 10-01-2024 End: 10-01-2024 Patient encounter procedure Nikolai GARLAND-Jamar Work Phone: Urology Comment on above: Gross hematuria (Margarita dariel Dx); Screening for genitourinary condition Start: 09-24-2024 End: 09-24-[address] Diana Salmeron MD Work Phone: [facility] Work Phone: Start: 09-24-2024 End: 09-24-[address] Victor M Rojas MD -[facility] Work Phone: Start: 09-18-2024 End: 09-18-[address] Diana Salmeron MD Work Phone: [facility] Work Phone: Start: 09-18-2024 End: 09-18-2024 Departed Referred Victor M Rojas MD -[facility] Start: 09-18-2024 Registered Referred Victor M Rojas MD -[facility] Start: 09-18-2024 End: 09-18-2024 ambulatory Victor M DAVID Facility:[facility] Start: 09-06-2024 End: 09-06-2024 Patient encounter procedure Kacie GARLAND -[facility] Work Phone: Start: 09-06-2024 End: 09-06-2024 ambulatory [facility] Facility:[facility] Start: 09-05-2024 End: 09-05-2024 ambulatory Christina Whipple [employer] Facility:[facility] Start: 09-05-2024 End: 09-05-2024 Patient encounter procedure Christina Whipple [employer]- -[facility] Work Phone: Start: 09-03-2024 End: 09-03-2024 ambulatory Christina Whipple [employer] Facility:[facility] Start: 09-03-2024 End: 09-03-2024 Patient encounter procedure Christina Whipple [employer]- -[facility] Work Phone: Start: 08-21-2024 End: 08-21-[address] Diana Salmeron MD Work Phone: [facility] Work Phone: Start: 08-21-2024 End: 08-21-2024 Departed Referred Victor M Rojas MD [facility] Start: 08-21-2024 End: 08-21-2024 [facility] Start: 08-01-2024 ambulatory [facility] Facility: [facility] Start: 08-01-2024 Registered Referred Victor M Rojas MD -[facility] Start: 07-30-2024 ambulatory Butros Latouf Facility: [facility] Start: 07-24-2024 ambulatory Butros Latouf Facility: [facility] Start: 07-24-2024 Registered Referred Victor M Rojas MD -[facility] Start: 07-23-2024 End: 07-23-2024 ambulatory Victor M Rojas Facility:[facility] Start: 07-23-2024 End: 07-23-[address] Victor M Rojas MD -[facility] Work Phone: Start: 07-05-2024 End: 07-05-2024 ambulatory Butros Latouf Facility:[facility] Start: 07-05-2024 End: 07-05-2024 Patient encounter procedure Christina RIVERA -[facility] Work Phone: Start: 07-02-2024 End: 07-02-2024 ambulatory Nikolai Connor PA-C Work Phone: Urology Comment on above: CT urogram results Start: 07-02-2024 End: 07-02-2024 E-mail encounter from caregiver Nikolai Connor PA-C Work Phone: Urology Start: 06-28-2024 End: 06-28-2024 ambulatory NIKOLAI CONNOR Facility:[facility] Start: 06-28-2024 End: 06-28-2024 Subsequent hospital visit by physician Clare [facility] Work Phone: Cat Scan Comment on above: Gross hematuria [R31 .0] Start: 06-27-2024 ambulatory Butros Latouf Facility: [facility] Start: 06-27-2024 Registered Referred Victor M Rojas MD -[facility] Start: 06-21-2024 End: 07-09-2024 Telephone encounter Nikolai Connor PA-C Work Phone: Urology Comment on above: Results Start: 06-20-2024 ambulatory Butros Latouf Facility: [facility] Start: 06-20-2024 Registered Referred Victor M Rojas MD -[facility] Start: 06-18-2024 End: 06-18-2024 ambulatory NIKOLAI CONNOR Facility:[facility] Start: 06-18-2024 End: 06-18-2024 Patient encounter procedure Nikolai Connor PA-C Work Phone: Urology Comment on above: Screening for genito urinary condition (Primary Dx); Gross hematuria; Left renal mass Start: 06-17-2024 End: 06-17-2024 Patient encounter procedure Christina RIVERA -[facility] Work Phone: Start: 06-17-2024 End: 06-17-2024 ambulatory Butros Latouf Facility:[facility] Start: 06-17-2024 Registered Referred Victor M Rojas MD -[facility] Start: 06-06-2024 End: 06-06-2024 Patient encounter procedure Kacie GARLAND -[facility] Work Phone: Start: 06-06-2024 End: 06-06-2024 ambulatory Butros Latouf Facility:[facility] Start: 05-21-2024 End: 05-22-2024 ambulatory Victor M DAVID Facility:[facility] Start: 05-08-2024 End: 05-08-2024 ambulatory Butros Latouf Facility:[facility] Start: 01-08-2024 End: 01-08-[address] KENNY CHUA MD Facility:A Start: 04-13-2023 Emergency department patient visit VALENTIN PHAN BISMARK [facility] Start: 03-27-2023 Telephone encounter Urology (History ) Urology Start: 02-08-2023 End: 02-08-[address] Dexter Reyes Work Phone: [facility] Work Phone: Start: 02-08-2023 End: 02-08-[address] Dexter Reyes Work Phone: [facility] Work Phone: Start: 01-30-2023 End: 01-30-[address] Dexter Reyes Work Phone: [facility] Work Phone: Start: 01-30-2023 End: 01-30-[address] Dexter Reyes Work Phone: [facility]-Radiology, [facility] Work Phone: Start: 01-11-2023 End: 01-11-[address] Dexter Reyes Work Phone: [facility] Work Phone: Start: 12-17-2022 Non-patient / Non-visit Dr. Robel Reyes Work Phone: [facility] Work Phone: Start: 12-16-2022 Non-patient / Non-visit Dr. Robel Reyes Work Phone: [facility] Start: 12-16-2022 Non-patient / Non-visit Dr. Robel Reyes Work Phone: [facility] Work Phone: Start: 12-15-2022 Non-patient / Non-visit Dr. Robel Reyes Work Phone: [facility] Start: 12-15-2022 Non-patient / Non-visit Dr. Robel Reyes Work Phone: [facility] Start: 12-15-2022 Non-patient / Non-visit Dr. Robel Reyes Work Phone: [facility] Work Phone: Start: 12-14-2022 End: 12-17-2022 Evaluation and management of inpatient Dr[facility] Dexter [facility] Work Phone: Start: 12-14-2022 End: 01-08-2024 Pre-admission assessment DR KENNY CHUA MD [facility] Start: 12-14-2022 Non-patient / Non-visit Dr. Robel Reyes Work Phone: [facility] Work Phone: Start: 09-06-2022 Telephone encounter Quanjay Amosmatt raygoza DO Work Phone: Rheumatology Comment on above: Patient Update Start: 09-01-2022 End: 09-01-2022 Patient encounter procedure Terence Phelps MD Work Phone: Ophthalmology Comment on above: Optic nerve edema (P rimary Dx) Vision changes (Prim anish Dx); Photosensitivity; PVD (peripheral vascular disease) ([facility]); Type 2 diabetes mellitus with other specified complication, without long-term current use of insulin ([facility]); prison current use of systemic steroids; Vitamin D deficiency Start: 01-17-2022 End: 01-17-2022 Patient encounter procedure HUNTER FALCON LASER SPECIALIST-INTERVENTIONAL RADIOLOGY RN [facility] Start: 12-30-2021 End: 01-13-2022 Evaluation and management of inpatient DR KARL BARRERA MD [facility] Start: 11-23-2021 End: 11-23-2021 Subsequent hospital visit by physician Fer Weinstein MD Work Phone[facility] Comment on above: CHRONIC HEADACHES Start: 02-09-2021 End: 02-09-2021 Subsequent hospital visit by physician Ammy Vicente MD Work Phone: [facility] General Surgery Comment on above: Arrived Start: 11-13-2020 ambulatory [facility] Facility:[facility] Start: 09-09-2020 ambulatory [facility] Facility:[facility] Procedures Date Procedure Procedure Detail [...] on above: Performed By: #### MAG #### [facility] [address] [id number] Start: 06-19-[address] KARL BARRERA MD [...] Vaccine (2 - Td or Tdap) [facility] Start: 02-17-2025 Influenza vaccination [facility] Start: 01-14-2025 End: 01-14-2025 Patient encounter procedure 01/14/2025 9:15 AM EDT Office Visit Urology [address] [place] [id number] Gayla Cline MD [address] [place] [address]Mooney LUCINA referral for cysto Urology Comment on above: WILL BE ON Dr.Mooney LUCINA referral for c ysto Start: 11-08-2024 End: 11-08-2024 Patient encounter procedure 11/08/2024 8:15 AM EDT Office Visit Urology [address] [place] [id number] Gayla Cline MD [address] [place] [address] referral for cysto Urology Comment on above: referral for cysto Start: 10-15-2024 End: 10-15-[address] [facility] Start: 07-02-2024 Cystourethroscopy CYSTO.PANENDO Procedures Routine Gross hematuria Expected: 07/02/2024 (Approximate) [facility] Comment on above: Expected: 07/02/2024 (Approximate) Start: 06-28-2024 End: 06-28-2024 Patient encounter procedure 06/28/2024 1:20 PM EST Appointment Cat Scan [address] [place] [address] Gross hematuria [R31.0] Cat Scan Comment on above: Gross hematuria [R31.0] Start: 06-25-2024 End: 09-24-2024 CREATININE BLD CREATININE BLD Lab Routine Screening for genitourinary condition Gross hematuria Expected: 06/25/2024 (Approximate), Expires: 09/24/2024 [facility] Comment on above: Expected: 06/25/2024 (Approximate), Expi res: 09/24/2024 Start: 06-25-2024 End: 07-19-2025 CT Kidney WO and W contrast IV CT UROGRAM WO/W IVCON Radiology Routine Gross hematuria Expected: 06/25/2024, Expires: 07/19/2025 [facility] Comment on above: Expected: 06/25/2024, Expires: Start: 06-19-2024 Advance Directive Discussion Advance Directive Discussion [facility] Start: 06-19-2024 Medicare Advantage Annual Wellness Visit Medicare Advantage Annual Wellness Visit [facility] Start: 02-18-2024 Covid-19 Vaccine ( season) Covid-19 Vaccine ( season) [facility] Start: 02-18-2024 Influenza vaccination Influenza Vaccine (#1) [facility] Start: 09-02-2023 Glaucoma screening Dilated Retinal Exam [facility] Start: 09-02-2023 Hepatitis C antibody, confirmatory test DILATED RETINAL EXAM [facility] Start: 08-13-2023 Hemoglobin A1c measurement HbA1C [facility] Start: 08-13-2023 Hemoglobin A1c/Hemoglobin.total in Blood HbA1C [facility] Start: 06-19-2023 Advance Directive Discussion Advance Directive Discussion [facility] Start: 02-17-2023 Influenza vaccination Influenza Vaccine (#1) [facility] Start: 02-15-2023 Hepatitis B screening URINE ALBUMIN:CREATININE RATIO [facility] Start: 12-17-2022 Patient discharge [facility] Start: 12-16-2022 Dietary regime [facility] Start: 12-16-2022 Catheterization of vein [facility] Start: 12-16-2022 Vital signs measurements [facility] Start: 12-15-[address] [facility] Start: 12-15-[address] [facility] Start: 12-14-2022 Admission procedure [facility] Start: 12-14-2022 Wound care [facility] Start: 12-14-2022 Consultation for treatment [facility] Start: 12-14-2022 Catheterization of vein [facility] Start: 12-14-2022 Following clinical pathway protocol [facility] Start: 12-14-2022 Admission procedure [facility] Start: 12-14-2022 Assessment of risk of venous thromboembolism [facility] Start: 12-14-2022 Care regimes management [facility] Start: 12-14-2022 Insertion of catheter into peripheral vein [facility] Start: 12-14-2022 Providing care according to standard [facility] Start: 12-14-2022 Provision of activity privileges [facility] Start: 12-14-2022 Fall prevention [facility] Start: 12-14-2022 Introduction of urinary catheter [facility] Start: 12-14-2022 Oxygen therapy [facility] Start: 12-14-2022 Referral to occupational therapist [facility] Start: 12-14-2022 Referral to service [facility] Start: 12-14-2022 Measuring intake and output [facility] Start: 12-14-2022 Referral to gastroenterology service [facility] Start: 12-14-2022 Referral to general surgeon [facility] Start: 12-14-2022 Inhalation therapy procedure [facility] Start: 12-14-2022 Patient referral to dietitian [facility] Start: 12-14-2022 End: 12-14-[address] [facility] Start: 10-11-2022 Hemoglobin A1c/Hemoglobin.total in Blood HBA1C [facility] Start: 08-07-2022 Covid-19 Vaccine (6 - Moderna series) Covid-19 Vaccine (6 - Moderna series) [facility] Start: 06-19-2022 ADVANCE DIRECTIVE DISCUSSION ADVANCE DIRECTIVE DISCUSSION [facility] Start: 06-19-2022 DEPRESSION ASSESSMENT DEPRESSION ASSESSMENT [facility] Start: 02-17-2022 Influenza vaccination INFLUENZA (Season Ended) [facility] Start: 06-19-2021 ADVANCE DIRECTIVE DISCUSSION ADVANCE DIRECTIVE DISCUSSION [facility] Start: 03-17-2021 End: 03-17-2021 Patient encounter procedure 03/17/2021 Office Visit Ophthalmology Ammy Vicente MD [address] [place], [place] [id number] [facility] Start: 02-17-2021 Influenza vaccination Flu vaccine (#1) [facility] Work Phone: Start: 02-17-2021 End: 02-17-2021 Patient encounter procedure 02/17/2021 Office Visit Ophthalmology Ammy Vicente MD [address] [place] [address] [phone] [facility] Start: 02-10-2021 End: 02-10-2021 Patient encounter procedure 02/10/2021 Office Visit Ophthalmology Ammy Vicente MD [address] [place], [place] [id number] [facility] Start: 08-15-2020 Hemoglobin A1c/Hemoglobin.total in Blood HBA1C [facility] Start: 2016 RSV Vaccine (1 - 1-dose 75+ series) RSV Vaccine (1 - 1-dose 75+ series) [facility] Start: 2006 Pneumococcal 65+ years Vaccine (1 of 1 - PPSV23) Pneumococcal 65+ years Vaccine (1 of 1 - PPSV23) [facility] Work Phone: Start: 2001 Hepatitis B Vaccine (1 of 3 - Risk 3-dose series) Hepatitis B Vaccine (1 of 3 - Risk 3-dose series) [facility] Start: 1991 Shingles Vaccine (1 of 2) Shingles Vaccine (1 of 2) [facility] Work Phone: Start: 1991 SHINGRIX VACCINE (1 of 2) SHINGRIX VACCINE (1 of 2) [facility] Start: 1960 DTaP/Tdap/Td vaccine (1 - Tdap) DTaP/Tdap/Td vaccine (1 - Tdap) [facility] Work Phone: Start: 1960 Pneumococcal Vaccine: 50+ (1 of 2 - PCV) Pneumococcal Vaccine: 50+ (1 of 2 - PCV) [facility] Start: 1960 Urine microalbumin profile [facility] tony Start: 1959 ANNUAL PCP TEAM CHRONIC DISEASE VISIT ANNUAL PCP TEAM CHRONIC DISEASE VISIT [facility] Start: 1959 Anxiety Screening Anxiety Screening [facility] Start: 1959 BP CONTROLLED (<130/80) BP CONTROLLED (<130/80) [facility] Start: 1959 Depression Screening Depression Screening [facility] Start: 1959 Hepatitis B surface antibody level LDL CHOLESTEROL [facility] Start: 1953 Adult depression screening assessment DEPRESSION SCREENING [facility] Start: 1953 COVID-19 Vaccine (1) COVID-19 Vaccine (1) [facility] Work Phone: Start: 1951 3 comp foot exam [facility] Start: 1951 Diabetic foot examination Diabetic Foot Exam [facility] Start: 1951 Hepatitis B screening URINE ALBUMIN:CREATININE RATIO [facility] Start: 1951 Hepatitis C antibody, confirmatory test DILATED RETINAL EXAM [facility] Start: 1951 Lipid panel Lipid screen [facility] Work Phone: Start: 1947 Pneumococcal Vaccine: 65+ (1 - PCV) Pneumococcal Vaccine: 65+ (1 - PCV) [facility] Start: 1947 PNEUMOCOCCAL: 65+ (1 - PCV) PNEUMOCOCCAL: 65+ (1 - PCV) [facility] Start: 1946 COVID-19 VACCINE (#1) COVID-19 VACCINE (#1) [facility] Start: 1941 Creatinine measurement Creatinine monitoring [facility] Work Phone: Start: 1941 Hepatitis C screening Hepatitis C screen [facility] Work Phone: Start: 1941 Potassium monitoring Potassium monitoring [facility] Work Phone: Start: 1941 Thyroid stimulating hormone measurement TSH testing [facility] Work Phone: Bacteria identified in Urine by Culture [facility] Comment on above: Ordered: 06/18/2024 Bacteria identified in Urine by Culture BACTERIAL CULTURE, URINE Microbiology Routine Gross hematuria 10/01/2024 3:36 PM EDT [facility] Blood glucose - POCT [facility] Work Phone: Comment on above: As Needed until discontinued starting End: 02-09-2021 Creatinine [Mass/volume] in Serum or Plasma Creatinine, serum Lab STAT One Time for 1 Occurrences starting 02/09/2021 until 02/09/2021 [facility] Work Phone: Comment on above: One Time for 1 Occurrences starting 01/18 until 02/09/2021 CT Kidney WO and W contrast IV CT UROGRAM WO/W IVCON Radiology Routine Gross hematuria 06/28/2024 2:26 PM EST [facility] Work Phone: End: 11-03-2025 CT Kidney WO and W contrast IV CT UROGRAM WO/W IVCON Radiology Routine Gross hematuria 1 Occurrences starting 10/04/2024 until 11/03/2025 [facility] Work Phone: Comment on above: 1 Occurrences starting 10/04/2024 until 11/03/2025 Cystourethroscopy CYSTO.PANENDO Procedures Routine Gross hematuria Ordered: 10/01/2024 [facility] Comment on above: Ordered: 10/01/2024 CYTOLOGY NON-[place] DEHYDRATOR OPERATOR [facility] Comment on above: Ordered: 06/18/2024 End: 02-09-2021 Intermittent pulse oximetry Pulse Oximetry Spot Check Respiratory Care Routine One Time for 1 Occurrences starting 02/09/2021 until 02/09/2021 [facility] Work Phone: Comment on above: One Time for 1 Occurrences starting 01/18 until 02/09/2021 Nasal Cannula Oxygen Nasal Cannu la Oxygen Respiratory Care Routine As Needed until discontinued starting 02/09/2021 [employer] Work Phone: Comment on above: As Needed until discontinued starting Nonrebreather mask oxygen Nonreb reather mask oxygen Respiratory Care Routine As Needed until discontinued starting 02/09/2021 [employer] Work Phone: Comment on above: As Needed until discontinued starting Oxygen therapy [[facility]] [employer] Work Phone: Comment on above: Daily until discontinued starting 2020 As Needed until disc ontinued starting 02/09/2021 Patient Education ED Eye Contusi on ED Head Injury (Adult) ED Skin Tear (Skin Avulsion) [facility] Work Phone: Patient referral [facility] Work Phone: POST VOID RESIDUAL POST VOID RES IDUAL Procedures Routine Gross hematuria Screening for genitourinary condition Ordered: 10/01/2024 [facility] Work Phone: Comment on above: Ordered: 10/01/2024 End: 02-09-2021 Potassium w/ Reflex to Magnesium Potassium w/ Reflex to Magnesium Lab Routine One Time for 1 Occurrences starting 02/09/2021 until 02/09/2021 [employer] Work Phone: Comment on above: One Time for 1 Occurrences starting 01/18 until 02/09/2021 End: 02-09-2021 , urine POCT , urine POCT Point of Care Testing Routine One Time for 1 Occurrences starting 02/09/2021 until 02/09/2021 [employer] Work Phone: Comment on above: One Time for 1 Occurrences starting 01/18 until 02/09/2021 End: 02-09-2021 Protime-INR Protime-INR Lab STAT One Time for 1 Occurrences starting 02/09/2021 until 02/09/2021 [employer] Work Phone: Comment on above: One Time for 1 Occurrences starting 01/18 until 02/09/2021 Spirometry panel Incentive arthur metry Respiratory Care Routine Q1H PRN until discontinued starting 02/09/2021 [facility] Work Phone: Comment on above: Q1H PRN until discontinued starting 01/18 UA DIP, URINE (POC) UA DIP, URIN E (POC) Lab Routine Screening for genitourinary condition Ordered: 06/18/2024 [facility] Work Phone: Comment on above: Ordered: 06/18/2024 Immunizations Immunization Date Immunization Notes Care Provider Fa cility 10-15-2024 tetanus toxoid, reduced diphtheria toxoid, and acellular pertussis vaccine, adsorbed Dr. Diana Salmeron MD Work Phone: [facility] 03-19-2022 influenza virus vaccine, unspecified formulation Urology (History) [facility] 10-25-2021 Covid (Pfizer) Dr. Dexter Reyes Work Phone: [facility] 05-21-2021 influenza virus vaccine, unspecified formulation DR KARL BARRERA MD [facility] 05-21-2021 SARS-CoV-2 (COVID-19 ) [id number] KARL BARRERA MD [facility] 03-10-2021 influenza virus vaccine, unspecified formulation DR KARL BARRERA MD [facility] [facility] SARS-CoV-2 (COVID-19 ) mRNA-[address] KARL BARRERA MD [facility] Comment on above: Result Comment: 2021: TPV3 09-15-2020 SARS-CoV-2 (COVID-19 ) mRNA-[address] KARL BARRERA MD [facility] Comment on above: Result Comment: 2021: TPV3 03-22-2020 influenza virus vaccine, unspecified formulation DR KARL BARRERA MD [facility] 02-18-2020 influenza virus vaccine, unspecified formulation DR KARL BARRERA MD [facility] 03-18-2019 influenza, injectabl e, quadrivalent, preservative free Dr. Diana Salmeron MD Work Phone: [facility] 03-18-2019 influenza, seasonal, injectable Dr. Dexter Reyes Work Phone: [facility] 03-04-2019 influenza virus vaccine, unspecified formulation DR KARL BARRERA MD [facility] 02-22-2017 influenza virus vaccine, unspecified formulation DR KARL BARRERA MD [facility] Payers Date Payer Category Payer Medicare (Managed Care) [facility] MEDICARE [id number] 2024 Self-pay [id number] 2020 Medicare [id number]. [id number] 2019 Private Health Insurance [id number]. [id number] 2019 Medicaid [id number]. 1.13.159.2. [id number] 2019 Medicaid [id number] 2015 Medicare MMO MEDICARE [id number] 2006 Medicare [id number]. 1.13.159.2. [id number] 2006 Medicare [id number] 1940 Unknown [id number] 2.16.840.1.836941.3.579.2. 594 1940 Unknown [id number] 2.16.840.1.240559.3.579.2. 594 1941 Unknown [id number] 2.16.840.1.708178.3.579.2. 594 1941 Unknown [id number] 2..840.1.548832.3.579.2. 627 1940 Unknown [id number] 2.16840.1.516400.3.579.2. 651 Medicare [id number] Unknown [id number] 2.16.840.1.276290.3.579.2. 462 Unknown [id number] 2.16.840.1.655404.3.579.2. 462 Unknown [id number] 2.16.840.1.990115.3.579.2. 462 Unknown [id number] 2.16.840.1.680818.3.579.2. 462 Unknown [id number] 2.16.840.1.831608.3.579.2. 462 Unknown [id number] 2.16.840.1.003969.3.579.2. 462 Unknown [id number] 2.16.840.1.066482.3.579.2. 462 Unknown [id number] 2.16.840.1.800517.3.579.2. 462 Unknown [id number] 2.16.840.1.426483.3.579.2. 462 Unknown [id number] 2.16.840.1.922641.3.579.2. 462 Unknown [id number] 2.16.840.1.942802.3.579.2. 462 Unknown [id number] 2.16.840.1.867501.3.579.2. 462 Unknown [id number] 2.16.840.1.098007.3.579.2. 462 Unknown [id number] 2..840.1.953070.3.579.2. 462 Unknown [id number] 2.840.1.208597.3.579.2. 462 Unknown [id number] 2..840.1.478789.3.579.2. 462 Unknown [id number] 2.840.1.409534.3.579.2. 462 Unknown [id number] 2.840.1.717780.3.579.2. 462 Unknown [id number] 2.840.1.230400.3.579.2. 462 Unknown [id number] 2.840.1.822833.3.579.2. 462 Unknown [id number] 2.840.1.845448.3.579.2. 462 Unknown [id number] 2.840.1.466670.3.579.2. 462 Unknown [id number] 2..840.1.154216.3.579.2. 462 Unknown [id number] 2.16.840.1.114690.3.579.2. 462 Unknown [id number] 2.16.840.1.558192.3.579.2. 462 Unknown [id number] 2.16.840.1.252601.3.579.2. 462 Unknown [id number] 2.16840.1.195844.3.579.2. 462 Unknown [id number] 2.16.840.1.449116.3.579.2. 462 Unknown [id number] 2.16.840.1.492510.3.579.2. 462 Unknown [id number] 2.16.840.1.997947.3.579.2. 462 Unknown [id number] 2.16.840.1.714396.3.579.2. 462 Unknown [id number] 2.16.840.1.039426.3.579.2. 462 Unknown [id number] 2.16.840.1.248209.3.579.2. 462 Unknown [id number] 2.16.840.1.556040.3.579.2. 462 Unknown [id number] 2.16.840.1.615033.3.579.2. 462 Unknown [id number] 2.16.840.1.961157.3.579.2. 462 Unknown [id number] 2.16.840.1.398114.3.579.2. 462 Unknown [id number] 2.16.840.1.603663.3.579.2. 462 Unknown [id number] 2.16.840.1.757498.3.579.2. 462 Social History Date Type Detail Facility Start: 02-09-2021 End: 10-15-2024 Tobacco smoking status ORIS Former smoker [facility] Start: 02-09-2021 End: 01-14-2025 Alcohol intake Current drinker of alcohol (finding) [employer] Work Phone: Start: 02-02-2021 Alcohol Comment occassional ETOH use, not on a daily basis [employer] Work Phone: Start: 1940 Sex Assigned At Not on file [employer] Work Phone: Exposure to SARS-CoV -2 (event) Not sure [facility] Start: 12-14-2022 Tobacco smoking status ORIS Tobacco smoking consumption unknown [facility] Start: 05-15-2020 History SDOH Alcohol Frequency 2 [facility] Start: 05-15-2020 History SDOH Alcohol Std Drinks 1 [facility] Start: 12-10-2019 History SDOH Financial 4 [facility] Start: 1940 Sex Assigned At Male [facility] Start: 01-08-1960 End: 01-07-1990 History of tobacco use Current smoker [facility] Work Phone: Start: 01-08-1960 End: 01-07-1990 History of tobacco use Cigarette Smoker [facility] Work Phone: Start: 05-15-2020 End: 05-05-2023 Cigarettes smoked current (pack per day) - Reported 1 [facility] Work Phone: Start: 05-15-2020 End: 06-18-2024 Tobacco use and exposure Smokeless tobacco non-user [facility] Work Phone: Start: 09-05-2019 End: 05-05-2023 Tobacco Comment STOPPED 28 YEARS AGO [facility] Start: 09-05-2019 Alcohol Comment OCCASIONAL [facility] Start: 09-12-[address] [facility] Start: 09-12-[address] [facility] Start: 11-23-2019 - [facility] Start: 12-18-2019 Non-smoker [facility] Start: 05-15-2020 End: 05-05-2023 Alcohol Use Disorder Identification Test - Consumption [AUDIT-C] [facility] Work Phone: How often to you hav e a drink containing alcohol? Monthly or less [facility] Work Phone: How many standard dr inks containing alcohol do you have on a typical day? 1 or 2 [facility] Work Phone: Frequency of Binge Drinking Not on file [facility] How hard is it for y ou to pay for the very basics like food, housing, medical care, and heating Not very hard [facility] (I/We) worried whemeka er (my/our) food would run out before (I/we) got money to buy more. DK or Refused [facility] Start: 09-20-2024 End: 10-16-2024 Sex Male (finding) [facility] Medical Equipment Procedure Code Equipment Code Equipment Origin al Text Equipment Identifier Dates ERCP (endoscopic retrograde cholangiopancreatog lalit) ([id number]) Polymeric biliary stent, non-bioabsorbable [id number] FDA Start: 12-15-2022 Patch Xenosure Bovine Pericardial Tissue 8x.8cm Vascular Sterile - [id number] Start: 09-02-2019 Goals Date Patient Goal Desired Activity /State Functional Status Date Assessment Result Facility 12-17-2022 Functional status Bedrest [facility] Work Phone: 12-16-2022 Functional status Tolerates Activity Fair [facility] Work Phone: 01-13-2022 Functional Status Room check performed [facility] 01-13-2022 Functional Status [facility] 01-13-2022 Functional Status [facility] 01-13-2022 Functional Status [facility] 01-13-2022 Functional Status [facility] 01-12-2022 Functional Status [facility] 01-12-2022 Functional Status [facility] 01-12-2022 Functional Status 50 [facility] 01-12-2022 Functional Status [facility] 01-12-2022 Functional Status Bed Bath Refused [facility] 01-12-2022 Functional Status bilateral knee high [facility] 01-12-2022 Functional Status padded oxygen tubing [facility] 01-11-2022 Functional Status Linen Change Done [facility] 01-11-2022 Functional Status [facility] 01-11-2022 Functional Status [facility] 01-10-2022 Functional Status [facility] 01-10-2022 Functional Status [facility] 01-10-2022 Functional Status Shampoo/Body w abdirashid (no rinse), CHG bath [facility] 01-10-2022 Functional Status [facility] 01-09-2022 Functional Status [facility] 01-09-2022 Functional Status [facility] 01-08-2022 Functional Status [facility] 01-07-2022 Functional Status Transfer Bed t o/from Chair Total 2 [facility] 01-07-2022 Functional Status Supervised 3 [facility] 01-07-2022 Functional Status Hair Care Maximum paola tance [facility] 01-07-2022 Functional Status Fluid Restriction Maint ained [facility] 01-06-2022 Functional Status [facility] 01-05-2022 Functional Status Special Call D candida Unable to use call device [facility] 01-05-2022 Functional Status [facility] 01-05-2022 Functional Status [facility] 01-05-2022 Functional Status Patient Identi fied Identification band, Verbal [facility] 01-04-2022 Functional Status Skin Care Done [facility] 01-03-2022 Functional Status [facility] 01-01-2022 Functional Status [facility] 12-30-2021 Functional Status Living Situati on Alf Unit [facility] 12-30-2021 Functional Status Sensory Defici ts Blind, left eye, Blind, right eye [facility] 12-11-2019 Are you deaf, or do you have serious difficulty hearing No 12/11/2019 4:18 PM Josefa Graves RN No [facility] 12-11-2019 Are you blind, or do you have serious difficulty seeing, even when wearing glasses No 12/11/2019 4:18 PM Josefa Graves, KAVIN No [facility] 12-11-2019 Do you have serious difficulty walking or climbing stairs Yes 12/11/2019 4:18 PM Josefa Graves RN Yes [facility] 12-11-2019 Do you have difficul ty dressing or bathing No 12/11/2019 4:18 PM Josefa Graves RN No [facility] 12-11-2019 Because of a physica l, mental, or emotional condition, do you have difficulty doing errands alone such as visiting a physician's office or shopping Yes 12/11/2019 4:18 PM Josefa Graves, KAVIN Yes [facility] Mental Status Date Assessment Result Facility 12-17-2022 Cognitive function Voice[facility]Name [facility] Work Phone: 01-13-2022 Mental Status Orientation Oriented x 4 [facility] 01-13-2022 Mental Status [facility] 01-12-2022 Mental Status [facility] 01-12-2022 Mental Status [facility] 01-11-2022 Mental Status [facility] 12-11-2019 Because of a physica l, mental, or emotional condition, do you have serious difficulty concentrating, remembering, or making decisions No 12/11/2019 4:18 PM EDT Josefa Mason RN No [facility] Clinical Notes 02-09-2021 to 01-14-2025 Gayla Cline MD - 01/14/2025 10:45 AM Gayla Banuelos MD - 01/14/2025 10:44 AM Gayla Banuelos MD - 01/14/2025 10:44 AM EDT Note Date & Type Note Facility 01-14-2025 Note HNO ID: [id number] Author: GAYLA CLINE MD Service: ? Author [...] (Patient not taking: Reported on 01/14/2025) vit C,Y-Yp-iawoc-lutein-zeaxan (PRESERVISION AREDS-2) 250-90-40-1 mg Take 1 Each [...] daily. (Patient n (more content not included)... 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 Dr. Montgomery in [place] Congestive heart failure (HCC) Diabetes mellitus (HCC) DM (diabetes mellitus) ([facility]) PCP follows Dyslipidemia Heart attack [...] Cline MD documented in this encounter [facility] 01-14-2025 Note HNO ID: [id number] Author: GAYLA CLINE MD Service: ? Author Type: Physician Type: Procedures Filed: 01/14/2025 10:48 Note Text: CYSTOSCOPY PROCEDURE NOTE : Elizabeth Modi is a 84 year old male who is here for cystoscopy PRE-OP/PRE-PROCEDURE DIAGNOSIS: h/o gross henaturia POST-OP/POST-PROCEDURE DIAGNOSIS: same SURGERY/PROCEDURE(S): Cystoscopy Pt ID verified with patient: Yes Procedure verified with patient: Yes Procedure confirmed with physician and field support specialist: Yes UNIVERSAL PROTOCOL / SAFETY [...] meaning may be extrapolated by contextual derivation. [facility] 01-14-2025 Procedure note CYSTOSCOPY PROCEDURE NOTE : Elizabeth Modi is a 84 year old male who is here for cystoscopy PRE-OP/PRE-PROCEDURE DIAGNOSIS: h/o gross henaturia POST-OP/POST-PROCEDURE DIAGNOSIS: same SURGERY/PROCEDURE(S): Cystoscopy Pt ID verified with patient: Yes Procedure verified with patient: Yes Procedure confirmed with physician and field support specialist: Yes UNIVERSAL PROTOCOL / SAFETY [...] meaning may be extrapolated by contextual derivation. [facility] 01-14-2025 Procedure note CYSTOSCOPY PROCEDURE NOTE : Elizabeth Modi is a 84 year old male who is here for cystoscopy PRE-OP/PRE-PROCEDURE DIAGNOSIS: h/o gross henaturia POST-OP/POST-PROCEDURE DIAGNOSIS: same SURGERY/PROCEDURE(S): Cystoscopy Pt ID verified with patient: Yes Procedure verified with patient: Yes Procedure confirmed with physician and field support specialist: Yes UNIVERSAL PROTOCOL / SAFETY [...] contextual derivation. documented in this encounter [facility] 10-16-2024 Evaluation note Diagnosis Onset Date Resolution Atherosclerotic heart disease of [place] coronary artery without angina pectoris chronic October 16, 2024 7:59am Essential hypertension chronic Ap 2024 7:59am Hyperlipidemia chronic September 7:59am Paroxysmal atrial fibrillation chronic October 16, 2024 7:59am [facility] Work Phone: 1(669) 169-728204-29-2025 Discharge summary [facility] Medical Records Department [address] [place] [address] Emergency Department Summary 10/15/24 MR#: [id number] Acct: [id number] Name: ELIZABETH MODI Rep #:[id number] : 1940 84 From: Jesse Griffith PCP: [...] of his last tetanus. 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 Call [facility] ([phone]) or report tothe closest Emergency Room. Call 911 if necessary. 10/15/24 [id number] Cosigner Signature (if applicable): CC: Dr. Diana Salmeron MD ~ Signed [facility]04-29-2025 Radiology Diagnostic study note [facility] Imaging Services [address] [place] [address] Elbow min 3 Views MR#: [id number] Acct: [id number] Name: ELIZABETH MODI Rep #: [id number] : 1940 M 84 From: Franko Kapadia MD PCP: Dr. Diana Salmeron MD Status: REG ER Study:Elbow min 3 Views Date of Exam: Exam# [id number] Ordering Dr: Jesse Angel DO EXAM: Left elbow CLINICAL HISTORY: Injury, pain COMPARISON: None TECHNIQUE: Three views FINDINGS: No acute fracture or dislocation. Moderate joint space narrowing and osteophyte formation consistent with moderatearthrosis. Normal soft tissues. RAD/Elbow min 3 Views IMPRESSION: No acute fracture or dislocation. Moderate arthrosis. Reading Location: [facility] CC: Dr. Diana Salmeron MD; Dr. Jesse Angel DO ~ Homicide Investigator: Signed [facility]04-29-2025 Radiology Diagnostic study note [facility] Imaging Services [address] [place] [address] Orb Sella Post Fossa Ear w/o MR#: [id number] Acct: [id number] Name: ELIZABETH MODI Rep #: [id number] : 1940 M 84 From: Franko Kapadia MD PCP: Dr. Diana Salmeron MD Status: REG ER Study:Orb Sella Post Fossa Ear w/o Date of Ex am: 10/15/24 Exam# [id number] Ordering Dr: Jesse Angel DO PROCEDURE: ORB [...] ORBITAL FRACTURE OR RETROBULBAR HEMATOMA. Reading Location: [id number] CC: Dr. Diana Salmeron MD; Dr. Jesse Angel DO ~ Homicide Investigator: Signed [facility]04-29-2025 Discharge summary Author Jesse Angel [facility] Note Date/Time October 15, 2024 11: 45pm [facility] Medical Records Department [address] [place] [address] Emergency Department Summary 10/15/24 MR#: [id number] Acct: [id number] Name: ELIZABETH MODI Rep #:[id number] : 1940 84 From: Jesse Griffith PCP: [...] of his last tetanus. 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 Call [employer] [facility] ([phone]) or report to the closest Emergency Room. Call 911 if necessary. 10/15/245 <Electronically signed by Jesse Angel DO> Cosigner Signature (if applicable): CC: Dr. Diana Salmeron MD ~ Signed [facility] Work Phone: 1(616) 777-183104-15-2025 Telephone encounter Note* Telephone Encounter - Yue Huffman - 10/01/2024 2:11 PM EDT May you please submit another order for for Urogram CT. When last appt was canceled the order was not removed from the appt. Sorry for the inconvenience. Marivel PSS [facility]04-15-2025 Miscellaneous Notes* Telephone Encounter - Yue Su - 10/01/2024 2:11 PM EDT May you please submit another order for for Urogram CT. When last appt was canceled the order was not removed from the appt. Sorry for the inconvenience. Marivel PSS [facility] Instructions* Patient Instructions* Nikolai Connor PA-C - 10/01/2024 1:46 PM EDT documented [facility]25 NoteHNO ID: [id number] Author: NIKOLAI CONNOR PA-C Service: ? Author Type: Physician Clinical Study Manager Type: Progress Notes Filed: 10/01/2024 14:58 Note Text: [facility] PATIENT CLINIC NOTE (M) Some elements [...] (ADULTS MULTIVITAMIN ORAL) Take by mouth. 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 Dr. Montgomery in [place] Congestive (more content not included)...[facility]04-15-2025 History of Present illness Narrative* Nikolai Connor PA-C - 10/01/2024 1:42 PM EDT Images from the original note were not included. [facility] PATIENT CLINIC NOTE (M) Some elements [...] (ADULTS MULTIVITAMIN ORAL) Take by mouth. vit C,B-Eu-phyjq-lutein-zeaxan (PRESERVISION AREDS-2) 250-90-40-1 mg Take 1 Each [...] kidney disease no dialysis. Dr. Montgomery in [place] Congestive heart failure (HCC) DM (diabetes mellitus) [...] cyanosis, or edema The patient or authorized chain sales representative has verbally agreed to proceed [...] (bladder scope) with Dr. Hawk at [facility] has been placed; please turn in the printed order with the correction so they can schedule your procedure. A [...] Appointment with Nikolai. [facility]25 NoteHNO ID: [id number] Author: LUKE TAYLOR LPN Service: ? Author [...] tolerated the procedure well. Plan: Appointment with Nikolai.[facility]03-21-2025 Evaluation note* Diagnosis Onset Date Resolution Status Admit Date Fecal incontinence acute September 06, 2024 1:38pm S/P ERCP chronic September 06 1:38pm [facility] Work Phone: 1(802) 438-609703-21-2025 Evaluation note* Diagnosis Onset Date Resolution Status Admit Date Fecal incontinence acute September 06, 2024 1:38pm S/P ERCP chronic March 21st, 20 25 1:38pm Atherosclerotic heart diseas e of [place] coronary artery without angina pectoris chronic October 16, 2024 7:59am Essential hypertension chronic Ap 2024 7:59am Hyperlipidemia chronic September 7:59am Paroxysmal atrial fibrillation chron ic October 16, 2024 7:59am [facility] Work Phone: 1(671) 401-656901-21-2025 Telephone encounter Note* Telephone Encounter - Luke Taylor LPN - 07/09/2024 3:50 PM EST Letter sent to patient that we have not been able to contact [facility]. Luke Taylor LPN [facility]01-21-2025 Miscellaneous Notes* Telephone Encounter - [...] the rest of the testing JAJA Stewart, [place], TU documented in [facility] Telephone encounter Note * Telephone Encounter - Luke Taylor LPN - 07/09/2024 3:47 PM EST Called [facility]. No answer- left message to call clinic. Luke Taylor LPN [facility]01-17-2025 Telephone encounter Note* Telephone Encounter - Luke Taylor LPN - 07/05/2024 4:27 PM EST Called [facility]. No answer- left message to call clinic. Luke Taylor LPN [facility]01-14-2025 Telephone encounter Note* Telephone Encounter - Nayeli Dominguez - 07/02/2024 2:24 PM EST Left pt's daughter message to call & schedule cysto with Dr. Prakash Connor. [facility] [facility] Miscellaneous Notes* Telephone Encounter - Nayeli Dominguez - 07/02/2024 2:24 PM EST Left pt's daughter message to call & schedule cysto with Dr. Prakash Connor. Delmi documented in this encounterOhiohealth [facility] City [facility]-10-[facility] History of Present illness Narrative* Fatou [...] PATIENT PRESENTS WITH AN IMPLANTABLE OR ATTACHED BIBLE WORKER: No ALLERGIES: Reviewed and unchanged CONTRAST ALLERGY: [...] TIME: 1:57 PM documented in this encounterOhiohealth Grove City [facility]01-10-2025 NoteHNO ID: [id number] Author: LUKE WHITMORE RT(R) Service: ? Author Type: Credit Administration Specialist Type: Progress Notes Filed: 06/28/2024 13:57 Note [...] PATIENT PRESENTS WITH AN IMPLANTABLE OR ATTACHED BIBLE WORKER: No ALLERGIES: Reviewed and unchanged CONTRAST ALLERGY: [...] Modi DATE: June 28, 2024 TIME: 1:57 [facility]01-07-2025 Telephone encounter Note* Telephone Encounter - Susan Joy MA - 06/25/2024 8:46 AM EST LM for Angelic to contact office to inform. Susan Joy MA [facility]01-03-2025 Telephone encounter Note* Telephone Encounter - Anaid Payne MA - 06/21/2024 4:28 PM EST ----- Message from Nikolai Connor PA-C sent at 06/21/2024 3:54 PM EST ----- No infection in the urine No cancer cells in urine, please continue the rest of the testing JAJA Stewart MT, PA-C [facility]12-31-2024 NoteHNO ID: [id number] Author: NIKOLAI CONNOR PA-C Service: ? Author Type: Physician Clinical Study Manager Type: Progress Notes Filed: 06/18/2024 16:05 Note Text: [facility] NEW PATIENT CLINIC NOTE SERVICE DATE: June 18, 2024 NAME: Elizabeth Modi CHIEF COMPLAINT: Hematuria HISTORY OF PRESENT ILLNESS: Elizabeth Modi is a 83 year old male an new patient here for The patient reports Hematuria with a few episodes of hematuria Will get Urine sample today for culture and cytology Schedule Cystoscopy at [place] And CT Urogram at [place] We discussed the need for full hematuria [...] (ADULTS MULTIVITAMIN ORAL) Take by mouth. vit C,E-Da-mrlwh-lutein-zeaxan (PRESERVISION AREDS-2) 250-90-40-1 mg Take 1 Each [...] kidney disease no dialysis. Dr. Montgomery in [place] Congestive heart failure (HCC) DM (diabetes mellitus) (HCC) PCP follows Dyslipidemia Heart attack (HCC) HTN (hypertension) Hypercholesterolemia Hypothyroidism PVD (peripheral vascular disease) (HCC) Renal mass (more content not included)...[facility]12-31-2024 History of Present illness Narrative* Nikolai Connor PA-C - 06/18/2024 1:26 PM EST Images from the original note were not included. [facility] NEW PATIENT CLINIC NOTE SERVICE DATE: June 18, 2024 NAME: Elizabeth Modi CHIEF COMPLAINT: Hematuria HISTORY OF PRESENT ILLNESS: Elizabeth Modi is a 83 year old male an new patient here for The patient reports Hematuria with a few episodes of hematuria Will get Urine sample today for culture and cytology Schedule Cystoscopy at [place] And CT Urogram at [place] We discussed the need for full hematuria [...] (ADULTS MULTIVITAMIN ORAL) Take by mouth. vit C,X-Oe-riwou-lutein-zeaxan (PRESERVISION AREDS-2) 250-90-40-1 mg Take 1 Each [...] kidney disease no dialysis. Dr. Montgomery in [place] Congestive heart failure (HCC) DM (diabetes mellitus) [...] Stewart MT, PA-C documented in this encounterOhiohealth Grove City [facility]12-19-2024 Evaluation note* Diagnosis Onset Date Resolution Status Admit Date Fecal incontinence acute Decemb er 2023 3:30pm S/P ERCP chronic Gil 2023 3:30pm Fecal incontinence acute September 06, 2024 1:38pm S/P ERCP chronic September 06 1:38pm [facility] Work Phone: [phone]) 713-995402-18-2024 Note. MICRO - Microbiology PROCEDURE: Blood Culture [...] Locations *1: This test was performed at: [address], [facility] , [facility] ([place])08-04-2023 Note. MICRO - Microbiology PROCEDURE: Blood Culture [...] Locations *1: This test was performed at: [address], [facility] , [facility] ([place])04-16-2023 Note. MICRO - Microbiology PROCEDURE: Culture Wound [...] Locations *1: This test was performed at: [address], [facility] , [facility] ([place])03-27-2023 Miscellaneous Notes* Telephone Encounter - Ammy Bradshaw - 03/27/2023 1:44 PM EDT Referral received [facility] for OR to call and schedule appt. Ammy Bradshaw documented in this encounterOhiohealth Grove City [facility]03-21-2023 Miscellaneous Notes* Telephone Encounter - Quan Iraheta DO - 09/06/2022 5:03 PM EDT Spoke with patient's nurse at [facility]. Counseled to taper prednisone by 2.5mg weekly [...] with the plan. documented in this encounterOhiohealth Grove City [facility]03-21-2023 Miscellaneous Notes* Telephone Encounter - Quan Iraheta DO - 09/06/2022 12:47 PM EDT Attempted to speak with a provider for Mr. Modi at [facility] to counseling case manager prednisone taper of 2.5mg q week based upon rheumatology and ophthalmology evaluation not c/w GCA. Phone rang without answer x 2. Will attempt to call again this afternoon. 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 Eating Habits- No raw meat, [...] - Being assessed for cataract surgery at [facility] Age related macular degeneration - Smoking [...] 2022 3:05 PM documented in this encounterOhiohealth Grove City [facility]03-16-2023 Instructions* Patient Instructions* Shana Delgado MD - 09/01/2022 10:54 AM EDT Labs on the first floor today Eye exam today in [facility] Continue prednisone dose as is pending labs and eye evaluation documented in this encounterOhiohealth Grove City [facility]03-16-2023 History of Present illness Narrative* [...] muscle aches or pains Vascular surgery at [facility]: Left temporal artery biopsy 12/24/2021 [...] many vessels Eye doctor Dr. Lucas at [facility] sent him to [facility] for [facility] evaluation [phone], Currently on prednisone 10mg daily since 02/28/2022 [...] (initially didn't like the food at the correction) HEAD: negative for, scalp tenderness, jaw claudication, [...] kidney disease no dialysis. Dr. Montgomery in [place] Congestive heart failure (HCC) DM (diabetes mellitus) [...] complication, without long-term current use of (Z79.52) prison current use of systemic steroids (E55.9) Vitamin [...] that was obtained from the patient and correction caregiver today, he has not endorsed GCA [...] Zack Iraheta DO PGY5 Rheumatology Fellow Pager [phone] The above patient was seen and examined [...] Shana Burton MD documented in this encounterOhiohealth Grove City [facility]08-01-2022 Note ORIGINAL EXAMINATION: TWO XRAY [...] Sign Date: 01/17/2022 11:59:11 PM Ordering Provider: [facility]08-01-2022 Note ORIGINAL EXAMINATION: TWO XRAY VIEWS [...] Sign Date: 01/17/2022 11:59:11 PM Ordering Provider: [facility]07-28-2022 Note Discharge Instructions Thank you for [...] 01:00 PM EDT HUNTER FALCON [facility] Cardiothoracic Surgery [facility] Follow Up 02/15/2022 10:00 AM EDT [facility] Follow Up Appointments Follow Up with KARL HIDALGO MD When 02/15/2022 10:00 AM EDT Where: [address] [place] [address]- Follow Up with HUNTER FALCON When 01/17/2022 01:30 PM EDT Why: please obtain a CXR 1 hour prior to your appt. Where: [address] [facility] [place] [address]- Follow Up with Discharge to [facility] LOC [phone] When Within 1-2 days Follow Up with Cardiac Rehab- [facility] When Why: The Cardiac Rehab department will call you to schedule you for phase 2. We left you a brochurewith information about cardiac rehab. If you have any questions please call [phone]. Where: [facility] [address] [place] [address]- The Following Activity and Diet Have Been [...] surgeon and have chest x-ray done at [facility] radiology., 01/13/22 10:45:00 EDT Other Therapies [...] to receive it can visit one of [facility] vaccine clinics. There are many vaccine clinic locations within the [facility]. For locations and available times, please visit [email or web address] It is important to note that some COVID mobile vaccine clinics are held outdoors and may be canceled in rainy or stormy conditions. To learn more about pediatric vaccinations (ages 5-11), we invite you to visit the [facility] webpage. [email or web address]/pages/[email or web address]-Ynjho-Jpfghugeywn-Nvviecbzhu-Lifzg-Rhg stions.htmlTo learn more about the COVID-19 vaccine, we invite you to visit the [employer] website for a list of frequently asked questions. [email or web address]/assets/Tfykznom-qij-Evqpoxvu/wshpy-Vikzdyh-Pqyaxecyvy _[email or web address]-Questions.pdf [place] [facility] Patient Portal Access Instructions: Stay connected with your healthcare team and access your personal medical information anytime with the [facility] Patient Portal.If you would like a full copy of your medical records, please contact the [facility] Medical Records Department, Monday through Monday between 8a.m. and 4:30p.m. Please follow the directions below to access the portal: 1.Access the email account you provided upon registration to the [facility].2.Look for an invitation email from [facility].3.Open the email and access the invitation link: Accept Invitation to [facility]4.Fill in the required rios to create your account. Sign into [email or web address] with your username and password that you [...] you will allow to register on the [facility] Patient Portal for access to your information. You can also access the [facility] Patient Portal on the [employer]. Simply click on Health Records under [employer] and then click on the [employer] logo. HOW TO SAFELY DISPOSE OF PRESCRIPTION [...] Call your local pharmacy or go to [email or web address] to find one close to you.3.Make use of household items: Use cat litter or old coffee grounds to dispose medications if other options arenot available. Mix your drugs with these household products, seal them in an airtight container andthrow it into the garbage. Call [facility]: [phone] to be sure your drugs can be [...] that I should contact my do ctor. 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 Signature: Date/Time: Relationship to Patient: Witness Name/Signature: Date/Time: [facility] [id number] Note ORIGINAL EXAMINATION: ONE XRAY VIEW OF [...] Date: 01/13/2022 6:27:59 AM Ordering Provider: Y[facility]07-28-2022 Note ORIGINAL EXAMINATION: ONE XRAY VIEW [...] Sign Date: 01/13/2022 6:27:59 AM Ordering Provider: [facility]07-27-2022 Note ORIGINAL EXAMINATION: ONE XRAY VIEW [...] Sj Rosales MD Preliminary Report By: Cayetano Larosn Electronically signed By Sj Rosales MD Dictated Date: 01/12/2022 7:25:41 PM Prelim Date: 01/12/2022 7:31:03 PM Sign Date: 01/12/2022 7:32:39 PM Ordering Provider: [facility]07-27-2022 Note ORIGINAL EXAMINATION: ONE XRAY VIEW [...] Sign Date: 01/12/2022 7:32:39 PM Ordering Provider: [facility]07-27-2022 Note Date of Service 01/12/2022 Temporary A and V pacer wires discontinued. Patient tolerated well. Patient instructed to remain bedrest for 1 hour. 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 He resides at [facility]. He presented on 12/30/2021 with sudden onset of altered mental status and shortness of breath. Troponin 3577. Creatinine elevated 2.3. He was transferred to [facility] for fur ther evaluation. Echocardiogram completed showing [...] rhythm in the 60s. Transfer to stepdown. [place] [facility] following for blood sugar management. [...] Central venous access: Left subclavian triple-lumen Disposition: [place] Weight Current Weight Dosing Weight: 81.5 [...] 7. Diabetes Hgb A1c 8.4% Followed by [place] [facility]. Glucoses ranging 69-1 33. On [...] Dr. Hernandez. 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 He resides at [facility]. He presented on 12/30/2021 with sudden onset of altered mental status and shortness of breath. Troponin 3577. Creatinine elevated 2.3. He was transferred to [facility] for fur ther evaluation. Echocardiogram completed showing [...] rhythm in the 60s. Transfer to stepdown. [place] [facility] following for blood sugar management. [...] 09:04 EDT Digitally Signed by PALAK NORMAN APRN-MANDATE RETAIL SERVICE MERCHANDISER on 01/11/2022 11:18 AM [facility] [id number] Endocrinology Progress note Date of Service 01/11/22 [...] Weinstein on 12/24/2021-on prednisone. He resides at [facility] past 3 months. He presented to [facility] on December 30, 2021 due to a sudden onset of alteredmental status and shortness of breath. At [facility], he was noted to have acute kidney injury with creatinine 2.3 and elevated troponin at 3577. EKG revealed normal sinus rhythm without evidenceof ST elevation or depression. Negative for COVID-19 at [facility]. He was transferred to [facility] for further evaluation. Echocardiogram on December 30, 2021 revealed an EF of 45 to 50% and mild MR. 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 Cardiothoracic surgery was consulted for possible surgical myocardial vascularization. 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 Endocrine consult placed by [facility] for diabetic management. Longstanding type II diabetic with A1c of 8.4%. Currently residing at [facility] with orders in place for Humalog 32 [...] 10 units qhs, metformin 500 twice daily, Eebyblwut92zq qd and a 0-10 sliding scale with [...] by CASPER MURRY on 01/11/2022 11:35 AM [facility] [id number] Note ORIGINAL EXAMINATION: CT OF THE CHEST [...] Sign Date: 01/10/2022 4:43:27 PM Ordering Provider: [facility]07-25-2022 Endocrinology Progress note Date of Service [...] Weinstein on 12/24/2021-on prednisone. [facility] He presented to [facility] on December 30, 2021 due to a sudden onset of alteredmental status and shortness of breath. At [facility], he was noted to have acute kidney injury with creatinine 2.3 and elevated troponin at 3577. EKG revealed normal sinus rhythm without evidenceof ST elevation or depression. Negative for COVID-19 at [facility]. He was transferred to [facility] for further evaluation. Echocardiogram on December 30, 2021 revealed an EF of 45 to 50% and mild MR. 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 Cardiothoracic surgery was consulted for possible surgical myocardial vascularization. 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 Endocrine consult placed by [facility] for diabetic management. Longstanding type II diabetic with A1c of 8.4%. 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 He resides at [facility]. He presented on 12/30/2021 with sudden onset of altered mental status and shortness of breath. Troponin 3577. Creatinine elevated 2.3. He was transferred to [facility] for further evaluation. Echocardiogram completed showing EF [...] by NICHOLE RODRIGUEZ on 01/10/2022 08:37 AM [facility] [id number] Note Date of Service 01/09/2022 Repeat INR 6.3. Aquamephyton 10 mg SQ x1. Repeat INR in 4 hours. Digitally Signed by KASSIDY SHANKAR on 01/09/2022 02:03 PM [facility] [id number] Endocrinology Progress note Date of Service 01/09/22 [...] Weinstein on 12/24/2021-on prednisone. He resides at [facility] for[facility] past 3 months. He presented to [facility] on December 30, 2021 due to a sudden onset of alteredmental status and shortness of breath. At [facility], he was noted to have acute kidney injury with creatinine 2.3 and elevated troponin at 3577. EKG revealed normal sinus rhythm without evidenceof ST elevation or depression. Negative for COVID-19 at [facility]. He was transferred to [facility] for further evaluation. Echocardiogram on December 30, 2021 revealed an EF of 45 to 50% and mild MR. 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 Cardiothoracic surgery was consulted for possible surgical myocardial vascularization. 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 Endocrine consult placed by [facility] for diabetic management. Longstanding type II diabetic with A1c of 8.4%. 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 He resides at [facility]. He presented on 12/30/2021 with sudden onset ofaltered mental status and shortness of breath. Troponin 3577. Creatinine elevated 2.3. He was transferred to [facility] for further evaluation. Echocardiogram completed showing [...] Continue Central Line: For IV access Disposition: [place] Weight Current Weight Dosing Weight: 81.5 [...] baseline, plan follow-up with Dr. Montgomery from [place] at discharge currently NSR rate 60, Coumadin on hold secondary to elevated INR 4.8. 5. CKD (chronic kidney disease), stage III 6. AF (paroxysmal atrial fibrillation) Currently NSR rate 60, Coumadin on hold secondary to elevated INR 4.8.Repeat INR at noon. On amiodarone. Home amiodarone and Eliquis were both discontinued in August 2021 7. Diabetes Hgb A1c 8.4% Glucose 68-177, [place] [facility] following 8. HTN (hypertension) Blood [...] by KASSIDY SHANKAR on 01/09/2022 11:51 AM [facility] [id number] Note ORIGINAL EXAMINATION: TWO XRAY VIEWS OF [...] right basilar subsegmental atelectasis. Interpreted by: Sj aMntilla DO Preliminary Report By: Sj Mantilla DO Electronically signed By Sj Mantilla DO Dictated Date: 01/09/2022 7:46:00 AM Prelim Date: 01/09/2022 7:51:53 AM Sign Date: 01/09/2022 7:51:53 AM [facility] Note ORIGINAL EXAMINATION: TWO XRAY VIEWS [...] Date: 01/09/2022 7:51:53 AM [facility]ology Progress note Date of Service [...] Weinstein on 12/24/2021-on prednisone. [facility]. He presented to [facility] on December 30, 2021 due to a sudden onset of alteredmental status and shortness of breath. At [facility], he was noted to have acute kidney injury with creatinine 2.3 and elevated troponin at 3577. EKG revealed normal sinus rhythm without evidenceof ST elevation or depression. Negative for COVID-19 at [facility]. He was transferred to [facility] for further evaluation. Echocardiogram on December 30, 2021 revealed an EF of 45 to 50% and mild MR. 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 Cardiothoracic surgery was consulted for possible surgical myocardial vascularization. 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 Endocrine consult placed by [facility] for diabetic management. Longstanding type II diabetic with A1c of 8.4%. 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 He resides at [facility]. He presented on 12/30/2021 with sudden onset ofaltered mental status and shortness of breath. Troponin 3577. Creatinine elevated 2.3. He was transferred to [facility] for further evaluation. Echocardiogram completed showing [...] episodes of bradycardia. [facility] No complaints Objective Vitals and Measurements [...] baseline, plan follow-up with Dr. Montgomery from [facility] at discharge, Urineoutput 1100 cc last 24 hours 5. CKD (chronic kidney disease), stage III 6. AF (paroxysmal atrial fibrillation) Currently atrial fibrillation rate 90, Coumadin, amiodarone, patient had previously been on amiodarone and Eliquis but these were discontinued in August 2021 7. Diabetes Hgb A1c 8.4% Glucose 141-249, [place] [facility] following 8. HTN (hypertension) Blood [...] KASSIDY SHANKAR APRN-GURWINDER on 01/08/2022 11:02 AM [facility] [id number] Note ORIGINAL EXAMINATION: ONE XRAY VIEW OF [...] Sign Date: 01/08/2022 7:49:49 AM Ordering Provider: [facility]07-23-2022 Note ORIGINAL EXAMINATION: ONE XRAY VIEW [...] Sign Date: 01/08/2022 7:49:49 AM Ordering Provider: [facility]07-22-2022 Nephrology Progress note Date of Service [...] renal standpoint. Patient will follow with his admissions evaluator Dr. Montgomery in [place] on discharge. Discussed with patient. Digitally Signed by TAMIKA RODAS MD on 01/07/2022 12:42 PM [facility] [id number] Note ORIGINAL EXAMINATION: TWO XRAY VIEWS OF [...] Date: 01/07/2022 12:23:59 PM Ordering Provider: [facility]07-22-2022 Endocrinology Progress note Date of [...] Glucose, Capillary 01/06/2022 12:00:00 EDT 127 mg/dL NC 82-115 Glucose Testing Blood Glucose, Capillary 01/06/2022 11:02:00 EDT 116 mg/dL NC 82-115 EKG EKG - Discontinued -- 01/01/22 [...] Weinstein on 12/24/2021-on prednisone. He resides at [facility] forthe past 3 months. He presented to [facility] on December 30, 2021 due to a sudden onset of alteredmental status and shortness of breath. At [facility], he was noted to have acute kidney injury with creatinine 2.3 and elevated troponin at 3577. EKG revealed normal sinus rhythm without evidenceof ST elevation or depression. Negative for COVID-19 at [facility]. He was transferred to [facility] for further evaluation. Echocardiogram on December 30, 2021 revealed an EF of 45 to 50% and mild MR. 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 Cardiothoracic surgery was consulted for possible surgical myocardial vascularization. 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 Endocrine consult placed by [facility] for diabetic management. Longstanding type II diabetic with A1c of 8.4%. Currently residing at [facility] with orders in place for Humalog 32 [...] by CASPER MURRY on 01/07/2022 04:39 PM [facility] [id number] Note Date of Service 01/07/2022 Chief Complaint [...] of breath. He resides at [facility]. He denied having any chest pain or syncope. He was found to have an acute kidney injury at that time with creati nine of 2.3 and a troponin of 3577 at [facility]. He was transferred to [place] for further evaluation where an echocardiogram revealed [...] Central venous access: Left subclavian triple-lumen Disposition: [facility] Weight Current Weight Dosing Weight: 81.5 [...] 7. Diabetes Hgb A1c 8.4% Followed by [place] inpatient endocrinology. Glucoses ranging 96-1 55. On [...] by YIMI NEWELL on 01/07/2022 10:01 AM [facility] HospitalAvbqichh06-56-8216 Anesthesiology Consult note Patient: ELIZABETH MODI Age: [...] LINN RICHARD DO on 01/07/2022 08:18 AM [facility] HospitalLlhssrzp66-48-5452 Note ORIGINAL EXAMINATION: TWO XRAY VIEWS OF [...] Jose Roberto Grimaldo Electronically signed By Sj Mnatilla DO Dictated Date: 01/07/2022 8:00:09 AM Prelim Date: 01/07/2022 12:23:59 PM Sign Date: 01/07/2022 12:23:59 PM Ordering Provider: [facility]07-21-2022 Nephrology Progress note Date of Service 01/06/2022 [...] TAMIKA RODAS MD on 01/06/2022 10:19 AM [facility] [id number] Endocrinology Progress note Date of Service 01/06/22 [...] Weinstein on 12/24/2021-on prednisone. [facility] He presented to [facility] on December 30, 2021 due to a sudden onset of alteredmental status and shortness of breath. At [facility], he was noted to have acute kidney injury with creatinine 2.3 and elevated troponin at 3577. EKG revealed normal sinus rhythm without evidenceof ST elevation or depression. Negative for COVID-19 at [facility]. He was transferred to [facility] for further evaluation. Echocardiogram on December 30, 2021 revealed an EF of 45 to 50% and mild MR. Cardiac catheterization completed showing multivessel disease.Cardiothoracic surgery has been consulted for possible surgical myocardial vascularization. Endocrine consult placed by [facility] for diabetic management. Longstanding type II diabetic with A1c of 8.4%. Currently residing at [facility] with orders in place for Humalog 32 [...] by CASPER MURRY on 01/06/2022 04:03 PM [facility] [id number] Note Date of Service 01/06/2022 Chief Complaint [...] of breath. He resides at [facility]. He denied having any chest pain or syncope. He was found to have an acute kidney injury at that time with creati nine of 2.3 and a troponin of 3577 at [facility]. He was transferred to [place] for further evaluation where an echocardiogram revealed an EF of 45 to 50% and mild MR. This was followed upwith a heart catheterization which demonstrated multivessel disease. He was evaluated by Dr. Hernandez, preoperative work-up was obtained. On 01/05/2022 he had a CABG x1 with a MOLIAN to the LAD. He was transferred to [...] 1 45, on insulin drip per the [facility] ICU glycemic protocol at 8 units/h, endocrinology [...] by BARRERA SALES on 01/06/2022 07:42 AM [facility] HospitalJlwprkuq55-96-2014 Note ORIGINAL EXAMINATION: ONE XRAY VIEW OF [...] Date: 01/06/2022 6:18:00 AM [facility] Note ORIGINAL EXAMINATION: ONE XRAY VIEW OF [...] Sign Date: 01/06/2022 6:18:00 AM Ordering Provider: [facility] Cardiology Progress note Date of Service [...] CELIO CLAROS MD on 01/05/2022 02:25 PM [facility] HospitalTpyzqfvm35-74-7461 Nephrology Progress note Date of Service 01/05/2022 [...] TAMIKA RODAS MD on 01/05/2022 02:15 PM [facility] HospitalKgnbbwzk05-09-3773 Note ORIGINAL HISTORY: Line placement COMPARISON: 5 [...] Sign Date: 01/05/2022 1:24:35 PM Ordering Provider: [facility]07-20-2022 Note ORIGINAL HISTORY: Nasogastric tube placement COMPARISON: No FINDINGS: There is a nasogastric tube with tip in the stomach and side hole at the gastroesophageal junction. Interpreted by: Zack Bucio MD Preliminary Report By: Zack Bucio MD Electronically signed By Zack Bucio MD Dictated Date: 01/05/2022 1:22:43 PM Prelim Date: 01/05/2022 1:23:19 PM Sign Date: 01/05/2022 1:23:19 PM Ordering Provider: [facility]07-20-2022 Note ORIGINAL HISTORY: Line placement COMPARISON: [...] 01/05/2022 1:24:35 PM Ordering Provider: [facility]07-20-2022 Note ORIGINAL HISTORY: Nasogastric tube placement COMPARISON: No FINDINGS: There is a nasogastric tube with tip in the stomach and side hole at the gastroesophageal junction. Interpreted by: Zack Bucio MD Preliminary Report By: Zack Bucio MD Electronically signed By Zack Bucio MD Dictated Date: 01/05/2022 1:22:43 PM Prelim Date: 01/05/2022 1:23:19 PM Sign Date: 01/05/2022 1:23:19 PM Ordering Provider: [facility]07-20-2022 Cardiology Progress note Date of Service 01/05/22 [...] CELIO CLAROS MD on 01/05/2022 02:25 PM [facility] [id number] Anesthesiology Consult note Patient: ELIZABETH MODI Age: [...] kidney disease), stage III / SNOMED CT 0010864283 / Confirmed CAD (coronary artery disease) / SNOMED CT 85091940 / Confirmed Diabetes / SNOMED CT 617207276 / Confirmed History of Singh's palsy / SNOMED CT 936346339 / Confirmed HLD (hyperlipidemia) / SNOMED CT 75660084 / Confirmed HTN (hypertension) / SNOMED CT 1859567865 / Confirmed Hypothyroid / SNOMED CT 02053277 / Confirmed QUIN (acute kidney injury) / SNOMED CT 28575314 / Confirmed Mood disorder / SNOMED CT 90075033 / Confirmed NSTEMI (non-ST elevated myocardial infarction) / SNOMED CT 13216437 / Confirmed AF (paroxysmal atrial fibrillation) / SNOMED CT 669546285 / Confirmed PVD (peripheral vascular disease) / SNOMED CT 9552932352 / Confirmed Giant cell arteritis / SNOMED CT 8780977181 / Confirmed, Active Problems (24) AF (paroxysmal [...] been selected or recorded. Procedure history: Amputation ([id number]) in 2020 at 79 Years. Comments: 07/12/2021 14:23 Maria Esther Navarro RN Left below the knee Amputation ([id number]) in 2020 at 79 Years. Comments: 07/12/2021 14:24 Maria Esther Navarro RN right below the knee amputation Catheter ([id number]) in 2020 at 79 Years. Comments: 07/12/2021 14:25 Maria Esther Navarro RN Temporary dialysis cath None ([id number]). 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 Patient Dressed In Hospital gown [...] On and Limits Checked Nail Bed Color [place] Capillary Refill < 2 seconds Heart Sounds [...] Warm Temperature All Extremities Warm Skin Description [place], Normal for ethnicity, Dry Skin Integrity Pressure points intact Skin Turgor Elastic Mucous Membrane Color [place] Mucous Membrane Description Moist Sensory Perception Dre [...] Transport Mode Order Detail MTT with Monitor Wooden Fence Erector Details Form Wooden Fence Erector Details Form 01/05/2022 0:28 EDT Skin Assessment [...] Transport Mode Order Detail MTT with Monitor Wooden Fence Erector Details Form Wooden Fence Erector Details Form 01/04/2022 23:29 EDT heparin Begin [...] On and Limits Checked Nail Bed Color [place] Capillary Refill < 2 seconds Heart Sounds [...] Elimination Voiding, no difficulties All Extremity Description [place], Normal for ethnicity Skin Temperature Warm Temperature All Extremities Warm Skin Description [place], Normal for ethnicity Mucous Membrane Color [place] Mucous Membrane Description Moist Leg Bilateral Skin [...] On and Limits Checked Nail Bed Color [place] Capillary Refill < 2 seconds Heart Sounds [...] Facial Movement Symmetric resting/crying All Extremity Description [place], Normal for ethnicity Skin Temperature Warm Temperature All Extremities Warm Skin Description [place], Normal for ethnicity Skin Integrity Pressure points intact Skin Turgor Elastic Mucous Membrane Color [place] Mucous Membrane Description Moist Sensory Perception Dre [...] Symptoms Bruising Skin Temperature Warm Skin Description [place], Normal for ethnicity Skin Integrity Intact Skin Turgor Elastic Mucous Membrane Color [place] Mucous Membrane Description Moist Sensory Perception Dre [...] On and Limits Checked Nail Bed Color [place] Capillary Refill < 2 seconds Heart Sounds [...] Facial Movement Symmetric resting/crying All Extremity Description [place], Normal for ethnicity Skin Temperature Warm Temperature All Extremities Warm Skin Description [place], Normal for ethnicity Skin Integrity Pressure points intact Skin Turgor Non-Elastic Mucous Membrane Color [place] Mucous Membrane Description Moist Leg Bilateral Skin [...] mEq predniSONE 10 mg mg vitamin A 11710 unit(s) unit(s) 01/04/2022 8:39 EDT Heart Rate Monitored 59 bpm LOW Reason For Taking VItal Signs Routine Primary Pain Intensity 0 Primary Pain Nonverbal Response Nods No Pain Scale Type 0-10 Pain scale Monitor Alarms On and Limits Checked Nail Bed Color [place] Capill (more content not included)... [facility] HospitalRnwpviyu76-17-6341 Cardiology Progress note Date of Service 01/04/22 [...] CELIO CLAROS MD on 01/04/2022 02:59 PM [facility] HospitalCiukencj75-15-4952 Cardiology Progress note Date of Service 01/04/22 [...] CELIO CLAROS MD on 01/04/2022 02:59 PM [facility] HospitalQqbxniog94-81-9485 Endocrinology Progress note Date of Service 01/04/22 [...] Weinstein on 12/24/2021-on prednisone. [facility] He presented to [facility] on December 30, 2021 due to a sudden onset of alteredmental status and shortness of breath. At [facility], he was noted to have acute kidney injury with creatinine 2.3 and elevated troponin at 3577. EKG revealed normal sinus rhythm without evidenceof ST elevation or depression. Negative for COVID-19 at [facility]. He was transferred to [facility] for further evaluation. Echocardiogram on December 30, 2021 revealed an EF of 45 to 50% and mild MR. Cardiac catheterization completed showing multivessel disease.Cardiothoracic surgery has been consulted for possible surgical myocardial vascularization. Endocrine consult placed by CTS for diabetic management. Longstanding type II diabetic with A1c of 8.4%. Currently residing at [facility] with orders in place for Humalog 32 [...] CASPER MURRY APRN-GURWINDER on 01/04/2022 04:05 PM [facility] HospitalIkhuxlwv04-48-4615 Note ORIGINAL EXAMINATION: CTA OF THE NECK [...] 01/04/2022 9:39:34 AM Ordering Provider: BARRERA SALES [facility] [id number] Cardiology Progress note Date of Service 01/03/22 [...] CELIO CLAROS MD on 01/03/2022 06:35 PM [facility] HospitalNautebce07-36-2773 Note ORIGINAL EXAMINATION: CTA OF THE NECK [...] Date: 01/04/2022 9:39:34 AM Ordering Provider: [facility]07-18-2022 Nurse Progress note [address] CT, they said patient okay to come to CT with contrast after having metformin this AM 01/03/22. Pharmacy said to check with prescriber. Dr. Claros said patient okay to go to CT with contrast after taking metformin this AM 01/03/22. Digitally Signed by Macy Bolanos RN on 01/03/2022 04:45 PM [facility] HospitalRbqnandt18-63-6440 Cardiology Progress note Date of Service 01/03/22 [...] CELIO CLAROS MD on 01/03/2022 06:35 PM [facility] HospitalNggqdava90-32-3193 Nephrology Progress note Date of Service 01/03/2022 [...] TAMIKA RODAS MD on 01/03/2022 10:59 AM [facility] HospitalWesyfbwi74-35-0931 Endocrinology Progress note Date of Service 01/03/22 [...] Glucose, Capillary 01/03/2022 07:10:00 EDT 174 mg/dL NC 82-115 Glucose Testing Glucose Level 01/03/2022 03:44:00 EDT 157 mg/dL NC 82-115 Glucose Testing Blood Glucose, Capillary 01/02/2022 21:13:00 EDT 222 mg/dL NC 82-115 Glucose Testing Blood Glucose, Capillary 01/02/2022 16:20:00 EDT 247 mg/dL NC 82-115 Glucose Testing Blood Glucose, Capillary 01/02/2022 11:29:00 EDT 177 mg/dL NC 82-115 EKG No qualifying data available. Assessment/Plan [...] Weinstein on 12/24/2021-on prednisone. He resides at [facility] for[facility] past [facility] months. He presented to [facility] on December 30, 2021 due to a sudden onset of alteredmental status and shortness of breath. At [facility], he was noted to have acute kidney injury with creatinine 2.3 and elevated troponin at 3577. EKG revealed normal sinus rhythm without evidenceof ST elevation or depression. Negative for COVID-19 at [facility]. He was transferred to [facility] for further evaluation. Echocardiogram on December 30, 2021 revealed an EF of 45 to 50% and mild MR. Cardiac catheterization completed showing multivessel disease.Cardiothoracic surgery has been consulted for possible surgical myocardial vascularization. Endocrine consult placed by [facility] for diabetic management. Longstanding type II diabetic with A1c of 8.4%. Currently residing at [facility] with orders in place for Humalog 32 [...] by CASPER MURRY on 01/03/2022 11:17 AM [facility] HospitalBhhebbwu32-99-0014 Cardiology Progress note Date of Service 01/02/2022 [...] BILL ALMODOVAR MD on 01/02/2022 04:22 PM [facility] HospitalQeoeaxys17-01-0446 Cardiology Progress note Date of Service 01/02/2022 [...] BILL ALMODOVAR MD on 01/02/2022 04:22 PM [facility] HospitalCppmnoue23-08-5141 Endocrinology Progress note Date of Service 01/02/22 [...] Glucose, Capillary 01/01/2022 18:20:00 EDT 131 mg/dL NC 82-115 EKG EKG - Completed -- 12/30/21 [...] Weinstein on 12/24/2021-on prednisone. He resides at [facility] past 3 months. He presented to [facility] on December 30, 2021 due to a sudden onset of alteredmental status and shortness of breath. At [facility], he was noted to have acute kidney injury with creatinine 2.3 and elevated troponin at 3577. EKG revealed normal sinus rhythm without evidenceof ST elevation or depression. Negative for COVID-19 at [facility]. He was transferred to [facility] for further evaluation. Echocardiogram on December 30, 2021 revealed an EF of 45 to 50% and mild MR. Cardiac catheterization completed showing multivessel disease.Cardiothoracic surgery has been consulted for possible surgical myocardial vascularization. Endocrine consult placed by [facility] for diabetic management. Longstanding type II diabetic with A1c of 8.4%. Currently residing at [facility] with orders in place for Humalog 32 [...] same inpatient. Last 24 Hours: Met w/ show host/hostess; appreciate input and teaching. Current orders are in place for a 2-18 sliding scale with meals and at bedtime alone. Blood glucose this morning with the same 91. Discussed with CTS PRINTED CIRCUIT BOARDS SOLDER LEVELER Katelynn. OHS work-up continues. No definitive date for CABG. Add low-dose metformin 500 mg twice daily. Hold off on SGLT2 until postop. GLP analog could be considered outpatient. Reintroduction of basal IP as needed. Discussed with bedside RN Will continue to follow while inpatient. Time Spent Total time spent 25 minutes Digitally Signed by CASPER MURRY on 01/02/2022 01:55 PM [facility] HospitalOqncdmbj35-33-3011 Nurse Progress note A student nurse administered medications and completed assessments on this patient under my supervision this evening. Naeyli Beckham RN Digitally Signed by KAVIN Beckham on 01/02/2022 01:02 AM [facility] HospitalWkjhtqxh56-14-0698 Cardiology Progress note Date of Service 01/01/2022 [...] BILL ALMODOVAR MD on 01/01/2022 08:04 PM [facility] HospitalSufexazo59-53-1474 Cardiology Progress note Date of Service 01/01/2022 [...] BILL ALMODOVAR MD on 01/01/2022 08:04 PM [facility] HospitalRvffzmeh99-36-5902 Note I saw and evaluated the patient on 01/01/2022. I agree with the LASER SPECIALIST note of 12/31/2021. The patient is [...] TRINY HERNANDEZ MD on 01/01/2022 10:53 AM [facility] HospitalVhlabndw16-94-4504 Cardiothoracic surgery Consult note Date of Service [...] Weinstein on 12/24/2021-on prednison. He resides at [facility] for the past 3 months. He presented to [facility] on December 30, 2021 due to a sudden onset of altered mental status and shortness of breath. He endorses nonproductive cough. Denied any chest pain or syncope. At [facility], he was noted to have acute kidney injury with creatinine 2.3 and elevated troponinat 3577. EKG revealed normal sinus rhythm without evidence of ST elevation or depression. Negative for COVID-19 at [facility]. He was transferred to [facility] for further evaluation. Echocardiogram on December 30, 2021 revealed an EF of 45 to 50% and mild MR. Cardiac catheterization completed earlier today showing multivessel disease (official cath report pending at the time of this dictation). Cardiothoracic surgery has been consulted for possible surgical myocardial vascularization. Eliquis was discontinued per correction reports on September 01, 2021. Patient is [...] follows with Dr. Montgomery of nephrology in [place]. 5. AF (paroxysmal atrial fibrillation) Currently in [...] past medical history from EMR and transfer correction documentation, conducting ispf-fo-ehin visit with patient at bedside, and dictating [...] Patient denies Living arrangements: Currently lives at [facility] however lived at home prior [...] 17:21 EDT Digitally Signed by YIMI NEWELL APRN-INTERVENTIONAL RADIOLOGY RN on 12/31/2021 05:21 PM [facility] HospitalTmmxezwe91-73-2925 Endocrinology Consult note Date of Service 01/01/22 [...] Weinstein on 12/24/2021-on prednisone. He resides at [facility] for[facility] past [facility] months. He presented to [facility] on December 30, 2021 due to a sudden onset of alteredmental status and shortness of breath. At [facility], he was noted to have acute kidney injury with creatinine 2.3 and elevated troponin at 3577. EKG revealed normal sinus rhythm without evidenceof ST elevation or depression. Negative for COVID-19 at [facility]. He was transferred to [facility] for further evaluation. Echocardiogram on December [...] Managed by his PCP. Currently resides at [facility]. He is unable to [...] much for the food at [facility]. He reports weight of 156 p ounds [...] thyroid disease but does have orders per [facility] for levothyroxine 50 mcg daily and carries [...] Subcutaneous, achs, NOW, 0, 01/01/22 8:24:00 EDT [place] [employer] Diet Consult to Diabetes Education [...] Weinstein on 12/24/2021-on prednisone. [facility] He presented to [facility] on December 30, 2021 due to a sudden onset of alteredmental status and shortness of breath. At [facility], he was noted to have acute kidney injury with creatinine 2.3 and elevated troponin at 3577. EKG revealed normal sinus rhythm without evidenceof ST elevation or depression. Negative for COVID-19 at [facility]. He was transferred to [facility] for further evaluation. Echocardiogram on December 30, 2021 revealed an EF of 45 to 50% and mild MR. Cardiac catheterization completed showing multivessel disease.Cardiothoracic surgery michael consulted for possible surgical myocardial vascularization. Endocrine consult placed by CTS for diabetic management. Longstanding type II diabetic with A1c of 8.4%. Currently residing at [facility] with orders in place for Humalog 32 [...] by CASPER MURRY on 01/01/2022 03:38 PM [facility] HospitalZfwqhihu96-71-1016 Nephrology Progress note Date of Service 01/01/2022 [...] TAMIKA RODAS MD on 01/01/2022 09:57 AM [facility] HospitalVqlbwxwg86-88-7065 Nephrology Progress note Date of Service 01/01/2022 [...] TAMIKA RODAS MD on 01/01/2022 09:57 AM [facility] HospitalTtmgdlnr61-01-3257 Cardiothoracic surgery Consult note Date of Service [...] Weinstein on 12/24/2021-on prednison. He resides at [facility] for the past 3 months. He presented to [facility] on December 30, 2021 due to a sudden onset of altered mental status and shortness of breath. He endorses nonproductive cough. Denied any chest pain or syncope. At [facility], he was noted to have acute kidney injury with creatinine 2.3 and elevated troponinat 3577. EKG revealed normal sinus rhythm without evidence of ST elevation or depression. Negative for COVID-19 at [facility]. He was transferred to [facility] for further evaluation. Echocardiogram on December 30, 2021 revealed an EF of 45 to 50% and mild MR. Cardiac catheterization completed earlier today showing multivessel disease (official cath report pending at the time of this dictation). Cardiothoracic surgery has been consulted for possible surgical myocardial vascularization. Eliquis was discontinued per correction reports on September 01, 2021. Patient is [...] follows with Dr. Montgomery of nephrology in [place]. 5. AF (paroxysmal atrial fibrillation) Currently in [...] past medical history from EMR and transfer correction documentation, conducting ilju-ys-pwdl visit with patient at bedside, and dictating [...] Patient denies Living arrangements: Currently lives at [facility] however lived at home prior [...] by YIMI NEWELL on 12/31/2021 05:21 PM [facility] HospitalAiiubiuj23-09-1403 Nephrology Progress note Date of Service 12/31/2021 [...] TAMIKA RODAS MD on 12/31/2021 11:26 AM [facility] HospitalQkcfwskc61-22-2995 Note ORIGINAL EXAMINATION: ONE XRAY VIEW OF [...] 12/31/2021 8:13:17 AM Ordering Provider: FER AUSTIN [facility] HospitalStuvgjlw92-61-6228 History and physical note Date of Service 12/30/2021 Chief Complaint chest pain History of Present Illness This is a 81-year-old male, correction resident with prior history of atrial fibrillation, [...] have had a left heart catheterization at [facility] 1 year ago. Patient is a [...] has history of atrial fibrillation but per correction has not been on his Eliquis or [...] DE LEÓN MD on 12/30/2021 10:03 AM [facility] [facility] [id number] Evaluation + Plan noteExtracted from: Title:History and [...] has history of atrial fibrillation but per correction has not been on his Eliquis or [...] MILL Appointment Type:CV OV Hospital Follow Up [facility] 07-14-2022 Nephrology Consult note Date of Service 12/30/2021 Reason for Consultation Stage III CKD, needs clearance for cardiac catheterization. Referring Physician Dr. Hidalgo. History of Present Illness Mr. Modi is a very pleasant 81-year-old gentleman with past medical history of hypertension, diabetes, atrial fibrillation on anticoagulation, hypothyroidism who is a resident of nursing facility in [place]. Patient was sent to [facility] due to altered mental status. He was also having chest pain. Initial lab work done at [facility] showed elevated troponin in the range of 3000.Patient was diagnosed with acute non-STEMI. He was transferred to [facility] for further management. He also had acute renal failure with creatinine of around 2.3 at ER. Repeat blood work in [place] showed that his creatinine has improved to 1.9. Patient does have history of CKD and follows with Dr. Montgomery in [place]. Dr. Montgomery does not have privileges at [facility]. Renal consultation was requested for acute [...] diarrhea, abdominal pain. He has been at correction in [place] from July 2021. Per family he is going to be at the correction long-term. Patient developed c hest pain and altered mental status at correction for which he was sent to ER. Over there he was diagnosed with acute non-STEMI with elevated troponin levels and eventually transferred to [facility]. His home medication list includes JERO inhibitor. He was not on any NSAIDs at the [facility]. Review of all other systems is [...] baseline creatinine, follows with Dr. Montgomery in [place] Hyperlipidemia Atrial fibrillation Procedure/Surgical History Cardiac catheterization [...] TAMIKA RODAS MD on 12/30/2021 11:57 AM [facility] [id number] History and physical note Date of Service 12/30/2021 Chief Complaint chest pain History of Present Illness This is a 81-year-old male, correction resident with prior history of atrial fibrillation, [...] have had a left heart catheterization at [facility] 1 year ago. Patient is a [...] has history of atrial fibrillation but per correction has not been on his Eliquis or [...] DE LEÓN MD on 12/30/2021 10:03 AM [facility] [id number] Hospital Discharge instructions Follow Up Care 12/30/2021 04:59:03 With:HUNTER FALCON LASER SPECIALIST-INTERVENTIONAL RADIOLOGY RN Address: [address] [place] [address] [place] [address]- When:01/17/2022 13:30:00 Comments:please obtain a CXR 1 hour prior to your appt. With:Discharge to [facility] LOC [phone] Address:Unknown When:1-2 days With:KARL HIDALGO MD Address: [address] [place] [address] [facility] [place] [address]- When:02/15/2022 10:00:00 With:Cardiac Rehab- [facility] Address: [facility] [address] [place] [address]- When: Unknown Comments:The Cardiac Rehab department will call you to schedule you for phase 2. We left you a brochure withinformation about cardiac rehab. If you have any questions please call [phone]. [facility] 08-24-2021 History of Present illness Narrative* Thu Roche RN - 02/09/2021 11:33 AM EDT Discharge instructions given to pt and access rn at bedside. All questions answered. All belongingsat bedside. VSS. Pt resting comfortably, denies pain * Thu Roche RN - 02/09/2021 11:17 AM EDT Report called to Leighann VALE at [facility] * Thu Roche RN - 02/09/2021 11:08 AM EDT bricklayer's assistant to bedside * Thu Roche RN - 02/09/2021 11:03 AM EDT Pt arrived to [place] [address]. Attached to case monitor. VSS. costumer assistant updated * Lindsey Morales RN - 02/09/2021 8:33 AM EDT Notified anesthesia blood sugar is 284 * Jazmín Burton RN - 02/05/2021 4:[address] Vicente's office called and stated pt should not hold Eliquis nor Aspirin before surgery. Will include on pre-op instructions for facility. documented in this [facility] Work Phone: Anesthesiology Consult note* LINN [...] kidney disease), stage III / SNOMED CT 4760453232 / Confirmed CAD (coronary artery disease) / SNOMED CT 66389899 / Confirmed Diabetes / SNOMED CT 804036292 / Confirmed History of Singh's palsy / SNOMED CT 341931570 / Confirmed HLD (hyperlipidemia) / SNOMED CT 76077311 / Confirmed HTN (hypertension) / SNOMED CT 3263010424 / Confirmed Hypothyroid / SNOMED CT 73461573 / Confirmed QUIN (acute kidney injury) / SNOMED CT 24500460 / Confirmed Mood disorder / SNOMED CT 10931942 / Confirmed NSTEMI (non-ST elevated myocardial infarction) / SNOMED CT 58395935 / Confirmed AF (paroxysmal atrial fibrillation) / SNOMED CT 673462494 / Confirmed PVD (peripheral vascular disease) / SNOMED CT 6498763093 / Confirmed Giant cell arteritis / SNOMED CT 4619576280 / Confirmed, Active Problems (24) AF (paroxysmal [...] been selected or recorded. Procedure history: Amputation ([id number]) in 2020 at 79 Years. Comments: 07/12/2021 14:23 Maria Esther Navarro RN Left below the knee Amputation ([id number]) in 2020 at 79 Years. Comments: 07/12/2021 14:24 Maria Esther Navarro RN right below the knee amputation Catheter ([id number]) in 2020 at 79 Years. Comments: 07/12/2021 14:25 Maria Esther Navarro RN Temporary dialysis cath None ([id number]). 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 Patient Dressed In Hospital gown [...] On and Limits Checked Nail Bed Color [place] Capillary Refill < 2 seconds Heart Sounds [...] Warm Temperature All Extremities Warm Skin Description [place], Normal for ethnicity, Dry Skin Integrity Pressure points intact Skin Turgor Elastic Mucous Membrane Color [place] Mucous Membrane Description Moist Sensory Perception Dre [...] Transport Mode Order Detail MTT with Monitor Wooden Fence Erector Details Form Wooden Fence Erector Details Form 01/05/2022 0:28 EDT Skin Assessment [...] Transport Mode Order Detail MTT with Monitor Wooden Fence Erector Details Form Wooden Fence Erector Details Form 01/04/2022 23:29 EDT heparin Begin [...] On and Limits Checked Nail Bed Color [place] Capillary Refill < 2 seconds Heart Sounds [...] Elimination Voiding, no difficulties All Extremity Description [place], Normal for ethnicity Skin Temperature Warm Temperature All Extremities Warm Skin Description [place], Normal for ethnicity Mucous Membrane Color [place] Mucous Membrane Description Moist Leg Bilateral Skin [...] On and Limits Checked Nail Bed Color [place] Capillary Refill < 2 seconds Heart Sounds [...] Facial Movement Symmetric resting/crying All Extremity Description [place], Normal for ethnicity Skin Temperature Warm Temperature All Extremities Warm Skin Description [place], Normal for ethnicity Skin Integrity Pressure points intact Skin Turgor Elastic Mucous Membrane Color [place] Mucous Membrane Description Moist Sensory Perception Dre [...] Symptoms Bruising Skin Temperature Warm Skin Description [place], Normal for ethnicity Skin Integrity Intact Skin Turgor Elastic Mucous Membrane Color [place] Mucous Membrane Description Moist Sensory Perception Dre [...] On and Limits Checked Nail Bed Color [place] Capillary Refill < 2 seconds Heart Sounds [...] Facial Movement Symmetric resting/crying All Extremity Description [place], Normal for ethnicity Skin Temperature Warm Temperature All Extremities Warm Skin Description [place], Normal for ethnicity Skin Integrity Pressure points intact Skin Turgor Non-Elastic Mucous Membrane Color [place] Mucous Membrane Description Moist Leg Bilateral Skin [...] mEq predniSONE 10 mg mg vitamin A 91242 unit(s) unit(s) 01/04/2022 8:39 EDT Heart Rate Monitored 59 bpm LOW Reason For Taking VItal Signs Routine Primary Pain Intensity 0 Primary Pain Nonverbal Response Nods No Pain Scale Type 0-10 Pain scale Monitor Alarms On and Limits Checked Nail Bed Color [place] Capillary Refill < 2 seconds Heart Sounds [...] Facial Movement Symmetric resting/crying All Extremity Description [place], Normal for ethnicity Skin Temperature Warm Temperature All Extremities Warm Skin Description [place], Normal for ethnicity Skin Integrity Pressure points intact Skin Turgor Non-Elastic Mucous Membrane Color [place] Mucous Membrane Description Moist Leg Bilateral Wound [...] Transport Mode Order Detail MTT with Monitor Wooden Fence Erector Details Form Wooden Fence Erector Details Form 01/04/2022 7:11 EDT Blood Glucose, [...] Type 0-10 Pain scale Nail Bed Color [place] Capillary Refill < 2 seconds Heart Sounds [...] Facial Movement Symmetric resting/crying All Extremity Description [place], Normal for ethnicity Skin Temperature Warm Temperature All Extremities Warm Skin Description Normal for ethnicity Skin Integrity Pressure points intact Skin Turgor Non-Elastic Mucous Membrane Color [place] Mucous Membrane Description Moist Leg Bilateral Skin [...] Light Use Yes . Assessment and Plan [place] [employer] Anesthesiologists (ASA) physical status classification: [...] LINN RICHARD DO on 01/05/2022 07:59 AM [facility] Evaluation + Plan note Future Appointments Appointment Date:02/07/2022 01:00:00 PM Scheduled Provider:HUNTER FALCON Location:[facility] Appointment Type:CTS OV Post Op Follow Up Appointment Date:02/15/2022 10:00:00 AM Scheduled Provider: Location:[facility] Appointment Type:CV OV Hospital Follow Up Future Scheduled Tests Radiology* XR Chest 2 Views (PA & Lateral) 02/07/22 [facility] Evaluation note* Diagnosis Optic nerve edema- Primary Papilloedema, unspecified [facility] Vision changes- Primary Unspecified visual disturbance Photosensitivity Acute dermatitis due to solar radiation PVD (peripheral vascular disease) (HCC) Peripheral vascular disease, unspecified Type 2 diabetes mellitus with other specified complication, without long-term current use of insulin (HCC) 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 Encounter for long-term (current) use of steroids Vitamin D deficiency Unspecified vitamin D deficiency documented [facility] Diagnosis Onset Date Resolution Status Renal mass acute Calculous cholecystitis with obstruction resolved Choledocholithiasis resolved Cholecystostomy care acute Renal mass [facility] Work Phone: Evaluation note* Diagnosis Onset Date Resolution Status Renal mass acute Calculous cholecystitis with obstruction resolved Choledocholithiasis resolved Cholecystostomy care acute Renal mass acute Cholecystostomy care [facility] Work Phone: Evaluation note* Diagnosis Screening for genitourinary condition- Primary Screening for other and unspecified genitourinary condition Gross hematuria Left renal mass Unspecified disorder of kidney and ureter documented in this encounter [facility] note* Diagnosis Gross hematuria documented in this encounter [facility] note* Diagnosis Gross hematuria- Primary Screening for genitourinary condition Screening for other and unspecified genitourinary condition documented in this encounter [facility] note* Diagnosis Gross hematuria- Primary documented in this encounter [facility] note* Diagnosis Gross hematuria- Primary Left renal mass Unspecified disorder of kidney and ureter documented in this encounter [facility] noteNo assessment information availableShrin[facility] Work Phone: Hospital course Narrative No data available for this section [facility] Hospital Discharge instructions* Instructions* Ammy Vicente [...] next day as directed. 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 Yes January 11, 2024 7:47am Advance Directive Response Recorded Date/ Time Do you have a Healthcare Power of Instructional Writer? Yes October 15, 2024 5:49pm Name of Medical Power of Instructional Writer angelic yoonamelia durán October 15, 2024 5:49pm Hospital Course Note HNO ID: [id number] Author: Emily Prescott DO Service: General Surgery [...] (more content not included)... Note HNO ID: [id number] Author: Teo chase (Res) DO Roger Service: [...] W/WO CONTRST 1+ BODY Nikolai Fisher PA-C [address] [place] [address] [facility] [place] [address] Referral ID Status Reason Start Date Expiration Date Visits Requested Visits Authorized [id number] Authorized Auto-Generat ed Referral 06/25/2024 07/18/2025 1 1 Specialty Diagnoses / Procedures Referred By Barb t Referred To Contact Ophthalmology Diagnoses Vision changes Photosensitivity Procedures CONSULT TO OPHTHALMOLOGY OFFICE/OUTPATIENT [facility] 60-74 MINUTES Shana Ga MD [address] [place] [address] Referral ID Status Reason Start Date Expiration Date Visits Requested Visits Authorized [id number] Authorized PCP Requested Referral 09/01/2022 09/01/2023 1 [...] fall October 15, 2024 3:5 7pm FU OR WANTED SOONER THAN DECEMBER SO DIDN'T WANT VINEYARD TENDER October 16, 2024 7:59am LABWORK October 23, 2024 5:00am Reason for Visit Admit Date Fecal incontinence September 06, 2024 1:3 8pm S/P ERCP September 06, 2024 1:3 8pm Atherosclerotic heart diseas e of [place] coronary artery without angina pectoris October 16, [...] WANTED SOONER THAN DECEMBER SO DIDN'T WANT VINEYARD TENDER October 16, 2024 7:59am LABWORK October 23, [...] WANTED SOONER THAN DECEMBER SO DIDN'T WANT VINEYARD TENDER October 16, 2024 7:59am LABWORK October 23, 2024 5:00am JAIL LAB WORK November 07, 2024 5:0 0am LABWORK November 20, 2024 5:00a m Chief Complaint Admit Date LABWORK September 18, 2024 5:00 am Monthly Exam September 24, 2024 3:41 pm New Concern October 01, 2024 3:2 5pm fall October 15, 2024 3:5 7pm FU [place] WANTED SOONER THAN DECEMBER SO DIDN'T WANT VINEYARD TENDER October 16, 2024 7:59am LABWORK October 23, 2024 5:00am JAIL LAB WORK November 07, 2024 5:0 0am LABWORK November 20, 2024 5:00a m MONTHLY EXAM December 03, 2024 3:30 pm LABWOKR December 18, 2024 5:00a m Reason for Visit Admit Date Atherosclerotic heart diseas e of [place] coronary artery without angina pectoris October 16, 2024 7:59am Essential hypertension October 16, 2024 7:59am Hyperlipidemia October 16, 2024 7:5 9am Paroxysmal atrial fibrillation September 7:59am Chief Complaint Admit Date fall October 15, 2024 3:5 7pm FU [place] WANTED SOONER THAN DECEMBER SO DIDN'T WANT VINEYARD TENDER October 16, 2024 7:59am LABWORK October 23, [...] section and content) DATE CREATED AUTHOR 05/19/2020 [facility] DATE CREATED AUTHOR AUTHOR'S ORGANIZ ATION 05/21/2020 [facility] DATE CREATED AUTHOR AUTHOR'S ORGANIZ ATION 02/11/2021 [facility] DATE CREATED AUTHOR AUTHOR'S ORGANIZ ATION 08/05/2021 [facility] DATE CREATED AUTHOR AUTHOR'S ORGANIZ ATION 09/07/2021 [facility] DATE CREATED AUTHOR AUTHOR'S ORGANIZ ATION 04/15/2023 [facility] DATE CREATED AUTHOR AUTHOR'S ORGANIZ ATION 01/11/[address] [facility] ([place]) DATE CREATED AUTHOR AUTHOR'S ORGANIZ ATION 10/06/2024 [facility] DATE CREATED AUTHOR AUTHOR'S ORGANIZ ATION 01/15/2025 [facility] DATE CREATED AUTHOR AUTHOR'S ORGANIZ ATION 01/21/2025 [facility] DATE CREATED AUTHOR AUTHOR'S ORGANIZ ATION 04/27/2025 [facility] Scheduled Active and Recently Administ [...] prosecute any alcohol or drug abuse patient.[facility] HospitalIn the event this information is protected by the Federal Confidentiality of Alcohol and Drug Abuse Patient Records regulations: The Federal rules restrict any use of the information to criminally investigate or prosecute any alcohol or drug abuse patient.[facility] HospitalIn the event this information is protected by the Federal Confidentiality of Alcohol and Drug Abuse Patient Records regulations: The Federal rules restrict any use of the information to criminally investigate or prosecute any alcohol or drug abuse patient.[facility] HospitalIn the event this information is protected by the Federal Confidentiality of Alcohol and Drug Abuse Patient Records regulations: The Federal rules restrict any use of the information to criminally investigate or prosecute any alcohol or drug abuse patient.[facility] HospitalIn the event this information is protected by the Federal Confidentiality of Alcohol and Drug Abuse Patient Records regulations: The Federal rules restrict any use of the information to criminally investigate or prosecute any alcohol or drug abuse patient.[facility] HospitalIn the event this information is protected by the Federal Confidentiality of Alcohol and Drug Abuse Patient Records regulations: The Federal rules restrict any use of the information to criminally investigate or prosecute any alcohol or drug abuse patient.[facility] HospitalIn the event this information is protected by the Federal Confidentiality of Alcohol and Drug Abuse Patient Records regulations: The Federal rules restrict any use of the information to criminally investigate or prosecute any alcohol or drug abuse patient.[facility] HospitalIn the event this information is protected by the Federal Confidentiality of Alcohol and Drug Abuse Patient Records regulations: The Federal rules restrict any use of the information to criminally investigate or prosecute any alcohol or drug abuse patient.[facility] HospitalIn the event this information is protected by the Federal Confidentiality of Alcohol and Drug Abuse Patient Records regulations: The Federal rules restrict any use of the information to criminally investigate or prosecute any alcohol or drug abuse patient.[facility] HospitalIn the event this information is protected by the Federal Confidentiality of Alcohol and Drug Abuse Patient Records regulations: The Federal rules restrict any use of the information to criminally investigate or prosecute any alcohol or drug abuse patient.[facility] HospitalIn the event this information is protected by the Federal Confidentiality of Alcohol and Drug Abuse Patient Records regulations: The Federal rules restrict any use of the information to criminally investigate or prosecute any alcohol or drug abuse patient.[facility] HospitalIn the event this information is protected by the Federal Confidentiality of Alcohol and Drug Abuse Patient Records regulations: The Federal rules restrict any use of the information to criminally investigate or prosecute any alcohol or drug abuse patient.[facility] HospitalIn the event this information is protected by the Federal Confidentiality of Alcohol and Drug Abuse Patient Records regulations: The Federal rules restrict any use of the information to criminally investigate or prosecute any alcohol or drug abuse patient.[facility] HospitalIn the event this information is protected by the Federal Confidentiality of Alcohol and Drug Abuse Patient Records regulations: The Federal rules restrict any use of the information to criminally investigate or prosecute any alcohol or drug abuse patient.[facility] Care Teams (unrecognized sec tion [...] 2024 End: September 03, 2024 Christina Whipple PRINTED CIRCUIT BOARDS SOLDER LEVELER, PRINTED CIRCUIT BOARDS SOLDER LEVELER-C Attending Provider Active Start: September 03, 2024 End: September 03, 2024 Team Status: Inactive Member Role Status Dates Dr. Diana Salmeron MD Primary Care Provider Active Start: September 05, 2024 End: September 05, 2024 Christina Whipple PRINTED CIRCUIT BOARDS SOLDER LEVELER, PRINTED CIRCUIT BOARDS SOLDER LEVELER-C Attending Provider Active Start: September 05, 2024 [...] End: June 17, 2024 Christina Whipple NP PRINTED CIRCUIT BOARDS SOLDER LEVELER-C Attending Provider Active Start: June 17, 2024 [...] End: July 05, 2024 Christina Whipple NP PRINTED CIRCUIT BOARDS SOLDER LEVELER-C Attending Provider Active Start: July 05, 2024 End: July 05, 2024 Senior Firmware Engineer Relationship Specialty Start Date End Date Dexter Reyes Chi [address] [address] PCP - General Gerontology 12/06/19 Ryan Rodrigues MD [address] [place] [address] Infectious Diseases 12/06/19 Yadi White, DO [facility] [place] [address] Urology 04/28/20 Senior Firmware Engineer Relationship Specialty Start Date End Date Diana Salmeron MD [address] [place], [place] [id number] PCP - General Internal Medicine 09/01/22 Ryan Rodrigues MD [address] [place] [address] Infectious Diseases 12/06/19 Yadi White, [address] [address] Urology 04/28/20 Isac Lucas [address] [place], [place] [address] Referring Ophthalmology 06/27/22 Senior Firmware Engineer Relationship Specialty Start Date End Date Diana Salmeron MD [address] [place], [place] [address] PCP - General Internal Medicine 09/01/22 Ryan Rodrigues MD [address] [facility] [place] [id number] Infectious Diseases 12/06/19 Yadi White, DO [address] [place] [address] Urology 04/28/20 Isac Lucas [address] [place], [place] [address] Referring Ophthalmology 06/27/22 Senior Firmware Engineer Relationship Specialty Start Date End Date Diana Salmeron MD [address] [place], [place] [id number] PCP - General Internal Medicine 09/01/22 Ryan Rodrigues MD [address] [facility] [place] [address] Infectious Diseases 12/06/19 Yadi White [address] [place] [address] Urology 04/28/20 Isac Lucas [address] [place], [place] [address] Referring Ophthalmology 06/27/22 Team Status: Active Member [...] MD Attending Provider, Referring P rovider Active Senior Firmware Engineer Relationship Specialty Start Date End Date Diana Salmeron MD [address] [place] [address] PCP - General Internal Medicine 09/01/22 Ryan Rodrigues MD [address] [place] [place] [id number] Infectious Diseases 12/06/19 Yadi White DO [address] [place] [address] Urology 04/28/20 Isac Lucas [address] [place] [address] Referring Ophthalmology 06/27/22 Senior Firmware Engineer Relationship Specialty Start Date End Date Diana Salmeron MD [address] [id number] PCP - General Internal Medicine 09/01/22 Ryan Rodrigues MD [address] [place] [address] Infectious Diseases 12/06/19 Yadi White DO [address] [place] [address] Urology 04/28/20 Isac Lucas [address] [place] [address] Referring Ophthalmology 06/27/22 Senior Firmware Engineer Relationship Specialty Start Date End Date Diana Salmeron MD [address] [facility] [address] [place], [place] [id number] PCP - General Internal Medicine 09/01/22 Ryan Rodrigues MD [address] [facility] [place] [address] Infectious Diseases 12/06/19 Yadi White DO [facility] [place] [address] Urology 04/28/20 Isac Lucas [address] [place] [address] Referring Ophthalmology 06/27/22 Senior Firmware Engineer Relationship Specialty Start Date End Date Diana Salmeron MD [address] [place], [place] [id number] PCP - General Internal Medicine 09/01/22 Ryan Rodrigues MD [address] [place] [address] Infectious Diseases 12/06/19 Yadi White DO [address] [place] [address] Urology 04/28/20 Isac Lucas [address] [place], [place] [address] Referring Ophthalmology 06/27/22 Senior Firmware Engineer Relationship Specialty Start Date End Date Diana Salmeron MD [address] [place] [id number] PCP - General Internal Medicine 09/01/22 Ryan Rodrigues MD [address] [place] [address] Infectious Diseases 12/06/19 Yadi White DO [address] [place] [address] Urology 04/28/20 Isac Lucas [address] [place] [address] Referring Ophthalmology 06/27/22 Team Status: Inactive Member [...] Attending Provider Active Start: September 18, 2024 Senior Firmware Engineer Relationship Specialty Start Date End Date Diana Salmeron MD [address] [facility] Emily [place], [place] [address] PCP - General Internal Medicine 09/01/22 Ryan Rodrigues MD [address] [place] [address] [facility] [id number] Infectious Diseases 12/06/19 Yadi White DO [address] [place] [address] Urology 04/28/20 Isac Lucas [address] [place] [address] Referring Ophthalmology 06/27/22 Senior Firmware Engineer Relationship Specialty Start Date End Date Diana Salmeron MD [address] [facility] [place] [address] PCP - General Internal Medicine 09/01/22 Ryan Rodrigues MD [address] [facility] [place] [address] Infectious Diseases 12/06/19 Yadi White DO [address] [place] [address] Urology 04/28/20 Isac Lucas [address] [place] [address] Referring Ophthalmology 06/27/22 Team Status: Inactive Member [...] End: October 01, 2024 Christina Whipple NP, [employer]DER LEVELER-C Attending Provider Active Start: October 01, 2024 [...] 2024 End: September 03, 2024 Christina Whipple [employer]AR[employer] SOLDER LEVELER, [employer]DER LEVELER-C Attending Provider Active Start: September 03, 2024 End: September 03, 2024 Team Status: Inactive Member Role/Relationship Status Dates Dr. Diana Salmeron MD Primary Care Provider Active Start: September 05, 2024 End: September 05, 2024 Christina Whipple [employer]AR[employer] SOLDER LEVELER, [employer] SOLDER LEVELER-C Attending Provider Active Start: September 05, 2024 [...] End: October 01, 2024 Christina Whipple NP, [employer]AR[employer] LEVELER-C Attending Provider Active Start: October 01, 2024 [...] 2024 End: October 01, 2024 Christina Tickton [employer]AR[employer] SOLDER LEVELER, [employer]AR[employer] SOLDER LEVELER-C Attending Provider Active Start: October 01, 2024 [...] Attending Provider Active Start: December 18, 2024 Senior Firmware Engineer Relationship Specialty Start Date End Date Diana Salmeron MD [address] [facility] [address] [place] [address] PCP - General Internal Medicine 09/01/22 Ryan Rodrigues MD [address] [place] [address] Infectious Diseases 12/06/19 Yadi White DO [address] [place], [place] [address] Urology 04/28/20 Isac Lucas [address] [place], [place] [id number] Referring Ophthalmology 06/27/22 Team Status: Inactive Member [...] End: December 24, 2024 Christina Whipple NP [employer] LEVELER-C Attending Provider Active Start: December 24, 2024 End: December 24, 2024 Team Status: Active Member Role/Relationship Status Dates Dr. Diana Salmeron MD Primary Care Provider Active Start: January 20, 2025 Victor M DAVID MD Attending Provider Active Start: January 20, 2025 Team Status: Active Member Role/Relationship Status Dates Dr. Diana Slameron [...] Member Role: Primary Care Physician Address: Address: [address] [place] [address] Care Team Related Persons Name: ANGELIC SUE [...] W/WO CONTRST 1+ BODY Nikolai Fisher PA-C [address] [place] [id number] [facility] [place] [address] Referral ID Status Reason Start Date Expiration Date V isits Requested Visits Authorized [id number] Closed Auto-Generate d Referral 06/25/2024 07/18/2025 1 [...] BE BASED ON THE PRIMARY CLINICAL RECORDS. [employer] [facility]. provides no warranty or guarantee of the accuracy or completeness of information in this document.
[2025-06-17 07:45] LABS: Mucous, Urine 0 SEEN /hpf (<or=2+); Squamous Epithelial Cells - UA 0 SEEN /hpf (0-5)
[2025-06-17 07:54] LABS: Color, Urine Red (Yellow); Glucose, Dipstick Normal (Normal); Ketone-Dipstick 5 mg/dl (Negative); Leukocyte Esterase-Dipstick Negative /ul (Negative); Nitrite-Dipstick Negative (Negative); Occult Blood-Urine 250 /ul (Negative); Protein-Dipstick 500 mg/dl (Negative); Specific Gravity, Urine 1.015 (1.002-1.030); Urine Bilirubin Dipstick Negative (Negative)
[2025-06-17 07:55] LABS: Hematocrit 36.6 % (40-54); Hemoglobin 12.2 g/dL (13.0-16.5); Immature Granulocytes Count 0.190 X10^3/uL (0.0-0.0); Mean Corp Hgb Conc 33.3 g/dL (32-36); Mean Corpuscular Volume 85.9 fL (80-94); Mean Platelet Vol. 11.4 fl (6.2-12.0); NRBC Flagged by Analyzer 0 % (0-5); Platelet Count 168 K/mm3 (150-450); RBC Distribution Width CV 14.6 % (11.6-14.6); RBC Distribution Width SD 46.0 fl (35.1-43.9); Red Blood Count 4.26 M/mm3 (4.6-6.2); White Blood Count 9.7 K/mm3 (4.4-11.0)
[2025-06-17 08:07] LABS: Anion Gap 11 (7-18); BUN 38 mg/dL (4-19); BUN/Creat Ratio 19.5 RATIO (10-20); Calcium,Total 8.1 mg/dL (7.6-11.0); Carbon Dioxide 19.3 mmol/L (20.0-29.0); Chloride 106 mmol/L (96-106); Glucose 54 mg/dL (70-99); Potassium 4.6 mmol/L (3.5-5.1)
[2025-06-17 08:07] LABS: Red Blood Cells-Urine 5-10 SEEN /hpf (0-5)
== END ==
LOC: OLS.WHLEAS 05:00
PROVIDERS: PCP Internal Medicine; Visit Provider Internal Medicine
DX: J96.11 Chronic respiratory failure with hypoxia (principal); E11.40 Type 2 diabetes mellitus with diabetic neuropathy, unspecified; F03.90 Unspecified dementia, unspecified severity, without behavioral disturbance, psychotic disturbance, mood disturbance, and anxiety; N39.0 Urinary tract infection, site not specified
CPT/HCPCS: 36415; 80048; 81001; 85025; 87086; 87088

== ENCOUNTER → 2025-06-18 02:30 | Outpatient (REF) | payer MEDICARE, MEDICAID, SELFPAY ==
[2025-06-18 09:21] LABS: Color, Urine Brown (Yellow); Glucose, Dipstick Normal (Normal); Ketone-Dipstick 15 mg/dl (Negative); Leukocyte Esterase-Dipstick Negative /ul (Negative); Nitrite-Dipstick Negative (Negative); Occult Blood-Urine 250 /ul (Negative); Protein-Dipstick 500 mg/dl (Negative); Specific Gravity, Urine 1.015 (1.002-1.030); Urine Bilirubin Dipstick Negative (Negative)
== END ==
LOC: OLS.WHLEAS 02:30
PROVIDERS: PCP Internal Medicine; Visit Provider Internal Medicine
DX: J96.11 Chronic respiratory failure with hypoxia (principal); E11.40 Type 2 diabetes mellitus with diabetic neuropathy, unspecified; F03.90 Unspecified dementia, unspecified severity, without behavioral disturbance, psychotic disturbance, mood disturbance, and anxiety; N18.32 Chronic kidney disease, stage 3b
CPT/HCPCS: 81002; 87077; 87086; 87088; 87186